=== PATIENT | female | born 1965 | race Caucasian/White ===

== ENCOUNTER 2022-06-14 11:10 | Outpatient (CLI) | payer MEDICARE, OTHER, SELFPAY | END 2022-06-14 11:11 | disposition home or self-care (01) | LOC: AMB 06-20 09:42 | PROVIDERS: PCP Family Medicine; Visit Provider Family Medicine | DX: R41.82 Altered mental status, unspecified (principal); R47.81 Slurred speech; R53.1 Weakness | CPT/HCPCS: A0425; A0427 ==

== ENCOUNTER 2022-06-14 11:41 | Emergency (ER) | payer MEDICARE, OTHER, SELFPAY ==
[2022-06-14] VITALS (10 sets, daily range): BP systolic 101–130; BP diastolic 60–90; PULSE 61–79; RESP 14–16; TEMP 36.8; O2SAT 94–98
--- NOTE | 2022-06-14 12:27 | CRLHL7_ITS ---
For Patients: As a result of the Cures Act, medical imaging exams and procedure reports are released immediately into your electronic medical record. You may view this report before your referring provider. If you have questions, please contact your health care provider. INDICATION: Fall, slurred speech, recent surgery, history of stroke, neck pain. COMPARISON: CT head 10/29/2021. TECHNIQUE: CT of the head without IV contrast. Coronal and sagittal reconstructions. FINDINGS: No intracranial hemorrhage, mass effect, or evidence of acute infarct. No midline shift. No abnormal extra-axial fluid collections. Mild generalized cerebral volume loss. Normal caliber ventricular system. Chronic encephalomalacia in the right cerebellum and left occipital lobe. Orbits and extraocular muscles are symmetric. Tiny polyp or mucous retention cyst in the left sphenoid sinus. The paranasal sinuses and mastoid air cells are otherwise clear. Metallic surgical material adjacent to the right posterior C1 arch. No acute fracture identified. Soft tissues are unremarkable. IMPRESSION: : No acute intracranial findings. Please note that all CT scans at this facility use dose modulation, iterative reconstruction, and/or weight-based dosing when appropriate to reduce radiation dose to as low as reasonably achievable. Dictated by An Rausch MD @ 06/14/2022 2:43:40 PM (Electronically Signed)
--- NOTE | 2022-06-14 12:27 | CRLHL7_ITS ---
For Patients: As a result of the Cures Act, medical imaging exams and procedure reports are released immediately into your electronic medical record. You may view this report before your referring provider. If you have questions, please contact your health care provider. Indication: Fall, shoulder pain, recent surgery Comparison: Two views left shoulder June 07, 2022 Technique: AP and lateral views left shoulder were obtained. Findings: There is no displaced fracture or dislocation. Again seen is total shoulder arthroplasty without evidence of obvious hardware failure. The soft tissues are unremarkable. Impression: Stable postoperative changes of the left shoulder status post arthroplasty without evidence of obvious hardware failure. Dictated by Kiran Chang MD @ 06/14/2022 2:35:52 PM (Electronically Signed)
--- NOTE | 2022-06-14 12:27 | CRLHL7_ITS ---
For Patients: As a result of the Cures Act, medical imaging exams and procedure reports are released immediately into your electronic medical record. You may view this report before your referring provider. If you have questions, please contact your health care provider. Indication: Fall, slurred speech, recent surgery, history of stroke, neck pain. Technique: CT of the cervical spine without IV contrast. Coronal and sagittal reconstructions. Comparison: CT of the cervical spine 02/19/2021. Findings: Exam significantly limited by streak artifact from extensive spinal hardware. There is posterior instrumented fusion of C2-T3 with solid bony fusion of the C3-C7 vertebral bodies. Hardware appears intact. No definite acute fracture identified. No traumatic malalignment. Metallic surgical material adjacent to the right posterior C1 arch. No obvious spinal canal stenosis. No prevertebral soft tissue swelling. Chronic encephalomalacia in the right cerebellum. The mastoid air cells are clear. The thyroid gland appears enlarged. The lung apices are clear. Impression: 1. Significantly limited exam due to streak artifact. No definite acute fracture identified. 2. Intact posterior instrumented fusion of C2-C3. Please note that all CT scans at this facility use dose modulation, iterative reconstruction, and/or weight-based dosing when appropriate to reduce radiation dose to as low as reasonably achievable. Dictated by An Rausch MD @ 06/14/2022 2:54:54 PM (Electronically Signed)
--- NOTE | 2022-06-14 12:34 | ED.AMS ---
HPI - Altered Mental Status General Time Seen by Provider: 12:15 Date Seen: 06/14/22 Chief Complaint: Altered Mental Status Stated Complaint: Confusion Time Seen by Provider: 06/14/22 12:13 Source: patient, EMS and RN notes reviewed Mode of arrival: EMS Limitations: altered mental status History of Present Illness HPI narrative: Angie is a 57-year-old female with past history of acute stroke not currently on any anticoagulants who is brought emergency room by EMS from her home for slurred speech and weakness. Angie states that she has been getting gradually weak and that she spent most of the day yesterday in bed. Today when she got out of bed her weakness was much worse and she felt like her legs were going to give out. She notes that she has fallen 3 times most recently yesterday. She think she hit her head because the back of her head and her upper neck hurts. She denies numbness or tingling of the extremities. She also notes the onset of blurred vision yesterday. She states that her last stroke which was 1 year ago presented as blurred vision. Again, the blurred vision started yesterday. She denies chest pain, shortness of breath or a cough. She states that she has not really been taking her pain medication. She does use medical marijuana that is prescribed. She has not had fever or chills. Patient is supposed to take aspirin daily as a prevention for stroke but states that it no longer comes in her regular pill pack and therefore she had to go buy some and because it is not in her pill pack she forgets to take it. Patient notes that she has had previous stenting and has aneurysms. MD complaint: altered mental status and weakness Onset (ago): day(s) Timing confirmed by: caregiver (Home health nurse had spoken to EMS who then spoke to me.) Severity: moderate Consistency of symptoms: getting Worse Context: other (Patient on narcotics for shoulder but states that she has not taken them recently.) Related Data Home Medications Medication Instructions Recorded Confirmed aspirin 325 mg tablet,delayed 325 mg PO DAILY tab 06/07/22 06/07/22 release atorvastatin 80 mg tablet 80 mg PO .Bedtime tab 06/07/22 06/07/22 bupropion HCl 150 mg 24 hr tablet, 150 mg PO DAILY 06/07/22 06/07/22 extended release cholecalciferol (vitamin D3) 125 5,000 unit PO DAILY tab 06/07/22 06/07/22 mcg (5,000 unit) tablet cyanocobalamin (vitamin B-12) 5,000 mcg PO DAILY 06/07/22 06/07/22 2,500 mcg tablet esomeprazole magnesium 40 mg 40 mg PO DAILY cap 06/07/22 06/07/22 capsule,delayed release furosemide 40 mg tablet 40 mg PO QDAY tab 06/07/22 06/07/22 magnesium gluconate 27.5 mg 27.5 mg PO DAILY tab 06/07/22 06/07/22 magnesium (500 mg) tablet meclizine 25 mg tablet 25 mg PO QDAY tab 06/07/22 06/07/22 oxycodone 5 mg tablet 5 mg PO QID tab 06/07/22 06/07/22 pregabalin 300 mg capsule 600 mg PO BID cap 06/07/22 06/07/22 quetiapine 50 mg tablet 50 mg PO .Bedtime tab 06/07/22 06/07/22 rizatriptan 10 mg tablet 10 mg PO .As Needed PRN 06/07/22 06/07/22 ropinirole 2 mg tablet 2 mg PO .Bedtime 06/07/22 06/07/22 sumatriptan 5 mg/actuation nasal 5 mg INTRANASAL .As Needed PRN 06/07/22 06/07/22 spray tramadol 50 mg tablet 50 mg PO Q8H tab 06/07/22 06/07/22 zonisamide 100 mg capsule 300 mg PO BID cap 06/07/22 06/07/22 Previous Rx's Medication Instructions Recorded acetaminophen 650 mg 1,300 mg PO .Every 8 Hours #180 tab 06/08/22 tablet,extended release cetirizine 10 mg tablet 10 mg PO DAILY #90 tab 06/08/22 diphenhydramine HCl 25 mg tablet 25 - 50 mg PO Q6H PRN #100 tab 06/08/22 (Benadryl Allergy) fluoxetine 40 mg capsule 80 mg PO DAILY #60 cap 06/08/22 fluticasone furoate 200 1 inh INHALATION QDAY #30 ea 06/08/22 mcg/actuation blister powder for inhalation (Arnuity Ellipta) lamotrigine 200 mg tablet 200 mg PO BID #60 tab 06/08/22 valacyclovir 500 mg tablet 500 mg PO DAILY #90 tab 06/14/22 Allergies Allergy/AdvReac Type Severity Reaction Status Date / Time acyclovir Allergy Mild rash Verified 06/07/22 12:34 shingles like benzoin Allergy Mild rash, Verified 06/07/22 12:34 blisters, itching Cephalosporins Allergy Mild Rash Verified 06/07/22 12:34 penicillin V Allergy Mild Rash Verified 06/07/22 12:34 adhesive Allergy Unknown contact Verified 06/07/22 12:34 dermatitis to tape amoxicillin Allergy Unknown Rash Verified 06/07/22 12:34 baclofen Allergy Unknown Rash Verified 06/07/22 12:34 cefaclor Allergy Unknown Rash Verified 06/07/22 12:34 chlorhexidine Allergy Unknown contact Verified 06/07/22 12:34 dermatitis fentanyl Allergy Unknown Hallucinati Verified 06/07/22 12:34 ng gabapentin Allergy Unknown muscular Verified 06/07/22 12:34 twitch, slurred speech nortriptyline Allergy Unknown Palpitation Verified 06/07/22 12:34 s NSAIDS (Non-Steroidal Allergy Unknown gastric Verified 06/07/22 12:34 Anti-Inflamma bypass silver Allergy Unknown contact Verified 06/07/22 12:34 dermatitis Milk solids Allergy Intermediate Vomiting Uncoded 06/07/22 12:34 RACHEL Allergy Mild rash Uncoded 06/07/22 12:34 needing early removal Pollen Allergy Unknown runny nose Uncoded 06/07/22 12:34 Soy Allergy Allergy Unknown Uncoded 06/07/22 12:34 Sulfamethoxazole / Allergy Unknown nausea, GI Uncoded 06/07/22 12:34 trimethoprim upset dermbond AdvReac Unknown contact Uncoded 06/07/22 12:34 dermatitis Review of Systems Status of ROS: Reports: 10 or more systems reviewed and unremarkable except as noted in History and below Const: Reports: fatigue and malaise; Denies: fever or chills Eyes: Reports: blurry vision ENMT: Denies: throat pain or difficulty swallowing Cardio: Denies: chest pain, palpitations, swelling of feet/ankles or shortness of breath with exertion Resp: Denies: shortness of breath or cough GI: Denies: abdominal pain, vomiting, diarrhea or difficulty swallowing : Denies: painful urination or urinary frequency Musculo: Reports: other (Left shoulder pain. Recent surgery and recent fall) Neuro: Reports: headache (After her fall yesterday), weakness in extremities and lack of coordination; Denies: numbness in extremities or dizziness Endo: Reports: fatigue PFSH PFS Medical History Encounter for screening for severe acute respiratory syndrome coronavirus 2 (SARS-CoV-2) infection Herpes labialis History of cerebrovascular accident Surgical History History of abdominoplasty History of arthroplasty of both knees History of bilateral cataract extraction History of carpal tunnel release of both wrists (2016) History of cholecystectomy History of foot surgery History of gastric bypass (1999) History of left shoulder replacement History of mastopexy History of neck surgery History of nevus excision History of sinus surgery History of spinal surgery History of total hysterectomy with bilateral salpingo-oophorectomy (BSO) History of tubal ligation Status post insertion of spinal cord stimulator Family History (Updated 06/04/22 @ 10:08 by Michael Bojorquez) Family/Other Breast cancer Lung cancer Father Cancer Coronary artery disease Sister Congenital heart defect Mother Pancreatic cancer, Onset Age: 60 Social History (Updated 06/04/22 @ 10:09 by Michael Bojorquez) Narrative: medical marijuana use chronic narcotic use medical cannabis use tobacco use Smoking Status: Current every day smoker Do you use any of these nicotine containing products: None Second hand tobacco smoke exposure: No How often do you have a drink containing alcohol: never How often do you have six or more drinks on one occasion: Never AUDIT-C Alcohol total score: 0 Non-prescribed substance use: marijuana (any form) Exam Const: Vital Signs, click to edit/add: Vital Signs - 24 hr 06/14/22 11:41 06/14/22 11:45 06/14/22 13:05 Temperature 98.2 F Pulse Rate [Right Pulse Oximeter] 67 64 64 Respiratory Rate 16 14 Blood Pressure [Ri ght Upper Arm] 101/60 101/60 109/74 Pulse Oximetry 96 96 98 06/14/22 14:30 06/14/22 15:00 06/14/22 15:30 Temperature Pulse Rate [Right Pulse Oximeter] 61 65 65 Respiratory Rate 16 Blood Pressure [Ri ght Upper Arm] 124/73 125/90 H 117/82 Pulse Oximetry 95 98 95 06/14/22 16:00 06/14/22 16:30 06/14/22 17:00 Temperature Pulse Rate [Right Pulse Oximeter] 79 71 Respiratory Rate Blood Pressure [Ri ght Upper Arm] 130/65 116/86 125/69 Pulse Oximetry 94 06/14/22 17:30 Temperature Pulse Rate [Right Pulse Oximeter] 75 Respiratory Rate Blood Pressure [Ri ght Upper Arm] 128/86 Pulse Oximetry 97 Documenting provider has reviewed patient's vital signs: yes Common normals: no apparent distress and oriented x3 Exam limitations: altered mental status (Appears very sleepy and slurred speech but content of speech is appropriate) General appearance: other (Attempts to talk past questions normal for this particular patient.) Orientation/consciousness: Yes oriented to person, Yes oriented to place and Yes oriented to time Other: Patient appears to be very sleepy. However she answers all my questions with multiple sentences and with detail. She is trying to keep her eyes closed but does open them up when I ask. EOM is full and pupils are equal round reactive. Her visual field seems to be cut in the periphery right greater than left. No nystagmus noted. Eyebrow raise smile symmetrical. Patient has tenderness in the a septal scalp and to a lesser extent over the superior cervical spine. Heart with regular rate and rhythm and lungs are clear to auscultation. Door Manager strength on the upper extremities symmetrical on left upper shoulder she has a healing surgical wound. There is some mild erythema but it is not warm to the touch. Abdomen is soft nontender. Lower extremities are with multiple tattoos. No excessive swelling. Calves without tenderness. Patient is able to lift leg off the gurney but struggles to do so strength is 4/5 lower extremities. But ankle strength toe strength intact. HENMT: Common normals: normocephalic Head and scalp: normocephalic Eye: Common normals: PERRL and conjunctivae normal General eye: normal appearance of both eyes Alignment: alignment normal Periorbital: periorbital findings normal Eyelid: eyelids normal Conjunctiva: conjunctiva(e) normal Pupil: PERRL Other: Patient appears to have a right peripheral field cut. Neck & C-Spine: Common normals: supple and no meningeal signs General: trachea midline Cervical spine: cervical spine tenderness (At the extreme top) C1 and C2 Resp: Common normals: normal respiratory effort and clear to auscultation bilaterally Auscultation: clear to auscultation bilaterally Cardio: Common normals: regular rate Rate: regular rate GI: Common normals: soft to palpation and non-tender Palpation: soft : Common normals: no CVA tenderness Bladder/kidney exam: no CVA tenderness Back & Pelvis: Common normals: no CVA tenderness and no thoracic nor lumbar tenderness Extremity: Common normals: normal to inspection Neuro: [place] Coma Scale: document GCS findings Nitin coma scale eye opening: To sound (3) Nitin coma scale verbal response: Orientated (5) Nitin coma scale motor response: Obey commands (6) Nitin coma scale total score: 14 Common normals: oriented x3, CN's II-XII intact bilaterally and moves all extremities (Decreased strength 4/5 on the lower extremities.) Sensorium/orientation: oriented to person, oriented to place, oriented to time and somnolent Meningeal signs: no meningeal signs Cranial nerves: CN normal except as noted Speech: abnormal speech (Slurred) Details: slurred Deep tendon reflexes: Rt Triceps (C7): 1+, Lt Triceps (C7): 1+, Rt Patellar (L4): 1+ and Lt Patellar (L4): 1+ Plantar reflex: equivocal: right and left Pupil exam: Normal pupillary reactivity/response: bilateral Psych: Common normals: cooperative Appearance: other (Multiple full body tattoos) Thought content: normal thought content Memory/cognition: memory grossly intact Insight: fair Judgement: judgment good Skin: Common normals: no rashes or lesions noted General skin exam: no rashes or lesions noted Course Course Hospital Course: At this time patient presents with multiple issues. First she fell yesterday and does have headache and point tenderness. We will obtain head and cervical spine CTs. Secondly she is slurring her speech and has increasing lower extremity weakness. We do not have an exact time of onset for this and therefore out of the window for any lytic therapy. She does have a history of acute stroke and is not currently on any anti-platelet or anticoagulation therapy. appears to be under the influence but denies to me any alcohol or narcotic use recently. Laboratory values currently pending. Certainly she is not in a position where she can care for herself. Reevaluation(s) Reevaluation #1: Head CT is normal at this time. I do speak with patient and her speech is much improved and she is asking for something to eat. I have suggested that she stay tonight in the hospital in she is declining. Reexamination notes improvement of her peripheral vision but not complete resolution of the deficit. Upon further discussion patient tells me that this has been ongoing for approximately a year. She states that daily she will get blurred vision starting in her right eye and then moving to the left. He is also complaining of a headache at this time. Again head CT is reassuring. She states that the morphine did not help and she states that she really does not want to take oxycodone. In the past she has had success with ketamine although states that it did give her a dysphoric reaction. I have asked her to try this again today. We will pre treat with Ativan 0.5 mg IV and give 20 mg of ketamine over 30 minutes by IV. Reevaluation #2: Patient continues to improve and now is headache free. She had no reaction to the ketamine. Consultations Consultation #1: [facility] is consulted. Dr. Delaney has seen this patient in the past. At this time given the fact that Angie has had improvement of her symptoms is sitting up and eating he does not feel we need to pursue an emergent MRI but would suggest that as an outpatient. He would like me to relate to the patient that she should stop smoking and we should have her back on aspirins. Vital Signs Vital signs: Initial Vital Signs Pulse Rate 67 06/14/22 11:41 Blood Pressure 101/60 06/14/22 11:41 Blood Pressure Mean 73 06/14/22 11:41 Blood Pressure Position Supine 06/14/22 11:41 Pulse Oximetry 96 06/14/22 11:41 Oxygen Delivery Method 06/14/22 11:41 Vital Signs Pulse Rate 67 06/14/22 11:41 Blood Pressure 101/60 06/14/22 11:41 Pulse Oximetry 96 06/14/22 11:41 Temperature 98.2 F 06/14/22 11:45 Pulse Rate 75 06/14/22 17:30 Respiratory Rate 16 06/14/22 14:30 Blood Pressure 128/86 06/14/22 17:30 Pulse Oximetry 97 06/14/22 17:30 MDM - Altered Mental Status MDM Narrative Medical decision making narrative: 1. Altered mentation-now resolved. His presentation was such as what we would see with narcotic overuse although she states she has not use narcotics recently. She was certainly weak on her lower extremities but there was no focal weakness. Face was symmetrical and content of speech was appropriate. Patient had a reassuring head CT. Patient will follow-up with her primary for outpatient MRI. She will also need to start back on her aspirin daily because she is at risk for stroke. At this time no evidence of large acute stroke, head bleed, infection. Further she is resolved of her symptoms. 2. Headache/migraine-patient much improved after ketamine and Ativan administration. Morphine had initially been given and objectively seemed to help but patient states it did not make her headache go away. 3. Frequent falls-shoulder without evidence of acute injury. Encouraged the use of a cane or walker. 4. Disposition-I have asked patient to consider overnight hospitalization for further monitoring but she declines. She has a friend on the phone and they feel it is safe for her to go home. Of course return to the ER for worsening symptoms. Addendum: I did call patient at home but there was no answer and left a message to ensure that she starts back on her aspirin. We did discuss this earlier but I wanted to reinforce that. Again would have liked to have had her stay overnight for observation but she has declined. Medical Records Attestation: I reviewed the patient's medical records. Lab Data Attestation: I reviewed the patient's lab results. Labs: Lab Results 06/14/22 06/14/22 06/14/22 Range/Units 12:48 12:48 13:25 WBC 4.48 L (4.50-11.00) K/uL RBC 3.77 L (4.00-5.20) m/uL Hgb 10.0 L (12.0-16.0) gm/dL Hct 31.6 L (33.0-51.0) % MCV 84 (80-100) fL MCH 27 (26-34) pg MCHC 32 (32-36) gm/dL Plt Count 246 (140-440) K/uL Neut % (Auto) 59.6 (42.0-72.0) % Lymph % (Auto) 26.3 (20-44) % [facility] % (Auto) 9.4 (0.0-11.0) % Eos % (Auto) 3.8 (0.0-7.0) % Baso % (Auto) 0.9 (0.0-3.0) % Neut # (Auto) 2.70 (1.7-7.0) K/uL Lymph # (Auto) 1.20 (0.90-2.90) K/uL [facility] # (Auto) 0.40 (0.00-0.90) K/UL Eos # (Auto) 0.20 (0.00-0.50) K/uL Baso # (Auto) 0.00 (0.00-0.30) K/uL Abs Immat Gran (auto) 0.00 (0.00-0.30) K/uL Diff Slide Review Acceptable Review (Acceptable) Sodium 138 (135-149) mmol/L Potassium 4.2 (3.6-5.1) mmol/L Chloride 111 (96-114) mmol/L Carbon Dioxide 21 (20-32) mmol/L BUN 21 (7-30) mg/dL Creatinine 0.7 (0.5-1.5) mg/dL Estimated GFR 100 ml/min Glucose 96 (60-115) mg/dL Calcium 8.4 (8.4-10.6) mg/dL Total Bilirubin 0.2 (0.1-1.5) mg/dL AST 34 (12-35) U/L ALT 27 (4-35) U/L Alkaline Phosphatase 97 (40-150) U/L Total Protein 6.0 (6.0-8.3) g/dL Albumin 3.5 (3.3-5.0) g/dL Urine Color (Yellow) Urine Appearance (Clear) Urine pH (5.0-8.5) Ur Specific [place] (1.000-1.030) Urine Protein (Negative) Urine Glucose (UA) (Negative) Urine Ketones (Negative) Urine Blood (Negative) Urine Nitrite (Negative) Urine Bilirubin (Negative) Urine Urobilinogen (0.2-1.0) Ur Leukocyte Esterase (Negative) SARS-CoV-2 (PCR) Negative SARS-CoV-2 (Negative) Influenza Type A (PCR) Negative PCR FLU A (Negative) Influenza Type B (PCR) Negative PCR FLU B (Negative) 06/14/22 Range/Units 16:00 WBC (4.50-11.00) K/uL RBC (4.00-5.20) m/uL Hgb (12.0-16.0) gm/dL Hct (33.0-51.0) % MCV (80-100) fL MCH (26-34) pg MCHC (32-36) gm/dL Plt Count (140-440) K/uL Neut % (Auto) (42.0-72.0) % Lymph % (Auto) (20-44) % [facility] % (Auto) (0.0-11.0) % Eos % (Auto) (0.0-7.0) % Baso % (Auto) (0.0-3.0) % Neut # (Auto) (1.7-7.0) K/uL Lymph # (Auto) (0.90-2.90) K/uL [facility] # (Auto) (0.00-0.90) K/UL Eos # (Auto) (0.00-0.50) K/uL Baso # (Auto) (0.00-0.30) K/uL Abs Immat Gran (auto) (0.00-0.30) K/uL Diff Slide Review (Acceptable) Sodium (135-149) mmol/L Potassium (3.6-5.1) mmol/L Chloride (96-114) mmol/L Carbon Dioxide (20-32) mmol/L BUN (7-30) mg/dL Creatinine (0.5-1.5) mg/dL Estimated GFR ml/min Glucose (60-115) mg/dL Calcium (8.4-10.6) mg/dL Total Bilirubin (0.1-1.5) mg/dL AST (12-35) U/L ALT (4-35) U/L Alkaline Phosphatase (40-150) U/L Total Protein (6.0-8.3) g/dL Albumin (3.3-5.0) g/dL Urine Color Yellow (Yellow) Urine Appearance Clear (Clear) Urine pH 6.5 (5.0-8.5) Ur Specific [place] 1.020 (1.000-1.030) Urine Protein Negative (Negative) Urine Glucose (UA) Negative (Negative) Urine Ketones Negative (Negative) Urine Blood Negative (Negative) Urine Nitrite Negative (Negative) Urine Bilirubin Negative (Negative) Urine Urobilinogen 0.2 (0.2-1.0) Ur Leukocyte Esterase Negative (Negative) SARS-CoV-2 (PCR) (Negative) Influenza Type A (PCR) (Negative) Influenza Type B (PCR) (Negative) Imaging Data CT scan - head: Attestation: I have reviewed the pertinent imaging results. My impression: No evidence of acute bleed. Radiologist's impression: No acute findings. cervical spine: Attestation: I have reviewed the pertinent imaging results. My impression: I do not note any acute cervical injury. Radiologist's impression: No acute fractures. left shoulder: Attestation: I have reviewed the pertinent imaging results. Radiologist's impression: No acute injury. Discharge Plan Discharge Clinical Impression: Chronic pain, 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), Altered mental status Patient Disposition: Home, Self-Care Condition: Improved Additional Instructions: Recommend follow-up with your primary MD for outpatient MRI current [facility]. Use walker or cane to prevent falls. Return to the emergency room for worsening symptoms. Activity Level: Use Cane and Use Walker Prescriptions: No Action pregabalin 300 mg capsule 600 mg PO BID 0RF zonisamide 100 mg capsule 300 mg PO BID 0RF furosemide 40 mg tablet 40 mg PO QDAY 0RF sumatriptan 5 mg/actuation spray,non-aerosol 5 mg intranasal .As Needed PRN0RF Rx Instructions: 1-2 SPRAYS IN ONE NOSTRIL AT ONSET OF HEADACHE, MAY REPEAT Q2H PRN, MAX 4 SPRAYS/24 HRS rizatriptan 10 mg tablet 10 mg PO .As Needed PRN0RF Rx Instructions: TAKE ONE TAB AT ONSET OF HEADACHE, MAY REPEAT Q2H PRN, MAX 30 MG/24 HRS esomeprazole magnesium 40 mg capsule,delayed release(DR/EC) 40 mg PO DAILY 0RF quetiapine 50 mg tablet 50 mg PO .Bedtime 0RF ropinirole 2 mg tablet 2 mg PO .Bedtime 0RF aspirin 325 mg tablet,delayed release (DR/EC) 325 mg PO DAILY 0RF atorvastatin 80 mg tablet 80 mg PO .Bedtime 0RF bupropion HCl 150 mg tablet extended release 24 hr 150 mg PO DAILY 0RF magnesium gluconate 27.5 mg magne- sium (500 mg) tablet 27.5 mg PO DAILY 0RF cholecalciferol (vitamin D3) 125 mcg (5,000 unit) tablet 5,000 unit PO DAILY 0RF cyanocobalamin (vitamin B-12) 2,500 mcg tablet 5,000 mcg PO DAILY 0RF meclizine 25 mg tablet 25 mg PO QDAY 0RF oxycodone 5 mg tablet 5 mg PO QID 0RF tramadol 50 mg tablet 50 mg PO Q8H 0RF Arnuity Ellipta 200 mcg/actuation blister with device 1 inh inhalation QDAY Qty: 30 12RF diphenhydramine HCl [Benadryl Allergy] 25 mg tablet 25 - 50 mg PO Q6H PRN (Reason: allergy symptoms) Qty: 100 5RF lamotrigine 200 mg tablet 200 mg PO BID Qty: 60 12RF cetirizine 10 mg tablet 10 mg PO DAILY Qty: 90 3RF fluoxetine 40 mg capsule 80 mg PO DAILY Qty: 60 12RF acetaminophen 650 mg tablet extended release 1,300 mg PO .Every 8 Hours Qty: 180 12RF valacyclovir 500 mg tablet 500 mg PO DAILY Qty: 90 3RF Follow Up/Referrals: Clemente Blackwell MD [Primary Care Provider] - Stand Alone Forms: [facility] Info Instructions
[2022-06-14 12:58] LABS: Basophils Percent Auto 0.9 % (0.0-3.0); Eosinophils Percent Auto 3.8 % (0.0-7.0); Hematocrit 31.6 % (33.0-51.0); Lymphocytes Percent Auto 26.3 % (20-44); Mean Corpuscular HGB Conc 32 gm/dL (32-36); Mean Corpuscular Hemoglobin 27 pg (26-34); Mean Corpuscular Volume 84 fL (80-100); Monocytes Percent Auto 9.4 % (0.0-11.0); Neutrophils Percent Auto 59.6 % (42.0-72.0); Platelet Count* 246 K/uL (140-440); Red Blood Count 3.77 m/uL (4.00-5.20); White Blood Count* 4.48 K/uL (4.50-11.00)
[2022-06-14] MEDS: 0.9 % SODIUM CHLORIDE 1000 ml 1,000 ML IV (13:11)
[2022-06-14 13:12] LABS: Slide Review Reflex Yes
[2022-06-14 13:16] LABS: Albumin* 3.5 g/dL (3.3-5.0)
[2022-06-14 13:17] LABS: Chloride* 111 mmol/L (96-114); Potassium* 4.2 mmol/L (3.6-5.1); Sodium* 138 mmol/L (135-149)
[2022-06-14 13:19] LABS: Aspartate Amino Transferase* 34 U/L (12-35); Bilirubin Total* 0.2 mg/dL (0.1-1.5); Carbon Dioxide* 21 mmol/L (20-32); Creatinine* 0.7 mg/dL (0.5-1.5); Estimated Glomerular Filt Rate 100 ml/min
[2022-06-14 13:20] LABS: Alanine Aminotransferase* 27 U/L (4-35); Alkaline Phosphatase* 97 U/L (40-150); Blood Urea Nitrogen* 21 mg/dL (7-30); Calcium* 8.4 mg/dL (8.4-10.6); Glucose* 96 mg/dL (60-115)
[2022-06-14 13:54] LABS: Slide Review Acceptable Review (Acceptable)
[2022-06-14] MEDS: MORPHINE 4 MG/ML INJ IVP (14:24)
[2022-06-14 14:32] LABS: PCR FLU A Negative PCR FLU A (Negative); PCR FLU B Negative PCR FLU B (Negative)
[2022-06-14 14:34] LABS: SARS PCR* Negative SARS-CoV-2 (Negative)
[2022-06-14 16:31] LABS: Appearance Urine Clear (Clear); Bilirubin Urine Negative (Negative); Blood Urine Negative (Negative); Color Urine Yellow (Yellow); Glucose Urine Negative (Negative); Ketones Urine Negative (Negative); Leukocyte Esterase Urine Negative (Negative); Nitrite Urine Negative (Negative); Protein Urine Negative (Negative); Urobilinogen Urine 0.2 (0.2-1.0); pH Urine 6.5 (5.0-8.5)
[2022-06-14] MEDS: LORazepam 2 MG/ML inj 0.5 MG IVP (16:42)
[2022-06-14] MEDS: KETAMINE HCL 20 MG in 0.9 % SODIUM CHLORIDE 100 ml 100 ML 300.6 MG IVPB (16:46)
--- OUTSIDE RECORDS SUMMARY | 2022-07-06 14:46 | XMS_ITS | Encounter Summary ---
:1965 Author Organization [facility] Address [address] [place] [address] Care Team Providers Name Role Phone Elsewhere, Pcp Primary Care Provider Unavailable Encounter Details Date Type Department Care Team Description 05/18/2022 - Hospital Encounter [facility] Mable Polk In fection Of Left Shoulder In Infectious And Parasitic Diseases Classified Elsewhere (HCC) (Primary Dx); 05/20/2022 Hospital, [facility] Cyrus Souza M.D. Shoulder Joint Disorder Left; [place], [facility] [address] [facility] Pain Shoulder Left; Building, [place], [place] Primary Os teoarthritis Shoulder Left Floor [id number] [address] [facility] [phone] [place], [place] (Work) [phone] Social History Tobacco Use Types Packs/Day Years Used Date Smoking Tobacco: Every Day Cigarettes 0.3 30 S tarted: 11/28/1977 Smokeless Tobacco: Never Comments: Since teens, used to be 2 ppd, now 1/2 ppd. Roughly 40 pack year estimate Alcohol Use Standard Drinks/Week Comments No 0 (1 standard drink = 0.6 oz pure alcoho l) Daily caffeine Alcohol Habits Answer Date Recorded How often do you have a drink containing alcohol? Never 05/17/2022 How many drinks containing alcohol do you have on a Patient refused 10/02/2019 typical day when you are drinking? How often do you have six or more drinks on one Never 10/02/2019 occasion? Comment: Daily caffeine 12/30/2021 Social Isolation Answer Date Recorded In a typical week, how many times do you More than three abrahan es a week 05/17/2022 talk on the phone with family, friends, or neighbors? How often do you get together with friends More than three t imes a week 05/17/2022 or relatives? How often do you attend restoration or Patient refused 2021 moravian services? Do you belong to any clubs or No 05/17/2022 organizations such as restoration groups, unions, fraternal or athletic groups, or school groups? How often do you attend meetings of the Never 05/17/2022 clubs or organizations you belong to? Are you now , , , 05/17/2022 , never or living with a partner? Physical Activity Answer Date Recorded On average, how many days per week do you engage in moderate to 0 days 05/17/2022 strenuous exercise (like walking fast, running, jogging, dancing, swimming, biking, or other activities that cause a light or heavy sweat)? On average, how many minutes do you engage in exercise at th is 0 min 05/17/2022 level? Stress Answer Date Recorded Do you feel stress - tense, restless, nervous, or anxious, o r Very much 05/17/2022 unable to sleep at night because your mind is troubled all the time - these days? Financial Resource Strain Answer Date Recorded How hard is it for you to pay for the very basics like food, Very hard 03/24/2021 housing, medical care, and heating? Intimate Partner Violence Answer Date Recorded Within the last year, have you been afraid of your partner o r No 05/17/2022 ex-partner? Within the last year, have you been humiliated or emotionall y No 05/17/2022 abused in other ways by your partner or ex-partner? Within the last year, have you been kicked, hit, slapped, or No 05/17/2022 otherwise physically hurt by your partner or ex-partner? Within the last year, have you been raped or forced to have any No 05/17/2022 kind of sexual activity by your partner or ex-partner? Food Insecurity Answer Date Recorded Within the past 12 months, you worried that your food Someti mes true 05/17/2022 would run out before you got money to buy more. Within the past 12 months, the food you bought just Often tr ue 05/17/2022 didn't last and you didn't have money to get more. Transportation Needs Answer Date Recorded In the past 12 months, has lack of transportation kept you f rom Yes 05/17/2022 medical appointments or from getting medications? In the past 12 months, has lack of transportation kept you f rom Yes 05/17/2022 meetings, work, or getting things needed for daily living? Housing Stability Answer Date Recorded In the last 12 months, was there a time when you were not ab le Yes 03/24/2021 to pay the mortgage or rent on time? In the last 12 months, how many places have you lived? 1 03/24/2021 In the last 12 months, was there a time when you did not hav e a No 05/17/[address] to sleep or slept in a skilled nursing (including now)? Education Answer Date Recorded What is the highest level of school Associate degree: [employer], 03/24/2021 you have completed or the highest technical, or vocational p john degree you have received? Sex Assigned at Date Recorded Female 03/01/2019 10:12 AM CDT documented as of this encounter Last Filed Vital Signs Vital Sign Reading Time Taken Comments Blood Pressure 122/68 05/20/2022 12:35 PM CDT Pulse 98 05/20/2022 12:35 PM CDT Temperature 36.8 ??C (98.24 ??F) 05/20/2022 12:35 PM CDT Respiratory Rate 16 05/20/2022 12:35 PM CDT Oxygen Saturation 93% 05/20/2022 12:35 PM CDT Inhaled Oxygen Concentration - - Weight 66.1 kg (145 lb 11.6 oz) 05/18/2022 9:00 AM CDT Height 151 cm (4' 11.45) 05/18/2022 9:00 AM CDT Body Mass Index 28.99 05/18/2022 9:00 AM CDT documented in this encounter Discharge Summaries Kaushik Cadena M.D. - 05/20/2022 10:22 AM CDT DISCHARGE SUMMARY BRIEF OVERVIEW Hospital: [facility] Discharge Provider: Cyrus Polk M.D. Primary Team: RST Orthopedic Surgery - aJm Primary Care Providers: Elsewhere, Pcp (General) No address on file Primary Care Provider Phone Number: None Primary Care Provider Fax Number: None Other Providers: None Admission Date: 05/18/2022 Discharge Date: 05/20/22 PRINCIPAL DIAGNOSIS Primary Osteoarthritis Shoulder Left SECONDARY DIAGNOSES Principal Problem: Primary Osteoarthritis Shoulder Left Resolved Problems: * No resolved hospital problems. * Surgery Information This Encounter Past Procedures (05/19/2021 to Today) Date Procedures Providers Location 05/18/2022 ARTHROPLASTY REPLACEMENT TOTAL SHOULDER. Cyrus Polk M.D.Wasserburger, Jory N, M.D.Markos, James R, M.D. [facility] OR DISCHARGE DISPOSITION [place] [facility] [place]] ACTIVE ISSUES REQUIRING FOLLOW UP This document serves as a prescription to continue physical therapy, medications, and labs or x-raysif ordered/required. If you have any questions or concerns about surgery or upcoming appointments, please do not hesitateto contact Dr. Polk's office at [phone] during regular business hours (8am-5pm M-F). For emergencies on the weekend or after hours, you may contact Dr. Polk's service via the [facility] tenon machine operator at [phone]. Details for your 6 week follow-up appointment with Dr. Polk will be mailed to you. You will see Dr. Polk and the physical therapist at the post-op visit. If you have questions regarding this appointment please contact Dr. Polk's office. X-rays: If you are unable to make your follow up appointment you may have x-rays taken of your operative extremity and sent to Dr. Polk for review and to discuss future therapy. They should consistof the following 3 views: AP Internal, AP External and Axillary views. These may be done by an orthopedist or primary care provider. *This document serves as a prescription for these x-rays* Please send all correspondence and X-rays to: Cyrus Polk MD Dept of Orthopedics [address], [address] None OUTPATIENT FOLLOW UP For appointment details refer to your Patient Appointment Guide. TEST RESULTS PENDING AT DISCHARGE Pending Labs Order Current Status Bacteria Cult, Aerobe / Anaerobe+Susc In process Bacteria Cult, Aerobe / Anaerobe+Susc In process Bacteria Cult, Aerobe / Anaerobe+Susc In process Surgical Pathology, Frozen Lab Preliminary result DETAILS OF HOSPITAL STAY REASON FOR ADMISSION Shoulder Joint Disorder Left HOSPITAL COURSE Surgery Information This Encounter Past Procedures (05/19/2021 to Today) Date Procedures Providers Location 05/18/2022 ARTHROPLASTY REPLACEMENT TOTAL SHOULDER. Cyrus Polk M.D.Wasserburger, Jory N, M.D.Markos, James R, M.D. [facility] OR Angie Mosquera was taken to the operative room by Dr. Polk for the procedure listed above. The intraoperative as well as the immediate postoperative course were uncomplicated. For further details of the surgery please see the operative note. The patient was transferred from the PACU to the general care floor for continued observation and monitoring. She progressed in the usual post-operative fashion without complications. Physical exam was notablefor intact sensation and motor function of the operative extremity and easily palpable radial pulse.Incision clean, dry, and intact. She will be NWB in a sling for 6 weeks with no range of motion of the shoulder or elbow during this time period and no dangling. The patient was treated with perioperative IV antibiotics. She was given liquids by mouth and eventually advanced as tolerated towards a more general diet. Her pain was well controlled with oral pain medications. Physical therapy / Occupational therapy was consulted for assistance with mobilization and gait training. She was mobilizing without difficulty and was compliant with any activity restrictions. Her incision remained intact with noconcerns. Her bowel and bladder function were acceptable. She then met criteria for discharge and was later dismissed from the hospital. For any further details please see the most recent orthopedic surgery progress note and any other co-managing teams dated 05/19/2022. CONSULTS ORDERED DURING THIS ADMISSION IP CONSULT TO CARE MANAGEMENT IP CONSULT TO CARE MANAGEMENT CONDITION AT DISCHARGE stable Discharge instructions were provided to the patient and caregiver(s). documented in this encounter Medications at Time of Discharge Medication Sig Dispensed Refills Start Date End Date acetaminophen (TYLENOL) Take 2 capsules (1,000 0 01/01/2022 500 mg capsule mg total) by mouth every 6 (six) hours as needed for pain. Start the day of surgery. albuterol (PROVENTIL Inhale 2 puffs every 6 0 HFA,VENTOLIN HFA) 90 (six) hours as needed mcg/actuation inhaler for wheezing or shortness of breath. Arnuity Ellipta 100 Inhale 1 puff daily. 0 2021 mcg/actuation diskus inhaler aspirin 325 mg tablet Take 1 tablet (325 mg 0 12/2021 total) by mouth every evening. atorvastatin (LIPITOR) 80 Take 1 tablet (80 mg 90 tablet 3 02/17/2021 mg tablet total) by mouth at bedtime. benzonatate (TESSALON Take 100 mg by mouth 3 6 PERLES) 100 mg capsule (three) times a day as needed for cough. buPROPion XL (WELLBUTRIN Take 150 mg by mouth 0 0 02/04/2021 XL) 150 mg 24 hr tablet every morning. butalbital-acetaminophen- Take 1 tablet by mouth 0 02/27/2021 caff (ESGIC) 50-325-40 mg every 6 (six) hours as per tablet needed for migraine. cetirizine (ZyrTEC) 10 mg Take 10 mg by mouth 2 0 tablet (two) times a day. cholecalciferol (VITAMIN Take 125 mcg by mouth 0 D3) 125 mcg (5,000 Unit) every morning. tablet clindamycin (CLEOCIN T) 1 Apply 1 application 0 0 02/22/2022 % external solution topically 2 (two) times a day. Apply to face. cyanocobalamin, vitamin Take 1 tablet by mouth 0 01/28/2022 B-12, 2,500 mcg lozenge daily. diazePAM (VALIUM) 10 mg Take 10 mg by mouth 2 0 0 02/14/2019 tablet (two) times a day as needed. diclofenac sodium Apply 2-4 g topically 0 022 (VOLTAREN) 1 % gel 4 (four) times a day as needed. diphenhydrAMINE Take 75 mg by mouth at 0 (BENADRYL) 25 mg tablet bedtime. esomeprazole (NexIUM) 40 Take 40 mg by mouth 2 0 11/19/[address] capsule (two) times a day before breakfast and dinner. FLUoxetine (PROzac) 40 mg Take 80 mg by mouth 0 capsule every morning. furosemide (LASIX) 40 mg Take 40 mg by mouth 0 tablet daily. ipratropium-albuteroL Inhale 3 mL by 0 01/16/2021 (DUONEB) 0.5-2.5 mg/3 mL nebulization 4 (four) nebulizer solution times a day as needed for shortness of breath or wheezing. lamoTRIgine (LaMICtal) Take 200 mg by mouth 2 3 0 02/08/2019 200 mg tablet (two) times a day. MAG-G 27 mg magnesium Take 1 tablet by mouth 3 (500 mg) tablet at bedtime. meclizine (ANTIVERT) 25 Take 25 mg by mouth 0 mg tablet every 6 (six) hours as needed for dizziness. medical cannabis capsule Take 1-4 capsules by mouth 2 (two) times a day as needed (pain). THC component: 10 mg 0 CBD component: 0 mg medical cannabis oil Inhale as needed 0 inhalation (pain). Vape THC: 5 mg dose - per pt medical cannabis oil oral Take 1 each by mouth 0 as needed (pain). 1 spray as needed. 5 mg THC multivit-min/iron/folic/h Take 1 tablet by mouth 0 [id number] (HAIR, SKIN AND daily. NAILS ADVANCED ORAL) ondansetron ODT Take 1 tablet by mouth 0 01/16/20 10 (ZOFRAN-ODT) 8 mg 3 (three) times a day disintegrating tablet as needed for nausea. oxyCODONE (ROXICODONE) 10 Take 10 mg by mouth 0 0 02/24/2022 mg IR tablet every 4 (four) hours as needed for pain. oxyCODONE (ROXICODONE) 5 Take 1 tablet (5 mg 30 tablet 0 mg immediate release total) by mouth every tabletIndications: Acute 4 (four) hours as Pain, Acute Pain needed for severe pain Exception or score 7-10 of 10 Indication: Acute Pain, Acute Pain Exception. polyethylene glycol Take 17 g by mouth as 0 04/11 (MIRALAX) 17 gram/dose needed for oral powder constipation. pregabalin (LYRICA) 300 Take 600 mg by mouth 2 0 09/18/2020 mg capsule (two) times a day. QUEtiapine (SEROquel) 50 Take 50 mg by mouth at 0 08/19/2020 mg tablet bedtime. rOPINIRole (REQUIP) 2 mg Take 2 mg by mouth at 0 01/28/2022 tablet bedtime. sennosides-docusate Take 1 tablet by mouth 0 04/0 11/2021 sodium (SENOKOT-S) 8.6-50 2 (two) times a day. mg per tablet tiZANidine (ZANAFLEX) 4 Take 4-8 mg by mouth 1 mg tablet every 8 (eight) hours as needed for muscle spasms. Muscle spasms traMADoL (ULTRAM) 50 mg Take 1 tablet (50 mg 24 tablet 0 tabletIndications: Acute total) by mouth every Pain, Acute Pain 6 (six) hours as Exception needed for severe pain or score 7-10 of 10 Indications: Acute Pain, Acute Pain Exception. valACYclovir (VALTREX) Take 500 mg by mouth 0 500 mg tablet daily. zonisamide (ZONEGRAN) 100 Take 300 mg by mouth 2 8 02/22/2019 mg capsule (two) times a day. documented as of this encounter Progress Notes Jey Harper P.T., D.P.T. - 05/20/2022 12:01 PM CDT Physical Therapy Inpatient Treatment Note SUBJECTIVE Patient's Name: Angie Mosquera Referring/Attending: Cyrus Polk M.D. 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 patient was very excited about the prospect of getting an electric scooter. Patient Comments: Patient supine in bed upon therapist arrival; patient agreeable to therapy. Precautions Weight Bearing Status: Nonweightbearing left upper extremity Other Precautions: No shoulder elbow or wrist range of motion, no dangling. patient to be in immobilizer at all times unless bathing or changing clothes in order to reduce risk of dislocation Fall Risk (65 and older) Fall in the last 12 months: Yes Did you have an injury with the fall?: No Are you fearful of falling?: No Fall Risk Comments: Patient reports tripping as the primary reason for her falls in the last year, reports only bruising OBJECTIVE Angie's NOHARM modalities were used during their therapy session. Vitals stable per chart review. Patient denies dizziness, lightheadedness, shortness of breath, chest pain, and diaphoresis with mobility this session. Treatment consisted of: Bed Mobility - Supine to Sit Level of Assistance: Modified Independent Device: Head of bed elevated Bed Mobility - Sit to Supine Level of Assistance: Modified Independent Device: Head of bed elevated Sit to Stand Transfers # of Assistants: 1 Transfer Surface: Bed Transfer Equipment: Gait belt Level of Assistance: Supervision/set-up Assessment/Delivery: Assessed Comments: patient is able to complete sit to and from stand transfers without the need for physical assistance Stand to Sit Transfers # of Assistants: 1 Transfer Surface: Bed Transfer Equipment: Gait belt Level of Assistance: Supervision/set-up Assessment/Delivery: Assessed Gait Assessment/Training Distance (m): 70 m Surface: Even, Smooth/hard Device: Gait belt, Single point cane # of Assistants: 1 Level of Assistance: Supervision/Set-up Assessment of Gait: Patient ambulates with increased lateral trunk sway, and no left upper extremityswing due to sling. patient is able to appropriately utilize single-point cane for balance. Single-point cane was utilized during today's session as opposed to quad cane, as patient states she does notbelieve she owns a quad cane anymore, but owns a single-point cane. There appears to be no significant difference in patient's quality of gait with 1 versus the other. Patient and/or caregiver instructed and demonstrated understanding in the following: -Positioning in supine and sitting using folded towels under elbow -Positioning for sleeping to ensure appropriate support of surgical arm -Donning/doffing sling for axillary hygiene, and donning/doffing shirt (reviewed but not performed as patient is familiar from previous surgeries. patient states she is going to buy additional clothingthat she can slide on and off over the sling so that she does not have to don and doff sling) -Proper fitting and adjustment of the shoulder immobilizer -Donning/doffing and fitting of shower sling (reviewed but not performed as patient is familiar fromprevious surgeries) Patient's nurse was contacted and patient's status was discussed Patient was left in bed at end of session with call light in reach, all needs met and questions answered. Contact monitoring: PPE used during therapy: Therapist was wearing the following PPE throughout entire session: surgicalmask, eye protection and gloves Patient was wearing a mask during therapy session: yes Outcome Measures [facility] Inpatient Short Form: -[facility] Basic Mobility (V.2) How much help from another person do you currently need???If the patient hasn't done an activity recently, how much help from another person do you think he/she would need if he/she tried? 1. Turning from your back to your side while in a flat bed without using bedrails?: A Little 2. Moving from lying on your back to sitting on the side of a flat bed without using bedrails?: A Little 3. Moving to and from a bed to a chair (including a wheelchair)?: A Little 4. Standing up from a chair using your arms (e.g., wheelchair, or bedside chair)?: A Little 5. To walk in hospital room?: A Little 6. Climbing 3-5 steps with a railing?: A Little -[facility] Basic Mobility (V.2) Raw Score: 18 -[facility] Basic Mobility (V.2) Standardized Score: 41.05 Interpretation: Clinicians answer the [facility] Inpatient Short Form based on observed patient activityand/or clinical judgement (ie. patient can be scored without physically performing each activity) Based on scoring guidelines using the raw score value: Those going to home had an average score at or above 18 Those going to facility had an average score at or below 17 Assessment Discharge Therapy Needs - PT: No further skilled therapy Skilled therapy can include physical therapy provided by home health, outpatient clinic, or a post-acute facility. The location of these services is determined by the patient's care team in partnershipwith patient/family. Equipment Recommended - PT: Single-point cane owns Barriers to Discharge Home: Fall risk, Safety concerns From a physical therapy perspective, the level of care above has been recommended for Ms. Mosquera after hospital discharge. This level of care is based on her functional abilities during today's session. This may change throughout the hospital course and will be updated as appropriate. Clinical Impression of today's session: During today's session all home going self-care/home management tasks were reviewed, however most were not practiced, as patient is familiar from previous surgeries (to limit time out of sling immobilizer). Patient also demonstrates the ability to ambulate greater than household distances with appropriate use of single-point cane for balance. Education points described above. Patient reports feeling comfortable returning home at current mobility level and denies having any additional questions or need for therapy. All acute PT goals met; from a mobility standpoint patient is safe to discharge home with use of single- point cane and intermittent assistance for dressing and bathing. Dismissed from Physical Therapy. Rehab potential: Ms. Mosquera has Good potential to achieve established physical therapy goals withinthe time frame outlined below. Progress: All PT goals achieved Functional Goals and Timeframes: PT Inpatient Goals PT Goal #1: Patient will be able to perform bed mobility per home setup with supervision to improve functional independence. PT Goal #1 Status: Achieved PT Goal #2: Patient and helper will be able to teach back with demonstration the seated edge of bed technique with the use of pillows to support the arm for shirt, shower sling and daily sling donning and doffing. PT Goal #2 Status: Achieved PT Goal #3: Patient will ambulate 35m with least restrictive gait aid with supervision assist for improved independence with mobility and to return to prior level of function. PT Goal #3 Status: Achieved Plan Treatment Plan: Plan: Discontinue PT PT Frequency: PT Inpatient Duration : Until goals are met or hospital discharge Requires Inpatient Follow-Up: No PT Plan Comments: Patient does not require follow-up as all acute therapy goals are met Treatment interventions may include: Treatment/Interventions: Therapeutic exercise, Therapeutic functional activity, Self-care/home management Billing: Time Spent with Patient Therapeutic Interventions Therapeutic Activity (min): 27 min Time Tracking Total Timed Units (min): 27 min Total Treatment Time (min): 27 min Jey Harper P.T., D.P.T. Kaushik Cadena M.D. - 05/20/2022 7:31 AM CDT SUBJECTIVE Angie J. Demetri was examined in her hospital room this morning and this afternoon. She did better overnight with pain control improved. Her hemoglobin this morning is 8.4 and she is asymptomatic. Shehas done well with PT/OT. Denies chest pain, shortness of breath, fever, chills, nausea, vomiting. Voiding independently. Tolerating p.o. well. OBJECTIVE VITAL SIGNS Temperature: [36.2 ??C-36.7 ??C] 36.7 ??C Resp Rate: [12-14] 12 Blood Pressure: (77-127)/(51-101) 121/101 SpO2: [95 %-99 %] 98 % Pulse Rate: [57-84] 84 I/O last 3 completed shifts: In: 742 [P.O.:742] Out: 350 [Urine:350] PHYSICAL EXAM General: Resting in bed. Answers questions appropriately. Musculoskeletal: Operative extremity with sling immobilizer in place. Incision clean, dry, and intact with Steri-Strips in place. Dressing changed to Aquacel as patient had itching with Prim[place]. Intact median, radial and ulnar motor function. Sensation intact in axillary, radial, median, and ulnar nerve distributions. Palpable radial pulse. Fingers warm and well-perfused. DIAGNOSTICS Recent Results (from the past 24 hour(s)) CBC with Differential, Blood Collection Time: 05/20/22 3:43 AM Result Value Hemoglobin 8.4 (L) Hematocrit 27.1 (L) Erythrocytes 3.50 (L) MCV 77.4 (L) RBC Distrib Width An accurate RDW can not be determined. Platelet Count 256 Leukocytes 5.8 Neutrophils 4.07 Lymphocytes 1.26 Monocytes 0.39 Eosinophils 0.11 Basophils <0.03 IMAGING No results found. ASSESSMENT / PLAN IMPRESSION/REPORT/PLAN #1 s/p revision left reverse total shoulder arthroplasty Ms. Mosquera is doing well on POD#2. Her pain control is improved and we have a good plan in place for postoperative pain control on top of her chronic pain regimen. Incision is CDI and dressing changedto Aquacel due to itching which should be removed after 5 days. Her neurovascular exam is fully intact. Hemoglobin is 8.4 this morning and she is asymptomatic from an anemia perspective. She will continue ot be NWB LUE for 6 weeks in a sling immobilizer at all times with no ROM or dangling. She can come out of this for showers in a shower sling but should have this on otherwise. We will plan to discharge today after working with PT/OT again. She should follow up with her PCP regarding an electric scooter for community ambulation as there is no clear indication for this with her shoulder surgery. Active Issues # Acute blood loss anemia - last Hgb 8.4, asymptomatic # postoperative pain control - no longer requiring IV pushes Activity: NWB operative extremity. No ROM or dangling. Sling immobilizer for 6 weeks. May use showersling but otherwise should remain in sling immobilizer. Labs: Hgb 8.4 asymptomatic Pain: multimodal regimen including cold compress, acetaminophen and oxycodone prn VTE Prophylaxis: pharmacoprophylaxis not indicated, recommend early ambulation and SCD's Cultures: NGTD Antibiotics: 24-hour perioperative course of IV antibiotics Diet: Adult Diet Regular Discharge Diet for Adults Bowel Regimen: Sennakot S Imaging: postop X-rays obtained and reviewed which demonstrate a well positioned revision left reverse total shoulder arthroplasty Consults: PT/OT Anticipated Disposition: home today 05/20 Miguelina Cadena M.D. PGY-1 Orthopaedic Surgery For any questions or concerns from 6 am until 6 pm, please page [facility] at [phone] For urgent matters from 6 pm until 6 am, please page [facility] at [facility] [phone] Jane Nguyen Pharm.D., R.Ph. - 05/19/2022 8:12 AM CDT Pharmacist Progress Note Reason for admission: ARTHROPLASTY REPLACEMENT TOTAL SHOULDER. on 05/18/2022 Past Medical History: Diagnosis Date ??? Anemia hx iron infusions ??? Anxiety Generalized Disorder ??? Arthritis ??? Asthma NOS ??? Cardiac Disease Hx PFO ??? Chronic Pain Syndrome ??? Fibromyalgia ??? Gastroesophageal Reflux Disease NOS ??? Migraine Headache ??? Pain Back ??? Personal History Unintended Awareness Under General Anesthesia ??? Post Operative Nausea/Vomiting ??? Sickness Motion Personal History ??? Stroke (HCC) 03/2019 ??? Transient Ischemic Attack OBJECTIVE ARTHROPLASTY REPLACEMENT TOTAL SHOULDER. on 05/18/2022 - Pain: Pain 8-10/10. Acetaminophen scheduled with tramadol, oxycodone and hydromorphone (IV) available as needed. Ketorolac 15 mg IV Q6h x4 doses. Prior to admission 600 mg BID pregabalin resumed. - Bowel regimen: Senna-Doc twice daily schedules with additional agents available as needed. Prophylaxis: - Surgical site infection: Ancef 2 g IV q8h x24 hrs - VTE: none-upper extremity - GI: pantoprazole 40 mg BID Home medications: - Held: prns, vitamins, creams, diclofenac gel, benadryl at bedtime, tizanidine, Cetirizine, aspirin - Changed: esomeprazole substituted with pantoprazole, furosemide 40 mg daily changed to BID - Patient own medications: None ASSESSMENT / PLAN Summary & Recommendations: - Consider resuming prior to admission aspirin due to history of stroke in 2020 -: Furosemide ordered as 40 mg BID which matches prescription and fill history, but after speaking to patient, she said that she will refuse the evening dose and only takes it once a day at home. -Continue excellent post operative cares. - Changes to medications anticipated at discharge: Adding pain and bowel regimen. - No pharmacotherapeutic barriers to discharge from the hospital are identified at this time. Jane Nguyen Pharm.D., R.Ph. [phone] Kaushik Cadena M.D. - 05/19/2022 7:34 AM CDT SUBJECTIVE Angie Mosquera was examined in her hospital room this morning and this afternoon. She had no acute events overnight. Pain control is a challenge, endorsing 10/10 pain and requiring adjustments to her pain regiment and IV pushes. Denies chest pain, shortness of breath, fever, chills, nausea, vomiting. Voiding independently. Tolerating p.o. well. AM labs notable for Hgb of 7.6 constituting anemia. We will monitor. BMP unremarkable. OBJECTIVE VITAL SIGNS Temperature: [36.3 ??C-36.9 ??C] 36.3 ??C Resp Rate: [12-16] 14 Blood Pressure: (87-127)/(55-88) 127/74 SpO2: [89 %-99 %] 99 % Flow Rate (L/min): [0 L/min] 0 L/min Pulse Rate: [58-74] 58 I/O last 3 completed shifts: In: 1620 [P.O.:620] Out: 1600 [Urine:1500; Blood:100] PHYSICAL EXAM General: Resting in bed. Answers questions appropriately. Musculoskeletal: Operative extremity with sling immobilizer in place. Surgical dressings clean, dry,and intact without strikethrough. Intact median, radial and ulnar motor function. Sensation intact in axillary, radial, median, and ulnar nerve distributions. Palpable radial pulse. Fingers warm and well-perfused. DIAGNOSTICS Recent Results (from the past 24 hour(s)) Basic Metabolic Panel Collection Time: 05/19/22 3:26 AM Result Value Potassium, S 4.2 Sodium, S 137 Chloride, S 105 Bicarbonate, S 24 Anion Gap 8 BUN (Blood Urea Nitrogen), S 13 Creatinine, S 0.70 eGFR-Non Black/ >90 eGFR-Black/ >90 Calcium, Total, S 9.1 Glucose, S 153 (H) CBC with Differential, Blood Collection Time: 05/19/22 3:26 AM Result Value Hemoglobin 7.6 (L) Hematocrit 25.5 (L) Erythrocytes 3.28 (L) MCV 77.7 (L) RBC Distrib Width 23.6 (H) Platelet Count 269 Leukocytes 7.9 Neutrophils 6.39 Lymphocytes 1.01 Monocytes 0.50 Eosinophils <0.03 Basophils <0.03 IMAGING No results found. ASSESSMENT / PLAN IMPRESSION/REPORT/PLAN #1 s/p revision left reverse total shoulder arthroplasty Ms. Mosquera is doing alright on POD #1. Pain control has been a challenge, endorsing 10/10 pain and requiring adjustments to her pain regiment and IV pushes. This is not surprising given her history ofchronic pain and multiple operations on this extremity. Additionally, AM labs notable for Hgb of 7.6 constituting anemia. We will monitor. BMP unremarkable. She did work this PT/OT this afternoon and did well. She will continue ot be NWB LUE for 6 weeks in a sling immobilizer at all times with no ROM or dangling. She can come out of this for showers in a shower sling but should have this on otherwise. Active Issues # Acute blood loss anemia - monitor CBC and transfuse as needed. Last Hgb 7.6. # postoperative pain control - requiring IV pain medications Activity: NWB operative extremity. No ROM or dangling. Sling immobilizer for 6 weeks. May use showersling but otherwise should remain in sling immobilizer. Labs: Hgb 7.6. BMP unremarkable. Pain: multimodal regimen including cold compress, acetaminophen and oxycodone prn VTE Prophylaxis: pharmacoprophylaxis not indicated, recommend early ambulation and SCD's Cultures: NGTD Antibiotics: 24-hour perioperative course of IV antibiotics Diet: Adult Diet Regular Discharge Diet for Adults Bowel Regimen: Sennakot S Imaging: postop X-rays obtained and reviewed which demonstrate a well positioned revision left reverse total shoulder arthroplasty Consults: PT/OT Anticipated Disposition: home 05/20 Miguelina Cadena M.D. PGY-1 Orthopaedic Surgery For any questions or concerns from 6 am until 6 pm, please page [facility] [[email or web address]] at [phone] For urgent matters from 6 pm until 6 am, please page [facility] at [facility] [phone] Paco Valentine - 05/18/2022 9:47 AM CDT Encounter: AM Admit Deanna Tradition: No moravian affiliation. Ms. Mosquera did not express any spiritual needs at this time. Plan: Will remain available for spiritual care as needed or requested. [phone] ([facility]). Rodrigo Preston, Pharm.D., R.Ph. - 05/18/2022 9:17 AM CDT Images from the original note were not included. Admission Medication History Note Adherence issues: Reports missing a few doses a month Medication list source: Patient and Care Everywhere or chart review Medication related information: patient stated that she takes 40-50 mg of oxycodone per day. Prior to Admission Medications Med List Status: Pharmacy Complete Set By: Rodrigo Preston, Pharm.D., R.Ph. at 05/18/2022 9:16 AM Taking? Last Dose Informant Start Date End Date LT acetaminophen (TYLENOL) 500 mg capsule 01/01/22 -- Take 2 capsules (1,000 mg total) by mouth every 6 (six) hours as needed for pain. Start the day of surgery. albuterol (PROVENTIL HFA,VENTOLIN HFA) 90 mcg/actuation inhaler Self -- -- Inhale 2 puffs every 6 (six) hours as needed for wheezing or shortness of breath. Arnuity Ellipta 100 mcg/actuation diskus inhaler 05/17/2022 01/28/22 -- Inhale 1 puff daily. aspirin 325 mg tablet 05/13/2022 02/27/22 -- Take 1 tablet (325 mg total) by mouth every evening. atorvastatin (LIPITOR) 80 mg tablet 05/17/2022 02/17/21 -- Take 1 tablet (80 mg total) by mouth at bedtime. benzonatate (TESSALON PERLES) 100 mg capsule Past Week 03/19/19 -- Take 100 mg by mouth 3 (three) times a day as needed for cough. buPROPion XL (WELLBUTRIN XL) 150 mg 24 hr tablet 05/17/2022 02/04/21 -- Take 150 mg by mouth every morning. gbebliwobi-pctbmneudtnsg-kpfb (ESGIC) 50-325-40 mg per tablet Past Week 02/27/21 -- Take 1 tablet by mouth every 6 (six) hours as needed for migraine. cetirizine (ZyrTEC) 10 mg tablet 05/17/2022 Self -- -- Take 10 mg by mouth 2 (two) times a day. cholecalciferol (VITAMIN D3) 125 mcg (5,000 Unit) tablet 05/17/2022 Self -- -- Take 125 mcg by mouth every morning. clindamycin (CLEOCIN T) 1 % external solution 05/17/2022 02/22/22 -- Apply 1 application topically 2 (two) times a day. Apply to face. cyanocobalamin, vitamin B-12, 2,500 mcg lozenge 05/17/2022 01/28/22 -- Take 1 tablet by mouth daily. diazePAM (VALIUM) 10 mg tablet 05/17/2022 Self 02/14/19 -- Take 10 mg by mouth 2 (two) times a day as needed. diclofenac sodium (VOLTAREN) 1 % gel Past Week 01/01/22 -- Apply 2-4 g topically 4 (four) times a day as needed. diphenhydrAMINE (BENADRYL) 25 mg tablet 05/17/2022 -- -- Take 75 mg by mouth at bedtime. esomeprazole (NexIUM) [address] capsule 05/17/2022 Self 11/19/17 -- Take 40 mg by mouth 2 (two) times a day before breakfast and dinner. FLUoxetine (PROzac) 40 mg capsule 05/17/2022 Self -- -- Take 80 mg by mouth every morning. furosemide (LASIX) 40 mg tablet Past Week Self 02/08/19 -- Take 40 mg by mouth daily. ipratropium-albuteroL (DUONEB) 0.5-2.5 mg/3 mL nebulizer solution Past Week 01/16/21 -- Inhale 3 mL by nebulization 4 (four) times a day as needed for shortness of breath or wheezing. lamoTRIgine (LaMICtal) 200 mg tablet 05/17/2022 02/08/19 -- Take 200 mg by mouth 2 (two) times a day. MAG-G 27 mg magnesium (500 mg) tablet 05/17/2022 02/16/19 -- Take 1 tablet by mouth at bedtime. meclizine (ANTIVERT) 25 mg tablet Past Week 01/19/21 -- Take 25 mg by mouth every 6 (six) hours as needed for dizziness. medical cannabis capsule 05/17/2022 Self -- -- Take 1-4 capsules by mouth 2 (two) times a day as needed (pain). THC component: 10 mg CBD component: 0 mg medical cannabis oil inhalation 05/18/2022 Self -- -- Inhale as needed (pain). Vape THC: 5 mg dose - per pt medical cannabis oil oral 05/17/2022 Self -- -- Take 1 each by mouth as needed (pain). 1 spray as needed. 5 mg THC multivit-min/iron/folic/miw526 (HAIR, SKIN AND NAILS ADVANCED ORAL) Past Week -- -- Take 1 tablet by mouth daily. ondansetron ODT (ZOFRAN-ODT) 8 mg disintegrating tablet 05/17/2022 Self 01/16/10 -- Take 1 tablet by mouth 3 (three) times a day as needed for nausea. oxyCODONE (ROXICODONE) 10 mg IR tablet 05/17/2022 02/24/22 -- Take 10 mg by mouth every 4 (four) hours as needed for pain. polyethylene glycol (MIRALAX) 17 gram/dose oral powder Past Month Self 04/11/17 -- Take 17 g by mouth as needed for constipation. pregabalin (LYRICA) 300 mg capsule 05/17/2022 09/18/20 -- Take 600 mg by mouth 2 (two) times a day. QUEtiapine (SEROquel) 50 mg tablet 05/17/2022 08/19/20 -- Take 50 mg by mouth at bedtime. rOPINIRole (REQUIP) 2 mg tablet 05/17/2022 01/28/22 -- Take 2 mg by mouth at bedtime. sennosides-docusate sodium (SENOKOT-S) 8.6-50 mg per tablet Past Month 02/26/22 -- Take 1 tablet by mouth 2 (two) times a day. tiZANidine (ZANAFLEX) 4 mg tablet 05/17/2022 Self 03/27/19 -- Take 4-8 mg by mouth every 8 (eight) hours as needed for muscle spasms. Muscle spasms valACYclovir (VALTREX) 500 mg tablet 05/17/2022 Self 02/22/18 -- Take 500 mg by mouth daily. zonisamide (ZONEGRAN) 100 mg capsule 05/17/2022 02/22/19 -- Take 300 mg by mouth 2 (two) times a day. documented in this encounter Consult Notes Jey Harper PBrittonT., D.P.T. - 05/19/2022 5:35 PM CDT Physical Therapy Inpatient Evaluation/Treatment By co-signing this note, the provider certifies the therapy being provided to this patient is reasonable and necessary for the diagnosis or treatment of this patient. SUBJECTIVE Patient's Name: Angie Mosquera Referring/Attending Provider: Cyrus Polk M.D. Medical Diagnosis: Shoulder Joint Disorder Left [M25.812] Reason for Referral: PT Evaluate and Treat PT evaluate and treat orthopedic rehab; shoulder Onset Date: 05/18/22 Payor: MEDICARE / Plan: MEDICARE A AND B / Product Type: Medicare / PERTINENT MEDICAL / SURGICAL HISTORY: Patient Active Problem List Diagnosis ??? Rhinosinusitis Chronic ??? Cerebral 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 (HCC) ??? Anxiety Generalized Disorder ??? Chronic Pain Syndrome ??? Fibromyalgia ??? Gastric Bypass Status Post ??? Esophageal Motility Disorder ??? Sinusitis Recurrent ??? Cervical Spine Disorder ??? Fusion Cervical Spine Status Post ??? Nicotine Dependence Cigarettes ??? Thrombosis Arterial (HCC) ??? Transient Ischemic Attack ??? Aneurysm Cerebral Unruptured (HCC) ??? Patent Foramen Ovale (HCC) ??? Mucocele Nasal Sinus ??? Stroke Cerebrovascular Accident Personal History ??? 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 ??? Dissection Vertebral Artery (HCC) ??? Bipolar II Disorder (HCC) ??? Opioid Moderate Or Severe Use Disorder (Dependence) Uncomplicated (HCC) ??? Nicotine Dependence Unspecified ??? Other Usp Current Drug Therapy ??? Direct Infection Of Left Shoulder In Infectious And Parasitic Diseases Classified Elsewhere (HCC) ??? Pain Shoulder Left ??? Anemia ??? Primary Osteoarthritis Shoulder Left Past Surgical History: Procedure Laterality Date ??? ABDOMINOPLASTY ??? ARTHROPLASTY - RESECTION SHOULDER Left 12/30/2021 Procedure: ARTHROPLASTY RESECTION SHOULDER.; Surgeon: Cyrus Polk M.D.; Location: [facility] ??? ARTHROPLASTY REPLACEMENT TOTAL SHOULDER Left 02/26/2022 Procedure: ARTHROPLASTY REPLACEMENT TOTAL SHOULDER.; Surgeon: Cyrus Polk M.D.; Location: [facility] ??? ARTHROPLASTY REPLACEMENT TOTAL SHOULDER Left 05/18/2022 Procedure: ARTHROPLASTY REPLACEMENT TOTAL SHOULDER.; Surgeon: Cyrus Polk M.D.; Location: [facility] ??? BACK SURGERY 1998 lumbar fusion ??? BARIATRIC SURGERY with revision in 2006 ??? CARPAL TUNNEL RELEASE ??? CERVICAL FUSION C4 - T1 discectomy, fusion, hardware removal ??? CHOLECYSTECTOMY ??? EXTRADURAL COMPUTER NAVIGATION N/A 12/07/2019 Procedure: EXTRADURAL COMPUTER NAVIGATION.; Surgeon: Darlin Olmedo M.D.; Location: [facility] ??? FOOT SURGERY Left metal plate ??? HYSTERECTOMY ??? JOINT REPLACEMENT Bilateral TKAs ??? KNEE ARTHROPLASTY ??? MASTOPEXY ??? OTHER CONVERTED SHX (SEE COMMENT) N/A 05/21/2008 >Esophagogastroduodenoscopy with biopsy and dilation. ??? SHOULDER SURGERY Left TSA, reverse ??? SINUSOTOMY ENDOSCOPY FRONTAL Bilateral 12/07/2019 Procedure: SINUSOTOMY ENDOSCOPY FRONTAL.; Surgeon: Darlin Olmedo M.D.; Location: [facility] ??? SPINAL CORD STIMULATOR IMPLANT ??? TUBAL LIGATION reversed 1993 History of Present Illness: Status post left reverse total shoulder arthroplasty revision- prone to dislocation Prior Function/Occupational Profile Lives With: Alone Receives Help From: bathhouse attendant, Family, Friend(s) ADL Assistance: Required assistance ADL Assistance Comments: Gets help from [employer] for her bath/shower 3x/week, and for her meals IADL/Homemaking Assistance: Required assistance IADL/Homemaking Assistance Comments: Gets help for housecleaning Driving: Does not drive Driving Comments: takes her cane and medical alert with her. Occupational Role: On disability Occupational Role Comments: Previously worked at a [employer] Prior Mobility/Functional Transfers Level of [place]: Needs assistance Previous Transfer/Mobility Assistance Comments: Patient reports that she was indpendent ambulating at home and in the community. Per PT/OT notes she has fallen - she states she hasn't. She states she sometimes uses the 4 wheeled walker, takes the cane with her outside. Gait Devices/Wheelchair Used: Cane, Four wheeled walker Gait Devices/Wheelchair Used Comments: Used a four-wheeled walker in the past so she could carry things in her four-wheeled walker basket; has been using a single point cane with difficulty due to it slipping away from her Home Equipment Gait Devices Owned: Four-wheeled walker, Cane Other DME Equipment : Other (Comment) (patient plans to sleep in a recliner chair upon discharge home) Home Living Type of Home: Apartment Home Layout: One level Home Access: Level entry Bathroom Shower/Tub: Tub/shower unit Bathroom Toilet: Standard Family/Caregiver Present: No Patient/Caregiver Goals: none stated. patient was very excited about the prospect of getting an electric scooter. Patient Comments: Patient supine in bed upon therapist arrival; patient agreeable to therapy. Precautions Weight Bearing Status: Nonweightbearing left upper extremity Other Precautions: No shoulder elbow or wrist range of motion, no dangling. patient to be in immobilizer at all times unless bathing or changing clothes in order to reduce risk of dislocation Fall Risk (65 and older) Fall in the last 12 months: Yes Did you have an injury with the fall?: No Are you fearful of falling?: No Fall Risk Comments: Patient reports tripping as the primary reason for her falls in the last year, reports only bruising OBJECTIVE Angie's NOHARM modalities were used during their therapy session. Vitals monitored throughout session; within normal ranges. Patient denies dizziness, lightheadedness, shortness of breath, chest pain, and diaphoresis with mobility this session. Cognition Orientation: Oriented X4 General ROM / Strength Screening ROM - Lower Extremity Screen: Addressed, no concerns noted Strength - Lower Extremity Screen: Addressed, no concerns noted Bed Mobility - Supine to Sit Level of Assistance: Modified Independent Device: Head of bed elevated Bed Mobility - Sit to Supine Level of Assistance: Modified Independent Device: Head of bed elevated Sit to Stand Transfers # of Assistants: 1 Transfer Surface: Bed Transfer Equipment: Gait belt Level of Assistance: Supervision/set-up Assessment/Delivery: Assessed Comments: patient is able to complete sit to and from stand transfers without the need for physical assistance Stand to Sit Transfers # of Assistants: 1 Transfer Surface: Bed Transfer Equipment: Gait belt Level of Assistance: Supervision/set-up Assessment/Delivery: Assessed Gait Assessment/Training Distance (m): 40 m Surface: Even, Smooth/hard Device: Gait belt, Quad cane # of Assistants: 1 Level of Assistance: Supervision/Set-up Assessment of Gait: Patient ambulates with increased lateral trunk sway, and no left upper extremityswing due to sling. patient is able to appropriately utilize quad cane for balance. patient reports she feels unsteady, and that the quad cane is wobly, however she does not experience any losses of balance throughout mobility, and is even able to walk short distances in the room while neglecting the quad cane entirely. Physical therapist instructed patient to utilize a gait aid at all times, especially given the fact that the patient states multiple times she is concerned about her own balance. It appears the patient's safety awareness is quite low. Patient's nurse was contacted and patient's status was discussed Patient was left in bed at end of session with call light in reach, all needs met and questions answered. Contact monitoring: PPE used during therapy: Therapist was wearing the following PPE throughout entire session: surgicalmask, eye protection and gloves Patient was wearing a mask during therapy session: yes Outcome Measures [facility] Inpatient Short Form: -[facility] Basic Mobility (V.2) How much help from another person do you currently need???If the patient hasn't done an activity recently, how much help from another person do you think he/she would need if he/she tried? 1. Turning from your back to your side while in a flat bed without using bedrails?: A Little 2. Moving from lying on your back to sitting on the side of a flat bed without using bedrails?: A Little 3. Moving to and from a bed to a chair (including a wheelchair)?: A Little 4. Standing up from a chair using your arms (e.g., wheelchair, or bedside chair)?: A Little 5. To walk in hospital room?: A Little 6. Climbing 3-5 steps with a railing?: A Little -[facility] Basic Mobility (V.2) Raw Score: 18 -[facility] Basic Mobility (V.2) Standardized Score: 41.05 Interpretation: Clinicians answer the -[facility] Inpatient Short Form based on observed patient activityand/or clinical judgement (ie. patient can be scored without physically performing each activity) Based on scoring guidelines using the raw score value: Those going to home had an average score at or above 18 Those going to facility had an average score at or below 17 Assessment Discharge Therapy Needs - PT: No further skilled therapy Skilled therapy can include physical therapy provided by home health, outpatient clinic, or a post-acute facility. The location of these services is determined by the patient's care team in partnershipwith patient/family. Equipment Recommended - PT: 4-point cane patient likely owns. it was unclear if the patient still has the quad cane from previous surgery. Barriers to Discharge Home: Fall risk, Safety concerns Clinical Impression of today's session: Currently, patient presents with impairments including decreased strength and range of motion left upper extremity resulting in the following functional deficits: Difficulty completing bed mobility, sit to and from stand transfers, ambulation, stair navigation. During today's session patient demonstrated the ability to complete all functional mobility requiredfor safe discharge home. Donning and doffing of sling immobilizer was not performed during today's session, as patient will be discharging tomorrow. Plan for next session is to review donning and doffing of sling immobilizer in the context of bathing and dressing. Physical therapy treatment is medically necessary to restore and optimize function, maximize safety, facilitate discharge to home, and to teach and educate the patient and/or caregivers. Rehab potential: Ms. Mosquera has Good potential to achieve established physical therapy goals withinthe time frame outlined below. Progress: Progressing toward goals Tiered PT Evaluation Codes: Comorbid Conditions: Other (Comment) (See active problem list for more details) Personal Factors: Safety awareness, History of falls Examination elements: 3 Clinical Presentation: Stable Clinical Decision Making: Low complexity clinical decision making Functional Goals: PT Inpatient Goals PT Goal #1: Patient will be able to perform bed mobility per home setup with supervision to improve functional independence. PT Goal #1 Status: Progressing PT Goal #2: Patient and helper will be able to teach back with demonstration the seated edge of bed technique with the use of pillows to support the arm for shirt, shower sling and daily sling donning and doffing. PT Goal #2 Status: Ongoing PT Goal #3: Patient will ambulate 35m with least restrictive gait aid with supervision assist for improved independence with mobility and to return to prior level of function. PT Goal #3 Status: Achieved Plan Patient agrees with the plan of care and goals. Treatment Plan: Plan: Plan of care initiated PT Amount: Other (comment) (1-2 as appropriate) PT Frequency: One-time visit PT Inpatient Duration : Until goals are met or hospital discharge Requires Inpatient Follow-Up: Yes PT - Next Inpatient Appointment: 05/20/22 PT Plan Comments: review donning and doffing of sling immobilizer for dressing and bathing. mobilityassessment is already complete Treatment interventions may include: Treatment/Interventions: Therapeutic exercise, Therapeutic functional activity, Self-care/home management Billing: Time Spent with Patient Evaluations PT Eval - Low Complexity: 8 min Therapeutic Interventions Therapeutic Activity (min): 25 min Time Tracking Total Timed Units (min): 25 min Total Treatment Time (min): 33 min Jey Harper P.T., D.P.T. Roland Hall R.N. - 05/19/2022 11:40 AM CDTAssociated Order(s): IP CONSULT TO CARE MANAGEMENT; IP CONSULT TO CARE MANAGEMENT Discharge Planning Assessment SUBJECTIVE Assessment Information Referral Source: Nurse Referral Reason: Discharge Planning Primary Language: Northern Irish Personnel Clerk Services Used: No Person(s) present during interview: Person(s) Present During Interview: patient History of Present Illness #1 Primary Osteoarthritis Shoulder Left Social History Support System: children, trimming caser/protective services social worker, friends/neighbors and home care staff Patient's Home Environment: apartment Finance/Insurance Primary insurance: MEDICARE A AND B Secondary insurance: MEDICA Does the patient have any financial concerns? N/A Advance Directives Legal Decision Maker: Self Advance Directives: N/A OBJECTIVE Baseline Functional Status Baseline Activities of Daily Living Mobility: Assistance of one Dressing: Needs assistance Feeding: Independent Bathing: Needs assistance Grooming: Needs assistance Toileting: Independent Behavior: Appropriate, Pleasant, Cooperative, Calm, Oriented Communication: Talks, Understands speaking, Understands Northern Irish Shopping: Needs assistance Transportation: Support from family Medication Management: Needs assistance Housekeeping: Needs assistance Meal Prep: Needs assistance Managing Finances: Independent Assistive Devices: Grab bars - wall, Eyeglasses Services/Resources: Other (comment) Agency Name: [facility] Services Provided: LOBSTER CATCHER services 3x/week, nurse visits every other week Baseline Services/Resources Primary care clinic and provider: [place], [facility] Phone: Fax: Anticipated Needs Functional Status: Transfer to/from bed, chair, etc., Bathing, Dressing, Grooming/hygeine, Housekeeping, Shopping, Meal preparation, Mobility, Medication set-up/administration, Transportation use (drive car, use taxi/bus) Services/Resources: Other (comment) Agency Name: [facility] Services Provided: LOBSTER CATCHER services 3x/week, nurse visits every other week Transportation Needs: Support from family Does the patient need discharge transport arranged?: No Ride and Caregiver Arranged: Yes Anticipated Discharge Destination[place] [facility] [place]AN Assessment: The customer service officer met with Angie Mosquera to discuss her current hospitalization and home goingneeds. The patient was unaccompanied. The patient was a reliable historian. The role of customer service officer was reviewed. The patient reviewed her prior level of care and support system. The patient receives support from her son, friends and home care staff. Patient reported her son lives in the same apartment as her. She also stated getting LOBSTER CATCHER services 3x/week and a nurse visits her every other week. The patient described her living environment as a two bedroom apartment. Housekeeping, grocery shopping, meal prep, and other household responsibilities have previously been completed by patient, patient's son and patient's caregiver(s). customer service officer discussed the patient's potential needs at [facility] based on their home setting, previous needs and responsibilities, homebound status, and relevantassessments with the patient. The patient will be safe and supported to return home with [facility] or previous services noted above when medically ready. Support will be provided by son, friends and home care staff. The patient demonstrated understanding when discussing her home going plans and anticipated needs. At this time, the care team anticipates the patient requires the following service(s) to be reconnected: home healthcare. The patient identified the following as their current vendor(s): [facility]. During this visit patient verbalized she is hoping to increase her LOBSTER CATCHER hours and also inq uired about getting a scooter to assist in her mobility. Patient went on to share she is unstable attimes due to her stroke history. She thought perhaps her neurology doctor would be able to help her get a scooter. RADHA DONAHUE recommended she follow up with the county in regards to wanting more LOBSTER CATCHER hours. She was also recommended to follow up with her primary care provider to provide durable medical equipment justification for a scooter, as she is currently hospitalized for orthopedic surgery. Patient verbalized understanding. Patient informed RN CM would be reconnecting her LOBSTER CATCHER services and nurse visits with [facility]. Patient agreeable to RN CM completing this and even provided RN CM the name and contact of her LOBSTER CATCHER and RN. After reviewing the patient's chart and meeting with the patient, the customer service officer deemed the LACE+/readmission questions were not necessary. The patient reports understanding that she will dismiss from the hospital when medically stable. Pending hospital course and medical readiness, no barriers to dismissal have been identified at this time. Plan: Patient to discharge with home health care. [facility] Contact: RADHA Palomino ATTN: Georgette NURSING: - Complete documentation in the Discharge Navigator including Nursing Report Info and Facility/NextLevel of Care Info - Call report and arrange for the patient???s first visit. - Please fax a copy of AVS to above fax number per RN request. - Send required packet of dismissal information with patient, including After Visit Summary and advance directive. PRIMARY SERVICE: - Please provide a non-[facility] home health order for resumption of previous services by home health care on the After Visit Summary. If additional services are needed, please provide order. - Communicate with the patient???s local primary care provider by telephone for writing of home care orders. This needs to be done to help prevent discharge delays. A copy of the After Visit Summary needs to be sent there as well. The patient agrees with the following plan. 1. Patient's anticipated discharge disposition is: Home with Home Healthcare Reconnected. 2. Transportation upon dismissal will be provided by family. 3. customer service officer recommended reaching out to family, friends, and neighbors for assistance. 4. customer service officer provided information regarding the dismissal process. 5. customer service officer placed or requested the following hospital-based consult orders and/or referrals:None. 6. customer service officer will continue to assess for homegoing needs with the interdisciplinary team. 7. customer service officer encouraged the patient to reach out with any questions/concerns. Signed by: Roland Hall R.N. 05/19/2022 documented in this encounter Nursing Notes Isaura Vu R.N. - 05/20/2022 2:55 PM CDT Problem: SAFETY ADULT Goal: Maintain a safe environment Outcome: Adequate for Discharge Problem: SAFETY ADULT - RISK FOR FALL AND OR FALL INJURY Goal: Patient remains free from fall/fall injury Outcome: Adequate for Discharge Problem: PAIN - ADULT Goal: PT VERBALIZES/DEMONSTRATES ADEQUATE COMFORT LEVEL OR BASELINE Outcome: Adequate for Discharge Problem: KNOWLEDGE DEFICIT Goal: Patient/family/caregiver demonstrates understanding of disease process, treatment plan, medications, and discharge instructions Outcome: Adequate for Discharge Problem: INFECTION - ADULT Goal: Absence of infection during hospitalization Outcome: Adequate for Discharge Problem: SKIN/TISSUE INTEGRITY Goal: Skin/Tissue integrity maintained or improved Outcome: Adequate for Discharge Goal: Oral and Nasal mucous membranes remain intact Outcome: Adequate for Discharge Problem: DISCHARGE PLANNING Goal: Patient discharge needs identified Outcome: Adequate for Discharge Shift Goals: Clinical Goals for the Shift: Patient will keep pain at tolerable level. Patient will remain free from falls. Patient will discharge to home with [facility] reconnect. Identify possible barriers to meeting goals/advancing plan of care: none End of Shift Summary: Patient stayed on schedule with prn pain meds (Tramadol and oxycodone) throughout the shift. Encouraged using ice packs to help with pain and swelling. Patient's primapore dressing was changed to Aquacell AG and is clean, dry and intact. 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 Patient expects RN from [facility] to visit on Tuesday, May 24. Patient's friend will transport home. Medications including: oxycodone and tramadol were picked up [facility]. documented in this encounter OR Notes Op Note - Cyrus Polk M.D. - 05/18/2022 5:54 PM CDT STAFF: Cyrus Polk M.D. RESIDENT: Jenna Zaldivar M.D. PRE-OPERATIVE DIAGNOSIS Left dislocated reverse arthroplasty. POST-OPERATIVE DIAGNOSIS Left dislocated reverse arthroplasty. A contract administrative assistant actively participated and was necessary for one or more of the following: Opening,exposure and visualization during the case, maintaining hemostasis, wound closure resulting in its safe and expeditious completion. PROCEDURES: Left shoulder revision of glenosphere, revision humeral stem and tray. SPECIMENS: Three cultures and 1 pathology for specimens. FINDINGS As expected. COMPLICATIONS None. OPERATIVE NOTE NARRATIVE Patient was brought to the operating room where she underwent satisfactory anesthesia, carefully padded and positioned in beach chair position. The affected upper extremity sterilely prepped and drapedin the usual manner. Anterior skin incision was made. Skin incised as well as fat. Deltopectoral inte rval was identified. The patient had severe scarring present. The humerus was dislocated. The tray was undermined and removed. The stem was cut. The humerus was cut slightly lower in an increased amount of retroversion. The broach was placed. Glenoid inspected. The posterior capsular release was performed with great care to protect the axillary nerve, which was felt to be intact at the beginning and the end of the procedure. A 40 glenosphere was placed, dialed inferiorly. The base plate was solid. The trial tray and stem could be seen that it could be reduced 1 time. The real stem was impacted in place with an excellent tight fit, again with the trial tray with a retentive bearing surface. It could be seen that it could be reduced 1 time. The shoulder was reduced 1 time. There was absolute stability of the shoulder. There was no subluxation with excellent motion. Shoulder thoroughly irrigated multiple times during the course of the procedure. There was no evidence of infection. There was no rota tor cuff to repair. The deltopectoral interval was closed with multiple #2 stitches, the subcutaneous tissue with 2-0 Monocryl, running Monocryl placed in the skin. Dermabond, Steri-Strips, sterile dressing applied. Patient was placed in a sling and brought to recovery in stable condition. TPR: 4, Placement new glenosphere, placement new humeral stem and tray, [id number] Cyrus Polk M.D. CT CT Job ID: [id number] documented in this encounter Miscellaneous Notes Hospital Course - Kaushik Cadena M.D. - 05/19/2022 12:18 PM CDT Surgery Information This Encounter Past Procedures (05/19/2021 to Today) Date Procedures Providers Location 05/18/2022 ARTHROPLASTY REPLACEMENT TOTAL SHOULDER. Cyrus Polk M.D.Wasserburger, Jory N, M.D.Markos, James R, M.D. T [facility] Angie Mosquera was taken to the operative room by Dr. Polk for the procedure listed above. The intraoperative as well as the immediate postoperative course were uncomplicated. For further details of the surgery please see the operative note. The patient was transferred from the PACU to the general care floor for continued observation and monitoring. She progressed in the usual post-operative fashion without complications. Physical exam was notablefor intact sensation and motor function of the operative extremity and easily palpable radial pulse.Incision clean, dry, and intact. She will be NWB in a sling for 6 weeks with no range of motion of the shoulder or elbow during this time period and no dangling. The patient was treated with perioperative IV antibiotics. She was given liquids by mouth and eventually advanced as tolerated towards a more general diet. Her pain was well controlled with oral pain medications. Physical therapy / Occupational therapy was consulted for assistance with mobilization and gait training. She was mobilizing without difficulty and was compliant with any activity restrictions. Her incision remained intact with noconcerns. Her bowel and bladder function were acceptable. She then met criteria for discharge and was later dismissed from the hospital. For any further details please see the most recent orthopedic surgery progress note and any other co-managing teams dated 05/19/2022. documented in this encounter Plan of Treatment Not on filedocumented as of this encounter Procedures Procedure Name Priority Date/Time Associated Comments Diagnosis CBC WITH Routine 05/20/2022 3:43 Results for this DIFFERENTIAL, B AM CDT procedure ar e in the results section. CBC WITH Routine 05/19/2022 3:26 Results for this DIFFERENTIAL, B AM CDT procedure ar e in the results section. BASIC METABOLIC Routine 05/19/2022 3:26 Results f or this PANEL, S/P AM CDT procedure are i n the results section. REMOTE OXIMETRY Routine 05/19/2022 12:29 MONITORING CONT. AM CDT REMOTE OXIMETRY Routine 05/19/2022 12:29 MONITORING CONT. AM CDT REMOTE OXIMETRY Routine 05/19/2022 12:29 MONITORING CONT. AM CDT ADULT OXYGEN Routine 05/18/2022 8:01 THERAPY PM CDT ADULT OXYGEN Routine 05/18/2022 4:09 THERAPY PM CDT ADULT OXYGEN Routine 05/18/2022 4:09 THERAPY PM CDT ADULT OXYGEN Routine 05/18/2022 4:09 THERAPY PM CDT ADULT OXYGEN Routine 05/18/2022 2:14 THERAPY PM CDT DX SHOULDER LEFT 1 RAD - Routine 05/18/2022 2:11 Resul ts for this VIEW (most inpatients PM CDT procedure a re in and all the results outpatients) section. SURGICAL PATHOLOGY, Routine 05/18/2022 1:04 Shoulder Joint Res ults for this [facility] PM CDT Disorder Left procedure are in the results section. BACTERIA CULT, Routine 05/18/2022 1:03 Results fo r this AEROBE/ANAEROBE+CARRIE PM CDT procedur e are in C the results section. BACTERIA CULT, Routine 05/18/2022 1:03 Results fo r this AEROBE/ANAEROBE+CARRIE PM CDT procedur e are in C the results section. BACTERIA CULT, Routine 05/18/2022 1:03 Results fo r this AEROBE/ANAEROBE+CARRIE PM CDT procedur e are in C the results section. ARTHROPLASTY 05/18/2022 11:55 Shoulder Joint REPLACEMENT TOTAL AM CDT Disorder Left SHOULDER Case Notes Patient has multiple facial piercings that she is unable to remove ADULT OXYGEN THERAPY Routine 05/18/2022 10:57 AM CDT documented in this encounter Results (ABNORMAL) CBC with Differential, Blood (05/20/2022 3:43 AM CDT) [facility] Method Time Signature Hemoglobin 8.4 (L) 11.6 - 05/20/2022 DTL 15.0 g/dL 4:27 AM CDT Hematocrit 27.1 (L) 35.5 - 05/20/2022 DTL 44.9 % 4:27 AM CDT Erythrocytes 3.50 (L) 3.92 - 05/20/2022 DTL 5.13 4:27 AM CDT x10(12)/L MCV 77.4 (L) 78.2 - 05/20/2022 DTL 97.9 fL 4:27 AM CDT RBC Distrib An accurate 12.2 - 05/20/2022 DTL Width RDW can not 16.1 % 5:25 AM CDT be determined. Platelet Count 256 157 - 371 05/20/2022 DTL x10(9)/L 4:27 AM CDT Leukocytes 5.8 3.4 - 9.6 05/20/2022 DTL x10(9)/L 4:27 AM CDT Neutrophils 4.07 1.56 - 05/20/2022 DTL 6.45 5:25 AM CDT x10(9)/L Lymphocytes 1.26 0.95 - 05/20/2022 DTL 3.07 5:25 AM CDT x10(9)/L Monocytes 0.39 0.26 - 05/20/2022 DTL 0.81 5:25 AM CDT x10(9)/L Eosinophils 0.11 0.03 - 05/20/2022 DTL 0.48 5:25 AM CDT x10(9)/L Basophils <0.03 0.01 - 05/20/2022 DTL 0.08 5:25 AM CDT x10(9)/L Specimen Anatomical Collection Method Collection Time Receive d Time (Source) Location / / Volume Laterality Blood (Blood, 05/20/2022 3:43 AM 05/20/20 4:16 Venous) CDT AM CDT Kaushik Cadena M.D. LAB BLOOD ADD-ON Performing Organization Address City/State/ZIP Code Phon e Number [facility] - [address] [place], [place] [address] [facility] [place] [address] [facility] [address] [facility] (ABNORMAL) CBC with Differential, Blood (05/19/2022 3:26 AM CDT) [facility] Method Time Signature Hemoglobin 7.6 (L) 11.6 - 05/19/2022 DTL 15.0 g/dL 4:17 AM CDT Hematocrit 25.5 (L) 35.5 - 05/19/2022 DTL 44.9 % 4:17 AM CDT Erythrocytes 3.28 (L) 3.92 - 05/19/2022 DTL 5.13 4:17 AM CDT x10(12)/L MCV 77.7 (L) 78.2 - 05/19/2022 DTL 97.9 fL 4:17 AM CDT RBC Distrib Width 23.6 (H) 12.2 - 05/19/2022 DTL 16.1 % 4:17 AM CDT Platelet Count 269 157 - 371 05/19/2022 DTL x10(9)/L 4:17 AM CDT Leukocytes 7.9 3.4 - 9.6 05/19/2022 DTL x10(9)/L 4:17 AM CDT Neutrophils 6.39 1.56 - 05/19/2022 DTL 6.45 4:17 AM CDT x10(9)/L Lymphocytes 1.01 0.95 - 05/19/2022 DTL 3.07 4:17 AM CDT x10(9)/L Monocytes 0.50 0.26 - 05/19/2022 DTL 0.81 4:17 AM CDT x10(9)/L Eosinophils <0.03 0.03 - 05/19/2022 DTL 0.48 4:17 AM CDT x10(9)/L Basophils <0.03 0.01 - 05/19/2022 DTL 0.08 4:17 AM CDT x10(9)/L Specimen Anatomical Collection Method Collection Time Receive d Time (Source) Location / / Volume Laterality Blood (Blood, 05/19/2022 3:26 AM 05/19/20 4:07 Venous) CDT AM CDT Kaushik Cadena M.D. LAB BLOOD ADD-ON Performing Organization Address City/State/ZIP Code Phon e Number [facility] - [address] [place], [place] [address] [facility] [place] [address] [facility] [address] [facility] (ABNORMAL) Basic Metabolic Panel (05/19/2022 3:26 AM CDT) P athologist Signature Potassium, S 4.2 3.6 - 5.2 05/19/2022 DTL mmol/L 4:38 AM CDT Sodium, S 137 135 - 145 05/19/2022 DTL mmol/L 4:38 AM CDT Chloride, S 105 98 - 107 05/19/2022 DTL mmol/L 4:38 AM CDT Bicarbonate, S 24 22 - 29 05/19/2022 DTL mmol/L 4:38 AM CDT Anion Gap 8 7 - 15 05/19/2022 DTL 4:38 AM CDT BUN (Blood Urea 13 6 - 21 05/19/2022 DTL Nitrogen), S mg/dL 4:38 AM CDT Creatinine, S 0.70 0.59 - 1.04 05/19/2022 DTL mg/dL 4:38 AM CDT eGFR-Non >90 >=60 05/19/2022 DTL Black/ mL/min/BSA 4:38 AM CDT Turkmen Comment: ----ADDITIONAL INFORMATION---- Estimated GFR calculated using the 2009 CKD_EPI creatinine equation. eGFR-Black/ >90 >=60 mL/min/BSA 2021 4:38 AM CDT DTL Comment: ----ADDITIONAL INFORMATION---- Estimated GFR calculated using the 2009 CKD_EPI creatinine equation. Calcium, Total, S 9.1 8.6 - 10.0 mg/dL 05/19/2022 4:38 AM CDT DTL Glucose, S 153 (H) 70 - 140 mg/dL 05/19/2022 4:38 AM CDT D TL Specimen Anatomical Collection Method Collection Time Receive d Time (Source) Location / / Volume Laterality Blood (Blood, 05/19/2022 3:26 AM 05/19/20 4:22 Venous) CDT AM CDT Kaushik Cadena M.D. LAB BLOOD ADD-ON Performing Organization Address City/State/ZIP Code Phon e Number [facility] - [address] [place], [place] [address] [facility] [place] [address] [facility] [address] DX Shoulder Left 1 View (05/18/2022 2:11 PM CDT) Anatomical Region Laterality Modality Upper Extremity, Shoulder, Musculoskeletal RST LOS, Left Computed Radiography Musculoskeletal ARZ LOS, Muskuloskeletal FLA LOS Specimen (Source) Anatomical Collection Method Collection Time Re ceived Time Location / / Volume Laterality 05/18/2022 2:33 PM CDT Impressions 05/18/2022 3:24 PM CDT Postoperative imaging of the left shoulder reverse TSA. Components are in alignment. Negative for postoperative purposes. Narrative 05/18/2022 3:24 PM CDT EXAM: ??DX SHOULDER LEFT 1 VIEW Procedure Note Deep Richardson M.D. - 05/18/2022For matting of this note might be different from the original. EXAM: DX SHOULDER LEFT 1 VIEW IMPRESSION: Postoperative imaging of the left should er reverse TSA. Components are in alignment. Negative for postoperative purposes. Jenna Zaldivar M.D. IMG DIAGNOSTIC IMAGING [facility] Surgical Pathology, Frozen Lab (05/18/2022 1:04 PM CDT) Component Value Ref Test Analysis Performed At [facility] Method Time Signature 05/20/2022 [facility] 11:46 AM CDT Report Katelynn Dsouza M.D. 05/20/2022 [facility] electronically 11:46 AM signed by CDT I verify that I have examined all relevant slides/materials for the specimen(s) and rendered or confirmed the diagnosis. Frozen A. ??Synovium, left shoulder, excision: ??Inflamed 05/20/2022 [facility] Intraoperative granulation 11:46 AM Report tissue. ??The synovium is negative for acute inflammation. CDT Signed by Katelynn Dsouza M.D. 05/20/2022 11:46 AM Gross Description A. ??Received fresh labeled left shoulder is a 1.8 x 1.4 x 05/20/2022 M[facility] 0.7 cm aggregate of pink-campbell fibrous tissue. ??All submitted 11:46 AM for frozen and permanent sections. ??Grossed by Nikki Ramirez CDT Distad. Block Summary A Left shoulder 05/20/2022 [facility] A1 Left shoulder -frozen 11:46 AM CDT Interpretation FINAL DIAGNOSIS 05/20/2022 [facility] A. ??Synovium, left shoulder, excision: ??Inflamed 11:46 AM granulation CDT tissue. ??The synovium is negative for acute inflammation. Specimen (Source) Anatomical Collection Method Collection Time Re ceived Time Location / / Volume Laterality Tissue (Shoulder, 05/18/2022 1:04 PM Left) CDT Narrative This result has an attachment that is no t available. Cyrus Polk M.D. LAB SURG PATH ORDERABLES Performing Organization Address [facility] Phon e Number [facility] - [address] [place], [place] [address] [facility] [place] [address] [facility] [address] [facility] Bacteria Cult, Aerobe / Anaerobe+Susc (05/18/2022 1:03 PM CDT) [facility] [employer] Method Time Signature Bacteria Cult, No growth 06/01/2022 DTL Aerobe/Anaerob after 14 6:02 PM CDT e+Susc days of incubation. Specimen Anatomical Collection Method Collection Time Receive d Time (Source) Location / / Volume Laterality Shoulder, Left 05/18/2022 1:03 PM 022 5:21 CDT PM CDT Comment: Specimen Source Site: Tissue #1 Narrative [facility] - 06/01/2022 6:02 PM CDT Bacterial Culture: Placed in Bactec aero bic and Bactec anaerobic bottles Cyrus Polk M.D. LAB MICROBIOLOGY - GENERAL O RDERABLES Performing Organization Address [facility] Phon e Number [facility] - [address] [place], [place] [address] [facility] [place] [address] [facility] [address] [facility] Bacteria Cult, Aerobe / Anaerobe+Susc (05/18/2022 1:03 PM CDT) [facility] [employer] Method Time Signature Bacteria Cult, No growth 06/01/2022 DTL Aerobe/Anaerob after 14 6:02 PM CDT e+Susc days of incubation. Specimen Anatomical Collection Method Collection Time Receive d Time (Source) Location / / Volume Laterality Shoulder, Left 05/18/2022 1:03 PM 022 5:12 CDT PM CDT Comment: Specimen Source Site: Tissue #3 Narrative [facility] - 06/01/2022 6:02 PM CDT Bacterial Culture: Placed in Bactec aero bic and Bactec anaerobic bottles Cyrus Polk M.D. LAB MICROBIOLOGY - GENERAL O MARY Performing Organization Address [facility] Phon e Number [facility] - [address] Bacteria Cult, Aerobe / Anaerobe+Susc (05/18/2022 1:03 PM CDT) [facility] Method Time Signature Bacteria Cult, No growth 06/01/2022 [facility] Aerobe/Anaerob after 14 6:02 PM CDT e+Susc days of incubation. Specimen Anatomical Collection Method Collection Time Receive d Time (Source) Location / / Volume Laterality Shoulder, Left 05/18/2022 1:03 PM 022 5:07 CDT PM CDT Comment: Specimen Source Site: Tissue #[address] [facility] - [facility] - 06/01/2022 6:02 PM CDT Bacterial Culture: Placed in Bactec aero bic and Bactec anaerobic bottles Cyrus Polk M.D. LAB MICROBIOLOGY - GENERAL O MARY Performing Organization Address [facility] Phon e Number 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) documented in this encounter Administered Medications Inactive Administered Medications - up to 3 most recent administrations Medication Order MAR Action Action Date Dose Rate Site acetaminophen tablet 1,000 mg Given 05/20/2022 12:06 PM CDT 1,00 0 mg (TYLENOL) 1,000 mg, oral, Every 6 hours, First dose on Tue05/18/22 at 1815 Given 05/20/2022 5:52 AM CDT 1,000 mg Given 05/20/2022 1:25 AM CDT 1,000 mg acetaminophen tablet 1,000 mg (TYLENOL) Given 05/18/2022 11:12 AM CDT 1,000 mg 1,000 mg, oral, Once, On Tue05/18/22 at 1100, For 1 dose, Pre-Op albuterol 90 mcg/actuation inhaler 2 puf f Given 05/18/2022 11:29 AM CDT 2 puffs 2 puff, inhalation, Once, On Tue05/18/22 at 1115, For 1 dose, Pre-Op aspirin tablet 325 mg Given 05/20/2022 12:06 PM CDT 325 mg 325 mg, oral, Every evening, First dose on Tue05/20/22 at 1030 atorvastatin tablet 80 mg (LIPITOR) Given 05/19/2022 10:26 PM CDT 80 mg 80 mg, oral, Daily at bedtime, First dose on Tue05/18/22 at 2100 Given 05/18/2022 8:51 PM CDT 80 mg benzocaine-menthoL 15-3.6 mg per lozenge Given 022 10:15 AM CDT 1 lozenge 1 lozenge (CEPACOL) 1 lozenge, oral, As needed, sore throat, Starting on Tue05/18/22 at 1608 Given 05/19/2022 5:10 AM CDT 1 lozenge benzonatate capsule 100 mg (TESSALON PER LES) Given 05/19/2022 10:33 PM CDT 100 mg 100 mg, oral, 3 times daily PRN, cough, Starting on Tue05/18/22 at 1608, Swallow whole. Do NOT crush, chew or open capsule. Given 05/19/2022 5:01 AM CDT 100 mg bisacodyL suppository 10 mg (DULCOLAX) 10 mg, rectal, Daily PRN, constipation, Starting on Tue05/18/22 at 1608, Ordered sequence of administration: polyethylene glycol, then bisacodyl until BM achieved. buPROPion XL 24 hr tablet 150 mg (WELLBUTRIN Given 9:08 AM CDT 150 mg XL) 150 mg, oral, Every morning, First dose on Tue05/19/22 at 0900, Swallow whole. Do NOT crush, chew, or split tablet. Given 05/19/2022 8:49 AM CDT 150 mg calcium carbonate chewable tablet Given 05/19/2022 10: 41 PM CDT 400 mg of calcium 400 mg of calcium (TUMS) 400 mg of calcium, oral, Every 2 hour PRN, indigestion, Starting on Tue05/18/22 at 1608, Doses listed are in mg of elemental calcium. Take with food. 500 mg calcium carbonate contains 200 mg of elemental calcium. Given 05/19/2022 7:57 PM CDT 400 mg of calcium Given 05/19/2022 10:15 AM CDT 400 mg of calcium carboxymethylcellulose 0.5 % ophthalmic solution 2 drop (REFRESH PLUS) 2 drop, both eyes, 4 times daily PRN, dry eyes, Starti ng on Tue05/18/22 at 1608 ceFAZolin in dextrose (iso-os) IVPB 2 New Bag 05/19/2022 3:38 AM CDT 2 g 200 mL/hr g (ANCEF) 2 g, intravenous, at 200 mL/hr, Administer over 30 Minutes, Every 8 hours, First dose on Tue05/18/22 at 2030, For 2 doses, Start within 8 hours of last IV dose., Drug Monitoring Program: Pharmacist to adjust medication dosing based on indication and drug clearance factors., Indications: Prophylaxis, surgical New Bag 05/18/2022 8:49 PM CDT 2 g 200 mL/hr dexAMETHasone injection 4 mg (DECADRON) 4 mg, intravenous, Once as needed, nausea, vomiting, S tarting on Tue05/18/22 at 1608, For 1 dose, Give only if NOT given during the pre or intraoperative period. If ondansetron ordered, give dexamethasone with first dose of ondansetron. diphenhydrAMINE capsule 25 mg (BENADRYL) Given 05/20/2022 9:21 AM CDT 25 mg 25 mg, oral, Every 6 hours PRN, itching, Starting on Tue05/18/22 at 1722 Given 05/19/2022 5:04 AM CDT 25 mg Given 05/18/2022 5:38 PM CDT 25 mg fentaNYL injection 25 mcg (SUBLIMAZE) Given 05/18/2022 11:21 AM CDT 100 mcg 25 mcg, intravenous, Every 2 min PRN, sedation, or pain before and during sedation procedure, Starting on Tue05/18/22 at 1055, Pre-Op, Administer over 1 minute immediately prior to the procedure. May repeat every 2 minutes to a maximum of 200 mcg, until pain score of 3 or less from baseline. Do not give if respiratory rate is less than 8 breaths/minute fentaNYL injection 25 mcg (SUBLIMAZE) Given 05/18/2022 2:37 PM CDT 25 mcg 25 mcg, intravenous, Every 2 min PRN, For pain 4 or greater (maximum 100 mcg). If max dose of Fentanyl is reached and if pain is greater than 4, discontinue Fentanyl: give Hydromorphone, Starting on Tue05/18/22 at 1414, PACU (only) Given 05/18/2022 2:30 PM CDT 25 mcg Given 05/18/2022 2:23 PM CDT 25 mcg FLUoxetine capsule 80 mg (PROzac) Given 05/20/2022 9:08 AM CDT 80 mg 80 mg, oral, Daily, First dose on Tue05/19/22 at 0900, FLUoxetine orderable was interchanged for FLUoxetine tablet/capsule Given 05/19/2022 8:49 AM CDT 80 mg fluticasone furoate 100 mcg/actuation inhaler Given 9:11 AM CDT 1 puff 1 puff (ARNUITY ELLIPTA) 1 puff, inhalation, Daily, First dose on Tue05/19/22 at 0900, Rinse mouth with water after use to reduce aftertaste and incidence of candidiasis. Do not swallow. Given 05/19/2022 8:49 AM CDT 1 puff furosemide tablet 40 mg (LASIX) Given 05/19/2022 8:49 AM CDT 40 mg 40 mg, oral, 2 times daily, First dose on Tue05/18/22 at 1700 granisetron (PF) injection 1 mg (KYTRIL) Given 05/18/2022 2:16 PM CDT 1 mg 1 mg, intravenous, Once as needed, nausea, vomiting, Starting on Tue05/18/22 at 1414, For 1 dose, PACU (only), If patient does not respond to ondansetron or haloperidol. (order of antiemetic administration - ondansetron then haloperidol then granisetron) haloperidol lactate injection 1 mg (HALD OL) 1 mg, intravenous, Every 6 hours PRN, na usea, vomiting, Starting on Tue05/18/22 at 1608, For 48 hours, Total of 3 doses in 24 hour period. RASS must be -2 or higher to administer. Reassess for nausea or vo miting after at least 10 minutes. If nausea or vomiting persists administer next ordered antiemeti c medications (order for antiemetic medication administration ondansetron then haloperidol then promethazine) HYDROmorphone (PF) injection 0.2 mg Given 05/18/2022 3:16 PM CDT 0.2 mg (DILAUDID) 0.2 mg, intravenous, Every 5 min PRN, moderate pain or score 4-6 of 10, severe pain or score 7-10 of 10, Starting on Tue05/18/22 at 1414, PACU (only), Up to maximum total dose of 2 mg Given 05/18/2022 3:06 PM CDT 0.2 mg Given 05/18/2022 2:50 PM CDT 0.2 mg HYDROmorphone (PF) injection 0.2 mg Given 05/19/2022 10:41 PM CD T 0.2 mg (DILAUDID) 0.2 mg, intravenous, Every 2 hour PRN, severe pain or score 7-10 of 10, Starting on Tue05/18/22 at 2303 ketorolac injection 15 mg (TORADOL) Given 05/19/2022 11:54 AM CDT 15 mg 15 mg, intravenous, Every 6 hours, First dose on Tue05/18/22 at 1615, For 4 doses, Only if GFR greater than 50 Adult IV push rate: Over 15 seconds. Peds IV push rate: Over 1 minute. 60 mg dose only for IM, not recommended for IV. Given 05/19/2022 3:38 AM CDT 15 mg Given 05/18/2022 9:24 PM CDT 15 mg lactated Ringer's bolus 500 Bolus from Bag 05/18/2022 11:41 PM CDT 500 mL 500 mL/hr mL 500 mL, intravenous, at 500 mL/hr, Administer over 1 Hours, Once, On Tue05/18/22 at 2345, For 1 dose lactated ringers Continued from OR 05/18/2022 4:22 PM CDT 75 mL/hr 75 mL/hr 75 mL/hr, intravenous, Continuous, Starting on Tue05/18/22 at 1615, Until patient has 500cc po intake lactated ringers New Bag 05/18/2022 11:20 AM CDT 20 mL/hr 20 mL/hr 20 mL/hr, intravenous, Once as needed, to keep vein open, Starting on Tue05/18/22 at 1055, For 1 dose, Pre-Op lactated ringers Continued from OR 05/18/2022 2:05 PM CDT 20 mL/hr 20 mL/hr 20 mL/hr, intravenous, Continuous, Starting on Tue05/18/22 at 1415, PACU & Post-Op lamoTRIgine tablet 200 mg (LaMICtaL) Given 05/20/2022 9:09 AM CDT 200 mg 200 mg, oral, 2 times daily, First dose on Tue05/18/22 at 2100 Given 05/19/2022 10:25 PM CDT 200 mg Given 05/19/2022 8:48 AM CDT 200 mg magnesium oxide tablet 200 mg (MAG-OX) Given 05/20/2022 5:52 AM CDT 200 mg 200 mg, oral, Daily before breakfast, First dose on Tue05/19/22 at 0700, magnesium oxide 200 mg daily was interchanged for magnesium gluconate 250 mg daily Given 05/19/2022 6:12 AM CDT 200 mg midazolam (PF) injection 1 mg (VERSED) Given 05/18/2022 11:19 AM CDT 2 mg 1 mg, intravenous, Every 2 min PRN, sedation, RASS 0, Starting on Tue05/18/22 at 1055, Pre-Op, May repeat every 2 minutes for a maximum of 5 mg. Do not give if respiratory rate is less than 8 breaths/minute. naloxone injection 0.2 mg (NARCAN) 0.2 mg, intravenous, As needed, respirat ory depression, Starting on Tue05/18/22 at 1608, For RASS Score -4 or less, respiratory rate of l ess than 8 breaths/min. Notify provider/service and rapid response team (if av ailable at institution). ondansetron (PF) injection 4 mg (ZOFRAN) Given 05/19/2022 3:02 PM CDT 4 mg 4 mg, intravenous, Every 6 hours PRN, nausea, vomiting, Starting on Tue05/18/22 at 1608, For 48 hours, Reassess for nausea or vomiting after at least 10 minutes. If nausea or vomiting persists administer next ordered antiemetic medications (order for antiemetic medication administration ondansetron then haloperidol then promethazine). Given 05/18/2022 9:24 PM CDT 4 mg ondansetron (PF) injection 4 mg (ZOFRAN) Given 05/18/2022 3:02 PM CDT 4 mg 4 mg, intravenous, Every 6 hours PRN, nausea, vomiting, (If patient has not received in the previous 6 hours), Starting on Tue05/18/22 at 1414, PACU (only), Administer first. If nausea and vomiting persists, proceed with haloperidol. (order of antiemetic administration - ondansetron then haloperidol then granisetron) oxyCODONE IR tablet 10 mg (ROXICODONE) Given 05/19/2022 11:53 AM CDT 10 mg 10 mg, oral, Every 4 hours PRN, severe pain or score 7-10 of 10, Starting on Tue05/18/22 at 1608 Given 05/19/2022 7:42 AM CDT 10 mg Given 05/19/2022 3:39 AM CDT 10 mg oxyCODONE IR tablet 10 mg (ROXICODONE) Given 05/18/2022 11:12 AM CDT 10 mg 10 mg, oral, Once as needed, moderate pain or score 4-6 of 10, severe pain or score 7-10 of 10, Starting on Tue05/18/22 at 1109, For 1 dose, Pre-Op oxyCODONE IR tablet 10 mg (ROXICODONE) Given 05/19/2022 4:00 PM CDT 10 mg 10 mg, oral, Every 4 hours PRN, moderate pain or score 4-6 of 10, Starting on Tue05/19/22 at 1344, If patient is >75 consider changing to 2.5-5mg scale oxyCODONE IR tablet 15 mg (ROXICODONE) Given 05/20/2022 2:06 PM CDT 15 mg 15 mg, oral, Every 4 hours PRN, severe pain or score 7-10 of 10, Starting on Tue05/19/22 at 1344 Given 05/20/2022 10:04 AM CDT 15 mg Given 05/20/2022 5:52 AM CDT [address] tablet 40 mg (PROTONIX) Given 05/19/2022 6:12 AM CDT 40 mg 40 mg, oral, Daily before breakfast, First dose on Tue05/19/22 at 0700, pantoprazole 40 mg oral daily was interchanged for esomeprazole 20 or 40 mg oral daily Swallow whole. Do NOT crush, chew, or split tablet. pantoprazole DR tablet 40 mg (PROTONIX) Given 05/20/2022 6:43 AM CDT 40 mg 40 mg, oral, 2 times daily before breakfast and dinner, First dose (after last modification) on Tue05/19/22 at 1600, pantoprazole 40 mg oral daily was interchanged for esomeprazole 20 or 40 mg oral daily Swallow whole. Do NOT crush, chew, or split tablet. Given 05/19/2022 3:59 PM CDT 40 mg phenoL 1.4 % spray 5 spray (CHLORASEPTIC ) 5 spray, mouth/throat, Every 2 hour PRN, sore throat, Starting on Tue05/18/22 at 1608, to mouth/throat polyethylene glycol powder packet 1 pack et (MIRALAX) 1 packet, oral, Daily PRN, constipation, Starting on Tue05/18/22 at 1608, Ordered sequence of administration: polyethylene glycol, then bisacodyl until BM achieved. Avoid mixing with starch-based thickened liquids. pregabalin capsule 300 mg (LYRICA) Given 05/18/2022 8:52 PM CDT 300 mg 300 mg, oral, 2 times daily, First dose on Tue05/18/22 at 2100 pregabalin capsule 600 mg (LYRICA) Given 05/20/2022 9:07 AM CDT 600 mg 600 mg, oral, 2 times daily, First dose (after last modification) on Tue05/19/22 at 0900 Given 05/19/2022 10:24 PM CDT 600 mg Given 05/19/2022 8:57 AM CDT 600 mg promethazine injection 6.25 mg (PHENERGA N) 6.25 mg, intravenous, Every 6 hours PRN, nausea, vomiting, Starting on Tue05/18/22 at 1608, For 48 hours, RASS must be -2 o r higher to administer. Reassess for nausea or vomiting after at least 10 minutes. I f nausea or vomiting persists administer next ordered antiemetic medications (ord er for antiemetic medication administration ondansetron then haloperidol then promethazine) QUEtiapine tablet 50 mg (SEROquel) Given 05/19/2022 10:25 PM CDT 50 mg 50 mg, oral, Daily at bedtime, First dose on Tue05/18/22 at 2100 Given 05/18/2022 8:52 PM CDT 50 mg rOPINIRole tablet 2 mg (REQUIP) Given 05/19/2022 10:25 PM CDT 2 mg 2 mg, oral, Daily at bedtime, First dose on Tue05/18/22 at 2100 Given 05/18/2022 8:51 PM CDT 2 mg scopolamine base 1 mg Medication Applied 05/18/2022 11:18 AM 1 patch Behind Right over 3 days 1 patch CDT Ear (TRANSDERM SCOP) 1 patch, transdermal, Administer over 72 Hours, Once as needed, nausea and vomiting, Starting on Tue05/18/22 at 1110, For 1 dose, Pre-Op, Contains 1.5 mg to deliver 1 mg/72 hours. sennosides-docusate sodium 8.6-50 mg per Given 05/20/2022 9:08 A M CDT 1 tablet tablet 1 tablet (SENOKOT-S) 1 tablet, oral, 2 times daily, First dose on Tue05/18/22 at 2100, Do not give if patient has diarrhea. Given 05/19/2022 10:25 PM CDT 1 tablet Given 05/19/2022 8:49 AM CDT 1 tablet traMADoL tablet 100 mg (ULTRAM) Given 05/20/2022 1:59 PM CDT 100 mg 100 mg, oral, Every 6 hours PRN, severe pain or score 7-10 of 10, Starting on Tue05/18/22 at 1608, First line therapy or for pain greater than comfort goal (not to exceed 400 mg in 24 hours). Given 05/20/2022 7:32 AM CDT 100 mg Given 05/20/2022 1:24 AM CDT 100 mg traMADoL tablet 50 mg (ULTRAM) Given 05/18/2022 8:51 PM CDT 50 mg 50 mg, oral, Every 6 hours PRN, moderate pain or score 4-6 of 10, Starting on Tue05/18/22 at 1608, First line therapy valACYclovir tablet 500 mg (VALTREX) Given 05/20/2022 9:09 AM CDT 500 mg 500 mg, oral, Daily, First dose on Tue05/19/22 at 0900, Drug Monitoring Program: Pharmacist to adjust medication dosing based on indication and drug clearance factors., Indications: Prophylaxis, medical Given 05/19/2022 9:04 AM CDT 500 mg zonisamide capsule 300 mg (ZONEGRAN) Given 05/20/2022 9:07 AM CDT 300 mg 300 mg, oral, 2 times daily, First dose on Tue05/18/22 at 2100, Swallow whole. Do NOT crush, chew or open capsule. Given 05/19/2022 10:24 PM CDT 300 mg Given 05/19/2022 8:48 AM CDT 300 mg documented in this encounter Active and Recently Administered Medications Times are shown in CDT. Scheduled Medication Order 05/18/2022 05/19/2022 05/20/2022 acetaminophen tablet 1,000 mg (TYLENOL) 1738 (Given - Provider: Corrie Toscano RRebekah.)2339 (Given - Provider: Catalina Mccloud R.N.) 0511 (Given - Provider: Catalina Mccloud R.N.)1153 (Given - Provider: Isaura Vu RBrittonN.)1725 (Given - Provider: Carole Thorne.S.N., R.N., O.C.N.) 0125 (Given - Provider: Carole Pérez.S.N., R.N.)0552 (Given - Provider: Jere Levy RBrittonN.)1206 (Given - Provider: Kennedi Jensen RBrittonNBritton) 1,000 mg, oral, Every 6 hours, First dose on Tue05/18/22 at 1815 acetaminophen tablet 1,000 mg (TYLENOL) (COMPLETED) 11 12 (Given - Provider: Cristy Rosario R.NBritton) 1,000 mg, oral, Once, On Tue05/18/22 at 1100, For 1 dose, Pre-Op albuterol 90 mcg/actuation inhaler 2 puff (COMPLETED) 1129 (Given - Provider: Cristy Rosario R.N.) 2 puff, inhalation, Once, On Tue05/18/22 at 1115, For 1 dose, Pr e-Op aspirin tablet 325 mg 1206 (Give n - Provider: Kennedi Jensen RBrittonNBritton) 325 mg, oral, Every evening, First dose on Tue05/20/22 at 1030 atorvastatin tablet 80 mg (LIPITOR) 2050 (Given - Prov ider: Bettie Macias R.N.) 2226 (Given - Provider: Leticia Thorne, R. N., O.C.N.) 80 mg, oral, Daily at bedtime, First dose on Tue05/18/22 at 2100 buPROPion XL 24 hr tablet 150 mg (WELLBUTRIN XL) 0849 (Given - Provider: Isaura Vu R.N.) 0908 (Given - Provider: Isaura Vu R.N.) 150 mg, oral, Every morning, First dose on Tue05/19/22 at 0900, Swallow whole. Do NOT crush, chew, or split tablet. ceFAZolin in dextrose (iso-os) IVPB 2 g (ANCEF) (COMPL ETED) 2048 (New Bag - Provider: Bettie Macias R.N.) 033 (New Bag - Provider: Catalina claudio RBetsy) 2 g, intravenous, at 200 mL/hr, Administ er over 30 Minutes, Every 8 hours, First dose on Tue05/18/22 at 2030, For 2 doses, Start within 8 hours of last IV dose., Drug Monitoring Program: Pharmacist to a djust medication dosing based on indicat ion and drug clearance factors., Indications: Prophylaxis, surgical ceFAZolin injection 2,000 mg (ANCEF) (COMPLETED) 1240 (Given - Provider: Ihsan Townsend, TURNTABLE ENGINEER, SENIOR RESTAURANT MANAGER) 2,000 mg (rounded from 1,652.5 mg = 25 m g/kg ? 66.1 kg), intravenous, Once, On Tue05/18/22 at 1045, For 1 dose, Intra-Op, Preoperatively within 1 hour prior to surgical incision If needed, reconstitute vial per package insert instructions. S ee IVAG for administration guidelines. , Drug Monitoring Program: Pharmacist to adjust medication dosing based on indication and drug clearance factors., Indications: Prophylaxis, surgical FLUoxetine capsule 80 mg (PROzac) 0849 ( Given - Provider: Isaura Vu R.N.) 0908 (Given - Provider: Isaura Vu R.N.) 80 mg, oral, Daily, First dose on Tue at 0900, FLUoxetine orderable was interchanged for FLUoxetine tablet/capsule fluticasone furoate 100 mcg/actuation inhaler 1 puff (ARNUIT Y ELLIPTA) 0849 (Given - Provider: Isaura Vu R.N.) 0911 (Given - Provider: Isaura Vu R.N.) 1 puff, inhalation, Daily, First dose on Tue05/19/22 at 0900, Rinse mouth with water after use to reduce aftertaste and incidence of candidiasis. Do not swallow. furosemide tablet 40 mg (LASIX) 1702 (Not Given - Prov ider: Corrie Toscano R.N. - Reason: Patient/family refused) 0849 (Given - Provider: Isaura Vu R.N.)1725 (Not Given - Provider: Jonny ThorneSBetsy, R.N., O.C.N. - Reason: Contraindicated - Comment: patient having nausea/vomiting and low BP) 0909 (Not Given - Provider: Isaura Vu R.N. - Reason: Patient/family refused) 40 mg, oral, 2 times daily, First dose on Tue05/18/22 at 1700 ketorolac injection 15 mg (TORADOL) (COMPLETED) 1702 ( Given - Provider: Corrie Toscano R.N.)2124 (Given - Provider: Jere Levy R.N.) 0338 (Given - Provider: Catalina Mccloud R.N.)1154 (Given - Provider: Isaura Vu R.N. - Comment: not given at 1015, need new line) 15 mg, intravenous, Every 6 hours, First dose on Tue05/18/22 at 1615, For 4 doses, Only if GFR greater than 50 Adult IV push rate: Over 15 seconds. Peds IV push rate: Over 1 minute. 60 mg dose only for IM, not recommended for IV. lactated Ringer's bolus 500 mL (COMPLETED) 2341 (Bolus from Bag - Provider: Catalina Mccloud R.N.) 500 mL, intravenous, at 500 mL/hr, Admin ister over 1 Hours, Once, On Tue05/18/22 at 2345, For 1 dose lamoTRIgine tablet 200 mg (LaMICtaL) 2051 (Given - Pro vider: Bettie Macias R.N.) 0848 (Given - Provider: Isaura Vu R.N.)2225 (Given - Provider: Jonny ThorneSBrittonNBritton, R.N., O.C.N. - Comment: pt request) 0909 (Given - Provider: Isaura Vu R.N.) 200 mg, oral, 2 times daily, First dose on Tue05/18/22 at 2100 magnesium oxide tablet 200 mg (MAG-OX) 0 612 (Given - Provider: Catalina Mccloud RBetsy) 0552 (Given - Provider: Jere collado RBtesy) 200 mg, oral, Daily before breakfast, Fi rst dose on Tue05/19/22 at 0700, magnesium oxide 200 mg daily was interchanged for magnesium gluconate 250 mg daily ondansetron (PF) injection 4 mg (ZOFRAN) 1115 (Due) 4 mg, intravenous, Once, On Tue05/18/22 at 1115, For [address] tablet 40 mg (PROTONIX) (CANCELED) 0612 (Given - Provider: Catalina Mccloud R.N.) 40 mg, oral, Daily before breakfast, Fir st dose on Tue05/19/22 at 0700, pantoprazole 40 mg oral daily was interchanged for esomeprazole 20 or 40 mg oral daily Swallow whole. Do NOT crush, chew, or split tablet. pantoprazole DR tablet 40 mg (PROTONIX) 1559 (Given - Provider: Isaura Vu R.N.) 0643 (Given - Provider: Jere collado RBrittonNBritton) 40 mg, oral, 2 times daily before breakf ast and dinner, First dose (after last modification) on Tue05/19/22 at 1600, pantoprazole 40 mg oral daily was interchanged for esomeprazole 20 or 40 mg oral patti y Swallow whole. Do NOT crush, chew, or split tablet. pregabalin capsule 300 mg (LYRICA) (CANCELED) 2051 (Gi saeid - Provider: Bettie Macias R.N.) 300 mg, oral, 2 times daily, First dose on Tue05/18/22 at 2100 pregabalin capsule 600 mg (LYRICA) 856 (Given - Provider: Isaura Vu R.N.)2223 (Given - Provider: Candace Lanza M.S.NBritton, R.N., O.C.N. - Comment: pt request) 0907 (Given - Provider: Isaura Vu R.N.) 600 mg, oral, 2 times daily, First dose (after last modification) on Tue05/19/22 at 0900 QUEtiapine tablet 50 mg (SEROquel) 2051 (Given - Provi marquis: Bettie Macias R.N.) 2224 (Given - Provider: Candace guerra M.S.N., R.N., O.C.N. - Comment: pt request) 50 mg, oral, Daily at bedtime, First dose on Tue05/18/22 at 2100 rOPINIRole tablet 2 mg (REQUIP) 2050 (Given - Provider: Pravin De La Rosa R.N.) 222 (Given - Provider: Carole Thorne.S.N., R.N., O.C.N. - Comment: pt request) 2 mg, oral, Daily at bedtime, First dose on Tue05/18/22 at 2100 sennosides-docusate sodium 8.6-50 mg per tablet 1 tabl et (SENOKOT-S) 2051 (Given - Provider: Bettie R Gilberto, R.N.) 0849 (Given - Provider: Isaura Vu R.N.)2225 (Given - Provider: Sen Thorne., R.N., O.C.N. - Comment: pt request) 0908 (Given - Provider: Isaura Vu R.N.) 1 tablet, oral, 2 times daily, First dos e on Tue05/18/22 at 2100, Do not give if patient has diarrhea. tranexamic acid in NaCl IVPB 1,000 mg (CYKLOKAPRON) (C OMPLETED) 1240 (Given - Provider: Ihsan Townsend APRN, [facility]) 1,000 mg (1 g), intravenous, at 300 mL/h r, Administer over 20 Minutes, Once, On Tue05/18/22 at 1045, For 1 dose, Intra-Op, Administer in OR upon induction valACYclovir tablet 500 mg (VALTREX) 090 4 (Given - Provider: Isaura Vu R.N.) 0909 (Given - Provider: Isaura Vu R.N.) 500 mg, oral, Daily, First dose on Tue at 0900, Drug Monitoring Program: Pharmacist to adjust medication dosing based on indication and drug clearance factors., Indications: Prophylaxis, medical zonisamide capsule 300 mg (ZONEGRAN) 2051 (Given - Pro vider: Bettie Macias R.N.) 0848 (Given - Provider: Isaura Vu R.N.)2224 (Given - Provider: Sen Thorne., R.N., O.C.N. - Comment: pt request) 0907 (Given - Provider: Isaura Vu R.N.) 300 mg, oral, 2 times daily, First dose on Tue05/18/22 at 2100, Swallow whole. Do NOT crush, chew or open capsule. Continuous Medication Order 05/18/2022 05/19/2022 05/20/2022 lactated ringers 1622 (Continued from OR - Provider: Corrie hui R.NBritton) 75 mL/hr, intravenous, Continuous, Start ing on Tue05/18/22 at 1615, Until patient has 500cc po intake lactated ringers 1405 (Continued from OR - Provider: Eve barrientos, R.N.) 20 mL/hr, intravenous, Continuous, Start ing on Tue05/18/22 at 1415, PACU & Post-Op PRN Medication Order 05/18/2022 05/19/2022 05/20/2022 albuterol nebulizer solution 2.5 mg 2.5 mg, nebulization, Every 6 hours PRN, shortness of breath, wheezing, Starting on Tue05/18/22 at 1608, Albuterol nebs were interchanged for albuterol/levalbuterol MDI (same frequency) benzocaine-menthoL 15-3.6 mg per lozenge 1 lozenge (CEPACOL) 0510 (Given - Provider: Catalina Mccloud R.N.)1015 (Given - Provider: Isaura Vu R.N.) 1 lozenge, oral, As needed, sore throat, Starting on Tue05/18/22 at 1608 benzonatate capsule 100 mg (TESSALON PERLES) 0501 (Given - Provider: Catalina Mccloud, R.N.)2233 (Given - Provider: Candace Lanza, Carole.S.N., R.N., O.C.N.) 100 mg, oral, 3 times daily PRN, cough, Starting on Tue05/18/22 at 1608, Swallow whole. Do NOT crush, chew or open capsule. bisacodyL suppository 10 mg (DULCOLAX) 10 mg, rectal, Daily PRN, constipation, Starting on Tue05/18/22 at 1608, Ordered sequence of administration: polyethylene glycol, then bisacodyl until BM achieved. calcium carbonate chewable tablet 400 mg of calcium (TUMS) 1015 (Given - Provider: Isaura Vu R.German.)1957 (Given - Provider: Melissa Garcia R.N.)2241 (Given - Provider: Carole Thorne.S.N., R.N., O.C.N.) 400 mg of calcium, oral, Every 2 hour [place] N, indigestion, Starting on Tue05/18/22 at 1608, Doses listed are in mg of elemental calcium. Take with food. 500 mg calcium carbonate contains 200 mg of elemental calcium. carboxymethylcellulose 0.5 % ophthalmic solution 2 drop (REFRESH PLUS) 2 drop, both eyes, 4 times daily PRN, dry eyes, Starti ng on Tue05/18/22 at 1608 dexAMETHasone injection 4 mg (DECADRON) 1508 (Canceled Entry - Provider: Isaura Vu, R.NBritton) 4 mg, intravenous, Once as needed, nause a, vomiting, Starting on Tue05/18/22 at 1608, For 1 dose, Give only if NOT given during the pre or intraoperative period. If ondansetron ordered, give dexamethasone with first dose of ondansetron. diazePAM tablet 10 mg (VALIUM) 10 mg, oral, 2 times daily PRN, muscle spasms, Starting on T 05/18/22 at 1651 diphenhydrAMINE capsule 25 mg (BENADRYL) 1738 (Given - Provider: Corrie Toscano RBetsy) 0504 (Given - Provider: Catalina Mccloud RBrittonNBritton) 092 1 (Given - Provider: Isaura Vu RBrittonNBritton) 25 mg, oral, Every 6 hours PRN, itching, Starting on Tue05/18/22 at 1722 fentaNYL injection 25 mcg (SUBLIMAZE) (CANCELED) 1121 (Given - Provider: Cristy Rosario RBrittonNBritton) 25 mcg, intravenous, Every 2 min PRN, se dation, or pain before and during sedation procedure, Starting on Tue05/18/22 at 1055, Pre-Op, Administer over 1 minute immediately prior to the procedure. May re peat every 2 minutes to a maximum of 200 mcg, until pain score of 3 or less from baseline. Do not give if respiratory rate is less than 8 breaths/minute fentaNYL injection 25 mcg (SUBLIMAZE) (CANCELED) 1416 (Given - Provider: Eve Smith RBrittonN.)1423 (Given - Provider: Christiano Posada.N.)1430 (Given - Provider: Eve Smith R.N.)1437 (Given - Provider: Eve Smith R.NBritton) 25 mcg, intravenous, Every 2 min PRN, Fo r pain 4 or greater (maximum 100 mcg). If max dose of Fentanyl is reached and if pain is greater than 4, discontinue Fentanyl: give Hydromorphone, Starting on Tue05/18/22 at 1414, PACU (only) granisetron (PF) injection 1 mg (KYTRIL) (COMPLETED) 1 416 (Given - Provider: Eve Smith R.NBritton) 1 mg, intravenous, Once as needed, nause a, vomiting, Starting on Tue05/18/22 at 1414, For 1 dose, PACU (only), If patient does not respond to ondansetron or haloperidol. (order of antiemetic administrat ion - ondansetron then haloperidol then granisetron) haloperidol lactate injection 1 mg (HALDOL) 1 mg, intravenous, Every 6 hours PRN, na usea, vomiting, Starting on Tue05/18/22 at 1608, For 48 hours, Total of 3 doses in 24 hour period. RASS must be -2 or higher to administer. Reassess for nausea or vomiting after at least 10 minutes. If nausea or vomiting persists administer next ordered antiemetic medications (order for antiemetic medication administration ondansetron then haloperidol then promethazine) HYDROmorphone (PF) injection 0.2 mg (DILAUDID) (CANCEL ED) 1450 (Given - Provider: Viktoriya Land R.N.)1506 (Given - Provider: Viktoriya Land R.N.)1516 (Given - Provider: Viktoriya Land R.N.) 0.2 mg, intravenous, Every 5 min PRN, mo derate pain or score 4-6 of 10, severe pain or score 7-10 of 10, Starting on Tue05/18/22 at 1414, PACU (only), Up to maximum total dose of 2 mg HYDROmorphone (PF) injection 0.2 mg (DILAUDID) 2241 (Given - Provider: Jonny ThorneS.N., R.N., O.C.N.) 0.2 mg, intravenous, Every 2 hour PRN, s evere pain or score 7-10 of 10, Starting on Tue05/18/22 at 2303 lactated ringers (COMPLETED) 1120 (New Bag - Provider: Cristy Rosario RBetsy) 20 mL/hr, intravenous, Once as needed, t o keep vein open, Starting on Tue05/18/22 at 1055, For 1 dose, Pre-Op midazolam (PF) injection 1 mg (VERSED) (CANCELED) 1119 (Given - Provider: Cristy Rosario RBetsy) 1 mg, intravenous, Every 2 min PRN, moraima tion, RASS 0, Starting on Tue05/18/22 at 1055, Pre-Op, May repeat every 2 minutes for a maximum of 5 mg. Do not give if respiratory rate is less than 8 breaths/minute. naloxone injection 0.2 mg (NARCAN) 0.2 mg, intravenous, As needed, respirat ory depression, Starting on Tue05/18/22 at 1608, For RASS Score -4 or less, respiratory rate of less than 8 breaths/min. Notify provider/service and rapid response team (if available at institution). ondansetron (PF) injection 4 mg (ZOFRAN) 2123 (Given - Provider: Jere Levy RRebekah.) 1502 (Given - Provider: Kiana Ramírez R.N.) 4 mg, intravenous, Every 6 hours PRN, na usea, vomiting, Starting on Tue05/18/22 at 1608, For 48 hours, Reassess for nausea or vomiting after at least 10 minutes. If nausea or vomiting persists administe r next ordered antiemetic medications (o rder for antiemetic medication administration ondansetron then haloperidol then promethazine). ondansetron (PF) injection 4 mg (ZOFRAN) (CANCELED) 15 (Given - Provider: Viktoriya Land R.N.) 4 mg, intravenous, Every 6 hours PRN, na usea, vomiting, (If patient has not received in the previous 6 hours), Starting on Tue05/18/22 at 1414, PACU (only), Administer first. If nausea and vomiting pers ists, proceed with haloperidol. (order o f antiemetic administration - ondansetron then haloperidol then granisetron) oxyCODONE IR tablet 10 mg (ROXICODONE) (CANCELED) 1738 (Given - Provider: Corrie Toscano RBrittonN.)2339 (Given - Provider: Catalina Mccloud RBrittonNBritton) 0339 (Given - Provider: Sharifa ArcherN.)0742 (Given - Provider: Catalina Mccloud R.N.)1153 (Given - Provider: Sharifa CuevasNBritton) 10 mg, oral, Every 4 hours PRN, severe p ain or score 7-10 of 10, Starting on Tue05/18/22 at 1608 oxyCODONE IR tablet 10 mg (ROXICODONE) (COMPLETED) 111 2 (Given - Provider: Cristy Rosario RBrittonNBritton) 10 mg, oral, Once as needed, moderate pa in or score 4-6 of 10, severe pain or score 7-10 of 10, Starting on Tue05/18/22 at 1109, For 1 dose, Pre-Op oxyCODONE IR tablet 10 mg (ROXICODONE)(Linked Group 1) 1600 (Given - Provider: Isaura Vu R.N.)2004 (See Alternative - Provider: Melissa Garcia R.N.) 0124 (See Alternative - Provider: Jonny PérezSBetsy, R.N.)0552 (See Alternative - Provider: Jere Levy RBrittonN.)1004 (See Alternative - Provider: Isaura Vu RBrittonN.)1406 (See Alternative - Provider: Sharifa CuevasNBritton) 10 mg, oral, Every 4 hours PRN, moderate pain or score 4-6 of 10, Starting on Tue05/19/22 at 1344, If patient is >75 consider changing to 2.5-5mg scale oxyCODONE IR tablet 15 mg (ROXICODONE)(Linked Group 1) 1599 (See Alternative - Provider: Isaura Vu R.N.)2004 (Given - Provider: Melissa D Myran, R.N.) 0124 (Given - Provider: Leticia Pérez, R.N.)0577 (Given - Provider: Jere Levy R.N.)1004 (Given - Provider: Isaura Vu R.N. - Comment: per pt)1406 (Given - Provider: Isaura Vu R.N.) 15 mg, oral, Every 4 hours PRN, severe p ain or score 7-10 of 10, Starting on Tue05/19/22 at 1344 phenoL 1.4 % spray 5 spray (CHLORASEPTIC) 5 spray, mouth/throat, Every 2 hour PRN, sore throat, Starting on Tue05/18/22 at 1608, to mouth/throat polyethylene glycol powder packet 1 packet (MIRALAX) 1 packet, oral, Daily PRN, constipation, Starting on Tue05/18/22 at 1608, Ordered sequence of administration: polyethylene glycol, then bisacodyl until BM achieved. Avoid mixing with starch-based thickened liquids. promethazine injection 6.25 mg (PHENERGAN) 6.25 mg, intravenous, Every 6 hours PRN, nausea, vomiting, Starting on Tue05/18/22 at 1608, For 48 hours, RASS must be -2 or higher to administer. Reassess for nausea or vomiting after at least 10 minut es. If nausea or vomiting persists admin ister next ordered antiemetic medications (order for antiemetic medication administration ondansetron then haloperidol then promethazine) scopolamine base 1 mg over 3 days 1 patch ([employer]) (CANCELED) 1118 (Medication Applied - Provider: Cristy Rosario RBetsy) 1459 (Due: Medication Removed - Provider: Discharge Provider, Automatic - Comment: Time automatically adjusted from order being discontinued) 1 patch, transdermal, Administer over 72 Hours, Once as needed, nausea and vomiting, Starting on Tue05/18/22 at 1110, For 1 dose, Pre-Op, Contains 1.5 mg to deliver 1 mg/72 hours. traMADoL tablet 100 mg (ULTRAM)(Linked Group 2) 2050 ( See Alternative - Provider: Bettie Macias RBetsy) 0612 (Given - Provider: Catalina lerma R.N.)1209 (Given - Provider: Sharifa CuevasNBritton) 0124 (Given - Provider: Jonny PérezS.NBritton, R.N.)0732 (Given - Provider: Sharifa CuevasN.)1359 (Given - Provider: Isaura Vu R.N.) 100 mg, oral, Every 6 hours PRN, severe pain or score 7-10 of 10, Starting on Tue05/18/22 at 1608, First line therapy or for pain greater than comfort goal (not to exceed 400 mg in 24 hours). traMADoL tablet 50 mg (ULTRAM)(Linked Group 2) 2050 (Geronimo oleary - Provider: Bettie Macias R.N.) 0612 (See Alternative - Provider: Sal Mccloud R.N.)1209 (See Alternative - Provider: Isaura Vu RBetsy) 0124 (See Alternative - Provider: Jonny PérezS.NBritton, R.N.)0732 (See Alternative - Provider: Isaura Vu R.N.)1359 (See Alternative - Provider: Isaura Vu R.N.) 50 mg, oral, Every 6 hours PRN, moderate pain or score 4-6 of 10, Starting on Tue05/18/22 at 1608, First line therapy Linked Groups Order Group 1: oxyCODONE IR tablet 10 mg (ROXICODONE)Jump to med 10 mg, oral, Every 4 hours PRN, moderate pain or score 4-6 of 10, Starting on Tue05/19/22 at 1344
If patient is >75 consider changing to 2.5-5mg scale
Or oxyCODONE IR tablet 15 mg (ROXICODONE)Jump to med 15 mg, oral, Every 4 hours PRN, severe p ain or score 7-10 of 10, Starting on Tue05/19/22 at 1344 Group 2: traMADoL tablet 50 mg (ULTRAM)Jump to med 50 mg, oral, Every 6 hours PRN, moderate pain or score 4-6 of 10, Starting on Tue05/18/22 at 1608
First line therapy
Or traMADoL tablet 100 mg (ULTRAM)Jump to med 100 mg, oral, Every 6 hours PRN, severe pain or score 7-10 of 10, Starting on Tue05/18/22 at 1608
First line therapy or for pain greater than comfort goal (not to exceed 400 mg in 24 hours).
documented in this encounter Additional Health Concerns Assessment Noted Time PHQ-9 Depression Total Score: 16 02/11/2021 12:00 AM C DT documented as of this encounter Care Teams Weekend Anchor Relationship Specialty Start Date End Date Elsewhere, Pcp PCP - General Internal Medicine 12/25/21 documented as of this encounter
--- OUTSIDE RECORDS SUMMARY | 2022-07-06 14:46 | XMS_ITS | Encounter Summary ---
:1965 Author Organization [facility] Address [address] [place] [id number] Care Team Providers Name Role Phone Elsewhere, Pcp Primary Care Provider Unavailable Reason for Visit Reason Comments Post-op Problem Encounter Details Date Type Department Care Team Description 06/03/2022 Clinical Communication Department of Cyrus Polk st-op Problem Orthopedic Surgery in [place] Sou[place], [place] [address] [place] [address] [address] [place] [id number] [phone] Social History Tobacco Use Types Packs/Day Years [...] or relatives? How often do you attend baptist or Patient refused 2021 advent services? Do you belong to any clubs or No 05/17/2022 organizations such as baptist groups, unions, fraternal or athletic groups, or [...] place to sleep or slept in a care home (including now)? Education Answer Date Recorded What is the highest level of school Associate degree: [employer], 03/24/2021 you have completed or the highest technical, or vocational p john degree you have received? Sex Assigned at Date Recorded Female 03/01/2019 10:12 AM CDT documented as of this encounter Progress Notes Cyrus Polk M.D. - 06/03/2022 2:33 PM CDT History of instability in her shoulder. She called and noted she felt a pop in her shoulder, that itmay have come out of place. Attempted to call her, she was not there. Left a message to contact my service so she can be seen. Cyrus Polk M.D. CT CT Job ID: [id number] documented in this encounter Miscellaneous Notes Telephone Encounter - Flavia Broderick M.D. - 06/03/2022 5:24 PM CDT Spoke with pt. She is unsure if she dislocated her shoulder but it feels different. No new numbness/tingling in the hand. She is planning to get an XR on Tuesday. She knows to send the X-rays to us right after she gets them and will reach back out to us 06/07. We will review XR and advise her further thereafter. She verbalized understanding and that it is her responsibility to get XR/follow up in a timely fashion. 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 She thinks it popped out of place a couple days ago. It is quite painful and the shoulder is bent forward again. Please call her at [phone] to discuss. documented in this encounter Plan of Treatment Not on filedocumented as of this encounter Visit Diagnoses Not on filedocumented in this encounter Additional Health Concerns Assessment Noted Time PHQ-9 Depression Total Score: 16 02/11/2021 12:00 AM C DT documented as of this encounter Care Teams Cardiovascular Invasive Specialist Relationship Specialty Start Date End Date Elsewhere, Pcp PCP - General Internal Medicine 12/25/21 documented as of this encounter
--- OUTSIDE RECORDS SUMMARY | 2022-07-06 14:46 | XMS_ITS | Clinical Summary ---
:1965 Author Organization [facility] Address [address] [place] [address] Care Team Providers Name Role Phone Elsewhere, Pcp Primary Care Provider Unavailable Source Comments Patient records contain information from all sites at [facility]. For routine questions regarding patient records, call [phone] during business hours, M-F 8:00 AM - 5:00 PM Central Time. Record requests for emergency care only can be directed to [phone] at any time.[facility] Allergies Active Allergy Reactions Severity Noted Date Comments Acyclovir Rash Low 07/18/2016 Blister formati on Adhesive Other (see comments) Medium 07/26/2014 Adhesiv e they use to close during ingram rgery. And Tegaderm Adhesive Tape-Silicones Other (see comments) 4 Dermabond (and 3 other glues) and Taga derm Amoxicillin Rash 02/08/2006 Severe rash - h appened when patient wa s young Baclofen Rash 02/11/2021 Benzoin Other (see comments) 09/19/2006 Cefaclor Rash 07/31/2010 Cephalosporins Rash Low 10/13/2017 Chlorhexidine Dermatitis, Other 10/13/2017 Other lashaun ction(s): (see comments) Contact Lemmon titis Gabapentin Other (see comments) Low 05/12/2017 Dropped things Feels weird Nortriptyline Palpitations Low 05/12/2017 And heart raci ng Nsaids (Non-Steroidal Other (see comments) 03/08/2016 Gastric bypass Anti-Inflammatory Drug) Malka gentry bypass Pollen Extracts Other (see comments) 08/02/2010 Othe r Intolerances Line - Fentanyl causes hallucinations so not a true allergy. ; Other reaction( s): Other (see comm ents), Runny Nose Other Intoleran chery Line - Fentanyl causes hallucinations so not a true allergy. ; Silver Other (see comments) 07/18/2016 Blister es Other reaction( s): Contact Dermati tis, Other (see comm ents) Blisteres Sulfamethoxazole-Trimet Nausea Only, GI Low 10/13/2017 S tomach upset hoprim intolerance Other reaction( s): Gastrointestina l, GI Upset GI upset GI upset Stomach upset Medications Medication Sig Dispensed Refills Start End Date Status Date cetirizine (ZyrTEC) Take 10 mg by 0 Active 10 mg tablet mouth 2 (two) times a day. diazePAM (VALIUM) 10 Take 10 mg by 0 Active mg tablet mouth 2 (two) 9 times a day as needed. esomeprazole Take 40 mg by 0 Act lalo (NexIUM) [address] mouth 2 (two) 7 capsule times a day before breakfast and dinner. FLUoxetine (PROzac) Take 80 mg by 0 Active 40 mg capsule mouth every morning. furosemide (LASIX) Take 40 mg by 0 Active 40 mg tablet mouth daily. 9 lamoTRIgine Take 200 mg by 3 Act lalo (LaMICtal) 200 mg mouth 2 (two) 9 tablet times a day. MAG-G 27 mg Take 1 tablet by 3 A ctive magnesium (500 mg) mouth at bedtime. 9 tablet ondansetron ODT Take 1 tablet by 0 Active (ZOFRAN-ODT) 8 mg mouth 3 (three) 0 disintegrating times a day as tablet needed for nausea. polyethylene glycol Take 17 g by 0 Active (MIRALAX) 17 mouth as needed 7 gram/dose oral for constipation. powder valACYclovir Take 500 mg by 0 Ac tive (VALTREX) 500 mg mouth daily. 8 tablet zonisamide Take 300 mg by 8 Acti ve (ZONEGRAN) 100 mg mouth 2 (two) 9 capsule times a day. albuterol (PROVENTIL Inhale 2 puffs 0 Active HFA,VENTOLIN HFA) 90 every 6 (six) mcg/actuation hours as needed inhaler for wheezing or shortness of breath. cholecalciferol Take 125 mcg by 0 Active (VITAMIN D3) 125 mcg mouth every (5,000 Unit) tablet morning. benzonatate Take 100 mg by 6 Act lalo (TESSALON PERLES) mouth 3 (three) 9 100 mg capsule times a day as needed for cough. tiZANidine Take 4-8 mg by 1 Acti ve (ZANAFLEX) 4 mg mouth every 8 9 tablet (eight) hours as needed for muscle spasms. Muscle spasms QUEtiapine Take 50 mg by 0 Activ e (SEROquel) 50 mg mouth at bedtime. 0 tablet ipratropium-albutero Inhale 3 mL by 0 Active L (DUONEB) 0.5-2.5 nebulization 4 1 mg/3 mL nebulizer (four) times a solution day as needed for shortness of breath or wheezing. meclizine (ANTIVERT) Take 25 mg by 0 Active 25 mg tablet mouth every 6 1 (six) hours as needed for dizziness. pregabalin (LYRICA) Take 600 mg by 0 Active 300 mg capsule mouth 2 (two) 0 times a day. buPROPion XL Take 150 mg by 0 Ac tive (WELLBUTRIN XL) 150 mouth every 1 mg 24 hr tablet morning. atorvastatin Take 1 tablet (80 90 tablet 3 Active (LIPITOR) 80 mg mg total) by 1 tablet mouth at bedtime. butalbital-acetamino Take 1 tablet by 0 Active phen-caff (ESGIC) mouth every 6 1 50-325-40 mg per (six) hours as tablet needed for migraine. medical cannabis oil Inhale as needed 0 Active inhalation (pain). Vape THC: 5 mg dose - per pt medical cannabis Take 1-4 capsules by mouth 2 (two) times a day as needed (pain). THC component: 10 mg 0 Active capsule CBD component: 0 mg medical cannabis oil Take 1 each by 0 Active oral mouth as needed (pain). 1 spray as needed. 5 mg THC acetaminophen Take 2 capsules 0 Active (TYLENOL) 500 mg (1,000 mg total) 2 capsule by mouth every 6 (six) hours as needed for pain. Start the day of surgery. cyanocobalamin, Take 1 tablet by 0 Active vitamin B-12, 2,500 mouth daily. 2 mcg lozenge clindamycin (CLEOCIN Apply 1 0 Active T) 1 % external application 2 solution topically 2 (two) times a day. Apply to face. diclofenac sodium Apply 2-4 g 0 Active (VOLTAREN) 1 % gel topically 4 2 (four) times a day as needed. Arnuity Ellipta 100 Inhale 1 puff 0 Active mcg/actuation diskus daily. 2 inhaler oxyCODONE Take 10 mg by 0 Active (ROXICODONE) 10 mg mouth every 4 2 IR tablet (four) hours as needed for pain. rOPINIRole (REQUIP) Take 2 mg by 0 Active 2 mg tablet mouth at bedtime. 2 diphenhydrAMINE Take 75 mg by 0 Active (BENADRYL) 25 mg mouth at bedtime. tablet multivit-min/iron/fo Take 1 tablet by 0 Active [id number] (HAIR, mouth daily. SKIN AND NAILS ADVANCED ORAL) sennosides-docusate Take 1 tablet by 0 Active sodium (SENOKOT-S) mouth 2 (two) 2 8.6-50 mg per tablet times a day. aspirin 325 mg Take 1 tablet 0 A ctive tablet (325 mg total) by 2 mouth every evening. oxyCODONE Take 1 tablet (5 30 tablet 0 Act laol (ROXICODONE) 5 mg mg total) by 2 immediate release mouth every 4 tabletIndications: (four) hours as Acute Pain, Acute needed for severe Pain Exception pain or score 7-10 of 10 Indication: Acute Pain, Acute Pain Exception. traMADoL (ULTRAM) 50 Take 1 tablet (50 24 tablet 0 Active mg mg total) by 2 tabletIndications: mouth every 6 Acute Pain, Acute (six) hours as Pain Exception needed for severe pain or score 7-10 of 10 Indications: Acute Pain, Acute Pain Exception. oxyCODONE Take 1-2 tablets 20 tablet 0 05/18/20 Dis continued (ROXICODONE) 5 mg (5-10 mg total) 2 22 immediate release by mouth every 4 tabletIndications: (four) hours as Acute Pain Exception needed for severe pain or score 7-10 of 10 (for pain not controlled by Tylenol.) Indication: Acute Pain Exception. oxyCODONE Take 1 tablet (5 25 tablet 0 05/18/20 Dis continued (ROXICODONE) 5 mg mg total) by 2 22 immediate release mouth every 4 tabletIndications: (four) hours as Prolonged Acute needed for Pain/Traumatic moderate pain or Injury score 4-6 of 10 or severe pain or score 7-10 of 10 (one tablet moderate pain, two for severe pain. Patient using for breakthrough surgical pain on top of her baseline chronic pain meds.) Indication: Prolonged Acute Pain/Traumatic Injury. 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 03/29/2019 Anxiety Generalized Disorder 03/29/2019 Chronic Pain Syndrome 03/29/2019 Fibromyalgia 03/29/2019 Gastric Bypass Status Post 03/29/2019 Esophageal Motility Disorder 03/29/2019 Sinusitis Recurrent 03/29/2019 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 Fusion Cervical Spine Status Post 03/29/2019 Nicotine Dependence Cigarettes 03/29/2019 Thrombosis Arterial 03/29/2019 Rhinosinusitis Chronic 03/01/2019 Overview: Added automatically from request for lonnie li [id number] Nicotine Dependence Unspecified 11/29/2017 Other Scratcher Current Drug Therapy 12/30/2016 Opioid Moderate Or Severe Use Disorder (Dependence) Un complicated 08/27/2016 Bipolar II Disorder 09/27/2007 Transient Ischemic Attack Encounters Date Type Specialty Care Team Description 06/15/2022 Anesthesia Event Radiology Alfredo Villanueva M.D. 06/15/2022 Ancillary Procedure Radiology Demarcus Ernst Arriv ed Lilian Diaz 06/15/2022 Ancillary Procedure Radiology Demarcus Ernst ed Lilian Diaz 06/15/2022 Emergency Emergency Medicine Scooter Tony APRN, C.N.P. 06/15/2022 Clinical Neurology Robert Diehl Followup (Ra arf Communication Lilian Celaya Patient/) 06/10/2022 Clinical Orthopedic Surgery Cyrus Polk xray re sults Communication Lilian Souza 06/03/2022 Clinical Orthopedic Surgery Cyrus Polk Post-op Problem Communication Lilian Souza 05/19/2022 Clinical Neurology Robert Diehl [facility] pres ription Communication Lilian Celaya 05/18/2022 Surgery Cyrus Polk ARTHROPLASTY Lilian Souza REPLACEMENT TOT AL SHOULDER. 05/18/2022 Anesthesia Event Kaushik Carpenter M.B., Ch.B. 05/18/2022 Ancillary Procedure Radiology 05/18/2022 Hospital Encounter Cyrus Polk Direct Infection Of Left Shoulder In Infectious And Parasitic Diseases Classified Elsewhere (HCC) (Primary Dx); - Lilian Souza Shoulder Joint Disorder Left; 05/20/2022 Pain Shoulder L eft; Primary Osteoar thritis Shoulder Left 05/17/2022 Hospital Encounter Laboratory Medicine Alfredo Herrera reoperative Exam A, O.P.A.-C. 05/17/2022 Office Visit Orthopedic Surgery Cyrus Polk Pain Sh oulder Left; Lilian Souza Preoperative Ex am 05/13/2022 Virtual Visit Social Work [place], Pain Shoulder Left; Jenna Porter M.D. Preoperative Exam Jose Bernstein, DavidGSharita., L.I.C.S.W. 05/12/2022 Clinical Orthopedic Surgery Cyrus Polk Pre-vis it Intake Communication Lilian Souza 05/11/2022 Clinical Orthopedic Surgery Cyrus Polk M.D. 05/07/2022 Clinical Orthopedic Surgery Cyrus Polk Pre-vis it Testing Communication Lilian Souza Orders 05/06/2022 Clinical Orthopedic Surgery Kuashik Portillo Dischar ge Planning Communication R.NBritton (Discharge Ryan nning) 05/03/2022 Comprehensive Visit Anesthesiology CarynShauna Ane vera NIKKY Diaz C.N.P., M.S.N. Peter Tse R.N. 05/03/2022 Hospital Encounter Laboratory Medicine MervinolgaShauna pyle Anemia NIKKY Diaz C.N.P., M.S.N. 04/22/2022 Orders Only Anesthesiology MervinpatrickShauna Anemia (Pr imary Dx) Joe, NIKKY, C.N.P., M.S.N. 04/22/2022 Clinical Orthopedic Surgery Cyrus Polk pre op orders Communication Lilian Souza 04/21/2022 Clinical Orthopedic Surgery Cyrus Polk M.D. 04/14/2022 Hospital Encounter Radiology Alfredo Herrera Painful Total Joint A, O.P.A.-C. Arthroplasty In [facility] ([facility]) 04/14/2022 Hospital Encounter Laboratory Medicine Alfredo Herrera rthroplasty Total Shoulder Replacement Status Post Left; A, O.P.A.-C. Painful Total J oint Arthroplasty Initial ([facility]) 04/14/2022 Procedure visit Orthopedic Surgery Jey Monzonf ul Total Joint Lilian Celaya Arthroplasty In itial ([facility]) 04/02/2022 Office Visit Orthopedic Surgery Cyrus Polk Arthrop lasty Total Shoulder Replacement Status Post Left; Lilian Souza Painful Total J oint Arthroplasty Initial ([facility]) 04/02/2022 Hospital Encounter Radiology Alfredo Herrera Arthropl asty Total A, O.P.A.-C. Shoulder Replac ement Status Post Lef t 04/02/2022 Clinical Orthopedic Surgery Cyrus Polk pre op orders Communication Lilian Souza 03/19/2022 Clinical Orthopedic Cyrus Hastings M.D. 03/16/2022 Clinical Orthopedic Surgery Cyrus Polk M.D. from Last 3 Months Immunizations Name Administration Dates Next Due Influenza, Unspecified 08/28/2006 Family History Relation Name Status Comments Father Endorses history of blood clots in legs in father and on multiple people on father's side, mostly female and unknown cause Mother of pancreat ic cancer Sister from heart valve problem Social History Tobacco Use Types Packs/Day Years Used Date Smoking Tobacco: Every Day Cigarettes 0.3 30 S tarted: 11/28/1977 Smokeless Tobacco: Never Tobacco Cessation: Ready to Quit: Yes Comments: Since teens, used to be 2 [...] or relatives? How often do you attend scientology or Patient refused 2021 mormonism services? Do you belong to any clubs or No 05/17/2022 organizations such as scientology groups, unions, fraternal or athletic groups, or [...] place to sleep or slept in a long term (including now)? Education Answer Date Recorded What is the highest level of school Associate degree: etta polo, 03/24/2021 you have completed or the highest technical, or vocational p narcisaram degree you have received? Sex Assigned at Date Recorded Female 03/01/2019 10:12 AM CDT Last Filed Vital Signs Vital Sign Reading Time Taken Comments Blood Pressure 118/75 06/15/2022 7:00 PM CDT Pulse 63 06/15/2022 7:00 PM CDT Temperature 37 ??C (98.6 ??F) 06/15/2022 6:55 PM CDT Respiratory Rate 18 06/15/2022 6:55 PM CDT Oxygen Saturation 93% 06/15/2022 7:00 PM CDT Inhaled Oxygen Concentration - - Weight 63.5 kg (140 lb) 06/15/2022 11:00 AM CDT Height 151 cm (4' 11.45) 05/18/2022 9:00 AM CDT Body Mass Index 27.85 05/18/2022 9:00 AM CDT Plan of Treatment Health Maintenance Due Date Last Done Comments CT Colonography 1965 Cologuard 1965 Colonoscopy 1965 Colorectal Cancer Screening 1965 FIT 1965 Hepatitis B Vaccines (1 of 3 - 1965 3-dose series) Hepatitis C Screening 1965 Mammogram 1965 Tobacco Cessation counseling 1965 COVID-19 Vaccine (#1) 1965 Depression Screening (Annual 11/28/2021 PHQ-2) Influenza Vaccine (#1) 2022 10/12/2021, 09/13/2020, 08/31/2019, Additional history exists Office Visit for Blood Pressure 12/29/2022 12/29/2021 Check / Re-check Creatinine Level 06/15/2023 06/15/2022, 05/19/2022, 05/17/2022, Additional history exists Potassium Level 06/15/2023 06/15/2022, 05/19/2022, 05/17/2022, Additional history exists Sodium Level 06/15/2023 06/15/2022, 05/19/2022, 05/17/2022, Additional history exists Fasting Glucose for Diabetes 06/15/2025 06/15/2022, 022, Screening 05/17/2022, Additional history exists Fasting Lipid Panel 02/01/2026 02/01/2021, 03/29/2019 DTaP,Tdap,and Td Vaccines (3 - Td 05/23/2027 05/23/2017, , or Tdap) 04/22/2011 Pneumococcal vaccine (0-64 years) 2028 08/31/2019, , (3 - PPSV23 or PCV20) 01/01/2013 Zoster Vaccines Completed 09/11/2021, 09/13/2020 Medical Devices Implanted Type Area Wedding Coordinator Device Shelf Model / Identifier Expiration Serial / Date Lot Cmnt Bn Smp 20gm - [id number] Bone Cement Left: Nato [id number] / Implanted: Qty: 1 on 12/30/2021 by Cyrus Panchal M.D. at [facility] [place] Shoulder / Grft Dbm Grf Obl Ld 15 - [id number] - [id number] Bone or Tis lebron Left: Medtronic 10/14/2023 [id number] / Implanted: Qty: 1 on 02/26/2022 at [facility] [place] Shoulder [id number] / 4mm Amplatz Micro Plug Embolization Brain Amplatzer [id number] / Implanted: Qty: 1 on 02/16/2021 by Mustapha Posey M.D. at [facility] Coil Tool Repairer / Dayo [id number] Description: MRI Conditional at 1.5T or 3T Max Whole Body YUSEF of 4 W/kg. AAC 2020 [email or web address]/ Hardware E.G. Hardware e.g. Neck Pins/Screws/Rods pins/screws/rods Scrw Cmp Pthrd 6.5x25 - [id number] Hardware e.g. Left: Trevor B iomet 12/29 [id number] / Implanted: Qty: 1 on 02/26/2022 at [facility] [place] pins/screws/rods Shoulder 05/17 [id number] Knee Implant Knee Implant Bilateral: Knee Plg Ocl Amp Avpii 6 - [id number] Mesh or Patch Pedersen 07/31 [id number] / Implanted: Qty: 1 on 02/16/2021 by Mustapha Posey M.D. at [facility] [id number] Shoulder Implant Shoulder Implant Left: Shoulder Bsplt Glnd Cmp Rv Aug Sm - [id number] Shoulder Implant Left: Trevor Biomet 01/26 [id number] / Implanted: Qty: 1 on 02/26/2022 at [facility] [place] Shoulder [id number] [facility] Rvrs Prim Mini 9 - [id number] Shoulder Implant Le ft: Trevor Biomet 08/28 [id number] / Implanted: Qty: 1 on 05/18/2022 by Cyrus Panchal M.D. at [facility] [place] Shoulder 02/14 [id number] Medtronic Spinal Cord Stimulator Spinal Cord Back Medtronic [id number] / Implanted: 06/30/2020 (Quantity not on file) Stimulator [id number] / [id number] Description: PT got new spinal cord stim ulator planted . Patient states she fell and the old stimulator broke, so she had the new Medtronic device put in. 1.5T Normal/ Normal, patient has to have a remote and device needs to be put in MRI Mode prior to MRI as of 03-19-21 SDN Explanted Type Area Wedding Coordinator Device Shelf Model / Identifier Expiration Serial / Date Lot [facility] Vrs Dl [id number] - [id number] Shoulder Left: Trevor Biom et 05/29/2031 [id number] / Implanted: Qty: 1 on 12/30/2021 by Cyrus Panchal M.D. at [facility] [place] Implant Shoulder / Explanted: Qty: 1 on 02/26/2022 at [facility] [place] [id number] [facility] Rvrs Prim Std 10 - [id number] Shoulder Left: Zi mmer Biomet 12/16/2029 [id number] / Implanted: Qty: 1 on 02/26/2022 at [facility] [place] Implant Shoulder / Explanted: Qty: 1 on 05/18/2022 at [facility] [place] [id number] Spinal Cord Stimulator Spinal Cord Pelvis Nevro Explanted: 03/10/2020 (Quantity not on file) Stimulator Description: Device was explanted on 02-26 per Nevro Support. SDN 03-19-21 Procedures The patient is currently admitted. The information in this section might not be complete until the patient is discharged. Procedure Name Priority Date/Time Associated Comments Diagnosis CT HEAD NECK RAD - Semiurgent 06/15/2022 4:49 Results for ANGIOGRAM WITH IV (Fast; most ED PM CDT this pro cedure CONTRAST patients; some are in the inpatients) results section. DX LUMBAR SPINE 2-3 RAD - Semiurgent 06/15/2022 3:54 R esults for VIEWS (Fast; most ED PM CDT this procedur e patients; some are in the inpatients) results section. TROPONIN T, 2H/6H, Timed 06/15/2022 2:48 Result s for 5TH GEN, P PM CDT this procedure are in the results section. DX HIP AND PELVIS RAD - Semiurgent 06/15/2022 2:18 Res ults for LEFT 2-3 VIEWS (Fast; most ED PM CDT this proced ure patients; some are in the inpatients) results section. ECG STAT 06/15/2022 1:35 Results for PM CDT this procedure are in the results section. TROPONIN T, BASELINE, STAT 06/15/2022 12:37 Re sults for 5TH GEN, P PM CDT this procedure are in the results section. HEPATIC FUNCTION STAT 06/15/2022 12:37 Results for PANEL, S PM CDT this procedure are in the results section. BASIC METABOLIC STAT 06/15/2022 12:36 Results for PANEL, S/P PM CDT this procedure are in the results section. CBC WITH STAT 06/15/2022 12:36 Results for DIFFERENTIAL, B PM CDT this procedu re are in the results section. PROTHROMBIN TIME STAT 06/15/2022 12:34 Results for (PT), P PM CDT this procedure are in the results section. INTERPRETATION OF RAD - Routine 06/15/2022 12:27 Resul ts for OUTSIDE CT SPINE (most inpatients PM CDT this pr ocedure and all are in the outpatients) results section. INTERPRETATION OF RAD - Routine 06/15/2022 12:26 Resul ts for OUTSIDE CT HEAD (most inpatients PM CDT this pro cedure and all are in the outpatients) results section. OUTSIDE CT NEURO Routine 06/14/2022 1:40 Results for PM CDT this procedure are in the results section. OUTSIDE CT NEURO Routine 06/14/2022 1:35 Results for PM CDT this procedure are in the results section. OUTSIDE DX SKELETAL Routine 06/14/2022 1:30 Resul ts for PM CDT this procedure are in the results section. OUTSIDE DX SKELETAL Routine 06/07/2022 1:30 Resul ts for PM CDT this procedure are in the results section. CBC WITH Routine 05/20/2022 3:43 Results for DIFFERENTIAL, B AM CDT this procedu re are in the results section. CBC WITH Routine 05/19/2022 3:26 Results for DIFFERENTIAL, B AM CDT this procedu re are in the results section. BASIC METABOLIC Routine 05/19/2022 3:26 Results f or PANEL, S/P AM CDT this procedure are in the results section. REMOTE OXIMETRY Routine 05/19/2022 12:29 MONITORING CONT. AM CDT REMOTE OXIMETRY Routine 05/19/2022 12:29 MONITORING CONT. AM CDT REMOTE OXIMETRY Routine 05/19/2022 12:29 MONITORING CONT. AM CDT ADULT OXYGEN THERAPY Routine 05/18/2022 8:01 PM CDT ADULT OXYGEN THERAPY Routine 05/18/2022 4:09 PM CDT ADULT OXYGEN THERAPY Routine 05/18/2022 4:09 PM CDT ADULT OXYGEN THERAPY Routine 05/18/2022 4:09 PM CDT ADULT OXYGEN THERAPY Routine 05/18/2022 2:14 PM CDT DX SHOULDER LEFT 1 RAD - Routine 05/18/2022 2:11 Resul ts for VIEW (most inpatients PM CDT this proced ure and all are in the outpatients) results section. SURGICAL PATHOLOGY, Routine 05/18/2022 1:04 Shoulder Joint Res ults for FROZEN LAB PM CDT Disorder Left this procedure are in the results section. BACTERIA CULT, Routine 05/18/2022 1:03 Results fo r AEROBE/ANAEROBE+SUSC PM CDT this pr ocedure are in the results section. BACTERIA CULT, Routine 05/18/2022 1:03 Results fo r AEROBE/ANAEROBE+SUSC PM CDT this pr ocedure are in the results section. BACTERIA CULT, Routine 05/18/2022 1:03 Results fo r AEROBE/ANAEROBE+SUSC PM CDT this pr ocedure are in the results section. LDA ANE ENDOTRACHEAL Routine 05/18/2022 12:20 Res ults for AIRWAY PM CDT this procedure are in the results section. ARTHROPLASTY 05/18/2022 11:55 Shoulder Joint REPLACEMENT TOTAL AM CDT Disorder Left SHOULDER Case Notes Patient has multiple facial piercings that she is unable to remove ANESTHESIOLOGY IMAGE Routine 05/18/2022 9:35 Resu lts for EXAM AM MST this procedure are in the results section. MC ANE NERVE BLOCK Routine 05/18/2022 11:24 Resul ts for WITH ULTRASOUND AM CDT this procedu re are in the results section. WA US GUIDE PLC NDL Routine 05/18/2022 11:24 Resu lts for AM CDT this procedure are in the results section. WA INJ ANES BRACHIAL Routine 05/18/2022 11:24 Res ults for PLEX AM CDT this procedure are in the results section. ADULT OXYGEN THERAPY Routine 05/18/2022 10:57 AM CDT SPSMA RESULT Routine 05/17/2022 10:50 Results for AM CDT this procedure are in the results section. BASIC METABOLIC Routine 05/17/2022 10:50 Preoperative Exam Res ults for PANEL, S/P AM CDT this procedure are in the results section. TYPE AND SCREEN Routine 05/17/2022 10:50 Preoperative Exam Res ults for AM CDT this procedure are in the results section. CBC WITH Routine 05/17/2022 10:50 Preoperative Exam Result s for DIFFERENTIAL, B AM CDT this procedu re are in the results section. SARS CORONAVIRUS 2, Routine 05/17/2022 10:26 Preoperative Exam Results for MOLECULAR DETECTION, AM CDT this pr ocedure PCR, VARIES are in the results section. REFLEX ANEMIA PANEL Routine 05/03/2022 10:11 Anemia Resu lts for (PREVIOUS CBC) AM CDT this procedur e are in the results section. OUTSIDE MR NEURO Routine 2022 3:35 Results for PM CDT this procedure are in the results section. CT SHOULDER LEFT RAD - Routine 04/14/2022 11:13 Painful Total Resul ts for WITHOUT IV CONTRAST (most inpatients AM CDT Joint Arthroplast y this procedure and all Initial (HCC) are in the outpatients) results section. C-REACTIVE PROTEIN Routine 04/14/2022 10:42 Painful Total Resu lts for (CRP), S/P AM CDT Joint Arthroplasty this proc edure Initial (HCC) are in the results section. CBC WITHOUT Routine 04/14/2022 10:42 Painful Total Results fo r DIFFERENTIAL, B AM CDT Joint Arthroplasty this p rocedure Initial (HCC) are in the results section. CELL COUNT AND Routine 04/14/2022 9:35 Results fo r DIFFERENTIAL, BF AM CDT this proced ure are in the results section. BACTERIA CULT, Routine 04/14/2022 9:35 Results fo r AEROBE/ANAEROBE+SUSC AM CDT this pr ocedure are in the results section. WA ARTHCS ASP/INJ Routine 04/14/2022 9:30 Painful Total Result s for [facility] JT W US AM CDT Joint Arthroplasty this proc edure Initial (HCC) are in the results section. DX SHOULDER LEFT RAD - Routine 04/02/2022 9:32 Arthroplasty Total R esults for INGROWTH SERIES 5 (most inpatients AM CDT Shoulder this p rocedure VIEWS and all Replacement Status are in th e outpatients) Post Left results section. from Last [address] Head Neck Angiogram with IV Contrast (06/15/2022 4:49 PM CDT) Anatomical Region Laterality Modality Head and Neck, Neuroradiology RST LOS, N/A C omputed Tomography, Computed Neuroradiology ARZ [facility], Neuroradiology T omography FLA [facility] Specimen (Source) Anatomical Collection Method Collection Time Re ceived Time Location / / Volume Laterality 06/15/2022 4:41 PM CDT Impressions 06/15/2022 5:56 PM CDT 1. Stable exam since 03/12/2021. 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 No new areas of dissection. 2. Stable small left paraclinoid ICA ane urysms. Narrative 06/15/2022 5:56 PM CDT EXAM: CT HEAD NECK ANGIOGRAM WITH IV CONTRAST Including 3D image post-processing. COMPARISON: 03/12/2021 CT head neck fermin ogram. FINDINGS: No significant change since 03/12/2021. Prior embolization changes of the right vertebral artery with embolization device in the V2 segme nt. Similar retrograde filling of the intradural segment. The right V1 segment and proximal V2 seg ments remain opacified. No new vertebral artery dissection. Stable 5 mm left paraclinoid ICA aneurys m and 2 mm left supraclinoid ICA aneurysm. Minimal atherosclerotic plaque involving the aortic arch. Conventional aortic arch branching. The carotid arteries are patent. No signific ant plaque involving the carotid bulbs. 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 Patent anterior communicating artery and right posterior communicating artery. Hypoplas tic left posterior communicating artery. Hypoplastic frontal sinuses. Mild mucosa l thickening within the ethmoid sinuses. Mucous retention cyst left sphenoid sinus. The mastoid ai r cells are clear. Bilateral pseudophakia. Cervical spine posterior instrumentation hardware. Procedure Note Anne Cottrell M.D. - 06/15/2022F ormatting of this note might be different from the original. EXAM: CT HEAD NECK ANGIOGRAM WITH IV CON TRAST Including 3D image post-processing. COMPARISON: 03/12/2021 CT head neck fermin ogram. FINDINGS: No significant change since 03/12/2021. Prior embolization changes of the right vertebral artery with embolization device in the V2 segme nt. Similar retrograde filling of the intradural segment. The right V1 segment and proximal V2 seg ments remain opacified. No new vertebral artery dissection. Stable 5 mm left paraclinoid ICA aneurys m and 2 mm left supraclinoid ICA aneurysm. Minimal atherosclerotic plaque involving the aortic arch. Conventional aortic arch branching. The carotid arteries are patent. No signific ant plaque involving the carotid bulbs. 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 Patent anterior communicating artery and right posterior communicating artery. Hypoplas tic left posterior communicating artery. Hypoplastic frontal sinuses. Mild mucosa l thickening within the ethmoid sinuses. Mucous retention cyst left sphenoid sinus. The mastoid ai r cells are clear. Bilateral pseudophakia. Cervical spine posterior instrumentation hardware. IMPRESSION: 1. Stable exam since 03/12/2021. Emboliz ation with occlusion of the V2 segment of the right vertebral artery for prior V3-4 dissecti on. No new areas of dissection. 2. Stable small left paraclinoid ICA ane urysms. Scooter Tony APRN, C.N.P. IMG CT PROCEDURES DX Lumbar Spine 2-3 Views (06/15/2022 3:54 PM CDT) Anatomical Region Laterality Modality Lumbar Spine, Musculoskeletal RST LOS, Neuroradiology N/A Digital Radiography ARZ LOS, Muskuloskeletal FLA LOS Specimen (Source) Anatomical Collection Method Collection Time Re ceived Time Location / / Volume Laterality 06/15/2022 4:19 PM CDT Impressions 06/15/2022 4:21 PM CDT Lower lumbar posterior decompression. Advanced multilevel degenerative disc and facet disease. Apparent solid bony fusion L4-S 1 anteriorly. Lumbar spine is hypomobile. No abnormal angular motion with flexion-extension. E pidural stimulator with leads at inferior endplate T7 and inferior endplate T8. Abdominal hernia r epair mesh. Narrative 06/15/2022 4:21 PM CDT EXAM: ??DX LUMBAR SPINE 2-3 VIEWS Procedure Note Dario Dunlap M.D. - 06/15/2022For matting of this note might be different from the original. EXAM: DX LUMBAR SPINE 2-3 VIEWS IMPRESSION: Lower lumbar posterior decompression. Ad vanced multilevel degenerative disc and facet disease. Apparent solid bony fusion L4-S 1 anteriorly. Lumbar spine is hypomobile. No abnormal angular motion with flexion-extension. E pidural stimulator with leads at inferior endplate T7 and inferior endplate T8. Abdominal hernia r epair mesh. Scooter Tony APRN, C.N.P. IMG DIAGNOSTIC IMAGING PROCEDURES Troponin T, 2H/6H, 5th Gen (06/15/2022 2:48 PM CDT) [facility] Method Time Signature Troponin T, 2 <6 <=10 ng/L 06/15/2022 [facility] hr, 5th gen 3:54 PM CDT 2H Delta 0 ng/L 06/15/2022 [facility] 3:54 PM CDT 2H Delta Not Changing 06/15/2022 [facility] Interp 3:54 PM CDT Troponin T, 6 CANCELED ng/L 06/15/2022 [facility] hr, 5th gen 3:54 PM CDT Comment: Result canceled by the ancerick y. Specimen Anatomical Collection Method Collection Time Receive d Time (Source) Location / / Volume Laterality Blood (Blood, 06/15/2022 2:48 PM 06/15/20 3:21 Venous) CDT PM CDT Narrative [facility] - 06/15/2022 3:54 PM CDT Specimen Information: Specimen ID: [id number] Specimen Type: Blood Specimen Collection Start Date: 06/15/20 ??2:48 PM Specimen Received Date: 06/15/2022 ??3:2 1 PM Specimen ID: [id number] Specimen Type: Blood Specimen Collection Start Date: 06/15/20 22 ??3:53 PM Specimen Received Date: 06/15/2022 ??3:5 3 PM Demarcus Ernst M.D. LAB BLOOD TROPONIN Performing Organization Address City/State/ZIP Code Phon e Number [facility] - [address] [place] [address] [phone] [facility] [place] [address] Laboratories-[facility] [address] [facility] DX Hip And Pelvis Left 2-3 Views (06/15/2022 2:18 PM CDT) Anatomical Region Laterality Modality Lower Extremity, Pelvis, Hip, Musculoskeletal RST LOS, Left Digital Radiography Musculoskeletal ARZ LOS, Muskuloskeletal FLA LOS Specimen (Source) Anatomical Collection Method Collection Time Re ceived Time Location / / Volume Laterality 06/15/2022 2:30 PM CDT Impressions 06/15/2022 2:31 PM CDT Osteopenia. Lower lumbar posterior decompression. Associated surgical clips. Left abdominal ventral mesh. Stimulator with leads extending off the superior margin of view. Mild to moderate bilateral hip osteoarthritis. L eft hip chondrocalcinosis. No fracture. Narrative 06/15/2022 2:31 PM CDT EXAM: ??DX HIP AND PELVIS LEFT 2-3 VIEWS Procedure Note Dario Dunlap M.D. - 06/15/2022For matting of this note might be different from the original. EXAM: DX HIP AND PELVIS LEFT 2-3 VIEWS IMPRESSION: Osteopenia. Lower lumbar posterior decom pression. Associated surgical clips. Left abdominal ventral mesh. Stimulator with leads extending off the superior margin of view. Mild to moderate bilateral hip osteoarthritis. L eft hip chondrocalcinosis. No fracture. Scooter Tony APRN, C.N.PBritton IMG DIAGNOSTIC IMAGING PROCEDURES ECG 12 Lead (06/15/2022 1:35 PM CDT) P athologist Signature Ventricular Rate 58 BPM MUSE ECG/Min WA Interval 154 ms MUSE QRSD Interval 102 ms MUSE QT Interval 442 ms MUSE QTC Interval 433 ms MUSE P [place] 48 degrees MUSE R [place] -1 degrees MUSE T Wave [place] 38 degrees MUSE Specimen Anatomical Collection Method Collection Time Receive d Time (Source) Location / / Volume Laterality 06/15/2022 1:35 PM 2 1:56 CDT PM CDT Impressions MUSE - 06/15/2022 1:56 PM CDT Sinus bradycardia Otherwise normal ECG When compared with ECG of 10-FEB-2021 23 :47, No significant change was found Reviewed by SANDRINE Newby Narrative This result has an attachment that is no t available. Procedure Note Evelio Patel M.D., Ph.D. - 06/15/20 22 IMPRESSION: Sinus bradycardia Otherwise normal ECG When compared with ECG of 10-FEB-2021 23 :47, No significant change was found Reviewed by SANDRINE Newby Demarcus Ernst M.D. ECG ORDERABLES Performing Organization Address City/State/ZIP Code Phon e Number MUSE MUSE NA Troponin T, Baseline, 5th gen (06/15/2022 12:37 PM CDT) athologist Signature Troponin T, <6 <=10 ng/L 06/15/[address] [facility] Baseline, 5th 1:37 PM CDT gen Specimen Anatomical Collection Method Collection Time Receive d Time (Source) Location / / Volume Laterality Blood (Blood, 06/15/2022 12:37 06/15/2022 1:03 Venous) PM CDT PM CDT Demarcus Ernst M.D. LAB BLOOD TROPONIN Performing Organization Address City/State/ZIP Code Phon e Number [facility] - [address] [place] [phone] [place] [address] Laboratories-[facility] [address] [facility] (ABNORMAL) Hepatic Function Panel (06/15/2022 12:37 PM CDT) athologist Signature Bilirubin, <0.2 <=1.2 mg/dL 06/15/2022 DTL Total, S 1:44 PM CDT Bilirubin, <0.2 0.0 - 0.3 06/15/2022 DTL Direct, S mg/dL 2:48 PM CDT Comment: The specimen was received hemolyzed. The hemolysis is above accepted threshold for this analyte which may fal sely decrease the result. Please interpret with caution. Aspartate Aminotransferase (AST), S 42 8 - 43 U/L 2:48 PM CDT DTL Comment: The specimen was received hemolyzed. The hemolysis is above accepted threshold for this analyte which may fal sely elevate the result. Please interpret with caution. Alanine Aminotransferase (ALT), 31 7 - 45 U/L 022 1:44 PM CDT DTL S Alkaline Phosphatase, S 116 (H) 35 - 104 U/L 06/15/2022 1: 44 PM CDT DTL Albumin, S 4.0 3.5 - 5.0 g/dL 06/15/2022 1:44 PM CDT D TL Protein, Total, S 6.3 6.3 - 7.9 g/dL 06/15/2022 1:44 P M CDT DTL Specimen Anatomical Collection Method Collection Time Receive d Time (Source) Location / / Volume Laterality Blood (Blood, 06/15/2022 12:37 06/15/2022 1:24 Venous) PM CDT PM CDT Demarcus Ernst M.D. LAB BLOOD ADD-ON Performing Organization Address City/State/ZIP Code Phon e Number [facility] - [address] [place] [phone] [facility] [place] [address] Laboratories-[address] (ABNORMAL) CBC with Differential, Blood (06/15/2022 12:36 PM CDT)Only the most recent of4 resultswithin the time period is included. [facility] gist Method Time Signature Hemoglobin 10.4 (L) 11.6 - 06/15/2022 [facility] 15.0 g/dL 1:06 PM CDT Hematocrit 32.9 (L) 35.5 - 06/15/2022 [facility] 44.9 % 1:06 PM CDT Erythrocytes 3.87 (L) 3.92 - 06/15/2022 [facility] 5.13 1:06 PM CDT x10(12)/L MCV 85.0 78.2 - 06/15/2022 [facility] 97.9 fL 1:06 PM CDT RBC Distrib An accurate 12.2 - 06/15/2022 [facility] Width RDW can not 16.1 % 1:38 PM CDT be determined. Platelet Count 230 157 - 371 06/15/2022 [facility] x10(9)/L 1:06 PM CDT Leukocytes 4.1 3.4 - 9.6 06/15/2022 [facility] x10(9)/L 1:06 PM CDT Neutrophils 2.20 1.56 - 06/15/2022 [facility] 6.45 2:30 PM CDT x10(9)/L Lymphocytes 1.51 0.95 - 06/15/2022 DHPM 3.07 2:30 PM CDT x10(9)/L Monocytes 0.37 0.26 - 06/15/2022 DHPM 0.81 2:30 PM CDT x10(9)/L Eosinophils 0.11 0.03 - 06/15/2022 DHPM 0.48 2:30 PM CDT x10(9)/L Basophils 0.04 0.01 - 06/15/2022 DHPM 0.08 2:30 PM CDT x10(9)/L Specimen Anatomical Collection Method Collection Time Receive d Time (Source) Location / / Volume Laterality Blood (Blood, 06/15/2022 12:36 06/15/2022 1:03 Venous) PM CDT PM CDT Demarcus Ernst M.D. LAB BLOOD ADD-ON Performing Organization Address City/State/ZIP Code Phon e Number [facility] - [address] [place], [place] [address] [address] [place] [address] Basic Metabolic Panel (06/15/2022 12:36 PM CDT)Only the most recent of3 results within the time period is included. P athologist Signature Potassium, P 5.0 3.6 - 5.2 06/15/2022 [facility] mmol/L 1:34 PM CDT Sodium, P 140 135 - 145 06/15/2022 [facility] mmol/L 1:34 PM CDT Chloride, P 106 98 - 107 06/15/2022 [facility] mmol/L 1:34 PM CDT Bicarbonate, P 24 22 - 29 06/15/2022 [facility] mmol/L 1:34 PM CDT Anion Gap, P 10 7 - 15 06/15/2022 [facility] 1:34 PM CDT BUN (Blood Urea 13 6 - 21 06/15/2022 [facility] Nitrogen), P mg/dL 1:34 PM CDT Creatinine, P 0.72 0.59 - 1.04 06/15/2022 [facility] mg/dL 1:34 PM CDT eGFR-Black/Afri >90 >=60 06/15/2022 [facility] can Hungarian mL/min/BSA 1:34 PM CDT Comment: ----ADDITIONAL INFORMATION---- Estimated GFR calculated using the 2009 CKD_EPI creatinine equation. eGFR Non-Black/ >90 >=60 mL/min/BSA 06/15/2022 1:34 PM CDT [facility] Comment: ----ADDITIONAL INFORMATION---- Estimated GFR calculated using the 2009 CKD_EPI creatinine equation. Calcium, Total, P 9.3 8.6 - 10.0 mg/dL 06/15/2022 1:34 PM CDT [facility] Glucose, P 78 70 - 140 mg/dL 06/15/2022 1:34 PM CDT S TMA Specimen Anatomical Collection Method Collection Time Receive d Time (Source) Location / / Volume Laterality Blood (Blood, 06/15/2022 12:36 06/15/2022 1:03 Venous) PM CDT PM CDT Demarcus Ernst M.D. LAB BLOOD ADD-ON Performing Organization Address City/State/ZIP Code Phon e Number [facility] - [address] [place] [address] [phone] [place] [address] Laboratories-[facility] [address] [facility] Prothrombin Time (PT) (06/15/2022 12:34 PM CDT) athologist Signature Prothrombin 10.2 9.4 - 12.5 [facility] Time, P sec 1:10 PM CDT INR 0.9 0.9 - 1.1 06/15/2022 [facility] 1:10 PM CDT Comment: ----ADDITIONAL INFORMATION---- Standard intensity warfarin therapeutic range: 2.0 to 3.0 ?? High intensity warfarin therapeutic rang e: 2.5 to 3.5 Specimen Anatomical Collection Method Collection Time Receive d Time (Source) Location / / Volume Laterality Blood (Blood, 06/15/2022 12:34 06/15/2022 1:03 Venous) PM CDT PM CDT Demarcus Ernst M.D. LAB BLOOD ADD-ON Performing Organization Address City/State/ZIP Code Phon e Number [facility] - [address] [place], [place] [address] [address] [place] [address] Laboratories-[facility] [address] Interpretation of Outside CT Spine (06/15/2022 12:27 PM CDT) Anatomical Region Laterality Modality Spine, Neuroradiology RST LOS, Neuroradiology ARZ LOS, N/A Computed Tomography Neuroradiology FLA LOS, Other Specimen (Source) Anatomical Collection Method Collection Time Re ceived Time Location / / Volume Laterality 06/15/2022 12:34 PM CDT Impressions 06/15/2022 1:25 PM CDT 1. No acute or traumatic intracranial findings. 2. 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 3. No definite acute traumatic findings in the cervical spine; exam quality is limited by streak artifact from instrumented fusion hardwa re and osteopenia. Narrative 06/15/2022 1:25 PM CDT EXAM: ??INTERPRETATION OF OUTSIDE CT HEAD, INTERPRETATION OF OUTSIDE CT SPINE both without intravenous iodinated contrast dated 05/28 COMPARISON: ??2022 outside brain MR I FINDINGS: ?? CT HEAD: No interval intracranial hemorr jon, mass effect, extra-axial fluid collection, hydrocephalus, or CT evidence of acute i nfarct. No definite change since 2022. Chronic infarcts involving the posterior cerebral circula tion in the dorsal parasagittal left occipital lobe (se3/im25) and right cerebellar hemisphe re (se3/im18) and numerous additional scattered chronic lacunar infarcts in both cerebellar liliana spheres, better visualized on the prior MRI exam. No acute fractures. Bilateral ocular lens implant s. Bilateral maxillary antrostomies and partial turbinectomies. Paranasal sinuses and ma stoid air cells are well-aerated. CT CERVICAL SPINE: 7 cervical type verte bral bodies. C2-T3 posterior instrumented fusion; degenerative ankylosis/fusion of C3-C6 a nd partial fusion across C6-C7 and C7- T1. Exam quality is significantly limited by streak artifact from orthopedic hardware and osteopenia. Within these limitations, no definite fracture of the cervical spine. No convincing evidence of traumatic malalignment. No evidence of hardware fa ilure or loosening. Possible abandoned pedicle screw fragment along the posterior aspect of t he right lateral mass of C1. Suspected vascular occlusive devices in the right vertebral artery. Procedure Note Alfredo Kwong M.D., Ph.D. - 2021 EXAM: INTERPRETATION OF OUTSIDE CT HEAD, INTERPRETATION OF OUTSIDE CT SPINE both without intravenous iodinated contrast dated 05/28 COMPARISON: 2022 outside brain MRI FINDINGS: CT HEAD: No interval intracranial hemorr jon, mass effect, extra-axial fluid collection, hydrocephalus, or CT evidence of acute i nfarct. No definite change since 2022. Chronic infarcts involving the posterior cerebral circula tion in the dorsal parasagittal left occipital lobe (se3/im25) and right cerebellar hemisphe re (se3/im18) and numerous additional scattered chronic lacunar infarcts in both cerebellar liliana spheres, better visualized on the prior MRI exam. No acute fractures. Bilateral ocular lens implant s. Bilateral maxillary antrostomies and partial turbinectomies. Paranasal sinuses and ma stoid air cells are well-aerated. CT CERVICAL SPINE: 7 cervical type verte bral bodies. C2-T3 posterior instrumented fusion; degenerative ankylosis/fusion of C3-C6 a nd partial fusion across C6-C7 and C7- T1. Exam quality is significantly limited by streak artifact from orthopedic hardware and osteopenia. Within these limitations, no definite fracture of the cervical spine. No convincing evidence of traumatic malalignment. No evidence of hardware fa ilure or loosening. Possible abandoned pedicle screw fragment along the posterior aspect of t he right lateral mass of C1. Suspected vascular occlusive devices in the right vertebral artery. IMPRESSION: 1. No acute or traumatic intracranial fi ndings. 2. 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 3. No definite acute traumatic findings in the cervical spine; exam quality is limited by streak artifact from instrumented fusion hardwa re and osteopenia. Demarcus WEI CT PROCEDURES Interpretation of Outside CT Head (06/15/2022 12:26 PM CDT) Anatomical Region Laterality Modality Head, Neuroradiology RST LOS, Neuroradiology ARZ LOS, N/A Computed Tomography Neuroradiology FLA LOS, Other Specimen (Source) Anatomical Collection Method Collection Time Re ceived Time Location / / Volume Laterality 06/15/2022 12:34 PM CDT Impressions 06/15/2022 1:25 PM CDT 1. No acute or traumatic intracranial findings. 2. 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 3. No definite acute traumatic findings in the cervical spine; exam quality is limited by streak artifact from instrumented fusion hardwa re and osteopenia. Narrative 06/15/2022 1:25 PM CDT EXAM: ??INTERPRETATION OF OUTSIDE CT HEAD, INTERPRETATION OF OUTSIDE CT SPINE both without intravenous iodinated contrast dated 05/28 COMPARISON: ??2022 outside brain MR I FINDINGS: ?? CT HEAD: No interval intracranial hemorr jon, mass effect, extra-axial fluid collection, hydrocephalus, or CT evidence of acute i nfarct. No definite change since 2022. Chronic infarcts involving the posterior cerebral circula tion in the dorsal parasagittal left occipital lobe (se3/im25) and right cerebellar hemisphe re (se3/im18) and numerous additional scattered chronic lacunar infarcts in both cerebellar liliana spheres, better visualized on the prior MRI exam. No acute fractures. Bilateral ocular lens implant s. Bilateral maxillary antrostomies and partial turbinectomies. Paranasal sinuses and ma stoid air cells are well-aerated. CT CERVICAL SPINE: 7 cervical type verte bral bodies. C2-T3 posterior instrumented fusion; degenerative ankylosis/fusion of C3-C6 a nd partial fusion across C6-C7 and C7- T1. Exam quality is significantly limited by streak artifact from orthopedic hardware and osteopenia. Within these limitations, no definite fracture of the cervical spine. No convincing evidence of traumatic malalignment. No evidence of hardware fa ilure or loosening. Possible abandoned pedicle screw fragment along the posterior aspect of t he right lateral mass of C1. Suspected vascular occlusive devices in the right vertebral artery. Procedure Note Alfredo Kwong M.D., Ph.D. - 2021 EXAM: INTERPRETATION OF OUTSIDE CT HEAD, INTERPRETATION OF OUTSIDE CT SPINE both without intravenous iodinated contrast dated 05/28 COMPARISON: 2022 outside brain MRI FINDINGS: CT HEAD: No interval intracranial hemorr jon, mass effect, extra-axial fluid collection, hydrocephalus, or CT evidence of acute i nfarct. No definite change since 2022. Chronic infarcts involving the posterior cerebral circula tion in the dorsal parasagittal left occipital lobe (se3/im25) and right cerebellar hemisphe re (se3/im18) and numerous additional scattered chronic lacunar infarcts in both cerebellar liliana spheres, better visualized on the prior MRI exam. No acute fractures. Bilateral ocular lens implant s. Bilateral maxillary antrostomies and partial turbinectomies. Paranasal sinuses and ma stoid air cells are well-aerated. CT CERVICAL SPINE: 7 cervical type verte bral bodies. C2-T3 posterior instrumented fusion; degenerative ankylosis/fusion of C3-C6 a nd partial fusion across C6-C7 and C7- T1. Exam quality is significantly limited by streak artifact from orthopedic hardware and osteopenia. Within these limitations, no definite fracture of the cervical spine. No convincing evidence of traumatic malalignment. No evidence of hardware fa ilure or loosening. Possible abandoned pedicle screw fragment along the posterior aspect of t he right lateral mass of C1. Suspected vascular occlusive devices in the right vertebral artery. IMPRESSION: 1. No acute or traumatic intracranial fi ndings. 2. 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 3. No definite acute traumatic findings in the cervical spine; exam quality is limited by streak artifact from instrumented fusion hardwa re and osteopenia. Demarcus NIELSON CT PROCEDURES CT HEAD/BRAIN WO CON-Outside CT Neuro (06/14/2022 1:40 PM CDT)Only the most recent of2 resultswithin the time period is included. Specimen (Source) Anatomical Location Collection Method / Collectio n Time Received Time / Laterality Volume Narrative IIMS - 06/15/2022 8:35 AM CDT This order has been created and auto-finalized to support the import of outside images. If available, original i nterpretation can be found on the Media Tab in Chart Review, in Document V iewer, or as an image in QREADS. If a re-interpretation or overread is re quired please follow defined workflow. ?? Provider Not In System IMG CT PROCEDURES Performing Organization Address City/[facility]/ZIP Code Phon e Number IIMS IIMS NA XR shoulder LT min 2V-Outside Skeletal Xray (06/14/2022 1:30 PM CDT)Only the most recent of2 resultswithin the time period is included. Specimen (Source) Anatomical Location Collection Method / Collectio n Time Received Time / Laterality Volume Narrative [facility]IM[facility] - 06/15/2022 8:30 AM CDT This order has been created and auto-finalized to support the import of outside images. If available, original i nterpretation can be found on the Media Tab in Chart Review, in Document V iewer, or as an image in QREADS. If a re-interpretation or overread is re quired please follow defined workflow. ?? Provider Not In System IMG DIAGNOSTIC IMAGING PROCE DURES Performing Organization Address City/[facility] Code Phon e Number IIMS IIMS NA DX Shoulder Left 1 View (05/18/2022 2:11 [...] purposes. Jenna Zaldivar M.D. IMG DIAGNOSTIC IMAGING PROCE DURES Surgical Pathology, Frozen Lab (05/18/2022 1:04 PM CDT) Component Value Ref Test Analysis Performed At [facility] [place] Method Time Signature 05/20/2022 METH 11:46 AM [...] LAB SURG PATH ORDERABLES Performing Organization Address City/State/ZIP Code Phon e Number [facility] - [address] [place], [place] [address] [facility] [place] [address] [facility] [address] Bacteria Cult, Aerobe / Anaerobe+Susc (05/18/2022 1:03 PM CDT)Only the most recent of4 resultswithin the time period is included. [facility] Method Time Signature Bacteria Cult, No growth 06/01/2022 DTL Aerobe/Anaerob after 14 6:02 PM CDT e+Susc days of incubation. Specimen Anatomical Collection Method Collection Time Receive d Time (Source) Location / / Volume Laterality Shoulder, Left 05/18/2022 1:03 PM 022 5:21 CDT PM CDT Comment: Specimen Source Site: Tissue #[address] [facility] - 06/01/2022 6:02 PM CDT Bacterial Culture: Placed in Bactec aero bic and Bactec anaerobic bottles Cyrus Polk M.D. LAB MICROBIOLOGY - GENERAL O RDERABLES Performing Organization Address City/State/ZIP Code Phon e Number [facility] - [address] [place], [place] [address] [facility] [address] [facility] [address] LDA ANE ENDOTRACHEAL AIRWAY (05/18/2022 12:20 PM CDT) Narrative Ihsan Townsend APRN, CRNA - 05/18/2022 12:20 PM CDT Ihsan Townsend APRN, CRNA ? 05/18/2022 12:51 PM Airway Date/Time: 05/18/2022 12:20 PM Performed by: Ihsan Townsend APRN, CRNA Authorized by: Kaushik Carepnter M.B., C h.B. Patient location during procedure: OR / Procedure Area PROCEDURE DETAILS: Mask difficulty assessment: easy mask Final airway type: video laryngoscope Laryngeal Manipulation: no ?? Final best view of glottic structures - Cormack/Lehane Score: grade 1 ETT location: oral VL device: glide scope [place] scope blade size: 3 Adult tube size: 7 Adult ETT distance at teeth/gum: 22 Oral tube type: standard ETT Cuffed: yes Number of attempt to successful placemen t: 1 Airway confirmation: bilateral breath so unds, positive ETCO2 and bilateral chest rise Other previous techniques attempted: non e PRE PROCEDURE DETAILS: Pre evaluation for airway management: pr ocedure Urgency: elective Preop assessment of probable difficulty: questionable / suspicious difficult airway Preoxygenation: bag valve mask SEDATION / ANESTHESIA Anesthesia method: anesthesia POST PROCEDURE DETAILS: ? Procedure outcome: successful ?? Airway event: no complications Kaushik Y Chavies M.B., Ch.B. ANESTHESIA ORDERABLES [place] INJ ANES BRACHIAL PLEX, [place] US GUIDE PLC NDL, MC ANE NERVE BLOCK WITH ULTRASOUND (05/18/2022 11:24AM CDT) Narrative Jonah Mendez M.D. - 05/18/2022 11:24 AM CDT Jonah Mendez M.D. ? 05/18/2022 12:18 PM Regional Block Date/Time: 05/18/2022 11:24 AM Performed by: Jonah Mendez M.D. Authorized by: Jonah Mendez M.D. Location: Pre Op / PACU PROCEDURE DETAILS: Block Indication: post-op pain block ?? Block indication comment: Post-Op pain b lock at request of surgeon Block Type - Upper extremity: interscale ne Positioning: supine ?? Laterality: left Block technique: ultrasound guided ?? Ultrasound image guidance used to locali ze target, identify at risk structures, and dynamically used to dire ct therapy to the target. Procedure was performed under sterile co nditions.Image(s) acquired and saved Injection technique: single injection Needle type: insulated Gauge: 22G Length: 5 Test dose: yes- negative test dose ?? Incremental injection of local anestheti c with aspiration every:5cc Pain with needle advancement or injectio n of local anesthetic: no ?? Injected Medications: Injection(s), anes thetic agent(s) and/or steroid; See MAR UNIVERSAL PROTOCOL All relevant documentation and testing w ere reviewed and available. All required blood products, implants, devic es and or special equipment were made available as applicable. Pre-proced ure verification was conducted and the correct site was marked if required. A fire risk assessment was done as applicable. The procedural time-out t o verify correct patient, correct side/site, and procedure was conducted p rior to performing the procedure and confirmed in a procedural pause. PRE-PROCEDURE DETAILS: ?? Appropriate hand hygiene, gown, cap, mas k, protective eyewear, sterile gloves, skin preparation, sterile drape, and strict aseptic technique were utilized as applicable for the procedure .: yes ?? Skin prep: povidone / iodine SEDATION / ANESTHESIA Anesthesia method: local infiltration Local infiltrate type: lidocaine POST-PROCEDURE DETAILS: Procedure completed successfully: succes sful procedure Other complications: none Jonah Mendez M.D. PROCEDURE/MINOR SURGICAL ORD ERABLES Non-Radiology Image-Anesthesiology Image Exam (05/18/2022 9:35 AM [facility]) Specimen (Source) Anatomical Collection Method Collection Time Re ceived Time Location / / Volume Laterality 05/18/2022 10:22 AM MST Narrative [facility] - 05/18/2022 9:35 AM [facility] This order has been created and auto-finalized to support the import of images acquired without order. The clini france documentation to support these images can be found on the encounter daneil t produced images. Provider Not In System IMG NON RAD IMAGING PROCEDUR ES Performing Organization Address City/State/ZIP Code Phon e Number [facility] NA (ABNORMAL) SPSMA Result (05/17/2022 10:50 AM CDT) Analysis Performed At Patho logist Time Signature Neutrophilic Segs 51 50 - 75 % 05/17/2022 DHPM and Bands 1:04 PM CDT Lymphocytes 35 18 - 42 % 05/17/2022 DHPM 1:04 PM CDT Monocytes 12 (H) 2 - 11 % 05/17/2022 DH[facility] 1:04 PM CDT Eosinophils 1 1 - 3 % 05/17/2022 DH[facility] 1:04 PM CDT Basophils 1 0 - 2 % 05/17/2022 DH[facility] 1:04 PM CDT Manual Absolute 2.24 1.56 - 05/17/2022 [facility] Neutrophil Count 6.45 1:04 PM CDT x10(9)/L Comment: ----ADDITIONAL INFORMATION---- The manual absolute neutrophil count is derived from a manual differential count and therefore is not exactly comparable to the automated absolute leilani trophil count. Interpretation SeeComment 05/17/2022 1:04 PM CDT D HPM Comment: Hypochromic microcytic red blood cells a re present; consider iron deficiency anemia. Reviewed by: Priti 05/17/2022 1:04 PM CDT DHPM Specimen Anatomical Collection Method Collection Time Receive d Time (Source) Location / / Volume Laterality Blood 05/17/2022 10:50 05/17/2022 AM CDT 11:30 AM CDT Alfredo A Herrera O.P.A.-C. LAB BLOOD ADD-ON Performing Organization Address City/[facility] Phon e Number [facility] - [address] [place], [place] [address] [place] [address] Type and Screen (with reflex Antibody ID) (05/17/2022 10:50 AM CDT) [facility] Method Time Signature ABORh A Neg Not 05/17/2022 ETRM applicable 7:10 PM CDT Antibody Negative Negative 05/17/2022 ETRM Screen 7:22 PM CDT Type & Screen 07/15/2022 05/17/2022 ETRM Expiration 23:59 7:10 PM CDT Testing Ara DEFAULT 05/17/2022 ETRM Location 12:24 PM CDT Specimen Anatomical Collection Method Collection Time Receive d Time (Source) Location / / Volume Laterality Blood (Blood, 05/17/2022 10:50 05/17/2022 Venous) AM CDT 12:24 PM CDT Alfredo Kamara LAB BLOOD BANK TEST ORDERABL ES Performing Organization Address City/[facility] Phon e Number [facility] - [address] [place] [address] [facility] [place] [address] [facility]-[address] SARS Coronavirus 2, Molecular Detection, PCR, Varies Asymptomatic (05/17/2022 10:26 AM CDT) [facility] Method Time Signature COVID-19, Swab, 05/17/2022 DTL PCR, Source Nasopharynx 2:33 PM CDT COVID-19, Undetected Undetected 05/17/2022 DTL PCR, Result 2:33 PM CDT Comment: SARS-CoV-2 RNA absent. This result does not rule out COVID-19 in the patient, as the sensitivity of the test depends o n the timing of the specimen collection and quality of the specimen. Result should be correlated with patient's history and clinical presentat ion. ----ADDITIONAL INFORMATION---- This RT-PCR test using the Health Plotter SARS-Co V-2 Assay ( [employer].) performed on the Health Plotter Two Module System has received Emergency Use Authorization (EUA) by the U.S. Food and Drug Administration, and is modified from the steam crane operator's instructions with a bridging study. Performance characteristics were verifie d by [facility] in a manner consistent with CLIA requirements. Visit the CDC website: https://www.cdc.g ov/coronavirus/ for the most recent guidelines on [facility] virus testing. Fact Sheet for Healthcare Providers: https://www.fda.gov/media/606158/downloa d Fact Sheet for Patients: https://www.fda.gov/media/056572/downloa d Specimen Anatomical Collection Method Collection Time Receive d Time (Source) Location / / Volume Laterality Varies 05/17/2022 10:26 05/17/2022 (Nasopharynx) AM CDT 10:52 AM CDT Alfredo Kamara LAB MICROBIOLOGY - GENERAL O RDERABLES Performing Organization Address City/State/ZIP Code Phon e Number [facility] - [address] [place] [address] [facility] [place] [address] [facility] [address] [facility] (ABNORMAL) Reflex anemia panel (previous CBC) (05/03/2022 10:11 AM CDT) athologist Signature Vitamin B12 300 180 - 914 05/03/2022 DTL Assay, S ng/L 11:37 AM CDT Comment: ----ADDITIONAL INFORMATION---- In patients being evaluated for vitamin B12 deficiency who have intrinsic factor blocking antibodie s (IFBA), false elevations of B12 may occur due to IFBA interference thus potentially obscuring a physiological de ficiency of B12. If observed B12 concentrations are disco rdant with clinical presentation, measurement of methylmalon ic acid (MMA) should be considered. Ferritin, S 8 (L) 11 - 307 mcg/L 05/03/2022 11:47 AM CDT DTL Iron 15 (L) 35 - 145 mcg/dL 05/03/2022 11:12 AM CDT DTL Total Iron Binding Capacity 396 250 - 400 mcg/dL 05/03 11:12 AM CDT DTL Percent Saturation 4 (L) 14 - 50 % 05/03/2022 11:12 AM C DT DTL Folate, S 14.6 >=4.0 mcg/L 05/03/2022 11:37 AM CDT DTL C-Reactive Protein (CRP), S <3.0 <=8.0 mg/L 05/03/2022 11:12 AM CDT DTL Reticulocytes, B 1.31 0.60 - 2.71 % 05/03/2022 11:06 AM CDT DTL Absolute Reticulocyte 48.5 30.4 - 110.9 05/03/2022 11:0 6 AM CDT DTL x10(9)/L Specimen Anatomical Collection Method Collection Time Receive d Time (Source) Location / / Volume Laterality Blood (Blood, 05/03/2022 10:11 05/03/2022 Venous) AM CDT 10:53 AM CDT Narrative [facility] - 05/03/2022 11:47 AM CDT Specimen Information: Specimen ID: [id number] Specimen Type: Blood Specimen Collection Start Date: 10:11 AM Specimen Received Date: 05/03/2022 10:53 AM Specimen ID: [id number] Specimen Type: Blood Specimen Collection Start Date: 10:11 AM Specimen Received Date: 05/03/2022 10:53 AM Specimen ID: [id number] Specimen Type: Blood Specimen Collection Start Date: 10:11 AM Specimen Received Date: 05/03/2022 10:53 AM Specimen ID: [id number] Specimen Type: Blood Specimen Collection Start Date: 10:11 AM Specimen Received Date: 05/03/2022 10:32 AM Specimen ID: [id number] Specimen Type: Blood Specimen Collection Start Date: 10:11 AM Specimen Received Date: 05/03/2022 11:44 AM Shauna Rubin APRN, C.N.P., M.S.N. LAB BLOOD ADD-ON Performing Organization Address City/State/ZIP Code Phon e Number [facility] - [address] [place] [address] [place] [address] [facility] [address] Brain w/o Contrast-Outside MR Neuro (2022 3:35 PM CDT) Specimen (Source) Anatomical Location Collection Method / Collectio n Time Received Time / Laterality Volume Narrative [facility] - 06/15/2022 8:33 AM CDT This order has been created and auto-finalized to support the import of outside images. If available, original i nterpretation can be found on the Media Tab in Chart Review, in Document V iewer, or as an image in QREADS. If a re-interpretation or overread is re quired please follow defined workflow. ?? Provider Not In System IMG MRI PROCEDURES Performing Organization Address City/State/ZIP Code Phon e Number [facility] NA CT Shoulder Left without IV Contrast (04/14/2022 11:13 AM CDT) Anatomical Region Laterality Modality Shoulder, Upper Extremity, Left Computed [place] graphy, Computed Musculoskeletal RST LOS, Musculoskeletal Tomography ARZ LOS, Muskuloskeletal FLA LOS Specimen (Source) Anatomical Collection Method Collection Time Re ceived Time Location / / Volume Laterality 04/14/2022 1:29 PM CDT Impressions 04/14/2022 1:38 PM CDT 1. Anterior and superior dislocation of the humeral component of the reverse TSA. 2. No definite findings of component loo sening. 3. Age-indeterminate fracture/fragmentat ion along the posterior margin of the proximal humerus adjacent to the prosthesis. Narrative 04/14/2022 1:38 PM CDT EXAM: ??CT SHOULDER LEFT WITHOUT IV CONTRAST 3D images were created on an independent workstation as ordered by the treating provider and reviewed by the radiologist to assist in treatment planning. COMPARISON: ??CT of the left shoulder FINDINGS: ??Since the comparison CT, pos toperative changes of left arthroplasty revision to a reverse shoulder arthroplasty. As demonstrated o n the comparison radiographs 04/12/2022 there is superior and anterior dislocation of the humeral tray in relation to the glenosphere. No findings of component loosening. Age-indeterminate f racture or fragmentation along the posterior margin of the proximal humerus adjacent to the prosthe sis (for example see series 7, images 63-69.) Mildly prominent lymph nodes in the left axilla. Old left rib fractures. Small peripheral groundglass opacity in the posterior asp ect of the left lung apex may represent an infectious or inflammatory process. Postoperative del rio ges of the stomach. Remainder normal. Procedure Note Rian Reina M.D. - 04/14/2022Forma tting of this note might be different from the original. EXAM: CT SHOULDER LEFT WITHOUT IV CONTRA ST 3D images were created on an independent workstation as ordered by the treating provider and reviewed by the radiologist to assist in treatment planning. COMPARISON: CT of the left shoulder 01/28 FINDINGS: Since the comparison CT, posto perative changes of left arthroplasty revision to a reverse shoulder arthroplasty. As demonstrated o n the comparison radiographs 04/12/2022 there is superior and anterior dislocation of the humeral tray in relation to the glenosphere. No findings of component loosening. Age-indeterminate f racture or fragmentation along the posterior margin of the proximal humerus adjacent to the prosthe sis (for example see series 7, images 63-69.) Mildly prominent lymph nodes in the left axilla. Old left rib fractures. Small peripheral groundglass opacity in the posterior asp ect of the left lung apex may represent an infectious or inflammatory process. Postoperative del rio ges of the stomach. Remainder normal. IMPRESSION: 1. Anterior and superior dislocation of the humeral component of the reverse TSA. 2. No definite findings of component loo sening. 3. Age-indeterminate fracture/fragmentat ion along the posterior margin of the proximal humerus adjacent to the prosthesis. Alfredo Foote. IMG CT PROCEDURES (ABNORMAL) CBC without Differential (04/14/2022 10:42 AM CDT) [facility] Method Time Signature Hemoglobin 8.6 (L) 11.6 - 04/14/2022 DTL 15.0 g/dL 11:19 AM CDT Hematocrit 27.8 (L) 35.5 - 04/14/2022 DTL 44.9 % 11:19 AM CDT Erythrocytes 3.64 (L) 3.92 - 04/14/2022 DTL 5.13 11:19 AM CDT x10(12)/L MCV 76.4 (L) 78.2 - 04/14/2022 DTL 97.9 fL 11:19 AM CDT RBC Distrib Width 18.1 (H) 12.2 - 04/14/2022 DTL 16.1 % 11:19 AM CDT Platelet Count 298 157 - 371 04/14/2022 DTL x10(9)/L 11:19 AM CDT Leukocytes 4.2 3.4 - 9.6 04/14/2022 DTL x10(9)/L 11:19 AM CDT Specimen Anatomical Collection Method Collection Time Receive d Time (Source) Location / / Volume Laterality Blood (Blood, 04/14/2022 10:42 04/14/2022 Venous) AM CDT 11:04 AM CDT Alfredo Kamara LAB BLOOD ADD-ON Performing Organization Address [facility] Phon e Number [facility] - [address] [place], [place] [address] [place] [address] CRP (C-Reactive Protein) (04/14/2022 10:42 AM CDT) P athologist Signature C-Reactive <3.0 <=8.0 mg/L 04/14/2022 DT Protein (CRP), 11:43 AM CDT S Specimen Anatomical Collection Method Collection Time Receive d Time (Source) Location / / Volume Laterality Blood (Blood, 04/14/2022 10:42 04/14/2022 Venous) AM CDT 11:20 AM CDT Alfredo Kamara LAB BLOOD ADD-ON Performing Organization Address City/[facility] Phon e Number [facility] - [address] [place], [place] [address] [place] [address] Cell Count and Differential, Body Fluid (04/14/2022 9:35 AM CDT) Patholo gist Method Time Signature Fluid Type Right 04/14/2022 DHPM prosthetic 12:25 PM CDT shoulder Gross Slightly 04/14/2022 DHPM Appearance bloody 12:25 PM CDT Total 364 /mcL 04/14/2022 DHPM Nucleated 12:25 PM CDT Cells Comment: ----REFERENCE VALUE---- Synovial: <150 /mcL Peritoneal: <500 /mcL Pleural: <500 /mcL Pericardial: <500 /mcL ----ADDITIONAL INFORMATION---- This test has been modified from the man ufacturer's instructions. Its performance characteri stics were determined by [facility] in a manner co nsistent with CLIA requirements. This test has not bee n cleared or approved by the U.S. Food and Drug Admin istration. Comment Manual count performed. 04/14/2022 12:25 PM CDT DHPM Neutrophils 8 % 04/14/2022 12:55 PM CDT DHPM Comment: ----REFERENCE VALUE---- Synovial: <25% Peritoneal: <25% Pleural: <25% Pericardial: <25% Lymphocytes 44 Synovial <75% % 04/14/2022 12:55 PM DH PM CDT Monocytes/Macrophages 48 Synovial <70% % 04/14/2022 1 2:55 PM DHPM CDT Comment No blasts or 04/14/2022 12:55 PM DHPM malignant cells CDT seen. Reviewed by: Priti 04/14/2022 12:55 PM DHPM CDT Specimen Anatomical Collection Method Collection Time Receive d Time (Source) Location / / Volume Laterality Fluid 04/14/2022 9:35 AM CDT 10:14 AM CDT Alfredo Kamara LAB BODY FLUIDS AND STOOLS O RDERABLES Performing Organization Address City/State/ZIP Code Phon e Number [facility] - [address] [place], [place] [address] [place] [address] [facility] [address] [place] ARTHCS ASP/INJ MJR JT W US (04/14/2022 9:30 AM CDT) Specimen (Source) Anatomical Location Collection Method / Collectio n Time Received Time / Laterality Volume Narrative [facility] - 04/14/2022 9:30 AM CDT Jey Monzon M.D. ? 04/14/2022 10:34 AM Shoulder site - L glenohumeral : aspirat ion only Date/Time: 04/14/2022 9:30 AM Performed by: Jey Monzon M.D. Authorized by: Alfredo Herrera O.P.A.-C . Care team members present 1. Jey Monzon M.D. 2. Carmelo Guo M.D., M.S. 3. Priya Blue, L.A.T., A.T.C. 4. Pete Kaye, L.A.T., A.T.C. PROCEDURE DETAILS Procedure Location shoulder Shoulder site: L glenohumeral Procedure performed: aspiration only Ultrasound image guidance used to locali ze target, identify at risk structures, and dynamically used to dire ct therapy to the target. Image(s) acquired and saved. Procedural Medication The following medications were administe red at the target site(s) Local anesthetic: 2 mL lidocaine (PF) 10 mg/mL (1 %) CONSENT Consent obtained: written UNIVERSAL PROTOCOL All relevant documentation and testing w ere reviewed and available. All required blood products, implants, devic es and or special equipment were made available as applicable. Pre-proced ure verification was conducted and the correct site was marked if required. A fire risk assessment was done as applicable. The procedural time-out w as conducted prior to performing the procedure and confirmed in a procedu ral pause. PRE-PROCEDURE DETAILS Appropriate hand hygiene, gown, cap, mas k, protective eyewear, sterile gloves, skin preparation, sterile drape, and strict aseptic technique were utilized as applicable for the procedure . Site preparation: chlorhexidine/alcohol Alfredo Kamara PROCEDURE/MINOR SURGICAL ORD ERABLES Performing Organization Address City/State/ZIP Code Phon e Number [facility] NA DX Shoulder Left Ingrowth Series 5 Views (04/02/2022 9:32 AM CDT) Anatomical Region Laterality Modality Upper Extremity, Shoulder, Musculoskeletal RST LOS, Left Digital Radiography Musculoskeletal ARZ LOS, Muskuloskeletal FLA LOS Specimen (Source) Anatomical Collection Method Collection Time Re ceived Time Location / / Volume Laterality 04/02/2022 9:35 AM CDT Impressions 04/02/2022 9:36 AM CDT Reverse left TSA. Superior dislocation of the humeral component on the glenoid. No evidence for arthroplasty loosening. Narrative 04/02/2022 9:36 AM CDT EXAM: ??DX SHOULDER LEFT INGROWTH SERIES 5 VIEWS Procedure Note Saeid Nolen M.D. - 04/02/2022Formatt ing of this note might be different from the original. EXAM: DX SHOULDER LEFT INGROWTH SERIES 5 VIEWS IMPRESSION: Reverse left TSA. Superior dislocation o f the humeral component on the glenoid. No evidence for arthroplasty loosening. Alfredo Kamara IMG DIAGNOSTIC IMAGING PROCE DURES from Last 3 Months Insurance Payer Benefit Plan / Subscriber ID Effective Phone Address T ype Group Dates MEDICARE MEDICARE A AND B [id number] 2012-Pre [address] [place] [address] MEDICA MEDICA [id number] 2018-Pres [phone] Medica id HMO ACCESSABILITY ent [address] [address] [place] [address] Advance Directives For more information, please contact: [phone] Latest Code Status on File Code Status Date Activated Date Inactivated Comments Full Code 05/18/2022 4:09 PM 05/20/2022 5:04 PM Full Code: Discussed Full Code 02/26/2022 2:52 PM 02/27/2022 2:24 PM Full Code: Discussed Full Code 12/30/2021 5:12 PM 01/01/2022 7:39 PM Full Code: Discussed Full Code 02/10/2021 11:06 PM 02/17/2021 8:26 PM Full Code: Discussed Full Code 01/31/2021 10:19 PM 02/03/2021 7:30 PM Full Code: Discussed Care Teams Law Librarian Relationship Specialty Start Date End Date Elsewhere, Pcp PCP - General Internal Medicine 12/25/21
--- OUTSIDE RECORDS SUMMARY | 2022-07-06 14:46 | XMS_ITS | Encounter Summary ---
:1965 Author Organization [facility] Address [address] [place] [id number] Care Team Providers Name Role Phone Elsewhere, Pcp Primary Care Provider Unavailable Reason for Visit Reason Comments Scooter prescription Encounter Details Date Type Department Care Team Description 05/19/2022 Clinical Communication Department of Robert Diehl prescription Neurology in [place], [facility] [place], [place] [address] [place] [id number] [place], [place] [phone] (Work) [phone] Social History Tobacco Use Types Packs/Day Years [...] or relatives? How often do you attend christian or Patient refused 2021 jehovah's witness services? Do you belong to any clubs or No 05/17/2022 organizations such as christian groups, unions, fraternal or athletic groups, or [...] place to sleep or slept in a correction (including now)? Education Answer Date Recorded What is the highest level of school Associate degree: [employer], 03/24/2021 you have completed or the highest technical, or vocational p john degree you have received? Sex Assigned at Date Recorded Female 03/01/2019 10:12 AM CDT documented as of this encounter Miscellaneous Notes Telephone Encounter - Asad Friend R.N. - 05/19/2022 1:07 PM CDT I contacted Angie regarding her request for a prescription for a mobility device scooter. She had orthopedic surgery yesterday and is currently still admitted to [facility] until tomorrow. I encouraged her to reach out to her hospital team and ask to see PT/OT so she could be evaluated and they can then offer the next steps on how she may obtain a scooter. Angie expressed understanding of the plan and will request to speak with PT/OT during the duration of her hospital stay. PLAN Disposition/Recommendation: Patient will speak to her hospital team regarding her current needs. Information/Education: patient/caller able to teach back Caller agreeable to plan of care: yes The following references were used: nursing clinical judgement Telephone Encounter - Olivia Pedroza - 05/19/2022 11:51 AM CDT Chief Complaint Reason for Call: Patient calling: Would like a prescription for a scooter. She has falls and is off balance. She leans to her side and is weaker on the right side since her strokes. She had surgery yesterday on her lynsey only has the use of one arm at this time. She feels she needs this scooter for her to be able toget around. She does not want ???controls?? on the side, just the handlebar. She is unsure where this prescription needs to be sent to. Person calling / Relationship: Patient/self Caller was made aware of the two- to four-business day call turnaround time. Date last seen: 11/18/2021 Future appointment: None Dx: Stroke Cerebrovascular Accident Personal History Olivia Pedroza, [employer] 05/19/22 11:51 AM CDT documented in this encounter Plan of Treatment Not on filedocumented as of this encounter Visit Diagnoses Not on filedocumented in this encounter Additional Health Concerns Assessment Noted Time PHQ-9 Depression Total Score: 16 02/11/2021 12:00 AM C DT documented as of this encounter Care Teams Footwear Sales Associate Relationship Specialty Start Date End Date Elsewhere, Pcp PCP - General Internal Medicine 12/25/21 documented as of this encounter
--- OUTSIDE RECORDS SUMMARY | 2022-07-06 14:46 | XMS_ITS | Encounter Summary ---
:1965 Author Organization [facility] Address [address] [place] [address] Care Team Providers Name Role Phone Elsewhere, Pcp Primary Care Provider Unavailable Encounter Details Date Type Department Care Team Description 05/18/2022 Ancillary Procedure Department of Anesthesiology, [place] Social History Tobacco Use Types Packs/Day Years [...] or relatives? How often do you attend nondenominational or Patient refused 2021 temple services? Do you belong to any clubs or No 05/17/2022 organizations such as nondenominational groups, unions, fraternal or athletic groups, or [...] place to sleep or slept in a snf (including now)? Education Answer Date Recorded What is the highest level of school Associate degree: et[employer] pol[employer], 03/24/2021 you have completed or the highest technical, or vocational p john degree you have received? Sex Assigned at Date Recorded Female 03/01/2019 10:12 AM CDT documented as of this encounter Plan of Treatment Not on filedocumented as of this encounter Procedures Procedure Name Priority Date/Time Associated Comments Diagnosis ANESTHESIOLOGY IMAGE Routine 05/18/2022 9:35 AM R esults for this EXAM MST procedure are i n the results section. documented in this encounter Results Non-Radiology Image-Anesthesiology Image Exam (05/18/2022 9:35 AM MST) Specimen (Source) Anatomical Collection Method Collection Time Re ceived Time Location / / Volume Laterality 05/18/2022 10:22 AM MST Narrative [facility] - 05/18/2022 9:35 AM MST This order has been created and auto-finalized to support the import of images acquired without order. The clini france documentation to support these images can be found on the encounter daniel t produced images. Provider Not In System IMG NON RAD IMAGING PROCEDUR ES Performing Organization Address City/State/ZIP Code Phon e Number [facility] NA documented in this encounter Visit Diagnoses Not on filedocumented in this encounter Additional Health Concerns Assessment Noted Time PHQ-9 Depression Total Score: 16 02/11/2021 12:00 AM C DT documented as of this encounter Care Teams Arc Cutter Relationship Specialty Start Date End Date Elsewhere, Pcp PCP - General Internal Medicine 12/25/21 documented as of this encounter
--- OUTSIDE RECORDS SUMMARY | 2022-07-06 14:46 | XMS_ITS | Encounter Summary ---
:1965 Author Organization [facility] Address [address] [place] [address] Care Team Providers Name Role Phone Elsewhere, Pcp Primary Care Provider Unavailable Reason for Visit Reason Comments xray results Encounter Details Date Type Department Care Team Description 06/10/2022 Clinical Communication Department of Cyrus Polk xr ay results Orthopedic Surgery in [place] Souza [place], [place] [address] [place] [address] [address] [place] [phone] Social History Tobacco Use Types Packs/Day Years [...] or relatives? How often do you attend pentecostal or Patient refused 2021 anglican services? Do you belong to any clubs or No 05/17/2022 organizations such as pentecostal groups, unions, fraternal or athletic groups, or [...] place to sleep or slept in a half-way (including now)? Education Answer Date Recorded What is the highest level of school Associate degree: etta polo, 03/24/2021 you have completed or the highest technical, or vocational p john degree you have received? Sex Assigned at Date Recorded Female 03/01/2019 10:12 AM CDT documented as of this encounter Progress Notes Cyrus Polk M.D. - 06/10/2022 1:04 PM CDT She had a fall. I spoke to her on the telephone. She has a crack in her greater tuberosity. The implants in the shoulder are still reduced. She said she fell. I discussed with her the critical importance of complying with postop rehabilitation restrictions. Otherwise, she is going to place herself at i ncreased failure. Based on the fact that she had a reverse at this point and there is just a crack in the tuberosity we did discuss treatment options. We did discuss operative and nonoperative measures. At this point we discussed observing. Told questions or concerns at any time contact the service. Cyrus Polk M.D. CT CT Job ID: [id number] documented in this encounter Miscellaneous Notes Telephone Encounter - Sosa Laughlin - 06/10/2022 11:51 AM CDT Patient is calling for xray results. Xrays from 06/07 are in qreads. Please call patient to discuss. Thank you documented in this encounter Plan of Treatment Not on filedocumented as of this encounter Visit Diagnoses Not on filedocumented in this encounter Additional Health Concerns Assessment Noted Time PHQ-9 Depression Total Score: 16 02/11/2021 12:00 AM C DT documented as of this encounter Care Teams Diet Consultant Relationship Specialty Start Date End Date Elsewhere, Pcp PCP - General Internal Medicine 12/25/21 documented as of this encounter
--- OUTSIDE RECORDS SUMMARY | 2022-07-06 14:46 | XMS_ITS | Encounter Summary ---
:1965 Author Organization [facility] Address [address] [place] [address] Care Team Providers Name Role Phone Elsewhere, Pcp Primary Care Provider Unavailable Encounter Details Date Type Department Care Team Description 05/18/2022 Surgery RST [facility] OR Cyrus Polk, ARTHROPLASTY REPLACEMENT [address] [facility] [place] [address] [address] [facility] [[email or web address]] [phone] [place] [address] Social History Tobacco Use Types Packs/Day Years [...] or relatives? How often do you attend christianity or Patient refused 2021 episcopalian services? Do you belong to any clubs or No 05/17/2022 organizations such as christianity groups, unions, fraternal or athletic groups, or [...] place to sleep or slept in a [place] [facility] [place] facility (including now)? Education Answer Date Recorded What is the highest level of school Associate degree: etta polo, 03/24/2021 you have completed or the highest technical, or vocational p Eteceram degree you have received? Sex Assigned at Date Recorded Female 03/01/2019 10:12 AM CDT documented as of this encounter Last Filed Vital Signs Vital Sign Reading Time Taken Comments Blood Pressure 102/74 05/18/2022 3:00 PM CDT Pulse 66 05/18/2022 3:00 PM CDT Temperature 37.1 ??C (98.8 ??F) 05/18/2022 2:05 PM CDT Respiratory Rate 21 05/18/2022 3:00 PM CDT Oxygen Saturation 97% 05/18/2022 3:00 PM CDT Inhaled Oxygen Concentration - - Weight 66.1 kg (145 lb 11.6 oz) 05/18/2022 9:00 AM CDT Height 151 cm (4' 11.45) 05/18/2022 9:00 AM CDT Body Mass Index 28.99 05/18/2022 9:00 AM CDT documented in this encounter Discharge Summaries Kaushik Cadena M.D. - 05/20/2022 10:22 AM CDT DISCHARGE SUMMARY BRIEF OVERVIEW Hospital: [facility] Discharge Provider: Cyrus Polk M.D. Primary Team: RST Orthopedic Surgery - Jam Primary Care Providers: Elsewhere, Pcp (General) No [...] 05/18/2022 ARTHROPLASTY REPLACEMENT TOTAL SHOULDER. Cyrus Polk M.D.Jenna Zaldivar M.D.Markos, James R, M.D. RST ROEI OR DISCHARGE DISPOSITION [facility] [6] ACTIVE ISSUES REQUIRING FOLLOW UP This document serves as a prescription to continue physical therapy, medications, and labs or x-raysif ordered/required. If you have any questions or concerns about surgery or upcoming appointments, please do not hesitateto contact Dr. Polk's office at [phone] during regular business hours (8am-5pm M-F). For emergencies on the weekend or after hours, you may contact Dr. Polk's service via the [facility] hammer mill operator at [phone]. Details for your 6 week follow-up appointment [...] to: Cyrus Polk MD Dept of Orthopedics [address], [address] None OUTPATIENT FOLLOW UP For appointment details [...] 05/18/2022 ARTHROPLASTY REPLACEMENT TOTAL SHOULDER. Cyrus Polk M.D.Jenna Zaldivar M.D.Kaushik Cadena M.D. [facility] SE[facility] OR Angie Mosquera was taken to [...] mask during therapy session: yes Outcome Measures -[facility] Inpatient Short Form: AM-PAC Basic Mobility (V.2) How much help from [...] 3-5 steps with a railing?: A Little AM-PAC Basic Mobility (V.2) Raw Score: 18 AM-PAC Basic Mobility (V.2) Standardized Score: 41.05 Interpretation: Clinicians answer the AM-PAC Inpatient Short Form based on observed patient [...] - 05/20/2022 7:31 AM CDT SUBJECTIVE Angie Mosquera was examined [...] hour(s)) CBC with Differential, Blood Collection Time: 05/20/ 3:43 AM Result Value Hemoglobin 8.4 (L) [...] 6 am until 6 pm, please page [facility] service at [phone] For urgent matters from 6 pm until 6 am, please page [facility] at [facility] [phone] Jane Nguyen Pharm.D., R.Ph. - 05/19/2022 8:12 [...] hospital are identified at this time. Jane Nguyen, Pharm.D., R.Ph. [phone] Kaushik Cadena M.D. - 05/19/2022 7:34 AM [...] 6 am until 6 pm, please page [facility] service at [phone] For urgent matters from 6 pm until 6 am, please page Ortho [facility] at [facility] [phone] Paco Valentine - 05/18/2022 9:47 AM CDT Encounter: AM Admit Deanna Tradition: No episcopalian affiliation. Ms. Mosquera did not express any spiritual needs at this time. Plan: Will remain available for spiritual care as needed or requested. [facility] [phone] ([facility]). Rodrigo Preston, Mynor, R.Ph. - 05/18/2022 9:17 AM CDT Images [...] Status: Pharmacy Complete Set By: Rodrigo Preston, Mynor, R.Ph. at 05/18/2022 9:16 AM Taking? Last [...] Take 150 mg by mouth every morning. hiaollksif-xbvbkvhggxxri-zokn (ESGIC) 50-325-40 mg per tablet Past Week [...] 1 spray as needed. 5 mg THC multivit-min/iron/folic/rfs240 (HAIR, SKIN AND NAILS ADVANCED ORAL) Past [...] in this encounter Consult Notes Jey Harper P.T., D.P.T. - 05/19/2022 5:35 PM CDT Physical Therapy Inpatient Evaluation/Treatment By co-signing this note, the provider certifies the therapy being provided to this patient is reasonable and necessary for the diagnosis or treatment of this patient. SUBJECTIVE Patient's Name: Angie Mosquera Referring/Attending Provider: Cyrus Polk M.D. Medical Diagnosis: Shoulder Joint Disorder Left [L85.158] Reason for Referral: PT Evaluate and Treat [...] (HCC) ??? Nicotine Dependence Unspecified ??? 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 Direct Infection Of [...] M.D.; Location: [facility] OR ??? BACK SURGERY 1999 lumbar fusion ??? BARIATRIC SURGERY with revision [...] Profile Lives With: Alone Receives Help From: uniform room attendant, Family, Friend(s) ADL Assistance: Required assistance ADL Assistance Comments: Gets help from BOILER FIRE[employer] for her bath/shower 3x/week, and for her meals IADL/Homemaking Assistance: Required assistance IADL/Homemaking Assistance Comments: Gets help for housecleaning Driving: Does not drive Driving Comments: takes her cane and medical alert with her. Occupational Role: On disability Occupational Role Comments: Previously worked at a [employer] Prior Mobility/Functional Transfers Level of Ashley: Needs assistance Previous Transfer/Mobility Assistance Comments: Patient [...] mask during therapy session: yes Outcome Measures [facility] Inpatient Short Form: -[facility] Basic Mobility (V.2) How much help from [...] 3-5 steps with a railing?: A Little -[facility] Basic Mobility (V.2) Raw Score: 18 -[facility] Basic Mobility (V.2) Standardized Score: 41.05 Interpretation: Clinicians answer the [facility] Inpatient Short Form based on observed patient [...] Nurse Referral Reason: Discharge Planning Primary Language: Comoran Manager Control Services Used: No Person(s) present during interview: Person(s) Present During Interview: patient History of Present Illness #1 Primary Osteoarthritis Shoulder Left Social History Support System: children, director case management/social sciences instructor, friends/neighbors and home care staff Patient's Home [...] Calm, Oriented Communication: Talks, Understands speaking, Understands Comoran Shopping: Needs assistance Transportation: Support from family Medication Management: Needs assistance Housekeeping: Needs assistance Meal Prep: Needs assistance Managing Finances: Independent Assistive Devices: Grab bars - wall, Eyeglasses Services/Resources: Other (comment) Agency Name: [facility] Services Provided: BOILER FI[employer] services 3x/week, nurse visits every other week Baseline Services/Resources Primary care clinic and provider: [facility] Phone: Fax: Anticipated Needs Functional Status: Transfer to/from bed, chair, etc., Bathing, Dressing, Grooming/hygeine, Housekeeping, Shopping, Meal preparation, Mobility, Medication set-up/administration, Transportation use (drive car, use taxi/bus) Services/Resources: Other (comment) Agency Name: [facility] Services Provided: BOILER FIREMAN services 3x/week, nurse visits every other week Transportation Needs: Support from family Does the patient need discharge transport arranged?: No Ride and Caregiver Arranged: Yes Anticipated Discharge Destination: [place] [facility] [place]ESS[place] / PLAN Assessment: The chairman president and chief executive officer met with Angie Mosquera to discuss her current hospitalization and home goingneeds. The patient was unaccompanied. The patient was a reliable historian. The role of chairman president and chief executive officer was reviewed. The patient reviewed her prior level of care and support system. The patient receives support from her son, friends and home care staff. Patient reported her son lives in the same apartment as her. She also stated getting BOILER FI[employer] services 3x/week and a nurse visits her every other week. The patient described her living environment as a two bedroom apartment. Housekeeping, grocery shopping, meal prep, and other household responsibilities have previously been completed by patient, patient's son and patient's caregiver(s). chairman president and chief executive officer discussed the patient's potential needs at [facility] based on their home setting, previous needs and responsibilities, homebound status, and relevantassessments with the patient. The patient will be safe and supported to return home with [facility] or previous services noted above when medically ready. Support will be provided by son, friends and home care staff. The patient demonstrated understanding when discussing her home going plans and anticipated needs. At this time, the care team anticipates the patient requires the following service(s) to be reconnected: home healthcare. The patient identified the following as their current vendor(s): [facility]. During this visit patient verbalized she is hoping to increase her BOILER [employer] hours and also inq uired about getting a scooter to assist in her mobility. Patient went on to share she is unstable attimes due to her stroke history. She thought perhaps her neurology doctor would be able to help her get a scooter. RADHA DONAHUE recommended she follow up with the [facility] in regards to wanting more BOILER FIREMAN hours. She was also recommended to follow up with her primary care provider to provide durable medical equipment justification for a scooter, as she is currently hospitalized for orthopedic surgery. Patient verbalized understanding. Patient informed RADHA DONAHUE would be reconnecting her BOILER FIREMAN services and nurse visits with [facility]. Patient agreeable to RN CM completing this and even provided RN CM the name and contact of her BOILER FIREMAN and RN. After reviewing the patient's chart and meeting with the patient, the chairman president and chief executive officer deemed the LACE+/readmission questions were not necessary. The patient reports understanding that she will dismiss from the hospital when medically stable. Pending hospital course and medical readiness, no barriers to dismissal have been identified at this time. Plan: Patient to discharge with home health care. [facility] Contact: RADHA Palomino ATTN: Georgette NURSING: - [...] directive. PRIMARY SERVICE: - Please provide a non-[place] home health order for resumption of previous [...] dismissal will be provided by family. 3. chairman president and chief executive officer recommended reaching out to family, friends, and neighbors for assistance. 4. chairman president and chief executive officer provided information regarding the dismissal process. 5. chairman president and chief executive officer placed or requested the following hospital-based consult orders and/or referrals:None. 6. chairman president and chief executive officer will continue to assess for homegoing needs with the interdisciplinary team. 7. chairman president and chief executive officer encouraged the patient to reach out [...] falls. Patient will discharge to home with [facility] reconnect. Identify possible barriers to meeting goals/advancing plan of care: none End of Shift Summary: Patient stayed on schedule with prn pain meds (Tramadol and oxycodone) throughout the shift. Encouraged using ice packs to help with pain and swelling. Patient's primapore dressing was changed to Aquacell [employer] and is clean, dry and intact. 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 Patient expects RN from [facility] to visit on Tuesday, May 24. Patient's friend will transport home. Medications including: oxycodone and tramadol were picked up [facility]. documented in this encounter OR Notes Op Note - Cyrus Polk M.D. - 05/18/2022 5:54 PM CDT STAFF: Cyrus Polk M.D. RESIDENT: Jenna Zaldivar M.D. PRE-OPERATIVE DIAGNOSIS Left dislocated reverse arthroplasty. POST-OPERATIVE DIAGNOSIS Left dislocated reverse arthroplasty. A first aid nurse actively participated and was necessary for one [...] glenosphere, placement new humeral stem and tray, [id number] Cyrus Polk M.D. CT CT Job ID: [id number] documented in this encounter Miscellaneous Notes Hospital Course - Kaushik Cadena M.D. - 05/19/2022 12:18 PM CDT Surgery Information This Encounter Past Procedures (05/19/2021 to Today) Date Procedures Providers Location 05/18/2022 ARTHROPLASTY REPLACEMENT TOTAL SHOULDER. Cyrus Polk M.D.Wasserburger, Jory N, M.D.Markos, James R, M.D. [facility] OR Angie Mosquera was taken to the [...] with Differential, Blood (05/20/2022 3:43 AM CDT) [facility] Time Signature Hemoglobin 8.4 (L) 11.6 - [...] Organization Address City/State/ZIP Code Phon e Number [facility] - [address] [place], [place] [address] [facility] [place] [address] [facility] [address] (ABNORMAL) CBC with Differential, Blood (05/19/2022 3:26 AM CDT) [facility] gist Method Time Signature Hemoglobin 7.6 (L) 11.6 [...] Organization Address City/State/ZIP Code Phon e Number [facility] - [address] [place], [place] [address] [facility] [place] [address] [facility] 200 [facility] (ABNORMAL) Basic Metabolic Panel (05/19/2022 3:26 [...] 05/19/2022 DTL Black/ mL/min/BSA 4:38 AM CDT Citizen [place] Comment: ----ADDITIONAL INFORMATION---- Estimated GFR calculated using [...] Organization Address City/State/ZIP Code Phon e Number [facility] - [address] [place], [place] [address] [facility] [place] [address] [facility] [address] DX Shoulder Left [...] Negative for postoperative purposes. Jenna Zaldivar M.D. IM DIAGNOSTIC IMAGING MERGED WITH [facility] Surgical Pathology, Frozen Lab (05/18/2022 1:04 PM CDT) Component Value Ref Test Analysis Performed At [facility] Method Time Signature 05/20/2022 METH [...] LAB SURG PATH ORDERABLES Performing Organization Address City/[facility] Phon e Number [facility] - [address] [place], [place] [address] [facility] [place] [address] [facility] [address] [facility] Bacteria Cult, Aerobe / Anaerobe+Susc (05/18/2022 1:03 PM CDT) [facility] Method Time Signature Bacteria Cult, No growth 06/01/2022 DTL Aerobe/Anaerob after 14 6:02 PM CDT e+Susc days of incubation. Specimen Anatomical Collection Method Collection Time Receive d Time (Source) Location / / Volume Laterality Shoulder, Left 05/18/2022 1:03 PM 022 5:21 CDT PM CDT Comment: Specimen Source Site: Tissue #1 Narrative [facility] - 06/01/2022 6:02 PM CDT Bacterial Culture: Placed in Bactec aero bic and Bactec anaerobic bottles Cyrus Polk M.D. LAB MICROBIOLOGY - GENERAL O RDERABLES Performing Organization Address City/[facility]/ZIP Code Phon e Number [facility] - [address] [place], [place] [address] [facility] [place], [place] [id number] [place] [address] 200 [facility] Bacteria Cult, Aerobe / Anaerobe+Susc (05/18/2022 1:03 PM CDT) [facility] Method Time Signature Bacteria Cult, No growth 06/01/2022 DTL Aerobe/Anaerob after 14 6:02 PM CDT e+Susc days of incubation. Specimen Anatomical Collection Method Collection Time Receive d Time (Source) Location / / Volume Laterality Shoulder, Left 05/18/2022 1:03 PM 022 5:12 CDT PM CDT Comment: Specimen Source Site: Tissue #3 Narrative [facility] - 06/01/2022 6:02 PM CDT Bacterial Culture: Placed in Bactec aero bic and Bactec anaerobic bottles Cyrus Polk M.D. LAB MICROBIOLOGY - GENERAL O RDERABLES Performing Organization Address City/[facility]/ZIP Code Phon e Number [facility] [address] [place], [place] [address] [place] [address] Bacteria Cult, Aerobe / Anaerobe+Susc (05/18/2022 1:03 PM CDT) [facility] Method Time Signature Bacteria Cult, No growth 06/01/2022 DT Aerobe/Anaerob after 14 6:02 PM CDT e+Susc days of incubation. Specimen Anatomical Collection Method Collection Time Receive d Time (Source) Location / / Volume Laterality Shoulder, Left 05/18/2022 1:03 PM 022 5:07 CDT PM CDT Comment: Specimen Source Site: Tissue #2 Narrative [facility] - 06/01/2022 6:02 PM CDT Bacterial Culture: Placed in Bactec aero bic and Bactec anaerobic bottles Cyurs Polk M.D. 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 Classified Elsewhere (HCC) Shoulder Joint Disorder Left documented in this encounter Administered Medications Inactive [...] (TYLENOL) 1738 (Given - Provider: Corrie Toscano RBetsy)2339 (Given - Provider: Catalina Mccloud RBrittonN.) 0511 (Given - Provider: Catalina Mccloud RBrittonN.)1153 (Given - Provider: Isaura Vu RBrittonN.)1725 (Given - Provider: Carole Thorne.S.N., R.N., O.C.N.) 0125 (Given - Provider: Jonny PérezS.N., R.N.)0552 (Given - Provider: Jere Levy RBrittonN.)1206 (Given - Provider: Kennedi Jensen RBrittonNBritton) 1,000 mg, oral, Every 6 hours, First dose on Tue05/18/22 at 1815 acetaminophen tablet 1,000 mg (TYLENOL) (COMPLETED) 11 12 (Given - Provider: Cristy Rosario R.N.) 1,000 mg, oral, Once, On Tue05/18/22 at 1100, For 1 dose, Pre-Op albuterol 90 mcg/actuation inhaler 2 puff (COMPLETED) 1129 (Given - Provider: Christiano AlbarranBrittonNBritton) 2 puff, inhalation, Once, On Tue05/18/22 at 1115, For 1 dose, Pr e-Op aspirin tablet 325 mg 1206 (Give n - Provider: Kennedi Jensen R.N.) 325 mg, oral, Every evening, First dose on Tue05/20/22 at 1030 atorvastatin tablet 80 mg (LIPITOR) 2050 (Given - Prov ider: Bettie Macias R.N.) 2226 (Given - Provider: Jonny ThorneSBetsy, R. N., O.C.N.) 80 mg, oral, Daily [...] dose., Drug Monitoring Program: Pharmacist to a [facility] medication dosing based on indicat ion and drug clearance factors., Indications: Prophylaxis, surgical ceFAZolin injection 2,000 mg (ANCEF) (COMPLETED) 1240 (Given - Provider: Ihsan Townsend APRN, MISSION ASSESSMENT SPECIALIST) 2,000 mg (rounded from 1,652.5 mg = [...] Vu R.N.)1725 (Not Given - Provider: Jonny ThorneSBrittonN., R.N., O.C.N. - Reason: Contraindicated - Comment: [...] IV. lactated Ringer's bolus 500 mL (COMPLETED) 2340 (Bolus from Bag - Provider: Catalina Mccloud R.N.) 500 mL, intravenous, at 500 mL/hr, Admin ister over 1 Hours, Once, On Tue05/18/22 at 2345, For 1 dose lamoTRIgine tablet 200 mg (LaMICtaL) 2051 (Given - Pro vider: Bettie Macias R.N.) 0848 (Given - Provider: Isaura Vu R.N.)2225 (Given - Provider: Candace Lanza, M.S.N., R.N., O.C.N. - Comment: pt request) 0909 (Given - Provider: Isaura Vu R.N.) 200 mg, oral, 2 times daily, First dose on Tue05/18/22 at 2100 magnesium oxide tablet 200 mg (MAG-OX) 0 612 (Given - Provider: Catalina Mccloud R.N.) 0552 (Given - Provider: Jere collado R.N.) 200 mg, oral, Daily before breakfast, Fi [...] R.N.) 0643 (Given - Provider: Jere collado R.N.) 40 mg, oral, 2 times daily before [...] at 2100 pregabalin capsule 600 mg (LYRICA) 08 (Given - Provider: Isaura Vu R.N.)2223 (Given - Provider: Leticia Thorne, R.N., O.C.N. - Comment: pt request) 09 (Given - Provider: Isaura Vu R.N.) 600 [...] - Provider: Pravin De La Rosa R.N.) 2224 (Given - Provider: Jonny ThorneSBrittonN., R.N., O.C.N. - Comment: pt request) 2 mg, oral, Daily at bedtime, First dose on Tue05/18/22 at 2100 sennosides-docusate sodium 8.6-50 mg per tablet 1 tabl et (SENOKOT-S) 2051 (Given - Provider: Bettie Macias R.N.) 08 (Given - Provider: Isaura Vu R.N.)2224 (Given - Provider: Jonny ThorneSBrittonNBritton, R.N., O.C.N. - Comment: pt request) 0908 (Given - Provider: Isaura Vu R.N.) 1 tablet, oral, 2 times daily, First dos e on Tue05/18/22 at 2100, Do not give if patient has diarrhea. tranexamic acid in NaCl IVPB 1,000 mg (CYKLOKAPRON) (C OMPLETED) 1240 (Given - Provider: Ihsan Townsend APRN, MISSION ASSESSMENT SPECIALIST) 1,000 mg (1 g), intravenous, at 300 [...] Provider: Isaura Vu R.N.)2224 (Given - Provider: Leticia Thorne, R.N., O.C.N. - Comment: pt request) 0907 (Given - Provider: Isaura Vu R.N.) 300 mg, oral, 2 times daily, First dose on Tue05/18/22 at 2100, Swallow whole. Do NOT crush, chew or open capsule. Continuous Medication Order 05/18/2022 05/19/2022 05/20/2022 lactated ringers 1622 (Continued from OR - Provider: Corrie hui R.N.) 75 mL/hr, intravenous, Continuous, Start ing on [...] lozenge (CEPACOL) 0510 (Given - Provider: Catalina Mccloud, R.N.)1015 (Given - Provider: Isaura Vu R.N.) 1 lozenge, oral, As needed, sore throat, Starting on Tue05/18/22 at 1608 benzonatate capsule 100 mg (TESSALON PERLES) 0501 (Given - Provider: Catalina Mccloud, R.N.)2232 (Given - Provider: Candace Lanza, M.S.N., R.N., O.C.N.) 100 mg, oral, 3 times [...] (TUMS) 1015 (Given - Provider: Isaura Vu RRebekah.)195 (Given - Provider: Melissa Garcia RBrittonN.)224 (Given - Provider: Candace Lanza, M.S.N., R.N., O.C.N.) 400 mg of calcium, oral, Every 2 hour MS N, indigestion, Starting on Tue05/18/22 at 1608, Doses listed are in mg of elemental calcium. Take with food. 500 mg calcium carbonate contains 200 mg of elemental calcium. carboxymethylcellulose 0.5 % ophthalmic solution 2 drop (REFRESH PLUS) 2 drop, both eyes, 4 times daily PRN, dry eyes, Starti ng on Tue05/18/22 at 1608 dexAMETHasone injection 4 mg (DECADRON) 1508 (Canceled Entry - Provider: Isuara Vu, R.NBritton) 4 mg, intravenous, Once as [...] (BENADRYL) 1738 (Given - Provider: Corrie Toscano RBrittonNBritton) 0504 (Given - Provider: Catalina Mccloud RBrittonNBritton) 092 1 (Given - Provider: Isaura Vu R.NBritton) 25 mg, oral, Every 6 hours PRN, [...] Provider: Eve Smith RBrittonN.)1423 (Given - Provider: Eve Smith, R.N.)1430 (Given - Provider: Eve Smith R.N.)1437 (Given - Provider: Eve Smith R.N.) 25 mcg, intravenous, Every 2 min PRN, [...] ED) 1450 (Given - Provider: Viktoriya Land RRebekah.)1506 (Given - Provider: Viktoriya Land R.N.)1516 (Given - Provider: Viktoriya Land R.N.) 0.2 mg, intravenous, Every 5 min PRN, mo derate pain or score 4-6 of 10, severe pain or score 7-10 of 10, Starting on Tue05/18/22 at 1414, PACU (only), Up to maximum total dose of 2 mg HYDROmorphone (PF) injection 0.2 mg (DILAUDID) 2241 (Given - Provider: Candace Lanza, M.S.N., R.N., O.C.N.) 0.2 mg, intravenous, Every 2 hour PRN, s evere pain or score 7-10 of 10, Starting on Tue05/18/22 at 2303 lactated ringers (COMPLETED) 1120 (New Bag - Provider: Cristy Roetzler Marlene, R.N.) 20 mL/hr, intravenous, Once as needed, t o keep vein open, Starting on Tue05/18/22 at 1055, For 1 dose, Pre-Op midazolam (PF) injection 1 mg (VERSED) (CANCELED) 1119 (Given - Provider: Cristy Rosario R.N.) 1 mg, intravenous, Every 2 min PRN, [...] (ZOFRAN) 2123 (Given - Provider: Jere Levy RBetsy) 1502 (Given - Provider: Kiana Ramírez RBetsy) 4 mg, intravenous, Every 6 hours PRN, [...] (CANCELED) 1738 (Given - Provider: Corrie Toscano R.N.)2339 (Given - Provider: Catalina Mccloud RBrittonN.) 0339 (Given - Provider: Catalina Mccloud R.N.)0742 (Given - Provider: Catalina Mccloud R.N.)1153 (Given [...] IR tablet 10 mg (ROXICODONE)(Linked Group 1) 1599 (Given - Provider: Isaura Vu R.N.)2004 (See Alternative - Provider: Melissa Garcia R.N.) 0124 (See Alternative - Provider: Carole Pérez.S.NBritton, R.N.)0552 (See Alternative - Provider: Jere Levy R.N.)1004 (See Alternative - Provider: Isaura Vu R.N.)1406 (See Alternative - Provider: Isaura Vu R.N.) 10 mg, oral, Every 4 hours PRN, moderate pain or score 4-6 of 10, Starting on Tue05/19/22 at 1344, If patient is >75 consider changing to 2.5-5mg scale oxyCODONE IR tablet 15 mg (ROXICODONE)(Linked Group 1) 1599 (See Alternative - Provider: Isaura Vu R.N.)2004 (Given - Provider: Melissa Garcia R.N.) 0124 (Given - Provider: Carole Pérez.S.NBritton, R.N.)0552 (Given - Provider: Jere T Levy, R.N.)1004 (Given - Provider: Isaura Vu R.N. - Comment: per pt)1406 (Given - Provider: Isaura Vu R.Milad) 15 mg, oral, Every 4 hours PRN, [...] over 3 days 1 patch (TRANSDERM S DOCUMENT ANALYST) (CANCELED) 1118 (Medication Applied - Provider: Cristy Rosario R.N.) 1459 (Due: Medication Removed - Provider: Discharge [...] Provider: Catalina lerma R.N.)1209 (Given - Provider: Isaura Vu R.N.) 0124 (Given - Provider: Jonny PérezS.NBritton, R.N.)0732 (Given - Provider: Isaura Vu R.N.)1359 (Given - Provider: Isaura Vu R.N.) 100 mg, oral, Every 6 hours PRN, severe pain or score 7-10 of 10, Starting on Tue05/18/22 at 1608, First line therapy or for pain greater than comfort goal (not to exceed 400 mg in 24 hours). traMADoL tablet 50 mg (ULTRAM)(Linked Group 2) 2050 (G iven - Provider: Bettie Macias R.N.) 0612 (See Alternative - Provider: Sal Mccloud RBrittonNBritton)1209 (See Alternative - Provider: Isarua Vu R.N.) 0124 (See Alternative - Provider: Rafal Waller M.S.NBritton, R.N.)0732 (See Alternative - Provider: Isaura Vu [...] documented as of this encounter Care Teams Tipple Worker Relationship Specialty Start Date End Date Elsewhere, Pcp PCP - General Internal Medicine 12/25/21 documented as of this encounter
--- OUTSIDE RECORDS SUMMARY | 2022-07-06 14:46 | XMS_ITS | Encounter Summary ---
:1965 Author Organization [facility] Address [address] [place] [address] Care Team Providers Name Role Phone Elsewhere, Pcp Primary Care Provider Unavailable Encounter Details Date Type Department Care Team Description 05/18/2022 Anesthesia Event RST SEBAS MORAN OR Kaushik Carpenter, [address] [facility] [address] [place] [address] [address] [facility] [phone] [place] [id number] (Wo rk) Anesthesia Record Procedure Summary Procedure Name Responsible Anesthesia Start Anesthesia Stop Anesthesiologist Time Time ARTHROPLASTY Kaushik Carpenter MDanielle, 05/18/22 1214 05/18/22 1415 REPLACEMENT TOTAL Ch.B. SHOULDER. (Left: Shoulder) Events Date Time Event Comment 05/18/2022 1122 Block Start Documented by nu rsing staff 1124 Block End Documented by nu rsing staff 1214 An Start Machine/Equipmen t Checked Infection Precautions Foll owed Procedure/Site Verified NPO Sta tus Verified Supine Standard ASA Mon itors Applied 1218 An Induction 1220 An Intubation 1222 Turnover to Proceduralist 1253 Proc Start 1352 Airway Removal Criteria Met 1352 Extubation/Airway Removed 1355 Proc Fin 1356 Turnover to ANE Staff 1356 an stop data 1415 An End I completed my h andoff to the receiving staff during [facility] we 1. Identified the patient 2. Ident ified the responsible provider 3. Revi ewed the pertinent medical history 4. Discussed the surgical course 5. Review ed intra-op anesthesia management and i ssues during anesthesia 6. Set expectati ons for post-procedure period 7. Allowe d opportunity for questions and ac knowledgement of understanding. Name Total bupivacaine-EPINEPHrine PF 0.5%-1:200,000 injection 15 mL fentanyl injection 50 mcg/mL 100 mcg lidocaine 2% (mg) injection 60 mg propofol 10 mg/mL 140 mg propofol 10 mg/mL infusion 680.83 mg succinylcholine 20 mg/mL injection 80 mg ePHEDrine PF 5 mg/mL syringe injection 10 mg ondansetron 4 mg/2 mL injection 4 mg ceFAZolin injection 2,000 mg (ANCEF) 2 g tranexamic acid in NaCl IVPB 1,000 mg (CYKLOKAPRON) 1 g dexamethasone 4 mg/mL injection 8 mg propofol bolus from bag 40 mg rocuronium 10 mg/mL injection 30 mg sugammadex 100 mg/mL injection 150 mg Lactated Ringers Free Drip 800 mL Agents No agents on file. Blood No blood administrations on file. Lines, Drains, and Airways Type Details Placement Removal Wound 05/18/22; 1258; N; 05/18/22 1258 by Incision; Shoulder; Rishi Murillo R.N. Anterior, Left Wound 02/26/22; Incision; 02/26/22 0000 by 05/18/22 12 58 by Shoulder; Anterior, Left; Rishi Murillo R.N. Rishi Murillo, R.N. 05/18/22; 1258 Peripheral IV Placement Date: 05/18/22; 05/18/22 0926 by 05/19 1500 by Ion, Placement Time: 09; Anita Ellis V. Catheter Size: 20 G; Orientation: Anterior, Lower, Right; Location: Forearm; Site Prep: Chlorhexidine (Preferred); Technique: Anatomical landmarks; Inserted by: JESE; Insertion Attempts: 1; Removal Date: 05/19/22; Removal Time: 1500 (pt states the IV blew and was taken out); Removal Reason: No longer in place (no longer in place on assessment) ETT Placement Date: 05/18/22; 05/18/22 1220 by Cary , 05/18/22 1352 by Placement Time: 1220 Ihsan Patel APRN, MENTAL HEALTH UNIT LEAD PSYCHOLOGIST Ihsan Townsend APRN, (created via procedure MENTAL HEALTH UNIT LEAD PSYCHOLOGIST documentation); Mask Ventilation: Easy mask; Type: Standard ETT; Single Lumen Tube Size: 7 mm; Cuffed: Yes; Location: Oral; Grade View: Grade 1; Insertion Attempts: 1; Placement Verification: Bilateral breath sounds, Positive ETCO2, Symmetrical chest wall movement; Removal Date: 05/18/22; Removal Time: 1352 documented in this encounter Social History Tobacco Use Types Packs/Day Years [...] or relatives? How often do you attend alevism or Patient refused 2021 latter day services? Do you belong to any clubs or No 05/17/2022 organizations such as alevism groups, unions, fraternal or athletic groups, or [...] place to sleep or slept in a halfway (including now)? Education Answer Date Recorded What is the highest level of school Associate degree: etta polo, 03/24/2021 you have completed or the highest technical, or vocational p john degree you have received? Sex Assigned at Date Recorded Female 03/01/2019 10:12 AM CDT documented as of this encounter OR Notes Anesthesia Postprocedure Evaluation - Kaushik Carpenter M.B., Ch.B. - 05/18/2022 4:19 PM CDT Patient: Angie Mosquera Procedure Summary Date: 05/18/22 Room / Location: [place] [address] / [facility] in [place], [place] Anesthesia Start: 1214 Anesthesia Stop: 1415 Procedure: ARTHROPLASTY REPLACEMENT TOTAL SHOULDER. (Left Shoulder) Diagnosis: Shoulder Joint Disorder Left (Loose left total shoulder arthroplasty.) Providers: Cyrus Polk M.D. Responsible Provider: Kaushik Carpenter M.B., Ch.B. Anesthesia Type: general with pain block ASA Status: 3 Anesthesia Type: general with pain block Last vitals Vitals Value Taken Time BP 95/70 05/18/22 1530 Temp 37.1 ??C 05/18/22 1405 Pulse 62 05/18/22 1537 Resp 18 05/18/22 1536 SpO2 99 % 05/18/22 1537 Vitals shown include unvalidated device data. Please reference Vitals flowsheet for most recent vital signs. Anesthesia Post Evaluation Patient Disposition: general care unit Cardiovascular status: hemodynamics (HR & BP) acceptable Respiratory status: patent airway with spontaneous effort Temperature: normothermic Oxygen requirements: nasal cannula Level of consciousness: awake Pain score: pain adequately controlled and/or at baseline Post Op nausea/vomiting: none Hydration status: euvolemic Anesthesia Procedure Notes - Ihsan Townsend APRN, CRNA - 05/18/2022 12:50 PM CDTAssociated Order(s): Airway Airway Date/Time: 05/18/2022 12:20 PM Performed by: Ihsan Townsend APRN, CRNA Authorized by: Kaushik Carpenter M.B., Ch.B. Patient location during procedure: OR / Procedure Area PROCEDURE DETAILS: Mask difficulty assessment: easy mask Final airway type: video laryngoscope Laryngeal Manipulation: no Final best view of glottic structures - Cormack/Lehane Score: grade 1 ETT location: oral VL device: glide scope [place] scope blade size: 3 Adult tube size: 7 Adult ETT distance at teeth/gum: 22 Oral tube type: standard ETT Cuffed: yes Number of attempt to successful placement: 1 Airway confirmation: bilateral breath sounds, positive ETCO2 and bilateral chest rise Other previous techniques attempted: none PRE PROCEDURE DETAILS: Pre evaluation for airway management: procedure Urgency: elective Preop assessment of probable difficulty: questionable / suspicious difficult airway Preoxygenation: bag valve mask SEDATION / ANESTHESIA Anesthesia method: anesthesia POST PROCEDURE DETAILS: Procedure outcome: successful Airway event: no complications Anesthesia Procedure Notes - Jonah Mendez M.D. - 05/18/2022 11:29 AM CDT Associated Order(s): Regional Block Regional Block Date/Time: 05/18/2022 11:24 AM Performed by: Jonah Mendez M.D. Authorized by: Jonah Mendez M.D. Location: Pre Op / PACU PROCEDURE DETAILS: Block Indication: post-op pain block Block indication comment: Post-Op pain block at request of surgeon Block Type - Upper extremity: interscalene Positioning: supine Laterality: left Block technique: ultrasound guided Ultrasound image guidance used to localize target, identify at risk structures, and dynamically usedto direct therapy to the target. Procedure was performed under sterile conditions.Image(s) acquired and saved Injection technique: single injection Needle type: insulated Gauge: 22G Length: 5 Test dose: yes- negative test dose Incremental injection of local anesthetic with aspiration every:5cc Pain with needle advancement or injection of local anesthetic: no Injected Medications: Injection(s), anesthetic agent(s) and/or steroid; See MAR UNIVERSAL PROTOCOL All relevant documentation and testing were reviewed and available. All required blood products, implants, devices and or special equipment were made available as applicable. Pre-procedure verificationwas conducted and the correct site was marked if required. A fire risk assessment was done as applicable. The procedural time-out to verify correct patient, correct side/site, and procedure was conducted prior to performing the procedure and confirmed in a procedural pause. PRE-PROCEDURE DETAILS: Appropriate hand hygiene, gown, cap, mask, protective eyewear, sterile gloves, skin preparation, sterile drape, and strict aseptic technique were utilized as applicable for the procedure.: yes Skin prep: povidone / iodine SEDATION / ANESTHESIA Anesthesia method: local infiltration Local infiltrate type: lidocaine POST-PROCEDURE DETAILS: Procedure completed successfully: successful procedure Other complications: none Anesthesia Preprocedure Evaluation - Kaushik Carpenter M.B., Ch.B. - 05/18/2022 11:12 AM CDT Preprocedure Anesthesia & H&P Assessment Procedure Summary Date/Time: 05/18/222 Procedure: ARTHROPLASTY REPLACEMENT TOTAL SHOULDER. 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 Location: [place] [address] / [facility] in [place], [place] Providers: Cyrus Polk M.D. Pertinent components of the patient's history including current problem list, medical history, surgical history, family history, social history, medications and allergies were reviewed. Present illnessand pre-op diagnosis were confirmed. The planned surgery / procedure was verified with the patient /legal guardian. 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[facility]) (+) Transient Ischemic Attack MSK/RHEUM (+) Esophageal Motility Disorder (+) Fibromyalgia HEME (+) Anemia Other (+) Nicotine Dependence Cigarettes (+) Nicotine Dependence Unspecified (+) Opioid Moderate Or Severe Use Disorder (Dependence) Uncomplicated (HCC) (+) Pain Shoulder Left (+) Primary Osteoarthritis Shoulder Left OBJECTIVE PHYSICAL EXAMINATION Airway (HEENT) Mallampati: II TM Distance: >3 FB Neck ROM: Limited Mouth Opening: >3 cm Cardiovascular Rhythm: Regular Rate: Normal Cardiovascular Assessment: cardiovascular normal Functional Capacity: >4 METS Pulmonary Pulmonary Assessment: Clear General / Constitutional Constitutional Assessment: Overweight Neurological Neurologic Assessment:??alert Dental Dental Assessment: lower dentures and upper dentures Skin Multiple tattoos and piercings ASSESSMENT / PLAN ANESTHESIA PLAN ASA: 3 Anesthesia Plan: general with pain block Patient seen and allergies reviewed, anesthesia plan and risks discussed directly with patient /legal guardian or through an substation electrician. 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 Chronic pain - oxy 40 -50 mg daily. Baseline 06/06 Asthma, current smoker documented in this encounter Plan of Treatment Not on filedocumented as of this encounter Procedures Procedure Name Priority Date/Time Associated Comments Diagnosis LDA ANE ENDOTRACHEAL Routine 05/18/2022 12:20 Res ults for this AIRWAY PM CDT procedure are i n the results section. MC ANE NERVE BLOCK Routine 05/18/2022 11:24 Resul ts for this WITH ULTRASOUND AM CDT procedure ar e in the results section. NM US GUIDE PLC NDL Routine 05/18/2022 11:24 Resu lts for this AM CDT procedure are i n the results section. NM INJ ANES BRACHIAL Routine 05/18/2022 11:24 Res ults for this PLEX AM CDT procedure are i n the results section. documented in this encounter Results LDA ANE ENDOTRACHEAL AIRWAY (05/18/2022 12:20 PM CDT) Narrative Ihsan Townsend APRN, CRNA - 05/18/2022 12:20 PM CDT Ihsan Townsend APRN, CRNA ? 05/18/2022 12:51 PM Airway Date/Time: 05/18/2022 12:20 PM Performed by: Ihsan Townsend APRN, CRNA Authorized by: Kaushik Carpenter M.B., C h.B. Patient location during procedure: OR / Procedure Area PROCEDURE DETAILS: Mask difficulty assessment: easy mask Final airway type: video laryngoscope Laryngeal Manipulation: no ?? Final best view of glottic structures - Cormack/Lehane Score: grade 1 ETT location: oral VL device: glide scope [place] scope blade size: 3 Adult tube size: [...] successful ?? Airway event: no complications Kaushik Carlos, BBritton ANESTHESIA ORDERABLES NM INJ ANES BRACHIAL PLEX, NM US GUIDE PLC NDL, MC ANE NERVE [...] Jonah Mendez M.D. PROCEDURE/MINOR SURGICAL ORD ERABLES documented in this encounter Visit Diagnoses Not on filedocumented in this encounter Administered Medications Inactive Administered Medications - up to 3 most recent administrations Medication Order MAR Action Action Date Dose Rate Site bupivacaine-EPINEPHrine (PF) 0.5 Given 05/18/2022 11:24 AM CDT 1 5 mL %-1:200,000 injection (MARCAINE w/EPI) peripheral nerve block, As needed, Starting on Tue05/18/22 at 1124, Anesthesia Intra-op ceFAZolin injection 2,000 mg (ANCEF) Given 05/18/2022 12:40 PM CDT 2 g 2,000 mg (rounded from 1,652.5 mg = 25 m g/kg ? 66.1 kg), intravenous, Once, On Tue05/18/22 at 1045, For 1 dose, Intra-Op, Preoperatively within 1 hour prior to surgical incision If needed, reconstitute vial per package insert instructions. See IVAG for administration guidelines. , Drug Monitoring Program: Pharmacist to adjust medication dosing based on indication and drug clearance factors., Indications: Prophylaxis, surgical dexAMETHasone injection (DECADRON) Given 05/18/2022 12:18 PM CDT 8 mg intravenous, As needed, Starting on Tue05/18/22 at 1218, Anesthesia Intra-op ePHEDrine (PF) injection Given 05/18/2022 12:46 PM CDT 10 mg intravenous, As needed, Starting on Tue05/18/22 at 1246, Anesthesia Intra-op fentaNYL injection (SUBLIMAZE) Given 05/18/2022 12:18 PM CDT 100 mcg intravenous, As needed, Starting on Tue05/18/22 at 1218, Anesthesia Intra-op lactated ringers New Bag 05/18/2022 12:14 PM CDT intravenous, Continuous Infusion: Per Instructions PRN, Starting on Tue05/18/22 at 1214, Anesthesia Intra-op lidocaine (PF) (cardiac) injection Given 05/18/2022 12:18 PM CDT 60 mg intravenous, As needed, Starting on Tue05/18/22 at 1218, Anesthesia Intra-op ondansetron (PF) injection (ZOFRAN) Given 05/18/2022 12:18 PM CDT 4 mg intravenous, As needed, Starting on Tue05/18/22 at 1218, Anesthesia Intra-op propofol 10 mg/mL infusion New Bag 05/18/2022 12:22 100 mcg/kg/min 39.66 mL/hr (DIPRIVAN) PM CDT intravenous, Continuous Infusion: Per Instructions PRN, Starting on Tue05/18/22 at 1222, Anesthesia Intra-op propofol bolus from bag (DIPRIVAN) Given 05/18/2022 1:00 PM CDT 40 mg intravenous, As needed, Starting on Tue05/18/22 at 1300, Anesthesia Intra-op propofoL injection (DIPRIVAN) Given 05/18/2022 12:18 PM CDT 140 mg intravenous, As needed, Starting on Tue05/18/22 at 1218, Anesthesia Intra-op rocuronium injection (ZEMURON) Given 05/18/2022 1:18 PM CDT 30 mg intravenous, As needed, Starting on Tue05/18/22 at 1318, Anesthesia Intra-op succinylcholine (PF) injection (ANECTINE ) Given 05/18/2022 12:19 PM CDT 80 mg intravenous, As needed, Starting on Tue05/18/22 at 1219, Anesthesia Intra-op sugammadex injection (BRIDION) Given 05/18/2022 1:47 PM CDT 150 mg intravenous, As needed, Starting on Tue05/18/22 at 1347, Anesthesia Intra-op tranexamic acid in NaCl IVPB 1,000 mg Given 05/18/2022 12:40 PM CDT 1 g (CYKLOKAPRON) 1,000 mg (1 g), intravenous, at 300 mL/hr, Administer over 20 Minutes, Once, On Tue05/18/22 at 1045, For 1 dose, Intra-Op, Administer in OR upon induction documented in this encounter Additional Health Concerns Assessment Noted Time PHQ-9 Depression Total Score: 16 02/11/2021 12:00 AM C DT documented as of this encounter Care Teams Reed Worker Relationship Specialty Start Date End Date Elsewhere, Pcp PCP - General Internal Medicine 12/25/21 documented as of this encounter
--- OUTSIDE RECORDS SUMMARY | 2022-07-06 14:47 | XMS_ITS | Encounter Summary ---
:1965 Author Organization [facility] Address [address] [place] [address] Care Team Providers Name Role Phone Elsewhere, Pcp Primary Care Provider Unavailable Encounter Details Date Type Department Care Team Description 05/17/2022 Hospital Encounter Department of Alfredo Herrera Preo perative Exam Laboratory Medicine O.P.A.-C. and Pathology, [place] [address] [facility], in [place], [place] [phone] [place] [address] [place], [place] (Work) [phone] Social History Tobacco Use Types Packs/Day Years Used Date Smoking Tobacco: Every Day Cigarettes 2 30 S tarted: 11/28/1977 Smokeless Tobacco: Never [...] or relatives? How often do you attend orthodoxy or Patient refused 2021 yarsanism services? Do you belong to any clubs or No 05/17/2022 organizations such as orthodoxy groups, unions, fraternal or athletic groups, or [...] AM CDT documented as of this encounter Medications at Time of Discharge Medication Sig Dispensed Refills Start Date End Date acetaminophen (TYLENOL) Take 2 capsules 0 022 500 mg capsule (1,000 mg total) by mouth every 6 (six) hours as needed for pain. Start the day of surgery. albuterol (PROVENTIL Inhale 2 puffs every 0 HFA,VENTOLIN HFA) 90 6 (six) hours as mcg/actuation inhaler needed for wheezing or shortness of breath. Arnuity Ellipta 100 Inhale 1 puff daily. 0 2021 mcg/actuation diskus inhaler aspirin 325 mg tablet Take 1 tablet (325 mg 0 12/2021 total) by mouth every evening. atorvastatin (LIPITOR) Take 1 tablet (80 mg 90 tablet 3 80 mg tablet total) by mouth at bedtime. benzonatate (TESSALON Take 100 mg by mouth 6 02/27 PERLES) 100 mg capsule 3 (three) times a day as needed for cough. buPROPion XL (WELLBUTRIN Take 150 mg by mouth 0 0 02/04/2021 XL) 150 mg 24 hr tablet every morning. butalbital-acetaminophen Take 1 tablet by 0 02/27 -caff (ESGIC) 50-325-40 mouth every 6 (six) mg per tablet hours as needed for migraine. cetirizine (ZyrTEC) 10 Take 10 mg by mouth 2 0 mg tablet (two) times a day. cholecalciferol (VITAMIN Take 125 mcg by mouth 0 D3) 125 mcg (5,000 Unit) every morning. tablet clindamycin (CLEOCIN T) Apply 1 application 0 1 % external solution topically 2 (two) times a day. Apply to face. cyanocobalamin, vitamin Take 1 tablet by 0 2021 B-12, 2,500 mcg lozenge mouth daily. diazePAM (VALIUM) 10 mg Take 10 mg by mouth 2 0 0 02/14/2019 tablet (two) times a day as needed. diclofenac sodium Apply 2-4 g topically 0 022 (VOLTAREN) 1 % gel 4 (four) times a day as needed. diphenhydrAMINE Take 75 mg by mouth 0 (BENADRYL) 25 mg tablet at bedtime. esomeprazole (NexIUM) 40 Take 40 mg by mouth 2 0 11/19/[address] capsule (two) times a day before breakfast and dinner. FLUoxetine (PROzac) 40 Take 80 mg by mouth 0 mg capsule every morning. furosemide (LASIX) 40 mg Take 40 mg by mouth 0 tablet daily. ipratropium-albuteroL Inhale 3 mL by 0 01/16/2021 (DUONEB) 0.5-2.5 mg/3 mL nebulization 4 (four) nebulizer solution times a day as needed for shortness of breath or wheezing. lamoTRIgine (LaMICtal) Take 200 mg by mouth 3 200 mg tablet 2 (two) times a day. MAG-G 27 mg magnesium Take 1 tablet by 3 02/17/20 19 (500 mg) tablet mouth at bedtime. meclizine (ANTIVERT) 25 Take 25 [...] dose - per pt medical cannabis oil Take 1 each by mouth 0 oral as needed (pain). 1 spray as needed. 5 mg THC multivit-min/iron/folic/ Take 1 tablet by 0 [id number] (HAIR, SKIN AND mouth daily. NAILS ADVANCED ORAL) ondansetron ODT Take 1 tablet by 0 01/16/2010 (ZOFRAN-ODT) 8 mg mouth 3 (three) times disintegrating tablet a day as needed for nausea. oxyCODONE (ROXICODONE) Take 10 mg by mouth 0 / 10 mg IR tablet every 4 (four) hours as needed for pain. oxyCODONE (ROXICODONE) 5 Take 1 tablet (5 mg 30 tablet 0 mg immediate release total) by mouth every tabletIndications: Acute 4 (four) hours as Pain, Acute Pain needed for severe Exception pain or score 7-10 of 10 Indication: Acute Pain, Acute Pain Exception. polyethylene glycol Take 17 g by mouth as 0 04/11 (MIRALAX) 17 gram/dose needed for oral powder constipation. pregabalin (LYRICA) 300 Take 600 mg by mouth 0 mg capsule 2 (two) times a day. QUEtiapine (SEROquel) 50 Take 50 mg by mouth 0 mg tablet at bedtime. rOPINIRole (REQUIP) 2 mg Take 2 mg by mouth at 0 01/28/2022 tablet bedtime. sennosides-docusate Take 1 tablet by 0 02/26/2022 sodium (SENOKOT-S) mouth 2 (two) times a 8.6-50 mg per tablet day. tiZANidine (ZANAFLEX) 4 Take 4-8 mg by [...] 0 500 mg tablet daily. zonisamide (ZONEGRAN) Take 300 mg by mouth 8 01/27 100 mg capsule 2 (two) times a day. oxyCODONE (ROXICODONE) 5 Take 1-2 tablets 20 tablet 0 02/2605/18/2022 mg immediate release (5-10 mg total) by tabletIndications: Acute mouth every 4 (four) Pain Exception hours as needed for severe pain or score 7-10 of 10 (for pain not controlled by Tylenol.) Indication: Acute Pain Exception. oxyCODONE (ROXICODONE) 5 Take 1 tablet (5 mg 25 tablet 0 05/18/2022 mg immediate release total) by mouth every tabletIndications: 4 (four) hours as Prolonged Acute needed for moderate Pain/Traumatic Injury pain or score 4-6 of 10 or severe pain or score 7-10 of 10 (one tablet moderate pain, two for severe pain. Patient using for breakthrough surgical pain on top of her baseline chronic pain meds.) Indication: Prolonged Acute Pain/Traumatic Injury. documented as of this encounter Plan of Treatment Not on filedocumented as of this encounter Procedures Procedure Name Priority Date/Time Associated Diagnosis Comme nts SPSMA RESULT Routine 05/17/2022 10:50 Results for this AM CDT procedure are i n the results section. CBC WITH Routine 05/17/2022 10:50 Preoperative Exam Result s for this DIFFERENTIAL, B AM CDT procedure ar e in the results section. TYPE AND SCREEN Routine 05/17/2022 10:50 Preoperative Exam Res ults for this AM CDT procedure are i n the results section. BASIC METABOLIC Routine 05/17/2022 10:50 Preoperative Exam Res ults for this PANEL, S/P AM CDT procedure are i n the results section. documented in this encounter Results (ABNORMAL) SPSMA Result (05/17/2022 10:50 AM CDT) [...] Basophils 1 0 - 2 % 05/17/2022 [facility] 1:04 PM CDT Manual Absolute 2.24 1.56 - 05/17/2022 [facility] Neutrophil Count 6.45 1:04 PM CDT x10(9)/L Comment: ----ADDITIONAL INFORMATION---- The manual absolute neutrophil count is derived from a manual differential count and therefore is not exactly comparable to the automated absolute leilani trophil count. Interpretation SeeComment 05/17/2022 1:04 PM CDT D HPM Comment: Hypochromic microcytic red blood cells a re present; consider iron deficiency anemia. Reviewed by: Tech 05/17/2022 1:04 PM CDT [facility] Specimen Anatomical Collection Method Collection Time Receive d Time (Source) Location / / Volume Laterality Blood 05/17/2022 10:50 05/17/2022 AM CDT 11:30 AM CDT Alfredo Kamara LAB BLOOD ADD-ON Performing Organization Address City/State/ZIP Code Phon e Number [facility] - [address] [place] [address] [address] [place] [address] [facility] 200 [facility] Basic Metabolic Panel (05/17/2022 10:50 AM CDT) athologist Signature Potassium, S 5.0 3.6 - 5.2 05/17/2022 DTL mmol/L 12:12 PM CDT Sodium, S 140 135 - 145 05/17/2022 D[facility] mmol/L 12:12 PM CDT Chloride, S 106 98 - 107 05/17/2022 D[facility] mmol/L 12:12 PM CDT Bicarbonate, S 24 22 - 29 05/17/2022 DTL mmol/L 12:12 PM CDT Anion Gap 10 7 - 15 05/17/2022 DTL 12:12 PM CDT BUN (Blood Urea 18 6 - 21 05/17/2022 DTL Nitrogen), S mg/dL 12:12 PM CDT Creatinine, S 0.76 0.59 - 1.04 05/17/2022 DTL mg/dL 12:12 PM CDT eGFR-Non 86 >=60 05/17/2022 D[facility] Black/ mL/min/BSA 12:12 PM CDT [place] Comment: ----ADDITIONAL INFORMATION---- Estimated GFR calculated using the 2009 CKD_EPI creatinine equation. eGFR-Black/ >90 >=60 mL/min/BSA 2021 12:12 PM CDT DTL Comment: ----ADDITIONAL INFORMATION---- Estimated GFR calculated using the 2009 CKD_EPI creatinine equation. Calcium, Total, S 9.6 8.6 - 10.0 mg/dL 05/17/2022 12:1 2 PM CDT DTL Glucose, S 98 70 - 140 mg/dL 05/17/2022 12:12 PM CDT DTL Specimen Anatomical Collection Method Collection Time Receive d Time (Source) Location / / Volume Laterality Blood (Blood, 05/17/2022 10:50 05/17/2022 Venous) AM CDT 11:45 AM CDT Alfredo Kamara LAB BLOOD ADD-ON Performing Organization Address City/[facility] Phon e Number [facility] - [address] [place], [place] [address] [address] [facility] [place] [address] [place] [address] [facility] Type and Screen (with reflex Antibody ID) (05/17/2022 10:50 AM CDT) [facility] Method Time Signature ABORh A Neg Not 05/17/2022 ETRM applicable 7:10 PM CDT Antibody Negative Negative 05/17/2022 ETRM Screen 7:22 PM CDT Type & Screen 07/15/2022 05/17/2022 ETRM Expiration 23:59 7:10 PM CDT Testing [place] DEFAULT 05/17/2022 ETRM Location 12:24 PM CDT Specimen Anatomical Collection Method Collection Time Receive d Time (Source) Location / / Volume Laterality Blood (Blood, 05/17/2022 10:50 05/17/2022 Venous) AM CDT 12:24 PM CDT Alfredo Kamara LAB BLOOD BANK TEST ORDERABL ES Performing Organization Address City/[facility] Phon e Number [facility] - [address] [place], [place] [address] [facility] [place] [address] (ABNORMAL) CBC with Differential, Blood (05/17/2022 10:50 AM CDT) [facility] gist Method Time Signature Hemoglobin 9.2 (L) 11.6 - 05/17/2022 DTL 15.0 g/dL 11:46 AM CDT Hematocrit 31.9 (L) 35.5 - 05/17/2022 DTL 44.9 % 11:46 AM CDT Erythrocytes 4.12 3.92 - 05/17/2022 DTL 5.13 11:46 AM CDT x10(12)/L MCV 77.4 (L) 78.2 - 05/17/2022 DTL 97.9 fL 11:46 AM CDT RBC Distrib Width 22.1 (H) 12.2 - 05/17/2022 DTL 16.1 % 1:03 PM CDT Comment: Rechecked Platelet Count 337 157 - 371 x10(9)/L 05/17/2022 11:46 AM CDT DTL Leukocytes 4.4 3.4 - 9.6 x10(9)/L 05/17/2022 11:46 AM CDT DTL Neutrophils SeeComment 1.56 - 6.45 x10(9)/L 05/17/2022 1:03 PM CDT DTL Comment: Auto-diff results not valid. Se e manual differential. Specimen Anatomical Collection Method Collection Time Receive d Time (Source) Location / / Volume Laterality Blood (Blood, 05/17/2022 10:50 05/17/2022 Venous) AM CDT 11:30 AM CDT Alfredo Kamara LAB BLOOD ADD-ON Performing Organization Address City/State/ZIP Code Phon e Number [facility] - [address] [place], [place] [address] [facility] [place] [address] [facility] [address] documented in this encounter Visit Diagnoses Diagnosis Preoperative Exam documented in this encounter Additional Health Concerns Infection Onset Date Last Indicated Resolved Time COVID19 Pending 05/17/2022 05/17/2022 05/17/2022 2:34 PM CDT Assessment Noted Time PHQ-9 Depression Total Score: 16 02/11/2021 12:00 AM C DT documented as of this encounter Care Teams Seismic Plotter Relationship Specialty Start Date End Date Elsewhere, Pcp PCP - General Internal Medicine 12/25/21 documented as of this encounter
--- OUTSIDE RECORDS SUMMARY | 2022-07-06 14:47 | XMS_ITS | Encounter Summary ---
:1965 Author Organization [facility] Address [address] [place] [address] Care Team Providers Name Role Phone Elsewhere, Pcp Primary Care Provider Unavailable Encounter Details Date Type Department Care Team Description 03/19/2022 Clinical Communication Department of Cyrus Polk Orthopedic Surgery in [place], [place] [address] [place] [address] 200 [place] [phone] Social History Tobacco Use Types Packs/Day Years [...] or relatives? How often do you attend yarsanism or Patient refused 2021 moravian services? Do you belong to any clubs or No 05/17/2022 organizations such as yarsanism groups, unions, fraternal or athletic groups, or [...] place to sleep or slept in a fpc (including now)? Education Answer Date Recorded What is the highest level of school Associate degree: etta polo, 03/24/2021 you have completed or the highest technical, or vocational p narcisaram degree you have received? Sex Assigned at Date Recorded Female 03/01/2019 10:12 AM CDT documented as of this encounter Miscellaneous Notes Telephone Encounter - Alfredo Herrera O.P.A.-C. - 03/19/2022 11:52 AM CDT Have discussed this situation with the O.R. supervisor files, the A.M. admission Train Station Server, and the Outpatient Train Station Server and no one can locate this remote device. Will have to submit form to security to reimburse patient for this remote device. Telephone Encounter - Aminata Glover - 03/19/2022 9:46 AM CDT Meredith had surgery - she had a spinal stimulator that utilizes a remote - the remote was given to anurse as the nurse told the patient that the surgeon would need. This remote was never given back to patient and she needs. Please return a call to her at [phone] documented in this encounter Plan of Treatment Not on filedocumented as of this encounter Visit Diagnoses Not on filedocumented in this encounter Additional Health Concerns Assessment Noted Time PHQ-9 Depression Total Score: 16 02/11/2021 12:00 AM C DT documented as of this encounter Care Teams Lymphedema Therapist Relationship Specialty Start Date End Date Elsewhere, Pcp PCP - General Internal Medicine 12/25/21 documented as of this encounter
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
--- OUTSIDE RECORDS SUMMARY | 2022-07-06 14:47 | XMS_ITS | Encounter Summary ---
:1965 Author Organization [facility] Address [address] [place] [address] Care Team Providers Name Role Phone Elsewhere, Pcp Primary Care Provider Unavailable Reason for Referral Outpatient (Routine) - Closed Specialty Diagnoses / Procedures Referred By Contact Refer red To Contact Diagnoses Arthroplasty Total Shoulder Replacement Status Post Left Alfredo Herrera O.P.A.-C. [facility] Procedures DX Shoulder Left Ingrowth Series 5 Views [address] [place] [phone] Referral ID Status Reason Start Date Expiration Date Visits Requ ested Visits Authorized [id number] Closed 02/25/2022 02/25/2023 1 1 Reason for Visit Outpatient (Routine) - Closed Specialty Diagnoses / Procedures Referred By Contact Refer red To Contact Diagnoses Arthroplasty Total Shoulder Replacement Status Post Left Alfredo Herrera O.P.A.-C. [facility] Procedures DX Shoulder Left Ingrowth Series 5 Views [address] [place] [phone] Referral ID Status Reason Start Date Expiration Date Visits Requ ested Visits Authorized [id number] Closed 02/25/2022 02/25/2023 1 1 Encounter Details Date Type Department Care Team Description 04/02/2022 Hospital Encounter Department of Alfredo Herrera Total Radiology, Anh Gonzales Shoulder Replacement [facility], in [address] [place] [address] Status Post Left [facility] [phone] [place], [place] (Work) [address] [phone] Social History Tobacco Use Types Packs/Day Years [...] or relatives? How often do you attend lutheran or Patient refused 2021 alevism services? Do you belong to any clubs or No 05/17/2022 organizations such as lutheran groups, unions, fraternal or athletic groups, or [...] place to sleep or slept in a usp (including now)? Education Answer Date Recorded What [...] THC multivit-min/iron/folic/ Take 1 tablet by 0 pod499 (HAIR, SKIN AND mouth daily. NAILS ADVANCED ORAL) ondansetron ODT Take 1 tablet by 0 01/16/2010 (ZOFRAN-ODT) 8 mg mouth 3 (three) times disintegrating tablet a day as needed for nausea. oxyCODONE (ROXICODONE) Take 10 mg by mouth 0 01/28 10 mg IR tablet every 4 (four) [...] Procedure Name Priority Date/Time Associated Comments Diagnosis DX SHOULDER LEFT RAD - Routine 04/02/2022 9:32 Arthroplasty Total R esults for this INGROWTH SERIES 5 (most inpatients AM CDT Shoulder proced ure are in VIEWS and all Replacement Status the resul ts outpatients) Post Left section. documented in this encounter Results DX Shoulder Left Ingrowth Series 5 Views [...] loosening. Alfredo Kamara IMG DIAGNOSTIC IMAGING PROCE ZULEYKA documented in this encounter Visit Diagnoses Diagnosis Arthroplasty Total Shoulder Replacement Status Post Left documented in this encounter Additional Health Concerns Assessment Noted Time PHQ-9 Depression Total Score: 16 02/11/2021 12:00 AM C DT documented as of this encounter Care Teams Software Developer Consultant Relationship Specialty Start Date End Date Elsewhere, Pcp PCP - General Internal Medicine 12/25/21 documented as of this encounter
--- OUTSIDE RECORDS SUMMARY | 2022-07-06 14:47 | XMS_ITS | Encounter Summary ---
:1965 Author Organization [facility] Address [address] [place] [address] Care Team Providers Name Role Phone Elsewhere, Pcp Primary Care Provider Unavailable Encounter Details Date Type Department Care Team Description 04/14/2022 Hospital Encounter Department of Alfredo Herrera Total Shoulder Replacement Status Post Left; Laboratory Medicine A, O.P.A.-C. Painful Total Joint Arthroplasty Initial (HCC) and Pathology, [address] [place] [address], in [place] [phone] [place] [phone] [place] [address] (Work) [place], [place] [phone] (Fax) [phone] Social History Tobacco Use Types Packs/Day Years [...] or relatives? How often do you attend samaritan or Patient refused 2021 tenriism services? Do you belong to any clubs or No 05/17/2022 organizations such as samaritan groups, unions, fraternal or athletic groups, or [...] place to sleep or slept in a retirement (including now)? Education Answer Date Recorded What [...] THC multivit-min/iron/folic/ Take 1 tablet by 0 [id number] (HAIR, SKIN AND mouth daily. NAILS ADVANCED [...] Name Priority Date/Time Associated Diagnosis Comme nts CBC WITHOUT Routine 04/14/2022 10:42 Painful Total Joint Resu lts for this DIFFERENTIAL, B AM CDT Arthroplasty Initial proc edure are in ([facility]) the results section. C-REACTIVE PROTEIN Routine 04/14/2022 10:42 Painful Total Join t Results for this (CRP), S/P AM CDT Arthroplasty Initial procedu re are in ([facility]) the results section. documented in this encounter Results CRP (C-Reactive Protein) (04/14/2022 10:42 AM CDT) P athologist Signature C-Reactive <3.0 <=8.0 mg/L 04/14/2022 DTL Protein (CRP), 11:43 AM CDT S Specimen Anatomical Collection Method Collection Time Receive d Time (Source) Location / / Volume Laterality Blood (Blood, 04/14/2022 10:42 04/14/2022 Venous) AM CDT 11:20 AM CDT Alfredo Kamara LAB BLOOD ADD-ON Performing Organization Address City/State/ZIP Code Phon e Number [facility] - [address] [place], [place] [address] [facility] [place] [address] Laboratories-[facility] [address] (ABNORMAL) CBC without Differential (04/14/2022 10:42 AM CDT) [facility] gist Method Time Signature Hemoglobin 8.6 (L) 11.6 [...] Kamara LAB BLOOD ADD-ON Performing Organization Address City/[facility] Phon e Number [facility] - [address] [place], [place] [address] [facility] [place] [address] Laboratories-[facility] [address] [facility] documented in this encounter Visit Diagnoses Diagnosis Arthroplasty Total Shoulder Replacement Status Post Left Painful Total Joint Arthroplasty Initial (HCC) documented in this encounter Additional Health Concerns Assessment Noted Time PHQ-9 Depression Total Score: 16 02/11/2021 12:00 AM C DT documented as of this encounter Care Teams Tile Roofer Relationship Specialty Start Date End Date Elsewhere, Pcp PCP - General Internal Medicine 12/25/21 documented as of this encounter
--- OUTSIDE RECORDS SUMMARY | 2022-07-06 14:47 | XMS_ITS | Encounter Summary ---
:1965 Author Organization [facility] Address [address] [place] [address] Care Team Providers Name Role Phone Elsewhere, Pcp Primary Care Provider Unavailable Reason for Referral Outpatient (Routine) - Closed Specialty Diagnoses / Procedures Referred By Contact Refer red To Contact Diagnoses Painful Total Joint Arthroplasty Initial (HCC) Alfredo Herrera [place] Procedures ORS US-Guided aspiration/injection O.P.A.-C. 200 [place] [address] Referral ID Status Reason Start Date Expiration Date Visits Requ ested Visits Authorized [id number] Closed 04/02/2022 04/02/2023 1 1 MRI/CAT/PET Scan (Routine) - Closed Specialty Diagnoses / Procedures Referred By Contact Refer red To Contact Radiology Diagnoses Painful Total Joint Arthroplasty Initial ([facility]) Alfredo Herrera [place] Procedures CT Shoulder Left without IV Contrast O.P.A.-C. 200 [place] [address] Referral ID Status Reason Start Date Expiration Date Visits Requ ested Visits Authorized [id number] Closed 04/02/2022 04/02/2023 1 1 Reason for Visit Outpatient (Routine) - Closed Specialty Diagnoses / Procedures Referred By Contact Refer red To Contact Orthopedic Surgery Diagnoses Arthroplasty Total Shoulder Replacement Status Post Left Alfredo Herrera [place] [facility] O.P.ABritton-C. [address] [place] [address] Referral ID Status Reason Start Date Expiration Date Visits Requ ested Visits Authorized [id number] Closed 02/25/2022 02/25/2023 1 1 Encounter Details Date Type Department Care Team Description 04/02/2022 Office Visit Department of Cyrus Polk Arthroplasty Total Shoulder Replacement Status Post Left; Orthopedic Surgery in [place] Painful Total Joint Arthroplasty Initial (HCC) [place], [place] [address] [facility] [address] [place] [phone] Social History Tobacco Use Types Packs/Day Years [...] or relatives? How often do you attend latter day or Patient refused 2021 confucianist services? Do you belong to any clubs or No 05/17/2022 organizations such as latter day groups, unions, fraternal or athletic groups, or [...] place to sleep or slept in a custodial (including now)? Education Answer Date Recorded What is the highest level of school Associate degree: etta polo, 03/24/2021 you have completed or the highest technical, or vocational p john degree you have received? Sex Assigned at Date Recorded Female 03/01/2019 10:12 AM CDT documented as of this encounter Progress Notes Cyrus Polk M.D. - 04/02/2022 9:45 AM CDT SUBJECTIVE HISTORY OF PRESENT ILLNESS She had a left revision done for infection, implant done elsewhere. She notes that she tripped and fell and dislocated her reverse arthroplasty. She felt a pop when she tripped and fell on a carpet. OBJECTIVE PHYSICAL EXAMINATION Female in no acute distress. No erythema or warmth or drainage. The incision is well healing. Her deltoid does fire well anterior, posterior, and laterally. DIAGNOSTICS Her radiographs demonstrate a dislocated reverse arthroplasty. ASSESSMENT / PLAN #1 Female status post dislocated reverse At this point, she will get an aspiration and CT scan. She understands her responsibility to call me16 days after the results of the aspiration are done to review the results. Cyrus Polk M.D. CT CT Job ID: [id number] documented in this encounter Plan of Treatment Not on filedocumented as of this encounter Results CT Shoulder Left without IV Contrast (04/14/2022 [...] proximal humerus adjacent to the prosthesis. Alfredo Kamara IMG CT PROCEDURES CRP (C-Reactive Protein) (04/14/2022 10:42 AM CDT) P athologist Signature C-Reactive <3.0 <=8.0 mg/L 04/14/2022 DTL Protein (CRP), 11:43 AM CDT S Specimen Anatomical Collection Method Collection Time Receive d Time (Source) Location / / Volume Laterality Blood (Blood, 04/14/2022 10:42 04/14/2022 Venous) AM CDT 11:20 AM CDT Alfredo Kamara LAB BLOOD ADD-ON Performing Organization Address City/State/ZIP Code Phon e Number [facility] - [address] [place] [phone] [facility] [place] [address] Laboratories-[facility] 200 [facility] (ABNORMAL) CBC without Differential (04/14/2022 10:42 AM CDT) [facility] Method Time Signature Hemoglobin 8.6 (L) [...] Organization Address City/State/ZIP Code Phon e Number [facility] - [address] [place], [place] [address] [facility] [place] [address] Laboratories-[facility] [address] ARTHCS ASP/INJ MJR JT W US (04/14/2022 [...] Code Phon e Number MMODAL MMODAL NA documented in this encounter Visit Diagnoses Diagnosis Arthroplasty Total Shoulder Replacement Status Post Left Painful Total Joint Arthroplasty Initial (HCC) Painful Total Joint Arthroplasty Initial (HCC) Painful Total Joint Arthroplasty Initial (HCC) documented in this encounter Additional Health Concerns Assessment Noted Time PHQ-9 Depression Total Score: 16 02/11/2021 12:00 AM C DT documented as of this encounter Care Teams Waste Collector Relationship Specialty Start Date End Date Elsewhere, Pcp PCP - General Internal Medicine 12/25/21 documented as of this encounter
--- OUTSIDE RECORDS SUMMARY | 2022-07-06 14:47 | XMS_ITS | Encounter Summary ---
:1965 Author Organization [facility] Address [address] [place] [address] Care Team Providers Name Role Phone Elsewhere, Pcp Primary Care Provider Unavailable Reason for Visit Reason Comments pre op orders Encounter Details Date Type Department Care Team Description 04/02/2022 Clinical Communication Department of Cyrus Polk op orders Orthopedic Surgery in [place] Souza [place], [place] [address] [place] [address] 200 [place] [phone] Social History Tobacco Use Types Packs/Day Years [...] you attend baptist or Patient refused 2021 synagogue services? Do you belong to any clubs [...] this encounter Miscellaneous Notes Telephone Encounter - Cyrus Polk M.D. - 04/21/2022 7:13 AM CDT Please see below Thank you Telephone Encounter - Deann Watkins - 04/19/2022 12:31 PM CDT Patient is calling in and wondering if she needs any pre op appts prior to her surgery on May 18. Telephone Encounter - Sosa Laughlin - 04/02/2022 11:12 AM CDT Please advise what pre ops are need prior to surgery on 05/18. Thank you documented in this encounter Plan of Treatment Not on filedocumented as of this encounter Visit Diagnoses Not on filedocumented in this encounter Additional Health Concerns Assessment Noted Time PHQ-9 Depression Total Score: 16 02/11/2021 12:00 AM C DT documented as of this encounter Care Teams Cadworx Piping Designer Relationship Specialty Start Date End Date Elsewhere, Pcp PCP - General Internal Medicine 12/25/21 documented as of this encounter
--- OUTSIDE RECORDS SUMMARY | 2022-07-06 14:47 | XMS_ITS | Encounter Summary ---
:1965 Author Organization [facility] Address [address] [place] [address] Care Team Providers Name Role Phone Elsewhere, Pcp Primary Care Provider Unavailable Reason for Visit Outpatient (Routine) - Closed Specialty Diagnoses / Procedures Referred By Contact Refer red To Contact Anesthesiology Diagnoses Anemia Shauna Rubin APRN, [facility] C.N.P., M.S.N. [address] [place] [phone] Referral ID Status Reason Start Date Expiration Date Visits Requ ested Visits Authorized [id number] Closed 04/22/2022 04/22/2023 1 1 Encounter Details Date Type Department Care Team Description 05/03/2022 Comprehensive Visit Preoperative Evaluation Shauna Gomez, NIKKY, C.N.P., M.S.N. [address] [place] [phone] [facility] in [place], Peter Tse R.N. [address] [place] [phone] [place] [address] [place] [phone] Social History Tobacco Use Types Packs/Day Years [...] or relatives? How often do you attend congregation or Patient refused 2021 judaism services? Do you belong to any clubs or No 05/17/2022 organizations such as congregation groups, unions, fraternal or athletic groups, or [...] place to sleep or slept in a detention (including now)? Education Answer Date Recorded What is the highest level of school Associate degree: etta polo, 03/24/2021 you have completed or the highest technical, or vocational p narcisaram degree you have received? Sex Assigned at Date Recorded Female 03/01/2019 10:12 AM CDT documented as of this encounter Progress Notes Peter Tse R.N. - 05/03/2022 1:45 PM CDT Patient is here for anemia management prior to planned ARTHROPLASTY REPLACEMENT TOTAL SHOULDER surgery 05/18/2022. No data recorded Lab Results Component Value Date Leukocytes 4.2 04/14/2022 Hemoglobin 8.6 (L) 04/14/2022 Hematocrit 27.8 (L) 04/14/2022 MCV 76.4 (L) 04/14/2022 Platelet Count 298 04/14/2022 C-Reactive Protein (CRP), S <3.0 05/03/2022 Iron 15 (L) 05/03/2022 Total Iron Binding Capacity 396 05/03/2022 Percent Saturation 4 (L) 05/03/2022 Ferritin, S 8 (L) 05/03/2022 Vitamin B12 Assay, S 300 05/03/2022 Folate, S 14.6 05/03/2022 Reticulocytes, B 1.31 05/03/2022 Anemia Related History: Ms. Mosquera is a 57 y.o. patient here for preop anemia evaluation prior to a planned ARTHROPLASTY REPLACEMENT TOTAL SHOULDER on 05/18/2022. Presents today with Hgb 8.6 on (04/14/2022), iron of 15 and Ferritin of 8 mcg/dL, Tsat 4 %, Absolute retic count of 48.5, B12 of 300 ng/L and a normal Folate of 14.6 mcg/L. Patient denies taking oral iron supplements or multivitamins to support her blood health/Hgb. Anemia Probable Diagnosis: Ms. Mosquera would be classified according to our Preoperative Anemia Treatment Algorithm as being iron deficient. She denies any?blood disorder, previous blood transfusions, EPO injections, recent chemotherapy, cancer history, taking proton pump inhibitors, recent blood donations, recent surgery/procedure, bleeding history, celiac disease, or IBD. ?Denies epistaxis, hematemesis, hematuria, hematochezia, and melena. She has received IV iron in the past when living in [place] (approximately 5-6 years ago). Therapy Plan: With the planned ARTHROPLASTY REPLACEMENT TOTAL SHOULDER on 05/18/2022 the patient would meet criteria based on the Preoperative Anemia Treatment Algorithm and RN Anemia Protocol to receive 1 x 1,000 mgdose of IV iron dextran. Patient agrees with this and would like this administered @ [facility]. I provided the patient with the education pamphlet [id number] Treating Anemia Before Surgery andanswered her questions about anemia and IV iron dextran. I spent 30 minutes with the patient. documented in this encounter Plan of Treatment Not on filedocumented as of this encounter Visit Diagnoses Diagnosis Anemia documented in this encounter Additional Health Concerns Assessment Noted Time PHQ-9 Depression Total Score: 16 02/11/2021 12:00 AM C DT documented as of this encounter Care Teams Durable Medical Equipment Technician Relationship Specialty Start Date End Date Elsewhere, Pcp PCP - General Internal Medicine 12/25/21 documented as of this encounter
--- OUTSIDE RECORDS SUMMARY | 2022-07-06 14:47 | XMS_ITS | Encounter Summary ---
:1965 Author Organization [facility] Address [address] [place] [address] Care Team Providers Name Role Phone Elsewhere, Pcp Primary Care Provider Unavailable Reason for Referral Outpatient (Routine) - Closed Specialty Diagnoses / Procedures Referred By Contact Refer red To Contact Anesthesiology Diagnoses Anemia [facility] C.[facility], M.S.N. [address] [place] [phone] Referral ID Status Reason Start Date Expiration Date Visits Requ ested Visits Authorized [id number] Closed 04/22/2022 04/22/2023 1 1 Encounter Details Date Type Department Care Team Description 04/22/2022 Orders Only Preoperative Evaluation Shauna Rubin (Primary Dx) Center in [facility], NIKKY [place], [place] M.S.N. [address] [place] [address] [place] [phone] [place], [place] [phone] Social History Tobacco Use Types Packs/Day Years [...] or relatives? How often do you attend restorationist or Patient refused 2021 orthodox services? Do you belong to any clubs or No 05/17/2022 organizations such as restorationist groups, unions, fraternal or athletic groups, or [...] place to sleep or slept in a fci (including now)? Education Answer Date Recorded What is the highest level of school Associate degree: etta polo, 03/24/2021 you have completed or the highest technical, or vocational deshawn lopez degree you have received? Sex Assigned at Date Recorded Female 03/01/2019 10:12 AM CDT documented as of this encounter Plan of Treatment Scheduled Referrals Name Type Priority Associated Order Schedule Diagnoses Preoperative Medical Outpatient Referral Routine Anemia Expected: Evaluation - NESHA 04/22/2022, Anemia Consult Expires: (clinic) 07/23/2023 documented as of this encounter Results (ABNORMAL) Reflex anemia panel (previous CBC) (05/03/2022 10:11 AM CDT) P athologist Signature Vitamin B12 300 180 - [...] 05/03/2022 Venous) AM CDT 10:53 AM CDT [facility] - 05/03/2022 11:47 AM CDT Specimen Information: Specimen ID: [id number] Specimen Type: Blood Specimen Collection Start Date: 10:11 AM Specimen Received Date: 05/03/2022 10:53 AM Specimen ID: [id number] Specimen Type: Blood Specimen Collection Start Date: 2 10:11 AM Specimen Received Date: 05/03/2022 10:53 AM Specimen ID: [id number] Specimen Type: Blood Specimen Collection Start Date: 6/6/202 2 10:11 AM Specimen Received Date: 05/03/2022 10:53 AM Specimen ID: [id number] Specimen Type: Blood Specimen Collection Start Date: 2 10:11 AM Specimen Received Date: 05/03/2022 10:32 AM Specimen ID: [id number] Specimen Type: Blood Specimen Collection Start Date: 2 10:11 AM Specimen Received Date: 05/03/2022 11:44 AM Shauna Rubin APRN CBrittonNCristiana, M.S.N. LAB BLOOD ADD-ON Performing Organization Address City/State/ZIP Code Phon e Number [facility] - [address] [place], [place] [address] [facility] [place] [address] Laboratories-[facility] [address] documented in this encounter Visit Diagnoses Diagnosis Anemia - Primary Anemia documented in this encounter Additional Health Concerns Assessment Noted Time PHQ-9 Depression Total Score: 16 02/11/2021 12:00 AM C DT documented as of this encounter Care Teams Steward/Stewardess Second Relationship Specialty Start Date End Date Elsewhere, Pcp PCP - General Internal Medicine 12/25/21 documented as of this encounter
--- OUTSIDE RECORDS SUMMARY | 2022-07-06 14:47 | XMS_ITS | Encounter Summary ---
:1965 Author Organization [facility] Address [address] [place] [address] Care Team Providers Name Role Phone Elsewhere, Pcp Primary Care Provider Unavailable Reason for Visit Reason Comments Pre-visit Intake Encounter Details Date Type Department Care Team Description 05/12/2022 Clinical Communication Department of Cyrus Polk e-visit Intake Orthopedic Surgery [place] in [address] [place] [phone] [place], [place] [phone] (Work) [phone] Social History Tobacco Use Types Packs/Day Years [...] you attend orthodoxy or Patient refused 2021 roman catholic services? Do you belong to any clubs [...] place to sleep or slept in a alf (including now)? Education Answer Date Recorded What [...] documented as of this encounter Care Teams Intellectual Property Lawyer Relationship Specialty Start Date End Date Elsewhere, Pcp PCP - General Internal Medicine 12/25/21 documented as of this encounter
--- OUTSIDE RECORDS SUMMARY | 2022-07-06 14:47 | XMS_ITS | Encounter Summary ---
:1965 Author Organization [facility] Address [address] [place] [address] Care Team Providers Name Role Phone Elsewhere, Pcp Primary Care Provider Unavailable Encounter Details Date Type Department Care Team Description 04/21/2022 Clinical Communication Department of Cyrus Polk Orthopedic Surgery in Lilian Souza [place], [place] [address] [place] [address] 200 [place] [phone] Social History Tobacco Use Types Packs/Day Years [...] or relatives? How often do you attend sabianism or Patient refused 2021 denominational services? Do you belong to any clubs or No 05/17/2022 organizations such as sabianism groups, unions, fraternal or athletic groups, or [...] place to sleep or slept in a group home (including now)? Education Answer Date Recorded What is the highest level of school Associate degree: etta polo, 03/24/2021 you have completed or the highest technical, or vocational p narcisaram degree you have received? Sex Assigned at Date Recorded Female 03/01/2019 10:12 AM CDT documented as of this encounter Miscellaneous Notes Telephone Encounter - Alfredo Herrera O.P.A.-C. - 04/22/2022 7:17 AM CDT Called patient and discussed with her the aspiration of her shoulder on 04/14/2022 and that we would be seeing her 05/17/22 for her preop charleen as well for her surgery 0n 05/18/2022 Telephone Encounter - Deann Watkins - 04/21/2022 4:24 PM CDT Patient is calling in and states that she has been sleeping a lot, she is in a lot of pain and is wondering if she could talk to the team. She is wondering if maybe the infection didn't go away or if something else is going on . Angie [phone] documented in this encounter Plan of Treatment Not on filedocumented as of this encounter Visit Diagnoses Not on filedocumented in this encounter Additional Health Concerns Assessment Noted Time PHQ-9 Depression Total Score: 16 02/11/2021 12:00 AM C DT documented as of this encounter Care Teams Box Toe Stitcher Relationship Specialty Start Date End Date Elsewhere, Pcp PCP - General Internal Medicine 12/25/21 documented as of this encounter
--- OUTSIDE RECORDS SUMMARY | 2022-07-06 14:47 | XMS_ITS | Encounter Summary ---
:1965 Author Organization [facility] Address [address] [place] [address] Care Team Providers Name Role Phone Elsewhere, Pcp Primary Care Provider Unavailable Reason for Referral MRI/CAT/PET Scan (Routine) - Closed Specialty Diagnoses / Procedures Referred By Contact Refer red To Contact Radiology Diagnoses Painful Total Joint Arthroplasty Initial ([facility]) Alfredo Herrera [place] Procedures CT Shoulder Left without IV Contrast O.P.A.-C. [address] [place] [phone] Referral ID Status Reason Start Date Expiration Date Visits Requ ested Visits Authorized [id number] Closed 04/02/2022 04/02/2023 1 1 Reason for Visit MRI/CAT/PET Scan (Routine) - Closed Specialty Diagnoses / Procedures Referred By Contact Refer red To Contact Radiology Diagnoses Painful Total Joint Arthroplasty Initial ([facility]) Alfredo Herrera [facility] [facility] Procedures CT Shoulder Left without IV Contrast O.P.A.-C. [address] [place] [phone] Referral ID Status Reason Start Date Expiration Date Visits Requ ested Visits Authorized [id number] Closed 04/02/2022 04/02/2023 1 1 Encounter Details Date Type Department Care Team Description 04/14/2022 Hospital Encounter Department of Alfredo Herrera Painful Total Joint Radiology in A, O.P.A.-C[place]itton Arthroplasty Initial [place], [address] [place] [address] ([facility]ERLY [facility]) [place], [place] [address] [place], [place] [id number] [place], [place] [phone] (Work) [phone] Social History Tobacco Use Types Packs/Day Years [...] or relatives? How often do you attend mormon or Patient refused 2021 moravian services? Do you belong to any clubs or No 05/17/2022 organizations such as mormon groups, unions, fraternal or athletic groups, or [...] THC multivit-min/iron/folic/ Take 1 tablet by 0 [id number] (HAIR, SKIN AND mouth daily. NAILS ADVANCED [...] Name Priority Date/Time Associated Comments Diagnosis CT SHOULDER LEFT RAD - Routine 04/14/2022 11:13 Painful Total Joint Results for this WITHOUT IV (most inpatients AM CDT Arthroplasty procedure a re in CONTRAST and all Initial (HCC) the results outpatients) section. documented in this encounter Results CT Shoulder Left without [...] the prosthesis. Alfredo Kamara IMG CT PROCEDURES documented in this encounter Visit Diagnoses Diagnosis Painful Total Joint Arthroplasty Initial (HCC) documented in this encounter Additional Health Concerns Assessment Noted Time PHQ-9 Depression Total Score: 16 02/11/2021 12:00 AM C DT documented as of this encounter Care Teams Consumer Loan Processor Relationship Specialty Start Date End Date Elsewhere, Pcp PCP - General Internal Medicine 12/25/21 documented as of this encounter
--- OUTSIDE RECORDS SUMMARY | 2022-07-06 14:47 | XMS_ITS | Encounter Summary ---
:1965 Author Organization [facility] Address [address] [place] [address] Care Team Providers Name Role Phone Elsewhere, Pcp Primary Care Provider Unavailable Reason for Referral Outpatient (Routine) - Closed Specialty Diagnoses / Procedures Referred By Contact Refer red To Contact Social Work Diagnoses Pain Shoulder Left Preoperative Exam Jenna Zaldivar [place] M.D. [address] [place] [phone] Referral ID Status Reason Start Date Expiration Date Visits Requ ested Visits Authorized [id number] Closed 05/10/2022 05/10/2023 1 1 Reason for Visit Reason Comments Pre-visit Testing Orders Encounter Details Date Type Department Care Team Description 05/07/2022 Clinical Communication Department of Jam, Pre- visit Testing Orthopedic Surgery Cyrus Souza M.D. Orders in [address] [place] [phone] [place], [place] [phone] (Work) [phone] Social History Tobacco Use Types Packs/Day Years [...] or relatives? How often do you attend denominational or Patient refused 2021 confucianist services? Do you belong to any clubs or No 05/17/2022 organizations such as denominational groups, unions, fraDobango or athletic groups, or school groups? How [...] 12 months, you worried that your food Perri wong true 05/17/2022 would run out before you [...] this encounter Miscellaneous Notes Telephone Encounter - Deann Watkins - 05/07/2022 8:02 AM CDT Please sign order documented in this encounter Plan of Treatment Scheduled Referrals Name Type Priority Associated Diagnoses Order S reji Social Work - Outpatient Referral Routine Pain Shoulde r Left Expected: General consult Preoperative Exam 022 (clinic) (Approximate), Expires: 08/07/2023 documented as of this encounter Visit Diagnoses Diagnosis Pain Shoulder Left - Primary Preoperative Exam documented in this encounter Additional Health Concerns Assessment Noted Time PHQ-9 Depression Total Score: 16 02/11/2021 12:00 AM C DT documented as of this encounter Care Teams Emergency Registrar Relationship Specialty Start Date End Date Elsewhere, Pcp PCP - General Internal Medicine 12/25/21 documented as of this encounter
--- OUTSIDE RECORDS SUMMARY | 2022-07-06 14:47 | XMS_ITS | Encounter Summary ---
:1965 Author Organization [facility] Address [address] [place] [address] Care Team Providers Name Role Phone Elsewhere, Pcp Primary Care Provider Unavailable Reason for Visit Outpatient (Routine) - Closed Specialty Diagnoses / Procedures Referred By Contact Refer red To Contact Orthopedic Surgery Diagnoses Pain Shoulder Left Preoperative Exam Alfredo Herrera, [facility] OP.A.-C [address] [place] [address] Referral ID Status Reason Start Date Expiration Date Visits Requ ested Visits Authorized [id number] Closed 04/22/2022 04/22/2023 1 1 Encounter Details Date Type Department Care Team Description 05/17/2022 Office Visit Department of yCrus Polk, Raul Shou lder Left; Orthopedic Surgery in M.D. Preoperative Exam [place], [place] [address] [facility] [address] [place] [phone] Social History Tobacco Use Types Packs/Day Years [...] or relatives? How often do you attend zoroastrianism or Patient refused 2021 orthodox services? Do you belong to any clubs or No 05/17/2022 organizations such as zoroastrianism groups, unions, fraMyAppConverter or athletic groups, or school groups? How [...] AM CDT documented as of this encounter H&P Notes Cyrus Polk M.D. - 05/17/2022 9:00 AM CDT SUBJECTIVE Angie Mosquera is a pleasant 57 y.o. female who returns today for evaluation of left shoulder pain. They note continued significant shoulder pain. PHYSICAL EXAMINATION General: Patient is in no acute distress. Shoulder ROM: ?? Active elevation is 20 ?? Passive elevation is 30 ?? External rotation to 0 ?? Internal rotation to Iliac crest Strength: ?? Flexion 3 ?? Abduction 2+ ?? External rotation 2+ ?? Internal rotation 2+ Patient has pain at the end range of motion. Previous incision is well healed. There is mild deficiency of the anterolateral deltoid. IMPRESSION/REPORT/PLAN IMAGING STUDIES Radiographs demonstrate dislocated reverse #1 Dislocated left shoulder arthroplasty We discussed treatment options. We discussed operative and non-operative measures. We discussed risks, benefits, and alternatives of shoulder arthroplasty with the patient. Patient does understand the decision between hemiarthroplasty and reverse arthroplasty is an intraoperative decision. She understands that she is at high risk of recurrent instability. The patient does understand the possibility of having positive cultures. The patient also does understand if the humeral component does need to beremoved there may be such significant destruction of the shoulder that it may not be possible to place new components in the shoulder. We also reviewed postoperative rehabilitation and restrictions. Patient clearly understands the possibility of continued pain and limitation of function despite operative intervention. Patient understands the pain and function could be worse after surgery. They do understand the possibility of additional revision surgery in the future. Again, risks, benefits, and alternatives of surgery were discussed with the patient, and they do wish to proceed. Patient does not have a living will. They do wish to be resuscitated. They do consent to a blood transfusion. They do understand surgery will be done in a team setting. INFORMED CONSENT Discussed the risks, benefits, and alternatives of the procedure and of possible blood transfusion. We discussed the potential for overlapping surgery and how we manage this effectively. Discussed advance directives and the necessity of other members of the healthcare team participating in the procedure. All questions answered and consent given. We reviewed the fact that his surgery may involve the use of a manager medical writing made by a [employer] or one of my partners have collaborated to design, develop, or improve orthopedic implants, instruments, or products. Both the [facility] and the individual surgeons involved receive royalty payments from the use of those specific devices at other institutions, but no royalties or any other payments are paid for the use of those devices with any [facility] patient. The clinical rationale for the use of those devices as well as the availability and applicability of alternative devices was reviewed. He understands that the final decision for the use of a specific manager medical writing often is made at the time of surgery. All of his questions were answered; he understands and agrees with my approach to device selection and wants to proceed. documented in this encounter Plan of Treatment Not on filedocumented as of this encounter Visit Diagnoses Diagnosis Pain Shoulder Left Preoperative Exam documented in this encounter Additional Health Concerns Assessment Noted Time PHQ-9 Depression Total Score: 16 02/11/2021 12:00 AM C DT documented as of this encounter Care Teams Custody Assistant Relationship Specialty Start Date End Date Elsewhere, Pcp PCP - General Internal Medicine 12/25/21 documented as of this encounter
--- OUTSIDE RECORDS SUMMARY | 2022-07-06 14:47 | XMS_ITS | Encounter Summary ---
:1965 Author Organization [facility] Address [address] [place] [address] Care Team Providers Name Role Phone Elsewhere, Pcp Primary Care Provider Unavailable Reason for Referral Outpatient (Routine) - Closed Specialty Diagnoses / Procedures Referred By Contact Refer red To Contact Orthopedic Surgery Diagnoses Pain Shoulder Left [facility] 200 [place] [address] Referral ID Status Reason Start Date Expiration Date Visits Requ ested Visits Authorized [id number] Closed 04/22/2022 04/22/2023 1 1 Reason for Visit Reason Comments pre op orders Encounter Details Date Type Department Care Team Description 04/22/2022 Clinical Communication Department of Cyrus Polk op orders Orthopedic Surgery in Lilian Souza [place], [place] [address] [place] [address] [place] [phone] Social History Tobacco Use Types Packs/Day Years [...] you attend mormon or Patient refused 2021 sabianism services? Do you belong to any clubs or No 05/17/2022 organizations such as mormon groups, unions, fraGauss Surgical or athletic groups, or school groups? How [...] place to sleep or slept in a nursing home (including now)? Education Answer Date Recorded What is the highest level of school Associate degree: etta polo, 03/24/2021 you have completed or the highest technical, or vocational p john degree you have received? Sex Assigned at Date Recorded Female 03/01/2019 10:12 AM CDT documented as of this encounter Miscellaneous Notes Telephone Encounter - Sosa Laughlin - 04/22/2022 7:32 AM CDT Please sign orders for upcoming surgery, Thank you. documented in this encounter Plan of Treatment Scheduled Referrals Name Type Priority Associated Order Schedule Diagnoses Orthopedic Surgery Outpatient Referral Routine Pain Shou lder Left Expected: Pre Op (clinic) Preoperative Exam 022, Expires: 07/23/2023 documented as of this encounter Results Basic Metabolic Panel (05/17/2022 10:50 AM CDT) P athologist Signature Potassium, S 5.0 3.6 - [...] 05/17/2022 DTL Black/ mL/min/BSA 12:12 PM CDT [place] Comment: ----ADDITIONAL INFORMATION---- Estimated GFR calculated using [...] Organization Address City/State/ZIP Code Phon e Number [facility] - [address] [place], [place] [address] [facility] [place] [address] [facility] [address] Type and Screen (with reflex Antibody ID) (05/17/2022 10:50 AM CDT) [email or web address] Method Time Signature ABORh A Neg Not [...] BANK TEST ORDERABL ES Performing Organization Address City/State/ZIP Code Phon e Number [facility] - [address] [place], [place] [address] [facility] [place] [address] [facility] [address] [facility] (ABNORMAL) CBC with Differential, Blood (05/17/2022 10:50 AM CDT) [facility] Method Time Signature Hemoglobin 9.2 (L) 11.6 [...] Organization Address City/State/ZIP Code Phon e Number [facility] - 200 [place], [place] [address] [facility] [place] [address] [facility] 200 [facility] SARS Coronavirus 2, Molecular Detection, PCR, Varies Asymptomatic (05/17/2022 10:26 AM CDT) [facility] Method Time Signature COVID-19, Swab, 05/17/2022 DTL [...] ----ADDITIONAL INFORMATION---- This RT-PCR test using the [employer] SARS-Co V-2 Assay ( e-SENS.) performed on the [employer] Two Module System has received Emergency Use Authorization (EUA) by the U.S. Food and Drug Administration, and is modified from the corporate logistics manager's instructions with a bridging study. Performance characteristics were verifie d by [facility] in a manner consistent with CLIA requirements. Visit the CDC website: https://www.cdc.g ov/coronavirus/ for the most recent guidelines on [facility] virus testing. Fact Sheet for Healthcare Providers: https://www.fda.gov/media/813914/downloa d Fact Sheet for Patients: https://www.fda.gov/media/103812/downloa d Specimen Anatomical Collection Method Collection Time Receive d Time (Source) Location / / Volume Laterality Varies 05/17/2022 10:26 05/17/2022 (Nasopharynx) AM CDT 10:52 AM CDT Alfredo Kamara LAB MICROBIOLOGY - GENERAL O MARY Performing Organization Address City/State/ZIP Code Phon e Number [facility] - [address] [place], [place] [address] [facility] [place] [address] [facility] [address] documented in this encounter Visit Diagnoses Diagnosis Pain Shoulder Left - Primary Preoperative Exam documented in this encounter Additional Health Concerns Assessment Noted Time PHQ-9 Depression Total Score: 16 02/11/2021 12:00 AM C DT documented as of this encounter Care Teams Automotive Tire Technician Relationship Specialty Start Date End Date Elsewhere, Pcp PCP - General Internal Medicine 12/25/21 documented as of this encounter
--- OUTSIDE RECORDS SUMMARY | 2022-07-06 14:47 | XMS_ITS | Encounter Summary ---
:1965 Author Organization [facility] Address [address] [place] [address] Care Team Providers Name Role Phone Elsewhere, Pcp Primary Care Provider Unavailable Reason for Visit Outpatient (Routine) - Closed Specialty Diagnoses / Procedures Referred By Contact Refer red To Contact Diagnoses Painful Total Joint Arthroplasty Initial ([facility]) Alfredo Herrera [place] Procedures ORS US-Guided aspiration/injection O.P.A.-C. [address] [place] [address] [phone] Referral ID Status Reason Start Date Expiration Date Visits Requ ested Visits Authorized [id number] Closed 04/02/2022 04/02/2023 1 1 Encounter Details Date Type Department Care Team Description 04/14/2022 Procedure visit Department of Jey Monzon To beto Joint Orthopedic Surgery in Lilian Celaya Arthroplasty Initial [place], [place] [address] [place] [address] ([facility]) [address] [place] [phone] Social History Tobacco Use Types Packs/Day Years [...] or relatives? How often do you attend caodaism or Patient refused 2021 baptism services? Do you belong to any clubs or No 05/17/2022 organizations such as caodaism groups, unions, fraInvenergy or athletic groups, or school groups? How [...] AM CDT documented as of this encounter Procedure Notes Jey Monzon M.D. - 04/14/2022 9:00 AM CDTAssociated Order(s): ORS US-Guided aspiration/injection: L glenohumeral Post-Procedure Diagnose(s): Painful Total Joint Arthroplasty Initial (HCC) REFERRAL SOURCE: Liz Schwab.-* PROCEDURE(S) PERFORMED: Sonographically-guided left shoulder arthroplasty aspiration SUPERVISION: I directly supervised the procedure, which was performed by Carmelo Guo M.D., M.S. ([phone]). HISTORY: The patient was recently evaluated for left shoulder pain in the context of unstable reverse shoulder arthroplasty. She was referred for the above procedure for diagnostic purposes. Medications and allergies were reviewed. No procedure contraindications were identified. INFORMED CONSENT: Discussed the risks, benefits, alternatives, and the necessity of other members of the healthcare team participating in the procedure. Following denial of allergy and review of potential side effects and complications, including but not necessarily limited to infection, allergic reaction, local tissuebreakdown, systemic effects of corticosteroids, elevation of blood glucose, injury to soft tissue and/or nerves, the patient indicated understanding and agreed to proceed. All questions answered and verbal/written consent given. PROCEDURAL PAUSE: Procedural pause conducted to verify: correct patient identity, procedure to be performed, and as applicable, correct side and site, correct patient position, and special requirements. PROCEDURE DETAILS: The use of direct ultrasound visualization of the needle (rather than a non- guided injection) was indicated to ensure accuracy, thereby avoiding inadvertent intramuscular, intraligament or intratendinous placement and osteochondral or neurovascular injury. Additionally, the increased accuracy of placement may increase clinical effectiveness and will allow higher diagnostic specificity when evaluatingeffectiveness of this injection. The area was prepped with chlorhexidine. A sterile ultrasound transducer cover and sterile ultrasound gel were used. Machine: Videobot Transducer: 6-15 MHz linear transducer. Patient position: Semi-recumbent Localization process: Prior to the procedure the anterior, superior, and posterior shoulder was scanned for potential fluid collections. The glenohumeral joint was superiorly dislocated as noted on therecent radiographs. A fluid collection was noted in the subdeltoid region anteriorly that we targeted for the procedure. Approach: In plane with the transducer, lateral/distal to medial/proximal Local anesthesia: Skin and subcutaneous tissues en route to the target site were anesthetized using 2 mL of preservative-free 1% lidocaine and a 25-gauge, 2-inch needle using a single pass. No lidocaine was injected into the fluid space. Aspiration: Following local anesthesia, a 19-gauge, 2-inch was advanced under direct sonographic guidance into the anterior subdeltoid fluid collection. Thereafter, 20 mL of orange-red, translucent fluid fluid was aspirated. Samples were sent to the laboratory for cell analysis and cultures per the referring provider's request. POST-PROCEDURAL CARE: The patient tolerated the procedure well without complications. She was advised to ice for improved pain control and avoid submersion of the area for the next 2 days to reduce therisk of infection. Advised to avoid vigorous activity with the injected limb for the rest of the day, but after that activity will be as tolerated. She will follow up with Dr. Polk regarding the aspiration results. PATIENT EDUCATION: Education was discussed at today's appointment. A learning needs assessment was performed. Primary learner: Angie Mosquera Barriers to learning: None Preferred language: Thai Learning preferences include: Seeing and doing. Discussed: Post-procedure instructions Learner response: Learner voiced understanding. PPE use information for possible contact monitoring: PPE used during visit: Provider was wearing a mask and eye protection throughout entire session. Patient was wearing a mask throughout entire session. DIAGNOSIS: #1 Left shoulder pain context of unstable reverse shoulder arthroplasty, status post sonographically-guided left shoulder arthroplasty diagnostic aspiration Shoulder site - L glenohumeral : aspiration only Date/Time: 04/14/2022 9:30 AM Performed by: Jey Monzon M.D. Authorized by: Alfredo Herrera O.P.A.-C. Care team members present 1. Jey Monzon M.D. 2. Carmelo Guo M.D., M.S. 3. Priya Blue, L.A.T., A.T.C. 4. Pete Kaye, L.A.T., A.T.C. PROCEDURE DETAILS Procedure Location shoulder Shoulder site: L glenohumeral Procedure performed: aspiration only Ultrasound image guidance used to localize target, identify at risk structures, and dynamically usedto direct therapy to the target. Image(s) acquired and saved. Procedural Medication The following medications were administered at the target site(s) Local anesthetic: 2 [...] was done as applicable. The procedural time-out was conducted prior to performing the procedure and confirmed in a procedural pause. PRE-PROCEDURE DETAILS Appropriate hand hygiene, gown, cap, mask, protective eyewear, sterile gloves, skin preparation, sterile drape, and strict aseptic technique were utilized as applicable for the procedure. Site preparation: chlorhexidine/alcohol Images have been archived in [employer]: click the 'Dept Filter' button in [employer], then the 'Clear (ShowAll)' button, then OK. documented in this encounter Plan of Treatment Not on filedocumented as of this encounter Procedures Procedure Name Priority Date/Time Associated Diagnosis Comme nts BACTERIA CULT, Routine 04/14/2022 9:35 AM Results for this AEROBE/ANAEROBE+CARRIE CDT procedur e are in C the results section. CELL COUNT AND Routine 04/14/2022 9:35 AM Results for this DIFFERENTIAL, BF CDT procedure a re in the results section. CA ARTHCS ASP/INJ Routine 04/14/2022 9:30 AM Painful Total Aliza nt Results for this MJR JT W US CDT Arthroplasty Initial procedu re are in (HCC) the results section. documented in this encounter Results Bacteria Cult, Aerobe / Anaerobe+Susc (04/14/2022 9:35 AM CDT) AdXpose Method Time Signature Bacteria Cult, No growth 04/28/2022 DTL Aerobe/Anaerob after 14 11:02 AM CDT e+Susc days of incubation. Specimen Anatomical Collection Method Collection Time Receive d Time (Source) Location / / Volume Laterality Synovial Fluid, 04/14/2022 9:35 AM 2021 Left Shoulder CDT 10:18 AM CDT Comment: Specimen Source Site: Aspirate Narrative [facility] - 04/28/2022 11:02 AM CDT Bacterial Culture: Received Bactec aerob ic and Bactec anaerobic bottles Alfredo Kamara LAB MICROBIOLOGY - GENERAL O RDERABLES Performing Organization Address City/State/ZIP Code Phon e Number [facility] - [address] [place] [phone] [facility] [place] [place] [address] [facility] 200 [facility] Cell Count and Differential, Body Fluid (04/14/2022 9:35 AM CDT) AdXpose Method Time Signature Fluid Type Right 04/14/2022 [...] Its performance characteri stics were determined by [facility] in a manner co nsistent with CLIA [...] / Volume Laterality Fluid 04/14/2022 9:35 AM 2 CDT 10:14 AM CDT Alfredo Kamara LAB BODY FLUIDS AND STOOLS O RDERABLES Performing Organization Address City/State/ZIP Code Phon e Number [facility] - [address] [place], [place] [address] [place] [address] [facility] [address] [place] ARTHCS ASP/INJ MJR JT W US (04/14/2022 [...] Arthroplasty Initial (HCC) documented in this encounter Administered Medications Inactive Administered Medications - up to 3 most recent administrations Medication Order MAR Action Action Date Dose Rate Site lidocaine (PF) 10 mg/mL (1 %) Given 04/14/2022 9:30 AM CDT 2 mL injection 2 mL (XYLOCAINE) 2 mL, infiltration, One-Time Injection, Starting on Tue04/14/22 at 0930, For 1 dose documented in this encounter Additional Health Concerns Assessment Noted Time PHQ-9 Depression Total Score: 16 02/11/2021 12:00 AM C DT documented as of this encounter Care Teams Disability Insurance Claim Examiner Relationship Specialty Start Date End Date Elsewhere, Pcp PCP - General Internal Medicine 12/25/21 documented as of this encounter
--- OUTSIDE RECORDS SUMMARY | 2022-07-06 14:47 | XMS_ITS | Encounter Summary ---
:1965 Author Organization [facility] Address [address] [place] [address] Care Team Providers Name Role Phone Elsewhere, Pcp Primary Care Provider Unavailable Encounter Details Date Type Department Care Team Description 05/03/2022 Hospital Encounter Department of Laboratory Shauna Rubin, Anemia Medicine and Pathology, [facility] [address] [place] [phone] (Wo rk) Social History Tobacco Use Types Packs/Day Years [...] or relatives? How often do you attend jainism or Patient refused 2021 jehovah's witness services? Do you belong to any clubs or No 05/17/2022 organizations such as jainism groups, unions, fraternal or athletic groups, or [...] THC multivit-min/iron/folic/ Take 1 tablet by 0 [id number] (HAIR, SKIN AND mouth daily. NAILS ADVANCED [...] Name Priority Date/Time Associated Diagnosis Comme nts REFLEX ANEMIA PANEL Routine 05/03/2022 10:11 AM Anemia R esults for this (PREVIOUS CBC) CDT procedure are in the results section. documented in this encounter Results (ABNORMAL) Reflex anemia panel [...] Venous) AM CDT 10:53 AM CDT Narrative [facility] - 05/03/2022 11:47 AM CDT Specimen Information: Specimen ID: [id number] Specimen Type: Blood Specimen Collection Start Date: 10:11 AM Specimen Received Date: 05/03/2022 10:53 AM Specimen ID: [id number] Specimen Type: Blood Specimen Collection Start Date: 10:11 AM Specimen Received Date: 05/03/2022 10:53 AM Specimen ID: [id number] Specimen Type: Blood Specimen Collection Start Date: 10:11 AM Specimen Received Date: 05/03/2022 10:53 AM Specimen ID: [id number] Specimen Type: Blood Specimen Collection Start Date: 10:11 AM Specimen Received Date: 05/03/2022 10:32 AM Specimen ID: [id number] Specimen Type: Blood Specimen Collection Start Date: 10:11 AM Specimen Received Date: 05/03/2022 11:44 AM Shauna Rubin APRN, C.N.P., M.S.N. LAB BLOOD ADD-ON Performing Organization Address City/State/ZIP Code Phon e Number [facility] - [address] [place], [place] [address] [facility] [place] [address] [facility] [address] documented in this encounter Visit Diagnoses Diagnosis Anemia documented in this encounter Additional Health Concerns Assessment Noted Time PHQ-9 Depression Total Score: 16 02/11/2021 12:00 AM C DT documented as of this encounter Care Teams Strapper Operator Relationship Specialty Start Date End Date Elsewhere, Pcp PCP - General Internal Medicine 12/25/21 documented as of this encounter
--- OUTSIDE RECORDS SUMMARY | 2022-07-06 14:47 | XMS_ITS | Encounter Summary ---
:1965 Author Organization [facility] Address [address] [place] [address] Care Team Providers Name Role Phone Elsewhere, Pcp Primary Care Provider Unavailable Encounter Details Date Type Department Care Team Description 05/11/2022 Clinical Communication Department of Cyrus Polk Orthopedic Surgery in Lilian Souza [place], [place] [address] [place] [address] 200 [place] [address] [phone] Social History Tobacco Use Types Packs/Day Years [...] or relatives? How often do you attend jew or Patient refused 2021 faith services? Do you belong to any clubs or No 05/17/2022 organizations such as jew groups, unions, fraternal or athletic groups, or [...] place to sleep or slept in a longterm (including now)? Education Answer Date Recorded What is the highest level of school Associate degree: etta polo, 03/24/2021 you have completed or the highest technical, or vocational p john degree you have received? Sex Assigned at Date Recorded Female 03/01/2019 10:12 AM CDT documented as of this encounter Miscellaneous Notes Telephone Encounter - Amadeo Pisano - 05/11/2022 11:11 AM CDT Patient called wanting to know if an order can be created for patient to obtain a 3-wheel power scooter following surgery on May 18. Please advise, thank you documented in this encounter Plan of Treatment Not on filedocumented as of this encounter Visit Diagnoses Not on filedocumented in this encounter Additional Health Concerns Assessment Noted Time PHQ-9 Depression Total Score: 16 02/11/2021 12:00 AM C DT documented as of this encounter Care Teams Bodybuilder Relationship Specialty Start Date End Date Elsewhere, Pcp PCP - General Internal Medicine 12/25/21 documented as of this encounter
--- OUTSIDE RECORDS SUMMARY | 2022-07-06 14:47 | XMS_ITS | Encounter Summary ---
:1965 Author Organization [facility] Address 200 [place] [address] Care Team Providers Name Role Phone Elsewhere, Pcp Primary Care Provider Unavailable Reason for Visit Reason Comments Discharge Planning Discharge Planning Encounter Details Date Type Department Care Team Description 05/06/2022 Clinical Communication Department of Kaushik Portillo Di scharge Planning Orthopedic Surgery R.N. (Discharge in [place] [address] [facility] Planning) [place], [place] [address] [place] [phone] [place], [place] [phone] (Work) [phone] Social History Tobacco Use Types Packs/Day Years [...] or relatives? How often do you attend jain or Patient refused 2021 adventist services? Do you belong to any clubs or No 05/17/2022 organizations such as jain groups, unions, fraternal or athletic groups, or [...] or the highest technical, or vocational p rogram degree you have received? Sex Assigned at Date Recorded Female 03/01/2019 10:12 AM CDT documented as of this encounter Miscellaneous Notes Telephone Encounter - Kaushik Portillo R.N. - 05/06/2022 3:59 PM CDT Phone call concerning dismissal plans after Angie Mosquera's scheduled 05/18/2022 Left Total Shoulder Arthroplasty with Dr. Polk. Spoke with the patient. She lives alone. The patient plans on returning home. The role of the caregiver and electric lift truck driver will be filled by the patient's adult child, Rafal and the patient's friend, Curly. She understood that she needs to have someone in her house, for safety, the first week at home, after surgery. Her son lives next door and her friend lives on the other side of her. The patient was not clear if she will have these to people with her or not. Some answers were vague. I reminded her twice about having someone with her for safety. I am particularly alerted to this, due to her history of falling. I encourage Ortho.Bogger Operator to contact this patient, prior to surgery, to assess her for vulnerablity. She did not say if her friend or son will be available in the hospital. Dr. Polk's team have been informed regarding my concern for this patient. The patient does not use a CPAP machine. The patient takes ASA 325 mg PO. I asked her to call Dr. Polk's office to clarify the stop date of the ASA for prior to surgery. She could not remember if it was seven or ten days prior. Questions answered. The following information was provided: driving and mobility restrictions. The phone call recipient was able to teach back; they addressed and discussed concerns. The following references were used: nursing clinical judgement. documented in this encounter Plan of Treatment Not on filedocumented as of this encounter Visit Diagnoses Not on filedocumented in this encounter Additional Health Concerns Assessment Noted Time PHQ-9 Depression Total Score: 16 02/11/2021 12:00 AM C DT documented as of this encounter Care Teams Grab Jack Man Relationship Specialty Start Date End Date Elsewhere, Pcp PCP - General Internal Medicine 12/25/21 documented as of this encounter
--- OUTSIDE RECORDS SUMMARY | 2022-07-06 14:48 | XMS_ITS | Encounter Summary ---
:1965 Author Organization [facility] Address [address] [place] [address] Care Team Providers Name Role Phone Elsewhere, Pcp Primary Care Provider Unavailable Encounter Details Date Type Department Care Team Description 02/26/2022 Clinical Communication [facility] Janet Sarmiento, [address] [facility].Ph.T. [place], [place] [phone] (Work) [phone] Social History Tobacco Use Types Packs/Day Years [...] or relatives? How often do you attend congregational or Patient refused 2021 baptist services? Do you belong to any clubs or No 05/17/2022 organizations such as congregational groups, unions, fraternal or athletic groups, or [...] place to sleep or slept in a intermediate (including now)? Education Answer Date Recorded What [...] documented as of this encounter Care Teams Reeler Operator Relationship Specialty Start Date End Date Elsewhere, Pcp PCP - General Internal Medicine 12/25/21 documented as of this encounter
--- OUTSIDE RECORDS SUMMARY | 2022-07-06 14:48 | XMS_ITS | Encounter Summary ---
:1965 Author Organization [facility] Address [address] [place] [address] Care Team Providers Name Role Phone Elsewhere, Pcp Primary Care Provider Unavailable Encounter Details Date Type Department Care Team Description 03/05/2022 Clinical Communication Pharmacy Prior Auth Ben Chino RO M.D. [phone] Social History Tobacco Use Types Packs/Day Years [...] or relatives? How often do you attend mormonism or Patient refused 2021 confucianism services? Do you belong to any clubs or No 05/17/2022 organizations such as mormonism groups, unions, fraternal or athletic groups, or [...] this encounter Miscellaneous Notes Telephone Encounter - Shanna Sullivan - 03/05/2022 5:08 AM CDT Images from the original note were not included. The patient's health insurer has denied prior authorization for DOXYCYCLINE HYC DR 100MG TAB A quick view of the denial reason is in this communication message. The patient has not tried and failed the preferred alternative(s). To view the denial letter: 1. Go to Snapshot 2. Go to the purple Medications box 3. Click on the blue Prior Authorizations link 4. Under Denied, click on the blue medication link to open and view the attachment. As the prescriber your options are: ??? Appeal the decision to the insurer directly (see denial letter for how to appeal). ??? Write a new Rx for an alternative medication therapy. ??? Release the Rx to the pharmacy so the patient can pay out of pocket if they desire. To Release Rx: Open this encounter, go to Meds & Orders, click on the medication, and click the blue ???Release Rx?? button. PLEASE NOTE: If the ???Release Rx?? button is not visible, the Rx has already been released to the pharmacy. If you have questions, please reply via QuickNote to Camelia CINTRON. Thank you, The OPPA Team documented in this encounter Plan of Treatment Not on filedocumented as of this encounter Visit Diagnoses Not on filedocumented in this encounter Additional Health Concerns Assessment Noted Time PHQ-9 Depression Total Score: 16 02/11/2021 12:00 AM C DT documented as of this encounter Care Teams Audit Analyst Relationship Specialty Start Date End Date Elsewhere, Pcp PCP - General Internal Medicine 12/25/21 documented as of this encounter
--- OUTSIDE RECORDS SUMMARY | 2022-07-06 14:48 | XMS_ITS | Encounter Summary ---
:1965 Author Organization [facility] Address [address] [place] [address] Care Team Providers Name Role Phone Elsewhere, Pcp Primary Care Provider Unavailable Reason for Visit Reason Comments Medication Question Encounter Details Date Type Department Care Team Description 03/08/2022 Clinical Communication Department of Jose Polk Orthopedic Surgery Cyrus Souza M.D. in [place], [facility] [place], [place] [address] [place] [address] [place], [place] [phone] (Work) [phone] Social History Tobacco Use Types Packs/Day Years [...] or relatives? How often do you attend sikh or Patient refused 2021 nondenominational services? Do you belong to any clubs or No 05/17/2022 organizations such as sikh groups, unions, fraternal or athletic groups, or [...] this encounter Miscellaneous Notes Telephone Encounter - Melissa Mcdonald M.D. - 03/08/2022 12:40 PM CDT Called to discuss. Patient has a pain contract and just received her refill, therefore we will deferthe refill of oxycodone previously ordered. Telephone Encounter - Radha Suh - 03/08/2022 11:22 AM CDT Kylie, pharmacist at [facility] in [place] calls. She is wondering if you indeed want to fill it. Please call her back at [phone] Regarding the oxycodone script sent today---patient had received 120 tablets of oxycodone on February 24 provided by another provider. documented in this encounter Plan of Treatment Not on filedocumented as of this encounter Visit Diagnoses Not on filedocumented in this encounter Additional Health Concerns Assessment Noted Time PHQ-9 Depression Total Score: 16 02/11/2021 12:00 AM C DT documented as of this encounter Care Teams Weaving Teacher Relationship Specialty Start Date End Date Elsewhere, Pcp PCP - General Internal Medicine 12/25/21 documented as of this encounter
--- OUTSIDE RECORDS SUMMARY | 2022-07-06 14:48 | XMS_ITS | Encounter Summary ---
:1965 Author Organization [facility] Address [address] [place] [id number] Care Team Providers Name Role Phone Elsewhere, Pcp Primary Care Provider Unavailable Reason for Visit Reason Comments Medication Problem Encounter Details Date Type Department Care Team Description 03/01/2022 Clinical Communication Department of [facility] Cyrus Souza M.D. in [place], [facility] [place], [place] [address] [place] [id number] [place], [place] [phone] (Work) [phone] Social History Tobacco Use Types Packs/Day Years [...] or relatives? How often do you attend gnosticist or Patient refused 2021 roman catholic services? Do you belong to any clubs or No 05/17/2022 organizations such as gnosticist groups, unions, fraternal or athletic groups, or [...] Telephone Encounter - Cyrus Polk M.D. - 03/08/2022 10:14 AM CDT Please see below Thank you for all your help Telephone Encounter - Radha Suh - 03/03/2022 12:04 PM CDT PIPER. Received fax from [employer] 03-03-22 indicating the doxycycline [facility] 100 mg tab is approved through 11/27/2022. Telephone Encounter - Cyrus Polk M.D. - 03/02/2022 7:45 AM CDT Please see below Thank you Telephone Encounter - Radha Suh - 03/01/2022 3:36 PM CDT Regina, pharmacist working for the insurance company calls regarding the doxycycline hyclate (DORYX) 100 mg EC tablet [[id number]] Script. This is not in their formulary. She has several questions to ask to consider approving this. Please call Regina back [phone], ext [phone] Reference # [id number] documented in this encounter Plan of Treatment Not on filedocumented as of this encounter Visit Diagnoses Not on filedocumented in this encounter Additional Health Concerns Assessment Noted Time PHQ-9 Depression Total Score: 16 02/11/2021 12:00 AM C DT documented as of this encounter Care Teams Hazard Mitigation Officer Relationship Specialty Start Date End Date Elsewhere, Pcp PCP - General Internal Medicine 12/25/21 documented as of this encounter
--- OUTSIDE RECORDS SUMMARY | 2022-07-06 14:48 | XMS_ITS | Encounter Summary ---
:1965 Author Organization [facility] Address [address] [place] [address] Care Team Providers Name Role Phone Elsewhere, Pcp Primary Care Provider Unavailable Reason for Referral Medication Prior Authorization - Denied Specialty Diagnoses / Procedures Referred By Contact Refer red To Contact Michael Chino M.D. Referral ID Status Reason Start Date Expiration Date Visits Requ ested Visits Authorized [id number] Denied 1 1 Encounter Details Date Type Department Care Team Description 02/26/2022 - Hospital Encounter [facility], Shoulder Joint Disorder Left; 02/27/2022 Hospital, [facility] C[facility] Souza M.D. Pain Shoulder Left [facility] [address] [facility], [place], [place] Floor [phone] [address] [facility] [phone] [place], [place] (Work) [phone] Social History Tobacco Use [...] or relatives? How often do you attend yazidism or Patient refused 2021 nondenominational services? Do you belong to any clubs or No 05/17/2022 organizations such as yazidism groups, [employer], [employer] or athletic groups, or school groups? How [...] 12 months, you worried that your food Someedwin [employer]ong true 05/17/2022 would run out before [...] place to sleep or slept in a senior living (including now)? Education Answer Date Recorded What is the highest level of school Associate degree: etta polo, 03/24/2021 you have completed or the highest technical, or vocational p john degree you have received? Sex Assigned at Date Recorded Female 03/01/2019 10:12 AM CDT documented as of this encounter Last Filed Vital Signs Vital Sign Reading Time Taken Comments Blood Pressure 122/81 02/27/2022 7:42 AM CDT Pulse 77 02/27/2022 7:42 AM CDT Temperature 36.5 ??C (97.7 ??F) 02/27/2022 7:42 AM CDT Respiratory Rate 14 02/27/2022 7:42 AM CDT Oxygen Saturation 99% 02/27/2022 7:42 AM CDT Inhaled Oxygen Concentration - - Weight 68.7 kg (151 lb 7.3 oz) 02/26/2022 9:05 PM CDT Height 151 cm (4' 11.45) 02/26/2022 8:47 AM CDT Body Mass Index 30.13 02/26/2022 8:47 AM CDT documented in this encounter Discharge Summaries Michael Chino M.D. - 02/26/2022 3:08 PM CDT INPATIENT DISCHARGE SUMMARY BRIEF OVERVIEW Discharge Provider: Cyrus Polk M.D. Primary Care Providers: Elsewhere, Pcp (General) No address on file Primary Care Provider Phone Number: None Primary Care Provider Fax Number: None Admission Date: 02/26/2022 Discharge Date: 02/27/2022 PRINCIPAL DIAGNOSIS Left Shoulder Pain DISCHARGE DISPOSITION Home or Self Care [1] DETAILS OF HOSPITAL STAY REASON FOR ADMISSION Left Shoulder Antibiotic Spacer Resection and Implantation of Reverse Total Shoulder Arthroplasty HOSPITAL COURSE The patient was taken to the operating room and underwent the above procedure by Dr. Polk. The patient tolerated the procedure well and there were no complications. Postoperatively the patient recovered uneventfully in the PACU and was then transferred to the general orthopedic floor. Physical therapy assisted the patient with mobility. The patient was dismissed from the hospital once tolerating a general diet, ambulating, and the pain was well controlled with oral pain medications. CONDITION AT DISCHARGE Stable Discharge instructions were provided to the patient [...] THC multivit-min/iron/folic/ Take 1 tablet by 0 [id number] (HAIR, SKIN AND mouth daily. NAILS ADVANCED ORAL) ondansetron ODT Take 1 tablet by 0 01/16/2010 (ZOFRAN-ODT) 8 mg mouth 3 (three) times disintegrating tablet a day as needed for nausea. oxyCODONE (ROXICODONE) Take 10 mg by mouth 0 01/28 10 mg IR tablet every 4 (four) hours as needed for pain. polyethylene glycol Take 17 g by mouth [...] for muscle spasms. Muscle spasms valACYclovir (VALTREX) Take 500 mg by mouth 0 500 mg tablet daily. zonisamide (ZONEGRAN) Take 300 mg by mouth 8 01/27 100 mg capsule 2 (two) times a day. doxycycline hyclate Take 1 tablet (100 mg 28 tablet 0 02/2603/12/2022 (DORYX) 100 mg EC tablet total) by mouth 2 (two) times a day for 14 days. oxyCODONE (ROXICODONE) 5 Take 1-2 tablets 20 tablet 0 02/2605/18/2022 mg immediate release (5-10 mg total) by tabletIndications: Acute mouth every 4 (four) Pain Exception hours as needed for severe pain or score 7-10 of 10 (for pain not controlled by Tylenol.) Indication: Acute Pain Exception. documented as of this encounter Progress Notes Navya Gibson M.D. - 02/27/2022 8:05 AM CDT Orthopedic Service: [facility] Admission Day: 02/26/2022 SUBJECTIVE POD1. She is overall doing well. Some minor pain and discomfort because of her shoulder immobilizer moving while in bed. Otherwise, her cultures are currently negative and her labs appear nonconcerning. OBJECTIVE Vitals: 02/27/22 0510 02/27/22 0524 02/27/22 0742 02/27/22 0743 BP: 122/81 Patient Position: Sitting Pulse: 72 77 Heart Rate: Temp: 36.5 ??C Resp: 16 14 Height: Weight: SpO2: 94% 99% TempSrc: Oral Pain Score: 8 10 - Worst possible pain Pain Location: Shoulder PHYSICAL EXAMINATION General: Alert and oriented x 3, not in acute distress, follows commands. Lungs: Non-labored respirations on room air. MSK: Postoperative dressing clean, dry, and intact . Nerve block wearing off and operative extremityable to fire deltoid, wrist flexors/extensors, finger flexors/extentors, and finger adductors/abductors. Sensation intact. Extremity warm and well-perfused. LABORATORY STUDIES (past 24 hours) Lab Results Component Value Date WBC 8.2 02/26/2022 HGB 8.8 (L) 02/26/2022 HCT 28.5 (L) 02/26/2022 MCV 83.6 02/26/2022 PLT 275 02/26/2022 Lab Results Component Value Date NA 139 02/26/2022 CL 107 02/26/2022 CREATININE 0.79 02/26/2022 BUN 14 02/26/2022 ANIONGAP 8 02/26/2022 GLUCOSE 124 02/26/2022 CALCIUM 8.5 (L) 02/26/2022 Lab Results Component Value Date SEDRATE 8 02/25/2022 Lab Results Component Value Date CRP <3.0 02/25/2022 ASSESSMENT / PLAN #1 S/p L antibiotic spacer resection to RSA on 02/26/[address] 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 I discussed she needs to address the fitting of the immobilizer with PT. We are hopeful she can DC today on PO antibiotics. PLAN: ?? Activity: NWB in soft sling. No shoulder, wrist, or hand ROM. ?? Antibiotics: perioperative ancef x 24 hours. ?? Blood: Hgb 9.5 preoperatively. Asymptomatic. Will check CBC in AM. ?? Dressing: clean, dry, intact. ?? Cultures: pathology negative for acute inflammation. Cultures pending. ?? Diet: ADAT towards general diet ?? Imaging: obtained postoperatively. Implants are in satisfactory position. ?? Drains: none ?? DVT Prophylaxis: none indicated from an upper extremity perspective. Will resume ASA 325 mg POD1 ?? Pain: Multimodal pain regimen ?? Disposition: Anticipate discharge to home. ?? Consults: OT. ?? Follow-up: we will see the patient back in 6 weeks with new x-rays or have x- rays sent to us at that time. Active Issues # Class 1 Obesity (BMI 30 to <35). stable Navya Gibson M.D. For any questions or concerns from 6 am until 6 pm, please page the [facility] pager at [phone] For urgent matters from 6 pm until 6 am, please page [facility] at [phone] Michael Chino M.D. - 02/26/2022 3:03 PM CDT Orthopedic Service: [facility] Hospital Admission Day: 02/26/2022 SUBJECTIVE Patient seen postoperatively on the general care floor. Doing well. OBJECTIVE Vitals: 02/26/22 1433 02/26/22 1440 02/26/22 1445 02/26/22 1500 BP: 145/79 139/81 130/73 Pulse: 71 64 64 Heart Rate: 72 64 74 Temp: 36.4 ??C Resp: 16 13 13 Height: Weight: SpO2: 100% 97% 94% TempSrc: Oral Pain Score: 0 - No pain Pain Location: PHYSICAL EXAMINATION General: Alert and oriented x 3, not in acute distress, follows commands. Lungs: Non-labored respirations on room air. MSK: Postoperative dressing clean, dry, and intact . Effects of nerve block still present. Extremitywarm and well-perfused. LABORATORY STUDIES (past 24 hours) Lab Results Component Value Date WBC 5.2 02/25/2022 HGB 9.5 (L) 02/25/2022 HCT 30.6 (L) 02/25/2022 MCV 83.6 02/25/2022 PLT 284 02/25/2022 Lab Results Component Value Date NA 138 02/25/2022 CL 104 02/25/2022 CREATININE 0.87 02/25/2022 BUN 18 02/25/2022 ANIONGAP 12 02/25/2022 GLUCOSE 79 02/25/2022 CALCIUM 8.8 02/25/2022 Lab Results Component Value Date SEDRATE 8 02/25/2022 Lab Results Component Value Date CRP <3.0 02/25/2022 ASSESSMENT / PLAN #1 S/p L antibiotic spacer resection to RSA on 02/26/[address] 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 Will monitor pain overnight and if discharge postoperative day 1 pending satisfactory pain control. PLAN: ?? Activity: NWB in soft sling. No shoulder, wrist, or hand ROM. ?? Antibiotics: perioperative ancef x 24 hours. ?? Blood: Hgb 9.5 preoperatively. Asymptomatic. Will check CBC in AM. ?? Dressing: clean, dry, intact. ?? Cultures: pathology negative for acute inflammation. Cultures pending. ?? Diet: ADAT towards general diet ?? Imaging: obtained postoperatively. Implants are in satisfactory position. ?? Drains: none ?? DVT Prophylaxis: none indicated from an upper extremity perspective. Will resume ASA 325 mg POD1 ?? Pain: Multimodal pain regimen ?? Disposition: Anticipate discharge to home. ?? Consults: OT. ?? Follow-up: we will see the patient back in 6 weeks with new x-rays or have x- rays sent to us at that time. Active Issues # Class 1 Obesity (BMI 30 to <35). stable Michael Chino M.D. For any questions or concerns from 6 am until 6 pm, please page the [employer] pager at [phone] For urgent matters from 6 pm until 6 am, please page [facility] at [phone] Clemente Buck, Pharm.D., R.Ph. - 02/26/2022 9:17 AM CDT Images from the original note were not included. Admission Medication History Note Adherence issues: Patient states she does not regularly take her daily Arnuity inhaler. Medication list source: Patient, and pharmacy fill history Medication related information: Patient takes oxycodone 10 mg QID. Patient states she will not need the clindamycin lotion while inpatient. Prior to Admission Medications Med List Status: In Progress Set By: Clemente Buck, Pharm.D., R.Ph. at 02/26/2022 8:34 AM Taking? Last Dose Informant Start Date End Date LT acetaminophen (TYLENOL) 500 mg capsule 02/26/2022 01/01/22 -- Take 2 capsules (1,000 mg total) by mouth every 6 (six) hours as needed for pain. Start the day of surgery. albuterol (PROVENTIL HFA,VENTOLIN HFA) 90 mcg/actuation inhaler Past Week Self -- -- Inhale 2 puffs every 6 (six) hours as needed for wheezing or shortness of breath. Arnuity Ellipta 100 mcg/actuation diskus inhaler Past Week 01/28/22 -- Inhale 1 puff daily. aspirin 325 mg tablet 02/19/2022 02/18/21 -- Take 1 tablet (325 mg total) by mouth daily. Patient taking differently: Take 325 mg by mouth every evening. Pt holding for surgery atorvastatin (LIPITOR) 80 mg tablet 02/25/2022 02/17/21 -- Take 1 tablet (80 mg total) by mouth at bedtime. benzonatate (TESSALON PERLES) 100 mg capsule Past Week 03/19/19 -- Take 100 mg by mouth 3 (three) times a day as needed for cough. buPROPion XL (WELLBUTRIN XL) 150 mg 24 hr tablet 02/25/2022 02/04/21 -- Take 150 mg by mouth every morning. xitarpqnmu-cvwldvkgvqsrn-kzbg (ESGIC) 50-325-40 mg per tablet Past Week 02/27/21 -- Take 1 tablet by mouth every 6 (six) hours as needed for migraine. cetirizine (ZyrTEC) 10 mg tablet 02/25/2022 Self -- -- Take 10 mg by mouth 2 (two) times a day. cholecalciferol (VITAMIN D3) 125 mcg (5,000 Unit) tablet 02/25/2022 Self -- -- Take 125 mcg by mouth every morning. clindamycin (CLEOCIN T) 1 % external solution Past Week 02/22/22 -- Apply 1 application topically 2 (two) times a day. Apply to face. cyanocobalamin, vitamin B-12, 2,500 mcg lozenge 02/25/2022 01/28/22 -- Take 1 tablet by mouth daily. diazePAM (VALIUM) 10 mg tablet 02/25/2022 Self 02/14/19 -- Take 10 mg by mouth 2 (two) times a day. diclofenac sodium (VOLTAREN) 1 % gel Past Month 01/01/22 -- Apply 2-4 g topically 4 (four) times a day. diphenhydrAMINE (BENADRYL) 25 mg tablet 02/25/2022 -- -- Take 75 mg by mouth at bedtime. esomeprazole (NexIUM) [address] capsule 02/25/2022 Self 11/19/17 -- Take 40 mg by mouth 2 (two) times a day before breakfast and dinner. FLUoxetine (PROzac) 40 mg capsule 02/25/2022 Self -- -- Take 80 mg by mouth every morning. furosemide (LASIX) 40 mg tablet 02/24/2022 Self 02/08/19 -- Take 40 mg by mouth 2 (two) times a day. ipratropium-albuteroL (DUONEB) 0.5-2.5 mg/3 mL nebulizer solution Past Week 01/16/21 -- Inhale 3 mL by nebulization 4 (four) times a day as needed for shortness of breath or wheezing. lamoTRIgine (LaMICtal) 200 mg tablet 02/25/2022 02/08/19 -- Take 200 mg by mouth 2 (two) times a day. MAG-G 27 mg magnesium (500 mg) tablet 02/25/2022 02/16/19 -- Take 1 tablet by mouth at bedtime. meclizine (ANTIVERT) 25 mg tablet Past Week 01/19/21 -- Take 25 mg by mouth every 6 (six) hours as needed for dizziness. medical cannabis capsule 02/25/2022 Self -- -- Take 1-4 capsules by mouth 2 (two) times a day as needed (pain). THC component: 10 mg CBD component: 0 mg medical cannabis oil inhalation 02/25/2022 Self -- -- Inhale as needed (pain). Vape THC: 5 mg dose - per pt medical cannabis oil oral Past Week Self -- -- Take 1 each by mouth as needed (pain). 1 spray as needed. 5 mg THC multivit-min/iron/folic/ztr438 (HAIR, SKIN AND NAILS ADVANCED ORAL) 02/25/2022 -- -- Take by mouth. ondansetron ODT (ZOFRAN-ODT) 8 mg disintegrating tablet Past Week Self 01/16/10 -- Take 1 tablet by mouth 3 (three) times a day as needed for nausea. oxyCODONE (ROXICODONE) 10 mg IR tablet 02/26/2022 02/24/22 -- Take 10 mg by mouth every 4 (four) hours as needed for pain. polyethylene glycol (MIRALAX) 17 gram/dose oral powder Past Week Self 04/11/17 -- Take 17 g by mouth as needed for constipation. pregabalin (LYRICA) 300 mg capsule 02/25/2022 09/18/20 -- Take 600 mg by mouth 2 (two) times a day. QUEtiapine (SEROquel) 50 mg tablet 02/25/2022 08/19/20 -- Take 50 mg by mouth at bedtime. rOPINIRole (REQUIP) 2 mg tablet 02/25/2022 01/28/22 -- Take 2 mg by mouth at bedtime. tiZANidine (ZANAFLEX) 4 mg tablet 02/25/2022 Self 03/27/19 -- Take 4-8 mg by mouth every 8 (eight) hours as needed for muscle spasms. Muscle spasms valACYclovir (VALTREX) 500 mg tablet 02/25/2022 Self 02/22/18 -- Take 500 mg by mouth daily. zonisamide (ZONEGRAN) 100 mg capsule 02/25/2022 02/22/19 -- Take 300 mg by mouth 2 (two) times a day. documented in this encounter Consult Notes Jey Harper P.T., D.P.T. - 02/27/2022 11:36 AM CDT Physical Therapy Inpatient Evaluation/Treatment By co-signing [...] and treat orthopedic rehab; shoulder Onset Date: 02/26/22 Payor: MEDICARE / Plan: MEDICARE A AND [...] (HCC) ??? Nicotine Dependence Unspecified ??? Other Intermediate Current Drug Therapy ??? Direct Infection Of Left Shoulder In Infectious And Parasitic Diseases Classified Elsewhere (HCC) ??? Pain Shoulder Left Past Surgical History: Procedure Laterality Date ??? ABDOMINOPLASTY ??? ARTHROPLASTY - RESECTION SHOULDER Left 12/30/2021 Procedure: ARTHROPLASTY RESECTION SHOULDER.; Surgeon: Cyrus Polk M.D.; Location: [facility] ??? BACK SURGERY 1998 lumbar fusion [...] LIGATION reversed 1993 History of Present Illness: Patient is status post left reverse total shoulder arthroplasty Prior Function/Occupational Profile Dominant Hand: Right Lives With: Alone Receives Help From: flow floor attendant, Family, Friend(s) ADL Assistance: Required assistance ADL Assistance Comments: Gets help from CUSTOMER PRICING MANAGER for her bath/shower and for her meals IADL/Homemaking Assistance: Required assistance IADL/Homemaking Assistance Comments: Gets help for housecleaning Driving: Independent Driving Comments: takes her cane and medical alert with her. Occupational Role: On disability Occupational Role Comments: Previously worked at a [employer] Prior Mobility/Functional Transfers Level of [place]: Modified independent Previous Transfer/Mobility Assistance Comments: Patient reports that she was indpendent ambulating at home and in the community. Per PT/OT notes she has fallen - she states she hasn't. She states she sometimes uses the 4 wheeled walker, takes the cane with her outside. Gait Devices/Wheelchair Used: Cane Gait Devices/Wheelchair Used Comments: Used a four-wheeled walker in the past so she could carry things in her four-wheeled walker basket; has been using a single point cane with difficulty due to it slipping away from her Home Equipment Gait Devices Owned: Four-wheeled walker, Cane Other DME Equipment : Other (Comment) (Sleeps in recliner chair) Home Living Type of Home: Apartment Home Layout: One level Home Access: Level entry Bathroom Shower/Tub: Tub/shower unit Tub/shower unit location: Main floor Bathroom Toilet: Standard Bathroom Accessibility: Yes How Accessible: Accessible via walker Dominant Hand: Right Family/Caregiver Present: No Patient/Caregiver Goals: Speed walking Patient Comments: Patient supine in bed upon therapist arrival, left sitting edge of bed; patient agreeable to therapy. Precautions Weight Bearing Status: Nonweightbearing left upper extremity Other Precautions: No shoulder elbow or wrist range of motion, no dangling Fall Risk (65 and older) Fall in [...] of bed elevated Sit to Stand Transfers Transfer Surface: Bed, Toilet/Commode Transfer Equipment: Gait belt Level of Assistance: Modified Independent Assessment/Delivery: Assessed Comments: Patient is independent with sit to and from stand transfers Stand to Sit Transfers Transfer Surface: Bed, Toilet/Commode Transfer Equipment: Gait belt Level of Assistance: Modified independent Assessment/Delivery: Assessed Gait Assessment/Training Distance (m): 80 m Surface: Even, Smooth/hard Device: Gait belt # of Assistants: 1 Level of Assistance: Supervision/Set-up Assessment of Gait: Patient ambulates with increased lateral trunk sway, and no left upper extremityswing due to sling Stairs/Curb # Stairs: 3 Rails: 1 Device: Gait belt # of Assistants: 1 Level of Assistance: Supervision/Set-up Stair Navigation Pattern-Ascending: Reciprocal pattern Stair Navigation Pattern-Descending: Reciprocal pattern Quality of Stair Negotiation: Patient demonstrates the ability to safely navigate stairs. Patient educated on how to perform stair navigation when the handrail is on the same side as the surgical arm. Patient understands and demonstrates the ability to navigate the stairs sideways facing the rail with step to pattern Patient and/or caregiver instructed and demonstrated understanding in the following: -Positioning in supine and sitting using folded towels under elbow -Positioning for sleeping to ensure appropriate support of surgical arm -Donning/doffing sling for exercise, axillary hygiene, and donning/doffing shirt (verbally reviewed only, as patient declined dressing in session -Proper fitting and adjustment of the shoulder immobilizer -Donning/doffing and fitting of shower sling Patient's nurse was contacted and patient's status was discussed Patient was left Sitting edge of bed at end of session with call light in reach, all needs met and questions answered. Contact monitoring: PPE used during therapy: Therapist was wearing the following PPE throughout entire session: surgicalmask, eye protection and gloves Patient was wearing a mask during therapy session: yes Outcome Measures -[facility] Inpatient Short Form: AM-[facility] Basic Mobility (V.2) How much help from another person do you currently need???If the patient hasn't done an activity recently, how much help from another person do you think he/she would need if he/she tried? 1. Turning from your back to your side while in a flat bed without using bedrails?: None 2. Moving from lying on your back to sitting on the side of a flat bed without using bedrails?: None 3. Moving to and from a bed to a chair (including a wheelchair)?: None 4. Standing up from a chair using your arms (e.g., wheelchair, or bedside chair)?: None 5. To walk in hospital room?: None 6. Climbing 3-5 steps with a railing?: None AM-[facility] Basic Mobility (V.2) Raw Score: 24 AM-[facility] Basic Mobility (V.2) Standardized Score: 57.68 Interpretation: Clinicians answer the -[facility] Inpatient Short Form based on observed patient activityand/or clinical judgement (ie. patient can be scored without physically performing each activity) Based on scoring guidelines using the raw score value: Those going to home had an average score of 20.1 Those going home with home care had an average score of 17.9 Those going to SNF had an average score of 14 Those going to IRF had an average score of 13.6 Those going to a LTAC had an average score of 11.5 Assessment Discharge Therapy Needs - PT: No further skilled therapy Skilled therapy can include physical therapy provided by home health, outpatient clinic, or a post-acute facility. The location of these services is determined by the patient's care team in partnershipwith patient/family. Clinical Impression of today's session: Currently, patient presents with impairments including decreased strength and range of motion left upper extremity resulting in the following functional deficits: Difficulty completing bed mobility, sit to and from stand transfers, ambulation, stair navigation. Patient demonstrates the ability to safely ambulate and navigate stairs. In session, reviewed donning and doffing of daily sling and shower sling, and patient verbalizes understanding of how to teach caregiver how to help with these tasks. Significant reminders were required in order to have patient keep her surgical shoulder still. By the end of the session the patient has a better understanding of what it means to limit active range of motion of the shoulder, however it is questionable whether or not she will abide by these restrictions. Education described above. Patient is appropriate for discharge home. Physical therapy treatment is medically necessary to restore and optimize function, maximize safety, facilitate discharge to home, and to teach and educate the patient and/or caregivers. Rehab potential: Ms. Mosquera has Good potential to achieve established physical therapy goals withinthe time frame outlined below. Progress: All PT goals achieved Tiered PT Evaluation Codes: Comorbid Conditions: Other (Comment) (See active problem list for more details) Examination elements: 3 Clinical Presentation: Stable Clinical Decision Making: Low complexity clinical decision making Functional Goals: PT Inpatient Goals PT Goal #1: Patient and/or caregiver will teach back the post-op shoulder program. PT Goal #1 Status: Achieved PT Goal #2: Patient and helper will be able to teach back with demonstration the seated edge of bed technique with the use of pillows to support the arm for shirt, shower sling and daily sling donning and doffing. PT Goal #2 Status: Achieved PT Goal #3: Patient/caregiver will be comfortable with the post op exercises given today per MD protocol so these can be performed safely when discharged PT Goal #3 Status: Achieved Plan Patient agrees with the plan of care and goals. Treatment Plan: Plan: Discontinue PT PT Frequency: One-time visit PT Inpatient Duration : Until goals are met or hospital discharge Requires Inpatient Follow-Up: No PT Plan Comments: Patient does not require follow-up as all acute therapy goals are met Treatment interventions may include: Treatment/Interventions: Therapeutic exercise, Therapeutic functional activity Billing: Time Spent with Patient Evaluations PT Eval - Low Complexity: 8 min Therapeutic Interventions Therapeutic Activity (min): 24 min Time Tracking Total Timed Units (min): 24 min Total Treatment Time (min): 32 min Jey Harper P.T., D.P.T. documented in this encounter Nursing Notes Catalina Mccloud R.N. - 02/27/2022 12:02 PM CDT Patient was able to be discharged to home with transport provided by and friend. All paperwork was gone over and discussed with patient prior to discharge. Patient was made aware of how to acquire additional pain medications as well as her lifting restrictions. Prescriptions were sent and filled at the [facility] pharmacy. Catalina Mccloud R.N. - 02/27/2022 12:00 PM CDT Shift Goals: Clinical Goals for the Shift: 1) Manage pain Identify possible barriers to meeting goals/advancing plan of care: chronic pain End of Shift Summary: Patient was able to be discharged with transport provided by a friend. documented in this encounter OR Notes Op Note - Cyrus Polk M.D. - 02/26/2022 9:22 AM CDT STAFF: Cyrus Polk M.D. RESIDENT: Michael Chino M.D. 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 A wheelchair van operator first responder was necessary for one or more the following: Opening, exposure, and visualization during the case, maintaining hemostasis, wound closure. PROCEDURES: Left shoulder removal antibiotic spacer, implantation reverse arthroplasty, bone grafting glenoid. FINDINGS As expected. COMPLICATIONS None. OPERATIVE NOTE NARRATIVE Patient brought to the operating room where she underwent satisfactory anesthesia, carefully padded position, beach chair position. The affected upper extremity sterilely prepped and draped in the usual manner. Anterior skin incision was made. Skin was incised as well as fat. Deltopectoral interval was identified. Cephalic vein was absent. She had a massive amount of scarring throughout the entire shoulder region. With great meticulous care, the inferior capsular release was performed with great care to protect the axillary nerve as well as the plane between the deltoid and underlying posterior remnants of the cuff. The humerus was dislocated. The spacer was removed. The proximal bone quality was noted to be poor. There was some fragmentation of the proximal humerus. The spacer removed. The tissue appearance was benign. Broach placed. Glenoid inspected. She did have significant glenoid deficiency, however, an augmented base plate could be placed with approximately 70% contact with [place] bone. The more superior aspect of the glenoid was bone grafted with bone graft from the bone bank. There was excellent fixation of the base plate with the trial components, excellent stability and range of motion. Real glenosphere placed. Real stem packed in place with an excellent tight fit with the trial tr ay, excellent stability and range of motion. Real tray placed. Shoulder reduced. Glenohumeral motionvery smooth and stable. Shoulder thoroughly irrigated multiple times during the course of the procedure. There was no rotator cuff to repair over the anterior aspect of her shoulder. The deltopectoral interval was closed with multiple #2 stitches. Subcutaneous tissue with 2-0 Monocryl and running Monocryl placed in the skin. Dermabond, Steri-Strips, sterile dressing applied. Patient arm placed in a sling, brought to recovery in stable condition. TPR: 4, Removal of antibiotic spacer, implantation of reverse arthroplasty, [id number] Cyrus Polk M.D. CT CT Job ID: [id number] documented in this encounter Plan of Treatment Not on filedocumented as of this encounter Procedures Procedure Name Priority Date/Time Associated Comments Diagnosis REMOTE OXIMETRY Routine 02/26/2022 7:58 MONITORING CONT. PM CDT REMOTE OXIMETRY Routine 02/26/2022 7:58 MONITORING CONT. PM CDT CBC WITH DIFFERENTIAL, Routine 02/26/2022 3:47 Re sults for B PM CDT this procedure are in the results section. ALANINE Routine 02/26/2022 3:47 Results for AMINOTRANSFERASE (ALT), PM CDT this procedure S/P are in the results section. BASIC METABOLIC PANEL, Routine 02/26/2022 3:47 Re sults for S/P PM CDT this procedure are in the results section. ADULT OXYGEN THERAPY Routine 02/26/2022 2:52 PM CDT DX SHOULDER LEFT 1 VIEW RAD - Timed 02/26/2022 2:47 R esults for (for specific PM CDT this procedure dates/times) are in the results section. BACTERIA CULT, Routine 02/26/2022 1:00 Results fo r AEROBE/ANAEROBE+SUSC PM CDT this pr ocedure are in the results section. BACTERIA CULT, Routine 02/26/2022 1:00 Results fo r AEROBE/ANAEROBE+SUSC PM CDT this pr ocedure are in the results section. BACTERIA CULT, Routine 02/26/2022 1:00 Results fo r AEROBE/ANAEROBE+SUSC PM CDT this pr ocedure are in the results section. SURGICAL PATHOLOGY, Routine 02/26/2022 1:00 Shoulder Joint Res ults for [facility] PM CDT Disorder Left this procedure are in the results section. ARTHROPLASTY 02/26/2022 11:52 Shoulder Joint REPLACEMENT TOTAL AM CDT Disorder Left SHOULDER documented in this encounter Results ALT (Alanine Aminotransferase) (02/26/2022 3:47 PM CDT) Patholo gist Method Time Signature Alanine 11 7 - 45 02/26/2022 DTL Aminotransferase U/L 4:53 PM CDT (ALT), S Specimen Anatomical Collection Method Collection Time Receive d Time (Source) Location / / Volume Laterality Blood (Blood, 02/26/2022 3:47 PM 02/27/20 4:29 Venous) CDT PM CDT Michael Chino M.D. LAB BLOOD ADD-ON Performing Organization Address City/State/ZIP Code Phon e Number [facility] - [address] [place], [place] [address] [facility] [place] [address] [facility] [address] (ABNORMAL) Basic Metabolic Panel (02/26/2022 3:47 PM CDT) P athologist Signature Potassium, S 4.4 3.6 - 5.2 02/26/2022 DTL mmol/L 4:53 PM CDT Sodium, S 139 135 - 145 02/26/2022 DTL mmol/L 4:53 PM CDT Chloride, S 107 98 - 107 02/26/2022 DTL mmol/L 4:53 PM CDT Bicarbonate, S 24 22 - 29 02/26/2022 DTL mmol/L 4:53 PM CDT Anion Gap 8 7 - 15 02/26/2022 DTL 4:53 PM CDT BUN (Blood Urea 14 6 - 21 02/26/2022 DTL Nitrogen), S mg/dL 6:27 PM CDT Creatinine, S 0.79 0.59 - 1.04 02/26/2022 DTL mg/dL 6:27 PM CDT eGFR-Non 83 >=60 02/26/2022 DTL Black/ mL/min/BSA 6:27 PM CDT [place] Comment: ----ADDITIONAL INFORMATION---- Estimated GFR calculated using the 2009 CKD_EPI creatinine equation. eGFR-Black/ >90 >=60 mL/min/BSA 2021 6:27 PM CDT DTL Comment: ----ADDITIONAL INFORMATION---- Estimated GFR calculated using the 2009 CKD_EPI creatinine equation. Calcium, Total, S 8.5 (L) 8.6 - 10.0 mg/dL 02/26/2022 4:53 PM CDT DTL Glucose, S 124 70 - 140 mg/dL 02/26/2022 4:53 PM CDT D TL Specimen Anatomical Collection Method Collection Time Receive d Time (Source) Location / / Volume Laterality Blood (Blood, 02/26/2022 3:47 PM 02/27/20 4:29 Venous) CDT PM CDT Michael Chino M.D. LAB BLOOD ADD-ON Performing Organization Address City/State/ZIP Code Phon e Number [facility] - [address] [place], [place] [address] [facility] [place] [address] [facility] [address] [facility] (ABNORMAL) CBC with Differential, Blood (02/26/2022 3:47 PM CDT) [facility] gist Method Time Signature Hemoglobin 8.8 (L) 11.6 - 02/26/2022 DTL 15.0 g/dL 4:23 PM CDT Hematocrit 28.5 (L) 35.5 - 02/26/2022 DTL 44.9 % 4:23 PM CDT Erythrocytes 3.41 (L) 3.92 - 02/26/2022 DTL 5.13 4:23 PM CDT x10(12)/L MCV 83.6 78.2 - 02/26/2022 DTL 97.9 fL 4:23 PM CDT RBC Distrib Width 16.8 (H) 12.2 - 02/26/2022 DTL 16.1 % 4:23 PM CDT Platelet Count 275 157 - 371 02/26/2022 DTL x10(9)/L 4:23 PM CDT Leukocytes 8.2 3.4 - 9.6 02/26/2022 DTL x10(9)/L 4:23 PM CDT Neutrophils 7.19 (H) 1.56 - 02/26/2022 DTL 6.45 4:23 PM CDT x10(9)/L Lymphocytes 0.83 (L) 0.95 - 02/26/2022 DTL 3.07 4:23 PM CDT x10(9)/L Monocytes 0.13 (L) 0.26 - 02/26/2022 DTL 0.81 4:23 PM CDT x10(9)/L Eosinophils 0.05 0.03 - 02/26/2022 DTL 0.48 4:23 PM CDT x10(9)/L Basophils <0.03 0.01 - 02/26/2022 DTL 0.08 4:23 PM CDT x10(9)/L Specimen Anatomical Collection Method Collection Time Receive d Time (Source) Location / / Volume Laterality Blood (Blood, 02/26/2022 3:47 PM 02/27/20 4:14 Venous) CDT PM CDT Michael Chino M.D. LAB BLOOD ADD-ON Performing Organization Address City/State/ZIP Code Phon e Number [facility] - [address] [place] [phone] [facility] [place] [address] [facility] [address] [facility] DX Shoulder Left 1 View (02/26/2022 2:47 PM CDT) Anatomical Region Laterality Modality Upper Extremity, Shoulder, Musculoskeletal RST LOS, Left Computed Radiography Musculoskeletal ARZ LOS, Muskuloskeletal FLA LOS Specimen (Source) Anatomical Collection Method Collection Time Re ceived Time Location / / Volume Laterality 02/26/2022 3:16 PM CDT Impressions 02/26/2022 3:17 PM CDT Left reverse TSA. Negative for PO purpos es. Narrative 02/26/2022 3:17 PM CDT EXAM: ??DX SHOULDER LEFT 1 VIEW Procedure Note Sonia Wesley M.D. - 02/26/2022For matting of this note might be different from the original. EXAM: DX SHOULDER LEFT 1 VIEW IMPRESSION: Left reverse TSA. Negative for PO purpos es. Michael Chino M.D. IMG DIAGNOSTIC IMAGING PROCE DURES Bacteria Cult, Aerobe / Anaerobe+Susc (02/26/2022 1:00 PM CDT) [facility] gist Method Time Signature Bacteria Cult, No growth 03/12/2022 DTL Aerobe/Anaerob after 14 2:02 PM CDT e+Susc days of incubation. Specimen Anatomical Collection Method Collection Time Receive d Time (Source) Location / / Volume Laterality Shoulder, Left 02/26/2022 1:00 PM 022 1:41 CDT PM CDT Comment: Specimen Source Site: Tissue 1 Narrative [facility] - 03/12/2022 2:02 PM CDT Bacterial Culture: Placed in Bactec aero bic and Bactec anaerobic bottles Cyrus Polk M.D. LAB MICROBIOLOGY - GENERAL O MARY Performing Organization Address City/[facility] Phon e Number [facility] - [address] [place], [place] [address] [place], [place] [address] [place] [address] [address] [facility] Bacteria Cult, Aerobe / Anaerobe+Susc (02/26/2022 1:00 PM CDT) [facility] Method Time Signature Bacteria Cult, No growth 03/12/2022 DTL Aerobe/Anaerob after 14 2:02 PM CDT e+Susc days of incubation. Specimen Anatomical Collection Method Collection Time Receive d Time (Source) Location / / Volume Laterality Shoulder, Left 02/26/2022 1:00 PM 022 1:38 CDT PM CDT Comment: Specimen Source Site: Tissue 3 [facility] - 03/12/2022 2:02 PM CDT Bacterial Culture: Placed in Bactec aero bic and Bactec anaerobic bottles Cyrus Polk M.D. LAB MICROBIOLOGY - GENERAL Lebron HERNANDEZ Performing Organization Address City/[facility]/ZIP Code Phon e Number [facility] - [address] [place], [place] [address] [place], [place] [id number] [place] [address] [address] [facility] Bacteria Cult, Aerobe / Anaerobe+Susc (02/26/2022 1:00 PM CDT) [facility] Method Time Signature Bacteria Cult, No growth 03/12/2022 DTL Aerobe/Anaerob after 14 2:02 PM CDT e+Susc days of incubation. Specimen Anatomical Collection Method Collection Time Receive d Time (Source) Location / / Volume Laterality Shoulder, Left 02/26/2022 1:00 PM 04/01/2 022 1:36 CDT PM CDT Comment: Specimen Source Site: Tissue 2 Narrative [facility] - [facility] - 03/12/2022 2:02 PM CDT Bacterial Culture: Placed in Bactec aero bic and Bactec anaerobic bottles Cyrus Polk M.D. LAB MICROBIOLOGY - GENERAL O RDERABLES Performing Organization Address City/State/ZIP Code Phon e Number [facility] - [address] [place] [phone] [facility] [place] [address] [facility] [address] [facility] Surgical Pathology, Frozen Lab (02/26/2022 1:00 PM CDT) Component Value Ref Test Analysis Performed Pathologis t Range Method Time At Signature 03/01/2022 M[facility] 3:43 PM CDT Participated in Guerda Camacho 03/01/2022 Mo M.D. 3:43 PM CDT Interpretation -Pathology Resident Report Yimi Balderas M.D., Ph.D. 03/01/2022 M[facility] electronically 3:43 PM CDT signed by I verify that I have examined all relevant slides/materials for the specimen(s) and rendered or confirmed the diagnosis. Frozen A. ??Synovium, left shoulder, excision: ??Granulation tissue 03/01/2022 M[facility] Intraoperative with predominantly chronic inflammation. 3:43 PM CDT Report Signed by Yimi Balderas M.D., Ph.D. 02/27/2022 4:19 PM Gross Description A. ??Received fresh labeled left shoulder is a 1.5 x 1.5 x 03/01/2022 M[facility] 0.4 cm aggregate of pink-campbell, irregular soft tissue. ??All 3:43 PM CDT submitted for frozen and permanent sections. ??Grossed by Nan Ledezma M.S., PA([facility]). Block Summary A Left shoulder 03/01/2022 M[facility] A1 Left shoulder-frozen 3:43 PM CDT Interpretation FINAL DIAGNOSIS 03/01/2022 M[facility] 3:43 PM CDT A. ??Synovium, left shoulder, excision: ??Granulation tissue with chronic inflammation; negative for acute inflammation. Specimen (Source) Anatomical Collection Method Collection Time Re ceived Time Location / / Volume Laterality Tissue (Shoulder, 02/26/2022 1:00 PM Left) CDT Narrative This result has an attachment that is no t available. Cyrus Polk M.D. LAB SURG PATH ORDERABLES Performing Organization Address City/State/ZIP Code Phon e Number [facility] - [address] [place], [place] [address] [facility] [place] [address] [facility] [address] documented in this encounter Visit Diagnoses Diagnosis Shoulder Joint Disorder Left Pain Shoulder Left documented in this encounter Administered Medications Inactive Administered Medications - up to 3 most recent administrations Medication Order MAR Action Action Date Dose Rate Site acetaminophen tablet 1,000 mg Given 02/27/2022 11:04 AM CDT 1,00 0 mg (TYLENOL) 1,000 mg, oral, Every 6 hours, First dose on Tue02/26/22 at 1700 Given 02/27/2022 4:39 AM CDT 1,000 mg Given 02/26/2022 10:38 PM CDT 1,000 mg acetaminophen tablet 1,000 mg (TYLENOL) Given 02/26/2022 10:48 AM CDT 1,000 mg 1,000 mg, oral, Once, On Tue02/26/22 at 1045, For 1 dose, Pre-Op atorvastatin tablet 80 mg (LIPITOR) Given 02/26/2022 8:41 PM CDT 80 mg 80 mg, oral, Daily at bedtime, First dose on Tue02/26/22 at 2100 buPROPion XL 24 hr tablet 150 mg (WELLBUTRIN Given 12/2021 8:25 AM CDT 150 mg XL) 150 mg, oral, Every morning, First dose on Tue02/27/22 at 0900, Swallow whole. Do NOT crush, chew, or split tablet. calcium carbonate chewable tablet Given 02/27/2022 10: 07 AM CDT 400 mg of calcium 400 mg of calcium (TUMS) 400 mg of calcium, oral, Every 2 hour PRN, indigestion, Starting on Tue02/26/22 at 1451, Doses listed are in mg of elemental calcium. Take with food. 500 mg calcium carbonate contains 200 mg of elemental calcium. ceFAZolin in dextrose (iso-os) IVPB 2 New Bag 02/27/2022 4:39 AM CDT 2 g 200 mL/hr g (ANCEF) 2 g, intravenous, at 200 mL/hr, Administer over 30 Minutes, Every 8 hours, First dose on Tue02/26/22 at 2100, For 2 doses, Start within 8 hours of last IV dose., Drug Monitoring Program: Pharmacist to adjust medication dosing based on indication and drug clearance factors., Indications: Prophylaxis, surgical New Bag 02/26/2022 8:44 PM CDT 2 g 200 mL/hr D5W infusion 10-250 mL/hr, intravenous, As needed, Medications Inco mpatible with 0.9% NaCL, Starting on Tue02/26/22 at 2106, Infuse at the same rat e as the piggyback until tubing clears or up to a volume of 20 mL pre and post infusion for medications incompatible with 0.9% NaCL. Use 100 mL bag then disca rd. diphenhydrAMINE capsule 25 mg (BENADRYL) Given 02/27/2022 6:06 AM CDT 25 mg 25 mg, oral, Every 6 hours, First dose on Tue02/26/22 at 1800 Given 02/26/2022 6:30 PM CDT 25 mg diphenhydrAMINE capsule 25 mg (BENADRYL) 25 mg, oral, Every 6 hours PRN, itching, allergies, Starting on 02/27/22 at 0815 fentaNYL injection 25 mcg (SUBLIMAZE) Given 02/26/2022 3:08 PM CDT 25 mcg 25 mcg, intravenous, Every 2 min PRN, For pain 4 or greater (maximum 100 mcg). If max dose of Fentanyl is reached and if pain is greater than 4, discontinue Fentanyl: give Hydromorphone, Starting on Tue02/26/22 at 1436, PACU (only) fentaNYL injection 50 mcg (SUBLIMAZE) Given 02/26/2022 11:36 AM CDT 50 mcg 50 mcg, intravenous, Every 2 min PRN, sedation, Starting on Tue02/26/22 at 1042, Pre-Op, Up to maximum total dose of 200 mcg FLUoxetine capsule 80 mg (PROzac) Given 02/27/2022 8:25 AM CDT 80 mg 80 mg, oral, Daily, First dose on 02/27/22 at 0900, FLUoxetine orderable was interchanged for FLUoxetine tablet/capsule furosemide tablet 40 mg (LASIX) Given 02/27/2022 8:25 AM CDT 40 mg 40 mg, oral, 2 times daily, First dose on Tue02/26/22 at 1700 Given 02/26/2022 5:14 PM CDT 40 mg HYDROmorphone (PF) injection 0.2 mg Given 02/27/2022 4:33 AM CDT 0.2 mg (DILAUDID) 0.2 mg, intravenous, Every 2 hour PRN, severe pain or score 7-10 of 10, Starting on Tue02/27/22 at 0411, For 1 dose lactated ringers New Bag 02/27/2022 1:31 AM CDT 75 mL/hr 75 mL/hr 75 mL/hr, intravenous, Continuous, Starting on Tue02/26/22 at 1500, Until patient has 500cc po intake New Bag 02/26/2022 4:09 PM CDT 75 mL/hr 75 mL/hr lactated ringers New Bag 02/26/2022 11:29 AM CDT 20 mL/hr 20 mL/hr 20 mL/hr, intravenous, Continuous, Starting on Tue02/26/22 at 1045, Pre-Op lactated ringers Continued from OR 02/26/2022 2:37 PM CDT 20 mL/hr 20 mL/hr 20 mL/hr, intravenous, Continuous, Starting on Tue02/26/22 at 1330, PACU & Post-Op lamoTRIgine tablet 200 mg (LaMICtaL) Given 02/27/2022 8:25 AM CDT 200 mg 200 mg, oral, 2 times daily, First dose on Tue02/26/22 at 2100 Given 02/26/2022 8:41 PM CDT 200 mg midazolam (PF) injection 1 mg (VERSED) Given 02/26/2022 11:37 AM CDT 1 mg 1 mg, intravenous, Once, On Tue02/26/22 at 1045, For 1 dose, Pre-Op NaCl 0.9% infusion 10-250 mL/hr, intravenous, As needed, Be tween Consecutive Piggyback Medications, Starting on Tue02/26/22 at 2106, Infuse at the same rat e as the piggyback until tubing clears or up to a volume of 20 mL . Select for IV medication administration when no maintenance IV available or when IV medication s are not compatible with maintenance fluid. NaCl 0.9% infusion 10-250 mL/hr, intravenous, As needed, Post Medications (Hazardous/Low Fluid Volume), Starting on Tue02/26/22 at 2106, Infuse at the same rate as the medication until tubing cleared of medication, then discard. ondansetron (PF) injection 4 mg (ZOFRAN) Given 02/26/2022 12:03 PM CDT 4 mg 4 mg, intravenous, Once, On Tue02/26/22 at 1215, For 1 dose, Pre-Op oxyCODONE IR tablet 10 mg (ROXICODONE) Given 02/26/2022 3:04 PM CDT 10 mg 10 mg, oral, Once as needed, For pain 4 or greater, Starting on Tue02/26/22 at 1436, For 1 dose, PACU (only) oxyCODONE IR tablet 10 mg (ROXICODONE) Given 02/26/2022 12:03 PM CDT 10 mg 10 mg, oral, Once as needed, moderate pain or score 4-6 of 10, severe pain or score 7-10 of 10, Starting on Tue02/26/22 at 1154, For 1 dose, Pre-Op oxyCODONE IR tablet 10 mg (ROXICODONE) Given 02/27/2022 7:43 AM CDT 10 mg 10 mg, oral, Every 3 hours PRN, severe pain or score 7-10 of 10, Starting on Tue02/26/22 at 1818 Given 02/27/2022 4:33 AM CDT 10 mg Given 02/27/2022 1:30 AM CDT 10 mg oxyCODONE IR tablet 10 mg (ROXICODONE) 10 mg, oral, Every 3 hours PRN, moderate pain or score 4-6 of 10, Starting on 02/27/22 at 0907, If patient is >75 consider changing to 2.5-5mg scale oxyCODONE IR tablet 15 mg (ROXICODONE) Given 02/27/2022 11:04 AM CDT 15 mg 15 mg, oral, Every 3 hours PRN, severe pain or score 7-10 of 10, Starting on 02/27/[address] tablet 40 mg (PROTONIX) Given 02/27/2022 6:10 AM CDT 40 mg 40 mg, oral, 2 times daily before breakfast and dinner, First dose on Tue02/26/22 at 1600, pantoprazole 40 mg oral twice daily was interchanged for esomeprazole 20 or 40 mg oral twice daily Swallow whole. Do NOT crush, chew, or split tablet. Given 02/26/2022 5:14 PM CDT 40 mg pregabalin capsule 600 mg (LYRICA) Given 02/27/2022 8:25 AM CDT 600 mg 600 mg, oral, 2 times daily, First dose on Tue02/26/22 at 2100 Given 02/26/2022 8:41 PM CDT 600 mg QUEtiapine tablet 50 mg (SEROquel) Given 02/26/2022 8:42 PM CDT 50 mg 50 mg, oral, Daily at bedtime, First dose on Tue02/26/22 at 2100 rOPINIRole tablet 2 mg (REQUIP) Given 02/26/2022 8:41 PM CDT 2 mg 2 mg, oral, Daily at bedtime, First dose on Tue02/26/22 at 2100 sennosides-docusate sodium 8.6-50 mg per Given 02/27/2022 8:25 A M CDT 1 tablet tablet 1 tablet (SENOKOT-S) 1 tablet, oral, 2 times daily, First dose on Tue02/26/22 at 2100, Do not give if patient has diarrhea. Given 02/26/2022 8:41 PM CDT 1 tablet zonisamide capsule 300 mg (ZONEGRAN) Given 02/27/2022 8:25 AM CDT 300 mg 300 mg, oral, 2 times daily, First dose on Tue02/26/22 at 2100, Swallow whole. Do NOT crush, chew or open capsule. Given 02/26/2022 8:41 PM CDT 300 mg documented in this encounter Active and Recently Administered Medications Times are shown in CDT. Scheduled Medication Order 02/25/2022 02/26/2022 02/27/2022 acetaminophen tablet 1,000 mg (TYLENOL) 6549 (Given - Provider: Tanesha Butt)0367 (Given - Provider: Tanesha Butt) 0430 (Given - Provider: Lauren Mckeon RBetsy)1106 (Given - Provider: Christiano ArcherBetsy) 1,000 mg, oral, Every 6 hours, First dose on Tue02/26/22 at 1700 acetaminophen tablet 1,000 mg (TYLENOL) (COMPLETED) 104 (Given - Provider: Donna Mercado R.N.) 1,000 mg, oral, Once, On Tue02/26/22 at 1045, For 1 dose, Pre-Op atorvastatin tablet 80 mg (LIPITOR) 2040 (Given - Provider: Tanesha Butt) 80 mg, oral, Daily at bedtime, First dose on Tue02/26/22 at 2100 buPROPion XL 24 hr tablet 150 mg (WELLBUTRIN XL) 08 (Given - Provider: Catalina Mccloud R.N.) 150 mg, oral, Every morning, First dose on Tue02/27/22 at 0900, Swallow whole. Do NOT crush, chew, or split tablet. ceFAZolin in dextrose (iso-os) IVPB 2 g (ANCEF) (COMPLETED) 2043 (New Bag - Provider: Tanesha Butt) 043 (New Bag - Provider: Lauren rosa RBetsy) 2 g, intravenous, at 200 mL/hr, Administ er over 30 Minutes, Every 8 hours, First dose on Tue02/26/22 at 2100, For 2 doses, Start within 8 hours of last IV dose., Drug Monitoring Program: Pharmacist to ad just medication dosing based on indicati on and drug clearance factors., Indications: Prophylaxis, surgical ceFAZolin injection 2,000 mg (ANCEF) (COMPLETED) 1247 (Given - Provider: Tejal Gonzalez R.N.) 2,000 mg (rounded from 1,717.5 mg = 25 m g/kg ? 68.7 kg Dosing weight), intravenous, Once, On Tue02/26/22 at 1100, For 1 dose, Intra-Op, Preoperatively within 1 hour prior to surgical incision. Give in a ddition to vancomycin per Ortho ID. If n eeded, reconstitute vial per package insert instructions. See IVAG for administration guidelines. , Drug Monitoring Program: Pharmacist to adjust medication dosin g based on indication and drug clearance factors., Indications: Prophylaxis, surgical diphenhydrAMINE capsule 25 mg (BENADRYL) (CANCELED) 1829 (Given - Provider: Tanesha Butt) 0011 (Not Given - Provider: Lauren garcia R.NBritton - Reason: Contraindicated)0606 (Given - Provider: Lauren Mckeon R.NBritton) 25 mg, oral, Every 6 hours, First dose on Tue02/26/22 at 1800 FLUoxetine capsule 80 mg (PROzac) 0825 (Given - Provider: Catalina Mccloud RBrittonNBritton) 80 mg, oral, Daily, First dose on 01/19 at 0900, FLUoxetine orderable was interchanged for FLUoxetine tablet/capsule fluticasone furoate 100 mcg/actuation inhaler 1 puff (ARNUITY EL LIPTA) 0830 (Not Given - Provider: Catalina Mccloud R.N. - Reason: Patient/family refused) 1 puff, inhalation, Daily, First dose on 02/27/22 at 0900, Rinse mouth with water after use to reduce aftertaste and incidence of candidiasis. Do not swallow. furosemide tablet 40 mg (LASIX) 1714 (Given - Pr ovider: Tanesha Butt) 0825 (Given - Provider: Catalina Mccloud RBrittonNBritton) 40 mg, oral, 2 times daily, First dose on Tue02/26/22 at 1700 lamoTRIgine tablet 200 mg (LaMICtaL) 204 1 (Given - Provider: Tanesha Butt) 0825 (Given - Provider: Catalina lerma R.NBritton) 200 mg, oral, 2 times daily, First dose on Tue02/26/22 at 2100 midazolam (PF) injection 1 mg (VERSED) (COMPLETED) 1137 (Given - Provider: Donna Mercado RBrittonNBritton) 1 mg, intravenous, Once, On Tue02/26/22 at 1045, For 1 dose, Pre- Op ondansetron (PF) injection 4 mg (ZOFRAN) (COMPLETED) 1203 (Given - Provider: Sharifa AmadorNBritton) 4 mg, intravenous, Once, On Tue02/26/22 at 1215, For 1 dose, Pre- Op pantoprazole DR tablet 40 mg (PROTONIX) 1714 (Given - Provider: Tanesha Butt) 0610 (Given - Provider: Lauren Mckeon R.N.) 40 mg, oral, 2 times daily before breakf ast and dinner, First dose on Tue02/26/22 at 1600, pantoprazole 40 mg oral twice daily was interchanged for esomeprazole 20 or 40 mg oral twice daily Swallow whole. Do NOT crush, chew, or split tablet. pregabalin capsule 600 mg (LYRICA) 2040 (Given - Provider: Tanesha Butt) 0825 (Given - Provider: Catalina Mccloud R.N.) 600 mg, oral, 2 times daily, First dose on Tue02/26/22 at 2100 QUEtiapine tablet 50 mg (SEROquel) 2041 (Given - Provider: Tanesha Butt) 50 mg, oral, Daily at bedtime, First dose on Tue02/26/22 at 2100 rOPINIRole tablet 2 mg (REQUIP) 2040 (Given - Pr ovider: Tanesha Butt) 2 mg, oral, Daily at bedtime, First dose on Tue02/26/22 at 2100 sennosides-docusate sodium 8.6-50 mg per tablet 1 tablet (SE NOKOT-S) 2040 (Given - Provider: Tanesha Butt) 0825 (Given - Provider: Catalina Mccloud R.N.) 1 tablet, oral, 2 times daily, First dos e on Tue02/26/22 at 2100, Do not give if patient has diarrhea. tranexamic acid in NaCl IVPB 1,000 mg (CYKLOKAPRON) (COMPLET ED) 1230 (Given - Provider: Tejal Gonzalez R.N.) 1,000 mg (1 g), intravenous, at 300 mL/h r, Administer over 20 Minutes, Once, On Tue02/26/22 at 1100, For 1 dose, Intra-Op, Administer in OR upon induction tranexamic acid in NaCl IVPB 1,000 mg (CYKLOKAPRON) (COMPLET ED) 1330 (Given - Provider: Tejal Gonzalez R.N.) 1,000 mg (1 g), intravenous, at 300 mL/h r, Administer over 20 Minutes, Once, On Tue02/26/22 at 1100, For 1 dose, Intra-Op, Administer in OR just before dropping tourniquet vancomycin 1,000 mg in NaCl 0.9% 250 mL (VANCOCIN) IVPB (COM PLETED) 1251 (Given - Provider: Tejal Gonzalez R.N.) 1,000 mg (rounded from 1,050 mg = 15 mg/ kg ? 70 kg Order-specific weight), intravenous, at 260 mL/hr, Administer over 60 Minutes, Once, On Tue02/26/22 at 1045, For 1 dose, Pre-Op, Give before incision i n addition to cefazolin per Ortho ID., D rug Monitoring Program: Pharmacist to adjust medication dosing based on indication and drug clearance factors., Indications: Bone and/or joint infection zonisamide capsule 300 mg (ZONEGRAN) 204 1 (Given - Provider: Tanesha Butt) 0825 (Given - Provider: Catalina lerma RBrittonNBritton) 300 mg, oral, 2 times daily, First dose on Tue02/26/22 at 2100, Swallow whole. Do NOT crush, chew or open capsule. Continuous Medication Order 02/25/2022 02/26/2022 02/27/2022 lactated ringers 1609 (New Bag - Provider: Chari Butt) 0131 (New Bag - Provider: Denise Novak R.N., ONC) 75 mL/hr, intravenous, Continuous, Start ing on Tue02/26/22 at 1500, Until patient has 500cc po intake lactated ringers (CANCELED) 1129 (New Ba g - Provider: Donna Mercado RBrittonNBritton)1212 (Stopped - Provider: Tejal Gonzalez RBrittonNBritton) 20 mL/hr, intravenous, Continuous, Starting on Tue02/26/22 at 104 5, Pre-Op lactated ringers 1437 (Continued from OR - Provi marquis: Guillermina Oneill R.NBritton) 20 mL/hr, intravenous, Continuous, Start ing on Tue02/26/22 at 1330, PACU & Post-Op PRN Medication Order 02/25/2022 02/26/2022 02/27/2022 albuterol nebulizer solution 2.5 mg 2.5 mg, nebulization, Every 6 hours PRN, shortness of breath, Starting on Tue02/26/22 at 1451, Albuterol nebs were interchanged for albuterol/levalbuterol MDI (same frequency) benzocaine-menthoL 15-3.6 mg per lozenge 1 lozenge (CEPACOL) 1 lozenge, oral, As needed, sore throat, Starting on Tue02/26/22 at 1451 benzonatate capsule 100 mg (TESSALON PERLES) 100 mg, oral, 3 times daily PRN, cough, Starting on Tue02/26/22 at 1451, Swallow whole. Do NOT crush, chew or open capsule. bisacodyL suppository 10 mg (DULCOLAX) 10 mg, rectal, Daily PRN, constipation, Starting on Tue02/26/22 at 1451, Ordered sequence of administration: polyethylene glycol, then bisacodyl until BM achieved. calcium carbonate chewable tablet 400 mg of calcium (TUMS) 1007 (Given - Provider: Catalina Mccloud RBetsy) 400 mg of calcium, oral, Every 2 hour UT N, indigestion, Starting on Tue02/26/22 at 1451, Doses listed are in mg of elemental calcium. Take with food. 500 mg calcium carbonate contains 200 mg of elemental calcium. carboxymethylcellulose 0.5 % ophthalmic solution 2 drop (REFRESH PLUS) 2 drop, both eyes, 4 times daily PRN, dry eyes, Starting on Tue02/26/22 at 1451 D5W infusion 10-250 mL/hr, intravenous, As needed, Me dications Incompatible with 0.9% NaCL, Starting on Tue02/26/22 at 2106, Infuse at the same rate as the piggyback until tubing clears or up to a volume of 20 mL pre and post infusion for medications incom patible with 0.9% NaCL. Use 100 mL bag then discard. dexAMETHasone injection 4 mg (DECADRON) 4 mg, intravenous, Once as needed, nause a, vomiting, Starting on Tue02/26/22 at 1451, For 1 dose, Give only if NOT given during the pre or intraoperative period. If ondansetron ordered, give dexamethasone with first dose of ondansetron. diphenhydrAMINE capsule 25 mg (BENADRYL) 25 mg, oral, Every 6 hours PRN, itching, allergies, Starting on 02/27/22 at 0815 fentaNYL injection 25 mcg (SUBLIMAZE) (CANCELED) 1508 (Given - Provider: Guillermina Oneill R.NBritton) 25 mcg, intravenous, Every 2 min PRN, Fo r pain 4 or greater (maximum 100 mcg). If max dose of Fentanyl is reached and if pain is greater than 4, discontinue Fentanyl: give Hydromorphone, Starting on Tue02/26/22 at 1436, PACU (only) fentaNYL injection 50 mcg (SUBLIMAZE) (CANCELED) 1136 (Given - Provider: Donna Mercado RBrittonNBritton) 50 mcg, intravenous, Every 2 min PRN, se dation, Starting on Tue02/26/22 at 1042, Pre-Op, Up to maximum total dose of 200 mcg HYDROmorphone (PF) injection 0.2 mg (DILAUDID) (COMPLETED) 0433 (Given - Provider: Lauren Mckeon R.NBritton) 0.2 mg, intravenous, Every 2 hour PRN, s evere pain or score 7-10 of 10, Starting on 02/27/22 at 0411, For 1 dose ipratropium-albuteroL 0.5-2.5 mg/3 mL nebulizer solution 3 mL (D UONEB) 3 mL, nebulization, 4 times daily PRN, s hortness of breath, wheezing, Starting on Tue02/26/22 at 1451 meclizine tablet 25 mg (ANTIVERT) 25 mg, oral, Every 6 hours PRN, dizziness, Starting on Tue 2 at 1451 NaCl 0.9% infusion 10-250 mL/hr, intravenous, As needed, Be tween Consecutive Piggyback Medications, Starting on Tue02/26/22 at 2106, Infuse at the same rate as the piggyback until tubing clears or up to a volume of 20 mL. Select for IV medication administration when no maintenance IV available or when IV medications are not compatible with maintenance fluid. NaCl 0.9% infusion 10-250 mL/hr, intravenous, As needed, Po st Medications (Hazardous/Low Fluid Volume), Starting on Tue02/26/22 at 2106, Infuse at the same rate as the medication until tubing cleared of medication, then discard. naloxone injection 0.2 mg (NARCAN) 0.2 mg, intravenous, As needed, respirat ory depression, Starting on Tue02/26/22 at 1451, For RASS Score -4 or less, respiratory rate of less than 8 breaths/min. Notify provider/service and rapid response team (if available at institution). ondansetron (PF) injection 4 mg (ZOFRAN) 4 mg, intravenous, Every 6 hours PRN, na usea, vomiting, Starting on Tue02/26/22 at 1451, For 48 hours, Reassess for nausea or vomiting after at least 10 minutes. If nausea or vomiting persists administer next ordered antiemetic medications (or marquis for antiemetic medication administration ondansetron then haloperidol then promethazine). oxyCODONE IR tablet 10 mg (ROXICODONE) (COMPLETED) 1504 (Given - Provider: Guillermina Oneill RBrittonNBritton) 10 mg, oral, Once as needed, For pain 4 or greater, Starting on Tue02/26/22 at 1436, For 1 dose, PACU (only) oxyCODONE IR tablet 10 mg (ROXICODONE) (COMPLETED) 1203 (Given - Provider: Donna Mercado RBrittonNBritton) 10 mg, oral, Once as needed, moderate pa in or score 4-6 of 10, severe pain or score 7-10 of 10, Starting on Tue02/26/22 at 1154, For 1 dose, Pre-Op oxyCODONE IR tablet 10 mg (ROXICODONE) (CANCELED) 1829 (Given - Provider: Tanesha Butt) 0130 (Given - Provider: Denise Novak RBrittonN., ONC)0433 (Given - Provider: Lauren Mckeon R.N.)0743 (Given - Provider: Catalina Mccloud, R.N.) 10 mg, oral, Every 3 hours PRN, severe p ain or score 7-10 of 10, Starting on Tue02/26/22 at 1818 oxyCODONE IR tablet 10 mg (ROXICODONE)(Linked Group 1) 1104 (See Alternative - Provider: Catalina Mccloud R.N.) 10 mg, oral, Every 3 hours PRN, moderate pain or score 4-6 of 10, Starting on 02/27/22 at 0907, If patient is >75 consider changing to 2.5-5mg scale oxyCODONE IR tablet 15 mg (ROXICODONE)(Linked Group 1) 1104 (Given - Provider: Catalina Mccloud R.N.) 15 mg, oral, Every 3 hours PRN, severe p ain or score 7-10 of 10, Starting on 02/27/22 at 0907 phenoL 1.4 % spray 5 spray (CHLORASEPTIC) 5 spray, mouth/throat, Every 2 hour PRN, sore throat, Starting on Tue02/26/22 at 1451, to mouth/throat polyethylene glycol powder packet 1 packet (MIRALAX) 1 packet, oral, Daily PRN, constipation, Starting on Tue02/26/22 at 1451, Ordered sequence of administration: polyethylene glycol, then bisacodyl until BM achieved. Avoid mixing with starch-based thickened liquids. promethazine injection 6.25 mg (PHENERGAN) 6.25 mg, intravenous, Every 6 hours PRN, nausea, vomiting, Starting on Tue02/26/22 at 1451, For 48 hours, RASS must be -2 or higher to administer. Reassess for nausea or vomiting after at least 10 minute s. If nausea or vomiting persists admini ster next ordered antiemetic medications (order for antiemetic medication administration ondansetron then haloperidol then promethazine) Linked Groups Order Group 1: oxyCODONE IR tablet 10 mg (ROXICODONE)Jump to med 10 mg, oral, Every 3 hours PRN, moderate pain or score 4-6 of 10, Starting on 02/27/22 at 0907
If patient is >75 consider changing to 2.5-5mg scale
Or oxyCODONE IR tablet 15 mg (ROXICODONE)Jump to med 15 mg, oral, Every 3 hours PRN, severe p ain or score 7-10 of 10, Starting on 02/27/22 at 0907 documented in this encounter Additional Health Concerns Assessment Noted Time PHQ-9 Depression Total Score: 16 02/11/2021 12:00 AM C DT documented as of this encounter Care Teams Pyrometer Mechanic Relationship Specialty Start Date End Date Elsewhere, Pcp PCP - General Internal Medicine 12/25/21 documented as of this encounter
--- OUTSIDE RECORDS SUMMARY | 2022-07-06 14:48 | XMS_ITS | Encounter Summary ---
:1965 Author Organization [facility] Address [address] [place] [address] Care Team Providers Name Role Phone Elsewhere, Pcp Primary Care Provider Unavailable Encounter Details Date Type Department Care Team Description 03/03/2022 Orders Only Pharmacy Prior Auth Ana Rosa Ying [phone] Social History Tobacco Use Types Packs/Day Years [...] or relatives? How often do you attend druze or Patient refused 2021 hindu services? Do you belong to any clubs or No 05/17/2022 organizations such as druze groups, unions, fraternal or athletic groups, or [...] place to sleep or slept in a [facility] (including now)? Education Answer Date Recorded What [...] documented as of this encounter Care Teams Machine Zipper Trimmer Relationship Specialty Start Date End Date Elsewhere, Pcp PCP - General Internal Medicine 12/25/21 documented as of this encounter
--- OUTSIDE RECORDS SUMMARY | 2022-07-06 14:48 | XMS_ITS | Encounter Summary ---
:1965 Author Organization [facility] Address [address] [place] [address] Care Team Providers Name Role Phone Elsewhere, Pcp Primary Care Provider Unavailable Encounter Details Date Type Department Care Team Description 02/26/2022 Clinical Communication [facility] Austyn Breaux, Pharmacy [facility] [address] [facility] [address] Social History Tobacco Use Types Packs/Day Years [...] or relatives? How often do you attend faith or Patient refused 2021 jehovah's witness services? Do you belong to any clubs or No 05/17/2022 organizations such as faith groups, unions, fraternal or athletic groups, or [...] place to sleep or slept in a [facility] (including now)? Education Answer Date Recorded What [...] documented as of this encounter Care Teams Embroiderer Hand Relationship Specialty Start Date End Date Elsewhere, Pcp PCP - General Internal Medicine 12/25/21 documented as of this encounter
--- OUTSIDE RECORDS SUMMARY | 2022-07-06 14:48 | XMS_ITS | Encounter Summary ---
:1965 Author Organization [facility] Address [address] [place] [address] Care Team Providers Name Role Phone Elsewhere, Pcp Primary Care Provider Unavailable Encounter Details Date Type Department Care Team Description 03/08/2022 Orders Only Department of Orthopedic Melissa Mcdonald M.D. Surgery in [place], [place] [address] [place] [address] Social History Tobacco Use Types Packs/Day Years [...] or relatives? How often do you attend pentecostalism or Patient refused 2021 mosque services? Do you belong to any clubs or No 05/17/2022 organizations such as pentecostalism groups, unions, fraternal or athletic groups, or [...] documented as of this encounter Care Teams Customer Solutions Specialist Relationship Specialty Start Date End Date Elsewhere, Pcp PCP - General Internal Medicine 12/25/21 documented as of this encounter
--- OUTSIDE RECORDS SUMMARY | 2022-07-06 14:48 | XMS_ITS | Encounter Summary ---
:1965 Author Organization [facility] Address [address] [place] [address] Care Team Providers Name Role Phone Elsewhere, Pcp Primary Care Provider Unavailable Encounter Details Date Type Department Care Team Description 03/11/2022 Documentation Department of Orthopedic Melissa Mcdonald M.D. Surgery in [place], [place] [address] [place] [address] Social History Tobacco Use [...] or relatives? How often do you attend holiness or Patient refused 2021 congregation services? Do you belong to any clubs or No 05/17/2022 organizations such as holiness groups, unions, fraternal or athletic groups, or [...] documented as of this encounter Progress Notes Melissa Mcdonald M.D. - 03/11/2022 5:30 PM CDT 1. Status post 2 stage revision left shoulder arthroplasty Ms. Mosquera called in reporting that the strap on her sling has broken. I returned her call to discuss it. I was not sure which part of the sling had come apart and if it might be on of the velcro pieces so I called her son who lives next door. He was able to evaluate it and reports that he believes he can sew it together tonight. Ms. Mosquera is using a scarf in a cuff and collar fashion at the moment. I asked Mr. Mosquera if he could come to [place] to olive picker a new sling tomorrow and he states there is no way. He will repair the sling to the best of his abilities tonight and I will look into whether or not we can mail a new one to them tomorrow, knowing that if he repairs the first one it might not hold up over time. They were grateful for the call. documented in this encounter Plan of Treatment Not on filedocumented as of this encounter Visit Diagnoses Not on filedocumented in this encounter Additional Health Concerns Assessment Noted Time PHQ-9 Depression Total Score: 16 02/11/2021 12:00 AM C DT documented as of this encounter Care Teams Cotton Bag Sewer Relationship Specialty Start Date End Date Elsewhere, Pcp PCP - General Internal Medicine 12/25/21 documented as of this encounter
--- OUTSIDE RECORDS SUMMARY | 2022-07-06 14:48 | XMS_ITS | Encounter Summary ---
:1965 Author Organization [facility] Address [address] [place] [address] Care Team Providers Name Role Phone Elsewhere, Pcp Primary Care Provider Unavailable Encounter Details Date Type Department Care Team Description 02/26/2022 Ancillary Procedure Department of Anesthesiology Social History Tobacco Use Types Packs/Day Years [...] you attend scientology or Patient refused 2021 zoroastrianism services? Do you belong to any clubs [...] months, you worried that your food Someti marvin true 05/17/2022 would run out before you [...] Date/Time Associated Comments Diagnosis ANESTHESIOLOGY IMAGE Routine 02/26/2022 10:45 Res ults for this EXAM AM CDT procedure are i n the results section. documented in this encounter Results Non-Radiology Image-Anesthesiology Image Exam (02/26/2022 10:45 AM CDT) Specimen (Source) Anatomical Collection Method Collection Time Re ceived Time Location / / Volume Laterality 02/26/2022 10:41 AM CDT Narrative [facility] - 02/26/2022 12:00 PM CDT This order has been created and [...] documented as of this encounter Care Teams Valve Assembler Relationship Specialty Start Date End Date Elsewhere, Pcp PCP - General Internal Medicine 12/25/21 documented as of this encounter
--- OUTSIDE RECORDS SUMMARY | 2022-07-06 14:48 | XMS_ITS | Encounter Summary ---
:1965 Author Organization [facility] Address [address] [place] [address] Care Team Providers Name Role Phone Elsewhere, Pcp Primary Care Provider Unavailable Reason for Visit Reason Comments Communication Encounter Details Date Type Department Care Team Description 03/11/2022 Clinical Communication Department of Cyrus Polk mmunication Orthopedic Surgery in [place] Souza [place], [place] [address] [place] [address] [address] [place] [id number] [phone] Social History Tobacco Use Types Packs/Day Years [...] or relatives? How often do you attend catholic or Patient refused 2021 mosque services? Do you belong to any clubs or No 05/17/2022 organizations such as catholic groups, unions, fraternal or athletic groups, or [...] Telephone Encounter - Melissa Mcdonald M.D. - 03/11/2022 5:33 PM CDT Patient's son will attempt to sew sling back together tonight. Patient is using scarf as a cuff/collar at the moment. Need to find out whether a new sling can be mailed to the patient since she cannot drive, her son states he cannot fit in her car, and he reports he does not have any gas and cannot afford any to drive to [place] and tack picker new sling. Telephone Encounter - Radha Suh - 03/11/2022 4:49 PM CDT Patient calls indicating that the strap on her brace has ripped and fallen off and she needs to be sent a new one. She can't drive and would have no way to come get one or go to a store. documented in this encounter Plan of Treatment Not on filedocumented as of this encounter Visit Diagnoses Not on filedocumented in this encounter Additional Health Concerns Assessment Noted Time PHQ-9 Depression Total Score: 16 02/11/2021 12:00 AM C DT documented as of this encounter Care Teams Box Coverer Hand Relationship Specialty Start Date End Date Elsewhere, Pcp PCP - General Internal Medicine 12/25/21 documented as of this encounter
--- OUTSIDE RECORDS SUMMARY | 2022-07-06 14:48 | XMS_ITS | Encounter Summary ---
:1965 Author Organization [facility] Address [address] [place] [address] Care Team Providers Name Role Phone Elsewhere, Pcp Primary Care Provider Unavailable Reason for Visit Reason Comments Med Refill Encounter Details Date Type Department Care Team Description 03/02/2022 Refill Division of [facility] Ridge Vega M.D. Med Refill Internal Medicine, [place] [address] [address] [facility] [place] [address] [place] [address] [place] [address] [place] [address] Social History Tobacco Use Types Packs/Day [...] you attend sikh or Patient refused 2021 confucianism services? Do [...] place to sleep or slept in a prison (including now)? Education Answer Date Recorded What [...] documented as of this encounter Care Teams Bread Wrapping Machine Feeder Relationship Specialty Start Date End Date Elsewhere, Pcp PCP - General Internal Medicine 12/25/21 documented as of this encounter
--- OUTSIDE RECORDS SUMMARY | 2022-07-06 14:48 | XMS_ITS | Encounter Summary ---
:1965 Author Organization [facility] Address [address] [place] [address] Care Team Providers Name Role Phone Elsewhere, Pcp Primary Care Provider Unavailable Encounter Details Date Type Department Care Team Description 03/05/2022 Orders Only Pharmacy Prior Auth RO Elsewhere, Pcp [phone] Social History Tobacco Use Types Packs/Day Years [...] or relatives? How often do you attend protestant or Patient refused 2021 quaker services? Do you belong to any clubs or No 05/17/2022 organizations such as protestant groups, unions, fraternal or athletic groups, or [...] documented as of this encounter Care Teams Surg Physician Asst Relationship Specialty Start Date End Date Elsewhere, Pcp PCP - General Internal Medicine 12/25/21 documented as of this encounter
--- OUTSIDE RECORDS SUMMARY | 2022-07-06 14:48 | XMS_ITS | Encounter Summary ---
:1965 Author Organization [facility] Address [address] [place] [address] Care Team Providers Name Role Phone Elsewhere, Pcp Primary Care Provider Unavailable Encounter Details Date Type Department Care Team Description 03/02/2022 Orders Only Pharmacy Prior Auth Brooklyn Frias [phone] Social History Tobacco Use Types Packs/Day Years [...] you attend taoist or Patient refused 2021 muslim services? Do you belong to any clubs or No 05/17/2022 organizations such as taoist groups, unions, fraternal or athletic groups, or [...] documented as of this encounter Care Teams Aluminum Container Tester Relationship Specialty Start Date End Date Elsewhere, Pcp PCP - General Internal Medicine 12/25/21 documented as of this encounter
--- OUTSIDE RECORDS SUMMARY | 2022-07-06 14:48 | XMS_ITS | Encounter Summary ---
:1965 Author Organization [facility] Address [address] [place] [address] Care Team Providers Name Role Phone Elsewhere, Pcp Primary Care Provider Unavailable Encounter Details Date Type Department Care Team Description 03/08/2022 Documentation Department of Orthopedic Melissa Mcdonald M.D. Surgery in [place], [place] [address] [place] [address] Social History Tobacco Use [...] you attend gnosticist or Patient refused 2021 zoroastrian services? Do you belong to any clubs [...] encounter Progress Notes Melissa Mcdonald M.D. - 03/08/2022 10:40 AM CDT 1. Status post 2 stage revision left shoulder arthroplasty I placed a call to the patient to discuss her antibiotics. Her insurance has denied the formulary ofdoxycycline she was prescribed. However she states that she has enough antibiotics to finish the twoweeks following her surgery while we are observing her cultures. She does report that she is runninglow on pain medication and I offered to send a refill to her local pharmacy. She was instructed to continue her antibiotics through the two weeks and that we will be in touch with her once her culturesare finalized. documented in this encounter Plan of Treatment Not on filedocumented as of this encounter Visit Diagnoses Not on filedocumented in this encounter Additional Health Concerns Assessment Noted Time PHQ-9 Depression Total Score: 16 02/11/2021 12:00 AM C DT documented as of this encounter Care Teams Manager Intranet Relationship Specialty Start Date End Date Elsewhere, Pcp PCP - General Internal Medicine 12/25/21 documented as of this encounter
--- OUTSIDE RECORDS SUMMARY | 2022-07-06 14:48 | XMS_ITS | Encounter Summary ---
:1965 Author Organization [facility] Address [address] [place] [address] Care Team Providers Name Role Phone Elsewhere, Pcp Primary Care Provider Unavailable Encounter Details Date Type Department Care Team Description 03/08/2022 Orders Only Department of Orthopedic Melissa Mcdonald M.D. Surgery in [place], [place] [address] [place] [address] Social History Tobacco Use [...] or relatives? How often do you attend roman catholic or Patient refused 2021 christianity services? Do you belong to any clubs or No 05/17/2022 organizations such as roman catholic groups, unions, fraternal or athletic groups, [...] place to sleep or slept in a residential (including now)? Education Answer Date Recorded What [...] documented as of this encounter Care Teams Insulation Batting Machine Operator Relationship Specialty Start Date End Date Elsewhere, Pcp PCP - General Internal Medicine 12/25/21 documented as of this encounter
--- OUTSIDE RECORDS SUMMARY | 2022-07-06 14:48 | XMS_ITS | Encounter Summary ---
:1965 Author Organization [facility] Address [address] [place] [address] Care Team Providers Name Role Phone Elsewhere, Pcp Primary Care Provider Unavailable Encounter Details Date Type Department Care Team Description 03/02/2022 Orders Only Pharmacy Prior Auth Ana Rosa Ying [phone] Social History Tobacco Use Types Packs/Day Years [...] or relatives? How often do you attend anabaptist or Patient refused 2021 anabaptist services? Do you belong to any clubs or No 05/17/2022 organizations such as anabaptist groups, unions, fraternal or athletic groups, or [...] documented as of this encounter Care Teams Band Master Relationship Specialty Start Date End Date Elsewhere, Pcp PCP - General Internal Medicine 12/25/21 documented as of this encounter
--- OUTSIDE RECORDS SUMMARY | 2022-07-06 14:48 | XMS_ITS | Encounter Summary ---
:1965 Author Organization [facility] Address [address] [place] [address] Care Team Providers Name Role Phone Elsewhere, Pcp Primary Care Provider Unavailable Encounter Details Date Type Department Care Team Description 02/26/2022 Anesthesia Event RST SEBAS MORAN OR Kaushik Carpenter, [address] [facility] [place] [address] [address] [facility] [phone] [place] [id number] (Wo rk) Anesthesia Record Procedure Summary Procedure Name Responsible Anesthesia Start Anesthesia Stop Anesthesiologist Time Time ARTHROPLASTY Kaushik Carpenter MDanielle, 02/26/22 1212 02/26/22 1436 REPLACEMENT TOTAL Ch.B. SHOULDER. (Left) Events Date Time Event Comment 02/26/2022 1140 Block Start Documented by nu rsing staff 1145 Block End Documented by nu rsing staff 1212 An Start Machine/Equipmen t Checked Infection Precautions Foll owed Procedure/Site Verified NPO Sta tus Verified Supine Standard ASA Mon itors Applied 1216 An Induction 1221 An Intubation 1225 Turnover to Proceduralist 1254 Proc Start 1414 Proc Fin 1421 Turnover to ANE Staff 1421 Airway Removal Criteria Met 1421 Extubation/Airway Removed 1423 an stop data 1436 An End I completed my h andoff to the receiving staff during [facility] we 1. Identified the patient 2. Ident ified the responsible provider 3. Revi ewed the pertinent medical history 4. Discussed the surgical course 5. Review ed intra-op anesthesia management and i ssues during anesthesia 6. Set expectati ons for post-procedure period 7. Allowe d opportunity for questions and ac knowledgement of understanding. Name Total bupivacaine-EPINEPHrine PF 0.5%-1:200,000 injection 15 mL lidocaine 2% (mg) injection 40 mg propofol 10 mg/mL 210 mg propofol 10 mg/mL infusion 714.48 mg succinylcholine 20 mg/mL injection 120 mg phenylephrine 100 mcg/mL injection 300 mcg ePHEDrine PF 5 mg/mL syringe injection 10 mg ondansetron 4 mg/2 mL injection 4 mg ceFAZolin injection 2,000 mg (ANCEF) 2 g tranexamic acid in NaCl IVPB 1,000 mg (CYKLOKAPRON) 1 g tranexamic acid in NaCl IVPB 1,000 mg (CYKLOKAPRON) 1 g vancomycin 1,000 mg in NaCl 0.9% 250 mL (VANCOCIN) IVP B 1,000 mg dexamethasone 4 mg/mL injection 8 mg lactated ringers free drip 1,200 mL lactated ringers 14.33 mL Agents No agents on file. Blood No blood administrations on file. Lines, Drains, and Airways Type Details Placement Removal Wound 12/30/21; 1444; Shoulder; 12/30/21 1444 by 02/26 1235 by Anterior, Left; 02/26/22; Guillermina Grover, R.N. Rishi Kumari, R.N. 1235; old incision Wound 02/26/22; Incision; 02/26/22 0000 by 05/18/22 12 58 by Shoulder; Anterior, Left; Rishi Murillo R.N. Rishi Murillo, R.N. 05/18/22; 1258 Peripheral IV Placement Date: 02/26/22; 02/26/22 0853 by Maisha, 02/27/22 0751 by Placement Time: 0853; Ricky Mcgee, Catheter Size: 20 G; R.N. Orientation: Right; Location: Hand; Site Prep: Chlorhexidine (Preferred); Technique: Anatomical landmarks (vbb); Inserted by: marina; Insertion Attempts: 1; Removal Date: 02/27/22; Removal Time: 0751; Removal Reason: Removed by patient ETT Placement Date: 02/26/22; 02/26/22 1221 by 02/26 1421 by Placement Time: 1221 Tejal Gonzalez, Ashley e, Juana L, (created via procedure TY Cabrera APRN documentation); Mask Ventilation: Easy mask; Type: Standard ETT; Single Lumen Tube Size: 7 mm; Cuffed: Yes; Location: Oral; Grade View: Grade 1; Insertion Attempts: 1; Placement Verification: Bilateral breath sounds, Positive ETCO2, Symmetrical chest wall movement; Removal Date: 02/26/22; Removal Time: 1420 documented in this encounter Social History Tobacco [...] you attend scientology or Patient refused 2021 zoroastrian services? Do [...] Evaluation - Kaushik Carpenter M.B., Ch.B. - 02/26/2022 3:19 PM CDT Patient: Angie Mosquera Procedure Summary Date: 02/26/22 Room / Location: [address] / [facility] in [place], [place] Anesthesia Start: 1212 Anesthesia Stop: 143 Procedure: ARTHROPLASTY REPLACEMENT TOTAL SHOULDER. (Left ) Diagnosis: Shoulder Joint Disorder Left (Degenerative joint disease left.) Providers: Cyrus Polk M.D. Responsible Provider: Kaushik Carpenter M.B., Ch.B. Anesthesia Type: general with pain block ASA Status: 3 Anesthesia Type: general with pain block Last vitals Vitals Value Taken Time BP 116/73 02/26/22 1515 Temp 36.4 ??C 02/26/22 1433 Pulse 66 02/26/22 1518 Resp 8 02/26/22 1518 SpO2 90 % 02/26/22 1518 Vitals shown include unvalidated device data. Please reference Vitals flowsheet for most recent vital signs. Anesthesia Post Evaluation Patient Disposition: general care unit Cardiovascular status: hemodynamics (HR & BP) acceptable Respiratory status: patent airway with spontaneous effort Temperature: normothermic Oxygen requirements: room air Level of consciousness: awake Pain score: pain adequately controlled and/or at baseline Post Op nausea/vomiting: none Hydration status: euvolemic Anesthesia Procedure Notes - Tejal Gonzalez R.N. - 02/26/2022 12:59 PM CDTAssociated Order(s): Airway Airway Date/Time: 02/26/2022 12:21 PM Performed by: Tejal Gonzalez R.N. Authorized by: Kaushik Carpenter M.B., Ch.B. Care team members present 1. Kaushik Carpenter M.B., Ch.B. 3. Juana Silva APRN, CRNA Patient location during procedure: OR / Procedure Area PROCEDURE DETAILS: Mask difficulty assessment: easy mask Final airway type: video laryngoscope Laryngeal Manipulation: no Final best view of glottic structures - Cormack/Lehane Score: grade 1 ETT location: oral VL device: glide scope [place] scope blade size: 3 Adult tube size: 7 Adult ETT distance at teeth/gum: 21 Oral tube type: standard ETT Cuffed: yes [...] Procedure outcome: successful Airway event: no complications ATTESTATION STATEMENT Anesthesia Preprocedure Evaluation - Rodrigo Sims M.D. - 02/26/2022 12:53 PM CDT Preprocedure Anesthesia & H&P Assessment Procedure Summary Anesthesia Start Date/Time: 02/26/22 1212 Procedure: ARTHROPLASTY REPLACEMENT TOTAL SHOULDER. (Left ) Diagnosis: Shoulder Joint Disorder Left [M25.812] Pre-op diagnosis: Degenerative joint disease left. Location: [address] [facility] / [facility] in [place], [place] Providers: Cyrus Polk M.D. 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) (+) Transient Ischemic Attack MSK/RHEUM (+) Esophageal Motility Disorder (+) Fibromyalgia Other (+) Nicotine Dependence Cigarettes (+) Nicotine Dependence Unspecified (+) Opioid Moderate Or Severe Use Disorder (Dependence) Uncomplicated (HCC) (+) Pain Shoulder Left OBJECTIVE PHYSICAL EXAMINATION Airway (HEENT) Mallampati: II TM Distance: >3 FB Neck ROM: Full Mouth Opening: >3 cm Upper Lip Bite Test Class: I Cardiovascular Rhythm: Regular Rate: Normal Cardiovascular Assessment: cardiovascular normal Functional Capacity: >4 METS Pulmonary Pulmonary Assessment: Clear General / Constitutional Constitutional Assessment: Normal General State of Health:: healthy appearing and calm ASSESSMENT / PLAN ANESTHESIA PLAN ASA: 3 Anesthesia Plan: general with pain block Patient seen and allergies reviewed, anesthesia plan and risks discussed directly with patient /legal guardian or through an emergency room orderly. Risks/Benefits/Alternatives of Blood transfusion discussed with patient / legal guardian, including an opportunity to ask questions and/or decline some or all transfusion therapies. The patient / legalguardian consented to the use of all blood products, as deemed medically necessary Approval to Proceed: approved for anesthesia Anesthesia Procedure Notes - Rodrigo Sims M.D. - 02/26/2022 11:52 AM CDT Associated Order(s): Regional Block Regional Block Date/Time: 02/26/2022 11:53 AM Performed by: Rodrigo Sims M.D. Authorized by: Jennie Brown M.D. Location: Pre Op / PACU PROCEDURE [...] saved Injection technique: single injection Needle type: echogenic Gauge: 21G Length: 5 Test dose: yes- negative test dose Incremental injection of local anesthetic with aspiration every:5cc Pain with needle advancement or injection of local anesthetic: no Injected Medications: Injection(s), anesthetic agent(s) and/or steroid; See MAR Comments: Comments: Patient was seen in the pre-op area and risks, benefits, and alternatives of the procedurewere discussed. All questions were answered, and the patient elected to proceed. Under direct ultrasound visualization, target nerves were identified and local anesthetic was injected after negative asp iration with good spread around nerves visualized on ultrasound. Patient tolerated the procedure well and with no immediate complications. UNIVERSAL PROTOCOL All relevant documentation and testing [...] applicable for the procedure.: yes Skin prep: chlorhexidine / alcohol SEDATION / ANESTHESIA Anesthesia method: local infiltration Local infiltrate type: lidocaine POST-PROCEDURE DETAILS: Procedure completed successfully: successful procedure Other complications: none ATTESTATION STATEMENT A resident or fellow participated in the procedure, and the senior science consultant was present for the entire procedure. documented in this encounter Plan of Treatment Not on filedocumented as of this encounter Procedures Procedure Name Priority Date/Time Associated Comments Diagnosis LDA ANE ENDOTRACHEAL Routine 02/26/2022 12:21 Res ults for this AIRWAY PM CDT procedure are i n the results section. MC ANE NERVE BLOCK Routine 02/26/2022 11:53 Resul ts for this WITH ULTRASOUND AM CDT procedure ar e in the results section. MS US GUIDE PLC NDL Routine 02/26/2022 11:53 Resu lts for this AM CDT procedure are i n the results section. MS INJ ANES BRACHIAL Routine 02/26/2022 11:53 Res ults for this PLEX AM CDT procedure are i n the results section. documented in this encounter Results LDA ANE ENDOTRACHEAL AIRWAY (02/26/2022 12:21 PM CDT) Narrative Tejal Gonzalez R.N. - 02/26/2022 12:21 PM CDT Tejal Gonzalez R.N. ? 02/26/2022 ??1:00 PM Airway Date/Time: 02/26/2022 12:21 PM Performed by: Tejal Gonzalez R.N . Authorized by: Kaushik Carpenter M.B., C h.B. Care team members present 1. Kaushik Carpenter M.B., Ch.B. 3. Juana Silva, ACCREDITATION MANAGER, BRAID MAKER Patient location during procedure: OR / Procedure Area PROCEDURE DETAILS: Mask difficulty assessment: easy mask Final airway type: video laryngoscope Laryngeal Manipulation: no ?? Final best view of glottic structures - Cormack/Lehane Score: grade 1 ETT location: oral VL device: glide scope [place] scope blade size: 3 Adult tube size: 7 Adult ETT distance at teeth/gum: 21 Oral tube type: standard ETT Cuffed: yes [...] outcome: successful ?? Airway event: no complications ATTESTATION STATEMENT Kaushik Carlos, Ch.B. ANESTHESIA ORDERABLES MS INJ ANES BRACHIAL PLEX, MS US GUIDE [facility] NDL, MC ANE NERVE BLOCK WITH ULTRASOUND (02/26/2022 11:53AM CDT) Narrative Jennie Brown M.D. - 02/26/2022 1 1:53 AM CDT Rodrigo Sims M.D. ? 02/26/2022 11:53 AM Regional Block Date/Time: 02/26/2022 11:53 AM Performed by: Rodrigo Sims M.D. Authorized by: Torsher, Jennie C, M.D. Location: Pre Op / PACU PROCEDURE [...] saved Injection technique: single injection Needle type: echogenic Gauge: 21G Length: 5 Test dose: yes- negative test dose ?? Incremental injection of local anestheti c with aspiration every:5cc Pain with needle advancement or injectio n of local anesthetic: no ?? Injected Medications: Injection(s), anes thetic agent(s) and/or steroid; See MAR Comments: Comments: Patient was seen in the pre-op area and risks, benefits, and alternatives of the procedure were discu ssed. All questions were answered, and the patient elected to proceed. Unde r direct ultrasound visualization, target nerves were identified and local anesthetic was injected after negative aspiration with good spread taye und nerves visualized on ultrasound. Patient tolerated the proced ure well and with no immediate complications. UNIVERSAL PROTOCOL All relevant documentation and testing [...] confirmed in a procedu ral pause. PRE-PROCEDURE DETAILS: ?? Appropriate hand hygiene, gown, cap, mas k, protective eyewear, sterile gloves, skin preparation, sterile drape, and strict aseptic technique were utilized as applicable for the procedure .: yes ?? Skin prep: chlorhexidine / alcohol SEDATION / ANESTHESIA Anesthesia method: local infiltration Local infiltrate type: lidocaine POST-PROCEDURE DETAILS: Procedure completed successfully: succes sful procedure Other complications: none ATTESTATION STATEMENT A resident or fellow participated in the procedure, and the senior science consultant was present for the entire procedure. Jennie Brown M.D. PROCEDURE/MINOR SURGICAL ORD ERABLES documented in this encounter Visit Diagnoses Not on filedocumented in this encounter Administered Medications Inactive Administered Medications - up to 3 most recent administrations Medication Order MAR Action Action Date Dose Rate Site bupivacaine-EPINEPHrine (PF) 0.5 Given 02/26/2022 11:44 AM CDT 1 5 mL %-1:200,000 injection (MARCAINE w/EPI) peripheral nerve block, As needed, Starting on Tue02/26/22 at 1144, Anesthesia Intra-op ceFAZolin injection 2,000 mg (ANCEF) Given 02/26/2022 12:47 PM CDT 2 g 2,000 mg (rounded from 1,717.5 mg = 25 m g/kg ? 68.7 kg Dosing weight), intravenous, Once, On Tue02/26/22 at 1100, For 1 dose, Intra-Op, Preoperatively within 1 hour prior to surgical incision. Give in addition to vancomycin per Ortho ID. If needed, reconstitute vial per package insert instructions. See IVAG for administration guidelines. , Drug Monitoring Program: Pharmacist to adjust medication dosing based on indication and drug clearance factors., Indications: Prophylaxis, surgical dexAMETHasone injection (DECADRON) Given 02/26/2022 12:55 PM CDT 8 mg intravenous, As needed, Starting on Tue02/26/22 at 1255, Anesthesia Intra-op ePHEDrine (PF) injection Given 02/26/2022 12:43 PM CDT 10 mg intravenous, As needed, Starting on Tue02/26/22 at 1243, Anesthesia Intra-op lactated ringers New Bag 02/26/2022 1:57 PM CDT intravenous, Continuous Infusion: Per Instructions PRN, Starting on Tue02/26/22 at 1212, Anesthesia Intra-op New Bag 02/26/2022 12:12 PM CDT lidocaine (PF) (cardiac) injection Given 02/26/2022 12:16 PM CDT 40 mg intravenous, As needed, Starting on Tue02/26/22 at 1216, Anesthesia Intra-op ondansetron (PF) injection (ZOFRAN) Given 02/26/2022 1:36 PM CDT 4 mg intravenous, As needed, Starting on Tue02/26/22 at 1336, Anesthesia Intra-op phenylephrine injection Given 02/26/2022 1:40 PM CDT 100 mcg intravenous, As needed, Starting on Tue02/26/22 at 1305, Anesthesia Intra-op Given 02/26/2022 1:16 PM CDT 100 mcg Given 02/26/2022 1:05 PM CDT 100 mcg propofol 10 mg/mL infusion Rate/Dose 02/26/2022 2:08 50 mcg/kg/min 2 0.61 (DIPRIVAN) Change PM CDT mL/hr intravenous, Continuous Infusion: Per Instructions PRN, Starting on Tue02/26/22 at 1217, Anesthesia Intra-op Rate/Dose Change 02/26/2022 1:58 PM CDT 100 mcg/kg/min 41.22 mL/hr Rate/Dose Change 02/26/2022 1:33 PM CDT 75 mcg/kg/min 30.915 mL/hr propofoL injection (DIPRIVAN) Given 02/26/2022 1:58 PM CDT 30 mg intravenous, As needed, Starting on Tue02/26/22 at 1216, Anesthesia Intra-op Given 02/26/2022 1:34 PM CDT 20 mg Given 02/26/2022 1:33 PM CDT 20 mg succinylcholine (PF) injection (ANECTINE ) Given 02/26/2022 12:16 PM CDT 120 mg intravenous, As needed, Starting on Tue02/26/22 at 1216, Anesthesia Intra-op tranexamic acid in NaCl IVPB 1,000 mg Given 02/26/2022 12:30 PM CDT 1 g (CYKLOKAPRON) 1,000 mg (1 g), intravenous, at 300 mL/hr, Administer over 20 Minutes, Once, On Tue02/26/22 at 1100, For 1 dose, Intra-Op, Administer in OR upon induction tranexamic acid in NaCl IVPB 1,000 mg Given 02/26/2022 1:30 PM C DT 1 g (CYKLOKAPRON) 1,000 mg (1 g), intravenous, at 300 mL/hr, Administer over 20 Minutes, Once, On Tue02/26/22 at 1100, For 1 dose, Intra-Op, Administer in OR just before dropping tourniquet vancomycin 1,000 mg in NaCl 0.9% 250 mL Given 02/26/2022 12:51 P M CDT 1,000 mg (VANCOCIN) IVPB 1,000 mg (rounded from 1,050 mg = 15 mg/kg ? 70 kg Order-specific weight), intravenous, at 260 mL/hr, Administer over 60 Minutes, Once, On Tue02/26/22 at 1045, For 1 dose, Pre-Op, Give before incision in addition to cefazolin per Ortho ID., Drug Monitoring Program: Pharmacist to adjust medication dosing based on indication and drug clearance factors., Indications: Bone and/or joint infection documented in this encounter Additional Health Concerns Assessment Noted Time PHQ-9 Depression Total Score: 16 02/11/2021 12:00 AM C DT documented as of this encounter Care Teams Under Cutter Relationship Specialty Start Date End Date Elsewhere, Pcp PCP - General Internal Medicine 12/25/21 documented as of this encounter
--- OUTSIDE RECORDS SUMMARY | 2022-07-06 14:48 | XMS_ITS | Encounter Summary ---
:[address] [facility] Address [address] [place] [address] Care Team Providers Name Role Phone Elsewhere, Pcp Primary Care Provider Unavailable Encounter Details Date Type Department Care Team Description 02/26/[address] [facility] Blanca Galan Eisenberg C.Ph.T. [address] [facility] [phone] [place], [place] (Work) [phone] Social History Tobacco Use Types Packs/Day [...] or relatives? How often do you attend spiritism or Patient refused 2021 jainism services? Do you belong to any clubs or No 05/17/2022 organizations such as spiritism groups, unions, fraternal or athletic groups, or [...] documented as of this encounter Care Teams Engineering Vice President Relationship Specialty Start Date End Date Elsewhere, Pcp PCP - General Internal Medicine 12/25/21 documented as of this encounter
--- OUTSIDE RECORDS SUMMARY | 2022-07-06 14:48 | XMS_ITS | Encounter Summary ---
:1965 Author Organization [facility] Address [address] [place] [address] Care Team Providers Name Role Phone Elsewhere, Pcp Primary Care Provider Unavailable Encounter Details Date Type Department Care Team Description 03/03/2022 Orders Only Pharmacy Prior Auth Yady Lebron [phone] Social History Tobacco Use Types Packs/Day Years [...] you attend nondenominational or Patient refused 2021 druze services? Do you belong to any clubs [...] place to sleep or slept in a assisted (including now)? Education Answer Date Recorded What [...] documented as of this encounter Care Teams Booky Relationship Specialty Start Date End Date Elsewhere, Pcp PCP - General Internal Medicine 12/25/21 documented as of this encounter
--- OUTSIDE RECORDS SUMMARY | 2022-07-06 14:48 | XMS_ITS | Encounter Summary ---
:1965 Author Organization [facility] Address [address] [place] [address] Care Team Providers Name Role Phone Elsewhere, Pcp Primary Care Provider Unavailable Encounter Details Date Type Department Care Team Description 03/16/2022 Clinical Communication Department of [facility] Surgery in [place], [place] [address] [place] [address] 200 [place] [address] [phone] Social History Tobacco Use Types Packs/Day Years [...] or relatives? How often do you attend confucianism or Patient refused 2021 sabianism services? Do you belong to any clubs or No 05/17/2022 organizations such as confucianism groups, unions, fraternal or athletic groups, or [...] this encounter Miscellaneous Notes Telephone Encounter - Kennedi Chris - 03/16/2022 12:15 PM CDT Michael, patient's case technician from [facility], is calling hoping to speak to someone on Dr. Polk's surgical team to ensure that the patient is receiving the correct post-op care. Patient is set up for post op appointments at the beginning of March here. However, Michael is looking to speak to someone over the phone to ensure the patient is on the right track. Please call [phone]. Thank you. documented in this encounter Plan of Treatment Not on filedocumented as of this encounter Visit Diagnoses Not on filedocumented in this encounter Additional Health Concerns Assessment Noted Time PHQ-9 Depression Total Score: 16 02/11/2021 12:00 AM C DT documented as of this encounter Care Teams Treating Engineer Relationship Specialty Start Date End Date Elsewhere, Pcp PCP - General Internal Medicine 12/25/21 documented as of this encounter
--- OUTSIDE RECORDS SUMMARY | 2022-07-06 14:48 | XMS_ITS | Encounter Summary ---
:1965 Author Organization [facility] Address [address] [place] [address] Care Team Providers Name Role Phone Elsewhere, Pcp Primary Care Provider Unavailable Encounter Details Date Type Department Care Team Description 03/02/2022 Orders Only Pharmacy Prior Auth Sarmad Solano [phone] Social History Tobacco Use Types Packs/Day Years [...] you attend restoration or Patient refused 2021 confucianist services? Do [...] documented as of this encounter Care Teams Car Body Inspector Relationship Specialty Start Date End Date Elsewhere, Pcp PCP - General Internal Medicine 12/25/21 documented as of this encounter
--- OUTSIDE RECORDS SUMMARY | 2022-07-06 14:48 | XMS_ITS | Encounter Summary ---
:1965 Author Organization [facility] Address [address] [place] [address] Care Team Providers Name Role Phone Elsewhere, Pcp Primary Care Provider Unavailable Encounter Details Date Type Department Care Team Description 03/03/2022 Orders Only Pharmacy Prior Auth Usha Maurer [phone] Social History Tobacco Use Types Packs/Day Years [...] you attend restorationist or Patient refused 2021 moravian services? Do [...] documented as of this encounter Care Teams Deputy General Counsel Relationship Specialty Start Date End Date Elsewhere, Pcp PCP - General Internal Medicine 12/25/21 documented as of this encounter
--- OUTSIDE RECORDS SUMMARY | 2022-07-06 14:48 | XMS_ITS | Encounter Summary ---
:1965 Author Organization [facility] Address [address] [place] [address] Care Team Providers Name Role Phone Elsewhere, Pcp Primary Care Provider Unavailable Encounter Details Date Type Department Care Team Description 03/12/2022 Orders Only Department of Melissa Mcdonald Arthroplas ty Total Orthopedic Surgery in M.D. Should er Replacement [place], [place] Status Post Left [address] [facility] (Primary Dx) [place] [address] Social History Tobacco Use Types Packs/Day Years [...] or relatives? How often do you attend orthodox or Patient refused 2021 sikh services? Do you belong to any clubs or No 05/17/2022 organizations such as orthodox groups, unions, fraternal or athletic groups, or [...] as of this encounter Visit Diagnoses Diagnosis Arthroplasty Total Shoulder Replacement Status Post Left - Primary documented in this encounter Additional Health Concerns Assessment Noted Time PHQ-9 Depression Total Score: 16 02/11/2021 12:00 AM C DT documented as of this encounter Care Teams Agricultural Engineering Technicians Relationship Specialty Start Date End Date Elsewhere, Pcp PCP - General Internal Medicine 12/25/21 documented as of this encounter
--- OUTSIDE RECORDS SUMMARY | 2022-07-06 14:49 | XMS_ITS | Encounter Summary ---
:1965 Author Organization [facility] Address [address] [place] [id number] Care Team Providers Name Role Phone Elsewhere, Pcp Primary Care Provider Unavailable Reason for Visit Outpatient (Routine) - Closed Specialty Diagnoses / Procedures Referred By Contact Refer red To Contact Infectious Diseases Diagnoses Aftercare [facility] [address] [place] [phone] Referral ID Status Reason Start Date Expiration Date Visits Requ ested Visits Authorized [id number] Closed 01/01/2022 01/01/2023 1 1 Encounter Details Date Type Department Care Team Description 02/25/2022 Comprehensive Visit Section of Christiano Nixon M.D. [address] [place] [phone] Assisted Antibiotic Treatment (Primary Dx); Infectious Diseases Russell Santos M.D. [address] [place] [phone] Infection Shoulder Prosthesis Subsequent ; in [place], Direct Infecti on Of Left Shoulder In Infectious And Parasitic Diseases Classified Elsewhere ([facility]); [place] Aftercare Total Shoulder Art hroplasty [address] [place] [phone] Social History Tobacco Use Types Packs/Day [...] you attend jainism or Patient refused 2021 shinto services? Do you belong to any clubs [...] place to sleep or slept in a jail (including now)? Education Answer Date Recorded What is the highest level of school Associate degree: [employer] pol[employer], 03/24/2021 you have completed or the highest technical, or vocational p rogram degree you have received? Sex Assigned at Date Recorded Female 03/01/2019 10:12 AM CDT documented as of this encounter Progress Notes Russell Santos M.D. - 02/25/2022 9:45 AM CDT Outpatient Orthopedic Infectious Disease-Subsequent Visit Note DEMOGRAPHIC INFORMATION Clinic Number:[id number] Patient Name: Angie Mosquera Age: 56 y.o. Birthdate: 1965 Sex: female Address: [address] [place] [phone] Referring Provider: Jose Guadalupe Nixon M.D. REASON FOR CONSULT We are asked to see Ms. Mosquera to give further recommendations for evaluation and management of shoulder arthroplasty infection SUBJECTIVE HISTORY OF PRESENT ILLNESS Angie Mosquera is a 56 y.o. female is being seen by Orthopedic Infectious Diseases for shoulder arthroplasty infection Patient well known to Ortho ID for details please see the most recent notes of Dr. Salvador and I colleagues copied below for convenience --- December 31, 2021 Ms. 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 ?? For complete details, please refer to primary service notes.?? In brief, the patient underwent primary TSA (2015) with reverse TSA revision (08/2020) complicated by MSSE s/p debridement and component retention (02/2021) with treatment with clindamycin given multiple antibiotic allergies. Given resistance profile, she was subsequently changed to IV vancomycin for 6 weeks at that time and was subsequently transitioned to PO doxycycline despite documented resistance on OSH AST. She presented to [facility] (unclear if on antibiotics) for further evaluation given persistent L shoulder pain 08/2021 prompting aspiration (09/25/21) which revealed elevated TNC (17876) with 81% PMNs with cultures positive for 1 colony of MSSE and detection of the same organism via broad range PCR.??Radiographically, glenoid components appeared loose and the patient agreed to proceed with two-stage exchange arranged for 12/30. ?? Patient underwent resection arthroplasty following MAYTE (12/29).?? Intraoperative findings were remarkable for reshma pus present in the shoulder with prosthesis removal and placement of antibiotic spacercoated with gentamicin and vancomycin cement following thorough debridement.??The patient was subsequently admitted to [facility] for further management. Intraoperative cultures and synovial fluid cultures are pending. ?? Since admission, she has remained hemodynamically stable and was initiated on IV cefazolin therapy postoperatively. On further review, she received perioperative prophylaxis with cefazolin. She has multiple documented antimicrobial allergies including amoxicillin, cephalosporins, and TMP-SMX but appears to be tolerating cefazolin while in hospital. 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 ?? 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 Overall, the patient has done well. Previous intraoperative cultures of isolated MSSE around the time of prior surgery which is consistent with aspiration results from original [facility] evaluation which is likely hostess party sales representative of the culprit organism causing her PJI. ?? For treatment as part of 2-stage exchange, we anticipate at least 6 weeks of targeted IV antimicrobial therapy pending intraoperative culture results.?As we await further information, it is appropriate to continue the patient on IV cefazolin as currently prescribed despite her history of cephalosporin allergy as she appears to have tolerated the medication well while in the hospital. At the time of dismissal, she can be transitioned to IV ceftriaxone to complete a 6 week course of therapy. ?? RECOMMENDATIONS: 1. Continue IV cefazolin 2g q8h. 2. Follow-up intraoperative culture results. 3. Anticipate 6 weeks of IV antimicrobial therapy via PICC line. 4. Please consult Care Management for coordination of IV antimicrobial therapy. 5. OK to place PICC line. 6. If intraoperative cultures return positive, please contact ID for further recommendations. ?? Infectious Disease Sign Off Note: Primary Team: 1. Sign off antibiotics: ?? Please consult care management for OPAT dismissal planning ?? Cefazolin 2g q8h IV while in hospital, stop at dismissal ?? Ceftriaxone 2g q24h IV at dismissal stop date known: stop date 02/11/22 2. Please arrange PICC catheter prior to discharge. 3. Monitoring lab recommendations: Yes, weekly on antibiotics. Complete blood count with differential, Alanine aminotransferase (ALT), Creatinine and Alkaline phosphatase Please fax to division of Infectious Diseases OPAT monitoring program at [phone] after dismissal. Primary service to follow labs while patient is hospitalized. [place] pharmacist to adjust dosing after dismissal 4. Other monitoring considerations: None Infectious Diseases: 1. PICC/Therapy: OK to remove PICC at end of therapy. 2. Follow up indicated: Indication for follow up: Clinical asessment prior to reimplantation following IV antimicrobial therapy. Follow up with orthopedic infectious diseases on prior to reimplantation. Priorities for scheduling: Provider: Schedule with Orthopedic Surgery. Orders for follow up visit: Imaging studies: Per Orthopedic Surgery. Laboratory studies: CBC, ESR, CRP. PICC removal can be scheduled here or removed locally after completion of therapy. February 25, 2022 Intraoperative cultures revealed methicillin-susceptible Staph epidermidis resistant to Bactrim susceptible to doxycycline in 1/4 cultures labeled synovial fluid after 4 days Patient finished ceftriaxone on February 11, 2022 PICC line was pulled Patient returns in anticipation of reimplantation arthroplasty February for 2021 Today she returns clinically doing well her shoulders he she still has some pain in the shoulder I reviewed with her that she tolerated her antibiotics in the hospital last time including post cefazolin and ceftriaxone Her PICC line function satisfactory although she did have some difficulty with a reaction to the adhesive tape She denies any fever chills sweats headaches earache sore throat cough dyspnea chest pain shortness of breath or diarrhea I reviewed with her that she has tolerated vancomycin doxycycline in the past I reviewed with her that we would have to watch cultures after surgery and if they turn positive it may or may not need she required IV antimicrobial therapy She told me that she has significant difficulty with anemia and often requires iron transfusion I did relay this to the primary surgical team given going into surgery her hemoglobin is 9.5 Past Medical History: Diagnosis Date ??? Anemia hx iron infusions ??? Anxiety Generalized Disorder ??? Arthritis ??? Asthma NOS ??? Cardiac Disease Hx PFO ??? Chronic Pain Syndrome ??? Fibromyalgia ??? Gastroesophageal Reflux Disease NOS ??? Migraine Headache ??? Pain Back ??? Personal History Unintended Awareness Under General Anesthesia ??? Post Operative Nausea/Vomiting ??? Stroke (HCC) 03/2019 ??? Transient Ischemic Attack MEDICATIONS Current Outpatient Medications on File Prior to Visit Medication Sig Dispense Refill ??? acetaminophen (TYLENOL) 500 mg capsule Take 2 capsules (1,000 mg total) by mouth every 6 (six) hours as needed for pain. Start the day of surgery. ??? albuterol (PROVENTIL HFA,VENTOLIN HFA) 90 mcg/actuation inhaler Inhale 2 puffs every 6 (six) hours as needed for wheezing or shortness of breath. ??? aspirin 325 mg tablet Take 1 tablet (325 mg total) by mouth daily. (Patient taking differently: Take 325 mg by mouth every evening. Pt holding for surgery) 90 tablet 3 ??? atorvastatin (LIPITOR) 80 mg tablet Take 1 tablet (80 mg total) by mouth at bedtime. 90 tablet 3 ??? Banophen 25 mg capsule Take 75 mg by mouth at bedtime. ??? benzonatate (TESSALON PERLES) 100 mg capsule Take 100 mg by mouth 3 (three) times a day as needed for cough. 6 ??? buPROPion XL (WELLBUTRIN XL) 150 mg 24 hr tablet Take 150 mg by mouth every morning. ??? fhmoyzpyji-lpclsuqpvyqzm-fqha (ESGIC) 50-325-40 mg per tablet Take 1 tablet by mouth every 6 (six) hours as needed for migraine. ??? cetirizine (ZyrTEC) 10 mg tablet Take 10 mg by mouth 2 (two) times a day. ??? cholecalciferol (VITAMIN D3) 125 mcg (5,000 Unit) tablet Take 125 mcg by mouth every morning. ??? cyanocobalamin, vitamin B-12, 2,500 mcg tablet, sublingual Place 2,500 mcg under the tongue every morning. 3 ??? diazePAM (VALIUM) 10 mg tablet Take 10 mg by mouth 2 (two) times a day. ??? esomeprazole (NexIUM) [address] capsule Take 40 mg by mouth 2 (two) times a day before breakfast and dinner. ??? Flovent HFA 110 mcg/actuation inhaler Inhale 2 puffs 2 (two) times a day. ??? FLUoxetine (PROzac) 40 mg capsule Take 80 mg by mouth every morning. ??? furosemide (LASIX) 40 mg tablet Take 40 mg by mouth 2 (two) times a day. ??? ipratropium-albuteroL (DUONEB) 0.5-2.5 mg/3 mL nebulizer solution Inhale 3 mL by nebulization 4 (four) times a day as needed for shortness of breath or wheezing. ??? lamoTRIgine (LaMICtal) 200 mg tablet Take 200 mg by mouth 2 (two) times a day. 3 ??? MAG-G 27 mg magnesium (500 mg) tablet Take 1 tablet by mouth at bedtime. 3 ??? meclizine (ANTIVERT) 25 mg tablet Take 25 mg by mouth every 6 (six) hours as needed for dizziness. ??? medical cannabis capsule Take 1-4 capsules by mouth 2 (two) times a day as needed (pain). THC component: 10 mg CBD component: 0 mg ??? medical cannabis oil inhalation Inhale as needed (pain). Vape THC: 5 mg dose - per pt ??? medical cannabis oil oral Take 1 each by mouth as needed (pain). 1 spray as needed. 5 mg THC ??? ondansetron ODT (ZOFRAN-ODT) 8 mg disintegrating tablet Take 1 tablet by mouth 3 (three) times aday as needed for nausea. ??? oxyCODONE (ROXICODONE) 5 mg immediate release tablet Take 1 tablet (5 mg total) by mouth every 4(four) hours as needed for moderate pain or score 4-6 of 10 or severe pain or score 7-10 of 10 Indication: Acute Pain Exception. For pain after surgery 40 tablet 0 ??? polyethylene glycol (MIRALAX) 17 gram/dose oral powder Take 17 g by mouth as needed for constipation. ??? pregabalin (LYRICA) 300 mg capsule Take 600 mg by mouth 2 (two) times a day. ??? QUEtiapine (SEROquel) 50 mg tablet Take 50 mg by mouth at bedtime. ??? sodium chloride 0.9 % injection Infuse 5 mL into a venous catheter every 8 (eight) hours. 30 each 5 ??? tiZANidine (ZANAFLEX) 4 mg tablet Take 4-8 mg by mouth every 8 (eight) hours as needed for muscle spasms. Muscle spasms 1 ??? valACYclovir (VALTREX) 500 mg tablet Take 500 mg by mouth as needed. Take 2 pills at onset of cold sore symptoms as needed ??? zonisamide (ZONEGRAN) 100 mg capsule Take 300 mg by mouth 2 (two) times a day. 8 No current facility-administered medications on file prior to visit. ANTI-INFECTIVE MEDICATIONS No current facility-administered medications for this visit. ALLERGIES Allergies Allergen Reactions ??? Adhesive Other (see comments) Adhesive they use to close during surgery. And Tagaderm ??? Adhesive Tape-Silicones Other (see comments) Dermabond (and 3 other glues) and Tagaderm ??? Amoxicillin Rash ??? Baclofen Rash ??? Benzoin Other (see comments) ??? Cefaclor Rash ??? Chlorhexidine Dermatitis and Other (see comments) Other reaction(s): Contact Dermatitis ??? Fentanyl Hallucinations Per patient, due to large dose ??? Nsaids (Non-Steroidal Anti-Inflammatory Drug) Other (see comments) Gastric bypass Gastric bypass ??? Pollen Extracts Other (see comments) Other Intolerances Line - Fentanyl causes hallucinations so not a true allergy.; Other reaction(s): Other (see comments), Runny Nose Other Intolerances Line - Fentanyl causes hallucinations so not a true allergy.; ??? Silver Other (see comments) Blisteres Other reaction(s): Contact Dermatitis, Other (see comments) Blisteres ??? Sulfamethoxazole-Trimethoprim Nausea Only and GI intolerance Stomach upset Other reaction(s): Gastrointestinal, GI Upset GI upset GI upset Stomach upset ??? Acyclovir Rash ??? Cephalosporins Rash ??? Gabapentin Other (see comments) Dropped things Feels weird Dropped things; Feels weird Other reaction(s): Other (see comments) Dropped things Feels weird Dropped things; Feels weird Dropped things Feels weird ??? Nortriptyline Palpitations And heart racing And heart racing And heart racing And heart racing SOCIAL HISTORY Social History Tobacco Use ??? Smoking status: Current Every Day Smoker Packs/day: 2.00 Years: 30.00 Pack years: 60.00 Types: Cigarettes Start date: 11/28/1977 ??? Smokeless tobacco: Never Used ??? Tobacco comment: Since teens, used to be 2 ppd, now 1/2 ppd. Roughly 40 pack year estimate Vaping Use ??? Vaping Use: current some days use Substance Use Topics ??? Alcohol use: No Comment: Daily caffeine ??? Drug use: Yes Types: Marijuana Comment: Medical marijuana REVIEW OF SYSTEMS See HPI The following portions of the patient's history were reviewed and updated as appropriate: allergies,current medications, family history, medical history, social history, surgical history and problem list. OBJECTIVE There were no vitals filed for this visit. PHYSICAL EXAMINATION Constitutional Appearance: Normal appearance. HENT Head: Normocephalic and atraumatic. Nose: Comments: Patient had a face mask on over the nose and mouth due to the COVID epidemic Mouth/Throat: Comments: Patient had a face mask on over the nose and mouth due to the COVID epidemic Eyes General: No scleral icterus. Pupils: Pupils are equal, round, and reactive to light. Musculoskeletal Comments: Patient's incision was well healed Skin General: Skin is warm and dry. Neurological General: No focal deficit present. Mental Status: She is alert and oriented to person, place, and time. Psychiatric Mood and Affect: Mood normal. Behavior: Behavior normal. Thought Content: Thought content normal. Judgment: Judgment normal. DIAGNOSTICS Laboratory and imaging reviewed. Pertinent findings include: CrCl cannot be calculated (Patient weight not recorded). LABORATORY Lab Results Component Value Date HGB 9.5 (L) 02/25/2022 WBC 5.2 02/25/2022 PLT 284 02/25/2022 LYMPHSABS 1.42 02/25/2022 NEUTROPHILS 3.14 02/25/2022 MONOSABS 0.39 02/25/2022 EOSABS 0.19 02/25/2022 BASOSABS <0.03 02/25/2022 CREATININE 0.87 02/25/2022 ALT 13 02/25/2022 CRP <3.0 02/25/2022 SEDRATE 8 02/25/2022 MICROBIOLOGY Microbiology Results (last 30 days) No results found for the last 720 hours. Lab Status: Edited Result - FINAL Specimen: Synovial Fluid, Left Shoulder Updated: 01/11/22 0755 Bacteria Cult, Aerobe/Anaerobe+Susc STAPHYLOCOCCUS EPIDERMIDIS Growth after 4 days ??Abnormal?? Comment: Semi-Urgent Result. Semi-Urgent This is a semi-urgent result??Semi-Urgent?? Narrative: ?? Bacterial Culture: Placed in Bactec aerobic and Bactec anaerobic bottles Susceptibility Staphylococcus epidermidis SUSCEPTIBILITY, SANDRA (MCG/ML) SUSCEPTIBILITY, BP (MCG/ML) Clindamycin >2 mcg/mL Resistant Daptomycin 0.5 mcg/mL Susceptible Doxycycline <=4 mcg/mL Susceptible Levofloxacin >4 mcg/mL Resistant 1 Linezolid <=2 mcg/mL Susceptible Minocycline <=4 mcg/mL Susceptible Oxacillin <=0.06 mcg/mL Susceptible 2 Rifampin <=0.5 mcg/mL Susceptible 3 Trimethoprim + Sulfamethoxazole >2/38 mcg/mL Resistant Vancomycin 2 mcg/mL Susceptible Component 11 mo ago Resulting Agency CULTURE RESULT??Abnormal?? [facility] CULTURE 1+ Staphylococcus coagulase negative [facility] GRAM STAIN ? 1+ PMNs [facility] GRAM STAIN ? No organisms seen [facility] GRAM STAIN ? [facility] Susceptibility Organism Antibiotic Susceptibility Staphylococcus coagulase negative OXACILLIN <=0.25: S Comment: Oxacillin susceptible should not be interpreted as penicillin or amoxicillin susceptible. Staphylococcus coagulase negative ERYTHROMYCIN >=8: R Staphylococcus coagulase negative CLINDAMYCIN >=8: R Staphylococcus coagulase negative TETRACYCLINE >=16: R Staphylococcus coagulase negative CEFAZOLIN S Staphylococcus coagulase negative VANCOMYCIN <=0.5: S Staphylococcus coagulase negative LEVOFLOXACIN >=8: R Staphylococcus coagulase negative TRIMETHOPRIM/SULF >=16/304: R RADIOLOGY No results found. ASSESSMENT / PLAN #1 Planned reimplantation arthroplasty left total shoulder February 26, 2022 Patient sed rate and CRP were normal Her CRP had previously been normal on September 23 but her sed rate had been 31 I counseled the patient, and the risk of persistent infection, risk of positive cultures after surgery, the need for oral antibiotics, confirm that she had taken doxycycline vancomycin and cefazolin without difficulty in the past and that if positive cultures occurred she may require IV antibiotics again I also counseled her and confirmed with Dr. 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 and implantation of antibiotic spacer December 30, 2021 Aspiration culture results revealed methicillin-susceptible Staph epidermidis she was treated with ceftriaxone through February 11, 2022 #3 History of primary L TSA (2015) requiring reverse TSA revision (08/2020) complicated by MSSE PJI s/p debridement and component retention (02/2021) treated with IV vancomycin followed by PO doxycycline for suppression Of note the prior isolate was in Care everywhere was tetracycline resistant but was not checked for doxycycline often tetracycline susceptibilities do not predict doxycycline susceptibility #4 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 Would use 1 dose of vancomycin 15 milligrams/kilos and 24 hours of cefazolin for perioperative prophylaxis 2. Intraoperatively please obtain 3 cultures for aerobes anaerobes 3. Decision regarding reimplantation arthroplasty to depend upon gross inspection by surgeon of tissues as well as their use of histopathology 4. On postop day 1 please obtain CBC differential basic metabolic panel and ALT. Please note my discussion with the primary team regarding her hemoglobin and previous discussion of anemia requiring iron transfusions in her past medical history that she documented to me 5. No need to consult inpatient Ortho ID if reimplantation occurs and cultures negative at time of implantation 6. Would dismiss the patient on doxycycline 100 mg orally b.i.d. until cultures are negative at 2 weeks 7. Please call Ortho ID if any of the cultures turn positive to discuss need for change in antibiotic regimen 8. Patient is currently not on anticoagulation, if warfarin were to be used please note the doxycycline potentiates the warfarin effect Treatment plan reviewed with Ms. Mosquera and her family. They expressed understanding. All questionsanswered to their satisfaction. Thank you for the consult. DIAGNOSES #1 Infection Shoulder Prosthesis Subsequent #2 Crystalizer Antibiotic Treatment #3 Direct Infection Of Left Shoulder In Infectious And Parasitic Diseases Classified Elsewhere (HCC) #4 Aftercare Total Shoulder Arthroplasty ORDERS Orders Placed This Encounter Procedures ??? Hepatic Function Panel ??? Basic Metabolic Panel Spent 36 minutes in total time both atpm-vm-ejeb and non iffu-bd-bgvs to face documented in this encounter Plan of Treatment Not on filedocumented as of this encounter Results Basic Metabolic Panel (02/25/2022 10:09 AM CDT) P athologist Signature Potassium, S 3.8 3.6 - 5.2 02/25/2022 DTL mmol/L 11:19 AM CDT Sodium, S 138 135 - 145 02/25/2022 DTL mmol/L 11:19 AM CDT Chloride, S 104 98 - 107 02/25/2022 DTL mmol/L 11:19 AM CDT Bicarbonate, S 22 22 - 29 02/25/2022 DTL mmol/L 11:19 AM CDT Anion Gap 12 7 - 15 02/25/2022 DTL 11:19 AM CDT BUN (Blood Urea 18 6 - 21 02/25/2022 DTL Nitrogen), S mg/dL 11:19 AM CDT Creatinine, S 0.87 0.59 - 1.04 02/25/2022 DTL mg/dL 11:19 AM CDT eGFR-Non 74 >=60 02/25/2022 DTL Black/ mL/min/BSA 11:19 AM CDT [place] Comment: ----ADDITIONAL INFORMATION---- Estimated GFR calculated using the 2009 CKD_EPI creatinine equation. eGFR-Black/ 85 >=60 mL/min/BSA 2021 11:19 AM CDT DTL Comment: ----ADDITIONAL INFORMATION---- Estimated GFR calculated using the 2009 CKD_EPI creatinine equation. Calcium, Total, S 8.8 8.6 - 10.0 mg/dL 02/25/2022 11:1 9 AM CDT DTL Glucose, S 79 70 - 140 mg/dL 02/25/2022 11:19 AM CDT DTL Specimen Anatomical Collection Method Collection Time Receive d Time (Source) Location / / Volume Laterality Blood (Blood, 02/25/2022 10:09 02/25/2022 Venous) AM CDT 11:00 AM CDT Russell Santos M.D. LAB BLOOD ADD-ON Performing Organization Address City/State/ZIP Code Phon e Number [facility] - [address] [place] [phone] [facility] [place] [address] Laboratories-[facility] [address] [facility] Hepatic Function Panel (02/25/2022 10:09 AM CDT) [facility] gist Method Time Signature Bilirubin, Total, S <0.2 <=1.2 02/25/2022 DTL mg/dL 11:19 AM CDT Bilirubin, Direct, S <0.2 0.0 - 0.3 02/25/2022 DTL mg/dL 11:19 AM CDT Aspartate 24 8 - 43 02/25/2022 DTL Aminotransferase U/L 11:19 AM CDT (AST), S Alanine 13 7 - 45 02/25/2022 DTL Aminotransferase U/L 11:19 AM CDT (ALT), S Alkaline 104 35 - 104 02/25/2022 DTL Phosphatase, S U/L 11:19 AM CDT Albumin, S 4.3 3.5 - 5.0 02/25/2022 DTL g/dL 11:19 AM CDT Protein, Total, S 6.7 6.3 - 7.9 02/25/2022 DTL g/dL 11:19 AM CDT Specimen Anatomical Collection Method Collection Time Receive d Time (Source) Location / / Volume Laterality Blood (Blood, 02/25/2022 10:09 02/25/2022 Venous) AM CDT 11:00 AM CDT Russell Santos M.D. LAB BLOOD ADD-ON Performing Organization Address City/State/ZIP Code Phon e Number [facility] - [address] [place], [place] [phone] [facility] [place] [address] Laboratories-[facility] [address] documented in this encounter Visit Diagnoses Diagnosis Crystalizer Antibiotic Treatment - Primary Infection Shoulder Prosthesis Subsequent Direct Infection Of Left Shoulder In Inf ectious And Parasitic Diseases Classified Elsewhere (HCC) Aftercare Total Shoulder Arthroplasty documented in this encounter Additional Health Concerns Assessment Noted Time PHQ-9 Depression Total Score: 16 02/11/2021 12:00 AM C DT documented as of this encounter Care Teams Care Management Associate Relationship Specialty Start Date End Date Elsewhere, Pcp PCP - General Internal Medicine 12/25/21 documented as of this encounter
--- OUTSIDE RECORDS SUMMARY | 2022-07-06 14:49 | XMS_ITS | Encounter Summary ---
:1965 Author Organization [facility] Address [address] [place] [address] Care Team Providers Name Role Phone Elsewhere, Pcp Primary Care Provider Unavailable Reason for Visit Reason Comments OPAT Intervention Encounter Details Date Type Department Care Team Description 01/28/2022 Clinical Communication Section of Ruth Eddy (Intervention Infectious T, R.N. ) Diseases in [address] [place] [phone] [place] [address] [place], [place] (Work) [phone] Social History Tobacco Use Types Packs/Day Years [...] or relatives? How often do you attend advent or Patient refused 2021 restorationism services? Do you belong to any clubs or No 05/17/2022 organizations such as advent groups, unions, fraternal or athletic groups, or [...] to sleep or slept in a senior care (including now)? Education Answer Date Recorded What is the highest level of school Associate degree: etta polo, 03/24/2021 you have completed or the highest technical, or vocational p narcisaram degree you have received? Sex Assigned at Date Recorded Female 03/01/2019 10:12 AM CDT documented as of this encounter Miscellaneous Notes Telephone Encounter - Su Greene, Pharm.D., R.Ph. - 02/01/2022 12:42 PM CST Mild alkaline phosphatase elevation with no recent baseline for comparison, continue with current OPAT plan and monitor weekly as we are for now to obtain ALP trend. SPLICER Telephone Encounter - Desirae Domingo R.N. - 02/01/2022 12:11 PM CST Maritza calls from [place] regarding Alk phos from 01/28. It is greater than 1.5 the upper limit of normal. SPLICER Telephone Encounter - Su Greene, Pharm.D., R.Ph. - 01/29/2022 8:49 AM CST Reviewed WBC trend including WBC on 01/28, no changes at this time, see note from my colleague Jennifer Roca for details. SPLICER Telephone Encounter - Ruth Eddy R.N. - 01/29/2022 8:14 AM CST OPAT NOTE ?? Infusion Provider: [facility], phone: [phone], fax: [phone] Labs and site care at [facility], phone: [phone] Antimicrobial(s) currently prescribed: See Med List Hyperlink in note Firm stop date: 02/11/22 ?? Lab results from are viewable in the MCR record--listed as External Labs (received via fax, which has been uploaded to Document Viewer/Media) ?? Interpretation and action: The labs were reviewed. WBC and ANC are improving. I will send this to the provider for review. SPLICER Telephone Encounter - Jennifer Roca Pharm.D., R.Ph. - 01/28/2022 10:21 AM FILM SPLICER Pertinent labs and antimicrobial regimen as indicated per chart review were assessed. Patient is on Ceftriaxone for Bone or joint Infection . CBC w/ Diff abnormality is moderate. WBC has decreased to 3.6, ANC remains greater than 1000. Lab abnormality evaluated and may be related to Cefazolin per pharmacist review. The dose of the antimicrobial(s) is not affected by the lab abnormality. Continue with the current antimicrobials at this time. For monitoring: continue weekly OPAT labs. SPLICER Telephone Encounter - Ruth Eddy RBrittonN. - 01/28/2022 9:40 AM CST OPAT NOTE Infusion Provider: [facility], phone: [phone], fax: [phone] Labs and site care at [facility], phone: [phone] Antimicrobial(s) currently prescribed: See Med List Hyperlink in note Firm stop date: 02/11/22 Lab results from 01/21/2022 are viewable in the MCR record--listed as External Labs (received via fax, which has been uploaded to Document Viewer/Media) Interpretation and action: The labs were reviewed. WBC is 3.6 and ANC is 1.42. Alk Phos was not done. [facility] Orders were sent to [facility] that included alk phos that will be drawn today, 01-28-2022. SPLICER documented in this encounter Plan of Treatment Not on filedocumented as of this encounter Procedures Procedure Name Priority Date/Time Associated Comments Diagnosis CBC WITH DIFFERENTIAL, B Routine 01/28/2022 3:00 Results for this PM FILM SPLICER procedure are i n the results section. ALANINE AMINOTRANSFERASE Routine 01/28/2022 3:00 Results for this (ALT), S/P PM FILM SPLICER procedure are i n the results section. ALKALINE PHOSPHATASE, Routine 01/28/2022 3:00 Res ults for this S/P PM FILM SPLICER procedure are i n the results section. CREATININE WITH EGFR, Routine 01/28/2022 3:00 Res ults for this S/P PM FILM SPLICER procedure are i n the results section. CBC WITH DIFFERENTIAL, B Routine 01/21/2022 Res ults for this procedure are i n the results section. ALANINE AMINOTRANSFERASE Routine 01/21/2022 Res ults for this (ALT), S/P procedure are i n the results section. CREATININE WITH EGFR, Routine 01/21/2022 Result s for this S/P procedure are i n the results section. documented in this encounter Results ALT (Alanine Aminotransferase) (01/28/2022 3:00 PM FILM SPLICER) athologist Signature EXT ALT 20 4 - 35 [facility] REFERRAL LAB Specimen (Source) Anatomical Location Collection Method / Collectio n Time Received Time / Laterality Volume Blood (Blood, Venous) Laly Ward APRN, C.N.P. LAB BLOOD ADD-ON Performing Organization Address City/State/ZIP Code Phon e Number [facility] REFERRAL LAB (ABNORMAL) Alkaline Phosphatase (01/28/2022 3:00 PM FILM SPLICER) athologist Signature EXT Alkaline 97 (A) 40 - 50 [facility] RE[facility] Phosphatase LAB Specimen (Source) Anatomical Location Collection Method / Collectio n Time Received Time / Laterality Volume Blood (Blood, Venous) Laly Ward APRN, C.N.P. LAB BLOOD ADD-ON Performing Organization Address City/[facility]/ZIP Code Phon e Number [facility] REFERRAL LAB Creatinine with Estimated GFR (01/28/2022 3:00 PM FILM SPLICER) athologist Signature EXT Creatinine 0.6 0.5 - 1.5 [facility] mg/dL LAB Specimen (Source) Anatomical Location Collection Method / Collectio n Time Received Time / Laterality Volume Blood (Blood, Venous) Narrative This result has an attachment that is no t available. Laly Ward APRN, C.N.P. LAB BLOOD ADD-ON Performing Organization Address City/[facility]/ZIP Code Phon e Number [facility] REFERRAL LAB (ABNORMAL) CBC with Differential, Blood (01/28/2022 3:00 PM FILM SPLICER) Analysis Performed At Patho logist Time Signature EXT Platelet 237 150 - 450 [facility] RE[facility]ERR[facility] Count LAB EXT Eosinophils 0.24 0 - 0.5 [facility] LAB EXT Hemoglobin 9.1 (A) 12 - 15.5 [facility] LAB EXT Absolute 2.08 1.7 - 7 [facility] Neutrophils LAB EXT White Blood 4.3 (A) 5.0 - 10.0 [facility] Cell (WBC) Count LAB Specimen (Source) Anatomical Location Collection Method / Collectio n Time Received Time / Laterality Volume Blood (Blood, Venous) Narrative This result has an attachment that is no t available. Laly Ward APRN, C.N.P. LAB BLOOD ADD-ON Performing Organization Address City/State/ZIP Code Phon e Number [facility] REFERRAL LAB ALT (Alanine Aminotransferase) (01/21/2022) athologist Signature EXT ALT 17 4 - 35 [facility] REFERRAL LAB Specimen (Source) Anatomical Location Collection Method / Collectio n Time Received Time / Laterality Volume Blood (Blood, Venous) Gucci Salvador M.D. LAB BLOOD ADD-ON Performing Organization Address City/State/ZIP Code Phon e Number [facility] REFERRAL LAB Creatinine with Estimated GFR (01/21/2022) P athologist Signature EXT Creatinine 0.7 0.5 - 1.5 [facility] mg/dL LAB Specimen (Source) Anatomical Location Collection Method / Collectio n Time Received Time / Laterality Volume Blood (Blood, Venous) Gucci Salvador M.D. LAB BLOOD ADD-ON Performing Organization Address City/State/ZIP Code Phon e Number [facility] RE[facility]ERRAL LAB (ABNORMAL) CBC with Differential, Blood (01/21/2022) Patholo gist Method Time Signature EXT Platelet 298 150 - 450 [facility] Count LAB EXT Eosinophils 0.28 0 - 0.5 [facility] RE[facility] LAB EXT Hemoglobin 9.7 (A) 12 - 15.5 [facility] LAB EXT Absolute 1.42 (A) 1.7 - 7 [facility] Neutrophils LAB EXT White Blood 3.6 (A) 5.0 - 10.0 [facility] Cell (WBC) Count LAB Specimen (Source) Anatomical Location Collection Method / Collectio n Time Received Time / Laterality Volume Blood (Blood, Venous) Gucci Salvador M.D. LAB BLOOD ADD-ON Performing Organization Address City/State/ZIP Code Phon e Number [facility] RE[facility] LAB documented in this encounter Visit Diagnoses Not on filedocumented in this encounter Additional Health Concerns Assessment Noted Time PHQ-9 Depression Total Score: 16 02/11/2021 12:00 AM C DT documented as of this encounter Care Teams Bobbin Drier Relationship Specialty Start Date End Date Elsewhere, Pcp PCP - General Internal Medicine 12/25/21 documented as of this encounter
--- OUTSIDE RECORDS SUMMARY | 2022-07-06 14:49 | XMS_ITS | Encounter Summary ---
:1965 Author Organization [facility] Address [address] [place] [address] Care Team Providers Name Role Phone Elsewhere, Pcp Primary Care Provider Unavailable Reason for Visit Reason Comments OPAT Lab request Encounter Details Date Type Department Care Team Description 01/26/2022 Clinical Communication Section of Ruth Eddy (Lab request) Infectious T, R.N. Diseases in [address] [place] [phone] [place] [address] [place], [place] (Work) [phone] Social History Tobacco Use Types Packs/Day Years [...] or relatives? How often do you attend jewish or Patient refused 2021 sikh services? Do you belong to any clubs or No 05/17/2022 organizations such as jewish groups, unions, fraternal or athletic groups, or [...] this encounter Miscellaneous Notes Telephone Encounter - Ruth Eddy RBrittonN. - 01/26/2022 4:13 PM CST [facility], phone: [phone] was called and message left to fax us lab results. Our fax and phone number was given. Y JUMP MASTER documented in this encounter Plan of Treatment Not on filedocumented as of this encounter Visit Diagnoses Not on filedocumented in this encounter Additional Health Concerns Assessment Noted Time PHQ-9 Depression Total Score: 16 02/11/2021 12:00 AM C DT documented as of this encounter Care Teams Tooth Grinder Relationship Specialty Start Date End Date Elsewhere, Pcp PCP - General Internal Medicine 12/25/21 documented as of this encounter
--- OUTSIDE RECORDS SUMMARY | 2022-07-06 14:49 | XMS_ITS | Encounter Summary ---
:1965 Author Organization [facility] Address [address] [place] [address] Care Team Providers Name Role Phone Elsewhere, Pcp Primary Care Provider Unavailable Reason for Referral Outpatient (Routine) - Authorized Specialty Diagnoses / Procedures Referred By Contact Refer red To Contact Diagnoses Biomedical Service Engineer Antibiotic Treatment Tejal Medley MPAS, P.A.-C., M.S. [address] [place] [phone] Referral ID Status Reason Start Expiration Visits Visits Date Date Requested Authorized [id number] Authorized Patient 02/08/2022 02/08/2023 1 1 Preference Reason for Visit Reason Comments OPAT Care Coordination Encounter Details Date Type Department Care Team Description 02/08/2022 Clinical Communication Section of Desirae Domingo (Care Infectious Diseases M, R.N. Coordination) in [place], [address] [place] [address] [place] [phone] [place], [place] [phone] (Work) [phone] Social History Tobacco Use Types Packs/Day Years [...] or relatives? How often do you attend mandaeism or Patient refused 2021 cheondoism services? Do you belong to any clubs or No 05/17/2022 organizations such as mandaeism groups, unions, fraMBS HOLDINGS or athletic groups, or school groups? How [...] this encounter Miscellaneous Notes Telephone Encounter - Desirae Domingo RBrittonN. - 02/08/2022 12:06 PM CDT Maritza calls from [employer] stop date of 02/11 for IV antibiotics. Maritza requests order be faxed to [facility] where patient has labs and PICC site care done. I called the [facility], .Pull PIC order can be faxed to [phone]. documented in this encounter Plan of Treatment Not on filedocumented as of this encounter Visit Diagnoses Diagnosis Fpc Antibiotic Treatment - Primary documented in this encounter Additional Health Concerns Assessment Noted Time PHQ-9 Depression Total Score: 16 02/11/2021 12:00 AM C DT documented as of this encounter Care Teams Assembler Wire Group Relationship Specialty Start Date End Date Elsewhere, Pcp PCP - General Internal Medicine 12/25/21 documented as of this encounter
--- OUTSIDE RECORDS SUMMARY | 2022-07-06 14:49 | XMS_ITS | Encounter Summary ---
:1965 Author Organization [facility] Address [address] [place] [address] Care Team Providers Name Role Phone Elsewhere, Pcp Primary Care Provider Unavailable Reason for Referral MRI/CAT/PET Scan (Routine) - Closed Specialty Diagnoses / Procedures Referred By Contact Refer red To Contact Radiology Diagnoses Painful Total Joint Arthroplasty Initial ([facility]) Michael Chino M.D. [facility] Procedures CT Shoulder Left without IV Contrast 200 [place] [address] Referral ID Status Reason Start Date Expiration Date Visits Requ ested Visits Authorized [id number] Closed 02/25/2022 02/25/2023 1 1 Reason for Visit MRI/CAT/PET Scan (Routine) - Closed Specialty Diagnoses / Procedures Referred By Contact Refer red To Contact Radiology Diagnoses Painful Total Joint Arthroplasty Initial ([facility]) Michael Chino M.D. [facility] Procedures CT Shoulder Left without IV Contrast 200 [place] [phone] Referral ID Status Reason Start Date Expiration Date Visits Requ ested Visits Authorized [id number] Closed 02/25/2022 02/25/2023 1 1 Encounter Details Date Type Department Care Team Description 02/25/2022 Hospital Encounter Department of Michael Chino Total Joint Radiology jimmy Celaya M.D. Arthroplasty In [facility] 200 [place] [address] Social History Tobacco Use Types Packs/Day Years [...] you attend mormon or Patient refused 2021 anglican services? Do you belong to any clubs or No 05/17/2022 organizations such as mormon groups, unions, [employer] or athletic groups, or school groups? How [...] place to sleep or slept in a fdc (including now)? Education Answer Date Recorded What [...] THC multivit-min/iron/folic/ Take 1 tablet by 0 [id number] (HAIR, SKIN AND mouth daily. NAILS ADVANCED [...] (two) times a day for 14 days. aspirin 325 mg tablet Take 1 tablet (325 mg 90 tablet 3 02/26/2022 total) by mouth daily. aspirin 325 mg tablet Take 1 tablet (325 mg 0 01/202202/26/2022 total) by mouth every evening. Banophen 25 mg capsule Take 75 mg by mouth 0 01/2702/26/2022 at bedtime. cefTRIAXone (ROCEPHIN) 2 g. 0 02/04/2022 100 mg/mL injection cyanocobalamin, vitamin Place 2,500 mcg under 3 0 02/08/2019 02/26/2022 B-12, 2,500 mcg tablet, the tongue every sublingual morning. Flovent HFA 110 Inhale 2 puffs 2 0 01/19/202111/2021 mcg/actuation inhaler (two) times a day. oxyCODONE (ROXICODONE) 5 Take 1 tablet (5 mg 40 tablet 0 02/26/2022 mg immediate release total) by mouth every tabletIndications: Acute 4 (four) hours as Pain Exception needed for moderate pain or score 4-6 of 10 or severe pain or score 7-10 of 10 Indication: Acute Pain Exception. For pain after surgery oxyCODONE (ROXICODONE) 5 Take 1-2 tablets 20 tablet 0 02/2605/18/2022 mg immediate release (5-10 mg total) by tabletIndications: Acute mouth every 4 (four) Pain Exception hours as needed for severe pain or score 7-10 of 10 (for pain not controlled by Tylenol.) Indication: Acute Pain Exception. sodium chloride 0.9 % Infuse 5 mL into a 30 each 5 202102/26/2022 injection venous catheter every 8 (eight) hours. Vitamin D3 125 mcg Take 1 tablet by 0 01/29/2022 02/26/2022 (5,000 unit) tablet mouth daily. documented as of this encounter Plan of Treatment Not on filedocumented as of this encounter Procedures Procedure Name Priority Date/Time Associated Comments Diagnosis CT SHOULDER LEFT RAD - Routine 02/25/2022 12:46 Painful Total Joint Results for this WITHOUT IV (most inpatients PM CDT Arthroplasty procedure a re in CONTRAST and all Initial (HCC) the results outpatients) section. documented in this encounter Results CT Shoulder Left without IV Contrast (02/25/2022 12:46 PM CDT) Anatomical Region Laterality Modality Shoulder, Upper Extremity, Left Computed Tacos graphy, Computed Musculoskeletal RST LOS, Musculoskeletal Tomography ARZ LOS, Muskuloskeletal FLA LOS Specimen (Source) Anatomical Collection Method Collection Time Re ceived Time Location / / Volume Laterality 02/25/2022 1:23 PM CDT Impressions 02/25/2022 1:28 PM CDT Resection arthroplasty left shoulder with antibiotic spacer. Bone loss in the glenoid with fragmentation inferiorly. Narrative 02/25/2022 1:28 PM CDT EXAM: ??CT SHOULDER LEFT WITHOUT IV CONTRAST 3D images were created on an independent workstation as ordered by the treating provider and reviewed by the radiologist to assist in treatment planning. COMPARISON: ??Radiographs 12/30/2021 FINDINGS: ??Noncontrast CT left shoulder with multiplanar 2-D reconstruction and 3-D models. Left shoulder arthroplasty resection wit h placement of antibiotic spacers. No evidence for hardware failure. Fragmentation of the inferior glenoid. C onsiderable glenoid bone loss from previous arthroplasty placement and resection. Narrowed subacromial space. Resection of the distal clavicle. Subscapularis atrophy. Glenohumeral joint effusion. Old left rib fracture. Procedure Note Saeid Nolen M.D. - 02/25/2022Formatt ing of this note might be different from the original. EXAM: CT SHOULDER LEFT WITHOUT IV CONTRA ST 3D images were created on an independent workstation as ordered by the treating provider and reviewed by the radiologist to assist in treatment planning. COMPARISON: Radiographs 12/30/2021 FINDINGS: Noncontrast CT left shoulder w ith multiplanar 2-D reconstruction and 3-D models. Left shoulder arthroplasty resection wit h placement of antibiotic spacers. No evidence for hardware failure. Fragmentation of the inferior glenoid. C onsiderable glenoid bone loss from previous arthroplasty placement and resection. Narrowed subacromial space. Resection of the distal clavicle. Subscapularis atrophy. Glenohumeral joint effusion. Old left rib fracture. IMPRESSION: Resection arthroplasty left shoulder wit h antibiotic spacer. Bone loss in the glenoid with fragmentation inferiorly. Michael NIELSON CT PROCEDURES documented in this encounter Visit Diagnoses Diagnosis Painful Total Joint Arthroplasty Initial (HCC) documented in this encounter Additional Health Concerns Infection Onset Date Last Indicated Resolved Time COVID19 Pending 02/25/2022 02/25/2022 02/25/2022 3:59 PM CDT Assessment Noted Time PHQ-9 Depression Total Score: 16 02/11/2021 12:00 AM C DT documented as of this encounter Care Teams Dog And Cat Food Cook Relationship Specialty Start Date End Date Elsewhere, Pcp PCP - General Internal Medicine 12/25/21 documented as of this encounter
--- OUTSIDE RECORDS SUMMARY | 2022-07-06 14:49 | XMS_ITS | Encounter Summary ---
:1965 Author Organization [facility] Address [address] [place] [address] Care Team Providers Name Role Phone Elsewhere, Pcp Primary Care Provider Unavailable Encounter Details Date Type Department Care Team Description 01/08/2022 Orders Only Pharmacy Prior Auth RO Elsewhere, Pcp [phone] Social History Tobacco Use Types Packs/Day Years [...] or relatives? How often do you attend yazidi or Patient refused 2021 jewish services? Do you belong to any clubs or No 05/17/2022 organizations such as yazidi groups, unions, fraternal or athletic groups, or [...] documented as of this encounter Care Teams Bottom Sander Relationship Specialty Start Date End Date Elsewhere, Pcp PCP - General Internal Medicine 12/25/21 documented as of this encounter
--- OUTSIDE RECORDS SUMMARY | 2022-07-06 14:49 | XMS_ITS | Encounter Summary ---
:1965 Author Organization [facility] Address [address] [place] [address] Care Team Providers Name Role Phone Elsewhere, Pcp Primary Care Provider Unavailable Reason for Referral Outpatient (Routine) - Closed Specialty Diagnoses / Procedures Referred By Contact Refer red To Contact Diagnoses Arthroplasty Total Shoulder Replacement Status Post Left Alfredo Herrera O.P.A.-C. [facility] Procedures DX Shoulder Left Ingrowth Series [address] Views [address] [place] [address] [phone] Referral ID Status Reason Start Date Expiration Date Visits Requ ested Visits Authorized [id number] Closed 02/25/2022 02/25/2023 1 1 Outpatient (Routine) - Closed Specialty Diagnoses / Procedures Referred By Contact Refer red To Contact Orthopedic Surgery Diagnoses Arthroplasty Total Shoulder Replacement Status Post Left Alfredo Herrera, [facility] nAh [address] [place] [phone] Referral ID Status Reason Start Date Expiration Date Visits Requ ested Visits Authorized [id number] Closed 02/25/2022 02/25/2023 1 1 Scheduling Instructions 6 wk f/u L TSA Reason for Visit Reason Comments Pre-visit Testing Orders Encounter Details Date Type Department Care Team Description 02/25/2022 Clinical Communication Department of Jam Pre- visit Testing Orthopedic Surgery Cyrus Souza M.D. Orders in [place], [address] [place], [place] [address] [facility] [address] [place], [place] [phone] (Work) [phone] Social History Tobacco Use Types Packs/Day Years [...] you attend baptist or Patient refused 2021 orthodoxy services? Do you belong to any clubs [...] Notes Telephone Encounter - Deann Watkins - 02/25/2022 8:12 AM CDT Please sign order documented in this encounter Plan of Treatment Scheduled Referrals Name Type Priority Associated Diagnoses Order S [facility] Orthopedic Surgery Outpatient Referral Routine Arthroplasty To beto Expected: Post Op (clinic) Shoulder Replacement 10/2022, Status Post Left Expires: 05/27/2023 documented as of this encounter Results DX Shoulder Left Ingrowth [...] No evidence for arthroplasty loosening. Alfredo Kamara [facility] documented in this encounter Visit Diagnoses Diagnosis Arthroplasty Total Shoulder Replacement Status Post Left - Primary Arthroplasty Total Shoulder Replacement Status Post Left documented in this encounter Additional Health Concerns Assessment Noted Time PHQ-9 Depression Total Score: 16 02/11/2021 12:00 AM C DT documented as of this encounter Care Teams Brewery Representative Relationship Specialty Start Date End Date Elsewhere, Pcp PCP - General Internal Medicine 12/25/21 documented as of this encounter
--- OUTSIDE RECORDS SUMMARY | 2022-07-06 14:49 | XMS_ITS | Encounter Summary ---
:1965 Author Organization [facility] Address [address] [place] [address] Care Team Providers Name Role Phone Elsewhere, Pcp Primary Care Provider Unavailable Encounter Details Date Type Department Care Team Description 01/01/2022 Episode Changes Section of Infectious Lin [facility] in [place], (Work ) [place] [address] [place] [address] Social History Tobacco Use Types Packs/Day [...] or relatives? How often do you attend hoahaoism or Patient refused 2021 episcopal services? Do you belong to any clubs or No 05/17/2022 organizations such as hoahaoism groups, unions, fraternal or athletic groups, or [...] place to sleep or slept in a chcf (including now)? Education Answer Date Recorded What [...] documented as of this encounter Care Teams Academic Interventionist Relationship Specialty Start Date End Date Elsewhere, Pcp PCP - General Internal Medicine 12/25/21 documented as of this encounter
--- OUTSIDE RECORDS SUMMARY | 2022-07-06 14:49 | XMS_ITS | Encounter Summary ---
:1965 Author Organization [facility] Address [address] [place] [address] Care Team Providers Name Role Phone Elsewhere, Pcp Primary Care Provider Unavailable Encounter Details Date Type Department Care Team Description 01/01/2022 Clinical Communication [facility] Pharm[facility] Sapna Dodge C.Ph.T. [address] [facility] [phone] [place], [place] (Work) [phone] Social History Tobacco Use [...] you attend holiness or Patient refused 2021 buddhism services? Do you belong to any clubs [...] documented as of this encounter Care Teams Mobile Application Architect Relationship Specialty Start Date End Date Elsewhere, Pcp PCP - General Internal Medicine 12/25/21 documented as of this encounter
--- OUTSIDE RECORDS SUMMARY | 2022-07-06 14:49 | XMS_ITS | Encounter Summary ---
:1965 Author Organization [facility] Address [address] [place] [address] Care Team Providers Name Role Phone Elsewhere, Pcp Primary Care Provider Unavailable Reason for Visit Reason Comments OPAT Normal Labs Encounter Details Date Type Department Care Team Description 01/15/2022 Clinical Communication Section of Madhav Rizo (Normal Labs) Infectious Diseases M, M.P.H., in [address] 200 [place] [phone] Social History Tobacco Use Types Packs/Day Years [...] or relatives? How often do you attend moravian or Patient refused 2021 tenriism services? Do you belong to any clubs or No 05/17/2022 organizations such as moravian groups, unions, fraternal or athletic groups, or [...] this encounter Miscellaneous Notes Telephone Encounter - Madhav Rizo M.P.H., R.N. - 01/15/2022 3:24 PM FIELD SPEC OPAT NOTE Infusion Provider: Dennis TA [facility], phone: [phone], fax: [phone] Labs and site care at [facility], phone: [phone] Antimicrobial(s) currently prescribed: See Med List Hyperlink in note Firm stop date: 02/11/22 Lab results from 01/14/2022 are viewable in the MCR record--listed as External Labs (received via fax, which has been uploaded to Document Viewer/Media) Interpretation and action: The labs were satisfactory and acceptable. No change in plan as per OPAT Practice Guideline. D SPEC documented in this encounter Plan of Treatment Not on filedocumented as of this encounter Procedures Procedure Name Priority Date/Time Associated Diagnosis Comme nts CBC WITH DIFFERENTIAL, B Routine 01/14/2022 Res ults for this procedure are i n the results section. ALANINE AMINOTRANSFERASE Routine 01/14/2022 Res ults for this (ALT), S/P procedure are i n the results section. CREATININE WITH EGFR, S/P Routine 01/14/2022 Re sults for this procedure are i n the results section. documented in this encounter Results ALT (Alanine Aminotransferase) (01/14/2022) athologist Signature EXT ALT 14 4 - 35 [facility] Specimen (Source) Anatomical Location Collection Method / Collectio n Time Received Time / Laterality Volume Blood (Blood, Venous) Laly Ward APRN, C.N.P. LAB BLOOD ADD-ON Performing Organization Address City/[facility] [place]/ZIP Code Phon e Number [facility] [address] [place] [address] Creatinine with Estimated GFR (01/14/2022) athologist Signature EXT Creatinine 0.6 0.5 - 1.5 [place] mg/dL [facility] Specimen (Source) Anatomical Location Collection Method / Collectio n Time Received Time / Laterality Volume Blood (Blood, Venous) Laly Ward APRN, C.N.P. LAB BLOOD ADD-ON Performing Organization Address City/[facility] [place]/ZIP Code Phon e Number [facility] [address] [place] [address] (ABNORMAL) CBC with Differential, Blood (01/14/2022) athologist Signature EXT Platelet 406 150 - 450 [facility] EXT Hemoglobin 9 (A) 12 - 15.5 [facility] EXT Absolute 3.49 1.7 - 7 [place] Neutrophils [facility] EXT White Blood 5.7 5.0 - 10.0 [place] Cell (WBC) Count [facility] Specimen (Source) Anatomical Location Collection Method / Collectio n Time Received Time / Laterality Volume Blood (Blood, Venous) Narrative This result has an attachment that is no t available. Laly Ward APRN, C.N.P. LAB BLOOD ADD-ON Performing Organization Address City/[facility] [place]/ZIP Code Phon e Number [facility] [address] [place] [address] documented in this encounter Visit Diagnoses Not on filedocumented in this encounter Additional Health Concerns Assessment Noted Time PHQ-9 Depression Total Score: 16 02/11/2021 12:00 AM C DT documented as of this encounter Care Teams Seat Installer Relationship Specialty Start Date End Date Elsewhere, Pcp PCP - General Internal Medicine 12/25/21 documented as of this encounter
--- OUTSIDE RECORDS SUMMARY | 2022-07-06 14:49 | XMS_ITS | Encounter Summary ---
:1965 Author Organization [facility] Address [address] [place] [address] Care Team Providers Name Role Phone Elsewhere, Pcp Primary Care Provider Unavailable Reason for Visit Outpatient (Routine) - Closed Specialty Diagnoses / Procedures Referred By Contact Refer red To Contact Orthopedic Surgery Diagnoses Pain Shoulder Left Alfredo Herrera, [facility] O.P.A.-C [address] [place] [phone] Referral ID Status Reason Start Date Expiration Date Visits Requ ested Visits Authorized [id number] Closed 12/30/2021 12/30/2022 1 1 Encounter Details Date Type Department Care Team Description 02/25/2022 Office Visit Department of Orthopedic Cyrus Polk , Pain Shoulder Left Surgery in [facility] [address] [place] [address] [address] [place] [phone] Social History Tobacco Use Types Packs/Day Years [...] or relatives? How often do you attend religion or Patient refused 2021 congregational services? Do you belong to any clubs or No 05/17/2022 organizations such as religion groups, SNRLabss, [employer]astar [employer] or athletic groups, or school groups? How [...] encounter H&P Notes Cyrus Polk M.D. - 02/25/2022 9:15 AM CDT SUBJECTIVE Angie Mosquera is a pleasant 56 y.o. female who returns today for evaluation of left shoulder pain. They note continued significant shoulder pain. PHYSICAL EXAMINATION General: Patient is in no acute distress. Patient has pain at the end range of motion. Previous incision is well healed. There is mild deficiency of the anterolateral deltoid. 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 We discussed operative and non-operative measures. We discussed risks, benefits, and alternatives of shoulder arthroplasty with the patient. Patient does understand the decision between hemiarthroplasty, total shoulder arthroplasty, and reverse arthroplasty is an intraoperative decision. The patient does understand the possibility of having positive cultures. We also reviewed postoperative rehabilitation and restrictions. Patient clearly understands the possibility ofcontinued pain and limitation of function despite operative intervention. Patient understands the pain and function could be worse after surgery. They do understand the possibility of additional revision surgery in the future. Again, risks, benefits, and alternatives of surgery were discussed with thepatient, and they do wish to proceed. Patient [...] surgery may involve the use of a medical physics teacher made by a [employer] or one of my partners have collaborated to design, develop, or improve orthopedic implants, instruments, or products. Both the [facility] and the individual surgeons involved receive royalty payments from the use of those specific devices at other institutions, but no royalties or any other payments are paid for the use of those devices with any [facility] patient. The clinical rationale for the use of those devices as well as the availability and applicability of alternative devices was reviewed. He understands that the final decision for the use of a specific medical physics teacher often is made at the time of surgery. All of his questions were answered; he understands and agrees with my approach to device selection and wants to proceed. documented in this encounter Plan of Treatment Not on filedocumented as of this encounter Visit Diagnoses Diagnosis Pain Shoulder Left documented in this encounter Additional Health Concerns Infection Onset Date Last Indicated Resolved Time COVID19 Pending 02/25/2022 02/25/2022 02/25/2022 3:59 PM CDT Assessment Noted Time PHQ-9 Depression Total Score: 16 02/11/2021 12:00 AM C DT documented as of this encounter Care Teams Brick Loader Relationship Specialty Start Date End Date Elsewhere, Pcp PCP - General Internal Medicine 12/25/21 documented as of this encounter
--- OUTSIDE RECORDS SUMMARY | 2022-07-06 14:49 | XMS_ITS | Encounter Summary ---
:1965 Author Organization [facility] Address [address] [place] [address] Care Team Providers Name Role Phone Elsewhere, Pcp Primary Care Provider Unavailable Reason for Visit Reason Comments OPAT Normal labs Encounter Details Date Type Department Care Team Description 02/09/2022 Clinical Communication Section of Ruth Eddy (Normal labs) Infectious T, R.N. Diseases in [address] [place] [phone] [place] [address] [place], [place] (Work) [phone] Social History Tobacco Use Types Packs/Day Years [...] or relatives? How often do you attend sikhism or Patient refused 2021 christianity services? Do you belong to any clubs or No 05/17/2022 organizations such as sikhism groups, unions, fraternal or athletic groups, or [...] Miscellaneous Notes Telephone Encounter - Ruth Eddy RRebekah. - 02/09/2022 10:19 AM CDT OPAT NOTE ?? Infusion Provider: Dennis TA [facility], phone: [phone], fax: [phone] Labs and site care at [facility], phone: [phone] Antimicrobial(s) currently prescribed: See Med List Hyperlink in note Firm stop date: 02/11/22 ?? Lab results from are viewable in the MCR record--listed as External Labs (received via fax, which has been uploaded to Document Viewer/Media) ?? Interpretation and action: .opaok documented in this encounter Plan of Treatment Not on filedocumented as of this encounter Visit Diagnoses Not on filedocumented in this encounter Additional Health Concerns Assessment Noted Time PHQ-9 Depression Total Score: 16 02/11/2021 12:00 AM C DT documented as of this encounter Care Teams Wood Heel Finisher Relationship Specialty Start Date End Date Elsewhere, Pcp PCP - General Internal Medicine 12/25/21 documented as of this encounter
--- OUTSIDE RECORDS SUMMARY | 2022-07-06 14:49 | XMS_ITS | Encounter Summary ---
:1965 Author Organization [facility] Address [address] [place] [address] Care Team Providers Name Role Phone Elsewhere, Pcp Primary Care Provider Unavailable Encounter Details Date Type Department Care Team Description 01/05/2022 Clinical Communication Section of Infectious Ed Laly Diseases in [place], , FOREIGN SERVICE OFFICER, C.N.P. [place] 200 [facility] 200 [place] [phone] Social History Tobacco Use Types Packs/Day Years [...] attend latter day or Patient refused 2021 zoroastrian services? Do [...] this encounter Miscellaneous Notes Telephone Encounter - Laly Ward APRN, C.N.P. - 01/05/2022 2:17 PM SUPERVISOR CIGAR MAKING HAND Left shoulder synovial fluid culture from 12/30 has been reported for growth of oxacillin sensitive Staphylococcus epidermidis. No change recommended to the patient's current regimen of ceftriaxone. RVISOR CIGAR MAKING HAND Telephone Encounter - Laly Ward APRN, C.N.P. - 01/05/2022 2:17 PM SUPERVISOR CIGAR MAKING HAND ----- Message from Su Greene, Pharm.D., R.Ph. sent at 01/05/2022 9:51 AM SUPERVISOR CIGAR MAKING HAND ----- Patient with shoulder infection (with previous ox-S CoNS) on an antimicrobial regimen of ceftriaxonex6 weeks. New culture (or susceptibility) result(s) of S.epidermidis. Ortho ID asked to be contactedif cultures turned positive in the notes. Let me know if any changes needed. A result from the stewardship report for cultures is attached for review. 1) Acknowledge by clicking on the blue hyperlink under the result in the Micro tab 2) If clinically relevant, use communication encounter to document your assessment in a note and place orders if needed. 3) For outpatients, if assistance needed with medication changes please message [facility] PHARM[facility]IST pool. If urgent, page [phone] M-F 9am-5 pm RVISOR CIGAR MAKING HAND documented in this encounter Plan of Treatment Not on filedocumented as of this encounter Visit Diagnoses Not on filedocumented in this encounter Additional Health Concerns Assessment Noted Time PHQ-9 Depression Total Score: 16 02/11/2021 12:00 AM C DT documented as of this encounter Care Teams Senior Director Relationship Specialty Start Date End Date Elsewhere, Pcp PCP - General Internal Medicine 12/25/21 documented as of this encounter
--- OUTSIDE RECORDS SUMMARY | 2022-07-06 14:49 | XMS_ITS | Encounter Summary ---
:1965 Author Organization [facility] Address [address] [place] [address] Care Team Providers Name Role Phone Elsewhere, Pcp Primary Care Provider Unavailable Reason for Visit Reason Comments Labs Only Encounter Details Date Type Department Care Team Description 02/05/2022 Documentation Section of Infectious Amna Kaur , Labs Only Diseases in [facility] 200 [facility] 200 [place] [phone] Social History Tobacco Use Types Packs/Day Years [...] attend roman catholic or Patient refused 2021 yazdanism services? Do you belong to any clubs [...] documented as of this encounter Progress Notes Amna Kaur, R.N. - 02/05/2022 4:14 PM CST Labs entered at this time. ICAL TECH documented in this encounter Plan of Treatment Not on filedocumented as of this encounter Procedures Procedure Name Priority Date/Time Associated Comments Diagnosis CBC WITH DIFFERENTIAL, B Routine 02/04/2022 3:06 Results for this PM CLINICAL TECH procedure are i n the results section. ALANINE AMINOTRANSFERASE Routine 02/04/2022 3:06 Results for this (ALT), S/P PM CLINICAL TECH procedure are i n the results section. ALKALINE PHOSPHATASE, Routine 02/04/2022 3:06 Res ults for this S/P PM CLINICAL TECH procedure are i n the results section. CREATININE WITH EGFR, Routine 02/04/2022 3:06 Res ults for this S/P PM CLINICAL TECH procedure are i n the results section. documented in this encounter Results ALT (Alanine Aminotransferase) (02/04/2022 3:06 PM CLINICAL TECH) P athologist Signature EXT ALT 20 4 - 35 OTHER (SPECIFY IN TRAVELING SALES EXECUTIVE) Specimen (Source) Anatomical Location Collection Method / Collectio n Time Received Time / Laterality Volume Blood (Blood, Venous) Resulting Agency Comment [facility] Gucci Salvador M.D. LAB BLOOD ADD-ON Performing Organization Address City/State/ZIP Code Phon e Number OTHER (SPECIFY IN TRAVELING SALES EXECUTIVE) OTHER (SPECIFY IN TRAVELING SALES EXECUTIVE) N/A Alkaline Phosphatase (02/04/2022 3:06 PM CLINICAL TECH) P athologist Signature EXT Alkaline 102 40 - 150 OTHER (SPECIFY Phosphatase IN TRAVELING SALES EXECUTIVE) Specimen (Source) Anatomical Location Collection Method / Collectio n Time Received Time / Laterality Volume Blood (Blood, Venous) Resulting Agency Comment [facility] Gucci Salvador M.D. LAB BLOOD ADD-ON Performing Organization Address City/State/ZIP [facility] Phon e Number OTHER (SPECIFY IN TRAVELING SALES EXECUTIVE) OTHER (SPECIFY IN TRAVELING SALES EXECUTIVE) N/A Creatinine with Estimated GFR (02/04/2022 3:06 PM CLINICAL TECH) P athologist Signature EXT Creatinine 0.7 0.5 - 1.5 OTHER (SPECIFY mg/dL IN TRAVELING SALES EXECUTIVE) Specimen (Source) Anatomical Location Collection Method / Collectio n Time Received Time / Laterality Volume Blood (Blood, Venous) Resulting Agency Comment [facility] Gucci Salvador M.D. LAB BLOOD ADD-ON Performing Organization Address City/[facility] Phon e Number OTHER (SPECIFY IN TRAVELING SALES EXECUTIVE) OTHER (SPECIFY IN TRAVELING SALES EXECUTIVE) N/A (ABNORMAL) CBC with Differential, Blood (02/04/2022 3:06 PM CLINICAL TECH) P athologist Signature EXT Platelet 253 150 - 450 OTHER Count (SPECIFY IN TRAVELING SALES EXECUTIVE) EXT Hemoglobin 9.1 (A) 12 - 15.5 OTHER (SPECIFY IN TRAVELING SALES EXECUTIVE) EXT White Blood 4.0 (A) 5.0 - 10.0 OTHER Cell (WBC) (SPECIFY IN Count TRAVELING SALES EXECUTIVE) Specimen (Source) Anatomical Location Collection Method / Collectio n Time Received Time / Laterality Volume Blood (Blood, Venous) Narrative This result has an attachment that is no t available. Resulting Agency Comment [facility] Gucci Hernandezk Lilian LAB BLOOD ADD-ON Performing Organization Address City/State/ZIP [facility] Phon e Number OTHER (SPECIFY IN TRAVELING SALES EXECUTIVE) OTHER (SPECIFY IN TRAVELING SALES EXECUTIVE) N/A documented in this encounter Visit Diagnoses Not on filedocumented in this encounter Additional Health Concerns Assessment Noted Time PHQ-9 Depression Total Score: 16 02/11/2021 12:00 AM C DT documented as of this encounter Care Teams Hostler Helper Relationship Specialty Start Date End Date Elsewhere, Pcp PCP - General Internal Medicine 12/25/21 documented as of this encounter
--- OUTSIDE RECORDS SUMMARY | 2022-07-06 14:49 | XMS_ITS | Encounter Summary ---
:1965 Author Organization [facility] Address [address] [place] [address] Care Team Providers Name Role Phone Elsewhere, Pcp Primary Care Provider Unavailable Reason for Visit Reason Comments OPAT Intervention Encounter Details Date Type Department Care Team Description 01/07/2022 Clinical Communication Section of MATTHEW Tolbert (Intervention) Infectious Diseases [facility] [phone] 200 [facility] (Work) [place] [address] Social History Tobacco Use Types Packs/Day Years [...] or relatives? How often do you attend rastafari or Patient refused 2021 judaism services? Do you belong to any clubs or No 05/17/2022 organizations such as rastafari groups, unions, fraternal or athletic groups, or [...] this encounter Miscellaneous Notes Telephone Encounter - Dandy Reyes, Pharm.D. - 01/12/2022 9:38 AM GEOPHYSICIST Pertinent labs and antimicrobial regimen as indicated per chart review were assessed. Patient is on Ceftriaxone for Bone or joint Infection . Creatinine with eGFR has improved to 0.5 mg/dL. The dose of the antimicrobial(s) is not affected by the lab abnormality and ceftriaxone does not require renal dose adjustments. Continue with the current antimicrobials at this time. For monitoring: continue weekly OPAT labs. Pharmacist extension of OPAT parameters: triage SCr to OPAT provider for review if increase >0.3 mg/dL and absolute value >1.0 mg/dL. HYSICIST Telephone Encounter - Steven Dennis R.N. - 01/12/2022 9:13 AM CST OPAT NOTE Infusion Provider: Dennis [facility], phone: [phone], fax: [phone] Labs and site care at [facility], phone: [phone] Antimicrobial(s) currently prescribed: See Med List Hyperlink in note Firm stop date: 02/11/22 Lab results from 01/07/22 are viewable in the MCR record--listed as External Labs (received via fax, which has been uploaded to Document Viewer/Media) Interpretation and action: Will send to the OPAT pharmacist to review the creatinine, which has decreased >30%. Alk phos wasnot drawn. HYSICIST documented in this encounter Plan of Treatment Not on filedocumented as of this encounter Procedures Procedure Name Priority Date/Time Associated Comments Diagnosis CBC WITH DIFFERENTIAL, B Routine 01/07/2022 2:30 Results for this PM GEOPHYSICIST procedure are i n the results section. ALANINE AMINOTRANSFERASE Routine 01/07/2022 2:30 Results for this (ALT), S/P PM GEOPHYSICIST procedure are i n the results section. CREATININE WITH EGFR, Routine 01/07/2022 2:30 Res ults for this S/P PM GEOPHYSICIST procedure are i n the results section. documented in this encounter Results ALT (Alanine Aminotransferase) (01/07/2022 2:30 PM GEOPHYSICIST) P athologist Signature EXT ALT 10 4 - 35 [facility]) Specimen (Source) Anatomical Location Collection Method / Collectio n Time Received Time / Laterality Volume Blood (Blood, Venous) Laly Ward APRN, C.N.P. LAB BLOOD ADD-ON Performing Organization Address City/[facility]/ZIP [facility] Phon e Number [facility], [address] [place] [id number] [facility]) Creatinine with Estimated GFR (01/07/2022 2:30 PM GEOPHYSICIST) Analysis Performed At Patho logist Time Signature EXT Creatinine 0.5 0.5 - 1.5 [place] mg/dL [facility]) Specimen (Source) Anatomical Location Collection Method / Collectio n Time Received Time / Laterality Volume Blood (Blood, Venous) Narrative This result has an attachment that is no t available. Laly Ward APRN, C.N.P. LAB BLOOD ADD-ON Performing Organization Address City/[facility]/ZIP [facility] Phon e Number [facility], [address] [place] [address] [place] [id number] [facility]) (ABNORMAL) CBC with Differential, Blood (01/07/2022 2:30 PM GEOPHYSICIST) [facility] gist Method Time Signature EXT Platelet 349 150 - 450 [facility], [facility]) EXT Eosinophils 0.28 0 - 0.5 [facility]) EXT Hemoglobin 8.7 (A) 12 - 15.5 [facility], [facility]) EXT Absolute 3.19 1.7 - 7 [place] Neutrophils [facility], [facility]) EXT White Blood 5.4 5.0 - [place] Cell (WBC) 10.0 [facility]) Specimen (Source) Anatomical Location Collection Method / Collectio n Time Received Time / Laterality Volume Blood (Blood, Venous) Narrative This result has an attachment that is no t available. Laly Ward APRN C.N.P. LAB BLOOD ADD-ON Performing Organization Address City/State/ZIP Code Phon e Number [facility], [address] [place] [id number] [facility]) documented in this encounter Visit Diagnoses Not on filedocumented in this encounter Additional Health Concerns Assessment Noted Time PHQ-9 Depression Total Score: 16 02/11/2021 12:00 AM C DT documented as of this encounter Care Teams Booster Pump Operator Relationship Specialty Start Date End Date Elsewhere, Pcp PCP - General Internal Medicine 12/25/21 documented as of this encounter
--- OUTSIDE RECORDS SUMMARY | 2022-07-06 14:49 | XMS_ITS | Encounter Summary ---
:1965 Author Organization [facility] Address [address] [place] [address] Care Team Providers Name Role Phone Elsewhere, Pcp Primary Care Provider Unavailable Reason for Referral MRI/CAT/PET Scan (Routine) - Closed Specialty Diagnoses / Procedures Referred By Contact Refer red To Contact Radiology Diagnoses Painful Total Joint Arthroplasty Initial ([facility]) Michael Chino M.D. [facility] Procedures CT Shoulder Left without IV Contrast [address] [place] [address] Referral ID Status Reason Start Date Expiration Date Visits Requ ested Visits Authorized [id number] Closed 02/25/2022 02/25/2023 1 1 Encounter Details Date Type Department Care Team Description 02/25/2022 Orders Only Department of Michael Chino, Painful T otal Joint Orthopedic Surgery in [place].Neri Arthro plasty Initial [place], [place] (FORM[facility]) [address] [place] [address] Social History Tobacco Use Types Packs/Day Years [...] you attend congregation or Patient refused 2021 shinto services? Do you belong to any clubs or No 05/17/2022 organizations such as congregation groups, [employer], [employer] or athletic groups, or school groups? How [...] in the glenoid with fragmentation inferiorly. Michael Chino M.D. IMGeronimo CT PROCEDURES documented in this encounter Visit Diagnoses Diagnosis Painful Total Joint Arthroplasty Initial (HCC) Painful Total Joint Arthroplasty Initial (HCC) documented in this encounter Additional Health Concerns Infection Onset Date Last Indicated Resolved Time COVID19 Pending 02/25/2022 02/25/2022 02/25/2022 3:59 PM CDT Assessment Noted Time PHQ-9 Depression Total Score: 16 02/11/2021 12:00 AM C DT documented as of this encounter Care Teams Drawer In Jacquard Loom Relationship Specialty Start Date End Date Elsewhere, Pcp PCP - General Internal Medicine 12/25/21 documented as of this encounter
--- OUTSIDE RECORDS SUMMARY | 2022-07-06 14:49 | XMS_ITS | Encounter Summary ---
:1965 Author Organization [facility] Address [address] [place] [address] Care Team Providers Name Role Phone Elsewhere, Pcp Primary Care Provider Unavailable Reason for Visit Reason Comments OPAT Monitoring Complete Encounter Details Date Type Department Care Team Description 02/12/2022 Clinical Communication Section of Kylie Siddiqui (Monitoring Infectious Diseases M, R.N. Complete) in [facility] [phone] [place] (Work) [address] [place] [phone] Social History Tobacco Use Types Packs/Day Years [...] you attend restorationist or Patient refused 2021 yazidi services? Do you belong to any clubs [...] this encounter Miscellaneous Notes Telephone Encounter - Kylie Siddiqui R.N. - 02/12/2022 2:04 PM CDT SUBJECTIVE CHIEF COMPLAINT / REASON FOR CALL OPAT (Monitoring Complete) Information Discussed Princess, a nurse from [place], called to see if any labs need to be drawn prior to removing the patient's PICC today. I reviewed the patient's ID sign off note dated 01/01/22 and see that the patient is scheduled for the recommended labs (to be scheduled for follow up visit) when she returns to see Ortho and Ortho ID on 02/25/22. Previous lab results (that I have available to review) appear to have been within protocol guidelines up to this point. Since patient's last antibiotic was administered yesterday, no further labs should be needed at this time. PLAN Disposition/Recommendation: Princess will remove the patient's PICC today. Information/Education: patient/caller able to teach back Caller agreeable to plan of care: yes The following references were used: nursing clinical judgement and previous plan of care date: 01/01/[address] Nixon The patient's OPAT Episode will now be completed and they will be removed from OPAT monitoring. documented in this encounter Plan of Treatment Not on filedocumented as of this encounter Visit Diagnoses Not on filedocumented in this encounter Additional Health Concerns Assessment Noted Time PHQ-9 Depression Total Score: 16 02/11/2021 12:00 AM C DT documented as of this encounter Care Teams Buncher Hand Relationship Specialty Start Date End Date Elsewhere, Pcp PCP - General Internal Medicine 12/25/21 documented as of this encounter
--- OUTSIDE RECORDS SUMMARY | 2022-07-06 14:49 | XMS_ITS | Encounter Summary ---
:1965 Author Organization [facility] Address [address] [place] [address] Care Team Providers Name Role Phone Elsewhere, Pcp Primary Care Provider Unavailable Encounter Details Date Type Department Care Team Description 02/26/2022 Surgery [facility] OR Cyrus Polk, ARTHROPLASTY REPLACEMENT [address] [facility] [place] [address] 200 [facility] [phone] [place] [address] Social History Tobacco Use Types Packs/Day Years [...] you attend confucianism or Patient refused 2021 presybeterian services? Do you belong to any clubs [...] or the highest technical, or vocational p [employer] degree you have received? Sex Assigned at Date Recorded Female 03/01/2019 10:12 AM CDT documented as of this encounter Last Filed Vital Signs Vital Sign Reading Time Taken Comments Blood Pressure 139/81 02/26/2022 2:45 PM CDT Pulse 64 02/26/2022 2:45 PM CDT Temperature 36.4 ??C (97.5 ??F) 02/26/2022 2:33 PM CDT Respiratory Rate 13 02/26/2022 2:45 PM CDT Oxygen Saturation 97% 02/26/2022 2:45 PM CDT Inhaled Oxygen Concentration - - Weight 68.7 kg (151 lb 7.3 oz) 02/26/2022 8:47 AM CDT Height 151 cm (4' 11.45) 02/26/2022 [...] THC multivit-min/iron/folic/ Take 1 tablet by 0 [id number] (HAIR, SKIN AND mouth daily. NAILS ADVANCED [...] - 02/27/2022 8:05 AM CDT [facility]: [facility] Admission Day: 02/26/2022 SUBJECTIVE POD1. [...] am until 6 pm, please page the [facility] pager at [phone] For urgent matters from 6 pm until 6 am, please page Ortho House at [phone] Michael Chino M.D. - 02/26/2022 3:03 PM CDT Orthopedic Service: [facility] Admission Day: 02/26/2022 SUBJECTIVE Patient seen [...] am until 6 pm, please page the [facility] pager at [phone] For urgent matters from 6 pm until 6 am, please page Arthur Smallwood at [phone] Clemente Buck, Pharm.D., R.Ph. - 02/26/2022 9:17 [...] Take 150 mg by mouth every morning. zhdhtzdinq-ebplzynwbezyq-noeg (ESGIC) 50-325-40 mg per tablet Past Week [...] 1 spray as needed. 5 mg THC multivit-min/iron/folic/[id number] (HAIR, SKIN AND NAILS ADVANCED ORAL) 02/25/2022 [...] (HCC) ??? Nicotine Dependence Unspecified ??? Other Care Home Current Drug Therapy ??? Direct Infection Of [...] Right Lives With: Alone Receives Help From: flight attendant/inflight manager, Family, Friend(s) ADL Assistance: Required assistance ADL Assistance Comments: Gets help from YARD COORDINATOR for her bath/shower and for her meals IADL/Homemaking Assistance: Required assistance IADL/Homemaking Assistance Comments: Gets help for housecleaning Driving: Independent Driving Comments: takes her cane and medical alert with her. Occupational Role: On disability Occupational Role Comments: Previously worked at a [employer] and [employer] Prior Mobility/Functional Transfers Level of [place]: Modified independent Previous Transfer/Mobility Assistance Comments: Patient [...] mask during therapy session: yes Outcome Measures -[facility] Inpatient Short Form: AM-[facility] Basic Mobility (V.2) How much [...] Climbing 3-5 steps with a railing?: None AM-[facility] Basic Mobility (V.2) Raw Score: 24 AM-[facility] Basic Mobility (V.2) Standardized Score: 57.68 Interpretation: Clinicians answer the AM-[facility] Inpatient Short Form based on [...] Prescriptions were sent and filled at the [facility] pharmacy. Catalina Mccloud R.N. - 02/27/2022 [...] elsewhere status post placement antibiotic spacer. A first aid trainer was necessary for one or more the [...] be placed with approximately 70% contact with [place] bone. The more superior aspect of the [...] of antibiotic spacer, implantation of reverse arthroplasty, [id number] Cyrus Polk M.D. CT CT Job ID: [id number] documented in this encounter Plan of Treatment [...] ALT (Alanine Aminotransferase) (02/26/2022 3:47 PM CDT) [facility] Method Time Signature Alanine 11 7 - [...] [facility] - [address] [place], [place] [address] [facility] [place] [address] Laboratories-[facility] [address] [facility] (ABNORMAL) Basic Metabolic Panel (02/26/2022 3:47 PM [...] 02/26/2022 DTL [place]/ mL/min/BSA 6:27 PM CDT [place] Island[place] Comment: ----ADDITIONAL INFORMATION---- Estimated GFR calculated [...] [facility] - [address] [place], [place] [address] [facility] [place] [address] [facility] 200 [facility] (ABNORMAL) CBC with Differential, Blood (02/26/2022 3:47 PM CDT) [facility] gist Method Time Signature Hemoglobin 8.8 [...] [facility] - [address] [place] [address] [facility] [place] [address] [facility] [address] [facility] DX Shoulder Left 1 View [...] / Anaerobe+Susc (02/26/2022 1:00 PM CDT) [facility] Method Time Signature Bacteria Cult, No growth 03/12/2022 DTL Aerobe/Anaerob after 14 2:02 PM CDT e+Susc days of incubation. Specimen Anatomical Collection Method Collection Time Receive d Time (Source) Location / / Volume Laterality Shoulder, Left 02/26/2022 1:00 PM 022 1:41 CDT PM CDT Comment: Specimen Source Site: Tissue 1 Narrative [facility] - [facility] - 03/12/2022 2:02 PM CDT Bacterial Culture: Placed in Bactec aero bic and Bactec anaerobic bottles Cyrus Polk M.D. LAB MICROBIOLOGY - GENERAL O RDERABLES Performing Organization Address City/[facility]/ZIP Code Phon e Number [facility] - [address] [place], [place] [address] [place] [address] [place], [place] [phone] [place] [address] Bacteria Cult, Aerobe / Anaerobe+Susc (02/26/2022 1:00 PM CDT) [facility] Method Time Signature Bacteria Cult, No growth 03/12/2022 DTL Aerobe/Anaerob after 14 2:02 PM CDT e+Susc days of incubation. Specimen Anatomical Collection Method Collection Time Receive d Time (Source) Location / / Volume Laterality Shoulder, Left 02/26/2022 1:00 PM 022 1:38 CDT PM CDT Comment: Specimen Source Site: Tissue 3 Narrative [facility] - 03/12/2022 2:02 PM CDT Bacterial Culture: Placed in Bactec aero bic and Bactec anaerobic bottles Cyrus Polk M.D. LAB MICROBIOLOGY - GENERAL O PATERASARAH Performing Organization Address City/[facility]/ZIP Code Phon e Number [facility] - [address] [place], [place] [address] [place] [address] Bacteria Cult, Aerobe / Anaerobe+Susc (02/26/2022 1:00 PM CDT) [facility] Method Time Signature Bacteria Cult, No growth 03/12/2022 DTL Aerobe/Anaerob after 14 2:02 PM CDT e+Susc days of incubation. Specimen Anatomical Collection Method Collection Time Receive d Time (Source) Location / / Volume Laterality Shoulder, Left 02/26/2022 1:00 PM 022 1:36 CDT PM CDT Comment: Specimen Source Site: Tissue 2 Narrative [facility] - 03/12/2022 2:02 PM CDT Bacterial Culture: Placed in Bactec aero bic and Bactec anaerobic bottles Cyrus Polk M.D. LAB MICROBIOLOGY - GENERAL O RDERASARAH Performing Organization Address City/State/ZIP Code Phon e Number [facility] - [address] [place] [address] Surgical Pathology, Frozen Lab (02/26/2022 1:00 PM CDT) Component Value Ref Test Analysis Performed Pathologis t Range Method Time At Signature 03/01/2022 METH 3:43 PM CDT Participated in Guerda Camacho 03/01/2022 METH ju Vasquez M.D. 3:43 PM CDT Interpretation -Pathology Resident [...] permanent sections. ??Grossed by Nan Ledezma M.S., PA([facility]). Block Summary A Left shoulder 03/01/2022 METH [...] Address City/State/ZIP Code Phon e Number [facility] - [address] [place] [address] [facility] [place] [address] documented in this encounter Visit Diagnoses Diagnosis Shoulder Joint Disorder Left Pain Shoulder Left Shoulder Joint Disorder Left documented in this [...] 02/26/2022 02/27/2022 acetaminophen tablet 1,000 mg (TYLENOL) 1714 (Given - Provider: Tanesha Butt)2238 (Given - Provider: Tanesha Butt) 0439 (Given - Provider: Lauren Mckeon R.N.)1104 (Given - Provider: Catalina Mccloud R.N.) 1,000 mg, oral, Every 6 hours, First dose on Tue02/26/22 at 1700 acetaminophen tablet 1,000 mg (TYLENOL) (COMPLETED) 1048 (Given - Provider: Donna Mercado R.NBritton) 1,000 mg, oral, Once, On Tue02/26/22 at 1045, For 1 dose, Pre-Op atorvastatin tablet 80 mg (LIPITOR) 2040 (Given - Provider: Tanesha Butt) 80 mg, oral, Daily at bedtime, First dose on Tue02/26/22 at 2100 buPROPion XL 24 hr tablet 150 mg (WELLBUTRIN XL) 0825 (Given - Provider: Catalina Mccloud RBrittonNBritton) 150 mg, oral, Every morning, First dose on Tue02/27/22 at 0900, Swallow whole. Do NOT crush, chew, or split tablet. ceFAZolin in dextrose (iso-os) IVPB 2 g (ANCEF) (COMPLETED) 2043 (New Bag - Provider: Tanesha Butt) 438 (New Bag - Provider: Lauren rosa RBrittonNBritton) 2 g, intravenous, at 200 mL/hr, Administ er over 30 Minutes, Every 8 hours, First dose on Tue02/26/22 at 2100, For 2 doses, Start within 8 hours of last IV dose., Drug Monitoring Program: Pharmacist to ad just medication dosing based on indicati on and drug clearance factors., Indications: Prophylaxis, surgical ceFAZolin injection 2,000 mg (ANCEF) (COMPLETED) 1247 (Given - Provider: Tejal Gonzalez RBetsy) 2,000 mg (rounded from 1,717.5 mg = [...] (CANCELED) 1829 (Given - Provider: Tanesha Butt) 001 (Not Given - Provider: Lauren garcia RBrittonNBritton - Reason: Contraindicated)0606 (Given - Provider: Lauren Mckeon RBrittonNBritton) 25 mg, oral, Every 6 hours, First dose on Tue02/26/22 at 1800 FLUoxetine capsule 80 mg (PROzac) 0825 (Given - Provider: Catalina Mccloud, R.N.) 80 mg, oral, Daily, First dose on 01/19 at 0900, FLUoxetine orderable was interchanged for FLUoxetine tablet/capsule fluticasone furoate 100 mcg/actuation inhaler 1 puff (ARNUITY EL LIPTA) 0830 (Not Given - Provider: Catalina Mccloud, R.N. - Reason: Patient/family refused) 1 puff, inhalation, Daily, First dose on Tue02/27/22 at 0900, Rinse mouth with water after [...] Butt) 0825 (Given - Provider: Catalina lerma R.N.) 200 mg, oral, 2 times daily, First dose on Tue02/26/22 at 2100 midazolam (PF) injection 1 mg (VERSED) (COMPLETED) 1137 (Given - Provider: Donna Mercado RBrittonNBritton) 1 mg, intravenous, Once, On Tue02/26/22 at 1045, For 1 dose, Pre- Op ondansetron (PF) injection 4 mg (ZOFRAN) (COMPLETED) 1203 (Given - Provider: Donna Mercado RBrittonNBritton) 4 mg, intravenous, Once, On Tue02/26/22 at 1215, For 1 dose, Pre- Op pantoprazole DR tablet 40 mg (PROTONIX) 1714 (Given - Provider: Tanesha Butt) 0610 (Given - Provider: Lauren Mckeon R.NBritton) 40 mg, oral, 2 times daily before breakf ast and dinner, First dose on Tue02/26/22 at 1600, pantoprazole 40 mg oral twice daily was interchanged for esomeprazole 20 or 40 mg oral twice daily Swallow whole. Do NOT crush, chew, or split tablet. pregabalin capsule 600 mg (LYRICA) 2041 (Given - Provider: Tanesha Btut) 0825 (Given - Provider: Catalina Mccloud RBrittonNBritton) 600 mg, oral, 2 times daily, First [...] 0825 (Given - Provider: Catalina lerma R.NBritton) 300 mg, oral, 2 times daily, First dose on Tue02/26/22 at 2100, Swallow whole. Do NOT crush, chew or open capsule. Continuous Medication Order 02/25/2022 02/26/2022 02/27/2022 lactated ringers 1609 (New Bag - Provider: Chari Butt) 0131 (New Bag - Provider: Denise Novak RBetsy, ONC) 75 mL/hr, intravenous, Continuous, Start ing on Tue02/26/22 at 1500, Until patient has 500cc po intake lactated ringers (CANCELED) 1129 (New Ba g - Provider: Donna Mercado RBrittonNBritton)1212 (Stopped - Provider: Tejal Gonzalez RBetsy) 20 mL/hr, intravenous, Continuous, Starting on Tue02/26/22 at 104 5, Pre-Op lactated ringers 1437 (Continued from OR - Provi marquis: Guillermina Onelil R.NBritton) 20 mL/hr, intravenous, Continuous, Start ing [...] calcium (TUMS) 1007 (Given - Provider: Catalina Mccloud, R.N.) 400 mg of calcium, oral, Every 2 hour OH N, indigestion, Starting on Tue02/26/22 at 1451, [...] 6 hours PRN, itching, allergies, Starting on Tue02/27/22 at 0815 fentaNYL injection 25 mcg (SUBLIMAZE) (CANCELED) 1508 (Given - Provider: Guillermina Oneill, R.N.) 25 mcg, intravenous, Every 2 min PRN, Fo r pain 4 or greater (maximum 100 mcg). If max dose of Fentanyl is reached and if pain is greater than 4, discontinue Fentanyl: give Hydromorphone, Starting on Tue02/26/22 at 1436, PACU (only) fentaNYL injection 50 mcg (SUBLIMAZE) (CANCELED) 1136 (Given - Provider: Donna Mercado R.N.) 50 mcg, intravenous, Every 2 min PRN, se dation, Starting on Tue02/26/22 at 1042, Pre-Op, Up to maximum total dose of 200 mcg HYDROmorphone (PF) injection 0.2 mg (DILAUDID) (COMPLETED) 0433 (Given - Provider: Lauren Mckeon R.N.) 0.2 mg, intravenous, Every 2 hour PRN, s evere pain or score 7-10 of 10, Starting on Tue02/27/22 at 0411, For 1 dose ipratropium-albuteroL 0.5-2.5 [...] (ROXICODONE) (COMPLETED) 1504 (Given - Provider: Guillermina Oneill, R.N.) 10 mg, oral, Once as needed, For [...] Butt) 0130 (Given - Provider: Denise Novak RBetsy, ONC)0433 (Given - Provider: Lauren Mckeon R.N.)0743 (Given - Provider: Catalina Mccloud RBrittonN.) 10 mg, oral, Every 3 hours PRN, severe p ain or score 7-10 of 10, Starting on Tue02/26/22 at 1818 oxyCODONE IR tablet 10 mg (ROXICODONE)(Linked Group 1) 1104 (See Alternative - Provider: Catalina Mccloud, R.N.) 10 mg, oral, Every 3 hours PRN, moderate pain or score 4-6 of 10, Starting on Tue02/27/22 at 0907, If patient is >75 consider changing to 2.5-5mg scale oxyCODONE IR tablet 15 mg (ROXICODONE)(Linked Group 1) 1104 (Given - Provider: Catalina Mccloud R.NBritton) 15 mg, oral, Every 3 hours PRN, [...] documented as of this encounter Care Teams Digital Strategy Specialist Relationship Specialty Start Date End Date Elsewhere, Pcp PCP - General Internal Medicine 12/25/21 documented as of this encounter
--- OUTSIDE RECORDS SUMMARY | 2022-07-06 14:49 | XMS_ITS | Encounter Summary ---
:1965 Author Organization [facility] Address [address] [place] [address] Care Team Providers Name Role Phone Elsewhere, Pcp Primary Care Provider Unavailable Encounter Details Date Type Department Care Team Description 01/08/2022 Clinical Communication Pharmacy Prior Auth ОЛЬГА Carrera M.D. [phone] Social History Tobacco Use Types Packs/Day Years [...] you attend scientology or Patient refused 2021 tenriism services? Do [...] completed or the highest technical, or vocational camelia lopez degree you have received? Sex Assigned at Date Recorded Female 03/01/2019 10:12 AM CDT documented as of this encounter Miscellaneous Notes Telephone Encounter - Shanna Sullivan - 01/08/2022 5:13 AM CST Images from the original note were not included. The patient's health insurer has denied prior authorization for OXYCODONE HCL 5 MG A quick view of the denial reason is in this communication message. To view the denial letter: 1. Go [...] Camelia CINTRON. Thank you, The OPP[facility] Team [facility] documented in this encounter Plan of Treatment Not on filedocumented as of this encounter Visit Diagnoses Not on filedocumented in this encounter Additional Health Concerns Assessment Noted Time PHQ-9 Depression Total Score: 16 02/11/2021 12:00 AM C DT documented as of this encounter Care Teams Scrap Metal Collector Relationship Specialty Start Date End Date Elsewhere, Pcp PCP - General Internal Medicine 12/25/21 documented as of this encounter
--- OUTSIDE RECORDS SUMMARY | 2022-07-06 14:49 | XMS_ITS | Encounter Summary ---
:1965 Author Organization [facility] Address [address] [place] [address] Care Team Providers Name Role Phone Elsewhere, Pcp Primary Care Provider Unavailable Reason for Referral Outpatient (Routine) - Closed Specialty Diagnoses / Procedures Referred By Contact Refer red To Contact Infectious Diseases Diagnoses Aftercare Total Shoulder Arthroplasty Jose Guadalupe Nixon [place] M.D. 200 [place] [address] Referral ID Status Reason Start Date Expiration Date Visits Requ ested Visits Authorized [id number] Closed 01/01/2022 01/01/2023 1 1 CIDE SQUAD COMMANDING OFFICER Reason for Visit Reason Comments OPAT Post Hospital Follow-up Encounter Details Date Type Department Care Team Description 01/01/2022 Clinical Communication RST HIM MATTHEW Nixon; Post Hospital [address] [place] [address] Jose Guadalupe Garcia M.D. Follow-up [place], [place] [address] [place] [phone] [place] [address] Social History Tobacco Use Types Packs/Day Years [...] you attend gnosticist or Patient refused 2021 taoism services? Do you belong to any clubs or No 05/17/2022 organizations such as gnosticist groups, unions, fraShuropody or athletic groups, or school groups? How [...] Name Type Priority Associated Diagnoses Order S [facility] Infectious Disease Outpatient Routine Aftercare Total 1 Occu rrences - Ortho consult Referral Shoulder starting 02/2022 (clinic) Arthroplasty until 3 documented as of this encounter Results Sedimentation Rate (02/25/2022 10:09 AM CDT) Analysis Performed At Patho logist Time Signature Sedimentation 8 2 - 22 02/25/2022 DTL Rate, B mm/h 11:10 AM CDT Specimen Anatomical Collection Method Collection Time Receive d Time (Source) Location / / Volume Laterality Blood (Blood, 02/25/2022 10:09 02/25/2022 Venous) AM CDT 10:21 AM CDT Jose Guadalupe Nixon M.D. LAB BLOOD ADD-ON Performing Organization Address City/State/[facility] Phon e Number [facility] - [address] [place] [address] [address] CRP (C-Reactive Protein) (02/25/2022 10:09 AM CDT) P athologist Signature C-Reactive <3.0 <=8.0 mg/L 02/25/2022 DTL Protein (CRP), 11:34 AM CDT S Specimen Anatomical Collection Method Collection Time Receive d Time (Source) Location / / Volume Laterality Blood (Blood, 02/25/2022 10:09 02/25/2022 Venous) AM CDT 11:00 AM CDT Jose Guadalupe Nixon M.D. LAB BLOOD ADD-ON Performing Organization Address [facility] Phon e Number [facility] - [address] (ABNORMAL) CBC with Differential, Blood (02/25/2022 10:09 AM CDT) Patholo gist Method Time Signature Hemoglobin 9.5 (L) 11.6 - 02/25/2022 DTL 15.0 g/dL 10:29 AM CDT Hematocrit 30.6 (L) 35.5 - 02/25/2022 DTL 44.9 % 10:29 AM CDT Erythrocytes 3.66 (L) 3.92 - 02/25/2022 DTL 5.13 10:29 AM CDT x10(12)/L MCV 83.6 78.2 - 02/25/2022 DTL 97.9 fL 10:29 AM CDT RBC Distrib Width 17.0 (H) 12.2 - 02/25/2022 DTL 16.1 % 10:29 AM CDT Platelet Count 284 157 - 371 02/25/2022 DTL x10(9)/L 10:29 AM CDT Leukocytes 5.2 3.4 - 9.6 02/25/2022 DTL x10(9)/L 10:29 AM CDT Neutrophils 3.14 1.56 - 02/25/2022 DTL 6.45 10:29 AM CDT x10(9)/L Lymphocytes 1.42 0.95 - 02/25/2022 DTL 3.07 10:29 AM CDT x10(9)/L Monocytes 0.39 0.26 - 02/25/2022 DTL 0.81 10:29 AM CDT x10(9)/L Eosinophils 0.19 0.03 - 02/25/2022 DTL 0.48 10:29 AM CDT x10(9)/L Basophils <0.03 0.01 - 02/25/2022 DTL 0.08 10:29 AM CDT x10(9)/L Specimen Anatomical Collection Method Collection Time Receive d Time (Source) Location / / Volume Laterality Blood (Blood, 02/25/2022 10:09 02/25/2022 Venous) AM CDT 10:21 AM CDT Jose Guadalupe Nixon M.D. LAB BLOOD ADD-ON Performing Organization Address City/State/ZIP Code Phon e Number [facility] - [address] [place], [place] [address] [facility] [place] [address] Laboratories-[facility] [address] documented in this encounter Visit Diagnoses Diagnosis Aftercare Total Shoulder Arthroplasty - Primary documented in this encounter Additional Health Concerns Assessment Noted Time PHQ-9 Depression Total Score: 16 02/11/2021 12:00 AM C DT documented as of this encounter Care Teams Tactical Air Control Party Relationship Specialty Start Date End Date Elsewhere, Pcp PCP - General Internal Medicine 12/25/21 documented as of this encounter
--- OUTSIDE RECORDS SUMMARY | 2022-07-06 14:49 | XMS_ITS | Encounter Summary ---
:1965 Author Organization [facility] Address [address] [place] [address] Care Team Providers Name Role Phone Elsewhere, Pcp Primary Care Provider Unavailable Reason for Visit Reason Comments OPAT Care Coordination Encounter Details Date Type Department Care Team Description 01/22/2022 Clinical Communication Section of Steven Dennis (Care Infectious Diseases E, R.N. Coordination) in [address] [place] [phone] [place], [place] [phone] (Work) [phone] Social History Tobacco Use Types Packs/Day Years [...] or relatives? How often do you attend judaism or Patient refused 2021 church services? Do you belong to any clubs or No 05/17/2022 organizations such as judaism groups, unions, fraternal or athletic groups, or [...] this encounter Miscellaneous Notes Telephone Encounter - Steven Dennis RBrittonNBritton - 01/25/2022 9:11 AM CST Per Shae Torres PA-C, In that case, she might need a PICC placed in the chest. These need to be placed by IR. ??Is she able to come to [place] for IR PICC placement? ??If not, we'll need to see if we can find a place locally to place one. ??The other trouble is that she may end up with a similar reaction if a hypoallergenic dressing is not used. ??I placed an order for an IR PICC. ??She might needa peripheral over the weekend until this line can be placed. I spoke to Carolynn, the nurse at [facility]. She spoke to their wound care nurse and she would liketo try some different dressings first before they move the PICC to the chest. They cannot place a PICC in the chest in [place], so if needed, the patient would have to come to [place]. The patientwill be there at 2 pm today. She will call back with the patient so we all can come up with a plan together. Addendum: We missed a call from Carolynn, infusion nurse at [facility]. Her message stated that PICCsite care was performed and the site looks better. The wound care team has a plan and is hoping thatblessinge can keep her current PICC. EME [facility] JUSTICE Telephone Encounter - Tejal Rudolph R.N. - 01/22/2022 4:[address] JUSTICE I have been unable to reach the patient, but I notified nurse Carolynn at [facility] of Dr. Boris Chaidez's recommendation, that they could try moving the line to the other arm and use a midline but avoid a chest PICC. I faxed the order for midline placement. Nurse Carolynn at [place] questioned whether the midline could be moved to the other (left) arm, because patient wears a sling on that arm. EME COURT JUSTICE Telephone Encounter - Steven Dennis R.N. - 01/22/2022 2:50 PM CST SUBJECTIVE CHIEF COMPLAINT / REASON FOR CALL OPAT (Care Coordination) Information Discussed Patient calls stating her PICC line has been very itchy since she was discharged from the hospital. There is a rash where the dressing is and now it has blisters that have broke open. She did get a special dressing from [facility] to use, but it doesn't seem to be helping. Dressing was changed at [facility] today and they applied some guaze to help with the drainage. The [facility] nurse told the patient that they should move the PICC line to a new location and the patientsuggested moving it to the chest, because the skin on her arms is so thin and flabby and she thinks that the removal of the dressing from her sensitive skin is causing the irritation. PLAN Disposition/Recommendation: Will send to the ID provider to see if they would like her to have a newPICC inserted and if it should be in the arm or the chest. She is on antibiotics until 02/11. 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
--- OUTSIDE RECORDS SUMMARY | 2022-07-06 14:50 | XMS_ITS | Encounter Summary ---
:1965 Author Organization [facility] Address [address] [place] [address] Care Team Providers Name Role Phone Elsewhere, Pcp Primary Care Provider Unavailable Encounter Details Date Type Department Care Team Description 12/29/2021 Hospital Encounter Department of Alfredo Herrera ative Exam; Radiology, Clifton GonzalesPEmilioCBritton Painful Total Joint Arthroplasty Initial ([facility]) Building, in [address] [place] [phone] [place] [address] [place], [place] (Work) [phone] Social History Tobacco Use Types Packs/Day Years Used Date Smoking Tobacco: Every Day Cigarettes 2 30 S tarted: 11/28/1977 Smokeless Tobacco: Never Comments: Since teens, used to be 2 ppd, now 1/2 ppd. Roughly 40 pack year estimate Alcohol Use Standard Drinks/Week Comments No 0 (1 standard drink = 0.6 oz pure alcoho l) Alcohol Habits Answer Date Recorded How often do you have a drink containing alcohol? Never 05/17/2022 How many drinks containing alcohol do you have on a Patient refused 10/02/2019 typical day when you are drinking? How often do you have six or more drinks on one Never 10/02/2019 occasion? Comment: Not asked Social Isolation Answer Date Recorded In a typical week, how many times do you More than three abrahan es a week 05/17/2022 talk on the phone with family, friends, or neighbors? How often do you get together with friends More than three t imes a week 05/17/2022 or relatives? How often do you attend jainism or Patient refused 2021 quaker services? Do [...] THC multivit-min/iron/folic/ Take 1 tablet by 0 [id number] (HAIR, SKIN AND mouth daily. NAILS ADVANCED [...] mg capsule 2 (two) times a day. cefTRIAXone in dextrose, Infuse 50 mL (2 g 2049 mL 0 /02/202202/11/2022 iso-osm, (ROCEPHIN) 2 total) into a venous gram/50 mL IVBP catheter daily. doxycycline hyclate Take 1 tablet (100 mg 28 tablet 0 02/2603/12/2022 (DORYX) 100 mg EC tablet total) by mouth 2 (two) times a day for 14 days. sennosides-docusate Take 1 tablet by 12 tablet 1 01/01/2022 01/31/2022 sodium (SENOKOT-S) mouth 2 (two) times a 8.6-50 mg per tablet day as needed for constipation (if taking prescription pain medication and no bowel movement in the past 36 hrs.). ARTHRITIS PAIN RELIEF, TAKE TWO TABLETS 6 019 01/01/2022 ACETAM, 650 mg ER tablet (1300MG) BY MOUTH EVERY EIGHT HOURS aspirin 325 mg tablet Take 1 tablet [...] 01/19/202111/2021 mcg/actuation inhaler (two) times a day. HYDROcodone-acetaminophe Take 1 tablet by 0 03/0512/30/2021 n (NORCO) 5-325 mg per mouth as needed. tablet nicotine (NICOTROL NS) 1-2 sprays every 1-2 3 Bottle 3 07/202101/01/2022 10 mg/mL nasal spray hrs. as needed for cravings nicotine (NICOTROL) 10 Inhale 1 puff as 0 01/01/2022 mg inhaler needed for smoking cessation. Puff on dispenser for several minutes each hour as needed for nicotine withdrawal symptoms. Change cartridge after two to four hours. oxyCODONE (ROXICODONE) Take 10 mg by mouth every 4 (four) hours as needed for pain. Max 4 tablets/day 0 08/23/2020 01/01/20 22 10 mg IR tablet Takes daily oxyCODONE (ROXICODONE) 5 Take 1 tablet (5 [...] Diagnosis DX SHOULDER LEFT RAD - Routine 12/29/2021 10:30 Preoperative E xam Results for this 2+ VIEWS (most inpatients AM SINGLE ENDING MACHINE OPERATOR Painful Total Joint proc edure are in and all Arthroplasty the results outpatients) Initial (HCC) section. documented in this encounter Results DX Shoulder Left 2+ Views (12/29/2021 10:30 AM SINGLE ENDING MACHINE OPERATOR) Anatomical Region Laterality Modality Upper Extremity, Shoulder, Musculoskeletal RST LOS, Left Digital Radiography Musculoskeletal ARZ LOS, Muskuloskeletal FLA LOS Specimen (Source) Anatomical Collection Method Collection Time Re ceived Time Location / / Volume Laterality 12/29/2021 10:53 AM SINGLE ENDING MACHINE OPERATOR Impressions 12/29/2021 10:57 AM SINGLE ENDING MACHINE OPERATOR Demineralization. Left shoulder arthroplasty revision to a reverse TSA. Developing lucency about the glenoi d component screws when compared back to 11/13/20, compatible with loosening. Pre sumed distal clavicle resection. Incompletely imaged instrumented spinal fusion from the upper cervical spine to the upper thoracic spine. Spinal cord st imulator. At least one old healed left posterior rib fracture. Narrative 12/29/2021 10:57 AM SINGLE ENDING MACHINE OPERATOR EXAM: ??DX SHOULDER LEFT 2+ VIEWS Procedure Note Timothy Resendiz M.D. - 12/29/2021Forma tting of this note might be different from the original. EXAM: DX SHOULDER LEFT 2+ VIEWS IMPRESSION: Demineralization. Left shoulder arthropl asty revision to a reverse TSA. Developing lucency about the glenoi d component screws when compared back to 11/13/20, compatible with loosening. Pre sumed distal clavicle resection. Incompletely imaged instrumented spinal fusion from the upper cervical spine to the upper thoracic spine. Spinal cord st imulator. At least one old healed left posterior rib fracture. Alfredo Kamara IMG DIAGNOSTIC IMAGING PROCE ZULEYKA documented in this encounter Visit Diagnoses Diagnosis Preoperative Exam Painful Total Joint Arthroplasty Initial (HCC) documented in this encounter Additional Health Concerns Infection Onset Date Last Indicated Resolved Time COVID19 Pending 12/29/2021 12/29/2021 12/29/2021 4:20 PM SINGLE ENDING MACHINE OPERATOR Assessment Noted Time PHQ-9 Depression Total Score: 16 02/11/2021 12:00 AM C DT documented as of this encounter Care Teams Tank Storage Supervisor Relationship Specialty Start Date End Date Elsewhere, Pcp PCP - General Internal Medicine 12/25/21 documented as of this encounter
--- OUTSIDE RECORDS SUMMARY | 2022-07-06 14:50 | XMS_ITS | Encounter Summary ---
:1965 Author Organization [facility] Address [address] [place] [address] Care Team Providers Name Role Phone Elsewhere, Pcp Primary Care Provider Unavailable Encounter Details Date Type Department Care Team Description 12/29/2021 Hospital Encounter Department of Alfredo Herrera ative Exam; Laboratory Medicine A, O.P.A.-C. Painful Total Joint Arthroplasty Initial (HCC) and Pathology, [address] [place] [address], in [place] [phone] [place] [phone] [place] [address] (Work) [place], [place] [phone] [address] (Fax) [phone] Social History Tobacco Use Types Packs/Day Years [...] or relatives? How often do you attend adventism or Patient refused 2021 zoroastrian services? Do you belong to any clubs or No 05/17/2022 organizations such as adventism groups, unions, fraternal or athletic groups, or [...] THC multivit-min/iron/folic/ Take 1 tablet by 0 [id number] (HAIR, SKIN AND mouth daily. NAILS ADVANCED [...] 50 mL (2 g 2049 mL 0 02/02/202202/11/2022 iso-osm, (ROCEPHIN) 2 total) into a venous gram/50 mL IVBP catheter daily. doxycycline hyclate Take 1 tablet (100 mg 28 tablet 0 02/262 03/12/2022 (DORYX) 100 mg EC tablet total) by [...] Name Priority Date/Time Associated Diagnosis Comme nts ANTIBODY SCREEN, Routine 12/29/2021 11:34 Results for this RBC AM INSPECTOR BULLET SLUGS procedure are i n the results section. CBC WITH Routine 12/29/2021 11:34 Preoperative Ex am Results for this DIFFERENTIAL, B AM INSPECTOR BULLET SLUGS Painful Total Joint proce dure are in Arthroplasty Initial the res ults (HCC) section. TYPE AND SCREEN Routine 12/29/2021 11:34 Preoperative Ex am Results for this AM INSPECTOR BULLET SLUGS Painful Total Joint procedur e are in Arthroplasty Initial the res ults (HCC) section. BASIC METABOLIC Routine 12/29/2021 11:34 Preoperative Ex am Results for this PANEL, S/P AM INSPECTOR BULLET SLUGS Painful Total Joint procedur e are in Arthroplasty Initial the res ults (HCC) section. documented in this encounter Results Antibody Screen, RBC (12/29/2021 11:34 AM INSPECTOR BULLET SLUGS) P athologist Signature Antibody Negative Negative 12/29/2021 DTL Screen 12:59 PM INSPECTOR BULLET SLUGS Specimen Anatomical Collection Method Collection Time Receive d Time (Source) Location / / Volume Laterality Blood 12/29/2021 11:34 12/29/2021 AM INSPECTOR BULLET SLUGS 11:58 AM INSPECTOR BULLET SLUGS Alfredo Kamara LAB BLOOD BANK TEST ORDERABL ES Performing Organization Address City/State/ZIP Code Phon e Number [facility] - [address] [place], [place] [address] [facility] [place] [address] Laboratories-[facility] [address] (ABNORMAL) Basic Metabolic Panel (12/29/2021 11:34 AM INSPECTOR BULLET SLUGS) P athologist Signature Potassium, S 4.7 3.6 - 5.2 12/29/2021 DTL mmol/L 12:38 PM INSPECTOR BULLET SLUGS Sodium, S 143 135 - 145 12/29/2021 DTL mmol/L 12:38 PM INSPECTOR BULLET SLUGS Chloride, S 108 (H) 98 - 107 12/29/2021 DTL mmol/L 12:38 PM INSPECTOR BULLET SLUGS Bicarbonate, S 24 22 - 29 12/29/2021 DTL mmol/L 12:38 PM INSPECTOR BULLET SLUGS Anion Gap 11 7 - 15 12/29/2021 DTL 12:38 PM INSPECTOR BULLET SLUGS BUN (Blood 15 6 - 21 12/29/2021 DTL Urea mg/dL 12:38 PM INSPECTOR BULLET SLUGS Nitrogen), S Creatinine, S 0.83 0.59 - 12/29/2021 DTL 1.04 mg/dL 12:38 PM INSPECTOR BULLET SLUGS eGFR-Non 78 >=60 12/29/2021 DTL Black/ mL/min/BSA 12:38 PM INSPECTOR BULLET SLUGS Cameroonian Comment: ----ADDITIONAL INFORMATION---- Estimated GFR calculated using the 2009 CKD_EPI creatinine equation. eGFR-Black/ 90 >=60 mL/min/BSA 2021 12:38 PM INSPECTOR BULLET SLUGS DTL Comment: ----ADDITIONAL INFORMATION---- Estimated GFR calculated using the 2009 CKD_EPI creatinine equation. Calcium, Total, S 9.1 8.6 - 10.0 mg/dL 12/29/2021 12:3 8 PM INSPECTOR BULLET SLUGS DTL Glucose, S 90 70 - 140 mg/dL 12/29/2021 12:38 PM INSPECTOR BULLET SLUGS DTL Specimen Anatomical Collection Method Collection Time Receive d Time (Source) Location / / Volume Laterality Blood (Blood, 12/29/2021 11:34 12/29/2021 Venous) AM INSPECTOR BULLET SLUGS 12:13 PM INSPECTOR BULLET SLUGS Alfredo A Herrera O.P.A.-C. LAB BLOOD ADD-ON Performing Organization Address City/[facility] Phon e Number [facility] - [address] [place] [phone] [facility] [place] [address] Laboratories-[facility] 200 [facility] Type and Screen (with reflex Antibody ID) (12/29/2021 11:34 AM INSPECTOR BULLET SLUGS) [facility] Method Time Signature ABORh A Neg Not applicable 12/29/2021 ETRM 12:59 PM INSPECTOR BULLET SLUGS Antibody CANCELED 12/29/2021 ETRM Screen 12:59 PM INSPECTOR BULLET SLUGS Comment: Result canceled by the ancillar y. Type & Screen Expiration 02/26/2022 23:59 12/29/19 22 12:59 PM INSPECTOR BULLET SLUGS ETRM Testing Location Ara DEFAULT 12/29/2021 11:58 AM INSPECTOR BULLET SLUGS ETRM Specimen Anatomical Collection Method Collection Time Receive d Time (Source) Location / / Volume Laterality Blood (Blood, 12/29/2021 11:34 12/29/2021 Venous) AM INSPECTOR BULLET SLUGS 11:58 AM INSPECTOR BULLET SLUGS Alfredo Kamara LAB BLOOD BANK TEST ORDERABL ES Performing Organization Address [facility] Phon e Number [facility] - [address] [place] [address] [address] [facility] [place] [address] Laboratories-[address] (ABNORMAL) CBC with Differential, Blood (12/29/2021 11:34 AM INSPECTOR BULLET SLUGS) [facility] Method Time Signature Hemoglobin 11.2 (L) 11.6 - 12/29/2021 DTL 15.0 g/dL 12:02 PM INSPECTOR BULLET SLUGS Hematocrit 34.1 (L) 35.5 - 12/29/2021 DTL 44.9 % 12:02 PM INSPECTOR BULLET SLUGS Erythrocytes 4.04 3.92 - 12/29/2021 DTL 5.13 12:02 PM INSPECTOR BULLET SLUGS x10(12)/L MCV 84.4 78.2 - 12/29/2021 DTL 97.9 fL 12:02 PM INSPECTOR BULLET SLUGS RBC Distrib Width 20.2 (H) 12.2 - 12/29/2021 DTL 16.1 % 12:02 PM INSPECTOR BULLET SLUGS Platelet Count 324 157 - 371 12/29/2021 DTL x10(9)/L 12:02 PM INSPECTOR BULLET SLUGS Leukocytes 5.1 3.4 - 9.6 12/29/2021 DTL x10(9)/L 12:02 PM INSPECTOR BULLET SLUGS Neutrophils 3.08 1.56 - 12/29/2021 DTL 6.45 12:02 PM INSPECTOR BULLET SLUGS x10(9)/L Lymphocytes 1.39 0.95 - 12/29/2021 DTL 3.07 12:02 PM INSPECTOR BULLET SLUGS x10(9)/L Monocytes 0.43 0.26 - 12/29/2021 DTL 0.81 12:02 PM INSPECTOR BULLET SLUGS x10(9)/L Eosinophils 0.17 0.03 - 12/29/2021 DTL 0.48 12:02 PM INSPECTOR BULLET SLUGS x10(9)/L Basophils 0.05 0.01 - 12/29/2021 DTL 0.08 12:02 PM INSPECTOR BULLET SLUGS x10(9)/L Specimen Anatomical Collection Method Collection Time Receive d Time (Source) Location / / Volume Laterality Blood (Blood, 12/29/2021 11:34 12/29/2021 Venous) AM INSPECTOR BULLET SLUGS 11:54 AM INSPECTOR BULLET SLUGS Alfredo Kamara LAB BLOOD ADD-ON Performing Organization Address City/State/ZIP Code Phon e Number [facility] - [address] [place], [place] [address] [facility] [place] [address] Laboratories-[facility] [address] documented in this encounter Visit Diagnoses Diagnosis Preoperative Exam Painful Total Joint Arthroplasty Initial (HCC) documented in this encounter Additional Health Concerns Assessment Noted Time PHQ-9 Depression Total Score: 16 02/11/2021 12:00 AM C DT documented as of this encounter Care Teams Playground Equipment Erector Relationship Specialty Start Date End Date Elsewhere, Pcp PCP - General Internal Medicine 12/25/21 documented as of this encounter
--- OUTSIDE RECORDS SUMMARY | 2022-07-06 14:50 | XMS_ITS | Encounter Summary ---
:1965 Author Organization [facility] Address [address] [place] [id number] Care Team Providers Name Role Phone Elsewhere, Pcp Primary Care Provider Unavailable Reason for Visit Outpatient (Routine) - Closed Specialty Diagnoses / Procedures Referred By Contact Refer red To Contact Anesthesiology Diagnoses Preoperative Exam Painful Total Joint Arthroplasty Initial (HCC) Alfredo Herrera [facility] [address] [place] [phone] Referral ID Status Reason Start Date Expiration Date Visits Requ ested Visits Authorized [id number] Closed 10/13/2021 10/13/2022 1 1 Encounter Details Date Type Department Care Team Description 12/29/2021 Comprehensive Visit Preoperative Cayetano Herrera, [facility] [address] [place] [phone] Preanesthetic Medical Exam (Primary Dx); Evaluation Center Etta Lyle M.D. 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 How often do you attend confucianist or Patient refused 2021 voodoo services? Do you belong to any clubs or No 05/17/2022 organizations such as confucianist groups, unions, fraternal or athletic groups, or [...] Sign Reading Time Taken Comments Blood Pressure 125/78 12/29/2021 1:21 PM BRINE WELL OPERATOR Pulse 64 12/29/2021 1:21 PM BRINE WELL OPERATOR Temperature 36.1 ??C (97 ??F) 12/29/2021 1:01 PM BRINE WELL OPERATOR Respiratory Rate - - Oxygen Saturation 97% 12/29/2021 1:21 PM BRINE WELL OPERATOR Inhaled Oxygen Concentration - - Weight 72.6 kg (160 lb 0.9 oz) 12/29/2021 1:01 PM BRINE WELL OPERATOR Height 152 cm (4' 11.84) 12/29/2021 1:01 PM BRINE WELL OPERATOR Body Mass Index 31.42 12/29/2021 1:01 PM BRINE WELL OPERATOR documented in this encounter H&P Notes Etta Lyle M.D. - 12/29/2021 1:15 PM CST REASON FOR VISIT: Preoperative Medical Evaluation REFERRING PHYSICIAN: Anh Schwab 12/30/2021: ARTHROPLASTY RESECTION SHOULDER; Cyrus Polk M.D. 02/26/2022: ARTHROPLASTY REPLACEMENT TOTAL SHOULDER; Cyrus Polk M.D. Surgery Specific Risk Classification: Low Risk / Elevated Risk: Intermediate Risk SUBJECTIVE HISTORY OF PRESENT ILLNESS Angie Mosquera is a 56 y.o. female who is here for preanesthetic medical examination prior to theplanned procedure as listed above. Ms. 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 Polk on 12/30/2021. 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 She underwent left total shoulder arthroplasty and has had persistent left shoulder pain. She did have cultures drawn which were suggestive of an infected shoulder arthroplasty. She has been evaluated by our goal who are recommending resection of her shoulder arthroplasty. She will need a repeat totalshoulder arthroplasty, planned for later date (currently 02/2022). Of note, she had a recent hospitalization and was discharged 02/17/2021 following successful embolization of her right vertebral artery dissection. She was previously on anti-coagulation including bothapixaban and warfarin however anticoagulants have been discontinued and she is on aspirin monotherapy. Per neurosurgery, her aspirin 325 mg should be continued for 1 year post embolization with transition to aspirin 81 mg thereafter. The following portions of the patient's history were reviewed and updated as appropriate: allergies,current medications, medical history, social history, surgical history and problem list. REVIEW OF SYSTEMS Constitutional: Positive for fatigue. Eyes: Dry eyes Musculoskeletal: Positive for arthralgias, back pain and pain or stiffness in the joints. Neurological: Positive for loss of balance or tendency to fall easily and weakness in arms or legs. The following systems were negative: Skin, ENT, CV, Respiratory, GI, , Hematologic, Psych Cardiac Risk Scoring: Ying risk score: 0.53% RCRI score: 1; 6% risk of , PA, or cardiac arrest OBJECTIVE OBJECTIVE PHYSICAL EXAMINATION General/Constitutional Constitutional Assessment: Obese General State of Health: Healthy appearing Airway (HEENT) Mallampati: II TM Distance: >3 FB Neck ROM: Limited Mouth Opening: > 3 cm Upper Lip Bite Test: I Dental Assessment: Lower dentures and upper dentures Cardiovascular Rhythm: Regular Rate: Normal Cardiovascular Assessment: Normal Pulmonary Pulmonary Assessment: Clear and non labored Neurological Neurologic Assessment: Alert and oriented X 3 Musculoskeletal MSK Assessment: Normal Gait: Normal Ambulate with: None Psychiatric Psychiatric Assessment: Calm Dermatology Skin Assessment: normal DEVON (02/11/21) Final Impressions 1. Normal left ventricular chamber size; estimated ejection fraction 65%. 2. Normal right ventricular chamber size and systolic function. 3. Normal left atrial appendage without thrombus. Normal emptying velocity 80 cm/sec. 4. Mildly sclerotic aortic valve with aortic valve strands on ventricular surface (clip 30); appear unchanged compared to prior DEVON. Otherwise, normal valves for age. 5. 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 6. Patent foramen ovale with small right to left shunt at rest that augments with Valsalva release. Hyperdynamic atrial septum. 7. No intracardiac mass or thrombus identified. ASSESSMENT / PLAN Ms. 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 Polk on 12/30/2021. 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 She has a complicated neurologic history with recurrent posterior circulation strokes in the settingof a right vertebral artery dissection that was not healing despite aggressive medical management. She was previously on additional blood thinners including warfarin and apixaban however these have been discontinued. She has been stabilized and improving following embolization of her vertebral artery dissection 01/2021. She does not have cardiopulmonary limitation to exercise and can achieve > 4 METS, but is limited by back pain. Anesthesia: Patient reports previous anesthesia related complications: PONV. Her allergy list includes fentanyl and morphine; she has tolerated IV fentanyl during her anesthetics without complication. 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 - s/p embolization of right vertebral artery dissection with no new strokes following stabilization of her dissection - no current significant neurologic deficits following posterior circulation strokes; reports some balance issues when ambulating - aspirin 325 mg held since 12/21/2021; resume aspirin 325 mg postoperatively # Chronic Pain Syndrome # Fibromyalgia # Bipolar II Disorder ([facility]) # Anxiety Generalized Disorder - s/p spinal cord stimulator placement ([employer], MRI compatible to 1.5 Lucy) - patient takes oxycodone 10 mg q.6 hours p.r.n. (4-5 tablets daily) - continue oxycodone 10 mg q.6 hours p.r.n., pregabalin 300 mg/600 mg (morning/night), diazepam 10 mg b.i.d., tizanidine 4 mg p.r.n. as baseline pain regimen - continue zonisamide 100 mg, quetiapine 50 mg q.h.s, fluoxetine 40 mg and lamotrigine 200 mg as mood stabilization regimen # Nicotine Dependence Cigarettes # 60 pack year smoking history - currently smoking, although significantly reduced with 4-5 cigarettes daily - continue p.r.n. albuterol and DuoNeb # Gastric Bypass Status Post # GERD - avoid NSAIDs given gastric bypass surgery - continue esomeprazole 40 mg # Hyperlipidemia - continue atorvastatin 80 mg # lower extremity edema # history of bilateral total knee arthroplasties # Fusion Cervical Spine Status Post - patient has limited neck ROM given prior cervical fusion - hold furosemide 40 mg b.i.d. on day of procedure Reviewed with patient the Checklist for Surgical Patients [id number]. Written and verbal instructions given on medication management before surgery. RECOMMENDATIONS: Patient medically optimized for planned procedure: Yes Further Recommendations: 1. The following labs will be collected prior to surgery ?? Type and screen ?? CBC ?? BMP 2. Diligent blood pressure control given known intracranial aneurysm (5 mm left paraclinoid ICA aneurysm) 3. Bipolar cautery with grounding pad placed away from impulse generator to minimize risk of device malfunction; consider device interrogation following surgery to ensure proper function 4. Consider regional anesthesia adjunct with indwelling catheter for postoperative pain control given chronic pain history 5. Monitor for respiratory depression and consider continuous pulse oximetry in postoperative periodgiven numerous centrally acting agents Etta Lyle M.D. PGY-3, Anesthesiology and Perioperative Medicine [facility] E WELL OPERATOR documented in this encounter Plan of Treatment Not on filedocumented as of this encounter Visit Diagnoses Diagnosis Preanesthetic Medical Exam - Primary Preoperative Exam Painful Total Joint Arthroplasty Initial (HCC) Cerebral Infarction Due To Embolism Righ t Vertebral Artery (HCC) Aneurysm Cerebral Unruptured (HCC) Dissection Vertebral Artery (HCC) Ataxia From Stroke Cerebrovascular Accid ent Chronic Pain Syndrome Fibromyalgia Bipolar II Disorder (HCC) Anxiety Generalized Disorder Nicotine Dependence Cigarettes Fusion Cervical Spine Status Post Gastric Bypass Status Post Rhinosinusitis Chronic documented in this encounter Additional Health Concerns Infection Onset Date Last Indicated Resolved Time COVID19 Pending 12/29/2021 12/29/2021 12/29/2021 4:20 PM BRINE WELL OPERATOR Assessment Noted Time PHQ-9 Depression Total Score: 16 02/11/2021 12:00 AM C DT documented as of this encounter Care Teams Rn Office Relationship Specialty Start Date End Date Elsewhere, Pcp PCP - General Internal Medicine 12/25/21 documented as of this encounter
--- OUTSIDE RECORDS SUMMARY | 2022-07-06 14:50 | XMS_ITS | Encounter Summary ---
:1965 Author Organization [facility] Address [address] [place] [address] Care Team Providers Name Role Phone Elsewhere, Pcp Primary Care Provider Unavailable Encounter Details Date Type Department Care Team Description 12/30/2021 Anesthesia Event RST [facility] OR Clifford Young M.D. [address] [place] [address] [phone] [address] [facility] Collin Fernández M.D. [address] [place] [phone] [place] [phone] Anesthesia Record Procedure Summary Procedure Name Responsible Anesthesia Start Anesthesia Stop Anesthesiologist Time Time ARTHROPLASTY RESECTION Clifford Young M.D. 12/30/21 1250 1550 SHOULDER. (Left: Shoulder) Events Date Time Event Comment 12/30/2021 1243 Block Start Documented by nu rsing staff 1245 Block End Documented by nu rsing staff 1250 An Start Machine/Equipmen t Checked Infection Precautions Foll owed Procedure/Site Verified NPO Sta tus Verified Supine Standard ASA Mon itors Applied 1254 An Induction 1302 An Intubation 1329 1342 Turnover to Proceduralist 1345 Proc Start 1514 Proc Fin 1535 Turnover to ANE Staff 1535 Airway Removal Criteria Met 1535 Extubation/Airway Removed 1535 an stop data 1550 An End I completed my h andoff to the receiving staff during [facility] we 1. Identified the patient 2. Ident ified the responsible provider 3. Revi ewed the pertinent medical history 4. Discussed the surgical course 5. Review ed intra-op anesthesia management and i ssues during anesthesia 6. Set expectati ons for post-procedure period 7. Allowe d opportunity for questions and ac knowledgement of understanding. Name Total fentanyl injection 50 mcg/mL 50 mcg propofol 10 mg/mL 140 mg rocuronium 10 mg/mL injection 60 mg phenylephrine 100 mcg/mL injection 1,000 mcg ePHEDrine PF 5 mg/mL syringe injection 25 mg ondansetron 4 mg/2 mL injection 4 mg sugammadex 100 mg/mL injection 139.8 mg bupivacaine PF 0.5% injection 10 mL diphenhydrAMINE 50 mg/mL injection 12.5 mg tranexamic acid in NaCl IVPB 1,000 mg (CYKLOKAPRON) 1 g tranexamic acid in NaCl IVPB 1,000 mg (CYKLOKAPRON) 1 g albumin human bottle 5% 250 mL ceFAZolin injection 2,000 mg (ANCEF) 2 g propofol 10 mg/mL infusion 562.7 mg phenylephrine 20 mg/250 mL infusion 2.32 mg dexamethasone 4 mg/mL injection 8 mg ketamine 10 mg/mL injection 20 mg Lactated Ringers Free Drip 600 mL Agents No agents on file. Blood No blood administrations on file. Lines, Drains, and Airways Type Details Placement Removal Peripheral IV Placement Date: 12/30/21; 12/30/21 1143 by 01/01 1700 by Placement Time: 1143; An Hurtado San, Sinat A, R.N. Catheter Size: 20 G; R.N. Orientation: Lower, Right; Location: Forearm; Site Prep: Chlorhexidine (Preferred); Insertion Attempts: 1; Removal Date: 01/01/22; Removal Time: 1700; Removal Reason: Patient discharged Peripheral Nerve 12/30/21; 1256 (created 12/30/21 1256 by 0000 by Catheter via procedure Clifford Khanna M.D. Alexander, S herry documentation); Left; L, R.N. Interscalene; 01/04/22; (Rmoved this morning upon waking up for the day.) ETT Placement Date: 12/30/21; 12/30/21 1302 by 12/30 1535 by Placement Time: 1302 Emre Rodriguez, Ayakalashell Andreyscout howard T, (created via procedure PEN RIDER, AUDIT ASSOCIATE PEN RIDER, CRN A documentation); Mask Ventilation: Easy mask; Type: Standard ETT; Single Lumen Tube Size: 7 mm; Cuffed: Yes; Location: Oral; Grade View: Grade 1; Insertion Attempts: 1; Placement Verification: Bilateral breath sounds, Positive ETCO2, Symmetrical chest wall movement; Removal Date: 12/30/21; Removal Time: 1535 Wound 12/30/21; 1444; Shoulder; 12/30/21 1444 by 02/26 1235 by Anterior, Left; 02/26/22; Guillermina Grover, R.N. Sob Rishi martinez, 1235; old incision R.N. documented in this encounter Social History Tobacco [...] you attend druze or Patient refused 2021 gnosticism services? Do you belong to any clubs [...] or the highest technical, or vocational p [facility] degree you have received? Sex Assigned at Date Recorded Female 03/01/2019 10:12 AM CDT documented as of this encounter OR Notes Anesthesia Postprocedure Evaluation - Clifford Young M.D. - 12/30/2021 3:55 PM CST Patient: Angie Mosquera Procedure Summary Date: 12/30/21 Room / Location: [address] / [facility] in [place], [place] Anesthesia Start: 1250 Anesthesia Stop: 1550 Procedure: ARTHROPLASTY RESECTION SHOULDER. 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 Responsible Provider: Clifford Young M.D. Anesthesia Type: general with pain block ASA Status: 3 Anesthesia Type: general with pain block Last vitals Vitals Value Taken Time BP 110/77 12/30/21 1545 Temp 36.9 ??C 12/30/21 1545 Pulse 91 12/30/21 1555 Resp 14 12/30/21 1555 SpO2 97 % 12/30/21 1555 Vitals shown include unvalidated device data. Please reference Vitals flowsheet for most recent vital signs. Anesthesia Post Evaluation Patient Disposition: general care unit Cardiovascular status: hemodynamics (HR & BP) acceptable Respiratory status: patent airway with spontaneous effort Temperature: normothermic Oxygen requirements: room air Level of consciousness: awake Pain score: pain adequately controlled and/or at baseline Post Op nausea/vomiting: none Hydration status: euvolemic RVISOR STAGE CARPENTRY Anesthesia Procedure Notes - Emre Rodriguez APRN, CRNA - 12/30/2021 2:29 PM SUPERVISOR STAGE CARPENTRY Associated Order(s): Airway Airway Date/Time: 12/30/2021 1:02 PM Performed by: Emre Rodriguez APRN, CRNA Authorized by: Clifford Young M.D. Patient location during procedure: OR / Procedure Area PROCEDURE DETAILS: Mask difficulty assessment: easy mask Final airway type: video laryngoscope Laryngeal Manipulation: no Final best view of glottic structures - Cormack/Lehane Score: grade 1 ETT location: oral VL device: glide scope Adult tube size: 7 Adult ETT distance at teeth/gum: 21 Oral tube type: standard ETT Cuffed: yes Number of attempt to successful placement: 1 Airway confirmation: bilateral breath sounds, positive ETCO2 and bilateral chest rise Other previous techniques attempted: none PRE PROCEDURE DETAILS: Pre evaluation for airway management: procedure Urgency: elective Preop assessment of probable difficulty: no difficulty anticipated Preoxygenation: bag valve mask SEDATION / ANESTHESIA Anesthesia method: anesthesia POST PROCEDURE DETAILS: Procedure outcome: successful Airway event: no complications ATTESTATION STATEMENT RVISOR STAGE CARPENTRY Anesthesia Preprocedure Evaluation - Clifford Young M.D. - 12/30/2021 1:23 PM CST Preprocedure Anesthesia & H&P Assessment Procedure Summary Anesthesia Start Date/Time: 12/30/21 1250 Procedure: ARTHROPLASTY RESECTION SHOULDER. 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 Location: [address] / [facility] in [place], [place] Providers: Cyrus Polk M.D. Pertinent components [...] Esophageal Motility Disorder (+) Fibromyalgia Other (+) Bipolar II Disorder (HCC) (+) Nicotine Dependence Cigarettes (+) Nicotine Dependence Unspecified (+) Opioid Moderate Or Severe Use Disorder (Dependence) Uncomplicated (HCC) (+) Stroke Cerebrovascular Accident Personal History OBJECTIVE PHYSICAL EXAMINATION Airway (HEENT) Mallampati: II TM Distance: >3 FB Neck ROM: Full Mouth Opening: >3 cm Upper Lip Bite Test Class: I Cardiovascular Rhythm: Regular Rate: Normal Cardiovascular Assessment: cardiovascular normal Functional Capacity: >4 METS Pulmonary Pulmonary Assessment: Clear General / Constitutional Constitutional Assessment: Normal General State of Health:: healthy appearing and calm Neurological Neurologic Assessment:??alert and alert and oriented x 3 Dental Dental Assessment: dentition intact ASSESSMENT / PLAN ANESTHESIA PLAN ASA: 3 Anesthesia Plan: general with pain block Extensive conversation discussed about placing a nerve catheter and risks of neurologic injury. Patient wants the nerve catheter and is will to accept the risk of potential injury. Furthermore the patient has extensive piercing on her face that she wants to keep in for the surgery. Discussed risks of keeping in the piercings and she is willing to accept those risks also. Patient has a PFO, will place IV with a filter. Multimodal analgesia. Glidescope Patient seen and allergies reviewed, anesthesia plan and risks discussed directly with patient /legal guardian or through an dimmer board operator. Risks/Benefits/Alternatives of Blood transfusion discussed with patient / legal guardian, including an opportunity to ask questions and/or decline some or all transfusion therapies. The patient / legalguardian consented to the use of all blood products, as deemed medically necessary Approval to Proceed: approved for anesthesia RVISOR STAGE CARPENTRY Anesthesia Procedure Notes - Clifford Khanna M.D. - 12/30/2021 12:56 PM SUPERVISOR STAGE CARPENTRY Associated Order(s): Regional Block Regional Block Date/Time: 12/30/2021 12:56 PM Performed by: Clifford Khanna M.D. Authorized by: Clifford Khanna M.D. Care team members present 1. Clifford Khanna M.D. Location: Pre Op / PACU PROCEDURE [...] sterile conditions.Image(s) acquired and saved Injection technique: catheter Needle type: insulated Gauge: 18G Length: 5 Catheter taped (cm at skin): 8 Test dose: yes- negative test dose Incremental [...] successful procedure Other complications: none ATTESTATION STATEMENT RVISOR STAGE CARPENTRY documented in this encounter Plan of Treatment Not on filedocumented as of this encounter Procedures Procedure Name Priority Date/Time Associated Comments Diagnosis LDA ANE ENDOTRACHEAL Routine 12/30/2021 1:02 PM R esults for this AIRWAY SUPERVISOR STAGE CARPENTRY procedure are i n the results section. MC ANE NERVE BLOCK Routine 12/30/2021 12:56 Resul ts for this WITH ULTRASOUND PM SUPERVISOR STAGE CARPENTRY procedure ar e in the results section. LDA ANE UPPER Routine 12/30/2021 12:56 Results fo r this EXTREMITY PNC PM SUPERVISOR STAGE CARPENTRY procedure are in the results section. AR US GUIDE PLC NDL Routine 12/30/2021 12:56 Resu lts for this PM SUPERVISOR STAGE CARPENTRY procedure are i n the results section. AR INJ ANES BRACHIAL Routine 12/30/2021 12:56 Res ults for this PLEXUS CONT PM SUPERVISOR STAGE CARPENTRY procedure are i n the results section. documented in this encounter Results LDA ANE ENDOTRACHEAL AIRWAY (12/30/2021 1:02 PM SUPERVISOR STAGE CARPENTRY) Narrative Emre Rodriguez APRN, CRNA - 12/30/2021 1:02 PM SUPERVISOR STAGE CARPENTRY Emre Rodriguez APRN, CRNA ? 12/30/2021 ??2:30 PM Airway Date/Time: 12/30/2021 1:02 PM Performed by: Emre Rodriguez APRN, CRNA Authorized by: Clifford Young M.D. Patient location during procedure: OR / Procedure Area PROCEDURE DETAILS: Mask difficulty assessment: easy mask Final airway type: video laryngoscope Laryngeal Manipulation: no ?? Final best view of glottic structures - Cormack/Lehane Score: grade 1 ETT location: oral VL device: glide scope Adult tube size: 7 Adult ETT distance at teeth/gum: 21 Oral tube type: standard ETT Cuffed: yes Number of attempt to successful placemen t: 1 Airway confirmation: bilateral breath so unds, positive ETCO2 and bilateral chest rise Other previous techniques attempted: non e PRE PROCEDURE DETAILS: Pre evaluation for airway management: pr ocedure Urgency: elective Preop assessment of probable difficulty: no difficulty anticipated Preoxygenation: bag valve mask SEDATION / ANESTHESIA Anesthesia method: anesthesia POST PROCEDURE DETAILS: ? Procedure outcome: successful ?? Airway event: no complications ATTESTATION STATEMENT Clifford Young M.D. ANESTHESIA ORDERABLES AR INJ ANES BRACHIAL PLEXUS CONT, AR US GUIDE PLC NDL, LDA ANE UPPER EXTREMITY PNC, MC ANE NERVE BLOCK WITH ULTRASOUND (12/30/2021 12:56 PM SUPERVISOR STAGE CARPENTRY) Narrative Clifford Khanna M.D. - 12/30/2021 12:56 P M SUPERVISOR STAGE CARPENTRY Clifford Khanna M.D. ? 12/30/2021 12:57 PM Regional Block Date/Time: 12/30/2021 12:56 PM Performed by: Clifford Khanna M.D. Authorized by: Clifford Khanna M.D. Care team members present 1. Clifford Khanna M.D. Location: Pre Op / PACU PROCEDURE [...] co nditions.Image(s) acquired and saved Injection technique: catheter Needle type: insulated Gauge: 18G Length: 5 Catheter taped (cm at skin): 8 Test dose: yes- negative test dose ?? [...] sful procedure Other complications: none ATTESTATION STATEMENT Clifford Khanna M.D. PROCEDURE/MINOR SURGICAL ORD ERABLES documented in this encounter Visit Diagnoses Not on filedocumented in this encounter Administered Medications Inactive Administered Medications - up to 3 most recent administrations Medication Order MAR Action Action Date Dose Rate Site albumin human 5 % injection Given 12/30/2021 1:52 PM SUPERVISOR STAGE CARPENTRY 250 mL intravenous, As needed, Starting on Tue12/30/21 at 1352, Anesthesia Intra-op bupivacaine PF 0.5 % (5 mg/mL) injection Given 12/30/2021 12:45 PM SUPERVISOR STAGE CARPENTRY 10 mL (MARCAINE) intrathecal, As needed, Starting on Tue12/30/21 at 1245, Anesthesia Intra-op ceFAZolin injection 2,000 mg (ANCEF) Given 12/30/2021 2:19 PM SUPERVISOR STAGE CARPENTRY 2 g 2,000 mg (rounded from 1,747.5 mg = 25 m g/kg ? 69.9 kg Dosing weight), intravenous, Once, On Tue12/30/21 at 1130, For 1 dose, Intra-Op, Preoperatively within 1 hour prior to surgical incision If needed, reconstitute vial per package insert instructions. See IVAG for administration guidelines. , Drug Monitoring Program: Pharmacist to adjust medication dosing based on indication and drug clearance factors., Indications: Prophylaxis, surgical dexAMETHasone injection (DECADRON) Given 12/30/2021 1:09 PM SUPERVISOR STAGE CARPENTRY 8 mg intravenous, As needed, Starting on Tue12/30/21 at 1309, Anesthesia Intra-op diphenhydrAMINE injection (BENADRYL) Given 12/30/2021 1:32 PM SUPERVISOR STAGE CARPENTRY 12.5 mg intravenous, As needed, Starting on Tue12/30/21 at 1332, Anesthesia Intra-op ePHEDrine (PF) injection Given 12/30/2021 1:58 PM SUPERVISOR STAGE CARPENTRY 10 mg intravenous, As needed, Starting on Tue12/30/21 at 1346, Anesthesia Intra-op Given 12/30/2021 1:46 PM SUPERVISOR STAGE CARPENTRY 5 mg Given 12/30/2021 1:24 PM SUPERVISOR STAGE CARPENTRY 10 mg fentaNYL injection (SUBLIMAZE) Given 12/30/2021 3:12 PM SUPERVISOR STAGE CARPENTRY 50 mcg intravenous, As needed, Starting on Tue12/30/21 at 1512, Anesthesia Intra-op ketamine injection (KETALAR) Given 12/30/2021 2:43 PM SUPERVISOR STAGE CARPENTRY 20 mg intravenous, As needed, Starting on Tue12/30/21 at 1443, Anesthesia Intra-op lactated ringers New Bag 12/30/2021 12:53 PM SUPERVISOR STAGE CARPENTRY intravenous, Continuous Infusion: Per Instructions PRN, Starting on Tue12/30/21 at 1253, Anesthesia Intra-op ondansetron (PF) injection (ZOFRAN) Given 12/30/2021 3:00 PM SUPERVISOR STAGE CARPENTRY 4 mg intravenous, As needed, Starting on Tue12/30/21 at 1500, Anesthesia Intra-op phenylephrine 80 mcg/mL in Rate/Dose 12/30/2021 3:00 0.4 mcg/kg/min 20.97 NaCl 0.9% 250 mL infusion Change PM SUPERVISOR STAGE CARPENTRY mL/hr intravenous, Continuous Infusion: Per Instructions PRN, Starting on Tue12/30/21 at 1404, Anesthesia Intra-op Rate/Dose Change 12/30/2021 2:36 PM SUPERVISOR STAGE CARPENTRY 0.3 mcg/kg/min 15.728 mL/hr Rate/Dose Change 12/30/2021 2:25 PM SUPERVISOR STAGE CARPENTRY 0.25 mcg/kg/min 13.106 mL/h r phenylephrine injection Given 12/30/2021 2:31 PM SUPERVISOR STAGE CARPENTRY 100 mcg intravenous, As needed, Starting on Tue12/30/21 at 1346, Anesthesia Intra-op Given 12/30/2021 2:12 PM SUPERVISOR STAGE CARPENTRY 100 mcg Given 12/30/2021 2:10 PM SUPERVISOR STAGE CARPENTRY 100 mcg propofol 10 mg/mL infusion New Bag 12/30/2021 1:15 50 mcg/kg/min 2 0.97 mL/hr (DIPRIVAN) PM SUPERVISOR STAGE CARPENTRY intravenous, Continuous Infusion: Per Instructions PRN, Starting on Tue12/30/21 at 1315, Anesthesia Intra-op New Bag 12/30/2021 1:09 PM SUPERVISOR STAGE CARPENTRY 50 mcg/kg/min 20.97 mL/hr propofoL injection (DIPRIVAN) Given 12/30/2021 12:59 PM SUPERVISOR STAGE CARPENTRY 140 mg intravenous, As needed, Starting on Tue12/30/21 at 1259, Anesthesia Intra-op rocuronium injection (ZEMURON) Given 12/30/2021 1:12 PM SUPERVISOR STAGE CARPENTRY 10 mg intravenous, As needed, Starting on Tue12/30/21 at 1301, Anesthesia Intra-op Given 12/30/2021 1:01 PM SUPERVISOR STAGE CARPENTRY 50 mg sugammadex injection (BRIDION) Given 12/30/2021 3:14 PM SUPERVISOR STAGE CARPENTRY 139.8 mg intravenous, As needed, Starting on Tue12/30/21 at 1514, Anesthesia Intra-op tranexamic acid in NaCl IVPB 1,000 mg Given 12/30/2021 2:[address] 1 g (CYKLOKAPRON) 1,000 mg (1 g), intravenous, at 300 mL/hr, Administer over 20 Minutes, Once, On Tue12/30/21 at 1130, For 1 dose, Intra-Op, Administer in OR upon induction tranexamic acid in NaCl IVPB 1,000 mg Given 12/30/2021 1:[address] 1 g (CYKLOKAPRON) 1,000 mg (1 g), intravenous, at 300 mL/hr, Administer over 20 Minutes, Once, On Tue12/30/21 at 1130, For 1 dose, Intra-Op, Administer in OR just before dropping tourniquet documented in this encounter Additional Health Concerns Assessment Noted Time PHQ-9 Depression Total Score: 16 02/11/2021 12:00 AM C DT documented as of this encounter Care Teams Ore Mixer Relationship Specialty Start Date End Date Elsewhere, Pcp PCP - General Internal Medicine 12/25/21 documented as of this encounter
--- OUTSIDE RECORDS SUMMARY | 2022-07-06 14:50 | XMS_ITS | Encounter Summary ---
:1965 Author Organization [facility] Address [address] [place] [address] Care Team Providers Name Role Phone Elsewhere, Pcp Primary Care Provider Unavailable Reason for Referral Outpatient (Routine) - Closed Specialty Diagnoses / Procedures Referred By Contact Refer red To Contact Orthopedic Surgery Diagnoses Pain Shoulder Left Alfredo Herrera, [facility] [address] [place] [phone] Referral ID Status Reason Start Date Expiration Date Visits Requ ested Visits Authorized [id number] Closed 12/30/2021 12/30/2022 1 1 GOODS MENDER Reason for Visit Reason Comments Pre-visit Testing Orders Encounter Details Date Type Department Care Team Description 12/29/2021 Clinical Communication Department of Jam Pre- visit Testing Orthopedic Surgery Cyrus Souza M.D. Orders in [address] [place] [phone] [place], [place] [phone] (Work) [phone] Social History Tobacco Use Types Packs/Day Years [...] you attend confucianist or Patient refused 2021 yazidism services? Do you belong to any clubs or No 05/17/2022 organizations such as confucianist groups, unions, fraAppside or athletic groups, or school groups? How [...] Notes Telephone Encounter - Deann Watkins - 12/29/2021 1:06 PM CST Please sign order GOODS MENDER documented in this encounter Plan of Treatment Scheduled Referrals Name Type Priority Associated Order Schedule Diagnoses Orthopedic Surgery Outpatient Referral Routine Pain Shoulder L eft Expected: Pre Op (clinic) 02/24/2022, Expires: 03/28/2023 documented as of this encounter Results SARS CoV-2 RNA, PCR, Varies Asymptomatic (02/25/2022 11:09 AM CDT) [facility] Method Time Signature SARS CoV-2 Swab, 02/25/2022 DTL RNA, PCR, Nasopharynx 3:58 PM CDT Source SARS CoV-2 Undetected Undetected 02/25/2022 DTL RNA, PCR 3:58 PM CDT Comment: SARS-CoV-2 RNA absent. This result does not rule out COVID-19 in the patient, as the sensitivity of the test depends o n the timing of the specimen collection and quality of the specimen. Result should be correlated with patient's history and clinical presentat ion. ----ADDITIONAL INFORMATION---- This RT-PCR test has received Emergency Use Authorization (EUA) by the U.S. Food and Drug Administration an d is used per manufacturing teacher's instructions. Performance characteristics were verified by [facility] in a manner consistent with CLIA requirements. Visit the CDC website: https://www.cdc.g ov/coronavirus/ for the most recent guidelines on Coron avirus testing. Fact Sheet for Healthcare Providers: https://www.fda.gov/media/375264/downloa d Fact Sheet for Patients: https://www.fda.gov/media/670151/downloa d Specimen Anatomical Collection Method Collection Time Receive d Time (Source) Location / / Volume Laterality Varies 02/25/2022 11:09 02/25/2022 (Nasopharynx) AM CDT 11:40 AM CDT Alfredo Kamara LAB MICROBIOLOGY - GENERAL O RDERABLES Performing Organization Address City/State/ZIP Code Phon e Number [facility] - [address] [place], [place] [address] [place] [address] [facility] [address] documented in this encounter Visit Diagnoses Diagnosis Pain Shoulder Left - Primary documented in this encounter Additional Health Concerns Infection Onset Date Last Indicated Resolved Time COVID19 Pending 12/29/2021 12/29/2021 12/29/2021 4:20 PM KNIT GOODS MENDER Assessment Noted Time PHQ-9 Depression Total Score: 16 02/11/2021 12:00 AM C DT documented as of this encounter Care Teams Ditch Repairer Relationship Specialty Start Date End Date Elsewhere, Pcp PCP - General Internal Medicine 12/25/21 documented as of this encounter
--- OUTSIDE RECORDS SUMMARY | 2022-07-06 14:50 | XMS_ITS | Encounter Summary ---
:1965 Author Organization [facility] Address [address] [place] [address] Care Team Providers Name Role Phone Elsewhere, Pcp Primary Care Provider Unavailable Encounter Details Date Type Department Care Team Description 12/30/2021 Surgery RST [facility]AN OR Cyrus Polk, ARTHROPLASTY RESECTION [address] [facility] [place] [address] 0001 [address] [facility] [phone] [place] [phone] Social History Tobacco Use Types Packs/Day Years [...] many times do you More than three trey es a week 05/17/2022 talk on the phone with family, friends, or neighbors? How often do you get together with friends More than three t imes a week 05/17/2022 or relatives? How often do you attend sabianist or Patient refused 2021 restorationism services? Do you belong to any clubs or No 05/17/2022 organizations such as sabianist groups, unions, fraternal or athletic groups, or [...] Sign Reading Time Taken Comments Blood Pressure 119/74 12/30/2021 12:47 PM INSIDE WIREMAN Pulse 79 12/30/2021 12:47 PM INSIDE WIREMAN Temperature 36.8 ??C (98.2 ??F) 12/30/2021 11:22 AM INSIDE WIREMAN Respiratory Rate 20 12/30/2021 12:47 PM INSIDE WIREMAN Oxygen Saturation 99% 12/30/2021 12:47 PM INSIDE WIREMAN Inhaled Oxygen Concentration - - Weight 69.9 kg (154 lb 1.6 12/30/2021 11:22 AM oz) INSIDE WIREMAN Height 150.5 cm (4' 11.25) 12/30/2021 11:22 AM no shoe s/boots INSIDE WIREMAN Body Mass Index 30.86 12/30/2021 11:22 AM INSIDE WIREMAN documented in this encounter Discharge Summaries Dario Carrera M.D. - 01/01/2022 8:50 AM CST DISCHARGE SUMMARY BRIEF OVERVIEW Hospital: [facility] Discharge Provider: Cyrus Polk M.D. Primary Team: T Orthopedic Surgery - Jam Primary Care Providers: Elsewhere, Pcp (General) No address on file Primary Care Provider Phone Number: None Primary Care Provider Fax Number: None Admission Date: 12/30/2021 Discharge Date: 01/01/2022 PRINCIPAL DIAGNOSIS Direct Infection Of Left Shoulder In Infectious And Parasitic Diseases Classified Elsewhere (HCC) SECONDARY DIAGNOSES Principal Problem: Direct Infection Of Left Shoulder In Infectious And Parasitic Diseases Classified Elsewhere (HCC) Resolved Problems: * No resolved hospital problems. * Surgery Information This Encounter Past Procedures (01/01/2021 to Today) Date Procedures Providers Location 12/30/2021 ARTHROPLASTY RESECTION SHOULDER. Cyrus Polk M.D.[place]un[place]to, Nicholas F, M.D. RST ROEI OR DISCHARGE DISPOSITION Home-Health Care [facility] [6] ACTIVE ISSUES REQUIRING FOLLOW UP Active shoulder infection OUTPATIENT FOLLOW UP Scheduled Appointments 02/25/2022 9:15 AM Cyrus Polk M.D. Orthopedic Surgery 02/25/2022 10:20 AM LAB MISC MED SCREEN [facility] 06 W Laboratory Medicine For appointment details refer to your Patient Appointment Guide. TEST RESULTS PENDING AT DISCHARGE Pending Labs Order Current Status Bacteria / Mandi Culture, Blood #1 In process Bacteria / Mandi Culture, Blood #2 In process Bacteria Cult, Aerobe / Anaerobe+Susc Preliminary result Bacteria Cult, Aerobe / Anaerobe+Susc Preliminary result Bacteria Cult, Aerobe / Anaerobe+Susc Preliminary result Bacteria Cult, Aerobe / Anaerobe+Susc Preliminary result Bacteria Cult, Aerobe / Anaerobe+Susc Preliminary result DETAILS OF HOSPITAL STAY REASON FOR ADMISSION Shoulder Joint Disorder Left Direct Infection Of Left Shoulder In Infectious And Parasitic Diseases Classified Elsewhere (HCC) HOSPITAL COURSE The patient was taken to the operating room by Dr. Polk and underwent Left shoulder resection arthroplasty. The patient tolerated the procedure well. Please see Dr. Polk's operative note for complete details. After a brief period of recovery in the post-anesthesia care unit, the patient was transferred to the regular hospital floor. Physical therapy was initiated on post-operative day 1. At the time of dismissal, the patient is ambulating with physical therapy, voiding spontaneously, tolerating an oral diet, and pain is controlled on oral medications. CONSULTS ORDERED DURING THIS ADMISSION IP CONSULT TO INFECTIOUS DISEASES IP CONSULT TO CARE MANAGEMENT IP CONSULT TO CARE MANAGEMENT IP CONSULT TO CARE MANAGEMENT CONDITION AT DISCHARGE improved Discharge instructions were provided to the patient and caregiver(s). DE WIREMAN documented in this encounter Discharge Instructions AttachmentsThe following attachments cannot be sent through Care Everywhere. Continuous Nerve-Block Infusion System: Often called a ???pain pump?? (Kazakh) documented in this encounter Medications at Time [...] THC multivit-min/iron/folic/ Take 1 tablet by 0 [id number] (HAIR, SKIN AND mouth daily. NAILS ADVANCED [...] in dextrose, Infuse 50 mL (2 g 2050 mL 0 02/202202/11/2022 iso-osm, (ROCEPHIN) 2 total) into a venous [...] bowel movement in the past 36 hrs.). aspirin 325 mg tablet Take 1 tablet [...] mouth daily. documented as of this encounter Progress Notes Ceci Ivan R.N. - 01/01/2022 5:28 PM CST Post Anesthesia Assessment Note Patient: Angie Mosquera General Info Post-procedure day: 2 Follow-up type: outpatient regional Regional Block Information Description/location: interscalene Laterality: left Rate (mL/hour): 6 (OnQ infusion) Overall Comments Several attempts made to call for follow up assessment and I was unable to leave a message as there was no voicemail box. A member of our team will attempt to follow up tomorrow by phone. Brendon Esquivel M.D. - 01/01/2022 5:28 PM CST Post Anesthesia Assessment Note Patient: Angie Mosquera General Info Post-procedure day: 3 Follow-up type: outpatient regional Time spent in patient care: 15 minutes with over half of the total time in counseling and/or coordination of patient care. Regional Block Information Description/location: interscalene Laterality: left Rate (mL/hour): 6 (bupi 0.1%) Overall Comments Attempted to reach patient via phone and left voicemail summarizing the plan and encouraging the patient to contact us or go to the ED should any concerning symptoms, such as swelling, redness, pain, discharge at catheter site, or signs of local anesthetic systemic toxicity, occur. DE WIREMAN Fatemeh Pena R.N. - 01/01/2022 5:28 PM CST Post Anesthesia Assessment Note Patient: Angie Mosquera General Info Post-procedure day: 4 Follow-up type: outpatient regional Regional Block Information Description/location: interscalene Laterality: left Rate (mL/hour): 6 (Bupivacaine 0.2% On-Q) Overall Comments Tried reaching the patient today. Unable to do this. Her nerve catheter should have been removed this morning when she got up for the day. DE WIREMAN Ruth Gonzalez, P.TBritton, D.P.T. - 01/01/2022 4:29 PM CST Physical Therapy Inpatient Treatment Note SUBJECTIVE Patient's Name: Angie Mosquera Referring/Attending: Cyrus Polk M.D. Medical Diagnosis: Shoulder Joint Disorder Left [M25.812] Direct Infection Of Left Shoulder In Infectious And Parasitic Diseases Classified Elsewhere (HCC) [M01.X12] Pain Shoulder Left [M25.512] Reason for Referral: PT Evaluate and Treat PT evaluate and treat; Hand on abdomen at all times besides for hygiene. No use of shoulder, elbow, wrist, hand. Teach donning and doffing of shirts and slings. Onset Date: 12/30/21 Payor: MEDICARE / Plan: MEDICARE A AND B / Product Type: Medicare / History of Present Illness: Patient is a 56-year-old female with left infected reverse shoulder arthroplasty and now status post resection left reverse shoulder arthroplasty and spacer placement on 12/30/2021. Patient has history of CVA. Family/Caregiver Present: No Patient/Caregiver Goals: Patient plans to go home today with friend driving her. Friend not here forteaching. Patient Comments: Patient lives in an apartment with a son next door on one side and a friend on theother side Precautions Weight Bearing Status: Left upper extremity nonweightbearing Other Precautions: Fall, impaired cognition, vertigo Fall Risk (65 and older) Fall in the last 12 months: Yes (She cannot give a number, sounds like many, states she gets off balance) Did you have an injury with the fall?: No (Patient states that she knows how to fall so that she does not hit her head) Are you fearful of falling?: No (I watch it and try not to do too much when I know that I am not feeling so good medically.) OBJECTIVE Angie's NOHARM modalities were not used during their therapy session. Treatment consisted of: Sit to Stand Transfers # of Assistants: 1 Transfer Surface: Bed Transfer Equipment: Gait belt Level of Assistance: Supervision/set-up Stand to Sit Transfers # of Assistants: 1 Transfer Surface: Bed Transfer Equipment: Gait belt PT ADL Training ADL Training: Caregiver not available. Taught patient seated edge of bed technique with the use of pillows to support the arm for shower sling and daily sling donning and doffing as well as for pullover shirts. Patient is sent video links for shower sling and shirts with seated techniques to patient'se-mail. Patient's nurse was contacted and patient's status was discussed Patient was left in bedside chair at end of session with call light in reach, all needs met and questions answered. Contact monitoring: PPE used during therapy: Therapist was wearing the following PPE throughout entire session: surgicalmask and eye protection Patient was wearing a mask during therapy session: no Outcome Measures AM-PAC Inpatient Short Form: AM-PAC Basic Mobility (V.2) [...] 3-5 steps with a railing?: A Little AM-[facility] Basic Mobility (V.2) Raw Score: 23 AM-PAC Basic Mobility (V.2) Standardized Score: 50.88 Interpretation: Clinicians answer the -[facility] Inpatient Short Form based on [...] had an average score of 11.5 Assessment Skilled therapy can include physical therapy provided by home health, outpatient clinic, or a post-acute facility. The location of these services is determined by the patient's care team in partnershipwith patient/family. Equipment Recommended - PT: 4-point cane Gave patient a prescription that she can fill at home for a quad cane since it is not available [facility] by prescription. Barriers to Discharge Home: Other (Comment) (Dependent on caregiver availability) From a physical therapy perspective, the level of care above has been recommended for Ms. Mosquera after hospital discharge. This level of care is based on her functional abilities during today's session. This may change throughout the hospital course and will be updated as appropriate. Clinical Impression of today's session: Maximized learning for patient alone, without caregiver, for shirt and sling management. Caregiver still not here at 1615. Patient also has video links sent via email. Prescription given for quad cane. Rehab potential: Ms. Mosquera has Good potential to achieve established physical therapy goals withinthe time frame outlined below. Progress: (PT completed without caregiver present.) Functional Goals and Timeframes: PT Inpatient Goals PT Goal #1: Patient will be able to transfer to and from all surfaces with contact guard assistance as per home set-up. PT Goal #1 Status: Achieved PT Goal #2: Patient and helper will be able to teach back with demonstration the seated edge of bed technique with the use of pillows to support the arm for shirt, shower sling and daily sling donning and doffing. GOAL NOT MET with helper, unavailable; taught patient and sent videos for shirt and shower sling thru email PT Goal #3: Patient will be able to ambulate 25 m with right handed quad cane with minimal assistance. PT Goal #3 Status: Achieved Plan Treatment Plan: Plan: Discontinue PT PT Frequency: PT Amount: 1 visit per day PT Frequency: 7 times per week PT Inpatient Duration : Until goals are met or hospital discharge Requires Inpatient Follow-Up: No Treatment interventions may include: Treatment/Interventions: Therapeutic exercise, Therapeutic functional activity, Gait training Billing: Time Spent with Patient Therapeutic Activity (min): 23 min Total Timed Units (min): 23 min Total Treatment Time (min): 23 min Ruth Gonzalez P.T., D.P.T. DE WIREMAN Elvira Duncan R.N. - 01/01/2022 3:21 PM CST Post Anesthesia Assessment Note Patient: Angie Mosquera General Info Post-procedure day: 2 Follow-up type: inpatient regional Regional Block Information Description/location: interscalene Laterality: left Local anesthetic: bupivacaine 0.2% Rate (mL/hour): 6 Multi-modal Analgesics: Acetaminophen: yes Opioids: yes Assessment: General assessment: uncomplicated postoperative course Side effects and complications: no complications Catheter assessment: clean, intact, non tender Signs/symptoms of local anesthetic toxicity: none Site Assessment: Sensory: decreased sensation to light touch Motor: decreased motor strength Pain Assessment: Current static pain scale: 9/10 (states this is her baseline pain.) Patient Care Plan:continue current management per plan/IPS protocol Overall Comments Peripheral nerve catheter was flushed and aspirated. Results were negative. On-Q infusion started??Monday 01/01 at 1530 . Education completed with patient. Provided educational pamphlet Continuous Nerve-Block Infusion System ( [id number]).?? Discussed at home removal of nervecatheter, signs of toxicity, and provided the 20/06 number to call with questions.?? All questions answered. On-Q infusion will end Wednesday 01/03 at 2230. Informed patient she may wait until Tuesday morning to remove if she is sleeping. Note OnQ will not be empty as running at 6ml/hr with fill of 550cc. She is aware of this. DE WIREMAN Thao You L.I.C.S.W., M.S.W. - 01/01/2022 11:23 AM CST SUBJECTIVE Referral Data The patient was seen for ongoing discharge needs. A list of infusion options (that patient/family geographically resides or requests) has been provided to and reviewed with patient/family. Disclaimers: Financial disclosure provided informing patient of our ownership and financial relationship of the [facility]/home health & hospice agencies. Reviewed insurance coverage, provided patient with in-network options if applicable. Patient/family have indicated a preference for the facility/agency below. patient declined additional resources. OBJECTIVE Anticipated modifications to the home environment: None Patient requires the following additional equipment upon dismissal: None ASSESSMENT / PLAN Assessment The patient/family appear to have insight into the patient's needs at this time and are planning appropriately for discharge needs. The patient/family report agreement with the below plan with no further questions at this time. Plan Discharge Location: Patient will discharge home with home infusions. Individuals have been identified who are willing and able to learn the infusion technique. Dialysis/Infusion - Admitted Since 12/30/2021 Service Provider Selected Services Address Phone Fax Patient Preferred [facility] [address] [facility] [place]NOTE 2[address] [address] -- Contact: Intake NURSING: - Adjust the dosing schedule to accommodate home infusion. - Fax any prescriptions 24 hours prior to discharge. - Complete documentation in the Discharge Navigator including Nursing Report Info and Facility/NextLevel of Care Info - Call report and arrange for patient???s first visit.-Education completed 01/01 - Be sure the patient receives a dose prior to dismissal on the day of discharge. - Send After Visit Summary, include IV access information and current labs and required packet of dismissal information with patient, including advance directive. PRIMARY SERVICE: - Prescription needs to be completed and faxed to the infusion provider at least 24 hours prior to dismissal. - Prescription needs to include: - Orders for IV meds with a stop date - Normal Saline/Heparin flushes and site care for IV access The following information will need to be included in the After Visit Summary: - Orders for IV meds with a stop date - Normal Saline/Heparin flushes and site care for IV access - Recommendations for any lab work while on IV therapy - Discontinue IV access at completion of therapy - Contact the patient's primary care provider for writing IV orders, monitoring of labs/levels and any other continuing care needs. A copy of the After Visit Summary needs to be sent there as well. Site care and blood draws will be managed by Outpatient Facility: [facility] Address: [address] [place] [address] Contact: Princess Jimenez will provide IV access care for this patient. NURSING: - Complete documentation in the Discharge Navigator including Nursing Report Info and Facility/NextLevel of Care Info - Call report and arrange for the patient???s first visit-Done 01/04 at 1:30 - Send After Visit Summary, include IV access information and current labs and required packet of dismissal information with patient, including advance directive. PRIMARY SERVICE: - Please provide an order for outpatient IV access site care. - Communicate with the patient???s local primary care provider by telephone for writing of outpatient IV orders. This needs to be done to help prevent discharge delays. A copy of the After Visit Summary needs to be sent there as well. SOCIAL WORK: -Will continue to follow the patient. Social Work will continue to follow. La Ervin.C.S.W., M.S.W. 01/01/2022 Gucci Pimentel M.D. - 01/01/2022 10:45 AM CST DEMOGRAPHIC INFORMATION Clinic Number:[id number] Patient Name: Angie Mosquera Service: Orthopedics Infectious Disease Consultation Service Note Type: Supervisory note Patient seen and examined, reviewed the electronic medical record, and discussed in patient's clinical course at ID morning rounds. I agree with the assessment and recommendations as outlined in the associated note by Jose Guadalupe Nixon M.D dated 01/01/22. 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 Preoperatively she had oxacillin susceptible Staph epidermidis. RECOMMENDATIONS I agree with the plan outlined in the associated clinical note on 01/01/22. 1. Continue cefazolin 2 g IV q.8 hours while here. 2. Await surgical cultures Treatment plan reviewed with Ms. Mosquera, who expressed understanding. All questions answered to patient's satisfaction. Please page [phone] for questions. 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 [id number] Pamela Leonard, Pharm.D., R.Ph. - 01/01/2022 10:14 AM CST Pharmacist Progress Note Reason for admission: left total shoulder resection with antibiotic spacer placement 12/30/21 PMH: PFO, s/p gastric bypass surgery, unruptured cerebral aneurysm, vertebral artery dissection, h/ostroke, fibromyalgia, chronic pain syndrome, anxiety, bipolar II OBJECTIVE Home medications: ?? Held: aspirin 325 daily, lasix, medical cannabis ?? Changed: none Patient own medications: none Prophylaxis: cefazolin q8h (treatment), senna-docusate Neuro: chronic oxycodone use 40mg/d; 2/3 received 1.2mg IV dilaudid and 70mg oxycodone ID: h/o MSSE joint infection; intra-op cultures NGTD, blood cultures 2/3 pending GI/: bowel regimen ordered, no BM documented yet ASSESSMENT / PLAN 1. Patient utilized 1.2mg IV dilaudid yesterday at 0.4mg since midnight. Transition from IV pain medications to oral therapy only for dismissal preparation. 2. Continue cefazolin while inpatient and transition to ceftriaxone on dismissal likely for 6 weeks,follow cultures from OR and blood cultures. Appreciate ID recommendations. 3. Low threshold to escalate bowel regimen given high opioid requirements above baseline use Changes to medications anticipated at discharge: ??? Antibiotics per ID - likely ceftriaxone x6 weeks ??? Post-operative pain medications as appropriate and bowel regimen while on post-operative opioids Pamela Crawford Pharm.D., R.Ph. [phone] DE WIREMAN Jose Guadalupe Nixon M.D. - 01/01/2022 8:31 AM CST Infectious Diseases Orthopedic Surgery [facility] Consulting Service Progress Note SUBJECTIVE -No acute events overnight -Afebrile -Ongoing pain control -Continues on IV cefazolin without difficulty OBJECTIVE General:?? Not in acute distress, resting comfortably in bed, alert and oriented to person, place and time. Eyes: Anicteric sclera. ENT: Mucous membranes moist, no evidence of exudate. Heart:?? Regular rate, and rhythm, no murmurs, gallops, or rubs appreciated, normal S1 and S2 heart sounds, no signs of peripheral edema, radial pulses equal bilaterally. Lungs:?? Clear to auscultation bilaterally, no rhonchi, rales, or wheezes, no increased work of breathing. Abdomen:?? Non-distended, nontender to deep and light palpation, normal bowel sounds, no organomegaly. Skin:?? Multiple tattoos. Nerve block in place. Dressing clean. Mental:?? Appropriate mood and affect. DIAGNOSTICS I have reviewed diagnostics. Studies of note include: No results found for this or any previous visit (from the past 24 hour(s)). Microbiology Results (last 10 days) Procedure Component Value - Date/Time Bacteria / Mandi Culture, Blood #2 [[id number]] Collected: 12/31/21 1604 Lab Status: In process Specimen: Blood, Peripheral Draw Updated: 12/31/21 165 Narrative: Received Bactec aerobic and Bactec anaerobic bottles Specimen Information: Specimen ID: [id number] Specimen Source: Blood, Peripheral Draw Specimen Comment: Specimen Source Site: Blood Specimen Collection Start Date: 12/31/2021 4:05 PM Specimen Received Date: 12/31/2021 4:51 PM Specimen ID: [id number] Specimen Source: Blood, Peripheral Draw Specimen Comment: Specimen Source Site: Blood Specimen Collection Start Date: 12/31/2021 4:05 PM Specimen Received Date: 12/31/2021 4:51 PM Specimen ID: [id number] Specimen Source: Blood, Peripheral Draw Specimen Comment: Specimen Source Site: Blood Specimen Collection Start Date: 12/31/2021 4:04 PM Specimen Received Date: 12/31/2021 4:51 PM Bacteria / Mandi Culture, Blood #1 [[id number]] Collected: 12/31/21 1552 Lab Status: In process Specimen: Blood, Peripheral Draw Updated: 12/31/21 1651 Narrative: Received Bactec aerobic and Bactec anaerobic bottles Specimen Information: Specimen ID: [id number] Specimen Source: Blood, Peripheral Draw Specimen Comment: Specimen Source Site: Blood Specimen Collection Start Date: 12/31/2021 3:52 PM Specimen Received Date: 12/31/2021 4:50 PM Specimen ID: [id number] Specimen Source: Blood, Peripheral Draw Specimen Comment: Specimen Source Site: Blood Specimen Collection Start Date: 12/31/2021 3:53 PM Specimen Received Date: 12/31/2021 4:50 PM Specimen ID: [id number] Specimen Source: Blood, Peripheral Draw Specimen Comment: Specimen Source Site: Blood Specimen Collection Start Date: 12/31/2021 3:53 PM Specimen Received Date: 12/31/2021 4:50 PM Bacteria Cult, Aerobe / Anaerobe+Susc [[id number]] Collected: 12/30/21 1411 Lab Status: Preliminary result Specimen: Shoulder, Left Updated: 12/31/21 1601 Bacteria Cult, Aerobe/Anaerobe+Susc No growth to date. Narrative: Bacterial Culture: Placed in Bactec aerobic and Bactec anaerobic bottles Bacteria Cult, Aerobe / Anaerobe+Susc [[id number]] Collected: 12/30/21 1405 Lab Status: Preliminary result Specimen: Synovial Fluid, Left Shoulder Updated: 12/31/21 1601 Bacteria Cult, Aerobe/Anaerobe+Susc No growth to date. Narrative: Bacterial Culture: Placed in Bactec aerobic and Bactec anaerobic bottles Bacteria Cult, Aerobe / Anaerobe+Susc [[id number]] Collected: 12/30/21 1404 Lab Status: Preliminary result Specimen: Shoulder, Left Updated: 12/31/21 1601 Bacteria Cult, Aerobe/Anaerobe+Susc No growth to date. Narrative: Bacterial Culture: Placed in Bactec aerobic and Bactec anaerobic bottles Bacteria Cult, Aerobe / Anaerobe+Susc [[id number]] Collected: 12/30/21 1403 Lab Status: Preliminary result Specimen: Shoulder, Left Updated: 12/31/21 1601 Bacteria Cult, Aerobe/Anaerobe+Susc No growth to date. Narrative: Bacterial Culture: Placed in Bactec aerobic and Bactec anaerobic bottles Bacteria Cult, Aerobe / Anaerobe+Susc [[id number]] Collected: 12/30/21 1403 Lab Status: Preliminary result Specimen: Shoulder, Left Updated: 12/31/21 1601 Bacteria Cult, Aerobe/Anaerobe+Susc No growth to date. Narrative: Bacterial Culture: Placed in Bactec aerobic and Bactec anaerobic bottles SARS Coronavirus 2, Molecular Detection, PCR, Varies Asymptomatic [[id number]] Collected: 12/29/21 1111 Lab Status: Final result Specimen: Varies from Nasopharynx Updated: 12/29/21 1620 COVID-19, PCR, Source Swab, Nasopharynx COVID-19, PCR, Result Undetected Comment: SARS-CoV-2 RNA absent. This result does not rule out COVID-19 in the patient, as the sensitivity of the test depends on the timing of the specimen collection and quality of the specimen. Result should be correlated with patient's history and clinical presentation. ----ADDITIONAL INFORMATION---- This RT-PCR test using the M[employer]o ([email or web address]) SARS-CoV-2 Assay ( [employer]) performed on the Moseo ([email or web address]) Two Module System has received Emergency Use Authorization (EUA) by the U.S. Food and Drug Administration, and is modified from the ribbon hand's instructions with a bridging study. Performance characteristics were verified by [facility] in a manner consistent with CLIA requirements. Visit the CDC website: https://www.cdc.gov/coronavirus/ for the most recent guidelines on Coronavirus testing. Fact Sheet for Healthcare Providers: https://www.fda.gov/media/162877/download Fact Sheet for Patients: https://www.fda.gov/media/034638/download ASSESSMENT / PLAN 56-year-old female with a past medical history [...] is consistent with aspiration results from original [facility] evaluation which is likely bilingual sales representative of the culprit organism causing her PJI. ?? For treatment as part of 2-stage exchange, we anticipate at least 6 weeks of targeted IV antimicrobial therapy pending intraoperative culture results.?? As we await further information, it is appropriate to continue the patient on IV cefazolin as currently prescribed despite her history of cephalosporin allergy as she appears to have tolerated the medication well while in the hospital. At the time ofdismissal, she can be transitioned to IV ceftriaxone [...] of Infectious Diseases OPAT monitoring program at [phone] after dismissal. Primary service to follow labs while patient is hospitalized. [facility] pharmacist to adjust dosing after dismissal 4. [...] or removed locally after completion of therapy. Treatment plan reviewed with Ms. Mosquera, who expressed understanding. All questions answered to patient's satisfaction.? This case was discussed with Dr. Salvador. We will sign off at this time. Please page Ortho C-ID service pager at [phone] with any questions. ?? Jose Guadalupe Nixon M.D. Elvira Scherer R.N. - 01/01/2022 8:16 AM CST Post Anesthesia Assessment Note Patient: Angie Mosquera General Info Post-procedure day: 2 Follow-up type: inpatient regional Regional Block Information Description/location: interscalene Laterality: left Local anesthetic: bupivacaine 0.2% Rate (mL/hour): 6 Multi-modal Analgesics: Acetaminophen: yes Opioids: yes Assessment: General assessment: uncomplicated postoperative course Side effects and complications: no complications Catheter assessment: clean, intact, non tender Signs/symptoms of local anesthetic toxicity: none Site Assessment: Sensory: decreased sensation to light touch Motor: decreased motor strength Pain Assessment: Current static pain scale: 0/10 (surgical site pain, rates axilla pain at 8-9) Patient Care Plan:continue current management per plan/IPS protocol Overall Comments Patient to dismiss with OnQ. Dario Murillo M.D. - 01/01/2022 7:00 AM CST SUBJECTIVE Patient is doing well this morning. Pain is well controlled. No acute events overnight. IFD has beenconsulted and provided recommendations. OBJECTIVE VITAL SIGNS Temperature: [36.8 ??C-36.9 ??C] 36.9 ??C Resp Rate: [16] 16 Blood Pressure: (103-125)/(68-82) 119/82 SpO2: [93 %-95 %] 95 % Flow Rate (L/min): [0 L/min] 0 L/min Pulse Rate: [72-85] 77 I/O last 3 completed shifts: In: 2305.9 [P.O.:1340] Out: 2750 [Urine:2750] PHYSICAL EXAM General: Resting in bed. Answers questions appropriately. Musculoskeletal: Operative extremity with sling in place. Surgical dressings clean, dry, and intact without strikethrough. Intact median, radial and ulnar motor function. Sensation diminished due to nerve block in axillary, radial, median, and ulnar nerve distributions. Palpable radial pulse. Fingers warm and well-perfused. DIAGNOSTICS Lab Results Component Value Date WBC 6.6 12/31/2021 HGB 8.9 (L) 12/31/2021 HCT 27.3 (L) 12/31/2021 MCV 83.7 12/31/2021 PLT 274 12/31/2021 Lab Results Component Value Date NA 134 (L) 12/31/2021 CL 103 12/31/2021 CO2 22 03/27/2021 Lab Results Component Value Date CREATININE 0.74 12/31/2021 Lab Results Component Value Date INR 1.1 02/15/2021 PT 12.5 02/15/2021 MICROBIOLOGY Microbiology Results (last 10 days) Procedure Component Value - Date/Time Bacteria Cult, Aerobe / Anaerobe+Susc [[id number]] Collected: 12/30/21 1411 Lab Status: In process Specimen: Shoulder, Left Updated: 12/30/21 1540 Narrative: Bacterial Culture: Placed in Bactec aerobic and Bactec anaerobic bottles Bacteria Cult, Aerobe / Anaerobe+Susc [[id number]] Collected: 12/30/21 1405 Lab Status: In process Specimen: Synovial Fluid, Left Shoulder Updated: 12/30/21 1519 Narrative: Bacterial Culture: Placed in Bactec aerobic and Bactec anaerobic bottles Bacteria Cult, Aerobe / Anaerobe+Susc [[id number]] Collected: 12/30/21 1404 Lab Status: In process Specimen: Shoulder, Left Updated: 12/30/21 1536 Narrative: Bacterial Culture: Placed in Bactec aerobic and Bactec anaerobic bottles Bacteria Cult, Aerobe / Anaerobe+Susc [[id number]] Collected: 12/30/21 1403 Lab Status: In process Specimen: Shoulder, Left Updated: 12/30/21 1533 Narrative: Bacterial Culture: Placed in Bactec aerobic and Bactec anaerobic bottles Bacteria Cult, Aerobe / Anaerobe+Susc [[id number]] Collected: 12/30/21 1403 Lab Status: In process Specimen: Shoulder, Left Updated: 12/30/21 1538 Narrative: Bacterial Culture: Placed in Bactec aerobic and Bactec anaerobic bottles SARS Coronavirus 2, Molecular Detection, PCR, Varies Asymptomatic [[id number]] Collected: 12/29/21 1111 Lab Status: Final result Specimen: Varies from Nasopharynx Updated: 12/29/21 1620 COVID-19, PCR, Source Swab, Nasopharynx COVID-19, PCR, Result Undetected Comment: SARS-CoV-2 RNA absent. This result does not rule out COVID-19 in the patient, as the sensitivity of the test depends on the timing of the specimen collection and quality of the specimen. Result should be correlated with patient's history and clinical presentation. ----ADDITIONAL INFORMATION---- This RT-PCR test using the M[employer] ([email or web address]) SARS-CoV-2 Assay ( [employer] performed on the Moseo ([email or web address]) Two Module System has received Emergency Use Authorization (EUA) by the U.S. Food and Drug Administration, and is modified from the ribbon hand's instructions with a bridging study. Performance characteristics were verified by [facility] in a manner consistent with CLIA requirements. Visit the CDC website: https://www.cdc.gov/coronavirus/ for the most recent guidelines on Coronavirus testing. Fact Sheet for Healthcare Providers: https://www.fda.gov/media/897483/download Fact Sheet for Patients: https://www.fda.gov/media/122491/download ASSESSMENT / PLAN IMPRESSION/REPORT/PLAN #1 Status post left reverse total shoulder arthroplasty resection with placement of an antibiotic spacer POD #2 Active Issues # Acute blood loss anemia - monitor CBC and transfuse as needed. Left shoulder prosthetic joint infection Comorbidities Present on Admission Past Medical History: Diagnosis Date ??? Anemia hx iron infusions ??? Anxiety Generalized Disorder ??? Arthritis ??? Asthma NOS ??? Cardiac Disease Hx PFO ??? Chronic Pain Syndrome ??? Fibromyalgia ??? Gastroesophageal Reflux Disease NOS ??? Migraine Headache ??? Pain Back ??? Personal History Unintended Awareness Under General Anesthesia ??? Post Operative Nausea/Vomiting ??? Stroke (HCC) 03/2019 ??? Transient Ischemic Attack Activity: NWB operative extremity. No active or passive range of motion of the shoulder or elbow or hand for 6 weeks Labs: Lab Results Component Value Date WBC 6.6 12/31/2021 HGB 8.9 (L) 12/31/2021 HCT 27.3 (L) 12/31/2021 MCV 83.7 12/31/2021 PLT 274 12/31/2021 INR 1.1 02/15/2021 Pain: multimodal regimen including regional anesthesia, cold compress, acetaminophen and oxycodone prn VTE Prophylaxis: pharmacoprophylaxis not indicated, recommend early ambulation and SCD's Cultures: Reviewed Antibiotics: 24-hour perioperative course of IV antibiotics Diet: Adult Diet Regular Discharge Diet for Adults Bowel Regimen: Senokot Imaging: postop X-rays obtained and reviewed which demonstrate a well positioned left antibiotic spacer arthroplasty Consults: physical therapy, acute pain service, Infectious Disease Hg a 8.9 Pain medication will be sent at the time of discharge Anticipated Disposition: Likely today if antibiotics can be finalized by home health For any questions or concerns from 6 am until 6 pm, please page Jam service For urgent matters from 6 pm until 6 am, please page Ortho House at [facility] [place] [phone] DE WIREMAN Trey Rdz R.N. - 12/31/2021 7:34 AM CST Post Anesthesia Assessment Note Patient: Angie Mosquera General Info Post-procedure day: 1 Follow-up type: inpatient regional Regional Block Information Description/location: interscalene Laterality: left Local anesthetic: bupivacaine 0.2% Rate (mL/hour): 6 Multi-modal Analgesics: Acetaminophen: yes Opioids: yes Assessment: General assessment: uncomplicated postoperative course Side effects and complications: no complications Catheter assessment: clean, intact, non tender Signs/symptoms of local anesthetic toxicity: none Site Assessment: Sensory: decreased sensation to light touch Motor: decreased motor strength Pain Assessment: Current static pain scale: 8/10 (Ms Mosquera states that her pain is located under her arm, the top of her shoulder is numb with minimal pain) Highest pain score last 24 hours: 9/10 Anticoagulation Therapy none Patient Care Plan:continue current management per plan/IPS protocol Overall Comments Patient to be discharged with onq pump later today or tomorrow DE WIREMAN Jey Matos D.O. - 12/31/2021 6:53 AM CST SUBJECTIVE Patient is doing well this morning. Pain is well controlled. No acute events overnight. Pending physical therapy. Infectious Disease has been consulted. OBJECTIVE VITAL SIGNS Temperature: [36.3 ??C-37 ??C] 36.4 ??C Heart Rate: [74-92] 86 Resp Rate: [11-31] 16 Blood Pressure: (96-124)/(44-77) 108/70 SpO2: [90 %-100 %] 91 % Flow Rate (L/min): [0 L/min-2 L/min] 0 L/min Height: [150.5 cm] 150.5 cm Weight: [69.9 kg] 69.9 kg BSA (Calculated - sq m): [1.71 sq meters] 1.71 sq meters BMI (Calculated): [30.9 kg/m??] 30.9 kg/m?? Pulse Rate: [65-92] 66 I/O last 3 completed shifts: In: 2873.3 [P.O.:620] Out: 1150 [Urine:1050; Blood:100] PHYSICAL EXAM General: Resting in bed. Answers questions appropriately. Musculoskeletal: Operative extremity with sling in place. Surgical dressings clean, dry, and intact without strikethrough. Intact median, radial and ulnar motor function. Sensation intact in axillary, radial, median, and ulnar nerve distributions. Palpable radial pulse. Fingers warm and well-perfused. DIAGNOSTICS Lab Results Component Value Date WBC 6.6 12/31/2021 HGB 8.9 (L) 12/31/2021 HCT 27.3 (L) 12/31/2021 MCV 83.7 12/31/2021 PLT 274 12/31/2021 Lab Results Component Value Date NA 134 (L) 12/31/2021 CL 103 12/31/2021 CO2 22 03/27/2021 Lab Results Component Value Date CREATININE 0.74 12/31/2021 Lab Results Component Value Date INR 1.1 02/15/2021 PT 12.5 02/15/2021 MICROBIOLOGY Microbiology Results (last 10 days) Procedure Component Value - Date/Time Bacteria Cult, Aerobe / Anaerobe+Susc [[id number]] Collected: 12/30/21 1411 Lab Status: In process Specimen: Shoulder, Left Updated: 12/30/21 1540 Narrative: Bacterial Culture: Placed in Bactec aerobic and Bactec anaerobic bottles Bacteria Cult, Aerobe / Anaerobe+Susc [[id number]] Collected: 12/30/21 1405 Lab Status: In process Specimen: Synovial Fluid, Left Shoulder Updated: 12/30/21 1519 Narrative: Bacterial Culture: Placed in Bactec aerobic and Bactec anaerobic bottles Bacteria Cult, Aerobe / Anaerobe+Susc [[id number]] Collected: 12/30/21 1404 Lab Status: In process Specimen: Shoulder, Left Updated: 12/30/21 1536 Narrative: Bacterial Culture: Placed in Bactec aerobic and Bactec anaerobic bottles Bacteria Cult, Aerobe / Anaerobe+Susc [[id number]] Collected: 12/30/21 1403 Lab Status: In process Specimen: Shoulder, Left Updated: 12/30/21 1533 Narrative: Bacterial Culture: Placed in Bactec aerobic and Bactec anaerobic bottles Bacteria Cult, Aerobe / Anaerobe+Susc [[id number]] Collected: 12/30/21 1403 Lab Status: In process Specimen: Shoulder, Left Updated: 12/30/21 1538 Narrative: Bacterial Culture: Placed in Bactec aerobic and Bactec anaerobic bottles SARS Coronavirus 2, Molecular Detection, PCR, Varies Asymptomatic [[id number]] Collected: 12/29/21 1111 Lab Status: Final result Specimen: Varies from Nasopharynx Updated: 12/29/21 1620 COVID-19, PCR, Source Swab, Nasopharynx COVID-19, PCR, Result Undetected Comment: SARS-CoV-2 RNA absent. This result does not rule out COVID-19 in the patient, as the sensitivity of the test depends on the timing of the specimen collection and quality of the specimen. Result should be correlated with patient's history and clinical presentation. ----ADDITIONAL INFORMATION---- This RT-PCR test using the [employer] ([employer]) SARS-CoV-2 Assay ( [employer] performed on the Moseo ([employer]) Two Module System has received Emergency Use Authorization (EUA) by the U.S. Food and Drug Administration, and is modified from the ribbon hand's instructions with a bridging study. Performance characteristics were verified by [facility] in a manner consistent with CLIA requirements. Visit the CDC website: https://www.cdc.gov/coronavirus/ for the most recent guidelines on Coronavirus testing. Fact Sheet for Healthcare Providers: https://www.fda.gov/media/943427/download Fact Sheet for Patients: https://www.fda.gov/media/269534/download ASSESSMENT / PLAN IMPRESSION/REPORT/PLAN #1 Status post left reverse total shoulder arthroplasty resection with placement of an antibiotic spacer POD #1 Active Issues # Acute blood loss anemia - monitor CBC and transfuse as needed. Left shoulder prosthetic joint infection Comorbidities Present on Admission Past Medical History: Diagnosis Date ??? Anemia hx iron infusions ??? Anxiety Generalized Disorder ??? Arthritis ??? Asthma NOS ??? Cardiac Disease Hx PFO ??? Chronic Pain Syndrome ??? Fibromyalgia ??? Gastroesophageal Reflux Disease NOS ??? Migraine Headache ??? Pain Back ??? Personal History Unintended Awareness Under General Anesthesia ??? Post Operative Nausea/Vomiting ??? Stroke (HCC) 03/2019 ??? Transient Ischemic Attack Activity: NWB operative extremity. No active or passive range of motion of the shoulder or elbow or hand for 6 weeks Labs: Lab Results Component Value Date WBC 6.6 12/31/2021 HGB 8.9 (L) 12/31/2021 HCT 27.3 (L) 12/31/2021 MCV 83.7 12/31/2021 PLT 274 12/31/2021 INR 1.1 02/15/2021 Pain: multimodal regimen including regional anesthesia, cold compress, acetaminophen and oxycodone prn VTE Prophylaxis: pharmacoprophylaxis not indicated, recommend early ambulation and SCD's Cultures: Reviewed Antibiotics: 24-hour perioperative course of IV antibiotics Diet: Adult Diet Regular Bowel Regimen: Senokot Imaging: postop X-rays obtained and reviewed which demonstrate a well positioned left antibiotic spacer arthroplasty Consults: physical therapy, acute pain service, Infectious Disease Hg a 8.9 Pain medication will be sent at the time of discharge Anticipated Disposition: Pending Infectious Disease recommendations for final antibiotic plan Jey Matos, DO Shoulder & Elbow Fellow [facility] For any questions or concerns from 6 am until 6 pm, please page Jam service For urgent matters from 6 pm until 6 am, please page Ortho House at [facility] [place] [phone] Trey Phan R.N. - 12/30/2021 4:39 PM CST Post Anesthesia Assessment Note Patient: Angie Mosquera General Info Post-procedure day: 0 (day of procedure) Follow-up type: inpatient regional Regional Block Information Description/location: interscalene Laterality: left Local anesthetic: bupivacaine 0.2% Rate (mL/hour): 6 Assessment: General assessment: uncomplicated postoperative course Side effects and complications: no complications Catheter assessment: clean, intact, non tender Signs/symptoms of local anesthetic toxicity: none Site Assessment: Sensory: decreased sensation to light touch Motor: decreased motor strength Pain Assessment: Current static pain scale: 3/10 Highest pain score last 24 hours: 4/10 Patient Care Plan:continue current management per plan/IPS protocol Feli Garg, Pharm.D., R.Ph. - 12/30/2021 11:33 AM CST Images from the original note were not included. Admission Medication History Note Adherence issues: No concerns Medication list source: Patient Medication related information: Patient would like a nicotine patch here if possible. Patient reports daily use of the following PRN meds: albuterol, zofran, meclizine, zanaflex and duonebs. She noted that she typically uses oxycodone 4-5 times daily at home. She is registered with the [facility] for medical cannabis and she gets her meds [place]. She was told to leave her medical cannabis at home, so has none with her currently. Per patient report, morphine was removed from her allergy list. She noted that fentanyl caused hallucinations, but only with large doses. Prior to Admission Medications Med List Status: Pharmacy Complete Set By: Feli Viveros, Pharm.D., R.Ph. at 12/30/2021 11:33 AM Taking? Last Dose Informant Start Date End Date LT albuterol (PROVENTIL HFA,VENTOLIN HFA) 90 mcg/actuation inhaler 12/29/2021 Self -- -- Inhale 2 puffs every 6 (six) hours as needed for wheezing or shortness of breath. ARTHRITIS PAIN RELIEF, ACETAM, 650 mg ER tablet 12/29/2021 Self 02/01/19 -- TAKE TWO TABLETS (1300MG) BY MOUTH EVERY EIGHT HOURS aspirin 325 mg tablet 12/19/2021 02/18/21 -- Take 1 tablet (325 mg total) by mouth daily. Patient taking differently: Take 325 mg by mouth every evening. Pt holding for surgery atorvastatin (LIPITOR) 80 mg tablet 12/29/2021 02/17/21 -- Take 1 tablet (80 mg total) by mouth at bedtime. Banophen 25 mg capsule 12/29/2021 02/16/21 -- Take 75 mg by mouth at bedtime. benzonatate (TESSALON PERLES) 100 mg capsule 12/29/2021 03/19/19 -- Take 100 mg by mouth 3 (three) times a day as needed for cough. buPROPion XL (WELLBUTRIN XL) 150 mg 24 hr tablet 12/30/2021 02/04/21 -- Take 150 mg by mouth every morning. znpswbonpg-ervisraatkmmd-sliw (ESGIC) 50-325-40 mg per tablet Past Week 02/27/21 -- Take 1 tablet by mouth every 6 (six) hours as needed for migraine. cetirizine (ZyrTEC) 10 mg tablet 12/29/2021 Self -- -- Take 10 mg by mouth 2 (two) times a day. cholecalciferol (VITAMIN D3) 125 mcg (5,000 Unit) tablet 12/29/2021 Self -- -- Take 125 mcg by mouth every morning. cyanocobalamin, vitamin B-12, 2,500 mcg tablet, sublingual 12/29/2021 Self 02/08/19 -- Place 2,500 mcg under the tongue every morning. diazePAM (VALIUM) 10 mg tablet 12/29/2021 Self 02/14/19 -- Take 10 mg by mouth 2 (two) times a day. esomeprazole (NexIUM) [address] capsule 12/30/2021 Self 11/19/17 -- Take 40 mg by mouth 2 (two) times a day before breakfast and dinner. Flovent HFA 110 mcg/actuation inhaler 12/29/2021 01/19/21 -- Inhale 2 puffs 2 (two) times a day. FLUoxetine (PROzac) 40 mg capsule 12/30/2021 Self -- -- Take 80 mg by mouth every morning. furosemide (LASIX) 40 mg tablet 12/29/2021 Self 02/08/19 -- Take 40 mg by mouth 2 (two) times a day. ipratropium-albuteroL (DUONEB) 0.5-2.5 mg/3 mL nebulizer solution Past Week 01/16/21 -- Inhale 3 mL by nebulization 4 (four) times a day as needed for shortness of breath or wheezing. lamoTRIgine (LaMICtal) 200 mg tablet 12/30/2021 02/08/19 -- Take 200 mg by mouth 2 (two) times a day. MAG-G 27 mg magnesium (500 mg) tablet 12/29/2021 02/16/19 -- Take 1 tablet by mouth at bedtime. meclizine (ANTIVERT) 25 mg tablet 12/29/2021 01/19/21 -- Take 25 mg by mouth every 6 (six) hours as needed for dizziness. medical cannabis capsule 12/29/2021 Self -- -- Take 1-4 capsules by mouth 2 (two) times a day as needed (pain). THC component: 10 mg CBD component: 0 mg medical cannabis oil inhalation 12/29/2021 Self -- -- Inhale as needed (pain). Vape THC: 5 mg dose - per pt medical cannabis oil oral Past Week Self -- -- Take 1 each by mouth as needed (pain). 1 spray as needed. 5 mg THC nicotine (NICOTROL NS) 10 mg/mL nasal spray Not Taking 02/03/21 -- 1-2 sprays every 1-2 hrs. as needed for cravings Patient not taking: Reported on 12/30/2021 nicotine (NICOTROL) 10 mg inhaler 12/29/2021 -- -- Inhale 1 puff as needed for smoking cessation. Puff on dispenser for several minutes each hour as needed for nicotine withdrawal symptoms. Change cartridge after two to four hours. ondansetron ODT (ZOFRAN-ODT) 8 mg disintegrating tablet 12/29/2021 Self 01/16/10 -- Take 1 tablet by mouth 3 (three) times a day as needed for nausea. oxyCODONE (ROXICODONE) 10 mg IR tablet 12/30/2021 08/23/20 -- Take 10 mg by mouth every 4 (four) hours as needed for pain. Max 4 tablets/day Takes daily polyethylene glycol (MIRALAX) 17 gram/dose oral powder Unknown Self 04/11/17 -- Take 17 g by mouth as needed for constipation. pregabalin (LYRICA) 300 mg capsule 12/30/2021 09/18/20 -- Take 600 mg by mouth 2 (two) times a day. QUEtiapine (SEROquel) 50 mg tablet 12/29/2021 08/19/20 -- Take 50 mg by mouth at bedtime. tiZANidine (ZANAFLEX) 4 mg tablet 12/29/2021 Self 03/27/19 -- Take 4-8 mg by mouth every 8 (eight) hours as needed for muscle spasms. Muscle spasms valACYclovir (VALTREX) 500 mg tablet 12/29/2021 Self 02/22/18 -- Take 500 mg by mouth as needed. Take 2 pills at onset of cold sore symptoms as needed zonisamide (ZONEGRAN) 100 mg capsule 12/30/2021 02/22/19 -- Take 300 mg by mouth 2 (two) times a day. DE WIREMAN documented in this encounter Procedure Notes Soraida Dick, R.N. - 01/01/2022 12:11 PM CSTAssociated Order(s): Place peripherally inserted central catheter (PICC) Place peripherally inserted central catheter (PICC) Date/Time: 01/01/2022 12:11 PM Performed by: Soraida Dick R.N. Authorized by: Dario Carrera M.D. Care team members present 1. Soraida Dick R.N. 2. Raya Anderson R.N. PROCEDURE DETAILS Select line: PICC Line type: temporary (non-tunneled, non-implanted) Line size: 3.0 FR Catheter to vein ratio less than 45%: yes Adult or Noel/Peds: adult # of lumens: single lumen Type of catheter: power injectable and valved Laterality: right IV location: basilic Optimal site selected: yes Number of insertion attempts: 1 Blood return: yes Placement assistance: ECG guidance and ultrasound guided Ultrasound image guidance used to localize target, identify at risk structures, and dynamically usedto direct therapy to the target. Image(s) not saved. Tip verification: ECG Catheter length (cm): 40 Initial exposed catheter (cm): 0 Mid upper arm circumference (cm): 31 All lumens flushed (Document volume in I/O): yes CONSENT Consent obtained: written UNIVERSAL PROTOCOL All [...] confirmed in a procedural pause. PRE-PROCEDURE DETAILS Indications: Needed after discharge for ongoing care Appropriate hand hygiene, gown, cap, mask, protective eyewear, sterile gloves, skin preparation, sterile drape, and strict aseptic technique were utilized as applicable for the procedure.: yes Site preparation: Chlorhexidine SEDATION / ANESTHESIA Anesthesia method: local infiltration Local infiltrate type: lidocaine POST-PROCEDURE DETAILS Procedure completed successfully: yes Complications: no apparent complications Comments Tissue adhesive has been applied to the PICC insertion site for securement, stabilization, and sealant. The purpose of the tissue adhesive is to reduce bleeding, reduce catheter movement/dislodgement, and protect the site from contamination. The tissue adhesive takes the place of a chlorhexidine gluconate (CHG) disk or dressing and also any other devices used for securement. Tissue adhesive will remain attached to the skin surface until natural cellular regeneration occurs (approx. 5-7 days).??It is intended to be used with a transparent film dressing. Site care is recommended every 7 days. If tissue adhesive is not reapplied at the time of site care,please assess, clean, and dress the PICC site per institutional guidelines. Residual tissue adhesive on the catheter tubing or skin during the dressing change does NOT need to be removed. If needed, any medical adhesive remover product may be used to release the adhesive from the skin. [email or web address]/products/secureportiv DE WIREMAN documented in this encounter Consult Notes Ruth Gonzalez P.T., D.P.T. - 12/31/2021 4:00 PM CST Physical Therapy Inpatient Evaluation/Treatment SUBJECTIVE Patient's Name: Angie Ashley Demetri Referring/Attending Provider: Cyrus Polk M.D. Medical Diagnosis: Shoulder Joint Disorder Left [M25.812] Direct Infection Of Left Shoulder In Infectious And Parasitic Diseases Classified Elsewhere (HCC) [M01.X12] Reason for Referral: PT Evaluate and Treat PT evaluate and treat; Hand on abdomen at all times be sides for hygiene. No use of shoulder, elbow, wrist, hand. Teach donning and doffing of shirts and slings. Onset Date: 12/30/21 Payor: MEDICARE / Plan: MEDICARE A AND [...] (HCC) ??? Nicotine Dependence Unspecified ??? Other Shelter Current Drug Therapy ??? 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 [...] 1993 History of Present Illness: Patient is a 56-year-old female with left infected reverse shoulder arthroplasty and now status post resection left reverse shoulder arthroplasty and spacer placement on 12/30/2021. Patient has history of CVA. Prior Function/Occupational Profile Dominant Hand: Right Lives With: Alone Receives Help From: ambulance attendant, Family, Friend(s) ADL Assistance: Required assistance ADL Assistance Comments: Gets help from [employer] for her bath/shower and for her meals IADL/Homemaking Assistance: Required assistance IADL/Homemaking Assistance Comments: Gets help for housecleaning Driving: Independent Occupational Role: On disability Prior Mobility/Functional Transfers Level of Hooker: Modified independent Gait Devices/Wheelchair Used: Cane Gait Devices/Wheelchair Used Comments: Used a four-wheeled walker in the past so she could carry things in her four-wheeled walker basket; has been using a single point cane with difficulty due to it slipping away from her Home Equipment Gait Devices Owned: Four-wheeled walker, Cane Other DME Equipment : Other (Comment) (Electric, recliner, massage chair that she sleeps in) Home Living Home Layout: One level Home Access: Level entry Bathroom Shower/Tub: Tub/shower unit Tub/shower unit location: Main floor Bathroom Toilet: Standard Dominant Hand: Right Family/Caregiver Present: No Patient Comments: Patient lives in an apartment with a son next door on one side and a friend on theother side Precautions Weight Bearing Status: Left upper extremity nonweightbearing Other Precautions: Fall, impaired cognition, vertigo Fall Risk (65 and older) Fall in the last 12 months: Yes (She cannot give a number, sounds like many, states she gets off balance) Did you have an injury with the fall?: No (Patient states that she knows how to fall so that she does not hit her head) Are you fearful of falling?: No (I watch it and try not to do too much when I know that I am not feeling so good medically.) OBJECTIVE Angie's NOHARM modalities were not used during their therapy session. Cognition Orientation: Oriented X4 Safety/Judgment Comments: History of impairments Cognition Comments: History of impairments Vision/Sensation Basic Assessment Light Touch: No deficits General ROM / Strength Screening ROM - Upper Extremity Screen: Impaired left ROM - Lower Extremity Screen: Addressed, no concerns noted Strength - Upper Extremity Screen: Impaired left Strength - Lower Extremity Screen: Addressed, no concerns noted Bed Mobility - Supine to Sit # of Assistants: 1 Level of Assistance: Minimal assistance Device: Bed rail Sit to Stand Transfers # of Assistants: 1 Transfer Surface: Bed Transfer Equipment: Quad cane, Gait belt Level of Assistance: Minimal assistance Assessment/Delivery: Assessed Stand to Sit Transfers # of Assistants: 1 Transfer Surface: Toilet/Commode Transfer Equipment: Quad cane, Gait belt Level of Assistance: Minimal assistance Gait Assessment/Training Distance (m): 30 m Surface: Even, Smooth/hard Device: Gait belt, Quad cane # of Assistants: 1 Level of Assistance: Minimal assistance Quality/Pattern: Shuffling Stability: Good Cueing Provided: Verbal Response: Patient prefers the quad cane over the single point cane she was using pre-opearatively PT ADL Training ADL Training: Took left daily sling off and adjusted it to the proper size with no left upper extremity motion using seated technique with arm supported on pillows in the sling position; used the long,elastic, adjustable ice bag strap to hold the arm close to the body given her strict orders The following coordination of care occurred today: email sent to patient with seated technique video links for donning and doffing of shirts and the shower sling/daily sling with no movement of the left upper extremity (also gave patient and nurse instructions on how to watch these same video on her hospital TV) Patient's nurse was contacted and patient's status was discussed Patient was left on toilet at end of session with call light in reach and [employer] present, all needs metand questions answered. Contact monitoring: PPE used during therapy: Therapist was wearing the following PPE throughout entire session: surgicalmask and eye protection Patient was wearing a mask during therapy session: yes, when out of room Outcome Measures [facility] Inpatient Short Form: -[facility] Basic Mobility (V.2) How much [...] Climbing 3-5 steps with a railing?: A Lot AM-[facility] Basic Mobility (V.2) Raw Score: 17 AM-PAC Basic Mobility (V.2) Standardized Score: 39.67 Interpretation: Clinicians answer the AM-PAC Inpatient Short [...] had an average score of 11.5 Assessment Skilled therapy can include physical therapy provided by home health, outpatient clinic, or a post-acute facility. The location of these services is determined by the patient's care team in partnershipwith patient/family. Equipment Recommended - PT: 4-point cane Barriers to Discharge Home: Other (Comment) (Dependent on caregiver availability) Clinical Impression of today's session: Currently, patient presents with impairments including weakness resulting in the following functional deficits: needs quad cane and transfer training as well as caregiver training due to no shoulder tohand motion allowed. Maximized mobility with quad cane; began transfer training; removed daily slingand adjusted it to her size. Rehab potential: Ms. Mosquera has Good potential to achieve established physical therapy goals withinthe time frame outlined below. Progress: Progressing toward goals Tiered PT Evaluation Codes: Comorbid Conditions: Cerebrovascular accident, Mental health disorder Personal Factors: Living situation, Needs assistive device, Safety awareness, Other (Comment) (Memory) Examination elements: 4+ Clinical Presentation: Stable Clinical Decision Making: Low complexity clinical decision making Functional Goals: PT Inpatient Goals PT Goal #1: Patient will be able to transfer to and from all surfaces with contact guard assistance as per home set-up. PT Goal #2: Patient and helper will be able to teach back with demonstration the seated edge of bed technique with the use of pillows to support the arm for shirt, shower sling and daily sling donning and doffing. PT Goal #3: Patient will be able to ambulate 25 m with right handed quad cane with minimal assistance. Plan Patient agrees with the plan of care and goals. Treatment Plan: Plan: Plan of care initiated PT Amount: 1 visit per day PT Frequency: 7 times per week PT Inpatient Duration : Until goals are met or hospital discharge Requires Inpatient Follow-Up: Yes PT - Next Inpatient Appointment: 01/01/22 PT Plan Comments: Teach friend of patient seated shirt and sling donning and doffing with no shoulder, elbow, wrist or hand motion; transfers and gait with right handed quad cane; provide prescription for quad cane Treatment interventions may include: Treatment/Interventions: Therapeutic exercise, Therapeutic functional activity, Gait training Billing: Time Spent with Patient PT Eval - Low Complexity: 8 min Therapeutic Activity (min): 28 min Total Timed Units (min): 28 min Total Treatment Time (min): 36 min Ruth Gonzalez P.T., Juice.P.T. DE WIREMAN Thao You L.I.C.S.W., M.S.W. - 12/31/2021 2:04 PM CSTAssociated Order(s): IP CONSULT TO CARE MANAGEMENT; IP CONSULT TO CARE MANAGEMENT; IP CONSULT TO CARE MANAGEMENT Psychosocial Assessment SUBJECTIVE DEMOGRAPHIC INFORMATION Person(s) present during interview: Patient Primary care clinic and provider: [facility] Primary Language: Kazakh Legal Information: Legal decision maker for self Citizenship: [place] citizen REASON FOR CONSULT Social work met with patient due to an ESDP of 12. Disclaimer: The patient was advised regarding the various topics to be interviewed during this evaluation. Patient consented to proceed. The information provided in the assessment is based on review ofthe medical record as well as the face to face interview with the patient. The patient was advised that the content of this interview will be shared with the health care team. It was discussed with thepatient that staff are mandated reporters and they reported understanding. SOCIAL HISTORY Marital Status / Family / Household Status: Patient resides alone in [place], [place]. She lives in a two bedroom apartment. Patient has four adultchildren two of whom live in [place]. Patient son Rafal lives next door to patient. Support Systems: Family members, Friends/neighbors. We have not received permission to contact them. Primary caregiver: Self Accompanied by/Relationship: None Support System: Family members, Friends/neighbors Spirituality / Orthodoxy / Culture: , None History: No Education: High school Employment: Disabled Psychosocial Risk Factors impacting the patient: Resides alone, mental health issues Abuse, Neglect, Maltreatment, Trauma: Current: None reported. Past: None reported. ENVIRONMENTAL SUPPORTS Current Living Situation: Private residence Patient's Home Environment: Resides in a two bedroom apartment on the [address] [facility] Care Facility Name (if applicable): NA Anticipated modifications to the patient's home environment: None FUNCTIONAL STATUS (ADL's and IADL's) Functional Status: Independent Level of Assistance: Independent Dressing: Independent Feeding: Independent Bathing: Independent Grooming: Independent Toileting: Independent Transfer to/from Bed, Chair, Etc.: Independent Mobility: Independent Meal Prep: Independent Medication Setup/Administration: Independent Telephone Use: Independent Housekeeping: Independent Shopping: Independent Managing Finances: Independent Behavior: Oriented Communication: Reads, writes and speaks Kazakh It is anticipated that the patient will need assistance with .Dressing,bathing, meal prep, housekeeping, shopping ASSISTIVE DEVICES Patient has the following equipment: Eyeglasses, Dentures upper, Dentures lower, cane, walker Patient anticipates potentially needing the following additional equipment: None Transportation needs: Independent to drive, support from family and friends SERVICES REQUESTED Infusion therapy [employer] Formal and Informal Resources: Patient receives home health aid services three times per week and snf visit one time every two weeks through [facility]. FINANCES/INSURANCE Primary insurance: MEDICARE A AND B Secondary insurance: MEDICA ADVANCE DIRECTIVES Advance Directive: Patient does not have advance directive, does not want information DISCHARGE PLANNING Patient is planning on returning home upon her discharge. She currently receives home health aid services and snf through [facility]. Patient also has support from a son wholives next door to her and friends who live in her building. Patient will discharge with IV antibiotics for 6 weeks. Patient will need infusion therapy and PICC site care and labs either in-home or outpatient. OBJECTIVE MEDICAL HISTORY Patient has a past medical history significant for L [...] PJI as part of a 2-stage exchange. MENTAL HEALTH Mental Health History: Patient has a history of depression and anxiety. She is currently taking psychotropic medications for symptom management. She states she has never been in counseling. Suicide: No Homicidal: No SUBSTANCE USE Patient reports she does not drink alcohol or use any mood altering chemicals. Current Stressors Chronic pain, ongoing medical issues Coping Skills/Strengths Family support, Time with friends and Time with pets ASSESSMENT / PLAN IMPRESSION Patient is a 56 year old female who is hospitalized for a shoulder revision. Social work met with patient at bedside, introduced self and the role of social work in the hospital setting. Patient was laying in bed watching tv at time of the visit. Patient was alert and oriented and open to discussing her discharge plan. Patient seemed well aware of her needs upon discharge as this is not the first time she has had surgery on this shoulder. She did seem to have some difficulty with memory and staying on task but was easily redirected. Patient has a good support group consisting of family, friends and[place] health services through [facility]. INTERVENTIONS ?? Psychosocial assessment ?? Rapport building ?? Education on coping with chronic pain. PLAN ?? Social work will continue to follow for discharge planning and support. ?? Social work did speak with Pat at [facility] to confirm home health services. ?? Social work will work on infusion therapy referrals as well as home health/outpatient picc site care and labs. Anticipated barriers to the transition of care/plan: None Joe Ervin, M.S.WBritton 12/31/2021 DE WIREMAN Jose Guadalupe Nixon M.D. - 12/31/2021 7:31 AM CSTAssociated Order(s): IP CONSULT TO INFECTIOUS DISEASES Infectious Diseases Orthopedic Surgery [facility] Consulting Service Consult Note SUBJECTIVE REASON FOR CONSULT We are seeing Ms. Mosquera at the request of Cyrus Polk M.D. to give further recommendations for evaluation and management of grossly infected and loose reverse total shoulder, s/p antibiotic spacer placement. HISTORY OF PRESENT ILLNESS Ms. 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 For complete details, please refer to primary service notes. In brief, the patient underwent primaryTSA (2015) with reverse TSA revision (08/2020) complicated by MSSE s/p debridement and component retention (02/2021) with treatment with clindamycin given multiple antibiotic allergies. Given resistance profile, she was subsequently changed to IV vancomycin for 6 weeks at that time and was subsequentlytransitioned to PO doxycycline despite documented resistance on OSH AST. She presented to [facility] (unclear if on antibiotics) for further evaluation given persistent L shoulder pain 08/2021 prompting aspiration (09/25/21) which revealed elevated TNC (19368) with 81% PMNs with cultures positive for1 colony of MSSE and detection of the same organism via broad range PCR. Radiographically, glenoid components appeared loose and the patient agreed to proceed with two-stage exchange arranged for 12/30. Patient underwent resection arthroplasty following MAYTE (12/29). Intraoperative findings were remarkable for reshma pus present in the shoulder with prosthesis removal and placement of antibiotic spacer coated with gentamicin and vancomycin cement following thorough debridement. The patient was subsequently admitted to [facility] for further management. Intraoperative cultures and synovial fluid cultures are pending. Since admission, she has remained hemodynamically stable and was initiated on IV cefazolin therapy postoperatively. On further review, she received perioperative prophylaxis with cefazolin. She has multiple documented antimicrobial allergies including amoxicillin, cephalosporins, and TMP-SMX but appears to be tolerating cefazolin while in hospital. History Review Negative except as per HPI. REVIEW OF SYSTEMS Negative except as per HPI. OBJECTIVE General: Not in acute distress, resting comfortably in bed, alert and oriented to person, place and time. Eyes: Anicteric sclera. ENT: Mucous membranes moist, no evidence of exudate. Heart: Regular rate, and rhythm, no murmurs, gallops, or rubs appreciated, normal S1 and S2 heart sounds, no signs of peripheral edema, radial pulses equal bilaterally. Lungs: Clear to auscultation bilaterally, no rhonchi, rales, or wheezes, no increased work of breathing. Abdomen: Non-distended, nontender to deep and light palpation, normal bowel sounds, no organomegaly. Skin: Multiple tattoos. Nerve block in place. Dressing clean. Mental: Appropriate mood and affect. DIAGNOSTICS I have reviewed diagnostics. Studies of note include: Microbiology Results (last 10 days) Procedure Component Value - Date/Time Bacteria Cult, Aerobe / Anaerobe+Susc [[id number]] Collected: 12/30/21 1411 Lab Status: In process Specimen: Shoulder, Left Updated: 12/30/21 1540 Narrative: Bacterial Culture: Placed in Bactec aerobic and Bactec anaerobic bottles Bacteria Cult, Aerobe / Anaerobe+Susc [[id number]] Collected: 12/30/21 1405 Lab Status: In process Specimen: Synovial Fluid, Left Shoulder Updated: 12/30/21 1519 Narrative: Bacterial Culture: Placed in Bactec aerobic and Bactec anaerobic bottles Bacteria Cult, Aerobe / Anaerobe+Susc [[id number]] Collected: 12/30/21 1404 Lab Status: In process Specimen: Shoulder, Left Updated: 12/30/21 1536 Narrative: Bacterial Culture: Placed in Bactec aerobic and Bactec anaerobic bottles Bacteria Cult, Aerobe / Anaerobe+Susc [[id number]] Collected: 12/30/21 1403 Lab Status: In process Specimen: Shoulder, Left Updated: 12/30/21 1533 Narrative: Bacterial Culture: Placed in Bactec aerobic and Bactec anaerobic bottles Bacteria Cult, Aerobe / Anaerobe+Susc [[id number]] Collected: 12/30/21 1403 Lab Status: In process Specimen: Shoulder, Left Updated: 12/30/21 1538 Narrative: Bacterial Culture: Placed in Bactec aerobic and Bactec anaerobic bottles SARS Coronavirus 2, Molecular Detection, PCR, Varies Asymptomatic [[id number]] Collected: 12/29/21 1111 Lab Status: Final result Specimen: Varies from Nasopharynx Updated: 12/29/21 1620 COVID-19, PCR, Source Swab, Nasopharynx COVID-19, PCR, Result Undetected Comment: SARS-CoV-2 RNA absent. This result does not rule out COVID-19 in the patient, as the sensitivity of the test depends on the timing of the specimen collection and quality of the specimen. Result should be correlated with patient's history and clinical presentation. ----ADDITIONAL INFORMATION---- This RT-PCR test using the [employer] ([employer]) SARS-CoV-2 Assay ( [employer]) performed on the [employer] ([employer]) Two Module System has received Emergency Use Authorization (EUA) by the U.S. Food and Drug Administration, and is modified from the ribbon hand's instructions with a bridging study. Performance characteristics were verified by [facility] in a manner consistent with CLIA requirements. Visit the CDC website: https://www.cdc.gov/coronavirus/ for the most recent guidelines on Coronavirus testing. 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 Previous intraoperative cultures of isolated MSSE around the time of prior surgery which is consistent with aspiration results from original [facility] evaluation which is likely bilingual sales representative of the culprit organism causing her PJI. For treatment as part of 2-stage exchange, we anticipate at least 6 weeks of targeted IV antimicrobial therapy pending intraoperative culture results. As we await further information, it is appropriateto continue the patient on IV cefazolin as currently prescribed despite her history of cephalosporinallergy as she appears to have tolerated the medication well while in the hospital. RECOMMENDATIONS: 1. Continue IV cefazolin 2g q8h. 2. Please obtain CBC and CMP. 3. Follow-up intraoperative culture results. 4. Anticipate 6 weeks of IV antimicrobial therapy via PICC line. 5. Please consult Care Management for coordination of IV antimicrobial therapy. Treatment plan reviewed with Ms. Mosquera, who expressed understanding. All questions answered to patient's satisfaction. This case was discussed with Dr. Salvador. We will follow along closely. Please page the [facility] service pager at [phone] with questions. Thank you for the consultation. Jose Guadalupe Nixon M.D. DE WIREMAN Associated attestation - Gucci Salvador M.D. - 12/31/2021 6:07 PM INSIDE WIREMAN DEMOGRAPHIC INFORMATION Clinic Number:[id number] Patient Name: Angie Mosquera Date: 12/31/21 Service: Orthopedic Infectious Disease Consultation Service Note Type: Supervisory Note I have seen and examined the patient, reviewed the electronic medical record, and discussed in detail with our team. I agree with clinical Infectious Diseases note by Jose Guadalupe Nixon M.D dated 12/31/21. Please see that note for full details of history of present illness, review of systems, past medical history, social history, physical exam, and assessment and plan. I have personally reviewed laboratory studies, microbiology studies. Imaging studies personally reviewed by me and I agree with the report. Please see the associated note for full details. Recommendations: Okay to place PICC line Await culture data If it is an oxacillin susceptible Staph epidermidis our plan is to dismiss her on ceftriaxone once aday for the 6 week duration through February 06, 2022. Gucci Salvador M.D. documented in this encounter Nursing Notes Fanny Sifuentes R.N. - 01/01/2022 5:17 PM CST Patient discharge criteria met. Pain under control with oral pain medications and interscalene block. VSS,afebrile. Tolerated po intake and no c/o nausea. Voiding without difficulty. Patient take home prescriptions: Ceftriaxone, .9NS flush prescriptions, and Oxycodone. Oxycodone filled here at [facility] pharmacy. Patient going home with an interscalene block OnQ pump. Transportation provided by her son. DE WIREMAN Fanny Sifuentes R.N. - 12/31/2021 11:00 PM CST Shift Goals: Manage pain, ambulate out in the hallway. Identify possible barriers to meeting goals/advancing plan of care: none End of Shift Summary: Patient stated pain decreased from an 8/10 to 6/10 after taking Oxycodone q 3 hrs prn. Patient stated 6/10 is at a tolerable level. Patient refused to walk out in the hallways,butagree to walked in the room. Nurse will continue to monitor patient pain throughout the night. Problem: SAFETY ADULT Goal: Maintain a safe environment Outcome: Progressing Problem: SAFETY ADULT - RISK FOR FALL AND OR FALL INJURY Goal: Patient remains free from fall/fall injury Outcome: Progressing Problem: PAIN - ADULT Goal: PT VERBALIZES/DEMONSTRATES ADEQUATE COMFORT LEVEL OR BASELINE Outcome: Progressing Problem: KNOWLEDGE DEFICIT Goal: Patient/family/caregiver demonstrates understanding of disease process, treatment plan, medications, and discharge instructions Outcome: Progressing Problem: INFECTION - ADULT Goal: Absence of infection during hospitalization Outcome: Progressing Problem: SKIN/TISSUE INTEGRITY Goal: Skin/Tissue integrity maintained or improved Outcome: Progressing Goal: Oral and Nasal mucous membranes remain intact Outcome: Progressing Ezequiel Groves R.N. - 12/30/2021 10:27 PM CST Shift Goals: Clinical Goals for the Shift: Patient's pain will be within her tolerable range during shift. Patient will remain safe during shift. Identify possible barriers to meeting goals/advancing plan of care: none End of Shift Summary: Patient's pain was controlled with oral medications throughout shift. She consistently rated her pain at 7, but stated that was tolerable for her most of the time. Patient was able to ambulate safely with gait belt and staff assistance to bathroom. Navin Hernandez R.N. DE WIREMAN documented in this encounter OR Notes Op Note - Cyrus Polk M.D. - 12/30/2021 2:50 PM CST STAFF: Cyrus Polk M.D. RESIDENT: Dario Carrera M.D. PRE-OPERATIVE DIAGNOSIS Left infected reverse arthroplasty. POST-OPERATIVE DIAGNOSIS Left infected reverse arthroplasty. A auction assistant was necessary for one or more of the following: Opening, exposure, and visualization during the case; maintaining hemostasis; wound closure. PROCEDURE: Left shoulder resection, infected reverse arthroplasty, implantation antibiotic spacer. CULTURES: Three cultures, one pathology. FINDINGS As expected. COMPLICATIONS None. DESCRIPTION OF PROCEDURE Patient brought to the operating room where she underwent satisfactory anesthesia, carefully padded and positioned in beach chair position. The affected upper extremity sterilely prepped, draped in usual manner. Anterior skin incision was made. Skin incised as well as fat. Deltopectoral interval was identified. There was reshma pus present in the shoulder. It was grossly infected. This was carefully debrided. The humerus was dislocated, the tray was removed, the stem was retained. The glenoid inspected. The glenoid component was removed. It had mild mobility and was undermined and removed. It was thoroughly debrided on the humeral side. The stem was undermined and removed. The fresh real stem was coated with high-dose antibiotics, 2 of gentamicin, 2 of vancomycin per batch of cement, and the cement was allowed to harden. Then the stem was inserted. With the trial head, excellent stability and range of motion. Real head placed. Shoulder reduced. Glenohumeral motion very smooth and stable. Shoulder thoroughly irrigated multiple times during the course of the procedure. There was no rotator cuff to repair. The deltopectoral interval was closed with PDS sutures, subcutaneous tissue with 2-0 Monocryl, running Monocryl placed in the skin. Dermabond, Steri-Strips, sterile dressing applied. Patient'sarm placed in a sling, brought to recovery in stable condition. TPR: 3, Removal reverse arthroplasty, implantation antibiotic spacer Cyrus Polk M.D. CT CT Job ID: [id number] DE WIREMAN documented in this encounter Miscellaneous Notes Hospital Course - Dario Carrera M.D. - 01/01/2022 8:50 AM CST The patient was taken to the operating room by Dr. Polk and underwent Left shoulder resection arthroplasty. The patient tolerated the procedure well. Please see Dr. Polk's operative note for complete details. After a brief period of recovery in the post-anesthesia care unit, the patient was transferred to the regular hospital floor. Physical therapy was initiated on post-operative day 1. At the time of dismissal, the patient is ambulating with physical therapy, voiding spontaneously, tolerating an oral diet, and pain is controlled on oral medications. DE WIREMAN documented in this encounter Plan of Treatment Scheduled Referrals Name Type Priority Associated Diagnoses Order S [facility] Outpatient Referral Routine Direct Infection Of Ordered: Health Referral Left Shoulder In 01/01/20 22 Infectious And Parasitic Diseases Classified Elsewhere (HCC) documented as of this encounter Procedures Procedure Name Priority Date/Time Associated Comments Diagnosis PLACE PERIPHERALLY Routine 01/01/2022 12:11 Resul ts for this INSERTED CENTRAL PM INSIDE WIREMAN procedure a re in CATHETER (PICC) the results section. REMOTE OXIMETRY Routine 12/31/2021 5:23 MONITORING CONT. PM INSIDE WIREMAN REMOTE OXIMETRY Routine 12/31/2021 5:23 MONITORING CONT. PM INSIDE WIREMAN BACTERIA / MANDI Routine 12/31/2021 4:04 Result s for this CULTURE, BLOOD PM INSIDE WIREMAN procedure are in the results section. BACTERIA / MANDI Routine 12/31/2021 3:52 Result s for this CULTURE, BLOOD PM INSIDE WIREMAN procedure are in the results section. ADULT OXYGEN THERAPY Routine 12/31/2021 8:01 AM INSIDE WIREMAN CBC WITH Routine 12/31/2021 4:25 Results for this DIFFERENTIAL, B AM INSIDE WIREMAN procedure ar e in the results section. BASIC METABOLIC Routine 12/31/2021 4:25 Results f or this PANEL, S/P AM INSIDE WIREMAN procedure are i n the results section. ADULT OXYGEN THERAPY Routine 12/30/2021 8:01 PM INSIDE WIREMAN ADULT OXYGEN THERAPY Routine 12/30/2021 5:12 PM INSIDE WIREMAN ADULT OXYGEN THERAPY Routine 12/30/2021 5:12 PM INSIDE WIREMAN ADULT OXYGEN THERAPY Routine 12/30/2021 3:46 PM INSIDE WIREMAN ADULT OXYGEN THERAPY Routine 12/30/2021 3:46 PM INSIDE WIREMAN DX SHOULDER LEFT 1 RAD - Timed (for 12/30/2021 3:41 Re sults for this VIEW specific PM INSIDE WIREMAN procedure are i n dates/times) the results section. SURGICAL PATHOLOGY, Routine 12/30/2021 2:15 Shoulder Joint Res ults for this FROZEN LAB PM INSIDE WIREMAN Disorder Left procedure are in the results section. BACTERIA CULT, Routine 12/30/2021 2:11 Results fo r this AEROBE/ANAEROBE+SUSC PM INSIDE WIREMAN procedu re are in the results section. BACTERIA CULT, Routine 12/30/2021 2:05 Results fo r this AEROBE/ANAEROBE+SUSC PM INSIDE WIREMAN procedu re are in the results section. BACTERIA CULT, Routine 12/30/2021 2:04 Results fo r this AEROBE/ANAEROBE+SUSC PM INSIDE WIREMAN procedu re are in the results section. BACTERIA CULT, Routine 12/30/2021 2:03 Results fo r this AEROBE/ANAEROBE+SUSC PM INSIDE WIREMAN procedu re are in the results section. BACTERIA CULT, Routine 12/30/2021 2:03 Results fo r this AEROBE/ANAEROBE+SUSC PM INSIDE WIREMAN procedu re are in the results section. ARTHROPLASTY 12/30/2021 12:34 Shoulder Joint RESECTION SHOULDER PM INSIDE WIREMAN Disorder Left documented in this encounter Results Place peripherally inserted central catheter (PICC) (01/01/2022 12:11 PM INSIDE WIREMAN) Narrative MMODAL - 01/01/2022 12:11 PM INSIDE WIREMAN Soraida Dick R.N. ? 01/01/2022 12:[address] peripherally inserted central cath eter (PICC) Date/Time: 01/01/2022 12:11 PM Performed by: Soraida Dick R.N. Authorized by: Dario Carrera M. D. Care team members present 1. Soraida Dick R.N. 2. Raya Anderson R.N. PROCEDURE DETAILS Select line: PICC ?? Line type: temporary (non-tunneled, non- implanted) Line size: 3.0 FR Catheter to vein ratio less than 45%: ye s Adult or Noel/Peds: adult # of lumens: single lumen Type of catheter: power injectable and v alved Laterality: right IV location: basilic Optimal site selected: yes ?? Number of insertion attempts: 1 Blood return: yes ?? Placement assistance: ECG guidance and u ltrasound guided Ultrasound image guidance used to locali ze target, identify at risk structures, and dynamically used to dire ct therapy to the target. Image(s) not saved. Tip verification: ECG Catheter length (cm): 40 Initial exposed catheter (cm): 0 Mid upper arm circumference (cm): 31 All lumens flushed (Document volume in I /O): yes ?? CONSENT Consent obtained: written UNIVERSAL PROTOCOL All [...] in a procedu ral pause. PRE-PROCEDURE DETAILS Indications: ??Needed after discharge fo r ongoing care Appropriate hand hygiene, gown, cap, mas k, protective eyewear, sterile gloves, skin preparation, sterile drape, and strict aseptic technique were utilized as applicable for the procedure .: yes ?? Site preparation: ??Chlorhexidine SEDATION / ANESTHESIA Anesthesia method: local infiltration Local infiltrate type: lidocaine POST-PROCEDURE DETAILS ?? Procedure completed successfully: yes ?? Complications: no apparent complications Comments Tissue adhesive has been applied to the PICC insertion site for securement, stabilization, and sealant. The purpose of the tissue adhesive is to reduce bleeding, reduce catheter m ovement/dislodgement, and protect the site from contamination. The tissue adhesive takes the place of a chlorhexidine gluconate (CHG) disk or dr essing and also any other devices used for securement. Tissue adhesive will remain attached to the skin surface until natural cellular regeneration occurs (approx. 5- 7 days).??It is intended to be used with a transparent film dressing. Site care is recommended every 7 days. I f tissue adhesive is not reapplied at the time of site care, please assess, clean, and dress the PICC site per institutional guidelines. Residual tissue adhesive on the catheter tubing or skin during the dressing change does NOT need to be fabian jose. If needed, any medical adhesive remover product may be used to release the adhesive from the skin. [email or web address]/secur eportiv Dario Carrera M.D. PROCEDURE/MINOR SURGICAL ORD ERABLES Performing Organization Address City/State/ZIP Code Phon e Number MMODAL MMODAL NA Bacteria / Mandi Culture, Blood #2 (12/31/2021 4:04 PM INSIDE WIREMAN) [facility] gist Method Time Signature Bacteria/Valerie No growth 01/05/2022 DT da Culture, after 5 5:02 PM INSIDE WIREMAN Blood days of incubation. Specimen (Source) Anatomical Collection Method Collection Time Re ceived Time Location / / Volume Laterality Blood (Blood, 12/31/2021 4:04 12/31/2021 4:51 Peripheral Draw) PM INSIDE WIREMAN PM INSIDE WIREMAN Comment: Specimen Source Site: Blood Narrative [facility] - 01/05/2022 5:02 PM INSIDE WIREMAN Received Bactec aerobic and Bactec anaer obic bottles Dario Carrera M.D. LAB MICROBIOLOGY - GENERAL O RDERABLES Performing Organization Address City/[facility]/ZIP Code Phon e Number [facility] - [address] [place], [place] [address] [place] [address] [facility] [address] [facility] Bacteria / Mandi Culture, Blood #1 (12/31/2021 3:52 PM INSIDE WIREMAN) [facility] [employer] Method Time Signature Bacteria/Valerie No growth 01/05/2022 DTL da Culture, after 5 5:02 PM INSIDE WIREMAN Blood days of incubation. Specimen (Source) Anatomical Collection Method Collection Time Re ceived Time Location / / Volume Laterality Blood (Blood, 12/31/2021 3:52 12/31/2021 4:50 Peripheral Draw) PM INSIDE WIREMAN PM INSIDE WIREMAN Comment: Specimen Source Site: Blood Narrative [facility] - 01/05/2022 5:02 PM INSIDE WIREMAN Received Bactec aerobic and Bactec anaer obic bottles Dario Carrera M.D. LAB MICROBIOLOGY - GENERAL O RDERABLES Performing Organization Address City/State/ZIP Code Phon e Number [address] [place] [address] [facility] (ABNORMAL) CBC with Differential, Blood (12/31/2021 4:25 AM INSIDE WIREMAN) [facility] Method Time Signature Hemoglobin 8.9 (L) 11.6 - 12/31/2021 DTL 15.0 g/dL 5:15 AM INSIDE WIREMAN Hematocrit 27.3 (L) 35.5 - 12/31/2021 DTL 44.9 % 5:15 AM INSIDE WIREMAN Erythrocytes 3.26 (L) 3.92 - 12/31/2021 DTL 5.13 5:15 AM INSIDE WIREMAN x10(12)/L MCV 83.7 78.2 - 12/31/2021 DTL 97.9 fL 5:15 AM INSIDE WIREMAN RBC Distrib Width 19.6 (H) 12.2 - 12/31/2021 DTL 16.1 % 5:15 AM INSIDE WIREMAN Platelet Count 274 157 - 371 12/31/2021 DTL x10(9)/L 5:15 AM INSIDE WIREMAN Leukocytes 6.6 3.4 - 9.6 12/31/2021 DTL x10(9)/L 5:15 AM INSIDE WIREMAN Neutrophils 4.91 1.56 - 12/31/2021 DTL 6.45 5:15 AM INSIDE WIREMAN x10(9)/L Lymphocytes 1.10 0.95 - 12/31/2021 DTL 3.07 5:15 AM INSIDE WIREMAN x10(9)/L Monocytes 0.61 0.26 - 12/31/2021 DTL 0.81 5:15 AM INSIDE WIREMAN x10(9)/L Eosinophils <0.03 0.03 - 12/31/2021 DTL 0.48 5:15 AM INSIDE WIREMAN x10(9)/L Basophils <0.03 0.01 - 12/31/2021 DTL 0.08 5:15 AM INSIDE WIREMAN x10(9)/L Specimen Anatomical Collection Method Collection Time Receive d Time (Source) Location / / Volume Laterality Blood (Blood, 12/31/2021 4:25 AM 12/31/19 5:04 Venous) INSIDE WIREMAN AM INSIDE WIREMAN Dario Carrera M.D. LAB BLOOD ADD-ON Performing Organization Address City/State/ZIP Code Phon e Number [facility] - [address] [place] [address] [address] [place] [address] [facility] [address] [facility] (ABNORMAL) Basic Metabolic Panel (12/31/2021 4:25 AM INSIDE WIREMAN) P athologist Signature Potassium, S 4.4 3.6 - 5.2 12/31/2021 DTL mmol/L 5:35 AM INSIDE WIREMAN Sodium, S 134 (L) 135 - 145 12/31/2021 DTL mmol/L 5:35 AM INSIDE WIREMAN Chloride, S 103 98 - 107 12/31/2021 DTL mmol/L 5:35 AM INSIDE WIREMAN Bicarbonate, S 22 22 - 29 12/31/2021 DTL mmol/L 5:35 AM INSIDE WIREMAN Anion Gap 9 7 - 15 12/31/2021 DTL 5:35 AM INSIDE WIREMAN BUN (Blood 21 6 - 21 12/31/2021 DTL Urea mg/dL 5:35 AM INSIDE WIREMAN Nitrogen), S Creatinine, S 0.74 0.59 - 12/31/2021 DTL 1.04 mg/dL 5:35 AM INSIDE WIREMAN eGFR-Non 90 >=60 12/31/2021 DTL Black/ mL/min/BSA 5:35 AM INSIDE WIREMAN [place] Comment: ----ADDITIONAL INFORMATION---- Estimated GFR calculated using the 2009 CKD_EPI creatinine equation. eGFR-Black/ >90 >=60 mL/min/BSA 2021 5:35 AM INSIDE WIREMAN DTL Comment: ----ADDITIONAL INFORMATION---- Estimated GFR calculated using the 2009 CKD_EPI creatinine equation. Calcium, Total, S 8.7 8.6 - 10.0 mg/dL 12/31/2021 5:35 AM INSIDE WIREMAN DTL Glucose, S 138 70 - 140 mg/dL 12/31/2021 5:35 AM INSIDE WIREMAN D TL Specimen Anatomical Collection Method Collection Time Receive d Time (Source) Location / / Volume Laterality Blood (Blood, 12/31/2021 4:25 AM 12/31/19 5:18 Venous) INSIDE WIREMAN AM INSIDE WIREMAN Dario Carrera M.D. LAB BLOOD ADD-ON Performing Organization Address City/State/ZIP Code Phon e Number [facility] - [address] [place], [place] [address] [address] [place] [address] [facility] [address] DX Shoulder Left 1 View (12/30/2021 3:41 PM INSIDE WIREMAN) Anatomical Region Laterality Modality Upper Extremity, Shoulder, Musculoskeletal RST LOS, Left Computed Radiography Musculoskeletal ARZ LOS, Muskuloskeletal FLA LOS Specimen (Source) Anatomical Collection Method Collection Time Re ceived Time Location / / Volume Laterality 12/30/2021 3:54 PM INSIDE WIREMAN Impressions 12/30/2021 3:59 PM INSIDE WIREMAN Postoperative changes of a left shoulder arthroplasty resection and placement of an antibiotic spacer. Negat lalo for postoperative purposes. Narrative 12/30/2021 3:59 PM INSIDE WIREMAN EXAM: ??DX SHOULDER LEFT 1 VIEW Procedure Note Timothy Resendiz M.D. - 12/30/2021Forma tting of this note might be different from the original. EXAM: DX SHOULDER LEFT 1 VIEW IMPRESSION: Postoperative changes of a left shoulder arthroplasty resection and placement of an antibiotic spacer. Negat lalo for postoperative purposes. Dario Carrera M.D. IMG DIAGNOSTIC IMAGING PROCE [facility] Surgical Pathology, Frozen Lab (12/30/2021 2:15 PM INSIDE WIREMAN) Component Value Ref Test Analysis Performed At [facility] Method Time Signature 01/01/2022 M[facility] 8:22 AM INSIDE WIREMAN Participated in Kelly Howard, 01/01/2022 M[facility] the D.O.-Pathology 8:22 AM INSIDE WIREMAN Interpretation Resident Report Solomon Marcum M.D. 01/01/2022 METH electronically 8:22 AM INSIDE WIREMAN signed by I verify that I have examined all relevant slides/materials for the specimen(s) and rendered or confirmed the diagnosis. Frozen A. ??Synovium, left shoulder, excision: ??Synovial tissue 01/01/2022 M[facility] Intraoperative with 8:22 AM INSIDE WIREMAN Report acute inflammation (>5 neutrophils/high power field). Signed by Solomon Marcum M.D. 12/31/2021 8:17 AM Gross Description A. ??Received fresh labeled left shoulder is a 1.4 x 0.9 x 01/01/2022 METH 0.4 cm aggregate of red and campbell fibrous tissue, which is 8:22 AM INSIDE WIREMAN soft. ??All submitted for frozen and permanent sections. Grossed by Nkiki Gallardo. Block Summary A Left shoulder 01/01/2022 METH A1 Left shoulder-frozen 8:22 AM INSIDE WIREMAN Interpretation FINAL DIAGNOSIS 01/01/2022 METH 8:22 AM INSIDE WIREMAN A. ??Synovium, left shoulder, excision: ??Synovial tissue with acute inflammation (>5 neutrophils/high power field). Specimen (Source) Anatomical Collection Method Collection Time Re ceived Time Location / / Volume Laterality Tissue (Shoulder, 12/30/2021 2:15 PM Left) INSIDE WIREMAN Narrative This result has an attachment that is no t available. Cyrus Polk M.D. LAB SURG PATH ORDERABLES Performing Organization Address City/State/ZIP Code Phon e Number [facility] - [address] [place], [place] [address] [address] [place] [address] [facility] [address] Bacteria Cult, Aerobe / Anaerobe+Susc (12/30/2021 2:11 PM INSIDE WIREMAN) [facility] gist Method Time Signature Bacteria Cult, No growth 01/13/2022 DTL Aerobe/Anaerob after 14 4:02 PM INSIDE WIREMAN e+Susc days of incubation. Specimen Anatomical Collection Method Collection Time Receive d Time (Source) Location / / Volume Laterality Shoulder, Left 12/30/2021 2:11 PM 02/02/2 022 3:38 INSIDE WIREMAN PM INSIDE WIREMAN Comment: Specimen Source Site: Tissue #4 Narrative [facility] - 01/13/2022 4:02 PM INSIDE WIREMAN Bacterial Culture: Placed in Bactec aero bic and Bactec anaerobic bottles Cyrus Polk M.D. LAB MICROBIOLOGY - GENERAL O RDERABLES Performing Organization Address City/State/ZIP Code Phon e Number [facility] - [address] [place] [address] [address] [place] [address] [facility] [address] (ABNORMAL) Bacteria Cult, Aerobe / Anaerobe+Susc (12/30/2021 2:05 PM INSIDE WIREMAN) Component Value Ref Test Analysis Performed At [facility] Range Method Time Signature Bacteria STAPHYLOCOCCUS EPIDERMIDIS 01/11/2022 DT L Cult, Growth after 4 days 7:55 AM INSIDE WIREMAN Aerobe/Anaero (A) be+Susc Comment: Semi-Urgent Result. Semi-Urgent This is a semi-urgent result [facility] - ([facility]) [facility] Specimen Anatomical Collection Method Collection Time Receive d Time (Source) Location / / Volume Laterality Synovial Fluid, 12/30/2021 2:05 PM 2021 3:17 Left Shoulder INSIDE WIREMAN PM INSIDE WIREMAN Comment: Specimen Source Site: Fluid Narrative [facility] - 01/11/2022 7:55 AM INSIDE WIREMAN Bacterial Culture: Placed in Bactec aero bic and Bactec anaerobic bottles Organism Antibiotic Method Susceptibility Staphylococcus epidermidis Oxacillin SUSCEPTIBILITY, SANDRA < =0.06 mcg/mL: Susceptible (MCG/ML) Comment: Use oxacillin interpretation to predict results for anti-staphylococcal beta-lac chen antibiotics (except ceftaroline). Staphylococcus Vancomycin SUSCEPTIBILITY, SANDRA 2 mcg/mL: Ortiz sceptible epidermidis (MCG/ML) Staphylococcus Clindamycin SUSCEPTIBILITY, SANDRA >2 mcg/mL: R esistant epidermidis (MCG/ML) Staphylococcus Levofloxacin SUSCEPTIBILITY, SANDRA >4 mcg/mL: R esistant epidermidis (MCG/ML) Comment: Fluoroquinolones have a limi mary role in treatment of staphylococcal infections; c onsult Infectious Diseases if considering usage. Staphylococcus Trimethoprim + SUSCEPTIBILITY, SANDRA >2/38 mcg/mL : epidermidis Sulfamethoxazole (MCG/ML) Resistant Staphylococcus Minocycline SUSCEPTIBILITY, SANDRA <=4 mcg/mL: epidermidis (MCG/ML) Susceptible Staphylococcus Linezolid SUSCEPTIBILITY, SANDRA <=2 mcg/mL: epidermidis (MCG/ML) Susceptible Staphylococcus Rifampin SUSCEPTIBILITY, SANDRA <=0.5 mcg/mL : epidermidis (MCG/ML) Susceptible Comment: Rifampin should not be used as monotherapy Staphylococcus Doxycycline SUSCEPTIBILITY, SANDRA <=4 mcg/mL: epidermidis (MCG/ML) Susceptible Staphylococcus Daptomycin SUSCEPTIBILITY, BP 0.5 mcg/mL: epidermidis (MCG/ML) Susceptible Cyrus Polk M.D. LAB MICROBIOLOGY - GENERAL O MARY Performing Organization Address City/[facility] Phon e Number [facility] - [address] [place], [place] [address] [place] [id number] [place] [address] Bacteria Cult, Aerobe / Anaerobe+Susc (12/30/2021 2:04 PM INSIDE WIREMAN) [facility] Method Time Signature Bacteria Cult, No growth 01/13/2022 DTL Aerobe/Anaerob after 14 4:02 PM INSIDE WIREMAN e+Susc days of incubation. Specimen Anatomical Collection Method Collection Time Receive d Time (Source) Location / / Volume Laterality Shoulder, Left 12/30/2021 2:04 PM 022 3:34 INSIDE WIREMAN PM INSIDE WIREMAN Comment: Specimen Source Site: Tissue #3 Narrative [facility] - [facility] - 01/13/2022 4:02 PM INSIDE WIREMAN Bacterial Culture: Placed in Bactec aero bic and Bactec anaerobic bottles Cyrus Polk M.D. LAB MICROBIOLOGY - GENERAL Lebron HERNANDEZ Performing Organization Address City/[facility] Phon e Number [facility] - [address] [place], [place] [address] [address] [place], [place] [id number] [place] [address] Bacteria Cult, Aerobe / Anaerobe+Susc (12/30/2021 2:03 PM INSIDE WIREMAN) [facility] Method Time Signature Bacteria Cult, No growth 01/13/2022 DTL Aerobe/Anaerob after 14 4:02 PM INSIDE WIREMAN e+Susc days of incubation. Specimen Anatomical Collection Method Collection Time Receive d Time (Source) Location / / Volume Laterality Shoulder, Left 12/30/2021 2:03 PM 022 3:37 INSIDE WIREMAN PM INSIDE WIREMAN Comment: Specimen Source Site: Tissue #2 Narrative [facility] - 01/13/2022 4:02 PM INSIDE WIREMAN Bacterial Culture: Placed in Bactec aero bic and Bactec anaerobic bottles Cyrus Polk M.D. LAB MICROBIOLOGY - GENERAL O MARY Performing Organization Address [facility]/ZIP [facility] Phon e Number [facility] - [phone] [place] [address] Bacteria Cult, Aerobe / Anaerobe+Susc (12/30/2021 2:03 PM INSIDE WIREMAN) [facility] Method Time Signature Bacteria Cult, No growth 01/13/2022 DT Aerobe/Anaerob after 14 4:02 PM INSIDE WIREMAN e+Susc days of incubation. Specimen Anatomical Collection Method Collection Time Receive d Time (Source) Location / / Volume Laterality Shoulder, Left 12/30/2021 2:03 PM 022 3:31 INSIDE WIREMAN PM INSIDE WIREMAN Comment: Specimen Source Site: Tissue #1 Narrative [facility] - 01/13/2022 4:02 PM INSIDE WIREMAN Bacterial Culture: Placed in Bactec aero bic and Bactec anaerobic bottles Cyrus Polk M.D. LAB MICROBIOLOGY - GENERAL O MARY Performing Organization Address [facility] Phon e Number [facility] - [address] [place] [id number] documented in this encounter Visit Diagnoses Diagnosis Direct Infection Of Left Shoulder In Inf ectious And Parasitic Diseases Classified Elsewhere (HCC) - Primary Shoulder Joint Disorder Left Pain Shoulder Left Shoulder Joint Disorder Left documented in this encounter Admitting Diagnoses Diagnosis Direct Infection Of Left Shoulder In Inf ectious And Parasitic Diseases Classified Elsewhere (HCC) Pain Shoulder Left documented in this encounter Administered Medications Inactive Administered Medications - up to 3 most recent administrations Medication Order MAR Action Action Date Dose Rate Site acetaminophen tablet 1,000 mg Given 01/01/2022 11:36 AM INSIDE WIREMAN 1,00 0 mg (TYLENOL) 1,000 mg, oral, Every 6 hours, First dose on Tue12/30/21 at 1800 Given 01/01/2022 6:28 AM INSIDE WIREMAN 1,000 mg Given 12/31/2021 11:51 PM INSIDE WIREMAN 1,000 mg albuterol nebulizer solution 2.5 mg Given 12/31/2021 4:44 PM INSIDE WIREMAN 2.5 mg 2.5 mg, nebulization, Every 6 hours PRN, wheezing, Starting on Tue12/30/21 at 1711, Albuterol nebs were interchanged for albuterol/levalbuterol MDI (same frequency) atorvastatin tablet 80 mg (LIPITOR) Given 12/31/2021 8:57 PM INSIDE WIREMAN 80 mg 80 mg, oral, Daily at bedtime, First dose on Tue12/30/21 at 2100 Given 12/30/2021 9:55 PM INSIDE WIREMAN 80 mg benzonatate capsule 100 mg (TESSALON PER LES) Given 01/01/2022 3:10 AM INSIDE WIREMAN 100 mg 100 mg, oral, 3 times daily PRN, cough, Starting on Tue12/31/21 at 1702, Swallow whole. Do NOT crush, chew or open capsule. Given 12/31/2021 5:39 PM INSIDE WIREMAN 100 mg bupivacaine PF 0.2 % 550 mL in NaCl New Bag 01/01/2022 3:15 PM INSIDE WIREMAN 6 mL/hr 6 mL/hr 0.9% On-Q pain pump (CB004) 6 mL/hr, nerve catheter, Continuous, Starting on Tue01/01/22 at 1500, PACU & Post-Op, Location: Nerve Catheter Location, Nerve Catheter Location: Interscalene, Device: On-Q Pump bupivacaine PF 0.2 % in Rate/Dose Verify 01/01/2022 1:00 AM INSIDE WIREMAN 6 mL/ hr 6 mL/hr NaCl 0.9% 341 mL infusion (MARCAINE) 6 mL/hr, nerve catheter, Continuous, Starting on Tue12/30/21 at 1600, PACU & Post-Op, Nerve Catheter Location: Interscalene, Device: Hospital Infusion Pump Rate/Dose Verify 12/31/2021 12:11 AM INSIDE WIREMAN 6 mL/hr 6 mL/hr New Bag 12/30/2021 3:49 PM INSIDE WIREMAN 6 mL/hr 6 mL/hr buPROPion XL 24 hr tablet 150 mg (WELLBUTRIN Given 02/2022 8:35 AM INSIDE WIREMAN 150 mg XL) 150 mg, oral, Every morning, First dose on Tue12/31/21 at 0900, Swallow whole. Do NOT crush, chew, or split tablet. Given 12/31/2021 8:16 AM INSIDE WIREMAN 150 mg calcium carbonate chewable tablet Given 12/31/2021 11: 46 PM INSIDE WIREMAN 400 mg of calcium 400 mg of calcium (TUMS) 400 mg of calcium, oral, Every 2 hour PRN, indigestion, Starting on Tue12/30/21 at 1711, Doses listed are in mg of elemental calcium. Take with food. 500 mg calcium carbonate contains 200 mg of elemental calcium. Given 12/31/2021 9:15 PM INSIDE WIREMAN 400 mg of calcium carboxymethylcellulose 0.5 % ophthalmic Given 01/01/2022 1:15 AM INSIDE WIREMAN 2 drops solution 2 drop (REFRESH PLUS) 2 drop, both eyes, 4 times daily PRN, dry eyes, Starting on Tue12/30/21 at 1711 Given 12/31/2021 12:31 PM INSIDE WIREMAN 2 drops Given 12/31/2021 12:23 AM INSIDE WIREMAN 2 drops cefTRIAXone in dextrose (iso-osm) IVPB New Bag 01/01/2022 2:38 PM INSIDE WIREMAN 2 g 200 mL/hr 2 g (ROCEPHIN) 2 g, intravenous, at 200 mL/hr, Administer over 15 Minutes, Daily before lunch, First dose on Tue01/01/22 at 1345, Drug Monitoring Program: Pharmacist to adjust medication dosing based on indication and drug clearance factors., Indications: Bone and/or joint infection cetirizine tablet 10 mg (ZyrTEC) Given 01/01/2022 8:35 AM INSIDE WIREMAN 10 mg 10 mg, oral, 2 times daily, First dose on Tue12/30/21 at 2100, Drug Monitoring Program: Pharmacist to adjust medication dosing based on indication and drug clearance factors. Given 12/31/2021 8:57 PM INSIDE WIREMAN 10 mg Given 12/31/2021 8:16 AM INSIDE WIREMAN 10 mg cholecalciferol (vitamin D3) tablet 25 m cg Given 01/01/2022 8:35 AM INSIDE WIREMAN 25 mcg 25 mcg, oral, Daily, First dose on Tue12/31/21 at 0900, cholecalciferol (vitamin D3) orderable was interchanged for cholecalciferol (vitamin D3) tablet/capsule Given 12/31/2021 8:16 AM INSIDE WIREMAN 25 mcg D5W infusion 10-250 mL/hr, intravenous, As needed, Medications Inco mpatible with 0.9% NaCL, Starting on Tue01/01/22 at 1202, Infuse at the same rat e as the piggyback until tubing clears or up to a volume of 20 mL pre and post infusion for medications incompatible with 0.9% NaCL. Use 100 mL bag then disca rd. diazePAM tablet 5 mg (VALIUM) Given 12/31/2021 12:31 PM INSIDE WIREMAN 5 mg 5 mg, oral, 4 times daily PRN, muscle spasms, Starting on Tue12/30/21 at 2243 Given 12/31/2021 1:59 AM INSIDE WIREMAN 5 mg diphenhydrAMINE capsule 25 mg (BENADRYL) 25 mg, oral, Daily PRN, itching, Starting on Tue 2 at 0854 diphenhydrAMINE capsule 75 mg (BENADRYL) Given 01/01/2022 8:49 AM INSIDE WIREMAN 75 mg 75 mg, oral, Bedtime PRN, sleep, Starting on Tue12/30/21 at 1715 FLUoxetine capsule 80 mg (PROzac) Given 01/01/2022 8:34 AM INSIDE WIREMAN 80 mg 80 mg, oral, Daily, First dose on Tue12/31/21 at 0900, FLUoxetine orderable was interchanged for FLUoxetine tablet/capsule Given 12/31/2021 8:16 AM INSIDE WIREMAN 80 mg fluticasone furoate 100 mcg/actuation Given 01/01/2022 8:[address] 2 puffs inhaler 2 puff (ARNUITY ELLIPTA) 2 puff, inhalation, 2 times daily, First dose on Tue12/30/21 at 2100, fluticasone furoate 100 mcg was interchanged for fluticasone MDI 110 mcg Given 12/31/2021 9:04 PM INSIDE WIREMAN 2 puffs Given 12/31/2021 8:17 AM INSIDE WIREMAN 2 puffs gentamicin powder (for bone Given 12/30/2021 2:40 PM INSIDE WIREMAN 4 vials Left Shoulder cement) As needed, Starting on Tue12/30/21 at 1440, Intra-Op heparin PF flush syringe 50-150 Units 50-150 Units, intravenous, Once as neede d, line care, 50 units (5 mL) to each lumen of non-valved catheters only, Starting on Tue01/01/22 a t 0817, For 1 dose HYDROmorphone (PF) injection 0.4 mg Given 01/01/2022 4:56 AM INSIDE WIREMAN 0.4 mg (DILAUDID) 0.4 mg, intravenous, Every 2 hour PRN, severe pain or score 7-10 of 10, Starting on Tue12/30/21 at 1711, For 5 doses, May administer if pain is greater than 7 after scheduled and PRN regimen exhausted. If pain remains greater than 7, notify primary service. Given 12/31/2021 11:35 AM INSIDE WIREMAN 0.4 mg Given 12/31/2021 4:14 AM INSIDE WIREMAN 0.4 mg ipratropium-albuteroL 0.5-2.5 mg/3 mL nebulizer Given 01/01/2022 3:15 AM INSIDE WIREMAN 3 mL solution 3 mL (DUONEB) 3 mL, nebulization, 4 times daily PRN, shortness of breath, wheezing, Starting on Tue12/30/21 at 1711 lactated ringers Rate/Dose Change 01/01/2022 1:00 AM INSIDE WIREMAN 20 mL/hr 20 mL/hr 75 mL/hr, intravenous, Continuous, Starting on Tue12/30/21 at 1715, Until patient has 500cc po intake New Bag 12/31/2021 11:46 PM INSIDE WIREMAN 75 mL/hr 75 mL/hr Rate/Dose Change 12/31/2021 3:55 AM INSIDE WIREMAN 20 mL/hr 20 mL/hr lactated ringers Continued from OR 12/30/2021 4:00 PM INSIDE WIREMAN 75 mL/hr 75 mL/hr 75 mL/hr, intravenous, Continuous, Starting on Tue12/30/21 at 1600, PACU & Post-Op lamoTRIgine tablet 200 mg (LaMICtaL) Given 01/01/2022 8:34 AM INSIDE WIREMAN 200 mg 200 mg, oral, 2 times daily, First dose on Tue12/30/21 at 2100 Given 12/31/2021 8:56 PM INSIDE WIREMAN 200 mg Given 12/31/2021 8:16 AM INSIDE WIREMAN 200 mg methylene blue 0.5 % (5 mg/mL) Given 12/30/2021 2:39 PM INSIDE WIREMAN 2 mL Left Shoulder injection As needed, Starting on Tue12/30/21 at 1439, Intra-Op NaCl 0.9% infusion 10-250 mL/hr, intravenous, As needed, Be tween Consecutive Piggyback Medications, Starting on Tue01/01/22 at 1202, Infuse at the same rat e as the piggyback until tubing clears or up to a volume of 20 mL . Select for IV medication administration when no maintenance IV available or when IV medication s are not compatible with maintenance fluid. NaCl 0.9% infusion 10-250 mL/hr, intravenous, As needed, Post Medications (Hazardous/Low Fluid Volume), Starting on Tue01/01/22 at 1202, Infuse at the same rate as the medication until tubing cleared of medication, then discard. oxyCODONE IR tablet 10 mg (ROXICODONE) Given 01/01/2022 2:38 PM INSIDE WIREMAN 10 mg 10 mg, oral, Every 3 hours PRN, severe pain or score 7-10 of 10, Starting on Tue12/31/21 at 1745 Given 01/01/2022 11:35 AM INSIDE WIREMAN 10 mg Given 01/01/2022 7:07 AM INSIDE WIREMAN 10 mg oxyCODONE IR tablet 5 mg (ROXICODONE) 5 mg, oral, Every 3 hours PRN, moderate pain or score 4-6 of 10, Starting on Tue12/31/21 at 1745, If patient is >75 consider changing to 2.5-5mg scale pantoprazole DR tablet 40 mg (PROTONIX) Given 01/01/2022 3:46 PM INSIDE WIREMAN 40 mg 40 mg, oral, 2 times daily before breakfast and dinner, First dose on Tue12/31/21 at 0700, pantoprazole 40 mg oral twice daily was interchanged for esomeprazole 20 or 40 mg oral twice daily Swallow whole. Do NOT crush, chew, or split tablet. Given 01/01/2022 6:29 AM INSIDE WIREMAN 40 mg Given 12/31/2021 4:47 PM INSIDE WIREMAN 40 mg pregabalin capsule 600 mg (LYRICA) Given 01/01/2022 8:34 AM INSIDE WIREMAN 600 mg 600 mg, oral, 2 times daily, First dose on Tue12/30/21 at 2100 Given 12/31/2021 8:56 PM INSIDE WIREMAN 600 mg Given 12/31/2021 8:15 AM INSIDE WIREMAN 600 mg QUEtiapine tablet 50 mg (SEROquel) Given 12/31/2021 8:57 PM INSIDE WIREMAN 50 mg 50 mg, oral, Daily at bedtime, First dose on Tue12/30/21 at 2100 Given 12/30/2021 9:55 PM INSIDE WIREMAN 50 mg sennosides-docusate sodium 8.6-50 mg per Given 01/01/2022 8:35 A M INSIDE WIREMAN 1 tablet tablet 1 tablet (SENOKOT-S) 1 tablet, oral, 2 times daily, First dose on Tue12/30/21 at 2100, Do not give if patient has diarrhea. Given 12/31/2021 8:57 PM INSIDE WIREMAN 1 tablet Given 12/31/2021 8:16 AM INSIDE WIREMAN 1 tablet sodium chloride 0.9 % injection 10-30 mL 10-30 mL, intravenous, As needed, line c are, Peripherally Inserted Central Catheter (PICC) Valved, Starting on Tue01/01/22 at 1202, Prior t o and following infusion, between multiple consecutive infusions, prior to and following blood sampling, post blood transfusion. sodium chloride 0.9 % injection 10-30 mL 10-30 mL, intravenous, Every 7 days, Fir st dose on Tue01/01/22 at 1215, Peripherally Inserted Central Catheter (PICC) Valved: When no infusion to maintain patency flush 10 mL per lumen. sodium chloride 0.9 % injection 3 mL Given 12/31/2021 8:18 AM INSIDE WIREMAN 3 mL 3 mL, intravenous, Every 12 hours scheduled, First dose on Tue12/30/21 at 2100, PACU & Post-Op, Peripheral Intravenous Catheter and Rapid Infusion Catheter, when no infusion to maintain patency Given 12/30/2021 9:53 PM INSIDE WIREMAN 3 mL vancomycin powder Given 12/30/2021 2:40 PM INSIDE WIREMAN 4 g Left Shoulder As needed, Starting on Tue12/30/21 at 1440, Intra-Op zonisamide capsule 300 mg (ZONEGRAN) Given 01/01/2022 8:35 AM INSIDE WIREMAN 300 mg 300 mg, oral, 2 times daily, First dose on Tue12/30/21 at 2100, Swallow whole. Do NOT crush, chew or open capsule. Given 12/31/2021 8:57 PM INSIDE WIREMAN 300 mg Given 12/31/2021 8:16 AM INSIDE WIREMAN 300 mg documented in this encounter Active and Recently Administered Medications Times are shown in INSIDE WIREMAN. Scheduled Medication Order 12/30/2021 12/31/2021 01/01/2022 acetaminophen tablet 1,000 mg (TYLENOL) (COMPLETED) 12 (Given - Provider: Manda Barnett R.N.) 1,000 mg, oral, Once, On Tue12/30/21 at 1215, For 1 dose, Pre-Op acetaminophen tablet 1,000 mg (TYLENOL) 1828 (Given - Provider: Ezequiel Hernandez R.N.) 0007 (Given - Provider: Viktoriya Givens R.N.)0619 (Given - Provider: Viktoriya Givens R.N.)1135 (Given - Provider: Maci Gonzalez R.N.)1738 (Given - Provider: Fanny Sifuentes R.N.)2351 (Given - Provider: Leticia Pérez, R.N.) 0628 (Given - Provider: Viktoriya Givens R.N.)1136 (Given - Provider: Corrie Toscano R.N.) 1,000 mg, oral, Every 6 hours, First dose on Tue12/30/21 at 1800 atorvastatin tablet 80 mg (LIPITOR) 2155 (Given - Prov ider: Ezequiel Hernandez R.N.) 2057 (Given - Provider: Fanny Sifuentes R.N.) 80 mg, oral, Daily at bedtime, First dose on Tue12/30/21 at 2100 buPROPion XL 24 hr tablet 150 mg (WELLBUTRIN XL) 0816 (Given - Provider: Maci Gonzalez R.N.) 0835 (Given - Provider: Corrie fall RBrittonNBritton) 150 mg, oral, Every morning, First dose on Tue12/31/21 at 0900, Swallow whole. Do NOT crush, chew, or split tablet. ceFAZolin in dextrose (iso-os) IVPB 2 g (ANCEF) (CANCE LED) 2154 (New Bag - Provider: Ezequiel Hernandez R.N.) 0636 (New Bag - Provider: Viktoriya Givens R.N.)1421 (New Bag - Provider: Maci Gonzalez R.N.)2232 (New Bag - Provider: Christiano KeenBrittonNBritton) 0627 (New Bag - Provider: Viktoriya dorado RBrittonNBritton) 2 g, intravenous, at 200 mL/hr, Administ er over 30 Minutes, Every 8 hours, First dose on Tue12/30/21 at 2200, Start within 8 hours of last IV dose., Drug Monitoring Program: Pharmacist to adjust medicati on dosing based on indication and drug c learance factors., Indications: Bone and/or joint infection ceFAZolin injection 2,000 mg (ANCEF) (COMPLETED) 1419 (Given - Provider: Emre Rodriguez APRN, ACCOUNT SUPPORT SPECIALIST) 2,000 mg (rounded from 1,747.5 mg = 25 m g/kg ? 69.9 kg Dosing weight), intravenous, Once, On Tue12/30/21 at 1130, For 1 dose, Intra-Op, Preoperatively within 1 hour prior to surgical incision If needed, reconstitute vial per package insert in structions. See IVAG for administration guidelines. , Drug Monitoring Program: Pharmacist to adjust medication dosing based on indication and drug clearance factors., Indications: Prophylaxis, surgical cefTRIAXone in dextrose (iso-osm) IVPB 2 g (ROCEPHIN) 1438 (New Bag - Provider: Corrie Toscano R.N.) 2 g, intravenous, at 200 mL/hr, Administ er over 15 Minutes, Daily before lunch, First dose on Tue01/01/22 at 1345, Drug Monitoring Program: Pharmacist to adjust medication dosing based on indication and drug clearance factors., Indications: Bone and/or joint infectio n cetirizine tablet 10 mg (ZyrTEC) 2152 (Given - Provide r: Ezequiel Hernandez R.N.) 0816 (Given - Provider: Maci Gonzalez R.N.)2056 (Given - Provider: Fanny Sifuentes RBrittonNBritton) 0835 (Given - Provider: Corrie fall RBrittonNBritton) 10 mg, oral, 2 times daily, First dose o n Tue12/30/21 at 2100, Drug Monitoring Program: Pharmacist to adjust medication dosing based on indication and drug clearance factors. cholecalciferol (vitamin D3) tablet 25 mcg 0816 (Given - Provider: Maci J Gonzalez, R.N.) 0835 (Given - Provider: Corrie fall RBrittonNBritton) 25 mcg, oral, Daily, First dose on Tue at 0900, cholecalciferol (vitamin D3) orderable was interchanged for cholecalciferol (vitamin D3) tablet/capsule FLUoxetine capsule 80 mg (PROzac) 0816 ( Given - Provider: Maci Gonzalez R.N.) 0834 (Given - Provider: Corrie fall R.N.) 80 mg, oral, Daily, First dose on 02/16 at 0900, FLUoxetine orderable was interchanged for FLUoxetine tablet/capsule fluticasone furoate 100 mcg/actuation inhaler 2 puff ( ARNUITY ELLIPTA) 2155 (Given - Provider: Ezequiel Hernandez R.N.) 08 (Given - Provider: Maci Gonzalez R.N.)2103 (Given - Provider: Fanny Sifuentes R.N.) 0836 (Given - Provider: Corrie Toscano R.N.) 2 puff, inhalation, 2 times daily, First dose on Tue12/30/21 at 2100, fluticasone furoate 100 mcg was interchanged for fluticasone MDI 110 mcg ketamine injection 10 mg (KETALAR) (COMPLETED) 1238 (Geronimo iven - Provider: Manda Barnett R.N.) 10 mg, intravenous, Once, On Tue12/30/21 at 1300, For 1 dose, Pre -Op lamoTRIgine tablet 200 mg (LaMICtaL) 2154 (Given - Pro vider: Ezequiel Hernandez R.N.) 08 (Given - Provider: Maci Gonzalez R.N.)2055 (Given - Provider: Fanny Sifuentes R.N.) 0834 (Given - Provider: Corrie fall R.N.) 200 mg, oral, 2 times daily, First dose on Tue12/30/21 at 2100 lidocaine 10 mg/mL (1 %) injection 0-10 mL (XYLOCAINE) 0830 (Due) 0-10 mL, intradermal, Once, On Tue 2 at 0830, For 1 dose, Administer intradermally prior to PICC placement. Patient 18 years and older - 1 mL (may repeat twice up to 1 mL each PICC insertion attemp t if patient complains or pain or discomfort at injection site. oxyCODONE 12 hr tablet 20 mg (OxyCONTIN) (COMPLETED) 1 235 (Given - Provider: Manda Barnett R.N.) 20 mg, oral, Once, On Tue12/30/21 at 1300 , For 1 dose, Pre-Op, Swallow whole. Do NOT crush, chew, or split tablet. pantoprazole DR tablet 40 mg (PROTONIX) 0636 (Given - Provider: Viktoriya Givens R.N.)1647 (Given - Provider: Fanny Sifuentes R.N.) 0629 (Given - Provider: Viktoriya Givens R.N.)1546 (Given - Provider: Fanny Sifuentes R.N.) 40 mg, oral, 2 times daily before breakf ast and dinner, First dose on Tue12/31/21 at 0700, pantoprazole 40 mg oral twice daily was interchanged for esomeprazole 20 or 40 mg oral twice daily Swallow whole. Do NOT crush, chew, or split tablet. pregabalin capsule 600 mg (LYRICA) 2154 (Given - Provi marquis: Ezequiel Hernandez R.N.) 0815 (Given - Provider: Maci Gonzalez R.N.)2055 (Given - Provider: Fanny Sifuentes R.N.) 08 (Given - Provider: Corrie fall RBrittonNBritton) 600 mg, oral, 2 times daily, First dose on Tue12/30/21 at 2100 QUEtiapine tablet 50 mg (SEROquel) 2154 (Given - Provi marquis: Ezequiel Hernandez R.N.) 2056 (Given - Provider: Fanny Sifuentes R.N.) 50 mg, oral, Daily at bedtime, First dose on Tue12/30/21 at 2100 sennosides-docusate sodium 8.6-50 mg per tablet 1 tabl et (SENOKOT-S) 2154 (Given - Provider: Ezequiel Hernandez R.N.) 0816 (Given - Provider: Maci Gonzalez R.N.)2056 (Given - Provider: Fanny Sifuentes R.N.) 0835 (Given - Provider: Corrie Toscano RBrittonNBritton) 1 tablet, oral, 2 times daily, First dos e on Tue12/30/21 at 2100, Do not give if patient has diarrhea. sodium chloride 0.9 % injection 10-30 mL 0830 (Due) 10-30 mL, intravenous, Once, On Tue at 0830, For 1 dose, 10 mL flush to each lumen sodium chloride 0.9 % injection 10-30 mL 1215 (Due) 10-30 mL, intravenous, Every 7 days, Fir st dose on Tue01/01/22 at 1215, Peripherally Inserted Central Catheter (PICC) Valved: When no infusion to maintain patency flush 10 mL per lumen. sodium chloride 0.9 % injection 3 mL 215 (Given - Pro vider: Ezequiel Hernandez R.N.) 0818 (Given - Provider: Maci Gonzalez RBrittonNBritton)2104 (Not Given - Provider: Fanny Sifuentes R.N. - Reason: Other - Comment: iv fluid infusing) 0900 (Due) 3 mL, intravenous, Every 12 hours schedu led, First dose on Tue12/30/21 at 2100, PACU & Post-Op, Peripheral Intravenous Catheter and Rapid Infusion Catheter, when no infusion to maintain patency tranexamic acid in NaCl IVPB 1,000 mg (CYKLOKAPRON) (C OMPLETED) 1446 (Given - Provider: Emre Rodriguez APRN, GINETTE)1550 (Anesthesia Volume Adjustment - Provider: Emre Rodriguez APRN, GINETTE) 1,000 mg (1 g), intravenous, at 300 mL/h r, Administer over 20 Minutes, Once, On Tue12/30/21 at 1130, For 1 dose, Intra-Op, Administer in OR upon induction tranexamic acid in NaCl IVPB 1,000 mg (CYKLOKAPRON) (C OMPLETED) 1313 (Given - Provider: Emre Rodriguez APRN, GINETTE)1550 (Anesthesia Volume Adjustment - Provider: Emre Rodriguez APRN, GINETTE) 1,000 mg (1 g), intravenous, at 300 mL/h r, Administer over 20 Minutes, Once, On Tue12/30/21 at 1130, For 1 dose, Intra-Op, Administer in OR just before dropping tourniquet zonisamide capsule 300 mg (ZONEGRAN) 9892 (Given - Pro vider: Ezequiel Hernandez RBetsy) 0816 (Given - Provider: Sharifa PaizNBritton)2056 (Given - Provider: Fanny Sifuentes RBrittonNBritton) 0835 (Given - Provider: Corrie fall RBrittonNBritton) 300 mg, oral, 2 times daily, First dose on Tue12/30/21 at 2100, Swallow whole. Do NOT crush, chew or open capsule. Continuous Medication Order 12/30/2021 12/31/2021 01/01/2022 bupivacaine PF 0.2 % 550 mL in NaCl 0.9% On-Q pain pump (CB004) 1515 (New Bag - Provider: Elvira Duncan RBetsy) 6 mL/hr, nerve catheter, Continuous, Sta rting on Tue01/01/22 at 1500, PACU & Post-Op, Location: Nerve Catheter Location, Nerve Catheter Location: Interscalene, Device: On-Q Pump bupivacaine PF 0.2 % in NaCl 0.9% 341 mL infusion (LIZBET DRIVER) 1549 (New Bag - Provider: Conchita Carmen RBrittonNBritton) 0011 (Rate/Dose Verify - Provider: Kem Givens R.N.) 0100 (Rate/Dose Verify - Provider: Kem Givens R.N.) 6 mL/hr, nerve catheter, Continuous, Sta rting on Tue12/30/21 at 1600, PACU & Post-Op, Nerve Catheter Location: Interscalene, Device: Hospital Infusion Pump lactated ringers 1300 (Due) 20 mL/hr, intravenous, Continuous, Starting on Tue12/30/21 at 130 0, Pre-Op lactated ringers 1728 (Continued from OR - Pr ovider: Ezequiel Hernandez R.N.)1841 (New Bag - Provider: Ezequiel Hernandez R.N.) 0011 (Rate/Dose Verify - Provider: Viktoriya Givens R.N.)0355 (Rate/Dose Change - Provider: Viktoriya Givens R.N. - Comment: oral intake >500cc)234 (New Bag - Provider: Carole Pérez.S.NBritton, R.N.) 0100 (Rate/Dose Change - Provider: Kem Givens R.N. - Comment: adequate oral intake) 75 mL/hr, intravenous, Continuous, Start ing on Tue12/30/21 at 1715, Until patient has 500cc po intake lactated ringers 1600 (Continued from OR - Provider: Adam Carmen R.N.) 75 mL/hr, intravenous, Continuous, Start ing on Tue12/30/21 at 1600, PACU & Post-Op PRN Medication Order 12/30/2021 12/31/2021 01/01/2022 albuterol nebulizer solution 2.5 mg 1644 (Given - Provider: Fanny Sifuentes R.N.) 2.5 mg, nebulization, Every 6 hours PRN, wheezing, Starting on Tue12/30/21 at 1711, Albuterol nebs were interchanged for albuterol/levalbuterol MDI (same frequency) benzocaine-menthoL 15-3.6 mg per lozenge 1 lozenge (CEPACOL) 1 lozenge, oral, As needed, sore throat, Starting on Tue12/30/21 at 1711 benzonatate capsule 100 mg (TESSALON PERLSHAHZAD) 1739 (Given - Provider: Fanny Sifuentes R.N.) 0310 (Given - Provider: Viktoriya Givens R.N.) 100 mg, oral, 3 times daily PRN, cough, Starting on Clementine 12/31/21 at 1702, Swallow whole. Do NOT crush, chew or open capsule. bisacodyL suppository 10 mg (DULCOLAX) 10 mg, rectal, Daily PRN, constipation, Starting on Tue12/30/21 at 1711, Ordered sequence of administration: polyethylene glycol, then bisacodyl until BM achieved. calcium carbonate chewable tablet 400 mg of calcium (TUMS) 2114 (Given - Provider: Fanny Sifuentes R.N.)234 (Given - Provider: Carole Pérez.S.N., R.N.) 400 mg of calcium, oral, Every 2 hour TN N, indigestion, Starting on Tue12/30/21 at 1711, Doses listed are in mg of elemental calcium. Take with food. 500 mg calcium carbonate contains 200 mg of elemental calcium. carboxymethylcellulose 0.5 % ophthalmic solution 2 drop (REF RESH PLUS) 0023 (Given - Provider: Viktoriya Givens R.N.)1231 (Given - Provider: Maci Gonzalez R.N.) 0115 (Given - Provider: Viktoriya Givens R.N.) 2 drop, both eyes, 4 times daily PRN, dry eyes, Starting on Tue12/30/21 at 1711 D5W infusion 10-250 mL/hr, intravenous, As needed, Me dications Incompatible with 0.9% NaCL, Starting on Tue01/01/22 at 1202, Infuse at the same rate as the piggyback until tubing clears or up to a volume of 20 mL pre and post infusion for medications incom patible with 0.9% NaCL. Use 100 mL bag then discard. dexAMETHasone injection 4 mg (DECADRON) 4 mg, intravenous, Once as needed, nause a, vomiting, Starting on Tue12/30/21 at 1711, For 1 dose, Give only if NOT given during the pre or intraoperative period. If ondansetron ordered, give dexamethasone with first dose of ondansetron. diazePAM tablet 5 mg (VALIUM) 0159 (Give n - Provider: Viktoriya Givens R.N.)1231 (Given - Provider: Maci Gonzalez R.N.) 5 mg, oral, 4 times daily PRN, muscle spasms, Starting on 01/19 at 2243 diphenhydrAMINE capsule 25 mg (BENADRYL) 25 mg, oral, Daily PRN, itching, Starting on Tue01/01/22 at 0854 diphenhydrAMINE capsule 75 mg (BENADRYL) 0849 (Given - Provider: Corrie Toscano R.N. - Comment: for itching) 75 mg, oral, Bedtime PRN, sleep, Starting on Tue12/30/21 at 1715 gentamicin powder (for bone cement) (CANCELED) 1440 (G iven - Provider: Cyrus Polk M.D.) As needed, Starting on Tue12/30/21 at 1440, Intra-Op granisetron (PF) injection 1 mg (KYTRIL) (COMPLETED) 1 557 (Given - Provider: Conchita Carmen, R.NBritton) 1 mg, intravenous, Once as needed, nause a, vomiting, Starting on Tue12/30/21 at 1546, For 1 dose, PACU (only), If patient does not respond to ondansetron or haloperidol. (order of antiemetic administrati on - ondansetron then haloperidol then granisetron) haloperidol lactate injection 1 mg (HALDOL) (CANCELED) 1631 (Given - Provider: Conchita Carmen R.N.) 1 mg, intravenous, Every 6 hours PRN, na usea, vomiting, Starting on Tue12/30/21 at 1546, For 48 hours, PACU (only), Total of 3 doses in 24 hour period. RASS must be -2 or higher to administer. If nausea and vomiting persists, move to granister on. (order of antiemetic administration - ondansetron then haloperidol then granisetron) haloperidol lactate injection 1 mg (HALDOL) 1 mg, intravenous, Every 6 hours PRN, na usea, vomiting, Starting on Tue12/30/21 at 1711, For 48 hours, Total of 3 doses in 24 hour period. RASS must be -2 or higher to administer. Reassess for nausea or vomiting after at least 10 minutes. If n ausea or vomiting persists administer next ordered antiemetic medications (order for antiemetic medication administration ondansetron then haloperidol then promethazine) heparin PF flush syringe 50-150 Units 50-150 Units, intravenous, Once as neede d, line care, 50 units (5 mL) to each lumen of non-valved catheters only, Starting on Tue01/01/22 at 0817, For 1 dose HYDROmorphone (PF) injection 0.2 mg (DILAUDID) (CANCEL ED) 1555 (Given - Provider: Conchita Carmen, R.N.)1607 (Given - Provider: Christiano Darling.N.)1617 (Given - Provider: Conchita M Thaldorf, R.N.) 0.2 mg, intravenous, Every 5 min PRN, mo derate pain or score 4-6 of 10, severe pain or score 7-10 of 10, Starting on Tue12/30/21 at 1546, PACU (only), Up to maximum total dose of 2 mg HYDROmorphone (PF) injection 0.4 mg (DILAUDID) 0159 (Given - Provider: Viktoriya Givens R.N.)0414 (Given - Provider: Viktoriya Givens R.N.)1135 (Given - Provider: Maci Gonzalez R.N.) 0456 (Given - Provider: Viktoriya Givens R.N.) 0.4 mg, intravenous, Every 2 hour PRN, s evere pain or score 7-10 of 10, Starting on Tue12/30/21 at 1711, For 5 doses, May administer if pain is greater than 7 after scheduled and PRN regimen exhausted. I f pain remains greater than 7, notify primary service. ipratropium-albuteroL 0.5-2.5 mg/3 mL nebulizer solution 3 mL (D UONEB) 0315 (Given - Provider: Viktoriya Givens R.N.) 3 mL, nebulization, 4 times daily PRN, s hortness of breath, wheezing, Starting on Tue12/30/21 at 1711 meclizine tablet 25 mg (ANTIVERT) 25 mg, oral, Every 6 hours PRN, dizziness, Starting on Tue 2 at 1711 methylene blue 0.5 % (5 mg/mL) injection (CANCELED) 14 39 (Given - Provider: Cyrus Polk M.D. - Comment: Cement) As needed, Starting on Tue12/30/21 at 1439, Intra-Op midazolam (PF) injection 1 mg (VERSED) (CANCELED) 1238 (Given - Provider: Manda Barnett RBetsy) 1 mg, intravenous, Every 2 min PRN, moraima tion, RASS 0, Starting on Tue12/30/21 at 1201, Pre-Op, May repeat every 2 minutes for a maximum of 5 mg. Do not give if respiratory rate is less than 8 breaths/minute. NaCl 0.9% infusion 10-250 mL/hr, intravenous, As needed, Be tween Consecutive Piggyback Medications, Starting on Tue01/01/22 at 1202, Infuse at the same rate as the piggyback until tubing clears or up to a volume of 20 mL. Select for IV medication administration when no maintenance IV available or when IV medications are not compatible with maintenance fluid. NaCl 0.9% infusion 10-250 mL/hr, intravenous, As needed, Po st Medications (Hazardous/Low Fluid Volume), Starting on Tue01/01/22 at 1202, Infuse at the same rate as the medication until tubing cleared of medication, then discard. naloxone injection 0.2 mg (NARCAN) 0.2 mg, intravenous, As needed, respirat ory depression, Starting on Tue12/30/21 at 1711, For RASS Score -4 or less, respiratory rate of less than 8 breaths/min. Notify provider/service and rapid response team (if available at institution). ondansetron (PF) injection 4 mg (ZOFRAN) 0816 (Given - Provider: Maci Gonzalez R.N.) 0116 (Given - Provider: Viktoriya Givens R.N.) 4 mg, intravenous, Every 6 hours PRN, na usea, vomiting, Starting on Tue12/30/21 at 1711, For 48 hours, Reassess for nausea or vomiting after at least 10 minutes. If nausea or vomiting persists administer next ordered antiemetic medications (or marquis for antiemetic medication administration ondansetron then haloperidol then promethazine). oxyCODONE IR tablet 10 mg (ROXICODONE) (CANCELED) 1999 (Given - Provider: Ezequiel Hernandez RBrittonN.) 0022 (Given - Provider: Viktoriya Givens R.N.)0619 (Given - Provider: Viktoriya Givens R.N.)1043 (Given - Provider: Maci Gonzalez R.N.) 10 mg, oral, Every 4 hours PRN, severe p ain or score 7-10 of 10, Starting on Tue12/30/21 at 1536 oxyCODONE IR tablet 10 mg (ROXICODONE) (CANCELED) 1421 (Given - Provider: Maci Gonzalez R.N.) 10 mg, oral, Every 4 hours PRN, severe p ain or score 7-10 of 10, Starting on Clementine 12/31/21 at 1415 oxyCODONE IR tablet 10 mg (ROXICODONE)(Linked Group 1) 1739 (Given - Provider: Fanny Sifuentes R.N.)2053 (Given - Provider: Sharifa KeenNBritton)2351 (Given - Provider: Rafal Waller, M.S.N., R.N.) 0303 (Given - Provider: Viktoriya Givens R.N.)0707 (Given - Provider: Viktoriya Givens R.N.)1135 (Given - Provider: Corrie Toscano R.N.)1438 (Given - Provider: Corrie Toscano R.N.) 10 mg, oral, Every 3 hours PRN, severe p ain or score 7-10 of 10, Starting on Clementine 12/31/21 at 1745 oxyCODONE IR tablet 5 mg (ROXICODONE)(Linked Group 1) 1739 (See Alternative - Provider: Fanny Sifuentes R.N.)2053 (See Alternative - Provider: Sharifa KeenNBritton)235 (See Alternative - Provider: Rafal Waller, M.S.N., R.N.) 0303 (See Alternative - Provider: Viktoriya Givens R.N.)0707 (See Alternative - Provider: Viktoriya Givens R.N.)1135 (See Alternative - Provider: Sharifa CanasNBritton)1438 (See Alternative - Provider: Corrie Toscano R.N.) 5 mg, oral, Every 3 hours PRN, moderate pain or score 4-6 of 10, Starting on Clementine 12/31/21 at 1745, If patient is >75 consider changing to 2.5-5mg scale phenoL 1.4 % spray 5 spray (CHLORASEPTIC) 5 spray, mouth/throat, Every 2 hour PRN, sore throat, Starting on Tue12/30/21 at 1711, to mouth/throat polyethylene glycol powder packet 1 packet (MIRALAX) 1 packet, oral, Daily PRN, constipation, Starting on Tue12/30/21 at 1711, Ordered sequence of administration: polyethylene glycol, then bisacodyl until BM achieved. Avoid mixing with starch-based thickened liquids. promethazine injection 6.25 mg (PHENERGAN) 6.25 mg, intravenous, Every 6 hours PRN, nausea, vomiting, Starting on Tue12/30/21 at 1711, For 48 hours, RASS must be -2 or higher to administer. Reassess for nausea or vomiting after at least 10 minute s. If nausea or vomiting persists admini ster next ordered antiemetic medications (order for antiemetic medication administration ondansetron then haloperidol then promethazine) scopolamine base 1 mg over 3 days 1 patch (TRANSDERM S PILOT CAPTAIN) (CANCELED) 1202 (Medication Applied - Provider: Manda Barnett R.N.) 0110 (Medication Removed - Provider: Leticia Pérez, R.N. - Comment: per Patient Request) 1 patch, transdermal, Administer over 72 Hours, Once as needed, nausea and vomiting, Starting on Tue12/30/21 at 1201, For 1 dose, Pre-Op, Contains 1.5 mg to deliver 1 mg/72 hours. sodium chloride 0.9 % injection 10 mL 10 mL, intravenous, As needed, line care , Starting on Tue12/30/21 at 1545, PACU & Post-Op, Peripheral Intravenous Catheter and Rapid Infusion Catheter, prior to blood sampling, post blood transfusion or post blood sampling sodium chloride 0.9 % injection 10-30 mL 10-30 mL, intravenous, As needed, line c are, Peripherally Inserted Central Catheter (PICC) Valved, Starting on Tue01/01/22 at 1202, Prior to and following infusion, between multiple consecutive infusions , prior to and following blood sampling, post blood transfusion. sodium chloride 0.9 % injection 3 mL 3 mL, intravenous, As needed, line care, Starting on Tue12/30/21 at 1545, PACU & Post-Op, Prior to and following infusion and between multiple consecutive infusions: sodium chloride 0.9 % injection tiZANidine tablet 4 mg (ZANAFLEX) 4 mg, oral, Every 8 hours PRN, muscle spasms, Starting on 01/19 at 1711 vancomycin powder (CANCELED) 1440 (Given - Provider: Cyrus bales M.D.) As needed, Starting on 12/30/21 at 1440, Intra-Op Linked Groups Order Group 1: oxyCODONE IR tablet 5 mg (ROXICODONE)Jump to med 5 mg, oral, Every 3 hours PRN, moderate pain or score 4-6 of 10, Starting on Clementine 12/31/21 at 1745
If patient is >75 consider changing to 2.5-5mg scale
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
--- OUTSIDE RECORDS SUMMARY | 2022-07-06 14:50 | XMS_ITS | Encounter Summary ---
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 [address] [place] [phone] Referral ID Status Reason Start Date Expiration Date Visits V isits Requested Authorized [id number] Authorized 01/01/2022 01/01/2023 1 1 LOGY RN Encounter Details Date Type Department Care Team Description 12/30/2021 - Hospital Encounter [facility] Kulwant Polk M.D. [address] [place] [phone] Pain Shoulder Left (Primary Dx); 01/01/2022 Hospital, [facility] Kennedi Vera MPAS, P.A.-C. [address] [place] [phone] Shoulder Joint Disorder Left; Afshin Blasenberg Direct Inf ection Of Left Shoulder In Infectious And Parasitic Diseases Classified Elsewhere (HCC) Building, Eighth Floor [address] [place] [id number] Social History Tobacco Use Types Packs/Day Years [...] or relatives? How often do you attend presybeterian or Patient refused 2021 confucianist services? Do you belong to any clubs or No 05/17/2022 organizations such as presybeterian groups, unions, fraternal or athletic groups, or [...] Sign Reading Time Taken Comments Blood Pressure 141/91 01/01/2022 4:26 PM ONCOLOGY RN Pulse 95 01/01/2022 4:26 PM ONCOLOGY RN Temperature 36.8 ??C (98.2 ??F) 01/01/2022 4:26 PM ONCOLOGY RN Respiratory Rate 18 01/01/2022 4:26 PM ONCOLOGY RN Oxygen Saturation 93% 01/01/2022 4:26 PM ONCOLOGY RN Inhaled Oxygen Concentration - - Weight 69.9 kg (154 lb 1.6 12/30/2021 11:22 AM oz) ONCOLOGY RN Height 150.5 cm (4' 11.25) 12/30/2021 11:22 AM no shoe s/boots ONCOLOGY RN Body Mass Index 30.86 12/30/2021 11:22 AM ONCOLOGY RN documented in this encounter Discharge Summaries Dario Carrera M.D. - 01/01/2022 8:50 AM CST DISCHARGE SUMMARY BRIEF OVERVIEW Hospital: [facility] Discharge Provider: Cyrus Polk M.D. Primary Team: [facility] - [facility] Primary Care Providers: [...] RST [facility] OR DISCHARGE DISPOSITION Home-Health Care [facility] [6] ACTIVE ISSUES REQUIRING FOLLOW UP Active [...] were provided to the patient and caregiver(s). LOGY RN documented in this encounter Discharge Instructions AttachmentsThe following attachments cannot be sent through Care Everywhere. Continuous Nerve-Block Infusion System: Often called a ???pain pump?? (Guamanian) documented in this encounter Medications at Time [...] THC multivit-min/iron/folic/ Take 1 tablet by 0 ehg644 (HAIR, SKIN AND mouth daily. NAILS ADVANCED [...] attempt to follow up tomorrow by phone. LOGY RN Brendon Mckeon M.D. - 01/01/2022 5:28 PM CST Post [...] signs of local anesthetic systemic toxicity, occur. LOGY RN Faetmeh Pena R.N. - 01/01/2022 5:28 PM CST Post Anesthesia Assessment Note Patient: Angie Mosquera General Info Post-procedure day: 4 Follow-up type: outpatient regional Regional Block Information Description/location: interscalene Laterality: left Rate (mL/hour): 6 (Bupivacaine 0.2% On-Q) Overall Comments Tried reaching the patient today. Unable to do this. Her nerve catheter should have been removed this morning when she got up for the day. LOGY RN Ruth Gonzalez P.T., D.P.T. - 01/01/2022 4:29 PM CST Physical [...] mask during therapy session: no Outcome Measures [facility] Inpatient Short Form: -[facility] Basic Mobility (V.2) How much help [...] 3-5 steps with a railing?: A Little -[facility] Basic Mobility (V.2) Raw Score: 23 -[facility] Basic Mobility (V.2) Standardized Score: 50.88 Interpretation: Clinicians answer the -[facility] Inpatient Short Form based on observed patient [...] quad cane since it is not available [facility] by prescription. Barriers to Discharge Home: [...] (min): 23 min Ruth Gonzalez P.T., D.P.T. LOGY RN Elvira Duncan R.N. - 01/01/2022 3:21 PM [...] educational pamphlet Continuous Nerve-Block Infusion System ( [id number]).?? Discussed at home removal of nervecatheter, signs of toxicity, and provided the 20/06 number to call with questions.?? All questions answered. On-Q infusion will end Wednesday 01/03 at 2230. Informed patient she may wait until Tuesday morning to remove if she is sleeping. Note OnQ will not be empty as running at 6ml/hr with fill of 550cc. She is aware of this. Thao Rivera L.I.C.S.W., M.S.W. - 01/01/2022 11:23 AM CST SUBJECTIVE Referral Data The patient was seen for ongoing discharge needs. A list of infusion options (that patient/family geographically resides or requests) has been provided to and reviewed with patient/family. Disclaimers: Financial disclosure provided informing patient of our ownership and financial relationship of the [facility]/home health & hospice agencies. Reviewed insurance coverage, [...] Selected Services Address Phone Fax Patient Preferred [facility] [address], [place] [address] -- Contact: Intake NURSING: - Adjust the dosing schedule to accommodate home infusion. - Fax any prescriptions 24 hours prior to discharge. - Complete documentation in the Discharge Navigator including Nursing Report Info and Facility/NextLevel of Care Info - Call report and arrange for patient???s first visit.-Education completed 2/4 - Be sure the patient receives a [...] draws will be managed by Outpatient Facility: [facility] Address: [address] [place], [place] Contact: Princess They will provide IV access care for this [...] patient. Social Work will continue to follow. Joe Ervin, M.S.WBritton 01/01/2022 LOGY RN Gucci Salvador M.D. - 01/01/2022 10:45 AM CST DEMOGRAPHIC [...] questions answered to patient's satisfaction. Please page [phone] for questions. 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 [phone] LOGY RN Pamela Crawford Pharm.D., R.Ph. - 01/01/2022 10:14 AM CST [...] on post-operative opioids Pamela Crawford Pharm.D., R.Ph. [phone] LOGY RN Jose Guadalupe Nixon M.D. - 01/01/2022 8:31 AM CST Infectious Diseases Orthopedic Surgery [facility] Consulting Service Progress Note SUBJECTIVE -No acute [...] Date/Time Bacteria / Mandi Culture, Blood #2 [[id number]] Collected: 12/31/21 1604 Lab Status: In process Specimen: Blood, Peripheral Draw Updated: 12/31/21 1651 Narrative: Received Bactec aerobic and Bactec anaerobic bottles Specimen Information: Specimen ID: [id number] Specimen Source: Blood, Peripheral Draw Specimen Comment: Specimen Source Site: Blood Specimen Collection Start Date: 12/31/2021 4:05 PM Specimen Received Date: 12/31/2021 4:51 PM Specimen ID: [id number] Specimen Source: Blood, Peripheral Draw Specimen Comment: Specimen Source Site: Blood Specimen Collection Start Date: 12/31/2021 4:05 PM Specimen Received Date: 12/31/2021 4:51 PM Specimen ID: [id number] Specimen Source: Blood, Peripheral Draw Specimen Comment: Specimen Source Site: Blood Specimen Collection Start Date: 12/31/2021 4:04 PM Specimen Received Date: 12/31/2021 4:51 PM Bacteria / Mandi Culture, Blood #1 [[id number]] Collected: 12/31/21 1552 Lab Status: In process Specimen: Blood, Peripheral Draw Updated: 12/31/21 1651 Narrative: Received Bactec aerobic and Bactec anaerobic bottles Specimen Information: Specimen ID: [id number] Specimen Source: Blood, Peripheral Draw Specimen Comment: Specimen Source Site: Blood Specimen Collection Start Date: 12/31/2021 3:52 PM Specimen Received Date: 12/31/2021 4:50 PM Specimen ID: [id number] Specimen Source: Blood, Peripheral Draw Specimen Comment: Specimen Source Site: Blood Specimen Collection Start Date: 12/31/2021 3:53 PM Specimen Received Date: 12/31/2021 4:50 PM Specimen ID: [id number] Specimen Source: Blood, Peripheral Draw Specimen Comment: Specimen Source Site: Blood Specimen Collection Start Date: 12/31/2021 3:53 PM Specimen Received Date: 12/31/2021 4:50 PM Bacteria Cult, Aerobe / Anaerobe+Susc [[id number]] Collected: 12/30/21 1411 Lab Status: Preliminary result Specimen: Shoulder, Left Updated: 12/31/21 1601 Bacteria Cult, Aerobe/Anaerobe+Susc No growth to date. Narrative: Bacterial Culture: Placed in Bactec aerobic and Bactec anaerobic bottles Bacteria Cult, Aerobe / Anaerobe+Susc [[id number]] Collected: 12/30/21 1405 Lab Status: Preliminary result Specimen: Synovial Fluid, Left Shoulder Updated: 12/31/21 1601 Bacteria Cult, Aerobe/Anaerobe+Susc No growth to date. Narrative: Bacterial Culture: Placed in Bactec aerobic and Bactec anaerobic bottles Bacteria Cult, Aerobe / Anaerobe+Susc [[id number]] Collected: 12/30/21 1404 Lab Status: Preliminary result Specimen: Shoulder, Left Updated: 12/31/21 1601 Bacteria Cult, Aerobe/Anaerobe+Susc No growth to date. Narrative: Bacterial Culture: Placed in Bactec aerobic and Bactec anaerobic bottles Bacteria Cult, Aerobe / Anaerobe+Susc [[id number]] Collected: 12/30/21 1403 Lab Status: Preliminary result Specimen: Shoulder, Left Updated: 12/31/21 1601 Bacteria Cult, Aerobe/Anaerobe+Susc No growth to date. Narrative: Bacterial Culture: Placed in Bactec aerobic and Bactec anaerobic bottles Bacteria Cult, Aerobe / Anaerobe+Susc [[id number]] Collected: 12/30/21 1403 Lab Status: Preliminary result Specimen: Shoulder, Left Updated: 12/31/21 1601 Bacteria Cult, Aerobe/Anaerobe+Susc No growth to date. Narrative: Bacterial Culture: Placed in Bactec aerobic and Bactec anaerobic bottles SARS Coronavirus 2, Molecular Detection, PCR, Varies Asymptomatic [[id number]] Collected: 12/29/21 1111 Lab Status: Final result [...] ----ADDITIONAL INFORMATION---- This RT-PCR test using the WinWeb SARS-CoV-2 Assay ( [employer].) performed on the WinWeb Two Module System has received Emergency Use Authorization (EUA) by the U.S. Food and Drug Administration, and is modified from the railroad crossing protection maintainer's instructions with a bridging study. Performance characteristics were verified by [facility] in a manner consistent with CLIA requirements. Visit the CDC website: https://www.cdc.gov/coronavirus/ for the most recent guidelines on Coronavirus testing. Fact Sheet for Healthcare Providers: https://www.fda.gov/media/996630/download Fact Sheet for Patients: https://www.fda.gov/media/087049/download ASSESSMENT / PLAN 56-year-old female with a [...] is consistent with aspiration results from original [facility] evaluation which is likely commissary representative of the culprit organism causing her [...] of Infectious Diseases OPAT monitoring program at [phone] after dismissal. Primary service to follow labs while patient is hospitalized. [facility] pharmacist to adjust dosing after dismissal 4. [...] completion of therapy. Treatment plan reviewed with Demetri, who expressed understanding. All questions answered to patient's satisfaction.? This case was discussed with Dr. Salvador. We will sign off at this time. Please page Ortho C-ID service pager at [phone] with any questions. ?? Jose Guadalupe Nixon [...] Overall Comments Patient to dismiss with OnQ. LOGY RN Dario Carrera M.D. - 01/01/2022 7:00 AM CST SUBJECTIVE [...] - Date/Time Bacteria Cult, Aerobe / Anaerobe+Susc [[id number]] Collected: 12/30/21 1411 Lab Status: In process Specimen: Shoulder, Left Updated: 12/30/21 1540 Narrative: Bacterial Culture: Placed in Bactec aerobic and Bactec anaerobic bottles Bacteria Cult, Aerobe / Anaerobe+Susc [[id number]] Collected: 12/30/21 1405 Lab Status: In process Specimen: Synovial Fluid, Left Shoulder Updated: 12/30/21 1519 Narrative: Bacterial Culture: Placed in Bactec aerobic and Bactec anaerobic bottles Bacteria Cult, Aerobe / Anaerobe+Susc [[id number]] Collected: 12/30/21 1404 Lab Status: In process Specimen: Shoulder, Left Updated: 12/30/21 1536 Narrative: Bacterial Culture: Placed in Bactec aerobic and Bactec anaerobic bottles Bacteria Cult, Aerobe / Anaerobe+Susc [[id number]] Collected: 12/30/21 1403 Lab Status: In process Specimen: Shoulder, Left Updated: 12/30/21 1533 Narrative: Bacterial Culture: Placed in Bactec aerobic and Bactec anaerobic bottles Bacteria Cult, Aerobe / Anaerobe+Susc [[id number]] Collected: 12/30/21 1403 Lab Status: In process Specimen: Shoulder, Left Updated: 12/30/21 1538 Narrative: Bacterial Culture: Placed in Bactec aerobic and Bactec anaerobic bottles SARS Coronavirus 2, Molecular Detection, PCR, Varies Asymptomatic [[id number]] Collected: 12/29/21 1111 Lab Status: Final result [...] ----ADDITIONAL INFORMATION---- This RT-PCR test using the WinWeb SARS-CoV-2 Assay ( [employer].) performed on the WinWeb Two Module System has received Emergency Use Authorization (EUA) by the U.S. Food and Drug Administration, and is modified from the railroad crossing protection maintainer's instructions with a bridging study. Performance characteristics were verified by [facility] in a manner consistent with CLIA requirements. Visit the CDC website: https://www.cdc.gov/coronavirus/ for the most recent guidelines on Coronavirus testing. Fact Sheet for Healthcare Providers: https://www.fda.gov/media/703849/download Fact Sheet for Patients: https://www.fda.gov/media/150734/download ASSESSMENT / PLAN IMPRESSION/REPORT/PLAN #1 Status post [...] pm until 6 am, please page Arthur Cl at [facility] [phone] Trey Phan R.N. - 12/31/2021 7:34 AM CST Post [...] with onq pump later today or tomorrow Jey High D.O. - 12/31/2021 6:53 AM CST SUBJECTIVE [...] - Date/Time Bacteria Cult, Aerobe / Anaerobe+Susc [[id number]] Collected: 12/30/21 1411 Lab Status: In process Specimen: Shoulder, Left Updated: 12/30/21 1540 Narrative: Bacterial Culture: Placed in Bactec aerobic and Bactec anaerobic bottles Bacteria Cult, Aerobe / Anaerobe+Susc [[id number]] Collected: 12/30/21 1405 Lab Status: In process Specimen: Synovial Fluid, Left Shoulder Updated: 12/30/21 1519 Narrative: Bacterial Culture: Placed in Bactec aerobic and Bactec anaerobic bottles Bacteria Cult, Aerobe / Anaerobe+Susc [[id number]] Collected: 12/30/21 1404 Lab Status: In process Specimen: Shoulder, Left Updated: 12/30/21 1536 Narrative: Bacterial Culture: Placed in Bactec aerobic and Bactec anaerobic bottles Bacteria Cult, Aerobe / Anaerobe+Susc [[id number]] Collected: 12/30/21 1403 Lab Status: In process Specimen: Shoulder, Left Updated: 12/30/21 1533 Narrative: Bacterial Culture: Placed in Bactec aerobic and Bactec anaerobic bottles Bacteria Cult, Aerobe / Anaerobe+Susc [[id number]] Collected: 12/30/21 1403 Lab Status: In process Specimen: Shoulder, Left Updated: 12/30/21 1538 Narrative: Bacterial Culture: Placed in Bactec aerobic and Bactec anaerobic bottles SARS Coronavirus 2, Molecular Detection, PCR, Varies Asymptomatic [[id number]] Collected: 12/29/21 1111 Lab Status: Final result [...] ----ADDITIONAL INFORMATION---- This RT-PCR test using the WinWeb SARS-CoV-2 Assay ( [employer].) performed on the WinWeb Two Module System has received Emergency Use Authorization (EUA) by the U.S. Food and Drug Administration, and is modified from the railroad crossing protection maintainer's instructions with a bridging study. Performance characteristics were verified by [facility] in a manner consistent with CLIA requirements. Visit the CDC website: https://www.cdc.gov/coronavirus/ for the most recent guidelines on Coronavirus testing. Fact Sheet for Healthcare Providers: https://www.fda.gov/media/081935/download Fact Sheet for Patients: https://www.fda.gov/media/866358/download ASSESSMENT / PLAN IMPRESSION/REPORT/PLAN #1 Status post [...] Disease recommendations for final antibiotic plan Jey Matos DO Shoulder & Elbow Fellow [facility] Orthopaedic Surgery For any questions or concerns from 6 am until 6 pm, please page Jam service For urgent matters from 6 pm until 6 am, please page Ortho House at [facility] [phone] LOGY RN Trey Rdz R.N. - 12/30/2021 4:39 PM CST Post [...] 3/10 Highest pain score last 24 hours: 03/07 Patient Care Plan:continue current management per plan/IPS protocol LOGY RN Feli Viveros Pharm.D., R.Ph. - 12/30/2021 11:33 AM CST [...] at home. She is registered with the [facility] for medical cannabis and she [place]. She was told to leave her medical cannabis at home, so has none with her currently. Per patient report, morphine was removed from her allergy list. She noted that fentanyl caused hallucinations, but only with large doses. Prior to Admission Medications Med List Status: Pharmacy Complete Set By: Feli Viveros, PharmBrittonDBritton, R.Ph. at 12/30/2021 11:33 AM Taking? Last [...] Take 150 mg by mouth every morning. dzbfliztzv-hkiohpfokruzo-fmcl (ESGIC) 50-325-40 mg per tablet Past Week [...] by mouth 2 (two) times a day. LOGY RN documented in this encounter Procedure Notes Soraida Dick R.N. - 01/01/2022 12:11 PM CSTAssociated Order(s): [...] to release the adhesive from the skin. http://[employer]/products/secureportiv LOGY RN documented in this encounter Consult Notes Ruth Gonzalez P.T., D.P.T. - 12/31/2021 4:00 PM CST Physical Therapy Inpatient Evaluation/Treatment SUBJECTIVE Patient's Name: Angie Mosquera Referring/Attending Provider: [...] (HCC) ??? Nicotine Dependence Unspecified ??? Other Residential Current Drug Therapy ??? 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 ABDOMINOPLASTY ??? ARTHROPLASTY - RESECTION SHOULDER Left 12/30/2021 Procedure: ARTHROPLASTY RESECTION SHOULDER.; Surgeon: Cyrus Polk M.D.; Location: [facility] OR ??? BACK SURGERY 1998 lumbar fusion ??? BARIATRIC SURGERY with revision in 2006 ??? CARPAL TUNNEL RELEASE ??? CERVICAL FUSION C4 - T1 discectomy, fusion, hardware removal ??? CHOLECYSTECTOMY ??? EXTRADURAL COMPUTER NAVIGATION N/A 12/07/2019 Procedure: EXTRADURAL COMPUTER NAVIGATION.; Surgeon: Darlin Olmedo M.D.; Location: [facility] OR ??? FOOT SURGERY Left metal [...] Right Lives With: Alone Receives Help From: chair car attendant, Family, Friend(s) ADL Assistance: Required assistance ADL Assistance Comments: Gets help from INVENTORY ASSOCIATE AND DRIVER for her bath/shower and for her meals IADL/Homemaking Assistance: Required assistance IADL/Homemaking Assistance Comments: Gets help for housecleaning Driving: Independent Occupational Role: On disability Prior Mobility/Functional Transfers Level of [place]: Modified independent Gait Devices/Wheelchair Used: Cane Gait [...] session with call light in reach and INVENTORY ASSOCIATE AND DRIVER present, all needs metand questions answered. Contact monitoring: PPE used during therapy: Therapist was wearing the following PPE throughout entire session: surgicalmask and eye protection Patient was wearing a mask during therapy session: yes, when out of room Outcome Measures AM-PAC Inpatient Short Form: AM-PAC [...] 3-5 steps with a railing?: A Lot -[facility] Basic Mobility (V.2) Raw Score: 17 -[facility] Basic Mobility (V.2) Standardized Score: 39.67 Interpretation: Clinicians answer the -[facility] Inpatient Short Form based on observed patient [...] Time (min): 36 min Ruth Gonzalez P.T., D.P.T. LOGY RN Thao You L.I.C.SBrenton, M.S.W. - 12/31/2021 2:04 PM CSTAssociated Order(s): IP CONSULT TO CARE MANAGEMENT; IP CONSULT TO CARE MANAGEMENT; IP CONSULT TO CARE MANAGEMENT Psychosocial Assessment SUBJECTIVE DEMOGRAPHIC INFORMATION Person(s) present during interview: Patient Primary care clinic and provider: [facility] Primary Language: Guamanian Legal Information: Legal decision maker for self [...] / Household Status: Patient resides alone in [place], [place]. She lives in a two bedroom apartment. Patient has four adultchildren two of whom live in [place]. Patient son Rafal lives next door to patient. Support Systems: Family members, Friends/neighbors. We have not received permission to contact them. Primary caregiver: Self Accompanied by/Relationship: None Support System: Family members, Friends/neighbors Spirituality / Mandaeism / Culture: , None History: No Education: High school Employment: Disabled Psychosocial Risk Factors impacting the patient: Resides alone, mental health issues Abuse, Neglect, Maltreatment, Trauma: Current: None reported. Past: None reported. ENVIRONMENTAL SUPPORTS Current Living Situation: Private residence Patient's Home Environment: Resides in a two bedroom apartment [address] [facility] Care Facility Name (if applicable): NA [...] Behavior: Oriented Communication: Reads, writes and speaks Guamanian It is anticipated that the patient will need assistance with .Dressing,bathing, meal prep, housekeeping, shopping ASSISTIVE DEVICES Patient has the following equipment: Eyeglasses, Dentures upper, Dentures lower, cane, walker Patient anticipates potentially needing the following additional equipment: None Transportation needs: Independent to drive, support from family and friends SERVICES REQUESTED Infusion therapy [employer] Formal and Informal Resources: Patient receives home health aid services three times per week and halfway visit one [facility] FINANCES/INSURANCE Primary insurance: MEDICARE A AND B Secondary insurance: MEDICA ADVANCE DIRECTIVES Advance Directive: Patient does not have advance directive, does not want information DISCHARGE PLANNING Patient is planning on returning home upon her discharge. She currently receives home health aid services and halfway through [facility]. Patient also has support from a [...] good support group consisting of family, friends and[facility] health services [facility]. INTERVENTIONS ?? Psychosocial assessment ?? Rapport building ?? Education on coping with chronic pain. PLAN ?? Social work will continue to follow for discharge planning and support. ?? Social work did speak with Pat at [facility] to confirm home health services. ?? Social work will work on infusion therapy referrals as well as home health/outpatient picc site care and labs. Anticipated barriers to the transition of care/plan: None Joe Ervin, M.S.W. 12/31/2021 LOGY RN Jose Guadalupe Nixon M.D. - 12/31/2021 7:31 AM CSTAssociated Order(s): IP CONSULT TO INFECTIOUS DISEASES Infectious Diseases Orthopedic Surgery [facility] Consulting Service Consult Note SUBJECTIVE REASON FOR [...] resistance on OSH AST. She presented to [facility] (unclear if on antibiotics) for further evaluation given persistent L shoulder pain 08/2021 prompting aspiration (09/25/21) which revealed elevated TNC (98458) with 81% PMNs with cultures positive for1 [...] patient was subsequently admitted to [facility] for further management. Intraoperative cultures and synovial [...] - Date/Time Bacteria Cult, Aerobe / Anaerobe+Susc [[id number]] Collected: 12/30/21 1411 Lab Status: In process Specimen: Shoulder, Left Updated: 12/30/21 1540 Narrative: Bacterial Culture: Placed in Bactec aerobic and Bactec anaerobic bottles Bacteria Cult, Aerobe / Anaerobe+Susc [[id number]] Collected: 12/30/21 1405 Lab Status: In process Specimen: Synovial Fluid, Left Shoulder Updated: 12/30/21 1519 Narrative: Bacterial Culture: Placed in Bactec aerobic and Bactec anaerobic bottles Bacteria Cult, Aerobe / Anaerobe+Susc [[id number]] Collected: 12/30/21 1404 Lab Status: In process Specimen: Shoulder, Left Updated: 12/30/21 1536 Narrative: Bacterial Culture: Placed in Bactec aerobic and Bactec anaerobic bottles Bacteria Cult, Aerobe / Anaerobe+Susc [[id number]] Collected: 12/30/21 1403 Lab Status: In process Specimen: Shoulder, Left Updated: 12/30/21 1533 Narrative: Bacterial Culture: Placed in Bactec aerobic and Bactec anaerobic bottles Bacteria Cult, Aerobe / Anaerobe+Susc [[id number]] Collected: 12/30/21 1403 Lab Status: In process Specimen: Shoulder, Left Updated: 12/30/21 1538 Narrative: Bacterial Culture: Placed in Bactec aerobic and Bactec anaerobic bottles SARS Coronavirus 2, Molecular Detection, PCR, Varies Asymptomatic [[id number]] Collected: 12/29/21 1111 Lab Status: Final result [...] ----ADDITIONAL INFORMATION---- This RT-PCR test using the WinWeb SARS-CoV-2 Assay ( [employer].) performed on the WinWeb Two Module System has received Emergency Use Authorization (EUA) by the U.S. Food and Drug Administration, and is modified from the railroad crossing protection maintainer's instructions with a bridging study. Performance characteristics were verified by [facility] in a manner consistent with CLIA requirements. Visit the CDC website: https://www.cdc.gov/coronavirus/ for the most recent guidelines on Coronavirus testing. 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 Please page the [facility]-ID service pager at [phone] with questions. Thank you for the consultation. Jose Guadalupe Nixon M.D. LOGY RN Associated attestation - Gucci Salvador M.D. - 12/31/2021 6:07 PM ONCOLOGY RN DEMOGRAPHIC INFORMATION Clinic Number:[id number] Patient Name: Angie [...] Oxycodone. Oxycodone filled here at [facility] pharmacy. Patient going home with an interscalene block OnQ pump. Transportation provided by her son. LOGY RN Fanny Sifuentes R.N. - 12/31/2021 11:00 PM [...] Nasal mucous membranes remain intact Outcome: Progressing LOGY RN Ezequiel Hernandez R.N. - 12/30/2021 10:27 PM CST Shift [...] staff assistance to bathroom. Navin Hernandez R.N. LOGY RN documented in this encounter OR Notes Op Note - Cyrus Polk M.D. - 12/30/2021 2:50 PM CST STAFF: Cyrus Polk M.D. RESIDENT: Dario Carrera M.D. PRE-OPERATIVE DIAGNOSIS Left infected reverse arthroplasty. POST-OPERATIVE DIAGNOSIS Left infected reverse arthroplasty. A resident care assistant was necessary for one or more [...] Removal reverse arthroplasty, implantation antibiotic spacer Cyrus oPlk M.D. CT CT Job ID: [id number] LOGY RN documented in this encounter Miscellaneous Notes Hospital [...] and pain is controlled on oral medications. LOGY RN documented in this encounter Plan of Treatment Scheduled Referrals Name Type Priority Associated Diagnoses Order S [facility] Outpatient Referral Routine Direct Infection Of Ordered: Health Referral Left Shoulder In 01/01/20 22 Infectious And Parasitic Diseases Classified Elsewhere (HCC) documented as of this encounter Procedures Procedure Name Priority Date/Time Associated Comments Diagnosis PLACE PERIPHERALLY Routine 01/01/2022 12:11 Resul ts for this INSERTED CENTRAL PM ONCOLOGY RN procedure a re in CATHETER (PICC) the results section. REMOTE OXIMETRY Routine 12/31/2021 5:23 MONITORING CONT. PM ONCOLOGY RN REMOTE OXIMETRY Routine 12/31/2021 5:23 MONITORING CONT. PM ONCOLOGY RN BACTERIA / MANDI Routine 12/31/2021 4:04 Result s for this CULTURE, BLOOD PM ONCOLOGY RN procedure are in the results section. BACTERIA / MANDI Routine 12/31/2021 3:52 Result s for this CULTURE, BLOOD PM ONCOLOGY RN procedure are in the results section. ADULT OXYGEN THERAPY Routine 12/31/2021 8:01 AM ONCOLOGY RN CBC WITH Routine 12/31/2021 4:25 Results for this DIFFERENTIAL, B AM ONCOLOGY RN procedure ar e in the results section. BASIC METABOLIC Routine 12/31/2021 4:25 Results f or this PANEL, S/P AM ONCOLOGY RN procedure are i n the results section. ADULT OXYGEN THERAPY Routine 12/30/2021 8:01 PM ONCOLOGY RN ADULT OXYGEN THERAPY Routine 12/30/2021 5:12 PM ONCOLOGY RN ADULT OXYGEN THERAPY Routine 12/30/2021 5:12 PM ONCOLOGY RN ADULT OXYGEN THERAPY Routine 12/30/2021 3:46 PM ONCOLOGY RN ADULT OXYGEN THERAPY Routine 12/30/2021 3:46 PM ONCOLOGY RN DX SHOULDER LEFT 1 RAD - Timed (for 12/30/2021 3:41 Re sults for this VIEW specific PM ONCOLOGY RN procedure are i n dates/times) the results section. SURGICAL PATHOLOGY, Routine 12/30/2021 2:15 Shoulder Joint Res ults for this FROZEN LAB PM ONCOLOGY RN Disorder Left procedure are in the results section. BACTERIA CULT, Routine 12/30/2021 2:11 Results fo r this AEROBE/ANAEROBE+SUSC PM ONCOLOGY RN procedu re are in the results section. BACTERIA CULT, Routine 12/30/2021 2:05 Results fo r this AEROBE/ANAEROBE+SUSC PM ONCOLOGY RN procedu re are in the results section. BACTERIA CULT, Routine 12/30/2021 2:04 Results fo r this AEROBE/ANAEROBE+SUSC PM ONCOLOGY RN procedu re are in the results section. BACTERIA CULT, Routine 12/30/2021 2:03 Results fo r this AEROBE/ANAEROBE+SUSC PM ONCOLOGY RN procedu re are in the results section. BACTERIA CULT, Routine 12/30/2021 2:03 Results fo r this AEROBE/ANAEROBE+SUSC PM ONCOLOGY RN procedu re are in the results section. ARTHROPLASTY 12/30/2021 12:34 Shoulder Joint RESECTION SHOULDER PM ONCOLOGY RN Disorder Left documented in this encounter Results Place peripherally inserted central catheter (PICC) (01/01/2022 12:11 PM ONCOLOGY RN) Narrative MMODAL - 01/01/2022 12:11 PM ONCOLOGY RN Soraida Dick R.N. ? 01/01/2022 12:13 PM [...] to release the adhesive from the skin. http://[employer]/products/secur eportiv Dario Carrera M.D. PROCEDURE/MINOR SURGICAL ORD ERABLES Performing Organization Address City/State/ZIP Code Phon e Number MMODAL MMODAL NA Bacteria / Mandi Culture, Blood #2 (12/31/2021 4:04 PM ONCOLOGY RN) [facility] Method Time Signature Bacteria/Valerie No growth 01/05/2022 DTL da Culture, after 5 5:02 PM ONCOLOGY RN Blood days of incubation. Specimen (Source) Anatomical Collection Method Collection Time Re ceived Time Location / / Volume Laterality Blood (Blood, 12/31/2021 4:04 12/31/2021 4:51 Peripheral Draw) PM ONCOLOGY RN PM ONCOLOGY RN Comment: Specimen Source Site: Blood Narrative [facility] - 01/05/2022 5:02 PM ONCOLOGY RN Received Bactec aerobic and Bactec anaer obic bottles Dario Carrera M.D. LAB MICROBIOLOGY - GENERAL O MARY Performing Organization Address City/State/ZIP Code Phon e Number [facility] - [address] Bacteria / Mandi Culture, Blood #1 (12/31/2021 3:52 PM ONCOLOGY RN) [facility] Method Time Signature Bacteria/Valerie No growth 01/05/2022 DTL da Culture, after 5 5:02 PM ONCOLOGY RN Blood days of incubation. Specimen (Source) Anatomical Collection Method Collection Time Re ceived Time Location / / Volume Laterality Blood (Blood, 12/31/2021 3:52 12/31/2021 4:50 Peripheral Draw) PM ONCOLOGY RN PM ONCOLOGY RN Comment: Specimen Source Site: Blood Narrative [facility] - 01/05/2022 5:02 PM ONCOLOGY RN Received Bactec aerobic and Bactec anaer obic bottles Dario Carrera M.D. LAB MICROBIOLOGY - GENERAL O PATERASARAH Performing Organization Address City/[facility]/ZIP Code Phon e Number [facility] - [address] [place], [place] [address] (ABNORMAL) CBC with Differential, Blood (12/31/2021 4:25 AM ONCOLOGY RN) [facility] Method Time Signature Hemoglobin 8.9 (L) 11.6 - 12/31/2021 DTL 15.0 g/dL 5:15 AM ONCOLOGY RN Hematocrit 27.3 (L) 35.5 - 12/31/2021 DTL 44.9 % 5:15 AM ONCOLOGY RN Erythrocytes 3.26 (L) 3.92 - 12/31/2021 DTL 5.13 5:15 AM ONCOLOGY RN x10(12)/L MCV 83.7 78.2 - 12/31/2021 DTL 97.9 fL 5:15 AM ONCOLOGY RN RBC Distrib Width 19.6 (H) 12.2 - 12/31/2021 DTL 16.1 % 5:15 AM ONCOLOGY RN Platelet Count 274 157 - 371 12/31/2021 DTL x10(9)/L 5:15 AM ONCOLOGY RN Leukocytes 6.6 3.4 - 9.6 12/31/2021 DTL x10(9)/L 5:15 AM ONCOLOGY RN Neutrophils 4.91 1.56 - 12/31/2021 DTL 6.45 5:15 AM ONCOLOGY RN x10(9)/L Lymphocytes 1.10 0.95 - 12/31/2021 DTL 3.07 5:15 AM ONCOLOGY RN x10(9)/L Monocytes 0.61 0.26 - 12/31/2021 DTL 0.81 5:15 AM ONCOLOGY RN x10(9)/L Eosinophils <0.03 0.03 - 12/31/2021 DTL 0.48 5:15 AM ONCOLOGY RN x10(9)/L Basophils <0.03 0.01 - 12/31/2021 DTL 0.08 5:15 AM ONCOLOGY RN x10(9)/L Specimen Anatomical Collection Method Collection Time Receive d Time (Source) Location / / Volume Laterality Blood (Blood, 12/31/2021 4:25 AM 12/31/19 22 5:04 Venous) ONCOLOGY RN AM ONCOLOGY RN Dario Carrera M.D. LAB BLOOD ADD-ON Performing Organization Address City/State/ZIP Code Phon e Number [facility] - [address] [place], [place] [address] [facility] [place] [address] [facility] [address] [facility] (ABNORMAL) Basic Metabolic Panel (12/31/2021 4:25 AM ONCOLOGY RN) P athologist Signature Potassium, S 4.4 3.6 - 5.2 12/31/2021 DTL mmol/L 5:35 AM ONCOLOGY RN Sodium, S 134 (L) 135 - 145 12/31/2021 DTL mmol/L 5:35 AM ONCOLOGY RN Chloride, S 103 98 - 107 12/31/2021 DTL mmol/L 5:35 AM ONCOLOGY RN Bicarbonate, S 22 22 - 29 12/31/2021 DTL mmol/L 5:35 AM ONCOLOGY RN Anion Gap 9 7 - 15 12/31/2021 DTL 5:35 AM ONCOLOGY RN BUN (Blood 21 6 - 21 12/31/2021 DTL Urea mg/dL 5:35 AM ONCOLOGY RN Nitrogen), S Creatinine, S 0.74 0.59 - 12/31/2021 DTL 1.04 mg/dL 5:35 AM ONCOLOGY RN eGFR-Non 90 >=60 12/31/2021 DTL Black/ mL/min/BSA 5:35 AM ONCOLOGY RN Turkmen Comment: ----ADDITIONAL INFORMATION---- Estimated GFR calculated using the 2009 CKD_EPI creatinine equation. eGFR-Black/ >90 >=60 mL/min/BSA 2021 5:35 AM ONCOLOGY RN DTL Comment: ----ADDITIONAL INFORMATION---- Estimated GFR calculated using the 2009 CKD_EPI creatinine equation. Calcium, Total, S 8.7 8.6 - 10.0 mg/dL 12/31/2021 5:35 AM ONCOLOGY RN DTL Glucose, S 138 70 - 140 mg/dL 12/31/2021 5:35 AM ONCOLOGY RN D TL Specimen Anatomical Collection Method Collection Time Receive d Time (Source) Location / / Volume Laterality Blood (Blood, 12/31/2021 4:25 AM 12/31/19 5:18 Venous) ONCOLOGY RN AM ONCOLOGY RN Dario Carrera M.D. LAB BLOOD ADD-ON Performing Organization Address City/State/ZIP Code Phon e Number [facility] - [address] [place], [place] [address] [facility] [place] [address] [facility] [address] DX Shoulder Left 1 View (12/30/2021 3:41 PM ONCOLOGY RN) Anatomical Region Laterality Modality Upper Extremity, Shoulder, Musculoskeletal RST LOS, Left Computed Radiography Musculoskeletal ARZ LOS, Muskuloskeletal FLA LOS Specimen (Source) Anatomical Collection Method Collection Time Re ceived Time Location / / Volume Laterality 12/30/2021 3:54 PM ONCOLOGY RN Impressions 12/30/2021 3:59 PM ONCOLOGY RN Postoperative changes of a left shoulder arthroplasty resection and placement of an antibiotic spacer. Negat lalo for postoperative purposes. Narrative 12/30/2021 3:59 PM ONCOLOGY RN EXAM: ??DX SHOULDER LEFT 1 VIEW Procedure Note Timothy Resendiz M.D. - 12/30/2021Forma tting of this note might be different from the original. EXAM: DX SHOULDER LEFT 1 VIEW IMPRESSION: Postoperative changes of a left shoulder arthroplasty resection and placement of an antibiotic spacer. Negat lalo for postoperative purposes. Dario Carrera M.D. IMG DIAGNOSTIC IMAGING [facility] Surgical Pathology, Frozen Lab (12/30/2021 2:15 PM ONCOLOGY RN) Component Value Ref Test Analysis Performed At [facility] Range Method Time Signature 01/01/2022 METH 8:22 AM ONCOLOGY RN Participated in Kelly Howard 01/01/2022 METH the D.O.-Pathology 8:22 AM ONCOLOGY RN Interpretation Resident Report Solomon Marcum M.D. 01/01/2022 METH electronically 8:22 AM ONCOLOGY RN signed by I verify that I have examined all relevant slides/materials for the specimen(s) and rendered or confirmed the diagnosis. Frozen A. ??Synovium, left shoulder, excision: ??Synovial tissue 01/01/2022 M[facility] Intraoperative with 8:22 AM ONCOLOGY RN Report acute inflammation (>5 neutrophils/high power field). Signed by Solomon Marcum M.D. 12/31/2021 8:17 AM Gross Description A. ??Received fresh labeled left shoulder is a 1.4 x 0.9 x 01/01/2022 METH 0.4 cm aggregate of red and campbell fibrous tissue, which is 8:22 AM ONCOLOGY RN soft. ??All submitted for frozen and permanent sections. Grossed by Nikki Gallardo. Block Summary A Left shoulder 01/01/2022 M[facility] A1 Left shoulder-frozen 8:22 AM ONCOLOGY RN Interpretation FINAL DIAGNOSIS 01/01/2022 METH 8:22 AM ONCOLOGY RN A. ??Synovium, left shoulder, excision: ??Synovial tissue with acute inflammation (>5 neutrophils/high power field). Specimen (Source) Anatomical Collection Method Collection Time Re ceived Time Location / / Volume Laterality Tissue (Shoulder, 12/30/2021 2:15 PM Left) ONCOLOGY RN Narrative This result has an attachment that is no t available. Cyrus Polk M.D. LAB SURG PATH ORDERABLES Performing Organization Address [facility] Phon e Number [facility] - [address] [place], [place] [address] [facility] [place] [address] [facility] [address] [facility] Bacteria Cult, Aerobe / Anaerobe+Susc (12/30/2021 2:11 PM ONCOLOGY RN) [facility] Method Time Signature Bacteria Cult, No growth 01/13/2022 DTL Aerobe/Anaerob after 14 4:02 PM ONCOLOGY RN e+Susc days of incubation. Specimen Anatomical Collection Method Collection Time Receive d Time (Source) Location / / Volume Laterality Shoulder, Left 12/30/2021 2:11 PM 022 3:38 ONCOLOGY RN PM ONCOLOGY RN Comment: Specimen Source Site: Tissue #4 Narrative [facility] - 01/13/2022 4:02 PM ONCOLOGY RN Bacterial Culture: Placed in Bactec aero bic and Bactec anaerobic bottles Cyrus Polk M.D. LAB MICROBIOLOGY - GENERAL O RDERABLES Performing Organization Address [facility] Phon e Number [facility] - [address] [place], [place] [address] [facility] [place] [address] [facility] [address] [facility] (ABNORMAL) Bacteria Cult, Aerobe / Anaerobe+Susc (12/30/2021 2:05 PM ONCOLOGY RN) Component Value Ref Test Analysis Performed At [employer] Range Method Time Signature Bacteria STAPHYLOCOCCUS EPIDERMIDIS 01/11/2022 DT L Cult, Growth after 4 days 7:55 AM ONCOLOGY RN Aerobe/Anaero (A) be+Susc Comment: Semi-Urgent Result. Semi-Urgent This is a semi-urgent result [facility] () [facility] Specimen Anatomical Collection Method Collection Time Receive d Time (Source) Location / / Volume Laterality Synovial Fluid, 12/30/2021 2:05 PM 2021 3:17 Left Shoulder ONCOLOGY RN PM ONCOLOGY RN Comment: Specimen Source Site: Fluid Narrative [facility] - [facility] - 01/11/2022 7:55 AM ONCOLOGY RN Bacterial Culture: Placed in Bactec aero bic [...] City/State/ZIP Code Phon e Number [facility] - [facility] [address] [place], [place] [address] [place] [address] [facility] [address] Bacteria Cult, Aerobe / Anaerobe+Susc (12/30/2021 2:04 PM ONCOLOGY RN) [facility] Method Time Signature Bacteria Cult, No growth 01/13/2022 [facility] Aerobe/Anaerob after 14 4:02 PM ONCOLOGY RN e+Susc days of incubation. Specimen Anatomical Collection Method Collection Time Receive d Time (Source) Location / / Volume Laterality Shoulder, Left 12/30/2021 2:04 PM 022 3:34 ONCOLOGY RN PM ONCOLOGY RN Comment: Specimen Source Site: Tissue #3 Narrative [facility] - 01/13/2022 4:02 PM ONCOLOGY RN Bacterial Culture: Placed in Bactec aero bic and Bactec anaerobic bottles Cyrus Polk M.D. LAB MICROBIOLOGY - GENERAL O MARY Performing Organization Address [facility] Phon e Number [facility] - [address] [place], [place] [address] [facility] [place], [place] [id number] [place] [address] [address] [facility] Bacteria Cult, Aerobe / Anaerobe+Susc (12/30/2021 2:03 PM ONCOLOGY RN) [facility] [employer] Method Time Signature Bacteria Cult, No growth 01/13/2022 DTL Aerobe/Anaerob after 14 4:02 PM ONCOLOGY RN e+Susc days of incubation. Specimen Anatomical Collection Method Collection Time Receive d Time (Source) Location / / Volume Laterality Shoulder, Left 12/30/2021 2:03 PM 022 3:37 ONCOLOGY RN PM ONCOLOGY RN Comment: Specimen Source Site: Tissue #2 Narrative [facility] - 01/13/2022 4:02 PM ONCOLOGY RN Bacterial Culture: Placed in Bactec aero bic and Bactec anaerobic bottles Cyrus Polk M.D. LAB MICROBIOLOGY - GENERAL O MARY Performing Organization Address City/[facility] Phon e Number [facility] - [address] [place], [place] [address] [place], [place] [id number] [place] [address] Bacteria Cult, Aerobe / Anaerobe+Susc (12/30/2021 2:03 PM ONCOLOGY RN) [facility] [employer] Method Time Signature Bacteria Cult, No growth 01/13/2022 DTL Aerobe/Anaerob after 14 4:02 PM ONCOLOGY RN e+Susc days of incubation. Specimen Anatomical Collection Method Collection Time Receive d Time (Source) Location / / Volume Laterality Shoulder, Left 12/30/2021 2:03 PM 022 3:31 ONCOLOGY RN PM ONCOLOGY RN Comment: Specimen Source Site: Tissue #1 Narrative [facility] - 01/13/2022 4:02 PM ONCOLOGY RN Bacterial Culture: Placed in Bactec aero bic and Bactec anaerobic bottles Cyrus Polk M.D. LAB MICROBIOLOGY - GENERAL O RDERABLES Performing Organization Address City/State/ZIP Code Phon e Number [facility] - [address] [place], [place] [address] [facility] [place] [address] [facility] [address] documented in this encounter Visit Diagnoses Diagnosis Direct Infection Of Left Shoulder In Inf ectious And Parasitic Diseases Classified Elsewhere (HCC) - Primary Shoulder Joint Disorder Left Pain Shoulder Left documented in this encounter Admitting Diagnoses Diagnosis Direct Infection Of Left Shoulder In Inf ectious And Parasitic Diseases Classified Elsewhere (HCC) Pain Shoulder Left documented in this encounter Administered Medications Inactive Administered Medications - up to 3 most recent administrations Medication Order MAR Action Action Date Dose Rate Site acetaminophen tablet 1,000 mg Given 12/30/2021 12:02 PM ONCOLOGY RN 1,00 0 mg (TYLENOL) 1,000 mg, oral, Once, On Tue12/30/21 at 1215, For 1 dose, Pre-Op acetaminophen tablet 1,000 mg (TYLENOL) Given 01/01/2022 11:36 AM ONCOLOGY RN 1,000 mg 1,000 mg, oral, Every 6 hours, First dose on Tue12/30/21 at 1800 Given 01/01/2022 6:28 AM ONCOLOGY RN 1,000 mg Given 12/31/2021 11:51 PM ONCOLOGY RN 1,000 mg albuterol nebulizer solution 2.5 mg Given 12/31/2021 4:44 PM ONCOLOGY RN 2.5 mg 2.5 mg, nebulization, Every 6 hours PRN, wheezing, Starting on Tue12/30/21 at 1711, Albuterol nebs were interchanged for albuterol/levalbuterol MDI (same frequency) atorvastatin tablet 80 mg (LIPITOR) Given 12/31/2021 8:57 PM ONCOLOGY RN 80 mg 80 mg, oral, Daily at bedtime, First dose on Tue12/30/21 at 2100 Given 12/30/2021 9:55 PM ONCOLOGY RN 80 mg benzonatate capsule 100 mg (TESSALON PER LES) Given 01/01/2022 3:10 AM ONCOLOGY RN 100 mg 100 mg, oral, 3 times daily PRN, cough, Starting on Tue12/31/21 at 1702, Swallow whole. Do NOT crush, chew or open capsule. Given 12/31/2021 5:39 PM ONCOLOGY RN 100 mg bupivacaine PF 0.2 % 550 mL in NaCl New Bag 01/01/2022 3:15 PM ONCOLOGY RN 6 mL/hr 6 mL/hr 0.9% On-Q pain pump (CB004) 6 mL/hr, nerve catheter, Continuous, Starting on Tue01/01/22 at 1500, PACU & Post-Op, Location: Nerve Catheter Location, Nerve Catheter Location: Interscalene, Device: On-Q Pump bupivacaine PF 0.2 % in Rate/Dose Verify 01/01/2022 1:00 AM ONCOLOGY RN 6 mL/ hr 6 mL/hr NaCl 0.9% 341 mL infusion (MARCAINE) 6 mL/hr, nerve catheter, Continuous, Starting on Tue12/30/21 at 1600, PACU & Post-Op, Nerve Catheter Location: Interscalene, Device: Hospital Infusion Pump Rate/Dose Verify 12/31/2021 12:11 AM ONCOLOGY RN 6 mL/hr 6 mL/hr New Bag 12/30/2021 3:49 PM ONCOLOGY RN 6 mL/hr 6 mL/hr buPROPion XL 24 hr tablet 150 mg (WELLBUTRIN Given 02/2022 8:35 AM ONCOLOGY RN 150 mg XL) 150 mg, oral, Every morning, First dose on Clementine 12/31/21 at 0900, Swallow whole. Do NOT crush, chew, or split tablet. Given 12/31/2021 8:16 AM ONCOLOGY RN 150 mg calcium carbonate chewable tablet Given 12/31/2021 11: 46 PM ONCOLOGY RN 400 mg of calcium 400 mg of calcium (TUMS) 400 mg of calcium, oral, Every 2 hour PRN, indigestion, Starting on Tue12/30/21 at 1711, Doses listed are in mg of elemental calcium. Take with food. 500 mg calcium carbonate contains 200 mg of elemental calcium. Given 12/31/2021 9:15 PM ONCOLOGY RN 400 mg of calcium carboxymethylcellulose 0.5 % ophthalmic Given 01/01/2022 1:15 AM ONCOLOGY RN 2 drops solution 2 drop (REFRESH PLUS) 2 drop, both eyes, 4 times daily PRN, dry eyes, Starting on Tue12/30/21 at 1711 Given 12/31/2021 12:31 PM ONCOLOGY RN 2 drops Given 12/31/2021 12:23 AM ONCOLOGY RN 2 drops ceFAZolin in dextrose (iso-os) IVPB 2 New Bag 01/01/2022 6:27 AM ONCOLOGY RN 2 g 200 mL/hr g (ANCEF) 2 g, intravenous, at 200 mL/hr, Administer over 30 Minutes, Every 8 hours, First dose on Tue12/30/21 at 2200, Start within 8 hours of last IV dose., Drug Monitoring Program: Pharmacist to adjust medication dosing based on indication and drug clearance factors., Indications: Bone and/or joint infection New Bag 12/31/2021 10:32 PM ONCOLOGY RN 2 g 200 mL/hr New Bag 12/31/2021 2:21 PM ONCOLOGY RN 2 g 200 mL/hr cefTRIAXone in dextrose (iso-osm) IVPB New Bag 01/01/2022 2:38 PM ONCOLOGY RN 2 g 200 mL/hr 2 g (ROCEPHIN) 2 g, intravenous, at 200 mL/hr, Administer over 15 Minutes, Daily before lunch, First dose on Tue01/01/22 at 1345, Drug Monitoring Program: Pharmacist to adjust medication dosing based on indication and drug clearance factors., Indications: Bone and/or joint infection cetirizine tablet 10 mg (ZyrTEC) Given 01/01/2022 8:35 AM ONCOLOGY RN 10 mg 10 mg, oral, 2 times daily, First dose on Tue12/30/21 at 2100, Drug Monitoring Program: Pharmacist to adjust medication dosing based on indication and drug clearance factors. Given 12/31/2021 8:57 PM ONCOLOGY RN 10 mg Given 12/31/2021 8:16 AM ONCOLOGY RN 10 mg cholecalciferol (vitamin D3) tablet 25 m cg Given 01/01/2022 8:35 AM ONCOLOGY RN 25 mcg 25 mcg, oral, Daily, First dose on Tue12/31/21 at 0900, cholecalciferol (vitamin D3) orderable was interchanged for cholecalciferol (vitamin D3) tablet/capsule Given 12/31/2021 8:16 AM ONCOLOGY RN 25 mcg D5W infusion 10-250 mL/hr, intravenous, [...] 5 mg (VALIUM) Given 12/31/2021 12:31 PM ONCOLOGY RN 5 mg 5 mg, oral, 4 times daily PRN, muscle spasms, Starting on Tue12/30/21 at 2243 Given 12/31/2021 1:59 AM ONCOLOGY RN 5 mg diphenhydrAMINE capsule 25 mg (BENADRYL) 25 mg, oral, Daily PRN, itching, Starting on Tue 2 at 0854 diphenhydrAMINE capsule 75 mg (BENADRYL) Given 01/01/2022 8:49 AM ONCOLOGY RN 75 mg 75 mg, oral, Bedtime PRN, sleep, Starting on Tue12/30/21 at 1715 FLUoxetine capsule 80 mg (PROzac) Given 01/01/2022 8:34 AM ONCOLOGY RN 80 mg 80 mg, oral, Daily, First dose on Tue12/31/21 at 0900, FLUoxetine orderable was interchanged for FLUoxetine tablet/capsule Given 12/31/2021 8:16 AM ONCOLOGY RN 80 mg fluticasone furoate 100 mcg/actuation Given 01/01/2022 8:[address] 2 puffs inhaler 2 puff (ARNUITY ELLIPTA) 2 puff, inhalation, 2 times daily, First dose on Tue12/30/21 at 2100, fluticasone furoate 100 mcg was interchanged for fluticasone MDI 110 mcg Given 12/31/2021 9:04 PM ONCOLOGY RN 2 puffs Given 12/31/2021 8:17 AM ONCOLOGY RN 2 puffs granisetron (PF) injection 1 mg (KYTRIL) Given 12/30/2021 3:57 PM ONCOLOGY RN 1 mg 1 mg, intravenous, Once as needed, nausea, vomiting, Starting on Tue12/30/21 at 1546, For 1 dose, PACU (only), If patient does not respond to ondansetron or haloperidol. (order of antiemetic administration - ondansetron then haloperidol then granisetron) haloperidol lactate injection 1 mg (HALD OL) Given 12/30/2021 4:31 PM ONCOLOGY RN 1 mg 1 mg, intravenous, Every 6 hours PRN, nausea, vomiting, Starting on Tue12/30/21 at 1546, For 48 hours, PACU (only), Total of 3 doses in 24 hour period. RASS must be -2 or higher to administer. If nausea and vomiting persists, move to granisteron. (order of antiemetic administration - ondansetron then haloperidol then granisetron) heparin PF flush syringe 50-150 Units 50-150 Units, intravenous, Once as neede d, line care, 50 units (5 mL) to each lumen of non-valved catheters only, Starting on Tue01/01/22 a t 0817, For 1 dose HYDROmorphone (PF) injection 0.2 mg Given 12/30/2021 4:17 PM ONCOLOGY RN 0.2 mg (DILAUDID) 0.2 mg, intravenous, Every 5 min PRN, moderate pain or score 4-6 of 10, severe pain or score 7-10 of 10, Starting on Tue12/30/21 at 1546, PACU (only), Up to maximum total dose of 2 mg Given 12/30/2021 4:07 PM ONCOLOGY RN 0.2 mg Given 12/30/2021 3:55 PM ONCOLOGY RN 0.2 mg HYDROmorphone (PF) injection 0.4 mg Given 01/01/2022 4:56 AM ONCOLOGY RN 0.4 mg (DILAUDID) 0.4 mg, intravenous, Every 2 hour PRN, severe pain or score 7-10 of 10, Starting on Tue12/30/21 at 1711, For 5 doses, May administer if pain is greater than 7 after scheduled and PRN regimen exhausted. If pain remains greater than 7, notify primary service. Given 12/31/2021 11:35 AM ONCOLOGY RN 0.4 mg Given 12/31/2021 4:14 AM ONCOLOGY RN 0.4 mg ipratropium-albuteroL 0.5-2.5 mg/3 mL nebulizer Given 01/01/2022 3:15 AM ONCOLOGY RN 3 mL solution 3 mL (DUONEB) 3 mL, nebulization, 4 times daily PRN, shortness of breath, wheezing, Starting on Tue12/30/21 at 1711 ketamine injection 10 mg (KETALAR) Given 12/30/2021 12:38 PM ONCOLOGY RN 10 mg 10 mg, intravenous, Once, On Tue12/30/21 at 1300, For 1 dose, Pre-Op lactated ringers Rate/Dose Change 01/01/2022 1:00 AM ONCOLOGY RN 20 mL/hr 20 mL/hr 75 mL/hr, intravenous, Continuous, Starting on Tue12/30/21 at 1715, Until patient has 500cc po intake New Bag 12/31/2021 11:46 PM ONCOLOGY RN 75 mL/hr 75 mL/hr Rate/Dose Change 12/31/2021 3:55 AM ONCOLOGY RN 20 mL/hr 20 mL/hr lactated ringers Continued from OR 12/30/2021 4:00 PM ONCOLOGY RN 75 mL/hr 75 mL/hr 75 mL/hr, intravenous, Continuous, Starting on Tue12/30/21 at 1600, PACU & Post-Op lamoTRIgine tablet 200 mg (LaMICtaL) Given 01/01/2022 8:34 AM ONCOLOGY RN 200 mg 200 mg, oral, 2 times daily, First dose on Tue12/30/21 at 2100 Given 12/31/2021 8:56 PM ONCOLOGY RN 200 mg Given 12/31/2021 8:16 AM ONCOLOGY RN 200 mg midazolam (PF) injection 1 mg (VERSED) Given 12/30/2021 12:38 PM ONCOLOGY RN 2 mg 1 mg, intravenous, Every 2 min PRN, sedation, RASS 0, Starting on Tue12/30/21 at 1201, [...] ondansetron (PF) injection 4 mg (ZOFRAN) Given 01/01/2022 1:16 AM ONCOLOGY RN 4 mg 4 mg, intravenous, Every 6 hours PRN, nausea, vomiting, Starting on Tue12/30/21 at 1711, For 48 hours, Reassess for nausea or vomiting after at least 10 minutes. If nausea or vomiting persists administer next ordered antiemetic medications (order for antiemetic medication administration ondansetron then haloperidol then promethazine). Given 12/31/2021 8:16 AM ONCOLOGY RN 4 mg oxyCODONE 12 hr tablet 20 mg (OxyCONTIN) Given 12/30/2021 12:35 PM ONCOLOGY RN 20 mg 20 mg, oral, Once, On Tue12/30/21 at 1300, For 1 dose, Pre-Op, Swallow whole. Do NOT crush, chew, or split tablet. oxyCODONE IR tablet 10 mg (ROXICODONE) Given 12/31/2021 10:43 AM ONCOLOGY RN 10 mg 10 mg, oral, Every 4 hours PRN, severe pain or score 7-10 of 10, Starting on Tue12/30/21 at 1536 Given 12/31/2021 6:19 AM ONCOLOGY RN 10 mg Given 12/31/2021 12:22 AM ONCOLOGY RN 10 mg oxyCODONE IR tablet 10 mg (ROXICODONE) Given 12/31/2021 2:21 PM ONCOLOGY RN 10 mg 10 mg, oral, Every 4 hours PRN, severe pain or score 7-10 of 10, Starting on Tue12/31/21 at 1415 oxyCODONE IR tablet 10 mg (ROXICODONE) Given 01/01/2022 2:38 PM ONCOLOGY RN 10 mg 10 mg, oral, Every 3 hours PRN, severe pain or score 7-10 of 10, Starting on Tue12/31/21 at 1745 Given 01/01/2022 11:35 AM ONCOLOGY RN 10 mg Given 01/01/2022 7:07 AM ONCOLOGY RN 10 mg oxyCODONE IR tablet 5 mg (ROXICODONE) 5 mg, oral, Every 3 hours PRN, moderate pain or score 4-6 of 10, Starting on Tue12/31/21 at 1745, If patient is >75 consider changing to 2.5-5mg scale pantoprazole DR tablet 40 mg (PROTONIX) Given 01/01/2022 3:46 PM ONCOLOGY RN 40 mg 40 mg, oral, 2 times daily before breakfast and dinner, First dose on Tue12/31/21 at 0700, pantoprazole 40 mg oral twice daily was interchanged for esomeprazole 20 or 40 mg oral twice daily Swallow whole. Do NOT crush, chew, or split tablet. Given 01/01/2022 6:29 AM ONCOLOGY RN 40 mg Given 12/31/2021 4:47 PM ONCOLOGY RN 40 mg pregabalin capsule 600 mg (LYRICA) Given 01/01/2022 8:34 AM ONCOLOGY RN 600 mg 600 mg, oral, 2 times daily, First dose on Tue12/30/21 at 2100 Given 12/31/2021 8:56 PM ONCOLOGY RN 600 mg Given 12/31/2021 8:15 AM ONCOLOGY RN 600 mg QUEtiapine tablet 50 mg (SEROquel) Given 12/31/2021 8:57 PM ONCOLOGY RN 50 mg 50 mg, oral, Daily at bedtime, First dose on Tue12/30/21 at 2100 Given 12/30/2021 9:55 PM ONCOLOGY RN 50 mg scopolamine base 1 mg Medication Applied 12/30/2021 12:02 PM 1 patch Behind Left Ear over 3 days 1 patch ONCOLOGY RN (TRANSDERM SCOP) 1 patch, transdermal, Administer over 72 Hours, Once as needed, nausea and vomiting, Starting on Tue12/30/21 at 1201, For 1 dose, Pre-Op, Contains 1.5 mg to deliver 1 mg/72 hours. sennosides-docusate sodium 8.6-50 mg per Given 01/01/2022 8:35 A M ONCOLOGY RN 1 tablet tablet 1 tablet (SENOKOT-S) 1 tablet, oral, 2 times daily, First dose on Tue12/30/21 at 2100, Do not give if patient has diarrhea. Given 12/31/2021 8:57 PM ONCOLOGY RN 1 tablet Given 12/31/2021 8:16 AM ONCOLOGY RN 1 tablet sodium chloride 0.9 % injection [...] injection 3 mL Given 12/31/2021 8:18 AM ONCOLOGY RN 3 mL 3 mL, intravenous, Every 12 hours scheduled, First dose on Tue12/30/21 at 2100, PACU & Post-Op, Peripheral Intravenous Catheter and Rapid Infusion Catheter, when no infusion to maintain patency Given 12/30/2021 9:53 PM ONCOLOGY RN 3 mL zonisamide capsule 300 mg (ZONEGRAN) Given 01/01/2022 8:35 AM ONCOLOGY RN 300 mg 300 mg, oral, 2 times daily, First dose on Tue12/30/21 at 2100, Swallow whole. Do NOT crush, chew or open capsule. Given 12/31/2021 8:57 PM ONCOLOGY RN 300 mg Given 12/31/2021 8:16 AM ONCOLOGY RN 300 mg documented in this encounter Active and Recently Administered Medications Times are shown in ONCOLOGY RN. Scheduled Medication Order 12/30/2021 12/31/2021 01/01/2022 acetaminophen tablet 1,000 mg (TYLENOL) (COMPLETED) 10 29 (Given - Provider: Manda Barnett RBetsy) 1,000 mg, oral, Once, On Tue12/30/21 at 1215, For 1 dose, Pre-Op acetaminophen tablet 1,000 mg (TYLENOL) 1828 (Given - Provider: Ezequiel Hernandez RRebekah.) 0007 (Given - Provider: Viktoriya Givens RBrittonN.)0619 (Given - Provider: Viktoriya Givens R.N.)1135 (Given - Provider: Maci Gonzalez R.N.)1738 (Given - Provider: Fanny Sifuentes RBrittonNBritton)2351 (Given - Provider: Jonny PérezS.Milad, R.N.) 0628 (Given - Provider: Viktoriya Givens RRebekah.)1136 (Given - Provider: Corrie Toscano R.NBritton) 1,000 mg, oral, Every 6 hours, First dose on Tue12/30/21 at 1800 atorvastatin tablet 80 mg (LIPITOR) 2155 (Given - Prov ider: Ezequiel Hernandez RBrittonNBritton) 2056 (Given - Provider: Fanny Sifuentes R.N.) 80 mg, oral, Daily at bedtime, First dose on Tue12/30/21 at 2100 buPROPion XL 24 hr tablet 150 mg (WELLBUTRIN XL) 0816 (Given - Provider: Maci Gonzalez RRebekah.) 0835 (Given - Provider: Corrie fall R.NBritton) 150 mg, oral, Every morning, First dose on Tue12/31/21 at 0900, Swallow whole. Do NOT crush, chew, or split tablet. ceFAZolin in dextrose (iso-os) IVPB 2 g (ANCEF) (CANCE LED) 2154 (New Bag - Provider: Ezequiel Hernandez RBrittonN.) 0636 (New Bag - Provider: Viktoriya Givens RBrittonN.)1421 (New Bag - Provider: Maci Gonzalez R.N.)2232 (New Bag - Provider: Fanny Sifuentes RBrittonN.) 0627 (New Bag - Provider: Viktoriya dorado R.N.) 2 g, intravenous, at 200 mL/hr, [...] 1419 (Given - Provider: Emre Rodriguez APRN, GRAIN COMBINE DRIVER) 2,000 mg (rounded from 1,747.5 mg = [...] 1438 (New Bag - Provider: Corrie Toscano R.Milad) 2 g, intravenous, at 200 mL/hr, Administ er over 15 Minutes, Daily before lunch, First dose on Tue01/01/22 at 1345, Drug Monitoring Program: Pharmacist to adjust medication dosing based on indication and drug clearance factors., Indications: Bone and/or joint infectio n cetirizine tablet 10 mg (ZyrTEC) 2152 (Given - Provide r: Ezequiel Hernandez R.N.) 08 (Given - Provider: Maci Gonzalez R.N.)2056 (Given - Provider: Fanny Sifuentes R.N.) 0835 (Given - Provider: Sharifa LovelaceNBritton) 10 mg, oral, 2 times daily, First dose o n Tue12/30/21 at 2100, Drug Monitoring Program: Pharmacist to adjust medication dosing based on indication and drug clearance factors. cholecalciferol (vitamin D3) tablet 25 mcg 815 (Given - Provider: Maci Gonzalez R.N.) 0835 (Given - Provider: Corrie fall R.N.) 25 mcg, oral, Daily, First dose on Tue at 0900, cholecalciferol (vitamin D3) orderable was interchanged for cholecalciferol (vitamin D3) tablet/capsule FLUoxetine capsule 80 mg (PROzac) 815 ( Given - Provider: Maci Gonzalez R.N.) 0834 (Given - Provider: Sharifa LovelaceNBritton) 80 mg, oral, Daily, First dose on 02/16 at 0900, FLUoxetine orderable was interchanged for FLUoxetine tablet/capsule fluticasone furoate 100 mcg/actuation inhaler 2 puff ( ARNUITY ELLIPTA) 2155 (Given - Provider: Ezequiel Hernandez R.N.) 816 (Given - Provider: Maci Gonzalez R.N.)2103 (Given - Provider: Fanny Sifuentes R.N.) 0836 (Given - Provider: Corrie Toscano R.N.) 2 puff, inhalation, 2 times daily, First dose on Tue12/30/21 at 2100, fluticasone furoate 100 mcg was interchanged for fluticasone MDI 110 mcg ketamine injection 10 mg (KETALAR) (COMPLETED) 1238 (G sheltonen - Provider: Manda Barnett R.N.) 10 mg, intravenous, Once, On Tue12/30/21 at 1300, For 1 dose, Pre -Op lamoTRIgine tablet 200 mg (LaMICtaL) 2154 (Given - Pro vider: Ezequiel Hernandez R.N.) 0816 (Given - Provider: Maci Gonzalez R.N.)2055 (Given - Provider: Fanny Sifuentes R.N.) 0834 (Given - Provider: Corrie fall RBetsy) 200 mg, oral, 2 times daily, First [...] 12 hr tablet 20 mg (OxyCONTIN) (COMPLETED) (Given - Provider: Manda Barnett R.N.) 20 [...] R.N.) 0834 (Given - Provider: Corrie fall RBetsy) 600 mg, oral, 2 times daily, First dose on Tue12/30/21 at 2100 QUEtiapine tablet 50 mg (SEROquel) 2154 (Given - Provi marquis: Ezequiel Hernandez R.N.) 2056 (Given - Provider: Fanny Sifuentes R.N.) 50 mg, oral, Daily at bedtime, First dose on Tue12/30/21 at 2100 sennosides-docusate sodium 8.6-50 mg per tablet 1 tabl et (SENOKOT-S) 2154 (Given - Provider: Ezequiel Hernandez R.N.) 08 (Given - Provider: Maci Gonzalez R.N.)2056 (Given - Provider: Fanny Sifuentes R.N.) 08 (Given - Provider: Corrie Toscano R.N.) 1 tablet, oral, 2 times daily, [...] sodium chloride 0.9 % injection 3 mL 2152 (Given - Pro vider: Ezequiel Hernandez R.N.) 0818 (Given - Provider: Maci Gonzalez R.N.)2103 (Not Given - Provider: Fanny Sifuentes R.N. [...] 1446 (Given - Provider: Emre Rodriguez APRN, CRNA)1550 (Anesthesia Volume Adjustment - Provider: Emre Rodriguez [...] dropping tourniquet zonisamide capsule 300 mg (ZONEGRAN) 5 (Given - Pro vider: Ezequiel Hernandez R.N.) 0816 (Given - Provider: Maci Gonzalez R.N.)7 (Given - Provider: Fanny Sifuentes R.N.) 0835 (Given - Provider: Corrie fall R.N.) 300 mg, oral, 2 times daily, First dose on Tue12/30/21 at 2100, Swallow whole. Do NOT crush, chew or open capsule. Continuous Medication Order 12/30/2021 12/31/2021 01/01/2022 bupivacaine PF 0.2 % 550 mL in NaCl 0.9% On-Q pain pump (CB004) 1515 (New Bag - Provider: Elvira Duncan R.N.) 6 mL/hr, nerve catheter, Continuous, Sta rting on Tue01/01/22 at 1500, PACU & Post-Op, Location: Nerve Catheter Location, Nerve Catheter Location: Interscalene, Device: On-Q Pump bupivacaine PF 0.2 % in NaCl 0.9% 341 mL infusion (LIZBET DRIVER) 1549 (New Bag - Provider: Conchita Carmen R.N.) 0011 (Rate/Dose Verify - Provider: Kem Givens R.N.) 0100 (Rate/Dose Verify - Provider: Kem Givens RBrittonNBritton) 6 mL/hr, nerve catheter, Continuous, Sta rting [...] Viktoriya Givens R.N. - Comment: oral intake >500cc)2346 (New Bag - Provider: Leticia Pérez, R.N.) 0100 (Rate/Dose Change - Provider: Kem Givens RBrittonN. - Comment: adequate oral intake) 75 mL/hr, intravenous, Continuous, Start ing on Tue12/30/21 at 1715, Until patient has 500cc po intake lactated ringers 1600 (Continued from OR - Provider: Adam Carmen RBrittonNBritton) 75 mL/hr, intravenous, Continuous, Start ing on Tue12/30/21 at 1600, PACU & Post-Op PRN Medication Order 12/30/2021 12/31/2021 01/01/2022 albuterol nebulizer solution 2.5 mg 1644 (Given - Provider: Fanny Sifuentes R.NBritton) 2.5 mg, nebulization, Every 6 hours PRN, wheezing, Starting on Tue12/30/21 at 1711, Albuterol nebs were interchanged for albuterol/levalbuterol MDI (same frequency) benzocaine-menthoL 15-3.6 mg per lozenge 1 lozenge (CEPACOL) 1 lozenge, oral, As needed, sore throat, Starting on Tue12/30/21 at 1711 benzonatate capsule 100 mg (TESSALGABBY PERRIN) 1739 (Given - Provider: Fanny Sifuentes R.N.) [...] (TUMS) 2114 (Given - Provider: Fanny Sifuentes R.N.)2345 (Given - Provider: Leticia Pérez, R.N.) 400 mg of calcium, oral, Every 2 hour IN N, indigestion, Starting on Tue12/30/21 at 1711, Doses listed are in mg of elemental calcium. Take with food. 500 mg calcium carbonate contains 200 mg of elemental calcium. carboxymethylcellulose 0.5 % ophthalmic solution 2 drop (REF RESH PLUS) 0023 (Given - Provider: Viktoriya Givens RBrittonN.)1231 (Given - Provider: Maci Gonzalez RBrittonN.) 0115 (Given - Provider: Viktoriya Givens RBrittonN.) 2 drop, both eyes, 4 times daily [...] gentamicin powder (for bone cement) (CANCELED) 1440 (Geronimo oleary - Provider: Cyrus Polk M.D.) As needed, Starting on Tue12/30/21 at 1440, Intra-Op granisetron (PF) injection 1 mg (KYTRIL) (COMPLETED) 1 557 (Given - Provider: Conchita Carmen R.N.) 1 mg, intravenous, Once as needed, nause [...] ED) 1555 (Given - Provider: Conchita Carmen, RBrittonN.)1607 (Given - Provider: Conchita Carmen R.N.)1617 (Given - Provider: Sharifa DarlingNBritton) 0.2 mg, intravenous, Every 5 min PRN, mo derate pain or score 4-6 of 10, severe pain or score 7-10 of 10, Starting on Tue12/30/21 at 1546, PACU (only), Up to maximum total dose of 2 mg HYDROmorphone (PF) injection 0.4 mg (DILAUDID) 0159 (Given - Provider: Viktoriya Givens RRebekah.)0414 (Given - Provider: Viktoriya Givens R.N.)1135 (Given - Provider: Maci Gonzalez RBrittonN.) 0456 (Given - Provider: Sharifa ConcepcionN.) 0.4 mg, intravenous, Every 2 hour PRN, s evere pain or score 7-10 of 10, Starting on Tue12/30/21 at 1711, For 5 doses, May administer if pain is greater than 7 after scheduled and PRN regimen exhausted. I f pain remains greater than 7, notify primary service. ipratropium-albuteroL 0.5-2.5 mg/3 mL nebulizer solution 3 mL (D UONEB) 0315 (Given - Provider: Viktoriya Givens RBrittonNBritton) 3 mL, nebulization, 4 times daily PRN, [...] (CANCELED) 1238 (Given - Provider: Manda Barnett RBrittonNBritton) 1 mg, intravenous, Every 2 min PRN, [...] (ZOFRAN) 0816 (Given - Provider: Maci Gonzalez RBrittonN.) 0116 (Given - Provider: Viktoriya Givens R.N.) [...] (CANCELED) 1999 (Given - Provider: Ezequiel Hernandez R.N.) 0022 (Given - Provider: Viktoriya Givens R.N.)0619 [...] 7-10 of 10, Starting on Tue12/31/21 at 1415 oxyCODONE IR tablet 10 mg (ROXICODONE)(Linked Group 1) 173 (Given - Provider: Fanny Sifuentes R.N.)2053 (Given - Provider: Sharifa KeenN.)235 (Given - Provider: Rafal Waller, M.S.N., R.N.) 0303 (Given - Provider: Viktoriya Givens R.N.)0707 (Given - Provider: Viktoriya Givens R.N.)1135 (Given - Provider: Corrie Toscano RBrittonNBritton)1438 (Given - Provider: Sharifa CanasNBritton) 10 mg, oral, Every 3 hours PRN, severe p ain or score 7-10 of 10, Starting on Tue12/31/21 at 1745 oxyCODONE IR tablet 5 mg (ROXICODONE)(Linked Group 1) 1739 (See Alternative - Provider: Fanny Sifuentes R.N.)2053 (See Alternative - Provider: Fanny Sifuentes R.N.)235 (See Alternative - Provider: Rafal Waller, M.S.N., R.N.) 0303 (See Alternative - Provider: Viktoriya Givens R.N.)0707 (See Alternative - Provider: Viktoriya Givens R.N.)1135 (See Alternative - Provider: Corrie Toscano R.N.)1438 (See Alternative - Provider: Corrie Toscano R.N.) [...] over 3 days 1 patch (TRANSDERM S HEALTH INSURANCE SPECIALIST) (CANCELED) 1202 (Medication Applied - Provider: Manad Barnett R.N.) 0110 (Medication Removed - Provider: [...] Cyrus bales M.D.) As needed, Starting on Tue12/30/21 at 1440, Intra-Op Linked Groups Order Group [...] documented as of this encounter Care Teams Form Press Operator Relationship Specialty Start Date End Date Elsewhere, Pcp PCP - General Internal Medicine 12/25/21 documented as of this encounter
--- OUTSIDE RECORDS SUMMARY | 2022-07-06 14:51 | XMS_ITS | Encounter Summary ---
:1965 Author Organization [facility] Address [address] [place] [id number] Care Team Providers Name Role Phone Unavailable Primary Care Provider Unavailable Reason for Visit Reason Comments Nicotine Dependence Encounter Details Date Type Department Care Team Description 07/30/2021 Clinical Communication Department of [facility], Carolyn Mccarthy cotine Dependence Nicotine M.S., Dependence, C.T.T.S., [facility] in [address] [place] [id number] [place], [place] [phone] (Work) [phone] Social History Tobacco Use Types Packs/Day Years [...] or relatives? How often do you attend buddhism or Patient refused 2021 shinto services? Do you belong to any clubs or No 05/17/2022 organizations such as buddhism groups, unions, fraternal or athletic groups, or [...]
--- OUTSIDE RECORDS SUMMARY | 2022-07-06 14:51 | XMS_ITS | Encounter Summary ---
:1965 Author Organization [facility] Address [address] [place] [id number] Care Team Providers Name Role Phone Elsewhere, Pcp Primary Care Provider Unavailable Reason for Visit Reason Comments Pre-op Exam Outpatient (Routine) - Closed Specialty Diagnoses / Procedures Referred By Contact Refer red To Contact Orthopedic Surgery Diagnoses Preoperative Exam Painful Total Joint Arthroplasty Initial (HCC) Alfredo Herrera [facility] [address] [place] [id number] Referral ID Status Reason Start Date Expiration Date Visits Requ ested Visits Authorized [id number] Closed 10/13/2021 10/13/2022 1 1 Encounter Details Date Type Department Care Team Description 12/29/2021 Office Visit Department of Cyrus Polk Shoulde r Left (Primary Dx); Orthopedic Surgery in [place] Preoperative Exam; [place], [place] [address] [place] [address] Painful Total Joint Arthroplasty Initial ([facility]) [address] [place] [phone] Social History Tobacco Use Types Packs/Day Years [...] or relatives? How often do you attend baptism or Patient refused 2021 uatsdin services? Do you belong to any clubs or No 05/17/2022 organizations such as baptism groups, unions, fraternal or athletic groups, or [...] encounter H&P Notes Cyrus Polk M.D. - 12/29/2021 11:30 AM CST SUBJECTIVE Angie Mosquera is a pleasant 56 y.o. female who returns today for evaluation of left shoulder pain. They note continued significant shoulder pain. PHYSICAL EXAMINATION General: Patient is in no acute distress. Shoulder ROM: ?? Active elevation is 50 ?? Passive elevation is 60 ?? External rotation to 0 ?? Internal rotation to Iliac crest Strength: ?? Flexion 4 ?? Abduction 3 ?? External rotation 2+ ?? Internal rotation 2+ Patient has pain at the end range of motion. Previous incision is well healed. There is mild deficiency of the anterolateral deltoid. 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 We discussed operative and non-operative measures. We discussed risks, benefits, and alternatives of attempted resection of infected shoulder arthroplasty with the patient. She understands that all of the components may not be able to be removed. The patient does understand the possibility of having positive cultures. The patient also does understand there may be such significant destruction of [...] may involve the use of a medical technologist made by a company [employer] I or one of my partners have collaborated to design, develop, or improve orthopedic implants, instruments, or products. Both the [facility] and the individual surgeons involved receive royalty payments from the use of those specific devices at other institutions, but no royalties or any other payments are paid for the use of those devices with any [facility] patient. The clinical rationale for the use of those devices as well as the availability and applicability of alternative devices was reviewed. He understands that the final decision for the use of a specific medical technologist often is made at the time of surgery. All of his questions were answered; he understands and agrees with my approach to device selection and wants to proceed. W OUT CLERK documented in this encounter Plan of Treatment Not on filedocumented as of this encounter Visit Diagnoses Diagnosis Pain Shoulder Left - Primary Preoperative Exam Painful Total Joint Arthroplasty Initial (HCC) documented in this encounter Additional Health Concerns Infection Onset Date Last Indicated Resolved Time COVID19 Pending 12/29/2021 12/29/2021 12/29/2021 4:20 PM THROW OUT CLERK Assessment Noted Time PHQ-9 Depression Total Score: 16 02/11/2021 12:00 AM C DT documented as of this encounter Care Teams Underwriting Sales Representative Relationship Specialty Start Date End Date Elsewhere, Pcp PCP - General Internal Medicine 12/25/21 documented as of this encounter
--- OUTSIDE RECORDS SUMMARY | 2022-07-06 14:51 | XMS_ITS | Encounter Summary ---
:1965 Author Organization [facility] Address [address] [place] [id number] Care Team Providers Name Role Phone Unavailable Primary Care Provider Unavailable Reason for Referral MRI/CAT/PET Scan (Routine) - Closed Specialty Diagnoses / Procedures Referred By Contact Refer red To Contact Radiology Diagnoses Painful Total Joint Arthroplasty Initial ([facility]) [facility] [place] Procedures [facility] Shoulder Left without IV Contrast [facility] [address] [place] [phone] Referral ID Status Reason Start Date Expiration Date Visits Requ ested Visits Authorized [id number] Closed 09/07/2021 09/07/2022 1 1 Reason for Visit MRI/CAT/PET Scan (Routine) - Closed Specialty Diagnoses / Procedures Referred By Contact Refer red To Contact Radiology Diagnoses Painful Total Joint Arthroplasty Initial ([facility]) [facility]o Her[facility] [place] Procedures CT Shoulder Left without IV Contrast [facility] [address] [place] [phone] Referral ID Status Reason Start Date Expiration Date Visits Requ ested Visits Authorized [id number] Closed 09/07/2021 09/07/2022 1 1 Encounter Details Date Type Department Care Team Description 09/25/2021 Hospital Encounter Department of Alfredo Herrera Painful Total Joint Radiology in [place], [facility] Arthroplasty Initial [place], [address] [place] [address] ([facility]) [place], [place] [address] [place] [phone] [place], [place] [phone] (Work) [phone] Social History Tobacco Use Types Packs/Day Years [...] Sig Dispensed Refills Start Date End Date albuterol (PROVENTIL Inhale 2 puffs every 0 HFA,VENTOLIN HFA) 90 6 (six) hours as mcg/actuation inhaler needed for wheezing or shortness of breath. atorvastatin (LIPITOR) Take 1 tablet (80 mg [...] 125 mcg (5,000 Unit) every morning. tablet diazePAM (VALIUM) 10 mg Take 10 mg by mouth 2 0 0 02/14/2019 tablet (two) times a day as needed. esomeprazole (NexIUM) 40 Take 40 mg by [...] magnesium Take 1 tablet by 3 02/17/20 (500 mg) tablet mouth at bedtime. meclizine [...] 1 spray as needed. 5 mg THC ondansetron ODT Take 1 tablet by 0 01/16/2010 (ZOFRAN-ODT) 8 mg mouth 3 (three) times disintegrating tablet a day as needed for nausea. polyethylene glycol Take 17 g by mouth as 0 04/11 (MIRALAX) 17 gram/dose needed for oral powder constipation. pregabalin (LYRICA) 300 Take 600 mg by mouth 0 mg capsule 2 (two) times a day. QUEtiapine (SEROquel) 50 Take 50 mg by mouth 0 mg tablet at bedtime. tiZANidine (ZANAFLEX) 4 Take 4-8 mg by mouth 1 mg tablet every 8 (eight) hours as needed for muscle spasms. Muscle spasms valACYclovir (VALTREX) Take 500 mg by mouth 0 500 mg tablet daily. zonisamide (ZONEGRAN) Take 300 mg by mouth 8 01/27 100 mg capsule 2 (two) times a day. ARTHRITIS PAIN RELIEF, TAKE TWO TABLETS 6 019 01/01/2022 ACETAM, 650 mg ER tablet (1300MG) BY MOUTH EVERY EIGHT HOURS aspirin 325 mg tablet Take 1 tablet (325 mg 90 tablet 3 02/26/2022 total) by mouth daily. Banophen 25 mg capsule Take 75 mg by mouth 0 01/2702/26/2022 at bedtime. cyanocobalamin, vitamin Place 2,500 mcg under 3 [...] nasal spray hrs. as needed for cravings oxyCODONE (ROXICODONE) Take 10 mg by mouth every 4 (four) hours as needed for pain. Max 4 tablets/day 0 08/23/2020 01/01/20 22 10 mg IR tablet Takes daily documented as of this encounter Plan of Treatment Not on filedocumented as of this encounter Procedures Procedure Name Priority Date/Time Associated Comments Diagnosis CT SHOULDER LEFT RAD - Routine 09/25/2021 1:36 Painful Total Joint Results for this WITHOUT IV (most inpatients PM CDT Arthroplasty procedure a re in CONTRAST and all Initial (HCC) the results outpatients) section. documented in this encounter Results CT Shoulder Left without IV Contrast (09/25/2021 1:36 PM CDT) Anatomical Region Laterality Modality Shoulder, Upper Extremity, Musculoskeletal RST LOS, Left Computed Tomography Musculoskeletal ARZ LOS, Muskuloskeletal FLA LOS Specimen (Source) Anatomical Collection Method Collection Time Re ceived Time Location / / Volume Laterality 09/25/2021 2:07 PM CDT Impressions 09/25/2021 2:43 PM CDT Left reverse TSA. Slight lucency about the glenoid component suggestive of possible loosening, with infection unabl e to be excluded. Recommend correlation with scheduled shoulder ultrasound/aspir ation. Narrative 09/25/2021 2:43 PM CDT EXAM: ??CT SHOULDER LEFT WITHOUT IV CONTRAST posterior lateral 3D images were created on an independent workstation as ordered by the treating provider and reviewed by the radiologist to assist in treatment planning. COMPARISON: ??Left shoulder radiographs 09/23/2021 FINDINGS: ?? Left reverse TSA. As seen on prior radio graphs, slight lucency about the glenoid component, more pronounced superiorly. T he humeral component appears well-seated. Presumed resection of the distal left cl avicle. Moderate subscapularis fatty atrophy. Otherwise relatively preserved rotator cuff and deltoid muscle bulk. 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 Partially visualized postoperative changes cervica l spine. Several mildly prominent left axillary lymph nodes. Partially visualized postoperative de [place] s[place]os es of [place]-en-Y gastric bypass. Tiny nonobstructing left renal calculus. Procedure Note Deep Richardson M.D. - 09/25/2021For matting of this note might be different from the original. EXAM: CT SHOULDER LEFT WITHOUT IV CONTRA ST posterior lateral 3D images were created on an independent workstation as ordered by the treating provider and reviewed by the radiologist to assist in treatment planning. COMPARISON: Left shoulder radiographs FINDINGS: Left reverse TSA. As seen on prior radio graphs, slight lucency about the glenoid component, more pronounced superiorly. T he humeral component appears well-seated. Presumed resection of the distal left cl avicle. Moderate subscapularis fatty atrophy. Otherwise relatively preserved rotator cuff and deltoid muscle bulk. 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 Partially visualized postoperative changes cervica l spine. Several mildly prominent left axillary lymph nodes. Partially visualized postoperative de [place] es of [place]rell-en-Y gastric bypass. Tiny nonobstructing left renal calculus. IMPRESSION: Left reverse TSA. Slight lucency about t he glenoid component suggestive of possible loosening, with infection unabl e to be excluded. Recommend correlation with scheduled shoulder ultrasound/aspir ation. Alfredo Kamara IMG CT PROCEDURES documented in this encounter Visit Diagnoses Diagnosis Painful Total Joint Arthroplasty Initial (HCC) documented in this encounter Additional Health Concerns Assessment Noted Time PHQ-9 Depression Total Score: 16 02/11/2021 12:00 AM C DT documented as of this encounter
--- OUTSIDE RECORDS SUMMARY | 2022-07-06 14:51 | XMS_ITS | Encounter Summary ---
:1965 Author Organization [facility] Address [address] [place] [address] Care Team Providers Name Role Phone Unavailable Primary Care Provider Unavailable Reason for Referral Outpatient (Routine) - Closed Specialty Diagnoses / Procedures Referred By Contact Refer red To Contact Diagnoses Painful Total Joint Arthroplasty Initial (HCC) Alfredo Her[facility] [place] Procedures US Major Joint Aspiration and or Injection Left O.P.A[facility]. [address] [place] [address] Referral ID Status Reason Start Date Expiration Date Visits Requ ested Visits Authorized [id number] Closed 09/07/2021 09/07/2022 1 1 Outpatient (Routine) - Closed Specialty Diagnoses / Procedures Referred By Contact Refer red To Contact Diagnoses Painful Total Joint Arthroplasty Initial (HCC) Alfredo Herrera [place] Procedures US Musculoskeletal Shoulder Left O.P.A[facility]C. [address] [place] [address] Referral ID Status Reason Start Date Expiration Date Visits Requ ested Visits Authorized [id number] Closed 09/07/2021 09/07/2022 1 1 Reason for Visit Outpatient (Routine) - Closed Specialty Diagnoses / Procedures Referred By Contact Refer red To Contact Diagnoses Painful Total Joint Arthroplasty Initial (HCC) Alfredo Her[facility] [place] Procedures US Major Joint Aspiration and or Injection Left O.P.A.-C. [address] [place] [address] Referral ID Status Reason Start Date Expiration Date Visits Requ ested Visits Authorized [id number] Closed 09/07/2021 09/07/2022 1 1 Encounter Details Date Type Department Care Team Description 09/25/2021 Hospital Encounter Department of Alfredo Herrera Total Joint Radiology in A, [facility] Arthroplasty Initial [place], [facility] [address] [facility] [place] (HCC) [place], [place] [address] [facility] [address] [place], [place] [phone] (Work) [phone] Social History Tobacco Use Types Packs/Day Years [...] or relatives? How often do you attend amish or Patient refused 2021 mormon services? Do you belong to any clubs or No 05/17/2022 organizations such as amish groups, unions, fraternal or athletic groups, or [...] capsule Take 75 mg by mouth 0 /12/202002/26/2022 at bedtime. cyanocobalamin, vitamin Place 2,500 mcg [...] Procedure Name Priority Date/Time Associated Comments Diagnosis US MUSCULOSKELETAL RAD - Routine 09/25/2021 2:58 Painful Total Resu lts for SHOULDER LEFT (most inpatients PM CDT Joint Arthroplasty this procedure and all Initial (HCC) are in the outpatients) results section. US MAJOR JOINT RAD - Routine 09/25/2021 2:58 Painful Total Results for ASPIRATION AND OR (most inpatients PM CDT Joint Arthroplasty this procedure INJECTION LEFT and all Initial (HCC) are in the outpatients) results section. BROAD RANGE BACTERIA Routine 09/25/2021 1:48 Painful Total Res ults for PCR AND SEQUENCING PM CDT Joint Arthroplasty thi s procedure Initial (HCC) are in the results section. BACTERIAL CULTURE, Routine 09/25/2021 1:48 Painful Total Resul ts for AEROBIC + SUSC PM CDT Joint Arthroplasty this pr ocedure Initial ([facility]) are in the results section. CRYSTAL ID, SYNOVIAL Routine 09/25/2021 1:48 Painful Total Res ults for FL PM CDT Joint Arthroplasty this proc edure Initial ([facility]) are in the results section. CELL COUNT AND Routine 09/25/2021 1:48 Results fo r DIFFERENTIAL, BF PM CDT this proced ure are in the results section. MYCOBACTERIAL Routine 09/25/2021 1:48 Painful Total Results fo r CULTURE, V PM CDT Joint Arthroplasty this proc edure Initial (HCC) are in the results section. ACID FAST SMEAR FOR Routine 09/25/2021 1:48 Resul ts for MYCOBACTERIUM PM CDT this procedure are in the results section. GRAM STAIN Routine 09/25/2021 1:48 Painful Total Results for PM CDT Joint Arthroplasty this proc edure Initial (HCC) are in the results section. FUNGAL CULTURE, Routine 09/25/2021 1:48 Painful Total Results for ROUTINE PM CDT Joint Arthroplasty this proc edure Initial (HCC) are in the results section. BACTERIAL CULTURE, Routine 09/25/2021 1:48 Painful Total Resul ts for ANAEROBIC + SUSC PM CDT Joint Arthroplasty this procedure Initial (HCC) are in the results section. documented in this encounter Results US Major Joint Aspiration and or Injection Left (09/25/2021 2:58 PM CDT) Anatomical Region Laterality Modality Joint, Ultrasound RST LOS, Ultrasound ARZ LOS, Left Ultrasound, Ultrasound Procedure FLA LOS, Muskuloskeletal FLA LOS Specimen (Source) Anatomical Collection Method Collection Time Re ceived Time Location / / Volume Laterality 09/25/2021 3:38 PM CDT Impressions 09/25/2021 3:40 PM CDT Ultrasound-guided aspiration of left shoulder joint effusion. NR Narrative 09/25/2021 3:40 PM CDT EXAM: US MAJOR JOINT ASPIRATION AND OR INJECTION LEFT PREPROCEDURE: Patient seen and evaluated . Allergies, pertinent medications, and history reviewed. Discussed risks, benef its, alternatives for procedure, and obtained informed consent. Patient under stands information and questions answered. Immediately prior to starting the procedure, in the presence of the assisting personnel, procedural pause wa s conducted to verify correct patient identity and verification of procedure t o be performed, and as applicable, correct side and site, correct patient p osition, availability of implants, special equipment, or special requiremen ts, and all image and specimen identification data. The roles and respo nsibilities of care team members, residents, and fellows were discussed. TECHNIQUE: Sterile. 1% lidocaine for loc al anesthesia. Location: Left shoulder joint Needle size: 18-gauge Aspirated from joint: Approximately 3 mL elsa color fluid Complication: None. Blood loss: None. PATIENT INSTRUCTIONS: Patient may be dis missed from the radiology department when dismissal criteria met. POST-PROCEDURE DIAGNOSIS: Status post as piration of left shoulder joint effusion. Procedure Note Juana Fuentes M.D. - 09/25/2021Fo rmatting of this note might be different from the original. EXAM: US MAJOR JOINT ASPIRATION AND OR I NJECTION LEFT PREPROCEDURE: Patient seen and evaluated . Allergies, pertinent medications, and history reviewed. Discussed risks, benef its, alternatives for procedure, and obtained informed consent. Patient under stands information and questions answered. Immediately prior to starting the procedure, in the presence of the assisting personnel, procedural pause wa s conducted to verify correct patient identity and verification of procedure t o be performed, and as applicable, correct side and site, correct patient p osition, availability of implants, special equipment, or special requiremen ts, and all image and specimen identification data. The roles and respo nsibilities of care team members, residents, and fellows were discussed. TECHNIQUE: Sterile. 1% lidocaine for loc al anesthesia. Location: Left shoulder joint Needle size: 18-gauge Aspirated from joint: Approximately 3 mL elsa color fluid Complication: None. Blood loss: None. PATIENT INSTRUCTIONS: Patient may be dis missed from the radiology department when dismissal criteria met. POST-PROCEDURE DIAGNOSIS: Status post as piration of left shoulder joint effusion. IMPRESSION: Ultrasound-guided aspiration of left sydni ulder joint effusion. NR Alfredo Kamara IMGeronimo US PROCEDURES US Musculoskeletal Shoulder Left (09/25/2021 2:58 PM CDT) Anatomical Region Laterality Modality Upper Extremity, Ultrasound RST LOS, Left Ult rasound, Ultrasound Musculoskeletal ARZ LOS, Ultrasound ARZ LOS, Muskuloskeletal FLA LOS Specimen (Source) Anatomical Collection Method Collection Time Re ceived Time Location / / Volume Laterality 09/25/2021 3:25 PM CDT Impressions 09/25/2021 4:03 PM CDT 1. 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 Supraspinatus and infraspinatus tendons are intact. 2. An intact subscapularis tendon is not definitely visualized, raising suspicion for a torn subscapularis tendo n, however, this region was not optimally visualize and evaluated sonogr aphically due to limited range of motion and overlying artifact. 3. Fatty infiltration of the supraspinat us, infraspinatus and teres minor muscle as described above. 4. Findings suspicious for a small infra spinatus intramuscular tear with hematoma. Narrative 09/25/2021 4:03 PM CDT EXAM: US MUSCULOSKELETAL SHOULDER LEFT HISTORY: 56-year-old female with painful total shoulder joint arthroplasty. COMPARISON: Left shoulder radiographs da mary 09/23/2021. FINDINGS: Biceps tendon is visualized wi thin the groove. No joyce-tendon sheath fluid. Small to moderate subdeltoid burs al effusion. An intact subscapularis tendon is not definitely visualized, how ever, there is suboptimal visualization and evaluation of the subscapularis due to limited range of motion. Postoperative changes of reverse total s houlder arthroplasty. Supraspinatus and infraspinatus tendons are intact. Small amount of fluid within the glenohu meral joint. Mild fatty infiltration of the left supr aspinatus, mild to moderate patchy fatty infiltration of the infraspinatus and se maricruz fatty infiltration of the left teres minor muscle. Hypoechogenicity and architectural distortion within the left infraspinatus muscle, 1.8 x 1.1 cm is concerning for a small intramuscular tear with hematoma. Procedure Note Juana Fuentes M.D. - 09/25/2021Fo rmatting of this note might be different from the original. EXAM: US MUSCULOSKELETAL SHOULDER LEFT HISTORY: 56-year-old female with painful total shoulder joint arthroplasty. COMPARISON: Left shoulder radiographs [facility] 09/23/2021. FINDINGS: Biceps tendon is visualized wi thin the groove. No joyce-tendon sheath fluid. Small to moderate subdeltoid burs al effusion. An intact subscapularis tendon is not definitely visualized, how ever, there is suboptimal visualization and evaluation of the subscapularis due to limited range of motion. Postoperative changes of reverse total s houlder arthroplasty. Supraspinatus and infraspinatus tendons are intact. Small amount of fluid within the glenohu meral joint. Mild fatty infiltration of the left supr aspinatus, mild to moderate patchy fatty infiltration of the infraspinatus and se maricruz fatty infiltration of the left teres minor muscle. Hypoechogenicity and architectural distortion within the left infraspinatus muscle, 1.8 x 1.1 cm is concerning for a small intramuscular tear with hematoma. IMPRESSION: 1. Postoperative changes of reverse tota l shoulder arthroplasty. Supraspinatus and infraspinatus tendons are intact. 2. An intact subscapularis tendon is not definitely visualized, raising suspicion for a torn subscapularis tendo n, however, this region was not optimally visualize and evaluated sonogr aphically due to limited range of motion and overlying artifact. 3. Fatty infiltration of the supraspinat us, infraspinatus and teres minor muscle as described above. 4. Findings suspicious for a small infra spinatus intramuscular tear with hematoma. Alfredo Kamara IMG US PROCEDURES Cell Count and Differential, Body Fluid (09/25/2021 1:48 PM CDT) [facility] Method Time Signature Fluid Type Left 09/25/2021 DHPM Shoulder 4:50 PM CDT Gross Slightly 09/25/2021 DHPM Appearance bloody 4:50 PM CDT Total 71079 /mcL 09/25/2021 DHPM Nucleated 4:50 PM CDT Cells Comment: ----REFERENCE VALUE---- Synovial: <150 /mcL Peritoneal: <500 /mcL Pleural: <500 /mcL Pericardial: <500 /mcL ----ADDITIONAL INFORMATION---- This test has been modified from the man ufacturer's instructions. Its performance characteri stics were determined by [facility] in a manner co nsistent with CLIA requirements. This test has not bee n cleared or approved by the U.S. Food and Drug Admin istration. Comment SeeComment 09/25/2021 4:50 PM CDT DHPM Comment: Count approximate due to qualit y of specimen. Neutrophils 81 % 09/25/2021 4:53 PM CDT DHPM Comment: ----REFERENCE VALUE---- Synovial: <25% Peritoneal: <25% Pleural: <25% Pericardial: <25% Lymphocytes 6 Synovial <75% % 09/25/2021 4:53 PM DHP M CDT Monocytes/Macrophages 13 Synovial <70% % 09/25/2021 4 :53 PM DHPM CDT Comment No blasts or 09/25/2021 7:38 PM DHPM malignant cells CDT seen. Reviewed by: Priti 09/25/2021 7:38 PM DHPM CDT Specimen Anatomical Collection Method Collection Time Receive d Time (Source) Location / / Volume Laterality Fluid 09/25/2021 1:48 PM 3:27 CDT PM CDT Alfredo Kamara LAB BODY FLUIDS AND STOOLS O PATERABLES Performing Organization Address City/State/ZIP Code Phon e Number [facility] - [address] [place], [place] [address] [facility] [place] [address] [facility] [address] [facility] Acid Fast Smear For Mycobacterium (09/25/2021 1:48 PM CDT) [facility] Method Time Signature Acid Fast Smear Negative. 09/26/2021 DTL For Mycobacterium 2:58 PM CDT Specimen Anatomical Collection Method Collection Time Receive d Time (Source) Location / / Volume Laterality Synovial Fluid, 09/25/2021 1:48 PM 2020 3:42 Left Shoulder CDT PM CDT Comment: Specimen Source Site: Fluid Narrative [facility] - 09/26/2021 2:58 PM CDT Fungal and Mycobacteria specimens plated for culture, volume inadequate for optimal recovery. Alfredo Kamara LAB MICROBIOLOGY - GENERAL O RDERABLES Performing Organization Address City/State/ZIP Code Phon e Number [facility] - [address] [place], [place] [address] [place] [address] [place] [address] [address] [facility] Gram Stain (09/25/2021 1:48 PM CDT) Patholo Ansira Method Time Signature Gram Stain No organisms seen. 09/25/2021 DTL White blood cells, Many. 5:10 PM CDT Specimen Anatomical Collection Method Collection Time Receive d Time (Source) Location / / Volume Laterality Fluid (Synovial 09/25/2021 1:48 PM 2020 3:42 Fluid, Left CDT PM CDT Shoulder) Comment: Specimen Source Site: Fluid Alfredo Kamara LAB MICROBIOLOGY - GENERAL O RDERABLES Performing Organization Address City/State/ZIP Code Phon e Number [facility] - [address] [place], [place] [address] [facility] [place] [address] [facility] [address] (ABNORMAL) Bacterial Culture, Aerobic + Susc (09/25/2021 1:48 PM CDT) Component Value Ref Test Analysis Performed At Patholo gist Range Method Time Signature Bacterial STAPHYLOCOCCUS EPIDERMIDIS 09/30/2021 DT L Culture, One Stephens 2:35 PM CDT Aerobic + (A) Susc Comment: Semi-Urgent Result. Semi-Urgent This is a semi-urgent result [facility] - (BENITE[place]) [facility] S Specimen Anatomical Collection Method Collection Time Receive d Time (Source) Location / / Volume Laterality Fluid (Synovial 09/25/2021 1:48 PM 2020 3:42 Fluid, Left CDT PM CDT Shoulder) Comment: Specimen Source Site: Fluid Narrative [facility] - [facility] - 09/30/2021 2:35 PM CDT Fungal and Mycobacteria specimens plated for culture, volume inadequate for optimal recovery. Organism Antibiotic Method Susceptibility Staphylococcus epidermidis Oxacillin SUSCEPTIBILITY, SANDRA 0 .5 mcg/mL: Susceptible (MCG/ML) Comment: Use oxacillin interpretation to predict results for anti-staphylococcal beta-lac chen antibiotics (except ceftaroline). Staphylococcus Vancomycin SUSCEPTIBILITY, SANDRA 2 mcg/mL: Benitez sceptible epidermidis (MCG/ML) Staphylococcus Clindamycin SUSCEPTIBILITY, SANDRA <=0.5 mcg/mL : epidermidis (MCG/ML) Susceptible Staphylococcus Levofloxacin SUSCEPTIBILITY, SANDRA >4 mcg/mL: R [...] epidermidis (MCG/ML) Susceptible Staphylococcus Daptomycin SUSCEPTIBILITY, BP 1 mcg/mL: Danyell ceptible epidermidis (MCG/ML) Alfredo Kamara LAB MICROBIOLOGY - GENERAL O RDERABLES Performing Organization Address City/State/ZIP Code Phon e Number [facility] - [address] [place] [address] [place] [address] [address] Bacterial Culture, Anaerobic + Susc (09/25/2021 1:48 PM CDT) [facility] Method Time Signature Bacterial No growth 10/09/2021 DTL Culture, after 14 7:41 AM CRUSHED STONE GRADER Anaerobic + days of Susc incubation. Specimen Anatomical Collection Method Collection Time Receive d Time (Source) Location / / Volume Laterality Fluid (Synovial 09/25/2021 1:48 PM 2020 3:42 Fluid, Left CDT PM CDT Shoulder) Comment: Specimen Source Site: Fluid Narrative [facility] [place] - 10/09/2021 7:41 AM CRUSHED STONE [employer]ADER Fungal and Mycobacteria specimens plated for culture, volume inadequate for optimal recovery. Alfredo Kamara LAB MICROBIOLOGY - GENERAL O RDERASARAH Performing Organization Address City/[facility] Phon e Number [facility] - [id number] [place] [address] (ABNORMAL) Broad Range Bacteria PCR+Sequencing (09/25/2021 1:48 PM CDT) Component Value Ref Test Analysis [facility] Method Time Signature Broad Range This test was developed and its performance characteri stics 10/06/2021 DTL Bacteria determined by [facility] in a manner consistent with 1:24 PM CRUSHED STONE GRADER PCR+Sequencin CLIA requirements. This test has not been cleared or g approved by the U.S. Food and Drug Administration. (A) Broad Range STAPHYLOCOCCUS EPIDERMIDIS 10/06/2021 DTL Bacteria DNA detected 1:24 PM CRUSHED ST[employer]ADER PCR+Sequencin (A) g Comment: Semi-Urgent Result. Semi-Urgent This is a semi-urgent result [facility] - () [facility] Specimen Anatomical Collection Method Collection Time Receive d Time (Source) Location / / Volume Laterality Fluid (Synovial 09/25/2021 1:48 PM 2020 3:42 Fluid, Left CDT PM CDT Shoulder) Comment: Specimen Source Site: Fluid Narrative [facility] [place] - 10/06/2021 1:24 PM CRUSHED [employer]ER Fungal and Mycobacteria specimens plated for culture, volume inadequate for optimal recovery. Alfredo Kamara LAB MICROBIOLOGY - GENERAL O RDERABLES Performing Organization Address City/State/ZIP Code Phon e Number [facility] - [address] [place], [place] [address] [place], [place] [id number] [place] [address] Crystal Identification, Synovial Fluid (09/25/2021 1:48 PM CDT) Analysis Performed At Patho logist Time Signature Crystal ID, None seen None seen 09/25/2021 [facility] Synovial Fl 4:56 PM CDT Reviewed by: Tech 09/25/2021 [facility] 4:56 PM CDT Specimen Anatomical Collection Method Collection Time Receive d Time (Source) Location / / Volume Laterality Fluid (Synovial 09/25/2021 1:48 PM 2020 3:27 Fluid, Left CDT PM CDT Shoulder) Alfredo Kamara LAB BODY FLUIDS AND STOOLS O PATERASARAH Performing Organization Address City/[facility]/ZIP Code Phon e Number [facility] - [id number] [place] [address] Fungal Culture, Routine (09/25/2021 1:48 PM CDT) [facility] Method Time Signature Fungal No growth 10/20/2021 DT Culture, after 24 1:01 AM CRUSHED [employer]ONE GRADER Routine days of incubation. Specimen Anatomical Collection Method Collection Time Receive d Time (Source) Location / / Volume Laterality Fluid (Synovial 09/25/2021 1:48 PM 2020 3:42 Fluid, Left CDT PM CDT Shoulder) Comment: Specimen Source Site: Fluid Narrative [facility] - [facility] - 10/20/2021 1:01 AM CRUSHED [employer]ER Fungal and Mycobacteria specimens plated for culture, volume inadequate for optimal recovery. Alfredo Kamara LAB MICROBIOLOGY - GENERAL O RDERABLES Performing Organization Address City/[facility]/ZIP Code Phon e Number [facility] - [address] [place], [place] [address] [place] [address] Laboratories-[facility] [address] [facility] Mycobacterial Culture (09/25/2021 1:48 PM CDT) [facility] gist Method Time Signature Mycobacterial No growth 11/07/2021 DTL Culture after 42 1:03 AM CRUSHED STONE GRADER days of incubation . Specimen Anatomical Collection Method Collection Time Receive d Time (Source) Location / / Volume Laterality Fluid (Synovial 09/25/2021 1:48 PM 2020 3:42 Fluid, Left CDT PM CDT Shoulder) Comment: Specimen Source Site: Fluid Narrative [facility] - [facility] - 11/07/2021 1:03 AM CRUSHED STONE GRADER Fungal and Mycobacteria specimens plated for culture, volume inadequate for optimal recovery. Alfredo Kamara LAB MICROBIOLOGY - GENERAL O RDERABLES Performing Organization Address City/State/ZIP Code Phon e Number [address] [address] [place] [address] [facility]ly [facility] [address] [facility] documented in this encounter Visit Diagnoses Diagnosis Painful Total Joint Arthroplasty Initial (HCC) documented in this encounter Administered Medications Inactive Administered Medications - up to 3 most recent administrations Medication Order MAR Action Action Date Dose Rate Site lidocaine 10 mg/mL (1 %) injection Given 09/25/2021 2:48 PM CDT 5 mL (XYLOCAINE) Code/trauma/sedation medication, Starting on Tue09/25/21 at 1448 documented in this encounter Active and Recently Administered Medications Times are shown in CDT. PRN Medication Order 09/23/2021 09/24/2021 09/25/2021 lidocaine 10 mg/mL (1 %) injection (XYLOCAINE) (COMPLETED) 1448 (Given - Provider: Juana Fuentes M.D. - Comment: Left shoulder) Code/trauma/sedation medication, Starting on Tue09/25/21 at 144 8 documented in this encounter Additional Health Concerns Assessment Noted Time PHQ-9 Depression Total Score: 16 02/11/2021 12:00 AM C DT documented as of this encounter
--- OUTSIDE RECORDS SUMMARY | 2022-07-06 14:51 | XMS_ITS | Encounter Summary ---
:1965 Author Organization [facility] Address [address] [place] [address] Care Team Providers Name Role Phone Unavailable Primary Care Provider Unavailable Reason for Visit Reason Comments Communication results Encounter Details Date Type Department Care Team Description 10/05/2021 Clinical Communication Department of Rossy Polk Orthopedic Surgery Cyrus Souza M.D. (results) in [address] 200 [facility] [phone] Social History Tobacco Use Types Packs/Day Years [...] you attend anabaptist or Patient refused 2021 zoroastrianism services? Do [...] encounter Progress Notes Cyrus Polk M.D. - 10/05/2021 11:36 AM CST Underwent multiple operations elsewhere with aspiration positive for bacteria. The glenoid componentis possibly loose. I spoke to her on the telephone about the complex and difficult nature of the problem. She is young, multiple operations, now with the appearance of an infection. We did discuss risks, benefits, alternatives of attempted 2-stage procedure with her. She does wish to proceed. We will arrange a surgery date. She understands the complex and very difficult nature of her problem. Cyrus Polk M.D. 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 Thank you ICE PARTS DRIVER Telephone Encounter - Cyrus Polk M.D. - 10/05/2021 11:37 AM CST Dx: left infected shoulder arthroplasty Procedure: left resection shoulder arthroplasty UE82, NESHA, and see me Surgery date: December 30 Thank you ICE PARTS DRIVER Telephone Encounter - Radha Suh - 10/05/2021 11:18 AM CST Ms. Mosquera calls for results of labs, CT and aspiration results ( She is disappointment no one has reached out to her and that she had to call for these) Please call her with results to date ICE PARTS DRIVER documented in this encounter Plan of Treatment Not on filedocumented as of this encounter Visit Diagnoses Not on filedocumented in this encounter Additional Health Concerns Assessment Noted Time PHQ-9 Depression Total Score: 16 02/11/2021 12:00 AM C DT documented as of this encounter
--- OUTSIDE RECORDS SUMMARY | 2022-07-06 14:51 | XMS_ITS | Encounter Summary ---
:1965 Author Organization [facility] Address [address] [place] [address] Care Team Providers Name Role Phone Unavailable Primary Care Provider Unavailable Reason for Referral Outpatient (Routine) - Closed Specialty Diagnoses / Procedures Referred By Contact Refer red To Contact Anesthesiology Diagnoses Preoperative Exam Painful Total Joint Arthroplasty Initial (HCC) [facility] Akbar-Araceli [address] [place] [address] Referral ID Status Reason Start Date Expiration Date Visits Requ ested Visits Authorized [id number] Closed 10/13/2021 10/13/2022 1 1 ES INSPECTOR Outpatient (Routine) - Closed Specialty Diagnoses / Procedures Referred By Contact Refer red To Contact Orthopedic Surgery Diagnoses Preoperative Exam Painful Total Joint Arthroplasty Initial ([facility]) Alfredo Herrera [facility] Lebron.Fernando-CBritton 200 [place] [address] Referral ID Status Reason Start Date Expiration Date Visits Requ ested Visits Authorized [id number] Closed 10/13/2021 10/13/2022 1 1 ES INSPECTOR Reason for Visit Reason Comments pre op orders L verena Encounter Details Date Type Department Care Team Description 10/12/2021 Clinical Communication Department of Jam pre op orders ([facility] Lilian Alex) in [place] [address] [address] [place], [place] 200 [facility] [address] [place], [place] [phone] (Work) [phone] Social History Tobacco Use Types Packs/Day Years [...] you attend baptism or Patient refused 2021 holiness services? Do you belong to any clubs [...] Miscellaneous Notes Telephone Encounter - Sosa Laughlin R - 10/12/2021 4:55 PM CST Please sign orders for upcoming surgery, Thank you. Dx: left infected shoulder arthroplasty Procedure: left resection shoulder arthroplasty UE82, NESHA, and see me Surgery date: December 30 ES INSPECTOR documented in this encounter Plan of Treatment Scheduled Referrals Name Type Priority Associated Diagnoses Order S [facility] Orthopedic Surgery Outpatient Referral Routine Preoperat lalo Exam Expected: Pre Op (clinic) Painful Total Joint 12/29 Arthroplasty Initial (Approx imate), (HCC) Expires: 10/12/2024 Preoperative Outpatient Referral Routine Preoperative Exam Expected: Evaluation NESHA Painful Total Joint 2021 consult (clinic) Arthroplasty Initial (Ap proximate), (HCC) Expires: 10/12/2024 documented as of this encounter Results (ABNORMAL) Basic Metabolic Panel (12/29/2021 11:34 AM SCALES INSPECTOR) P athologist Signature Potassium, S 4.7 3.6 - 5.2 12/29/2021 DTL mmol/L 12:38 PM SCALES INSPECTOR Sodium, S 143 135 - 145 12/29/2021 DTL mmol/L 12:38 PM SCALES INSPECTOR Chloride, S 108 (H) 98 - 107 12/29/2021 DTL mmol/L 12:38 PM SCALES INSPECTOR Bicarbonate, S 24 22 - 29 12/29/2021 DTL mmol/L 12:38 PM SCALES INSPECTOR Anion Gap 11 7 - 15 12/29/2021 DTL 12:38 PM SCALES INSPECTOR BUN (Blood 15 6 - 21 12/29/2021 DTL Urea mg/dL 12:38 PM SCALES INSPECTOR Nitrogen), S Creatinine, S 0.83 0.59 - 12/29/2021 DTL 1.04 mg/dL 12:38 PM SCALES INSPECTOR eGFR-Non 78 >=60 12/29/2021 DTL Black/ mL/min/BSA 12:38 PM SCALES INSPECTOR Mal[place]ian Comment: ----ADDITIONAL INFORMATION---- Estimated GFR calculated using the 2009 CKD_EPI creatinine equation. eGFR-Black/ 90 >=60 mL/min/BSA 2021 12:38 PM SCALES INSPECTOR DTL Comment: ----ADDITIONAL INFORMATION---- Estimated GFR calculated using the 2009 CKD_EPI creatinine equation. Calcium, Total, S 9.1 8.6 - 10.0 mg/dL 12/29/2021 12:3 8 PM SCALES INSPECTOR DTL Glucose, S 90 70 - 140 mg/dL 12/29/2021 12:38 PM SCALES INSPECTOR DTL Specimen Anatomical Collection Method Collection Time Receive d Time (Source) Location / / Volume Laterality Blood (Blood, 12/29/2021 11:34 12/29/2021 Venous) AM SCALES INSPECTOR 12:13 PM SCALES INSPECTOR Alfredo Kamara LAB BLOOD ADD-ON Performing Organization Address City/[facility] Phon e Number [facility] - [address] [place] [address] [address] Type and Screen (with reflex Antibody ID) (12/29/2021 11:34 AM SCALES INSPECTOR) [facility] Method Time Signature ABORh A Neg Not applicable 12/29/2021 ETRM 12:59 PM SCALES INSPECTOR Antibody CANCELED 12/29/2021 ETRM Screen 12:59 PM SCALES INSPECTOR Comment: Result canceled by the ancerick y. Type & Screen Expiration 02/26/2022 23:59 12/29/19 22 12:59 PM SCALES INSPECTOR ETRM Testing Location [place] DEFAULT 12/29/2021 11:58 AM SCALES INSPECTOR ETRM Specimen Anatomical Collection Method Collection Time Receive d Time (Source) Location / / Volume Laterality Blood (Blood, 12/29/2021 11:34 12/29/2021 Venous) AM SCALES INSPECTOR 11:58 AM SCALES INSPECTOR Alfredo SchmidtCBritton LAB BLOOD BANK TEST ORDERABL ES Performing Organization Address City/[facility] Phon e Number [facility] - [address] [place] [address] [address] (ABNORMAL) CBC with Differential, Blood (12/29/2021 11:34 AM SCALES INSPECTOR) [facility] DotAlign Method Time Signature Hemoglobin 11.2 (L) 11.6 - 12/29/2021 DTL 15.0 g/dL 12:02 PM SCALES INSPECTOR Hematocrit 34.1 (L) 35.5 - 12/29/2021 DTL 44.9 % 12:02 PM SCALES INSPECTOR Erythrocytes 4.04 3.92 - 12/29/2021 DTL 5.13 12:02 PM SCALES INSPECTOR x10(12)/L MCV 84.4 78.2 - 12/29/2021 DTL 97.9 fL 12:02 PM SCALES INSPECTOR RBC Distrib Width 20.2 (H) 12.2 - 12/29/2021 DTL 16.1 % 12:02 PM SCALES INSPECTOR Platelet Count 324 157 - 371 12/29/2021 DTL x10(9)/L 12:02 PM SCALES INSPECTOR Leukocytes 5.1 3.4 - 9.6 12/29/2021 DTL x10(9)/L 12:02 PM SCALES INSPECTOR Neutrophils 3.08 1.56 - 12/29/2021 DTL 6.45 12:02 PM SCALES INSPECTOR x10(9)/L Lymphocytes 1.39 0.95 - 12/29/2021 DTL 3.07 12:02 PM SCALES INSPECTOR x10(9)/L Monocytes 0.43 0.26 - 12/29/2021 DTL 0.81 12:02 PM SCALES INSPECTOR x10(9)/L Eosinophils 0.17 0.03 - 12/29/2021 DTL 0.48 12:02 PM SCALES INSPECTOR x10(9)/L Basophils 0.05 0.01 - 12/29/2021 DTL 0.08 12:02 PM SCALES INSPECTOR x10(9)/L Specimen Anatomical Collection Method Collection Time Receive d Time (Source) Location / / Volume Laterality Blood (Blood, 12/29/2021 11:34 12/29/2021 Venous) AM SCALES INSPECTOR 11:54 AM SCALES INSPECTOR Alfredo Kamara LAB BLOOD ADD-ON Performing Organization Address City/State/ZIP Code Phon e Number [facility] - [address] [place], [place] [address] [place] [address] Laboratories-[facility] [address] SARS Coronavirus 2, Molecular Detection, PCR, Varies Asymptomatic (12/29/2021 11:11 AM SCALES INSPECTOR) [facility] Method Time Signature COVID-19, Swab, 12/29/2021 DTL PCR, Source Nasopharynx 4:19 PM SCALES INSPECTOR COVID-19, Undetected Undetected 12/29/2021 DTL PCR, Result 4:19 PM SCALES INSPECTOR Comment: SARS-CoV-2 RNA absent. This result does not rule out COVID-19 in the patient, as the sensitivity of the test depends o n the timing of the specimen collection and quality of the specimen. Result should be correlated with patient's history and clinical presentat ion. ----ADDITIONAL INFORMATION---- This RT-PCR test using the [employer] SARS-Co V-2 Assay ( Kinesio Capture) performed on the StarChase Two Module System has received Emergency Use Authorization (EUA) by the U.S. Food and Drug Administration, and is modified from the predatory animal trapper's instructions with a bridging study. Performance characteristics were verifie d by [facility] in a manner consistent with CLIA requirements. Visit the CDC website: https://www.cdc.g ov/coronavirus/ for the most recent guidelines on [facility] virus testing. Fact Sheet for Healthcare Providers: https://www.fda.gov/media/731995/downloa d Fact Sheet for Patients: https://www.fda.gov/media/153659/downloa d Specimen Anatomical Collection Method Collection Time Receive d Time (Source) Location / / Volume Laterality Varies 12/29/2021 11:11 12/29/2021 (Nasopharynx) AM SCALES INSPECTOR 12:03 PM SCALES INSPECTOR Alfredo Kamara LAB MICROBIOLOGY - GENERAL O RDERABLES Performing Organization Address City/State/ZIP Code Phon e Number [facility] - [address] [place], [place] [address] [place] [address] Laboratories-[facility] [address] DX Shoulder Left 2+ Views (12/29/2021 10:30 AM SCALES INSPECTOR) Anatomical Region Laterality Modality Upper Extremity, Shoulder, Musculoskeletal RST LOS, Left Digital Radiography Musculoskeletal ARZ LOS, Muskuloskeletal FLA LOS Specimen (Source) Anatomical Collection Method Collection Time Re ceived Time Location / / Volume Laterality 12/29/2021 10:53 AM SCALES INSPECTOR Impressions 12/29/2021 10:57 AM SCALES INSPECTOR Demineralization. Left shoulder arthroplasty revision to a reverse TSA. Developing lucency about the glenoi d component screws when compared back to 11/13/20, compatible with loosening. Pre sumed distal clavicle resection. Incompletely imaged instrumented spinal fusion from the upper cervical spine to the upper thoracic spine. Spinal cord st imulator. At least one old healed left posterior rib fracture. Narrative 12/29/2021 10:57 AM SCALES INSPECTOR EXAM: ??DX SHOULDER LEFT 2+ VIEWS Procedure [...] old healed left posterior rib fracture. Alfredo [facility]ER GARDINER documented in this encounter Visit Diagnoses Diagnosis Preoperative Exam - Primary Painful Total Joint Arthroplasty Initial (HCC) Preoperative Exam Painful Total Joint Arthroplasty Initial (HCC) documented in this encounter Additional Health Concerns Assessment Noted Time PHQ-9 Depression Total Score: 16 02/11/2021 12:00 AM C DT documented as of this encounter
--- OUTSIDE RECORDS SUMMARY | 2022-07-06 14:51 | XMS_ITS | Encounter Summary ---
:1965 Author Organization [facility] Address [address] [place] [address] Care Team Providers Name Role Phone Unavailable Primary Care Provider Unavailable Reason for Visit MRI/CAT/PET Scan (Routine) - Canceled Specialty Diagnoses / Procedures Referred By Contact Refer red To Contact Radiology Diagnoses Aneurysm Cerebral Unruptured (HCC) Robert Diehl M.D. [facility] Procedures MR Brain Angiogram without IV Contrast [address] [place] [address] Referral ID Status Reason Start Date Expiration Date Visits V isits Requested Authorized [id number] Canceled 09/15/2020 09/15/2021 1 1 Encounter Details Date Type Department Care Team Description 09/18/2021 Hospital Encounter Department of Robert Diehl ed (Patient: Radiology in Lilian Celaya Request) [place], [place] [address] [facility] [address] [place] [phone] Social History Tobacco Use Types Packs/Day Years [...] you attend caodaism or Patient refused 2021 pentecostalism services? Do you belong to any clubs or No 05/17/2022 organizations such as caodaism groups, unions, fraLoxo Oncology or athletic groups, or school groups? How [...]
--- OUTSIDE RECORDS SUMMARY | 2022-07-06 14:51 | XMS_ITS | Encounter Summary ---
:1965 Author Organization [facility] Address [address] [place] [address] Care Team Providers Name Role Phone Unavailable Primary Care Provider Unavailable Reason for Referral MRI/CAT/PET Scan (Routine) - Authorized Specialty Diagnoses / Procedures Referred By Contact Refer red To Contact Radiology Diagnoses Stroke Cerebrovascular Accident Personal History Occlusion Vertebral Artery With lnfarction (HCC) Robert Diehl M.D. [facility] Procedures MR Neck Angiogram without and with IV Contrast [address] [place] [address] Referral ID Status Reason Start Date Expiration Date Visits V isits Requested Authorized [id number] Authorized 12/10/2021 12/10/2022 1 1 OLEUM SUPPLY SPECIALIST Outpatient (Routine) - Authorized Specialty Diagnoses / Procedures Referred By Contact Refer red To Contact Diagnoses Aneurysm Cerebral Unruptured (HCC) Robert Diehl M.D. [facility] Procedures PM Device interrogation (clinic) [address] [place] [address] Referral ID Status Reason Start Date Expiration Date Visits V isits Requested Authorized [id number] Authorized 12/10/2021 12/10/2022 1 1 OLEUM SUPPLY SPECIALIST MRI/CAT/PET Scan (Routine) - Authorized Specialty Diagnoses / Procedures Referred By Contact Refer red To Contact Radiology Diagnoses Aneurysm Cerebral Unruptured (HCC) Robert Diehl M.D. [facility] Procedures MR Brain Angiogram without IV Contrast [address] [place] [address] Referral ID Status Reason Start Date Expiration Date Visits V isits Requested Authorized [id number] Authorized 12/10/2021 12/10/2022 1 1 OLEUM SUPPLY SPECIALIST Reason for Visit Reason Comments Michel Encounter Details Date Type Department Care Team Description 12/10/2021 Clinical Communication Department of Robert Diehl W8B/[facility] in [place], [place] [address] [facility] [address] [place] [address] [phone] Social History Tobacco Use Types Packs/Day Years [...] or relatives? How often do you attend voodoo or Patient refused 2021 sikh services? Do you belong to any clubs or No 05/17/2022 organizations such as voodoo groups, unions, fraternal or athletic groups, or [...] the highest level of school Associate degree: boniqra polo, 03/24/2021 you have completed or the highest technical, or vocational p john degree you have received? Sex Assigned at Date Recorded Female 03/01/2019 10:12 AM CDT documented as of this encounter Miscellaneous Notes Telephone Encounter - Robert Diehl M.D. - 12/10/2021 2:58 PM CST Signed and thank you. OLEUM SUPPLY SPECIALIST documented in this encounter Plan of Treatment Scheduled Orders Name Type Priority Associated Diagnoses Order S chedule MR Brain Angiogram Imaging RAD - Routine Aneurysm Cerebral Exp ected: without IV Contrast (most inpatients Unruptured ([facility]) 05/03/2022, and all Expires: outpatients) 03/10/2023 PM Device Procedures Routine Aneurysm Cerebral Expected: interrogation Unruptured ([facility]) 12/29/2021 , (clinic) Expires: 03/10/2023 MR Neck Angiogram Imaging RAD - Routine Stroke Cerebrovascular Expected: without and with IV (most inpatients Accident Personal 05/03/2022 Contrast and all History (Approximate), outpatients) Occlusion Vertebral Expires: Artery With lnfarction 03/10 ([facility]) documented as of this encounter Visit Diagnoses Diagnosis Stroke Cerebrovascular Accident Personal History - Primary Aneurysm Cerebral Unruptured ([facility]) Occlusion Vertebral Artery With lnfarcti on ([facility]) documented in this encounter Additional Health Concerns Assessment Noted Time PHQ-9 Depression Total Score: 16 02/11/2021 12:00 AM C DT documented as of this encounter
--- OUTSIDE RECORDS SUMMARY | 2022-07-06 14:51 | XMS_ITS | Encounter Summary ---
:1965 Author Organization [facility] Address [address] [place] [address] Care Team Providers Name Role Phone Unavailable Primary Care Provider Unavailable Reason for Visit Physical Therapy (Routine) - Closed Specialty Diagnoses / Procedures Referred By Contact Refer red To Contact Diagnoses Dissociation Scapholunate Left Dario Noel M.D. [facility] Procedures PT or OT eval and treat (first available) [address] [place] [phone] Referral ID Status Reason Start Date Expiration Date Visits Requ ested Visits Authorized [id number] Closed 06/08/2021 06/08/2022 99 99 Encounter Details Date Type Department Care Team Description 06/08/2021 Clinical Support Department of Physical German Noel M.D. [address] [place] [address] [phone] Pain Wrist Left (Primary Dx); Medicine and Veena Quevedo M.S., C.H.T., O.T. [address] [place] [address] [phone] Dissociation Scapholunate Left Rehabilitation in [place], [place] [address] [place] [phone] Social History Tobacco Use Types Packs/Day [...] you attend gnosticist or Patient refused 2021 adventist services? Do [...] documented as of this encounter Consult Notes Veena Quevedo M.S., O.T. - 06/08/2021 1:15 PM CDT Hand Therapy Outpatient Evaluation and Treatment By co-signing this note, the provider certifies the therapy being provided to this patient is reasonable and necessary for the diagnosis or treatment of this patient. Contact monitoring: PPE used during therapy: Therapist was wearing the following PPE throughout entire session: surgicalmask Patient was wearing a mask during therapy session: yes SUBJECTIVE Patient's Name: Angie Mosquera Referring Provider: Dario Noel M.D. 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 She was evaluated by her local orthopedic provider after her discharge from the hospital where radiographs of her left hand showed SL dissociation. Patient was seen by Dr. Noel' service and placed into a cast. Patienthad a recheck with Dr. Noel on 06/08/21; she was referred to hand therapy for a volar wrist orthosisand range of motion. Rehab Diagnosis: 1. Pain Wrist Left 2. Dissociation Scapholunate Left Payor: MEDICARE / Plan: MEDICARE A AND B / Product Type: Medicare / Pertinent Medical/Surgical History: Patient Active Problem List Diagnosis ??? Rhinosinusitis [...] (HCC) ??? Nicotine Dependence Unspecified ??? 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 BACK SURGERY ??? BARIATRIC SURGERY ??? CARPAL TUNNEL RELEASE ??? CERVICAL FUSION ??? CHOLECYSTECTOMY ??? EXTRADURAL COMPUTER NAVIGATION N/A 12/07/2019 Procedure: EXTRADURAL COMPUTER NAVIGATION.; Surgeon: Darlin Olmedo M.D.; Location: [facility] ??? HYSTERECTOMY ??? JOINT REPLACEMENT Bilateral ??? KNEE ARTHROPLASTY ??? OTHER CONVERTED SHX (SEE COMMENT) N/A 05/21/2008 >Esophagogastroduodenoscopy with biopsy and dilation. ??? SHOULDER SURGERY ??? SINUSOTOMY ENDOSCOPY FRONTAL Bilateral 12/07/2019 Procedure: SINUSOTOMY ENDOSCOPY FRONTAL.; Surgeon: Darlin Olmedo M.D.; Location: [facility] ??? SPINAL CORD STIMULATOR IMPLANT Precautions/Restrictions: Patient will wear orthosis for comfort Total Outpatient Visit Count in Hand Therapy: 1 OT Next Certification Date: 09/06/21 Subjective Comments from the Patient: patient reports her wrist is sore. She reports she'll have help coming 3 days a week at her home Occupational Profile: Hand Dominance: , Right hand dominant Patient lives alone. The patient is disabled. Current functional limitations include: The patient has difficulties performing daily occupations due to limited use of the involved extremity. OBJECTIVE Review of Symptoms: Physical Exam: Numerical Rating Scale: 7/10. On a 0-10 scale with 0 being no pain and 10 being the most severe pain. , Pain location: wrist Sensation: Numbness notesleft thumb and index finger Edema: No visible or palpable edema. Active Range of Motion:Finger range of motion is within normal limits. Wrist Flexion: 53 degrees Wrist Extension: 58 degrees Wrist Radial Deviation: 10 degrees Wrist Ulnar Deviation: 10 degrees Forearm Supination: 65 degrees Forearm Pronation: 55 degrees Fall Assessment: Skilled Therapy Intervention Performed Today: Therapeutic exercise: The patient was instructed in active range of motion of the wrist and forearm.These exercises should be completed 3-4x/day at 5-10 repetitions. -The patient was instructed in active range of motion and passive range of motion of fingers. The patient should perform these 3-4x/day at 5-10 repetitions. Orthosis Fabrication: The patient was appropriately assessed for the orthosis. This therapist fabricated a left forearm based volar wrist. The orthosis was fabricated from thermoplastics materials and secured with rivets and velcro hook. The patient will wear the orthoses for comfort. The patient was instructed in wear and care of the orthosis/orthoses. Patient was provided the following home instruction handouts: Splint Receipt [id number]. Active Hand Exercises (Six Pack) [id number]. Active Wrist Exercises [id number] Assessment Clinical Impression: The patient tolerated the session with no adverse reactions to this therapy session. The patient verbalized understanding to the self management program. The patient reports the orthosis is comfortable. Rehab Potential: Ms. Mosquera has Good potential to achieve established therapy goals within the timeframe outlined below, provided she actively participates in her therapy treatment plan and home program. Evaluation Considerations: Occupational Therapy: Comorbid Conditions:, Cerebrovascular accident Hand Therapy Personal Factors: None Hand Therapy Occupational Therapy Profile Review: Brief OT Performance Deficits:, 3-5 performance deficits Evaluation Complexity Occupational Therapy , Low Hand Therapy Goals and Timeframes: The patient/caregiver will verbalize understanding of the orthotic wearing schedule and caring for the orthosis. Date 09/08/21. Goal in progress The patient/caregiver will verbalize understanding of the self-management program following each therapy session. Goal in progress Patient will complete his/her morning hygiene/grooming routine using the affected extremity with no difficulty. Date . Goal in progress Patient will resume cooking a light meal with no difficulty using the affected extremity. Date 09/08/21 Goal in progress The severity of Ms. Mosquera's functional limitation will be re-assessed within the next 10 visits. Plan Ms. Mosquera was educated regarding evaluative findings, diagnosis, prognosis, potential risks and benefits of rehabilitation interventions. A collaborative effort was used to establish goals and plan of care. She was informed of her right to make decisions regarding her care, including refusal of examination or treatment or selection of therapy services from another provider if desired. The treatmentplan may be progressed or modified based upon her response to treatment. Treatment Plan: Start of Plan of Care: 06/08/21 Number of Visits: 20 visits in hand therapy. Duration: through 09/08/21 Return Physician Appointment: 07/22/21 Plan for Next Session: The patient will continue with a home program until next recheck with Dr. Noel. Therapy is scheduled after her recheck; progress to strengthening, adjust orthosis as needed Treatment interventions may include: -Orthosis: left forearm based volar wrist, wear for comfort -Active range of motion of wrist and forearm -Range of motion of fingers -Range of motion of elbow -Edema control -Progress to passive range of motion as indicated -Progressive strengthening as indicated Physical Therapy Time Spent with Patient Occupational Therapy Time Spent with Patient OT Evaluation (min): 10 min Therapeutic Exercise (min): 16 min Time Calculation Total Timed Units (min): 16 min Total Treatment Time (min): 26 min LCode: 20 (minutes). This is additional time spent with the patient that was not accounted in the total time spent with this patient. Jonny NavarroS., O.T. documented in this encounter Plan of Treatment Not on filedocumented as of this encounter Visit Diagnoses Diagnosis Pain Wrist Left - Primary Dissociation Scapholunate Left documented in this encounter Additional Health Concerns Assessment Noted Time PHQ-9 Depression Total Score: 16 02/11/2021 12:00 AM C DT documented as of this encounter
--- OUTSIDE RECORDS SUMMARY | 2022-07-06 14:51 | XMS_ITS | Encounter Summary ---
:1965 Author Organization [facility] Address [address] [place] [address] Care Team Providers Name Role Phone Unavailable Primary Care Provider Unavailable Reason for Visit Reason Comments Nicotine Dependence Encounter Details Date Type Department Care Team Description 07/24/2021 Clinical Communication Department of [facility], Carolyn Mccarthy cotine Dependence Nicotine M.S., Dependence, C.T.T.S., [facility], L.P[facility]C. in [address] [place] [phone] [place], [place] [phone] (Work) [phone] Social History Tobacco Use Types Packs/Day Years [...] or relatives? How often do you attend hindu or Patient refused 2021 sikhism services? Do you belong to any clubs or No 05/17/2022 organizations such as hindu groups, unions, fraternal or athletic groups, or [...]
--- OUTSIDE RECORDS SUMMARY | 2022-07-06 14:51 | XMS_ITS | Encounter Summary ---
:1965 Author Organization [facility] Address [address] [place] [address] Care Team Providers Name Role Phone Unavailable Primary Care Provider Unavailable Encounter Details Date Type Department Care Team Description 11/25/2021 Clinical Communication Department of Guillermo Patterson, Neurologic Surgery in [place], [place] [address] [place] [address] [address] [place] [phone] Social History Tobacco Use Types Packs/Day Years [...] attend roman catholic or Patient refused 2021 alevism services? Do [...] this encounter Miscellaneous Notes Telephone Encounter - Guillermo Patterson R.N. - 11/25/2021 12:57 PM CST Contacted and left a message. No identifiers on voice mail. Previous pt of Dr. Benjamin. Pt needs to be seen through ED, or local provider/neurology. CAL LIBRARIAN documented in this encounter Plan of Treatment Not on filedocumented as of this encounter Visit Diagnoses Not on filedocumented in this encounter Additional Health Concerns Assessment Noted Time PHQ-9 Depression Total Score: 16 02/11/2021 12:00 AM C DT documented as of this encounter
--- OUTSIDE RECORDS SUMMARY | 2022-07-06 14:51 | XMS_ITS | Encounter Summary ---
:1965 Author Organization [facility] Address [address] [place] [address] Care Team Providers Name Role Phone Unavailable Primary Care Provider Unavailable Reason for Visit Reason Comments Pain Appointment Request (Routine) - Closed Specialty Diagnoses / Procedures Referred By Contact Refer red To Contact Orthopedic Surgery Diagnoses Arthroplasty Total Shoulder Replacement Status Post Left David Cohn M.D. [address] [facility] [address] [place] [address] Referral ID Status Reason Start Date Expiration Date Visits Requ ested Visits Authorized [id number] Closed 09/04/2021 09/04/2022 1 1 Encounter Details Date Type Department Care Team Description 09/23/2021 Comprehensive Visit Department of Cyrus Polk Pain Shoulder Left Orthopedic Surgery Lilian Souza (Primary Dx) in [address] [place] [phone] [place], [place] [phone] (Work) [phone] Social History Tobacco Use Types Packs/Day Years [...] you attend caodaism or Patient refused 2021 druze services? Do you belong to any clubs or No 05/17/2022 organizations such as caodaism groups, unions, frakabuku or athletic groups, or school groups? How [...] documented as of this encounter Consult Notes Cyrus Polk M.D. - 09/23/2021 10:45 AM CDT SUBJECTIVE No referring provider defined for this encounter. CHIEF COMPLAINT/PURPOSE OF VISIT Angie Mosquera is a pleasant 56 y.o. female who presents for evaluation of left shoulder pain. HISTORY OF PRESENT ILLNESS The patient is status post 2016 tsa, the reversed, then later found out later infected 12/2020 debrided and component retention. IV abx then oral OBJECTIVE PHYSICAL EXAMINATION General: Patient is in no acute distress. Shoulder ROM: ?? Active elevation is 30 ?? Passive elevation is 50 ?? External rotation to 0 ?? Internal rotation to Iliac crest Strength: ?? Flexion 4 ?? Abduction 3 ?? External rotation 3 ?? 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 We discussed operative and non-operative measures. We discussed risks, benefits, and alternatives of revision arthroplasty with the patient as well as postoperative rehabilitation and restrictions. They clearly understand the possibility of continuing pain and limitation of function despite operative intervention. They understand that pain and function could be worseafter surgery. At this point, the patient will undergo the following testing: CT scan and aspirationwith cultures. They do understand it is their responsibility to call me to review the results of the testing when it is complete. All questions answered. DIAGNOSES #1 Painful shoulder arthroplasty documented in this encounter Plan of Treatment Not on filedocumented as of this encounter Visit Diagnoses Diagnosis Pain Shoulder Left - Primary documented in this encounter Additional Health Concerns Assessment Noted Time PHQ-9 Depression Total Score: 16 02/11/2021 12:00 AM C DT documented as of this encounter
--- OUTSIDE RECORDS SUMMARY | 2022-07-06 14:51 | XMS_ITS | Encounter Summary ---
:1965 Author Organization [facility] Address [address] [place] [address] Care Team Providers Name Role Phone Unavailable Primary Care Provider Unavailable Encounter Details Date Type Department Care Team Description 09/23/2021 Hospital Encounter Department of Alfredo Herrera Total Joint Radiology, Anh Gonzales Arthroplasty Initial Building, in [address] [place] [address] ([facility]) [facility] [phone] [place] [address] [place], [place] (Work) [phone] Social History Tobacco Use Types Packs/Day Years [...] or relatives? How often do you attend evangelical or Patient refused 2021 denominational services? Do you belong to any clubs or No 05/17/2022 organizations such as evangelical groups, unions, fraternal or athletic groups, or [...] Diagnosis DX SHOULDER LEFT RAD - Routine 09/23/2021 9:44 Painful Total Joint Results for this 2+ VIEWS (most inpatients AM CDT Arthroplasty procedure a re in and all Initial (HCC) the results outpatients) section. documented in this encounter Results DX Shoulder Left 2+ Views (09/23/2021 9:44 AM CDT) Anatomical Region Laterality Modality Upper Extremity, Shoulder, Musculoskeletal RST LOS, Left Digital Radiography Musculoskeletal ARZ LOS, Muskuloskeletal FLA LOS Specimen (Source) Anatomical Collection Method Collection Time Re ceived Time Location / / Volume Laterality 09/23/2021 9:51 AM CDT Impressions 09/23/2021 9:53 AM CDT Left reverse TSA. Lucency along the glenoid component appears slightly increased since 08/26/2021. Tulio ot exclude developing loosening or infection. Narrative 09/23/2021 9:53 AM CDT EXAM: ??DX SHOULDER LEFT 2+ VIEWS Procedure Note Cyrus Weiner M.D. - 09/23/2021Format ting of this note might be different from the original. EXAM: DX SHOULDER LEFT 2+ VIEWS IMPRESSION: Left reverse TSA. Lucency along the kings oid component appears slightly increased since 08/26/2021. Tulio ot exclude developing loosening or infection. Alfredo Kamara IMGeronimo DIAGNOSTIC IMAGING PROCE ZULEYKA documented in this encounter Visit Diagnoses Diagnosis Painful Total Joint Arthroplasty Initial (HCC) documented in this encounter Additional Health Concerns Assessment Noted Time PHQ-9 Depression Total Score: 16 02/11/2021 12:00 AM C DT documented as of this encounter
--- OUTSIDE RECORDS SUMMARY | 2022-07-06 14:51 | XMS_ITS | Encounter Summary ---
:1965 Author Organization [facility] Address [address] [place] [address] Care Team Providers Name Role Phone Unavailable Primary Care Provider Unavailable Reason for Visit Reason Comments Nicotine Dependence Encounter Details Date Type Department Care Team Description 07/16/2021 Clinical Communication Department of [facility], Carolyn Mccarthy cotine Dependence Nicotine M.S., Dependence, C.T.T.S., [facility], L.P.C.C. in [address] [place] [address] [place], [place] [phone] (Work) [phone] Social History Tobacco Use Types Packs/Day Years [...] you attend faith or Patient refused 2021 buddhism services? Do [...]
--- OUTSIDE RECORDS SUMMARY | 2022-07-06 14:51 | XMS_ITS | Encounter Summary ---
:1965 Author Organization [facility] Address [address] [place] [address] Care Team Providers Name Role Phone Unavailable Primary Care Provider Unavailable Encounter Details Date Type Department Care Team Description 09/23/2021 Hospital Encounter Department of Alfredo Herrera Total Joint Laboratory Medicine A, O.PEmilioCBritton Arthroplasty Initial and Pathology, [address] [place] [address] ([facility]) [facility] in [facility] [address] [place] [phone] 200 [facility] (Work) [place], [place] [phone] (Fax) [phone] Social History Tobacco Use Types Packs/Day Years [...] you attend yarsanism or Patient refused 2021 islam services? Do you belong to any clubs [...] Name Priority Date/Time Associated Diagnosis Comme nts SEDIMENTATION RATE, B Routine 09/23/2021 9:07 Painful Total Awilda int Results for this AM CDT Arthroplasty Initial procedu re are in (HCC) the results section. CBC WITH DIFFERENTIAL, Routine 09/23/2021 9:07 Painful Total J oint Results for this B AM CDT Arthroplasty Initial procedu re are in (HCC) the results section. C-REACTIVE PROTEIN Routine 09/23/2021 9:07 Painful Total Joint Results for this (CRP), S/P AM CDT Arthroplasty Initial procedu re are in (HCC) the results section. documented in this encounter Results (ABNORMAL) Sedimentation Rate (09/23/2021 9:07 AM CDT) [facility] Method Time Signature Sedimentation 31 (H) 2 - 22 09/23/2021 DTL Rate, B mm/h 10:46 AM CDT Specimen Anatomical Collection Method Collection Time Receive d Time (Source) Location / / Volume Laterality Blood (Blood, 09/23/2021 9:07 AM 09/23/20 9:30 Venous) CDT AM CDT Alfredo Kamara LAB BLOOD ADD-ON Performing Organization Address City/[facility] Phon e Number [facility] - 200 [place], [place] [address] [place] [address] CRP (C-Reactive Protein) (09/23/2021 9:07 AM CDT) athologist Signature C-Reactive <3.0 <=8.0 mg/L 09/23/2021 DTL Protein (CRP), 10:30 AM CDT S Specimen Anatomical Collection Method Collection Time Receive d Time (Source) Location / / Volume Laterality Blood (Blood, 09/23/2021 9:07 AM 09/23/20 9:57 Venous) CDT AM CDT Alfredo Kamara LAB BLOOD ADD-ON Performing Organization Address City/[facility] Phon e Number [facility] - 200 [place], [place] [address] [place] [id number] [place] [address] (ABNORMAL) CBC with Differential, Blood (09/23/2021 9:07 AM CDT) [facility] Method Time Signature Hemoglobin 10.1 (L) 11.6 - 09/23/2021 DTL 15.0 g/dL 9:41 AM CDT Hematocrit 32.1 (L) 35.5 - 09/23/2021 DTL 44.9 % 9:41 AM CDT Erythrocytes 3.75 (L) 3.92 - 09/23/2021 DTL 5.13 9:41 AM CDT x10(12)/L MCV 85.6 78.2 - 09/23/2021 DTL 97.9 fL 9:41 AM CDT RBC Distrib Width 18.0 (H) 12.2 - 09/23/2021 DTL 16.1 % 9:41 AM CDT Platelet Count 308 157 - 371 09/23/2021 DTL x10(9)/L 9:41 AM CDT Leukocytes 6.4 3.4 - 9.6 09/23/2021 DTL x10(9)/L 9:41 AM CDT Neutrophils 3.87 1.56 - 09/23/2021 DTL 6.45 9:41 AM CDT x10(9)/L Lymphocytes 1.60 0.95 - 09/23/2021 DTL 3.07 9:41 AM CDT x10(9)/L Monocytes 0.69 0.26 - 09/23/2021 DTL 0.81 9:41 AM CDT x10(9)/L Eosinophils 0.19 0.03 - 09/23/2021 DTL 0.48 9:41 AM CDT x10(9)/L Basophils 0.03 0.01 - 09/23/2021 DTL 0.08 9:41 AM CDT x10(9)/L Specimen Anatomical Collection Method Collection Time Receive d Time (Source) Location / / Volume Laterality Blood (Blood, 09/23/2021 9:07 AM 09/23/20 9:30 Venous) CDT AM CDT Alfredo Kamara LAB BLOOD ADD-ON Performing Organization Address City/State/ZIP Code Phon e Number [facility] - [address] [place], [place] [address] [facility] [place] [place] [address] Laboratories-[facility] [address] documented in this encounter Visit Diagnoses Diagnosis Painful Total Joint Arthroplasty Initial (HCC) documented in this encounter Additional Health Concerns Assessment Noted Time PHQ-9 Depression Total Score: 16 02/11/2021 12:00 AM C DT documented as of this encounter
--- OUTSIDE RECORDS SUMMARY | 2022-07-06 14:51 | XMS_ITS | Encounter Summary ---
:1965 Author Organization [facility] Address [address] [place] [address] Care Team Providers Name Role Phone Unavailable Primary Care Provider Unavailable Encounter Details Date Type Department Care Team Description 10/13/2021 Clinical Communication Preoperative [facility] in [employer] [place], [place] [address] [facility] [address] [place] [address] [phone] Social History Tobacco Use Types Packs/Day Years [...] you attend jewish or Patient refused 2021 mu-ism services? Do you belong to any clubs [...] this encounter Miscellaneous Notes Telephone Encounter - Umu Gan R.R.T. - 10/13/2021 11:09 AM STUDIO OPERATIONS MANAGER Surgical Risk Score: 3 Risk Identifiers: 4+ ??? TIA ??? PFO ??? Hx of Arterial Thrombosis ??? Asthma IO OPERATIONS MANAGER documented in this encounter Plan of Treatment Not on filedocumented as of this encounter Visit Diagnoses Not on filedocumented in this encounter Additional Health Concerns Assessment Noted Time PHQ-9 Depression Total Score: 16 02/11/2021 12:00 AM C DT documented as of this encounter
--- OUTSIDE RECORDS SUMMARY | 2022-07-06 14:51 | XMS_ITS | Encounter Summary ---
:1965 Author Organization [facility] Address [address] [place] [address] Care Team Providers Name Role Phone Unavailable Primary Care Provider Unavailable Reason for Referral Outpatient (Routine) - Closed Specialty Diagnoses / Procedures Referred By Contact Refer red To Contact Diagnoses Painful Total Joint Arthroplasty Initial (HCC) Alfredo Herrera [place] [facility] Procedures US Major Joint Aspiration and or Injection Left [facility].A[facility]. [address] [place] [address] Referral ID Status Reason Start Date Expiration Date Visits Requ ested Visits Authorized [id number] Closed 09/07/2021 09/07/2022 1 1 Outpatient (Routine) - Closed Specialty Diagnoses / Procedures Referred By Contact Refer red To Contact Diagnoses Painful Total Joint Arthroplasty Initial (HCC) Alfredo Herrera [place] Procedures US Musculoskeletal Shoulder Left [facility]. [address] [place] [address] Referral ID Status Reason Start Date Expiration Date Visits Requ ested Visits Authorized [id number] Closed 09/07/2021 09/07/2022 1 1 MRI/CAT/PET Scan (Routine) - Closed Specialty Diagnoses / Procedures Referred By Contact Refer red To Contact Radiology Diagnoses Painful Total Joint Arthroplasty Initial (HCC) Alfredo Herrera [place] Procedures CT Shoulder Left without IV Contrast [facility] [address] [place] [address] Referral ID Status Reason Start Date Expiration Date Visits Requ ested Visits Authorized [id number] Closed 09/07/2021 09/07/2022 1 1 Reason for Visit Reason Comments Pre-visit Testing Orders L shldr - prev. TSA Encounter Details Date Type Department Care Team Description 09/07/2021 Clinical Communication Department of Jam, Pre- visit Testing Orthopedic Surgery Cyrus Souza M.D. Orders (L shldr - in [address] prev. TSA) [place], [place] [address] [place] [id number] [place], [place] [phone] (Work) [phone] Social History Tobacco Use Types Packs/Day Years [...] you attend sabianism or Patient refused 2021 yazdanism services? Do [...] Notes Telephone Encounter - Sosa Laughlin - 09/07/2021 12:35 PM CDT Please sign orders for upcoming appointment, Thank you. documented in this encounter Plan of Treatment Not on filedocumented as of this encounter Results US Major Joint Aspiration [...] sydni ulder joint effusion. NR Alfredo Kamara IMG US PROCEDURES US Musculoskeletal Shoulder Left (09/25/2021 [...] with hematoma. Alfredo Kamara IMG US PROCEDURES Mycobacterial Culture (09/25/2021 1:48 PM CDT) Sweeten Method Time Signature Mycobacterial No growth 11/07/2021 DTL Culture after 42 1:03 AM ADMINISTRATIVE SUPERVISOR days of incubation . Specimen Anatomical Collection Method Collection Time Receive d Time (Source) Location / / Volume Laterality Fluid (Synovial 09/25/2021 1:48 PM 2020 3:42 Fluid, Left CDT PM CDT Shoulder) Comment: Specimen Source Site: Fluid Narrative [facility] - 11/07/2021 1:03 AM ADMINISTRATIVE SUPERVISOR Fungal and Mycobacteria specimens plated for culture, volume inadequate for optimal recovery. Alfredo Kamara LAB MICROBIOLOGY - GENERAL O RDERABLES Performing Organization Address City/State/ZIP Code Phon e Number [facility] - [address] [place], [place] [address] [facility] [place] [address] [facility] [address] Fungal Culture, Routine (09/25/2021 1:48 PM CDT) Sweeten Method Time Signature Fungal No growth 10/20/2021 DTL Culture, after 24 1:01 AM ADMINISTRATIVE SUPERVISOR Routine days of incubation. Specimen Anatomical Collection Method Collection Time Receive d Time (Source) Location / / Volume Laterality Fluid (Synovial 09/25/2021 1:48 PM 2020 3:42 Fluid, Left CDT PM CDT Shoulder) Comment: Specimen Source Site: Fluid Narrative [facility] - 10/20/2021 1:01 AM ADMINISTRATIVE SUPERVISOR Fungal and Mycobacteria specimens plated for culture, volume inadequate for optimal recovery. Alfredo Kamara LAB MICROBIOLOGY - GENERAL O RDERABLES Performing Organization Address [facility] Phon e Number [facility] - [address] [place], [place] [address] [facility] [place] [address] [facility]-[address] Crystal Identification, Synovial Fluid (09/25/2021 1:48 PM CDT) [facility] Time Signature Crystal ID, None seen None seen 09/25/2021 [facility] Synovial Fl 4:56 PM CDT Reviewed by: Tech 09/25/2021 [facility] 4:56 PM CDT Specimen Anatomical Collection Method Collection Time Receive d Time (Source) Location / / Volume Laterality Fluid (Synovial 09/25/2021 1:48 PM 2020 3:27 Fluid, Left CDT PM CDT Shoulder) Alfredo Kamara LAB BODY FLUIDS AND STOOLS O RDERABLES Performing Organization Address City/[facility] Phon e Number [facility] - [address] [place], [place] [address] [place] [address] (ABNORMAL) Broad Range Bacteria PCR+Sequencing (09/25/2021 1:48 PM CDT) Component Value Ref Test Analysis Performed At [facility] gist Range Method Time Signature Broad Range This test was developed and its performance characteri stics 10/06/2021 DTL Bacteria determined by [facility] in a manner consistent with 1:24 PM ADMINISTRATIVE SUPERVISOR PCR+Sequencin CLIA requirements. This test has not been cleared or g approved by the U.S. Food and Drug Administration. (A) Broad Range STAPHYLOCOCCUS EPIDERMIDIS 10/06/2021 DTL Bacteria DNA detected 1:24 PM ADMINISTRATIVE SUPERVISOR PCR+Sequencin (A) g Comment: Semi-Urgent Result. Semi-Urgent This is a semi-urgent result [facility] - () [facility] Specimen Anatomical Collection Method Collection Time Receive d Time (Source) Location / / Volume Laterality Fluid (Synovial 09/25/2021 1:48 PM 2020 3:42 Fluid, Left CDT PM CDT Shoulder) Comment: Specimen Source Site: Fluid Narrative [facility] - 10/06/2021 1:24 PM ADMINISTRATIVE SUPERVISOR Fungal and Mycobacteria specimens plated for culture, volume inadequate for optimal recovery. Alfredo Kamara LAB MICROBIOLOGY - GENERAL O MARY Performing Organization Address [facility] Phon e Number [facility] - [address] Bacterial Culture, Anaerobic + Susc (09/25/2021 1:48 PM CDT) Sweeten Method Time Signature Bacterial No growth 10/09/2021 DTL Culture, after 14 7:41 AM ADMINISTRATIVE SUPERVISOR Anaerobic + days of Susc incubation. Specimen Anatomical Collection Method Collection Time Receive d Time (Source) Location / / Volume Laterality Fluid (Synovial 09/25/2021 1:48 PM 2020 3:42 Fluid, Left CDT PM CDT Shoulder) Comment: Specimen Source Site: Fluid Narrative [facility] - 10/09/2021 7:41 AM ADMINISTRATIVE SUPERVISOR Fungal and Mycobacteria specimens plated for culture, volume inadequate for optimal recovery. Alfredo Kamara LAB MICROBIOLOGY - GENERAL O MARY Performing Organization Address City/[facility] Phon e Number [facility] - [address] (ABNORMAL) Bacterial Culture, Aerobic + Susc (09/25/2021 1:48 PM CDT) Component Value Ref Test Analysis Performed At [facility] Range Method Time Signature Bacterial STAPHYLOCOCCUS EPIDERMIDIS 09/30/2021 DT L Culture, [facility] [place] 2:35 PM CDT Aerobic + (A) Susc Comment: Semi-Urgent Result. Semi-Urgent This is a semi-urgent result [facility] () [facility] Specimen Anatomical Collection Method Collection Time Receive d Time (Source) Location / / Volume Laterality Fluid (Synovial 09/25/2021 1:48 PM 2020 3:42 Fluid, Left CDT PM CDT Shoulder) Comment: Specimen Source Site: Fluid Narrative [facility] - 09/30/2021 2:35 PM CDT Fungal and [...] Address City/State/ZIP Code Phon e Number [facility] - [address] [place], [place] [address] [place] [address] [facility] [address] Gram Stain (09/25/2021 1:48 PM CDT) Patholo gist Method Time Signature Gram Stain No organisms [...] Address City/State/ZIP Code Phon e Number [facility] - [address] [place], [place] [address] [facility] [place] [address] [facility] [address] Shoulder Left without IV Contrast (09/25/2021 [...] ultrasound/aspir ation. Alfredo Kamara IMG CT PROCEDURES DX Shoulder Left 2+ Views (09/23/2021 9:44 [...] exclude developing loosening or infection. Alfredo Kamara IMG DIAGNOSTIC IMAGING PROCE DURES (ABNORMAL) Sedimentation Rate (09/23/2021 9:07 AM CDT) [facility] gist Method Time Signature Sedimentation 31 (H) 2 - 22 09/23/2021 DTL Rate, B mm/h 10:46 AM CDT Specimen Anatomical Collection Method Collection Time Receive d Time (Source) Location / / Volume Laterality Blood (Blood, 09/23/2021 9:07 AM 09/23/20 21 9:30 Venous) CDT AM CDT Alfredo Kamara LAB BLOOD ADD-ON Performing Organization Address [facility] Phon e Number [facility] - [address] [place], [place] [address] [facility] [place] [address] CRP (C-Reactive Protein) (09/23/2021 9:07 AM CDT) P athologist Signature C-Reactive <3.0 <=8.0 mg/L 09/23/2021 DTL Protein (CRP), 10:30 AM CDT S Specimen Anatomical Collection Method Collection Time Receive d Time (Source) Location / / Volume Laterality Blood (Blood, 09/23/2021 9:07 AM 09/23/20 21 9:57 Venous) CDT AM CDT Alfredo Kamara LAB BLOOD ADD-ON Performing Organization Address [facility] Phon e Number [facility] - [address] [place], [place] [id number] [place] [address] (ABNORMAL) CBC with Differential, Blood (09/23/2021 9:07 AM CDT) Patholo gist Method Time Signature Hemoglobin 10.1 (L) 11.6 [...] Laterality Blood (Blood, 09/23/2021 9:07 AM 09/23/20 21 9:30 Venous) CDT AM CDT Alfredo Kamara LAB BLOOD ADD-ON Performing Organization Address City/State/ZIP Code Phon e Number [facility] - [address] [place], [place] [address] [facility] [place] [address] [facility] [...]
--- OUTSIDE RECORDS SUMMARY | 2022-07-06 14:51 | XMS_ITS | Encounter Summary ---
:1965 Author Organization [facility] Address [address] [place] [address] Care Team Providers Name Role Phone Unavailable Primary Care Provider Unavailable Reason for Visit Reason Comments Michel Encounter Details Date Type Department Care Team Description 11/25/2021 Clinical Communication Department of Chani Benjamin Neurologic Surgery in [place], [place], [place] Ph.D. [address] [facility] [address] [place] [phone] Social History Tobacco Use Types Packs/Day Years [...] or relatives? How often do you attend yarsani or Patient refused 2021 restorationist services? Do you belong to any clubs or No 05/17/2022 organizations such as yarsani groups, unions, fraternal or athletic groups, or [...] this encounter Miscellaneous Notes Telephone Encounter - Boris Becerra - 11/25/2021 12:31 PM CST Who is calling: Patient ? Best call back number: ?? Reason for call: Having symptoms of double vision and pinching in her neck on the left side Saw eye doctor and said he thinks its related to the stroke I have shoulder surgery in a month and dont want this to be an issue Patient had 11/18/[address] Diehl that she had no recollection of. ?? Action: Would like a call back to discuss current symptoms and find out where her shunt is placed from surgery *Patient seems a bit disoriented and information was cloudy. Thanks for your help. Boris Neurosurgery Appointment Office [phone] Please respond to the RST YEYO SCHEDULING Pool Thank You UCT DEVELOPMENT ENGINEER documented in this encounter Plan of Treatment Not on filedocumented as of this encounter Visit Diagnoses Not on filedocumented in this encounter Additional Health Concerns Assessment Noted Time PHQ-9 Depression Total Score: 16 02/11/2021 12:00 AM C DT documented as of this encounter
--- OUTSIDE RECORDS SUMMARY | 2022-07-06 14:51 | XMS_ITS | Encounter Summary ---
:1965 Author Organization [facility] Address [address] [place] [address] Care Team Providers Name Role Phone Unavailable Primary Care Provider Unavailable Reason for Visit Outpatient (Routine) - Closed Specialty Diagnoses / Procedures Referred By Contact Refer red To Contact Neurology Robert Diehl M. D. [facility] [address] [place] [phone] Referral ID Status Reason Start Date Expiration Date Visits Requ ested Visits Authorized [id number] Closed 09/15/2020 09/15/2021 1 1 Encounter Details Date Type Department Care Team Description 11/18/2021 Virtual Visit Department of Robert Diehl Stroke Cere brovascular Neurology jimmy Celaya M.D. Accident Personal [place], [place] [address] [place] [address] History (Primary Dx) [address] [place] [phone] Social History Tobacco Use Types Packs/Day Years [...] or relatives? How often do you attend hinduism or Patient refused 2021 bahai services? Do you belong to any clubs or No 05/17/2022 organizations such as hinduism groups, unions, fraternal or athletic groups, or [...] documented as of this encounter Progress Notes Robert Diehl M.D. - 11/18/2021 11:30 AM CST Telephone visit during the COVID 19 pandemic patient not seen in a hudm-ci-uome manner. 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 She is on anti-platelet. The interval history to the current presentation via clinical review during telephone call is negative for any additional stroke-like symptoms. 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 Additionally she was recently diagnosed with COVID locally she did not require hospitalization IV remdesivir or other adjunct of therapy she is now convalescing at home and clinically stable. Due to the medical issues previously mentioned she has not had any follow-up imaging, this has been deferred. Given that there have been no acute stroke symptoms in the interval since her hospital dismissal in January of 2021 following the orthopedic procedure she can have noninvasive vascular image as a surveillance and if there are no changes she can be followed clinically with no additional recommendations. Continue anti-platelet therapy, smoking has drastically reduced to only a few cigarettes per day, and follow with local primary care provider. It was a pleasure to speak with her on the phone all questions answered I wished her well her upcoming surgeries. 15 minutes on the phone Electronically signed by: Robert Diehl M.D. 11/18/21 11:46 AM MANAGER BRAND Diagnosis Plan 1. Stroke Cerebrovascular Accident Personal History GER BRAND documented in this encounter Plan of Treatment Not on filedocumented as of this encounter Visit Diagnoses Diagnosis Stroke Cerebrovascular Accident Personal History - Primary documented in this encounter Additional Health Concerns Assessment Noted Time PHQ-9 Depression Total Score: 16 02/11/2021 12:00 AM C DT documented as of this encounter
--- OUTSIDE RECORDS SUMMARY | 2022-07-06 14:52 | XMS_ITS | Encounter Summary ---
:1965 Author Organization [facility] Address [address] [place] [phone] Care Team Providers Name Role Phone Unavailable Primary Care Provider Unavailable Reason for Referral Outpatient (Routine) - Closed Specialty Diagnoses / Procedures Referred By Contact Refer red To Contact Diagnoses Dissociation Scapholunate Left Michael Downs M.D. [facility] Procedures ORS Cast Room Visit [address] [place] [phone] Referral ID Status Reason Start Date Expiration Date Visits Requ ested Visits Authorized [id number] Closed 03/24/2021 03/24/2022 1 1 Reason for Visit Reason Comments Follow-up Outpatient (Routine) - Closed Specialty Diagnoses / Procedures Referred By Contact Refer red To Contact Diagnoses Dissociation Scapholunate Left Michael Downs M.D. [facility] Procedures ORS Cast Room Visit [address] [place] [phone] Referral ID Status Reason Start Date Expiration Date Visits Requ ested Visits Authorized [id number] Closed 03/24/2021 03/24/2022 1 1 Encounter Details Date Type Department Care Team Description 03/24/2021 Hospital Encounter Department of Paul Downs M.D. [address] [place] [address] [phone] Dissociation Orthopedic Surgery Dario Noel M.D. [address] [place] [phone] Scapkimiunate Left in [place], [place] [address] [place] [address] Social History Tobacco Use Types Packs/Day Years [...] you attend denominational or Patient refused 2021 christian services? Do you belong to any clubs or No 05/17/2022 organizations such as denominational groups, unions, fraternal or athletic groups, or [...] mg capsule 2 (two) times a day. nicotine (NICOTROL) 10 Inhale 1 puff as 42 each 3 021 08/02/2021 mg inhaler needed for smoking cessation (for tobacco craving). Use up to 10 capsules per day. ARTHRITIS PAIN RELIEF, TAKE TWO TABLETS [...] Takes daily documented as of this encounter Procedure Notes Michael Downs M.D. - 03/24/2021 10:00 AM CDTAssociated Order(s): ORS CAST ROOM VISIT HAND SURGERY CASTROOM NOTE DIAGNOSIS: 1. Left S-L dissociation PROCEDURE: 1. Left upper extremity cast application SUBJECTIVE: Angie Mosquera is a 55 y.o. female who presents to the castroom for evaluation of her left wrist.The patient unfortunately was hospitalized for stroke last month and was suspected to have injury toher left wrist secondary to trauma sustained during the stroke. She was evaluated by her local orthopedic provider after her discharge from the hospital where radiographs of her left hand showed S-L dissociation. Of note, she was also seeing him for pain of her left reverse total shoulder arthroplastywhich was done on October 272019, and there is concern for active infection of this joint. She is awaiting results of an aspiration. She was given a removable wrist brace to wear, and this has be en helping with her pain. Currently, she says her biggest issues with the left wrist is pain with lifting objects heavier thana gal of milk. She also states she is unable to buckle her seatbelt and has difficulty using her left hand for driving. She denies any numbness or paresthesias. She denies any fevers, chills or sweats.She has a history of fibromyalgia and is on chronic opioids as well as cannabis use for pain control. She also smokes a half pack per day of cigarettes. Previous surgical history includes the left reverse total shoulder arthroplasty on October 27, 2020which was a revision from a previous total shoulder arthroplasty. She has also had bilateral carpal tunnel releases within the past 4-5 years. She also had a C2-T3 fusion of her cervical spine on 2017. PHYSICAL EXAMINATION: General: Patient is awake, follows commands, not in acute distress. Left Upper Extremity: The left hand and wrist were examined. Skin is intact with no overt signs of trauma. There is no swelling over the dorsal aspect of the hand/wrist. She is diffusely tender about the left wrist. There is a slight click noticed with Gustafson test. She has restricted range of motion of this left wrist with flexion to 45 ?? and extension to 45?? compared with 70/60 degrees on the contralateral side. 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 Otherwise her exam is benign with intact motor and sensory function. She is able to make a composite fist and extend her fingers fully. She is able to fire [employer], EPL, finger flexors/extensors, wrist flexors/extensors, and interossei with good effect. Sensation intact in the median, ulnar, and radial nerve distributions. Fingers warm and well perfused, capillary refill less than 2 seconds. IMAGING STUDIES: Outside radiographs of the left wrist demonstrate widening of the SL joint. There is very subtle dorsal tilt of the lunate. The clenched fist view was obtained of bilateral hands, but unfortunately is difficult to assess the SL interval and the obtained image. ASSESSMENT: Diagnosis Plan 1. Dissociation Scapholunate Left ORS Cast Room Visit ORS Cast Room Visit We discussed the patient's diagnosis with her in detail. We explained that with her concurrent issues with her left shoulder, previous stroke, and chronic opioid and nicotine use we would not recommendsurgery at this time. We would recommend optimization of non operative treatment strategies. We willdefer any injections given the potential for an ongoing infection of the left upper extremity and instead will proceed with immobilization in a short arm cast for 4 weeks. Patient currently has an MRI of her left wrist scheduled for later this morning which we will obtain as well. We will discuss the results of these and reassess her clinical picture and return visit in 4 weeks. PLAN: - A short-arm cast was applied by the castroom forest technician - The patient is nonweightbearing bearing on the left upper extremity - Must keep cast clean, dry, and intact - patient encouraged to continue range of motion of exposed digits - Patient will be seen in the castroom in for weeks for cast removal Electronically signed by: Michael Downs M.D. 03/24/21 9:54 AM CDT Associated attestation - Dario Noel M.D. - 03/24/2021 5:01 PM CDT I saw and evaluated the patient, participating in the dodson portions of the service. I reviewed Dr. Downs's note and I agree with the history and physical exam findings as below. Briefly, this is a 55 y.o. female with an S-L dissociation and wrist pain that is now several weeks old. She had a stroke recently which precipitated her fall. We agreed to start with cast immobilization provide her some relief and obtain an MRI. I answered all of her questions today in clinic. She has my contact information and should feel freeto reach out should she have any further questions or concerns. Otherwise, I will see her back in a month. documented in this encounter Miscellaneous Notes Addendum Note - Beryl Santillan - 03/24/2021 10:00 AM CDT Encounter addended by: Beryl Santillan on: 05/22/2021 10:21 AM Actions taken: Flowsheet accepted documented in this encounter Plan of Treatment Not on filedocumented as of this encounter Procedures Procedure Name Priority Date/Time Associated Diagnosis Comme nts ORS CAST ROOM VISIT Routine 03/24/2021 10:00 Dissociation Resu lts for this AM CDT Scapholunate Left procedure are in the results section. documented in this encounter Results ORS Cast Room Visit (03/24/2021 10:00 AM CDT) Narrative [facility]ODAL - 03/24/2021 10:00 AM CDT Michael Downs M.D. ? 03/24/2021 10:16 AM HAND SURGERY CASTROOM NOTE DIAGNOSIS: 1. Left S-L dissociation PROCEDURE: 1. Left upper extremity cast application SUBJECTIVE: Angie Mosquera is a 55 y.o. female wh o presents to the castroom for evaluation of her left wris t. ??The patient unfortunately was hospitalized for strok e last month and was suspected to have injury to her left wri st secondary to trauma sustained during the stroke. ??She was e valuated by her local orthopedic provider after her discharge from the hospital where radiographs of her left hand showed S-L dissociation. ??Of note, she was also seeing him for pain of her left reverse total shoulder arthroplasty which was done on October 272019, and there is concern for active infectio n of this joint. ??She is awaiting results of an aspiration. ??She was given a removable wrist brace to wear, and this has been h elping with her pain. Currently, she says her biggest issues w ith the left wrist is pain with lifting objects heavier than a gal of milk. ??She also states she is unable to buckle her seatb elt and has difficulty using her left hand for driving. ??She d enies any numbness or paresthesias. She denies any fevers, chi lls or sweats. ??She has a history of fibromyalgia and is on chroni c opioids as well as cannabis use for pain control. ??She als o smokes a half pack per day of cigarettes. ?? Previous surgical history includes the l eft reverse total shoulder arthroplasty on October 27 which was a revision from a previous total shoulder arthropla sty. ??She has also had bilateral carpal tunnel releases within the past 4-5 years. ??She also had a C2-T3 fusion of her cervical spine on February 20, 2018. PHYSICAL EXAMINATION: General: ??Patient is awake, follows com mands, not in acute distress. Left Upper Extremity: ??The left hand an d wrist were examined. ?? Skin is intact with no overt signs of tr auma. ??There is no swelling over the dorsal aspect of the h and/wrist. ??She is diffusely tender about the left wrist. ? ?There is a slight click noticed with Gustafson test. ??She has rest ricted range of motion of this left wrist with flexion to 45 ?? an d extension to 45?? compared with 70/60 degrees on the contr alateral side. ??Major Appliance Assembly Supervisor strength of 10 kg compared to 23 kg the contralateral side. ?? Otherwise her exam is benign with intact motor and sensory function. ??She is able to make a compos ite fist and extend her fingers fully. ??She is able to fire [employer] , EPL, finger flexors/extensors, wrist flexors/extenso rs, and interossei with good effect. ??Sensation intact in the m edian, ulnar, and radial nerve distributions. ??Fingers warm and well perfused, capillary refill less than 2 seconds. IMAGING STUDIES: Outside radiographs of the left wrist de monstrate widening of the SL joint. ??There is very subtle dorsal tilt of the lunate. ??The clenched fist view was obtained of [employer] hands, but unfortunately is difficult to assess the SL interval and the obtained image. ASSESSMENT: Diagnosis Plan 1. Dissociation Scapholunate Left ??ORS Cast Room Visit ORS Cast Room Visit We discussed the patient's diagnosis wit h her in detail. ??We explained that with her concurrent issue s with her left shoulder, previous stroke, and chronic opioid and nicotine use we would not recommend surgery at this time. ??We wou ld recommend optimization of non operative treatment strategies. ? ?We will defer any injections given the potential for an on going infection of the left upper extremity and instead will pr oceed with immobilization in a short arm cast for 4 weeks. ??Rosita sharif currently has an MRI of her left wrist scheduled for later this morning which we will obtain as well. ??We will discuss the re sults of these and reassess her clinical picture and return visit in 4 weeks. PLAN: - A short-arm cast was applied by the sd radha forest technician - The patient is nonweightbearing bearin g on the left upper extremity - Must keep cast clean, dry, and intact - patient encouraged to continue range o f motion of exposed digits - Patient will be seen in the castroom i n for weeks for cast removal Electronically signed by: Michael Downs M.D. 03/24/21 9:54 AM CDT Michael Downs M.D. PROCEDURE/MINOR SURGICAL ORD ERABLES Performing Organization Address City/State/ZIP Code Phon e Number MMODAL MMODAL NA documented in this encounter Visit Diagnoses Diagnosis Dissociation Scapholunate Left documented in this encounter Additional Health Concerns Assessment Noted Time PHQ-9 Depression Total Score: 16 02/11/2021 12:00 AM C DT documented as of this encounter
--- OUTSIDE RECORDS SUMMARY | 2022-07-06 14:52 | XMS_ITS | Encounter Summary ---
:1965 Author Organization [facility] Address [address] [place] [address] Care Team Providers Name Role Phone Unavailable Primary Care Provider Unavailable Encounter Details Date Type Department Care Team Description 03/11/2021 Clinical Communication Department of Ana Segura Orthopedic [place] [address] [place] [phone] Social History Tobacco Use Types Packs/Day Years [...] you attend druze or Patient refused 2021 latter-day services? Do you belong to any clubs [...] What is the highest level of school you have GED or equivale nt 10/02/2019 completed or the highest degree you have received? Sex Assigned at Date Recorded Female 03/01/2019 10:12 AM CDT documented as of this encounter Miscellaneous Notes Telephone Encounter - Jeannette Barboza L.P.N. - 03/16/2021 3:06 PM CDT Called and informed patient of recommendation. Patient would like to be seen in [place]. Referral line to [place] provided to angela batista. Patient aware she will call for apptointment. Telephone Encounter - Jerica Gee L.P.N. - 03/13/2021 9:09 AM CDT Left message to call clinic back. Needs to see a hand surgeon. Telephone Encounter - Christal Abraham L.P.N. - 03/12/2021 3:21 PM CDT Left message for patient to call back. She can contact [place], [place], or sarath frye if she choses. Telephone Encounter - Clemente Schofield M.D. - 03/12/2021 11:23 AM CDT She should see a hand surgeon Telephone Encounter - Esperanza Stratton - 03/11/2021 9:33 AM CDT Reason for Communication: Patient is calling in stating that she is being referred to be seen for a brake in her LEFT hand. Patient is stating that [facility] in [facility] is requesting for patient to be seen by our orthopedic department. Patient is wanting to be seen in [place]. Unable to find any encounters regarding a request for patient to be seen. She stated that paperwork was suppose to have been sent in on 03/01. Current Can Nursing/Provider leave a detailed message: Action Needed: Please review and advise. Name of Medication (if relevant): documented in this encounter Plan of Treatment Not on filedocumented as of this encounter Visit Diagnoses Not on filedocumented in this encounter Additional Health Concerns Assessment Noted Time PHQ-9 Depression Total Score: 16 02/11/2021 12:00 AM C DT documented as of this encounter
--- OUTSIDE RECORDS SUMMARY | 2022-07-06 14:52 | XMS_ITS | Encounter Summary ---
:1965 Author Organization [facility] Address [address] [place] [phone] Care Team Providers Name Role Phone Unavailable Primary Care Provider Unavailable Reason for Referral Outpatient (Routine) - Closed Specialty Diagnoses / Procedures Referred By Contact Refer red To Contact Diagnoses Dissociation Scapholunate Left Michael Downs M.D. [facility] Procedures ORS Cast Room Visit [address] [place] [phone] Referral ID Status Reason Start Date Expiration Date Visits Requ ested Visits Authorized [id number] Closed 05/08/2021 05/08/2022 1 1 Outpatient (Routine) - Closed Specialty Diagnoses / Procedures Referred By Contact Refer red To Contact Diagnoses Dissociation Scapholunate Left Michael Downs M.D. [facility] Procedures ORS Cast Room Visit [address] [place] [phone] Referral ID Status Reason Start Date Expiration Date Visits Requ ested Visits Authorized [id number] Closed 05/08/2021 05/08/2022 1 1 Reason for Visit Reason Onset Date Comments Left Without Being Seen 07/17/2021 Outpatient (Routine) - Closed Specialty Diagnoses / Procedures Referred By Contact Refer red To Contact [facility] [address] [place] [phone] Referral ID Status Reason Start Date Expiration Date Visits Requ ested Visits Authorized [id number] Closed 05/04/2021 05/04/2022 1 1 Encounter Details Date Type Department Care Team Description 05/08/2021 Office Visit Department of Pullazaro, Dario Alejo, Dissocia tion Scapholunate Left (Primary Dx); Orthopedic Surgery in M.D. Procedure And Treatment Not Carried Out Due To Patient Leaving Prior To Being Seen By Health Care Provider [place], [place] [address] [facility] 200 [place] [phone] Social History Tobacco Use Types Packs/Day Years [...] you attend yazidism or Patient refused 2021 restorationist services? Do you belong to any clubs or No 05/17/2022 organizations such as yazidism groups, unions, fraternal or athletic groups, or [...] documented as of this encounter Progress Notes Lauren Dunlap - 05/08/2021 11:30 AM CDT Ms. Angie Mosquera was scheduled and checked in for an appointment but left before being seen by Dario Noel M.D.. documented in this encounter Plan of Treatment Scheduled Orders Name Type Priority Associated Diagnoses Order S chedule ORS Cast Room Visit Procedures Routine Dissociation Scapholu lamin Expected: 05/08/2021 Left (Approximate), Expires: 2023 ORS Cast Room Visit Procedures Routine Dissociation Scapholu lamin Expected: 06/05/2021 Left (Approximate), Expires: 2023 documented as of this encounter Visit Diagnoses Diagnosis Dissociation Scapholunate Left - Primary Procedure And Treatment Not Carried Out Due To Patient Leaving Prior To Being Seen By Health Care Provider documented in this encounter Additional Health Concerns Assessment Noted Time PHQ-9 Depression Total Score: 16 02/11/2021 12:00 AM C DT documented as of this encounter
--- OUTSIDE RECORDS SUMMARY | 2022-07-06 14:52 | XMS_ITS | Encounter Summary ---
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 [facility] Procedures CT Head Neck Angiogram with IV Contrast 200 [place], [place] [phone] Referral ID Status Reason Start Date Expiration Date Visits Requ ested Visits Authorized [id number] Closed 02/17/2021 02/17/2022 1 1 Encounter Details Date Type Department Care Team Description 03/12/2021 Hospital Encounter Department of Jeannette Cote ebral Infarction Radiology jimmy Souza M.D. Due To Embolism [place], 200 [facility] Right Vertebral [place], [place] Artery (HCC) [address] [address] [place], [place] [phone] (Work) [phone] Social History Tobacco Use Types Packs/Day Years [...] or relatives? How often do you attend mu-ism or Patient refused 2021 anglican services? Do you belong to any clubs or No 05/17/2022 organizations such as mu-ism groups, unions, fraternal or athletic groups, or [...] Comments Diagnosis CT HEAD NECK RAD - Routine 03/12/2021 10:29 Cerebral Results fo r this ANGIOGRAM WITH IV (most inpatients AM CDT Infarction Due To p rocedure are in CONTRAST and all Embolism Right the results outpatients) Vertebral Artery section. (HCC) documented in this encounter Results CT Head Neck Angiogram with IV Contrast (03/12/2021 10:29 AM CDT) Anatomical Region Laterality Modality Head and Neck, Neuroradiology RST LOS, N/A C omputed Tomography, Computed Neuroradiology ARZ LOS, Neuroradiology T omography FLA [facility] Specimen (Source) Anatomical Collection Method Collection Time Re ceived Time Location / / Volume Laterality 03/12/2021 11:30 AM CDT Impressions 03/12/2021 12:22 PM CDT 1. 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 Minimal re trograde filling of the vertebral artery distal to the embolization with the diss ection flap no longer evident. 2. Stable small left paraclinoid ICA ane urysms. 3. 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 Narrative 03/12/2021 12:22 PM CDT EXAM: CT HEAD NECK ANGIOGRAM WITH IV CONTRAST Including 3D image post-processing. COMPARISON: CT angiogram 02/17/2021 FINDINGS: Post embolization changes of t he right vertebral artery with embolization device in the V2 segment. R etrograde filling of the intracranial segment. No dissection is visualized in this region. There has been decreased to no flow in the artery more proximally. T he filling defect/intimal flap in the V4 segment is no longer well delineated due to lack of contrast opacification. 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 Otherwise stebbins of Wi llis is intact. Dolichoectasia of the cervical internal carotid arteries bilat erally. Cervical spine posterior instrumentation hardware. Expected evolution of bilateral cerebellar infarcts. Procedure Note Anne Cottrell M.D. - 03/12/2021F ormatting of this note might be different from the original. EXAM: CT HEAD NECK ANGIOGRAM WITH IV CON TRAST Including 3D image post-processing. COMPARISON: CT angiogram 02/17/2021 FINDINGS: Post embolization changes of t he right vertebral artery with embolization device in the V2 segment. R etrograde filling of the intracranial segment. No dissection is visualized in this region. There has been decreased to no flow in the artery more proximally. T he filling defect/intimal flap in the V4 segment is no longer well delineated due to lack of contrast opacification. 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 Otherwise stebbins of [place] llis is intact. Dolichoectasia of the cervical internal carotid arteries bilat erally. Cervical spine posterior instrumentation hardware. Expected evolution of bilateral cerebellar infarcts. IMPRESSION: 1. 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 Minimal re trograde filling of the vertebral artery distal to the embolization with the diss ection flap no longer evident. 2. Stable small left paraclinoid ICA ane urysms. 3. 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 Jeannette NIELSON CT PROCEDURES documented in this encounter Visit Diagnoses Diagnosis Cerebral Infarction Due To Embolism Righ t Vertebral Artery (HCC) documented in this encounter Administered Medications Inactive Administered Medications - up to 3 most recent administrations Medication Order MAR Action Action Date Dose Rate Site iohexoL 350 mg iodine/mL solution Given 03/12/2021 10:28 AM CDT 100 mL 1-200 mL (OMNIPAQUE) 1-200 mL, intravenous, Once in imaging, contrast, Starting on Clementine 03/12/21 at 0904, For 1 dose, Imaging Protocol Orders, Dose per Radiant Medication Guidelines sodium chloride (PF) 0.9 % injection 1-1 00 mL Given 03/12/2021 10:28 AM CDT 35 mL 1-100 mL, intravenous, Once, On Clementine 03/12/21 at 0915, For 1 dose, Imaging Protocol Orders documented in this encounter Additional Health Concerns Assessment Noted Time PHQ-9 Depression Total Score: 16 02/11/2021 12:00 AM C DT documented as of this encounter
--- OUTSIDE RECORDS SUMMARY | 2022-07-06 14:52 | XMS_ITS | Encounter Summary ---
:1965 Author Organization [facility] Address [address] [place] [address] Care Team Providers Name Role Phone Unavailable Primary Care Provider Unavailable Reason for Referral Outpatient (Routine) - Closed Specialty Diagnoses / Procedures Referred By Contact Refer red To Contact Diagnoses Dissociation Scapholunate Left Michael Downs M.D. [facility] Procedures ORS Cast Room Visit [address] [place] [address] Referral ID Status Reason Start Date Expiration Date Visits Requ ested Visits Authorized [id number] Closed 03/24/2021 03/24/2022 1 1 Outpatient (Routine) - Closed Specialty Diagnoses / Procedures Referred By Contact Refer red To Contact Diagnoses Dissociation Scapholunate Left Michael Downs M.D. [facility] Procedures ORS Cast Room Visit [address] [place] [address] Referral ID Status Reason Start Date Expiration Date Visits Requ ested Visits Authorized [id number] Closed 03/24/2021 03/24/2022 1 1 Reason for Visit Reason Comments Pain Appointment Request (Routine) - Closed Specialty Diagnoses / Procedures Referred By Contact Refer red To Contact Orthopedic Surgery Diagnoses Fracture Wrist Hand Closed Initial Referral ID Status Reason Start Date Expiration Date Visits Requ ested Visits Authorized [id number] Closed 03/16/2021 03/16/2022 1 1 Encounter Details Date Type Department Care Team Description 03/24/2021 Admin Visit Department of Dario Noel Dissocia tion Orthopedic Surgery in M.D. Scapholunate Left [place], [place] 200 [facility] (Primary Dx) [address] [place] [phone] Social History Tobacco Use Types Packs/Day Years [...] you attend protestant or Patient refused 2021 samaritan services? Do you belong to any clubs [...] minutes do you engage in exercise at is 0 min 05/17/2022 level? Stress Answer [...] of this encounter Plan of Treatment Scheduled Orders Name Type Priority Associated Diagnoses Order S chedule ORS Cast Room Visit Procedures Routine Dissociation Scapholu lamin Expected: 04/21/2021 Left (Approximate), Expires: 2023 documented as of this encounter Results ORS Cast Room Visit [...] 70/60 degrees on the contr alateral side. ??Ampoule Examiner strength of 10 kg compared to 23 [...] ??The clenched fist view was obtained of bilat eral hands, but unfortunately is difficult to assess [...] a short arm cast for 4 weeks. ??Duyenheaven kole currently has an MRI of her left wrist scheduled for later this morning which we will obtain as well. ??We will discuss the re sults of these and reassess her clinical picture and return visit in 4 weeks. 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
--- OUTSIDE RECORDS SUMMARY | 2022-07-06 14:52 | XMS_ITS | Encounter Summary ---
:1965 Author Organization [facility] Address [address] [place] [address] Care Team Providers Name Role Phone Unavailable Primary Care Provider Unavailable Reason for Referral MRI/CAT/PET Scan (Routine) - Closed Specialty Diagnoses / Procedures Referred By Contact Refer red To Contact Radiology Diagnoses Pain Wrist Left Michael Noble Jr., [facility] Procedures MR Wrist Left without IV Contrast P.A.-C. 200 [place] [address] Referral ID Status Reason Start Date Expiration Date Visits Requ ested Visits Authorized [id number] Closed 03/17/2021 03/17/2022 1 1 Reason for Visit MRI/CAT/PET Scan (Routine) - Closed Specialty Diagnoses / Procedures Referred By Contact Refer red To Contact Radiology Diagnoses Pain Wrist Left Michael Noble Jr., [facility] Procedures MR Wrist Left without IV Contrast P.A.-C. [address] [place] [phone] Referral ID Status Reason Start Date Expiration Date Visits Requ ested Visits Authorized [id number] Closed 03/17/2021 03/17/2022 1 1 Encounter Details Date Type Department Care Team Description 03/24/2021 Hospital Encounter Department of Michael Noble Wrist Left Radiology jimmy Patel Jr., P.A.-C. [place], [place] 200 [facility] [address] [place] [phone] Social History Tobacco Use Types Packs/Day Years [...] or relatives? How often do you attend episcopalian or Patient refused 2021 druze services? Do you belong to any clubs or No 05/17/2022 organizations such as episcopalian groups, unions, fraternal or athletic groups, or [...] Procedure Name Priority Date/Time Associated Comments Diagnosis MR WRIST LEFT RAD - Routine 03/24/2021 1:05 Pain Wrist Left Results for this WITHOUT IV (most inpatients PM CDT procedure a re in CONTRAST and all the results outpatients) section. documented in this encounter Results MR Wrist Left without IV Contrast (03/24/2021 1:05 PM CDT) Anatomical Region Laterality Modality Upper Extremity, Wrist, Musculoskeletal RST LOS, Left Magnetic Resonance Musculoskeletal ARZ LOS, Muskuloskeletal FLA LOS Specimen (Source) Anatomical Collection Method Collection Time Re ceived Time Location / / Volume Laterality 03/24/2021 1:05 PM CDT Impressions 03/24/2021 1:12 PM CDT Limited noncontrast MRI of the left wrist. Exam was performed at 1.5 Lucy due to the presence of a stimu lator device. The patient could tolerate only axial T1 and T2 and sagittal T1 crystal ges and declined completing the exam due to pain and discomfort. The limited sequences available make it difficult to definitively evaluate the scapholunate ligament. However, the vola r band is thickened and indistinct with increased T2 signal compatible with a hi gh-grade partial-thickness tear. Similar but less marked changes involving the do rsal band. Small multiloculated ganglion cyst over the volar aspect of the radioc arpal joint. Dorsal stance of the lunate. Mild ECU tendinopathy at the lev el of the ulnar styloid. The flexor and extensor tendons are otherwise normal in appearance without evidence of tenosynovitis. Mild dorsal positioning o f the distal ulna in relation to the sigmoid notch. Bifid median nerve within the carpal tunnel (series 3, image 20). Narrative 03/24/2021 1:12 PM CDT EXAM: ??MR WRIST LEFT WITHOUT IV CONTRAST COMPARISON: ??Radiographs 03/03/2021 and Michael Noble Jr., P.A.-C. IMG MRI PROCEDURES documented in this encounter Visit Diagnoses Diagnosis Pain Wrist Left documented in this encounter Additional Health Concerns Assessment Noted Time PHQ-9 Depression Total Score: 16 02/11/2021 12:00 AM C DT documented as of this encounter
--- OUTSIDE RECORDS SUMMARY | 2022-07-06 14:52 | XMS_ITS | Encounter Summary ---
:1965 Author Organization [facility] Address [address] [place] [address] Care Team Providers Name Role Phone Unavailable Primary Care Provider Unavailable Reason for Visit Reason Comments Communication Encounter Details Date Type Department Care Team Description 02/19/2021 Clinical Communication Department of Rossy Benjamin Neurologic Surgery [place], [place] Ph.D. [address] [place] [address] 200 [place] [phone] Social History Tobacco Use Types Packs/Day Years [...] or relatives? How often do you attend taoism or Patient refused 2021 jain services? Do you belong to any clubs or No 05/17/2022 organizations such as taoism groups, unions, fraternal or athletic groups, or [...] this encounter Miscellaneous Notes Telephone Encounter - Donna Phan R.N. - 02/19/2021 1:19 PM CDT I spoke with Dr. Benjamin. Okay to add on in any slot. Please schedule after CT-A. documented in this encounter Plan of Treatment Not on filedocumented as of this encounter Visit Diagnoses Not on filedocumented in this encounter Additional Health Concerns Assessment Noted Time PHQ-9 Depression Total Score: 16 02/11/2021 12:00 AM C DT documented as of this encounter
--- OUTSIDE RECORDS SUMMARY | 2022-07-06 14:52 | XMS_ITS | Encounter Summary ---
:1965 Author Organization [facility] Address [address] [place] [address] Care Team Providers Name Role Phone Unavailable Primary Care Provider Unavailable Encounter Details Date Type Department Care Team Description 05/04/2021 Clinical Communication Department of Dario Noel , Orthopedic Surgery in [place], [place] [address] [place] [address] 200 [place] [phone] Social History Tobacco Use Types Packs/Day Years [...] you attend confucianist or Patient refused 2021 zoroastrianism services? Do [...] this encounter Miscellaneous Notes Telephone Encounter - Michael Noble Jr., P.A.-C. - 05/04/2021 12:42 PM CDT I spoke with Dr. Noel. He would prefer to see her in clinic to discuss further. We can also review her MRI with her. I will place a clinic order Thanks Michael Telephone Encounter - Michael Noble Jr., P.A.-C. - 05/04/2021 9:26 AM CDT Please try to contact again. If unable, please send a certified letter. Thank you for all your help Michael documented in this encounter Plan of Treatment Not on filedocumented as of this encounter Visit Diagnoses Not on filedocumented in this encounter Additional Health Concerns Assessment Noted Time PHQ-9 Depression Total Score: 16 02/11/2021 12:00 AM C DT documented as of this encounter
--- OUTSIDE RECORDS SUMMARY | 2022-07-06 14:52 | XMS_ITS | Encounter Summary ---
:[address] [facility] Address [address] [place] [address] Care Team Providers Name Role Phone Unavailable Primary Care Provider Unavailable Reason for Visit Reason Comments Pre-scheduling Questionnaire Hand Pre-Scheduling Qu estionnaire Encounter Details Date Type Department Care Team Description 03/16/2021 Clinical Department of Prescheduling, Pre-scheduli ng Communication Orthopedic Surgery Provider Question elizabeth ( in [place], Hand Pre-Sched uling [place] Questionnaire) [address] [place] [phone] Social History Tobacco Use Types Packs/Day Years [...] you attend hindu or Patient refused 2021 church services? Do [...] this encounter Miscellaneous Notes Telephone Encounter - Minerva Reyes - 03/16/2021 3:34 PM CDT Hand Pre-Scheduling Questionnaire documented in this encounter Plan of Treatment Not on filedocumented as of this encounter Visit Diagnoses Not on filedocumented in this encounter Additional Health Concerns Assessment Noted Time PHQ-9 Depression Total Score: 16 02/11/2021 12:00 AM C DT documented as of this encounter
--- OUTSIDE RECORDS SUMMARY | 2022-07-06 14:52 | XMS_ITS | Encounter Summary ---
:1965 Author Organization [facility] Address [address] [place] [address] Care Team Providers Name Role Phone Unavailable Primary Care Provider Unavailable Reason for Visit Reason Comments Pre-visit Intake Encounter Details Date Type Department Care Team Description 04/15/2021 Clinical Communication Department of Robert Diehl e-visit Intake Neurology in [place], [facility] [place], [place] [address] [place] [phone] [place], [place] [phone] (Work) [phone] Social History Tobacco Use Types Packs/Day Years [...] you attend lutheran or Patient refused 2021 latter day services? [...]
--- OUTSIDE RECORDS SUMMARY | 2022-07-06 14:52 | XMS_ITS | Encounter Summary ---
:1965 Author Organization [facility] Address [address] [place] [address] Care Team Providers Name Role Phone Unavailable Primary Care Provider Unavailable Reason for Referral Outpatient (Routine) - Closed Specialty Diagnoses / Procedures Referred By Contact Refer red To Contact Orthopedic Surgery Dario Noel M .D. [facility] 200 [place] [address] Referral ID Status Reason Start Date Expiration Date Visits Requ ested Visits Authorized [id number] Closed 06/08/2021 06/08/2022 1 1 Physical Therapy (Routine) - Closed Specialty Diagnoses / Procedures Referred By Contact Refer red To Contact Diagnoses Dissociation Scapholunate Left Dario Noel M.D. [facility] Procedures PT or OT eval and treat (first available) [address] [place] [phone] Referral ID Status Reason Start Date Expiration Date Visits Requ ested Visits Authorized [id number] Closed 06/08/2021 06/08/2022 99 99 Outpatient (Routine) - Closed Specialty Diagnoses / Procedures Referred By Contact Refer red To Contact Diagnoses Dissociation Scapholunate Left Michael Downs M.D. [facility] Procedures ORS Cast Room Visit [address] [place] [phone] Referral ID Status Reason Start Date Expiration Date Visits Requ ested Visits Authorized [id number] Closed 05/08/2021 05/08/2022 1 1 Reason for Visit Reason Comments Cast Check Follow-up Outpatient (Routine) - Closed Specialty Diagnoses / Procedures Referred By Contact Refer red To Contact Diagnoses Dissociation Scapholunate Left Michael Downs M.D. [facility] Procedures ORS Cast Room Visit [address] [place] [phone] Referral ID Status Reason Start Date Expiration Date Visits Requ ested Visits Authorized [id number] Closed 05/08/2021 05/08/2022 1 1 Encounter Details Date Type Department Care Team Description 06/08/2021 Hospital Encounter Department of Paul Downs M.D. [address] [place] [phone] Dissociation Orthopedic Surgery Dario Noel M.D. [address] [place] [phone] Scapholunate Left in [place], [place] [address] [place] [phone] Social History Tobacco Use Types Packs/Day Years [...] you attend voodoo or Patient refused 2021 islam services? Do [...] the food you bought just Often tr scout 05/17/2022 didn't last and you didn't have [...] daily documented as of this encounter Procedure Dario Christopehr M.D. - 06/08/2021 11:00 AM CDT HAND SURGERY CASTROOM NOTE DIAGNOSIS: 1. Left S-L dissociation PROCEDURE: 1. Left upper extremity cast removal HISTORY OF PRESENT ILLNESS Angie Mosquera is a 56 y.o. female who returns today for the following injury. She has spent 6 weeks in a cast at this point following S-L injury. Again, she is on antibiotics for injection and has a recent history of vertebral artery occlusion. PHYSICAL EXAMINATION: Well appearing. Digits are warm and well perfused with brisk capillary refill. RADIOLOGY: None new today IMPRESSION/ASSESSMENT #1 6 weeks s/p casting for left SL dissociation DIAGNOSIS: Diagnosis Plan 1. Dissociation Scapholunate Left ORS Cast Room Visit ORS Cast Room Visit PT or OT eval and treat (first available) PLAN: I did discuss the findings and post-operative course with the patient. I think she is doing remarkably coping with her casting. We agreed to begin therapy with ROM. I will see her back in 6 weeks. At that time hopefully her symptoms will have abated. Fortunately, she tolerated the casting well. I haveanswered all of her questions today. She has my contact information. She should feel free to reach out should she have any further questions or concerns. Otherwise, I will see her back in 6 weeks time.. Dario Noel M.D. 06/09/21 8:23 AM CDT documented in this encounter Plan of Treatment Scheduled Orders Name Type Priority Associated Diagnoses Order S chedule ORS Cast Room Procedures Routine Dissociation Once for 1 Occ urrences Visit Scapholunate Left starting 0 06/08/2021 until Scheduled Referrals Name Type Priority Associated Order Schedule Diagnoses Orthopedic Surgery Outpatient Referral Routine Ex pected: office visit 07/20/2021 (clinic) (Approximate), Expires: 06/08/2024 documented as of this encounter Visit Diagnoses Diagnosis Dissociation Scapholunate Left documented in this encounter Additional Health Concerns Assessment Noted Time PHQ-9 Depression Total Score: 16 02/11/2021 12:00 AM C DT documented as of this encounter
--- OUTSIDE RECORDS SUMMARY | 2022-07-06 14:52 | XMS_ITS | Encounter Summary ---
:1965 Author Organization [facility] Address 200 [place] [address] Care Team Providers Name Role Phone Unavailable Primary Care Provider Unavailable Reason for Referral Outpatient (Routine) - Closed Specialty Diagnoses / Procedures Referred By Contact Refer red To Contact Neurological Surgery Jeannette Cote [place] [place] 200 [place] [address] Referral ID Status Reason Start Date Expiration Date Visits Requ ested Visits Authorized [id number] Closed 02/17/2021 02/17/2022 1 1 Scheduling Instructions Please schedule with Chief A Neurosurger y Service (Dr. Suhail Benjamin). 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 [facility] Procedures CT Head Neck Angiogram with IV Contrast 200 [place] [address] Referral ID Status Reason Start Date Expiration Date Visits Requ ested Visits Authorized [id number] Closed 02/17/2021 02/17/2022 1 1 Encounter Details Date Type Department Care Team Description 02/17/2021 Orders Only Department of Jeannette Cote Cerebral Infarction Neurologic Surgery jimmy Souza M.D. Due To Embolism Right [place], [place] [address] [facility] Vertebral Artery (HCC) [address] [place], [place] (Primary Dx) [place] [phone] Social History Tobacco Use Types Packs/Day Years [...] you attend anabaptist or Patient refused 2021 yazdanism services? Do [...] Name Type Priority Associated Order Schedule Diagnoses Neurological Surgery Outpatient Referral Routine Expected: office visit (clinic) 2020 (Approximate), Expires: 02/18/2024 documented as of this encounter Results CT Head Neck Angiogram with IV Contrast (03/12/2021 10:29 AM CDT) Anatomical Region Laterality Modality Head and Neck, Neuroradiology RST LOS, N/A C omputed Tomography, Computed Neuroradiology ARZ LOS, Neuroradiology T omography FLA [facility] Specimen (Source) Anatomical Collection Method [...] ane urysms. 3. 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 Otherwise crow of Wi llis is intact. Dolichoectasia of [...] 5 mm left paraclinoid ICA aneurys m (533) and 2 mm left supraclinoid aneurysm (557). Otherwise crow of Wi llis is intact. Dolichoectasia of [...] ane urysms. 3. 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 Jeannette NIELSON CT PROCEDURES documented in this encounter Visit Diagnoses Diagnosis Cerebral Infarction Due To Embolism Righ t Vertebral Artery (HCC) - Primary Cerebral Infarction Due To Embolism Righ t Vertebral Artery (HCC) documented in this encounter Additional Health Concerns Assessment Noted Time PHQ-9 Depression Total Score: 16 02/11/2021 12:00 AM C DT documented as of this encounter
--- OUTSIDE RECORDS SUMMARY | 2022-07-06 14:52 | XMS_ITS | Encounter Summary ---
:1965 Author Organization [facility] Address [address] [place] [address] Care Team Providers Name Role Phone Unavailable Primary Care Provider Unavailable Reason for Visit Reason Comments Vertigo and vision problems [facility] Encounter Details Date Type Department Care Team Description 02/18/2021 Clinical Communication Department of Fazal, Robert mendosa and vision Neurology in [place] problems ([facility]) [place], [facility] [address] [place], [place] [address] [place] [phone] [place], [place] [phone] (Work) [phone] Social History Tobacco Use Types Packs/Day Years [...] you attend amish or Patient refused 2021 methodist services? Do you belong to any clubs [...] this encounter Miscellaneous Notes Telephone Encounter - Monica Shah R.N. - 02/19/2021 11:03 AM CDT See 02/19/21 clinical communication encounter. Telephone Encounter - Olivia Pedroza - 02/18/2021 4:41 PM CDT Patient calling: She states Dr. Diehl was going to prescribe her something for vertigo (which is really bad right now). She would like this addressed HALI. Also, would also like to discuss her eyesight. or son documented in this encounter Plan of Treatment Not on filedocumented as of this encounter Visit Diagnoses Not on filedocumented in this encounter Additional Health Concerns Assessment Noted Time PHQ-9 Depression Total Score: 16 02/11/2021 12:00 AM C DT documented as of this encounter
--- OUTSIDE RECORDS SUMMARY | 2022-07-06 14:52 | XMS_ITS | Encounter Summary ---
:1965 Author Organization [facility] [place] [facility] Address [address] [place] [address] Care Team Providers Name Role Phone Unavailable Primary Care Provider Unavailable Reason for Visit Outpatient (Routine) - Closed Specialty Diagnoses / Procedures Referred By Contact Refer red To Contact Neurological Surgery Jeannette [facility] [place] [facility] [place] M.D. [address] [place] [phone] Referral ID Status Reason Start Date Expiration Date Visits Requ ested Visits Authorized [id number] Closed 02/17/2021 02/17/2022 1 1 Encounter Details Date Type Department Care Team Description 03/12/2021 Office Visit Department of Gonzalez Benjamin Neurologic Surgery in Lilian Jang, Cinthya castorena ([facility]) (Primary [place], [place] Ph.D. Dx) [address] [place] [address] [place] [phone] Social History Tobacco Use Types Packs/Day [...] or relatives? How often do you attend anglican or Patient refused 2021 samaritan services? Do you belong to any clubs or No 05/17/2022 organizations such as anglican groups, unions, fraiVilka or athletic groups, or school groups? How [...] Sign Reading Time Taken Comments Blood Pressure - - Pulse - - Temperature 36.1 ??C (97 ??F) 03/12/2021 11:38 AM CDT Respiratory Rate - - Oxygen Saturation - - Inhaled Oxygen Concentration - - Weight 78 kg (171 lb 15.3 oz) 03/12/2021 11:38 AM CDT Height 151 cm (4' 11.45) 03/12/2021 11:38 AM CDT Body Mass Index 34.21 03/12/2021 11:38 AM CDT documented in this encounter Progress Notes Suhail Benjamin M.D., Ph.D. - 03/12/2021 1:00 PM CDT Mrs. 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 Since the procedure and her hospitalization for her cerebrovascular accident, the patient has been doing fairly well. The symptoms she had onadmission have improved, and she certainly has not experienced any new symptoms suggestive of recurrent ischemia. I reviewed her CTA of the head and neck, and this demonstrates occlusion of the cervical vertebral artery on the right side to the level of the Amplatzer plug and coils that were placed. There is some back filling of the intracranial right vertebral artery to the level of the previously seen dissection, with minimal, if any, filling of the dissecting pseudoaneurysm. As the flow in the right vertebral artery is now retrograde, I estimate a minimal chance of recurrent ischemia from the dissection. The patient is currently taking a full-strength aspirin daily, and I recommended continuing this for at least 1 year. If at that time she has had no recurrent ischemia, she can be transitionedto a baby aspirin. I would continue some anti-platelet therapy indefinitely given her history of dissections. I also counseled the patient on the importance of smoking cessation, which she unfortunately continues to do. The patient is attempting to quit, and has been taking Wellbutrin for assistance. At this time, the patient does not require further scheduled neurosurgical follow-up. She will followup with Dr. Diehl in stroke neurology next month. She will contact us in the interim if any furtherquestions or issues arise. I spent 15 minutes in consultation with the patient, >50% of this time was spent in counseling and coordination of care. All questions were answered, and the patient/family demonstrated agreement with the plan. Realistic expectations were provided. There were no barriers to our conversation. documented in this encounter Plan of Treatment Not on filedocumented as of this encounter Visit Diagnoses Diagnosis Dissection Vertebral Artery (HCC) - Prim monisha documented in this encounter Additional Health Concerns Assessment Noted Time PHQ-9 Depression Total Score: 16 02/11/2021 12:00 AM C DT documented as of this encounter
--- OUTSIDE RECORDS SUMMARY | 2022-07-06 14:52 | XMS_ITS | Encounter Summary ---
:1965 Author Organization [facility] Address [address] [place] [address] Care Team Providers Name Role Phone Unavailable Primary Care Provider Unavailable Reason for Visit Reason Comments Follow-up [facility] Patient Encounter Details Date Type Department Care Team Description 02/25/2021 Clinical [facility] Neurology jimmy Celaya M.D. Patient) [place], [facility] [address] [place], [place] [address] [place] [phone] [place], [place] [phone] (Work) [phone] Social History Tobacco Use Types Packs/Day Years [...] or relatives? How often do you attend buddhist or Patient refused 2021 amish services? Do you belong to any clubs or No 05/17/2022 organizations such as buddhist groups, unions, fraternal or athletic groups, or [...] Telephone Encounter - Robert Diehl M.D. - 02/25/2021 5:18 PM CDT Thank you agree Telephone Encounter - Elvira Villalta R.N. - 02/25/2021 4:31 PM CDT I called the patient. She is a challenging historian, but states she has a hazy right eye; it is shadowy so much that it makes her feel like she is seeing someone on the side of her vision, but no one is there. She states she can see straight ahead. Ms. Mosquera first states Dr. Diehl was checking her vision when she was in the hospital last week and that it has been hazy but then she states it is suddenly getting worse. She denies weakness or numbness/tingling on either side of her body but states when she drinks the liquid runs out the side of her mouth. She states she can get a ride to her local ED so I advised she report to the [facility] as soon as possible to be physically evaluated. I will notify Dr. Diehl of the patient's latest symptoms and recommendation to seek emergency treatment. RECOMMENDED LEVEL OF CARE. The patient/caller is willing and able to follow the nurse's recommendation. RESPONSE TO ADVICE GIVEN. Patient/caller able to teach back. REFERENCES UTILIZED. Nursing clinical judgment utilized. Other interventions or information: Provider advice. TYPE OF PHONE CALL. Symptom assessment. Telephone Encounter - Allyssa Amaya - 02/25/2021 3:30 PM CDT Patient calls in saying that she feels her eyes are getting worse, especially her right eye. She said they are shadowy and bad. She said she sees people (shadows). documented in this encounter Plan of Treatment Not on filedocumented as of this encounter Visit Diagnoses Not on filedocumented in this encounter Additional Health Concerns Assessment Noted Time PHQ-9 Depression Total Score: 16 02/11/2021 12:00 AM C DT documented as of this encounter
--- OUTSIDE RECORDS SUMMARY | 2022-07-06 14:52 | XMS_ITS | Encounter Summary ---
:1965 Author Organization [facility] Address [address] [place] [address] Care Team Providers Name Role Phone Unavailable Primary Care Provider Unavailable Reason for Referral Outpatient (Routine) - Closed Specialty Diagnoses / Procedures Referred By Contact Refer red To Contact Diagnoses Dissociation Scapholunate Left Michael Downs M.D. [facility] Procedures ORS Cast Room Visit [address] [place] [phone] Referral ID Status Reason Start Date Expiration Date Visits Requ ested Visits Authorized [id number] Closed 05/08/2021 05/08/2022 1 1 Reason for Visit Reason Comments Follow-up Outpatient (Routine) - Closed Specialty Diagnoses / Procedures Referred By Contact Refer red To Contact Diagnoses Dissociation Scapholunate Left Michael Downs M.D. [facility] Procedures ORS Cast Room Visit [address] [place] [phone] Referral ID Status Reason Start Date Expiration Date Visits Requ ested Visits Authorized [id number] Closed 05/08/2021 05/08/2022 1 1 Encounter Details Date Type Department Care Team Description 05/08/2021 Hospital Encounter Department of Paul Downs M.D. [address] [place] [address] [phone] Dissociation Orthopedic Surgery Dario Noel M.D. [address] [place] [phone] Scapkimiunate Left in [place], [place] [address] [place] [phone] Social History Tobacco Use Types Packs/Day Years [...] you attend mormonism or Patient refused 2021 roman catholic services? [...] encounter Procedure Notes Michael Downs M.D. - 05/08/2021 12:00 PM CDT HAND SURGERY CASTROOM NOTE DIAGNOSIS: 1. Left S-L dissociation PROCEDURE: 1. Left upper extremity water proof short-arm thumb spica cast application by cast room personnel SUBJECTIVE: Angie Mosquera is a 56 y.o. female who returns to the castroom for evaluation of her left wrist. Shortly after we saw the patient in February, the patient underwent an irrigation and debridement of herleft shoulder for infection. The implants were retained and she was started on IV antibiotics. She currently is still on these IV antibiotics for treatment of this infection. At her last visit, we had placed her in a short-arm cast for immobilization of the wrist, but unfortunately this got wet in the shower and fell off the patient. The patient does not believe she has hadadequate rest of this wrists and her pain continues to increase. She continues to deny any numbness or paresthesias. She also denies any fevers, chills or sweats. She has a history of fibromyalgia and is on chronic opioids as well as cannabis use for pain control. She also smokes a half pack per day of cigarettes. PHYSICAL EXAMINATION: General: Patient is awake, follows commands, not in acute distress. Left Upper Extremity: The left hand and wrist continued to have no open wounds or overt signs of trauma. She continues to be diffusely tender about the left wrist. Otherwise her exam is benign with intact motor and sensory function. She is able to make a composite fist and extend her fingers fully. She is able to fire FPL, EPL, finger flexors/extensors, wrist flexors/extensors, and interossei with good effect. Sensation intact in the median, ulnar, and radial nerve distributions. Fingers warm and well perfused, capillary refill less than 2 seconds. IMAGING STUDIES: MRI obtained the day of her last visit was limited secondary to the patient's tolerance of the procedure, but it was noted that there is a likely SL ligament injury as suspected. ASSESSMENT: Diagnosis Plan 1. Dissociation Scapholunate Left ORS Cast Room Visit ORS Cast Room Visit We discussed the patient's diagnosis with her in detail. We explained that with her concurrent issues with her infected left shoulder, previous stroke, and chronic opioid and nicotine use we would still not recommend surgery at this time. We would recommend optimization of non operative treatment strategies. Again, we can not move forward with any steroid injections given her ongoing infection. Giventhe fact that the patient does not feel issue if she was able to give her left wrist an adequate time of rest, we will place an additional short- arm thumb spica cast, this time using waterproof material to prevent the issues she had with showering. We will see her back in 4 weeks time for repeat evalua tion. PLAN: - A short-arm cast was applied by the castroom glass technician/installer - The patient is nonweightbearing bearing on the left upper extremity - Must keep cast clean, dry, and intact - patient encouraged to continue range of motion of exposed digits - Patient will be seen in the castroom in four weeks for cast removal Electronically signed by: Michael Downs M.D. 05/08/21 11:50 AM CDT documented in this encounter Plan of Treatment Scheduled Orders Name Type Priority Associated Diagnoses Order S chedule ORS Cast Room Procedures Routine Dissociation Once for 1 Occ urrences Visit Scapholunate Left starting 0 05/08/2021 until 1 documented as of this encounter Visit Diagnoses Diagnosis Dissociation Scapholunate Left documented in this encounter Additional Health Concerns Assessment Noted Time PHQ-9 Depression Total Score: 16 02/11/2021 12:00 AM C DT documented as of this encounter
--- OUTSIDE RECORDS SUMMARY | 2022-07-06 14:52 | XMS_ITS | Encounter Summary ---
:1965 Author Organization [facility] Address [address] [place] [address] Care Team Providers Name Role Phone Unavailable Primary Care Provider Unavailable Reason for Referral Outpatient (Routine) - Closed Specialty Diagnoses / Procedures Referred By Contact Refer red To Contact Diagnoses Pain Wrist Left Michael Noble Jr., [facility] Procedures PM Device interrogation (clinic) P.A.-C. [address] [place] [phone] Referral ID Status Reason Start Date Expiration Date Visits Requ ested Visits Authorized [id number] Closed 03/17/2021 03/17/2022 1 1 RI/CAT/PET Scan (Routine) - Closed Specialty Diagnoses / Procedures Referred By Contact Refer red To Contact Radiology Diagnoses Pain Wrist Left Michael Noble Jr., [facility] Procedures MR Wrist Left without IV Contrast P.A.-C. 200 [place], [place] [phone] Referral ID Status Reason Start Date Expiration Date Visits Requ ested Visits Authorized [id number] Closed 03/17/2021 03/17/2022 1 1 Encounter Details Date Type Department Care Team Description 03/17/2021 Orders Only Department of Michael Noble Wris t Left Orthopedic Surgery in Tona Patel Jr. (Primary Dx) [place], [place] [address] [place] [phone] Social History Tobacco Use Types Packs/Day Years [...] you attend sikh or Patient refused 2021 confucianist services? Do [...] Type Priority Associated Diagnoses Order S chedule PM Device interrogation Procedures Routine Pain Wrist Left E xpected: (clinic) 03/17/2021 (Approximate), Expires: 2023 documented as of this encounter Results MR Wrist Left without [...] Diagnoses Diagnosis Pain Wrist Left - Primary Pain Wrist Left documented in this encounter Additional Health Concerns Assessment Noted Time PHQ-9 Depression Total Score: 16 02/11/2021 12:00 AM C DT documented as of this encounter
--- OUTSIDE RECORDS SUMMARY | 2022-07-06 14:52 | XMS_ITS | Encounter Summary ---
:1965 Author Organization [facility] Address [address] [place] [address] Care Team Providers Name Role Phone Unavailable Primary Care Provider Unavailable Reason for Visit Reason Comments Med Refill Encounter Details Date Type Department Care Team Description 06/04/2021 Refill Department of Orthopedic Pulos, Dario Alejo M.D. Med Refill Surgery in [address] [phone] [place] [address] [place] [phone] Social History Tobacco Use Types Packs/Day Years [...] or relatives? How often do you attend islam or Patient refused 2021 islam services? Do you belong to any clubs or No 05/17/2022 organizations such as islam groups, unions, fraternal or athletic groups, or [...]
--- OUTSIDE RECORDS SUMMARY | 2022-07-06 14:52 | XMS_ITS | Encounter Summary ---
:1965 Author Organization [facility] Address [address] [place] [address] Care Team Providers Name Role Phone Unavailable Primary Care Provider Unavailable Reason for Referral Outpatient (Routine) - Closed Specialty Diagnoses / Procedures Referred By Contact Refer red To Contact Orthopedic Surgery Michael Noble [facility] , P.A.-C. [address] [place] [phone] Referral ID Status Reason Start Date Expiration Date Visits Requ ested Visits Authorized [id number] Closed 05/04/2021 05/04/2022 1 1 Scheduling Instructions Pulos Encounter Details Date Type Department Care Team Description 05/04/2021 Orders Only Department of Orthopedic Mirna Noble Surgery in [facility] , P.A.- C. [address] [place] [place] [phone] (Wo rk) Social History Tobacco Use Types [...] or relatives? How often do you attend mosque or Patient refused 2021 mosque services? Do you belong to any clubs or No 05/17/2022 organizations such as mosque groups, unions, fraGeelbe or athletic groups, or school groups? How [...] Outpatient Referral Routine Ex pected: office visit 05/04/2021 (clinic) (Approximate), Expires: 05/04/2024 documented as of this encounter Visit Diagnoses Not on filedocumented in this encounter Additional Health Concerns Assessment Noted Time PHQ-9 Depression Total Score: 16 02/11/2021 12:00 AM C DT documented as of this encounter
--- OUTSIDE RECORDS SUMMARY | 2022-07-06 14:52 | XMS_ITS | Encounter Summary ---
:1965 Author Organization [facility] Address [address] [place] [address] Care Team Providers Name Role Phone Unavailable Primary Care Provider Unavailable Reason for Visit Reason Comments Pre-visit Intake Encounter Details Date Type Department Care Team Description 03/11/2021 Clinical Communication Department of Sourav Pre- visit Intake Neurologic Surgery Lilian Jang, in [place], Ph.D. [place] [address] [place] [phone] Social History Tobacco Use Types Packs/Day Years [...] or relatives? How often do you attend bahai or Patient refused 2021 restorationist services? Do you belong to any clubs or No 05/17/2022 organizations such as bahai groups, unions, fraternal or athletic groups, or [...] documented as of this encounter Miscellaneous Notes Addendum Note - Denise Andrade - 03/11/2021 10:14 AM CDT Addended by: DENISE ANDRADE on: 03/11/2021 10:14 AM Modules accepted: Orders documented in this encounter Plan of Treatment Not on filedocumented as of this encounter Visit Diagnoses Not on filedocumented in this encounter Additional Health Concerns Assessment Noted Time PHQ-9 Depression Total Score: 16 02/11/2021 12:00 AM C DT documented as of this encounter
--- OUTSIDE RECORDS SUMMARY | 2022-07-06 14:52 | XMS_ITS | Encounter Summary ---
:1965 Author Organization [facility] Address [address] [place] [address] Care Team Providers Name Role Phone Unavailable Primary Care Provider Unavailable Reason for Visit Reason Comments pain medication Encounter Details Date Type Department Care Team Description 06/04/2021 Clinical Communication Department of [place], Dario willard medication Orthopedic Surgery Lilian Alejo in [place], [facility] [place], [place] [address] [place] [phone] [place], [place] [phone] (Work) [phone] Social History Tobacco Use Types Packs/Day Years [...] you attend restorationist or Patient refused 2021 adventist services? Do [...] Encounter - Michael Noble Jr., P.A.-C. - 06/04/2021 1:53 PM CDT I spoke with the patient today in regards to her telephone message. She reports he still occasionally having discomfort in the wrist. She feels this pain is due to her cast being loose. She is set to see us on 06/08/2021. She currently has a pain contract with her pain specialist. She also uses medical cannabis to help with her pain. She denies any new injuries to the left upper extremity since her last visit. She has completed her course of IV antibiotics for her left shoulder infection. She deniesany fevers at this time. During our conversation the patient brought up several topics including herstroke, coronary stents, and pain management. I informed the patient that we are unlikely to prescribe any narcotic pain medications at this time. Her injury happened several weeks ago. Patient felt comfortable with our plan. We will reassess the patient at her visit on 06/08/2021 Telephone Encounter - Aminata Glover - 06/04/2021 11:09 AM CDT Patient has an appt on Tuesday, but calls today requesting additional pain medication. She is not sure what she wants/Type. She was informed that as she is on chronic opioids from Pain Management and Cannabis, coupled with the fact she has not had surgical intervention, she would not be a candidate foradditional opioids meds/scripts. Patient would like a call - [phone] documented in this encounter Plan of Treatment Not on filedocumented as of this encounter Visit Diagnoses Not on filedocumented in this encounter Additional Health Concerns Assessment Noted Time PHQ-9 Depression Total Score: 16 02/11/2021 12:00 AM C DT documented as of this encounter
--- OUTSIDE RECORDS SUMMARY | 2022-07-06 14:52 | XMS_ITS | Encounter Summary ---
:1965 Author Organization [facility] Address [address] [place] [address] Care Team Providers Name Role Phone Unavailable Primary Care Provider Unavailable Reason for Visit Reason Comments Nicotine Dependence Encounter Details Date Type Department Care Team Description 03/10/2021 Clinical Communication Department of [facility], Carolyn Mccarthy cotine Dependence Nicotine M.S., Dependence, C.T.T.S., [facility] in [address] [place] [phone] [place], [place] [phone] (Work) [phone] Social History Tobacco Use Types Packs/Day Years [...] you attend sabianist or Patient refused 2021 tenriism services? Do [...]
--- OUTSIDE RECORDS SUMMARY | 2022-07-06 14:52 | XMS_ITS | Encounter Summary ---
:1965 Author Organization [facility] Address [address] [place] [address] Care Team Providers Name Role Phone Unavailable Primary Care Provider Unavailable Reason for Visit Reason Comments Post Hospital Follow-up Encounter Details Date Type Department Care Team Description 02/19/2021 Clinical Communication Department of [facility], [facility] Neurology in Monica Alvarado R.N. Follow-up [place], [place] [address] [place] [address] Social History Tobacco Use Types [...] you attend holiness or Patient refused 2021 moravian services? Do [...] this encounter Miscellaneous Notes Telephone Encounter - Elvira Villalta R.N. - 02/25/2021 4:41 PM CDT Patient has been told that Dr. Diehl recommends PCP order all meds. I spoke with her today and she did not mention being dizzy or needing a prescription. Telephone Encounter - Allyssa Amaya - 02/23/2021 4:00 PM CDT Ms. Mosquera calls in now indicating that Dr. Diehl is the one who must fill the meclizine Rx. She just had surgery and it is his responsibility to fill it. I explained to her that Dr. Diehl has indicated it should go to the PCP. This did not sit well with her. Telephone Encounter - Robert Diehl M.D. - 02/19/2021 2:05 PM CDT Yes thank you for the clarification Telephone Encounter - Robert Diehl M.D. - 02/19/2021 2:04 PM CDT Yes thank you for the clarification. Telephone Encounter - Robert Diehl M.D. - 02/19/2021 11:16 AM CDT Thank you for the update All outpatient prescription requests should be forwarded to her primary care provider locally. Telephone Encounter - Monica Shah R.N. - 02/19/2021 10:47 AM CDT SUBJECTIVE CHIEF COMPLAINT / REASON FOR CALL Post Hospital Follow-up Information Discussed POST HOSPITAL DISCHARGE TELEPHONE CALL Discharge Diagnosis: Cerebral 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 (HCC) s/p vertebral artery embolization 02/16/21 Date of Admission: 02/10/21 Date of Discharge: 02/17/21 Information obtained from patient. During a telephone conversation the following questions were discussed: ?? How is the patient feeling overall? Okay. ?? Does patient report any new symptoms of stroke? Yes - Ms. Mosquera reports since discharging from the hospital she has worsening vertigo and right eye shadowiness. She reports headache and right facial pain rated 7/10. She reports she has fallen twice today and hit her head once on the carpeted floor. She denies losing consciousness. She reports she got a bloody nose today after blowing her nose,it has since stopped. ?? Does the patient/family/caregiver have any questions about the instructions they were given when they left the hospital regarding care at home? No ?? Was the patient started on any new medications? Ms. Mosquera reports she has not yet picked up [id number] ASA daily and 80 mg Atorvastatin at bedtime prescriptions from her local pharmacy. ?? Were they able to demonstrate good understanding of these new medications? No and Teach back medication education provided. ?? Did they verbalize understanding of risks for stroke? Yes ?? Signs and symptoms, when to call 911? Yes ?? Does the patient have a follow up appointment scheduled? Yes. Date: 04/17/21 With: Dr. Diehl. Neurosurgery and PCP to be scheduled. Were there any further questions or concerns related to medications? Yes - Ms. Mosquera is asking fora prescription to help with her vertigo. Per medication review she has been prescribed Meclizine 25 mg PO Q6 hours PRN. She reports she does not have this medication at home and does not know what happened to it. Post Hospitalization Care Discharge destination: home with outpatient PT and HHC PLAN Disposition/Recommendation: recommended immediate action: call 911, recommended to report to the nearest emergency department and recommended not to drive self Information/Education: patient/caller able to teach back Caller agreeable to plan of care: no --Ms. Mosquera says she will think about having her neighbor drive her to the local emergency room once talking more with her son. Declined having me call 911 for her. The following references were used: nursing clinical judgement and previous plan of care date: 02/17/21 documented in this encounter Plan of Treatment Not on filedocumented as of this encounter Visit Diagnoses Not on filedocumented in this encounter Additional Health Concerns Assessment Noted Time PHQ-9 Depression Total Score: 16 02/11/2021 12:00 AM C DT documented as of this encounter
--- OUTSIDE RECORDS SUMMARY | 2022-07-06 14:53 | XMS_ITS | Encounter Summary ---
:1965 Author Organization [facility] Address [address] [place] [address] Care Team Providers Name Role Phone Unavailable Primary Care Provider Unavailable Encounter Details Date Type Department Care Team Description 02/11/2021 Ancillary Procedure Department of Radiology Ridge Vega in [facility] raúl Quintana 200 [facility] 200 [place] [phone] (Wo rk) Social History Tobacco Use Types [...] you attend mormonism or Patient refused 2021 christian services? Do [...] Procedure Name Priority Date/Time Associated Comments Diagnosis INTERPRETATION OF RAD - Routine 02/11/2021 1:24 Result s for OUTSIDE MR HEAD (most inpatients AM CDT this pro cedure and all are in the outpatients) results section. documented in this encounter Results Interpretation of Outside MR Head (02/11/2021 1:26 AM CDT) Anatomical Region Laterality Modality Neuroradiology RST LOS, Neuroradiology ARZ LOS, N/A Magnetic Resonance Neuroradiology FLA LOS, Head, Other Specimen (Source) Anatomical Collection Method Collection Time Re ceived Time Location / / Volume Laterality 02/11/2021 1:48 PM CDT Impressions 02/11/2021 3:06 PM CDT 1. Increasing number of posterior circulation acute on subacute infarcts since 02/03/2021, as described. 2. Filling defect in the right distal V3 /V4 vertebral artery appear similar in extent, however there appears to be grea ter luminal narrowing with only minimal residual contrast filling at the level o f the thrombus. 3. Left paraclinoid and supraclinoid ane urysms are unchanged. Narrative 02/11/2021 3:06 PM CDT EXAM: ??INTERPRETATION OF OUTSIDE MR HEAD, INTERPRETATION OF OUTSIDE MR HEAD, INTERPRETATION OF OUTSIDE MR HEAD MR I brain with and without intravenous contrast, MRA head without contrast, and MRA neck with and without intravenous co ntrast on 02/10/2021. COMPARISON: ??MRI brain on 02/03/2021. M RA neck with and without contrast on 02/03/2021. CTA head/neck on 01/30/2021. FINDINGS: ?? Brain MRI: Previously seen areas of diff usion restriction on the MRI from 02/04/2020 have slightly diminished and there are new areas of diffusion restriction on the 02/10/2021 exam, for example involving the bilateral thalami (series 3 image 36), bilateral CLEANING ATTENDANT regio n (left greater than right, image 33), and bilateral cerebellar hemispheres (im age 30-31). Chronic-appearing infarcts in the left occipital lobe are unchanged since 09/19/2019. Chronic infarct in the right inferior cerebellar hemisphere is unchanged since 02/03/2021 but new since 09/19/2019. Right thalamic enhance ment is again noted and probably similar in appearance from the recent MRI dated 02/03/2021 when accounting for differences in modalities. The recently described focal enhancement in the left medial cerebellar hemisphere is present (series 8, image 24) but not as well seen on this exam, likely related to dif ferences in technique. HEAD MRA: Decreased signal in the right vertebral artery at the V3/V4 junction is likely related to the known dissectio n. Flow related signal reconstitutes in the mid right V4 segment prior to joinin g the basilar artery. The left PICA is well seen, however the right PICA is not definitely visualized, unchanged from the prior CTA. No new branch occlusion. 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 Th e 2 mm left supraclinoid ICA aneurysm does not appear significantly changed bu t is better evaluated on the prior CTA. Neck MRA: Filling defect in the right di stal V3/proximal V4 vertebral artery segments, appears similar in extent comp ared with MRI of 02/03/2021, however there appears to be increased narrowing of the vertebral artery lumen with only minimal residual luminal opacification a t the level of the thrombus (compare series 7 images 66-67 on the current exa m with series 15 images 22-18 on 02/03/2021). The great vessels arise from the aortic arch just in configuration. No stenosis at the great vessel origins. Patent orig ins of both vertebral arteries. The carotid arteries are normal in course an d caliber without significant stenosis or evidence of dissection. Procedure Note El Cruz M.D. - 1 EXAM: INTERPRETATION OF OUTSIDE MR HEAD, INTERPRETATION OF OUTSIDE MR HEAD, INTERPRETATION OF OUTSIDE MR HEAD MR I brain with and without intravenous contrast, MRA head without contrast, and MRA neck with and without intravenous co ntrast on 02/10/2021. COMPARISON: MRI brain on 02/03/2021. MRA neck with and without contrast on 02/03/2021. CTA head/neck on 01/30/2021. FINDINGS: Brain MRI: Previously seen areas of diff usion restriction on the MRI from 02/04/2020 have slightly diminished and there are new areas of diffusion restriction on the 02/10/2021 exam, for example involving the bilateral thalami (series 3 image 36), bilateral CLEANING ATTENDANT regio n (left greater than right, image 33), and bilateral cerebellar hemispheres (im age 30-31). Chronic-appearing infarcts in the left occipital lobe are unchanged since 09/19/2019. Chronic infarct in the right inferior cerebellar hemisphere is unchanged since 02/03/2021 but new since 09/19/2019. Right thalamic enhance ment is again noted and probably similar in appearance from the recent MRI dated 02/03/2021 when accounting for differences in modalities. The recently described focal enhancement in the left medial cerebellar hemisphere is present (series 8, image 24) but not as well seen on this exam, likely related to dif ferences in technique. HEAD MRA: Decreased signal in the right vertebral artery at the V3/V4 junction is likely related to the known dissectio n. Flow related signal reconstitutes in the mid right V4 segment prior to joinin g the basilar artery. The left PICA is well seen, however the right PICA is not definitely visualized, unchanged from the prior CTA. No new branch occlusion. 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 Th e 2 mm left supraclinoid ICA aneurysm does not appear significantly changed bu t is better evaluated on the prior CTA. Neck MRA: Filling defect in the right di stal V3/proximal V4 vertebral artery segments, appears similar in extent comp ared with MRI of 02/03/2021, however there appears to be increased narrowing of the vertebral artery lumen with only minimal residual luminal opacification a t the level of the thrombus (compare series 7 images 66-67 on the current exa m with series 15 images 22-18 on 02/03/2021). The great vessels arise from the aortic arch just in configuration. No stenosis at the great vessel origins. Patent orig ins of both vertebral arteries. The carotid arteries are normal in course an d caliber without significant stenosis or evidence of dissection. IMPRESSION: 1. Increasing number of posterior circul ation acute on subacute infarcts since 02/03/2021, as described. 2. Filling defect in the right distal V3 /V4 vertebral artery appear similar in extent, however there appears to be grea ter luminal narrowing with only minimal residual contrast filling at the level o f the thrombus. 3. Left paraclinoid and supraclinoid ane urysms are unchanged. Aleisha NIELSON MRI PROCEDURES Interpretation of Outside MR Head (02/11/2021 1:25 AM CDT) Anatomical Region Laterality Modality Neuroradiology RST LOS, Neuroradiology ARZ LOS, N/A Magnetic Resonance Neuroradiology FLA LOS, Head, Other Specimen (Source) Anatomical Collection Method Collection Time Re ceived Time Location / / Volume Laterality 02/11/2021 1:48 PM CDT Impressions 02/11/2021 3:06 PM CDT 1. Increasing number of posterior circulation acute on subacute infarcts since 02/03/2021, as described. 2. Filling defect in the right distal V3 /V4 vertebral artery appear similar in extent, however there appears to be grea ter luminal narrowing with only minimal residual contrast filling at the level o f the thrombus. 3. Left paraclinoid and supraclinoid ane urysms are unchanged. Narrative 02/11/2021 3:06 PM CDT EXAM: ??INTERPRETATION OF OUTSIDE MR HEAD, INTERPRETATION OF OUTSIDE MR HEAD, INTERPRETATION OF OUTSIDE MR HEAD MR I brain with and without intravenous contrast, MRA head without contrast, and MRA neck with and without intravenous co ntrast on 02/10/2021. COMPARISON: ??MRI brain on 02/03/2021. M RA neck with and without contrast on 02/03/2021. CTA head/neck on 01/30/2021. FINDINGS: ?? Brain MRI: Previously seen areas of diff usion restriction on the MRI from 02/04/2020 have slightly diminished and there are new areas of diffusion restriction on the 02/10/2021 exam, for example involving the bilateral thalami (series 3 image 36), bilateral CLEANING ATTENDANT regio n (left greater than right, image 33), and bilateral cerebellar hemispheres (im age 30-31). Chronic-appearing infarcts in the left occipital lobe are unchanged since 09/19/2019. Chronic infarct in the right inferior cerebellar hemisphere is unchanged since 02/03/2021 but new since 09/19/2019. Right thalamic enhance ment is again noted and probably similar in appearance from the recent MRI dated 02/03/2021 when accounting for differences in modalities. The recently described focal enhancement in the left medial cerebellar hemisphere is present (series 8, image 24) but not as well seen on this exam, likely related to dif ferences in technique. HEAD MRA: Decreased signal in the right vertebral artery at the V3/V4 junction is likely related to the known dissectio n. Flow related signal reconstitutes in the mid right V4 segment prior to joinin g the basilar artery. The left PICA is well seen, however the right PICA is not definitely visualized, unchanged from the prior CTA. No new branch occlusion. 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 Th e 2 mm left supraclinoid ICA aneurysm does not appear significantly changed bu t is better evaluated on the prior CTA. Neck MRA: Filling defect in the right di stal V3/proximal V4 vertebral artery segments, appears similar in extent comp ared with MRI of 02/03/2021, however there appears to be increased narrowing of the vertebral artery lumen with only minimal residual luminal opacification a t the level of the thrombus (compare series 7 images 66-67 on the current exa m with series 15 images 22-18 on 02/03/2021). The great vessels arise from the aortic arch just in configuration. No stenosis at the great vessel origins. Patent orig ins of both vertebral arteries. The carotid arteries are normal in course an d caliber without significant stenosis or evidence of dissection. Procedure Note El Cruz M.D. - 1 EXAM: INTERPRETATION OF OUTSIDE MR HEAD, INTERPRETATION OF OUTSIDE MR HEAD, INTERPRETATION OF OUTSIDE MR HEAD MR I brain with and without intravenous contrast, MRA head without contrast, and MRA neck with and without intravenous co ntrast on 02/10/2021. COMPARISON: MRI brain on 02/03/2021. MRA neck with and without contrast on 02/03/2021. CTA head/neck on 01/30/2021. FINDINGS: Brain MRI: Previously seen areas of diff usion restriction on the MRI from 02/04/2020 have slightly diminished and there are new areas of diffusion restriction on the 02/10/2021 exam, for example involving the bilateral thalami (series 3 image 36), bilateral CLEANING ATTENDANT regio n (left greater than right, image 33), and bilateral cerebellar hemispheres (im age 30-31). Chronic-appearing infarcts in the left occipital lobe are unchanged since 09/19/2019. Chronic infarct in the right inferior cerebellar hemisphere is unchanged since 02/03/2021 but new since 09/19/2019. Right thalamic enhance ment is again noted and probably similar in appearance from the recent MRI dated 02/03/2021 when accounting for differences in modalities. The recently described focal enhancement in the left medial cerebellar hemisphere is present (series 8, image 24) but not as well seen on this exam, likely related to dif ferences in technique. HEAD MRA: Decreased signal in the right vertebral artery at the V3/V4 junction is likely related to the known dissectio n. Flow related signal reconstitutes in the mid right V4 segment prior to joinin g the basilar artery. The left PICA is well seen, however the right PICA is not definitely visualized, unchanged from the prior CTA. No new branch occlusion. 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 Th e 2 mm left supraclinoid ICA aneurysm does not appear significantly changed bu t is better evaluated on the prior CTA. Neck MRA: Filling defect in the right di stal V3/proximal V4 vertebral artery segments, appears similar in extent comp ared with MRI of 02/03/2021, however there appears to be increased narrowing of the vertebral artery lumen with only minimal residual luminal opacification a t the level of the thrombus (compare series 7 images 66-67 on the current exa m with series 15 images 22-18 on 02/03/2021). The great vessels arise from the aortic arch just in configuration. No stenosis at the great vessel origins. Patent orig ins of both vertebral arteries. The carotid arteries are normal in course an d caliber without significant stenosis or evidence of dissection. IMPRESSION: 1. Increasing number of posterior circul ation acute on subacute infarcts since 02/03/2021, as described. 2. Filling defect in the right distal V3 /V4 vertebral artery appear similar in extent, however there appears to be grea ter luminal narrowing with only minimal residual contrast filling at the level o f the thrombus. 3. Left paraclinoid and supraclinoid ane urysms are unchanged. Aleisha NIELSON MRI PROCEDURES Interpretation of Outside MR Head (02/11/2021 1:24 AM CDT) Anatomical Region Laterality Modality Neuroradiology RST LOS, Neuroradiology ARZ LOS, N/A Magnetic Resonance Neuroradiology FLA LOS, Head, Other Specimen (Source) Anatomical Collection Method Collection Time Re ceived Time Location / / Volume Laterality 02/11/2021 1:48 PM CDT Impressions 02/11/2021 3:06 PM CDT 1. Increasing number of posterior circulation acute on subacute infarcts since 02/03/2021, as described. 2. Filling defect in the right distal V3 /V4 vertebral artery appear similar in extent, however there appears to be grea ter luminal narrowing with only minimal residual contrast filling at the level o f the thrombus. 3. Left paraclinoid and supraclinoid ane urysms are unchanged. Narrative 02/11/2021 3:06 PM CDT EXAM: ??INTERPRETATION OF OUTSIDE MR HEAD, INTERPRETATION OF OUTSIDE MR HEAD, INTERPRETATION OF OUTSIDE MR HEAD MR I brain with and without intravenous contrast, MRA head without contrast, and MRA neck with and without intravenous co ntrast on 02/10/2021. COMPARISON: ??MRI brain on 02/03/2021. M RA neck with and without contrast on 02/03/2021. CTA head/neck on 01/30/2021. FINDINGS: ?? Brain MRI: Previously seen areas of diff usion restriction on the MRI from 02/04/2020 have slightly diminished and there are new areas of diffusion restriction on the 02/10/2021 exam, for example involving the bilateral thalami (series 3 image 36), bilateral CLEANING ATTENDANT regio n (left greater than right, image 33), and bilateral cerebellar hemispheres (im age 30-31). Chronic-appearing infarcts in the left occipital lobe are unchanged since 09/19/2019. Chronic infarct in the right inferior cerebellar hemisphere is unchanged since 02/03/2021 but new since 09/19/2019. Right thalamic enhance ment is again noted and probably similar in appearance from the recent MRI dated 02/03/2021 when accounting for differences in modalities. The recently described focal enhancement in the left medial cerebellar hemisphere is present (series 8, image 24) but not as well seen on this exam, likely related to dif ferences in technique. HEAD MRA: Decreased signal in the right vertebral artery at the V3/V4 junction is likely related to the known dissectio n. Flow related signal reconstitutes in the mid right V4 segment prior to joinin g the basilar artery. The left PICA is well seen, however the right PICA is not definitely visualized, unchanged from the prior CTA. No new branch occlusion. 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 Th e 2 mm left supraclinoid ICA aneurysm does not appear significantly changed bu t is better evaluated on the prior CTA. Neck MRA: Filling defect in the right di stal V3/proximal V4 vertebral artery segments, appears similar in extent comp ared with MRI of 02/03/2021, however there appears to be increased narrowing of the vertebral artery lumen with only minimal residual luminal opacification a t the level of the thrombus (compare series 7 images 66-67 on the current exa m with series 15 images 22-18 on 02/03/2021). The great vessels arise from the aortic arch just in configuration. No stenosis at the great vessel origins. Patent orig ins of both vertebral arteries. The carotid arteries are normal in course an d caliber without significant stenosis or evidence of dissection. Procedure Note El Cruz M.D. - 1 EXAM: INTERPRETATION OF OUTSIDE MR HEAD, INTERPRETATION OF OUTSIDE MR HEAD, INTERPRETATION OF OUTSIDE MR HEAD MR I brain with and without intravenous contrast, MRA head without contrast, and MRA neck with and without intravenous co ntrast on 02/10/2021. COMPARISON: MRI brain on 02/03/2021. MRA neck with and without contrast on 02/03/2021. CTA head/neck on 01/30/2021. FINDINGS: Brain MRI: Previously seen areas of diff usion restriction on the MRI from 02/04/2020 have slightly diminished and there are new areas of diffusion restriction on the 02/10/2021 exam, for example involving the bilateral thalami (series 3 image 36), bilateral CLEANING ATTENDANT regio n (left greater than right, image 33), and bilateral cerebellar hemispheres (im age 30-31). Chronic-appearing infarcts in the left occipital lobe are unchanged since 09/19/2019. Chronic infarct in the right inferior cerebellar hemisphere is unchanged since 02/03/2021 but new since 09/19/2019. Right thalamic enhance ment is again noted and probably similar in appearance from the recent MRI dated 02/03/2021 when accounting for differences in modalities. The recently described focal enhancement in the left medial cerebellar hemisphere is present (series 8, image 24) but not as well seen on this exam, likely related to dif ferences in technique. HEAD MRA: Decreased signal in the right vertebral artery at the V3/V4 junction is likely related to the known dissectio n. Flow related signal reconstitutes in the mid right V4 segment prior to joinin g the basilar artery. The left PICA is well seen, however the right PICA is not definitely visualized, unchanged from the prior CTA. No new branch occlusion. 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 Th e 2 mm left supraclinoid ICA aneurysm does not appear significantly changed bu t is better evaluated on the prior CTA. Neck MRA: Filling defect in the right di stal V3/proximal V4 vertebral artery segments, appears similar in extent comp ared with MRI of 02/03/2021, however there appears to be increased narrowing of the vertebral artery lumen with only minimal residual luminal opacification a t the level of the thrombus (compare series 7 images 66-67 on the current exa m with series 15 images 22-18 on 02/03/2021). The great vessels arise from the aortic arch just in configuration. No stenosis at the great vessel origins. Patent orig ins of both vertebral arteries. The carotid arteries are normal in course an d caliber without significant stenosis or evidence of dissection. IMPRESSION: 1. Increasing number of posterior circul ation acute on subacute infarcts since 02/03/2021, as described. 2. Filling defect in the right distal V3 /V4 vertebral artery appear similar in extent, however there appears to be grea ter luminal narrowing with only minimal residual contrast filling at the level o f the thrombus. 3. Left paraclinoid and supraclinoid ane urysms are unchanged. Aleisha Vega M.D. [facility] MRI PROCEDURES documented in this encounter Visit Diagnoses Not on filedocumented in this encounter Additional Health Concerns Assessment Noted Time PHQ-9 Depression Total Score: 16 02/11/2021 12:00 AM C DT documented as of this encounter
--- OUTSIDE RECORDS SUMMARY | 2022-07-06 14:53 | XMS_ITS | Encounter Summary ---
:1965 Author Organization [facility] Address [address] [place] [address] Care Team Providers Name Role Phone Unavailable Primary Care Provider Unavailable Encounter Details Date Type Department Care Team Description 02/03/2021 Orders Only Department of Neurology Leonides Kumar S troke ([facility]) (Primary in [facility] Lilian Dx) 200 [facility] 200 [place] [id number] [phone] Social History Tobacco Use Types Packs/Day Years [...] you attend jainism or Patient refused 2021 holiness services? Do [...] of this encounter Visit Diagnoses Diagnosis Stroke (HCC) - Primary documented in this encounter Additional Health Concerns Assessment Noted Time PHQ-9 Depression Total Score: 23 02/02/2021 11:[address] documented as of this encounter
--- OUTSIDE RECORDS SUMMARY | 2022-07-06 14:53 | XMS_ITS | Encounter Summary ---
:1965 Author Organization [facility] Address [address] [place] [address] Care Team Providers Name Role Phone Unavailable Primary Care Provider Unavailable Reason for Visit Reason Onset Date Comments saul med request 02/03/2021 Encounter Details Date Type Department Care Team Description 02/03/2021 Clinical Communication Department of [facility], trinidad Mccarthy med request Nicotine Dependence, M.S., C.T.T.S., [facility] in [address] [place] [id number] [place], [place] [phone] (Work) [phone] Social History Tobacco Use Types Packs/Day Years [...] you attend scientology or Patient refused 2021 jain services? Do [...] place to sleep or slept in a long-term (including now)? Education Answer Date Recorded What is the highest level of school you have GED or equivale nt 10/02/2019 completed or the highest degree you have received? Sex Assigned at Date Recorded Female 03/01/2019 10:12 AM CDT documented as of this encounter Miscellaneous Notes Telephone Encounter - Pamela Middleton M.S., Sharon., C.T.T.S. - 02/03/2021 10:16 AM CST Please send to [employer] in [facility] 21 mg patches with refills Nicotrol inhaler with refills Nicotine nasal spray with refills [employer] documented in this encounter Plan of Treatment Not on filedocumented as of this encounter Visit Diagnoses Not on filedocumented in this encounter Additional Health Concerns Assessment Noted Time PHQ-9 Depression Total Score: 23 02/02/2021 11:[address] documented as of this encounter
--- OUTSIDE RECORDS SUMMARY | 2022-07-06 14:53 | XMS_ITS | Encounter Summary ---
:1965 Author Organization [facility] Address [address] [place] [address] Care Team Providers Name Role Phone Unavailable Primary Care Provider Unavailable Encounter Details Date Type Department Care Team Description 02/16/2021 Anesthesia Event Department of Radiology Liban Sunshine APRN, LITURGICAL MUSIC DIRECTOR, DNAP [address] [place] [phone] in [facility] Deep Velasquez M.D. [address] [place] [phone] [place] [phone] Anesthesia Record Procedure Summary Procedure Name Responsible Anesthesia Start Anesthesia Stop Anesthesiologist Time Time IR CEREBRAL Liban Sunshine APRN, 02/16/21 0825 02/16/21 1100 INTRACRANIAL ARTERY LITURGICAL MUSIC DIRECTOR, DNAP EMBOLIZATION Events Date Time Event Comment 02/16/2021 0825 An Start Machine/Equipmen t Checked Infection Precautions Foll owed Procedure/Site Verified NPO Sta tus Verified Supine Standard ASA Mon itors Applied 0837 Turnover to Proceduralist 0845 Anesthesia Time Out 0848 Proc Start 1030 Proc Fin 1032 Turnover to ANE Staff 1037 an stop data 1100 An End I completed my h andoff to the receiving staff during [facility] we 1. Identified the patient 2. Ident ified the responsible provider 3. Revi ewed the pertinent medical history 4. Discu ssed the surgical course 5. Reviewed intra-o p anesthesia management and issues during an esthesia 6. Set expectations for post-procedure period 7. Allowed opportun ity for questions and acknowledgement of understanding. Name Total midazolam 1 mg/mL 4 mg fentaNYL PF injection 50 mcg/mL 100 mcg ondansetron PF 4 mg/2 mL injection 4 mg heparin 1,000 units/mL injection 6,000 Units heparin standard 81647 Units/250 mL in 0.45 % Sodium C hloride infusion 1,185.25 Units Lactated Ringers Free Drip 400 mL Agents No agents on file. Blood No blood administrations on file. Lines, Drains, and Airways Type Details Placement Removal Peripheral IV Placement Date: 02/16/21 08 by 02/17/211653 b y 02/16/21; Placement Bettie Jacobson Rayman, T anner B, Time: 819; R.N. R.N. Orientation: Anterior, Distal, Lower, Right; Location: Forearm; Inserted by: CHRISTIAN; Insertion Attempts: 1; Removal Date: 02/17/21; Removal Time: 1653 Percutaneous Access Site 02/16/21; 0851; 02/16/21 0851 by 165 by Temporary Jessie Bardales Rayman, Tanner B , (non-tunneled, C.S.T. R.N. non-implanted); Arterial; Dura prep; Right Femoral; 6 Fr.; 02/17/21; 1653 Percutaneous Access Site 02/16/21; 0918; 02/16/21 0918 by 1653 by Jessie Puentes Rayman, Tanner B , (non-tunneled, C.S.T. R.N. non-implanted); Arterial; Dura prep; Right Radial; 6 Fr.; 02/17/21; 165 documented in this encounter Social History Tobacco [...] you attend spiritism or Patient refused 2021 uatsdin services? Do you belong to any clubs or No 05/17/2022 organizations such as spiritism groups, unions, franatue or athletic groups, or school groups? 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 Case discussed with Dr. Castillo.) Scheduled Providers: Mustapha Castillo M.D.; Liban Sunshine APRN, CRNA, DNAP; He Crooks M.D. Responsible Provider: Liban Sunshine APRN, CRNA, DNAP Anesthesia Type: MAC ASA Status: 3 Anesthesia Type: MAC Last vitals Vitals Value Taken Time BP 112/90 02/16/21 1100 Temp Pulse 62 02/16/21 1100 Resp 16 02/16/21 1100 SpO2 93 % 02/16/21 1100 Vitals shown include unvalidated device data. Please reference Vitals flowsheet for most recent vital signs. Anesthesia Post Evaluation Patient Disposition: general care unit Cardiovascular status: hemodynamics (HR & BP) acceptable Respiratory status: patent airway with spontaneous effort Temperature: normothermic Oxygen requirements: room air Level of consciousness: awake Pain score: pain adequately controlled and/or at baseline Post Op nausea/vomiting: none Hydration status: euvolemic Anesthesia Preprocedure Evaluation - Deep Velasquez M.D. - 02/16/2021 7:13 AM CDT Preprocedure Anesthesia & H&P Assessment Procedure Summary Date/Time: 02/16/21 0800 Scheduled providers: Mustapha Castillo M.D.; Liban Sunshine APRN, CRNA, DNAP; He Crooks M.D. 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 Case discussed with Dr. Castillo. Location: Department of Radiology in [place], [place] Pertinent components of the patient's history including current problem list, medical history, surgical history, family history, social history, medications and allergies were reviewed. Present illnessand pre-op diagnosis were confirmed. The planned surgery / procedure was verified with the patient /legal guardian. 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 (HCC) (+) Dissection Vertebral Artery (HCC) (+) Transient Ischemic Attack MSK/RHEUM (+) Esophageal Motility Disorder (+) Fibromyalgia Other (+) Nicotine Dependence Cigarettes (+) Nicotine Dependence Unspecified (+) Opioid Moderate Or Severe Use Disorder (Dependence) Uncomplicated (HCC) OBJECTIVE PHYSICAL EXAMINATION Airway (HEENT) Mallampati: III TM Distance: >3 FB Neck ROM: Full Cardiovascular Rhythm: Regular Rate: Normal Pulmonary Pulmonary Assessment: Non labored General / Constitutional Constitutional Assessment: Overweight ASSESSMENT / PLAN ANESTHESIA PLAN ASA: 3 Anesthesia Plan: MAC Patient seen and allergies reviewed, anesthesia plan and risks discussed directly with patient /legal guardian or through an hose sprayer. Risks/Benefits/Alternatives of Blood transfusion discussed with patient / legal guardian, including an opportunity to ask questions and/or decline some or all transfusion therapies. The patient / legalguardian consented to the use of all blood products, as deemed medically necessary Approval to Proceed: approved for anesthesia documented in this encounter Plan of Treatment Not on filedocumented as of this encounter Visit Diagnoses Not on filedocumented in this encounter Administered Medications Inactive Administered Medications - up to 3 most recent administrations Medication Order MAR Action Action Date Dose Rate Site fentaNYL injection (SUBLIMAZE) Given 02/16/2021 10:00 AM CDT 25 mcg intravenous, As needed, Starting on Tue02/16/21 at 0841, Anesthesia Intra-op Given 02/16/2021 9:12 AM CDT 25 mcg Given 02/16/2021 8:48 AM CDT 25 mcg heparin (porcine) 1,000 unit/mL Given 02/16/2021 8:48 AM CDT 6,0 00 Units injection As needed, Starting on Tue02/16/21 at 0848, Anesthesia Intra-op heparin (porcine) 100 Units/mL New Bag 02/16/2021 9:49 AM 12.2 Units/kg/hr 10 mL/hr in NaCl 0.45% 250 mL infusion CDT Continuous Infusion: Per Instructions PRN, Starting on Tue02/16/21 at 0949, Anesthesia Intra-op lactated ringers New Bag 02/16/2021 8:26 AM CDT intravenous, Continuous Infusion: Per Instructions PRN, Starting on Tue02/16/21 at 0826, Anesthesia Intra-op midazolam (PF) injection (VERSED) Given 02/16/2021 9:12 AM CDT 1 mg intravenous, As needed, Starting on Tue02/16/21 at 0836, Anesthesia Intra-op Given 02/16/2021 8:48 AM CDT 1 mg Given 02/16/2021 8:36 AM CDT 2 mg ondansetron (PF) injection (ZOFRAN) Given 02/16/2021 8:36 AM CDT 4 mg intravenous, As needed, Starting on Tue02/16/21 at 0836, Anesthesia Intra-op documented in this encounter Additional Health Concerns Assessment Noted Time PHQ-9 Depression Total Score: 16 02/11/2021 12:00 AM C DT documented as of this encounter
--- OUTSIDE RECORDS SUMMARY | 2022-07-06 14:53 | XMS_ITS | Encounter Summary ---
:1965 Author Organization [facility] Address [address] [place] [address] Care Team Providers Name Role Phone Unavailable Primary Care Provider Unavailable Encounter Details Date Type Department Care Team Description 02/11/2021 Ancillary Procedure Department of Radiology [place] in [facility] raúl Quintana 200 [facility] 200 [place] [phone] (Wo rk) Social History Tobacco Use Types [...] you attend anabaptist or Patient refused 2021 religion services? Do you belong to any clubs [...] Diagnosis INTERPRETATION OF RAD - Routine 02/11/2021 1:26 Result s for OUTSIDE MR HEAD (most [...] bilateral thalami (series 3 image 36), bilateral RETAIL DEPARTMENT SUPERVISOR 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 bilateral thalami (series 3 image 36), bilateral RETAIL DEPARTMENT SUPERVISOR 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 bilateral thalami (series 3 image 36), bilateral RETAIL DEPARTMENT SUPERVISOR 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 bilateral thalami (series 3 image 36), bilateral RETAIL DEPARTMENT SUPERVISOR 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 bilateral thalami (series 3 image 36), bilateral RETAIL DEPARTMENT SUPERVISOR 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 bilateral thalami (series 3 image 36), bilateral RETAIL DEPARTMENT SUPERVISOR 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
--- OUTSIDE RECORDS SUMMARY | 2022-07-06 14:53 | XMS_ITS | Encounter Summary ---
:1965 Author Organization [facility] Address [address] [place] [address] Care Team Providers Name Role Phone Unavailable Primary Care Provider Unavailable Encounter Details Date Type Department Care Team Description 02/11/2021 Ancillary Procedure Department of Radiology [place] in [facility] raúl Quintana 200 [facility] 200 [place] [phone] (Wo rk) Social History Tobacco Use Types [...] you attend mormon or Patient refused 2021 jain services? Do [...] Diagnosis INTERPRETATION OF RAD - Routine 02/11/2021 1:25 Result s for OUTSIDE MR HEAD (most [...] bilateral thalami (series 3 image 36), bilateral NOVELTY TWISTER TENDER 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 bilateral thalami (series 3 image 36), bilateral NOVELTY TWISTER TENDER 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 bilateral thalami (series 3 image 36), bilateral NOVELTY TWISTER TENDER 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 bilateral thalami (series 3 image 36), bilateral NOVELTY TWISTER TENDER 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 bilateral thalami (series 3 image 36), bilateral NOVELTY TWISTER TENDER 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 bilateral thalami (series 3 image 36), bilateral NOVELTY TWISTER TENDER 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
--- OUTSIDE RECORDS SUMMARY | 2022-07-06 14:53 | XMS_ITS | Encounter Summary ---
:1965 Author Organization [facility] Address [address] [place] [address] Care Team Providers Name Role Phone Unavailable Primary Care Provider Unavailable Encounter Details Date Type Department Care Team Description 02/05/2021 Orders Only Pharmacy Prior Auth RO Elsewhere, Pcp [phone] Social History Tobacco Use Types Packs/Day Years [...] or relatives? How often do you attend jehovah's witness or Patient refused 2021 shinto services? Do you belong to any clubs or No 05/17/2022 organizations such as jehovah's witness groups, unions, fraternal or athletic groups, or [...] filedocumented in this encounter Additional Health Concerns Infection Onset Date Last Indicated Resolved Time COVID19 Pending 02/10/2021 02/11/2021 02/11/2021 1:09 AM CDT Assessment Noted Time PHQ-9 Depression Total Score: 23 02/02/2021 11:[address] documented as of this encounter
--- OUTSIDE RECORDS SUMMARY | 2022-07-06 14:53 | XMS_ITS | Encounter Summary ---
:1965 Author Organization [facility] Address [address] [place] [id number] Care Team Providers Name Role Phone Unavailable Primary Care Provider Unavailable Reason for Referral Physical Therapy (Routine) - Closed Specialty Diagnoses / Procedures Referred By Contact Refer red To Contact Diagnoses Stroke (HCC) Raulito Rodriguez M.D., M.S. [address] [place] [phone] Referral ID Status Reason Start Date Expiration Visits Visits Date Requested Authorized [id number] Closed Patient 02/12/2021 02/12/2022 99 99 Preference Encounter Details Date Type Department Care Team Description 02/10/2021 - Hospital Encounter [facility] Tatinaa Vinson M.D. [address] [place] [phone] Stroke (HCC) (Primary Dx); [facility] [address] [place] [address] [phone] Deficit Cognitive Communication; [facility], Decline Functi onal Status; [facility], Debility ; Second floor Abnormal Gait Non Orthopedic [address] [place] [phone] Social History Tobacco Use Types Packs/Day Years [...] you attend gnosticist or Patient refused 2021 church services? Do [...] Sign Reading Time Taken Comments Blood Pressure 133/80 02/17/2021 5:20 PM CDT Pulse 80 02/17/2021 5:20 PM CDT Temperature 36.7 ??C (98.1 ??F) 02/17/2021 5:20 PM CDT Respiratory Rate 14 02/17/2021 1:40 PM CDT Oxygen Saturation 95% 02/17/2021 5:20 PM CDT Inhaled Oxygen Concentration - - Weight 82.1 kg (181 lb) 02/11/2021 1:00 AM CDT Height 152.4 cm (5') 02/11/2021 1:00 AM CDT Body Mass Index 35.35 02/11/2021 1:00 AM CDT documented in this encounter Discharge Summaries Aleisha Vega M.D. - 02/17/2021 4:18 PM CDT DISCHARGE SUMMARY BRIEF OVERVIEW Hospital: [facility] Discharge Provider: Robert Diehl M.D. [facility] St[facility] Cerebrovascular Disease No primary care provider on file. 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 * DISCHARGE DISPOSITION Home or Self Care [1] ACTIVE ISSUES REQUIRING FOLLOW UP Discharge Instructions: - Follow-up with outpatient physical therapy - Consider weaning pain medications due to concern for falls - Recommend no driving until outpatient follow up - Follow up with Dr. Diehl in 30 days to discuss repeat imaging Follow up with Dr. Diehl in 30 days OUTPATIENT FOLLOW UP Scheduled Appointments 04/28/2021 1:00 PM Robert Diehl M.D. Neurology For appointment details refer to your Patient Appointment Guide. TEST RESULTS PENDING AT DISCHARGE Pending Labs None DETAILS OF HOSPITAL STAY REASON FOR ADMISSION Stroke (HCC) HOSPITAL COURSE Ms.??Angie Mosquera??is a 55 y.o.??female??with multiple prior strokes, vertebral thrombus possibly 2/2 dissection, T2 dm, hypertension, hyperlipidemia, cervical spinal fusion in 2018, current smoker??who was hospitalized on the cerebrovascular neurology service for workup and management of??new pos terior??distribution??strokes,??likely secondary to vertebral dissection. ?? Her first stroke occurred in March 2019. She was started on warfarin at that time which was discontinued 6 months later due to no MRA evidence of thrombus and no further events. On 12/20/20, she developedgait instability and dizziness. At that time, CT angiogram demonstrated new cerebellar infarcts and recrudescence of the right vertebral artery thrombus. Warfarin was restarted at that time. She presented again on 01/31/21 for vertigo and ataxia and was found to have infarctions in the posterior circulation of differing ages. MRA showed high grade narrowing of the distal V3 segment of the right vertebral artery and mild narrowing of the proximal V4 segment of the right vertebral artery. At that time, warfarin was changed to apixaban due to variable INR with subtherapeutic level at presentation. ?? Symptoms of her most recent stroke had been improving since she was discharged on 02/03 until she woke up the morning of 02/10 with vertigo, nausea, vomiting, and difficulty walking resulting in a fall and hitting her head on the wall.. She also complained of not being able to walk and nausea and 1 episode of vomiting. She tried to walk to the bathroom and fell hitting her head on the wall. She was notable to crawl to a phone for help. A family member came home (after noon based on the OSH records) and called an ambulance who took her to [facility]. ?? In the emergency department at [facility], her [place] stroke score was 0. Head CT unremarkable. MRI showed multiple new acute infarcts in the cerebellum. MRA redemonstrated R vertebral thrombus. DEVON was performed which showed no intracardiac thrombus. 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 An Apixaban Anti-Xa level was drawn and was 16. It was initially thought that it was lower than whatwould be expected if she had been taking it. However, this was drawn at least 36 hours after her last dose, as she did not take it on the morning of her stroke. Her pills were counted and she had 43/60in her bottle. She should have had 14 doses since the apixaban was prescribed and 17 pills were missing. She endorses using a pill box at home, which may account for the 3 additional pills missing. In summary, it seems that she is compliant with her apixaban and may have had a failure of DOAC therapy.Neurosurgery was consulted for angiogram with possible intervention. She underwent angiogram on 02/16with successful vertebral artery embolization. She had some slow oozing from the femoral access sitewith no evidence of hematoma formation. She was placed on a heparin drip after intervention for 24 hours. Plan to remain on aspirin 325 mg without anticoagulation due to fall risk with no clear benefitin the setting of vertebral artery embolization. She has remained neurologically stable. She was evaluated by PT and OT recommended continued therapy in the post acute setting given her history of falls at home however she declined placement. She was discharged on 02/17/21 with her existinghome and referral for outpatient PT. Final NIHSS Score: 1 CONSULTS ORDERED DURING THIS ADMISSION IP CONSULT TO PHYSICAL MEDICINE & REHABILITATION IP CONSULT TO INTERNAL MEDICINE NICOTINE DEPENDENCE IP CONSULT TO CARE MANAGEMENT IP CONSULT TO CARE MANAGEMENT IP CONSULT TO NEUROLOGICAL SURGERY Procedures Performed: angiography with vertebral artery embolization CONDITION AT DISCHARGE stable Discharge instructions were provided to the patient and caregiver(s). documented in this encounter Discharge Instructions Discharge InstructionsLaquita Raines - 02/11/2021 7:24 AM CDT You were discharged from the Neurology Stroke Service. Please Identify this service name if you callwith questions after your hospitalization. Patient InstructionsKaykay Hogan, Ph.D. - 02/11/2021 3:25 PM CDT SPEECH PATHOLOGY DISCHARGE SUMMARY DIAGNOSIS: Non-aphasic cognitive communication disorder (moderate) RECOMMENDATIONS: The patient and communication partners should use the strategies listed below to enhance communication and/or cognition. Cognitive strategies include: (1) Reduce background noise, (2) Reduce distractions, (3) Avoid multitasking, (4) Discuss one topic at a time, (5) Complete one task at a time, (6) Use memory aids such ascalendars and to-do lists, and (7) Try to associate things you must recall with a personal story or memory. Recommend Speech Pathology to evaluate and treat. Frequency and duration to be determined by the evaluating clinician. Discharge recommendations were provided on 02/11/2021 by Kaykay Hogan, Ph.D., [employer]-SHORE WORKING SUPERVISOR Contact Information: [facility], Department of Neurology, . Discharge Instr - Jessie Ambrose P.T., D.P.T. - 02/12/2021 8:58 AM CDT Physical Therapy Discharge Summary MOBILITY RESTRICTIONS/PRECAUTIONS: Fall risk, impaired cognition, vertigo/dizziness, gait instability, inability to focus on close up items, recent left shoulder reversal and replacement (ongoing 5# restriction for shoulder and cervicalfusion), history of cervical fusion, knee replacements, spinal cord stimulator. EQUIPMENT RECOMMENDED: issued a front wheeled walker for home. CURRENT FUNCTIONAL STATUS: -supine to sit with modified independence -sit to/from stand with front wheeled walker and stand by assistance for safety. Patient at times has tried to stand without use of walker and puts herself at risk of falling. -ambulated 360 feet with front wheeled walker and supervision. Patient endorses fatigue and weaknessbut continues to push herself, cues to sit and rest as needed and to use the walker safely. -impaired left shoulder motion due to recent surgery and has not initiated outpatient physical therapy. -vocalizes insight at times & safety awareness at times but functionally exhibits poor insight and safety awareness. RECOMMENDATIONS: -Recommend physical therapy evaluate and treat. Frequency and duration to be determined by the evaluating therapist. Left shoulder range of motion, balance, functional mobility. -Patient unable to get home PT as her home health agency does not offer PT. Patient wants OP therapy and states her son is able to drive her. -Recommend 24/7 supervision and assistance due to impaired mobility and cognition -Recommend that patient not drive at this time due to current dizziness/vertigo, impaired vision, taking narcotic medication, cognition. Discharge information provided on 02/13/2021 by Irene Esteban P.T. Contact information: [facility], [address], Updated 02/17/2021 by Jessie Candelario P.T., Juice.P.T. AttachmentsThe following attachments cannot be sent through Care Everywhere. Acetaminophen (By mouth) (Malaysian)documented in this encounter Medications at Time of [...] 150 mg 24 hr tablet every morning. cetirizine (ZyrTEC) 10 Take 10 mg by [...] 6 (six) hours as needed for dizziness. ondansetron ODT Take 1 tablet by 0 [...] 01/19/202111/2021 mcg/actuation inhaler (two) times a day. nicotine (NICOTROL NS) 1-2 sprays every 1-2 3 Bottle 3 07/202101/01/2022 10 mg/mL nasal spray hrs. as needed for cravings oxyCODONE (ROXICODONE) Take 10 mg by mouth every 4 (four) hours as needed for pain. Max 4 tablets/day 0 08/23/2020 01/01/20 22 10 mg IR tablet Takes daily UNABLE TO FIND Take 1 each by mouth 0 03/11/2021 as needed. Med Name: Medical Marijuana Capsule documented as of this encounter Progress Notes Suhail Benjamin M.D., Ph.D. - 02/17/2021 5:54 PM CDT I reviewed the patient's CTA of the head and neck. This demonstrates filling of the proximal right vertebral artery past the level of the 2 Amplatzer plug devices placed, no clear filling of the vertebral artery past the coils placed just proximal to the dissection site, and some filling of the intradural right vertebral artery distal to the site of dissection. Overall, I interpret this as occlusion of the vertebral artery just proximal to the dissection, but not in the proximal cervical segment, with retrograde filling of the intradural vertebral artery. Given these findings I would not recommend changing her anti- platelet or anticoagulation regimen. I believe that by restarting Coumadin or apixaban, this might lead to persistent flow through the right vertebral artery and may somewhat counterintuitively result in a higher risk of further embolic events. I will follow up with the patient in clinic in 2 weeks time with a repeat CTA of the head and neck; hopefully by that time the right vertebral artery is fully occluded. Jessie Candelario PAna, D.P.T. - 02/17/2021 4:55 PM CDT Physical Therapy Acute Hospital Inpatient Treatment SUBJECTIVE Patient's Name: Angie Ashley Demetri Reason for Referral: PT evaluate and treat- Brain consult. Referring provider: Aleisha Vega MD Medical Diagnosis: 1. Stroke (HCC) 2. Deficit Cognitive Communication 3. Decline Functional Status 4. Debility 5. Abnormal Gait Non Orthopedic History of Present Illness: # Acute onset vertigo and found to have progressive multifocal areas of posterior circulation ischemia impacting bi-cerebellar hemispheres, right occipital lobe, and bi-thalamic areas. 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 She wants to do OP PT and says her son can drive her there. Patient Comments: Patient presented sitting in bedside chair this PM. Patient alert, willing to participat. Was somewhat vague when asked about pain, however states her headache is better today. Willing to participate. Note patient status post uncomplicated right vertebral artery embolization yesterday. Precautions Other Precautions: fall, impaired cognition, vertigo, long standing 5#lifting restriction cervical fusion & left arm (left shoulder redo, reverse [facility] : [facility] Pt thinks before [place] but notes state 2 months ago), history of chronic pain. Fall Risk (65 and older) Fall in the last 12 months: Yes Did you have an injury with the fall?: Yes Are you fearful of falling?: No Fall Risk Comments: Patient moves quickly and somewhat impulsively. OBJECTIVE Pain: patient reports headache was better, reported she has chronic pain but did not specify. Vitals: HR: 73 bpm BP: 120/68 SpO2: 94% Sit to Stand Transfers # of Assistants: 1 Transfer Surface: Chair Transfer Equipment: Front wheeled walker Level of Assistance: Supervision/set-up Assessment/Delivery: Assessed Comments: Patient moves somewhat quickly and impulsively, however no obvious loss of balance noted. Stand to Sit Transfers # of Assistants: 1 Transfer Surface: Chair Transfer Equipment: Front wheeled walker Level of Assistance: Supervision/set-up Assessment/Delivery: Facilitated, Modified Comments: supervision for safety Gait Assessment/Training Distance (m): 110 m Surface: Even, Smooth/hard Device: Gait belt, Front-wheeled walker # of Assistants: 1 Level of Assistance: Supervision/Set-up Stability: minimal instability Assessment of Gait: Patient moves quickly, is somewhat impulsive, did bump walker into objects on the right on 3 occasions, in part this appeared due to not attending to her surroundings. Cueing Provided: Verbal Training/Intervention: Continued with increased walking distances with front wheeled walker Response: advised ongoing use of front wheeled walker, note that new home-going walker was in her room. Standing Exercise - Side Addressed: Bilateral Standing Exercise: Marching, Hip abduction, Toe raises, Shallow squats Exercise Mode: With bilateral upper extremity support Standing Exercise Comments: Performed standing lower extremity exercises using raised side-rail for balance support. Patient requiring verbal, visual, and tactile cues to perform properly. Patient/Family Training: Lower extremity exercises, functional mobility At the end of today's therapy session patient was left seated in bedside chair with the chair alarm on with an appropriate call light within reach. Patient's needs and questions addressed during today's session. Contact monitoring: PPE used during therapy: Therapist was wearing the following PPE throughout entire session: surgicalmask, eye protection and gloves Patient was wearing a mask during therapy session: donned mask to mobilize Additional Staff Present During Session: none Assessment Patient presented seated in chair. Willing to participate. Patient today continues to demonstrate impulsivity with her mobility, mobilizing with supervision using her home-going front wheeled walker. Patient is very tangential in her thought process, and is easily distracted. Patient mobilized increased distance today with front wheeled walker and supervision, no obvious loss of balance. Patient would benefit from ongoing supervision upon discharge, however plans to return home. Was provided with written home exercise sheets for standing lower extremity exercises, including mini-squats, heel raises, hip abduction, and marches. Patient reports she plans to pursue outpatient PT. Plan to continue while here with therapeutic functional activity, therapeutic exercise, neuromuscular reeducation, patient and caregiver education, equipment recs as appropriate. Barriers to a safe discharge home: would benefit from ongoing supervision. Barriers to Discharge Home: Current functional status, Safety concerns Barriers to Discharge Comments: Mild balance instability with mobility Comorbid Conditions: Cerebrovascular accident, Mental health disorder Personal Factors: Living situation, Needs assistive device, Safety awareness, Other (Comment)(memory) Discharge Therapy Needs - PT: Ongoing skilled outpatient therapy recommended(recommended snf - pt refused. recommended home PT - pt can't get with current home health agency but she refuses to change agencies to get PT. only option left is OP PT.) Level of Care Recommended - PT: Physical assistance needed, Assistance with transportation, Cognitive assistance needed, 24 hour supervision Equipment Recommended - PT: Front-wheeled walker Equipment Vendor - PT: ordered through [employer] Functional Goals and Timeframes: PT Goal #1: Patient will be independent with transfers using least restrictive device to facilitate a safe dc. PT Goal #1 Date: 02/19/21 PT Goal #1 Status: Progressing PT Goal #2: Patient will ambulate with least restrictive device 75 meters independently to faciliatea safe dc home. PT Goal #2 Date: 02/19/21 PT Goal #2 Status: Progressing Progress: Progressing toward goals Plan Patient agrees with the plan of care and goals. Treatment Plan: PT Frequency: 5 times per week PT Amount: 1 visit per day PT Inpatient Duration : Until goals are met or hospital discharge Plan: Continue with current plan PT Plan Comments: < 6 month old left reversed total shoulder: range of motion as tolerated per pt, continue to mobilize, ongoing safety awareness. Treatment interventions may include: Treatment/Interventions: Therapeutic exercise, Therapeutic functional activity, Neuromuscular re-education, Gait training Time Spent with Patient Therapeutic Activity (min): 22 min Therapeutic Exercise (min): 12 min Total Timed Units (min): 34 min Total Treatment Time (min): 34 min Jessie Candelario P.T., D.P.T. Edwin Vega Jr., MDIV, [facility] - 02/17/2021 3:37 PM CDT Encounter: Follow-Up Visit Situation: Ms. Mosquera shared her medical narrative and described a procedure to address an artery that was prone to clogging. She expressed hope that this will help me stay away from the hospital. Family: The patient stated that she hopes to be discharged today and return home. Her domicile is a place of rest and normalcy for the patient. Deanna Tradition: No spiritual needs were expressed and she amicably thanked this medical billing specialist for the follow-up visit. Plan: Discharge pending; no further spiritual needs anticipated. Chaplains can be contacted by paging [phone] ([place]). Robert Diehl M.D. - 02/17/2021 2:17 PM CDT I have reviewed the history, examination, and plan of care of the resident physician's note as documented on the electronic neurologic examination and history. I have personally interviewed and examined the patient. I agree with the documentation, other than where indicated in my note. HD7 The patient is status post endovascular sacrifie of the right vertebral artery nonhealing dissectionwithout complication, appreciate neurosurgical services. She remain on heparin drip overnight without further complication or deterioration. This morning on examination she is baseline pleasant alert fluent mild right- sided visual field lossas before mild right-sided ataxia otherwise no focal deficit. The CT angiogram demonstrates scattered artifact at the level of the embolization however the intradural right vertebral artery seems to be filling most likely retrograde. ASSESSMENT/PLAN #1 Recurrent embolic stroke likely secondary to chronic nonhealing right vertebral artery dissectionnow status post uncomplicated right vertebral artery embolization Continue single anti-platelet agent. Will discuss pros and cons of empiric anticoagulation with patient. Follow-up outpatient 30 day visit At that time can discuss whether any additional vessel imaging may be necessary on a screening basis. Otherwise she is neurologically intact will likely discharge home with family she has services locally. 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 02/17/21 2:17 PM CDT Catalina Panchal R.N. - 02/17/2021 12:45 PM CDT Patient discussed at Stroke Multidisciplinary Rounds. Plan for the day: PT/OT, PMR, Case Management??Following, CT Angio, Hep Drip Plan for the Stay: Stroke w/u Discharge barriers: Inpatient Needs Recommended discharge disposition:??Home with HHC Boris Saenz M.A., [facility]-SHORE WORKING SUPERVISOR - 02/17/2021 10:21 AM CDT Speech Language Pathology Communication/Cognitive Treatment- Acute Care Session Type: Treatment Length of session: 12 minutes SUBJECTIVE Patient presented upright in chair and was alert. General Arousal/Alertness: Appropriate responses to stimuli Behavior: Alert, Cooperative Pain No overt pain reported. OBJECTIVE Objective Session Data Motor Speech: Voice: Impaired Pitch (low/high): (-1) Mild Hoarseness: (1) Mild Respiration: Within Normal Limits (WNL)(Patient tended to use frequent breath groups during speech) Resonance (PROCUREMENT MANAGER Function): Within Normal Limits (WNL) Articulation: Impaired Imprecise/Disorted Consonants: (1) Mild Intelligibility: Intelligible Cognition: Overall Cognitive Status: Impaired Arousal/Alertness: Delayed responses to stimuli Memory: Impaired Short-term Memory: Moderate Working Memory: Mild Problem Solving: Impaired Executive Functioning: Impaired Cognition Comments: (Proverbs: Impaired(Patient struggled to provide the meanings of proverbs)) Assessment Ms. Mosquera presented upright in chair and was alert. Patient demonstrated memory deficits, having difficulty answering recent recall questions accurately. Patient also demonstrated slightly worsened slurred speech (Primary team already notified) compared to previous speech therapy session, however, was intelligible. She was educated on cognitive strategies and demonstrated understanding. Session wasended early as patient had to go to CT scan. ?? Ms. Mosquera presents with a moderate cognitive-communication impairment characterized by difficulties with delayed memory, working memory, delayed processing, and executive dysfunction. She benefits from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 neurological Exam is unchanged she is alert pleasant oriented has very good questions with respect to the pros and cons of the angiogram she fixates tracks in both visual jhaveri although there is reduced vision offto the right consistent with the right-sided minus hemianopsia. There is asterixis but otherwise no reshma motor deficit mild right-sided ataxia INR 1.1 today. ASSESSMENT/PLAN Appreciate neurosurgical review of this right vertebral artery lesion they will plan to performed a catheter based angiogram. Will discontinue Lovenox bridging and low patient with Plavix tonight. Continue aspirin. Recall the patient also has unruptured cerebral aneurysm which will need to have outpatient follow-up likely locally. 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 02/15/21 2:43 PM CDT Ayaz Nettles, Christiano.Ph. - 02/15/2021 8:58 AM CDT Warfarin Dosing Progress Note: More information: Angie Mosquera is a 55 y.o. female who was admitted to the hospital on 02/10/2021. Hospital Pharmacy has been consulted for inpatient warfarin management and monitoring. Warfarin Indication: Stroke/TIA Other indication (comments): No data recorded Type of therapy: New Prior average daily dose: No data recorded Comorbidities: No known risk Are any of these comorbidities new with admission? No data recorded Are there any new medication interactions with admission? No data recorded Target INR: Non-Std (Goal INR 3) Day of therapy: 2 Drug interactions include the following: Strong Potentiator (From admission, onward) None Moderate Potentiators (From admission, onward) Start Dose/Rate Route Frequency Ordered Stop 02/10/21 230 acetaminophen tablet 650 mg (TYLENOL) 650 mg oral Every 4 hours PRN 02/10/21 23002/10/21 2305 acetaminophen tablet 650 mg (TYLENOL) 650 mg gastric tube Every 4 hours PRN 02/10/21 23002/10/21 2305 acetaminophen suppository 650 mg (TYLENOL) 650 mg rectal Every 4 hours PRN 02/10/21 2306 Potentiating (From admission, onward) Start Dose/Rate Route Frequency Ordered Stop 02/10/21 2305 acetaminophen tablet 650 mg (TYLENOL) 650 mg oral Every 4 hours PRN 02/10/21 2306 02/10/21 2305 acetaminophen tablet 650 mg (TYLENOL) 650 mg gastric tube Every 4 hours PRN 02/10/21 2306 02/10/21 2305 acetaminophen suppository 650 mg (TYLENOL) 650 mg rectal Every 4 hours PRN 02/10/21 2306 Enzyme Inducers (From admission, onward) None Binders (From admission, onward) None Vitamin K-Containing Medications (168h ago, onward) None Antiplatelets & Anticoagulants (168h ago, onward) Start Dose/Rate Route Frequency Ordered Stop 02/15/21 1700 warfarin tablet 4 mg (COUMADIN) 4 mg oral Once 02/15/21 0858 02/15/21 2345 02/14/21 2100 enoxaparin injection 80 mg (LOVENOX) 1 mg/kg ?? 82.1 kg (Dosing Weight) subcutaneous 2 times daily 02/14/21 1302 02/14/21 1700 warfarin tablet 4 mg (COUMADIN) 4 mg oral Once 02/14/21 1309 02/14/21 1609 02/14/21 1115 warfarin management (COUMADIN) oral Daily 02/14/21 1113 02/11/21 0900 aspirin tablet 325 mg 325 mg oral Daily 02/11/21 0841 INR reversal agents were not given. Warfarin Reversal Agent Administrations (last 168 hours) Vitamin K and K-Centra None FFP Administrations During Encounter (Filter): EAP GENERAL TRANSFUSE FFP Medications Shown None Warfarin Administrations (last 168 hours) Date/Time Action Medication Dose 02/14/21 1609 Given warfarin tablet 4 mg (COUMADIN) 4 mg INR (no units) Date Value Status 02/15/2021 1.1 Final 02/14/2021 1.4 Final 02/13/2021 1.3 Final 02/11/2021 1.0 Final A/P: Warfarin order of 4 mg has been placed for today and the pharmacist team will continue to follow patient's clinical progress daily until discharge from the hospital. Christiano Rebolledo.Ph. Contact [phone] with any questions about this note. Aleisha Vega M.D. - 02/15/2021 8:15 AM CDT NEUROLOGY STROKE SERVICE PROGRESS NOTE SUBJECTIVE Ms. Mosquera became upset and wanted to leave yesterday. She was allowed to calm down and ultimately decided to stay. We discussed the importance of transition to warfarin and education about enoxaparinbridging. She understands the need for continued treatment and physical therapy. She is happy to hear that neurosurgery will be consulted today to evaluate the utility of angiography. I have reviewed the current medication list. OBJECTIVE Temperature: [36.4 ??C-36.6 ??C] 36.4 ??C Resp Rate: [16-18] 18 Blood Pressure: (107-136)/(70-76) 109/71 SpO2: [94 %-96 %] 94 % Pulse Rate: [73-90] 73 Physical Exam: Constitutional: sleeping in bed Lungs: Breathing comfortably on room air. Clear to auscultation bilaterally. Cardiac: regular rate and rhythm Abdomen: Soft, non-tender, non-distended. Skin: Tattoos on skin throughout, no rashes seen Neurologic: Mental status: alert and oriented to time, place and person Speech: Clear. Language: No evidence of aphasia. Cranial nerves: PERRL, EOMI with horizontal nystagmus, apparent R visual field cut although difficult to assess, facial movements full and symmetric, hearing intact to voice Motor: Upper extremities antigravity 10 s and lowers 5 s without drift. Tone is normal in bilateral upper and lower extremities. Sensory: Sensation is intact to light touch of distal extremities bilaterally. Reflexes: biceps (0,0), brachioradialis (0,0), Achilles (0,0). Plantar flexor responses are flexor-flexor. Coordination: difficulty with FNF on right; mild difficulty with FNF on left. Normal heel montes bilaterally. Diagnostics: I have reviewed the labs and diagnostics from admission. ASSESSMENT / PLAN Ms. Angie Mosquera is a 55 y.o. female with stroke risk factors including multiple prior strokes,vertebral thrombus possibly 2/2 dissection, insulin resistance, hypertension, hyperlipidemia, cervical spinal fusion in 2018, who is currently smoking who is hospitalized on the cerebrovascular neurology service for workup and management of new posterior distribution strokes, likely secondary to vertebral dissection, but potentially more proximal embolic source. ?? Per her report, she has been compliant with her anticoagulation, however the outside ED did get history that she only started apixiban in the last couple of days. However, she had an appropriate numberof pills missing from her pill bottle and has repeatedly denied missing doses. Considering that warfarin has worked well for her in the past and it seems that she has failed apixaban therapy, we will begin bridging her to warfarin with goal INR of 3. DEVON was negative for intracardiac thrombus but did show small noxjw-xo-uuvn shunt through PFO accentuated with release of Valsalva. Plan today: - Continue warfarin bridging with enoxaparin - Continue PT/OT - Neurosurgery consult to consider digital subtracted angiogram to determine the utility of further intervention ?? #1 Acute Ischemic Stroke, posterior circulation likely embolic source secondary to vertebral dissection ?? Workup: Neuroimaging - NCHCT (at OSH): revealed no acute intracranial abnormality - MRI Brain (at OSH): multiple late acute infarcts in the cerebellum and occipital lobes, subacute infarct to the left occipital lobe and subacute bilateral thalamic infarcts, which were noted on - Baseline ECG: normal sinus rhythm, unchanged from prior Stroke risk factor work up (labs from last admission, will not repeat): - HbA1c (01/31): 6.1% - Fasting lipid panel (02/01): total cholesterol 157, HDL 88, LDL 48, TGs 107 - TSH (01/31): 0.3 - Echocardiogram (02/11)- negative for intracardiac thrombus, PFO redemonstrated with small [id number]-[id number]-mvnm shunt accentuated on release of Valsalva - Thrombophilia workup in 2019 significant for mildly decreased protein S (in the setting of active clotting); negative for protein C deficiency, prothrombin [id number] mutation, antiphospholipid antibodysyndrome, antithrombin 3 deficiency ?? Management: - Neuro Checks per Unit protocol => stat noncontrast head CT for change in exam? - Cardiac Monitoring for 24 hours completed, negative for significant arrhythmia - Blood Pressure: - Antihypertensives: hold home furosemide for soft blood pressures - Blood Glucose - BG Goal: 140-180 - Moderate correction scale insulin if indicated - Antithrombotics: initiate enoxaparin with bridging to warfarin, continue ASA 325 mg - Statin: Atorvastatin 80 mg daily (increased form 40) - Bedside swallow ordered- passed - Brain Rehab Team consulted, appreciate recs - SWS consulted for assistance with d/c planning, appreciate recs - Outpatient follow up in 3 month with repeat MRA to evaluate vertebral thrombus, may consider subsequent angiography if thrombus resolves ?? 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 status post C2-T3 Spine Fusion # Gastroesophageal reflux disease - Nicotine Patch - Continue home apixiban, lamictal 200 mg bid, protonix 40 daily, lyrica 300/500, seroquel 50, zonisamide 300 bid - Continue diazepam to 5 mg PRN, as she takes at home - Hold home furosemide for soft blood pressures - Acetaminophen 650 mg [id number] PRN Current activity/mobility: PAMP Level 2 (chairbound, staff moves patient to chair TID) Diet: adult regular Tubes/lines: PIV VTE prophylaxis: therapeutic anticoagulation Code status: Full Code Disposition: Home with Home Health with expected discharge date 02/14/2021 Stable to discharge criteria (not met): Tests/procedures/consults and Acute care monitoring needs Plan discussed with [facility] Neurology Stroke and Cerebrovascular Disease Senior Front End Developer, Dr. Vinson. Please page the [facility] Neurology Stroke and Cerebrovascular Disease service pager at [phone] with any questions. Ai Vega MD Internal Medicine, PGY1 Aleisha Vega M.D. - 02/14/2021 3:50 PM CDT Ms. Mosquera became upset because she felt that we were withholding her opioid medications and that she was concerned that we would make her go to a halfway facility at discharge. She decided that she wanted to leave against medical advice and pulled out her IV and started getting dressed. I went to talk to her and she was not interested in having a discussion about it at the time. She called her son who refused to pick her up. A YEYO nurse spoke with her and she remained very agitated. She requested to speak with Dr. Diehl who helped calm her down and she ultimately decided to stay. She has the capacity to make her own decisions and is therefore able to leave if she so chooses. However, th at would be against out advice. We recommend that she remain in the hospital for warfarin bridging and neurosurgical evaluation. She also needs a safe discharge plan prior to leaving. She has agreed tostay for now. Ayaz Nettles, Christiano.Ph. - 02/14/2021 1:10 PM CDT Warfarin Dosing Progress Note: More information: Angie Mosquera is a 55 y.o. female who was admitted to the hospital on 02/10/2021. Hospital Pharmacy has been consulted for inpatient warfarin management and monitoring. Warfarin Indication: Stroke/TIA Other indication (comments): No data recorded Type of therapy: New Prior average daily dose: No data recorded Comorbidities: No data recorded Are any of these comorbidities new with admission? No data recorded Are there any new medication interactions with admission? No data recorded Target INR: Non-Std (Goal INR 3) Day of therapy: 1 Drug interactions include the following: Strong Potentiator (From admission, onward) None Moderate Potentiators (From admission, onward) Start Dose/Rate Route Frequency Ordered Stop 02/10/21 230 acetaminophen tablet 650 mg (TYLENOL) 650 mg oral Every 4 hours PRN 02/10/21 23002/10/21 230 acetaminophen tablet 650 mg (TYLENOL) 650 mg gastric tube Every 4 hours PRN 02/10/21 23002/10/21 230 acetaminophen suppository 650 mg (TYLENOL) 650 mg rectal Every 4 hours PRN 02/10/21 230 Potentiating (From admission, onward) Start Dose/Rate Route Frequency Ordered Stop 02/10/21 230 acetaminophen tablet 650 mg (TYLENOL) 650 mg oral Every 4 hours PRN 02/10/21 23002/10/21 2305 acetaminophen tablet 650 mg (TYLENOL) 650 mg gastric tube Every 4 hours PRN 02/10/21 2306 02/10/21 2305 acetaminophen suppository 650 mg (TYLENOL) 650 mg rectal Every 4 hours PRN 02/10/21 2306 Enzyme Inducers (From admission, onward) None Binders (From admission, onward) None Vitamin K-Containing Medications (168h ago, onward) None Antiplatelets & Anticoagulants (168h ago, onward) Start Dose/Rate Route Frequency Ordered Stop 02/14/21 2100 enoxaparin injection 80 mg (LOVENOX) 1 mg/kg ?? 82.1 kg (Dosing Weight) subcutaneous 2 times daily 02/14/21 1302 02/14/21 1700 warfarin tablet 4 mg (COUMADIN) 4 mg oral Once 02/14/21 1309 02/14/21 2345 02/14/21 1115 warfarin management (COUMADIN) oral Daily 02/14/21 1113 02/11/21 0900 aspirin tablet 325 mg 325 mg oral Daily 02/11/21 0841 INR reversal agents were not given. Warfarin Reversal Agent Administrations (last 168 hours) Vitamin K and K-Centra None FFP Administrations During Encounter (Filter): EAP GENERAL TRANSFUSE FFP Medications Shown None Warfarin Administrations (last 168 hours) None INR (no units) Date Value Status 02/14/2021 1.4 Final 02/13/2021 1.3 Final 02/11/2021 1.0 Final A/P: 55F w/new posterior??distribution??strokes,??likely secondary to vertebral dissection while on apixaban. DC apixaban; day 1 enoxparin 80 mg bid. INR 1.4. Protocol wanted 3 mg but chose 4 mg given high INR goal. Christiano Rebolledo.Ph. Contact [phone] with any questions about this note. Robert Diehl M.D. - 02/14/2021 12:45 PM CDT I have reviewed the history, examination, and plan of care of the resident physician's note as documented on the electronic neurologic examination and history. I have personally interviewed and examined the patient. I agree with the documentation, other than where indicated in my note. HD4 Complex case patient initially had a right vertebral artery C1 level thrombus in March of 2019. She was treated with anticoagulation in the form of warfarin and did well. In June 2019 noninvasive angiogram demonstrated some retraction but still presence of the right vertebral thrombus. Over the courseof time on follow-up in this has remained persistent and in September of 2019 the ovary demonstrated nonocclusive luminal thrombus but similar in appearance we went off anticoagulation due to several months without any recanalization. She had been stable until December of 2020 when she was seen local emergency department after developing posterior circulation type symptomatology. A noncontrast head CT at that time demonstrated the interval development of a chronic right cerebellar hemispheric infarct. CT angiogram of the head and neck at that time January 2021 demonstrated the partial recanalization of the right vertebral artery C1 lesion now being termed a dissection in the radiology reports. She was placed back on warfarin. Review of the INRs available in the Care everywhere application did not demonstrate any time therapeutic window. Recall that she had a spinal cord stimulator placed which obviated the ability to obtain a brain MRIfor a long period of these evaluations eventually she had a brain MRI completed January of 2021 that demonstrate in addition to the chronic right cerebellar interval infarct areas of new foci all in the posterior circulation. Due to this finding and the subtherapeutic INR is she was placed on apixaban and dismissed January 31, 2021. Unfortunately she had been readmitted shortly thereafter February 10, 2021 with additional areas of infarct mainly in the posterior circulation and this time involving the left occipital lobe. Apixaban level at 36 hours following last dose was still elevated suggesting the possi bility of adherence to this therapy. Noninvasive vascular image of the right vertebral C1 lesion again shows filling defects not substantially changed from prior. ASSESSMENT/PLAN #1 Recurrent cerebral ischemic infarction secondary to a vascular abnormality of the right vertebralartery at C1 level with recurrent thrombosis I suspect that the recurrent events have all originated from this vessel due to the stroke topography being restricted areas of the posterior circulation. She did well on warfarin in 2018 she has now had a stroke ostensibly through therapeutic direct oral anticoagulant therapy and the prior admission stroke was subtherapeutic on her warfarin. I suspect she would benefit from warfarin with close observation of her INR in addition to a single anti-platelet agent. The luminal irregularity might be further defined by a more invasive angiogram, given that this is now the 3rd episode I think it would be reasonable to reach out to our surgical colleagues to request a digital subtracted angiogram to take close look at what the etiology of this vessel irregularity may be whether it is a dissection or some other finding. Please consult vascular Neurosurgery for question of a digital subtracted angiogram to take a look at this area to determine whether any additional management might be considered. Discussed importance of smoking cessation. Follow-up noninvasive vascular image. She will likely dismiss Tuesday into the care of family and home health. #1 Cerebral 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 (HCC) #2 Chronic Pain Syndrome #3 Fibromyalgia #4 Gastric Bypass Status Post #5 Nicotine Dependence Cigarettes #6 Thrombosis Arterial (HCC) #7 Aneurysm Cerebral Unruptured (HCC) #8 Patent Foramen Ovale (HCC) #9 Stroke Cerebrovascular Accident Personal History Time spent 35 minutes Robert Diehl M.D. 02/14/21 12:45 PM CDT Aleisha Vega M.D. - 02/14/2021 11:19 AM CDT NEUROLOGY STROKE SERVICE PROGRESS NOTE SUBJECTIVE Overnight she became confused. She was evaluated by the night team who noted that she was slurring her words and behaving inappropriately. No worsening of neurologic deficits. Her change in mental status was thought to be secondary to intoxication from benzodiazepines and opioids. When I saw her this morning, she noted that she does not take diazepam at home as it is prescribed and only takes half a tablet as needed. She has been taking diazepam 10 mg BID and had an additional dose yesterday prior to MRI. Her oxycodone was reduced to 5 mg this morning due to concerns of intoxication. Additionally, last night her apixaban tablets were counted and an appropriate number of pills were missing. She continues to deny missing any doses of her medications other than on the morning and evening of the stroke. The apixaban anti-Xa level was drawn 36 hours after her last dose. She reports pain in her shoulder, which is chronic. She is very concerned about getting a reduced dose of her oxycodone and requests that we increase it back to her home dose. She has no other complaints at this time. I have reviewed the current medication list. OBJECTIVE Temperature: [36.2 ??C-36.5 ??C] 36.2 ??C Resp Rate: [15-17] 17 Blood Pressure: (88-147)/(55-86) 147/75 SpO2: [93 %-97 %] 96 % Pulse Rate: [67-82] 67 Physical Exam: Constitutional: sleeping in bed Lungs: Breathing comfortably on room air. Clear to auscultation bilaterally. Cardiac: regular rate and rhythm Abdomen: Soft, non-tender, non-distended. Skin: Tattoos on skin throughout, no rashes seen Neurologic: Mental status: sleeping but easily arousable to physical stimuli, drowsy, oriented to time, place and person Speech: Clear. Language: No evidence of aphasia. Cranial nerves: PERRL, EOMI with horizontal nystagmus, apparent R visual field cut although difficult to assess, facial movements full and symmetric, hearing intact to voice Motor: Upper extremities antigravity 10 s and lowers 5 s without drift. Tone is normal in bilateral upper and lower extremities. Sensory: Sensation is intact to light touch of distal extremities bilaterally. Reflexes: biceps (0,0), brachioradialis (0,0), Achilles (0,0). Plantar flexor responses are flexor-flexor. Coordination: difficulty with FNF on right; mild difficulty with FNF on left. Normal heel montes bilaterally. Diagnostics: I have reviewed the labs and diagnostics from admission. ASSESSMENT / PLAN Ms. Angie Mosquera is a 55 y.o. female with stroke risk factors including multiple prior strokes,vertebral thrombus possibly 2/2 dissection, insulin resistance, hypertension, hyperlipidemia, cervical spinal fusion in 2018, who is currently smoking who is hospitalized on the cerebrovascular neurology service for workup and management of new posterior distribution strokes, likely secondary to vertebral dissection, but potentially more proximal embolic source. ?? Per her report, she has been compliant with her anticoagulation, however the outside ED did get history that she only started apixiban in the last couple of days. However, she had an appropriate numberof pills missing from her pill bottle and has repeatedly denied missing doses. Considering that warfarin has worked well for her in the past and it seems that she has failed apixaban therapy, we will begin bridging her to warfarin with goal INR of 3. DEVON was negative for intracardiac thrombus but did show small ozeej-fi-xvyo shunt through PFO accentuated with release of Valsalva. Plan today: - Initiate warfarin bridging with enoxaparin - Continue PT/OT ?? #1 Acute Ischemic Stroke, posterior circulation likely embolic source secondary to vertebral dissection ?? Workup: Neuroimaging - NCHCT (at OSH): revealed no acute intracranial abnormality - MRI Brain (at OSH): multiple late acute infarcts in the cerebellum and occipital lobes, subacute infarct to the left occipital lobe and subacute bilateral thalamic infarcts, which were noted on - Baseline ECG: normal sinus rhythm, unchanged from prior Stroke risk factor work up (labs from last admission, will not repeat): - HbA1c (01/31): 6.1% - Fasting lipid panel (02/01): total cholesterol 157, HDL 88, LDL 48, TGs 107 - TSH (01/31): 0.3 - Echocardiogram (02/11)- negative for intracardiac thrombus, PFO redemonstrated with small [id number] shunt accentuated on release of Valsalva - Thrombophilia workup in 2018 significant for mildly decreased protein S (in the setting of active clotting); negative for protein C deficiency, prothrombin [id number] mutation, antiphospholipid antibodysyndrome, antithrombin 3 deficiency ?? Management: - Neuro Checks per Unit protocol => stat noncontrast head CT for change in exam? - Cardiac Monitoring for 24 hours completed, negative for significant arrhythmia - Blood Pressure: - Antihypertensives: hold home furosemide for soft blood pressures - Blood Glucose - BG Goal: 140-180 - Moderate correction scale insulin if indicated - Antithrombotics: initiate enoxaparin with bridging to warfarin, continue ASA 325 mg - Statin: Atorvastatin 80 mg daily (increased form 40) - Bedside swallow ordered- passed - Brain Rehab Team consulted, appreciate recs - [facility] consulted for assistance with d/c planning, appreciate recs - Outpatient follow up in 3 month with repeat MRA to evaluate vertebral thrombus, may consider subsequent angiography if thrombus resolves ?? 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 status post C2-T3 Spine Fusion # Gastroesophageal reflux disease - Nicotine Patch - Continue home apixiban, lamictal 200 mg bid, protonix 40 daily, lyrica 300/500, seroquel 50, zonisamide 300 bid - Decrease diazepam to 5 mg PRN, as she takes at home - Hold home furosemide for soft blood pressures - Acetaminophen 650 mg [id number] PRN Current activity/mobility: PAMP Level 2 (chairbound, staff moves patient to chair TID) Diet: adult regular Tubes/lines: PIV VTE prophylaxis: therapeutic anticoagulation Code status: Full Code Disposition: Home with Home Health with expected discharge date 02/14/2021 Stable to discharge criteria (not met): Tests/procedures/consults and Acute care monitoring needs Plan discussed with [facility] Neurology Stroke and Cerebrovascular Disease Senior Front End Developer, Dr. Vinson. Please page the [facility] Neurology Stroke and Cerebrovascular Disease service pager at [phone] with any questions. Ai Vega MD Internal Medicine, PGY1 Laquita Malagon M.D. - 02/13/2021 10:32 PM CDT Miscellaneous Note Patient's medications were still in her room including apixaban bottle. Given concern of noncompliance we counted the pills. The bottle was filled for 60 tablets, 43 tablets were left in the bottle. She was discharged on 02/03 afternoon and readmitted 02/10 evening. She should have taken approximately 14tablets and she had 17 missing from her bottle. I suspect she was compliant, though she has admittedshe may have missed the morning dose on 02/10 as she felt ill from the stroke already. Angie had some fluctuations in her neurologic exam overnight. Initially around 8 PM she noted her left arm felt heavy, there was no change in her neurologic exam when I saw her, her left shoulder was hurting her from where she had had rotator cuff surgery. Around 10 PM or so I was called as she had slurred speech and was not always making sense. This was after she had received all of her night time medications including diazepam 10 mg, lamotrigine 200, oxycodone 10 mg, lyrica 600, seroquel 50 mg, and zonisamide 300 mg at the same time. She also had received an additional dose of diazepam at 2:30 for her MRI. When I examined her she was much more dysarthric, she made sense but was giggling and joking around with the exam which was different, she had asterixis as well, otherwise her exam was unchanged. SBP in the 80s during this. Her hemoglobin had dropped earlier so I obtained labs, hemoglobin was trending up (11 from 10.6), lactate and BMP were unremarkable. We did note that she had all of herhome medications in the room including her medical marijuana vape, though this would've been difficult for her to have accessed and we did not think she took this. Her exam again flucturated later in the night by nursing exam with LUE drift, however on my exam there was no drift once she got her arm to shoulder height (difficult due to her shoulder pain), no pronator drift, and no weakness on individual muscle testing. Her speech was much improved. I suspect this decompensation was due to intoxication from receiving all of these medications at thesame time, which she states she does at home, however there are notes that state she can have slurred speech at home intermittently noted by her son and she states she often has the tremor or asterixis at home often. This is similar to the event that happened the night prior as well. Tejal Singleton M.S., O.T., BCPR - 02/13/2021 3:05 PM CDT Occupational Therapy Acute Hospital Inpatient Progress Note SUBJECTIVE Patient's Name: Angie Mosquera Reason for Referral: OT evaluate and treat- Brain consult. Referring provider: Aleisha Vega MD Medical Diagnosis: 1. Stroke (HCC) 2. Deficit Cognitive Communication 3. Decline Functional Status 4. Debility History of Present Illness: # Acute onset vertigo and found to have progressive multifocal areas of posterior circulation ischemia impacting bi-cerebellar hemispheres, right occipital lobe, and bi-thalamic areas. 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 Precautions Other Precautions: fall, impaired cognition, vertigo, long standing 5#lifting restriction cervical fusion & left arm (left shoulder redo, reverse shoulder arthroplasty : done at [place]. Pt thinks before [place] but notes state 2 months ago), history of chronic pain. Fall Risk (65 and older) Fall in the last 12 months: Yes Did you have an injury with the fall?: Yes Are you fearful of falling?: No OBJECTIVE Pain: not reported Vitals: Bathing Bathing Location: Standing in shower, Seated in shower Bathing Delivery: Facilitated Body Parts Included in Task: Chest, Right arm, Left arm, Abdomen,Perineal area, Buttocks, Right upper leg, Left upper leg, Right lower leg, Left lower leg Bathing Level of Assistance: Minimal assistance LE Dressing LE Dressing Location: Chair LE Dressing Delivery: Therapist Assisted LE Dressing Items Included: Socks, Underwear/Adult incontinence briefs, Pants LE Dressing Level of Assistance: Minimal assistance ADL Comments ADL Comments: Patient seen seated in bedside chair. Facilitating mobility in room with contact guardassist and front wheeled walker. Transferring to shower area chair with supervision. [place] pants and socks with supervision. Participating in shower task with supervision. Frequently requiring cues for safety. Patient donning shorts and socks with set up assist. Returned to bedside chair with contact guard assist and walker. Patient/Family Education: safety At the end of today's therapy session patient was left seated in bedside chair with an appropriate call light within reach. Patient's needs and questions addressed during today's session. Contact monitoring: PPE used during therapy: Therapist was wearing the following PPE throughout entire session: surgicalmask, eye protection and gloves Patient was wearing a mask during therapy session: no Assessment Angie continues to participate in occupational therapy. She completed a shower and dressing activity this date with contact guard assist. She required several cues for safety during the shower task. Continuing to have concerns about cognition and safety awareness. She demonstrates significant memory impairment and this does impact her safety and participation in self cares. Barriers to Discharge Home: Current functional status, Safety concerns Barriers to Discharge Comments: Mild balance instability with mobility Comorbid Conditions: Cerebrovascular accident, Mental health disorder Personal Factors: Living situation, Needs assistive device, Safety awareness, Other (Comment)(memory) Level of Care Recommended - OT: 24 hour supervision, Assistance with mobility, Assistance with self-cares, Assistance with medications, Assistance with meals, Assistance with financial aid advisor, Assistance with transportation Recommended Adaptive Equipment - OT: Shower chair without back, Transfer tub bench, Grab bar(s) in shower Functional Goals and Timeframes: OT Goal #1: Patient will be modified independent with toileting and toilet transfer by discharge OT Goal #2: Patient will complete dressing independently by discharge OT Goal #3: Patient will complete cognitive screening to determine level of supervision needed at dismissal Plan Patient agrees with the plan of care and goals. Treatment Plan: OT Frequency: 5 times per week OT Amount: 1 visit per day OT Inpatient Duration : Until goals are met or hospital discharge Plan: Plan of care initiated OT Plan Comments: Full upper/lower body dressing, standing tolerance/functional reaching, divided/sustained attention Treatment interventions may include: Treatment Interventions: Therapeutic exercise, Therapeutic functional activity, Neuromuscular re-education, Self-care/home management Time Spent with Patient Home Management Training (min): 40 min Time Calculation Total Timed Units (min): 40 min Total Treatment Time (min): 40 min Tejal Singleton M.S., O.T., BCPR Usha Blount R.N. - 02/13/2021 1:52 PM CDT Patient discussed at Stroke Multidisciplinary Rounds. Plan for the day: PT/OT, PMR, Case Management Following DEVON, Tool Design Checker, Medication Management,MRI, CT Plan for the Stay: Stroke w/u Discharge barriers: Inpatient Needs Recommended discharge disposition: Home with [facility] Vidhi Vinson M.D. - 02/13/2021 12:12 PM CDT SUBJECTIVE I met with and briefly examined Ms. Mosquera. She is neurologically stable. ASSESSMENT / PLAN #1 Recurrent multifocal posterior circulation ischemic events #2 Known high-grade distal right vertebral artery stenosis/dissection Her compliance with medications is still in question. The plan is for an MRA to clarify the extent of her stenosis. She did apparently undergo a repeat CT/CTA due to some alteration of sensorium and increased headache yesterday. These studies were unchanged. For now, she remains on apixaban 5 mg b.i.d., aspirin 325 mg and atorvastatin 80 mg. We discussed whether to consider dual antiplatelet therapy in her versus switching to a 3-[id number]-[id number] oral anticoagulant such as rivaroxaban. However, she has other medications which are b.i.d. dosing, and changing her apixaban may not impacther overall compliance. Disposition plans are being made pending results of MR imaging. Vidhi Vinson M.D. CT CT Job ID: [id number] Irene Esteban P.T. - 02/13/2021 12:00 PM CDT Physical Therapy Acute Hospital Inpatient Treatment SUBJECTIVE Patient's Name: Angie Mosquera Reason for Referral: PT evaluate and treat- Brain consult. Referring provider: Aleisha Vega MD Medical Diagnosis: 1. Stroke (HCC) 2. Deficit Cognitive Communication 3. Decline Functional Status 4. Debility History of Present Illness: # Acute onset vertigo and found to have progressive multifocal areas of posterior circulation ischemia impacting bi-cerebellar hemispheres, right occipital lobe, and bi-thalamic areas. 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 She wants to do OP PT and says her son can drive her there. Patient Comments: Pt reports ongoing pain everywhere. She states if she could take her cannabis her pain would be better. is scheduled for MRI later today. had increased neuro sxs this am but they resolved and CT was negative. plans to dc home tomorrow. Precautions Other Precautions: fall, impaired cognition, vertigo, long standing 5#lifting restriction cervical fusion & left arm (left shoulder redo, reverse shoulder arthroplasty : done at [place]. Pt thinks before [place] but notes state 2 months ago), history of chronic pain. Fall Risk (65 and older) Fall in the last 12 months: Yes Did you have an injury with the fall?: Yes Are you fearful of falling?: No Fall Risk Comments: Patient vocalizes concerns for weakness but then does not show good judgment with her mobility and takes risk for falls OBJECTIVE Pain: chronic pain in multiple areas Sit to Stand Transfers # of Assistants: 1 Transfer Surface: Chair Level of Assistance: Supervision/set-up Comments: got up out of the blue, tried to squeeze between her tray table and her chair, walker wasn't close Stand to Sit Transfers # of Assistants: 1 Transfer Surface: Chair Transfer Equipment: Front wheeled walker Level of Assistance: Supervision/set-up Comments: not watching where she was sitting - almost missed the bench without cues from PT Gait Assessment/Training Distance (m): 20 m(20 m x 3) Surface: Even Device: Gait belt, Front-wheeled walker # of Assistants: 1 Level of Assistance: Minimal assistance Quality/Pattern: Ataxic, Shuffling Stability: minimal instability Assessment of Gait: fatigues quickly, poor posture, leaning down through walker as she fatigues Training/Intervention: cues to get walker close, stand tall, relax shoulders, cues to stop and rest instead of pushing through. At the end of today's therapy session patient was left seated in bedside chair with an appropriate call light within reach. Patient's needs and questions addressed during today's session. Contact monitoring: PPE used during therapy: Therapist was wearing the following PPE throughout entire session: surgicalmask and eye protection Patient was wearing a mask during therapy session: yes Assessment Angie exhibits ongoing chronic pain. Her balance is poor, gait is ataxic. She vocalizes some insight but does not functionally exhibit good insight or judgment. She is able to transfer but is not consistently safe and puts herself at risk for falling. She ambulated 60 feet x 3 today with front wheeled walker and minimal assistance of 1. She is open to a walker for home - which will be issued. PT hasrecommended halfway facility which she declined; PT than recommended home with 24/7 supervision/assist and home PT - which patient has chosen not to have but states she will go to OP PT and alize can drive her. Patient should not be driving at this time - cognition/on narcotics/daily cannabis use/neuro deficits. Barriers to a safe discharge home: Barriers to Discharge Home: Current functional status, Safety concerns Barriers to Discharge Comments: Mild balance instability with mobility Comorbid Conditions: Cerebrovascular accident, Mental health disorder Personal Factors: Living situation, Needs assistive device, Safety awareness, Other (Comment)(memory) Discharge Therapy Needs - PT: Ongoing skilled outpatient therapy recommended(recommended snf - pt refused. recommended home PT - pt can't get with current home health agency but she refuses to change agencies to get PT. only option left is OP PT.) Level of Care Recommended - PT: Physical assistance needed, Assistance with transportation, Cognitive assistance needed, 24 hour supervision Equipment Recommended - PT: Front-wheeled walker Equipment Vendor - PT: ordered through [employer] Functional Goals and Timeframes: PT Goal #1: Patient will be independent with transfers using least restrictive device to facilitate a safe dc. PT Goal #1 Date: 02/19/21 PT Goal #1 Status: Progressing PT Goal #2: Patient will ambulate with least restrictive device 75 meters independently to faciliatea safe dc home. PT Goal #2 Date: 02/19/21 Progress: Progressing toward goals Plan Patient agrees with the plan of care and goals. Treatment Plan: PT Frequency: 5 times per week PT Amount: 1 visit per day PT Inpatient Duration : Until goals are met or hospital discharge Plan: Continue with current plan PT Plan Comments: < 6 month old left reversed total shoulder: range of motion as tolerated per pt, continue to mobilize, ongoing safety awareness. Treatment interventions may include: Treatment/Interventions: Therapeutic exercise, Therapeutic functional activity, Neuromuscular re-education, Gait training Time Spent with Patient Therapeutic Activity (min): 25 min Total Timed Units (min): 25 min Total Treatment Time (min): 25 min Irene Esteban PBrittonTBritton Boris Saenz M.A., [facility] WORKING SUPERVISOR - 02/13/2021 10:52 AM CDT Speech Language Pathology Communication/Cognitive Treatment- Acute Care Session Type: Treatment Length of session: 18 minutes SUBJECTIVE Patient presented upright in chair and was alert. General Arousal/Alertness: Delayed responses to stimuli Current Vision: Other (Comment)(Patient reported she wears reading glasses, but did not have them with her today) Hearing: Impaired Hearing Exceptions: Other (Comment)(Patient has bilateral hearing aids, but was not wearing them today. Hearing was adequate for today's evaluation in a quiet room) Behavior: Cooperative, Alert Pain No overt pain reported. OBJECTIVE Objective Session Data Motor Speech: Voice: Impaired Respiration: Within Normal Limits (WNL)(Patient tended to use frequent breath groups during speech) Resonance (PROCUREMENT MANAGER Function): Within Normal Limits (WNL) Articulation: Within Normal Limits (WNL) Speech AMRs: Within Normal Limits Speech SMRs: Mild, Slow Intelligibility: Intelligible Cognition: Overall Cognitive Status: Impaired Arousal/Alertness: Delayed responses to stimuli Memory: Impaired Short-term Memory: Moderate Working Memory: Mild Problem Solving: Impaired Executive Functioning: Impaired Cognition Comments: (Proverbs: Impaired(Patient struggled to provide the meanings of proverbs)) Assessment Ms. Mosquera was seen by Speech Pathology for treatment targeting cognitive communication skills. Ms. Mosquera presented upright in chair and was alert. Patient reports more difficulty with processing and memory. She benefited from a logical cue to be oriented to year. She participated in a delayed memory task (1/5), a working memory task (0/2), and a problem solving task (33% accuracy). She was educated on memory strategies and demonstrated understanding. Ms. Mosquera presents with a moderate cognitive-communication impairment characterized by difficulties with delayed memory, working memory, delayed processing, and executive dysfunction. She benefits from utilizing memory strategies, increased processing time, repetitions, and limited distractions. Ms. Mosquera will continue to benefit from ongoing Speech Pathology services during and after hospitalization. Contact Monitoring: Clinician was wearing the following PPE for the duration of today's session(s): surgical mask and eye protection Goals: Cognition Short Term Goal 1 Cognition Short Term Goal 1: Patient will achieve at least 80% accuracy on functional cognitive tasks. 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 - 02/13/2021 9:38 AM CDT Pharmacist Progress Note Reason for admission: vertigo, new posterior circulation infarcts; recently discharged from the stroke service 01/31/21. PMH: prior strokes, vertebral thrombosis previously on warfarin, HTN, HLD, insulin resistance, fibromyalgia,chronic pain syndrome, nicotine use, esophageal spasm OBJECTIVE Home medications being held/changed: holding furosemide, vitamin supplements; temporarily holding opioids and benzodiazepines Patient own medications: none VTE prophylaxis: apixaban Stress ulcer prophylaxis: pantoprazole, in place of home esomeprazole Antimicrobial prophylaxis: none ASSESSMENT / PLAN 1. Continue home apixaban 5 mg twice daily. Apixaban anti Xa level detected on admission, though subtherapeutic. Trough level obtained today is therapeutic. 2. Added aspirin 325 mg daily to regimen. She was taking aspirin 81 mg/day with warfarin therapy just recently. 3. Increased atorvastatin to 80 mg daily. LDL 48 early January. 4. Home chronic medications for pain and mood now resumed. 5. Continue to hold furosemide allowing for permissive HTN. She has not required the use of PRN hydralazine. Changes to medications anticipated at discharge: new aspirin 325 mg/day and increased atorvastatin dose to 80 mg/day. Jessie Rock Pharm.D., R.Ph. Raulito Rodriguez M.D., M.S. - 02/13/2021 7:42 AM CDT NEUROLOGY STROKE SERVICE PROGRESS NOTE SUBJECTIVE Overnight she did develop a 9/10 occipital headache and was found to have worsened ataxia and confusion on exam. CT and CTA were ordered which were unchanged from prior. This morning she continues to complain of headache in the occipital region bilaterally although improved from last night. She continues to chronic left shoulder pain. She otherwise has no acute complaints this morning. I have reviewed the current medication list. OBJECTIVE Temperature: [36.4 ??C-37.1 ??C] 37.1 ??C Heart Rate: [66-67] 66 Resp Rate: [10-16] 12 Blood Pressure: (102-127)/(55-84) 123/77 SpO2: [95 %-98 %] 96 % Flow Rate (L/min): [0 L/min] 0 L/min Pulse Rate: [63-76] 71 Physical Exam: Constitutional: sleeping in bed Lungs: Breathing comfortably on room air. Clear to auscultation bilaterally. Cardiac: regular rate and rhythm Abdomen: Soft, non-tender, non-distended. Skin: Tattoos on skin throughout, no rashes seen Neurologic: Mental status: sleeping but easily arousable to physical stimuli, drowsy, oriented to time, place and person Speech: Clear. Language: No evidence of aphasia. Cranial nerves: PERRL, EOMI with horizontal nystagmus, apparent R visual field cut although difficult to assess, facial movements full and symmetric, hearing intact to voice Motor: Upper extremities antigravity 10 s and lowers 5 s without drift. Tone is normal in bilateral upper and lower extremities. Sensory: Sensation is intact to light touch of distal extremities bilaterally. Reflexes: biceps (0,0), brachioradialis (0,0), Achilles (0,0). Plantar flexor responses are flexor-flexor. Coordination: difficulty with FNF on right; mild difficulty with FNF on left. Normal heel montes bilaterally. Diagnostics: I have reviewed the labs and diagnostics from admission. ASSESSMENT / PLAN Ms. Angie Mosquera is a 55 y.o. female with stroke risk factors including multiple prior strokes,vertebral thrombus possibly 2/2 dissection, insulin resistance, hypertension, hyperlipidemia, cervical spinal fusion in 2018, who is currently smoking who is hospitalized on the cerebrovascular neurology service for workup and management of new posterior distribution strokes, likely secondary to vertebral dissection, but potentially more proximal embolic source. ?? Per her report, she has been compliant with her anticoagulation, however the outside ED did get history that she only started apixiban in the last couple of days. Apixiban Xa level was positive implying she does have some in her system, however this is much lower than we'd expect if she were consistently taking it as prescribed. DEVON was negative for intracardiac thrombus but did show small [id number] shunt through PFO accentuated with release of Valsalva. Plan today: - MRA (outside image is poor quality) - continue apixaban and aspirin 325 - continue to hold lasix in acute stroke period (indication for this is unclear) - Anticipate DC home tomorrow with existing home health, patient continues to decline placement ?? #1 Acute Ischemic Stroke, posterior circulation likely embolic source secondary to vertebral dissection ?? Workup: Neuroimaging - NCHCT (at [facility]): revealed no acute intracranial abnormality - MRI Brain (at [facility]SH): multiple late acute infarcts in the cerebellum and occipital lobes, subacute infarct to the left occipital lobe and subacute bilateral thalamic infarcts, which were noted on - Baseline ECG: normal sinus rhythm, unchanged from prior Stroke risk factor work up (labs from last admission, will not repeat): - HbA1c (01/31): 6.1% - Fasting lipid panel (02/01): total cholesterol 157, HDL 88, LDL 48, TGs 107 - TSH (01/31): 0.3 - Echocardiogram (02/11)- negative for intracardiac thrombus, PFO redemonstrated with small kxlxj-yv-mape shunt accentuated on release of Valsalva - Thrombophilia workup in 2018 significant for mildly decreased protein S (in the setting of active clotting); negative for protein C deficiency, prothrombin [id number] mutation, antiphospholipid antibodysyndrome, antithrombin 3 deficiency ?? Management: - Neuro Checks per Unit protocol => stat noncontrast head CT for change in exam? - Cardiac Monitoring for 24 hours completed, negative for significant arrhythmia - Blood Pressure:?? - Permit hypertension up to 220/110 for first 24 hours with PRN hydralazine 50 mg q6hr oral ordered - Antihypertensives: hold home antihypertensives - Blood Glucose - BG Goal: 140-180 - moderate correction scale insulin if indicated - Antithrombotics: continue home apixiban, start asa 325 - Statin: Atorvastatin 80 mg daily (increased form 40) - Bedside swallow ordered- passed - Brain Rehab Team consulted, appreciate recs - SWS consulted for assistance with d/c planning, appreciate recs ?? 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 status post C2-T3 Spine Fusion # Gastroesophageal reflux disease - Nicotine Patch - Continue home apixiban, lamictal 200 mg bid, protonix 40 daily, lyrica 300/500, seroquel 50, zonisamide 300 bid, diazepam 10 bid - Hold home furosemide for permission hypertension - Acetaminophen 650 mg [id number] PRN Current activity/mobility: PAMP Level 2 (chairbound, staff moves patient to chair TID) Diet: adult regular Tubes/lines: PIV VTE prophylaxis: therapeutic anticoagulation Code status: Full Code Disposition: Home with Home Health with expected discharge date 02/14/2021 Stable to discharge criteria (not met): Tests/procedures/consults and Acute care monitoring needs Plan discussed [facility] Cerebrovascular Disease Senior Front End Developer, Dr. Vinson. Please page the [facility] Stroke and Cerebrovascular Disease service pager at [phone] with any questions. Raulito Rodriguez MD Internal Medicine, PGY1 Pager [phone] Boris Saenz M.A., CCC-SHORE WORKING SUPERVISOR - 02/12/2021 2:35 PM CDT 02/12/21 1435 Reason Therapy Missed Reason Therapy Missed Other (comment) Attempted x2. First attempt, patient resting in bed and had to use the restroom and wanted SHORE WORKING SUPERVISOR to come back later. Second attempt, patient resting in bed and pleasantly declined speech therapy. Will continue to follow for cognitive- communication when patient is willing to participate. Jose Guadalupe Penny M.D. - 02/12/2021 11:22 AM CDT Patient now has her spinal cord stimulator. She is charging it right now at bedside. When the patient is getting prepared to get her MRI, she may turn her spinal cord device off using her controller. The device is MRI compatible with a Lucy up to 1.5. This was also confirmed with the [employer] Rep Heather Morgan. Jose Guadalupe Penny MD Raulito Rodriguez M.D., M.S. - 02/12/2021 11:04 AM CDT NEUROLOGY STROKE SERVICE PROGRESS NOTE SUBJECTIVE No overnight events. Continues to complain of vertigo with associated nausea no vomiting this morning. Otherwise no new complaints. I have reviewed the current medication list. OBJECTIVE Temperature: [36.3 ??C-36.6 ??C] 36.4 ??C Heart Rate: [70-87] 82 Resp Rate: [8-16] 15 Blood Pressure: (98-125)/(54-71) 119/71 SpO2: [93 %-98 %] 98 % Pulse Rate: [63-89] 63 Physical Exam: Constitutional: resting comfortably in bed Lungs: Breathing comfortably on room air. Clear to auscultation bilaterally. Cardiac: regular rate and rhythm Abdomen: Soft, non-tender, non-distended. Skin: Tattoos on skin throughout, no rashes seen Neurologic: Mental status: Alert and oriented to time, place and person Speech: Clear. Language: No evidence of aphasia. Cranial nerves: PERRL, EOMI with horizontal nystagmus, visual jhaveri intact to confrontation, facialmovements full and symmetric, hearing intact to voice Motor: Upper extremities antigravity 10 s and lowers 5 s without drift. Tone is normal in bilateral upper and lower extremities. Sensory: Sensation is intact to light touch of distal extremities bilaterally. Coordination: Mild difficulty FNF on right; normal FNF left. Normal heel montes bilaterally. Diagnostics: I have reviewed the labs and diagnostics from admission. ASSESSMENT / PLAN Ms. Angie Mosquera is a 55 y.o. female with stroke risk factors including multiple prior strokes,vertebral thrombus possibly 2/2 dissection, insulin resistance, hypertension, hyperlipidemia, cervical spinal fusion in 2018, who is currently smoking who is hospitalized on the cerebrovascular neurology service for workup and management of new posterior distribution strokes, likely secondary to vertebral dissection, but potentially more proximal embolic source. ?? Per her report, she has been compliant with her anticoagulation, however the outside ED did get history that she only started apixiban in the last couple of days. Apixiban Xa level was positive implying she does have some in her system, however this is much lower than we'd expect if she were consistently taking it as prescribed. DEVON was negative for intracardiac thrombus but did show small zosui-lz-okay shunt through PFO accentuated with release of Valsalva. Plan today: - MRA (outside image is poor quality) - continue apixaban and aspirin 325 - continue to hold lasix in acute stroke period (indication for this is unclear) - increase atorvastatin to 80 mg ?? #1 Acute Ischemic Stroke, posterior circulation likely embolic source secondary to vertebral dissection ?? Workup: Neuroimaging - NCHCT (at OSH): revealed no acute intracranial abnormality - MRI Brain (at OSH): multiple late acute infarcts in the cerebellum and occipital lobes, subacute infarct to the left occipital lobe and subacute bilateral thalamic infarcts, which were noted on - Baseline ECG: normal sinus rhythm, unchanged from prior Stroke risk factor work up (labs from last admission, will not repeat): - HbA1c (01/31): 6.1% - Fasting lipid panel (02/01): total cholesterol 157, HDL 88, LDL 48, TGs 107 - TSH (01/31): 0.3 - Echocardiogram (02/11)- negative for intracardiac thrombus, PFO redemonstrated with small hexqo-no-cguz shunt accentuated on release of Valsalva - Thrombophilia workup in 2018 significant for mildly decreased protein S (in the setting of active clotting); negative for protein C deficiency, prothrombin [id number] mutation, antiphospholipid antibodysyndrome, antithrombin 3 deficiency ?? Management: - Neuro Checks per Unit protocol => stat noncontrast head CT for change in exam? - Cardiac Monitoring for 24 hours completed, negative for significant arrhythmia - Monitor vitals per unit routine protocol - Blood Pressure:?? - Permit hypertension up to 220/110 for first 24 hours with PRN hydralazine 50 mg q6hr oral ordered - Antihypertensives: hold home antihypertensives - Blood Glucose - BG Goal: 140-180 - moderate correction scale insulin if indicated - Antithrombotics: continue home apixiban, start asa 325 - Statin: Atorvastatin 80 mg daily (increased form 40) - Bedside swallow ordered- passed - Brain Rehab Team consulted, appreciate recs - SWS consulted for assistance with d/c planning, appreciate recs ?? 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 status post C2-T3 Spine Fusion # Gastroesophageal reflux disease - Nicotine Patch - Continue home apixiban, lamictal 200 mg bid, protonix 40 daily, lyrica 300/500, seroquel 50, zonisamide 300 bid, diazepam 10 bid - Hold home furosemide for permission hypertension - Acetaminophen 650 mg [id number] PRN Current activity/mobility: PAMP Level 2 (chairbound, staff moves patient to chair TID) Diet: adult regular Tubes/lines: PIV VTE prophylaxis: therapeutic anticoagulation Code status: Full Code Disposition: Uncertain with expected discharge date Stable to discharge criteria (not met): Tests/procedures/consults and Acute care monitoring needs Plan discussed with [facility] Neu[facility] Stroke and Cerebrovascular Disease Senior Front End Developer, Dr. Vinson. Please page the [facility] Neu[facility] Stroke and Cerebrovascular Disease service pager at [phone] with any questions. Raulito Rodriguez MD Internal Medicine, PGY1 Pager [phone] Usha Blount R.N. - 02/12/2021 11:03 AM CDT Patient discussed at Stroke Multidisciplinary Rounds. Plan for the day: PT/OT, Case management consult, ekg monitor tech, Medication management, MRI Plan for the Stay: Stroke w/u Discharge barriers: Inpatient needs Recommended discharge disposition: Home with home health care services Vidhi Austin M.D. - 02/12/2021 10:52 AM CDT SUBJECTIVE HISTORY OF PRESENT ILLNESS Ms. Mosquera remains neurologically stable with mild truncal ataxia, left upper extremity rebound, and mild ataxic dysarthria this morning. She feels generally well. ASSESSMENT / PLAN #1 Recurrent multifocal posterior circulation ischemic events #2 Known high-grade distal right vertebral artery stenosis/dissection She has been on apixaban, yet her levels were extremely low despite her attestation regarding compliance. An MRA to further evaluate any change in her intracranial stenosis is planned. However, the battery of her [employer] spinal cord stimulator device was low precluding the ability to turn off the device or change it to an MRI compatible mode. The patient's son will be bringing the device college or university business manager today so that the device can be turned off or on to an MR compatible mode with plans for MRA imaging. For now, she remains on apixaban 5 mg b.i.d.,aspirin 325 mg, and atorvastatin 80 mg in addition to her other baseline medications. Vidhi Vinson M.D. CT CT Job ID: [id number] Jose Guadalupe Penny M.D. - 02/11/2021 4:29 PM CDT The neurology service contacted us for interrogation of her Medtronic SCS device. The SCS device wasplaced at an outside [facility] for low back pain and lower extremity pain in the S1 nerve distribution that has given her significant pain relief. In addition, they asked for our assistance in turning off the device (e.g. changing it to an MRI compatible mode). Unfortunately, during interrogation the patient's device was unable to be connected since the battery was low. Thus, we were not able to turn off the device or change in into an MRI-compatible mode. The patient's son will be br inging her device college or university business manager tomorrow. We will plan to turn the device off or to an MRI-compatible modeso that she may be able to get an MRI. This was discussed with the neurology team and the team was in agreement. Jose Guadalupe Penny MD Sanchez Warren M.D., Ph.D. - 02/11/2021 3:19 PM CDT Consult received, but Ms Mosquera was unavailable this morning or this afternoon when I came by. I will check back early in the morning. Tejal Singleton M.S., O.T., BCPR - 02/11/2021 2:39 PM CDT 02/11/21 1439 Reason Therapy Missed Reason Therapy Missed At test/procedure. Unable to complete OT evaluation this date. Will reattempt at a later date Tejal Singleton M.S., O.T., BCPR 02/11/2021 Catalina Panchal, R.N. - 02/11/2021 1:37 PM CDT SUBJECTIVE Attempted to see patient to address positive ESDP score/discharge planning needs. OBJECTIVE Patient not seen at this time. ASSESSMENT Unable to complete assessment as patient was not available when Case Management attempted to meet with her. She was away at testing during multiple attempts to see her. PLAN Case Management will attempt to see patient at a later time, when available. Catalina Panchal, R.N. - 02/11/2021 11:13 AM CDT Patient discussed at Stroke Multidisciplinary Rounds. Plan for the day: PT/OT, PMR, Case Management Consult, DEVON, Tool Design Checker, Medication Management, MRI Plan for the Stay: Stroke w/u Discharge barriers: Inpatient Needs Recommended discharge disposition: Pending PT/OT Recs Jessie Llanos, Pharm.D., R.Ph. - 02/11/2021 8:43 AM CDT Pharmacist Progress Note Reason for admission: vertigo, new posterior circulation infarcts; recently discharged from the stroke service 01/31/21. PMH: prior strokes, vertebral thrombosis previously on warfarin, HTN, HLD, insulin resistance, fibromyalgia,chronic pain syndrome, nicotine use, esophageal spasm OBJECTIVE Home medications being held/changed: holding furosemide, vitamin supplements; temporarily holding opioids and benzodiazepines Patient own medications: none VTE prophylaxis: apixaban Stress ulcer prophylaxis: pantoprazole, in place of home esomeprazole Antimicrobial prophylaxis: none ASSESSMENT / PLAN 1. Continue home apixaban 5 mg twice daily. Apixaban anti Xa level ordered to assess compliance, though heparin anti Xa and INR are normal. 2. Add aspirin 325 mg daily back to regimen. She was taking aspirin 81 mg/day with warfarin therapy just recently. Aspirin was discontinued when apixaban was started 3. Increase atorvastatin to 80 mg daily. LDL 48 early January. 4. Consider resuming home chronic medications for anxiety and pain control when appropriate. She is continued on her home lamotrigine, pregabalin, zonisamide and fluoxetine. 5. She was started on bupropion for smoking cessation during the last hospitalization. Changes to medications anticipated at discharge: new aspirin 325 mg/day and increased atorvastatin dose to 80 mg/day. Jessie Rock Pharm.D., R.Ph. Laquita Malagon M.D. - 02/11/2021 7:25 AM CDT NEUROLOGY STROKE SERVICE PROGRESS NOTE SUBJECTIVE Ms. Mosquera has vertigo this morning and nausea. Apixaban Xa level positive at 16. I have reviewed the current medication list. OBJECTIVE Temperature: [36.4 ??C-36.9 ??C] 36.4 ??C Heart Rate: [67-83] 83 Resp Rate: [14-23] 14 Blood Pressure: (128-153)/(64-83) 138/64 SpO2: [93 %-97 %] 93 % Pulse Rate: [60-79] 79 Physical Exam: Constitutional: resting comfortably in bed Lungs: Breathing comfortably on room air. Clear to auscultation bilaterally. Cardiac: regular rate and rhythm Abdomen: Soft, non-tender, non-distended. Skin: Tattoos on skin throughout, no rashes seen Neurologic: Mental status: Alert and oriented to time, place and person Speech: Clear. Language: No evidence of aphasia. Cranial nerves: PERRL, EOMI without nystagmus, visual jhaveri intact to confrontation, facial movements full and symmetric, hearing intact to voice Motor: Upper extremities antigravity 10 s and lowers 5 s without drift. Tone is normal in bilateral upper and lower extremities. Sensory: Sensation is intact to light touch of distal extremities bilaterally. Reflexes: biceps (0,0), triceps (0,0), brachioradialis (0,0), patellar (0,0) and Achilles (0,0). Plantar flexor responses are flexor-flexor. Coordination: Mild difficulty FNF on right; normal FNF left and heel montes bilaterally. Diagnostics: I have reviewed the labs and diagnostics from admission. ASSESSMENT / PLAN Ms. Angie Mosquera is a 55 y.o. female with stroke risk factors including multiple prior strokes,vertebral thrombus possibly 2/2 dissection, insulin resistance, hypertension, hyperlipidemia, cervical spinal fusion in 2018, who is currently smoking who is hospitalized on the cerebrovascular neurology service for workup and management of new posterior distribution strokes, likely secondary to vertebral dissection, but potentially more proximal embolic source. ?? She continues to complain of dizziness that she describes as the room spinning around her. Per her report, she has been compliant with her anticoagulation, however the outside ED did get history that she only started apixiban in the last couple of days. Apixiban Xa level was positive implying she does have some in her system, however this is much lowerthan we'd expect if she was taking this properly per pharmacy. We will proceed with repeat MRA to better evaluate for dissection. DEVON to evaluate for cardiac thrombus and aortic disease. Plan today: - DEVON, MRA (outside image is poor quality) - restart home apixaban, diazepam - Start aspirin 325 - continue to hold lasix in acute stroke period; will likely restart tomorrow - increase atorvastatin to 80 mg ?? #1 Acute Ischemic Stroke, posterior circulation likely embolic source ?? Workup: Neuroimaging - NCHCT (at OSH): revealed no acute intracranial abnormality - MRI Brain (at OSH): multiple late acute infarcts in the cerebellum and occipital lobes, subacute infarct to the left occipital lobe and subacute bilateral thalamic infarcts, which were noted on - Baseline ECG: normal sinus rhythm, unchanged from prior Stroke risk factor work up (labs from last admission, will not repeat): - HbA1c (01/31): 6.1% - Fasting lipid panel (02/01): total cholesterol 157, HDL 88, LDL 48, TGs 107 - TSH (01/31): 0.3 - Echocardiogram- ordered, PFO noted on DEVON in 2019 - Thrombophilia workup in 2019 significant for mildly decreased protein S (in the setting of active clotting); negative for protein C deficiency, prothrombin [id number] mutation, antiphospholipid antibodysyndrome, antithrombin 3 deficiency ?? Management: - Neuro Checks per Unit protocol => stat noncontrast head CT for change in exam? - Cardiac Monitoring for 24 hours - Monitor vitals per unit routine protocol - Blood Pressure:?? - Permit hypertension up to 220/110 for first 24 hours with PRN hydralazine 50 mg q6hr oral ordered - Antihypertensives: hold home antihypertensives - Blood Glucose - BG Goal: 140-180 - Hold oral DM meds and start moderate correction scale insulin if indicated based upon initial results - Antithrombotics: continue home apixiban, start asa 325 - Statin: Atorvastatin 80 mg daily (increased form 40) - Bedside swallow ordered- passed - Brain Rehab Team consulted, appreciate recs - [facility] consulted for assistance with d/c planning, appreciate recs ?? 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 status post C2-T3 Spine Fusion # Gastroesophageal reflux disease - Nicotine Patch - Continue home apixiban, lamictal 200 mg bid, protonix 40 daily, lyrica 300/500, seroquel 50, zonisamide 300 bid, diazepam 10 bid - Hold home furosemide for permission hypertension - Acetaminophen 650 mg [id number] PRN #1 Stroke (HCC) Current activity/mobility: PAMP Level 2 (chairbound, staff moves patient to chair TID) Diet: adult regular Tubes/lines: PIV VTE prophylaxis: therapeutic anticoagulation Code status: Full Code Disposition: Uncertain with expected discharge date Stable to discharge criteria (not met): Tests/procedures/consults and Acute care monitoring needs Plan discussed with [facility] Neurology Stroke and Cerebrovascular Disease Senior Front End Developer, Dr. Vinson. Please page the [facility] Neurology Stroke and Cerebrovascular Disease service pager at [phone] with any questions. Laquita Malagon M.D. documented in this encounter H&P Notes Vidhi Vinson M.D. - 02/11/2021 11:32 AM CDT SUBJECTIVE CHIEF COMPLAINT/REASON FOR VISIT Mrs. Mosquera is a 55-year-old woman with a history of exogenous estrogen use and nicotine dependency, who has been hospitalized several times with recurrent multifocal posterior circulation insufficiency in the setting of a right vertebral thrombus/dissection and subtherapeutic INR. HISTORY OF PRESENT ILLNESS She also has a history of hypertension and dyslipidemia, as well as a left paraclinoid and ruptured intracranial aneurysm. She was initially evaluated by Dr. Diehl in August of 2020. Imaging at that time demonstrated a widely patent cervical arterial vasculature without evidence of a distal right vertebral artery thrombus. In late November, she had recurrent symptoms, and on January 31 she was again hospitalized with a subtherapeutic INR and evidence for multifocal areas of restricted diffusion in bilateral cerebral hemispheres, cerebellar vermis, right thalamus, and bilateral occipital lobes representing acute, subacute, and chronic infarctions. The MRA demonstrated high-grade narrowing of the distal V3 segment of the right vertebral artery and mild narrowing of the proximal V4 segment, somewhatdifficult to visualize on the axial T1 pre- gadolinium imaging due to artifact from the patient's posterior instrumented fusion. There is evidence for a partially organized thrombus without progressive stenosis from previous CTA imaging several days prior. The high-grade distal stenosis was also seen on the August imaging studies, although is difficult to ascertain whether the thrombus was present atthat time. Due to concerns about her compliance on Coumadin, she was switched to apixaban 5 mg b.i.d. on 02/04/2020, with the plan to follow up with Dr. Diehl with a CTA of the head and neck in 3 months' time. Unfortunately, yesterday, on 02/10/2021, she developed recurrent vertiginous dizziness and unsteadiness without nystagmus noted. MR imaging demonstrated progressive multifocal areas of posterior circulation ischemia impacting bi-cerebellar hemispheres, right occipital lobe, and bi- thalamic areas. No clear evidence of restricted diffusion in the anterior circulation. Tiny punctate foci of restricted diffusion in the right occipital lobe as well. The patient states that she was compliant with her apixaban since discharge from the hospital approximately 8 days ago. OBJECTIVE PHYSICAL EXAMINATION Neurologic: On exam today, she has mild truncal ataxia, subtle left upper extremity rebound, but otherwise no appendicular ataxia. No dysarthria, no nystagmus, and an otherwise intact bulbar and motor examination. Plantar responses are equivocal to downgoing bilaterally. ASSESSMENT / PLAN #1 Recurrent multifocal posterior circulation ischemic events #2 Known high-grade atherostenotic narrowing/?dissection of the distal right vertebral artery To my view, on most recent MRA, which is suboptimal quality, there are tandem stenoses of the distalright vertebral artery as before. It is difficult to assess whether there has been progression. I have requested a repeat MRA, in view of the technical quality of the study, and in order to determine further management options. She was not apparently on an antiplatelet agent at the time of this most recent infarct and this has been added. We will also increase her statin to 80 mg. I will review results of imaging when available. Vidhi Vinson M.D. CT CT Job ID: [id number] Clemente Aiken M.D. - 02/11/2021 5:58 AM CDT STROKE H&P SUBJECTIVE This is a supervisory note for Dr. Vega. Ms. Mosquera is a 55-year-old woman who was direct admitted to the Neurology Stroke Service in the setting of acute onset vertigo with head imaging showing multiple posterior circulation strokes. She has a complicated cerebrovascular history that is well outlined in the H&P notes from 10 days ago on 02/01/2021. In brief, on 01/31/2021 she presented with acute onset vertigo and was found to have new posterior circulation strokes. She had recently been started on warfarin in the setting of recurrence of right vertebral artery thrombus and a new right cerebellar stroke. Her INR was subtherapeutic. Prior to discharge on 02/03/2021 she was started on apixaban 5 milligrams twice daily. She reports that since then she has felt well and has been taking her apixaban as prescribed withoutany missed doses. On the morning of 02/10/2021 she woke up in her usual state of health. She tells me she is certain she took her morning dose of apixaban. Later in the morning she experienced acute onset spinning vertigo. She was taken to her local emergency department. MRI brain shows numerous interval strokes in the cerebellum bilaterally well as a region of ischemiain the left occipital lobe. Reviewing her MRA from the outside facility, there appears to be worsening of the distal V3 segment narrowing. I reviewed this directly with our in-house radiology team. They agree that there is a mildincrease in narrowing but there still appears to be flow through this region and distal reconstitution. The right vertebral artery still appears to contribute to the basilar. There is no obvious evidence of a floating thrombus, though the sequences are limited due to artifact. She was subsequently transferred to [facility] as a direct admission. OBJECTIVE Neurologic examination: She is alert and interactive. Visual jhaveri full to confrontation. No nystagmus. Impaired suppression of VOR. Mild difficulty with right [id number]. Kgrcvv-qypv-cwzcyy normal on the left. Heel-montes normal bilaterally. No truncal sway when seated upright. Remainder of examination per Dr. Vega. ASSESSMENT/PLAN #1 Multifocal posterior circulation strokes Ms. Mosquera presents with new multifocal posterior circulation strokes as well as increased narrowing of the right vertebral artery. She reports that she has been taking her apixaban as prescribed. In the past there has been concern that she has been non adherent to medications given that she presented with an INR of 1.35 at the time of her last admission. To help better clarify the cause of her progressive strokes, we will obtain an anti Xa level. While the individual strokes are small in size, the high number of strokes leads to a not insignificant amount of infarcted tissue in the cerebellum. With that comes the risk of life-threatening hemorrhagic transformation. With this in mind, we will wait at least until morning to administer her next dose of apixaban rather than giving this in the middle of the night on the general floor. One option would be starting a heparin infusion so that it could be discontinued immediately if her exam worsens,but I defer that to the day team. Alternatively aspirin could be used temporarily if anticoagulationneeds to be deferred. If it is determined that she has been non-adherent with her medications, then it is possible that nofurther workup is immediately needed. However, I defer further investigations to the Stroke Service. Remainder per Dr. Vega. Aelisha Vega M.D. - 02/10/2021 7:56 PM CDT Cerebrovascular Neurology Admission Note SUBJECTIVE CHIEF COMPLAINT Dizziness HISTORY OF PRESENT ILLNESS: Ms. Angie Mosquera is a 55 y.o. female with medical comorbidities significant for left supraclinoid and paraclinoid ICA aneurysm, vertebral artery dissection with recurrent thrombus causing recurrent cerebellar and occipital strokes (since 2018) on apixaban who presented to an outside hospital complaining of vertigo and ataxia and was found to have new cerebellar infarcts. Her first stroke occurred in March 2019. She was started on warfarin at that time which was discontinued 6 months due to no MRA evidence of thrombus and no further events. On 12/20/20, she developed gait instability and dizziness. At that time, CT angiogram demonstrated new cerebellar infarcts and recrudescence of the right vertebral artery thrombus. Warfarin was restarted at that time. She presented again on 01/31/21 for vertigo and ataxia and was found to have infarctions in the posterior circulation of differing ages. MRA showed high grade narrowing of the distal V3 segment of the right vertebral artery and mild narrowing of the proximal V4 segment of the right vertebral artery. At that time, warfarin was changed to apixaban due to variable INR with subtherapeutic level at presentation. Symptoms of her most recent stroke had been improving since she was discharged on 02/03 until she woke up this morning feeling dizzy, which she described as feeling like the room was spinning around her. She also complained of not being able to walk and nausea and 1 episode of vomiting. She tried to walk to the bathroom and fell hitting her head on the wall. She was not able to crawl to a phone for help. A family member came home (after noon based on the OSH records) and called an ambulance who took her to [facility]. In the emergency department, her Berlin stroke score was 0. A CT of her head was performed whichwas negative for acute bleeding. A subsequent MRI was performed which showed multiple late acute infarcts in the cerebellum and occipital lobes. She also has a subacute infarct to the left occipital lobe with subacute infarcts of bilateral thalami. She was not a candidate for tPA given recent ischemicCVA and current anticoagulation use. She was transferred to [facility] for further evaluation and management. On admission, she complains of dizziness and a headache. She is otherwise stable and has no acute complaints. She reports starting apixaban at discharge on 02/03 and has been taking it twice daily without missing any doses. She believes she last took her morning dose on 02/10 (though she is unsure and that is unlikely given her symptom onset and inability to walk upon waking up). Prior workup for recurrent strokes has been shown for vertebral artery dissection with high-grade narrowing of the distal V3 segment of the right vertebral artery and mild narrowing of the proximal V4 segment of the right vertebral artery. DEVON in 2019 showed a patent foramen ovale without evidence of an intracardiac thrombus. She has no know documented atrial fibrillation and lower extremity ultrasound have been negative for DVT. Thrombophilia workup was negative in March 2019. Review of Systems: ROS as stated in the HPI, all other systems were reviewed and are negative Medications, allergies, past medical, surgical, social, and family history were reviewed in the chart and updated as appropriate. 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 She continues to smoke cigarettes. Intermittent medical cannabis for chronic pain syndrome. She denies alcohol use. OBJECTIVE Physical Exam: Constitutional: well-developed, well-nourished, resting comfortably in bed Lungs: Breathing comfortably on room air. Clear to auscultation bilaterally. Cardiac: regular rate and rhythm Abdomen: Soft, non-tender, non-distended. Skin: No rash on exposed skin. Neurologic: Mental status: Alert and oriented to time, place and person Speech: Clear. Language: No evidence of aphasia. (Naming, reading, repetition and comprehension are intact.) Cranial nerves: PERRL, EOMI, visual jhaveri intact to confrontation, facial movements full and symmetric, sensation intact to light touch and pinprick in the V1-V3 distributions, hearing intact to voice, tongue protrudes in midline, shoulder shrug is appropriate in strength. Motor: Bilateral upper and lower extremity strength evaluated including: (R, L) deltoids (0,0), biceps (0,0), triceps (0,0), wrist extension (0,0), finger extension (0,0), interossei (0,0), iliopsoas (0,0), knee flexion (0,0), knee extension (0,0), ankle dorsiflexion (0,0), toe extension (0,0). Tone is normal in bilateral upper and lower extremities. Sensory: Sensation is intact to pinprick of distal extremities bilaterally. Coordination: Finger to nose and heel to montes are normal bilaterally. Gait: Assessed with patient using walker, as she was concerned about falling without walker. Gait slow. Appropriate width. Narrow stance. Unable to assess toe, heel, and tandem walking. NIH Stroke Scale 1A. LOC: 0=alert; keenly responsive 1B. Questions: 0=answers both questions correctly 1C. Commands: 0=Performs both tasks correctly 2. Best Gaze: 0=normal 3. Visual: 0=No visual loss 4. Facial Palsy: 0=Normal symmetric movement 5A. Left Arm Motor: 0=No drift, limb holds 90 (or 45) degrees for full 10 seconds 5B. Right Arm Motor: 0=No drift, limb holds 90 (or 45) degrees for full 10 seconds 6A. Left Leg Motor: 0=No drift, leg holds 30 degrees for full 5 seconds 6B. Right Leg Motor: 0=No drift, leg holds 30 degrees for full 5 seconds 7. Limb Ataxia: 0=Absent 8. Sensory: 0=Normal; no sensory loss 9. Best Language:0=No aphasia, normal 10. Dysarthria: 0=Normal 11. Extinction: 0=No abnormality TOTAL SCORE: 0 I have reviewed the labs, ECG and diagnostics from last 6 months. ASSESSMENT / PLAN Ms. Agnie Mosquera is a 55 y.o. female with stroke risk factors including multiple prior strokes,vertebral thrombus, insulin resistance, hypertension, hyperlipidemia who is hospitalized on the cerebrovascular neurology service for workup and management of new posterior distribution strokes, likelysecondary to an embolic source. She continues to complain of dizziness that she describes as the room spinning around her. At this time, her neuro exam is unremarkable including coordination and extraocular motion. No nystagmus noted. Gait was very difficult to assess given that she was using a walker. MRI shows multiple new cerebellar infarcts of varying ages. Per her report, she has been compliant with her anticoagulation. It is unclear why she continues to have recurrent embolization despite therapeutic anticoagulation. Thrombophilia workup has been done in the past and was unremarkable. Anti-Xa level has been ordered to assess therapeutic level of apixaban to identify if this is a failure of anticoagulation. Given the extensive nature of the cerebellar infarcts, will hold off on anticoagulation at this timeto prevent hemorrhagic transformation. Will defer to the day team on timing of reinitiation of anticoagulation. Rest of plan below. #1 Acute Ischemic Stroke, posterior circulation likely embolic source Workup: Neuroimaging - NCHCT (at OSH): revealed no acute intracranial abnormality - MRI Brain (at OSH): multiple late acute infarcts in the cerebellum and occipital lobes, subacute infarct to the left occipital lobe and subacute bilateral thalamic infarcts, which were noted on - Baseline ECG: normal sinus rhythm, unchanged from prior Stroke risk factor work up (labs from last admission, will not repeat): - HbA1c (01/31): 6.1% - Fasting lipid panel (02/01): total cholesterol 157, HDL 88, LDL 48, TGs 107 - TSH (01/31): 0.3 - Echocardiogram- ordered, PFO noted on DEVON in 2019 - Thrombophilia workup in 2019 significant for mildly decreased protein S (in the setting of active clotting); negative for protein C deficiency, prothrombin [id number] mutation, antiphospholipid antibodysyndrome, antithrombin 3 deficiency Management: - Neuro Checks per Unit protocol => stat noncontrast head CT for change in exam - Cardiac Monitoring for 24 hours - Monitor vitals per unit routine protocol - Blood Pressure: - Permit hypertension up to 220/110 for first 24 hours with PRN hydralazine 50 mg q6hr oral ordered - Antihypertensives: hold home antihypertensives - Blood Glucose - BG Goal: 140-180 - Hold oral DM meds and start moderate correction scale insulin if indicated based upon initial results - Antithrombotics: Hold home apixaban, defer reinitiation to day team - Statin: Atorvastatin 40 mg daily - Bedside swallow ordered- passed - Brain Rehab Team consulted, appreciate recs - SWS consulted for assistance with d/c planning, appreciate recs 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 status post C2-T3 Spine Fusion # Gastroesophageal reflux disease - Nicotine Patch - Continue home meds - Hold home furosemide for permission hypertension - Home diazepam and opioids held overnight to minimize confusion and dizziness - Acetaminophen 650 mg y1judum PRN Diet: NPO until bedside swallow done Tubes/lines: PIV VTE prophylaxis: therapeutic anticoagulation Code status: Prior Disposition: Home Please do not hesitate to page the Cerebrovascular Neurology Service pager at [phone] with any questions or concerns. [facility] Master Data Analyst: Dr. Karel Vega M.D. STROKE DOCUMENTATION: Stroke Center Measures: Did this patient have a possible stroke/TIA/hemorrhage?: Yes Type of stroke: Ischemic stroke/Transient ischemic attack Date of NIHSS completed: 02/10/2021 Time of NIHSS completed: 23:15 Admission NIHSS total score: 0 Date patient last known well: 02/09/2021 Time patient last known well: 23:00 Onset of symptoms - date: 02/10/2021 Onset of symptoms - time: 07:00 IV Alteplase candidate?: No Reason not a candidate: Symptom onset beyond time window Patient admitted solely for an elective carotid intervention: No Antithrombotic started on admission: Started on admission Dysphagia screen performed before oral intake or any p.o. medication given: Performed and patient passed, oral intake initiated Screen date completed: 02/11/2021 Screen time completed: 00:40 Prestroke modified Bandera Score (mRS): 4 - Moderately severe disability. Unable to attend to own bodily needs without assistance or unable to walk unassisted. Physical Medicine (PMR) consulted: Consulted and will evaluate the patient Speech therapy consulted to evaluate patient: Consulted and will evaluate the patient Pharmacologic VTE prophylaxis: not instituted because of contraindication Indicate contraindication for pharmacologic VTE prophylaxis: therapeutic anticoagulation. Tobacco use: Currently uses tobacco, smoking cessation consult will be performed Fasting lipids performed: Not necessary on this patient (Done 02/01/21) Patient on lipid-lowering agent prior to arrival?: Yes Relevant cerebrovascular risk factors: Hypertension, hyperlipidemia, tobacco use, diabetes mellitusand obesity (BMI 30 or greater) documented in this encounter Consult Notes Suhail Benjamin M.D., Ph.D. - 02/15/2021 11:54 AM CDT This is a supervisory note for Dr. Cote, please see her note for additional information. Mrs. Angie Mosquera is a 55-year-old female with a history of a right vertebral artery dissectionand associated posterior circulation ischemia as well as a complex psychiatric history who presents with recurrent infarcts. She has a complex history, however she initially presented with vertiginous symptoms in 2018 and was found to have a right vertebral artery dissection along the posterior arch of C1 as it enters the dura. An MRI was not obtained at that time as she had a spinal cord stimulator.She was treated with anticoagulation in follow-up imaging demonstrated evolution, though not resolution, of the dissection. Anticoagulation was eventually discontinued. She had no additional symptoms of ischemia until December of this year, which she again presented with vertigo and ataxia. An MRI of the brain demonstrated multiple posterior circulation infarctions involving pattern. A repeat CTA demonstrated near occlusion of the right extradural vertebral artery in the location of her prior dissection. Coumadin was restarted and the patient was subsequently discharged. She presented several weekslater with recurrent symptoms and new infarctions on a brain MRI. A repeat CT now demonstrated interval recanalization of the right vertebral artery. At that time, she was started on apixaban in addition to full dose aspirin. Once again, she developed recurrent ischemia despite this change in medication, which brings us to the present date. Review of her serial CTAs demonstrates a dissection of the right vertebral artery along the posterior arch of C1. This lesion has undergone evolution over time, and there now appears to be recanalization with a possible intimal flap. In summary, the patient presents with recurrent episodes of posterior circulation ischemia refractory to aggressive medical management in the setting of a right vertebral artery dissection. As the patient continues to have symptoms despite maximal medical therapy, she is a candidate for intervention; i deally, the dissection could be stented to preserve flow within the right vertebral artery. We have requested that the patient be loaded with Plavix this evening, in anticipation of possible intervention tomorrow. Her Lovenox can be discontinued for now. She should be NPO at midnight for angiography and possible intervention tomorrow morning. Please page [phone] with questions. I spent 15 minutes in consultation with the patient, >50% of this time was spent in counseling and coordination of care. All questions were answered, and the patient/family demonstrated agreement with the plan. Realistic expectations were provided. There were no barriers to our conversation. Jeannette Cote M.D. - 02/15/2021 9:41 AM CDTAssociated Order(s): IP CONSULT TO NEUROLOGICAL SURGERY Images from the original note were not included. REASON FOR CONSULT: Persistent right vertebral artery thrombus/occlusion, with recurrent posterior circulation strokes of differing ages despite anticoagulation HPI: Angie Mosquera is a 55 y.o. female from [place], [place] (see pertinent PMHx below) who presented as a direct admission to the Cerebrovascular Neurology Service on 02/10/21 with acute-onset vertigo, ataxia, left hand clumsiness/weakness, and decreased left hemibody sensation in the setting of known right vertebral artery dissection, with recurrent thrombus/occlusion resulting in multiple bilateral posterior circulation infarcts since 2019. She was previously on warfarin; however, this was discontinued six months after initiation due to resolution of thrombus on follow-up MRA and absence of further symptomatic events. In Arab[place] of this year, however, she developed new gait unsteadiness and recurrent episodes of vertigo, at which point CTA showed new cerebellar infarcts and recrudescence of the right vertebral artery thrombus/occlusion. She was subsequently restarted on warfarin, though she continued to have episodes of vertigo and ataxia, with MRI in January revealing posterior circulation infarcts of differing ages as well as partial recanalization of the right vertebral artery thrombus, slightly decreased high- grade stenosis at the V3/V4 junction, and increased flow in the distal V4 segment. Due to subtherapeutic INR on presentation at the OSH, she was transitioned from warfarin to apixaban. Regarding her current presentation, she awoke on the morning of 02/03 with vertigo, nausea, emesis, and gait unsteadiness, resulting in a fall during which she hit her head. She was taken to an outside ED where MRI showed multiple acute infarcts in the cerebellum and occipital lobes, a subacute infarct in the left occipital lobe, and subacute infarcts of bilateral thalami. She was then transferred to [facility] for further management. While admitted here, the primary team has opted to transition her anticoagulation back to warfarin, with an enoxaparin bridge. She has also been initiated on full-strength aspirin. Prior stroke workup includes: DEVON with PFO and no evidence of intracardiac thrombus; no history of cardiac arrhythmia andno evidence on 24-hour monitoring; lower extremity ultrasound negative for thrombus; negative thrombophilia work-up. Given her persistent symptoms and imaging evidence of recurrent posterior circulation strokes despite appropriate medical management, Neurosurgery was consulted for possible diagnostic cerebral angiogram and potential intervention. Relevant Past Medical History and Corresponding Medications: - Unruptured left paraclinoid ICA and supraclinoid ICA aneurysms - Significant and active tobacco use (approximately 40 pack-years) - HTN (on furosemide 40mg BID), HLD (on atorvastatin 80mg nightly), obesity (BMI >35) - Prior possible alcohol use disorder - Prior cervical spinal fusion (C3-T2) in 2018 - Prior gastric bypass surgery (1999) with laparoscopic redo (2006) - on esomeprazole 40mg BID FOCUSED NEUROLOGICAL EXAM: Gen: well-appearing; sitting up in chair eating breakfast Mental status: alert & oriented to self, location, date, and current context; conversational andengaged, with sustained attention. Follows simple commands and answers all questions without difficulty. CN: pupils small and reactive to light. Extraocular movements intact, though upgaze is mildly restricted; no gaze preference. Mild bilateral ptosis. Face symmetric. Ataxic dysarthria, with slowed and slurred speech. No evidence of aphasia. Tongue midline. Motor: antigravity in bilateral upper extremities without drift; mild satelliting of right arm around left arm. Strength symmetric and intact in bilateral lower extremities. Sensation: decreased sensation to light touch on left hemibody Coordination: dysmetria on [id number] testing (right > left). Finger tapping slowed bilaterally. GARCIA DIAGNOSTIC FINDINGS: Notable labs: Hgb 11.0, INR 1.1 ASSESSMENT & RECOMMENDATIONS: 55F - with numerous vascular risk factors, including significant history of tobacco use, with activesmoking, prior heavy alcohol use, hypertension, hyperlipidemia, obesity, and insulin resistance - presenting with acute onset vertigo, ataxia, and left hand clumsiness in the setting of known right vert ebral artery dissection, with resultant thrombus/occlusion that resorbed on previous warfarin therapy and recurred upon its discontinuation. Given her persistent symptoms and multiple posterior circulation infarcts of differing ages, we are concerned for distal emboli, which may have formed in the setting of the dissecting vertebral artery flap and possible retrograde flow. #Right vertebral artery dissection with recurrent thrombus/occlusion #Numerous posterior circulation infarcts of differing ages: bilateral cerebellum, bilateral thalami,left occipital lobe; secondary to above #Vertigo, ataxic dysarthria, gait imbalance, left hemibody sensory disturbance, left hand clumsiness; secondary to above - Will discuss with Neurosurgery and Neurointerventional Radiology staff regarding cerebral angiogram and possible intervention (right vertebral artery sacrifice vs. stent placement vs. alternative therapy) and communicate our final recommendations - After further discussion with Dr. Castillo and Dr. Land, will order for diagnostic cerebral angiogram, with possible vertebral artery stenting, for tomorrow - In anticipation of tomorrow, please load with clopidogrel (in addition to aspirin) today; discontinue enoxaparin; and make patient NPO at midnight Other Active Hospital Problems: #1 Cerebral 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 (HCC) #2 Chronic Pain Syndrome #3 Fibromyalgia #4 Gastric Bypass Status Post #5 Nicotine Dependence Cigarettes #6 Thrombosis Arterial (HCC) #7 Aneurysm Cerebral Unruptured (HCC) #8 Patent Foramen Ovale (HCC) #9 Stroke Cerebrovascular Accident Personal History #10 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 Thank you for requesting our input, recommendations, and services. We will continue to follow the clinical course of this patient while she is admitted. *This is a preliminary consult note; this plan of care has been discussed with the chief resident oncall, Dr. Suhail Benjamin, who is in agreement. Please look to his forthcoming supervisory note for additional information and confirmation of plan. For questions regarding this consult, please page [phone] any time before 6AM; after 6AM, please page Chief A service, [phone]. --- Jeannette Cote M.D. Spencer Carlos P.A.-C. - 02/13/2021 5:29 AM CDT SUBJECTIVE REASON FOR CONSULT Asked to evaluate Angie Mosquera who is a 55 y.o. female for complaints of *stroke like symptoms. HISTORY OF PRESENT ILLNESS / BACKGROUND Ms. Angie mosquera is a 55 year old female with a past medical history of multiple prior strokes, vertebral thrombus possibly 2/2 dissection, insulin resistance, hypertension, hyperlipidemia, cervical spinal fusion in 2018, and tobacco dependency who was admitted to the neurology service in the setting of new posterior strokes. On 02/13 patient had an acute change in her neuro exam with confusion, somnolence, and slurred speech. ENGRAVINGS POLISHER was called and patient was taken to the CT scanner for head CT. OBJECTIVE I have reviewed the current vital sign data as applicable. Please review the ENGRAVINGS POLISHER Narrator for details regarding this evaluation. PHYSICAL EXAM General: lying in bed, no acute distress, cooperative HEENT: Normocephalic, atraumatic. PERRL, EOMi. MMM. CV: RRR. Normal S1, S2. No gallops, clicks, rubs, murmurs. Lungs: CTA- bilaterally. No wheezes, rhonchi, rales. No increased work of breathing. On room air Abdomen: Normal bowel sounds. Soft, NTTP. No guarding, rebound, rigidity. Skin/extremities: Warm, dry, intact. Moves all extremities spontaneously. Pulses +2 in all four extremities. No lower extremity pitting edema. Neuro: A&Ox3. Increased hearing on R>L with more sensation on R>L. All other CN intact. Good finger to nose test. DIAGNOSTICS I have reviewed relevant laboratory, imaging, and other diagnostics as applicable to this consultation. ASSESSMENT / PLAN #1 Stroke (HCC) RECOMMENDATIONS On review of the CT scans it appears that Ms. Adams has stable appearance of her known posterior infarcts with no evidence of brain bleeding. She is hemodynamically stable and there is no interventionat this time. For these reasons patient will remain with the general neurology service. -recommend continuing frequent neuro checks -further care per neurology service. -feel free to contact ENGRAVINGS POLISHER service if patient has further neurologic changes or hemodynamic compromise. Critical care time 45 minutes. This is time spent at this critically ill patient's bedside actively involved in patient care as well as the coordination of care and discussions with the patient's family. This does not include any procedural time which has been billed separately. Shauna Rader M.S., C.T.T.S. - 02/12/2021 4:14 PM CDTAssociated Order(s): IP CONSULT TO INTERNAL MEDICINE NICOTINE DEPENDENCE OBJECTIVE Angie Mosquera and I spoke regarding her tobacco use. She recently had a consultation with Pamela and would like to use NRT while she is in the hospital. She stated that she is having urges and cravings. I contacted her primary service and recommended adding 21 mg nicotine patch and 4 mg gum, service agreed with recommendations. She plans to continuing using NRT once she is discharged (which she already has). Medications Patient reports that she is currently using Nicotine patch: 21 mg Nicotine gum: 4 mg: ASSESSMENT / PLAN #1 Tobacco Use Disorder Tejal Singleton M.S., O.T., [facility] - 02/12/2021 3:04 PM CDT Occupational Therapy Acute Hospital Inpatient Evaluation/Treatment SUBJECTIVE Referring/Attending Provider: Vidhi Vinson M.D. Patient's Name: Angie Mosquera Reason for Referral: OT evaluate and treat- Brain consult. Referring provider: Aleisha Vega MD Medical Diagnosis: 1. Stroke (HCC) 2. Deficit Cognitive Communication 3. Decline Functional Status 4. Debility Onset Date: 02/12/21 Payor: MEDICARE / Plan: MEDICARE A AND B / Product Type: Medicare / PERTINENT MEDICAL / SURGICAL HISTORY: Patient Active Problem List Diagnosis ??? Rhinosinusitis Chronic ??? Stroke (HCC) ??? Anxiety Generalized Disorder ??? Chronic [...] Sinus ??? Stroke Cerebrovascular Accident Personal History Past Surgical History: Procedure Laterality Date ??? [...] ROMB OR ??? SPINAL CORD STIMULATOR IMPLANT History of Present Illness: # Acute onset vertigo and found to have progressive multifocal areas of posterior circulation ischemia impacting bi-cerebellar hemispheres, right occipital lobe, and bi-thalamic areas. 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 Precautions Other Precautions: fall, memory, vertigo, long standing 5#lifting restriction cervical fusion & left arm (left shoulder redo, reverse shoulder [facility] : [facility] Pt thinks before [place] but notes state 2 months ago), history of chronic pain. Patient/Caregiver Goals: to return home with increased support and home PT. Prior Function/Occupational Profile Dominant Hand: Right Lives With: Alone Receives Help From: ladies attendant, Family(son Rafal lives across the street and can come anytime, casino games dealer once a week for 1 hour.) ADL Assistance: Independent IADL/Homemaking Assistance: Required assistance IADL/Homemaking Assistance Comments: Has assistance with meals on wheels, cleaning (1 hour once a week - pt feels she needs more), and medication management (pharmacy sets up meds for pt). due to covid, frequent hospitalizations, home PT not getting set up she hasn't done OP or home PT Driving: Independent Driving Comments: takes her cane and medical alert with her. Occupational Role: On disability Occupational Role Comments: Previously worked at a [employer] and [employer] Prior Mobility/Functional Transfers Level of [place]: Independent Previous Transfer/Mobility Assistance Comments: Patient reports that she was indpendent ambulating at home and in the community. Per PT/OT notes she has fallen - she states she hasn't. She states she sometimes uses the 4 wheeled walker, takes the cane with her outside. Home Living Type of Home: Apartment Home Layout: One level Home Access: Level entry Bathroom Shower/Tub: Tub/shower unit Tub/shower unit location: Main floor Bathroom Toilet: Standard Bathroom Accessibility: Yes How Accessible: Accessible via walker Home Equipment Gait Devices Owned: Four-wheeled walker, Cane Bathroom Equipment: None Fall Risk (65 and older) Fall in the last 12 months: Yes Did you have an injury with the fall?: Yes Are you fearful of falling?: No OBJECTIVE Pain: none reported Vitals: Cognition Attention: (distractible) Initiation: No difficulty with initiation Orientation: Oriented X4 Following Commands: Follows all commands/directions without difficulty Safety/Judgment: Impairments noted Insight/Awareness of Deficits: Mild Impulsivity: Mild Cognition Comments: see slums score Baseline Vision/Correction: Other (Comment)(she states she has reading glasses, tinted glasses for driving - has a darker pair and a siding installer pair. tinted due to glare of other car lights.) Current Vision Comments: she reports due to vertigo she can no longer focus to be able to read. can't text on her phone, unable to read breakfast menu, unable to read white board. Light Touch: No deficits Current Hearing Function: Hearing intact [facility] Mental Status Examination The [facility] Mental Status Examination (UMS) is a brief oral/written exam given to people that are suspected to have a cognitive disorder such as dementia or Alzheimer's Disease. Results from today's screening are indicative of dementia and further assessment is warranted . What day of the week is it?: 1 What is the year?: 1 What state are we in?: 1 How much did you spend/have left?: 1 Name as many animals as you can in 1 minute: 1 What are the 5 objects?: 0 Give me the series of numbers backward: 1 This is a clock face...: 0 Place an 'X' on the triangle/Which is largest?: 2 I am going to tell you a story...: 2 SLUMS Total Score: 10 Scoring guidelines: If high school education: 27-30: Normal 21-26: Mild neurocognitive disorder 1-20: Dementia If less than high school education: 25-30: Normal 20-24: Mild neurocognitive disorder 1-19: Dementia This public relations writer has recorded patient's performance in flowsheets via Measures-Tools tab. Patient/Family Education: na At the end of today's therapy session patient was left seated in bedside chair with an appropriate call light within reach. Patient's needs and questions addressed during today's session. Contact Monitoring: PPE used during therapy: Therapist was wearing the following PPE throughout entire session: surgicalmask, eye protection and gloves Patient was wearing a mask during therapy session: no Assessment Angie presents with impairments in cognition (attention, memory, problem solving) and safety awareness, as well as visual perceptual deficits, impaired balance, and decreased activity tolerance. Angie currently requires assistance of 1 and front wheeled walker during self cares and functional mobility. She will benefit from continued occupational therapy to progress safety and independence in self cares and functional mobility. Rehab Potential: Ms. Mosquera has good potential to achieve established occupational therapy goals within the time frame outlined below. Barriers to Discharge Home: Current functional status, Safety concerns Barriers to Discharge Comments: Mild balance instability with mobility Comorbid Conditions: Cerebrovascular accident, Mental health disorder Personal Factors: Living situation, Needs assistive device, Safety awareness, Other (Comment)(memory) Level of Care Recommended - OT: 24 hour supervision, Assistance with mobility, Assistance with self-cares, Assistance with medications, Assistance with meals, Assistance with financial aid advisor, Assistance with transportation Recommended Adaptive Equipment - OT: Shower chair without back, Transfer tub bench, Grab bar(s) in shower Functional Goals and Timeframes: OT Goal #1: Patient will be modified independent with toileting and toilet transfer by discharge OT Goal #2: Patient will complete dressing independently by discharge OT Goal #3: Patient will complete cognitive screening to determine level of supervision needed at dismissal Plan Patient agrees with the plan of care and goals. Treatment Plan: OT Frequency: 5 times per week OT Amount: 1 visit per day OT Inpatient Duration : Until goals are met or hospital discharge Plan: Plan of care initiated Treatment interventions may include: Treatment Interventions: Therapeutic exercise, Therapeutic functional activity, Neuromuscular re-education, Self-care/home management Occupational Profile and History review: Extensive Performance Deficits: 1 - 3 performance deficits Evaluation Complexity: Moderate Time Spent with Patient OT Evaluation (min): 20 min Home Management Training (min): 15 min Time Calculation Total Timed Units (min): 15 min Total Treatment Time (min): 35 min Tejal Singleton M.S., O.T., BCPR Sanchez Warren M.D., Ph.D. - 02/12/2021 10:16 AM CDTAssociated Order(s): IP CONSULT TO PHYSICAL MEDICINE & REHABILITATION SUBJECTIVE Reason for Consult Consults Reason for Consult: stroke History of Present Illness Ms. Angie Mosquera is a pleasant 55-year-old right-hand dominant woman with a complex past medical history which includes left shoulder and bilateral knee arthroplasties, gastric by-pass, recurrent sinus infections, occipital neuralgia, and cervical as well as lumbar fusions, fibromyalgia, nicotine dep endence and over the last year or two recurrent posterior circulation dyer. In fact, I saw her in early January 2019 and at that time she was living in the same apartment and had noted the onset of unsteadiness and feeling that the room was tilting. She was unable to maintain her balance without the assistance. MRI/MRA revealed bilateral small areas of restricted diffusion involving the cerebellar and occipital lobes. The etiology was presumed embolic and she was transferred to [place] for further evaluation prior to returning home. She apparently did well for appeared but was readmitted earlier this month (January 31, 2021) due to the acute onset of vertigo and was found to have no lower posterior circulation infarcts. She was initially started on warfarin but her INR was sub therapeutic and she was switched over to apixaban 5 mg twice a day prior to discharge. She apparently did well, but was readmitted earlier this month (January 31, 2021) again for the acute onset of vertigo. Imaging showed new posterior circulation strokes. She was begun on warfarin, but switched over to apixaban 5 mg twice a day due to subtherapeutic INR levels. Ms. Mosquera tells me she returned home. She said she did well, but 2 mornings ago (February 10) she awoke in her normal state of health but later in the morning had the abrupt onset of dizziness which she describes as spinning which is severe enough to prevent her from watching television. She also feels quite nauseous. She was taken to the [place] emergency department. Subsequent imaging (which I reviewed in [facility]) reveals an increased number of posterior circulation strokes as well as some stenosis of the vertebral arteries. She was transferred to [place]. Subsequently, her course has beenquiet, but she continues to complain of spinning, as well as blurred vision to the right. At the time of my visit, she is reclining in bed, alert, interactive, but proved to be a somewhat tangential and distracted historian. Past Medical History: Diagnosis Date ??? Anemia hx iron infusions ??? Anxiety Generalized Disorder ??? Arthritis ??? Asthma NOS ??? Cardiac Disease ??? Chronic Pain Syndrome ??? Complication Anesthesia Initial ??? Fibromyalgia ??? Gastroesophageal Reflux Disease NOS ??? Migraine Headache ??? Pain Back ??? Post Operative Nausea/Vomiting ??? Stroke ([facility]) 03/2019 ??? Transient Ischemic Attack Cervical and lumbar spine surgeries. Bariatric surgery. Cholecystectomy. Hysterectomy. Carpal tunnel syndrome. Left shoulder and bilateral knee arthroplasties. Anxiety. Fibromyalgia. Chronic back pain. REVIEW OF SYSTEMS HEENT: Ms. Mosquera describes an 8 posterior headache. She denies any changes in her swallowing but notes she cannot watch TV due to her vertigo. Cardiovascular/Respiratory: No complaints. Extremities: She is somewhat vague. Does note her bilateral TKAs which she feels are working well. She also makes periodic reference to her left shoulder and the fact that limb feels somewhat weaker since this hospitalization. Spine: Ms. Mosquera states her back and neck pain are doing quite well at the present time. She refers to previous cervical spine surgeries. She also notes that she has a pump for low back pain which works quite well, even when the batteries are low. GI: No concerns. : Wears a pad but no concerns of acute changing. Neurological: Ms. Mosquera feels her cognition is baseline level. She is somewhat vague but, as notedabove, notes blurring in her right field of vision, feeling nauseous, decreased coordination, and questionable weakness. Sensation appears to be intact. She notes a number of falls most recently but denies any prior to her recent episodes. SOCIAL HISTORY Ms. Mosquera lives alone in an apartment in [place] for 5 or 6 years. She appears to have good support from 2 sons in the nearby area. She states the older son buys her groceries, etc. Previously, she had a friend whom she does not mention at the present time. OBJECTIVE Temperature: [36.3 ??C-36.6 ??C] 36.4 ??C Heart Rate: [74-87] 82 Resp Rate: [15-16] 15 Blood Pressure: (104-125)/(60-71) 119/71 SpO2: [93 %-98 %] 98 % Physical Exam General: pleasant, tangential and easily distracted woman heavily tattooed with numerous piercings facial peer with, HEENT: Normocephalic, without trauma. Facies is symmetric. Extremities: Upper extremities symmetric with full, active, functional range of motion. Left shoulder is moved in a somewhat guarded way with complaints of pain. Lower extremities are symmetric, obese with full active functional range of motion. Skin: as noted above: Multiple and extensive tattoos on body, limbs, and face. I see no signs of erythema, warmth, or skin breakdown of the exposed distal limbs. Neurologic: General: Pleasant, alert, interactive, tangential and easily distracted. Mental status: Ms. Mosquera is conversant with her hospital course. I performed a formal [facility] mental status examination and obtained the following scores are orientation 7/8, information 1/4, learning4/4, mathematics 1/4, abstraction 1/3, recall 1/4, construction is 0/4 (unclear role of vision totalscore 22/38. Speech intact. Language was intact: She was able to repeat short phrases, name an object and its components, and follow a 3 step cross the midline command. Muscle bulk: Upper and lower extremities 0/0 (to extent assessable). Muscle tone: Upper and lower extremities 0/0. Coordination: [id number] was 0/0. finger opposition was slowed on the left satellite maneuver revealed the right hand revolved around the left.. Cranial nerves II through XII: Very difficult examination due to what appeared to be inconsistent cooperation. Extraocular movements were probably intact intact. Visual jhaveri very inconsistent in sometimes not responding but did complaint of ???blurry?? on the right. Smile symmetric. Tongue was midline. Appreciation of light touch in face was symmetric. Muscle strength: limited effort. Upper extremities 0-1/0 -1, lower extremities again limited effortsbut appeared to be symmetric Sensation: Light touch 0/???75%.?? Double simultaneous tactile stimulation 0/0. Gait/Station/Balance: I did not get her up as physical therapy had completed initial evaluation earlier this morning. She required assistance of 1 walking with a front wheel walker. Diagnostics I reviewed the imaging studies and agree with the interpretation as recorded. I reviewed the pertinent laboratory and diagnostic data. ASSESSMENT / PLAN #1 Stroke (HCC) #2. Multiple posterior circulation infarcts #3. Questionable compliance with medications #4. Depressed [place] mental status examination scores in the low 20s which are stable or slightly worse than 2019 score #5. Questionable impaired right visual field #6. New, since 2019, findings of decreased left-sided sensation. #7. Ataxia #8. Multifactorial gait disorder Ms. Mosquera is a pleasant but tangential 55-year-old right hand dominant woman with multiple medicalcerebral/cardiovascular risk factors, who had a series or recurrent posterior circulation infarcts. Her examination today is quite stable to that of 2019, with the exception of complaints of right sided visual blurring, decreased appreciation of light touch on the left, and a [place] score minimally lower than that of 2 years ago. Her compliance with the examination was variable and these findings may be a result of that. I do not fully remember my interaction with her two years ago (although I do remember her), but she may be more distractable and tangential than she was at that time. We have already begun an off the floor therapy program and will progress as possible. Disposition will be an issue if she remains noncompliant with recommendations. If it has not already been done, I would recommend that [place] [facility] get involved earlier rather than later during her stay. Usha Blount R.N. - 02/12/2021 9:29 AM CDTAssociated Order(s): IP CONSULT TO CARE MANAGEMENT; IP CONSULT TO CARE MANAGEMENT Discharge Planning Assessment SUBJECTIVE Referral Data Referral Source: Early Screen for Discharge Planning Referral Reason: Advanced Directives, Discharge Planning Discharge Planning: Early screen discharge Who was present during the interview?: Patient Slide Developer Services Used: No Patient Information Primary Caregiver: Self Diet/Texture: By mouth Legal Information Legal Decision Maker: Self Advance Directives: Advanced Care Plan Advance Directives Status: Information given Caregiver Information Caregiver Name: Self Services Requested Discharge Potential: Home with Home Health services Home Health: retirement Level of Care: Skilled OBJECTIVE Functional Status (ADLs) Functional Status: Minimum assistance Assistive Devices: Walker, Cane, Shower chair, Eyeglasses, Hearing aids Dressing: Independent Feeding: Independent Bathing: Independent Grooming: Independent Toileting: Independent Transfer to/from Bed, Chair Etc.: Independent Mobility: Independent Meal Prep: Independent Medication Setup/Administration: Independent Telephone Use: Independent Housekeeping: Independent Shopping: Independent Managing Finances: Independent Behavior: Oriented Communication: Talks, Understands speaking, Understands Malaysian Environmental Supports Home Environment: Apartment Anticipated Modifications to the Patient's Home: None Anticipated Needs/Assistive Devices ADL Anticipated Needs: Transportation Use (drive car, use taxi/bus), Housekeeping Transportation Needs: Independent to drive, Support from family Finance/Insurance Primary insurance: MEDICARE A AND B Secondary insurance: MEDICA Does the Patient have any Financial Concerns?: No Income Source: Disability (Comment) Income/Expense Information: Income meets expenses Discharge Planning Barriers To Discharge: Ability to acquire knowledge Strengths: Support of immediate family, Home design Type of Residence: Private residence Support Systems: Children Home Care Services: Yes Type of Home Care Services: Nurse visit Anticipated Discharge Dest[place] [facility] [place]charge Services: Physical Therapy, Nursing, Primary Care Physician Follow-up Does the patient need discharge transport arranged?: No ASSESSMENT / PLAN Assessment: The advanced analytics associate met with Angie Mosquera to discuss her current hospitalization and home goingneeds. The patient was unaccompanied. The patient was a generally reliable historian, but occasionally seems to forget details. The role of advanced analytics associate was reviewed. The patient reviewed her prior level of care and support system. The patient receives support from her son. The patient described her living environment as a apartment without elevator access with level entry. Housekeeping, grocery shopping, meal prep, and other household responsibilities have previously been completed by patient and [employer] ADVOCATE CLERK/SPECIALIST services that assist with housekeeping. advanced analytics associate discussed the patient's potential needs at dismissal based on their home setting, previous needs and responsibilities, homebound status, and relevant assessments with the patient. The patient will be safe and supported to return home with family when medically ready. Support will be provided by her son Rafal Mosqeura. The patient demonstrated understanding when discussing her home going plans and anticipated needs. senior business development manager met with patient to discuss discharge planning needs. The patient described her home asa main level apartment with a level entry. Patient states that she is independent in all self cares but does use a walker or can for mobility. She does describe lots of falls in her home that she feelsis related to her wheeled walker and she feels that she would do better with a walker without wheels. Patient stated that she has VI[employer] ADVOCATE CLERK/SPECIALIST services in the home that assist with cleaning her home and also standby while she showers in case of falls. She also has a halfway visit once per week and stated that she would like this increased in frequency if possible. Patient describes a strong support sys tem with her children, and feels safe to return home with her son, once medically stable. At this time, the care team anticipates the patient requires the following service(s) to be reconnected: home healthcare. The patient identified the following as their current vendor(s): [facility]. After reviewing the patient's chart and meeting with the patient, the advanced analytics associate deemed the LACE+/readmission questions were appropriate. The patient explained that her current admission was due to recurrent strokes.The patient stated that she had no difficulty obtaining, understanding, or using her medications as directed. The patient reports no other concerns regarding her medications. A primary care provider has been identified; The patient has not been having difficulty making or attending appointments with his PCP. The patient stated her current admission could not have been prevented. The advanced analytics associate will share this information with the care team. The patient reports understanding that she will dismiss from the hospital when medically stable. Pending hospital course and medical readiness, no barriers to dismissal have been identified at this time. Plan: The patient agrees with the following plan. 1. Patient's anticipated discharge disposition is: Home with Home Healthcare Planning needs to be initiated. 2. Transportation upon dismissal will be provided by family--Rafal Mosquera. 3. advanced analytics associate recommended a shower seat and reaching out to family, friends, and neighbors for assistance. 4. advanced analytics associate provided information regarding the dismissal process and the Advance Health CarePlanning: Making Your Wishes Known [id number] booklet along with education on the benefits of completing an advance directive and resources that may assist them in this process. The patient shared no further questions or concerns regarding advance directives. The patient appears to have an understanding of how to complete an advance directive and reported awareness of resources to assist them. 5. advanced analytics associate placed or requested the following hospital-based consult orders and/or referrals:None. 6. advanced analytics associate will continue to assess for homegoing needs with the interdisciplinary team. 7. advanced analytics associate encouraged the patient to reach out with any questions/concerns. Please find transition plan below.\ Patient to discharge with home health care. Home Medical Care - Admitted Since 02/10/2021 Service Provider Selected Services Address Phone Fax Patient Preferred [facility] [address] [phone] -- Contact: Intake NURSING: - Complete documentation in the Discharge Navigator including Nursing Report Info and Facility/NextLevel of Care Info - Call report and arrange for the patient???s first visit. - Send required packet of dismissal information with patient, including After Visit Summary and advance directive. - [facility] requests that After Visit Summary be faxed directly to them upon dismissal, as patient lost it after last discharge. PRIMARY SERVICE: - Please provide an order for resumption of previous services by home health care on the After VisitSummary. If additional services are needed, please provide order. - Communicate with the patient???s local primary care provider by telephone for writing of home care orders. This needs to be done to help prevent discharge delays. A copy of the After Visit Summary needs to be sent there as well. CASE MANAGEMENT: -Reviewed patient's insurance coverage for the services noted above. The patient appear(s) to have an understanding of this. -Will continue to follow and assist if needs arise. Signed by: Usha Blount R.N. 02/12/2021 Irene Esteban, P.T. - 02/12/2021 8:00 AM CDT Physical Therapy Acute Hospital Inpatient Evaluation/Treatment SUBJECTIVE Referring/Attending Provider: Vidhi Vinson M.D. Patient's Name: Angie Mosquera Reason for Referral: PT evaluate and treat- Brain consult. Referring provider: Aleisha Vega MD Medical Diagnosis: 1. Stroke (HCC) 2. Deficit Cognitive Communication 3. Decline Functional Status Onset Date: 02/12/21 Payor: MEDICARE / Plan: MEDICARE A AND B / Product Type: Medicare / PERTINENT MEDICAL / SURGICAL HISTORY: Patient Active Problem List Diagnosis ??? Rhinosinusitis Chronic ??? Stroke (HCC) ??? Anxiety Generalized Disorder ??? Chronic [...] Sinus ??? Stroke Cerebrovascular Accident Personal History Past Surgical History: Procedure Laterality Date ??? [...] ROMB OR ??? SPINAL CORD STIMULATOR IMPLANT History of Present Illness: # Acute onset vertigo and found to have progressive multifocal areas of posterior circulation ischemia impacting bi-cerebellar hemispheres, right occipital lobe, and bi-thalamic areas. 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 Precautions Other Precautions: fall, memory, vertigo, long standing 5#lifting restriction cervical fusion & left arm (left shoulder redo, [facility] Pt thinks before [place] but notes state 2 months ago), history of chronic pain. Patient/Caregiver Goals: to return home with increased support and home PT. Patient Comments: She states the vertigo is bad this time. and not getting better as quickly. She reports she is supposed to get Meclizine (taking prior to admit) 4 times a day scheduled. hasn't had yet today. Prior Function/Occupational Profile Dominant Hand: Right Lives With: Alone Receives Help From: ladies attendant, Family(son Rafal lives across the street and can come anytime, casino games dealer once a week for 1 hour.) ADL Assistance: Independent IADL/Homemaking Assistance: Required assistance IADL/Homemaking Assistance Comments: Has assistance with meals on wheels, cleaning (1 hour once a week - pt feels she needs more), and medication management (pharmacy sets up meds for pt). due to covid, frequent hospitalizations, home PT not getting set up she hasn't done OP or home PT Driving: Independent Driving Comments: takes her cane and medical alert with her. Occupational Role: On disability Occupational Role Comments: Previously worked at [employer] and [employer] Prior Mobility/Functional Transfers Level of [place]: Independent Previous Transfer/Mobility Assistance Comments: Patient reports that she was indpendent ambulating at home and in the community. Per PT/OT notes she has fallen - she states she hasn't. She states she sometimes uses the 4 wheeled walker, takes the cane with her outside. Home Living Type of Home: Apartment Home Layout: One level Home Access: Level entry Bathroom Shower/Tub: Tub/shower unit Tub/shower unit location: Main floor Bathroom Toilet: Standard Bathroom Accessibility: Yes How Accessible: Accessible via walker Home Equipment Gait Devices Owned: Four-wheeled walker, Cane Bathroom Equipment: None Fall Risk (65 and older) Fall in the last 12 months: Yes Did you have an injury with the fall?: Yes Are you fearful of falling?: No Fall Risk Comments: Per prior OT note: Patient is at risk for falls secondary to left knee instability during mobility. patient today denies falls OBJECTIVE Pain: has chronic pain as well. Uses left heating pad on left shoulder, cervical neck paintoday Vitals: stable on room air Cognition Attention: (distractible) Initiation: No difficulty with initiation Orientation: Oriented X4 Following Commands: Follows all commands/directions without difficulty Safety/Judgment: Impairments noted Insight/Awareness of Deficits: Mild Impulsivity: Mild Cognition Comments: appears forgetful, poor historian as far as recent evens (shoulder surgery), notanswering questions directly at times. Current Hearing Function: Hearing intact Baseline Vision/Correction: Other (Comment)(she states she has reading glasses, tinted glasses for driving - has a darker pair and a siding installer pair. tinted due to glare of other car lights.) Current Vision Comments: she reports due to vertigo she can no longer focus to be able to read. can't text on her phone, unable to read breakfast menu, unable to read white board. Light Touch: No deficits Coordination Overall Coordination: Movements are fluid and coordinated ROM - Upper Extremity Screen: Impaired left ROM - Upper Extremity Screen Comments: had a left shoulder replacement in 2019. she states before 2019 she had a reversal/replacement. notes state 2 months ago. active to 80 elevation, 70 abduction. active assisted about 10 degrees more. ROM - Lower Extremity Screen: Addressed, no concerns noted Strength - Upper Extremity Screen: Impaired left Strength - Upper Extremity Screen Comments: left shoulder weakness and left hand weakness Strength - Lower Extremity Screen: Addressed, no concerns noted Static Sitting-Balance: Good (Maintains balance without support) Static Standing-Balance: Fair (Maintains balance with handheld/contact guard assistance) Bed Mobility - Supine to Sit # of Assistants: 1 Level of Assistance: Modified Independent Device: Bed rail Comments: moves quickly. Sit to Stand Transfers # of Assistants: 1 Transfer Surface: Bed Transfer Equipment: Front wheeled walker Level of Assistance: Modified Independent Comments: she stood easily. walker gave good stability. Stand to Sit Transfers # of Assistants: 1 Transfer Surface: Chair Transfer Equipment: Front wheeled walker Level of Assistance: Modified independent Gait Assessment/Training Distance (m): 3 m Surface: Even Device: Gait belt, Front-wheeled walker # of Assistants: 1 Level of Assistance: Contact guard assistance Quality/Pattern: Ataxic Stability: minimal instability Assessment of Gait: reliant on front wheeled walker for stability. Training/Intervention: right now front wheeled walker gave good stability. she reports sometimes thefour-wheeled walker gets away from her at home. Response: advised ongoing use of front wheeled walker currently. Seated Exercise - Side Addressed: Bilateral Seated Exercise: Ankle pumps, Marching, Long arc quads Seated Exercise 1: left UE exercises - active range of motion in painfree range anti gravity, below shoulder level, wrist and elbow At the end of today's therapy session patient was left seated in bedside chair with an appropriate call light within reach. Patient's needs and questions addressed during today's session. Contact monitoring: PPE used during therapy: Therapist was wearing the following PPE throughout entire session: surgicalmask, eye protection and gloves Assessment Ms Mosquera was admitted with acute episode of vertigo. In late November, she had recurrent symptoms, and on January 31 she was again hospitalized with a subtherapeutic INR and evidence for multifocal areas of restricted diffusion in bilateral cerebral hemispheres, cerebellar vermis, right thalamus, and bilateral occipital lobes representing acute, subacute, and chronic infarctions. 02/10/2021, she developed recurrent vertiginous dizziness and unsteadiness without nystagmus noted. MR imaging demonstrated progressive multifocal areas of posterior circulation ischemia impacting bi-cerebellar hemispheres,right occipital lobe, and bi-thalamic areas. She is currently dizzy and unsteady on her feet. Exhibits poor memory. Unable to read or focus on upclose items. Up with Aof1 and front wheeled walker. She declines any sort of inpatient rehab. Wants to return home with increased services and home PT. Patient should not be driving if dizzy/experiencing vertigo or taking narcotic medication. Had a recent (unclear of exact date) of left shoulder surgery which needs ongoing PT. Add: patient has home health through [facility] which does not have home PT. Pt does not want to change home health agency and updated SW she will do OP PT. Patient does want a front wheeled walker issued for home - MD will put through script and have it ordered. Updated pt that she will need to set up own OP PT. Rehab Potential: Ms. Mosquera has Fair potential to achieve established physical therapy goals withinthe time frame outlined below. Barriers to a safe discharge home: Barriers to Discharge Home: Current functional status, Safety concerns Barriers to Discharge Comments: Mild balance instability with mobility Comorbid Conditions: Cerebrovascular accident, Mental health disorder Personal Factors: Living situation, Needs assistive device, Safety awareness, Other (Comment)(memory) Discharge Therapy Needs - PT: Home health therapy recommended Level of Care Recommended - PT: Intermittent supervision, Physical assistance needed, Assistance with transportation, Cognitive assistance needed Equipment Recommended - PT: Front-wheeled walker Functional Goals and Timeframes: PT Goal #1: Patient will be independent with transfers using least restrictive device to facilitate a safe dc. PT Goal #1 Date: 02/19/21 PT Goal #1 Status: Progressing PT Goal #2: Patient will ambulate with least restrictive device 75 meters independently to faciliatea safe dc home. PT Goal #2 Date: 02/19/21 Progress: Progressing toward goals Plan Patient agrees with the plan of care and goals. Treatment Plan: PT Frequency: 5 times per week PT Amount: 1 visit per day PT Inpatient Duration : Until goals are met or hospital discharge Plan: Continue with current plan PT Plan Comments: < 6 month old left reversed total shoulder: range of motion as tolerated per pt, continue to mobilize, ongoing safety awareness. Treatment interventions may include: Treatment/Interventions: Therapeutic exercise, Therapeutic functional activity, Neuromuscular re-education, Gait training Clinical Presentation: Evolving Number of Examination elements: 3 Clinical Decision Making: Moderate complexity clinical decision making Time Spent with Patient PT Evaluation (min): 30 min Therapeutic Activity (min): 25 min Total Timed Units (min): 25 min Total Treatment Time (min): 55 min Irene Esteban P.T. Kaykay Hogan, Ph.D. - 02/11/2021 2:30 PM CDT Speech Language Pathology Evaluation - Acute Care Session Type: Evaluation Referred By: T Neurology Stroke and Cerebrovascular Disease SUBJECTIVE History: Ms. Angie Mosquera is a 55-year-old woman who was admitted to [facility] on 02/10/2021 due to an acute onset of vertigo. Neuroimaging revealed multiple posterior circulation strokes and increased narrowing of the right vertebral artery. Past medical history includes chronic pain syndrome, anxiety, fibromyalgia, tobacco use history, chronic rhinosinusitis, and esophageal motility disorder. For further information detailing her medical history, please refer to the H&P note by Dr. Clemente Aiken dated 02/11/2021. Speech Pathology consult was received for an evaluation of communication and cognition. Ms. Mosquera was sitting comfortably in her hospital bed and was just finishing a meal. No family members were present during today's evaluation to provide collateral history. Ms. Mosquera reported that over the pastfew months, her son has often told her that her speech sounds slurred. She described that changes in her speech are most notable when she becomes confused or ill, but her speech problem typically resolves within a few days. She indicated that other people notice her speech slurring more than she does. She is also required to repeat herself more frequently. Today she rated her speech as 7 out of 10 (10 being the best) and based this rating largely on what others have told her. Ms. Mosquera described her voice as sounding better than usual today, and she attributed allergies and cigarette smoking to the sound of her voice. Of note, she reported having a prior surgery to her neck several years agothat affected her voice as well as swallowing, but these symptoms have since resolved. In addition, Ms. Mosquera endorsed changes in her cognition that are not normal for her. Specifically, she described feeling foggy and that her thoughts have been wandering. For example, she described that it is challenging to remember phone numbers and passwords. General: Family/Caregiver Present: No Arousal/Alertness: Delayed responses to stimuli Current Vision: Other (Comment)(Patient reported she wears reading glasses, but did not have them with her today) Hearing: Impaired Hearing Exceptions: Other (Comment)(Patient has bilateral hearing aids, but was not wearing them today. Hearing was adequate for today's evaluation in a quiet room) Behavior: Cooperative, Alert Pain Pain Score: 10 - Worst possible pain OBJECTIVE Oral Motor Facial Symmetry: (0) Within Normal Limits Labial Structure and Function: Within Normal Limits (WNL) Lingual Structure and Function: Within Normal Limits (WNL) Laryngeal Function: Within Normal Limits (WNL) Motor Speech Voice: Impaired Pitch (low/high): (-1) Mild(Patient spoke in low pitch with intermittent glottal chew) Hoarseness: (1) Mild Respiration: Within Functional Limits (WFL)(Patient tended to use frequent breath groups during speech) Resonance (PROCUREMENT MANAGER Function): Within Normal Limits (WNL) Articulation: Within Normal Limits (WNL) Rate and Prosody: Within Normal Limits (WNL) Vowel Prolongation: Within Normal Limits (WNL)(Maximum sustained vowel was 10 seconds) Speech AMRs: Within Normal Limits Speech SMRs: Mild, Slow Intelligibility: Intelligible Auditory Comprehension Commands: Within Normal Limits (WNL)(Patient followed multi-step commands with 80% accuracy. She occasionally repeated the command before responding) Conversation Comprehension: Within Normal Limits (WNL) Effective Techniques: Extra processing time, Reduced distractions Verbal Expression Primary Mode of Expression: Verbal Primary Language: Malaysian Repetition: Impaired Sentence Repetition: 41-60% accuracy(Patient often omitted elements of longer sentences) Conversation: Impaired Impaired Conversation: Moderate(Patient struggled with inhibiting intrusive thoughts and frequently spoke off topic. She required clinician prompts to redirect to the topic) Verbal Communication Comments: (Narrative Picture Description: Patient described a Fernando Armendariz picture with no evidence of aphasia. She required extra processing time to use clues from the picture to make inferences. With extra time, she made appropriate inferences) Cognition Overall Cognitive Status: Impaired Arousal/Alertness: Delayed responses to stimuli Memory: Impaired Short-term Memory: Moderate(3-word memory task: 3/3 words for immediate recall; 0/3 words for delayed recall; and 3/3 words for recognition recall) Working Memory: Mild(Patient accurately recited months of the year in reverse chronological order. However, her responses were delayed and she noted this delay is a change for her) Orientation: Oriented X4 Cognition Comments: (Proverbs: Impaired(Patient struggled to interpret figurative language)) Assessment Ms. Mosquera exhibits a non-aphasic cognitive communication disorder of moderate severity that is characterized by evidence of short-term and working memory impairment, difficulty with higher-order language formulation, and impaired pragmatics (tangential expression, difficulty inhibiting intrusive thoughts during a conversation). During a picture description task, her verbal output lacked inferences.She required extended processing time before responding to more complicated verbal tasks. However, there was no evidence of aphasia, as her speech was free of agrammatism, neologisms, paraphasias, and anomia. Ms. Mosquera described that she tried to recall words during a memory task today by providing a personal connection to the word (e.g., relating it to a memory of a family member). Ms. Medinas speech was judged to fall grossly within normal limits. Her voice was characterized bynonspecific hoarseness, low pitch, and intermittent glottal chew. It is possible that these voice features could be attributed to her history of tobacco use. Her speech was judged to be 100% intelligible in ideal listening conditions. When Ms. Mosquera intentionally slowed her rate of speech, this improved overall clarity. During today's evaluation, intermittent imprecise articulation was appreciated that seemed to be attributed to overall low physiologic effort and reduced motivation. The physiologicoral motor examination was unremarkable. Based on these findings, there is low suspicion of a neuroge saul motor speech disorder. Ms. Mosquera is a good candidate for ongoing speech therapy services to target cognitive strategies to assist her in the home environment. Specifically, she may benefit from the use of memory aids, visuals, and strategies to recall information. Contact Monitoring: Clinician was wearing the following PPE for the duration of today's session(s): surgical mask and eye protection Diagnosis: #1: Non-Aphasic Cognitive Communication Disorder, moderate Plan Ms. Mosquera would benefit from initiating speech therapy services at the bedside. Discharge Location: Unknown [employer]PER[employer] Ongoing Services: Ongoing formal Speech Pathology services Rehab Potential: Good Associated attestation - Jerica Mayorga, Ph.D. - 02/11/2021 5:07 PM CDT I did not personally examine the patient. However, I reviewed the medical record and staffed the patient with Dr. Hogan, both prior to and following the evaluation. I also reviewed her consultationreport and concur with her documented findings and recommendations. documented in this encounter Nursing Notes Dandy Cabrales R.N. - 02/17/2021 6:12 PM CDT Pt discharged at 1815. AVS and education reviewed at bedside and understanding expressed. PIV removed and angio sites assessed and bandaged per pt request. Neuros and vital signs stable upon discharge.All belongings, included confiscated items, sent with pt at discharge. Home health services contacted by this RN with two voicemails being left updating about discharge arrangements and leaving call back number. AVS faxed to home health service per case management request. Service at bedside to educate pt prior to discharge. Prescriptions sent to home pharmacy in [place]. Pt escorted by transport services to awaiting family vehicle. Electronically signed by: Dandy Cabrales R.N. 02/17/21 6:17 PM CDT Brandie Sheehan R.N. - 02/17/2021 5:27 PM CDT Shift Goals: Clinical Goals for the Shift: pt will cooprate with cares throughout shift Identify possible barriers to meeting goals/advancing plan of care: None End of Shift Summary: Goal was met. Pt was cooperative with cares and was discharged to home during shift. Belongings were packed up, IV removed, and VS stable. AVS was printed and education was completed with no further questions from pt. AVS was also faxed to [facility] for [facility]. RNs called home health service and left message x2 for discharge planning/service set up. Transportation was provided by family. Problem: PAIN - ADULT Goal: PT VERBALIZES/DEMONSTRATES [...] remain intact Outcome: Adequate for Discharge Problem: SAFETY ADULT Goal: Maintain a safe environment Outcome: Adequate for Discharge Problem: DISCHARGE PLANNING Goal: Patient discharge needs identified Outcome: Adequate for Discharge Problem: SAFETY ADULT - RISK FOR FALL AND OR FALL INJURY Goal: Patient remains free from fall/fall injury Outcome: Adequate for Discharge Problem: POTENTIAL OR ACTUAL PRESSURE INJURY-ADULT Goal: Manage sensory Perception deficits to maintain and/or improve skin integrity Outcome: Adequate for Discharge Goal: Maintain optimal skin moisture to ensure or improve skin integrity Outcome: Adequate for Discharge Goal: Achieve optimal activity and/or mobility to maintain or improve skin integrity Outcome: Adequate for Discharge Goal: Nutrient intake appropriate for improving, restoring or maintaining skin integrity Outcome: Adequate for Discharge Goal: Minimize friction and/or shear to maintain or improve skin integrity Outcome: Adequate for Discharge Problem: Compromised Skin Integrity Goal: Skin/Tissue integrity maintained or improved Outcome: Adequate for Discharge Goal: Oral and Nasal mucous membranes remain intact Outcome: Adequate for Discharge Goal: Incisions, wounds, or drain sites healing without S/S of infection Outcome: Adequate for Discharge Problem: Incontinence and/or Moisture Goal: Skin integrity is maintained or improved Outcome: Adequate for Discharge Electronically signed by: Lila Sheehan R.N. 02/17/21 5:33 PM CDT Sukhdeep Simms R.N. - 02/17/2021 2:03 PM CDT Shift Goals: Clinical Goals for the Shift: Patient will remain safe and free from falls throughout shift Identify possible barriers to meeting goals/advancing plan of care: None End of Shift Summary: Goal met. Patient remained safe and free from falls throughout shift. Problem: SAFETY ADULT Goal: Maintain a safe environment Outcome: Progressing Electronically signed by: Sukhdeep Simms R.N. 02/17/21 2:04 PM CDT Karma Cervantes R.N. - 02/17/2021 6:01 AM CDT Shift Goals: Clinical Goals for the Shift: Pt. will sleep >5 hours. Pt. will remain cooperative. Identify possible barriers to meeting goals/advancing plan of care: Pain, restlessness, uncooperative End of Shift Summary: Goal not met. Patient slept less than two hours total. Patient had nausea and vomiting episode managing by PRN medications. Reported 10/10 chronic pain managing my with rest and medications. At times patient was uncooperative/irritable with cares. R fem site dressing changed three times throughout shift. Sx notified. No further concerns noted at this time. Electronically signed by: Verna Cervantes R.N. 02/17/21 6:08 AM CDT Judy Rock R.N. -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 vomiting. She tried to walk to the bathroom and fell hitting her head on the wall. She was notable to crawl to a phone for help. A family member came home (after noon based on the [facility] records) and called an ambulance who took her to [facility]. ?? In the emergency department at [facility], her [place] stroke score was 0. Head CT unremarkable. MRI showed multiple new acute infarcts in the cerebellum. MRA redemonstrated R vertebral thrombus. DEVON was performed which showed no intracardiac thrombus. 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 An Apixaban Anti-Xa level was drawn and was 16. It was initially thought that it was lower than whatwould be expected if she had been taking it. However, this was drawn at least 36 hours after her last dose, as she did not take it on the morning of her stroke. Her pills were counted and she had 43/60in her bottle. She should have had 14 doses since the apixaban was prescribed and 17 pills were missing. She endorses using a pill box at home, which may account for the 3 additional pills missing. In summary, it seems that she is compliant with her apixaban and may have had a failure of DOAC therapy.Neurosurgery was consulted for angiogram with possible intervention. She underwent angiogram on 02/16with successful vertebral artery embolization. She had some slow oozing from the femoral access sitewith no evidence of hematoma formation. She was placed on a heparin drip after intervention for 24 hours. Plan to remain on aspirin 325 mg without anticoagulation due to fall risk with no clear benefitin the setting of vertebral artery embolization. She has remained neurologically stable. She was evaluated by PT and OT recommended continued therapy in the post acute setting given her history of falls at home however she declined placement. She was discharged on 02/17/21 with her existinghome and referral for outpatient PT. documented in this encounter Plan of Treatment Scheduled Referrals Name Type Priority Associated Diagnoses Order S pomerene hospitaldule External referral Outpatient Referral Routine Stroke (HCC) Ord ered: PT (non-[place]) 02/12/2021 documented as of this encounter Procedures Procedure Name Priority Date/Time Associated Comments Diagnosis CT HEAD WITHOUT IV RAD - Routine 02/17/2021 Results for CONTRAST (most inpatients 11:26 AM CDT this proced ure and all are in the outpatients) results section. CT HEAD NECK ANGIOGRAM RAD - Routine 02/17/2021 Resu lts for WITH IV CONTRAST (most inpatients 11:26 AM CDT this pr ocedure and all are in the outpatients) results section. ACTIVATED PARTIAL Timed 02/17/2021 6:06 Results for THROMBOPLASTIN TIME AM CDT this pro cedure (APTT), P are in the results section. CBC WITHOUT Routine 02/17/2021 6:06 Results for DIFFERENTIAL, B AM CDT this procedu re are in the results section. ACTIVATED PARTIAL Timed 02/16/2021 Results fo r THROMBOPLASTIN TIME 11:08 PM CDT this pro cedure (APTT), P are in the results section. ADULT OXYGEN THERAPY Routine 02/16/2021 10:59 AM CDT IR CEREBRAL RAD - Routine 02/16/2021 Results for INTRACRANIAL ARTERY (most inpatients 10:27 AM CDT this procedure EMBOLIZATION and all are in the outpatients) results section. ACT, POCT, B Routine 02/16/2021 9:31 Results for AM CDT this procedure are in the results section. PROTHROMBIN TIME (PT), Routine 02/15/2021 5:31 Re sults for P AM CDT this procedure are in the results section. PROTHROMBIN TIME (PT), STAT 02/14/2021 Resul ts for P 11:27 AM CDT this procedure are in the results section. CBC WITHOUT STAT 02/14/2021 Results for DIFFERENTIAL, B 12:24 AM CDT this procedu re are in the results section. LACTATE, B/P STAT 02/14/2021 Results for 12:24 AM CDT this procedure are in the results section. BASIC METABOLIC PANEL, STAT 02/14/2021 Resul ts for S/P 12:24 AM CDT this procedure are in the results section. MR BRAIN WOW AND BRAIN RAD - Routine 02/13/2021 4:02 R esults for ANGIO WO AND NECK ANGIO (most inpatients PM CDT this procedure WOW IV CONTRAST and all are in the outpatients) results section. CT HEAD WITHOUT IV RAD - Routine 02/13/2021 5:44 Resul ts for CONTRAST (most inpatients AM CDT this proced ure and all are in the outpatients) results section. CT HEAD NECK ANGIOGRAM RAD - Routine 02/13/2021 5:44 R esults for WITH IV CONTRAST (most inpatients AM CDT this pr ocedure and all are in the outpatients) results section. APIXABAN, ANTI-XA, P STAT 02/13/2021 5:44 Resu lts for AM CDT this procedure are in the results section. PROTHROMBIN TIME (PT), STAT 02/13/2021 5:44 Re sults for P AM CDT this procedure are in the results section. CBC WITHOUT STAT 02/13/2021 5:44 Results for DIFFERENTIAL, B AM CDT this procedu re are in the results section. TYPE AND SCREEN STAT 02/13/2021 5:44 Results f or AM CDT this procedure are in the results section. BASIC METABOLIC PANEL, STAT 02/13/2021 5:44 Re sults for S/P AM CDT this procedure are in the results section. (DEVON) 2D WITH COLOR, Routine 02/11/2021 Results for LIMITED DOPPLER AND 11:09 AM CDT this pro cedure CONTRAST are in the results section. BACTERIA / MANDI Routine 02/11/2021 9:49 Result s for CULTURE, BLOOD AM CDT this procedur e are in the results section. APIXABAN, ANTI-XA, P Timed 02/11/2021 9:48 Resu lts for AM CDT this procedure are in the results section. BACTERIA / MANDI Routine 02/11/2021 9:48 Result s for CULTURE, BLOOD AM CDT this procedur e are in the results section. HEPARIN LEVEL ANTI-XA STAT 02/11/2021 1:56 Res ults for ASSAY, P AM CDT this procedure are in the results section. INTERPRETATION OF RAD - Routine 02/11/2021 1:26 Result s for OUTSIDE MR HEAD (most inpatients AM CDT this pro cedure and all are in the outpatients) results section. INTERPRETATION OF RAD - Routine 02/11/2021 1:25 Result s for OUTSIDE MR HEAD (most inpatients AM CDT this pro cedure and all are in the outpatients) results section. INTERPRETATION OF RAD - Routine 02/11/2021 1:24 Result s for OUTSIDE MR HEAD (most inpatients AM CDT this pro cedure and all are in the outpatients) results section. SARS CORONAVIRUS 2, Routine 02/11/2021 Results for RNA, RAPID POC, V 12:48 AM CDT this proce dure are in the results section. PROTHROMBIN TIME (PT), Routine 02/11/2021 Resul ts for P 12:35 AM CDT this procedure are in the results section. CBC WITHOUT Routine 02/11/2021 Results for DIFFERENTIAL, B 12:35 AM CDT this procedu re are in the results section. ALANINE Routine 02/11/2021 Results for AMINOTRANSFERASE (ALT), 12:34 AM CDT this procedure S/P are in the results section. ASPARTATE Routine 02/11/2021 Results for AMINOTRANSFERASE (AST), 12:34 AM CDT this procedure S/P are in the results section. BASIC METABOLIC PANEL, Routine 02/11/2021 Resul ts for S/P 12:34 AM CDT this procedure are in the results section. ECG Routine 02/10/2021 Results for 11:47 PM CDT this procedure are in the results section. documented in this encounter Results CT Head without IV Contrast (02/17/2021 11:26 AM CDT) Anatomical Region Laterality Modality Head, Neuroradiology RST LOS, N/A Computed T omography, Computed Neuroradiology ARZ LOS, Neuroradiology T omography FLA [facility] Specimen (Source) Anatomical Collection Method Collection Time Re ceived Time Location / / Volume Laterality 02/17/2021 11:33 AM CDT Impressions 02/17/2021 12:11 PM CDT 1. Interval right vertebral artery embolization with persistent opacification of the intracranial portion of the right ve rtebral artery, possibly due to retrograde filling. 2. Unchanged filling defect in the proxi mal intracranial right vertebral artery, likely residual dissection flap. 3. Known evolving infarcts involving the cerebellum, left occipital lobe, and thalami. No acute hemorrhage. 4. Unchanged left paraclinoid and suprac linoid ICA aneurysms. Narrative 02/17/2021 12:11 PM CDT EXAM: CT HEAD WITHOUT IV CONTRAST, CT HEAD NECK ANGIOGRAM WITH IV CONTRAST Including 3D image post-processing. COMPARISON: CT head and CTA head and nec k 02/13/2021 and MRI brain 02/13/2021 FINDINGS: CT HEAD: Similar hypoattenuati on in the bilateral cerebellar hemispheres, left medial occipital lobe, and subtle hypoattenuation in the thalami consistent with infarcts corresp onding to 02/13/2021 MRI finding. Encephalomalacia of the left occipital l obe and right inferior cerebellar hemisphere. No acute intracranial hemorr jon. No definite new large vessel territorial infarction. No mass effect. Postoperative changes in the paranasal sinuses. CTA head and neck: Expected post procedu re findings from right vertebral artery embolization with embolization device in the V2 segment. There is filling of the intracranial segment of the right verteb ral artery. Unchanged luminal narrowing with a filling defect in the proximal ri ght V4 segment, possibly an intimal flap. Unchanged 5 mm left paraclinoid ICA aneu rysm projecting laterally and 2 mm left supraclinoid ICA aneurysm projecting inf eriorly. The anterior and posterior cerebral circulation is intact. The left posterior communicating artery is not well visualized, likely diminutive. Conventional three-vessel left-sided aor tic arch. Proximal common carotid arteries are not well assessed due to pa tient motion and metallic hardware artifacts. Mid/distal common carotid and cervical internal carotid arteries are patent. The left vertebral artery is wid arron patent. Postoperative changes of cervicothoracic fusion. Left shoulder re placement hardware. Procedure Note [place] Chavez M.D. - 02/17/2021Formatti ng of this note might be different from the original. EXAM: CT HEAD WITHOUT IV CONTRAST, CT HE AD NECK ANGIOGRAM WITH IV CONTRAST Including 3D image post-processing. COMPARISON: CT head and CTA head and nec k 02/13/2021 and MRI brain 02/13/2021 FINDINGS: CT HEAD: Similar hypoattenuati on in the bilateral cerebellar hemispheres, left medial occipital lobe, and subtle hypoattenuation in the thalami consistent with infarcts corresp onding to 02/13/2021 MRI finding. Encephalomalacia of the left occipital l obe and right inferior cerebellar hemisphere. No acute intracranial hemorr jon. No definite new large vessel territorial infarction. No mass effect. Postoperative changes in the paranasal sinuses. CTA head and neck: Expected post procedu re findings from right vertebral artery embolization with embolization device in the V2 segment. There is filling of the intracranial segment of the right verteb ral artery. Unchanged luminal narrowing with a filling defect in the proximal ri ght V4 segment, possibly an intimal flap. Unchanged 5 mm left paraclinoid ICA aneu rysm projecting laterally and 2 mm left supraclinoid ICA aneurysm projecting inf eriorly. The anterior and posterior cerebral circulation is intact. The left posterior communicating artery is not well visualized, likely diminutive. Conventional three-vessel left-sided aor tic arch. Proximal common carotid arteries are not well assessed due to pa tient motion and metallic hardware artifacts. Mid/distal common carotid and cervical internal carotid arteries are patent. The left vertebral artery is wid arron patent. Postoperative changes of cervicothoracic fusion. Left shoulder re placement hardware. IMPRESSION: 1. Interval right vertebral artery embol ization with persistent opacification of the intracranial portion of the right ve rtebral artery, possibly due to retrograde filling. 2. Unchanged filling defect in the proxi mal intracranial right vertebral artery, likely residual dissection flap. 3. Known evolving infarcts involving the cerebellum, left occipital lobe, and thalami. No acute hemorrhage. 4. Unchanged left paraclinoid and suprac linoid ICA aneurysms. Aleisha NIELSON CT PROCEDURES CT Head Neck Angiogram with IV Contrast (02/17/2021 11:26 AM CDT) Anatomical Region Laterality Modality Head and Neck, Neuroradiology RST LOS, N/A C omputed Tomography, Computed Neuroradiology ARZ LOS, Neuroradiology T omography FLA [facility] Specimen (Source) Anatomical Collection Method Collection Time Re ceived Time Location / / Volume Laterality 02/17/2021 11:33 AM CDT Impressions 02/17/2021 12:11 PM CDT 1. Interval right vertebral artery embolization with persistent opacification of the intracranial portion of the right ve rtebral artery, possibly due to retrograde filling. 2. Unchanged filling defect in the proxi mal intracranial right vertebral artery, likely residual dissection flap. 3. Known evolving infarcts involving the cerebellum, left occipital lobe, and thalami. No acute hemorrhage. 4. Unchanged left paraclinoid and suprac linoid ICA aneurysms. Narrative 02/17/2021 12:11 PM CDT EXAM: CT HEAD WITHOUT IV CONTRAST, CT HEAD NECK ANGIOGRAM WITH IV CONTRAST Including 3D image post-processing. COMPARISON: CT head and CTA head and nec k 02/13/2021 and MRI brain 02/13/2021 FINDINGS: CT HEAD: Similar hypoattenuati on in the bilateral cerebellar hemispheres, left medial occipital lobe, and subtle hypoattenuation in the thalami consistent with infarcts corresp onding to 02/13/2021 MRI finding. Encephalomalacia of the left occipital l obe and right inferior cerebellar hemisphere. No acute intracranial hemorr jon. No definite new large vessel territorial infarction. No mass effect. Postoperative changes in the paranasal sinuses. CTA head and neck: Expected post procedu re findings from right vertebral artery embolization with embolization device in the V2 segment. There is filling of the intracranial segment of the right verteb ral artery. Unchanged luminal narrowing with a filling defect in the proximal ri ght V4 segment, possibly an intimal flap. Unchanged 5 mm left paraclinoid ICA aneu rysm projecting laterally and 2 mm left supraclinoid ICA aneurysm projecting inf eriorly. The anterior and posterior cerebral circulation is intact. The left posterior communicating artery is not well visualized, likely diminutive. Conventional three-vessel left-sided aor tic arch. Proximal common carotid arteries are not well assessed due to pa tient motion and metallic hardware artifacts. Mid/distal common carotid and cervical internal carotid arteries are patent. The left vertebral artery is wid arron patent. Postoperative changes of cervicothoracic fusion. Left shoulder re placement hardware. Procedure Note [place] Chavez M.D. - 02/17/2021Formatti ng of this note might be different from the original. EXAM: CT HEAD WITHOUT IV CONTRAST, CT HE AD NECK ANGIOGRAM WITH IV CONTRAST Including 3D image post-processing. COMPARISON: CT head and CTA head and nec k 02/13/2021 and MRI brain 02/13/2021 FINDINGS: CT HEAD: Similar hypoattenuati on in the bilateral cerebellar hemispheres, left medial occipital lobe, and subtle hypoattenuation in the thalami consistent with infarcts corresp onding to 02/13/2021 MRI finding. Encephalomalacia of the left occipital l obe and right inferior cerebellar hemisphere. No acute intracranial hemorr jon. No definite new large vessel territorial infarction. No mass effect. Postoperative changes in the paranasal sinuses. CTA head and neck: Expected post procedu re findings from right vertebral artery embolization with embolization device in the V2 segment. There is filling of the intracranial segment of the right verteb ral artery. Unchanged luminal narrowing with a filling defect in the proximal ri ght V4 segment, possibly an intimal flap. Unchanged 5 mm left paraclinoid ICA aneu rysm projecting laterally and 2 mm left supraclinoid ICA aneurysm projecting inf eriorly. The anterior and posterior cerebral circulation is intact. The left posterior communicating artery is not well visualized, likely diminutive. Conventional three-vessel left-sided aor tic arch. Proximal common carotid arteries are not well assessed due to pa tient motion and metallic hardware artifacts. Mid/distal common carotid and cervical internal carotid arteries are patent. The left vertebral artery is wid arron patent. Postoperative changes of cervicothoracic fusion. Left shoulder re placement hardware. IMPRESSION: 1. Interval right vertebral artery embol ization with persistent opacification of the intracranial portion of the right ve rtebral artery, possibly due to retrograde filling. 2. Unchanged filling defect in the proxi mal intracranial right vertebral artery, likely residual dissection flap. 3. Known evolving infarcts involving the cerebellum, left occipital lobe, and thalami. No acute hemorrhage. 4. Unchanged left paraclinoid and suprac linoid ICA aneurysms. Aleisha Vega M.D. IMG CT PROCEDURES (ABNORMAL) APTT (Activated Partial Thromboplastin Time) (02/17/2021 6:06 AM CDT) P athologist Signature Activated 51 (H) 25 - 37 02/17/2021 DTL Partial sec 6:54 AM CDT Thrombopl Time, P Specimen Anatomical Collection Method Collection Time Receive d Time (Source) Location / / Volume Laterality Blood (Blood, 02/17/2021 6:06 AM 02/18/20 21 6:31 Venous) CDT AM CDT Robert Diehl M.D. LAB BLOOD ADD-ON Performing Organization Address City/State/ZIP Code Phon e Number [facility] [address] [place], [place] [address] [facility] [place] [address] Laboratories-[facility] [place] [address] (ABNORMAL) CBC without Differential (02/17/2021 6:06 AM CDT) Patholo gist Method Time Signature Hemoglobin 10.1 (L) 11.6 - 02/17/2021 DTL 15.0 g/dL 6:39 AM CDT Hematocrit 32.5 (L) 35.5 - 02/17/2021 DTL 44.9 % 6:39 AM CDT Erythrocytes 3.50 (L) 3.92 - 02/17/2021 DTL 5.13 6:39 AM CDT x10(12)/L MCV 92.9 78.2 - 02/17/2021 DTL 97.9 fL 6:39 AM CDT RBC Distrib Width 15.3 12.2 - 02/17/2021 DTL 16.1 % 6:39 AM CDT Platelet Count 277 157 - 371 02/17/2021 DTL x10(9)/L 6:39 AM CDT Leukocytes 6.7 3.4 - 9.6 02/17/2021 DTL x10(9)/L 6:39 AM CDT Specimen Anatomical Collection Method Collection Time Receive d Time (Source) Location / / Volume Laterality Blood (Blood, 02/17/2021 6:06 AM 02/18/20 6:30 Venous) CDT AM CDT Robert Diehl M.D. LAB BLOOD ADD-ON Performing Organization Address [facility] Phon e Number [facility] - [address] (ABNORMAL) APTT (Activated Partial Thromboplastin Time) (02/16/2021 11:08 PM CDT) P athologist Signature Activated 49 (H) 25 - 37 02/17/2021 DTL Partial sec 12:07 AM CDT Thrombopl Time, P Specimen Anatomical Collection Method Collection Time Receive d Time (Source) Location / / Volume Laterality Blood (Blood, 02/16/2021 11:08 02/16/2021 Venous) PM CDT 11:47 PM CDT Robert Diehl M.D. LAB BLOOD ADD-ON Performing Organization Address [facility] Phon e Number 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 EP Narrative 02/16/2021 4:35 PM CDT EXAM: ??IR CEREBRAL INTRACRANIAL ARTERY EMBOLIZATION COMPARISON: ??MRI brain 02/13/2021 PREPROCEDURE: ??Patient seen and evaluat ed. Allergies, pertinent medications, and history reviewed. Discussed [...] team members, residents, and fellows were discussed. S edation provided by Anesthesiology. TECHNIQUE: Using sterile technique and u ltrasound guidance to access the vessel, patency was shown, and after anesthetizi ng the skin with lidocaine, the right radial artery and the right common femor al artery were punctured successfully. A permanent image was created and stored. Using sterile technique and local anesthetic, a 6 Cambodian sheath was placed in the right FLAT KNITTER HELPER via modified Seldinger technique. A 6 Cambodian sheath was placed in the right radial artery. A 5 Cambodian Berenstein catheter was placed in the as cending aorta. The catheter was placed in the left vertebral artery and cerebra l angiography was performed. Following this, we advanced a 6 Cambodian Benchmark c atheter into the right vertebral artery. Cerebral angiography was performed. We t hen proceeded with embolization. We advanced a 4 x 10 mm Scepter XC balloon to the face of the stenosis at C1. Following this, the artery was embolized using multiple detachable coils. We then further embolized the vertebral art silva using two Amplatzer plugs. A total of ten control angiograms of the right v ertebral artery were performed. A total of five control angiograms of the left v ertebral artery were performed. The patient tolerated the procedure well and her neurologic status was unchanged. Hemostasis was achieved in the right kitty in with intact distal perfusion using Angio-Seal. Hemostasis was achieved in t he right radial artery using a TR Band. Dr. Castillo was the attending physicia n. ??Dr. Benjamin and Dr. Crooks assisted. FINDINGS: ?? Left vertebral artery demonstrates no ev idence of aneurysm, stenosis, arteriovenous shunting, or occlusion. Th ere is partial reconstitution of the right posterior inferior cerebellar ron ry territory via AICA to PICA collaterals. Normal venous phase. Right vertebral artery cerebral angiogra m demonstrates a flow-limiting stenosis at right C1 which has the morphology of a dissection. There may be some thrombus at the distal aspect of the stenosis. Multiple intermittent control angiograms of the right vertebral artery after embolization demonstrate progressive slo wing of flow and the final control angiogram shows complete occlusion of th e right vertebral artery. Multiple progressive angiograms of the l eft vertebral artery demonstrate continued anterograde flow to the basila r artery and normal cerebellar blush. Jeannette NIELSON IR PROCEDURES (ABNORMAL) ACT (Activated Clotting Time), POCT (02/16/2021 9:31 AM CDT) athologist Signature Activated 269 (H) 84 - 139 02/16/2021 PCSM Clotting Time, sec 9:41 AM CDT POCT Specimen Anatomical Collection Method Collection Time Receive d Time (Source) Location / / Volume Laterality Blood 02/16/2021 9:31 AM 9:41 CDT AM CDT Unknown Provider LAB POCT ORDERABLES - DEVICE Performing Organization Address City/State/ZIP Code Phon e Number POC RST [facility] INPATIENT [address] [place], [place] [address] LABS PCSM [facility] [place] [address] [facility] [address] [place] [address] Prothrombin Time (PT) (02/15/2021 5:31 AM CDT) athologist Signature Prothrombin 12.5 9.4 - 12.5 02/15/2021 DTL Time, P sec 6:53 AM CDT INR 1.1 0.9 - 1.1 02/15/2021 DTL 6:53 AM CDT Comment: ----ADDITIONAL INFORMATION---- Standard intensity warfarin therapeutic range: 2.0 to 3.0 ?? High intensity warfarin therapeutic rang e: 2.5 to 3.5 Specimen Anatomical Collection Method Collection Time Receive d Time (Source) Location / / Volume Laterality Blood (Blood, 02/15/2021 5:31 AM 02/16/20 6:04 Venous) CDT AM CDT Aleisha Vega M.D. LAB BLOOD ADD-ON Performing Organization Address City/[facility] Phon e Number [facility] - [address] [place] [address] [facility] [place] [address] Laboratories-[address] (ABNORMAL) Prothrombin Time (PT) (02/14/2021 11:27 AM CDT) Patholo gist Method Time Signature Prothrombin 15.1 (H) 9.4 - 12.5 02/[facility]/2021 [facility], P sec 11:42 AM CDT INR 1.4 0.9 - 1.1 02/14/2021 [facility] 11:42 AM CDT Comment: ----ADDITIONAL INFORMATION---- Standard intensity warfarin therapeutic range: 2.0 to 3.0 ?? High intensity warfarin therapeutic rang e: 2.5 to 3.5 Specimen Anatomical Collection Method Collection Time Receive d Time (Source) Location / / Volume Laterality Blood (Blood, 02/14/2021 11:27 02/14/2021 Venous) AM CDT 11:36 AM CDT Aleisha Vega M.D. LAB BLOOD ADD-ON Performing Organization Address City/[facility] Phon e Number [facility] - [address] [place] [id number] Laboratories-[address] (ABNORMAL) Basic Metabolic Panel (02/14/2021 12:24 AM CDT) P athologist Signature Potassium, P 3.9 3.6 - 5.2 02/14/2021 DTL mmol/L 1:06 AM CDT Sodium, P 137 135 - 145 02/14/2021 DTL mmol/L 1:06 AM CDT Chloride, P 104 98 - 107 02/14/2021 DTL mmol/L 1:06 AM CDT Bicarbonate, P 24 22 - 29 02/14/2021 DTL mmol/L 1:06 AM CDT Anion Gap, P 9 7 - 15 02/14/2021 DTL 1:06 AM CDT BUN (Blood Urea 17 6 - 21 02/14/2021 DTL Nitrogen), P mg/dL 1:06 AM CDT Creatinine, P 0.72 0.59 - 1.04 02/14/2021 DTL mg/dL 1:06 AM CDT eGFR-Black/Afri >90 >=60 02/14/2021 DTL can [place] mL/min/BSA 1:06 AM CDT Comment: ----ADDITIONAL INFORMATION---- Estimated GFR calculated using the 2009 CKD_EPI creatinine equation. eGFR Non-Black/ >90 >=60 mL/min/BSA 1:06 AM CDT DTL Comment: ----ADDITIONAL INFORMATION---- Estimated GFR calculated using the 2009 CKD_EPI creatinine equation. Calcium, Total, P 9.0 8.6 - 10.0 mg/dL 02/14/2021 1:06 AM CDT DTL Glucose, P 145 (H) 70 - 140 mg/dL 02/14/2021 1:06 AM CDT D TL Specimen Anatomical Collection Method Collection Time Receive d Time (Source) Location / / Volume Laterality Blood (Blood, 02/14/2021 12:24 02/14/2021 Venous) AM CDT 12:43 AM CDT Laquita Malagon M.D. LAB BLOOD ADD-ON Performing Organization Address City/State/[facility] Code Phon e Number [facility] - [address] [place] [address] [place] [address] [place] [address] [place] [address] [address] [facility] Lactate, baseline (02/14/2021 12:24 AM CDT) P athologist Signature Lactate, P 1.2 0.5 - 2.2 02/14/2021 DTL mmol/L 1:05 AM CDT Specimen Anatomical Collection Method Collection Time Receive d Time (Source) Location / / Volume Laterality Blood (Blood, 02/14/2021 12:24 02/14/2021 Venous) AM CDT 12:43 AM CDT Laquita Malagon M.D. LAB BLOOD NON ADD-ON Performing Organization Address City/State/[facility] Code Phon e Number [facility] - [address] [place], [place] [address] [facility] [place] [address] Laboratories-[place] [address] [facility] (ABNORMAL) CBC without Differential (02/14/2021 12:24 AM CDT) [facility] gist Method Time Signature Hemoglobin 11.0 (L) 11.6 - 02/14/2021 [facility] 15.0 g/dL 12:31 AM CDT Hematocrit 34.2 (L) 35.5 - 02/14/2021 [facility] 44.9 % 12:31 AM CDT Erythrocytes 3.72 (L) 3.92 - 02/14/2021 [facility] 5.13 12:31 AM CDT x10(12)/L MCV 91.9 78.2 - 02/14/2021 [facility] 97.9 fL 12:31 AM CDT RBC Distrib Width 14.9 12.2 - 02/14/2021 [facility] 16.1 % 12:31 AM CDT Platelet Count 311 157 - 371 02/14/2021 [facility] x10(9)/L 12:31 AM CDT Leukocytes 5.5 3.4 - 9.6 02/14/2021 [facility] x10(9)/L 12:31 AM CDT Specimen Anatomical Collection Method Collection Time Receive d Time (Source) Location / / Volume Laterality Blood (Blood, 02/14/2021 12:24 02/14/2021 Venous) AM CDT 12:29 AM CDT Laquita Malagon M.D. LAB BLOOD ADD-ON Performing Organization Address City/State/ZIP Code Phon e Number [facility] - [address] [place] [address] [place] [address] Laboratories-[address] MR Brain WOW and Brain Angio WO and Neck Angio WOW IV Contrast (02/13/2021 4:02 PM CDT) Anatomical Region Laterality Modality Head, Brain, Neuroradiology RST LOS, Neuroradiology ARZ N/A Magnetic Resonance LOS, Neuroradiology FLA LOS Specimen (Source) Anatomical Collection Method Collection Time Re ceived Time Location / / Volume Laterality 02/13/2021 4:53 PM CDT Impressions 02/13/2021 5:19 PM CDT 1. ??Patient motion artifact. 2. ??Posterior circulation acute/subacut e infarcts. 3. ??Poor flow within the V4 segment of the right vertebral artery and right PICA. 4. ??Two left supraclinoid aneurysms. Narrative 02/13/2021 5:19 PM CDT EXAM: MR BRAIN WOW AND BRAIN ANGIO WO AND NECK ANGIO WOW IV CONTRAST COMPARISON: Recent brain imaging includi ng the CTA dated 02/13/2021. FINDINGS: Images are degraded by patient motion ar tifact. Brain: Scattered areas of restricted diffusion are observed within the medial aspects of both thalami, medial aspects of both occipital lobes, both cerebellar hemispheres, consistent with acute/subac [place] infarcts in both posterior cerebral artery territories. No hemorrhagic complication or significa nt intracranial mass effect. No hydrocephalus or midline shift. No subdu ral fluid collection is seen. Mild cerebral and cerebellar atrophy. The par anasal sinuses and mastoid air cells are clear. The [place] intraocular lenses are absent. The MRA of the [facility] [place] demonstr ates a left supraclinoid aneurysm measuring approximately 4 mm in size poi nting laterally. Additionally, a small approximately 2 mm lateral aneurysm is o bserved of the left internal carotid artery terminus. No significant abnormal ity seen of the left vertebral artery. Poor flow related signal seen in right V 4 and right PICA. The proximal basilar artery is small in caliber with mild irr egularity of the lumen most consistent with atherosclerosis. Diminished flow re lated signal seen within the distal posterior cerebral arteries. Conventional aortic arch anatomy. The ce rvical arteries are tortuous. No significant narrowing of the common portillo tid arteries. The vertebral arteries are codominant. Poor enhancement within the horizontal segment of the right vertebral artery at distal V3. No signif icant narrowing of the internal carotid arteries. Procedure Note Raquel Bedoya M.D. - 02/13/2021Fo rmatting of this note might be different from the original. EXAM: MR BRAIN WOW AND BRAIN ANGIO WO AN D NECK ANGIO WOW IV CONTRAST COMPARISON: Recent brain imaging includi ng the CTA dated 02/13/2021. FINDINGS: Images are degraded by patient motion ar tifact. Brain: Scattered areas of restricted diffusion are observed within the medial aspects of both thalami, medial aspects of both occipital lobes, both cerebellar hemispheres, consistent with acute/subac [place] infarcts in both posterior cerebral artery territories. No hemorrhagic complication or significa nt intracranial mass effect. No hydrocephalus or midline shift. No subdu ral fluid collection is seen. Mild cerebral and cerebellar atrophy. The par anasal sinuses and mastoid air cells are clear. The [place] intraocular lenses are absent. The MRA of the [facility] [place] demonstr ates a left supraclinoid aneurysm measuring approximately 4 mm in size poi nting laterally. Additionally, a small approximately 2 mm lateral aneurysm is o bserved of the left internal carotid artery terminus. No significant abnormal ity seen of the left vertebral artery. Poor flow related signal seen in right V 4 and right PICA. The proximal basilar artery is small in caliber with mild irr egularity of the lumen most consistent with atherosclerosis. Diminished flow re lated signal seen within the distal posterior cerebral arteries. Conventional aortic arch anatomy. The ce rvical arteries are tortuous. No significant narrowing of the common portillo tid arteries. The vertebral arteries are codominant. Poor enhancement within the horizontal segment of the right vertebral artery at distal V3. No signif icant narrowing of the internal carotid arteries. IMPRESSION: 1. Patient motion artifact. 2. Posterior circulation acute/subacute infarcts. 3. Poor flow within the V4 segment of th e right vertebral artery and right PICA. 4. Two left supraclinoid aneurysms. Laquita NIELSON MRI PROCEDURES CT Head Neck Angiogram with IV Contrast (02/13/2021 5:44 AM CDT) Anatomical Region Laterality Modality Head and Neck, Neuroradiology RST LOS, N/A C omputed Tomography, Computed Neuroradiology ARZ [facility], Neuroradiology T omography FLA [facility] Specimen (Source) Anatomical Collection Method Collection Time Re ceived Time Location / / Volume Laterality 02/13/2021 5:29 AM CDT Impressions 02/13/2021 7:52 AM CDT 1. Stable appearance of the acute on subacute posterior circulation strokes as described. No definite new infarct is id entified. 2. No intracranial hemorrhage. No eviden ce for hemorrhagic transformation of the evolving acute cerebellar and thalamic i nfarcts. 3. Stable appearance of the filling defe ct within the distal right V3/V4 vertebral artery, likely on the basis of dissection. 4. 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 Narrative 02/13/2021 7:52 AM CDT EXAM: CT HEAD WITHOUT IV CONTRAST, CT HEAD NECK ANGIOGRAM WITH IV CONTRAST Including 3D image post-processing. COMPARISON: Outside head CT 02/10/2021. Outside MR brain 02/10/2021. Outside MRA head and neck 02/10/2021. Outside CT hea d neck 01/30/2021. FINDINGS: CT head findings: Compared to the prior CT from 02/10/2021 , similar appearance of the areas of hypoattenuation in the bilateral cerebel lar hemispheres and more subtly within the bilateral thalami, which demonstrate d restricted diffusion on outside brain MR 02/10/2021 consistent with evolving a cute infarcts. Stable appearance of the chronic appearing encephalomalacia invol ving the left occipital lobe and right inferior cerebellar hemisphere. No defin ite new infarcts are identified. No extra-axial or intra-axial hemorrhage . Normal appearance of ventricular system. Preservation of the basal cister ns. No mass effect or midline shift. The calvarium is intact. The paranasal sinus es mastoid air cells are clear. Bilateral pseudophakia. CTA head and neck: Conventional 3 vessel branching pattern of the aortic arch. The bilateral common, external, and internal carotid a rteries are widely patent. Similar appearance of the filling defect within the right distal V3 and focal narrowing of the proximal V4 vertebral a rtery segments (series 6 image [id number]. The left vertebral artery is widely torres nt. Stable appearance of the 4 mm left parac linoid aneurysm and the 2 mm left supraclinoid ICA aneurysm. The bilateral anterior, and middle cerebral arteries are widely patent. The distal posterior cerebral arteries are diminutive in caliber, unchanged since the prior CTA o n 01/30/2021. Otherwise, the posterior circulation is intact. Cervical-thoracic fusion with posterior leslie and pedicle screw screw instrumentation. Procedure Note Mika Wu M.D. - 02/13/2021For matting of this note might be different from the original. EXAM: CT HEAD WITHOUT IV CONTRAST, CT HE AD NECK ANGIOGRAM WITH IV CONTRAST Including 3D image post-processing. COMPARISON: Outside head CT 02/10/2021. Outside MR brain 02/10/2021. Outside MRA head and neck 02/10/2021. Outside CT hea d neck 01/30/2021. FINDINGS: CT head findings: Compared to the prior CT from 02/10/2021 , similar appearance of the areas of hypoattenuation in the bilateral cerebel lar hemispheres and more subtly within the bilateral thalami, which demonstrate d restricted diffusion on outside brain MR 02/10/2021 consistent with evolving a cute infarcts. Stable appearance of the chronic appearing encephalomalacia invol ving the left occipital lobe and right inferior cerebellar hemisphere. No defin ite new infarcts are identified. No extra-axial or intra-axial hemorrhage . Normal appearance of ventricular system. Preservation of the basal cister ns. No mass effect or midline shift. The calvarium is intact. The paranasal sinus es mastoid air cells are clear. Bilateral pseudophakia. CTA head and neck: Conventional 3 vessel branching pattern of the aortic arch. The bilateral common, external, and internal carotid a rteries are widely patent. Similar appearance of the filling defect within the right distal V3 and focal narrowing of the proximal V4 vertebral a rtery segments (series 6 image [id number]. The left vertebral artery is widely torres nt. Stable appearance of the 4 mm left parac linoid aneurysm and the 2 mm left supraclinoid ICA aneurysm. The bilateral anterior, and middle cerebral arteries are widely patent. The distal posterior cerebral arteries are diminutive in caliber, unchanged since the prior CTA o n 01/30/2021. Otherwise, the posterior circulation is intact. Cervical-thoracic fusion with posterior leslie and pedicle screw screw instrumentation. IMPRESSION: 1. Stable appearance of the acute on sub acute posterior circulation strokes as described. No definite new infarct is id entified. 2. No intracranial hemorrhage. No eviden ce for hemorrhagic transformation of the evolving acute cerebellar and thalamic i nfarcts. 3. Stable appearance of the filling defe ct within the distal right V3/V4 vertebral artery, likely on the basis of dissection. 4. 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 Aleisha NIELSON CT PROCEDURES CT Head without IV Contrast (02/13/2021 5:44 AM CDT) Anatomical Region Laterality Modality Head, Neuroradiology RST LOS, N/A Computed T omography, Computed Neuroradiology ARZ LOS, Neuroradiology T omography FLA LOS Specimen (Source) Anatomical Collection Method Collection Time Re ceived Time Location / / Volume Laterality 02/13/2021 5:29 AM CDT Impressions 02/13/2021 7:52 AM CDT 1. Stable appearance of the acute on subacute posterior circulation strokes as described. No definite new infarct is id entified. 2. No intracranial hemorrhage. No eviden ce for hemorrhagic transformation of the evolving acute cerebellar and thalamic i nfarcts. 3. Stable appearance of the filling defe ct within the distal right V3/V4 vertebral artery, likely on the basis of dissection. 4. 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 Narrative 02/13/2021 7:52 AM CDT EXAM: CT HEAD WITHOUT IV CONTRAST, CT HEAD NECK ANGIOGRAM WITH IV CONTRAST Including 3D image post-processing. COMPARISON: Outside head CT 02/10/2021. Outside MR brain 02/10/2021. Outside MRA head and neck 02/10/2021. Outside CT hea d neck 01/30/2021. FINDINGS: CT head findings: Compared to the prior CT from 02/10/2021 , similar appearance of the areas of hypoattenuation in the bilateral cerebel lar hemispheres and more subtly within the bilateral thalami, which demonstrate d restricted diffusion on outside brain MR 02/10/2021 consistent with evolving a cute infarcts. Stable appearance of the chronic appearing encephalomalacia invol ving the left occipital lobe and right inferior cerebellar hemisphere. No defin ite new infarcts are identified. No extra-axial or intra-axial hemorrhage . Normal appearance of ventricular system. Preservation of the basal cister ns. No mass effect or midline shift. The calvarium is intact. The paranasal sinus es mastoid air cells are clear. Bilateral pseudophakia. CTA head and neck: Conventional 3 vessel branching pattern of the aortic arch. The bilateral common, external, and internal carotid a rteries are widely patent. Similar appearance of the filling defect within the right distal V3 and focal narrowing of the proximal V4 vertebral a rtery segments (series 6 image [id number]. The left vertebral artery is widely torres nt. Stable appearance of the 4 mm left parac linoid aneurysm and the 2 mm left supraclinoid ICA aneurysm. The bilateral anterior, and middle cerebral arteries are widely patent. The distal posterior cerebral arteries are diminutive in caliber, unchanged since the prior CTA o n 01/30/2021. Otherwise, the posterior circulation is intact. Cervical-thoracic fusion with posterior leslie and pedicle screw screw instrumentation. Procedure Note Mika Wu M.D. - 02/13/2021For matting of this note might be different from the original. EXAM: CT HEAD WITHOUT IV CONTRAST, CT HE AD NECK ANGIOGRAM WITH IV CONTRAST Including 3D image post-processing. COMPARISON: Outside head CT 02/10/2021. Outside MR brain 02/10/2021. Outside MRA head and neck 02/10/2021. Outside CT hea d neck 01/30/2021. FINDINGS: CT head findings: Compared to the prior CT from 02/10/2021 , similar appearance of the areas of hypoattenuation in the bilateral cerebel lar hemispheres and more subtly within the bilateral thalami, which demonstrate d restricted diffusion on outside brain MR 02/10/2021 consistent with evolving a cute infarcts. Stable appearance of the chronic appearing encephalomalacia invol ving the left occipital lobe and right inferior cerebellar hemisphere. No defin ite new infarcts are identified. No extra-axial or intra-axial hemorrhage . Normal appearance of ventricular system. Preservation of the basal cister ns. No mass effect or midline shift. The calvarium is intact. The paranasal sinus es mastoid air cells are clear. Bilateral pseudophakia. CTA head and neck: Conventional 3 vessel branching pattern of the aortic arch. The bilateral common, external, and internal carotid a rteries are widely patent. Similar appearance of the filling defect within the right distal V3 and focal narrowing of the proximal V4 vertebral a rtery segments (series 6 image [id number]. The left vertebral artery is widely torres nt. Stable appearance of the 4 mm left parac linoid aneurysm and the 2 mm left supraclinoid ICA aneurysm. The bilateral anterior, and middle cerebral arteries are widely patent. The distal posterior cerebral arteries are diminutive in caliber, unchanged since the prior CTA o n 01/30/2021. Otherwise, the posterior circulation is intact. Cervical-thoracic fusion with posterior leslie and pedicle screw screw instrumentation. IMPRESSION: 1. Stable appearance of the acute on sub acute posterior circulation strokes as described. No definite new infarct is id entified. 2. No intracranial hemorrhage. No eviden ce for hemorrhagic transformation of the evolving acute cerebellar and thalamic i nfarcts. 3. Stable appearance of the filling defe ct within the distal right V3/V4 vertebral artery, likely on the basis of dissection. 4. 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 Aleisha NIELSON CT PROCEDURES (ABNORMAL) Apixaban, Anti-Xa, P (02/13/2021 5:44 AM CDT) P athologist Signature Apixaban, 98 (H) <10 ng/mL 02/13/2021 DTL Anti-Xa, P 8:48 AM CDT Comment: ----ADDITIONAL INFORMATION---- This test has been modified from the man ufacturer's instructions. Its performance characteri stics were determined by [facility] in a manner co nsistent with CLIA requirements. This test has not bee n cleared or approved by the U.S. Food and Drug Admin istration. Interpretation SEE COMMENT 02/13/2021 8:48 AM CDT DTL Comment: Therapeutic reference ranges have not be en established. Median (5th-95th percentile) peak and tr ough levels observed in clinical trials are shown. Non-valvular atrial fibrillation: Peak levels (2-4 hrs post dose): 2.5 mg (twice daily): 123 (69-221) ng/mL 5 mg (twice daily): 171 (91-321) ng/mL Trough levels (10-12 hrs post dose): 2.5 mg (twice daily): 79 (34-162) ng/mL 5 mg (twice daily): 103 (41-230) ng/mL Prevention and treatment of venous throm boembolism: Peak levels (2-4 hrs post dose): 2.5 mg (twice daily): 67 (30-153) ng/mL 5 mg (twice daily): 132 (59-302) ng/mL 10 mg (twice daily): 251 (111-572) ng/mL Trough levels (10-12 hrs post dose): 2.5 mg (twice daily): 32 (11-90) ng/mL 5 mg (twice daily): 63 (22-177) ng/mL 10 mg (twice daily): 120 (41-335) ng/mL Cautions SEE COMMENT 02/13/2021 8:48 AM CDT DTL Comment: This assay is not indicated for monitori ng low molecular weight heparin (LMWH) or unfractionated heparin (UFH). Presence of UFH and LMWH will falsely el evate apixaban anti-Xa levels. Specimen Anatomical Collection Method Collection Time Receive d Time (Source) Location / / Volume Laterality Blood (Blood, 02/13/2021 5:44 AM 02/14/20 7:08 Venous) CDT AM CDT Aleisha Vega M.D. LAB BLOOD NON ADD-ON Performing Organization Address City/[facility] Phon e Number [facility] - [address] [place], [place] [address] [facility] [place] [address] Laboratories-[facility] [place] [address] [facility] (ABNORMAL) Prothrombin Time (PT) (02/13/2021 5:44 AM CDT) [facility] Method Time Signature Prothrombin 13.8 (H) 9.4 - 12.5 02/13/2021 [facility] Time, P sec 5:57 AM CDT INR 1.3 0.9 - 1.1 02/13/2021 [facility] 5:57 AM CDT Comment: ----ADDITIONAL INFORMATION---- Standard intensity warfarin therapeutic range: 2.0 to 3.0 ?? High intensity warfarin therapeutic rang e: 2.5 to 3.5 Specimen Anatomical Collection Method Collection Time Receive d Time (Source) Location / / Volume Laterality Blood (Blood, 02/13/2021 5:44 AM 02/14/20 5:50 Venous) CDT AM CDT Aleisha Vega M.D. LAB BLOOD ADD-ON Performing Organization Address City/[facility] Code Phon e Number [facility] - [address] [place], [place] [address] [place] [address] Laboratories-[address] Type and Screen (with reflex Antibody ID) (02/13/2021 5:44 AM CDT) [facility] Method Time Signature ABORh A Neg Not 02/13/2021 STRM applicable 6:10 AM CDT Antibody Negative Negative 02/13/2021 STRM Screen 6:26 AM CDT Type & Screen 02/16/2021 02/13/2021 STRM Expiration 23:59 6:10 AM CDT Testing Ara DEFAULT 02/13/2021 STRM Location 5:51 AM CDT Specimen Anatomical Collection Method Collection Time Receive d Time (Source) Location / / Volume Laterality Blood (Blood, 02/13/2021 5:44 AM 02/14/20 5:51 Venous) CDT AM CDT Aleisha Vega M.D. LAB BLOOD BANK TEST ORDERABL ES Performing Organization Address City/State/ZIP Code Phon e Number [facility] - [address] [place], [place] [address] [facility] [place] [address] Laboratories-[facility] [place] [address] Basic Metabolic Panel (02/13/2021 5:44 AM CDT) P athologist Signature Potassium, P 3.8 3.6 - 5.2 02/13/2021 [facility] mmol/L 6:05 AM CDT Sodium, P 136 135 - 145 02/13/2021 [facility] mmol/L 6:05 AM CDT Chloride, P 104 98 - 107 02/13/2021 [facility] mmol/L 6:05 AM CDT Bicarbonate, P 24 22 - 29 02/13/2021 [facility] mmol/L 6:05 AM CDT Anion Gap, P 8 7 - 15 02/13/2021 [facility] 6:05 AM CDT BUN (Blood Urea 20 6 - 21 02/13/2021 [facility] Nitrogen), P mg/dL 6:05 AM CDT Creatinine, P 0.72 0.59 - 1.04 02/13/2021 [facility] mg/dL 6:05 AM CDT eGFR-Black/Afri >90 >=60 02/13/2021 STMA can [place] mL/min/BSA 6:05 AM CDT Comment: ----ADDITIONAL INFORMATION---- Estimated GFR calculated using the 2009 CKD_EPI creatinine equation. eGFR Non-Black/ >90 >=60 mL/min/BSA 02/13/2021 6:05 AM CDT STMA Comment: ----ADDITIONAL INFORMATION---- Estimated GFR calculated using the 2009 CKD_EPI creatinine equation. Calcium, Total, P 8.7 8.6 - 10.0 mg/dL 02/13/2021 6:05 AM CDT STMA Glucose, P 87 70 - 140 mg/dL 02/13/2021 6:05 AM CDT S TMA Specimen Anatomical Collection Method Collection Time Receive d Time (Source) Location / / Volume Laterality Blood (Blood, 02/13/2021 5:44 AM 02/14/20 5:50 Venous) CDT AM CDT Aleisha Vega M.D. LAB BLOOD ADD-ON Performing Organization Address City/[facility] Phon e Number [facility] - [address] [address] [address] (ABNORMAL) CBC without Differential (02/13/2021 5:44 AM CDT) Patholo gist Method Time Signature Hemoglobin 10.6 (L) 11.6 - 02/13/2021 STMA 15.0 g/dL 5:53 AM CDT Hematocrit 33.0 (L) 35.5 - 02/13/2021 STMA 44.9 % 5:53 AM CDT Erythrocytes 3.61 (L) 3.92 - 02/13/2021 STMA 5.13 5:53 AM CDT x10(12)/L MCV 91.4 78.2 - 02/13/2021 STMA 97.9 fL 5:53 AM CDT RBC Distrib Width 15.1 12.2 - 02/13/2021 STMA 16.1 % 5:53 AM CDT Platelet Count 295 157 - 371 02/13/2021 STMA x10(9)/L 5:53 AM CDT Leukocytes 6.1 3.4 - 9.6 02/13/2021 STMA x10(9)/L 5:53 AM CDT Specimen Anatomical Collection Method Collection Time Receive d Time (Source) Location / / Volume Laterality Blood (Blood, 02/13/2021 5:44 AM 02/14/20 21 5:50 Venous) CDT AM CDT Aleisha Vega M.D. LAB BLOOD ADD-ON Performing Organization Address City/State/ZIP Code Phon e Number [facility] - [address] [address] [address] ([place]ON) 2D WITH COLOR, LIMITED DOPPLER AND CONTRAST (02/11/2021 11:09 AM CDT) P athologist Signature Ejection 65 MC CV EIMS Fraction Anatomical Region Laterality Modality Echocardiography Specimen (Source) Anatomical Collection Method Collection Time Re ceived Time Location / / Volume Laterality 02/11/2021 8:30 AM CDT Impressions 02/11/2021 12:19 PM CDT PRE-SEDATION ASSESSMENT & CONSENT ??The goals, risks and alternatives to moderate sedation and the transesophageal echo were explained to the patient, questions were answered and consent was given to proceed. ??The physician review ed the patient's history, medication list, allergies, and review of systems, and the findings as documented in the rawhide bone roller and also performed a pertinent examination including a heart, airway and lung assessment. ??Mallampati Assessment: As documented in the RN pre-procedure asses sment. ??Sedation plan: Transesophageal echo - moderate sedation. ??ASA physical status score: C lass IV. ??The patient's identity and all needed equipment were confirmed and a final con firmatory pause was performed by the team immediately prior to start. ??Transesophageal echoca rdiogram performed at the request of the primary service correspondent. ??Adult probe inserted witho ut difficulty. ??LEFT VENTRICLE: ??Normal left ventricular chamber size. ??Estimated left ventricul ar ejection fraction 65 %. ??No regional wall motion abnormalities. ??RIGHT VENTRICLE: ??Norm al right ventricular chamber size. ??Normal right ventricular systolic function. ??ATRIA: ??Normal left atrial size. ??Normal left atrial appendage. No left atrial appendage thrombus. ??Le ft atrial appendage emptying velocity 80 cm/sec. ??Normal right atrial size. ??Normal right atrial appendage. ??CARDIAC VALVES: ??Trileaflet aortic valve. Mildly sclerotic aortic valve. ??Aortic valve strands. ??Trivial aortic valve regurgitation. Normal mitral valve. ??Trivial mitral va lve regurgitation. ??Normal pulmonary valve. ??Trivial pulmonary valve regurgitation. ??Normal tricuspid valve. ??Trivial tricuspid valve regurgitation. OTHER ECHO FINDINGS: ??Normal ascending aorta diameter. ??Normal aortic arch. ??Mild immobile atherosclerosis of the descending thorac ic aorta. ??Normally connected pulmonary veins. ??Normal pulmonary artery bifurcation. ??Normal s uperior vena cava. ??No bgnn-vo-zizlt shunt at atrial level. ??Agitated saline injection(s) pe rformed during sedation. ??Small npoaf-fb-rysj shunt at atrial level at rest and with Valsalva r elease. ??No pericardial effusion. ??PROCEDURE ??Procedure performed with appropriate level of moraima tion. ??A trained independent observer assisted with monitoring the patient's level of consci ousness and physiologic status throughout the procedure, see nursing documentation. ?? The patient tolerated the sedation and procedure well and was released awake, alert, and in go od condition. ??Transesophageal echocardiogram completed without complications. ??See Sedation Na rrator or other pertinent record in [facility] for additional procedure and sedation information. ??Ph ysician signature for procedural medications and patient discharge when DC criteria met. For the complete report, see the [employer] [employer] [facility]. Narrative 02/11/2021 12:19 PM CDT For the complete report, see the [employer] Documents. Final Impressions 1. Normal left ventricular chamber size; estimated ejection fraction 65%. 2. Normal right ventricular chamber size and systolic function. 3. Normal left atrial appendage without thrombus. Normal emptying velocity 80 cm/sec. 4. Mildly sclerotic aortic valve with ao rtic valve strands on ventricular surface (clip 30); appear unchanged compared to prior DEVON. Otherwise, normal valves for age. 5. 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 6. Patent foramen ovale with small right to left shunt at rest that augments with Valsalva release. Hyperdynamic atrial septum. 7. No intracardiac mass or thrombus iden tified. Procedure Note Venu Bland M.D. - 02/11/2021For matting of this note might be different from the original. For the complete report, see the [employer] Documents. Final Impressions 1. Normal left ventricular chamber size; estimated ejection fraction 65%. 2. Normal right ventricular chamber size and systolic function. 3. Normal left atrial appendage without thrombus. Normal emptying velocity 80 cm/sec. 4. Mildly sclerotic aortic valve with ao rtic valve strands on ventricular surface (clip 30); appear unchanged compared to prior DEVON. Otherwise, normal valves for age. 5. 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 6. Patent foramen ovale with small right to left shunt at rest that augments with Valsalva release. Hyperdynamic atrial septum. 7. No intracardiac mass or thrombus iden tified. Findings PRE-SEDATION ASSESSMENT & CONSENT The go als, risks and alternatives to moderate sedation and the transesophageal echo were explained to the patient, questions were answered and consent was given to proceed. The physician reviewed the patient's history, medication list, allergies, and review of systems, and the findings as documented in the rawhide bone roller and also performed a pertinent examination including a heart, airway and lung assessment. Mallampati Assessment: As documented in the RN pre-procedure asses sment. Sedation plan: Transesophageal echo - moderate sedation. ASA physical status score: Cla ss IV. The patient's identity and all needed equipment were confirmed and a final con firmatory pause was performed by the team immediately prior to start. Transesophageal echocard iogram performed at the request of the primary service correspondent. Adult probe inserted without difficulty. LEFT VENTRICLE: Normal left ventricular chamber size. Estimated left ventricular ejection fraction 65 %. No regional wall motion abnormalities. RIGHT VENTRICLE: Normal r ight ventricular chamber size. Normal right ventricular systolic function. ATRIA: No rmal left atrial size. Normal left atrial appendage. No left atrial appendage thrombus. Left atrial appendage emptying velocity 80 cm/sec. Normal right atrial size. Normal right atrial a ppendage. CARDIAC VALVES: Trileaflet aortic valve. Mildly sclerotic aortic valve. Aortic va lve strands. Trivial aortic valve regurgitation. Normal mitral valve. Trivial mitral valv e regurgitation. Normal pulmonary valve. Trivial pulmonary valve regurgitation. Normal tr icuspid valve. Trivial tricuspid valve regurgitation. OTHER ECHO FINDINGS: Normal ascending a efrain diameter. Normal aortic arch. Mild immobile atherosclerosis of the descending thorac ic aorta. Normally connected pulmonary veins. Normal pulmonary artery bifurcation. Normal sup erior vena cava. No rbaj-jn-tfktv shunt at atrial level. Agitated saline injection(s) perf ormed during sedation. Small oolpy-ng-xtkt shunt at atrial level at rest and with Valsalva r elease. No pericardial effusion. PROCEDURE Procedure performed with appropriate level of moraima tion. A trained independent observer assisted with monitoring the patient's level of consci ousness and physiologic status throughout the procedure, see nursing documentation. Th e patient tolerated the sedation and procedure well and was released awake, alert, and in go od condition. Transesophageal echocardiogram completed without complications. See Sedation Narr ator or other pertinent record in [facility] for additional procedure and sedation information. Phys ician signature for procedural medications and patient discharge when DC criteria met. For the complete report, see the [employer] Documents. Aleisha Vega M.D. CV ECHO PROCEDURES Bacteria / Mandi Culture, Blood #2 (02/11/2021 9:49 AM CDT) Patholo gist Method Time Signature Bacteria/Valerie No growth 02/16/2021 DTL da Culture, after 5 11:02 AM CDT Blood days of incubation. Specimen (Source) Anatomical Collection Method Collection Time Re ceived Time Location / / Volume Laterality Blood (Blood, 02/11/2021 9:49 02/11/2021 Peripheral Draw) AM CDT 10:18 AM CD T Comment: Specimen Source Site: Blood Narrative [facility] - 02/16/2021 11:02 AM CDT Received Bactec Peds bottle Laquita Malagon M.D. LAB MICROBIOLOGY - GENERAL O RDERABLES Performing Organization Address City/State/ZIP Code Phon e Number [facility] - [address] [place] [address] [address] [facility] [place] [address] Laboratories-[facility] [place] [address] (ABNORMAL) Apixaban, Anti-Xa, P (02/11/2021 9:48 AM CDT) athologist Signature Apixaban, 16 (H) <10 ng/mL 02/11/2021 DT Anti-Xa, P 10:59 AM CDT Comment: ----ADDITIONAL INFORMATION---- This test has been modified from the man ufacturer's instructions. Its performance characteri stics were determined by [facility] in a manner co nsistent with CLIA requirements. This test has not bee n cleared or approved by the U.S. Food and Drug Admin istration. Interpretation SEE COMMENT 02/11/2021 10:59 AM CDT DTL Comment: Therapeutic reference ranges have not be en established. Median (5th-95th percentile) peak and tr ough levels observed in clinical trials are shown. Non-valvular atrial fibrillation: Peak levels (2-4 hrs post dose): 2.5 mg (twice daily): 123 (69-221) ng/mL 5 mg (twice daily): 171 (91-321) ng/mL Trough levels (10-12 hrs post dose): 2.5 mg (twice daily): 79 (34-162) ng/mL 5 mg (twice daily): 103 (41-230) ng/mL Prevention and treatment of venous throm boembolism: Peak levels (2-4 hrs post dose): 2.5 mg (twice daily): 67 (30-153) ng/mL 5 mg (twice daily): 132 (59-302) ng/mL 10 mg (twice daily): 251 (111-572) ng/mL Trough levels (10-12 hrs post dose): 2.5 mg (twice daily): 32 (11-90) ng/mL 5 mg (twice daily): 63 (22-177) ng/mL 10 mg (twice daily): 120 (41-335) ng/mL Cautions SEE COMMENT 02/11/2021 10:59 AM CDT DTL Comment: This assay is not indicated for monitori ng low molecular weight heparin (LMWH) or unfractionated heparin (UFH). Presence of UFH and LMWH will falsely el evate apixaban anti-Xa levels. Specimen Anatomical Collection Method Collection Time Receive d Time (Source) Location / / Volume Laterality Blood (Blood, 02/11/2021 9:48 AM 02/12/20 21 Venous) CDT 10:17 AM CDT aLquita Malagon M.D. LAB BLOOD NON ADD-ON Performing Organization Address City/State/ZIP Code Phon e Number [facility] - [address] [place], [place] [address] [facility] [place] [address] Laboratories-[facility] [place] [address] Bacteria / Mandi Culture, Blood #1 (02/11/2021 9:48 AM CDT) [facility] Method Time Signature Bacteria/Valerie No growth 02/16/2021 DTL da Culture, after 5 11:02 AM CDT Blood days of incubation. Specimen (Source) Anatomical Collection Method Collection Time Re ceived Time Location / / Volume Laterality Blood (Blood, 02/11/2021 9:48 02/11/2021 Peripheral Draw) AM CDT 10:31 AM CD T Comment: Specimen Source Site: Blood Narrative [facility] - 02/16/2021 11:02 AM CDT Received Bactec Peds bottle Laquita Malagon M.D. LAB MICROBIOLOGY - GENERAL O RDERABLES Performing Organization Address [facility] Phon e Number [facility] - [address] [place], [place] [address] [address] [place] [address] Heparin Anti-Xa Assay (02/11/2021 1:56 AM CDT) P athologist Signature Heparin <0.10 IU/mL 02/11/2021 DT Anti-Xa, P 3:12 AM CDT Comment: UFH therapeutic range: ?? 0.30-0.70 IU/mL LMWH therapeutic range: 0.50-1.00 IU/mL 0.50-1.00 IU/mL for twice daily dosing ? ? 1.00-2.00 IU/mL for once daily dosing (sample obtained 4-6 hours following sub cutaneous injection) LMWH prophylactic range:0.10-0.30 IU/mL ----ADDITIONAL INFORMATION---- Heparin Anti-Xa is used to measure hepar in concentrations in patients receiving low molecular weig ht heparin (LMWH) or unfractionated heparin (UFH). Specimen Anatomical Collection Method Collection Time Receive d Time (Source) Location / / Volume Laterality Blood (Blood, 02/11/2021 1:56 AM 02/12/20 2:15 Venous) CDT AM CDT Aleisha Vega M.D. LAB BLOOD NON ADD-ON Performing Organization Address City/[facility] Code Phon e Number [facility] - [address] [place], [place] [address] [place] [address] Laboratories-[address] Interpretation of Outside MR Head (02/11/2021 1:26 [...] bilateral thalami (series 3 image 36), bilateral VICTIMS ADVOCATE CLERK/SPECIALIST 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 bilateral thalami (series 3 image 36), bilateral VICTIMS ADVOCATE CLERK/SPECIALIST 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 bilateral thalami (series 3 image 36), bilateral VICTIMS ADVOCATE CLERK/SPECIALIST 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 bilateral thalami (series 3 image 36), bilateral VICTIMS ADVOCATE CLERK/SPECIALIST 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 bilateral thalami (series 3 image 36), bilateral VICTIMS ADVOCATE CLERK/SPECIALIST 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 bilateral thalami (series 3 image 36), bilateral VICTIMS ADVOCATE CLERK/SPECIALIST 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 ane urysms are unchanged. Aleisha Vega M.D. IMG MRI PROCEDURES SARS Coronavirus 2, RNA, Rapid POC, V Asymptomatic (02/11/2021 12:48 AM CDT) [facility] Method Time Signature SARS Undetected Undetected 02/11/2021 DTLR Coronavirus-2 1:09 AM CDT , RNA, Rapid POC, V Comment: Negative for SARS-CoV-2. The [facility] COVID-19 test is a molecular shahzad t for SARS-CoV-2, the virus that causes COVID- 19. A Negative result means that the [facility] COV ID-19 test did not detect SARS-CoV-2 virus in your sample. [facility] COVID-19 test uses the [employer] nitoring System. This test has received Emergency Use Authorization (EUA) by the U.S. Food and Drug Administration (FDA) and is used per man ufacturer instructions. Performance characteristic s were verified by [facility] in a manner consistent with CLIA requirements. Fact sheets for this Emerg ency Use Authorization (EUA) can be found at the following links: Providers: https://[employer] ([email or web address]/prov iders.pdf Patients: [email or web address] ([email or web address]/olayinka ents.pdf SARS Coronavirus 2, Source Nasopharynx DEFAULT 02/11/2021 1:09 AM CDT DTLR Specimen Anatomical Collection Method Collection Time Receive d Time (Source) Location / / Volume Laterality Varies 02/11/2021 12:48 02/11/2021 (Nasopharynx) AM CDT 12:48 AM CDT Vidhi Vinson M.D. LAB MICROBIOLOGY - GENERAL O RDERABLES Performing Organization Address City/State/ZIP Code Phon e Number PERFORMING LABS, [place] [address] INTERFACE Ref Interface [address] [facility] DTLR Performing Labs, [place] [address] [facility] Prothrombin Time (PT) (02/11/2021 12:35 AM CDT) athologist Signature Prothrombin 11.4 9.4 - 12.5 02/11/2021 DTL Time, P sec 1:15 AM CDT INR 1.0 0.9 - 1.1 02/11/2021 DTL 1:15 AM CDT Comment: ----ADDITIONAL INFORMATION---- Standard intensity warfarin therapeutic range: 2.0 to 3.0 ?? High intensity warfarin therapeutic rang e: 2.5 to 3.5 Specimen Anatomical Collection Method Collection Time Receive d Time (Source) Location / / Volume Laterality Blood (Blood, 02/11/2021 12:35 02/11/2021 1:00 Venous) AM CDT AM CDT Aleisha Vega M.D. LAB BLOOD ADD-ON Performing Organization Address City/[facility] Code Phon e Number [facility] - [address] [place], [place] [address] [facility] [place] [address] Laboratories-[facility] [address] [facility] CBC without Differential (02/11/2021 12:35 AM CDT) athologist Signature Hemoglobin 12.2 11.6 - 02/11/2021 DTL 15.0 g/dL 1:07 AM CDT Hematocrit 39.1 35.5 - 02/11/2021 DTL 44.9 % 1:07 AM CDT Erythrocytes 4.28 3.92 - 02/11/2021 DTL 5.13 1:07 AM CDT x10(12)/L MCV 91.4 78.2 - 02/11/2021 DTL 97.9 fL 1:07 AM CDT RBC Distrib Width 14.9 12.2 - 02/11/2021 DTL 16.1 % 1:07 AM CDT Platelet Count 330 157 - 371 02/11/2021 DTL x10(9)/L 1:07 AM CDT Leukocytes 4.3 3.4 - 9.6 02/11/2021 DTL x10(9)/L 1:07 AM CDT Specimen Anatomical Collection Method Collection Time Receive d Time (Source) Location / / Volume Laterality Blood (Blood, 02/11/2021 12:35 02/11/2021 Venous) AM CDT 12:59 AM CDT Aleisha Vega M.D. LAB BLOOD ADD-ON Performing Organization Address City/State/ZIP Code Phon e Number [facility] - [address] [place], [place] [address] [facility] [place] [address] Laboratories-[facility] [place] [address] (ABNORMAL) Basic Metabolic Panel (02/11/2021 12:34 AM CDT) P athologist Signature Potassium, S 4.4 3.6 - 5.2 02/11/2021 DTL mmol/L 2:01 AM CDT Sodium, S 141 135 - 145 02/11/2021 DTL mmol/L 2:01 AM CDT Chloride, S 109 (H) 98 - 107 02/11/2021 DTL mmol/L 2:01 AM CDT Bicarbonate, S 19 (L) 22 - 29 02/11/2021 DTL mmol/L 2:01 AM CDT Anion Gap 13 7 - 15 02/11/2021 DTL 2:01 AM CDT BUN (Blood 12 6 - 21 02/11/2021 DTL Urea mg/dL 2:01 AM CDT Nitrogen), S Creatinine, S 0.58 (L) 0.59 - 02/11/2021 DTL 1.04 mg/dL 2:01 AM CDT eGFR-Non >90 >=60 02/11/2021 DTL Black/ mL/min/BSA 2:01 AM CDT [place] Comment: ----ADDITIONAL INFORMATION---- Estimated GFR calculated using the 2009 CKD_EPI creatinine equation. eGFR-Black/ >90 >=60 mL/min/BSA 2020 2:01 AM CDT DTL Comment: ----ADDITIONAL INFORMATION---- Estimated GFR calculated using the 2009 CKD_EPI creatinine equation. Calcium, Total, S 9.5 8.6 - 10.0 mg/dL 02/11/2021 2:01 AM CDT DTL Glucose, S 136 70 - 140 mg/dL 02/11/2021 2:01 AM CDT D TL Specimen Anatomical Collection Method Collection Time Receive d Time (Source) Location / / Volume Laterality Blood (Blood, 02/11/2021 12:34 02/11/2021 Venous) AM CDT 12:59 AM CDT Aleisha Vega M.D. LAB BLOOD ADD-ON Performing Organization Address City/State/ZIP Code Phon e Number [facility] - [address] [place], [place] [address] [place] [address] AST (Aspartate Aminotransferase) (02/11/2021 12:34 AM CDT) [facility] gist Method Time Signature Aspartate 15 8 - 43 02/11/2021 DTL Aminotransferase U/L 2:01 AM CDT (AST), S Specimen Anatomical Collection Method Collection Time Receive d Time (Source) Location / / Volume Laterality Blood (Blood, 02/11/2021 12:34 02/11/2021 Venous) AM CDT 12:59 AM CDT Aleisha Vega M.D. LAB BLOOD ADD-ON Performing Organization Address City/State/ZIP Code Phon e Number [facility] - [address] [place], [place] [address] [facility] [place] [address] [place] [address] [address] [facility] ALT (Alanine Aminotransferase) (02/11/2021 12:34 AM CDT) [facility] gist Method Time Signature Alanine 13 7 - 45 02/11/2021 DTL Aminotransferase U/L 2:01 AM CDT (ALT), S Specimen Anatomical Collection Method Collection Time Receive d Time (Source) Location / / Volume Laterality Blood (Blood, 02/11/2021 12:34 02/11/2021 Venous) AM CDT 12:59 AM CDT Aleisha Vega M.D. LAB BLOOD ADD-ON Performing Organization Address City/State/ZIP Code Phon e Number [facility] - [address] [place], [place] [address] [facility] [place] [address] Laboratories-[facility] [address] [facility] ECG 12 Lead (02/10/2021 11:47 PM CDT) P athologist Signature Ventricular Rate 63 BPM MUSE ECG/Min ID Interval 178 ms MUSE QRSD Interval 96 ms MUSE QT Interval 456 ms MUSE QTC Interval 466 ms MUSE P [place] 54 degrees MUSE R [place] -15 degrees MUSE T Wave [place] 21 degrees MUSE Specimen Anatomical Collection Method Collection Time Receive d Time (Source) Location / / Volume Laterality 02/10/2021 11:47 02/11/2021 6:34 PM CDT AM CDT Impressions MUSE - 02/11/2021 6:34 AM CDT Normal sinus rhythm Low anterior forces Nonspecific ST abnormality When compared with ECG of 31-JAN-2021 23 :35, No significant change was found Reviewed by SANDRINE Mata Narrative This result has an attachment that is no t available. Procedure Note Chung Gonzalez M.D. - 02/11/2021Forma tting of this note might be different from the original. IMPRESSION: Normal sinus rhythm Low anterior forces Nonspecific ST abnormality When compared with ECG of 31-JAN-2021 23 :35, No significant change was found Reviewed by SANDRINE Mata Aleisha Vega M.D. 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 Stroke (HCC) Deficit Cognitive Communication Decline Functional Status Debility Abnormal Gait Non Orthopedic Chronic Pain Syndrome Fibromyalgia Gastric Bypass Status Post Nicotine Dependence Cigarettes Thrombosis Arterial (HCC) Patent Foramen [place]vale (HCC) Aneurysm Cerebral Unruptured (HCC) Stroke Cerebrovascular Accident Personal History Ataxia From Stroke Cerebrovascular Accid ent Dissection Vertebral Artery (HCC) Anxiety Generalized Disorder Cervical Spine Disorder Nicotine Dependence Unspecified Opioid Moderate Or Severe Use Disorder ( Dependence) Uncomplicated (HCC) Bipolar II Disorder (HCC) documented in this encounter Admitting Diagnoses Diagnosis Stroke (HCC) documented in this encounter Administered Medications Inactive Administered Medications - up to 3 most recent administrations Medication Order MAR Action Action Date Dose Rate Site acetaminophen suppository 650 mg (TYLENO L) 650 mg, rectal, Every 4 hours PRN, mild pain or score 1-3 of 10, moderate pain or score 4-6 of 10, fever, Starting on Tue02/10/21 at 2305, Administer if unable to give PO for pain greater than comfort goal or oral tem perature greater than 38 degrees Celsius. acetaminophen tablet 650 mg (TYLENOL) Given 02/17/2021 1:36 PM CDT 650 mg 650 mg, oral, Every 4 hours PRN, mild pain or score 1-3 of 10, moderate pain or score 4-6 of 10, fever, Starting on Tue02/10/21 at 2305, Administer for pain greater than comfort goal or oral temperature greater than 38 degrees Celsius. Given 02/17/2021 5:16 AM CDT 650 mg Given 02/16/2021 9:10 PM CDT 650 mg acetaminophen tablet 650 mg (TYLENOL) 650 mg, gastric tube, Every 4 hours PRN, mild pain or score 1-3 of 10, moderate pain or score 4-6 of 10, fever, Starting on Tue 1 at 2305, Administer for pain greater than comfort goal or oral t emperature greater than 38 degrees Celsius. apixaban tablet 5 mg (ELIQUIS) Given 02/14/2021 8:32 AM CDT 5 mg 5 mg, oral, 2 times daily, First dose on Tue02/11/21 at 0900 Given 02/13/2021 9:04 PM CDT 5 mg Given 02/13/2021 9:27 AM CDT 5 mg aspirin tablet 325 mg Given 02/17/2021 10:01 AM CDT 325 mg 325 mg, oral, Daily, First dose on Tue02/11/21 at 0900 Given 02/16/2021 8:03 AM CDT 325 mg Given 02/15/2021 8:13 AM CDT 325 mg atorvastatin tablet 80 mg (LIPITOR) Given 02/16/2021 9:10 PM CDT 80 mg 80 mg, oral, Daily at bedtime, First dose (after last modification) on Tue02/11/21 at 2100 Given 02/15/2021 9:04 PM CDT 80 mg Given 02/14/2021 9:00 PM CDT [address] tablet 10 mg (DULCOLAX) 10 mg, oral, 2 times daily PRN, constipation, Starting on Tue02/10/21 at 2305, Suppository is the preference. Swallow w hole. Do NOT crush, chew, or split tablet. bisacodyL suppository 10 mg (DULCOLAX) 10 mg, rectal, 2 times daily PRN, consti pation, Starting on Tue02/10/21 at 2305, Suppository is the preference. buPROPion XL 24 hr tablet 150 mg (WELLBUTRIN Given 10:01 AM CDT 150 mg XL) 150 mg, oral, Daily, First dose on Tue02/11/21 at 1600, Swallow whole. Do NOT crush, chew, or split tablet. Given 02/16/2021 2:47 PM CDT 150 mg Given 02/15/2021 8:12 AM CDT 150 mg calcium carbonate chewable tablet Given 02/11/2021 7:5 1 PM CDT 200 mg of calcium 200 mg of calcium (TUMS) 200 mg of calcium, oral, Daily PRN, heartburn, indigestion, Starting on Tue02/11/21 at 1944, Doses listed are in mg of elemental calcium. Take with food. 500 mg calcium carbonate contains 200 mg of elemental calcium. calcium carbonate chewable tablet Given 02/17/2021 3:0 1 PM CDT 400 mg of calcium 400 mg of calcium (TUMS) 400 mg of calcium, oral, 3 times daily PRN, heartburn, indigestion, Starting on Tue02/13/21 at 1000, Doses listed are in mg of elemental calcium. Take with food. 500 mg calcium carbonate contains 200 mg of elemental calcium. Given 02/17/2021 5:16 AM CDT 400 mg of calcium Given 02/14/2021 9:06 PM CDT 400 mg of calcium carboxymethylcellulose 0.5 % ophthalmic Given 02/16/2021 6:21 AM CDT 2 drops solution 2 drop (REFRESH PLUS) 2 drop, both eyes, 3 times daily PRN, dry eyes, Starting on Tue02/16/21 at 0604 cholecalciferol (vitamin D3) tablet 25 m cg Given 02/17/2021 10:02 AM CDT 25 mcg 25 mcg, oral, Daily, First dose on Tue02/11/21 at 0900, cholecalciferol (vitamin D3) orderable was interchanged for cholecalciferol (vitamin D3) tablet/capsule Given 02/16/2021 2:47 PM CDT 25 mcg Given 02/15/2021 8:12 AM CDT 25 mcg clopidogreL tablet 600 mg (PLAVIX) Given 02/15/2021 9:04 PM CDT 600 mg 600 mg, oral, Once, On Tue02/15/21 at 2100, For 1 dose diazePAM tablet 10 mg (VALIUM) Given 02/13/2021 9:05 PM CDT 10 mg 10 mg, oral, 2 times daily, First dose on Tue02/11/21 at 0900 Given 02/13/2021 9:28 AM CDT 10 mg Given 02/12/2021 8:28 PM CDT 10 mg diazePAM tablet 10 mg (VALIUM) Given 02/13/2021 2:20 PM CDT 10 mg 10 mg, oral, Once, On Tue02/13/21 at 1400, For 1 dose diazePAM tablet 5 mg (VALIUM) 5 mg, oral, 2 times daily PRN, anxiety, sleep, Startin g on Tue02/14/21 at 0815 enoxaparin injection 80 mg Given 02/15/2021 8:12 AM CDT 80 mg Right Upper Abdomen (LOVENOX) 80 mg (rounded from 82.1 mg = 1 mg/kg ? 82.1 kg Dosing weight), subcutaneous, 2 times daily, First dose on Tue02/14/21 at 2100 Given 02/14/2021 9:00 PM CDT 80 mg Right Lower Abdomen fentaNYL injection (SUBLIMAZE) Given 02/11/2021 10:52 AM 25 mcg Code/trauma/sedation medication, Starting on CDT Tue02/11/21 at 1045 Given 02/11/2021 10:48 AM CDT 50 mcg Given 02/11/2021 10:45 AM CDT 50 mcg FLUoxetine capsule 80 mg (PROzac) Given 02/17/2021 10:16 AM CDT 80 mg 80 mg, oral, Daily, First dose on Tue02/11/21 at 0900, FLUoxetine orderable was interchanged for FLUoxetine tablet/capsule Given 02/16/2021 2:47 PM CDT 80 mg Given 02/15/2021 8:13 AM CDT 80 mg fluticasone furoate 100 mcg/actuation Given 02/17/2021 10:02 AM CDT 1 puff inhaler 1 puff (ARNUITY ELLIPTA) 1 puff (100 mcg), inhalation, Daily, First dose on Tue02/11/21 at 0900, fluticasone furoate 100 mcg was interchanged for fluticasone MDI 44 mcg Given 02/15/2021 8:12 AM CDT 1 puff Given 02/14/2021 8:32 AM CDT 1 puff gadobutrol injection 0.01-30 mL (GADAVIS T) Given 02/13/2021 3:48 PM CDT 9 mL 0.01-30 mL, intravenous, Once in imaging, contrast, Starting on Tue02/13/21 at 1605, For 1 dose, Imaging Protocol Orders, Dose per Radiant Medication Guidelines heparin (porcine) 100 New Bag 02/17/2021 5:34 AM CDT 14 Units/kg/h r 11.5 mL/hr Units/mL in NaCl 0.45% 250 mL infusion 14 Units/kg/hr ? 82.1 kg Dosing weight (11.494 mL/hr, rounded to 11.5 mL/hr), intravenous, Continuous, Starting on Tue02/16/21 at 1430, For 24 hours, 25,000 Units in 250 mL, Pharmacist to Dose Intensity Type: Low, aPTT: less than 40: No loading dose; Continue infusion; Increase IV dose by 4 units/kg/hr; Repeat aPTT in 6 hours, aPTT: 40-49: No loading dose; Continue infusion; Increase IV dose by 2 units/kg/hr; Repeat aPTT in 6 hours, aPTT: 50-80: No loading dose; Continue infusion; No change in rate; Repeat heparin aPTT in 6 hours. If 2 consecutive results within therapeutic range, re-check next AM, aPTT: 81-90: No loading dose; Continue infusion; Decrease IV dose by 1 unit/kg/hour; Repeat aPTT in 6 hours, aPTT: 91-120: No loading dose; Stop infusion for 1 hour; Decrease IV dose by 2 units/kg/hr; Repeat aPTT 6 hours after heparin resumed, aPTT: greater than 120: No loading dose; Stop infusion for 2 hours; Decrease IV dose by 4 units/kg/hr; Repeat aPTT 6 hours after heparin resumed Rate/Dose Change 02/17/2021 1:30 AM CDT 14 Units/kg/hr 11.5 mL/hr New Bag 02/16/2021 2:53 PM CDT 12 Units/kg/hr 9.85 mL/hr heparin (porcine) Given 02/15/2021 9:06 PM CDT 5,000 Units Right Lower injection 5,000 Units Abdomen 5,000 Units, subcutaneous, Every 8 hours scheduled, First dose on Tue02/15/21 at 2200, For 1 dose hydrALAZINE tablet 25 mg (APRESOLINE) 25 mg, oral, Every 6 hours PRN, BP >220/110, Starting on Tue02/10/21 at 2341 iohexoL 300 mg iodine/mL solution (OMNIP AQUE) Given 02/16/2021 10:24 AM 210 mL Code/trauma/sedation medication, Starting on CDT Tue02/16/21 at 1024 iohexoL 350 mg iodine/mL solution 1-200 mL Given 02/13/2021 5:37 AM CDT 100 mL (OMNIPAQUE) 1-200 mL, intravenous, Once in imaging, contrast, Starting on Tue02/13/21 at 0536, For 1 dose, Imaging Protocol Orders, Dose per Radiant Medication Guidelines iohexoL 350 mg iodine/mL solution 1-200 mL Given 02/17/2021 11:02 AM CDT 100 mL (OMNIPAQUE) 1-200 mL, intravenous, Once in imaging, contrast, Starting on Tue02/17/21 at 1053, For 1 dose, Imaging Protocol Orders, Dose per Radiant Medication Guidelines lamoTRIgine tablet 200 mg (LaMICtal) Given 02/17/2021 10:01 AM CDT 200 mg 200 mg, oral, 2 times daily, First dose on Tue02/11/21 at 0900 Given 02/16/2021 9:12 PM CDT 200 mg Given 02/15/2021 9:04 PM CDT 200 mg lidocaine 10 mg/mL (1 %) injection (XYLO VILLA) Given 02/16/2021 9:32 AM CDT 2 mL Code/trauma/sedation medication, Starting on Tue02/16/21 at 0849 Given 02/16/2021 8:49 AM CDT 3 mL lidocaine 5 % ointment 1 application Given 02/11/2021 10:29 AM CDT 1 application (XYLOCAINE) 1 application, mouth/throat, As needed, mild pain or score 1-3 of 10, See protocol, Starting on Tue02/11/21 at 1021, MAX of 20 g of ointment/day magnesium oxide tablet 200 mg (MAG-OX) Given 02/17/2021 7:45 AM CDT 200 mg 200 mg, oral, Daily before breakfast, First dose on Clementine 02/12/21 at 0700, magnesium oxide 200 mg daily was interchanged for magnesium gluconate 250 mg daily Given 02/16/2021 6:00 AM CDT 200 mg Given 02/15/2021 6:24 AM CDT 200 mg meclizine tablet 25 mg (ANTIVERT) Given 02/12/2021 8:03 AM CDT 25 mg 25 mg, oral, 3 times daily PRN, dizziness, nausea, Starting on Tue02/11/21 at 1956 Given 02/11/2021 8:30 PM CDT 25 mg meclizine tablet 25 mg (ANTIVERT) Given 02/14/2021 5:50 PM CDT 25 mg 25 mg, oral, Every 6 hours PRN, dizziness, nausea, vertigo, Starting on Clementine 02/12/21 at 1400 Given 02/14/2021 10:19 AM CDT 25 mg Given 02/13/2021 12:42 PM CDT 25 mg midazolam (PF) injection (VERSED) Given 02/11/2021 10:59 AM CDT 1 mg Code/trauma/sedation medication, Starting on Tue02/11/21 at 1045 Given 02/11/2021 10:54 AM CDT 1 mg Given 02/11/2021 10:52 AM CDT 1 mg NaCl 0.9% bacteriostatic 0.9 % injection 30 Given 02/11/2021 11:05 AM CDT 20 mL mL 30 mL, intravenous, As needed, for agitated saline (bubble) studies, Starting on Tue02/11/21 at 1021, See protocol naloxone injection 0.2 mg (NARCAN) 0.2 mg, intravenous, As needed, respirat ory depression, Starting on Tue02/11/21 at 1410, For RASS Score -4 or less, respiratory rate of l ess than 8 breaths/min. Notify provider/service and rapid response team (if av ailable at institution). nicotine 21 mg/24 hr 1 Medication Applied 02/15/2021 10:48 AM 1 patch Right Shoulder patch (NICODERM CQ) CDT 1 patch, transdermal, Administer over 24 Hours, Daily PRN, nicotine cravings, Starting on Tue02/10/21 at 2305 Medication Applied 02/14/2021 9:58 AM CDT 1 patch Left Shoulder nicotine polacrilex gum 4 mg (NICORETTE) Given 02/13/2021 11:29 AM CDT 4 mg 4 mg, buccal, Every 4 hours PRN, smoking cessation, Starting on Tue02/12/21 at 1615, Chew gum slowly until it tingles, then park it between your cheek and gum; when tingle disappears, Repeat process until most of the tingle is gone (about 30 min). ondansetron ODT disintegrating tablet 4 mg Given 02/17/2021 5:16 AM CDT 4 mg (ZOFRAN-ODT) 4 mg, oral, Every 8 hours PRN, nausea, vomiting, Starting on Tue02/11/21 at 1958, When splitting ODT at bedside, handle with gloves and a pill splitter to prevent moisture contact. Given 02/12/2021 6:47 PM CDT 4 mg oxyCODONE IR tablet 10 mg (ROXICODONE) Given 02/14/2021 8:35 AM CDT 10 mg 10 mg, oral, Every 6 hours PRN, moderate pain or score 4-6 of 10, severe pain or score 7-10 of 10, Starting on Tue02/11/21 at 1505 Given 02/13/2021 9:12 PM CDT 10 mg Given 02/13/2021 9:27 AM CDT 10 mg oxyCODONE IR tablet 10 mg (ROXICODONE) Given 02/15/2021 8:13 AM CDT 10 mg 10 mg, oral, Every 6 hours, First dose on 02/14/21 at 1400 Given 02/15/2021 2:02 AM CDT 10 mg Given 02/14/2021 8:02 PM CDT 10 mg oxyCODONE IR tablet 10 mg (ROXICODONE) Given 02/17/2021 1:37 PM CDT 10 mg 10 mg, oral, Every 6 hours, First dose (after last modification) on Tue02/15/21 at 1400 Given 02/17/2021 7:45 AM CDT 10 mg Given 02/17/2021 1:41 AM CDT 10 mg oxyCODONE IR tablet 5 mg (ROXICODONE) Given 02/11/2021 2:31 PM CDT 5 mg 5 mg, oral, Every 6 hours PRN, moderate pain or score 4-6 of 10, severe pain or score 7-10 of 10, Starting on Tue02/11/21 at 1410 oxyCODONE IR tablet 5 mg (ROXICODONE) Given 02/14/2021 3:32 AM CDT 5 mg 5 mg, oral, Once, On Tue02/14/21 at 0330, For [address] tablet 40 mg (PROTONIX) Given 02/17/2021 7:45 AM CDT 40 mg 40 mg, oral, Daily before breakfast, First dose on Tue02/11/21 at 0700, pantoprazole 40 mg oral daily was interchanged for esomeprazole 20 or 40 mg oral daily Swallow whole. Do NOT crush, chew, or split tablet. Given 02/16/2021 6:00 AM CDT 40 mg Given 02/15/2021 6:24 AM CDT 40 mg pregabalin capsule 300 mg (LYRICA) Given 02/17/2021 10:01 AM CDT 300 mg 300 mg, oral, Daily, First dose (after last modification) on Tue02/11/21 at 0900 Given 02/16/2021 2:47 PM CDT 300 mg Given 02/15/2021 8:12 AM CDT 300 mg pregabalin capsule 600 mg (LYRICA) Given 02/16/2021 9:11 PM CDT 600 mg 600 mg, oral, Daily at bedtime, First dose on Tue02/11/21 at 2100 Given 02/15/2021 9:04 PM CDT 600 mg Given 02/14/2021 8:59 PM CDT 600 mg QUEtiapine tablet 50 mg (SEROquel) Given 02/16/2021 9:11 PM CDT 50 mg 50 mg, oral, Daily at bedtime, First dose on Tue02/11/21 at 2100 Given 02/15/2021 9:04 PM CDT 50 mg Given 02/14/2021 8:59 PM CDT 50 mg sennosides-docusate sodium 8.6-50 mg per Given 021 10:01 AM CDT 2 tablets tablet 2 tablet (SENOKOT-S) 2 tablet, oral, Daily, First dose on Tue02/11/21 at 0900, While on opioids. Do not give if patient has diarrhea. Given 02/15/2021 8:12 AM CDT 2 tablets Given 02/14/2021 8:32 AM CDT 2 tablets sennosides-docusate sodium 8.6-50 mg per tablet 2 tablet (SENOKOT-S) 2 tablet, gastric tube, Daily, First dos e on Tue02/11/21 at 0900, While on opioids. Do not give if patient has diarrhea. sodium chloride (PF) 0.9 % injection 1-1 00 mL Given 02/13/2021 5:37 AM CDT 35 mL 1-100 mL, intravenous, Once, On Tue02/13/21 at 0545, For 1 dose, Imaging Protocol Orders sodium chloride (PF) 0.9 % injection 1-1 00 mL Given 02/13/2021 3:48 PM CDT 20 mL 1-100 mL, intravenous, Once, On Tue02/13/21 at 1615, For 1 dose, Imaging Protocol Orders sodium chloride (PF) 0.9 % injection 1-1 00 mL Given 02/17/2021 11:02 AM CDT 35 mL 1-100 mL, intravenous, Once, On Tue02/17/21 at 1100, For 1 dose, Imaging Protocol Orders tiZANidine tablet 2 mg (ZANAFLEX) Given 02/14/2021 9:24 PM CDT 2 mg 2 mg, oral, Every 8 hours PRN, muscle spasms, Starting on Tue02/11/21 at 1537 Given 02/14/2021 6:45 AM CDT 2 mg Given 02/11/2021 4:47 PM CDT 2 mg warfarin tablet 4 mg (COUMADIN) Given 02/14/2021 4:09 PM CDT 4 mg 4 mg, oral, Once, On Tue02/14/21 at 1700, For 1 dose, HAZARDOUS - Handle with care. Swallow whole. Do NOT chew or split tablet. May crush using the [employer] system. zonisamide capsule 300 mg (ZONEGRAN) Given 02/17/2021 10:01 AM CDT 300 mg 300 mg, oral, 2 times daily, First dose on Tue02/11/21 at 0900, Swallow whole. Do NOT crush, chew or open capsule. Given 02/16/2021 9:11 PM CDT 300 mg Given 02/15/2021 9:04 PM CDT 300 mg documented in this encounter Active and Recently Administered Medications Times are shown in CDT. Scheduled Medication Order 02/15/2021 02/16/2021 02/17/2021 aspirin tablet 325 mg 0813 (Given - Provider: Tiffanie Caceres R.N.) 0803 (Given - Provider: Bettie Jacobson RBetsy) 1001 (Given - Provider: Sukhdeep Simms R.N. - Comment: late getting to patient) 325 mg, oral, Daily, First dose on Tue02/11/21 at 0900 atorvastatin tablet 80 mg (LIPITOR) 2103 (Given - Prov ider: Mavis Kenyon RBetsy) 2109 (Given - Provider: Kristie Duron R.N.) 80 mg, oral, Daily at bedtime, First dos e (after last modification) on Tue02/11/21 at 2100 buPROPion XL 24 hr tablet 150 mg (WELLBUTRIN XL) 0812 (Given - Provider: Tiffanie Caceres R.N.) 1447 (Given - Provider: Jane Reyes R.N.) 1001 (Given - Provider: Sukhdeep Simms R.N. - Comment: late getting to patient) 150 mg, oral, Daily, First dose on Tue at 1600, Swallow whole. Do NOT crush, chew, or split tablet. cholecalciferol (vitamin D3) tablet 25 mcg 0812 (Given - Provider: Tiffanie Caceres R.N.) 1447 (Given - Provider: Jane Reyes R.N.) 1002 (Given - Provider: Sukhdeep Simms R.N. - Comment: late getting to patient) 25 mcg, oral, Daily, First dose on Tue at 0900, cholecalciferol (vitamin D3) orderable was interchanged for cholecalciferol (vitamin D3) tablet/capsule clopidogreL tablet 600 mg (PLAVIX) (COMPLETED) 2103 (Geronimo peoplesen - Provider: Mavis Kenyon R.N.) 600 mg, oral, Once, On 02/15/21 at 2100, For 1 dose enoxaparin injection 80 mg (LOVENOX) (CANCELED) 811 ( Given - Provider: Tiffanie Caceres R.N.) 80 mg (rounded from 82.1 mg = 1 mg/kg ? 82.1 kg Dosing weight), subcutaneous, 2 times daily, First dose on 02/14/21 at 2100 FLUoxetine capsule 80 mg (PROzac) 0813 (Given - Provider: Shanta Caceres R.N.) 144 (Given - Provider: Jane Reyes R.N.) 1016 (Given - Provider: Sukhdeep Simms R.N.) 80 mg, oral, Daily, First dose on Tue at 0900, FLUoxetine orderable was interchanged for FLUoxetine tablet/capsule fluticasone furoate 100 mcg/actuation inhaler 1 puff ( ARNUITY ELLIPTA) 811 (Given - Provider: Tiffanie Caceres R.N.) 1500 (Not Given - Provider: Jane Reyes R.N. - Reason: Patient not available) 1002 (Given - Provider: Sukhdeep Simms R.N. - Comment: late getting to patient) 1 puff (100 mcg), inhalation, Daily, Fir st dose on Tue02/11/21 at 0900, fluticasone furoate 100 mcg was interchanged for fluticasone MDI 44 mcg heparin (porcine) injection 5,000 Units (COMPLETED) 18 05 (Given - Provider: Mavis Kenyon R.N.) 5,000 Units, subcutaneous, Every 8 hours scheduled, First dose on 02/15/21 at 2200, For 1 dose lamoTRIgine tablet 200 mg (LaMICtal) 08 (Given - Pro vider: Tiffanie Caceres R.N.)2103 (Given - Provider: Mavis Kenyon R.N.) 1500 (Not Given - Provider: Jane Reyes R.N. - Reason: Patient not available)2111 (Given - Provider: Kristie Duron R.N.) 1001 (Given - Provider: Sukhdeep Simms R.N. - Comment: late getting to patient) 200 mg, oral, 2 times daily, First dose on Tue02/11/21 at 0900 magnesium oxide tablet 200 mg (MAG-OX) 0624 (Given - P rovider: Lauren Lauren R.N.) 0600 (Given - Provider: Lauren Lauren R.N.) 0745 (Given - Provider: Sukhdeep Simms R.N.) 200 mg, oral, Daily before breakfast, Fi rst dose on Clementine 02/12/21 at 0700, magnesium oxide 200 mg daily was interchanged for magnesium gluconate 250 mg daily oxyCODONE IR tablet 10 mg (ROXICODONE) (CANCELED) 0202 (Given - Provider: Lauren Lauren R.N.)0813 (Given - Provider: Tiffanie Caceres R.N.) 10 mg, oral, Every 6 hours, First dose on 02/14/21 at 1400 oxyCODONE IR tablet 10 mg (ROXICODONE) 1345 (Given - P rovider: Tiffanie Caceres R.N.)2001 (Given - Provider: Lauren Lauren R.N.) 021 (Given - Provider: Lauren Lauren R.N.)0727 (Given - Provider: Jane Reyes R.N.)1447 (Given - Provider: Jane Reyes R.N.)211 (Given - Provider: Kristie Duron R.N. - Comment: cluster cares) 0141 (Given - Provider: Karma Cervantes R.N.)0745 (Given - Provider: Sukhdeep Simms R.N.)1337 (Given - Provider: Sukhdeep Simms R.N.) 10 mg, oral, Every 6 hours, First dose ( after last modification) on 02/15/21 at [address] tablet 40 mg (PROTONIX) 0624 (Given - Provider: Lauren Lauren R.N.) 0600 (Given - Provider: Lauren Lauren R.N.) 0745 (Given - Provider: Sukhdeep Simms R.N.) 40 mg, oral, Daily before breakfast, Fir st dose on Tue02/11/21 at 0700, pantoprazole 40 mg oral daily was interchanged for esomeprazole 20 or 40 mg oral daily Swallow whole. Do NOT crush, chew, or split tablet. pregabalin capsule 300 mg (LYRICA) 0812 (Given - Provi marquis: Tiffanie Caceres R.N.) 1447 (Given - Provider: Jane Reyes R.N.) 1001 (Given - Provider: Sukhdeep Simms R.N. - Comment: late getting to patient) 300 mg, oral, Daily, First dose (after l ast modification) on Tue02/11/21 at 0900 pregabalin capsule 600 mg (LYRICA) 2103 (Given - Provider: Ricky Kenyon R.N.) 2110 (Given - Provider: Kristie Duron R.N.) 600 mg, oral, Daily at bedtime, First dose on Tue02/11/21 at 210 0 QUEtiapine tablet 50 mg (SEROquel) 2103 (Given - Provider: Ricky Kenyon R.N.) 2110 (Given - Provider: Kristie Duron R.N.) 50 mg, oral, Daily at bedtime, First dose on Tue02/11/21 at 2100 sennosides-docusate sodium 8.6-50 mg per tablet 2 tablet (SENOKOT-S)(Linked Group 1) 0812 (Given - Provider: Tiffanie Caceres R.N.) 1501 (No t Given - Provider: Jane Reyes R.N. - Reason: Patient not available) 1001 (Given - Provider: Sukhdeep Simms R.N. - Comment: late getting to patient) 2 tablet, oral, Daily, First dose on Tue02/11/21 at 0900, While on opioids. Do not give if patient has diarrhea. sennosides-docusate sodium 8.6-50 mg per tablet 2 tablet (SENOKOT-S)(Linked Group 1) 0812 (See Alternative - Provider: Tiffanie Caceres R.N. ) 1501 (See Alternative - Provider: Jane Reyes R.N.) 1001 (See Alternative - Provider: Sukhdeep Simms R.N.) 2 tablet, gastric tube, Daily, First dos e on Tue02/11/21 at 0900, While on opioids. Do not give if patient has diarrhea. sodium chloride (PF) 0.9 % injection 1-100 mL (COMPLETED) 1102 (Given - Provider: Sharifa SalehNBritton) 1-100 mL, intravenous, Once, On 02/17 at 1100, For 1 dose, Imaging Protocol Orders zonisamide capsule 300 mg (ZONEGRAN) 0812 (Given - Pro vider: Tiffanie Caceres R.N.)2104 (Given - Provider: Mavis Kenyon R.N.) 1500 (Not Given - Provider: Jane Reyes R.N. - Reason: Patient not available)211 (Given - Provider: Kristie Duron R.N.) 1001 (Given - Provider: Sukhdeep Simms R.N. - Comment: late getting to patient) 300 mg, oral, 2 times daily, First dose on Tue02/11/21 at 0900, Swallow whole. Do NOT crush, chew or open capsule. Continuous Medication Order 02/15/2021 02/16/2021 02/17/2021 heparin (porcine) 100 Units/mL in NaCl 0.45% 250 mL infusion (CANCELED) 1453 (New Bag - Provider: Jane Reyes RBetsy)2358 (Handoff - Provider: Karma Cervantes RBetsy) 0130 (Rate/Dose Change - Provider: Lesley Cervantes R.N.)0534 (New Bag - Provider: Sharifa NguyenNBritton)1100 (Stopped - Provider: Sharifa AgrawalNBritton) 14 Units/kg/hr ? 82.1 kg Dosing weight (11.494 mL/hr, rounded to 11.5 mL/hr), intravenous, Continuous, Starting on Tue02/16/21 at 1430, For 24 hours, 25,000 Units in 250 mL, Pharmacist to Dose Intensit y Type: Low, aPTT: less than 40: No load ing dose; Continue infusion; Increase IV dose by 4 units/kg/hr; Repeat aPTT in 6 hours, aPTT: 40-49: No loading dose; Continue infusion; Increase IV dose by 2 uni ts/kg/hr; Repeat aPTT in 6 hours, aPTT: 50-80: No loading dose; Continue infusion; No change in rate; Repeat heparin aPTT in 6 hours. If 2 consecutive results within therapeutic range, re-check next AM, aPTT: 81-90: No loading dose; Continue infusion; Decrease IV dose by 1 unit/kg/hour; Repeat aPTT in 6 hours, aPTT: 91-120: No loading dose; Stop infusion for 1 hour; Decrease IV dose by 2 units/kg/hr; Repeat aPTT 6 hours after heparin resume d, aPTT: greater than 120: No loading dose; Stop infusion for 2 hours; Decrease IV dose by 4 units/kg/hr; Repeat aPTT 6 hours after heparin resumed PRN Medication Order 02/15/2021 02/16/2021 02/17/2021 acetaminophen suppository 650 mg (TYLENOL)(Linked Grou p 2) 0202 (See Alternative - Provider: Lauren Lauren RRebekah.)0813 (See Alternative - Provider: Tiffanie Caceres RRebekah.)1349 (See Alternative - Provider: Tiffanie Caceres R.N.)2001 (See Alternative - Provider: Lauren Lauren R.N.) 0211 (See Alternative - Provider: Lauren Lauren R.N.)0727 (See Alternative - Provider: Jane Reyes R.N.)1446 (See Alternative - Provider: Jane Reyes RRebekah.)1834 (See Alternative - Provider: Kristie Duron RBrittonN.) 0516 (See Alternative - Provider: Karma Cervantes RBrittonN.)1023 (See Alternative - Provider: Claire Root)1336 (See Alternative - Provider: Sukhdeep Simms RBrittonNBritton) 650 mg, rectal, Every 4 hours PRN, mild pain or score 1-3 of 10, moderate pain or score 4-6 of 10, fever, Starting on Tue02/10/21 at 2305, Administer if unable to give PO for pain greater than comfort g 2109 (See A lternative - Provider: Kristie Duron R.N.) oal or oral temperature greater than 38 degrees Celsius. acetaminophen tablet 650 mg (TYLENOL)(Linked Group 2) 201 (Given - Provider: Lauren Lauren R.N.)08 (Given - Provider: Tiffanie Caceres R.N.)134 (Given - Provider: Tiffanie Caceres R.N.)2001 (Given - Provider: Lauren Lauren R.N.) 021 (Given - Provider: Lauren abbasi R.N.)0727 (Given - Provider: Jane Reyes R.N.)1446 (Given - Provider: Jane Reyes RBrittonNBritton)1834 (Not Given - Provider: Kristie Duron R.N. - Reason: Patient/family refused) 0516 (Given - Provider: Karma Cervantes R.N.)1023 (Not Given - Provider: Claire Root - Reason: Patient/family refused)1336 (Given - Provider: Sukhdeep Simms RBetsy) 650 mg, oral, Every 4 hours PRN, mild pa in or score 1-3 of 10, moderate pain or score 4-6 of 10, fever, Starting on Tue02/10/21 at 2305, Administer for pain greater than comfort goal or oral temperature greater than 38 degrees Celsius. 2109 (Given - Provider: Kristie Duron R.N.) acetaminophen tablet 650 mg (TYLENOL)(Linked Group 2) 201 (See Alternative - Provider: Lauren Lauren R.N.)08 (See Alternative - Provider: Tiffanie Caceres R.N.)134 (See Alternative - Provider: Tiffanie Caceres R.N.)2001 (See Alternative - Provider: Lauren Lauren R.N.) 210 (See Alternative - Provider: Lauren Lauren R.N.)0727 (See Alternative - Provider: Jane Reyes RRebekah.)1446 (See Alternative - Provider: Jane Reyes RRebekah.)1834 (See Alternative - Provider: Kristie Duron R.N.) 0516 (See Alternative - Provider: Karma Cervantes R.N.)1023 (See Alternative - Provider: Claire Root)1336 (See Alternative - Provider: Sukhdeep Simms R.N.) 650 mg, gastric tube, Every 4 hours PRN, mild pain or score 1-3 of 10, moderate pain or score 4-6 of 10, fever, Starting on Tue02/10/21 at 2305, Administer for pain greater than comfort goal or oral temperature greater than 38 degrees Celsius. 2109 (See Alternative - Provider: Larissa Duron R.N.) albuterol nebulizer solution 2.5 mg (ACCUNEB) 2.5 mg, nebulization, Every 4 hours PRN, wheezing, shortness of breath, Starting Tue02/10/21 at 2305, Albuterol nebs were interchanged for albuterol/levalbuterol MDI (same frequency) bisacodyL DR tablet 10 mg (DULCOLAX)(Linked Group 3) 10 mg, oral, 2 times daily PRN, constipa tion, Starting on Tue02/10/21 at 2305, Suppository is the preference. Swallow whole. Do NOT crush, chew, or split tablet. bisacodyL suppository 10 mg (DULCOLAX)(Linked Group 3) 10 mg, rectal, 2 times daily PRN, consti pation, Starting on Tue02/10/21 at 2305, Suppository is the preference. calcium carbonate chewable tablet 400 mg of calcium (TUMS) 0516 (Given - Provider: Karma Cervantes RRebekah.)1501 (Given - Provider: Tanvi Loza RBrittonN.) 400 mg of calcium, oral, 3 times daily P RN, heartburn, indigestion, Starting on Tue02/13/21 at 1000, Doses listed are in mg of elemental calcium. Take with food. 500 mg calcium carbonate contains 200 mg of elemental calcium. carboxymethylcellulose 0.5 % ophthalmic solution 2 drop (REF RESH PLUS) 0621 (Given - Provider: Lauren aLuren RBetsy) 2 drop, both eyes, 3 times daily PRN, dry eyes, Starti ng on 02/16/21 at 0604 diazePAM tablet 5 mg (VALIUM) 5 mg, oral, 2 times daily PRN, anxiety, sleep, Starting on S at 02/14/21 at 0815 docusate sodium 283 mg/5 mL enema 1 enema (ENEMEEZ) 1 enema, rectal, 2 times daily PRN, cons tipation, Starting Tue02/10/21 at 2305, If no bowel movement within 24 hours of starting bisacodyl hydrALAZINE tablet 25 mg (APRESOLINE) 25 mg, oral, Every 6 hours PRN, BP >220/110, Starting on 01/26 at 2341 iohexoL 300 mg iodine/mL solution (OMNIPAQUE) (COMPLETED) 1024 (Given - Provider: Suhail Benjamin M.D., Ph.D.) Code/trauma/sedation medication, Starting on Tue02/16/21 at 1024 iohexoL 350 mg iodine/mL solution 1-200 mL (OMNIPAQUE) (COMPLETE D) 1102 (Given - Provider: Mayte Palmer R.N. - Comment: [id number]) 1-200 mL, intravenous, Once in imaging, contrast, Starting on Tue02/17/21 at 1053, For 1 dose, Imaging Protocol Orders, Dose per [facility] Medication Guidelines lidocaine 10 mg/mL (1 %) injection (XYLOCAINE) (COMPLETED) 0849 (Given - Provider: Suhail Benjamin M.D., Ph.D.)0932 (Given - Provider: Suhail Benjamin M.D., Ph.D.) Code/trauma/sedation medication, Starting on Tue02/16/21 at 0849 meclizine tablet 25 mg (ANTIVERT) 25 mg, oral, Every 6 hours PRN, dizzines s, nausea, vertigo, Starting on Clementine 02/12/21 at 1400 naloxone injection 0.2 mg (NARCAN) 0.2 mg, intravenous, As needed, respirat ory depression, Starting on Tue02/11/21 at 1410, For RASS Score -4 or less, respiratory rate of less than 8 breaths/min. Notify provider/service and rapid response team (if available at institution). nicotine 21 mg/24 hr 1 patch (NICODERM CQ) 8233 (Medic ation Removed - Provider: Tiffanie Caceres R.N.)1048 (Medication Applied - Provider: Tiffanie Caceres R.N.) 1048 (Due: Medication Removed - Provider: Tiffanie Caceres R.N.) 1 patch, transdermal, Administer over 24 Hours, Daily PRN, nicotine cravings, Starting on Tue02/10/21 at 2305 nicotine polacrilex gum 4 mg (NICORETTE) 4 mg, buccal, Every 4 hours PRN, smoking cessation, Starting on Tue02/12/21 at 1615, Chew gum slowly until it tingles, then park it between your cheek and gum; when tingle disappears, Repeat process until most of the tingle is gone (about 30 min). ondansetron ODT disintegrating tablet 4 mg (ZOFRAN-ODT) 0516 (Given - Provider: Karma Cervantes R.N.) 4 mg, oral, Every 8 hours PRN, nausea, v omiting, Starting on Tue02/11/21 at 1958, When splitting ODT at bedside, handle with gloves and a pill splitter to prevent moisture contact. tiZANidine tablet 2 mg (ZANAFLEX) 2 mg, oral, Every 8 hours PRN, muscle spasms, Starting on Tue at 1537 Linked Groups Order Group 1: sennosides-docusate sodium 8.6-50 mg per tablet 2 tablet (SENOKOT-S)Jump to med 2 tablet, oral, Daily, First dose on Tue02/11/21 at 0900
While on opioids. Do not give if patient has diarrhea.
Or sennosides-docusate sodium 8.6-50 mg per tablet 2 tablet (SENOKOT-S)Jump to med 2 tablet, gastric tube, Daily, First dos e on Tue02/11/21 at 0900
While on opioids. Do not give if patient has diarrhea.
Group 2: acetaminophen tablet 650 mg (TYLENOL)Jump to med 650 mg, oral, Every 4 hours PRN, mild pa in or score 1-3 of 10, moderate pain or score 4-6 of 10, fever, Starting on Tue02/10/21 at 2305
Administer for pain greater than comfort goal or oral temperature greater than 38 degrees Celsius.
Or acetaminophen tablet 650 mg (TYLENOL)Jump to med 650 mg, gastric tube, Every 4 hours PRN, mild pain or score 1-3 of 10, moderate pain or score 4-6 of 10, fever, Starting on Tue02/10/21 at 2305
Administer for pain greater than comfort goal or oral temperature greater than 38 degrees Celsius.
Or acetaminophen suppository 650 mg (TYLENOL)Jump to med 650 mg, rectal, Every 4 hours PRN, mild pain or score 1-3 of 10, moderate pain or score 4-6 of 10, fever, Starting on Tue02/10/21 at 2305
Administer if unable to give PO for pain greater than c omfort goal or oral temperature greater than 38 degrees Celsius.
Group 3: bisacodyL DR tablet 10 mg (DULCOLAX)Jump to med 10 mg, oral, 2 times daily PRN, constipa tion, Starting on Tue02/10/21 at 2305
Suppository is the preference. Swallow whole. Do NOT crush, chew, or split tablet.
Or bisacodyL suppository 10 mg (DULCOLAX)Jump to med 10 mg, rectal, 2 times daily PRN, consti pation, Starting on Tue02/10/21 at 2305
Suppository is the preference.
documented in this encounter Additional Health Concerns Infection Onset Date Last Indicated Resolved Time COVID19 Pending 02/10/2021 02/11/2021 02/11/2021 1:09 AM CDT Assessment Noted Time PHQ-9 Depression Total Score: 02/11/2021 12:00 AM C DT documented as of this encounter
--- OUTSIDE RECORDS SUMMARY | 2022-07-06 14:54 | XMS_ITS | Encounter Summary ---
:1965 Author Organization [facility] Address [address] [place] [address] Care Team Providers Name Role Phone Unavailable Primary Care Provider Unavailable Reason for Referral Outpatient (Routine) - Closed Specialty Diagnoses / Procedures Referred By Contact Clyde bains To Contact Neurology Robert Diehl M. D. [facility] [address] [place] [address] Referral ID Status Reason Start Date Expiration Date Visits Requ ested Visits Authorized [id number] Closed 09/15/2020 09/15/2021 1 1 Reason for Visit Appointment Request (Routine) - Closed Specialty Diagnoses / Procedures Referred By Contact Clyde bains To Contact Neurology Referral ID Status Reason Start Date Expiration Date Visits Requ ested Visits Authorized [id number] Closed 07/31/2020 07/31/2021 1 1 Encounter Details Date Type Department Care Team Description 09/15/2020 Virtual Visit Department of Robert Diehl [place] An eurysm Nonruptured (HCC) (Primary Dx); Neurology in M.D. Nicotine Dependence ; [place], [place] [address] [facility] Aneurysm Cerebral Unruptured (HCC) [address] [place] [id number] Social History Tobacco Use Types Packs/Day Years Used Date Smoking Tobacco: Every Day Cigarettes 0.5 30 Smokeless Tobacco: Never Tobacco Cessation: Ready to [...] you attend druze or Patient refused 2021 moravian services? Do [...] encounter Progress Notes Robert Diehl M.D. - 09/15/2020 3:30 PM CDT This visit was conducted via the telephone and not in a [id number] manner. Ms. 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 Recall she has a left paraclinoid ICA aneurysm at approximately 5-6 mm as well as possibly to additional aneurysms along the left ICA versus infundibulum. She has continue smoke approximately half pack per day and using estrogen products at a dose of 100micro g daily for joyce menopausal. There have been no further stroke-like symptoms or thunderclap headache. We discussed the resolution of her thrombus on the most recent outside magnetic resonance angiogram this is excellent news continue aspirin she is off warfarin. We discussed that the 2019 in comparison to the 2019 intracranial MRA does not demonstrate any significant interval change to the unruptured cerebral aneurysm, however I asked her if she would like me to have this reviewed with our colleagues in neuroradiology and she is okay with this since I have placed an outside interpretation order to have this reviewed. We discussed the risk of thrombosis in the setting of exogenous estrogen tobacco use and migraine and she will work with her local primary care provider to cut back on the estrogen use for her perimenopausal symptoms. She work with her primary care provider for goal blood pressure and tobacco cessation for the intracranial aneurysms. I will look forward to reviewing our neuroradiology colleagues review and if the aneurysm has remained relatively stable then a one year surveillance image will be the next most reasonable consideration. #1 Cryptogenic stroke embolic stroke unknown source in the setting of arterial thrombus #2 Unruptured cerebral aneurysm left paraclinoid 5-6 mm #3 Hypertension #4 Tobacco abuse #5 Exogenous estrogen use #6 Migraine headache #7 Chronic pain 25 minutes spent on the phone Was a pleasure to speak with her on the telephone. Questions are answered. Diagnosis Plan 1. Sunshine Aneurysm Nonruptured (HCC) Interpretation of Outside MR Head 2. Nicotine Dependence 3. Aneurysm Cerebral Unruptured (HCC) MR Brain Angiogram without IV Contrast PM Device interrogation (clinic) Electronically signed by: Robert Diehl M.D. 09/15/20 3:53 PM CDT documented in this encounter Plan of Treatment Scheduled Referrals Name Type Priority Associated Diagnoses Order [facility] office Outpatient Referral Routine Expe cted: visit (clinic) 09/15/2021 (Approximate), Expires: 09/15/2023 documented as of this encounter Results Interpretation of Outside MR Head (09/15/2020 3:48 PM CDT) Anatomical Region Laterality Modality Neuroradiology RST LOS, Neuroradiology ARZ LOS, N/A Magnetic Resonance Neuroradiology FLA LOS, Head, Other Specimen (Source) Anatomical Collection Method Collection Time Re ceived Time Location / / Volume Laterality 09/16/2020 1:02 PM CDT Impressions 09/16/2020 1:25 PM CDT No change in the left paraclinoid aneurysm. Additional 1-2 mm aneurysms off of the terminal left ICA a nd right M1 segment as detailed in the findings. Narrative 09/16/2020 1:25 PM CDT EXAM: ??INTERPRETATION OF OUTSIDE MR HEAD COMPARISON: ??Head MRA 09/19/2019 FINDINGS: Outside head MRA without IV contrast and neck MRA without and with IV contrast 09/03/2020: Head MRA: Motion artifact does degrade f ine detail. Unchanged broad-based projecting 3-4 mm laterally projecting a neurysm off of the left paraclinoid internal carotid artery. Unchanged infer iorly projecting broad-based outpouchings off of the terminal ICA one of which may be an infundibulum but the other would be compatible with a 1-2 mm aneurysm. Unchanged broad-based superiorly projecting lesion off of the right M1 segment may represent an additional blister type aneurysm. Domina nt right vertebral artery. RADHA, MCA, and material coordinator are patent. Neck MRA: Conventional three-vessel arch anatomy. Origins of the vertebral and carotid arteries are patent. No high gra de stenoses of the cervical arteries. Procedure Note Kera Zelaya M.D. - 09/16/2020Formatt ing of this note might be different from the original. EXAM: INTERPRETATION OF OUTSIDE MR HEAD COMPARISON: Head MRA 09/19/2019 FINDINGS: Outside head MRA without IV contrast and neck MRA without and with IV contrast 09/03/2020: Head MRA: Motion artifact does degrade f ine detail. Unchanged broad-based projecting 3-4 mm laterally projecting a neurysm off of the left paraclinoid internal carotid artery. Unchanged infer iorly projecting broad-based outpouchings off of the terminal ICA one of which may be an infundibulum but the other would be compatible with a 1-2 mm aneurysm. Unchanged broad-based superiorly projecting lesion off of the right M1 segment may represent an additional blister type aneurysm. Domina nt right vertebral artery. RADHA, MCA, and material coordinator are patent. Neck MRA: Conventional three-vessel arch anatomy. Origins of the vertebral and carotid arteries are patent. No high gra de stenoses of the cervical arteries. IMPRESSION: No change in the left paraclinoid aneury sm. Additional 1-2 mm aneurysms off of the terminal left ICA a nd right M1 segment as detailed in the findings. Robert Diehl M.D. [facility] MRI PROCEDURES documented in this encounter Visit Diagnoses Diagnosis Sunshine Aneurysm Nonruptured (HCC) - Prima ry Nicotine Dependence Aneurysm Cerebral Unruptured (HCC) Sunshine Aneurysm Nonruptured (HCC) documented in this encounter Additional Health Concerns Assessment Noted Time PHQ-9 Depression Total Score: 5 04/05/2019 8:00 AM CDT documented as of this encounter
--- OUTSIDE RECORDS SUMMARY | 2022-07-06 14:54 | XMS_ITS | Encounter Summary ---
:1965 Author Organization [facility] Address [address] [place] [address] Care Team Providers Name Role Phone Unavailable Primary Care Provider Unavailable Reason for Visit Reason Comments Pre-visit Intake Encounter Details Date Type Department Care Team Description 01/29/2021 Clinical Communication Department of Robert Diehl e-visit Intake Neurology in Lilian Celaya [place], [facility] [place], [place] [address] [place] [phone] [place], [place] [phone] (Work) [phone] Social History Tobacco Use Types Packs/Day Years Used Date Smoking Tobacco: Every Day Cigarettes 0.5 30 Smokeless Tobacco: Never Comments: Since teens, used [...] or relatives? How often do you attend restorationism or Patient refused 2021 denominational services? Do you belong to any clubs or No 05/17/2022 organizations such as restorationism groups, unions, fraternal or athletic groups, or [...]
--- OUTSIDE RECORDS SUMMARY | 2022-07-06 14:54 | XMS_ITS | Encounter Summary ---
:1965 Author Organization [facility] Address [address] [place] [address] Care Team Providers Name Role Phone Unavailable Primary Care Provider Unavailable Encounter Details Date Type Department Care Team Description 01/12/2021 Anticoagulation Visit Department of Neurology Zuly Alex in [facility] raúl SkaggsNBritton [address] [facility] [address] [place] [phone] Social History Tobacco Use Types Packs/Day Years [...] you attend confucianism or Patient refused 2021 jehovah's witness services? [...] documented as of this encounter Progress Notes Zuly Alex R.N. - 01/12/2021 4:05 PM CST Anticoagulation management. Target INR 2.0-3.[address] Argenis Diehl ([id number]). The patient was scheduled for an INR recheck on 01/09/21, however did not have an INR draw until late that afternoon. The results did not become available until after clinic hours. Patient's INR on 01/09/21 was 2.[address]. Discussed with Dr. Argenis Diehl ([id number]) who advises that the patient follow a wa rfarin dosing plan of 7.5 mg on Mondays, then 5 mg the remaining six nights of the week (for a totalweekly dose of 37.5 mg), then have an INR recheck in one week. Relayed these directions to the patient by telephone who reports an adequate understanding of the plan and denies noting any signs of bleeding or recurrent stroke-like symptoms. She shares that spells of vertigo have greatly decreased in frequency and intensity. Will schedule an INR recheck for 01/19/21. The patient does have a home nurse visit usually on Mondays. Due to the holiday today, her nurse will be visiting tomorrow she believes. She will inquire if her nurse can bring a POC device with her for her Tuesday visits to facilitate getting INR results more effectively. The patient also shares that she has been extremely fatigued lately. We discussed that she has had arecent recurrent stroke and fatigue is part of the recovery and should gradually improve. She also shares that she has been vomiting for no defined reason and has acid reflux with this. The shoulder that she has had a recent surgery on has also been sore. I reiterated that she has had some recent falls with her recurrent stroke. She states she has an appointment with her surgeon to check on her shoulder. I informed her she would need to contact her primary care provider to investigate her vomiting/acid reflux. There has been no sign of bleeding with the vomiting. The patient agrees to contact her PCP. RECOMMENDED LEVEL OF CARE. The patient/caller is willing and able to follow the nurse's recommendation. RESPONSE TO ADVICE GIVEN. Patient/caller able to teach back. REFERENCES UTILIZED. Nursing clinical judgment utilized. Other interventions or information: Provider advice. TYPE OF PHONE CALL. Test results, symptom assessment. 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 documented in this encounter Results Prothrombin Time (PT) (01/09/2021) P athologist Signature EXT INR 2.40 OTHER (SPECIFY IN STAGING TECHNICIAN) Specimen (Source) Anatomical Location Collection Method / Collectio n Time Received Time / Laterality Volume Blood (Blood, 01/09/2021 Venous) Narrative This result has an attachment that is no t available. Historical Provider LAB BLOOD ADD-ON Performing Organization Address City/State/ZIP Code Phon e Number OTHER (SPECIFY IN STAGING TECHNICIAN) OTHER (SPECIFY IN STAGING TECHNICIAN) N/A documented in this encounter Visit Diagnoses Not on filedocumented in this encounter Additional Health Concerns Assessment Noted Time PHQ-9 Depression Total Score: 5 04/05/2019 8:00 AM CDT documented as of this encounter
--- OUTSIDE RECORDS SUMMARY | 2022-07-06 14:54 | XMS_ITS | Encounter Summary ---
:1965 Author Organization [facility] Address [address] [place] [address] Care Team Providers Name Role Phone Unavailable Primary Care Provider Unavailable Encounter Details Date Type Department Care Team Description 02/02/2021 Orders Only Department of Neurology in Bisi Acevedo D.O. [place], [place] [address] [place] [phone] (Wo rk) Social History Tobacco Use Types [...]
--- OUTSIDE RECORDS SUMMARY | 2022-07-06 14:54 | XMS_ITS | Encounter Summary ---
:1965 Author Organization [facility] Address [address] [place] [id number] Care Team Providers Name Role Phone Unavailable Primary Care Provider Unavailable Reason for Referral MRI/CAT/PET Scan (Routine) - Closed Specialty Diagnoses / Procedures Referred By Contact Refer red To Contact Radiology Diagnoses Ataxia Robert Fowler M.D. [facility] Procedures CT Head Neck Angiogram with IV Contrast [address] [place] [address] Referral ID Status Reason Start Date Expiration Date Visits Requ ested Visits Authorized [id number] Closed 12/31/2020 12/31/2021 1 1 EU MANAGER Outpatient (Routine) - Closed Specialty Diagnoses / Procedures Referred By Contact Refer red To Contact Video Medicine Diagnoses Stroke Cerebrovascular Accident Personal History Robert Fowler [facility] Margot Quintana [address] [place] [address] Referral ID Status Reason Start Date Expiration Date Visits Requ ested Visits Authorized [id number] Closed 12/30/2020 12/30/2021 1 1 EU MANAGER MRI/CAT/PET Scan (Routine) - Closed Specialty Diagnoses / Procedures Referred By Contact Refer red To Contact Radiology Diagnoses Ataxia Robert Fowler M.D. [facility] Procedures CT Head Neck Angiogram with IV Contrast [address] [place] [address] Referral ID Status Reason Start Date Expiration Date Visits Requ ested Visits Authorized [id number] Closed 12/30/2020 12/30/2021 1 1 EU MANAGER MRI/CAT/PET Scan (Routine) - Closed Specialty Diagnoses / Procedures Referred By Contact Refer red To Contact Radiology Diagnoses Stroke Cerebrovascular Accident Personal History Robert Fowler M.D. [facility] Procedures CT Head without IV Contrast [address] [place] [address] Referral ID Status Reason Start Date Expiration Date Visits Requ ested Visits Authorized [id number] Closed 12/30/2020 12/30/2021 1 1 EU MANAGER Reason for Visit Reason Comments Symptom Assessment Encounter Details Date Type Department Care Team Description 12/22/2020 Clinical Communication Department of Robert Fowler mptom Assessment Neurology jimmy Celaya M.D. [place], [address] [place], [place] [address] [facility] [id number] [place], [place] [phone] [id number] (Work) [phone] Social History Tobacco Use Types Packs/Day Years [...] attend jehovah's witness or Patient refused 2021 [employer]? Do [...] this encounter Miscellaneous Notes Addendum Note - Robert Fowler M.D. - 12/31/2020 5:17 PM MILIEU MANAGER Addended by: ROBERT FOWLER on: 12/31/2020 05:17 PM Modules accepted: Orders EU MANAGER Addendum Note - Robert Fowler M.D. - 12/30/2020 8:34 AM MILIEU MANAGER Addended by: ROBERT FOWLER on: 12/30/2020 08:34 AM Modules accepted: Orders EU MANAGER Telephone Encounter - Zuly Alex R.N. - 12/29/2020 4:48 PM CST The patient telephones back today. She did present to the local ED in [place] for evaluation of her vertigo. She shares that a head CT was performed and she was told it was different. She states they didn't tell her what the difference was. They advised urgent MRI. She was instructed to contact her local primary MD, Dr. Clemente Blackwell to arrange the MRI. She shares she has tried to call his office but informed that she needs to get in contact with her [facility] neurologist. The patient reports that at her ED visit on 12/22/20, she was provided with a prescription for meclizine 25 mg every 8 hours. She shares that she is taking this every 6 hours and it has helped decrease the frequency and s everity of her vertigo symptoms. She shares yesterday, 12/28/20, she experienced a sudden episode ofvertigo while standing in her kitchen. She felt she would lose her balance and carefully guided herself by walking with her hands on her alston until she reached a safe chair to sit on. With this episode, it felt like her eyes were rolling very fast. She could not see the buttons on her cell phone wellenough to call for help. She states she knows she does not dare to drive herself anywhere. At this time, she is not having an episode and is feeling better. We discussed that for recurrent episodes, she could call 911 or have someone drive her to [facility] as well. She agrees to call 911 for recurrent episodes. RECOMMENDED LEVEL OF CARE. The patient/caller is willing and able to follow the nurse's recommendation. RESPONSE TO ADVICE GIVEN. Patient/caller able to teach back. REFERENCES UTILIZED. Nursing clinical judgment utilized. Other interventions or information: Provider advice. TYPE OF PHONE CALL. Symptom assessment. EU MANAGER Telephone Encounter - Robert Fowler M.D. - 12/23/2020 8:16 AM CST Zuly Thank you so much for your detailed note an action for this patient. I agree with your recommendations, some form of local medical attention seems most reasonable. Once she has been evaluated locally emergency room and/or primary care provider and is determined by local care providers there is concernfor neurological problem I would be happy to see back. Thank you again for your excellent attention in this patient's care. Sincerely Electronically signed by: Robert Fowler M.D. 12/23/20 8:21 AM MILIEU MANAGER EU MANAGER Telephone Encounter - Zuly Alex R.N. - 12/22/2020 5:25 PM CST 5:17 pm. Tried calling to assure she could reach her son to take her to the ED. No answer. EU MANAGER Telephone Encounter - Zuly Alex R.N. - 12/22/2020 4:34 PM CST The patient has been following with Dr. Fowler for cryptogenic stroke ESUS with arterial thrombus and unruptured left paraclinoid aneurysm. Her last visit with Dr. Fowler was a virtual visit on 09/15/20. She telephones our Neurology Appoint[facility] today requesting a virtual visit with Dr. Fowler since she has developed some severe vertigo. I telephoned her back as requested by Dr. Fowler to triage her symptoms. The patient reports having surgery on her left shoulder around 10/26/20. She reports 3 events in therecent weeks to a month. Her history was a bit challenging to follow. She had been wearing a left shoulder brace and noted some sharp pains in the right side of her head that would develop into a severe right sided migraine. This is described as her first episode. She had been standing in her kitchen at the onset of this sharp pain. She reports she couldn't see anything when this happened. She had tosit down and then this resolved. She reports a second episode of vertigo all the sudden a couple of weeks ago. She shares both legs felt weak. This resolved. She did not see her primary physician. The third episode started Tuesday12/20/20. She shares she was driving her car, pulling out of the parking lot where she lives. She turned her head quickly to check traffic both ways. She noted suddenonset of severe vertigo. She was unable to drive and pulled her car over as best she could. She couldn't see straight in front of herself due to visual blurring. She called her son who then called her neighbor. They both went to her and the neighbor drove her car back home. Her son and neighbor assisted her to her apartment and helped her sit in a chair. She experienced nausea, vomited a little, thendry heaved. She notes that she still feels a bit nauseated. She has been bumping into alston, feels imbalanced, and fell last night. She had to crawl to get to the bathroom. She continues to feel like she is on a boat. She shares her vision is still blurry. I asked her to cover one eye, then the other to determine if the visual blurring affects one eye. She shares that with covering either eye, the vision with the open eye is somewhat better. I asked if her son noted any changes with her speech. She shares he mentioned it has been as if she were drunk or something. She is able to get her words out, however sounds a bit garbled at times. Today, 12/22/20, she was scheduled for a nurse visit. She shares she slept right through the nurse who called when at her door. She missed the visit. She states she did contact her primary provider. She states she was informed to rest and this would clear up. I informed the patient that she needs to have someone take her to the nearest emergency room or [id number]. She expressed concerns about going to the ED given COVID. We discussed that health care institutions have safety protocols in place and that she does require emergent evaluation. She shares she isfeeling somewhat better at the time of this call, however admits that sitting in a chair, she still feels imbalanced and is needing to crawl to get around her apartment. I offered to call her son to assist her to the nearest ED which would be in [place]. He did not answer. I offered to call 911 for. She declined this. She states she will get a hold of her son to take her to the ED. RECOMMENDED LEVEL OF CARE. The patient/caller is willing and able to follow the nurse's recommendation with multiple reinforcements. REFERENCES UTILIZED. Nursing clinical judgment utilized. Other interventions or information: Provider advice. TYPE OF PHONE CALL. Symptom assessment. EU MANAGER Telephone Encounter - Robert Fowler M.D. - 12/22/2020 3:29 PM CST Please call patient in triage whether she needs to be seen in the local emergency department for concern of acute stroke? EU MANAGER documented in this encounter Plan of Treatment Scheduled Referrals Name Type Priority Associated Diagnoses Order S chedule Video anyplace Outpatient Referral Routine Stroke Cerebrovascu lar Expected: visit Accident Personal 12/30/2020 , History Expires: 12/30/2023 documented as of this encounter Results CT Head Neck Angiogram with IV Contrast (01/30/2021 3:24 PM MILIEU MANAGER) Anatomical Region Laterality Modality Head and Neck, Neuroradiology RST LOS, N/A C omputed Tomography, Computed Neuroradiology ARZ LOS, Neuroradiology T omography FLA LOS Specimen (Source) Anatomical Collection Method Collection Time Re ceived Time Location / / Volume Laterality 01/30/2021 2:25 PM MILIEU MANAGER Impressions 01/30/2021 3:18 PM MILIEU MANAGER 1. 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 Slightly decreased high-grade stenosis a t the V3/4 junction with increased flow in the distal V4 segment. 2. Evolving, now chronic right cerebella r infarct. 3. 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 Narrative 01/30/2021 3:18 PM MILIEU MANAGER EXAM: CT HEAD NECK ANGIOGRAM WITH IV CONTRAST Including 3D image post-processing. COMPARISON: CTA head and neck 12/31/2020 . FINDINGS: Redemonstration of a right vertebral art silva dissection. There has been some interval recanalization of the V3 segmen t however the irregular dissection flap with associated thrombus at the V3/V4 ju nction remains visible and results in a focal (at least 90%) stenosis where the vessel transverses the C1 arch. Although the stenosis here is high-grade, it has improved in the V3 segment. Expected evaluation of the now chronic right infe rior cerebellar infarct. Remainder unchanged. The bilateral carot id and left vertebral arteries are patent throughout the neck without evide nce of vascular injury or significant stenosis. Stable left ICA 2 mm supraclin oid and 5-6 mm paraclinoid aneurysms. Widely patent and normal caliber bilater al MCAs, ACAs and coremaking supervisor. Patent anterior and right posterior communicating arteri es. Diminutive left posterior communicating artery. Encephalomalacia medial left occipital l obe. Normal caliber ventricles. Postoperative changes both globes. Bilat eral maxillary antrostomies. Aplastic frontal sinuses. Well-aerated mastoid ai r cells. Posterior cervicothoracic spine fusion. Reverse left TSA. Spinal stimula tor leads terminate at the thoracic spine. Procedure Note Ju Larson M.D. - 01/30/2021Forma tting of this note might be different from the original. EXAM: CT HEAD NECK ANGIOGRAM WITH IV CON TRAST Including 3D image post-processing. COMPARISON: CTA head and neck 12/31/2020 . FINDINGS: Redemonstration of a right vertebral art silva dissection. There has been some interval recanalization of the V3 segmen t however the irregular dissection flap with associated thrombus at the V3/V4 ju nction remains visible and results in a focal (at least 90%) stenosis where the vessel transverses the C1 arch. Although the stenosis here is high-grade, it has improved in the V3 segment. Expected evaluation of the now chronic right infe rior cerebellar infarct. Remainder unchanged. The bilateral carot id and left vertebral arteries are patent throughout the neck without evide nce of vascular injury or significant stenosis. Stable left ICA 2 mm supraclin oid and 5-6 mm paraclinoid aneurysms. Widely patent and normal caliber bilater al MCAs, ACAs and coremaking supervisor. Patent anterior and right posterior communicating arteri es. Diminutive left posterior communicating artery. Encephalomalacia medial left occipital l obe. Normal caliber ventricles. Postoperative changes both globes. Bilat eral maxillary antrostomies. Aplastic frontal sinuses. Well-aerated mastoid ai r cells. Posterior cervicothoracic spine fusion. Reverse left TSA. Spinal stimula tor leads terminate at the thoracic spine. IMPRESSION: 1. Partial interval recanalization of th e right vertebral artery dissection. Slightly decreased high-grade stenosis a t the V3/4 junction with increased flow in the distal V4 segment. 2. Evolving, now chronic right cerebella r infarct. 3. 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 Robert WEIG CT PROCEDURES CT Head Neck Angiogram with IV Contrast (12/31/2020 3:34 PM MILIEU MANAGER) Anatomical Region Laterality Modality Head and Neck, Neuroradiology RST LOS, N/A C omputed Tomography, Computed Neuroradiology ARZ LOS, Neuroradiology T omography FLA [facility] Specimen (Source) Anatomical Collection Method Collection Time Re ceived Time Location / / Volume Laterality 12/31/2020 3:49 PM MILIEU MANAGER Impressions 12/31/2020 4:54 PM MILIEU MANAGER 1. Evolving right cerebellar infarct with decreased edema since CT of 12/22/2020. 2. Mildly expansile thrombus in the righ t vertebral artery V3 segment has slightly increased in extent since MRA o f 09/03/2020 and is now near occlusive, with only a thin string of residual cont rast opacification and findings compatible with decreased antegrade flow including asymmetrically decreased contrast density and decreased luminal d iameter of the V4 segment of the right vertebral artery. 3. 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 Narrative 12/31/2020 4:54 PM MILIEU MANAGER EXAM: CT HEAD WITHOUT IV CONTRAST, CT HEAD NECK ANGIOGRAM WITH IV CONTRAST Including 3D image post-processing. COMPARISON: Outside head CT 12/22/2020, outside brain MRA 09/03/2020 FINDINGS: VASCULAR: Conventional three-vessel aort ic arch anatomy. Portions of the branch vessels are obscured by beam hardening a rtifact but appear grossly patent. The cervical carotid arteries are patent wit hout evidence of stenosis or dissection. Tortuosity of the bilateral ICAs. Redemonstration of a mildly expansile th rombus in the right vertebral artery V3 segment. Compared to prior exams this ap pears to have slightly increased in extent and is nearly occlusive, with onl y a thin string of residual luminal opacification (for example series 7 imag es [phone]). There is asymmetrically decreased density of the V4 segment of t he right vertebral artery, likely related to impaired antegrade flow. In a ddition, the luminal caliber of the right V4 segment also appears slightly d ecreased from prior studies, compatible with diminished flow. The left vertebral artery and remainder of the posterior circulation is widely patent. Stable 3-4 mm aneurysm projecting latera lly off the left paraclinoid internal carotid artery. Stable 1-2 mm projection from the inferior aspect of the left supraclinoid ICA is just distal to a pro minent infundibulum associated with the posterior communicating artery, and is c ompatible with a small aneurysm. The previously noted possible aneurysm proje cting superiorly from the right M1 segment is not as well appreciated on to day's study. No evidence of venous sinus thrombosis or significant intracranial s tenosis. NONVASCULAR: Evolving right cerebellar i nfarct with decreased extent of the hypodensity in the right posterior fossa since 12/22/2020, compatible with decreased edema, with slight decreased e ffacement of the right lateral aspect of the 4th ventricle. Normal caliber of the ventricular system. No evidence of intracranial hemorrhage or new infarct. Left medial occipital encephalomalacia. Bilateral maxillary antrostomies. Well a erated paranasal sinuses and mastoid air cells. Edentulous mandible and maxilla. Bilateral pseudophakia. Left TSA. Posterior instrumented fusion of the cervicothoracic spine. Stable small hypoenhancing right thyroid nodule . Stable borderline bilateral cervical lymph nodes. Spinal stimulator leads are noted on localizer images extending to the mid thoracic spine. Findings discussed with ordering Dr. Fazal ching ([phone]) at 4:54 PM on 12/31/2020. Procedure Note El Cruz M.D. - 1 EXAM: CT HEAD WITHOUT IV CONTRAST, CT HE AD NECK ANGIOGRAM WITH IV CONTRAST Including 3D image post-processing. COMPARISON: Outside head CT 12/22/2020, outside brain MRA 09/03/2020 FINDINGS: VASCULAR: Conventional three-vessel aort ic arch anatomy. Portions of the branch vessels are obscured by beam hardening a rtifact but appear grossly patent. The cervical carotid arteries are patent wit hout evidence of stenosis or dissection. Tortuosity of the bilateral ICAs. Redemonstration of a mildly expansile th rombus in the right vertebral artery V3 segment. Compared to prior exams this ap pears to have slightly increased in extent and is nearly occlusive, with onl y a thin string of residual luminal opacification (for example series 7 imag es [phone]). There is asymmetrically decreased density of the V4 segment of t he right vertebral artery, likely related to impaired antegrade flow. In a ddition, the luminal caliber of the right V4 segment also appears slightly d ecreased from prior studies, compatible with diminished flow. The left vertebral artery and remainder of the posterior circulation is widely patent. Stable 3-4 mm aneurysm projecting latera lly off the left paraclinoid internal carotid artery. Stable 1-2 mm projection from the inferior aspect of the left supraclinoid ICA is just distal to a pro minent infundibulum associated with the posterior communicating artery, and is c ompatible with a small aneurysm. The previously noted possible aneurysm proje cting superiorly from the right M1 segment is not as well appreciated on to day's study. No evidence of venous sinus thrombosis or significant intracranial s tenosis. NONVASCULAR: Evolving right cerebellar i nfarct with decreased extent of the hypodensity in the right posterior fossa since 12/22/2020, compatible with decreased edema, with slight decreased e ffacement of the right lateral aspect of the 4th ventricle. Normal caliber of the ventricular system. No evidence of intracranial hemorrhage or new infarct. Left medial occipital encephalomalacia. Bilateral maxillary antrostomies. Well a erated paranasal sinuses and mastoid air cells. Edentulous mandible and maxilla. Bilateral pseudophakia. Left TSA. Posterior instrumented fusion of the cervicothoracic spine. Stable small hypoenhancing right thyroid nodule . Stable borderline bilateral cervical lymph nodes. Spinal stimulator leads are noted on localizer images extending to the mid thoracic spine. Findings discussed with ordering physici anDr. Fowler ([id number]) at 4:54 PM on 12/31/2020. IMPRESSION: 1. Evolving right cerebellar infarct wit h decreased edema since CT of 12/22/2020. 2. Mildly expansile thrombus in the righ t vertebral artery V3 segment has slightly increased in extent since MRA o f 09/03/2020 and is now near occlusive, with only a thin string of residual cont rast opacification and findings compatible with decreased antegrade flow including asymmetrically decreased contrast density and decreased luminal d iameter of the V4 segment of the right vertebral artery. 3. 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 Robert NIELSON CT PROCEDURES CT Head without IV Contrast (12/31/2020 3:34 PM MILIEU MANAGER) Anatomical Region Laterality Modality Head, Neuroradiology RST LOS, N/A Computed T omography, Computed Neuroradiology ARZ LOS, Neuroradiology T omography FLA LOS Specimen (Source) Anatomical Collection Method Collection Time Re ceived Time Location / / Volume Laterality 12/31/2020 3:49 PM MILIEU MANAGER Impressions 12/31/2020 4:54 PM MILIEU MANAGER 1. Evolving right cerebellar infarct with decreased edema since CT of 12/22/2020. 2. Mildly expansile thrombus in the righ t vertebral artery V3 segment has slightly increased in extent since MRA o f 09/03/2020 and is now near occlusive, with only a thin string of residual cont rast opacification and findings compatible with decreased antegrade flow including asymmetrically decreased contrast density and decreased luminal d iameter of the V4 segment of the right vertebral artery. 3. 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 Narrative 12/31/2020 4:54 PM MILIEU MANAGER EXAM: CT HEAD WITHOUT IV CONTRAST, CT HEAD NECK ANGIOGRAM WITH IV CONTRAST Including 3D image post-processing. COMPARISON: Outside head CT 12/22/2020, outside brain MRA 09/03/2020 FINDINGS: VASCULAR: Conventional three-vessel aort ic arch anatomy. Portions of the branch vessels are obscured by beam hardening a rtifact but appear grossly patent. The cervical carotid arteries are patent wit hout evidence of stenosis or dissection. Tortuosity of the bilateral ICAs. Redemonstration of a mildly expansile th rombus in the right vertebral artery V3 segment. Compared to prior exams this ap pears to have slightly increased in extent and is nearly occlusive, with onl y a thin string of residual luminal opacification (for example series 7 imag es [phone]). There is asymmetrically decreased density of the V4 segment of t he right vertebral artery, likely related to impaired antegrade flow. In a ddition, the luminal caliber of the right V4 segment also appears slightly d ecreased from prior studies, compatible with diminished flow. The left vertebral artery and remainder of the posterior circulation is widely patent. Stable 3-4 mm aneurysm projecting latera lly off the left paraclinoid internal carotid artery. Stable 1-2 mm projection from the inferior aspect of the left supraclinoid ICA is just distal to a pro minent infundibulum associated with the posterior communicating artery, and is c ompatible with a small aneurysm. The previously noted possible aneurysm proje cting superiorly from the right M1 segment is not as well appreciated on to day's study. No evidence of venous sinus thrombosis or significant intracranial s tenosis. NONVASCULAR: Evolving right cerebellar i nfarct with decreased extent of the hypodensity in the right posterior fossa since 12/22/2020, compatible with decreased edema, with slight decreased e ffacement of the right lateral aspect of the 4th ventricle. Normal caliber of the ventricular system. No evidence of intracranial hemorrhage or new infarct. Left medial occipital encephalomalacia. Bilateral maxillary antrostomies. Well a erated paranasal sinuses and mastoid air cells. Edentulous mandible and maxilla. Bilateral pseudophakia. Left TSA. Posterior instrumented fusion of the cervicothoracic spine. Stable small hypoenhancing right thyroid nodule . Stable borderline bilateral cervical lymph nodes. Spinal stimulator leads are noted on localizer images extending to the mid thoracic spine. Findings discussed with ordering physici Dr. Fazal abbasi ([phone]) at 4:54 PM on 12/31/2020. Procedure Note El Cruz M.D. - 1 EXAM: CT HEAD WITHOUT IV CONTRAST, CT HE AD NECK ANGIOGRAM WITH IV CONTRAST Including 3D image post-processing. COMPARISON: Outside head CT 12/22/2020, outside brain MRA 09/03/2020 FINDINGS: VASCULAR: Conventional three-vessel aort ic arch anatomy. Portions of the branch vessels are obscured by beam hardening a rtifact but appear grossly patent. The cervical carotid arteries are patent wit hout evidence of stenosis or dissection. Tortuosity of the bilateral ICAs. Redemonstration of a mildly expansile th rombus in the right vertebral artery V3 segment. Compared to prior exams this ap pears to have slightly increased in extent and is nearly occlusive, with onl y a thin string of residual luminal opacification (for example series 7 imag es [phone]). There is asymmetrically decreased density of the V4 segment of t he right vertebral artery, likely related to impaired antegrade flow. In a ddition, the luminal caliber of the right V4 segment also appears slightly d ecreased from prior studies, compatible with diminished flow. The left vertebral artery and remainder of the posterior circulation is widely patent. Stable 3-4 mm aneurysm projecting latera lly off the left paraclinoid internal carotid artery. Stable 1-2 mm projection from the inferior aspect of the left supraclinoid ICA is just distal to a pro minent infundibulum associated with the posterior communicating artery, and is c ompatible with a small aneurysm. The previously noted possible aneurysm proje cting superiorly from the right M1 segment is not as well appreciated on to day's study. No evidence of venous sinus thrombosis or significant intracranial s tenosis. NONVASCULAR: Evolving right cerebellar i nfarct with decreased extent of the hypodensity in the right posterior fossa since 12/22/2020, compatible with decreased edema, with slight decreased e ffacement of the right lateral aspect of the 4th ventricle. Normal caliber of the ventricular system. No evidence of intracranial hemorrhage or new infarct. Left medial occipital encephalomalacia. Bilateral maxillary antrostomies. Well a erated paranasal sinuses and mastoid air cells. Edentulous mandible and maxilla. Bilateral pseudophakia. Left TSA. Posterior instrumented fusion of the cervicothoracic spine. Stable small hypoenhancing right thyroid nodule . Stable borderline bilateral cervical lymph nodes. Spinal stimulator leads are noted on localizer images extending to the mid thoracic spine. Findings discussed with ordering Dr. Fazal ching ([id number]) at 4:54 PM on 12/31/2020. IMPRESSION: 1. Evolving right cerebellar infarct wit h decreased edema since CT of 12/22/2020. 2. Mildly expansile thrombus in the righ t vertebral artery V3 segment has slightly increased in extent since MRA o f 09/03/2020 and is now near occlusive, with only a thin string of residual cont rast opacification and findings compatible with decreased antegrade flow including asymmetrically decreased contrast density and decreased luminal d iameter of the V4 segment of the right vertebral artery. 3. 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 Robert NIELSON CT PROCEDURES documented in this encounter Visit Diagnoses Diagnosis Stroke Cerebrovascular Accident Personal History - Primary Ataxia Stroke Cerebrovascular Accident Personal History Ataxia Ataxia documented in this encounter Additional Health Concerns Assessment Noted Time PHQ-9 Depression Total Score: 5 04/05/2019 8:00 AM CDT documented as of this encounter
--- OUTSIDE RECORDS SUMMARY | 2022-07-06 14:54 | XMS_ITS | Encounter Summary ---
:1965 Author Organization [facility] Address [address] [place] [address] Care Team Providers Name Role Phone Unavailable Primary Care Provider Unavailable Reason for Visit Reason Comments Initiate warfarin anticoagulation. Encounter Details Date Type Department Care Team Description 01/01/2021 Clinical Communication Department of Renny Mahoney warfarin Neurology in [place] anticoagulation. [address] [place] [phone] [place], [place] [phone] (Work) [phone] Social History Tobacco Use Types Packs/Day Years [...] or relatives? How often do you attend mandaen or Patient refused 2021 worship services? Do you belong to any clubs or No 05/17/2022 organizations such as mandaen groups, unions, fraternal or athletic groups, or [...] this encounter Miscellaneous Notes Telephone Encounter - Allyssa Amaya - 01/16/2021 2:01 PM CST RADHA Thompson, calls in from [facility] with INR results = 3.9. Please call her back at [phone] HAT ENGINEER Telephone Encounter - Renny Mahoney R.N. - 01/05/2021 1:56 PM CST Mackenzie talked to her, she needs to go to the lab today. HAT ENGINEER Telephone Encounter - Allyssa Amaya - 01/05/2021 11:14 AM CST Patient calls in regarding this. She is wanting this set up now so a nurse can come into her home and do this. She I believed mentions that a nurse comes into her home now. She would like a call to discuss. HAT ENGINEER Telephone Encounter - Robert Diehl M.D. - 01/01/2021 4:46 PM CST Absolutely and thank you very much for coordinating this HAT ENGINEER Addendum Note - Renny Mahoney R.N. - 01/01/2021 1:03 PM RED HAT ENGINEER Addended by: RENNY MAHONEY on: 01/01/2021 01:03 PM Modules accepted: Orders HAT ENGINEER Telephone Encounter - Renny Mahoney R.N. - 01/01/2021 12:45 PM CST I spoke to the patient by telephone today to discuss reinitiating warfarin. The patient referred by Dr. Argenis Diehl ([id number]). The patient's target INR is 2.0-3.0. 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 The anticipated duration of warfarin is intermediate designer. As per Dr. Diehl, the patient is to be instructed to discontinue the 325 mg aspirin once the target INR is reached. The patient shares that she is well aware of the risks/benefits and process of taking warfarin with regular INR monitoring. She declined the need for additional education by phone regarding anticoagulation. She would like to have her INRs drawn at [facility] with results faxed to us [facility]. I spoke with her local primary care physician nurse about this as well. Once Dr. Diehl obtains imaging in about 3 months, we may consider transitioning her anticoagulation care to her local [facility]. The patient will take 5 mg warfarin nightly starting tonight 01/01/21, then have an INR drawn 01/05/21 at [facility] with results faxed to us. A prescription for warfarin 5 mg #30, take as directed, may refill X 1 was eprescribed to [facility]. The patient reported an adequate understanding of her plan of care and expressed agreement with thisplan. RECOMMENDED LEVEL OF CARE. The patient/caller is willing and able to follow the nurse's recommendation. RESPONSE TO ADVICE GIVEN. Patient/caller able to teach back. REFERENCES UTILIZED. Nursing clinical judgment utilized. Other interventions or information: Provider advice. TYPE OF PHONE CALL. Medical information, care coordination. . HAT ENGINEER Addendum Note - Renny Mahoney R.N. - 01/01/2021 9:43 AM RED HAT ENGINEER Addended by: RENNY MAHONEY on: 01/01/2021 09:43 AM Modules accepted: Orders HAT ENGINEER Telephone Encounter - Renny Mahoney R.N. - 01/01/2021 9:32 AM CST I have spoken with the pharmacist at [facility] in [place]. He notes that in 2018 when thepatient previously was treated with warfarin, she was taking 5 mg nightly for a period of time. Eventually some nights she was taking 7.5 mg nightly. The pharmacist reviewed potential medication interactions with the patient's current medication list. No serious interactions anticipated. As per Dr. Yeboah ([phone]), we will initiate 5 mg nightly. She will continue aspirin until therapeutic INR is reached. HAT ENGINEER Telephone Encounter - Renny Mahoney R.N. - 01/01/2021 8:47 AM CST The patient has been experiencing episodes of vertigo, gait instability, with a fall, she was seen in the ED of [facility] on 12/22/20. Head CT was performed and sent to [facility] for Dr. Diehl's review. He noted possible new infarct in the right cerebellum. He ordered a CTA which shows recrudescence of right vertebral artery thrombus involving skull base and intradural segments. Dr. Diehl has advised resuming warfarin anticoagulation. I have telephoned the patient and we will initiate warfarin today, 5 mg nightly with an INR recheck on 01/05/21. I will also update the patient's primary care team at the [facility]. I have discussed this with the patient who reports an ad equate understanding and agreement with this plan. RECOMMENDED LEVEL OF CARE. The patient/caller is willing and able to follow the nurse's recommendation. RESPONSE TO ADVICE GIVEN. Patient/caller able to teach back. REFERENCES UTILIZED. Nursing clinical judgment utilized. Other interventions or information: Provider advice. TYPE OF PHONE CALL. Care coordination. HAT ENGINEER Telephone Encounter - Renny Mahoney R.N. - 01/01/2021 8:46 AM CST ----- Message from Robert Diehl M.D. sent at 12/31/2020 5:17 PM RED HAT ENGINEER ----- I called and discussed the results with Mrs. Mosquera She has a history of vertebral artery thrombus and was previously on anticoagulation now back on anti-platelet after spontaneous recanalization. She underwent local surgery in the last few months. She has also had a mechanical fall in the last few months. She is active smoking and intermittent medical cannabis use for her chronic pain syndrome. On December 20 she developed gait instability and dizziness. Ultimately she came to medical attention at a local emergency department where she received a head CT. I am uncertain what additional follow-up was scheduled at that time. The images were pushed here to our attention which demonstrate the subacute right cerebellar infarct which would be a new event. Due to limitations for obtaining quick MRI I ordered a CT angiogram of the head and neck which again redemonstrates a subacute finding of theright cerebellar hemispheric infarcts. The CT angiogram unfortunately demonstrates recrudescence of the right vertebral artery thrombus and it is involving skull base and intradural segments. We then discussed returning to anticoagulation for her luminal thrombus. We discussed the risks and benefits of anticoagulation but given that this event likely happened sometime slightly before December 22 the risks of bleeding I think are smaller in comparison to the risk of additional ischemic event. I have ordered a referral for our Coumadin Clinic to initiate Coumadin, and I have asked her to takea full-dose aspirin in the interim until she can be therapeutically anticoagulated. I think driftingto therapeutic INR would minimize the risk of hemorrhagic transformation in this case. I will send a letter to the patient's primary care provider Dr. Blackwell with an update and potentially request that warfarin therapy be coordinated locally. Given the relatively urgent nature I am happy to have the patient travel here to initiate warfarin. She will require three month noninvasive image and I will place that order now. Discussed that if she develops any additional stroke-like symptoms acute onset headache sleepiness or any other focal deficits which were reviewed to re- presented to her local emergency department. She is awaiting a call from our desk to schedule the Coumadin Clinic. 25 minutes on the phone Electronically signed by: Robert Diehl M.D. 12/31/20 5:16 PM RED HAT ENGINEER Stroke Cerebrovascular Accident Personal History Plan: CT Head without IV Contrast, CT Head without IV Contrast Ataxia Plan: CT Head Neck Angiogram with IV Contrast, CT Head Neck Angiogram with IV Contrast HAT ENGINEER documented in this encounter Plan of Treatment Scheduled Orders Name Type Priority Associated Diagnoses Order S chedule Prothrombin Time (PT) Lab Routine [facility] Anticoagu lant 50 Occurrences starting Treatment 01/01/2021 unti l 01/01/2024 documented as of this encounter Visit Diagnoses Diagnosis Facility Manager Histology (Current) Anticoagulant Treatm ent - Primary documented in this encounter Additional Health Concerns Assessment Noted Time PHQ-9 Depression Total Score: 5 04/05/2019 8:00 AM CDT documented as of this encounter
--- OUTSIDE RECORDS SUMMARY | 2022-07-06 14:54 | XMS_ITS | Encounter Summary ---
:1965 Author Organization [facility] Address [address] [place] [address] Care Team Providers Name Role Phone Unavailable Primary Care Provider Unavailable Encounter Details Date Type Department Care Team Description 01/20/2021 Anticoagulation Visit Department of Neurology Elvira Villalta in [facility] raúl SkaggsNBritton [address] [facility] [address] [place] [phone] Social History Tobacco Use Types Packs/Day Years [...] attend latter day or Patient refused 2021 latter-day services? Do [...] documented as of this encounter Progress Notes Elvira Villalta R.N. - 01/20/2021 11:58 AM CST I received a call from Dr. Rosalva Aguila's nurse at [facility]. She states they have received our fax on patient's current anticoagulation management and Dr. Blackwell approves transfer of care back to them. I called and discussed this with the patient. Ms. Mosquera verbalizes understanding and appreciation for our care. RECOMMENDED LEVEL OF CARE. The patient/caller is willing and able to follow the nurse's recommendation. RESPONSE TO ADVICE GIVEN. Patient/caller able to teach back. REFERENCES UTILIZED. Nursing clinical judgment utilized. Other interventions or information: Provider advice. TYPE OF PHONE CALL. Transfer of anticoagulation management back to PCP. STRIAL SAFETY AND HEALTH MANAGER documented in this encounter Plan of Treatment Not on filedocumented as of this encounter Visit Diagnoses Not on filedocumented in this encounter Additional Health Concerns Assessment Noted Time PHQ-9 Depression Total Score: 5 04/05/2019 8:00 AM CDT documented as of this encounter
--- OUTSIDE RECORDS SUMMARY | 2022-07-06 14:54 | XMS_ITS | Encounter Summary ---
:1965 Author Organization [facility] Address [address] [place] [address] Care Team Providers Name Role Phone Unavailable Primary Care Provider Unavailable Encounter Details Date Type Department Care Team Description 01/07/2021 Anticoagulation Visit Department of Neurology Zuly Alex in [facility] raúl SkaggsNBritton [address] [facility] [address] [place] [phone] Social History Tobacco Use Types Packs/Day Years [...] you attend mu-ism or Patient refused 2021 congregational services? Do [...] encounter Progress Notes Zuly Alex R.N. - 01/07/2021 4:20 PM CST Patient's INR today is 2.28. Discussed with Dr. Ashley Castrejon ([id number]) who advises that the patient take 5 mg of warfarin this evening and evening (01/07/21, 01/08/21), then have an INR recheck in two days. Relayed these directions to the patient by telephone who reports an adequate understanding of the plan and denies noting any signs of bleeding or recurrent stroke-like symptoms. Will schedule an INR recheck for 01/09/21. RECOMMENDED LEVEL OF CARE. The patient/caller is willing and able to follow the nurse's recommendation. RESPONSE TO ADVICE GIVEN. Patient/caller able to teach back. REFERENCES UTILIZED. Nursing clinical judgment utilized. Other interventions or information: Provider advice. TYPE OF PHONE CALL. Test results, symptom assessment. IATIVE MEDICINE PHYSICIAN documented in this encounter Plan of Treatment Not on filedocumented as of this encounter Procedures Procedure Name Priority Date/Time Associated Diagnosis Comme nts PROTHROMBIN TIME (PT), Routine 01/07/2021 Resul ts for this P procedure are i n the results section . documented in this encounter Results Prothrombin Time (PT) (01/07/2021) P athologist Signature EXT INR 2.28 OTHER (SPECIFY IN HEALTH AND SAFETY INSPECTOR) Specimen (Source) Anatomical Location Collection Method / Collectio n Time Received Time / Laterality Volume Blood (Blood, 01/07/2021 Venous) Narrative This result has an attachment that is no t available. Historical Provider LAB BLOOD ADD-ON Performing Organization Address City/State/ZIP Code Phon e Number OTHER (SPECIFY IN HEALTH AND SAFETY INSPECTOR) OTHER (SPECIFY IN HEALTH AND SAFETY INSPECTOR) N/A documented in this encounter Visit Diagnoses Not on filedocumented in this encounter Additional Health Concerns Assessment Noted Time PHQ-9 Depression Total Score: 5 04/05/2019 8:00 AM CDT documented as of this encounter
--- OUTSIDE RECORDS SUMMARY | 2022-07-06 14:54 | XMS_ITS | Encounter Summary ---
:1965 Author Organization [facility] Address [address] [place] [address] Care Team Providers Name Role Phone Unavailable Primary Care Provider Unavailable Reason for Visit Reason Comments Michel Encounter Details Date Type Department Care Team Description 09/11/2020 Clinical Communication Department of Robert Diehl [facility] in [place], [place] [address] [facility] 200 [place] [phone] Social History Tobacco Use Types Packs/Day Years [...] you attend mormonism or Patient refused 2021 voodoo services? Do [...] Telephone Encounter - Robert Diehl M.D. - 09/12/2020 4:35 PM CDT This should be resolved now correct? documented in this encounter Plan of Treatment Not on filedocumented as of this encounter Visit Diagnoses Not on filedocumented in this encounter Additional Health Concerns Assessment Noted Time PHQ-9 Depression Total Score: 5 04/05/2019 8:00 AM CDT documented as of this encounter
--- OUTSIDE RECORDS SUMMARY | 2022-07-06 14:54 | XMS_ITS | Encounter Summary ---
:1965 Author Organization [facility] Address [address] [place] [address] Care Team Providers Name Role Phone Unavailable Primary Care Provider Unavailable Encounter Details Date Type Department Care Team Description 09/15/2020 Ancillary Procedure Department of Robert Diehl Aneurysm Radiology jimmy Celaya M.D. Nonruptured (HCC) [place], [place] [address] [facility] [address] [place] [phone] Social History Tobacco Use Types Packs/Day Years [...] you attend advent or Patient refused 2021 alevism services? Do [...] Comments Diagnosis INTERPRETATION OF RAD - Routine 09/15/2020 3:48 Sunshine Aneurysm Resu lts for OUTSIDE MR HEAD (most inpatients PM CDT Nonruptured (HCC) thi s procedure and all are in the outpatients) results [...] nt right vertebral artery. RADHA, MCA, and semiconductor wafer inspector are patent. Neck MRA: Conventional three-vessel arch [...] nt right vertebral artery. RADHA, MCA, and semiconductor wafer inspector are patent. Neck MRA: Conventional three-vessel arch anatomy. Origins of the vertebral and carotid arteries are patent. No high gra de stenoses of the cervical arteries. IMPRESSION: No change in the left paraclinoid aneury sm. Additional 1-2 mm aneurysms off of the terminal left ICA a nd right M1 segment as detailed in the findings. Robert NIELSON MRI PROCEDURES documented in this encounter Visit Diagnoses Diagnosis Sunshine Aneurysm Nonruptured (HCC) documented in this encounter Additional Health Concerns Assessment Noted Time PHQ-9 Depression Total Score: 5 04/05/2019 8:00 AM CDT documented as of this encounter
--- OUTSIDE RECORDS SUMMARY | 2022-07-06 14:54 | XMS_ITS | Encounter Summary ---
:1965 Author Organization [facility] Address [address] [place] [address] Care Team Providers Name Role Phone Unavailable Primary Care Provider Unavailable Encounter Details Date Type Department Care Team Description 01/05/2021 Anticoagulation Visit Department of Neurology Elvira Villalta in [facility] slab puller RBrittonNBritton [address] [facility] [address] [place] [phone] Social History Tobacco Use Types Packs/Day Years [...] or relatives? How often do you attend yazdanism or Patient refused 2021 lutheran services? Do you belong to any clubs or No 05/17/2022 organizations such as yazdanism groups, unions, fraternal or athletic groups, or [...] encounter Progress Notes Elvira Villalta R.N. - 01/05/2021 4:06 PM CST The patient was due for an INR at her outside clinic in [place], [place] today and I called the lab [phone] and was told she did not report to the lab today. I then called the patient and she states she has been trying to call to get an appointment but has been unsuccessful. I advised she go to the lab without the appointment because she needs to have it done and the lab is usually less busy inthe afternoon. I assured her an order was in place for her blood work. The patient states she has a nurse that comes to the house and wonders if she can have that nurse draw the INR. I advised for today, she report to the [place] lab as scheduled. Ms. Mosquera states she will do that. RECOMMENDED LEVEL OF CARE. The patient/caller is willing and able to follow the nurse's recommendation. RESPONSE TO ADVICE GIVEN. Patient/caller able to teach back. REFERENCES UTILIZED. Nursing clinical judgment utilized. Other interventions or information: Provider advice. TYPE OF PHONE CALL. INR management N GRINDER Elvira Villalta R.N. - 01/05/2021 4:06 PM CST Patient's INR today is 1.47. Discussed with Dr. Neri Acevedo ([id number]) who advises that the patient take 7.5 mg of warfarin this evening, take 5 mg on Tuesday evening, 01/06/21, then have an INR recheck in two days. Relayed these directions to the patient by telephone who reports an adequate understanding of the plan and denies noting any signs of bleeding or recurrent stroke-like symptoms. Will schedule an INR recheck for 01/07/21. RECOMMENDED LEVEL OF CARE. The patient/caller is willing and able to follow the nurse's recommendation. RESPONSE TO ADVICE GIVEN. Patient/caller able to teach back. REFERENCES UTILIZED. Nursing clinical judgment utilized. Other interventions or information: Provider advice. TYPE OF PHONE CALL. Test results, symptom assessment. N GRINDER documented in this encounter Plan of Treatment Not on filedocumented as of this encounter Procedures Procedure Name Priority Date/Time Associated Comments Diagnosis PROTHROMBIN TIME Routine 01/05/2021 3:15 PM Resul ts for this (PT), P ORGAN GRINDER procedure are i n the results section. documented in this encounter Results Prothrombin Time (PT) (01/05/2021 3:15 PM ORGAN GRINDER) P athologist Signature EXT INR 1.47 OTHER (SPECIFY IN CERAMIC PLATER) Specimen (Source) Anatomical Collection Method Collection Time Re ceived Time Location / / Volume Laterality Blood (Blood, 01/05/2021 3:15 PM Venous) ORGAN GRINDER Narrative This result has an attachment that is no t available. Resulting Agency Comment [facility] Historical Provider LAB BLOOD ADD-ON Performing Organization Address City/State/ZIP Code Phon e Number OTHER (SPECIFY IN CERAMIC PLATER) OTHER (SPECIFY IN CERAMIC PLATER) N/A documented in this encounter Visit Diagnoses Not on filedocumented in this encounter Additional Health Concerns Assessment Noted Time PHQ-9 Depression Total Score: 5 04/05/2019 8:00 AM CDT documented as of this encounter
--- OUTSIDE RECORDS SUMMARY | 2022-07-06 14:54 | XMS_ITS | Encounter Summary ---
:1965 Author Organization [facility] Address [address] [place] [address] Care Team Providers Name Role Phone Unavailable Primary Care Provider Unavailable Reason for Visit Reason Comments Tahmina/Fazal Encounter Details Date Type Department Care Team Description 01/26/2021 Clinical Communication Department of Robert Diehl [id number]/[id number] Neu[facility] in .. [place], [place] 200 [facility] 200 [place] [phone] Social History Tobacco Use Types Packs/Day Years [...] you attend [employer] or Patient refused 2021 muslim services? Do [...] Telephone Encounter - Robert Diehl M.D. - 01/26/2021 5:19 PM CST Great thank you IFIED FLEX ENDOSCOPE REPROCESSOR Addendum Note - Robert Diehl M.D. - 01/26/2021 2:50 PM CERTIFIED FLEX ENDOSCOPE REPROCESSOR Addended by: ROBERT DIEHL on: 01/26/2021 02:50 PM Modules accepted: Orders IFIED FLEX ENDOSCOPE REPROCESSOR Telephone Encounter - Robert Diehl M.D. - 01/26/2021 2:49 PM CST Believe MRI is ordered now. IFIED FLEX ENDOSCOPE REPROCESSOR Telephone Encounter - Robert Diehl M.D. - 01/26/2021 2:47 PM CST I am sorry to learn of the patient's additional symptoms Unfortunately we cannot react as quickly as the emergency department which was recommended locally I will order a brain MRI and in-person or video visit to follow-up. Thank you IFIED FLEX ENDOSCOPE REPROCESSOR Telephone Encounter - Allyssa Amaya - 01/26/2021 12:56 PM CST Patient calls checking the status of this request. Thank you. IFIED FLEX ENDOSCOPE REPROCESSOR documented in this encounter Plan of Treatment Not on filedocumented as of this encounter Visit Diagnoses Diagnosis Stroke Cerebrovascular Accident Personal History - Primary documented in this encounter Additional Health Concerns Assessment Noted Time PHQ-9 Depression Total Score: 5 04/05/2019 8:00 AM CDT documented as of this encounter
--- OUTSIDE RECORDS SUMMARY | 2022-07-06 14:54 | XMS_ITS | Encounter Summary ---
:1965 Author Organization [facility] Address [address] [place] [address] Care Team Providers Name Role Phone Unavailable Primary Care Provider Unavailable Encounter Details Date Type Department Care Team Description 12/31/2020 Orders Only Department of Robert Diehl Stroke Cereb rovascular Accident Personal History (Primary Dx); Neurology in [place] Thrombosis Arterial (HCC) [place], [place] 200 [facility] 200 [place] [phone] Social History Tobacco Use Types Packs/Day Years [...] or relatives? How often do you attend anabaptism or Patient refused 2021 holiness services? Do you belong to any clubs or No 05/17/2022 organizations such as anabaptism groups, unions, fraternal or athletic groups, or [...] Stroke Cerebrovascular Accident Personal History - Primary Thrombosis Arterial (HCC) documented in this encounter Additional Health Concerns Assessment Noted Time PHQ-9 Depression Total Score: 5 04/05/2019 8:00 AM CDT documented as of this encounter
--- OUTSIDE RECORDS SUMMARY | 2022-07-06 14:54 | XMS_ITS | Encounter Summary ---
:1965 Author Organization [facility] Address [address] [place] [address] Care Team Providers Name Role Phone Unavailable Primary Care Provider Unavailable Reason for Referral MRI/CAT/PET Scan (Routine) - Closed Specialty Diagnoses / Procedures Referred By Contact Refer red To Contact Radiology Diagnoses Ataxia Robert Diehl M.D. [facility] Procedures CT Head Neck Angiogram with IV Contrast [address] [place], [place] [address] Referral ID Status Reason Start Date Expiration Date Visits Requ ested Visits Authorized [id number] Closed 12/31/2020 12/31/2021 1 1 NEW GRADUATE Reason for Visit MRI/CAT/PET Scan (Routine) - Closed Specialty Diagnoses / Procedures Referred By Contact Refer red To Contact Radiology Diagnoses Ataxia Robert Diehl M.D. [facility] Procedures CT Head Neck Angiogram with IV Contrast [address] [place], [place] [address] Referral ID Status Reason Start Date Expiration Date Visits Requ ested Visits Authorized [id number] Closed 12/31/2020 12/31/2021 1 1 Encounter Details Date Type Department Care Team Description 01/30/2021 Hospital Encounter Department of Radiology [place] Diehl, Ataxia in [facility] raúl Quintana [address] [facility] [address] [place] [address] [place], [place] [phone] (Wo rk) Social History Tobacco Use Types [...] you attend religion or Patient refused 2021 pentecostal services? Do you belong to any clubs or No 05/17/2022 organizations such as religion groups, unions, fraternal or athletic groups, or [...] needed for wheezing or shortness of breath. benzonatate (TESSALON Take 100 mg by mouth 6 02/27 PERLES) 100 mg capsule 3 (three) times a day as needed for cough. cetirizine (ZyrTEC) 10 mg Take 10 mg by mouth 0 tablet 2 (two) times a day. cholecalciferol (VITAMIN Take 125 mcg by 0 D3) 125 mcg (5,000 Unit) mouth every morning. tablet diazePAM (VALIUM) 10 mg Take 10 mg by mouth 0 tablet 2 (two) times a day as needed. esomeprazole (NexIUM) 40 Take 40 mg by mouth [address] capsule 2 (two) times a day before breakfast and dinner. FLUoxetine (PROzac) 40 mg Take 80 mg by mouth 0 capsule every morning. furosemide (LASIX) 40 mg Take 40 mg by mouth 0 tablet daily. ipratropium-albuteroL Inhale 3 mL by 0 01/16/2021 (DUONEB) 0.5-2.5 mg/3 mL nebulization 4 nebulizer solution (four) times a day as needed for [...] 01/16/2010 (ZOFRAN-ODT) 8 mg mouth 3 (three) disintegrating tablet times a day as needed for nausea. polyethylene glycol Take 17 g by mouth 0 04/11/20 17 (MIRALAX) 17 gram/dose as needed for oral powder constipation. pregabalin (LYRICA) [...] (ZONEGRAN) 100 Take 300 mg by mouth 8 02/22/2019 mg capsule 2 (two) times a day. albuterol (ACCUNEB) 2.5 Inhale 1 vial every 0 02/02/2021 mg /3 mL nebulizer 6 (six) hours as solution needed for shortness of breath. alum-mag hydroxide-simeth Take 30 mL by mouth 0 0 01/16/2010 02/02/2021 (MAALOX ADVANCED) every 4 (four) hours 200-200-20 mg/5 mL as needed for suspension indigestion or heartburn. ARTHRITIS PAIN RELIEF, TAKE TWO TABLETS 6 019 01/01/2022 ACETAM, 650 mg ER tablet (1300MG) BY MOUTH EVERY EIGHT HOURS aspirin [address] tablet 81 mg daily. Last 3 10/3102/03/2021 taken 11/28/18 atorvastatin (LIPITOR) 40 Take 1 tablet (40 mg 30 tablet 11 03/31/2019 02/17/2021 mg tablet total) by mouth at bedtime. biotin 5 mg tablet Take 5 mg by mouth 0 02/02/2021 every morning. budesonide-formoterol Inhale 2 puffs 2 0 02/02/2021 (SYMBICORT) 160-4.5 (two) times a day. mcg/actuation inhaler clindamycin (CLINDAGEL) 1 as needed. 0 11/13/2019 02/02/2021 % gel cyanocobalamin, vitamin Place 2,500 mcg 3 019 02/26/2022 B-12, 2,500 mcg tablet, under the tongue sublingual every morning. dihydroergotamine Administer 1 spray 1 03/28/2019 02/02/2021 (MIGRANAL) 0.5 mg/pump into each nostril as act. (4 mg/mL) nasal directed. 1 spray spray into each nostril as needed; may repeat every 15 minutes, max dose of 6 sprays/day; 8 sprays/week diphenhydrAMINE Take 25-50 mg by 0 06/2021 (BENADRYL) 25 mg capsule mouth at bedtime as needed for sleep. sleep doxycycline hyclate 0 07/31/202002/02 (VIBRAMYCIN) 100 mg capsule estradiol (VIVELLE-DOT) APPLY 1 PATCH TWICE 11 10/201902/02/2021 0.1 mg/24 hr patch WEEKLY on and Tuesday Flovent HFA 110 Inhale 2 puffs 2 0 01/19/202111/2021 mcg/actuation inhaler (two) times a day. fluticasone propionate Administer 2 sprays 0 04/2802/02/2021 (FLONASE) 50 into affected mcg/actuation nasal spray nostril(s) at bedtime. fluticasone propionate Administer 2 sprays 64 g 11 12/2902/02/2021 (FLONASE) 50 into each nostril at mcg/actuation nasal spray bedtime. SENSIMIST folic acid (FOLVITE) 800 Take 800 mcg by 0 201802/02/2021 mcg tablet mouth every morning. lidocaine (LIDODERM) 5 % Apply 1 patch to 0 01/1902/02/2021 painful area of skin for up to 12 hours within a 24-hour period as needed for pain metoclopramide (REGLAN) Take 10 mg by mouth 11 02/02/2021 10 mg tablet 3 (three) times a day as needed for nausea. mometasone-formoterol 2 puffs 2 (two) 0 7 02/02/2021 (DULERA) 200-5 times a day. mcg/actuation inhaler nicotine (NICODERM CQ) 14 Apply 14 mg patch 14 patch 3 01/201902/02/2021 mg/24 hr patch daily for four to six weeks, then taper to 7 mg for two to six weeks until off. oxyCODONE (ROXICODONE) 10 Take 10 mg by mouth every 4 (four) hours as needed for pain. Max 4 tablets/day 0 08/23/2020 01/01/20 22 mg IR tablet Takes daily phentermine (ADIPEX-P) 37.5 mg every 2 10/16/2019 02/02/2021 37.5 mg tablet morning. potassium chloride Take 10 mEq by mouth 0 02/02/2021 (KLOR-CON M) 10 mEq ER 2 (two) times a day tablet with meals. pregabalin (LYRICA) 150 Take 300 mg by mouth 0 02/02/2021 mg capsule 2 (two) times a day. 1 cap in the morning, 2 caps at night. promethazine (PHENERGAN) Take 25 mg by mouth 0 02/02/2021 25 mg tablet every 6 (six) hours as needed for nausea. Refresh Tears 0.5 % 0 12/03/201902/02 ophthalmic solution RESTASIS 0.05 % Administer 1 drop 0 12/22/2018 ophthalmic emulsion into both eyes 2 (two) times a day. rOPINIRole (REQUIP) 2 mg 2 mg daily as 0 11/13/20 19 02/02/2021 tablet needed. SPIRIVA RESPIMAT 2.5 Inhale 2 puffs every 0 01/0902/02/2021 mcg/actuation inhaler morning. UNABLE TO FIND Take 1 each by mouth 0 03/11/2021 as needed. Med Name: Medical Marijuana Capsule warfarin (COUMADIN) 5 mg Take as directed: 30 tablet 1 02/202102/03/2021 tablet starting dose 5 mg nightly. documented as of this encounter Plan of Treatment Not on filedocumented as of this encounter Procedures Procedure Name Priority Date/Time Associated Comments Diagnosis CT HEAD NECK RAD - Routine 01/30/2021 3:24 Ataxia Results for this ANGIOGRAM WITH IV (most inpatients PM RN NEW GRADUATE proced ure are in CONTRAST and all the results outpatients) section. documented in this encounter Results CT Head Neck Angiogram with IV Contrast (01/30/2021 3:24 PM RN NEW GRADUATE) Anatomical Region Laterality Modality Head and Neck, Neuroradiology RST LOS, N/A C omputed Tomography, Computed Neuroradiology ARZ LOS, Neuroradiology T omography FLA LOS Specimen (Source) Anatomical Collection Method Collection Time Re ceived Time Location / / Volume Laterality 01/30/2021 2:25 PM RN NEW GRADUATE Impressions 01/30/2021 3:18 PM RN NEW GRADUATE 1. 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 Slightly decreased high-grade stenosis a t the V3/4 junction with increased flow in the distal V4 segment. 2. Evolving, now chronic right cerebella r infarct. 3. 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 Narrative 01/30/2021 3:18 PM RN NEW GRADUATE EXAM: CT HEAD NECK ANGIOGRAM WITH IV [...] normal caliber bilater al MCAs, ACAs and oracle solutions architect. Patent anterior and right posterior communicating arteri [...] normal caliber bilater al MCAs, ACAs and oracle solutions architect. Patent anterior and right posterior communicating arteri [...] ICA supraclinoid and para clinoid aneurysms. Robert Diehl M.D. [facility] CT PROCEDURES documented in this encounter Visit Diagnoses Diagnosis Ataxia documented in this encounter Administered Medications Inactive Administered Medications - up to 3 most recent administrations Medication Order MAR Action Action Date Dose Rate Site iohexoL 350 mg iodine/mL solution Given 01/30/2021 2:29 PM RN NEW GRADUATE 1 00 mL 1-200 mL (OMNIPAQUE) 1-200 mL, intravenous, Once in imaging, contrast, Starting on Tue01/30/21 at 1355, For 1 dose, Imaging Protocol Orders, Dose per Radiant Medication Guidelines sodium chloride (PF) 0.9 % injection 1-1 00 mL Given 01/30/2021 2:29 PM RN NEW GRADUATE 35 mL 1-100 mL, intravenous, Once, On Tue01/30/21 at 1400, For 1 dose, Imaging Protocol Orders documented in this encounter Additional Health Concerns Assessment Noted Time PHQ-9 Depression Total Score: 5 04/05/2019 8:00 AM CDT documented as of this encounter
--- OUTSIDE RECORDS SUMMARY | 2022-07-06 14:54 | XMS_ITS | Encounter Summary ---
:1965 Author Organization [facility] Address [address] [place] [id number] Care Team Providers Name Role Phone Unavailable Primary Care Provider Unavailable Reason for Referral Outpatient (Routine) - Closed Specialty Diagnoses / Procedures Referred By Contact Refer red To Contact Home Health Care Diagnoses Stroke (HCC) Chronic Pain Syndrome Stroke Cerebrovascular Accident Personal History Ric Quinn M.D., M.S. [address] [place] [id number] Referral ID Status Reason Start Date Expiration Date Visits Requ ested Visits Authorized [id number] Closed 02/03/2021 02/03/2022 1 1 SELING PROGRAM LEADER Encounter Details Date Type Department Care Team Description 01/31/2021 - Hospital Encounter [facility] Blanca, Stroke (H CC) (Primary Dx); [facility], [address] [place] [address] Stroke Cerebrovascular Accident Personal History [facility], [facility] [phone] floor [phone] [place] [address] (Work) [place], [place] [phone] (Fax) [phone] Social History Tobacco Use Types Packs/Day Years [...] or relatives? How often do you attend latter-day or Patient refused 2021 zoroastrianism services? Do you belong to any clubs or No 05/17/2022 organizations such as latter-day groups, unions, fraternal or athletic groups, or [...] Sign Reading Time Taken Comments Blood Pressure 133/71 02/03/2021 5:15 PM COUNSELING PROGRAM LEADER Pulse 92 02/03/2021 5:15 PM COUNSELING PROGRAM LEADER Temperature 36.5 ??C (97.7 ??F) 02/03/2021 5:15 PM COUNSELING PROGRAM LEADER Respiratory Rate 17 02/03/2021 5:15 PM COUNSELING PROGRAM LEADER Oxygen Saturation 97% 02/03/2021 5:15 PM COUNSELING PROGRAM LEADER Inhaled Oxygen Concentration - - Weight 78.8 kg (173 lb 11.6 oz) 01/31/2021 9:39 PM COUNSELING PROGRAM LEADER Height 152.4 cm (5') 01/31/2021 9:39 PM COUNSELING PROGRAM LEADER Body Mass Index 33.93 01/31/2021 9:39 PM COUNSELING PROGRAM LEADER documented in this encounter Discharge Summaries Malcom Torres M.D. - 02/03/2021 2:24 PM CST DISCHARGE SUMMARY BRIEF OVERVIEW Hospital: [facility] Discharge Provider: Nan Rios M.D. Primary Team: [facility] Neurology Stroke and Cerebrovascular Disease No primary care provider on file. Primary Care Provider Phone Number: None Primary Care Provider Fax Number: None Admission Date: 01/31/2021 Discharge Date: 02/03/2021 PRIMARY DIAGNOSIS Stroke (HCC) SECONDARY DIAGNOSES Principal Problem: Stroke (HCC) Resolved Problems: * No resolved hospital problems. * DISCHARGE DISPOSITION Home-Health Care Svc [6] ACTIVE ISSUES REQUIRING FOLLOW UP Please stop taking warfarin Please stop taking aspirin Please start taking apixaban 5 mg twice daily Please continue taking the remainder of your home medications Please follow up with Dr. Diehl in clinic after obtaining CT angiogram of head/neck OUTPATIENT FOLLOW UP Scheduled Appointments 04/28/2021 1:00 PM Robert Diehl M.D. Neurology For appointment details refer to your Patient Appointment Guide. 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 ?? These episodes of acute onset headache and vertigo initially began in March 2019 at which time she wasfound to have an occlusive thrombus in the distal R vertebral artery with bilateral cerebellar/occipital infarcts on MRI. She was subsequently anticoagulated with warfarin for a duration of 6 months atwhich time she was transitioned to aspirin 325 on 10/02/19. Follow-up imaging in August 2020 demonstrated resolution of her thrombus with plain to continue aspirin. ?? Unfortunately, she again began experiencing severe vertigo on December 22 2020 prompting a local EDvisit at which time she was discharged on meclizine with minimal improvement in her symptoms. She subsequently underwent CT imaging on December 31, 2020 which demonstrated an evolving right cerebellarinfarct as well as a mildly expansile near occlusive thrombus in the right vertebral artery. The plan at that time was to initiate warfarin with a slow drift towards therapeutic INR while bridging on full dose aspirin to avoid risk of hemorrhagic transformation. She has subsequently had labile INRs requiring re- dosing of her warfarin as well as recurrent episodes of headache and vertigo. ?? She presented again to H on January 25 for similar symptoms with plan to undergo MRI/MRA. For ease of time she underwent CT head and neck angiogram on January 30 2021 which demonstrated partial interval recanalization of her right vertebral artery dissection, slightly decreased high grade vertebral artery stenosis, and an evolving chronic right cerebellar infarct. ?? On 01/31 the patient notes she was shopping when she developed sudden onset pain in the right posterior neck with radiation to the crown of her head when bending down. Upon standing straight she developed vertigo described as a sensation of room spinning with associated diaphoresis, nausea, and generalized warmth. She notes making it to her car with great effort due to difficulty walking following which her son took her an outside Emergency Department. ?? Per ATC triage note, the patient was hemodynamically stable and afebrile on presentation. INR at that time was 1.35. NCHCT demonstrated a cerebellar infarct and a right vertebral artery dissection. Shewas subsequently admitted directly to [facility] Neurology Stroke service for further workup and management. ?? On arrival to the floor, the patient remains hemodynamically stable and afebrile. She continued to endorse headache and vertigo, which did improved compared to when she was admitted. She was started onapixaban 5 mg twice daily in favor of her warfarin. An MRI brain with and without contrast was obtained which revealed infarctions in the posterior circulation of differing ages, likely recent acute/subacute, subacute to chronic, and chronic. An MRA was also obtained which revealed relatively high-grade narrowing of the distal V3 segment of the right vertebral artery and mild narrowing of the proximal V4 segment of the right vertebral artery. Reassuringly, there was no worsening of the degree of stenosis and no extension of the length of the stenotic/thrombotic segment. She was seen by the brain rehab team who recommend continued physical therapy at home and family will provide 24 hour supervision. She will follow up with Dr. Diehl after a CTA head/neck in 3 months. Physical Exam: Blood pressure 99/78, pulse 70, temperature 36.3 ??C, temperature source Oral, resp. rate 17, ukmkuf538.4 cm, weight 78.8 kg, SpO2 94 %. Body mass index is 33.93 kg/m??. Physical Exam: Constitutional: well-developed, well-nourished, resting comfortably in bed Lungs: Breathing comfortably on room air. Cardiac: regular rate and rhythm Abdomen: Soft, non-tender, non-distended.?? Skin: No rash on exposed skin.? Neurologic: Mental status: Alert and oriented to time, place and person Speech: Clear.?? Language: No evidence of aphasia. (Naming, reading, repetition and comprehension are intact.) Cranial nerves: PERRL, EOMI, mild horizontal nystagmus with rightward gaze, visual jhaveri intact to confrontation, facial movements full and symmetric, tongue protrudes in midline, there is equal elevation of the soft palate, shoulder shrug is appropriate in strength. Motor: normal strength in RUE, RLE, LLE, exam in LUE limited due to recent shoulder surgery. Coordination: mild ataxia with finger to nose on right, exam limited on the left due to pain from recent shoulder surgery. Heel to montes normal bilaterally?? Final NIHSS Score: 0 CONSULTS ORDERED DURING THIS ADMISSION IP CONSULT TO PHYSICAL MEDICINE & REHABILITATION IP CONSULT TO INTERNAL MEDICINE NICOTINE DEPENDENCE IP CONSULT TO CARE MANAGEMENT IP CONSULT TO INTERNAL MEDICINE NICOTINE DEPENDENCE CONDITION AT DISCHARGE stable Discharge instructions were provided to the patient and caregiver(s). SELING PROGRAM LEADER documented in this encounter Discharge Instructions Discharge InstructionsLaquita Raines - 02/02/2021 7:23 AM CST You were discharge from the Neurology Stroke Service. Please Identify this service name if you call with questions after your hospitalization. SELING PROGRAM LEADER Discharge Instr - ActivityLeonides Liang P.T. - 02/02/2021 1:13 PM COUNSELING PROGRAM LEADER Physical Therapy Discharge Summary MOBILITY RESTRICTIONS/PRECAUTIONS: Fall risk and Other: recent left Reverse shoulder total shoulder arthroplasty, limited wt.bearing.; recommending use of a walker; recommending home with supervision initially for 24 to 48 hours, then intermittent as needed CURRENT FUNCTIONAL STATUS: modified independent with transfers and ambulation with front wheeled walker on level surfaces; patient has not maximized return and function and would benefit from some outpatient physical therapy to get back to baseline. RECOMMENDATIONS: Recommend physical therapy evaluate and treat. Frequency and duration to be determined by the evaluating therapist. Discharge information provided on 02/02/2021 by Leonides Liang P.T. Contact information: [facility], [address], SELING PROGRAM LEADER AttachmentsThe following attachments cannot be sent through Care Everywhere. Apixaban (By mouth) (Bahamian)Nicotine (Absorbed through the skin) (Bahamian) Nicotine (By breathing) (Bahamian)Nicotine (Into the nose) (Bahamian)documented in this encounter Medications at Time of [...] Use up to 10 capsules per day. apixaban (ELIQUIS) 5 mg Take 1 tablet (5 mg 60 tablet 0 06/202102/17/2021 tablet total) by mouth 2 (two) times a day. ARTHRITIS PAIN RELIEF, TAKE TWO TABLETS 6 019 01/01/2022 ACETAM, 650 mg ER tablet (1300MG) BY MOUTH EVERY EIGHT HOURS atorvastatin (LIPITOR) Take 1 tablet (40 mg 30 tablet 11 02/201902/17/2021 40 mg tablet total) by mouth at bedtime. cyanocobalamin, vitamin Place 2,500 mcg under 3 0 02/08/2019 02/26/2022 B-12, 2,500 mcg tablet, the tongue every sublingual morning. diphenhydrAMINE Take 25-50 mg by 0 (BENADRYL) 25 mg tablet mouth every 6 (six) hours as needed for itching. Flovent HFA 110 Inhale 2 puffs 2 0 01/19/202111/2021 mcg/actuation inhaler (two) times a day. nicotine (Nicoderm CQ) Apply 21 mg patch 14 patch 5 202002/17/2021 14 mg/24 hr patch daily for 4-6 weeks, then taper by 7-14 mg steps every 2-[address] on file nicotine (Nicoderm CQ) Apply 21 mg patch 14 patch 5 202002/17/2021 21 mg/24 hr patch daily for 4-6 weeks, then taper by 7-14 mg steps every 2-6 weeks until off. nicotine (Nicoderm CQ) 7 Apply 21 mg patch 14 patch 5 07/202102/17/2021 mg/24 hr patch daily for 4-6 weeks, then taper by 7-14 mg steps every 2-6 weeks until off. Pharmacy - Place on file nicotine (NICOTROL NS) 1-2 sprays every 1-2 [...] documented as of this encounter Progress Notes Makenzie Figueredo O.T.A. - 02/03/2021 3:47 PM CST Occupational Therapy Acute Hospital Inpatient Progress Note SUBJECTIVE Patient's Name: Angie Bender Reason for Referral: OT to evaluate and treat- Brain Medical Diagnosis: 1. Stroke (HCC) 2. Chronic Pain Syndrome 3. Stroke Cerebrovascular Accident Personal History History of Present Illness: # Acute onset vertigo # Right vertebral artery thrombus on warfarin# Query right vertebral artery dissection# Subtherapeutic INR # Chronic right cerebellar infarct# Left occipital encephalomalacia # History of posterior circulation embolic infarcts - 03/2019# Left ICA supracl inoid and paraclinoid aneurysms Onset Date: 01/31/21 Patient/Caregiver Goals: To return home with same level of support Patient Comments: I know I can't drive right now, I'm not dumb. I don't want to hurt myself or anyone else. Requested that she has a conversation with her doctors regarding return to driving. Recommend she have an OT driving assessment before going back to driving. Precautions Other Precautions: fall, vertigo, 5#lifting restriction left arm (left shoulder redo, reverse shoulder arthroplasty, 2mo ago) Fall Risk (65 and older) Fall in the last 12 months: Yes(fall after left shoulder surgery 2 months ago.) Did you have an injury with the fall?: Yes(hit her head) Are you fearful of falling?: No Fall Risk Comments: Patient is at risk for falls secondary to left knee instability during mobility. OBJECTIVE Pain: No pain reported during session. Vitals:Not indicated at this time Activities of daily living re-training: Feeding Feeding Level of Assistance: Independent Feeding Comments: Observed patient independently opening containers, cutting food, and managing multiple food items. Bathing Bathing Location: Standing in shower Bathing Comments: Per patient report, she was able to shipping technician the shower last evening and using grab bars for steadying assistance. She stated she briefly sat down twice. Continue to recommend a shower stool for home. ADL Comments ADL Comments: Facilitated education on home safety and fall prevention and provided her with a home safety folder. Re-enforced having clear pathways and removing rugs and/or cords that she could potential trip over in her home. Recommended additional night lights in her apartment. Advised her NOT to use bathroom sink or external surfaces in her bathroom for stability. Patient/Family Education: Home safety, fall prevention, and durable medical equipment recommendations. At the end of today's therapy session patient was left in bed with an appropriate call light within reach. Patient's needs and questions addressed during today's session. Contact monitoring: PPE used during therapy: Therapist was wearing the following PPE throughout entire session: surgicalmask and eye protection Patient was wearing a mask during therapy session: yes Additional Staff Present During Session: No Assessment Patient seen this afternoon by OT to focus on home safety, fall prevention, and bathroom durable medical equipment recommendations. Facilitated education on home safety and fall prevention and providedher with a home safety folder. Re- enforced having clear pathways and removing rugs and/or cords thatshe could potential trip over in her home. Recommended additional night lights in her apartment. Advised her NOT to use bathroom sink or other external surfaces for stability. Recommended a toilet safety frame and shower stool for home although she was not receptive to this. Briefly, discussed not driving at this time or until cleared by MD's. She was agreeable to this and stated she has friends/family that can provide transportation once d/DC'd from the hospital. Barriers to Discharge Home: Current functional status Barriers to Discharge Comments: Mild balance instability with mobility Comorbid Conditions: Cerebrovascular accident, Mental health disorder Personal Factors: Living situation, Needs assistive device Discharge Therapy Needs - OT: Ongoing skilled therapy recommended in a post- acute setting(vs Home toself-care with support from son (depending upon progress)) Level of Care Recommended - OT: 24 hour supervision, Assistance with mobility Recommended Adaptive Equipment - OT: Shower chair without back, Transfer tub bench, Grab bar(s) in shower(Patient reports she doesn't like shower chairs.) Functional Goals and Timeframe's: OT Goal #1: Patient will be modified independent with toileting and toilet transfer by discharge - 02/02/2021 Goal partially met. Required physical assistance to roll waist of pants down due to long length up pants. Otherwise, no physical assist or verbal cues needed. Requires use of front wheeled walker and grab bar for steadying assistance. OT Goal #2: Patient will complete dressing independently by discharge OT Goal #3: Patient will be independent with home exercise resistive theraband program for left shoulder and foam block strengthening for left hand by discharge. 02/03/2021 Goal Met. OT Goal #3 Status: Ongoing Plan Patient agrees with the plan of [...] Spent with Patient Home Management Training (min): 16 min Time Calculation Total Timed Units (min): 16 min Total Treatment Time (min): 16 min CARLO Cardoza/Yomi SELING PROGRAM LEADER Helen Greer P.T. - 02/03/2021 1:57 PM CST No PT intervention today as patient was at an MRI this morning, now stating that she has just gone for a walk and plans are for dc to home with intermittent assist from her son. Helen Greer, PT SELING PROGRAM LEADER Catalina Panchal, R.N. - 02/03/2021 1:49 PM CST Patient discussed at Stroke Multidisciplinary Rounds. Plan for the day: Case Management Following, PT/OT, Medication Management, MRI/MRA Plan for the Stay: Stroke w/u Discharge barriers: Inpatient Needs Recommended discharge disposition: [facility] w/[facility] Nan Feliz M.D. - 02/03/2021 10:36 AM CST SUBJECTIVE Still complains of feeling mildly unsteady due to vertigo OBJECTIVE PHYSICAL EXAM Patient up with assistance; walker with mild instability ASSESSMENT / PLAN #1 Recurrent Cerebral Ischemia #2 Right vertebral dissection with thrombus #3 Subtherapeutic INR #4 Exogenous estrogen use #5 Ongoing tobacco use Patient has had recurrent posterior circulation cerebral ischemia in November 2020 and possibly more recently in the setting of a vertebral thrombus and low INR. CTA has been difficult because of her piercings and such and so will proceed with MRI brain to see if the thalamic area is new infarct and tolook at the topography and extent of infarction. Will proceed with MRA head/neck to determine if there is still thrombus and if the underlying pathology is dissection or atherosclerosis. Plan to switch from warfarin to apixaban given the fluctuating INRs. OT/PT following patient. Will make disposition and follow up decisions after MRI complete Other CoMorbid Issues gastric bypass surgery (1999) with laparoscopic redo (2006), chronic esophageal spasm and dysmotility, recurrent sinus infections, bilateral occipital neuralgia, cervical spondylosis status post fusion, chronic pain syndrome, fibromyalgia, and nicotine use disorder. SELING PROGRAM LEADER Leonides Kumar M.D. - 02/03/2021 7:09 AM CST NEUROLOGY STROKE SERVICE PROGRESS NOTE SUBJECTIVE Patient seen and examined at bedside. Overnight she complained of blurry vision but did not have anyabnormalities found on examination. She continues to complain of vertigo, although it is improved compared to when she was admitted. Pending MRI/MRA today. Apixaban was started last night. I have reviewed the current medication list. OBJECTIVE Temperature: [36.3 ??C-36.8 ??C] 36.3 ??C Resp Rate: [16-20] 18 Blood Pressure: (99-133)/(78-80) 99/78 SpO2: [94 %-95 %] 94 % Pulse Rate: [70-87] 70 Physical Exam: Constitutional: well-developed, well-nourished, resting comfortably in bed Lungs: Breathing comfortably on room air. Cardiac: regular rate and rhythm Abdomen: Soft, non-tender, non-distended. Skin: No rash on exposed skin. Neurologic: Mental status: Alert and oriented to time, place and person Speech: Clear. Language: No evidence of aphasia. (Naming, reading, repetition and comprehension are intact.) Cranial nerves: PERRL, EOMI, mild horizontal nystagmus with rightward gaze, visual jhaveri intact to confrontation, facial movements full and symmetric, tongue protrudes in midline, there is equal elevation of the soft palate, shoulder shrug is appropriate in strength. Motor: normal strength in RUE, RLE, LLE, exam in LUE limited due to recent shoulder surgery. Coordination: mild ataxia with finger to nose on right, exam limited on the left due to pain from recent shoulder surgery. Heel to montes normal bilaterally Diagnostics: I have reviewed the labs and diagnostics from admission. 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 ?? Plan for Today -pending MRI with and without contrast and MRA -started apixaban 5 mg BID -PT/OT/PMR ?? # Stroke (Cerebellar Infarct) # Right Vertebral Artery Aneurysm # Right Vertebral Artery Thrombosis # Unruptured Left ICA Supraclinoid and Paraclinoid Aneurysms #subtherapeutic INR ?? Workup: - Neuroimaging ? - NCHCT: Evolving, now chronic right cerebellar infarct. ?- MRI Brain: ordered - Carotid: Partial interval recanalization of the right vertebral artery dissection. Evolving, now chronic right cerebellar infarct. Stable left ICA supraclinoid and paraclinoid aneurysms. - Baseline ECG NSR 60 - Stroke risk factor work up: - HbA1c 6.1 - TSH 0.3 - LDL 48 ?? Management: - Neuro Checks per Unit protocol => stat noncontrast head CT for change in exam? - Cardiac Monitoring for 24 hours - Monitor vitals per unit routine protocol - started apixaban 5 mg BID - Statin: Atorvastatin 40 - Passed bedside swallow, Regular Diet - Brain Rehab Team consulted, appreciate recs - SWS consulted for assistance with d/c planning, appreciate recs ?? # Generalized Anxiety Disorder # Bipolar II Disorder # PTSD # Fibromyalgia # Uncomplicated Opioid Dependence # Chronic Pain Syndrome # Fibromyalgia # Bilateral Occipital Neuralgia # Tobacco Use Disorder # Cervical Spine Disorder # Status Post Gastric Bypass # Esophageal Motility Disorder # Cervical Spine Disorder status post C2-T3 Spine Fusion - Nicotine Patch - Continue home meds, appreciate pharmacy assistance with med rec ? Diet: Regular Diet Tubes/lines: PIV VTE prophylaxis: apixaban Code status: Prior Disposition: Home Plan discussed with [facility] Neurology Stroke and Cerebrovascular Disease Incident Response Specialist, Dr. Rios. Please page the [facility] Neurology Stroke and Cerebrovascular Disease service pager at [phone] with any questions. Leonides Kumar M.D. SELING PROGRAM LEADER Makenzie Figueredo O.TCarlota - 02/02/2021 3:24 PM CST Occupational Therapy Acute Hospital Inpatient Progress Note SUBJECTIVE Patient's Name: Angie Bender Reason for Referral: OT to evaluate and treat- Brain Medical Diagnosis: 1. Stroke (HCC) History of Present Illness: # Acute onset vertigo # Right vertebral artery thrombus on warfarin# Query right vertebral artery dissection# Subtherapeutic INR # Chronic right cerebellar infarct# Left occipital encephalomalacia # History of posterior circulation embolic infarcts - 03/2019# Left ICA supracl inoid and paraclinoid aneurysms Onset Date: 01/31/21 Patient/Caregiver Goals: To return home with same level of support Patient Comments: Patient reported her son will be able to provide supervision when she goes home. Reports having dizziness if she gets up too fast. No complaints during OT interventions. Precautions Other Precautions: fall, vertigo, 5#lifting restriction left arm (left shoulder redo, reverse shoulder arthroplasty, 2mo ago) Fall Risk (65 and older) Fall in the last 12 months: Yes(fall after left shoulder surgery 2 months ago.) Did you have an injury with the fall?: Yes(hit her head) Are you fearful of falling?: No Fall Risk Comments: Patient is at risk for falls secondary to left knee instability during mobility. OBJECTIVE Pain: No pain reported during OT interventions. Vitals:Not indicated at this time Activities of daily living re-training Toileting Toileting Location: Toilet Toileting Delivery: Assessed, Therapist Assisted Toileting Adaptive Equipment: (Front wheeled walker) Toileting Level of Assistance: Minimal assistance Toileting Comments: Front wheeled walker used for steadying assistance with pant management. Physical assistance needed to roll over hospital pants at waist due to length of pants. ADL Comments ADL Comments: Patient transferred semi-supine to sitting edge of bed with modified independence as bed rail used. She then transferred from sit to stand and ambulated to the bathroom using front wheeled walker with modified independence due to safety considerations. After toileting and grooming at the sink, she continued to demonstrate modified independence with mobility and transferring to sitting edge of bed. Sit to Stand Transfers Transfer Equipment: Front wheeled walker Level of Assistance: Modified Independent Assessment/Delivery: Assessed Stand to Sit Transfers # of Assistants: 1 Transfer Surface: Bed Transfer Equipment: Front wheeled walker Level of Assistance: Modified independent Assessment/Delivery: Assessed Toilet Transfers # of Assistants: 1 Transfer Surface: Toilet Transfer Approach: Ambulating Transfer Equipment: Grab bars, Front wheeled walker Level of Assistance: Modified independent Assessment/Delivery: Assessed Toilet Transfers Comments: No physical assistance or verbal cues needed. Neuromuscular reeducation Coordination Retraining Fine Motor: Instructed in foam block exercises for her left hand for gross grasp, oppositional pinches, and a lateral pinch. Provided a blue foam block (resistance 3/3) for gross grasp and then a pink sponge (resistance 2/3) for all other exercises. Written handouts provided. Patient/Family Education: Home exercise program for left hand coordination and strengthening. Safetywith bathroom transfers and recommendation of using a shower chair when showering at home. At the end of today's therapy session patient was left in bed with the bed alarm on nursing present with an appropriate call light within reach. Patient's needs and questions addressed during today's session. Contact monitoring: PPE used during therapy: Therapist was wearing the following PPE throughout entire session: surgicalmask and eye protection Patient was wearing a mask during therapy session: no Additional Staff Present During Session: No Assessment Patient seen this afternoon to focus on neuromuscular reeducation to left UE and activities of dailyliving re-training. Instructed in a home exercise program for coordination and strengthening for herleft hand using resistive foam blocks, written handouts provided. She demonstrated modified independence with bed mobility, toileting, and toilet transfers due to safety considerations. Recommend she uses a shower chair for showers at home for safety. Recommend 24/7 supervision initially when going home to ensure her safety. From the Switch Inspector's perspective, the patient is not an inpatient rehabilitation candidate, due to being near baseline level of function and having limited OT goals. Barriers to Discharge Home: Current functional status Barriers to Discharge Comments: Mild balance instability with mobility Comorbid Conditions: Cerebrovascular accident, Mental health disorder Personal Factors: Living situation, Needs assistive device Discharge Therapy Needs - OT: Ongoing skilled therapy recommended in a post- acute setting(vs Home toself-care with support from son (depending upon progress)) Level of Care Recommended - OT: 24 hour supervision, Assistance with mobility Recommended Adaptive Equipment - OT: Shower chair without back, Transfer tub bench, Grab bar(s) in shower(Patient reports she doesn't like shower chairs.) Functional Goals and Timeframe's: OT Goal #1: Patient will be modified independent with toileting and toilet transfer by discharge - 02/02/2021 Goal partially met. Required physical assistance to roll waist of pants down due to long length up pants. Otherwise, no physical assist or verbal cues needed. Requires use of front wheeled walker for steadying assistance. OT Goal #2: Patient will complete dressing independently by discharge - 02/02/2021 Ongoing OT Goal #3: Patient will be independent with home exercise resistive theraband program for left shoulder and foam block strengthening for left hand by discharge. 02/02/2021 Partially met. OT Goal #3 Status: Ongoing Plan Patient agrees with the plan of care and goals. Treatment Plan: OT Frequency: 5 times per week OT Amount: 1 visit per day OT Inpatient Duration : Until goals are met or hospital discharge Plan: Plan of care initiated OT Plan Comments: Bathroom saftey, review of left hand coordination/strengthening exercises Treatment interventions may include: Treatment Interventions: Therapeutic exercise, Therapeutic functional activity, Neuromuscular re-education, Self-care/home management Time Spent with Patient Home Management Training (min): 17 min Neuromuscular Re-Education (min): 15 min Time Calculation Total Timed Units (min): 32 min Total Treatment Time (min): 32 min MILA Cardoza SELING PROGRAM LEADER Catalina Panchal R.N. - 02/02/2021 2:31 PM CST Patient discussed at Stroke Multidisciplinary Rounds. Plan for the day: MRI, Case Management Consult, PT/OT, Medication Management Plan for the Stay: Stroke w/u Discharge barriers: Inpatient Needs Recommended discharge disposition: [facility] [place] w/HHC SELING PROGRAM LEADER Leonides Liang P.T. - 02/02/2021 12:58 PM CST Physical Therapy Acute Hospital Inpatient Treatment SUBJECTIVE Patient's Name: Angie Bender Reason for Referral: PT evaluate and treat- brain consult. Medical Diagnosis: 1. 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 Vitals: Not indicated at this time Bed Mobility - Supine to Sit # of Assistants: 1 Level of Assistance: Supervision/Set-up, Modified Independent Bed Mobility - Sit to Supine # of Assistants: 1 Level of Assistance: Modified Independent, Supervision/Set-up Sit to Stand Transfers # of Assistants: 1 Transfer Surface: Bed, Chair Transfer Equipment: Front wheeled walker Level of Assistance: Supervision/set-up Assessment/Delivery: Instructed Comments: min to no cuing for safety, balance is good with front wheeled walker, slowing down and with shoes on, patient does much better Bed, Chair, Wheelchair Transfers # of Assistants: 1 Transfer Surface: Bed, Chair Transfer Approach: To and from, Ambulating Transfer Equipment: Front wheeled walker Level of Assistance: Supervision/ Set-up Assessment/Delivery: Instructed Gait Assessment/Training Distance (m): 152 m Surface: Even, Smooth/hard Device: Gait belt, Front-wheeled walker # of Assistants: 1 Level of Assistance: Supervision/Set-up Stability: good stability with front wheeled walker Assessment of Gait: cuing to go slow, using front wheeled walker, staying inside the back legs, goodcontrol of right LE with foot placement Cueing Provided: Verbal Training/Intervention: worked with front wheeled walker only during our session Balance Retraining Static Standing Balance: Eyes open, Tandem stance, Static standing, Narrow base of support Seated Exercise - Side Addressed: Left, Bilateral Seated Exercise: Marching, Long arc quads, Knee flexion, Ankle pumps Exercise Mode: Active motion against gravity Seated Exercise 1: left UE exercises - active range of motion in painfree range anti gravity, below shoulder level, wrist and elbow Patient/Family Training: use of front wheeled walker , safety with front wheeled walker At the end of today's therapy session patient was left in bed with the bed alarm on with an appropriate call light within reach. Patient's needs and questions addressed during today's session. Contact monitoring: PPE used during therapy: Therapist was wearing the following PPE throughout entire session: surgicalmask and eye protection Patient was wearing a mask during therapy session: yes Assessment Patient mobilizing well with front wheeled walker today, improved balance and right foot control andplacement. Doing really well on level floor with the walker. Patient has a four-wheeled walker at home. Recommending home with some family supervision initially, 24 to 48 hours then intermittent supervision. Recommending use of front or four-wheeled walker for gait aid and continued outpatient physical therapy. Barriers to a safe discharge home: none, patient is functionally safe to discharge home when medically stable with family supervision. Barriers to Discharge Home: Limited caregiver availability Barriers to Discharge Comments: Mild balance instability with mobility, improving wth use of front wheeled walker and slowing down Comorbid Conditions: Cerebrovascular accident, Mental health disorder Personal Factors: Living situation, Needs assistive device Discharge Therapy Needs - PT: Ongoing skilled outpatient therapy recommended Level of Care Recommended - PT: Intermittent supervision, 24 hour supervision(initial 24 hour supervision initially) Equipment Recommended - PT: 4-wheeled walker, Front-wheeled walker Functional Goals and Timeframes: PT Goal #1: Patient will be indepdent with transfers using least restrictive device to facilitate a safe dc. PT Goal #1 Date: 02/09/21 PT Goal #1 Status: Progressing PT Goal #2: Patient will ambulate with least restrictive device 75 meters independently to faciliatea safe dc home. PT Goal #2 Date: 02/09/21 PT Goal #2 Status: Progressing PT Goal #3: Patient will negotiate 4-6 steps with a railing and stand by assistance. PT Goal #3 Date: 02/09/21 PT Goal #3 Status: Ongoing Progress: Progressing toward goals Plan Patient agrees with the plan of care and goals. Treatment Plan: PT Frequency: 5 times per week PT Amount: 1 visit per day PT Inpatient Duration : Until goals are met or hospital discharge Plan: Continue with current plan Treatment interventions may include: Treatment/Interventions: Therapeutic exercise, Therapeutic functional activity, Neuromuscular re-education, Gait training Time Spent with Patient Neuromuscular Re-Education (min): 5 min Therapeutic Activity (min): 15 min Therapeutic Exercise (min): 12 min Total Timed Units (min): 32 min Total Treatment Time (min): 32 min Leonides Liang P.T. SELING PROGRAM LEADER Nan Rios M.D. - 02/02/2021 10:27 AM CST SUBJECTIVE Still complains of feeling mildly unsteady due to vertigo OBJECTIVE PHYSICAL EXAM Patient up with assistance; walker with mild instability ASSESSMENT / PLAN #1 Recurrent Cerebral Ischemia #2 Right vertebral dissection with thrombus #3 Subtherapeutic INR #4 Exogenous estrogen use #5 Ongoing tobacco use Patient has had recurrent posterior circulation cerebral ischemia in November 2020 and possibly more recently in the setting of a vertebral thrombus and low INR. CTA has been difficult because of her piercings and such and so will proceed with MRI brain to see if the thalamic area is new infarct and tolook at the topography and extent of infarction. Will proceed with MRA head/neck to determine if there is still thrombus and if the underlying pathology is dissection or atherosclerosis. Due to patient's known prior spinal cord stimulator, there have been issues with arranging the MRI. If we cannot get it, we will simply resume anticoagulation. We are assessing whether she has payment for apixaban rather than warfarin given her difficulty achieving a reasonable INR. PMR to see as well. Other CoMorbid Issues gastric bypass surgery (1999) with laparoscopic redo (2006), chronic esophageal spasm and dysmotility, recurrent sinus infections, bilateral occipital neuralgia, cervical spondylosis status post fusion, chronic pain syndrome, fibromyalgia, and nicotine use disorder. SELING PROGRAM LEADER Jessie Rock, DBritton, R.Ph. - 02/02/2021 10:21 AM CST Images from the original note were not included. Admission Medication History Note Adherence issues: Unable to assess Medication list source: Pharmacy or dispense records. Medication list provided by [facility] in [place]. Most recent dispensing information obtained. Multiple changes made to the list. Medication list reconciled against information in Care Everywhere. Prior to Admission Medications Med List Status: Pharmacy/RN Complete Set By: Jessie Rock, D., R.Ph. at 02/02/2021 10:20 AM Taking? Informant Start Date End Date LT albuterol (PROVENTIL HFA,VENTOLIN HFA) 90 mcg/actuation inhaler Self -- -- Inhale 2 puffs every 6 (six) hours as needed for wheezing or shortness of breath. ARTHRITIS PAIN RELIEF, ACETAM, 650 mg ER tablet Self 02/01/19 -- TAKE TWO TABLETS (1300MG) BY MOUTH EVERY EIGHT HOURS aspirin [address] tablet 10/31/19 -- 81 mg daily. Last taken 11/28/18 atorvastatin (LIPITOR) 40 mg tablet 03/31/19 03/30/20 Take 1 tablet (40 mg total) by mouth at bedtime. benzonatate (TESSALON PERLES) 100 mg capsule 03/19/19 -- Take 100 mg by mouth 3 (three) times a day as needed for cough. cetirizine (ZyrTEC) 10 mg tablet Self -- -- Take 10 mg by mouth 2 (two) times a day. cholecalciferol (VITAMIN D3) tablet Self -- -- Take 125 mcg by mouth daily. cyanocobalamin, vitamin B-12, 2,500 mcg tablet, sublingual 02/08/19 -- every morning. diazePAM (VALIUM) 10 mg tablet Self 02/14/19 -- Take 10 mg by mouth 2 (two) times a day. diphenhydrAMINE (BENADRYL) 25 mg tablet -- -- Take 25-50 mg by mouth every 6 (six) hours as needed for itching. esomeprazole (NexIUM) [address] capsule Self 11/19/17 -- Take 40 mg by mouth 2 (two) times a day before breakfast and dinner. Flovent HFA 110 mcg/actuation inhaler 01/19/21 -- Inhale 2 puffs 2 (two) times a day. FLUoxetine (PROzac) 40 mg capsule Self -- -- Take 80 mg by mouth every morning. furosemide (LASIX) 40 mg tablet Self 02/08/19 -- Take 40 mg by mouth 2 (two) times a day. ipratropium-albuteroL (DUONEB) 0.5-2.5 mg/3 mL nebulizer solution 01/16/21 -- Inhale 3 mL by nebulization 4 (four) times a day. lamoTRIgine (LaMICtal) 200 mg tablet 02/08/19 -- Take 200 mg by mouth 2 (two) times a day. MAG-G 27 mg magnesium (500 mg) tablet 02/16/19 -- Take 1 tablet by mouth at bedtime. meclizine (ANTIVERT) 25 mg tablet 01/19/21 -- Take 25 mg by mouth every 6 (six) hours as needed for dizziness. ondansetron ODT (Zofran ODT) 8 mg disintegrating tablet Self 01/16/10 -- Take 1 tablet by mouth 3 (three) times a day as needed for nausea. oxyCODONE (ROXICODONE) 10 mg IR tablet 08/23/20 -- Take 10 mg by mouth every 4 (four) hours as needed for pain. Max 4 tablets/day polyethylene glycol (MIRALAX) 17 gram/dose oral powder Self 04/11/17 -- Take 17 g by mouth daily. pregabalin (LYRICA) 300 mg capsule 09/18/20 -- Take 300-600 mg by mouth as directed. 1 capsule in the morning and 2 capsules in the evening QUEtiapine (SEROquel) 50 mg tablet 08/19/20 -- Take 50 mg by mouth at bedtime. Refresh Tears 0.5 % ophthalmic solution 12/03/19 -- tiZANidine (ZANAFLEX) 2 mg tablet 03/27/19 -- Take 2-4 mg by mouth every 8 (eight) hours as needed for muscle spasms. Muscle spasms valACYclovir (VALTREX) 500 mg tablet Self 02/22/18 -- Take 500 mg by mouth daily. Take 2 pills at onset of cold sore symptoms as needed warfarin (COUMADIN) 5 mg tablet 01/01/21 -- Take as directed: starting dose 5 mg nightly. zonisamide (ZONEGRAN) 100 mg capsule 02/22/19 -- Take 300 mg by mouth 2 (two) times a day. SELING PROGRAM LEADER Leonides Kumar M.D. - 02/02/2021 6:55 AM CST NEUROLOGY STROKE SERVICE PROGRESS NOTE SUBJECTIVE Patient seen and examined at bedside. No events over night. Patient still complains of vertigo that is worse with movement, but does say that it has improved from yesterday. She also complains of spasmodic pain in her right neck. I have reviewed the current medication list. OBJECTIVE Temperature: [36.5 ??C-36.7 ??C] 36.5 ??C Heart Rate: [67-97] 70 Resp Rate: [16] 16 Blood Pressure: (112-125)/(66-94) 125/94 SpO2: [95 %-98 %] 96 % Pulse Rate: [64-85] 76 Physical Exam: Constitutional: well-developed, well-nourished, resting comfortably in bed Lungs: Breathing comfortably on room air. Cardiac: regular rate and rhythm Abdomen: Soft, non-tender, non-distended. Skin: No rash on exposed skin. Neurologic: Mental status: Alert and oriented to time, place and person Speech: Clear. Language: No evidence of aphasia. (Naming, reading, repetition and comprehension are intact.) Cranial nerves: PERRL, EOMI, mild horizontal nystagmus with rightward gaze, visual jhaveri intact to confrontation, facial movements full and symmetric, tongue protrudes in midline, there is equal elevation of the soft palate, shoulder shrug is appropriate in strength. Motor: normal strength in RUE, RLE, LLE, exam in LUE limited due to recent shoulder surgery. Coordination: mild ataxia with finger to nose on right, exam limited on the left due to pain from recent shoulder surgery. Heel to montes normal bilaterally NIH Stroke Scale 1A. LOC: 0=alert; keenly [...] for full 5 seconds 7. Limb Ataxia: 1=Present in one limb 8. Sensory: 0=Normal; no sensory loss 9. Best Language:0=No aphasia, normal 10. Dysarthria: 0=Normal 11. Extinction: 0=No abnormality TOTAL SCORE: 1 Diagnostics: I have reviewed the labs and diagnostics from admission. 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 ?? Plan for Today -obtain MRI with and without IV contrast and MRA Neck, per radiology she needs her remote for her spinal stimulator, which she does not have here -started Asprin 325 mg for now -consider starting therapy with a DOAC -PT/OT/PMR ?? # Stroke (Cerebellar Infarct) # Right Vertebral Artery Aneurysm # Right Vertebral Artery Thrombosis # Unruptured Left ICA Supraclinoid and Paraclinoid Aneurysms #subtherapeutic INR ?? Workup: - Neuroimaging ? - NCHCT: Evolving, now chronic right cerebellar infarct. ?- MRI Brain: ordered - Carotid: Partial interval recanalization of the right vertebral artery dissection. Evolving, now chronic right cerebellar infarct. Stable left ICA supraclinoid and paraclinoid aneurysms. - Baseline ECG NSR 60 - Stroke risk factor work up: - HbA1c 6.1 - TSH 0.3 - LDL 48 ?? Management: - Neuro Checks per Unit protocol => stat noncontrast head CT for change in exam? - Cardiac Monitoring for 24 hours - Monitor vitals per unit routine protocol - Blood Pressure:?-Permit hypertension up to 220/110 for first 24 hours ?- Antihypertensives: hold home antihypertensives; resume half dose beta blockade with holding parameters - Blood Glucose ?- BG Goal: 140-180 ? - Hold oral DM meds and start moderate correction scale insulin if indicated based upon initial results - Antithrombotics: aspirin 325 mg -INR was 1.4 on admission, consider starting DOAC in favor of warfarin - Statin: Atorvastatin 40 - Passed bedside swallow, Regular Diet - Brain Rehab Team consulted, appreciate recs - SWS consulted for assistance with d/c planning, appreciate recs ?? # Generalized Anxiety Disorder # Bipolar II Disorder # PTSD # Fibromyalgia # Uncomplicated Opioid Dependence # Chronic Pain Syndrome # Fibromyalgia # Bilateral Occipital Neuralgia # Tobacco Use Disorder # Cervical Spine Disorder # Status Post Gastric Bypass # Esophageal Motility Disorder # Cervical Spine Disorder status post C2-T3 Spine Fusion - Nicotine Patch - Nicotine Dependence Consult - Continue home meds, appreciate pharmacy assistance with med rec ? Diet: Regular Diet Tubes/lines: PIV VTE prophylaxis: heparin Code status: Prior Disposition: Home Plan discussed with [facility] Neurology Stroke and Cerebrovascular Disease Incident Response Specialist, Dr. Rios. Please page the [facility] Neurology Stroke and Cerebrovascular Disease service pager at [phone] with any questions. Leonides Kmuar M.D. SELING PROGRAM LEADER Leonides Kumar M.D. - 02/01/2021 6:36 AM CST NEUROLOGY STROKE SERVICE PROGRESS NOTE SUBJECTIVE Patient seen and examined at bedside. She says that her vertigo is improved from yesterday but is still present. She is also complaining of pain on the right side of her neck. I have reviewed the current medication list. OBJECTIVE Temperature: [36.5 ??C-36.6 ??C] 36.6 ??C Heart Rate: [63-69] 63 Resp Rate: [16] 16 Blood Pressure: (117-133)/(59-77) 117/62 SpO2: [94 %-97 %] 94 % Pulse Rate: [62-74] 62 Physical Exam: Constitutional: well-developed, well-nourished, resting comfortably in bed Lungs: Breathing comfortably on room air. Cardiac: regular rate and rhythm Abdomen: Soft, non-tender, non-distended. Skin: No rash on exposed skin. Neurologic: Mental status: Alert and oriented to time, place and person Speech: Clear. Language: No evidence of aphasia. (Naming, reading, repetition and comprehension are intact.) Cranial nerves: PERRL, EOMI, mild horizontal nystagmus with rightward gaze, visual jhaveri intact to confrontation, facial movements full and symmetric, tongue protrudes in midline, there is equal elevation of the soft palate, shoulder shrug is appropriate in strength. Motor: normal strength in RUE, RLE, LLE, exam in LUE limited due to recent shoulder surgery. Coordination: mild ataxia with finger to nose on right, exam limited on the left due to pain from recent shoulder surgery. Heel to montes normal bilaterally NIH Stroke Scale 1A. LOC: 0=alert; keenly [...] for full 5 seconds 7. Limb Ataxia: 1=Present in one limb 8. Sensory: 0=Normal; no sensory loss 9. Best Language:0=No aphasia, normal 10. Dysarthria: 0=Normal 11. Extinction: 0=No abnormality TOTAL SCORE: 1 Diagnostics: I have reviewed the labs and diagnostics from admission. 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 ?? Plan for Today -obtain MRI with and without IV contrast and MRA Neck, pending for Friday 02/02 given that she has a spinal stimulator -start Asprin 325 mg for now -consider starting therapy with a DOAC -PT/OT/PMR ?? # Stroke (Cerebellar Infarct) # Right Vertebral Artery Aneurysm # Right Vertebral Artery Thrombosis # Unruptured Left ICA Supraclinoid and Paraclinoid Aneurysms #subtherapeutic INR ?? Workup: - Neuroimaging ? - NCHCT: Evolving, now chronic right cerebellar infarct. ?- MRI Brain: ordered - Carotid: Partial interval recanalization of the right vertebral artery dissection. Evolving, now chronic right cerebellar infarct. Stable left ICA supraclinoid and paraclinoid aneurysms. - Baseline ECG NSR 60 - Stroke risk factor work up: - HbA1c 6.1 - TSH 0.3 - LDL 48 ?? Management: - Neuro Checks per Unit protocol => stat noncontrast head CT for change in exam? - Cardiac Monitoring for 24 hours - Monitor vitals per unit routine protocol - Blood Pressure:?-Permit hypertension up to 220/110 for first 24 hours ?- Antihypertensives: hold home antihypertensives; resume half dose beta blockade with holding parameters - Blood Glucose ?- BG Goal: 140-180 ? - Hold oral DM meds and start moderate correction scale insulin if indicated based upon initial results - Antithrombotics: aspirin 325 mg -INR was 1.4 on admission, consider starting DOAC in favor of warfarin - Statin: Atorvastatin 40 - Passed bedside swallow, Regular Diet - Brain Rehab Team consulted, appreciate recs - SWS consulted for assistance with d/c planning, appreciate recs ?? # Generalized Anxiety Disorder # Bipolar II Disorder # PTSD # Fibromyalgia # Uncomplicated Opioid Dependence # Chronic Pain Syndrome # Fibromyalgia # Bilateral Occipital Neuralgia # Tobacco Use Disorder # Cervical Spine Disorder # Status Post Gastric Bypass # Esophageal Motility Disorder # Cervical Spine Disorder status post C2-T3 Spine Fusion - Nicotine Patch - Nicotine Dependence Consult - Continue home meds, appreciate pharmacy assistance with med rec ? Diet: Regular Diet Tubes/lines: PIV VTE prophylaxis: heparin Code status: Prior Disposition: Home Plan discussed with [facility] Neurology Stroke and Cerebrovascular Disease Incident Response Specialist, Dr. Rios. Please page the [facility] Neurology Stroke and Cerebrovascular Disease service pager at [phone] with any questions. Leonides Kumar M.D. SELING PROGRAM LEADER documented in this encounter H&P Notes Nan Rios M.D. - 02/01/2021 8:03 AM CST Images from the original note were not included. SUBJECTIVE CHIEF COMPLAINT / REASON FOR VISIT Stroke HISTORY OF PRESENT ILLNESS Patient is a 55 year old female with a prior history of cerebellar and occipital stroke in 2019, nowwith recurrent stroke and possible recurrent thrombus/dissection heralded by nausea, vertigo and headache. March 2019: The patient was admitted to the stroke service with acute onset vertigo.??MRI/MRA head at the time showed multiple foci of restricted diffusion in bilateral cerebellum and occipital lobes consistent with posterior circulation acute infarcts. There was also a 5x5 mm saccular aneurysm projecting laterally from the ??L paraclinoid ICA.??Subsequent??CT head/CTA head and neck showed a 4x9 mm mobile partially occlusive thrombus in the distal R vertebral artery. The patient was started on warfarin with goal INR 2-3. ?? She remained on anticoagulation for 6 months prior to transitioning to aspirin 325mg monotherapy. ByAugust 2019, Similar appearance of the distal right vertebral artery irregularity and mild narrowing at C1, related to the nonocclusive luminal thrombus, as seen on the prior CTA exams. The August 2019 MRI demonstrates a new occipital lesion not seen on the original March 2019 MRI. She had an episode of vertigo on Dec 20, 2020. Head CT at the time showed a subacute right cerebellar infarct (not present on CT sinuses in july 2020) and left medial occipital encephalomalacia. In Dec 2020, she had a repeat CT angiogram which showed mildly expansile thrombus in the right vertebral artery V3 segment which had slightly increased since MRA of 09/03/2020 and was near occlusive, with only a thin string of residual contrast opacification. She was resumed on warfarin and placed on a full dose aspirin until her INR was therapeutic. A routine repeat CT angiogram head/neck on 01/30/2021 showed partial interval recanalization of the right vertebral artery dissection and slightly decreased high-grade stenosis at the V3/4 junction with increased flow in the distal V4 segment. ?? The patient presented to the [place] ED with acute onset vertigo which occurred yesterday afternoon while she was [facility] She bent forward and complained of neck pain which radiated to the top of her head. She also complained of warmth all over her body and generalised weakness. ?? With effort, she was able to ambulate back to her car with her groceries, where she met her son, whothen took her to the [place] ED. There, the patient had a head CT the chronic left cerebellar infarct. There was also concern for a new infarct in the right thalamus. INR was 1.35. She was transferred to [facility] for further evaluation. ?? Today, she feels better, but with activity becomes increasingly vertiginous. No vomiting. Eating this morning some crackers. ?? Vascular Risk Factors Diabetes: no Hypertension: yes Obstructive Sleep Apnea: unable to determine Hyperlipidemia:no, not on statin Results for ANGIE BENDER ( ) as of 02/01/2021 08:26 02/01/2021 05:21 Cholesterol, Total, S 157 Cholesterol, HDL, S 88 Calculated LDL 48 Triglycerides 107 Non HDL Cholesterol 69 Tobacco use: yes Atrial Fibrillation: no Vascular disease:no Social History: Tobacco: reports that she has been smoking. She has a 15.00 pack-year smoking history. She has never used smokeless tobacco. Alcohol: reports no history of alcohol use. Drugs: reports current drug use. Drug: Marijuana. OBJECTIVE PHYSICAL EXAM Language: Normal, no evidence of aphasia Speech: Normal Visual jhaveri: Normal Eye movements: Normal, mild rightward nystagmus Cranial nerves R Muscle strength L R L 0 Frontalis 0 Visual acuity 0 Orbicularis oculi 0 Pupils 0 Lower facial muscles 0 0 Light reflex 0 0 Temporal-[place] 0 0 Consensual 0 0 Palate-Pharynx 0 0 Accommodation 0 0 Sternocleidomastoid 0 0 Trapezius 0 0 Ptosis 0 0 Tongue 0 Hearing R Muscle, strength L R Muscle, strength L Neck Trunk Neck flexors Abdominal muscles Neck extensors Paraspinals Upper Limbs Lower Limbs Supraspinatus 0 Hip flexion 0 Infraspinatus Hip extension Pectoralis 0 Abduction, thigh 0 0 Deltoid 0 0 Adduction, thigh 0 0 Biceps brachii 0 0 Quadriceps 0 Brachioradialis 0 Hamstrings 0 Supinator/pronator 0 Tibialis anterior 0 0 Triceps 0 0 Peronei 0 Wrist extensor 0 EHL 0 Wrist flexors 0 Toe extensors 0 0 Digit extensors 0 0 Tibialis post. 0 0 Digit flexors 0 0 Toe flexors 0 0 Thenar 0 0 Calf muscles 0 0 Hypothenar 0 0 Interossei 0 Anal sphincter Muscle tone: Normal Coordination: R AMR's L 0 Tongue 0 0 Fingers 0 0 Hands 0 0 Feet 0 Coordination -1 Finger-nose (eyes closed) 0 Heel-montes Gait and Station: Not tested ASSESSMENT / PLAN #1 Recurrent Cerebral Ischemia #2 Right vertebral dissection with thrombus #3 Subtherapeutic INR #4 Exogenous estrogen use #5 Ongoing tobacco use Patient has had recurrent posterior circulation cerebral ischemia in November 2020 and possibly more recently in the setting of a vertebral thrombus and low INR. CTA has been difficult because of her piercings and such and so will proceed with MRI brain to see if the thalamic area is new infarct and tolook at the topography and extent of infarction. Will proceed with MRA head/neck to determine if there is still thrombus and if the underlying pathology is dissection or atherosclerosis. Once MRI is back, will determine best course of antithrombotics and discuss co morbid contributing conditions. PMR to see as well. Other CoMorbid Issues gastric bypass surgery (1999) with laparoscopic redo (2006), chronic esophageal spasm and dysmotility, recurrent sinus infections, bilateral occipital neuralgia, cervical spondylosis status post fusion, chronic pain syndrome, fibromyalgia, and nicotine use disorder. SELING PROGRAM LEADER Marbella Cutler M.D. - 02/01/2021 2:55 AM CST I saw the patient with Dr. England. I was present for or re-performed dodson portions of the history or physical exam. I agree with the assessment and plan except as outlined in my supervisory note. Reason for transfer Vertigo History of Present Illness Ms. Bender is a 55 y.o. right handed lady. Medical comorbidities: gastric bypass surgery (1999) with laparoscopic redo (2006), chronic esophageal spasm and dysmotility, recurrent sinus infections, bilateral occipital neuralgia, cervical spondylosis status post fusion, chronic pain syndrome, fibromyalgia, and nicotine use disorder. Regarding her cerebrovascular history, the patient was admitted to the stroke service in March 2019 with acute onset vertigo. MRI/MRA head at the time showed multiple foci of restricted diffusion in bilateral cerebellum and occipital lobes consistent with posterior circulation acute infarcts, likely embolic. There was also a 5x5 mm saccular aneurysm projecting laterally from the ??L paraclinoid ICA. Subsequent CT head/CTA head and neck showed a 4x9 mm mobile partially occlusive thrombus in the distal R vertebral artery. The patient was started on warfarin and remained on anticoagulation for 6 months prior to transitioning to aspirin 325mg monotherapy given stability on vessel imaging and no further clinical events. She had an episode of vertigo on Dec 20, 2020. Head CT at the time showed a subacute right cerebellar infarct (not present on CT sinuses in july 2020) and left medial occipital encephalomalacia. In Dec 2020, she had a repeat CT angiogram which showed mildly expansile thrombus in the right vertebral artery V3 segment which had slightly increased since MRA of 09/03/2020 and was near occlusive, with only a thin string of residual contrast opacification. She was resumed on warfarin and placed on a full dose aspirin until her INR was therapeutic. A routine repeat CT angiogram head/neck on 01/30/2021 showed partial interval recanalization of the right vertebral artery dissection and slightly decreased high-grade stenosis at the V3/4 junction with increased flow in the distal V4 segment. The patient presented to the [place] ED with acute onset vertigo which occurred yesterday afternoon while she was at hospital for [facility]. She bent forward and complained of neck pain which radiated to the top of her head. She also complained of warmth all over her body and generalised weakness. With effort, she was able to ambulate back to her car with her groceries, where she met her son, whothen took her to the [place] ED. There, the patient had a head CT the chronic left cerebellar infarct. INR was 1.35. She was transferred to [facility] for further evaluation. On the floor, she was hemodynamically stable but complained of ongoing vertigo, with difficulty keeping her eyes open. Social history: she is currently unemployed but previously worked at a [email or web address] and [employer]. She is fully independent of her ADLs and lives alone. She smoked 1/2 PPD since her teenage yrs. Shedenies alcohol use. PHYSICAL EXAM BP 123/77 Pulse 73 Temp 36.5 ??C (Oral) Resp 16 Ht 152.4 cm Wt 78.8 kg SpO2 96% BMI 33.93 kg/m?? NIHSS ASSESSMENT Baseline 1A. LOC: 0=alert; keenly responsive 1B. Questions: 0=answers both questions correctly 1C. Commands: 0=Performs both tasks correctly 2. Best Gaze: 0=normal 3. Visual: normal 4. Facial Palsy: 0=Normal symmetric movement 5A. Left Arm Motor: 0=No drift, limb holds 90 (or 45) degrees for full 10 seconds 5B. Right Arm Motor: 0=No drift, limb holds 90 (or 45) degrees for full 10 seconds 6A. Left Leg Motor: 0=No drift, limb holds 90 (or 45) degrees for full 10 seconds 6B. Right Leg Motor: 0=No drift, limb holds 90 (or 45) degrees for full 10 seconds 7. Limb Ataxia: 0=Absent 8. Sensory: 0=Normal; no sensory loss 9. Best Language:0=No aphasia, normal 10. Dysarthria: 0=Normal 11. 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 Bender is a 55 y.o. lady directly admitted to the stroke service due to acute onset vertigo. She was previously on warfarin for a right vertebral artery thrombus for a period of 6 months and subsequently transitioned to antiplatelet therapy, given stability on vessel imaging and no further clinical events. However, she was resumed on anticoagulation last month given that she suffered a new right cerebellar infarct and recurrent right vertebral artery thrombus. Her clinical presentation at thistime is similar in the setting of a subtherapeutic INR. Would obtain an MRI brain to evaluate for recurrent cerebellar infarct and to determine the topography prior to having her therapeutically anticoagulated. This will help determine timing of anticoagulation in order to avoid hemorrhagic transformation. Could consider aspirin 325mg until INR is therapeutic, per outpatient regimen. RECOMMENDATIONS: - admit to stroke service - Neuro checks per floor routine - Permissive hypertension x 24hrs - Blood glucose goal 140-180 mg/dl; insulin correction scale PRN - MRI brain without contrast - If acute worsening of symptoms, then obtain stat head CT - Continue home meds: atorvastatin 40mg, fluoxetine 80mg, lamotrigine 200mg BID, lyrica 300mg BID, zonisamide 300mg BID - Hold home meds : lasix 40mg BID (to allow permissive HTN, consider resuming tomorrow) - Nicotine replacement - PRN duonebs - PRN meclizine - Nicotine dependence consult - PMR Brain Rehabilitation consult - Bedside dysphagia evaluation - jami Harris - DVT prophylaxis with heparin SC - Code status per admitting resident. Please page the Stroke service [phone] with questions/concerns. SELING PROGRAM LEADER Gerald England M.D. - 01/31/2021 9:16 PM CST Cerebrovascular Neurology Admission Note SUBJECTIVE CHIEF COMPLAINT Headache, nausea, vertigo HISTORY OF PRESENT ILLNESS: Ms.??Angie Bender??is a 55 y.o.??female??with PMH including gastric bypass surgery (1999) with laparoscopic redo (2006), chronic esophageal spasm and dysmotility, recurrent sinus infections, bilateral occipital neuralgia, cervical spondylosis s/p fusion, chronic pain syndrome, fibromyalgia, nicotine use disorder, joyce-menopausal on exogenous estrogen, left paraclinoid ICA aneurysm, chronic R cerebellar infarct, R vertebral artery dissection with associated thrombus (> 90% stenosis) on warfarin who presented to OSH c/o worsening headache and acute vertigo. These episodes of acute onset headache and vertigo appear to have initially began in March 2019 at which time she was found to have an occlusive thrombus in the distal R vertebral artery with bilateral cerebellar/occipital infarcts on MRI. She was subsequently anticoagulated with warfarin for a durationof 6 months at which time she was transitioned to ASA 325 on 10/02/19. Follow-up imaging in August 2020 demonstrated resolution of her thrombus with plain to continue aspirin. Unfortunately, she again began experiencing severe vertigo on December 22 2020 prompting a local EDvisit at which time she was discharged on meclizine with minimal improvement in her symptoms. She subsequently underwent CT imaging on December 31, 2020 which demonstrated an evolving right cerebellarinfarct as well as a mildly expansile near occlusive thrombus in the right vertebral artery. The plan at that time was to initiate warfarin with a slow drift towards therapeutic INR while bridging on full dose aspirin to avoid risk of hemorrhagic transformation. She has subsequently had labile INRs requiring re-dosing of her warfarin as well as recurrent episodes of headache and vertigo. She presented again to OSH on January 25 for similar symptoms with plan to undergo MRI/MRA. For ease of time she underwent CT head and neck angiogram on January 30 2021 which demonstrated partial interval recanalization of her right vertebral artery dissection, slightly decreased high grade vertebral artery stenosis, and an evolving chronic right cerebellar infarct. Today, the patient notes she was shopping earlier this afternoon when she developed sudden onset pain in the R posterior neck with radiation to the crown of her head when bending down. Upon standing straight she developed vertigo described as a sensation of room spinning with associated diaphoresis, nausea, and generalized warmth. She notes making it to her car with great effort due to difficulty walking following which her son took her an outside Emergency Department. Per [facility] triage note, the patient was hemodynamically stable and afebrile on presentation. INR at that time was 1.35. NCHCT demonstrated a cerebellar infarct and a right vertebral artery dissection. Shewas subsequently admitted directly to [facility] Neurology Stroke service for further workup and management. On arrival to the floor, the patient remains hemodynamically stable and afebrile. She endorses continued headache and vertigo. The patient notes she received pain and anti-nausea medication en route with minimal improvement in her symptoms. Review of Systems: ROS as stated in the HPI, all other systems were reviewed and are negative Medications, allergies, past medical, surgical, social, and family history were reviewed in the chart and updated as appropriate. PAST MEDICAL/SURGICAL HISTORY Past Medical History: Diagnosis Date ??? Anemia hx iron infusions ??? Anxiety Generalized Disorder ??? Arthritis ??? Asthma NOS ??? Cardiac Disease ??? Chronic Pain Syndrome ??? Complication Anesthesia Initial ??? Fibromyalgia ??? Gastroesophageal Reflux Disease NOS ??? Migraine Headache ??? Pain Back ??? Post Operative Nausea/Vomiting ??? Stroke (HCC) 03/2019 ??? Transient Ischemic Attack Past Surgical History: Procedure Laterality Date ??? [...] ENDOSCOPY FRONTAL.; Surgeon: Darlin Olmedo M.D.; Location: [facility] ROMB OR ??? 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 Marital status: Spouse name: Not on file ??? Number of children: Not on file ??? Years of education: Not on file ??? Highest education level: GED or equivalent Occupational History ??? Not on file Social Needs ??? Financial resource strain: Somewhat hard ??? Food insecurity Worry: Sometimes true Inability: Sometimes true ??? Transportation needs Medical: No Non-medical: No Tobacco Use ??? Smoking status: Current Every Day Smoker Packs/day: 0.50 Years: 30.00 Pack years: 15.00 ??? Smokeless tobacco: Never Used ??? Tobacco comment: Since teens, used to be 2 ppd, now 1/2 ppd. Roughly 40 pack year estimate Substance and Sexual Activity ??? Alcohol use: No Frequency: Never Drinks per session: Patient refused Binge frequency: Never ??? Drug use: Yes Types: Marijuana Comment: Medical marijuana ??? Sexual activity: Not Currently Comment: Last partner approximately 4 years ago, denies STD history Lifestyle ??? Physical activity Days per week: 1 day Minutes per session: 10 min ??? Stress: Very much Relationships ??? Social connections Talks on phone: Three times a week Gets together: More than three times a week Attends zoroastrianism service: Patient refused Active member of club or organization: No Attends meetings of clubs or organizations: Never Relationship status: ??? Intimate partner violence Fear of current or ex partner: Not on file Emotionally abused: Not on file Physically abused: Not on file Forced sexual activity: Not on file Other Topics Concern ??? Caffeine Concern Yes Comment: 5 serving/day Social History Narrative Lives alone FAMILY HISTORY Noncontributory OBJECTIVE Resp Rate: [16] 16 Blood Pressure: (133)/(74) 133/74 Pulse Rate: [74] 74 Physical Exam: Constitutional: NAD. Resting in bed. Eyes shut due to significant vertigo Lungs: Breathing comfortably on room air. Clear to auscultation bilaterally. Cardiac: regular rate and rhythm Abdomen: Soft, non-tender, non-distended. Skin: No rash on exposed skin. Neurologic: Mental status: Alert and oriented to time, place and person Speech: Clear. Language: No evidence of aphasia. (Naming, reading, repetition and comprehension are intact.) Cranial nerves: PERRL, EOMI, R gaze evoked horizontal nystagmus visual jhaveri intact to confrontation, facial movements full and symmetric, sensation intact to light touch and pinprick in the V1-V3 distributions, hearing intact to voice, tongue protrudes in midline, there is equal elevation of the soft palate, shoulder shrug is appropriate in strength. Motor: Bilateral upper and lower extremity strength evaluated including: (R, L) deltoids (0,0), biceps (0,0), triceps (0,0), wrist extension (0,0), finger extension (0,0), interossei (0,0), iliopsoas (0,0), knee flexion (0,0), knee extension (0,0), ankle dorsiflexion (0,0), toe extension (0,0). Tone is normal in bilateral upper and lower extremities. Sensory: Sensation is intact to vibration, proprioception, pinprick of distal extremities bilaterally. Reflexes: biceps (0,0), triceps (0,0), brachioradialis (0,0), patellar (0,0) and Achilles (0,0). Plantar flexor responses are flexor-flexor. Coordination: Finger to nose and heel to montes are normal bilaterally. Gait: did not assess NIH Stroke Scale 1A. LOC: 0=alert; keenly [...] 11. Extinction: 0=No abnormality TOTAL SCORE: 0 Diagnostics: Ct Head Neck Angiogram With Iv Contrast Result Date: 01/30/2021 Narrative: EXAM: CT HEAD NECK ANGIOGRAM WITH IV CONTRAST Including 3D image post-processing. COMPARISON: CTA head and neck 12/31/2020. FINDINGS: Redemonstration of a right vertebral artery dissection. There has been some interval recanalization of the V3 segment however the irregular dissection flap with associated thrombus at the V3/V4 junction remains visible and results in a focal (at least 90%) stenosis where the vessel transverses the C1 arch. Although the stenosis here is high-grade, it has improved in the V3 segment. Expected evaluation of the now chronic right inferior cerebellar infarct. Remainder unchanged. The bilateral carotid and left vertebral arteries are patent throughout the neck without evidence of vascular injury or significant stenosis. Stable left ICA 2 mm supraclinoid and 5-6 mm paraclinoid aneurysms. Widely patent and normal caliber bilateral MCAs, ACAs and director mba. Patent anterior and right posterior communicating arteries. Diminutive left posterior communicating artery. Encephalomalacia medial left occipital lobe. Normal caliber ventricles. Postoperative changes both globes. Bilateral maxillary antrostomies. Aplastic frontal sinuses. Well-aerated mastoid air cells. Posterior cervicothoracic spine fusion. Reverse left TSA. Spinal stimulator leads terminate at the thoracic spine. Impression: 1. 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 Slightly decreased high-grade stenosis at the V3/4 junction with increased flow in the distal V4 segment. 2. Evolving, now chronic right cerebellar infarct. 3. Stable left ICA supraclinoid and paraclinoid aneurysms. Head W/o Contrast-outside Ct Neuro Result Date: 01/31/2021 Narrative: This order has been created and auto-finalized to support the import of outside images. If available, original interpretation can be found on the Media Tab in Chart Review, in Document Viewer, or as an image in QREADS. If a re-interpretation or overread is required please follow defined workflow. Head W/o Contrast-outside Ct Neuro Result Date: 01/31/2021 Narrative: This order has been created and auto-finalized to support the import of outside images. If available, original interpretation can be found on the Media Tab in Chart Review, in Document Viewer, or as an image in QREADS. If a re-interpretation or overread is required please follow defined workflow. I have reviewed the labs, ECG and diagnostics from last 6 months. 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 - MRI Brain: ordered - Carotid: Partial interval recanalization of the right vertebral artery dissection. Evolving, now chronic right cerebellar infarct. Stable left ICA supraclinoid and paraclinoid aneurysms. - Baseline ECG NSR 60 - Stroke risk factor work up: - HbA1c 6.1 - TSH 0.3 - Lipid panel pending Management: - Neuro Checks per Unit protocol => stat noncontrast head CT for change in exam - Cardiac Monitoring for 24 hours - Monitor vitals per unit routine protocol - Blood Pressure: -Permit hypertension up to 220/110 for first 24 hours - Antihypertensives: hold home antihypertensives; resume half dose beta blockade with holding parameters - Blood Glucose - BG Goal: 140-180 - Hold oral DM meds and start moderate correction scale insulin if indicated based upon initial results - Antithrombotics: aspirin 325 - Statin: Atorvastatin 40 - Passed bedside swallow, Regular Diet - Brain Rehab Team consulted, appreciate recs (document no deficit if not needed) - SWS consulted for assistance with d/c planning, appreciate recs # Generalized Anxiety Disorder # Bipolar II Disorder # PTSD # Fibromyalgia # Uncomplicated Opioid Dependence # Chronic Pain Syndrome # Fibromyalgia # Bilateral Occipital Neuralgia # Tobacco Use Disorder # 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 [facility] Stroke Neurology Service Associate Director Of Biostatistics: Nan England M.D. STROKE DOCUMENTATION: Stroke Center Measures: Did this patient have a possible stroke/TIA/hemorrhage?: Yes Type of stroke: Ischemic stroke/Transient ischemic attack Date of NIHSS completed: January 31, 2021. Time of NIHSS completed: 10:00 p.m. Admission NIHSS total score: 0. Date last known well: January 31, 2021. Time last known well: This afternoon. Onset of symptoms - date: January 31, 2021. Onset of symptoms - time: This afternoon. IV Alteplase candidate?: No Reason not a candidate: Mild/improving symptoms Intra-arterial candidate for intervention?: No Reason not a candidate: Not performed due to mild/improving symptoms Patient admitted solely for an elective carotid intervention: No Antithrombotic started on admission: Not started due to hemorrhage and/or hemorrhagic risk Prestroke modified Richmond Score (mRS): 1 - No significant disability. Able to carry out all usual activities, despite some symptoms. Physical Medicine (PMR) consulted: Consulted and will evaluate the patient Speech therapy consulted to evaluate patient: Not consulted because no speech/language deficits Pharmacologic VTE prophylaxis: instituted Tobacco use: Currently uses tobacco, smoking cessation consult will be performed Patient on lipid-lowering agent prior to arrival?: Yes Relevant cerebrovascular risk factors: Tobacco use, obesity (BMI 30 or greater) and hormonal contraceptive use SELING PROGRAM LEADER documented in this encounter Consult Notes Pamela Middleton M.S., LThomasC., C.T.T.S. - 02/03/2021 10:08 AM CSTAssociated Order(s): IP CONSULT TO INTERNAL MEDICINE NICOTINE DEPENDENCE; IP CONSULT TO INTERNAL MEDICINE NICOTINE DEPENDENCE SUBJECTIVE Consults REASON FOR CONSULT Admitting Service: Neurology Reason for Consult: Tobacco Use Disorder HISTORY OF PRESENT ILLNESS Angie Bender is a 55 y.o. female who was seen at [place] and is being evaluated for tobacco use disorder. Tobacco use history: Patient averages 10 cigarettes per day, and has smoked this amount for the lastyear. Before this, she usually smoked 2 ppd. She was seen by our department 04/15 and at that time initiated an effort to stop smoking. She was successful for a while, but relapsed due to drinking alcohol with friends and having cravings to smoke. She smokesher first cigarette within 5 minutes of waking. Angie started using tobacco at the age of 13. She has made a few quit attempts with her longest period of abstinence being 5 years. Angei has tried stopping using various methods such as cold turkey , nicotine patches, nicotine inhaler , Chantix and reducing tobacco use. The patient has experienced the following withdrawal symptoms: anxiety, depression, desire to smoke, difficulty concentrating, frustration, impatience, irritability, nervousness and restlessness. Motivation: Angie shares that she is very motivated to stop using tobacco at this time. Her reasonsto quit are to be able to live longer, to breathe better and to improve health . Perceived Barriers to quitting: Patient identifies multiple stressors , Continued motivation to sustain cessation, Implementation of behavioral changes to sustain cessation and Lack of support system. OBJECTIVE Patient states no contraindications to nicotine replacement. She does have contraindications to Wellbutrin. She has a hx of head trauma with loss of consciousness and stroke. ASSESSMENT / PLAN 1. Tobacco use disorder Ms. Bender has initiated a quit attempt and plans to remain tobacco free. The patient is currently using 14 mg patch which should be changed to the recommended dose of 21 mg patch and add nicotrol inhaler. Medication Plan: Discharge medications will be prescribed by a physician at the [facility] In hospital medications to be provided by the primary service team The following discharge medications are recommended for the patient: Nicotine patch: 21 mg Initial doses for 4-6 weeks then taper dose in 7 to 14 mg steps every 2 to 4 weeks based on patient's report of withdrawal symptoms, urges, and comfort. Adverse effects may include nausea (reduce patch dosage), local patch reaction such as redness or itching (use of topical hydrocortisone cream and rotating patch can reduce local reaction), severe site reaction (e.g. edema, blistering) Nicotine inhaler: Puff on dispenser as needed to manage craving and withdrawal. Adverse effects may include sore throat and cough (which tends to lessen over time). Nicotine nasal spray: 1-2 times per hour (up to 5 times per hour or 40 times per day) as needed to control cravings and withdrawal symptoms. Adverse effects may inlcude sneezing, cough, throat irritation, watery eyes, running nose (which tend to lessen afer several days of use). I advised the patient that if she experiences any adverse effects from the medication, that she should stop taking and contact their health care provider. This medication plan is within approved guidelines and patient was screened for contraindications, provided education on medications and reviewed side effects. Behavioral Plan: Cognitive and behavorial techniques for coping with urges to smoke were reviewed as well as planningfor triggers, changing routines, and getting support. Strategies such as avoid places, people or activities that seem to trigger urges to smoke, distraction , keep hands busy, deep breathing, drink some water, use NRT, physical activity and take up a hobby were discussed to help manage urges and cravings. The patient did accept the booklet entitled My Smoke-Free Future. Follow-Up: I encouraged Angie Bender to contact me with any questions or concerns. I provided the patient with educational materials and [facility] contact information. Patient is unable to schedule follow-up appointment at this time but will receive follow-up phone call in 30 days. She will call with specific needs of support. She is interested in online group and will call if shewould like to sign up.. Patient is ready to learn, No apparant barriers to learning were identified. Patient understands andagrees with plan. 20 minutes of our visit was spent on tobacco use disorder counseling. Pamela Middleton M.S., Delvin, C.T.T.S. 02/03/2021 10:08 AM COUNSELING PROGRAM LEADER SELING PROGRAM LEADER Catalina Panchal, RBrittonNBritton - 02/02/2021 2:11 PM CSTAssociated Order(s): IP CONSULT TO CARE MANAGEMENT Discharge Planning Assessment SUBJECTIVE Referral Data Referral Source: Early Screen for Discharge Planning Referral Reason: Discharge Planning Discharge Planning: Home health Who was present during the interview?: Patient Oracle Specialist Services Used: No Patient Information Primary Caregiver: Self Legal Information Legal Decision Maker: Self Legal Status: Voluntary Caregiver Information Self Services Requested Home Health: penitentiary Level of Care: Intermediate OBJECTIVE Functional Status (ADLs) Functional Status: Minimum assistance Assistive Devices: Walker, Shower chair, Eyeglasses, Hearing aids Dressing: Independent Feeding: Independent Bathing: Independent Grooming: Independent Toileting: Independent Transfer to/from Bed, Chair Etc.: Independent Mobility: Independent Meal Prep: Independent Medication Setup/Administration: Needs assistance Telephone Use: Independent Housekeeping: Independent Shopping: Independent Managing Finances: Independent Behavior: Oriented Communication: Talks, Understands speaking, Understands Bahamian Environmental Supports Home Environment: House Anticipated Needs/Assistive Devices Transportation Needs: Support from family Finance/Insurance Primary insurance: MEDICARE A AND B Secondary insurance: MEDICA Does the Patient have any Financial Concerns?: No Income Source: Disability (Comment), Social security Income/Expense Information: Income meets expenses Discharge Planning Barriers To Discharge: Ability to acquire knowledge, Home design Strengths: Support of immediate family Type of Residence: Private residence Support Systems: Children Home Care Services: Yes Type of Home Care Services: Nurse visit Home Care Agency Name : [facility] [place]ticip[place] [facility] [place] Dis[place] Services: Nursing Does the patient need discharge transport arranged?: No ASSESSMENT / PLAN Plan Assessment: The life enrichment specialist met with Angie Bender to discuss her current hospitalization and home goingneeds. The patient was unaccompanied. The patient was a reliable historian, but was lacking completedetails at times. The role of life enrichment specialist was reviewed. The patient reviewed her prior level of care and support system. The patient receives support from her son. The patient described her living environment as a single level home with level entry. Housekeeping, grocery shopping, meal prep, and other household responsibilities have previously been completed by patient. life enrichment specialist discussed the patient's potential needs at dismissal based on their home setti ng, previous needs and responsibilities, homebound status, and relevant assessments with the patient. The patient will be safe and supported to return home with [facility] or previous services noted above when medically ready. Support will be provided by home care nurse and the patients son. The patient demon strated understanding when discussing her home going plans and anticipated needs. The patient reports understanding that she will dismiss from the hospital when medically stable. Pending hospital course and medical readiness, no barriers to dismissal have been identified at this time. Plan: The patient agrees with the following plan. 1. Patient's anticipated discharge disposition is: Home to Self Care 2. Transportation upon dismissal will be provided by family--son. 3. life enrichment specialist recommended nothing at this time. 4. life enrichment specialist provided information regarding the dismissal process. 5. life enrichment specialist placed or requested the following hospital-based consult orders and/or referrals:None. 6. life enrichment specialist will continue to assess for homegoing needs with the interdisciplinary team. 7. life enrichment specialist encouraged the patient to reach out with any questions/concerns. Care Management will continue to follow. Patient to discharge with home health care. Located [facility] - Admitted Since 01/31/2021 The patient receives longterm visits 1-2x week. She has qualified for AIRLINE FLIGHT ATTENDANT, homemaking, and home health aide visits, but was unable to keep appointments. She also has home delivered meals and an emergency response button at home. Contact: Nursing - Donna NURSING: - Complete documentation in the Discharge [...] and assist if needs arise. Signed by: Hailey Panchal R.N. 02/02/2021 SELING PROGRAM LEADER Radha Samuel PBrittonT. - 02/01/2021 4:51 PM CST Physical Therapy Acute Hospital Inpatient Evaluation/Treatment By co-signing this note, the provider certifies the therapy being provided to this patient is reasonable and necessary for the diagnosis or treatment of this patient. SUBJECTIVE Referring/Attending Provider: Nan Rios M.D. Patient's Name: Angie Bender Reason for Referral: PT evaluate and treat- brain consult. Medical Diagnosis: 1. Stroke (HCC) Onset Date: 01/31/21 Payor: MEDICARE / Plan: MEDICARE A AND [...] of Present Illness: # Acute onset vertigo # Right vertebral artery thrombus on warfarin# Query right vertebral artery dissection# Subtherapeutic INR # Chronic right cerebellar infarct# Left occipital encephalomalacia # History of posterior circulation embolic infarcts - 03/2019# Left ICA supracl inoid and paraclinoid aneurysms See Hospital Admission History and Physical for full history of present illness. Precautions Other Precautions: fall, vertigo, 5#lifting restriction left arm (left shoulder replacement 2mo ago) Patient/Caregiver Goals: To return home with same level of support Patient Comments: Agreeablet to PT/OT Prior Function/Occupational Profile Dominant Hand: Right Lives With: Alone Receives Help From: Family, Friend(s), cardroom attendant ADL Assistance: Independent IADL/Homemaking Assistance: Required assistance IADL/Homemaking Assistance Comments: Has assistance with meals on wheels, cleaning, and medication management Occupational Role: On disability Prior Mobility/Functional Transfers Level of [place]: Independent Previous Transfer/Mobility Assistance Comments: Patient reports that she was indpendent ambulating at home and in the community. However she has fallen recently. She has also used a four-wheeled walkerat times. Home Living Type of Home: Apartment Home Layout: One level Home Access: Level entry Home Equipment Gait Devices Owned: Four-wheeled walker, Cane Fall Risk (65 and older) Fall in the last 12 months: Yes Did you have an injury with the fall?: Yes Are you fearful of falling?: No Fall Risk Comments: Patient is at risk for falls secondary due to instability OBJECTIVE Pain: Patient was using heat pack to manage neck/shoulder pain today. Vitals:Not indicated at this time Cognition Arousal/Alertness: Appropriate responses to stimuli Attention: Addressed, no concerns noted Initiation: No difficulty with initiation Orientation: Oriented X4 Following Commands: Follows all commands/directions without difficulty Safety/Judgment: Impairments noted Self-monitoring/Self-correct Consistently: Mild Insight/Awareness of Deficits: Mild Baseline Vision/Correction: Wears glasses only for reading(wears glasses for driving) Light Touch: Partial deficits in the RLE Proprioception: Partial deficits in the RLE Coordination Ataxia: Mild ataxia while ambulating. Heel to Montes Test: Eyes Open: Impaired(min incoordination right worse than left) ROM - Upper Extremity Screen: Impaired left ROM - Upper Extremity Screen Comments: left shoulder replacement 2 years ago ROM - Lower Extremity Screen: Addressed, no concerns noted Strength - Upper Extremity Screen: Impaired left Strength - Upper Extremity Screen Comments: left shoulder weakness and left hand weakness Strength - Lower Extremity Screen Comments: Antigravity strength bilateral LE's but generalized weakness. Static Sitting-Balance: Good (Maintains balance without support) Dynamic Sitting-Balance: Good (Maintains balance without support) Static Standing-Balance: Fair (Maintains balance with handheld/contact guard assistance) Dynamic Standing-Balance: Poor (Requires assistance to maintain balance) Bed Mobility - Supine to Sit # of Assistants: 1 Level of Assistance: Minimal assistance Device: Bed rail Cuing: Verbal Bed Mobility - Sit to Supine # of Assistants: 1 Level of Assistance: Minimal assistance Device: Bed rail Cuing: Verbal Comments: Patient reported she was used to getting in the bed on the opposite side. The way she did it today was difficult for her left UE due to shoulder replacement. Sit to Stand Transfers # of Assistants: 1 Transfer Surface: Bed Transfer Equipment: Front wheeled walker Level of Assistance: Minimal assistance Assessment/Delivery: Assessed, Therapist assisted, Instructed Comments: Cued for hand placement Stand to Sit Transfers # of Assistants: 1 Transfer Surface: Bed Transfer Equipment: Front wheeled walker Level of Assistance: Minimal assistance Assessment/Delivery: Assessed, Instructed, Therapist assisted Comments: Cued for hand placement Gait Assessment/Training Distance (m): 37 m Surface: Smooth/hard Device: Front-wheeled walker # of Assistants: 1 Level of Assistance: Minimal assistance Quality/Pattern: Ataxic Stability: Min to moderate instability. Better on the return trip. Assessment of Gait: Patient ambulated with front wheeled walker with min A for min instability, mildbuckling of right LE. Ataxic trunk. Cueing Provided: Verbal, Tactile Training/Intervention: Steadying assistance. Response: Improved stability on the return trip to her room. AM-PAC BASIC MOBILITY SHORT FORM: Interpretation: 17.9 Average score of those going home with home health At the end of today's therapy session patient was left in bed with an appropriate call light within reach. Patient's needs and questions addressed during today's session. Contact monitoring: PPE used during therapy: Therapist was wearing the following PPE throughout entire session: surgicalmask and eye protection Assessment Ms. Bender is currently requiring min assistance for transfers and ambulation with a walker due to some mild ataxia/instability. Patient lives alone and therefore will need to be mobilizing at an independent level to go home safely. She does seem to have a network of support with some in home services and a son who lives nearby. PT will work with patient to maximize her safety and independence with all mobility. Rehab Potential: Ms. Bender has Good potential to achieve established physical therapy goals withinthe time frame outlined below. Barriers to a safe discharge home: Current functional status is min A. Patient needs to be at a modified independent level to safely discharge home alone. She may need in home PT- but this will be determined over the next couple of sessions. Barriers to Discharge Home: Current functional status Barriers to Discharge Comments: Mild balance instability with mobility Comorbid Conditions: Cerebrovascular accident, Mental health disorder Personal Factors: Living situation, Needs assistive device Discharge Therapy Needs - PT: (To be determined. May benefit from in home PT?) Equipment Recommended - PT: 4-wheeled walker, Front-wheeled walker Functional Goals and Timeframes: PT Goal #1: Patient will be indepdent with transfers using least restrictive device to facilitate a safe dc. PT Goal #1 Date: 02/09/21 PT Goal #2: Patient will ambulate with least restrictive device 75 meters independently to faciliatea safe dc home. PT Goal #2 Date: 02/09/21 PT Goal #3: Patient will negotiate 4-6 steps with a railing and stand by assistance. PT Goal #3 Date: 02/09/21 Plan Patient agrees with the plan of care and goals. Treatment Plan: PT Frequency: 5 times per week PT Amount: 1 visit per day PT Inpatient Duration : Until goals are met or hospital discharge Plan: Plan of care initiated Treatment interventions may include: Treatment/Interventions: Therapeutic exercise, Therapeutic functional activity, Neuromuscular re-education, Gait training Clinical Presentation: Evolving Number of Examination elements: 3 Clinical Decision Making: Low complexity clinical decision making Time Spent with Patient PT Evaluation (min): 15 min Therapeutic Activity (min): 10 min Total Timed Units (min): 10 min Total Treatment Time (min): 25 min Radha Samuel P.T. SELING PROGRAM LEADER Rosario Lopez O.T. - 02/01/2021 3:17 PM CST Occupational Therapy Acute Hospital Inpatient Evaluation/Treatment SUBJECTIVE Referring/Attending Provider: Nan Rios M.D. Patient's Name: Angie Bender Reason for Referral: OT to evaluate and treat- Brain Medical Diagnosis: 1. Stroke (HCC) Onset Date: 01/31/21 Payor: MEDICARE / Plan: MEDICARE A AND [...] of Present Illness: # Acute onset vertigo # Right vertebral artery thrombus on warfarin# Query right vertebral artery dissection# Subtherapeutic INR # Chronic right cerebellar infarct# Left occipital encephalomalacia # History of posterior circulation embolic infarcts - 03/2019# Left ICA supracl inoid and paraclinoid aneurysms See Hospital Admission History and Physical for full history of present illness. Precautions Other Precautions: fall, vertigo, 5#lifting restriction left arm (left shoulder replacement 2mo ago) Patient/Caregiver Goals: To return home with same level of support Patient Comments: Agreeable to OT/PT Prior Function/Occupational Profile Dominant Hand: Right Lives With: Alone Receives Help From: Family, Friend(s), cardroom attendant ADL Assistance: Independent IADL/Homemaking Assistance: Required assistance IADL/Homemaking Assistance Comments: Has assistance with meals on wheels, cleaning, and medication management Driving: Independent Occupational Role: On disability Occupational Role Comments: Previously worked at a [email or web address] and [employer] Prior Mobility/Functional Transfers Level of [place]: Independent Home Living Type of Home: Apartment Home Layout: One level Home Access: Level entry Bathroom Shower/Tub: Tub/shower unit Tub/shower unit location: Main floor Bathroom Toilet: Standard Bathroom Accessibility: Yes How Accessible: Accessible via walker Home Equipment Gait Devices Owned: Four-wheeled walker, Cane Other DME Equipment : (electric massage chair that patient sleeps in) Bathroom Equipment: None Fall Risk (65 and older) Fall in the last 12 months: Yes(fall after left shoulder surgery 2 months ago.) Did you have an injury with the fall?: Yes(hit her head) Are you fearful of falling?: No Fall Risk Comments: Patient is at risk for falls secondary to left knee instability during mobility. OBJECTIVE Cognition Cognitive assessment method: Therapist observations, Patient self-report Arousal/Alertness: Appropriate responses to stimuli Attention: Addressed, no concerns noted Initiation: No difficulty with initiation Orientation: Oriented X4 Following Commands: Follows all commands/directions without difficulty Memory: Addressed, no concerns noted Problem Solving: Addressed, no concerns noted Safety/Judgment: Impairments noted Balance Static Sitting-Balance: Good (Maintains balance without support) Dynamic Sitting-Balance: Good (Maintains balance without support) Static Standing-Balance: Fair (Maintains balance with handheld/contact guard assistance) Dynamic Standing-Balance: Poor (Requires assistance to maintain balance) Baseline Vision/Correction: Wears glasses only for reading Light Touch: No deficits Current Hearing Function: Hearing intact ROM - Upper Extremity Screen: Impaired left ROM - Upper Extremity Screen Comments: left shoulder replacement 2 years ago Strength - Upper Extremity Screen: Impaired left Strength - Upper Extremity Screen Comments: left shoulder weakness and left hand weakness Gross Hand Function Right Hand Gross Grasp: Functional Left Hand Gross Grasp: Impairment noted(Patient reports dropping things when in left hand) Right Hand Coordination: Functional Left Hand Coordination: Functional Current ADL / IADL Function ADL Comments: Patient was able to don socks independently using a figure 4 technique Bed Mobility - Rolling # of Assistants: 1 Level of Assistance: Minimal assistance Device: Bed Rail Cuing: Verbal Bed Mobility - Supine to Sit # of Assistants: 1 Level of Assistance: Minimal assistance Device: Bed rail Cuing: Verbal Bed Mobility - Sit to Supine # of Assistants: 1 Level of Assistance: Minimal assistance Device: Bed rail Cuing: Verbal Bed, Chair, Wheelchair Transfers # of Assistants: 1 Transfer Surface: Bed Transfer Approach: Ambulating Transfer Equipment: Front wheeled walker Level of Assistance: Minimal assistance Assessment/Delivery: Assessed, Therapist assisted, Instructed Toilet Transfers # of Assistants: 1 Transfer Surface: Toilet Transfer Approach: Ambulating Transfer Equipment: Grab bars, Front wheeled walker Level of Assistance: Minimal assistance Assessment/Delivery: Assessed, Therapist assisted Discussed recommendations for use of shower chair for fall prevention. Patient reports that she does not bathe unless someone is present to supervise. Patient also has a lifeline pendant to call for assistance. Patient reports that she does not like shower chairs. At the end of today's therapy session patient was left in bed with the bed alarm on with an appropriate call light within reach. Patient's needs and questions addressed during today's session. Contact Monitoring: PPE used during therapy: Therapist was wearing the following PPE throughout entire session: surgicalmask and eye protection Patient was wearing a mask during therapy session: yes Assessment Patient is currently mobilizing with minimal assistance x 1, front wheel walker, and gait belt. Patient is completing toileting and toilet transfers with minimal assistance x 1. Patient was able to donsocks independently, seated at edge of bed, using a figure 4 technique. Patient would need to be modified independent with mobility and self-care to return to home alone. Rehab Potential: Ms. Bender has good potential to achieve established occupational therapy goals within the time frame outlined below. Barriers to Discharge Home: Current functional status Barriers to Discharge Comments: Mild balance instability with mobility Comorbid Conditions: Cerebrovascular accident, Mental health disorder Personal Factors: Living situation, Needs assistive device Discharge Therapy Needs - OT: Ongoing skilled therapy recommended in a post- acute setting(vs Home toself-care with support from son (depending upon progress)) Level of Care Recommended - OT: 24 hour supervision, Assistance with mobility Recommended Adaptive Equipment - OT: Shower chair without back, Transfer tub bench, Grab bar(s) in shower(Patient reports she doesn't like shower chairs.) Functional Goals and Timeframes: OT Goal #1: Patient will be modified independent with toileting and toilet transfer by discharge OT Goal #2: Patient will complete dressing independently by discharge OT Goal #3: Patient will be independent with home exercise resistive theraband program for left shoulder and foam block strengthening for left hand by discharge. Plan Patient agrees with the plan of [...] Time Spent with Patient OT Evaluation (min): 45 min Home Management Training (min): 15 min Time Calculation Total Timed Units (min): 15 min Total Treatment Time (min): 60 min Rosario Lopez O.T. SELING PROGRAM LEADER Maria M Duque M.D. - 02/01/2021 7:21 AM CSTAssociated Order(s): IP CONSULT TO PHYSICAL MEDICINE & REHABILITATION Consult received for Physical Medicine and Rehabilitation Consult Service. I reviewed the electronic health record. I have triaged to therapy only; no botany teacher consult appears to be necessary at this time. If therapists or referring service feel that a botany teacher review is necessary, please send a new consult request with only the Physician consult - Physical Medicine and Rehabilitation consult (hospital) item selected. SELING PROGRAM LEADER documented in this encounter Nursing Notes Sofie Sutton R.N. - 02/03/2021 5:20 PM CST Shift Goals: Clinical Goals for the Shift: Pt will be discharged during shift Identify possible barriers to meeting goals/advancing plan of care: Difficulty contacting home health care agency End of Shift Summary: Pt remained safe during shift. Pt was discharged to home self care with home health assistance. Electronically signed by: Sofie Sutton R.N. 02/03/21 5:24 PM COUNSELING PROGRAM LEADER SELING PROGRAM LEADER Sofie Sutton R.N. - 02/03/2021 5:20 PM CST Pt discharged to home self care with home care services. Attempted to call report to RADHA Thompson multiple times and left message, but was unable to get in contact with her. Spoke with Marlen at home care agency and verified patient was able to discharge before talking with Donna. Reassured this would be fine. Pts IV removed. VS taken. Education completed. AVS reviewed. Questions answered. Escort called. Transport arranged by family. Belongings sent with patient. Electronically signed by: Sofie Sutton R.N. 02/03/21 5:22 PM COUNSELING PROGRAM LEADER SELING PROGRAM LEADER Marlene Grover R.N. - 02/03/2021 5:14 AM CST Shift Goals: Clinical Goals for the Shift: Patient will remain safe and free from falls Identify possible barriers to meeting goals/advancing plan of care: impulsive End of Shift Summary: Goal met, using call light. Pt restless overnight, prn meds given. Problem: PAIN - ADULT Goal: PT VERBALIZES/DEMONSTRATES ADEQUATE COMFORT LEVEL OR BASELINE Outcome: Progressing Problem: KNOWLEDGE DEFICIT Goal: Patient/family/caregiver demonstrates understanding of disease process, treatment plan, medications, and discharge instructions Outcome: Progressing Problem: SAFETY ADULT Goal: Maintain a safe environment Outcome: Progressing Problem: DISCHARGE PLANNING Goal: Patient discharge needs identified Outcome: Progressing SELING PROGRAM LEADER Mague Rudolph RBetsy - 02/02/2021 5:03 AM CST Shift Goals: Clinical Goals for the Shift: patient will use call light appropriately Identify possible barriers to meeting goals/advancing plan of care: End of Shift Summary: patient met goal SELING PROGRAM LEADER Valarie Grayson RBrittonN. - 02/01/2021 5:59 PM CST Shift Goals: Clinical Goals for the Shift: Patient will tolerate MRI Identify possible barriers to meeting goals/advancing plan of care: Patient's medical photographer End of Shift Summary: Goal not met. MRI scheduled for Tuesday related to device monitoring. Electronically signed by: Valarie Grayson R.N. 02/01/21 5:59 PM COUNSELING PROGRAM LEADER Problem: SKIN/TISSUE INTEGRITY Goal: Skin/Tissue integrity maintained or improved Outcome: Progressing Problem: SAFETY ADULT Goal: Maintain a safe environment Outcome: Progressing Problem: SAFETY ADULT - RISK FOR FALL AND OR FALL INJURY Goal: Patient remains free from fall/fall injury Outcome: Progressing SELING PROGRAM LEADER documented in this encounter Miscellaneous Notes Hospital Course - Bisi Vieyra M.D. 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 ?? These episodes of acute onset headache and vertigo initially began in March 2019 at which time she wasfound to have an occlusive thrombus in the distal R vertebral artery with bilateral cerebellar/occipital infarcts on MRI. She was subsequently anticoagulated with warfarin for a duration of 6 months atwhich time she was transitioned to aspirin 325 on 10/02/19. Follow-up imaging in August 2020 demonstrated resolution of her thrombus with plain to continue aspirin. ?? Unfortunately, she again began experiencing severe vertigo on December 22 2020 prompting a local EDvisit at which time she was discharged on meclizine with minimal improvement in her symptoms. She subsequently underwent CT imaging on December 31, 2020 which demonstrated an evolving right cerebellarinfarct as well as a mildly expansile near occlusive thrombus in the right vertebral artery. The plan at that time was to initiate warfarin with a slow drift towards therapeutic INR while bridging on full dose aspirin to avoid risk of hemorrhagic transformation. She has subsequently had labile INRs requiring re- dosing of her warfarin as well as recurrent episodes of headache and vertigo. ?? She presented again to OSH on January 25 for similar symptoms with plan to undergo MRI/MRA. For ease of time she underwent CT head and neck angiogram on January 30 2021 which demonstrated partial interval recanalization of her right vertebral artery dissection, slightly decreased high grade vertebral artery stenosis, and an evolving chronic right cerebellar infarct. ?? On 01/31 the patient notes she was shopping when she developed sudden onset pain in the right posterior neck with radiation to the crown of her head when bending down. Upon standing straight she developed vertigo described as a sensation of room spinning with associated diaphoresis, nausea, and generalized warmth. She notes making it to her car with great effort due to difficulty walking following which her son took her an outside Emergency Department. ?? Per [facility] triage note, the patient was hemodynamically stable and afebrile on presentation. INR at that time was 1.35. NCHCT demonstrated a cerebellar infarct and a right vertebral artery dissection. Shewas subsequently admitted directly to [facility] Neurology Stroke service for further workup and management. ?? On arrival to the floor, the patient remains hemodynamically stable and afebrile. She continued to endorse headache and vertigo, which did improved compared to when she was admitted. She was started onapixaban 5 mg twice daily in favor of her warfarin. An MRI brain with and without contrast was obtained which revealed infarctions in the posterior circulation of differing ages, likely recent acute/subacute, subacute to chronic, and chronic. An MRA was also obtained which revealed relatively high-grade narrowing of the distal V3 segment of the right vertebral artery and mild narrowing of the proximal V4 segment of the right vertebral artery. Reassuringly, there was no worsening of the degree of stenosis and no extension of the length of the stenotic/thrombotic segment. She was seen by the brain rehab team who recommend continued physical therapy at home and family will provide 24 hour supervision. She will follow up with Dr. Diehl after a CTA head/neck in 3 months. SELING PROGRAM LEADER documented in this encounter Plan of Treatment Scheduled Referrals Name Type Priority Associated Diagnoses Order S chedule Non-[facility] Outpatient Referral Routine Stroke (HCC) Ordered: Health Referral Chronic Pain Syn drome 02/03/2021 Stroke Cerebrovascular Accident Personal History documented as of this encounter Procedures Procedure Name Priority Date/Time Associated Comments Diagnosis MR NECK ANGIOGRAM RAD - Routine 02/03/2021 Results f or WITHOUT AND WITH IV (most inpatients 12:39 PM COUNSELING PROGRAM LEADER this procedure CONTRAST and all are in the outpatients) results section. MR BRAIN WITHOUT AND RAD - Routine 02/03/2021 Result s for WITH IV CONTRAST (most inpatients 12:34 PM COUNSELING PROGRAM LEADER this pr ocedure and all are in the outpatients) results section. DX ABDOMEN SUPINE WITH RAD - Routine 02/02/2021 3:26 R esults for UPRIGHT OR DECUBITUS 2 (most inpatients PM COUNSELING PROGRAM LEADER t his procedure VIEWS and all are in the outpatients) results section. PROTHROMBIN TIME (PT), Routine 02/02/2021 5:20 Re sults for P AM COUNSELING PROGRAM LEADER this procedure are in the results section. LIPID PANEL, S Routine 02/01/2021 5:21 Results fo r AM COUNSELING PROGRAM LEADER this procedure are in the results section. RENAL FUNCTION PANEL, S Routine 02/01/2021 5:21 R esults for AM COUNSELING PROGRAM LEADER this procedure are in the results section. FOLATE, S Routine 02/01/2021 5:21 Results for AM COUNSELING PROGRAM LEADER this procedure are in the results section. VITAMIN B12 ASSAY, S Routine 02/01/2021 5:21 Resu lts for AM COUNSELING PROGRAM LEADER this procedure are in the results section. ECG Routine 01/31/2021 Results for 11:35 PM COUNSELING PROGRAM LEADER this procedure are in the results section. SARS CORONAVIRUS 2, Routine 01/31/2021 Results for RNA, RAPID POC, V 10:32 PM COUNSELING PROGRAM LEADER this proce dure are in the results section. ELECTROLYTE (CHEM 4) Routine 01/31/2021 9:44 Resu lts for PANEL, S/P PM COUNSELING PROGRAM LEADER this procedure are in the results section. ACTIVATED PARTIAL Routine 01/31/2021 9:44 Results for THROMBOPLASTIN TIME PM COUNSELING PROGRAM LEADER this pro cedure (APTT), P are in the results section. PROTHROMBIN TIME (PT), Routine 01/31/2021 9:44 Re sults for P PM COUNSELING PROGRAM LEADER this procedure are in the results section. CBC WITH DIFFERENTIAL, Routine 01/31/2021 9:44 Re sults for B PM COUNSELING PROGRAM LEADER this procedure are in the results section. ALANINE Routine 01/31/2021 9:44 Results for AMINOTRANSFERASE (ALT), PM COUNSELING PROGRAM LEADER this procedure S/P are in the results section. ASPARTATE Routine 01/31/2021 9:44 Results for AMINOTRANSFERASE (AST), PM COUNSELING PROGRAM LEADER this procedure S/P are in the results section. THYROID-STIMULATING Routine 01/31/2021 9:44 Resul ts for HORMONE-SENSITIVE PM COUNSELING PROGRAM LEADER this proce dure (S-TSH) are in the results section. HEMOGLOBIN A1C, B Routine 01/31/2021 9:44 Results for PM COUNSELING PROGRAM LEADER this procedure are in the results section. documented in this encounter Results MR Neck Angiogram without and with IV Contrast (02/03/2021 12:39 PM COUNSELING PROGRAM LEADER) Anatomical Region Laterality Modality Neck, Neuroradiology RST LOS, Neuroradiology [facility] N/A Magnetic Resonance Neuroradiology [facility] Specimen (Source) Anatomical Collection Method Collection Time Re ceived Time Location / / Volume Laterality 02/03/2021 11:37 AM COUNSELING PROGRAM LEADER Impressions 02/03/2021 1:26 PM COUNSELING PROGRAM LEADER 1. Infarctions in the posterior circulation of differing ages, likely recent acute/subacute, subacute to chronic, and chronic. 2. No significant change in the relative ly high-grade narrowing of the right vertebral artery at its distal V3 segmen t, with less severe narrowing also extending into its proximal V4 segment. There has been thrombosis here and there remains partially organized thrombus at this location on recent comparison CTA, but any underlying pathology and the pre sence or absence of any acute thrombus is difficult to perceive due to technica l limitations. Narrative 02/03/2021 1:26 PM COUNSELING PROGRAM LEADER EXAM: MR BRAIN WITHOUT AND WITH IV CONTRAST, MR NECK ANGIOGRAM WITHOUT AND WITH IV CONTRAST COMPARISON: CT head 01/31/2021, CTA head and neck 01/30/2021 and 12/31/2020, outside MRI head 09/19/2019, MRA neck FINDINGS: MRI BRAIN: Multiple small scattered foci of restricted water diffusion in the bilateral cerebellar hemispheres and cer ebellar vermis, and smaller foci of restricted water diffusion in the right thalamic pulvinar and adjacent periatrial white matter, and tiny foci o f restricted water diffusion in the bilateral occipital lobes. These should represent acute/subacute infarctions. Subcentimeter foci of enhancement in the right thalamus and left paramedian cerebellum ??(series 1800 image 54) pres umably represent small subacute enhancing, versus chronic enhancing infa rctions. These were visualized on CT 01/31/[address] 12/31/2020. 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 MRA NECK: ?? No significant change since CTA 4 days prior, allowing for differences in imaging modality. Relativ arron high-grade narrowing of the distal V3 segment of the right vertebral artery and mild narrowing of the proximal V4 segment of the right vertebral artery. T his segment is not well visualized on axial T1-weighted pre-gadolinium fat sat urated images in part due to artifact from patient's posterior instrumented fu neisha (no blood products are seen in the right vertebral artery wall proximal or distal to this abnormal segment). Some partially organized thrombus was probabl y present in this segment of the right vertebral artery on comparison CTA, with a partly linear/sheetlike appearance. No worsening of the degree of stenosis a nd no extension of the length of the stenotic/thrombotic segment. The bilateral carotid arteries and left vertebral artery remain normal. Procedure Note Jose Leung M.D., M.S. - 2020 EXAM: MR BRAIN WITHOUT AND WITH IV CONTR AST, MR NECK ANGIOGRAM WITHOUT AND WITH IV CONTRAST COMPARISON: CT head 01/31/2021, CTA head and neck 01/30/2021 and 12/31/2020, outside MRI head 09/19/2019, MRA neck FINDINGS: MRI BRAIN: Multiple small scattered foci of restricted water diffusion in the bilateral cerebellar hemispheres and cer ebellar vermis, and smaller foci of restricted water diffusion in the right thalamic pulvinar and adjacent periatrial white matter, and tiny foci o f restricted water diffusion in the bilateral occipital lobes. These should represent acute/subacute infarctions. Subcentimeter foci of enhancement in the right thalamus and left paramedian cerebellum (series 1800 image 54) presum ably represent small subacute enhancing, versus chronic enhancing infa rctions. These were visualized on CT 01/31/[address] 12/31/2020. 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 MRA NECK: No significant change since CT A 4 days prior, allowing for differences in imaging modality. Relativ arron high-grade narrowing of the distal V3 segment of the right vertebral artery and mild narrowing of the proximal V4 segment of the right vertebral artery. T his segment is not well visualized on axial T1-weighted pre-gadolinium fat sat urated images in part due to artifact from patient's posterior instrumented fu neisha (no blood products are seen in the right vertebral artery wall proximal or distal to this abnormal segment). Some partially organized thrombus was probabl y present in this segment of the right vertebral artery on comparison CTA, with a partly linear/sheetlike appearance. No worsening of the degree of stenosis a nd no extension of the length of the stenotic/thrombotic segment. The bilateral carotid arteries and left vertebral artery remain normal. IMPRESSION: 1. 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 2. No significant change in the relative ly high-grade narrowing of the right vertebral artery at its distal V3 segmen t, with less severe narrowing also extending into its proximal V4 segment. There has been thrombosis here and there remains partially organized thrombus at this location on recent comparison CTA, but any underlying pathology and the pre sence or absence of any acute thrombus is difficult to perceive due to technica l limitations. Leonides NIELSON MRI PROCEDURES MR Brain without and with IV Contrast (02/03/2021 12:34 PM COUNSELING PROGRAM LEADER) Anatomical Region Laterality Modality Head, Brain, Neuroradiology RST LOS, Neuroradiology [facility] N/A Magnetic Resonance LOS, Neuroradiology [facility] Specimen (Source) Anatomical Collection Method Collection Time Re ceived Time Location / / Volume Laterality 02/03/2021 11:37 AM COUNSELING PROGRAM LEADER Impressions 02/03/2021 1:26 PM COUNSELING PROGRAM LEADER 1. Infarctions in the posterior circulation of differing ages, likely recent acute/subacute, subacute to chronic, and chronic. 2. No significant change in the relative ly high-grade narrowing of the right vertebral artery at its distal V3 segmen t, with less severe narrowing also extending into its proximal V4 segment. There has been thrombosis here and there remains partially organized thrombus at this location on recent comparison CTA, but any underlying pathology and the pre sence or absence of any acute thrombus is difficult to perceive due to technica l limitations. Narrative 02/03/2021 1:26 PM COUNSELING PROGRAM LEADER EXAM: MR BRAIN WITHOUT AND WITH IV CONTRAST, MR NECK ANGIOGRAM WITHOUT AND WITH IV CONTRAST COMPARISON: CT head 01/31/2021, CTA head and neck 01/30/2021 and 12/31/2020, outside MRI head 09/19/2019, MRA neck FINDINGS: MRI BRAIN: Multiple small scattered foci of restricted water diffusion in the bilateral cerebellar hemispheres and cer ebellar vermis, and smaller foci of restricted water diffusion in the right thalamic pulvinar and adjacent periatrial white matter, and tiny foci o f restricted water diffusion in the bilateral occipital lobes. These should represent acute/subacute infarctions. Subcentimeter foci of enhancement in the right thalamus and left paramedian cerebellum ??(series 1800 image 54) pres umably represent small subacute enhancing, versus chronic enhancing infa rctions. These were visualized on CT 01/31/[address] 12/31/2020. 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 MRA NECK: ?? No significant change since CTA 4 days prior, allowing for differences in imaging modality. Relativ arron high-grade narrowing of the distal V3 segment of the right vertebral artery and mild narrowing of the proximal V4 segment of the right vertebral artery. T his segment is not well visualized on axial T1-weighted pre-gadolinium fat sat urated images in part due to artifact from patient's posterior instrumented fu neisha (no blood products are seen in the right vertebral artery wall proximal or distal to this abnormal segment). Some partially organized thrombus was probabl y present in this segment of the right vertebral artery on comparison CTA, with a partly linear/sheetlike appearance. No worsening of the degree of stenosis a nd no extension of the length of the stenotic/thrombotic segment. The bilateral carotid arteries and left vertebral artery remain normal. Procedure Note Jose Leung M.D., M.S. - 2020 EXAM: MR BRAIN WITHOUT AND WITH IV CONTR AST, MR NECK ANGIOGRAM WITHOUT AND WITH IV CONTRAST COMPARISON: CT head 01/31/2021, CTA head and neck 01/30/2021 and 12/31/2020, outside MRI head 09/19/2019, MRA neck FINDINGS: MRI BRAIN: Multiple small scattered foci of restricted water diffusion in the bilateral cerebellar hemispheres and cer ebellar vermis, and smaller foci of restricted water diffusion in the right thalamic pulvinar and adjacent periatrial white matter, and tiny foci o f restricted water diffusion in the bilateral occipital lobes. These should represent acute/subacute infarctions. Subcentimeter foci of enhancement in the right thalamus and left paramedian cerebellum (series 1800 image 54) presum ably represent small subacute enhancing, versus chronic enhancing infa rctions. These were visualized on CT 01/31/[address] 12/31/2020. 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 MRA NECK: No significant change since CT A 4 days prior, allowing for differences in imaging modality. Relativ arron high-grade narrowing of the distal V3 segment of the right vertebral artery and mild narrowing of the proximal V4 segment of the right vertebral artery. T his segment is not well visualized on axial T1-weighted pre-gadolinium fat sat urated images in part due to artifact from patient's posterior instrumented fu neisha (no blood products are seen in the right vertebral artery wall proximal or distal to this abnormal segment). Some partially organized thrombus was probabl y present in this segment of the right vertebral artery on comparison CTA, with a partly linear/sheetlike appearance. No worsening of the degree of stenosis a nd no extension of the length of the stenotic/thrombotic segment. The bilateral carotid arteries and left vertebral artery remain normal. IMPRESSION: 1. 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 2. No significant change in the relative ly high-grade narrowing of the right vertebral artery at its distal V3 segmen t, with less severe narrowing also extending into its proximal V4 segment. There has been thrombosis here and there remains partially organized thrombus at this location on recent comparison CTA, but any underlying pathology and the pre sence or absence of any acute thrombus is difficult to perceive due to technica l limitations. Leonides Kumar M.D. IMG MRI PROCEDURES DX Abdomen Supine with Upright or Decubitus 2 Views (02/02/2021 3:26 PM COUNSELING PROGRAM LEADER) Anatomical Region Laterality Modality Abdomen, Abdominal RST LOS, Abdominal ARZ LOS, Right Digital Radiography Abdominal FLA LOS Specimen (Source) Anatomical Collection Method Collection Time Re ceived Time Location / / Volume Laterality 02/02/2021 3:49 PM COUNSELING PROGRAM LEADER Impressions 02/02/2021 3:50 PM COUNSELING PROGRAM LEADER Spinal stimulator device with tip over the T7-8 interspace. Generator pack posterior to the left janett ac crest. Postoperative changes ventral hernia repair. Surgical marylin near the GE junction. Cholecystectomy. Lung bases are clear. Narrative 02/02/2021 3:50 PM COUNSELING PROGRAM LEADER EXAM: ??DX ABDOMEN SUPINE WITH UPRIGHT OR DECUBITUS 2 VIEWS Procedure Note Rosamaria, Deep Corona M.D. - 02/02/2021Format ting of this note might be different from the original. EXAM: DX ABDOMEN SUPINE WITH UPRIGHT OR DECUBITUS 2 VIEWS IMPRESSION: Spinal stimulator device with tip over t he T7-8 interspace. Generator pack posterior to the left janett ac crest. Postoperative changes ventral hernia repair. Surgical marylin near the GE junction. Cholecystectomy. Lung bases are clear. Leonides Kumar M.D. IMG DIAGNOSTIC IMAGING PROCE DURES (ABNORMAL) Prothrombin Time (PT) (02/02/2021 5:20 AM COUNSELING PROGRAM LEADER) [facility] gist Method Time Signature Prothrombin 16.2 (H) 9.4 - 12.5 02/02/2021 DTL Time, P sec 6:12 AM COUNSELING PROGRAM LEADER INR 1.5 0.9 - 1.1 02/02/2021 DTL 6:12 AM COUNSELING PROGRAM LEADER Comment: ----ADDITIONAL INFORMATION---- Standard intensity warfarin therapeutic range: 2.0 to 3.0 ?? High intensity warfarin therapeutic rang e: 2.5 to 3.5 Specimen Anatomical Collection Method Collection Time Receive d Time (Source) Location / / Volume Laterality Blood (Blood, 02/02/2021 5:20 AM 02/03/20 5:48 Venous) COUNSELING PROGRAM LEADER AM COUNSELING PROGRAM LEADER Leonides Kumar M.D. LAB BLOOD ADD-ON Performing Organization Address City/State/ZIP Code Phon e Number [facility] - [address] [place], [place] [address] [facility] [place] [address] Laboratories-[facility] 200 [facility] Renal Function Panel (02/01/2021 5:21 AM COUNSELING PROGRAM LEADER) P athologist Signature Potassium, S 4.3 3.6 - 5.2 02/01/2021 DTL mmol/L 6:26 AM COUNSELING PROGRAM LEADER Sodium, S 139 135 - 145 02/01/2021 DTL mmol/L 6:26 AM COUNSELING PROGRAM LEADER Chloride, S 106 98 - 107 02/01/2021 DTL mmol/L 6:26 AM COUNSELING PROGRAM LEADER Bicarbonate, S 25 22 - 29 02/01/2021 DTL mmol/L 6:26 AM COUNSELING PROGRAM LEADER Anion Gap 8 7 - 15 02/01/2021 DTL 6:26 AM COUNSELING PROGRAM LEADER BUN (Blood Urea 14 6 - 21 02/01/2021 DTL Nitrogen), S mg/dL 6:26 AM COUNSELING PROGRAM LEADER Creatinine, S 0.74 0.59 - 1.04 02/01/2021 DTL mg/dL 6:26 AM COUNSELING PROGRAM LEADER eGFR-Non >90 >=60 02/01/2021 DTL Black/ mL/min/BSA 6:26 AM COUNSELING PROGRAM LEADER [place] Comment: ----ADDITIONAL INFORMATION---- Estimated GFR calculated using the 2009 CKD_EPI creatinine equation. eGFR-Black/ >90 >=60 mL/min/BSA 2020 6:26 AM COUNSELING PROGRAM LEADER DTL Comment: ----ADDITIONAL INFORMATION---- Estimated GFR calculated using the 2009 CKD_EPI creatinine equation. Calcium, Total, S 9.2 8.6 - 10.0 mg/dL 02/01/2021 6:26 AM COUNSELING PROGRAM LEADER DTL Glucose, S 96 70 - 140 mg/dL 02/01/2021 6:26 AM COUNSELING PROGRAM LEADER D TL Albumin, S 3.6 3.5 - 5.0 g/dL 02/01/2021 6:26 AM COUNSELING PROGRAM LEADER D TL Phosphorus (Inorganic), S 4.0 2.5 - 4.5 mg/dL 02/02/20 6:26 AM COUNSELING PROGRAM LEADER DTL Specimen Anatomical Collection Method Collection Time Receive d Time (Source) Location / / Volume Laterality Blood (Blood, 02/01/2021 5:21 AM 02/02/20 5:52 Venous) COUNSELING PROGRAM LEADER AM COUNSELING PROGRAM LEADER Gerald England M.D. LAB BLOOD ADD-ON Performing Organization Address City/[facility] Phon e Number [facility] - [address] [place], [place] [address] [place] [address] [facility] 200 [facility] (ABNORMAL) Vitamin B12 Assay (02/01/2021 5:21 AM COUNSELING PROGRAM LEADER) Analysis Performed At Patho logist Time Signature Vitamin B12 >1400 (H) 180 - 914 02/02/2021 DTL Assay, S ng/L 7:10 AM COUNSELING PROGRAM LEADER Comment: ----ADDITIONAL INFORMATION---- In patients being evaluated for vitamin B12 deficiency who have intrinsic factor blocking antibodie s (IFBA), false elevations of B12 may occur due to IFBA interference thus potentially obscuring a physiological de ficiency of B12. If observed B12 concentrations are disco rdant with clinical presentation, measurement of methylmalon ic acid (MMA) should be considered. Specimen Anatomical Collection Method Collection Time Receive d Time (Source) Location / / Volume Laterality Blood (Blood, 02/01/2021 5:21 AM 02/02/20 5:52 Venous) COUNSELING PROGRAM LEADER AM COUNSELING PROGRAM LEADER Gerald England M.D. LAB BLOOD ADD-ON Performing Organization Address City/State/ZIP Code Phon e Number [facility] - [address] [place], [place] [address] [facility] [place] [address] [facility] [address] [facility] Folate (02/01/2021 5:21 AM COUNSELING PROGRAM LEADER) P athologist Signature Folate, S 17.9 >=4.0 mcg/L 02/02/2021 7:09 DTL AM COUNSELING PROGRAM LEADER Specimen Anatomical Collection Method Collection Time Receive d Time (Source) Location / / Volume Laterality Blood (Blood, 02/01/2021 5:21 AM 02/02/20 5:52 Venous) COUNSELING PROGRAM LEADER AM COUNSELING PROGRAM LEADER Gerald England M.D. LAB BLOOD ADD-ON Performing Organization Address City/State/[facility] Phon e Number [facility] - [address] [place], [place] [address] [place] [address] [facility] 200 [facility] Lipid Panel (02/01/2021 5:21 AM COUNSELING PROGRAM LEADER) athologist Signature Cholesterol, 157 mg/dL 02/01/2021 DTL Total 6:27 AM COUNSELING PROGRAM LEADER Comment: ----REFERENCE VALUE---- Desirable: < 200 Borderline high: 200 - 239 High: > or = 240 Triglycerides 107 mg/dL 02/01/2021 6:27 AM COUNSELING PROGRAM LEADER DTL Comment: ----REFERENCE VALUE---- Normal: <150 Borderline high: 150-199 High: 200-499 Very high: > or =500 Cholesterol, HDL, S 88 >=50 mg/dL 02/01/2021 6:27 AM COUNSELING PROGRAM LEADER DTL Calculated LDL 48 mg/dL 02/01/2021 6:27 AM COUNSELING PROGRAM LEADER DT L Comment: ----REFERENCE VALUE---- Desirable: <100 Above Desirable: 100-129 Borderline high: 130-159 High: 160-189 Very high: > or =190 Cholesterol, Non-HDL, Calculated 69 mg/dL 021 6:27 AM COUNSELING PROGRAM LEADER DTL Comment: ----REFERENCE VALUE---- Desirable: <130 Above Desirable: 130-159 Borderline high: 160-189 High: 190-219 Very high: > or =220 Specimen Anatomical Collection Method Collection Time Receive d Time (Source) Location / / Volume Laterality Blood (Blood, 02/01/2021 5:21 AM 02/02/20 5:52 Venous) COUNSELING PROGRAM LEADER AM COUNSELING PROGRAM LEADER Gerald England M.D. LAB BLOOD ADD-ON Performing Organization Address City/State/[facility] Code Phon e Number [facility] - [address] [place], [place] [address] [facility] [place] [address] ECG 12 Lead (01/31/2021 11:35 PM COUNSELING PROGRAM LEADER) P athologist Signature Ventricular Rate 60 BPM MUSE ECG/Min AK Interval 170 ms MUSE QRSD Interval 88 ms MUSE QT Interval 434 ms MUSE QTC Interval 434 ms MUSE P Stow 31 degrees MUSE R Stow -16 degrees MUSE T Wave Stow 3 degrees MUSE Specimen Anatomical Collection Method Collection Time Receive d Time (Source) Location / / Volume Laterality 01/31/2021 11:35 02/01/2021 6:10 PM COUNSELING PROGRAM LEADER AM COUNSELING PROGRAM LEADER Impressions MUSE - 02/01/2021 6:10 AM COUNSELING PROGRAM LEADER Normal sinus rhythm Minimal voltage criteria for LVH, may be normal variant Nonspecific ST abnormality When compared with ECG of 30-MAR-2019 09 :30, No significant change was found Reviewed by SANDRINE Estes Narrative This result has an attachment that is no t available. Procedure Note Espinoza Carbajal M.D. - 02/01/2021Format ting of this note might be different from the original. IMPRESSION: Normal sinus rhythm Minimal voltage criteria for LVH, may be normal variant Nonspecific ST abnormality When compared with ECG of 30-MAR-2019 09 :30, No significant change was found Reviewed by SANDRINE Estes Gerald England M.D. ECG ORDERABLES Performing Organization Address City/State/ZIP Code Phon e Number MUSE MUSE NA SARS Coronavirus 2, RNA, Rapid POC, V Asymptomatic (01/31/2021 10:32 PM COUNSELING PROGRAM LEADER) [facility] Method Time Signature SARS Undetected Undetected 01/31/2021 DTLR Coronavirus-2 10:52 PM COUNSELING PROGRAM LEADER , RNA, Rapid POC, V Comment: Negative for SARS-CoV-2. The Expert360 COVID-19 test is a molecular shahzad t for SARS-CoV-2, the virus that causes COVID- 19. A Negative result means that the Expert360 COV ID-19 test did not detect SARS-CoV-2 virus in your sample. Cue COVID-19 test uses the Nimble nitoring System. This test has received Emergency Use Authorization (EUA) by the U.S. Food and Drug Administration (FDA) and is used per man ufacturer instructions. Performance characteristic s were verified by [facility] in a manner consistent with CLIA requirements. Fact sheets for this Emerg ency Use Authorization (EUA) can be found at the following links: Providers: [email or web address]/prov [email or web address].pdf Patients: [email or web address].pdf SARS Coronavirus 2, Source Nasopharynx DEFAULT 01/31/2021 10:52 PM COUNSELING PROGRAM LEADER DTLR Specimen Anatomical Collection Method Collection Time Receive d Time (Source) Location / / Volume Laterality Varies 01/31/2021 10:32 01/31/2021 (Nasopharynx) PM COUNSELING PROGRAM LEADER 10:32 PM COUNSELING PROGRAM LEADER Nan Rios M.D. LAB MICROBIOLOGY - GENERAL O RDERABLES Performing Organization Address City/[facility]/ZIP [facility] [place] Phon e Number PERFORMING LABS, REF [place] [address] INTERFACE Ref Interface [address] [facility] DTLR Performing Labs, [place] [address] Interface 200 [facility] Electrolyte (Chem 4) Panel (01/31/2021 9:44 PM COUNSELING PROGRAM LEADER) P athologist Signature Potassium, P 4.0 3.6 - 5.2 01/31/2021 STMA mmol/L 10:06 PM COUNSELING PROGRAM LEADER Sodium, P 137 135 - 145 01/31/2021 STMA mmol/L 10:06 PM COUNSELING PROGRAM LEADER Chloride, P 104 98 - 107 01/31/2021 STMA mmol/L 10:06 PM COUNSELING PROGRAM LEADER Bicarbonate, P 24 22 - 29 01/31/2021 STMA mmol/L 10:06 PM COUNSELING PROGRAM LEADER Anion Gap, P 9 7 - 15 01/31/2021 STMA 10:06 PM COUNSELING PROGRAM LEADER Specimen Anatomical Collection Method Collection Time Receive d Time (Source) Location / / Volume Laterality Blood (Blood, 01/31/2021 9:44 PM 02/01/20 9:56 Venous) COUNSELING PROGRAM LEADER PM COUNSELING PROGRAM LEADER Gerald England M.D. LAB BLOOD ADD-ON Performing Organization Address City/[facility]/ZIP Code Phon e Number [facility] - [address] [place], [place] [address] [facility] [place] [address] Laboratories-[facility] [address] (ABNORMAL) Prothrombin Time (PT) (01/31/2021 9:44 PM COUNSELING PROGRAM LEADER) [facility] Method Time Signature Prothrombin 15.5 (H) 9.4 - 12.5 01/31/2021 DTL Time, P sec 10:27 PM COUNSELING PROGRAM LEADER INR 1.4 0.9 - 1.1 01/31/2021 DTL 10:27 PM COUNSELING PROGRAM LEADER Comment: ----ADDITIONAL INFORMATION---- Standard intensity warfarin therapeutic range: 2.0 to 3.0 ?? High intensity warfarin therapeutic rang e: 2.5 to 3.5 Specimen Anatomical Collection Method Collection Time Receive d Time (Source) Location / / Volume Laterality Blood (Blood, 01/31/2021 9:44 PM 02/01/20 Venous) COUNSELING PROGRAM LEADER 10:06 PM COUNSELING PROGRAM LEADER Gerald England M.D. LAB BLOOD ADD-ON Performing Organization Address City/[facility] Code Phon e Number [facility] - [address] [place] [address] Laboratories-[address] APTT (Activated Partial Thromboplastin Time) (01/31/2021 9:44 PM COUNSELING PROGRAM LEADER) P athologist Signature Activated 35 25 - 37 sec 01/31/2021 DTL Partial 10:27 PM COUNSELING PROGRAM LEADER Thrombopl Time, P Specimen Anatomical Collection Method Collection Time Receive d Time (Source) Location / / Volume Laterality Blood (Blood, 01/31/2021 9:44 PM 02/01/20 Venous) COUNSELING PROGRAM LEADER 10:06 PM COUNSELING PROGRAM LEADER Gerald England M.D. LAB BLOOD ADD-ON Performing Organization Address [facility] Phon e Number [facility] - [address] (ABNORMAL) Hemoglobin A1c (01/31/2021 9:44 PM COUNSELING PROGRAM LEADER) P athologist Signature Hemoglobin A1c, 6.1 (H) 4.0 - 5.6 01/31/2021 DTL B % 10:18 PM COUNSELING PROGRAM LEADER Comment: Hemoglobin A1c values of 5.7-6.4 percent indicate an increased risk for developing diabetes m ellitus. In diabetic patients, HbA1c goals should be discussed with healthcare provider. Specimen Anatomical Collection Method Collection Time Receive d Time (Source) Location / / Volume Laterality Blood (Blood, 01/31/2021 9:44 PM 02/01/20 21 Venous) COUNSELING PROGRAM LEADER 10:06 PM COUNSELING PROGRAM LEADER Gerald England M.D. LAB BLOOD ADD-ON Performing Organization Address City/[facility]/ZIP Code Phon e Number [facility] - [address] [place], [place] [address] [facility] [place] [address] [facility] [address] [facility] (ABNORMAL) CBC with Differential, Blood (01/31/2021 9:44 PM COUNSELING PROGRAM LEADER) [facility] Method Time Signature Hemoglobin 11.1 (L) 11.6 - 01/31/2021 DTL 15.0 g/dL 10:12 PM COUNSELING PROGRAM LEADER Hematocrit 34.9 (L) 35.5 - 01/31/2021 DTL 44.9 % 10:12 PM COUNSELING PROGRAM LEADER Erythrocytes 3.84 (L) 3.92 - 01/31/2021 DTL 5.13 10:12 PM COUNSELING PROGRAM LEADER x10(12)/L MCV 90.9 78.2 - 01/31/2021 DTL 97.9 fL 10:12 PM COUNSELING PROGRAM LEADER RBC Distrib Width 14.4 12.2 - 01/31/2021 DTL 16.1 % 10:12 PM COUNSELING PROGRAM LEADER Platelet Count 326 157 - 371 01/31/2021 DTL x10(9)/L 10:12 PM COUNSELING PROGRAM LEADER Leukocytes 6.8 3.4 - 9.6 01/31/2021 DTL x10(9)/L 10:12 PM COUNSELING PROGRAM LEADER Neutrophils 4.91 1.56 - 01/31/2021 DTL 6.45 10:12 PM COUNSELING PROGRAM LEADER x10(9)/L Lymphocytes 1.52 0.95 - 01/31/2021 DTL 3.07 10:12 PM COUNSELING PROGRAM LEADER x10(9)/L Monocytes 0.34 0.26 - 01/31/2021 DTL 0.81 10:12 PM COUNSELING PROGRAM LEADER x10(9)/L Eosinophils 0.03 0.03 - 01/31/2021 DTL 0.48 10:12 PM COUNSELING PROGRAM LEADER x10(9)/L Basophils 0.03 0.01 - 01/31/2021 DTL 0.08 10:12 PM COUNSELING PROGRAM LEADER x10(9)/L Specimen Anatomical Collection Method Collection Time Receive d Time (Source) Location / / Volume Laterality Blood (Blood, 01/31/2021 9:44 PM 02/01/20 21 Venous) COUNSELING PROGRAM LEADER 10:06 PM COUNSELING PROGRAM LEADER Gerald England M.D. LAB BLOOD ADD-ON Performing Organization Address City/State/ZIP Code Phon e Number [facility] - [address] [place], [place] [address] [place] [address] S-TSH (Thyroid-Stimulating Hormone - Sensitive) (01/31/2021 9:44 PM COUNSELING PROGRAM LEADER) P athologist Signature TSH, Sensitive 0.3 0.3 - 4.2 01/31/2021 DTL mIU/L 10:59 PM COUNSELING PROGRAM LEADER Specimen Anatomical Collection Method Collection Time Receive d Time (Source) Location / / Volume Laterality Blood (Blood, 01/31/2021 9:44 PM 02/01/20 Venous) COUNSELING PROGRAM LEADER 10:06 PM COUNSELING PROGRAM LEADER Gerald England M.D. LAB BLOOD ADD-ON Performing Organization Address City/[facility]/ZIP Code Phon e Number [facility] - [address] [place], [place] [address] [place] [address] AST (Aspartate Aminotransferase) (01/31/2021 9:44 PM COUNSELING PROGRAM LEADER) [facility] Method Time Signature Aspartate 23 8 - 43 01/31/2021 DTL Aminotransferase U/L 10:59 PM COUNSELING PROGRAM LEADER (AST), S Specimen Anatomical Collection Method Collection Time Receive d Time (Source) Location / / Volume Laterality Blood (Blood, 01/31/2021 9:44 PM 02/01/20 Venous) COUNSELING PROGRAM LEADER 10:06 PM COUNSELING PROGRAM LEADER Gerald England M.D. LAB BLOOD ADD-ON Performing Organization Address City/[facility]/ZIP Code Phon e Number [facility] - [address] [place], [place] [address] ALT (Alanine Aminotransferase) (01/31/2021 9:44 PM COUNSELING PROGRAM LEADER) [facility] Invest[employer]Note Method Time Signature Alanine 15 7 - 45 01/31/2021 DTL Aminotransferase U/L 10:59 PM COUNSELING PROGRAM LEADER (ALT), S Specimen Anatomical Collection Method Collection Time Receive d Time (Source) Location / / Volume Laterality Blood (Blood, 01/31/2021 9:44 PM 02/01/20 21 Venous) COUNSELING PROGRAM LEADER 10:06 PM COUNSELING PROGRAM LEADER Gerald England M.D. LAB BLOOD ADD-ON Performing Organization Address City/State/ZIP Code Phon e Number [facility] - [address] [place], [place] [address] [facility] [place] [address] Laboratories-[facility] [address] documented in this encounter Visit Diagnoses Diagnosis Stroke (HCC) Chronic Pain Syndrome Stroke Cerebrovascular Accident Personal History documented in this encounter Admitting Diagnoses Diagnosis Stroke (HCC) documented in this encounter Administered Medications Inactive Administered Medications - up to 3 most recent administrations Medication Order MAR Action Action Date Dose Rate Site acetaminophen tablet 1,000 mg Given 02/03/2021 6:56 AM COUNSELING PROGRAM LEADER 1,000 mg (TYLENOL) 1,000 mg, oral, Every 6 hours PRN, mild pain or score 1-3 of 10, moderate pain or score 4-6 of 10, headaches, Starting on 02/01/21 at 0210 Given 02/02/2021 2:36 PM COUNSELING PROGRAM LEADER 1,000 mg Given 02/02/2021 8:53 AM COUNSELING PROGRAM LEADER 1,000 mg albuterol 90 mcg/actuation inhaler 2 puf f Given 02/03/2021 4:29 AM COUNSELING PROGRAM LEADER 2 puffs 2 puff, inhalation, Every 6 hours PRN, wheezing, shortness of breath, Starting on 02/01/21 at 1115 apixaban tablet 5 mg (ELIQUIS) Given 02/03/2021 9:30 AM COUNSELING PROGRAM LEADER 5 mg 5 mg, oral, 2 times daily, First dose on 02/02/21 at 2100 Given 02/02/2021 8:09 PM COUNSELING PROGRAM LEADER 5 mg aspirin tablet 325 mg Given 02/02/2021 8:11 AM COUNSELING PROGRAM LEADER 325 mg 325 mg, oral, Daily, First dose on 02/01/21 at 1030 Given 02/01/2021 10:54 AM COUNSELING PROGRAM LEADER 325 mg atorvastatin tablet 40 mg (LIPITOR) Given 02/02/2021 8:09 PM COUNSELING PROGRAM LEADER 40 mg 40 mg, oral, Daily at bedtime, First dose on 02/02/[address] tablet 10 mg (DULCOLAX) 10 mg, oral, 2 times daily PRN, constipation, Starting on 01/31/21 at 2125, Suppository is the preference. Swallow w hole. Do NOT crush, chew, or split tablet. bisacodyL suppository 10 mg (DULCOLAX) 10 mg, rectal, 2 times daily PRN, constipation, Starti ng on 01/31/21 at 2125, Suppository is the preference. cholecalciferol (vitamin D3) tablet 25 m cg Given 02/03/2021 9:29 AM COUNSELING PROGRAM LEADER 25 mcg 25 mcg, oral, Daily, First dose on 02/01/21 at 0900, cholecalciferol (vitamin D3) orderable was interchanged for cholecalciferol (vitamin D3) tablet/capsule Given 02/02/2021 8:10 AM COUNSELING PROGRAM LEADER 25 mcg Given 02/01/2021 9:11 AM COUNSELING PROGRAM LEADER 25 mcg cyanocobalamin tablet 2,000 mcg (VITAMIN Given 02/03/2021 9: 28 AM COUNSELING PROGRAM LEADER 2,000 mcg B12) 2,000 mcg, oral, Daily, First dose on 02/01/21 at 0900 Given 02/02/2021 8:08 AM COUNSELING PROGRAM LEADER 2,000 mcg Given 02/01/2021 9:11 AM COUNSELING PROGRAM LEADER 2,000 mcg diazePAM tablet 10 mg (VALIUM) Given 02/03/2021 10:51 AM COUNSELING PROGRAM LEADER 10 mg 10 mg, oral, 2 times daily PRN, anxiety, Starting on 02/01/21 at 1016 Given 02/02/2021 10:24 PM COUNSELING PROGRAM LEADER 10 mg Given 02/02/2021 8:53 AM COUNSELING PROGRAM LEADER 10 mg docusate sodium 283 mg/5 mL enema 1 enem a (ENEMEEZ) 1 enema, rectal, 2 times daily PRN, cons tipation, Starting on 01/31/21 at 2125, If no bowel movement within 24 hours of starting bisac odyl FLUoxetine capsule 80 mg (PROzac) Given 02/03/2021 9:28 AM COUNSELING PROGRAM LEADER 80 mg 80 mg, oral, Daily, First dose on 02/01/21 at 0900, FLUoxetine orderable was interchanged for FLUoxetine tablet/capsule Given 02/02/2021 8:10 AM COUNSELING PROGRAM LEADER 80 mg Given 02/01/2021 9:10 AM COUNSELING PROGRAM LEADER 80 mg folic acid tablet 800 mcg Given 02/03/2021 9:29 AM COUNSELING PROGRAM LEADER 800 mcg 800 mcg, oral, Every morning, First dose on 02/01/21 at 0900 Given 02/02/2021 8:14 AM COUNSELING PROGRAM LEADER 800 mcg Given 02/01/2021 10:00 AM COUNSELING PROGRAM LEADER 800 mcg furosemide tablet 40 mg (LASIX) Given 02/03/2021 9:29 AM COUNSELING PROGRAM LEADER 40 mg 40 mg, oral, 2 times daily, First dose on Tue02/02/21 at 0900 Given 02/02/2021 6:25 PM COUNSELING PROGRAM LEADER 40 mg Given 02/02/2021 8:10 AM COUNSELING PROGRAM LEADER 40 mg gadobutrol injection 0.01-30 mL (GADAVIS T) Given 02/03/2021 12:35 PM COUNSELING PROGRAM LEADER 8 mL 0.01-30 mL, intravenous, Once in imaging, contrast, Starting on Tue02/03/21 at 1235, For 1 dose, Imaging Protocol Orders, Dose per Radiant Medication Guidelines heparin (porcine) Given 02/02/2021 6:29 AM COUNSELING PROGRAM LEADER 5,000 Units Left Lower Abdomen injection 5,000 Units 5,000 Units, subcutaneous, Every 8 hours scheduled, First dose on Tue02/01/21 at 0600 Given 02/01/2021 9:17 PM COUNSELING PROGRAM LEADER 5,000 Units Right Lower Abdomen Given 02/01/2021 1:56 PM COUNSELING PROGRAM LEADER 5,000 Units Right Lower Abdomen lamoTRIgine tablet 200 mg (LaMICtal) Given 02/03/2021 9:29 AM COUNSELING PROGRAM LEADER 200 mg 200 mg, oral, 2 times daily, First dose (after last modification) on 01/31/21 at 2245 Given 02/02/2021 8:09 PM COUNSELING PROGRAM LEADER 200 mg Given 02/02/2021 8:11 AM COUNSELING PROGRAM LEADER 200 mg lidocaine 5 % 1 patch Medication Applied 01/31/2021 10:44 PM 1 patch Upper Back (LIDODERM) COUNSELING PROGRAM LEADER 1 patch, transdermal, Administer over 12 Hours, Daily, First dose on 01/31/21 at 2200, Remove after 12 hours. lidocaine 5 % ointment 1 application Given 02/02/2021 2:33 A M COUNSELING PROGRAM LEADER 1 application (XYLOCAINE) 1 application, topical, 3 times daily PRN, mild pain or score 1-3 of 10, Starting on Tue02/01/21 at 1114, MAX of 20 g of ointment/day Given 02/01/2021 5:18 PM COUNSELING PROGRAM LEADER 1 application loratadine tablet 10 mg (CLARITIN) Given 02/03/2021 9:30 AM COUNSELING PROGRAM LEADER 10 mg 10 mg, oral, Daily, First dose on Tue02/01/21 at 0900, loratadine 10 mg oral daily was interchanged for cetirizine 5 mg oral twice daily Given 02/02/2021 8:11 AM COUNSELING PROGRAM LEADER 10 mg Given 02/01/2021 9:12 AM COUNSELING PROGRAM LEADER 10 mg magnesium oxide tablet 400 mg (MAG-OX) Given 02/02/2021 8:09 PM COUNSELING PROGRAM LEADER 400 mg 400 mg, oral, Daily at bedtime, First dose on Tue02/01/21 at 2100, magnesium oxide 400 mg daily was interchanged for magnesium gluconate 500 mg daily Given 02/01/2021 9:17 PM COUNSELING PROGRAM LEADER 400 mg meclizine tablet 25 mg (ANTIVERT) Given 02/02/2021 3:01 AM COUNSELING PROGRAM LEADER 25 mg 25 mg, oral, 3 times daily PRN, dizziness, Starting on Tue02/01/21 at 0211 Given 02/01/2021 9:19 AM COUNSELING PROGRAM LEADER 25 mg meclizine tablet 25 mg (ANTIVERT) Given 02/02/2021 8:09 PM COUNSELING PROGRAM LEADER 25 mg 25 mg, oral, 4 times daily PRN, dizziness, Starting on Tue02/02/21 at 1345 nicotine 10 mg inhaler 1 puff (NICOTROL) 1 puff, inhalation, As needed, smoking c essation, Starting on Tue02/03/21 at 1318, Inhale with continuous puffing over 20 m inutes; Initial 6 to 16 cartridges per day; MAX 16 cartridges per day. nicotine 14 mg/24 hr 1 Medication Applied 02/03/2021 9:27 AM 1 patch Left Shoulder patch (NICODERM CQ) COUNSELING PROGRAM LEADER 1 patch, transdermal, Administer over 24 Hours, Daily, First dose on Tue02/01/21 at 0900 Medication Applied 02/02/2021 8:14 AM COUNSELING PROGRAM LEADER 1 patch Right Arm Medication Applied 02/01/2021 9:13 AM COUNSELING PROGRAM LEADER 1 patch Left Shoulder nicotine 21 mg/24 hr 1 Medication Applied 02/03/2021 2:55 PM 1 patch Left Shoulder patch (NICODERM CQ) COUNSELING PROGRAM LEADER 1 patch, transdermal, Administer over 24 Hours, Daily, First dose on Tue02/03/21 at 1330 ondansetron ODT disintegrating tablet 4 mg Given 02/02/2021 10:2 4 PM COUNSELING PROGRAM LEADER 4 mg (ZOFRAN-ODT) 4 mg, oral, Every 8 hours PRN, nausea, Starting on 3/6/21 at 2228, When splitting ODT at bedside, handle with gloves and a pill splitter to prevent moisture contact. Given 02/02/2021 2:36 PM COUNSELING PROGRAM LEADER 4 mg Given 02/01/2021 1:12 AM COUNSELING PROGRAM LEADER 4 mg oxyCODONE IR tablet 10 mg (ROXICODONE) Given 02/03/2021 5:02 PM COUNSELING PROGRAM LEADER 10 mg 10 mg, oral, Every 6 hours PRN, moderate pain or score 4-6 of 10, Starting on 01/31/21 at 2229 Given 02/03/2021 2:42 AM COUNSELING PROGRAM LEADER 10 mg Given 02/02/2021 8:08 PM COUNSELING PROGRAM LEADER [address] tablet 40 mg (PROTONIX) Given 02/03/2021 4:58 PM COUNSELING PROGRAM LEADER 40 mg 40 mg, oral, 2 times daily before breakfast and dinner, First dose on 02/01/21 at 0700, pantoprazole 40 mg oral twice daily was interchanged for esomeprazole 20 or 40 mg oral twice daily Swallow whole. Do NOT crush, chew, or split tablet. Given 02/03/2021 6:56 AM COUNSELING PROGRAM LEADER 40 mg Given 02/02/2021 6:25 PM COUNSELING PROGRAM LEADER 40 mg pregabalin capsule 150 mg (LYRICA) Given 02/01/2021 9:12 AM COUNSELING PROGRAM LEADER 150 mg 150 mg, oral, Every morning, First dose on 02/01/21 at 0900 pregabalin capsule 300 mg (LYRICA) Given 01/31/2021 11:16 PM COUNSELING PROGRAM LEADER 300 mg 300 mg, oral, Every evening, First dose on 01/31/21 at 2300 pregabalin capsule 300 mg (LYRICA) Given 02/03/2021 9:28 AM COUNSELING PROGRAM LEADER 300 mg 300 mg, oral, Every morning, First dose (after last modification) on 02/02/21 at 0900 Given 02/02/2021 8:10 AM COUNSELING PROGRAM LEADER 300 mg pregabalin capsule 600 mg (LYRICA) Given 02/02/2021 8:09 PM COUNSELING PROGRAM LEADER 600 mg 600 mg, oral, Daily at bedtime, First dose (after last modification) on 02/01/21 at 2100 Given 02/01/2021 9:17 PM COUNSELING PROGRAM LEADER 600 mg promethazine injection 6.25 mg (PHENERGA N) Given 02/01/2021 12:47 PM COUNSELING PROGRAM LEADER 6.25 mg 6.25 mg, intravenous, Once, On 02/01/21 at 1030, For 1 dose QUEtiapine tablet 50 mg (SEROquel) Given 02/03/2021 12:39 AM COUNSELING PROGRAM LEADER 50 mg 50 mg, oral, Bedtime PRN, agitation/sleep, Starting on 02/01/21 at 1310 rOPINIRole tablet 2 mg (REQUIP) Given 02/03/2021 2:42 AM COUNSELING PROGRAM LEADER 2 mg 2 mg, oral, Daily PRN, restless legs, Starting on 01/31/21 at 2233 sennosides-docusate sodium 8.6-50 mg per Given 02/03/2021 9: 27 AM COUNSELING PROGRAM LEADER 2 tablets tablet 2 tablet (SENOKOT-S) 2 tablet, oral, Daily, First dose on 02/01/21 at 0900, While on opioids. Do not give if patient has diarrhea. sennosides-docusate sodium 8.6-50 mg per tablet 2 tablet (SENOKOT-S) 2 tablet, gastric tube, Daily, First dos e on 02/01/21 at 0900, While on opioids. Do not give if patient has diarrhea. zonisamide capsule 300 mg (ZONEGRAN) Given 02/03/2021 9:28 AM COUNSELING PROGRAM LEADER 300 mg 300 mg, oral, 2 times daily, First dose (after last modification) on 01/31/21 at 2245, Swallow whole. Do NOT crush, chew or open capsule. Given 02/02/2021 8:09 PM COUNSELING PROGRAM LEADER 300 mg Given 02/02/2021 8:53 AM COUNSELING PROGRAM LEADER 300 mg documented in this encounter Active and Recently Administered Medications Times are shown in COUNSELING PROGRAM LEADER. Scheduled Medication Order 02/01/2021 02/02/2021 02/03/2021 apixaban tablet 5 mg (ELIQUIS) 2008 (Given - Pro vider: Marlene Grover RRebekah.) 4132 (Given - Provider: Karma Cervantes R.N.) 5 mg, oral, 2 times daily, First dose on 02/02/21 at 2100 aspirin tablet 325 mg (CANCELED) 1054 (Given - Provide r: Valarie Grayson RBrittonN.) 0811 (Given - Provider: Leatha Vasquez R.N.) 325 mg, oral, Daily, First dose on 02/01/21 at 1030 atorvastatin tablet 40 mg (LIPITOR) 2008 (Given - Provider: Marlene Grover R.N.) 40 mg, oral, Daily at bedtime, First dose on 02/02/21 at 2100 cholecalciferol (vitamin D3) tablet 25 mcg 0911 (Given - Provider: Valarie Grayson R.N.) 0810 (Given - Provider: Leatha Vasquez R.N.) 0929 (Given - Provider: Karma Cervantes R.N.) 25 mcg, oral, Daily, First dose on Sun at 0900, cholecalciferol (vitamin D3) orderable was interchanged for cholecalciferol (vitamin D3) tablet/capsule cyanocobalamin tablet 2,000 mcg (VITAMIN B12) 0911 (Gi saeid - Provider: Valarie Grayson R.N.) 0808 (Given - Provider: Leatha Vasquez R.N.) 0928 (Given - Provider: Karma Cervantes R.N.) 2,000 mcg, oral, Daily, First dose on 02/01/21 at 0900 FLUoxetine capsule 80 mg (PROzac) 0910 (Given - Provid er: Valarie Grayson R.N.) 0810 (Given - Provider: Leatha Vasquez R.N.) 0928 (Given - Provider: Karma Cervantes R.N.) 80 mg, oral, Daily, First dose on 02/01/21 at 0900, FLUoxetine orderable was interchanged for FLUoxetine tablet/capsule folic acid tablet 800 mcg 1000 (Given - Provider: Valarie hager RBrittonNBritton) 0814 (Given - Provider: Leatha Vasquez R.N.) 0929 (Given - Provider: Karma Cervantes R.N.) 800 mcg, oral, Every morning, First dose on 02/01/21 at 0900 furosemide tablet 40 mg (LASIX) 0810 (Gi saeid - Provider: Leatha Vasquez R.N.)1825 (Given - Provider: Leatha Vasquez R.N.) 0929 (Given - Provider: Karma Cervantes R.N.)1658 (Not Given - Provider: Sofie Sutton R.N. - Reason: Patient/family refused) 40 mg, oral, 2 times daily, First dose on 02/02/21 at 0900 heparin (porcine) injection 5,000 Units (CANCELED) 055 0 (Given - Provider: Rica Jon R.N.)1356 (Given - Provider: Valarie Grayson R.N.)211 (Given - Provider: Mague Rudolph R.N.) 0629 (Given - Provider: Mague Rudolph R.N.) 5,000 Units, subcutaneous, Every 8 hours scheduled, First dose on 02/01/21 at 0600 lamoTRIgine tablet 200 mg (LaMICtal) 0910 (Given - Pro vider: Valarie Grayson R.N.)2116 (Given - Provider: Mague Rudolph R.N.) 08 (Given - Provider: Leatha Vasquez R.N.)2008 (Given - Provider: Marlene Grover R.N.) 0929 (Given - Provider: Karma Cervantes R.N.) 200 mg, oral, 2 times daily, First dose (after last modification) on 01/31/21 at 2245 loratadine tablet 10 mg (CLARITIN) 0912 (Given - Provi marquis: Valarie Grayson R.N.) 0811 (Given - Provider: Leatha Vasquez R.N.) 0930 (Given - Provider: Karma Cervantes R.N.) 10 mg, oral, Daily, First dose on 02/01/21 at 0900, loratadine 10 mg oral daily was interchanged for cetirizine 5 mg oral twice daily magnesium oxide tablet 400 mg (MAG-OX) 2116 (Given - P rovider: Mague Rudolph R.N.) 2008 (Given - Provider: Marlene Grover R.N.) 400 mg, oral, Daily at bedtime, First do se on 02/01/21 at 2100, magnesium oxide 400 mg daily was interchanged for magnesium gluconate 500 mg daily nicotine 14 mg/24 hr 1 patch (NICODERM CQ) (CANCELED) 0913 (Medication Applied - Provider: Valarie Grayson R.N.) 0808 (Medication Removed - Provider: Leatha Vasquez R.N.)0814 (Medication Applied - Provider: Leatha Vasquez R.N.) 0926 (Medication Removed - Provider: Mehdi Cervantes R.N.)0927 (Medication Applied - Provider: Karma Cervantes R.N.)1536 (Medication Removed - Provider: Sofie Sutton R.N. - Comment: Time automatically adjusted from order being discontinued) 1 patch, transdermal, Administer over 24 Hours, Daily, First dose on Tue02/01/21 at 0900 nicotine 21 mg/24 hr 1 patch (NICODERM CQ) 1455 (Medication Applied - Provider: Karma Cervantes R.N.)1720 (Due: Medication Removed - Provider: Discharge Provider, Automatic - Comment: Time automatically adjusted from order being discontinued) 1 patch, transdermal, Administer over 24 Hours, Daily, First dose on Tue02/03/[address] tablet 40 mg (PROTONIX) 0755 (Given - Provider: Valarie Grayson R.N.)1612 (Given - Provider: Valarie Grayson R.N.) 0629 (Given - Provider: Mague Rudolph R.N.)1825 (Given - Provider: Leatha Vasquez R.N.) 0656 (Given - Provider: Marlene Grover R.N.)1658 (Given - Provider: Sofie Sutton RBetsy) 40 mg, oral, 2 times daily before breakf ast and dinner, First dose on 02/01/21 at 0700, pantoprazole 40 mg oral twice daily was interchanged for esomeprazole 20 or 40 mg oral twice daily Swallow whole. Do NOT crush, chew, or split tablet. pregabalin capsule 150 mg (LYRICA) (CANCELED) 0912 (Gi saeid - Provider: Valarie Grayson R.N.) 150 mg, oral, Every morning, First dose on Tue02/01/21 at 0900 pregabalin capsule 300 mg (LYRICA)(Linked Group 1) 0810 (Given - Provider: Leatha Vasquez RBetsy) 0928 (Given - Provider: Karma Cervantes R.N.) 300 mg, oral, Every morning, First dose (after last modification) on 02/02/21 at 0900 pregabalin capsule 600 mg (LYRICA)(Linked Group 1) 211 7 (Given - Provider: Mauge Rudolph R.N.) 2008 (Given - Provider: Marlene Grover R.N.) 600 mg, oral, Daily at bedtime, First do se (after last modification) on 02/01/21 at 2100 promethazine injection 6.25 mg (PHENERGAN) (COMPLETED) 1247 (Given - Provider: Valarie Grayson R.N. - Comment: no IV access) 6.25 mg, intravenous, Once, On 02/01/21 at 1030, For 1 dose sennosides-docusate sodium 8.6-50 mg per tablet 2 tablet (SENOKOT-S)(Linked Group 2) 0911 (Not Given - Provider: Valarie suh RBetsy - Reason: Patient/family refused) 0815 (Not Given - Provider: Leatha almendarez RBetsy - Reason: Patient/family refused) 0927 (Given - Provider: Karma Cervantes R.N.) 2 tablet, oral, Daily, First dose on 02/01/21 at 0900, While on opioids. Do not give if patient has diarrhea. sennosides-docusate sodium 8.6-50 mg per tablet 2 tablet (SENOKOT-S)(Linked Group 2) 0911 (See Alternative - Provider: Christiano Santiago) 0815 (See Alternative - Provider: Leatha Vsaquez R.N.) 0927 (See Alternative - Provider: Karma Cervantes R.N.) 2 tablet, gastric tube, Daily, First dos e on 02/01/21 at 0900, While on opioids. Do not give if patient has diarrhea. zonisamide capsule 300 mg (ZONEGRAN) 0912 (Given - Pro vider: Valarie Grayson R.N.)2116 (Given - Provider: Mague Rudolph RBrittonNBritton) 0853 (Given - Provider: Leatha Vasquez RBrittonNBritton)2008 (Given - Provider: Marlene Grover RBetsy) 0928 (Given - Provider: Karma Cervantes R.N.) 300 mg, oral, 2 times daily, First dose (after last modification) on 01/31/21 at 2245, Swallow whole. Do NOT crush, chew or open capsule. PRN Medication Order 02/01/2021 02/02/2021 02/03/2021 acetaminophen tablet 1,000 mg (TYLENOL) 0755 (Given - Provider: Valarie Grayson RBrittonNBritton)1433 (Given - Provider: Tyler Guerra RBrittonNBritton) 0853 (Given - Provider: Leatha Vasquez R.N.)1436 (Given - Provider: Leatha Vasquez R.N.) 0656 (Given - Provider: Marlene Grover R.N.) 1,000 mg, oral, Every 6 hours PRN, mild pain or score 1-3 of 10, moderate pain or score 4-6 of 10, headaches, Starting on 02/01/21 at 0210 albuterol 90 mcg/actuation inhaler 2 puff 0429 (Given - Provider: Marlene Grover R.N.) 2 puff, inhalation, Every 6 hours PRN, w heezing, shortness of breath, Starting on 02/01/21 at 1115 albuterol nebulizer solution 2.5 mg (ACCUNEB) 2.5 mg, nebulization, Every 6 hours PRN, wheezing, shortness of breath, Starting 01/31/21 at 2219 benzonatate capsule 200 mg (TESSALON PERLES) 200 mg, oral, 3 times daily PRN, cough, Starting 01/31/21 at 2223, Swallow whole. Do NOT crush, chew or open capsule. bisacodyL DR tablet 10 mg (DULCOLAX)(Linked Group 3) 10 mg, oral, 2 times daily PRN, constipa tion, Starting on 01/31/21 at 2125, Suppository is the preference. Swallow whole. Do NOT crush, chew, or split tablet. bisacodyL suppository 10 mg (DULCOLAX)(Linked Group 3) 10 mg, rectal, 2 times daily PRN, consti pation, Starting on 01/31/21 at 2125, Suppository is the preference. diazePAM tablet 10 mg (VALIUM) 0853 (Giv en - Provider: Leatha Vasquez RBetsy)2224 (Given - Provider: Marlene Grover R.N.) 1051 (Given - Provider: Karma Cervantes R.N.) 10 mg, oral, 2 times daily PRN, anxiety, Starting on 02/01/21 at 1016 docusate sodium 283 mg/5 mL enema 1 enema (ENEMEEZ) 1 enema, rectal, 2 times daily PRN, cons tipation, Starting on 01/31/21 at 2125, If no bowel movement within 24 hours of starting bisacodyl gadobutrol injection 0.01-30 mL (GADAVIST) (COMPLETED) 1235 (Given - Provider: Belkis Gray(R)(MR)) 0.01-30 mL, intravenous, Once in imaging , contrast, Starting on 02/03/21 at 1235, For 1 dose, Imaging Protocol Orders, Dose per Radiant Medication Guidelines lidocaine 5 % ointment 1 application (XYLOCAINE) 1718 (Given - Provider: Valarie Grayosn R.N.) 0233 (Given - Provider: Mague Rudolph R.N.) 1 application, topical, 3 times daily AK N, mild pain or score 1-3 of 10, Starting on 02/01/21 at 1114, MAX of 20 g of ointment/day meclizine tablet 25 mg (ANTIVERT) (CANCELED) 0919 (Giv en - Provider: Valarie Grayson R.N.) 0301 (Given - Provider: Mague Rudolph R.N.) 25 mg, oral, 3 times daily PRN, dizziness, Starting on Sun 1 at 0211 meclizine tablet 25 mg (ANTIVERT) 2008 ( Given - Provider: Marlene Grover R.N.) 25 mg, oral, 4 times daily PRN, dizziness, Starting on Mon 1 at 1345 nicotine 10 mg inhaler 1 puff (NICOTROL) 1 puff, inhalation, As needed, smoking c essation, Starting on Tu02/03/21 at 1318, Inhale with continuous puffing over 20 minutes; Initial 6 to 16 cartridges per day; MAX 16 cartridges per day. ondansetron ODT disintegrating tablet 4 mg (ZOFRAN-ODT ) 0112 (Given - Provider: Rica oJn R.N.) 1436 (Given - Provider: Leatha chavez R.N.)2224 (Given - Provider: Marlene Grover R.N.) 4 mg, oral, Every 8 hours PRN, nausea, S tarting on 01/31/21 at 2228, When splitting ODT at bedside, handle with gloves and a pill splitter to prevent moisture contact. oxyCODONE IR tablet 10 mg (ROXICODONE) 0919 (Given - P rovider: Valarie Grayson, R.N.)1612 (Given - Provider: Valarie Grayson R.N.) 0232 (Given - Provider: Mague Rudolph R.N.)1353 (Given - Provider: Leatha Vasquez R.N.)2008 (Given - Provider: Marlene Grover R.N.) 0242 (Given - Provider: Marlene Grover R.N.)1702 (Given - Provider: Sofie Sutton R.N.) 10 mg, oral, Every 6 hours PRN, moderate pain or score 4-6 of 10, Starting on 01/31/21 at 2229 polyethylene glycol powder packet 17 g (MIRALAX) 17 g, oral, Bedtime PRN, constipation, S tarting 01/31/21 at 2229, 17 g = 1 heaping Tablespoon. Dissolve in 240 mLs (8 ounces) of water prior to giving. Avoid mixing with starch-based thickened liquids. QUEtiapine tablet 50 mg (SEROquel) 0039 (Given - Provider: Marlene Grover R.NBritton) 50 mg, oral, Bedtime PRN, agitation/sleep, Starting on Sun 1 at 1310 rOPINIRole tablet 2 mg (REQUIP) 0242 (Given - Provider: Marlene Grover R.N.) 2 mg, oral, Daily PRN, restless legs, Starting on 01/31/21 at 2233 tiZANidine tablet 4 mg (ZANAFLEX) 0210 (Held by provid er - Provider: Marbella Cutler M.D. - Comment: Sedation) 1925 (Unheld by prov ider - Provider: Discharge Provider, Automatic) 4 mg, oral, Every 8 hours PRN, muscle spasms, Starting Sat 1 at 2231 Linked Groups Order Group 1: pregabalin capsule 300 mg (LYRICA)Jump to med 300 mg, oral, Every morning, First dose (after last modification) on 02/02/21 at 0900 And pregabalin capsule 600 mg (LYRICA)Jump to med 600 mg, oral, Daily at bedtime, First do se (after last modification) on 02/01/21 at 2100 Group 2: sennosides-docusate sodium 8.6-50 mg per tablet 2 tablet (SENOKOT-S)Jump to med 2 tablet, oral, Daily, First dose on 02/01/21 at 0900
While on opioids. Do not give if patient has diarrhea.
Or sennosides-docusate sodium 8.6-50 mg per tablet 2 tablet (SENOKOT-S)Jump to med 2 tablet, gastric tube, Daily, First dos e on 02/01/21 at 0900
While on opioids. Do not give if patient has diarrhea.
Group 3: bisacodyL DR tablet 10 mg (DULCOLAX)Jump to med 10 mg, oral, 2 times daily PRN, constipa tion, Starting on 01/31/21 at 2125
Suppository is the preference. Swallow whole. Do NOT crush, chew, or split tablet.
Or bisacodyL suppository 10 mg (DULCOLAX)Jump to med 10 mg, rectal, 2 times daily PRN, consti pation, Starting on 01/31/21 at 2125
Suppository is the preference.
documented in this encounter Additional Health Concerns Infection Onset Date Last Indicated Resolved Time COVID19 Pending 01/31/2021 01/31/2021 01/31/2021 10:53 PM COUNSELING PROGRAM LEADER Assessment Noted Time PHQ-9 Depression Total Score: 23 02/02/2021 11:[address] documented as of this encounter
--- OUTSIDE RECORDS SUMMARY | 2022-07-06 14:54 | XMS_ITS | Encounter Summary ---
:1965 Author Organization [facility] Address [address] [place] [id number] Care Team Providers Name Role Phone Unavailable Primary Care Provider Unavailable Reason for Visit Reason Comments Michel Encounter Details Date Type Department Care Team Description 09/04/2020 Clinical Communication Department of Robert Diehl [id number] [place], [place] [address] [place] [address] [address] [place] [id number] [phone] Social History Tobacco Use Types Packs/Day Years [...] you attend hinduism or Patient refused 2021 tenriism services? Do [...] Telephone Encounter - Robert Diehl M.D. - 09/10/2020 4:10 PM CDT Thank you Allyssa! Telephone Encounter - Allyssa Amaya - 09/05/2020 3:[address] Diehl, outside images have arrived. Just an FYI - not sure if you intend to wait to address at patient's upcoming appt on 09/15, etc. Thank you. Telephone Encounter - Allyssa Amaya - 09/05/2020 11:46 AM CDT Fax received w/the results of the MRI head MRA w/o dated 09/03/2020. Per our original request, we didlet them know that we needed the images sent to our attention as well. I have reached out to the facility asking them to be sure that the images are sent to Dr. Diehl's attention. Report scanned into the chart. documented in this encounter Plan of Treatment Not on filedocumented as of this encounter Visit Diagnoses Not on filedocumented in this encounter Additional Health Concerns Assessment Noted Time PHQ-9 Depression Total Score: 5 04/05/2019 8:00 AM CDT documented as of this encounter
--- OUTSIDE RECORDS SUMMARY | 2022-07-06 14:54 | XMS_ITS | Encounter Summary ---
:1965 Author Organization [facility] Address [address] [place] [address] Care Team Providers Name Role Phone Unavailable Primary Care Provider Unavailable Reason for Referral MRI/CAT/PET Scan (Routine) - Closed Specialty Diagnoses / Procedures Referred By Contact Refer red To Contact Radiology Diagnoses Robert Akhtar M.D. [facility] Procedures CT Head Neck Angiogram with IV Contrast [address] [place] [address] Referral ID Status Reason Start Date Expiration Date Visits Requ ested Visits Authorized [id number] Closed 12/30/2020 12/30/2021 1 1 KLER MRI/CAT/PET Scan (Routine) - Closed Specialty Diagnoses / Procedures Referred By Contact Refer red To Contact Radiology Diagnoses Stroke Cerebrovascular Accident Personal History Robert Diehl M.D. [facility] Procedures CT Head without IV Contrast [address] [place] [address] Referral ID Status Reason Start Date Expiration Date Visits Requ ested Visits Authorized [id number] Closed 12/30/2020 12/30/2021 1 1 KLER Reason for Visit MRI/CAT/PET Scan (Routine) - Closed Specialty Diagnoses / Procedures Referred By Contact Refer red To Contact Radiology Diagnoses Ataxia Robert Diehl M.D. [facility] Procedures CT Head Neck Angiogram with IV Contrast [address] [place] [address] Referral ID Status Reason Start Date Expiration Date Visits Requ ested Visits Authorized [id number] Closed 12/30/2020 12/30/2021 1 1 Encounter Details Date Type Department Care Team Description 12/31/2020 Hospital Encounter Department of Robert Deihl Stroke Cerebrovascular Accident Personal History; Radiology in [place] Ataxia [place], [facility] [address] [place], [place] [address] [facility] [address] [place], [place] [phone] (Work) [phone] Social History Tobacco Use Types Packs/Day Years [...] you attend hoahaoism or Patient refused 2021 jehovah's witness services? [...] End Date albuterol (PROVENTIL Inhale 2 puffs 0 HFA,VENTOLIN HFA) 90 every 6 (six) hours mcg/actuation inhaler as needed for wheezing or shortness of breath. benzonatate (TESSALON Take 100 mg by 6 03/19/2019 PERLES) 100 mg capsule mouth 3 (three) times a day as needed for cough. cetirizine (ZyrTEC) 10 mg Take 10 mg by mouth 0 tablet 2 (two) times a day. cholecalciferol (VITAMIN Take 125 mcg by 0 D3) 125 mcg (5,000 Unit) mouth every tablet morning. diazePAM (VALIUM) 10 mg Take 10 mg [...] 40 mg by mouth 0 tablet daily. lamoTRIgine (LaMICtal) 200 Take 200 mg by 3 02/08 mg tablet mouth 2 (two) times a day. MAG-G 27 mg magnesium (500 Take 1 tablet by 3 mg) tablet mouth at bedtime. ondansetron ODT Take 1 tablet by 0 01/16/2010 (ZOFRAN-ODT) 8 mg mouth 3 (three) disintegrating tablet times a day as needed for nausea. polyethylene glycol Take 17 g by mouth 0 04/11/20 17 (MIRALAX) 17 gram/dose as needed for oral powder constipation. pregabalin (LYRICA) 300 mg Take 600 mg by 0 09/18 capsule mouth 2 (two) times a day. QUEtiapine (SEROquel) 50 Take 50 mg by mouth 0 mg tablet at bedtime. tiZANidine (ZANAFLEX) 4 mg Take 4-8 mg by 1 03/27 tablet mouth every 8 (eight) hours as needed for muscle spasms. Muscle spasms valACYclovir (VALTREX) 500 Take 500 mg by 0 02/22 mg tablet mouth daily. zonisamide (ZONEGRAN) 100 Take 300 mg by 8 2018 mg capsule mouth 2 (two) times a day. sodium chloride-sodium Administer 1 3 each 6 01/08/2020 01/07/2021 bicarbonate (NEILMED SINUS application into RINSE) nasal rinse each nostril as needed for congestion. albuterol (ACCUNEB) 2.5 mg Inhale 1 vial every 0 02/02/2021 /3 mL nebulizer solution 6 (six) hours as needed for shortness of breath. alum-mag hydroxide-simeth Take 30 mL by mouth 0 0 01/16/2010 02/02/2021 (MAALOX ADVANCED) every 4 (four) 200-200-20 mg/5 mL hours as needed for suspension indigestion or heartburn. ARTHRITIS PAIN RELIEF, TAKE TWO TABLETS 6 019 01/01/2022 ACETAM, 650 mg ER tablet (1300MG) BY MOUTH EVERY EIGHT HOURS aspirin [address] tablet 81 mg daily. Last 3 10/3102/03/2021 taken 11/28/18 atorvastatin (LIPITOR) 40 Take 1 tablet (40 30 tablet 11 02/201902/17/2021 mg tablet mg total) by mouth at bedtime. biotin 5 [...] 02/02/2021 (MIGRANAL) 0.5 mg/pump into each nostril act. (4 mg/mL) nasal spray as directed. 1 spray into each nostril as needed; may repeat every 15 minutes, max dose of 6 sprays/day; 8 sprays/week diphenhydrAMINE (BENADRYL) Take 25-50 mg by 0 02/02/2021 25 mg capsule mouth at bedtime as needed for sleep. sleep doxycycline hyclate 0 07/31/202002/02 (VIBRAMYCIN) 100 mg capsule estradiol (VIVELLE-DOT) APPLY 1 PATCH TWICE 11 10/201902/02/2021 0.1 mg/24 hr patch WEEKLY on and Tuesday fluticasone propionate Administer 2 sprays 0 04/2802/02/2021 (FLONASE) 50 mcg/actuation into affected nasal spray nostril(s) at bedtime. fluticasone propionate Administer 2 sprays 64 g 11 12/2902/02/2021 (FLONASE) 50 mcg/actuation into each nostril nasal spray at bedtime. SENSIMIST folic acid (FOLVITE) 800 Take 800 mcg by 0 201802/02/2021 mcg tablet mouth every morning. lidocaine (LIDODERM) 5 % Apply 1 patch to 0 01/1902/02/2021 painful area of skin for up to 12 hours within a 24-hour period as needed for pain metoclopramide (REGLAN) 10 Take 10 mg by mouth 11 03/23/2019 02/02/2021 mg tablet 3 (three) times a day [...] morning. potassium chloride Take 10 mEq by 0 (KLOR-CON M) 10 mEq ER mouth 2 (two) times tablet a day with meals. pregabalin (LYRICA) 150 mg Take 300 mg by 0 11/0402/02/2021 capsule mouth 2 (two) times a day. 1 cap in the morning, 2 caps at night. promethazine (PHENERGAN) Take 25 mg by mouth 0 02/02/2021 25 mg tablet every 6 (six) hours as needed for nausea. Refresh Tears 0.5 % 0 12/03/201902/02 ophthalmic solution RESTASIS 0.05 % ophthalmic Administer 1 drop 0 02/02/2021 emulsion into both eyes 2 (two) times a day. rOPINIRole (REQUIP) 2 mg 2 mg daily as 0 11/13/2002/02/2021 tablet needed. SPIRIVA RESPIMAT 2.5 Inhale 2 puffs 0 01/09/2019 02/02/2021 mcg/actuation inhaler every morning. UNABLE TO FIND Take 1 each by 0 2020 mouth as needed. Med Name: Medical Marijuana Capsule documented as of this encounter Miscellaneous Notes Result Encounter Note - Robert Diehl M.D. - 12/31/2020 5:17 PM SHACKLER I called and discussed the results with [...] by: Robert Diehl M.D. 12/31/20 5:16 PM SHACKLER Stroke Cerebrovascular Accident Personal History Plan: CT Head without IV Contrast, CT Head without IV Contrast Ataxia Plan: CT Head Neck Angiogram with IV Contrast, CT Head Neck Angiogram with IV Contrast KLER documented in this encounter Plan of Treatment Not on filedocumented as of this encounter Procedures Procedure Name Priority Date/Time Associated Diagnosis Comme nts CT HEAD WITHOUT RAD - Routine 12/31/2020 3:34 Stroke Results for IV CONTRAST (most inpatients PM SHACKLER Cerebrovascular this pro cedure and all Accident Personal are in the outpatients) History results section. CT HEAD NECK RAD - Routine 12/31/2020 3:34 Ataxia Results for ANGIOGRAM WITH (most inpatients PM SHACKLER this proc edure IV CONTRAST and all are in the outpatients) results section. documented in this encounter Results CT Head Neck Angiogram with IV Contrast (12/31/2020 3:34 PM SHACKLER) Anatomical Region Laterality Modality Head and Neck, Neuroradiology RST LOS, N/A C omputed Tomography, Computed Neuroradiology ARZ LOS, Neuroradiology T omography FLA LOS Specimen (Source) Anatomical Collection Method Collection Time Re ceived Time Location / / Volume Laterality 12/31/2020 3:49 PM SHACKLER Impressions 12/31/2020 4:54 PM SHACKLER 1. Evolving right cerebellar infarct with decreased [...] oid ICA aneurysms. Narrative 12/31/2020 4:54 PM SHACKLER EXAM: CT HEAD WITHOUT IV CONTRAST, CT [...] mid thoracic spine. Findings discussed with ordering physicDr. Fazal crandall ([id number]) at 4:54 PM on 12/31/2020. Procedure Note [...] spine. Findings discussed with ordering physici anDr. Diehl ([id number]) at 4:54 PM on 12/31/2020. IMPRESSION: 1. [...] Head without IV Contrast (12/31/2020 3:34 PM SHACKLER) Anatomical Region Laterality Modality Head, Neuroradiology RST LOS, N/A Computed T omography, Computed Neuroradiology ARZ LOS, Neuroradiology T omography FLA LOS Specimen (Source) Anatomical Collection Method Collection Time Re ceived Time Location / / Volume Laterality 12/31/2020 3:49 PM SHACKLER Impressions 12/31/2020 4:54 PM SHACKLER 1. Evolving right cerebellar infarct with decreased [...] oid ICA aneurysms. Narrative 12/31/2020 4:54 PM SHACKLER EXAM: CT HEAD WITHOUT IV CONTRAST, CT [...] mid thoracic spine. Findings discussed with ordering physicDr. Fazal crandall ([phone]) at 4:54 PM on 12/31/2020. Procedure Note [...] discussed with ordering physici Dr. Fazal abbasi ([phone]) at 4:54 PM on 12/31/2020. IMPRESSION: 1. [...] Diagnoses Diagnosis Stroke Cerebrovascular Accident Personal History Ataxia documented in this encounter Administered Medications Inactive Administered Medications - up to 3 most recent administrations Medication Order MAR Action Action Date Dose Rate Site iohexoL 350 mg iodine/mL solution Given 12/31/2020 3:34 PM SHACKLER 1 00 mL 1-200 mL (OMNIPAQUE) 1-200 mL, intravenous, Once in imaging, contrast, Starting on Tue12/31/20 at 1411, For 1 dose, Imaging Protocol Orders, Dose per Radiant Medication Guidelines sodium chloride (PF) 0.9 % injection 1-1 00 mL Given 12/31/2020 3:34 PM SHACKLER 35 mL 1-100 mL, intravenous, Once, On Tue12/31/20 at 1415, For 1 dose, Imaging Protocol Orders documented in this encounter Additional Health Concerns Assessment Noted Time PHQ-9 Depression Total Score: 5 04/05/2019 8:00 AM CDT documented as of this encounter
--- OUTSIDE RECORDS SUMMARY | 2022-07-06 14:54 | XMS_ITS | Encounter Summary ---
:1965 Author Organization [facility] Address [address] [place] [address] Care Team Providers Name Role Phone Unavailable Primary Care Provider Unavailable Reason for Visit Outpatient (Routine) - Closed Specialty Diagnoses / Procedures Referred By Contact Refer red To Contact Video Medicine Diagnoses Stroke Cerebrovascular Accident Personal History Robert Diehl [place] M.D. [address] [place] [address] Referral ID Status Reason Start Date Expiration Date Visits Requ ested Visits Authorized [id number] Closed 12/30/2020 12/30/2021 1 1 Encounter Details Date Type Department Care Team Description 02/02/2021 Virtual Visit Department of Robert Diehl Stroke Cere brovascular Neurology jimmy Celaya M.D. Accident Personal [place], [place] 200 [facility] History [address] [place] [phone] Social History Tobacco Use Types Packs/Day Years [...] you attend religion or Patient refused 2021 cheondoism services? Do you belong to any clubs or No 05/17/2022 organizations such as religion groups, unions, fraIndianStage or athletic groups, or school groups? How [...] encounter Progress Notes Robert Diehl M.D. - 02/02/2021 8:00 AM CST Patient present to local emergency department over the weekend was transferred to [facility] service where she is currently admitted. Therefore she will not be present for today's 8:00 a.m. Outpatient consultation. Highly appreciative of the [facility] Stroke Service cares. No charge. Electronically signed by: Robert Diehl M.D. 02/02/21 7:46 AM CAR AND YARD SUPERVISOR AND YARD SUPERVISOR documented in this encounter Plan of Treatment Not on filedocumented as of this encounter Visit Diagnoses Diagnosis Stroke Cerebrovascular Accident Personal History documented in this encounter Additional Health Concerns Assessment Noted Time PHQ-9 Depression Total Score: 23 02/02/2021 11:[address] documented as of this encounter
--- OUTSIDE RECORDS SUMMARY | 2022-07-06 14:54 | XMS_ITS | Encounter Summary ---
:1965 Author Organization [facility] Address [address] [place] [address] Care Team Providers Name Role Phone Unavailable Primary Care Provider Unavailable Reason for Visit Reason Comments Follow-up [facility] Patient Encounter Details Date Type Department Care Team Description 12/29/2020 [facility] Neurology jimmy Celaya M.D. Patient) [place], [facility][note 3] [address] [place], [place] [address] [place] [phone] [place], [place] [phone] (Work) [phone] Social History Tobacco Use Types Packs/Day Years [...] you attend restorationism or Patient refused 2021 oriental orthodox services? Do you belong to any [...] this encounter Miscellaneous Notes Telephone Encounter - Zuly Alex R.N. - 12/31/2020 10:25 AM CST When she calls back, we can let her know PCP needs to prescribe meclizine. OPENER Telephone Encounter - Allyssa Amaya - 12/29/2020 4:30 PM CST Patient calls in to ask whether or not images were pushed to Dr. Diehl's attention. We do have the images - CT head dated December 22, 2020. She then mentions a medication that Dr. Diehl will need to fill for her so she doesn't run out. She said it is meclizine. She goes on to share that she is having a hard time with bad episodes some of which she should've called an ambulance for; one of which lasted over ecs-ezv-s-half days. She is having headaches, etc. 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
--- OUTSIDE RECORDS SUMMARY | 2022-07-06 14:54 | XMS_ITS | Encounter Summary ---
:1965 Author Organization [facility] Address [address] [place] [address] Care Team Providers Name Role Phone Unavailable Primary Care Provider Unavailable Encounter Details Date Type Department Care Team Description 01/16/2021 Anticoagulation Visit Department of Elvira Villalta ([facility]) (Primary Dx); Neurology [facility] Anticoagulant Treatment [address] [place] [address] [place], [place] [phone] (Work) [phone] Social History Tobacco Use Types Packs/Day Years [...] you attend confucianist or Patient refused 2021 baptist services? Do [...] encounter Progress Notes Elvira Villalta R.N. - 01/16/2021 2:38 PM CST Anticoagulation management. Target INR 2.0-3.[address] Argenis Diehl ([phone]). The patient was scheduled for an INR recheck on 01/19/21 but we received a message that she had it drawn today, 01/16/21, by [facility] Nurse. I spoke with RADHA Roman [facility] and she relays that the home POC INR today is 3.9. I discussed this with Dr. Argenis Diehl ([phone]) who advises that the patient follow a warfarin dosing plan of 2.5 mg tonight, 01/16/21, then 5 mg each night after that, then have an INR recheck in four days. Dr. Diehl recommends the patient be managed by her PCP. Relayed these directions to the patient by telephone who reports an adequate understanding of the plan and denies noting any signs of bleeding or recurrent stroke-like symptoms. We discussed possible reasons for her increase in INR after being stable on the same dose for the past two weeks. The patient shares she does not eat any green leafyvegetables, she takes Tylenol arthritis (prescription) all the time. She reports that she also takes oxycodone and Vitamin D and that she was told to stop taking a diet medication, so this week she has not been taking that. We discussed a diet in moderation of vitamin K be followed along with not smoking or changing medications. I explained that Dr. Diehl recommends her INR's be followed by her primary care provider because of all of her medications and the need for local management. She agrees and asks for us to contact her primary care provider, Dr. Neri Blackwell, [facility], [place], [place]. I have put in a call for Dr. Blackwell's care team to call us back. Will schedule an INR recheck for 01/20/21. I will fax a standing INR order to RADHA Roman, [facility], phone # [phone], fax #[phone]. She will fax results back to us. Jessie requests we fax our clinical note of the day toher along with contacting the patient with dosing recommendations. RECOMMENDED LEVEL OF CARE. The patient/caller is willing and able to follow the nurse's recommendation. RESPONSE TO ADVICE GIVEN. Patient/caller able to teach back. REFERENCES UTILIZED. Nursing clinical judgment utilized. Other interventions or information: Provider advice. TYPE OF PHONE CALL. Test results, symptom assessment. TIE CENTRALIZING MACHINE OPERATOR documented in this encounter Plan of Treatment Not on filedocumented as of this encounter Procedures Procedure Name Priority Date/Time Associated Comments Diagnosis PROTHROMBIN TIME Routine 01/16/2021 2:10 PM Resul ts for this (PT), P NECKTIE CENTRALIZING MACHINE OPERATOR procedure are i n the results section. documented in this encounter Results Prothrombin Time (PT) (01/16/2021 2:10 PM NECKTIE CENTRALIZING MACHINE OPERATOR) P athologist Signature EXT INR 3.90 OTHER (SPECIFY IN PRESS TENDER) Specimen (Source) Anatomical Collection Method Collection Time Re ceived Time Location / / Volume Laterality Blood (Blood, 01/16/2021 2:10 PM Venous) NECKTIE CENTRALIZING MACHINE OPERATOR Resulting Agency Comment [facility] Historical Provider LAB BLOOD ADD-ON Performing Organization Address City/State/ZIP Code Phon e Number OTHER (SPECIFY IN PRESS TENDER) OTHER (SPECIFY IN PRESS TENDER) N/A documented in this encounter Visit Diagnoses Diagnosis Stroke (HCC) - [facility] ([facility]) Anticoagulant Treatm ent documented in this encounter Additional Health Concerns Assessment Noted Time PHQ-9 Depression Total Score: 5 04/05/2019 8:00 AM CDT documented as of this encounter
--- OUTSIDE RECORDS SUMMARY | 2022-07-06 14:54 | XMS_ITS | Encounter Summary ---
:1965 Author Organization [facility] Address [address] [place] [address] Care Team Providers Name Role Phone Unavailable Primary Care Provider Unavailable Encounter Details Date Type Department Care Team Description 01/20/2021 Clinical Communication Department of Elvira Villalta, Neurology in [place], [place] [address] [place] [address] [address] [place] [phone] Social History Tobacco Use Types Packs/Day Years [...] you attend congregational or Patient refused 2021 jainism services? Do [...]
--- OUTSIDE RECORDS SUMMARY | 2022-07-06 14:55 | XMS_ITS | Encounter Summary ---
:1965 Author Organization [facility] Address [address] [place], [place] [address] Care Team Providers Name Role Phone Unavailable Primary Care Provider Unavailable Encounter Details Date Type Department Care Team Description 11/29/2019 Hospital Encounter Department of Jey Santana, Rhinosi nusitis Chronic; Laboratory Medicine M.D. Preanesthetic Medical Exam and Pathology, [address] [place] [address] [phone] [place] [address] (Work) [place], [place] [phone] (Fax) [phone] Social History Tobacco Use Types Packs/Day Years [...] you attend yarsanism or Patient refused 2021 shinto services? Do [...] gram/dose as needed for oral powder constipation. tiZANidine (ZANAFLEX) 4 mg Take 4-8 mg by 1 03/27 tablet mouth every 8 (eight) hours as needed for muscle spasms. Muscle spasms valACYclovir (VALTREX) 500 Take 500 mg by 0 02/22 mg tablet mouth daily. zonisamide (ZONEGRAN) 100 Take 300 mg by 8 2018 mg capsule mouth 2 (two) times a day. doxycycline monohydrate Take 1 tablet (100 20 tablet 0 11/2812/17/2019 (ADOXA) 100 mg tablet mg total) by mouth 2 (two) times a day for 10 days. albuterol (ACCUNEB) 2.5 mg Inhale 1 vial [...] at bedtime as needed for sleep. sleep estradiol (VIVELLE-DOT) APPLY 1 PATCH TWICE 11 10/201902/02/2021 0.1 mg/24 hr patch WEEKLY on and Tuesday fluticasone propionate Administer 2 sprays 0 04/2802/02/2021 (FLONASE) 50 mcg/actuation into affected nasal spray nostril(s) at bedtime. folic acid (FOLVITE) 800 Take 800 mcg [...] to six weeks until off. oxyCODONE (ROXICODONE) 5 1 tablet 5 times 0 02/2709/12/2020 mg immediate release daily tablet oxyCODONE (ROXICODONE) 5 Take 1 tablet (5 mg 5 tablet 0 09/12/2020 mg immediate release total) by mouth tabletIndications: Acute every 4 (four) Pain hours as needed for severe pain or score 7-10 of 10 Indication: acute pain. phentermine (ADIPEX-P) 37.5 mg every 2 10/16/2019 [...] as needed. Med Name: Medical Marijuana Capsule varenicline (CHANTIX JULIANE) Use as directed on 53 tablet 0 09/12/2020 0.5 mg (11)- 1 mg (42) package tablet instructions, try to quit smoking after 1 week. warfarin (COUMADIN) 5 mg Take 1.5 tablets 0 04/0509/15/2020 tablet (7.5 mg total) by mouth daily. Per patient, dose increased to 1.5 tabs on Tuesday04/02/19 documented as of this encounter Plan of Treatment Not on filedocumented as of this encounter Procedures Procedure Name Priority Date/Time Associated Diagnosis Comme nts CBC WITHOUT Routine 11/29/2019 11:30 Rhinosinusitis Chronic R esults for this DIFFERENTIAL, B AM [employer] TRAINER procedure ar e in the results section. CREATININE WITH Routine 11/29/2019 11:30 Preanesthetic Medical Results for this EGFR, S/P AM [employer] TRAINER Exam procedure are i n the results section. documented in this encounter Results Creatinine with Estimated GFR - for Lab Draw (11/29/2019 11:30 AM [employer] SK[employer] TRAINER) P athologist Signature Creatinine, S 0.98 0.59 - 1.04 11/29/2019 DTL mg/dL 1:05 PM [employer] SK[employer] TRAINER eGFR-Non 65 >=60 11/29/2019 DTL Black/ mL/min/BSA 1:05 PM LIFE SKILLS TRAINER [place] Comment: ----ADDITIONAL INFORMATION---- Estimated GFR calculated using the 2009 CKD_EPI creatinine equation. eGFR-Black/ 75 >=60 mL/min/BSA 2019 1:05 PM LIFE SKILLS TRAINER DTL Comment: ----ADDITIONAL INFORMATION---- Estimated GFR calculated using the 2009 CKD_EPI creatinine equation. Specimen Anatomical Collection Method Collection Time Receive d Time (Source) Location / / Volume Laterality Blood (Blood, 11/29/2019 11:30 11/29/2019 Venous) AM [employer] SK[employer] TRAINER 11:50 AM LIFE SKILLS TRAINER Miranda Collado APRN C.N.P., M.S.N. LAB BLOOD ADD-ON Performing Organization Address City/State/ZIP Code Phon e Number [facility] - 200 [place], [place] [address] [facility] [place] [address] [facility] [address] (ABNORMAL) CBC without Differential (11/29/2019 11:30 AM LIFE SKILLS TRAINER) Patholo gist Method Time Signature Hemoglobin 13.3 11.6 - 11/29/2019 DTL 15.0 g/dL 12:09 PM [employer] SKILL[employer] TRAINER Hematocrit 40.6 35.5 - 11/29/2019 DTL 44.9 % 12:09 PM [employer] SK[employer] TRAINER Erythrocytes 4.08 3.92 - 11/29/2019 DTL 5.13 12:09 PM LIFE SKILLS TRAINER x10(12)/L MCV 99.5 (H) 78.2 - 11/29/2019 DTL 97.9 fL 12:09 PM [employer] SK[employer] TRAINER RBC Distrib Width 13.3 12.2 - 11/29/2019 DTL 16.1 % 12:09 PM [employer] SKILLS TRAINER Platelet Count 234 157 - 371 11/29/2019 DTL x10(9)/L 12:09 PM [employer] SKILL[employer] TRAINER Leukocytes 5.8 3.4 - 9.6 11/29/2019 DTL x10(9)/L 12:09 PM LIFE SKILL[employer] TRAINER Specimen Anatomical Collection Method Collection Time Receive d Time (Source) Location / / Volume Laterality Blood (Blood, 11/29/2019 11:30 11/29/2019 Venous) AM [employer] SKILLS TRAINER 11:50 AM LIFE SKILLS TRAINER Jey Santana M.D. LAB BLOOD ADD-ON Performing Organization Address City/State/ZIP Code Phon e Number [facility] - [address] [place], [place] [address] [facility] [place] [address] [facility] [address] documented in this encounter Visit Diagnoses Diagnosis Rhinosinusitis Chronic Preanesthetic Medical Exam documented in this encounter Additional Health Concerns Assessment Noted Time PHQ-9 Depression Total Score: 5 04/05/2019 8:00 AM CDT documented as of this encounter
--- OUTSIDE RECORDS SUMMARY | 2022-07-06 14:55 | XMS_ITS | Encounter Summary ---
:1965 Author Organization [facility] Address [address] [place] [address] Care Team Providers Name Role Phone Unavailable Primary Care Provider Unavailable Reason for Referral Outpatient (Routine) - Closed Specialty Diagnoses / Procedures Referred By Contact Refer herson To Contact General Surgery Diagnoses Rhinosinusitis Chronic John Gomez M.D. [facility] [address] [place] [id number] Referral ID Status Reason Start Date Expiration Date Visits Requ ested Visits Authorized [id number] Closed 11/08/2019 11/07/2020 1 1 utpatient (Routine) - Closed Specialty Diagnoses / Procedures Referred By Contact Clyde bains To Contact Otorhinolaryngology John Gomez M.D. [address] [address] Referral ID Status Reason Start Date Expiration Date Visits Requ ested Visits Authorized [id number] Closed 11/08/2019 11/07/2020 1 1 Scheduling Instructions EKO listing visit and NESHA 11/29/2019 [employer]CH Reason for Visit Reason Onset Date Comments reschedule surgery 11/07/2019 Patient was a no sydni w for surgery with Dr. Olmedo on 11/05/19. Encounter Details Date Type Department Care Team Description 11/07/2019 Clinical Department of shawna Olmedo Communication Otorhinolaryngology in [place], surg silva (Patient [place], [place] M.D. was a no show for [address] [place]. [place], [place] [phone] [place] on [phone] [place], 11/05/19.) [place] [address] Social History Tobacco Use Types Packs/Day Years Used Date Smoking Tobacco: Every Day Smokeless Tobacco: Never Comments: Since teens, used [...] you attend restoration or Patient refused 2021 spiritism services? Do you belong to any clubs [...] this encounter Miscellaneous Notes Telephone Encounter - Tanvi White R.N. - 11/09/2019 10:02 AM STAMPING [employer]ENCH Patient called to let her know of the preoperative appointments and listing appointment with Dr. Darlin Olmedo. She was also informed that she does not have to stop the aspirin 81 mg for surgery. She verbalized understanding regarding the use of aspirin and was appreciative of the call. [employer]ENCH Telephone Encounter - John Gomez M.D. - 11/08/2019 5:00 PM CST Kosta Wu, I placed the NESHA, listing visit, and created the listing. She can stay on her 81 ASA. Thank you. [employer]ING [employer]ENCH Addendum Note - John Gomez M.D. - 11/08/2019 4:59 PM [employer]ENCH Addended by: JOHN GOMEZ on: 11/08/2019 04:59 PM Modules accepted: Orders [employer]CH Telephone Encounter - Tanvi White R.N. - 11/08/2019 10:59 AM STAMPING [employer]ER [employer]ENCH SUBJECTIVE CHIEF COMPLAINT / REASON FOR CALL reschedule surgery (Patient was a no show for surgery with Dr. Olmedo on 11/05/19.) Information Discussed Surgical dates. PLAN Ms. Mosquera would like to have surgery on 12/07/[address] Darlin Olmedo. Patient needs a NESHA, listing appointment and post op appointment. She is asking for the NESHA and listing appointment not be back to back with the surgical date. She will require a maintenance truck driver and that plan will work better for her. Disposition/Recommendation: Patient is aware that she will need to call in the night before surgeryfor a report time to [facility]. Information/Education: patient/caller able to teach back Caller agreeable to plan of care: yes The following references were used: nursing clinical judgement [employer]CH Telephone Encounter - Darlin Olmedo M.D. - 11/08/2019 10:16 AM CST Any of those days are fine. I should see her for a listing visit and NESHA. thanks [employer]ENCH Telephone Encounter - Tanvi White R.N. - 11/07/2019 1:34 PM [employer]ENCH SUBJECTIVE CHIEF COMPLAINT / REASON FOR CALL No chief complaint on file. Information Discussed Rescheduling surgery. PLAN Patient is called to reschedule surgery. She was unaware that surgery was scheduled. Patient will need a pre and post op appointment with Dr. Olmedo along with a pre op exam for anesthesia clearance. If needed. Ms. Mosquera continues to take aspirin 81 mg daily and states she will come off the medicati on for surgery. In order of preference the Patient would like surgery on:11/30/2019, 12/07, or 12/17/19, pending approval from Dr. Olmedo. Ms. Mosquera was encouraged to set up a patient on line account and will be sent a pamphlet on how to create that. Disposition/Recommendation: notified provider and awaiting recommendations Information/Education: patient/caller able to teach back Caller agreeable to plan of care: yes The following references were used: nursing clinical judgement [employer]CH documented in this encounter Plan of Treatment Scheduled Referrals Name Type Priority Associated Diagnoses Order S chedule Otorhinolaryngology office Outpatient Routine E xpected: visit (clinic) Referral 11/29/2019, Expires: 11/08/2022 Preoperative Evaluation Outpatient Routine Rhinosinusitis Ex pected: NESHA consult (clinic) Referral Chronic 020 (Approximate), Expires: 11/08/2022 documented as of this encounter Results (ABNORMAL) CBC without Differential (11/29/2019 11:30 AM STAMPING DIE MAKER BENCH) [facility] gist Method Time Signature Hemoglobin 13.3 11.6 - 11/29/2019 DTL 15.0 g/dL 12:09 PM STAMPING [employer]KER BENCH Hematocrit 40.6 35.5 - 11/29/2019 DTL 44.9 % 12:09 PM STAMP[employer]ENCH Erythrocytes 4.08 3.92 - 11/29/2019 DTL 5.13 12:09 PM STAMPING DIE MAKER BENCH x10(12)/L MCV 99.5 (H) 78.2 - 11/29/2019 DTL 97.9 fL 12:09 PM ST[employer] BENCH RBC Distrib Width 13.3 12.2 - 11/29/2019 DTL 16.1 % 12:09 PM STAMP[employer] BENCH Platelet Count 234 157 - 371 11/29/2019 DTL x10(9)/L 12:09 PM STAMP[employer]IE [employer]KER BENCH Leukocytes 5.8 3.4 - 9.6 11/29/2019 DTL x10(9)/L 12:09 PM STAMPING DIE [employer]KER BENCH Specimen Anatomical Collection Method Collection Time Receive d Time (Source) Location / / Volume Laterality Blood (Blood, 11/29/2019 11:30 11/29/2019 Venous) AM STAMPING DIE MAKER BENCH 11:50 AM STAMPING DIE MAKER BENCH John Gomez M.D. LAB BLOOD ADD-ON Performing Organization Address City/State/ZIP Code Phon e Number [facility] - [address] [place], [place] [address] [facility] [place] [address] Laboratories[facility] [address] documented in this encounter Visit Diagnoses Diagnosis Rhinosinusitis Chronic - Primary documented in this encounter Additional Health Concerns Assessment Noted Time PHQ-9 Depression Total Score: 5 04/05/2019 8:00 AM CDT documented as of this encounter
--- OUTSIDE RECORDS SUMMARY | 2022-07-06 14:55 | XMS_ITS | Encounter Summary ---
:1965 Author Organization [facility] Address [address] [place] [address] Care Team Providers Name Role Phone Unavailable Primary Care Provider Unavailable Encounter Details Date Type Department Care Team Description 08/06/2020 Clinical Communication Department of Honorio, Otorhinolaryngology in [place], [place] [address] [place] [address] [facility] [phone] [place] [id number] Social History Tobacco Use Types Packs/Day Years [...] you attend [employer] or Patient refused 2021 adventism services? Do you belong to any clubs [...] this encounter Miscellaneous Notes Telephone Encounter - Makenzie Phan R.N. - 08/12/2020 2:39 PM CDT Called patient and left a message stating her CT scan looks clear, no sinus disease and that it has improved since her 2019 scans and to clarify why she felt the need to be scanned. Will wait her response. Telephone Encounter - Donna Martines - 08/11/2020 3:32 PM CDT Images are here and dated 08/06/2020 in the patient's chart. Please review the scans and please contact the patient to let her know if you see anything worrisome. Thank you, Donna Telephone Encounter - Donna Martines - 08/11/2020 10:23 AM CDT I called and spoke with Angie about her CT scans that she had done. She states that she had them done at [facility]. I called the facility and requested that they be pushed to us. They will be working on getting these sent to us. Angie would like to know if you see anything that is worrisome on the scan when you are able to review it. Thank you, Donna Telephone Encounter - Darlin Olmedo M.D. - 08/07/2020 12:13 PM CDT Donna, can you arrange to have the images sent here? Telephone Encounter - Aura Villanueva - 08/06/2020 4:24 PM CDT Patient called and wanted to let you know she had a CT Scan today in [place]. If her doctor there feels she needs to see Dr. Olmedo then he will put in another referral. At this time she wanted to cancel her appointment on 08/[address] Olmedo BUT she might need an appointment in the future. documented in this encounter Plan of Treatment Not on filedocumented as of this encounter Visit Diagnoses Not on filedocumented in this encounter Additional Health Concerns Assessment Noted Time PHQ-9 Depression Total Score: 5 04/05/2019 8:00 AM CDT documented as of this encounter
--- OUTSIDE RECORDS SUMMARY | 2022-07-06 14:55 | XMS_ITS | Encounter Summary ---
:1965 [facility] Organization [facility] Address [address] [place] [address] Care Team Providers Name Role Phone Unavailable Primary Care Provider Unavailable Encounter Details Date Type Department Care Team Description 12/07/2019 Anesthesia Event RST ROMB [facility] OR Leonides Walker, [address] [facility] [place] [address] [address] [place] [address] [place] [address] (Wo rk) Anesthesia Record Procedure Summary Procedure Name Responsible Anesthesia Start Anesthesia Stop Anesthesiologist Time Time SINUSOTOMY ENDOSCOPY Leonides Walker M.D. 12/07/19 1234 1434 FRONTAL. (Bilateral: Nose) Events Date Time Event Comment 12/07/2019 1210 1233 In Room 1234 An Start Machine/Equipmen t Checked Infection Precautions Foll owed Procedure/Site Verified NPO Sta tus Verified Supine Standard ASA Mon itors Applied 1240 An Induction 1244 An Intubation 1245 Turnover to Proceduralist 1315 Proc Start 1403 Proc Fin 1415 Airway Removal Criteria Met 1415 Extubation/Airway Removed 1417 an stop data 1419 Out of Room 1434 An End I completed my h andoff to the receiving staff during the [facility] we 1. Identified the patient 2. Ident ified the responsible provider 3. Revi ewed the pertinent medical history 4. Discussed the surgical course 5. Review ed intra-op anesthesia management and i ssues during anesthesia 6. Set expectati ons for post-procedure period 7. Allowe d opportunity for questions and ac knowledgement of understanding. Name Total lidocaine 2% (mg) injection 100 mg propofol 10 mg/mL 100 mg propofol 10 mg/mL infusion 536.71 mg succinylcholine 20 mg/mL injection 10 mg phenylephrine 100 mcg/mL injection 300 mcg ePHEDrine PF 5 mg/mL syringe injection 30 mg ondansetron 4 mg/2 mL injection 4 mg remifentanil 20 mcg/mL in NaCl 0.9% 100 mL infusion (U LTIVA) 1.05 mg dexamethasone 4 mg/mL injection 4 mg vancomycin in NaCl 0.9% IVPB 1,250 mg 1.25 g fentaNYL injection 25 mcg (SUBLIMAZE) 25 mcg Lactated Ringers Free Drip 700 mL Agents No agents on file. Blood No blood administrations on file. Lines, Drains, and Airways Type Details Placement Removal Peripheral IV Placement Date: 12/07/19; 12/07/19 1201 by 12/07 1222 by Placement Time: 1201; Pamela De Leon Britt M, Catheter Size: 20 G; R.N. Orientation: Left; Location: Hand; Site Prep: Chlorhexidine (Preferred); Removal Date: 12/07/19; Removal Time: 1222 ETT Placement Date: 12/07/19; 12/07/19 1244 by 12/07 1415 by Placement Time: 1244 Gini Garcia R, Simin valentine, Jey García, (created via procedure WELT POCKET MACHINE OPERATOR, CORE FITTER WELT POCKET MACHINE OPERATOR, TY A documentation); Mask Ventilation: Easy mask; Type: Standard ETT; Single Lumen Tube Size: 7 mm; Cuffed: Yes; Blade Size: MAC 3; Location: Oral; Removal Date: 12/07/19; Removal Time: 1415 (RETIRED) Incision 12/07/19; 1349; Nose; 12/07/19 1349 by Arvind, 0 02/10/21 2253 by Bilateral; 02/10/21; 2253 Mariah Bloom. Phoebe, Selam Alvarado, R.N. documented in this encounter Social History [...] you attend scientology or Patient refused 2021 yarsanism services? Do you belong to any clubs or No 05/17/2022 organizations such as scientology groups, unions, [employer] or athletic groups, or school groups? [...] encounter OR Notes Anesthesia Postprocedure Evaluation - Leonides Walker M.D. - 12/07/2019 2:36 PM CST Patient: Angie Mosquera Procedure Summary Date: 12/07/19 Room / Location: [place] [address] ROMB 01 580 / [facility] in [place], [place] Anesthesia Start: 1234 Anesthesia Stop: 1434 Procedures: SINUSOTOMY ENDOSCOPY FRONTAL. (Bilateral Nose) EXTRADURAL COMPUTER NAVIGATION. 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 Responsible Provider: Leonides Walker M.D. Anesthesia Type: general ASA Status: 3 Anesthesia Type: general Last vitals Vitals Value Taken Time BP 120/70 12/07/2019 2:30 PM Temp 36.5 ??C 12/07/2019 2:32 PM Pulse 84 12/07/2019 2:35 PM Resp 13 12/07/2019 2:35 PM SpO2 95 % 12/07/2019 2:35 PM Vitals shown include unvalidated device data. Please reference Vitals flowsheet for most recent vital signs. Anesthesia Post Evaluation Patient Disposition: dismissal Cardiovascular status: hemodynamics (HR & BP) acceptable Respiratory status: patent airway with spontaneous effort Temperature: normothermic Oxygen requirements: room air Level of consciousness: awake Pain score: pain adequately controlled and/or at baseline Post Op nausea/vomiting: none Hydration status: euvolemic Comments: 54 yo F s/p sinus surgery with Dr. Olmedo under GA; PONV post op with no emesis, but dry heaving; had received Aprepitant, Zofran, Scop Patch, and TIVA perioperatively; received triple anti-emetics intraop; responsive over time to Droperidol and Promethazine; otherwise, uneventful recovery with outpt dispo. HOUSE RECORD CLERK Anesthesia Procedure Notes - Gini Garcia APRN, CRNA - 12/07/2019 12:47 PM CSTAssociated Order(s): Airway Airway Date/Time: 12/07/2019 12:44 PM Performed by: Gini Garcia APRN, CRNA Authorized by: Leonides Walker M.D. Patient location during procedure: OR / Procedure Area PROCEDURE DETAILS: Mask difficulty assessment: easy mask Final airway type: direct laryngoscopy, intubation Laryngeal manipulation: yes Final airway difficulty of direct laryngoscopy (DL): 0-easy Final best view of glottic structures - Cormack/Lehane Score: grade 2B ETT location: oral Adult blade type: MAC 3 Adult tube size: 7 Adult ETT distance at teeth/gum: 22 Oral tube type: standard ETT Cuffed: yes Number of attempt to successful placement: 1 Airway confirmation: bilateral breath sounds, positive ETCO2 and bilateral chest rise Other previous techniques attempted: none Additional Comments Easy mask and DL; Grade 2B view; cricoid pressure to optimize DL view; cuff leak at 20 cm H2O. PRE PROCEDURE DETAILS: Pre evaluation for airway management: procedure Urgency: elective Preop assessment of probable difficulty: no difficulty anticipated Preoxygenation: bag valve mask SEDATION / ANESTHESIA Anesthesia method: anesthesia POST PROCEDURE DETAILS: Procedure outcome: successful Airway event: no complications HOUSE RECORD CLERK Anesthesia Preprocedure Evaluation - Leonides Walker M.D. - 12/07/2019 11:59 AM CST Preprocedure Anesthesia & H&P Assessment Procedure Summary Date/Time: 12/07/19 1119 Procedures: SINUSOTOMY ENDOSCOPY FRONTAL. (Bilateral Nose) EXTRADURAL COMPUTER NAVIGATION. 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 Location: [place] [address] / [facility] in [place], [place] Provider: Darlin Olmedo M.D. Pertinent components of the patient's history including current problem list, medical history, surgical history, family history, social history, medications and allergies were reviewed. Present illnessand pre-op diagnosis were confirmed. The planned surgery / procedure was verified with the patient /legal guardian. The patient's general health condition remains unchanged PROBLEM LIST Relevant Problems NEURO (+) Aneurysm Cerebral Unruptured (HCC) (+) Stroke (HCC) (+) Transient Ischemic Attack MSK/RHEUM (+) Esophageal Motility Disorder (+) Fibromyalgia Other (+) Nicotine Dependence Cigarettes OBJECTIVE PHYSICAL EXAMINATION Airway (HEENT) Essentially no neck extension from neutral. Mallampati: I TM Distance: >3 FB Neck ROM: Limited Mouth Opening: >3 cm Facies (pediatrics): normal Cardiovascular Rhythm: Regular Rate: Normal Cardiovascular Assessment: cardiovascular normal Functional Capacity: >4 METS Pulmonary Pulmonary Assessment: Non labored General / Constitutional Constitutional Assessment: Obese General State of Health:: calm Neurological Neurologic Assessment:??alert and alert and oriented x 3 Dental Dental Assessment: lower dentures and upper dentures ASSESSMENT / PLAN ANESTHESIA PLAN ASA: 3 Anesthesia Plan: general 54 yo F here for FESS under GA with Dr. Olmedo; was scheduled for late last year, but was delayed due to vertebral artery CVA which required temporary anti- coagulation, now off that, and with no residual neuromuscular deficits. Seen in [facility] clinic: Patient medically optimized for planned procedure: Yes ?? Surgery Specific Risk Classification: Low Risk ?? Further Recommendations: See below #1 Preanesthetic Medical Exam No prior anesthetic difficulty. Discussed anesthesia and monitoring in detail. Minimal risk Procedure. 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 Anticoagulated since. Recently switched to antiplatelet Rx. Goodrecovery. #4 Anxiety Generalized Disorder She will stay on medications #5 Chronic Pain Syndrome Spinal cord stimulator in place. It is not working. #6 Fibromyalgia She will stay on medications. 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 I will not pursue anything further Significant h/o PONV, give Aprepitant, Zofran, Scop patch preop. Also given Midaz IV for anxiety. She did not take her chronic anxiety meds or cannabis today. Plan: GA TIVA Prop Matty oral ETT, multimodal analgesia and antiemetics; outpt dispo. Patient seen and allergies reviewed, anesthesia plan and risks discussed directly with patient /legal guardian or through an social media project manager. The use of blood products not discussed Approval to Proceed: approved for anesthesia HOUSE RECORD CLERK documented in this encounter Plan of Treatment Not on filedocumented as of this encounter Procedures Procedure Name Priority Date/Time Associated Comments Diagnosis LDA ANE ENDOTRACHEAL Routine 12/07/2019 12:47 Res ults for this AIRWAY PM WAREHOUSE RECORD CLERK procedure are i n the results section. documented in this encounter Results LDA ANE ENDOTRACHEAL AIRWAY (12/07/2019 12:47 PM WAREHOUSE RECORD CLERK) Narrative Gini Garcia APRN, CRNA - 2019 12:47 PM WAREHOUSE RECORD CLERK Gini Garcia APRN, CRNA ? 12/07/2019 12:49 PM Airway Date/Time: 12/07/2019 12:44 PM Performed by: Gini Garcia APRN, CRNA Authorized by: Leonides Walker M.D. Patient location during procedure: OR / Procedure Area PROCEDURE DETAILS: Mask difficulty assessment: easy mask Final airway type: direct laryngoscopy, intubation Laryngeal manipulation: yes Final airway difficulty of direct laryng oscopy (DL): 0-easy Final best view of glottic structures - Cormack/Lehane Score: grade 2B ETT location: oral Adult blade type: MAC 3 Adult tube size: 7 Adult ETT distance at teeth/gum: 22 Oral tube type: standard ETT Cuffed: yes Number of attempt to successful placemen t: 1 Airway confirmation: bilateral breath so unds, positive ETCO2 and bilateral chest rise Other previous techniques attempted: non e Additional Comments Easy mask and DL; Grade 2B view; cricoid pressure to optimize DL view; cuff leak at 20 cm H2O. ?? PRE PROCEDURE DETAILS: Pre evaluation for airway management: pr ocedure Urgency: elective Preop assessment of probable difficulty: no difficulty anticipated Preoxygenation: bag valve mask SEDATION / ANESTHESIA Anesthesia method: anesthesia POST PROCEDURE DETAILS: ? Procedure outcome: successful ?? Airway event: no complications Leonides Walker M.D. ANESTHESIA ORDERABLES documented in this encounter Visit Diagnoses Not on filedocumented in this encounter Administered Medications Inactive Administered Medications - up to 3 most recent administrations Medication Order MAR Action Action Date Dose Rate Site dexamethasone injection (DECADRON) Given 12/07/2019 12:43 PM WAREHOUSE RECORD CLERK 4 mg As needed, Starting on Tue12/07/19 at 1243, Anesthesia Intra-op ePHEDrine (PF) injection Given 12/07/2019 12:48 PM WAREHOUSE RECORD CLERK 5 mg intravenous, As needed, Starting on Tue12/07/19 at 1242, Anesthesia Intra-op Given 12/07/2019 12:42 PM WAREHOUSE RECORD CLERK 25 mg fentaNYL injection 25 mcg (SUBLIMAZE) Given 12/07/2019 2:32 PM WAREHOUSE RECORD CLERK 25 mcg 25 mcg, intravenous, Every 2 min PRN, For pain 4 or greater (maximum 100 mcg). If max dose of Fentanyl is reached and if pain is greater than 4, discontinue Fentanyl: give Hydromorphone, Starting on Tue12/07/19 at 1145, Pre-Op lactated ringers New Bag 12/07/2019 12:39 PM WAREHOUSE RECORD CLERK intravenous, Continuous Infusion: Per Instructions PRN, Starting on Tue12/07/19 at 1239, Anesthesia Intra-op lidocaine (PF) (cardiac) injection Given 12/07/2019 12:40 PM WAREHOUSE RECORD CLERK 100 mg intravenous, As needed, Starting on Tue12/07/19 at 1240, Anesthesia Intra-op ondansetron (PF) injection (ZOFRAN) Given 12/07/2019 1:57 PM WAREHOUSE RECORD CLERK 4 mg intravenous, As needed, Starting on Tue12/07/19 at 1357, Anesthesia Intra-op phenylephrine injection Given 12/07/2019 12:50 PM WAREHOUSE RECORD CLERK 100 mcg intravenous, As needed, Starting on Tue12/07/19 at 1246, Anesthesia Intra-op Given 12/07/2019 12:48 PM WAREHOUSE RECORD CLERK 100 mcg Given 12/07/2019 12:46 PM WAREHOUSE RECORD CLERK 100 mcg propofol 10 mg/mL infusion Rate/Dose 12/07/2019 75 mcg/kg/min 34.4 m L/hr (DIPRIVAN) Change 12:46 PM WAREHOUSE RECORD CLERK intravenous, Continuous Infusion: Per Instructions PRN, Starting on Tue12/07/19 at 1241, Anesthesia Intra-op New Bag 12/07/2019 12:41 PM WAREHOUSE RECORD CLERK 250 mcg/kg/min 115 mL/hr propofol injection (DIPRIVAN) Given 12/07/2019 12:42 PM WAREHOUSE RECORD CLERK 100 mg intravenous, As needed, Starting on Tue12/07/19 at 1242, Anesthesia Intra-op remifentanil 20 mcg/mL in Rate/Dose 12/07/2019 1:43 0.1 mcg/kg/min 2 2.9 mL/hr NaCl 0.9% 100 mL infusion Change PM WAREHOUSE RECORD CLERK (ULTIVA) Continuous Infusion: Per Instructions PRN, Starting on Tue12/07/19 at 1246, Anesthesia Intra-op Rate/Dose Change 12/07/2019 12:53 PM WAREHOUSE RECORD CLERK 0.2 mcg/kg/min 45.8 mL/hr New Bag 12/07/2019 12:46 PM WAREHOUSE RECORD CLERK 0.25 mcg/kg/min 57.3 mL/hr succinylcholine (PF) injection (ANECTINE ) Given 12/07/2019 12:42 PM WAREHOUSE RECORD CLERK 10 mg intravenous, As needed, Starting on Tue12/07/19 at 1242, Anesthesia Intra-op vancomycin in NaCl 0.9% IVPB 1,250 mg Given 12/07/2019 12:51 PM WAREHOUSE RECORD CLERK 1.25 g 1,250 mg (rounded from 1,146 mg = 15 mg/ kg ? 76.4 kg), intravenous, at 175 mL/hr, Administer over 90 Minutes, Once, On Tue12/07/19 at 1130, For 1 dose, Intra-Op, Preoperatively within 2 hours prior to surgical incision premix bag, Drug Monitoring Program: Pharmacist to adjust medication dosing based on indication and drug clearance factors., Indications: Prophylaxis, surgical documented in this encounter Additional Health Concerns Assessment Noted Time PHQ-9 Depression Total Score: 5 04/05/2019 8:00 AM CDT documented as of this encounter
--- OUTSIDE RECORDS SUMMARY | 2022-07-06 14:55 | XMS_ITS | Encounter Summary ---
:1965 Author Organization [facility] Address [address] [place] [address] Care Team Providers Name Role Phone Unavailable Primary Care Provider Unavailable Reason for Visit Outpatient (Routine) - Closed Specialty Diagnoses / Procedures Referred By Contact Refer red To Contact Otorhinolaryngology Jey Santana M.D. [facility] [address] [place] [id number] Referral ID Status Reason Start Date Expiration Date Visits Requ ested Visits Authorized [id number] Closed 11/08/2019 11/07/2020 1 1 Encounter Details Date Type Department Care Team Description 11/29/2019 Office Visit Department of Darlin Olmedo Mucocele Nasa l Sinus Otorhinolaryngology jimmy Brumfield M.D. (Primary Dx) [place], [place] [address] [place] [address] [place] [phone] Social History Tobacco Use Types Packs/Day Years [...] or relatives? How often do you attend religious or Patient refused 2021 catholic services? Do you belong to any clubs or No 05/17/2022 organizations such as religious groups, unions, fraEduKart or athletic groups, or school groups? How [...] months, you worried that your food Someedwin mes true 05/17/2022 would run out before [...] documented as of this encounter Progress Notes Krista Casey, NIKKY, C.N.P., M.S.N. - 11/29/2019 2:45 PM CST CHIEF COMPLAINT / REASON FOR VISIT Bilateral ethmoid mucoceles HISTORY OF PRESENT ILLNESS Previous sinus surgery: sinus surgery X2 in [place] and X2 at [place] per patient; mucocele notedby left eye on 2 recent visits. Allergic rhinitis: Positive skin testing GERD: Denies Migraine headaches: Yes SNOT 22 score: 82 Angie Mosquera is a 54 y.o. female presenting today for her preoperative visit. She has a historyof bilateral ethmoid mucoceles which have increased in size between [address]She had been scheduled for sinus surgery to open the mucoceles in February of 2019. The surgery was postponed after the patient sustained a stroke the day prior to her sinus surgery. She has since finished a six month course of anticoagulation, and is now only taking a daily baby aspirin. Recent MRI fromSeptember 2019 shows stability of the thrombus. She is here today to discuss sinus surgery and is scheduled for December 07, 2018. She continues to have daily headaches between her eyes. She will get an occasional occipital headache. She takes oxycodone frequently for chronic pain. She will take tylenol as well which helps partially with the headache pain. She also has nasal obstruction that is worse on the left. She uses flonase intermittently but thinks this causes dryness. She does not irrigate her sinuses because it does notseem to go through both sides of her nose. She denies nasal drainage, double vision, or loss of vision. The following was reviewed today in clinic: Past medical history, surgical history, social history,allergies, and current medications. Tobacco use: Patient currently uses tobacco, 1/4 pack per day, interested in quitting no Alcohol use: none ROS Constitutional: Positive for fatigue, loss of appetite, night sweats, weight gain of more than 10 pounds and weight loss of more than 10 pounds. Eyes: Positive for visual problems. ENT: Positive for difficulty hearing and sinus congestion. Respiratory: Positive for coughing up mucus (phlegm), dry cough, dyspnea and wheezing. Cardiovascular: Positive for swelling in the legs or feet and pain in the calf muscles when walking. Gastrointestinal: Positive for diarrhea and heartburn. Genitourinary: Positive for decreased libido, difficulty urinating, urgency and frequent urination. Musculoskeletal: Positive for arthralgias, back pain, pain or stiffness in the joints, joint swelling and muscle pain/stiffness. Neurological: Positive for light-headedness, numbness or shooting pain in hands, arms, legs, or feet, excessive daytime sleepiness, loss of balance or tendency to fall easily, headaches, slurred speechand weakness in arms or legs. Psychiatric/Behavioral: Positive for decreased libido, excessive daytime sleepiness/tiredness, little interest or pleasure in doing things over past two weeks, feeling down, depressed, or hopeless overpast two weeks, not being able to stop or control worrying over past two weeks and feeling nervous, anxious, or on edge in past two weeks. The following systems were negative: Skin, Hematologic Discussed and reviewed specific ENT related concerns only during patient's consultation. Comprehensive system review for all other medical concerns is deferred to the patient's primary care provider asoutlined in the CVI. PHYSICAL EXAM Constitutional: Appears alert and well Nose: The external nose is without significant lesions or masses Neck: No stridor is present Cardiovascular: Upper extremities are well perfused Pulmonary/Chest: Respirations have grossly normal rate and effort No stridor Neurological: She is alert Facial strength is grossly normal and symmetric Skin: No facial rash noted Psychiatric: Affect appears appropriate PROCEDURE NOTE: Procedure: Nasal endoscopy. Indication for procedure: Evaluation of intranasal structures not visualized with anterior rhinoscopy. Anesthesia: Topical 0.5% phenylephrine & 2% lidocaine topical spray. Informed Consent: After explaining the risks, benefits and alternatives of nasal endoscopy, the patient verbalized understanding. Informed consent was obtained, universal protocol was followed, and theFire Risk Assessment was rated 2. A 30 degree rigid nasal endoscope was used to examine the left and right nasal cavities. The nasal valve areas were examined for abnormalities or collapse. The inferior and middle turbinates were evaluated. The middle and superior meati, and the sphenoethmoid recesses were examined and inspected for mucopurulence and polyps. Once the endoscope was withdrawn, the patient was noted to have tolerated the procedure well without complications and was returned to ambulatory status. Findings: Mild crusting and dryness of the anterior nasal cavities. Posterior nasal mucosa is smooth, pink, and moist. Maxillary sinuses are patent bilaterally without drainage. No polyps, edema, or masses noted. Nasopharynx is visualized and within normal limits without mass or lesions. Bilateral eustachian tubes are patent. There were no complications and the patient tolerated the procedure well. 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 The patient was offered both an in-office procedure and a revision sinus surgery under general anesthesia to drain the mucoceles. The patient would like to proceed with general anesthesia. The patientcan continue to take her daily baby aspirin. We discussed that if her headaches persist following the surgery, we may consider neuro headache consult to further evaluate her daily headache pain. She was counselled on the importance of irrigating her sinuses postoperatively. She requested Vicodin to manage her postoperative pain. We will plan to use the January 10, 2019 CT sinus scan for navigation in the operating room. Listing will be for bilateral frontal sinusotomies. A discussion was held regarding the potential risks, benefits and alternatives to surgery. The role of surgery in the patients overall care was also described including the likely need for continued medial therapy as well as post-operative debridements. In particular, the patient was counseled regarding the potential for surgical complications including bleeding, infection, pain, incomplete resolution of symptoms, need for revision procedures, cerebrospinal fluid leak, orbital injury with resultant vision problems, injury to the nasolacrimal duct, numbness of teeth/face and alteration or loss of sense of smell. We discussed with the patient that a team of professionals is focused on care and safety during their surgery. The primary surgeon is responsible for oversight of care during the procedureand for the critical portion of the surgery. There might be partial overlap of the patient???s procedure with another case, and if this occurs we will identify another beauty sales consultant surgeon to supervise other team members to safely and seamlessly complete the procedure. Signed consent was obtained today. Patient was seen and examined today in conjunction with Dr. Darlin Olmedo ([phone]). EXAMINER Associated attestation - Darlin Olmedo M.D. - 11/30/2019 10:43 AM TAX EXAMINER I was the supervising physician in the delivery of the service. I saw the patient with Krista Casey APRN, SENIOR MAINTENANCE MACHINIST, MSN and agree with her history, Assessment and Plan. I repeated the rigid nasal endoscopy, repeated the pertinent physical exam, and reviewed the imaging and available records. We discussed the option of attempting to open the frontal mucoceles in the office but she would prefer to have the procedure in the operating room. In the OR, we would be more likely to be able to remove all of the septations around the mucoceles. Imaging after her stroke shows these are still presentin both frontal recesses, left is larger, does not appear to have progressed significantly. Risks ofinjury to eye or skull base discussed; not having them opened and drained would mean a risk of further bone thinning into the orbit or skull base. She has significant headache which may not improve with surgery. I would recommend a consult with neurology (she has a history of migraines and her mother had migraines) if headaches continue after themucoceles are opened. documented in this encounter Plan of Treatment Not on filedocumented as of this encounter Visit Diagnoses Diagnosis Mucocele Nasal Sinus - Primary documented in this encounter Additional Health Concerns Assessment Noted Time PHQ-9 Depression Total Score: 5 04/05/2019 8:00 AM CDT documented as of this encounter
--- OUTSIDE RECORDS SUMMARY | 2022-07-06 14:55 | XMS_ITS | Encounter Summary ---
:1965 Author Organization [facility] Address [address] [place] [address] Care Team Providers Name Role Phone Unavailable Primary Care Provider Unavailable Encounter Details Date Type Department Care Team Description 10/09/2019 Orders Only Department of Otorhinolaryngology Alana Engel, in [facility] [address] [place] [address] 200 [place] [phone] [place], [place] [phone] Social History Tobacco Use Types Packs/Day Years [...] you attend baptism or Patient refused 2021 protestant services? Do you belong to any clubs [...]
--- OUTSIDE RECORDS SUMMARY | 2022-07-06 14:55 | XMS_ITS | Encounter Summary ---
:1965 Author Organization [facility] Address [address] [place] [address] Care Team Providers Name Role Phone Unavailable Primary Care Provider Unavailable Reason for Visit Reason Onset Date Comments Medication Question 01/08/2020 Encounter Details Date Type Department Care Team Description 01/08/2020 Clinical Department of [place], Medication Communication Otorhinolaryngology in [facility] [place], [place] Lilian [address] [place] [address] [place] [phone] [place] [phone] Social History Tobacco Use Types Packs/Day Years [...] this encounter Miscellaneous Notes Telephone Encounter - Pete Meeks M.D. - 01/08/2020 4:38 PM CST I spoke to the pharmacist. Sensimist is not covered. 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 The insurance will not cover it because at the end of the SIG it says Sensimist. Please call the pharmacy at [phone], or place another order. 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
--- OUTSIDE RECORDS SUMMARY | 2022-07-06 14:55 | XMS_ITS | Encounter Summary ---
:1965 Author Organization [facility] Address [address] [place] [address] Care Team Providers Name Role Phone Unavailable Primary Care Provider Unavailable Encounter Details Date Type Department Care Team Description 12/07/2019 Surgery [facility]ST [facility] OR Darlin Olmedo, SINUSOTOMY ENDOSCOPY [address] [facility] [place] [phone] [phone] [place] [address] [place] [id number] Social History Tobacco Use Types Packs/Day Years [...] you attend catholic or Patient refused 2021 yazdanism services? [...] AM CDT documented as of this encounter Discharge Instructions Discharge InstructionsJey Santana M.D. - 12/07/2019 2:00 PM CST HOME CARE INSTRUCTIONS FOLLOWING SINUS SURGERY For 1 week or until follow up: - No heavy lifting (over 15 pounds) or other strenuous activity that causes you to strain or increases your blood pressure. - Avoid nose blowing. - Cough and sneeze with your mouth open. - Elevate the head of your bed until it is comfortable to sleep flat. Head elevation can help reducebleeding and swelling. - Drink plenty of fluids (eight 8-ounce glasses of a non-caffeinated beverage a day). - Use a humidifier in the room where you sleep to help keep your sinuses moist. - Do not remove packing or splints if present. You may have to breathe from your mouth if the splints get occluded with mucous or clots. Saline rinses with decrease the amount of crusting and help keepthem open. Rinses: - Starting the day after surgery, rinse your sinuses twice daily with a saline sinus rinse kit (jose ramon Dalal or [place]). - Follow the directions on the bottle for use. - Use only distilled water with the salt packets. - Continue rinses until you are seen in clinic for follow up, usually about 1-2 weeks after surgery. - You will notice brownish material, blood, or mucus in the rinse. - If you use a steroid nasal spray or budesonide, you may continue this. CPAP use: - If you use a CPAP, talk to your surgeon about when it is safe to use after surgery. Typical postoperative findings: - Low-grade fever (temperature below 100.4 degrees F). - Mild nosebleed: change the drip pad as needed, use Afrin nasal spray only for bleeding, and do notuse for more than 3 days. - Mild face pain. - Nasal congestion. Abnormal postoperative findings (if present, call your surgeon): - Nosebleed where the drip pad has to be changed every few minutes. - Severe pain. - Fever over 100.4 Go to the nearest emergency room for: - Nosebleed where you are coughing up blood and it will not stop. - Swelling around the eyes. - Pain with eye movement. - Changes in vision. - Difficulty breathing. Medications: 1) Your surgeon will decide which pain medications, antibiotics, and other medications will be necessary after surgery. Please discuss all potential side effects and drug interactions with your pharmacist. 2) Do not drive or make important decisions while taking narcotic pain medications. 3) If you take a blood thinner for a heart condition, stroke, blood clot (e.g. DVT or PE), or clotting disorder, check with your surgeon regarding the plan for this medication around the time of surgery. 4) If you take aspirin for a heart condition, check with your surgeon regarding the plan for aspirinuse around the time of surgery. 5) You should use acetaminophen (Tylenol) and ibuprofen (Advil) for pain provided you have no medical contraindications to use, being sure not to take more than 3000 mg of acetaminophen in 24 hours. 6) If you are provided with a prescription for narcotic pain medication, you may use it for ???breakthrough?? pain, or pain that is not controlled if you are using acetaminophen and ibuprofen on a scheduled basis. 7) If you have questions regarding medication side effects, dosages, or interactions, please check with your pharmacist. FOLLOW UP INSTRUCTIONS: Unless otherwise indicated by your surgeon, it is important that you attend a follow up appointment.If you are to follow up in our clinic or with another department at [facility], an appointment willbe made for you. If you have not received specific details (date, time, location) within 2 weeks of discharge, please contact our office at [phone] to inquire. If you are to follow up somewhere other than [facility], please schedule this appointment (in the timeframe recommended by your surgeon)at your earliest convenience. CONTACT INFORMATION: If you need to reach the Department of ENT at the [facility] regarding any questions during normal business hours, please call . If you are calling after normal business hours and have a concern that needs to be addressed urgently, please call the [facility] [employer] [facility] at and ask to speak to the ENT resident physician surgeon. ER TENDER AttachmentsThe following attachments cannot be sent through Care Everywhere.Your Scopolamine Patch ([place] Ze[place])documented in this encounter Medications at Time of Discharge Medication Sig Dispensed Refills Start Date End Date albuterol (PROVENTIL Inhale 2 puffs 0 HFA,VENTOLIN HFA) 90 every 6 (six) hours mcg/actuation inhaler as needed for wheezing or shortness of breath. benzonatate (TESSALON Take 100 mg by 6 03/19/2019 PERLSHAHZAD) 100 mg capsule mouth 3 (three) times [...] on Tuesday04/02/19 documented as of this encounter OR Notes Op Note - Darlin Olmedo M.D. - 12/07/2019 1:15 PM CST FULL OP NOTE Procedure(s) (LRB): SINUSOTOMY ENDOSCOPY FRONTAL. (Bilateral) EXTRADURAL COMPUTER NAVIGATION. Surgeon(s) and Role: * Mohave, Darlin K, M.D. - Primary Anesthesia Type General Pre-operative Diagnosis Rhinosinusitis Chronic,Mucocele Nasal Sinus Post-operative Diagnosis Rhinosinusitis Chronic,Mucocele Nasal Sinus Findings As expected. Complications None Description of Procedure Operative Indications: The patient is a 54 y.o. year old female with a history of bilateral frontal mucoceles. She was deemed an appropriate candidate for endoscopic sinus surgery. Therefore, the risks, benefits, and alternatives of the above procedures were discussed and the patient agreed to proceed. Operative Findings: The patient was brought into the operating room and laid in a supine position on the operating roomtable. The surgical team verifed the patient and the procedure to be performed. General anesthesia was induced and the patient's airway was secured with an endotracheal tube secured off to the left side of the mouth with ties. A time out was called and the procedural pause was completed. Films were reviewed. Extradural computer navigation was registered according to song writer's guidelines and confirmed to be accurate within 2 mm. This was used throughout the case to identify the skull base, lamina papyracea and frontal sinuses throughout the case. The patient was turned 90 degrees toward the surgeons. The eyes were taped with clear tape and the patient was prepped and draped in the appropriate fashion. Four pledgets with 4cc of 4% cocaine were placed in the nasal cavity, two pledgets on each side ofthe nose. The procedure was begun on the left side. The cocaine pledgets were removed. The 0 degree endoscope was introduced and the nasal cavity was injected with 1% lidocaine with 1:100,000 epinephrine. We then switched to a 30 degree endoscope. The mucocele was confirmed with navigation in the frontalrecess. A frontal probe was used to enter the mucocele and thick yellow mucus was encountered. Through cutting instruments were used to widely open the mucocele. The lamina was dehiscent but the mucosaover the lamina was intact. The superior mucocele was obstructing the frontal sinus; the wall of thesuperior mucocele was removed and the frontal sinus was entered. The medial wall of the mucocele wasremoved. The frontal sinus was irrigated. Pledgets soaked with oxymetazoline were placed in the nasal cavity. Next we proceeded to the right side. Cocaine pledgets were removed. The 0 degree endoscope was introduced and the nasal cavity was injected with 1% lidocaine with 1:100,000 epinephrine. We then switched to a 30 degree endoscope. The frontal sinus recess mucocele was identified and confirmed with navigation. The mucocele was entered with the navigation probe and opened widely with through cutting instruments. Thick mucus was suctioned from the mucocele. The posterior wall was removed and the frontal sinus opening was widened. The frontal sinus was irrigated with saline. Pledgets soaked with oxymetazoline were placed in the nasal cavity. Posisept dissolvable foam was placed into the ethmoid cavity on the bilateral side. The pharynx was suctioned. The eyes were soft at the end of the case and untaped. There were no complications. The patient was turned back to anesthesia. The patient was awakened, extubated and transferred to the recovery room in stable condition. Endoscopic photos were saved. Specimens None Drains None Estimated Blood Loss 5 mL Implants None Darlin Olmedo M.D. ER TENDER Brief Op Note - Jey Santana M.D. - 12/07/2019 1:15 PM CST BRIEF OP NOTE Procedure(s) (LRB): SINUSOTOMY ENDOSCOPY FRONTAL. (Bilateral) EXTRADURAL COMPUTER NAVIGATION. Surgeon(s) and Role: * Darlin Olmedo M.D. - Primary Anesthesia Type General Pre-operative Diagnosis Rhinosinusitis Chronic,Mucocele Nasal Sinus Post-operative Diagnosis Rhinosinusitis Chronic,Mucocele Nasal Sinus Findings As expected. Complications None Specimens None Drains None Estimated Blood Loss None Implants None Jey Santana M.D. ER TENDER documented in this encounter Plan of Treatment Not on filedocumented as of this encounter Procedures Procedure Name Priority Date/Time Associated Diagnosis Comme nts ADULT OXYGEN THERAPY Routine 12/07/2019 2:30 PM BALLER TENDER EXTRADURAL COMPUTER 12/07/2019 12:13 PM Rhinosin usitis Chronic NAVIGATION BALLER TENDER Mucocele Nasal Sinus Case Notes PACKING MACHINE INSPECTOR 10:37 SINUSOTOMY ENDOSCOPY 12/07/2019 12:13 PM BALLER TENDER Rhi nosinusitis Chronic FRONTAL Mucocele Nasal Sinus Case Notes PACKING MACHINE INSPECTOR 10:37 documented in this encounter Visit Diagnoses Diagnosis Rhinosinusitis Chronic Mucocele Nasal Sinus documented in this encounter Administered Medications Inactive Administered Medications - up to 3 most recent administrations Medication Order MAR Action Action Date Dose Rate Site acetaminophen injection 1,000 New Bag 12/07/2019 2:38 PM 1,000 mg 400 mL/hr mg (OFIRMEV) BALLER TENDER 1,000 mg, intravenous, at 400 mL/hr, Administer over 15 Minutes, Once as needed, If patient has not received in previous 6 hours, Starting on Tue12/07/19 at 1430, For 1 dose, PACU (only), Oral unless RASS less than -1 or nausea/vomiting. Do not use if given in last 6 hours, Restriction Criteria (Pharmacy will review and approve if criteria met): Unable to take or tolerate medications administered via the enteral route or orally (not just NPO) acetaminophen tablet 1,000 mg (TYLENOL) Given 12/07/2019 12:06 PM BALLER TENDER 1,000 mg 1,000 mg, oral, Once, On Tue12/07/19 at 1200, For 1 dose, Pre-Op aprepitant capsule 40 mg (EMEND) Given 12/07/2019 12:06 PM BALLER TENDER 40 mg 40 mg, oral, Once as needed, prevent ponv, Starting on Tue12/07/19 at 1145, For 1 dose, Pre-Op caffeine tablet 200 mg Given 12/07/2019 12:06 PM BALLER TENDER 200 mg 200 mg, oral, Once as needed, pre-op to prevent caffeine withdrawal headache or to enhance emergence from anesthesia/sedation, Starting on Tue12/07/19 at 1145, For 1 dose, Pre-Op, With sips cocaine 4 % external solution Given 12/07/2019 1:10 PM BALLER TENDER 4 mL Other As needed, Starting on Tue12/07/19 at 1310, Intra-Op droperidol injection 0.625 mg (INAPSINE) Given 12/07/2019 2:37 PM BALLER TENDER 0.625 mg 0.625 mg, intravenous, Every 6 hours PRN, nausea, vomiting, Starting on Tue12/07/19 at 1432, For 48 hours, Total of 3 doses in 24 hour period. RASS must be -2 or higher to administer. Reassess for nausea or vomiting after at least 10 minutes. If nausea or vomiting persists administer next ordered antiemetic medications (order for antiemetic medication administration ondansetron then droperidol then promethazine). fentaNYL injection 25 mcg (SUBLIMAZE) Given 12/07/2019 2:32 PM BALLER TENDER 25 mcg 25 mcg, intravenous, Every 2 min PRN, For pain 4 or greater (maximum 100 mcg). If max dose of Fentanyl is reached and if pain is greater than 4, discontinue Fentanyl: give Hydromorphone, Starting on Tue12/07/19 at 1145, Pre-Op ketamine injection 10 mg (KETALAR) Given 12/07/2019 2:37 PM BALLER TENDER 10 mg 10 mg, intravenous, Once as needed, Pain sedation mismatch AND RASS score less than -1, Starting on Tue12/07/19 at 1430, For 1 dose, PACU (only) lactated ringers New Bag 12/07/2019 3:48 PM BALLER TENDER 20 mL/hr 20 mL/hr 20 mL/hr, intravenous, Continuous, Starting on Tue12/07/19 at 1400, PACU & Post-Op Continued from OR 12/07/2019 2:25 PM BALLER TENDER 20 mL/hr 20 mL/hr lidocaine-EPINEPHrine 1 %-1:100,000 Given 12/07/2019 1:45 PM BALLER TENDER 2 mL Other injection (XYLOCAINE W/EPI) As needed, Starting on Tue12/07/19 at 1320, Intra-Op Given 12/07/2019 1:20 PM BALLER TENDER 1.5 mL Other metoprolol tablet 12.5 mg (LOPRESSOR) 12.5 mg, oral, Once as needed, if patien t did not take their last scheduled dose of beta kemar prior to arrival, Starting on Tue12/07/19 at 1145, For 1 dose, Pre-Op, Do not give if patient does not take scheduled beta bl ockers, if patient is receiving intravenous vasopressors or inotropes, if he art rate is less than 50 beats per minute, if systolic blood pres sure is less than 90 mmHg or if diastolic blood pressure is less than 40 mmHg, or if patient has an allergy to metoprolol. midazolam (PF) injection 2 mg (VERSED) Given 12/07/2019 12:28 PM BALLER TENDER 2 mg 2 mg, intravenous, Once as needed, anxiety, sedation, Starting on Tue12/07/19 at 1145, For 1 dose, Pre-Op ondansetron ODT disintegrating tablet 4 mg Given 12/07/2019 12:0 7 PM BALLER TENDER 4 mg (ZOFRAN-ODT) 4 mg, sublingual, Once, On Tue12/07/19 at 1200, For 1 dose, Pre-Op, When splitting ODT at bedside, handle with gloves and a pill splitter to prevent moisture contact. oxymetazoline 0.05 % nasal spray Given 12/07/2019 1:42 PM BALLER TENDER 1 application (AFRIN) As needed, Starting on Tue12/07/19 at 1342, Intra-Op scopolamine base 1 mg Medication Applied 12/07/2019 12:11 PM 1 patch Behind Right over 3 days 1 patch BALLER TENDER Ear (TRANSDERM SCOP) 1 patch, transdermal, Administer over 72 Hours, Once as needed, nausea, vomiting, Starting on Tue12/07/19 at 1145, For 1 dose, Pre-Op, Contains 1.5 mg to deliver 1 mg/72 hours. sodium chloride 0.9 % injection 10 mL 10 mL, intravenous, As needed, line care , Starting on Tue12/07/19 at 1145, Pre-Op, Peripheral Intravenous Catheter and Rapid Infusion Cat heter, prior to blood sampling, post blood transfusion or post blood samplin g sodium chloride 0.9 % injection 3 mL 3 mL, intravenous, As needed, line care, Starting on Tue12/07/19 at 1145, Pre-Op, Prior to and following infusion and betw een multiple consecutive infusions: sodium chloride 0.9 % injection sodium chloride 0.9 % injection 3 mL 3 mL, intravenous, Every 12 hours scheduled, First dos e on Tue12/07/19 at 2100, Pre-Op, Peripheral Intravenous Catheter and Rapid Infu neisha Catheter, when no infusion to maintain patency documented in this encounter Active and Recently Administered Medications Times are shown in BALLER TENDER. Scheduled Medication Order 12/05/2019 12/06/2019 12/07/2019 acetaminophen tablet 1,000 mg (TYLENOL) 1200 (Due) 1,000 mg, oral, Once, Tue12/07/19 at 1200, For 1 dose, Pre-Op acetaminophen tablet 1,000 mg (TYLENOL) (COMPLETED) 1206 (Given - Provider: Steph Gallo R.N.) 1,000 mg, oral, Once, On Tue12/07/19 at 1200, For 1 dose, Pre-Op acetaminophen tablet 1,000 mg (TYLENOL) 1445 (Due) 1,000 mg, oral, Every 6 hours, First dos e on Tue12/07/19 at 1445, Orally or per feeding tube. lidocaine 10 mg/mL (1 %) injection 1 mL (XYLOCAINE) 1200 (Due) 1 mL, infiltration, Once, Tue12/07/19 at 1200, For 1 dose, Pre-Op, May admin up to 1 mL at the site of IV site if not allergic to lidocaine ondansetron ODT disintegrating tablet 4 mg (ZOFRAN-ODT) (COMPLET ED) 1207 (Given - Provider: Steph Gallo RBrittonNBritton) 4 mg, sublingual, Once, On Tue12/07/19 a t 1200, For 1 dose, Pre-Op, When splitting ODT at bedside, handle with gloves and a pill splitter to prevent moisture contact. sodium chloride 0.9 % injection 3 mL 3 mL, intravenous, Every 12 hours schedu led, First dose on Tue12/07/19 at 2100, Pre-Op, Peripheral Intravenous Catheter and Rapid Infusion Catheter, when no infusion to maintain patency sodium chloride 0.9 % injection 3 mL 3 mL, intravenous, Every 12 hours schedu led, First dose on Tue12/07/19 at 2100, Pre-Op, Peripheral Intravenous Catheter and Rapid Infusion Catheter, when no infusion to maintain patency vancomycin in NaCl 0.9% IVPB 1,250 mg (COMPLETED) 1251 (Given - Provider: Gini Garcia, VICE PRESIDENT QUALITY IMPROVEMENT, HAIR ASSISTANT) 1,250 mg (rounded from 1,146 mg = 15 mg/ kg ? 76.4 kg), intravenous, at 175 mL/hr, Administer over 90 Minutes, Once, On Tue12/07/19 at 1130, For 1 dose, Intra-Op, Preoperatively within 2 hours prior to surgical incision premix bag, Drug Monit oring Program: Pharmacist to adjust medication dosing based on indication and drug clearance factors., Indications: Prophylaxis, surgical Continuous Medication Order 12/05/2019 12/06/2019 12/07/2019 lactated ringers 1200 (Due) 20 mL/hr, intravenous, at 20 mL/hr, Cont inuous, Starting Tue12/07/19 at 1200, Pre-Op lactated ringers 1425 (Continued from OR - Provider: Jerica Uribe RBrittonN. - Comment: bag level 300 cc)1548 (New Bag - Provider: Jerica Uribe R.N.)1645 (Stopped - Provider: Jerica Uribe R.N.) 20 mL/hr, intravenous, Continuous, Start ing on Tue12/07/19 at 1400, PACU & Post-Op PRN Medication Order 12/05/2019 12/06/2019 12/07/2019 acetaminophen injection 1,000 mg (OFIRMEV) (COMPLETED) 1438 (New Bag - Provider: Jerica Uribe R.N.) 1,000 mg, intravenous, at 400 mL/hr, Adm inister over 15 Minutes, Once as needed, If patient has not received in previous 6 hours, Starting on Tue12/07/19 at 1430, For 1 dose, PACU (only), Oral unless RA SS less than -1 or nausea/vomiting. Do n ot use if given in last 6 hours, Restriction Criteria (Pharmacy will review and approve if criteria met): Unable to take or tolerate medications administered via the enteral route or orally (not just NPO) aprepitant capsule 40 mg (EMEND) (COMPLETED) 1206 (Given - Provider: Steph Gallo RBrittonNBritton) 40 mg, oral, Once as needed, prevent bahman v, Starting on Tue12/07/19 at 1145, For 1 dose, Pre-Op belladonna alkaloids-opium 16.2-60 mg suppository 1 ingram ppository (B&O SUPPRETTS) 1 suppository, rectal, Once as needed, b ladder spasms, Starting Tue12/07/19 at 1430, For 1 dose, PACU (only) caffeine tablet 200 mg (COMPLETED) 1206 (Given - Provider: Steph Gallo RBrittonNBritton) 200 mg, oral, Once as needed, pre-op to prevent caffeine withdrawal headache or to enhance emergence from anesthesia/sedation, Starting on Tue12/07/19 at 1145, For 1 dose, Pre-Op, With sips caffeine-sodium benzoate injection 500 mg 500 mg, intravenous, Once as needed, res piratory depression, if patient has delayed emergence from anesthesia or caffeine withdrawal headache, Starting Tue12/07/19 at 1430, For 1 dose, PACU (only) cocaine 4 % external solution (CANCELED) 1310 (Given - Provider: Darlin Olmedo M.D. - Comment: Soaked on cottonoids and placed in bilateral nares. Used throughout the case.) As needed, Starting on Tue12/07/19 at 1310, Intra-Op dexamethasone injection 4 mg (DECADRON) 4 mg, intravenous, Once as needed, nause a, vomiting, Starting Tue12/07/19 at 1432, For 1 dose, Give only if NOT given during the pre or intraoperative period. If ondansetron ordered, give dexamethasone with first dose of ondansetron. droperidol injection 0.625 mg (INAPSINE) 1437 (Given - Provider: Jerica Uribe RBetsy) 0.625 mg, intravenous, Every 6 hours PRN , nausea, vomiting, Starting on Tue12/07/19 at 1432, For 48 hours, Total of 3 doses in 24 hour period. RASS must be -2 or higher to administer. Reassess for nause a or vomiting after at least 10 minutes. If nausea or vomiting persists administer next ordered antiemetic medications (order for antiemetic medication administration ondansetron then droperidol then promethazine). fentaNYL injection 25 mcg (SUBLIMAZE) 1432 (Given - Provider: Jey Hancock RBetsy) 25 mcg, intravenous, Every 2 min PRN, Fo r pain 4 or greater (maximum 100 mcg). If max dose of Fentanyl is reached and if pain is greater than 4, discontinue Fentanyl: give Hydromorphone, Starting on Tue12/07/19 at 1145, Pre-Op fentaNYL injection 25 mcg (SUBLIMAZE) 25 mcg, intravenous, Every 2 min PRN, Fo r pain 4 or greater (maximum 100 mcg). If max dose of Fentanyl is reached and if pain is greater than 4, discontinue Fentanyl: give Hydromorphone, Starting Tue12/07/19 at 1430, PACU (only) flumazenil injection 0.5 mg (ROMAZICON) 0.5 mg, intravenous, As needed, reversal , Starting Tue12/07/19 at 1430, PACU (only) HYDROmorphone (PF) injection 0.2 mg (DILAUDID) 0.2 mg, intravenous, Every 5 min PRN, mo derate pain or score 4-6 of 10, severe pain or score 7-10 of 10, Starting Tue12/07/19 at 1145, Pre-Op, Up to maximum total dose of 2 mg HYDROmorphone (PF) injection 0.2 mg (DILAUDID) 0.2 mg, intravenous, Every 5 min PRN, mo derate pain or score 4-6 of 10, severe pain or score 7-10 of 10, Starting Tue12/07/19 at 1430, PACU (only), Up to maximum total dose of 2 mg ketamine injection 10 mg (KETALAR) (COMPLETED) 1437 (Given - Provider: Jerica Uribe R.N.) 10 mg, intravenous, Once as needed, Pain sedation mismatch AND RASS score less than -1, Starting on Tue12/07/19 at 1430, For 1 dose, PACU (only) labetalol injection 25 mg (NORMODYNE,TRANDATE) 25 mg, intravenous, Every 5 min PRN, hig h blood pressure, Treat to SBP <160 mm Hg, Starting Tue12/07/19 at 1430, For 4 doses, PACU (only) lidocaine-EPINEPHrine 1 %-1:100,000 injection (XYLOCAINE W/EPI) (CANCELED) 1320 (Given - Provider: Darlin Olmedo M.D. - Comment: Left nare.)1345 (Given - Provider: Darlin Olmedo M.D. - Comment: Right nare) As needed, Starting on Tue12/07/19 at 1320, Intra-Op meperidine (PF) injection 12.5 mg (DEMEROL) 12.5 mg, intravenous, Every 2 min PRN, s hivering, May repeat once, Starting Tue12/07/19 at 1430, For 2 doses, PACU (only), Restriction Criteria (Pharmacy will review and approve if criteria met): Prevention or treatment of post-anesthesia shivering metoprolol injection 5 mg (LOPRESSOR) 5 mg, intravenous, Once as needed, per Camelia baer instructions, Starting Tue12/07/19 at 1430, For 1 dose, PACU (only), Follow institution's IV administration guidelines metoprolol tablet 12.5 mg (LOPRESSOR) 12.5 mg, oral, Once as needed, if patien t did not take their last scheduled dose of beta kemar prior to arrival, Starting on Tue12/07/19 at 1145, For 1 dose, Pre-Op, Do not give if patient does not ta ke scheduled beta blockers, if patient i s receiving intravenous vasopressors or inotropes, if heart rate is less than 50 beats per minute, if systolic blood pressure is less than 90 mmHg or if diastolic blood pressure is less than 40 mmHg, or if patient has an allergy to metoprolol. midazolam (PF) injection 2 mg (VERSED) (COMPLETED) 1228 (Given - Provider: Steph Gallo R.N.) 2 mg, intravenous, Once as needed, anxie ty, sedation, Starting on Tue12/07/19 at 1145, For 1 dose, Pre-Op naloxone injection 0.2 mg (NARCAN) 0.2 mg, intravenous, Once as needed, res piratory depression, Starting Tue12/07/19 at 1432, For 1 dose, For respiratory rate less than 8 breaths/min. Do not exceed 0.4 mg total dose. Notify service if given. May repeat as directed by prescriber. ondansetron (PF) injection 4 mg (ZOFRAN) 4 mg, intravenous, Every 6 hours PRN, na usea, vomiting, (check to see if given intra-op), Starting Tue12/07/19 at 1430, For 48 hours, PACU (only), Administer first. If nausea and vomiting persists, move to droperidol. (order of antiemetic adm inistration - ondansetron then droperidol then granisetron) ondansetron (PF) injection 4 mg (ZOFRAN) 4 mg, intravenous, Every 6 hours PRN, na usea, vomiting, Starting Tue12/07/19 at 1432, For 48 hours, Reassess for nausea or vomiting after at least 10 minutes. If nausea or vomiting persists administer n ext ordered antiemetic medications (orde r for antiemetic medication administration ondansetron then droperidol then promethazine). oxybutynin tablet 5 mg (DITROPAN) 5 mg, oral, Once as needed, If patient i s not required to void prior to dismissal, Starting Tue12/07/19 at 1430, For 1 dose, PACU (only) oxyCODONE IR tablet 5 mg (ROXICODONE) 5 mg, oral, Once as needed, moderate clyde n or score 4-6 of 10, severe pain or score 7-10 of 10, Starting Tue12/07/19 at 1145, For 1 dose, Pre-Op oxyCODONE IR tablet 5 mg (ROXICODONE) 5 mg, oral, Once as needed, moderate clyde n or score 4-6 of 10, severe pain or score 7-10 of 10, Starting Tue12/07/19 at 1430, For 1 dose, PACU (only), Prior to discharge oxyCODONE IR tablet 5 mg (ROXICODONE) 5 mg, oral, Every 4 hours PRN, moderate pain or score 4-6 of 10, Starting Tue12/07/19 at 1432 oxymetazoline 0.05 % nasal spray (AFRIN) (CANCELED) 1342 (Given - Provider: Darlin Olmedo M.D. - Comment: Soaked on cottonoids and applied topically into bilateral nares throughout the case) As needed, Starting on Tue12/07/19 at 1342, Intra-Op promethazine injection 6.25 mg (PHENERGAN) 6.25 mg, intravenous, Every 6 hours PRN, nausea, vomiting, Starting Tue12/07/19 at 1432, For 48 hours, RASS must be -2 or higher to administer. Reassess for nausea/vomiting after at least 10 minutes. If nausea or vomiting persists administer next ordered antiemetic medications (order for antiemetic medication administration ondansetron then droperidol then promethazine). promethazine injection 6.25 mg (PHENERGAN) 6.25 mg, intravenous, Every 6 hours PRN, nausea, vomiting, Starting Tue12/07/19 at 1436, For 48 hours, PACU (only), RASS must be -2 or higher to administer. Reassess for nausea/vomiting after at least 1 0 minutes. If nausea or vomiting persist s administer next ordered antiemetic medications (order for antiemetic medication administration ondansetron then droperidol then promethazine). scopolamine base 1 mg over 3 days 1 patch (TRANSDERM SCOP) 1211 (Medication Applied - Provider: Steph Gallo R.N.)8060 (Due: Medication Removed - Provider: Discharge Provider, Automatic - Comment: Time automatically adjusted from order being discontinued) 1 patch, transdermal, Administer over 72 Hours, Once as needed, nausea, vomiting, Starting on Tue12/07/19 at 1145, For 1 dose, Pre-Op, Contains 1.5 mg to deliver 1 mg/72 hours. sodium chloride 0.9 % injection 10 mL 10 mL, intravenous, As needed, line care , Starting on Tue12/07/19 at 1145, Pre- Op, Peripheral Intravenous Catheter and Rapid Infusion Catheter, prior to blood sampling, post blood transfusion or post blood sampling sodium chloride 0.9 % injection 10 mL 10 mL, intravenous, As needed, line care , Starting Tue12/07/19 at 1145, Pre-Op, Peripheral Intravenous Catheter and Rapid Infusion Catheter, prior to blood sampling, post blood transfusion or post blood sampling sodium chloride 0.9 % injection 3 mL 3 mL, intravenous, As needed, line care, Starting on Tue12/07/19 at 1145, Pre- Op, Prior to and following infusion and between multiple consecutive infusions: sodium chloride 0.9 % injection sodium chloride 0.9 % injection 3 mL 3 mL, intravenous, As needed, line care, Starting Tue12/07/19 at 1145, Pre-Op, Prior to and following infusion and between multiple consecutive infusions: sodium chloride 0.9 % injection traMADol tablet 50 mg (ULTRAM) 50 mg, oral, Once as needed, moderate pa in or score 4-6 of 10, Starting Tue12/07/19 at 1145, For 1 dose, Pre-Op traMADol tablet 50 mg (ULTRAM) 50 mg, oral, Once as needed, moderate pa in or score 4-6 of 10, Starting Tue12/07/19 at 1430, For 1 dose, PACU (only) documented in this encounter Additional Health Concerns Assessment Noted Time PHQ-9 Depression Total Score: 5 04/05/2019 8:00 AM CDT documented as of this encounter
--- OUTSIDE RECORDS SUMMARY | 2022-07-06 14:55 | XMS_ITS | Encounter Summary ---
:1965 Author Organization [facility] Address [address] [place] [address] Care Team Providers Name Role Phone Unavailable Primary Care Provider Unavailable Encounter Details Date Type Department Care Team Description 11/29/2019 Ancillary Procedure Department of Otorhinolaryngology Social History Tobacco Use Types Packs/Day Years [...] you attend orthodoxy or Patient refused 2021 confucianist services? Do [...] Procedure Name Priority Date/Time Associated Comments Diagnosis OTORHINOLARYNGOLOGY IMAGE Routine 11/29/2019 3:10 Results for this EXAM PM SECURITY SHIFT MANAGER procedure are i n the results section. documented in this encounter Results NOSE-Otorhinolaryngology Image Exam (11/29/2019 3:10 PM SECURITY SHIFT MANAGER) Specimen (Source) Anatomical Collection Method Collection Time Re ceived Time Location / / Volume Laterality 11/29/2019 3:08 PM SECURITY SHIFT MANAGER Narrative [facility] - 11/29/2019 3:58 PM SECURITY SHIFT MANAGER This order has been created and auto-finalized [...]
--- OUTSIDE RECORDS SUMMARY | 2022-07-06 14:55 | XMS_ITS | Encounter Summary ---
:1965 Author Organization [facility] Address [address] [place] [id number] Care Team Providers Name Role Phone Unavailable Primary Care Provider Unavailable Reason for Visit Outpatient (Routine) - Closed Specialty Diagnoses / Procedures Referred By Contact Refer red To Contact Otorhinolaryngology Darlin Olmedo M.D . [facility] [address] [place] [phone] Referral ID Status Reason Start Date Expiration Date Visits Requ ested Visits Authorized [id number] Closed 12/18/2019 12/17/2020 1 1 Encounter Details Date Type Department Care Team Description 01/08/2020 Office Visit Department of Darlin Olmedo Mucocele Nasa l Sinus Otorhinolaryngology jimmy Brumfield M.D. (Primary Dx) [address] [place] [phone] Social History Tobacco Use Types Packs/Day [...] you attend nondenominational or Patient refused 2021 buddhist services? Do you belong to any clubs or No 05/17/2022 organizations such as nondenominational groups, unions, fraXIFIN or athletic groups, or school groups? How [...] documented as of this encounter Progress Notes Pete Meeks M.D. - 01/08/2020 2:15 PM CST SUBJECTIVE CHIEF COMPLAINT / REASON FOR VISIT Angie Mosquera is a 54 y.o. female who presents for post-operative evaluation. HISTORY OF PRESENT ILLNESS The patient is 4 weeks out form bilateral endoscopic frontal sinusotomy for frontal recess mucoceles. The patient reports having a recent cold where she has left facial pressure and nasal obstruction. She was last seen by Dr. Olmedo 12/18/19. She reports ear pressure, facial pressure and drainage. It is improving. She denies any fever or chills. She has headaches which are similar to pre-op. She takes medications for migraines. OBJECTIVE PHYSICAL EXAM Constitutional: Appears well Otoscopic: Hearing is grossly normal Eyes: Pupils are equal, round, and reactive to light Neurological: Facial strength is grossly normal and symmetric Psychiatric: Affect appears appropriate PROCEDURE NOTE: Procedure: POSTOP DEBRIDEMENT Indication: status post endscopic sinus surgery Informed Consent obtained: The risks, benefits, alternatives, and expectations were discussed with patient verbally and the patient wishes to proceed. Findings: After anesthesia and decongestion with topical lidocaine and phenylephrine spray, the nasal cavities were examined and debrided with a 0 and 30 degree endoscope. The frontal sinuses are widely patent. No purulence or polyps. Mild edema of the left frontal sinus recess tract. 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 Her sinuses are widely patent. For nasal obstruction, we discussed Flonase and the proper technique of this medication. She snores at night and we offered nasal dilator. She will continue saline irrigations and Flonase. HING MANAGER Associated attestation - Darlin Olmedo M.D. - 01/16/2020 5:45 PM TEACHING MANAGER I saw and evaluated the patient, participating in the dodson portions of the service. I reviewed the resident/fellow???s note. I agree with the resident/fellow???s findings and plan. Mucocele cavities andfrontal recesses patent on both sides. documented in this encounter Plan of Treatment Not on filedocumented as of this encounter Visit Diagnoses Diagnosis Mucocele Nasal Sinus - Primary documented in this encounter Additional Health Concerns Assessment Noted Time PHQ-9 Depression Total Score: 5 04/05/2019 8:00 AM CDT documented as of this encounter
--- OUTSIDE RECORDS SUMMARY | 2022-07-06 14:55 | XMS_ITS | Encounter Summary ---
:1965 Author Organization [facility] Address [address] [place] [address] Care Team Providers Name Role Phone Unavailable Primary Care Provider Unavailable Encounter Details Date Type Department Care Team Description 01/07/2020 Diagnostic Division of Pulmonary Akhil Diehl M.D. [facility] Medicine in [place], [facility] [address] [place], [place] 200 [facility] [phone] [place] [phone] Social History Tobacco Use Types Packs/Day Years [...] you attend sabianism or Patient refused 2021 restoration services? Do you belong to any clubs [...] Name Priority Date/Time Associated Diagnosis Comme nts PUL HOME OVERNIGHT Routine 01/08/2020 Fatigue Results f or this OXIMETRY procedure are i n the results section . documented in this encounter Results PUL Home Overnight Oximetry (01/08/2020) Specimen (Source) Anatomical Location Collection Method / Collectio n Time Received Time / Laterality Volume 01/08/2020 Narrative JOANNE GOMEZ EAP - 01/09/2020 2:20 PM CS T This result has an attachment that is no t available. See PDF report for results Procedure Note Darrius Pittman M.B.B.SBritton - 01/09/2020Form atting of this note might be different from the original. See PDF report for results Robert Diehl M.D. PFT ORDERABLES Performing Organization Address City/State/ZIP Code Phon e Number [facility] EAP documented in this encounter Visit Diagnoses Diagnosis Fatigue documented in this encounter Additional Health Concerns Assessment Noted Time PHQ-9 Depression Total Score: 5 04/05/2019 8:00 AM CDT documented as of this encounter
--- OUTSIDE RECORDS SUMMARY | 2022-07-06 14:55 | XMS_ITS | Encounter Summary ---
:1965 Author Organization [facility] Address [address] [place] [id number] Care Team Providers Name Role Phone Unavailable Primary Care Provider Unavailable Reason for Visit Reason Onset Date Comments Schedule Surgery 10/05/2019 Encounter Details Date Type Department Care Team Description 10/05/2019 Clinical Department of [place], Schedule Surge ry Communication [place], [place] [address] [facility] [address] [place] [phone] [place] [phone] Social History Tobacco Use Types Packs/Day Years [...] or relatives? How often do you attend quaker or Patient refused 2021 sikh services? Do you belong to any clubs or No 05/17/2022 organizations such as quaker groups, unions, fraternal or athletic groups, or [...] this encounter Miscellaneous Notes Telephone Encounter - Kaykay Murphy R.N. - 10/17/2019 8:10 AM JEWELSMITH Pt has return appt with EKO on 10/23 LSMITH Telephone Encounter - Alana Engel L.P.NBritton - 10/09/2019 2:49 PM CST Note sent to DR. Olmedo and patient's Neurology team to discuss clearance for surgery. Desk is scheduling a return for the patient ot discuss surgery. LSMITH Telephone Encounter - Alana Engel L.P.N. - 10/09/2019 2:35 PM CST SUBJECTIVE CHIEF COMPLAINT / REASON FOR CALL Schedule Surgery Patient is requesting the following information: Wanting to schedule surgery. PLAN The following information was provided : At the request of Dr. Olmedo, patient was called regarding her request to schedule surgery. Patienthad a stroke approx. 6 months ago the day prior to her scheduled sinus surgery and had to cancel. Patient recently was given the okay to undergo the procedure by her Neurology team and has come of her a nticoagulation therapy. Patient is however taking a 81mg daily aspirin. Patient instructed that Dr. Olmedo would like to see her prior to surgery to reassess. We can hold a date (Deceme) in thefuture, but it may need to change based on recommendations from Neurology due to continued aspirin use or Dr. Olmedo's recommendations. We will call her back after we have found a time for her to comeback to discuss surgical options. Information: patient/caller able to repeat back in their own words The following references were used: provider Dr. Olmedo LSMITH Telephone Encounter - Zoey Lipscomb - 10/05/2019 3:47 PM CST Angie Mosquera called and would like to schedule her surgery. She had a stroke the day before her surgery was scheduled and so it has been approximately 6 months since her stroke. Her physician has agreed that she could proceed with surgery. She wasn't sure if you needed to see her again prior to surgery? She would like to schedule for the first available surgical date. She can be reached at [phone]. LSMITH documented in this encounter Plan of Treatment Not on filedocumented as of this encounter Visit Diagnoses Not on filedocumented in this encounter Additional Health Concerns Assessment Noted Time PHQ-9 Depression Total Score: 5 04/05/2019 8:00 AM CDT documented as of this encounter
--- OUTSIDE RECORDS SUMMARY | 2022-07-06 14:55 | XMS_ITS | Encounter Summary ---
:1965 Author Organization [facility] Address [address] [place] [address] Care Team Providers Name Role Phone Unavailable Primary Care Provider Unavailable Encounter Details Date Type Department Care Team Description 08/05/2020 Clinical Communication Department of [place], Otorhinolaryngology in [place], [place] [address] [place], [place] [phone] [facility] [phone] [place] [phone] Social History Tobacco Use Types Packs/Day Years [...] you attend anabaptist or Patient refused 2021 scientology services? Do you belong to any clubs [...] encounter Miscellaneous Notes Telephone Encounter - Donna Martines - 08/06/2020 9:12 AM CDT Aura called patient to schedule COVID testing at [facility] prior to appointment. Didn't answer so jessica for her to call back. Telephone Encounter - Deepali Preston M.D. - 08/05/2020 4:45 PM CDT Yes, please schedule covid testing. Thanks! Telephone Encounter - Donna Martines - 08/05/2020 4:21 PM CDT Patient does not have COVID testing. Do we want to send her for a test prior to her appointment on 08/07 documented in this encounter Plan of Treatment Not on filedocumented as of this encounter Visit Diagnoses Not on filedocumented in this encounter Additional Health Concerns Assessment Noted Time PHQ-9 Depression Total Score: 5 04/05/2019 8:00 AM CDT documented as of this encounter
--- OUTSIDE RECORDS SUMMARY | 2022-07-06 14:55 | XMS_ITS | Encounter Summary ---
:1965 Author Organization [facility] Address [address] [place] [address] Care Team Providers Name Role Phone Unavailable Primary Care Provider Unavailable Reason for Visit Outpatient (Routine) - Closed Specialty Diagnoses / Procedures Referred By Contact Refer red To Contact General Surgery Diagnoses Rhinosinusitis Chronic Jey Santana M.D. [facility] [address] [place] [id number] Referral ID Status Reason Start Date Expiration Date Visits Requ ested Visits Authorized [id number] Closed 11/08/2019 11/07/2020 1 1 Encounter Details Date Type Department Care Team Description 11/29/2019 Comprehensive Visit Preoperative Jey Santana M.D. [address] [place] [phone] Preanesthetic Medical Exam (Primary Dx); Evaluation Center in Lanre Carvajal M.D. [address] [place] [phone] Rhinosinusitis Chronic [place], [place] [address] [place] [phone] Social History Tobacco Use Types Packs/Day Years [...] you attend yazidi or Patient refused 2021 amish services? Do [...] Sign Reading Time Taken Comments Blood Pressure 108/74 11/29/2019 12:45 PM EMBOSSING MACHINE OPERATOR Pulse 104 11/29/2019 12:45 PM EMBOSSING MACHINE OPERATOR Temperature 36.5 ??C (97.7 ??F) 11/29/2019 12:45 PM EMBOSSING MACHINE OPERATOR Respiratory Rate - - Oxygen Saturation 96% 11/29/2019 12:45 PM EMBOSSING MACHINE OPERATOR Inhaled Oxygen Concentration - - Weight 76.4 kg (168 lb 6.9 oz) 11/29/2019 12:45 PM EMBOSSING MACHINE OPERATOR Height 151.7 cm (4' 11.72) 11/29/2019 12:45 PM EMBOSSING MACHINE OPERATOR Body Mass Index 33.2 11/29/2019 12:45 PM EMBOSSING MACHINE OPERATOR documented in this encounter H&P Notes Lanre Carvajal M.D. - 11/29/2019 12:45 PM CST Preoperative Medical Evaluation Patient Name: Angie Mosquera Age: 54 y.o. Date of : 1965 Patient [address]: [address] [place] [phone] Primary Care Provider: No primary care provider on file. Referring Physician: Jey Santana M.D. Pending Procedure: Frontal Sinus Endoscopy Surgeon: Dr. Olmedo Current Medications: ??? UNABLE TO FIND, Med Name: Medical Marijuana ??? albuterol (ACCUNEB) 2.5 mg /3 mL nebulizer solution, Inhale 1 vial every 6 (six) hours as neededfor shortness of breath. ??? albuterol (PROVENTIL HFA,VENTOLIN HFA) 90 mcg/actuation inhaler, Inhale 2 puffs every 6 (six) hours as needed for wheezing or shortness of breath. ??? alum-mag hydroxide-simeth (MAALOX ADVANCED) 200-200-20 mg/5 mL suspension, Take 30 mL by mouth every 4 (four) hours as needed for indigestion or heartburn. ??? ARTHRITIS PAIN RELIEF, ACETAM, 650 mg ER tablet, TAKE TWO TABLETS (1300MG) BY MOUTH EVERY EIGHT HOURS ??? aspirin [address] tablet, 81 mg daily. Last taken 11/28/18 ??? atorvastatin (LIPITOR) 40 mg tablet, Take 1 tablet (40 mg total) by mouth at bedtime. ??? benzonatate (TESSALON PERLES) 100 mg capsule, Take 200 mg by mouth 3 (three) times a day as needed for cough. ??? biotin 5 mg tablet, Take 5 mg by mouth every morning. ??? budesonide-formoterol (SYMBICORT) 160-4.5 mcg/actuation inhaler, Inhale 2 puffs 2 (two) times a day. ??? cetirizine (ZyrTEC) 10 mg tablet, Take 10 mg by mouth 2 (two) times a day. ??? cholecalciferol (VITAMIN D3) tablet, Take 10,000 Units by mouth every morning. ??? clindamycin (CLINDAGEL) 1 % gel, as needed. ??? cyanocobalamin, vitamin B-12, 2,500 mcg tablet, sublingual, every morning. ??? diazePAM (VALIUM) 10 mg tablet, Take 5-10 mg by mouth every 12 (twelve) hours as needed for anxiety or sedation. ??? dihydroergotamine (MIGRANAL) 0.5 mg/pump act. (4 mg/mL) nasal spray, Administer 1 spray into each nostril as directed. 1 spray into each nostril as needed; may repeat every 15 minutes, max dose of 6 sprays/day; 8 sprays/week ??? diphenhydrAMINE (BENADRYL) 25 mg capsule, Take 25-50 mg by mouth at bedtime as needed for sleep.sleep ??? esomeprazole (NexIUM) [address] capsule, Take 40 mg by mouth 2 (two) times a day before breakfastand dinner. ??? estradiol (VIVELLE-DOT) 0.1 mg/24 hr patch, APPLY 1 PATCH TWICE WEEKLY on and Tuesday ??? FLUoxetine (PROzac) 40 mg capsule, Take 60 mg by mouth every morning. ??? fluticasone propionate (FLONASE) 50 mcg/actuation nasal spray, Administer 2 sprays into affectednostril(s) at bedtime. ??? folic acid (FOLVITE) 800 mcg tablet, Take 800 mcg by mouth every morning. ??? furosemide (LASIX) 40 mg tablet, Take 40 mg by mouth 2 (two) times a day. ??? lamoTRIgine (LaMICtal) 200 mg tablet, Take 200 mg by mouth 2 (two) times a day. ??? lidocaine (LIDODERM) 5 %, Apply 1 patch to painful area of skin for up to 12 hours within a 24-hour period as needed for pain ??? MAG-G 27 mg magnesium (500 mg) tablet, Take 1 tablet by mouth at bedtime. ??? metoclopramide (REGLAN) 10 mg tablet, Take 10 mg by mouth 3 (three) times a day as needed for nausea. ??? mometasone-formoterol (DULERA) 200-5 mcg/actuation inhaler, 2 puffs 2 (two) times a day. ??? nicotine (NICODERM CQ) 14 mg/24 hr patch, Apply 14 mg patch daily for four to six weeks, then taper to 7 mg for two to six weeks until off. (Patient not taking: Reported on 11/29/2019 ) ??? ondansetron ODT (ZOFRAN ODT) 4 mg disintegrating tablet, Take 1 tablet by mouth every 8 (eight) hours as needed for nausea. ??? oxyCODONE (ROXICODONE) 5 mg immediate release tablet, 1 tablet 5 times daily ??? phentermine (ADIPEX-P) 37.5 mg tablet, 37.5 mg every morning. ??? polyethylene glycol (MIRALAX) 17 gram/dose oral powder, Take 17 g by mouth at bedtime as needed for constipation. ??? potassium chloride (KLOR-CON M) 10 mEq ER tablet, Take 10 mEq by mouth 2 (two) times a day with meals. ??? pregabalin (LYRICA) 150 mg capsule, Take 150-450 mg by mouth 2 (two) times a day. 1 cap in the morning, 3 caps at night. ??? promethazine (PHENERGAN) 25 mg tablet, Take 25 mg by mouth every 6 (six) hours as needed for nausea. ??? RESTASIS 0.05 % ophthalmic emulsion, Administer 1 drop into both eyes 2 (two) times a day. ??? rOPINIRole (REQUIP) 2 mg tablet, 2 mg daily as needed. ??? SPIRIVA RESPIMAT 2.5 mcg/actuation inhaler, Inhale 2 puffs every morning. ??? tiZANidine (ZANAFLEX) 2 mg tablet, Take 2 mg by mouth every 8 (eight) hours as needed. Muscle spasms ??? valACYclovir (VALTREX) 500 mg tablet, Take 500 mg by mouth daily. Take 2 pills at onset of cold sore symptoms as needed ??? varenicline (CHANTIX JULIANE) 0.5 mg (11)- 1 mg (42) tablet, Use as directed on package instructions, try to quit smoking after 1 week. (Patient not taking: Reported on 11/29/2019 ) ??? warfarin (COUMADIN) 5 mg tablet, Take 1.5 tablets (7.5 mg total) by mouth daily. Per patient, dose increased to 1.5 tabs on Tuesday04/02/19 (Patient not taking: Reported on 11/29/2019 ) ??? zonisamide (ZONEGRAN) 100 mg capsule, Take 300 mg by mouth 2 (two) times a day. Preoperative assessment questions reviewed with comments (See below) Recent stroke, Vertebral system. All care here. No more anticoagulation planned. Constitutional: Positive for fatigue, loss of appetite, [...] The following systems were negative: Skin, Hematologic OBJECTIVE PHYSICAL EXAMINATION Airway (HEENT) Mallampati: II TM Distance: >3 FB Neck ROM: Limited Mouth Opening: >3 cm Upper Lip Bite Test Class: II Cardiovascular Rhythm: Regular Rate: Normal Cardiovascular Assessment: cardiovascular normal Functional Capacity: >4 METS Pulmonary Pulmonary Assessment: Clear and non labored General / Constitutional Constitutional Assessment: Overweight Neurological Neurologic Assessment:??alert and alert and oriented x 3 Dental Dental Assessment: lower dentures and upper dentures Assessment / Plan No Patient medically optimized for planned procedure: Yes Surgery Specific Risk Classification: Low Risk Further Recommendations: See below #1 Preanesthetic Medical [...] #11 Patent Foramen Ovale (HCC) Noted on [id number]/ ECHO otherwise normal. I will not pursue anything further SSING MACHINE OPERATOR documented in this encounter Plan of Treatment Not on filedocumented as of this encounter Results Creatinine with Estimated GFR - for Lab Draw (11/29/2019 11:30 AM EMBOSSING MACHINE OPERATOR) P athologist Signature Creatinine, S 0.98 0.59 - 1.04 11/29/2019 DTL mg/dL 1:05 PM EMBOSSING MACHINE OPERATOR eGFR-Non 65 >=60 11/29/2019 DTL Black/ mL/min/BSA 1:05 PM EMBOSSING MACHINE OPERATOR [place] Comment: ----ADDITIONAL INFORMATION---- Estimated GFR calculated using the 2009 CKD_EPI creatinine equation. eGFR-Black/ 75 >=60 mL/min/BSA 2019 1:05 PM EMBOSSING MACHINE OPERATOR DTL Comment: ----ADDITIONAL INFORMATION---- Estimated GFR calculated using the 2009 CKD_EPI creatinine equation. Specimen Anatomical Collection Method Collection Time Receive d Time (Source) Location / / Volume Laterality Blood (Blood, 11/29/2019 11:30 11/29/2019 Venous) AM EMBOSSING MACHINE OPERATOR 11:50 AM EMBOSSING MACHINE OPERATOR Miranda Collado APRN, C.N.P., M.S.N. LAB BLOOD ADD-ON Performing Organization Address City/State/ZIP Code Phon e Number [facility] - [address] [place], [place] [address] [facility] [place] [address] [facility] [address] documented in this encounter Visit Diagnoses Diagnosis Preanesthetic Medical Exam - Primary Rhinosinusitis Chronic documented in this encounter Additional Health Concerns Assessment Noted Time PHQ-9 Depression Total Score: 5 04/05/2019 8:00 AM CDT documented as of this encounter
--- OUTSIDE RECORDS SUMMARY | 2022-07-06 14:55 | XMS_ITS | Encounter Summary ---
:1965 Author Organization [facility] Address [address] [place] [address] Care Team Providers Name Role Phone Unavailable Primary Care Provider Unavailable Encounter Details Date Type Department Care Team Description 12/06/2019 Clinical Communication Department of Robert Diehl, Neurology in .. [place], [place] 200 [facility] 200 [place] [phone] Social History Tobacco Use Types Packs/Day Years [...] you attend pentecostalism or Patient refused 2021 jewish services? Do [...] this encounter Miscellaneous Notes Telephone Encounter - Janis Preston R.N. - 12/06/2019 1:35 PM CST Relaying message from Dr. Diehl: Oximetry was unsuccessful and would need to be repeated and ask if they would like to do this? Patient is interested in repeating test, would like to do sometime tomorrow after her surgery if possible and she would drop it off during her next visit. Janis Preston R.N. CIENCES ASSOCIATE PROFESSOR Telephone Encounter - Janis Preston R.N. - 12/06/2019 1:35 PM CST ----- Message from Robert Diehl M.D. sent at 12/03/2019 10:17 AM GEOSCIENCES ASSOCIATE PROFESSOR ----- Regarding: FW: Overnight oximetry Good morning Would you be able to reach out and let this patient know the oximetry was unsuccessful and would need to be repeated and ask if they would like to do this? Thank you! Electronically signed by: Robert Diehl M.D. 12/03/19 10:18 AM GEOSCIENCES ASSOCIATE PROFESSOR ----- Message ----- From: Carolynn Stokes Sent: 11/29/2019 2:39 PM GEOSCIENCES ASSOCIATE PROFESSOR To: Robert Diehl M.D. Subject: Overnight oximetry Your patients overnight oximetry test did not have recorded data of sufficient duration for an interpretation to be completed and was returned four months after appointment. Therefore an overnight oximetry report will not be generated to [facility]. Please contact your clinical community relations assistant to reschedule an overnight oximetry test if you wish the patient to repeat an overnight oximetry test. CIENCES ASSOCIATE PROFESSOR documented in this encounter Plan of Treatment Not on filedocumented as of this encounter Results PUL Home Overnight Oximetry [...] Organization Address City/State/ZIP Code Phon e Number [facility] documented in this encounter Visit Diagnoses Diagnosis Fatigue - Primary Fatigue documented in this encounter Additional Health Concerns Assessment Noted Time PHQ-9 Depression Total Score: 5 04/05/2019 8:00 AM CDT documented as of this encounter
--- OUTSIDE RECORDS SUMMARY | 2022-07-06 14:55 | XMS_ITS | Encounter Summary ---
:1965 Author Organization [facility] Address [address] [place] [address] Care Team Providers Name Role Phone Unavailable Primary Care Provider Unavailable Encounter Details Date Type Department Care Team Description 12/18/2019 Ancillary Procedure Department of Otorhinolaryngology Social History [...] you attend yazdanism or Patient refused 2021 mormon services? Do [...] Date/Time Associated Comments Diagnosis OTORHINOLARYNGOLOGY IMAGE Routine 12/18/2019 1:57 Results for this EXAM PM WELDING MACHINE OPERATOR ELECTRON BEAM procedure are i n the results section. documented in this encounter Results NOSE-Otorhinolaryngology Image Exam (12/18/2019 1:57 PM WELDING MACHINE OPERATOR ELECTRON BEAM) Specimen (Source) Anatomical Collection Method Collection Time Re ceived Time Location / / Volume Laterality 12/18/2019 1:57 PM WELDING MACHINE OPERATOR ELECTRON BEAM Narrative [facility] - 12/18/2019 1:57 PM WELDING MACHINE OPERATOR ELECTRON BEAM This order has been created and auto-finalized [...]
--- OUTSIDE RECORDS SUMMARY | 2022-07-06 14:55 | XMS_ITS | Encounter Summary ---
:1965 Author Organization [facility] Address [address] [place] [address] Care Team Providers Name Role Phone Unavailable Primary Care Provider Unavailable Reason for Referral Outpatient (Routine) - Closed Specialty Diagnoses / Procedures Referred By Contact Refer red To Contact Otorhinolaryngology Darlin Olmedo M.D . [address] [phone] Referral ID Status Reason Start Date Expiration Date Visits Requ ested Visits Authorized [id number] Closed 12/18/2019 12/17/2020 1 1 TMAN Reason for Visit Outpatient (Routine) - Closed Specialty Diagnoses / Procedures Referred By Contact Refer red To Contact Otorhinolaryngology Darlin Olmedo M.D . [address] [phone] Referral ID Status Reason Start Date Expiration Date Visits Requ ested Visits Authorized [id number] Closed 11/29/2019 11/28/2020 1 1 Encounter Details Date Type Department Care Team Description 12/18/2019 Office Visit Department of Darlin Olmedo Mucocele Nasa l Sinus Otorhinolaryngology jimmy Brumfield M.D. (Primary Dx) [address] [place] [phone] Social History Tobacco Use Types Packs/Day Years [...] you attend anabaptist or Patient refused 2021 moravian services? Do [...] documented as of this encounter Progress Notes Darlin Olmedo M.D. - 12/18/2019 1:30 PM CST SUBJECTIVE CHIEF COMPLAINT / REASON FOR VISIT Angie Mosquera is a 54 y.o. female who presents for evaluation of No chief complaint on file.. HISTORY OF PRESENT ILLNESS S/p bilateral endoscopic frontal sinus surgery for bilateral frontal recess mucoceles. Doing rinses.Still some headaches (present preop also). Surgery previously delayed due to stroke 1 day prior to surgical date. OBJECTIVE PHYSICAL EXAM Constitutional: Appears well Otoscopic: [...] with a 0 and 30 degree endoscope. Crusts and debris were removed were removed from the middle meatus on both sides with a 0 degree scope. Eschar in the frontal recesses was removed. Thick mucus was suctioned from each frontal sinus. The frontal sinuses were patent after debridement. The patient tolerated the procedure well and there were no complications. 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 Some inflammation around opens. She and I talked about if they will stay open; I'll see her in a couple of weeks and rescope her to assess them. If she still has headaches at that time, then we will refer to neurology headache clinic. TMAN documented in this encounter Plan of Treatment Scheduled Referrals Name Type Priority Associated Order Schedule Diagnoses Otorhinolaryngology office Outpatient Routine E xpected: visit (clinic) Referral 01/01/2020 (Approximate), Expires: 12/18/2022 documented as of this encounter Visit Diagnoses Diagnosis Mucocele Nasal Sinus - Primary documented in this encounter Additional Health Concerns Assessment Noted Time PHQ-9 Depression Total Score: 5 04/05/2019 8:00 AM CDT documented as of this encounter
--- OUTSIDE RECORDS SUMMARY | 2022-07-06 14:55 | XMS_ITS | Encounter Summary ---
:1965 Author Organization [facility] Address [address] [place] [address] Care Team Providers Name Role Phone Unavailable Primary Care Provider Unavailable Encounter Details Date Type Department Care Team Description 12/08/2019 Documentation Department of Darlin Olmedo, Otorhinolaryngology in [place], [place] [address] [place] [address] 200 [place] [phone] Social History Tobacco Use Types Packs/Day Years [...] or relatives? How often do you attend muslim or Patient refused 2021 yarsanism services? Do you belong to any clubs or No 05/17/2022 organizations such as muslim groups, unions, fraternal or athletic groups, or [...] documented as of this encounter Progress Notes Clemente Medley M.D. - 12/08/2019 1:33 PM CST Spoke to patient on the phone. Having persistent pain post-op from endoscopic sinus surgery. Chronicpain for spine pathology with oxycodone use oysterman. Additional doses of oxycodone not sufficient for her current pain. I have no mechanism to provide controlled substance at a distance. She will go to urgent care or emergency department if she continues to have urgent or emergent pain. Would be reasonable to provide additional 24 hours of a stronger pain medicine for this patient for the acute pain-exception that she is currently having. -Dr. Clemente Medley [place] documented in this encounter Plan of Treatment Not on filedocumented as of this encounter Visit Diagnoses Not on filedocumented in this encounter Additional Health Concerns Assessment Noted Time PHQ-9 Depression Total Score: 5 04/05/2019 8:00 AM CDT documented as of this encounter
--- OUTSIDE RECORDS SUMMARY | 2022-07-06 14:55 | XMS_ITS | Encounter Summary ---
:1965 Author Organization [facility] Address [address] [place] [address] Care Team Providers Name Role Phone Unavailable Primary Care Provider Unavailable Encounter Details Date Type Department Care Team Description 12/07/2019 Hospital Encounter [facility] OR Darlin Olmedo, [address] [facility] [place] [address] [address] [place] [address] [place] [address] Social History Tobacco Use Types Packs/Day [...] or relatives? How often do you attend tenriism or Patient refused 2021 presybeterian services? Do you belong to any clubs or No 05/17/2022 organizations such as tenriism groups, unions, fraternal or athletic groups, or [...] Sign Reading Time Taken Comments Blood Pressure 114/72 12/07/2019 3:30 PM COMMERCIAL ATTACHE Pulse 75 12/07/2019 4:25 PM COMMERCIAL ATTACHE Temperature 36.5 ??C (97.7 ??F) 12/07/2019 2:32 PM COMMERCIAL ATTACHE Respiratory Rate 15 12/07/2019 4:25 PM COMMERCIAL ATTACHE Oxygen Saturation 94% 12/07/2019 4:25 PM COMMERCIAL ATTACHE Inhaled Oxygen Concentration - - Weight - - Height - - Body Mass Index - - documented in this encounter Discharge Instructions Discharge InstructionsJey Santana [...] daily with a saline sinus rinse kit (suchas NeIron or [place]). - Follow the directions on the bottle [...] our clinic or with another department at [facility], an appointment willbe made for you. If you have not received specific details (date, time, location) within 2 weeks of discharge, please contact our office at [phone] to inquire. If you are to follow up somewhere other than [facility], please schedule this appointment (in the timeframe recommended by your surgeon)at your earliest convenience. CONTACT INFORMATION: If you need to reach the Department of ENT at the [facility] regarding any questions during normal business hours, please call . If you are calling after normal business hours and have a concern that needs to be addressed urgently, please call the [facility] Traffic Operations Manager at and ask to speak to the ENT resident social worker delinquency prevention. ERCIAL ATTACHE AttachmentsThe following attachments cannot be sent through Care Everywhere.Your Scopolamine Patch (Andorran)documented in this encounter Medications at Time of [...] Extradural computer navigation was registered according to quenching car operator's guidelines and confirmed to be accurate within [...] 5 mL Implants None Darlin Olmedo M.D. ERCIAL ATTACHE Brief Op Note - Jey Santana M.D. [...] Loss None Implants None Jey Santana M.D. ERCIAL ATTACHE documented in this encounter Plan of Treatment Not on filedocumented as of this encounter Procedures Procedure Name Priority Date/Time Associated Diagnosis Comme nts ADULT OXYGEN THERAPY Routine 12/07/2019 2:30 PM COMM[employer]CIAL ATTACHE EXTRADURAL COMPUTER 12/07/2019 12:13 PM Rhinosin usitis Chronic NAVIGATION [employer] ATTACHE Mucocele Nasal Sinus Case Notes WASH MILL OPERATOR 10:37 SINUSOTOMY ENDOSCOPY 12/07/2019 12:13 PM COMMERCIAL ATTACHE Rhi nosinusitis Chronic FRONTAL Mucocele Nasal Sinus Case Notes WASH MILL OPERATOR 10:37 documented in this encounter Visit Diagnoses Not on filedocumented in this encounter Administered Medications Inactive Administered Medications - up to 3 most recent administrations Medication Order MAR Action Action Date Dose Rate Site acetaminophen injection 1,000 New Bag 12/07/2019 2:38 PM 1,000 mg 400 mL/hr mg (OFIRMEV) COMMERCIAL ATTACHE 1,000 mg, intravenous, at 400 mL/hr, Administer [...] 1,000 mg (TYLENOL) Given 12/07/2019 12:06 PM COMMERCIAL ATTACHE 1,000 mg 1,000 mg, oral, Once, On Tue12/07/19 at 1200, For 1 dose, Pre-Op aprepitant capsule 40 mg (EMEND) Given 12/07/2019 12:06 PM COMMERCIAL ATTACHE 40 mg 40 mg, oral, Once as needed, prevent ponv, Starting on Tue12/07/19 at 1145, For 1 dose, Pre-Op caffeine tablet 200 mg Given 12/07/2019 12:06 PM COMMERCIAL ATTACHE 200 mg 200 mg, oral, Once as needed, pre-op to prevent caffeine withdrawal headache or to enhance emergence from anesthesia/sedation, Starting on Tue12/07/19 at 1145, For 1 dose, Pre-Op, With sips droperidol injection 0.625 mg (INAPSINE) Given 12/07/2019 2:37 PM COMMERCIAL ATTACHE 0.625 mg 0.625 mg, intravenous, Every 6 [...] 25 mcg (SUBLIMAZE) Given 12/07/2019 2:32 PM COMMERCIAL ATTACHE 25 mcg 25 mcg, intravenous, Every 2 min PRN, For pain 4 or greater (maximum 100 mcg). If max dose of Fentanyl is reached and if pain is greater than 4, discontinue Fentanyl: give Hydromorphone, Starting on Tue12/07/19 at 1145, Pre-Op ketamine injection 10 mg (KETALAR) Given 12/07/2019 2:37 PM COMMERCIAL ATTACHE 10 mg 10 mg, intravenous, Once as needed, Pain sedation mismatch AND RASS score less than -1, Starting on Tue12/07/19 at 1430, For 1 dose, PACU (only) lactated ringers New Bag 12/07/2019 3:48 PM COMMERCIAL ATTACHE 20 mL/hr 20 mL/hr 20 mL/hr, intravenous, Continuous, Starting on Tue12/07/19 at 1400, PACU & Post-Op Continued from OR 12/07/2019 2:25 PM COMMERCIAL ATTACHE 20 mL/hr 20 mL/hr metoprolol tablet 12.5 mg (LOPRESSOR) 12.5 mg, [...] 2 mg (VERSED) Given 12/07/2019 12:28 PM COMMERCIAL ATTACHE 2 mg 2 mg, intravenous, Once as needed, anxiety, sedation, Starting on Tue12/07/19 at 1145, For 1 dose, Pre-Op ondansetron ODT disintegrating tablet 4 mg Given 12/07/2019 12:0 7 PM COMMERCIAL ATTACHE 4 mg (ZOFRAN-ODT) 4 mg, sublingual, Once, On Tue12/07/19 at 1200, For 1 dose, Pre-Op, When splitting ODT at bedside, handle with gloves and a pill splitter to prevent moisture contact. scopolamine base 1 mg Medication Applied 12/07/2019 12:11 PM 1 patch Behind Right over 3 days 1 patch [employer]CIAL ATTACHE Ear (TRANSDERM SCOP) 1 patch, transdermal, Administer [...] Recently Administered Medications Times are shown in [employer]ERCIAL ATTACHE. Scheduled Medication Order 12/05/2019 12/06/2019 12/07/2019 acetaminophen [...] ondansetron ODT disintegrating tablet 4 mg (ZOFRAN-ODT) ([facility]) 1207 (Given - Provider: Steph Gallo [...] (COMPLETED) 1251 (Given - Provider: Gini Garcia, STAIN APPLICATOR, CRIMINAL JUSTICE INSTRUCTOR) 1,250 mg (rounded from 1,146 mg = [...] (Continued from OR - Provider: Jerica Uribe RRebekah. - Comment: bag level 300 cc)1548 (New Bag - Provider: Jerica Uribe RBrittonNBritton)1645 (Stopped - Provider: Jerica Uribe RBrittonNBritton) 20 mL/hr, intravenous, Continuous, Start ing on [...] (INAPSINE) 1437 (Given - Provider: Jerica Uribe R.N.) 0.625 mg, intravenous, Every 6 hours PRN [...] (SUBLIMAZE) 1432 (Given - Provider: Jey Hancock R.N.) 25 mcg, intravenous, Every 2 min [...] 1211 (Medication Applied - Provider: Steph Gallo R.N.)1647 (Due: Medication Removed - Provider: Discharge Provider, [...]
--- OUTSIDE RECORDS SUMMARY | 2022-07-06 14:55 | XMS_ITS | Encounter Summary ---
:1965 Author Organization [facility] Address [address] [place] [address] Care Team Providers Name Role Phone Unavailable Primary Care Provider Unavailable Encounter Details Date Type Department Care Team Description 12/07/2019 Ancillary Procedure Department of Otorhinolaryngology Social History [...] you attend voodoo or Patient refused 2021 orthodoxy services? Do [...] Date/Time Associated Comments Diagnosis OTORHINOLARYNGOLOGY IMAGE Routine 12/07/2019 12:15 Results for this EXAM PM OPERATIONS RESEARCH ENGINEER procedure are i n the results section. documented in this encounter Results NOSE-Otorhinolaryngology Image Exam (12/07/2019 12:15 PM OPERATIONS RESEARCH ENGINEER) Specimen (Source) Anatomical Collection Method Collection Time Re ceived Time Location / / Volume Laterality 12/07/2019 12:15 PM OPERATIONS RESEARCH ENGINEER Narrative [facility] - 12/07/2019 2:07 PM OPERATIONS RESEARCH ENGINEER This order has been created and auto-finalized [...]
--- OUTSIDE RECORDS SUMMARY | 2022-07-06 14:55 | XMS_ITS | Encounter Summary ---
:1965 Author Organization [facility] Address [address] [place] [address] Care Team Providers Name Role Phone Unavailable Primary Care Provider Unavailable Encounter Details Date Type Department Care Team Description 01/08/2020 Ancillary Procedure Department of Otorhinolaryngology Social History [...] you attend yazidi or Patient refused 2021 muslim services? Do [...] Date/Time Associated Comments Diagnosis OTORHINOLARYNGOLOGY IMAGE Routine 01/08/2020 3:15 Results for this EXAM PM CSR TECHNICIAN procedure are i n the results section. documented in this encounter Results NOSE-Otorhinolaryngology Image Exam (01/08/2020 3:15 PM CSR TECHNICIAN) Specimen (Source) Anatomical Collection Method Collection Time Re ceived Time Location / / Volume Laterality 01/08/2020 3:11 PM CSR TECHNICIAN Narrative [facility] - 01/08/2020 3:29 PM CSR TECHNICIAN This order has been created and auto-finalized [...]
--- OUTSIDE RECORDS SUMMARY | 2022-07-06 14:55 | XMS_ITS | Encounter Summary ---
:1965 Author Organization [facility] Address [address] [place] [address] Care Team Providers Name Role Phone Unavailable Primary Care Provider Unavailable Reason for Visit Reason Comments shyam Encounter Details Date Type Department Care Team Description 07/29/2020 Clinical Communication Department of Robert Diehl [id number]/[id number] in [place], [place] [address] [place] [address] [address] [place] [phone] [phone] Social History Tobacco Use Types Packs/Day Years [...] you attend jew or Patient refused 2021 baptist services? Do [...] Telephone Encounter - Monica Shah R.N. - 08/11/2020 2:[address] Fazal Machado is unable to order scans at a different facility. He has ordered MR neck and brain angiogram with and without IV contrast. If patient wishes to have them done locally, she will need her provider to order. Monica Jefferson Telephone Encounter - Jeannette Morrow - 08/06/2020 5:59 PM CDT Patient calls requesting recommendations for magnetic resonance angiogram be sent to [place]. José Miguel advise what the exact testing recommendation would be. Is magnetic resonance angiogram specific enough? Telephone Encounter - Robert Diehl M.D. - 08/01/2020 7:22 AM CDT Okay that is fine but I can not order those they are different Health System she can send CD to review Telephone Encounter - Robert Diehl M.D. - 07/30/2020 4:29 PM CDT Thank you for the message Can be either in person or video visit. I will order magnetic resonance angiogram documented in this encounter Plan of Treatment Not on filedocumented as of this encounter Visit Diagnoses Diagnosis Stroke (HCC) - Primary Headache Unspecified Thrombosis Arterial (HCC) documented in this encounter Additional Health Concerns Assessment Noted Time PHQ-9 Depression Total Score: 5 04/05/2019 8:00 AM CDT documented as of this encounter
--- OUTSIDE RECORDS SUMMARY | 2022-07-06 14:56 | XMS_ITS | Encounter Summary ---
:1965 Author Organization [facility] Address [address] [place] [address] Care Team Providers Name Role Phone Unavailable Primary Care Provider Unavailable Reason for Visit Reason Onset Date Comments Nicotine Dependence 04/26/2019 Encounter Details Date Type Department Care Team Description 04/26/2019 Clinical Department of Tesfaye Ortega, Nicotine Janet grady Communication Nicotine Kenna D, Dependence, Jordy Alex, [facility] in [place], [place] [address] [place] [address] Social History Tobacco Use Types Packs/Day Years [...] you attend mormon or Patient refused 2021 yazdanism services? Do [...] or slept in a alf (including now)? Sex Assigned at Date Recorded Female 03/01/2019 10:12 AM CDT documented as of this encounter Plan of Treatment Not on filedocumented as of this encounter Visit Diagnoses Not on filedocumented in this encounter Additional Health Concerns Assessment Noted Time PHQ-9 Depression Total Score: 5 04/05/2019 8:00 AM CDT documented as of this encounter
--- OUTSIDE RECORDS SUMMARY | 2022-07-06 14:56 | XMS_ITS | Encounter Summary ---
:1965 Author Organization [facility] Address [address] [place] [address] Care Team Providers Name Role Phone Unavailable Primary Care Provider Unavailable Reason for Visit Reason Onset Date Comments Nicotine Dependence 09/04/2019 Encounter Details Date Type Department Care Team Description 09/04/2019 Clinical Department of Tesfaye Ortega, Nicotine Janet grady Communication Nicotine Kenna D, Dependence, Jordy Alex, [facility] [place], [place] [address] [place] [address] Social History Tobacco Use Types Packs/Day Years [...] you attend anabaptist or Patient refused 2021 yarsanism services? Do [...] or slept in a halfway (including now)? Sex Assigned at Date Recorded Female 03/01/2019 10:12 AM CDT documented as of this encounter Plan of Treatment Not on filedocumented as of this encounter Visit Diagnoses Not on filedocumented in this encounter Additional Health Concerns Assessment Noted Time PHQ-9 Depression Total Score: 5 04/05/2019 8:00 AM CDT documented as of this encounter
--- OUTSIDE RECORDS SUMMARY | 2022-07-06 14:56 | XMS_ITS | Encounter Summary ---
:1965 Author Organization [facility] Address [address] [place] [id number] Care Team Providers Name Role Phone Unavailable Primary Care Provider Unavailable Encounter Details Date Type Department Care Team Description 04/04/2019 - Hospital Encounter [facility] Blanca, Stroke (H [facility]) (Primary Dx); 04/05/2019 [facility] Nan Salinas M.D. Decline Functional Status; [facility], [address] [place] [address] Second floor [id number] [place] [address] [place], [place] (Work) [phone] Social History Tobacco Use Types Packs/Day [...] you attend faith or Patient refused 2021 adventist services? Do [...] or slept in a [facility] (including now)? Sex Assigned at Date Recorded Female 03/01/2019 10:12 AM CDT documented as of this encounter Last Filed Vital Signs Vital Sign Reading Time Taken Comments Blood Pressure 126/71 04/05/2019 12:33 PM CDT Pulse 71 04/05/2019 1:08 PM CDT Temperature 36.8 ??C (98.24 ??F) 04/05/2019 12:36 PM CDT Respiratory Rate 12 04/05/2019 12:39 PM CDT Oxygen Saturation 93% 04/05/2019 12:36 PM CDT Inhaled Oxygen Concentration - - Weight - - Height 152 cm (4' 11.84) 04/04/2019 9:00 PM CDT Body Mass Index - - documented in this encounter Discharge Summaries Beau Hall M.D. - 04/05/2019 1:31 PM CDT DISCHARGE SUMMARY BRIEF OVERVIEW Discharge Provider: Nan Rios M.D. No primary care provider on file. Primary Care Provider Phone Number: None Primary Care Provider Fax Number: None Admission Date: 04/04/2019 Discharge Date: 04/05/19 PRIMARY DIAGNOSIS No Principal Problem: There is no principal problem currently on the Problem List. Please update theProblem List and refresh. SECONDARY DIAGNOSES Active Problems: Stroke (HCC) Resolved Problems: * No resolved hospital problems. * DISCHARGE DISPOSITION Home or Self Care [1] ACTIVE ISSUES REQUIRING FOLLOW UP - Discontinue enoxaparin shots as INR is now in therapeutic range (2-3). - Continue warfarin with goal INR 2-3. Continue to follow up with your primary care provider in [place], [place] for ongoing monitoring of this. - Follow-up in [facility] (Dr. Diehl) in approximately 3 months??? time with repeat CTA head/neck at that time. - Additional CTA in approximately 1 year (March 2020) to follow up paraclinoid ICA aneurysm. OUTPATIENT FOLLOW UP Future Appointments Date Time Provider Department Center 04/10/2019 2:15 PM Darlin Olmedo M.D. [facility] 06/28/2019 3:00 PM Robert Diehl M.D. [facility] TEST RESULTS PENDING AT DISCHARGE DETAILS OF HOSPITAL STAY REASON FOR ADMISSION Stroke (HCC) Stroke (HCC) HOSPITAL COURSE Ms. 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 Stroke workup at that time was notable for hemoglobin A1c 5.6, LDL 92. CTA head/neck revealed a 4 x 9 mm mobile partially occlusive thrombus in the distal right vertebral artery. DEVON was notable for normal left atrial size, no evidence of left atrial appendage thrombus, aortic valve strands deemed low risk for emboli, and patent foramen ovale. Given this, bilateral lower extremity ultrasound was obtained which was negative for any acute DVT. In the setting of the above workup, she was subsequently initiated on a low intensity heparin nomogram to bridge to warfarin with goal INR 2-3, with a heparin switched to subcutaneous enoxaparin prior to discharge. Plan at time of discharge was to repeat imaging in 3 months with CTA head/neck to ensure resolution of the vertebral artery thrombus and to follow up with Dr. Diehl. On the morning of 04/04/2019, she presented again with recurrence of her symptoms of occipital headache and vertigo but no additional new symptoms. On arrival, her examination was notable only for a right superior quadrantanopia (seen previously) and a possible mild left liliana sensory loss most notablewith temperature testing. CTA head/neck revealed no significant change compared with prior. CT head revealed no new intracranial abnormalities. INR by 04/05/2019 was therapeutic at 2. Given the stability on imaging, and no significant new symptoms with additional resolution of her vertigo, she will now be discharged home on warfarin at therapeutic INR level. Plan for follow-up will remain the same asduring her previous admission. Final NIHSS Score: 0 CONSULTS ORDERED DURING THIS ADMISSION IP CONSULT TO PHYSICAL MEDICINE & REHABILITATION CONDITION AT DISCHARGE stable Discharge instructions were provided to the patient and caregiver(s). documented in this encounter Discharge Instructions Discharge InstructionsBeau Hall M.D. - 04/05/2019 1:25 PM CDT HOSPITAL COURSE: Ms. 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 Stroke workup at that time was notable for hemoglobin A1c 5.6, LDL 92. CTA head/neck revealed a 4 x 9 mm mobile partially occlusive thrombus in the distal right vertebral artery. DEVON was notable for normal left atrial size, no evidence of left atrial appendage thrombus, aortic valve strands deemed low risk for emboli, and patent foramen ovale. Given this, bilateral lower extremity ultrasound was obtained which was negative for any acute DVT. In the setting of the above workup, she was subsequently initiated on a low intensity heparin nomogram to bridge to warfarin with goal INR 2-3, with a heparin switched to subcutaneous enoxaparin prior to discharge. Plan at time of discharge was to repeat imaging in 3 months with CTA head/neck to ensure resolution of the vertebral artery thrombus and to follow up with Dr. Dihel. ?? On the morning of 04/04/2019, she presented again with recurrence of her symptoms of occipital headache and vertigo but no additional new symptoms. On arrival, her examination was notable only for a right superior quadrantanopia (seen previously) and a possible mild left liliana sensory loss most notablewith temperature testing. CTA head/neck revealed no significant change compared with prior. CT head revealed no new intracranial abnormalities. INR by 04/05/2019 was therapeutic at 2. Given the stability on imaging, and no significant new symptoms with additional resolution of her vertigo, she will now be discharged home on warfarin at therapeutic INR level. Plan for follow-up will remain the same asduring her previous admission. RECOMMENDATIONS: - Discontinue enoxaparin shots as INR is now in therapeutic range (2-3). - Continue warfarin with goal INR 2-3. Continue to follow up with your primary care provider in [place], [place] for ongoing monitoring of this. - Follow-up in [facility] (Dr. Diehl) in approximately 3 months??? time with repeat CTA head/neck at that time. - Additional CTA in approximately 1 year (March 2020) to follow up paraclinoid ICA aneurysm. Discharge Instr - ActivityJessie Candelario P.T., D.P.T. - 04/05/2019 2:09 PM CDT Physical Therapy Discharge Summary MOBILITY RESTRICTIONS/PRECAUTIONS: Weight bearing: Weight bearing as tolerated Other: fall risk and other: visual changes CURRENT FUNCTIONAL STATUS: Patient currently independent in bed mobility. Mobilizing with supervision only on level surfaces with therapist managing bus monitor while inpatient. Stairs not assessed. RECOMMENDATIONS: Recommend initial supervision upon return to home. If difficulty with balance or mobility persists upon return to home, then recommend physical therapy evaluate and treat. Frequency and duration to be determined by the evaluating therapist. Will need to obtain a prescription for outpatient physical therapy from your physician. Discharge information provided on 04/05/2019 by Jessie Candelario P.T., D.P.T. Contact information: [facility], [address], Laquita Guardado - 04/05/2019 7:21 AM CDT Take a copy of this after visit summary to your appointment(s). [place], [place] April 10, 2019 -Tuesday --11:15 AM - Hospital Follow-Up with Dr. Rosalva MD Colleague of Juana Franz MD primary care provider, at [facility] RECOMMENDATIONS: * * [facility] You may have outpatient appointments at [facility] that changed during your hospitalization. Refer to your [facility] Patient Visit Guide (PVG) for the most current schedule of appointments and detailed instructions of tests/procedures. Call [phone], if you did not receive an PVG or need to CANCEL any [facility] appointment(s). You were discharged from the Neurology Stroke Service. Please Identify this service name if you callwith questions after your hospitalization. documented in this encounter Medications at Time [...] capsule mouth 2 (two) times a day. nicotine (NICOTROL) 10 mg Inhale 1 puff as 168 each 01/201904/29/2019 inhaler needed for smoking cessation. May use several puffs each hour as needed for cravings/withdrawl symptoms varenicline (CHANTIX) 1 mg Take 1 tablet (1 mg 60 tablet 5 03/30/2019 05/29/2019 tablet total) by mouth 2 (two) times a day. Take with full glass of water. albuterol (ACCUNEB) 2.5 mg Inhale 1 vial [...] BY MOUTH EVERY EIGHT HOURS atorvastatin (LIPITOR) 40 Take 1 tablet (40 30 tablet 11 02/201902/17/2021 mg tablet mg total) by mouth at bedtime. biotin 5 mg tablet Take 5 mg by mouth 0 02/02/2021 every morning. cyanocobalamin, vitamin Place 2,500 mcg 3 019 [...] 0 02/2709/12/2020 mg immediate release daily tablet potassium chloride Take 10 mEq by 0 [...] 6 (six) hours as needed for nausea. RESTASIS 0.05 % ophthalmic Administer 1 drop 0 02/02/2021 emulsion into both eyes 2 (two) times a day. SPIRIVA RESPIMAT 2.5 Inhale 2 puffs 0 01/09/2019 02/02/2021 mcg/actuation inhaler every morning. varenicline (CHANTIX JULIANE) Take by mouth 2 0 11/29/2019 0.5 mg (11)- 1 mg (42) (two) times a day. tablet Day 1 through 3: Take 0.5 mg by mouth daily. Day 4 through 7: Take 0.5 mg two times a day. Day 8 through end: Take 1 mg two times a day. varenicline (CHANTIX JULIANE) Use as directed on 53 tablet 0 09/12/2020 0.5 mg (11)- 1 mg (42) package tablet instructions, try to quit smoking after 1 week. warfarin (COUMADIN) 5 mg Take 1.5 tablets 0 04/0509/15/2020 tablet (7.5 mg total) by mouth daily. Per patient, dose increased to 1.5 tabs on Tuesday04/02/19 documented as of this encounter Progress Notes Beau Hall M.D. - 04/05/2019 1:03 PM CDT SUBJECTIVE Interval History: No acute overnight events. Vertigo has improved. Pewt-oz-zztlfjcu headache continues. No new symptoms or concerns. OBJECTIVE VITAL SIGNS Temperature: [36.4 ??C-36.8 ??C] 36.8 ??C Heart Rate: [54-125] 64 Resp Rate: [10-40] 12 Blood Pressure: (82-126)/(44-71) 126/71 SpO2: [93 %-97 %] 93 % Height: [152 cm] 152 cm Pulse Rate: [58-80] 64 NURSING ASSESSMENT: NIH Stroke Scale Level of Consciousness (1a.): Alert, keenly responsive LOC Questions (1b.): Answers both questions correctly LOC Commands (1c.): Performs both tasks correctly Best Gaze (2.): Normal Visual (3.): No visual loss Facial Palsy (4.): Normal symmetrical movements Motor Arm, Left (5a.): No drift Motor Arm, Right (5b.): No drift Motor Leg, Left (6a.): No drift Motor Leg, Right (6b.): No drift Limb Ataxia (7.): Absent Sensory (8.): Normal, no sensory loss Best Language (9.): No aphasia Dysarthria (10.): Normal Extinction and Inattention (11.) (Formerly Neglect): No abnormality NIHSS Total: 0 I/O / 0701 - /08 0700 / 07 - 04/05 0700 / 0701 - 04/06 0700 Crystalloid Bolus 2.5 Total Intake 2.5 Net +2.5 Unmeasured Urine Occurrence 2 x 2 x Unmeasured Emesis Occurrence 1 x PHYSICAL EXAM General: Resting comfortably in bed, in no acute distress. Cardiovascular: Regular rate and rhythm, no murmurs. Respiratory: Nonlabored respirations on room air, lungs clear to auscultation bilaterally. Abdomen: Soft, nontender, nondistended. Normoactive bowel sounds. Extremities: Numerous tattoos, no peripheral edema. Neurologic: Awake, alert, interactive. Normal language examination. She does have a homonymous rightsuperior quadrantanopia. EOMI. PERRLA. No other cranial nerve deficits. Full strength throughout in the bilateral upper and lower extremities, both proximally and distally. Normoactive reflexes throughout. Downgoing toes bilaterally. she does endorse a left hemianesthesia particularly with temperaturetesting. No ataxia. Normal, age-appropriate gait. ASSESSMENT / PLAN Ms. 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 Stroke workup at that time was notable for hemoglobin A1c 5.6, LDL 92. CTA head/neck revealed a 4 x 9 mm mobile partially occlusive thrombus in the distal right vertebral artery. DEVON was notable for normal left atrial size, no evidence of left atrial appendage thrombus, aortic valve strands deemed low risk for emboli, and patent foramen ovale. Given this, bilateral lower extremity ultrasound was obtained which was negative for any acute DVT. In the setting of the above workup, she was subsequently initiated on a low intensity heparin nomogram to bridge to warfarin with goal INR 2-3, with a heparin switched to subcutaneous enoxaparin prior to discharge. plan at time of discharge was to repeat imaging in 3 months with CTA head/neck to ensure resolution of the vertebral artery thrombus and to follow up with Dr. Diehl. On the morning of 04/04/2019, she presented again with recurrence of her symptoms of occipital headache and vertigo but no additional new symptoms. On arrival, her examination was notable only for a right superior quadrantanopia (seen previously) and a possible mild left liliana sensory loss most notablewith temperature testing. CTA head/neck revealed no significant change compared with prior. CT head revealed no new intracranial abnormalities. INR by 04/05/2019 was therapeutic at 2. Given the stability on imaging, and no significant new symptoms with additional resolution of her vertigo, she will now be discharged home on warfarin at therapeutic INR level. Plan for follow-up will remain the same asduring her previous admission. BILLING: #1 Stroke (HCC) Catalina Panchal, R.N. - 04/05/2019 12:27 PM CDT I attempted to meet with the patient. She was on the phone and did not appear to be finishing with the phone conversation soon. Medical team and nursing do not identify any homegoing needs. Home health care was mentioned, but she will not qualify. Medical service will explain this to the patient. Please contact Care Management if further needs arise. Will attempt to see patient at a later date and time if she continues to be hospitalized. Catalina Panchal R.N. - 04/05/2019 11:09 AM CDT Patient discussed at Stroke Multidisciplinary Rounds. Plan for the day: MRI, PT/OT Plan for the Stay: Stroke w/u Discharge barriers: Inpatient testing Recommended discharge disposition: Home with possible HHC Akash Torrez, Pharm.D., R.Ph. - 04/04/2019 7:58 PM CDT Warfarin Dosing Progress Note: More information: Angie Mosquera is a 53 y.o. female who was admitted to the hospital on 04/04/2019. Hospital Pharmacy has been consulted for inpatient warfarin management and monitoring. Warfarin Indication: Stroke/TIA Other indication (comments): Vertebral Artery Thrombosis Type of therapy: Resume Prior average daily dose: No Data Recorded Comorbidities: No known risk (s/p gastric bypass 1999 and redo 2006) Are any of these comorbidities new with admission? No Are there any new medication interactions with admission? No Target INR: 2 - 3 Day of therapy: 1 Drug interactions include the following: Strong Potentiator None Moderate Potentiators None Potentiating None Enzyme Inducers None Binders None Vitamin K-Containing Medications (168h ago through future) None Antiplatelets & Anticoagulants (168h ago through future) Start Dose/Rate Route Frequency Ordered Stop 04/04/19 1930 warfarin management (COUMADIN) oral Daily 04/04/19 1920 INR reversal agents were not given. Warfarin Reversal Agent Administrations (last 168 hours) Vitamin K, FFP, and K-Centra None Warfarin Administrations (last 168 hours) None INR (no units) Date Value Status 04/04/2019 1.8 Final 03/31/2019 1.0 Final 03/30/2019 1.0 Final 03/30/2019 1.0 Final A/P: Per patient, her INR is being followed by a provider at the [facility]. Dose was increased to 1.5 tabs (of 5 mg) on Monday 04/02. Her INR is 1.8 today. Will continue 7.5 mg tonight. Pharmacist team will continue to follow patient's clinical progress daily until discharge from the hospital. Coby Limon Pharm.D., R.Ph. documented in this encounter H&P Notes Nan Rios M.D. - 04/05/2019 1:42 PM CDT .. SUBJECTIVE CHIEF COMPLAINT / REASON FOR VISIT Stroke/TIA HISTORY OF PRESENT ILLNESS Ms.??Angie Mosquera??is a 53 y.o.??female??with PMH including gastric bypass surgery (1999) with laparoscopic redo (2006), chronic esophageal spasm and dysmotility, recurrent sinus infections, bilateral occipital neuralgia, cervical spondylosis s/p fusion, chronic pain syndrome, fibromyalgia, and nicotine use who presented on 03/29/2019??with acute onset vertigo symptoms, found to have bilateral acute cerebellar/occipital infarcts on outside MRI. MRI/MRA head showed multiple foci of restricted diffusion in bilateral cerebellum and occipital lobes consistent with posterior circulation acute infarcts, likely embolic. 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 Subsequent CT head/CTA head and neck showed a 4x9 mm mobile partially occlusive thrombus in the distal R vertebral artery. She was subsequently started on a low-intensity heparin nomogram to bridge to warfarin with goal INR 2-3, with the heparin switched to enoxaparin prior to discharge. She returned yesterday due to recurrent head pain and vertigo. CT negative. INR 1.6 yesterday and 2.0 today. Has been compliant with heparin. Back to normal today. Risk Factors - BP: BP 126/71 (BP Location: Right arm;Upper, Patient Position: Sitting) - Cholesterol: 204/91/92/104 TG - A1C: 5.6 - JUDY: no - Tobacco: . reports that she has been smoking. She has never used smokeless tobacco. - BMI: Body mass index is 31.42 kg/m??. Active Ambulatory Problems Diagnosis Date Noted ??? Rhinosinusitis Chronic 03/01/2019 ??? Stroke ([facility]) 03/29/2019 ??? Anxiety Generalized Disorder 03/29/2019 ??? Chronic Pain Syndrome 03/29/2019 ??? Fibromyalgia 03/29/2019 ??? 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 Sinusitis Recurrent 03/29/2019 ??? 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 Nicotine Dependence Cigarettes 03/29/2019 ??? Thrombosis Arterial ([facility]) 03/29/2019 ??? Transient Ischemic Attack ??? Aneurysm Cerebral Unruptured ([facility]) 03/30/2019 ??? Patent Foramen Ovale ([facility]) 03/31/2019 Current Facility-Administered Medications: ??? acetaminophen tablet 1,000 mg (TYLENOL), 1,000 mg, oral, Q6H, Beau aHll M.D., 1,000 mg at 04/05/19 0831 ??? albuterol 90 mcg/actuation inhaler 2 puff (PROVENTIL HFA,VENTOLIN HFA), 2 puff, inhalation, Q6H PRN, Clemente Aiken M.D. ??? albuterol nebulizer solution 2.5 mg (ACCUNEB), 2.5 mg, nebulization, Q6H PRN, Clemente Aiken M.D. ??? alum-mag hydroxide-simeth 200-200-20 mg/5 mL suspension 30 mL (MAALOX), 30 mL, oral, Q4H PRN, Clemente Aiken M.D. ??? atorvastatin tablet 40 mg (LIPITOR), 40 mg, oral, Daily at bedtime, Clemente Aiken M.D., 40mg at 04/04/192157 ??? benzonatate capsule 200 mg (TESSALON PERLES), 200 mg, oral, TID PRN, Clemente Aiken M.D. ??? cetirizine tablet 10 mg (ZyrTEC), 10 mg, oral, BID, Clemente Aiken M.D., 10 mg at 04/05/19 0841 ??? cycloSPORINE 0.05 % ophthalmic emulsion 1 drop (RESTASIS), 1 drop, both eyes, BID, Clemente Aiken M.D., 1 drop at 04/05/19 0848 ??? diazePAM tablet 10 mg (VALIUM), 10 mg, oral, BID PRN, Beau Hall M.D. ??? diphenhydrAMINE capsule 25 mg (BENADRYL), 25 mg, oral, At bedtime PRN, Clemente Aiken M.D. ??? enoxaparin injection 70 mg (LOVENOX), 70 mg, subcutaneous, BID, Clemente Aiken M.D., 70 mg at 04/05/19 0850 ??? FLUoxetine capsule 60 mg (PROzac), 60 mg, oral, Daily, Clemente Aiken M.D., 60 mg at ??? fluticasone furoate-vilanterol 100-25 mcg/actuation inhaler 1 puff (BREO ELLIPTA DISKUS), 1 puff, inhalation, Daily, Clemente Aiken M.D., 1 puff at 04/05/19 0934 ??? fluticasone propionate 50 mcg/actuation nasal spray 2 spray (FLONASE), 2 spray, each nostril, Daily at bedtime, Clemente Aiken M.D., 2 spray at 04/04/199 ??? folic acid tablet 800 mcg, 800 mcg, oral, Daily, Clemente Aiken M.D., 800 mcg at 04/05/19 0832 ??? furosemide tablet 40 mg (LASIX), 40 mg, oral, BID, Clemente Aiken M.D., 40 mg at 04/05/19 ??? lamoTRIgine tablet 200 mg (LaMICtal), 200 mg, oral, BID, Clemente Aiken M.D., 200 mg at ??? lidocaine 5 % 1 patch (LIDODERM), 1 patch, transdermal, Daily, Clemente Aiken M.D., 1 patch ??? LORazepam tablet 0.5 mg (ATIVAN), 0.5 mg, oral, TID PRN, Clemente Aiken M.D. ??? naloxone injection 0.2 mg (NARCAN), 0.2 mg, intravenous, PRN, Clemente Aiken M.D. ??? nicotine 10 mg inhaler 1 puff (NICOTROL), 1 puff, inhalation, PRN, Clemente Aiken M.D. ??? nicotine 14 mg/24 hr 1 patch (NICODERM CQ), 1 patch, transdermal, Daily, Clemente Aiken, ??? ondansetron ODT disintegrating tablet 4 mg (ZOFRAN-ODT), 4 mg, oral, Q8H PRN, Abarbanel, . ??? oxyCODONE IR tablet 10 mg (ROXICODONE), 10 mg, oral, Q6H PRN, Beau Hall M.D., 10 ??? oxyCODONE IR tablet 5 mg (ROXICODONE), 5 mg, oral, 5x Daily, Clemente Aiken M.D., 5 mg ??? pantoprazole DR tablet 40 mg (PROTONIX), 40 mg, oral, Daily before breakfast, Clemente Aiken ??? polyethylene glycol powder packet 17 g (MIRALAX), 17 g, oral, At bedtime PRN, Clemente Aiken, ??? pregabalin capsule 150 mg (LYRICA), 150 mg, oral, Daily, Clemente Aiken M.D., 150 mg at ??? pregabalin capsule 450 mg (LYRICA), 450 mg, oral, Daily at bedtime, Clemente Aiken M.D., 450 ??? promethazine tablet 25 mg (PHENERGAN), 25 mg, oral, Q6H PRN, Clemente Aiken M.D. ??? tiotropium 2.5 mcg/actuation inhaler 2 puff, 2 puff, inhalation, Daily, Clemente Aiken M.D., 2 puff ??? tiZANidine tablet 2 mg (ZANAFLEX), 2 mg, oral, Q8H PRN, Clemente Aiken M.D., 2 mg at ??? warfarin management (COUMADIN), , oral, Daily, Clemente Aiken M.D. ??? warfarin tablet 7.5 mg (COUMADIN), 7.5 mg, oral, Once, Popeye Neil, R.Ph. ??? zonisamide capsule 300 mg (ZONEGRAN), 300 mg, oral, BID, Clemente Aiken M.D., 300 mg at REVIEW OF SYSTEMS OBJECTIVE EOMI, PERRL. No nystagmus. Face symmetric. Strength normal. ASSESSMENT / PLAN #1 Prior Ischemic Stroke #2 TIA versus new stroke Fortunately patient is improved back to her baseline. Repeat CT angiogram shows no new changes. MRI may not change management specialist at this point as she is now therapeutic on warfarin. Prior stroke work up included hypercoaguable labs and DEVON. #2 Risk Factors - Addressed during prior visit. On a statin. #3 Functional status Back to baseline. Follow-up:Planned with Dr. Diehl regarding vertebral thrombus and intracranial aneurysm Call sooner if: New signs/symptoms of ischemic stroke Discussed my impression and plan with patient. Answered questions. [id number] Clemente Aiken M.D. - 04/04/2019 9:53 PM CDT SUBJECTIVE CHIEF COMPLAINT Angie Mosquera is a 53 y.o. female who presents with headache and dizziness. HISTORY OF PRESENT ILLNESS The history is obtained from patient interview and review of records from her recent admission: Ms.??Angie Mosquera??is a 53 y.o.??female??with PMH including gastric bypass surgery (1999) with laparoscopic redo (2006), chronic esophageal spasm and dysmotility, recurrent sinus infections, bilateral occipital neuralgia, cervical spondylosis s/p fusion, chronic pain syndrome, fibromyalgia, and nicotine use who presented on 03/29/2019??with acute onset vertigo symptoms, found to have bilateral acute cerebellar/occipital infarcts on outside MRI. She reports that she woke up on 03/29/2019 at 5:45 am with balance problems and subsequent headache approximately 45 min later. She felt room was tilting and had difficulty walking. MRI/MRA head showed multiple foci of restricted diffusion in bilateral cerebellum and occipital lobes consistent with posterior circulation acute infarcts, likely embolic. 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 In the ED, CT head/CTA head and neck showed a 4x9 mm mobile partially occlusive thrombus in the distal R vertebral artery. She was subsequently started on a low-intensity heparin nomogram to bridge to warfarin with goal INR 2-3, with the heparin switched to enoxaparin prior to discharge. DEVON was notable for normal left atrial size, no evidence of left atrial appendage thrombus, aortic valve strands deemed low risk for emboli, and patent foramen ovale. Given this, lower extremity US was obtained, which was negative for DVTs. Ultimately, she was discharged in stable condition on 03/31 on a statin and enoxaparin to bridge to warfarin (goal INR 2-3). This morning she experienced recurrence of her vertigo and developed a headache radiating from the occipital region to the top of the head that felt identical to the headache she developed on 03/29/2019. She denies any new symptoms such as diplopia, facial droop, hemibody weakness, dysarthria, or dysphagia. She does not believe that the headache came on in a thunderclap manner. She presented to an outside emergency department and had a CT head that showed no bleed or new hypodensity. She was subsequently transferred here. She reports that she has been taking her warfarin as prescribed and using the Lovenox injections as she was taught. On arrival her INR was 1.8. Her anti Xa level was low, though this was expected due to it being far from her morning dose. REVIEW OF SYSTEMS Pertinent items are noted in HPI; all other review of systems was negative. OBJECTIVE VITAL SIGNS Temperature: [36.5 ??C-36.8 ??C] 36.8 ??C Heart Rate: [71-73] 71 Resp Rate: [12-19] 17 Blood Pressure: (82-111)/(44-62) 98/54 SpO2: [93 %-96 %] 96 % Pulse Rate: [58-72] 72 PHYSICAL EXAM General: Lying in bed, no severe distress HEENT: Numerous tattoos and piercings Cardiovascular: Normal rate, regular rhythm Extremities: Numerous tattoos Neurologic: Alert, interactive, oriented. Normal language examination. Eye movements conjugate and full. Pupils equal and reactive. No nystagmus in any gaze direction. Homonymous right superior quadrantanopsia. Nodysarthria. She does endorse a left hemianesthesia most noticeable with temperature testing. Strength is 0 and symmetric in all muscle groups. Xdceat-mltw-xhnydr and heel- montes testing is normal. Deep tendon reflexes are mildly increased in the upper extremities symmetrically and normal in the lower extremities. Her gait is steady. STROKE DOCUMENTATION: Stroke Center Measures: Did this patient have a possible stroke/TIA/hemorrhage?: Yes Type of stroke: Ischemic stroke/Transient ischemic attack Date of NIHSS completed: 04/04/2019 Time of NIHSS completed: 15:45 Admission NIHSS total score: 2 Date patient last known well: 04/04/2019 Time patient last known well: 11:00 Onset of symptoms - date: 04/04/2019 Onset of symptoms - time: 11:00 IV Alteplase candidate?: No Reason not a candidate: Mild/improving symptoms Intra-arterial candidate for intervention?: No Reason not a candidate: Not performed due to mild/improving symptoms Patient admitted solely for an elective carotid intervention: No Antithrombotic started on admission: Not started due to hemorrhage and/or hemorrhagic risk Dysphagia screen performed before oral intake or any p.o. medication given: Performed and patient passed, oral intake initiated Screen date completed: 04/04/2019 Screen time completed: 15:45 Physical Medicine (PMR) consulted: Consulted and will evaluate the patient Speech therapy consulted to evaluate patient: Not consulted because no speech/language deficits Pharmacologic VTE prophylaxis: not instituted because of contraindication Contraindication for pharmacologic VTE prophylaxis: medically contraindicated Tobacco use: Does not use tobacco Fasting lipids performed: Not necessary on this patient Patient on lipid-lowering agent prior to arrival?: Yes Relevant cerebrovascular risk factors: Tobacco use, hyperlipidemia and obesity ASSESSMENT / PLAN #1 Stroke (HCC) .??Angie Mosquera??is a 53 y.o.??female??with PMH including gastric bypass surgery (1999) with laparoscopic redo (2006), chronic esophageal spasm and dysmotility, recurrent sinus infections, bilateral occipital neuralgia, cervical spondylosis s/p fusion, chronic pain syndrome, fibromyalgia, and nicotine use who presented on 03/29/2019??with acute onset vertigo symptoms, found to have bilateral acute cerebellar/occipital infarcts on outside MRI. She presented today with recurrence of her symptoms of occipital headache and vertigo that prompted her initial evaluation and identification of strokes in the posterior circulation. She denies any newsymptoms. On arrival her examination was notable only for a right superior quadrant anopsia and mild left hemisensory loss most notable with temperature testing. Laboratory testing revealed INR 1.8 and anti Xa level of 0.81. A CT angiogram was obtained on arrival that showed no significant change. Based on this, her anticoagulation regimen will be continued with the current doses of Lovenox and warfarin dosed per pharmacy protocol. She will be continued on Lovenox at least until her INR is therapeutic, depending on the duration of overlap that is required in this case. The new liliana sensory loss does raise concern for a new stroke, presumably in the right thalamus which would account for the hemibody sensory loss and would fit in the expected territory of her known thrombus. An MRI would be helpful to clarify this, but would not necessarily change management specialist. An MRI brain with and without contrast will be obtained, with the goal of the contrast being to capture a subacute infarct. Summary of Plan: --MRI brain with and without --Contact pain service to interrogate device if MRI to be performed tomorrow --Continue Warfarin per pharmacy protocol --Continue Lovenox injections as previously planned # Stroke (HCC) # Thrombosis Arterial (HCC), Right Vertebral Artery # Patent Foramen Ovale (HCC) # Aneurysm Cerebral Unruptured (HCC), ICA Aneurysm # Nicotine Dependence Cigarettes --Continue atorvastatin 40 qhs --Continue enoxaparin 70 mg BID bridge to warfarin with INR goal 2-3. --Will need outpatient follow up imaging (CTA in 1 year) for her left ICA aneurysm --Continue nicotine replacement --PMR/OT/PT??Brain Rehabilitation consult ?? # Anxiety Generalized Disorder # Chronic Pain Syndrome # Fibromyalgia # Gastric Bypass Status Post # Esophageal Motility Disorder # Sinusitis Recurrent # Cervical Spine Disorder # Fusion Cervical Spine Status Post --Continue home meds, appreciate pharmacy's help with med rec ?? Diet: general, passed bedside dysphagia evaluation on arrival on 04/04/19 Tubes/lines: PIV VTE prophylaxis: therapeutic anticoagulation Code status: Full Code Clemente Schneider M.D. - 04/04/2019 6:53 PM CDT SUBJECTIVE CHIEF COMPLAINT Angie Mosquera is a 53 y.o. female who presents with new onset left-sided headache, with new difficulty walking, and decreased sensation on the left side of her face and body. HISTORY OF PRESENT ILLNESS This is a supervisory note for Dr. Aiken, please see his documentation for further details. The patient was recently admitted to the Stroke service and discharged on March 31 after having been found to have bilateral acute cerebellar and occipital infarcts with a partially occlusive right vertebral artery thrombus, started on warfarin with enoxaparin bridge, who returns to the hospital today for new onset symptoms that she describes as a sudden onset right headache, some difficulty with walking, left-sided face and body weakness as well as decreased sensation on the left face in left hemibody. OBJECTIVE VITAL SIGNS Temperature: [36.5 ??C] 36.5 ??C Resp Rate: [12] 12 Blood Pressure: (111)/(62) 111/62 SpO2: [93 %] 93 % Pulse Rate: [58] 58 PHYSICAL EXAM She is awake and interactive, in no acute distress, able to discuss a linear timeline of her symptoms today, no obvious aphasia or dysarthria EOM appear intact, pupils are round and reactive to light bilaterally, there is no facial asymmetry,protrudes tongue midline. On motor exam, there is no plantar drift, and is able to hold up all extremities against gravity without difficulty. Reflexes are normal and symmetric in the patellar tendons bilaterally, plantar response is flexor bilaterally. No signs of ataxia on FNF and heel to montes Sensory exam was notable to -1 sensation on the left hemibody Stroke Documentation ASSESSMENT / PLAN #1 Stroke (HCC) #2 headache #3 left sided sensory changes #4 anticoagulation Angie Mosquera is a 53 y.o. woman who returns to the stroke service with new symptoms of headache, unsteady gait, left sided decreased sensation and subjective left facial weakness, in the context of a recent bilateral acute cerebellar and occipital infarcts with a partially occlusive right vertebral artery thrombus. At this time her symptoms are certainly concerning for new small ischemic infarcts, that may be related to clot instability or enlargement. Other differential includes complex migraine, but given her recent stroke and thrombus, this is most likely an ischemic event. Concern for hemorrhagic conversion of recent strokes is low. Fortunately her exam shows only mild deficits. I agree with Dr. Aiken to obtain CTA to reimage clot for any sign of progression, as well as checking her anticoagulation status with INR and anti- Xa. If the clot is stable we will plan to continuewith current anticoagulation plan and clinically monitor overnight; if clot shows enlargement with sub- therapeutic INR, we will likely go towards a therapeutic heparin infusion until we are at goal with INR. documented in this encounter Consult Notes Clemente Mcwilliams M.D. - 04/05/2019 2:29 PM CDTAssociated Order(s): IP CONSULT TO PHYSICAL MEDICINE & REHABILITATION Consult received for Physical Medicine and Rehabilitation Consult Service. I reviewed the electronic health record. Dr. Rios's note of this afternoon indicates that the patient is improved back to her baseline. Have triaged to therapy only; no stage director consult appears to be necessary at this time. If at any time, the therapists or referring service feel that a stage director review is necessary, please send a new consult request with only the Physician consult - Physical Medicine and Rehabilitation consult (hospital) item selected. Carley Dumont M.S., O.T. - 04/05/2019 1:31 PM CDT Occupational Therapy Acute Hospital Inpatient Evaluation/Treatment SUBJECTIVE Patient's Name: Angie Mosquera Referring/Attending Provider: Nan Rios M.D. Medical Diagnosis: Stroke (HCC) [I63.9] Stroke (HCC) [I63.9] Reason for Referral: OT to evaluate and treat History of Present Illness: returns to the stroke service with new symptoms of headache, unsteady gait, left sided decreased sensation and subjective left facial weakness, in the context of a recent bilateral acute cerebellar and occipital infarcts with a partially occlusive right vertebral artery thrombus. Onset Date: 04/04/19 Payor: MEDICARE / Plan: MEDICARE A AND [...] Unruptured (HCC) ??? Patent Foramen Ovale (HCC) Past Surgical History: Procedure Laterality Date ??? BACK SURGERY ??? BARIATRIC SURGERY ??? CARPAL TUNNEL RELEASE ??? CHOLECYSTECTOMY ??? HYSTERECTOMY ??? KNEE ARTHROPLASTY ??? OTHER CONVERTED SHX (SEE COMMENT) N/A 05/21/2008 >Esophagogastroduodenoscopy with biopsy and dilation. ??? SHOULDER SURGERY Angie Mosquera is a 53 y.o. female who is referred to occupational therapy for evaluation. See Hospital Admission History and Physical for full history. Precautions Other Precautions: fall risk Occupational Profile: Prior Function / Occupational Profile Level of [place]: Independent with ADLs and functional transfers Lives With: Alone Receives Help From: Friend(s), Family ADL Assistance: Independent Homemaking Assistance: Modified independent Occupational Role: Unemployed Home Living Type of Home: Apartment Home Layout: One level Bathroom Shower/Tub: Tub/shower unit Bathroom Toilet: Standard Home Equipment Gait Devices : Walker rolling or standard, Cane Bathroom Equipment: None Family/Caregiver Present: No Patient/Caregiver Goals: To return home with support Patient Comments: Patient agreeable to occupational therapy upon entry into room Dominant Hand: Right OBJECTIVE Pain Assessment Pain Assessment: 0-10 Numeric Pain Intensity Scale Pain Score: 7 Pain Location: Head Treatment today consisted of: Therapist facilitated patient bathroom safety education with provided recommendations of adaptive equipment Including grab bars and tub bath bench. Patient endorses education. All questions pertaining to education have been answered prior to dismissal. Assessment Clinical Impression: Patient is progressing well with ADL's and mobility. Anticipate safe discharge to home with assistance from son and family friend. . ?Daytime check-ins: : Patient does not need help with mobility or ADLs but requires extra effort , extra time to complete tasks. Caregiver needs to provide reminders to ensure tasks are complete, may need to provide assistance with tasks occurring outside the home. Patient knows how to get help if/when needed. Caregiver help may be in person or via phone typically 1-2 times/day; primarily for cognitive support. ?? Rehab Potential: Ms. Mosquera has Good potential to achieve established occupational therapy goals within the time frame outlined below. Discharge Recommendation: Intermittent supervision Recommended Adaptive Equipment OT: Grab bars, Transfer tub bench, Shower chair Functional Goals and Timeframes: OT Goal #1: Patient will be educated on bathroom safety and demonstrate understanding on adaptive equipment educational handout- Goal Met 04/05/19 Progress: Improving as expected @[id number])@ Plan Patient agrees with the plan of care and goals. Treatment Plan: OT Frequency: One-time visit OT Duration: untill goals are met or hospital dismissal Plan: Plan of care initiated Treatment interventions may include: Self-care/home management, Therapeutic functional activity Occupational Profile and History review: Brief Personal Factors: None Performance Deficits: 1 - 3 performance deficits Evaluation Complexity: Low Time Spent with Patient OT Evaluation (min): 20 min Home Management Training (min): 10 min Time Calculation Total Timed Units (min): 10 min Total Treatment Time (min): 30 min Arin Dumont M.S., O.T. Jessie Candelario P.T., D.P.T. - 04/05/2019 1:03 PM CDT Physical Therapy Acute Hospital Inpatient Evaluation/Treatment SUBJECTIVE Patient's Name: Angie Mosquera Referring/Attending Provider: Nan Rios M.D. Reason for Referral: PT to evaluate and treat History of Present Illness: returns to the stroke service with new symptoms of headache, unsteady gait, left sided decreased sensation and subjective left facial weakness, in the context of a recent bilateral acute cerebellar and occipital infarcts (03/29/19) with a partially occlusive right vertebral artery thrombus. Medical Diagnosis: 1. Stroke (HCC) 2. Decline Functional Status Onset Date: 04/04/19 Payor: MEDICARE / Plan: MEDICARE A AND [...] Unruptured (HCC) ??? Patent Foramen Ovale (HCC) Past Surgical History: Procedure Laterality Date ??? BACK SURGERY ??? BARIATRIC SURGERY ??? CARPAL TUNNEL RELEASE ??? CHOLECYSTECTOMY ??? HYSTERECTOMY ??? KNEE ARTHROPLASTY ??? OTHER CONVERTED SHX (SEE COMMENT) N/A 05/21/2008 >Esophagogastroduodenoscopy with biopsy and dilation. ??? SHOULDER SURGERY Angie Mosquera is a 53 y.o. female who is referred to physical therapy for evaluation. See Hospital Admission History and Physical for full history of present illness. Patient/Caregiver Goals: To return home with support Patient Comments: Patient today presented sitting upright in bed. Reporting neck pain, pointing primarily to base of skull on left, stating at times it spikes up to >10/10. Also reports other chronic pain. Willing to participate. Has cardiac monitoring in place. Precautions Other Precautions: fall risk Prior Level of Function: Prior Function / Occupational Profile Level of [place]: Independent with ADLs and functional transfers Lives With: Alone Receives Help From: Friend(s), Family ADL Assistance: Independent Homemaking Assistance: Modified independent Driving: Independent Occupational Role: Unemployed Dominant Hand: Right Home Equipment Gait Devices : Cane, Walker rolling or standard (four-wheeled walker ) Bathroom Equipment: None Home Living Type of Home: Apartment Home Layout: One level Home Access: Level entry Bathroom Shower/Tub: Tub/shower unit Bathroom Toilet: Standard OBJECTIVE Fall Risk (65 and older) Fall in the last 12 months: No Physical status: Vision-Basic Assessment Current Vision: Other (Comment) (Pateint reports some visual changes, indicating she is not seeing as well in her superior visual field on the left. States vision changes had resolved following previous stay last week. ) Activity Tolerance Endurance: Endurance does not limit participation in activity Sitting Tolerance: Good Standing Tolerance: good Cognition: Bed Mobility/Transfers: Bed Mobility Bed Mobility: Yes Bed Mobility - Supine to Sit Level of Assistance: Independent Transfers Transfer: Yes Transfer - Bed, Chair, Wheelchair # of Assistants: 1 Method: Stand pivot Device: none Level of Assistance: Modified Independent Comments: modified independend for mild safety concern, as patient reports intermittant dizziness ROM/Strength General ROM / Strength Screening ROM - Upper Extremity Screen: Impaired left (decrease in left shoulder end range, history of shoulder surgery and replacement) ROM - Lower Extremity Screen: Addressed, no concerns noted Strength - Upper Extremity Screen: Impaired left (Unable to hold against more than mild resistance to due shoulder pain on left ) Strength - Lower Extremity Screen: Impaired left (unable to fully manual muscle test left lower extremity due to reports of painl) Gait/Stair/WC: Gait Assessment # of Assistants: 1 Level of Assistance: Supervision/Set-up Device: None Distance (m): 200 m Surface: hard, level Assessment of Gait: supervision for safety and for therapist to bring bus monitor, no obvious loss of balance noted, patient appeared steady with quick turns Training/Intervention: supervision for therapist to bring bus monitor Response: Patient mobilizing 200+ meters with no instability noted, however patient reports she feels occaionally mildly unsteady and indicates she is not quite back to her baseline. Balance: Static Sitting-Balance: Good (Maintains balance without support) Dynamic Sitting-Balance: Good (Maintains balance without support) Static Standing-Balance: Good (Maintains balance without support) Dynamic Standing-Balance: Good (Maintains balance without support) Neurology: Sensation Light Touch: (intact to testing on upper extremities and lower extremities. Patient does report decreased sensation and tingling in left face, as well as subjectively in left upper extremity ) Vision-Basic Assessment Current Vision: Other (Comment) (Pateint reports some visual changes, indicating she is not seeing as well in her superior visual field on the left. States vision changes had resolved following previous stay last week. ) Treatment: Bed Mobility - Supine to Sit Level of Assistance: Independent Transfer - Bed, Chair, Wheelchair # of Assistants: 1 Method: Stand pivot Device: none Level of Assistance: Modified Independent Comments: modified independend for mild safety concern, as patient reports intermittant dizziness Gait Assessment # of Assistants: 1 Level of Assistance: Supervision/Set-up Device: None Distance (m): 200 m Surface: hard, level Assessment of Gait: supervision for safety and for therapist to bring bus monitor, no obvious loss of balance noted, patient appeared steady with quick turns Training/Intervention: supervision for therapist to bring bus monitor Response: Patient mobilizing 200+ meters with no instability noted, however patient reports she feels occaionally mildly unsteady and indicates she is not quite back to her baseline. Assessment Clinical Impression: Patient's primary complaint at this time is headache and neck pain. Does report some continued visual changes, decreased sensation on her left face and upper extremity, and reports not feeling back to baseline with her gait, however no loss of balance noted at this time. Patient does report having a cane and front wheeled walker at home. Patient reports she has social support such that someone can bewith her initially upon discharge to home. Will not plan on outpatient physical therapy at this time, however if difficulty with balance or mobility persists following discharge, patient may benefit from ongoing outpatient physical therapy. Rehab Potential: Ms. Mosquera has Excellent potential to achieve established physical therapy goals within the time frame outlined below. Barriers to Discharge: Decreased caregiver support Discharge Recommendation: Intermittent supervision Functional Goals and Timeframes: PT Inpatient Goals PT Goal #1: Independent with transfers/ambulation without a gait aid 200 m. PT Goal #1 Date: 04/12/19 PT Goal #2: Up/down 4-6 stairs with railing and supervision as appropriate. PT Goal #2 Date: 04/12/19 Plan Patient agrees with the plan of care and goals. Treatment Plan: Frequency: Other (Comment) (1-3 visits if patient remains in hospital ) Duration: Patient discharging to home this afternoon. Plan: Treatment interventions may include: Therapeutic exercise, Therapeutic functional activity, Neuromuscular re- education, Gait training Clinical Presentation: Stable Number of Examination Elements:3 Clinical Decision Making: Low: no complicating factors, 1-2 eval elements, stable clinical presentation Time Spent with Patient PT Evaluation (min): 18 min Therapeutic Activity (min): 15 min Total Timed Units (min): 15 min Total Treatment Time (min): 33 min Functional G-code Worksheet Jessie Candelario P.T., NeriP.TBritton documented in this encounter Nursing Notes Dia Stafford R.N. - 04/05/2019 2:45 PM CDT Pt adequate for discharge. IVs were removed. Education was complete with no further questions at this time. AVS reviewed with patient. Nicotine patch and lidocaine patch removed prior to discharge. Escort called. Prescriptions sent to home pharmacy. Beryl Cleary R.N. - 04/05/2019 4:45 AM CDT PAIN - ADULT ??? PT VERBALIZES/DEMONSTRATES ADEQUATE COMFORT LEVEL OR BASELINE Progressing SAFETY ADULT ??? Maintain a safe environment Progressing SAFETY ADULT - RISK FOR FALL AND OR FALL INJURY ??? Patient remains free from fall/fall injury Progressing Shift Goals: free from falls and pain control Identify possible barriers to meeting goals/advancing plan of care: none End of Shift Summary: She uses the call light when she wants to get up. She is easily up with 1 assist. Pain meds have helped her relax and be able to sleep. documented in this encounter Miscellaneous Notes Hospital Course - Beau Hall M.D. - 04/05/2019 1:24 PM CDT Ms. 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 Stroke workup at that time was notable for hemoglobin A1c 5.6, LDL 92. CTA head/neck revealed a 4 x 9 mm mobile partially occlusive thrombus in the distal right vertebral artery. DEVON was notable for normal left atrial size, no evidence of left atrial appendage thrombus, aortic valve strands deemed low risk for emboli, and patent foramen ovale. Given this, bilateral lower extremity ultrasound was obtained which was negative for any acute DVT. In the setting of the above workup, she was subsequently initiated on a low intensity heparin nomogram to bridge to warfarin with goal INR 2-3, with a heparin switched to subcutaneous enoxaparin prior to discharge. Plan at time of discharge was to repeat imaging in 3 months with CTA head/neck to ensure resolution of the vertebral artery thrombus and to follow up with Dr. Diehl. On the morning of 04/04/2019, she presented again with recurrence of her symptoms of occipital headache and vertigo but no additional new symptoms. On arrival, her examination was notable only for a right superior quadrantanopia (seen previously) and a possible mild left liliana sensory loss most notablewith temperature testing. CTA head/neck revealed no significant change compared with prior. CT head revealed no new intracranial abnormalities. INR by 04/05/2019 was therapeutic at 2. Given the stability on imaging, and no significant new symptoms with additional resolution of her vertigo, she will now be discharged home on warfarin at therapeutic INR level. Plan for follow-up will remain the same asduring her previous admission. documented in this encounter Plan of Treatment Not on filedocumented as of this encounter Procedures Procedure Name Priority Date/Time Associated Comments Diagnosis PROTHROMBIN TIME Routine 04/05/2019 8:07 Results for (PT), P AM CDT this procedure are in the results section. CBC WITH Routine 04/05/2019 8:07 Results for DIFFERENTIAL, B AM CDT this procedu re are in the results section. BASIC METABOLIC Routine 04/05/2019 8:07 Results f or PANEL, S/P AM CDT this procedure are in the results section. CT HEAD NECK RAD - Emergent 04/04/2019 7:48 Results fo r ANGIOGRAM WITH IV (Fastest; for the PM CDT this procedure CONTRAST most critically are in the ill patients) results section. HEPARIN LEVEL ANTI-XA STAT 04/04/2019 6:56 Res ults for ASSAY, P PM CDT this procedure are in the results section. ACTIVATED PARTIAL STAT 04/04/2019 5:25 Results for THROMBOPLASTIN TIME PM CDT this pro cedure (APTT), P are in the results section. PROTHROMBIN TIME STAT 04/04/2019 5:25 Results for (PT), P PM CDT this procedure are in the results section. CBC WITH STAT 04/04/2019 5:25 Results for DIFFERENTIAL, B PM CDT this procedu re are in the results section. PHOSPHORUS STAT 04/04/2019 5:25 Results for (INORGANIC), S PM CDT this procedur e are in the results section. MAGNESIUM, S STAT 04/04/2019 5:25 Results for PM CDT this procedure are in the results section. COMPREHENSIVE STAT 04/04/2019 5:25 Results for METABOLIC PANEL, S/P PM CDT this pr ocedure are in the results section. documented in this encounter Results Basic Metabolic Panel (04/05/2019 8:07 AM CDT) athologist Signature Potassium, S 4.1 3.6 - 5.2 04/05/2019 [facility] mmol/L 9:28 AM CDT LABORATORIES - [facility] Sodium, S 142 135 - 145 04/05/2019 [facility] mmol/L 9:28 AM CDT LABORATORIES - [facility] Chloride, S 105 98 - 107 04/05/2019 [facility] mmol/L 9:28 AM CDT LABORATORIES - [facility] Bicarbonate, S 25 22 - 29 04/05/2019 [facility] mmol/L 9:28 AM CDT LABORATORIES - [facility] Anion Gap 12 7 - 15 04/05/2019 [facility] 9:28 AM CDT LABORATORIES - [facility] BUN (Blood 20 6 - 21 04/05/2019 [facility] Urea mg/dL 9:28 AM CDT LABORATORIES - Nitrogen), S [facility] Creatinine, S 0.88 0.59 - 04/05/2019 [facility] 1.04 mg/dL 9:28 AM CDT LABORATORIES [facility] eGFR-Non 74 >=60 04/05/2019 [facility] Black/ mL/min/BSA 9:28 AM CDT LABORATORIES [facility] Comment: ----ADDITIONAL INFORMATION---- Estimated GFR calculated using the 2009 CKD_EPI creatinine equation. eGFR-Black/ 86 >=60 mL/min/BSA 04/05/2019 9:28 [facility] CDT LABORATORIES [facility] Comment: ----ADDITIONAL INFORMATION---- Estimated GFR calculated using the 2009 CKD_EPI creatinine equation. Calcium, Total, S 9.2 8.6 - 10.0 mg/dL 04/05/2019 9:28 AM [facility] CDT [facility] Glucose, S 124 70 - 140 mg/dL 04/05/2019 9:28 AM [facility] CDT LABORATORIES [facility] S Specimen Anatomical Collection Method Collection Time Receive d Time (Source) Location / / Volume Laterality Blood (Blood, 04/05/2019 8:07 AM 04/05/20 19 8:26 Venous) CDT AM CDT Clemente Aiken M.D. LAB BLOOD ADD-ON Performing Organization Address City/State/ZIP Code Phon e Number [facility] LABORATORIES - [address] CBC with Differential, Blood (04/05/2019 8:07 AM CDT) [facility] Method Time Signature Hemoglobin 12.9 11.6 - 04/05/2019 [facility] 15.0 g/dL 8:38 AM CDT LABORATORIES [facility] Hematocrit 38.0 35.5 - 04/05/2019 [facility] 44.9 % 8:38 AM CDT LABORATORIES [facility] Erythrocytes 3.94 3.92 - 04/05/2019 [facility] 5.13 8:38 AM CDT LABORATORIES - x10(12)/L [facility] MCV 96.4 78.2 - 04/05/2019 [facility] 97.9 fL 8:38 AM CDT LABORATORIES [facility] RBC Distrib Width 13.2 12.2 - 04/05/2019 [facility] 16.1 % 8:38 AM CDT LABORATORIES [facility] Platelet Count 226 157 - 371 04/05/2019 [facility] x10(9)/L 8:38 AM CDT LABORATORIES - [facility] Leukocytes 5.5 3.4 - 9.6 04/05/2019 [facility] x10(9)/L 8:38 AM CDT LABORATORIES - [facility] Neutrophils 3.00 1.56 - 04/05/2019 [facility] 6.45 8:38 AM CDT LABORATORIES - x10(9)/L [facility] Lymphocytes 1.84 0.95 - 04/05/2019 [facility] 3.07 8:38 AM CDT LABORATORIES - x10(9)/L [facility] Monocytes 0.37 0.26 - 04/05/2019 [facility] 0.81 8:38 AM CDT LABORATORIES - x10(9)/L [facility] Eosinophils 0.22 0.03 - 04/05/2019 [facility] 0.48 8:38 AM CDT LABORATORIES - x10(9)/L [facility] Basophils 0.05 0.01 - 04/05/2019 [facility] 0.08 8:38 AM CDT LABORATORIES - x10(9)/L [facility] Specimen Anatomical Collection Method Collection Time Receive d Time (Source) Location / / Volume Laterality Blood (Blood, 04/05/2019 8:07 AM 04/05/20 19 8:26 Venous) CDT AM CDT Clemente Aiken M.D. LAB BLOOD ADD-ON Performing Organization Address City/State/ZIP Code Phon e Number [facility] LABORATORIES - [address] [place], [place] [address] [facility] (ABNORMAL) Prothrombin Time (PT/INR) (04/05/2019 8:07 AM CDT) [facility] gist Method Time Signature Prothrombin 21.9 (H) 9.4 - 04/05/2019 [facility] Time, P 12.5 sec 8:44 AM CDT LABORATORIES - [facility] INR 2.0 0.9 - 1.1 04/05/2019 [facility] 8:44 AM CDT LABORATORIES [facility] Comment: ----ADDITIONAL INFORMATION---- Standard intensity warfarin therapeutic range: 2.0 to 3.0 ?? High intensity warfarin therapeutic rang e: 2.5 to 3.5 Specimen Anatomical Collection Method Collection Time Receive d Time (Source) Location / / Volume Laterality Blood (Blood, 04/05/2019 8:07 AM 04/05/20 19 8:26 Venous) CDT AM CDT Clemente Aiken M.D. LAB BLOOD ADD-ON Performing Organization Address City/State/ZIP Code Phon e Number [facility] LABORATORIES - [address] [place], [place] [address] [facility] [address] Head Neck Angiogram with IV Contrast (04/04/2019 7:48 PM CDT) Anatomical Region Laterality Modality Head and Neck, Neuroradiology RST LOS, Neuroradiology N/A Computed Tomography ARZ LOS, Neuroradiology FLA LOS Specimen (Source) Anatomical Collection Method Collection Time Re ceived Time Location / / Volume Laterality 04/04/2019 8:06 PM CDT Impressions 04/04/2019 8:59 PM CDT IMPRESSION: No significant change. Stable 8mm in length thrombus in the distal right vertebral artery at C1 level. Unch anged 4 mm left cavernous ICA aneurysm and additional two 2 mm small aneurysm v ersus infundibula in the left supraclinoid ICA. Narrative 04/04/2019 8:59 PM CDT EXAM: CT HEAD NECK ANGIOGRAM WITH IV CONTRAST COMPARISON: CT head without contrast 04/04, CTA head and neck 03/29/2019 FINDINGS: Redemonstration of the 8 mm in length focal filling defect within the distal right vertebral artery at the C1 level (series 5 image 268), most consistent with thrombus. No evidence of propagation. No new thrombus identified. The vertebral arteries are o therwise widely patent. Otherwise no significant stenosis in the intracranial and cervical arterial vasculature. Stable 4 mm aneurysm of the cavernous le ft ICA (series 5 image 330). Unchanged two 2 mm outpouchings in the undersurfac e of the left supraclinoid ICA, small aneurysm versus infundibula. Patulous appearance of the upper cervica l ICAs, right more than left. Three-vessel left-sided conventional aor tic ratio left-sided aortic arch. Posterior instrumented fusion hardware f rom C2 to T3 and prior anterior fusion from C3 to T1. Postsurgical changes from prior functional endoscopic sinus surgery. Minor paranasal sinus mucosal t hickening. Chronic appearing medial bowing of the lamina papyracea bilateral ly. Patulous esophagus containing fluid. Procedure Note Robinson Chavez M.D. - 04/04/2019Formatti ng of this note might be different from the original. EXAM: CT HEAD NECK ANGIOGRAM WITH IV CON TRAST COMPARISON: CT head without contrast 04/04, CTA head and neck 03/29/2019 FINDINGS: Redemonstration of the 8 mm in length focal filling defect within the distal right vertebral artery at the C1 level (series 5 image 268), most consistent with thrombus. No evidence of propagation. No new thrombus identified. The vertebral arteries are o therwise widely patent. Otherwise no significant stenosis in the intracranial and cervical arterial vasculature. Stable 4 mm aneurysm of the cavernous le ft ICA (series 5 image 330). Unchanged two 2 mm outpouchings in the undersurfac e of the left supraclinoid ICA, small aneurysm versus infundibula. Patulous appearance of the upper cervica l ICAs, right more than left. Three-vessel left-sided conventional aor tic ratio left-sided aortic arch. Posterior instrumented fusion hardware f rom C2 to T3 and prior anterior fusion from C3 to T1. Postsurgical changes from prior functional endoscopic sinus surgery. Minor paranasal sinus mucosal t hickening. Chronic appearing medial bowing of the lamina papyracea bilateral ly. Patulous esophagus containing fluid. IMPRESSION: No significant change. Stabl e 8mm in length thrombus in the distal right vertebral artery at C1 level. Unch anged 4 mm left cavernous ICA aneurysm and additional two 2 mm small aneurysm v ersus infundibula in the left supraclinoid ICA. Clemente NIELSON CT PROCEDURES Heparin Anti-Xa Assay (04/04/2019 6:56 PM CDT) athologist Signature Heparin 0.81 IU/mL 04/04/2019 [facility] Anti-Xa, P 7:40 PM CDT [facility] Comment: UFH therapeutic range: ?? 0.30-0.70 IU/mL [...] Location / / Volume Laterality Blood (Blood, 04/04/2019 6:56 PM 04/04/20 19 7:16 Venous) CDT PM CDT Clemente Aiken M.D. LAB BLOOD NON ADD-ON Performing Organization Address [facility] Phon e Number [facility] LABORATORIES - [address] [place] [phone] [facility] (ABNORMAL) Prothrombin Time (PT/INR) (04/04/2019 5:25 PM CDT) [facility] [employer] Method Time Signature Prothrombin 20.1 (H) 9.4 - 04/04/2019 [facility] Time, P 12.5 sec 5:54 PM CDT LABORATORIES - [facility] INR 1.8 0.9 - 1.1 04/04/2019 [facility] 5:54 PM CDT [facility] Comment: ----ADDITIONAL INFORMATION---- Standard intensity warfarin therapeutic range: 2.0 to 3.0 ?? High intensity warfarin therapeutic rang e: 2.5 to 3.5 Specimen Anatomical Collection Method Collection Time Receive d Time (Source) Location / / Volume Laterality Blood (Blood, 04/04/2019 5:25 PM 04/04/20 19 5:32 Venous) CDT PM CDT Clemente Aiken M.D. LAB BLOOD ADD-ON Performing Organization Address [facility] Phon e Number [facility] LABORATORIES - [address] [place] [phone] [facility] (ABNORMAL) CBC with Differential, Blood (04/04/2019 5:25 PM CDT) [facility] [employer] Method Time Signature Hemoglobin 12.1 11.6 - 04/04/2019 [facility] 15.0 g/dL 5:35 PM CDT LABORATORIES [facility] Hematocrit 36.3 35.5 - 04/04/2019 [facility] 44.9 % 5:35 PM CDT [facility] Erythrocytes 3.76 (L) 3.92 - 04/04/2019 [facility] 5.13 5:35 PM CDT LABORATORIES - x10(12)/L [facility] MCV 96.5 78.2 - 04/04/2019 [facility] 97.9 fL 5:35 PM CDT LABORATORIES - [facility] RBC Distrib 12.9 12.2 - 04/04/2019 [facility] Width 16.1 % 5:35 PM CDT LABORATORIES - [facility] Platelet Count 224 157 - 371 04/04/2019 [facility] x10(9)/L 5:35 PM CDT LABORATORIES - [facility] Leukocytes 4.6 3.4 - 9.6 04/04/2019 [facility] x10(9)/L 5:35 PM CDT LABORATORIES - [facility] Neutrophils 2.09 1.56 - 04/04/2019 [facility] 6.45 5:35 PM CDT LABORATORIES - x10(9)/L [facility] Lymphocytes 1.88 0.95 - 04/04/2019 [facility] 3.07 5:35 PM CDT LABORATORIES - x10(9)/L [facility] Monocytes 0.39 0.26 - 04/04/2019 [facility] 0.81 5:35 PM CDT LABORATORIES - x10(9)/L [facility] Eosinophils 0.18 0.03 - 04/04/2019 [facility] 0.48 5:35 PM CDT LABORATORIES - x10(9)/L [facility] Basophils 0.04 0.01 - 04/04/2019 [facility] 0.08 5:35 PM CDT LABORATORIES - x10(9)/L [facility] Specimen Anatomical Collection Method Collection Time Receive d Time (Source) Location / / Volume Laterality Blood (Blood, 04/04/2019 5:25 PM 04/04/20 19 5:32 Venous) CDT PM CDT Clemente Aiken M.D. LAB BLOOD ADD-ON Performing Organization Address City/State/ZIP Code Phon e Number [facility] LABORATORIES - [address] [place], [place] [address] [facility] (ABNORMAL) APTT (Activated Partial Thromboplastin Time) (04/04/2019 5:25 PM CDT) Analysis Performed At Patho logist Time Signature Activated 44 (H) 25 - 37 04/04/2019 [facility] Partial sec 5:57 PM CDT LABORATORIES - Thrombopl [facility] Specimen Anatomical Collection Method Collection Time Receive d Time (Source) Location / / Volume Laterality Blood (Blood, 04/04/2019 5:25 PM 05/08/20 19 5:32 Venous) CDT PM CDT Clemente Aiken M.D. LAB BLOOD ADD-ON Performing Organization Address City/[facility] Code Phon e Number [facility] LABORATORIES - [address] [place] [phone] [facility] Magnesium (04/04/2019 5:25 PM CDT) P athologist Signature Magnesium, S 2.3 1.7 - 2.3 04/04/2019 [facility] mg/dL 6:21 PM CDT LABORATORIES - [facility] Specimen Anatomical Collection Method Collection Time Receive d Time (Source) Location / / Volume Laterality Blood (Blood, 04/04/2019 5:25 PM 04/04/20 19 5:40 Venous) CDT PM CDT Clemente Aiken M.D. LAB BLOOD ADD-ON Performing Organization Address City/[facility] Phon e Number [facility] LABORATORIES - [address] [place] [phone] [facility] Phosphorus Inorganic (04/04/2019 5:25 PM CDT) Analysis Performed At Patho logist Time Signature Phosphorus 3.8 2.5 - 4.5 04/04/2019 [facility] (Inorganic), S mg/dL 6:21 PM CDT LABORATORIES - [facility] Specimen Anatomical Collection Method Collection Time Receive d Time (Source) Location / / Volume Laterality Blood (Blood, 04/04/2019 5:25 PM 04/04/20 19 5:40 Venous) CDT PM CDT Clemente Aiken M.D. LAB BLOOD ADD-ON Performing Organization Address City/[facility] Code Phon e Number [facility] LABORATORIES - [address] [place] [phone] [facility] (ABNORMAL) Comprehensive Metabolic Panel (04/04/2019 5:25 PM CDT) Patholo gist Method Time Signature Potassium, S 3.5 (L) 3.6 - 5.2 04/04/2019 [facility] mmol/L 6:21 PM CDT LABORATORIES [facility] Sodium, S 141 135 - 145 04/04/2019 [facility] mmol/L 6:21 PM CDT LABORATORIES - [facility] Chloride, S 105 98 - 107 04/04/2019 [facility] mmol/L 6:21 CDT LABORATORIES [facility] Bicarbonate, S 23 22 - 29 04/04/2019 [facility] mmol/L 6:21 CDT LABORATORIES [facility] Anion Gap 13 7 - 15 04/04/2019 [facility] 6:21 CDT LABORATORIES [facility] BUN (Blood 20 6 - 21 04/04/2019 [facility] Urea mg/dL 6:21 CDT LABORATORIES - Nitrogen), S [facility] Creatinine, S 0.90 0.59 - 04/04/2019 [facility] 1.04 mg/dL 6:21 CDT LABORATORIES [facility] eGFR-Non 72 >=60 04/04/2019 [facility] Black/ mL/min/BSA 6:21 CDT LABORATORIES [facility] Comment: ----ADDITIONAL INFORMATION---- Estimated GFR calculated using the 2009 CKD_EPI creatinine equation. eGFR-Black/ 83 >=60 mL/min/BSA 04/04/2019 6:21 [facility] CDT LABORATORIES [facility] Comment: ----ADDITIONAL INFORMATION---- Estimated GFR calculated using the 2009 CKD_EPI creatinine equation. Calcium, Total, S 8.6 8.6 - 10.0 04/04/2019 6:21 [facility] mg/dL CDT LABORATORIES [facility] Glucose, S 96 70 - 140 04/04/2019 6:21 [facility] mg/dL CDT LABORATORIES [facility] Protein, Total, S 6.2 (L) 6.3 - 7.9 04/04/2019 6:21 [facility] g/dL CDT [facility] Albumin, S 4.1 3.5 - 5.0 04/04/2019 6:21 [facility] g/dL CDT LABORATORIES [facility] Aspartate 21 8 - 43 U/L 04/04/2019 6:21 [facility] Aminotransferase (AST), CDT LABORA TORIES - S [facility] Alkaline Phosphatase, S 73 35 - 104 U/L 04/04/2019 6: 21 [facility] CDT LABORATORIES [facility] Alanine Aminotransferase 14 7 - 45 U/L 04/04/2019 6:2 1 [facility] (ALT), S CDT LABORATORIES [facility] Bilirubin, Total, S 0.2 <=1.2 mg/dL 04/04/2019 6:21 [facility] PM CDT LABORATORIES - [facility] Specimen Anatomical Collection Method Collection Time Receive d Time (Source) Location / / Volume Laterality Blood (Blood, 04/04/2019 5:25 PM 04/04/20 5:40 Venous) CDT PM CDT Clemente Aiken M.D. LAB BLOOD ADD-ON Performing Organization Address City/State/ZIP Code Phon e Number [facility] LABORATORIES - [address] [place], [place] [address] [facility] documented in this encounter Visit Diagnoses Diagnosis Stroke (HCC) - Primary Decline Functional Status Malaise documented in this encounter Administered Medications Inactive Administered Medications - up to 3 most recent administrations Medication Order MAR Action Action Date Dose Rate Site acetaminophen tablet 1,000 mg Given 04/05/2019 2:07 PM CDT 1,000 mg (TYLENOL) 1,000 mg, oral, Every 6 hours, First dose on Clementine 04/05/19 at 0800 Given 04/05/2019 8:31 AM CDT 1,000 mg atorvastatin tablet 40 mg (LIPITOR) Given 04/04/2019 9:58 PM CDT 40 mg 40 mg, oral, Daily at bedtime, First dose on Tue04/04/19 at 2100 cetirizine tablet 10 mg (ZyrTEC) Given 04/05/2019 8:41 AM CDT 10 mg 10 mg, oral, 2 times daily, First dose on Tue04/04/19 at 2100, Drug Monitoring Program: Pharmacist to adjust medication dosing based on indication and drug clearance factors. Given 04/04/2019 9:57 PM CDT 10 mg cycloSPORINE 0.05 % ophthalmic emulsion 1 Given 04/05/2019 8:48 AM CDT 1 drop drop (RESTASIS) 1 drop, both eyes, 2 times daily, First dose on Tue04/04/19 at 2100 Given 04/04/2019 10:07 PM CDT 1 drop diazePAM tablet 10 mg (VALIUM) 10 mg, oral, 2 times daily PRN, anxiety, Starting on T hu 04/05/19 at 0950 enoxaparin injection 70 mg Given 04/05/2019 8:50 AM CDT 70 mg Left Lower Abdomen (LOVENOX) 70 mg, subcutaneous, 2 times daily, First dose on Tue04/04/19 at 2130 Given 04/04/2019 10:09 PM CDT 70 mg Left Lower Abdomen FLUoxetine capsule 60 mg (PROzac) Given 04/05/2019 8:38 AM CDT 60 mg 60 mg, oral, Daily, First dose on Tue04/05/19 at 0900, FLUoxetine orderable was interchanged for FLUoxetine tablet/capsule fluticasone furoate-vilanterol 100-25 Given 04/05/2019 9:34 AM C DT 1 puff mcg/actuation inhaler 1 puff (BREO ELLIPTA DISKUS) 1 puff, inhalation, Daily (RT), First dose on Tue04/05/19 at 0800, fluticasone/vilanterol diskus 100/25 mcg was interchanged for Mometasone/Formoterol fluticasone propionate 50 mcg/actuation Given 04/04/2019 10:09 P M CDT 2 sprays nasal spray 2 spray (FLONASE) 2 spray, each nostril, Daily at bedtime, First dose on Tue04/04/19 at 2100 folic acid tablet 800 mcg Given 04/05/2019 8:32 AM CDT 800 mcg 800 mcg, oral, Daily, First dose on Tue04/05/19 at 0900 furosemide tablet 40 mg (LASIX) Given 04/05/2019 8:39 AM CDT 40 mg 40 mg, oral, 2 times daily, First dose on Tue04/04/19 at 1700 Given 04/04/2019 5:18 PM CDT 40 mg iohexol 350 mg iodine/mL solution 1-200 mL Given 04/04/2019 7:31 PM CDT 100 mL (OMNIPAQUE) 1-200 mL, intravenous, Once in imaging, contrast, Starting on Tue04/04/19 at 1930, For 1 dose, Imaging Protocol Orders, Dose per Radiant Medication Guidelines lamoTRIgine tablet 200 mg (LaMICtal) Given 04/05/2019 8:40 AM CDT 200 mg 200 mg, oral, 2 times daily, First dose on Tue04/04/19 at 2100 Given 04/04/2019 9:59 PM CDT 200 mg lidocaine 5 % 1 patch Medication Applied 04/05/2019 8:44 AM 1 patch Lower Back (LIDODERM) CDT 1 patch, transdermal, Administer over 12 Hours, Daily, First dose on Tue04/05/19 at 0900, Remove after 12 hours. LORazepam tablet 0.5 mg (ATIVAN) 0.5 mg, oral, 3 times daily PRN, anxiety, Starting on Tue04/04/19 at 2217 nicotine 14 mg/24 hr 1 Medication Applied 04/05/2019 8:42 AM 1 patch Right Shoulder patch (NICODERM CQ) CDT 1 patch, transdermal, Administer over 24 Hours, Daily, First dose on Tue04/05/19 at 0900 oxyCODONE IR tablet 10 mg (ROXICODONE) Given 04/05/2019 10:16 AM CDT 10 mg 10 mg, oral, Every 6 hours PRN, severe pain or score 7-10 of 10, only for significant headache pain not controlled with oxy IR 5, Starting on Tue04/05/19 at 0830 oxyCODONE IR tablet 5 mg (ROXICODONE) Given 04/05/2019 2:07 PM CDT 5 mg 5 mg, oral, 5 times daily, First dose on Tue04/04/19 at 1800 Given 04/05/2019 9:34 AM CDT 5 mg Given 04/05/2019 6:35 AM CDT [address] tablet 40 mg (PROTONIX) Given 04/05/2019 6:35 AM CDT 40 mg 40 mg, oral, Daily before breakfast, First dose on Tue04/05/19 at 0700, pantoprazole 40 mg oral daily was interchanged for esomeprazole 20 or 40 mg oral daily Swallow whole. Do NOT crush, chew, or split tablet. pregabalin capsule 150 mg (LYRICA) Given 04/05/2019 8:40 AM CDT 150 mg 150 mg, oral, Daily, First dose on Tue04/05/19 at 0900 pregabalin capsule 450 mg (LYRICA) Given 04/04/2019 10:07 PM CDT 450 mg 450 mg, oral, Daily at bedtime, First dose on Tue04/04/19 at 2130 sodium chloride (PF) 0.9 % injection 1-1 00 mL Given 04/04/2019 7:32 PM CDT 35 mL 1-100 mL, intravenous, Once, On Tue04/04/19 at 1945, For 1 dose, Imaging Protocol Orders tiotropium 2.5 mcg/actuation inhaler 2 p uff Given 04/05/2019 8:53 AM CDT 2 puffs 2 puff, inhalation, Daily, First dose on Tue04/05/19 at 0900 tiZANidine tablet 2 mg (ZANAFLEX) Given 04/04/2019 11:14 PM CDT 2 mg 2 mg, oral, Every 8 hours PRN, muscle spasms, Starting on Tue04/04/19 at 1654 warfarin management (COUMADIN) oral, Daily, First dose on Tue04/04/19 at 1930, Pharmacist to Dose: Yes, Target INR: 2 - 3, Comorbidities that constitute War farin Sensitivity: No known comorbidities that change warfarin sensitivity, Indication: Stroke/T IA, Therapy type: Continuation Warfarin therapy warfarin tablet 7.5 mg (COUMADIN) Given 04/04/2019 9:57 PM CDT 7.5 mg 7.5 mg, oral, Once, On Tue04/04/19 at 2015, For 1 dose zonisamide capsule 300 mg (ZONEGRAN) Given 04/05/2019 8:36 AM CDT 300 mg 300 mg, oral, 2 times daily, First dose on Tue04/04/19 at 2100, Swallow whole. Do NOT crush, chew or open capsule. Given 04/04/2019 9:58 PM CDT 300 mg documented in this encounter Active and Recently Administered Medications Times are shown in CDT. Scheduled Medication Order 04/03/2019 04/04/2019 04/05/2019 acetaminophen tablet 1,000 mg (TYLENOL) 0831 (Given - Provider: Dia Stafford R.N.)1407 (Given - Provider: Dia Stafford R.N.) 1,000 mg, oral, Every 6 hours, First dose on Tue04/05/19 at 0800 atorvastatin tablet 40 mg (LIPITOR) 2157 (Given - Provider: Beryl Cleary R.N.) 40 mg, oral, Daily at bedtime, First dose on Tue04/04/19 at 2100 cetirizine tablet 10 mg (ZyrTEC) 215 (Given - P rovider: Beryl Cleary R.N.) 0841 (Given - Provider: Dia Stafford R.N.) 10 mg, oral, 2 times daily, First dose o n Tue04/04/19 at 2100, Drug Monitoring Program: Pharmacist to adjust medication dosing based on indication and drug clearance factors. cycloSPORINE 0.05 % ophthalmic emulsion 1 drop (RESTASIS) 2206 (Given - Provider: Beryl Cleary R.N.) 0848 (Given - Provider: Dia Stafford R.N.) 1 drop, both eyes, 2 times daily, First dose on Tue04/04/19 at 21 00 enoxaparin injection 70 mg (LOVENOX) 220 9 (Given - Provider: Beryl Cleary R.N.) 0850 (Given - Provider: Dia Stafford R.N. - Comment: Tyler Naik R.N. verified partial dose) 70 mg, subcutaneous, 2 times daily, First dose on Tue04/04/19 at 2130 FLUoxetine capsule 60 mg (PROzac) 0838 (Given - Provider: Dia Stafford R.N.) 60 mg, oral, Daily, First dose on 08/16 at 0900, FLUoxetine orderable was interchanged for FLUoxetine tablet/capsule fluticasone furoate-vilanterol 100-25 mc g/actuation inhaler 1 puff (BREO ELLIPTA DISKUS) 34 (Given - Provid er: Tyler Naik R.N.) 1 puff, inhalation, Daily (RT), First do se on Tue04/05/19 at 0800, fluticasone/vilanterol diskus 100/25 mcg was interchanged for Mometasone/Formoterol fluticasone propionate 50 mcg/actuation nasal spray 2 spray (FLONASE) 2208 (Given - Provider: Beryl Cleary R.N.) 2 spray, each nostril, Daily at bedtime, First dose on Tue 9 at 2100 folic acid tablet 800 mcg 0832 ( Given - Provider: Dia Stafford R.N.) 800 mcg, oral, Daily, First dose on Tue04/05/19 at 0900 furosemide tablet 40 mg (LASIX) 1718 (Given - Pr ovider: Beryl Cleary R.N.) 0839 (Given - Provider: Dia Stafford R.N.) 40 mg, oral, 2 times daily, First dose on Tue04/04/19 at 1700 lamoTRIgine tablet 200 mg (LaMICtal) 215 9 (Given - Provider: Beryl Cleary R.N.) 0840 (Given - Provider: Dia Stafford R.N.) 200 mg, oral, 2 times daily, First dose on Tue04/04/19 at 2100 lidocaine 5 % 1 patch (LIDODERM) 0844 (Medication Applied - Provider: Dia Stafford R.N.)1451 (Due: Medication Removed - Provider: Discharge Provider, Automatic - Comment: Time automatically adjusted from order being discontinued) 1 patch, transdermal, Administer over 12 Hours, Daily, First dose on Tue04/05/19 at 0900, Remove after 12 hours. nicotine 14 mg/24 hr 1 patch (NICODERM CQ) 0842 (Medication Applied - Provider: Dia Stafford R.N.)1451 (Due: Medication Removed - Provider: Discharge Provider, Automatic - Comment: Time automatically adjusted from order being discontinued) 1 patch, transdermal, Administer over 24 Hours, Daily, First dose on Tue04/05/19 at 0900 oxyCODONE IR tablet 5 mg (ROXICODONE) 17 37 (Given - Provider: Beryl Cleary R.N.)2221 (Given - Provider: Beryl Cleary R.N.) 0635 (Given - Provider: Beryl Cleary R.N.)0934 (Given - Provider: Tyler Naik R.N.)1407 (Given - Provider: Dia Stafford R.N.) 5 mg, oral, 5 times daily, First dose on Tue04/04/[address] tablet 40 mg (PROTONIX) 0635 (Given - Provider: Beryl Cleary R.N.) 40 mg, oral, Daily before breakfast, Fir st dose on Tue04/05/19 at 0700, pantoprazole 40 mg oral daily was interchanged for esomeprazole 20 or 40 mg oral daily Swallow whole. Do NOT crush, chew, or split tablet. pregabalin capsule 150 mg (LYRICA) 0840 (Given - Provider: Dia Stafford R.N.) 150 mg, oral, Daily, First dose on Tue04/05/19 at 0900 pregabalin capsule 450 mg (LYRICA) 2207 (Given - Provider: Beryl Cleary R.N.) 450 mg, oral, Daily at bedtime, First dose on Tue04/04/19 at 2130 sodium chloride (PF) 0.9 % injection 1-100 mL (COMPLETED) 1931 (Given - Provider: Kiara Curry R.N., CRN) 1-100 mL, intravenous, Once, On Tue at 1945, For 1 dose, Imaging Protocol Orders tiotropium 2.5 mcg/actuation inhaler 2 puff 0853 (Given - Provider: Dia Stafford R.N.) 2 puff, inhalation, Daily, First dose on Clementine 04/05/19 at 0900 warfarin management (COUMADIN) 1929 (Due) oral, Daily, First dose on Tue04/04/19 at 1930, Pharmacist to Dose: Yes, Target INR: 2 - 3, Comorbidities that constitute Warfarin Sensitivity: No known comorbidities that change warfarin sensitivity, In dication: Stroke/TIA, Therapy type: Continuation Warfarin therap y warfarin tablet 7.5 mg (COUMADIN) (COMPLETED) 2156 (Given - Provider: Beryl Cleary R.N.) 7.5 mg, oral, Once, On Tue04/04/19 at 2015, For 1 dose zonisamide capsule 300 mg (ZONEGRAN) (Given - Provider: Beryl Cleary R.N.) 0836 (Given - Provider: Dia Stafford R.N.) 300 mg, oral, 2 times daily, First dose on Tue04/04/19 at 2100, Swallow whole. Do NOT crush, chew or open capsule. PRN Medication Order 04/03/2019 04/04/2019 04/05/2019 albuterol 90 mcg/actuation inhaler 2 puff (PROVENTIL HFA,VENTOLI N HFA) 2 puff, inhalation, Every 6 hours PRN, w heezing, shortness of breath, Starting Tue04/04/19 at 1644 albuterol nebulizer solution 2.5 mg (ACCUNEB) 2.5 mg, nebulization, Every 6 hours PRN, shortness of breath, Starting Tue04/04/19 at 1644 alum-mag hydroxide-simeth 200-200-20 mg/5 mL suspension 30 mL (M AALOX) 30 mL, oral, Every 4 hours PRN, indigest ion, heartburn, Starting Tue04/04/19 at 1645 benzonatate capsule 200 mg (TESSALON PERLES) 200 mg, oral, 3 times daily PRN, cough, Starting Tue04/04/19 at 1645, Swallow whole. Do NOT crush, chew or open capsule. diazePAM tablet 10 mg (VALIUM) 10 mg, oral, 2 times daily PRN, anxiety, Starting on Clementine 04/05/19 at 0950 diphenhydrAMINE capsule 25 mg (BENADRYL) 25 mg, oral, Bedtime PRN, sleep, Starting Tue04/04/19 at 1646 iohexol 350 mg iodine/mL solution 1-200 mL (OMNIPAQUE) (COMP LETED) 193 (Given - Provider: Kiara Curry R.N., CRN - Comment: LOT# [id number]) 1-200 mL, intravenous, Once in imaging, contrast, Starting on Tue04/04/19 at 1930, For 1 dose, Imaging Protocol Orders, Dose per Radiant Medication Guidelines LORazepam tablet 0.5 mg (ATIVAN) 0.5 mg, oral, 3 times daily PRN, anxiety, Starting on Tue04/04/19 at 2217 naloxone injection 0.2 mg (NARCAN) 0.2 mg, intravenous, As needed, respirat ory depression, Starting Tue04/04/19 at 1658, For respiratory rate less than 8 breaths per minute or RASS score of -3, - 4, -5. Apply oxygen to keep oxygen saturations greater than 90% and notify service. nicotine 10 mg inhaler 1 puff (NICOTROL) 1 puff, inhalation, As needed, smoking c essation, Starting Tue04/04/19 at 1650, For 26 days, Inhale with continuous puffing over 20 minutes; Initial 6 to 16 cartridges per day; MAX 16 cartridges per day. ondansetron ODT disintegrating tablet 4 mg (ZOFRAN-ODT) 4 mg, oral, Every 8 hours PRN, nausea, S tarting Tue04/04/19 at 1651, When splitting ODT at bedside, handle with gloves and a pill splitter to prevent moisture contact. oxyCODONE IR tablet 10 mg (ROXICODONE) 1016 (Given - Provider: Dia Stafford R.N.) 10 mg, oral, Every 6 hours PRN, severe p ain or score 7-10 of 10, only for significant headache pain not controlled with oxy IR 5, Starting on Clementine 04/05/19 at 0830 polyethylene glycol powder packet 17 g (MIRALAX) 17 g, oral, Bedtime PRN, constipation, S tarting Tue04/04/19 at 1651, 17 g = 1 heaping Tablespoon. Dissolve in 240 mLs (8 ounces) of water prior to giving. Avoid mixing with starch-based thickened liquids. promethazine tablet 25 mg (PHENERGAN) 25 mg, oral, Every 6 hours PRN, nausea, Starting Tue04/04/19 at 1 653 tiZANidine tablet 2 mg (ZANAFLEX) 2314 ( Given - Provider: Beryl Cleary R.N.) 2 mg, oral, Every 8 hours PRN, muscle spasms, Starting on 07/16 at 1654 documented in this encounter Additional Health Concerns Assessment Noted Time PHQ-9 Depression Total Score: 5 04/05/2019 8:00 AM CDT documented as of this encounter
--- OUTSIDE RECORDS SUMMARY | 2022-07-06 14:56 | XMS_ITS | Encounter Summary ---
:1965 Author Organization [facility] Address [address] [place] [address] Care Team Providers Name Role Phone Unavailable Primary Care Provider Unavailable Reason for Visit Reason Onset Date Comments Patient wants letter and notes sent to physician in 10/03/[address] Robert Diehl [facility] Encounter Details Date Type Department Care Team Description 10/03/2019 Clinical Communication Department of Robert Diehl Neurology in [place] letter and notes [address] sent to physician [place], [place] in [facility] ( [address] [place] [phone] Robert Diehl) [place], [place] [phone] (Work) [phone] Social History Tobacco Use Types Packs/Day Years [...] or relatives? How often do you attend synagogue or Patient refused 2021 uatsdin services? Do you belong to any clubs or No 05/17/2022 organizations such as synagogue groups, unions, fraternal or athletic groups, or [...] this encounter Miscellaneous Notes Telephone Encounter - Coby Beatty - 10/03/2019 3:55 PM CST As per documentation in [facility] on 09/04, a letter has been sent to Dr. Blackwell with the patient's notes from her most recent visit. BUYER documented in this encounter Plan of Treatment Not on filedocumented as of this encounter Visit Diagnoses Not on filedocumented in this encounter Additional Health Concerns Assessment Noted Time PHQ-9 Depression Total Score: 5 04/05/2019 8:00 AM CDT documented as of this encounter
--- OUTSIDE RECORDS SUMMARY | 2022-07-06 14:56 | XMS_ITS | Encounter Summary ---
:1965 Author Organization [facility] Address [address] [place] [address] Care Team Providers Name Role Phone Unavailable Primary Care Provider Unavailable Reason for Visit Reason Onset Date Comments Telephone call 04/24/2019 [place] Encounter Details Date Type Department Care Team Description 04/24/2019 Clinical Communication Department of Bl[place], Tele phone call Neurology in Nan Bose M.D. ([place]) [place], [facility] [place], [place] [address] [place] [id number] [place], [place] [phone] (Work) [phone] Social History Tobacco Use Types Packs/Day Years [...] you attend islam or Patient refused 2021 hinduism services? Do you belong to any clubs [...] or slept in a longterm (including now)? Sex Assigned at Date Recorded Female 03/01/2019 10:12 AM CDT documented as of this encounter Miscellaneous Notes Telephone Encounter - Robert Diehl M.D. - 04/25/2019 10:37 AM CDT The appropriate PFO closure is determined in an outpatient setting we can offer this appointment if the patient would like. Telephone Encounter - Nan Rios M.D. - 04/24/2019 8:45 PM CDT Please forward to Dr. Diehl. This was his patient. She was briefly readmitted for headache when I saw her. Telephone Encounter - Lin Vieira - 04/24/2019 3:[address] Henry would like to know if the reason for the patient's CVA is because of the aneurysm or the PFO. The patient contacted Dr. Henry's office at [facility] for a PFO closure. Depending on your answer would decide if the patient was a candidate for PFO closure. They read your 04/04/18 hospital summary in [facility], but the answer is unclear. Their fax is [phone]. thanks documented in this encounter Plan of Treatment Not on filedocumented as of this encounter Visit Diagnoses Not on filedocumented in this encounter Additional Health Concerns Assessment Noted Time PHQ-9 Depression Total Score: 5 04/05/2019 8:00 AM CDT documented as of this encounter
--- OUTSIDE RECORDS SUMMARY | 2022-07-06 14:56 | XMS_ITS | Encounter Summary ---
:1965 Author Organization [facility] Address [address] [place] [address] Care Team Providers Name Role Phone Unavailable Primary Care Provider Unavailable Reason for Referral Outpatient (Routine) - Closed Specialty Diagnoses / Procedures Referred By Contact Refer red To Contact Neurology Robert Diehl M. D. [facility] [address] [place] [phone] Referral ID Status Reason Start Date Expiration Date Visits Requ ested Visits Authorized [id number] Closed 06/28/2019 06/27/2020 1 1 Reason for Visit Outpatient (Routine) - Closed Specialty Diagnoses / Procedures Referred By Contact Refer red To Contact Neurology Diagnoses Stroke (HCC) Thrombosis Arterial (HCC) Aneurysm Cerebral Unruptured (HCC) Fernie Soriano M.D. [facility] [address] [place] [phone] Referral ID Status Reason Start Date Expiration Date Visits Requ ested Visits Authorized [id number] Closed 03/31/2019 03/30/2020 1 1 Encounter Details Date Type Department Care Team Description 06/28/2019 Office Visit Department of Robert Diehl Fatigue ( Primary Dx); Neurology in [place] Stroke (HCC); [place], [place] 200 [facility] Thrombosis Arterial (HCC); [address] [place] [address] Aneurysm Cerebral Unruptured ([place]CC[place] [phone] Social History Tobacco Use Types Packs/Day Years [...] you attend sikh or Patient refused 2021 anabaptism services? Do you belong to any clubs [...] slept in a care home (including now)? Sex Assigned at Date Recorded Female 03/01/2019 10:12 AM CDT documented as of this encounter Progress Notes Robert Diehl M.D. - 06/28/2019 3:00 PM CDT Ms. Mosquera returns to Clinic in follow-up for her cerebral ischemic infarction. Recall she presented with scattered posterior circulation embolic shower that was very mild without deficits CT angiogram demonstrated the possibility of a mobile thrombus within the right cervical vertebral artery V4 segment transition and she is empirically anticoagulated with warfarin. 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 She has had no bleeding complications or further stroke-like symptoms in the interval period. She has cut back substantially and smoking but does still smoke approximately [address] angiogram was repeated and demonstrates a change in the appearance of the filling defect that does appear to be a reduction, however distal to this there seems to be low flow. Overall the intracranial circulation is filling fine. The cavernous ICA aneurysm is stable. IMPRESSION We discussed continue anticoagulation for another 12 weeks and then repeating the scan with a MRI instead of CT. After reviewing the interval appearance of the right vertebral artery now I wonder whether there was a dissection or possible thrombus on top of a dissection. Hopefully a follow-up MR angiogram of the neck in three months time will help us discriminate between the two. Note she does have aspinal stimulator implant however it is off and she has received MR based imaging since its implantation. This will be reviewed by our MR safety colleagues. Note she has given symptoms of fatigue which is often seen subsequent to a stroke, however I will screen her for sleep disordered breathing with an overnight oximetry. If this is abnormal I will refer her to our Sleep Center. I encouraged during congratulated her on the reduction in her cigarette use and she will begin usingthe patch in [place] with local care provider soon. Follow-up in three months time. Is a pleasure to see her do well. 35 minutes Electronically signed by: Robert Diehl M.D. 06/28/19 3:22 PM Diagnosis Plan 1. Fatigue PUL Home Overnight Oximetry 2. Stroke ([facility]) Neurology - Cerebrovascular consult (clinic) MR Neck Angiogram without and with IV Contrast PM Device interrogation (clinic) 3. Thrombosis Arterial ([facility]) Neurology - Cerebrovascular consult (clinic) MR Neck Angiogram without and with IV Contrast PM Device interrogation (clinic) 4. Aneurysm Cerebral Unruptured ([facility]) Neurology - Cerebrovascular consult (clinic) documented in this encounter Plan of Treatment Scheduled Orders Name Type Priority [facility]oses [facility] PFT Routine Fatigue Expected: 06/28/2019 Oximetry (Approximate), Expires: 06/28/2022 Scheduled Referrals Name Type Priority Associated Diagnoses Order [facility] Outpatient Referral Routine Expe cted: visit (clinic) 09/28/2019 (Approximate), Expires: 06/28/2022 documented as of this encounter Visit Diagnoses Diagnosis Fatigue - Primary Stroke (HCC) Thrombosis Arterial (HCC) Aneurysm Cerebral Unruptured (HCC) documented in this encounter Additional Health Concerns Assessment Noted Time PHQ-9 Depression Total Score: 5 04/05/2019 8:00 AM CDT documented as of this encounter
--- OUTSIDE RECORDS SUMMARY | 2022-07-06 14:56 | XMS_ITS | Encounter Summary ---
:1965 Author Organization [facility] Address [address] [place] [address] Care Team Providers Name Role Phone Unavailable Primary Care Provider Unavailable Encounter Details Date Type Department Care Team Description 10/03/2019 Clinical Communication Department of Robert Diehl, Neurology in .. [place], [place] [address] [facility] 200 [place] [phone] Social History Tobacco Use Types Packs/Day Years [...] attend roman catholic or Patient refused 2021 sabianism services? Do [...] this encounter Miscellaneous Notes Telephone Encounter - Reece Higginbotham - 10/03/2019 3:47 PM CST Coby this is for you, records request ER [employer]TER [employer] Telephone Encounter - Janis Preston R.N. - 10/03/2019 3:11 PM CST Called patient back with update about aspirin per Dr. Diehl. Patient voiced understanding that she will stop the warfarin and continue baby aspirin. She wants notes about her visit sent to her DrBrittonin [place]. Janis Preston R.N. ER [employer] Telephone Encounter - Janis Preston R.N. - 10/03/2019 2:52 PM CST Calling to relay following message from Dr. Diehl: Repeat magnetic resonance angiogram shows no change in the intraluminal irregularity concerning for thrombus. ??Given this has been six months on anticoagulation without any further event and the scan has remained stable, I think it would be reasonable to cautiously transition from anticoagulation to s flower anti-platelet agent. ??Now with the benefit of time it is not clear whether this represents true thrombus or some other artifact. ??I would recommend the patient stop anticoagulation and resume an aspirin 325 mg. She will need a noninvasive vascular image in one year's time to look at both the vertebral artery finding and the left paraclinoid aneurysm. Patient was concerned about high dose of aspirin after gastric bypass surgery, I consulted with Dr. Diehl and he recommended baby aspirin dose and warfarin discontinuation. Janis Preston R.N. ER [employer] documented in this encounter Plan of Treatment Not on filedocumented as of this encounter Visit Diagnoses Not on filedocumented in this encounter Additional Health Concerns Assessment Noted Time PHQ-9 Depression Total Score: 5 04/05/2019 8:00 AM CDT documented as of this encounter
--- OUTSIDE RECORDS SUMMARY | 2022-07-06 14:56 | XMS_ITS | Encounter Summary ---
:1965 Author Organization [facility] Address [address] [place] [address] Care Team Providers Name Role Phone Unavailable Primary Care Provider Unavailable Encounter Details Date Type Department Care Team Description 09/03/2019 Documentation Department of Neurology in Robert Fontanez M.D. [place], [place] 200 [facility] 200 [place] [phone] (Wo rk) Social History Tobacco Use Types [...] you attend buddhism or Patient refused 2021 taoist services? Do you belong to any clubs [...] or slept in a snf (including now)? Sex Assigned at Date Recorded Female 03/01/2019 10:12 AM CDT documented as of this encounter Progress Notes Robert Diehl M.D. 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 I would recommend that the patient have a contrast enhanced magnetic resonance angiogram to involve the cervical neck vessels and brain. This is for outside providers as I cannot schedule any outside scan for the patient preference. Electronically signed by: Robert Diehl M.D. 09/03/19 2:51 PM documented in this encounter Plan of Treatment Not on filedocumented as of this encounter Visit Diagnoses Not on filedocumented in this encounter Additional Health Concerns Assessment Noted Time PHQ-9 Depression Total Score: 5 04/05/2019 8:00 AM CDT documented as of this encounter
--- OUTSIDE RECORDS SUMMARY | 2022-07-06 14:56 | XMS_ITS | Encounter Summary ---
:1965 Author Organization [facility] Address [address] [place] [address] Care Team Providers Name Role Phone Unavailable Primary Care Provider Unavailable Encounter Details Date Type Department Care Team Description 06/28/2019 Hospital Encounter Department of Fernie Soriano Stroke ([facility]); Radiology in R, M.D. Thrombosis Arterial ([facility]); [place], [place] [address] [facility] Aneurysm Cerebral Unruptured ([facility]) [address] [place] [phone] Social History Tobacco Use Types Packs/Day Years [...] you attend advent or Patient refused 2021 gnosticism services? Do [...] slept in a long term (including now)? Sex Assigned at Date Recorded Female 03/01/2019 10:12 AM CDT documented as of this encounter Last Filed Vital Signs Vital Sign Reading Time Taken Comments Blood Pressure - - Pulse - - Temperature - - Respiratory Rate - - Oxygen Saturation - - Inhaled Oxygen Concentration - - Weight - - Height 152.4 cm (5') 06/28/2019 12:07 PM CDT Body Mass Index - - documented in this encounter Medications at Time [...] capsule mouth 2 (two) times a day. albuterol (ACCUNEB) 2.5 mg Inhale 1 vial [...] on Tuesday04/02/19 documented as of this encounter Nursing Notes Mandy Arana R.N. - 06/28/2019 12:22 PM CDT Patient arrived with multiple facial piercings. Refused to remove for scan. Patient understood we will do our best for CT imaging. sls documented in this encounter Plan of Treatment Not on filedocumented as of this encounter Procedures Procedure Name Priority Date/Time Associated Comments Diagnosis CT HEAD NECK RAD - Routine 06/28/2019 12:41 Stroke (HCC) Results for this ANGIOGRAM WITH IV (most inpatients PM CDT Thrombosis proced ure are in CONTRAST and all Arterial (HCC) the results outpatients) Aneurysm Cerebral section. Unruptured (HCC) documented in this encounter Results CT Head Neck Angiogram with IV Contrast (06/28/2019 12:41 PM CDT) Anatomical Region Laterality Modality Head and Neck, Neuroradiology RST LOS, Neuroradiology N/A Computed Tomography ARZ LOS, Neuroradiology FLA LOS Specimen (Source) Anatomical Collection Method Collection Time Re ceived Time Location / / Volume Laterality 06/28/2019 1:22 PM CDT Impressions 06/28/2019 1:52 PM CDT 1. Mild interval retraction of the nonocclusive thrombus in the right vertebral artery as it crosses the C1 arch. 2. New mild short segment narrowing of t he right vertebral artery downstream suggestive of vasospasm. 3. Stable left paraclinoid ICA aneurysm and tiny infundibula versus aneurysms along the inferior aspect of the left ingram praclinoid ICA. Narrative 06/28/2019 1:52 PM CDT EXAM: CT HEAD NECK ANGIOGRAM WITH IV CONTRAST COMPARISON: CTA of the head and neck 06/2019, 03/29/2019. MRA of the head 03/29/2019. FINDINGS: Transitional three-vessel branching from the aortic arch. The brachiocephalic, proximal right common carotid and subcla vian, proximal left common carotid, and segments of the vertebral arteries are o bscured by beam hardening artifact from venous contrast and spinal hardware. The visualized portion of the cervical carotid arteries appear patent with mild tortuosity and associated ectasia just below the skull base. No significant terry dence of atherosclerotic plaque or narrowing at the carotid bulbs. The previously visualized filling defect within the distal right vertebral artery, just above the C1 arch, appears mildly retracted with improved flow seen along the ventral aspect (series 6 image s [id number]). The lumen remains significantly irregular and there is new short segment narrowing of the right vertebral artery downstream suggestive o f vasospasm. Intracranially, redemonstration of a lef t paraclinoid ICA aneurysm which protrudes laterally measuring approximat arron 3.5 mm in diameter and 3.5 mm from apex to base. Stable tiny outpouchings a long the inferior aspect of the left terminal ICA, of which one represent an infundibulum while the other may represent a blister type aneurysm. The a nterior communicating and right posterior communicating arteries are pat ent. The left posterior communicating artery is not well seen. The RADHA, MCA, a nd STUDENT SERVICES REP branches are unremarkable in appearance. Stable postoperative changes of anterior and posterior cervical fusion with degenerative changes at C1-2. Stable pos toperative changes of endoscopic sinonasal surgery with increased mucosal thickening in the left maxillary sinus. Stable postoperative changes of both cherise bes. No suspicious intracranial abnormality. Patulous esophagus. Procedure Note Oxana Peña M.D. - 06/28/2019Formatt ing of this note might be different from the original. EXAM: CT HEAD NECK ANGIOGRAM WITH IV CON TRAST COMPARISON: CTA of the head and neck 06/2019, 03/29/2019. MRA of the head 03/29/2019. FINDINGS: Transitional three-vessel branching from the aortic arch. The brachiocephalic, proximal right common carotid and subcla vian, proximal left common carotid, and segments of the vertebral arteries are o bscured by beam hardening artifact from venous contrast and spinal hardware. The visualized portion of the cervical carotid arteries appear patent with mild tortuosity and associated ectasia just below the skull base. No significant terry dence of atherosclerotic plaque or narrowing at the carotid bulbs. The previously visualized filling defect within the distal right vertebral artery, just above the C1 arch, appears mildly retracted with improved flow seen along the ventral aspect (series 6 image s [id number]). The lumen remains significantly irregular and there is new short segment narrowing of the right vertebral artery downstream suggestive o f vasospasm. Intracranially, redemonstration of a lef t paraclinoid ICA aneurysm which protrudes laterally measuring approximat arron 3.5 mm in diameter and 3.5 mm from apex to base. Stable tiny outpouchings a long the inferior aspect of the left terminal ICA, of which one represent an infundibulum while the other may represent a blister type aneurysm. The a nterior communicating and right posterior communicating arteries are pat ent. The left posterior communicating artery is not well seen. The RADHA, MCA, a nd STUDENT SERVICES REP branches are unremarkable in appearance. Stable postoperative changes of anterior and posterior cervical fusion with degenerative changes at C1-2. Stable pos toperative changes of endoscopic sinonasal surgery with increased mucosal thickening in the left maxillary sinus. Stable postoperative changes of both cherise bes. No suspicious intracranial abnormality. Patulous esophagus. IMPRESSION: 1. Mild interval retraction of the nonoc clusive thrombus in the right vertebral artery as it crosses the C1 arch. 2. New mild short segment narrowing of t he right vertebral artery downstream suggestive of vasospasm. 3. Stable left paraclinoid ICA aneurysm and tiny infundibula versus aneurysms along the inferior aspect of the left ingram praclinoid ICA. Fernie NIELSON CT PROCEDURES documented in this encounter Visit Diagnoses Diagnosis Stroke (HCC) Thrombosis Arterial (HCC) Aneurysm Cerebral Unruptured (HCC) documented in this encounter Administered Medications Inactive Administered Medications - up to 3 most recent administrations Medication Order MAR Action Action Date Dose Rate Site iohexol 350 mg iodine/mL solution Given 06/28/2019 12:31 PM CDT 100 mL 1-200 mL (OMNIPAQUE) 1-200 mL, intravenous, Once in imaging, contrast, Starting on Clementine 06/28/19 at 1230, For 1 dose, Imaging Protocol Orders, Dose per Radiant Medication Guidelines sodium chloride (PF) 0.9 % injection 1-1 00 mL Given 06/28/2019 12:31 PM CDT 35 mL 1-100 mL, intravenous, Once, On Clementine 06/28/19 at 1245, For 1 dose, Imaging Protocol Orders documented in this encounter Additional Health Concerns Assessment Noted Time PHQ-9 Depression Total Score: 5 04/05/2019 8:00 AM CDT documented as of this encounter
--- OUTSIDE RECORDS SUMMARY | 2022-07-06 14:56 | XMS_ITS | Encounter Summary ---
:1965 Author Organization [facility] Address [address] [place] [address] Care Team Providers Name Role Phone Unavailable Primary Care Provider Unavailable Reason for Visit Reason Onset Date Comments MRI from [facility] 10/02/2019 Dr. Diehl Encounter Details Date Type Department Care Team Description 10/02/2019 Clinical Communication Department of Robert Diehl MR I from [place] [facility], 200 [facility] F[facility]) [place], [place] [address] [place] [phone] [place], [place] [phone] (Work) [phone] Social History Tobacco Use Types Packs/Day Years [...] you attend muslim or Patient refused 2021 episcopal services? Do [...] Notes Telephone Encounter - Coby Beatty - 10/02/2019 11:37 AM CST I talked with the radiology film room (Marlen) at [facility]. They have pushed the MRI and it should be here soon. CONTAINER FILLER documented in this encounter Plan of Treatment Not on filedocumented as of this encounter Visit Diagnoses Not on filedocumented in this encounter Additional Health Concerns Assessment Noted Time PHQ-9 Depression Total Score: 5 04/05/2019 8:00 AM CDT documented as of this encounter
--- OUTSIDE RECORDS SUMMARY | 2022-07-06 14:56 | XMS_ITS | Encounter Summary ---
:1965 Author Organization [facility] Address [address] [place] [address] Care Team Providers Name Role Phone Unavailable Primary Care Provider Unavailable Reason for Visit Reason Onset Date Comments wants to have MRI done closer to home before appt 09/03/2019 [facility] Encounter Details Date Type Department Care Team Description 09/03/2019 Clinical Communication Department of [facility] Robert cabrera nts to have MRI Neurology in [place], [place]itt[place] done closer to home [facility], [facility] before appt [place], [place] ([facility]) [address] [facility] [phone] [place], [place] [phone] (Work) [phone] Social History Tobacco Use Types Packs/Day Years [...] you attend anabaptism or Patient refused 2021 sikhism services? Do [...] Notes Telephone Encounter - Coby Beatty - 09/04/2019 8:38 AM CDT Report from Dr. Diehl and referral for MRA faxed to Dr. Blackwell at [facility] at fax [phone]. Called the patient and left a message regarding the fax to Dr. Blackwell. Telephone Encounter - Reece Higginbotham - 09/03/2019 3:30 PM CDT Coby, Please call local provider to get fax number to fax Dr. Diehl's note from today so patient can get MR done locally. Should call patient to let know that you faxed note to local provider and ask the patient if they want the MR scheduled with us cancelled. Reece Telephone Encounter - Robert Diehl M.D. - 09/03/2019 2:51 PM CDT Done note in the chart thank you Telephone Encounter - Reece Higginbotham - 09/03/2019 1:[address] Diehl, Patient doesn't want to come down here two days in a row: 09/18 MR and then 09/19 appt with you. Can you put in a note with recommended MR you want done before appointment and we can send that noteto local provider to have the testing done? OR Does the patient have to have it done here? Reece Telephone Encounter - An Herrera - 09/03/2019 12:43 PM CDT The patient called and said she would like to have her MRI done at [facility] before her appointment with Dr. Diehl on 09/19. Or if she could get her MRI scheduled for the same day as she is here for her appointment. She doesn't want to drive 2 days in a row. She wanted the order sent to Dr. Blackwell so I guess just send notes to Dr. Clemente Blackwell at [facility] Phone- [phone] documented in this encounter Plan of Treatment Not on filedocumented as of this encounter Visit Diagnoses Not on filedocumented in this encounter Additional Health Concerns Assessment Noted Time PHQ-9 Depression Total Score: 5 04/05/2019 8:00 AM CDT documented as of this encounter
--- OUTSIDE RECORDS SUMMARY | 2022-07-06 14:56 | XMS_ITS | Encounter Summary ---
:1965 Author Organization [facility] Address [address] [place] [address] Care Team Providers Name Role Phone Unavailable Primary Care Provider Unavailable Encounter Details Date Type Department Care Team Description 10/02/2019 Orders Only Department of Robert Diehl Thrombosi s Arterial Neurology in M.DBritton ([facility]) (Primary Dx) [place], [place] [address] [place] [address] 200 [place] [phone] Social History Tobacco Use Types Packs/Day Years [...] you attend voodoo or Patient refused 2021 anabaptist services? Do [...] on filedocumented as of this encounter Results Interpretation of Outside MR Neck (10/02/2019 1:01 PM ATTENDING UROLOGIST) Anatomical Region Laterality Modality Neuroradiology RST LOS, Neuroradiology ARZ LOS, N/A Magnetic Resonance Neuroradiology FLA LOS, Neck Specimen (Source) Anatomical Collection Method Collection Time Re ceived Time Location / / Volume Laterality 10/02/2019 1:03 PM ATTENDING UROLOGIST Impressions 10/02/2019 1:18 PM ATTENDING UROLOGIST Similar appearance of the distal right vertebral artery irregularity and mild narrowing at C1, r elated to the nonocclusive luminal thrombus, as seen on the prior CTA exams . MRA neck otherwise negative and unchanged. Narrative 10/02/2019 1:18 PM ATTENDING UROLOGIST EXAM: ??INTERPRETATION OF OUTSIDE MR NECK COMPARISON: ??CTA head and neck 06/28/20 19 FINDINGS: ??Outside MRA neck without and with IV contrast 09/19/2019 Comparison is difficult due to differing techniques, and metal artifact from the patient's cervical hardware results in a rtifact at the area of interest of the known distal right vertebral artery nono cclusive thrombus with narrowing at the level of C1. Gadolinium bolus MRA demons trates that this vessel remains patent, with irregularity and mild narrowing, si milar to the 06/28/2019 CTA. MRA of the neck is otherwise negative and unchanged . Procedure Note Jerica Stokes M.D. - 10/02/2019Fo rmatting of this note might be different from the original. EXAM: INTERPRETATION OF OUTSIDE MR NECK COMPARISON: CTA head and neck 06/28/2019 FINDINGS: Outside MRA neck without and w ith IV contrast 09/19/2019 Comparison is difficult due to differing techniques, and metal artifact from the patient's cervical hardware results in a rtifact at the area of interest of the known distal right vertebral artery nono cclusive thrombus with narrowing at the level of C1. Gadolinium bolus MRA demons trates that this vessel remains patent, with irregularity and mild narrowing, si milar to the 06/28/2019 CTA. MRA of the neck is otherwise negative and unchanged . IMPRESSION: Similar appearance of the distal right v ertebral artery irregularity and mild narrowing at C1, r elated to the nonocclusive luminal thrombus, as seen on the prior CTA exams . MRA neck otherwise negative and unchanged. Robert NIELSON MRI PROCEDURES documented in this encounter Visit Diagnoses Diagnosis Thrombosis Arterial (HCC) - Primary Thrombosis Arterial (HCC) documented in this encounter Additional Health Concerns Assessment Noted Time PHQ-9 Depression Total Score: 5 04/05/2019 8:00 AM CDT documented as of this encounter
--- OUTSIDE RECORDS SUMMARY | 2022-07-06 14:56 | XMS_ITS | Encounter Summary ---
:1965 Author Organization [facility] Address [address] [place] [address] Care Team Providers Name Role Phone Unavailable Primary Care Provider Unavailable Encounter Details Date Type Department Care Team Description 10/02/2019 Ancillary Procedure Department of Robert Diehl Arterial Radiology jimmy Celaya M.D. ([facility]) [place], [place] [address] [place] [address] [address] [place] [phone] Social History Tobacco Use Types Packs/Day Years [...] you attend catholic or Patient refused 2021 baptism services? Do [...] Encounter Note - Robert Diehl M.D. - 10/02/2019 3:20 PM RFID MANAGER INPUT OUTPUT CLERK: Would you please give the patient a brief call regarding below? The scan is unchanged. Repeat magnetic resonance angiogram shows no change in the intraluminal irregularity concerning for thrombus. Given this has been six months on anticoagulation without any further event and the scan has remained stable, I think it would be reasonable to cautiously transition from anticoagulation to single anti-platelet agent. Now with the benefit of time it is not clear whether this represents true thrombus or some other artifact. I would recommend the patient stop anticoagulation and resume an aspirin 325 mg. She will need a noninvasive vascular image in one year's time to look at both the vertebral artery finding and the left paraclinoid aneurysm. MANAGER documented in this encounter Plan of Treatment Not on filedocumented as of this encounter Procedures Procedure Name Priority Date/Time Associated Comments Diagnosis INTERPRETATION OF RAD - Routine 10/02/2019 1:01 Thrombosis Result s for OUTSIDE MR NECK (most inpatients PM RFID MANAGER Arterial (HCC) this p rocedure and all are in the outpatients) results section. documented in this encounter Results Interpretation of Outside MR Neck (10/02/2019 1:01 PM RFID MANAGER) Anatomical Region Laterality Modality Neuroradiology RST LOS, Neuroradiology ARZ LOS, N/A Magnetic Resonance Neuroradiology FLA LOS, Neck Specimen (Source) Anatomical Collection Method Collection Time Re ceived Time Location / / Volume Laterality 10/02/2019 1:03 PM RFID MANAGER Impressions 10/02/2019 1:18 PM RFID MANAGER Similar appearance of the distal right vertebral artery irregularity and mild narrowing at C1, r elated to the nonocclusive luminal thrombus, as seen on the prior CTA exams . MRA neck otherwise negative and unchanged. Narrative 10/02/2019 1:18 PM RFID MANAGER EXAM: ??INTERPRETATION OF OUTSIDE MR NECK COMPARISON: [...] encounter Visit Diagnoses Diagnosis Thrombosis Arterial (HCC) documented in this encounter Additional Health Concerns Assessment Noted Time PHQ-9 Depression Total Score: 5 04/05/2019 8:00 AM CDT documented as of this encounter
--- OUTSIDE RECORDS SUMMARY | 2022-07-06 14:56 | XMS_ITS | Encounter Summary ---
:1965 Author Organization [facility] Address [address] [place] [address] Care Team Providers Name Role Phone Unavailable Primary Care Provider Unavailable Reason for Visit Reason Onset Date Comments Nicotine Dependence 08/30/2019 Encounter Details Date Type Department Care Team Description 08/30/2019 Clinical Department of Tesfaye Ortega, Nicotine Janet grady Communication Nicotine Kenna D, Dependence, Jordy Alex, [facility] in [place], [place] [address] [place] [address] Social History Tobacco Use Types Packs/Day Years [...] you attend lutheran or Patient refused 2021 zoroastrian services? Do [...]
--- OUTSIDE RECORDS SUMMARY | 2022-07-06 14:56 | XMS_ITS | Encounter Summary ---
:1965 Author Organization [facility] Address [address] [place] [address] Care Team Providers Name Role Phone Unavailable Primary Care Provider Unavailable Reason for Visit Outpatient (Routine) - Closed Specialty Diagnoses / Procedures Referred By Contact Refer red To Contact Neurology Robert Diehl M. D. [facility] [address] [place] [phone] Referral ID Status Reason Start Date Expiration Date Visits Requ ested Visits Authorized [id number] Closed 06/28/2019 06/27/2020 1 1 Encounter Details Date Type Department Care Team Description 10/02/2019 Office Visit Department of Robert Diehl, Stroke (H CC) (Primary Dx); Neurology in M.D. Thrombosis Arterial (HCC) [place], [place] [address] [place] [address] [place] [phone] Social History Tobacco Use Types Packs/Day Years [...] you attend protestant or Patient refused 2021 taoism services? Do you belong to any clubs or No 05/17/2022 organizations such as protestant groups, unions, fraeMinor or athletic groups, or school groups? How [...] encounter Progress Notes Robert Diehl M.D. - 10/02/2019 11:30 AM CST Ms. 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 By report she has had a recent noninvasive vascular image consisting of a magnetic resonance angiogram completed at [facility]. Unfortunately we do not have the images or the reports today to review. She is still smoking but has cut down from 40 cigarettes a day to 10 cigarettes a day. Thankfully there have been no bleeding complications and no further stroke-like symptoms. She complains of intermittent neck pain as well as progressive visual acuity loss. IMPRESSION Prior to consideration of removing her from anticoagulation I would like to see the most recent image. Following this if we demonstrate significant resolution of the thrombus I think transitioning her to an anti-platelet agent for long- term secondary stroke prevention is in her best interest. I discussed the importance of lipid management as well as smoking cessation. She has a history of snoring suggestive of sleep disordered breathing and I encouraged her to returnthe overnight oximetry test via mail to our system so that can be analyzed. I suspect she may have sleep disordered breathing. I encouraged her to continue her smoking cessation efforts. I will reach out to her with respect to the results when I receive the image CD from the outside hospital. She has a copy of my card as well as a brief list of my recommendations. It is excellent to see her do well. 15 minutes Diagnosis Plan 1. Stroke (HCC) 2. Thrombosis Arterial (HCC) S SUPPORT ENGINEER documented in this encounter Plan of Treatment Not on filedocumented as of this encounter Visit Diagnoses Diagnosis Stroke (HCC) - Primary Thrombosis Arterial (HCC) documented in this encounter Additional Health Concerns Assessment Noted Time PHQ-9 Depression Total Score: 5 04/05/2019 8:00 AM CDT documented as of this encounter
--- OUTSIDE RECORDS SUMMARY | 2022-07-06 14:57 | XMS_ITS | Encounter Summary ---
:1965 Author Organization [facility] Address [address] [place] [address] Care Team Providers Name Role Phone Unavailable Primary Care Provider Unavailable Encounter Details Date Type Department Care Team Description 09/01/2007 - Hospital Encounter HX ARZ NO MAPPING Provider, Jadyn hough 09/02/2007 Social History Tobacco Use Types Packs/Day Years Used Date Smoking Tobacco: Never Assessed Alcohol Habits Answer Date Recorded How often [...] or relatives? How often do you attend uatsdin or Patient refused 2021 mandaen services? Do you belong to any clubs or No 05/17/2022 organizations such as uatsdin groups, unions, fraternal or athletic groups, or [...] Priority Date/Time Associated Diagnosis Comme nts CT ABDOMEN WITH IV Routine 09/02/2007 1:17 AM Res ults for this CONTRAST MST procedure are i n the results section. CT PELVIS WITH IV Routine 09/02/2007 1:17 AM Resu lts for this CONTRAST MST procedure are i n the results section. documented in this encounter Results CT Pelvis with IV Contrast (09/02/2007 1:17 AM [facility]) Anatomical Region Laterality Modality Pelvis, Abdominal RST LOS N/A Computed Tomog chato Specimen (Source) Anatomical Collection Method Collection Time Re ceived Time Location / / Volume Laterality 09/02/2007 1:17 AM [facility] Addenda Addendum by Elmo Cabrera M.D. on 03/2007 11:40 PM [facility] APPENDED REPORT - 02-Sep-2007 01 :40:00 CT Abdomen w/ Contrast CT Pelvis W Contrast Appended to link all pertinent exams to report. ? Electronically signed by: ?? Mamta Cabrera M.D. 02-Sep-2007 01:40 Narrative 09/02/2007 1:40 AM [facility] Indications: ?R/O ABCESS, POSTOP ORIGINAL REPORT - 02-Sep-2007 01:39:00 CT Abdomen w/ Contrast CT scan of the abdomen and pelvis is per formed with a small amount of oral contrast material and 120 ml of IV Omnipaque 300. FINDINGS: Open midline anterior abdomina l wound with underlying mild stranding in the subcutaneous fat. I see no evidence of a subcutaneous abscess. There is a very thin midline sliver of gas and fluid which is intraperitoneal just deep to th e muscle wall and just anterior to the left lobe of liver. This is most likely secondary to previous surgery. There are no other gas or air collections outside of the bowel. There is no evidence of extr avasation of contrast material and no evidence of obstruction. There is considerable amount of fluid in the excluded stomach extending into normal caliber duodenu m. The patient has undergone gastric byp ass with recent revision. There appears to be prompt passage of contrast material through the anastomosis and into the jejunum. Hernia repair in the left lower ab dominal wall. The liver pancreas kidneys and spleen are normal. Cholecystectomy. Postoperative changes in the lower lumbar spine and bone graft donor site is in the left ilium. Intraspinal stimulator in place. ?? This report has been electronically sign ed by Elmo Cabrera MD on Aug ??2006 ??1:39AM. ?? This report has been electronically sign ed by Elmo Cabrera MD on Aug?2006 ??1:39AM. Electronically signed by: ?? Mamta Cabrera M.D. 02-Sep-2007 01:39 Procedure Note Elmo Cabrera M.D. - 07/28/2018Formatt ing of this note might be different from the original. Indications: R/O ABCESS, POSTOP ORIGINAL REPORT - 02-Sep-2007 01:39:00 CT Abdomen w/ Contrast CT scan of the abdomen and pelvis is per formed with a small amount of oral contrast material and 120 ml of IV Omnipaque 300. FINDINGS: Open midline anterior abdomina l wound with underlying mild stranding in the subcutaneous fat. I see no evidence of a subcutaneous abscess. There is a very thin midline sliver of gas and fluid which is intraperitoneal just deep to the muscle wall and just anterior to the left lobe of liver. This is most likely secondary to previous surgery. There are no other gas or air collections outside of the bowel. There is no evidence of extravasation of contrast ma terial and no evidence of obstruction. There is considerable amount of fluid in the excluded stomach extending into normal caliber duodenum. The patient has undergone gastric bypass with recent revision. There appea rs to be prompt passage of contrast material through the anastomosis and into the jejunum. Hernia repair in the left lower abdominal wall. The liver pancreas kidneys and spleen are normal. Cholecystectomy. Post operative changes in the lower lumbar spine and bone graft donor site is in the left ilium. Intraspinal stimulator in place. This report has been electronically sign ed by Elmo Cabrera MD on Sep 02 2007 1:39AM. This report has been electronically sign ed by Elmo Cabrera MD on Sep 02 2007 1:39AM. Electronically signed by: Mamta Cabrera M.D. 02-Sep-2007 01:39 Asia Givens M.D. IMG CT PROCEDURES CT Abdomen with IV Contrast (09/02/2007 1:17 AM [facility]) Anatomical Region Laterality Modality Abdomen, Abdominal RST LOS N/A Computed Tacos graphy Specimen (Source) Anatomical Collection Method Collection Time Re ceived Time Location / / Volume Laterality 09/02/2007 1:17 AM [facility] Addenda Addendum by Elmo Cabrera M.D. on 03/2007 11:40 PM [facility] APPENDED REPORT - 02-Sep-2007 01 :40:00 CT Abdomen w/ Contrast CT Pelvis W Contrast Appended to link all pertinent exams to report. ? Electronically signed by: ?? Mamta Cabrera M.D. 02-Sep-2007 01:40 Narrative 09/02/2007 1:40 AM [facility] Indications: ?R/O ABCESS, POSTOP ORIGINAL REPORT - 02-Sep-2007 01:39:00 CT Abdomen w/ Contrast CT scan of the abdomen and pelvis is per formed with a small amount of oral contrast material and 120 ml of IV Omnipaque 300. FINDINGS: Open midline anterior abdomina l wound with underlying mild stranding in the subcutaneous fat. I see no evidence of a subcutaneous abscess. There is a very thin midline sliver of gas and fluid which is intraperitoneal just deep to th e muscle wall and just anterior to the left lobe of liver. This is most likely secondary to previous surgery. There are no other gas or air collections outside of the bowel. There is no evidence of extr avasation of contrast material and no evidence of obstruction. There is considerable amount of fluid in the excluded stomach extending into normal caliber duodenu m. The patient has undergone gastric byp ass with recent revision. There appears to be prompt passage of contrast material through the anastomosis and into the jejunum. Hernia repair in the left lower ab dominal wall. The liver pancreas kidneys and spleen are normal. Cholecystectomy. Postoperative changes in the lower lumbar spine and bone graft donor site is in the left ilium. Intraspinal stimulator in place. ?? This report has been electronically sign ed by Elmo Cabrera MD on Aug ??2006 ??1:39AM. ?? This report has been electronically sign ed by Elmo Cabrera MD on Aug ??2006 ??1:39AM. Electronically signed by: ?? Mamta Cabrera M.D. 02-Sep-2007 01:39 Procedure Note Elmo Cabrera M.D. - 07/28/2018Formatt ing of this note might be different from the original. Indications: R/O SONAL, POSTOP ORIGINAL REPORT - 02-Sep-2007 01:39:00 CT Abdomen w/ Contrast CT scan of the abdomen and pelvis is per formed with a small amount of oral contrast material and 120 ml of IV Omnipaque 300. FINDINGS: Open midline anterior abdomina l wound with underlying mild stranding in the subcutaneous fat. I see no evidence of a subcutaneous abscess. There is a very thin midline sliver of gas and fluid which is intraperitoneal just deep to the muscle wall and just anterior to the left lobe of liver. This is most likely secondary to previous surgery. There are no other gas or air collections outside of the bowel. There is no evidence of extravasation of contrast ma terial and no evidence of obstruction. There is considerable amount of fluid in the excluded stomach extending into normal caliber duodenum. The patient has undergone gastric bypass with recent revision. There appea rs to be prompt passage of contrast material through the anastomosis and into the jejunum. Hernia repair in the left lower abdominal wall. The liver pancreas kidneys and spleen are normal. Cholecystectomy. Post operative changes in the lower lumbar spine and bone graft donor site is in the left ilium. Intraspinal stimulator in place. This report has been electronically sign ed by Elmo Cabrera MD on Sep 02 2007 1:39AM. This report has been electronically sign ed by Elmo Cabrera MD on Sep 02 2007 1:39AM. Electronically signed by: Mamta Cabrera M.D. 02-Sep-2007 01:39 Asia Givens M.D. IMG CT PROCEDURES documented in this encounter Visit Diagnoses Not on filedocumented in this encounter
--- OUTSIDE RECORDS SUMMARY | 2022-07-06 14:57 | XMS_ITS | Encounter Summary ---
:1965 Author Organization [facility] Address [address] [place] [address] Care Team Providers Name Role Phone Unavailable Primary Care Provider Unavailable Encounter Details Date Type Department Care Team Description 01/15/2010 - Hospital Encounter HX ARZ NO MAPPING Leonides Du, 01/16/2010 Lilian [address] [place] [address] Social History Tobacco Use Types Packs/Day Years [...] Sig Dispensed Refills Start Date End Date ondansetron ODT Take 1 tablet by 0 01/16/2010 (ZOFRAN-ODT) 8 mg mouth 3 (three) times disintegrating tablet a day as needed for nausea. alum-mag Take 30 mL by mouth 0 01/16/201002/02 hydroxide-simeth (MAALOX every 4 (four) hours ADVANCED) 200-200-20 as needed for mg/5 mL suspension indigestion or heartburn. ARIPiprazole (ABILIFY) 2 Take 2 mg by mouth 0 03/01/2019 mg tablet daily. NON FORMULARY Take by mouth every 6 0 07/24/2009 03/29/2019 (six) hours. documented as of this encounter Plan of Treatment Not on filedocumented as of this encounter Procedures Procedure Name Priority Date/Time Associated Comments Diagnosis FL ESOPHAGRAM SINGLE Routine 01/15/2010 9:36 PM R esults for this CONTRAST MST procedure are i n the results section. documented in this encounter Results [place] Esophagram (01/15/2010 9:36 PM [facility]) Anatomical Region Laterality Modality Gastro Intestinal, Abdominal RST LOS N/A Rad iographic Imaging Specimen (Source) Anatomical Collection Method Collection Time Re ceived Time Location / / Volume Laterality 01/15/2010 9:36 PM [facility] Narrative 01/15/2010 9:43 PM [facility] Indications: ?STATUS POST GASTRIC BYPASS ORIGINAL REPORT - 15-Jan-2010 21:43:00 Esophagus: Evaluation of the distal esophagus is pe rformed using Gastrografin. There is fairly rapid flow of the contrast material through the esophageal jejunostomy filling normal caliber jejunum. There is no dil atation of the esophagus. I do not see a ny evidence of high-grade obstruction. There is only minimal residual remaining in the esophagus. The anastomosis is an end-to-side esophagojejunostomy. ?? This report has been electronically sign ed by Elmo Cabrera MD on Jan 15 2010 ??9:43PM. Electronically signed by: ?? Mamta Cabrera M.D. 15-Jan-2010 21:43 Procedure Note Elmo Cabrera M.D. - 07/24/2018Formatt ing of this note might be different from the original. Indications: STATUS POST GASTRIC BYPASS ORIGINAL REPORT - 15-Jan-2010 21:43:00 Esophagus: Evaluation of the distal esophagus is pe rformed using Gastrografin. There is fairly rapid flow of the contrast material through the esophageal jejunostomy filling normal caliber jejunum. There is no dilatation of the esophagus. I do not see any evidence of high-grade obstruction. There is only minimal residual remaining in the esophagus. The anastomosis is an end-to-side esophagojejunostomy. This report has been electronically sign ed by Elmo Cabrera MD on Jan 15 2010 9:43PM. Electronically signed by: Mamta Cabrera M.D. 15-Jan-2010 21:43 Leonides Du M.D. IMGeronimo FLUOROSCOPY PROCEDURES documented in this encounter Visit Diagnoses Not on filedocumented in this encounter
--- OUTSIDE RECORDS SUMMARY | 2022-07-06 14:57 | XMS_ITS | Encounter Summary ---
:1965 Author Organization [facility] Address [address] [place] [address] Care Team Providers Name Role Phone Unavailable Primary Care Provider Unavailable Encounter Details Date Type Department Care Team Description 08/16/2008 - Hospital Encounter HX ARZ NO MAPPING Sara Mcginnis, 08/17/2008 Lilian Social History Tobacco Use Types Packs/Day Years [...] you attend samaritan or Patient refused 2021 zoroastrianism services? Do [...] or slept in a custodial (including now)? Sex Assigned at Date Recorded Female 03/01/2019 10:12 AM CDT documented as of this encounter Plan of Treatment Not on filedocumented as of this encounter Procedures Procedure Name Priority Date/Time Associated Diagnosis Comme nts CT HEAD WITHOUT IV Routine 08/16/2008 4:22 PM Res ults for this CONTRAST MST procedure are i n the results section. DX CHEST AP OR PA Routine 08/16/2008 2:53 PM Resu lts for this AND LATERAL 2 VIEWS MST procedur e are in the results section. ECG 12-LEAD WITH Routine 08/16/2008 12:00 AM RHYTHM STRIP MST documented in this encounter Results CT Head without IV Contrast (08/16/2008 4:22 PM [facility]) Anatomical Region Laterality Modality Head, Neuroradiology RST LOS N/A Computed To mography Specimen (Source) Anatomical Collection Method Collection Time Re ceived Time Location / / Volume Laterality 08/16/2008 4:22 PM [facility] Narrative 08/16/2008 4:43 PM [facility] Indications: ?HEADACHE ORIGINAL REPORT - 16-Aug-2008 16:43:00 CT ED Head w/o contrast TECHNIQUE: Routine noncontrast head CT w as acquired in the axial plane. COMPARISON: None available. FINDINGS: Negative noncontrast head CT. ?? This report has been electronically sign ed by He Peterson MD on Aug 16 2008 ??4:42PM. Electronically signed by: ?? He Peterson MD 16-Aug-2008 16:43 Procedure Note He Peterson M.D. - 07/25/2018For matting of this note might be different from the original. Indications: HEADACHE ORIGINAL REPORT - 16-Aug-2008 16:43:00 CT ED Head w/o contrast TECHNIQUE: Routine noncontrast head CT w as acquired in the axial plane. COMPARISON: None available. FINDINGS: Negative noncontrast head CT. This report has been electronically sign ed by He Peterson MD on Aug 16 2008 4:42PM. Electronically signed by: He Peterson MD 16-Aug-2008 16:43 Conchita Arias D.O. IMG CT PROCEDURES DX Chest AP or PA and Lateral 2 Views (08/16/2008 2:53 PM [facility]) Anatomical Region Laterality Modality Chest, Thoracic RST LOS N/A Radiographic Xi ging Specimen (Source) Anatomical Collection Method Collection Time Re ceived Time Location / / Volume Laterality 08/16/2008 2:53 PM [facility] Narrative 08/16/2008 3:27 PM [facility] Indications: ?CHEST PAIN tech: Pt stated nipple rings could not b e taken out ORIGINAL REPORT - 16-Aug-2008 15:27:00 ED Chest PA & Lateral Comparison 07/06/2008. Lungs remain free of acute infiltrates or edema. Cardiac silhouette is not enlarged. Spinal stimulator and bilateral nipple rings again present. Surgical clips overlie the right upper quadrant. ?? This report has been electronically sign ed by Jeison Bundy MD on Aug 16 2008 ??3:26PM. Electronically signed by: ?? Katarina Bundy M.D. 16-Aug-2008 15:27 Procedure Note Jeison Bundy M.D. - 07/25/2018Formatt ing of this note might be different from the original. Indications: CHEST PAIN tech: Pt stated nipple rings could not b e taken out ORIGINAL REPORT - 16-Aug-2008 15:27:00 ED Chest PA & Lateral Comparison 07/06/2008. Lungs remain free of acute infiltrates or edema. Cardiac silhouette is not enlarged. Spinal stimulator and bilateral nipple rings again present. Surgical clips overlie the right upper quadrant. This report has been electronically sign ed by Jeison Bundy MD on Aug 16 2008 3:26PM. Electronically signed by: Katarina Bundy M.D. 16-Aug-2008 15:27 Conchita Arias D.O. IMG DIAGNOSTIC IMAGING PROCE DURES ECG 12 Lead with rhythm strip (08/16/2008 12:00 AM [facility]) Specimen (Source) Anatomical Location Collection Method / Collectio n Time Received Time / Laterality Volume 08/16/2008 Historical Provider ECG ORDERABLES Performing Organization Address City/State/ZIP Code Phon e Number HX [place] CONVERSION documented in this encounter Visit Diagnoses Not on filedocumented in this encounter
--- OUTSIDE RECORDS SUMMARY | 2022-07-06 14:57 | XMS_ITS | Encounter Summary ---
:1965 Author Organization [facility] Address [address] [place] [address] Care Team Providers Name Role Phone Unavailable Primary Care Provider Unavailable Encounter Details Date Type Department Care Team Description 07/29/2008 Hospital Encounter HX ARZ NO MAPPING Provider, [place]i [place] Social History Tobacco Use Types Packs/Day Years [...] you attend mandaeism or Patient refused 2021 evangelical services? Do you belong to any clubs or No 05/17/2022 organizations such as mandaeism groups, unions, fraternal or athletic groups, or [...] or slept in a correction (including now)? Sex Assigned at Date Recorded Female 03/01/2019 10:12 AM CDT documented as of this encounter Plan of Treatment Not on filedocumented as of this encounter Visit Diagnoses Not on filedocumented in this encounter
--- OUTSIDE RECORDS SUMMARY | 2022-07-06 14:57 | XMS_ITS | Encounter Summary ---
:1965 Author Organization [facility] Address [address] [place] [address] Care Team Providers Name Role Phone Unavailable Primary Care Provider Unavailable Encounter Details Date Type Department Care Team Description 06/27/2007 Hospital Encounter HX ARZ NO MAPPING Provider, [...] you attend mormon or Patient refused 2021 confucianist services? Do [...] Name Priority Date/Time Associated Diagnosis Comme nts ECG 12-LEAD WITH RHYTHM Routine 06/27/2007 12:00 AM [facility] STRIP documented in this encounter Results ECG 12 Lead with rhythm strip (06/27/2007 12:00 AM [facility]) Specimen (Source) Anatomical Location Collection Method / Collectio n Time Received Time / Laterality Volume 06/27/2007 Historical Provider ECG ORDERABLES Performing Organization Address City/State/ZIP Code Phon e Number HX [place] CONVERSION documented in this encounter Visit Diagnoses Not on filedocumented in this encounter
--- OUTSIDE RECORDS SUMMARY | 2022-07-06 14:57 | XMS_ITS | Encounter Summary ---
:1965 Author Organization [facility] Address [address] [place] [address] Care Team Providers Name Role Phone Unavailable Primary Care Provider Unavailable Encounter Details Date Type Department Care Team Description 08/22/2007 - Hospital Encounter HX ARShanna NO MAPPING Provider, Jadyn hough 08/25/2007 Social History Tobacco Use Types Packs/Day Years [...] you attend sabianism or Patient refused 2021 confucianist services? Do [...] or slept in a residential (including now)? Sex Assigned at Date Recorded Female 03/01/2019 10:12 AM CDT documented as of this encounter Plan of Treatment Not on filedocumented as of this encounter Procedures Procedure Name Priority Date/Time Associated Comments Diagnosis FL ESOPHAGRAM SINGLE Routine 08/24/2007 10:57 AM Results for this CONTRAST MST procedure are i n the results section. documented in this encounter Results FL Esophagram (08/24/2007 10:57 AM [facility]) Anatomical Region Laterality Modality Gastro Intestinal, Abdominal RST LOS N/A Rad iographic Imaging Specimen (Source) Anatomical Collection Method Collection Time Re ceived Time Location / / Volume Laterality 08/24/2007 10:57 AM [facility]ST Narrative 08/24/2007 11:41 AM [facility] Indications: ?STATUS POST GASTRIC BYPASS ORIGINAL REPORT - 24-Aug-2007 11:41:00 Esophagus Gastrografin swallow demonstrates gastri c bypass with esophagojejunostomy. No evidence of leak. No obstruction. ?? This report has been electronically sign ed by Pérez Trejo MD on Aug 24 2007 11:40AM. Electronically signed by: ?? Hema Trejo M.D. 24-Aug-2007 11:41 Procedure Note Pérez Trejo M.D. - 07/28/2018Formatt ing of this note might be different from the original. Indications: STATUS POST GASTRIC BYPASS ORIGINAL REPORT - 24-Aug-2007 11:41:00 Esophagus Gastrografin swallow demonstrates gastri c bypass with esophagojejunostomy. No evidence of leak. No obstruction. This report has been electronically sign ed by Pérez Trejo MD on Aug 24 2007 11:40AM. Electronically signed by: Hema Trejo M.D. 24-Aug-2007 11:41 Venu NIELSON FLUOROSCOPY PROCEDURES documented in this encounter Visit Diagnoses Not on filedocumented in this encounter
--- OUTSIDE RECORDS SUMMARY | 2022-07-06 14:57 | XMS_ITS | Encounter Summary ---
:1965 Author Organization [facility] Address [address] [place] [id number] Care Team Providers Name Role Phone Unavailable Primary Care Provider Unavailable Reason for Visit Reason Onset Date Comments [facility] Med Request 03/30/2019 Encounter Details Date Type Department Care Team Description 03/30/2019 [facility] Med Request Nicotine Kenna Bose M.S., [place], C.T.T.S[facility] [place], [place] [address] [place] [address] Social History Tobacco Use Types Packs/Day Years [...] you attend nondenominational or Patient refused 2021 shinto services? Do [...] slept in a skilled nursing (including now)? Sex Assigned at Date Recorded Female 03/01/2019 10:12 AM CDT documented as of this encounter Miscellaneous Notes Telephone Encounter - Kenna Christensen M.S., C.T.T.S. - 03/30/2019 2:48 PM CDT Please send the following to the [facility] 1) 14 mg patch 2) Varenicline (please include starter pack and continued pack) 3) inhaler documented in this encounter Plan of Treatment Not on filedocumented as of this encounter Visit Diagnoses Not on filedocumented in this encounter Additional Health Concerns Assessment Noted Time PHQ-9 Depression Total Score: 13 03/30/2019 1:48 PM CD T documented as of this encounter
--- OUTSIDE RECORDS SUMMARY | 2022-07-06 14:57 | XMS_ITS | Encounter Summary ---
:1965 Author Organization [facility] Address [address] [place] [address] Care Team Providers Name Role Phone Unavailable Primary Care Provider Unavailable Encounter Details Date Type Department Care Team Description 03/01/2019 Ancillary Procedure Department of Otorhinolaryngology Social History Tobacco Use Types Packs/Day Years Used Date Smoking Tobacco: Every Day Alcohol Habits Answer Date Recorded How often [...] you attend restoration or Patient refused 2021 congregation services? Do [...] slept in a nursing home (including now)? Sex Assigned at Date Recorded Female 03/01/2019 10:12 AM CDT documented as of this encounter Plan of Treatment Not on filedocumented as of this encounter Procedures Procedure Name Priority Date/Time Associated Comments Diagnosis OTORHINOLARYNGOLOGY IMAGE Routine 03/01/2019 11:10 Results for this EXAM AM CDT procedure are i n the results section. documented in this encounter Results NOSE-Otorhinolaryngology Image Exam (03/01/2019 11:10 AM CDT) Specimen (Source) Anatomical Collection Method Collection Time Re ceived Time Location / / Volume Laterality 03/01/2019 11:10 AM CDT Narrative [facility] - 03/01/2019 11:13 AM CDT This order has been created [...]
--- OUTSIDE RECORDS SUMMARY | 2022-07-06 14:57 | XMS_ITS | Encounter Summary ---
:1965 Author Organization [facility] Address [address] [place] [address] Care Team Providers Name Role Phone Unavailable Primary Care Provider Unavailable Encounter Details Date Type Department Care Team Description 08/27/2007 Hospital Encounter HX ARZ NO MAPPING Provider, [...] you attend latter-day or Patient refused 2021 mormon services? Do [...] or slept in a assisted (including now)? Sex Assigned at Date Recorded Female 03/01/2019 10:12 AM CDT documented as of this encounter Plan of Treatment Not on filedocumented as of this encounter Visit Diagnoses Not on filedocumented in this encounter
--- OUTSIDE RECORDS SUMMARY | 2022-07-06 14:57 | XMS_ITS | Encounter Summary ---
:1965 Author Organization [facility] Address [address] [place] [address] Care Team Providers Name Role Phone Unavailable Primary Care Provider Unavailable Encounter Details Date Type Department Care Team Description 09/25/2015 Hospital Encounter HX [facility] Hernesto Watson M.D. [address], [address] [place] [address] (Wo rk) Social History Tobacco Use Types [...] you attend baptist or Patient refused 2021 worship services? Do [...] or slept in a prison (including now)? Sex Assigned at Date Recorded [...] (six) hours. documented as of this encounter Nursing Notes Esther Kunz - 09/25/2015 3:36 PM CDT Appointment Patient came in to see Dr. Watson on 09-25-2015 for pain management/medications, explained to patient this isn't a pain clinic, patient then stated she didn't want to see Dr. Watson, to waste his time if he isn't a pain clinic. Patient was already checked in for appointment, but was not seen by provider. Appointment was then canceled. Electronically Signed By: ESTHER KUNZ LPN On: 09/25/2015 03:38 PM Source: [facility] POWERCHART Document Id: [id number] documented in this encounter Miscellaneous Notes Telephone Encounter - Conversion, Historical Provider Ser - 05/11/2017 11:32 AM CDT *Phone Message/Dr. Watson Document Contains Addenda Addendum by IVY BENITEZ on May 11, 2017 13:27:22 CDT From: IVY BENITEZ ( [place] [facility]) To: [facility] Medicine [facility] Rehabilitation Staff; Sent: 05/11/2017 13:27:22 CDT Subject: RE: *Phone Message/Dr. Watson Left message on patients phone regarding this appointment. Addendum by NIKKIE GANDHI LPN on May 11, 2017 12:57:21 CDT From: NIKKIE GANDHI LPN ( [facility] Staff) To: [place] [facility]; Sent: 05/11/2017 12:57:21 CDT Subject: RE: *Phone Message/Dr. Watson 27 noon, please reschedule. From: IVY BENITEZ ( [place] [facility]) To: Physical Medicine and Rehabilitation Staff; Sent: 05/11/2017 11:32:15 CDT Subject: *Phone Message/Dr. Watson Caller is: ( x) Patient ( ) Mother ( ) Father ( ) Spouse ( ) Daughter ( ) Son ( ) Pharmacy ( ) Other: Physician: Dr. Watson Patient MRN #: Reason for Call: Message: Patient called at 11:30 and states that she is not going to make her EMG appt today. She had called earlier and said that she was running late, but was going to try to make it. She now states that she has a migraine and can't come today, she would like it rescheduled [facility] since Dr. Romero wanted her to have it done. Please call her back at [phone] to advise. Advice/Action: Source used: ( ) Verbalizes understanding of instructions ( ) Instructed to call back if symptoms worsen or do not resolve ( ) Refused to see provider ( ) Appointment Scheduled ( ) OK to leave message on voice mail ( ) Patient told to expect return call: ( ) today ( ) tomorrow ( ) next work day ( ) Patient's email ( ) Patient told physician out of office, will call upon return call on ( ) ( ) Patient told physician out of office, routed to other physician ( ) Other ( ) Call back telephone number ( ) Call back cell phone number ( ) [facility] Document Id: [id number] Miscellaneous - Nikkie Gandhi, LBrittonPBrittonN. - 05/04/2017 4:19 PM CDT *General Message Document Contains Addenda Addendum by ISIDRO HI on May 04, 2017 16:42:57 CDT From: ISIDRO HI ( [place] [facility]) To: Physical Medicine and Rehabilitation Staff; Sent: 05/04/2017 16:42:57 CDT Subject: RE: *General Message Called patient and scheduled as requested. From: NIKKIE GANDHI LPN ( [facility] Staff) To: [place] [facility]; Sent: 05/04/2017 16:19:56 CDT Subject: *General Message Please call patient to schedule for bilateral upper extremity EMG. 05/11/17 at 11:45 am. 1 hour Source: Sealed Document Id: [id number] Electronically signed by Avinash [facility] [employer] [id number] at 06/01/2017 1:18 AM CDT documented in this encounter Plan of Treatment Not on filedocumented as of this encounter Visit Diagnoses Not on filedocumented in this encounter
--- OUTSIDE RECORDS SUMMARY | 2022-07-06 14:57 | XMS_ITS | Encounter Summary ---
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 [facility] [address] [place] [phone] Referral ID Status Reason Start Date Expiration Date Visits Requ ested Visits Authorized [id number] Closed 03/31/2019 03/30/2020 1 1 Reason for Visit Reason Comments Dizziness Evaluated in [place] with [place] scan. Headache Encounter Details Date Type Department Care Team Description 03/29/2019 - Hospital Encounter [facility] Alfredo Rausch M.D., M.A. [address] [place] [address] Stroke (HCC) (Primary Dx); [facility] [address] [place] [phone] Transient Ischemic Attack; [facility] [place], Nan Rios M.D. [address] [place] [phone] Thrombosis Arterial (HCC); [facility], Nicotine Dependence Cigarettes; Second floor Aneurysm Cerebral Unruptured ([facility]) [address] [place] [address] Social History Tobacco Use Types [...] you attend judaism or Patient refused 2021 hinduism services? Do [...] Sign Reading Time Taken Comments Blood Pressure 147/82 03/31/2019 1:45 PM CDT Pulse 70 03/31/2019 1:45 PM CDT Temperature 36.4 ??C (97.52 ??F) 03/31/2019 1:45 PM CDT Respiratory Rate 18 03/31/2019 1:45 PM CDT Oxygen Saturation 95% 03/31/2019 1:45 PM CDT Inhaled Oxygen Concentration - - Weight 72.6 kg (160 lb 0.9 oz) 03/29/2019 5:26 PM CDT Height 152.4 cm (5') 03/29/2019 4:00 PM CDT Body Mass Index 31.26 03/29/2019 4:00 PM CDT documented in this encounter Discharge Summaries Fernie Soriano M.D. - 03/31/2019 1:36 PM CDT DISCHARGE SUMMARY BRIEF OVERVIEW Discharge Provider: Nan Rios M.D. No primary care provider on file. Per patient, follows with Dr. Estephanie Franz in [place], [place]. 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 * DISCHARGE DISPOSITION Home or Self Care [1] ACTIVE ISSUES REQUIRING FOLLOW UP - Patient to continue enoxaparin 70 mg (1 mg/kg) BID bridge to warfarin with goal INR 2-3. Patient to receive INR checks and PCP follow-up with Dr. Franz in [place], [place], scheduled for 04/02/2019. - Please be sure to follow up with your primary care provider regarding this. - CTA in approximately 1 year (March 2020) to follow up paraclinoid ICA aneurysm - Repeat imaging in 3 months with CTA to ensure resolution of the vertebral artery thrombus. Patientto be seen by Dr. Diehl following this study. Discharge Medications TAKE these medications * albuterol 2.5 mg /3 mL nebulizer solution Commonly known as: ACCUNEB Inhale 1 vial every 6 (six) hours as needed for shortness of breath. * albuterol 90 mcg/actuation inhaler Commonly known as: PROVENTIL HFA,VENTOLIN HFA Inhale 2 puffs every 6 (six) hours as needed for wheezing or shortness of breath. ARTHRITIS PAIN RELIEF (ACETAM) 650 mg ER tablet TAKE TWO TABLETS (1300MG) BY MOUTH EVERY EIGHT HOURS Generic drug: acetaminophen atorvastatin 40 mg tablet Commonly known as: LIPITOR Take 1 tablet (40 mg total) by mouth at bedtime. benzonatate 100 mg capsule Commonly known as: TESSALON PERLES Take 200 mg by mouth 3 (three) times a day as needed for cough. biotin 5 mg tablet Take 5 mg by mouth daily. cetirizine 10 mg tablet Commonly known as: ZyrTEC Take 10 mg by mouth 2 (two) times a day. cyanocobalamin (vitamin B-12) 2,500 mcg tablet, sublingual TAKE 2 TABLETS 5000MCG BY MOUTH DAILY diazePAM 10 mg tablet Commonly known as: VALIUM Take 5-10 mg by mouth every 12 (twelve) hours as needed for anxiety or sedation. dihydroergotamine 0.5 mg/pump act. (4 mg/mL) nasal spray Commonly known as: MIGRANAL Administer 1 spray into each nostril as directed. 1 spray into each nostril as needed; may repeat every 15 minutes, max dose of 6 sprays/day; 8 sprays/week diphenhydrAMINE 25 mg capsule Commonly known as: BENADRYL Take 25-50 mg by mouth at bedtime as needed for sleep. sleep DULERA 200-5 mcg/actuation inhaler 2 puffs 2 (two) times a day. Generic drug: mometasone-formoterol enoxaparin 80 mg/0.8 mL injection Commonly known as: LOVENOX Inject 0.7 mL (70 mg total) under the skin 2 (two) times a day for 5 days[address] esomeprazole [address] capsule Commonly known as: NexIUM Take 40 mg by mouth 2 (two) times a day before breakfast and dinner. estradiol 0.1 mg/24 hr patch Commonly known as: VIVELLE-DOT APPLY 1 PATCH TWICE WEEKLY on and Tuesday FLUoxetine 20 mg capsule Commonly known as: PROzac Take 60 mg by mouth daily. fluticasone propionate 50 mcg/actuation nasal spray Commonly known as: FLONASE Administer 2 sprays into affected nostril(s) at bedtime. folic acid 800 mcg tablet Commonly known as: FOLVITE Take 800 mcg by mouth daily. furosemide 40 mg tablet Commonly known as: LASIX Take 40 mg by mouth 2 (two) times a day. lamoTRIgine 200 mg tablet Commonly known as: LaMICtal Take 200 mg by mouth 2 (two) times a day. LIDODERM 5 % Apply 1 patch to painful area of skin for up to 12 hours within a 24-hour period as needed for pain Generic drug: lidocaine LYRICA 150 mg capsule Take 150 mg by mouth 4 (four) times a day. Generic drug: pregabalin MAALOX ADVANCED 200-200-20 mg/5 mL suspension Take 30 mL by mouth every 4 (four) hours as needed for indigestion or heartburn. Generic drug: alum-mag hydroxide-simeth MAG-G 27 mg (500 mg) tablet Take 1 tablet by mouth at bedtime. Generic drug: magnesium gluconate metoclopramide 10 mg tablet Commonly known as: REGLAN Take 10 mg by mouth 3 (three) times a day as needed for nausea. * nicotine 14 mg/24 hr patch Commonly known as: NICODERM CQ Apply 14 mg patch daily for four to six weeks, then taper to 7 mg for two to six weeks until off. * nicotine 10 mg inhaler Commonly known as: NICOTROL Inhale 1 puff as needed for smoking cessation. May use several puffs each hour as needed for cravings/withdrawl symptoms oxyCODONE 5 mg immediate release tablet Commonly known as: ROXICODONE TAKE 1 TO 2 TABLETS BY MOUTH EVERY 4 6 HOURS NEEDED, MAX 5 DAY polyethylene glycol 17 gram/dose oral powder Commonly known as: MIRALAX Take 17 g by mouth at bedtime as needed for constipation. potassium chloride 10 mEq ER tablet Commonly known as: KLOR-CON M Take 20 mEq by mouth. Patient is unsure how many or how often. Pharmacy is [facility] promethazine 25 mg tablet Commonly known as: PHENERGAN Take 25 mg by mouth every 6 (six) hours as needed for nausea. RESTASIS 0.05 % ophthalmic emulsion Administer 1 drop into both eyes 2 (two) times a day. Generic drug: cycloSPORINE SPIRIVA RESPIMAT 2.5 mcg/actuation inhaler Inhale 2 puffs daily. Generic drug: tiotropium tiZANidine 2 mg tablet Commonly known as: ZANAFLEX Take 2 mg by mouth every 8 (eight) hours as needed. Muscle spasms valACYclovir 500 mg tablet Commonly known as: VALTREX Take 500 mg by mouth daily. Take 2 pills at onset of cold sore symptoms as needed * varenicline 0.5 mg (11)- 1 mg (42) tablet Commonly known as: CHANTIX JULIANE Take by mouth 2 (two) times a day. Day 1 through 3: Take 0.5 mg by mouth daily. Day 4 through 7: Take 0.5 mg two times a day. Day 8 through end: Take 1 mg two times a day. * varenicline 0.5 mg (11)- 1 mg (42) tablet Commonly known as: CHANTIX JULIANE Use as directed on package instructions, try to quit smoking after 1 week. * varenicline 1 mg tablet Commonly known as: CHANTIX Take 1 tablet (1 mg total) by mouth 2 (two) times a day. Take with full glass of water. VITAMIN D3 tablet Take 10,000 Units by mouth daily. Generic drug: cholecalciferol warfarin 5 mg tablet Commonly known as: COUMADIN Take as directed per After Visit Summary. ZOFRAN ODT 4 mg disintegrating tablet Take 1 tablet by mouth every 8 (eight) hours as needed for nausea. Generic drug: ondansetron ODT zonisamide 100 mg capsule Commonly known as: ZONEGRAN Take 300 mg by mouth 2 (two) times a day. * There are duplicate medications prescribed to the patient OUTPATIENT FOLLOW UP Future Appointments Date Time Provider Department Center 04/10/2019 2:15 PM Darlin Olmedo [facility].D. [facility] TEST RESULTS PENDING AT DISCHARGE Pending Labs Order Current Status Thrombophilia Profile Preliminary result DETAILS OF HOSPITAL STAY REASON FOR ADMISSION Stroke (HCC) Transient Ischemic Attack HOSPITAL COURSE Ms. Angie Mosquera is a 53 y.o. female with PMH including gastric bypass surgery (1999) with laparoscopic redo (2006), chronic esophageal spasm and dysmotility, recurrent sinus infections (originally scheduled for additional ENT surgery tomorrow, 03/30), bilateral occipital neuralgia, cervical spondylosis s/p fusion, chronic pain syndrome, fibromyalgia, and nicotine use who presented on 03/29/2019 with acute onset vertigo symptoms, found to have bilateral acute cerebellar/occipital infarcts on outside MRI. She reports that she woke up on 03/29/2019 at 5:45 am with balance problems and subsequent headache approximately 45 min later. She felt room was tilting and had difficulty walking. Apparently her girlfriend also felt she may have been slurring her speech at the time. She presented to [facility], where MRI/MRA head showed multiple foci of restricted diffusion in bilateral cerebellum and occipital lobes consistent with posterior circulation acute infarcts, likely embolic. 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 ?? In the ED, CT head/CTA head and neck showed a 4x9 mm mobile partially occlusive thrombus in the distal R vertebral artery. She was subsequently started on a low-intensity heparin nomogram to bridge to warfarin with goal INR 2-3, with the heparin switched to enoxaparin prior to discharge. Given her thrombus and reported family history of thrombi on her father's side, hypercoagulable labs were obtainedincluding cardiolipin and beta-2 glycoprotein, which were negative. DEVON was notable for normal left atrial size, no evidence of left atrial appendage thrombus, aortic valve strands deemed low risk for emboli, and patent foramen ovale. Given this, lower extremity US was obtained, which was negative forDVTs. Ultimately, she was discharged in stable condition on 03/31 on a statin and enoxaparin to bridgeto warfarin (goal INR 2-3). Given that the patient was discharged on a weekend, our clinical human resources benefits assistant will arrange for PCP follow-up and INR checks on Tuesday. Final NIHSS Score: 0 CONSULTS ORDERED DURING THIS ADMISSION IP CONSULT TO INTERNAL MEDICINE NICOTINE DEPENDENCE IP CONSULT TO PHYSICAL MEDICINE & REHABILITATION Most recent NIHSS Score: NIHSS Total: 0 Patient Education provided: Yes Was rehab consulted during the hospital stay: Yes For Ischemic stroke: was patient discharged on a statin? Yes CONDITION AT DISCHARGE stable Discharge instructions were provided to the patient and caregiver(s). documented in this encounter Discharge Instructions Discharge InstructionsFernie Soriano M.D. - 03/31/2019 1:12 PM CDT HOSPITAL COURSE: .??Angie Mosquera??is a 53 y.o.??female??with PMH including gastric bypass surgery (1999) with laparoscopic redo (2006), chronic esophageal spasm and dysmotility, recurrent sinus infections (originally scheduled for additional??ENT surgery tomorrow, 03/30), bilateral occipital neuralgia, cervical spondylosis s/p fusion, chronic pain syndrome, fibromyalgia, and nicotine use who presented on 03/29/2019??with acute onset vertigo symptoms, found to have bilateral acute cerebellar/occipital infarcts on outside MRI. ?? She reports that she woke up on 03/29/2019 at 5:45 am with balance problems and subsequent headache approximately 45 min later. She felt room was tilting and had difficulty walking. Apparently her girlfriend also felt she may have been slurring her speech at the time. She presented to [facility], where MRI/MRA head showed multiple foci of restricted diffusion in bilateral cerebellum and occipital lobes consistent with posterior circulation acute infarcts, likely embolic. 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 ?? In the ED, CT head/CTA head and neck showed a 4x9 mm mobile partially occlusive thrombus in the distal R vertebral artery. She was subsequently started on a low-intensity heparin nomogram to bridge to warfarin with goal INR 2-3, with the heparin switched to enoxaparin prior to discharge. Given her thrombus and reported family history of thrombi on her father's side, hypercoagulable labs were obtainedincluding cardiolipin and beta-2 glycoprotein, which were negative. DEVON was notable for normal left atrial size, no evidence of left atrial appendage thrombus, aortic valve strands deemed low risk for emboli, and patent foramen ovale. Given this, lower extremity US was obtained, which was negative forDVTs. Ultimately, she was discharged in stable condition on 03/31 on a statin and enoxaparin to bridgeto warfarin (goal INR 2-3). Given that the patient was discharged on a weekend, our clinical human resources benefits assistant will arrange for PCP follow-up and INR checks on Tuesday. RECOMMENDATIONS: - Patient to continue enoxaparin 70 mg (1 mg/kg) BID bridge to warfarin with goal INR 2-3. Patient to receive INR checks and PCP follow-up with Dr. Franz in [place], [place] as soon as possible after discharge. --- Please be sure to follow up with your primary care provider regarding this. - CTA in approximately 1 year (March 2020) to follow up paraclinoid ICA aneurysm - Repeat imaging in 3 months with CTA to ensure resolution of the vertebral artery thrombus. Patientto be seen by Dr. Diehl following this study. AppointmentsLaquita Raines - 03/30/2019 7:13 AM CDT Take a copy of this after visit summary to your appointment(s). [place], [place] April 02, 2019 - Tuesday --12:30 PM - Hospital Follow-Up with Dr. Gold MD, Colleague of Juana Franz MD, primary care provider, at [facility] RECOMMENDATIONS: * April 02, 2019 at 9:30 AM [facility] INR Check * [facility] You may have outpatient appointments at [facility] that changed during your hospitalization. Refer to your [facility] Patient Visit Guide (PVG) for the most current schedule of appointments and detailed instructions of tests/procedures. Call [phone], if you did not receive an PVG or need to CANCEL any [facility] appointment(s). You were discharged from the Neurology Stroke Service. Please Identify this service name if you callwith questions after your hospitalization. documented in this encounter Medications at Time of Discharge Medication Sig Dispensed Refills Start Date End Date albuterol (PROVENTIL Inhale 2 puffs 0 HFA,VENTOLIN HFA) 90 every 6 (six) hours mcg/actuation inhaler as needed for wheezing or shortness of breath. cetirizine (ZyrTEC) 10 mg Take 10 mg by mouth 0 tablet 2 (two) times a day. cholecalciferol (VITAMIN Take 125 mcg by 0 D3) 125 mcg (5,000 Unit) mouth every tablet morning. esomeprazole (NexIUM) 40 Take 40 mg by [...] gram/dose as needed for oral powder constipation. valACYclovir (VALTREX) 500 Take 500 mg by 0 02/22 mg tablet mouth daily. zonisamide (ZONEGRAN) 100 Take 300 mg by 8 2018 mg capsule mouth 2 (two) times a day. benzonatate (TESSALON Take 100 mg by 6 03/19/2019 PERLES) 100 mg capsule mouth 3 (three) times a day as needed for cough. diazePAM (VALIUM) 10 mg Take 10 mg by mouth 0 tablet 2 (two) times a day as needed. tiZANidine (ZANAFLEX) 4 mg Take 4-8 mg by 1 03/27 tablet mouth every 8 (eight) hours as needed for muscle spasms. Muscle spasms albuterol (ACCUNEB) 2.5 mg Inhale 1 vial [...] tablet (1300MG) BY MOUTH EVERY EIGHT HOURS biotin 5 mg tablet Take 5 mg by mouth 0 02/02/2021 every morning. cyanocobalamin, vitamin Place 2,500 mcg 3 019 02/26/2022 B-12, 2,500 mcg tablet, under the tongue sublingual every morning. estradiol (VIVELLE-DOT) APPLY 1 PATCH TWICE 11 [...] a 24-hour period as needed for pain mometasone-formoterol 2 puffs 2 (two) 0 7 02/02/2021 (DULERA) 200-5 times a day. mcg/actuation inhaler oxyCODONE (ROXICODONE) 5 1 tablet 5 times [...] Take 1 mg two times a day. nicotine (NICOTROL) 10 mg Inhale 1 puff as 168 each 3 01/201904/29/2019 inhaler needed for smoking cessation. May use several puffs each hour as needed for cravings/withdrawl symptoms varenicline (CHANTIX) 1 mg Take 1 tablet (1 mg 60 tablet 5 03/30/2019 05/29/2019 tablet total) by mouth 2 (two) times a day. Take with full glass of water. atorvastatin (LIPITOR) 40 Take 1 tablet (40 30 tablet 11 02/201902/17/2021 mg tablet mg total) by mouth at bedtime. dihydroergotamine Administer 1 spray 1 03/28/2019 02/02/2021 (MIGRANAL) 0.5 mg/pump into each nostril act. (4 mg/mL) nasal spray as directed. 1 spray into each nostril as needed; may repeat every 15 minutes, max dose of 6 sprays/day; 8 sprays/week diphenhydrAMINE (BENADRYL) Take 25-50 mg by 0 02/02/2021 25 mg capsule mouth at bedtime as needed for sleep. sleep enoxaparin (LOVENOX) 80 Inject 0.7 mL (70 9 Syringe 0 03/3104/05/2019 mg/0.8 mL injection mg total) under the skin 2 (two) times a day for 5 days. metoclopramide (REGLAN) 10 Take 10 mg by mouth 11 03/23/2019 02/02/2021 mg tablet 3 (three) times a day as needed for nausea. nicotine (NICODERM CQ) 14 Apply 14 mg patch 14 patch 3 01/201902/02/2021 mg/24 hr patch daily for four to six weeks, then taper to 7 mg for two to six weeks until off. varenicline (CHANTIX JULIANE) Use as directed on 53 tablet 0 09/12/2020 0.5 mg (11)- 1 mg (42) package tablet instructions, try to quit smoking after 1 week. warfarin (COUMADIN) 5 mg Take as directed 2 tablet 0 03/3104/05/2019 tablet per After Visit Summary. documented as of this encounter Progress Notes Jey Santana M.D. - 03/31/2019 9:22 AM CDT I stopped in to visit with the patient as she was scheduled to have sinus surgery yesterday, which was canceled due to her stroke. In reviewing the treatment plan as outlined by Neurology, she is beingbridged from heparin to warfarin with enoxaparin. I discussed with her that her sinus surgery will have to wait until her neurologist feels that it is the for her to undergo elective surgery and she can safely stop her blood thinners for 5-7 days. She will contact 's office to reschedule surgery when she meets these criteria. She will also contact us in the meantime with any sinus issues. She appreciated the visit. Pérez Ochoa Pharm.D., R.Ph. - 03/31/2019 9:02 AM CDT Warfarin Dosing Progress Note Ms. Angie Mosquera is a [age] year old female who is newly initiated on warfarin after being found to have bilateral acute cerebellar and occipital infarcts with a partially occlusive right vertebral artery thrombus. The goal INR is 2.0 to 3.0. INR is at baseline. Today is just day two warfarin dosing, will repeat the 5 mg dosage. She is receiving therapeutic dosing enoxaparin to the subcutaneous tissue as bridging anticoagulation. Pérez Gregory Pharm.D., R.Ph. Fernie Bui M.D. - 03/31/2019 7:26 AM CDT NEUROLOGY STROKE/CEREBROVASCULAR DISEASE PROGRESS NOTE Chief Complaint: Acute cerebellar/occipital infarcts on outside MRI, found to have R vertebral artery partially occlusive thrombus on CTA. SUBJECTIVE --DEVON yesterday showed PFO, but no LA enlargement or ROBE thrombus. Aortic valve strands deemed low risk for embolization. --Patient remains eager to go home. She reports being back at baseline in regards to strength, sensation, and vision. She was able to demonstrate normal gait, rest of physical exam as detailed below. OBJECTIVE VITAL SIGNS Temperature: [36.4 ??C-36.6 ??C] 36.4 ??C Heart Rate: [52-69] 69 Resp Rate: [6-19] 16 Blood Pressure: (111-155)/(72-100) 111/74 SpO2: [95 %-99 %] 95 % Flow Rate (L/min): [2 L/min] 2 L/min Pulse Rate: [52-68] 67 I/O 03/30 0000 - 03/30 2359 03/31 0000 - 03/31 2359 P.O. 480 Total Intake(mL/kg) 480 (6.6) Net +480 Unmeasured Urine Occurrence 8 x 3 x Unmeasured Stool Occurrence 8 x PHYSICAL EXAM Gen: Healthy-appearing, in good spirits, able to speak full sentences, many tattoos and piercings Lungs: CTAB CV: RRR. Normal S1 and S2, no murmurs or extra sounds. Abdominal: Soft, non-tender. Normal bowel sounds. Extremities: Warm, well perfused, no notable rashes. Multiple tattoos. No calf tenderness to palpation, no peripheral edema. ?? Neuro: MSE: Alert, attentive and oriented. Speech is clear and fluent with good repetition, comprehension, and naming. Cranial Nerves: No obvious visual field deficit. At primary gaze, there is no eye deviation. There is no diplopia. PERRL. EOMI. Light touch sensation symmetric. Face is symmetric with normal eye closure and smile. Palate elevates symmetrically. Phonation is normal. Head turning and shoulder shrug are intact. Tongue is midline with normal movements and no atrophy. Motor: There is no pronator drift. Muscle bulk and tone are normal. Upper Extremity (R/L) - deltoid 0/-1, biceps 0/0, triceps 0/0, wrist extension 0/0, finger abduction0/0 Lower Extremity (R/L) - hip flexion 0/-1, knee flexion 0/0, knee extension 0/-1, plantarflexion 0/0,dorsiflexion 0/0 Reflexes: 2+ and symmetric at the biceps, triceps, knees and ankles. Plantar responses are flexor. Sensory: Light touch intact in extremities Coordination: Rapid alternating movements and fine finger movements are intact. There is no dysmetria on yuplud-vs-jfik and utgv-tn-wami. There are no abnormal or extraneous movements. Romberg sign is absent. Gait: Posture is normal. Tandem gait demonstrated. Gait steady with normal steps, base, arm swing and turning. DIAGNOSTICS Last 3 results Lab Units 03/31/19 0803/30/19 0621 03/29/19 1404 HEMOGLOBIN g/dL 12.9 12.5 12.4 WBC x10(9)/L 5.3 4.1 4.7 PLATELETS AUTO x10(9)/L 256 245 238 Last 3 results Lab Units 03/30/19 0621 03/29/19 1404 SODIUM P mmol/L -- 142 SODIUM mmol/L 141 -- POTASSIUM P mmol/L -- 4.0 POTASSIUM mmol/L 4.1 -- CHLORIDE P mmol/L -- 107 CHLORIDE mmol/L 106 -- BICARBONATE S mmol/L 24 -- BICARBONATE PLASMA mmol/L -- 24 BUN P mg/dL -- 17 BUN mg/dL 14 -- CREATININE mg/dL 0.73 -- CREATININE P mg/dL -- 0.81 Last 3 results Lab Units 03/31/19 0812 03/30/19 1142 03/30/19 0621 03/30/19 0620 03/29/19 1646 03/29/19 1404 GLUCOSE P mg/dL -- -- -- -- -- 101 GLUCOSE S mg/dL -- -- 100 -- -- -- INR 1.0 1.0 -- -- -- -- INR2 -- -- -- 1.0 -- -- PROTHROMBIN TIME PTLTP sec 11.5 -- -- -- -- -- PROTHROMBIN TIME PTC sec -- -- -- 10.9 -- -- PROTHROMBIN TIME ILPT sec -- 11.3 -- -- -- -- APTT APTTB sec -- -- -- 57* -- -- APTT ILAPT sec -- -- -- -- 29 -- Microbiology Results (last 72 hours) No results found for the last 72 hours. Thrombophilia profile abnormal but drawn after heparin drip started. Cardiolipin and beta-[address] Head Without Iv Contrast, Ct Head Neck Angiogram With Iv Contrast Result Date: 03/29/2019 IMPRESSION: 8mm length focal filling defect in distal right vertebral artery at C1 level concerning for thrombus. Additional Diagnostic Studies Ecg 12 Lead Result Date: 03/30/[address] abnormality When compared with ECG of 24-JUL-2009 14:09, Minimal criteria for Anteroseptal infarct are no longer present ASSESSMENT / PLAN Angie Mosquera is a 53 yoF with PMH including gastric bypass surgery and redo, chronic esophagealspasm/dysmotility, recurrent sinus infections (originally scheduled ENT surgery 03/30), bilateral occipital neuralgia, cervical spondylosis s/p fusion, chronic pain syndrome, fibromyalgia, and nicotine use who presented on 03/29 with acute onset vertigo, found to have bilateral acute cerebellar/occipital infarcts on outside MRI and CTA here showed a partially occlusive R vertebral artery thrombus. Continues to show improvement in initial neurologic deficits (right superior quadrantanopsia, left facial sensory loss, LUE/LLE weakness) with patient reporting that she is back to baseline. DEVON obtained 03/30 showed normal ROBE and LA, but PFO. Given this, we will obtain LE U/S to assess for DVTs. Currently on enoxaparin bridge to warfarin. Patient will require follow-up with PCP as soon as possible aswell as INR checks early next week (to be arranged by clinical human resources benefits assistant, in-basket message sent). Will also require follow-up with Dr. Diehl in stroke clinic with pre-visit repeat CTA in 3 months to assess for resolution of thrombus. Finally, patient will need a CTA in 1 year for evaluation of incide ntally identified ICA aneurysm. Assuming negative LE U/S, patient will be discharged today with 5-day supply of enoxaparin 70 mg BID, with instructions to take warfarin, dosing per pharmacy. Other new medications started this admission include atorvastatin 40 mg qHS. UPDATE 11:54 AM, 03/31/2019: LE U/S negative for DVT. # Stroke (HCC) # Thrombosis Arterial (HCC), Right Vertebral Artery # Patent Foramen Ovale (HCC) # Aneurysm Cerebral Unruptured (HCC), ICA Aneurysm # Nicotine Dependence Cigarettes --LE U/S today 03/31 to assess for DVTs in setting of PFO identified on DEVON 03/30 (UPDATE 11:54 AM - Negative for DVT) --Continue atorvastatin 40 qhs --Continue enoxaparin 70 mg BID bridge to warfarin with INR goal 2-3. --Cardiac monitoring, Holter ordered 03/30. Patient given instructions on how to mail in monitor. --Will arrange for PCP appt (Dr. Franz, [place], [place]) for INR monitoring 04/02 or earliest available next week --Will need outpatient follow up imaging (CTA in 1 year) for her left ICA aneurysm --Nicotine dependence consultation, although unlikely to be done prior to discharge. Counseled patient on high importance of tobacco cessation. --PMR/OT/PT Brain Rehabilitation consult. PT evaluated patient 03/30 and deemed safe for discharge home. ?? # Anxiety Generalized Disorder # Chronic Pain Syndrome # Fibromyalgia # Gastric Bypass Status Post # Esophageal Motility Disorder # Sinusitis Recurrent # Cervical Spine Disorder # Fusion Cervical Spine Status Post --Continue home meds, appreciate pharmacy's help with med rec Diet: general, passed bedside dysphagia evaluation 03/29 Tubes/lines: PIV VTE prophylaxis: therapeutic anticoagulation Code status: Full Code Disposition: likely home with expected discharge date today 03/31 Fernie Soriano M.D. 03/31/19 Please page the neurology stroke/cerebrovascular disease service pager [phone]) with any questions orconcerns. Kylie Rubio R.N. - 03/30/2019 2:59 PM CDT Patient discussed at Stroke Multidisciplinary Rounds. Plan for the day: DEVON, Labs, PMR/OT/PT/Brain Rehab consult Plan for the Stay: stroke w/u Discharge barriers: Inpatient testing Recommended discharge disposition: [facility]- date pending Trent Ferrer M.D. - 03/30/2019 7:22 AM CDT NEUROLOGY STROKE/CEREBROVASCULAR DISEASE PROGRESS NOTE Chief Complaint: Acute cerebellar/occipital infarcts on outside MRI, found to have R vertebral artery partially occlusive thrombus SUBJECTIVE No acute events overnight, chronic 7-07/07 fibromyalgia pain treated with home p.r.n.s (received 1 dose of 5 mg oxycodone at midnight, 1 at 6:30 a.m.). Plan for DEVON today, 03/30. Continues on low intensity heparin nomogram, will likely start warfarin today, 03/30, and bridge with enoxaparin. Heart rate in the 40s to 50s overnight, but with appropriate blood pressure, oxygen saturation, respiratory rate. Feels better this AM with regards to balance. Eager to go home. OBJECTIVE VITAL SIGNS Temperature: [36.1 ??C-36.6 ??C] 36.1 ??C Heart Rate: [45-86] 47 Resp Rate: [12-28] 13 Blood Pressure: (106-139)/(52-82) 123/73 SpO2: [96 %-98 %] 96 % Pulse Rate: [19-83] 50 I/O 03/28 - 03/28 - 03/29 - 03/30 2359 Continuous Medications 14.2 Total Intake(mL/kg) 14.2 (0.2) Net +14.2 Unmeasured Urine Occurrence 3 x 3 x Unmeasured Emesis Occurrence 1 x PHYSICAL EXAM Gen: Healthy-appearing, in good spirits, able to speak full sentences, many tattoos and piercings Lungs: CTAB CV: Good S1 and S2, no murmurs or extra sounds. Abdominal: Soft, non tender; no masses or organomegaly. Extremities: Warm, well perfused, no notable rashes MSK: Good ROM. No swelling or deformity noted. ?? Neuro: MSE: Alert, attentive and oriented. Speech is clear and fluent with good repetition, comprehension, and naming. Cranial Nerves: No obvious visual field deficit. At primary gaze, there is no eye deviation. There is no diplopia. PERRL. EOMI. Light touch sensation symmetric. Face is symmetric with normal eye closure and smile. Hearing is normal to rubbing fingers. Palate elevates symmetrically. Phonation is normal. Head turning and shoulder shrug are intact. Tongue is midline with normal movements and no atrophy. Motor: There is no pronator drift. Muscle bulk and tone are normal. Upper Extremity (R/L) - deltoid 0/-1, biceps 0/-1, triceps 0/-1, wrist extension 0/0, finger abduction 0/0 Lower Extremity (R/L) - hip flexion 0/-1, knee flexion 0/0, knee extension 0/-1, plantarflexion 0/0,dorsiflexion 0/0 Reflexes: 2+ and symmetric at the biceps, triceps, knees and ankles. Plantar responses are flexor. Sensory: Light touch intact in extremities Coordination: Rapid alternating movements and fine finger movements are intact. There is no dysmetria on [id number] and [id number]. There are no abnormal or extraneous movements. Romberg is absent. Gait: Tandem gait improved from admission. Posture is normal. Gait steady with normal steps, base, arm swing and turning. Heel and toe walking are normal. DIAGNOSTICS Last 3 results Lab Units 03/30/19 0603/29/19 1404 HEMOGLOBIN g/dL 12.5 12.4 WBC x10(9)/L 4.1 4.7 PLATELETS AUTO x10(9)/L 245 238 Last 3 results Lab Units 03/30/19 0603/29/19 1404 SODIUM P mmol/L -- 142 SODIUM mmol/L 141 -- POTASSIUM P mmol/L -- 4.0 POTASSIUM mmol/L 4.1 -- CHLORIDE P mmol/L -- 107 CHLORIDE mmol/L 106 -- BICARBONATE S mmol/L 24 -- BICARBONATE PLASMA mmol/L -- 24 BUN P mg/dL -- 17 BUN mg/dL 14 -- CREATININE mg/dL 0.73 -- CREATININE P mg/dL -- 0.81 Last 3 results Lab Units 03/30/19 0621 03/30/19 0620 03/29/19 1646 03/29/19 1404 GLUCOSE P mg/dL -- -- -- 101 GLUCOSE S mg/dL 100 -- -- -- INR2 -- 1.0 -- -- PROTHROMBIN TIME PTC sec -- 10.9 -- -- APTT APTTB sec -- 57* -- -- APTT ILAPT sec -- -- 29 -- Microbiology Results (last 72 hours) No results found for the last 72 hours. Thrombophilia profile abnormal but drawn after heparin drip started Cardiolipin and beta-[address] Head Without Iv Contrast, Ct Head Neck Angiogram With Iv Contrast Result Date: 03/29/2019 Impression: IMPRESSION: 8mm length focal filling defect in distal right vertebral artery at C1 levelconcerning for thrombus. Findings discussed at 2:03 p.m with pager [phone] Additional Diagnostic Studies Ecg 12 Lead Result Date: 03/30/[address] abnormality When compared with ECG of 24-JUL-2009 14:09, Minimal criteria for Anteroseptal infarct are no longer present ASSESSMENT / PLAN Angie Mosquera is a 53 yoF with PMH including gastric bypass surgery and redo, chronic esophagealspasm/dysmotility, recurrent sinus infections (originally scheduled ENT surgery 03/30), bilateral occipital neuralgia, cervical spondylosis S/P fusion, chronic pain syndrome, fibromyalgia, and nicotine use who presents 03/29 with acute onset vertigo, found to have bilateral acute cerebellar/occipital infarcts on outside MRI and CTA here showed a partially occlusive R vertebral artery thrombus. On low-intensity heparin nomogram with plan to bridge to warfarin with enoxaparin and re-image in 3-6 months. Also needs 1 year CTA for ICA aneurysm. # Stroke (HCC) # Thrombosis Arterial (HCC) A1c 5.6, LDL 92, TSH 1.6. -Low intensity heparin nomogram currently, switching to enoxaparin 5/ evening and will d/c on that to bridge to warfarin with goal INR 2-3. Would plan to re- image in 3-6 months. --Setting up PCP apt for INR monitoring 04/02 -Cardiac monitoring, Holter ordered 03/30 -Will need outpatient follow up imaging (CTA in 1 year) for her left ICA aneurysm -Blood pressure goal < 220/110. -Nicotine dependence consultation -DEVON to assess for cardioembolic source planned for 03/30 -PMR/OT/PT Brain Rehabilitation consult. -f/u hypercoagulability labs -started atorvastatin 40 qhs ?? # Anxiety Generalized Disorder # Chronic Pain Syndrome # Fibromyalgia # Gastric Bypass Status Post # Esophageal Motility Disorder # Sinusitis Recurrent # Cervical Spine Disorder # Fusion Cervical Spine Status Post - Continue home meds, appreciate pharmacy's help with med rec ?? # Nicotine Dependence Cigarettes - Nicotine dependence consult placed Diet: NPO for DEVON, regular after Tubes/lines: PIV VTE prophylaxis: therapeutic anticoagulation Code status: Full Code Disposition: likely home with expected discharge date likely 03/31 Trent Ferrer M.D. 03/30/19 Please page the neurology stroke/cerebrovascular disease service pager [phone]) with any questions orconcerns. documented in this encounter H&P Notes Robert Diehl M.D. - 03/30/2019 11:00 AM CDT I have reviewed the history, examination, and plan of care of the resident physician's note as documented on the electronic neurologic examination and history. I have personally interviewed and examined the patient. I agree with the documentation, other than where indicated in my note. In summary Ms. Mosquera is a 53-year-old woman multiple chronic medical issues ongoing smoking who presented with an episode of gait unsteadiness upon awakening on the day of presentation and came to [facility], although head CT did not demonstrate any focal intracranial process a follow-up MRI showed foci of scattered punctate infarcts respecting the posterior circulation. She transferred to our emergency department because CT angiogram is unavailable at the local facility. A CT angiogram demonstrated the possibility of a mobile thrombus in the V4 segment of the right vertebral artery.There is no prior imaging to compare to. I reviewed the images it is present on a couple of different sequences, and with the history of the recent posterior circulation infarcts I favor thrombus over chronic dissection fenestration or other benign for finding. The remainder of the history is unremarkable for hypercoagulable state, systemic findings concerningfor subacute bacterial endocarditis, illicit drug use, or prior stroke. On examination this morning she is back to baseline, she stood and walked in tandem gait without breaking stance there is no dysarthria nystagmus she has full strength in all extremities. Impression Embolic stroke of unknown source complicated by arterial intraluminal mobile thrombus. I will recommend anticoagulation with goal INR 2-3 for 3-6 months and repeat noninvasive vascular imaging to ensure resolution of the lesion. She will bridge to therapeutic with a heparin drip. Echocardiogram cardiac monitoring and vascular risk factor profile, hypercoagulable studies. Begin statin for LDL. A 2nd issue is the presence of an unruptured intracerebral aneurysm that was discovered on the CT angiogram. This will require surveillance with a one year follow-up image. We discussed the pathophysiology of unruptured intracerebral aneurysms as they relate to her ongoing smoking, it is critical thatshe stop smoking to prevent aneurysmal growth. Additionally hypertension should be treated with goalblood pressure less than 140 mmHg. Time spent 50 minutes Robert Diehl M.D. 03/30/19 11:00 AM Patient Active Problem List Diagnosis ??? Rhinosinusitis Chronic ??? Stroke (HCC) ??? Anxiety Generalized Disorder ??? Chronic Pain Syndrome ??? Fibromyalgia ??? Gastric Bypass Status Post ??? Esophageal Motility Disorder ??? Sinusitis Recurrent ??? Cervical Spine Disorder ??? Fusion Cervical Spine Status Post ??? Nicotine Dependence Cigarettes ??? Thrombosis Arterial (HCC) ??? Transient Ischemic Attack ??? Aneurysm Ruptured Cerebral Nontraumatic (HCC) Trent Ferrer M.D. - 03/29/2019 2:02 PM CDT STROKE/CEREBROVASCULAR NEUROLOGY ADMISSION NOTE SUBJECTIVE CHIEF COMPLAINT Ms. Angie Mosquera is a 53 y.o. female with PMH including gastric bypass surgery (1999) with laparoscopic redo (2006), chronic esophageal spasm and dysmotility, recurrent sinus infections (originally scheduled for additional ENT surgery tomorrow, 03/30), bilateral occipital neuralgia, cervical spondylosis S/P fusion, chronic pain syndrome, fibromyalgia, and nicotine use who presents 03/29 with acute onset vertigo symptoms, found to have bilateral acute cerebellar/occipital infarcts on outside MRI HISTORY OF PRESENT ILLNESS Patient reports that she woke up this morning at 5:45 a.m. feeling like her body was drunk, and developed a headache approximately 45 min later. [place] room was tilting, not spinning, and had difficulty walking, had to grab onto furniture. Apparently girlfriend also felt she may have been slurring her speech at the time. Ms Mosquera also had some chest pain and shortness of breath with the episode, but this has resolved. She describes the headache as a migraine. Says she has had more headaches in the last 2 weeks, increasing in severity with sensitivity to light but not sound. They start in varying places. Currently headache is much improved, dull and mild now. She presented to [facility], where MRI/MRA head showed multiple foci of restricted diffusion in bilateral cerebellum and occipital lobes consistent with posterior circulation acute infarcts, likely embolic. There was also a 5x5 mm saccular aneurysm projecting laterally from L paraclinoid ICA. In the ED, was hemodynamically stable with baseline left leg weakness, and was still having an occipital bilateral headache. Went for CT head/CTA head and neck, found to have a 4x9 mm mobile partially occlusive thrombus in the distal R vertebral artery. Denied any fevers, chills, weight changes. Endorsed some numbness/tingling in the finger tips in both hands for approximately 1 year. Also endorses left arm weakness for a couple of months, and more chronic left leg weakness secondary to sciatic pain. Says her sense of taste is poor, and mouth has been dry for months. Mild chronic cough which is improved overall, no shortness of breath or chest pain now. Mild SOB and chest pain with the above episode. Heme, GI, , Psych ROS negative. I have reviewed and updated the following: Past Medical History: Diagnosis Date ??? Anemia ??? Anxiety Generalized Disorder ??? Asthma NOS ??? Chronic Pain Syndrome ??? Fibromyalgia ??? Pain Back Past Surgical History: Procedure Laterality Date ??? BACK SURGERY ??? BARIATRIC SURGERY ??? CARPAL TUNNEL RELEASE ??? CHOLECYSTECTOMY ??? HYSTERECTOMY ??? KNEE ARTHROPLASTY ??? OTHER CONVERTED SHX (SEE COMMENT) N/A 05/21/2008 >Esophagogastroduodenoscopy with biopsy and dilation. ??? SHOULDER SURGERY No family history on file. Social History Social History ??? Marital status: Spouse name: N/A ??? Number of children: N/A ??? Years of education: N/A Social History Main Topics ??? Smoking status: Current Every Day Smoker ??? Smokeless tobacco: Never Used Comment: Since teens, used to be 2 ppd, now 1/2 ppd. Roughly 40 pack year estimate ??? Alcohol use No ??? Drug use: Yes Types: Marijuana Comment: Medical marijuana ??? Sexual activity: Not Currently Comment: Last partner approximately 4 years ago, denies STD history Other Topics Concern ??? None Social History Narrative Lives alone Allergies Allergen Reactions ??? Adhesive Other (see comments) Adhesive they use to close during surgery. And Tagaderm ??? Adhesive Tape-Silicones Other (see comments) Dermabond (and 3 other glues) and Tagaderm ??? Amoxicillin Rash ??? Benzoin Other (see comments) ??? Cefaclor Rash ??? Chlorhexidine Dermatitis ??? Fentanyl Hallucinations ??? Gabapentin Other (see comments) Dropped things Feels weird ??? Nortriptyline Palpitations And heart racing ??? Nsaids (Non-Steroidal Anti-Inflammatory Drug) Other (see comments) Gastric bypass ??? Pollen Extracts Other (see comments) Other Intolerances Line - Fentanyl causes hallucinations so not a true allergy.; ??? Soy Rash Patient states only slight allergy ??? Sulfamethoxazole-Trimethoprim Nausea Only Stomach upset ??? Tegaderm Ag Mesh [Silver] Other (see comments) ??? Acyclovir Rash ??? Cephalosporins Rash Prescriptions Prior to Admission Medication Sig Last Dose ??? albuterol (ACCUNEB) 2.5 mg /3 mL nebulizer solution Inhale 1 vial. 03/28/2019 at Unknown time ??? alum-mag hydroxide-simeth (MAALOX ADVANCED) 200-200-20 mg/5 mL suspension Take 30 mL by mouth 4 (four) times a day before meals and bedtime. 03/28/2019 at Unknown time ??? ARTHRITIS PAIN RELIEF, ACETAM, 650 mg ER tablet TAKE TWO TABLETS 1300MG BY MOUTH EVERY EIGHT HOURS 03/28/2019 at Unknown time ??? biotin 1 mg tablet Take 5 mg by mouth. 03/28/2019 at Unknown time ??? cetirizine (ZyrTEC) 10 mg tablet Take 10 mg by mouth. 03/28/2019 at Unknown time ??? cholecalciferol (VITAMIN D3) 5,000 Unit capsule TAKE TWO CAPSULES 10,000 BY MOUTH DAILY 03/28/2019at Unknown time ??? cyanocobalamin (VITAMIN B12) 1,000 mcg tablet Take 5,000 mcg by mouth. 03/28/2019 at Unknown time ??? cyanocobalamin, vitamin B-12, 2,500 mcg tablet, sublingual TAKE 2 TABLETS 5000MCG BY MOUTH DAILY03/28/2019 at Unknown time ??? esomeprazole (NexIUM) [address] capsule 03/28/2019 at Unknown time ??? estradiol (ESTRACE) 0.1 mg/g (0.01%) vaginal cream Pea size on a finger to the vagina [facility] Past Week at Unknown time ??? estradiol (VIVELLE-DOT) 0.1 mg/24 hr patch APPLY 1 PATCH TWICE WEEKLY 03/28/2019 at Unknown time ??? FLUoxetine (PROzac) 20 mg capsule Take 40 mg by mouth. 03/28/2019 at Unknown time ??? fluticasone propionate (FLONASE) 50 mcg/actuation nasal spray Administer 2 sprays into affected nostril(s). 03/28/2019 at Unknown time ??? folic acid (FOLVITE) 800 mcg tablet Take 800 mcg by mouth daily. 03/28/2019 at Unknown time ??? furosemide (LASIX) 40 mg tablet 03/28/2019 at Unknown time ??? HYDROcodone-acetaminophen (NORCO) 5-325 mg per tablet Take 1 tablet by mouth. 03/28/2019 at Unknown time ??? hydrocortisone (HYTONE) 2.5 % cream Apply topically. Past Week at Unknown time ??? INNOSPIRE ESSENCE device See Admin Instructions. Past Month at Unknown time ??? ipratropium-albuterol (DUO-NEB) 0.5-2.5 mg/3 mL nebulizer solution NEBULIZE CONTENTS OF 1 VIAL FOUR TIMES A DAY 03/28/2019 at Unknown time ??? lamoTRIgine (LaMICtal) 200 mg tablet Take 200 mg by mouth 2 (two) times a day. 03/28/2019 at Unknown time ??? lidocaine (LIDODERM) 5 % Apply 1 patch to painful area of skin for up to 12 hours within a 24-hour period. Past Month at Unknown time ??? MAG-G 27 mg magnesium (500 mg) tablet Take 1 tablet by mouth at bedtime. 03/28/2019 at Unknown time ??? mometasone-formoterol (DULERA) 200-5 mcg/actuation inhaler 03/28/2019 at Unknown time ??? ondansetron ODT (ZOFRAN ODT) 4 mg disintegrating tablet Take 1 tablet by mouth every 8 (eight) hours as needed. 03/28/2019 at Unknown time ??? oxyCODONE (ROXICODONE) 5 mg immediate release tablet TAKE 1 TO 2 TABLETS BY MOUTH EVERY 4 6 HOURS NEEDED, MAX 5 DAY 03/28/2019 at Unknown time ??? polyethylene glycol (MIRALAX) 17 gram/dose oral powder Take 17 g by mouth. 03/28/2019 at Unknown time ??? potassium chloride (KLOR-CON M) 10 mEq ER tablet Take 20 mEq by mouth. 03/28/2019 at Unknown time ??? pregabalin (LYRICA) 150 mg capsule 03/28/2019 at Unknown time ??? promethazine (PHENERGAN) 25 mg tablet Take 25 mg by mouth. Past Week at Unknown time ??? RESTASIS 0.05 % ophthalmic emulsion Administer 1 drop into both eyes 2 (two) times a day. Past Week at Unknown time ??? SPIRIVA RESPIMAT 2.5 mcg/actuation inhaler 03/28/2019 at Unknown time ??? SYMBICORT 160-4.5 mcg/actuation inhaler 03/28/2019 at Unknown time ??? triamcinolone (KENALOG) 0.5 % ointment Apply topically. 03/28/2019 at Unknown time ??? valACYclovir (VALTREX) 500 mg tablet Take 500 mg by mouth. Past Month at Unknown time ??? VENTOLIN HFA 90 mcg/actuation inhaler INHALE 2 4 PUFFS EVERY FOUR HOURS NEEDED 03/28/2019 at Unknown time ??? zonisamide (ZONEGRAN) 100 mg capsule Take 300 mg by mouth 2 (two) times a day. 03/28/2019 at Unknown time ??? zonisamide, bulk, 100 % powder Take 300 mg by mouth. 03/28/2019 at Unknown time ??? acetaminophen-codeine (TYLENOL #3) 300-30 mg per tablet TAKE 1 2 TABLETS BY MOUTH EVERY 4 HOURS NEEDED ??? CHANTIX STARTING MONTH BOX 0.5 mg (11)- 1 mg (42) tablet TAKE ONE TABLET BY MOUTH DIRECTED TITRATE DIRECTED ON PACKAGE More than a month at Unknown time ??? diazePAM (VALIUM) 10 mg tablet More than a month at Unknown time ??? diphenhydrAMINE (BENADRYL) 25 mg capsule Take 25-50 mg by mouth. More than a month at Unknown time ??? NON FORMULARY Take 1 capsule by mouth. ??? NON FORMULARY Take by mouth every 6 (six) hours. ??? NON FORMULARY Take 1 tablet by mouth. ??? NON FORMULARY Take 1 tablet by mouth. ??? SUMAtriptan (IMITREX) 25 mg tablet Take 25 mg by mouth. ??? VIRTUSSIN AC 10-100 mg/5 mL liquid TAKE 5 10ML BY MOUTH EVERY SIX HOURS NEEDED FOR COUGH AT NIGHT REVIEW OF SYSTEMS Pertinent items are noted in HPI; all other review of systems was negative. OBJECTIVE VITAL SIGNS Temperature: [36.3 ??C-36.6 ??C] 36.3 ??C Resp Rate: [18] 18 Blood Pressure: (106-116)/(61-76) 116/75 SpO2: [96 %] 96 % Height: [152.4 cm] 152.4 cm Weight: [72.6 kg] 72.6 kg BMI (Calculated): [31.3 kg/m??] 31.3 kg/m?? Pulse Rate: [56-61] 56 I/O 03/28 0000 - 03/28 2359 / - 03/29 2359 Unmeasured Urine Occurrence 1 x PHYSICAL EXAM Gen: Healthy-appearing, in good spirits, able to speak full sentences, many tattoos and piercings Eyes: Sclera white, conjunctiva pink. PERRLA, EOMI. Throat: Oral mucosa pink, pharynx without exudates. Neck: Trachea midline. Lungs: Symmetric expansion. Lungs resonant. breath sounds vesicular; no notable rales, wheezes or rhonchi. CV: Good S1 and S2, no murmurs or extra sounds. Abdominal: Soft, non tender; no masses or organomegaly. No CVA tenderness. Extremities: Warm, well perfused MSK: Good ROM. No swelling or deformity noted. Skin: Color good, skin warm and moist. No rashes. Neuro: MSE: Alert, attentive and oriented. Speech is clear and fluent with good repetition, comprehension, and naming. Cranial Nerves: Right superotemporal quadrantanopia. At primary gaze, there is no eye deviation. There is no diplopia. PERRL. EOMI. Mild decreased sensation V1 and V2 L. Face is symmetric with normal eye closure and smile. Hearing is normal to rubbing fingers. Palate elevates symmetrically. Phonation is normal. Head turning and shoulder shrug are intact. Tongue is midline with normal movements and noatrophy. Motor: There is no pronator drift. Muscle bulk and tone are normal. Upper Extremity (R/L) - deltoid 0/-1, biceps 0/-1, triceps 0/-1, wrist extension 0/0, finger abduction 0/0 Lower Extremity (R/L) - hip flexion 0/-1, knee flexion 0/0, knee extension 0/-1, plantarflexion 0/0,dorsiflexion 0/0 Reflexes: 2+ and symmetric at the biceps, triceps, knees and ankles. Plantar responses are flexor. Sensory: Light touch, pinprick, position sense and vibration sense are intact in extremities Coordination: Rapid alternating movements and fine finger movements are intact. There is no dysmetria on [id number]-[id number] and [id number]-vx-[id number]. There are no abnormal or extraneous movements. Romberg is absent. Gait: Mild difficulty with tandem gait. Posture is normal. Gait otherwise steady with normal steps, base, arm swing and turning. Heel and toe walking are normal. NIH Stroke Scale 1A. LOC: 0=alert; keenly responsive 1B. Questions: 0=answers both questions correctly 1C. Commands: 0=Performs both tasks correctly 2. Best Gaze: 0=normal 3. Visual: 1=Partial hemianopia 4. Facial Palsy: 0=Normal symmetric movement 5A. [...] 11. Extinction: 0=No abnormality TOTAL SCORE: 1 DIAGNOSTICS Recent Results (from the past 72 hour(s)) Basic Metabolic Panel Collection Time: 03/29/19 2:04 PM Result Value Potassium, P 4.0 Sodium, P 142 Chloride, P 107 Bicarbonate, P 24 Anion Gap, P 11 BUN, P 17 Creatinine, P 0.81 eGFR Black >90 eGFR Non-Black 82 Calcium, Total 8.7 Glucose, P 101 CBC with Differential, Blood Collection Time: 03/29/19 2:04 PM Result Value Hemoglobin 12.4 Hematocrit 37.0 Erythrocytes 3.79 (L) MCV 97.6 RBC Distrib Width 13.3 Platelet Count 238 Leukocytes 4.7 Neutrophils 2.33 Lymphocytes 1.74 Monocytes 0.32 Eosinophils 0.22 Basophils 0.04 APTT (Activated Partial Thromboplastin Time) Collection Time: 03/29/19 4:46 PM Result Value Activated Partial Thrombopl Time, P 29 Microbiology Results (last 72 hours) No results found for the last [address] Head Without Iv Contrast, Ct Head Neck Angiogram With Iv Contrast Result Date: 03/29/2019 Impression: IMPRESSION: 8mm length focal filling defect in distal right vertebral artery at C1 levelconcerning for thrombus. Findings discussed at 2:03 p.m with pager [phone] Additional Diagnostic Studies ASSESSMENT / PLAN Ms. Angie Mosquera is a 53 yoF with PMH including gastric bypass surgery and redo, chronic esophageal spasm/dysmotility, recurrent sinus infections (originally scheduled ENT surgery 03/30), bilateral occipital neuralgia, cervical spondylosis S/P fusion, chronic pain syndrome, fibromyalgia, and nicotine use who presents 03/29 with acute onset vertigo symptoms, found to have bilateral acute cerebellar/occipital infarcts on outside MRI and CTA in our ED showed a vertebral artery thrombus. Will start low-intensity heparin nomogram with plan to transition to warfarin and re-image in 3 months. Will also obtain DEVON, TSH, A1C, lipids. # Stroke (HCC) # Thrombosis Arterial (HCC) -Low intensity heparin nomogram, will likely transition to warfarin and reimage in 3 months -Cardiac monitoring -Will need outpatient follow up imaging for her left ICA aneurysm -Blood pressure goal < 220/110.. -Will check TSH, HbA1c, fasting lipids -Nicotine dependence consultation -DEVON to assess for cardioembolic source --NPO at midnight -PMR/OT/PT Brain Rehabilitation consult. -check hypercoagulable labs (thrombophilia profile, cardiolipin, lupus anticoagulant, beta-2 glycoprotein) # Anxiety Generalized Disorder # Chronic Pain Syndrome # Fibromyalgia # Gastric Bypass Status Post # Esophageal Motility Disorder # Sinusitis Recurrent # Cervical Spine Disorder # Fusion Cervical Spine Status Post - Continue home meds # Nicotine Dependence Cigarettes - Nicotine dependence consult placed Diet: general diet, NPO at IN for DEVON Tubes/lines: Will place PIV VTE prophylaxis: therapeutic anticoagulation Code status: Full Code Disposition: Likely Home with expected discharge date pending Trent Ferrer M.D. 03/29/19 Please page the stroke/cerebrovascular neurology service pager [phone]) for any questions or concerns. STROKE DOCUMENTATION: Stroke Center Measures: Did this patient have a possible stroke/TIA/hemorrhage?: Yes Type of stroke: Ischemic stroke/Transient ischemic attack Date of NIHSS completed: 03/29/2019 Time of NIHSS completed: 17:30 Admission NIHSS total score: 1 Date patient last known well: 03/28/2019 Time patient last known well: 23:00 Onset of symptoms - date: 03/29/2019 Onset of symptoms - time: 05:45 IV Alteplase candidate?: No Reason not a candidate: Mild/improving symptoms Intra-arterial candidate for intervention?: No Reason not a candidate: Not performed due to mild/improving symptoms Patient admitted solely for an elective carotid intervention: No Antithrombotic started on admission: Started on admission Dysphagia screen performed before oral intake or any p.o. medication given: Performed and patient passed, oral intake initiated Screen date completed: 03/29/2019 Screen time completed: 17:45 Physical Medicine (PMR) consulted: Consulted and will evaluate the patient Speech therapy consulted to evaluate patient: Not consulted because no speech/language deficits Pharmacologic VTE prophylaxis: instituted Tobacco use: Currently uses tobacco, smoking cessation consult will be performed Fasting lipids performed: Will be performed in the morning Patient on lipid-lowering agent prior to arrival?: No Relevant cerebrovascular risk factors: Tobacco use and obesity documented in this encounter Consult Notes Oli Gonzalez P.T., D.P.T. - 03/30/2019 4:05 PM CDT Physical Therapy Acute Hospital Inpatient Evaluation/Treatment SUBJECTIVE Patient's Name: Angie Mosquera Referring/Attending Provider: Robert Diehl M.D. Reason for Referral: PT evaluate and treat History of Present Illness: bilateral cerebellar/occipital infarcts Medical Diagnosis: 1. Stroke (HCC) 2. Transient Ischemic Attack 3. Thrombosis Arterial (HCC) 4. Nicotine Dependence Cigarettes Onset Date: 03/29/19 Payor: MEDICARE / Plan: MEDICARE A AND [...] (HCC) ??? Transient Ischemic Attack ??? Aneurysm Ruptured Cerebral Nontraumatic (HCC) Past Surgical History: Procedure Laterality Date [...] full history of present illness. Patient/Caregiver Goals: Return home Patient Comments: Willing to participate with therapy activities Precautions Other Precautions: lifting restrictions from cervical and Left shoulder surgeries Prior Level of Function: Prior Function / Occupational Profile Level of [place]: Independent with ADLs and functional transfers, Independent with homemaking with ambulation Lives With: Alone Receives Help From: Family, Friend(s) ADL Assistance: Independent Homemaking Assistance: Independent Driving: Independent Occupational Role: Unemployed Home Living Type of Home: Apartment Home Layout: One level Home Access: Level entry OBJECTIVE Fall Risk (65 and older) Fall in the last 12 months: No Physical status: Cognition: Overall Cognitive Status: Intact Bed Mobility/Transfers: Bed Mobility Bed Mobility: Yes Bed Mobility - Supine to Sit Level of Assistance: Independent Transfer - Bed, Chair, Wheelchair # of Assistants: 1 Method: Stand pivot Device: none Level of Assistance: Independent ROM/Strength General ROM / Strength Screening ROM - Upper Extremity Screen: Addressed, no concerns noted ROM - Lower Extremity Screen: Addressed, no concerns noted Strength - Upper Extremity Screen: Addressed, no concerns noted Strength - Lower Extremity Screen: Addressed, no concerns noted Gait/Stair/WC: Gait Assessment Level of Assistance: Independent Device: None Distance (m): 200 m Balance: Static Sitting-Balance: Good (Maintains balance without support) Dynamic Sitting-Balance: Good (Maintains balance without support) Static Standing-Balance: Good (Maintains balance without support) Dynamic Standing-Balance: Good (Maintains balance without support) Measures - Tools AM-PAC Mobility: How much difficulty does the patient currently have??? Turning over in bed (including adjusting bedclothes, sheets and blankets)?: None Sitting down on and standing up from a chair with arms (e.g., wheelchair, bedside commode, etc.): None Moving from lying on back to sitting on the side of the bed?: None AM-PAC Mobility: How much help from another person does the patient currently need??? Moving to and from a bed to a chair: None Need to walk in hospital room?: None Climbing 3-5 steps with a railing?: None AM-PAC Mobility: Score Basic Mobility Raw Score: 24 Basic Mobility Standardized Score: 61.14 [facility] 0-100% Score: 0 % Basic Mobility [facility] Modifier: CH INTERPRETATION: Clinicians answer the AM-PAC Inpatient Short Form based on observed patient activity and/or clinicaljudgement (ie. patient can be scored without physically performing each activity) According to scoring guidelines: Those going to home had an average score of 20.1 Those going home with home care had an average score of 17.9 Those going to SNF had an average score of 14 Those going to IRF had an average score of 13.6 Those going to a LTAC had an average score of 11.5 Approximate degree of functional impairment based on raw score: 6 = 100% 12 = 67% 18 = 47% 24 = 0% 7 = 92% 13 = 63% 19 = 43% 8 = 86% 14 = 60% 20 = 38% 9 = 80% 15 = 56% 21 = 33% 10 = 75% 16 = 53% 22 = 26% 11 = 70% 17 = 50% 23 = 16% Treatment: Evaluation only Assessment Clinical Impression: Ms. Mosquera is a 53-year-old female admitted to the hospital with embolic stroke of unknown source. She resides by herself in a level entry apartment with the bed/bath on the main floor. Prior to this admission she was independent with activities of daily living and mobility without a gait aid. Her past medical history is significant for fibromyalgia and fusion of her cervical spine. She currently demonstrates independence with transfers and ambulation. She has been up ad eric in her room without difficulty. She reports expecting to be discharged home to her apartment this . Her son lives near to her home and will be able to assist her as needed upon discharge from the hospital. If she remains in the hospital on Tuesday PT will check in on her to make sure her functional status hasn't changed. Rehab Potential: Ms. Mosquera has Excellent potential to achieve established physical therapy goals within the time frame outlined below. Discharge Recommendation: Intermittent supervision Functional Goals and Timeframes: PT Inpatient Goals PT Goal #1: Independent with transfers/ambulation without a gait aid PT Goal #1 Date: 04/06/19 Plan Patient agrees with the plan of care and goals. Treatment Plan: Frequency: 5x/week Duration: Plan: Plan: Plan of care initiated Other PT Comments: Expect discharge home this . If patient remains in hospital on Tuesday willcheck in with her. She has been up ad eric in her room and is functioning at her baseline leves for transfers/mobility Treatment interventions may include: Therapeutic exercise, Therapeutic functional activity, Neuromuscular re-education Clinical Presentation: Evolving Number of Examination Elements:3 Clinical Decision Making: Low: no complicating factors, 1-2 eval elements, stable clinical presentation Time Spent with Patient PT Evaluation (min): 15 min Total Treatment Time (min): 15 min Functional G-code Worksheet Basic Mobility Raw Score: 24 Basic Mobility Standardized Score: 61.14 CMS 0-100% Score: 0 % Basic Mobility CMS Modifier: CH Oli Gonzalez P.T., D.P.T. Kenna Christensen M.S., C.T.T.S. - 03/30/2019 2:26 PM CDTAssociated Order(s): IP CONSULT TO INTERNAL MEDICINE NICOTINE DEPENDENCE SUBJECTIVE Consults REASON FOR CONSULT Admitting Service: Neurology Reason for Consult: Tobacco Use Disorder HISTORY OF PRESENT ILLNESS Angie Mosquera is a 53 y.o. female who was seen at [facility] and is being evaluated for Tobacco Use Disorder. Tobacco Status: History Smoking Status ??? Current Every Day Smoker Smokeless Tobacco ??? Never Used Comment: Since teens, used to be 2 ppd, now 1/2 ppd. Roughly 40 pack year estimate Tobacco use history: Patient averages 10 cigarettes per day. She has made several quit attempts withher longest period of abstinence being 5 year(s). Angie has tried stopping using various methods such as stopping unassisted / cold turkey / willpower only, nicotine patches and Chantix / varenicline.Patient has relapsed due to life stressors and stopped taking NRT/medication . The patient has experienced the following withdrawal symptoms: craving, desire to smoke, difficulty sleeping, fatigue and irritability. Patient reports specific triggers are: driving and feeling stressed. Motivation: Angie shares that she is extremely motivated to stop using tobacco at this time. Her reasons to quit are to improve health and she mentioned when she quit in the past, she len an increase in energy, her skind and hair was healthier, she was able to be more physically active. All things she hopes to get back to. . Perceived Barriers to quitting: Too many stressors in the patient's life right now. However she feels with help from cessation medications she can better manage the withdrawal symptoms OBJECTIVE Co-occurring Problems: The patient has a history of anxiety. Patient states no contraindications to nicotine replacement. Patient states no contraindications to varenicline. ASSESSMENT / PLAN 1. Tobacco use disorder Ms. Mosquera has initiated a quit attempt and plans to remain tobacco free. The patient is currently using no medications which should be changed to the recommended dose of 14 mg patch and nicotine inhaler. Medication Plan: Discharge medications will be prescribed by a physician at [facility] In hospital medications to be provided by the primary service team The following discharge medications are recommended for the patient: Nicotine patch: 14 mg Initial doses for 4-6 weeks then [...] cough (which tends to lessen over time). Varenicline Starter Pack (Chantix): one 0.5 mg tablet daily for three days, then increase to one 0.5mg tablet twice a day for four days. After seven days, increase the dose to 1 mg twice a day for 3 months. If not smoking at the end of three months, consider continuing the 1 mg pills for an additional 3 months. Take the pills with food and a large glass of water. Tapering is not necessary when discontinuing Varenicline. .We discussed the common side effects of varenicline, such as vivid dreams, headaches, insomnia and recommended to take the medication with food. The patient does not have any known contraindications to using varenicline, such as decreased kidney function. I advised the patient that if she [...] seem to trigger urges to smoke, distraction and use NRT were discussed to help manage urges and cravings. The patient did accept the booklet entitled My Path to a Smoke-Free Future. Follow-Up: I encouraged Angie Mosquera to contact me with any questions or concerns. I provided the patient with educational materials.. Patient is ready to learn, No apparant barriers to learning were identified. Patient understands andagrees with plan. 30 minutes of our visit was spent on tobacco use disorder counseling. Kenna Ortega M.S., C.T.T.S. 03/30/2019 2:26 PM Rosario Lopez O.T. - 03/30/2019 12:01 PM CDT Occupational Therapy Acute Hospital Inpatient Evaluation/Treatment SUBJECTIVE Patient's Name: Angie Mosquera Referring/Attending Provider: Robert Diehl M.D. Medical Diagnosis: Stroke (HCC) [I63.9] Transient Ischemic Attack [G45.9] Reason for Referral: OT evaluate and treat History of Present Illness: bilateral cerebellar/occipital infarcts Onset Date: 03/29/19 Payor: MEDICARE / Plan: MEDICARE A AND [...] (HCC) ??? Transient Ischemic Attack ??? Aneurysm Ruptured Cerebral Nontraumatic (HCC) Past Surgical History: Procedure Laterality Date [...] Physical for full history. Precautions Other Precautions: fall, lifting restrictions from cervical and Left shoulder surgery Occupational Profile: Prior Function / Occupational Profile Level of [place]: Independent with ADLs and functional transfers, Independent with homemaking with ambulation Lives With: Alone Receives Help From: Family ADL Assistance: Independent Homemaking Assistance: Independent (son helps with heavy lifting) Driving: Independent Occupational Role: Unemployed Home Living Type of Home: Apartment Home Layout: One level Home Access: Level entry Bathroom Shower/Tub: Tub/shower unit Bathroom Toilet: Standard Bathroom Accessibility: Yes How Accessible: Accessible via walker Home Equipment Gait Devices : Walker rolling or standard, Cane Family/Caregiver Present: No Patient/Caregiver Goals: Return home Patient Comments: I want to do my tests so I can go home Dominant Hand: Right OBJECTIVE Current ADL/IADL function: Eating: Independent Grooming: Independent Upper Body Dressing: Independent Lower Body Dressing: Independent Toileting: Supervision or touching assistance Bathing: Setup or clean-up assistance Bed Mobility: Independent Transfers: Supervision or touching assistance Functional Mobility: Supervision or touching assistance Mobility: Transfers Transfer: Yes Transfer - Bed, Chair, Wheelchair # of Assistants: 1 Method: Stand pivot Device: none Level of Assistance: Supervision/ Set-up Comments: supervision for lines and IV Transfers - Toilet # of Assistants: 1 Method: Stand pivot Device: none Level of Assistance: Supervision/Set-up Comments: supervision for lines and IV Cognition: Overall Cognitive Status: Intact Arousal/Alertness: Appropriate responses to stimuli Attention: Addressed, no concerns noted Memory: Addressed, no concerns noted Orientation: Oriented X4 Following Commands: Follows all commands and directions without difficulty Safety / Judgment: Addressed, no concerns noted Problem Solving: Addressed, no concerns noted Functional activity: Activity Tolerance Endurance: Tolerates 10 - 20 min exercise with multiple rests Sitting Tolerance: Good Standing Tolerance: Fair Balance Static Sitting-Balance: Good (Maintains balance without support) Dynamic Sitting-Balance: Good (Maintains balance without support) Static Standing-Balance: Good (Maintains balance without support) Dynamic Standing-Balance: Fair (Maintains balance with handheld assistance) Hand Function Gross Grasp: Functional Coordination: Functional Vision Basic/Sensation: Vision-Basic Assessment Current Vision: (right superior temporal quadrantanopia resolving. Patient denies visual field deficits.) ROM/Strength: General ROM / Strength Screening ROM - Upper Extremity Screen: Addressed, no concerns noted Strength - Upper Extremity Screen: Impaired left (4/5 at left shoulder and elbow, history of left shoulder replacement, rotator cuff tear) Balance: Static Sitting-Balance: Good (Maintains balance without support) Dynamic Sitting-Balance: Good (Maintains balance without support) Static Standing-Balance: Good (Maintains balance without support) Dynamic Standing-Balance: Fair (Maintains balance with handheld assistance) Treatment today consisted of: ADL's- Pt completing functional transfers with general supervision for lines and IV tubing. Pt completing dressing and grooming with general supervision for lines and IV tubing. Therapeutic Exercise- Patient instructed in pink theraband resistive exercise program for left shoulder and left elbow. Patient with appropriate return demonstration of exercises. Pt instructed to complete exercises 10 reps each, 2-3x/day. Assessment Clinical Impression: Patient is progressing well with ADL's and mobility. Anticipate safe discharge to home with assistance from son for heavy lifting. Daytime check-ins: : Patient does not need help with mobility or ADLs but requires extra effort , extra time to complete tasks. Caregiver needs to provide reminders to ensure tasks are complete, may need to provide assistance with tasks occurring outside the home. Patient knows how to get help if/whenneeded. Caregiver help may be in person or via phone typically 1-2 times/day; primarily for cognitive support. Rehab Potential: Ms. Mosquera has Good potential to achieve established occupational therapy goals within the time frame outlined below. Barriers to Discharge: None Discharge Recommendation: (daytime check ins) Functional Goals and Timeframes: OT Goal #1: Patient will complete dressing with setup assist (MET) OT Goal #1 Date: 03/30/19 OT Goal #2: Patient will complete grooming, standing at sink with supervision for IV lines (MET) OT Goal #2 Date: 03/30/19 OT Goal #3: Patient will be independent with home exercise resistive theraband ([place]) program for left shoulder and elbow (MET) OT Goal #3 Date: 03/30/19 @[id number])@ Plan Patient agrees with the plan of care and goals. Treatment Plan: OT Frequency: One-time visit OT Duration: One time visit Plan: Discontinue therapy Treatment interventions may include: Self-care/home management, Therapeutic exercise Performance Deficits: 1 - 3 performance deficits Evaluation Complexity: Low Time Spent with Patient OT Evaluation (min): 20 min Home Management Training (min): 15 min Therapeutic Exercise (min): 10 min Time Calculation Total Timed Units (min): 25 min Total Treatment Time (min): 45 min Functional G-code Worksheet Rosario Lopez O.T. Sanchez Warren M.D., Ph.D. - 03/30/2019 10:36 AM CDTAssociated Order(s): IP CONSULT TO PHYSICAL MEDICINE & REHABILITATION SUBJECTIVE Reason for Consult Consults Reason for Consult: stroke History of Present Illness Ms. Angie Mosquera is a pleasant 53-year-old right-hand dominant woman with a complex past medical history which includes left shoulder and bilateral knee arthroplasties, gastric by-pass, recurrent sinus infections, occipital neuralgia, and cervical as well as lumbar fusions. Additional issues include fibromyalgia and nicotine dependence who nevertheless was living independently in her own apartment in [place] until yesterday morning when she noted the onset of unsteadiness and tilting towards the sides when she got up from the bathroom and went into the kitchen. She felt the room was tilting and was unable to maintain her balance without the assistance of a friend who had been staying there overnight. In fact, Ms. Mosquera tells me that her unsteadiness was unilateral butrequired her friend toshift support from one side to another to prevent her from falling. Ms. Mosquera was initially taken to the [facility] where MRI/MRA (images which I reviewed in QREADS) revealed bila teral small areas of restricted diffusion in posterior distribution involving both the cerebellar and occipital lobes. The etiology was presumed embolic and she was transferred to [facility] for further evaluation here. Upon arrival at [facility], Ms. Mosquera was described as alert, in no distress. She was noted to have a decreased sensation in V1 and V2 distributions on the left as well as left lower extremity weakness which was described as at her baseline level. She noted a 9/10 occipital headache and was still feeling somewhat dizzy. A CT/CTA revealed vertebral artery stenosis on the right presumably due to thrombus. She was begun on anticoagulation and subsequently has had a quiet course. MEDICAL HISTORY Cervical and lumbar spine surgeries. Bariatric surgery. Cholecystectomy. Hysterectomy. Carpal tunnel syndrome. Left shoulder and bilateral knee arthroplasties. Anxiety. Fibromyalgia. Chronic back pain. REVIEW OF SYSTEMS As noted above. In addition, I performed a formal systems review. HEENT: Ms. Mosquera noted diplopia at the onset of her symptomatology yesterday but states this is now resolved. Her headache which was severe yesterday (9/10) has similarly resolved. She denies any changes in her swallowing or hearing but on my questioning later in the examination admitted that her hearing acuity was decreased and she was being considered for hearing aid. Cardiovascular/Respiratory : No complaints. She denies chest pain or shortness of breath. Extremities: Left shoulder and bilateral TKAs as noted above. She has apparently had a subsequent rotator cuff injury of the left shoulder which has left her with some pain which she has declined surgery for. Spine: Chronic back pain history in the setting of a cervical and lumbar stenosis. She has current lifting restrictions. GI: No concerns. : No concerns. Neurologic: Chronic left lower extremity weakness which she attributes to sciatica. She feels her cognition is at her baseline level at the present time. She feels diplopia has resolved. She denies anynew sensory deficits. SOCIAL HISTORY Ms. Mosquera is , pursuing a divorce. She has lived alone in an apartment in [place] for,I believe, 5 years. She is unemployed, appears to have good support from a son who lives across the street and a friend. OBJECTIVE Temperature: [36.1 ??C-36.6 ??C] 36.1 ??C Heart Rate: [45-86] 47 Resp Rate: [12-28] 13 Blood Pressure: (106-139)/(52-82) 123/73 SpO2: [96 %-98 %] 96 % Height: [152.4 cm] 152.4 cm Weight: [72.6 kg] 72.6 kg BMI (Calculated): [31.3 kg/m??] 31.3 kg/m?? Physical Exam PHYSICAL EXAMINATION General: Pleasant, alert, in no distress. HEENT: Normocephalic, without trauma. Facies is symmetric. Extremities: Upper extremities symmetric with full, active, functional range of motion. Left shoulder at the extremes of flexion, particularly with resistance, is painful. Similarly resisted internal rotation of shoulders is painful as well. Lower extremities are symmetric, obese with full active functional range of motion. Skin: Multiple and extensive tattoos on body, limbs, and face. I see no signs of erythema, warmth, or skin breakdown of the exposed distal limbs. Neurologic: General: Pleasant, alert, interactive. Mental status: Ms. Mosquera is conversant with her hospital course. I performed a formal [place] mental status examination. Orientation was 8/8, information was 2/4, learning was 4/4, mathematics was 2/4, attention was 6/7, abstraction was 2/3 (last table and bookcase was concrete), recall was 0/4 but she was able to recall the name with a prompt, construction was deferred. Total score 24/34. Speech intact. Language was intact. She was able to name objects and their components, repeat and follow 3-step cross the midline commands. Muscle bulk: Upper and lower extremities 0/0 (to extent assessable). Muscle tone: Upper and lower extremities 0/0. Coordination: Eilfwo-ux-jrvp was 0/0. Satellite sign was symmetric. Cranial nerves II through XII: Extraocular movements were intact. Visual jhaveri were intact. Cfcf-sh-imjleemu decreased hearing acuity bilaterally. Smile symmetric. Tongue was midline. Appreciation of light touch in face V1-V3 was symmetric. Muscle strength: Upper extremities, shoulder flexion and abduction 0/0. Elbow flexion and extension 0/0. Wrist extension 0/0,-1, wrist flexion 0/0,-1. Grasp is 0/-1. Finger abduction is slightly decreased on the left. Lower extremities, there is a generalized, very mild decrease in left lower extremity strength relative to the right throughout. Sensation: Light touch double simultaneous stimulation 0/0. Gait/Station/Balance: Sit to stand is standby assistance. Gait is mildly wide based but stable. Narrow-based Romberg results in a 1+ lateral sway. There is no significant pronator drift. Diagnostics I reviewed the imaging studies and agree with the interpretation as recorded. I reviewed the pertinent laboratory and diagnostic data. 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 Mosquera is a pleasant somewhat unconventional 53-year-old with multiple medical problems including cervical and lumbar fusions, left shoulder and bilateral knee arthroplasties, and chronic pain whois now 1 day status post a posterior circulation stroke effecting the bilateral cerebellar andoccipital lobes. Displays mild left-sided weakness involving the hand and the lower extremities as well as left shoulder pain with activity. Ms. Mosquera will require only limited amounts of therapy: she has lapsed with a needed shoulder program and we will work with it as well as check her safety/ADLs. Kylie Rubio R.N. - 03/30/2019 9:58 AM CDT ASSESSMENT Unable to complete assessment as patient was not available when I attempted to meet with her. Hospital employee sitting at the bedside interviewing patient. ?? PLAN Case Management will attempt to see patient at a later time, when available. Jose Daniel Verma M.D. - 03/29/2019 2:00 PM CDT SUBJECTIVE REFERRAL RMB W14 CHIEF COMPLAINT / REASON FOR VISIT Acute posterior circulation stroke HISTORY OF PRESENT ILLNESS Angie Mosquera is a 53 y.o. female who presents to the [facility] for evaluation of vertigo and found to have bilateral cerebellar and occipital lobe infarcts. Cerebrovascular risk factors include nicotine use. Last known normal was when she went to bed last night at 2330. She woke up this morning with vertigo and subsequently developed a headache. The vertigo persisted and she presented to an outside ED where an MRI/MRA of the head showed multifocal posterior circulation infarcts in the cerebellum and occipital lobes as well as a left paraclinoid ICA aneurysm measuring 5x5 mm. Currently she still feels slightly vertiginous but improved. REVIEW OF SYSTEMS Angie Mosquera's history was reviewed including allergies, current medications, review of systems, family history, medical and surgical history, social history, and problem list. Pertinent information is outlined in the history of present illness. OBJECTIVE PHYSICAL EXAM Vitals: 03/29/19 1345 Pulse: 61 SpO2: 96% Neurologic: Mental status: Alert, oriented, appropriately interactive. Language: No evidence of aphasia or dysarthria. Cranial nerves: She has a right superior temporal quadrantopia. Pupils are 4 mm bilaterally and reactive to light. Extraocular movements are full, with a few beats of vertical nystagmus on upward gaze.Visual jhaveri are normal to confrontation bilaterally. Face is symmetric. Strength: Mild left shoulder abduction weakness otherwise no focal motor findings. Reflexes: Full throughout. Flexor plantar responses bilaterally. Sensation: Intact to pinprick is the proximal upper and lower limbs. Coordination: FNF and HTS without ataxia bilaterally. Gait: Mild difficulty with tandem gait NIHSS ASSESSMENT 1A. LOC: 0=alert; keenly responsive 1B. Questions: 0=answers both questions correctly 1C. Commands: 0=Performs both tasks correctly 2. Best Gaze: 0=normal 3. Visual: 1=Partial hemianopia 4. Facial Palsy: 0=Normal symmetric movement 5A. [...] 11. Extinction: 0=No abnormality TOTAL SCORE: 1 DATA CTA head and neck pending Lab results last 24 hours: No results found for this or any previous visit (from the past 24 hour(s)). 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 female who presents with acute vertigo and was found to have bilateral cerebellar and occipital lobe infarcts. Mechanism is likely embolic, suspect proximal source. She does not give a history of thunderclap headache. Will admit to the stroke service for further workup and management. RECOMMENDATIONS 1. Neuro checks per unit routine. 2. 24 hour cardiac monitoring if no Afib previously identified. 3. Will need outpatient follow up imaging for her left ICA aneurysm 4. Full dose aspirin then 81 mg daily. 5. Blood pressure goal < 220/110.. 6. Blood glucose goal 140-180 mg/dl; insulin sliding scale if diabetic. 7. Serum extended electrolytes, HbA1c, fasting lipids, EKG, CXR. 8. Nicotine dependence consultation 9. DEVON to assess for cardioembolic source. 10. PMR Brain Rehabilitation consult. 11. Speech Pathology consult if aphasic or dysarthric. 12. Bedside dysphagia evaluation; NPO and formal swallow evaluation if needed. 13. DVT prophylaxis with heparin SC (or SCDs for 24 h if s/p tPA). 14. Code status per admitting resident. STROKE CENTER MEASURES 1. NIH Stroke Scale: 1 2. The patient was not a candidate for IV TPA. 3. Modified Harris dysphagia screen will be performed on admission. 4. PMR will be consulted. 5. The patient may be a candidate for a statin pending lipid panel. 6. The patient was placed on an antithrombotic. Thank you for the interesting consult. This is an Emergency Neurology consult note. Please page [phone] with any additional questions. I personally spent over half of a total 45 minutes face to face with the patient in counseling and discussion and/or coordination of care as described above. DIAGNOSES #1 Stroke (HCC) documented in this encounter Nursing Notes Sofie Sutton R.N. - 03/31/2019 3:05 PM CDT Shift Goals: Clinical Goals for the Shift: monitor neuros, pain control Identify possible barriers to meeting goals/advancing plan of care: None End of Shift Summary: Pt discharged to home self care. Questions answered. Sofie Sutton R.N. - 03/31/2019 3:05 PM CDT Pt discharged to home self care. Pts IV removed, AVS reviewed, and escort called. Education completeand VS taken. Questions answered. Makenzie Childs R.N. - 03/31/2019 4:02 AM CDT Shift Goals: Clinical Goals for the Shift: monitor neuros, pain control Identify possible barriers to meeting goals/advancing plan of care: none End of Shift Summary: pt remained safe and free from falls throughout the shift. No neuro changes overnight, vitals stable. Pt reported 7-9/10 pain in her neck, back and shoulders- treated with oxycodone. DISCHARGE PLANNING ??? Patient discharge needs identified Progressing INFECTION - ADULT ??? Absence of infection during hospitalization Progressing KNOWLEDGE DEFICIT ??? Patient/family/caregiver demonstrates understanding of disease process, treatment plan, medications, and discharge instructions Progressing PAIN - ADULT ??? PT VERBALIZES/DEMONSTRATES ADEQUATE COMFORT LEVEL OR BASELINE Progressing SAFETY ADULT ??? Maintain a safe environment Progressing SAFETY ADULT - RISK FOR FALL AND OR FALL INJURY ??? Patient remains free from fall/fall injury Progressing SKIN/TISSUE INTEGRITY ??? Skin/Tissue integrity maintained or improved Progressing ??? Oral and Nasal mucous membranes remain intact Progressing Marlene Irwin R.N. - 03/30/2019 10:44 PM CDT DISCHARGE PLANNING ??? Patient discharge needs identified Progressing INFECTION - ADULT ??? Absence of infection during hospitalization Progressing KNOWLEDGE DEFICIT ??? Patient/family/caregiver demonstrates understanding of disease process, treatment plan, medications, and discharge instructions Progressing PAIN - ADULT ??? PT VERBALIZES/DEMONSTRATES ADEQUATE COMFORT LEVEL OR BASELINE Progressing SAFETY ADULT ??? Maintain a safe environment Progressing SAFETY ADULT - RISK FOR FALL AND OR FALL INJURY ??? Patient remains free from fall/fall injury Progressing SKIN/TISSUE INTEGRITY ??? Skin/Tissue integrity maintained or improved Progressing ??? Oral and Nasal mucous membranes remain intact Progressing Shift Goals: Monitor neuros Identify possible barriers to meeting goals/advancing plan of care: None End of Shift Summary: VS and neuros stable. Pt complains of back, neck, and head pain - oxycodone given. Pt also complains of diarrhea - Services suggested she drinkd plenty of fluids and we will continue to monitor. Pt is call light appropriate. Electronically signed by: Marlene Irwin R.N. 03/30/19 10:47 PM Makenzie Childs R.N. - 03/30/2019 3:57 AM CDT Shift Goals: Clinical Goals for the Shift: monitor neuros Identify possible barriers to meeting goals/advancing plan of care: none End of Shift Summary: pt remained safe and free from falls throughout the shift. Vitals stable and no neuro change overnight. Reports -07/07 chronic fibromyalgia pain treated with PRNs. Currently NPO, plans for DEVON 03/30. DISCHARGE PLANNING ??? Patient discharge needs identified Progressing INFECTION - ADULT ??? Absence of infection during hospitalization Progressing KNOWLEDGE DEFICIT ??? Patient/family/caregiver demonstrates understanding of disease process, treatment plan, medications, and discharge instructions Progressing PAIN - ADULT ??? PT VERBALIZES/DEMONSTRATES ADEQUATE COMFORT LEVEL OR BASELINE Progressing SAFETY ADULT ??? Maintain a safe environment Progressing SAFETY ADULT - RISK FOR FALL AND OR FALL INJURY ??? Patient remains free from fall/fall injury Progressing SKIN/TISSUE INTEGRITY ??? Skin/Tissue integrity maintained or improved Progressing ??? Oral and Nasal mucous membranes remain intact Progressing documented in this encounter ED Notes Eliseo Mejias M.D. - 03/29/2019 1:37 PM CDT SUBJECTIVE CHIEF COMPLAINT/REASON FOR VISIT Dizziness (Evaluated in [place] with CT scan. ) and Headache HISTORY OF PRESENT ILLNESS 53-year-old female who presents from outside facility to [facility] ED with a chief concern of headache and dizziness. Outside imaging shows concern for possible acute infarct of the bilateral cerebellum and occipital lobes. Patient reports that approximately 5:45 am this morning she had acute onset vertigo feeling as though she was drunk and has a for body wanted pole itself office of the way shewanted to go. She had to grab onto a countertop just not to fall. Her girlfriend came out and told her that she also was possibly slurring her speech at that time. She did report shortness of breath and chest pain associated with this episode but has not had any recurring issues with this since. She was transported from outside hospital to [facility] for further evaluation management by Neurology here. She was hemodynamically stable throughout her transit and on arrival. She was in no apparent distress on arrival. Neurological exam was reassuring though she did have decreased sensation in the V1 and V2 distribution on the left side and left leg weakness that is baseline for her. She still has a occipital headache that is bilateral and 9/10 in severity and is still somewhat dizzy. REVIEW OF SYSTEMS Constitutional: Negative for chills and fever. Eyes: Positive for visual disturbance. Respiratory: Positive for shortness of breath. Cardiovascular: Positive for chest pain and palpitations. Gastrointestinal: Negative for abdominal pain, blood in stool, constipation, diarrhea, nausea and vomiting. Skin: Negative for rash. Neurological: Positive for dizziness, speech difficulty, numbness and headaches. Negative for syncope, facial asymmetry and weakness. OBJECTIVE Initial Vitals [03/29/19 1317] Temp Pulse Heart Rate Resp BP SpO2 -- -- -- -- -- -- Pain Score 7 PHYSICAL EXAMINATION Constitutional: She appears well-developed and well-nourished. No distress. HENT: Head: Normocephalic and atraumatic. No signs of injury. Mouth/Throat: Oropharynx is clear and moist. Mucous membranes are moist. Eyes: Conjunctivae and EOM are normal. Pupils are equal, round, and reactive to light. Right eye exhibits no discharge. Left eye exhibits no discharge. Neck: Normal range of motion. No JVD present. No tracheal deviation present. Cardiovascular: Normal rate, regular rhythm, S1 normal, S2 normal and normal heart sounds. Exam reveals no gallop and no friction rub. Pulses are palpable. Pulses are no weak pulses. No murmur heard.Edema: no edema noted Pulmonary/Chest: No tachypnea. No respiratory distress. She has no wheezes. She has no rhonchi. She has no rales. Abdominal: Soft. Bowel sounds are normal. She exhibits no distension and no mass. There is no tenderness. There is no rebound and no guarding. Musculoskeletal: Normal range of motion. She exhibits no tenderness or deformity. Neurological: She is alert and oriented to person, place, and time. She is not disoriented. A cranial nerve deficit is present. Decreased sensation in V1 and V2 distribution on the left side. Able to do basic arithmetic No visual agnosia No wndo-ib-fwiwx agnosia Ocedzv-ii-yzkl normal Zcip-xq-hqob normal Skin: Skin is warm, dry, intact and normal color. No rash noted. She is not diaphoretic. Psychiatric: She has a normal mood and affect. Her behavior is normal. Judgment and thought content normal. ASSESSMENT/PLAN Final Diagnoses: as of Mar 29 1425 Stroke (HCC) Patient presenting from outside facility with concern for occipital and cerebellar infarcts that appear acute in nature. She had an episode of vertigo and possible slurred speech this morning at 5:45 a.m.. She was transferred from outside facility be further evaluated and managed by Neurology here. She will undergo CT of the head without IV contrast and CT angiogram of the head and neck. We will alsoobtain basic laboratories at this time. I will provide her with medication for her headache. She will be admitted to the Neurology Stroke Service. Outside MRI of the head showed multiple foci of restricted diffusion the bilateral cerebellum and also the lobes consistent with acute infarcts. Most consistent with posterior circulation embolic infarcts. Consider CTA head and neck for further evaluation. There is a 5 x 5 mm saccular aneurysm projects laterally from the left paraclinoid ICA. No evidence of proximal arteries occlusion Moderately limited exam due to susceptibility artifact from presumed left ear piercing and patient motion. Eliseo Mejias M.D. Resident 03/29/19 1521 Alfredo Rausch M.D., M.A. - 03/29/2019 1:30 PM CDT I have personally seen and examined this patient. I have fully participated in the care of this patient. I have reviewed all clinical information including history, physical exam, orders, and plan. I agree with the note of the resident. 53-year-old female presents to the emergency department by ambulance from [facility] for evaluation of headache and difficulty with balance. Patient states that she woke up this morning and felt like her body was drunk. She subsequently developed a headache. She was seen at the outside hospital and underwent neuro imaging, laboratory evaluation, EKG testing. [facility]. She is currently complaining of fatigue only. Neuro imaging at [place]: MRI head MRA demonstrates multiple foci of restricted diffusion the bilateral cerebellum and occipital lobes consistent with acute infarcts. Most consistent with posterior circulation embolic infarcts. There is a 5 x 5 mm saccular aneurysm that projects laterally from the left paraclinoid ICA. Moderately limited exam due to susceptibility artifacts from presumed piercings. On exam, patient appears in no acute distress. She is afebrile and hemodynamically stable. she is moving all extremities and her speech is clear and fluent. Remainder is without acute abnormality. Impression and plan: Stroke. Will consult Neurology at this time for additional recommendations. Final disposition is pending the results of the aforementioned plan. Final Diagnoses: as of Mar 30 1429 Stroke (HCC) Transient Ischemic Attack Alfredo Rausch M.D., M.A. 03/30/19 1429 documented in this encounter Miscellaneous Notes Hospital Course - Fernie Soriano M.D. - 03/30/2019 1:58 PM CDT Ms. Angie Mosquera is a 53 y.o. female with PMH including gastric bypass surgery (1999) with laparoscopic redo (2006), chronic esophageal spasm and dysmotility, recurrent sinus infections (originally scheduled for additional ENT surgery tomorrow, 03/30), bilateral occipital neuralgia, cervical spondylosis s/p fusion, chronic pain syndrome, fibromyalgia, and nicotine use who presented on 03/29/2019 with acute onset vertigo symptoms, found to have bilateral acute cerebellar/occipital infarcts on outside MRI. She reports that she woke up on 03/29/2019 at 5:45 am with balance problems and subsequent headache approximately 45 min later. She felt room was tilting and had difficulty walking. Apparently her girlfriend also felt she may have been slurring her speech at the time. She presented to [facility], where MRI/MRA head showed multiple foci of restricted diffusion in bilateral cerebellum and occipital lobes consistent with posterior circulation acute infarcts, likely embolic. 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 ?? In the ED, CT head/CTA head and neck showed a 4x9 mm mobile partially occlusive thrombus in the distal R vertebral artery. She was subsequently started on a low-intensity heparin nomogram to bridge to warfarin with goal INR 2-3, with the heparin switched to enoxaparin prior to discharge. Given her thrombus and reported family history of thrombi on her father's side, hypercoagulable labs were obtainedincluding cardiolipin and beta-2 glycoprotein, which were negative. DEVON was notable for normal left atrial size, no evidence of left atrial appendage thrombus, aortic valve strands deemed low risk for emboli, and patent foramen ovale. Given this, lower extremity US was obtained, which was negative forDVTs. Ultimately, she was discharged in stable condition on 03/31 on a statin and enoxaparin to bridgeto warfarin (goal INR 2-3). Given that the patient was discharged on a weekend, our clinical human resources benefits assistant will arrange for PCP follow-up and INR checks on Tuesday. documented in this encounter Plan of Treatment Scheduled Referrals Name Type Priority Associated Order Schedule Diagnoses Neurology - Outpatient Routine Stroke (HCC) Expected: Cerebrovascular consult Referral Thrombosis 02/2019 (clinic) Arterial ([facility]) (Approximate), Aneurysm Cerebral Expires: Unruptured (HCC) 03/31/2022 documented as of this encounter Procedures Procedure Name Priority Date/Time Associated Comments Diagnosis US LOWER EXTREMITY RAD - Semiurgent 03/31/2019 11:16 R esults for VEINS BILATERAL (Fast; most ED AM CDT this proce dure patients; some are in the inpatients) results section. PROTHROMBIN TIME Routine 03/31/2019 8:12 Results for (PT), P AM CDT this procedure are in the results section. CBC WITHOUT Routine 03/31/2019 8:12 Results for DIFFERENTIAL, B AM CDT this procedu re are in the results section. HOLTER MONITOR - Routine 03/30/2019 5:32 Results for HOSPITAL GRID OPERATOR - PM CDT this proc edure MONITORED IN HOSPITAL are in the OR ED DISCHARGE results section. (DEVON) 2D WITH COLOR Routine 03/30/2019 4:13 Resul ts for AND LIMITED DOPPLER PM CDT this pro cedure are in the results section. PROTHROMBIN TIME STAT 03/30/2019 11:42 Results for (PT), P AM CDT this procedure are in the results section. ECG Routine 03/30/2019 9:30 Results for AM CDT this procedure are in the results section. CBC WITHOUT Routine 03/30/2019 6:21 Results for DIFFERENTIAL, B AM CDT this procedu re are in the results section. BASIC METABOLIC Routine 03/30/2019 6:21 Results f or PANEL, S/P AM CDT this procedure are in the results section. THROMBOPHILIA PROF Routine 03/30/2019 6:20 Result s for AM CDT this procedure are in the results section. BETA-2 GLYCOPROTEIN 1 Routine 03/30/2019 6:20 Res ults for ABS, IGG AND IGM, S AM CDT this pro cedure are in the results section. REPTILASE TIME, P Routine 03/30/2019 6:20 Results for AM CDT this procedure are in the results section. PROTEIN S AG, TOT, P Routine 03/30/2019 6:20 Resu lts for AM CDT this procedure are in the results section. PHOSPHOLIPID Routine 03/30/2019 6:20 Results for (CARDIOLIPIN) ABS, AM CDT this proc edure IGG AND IGM, S are in the results section. APTT MIX 1:1 Routine 03/30/2019 6:20 Results for AM CDT this procedure are in the results section. HEPARIN LEVEL ANTI-XA Timed 03/30/2019 6:20 Res ults for ASSAY, P AM CDT this procedure are in the results section. COAG FACTOR II Routine 03/30/2019 6:20 Results fo r ACTIVITY ASSAY, P AM CDT this proce dure are in the results section. HEPARIN LEVEL ANTI-XA Timed 03/29/2019 11:28 Re sults for ASSAY, P PM CDT this procedure are in the results section. LIPID PANEL, S Routine 03/29/2019 6:05 Results fo r PM CDT this procedure are in the results section. THYROID-STIMULATING Routine 03/29/2019 6:05 Resul ts for HORMONE-SENSITIVE PM CDT this proce dure (S-TSH) are in the results section. HEMOGLOBIN A1C, B Routine 03/29/2019 6:05 Results for PM CDT this procedure are in the results section. ACTIVATED PARTIAL STAT 03/29/2019 4:46 Results for THROMBOPLASTIN TIME PM CDT this pro cedure (APTT), P are in the results section. CT HEAD NECK RAD - Semiurgent 03/29/2019 3:41 Results for ANGIOGRAM WITH IV (Fast; most ED PM CDT this pro cedure CONTRAST patients; some are in the inpatients) results section. CT HEAD WITHOUT IV RAD - Emergent 03/29/2019 3:34 Resu lts for CONTRAST (Fastest; for the PM CDT this proce dure most critically are in the ill patients) results section. CBC WITH STAT 03/29/2019 2:04 Results for DIFFERENTIAL, B PM CDT this procedu re are in the results section. BASIC METABOLIC STAT 03/29/2019 2:04 Results f or PANEL, S/P PM CDT this procedure are in the results section. documented in this encounter Results CT Head Neck Angiogram with IV Contrast (06/28/2019 12:41 PM CDT) Anatomical Region Laterality Modality Head and Neck, Neuroradiology RST LOS, Neuroradiology N/A Computed Tomography ARZ LOS, Neuroradiology FLA [facility] Specimen (Source) Anatomical Collection Method Collection [...] the ventral aspect (series 6 image s [id number]). The lumen remains significantly irregular and there [...] well seen. The RADHA, MCA, a nd FITNESS AND WELLNESS INSTRUCTOR branches are unremarkable in appearance. Stable postoperative [...] the ventral aspect (series 6 image s [id number]). The lumen remains significantly irregular and there [...] well seen. The RADHA, MCA, a nd FITNESS AND WELLNESS INSTRUCTOR branches are unremarkable in appearance. Stable postoperative [...] of the left ingram praclinoid ICA. Fernie Soriano M.D. IMG CT PROCEDURES US Lower Extremity Veins Bilateral (03/31/2019 11:16 AM CDT) Anatomical Region Laterality Modality Lower Extremity, Ultrasound RST LOS, Ultrasound ARZ LOS, Faehem ateral Ultrasound Ultrasound FLA LOS Specimen (Source) Anatomical Collection Method Collection Time Re ceived Time Location / / Volume Laterality 03/31/2019 11:37 AM CDT Impressions 03/31/2019 11:44 AM CDT IMPRESSION: ??Negative for acute DVT. Narrative 03/31/2019 11:44 AM CDT EXAM: US LOWER EXTREMITY VEINS BILATERAL Exam performed with color and spectral D oppler analysis. COMPARISON: None. FINDINGS: ?? The common femoral, upper d eep femoral, femoral and popliteal veins are widely patent bilaterally, without t hrombus. The posterior tibial, peroneal, soleal and gastrocnemius veins were segm entally visualized bilaterally and are normal where seen. The great saphenous v eins bilaterally are patent and negative for thrombus. Procedure Note Debo Foy M.D. - 03/31/2019Formatt ing of this note might be different from the original. EXAM: US LOWER EXTREMITY VEINS BILATERAL Exam performed with color and spectral D oppler analysis. COMPARISON: None. FINDINGS: The common femoral, upper deep femoral, femoral and popliteal veins are widely patent bilaterally, without t hrombus. The posterior tibial, peroneal, soleal and gastrocnemius veins were segm entally visualized bilaterally and are normal where seen. The great saphenous v eins bilaterally are patent and negative for thrombus. IMPRESSION: Negative for acute DVT. Beau Hall M.D. IMG US PROCEDURES Prothrombin Time (PT/INR) (03/31/2019 8:12 AM CDT) [facility] Time Signature Prothrombin 11.5 9.4 - 12.5 03/31/2019 [facility] Time, P sec 8:46 AM CDT [facility] INR 1.0 0.9 - 1.1 03/31/2019 [facility] 8:46 AM CDT LABORATORIES - [facility] Comment: ----ADDITIONAL INFORMATION---- Standard intensity warfarin therapeutic range: 2.0 to 3.0 ?? High intensity warfarin therapeutic rang e: 2.5 to 3.5 Specimen Anatomical Collection Method Collection Time Receive d Time (Source) Location / / Volume Laterality Blood (Blood, 03/31/2019 8:12 AM 03/31/20 19 8:32 Venous) CDT AM CDT Trent Ferrer M.D. LAB BLOOD ADD-ON Performing Organization Address City/[facility] Phon e Number [facility] LABORATORIES - [address], [place] [address] [facility] CBC without Differential (03/31/2019 8:12 AM CDT) [facility] Method Time Signature Hemoglobin 12.9 11.6 - 03/31/2019 [facility] 15.0 g/dL 8:37 AM CDT [facility] Hematocrit 39.6 35.5 - 03/31/2019 [facility] 44.9 % 8:37 AM CDT LABORATORIES - [facility] Erythrocytes 4.06 3.92 - 03/31/2019 [facility] 5.13 8:37 AM CDT LABORATORIES - x10(12)/L [facility] MCV 97.5 78.2 - 03/31/2019 [facility] 97.9 fL 8:37 AM CDT [facility] RBC Distrib Width 13.2 12.2 - 03/31/2019 [facility] 16.1 % 8:37 AM CDT [facility] Platelet Count 256 157 - 371 03/31/2019 [facility] x10(9)/L 8:37 AM CDT LABORATORIES - [facility] Leukocytes 5.3 3.4 - 9.6 03/31/2019 [facility] x10(9)/L 8:37 AM CDT LABORATORIES - [facility] Specimen Anatomical Collection Method Collection Time Receive d Time (Source) Location / / Volume Laterality Blood (Blood, 03/31/2019 8:12 AM 03/31/20 19 8:31 Venous) CDT AM CDT Trent Ferrer M.D. LAB BLOOD ADD-ON Performing Organization Address City/[facility] Code Phon e Number [facility] LABORATORIES - [address], [place] [address] [facility] HOLTER MONITOR - HOSPITAL GRID OPERATOR - MONITORED IN HOSPITAL OR ED DISCHARGE (03/30/2019 5:32 PM CDT) [facility] gist Method Time Signature Recording Date [id number] HOLTER SENTINEL Analysis Date 20,190,510 HOLTER SENTINEL Max Heart Rate 125 bpm HOLTER SENTINEL Max Heart Rate [id number] HOLTER Time SENTINEL Min Heart Rate 46 bpm HOLTER SENTINEL Min Heart Rate [id number] HOLTER Time SENTINEL Mean Heart 71 bpm HOLTER Rate SENTINEL Holter Pauses 0 count HOLTER SENTINEL Tachycardia 0 count HOLTER Runs SENTINEL Bradycardia 0 count HOLTER Runs SENTINEL VT Runs 0 count HOLTER SENTINEL AIVR/IVR Runs 0 count HOLTER SENTINEL VE Total Beats 14 count HOLTER SENTINEL VE Percent 0 percent HOLTER Beats SENTINEL VE Max Per 3 count HOLTER Hour SENTINEL VE Max Per [id number] HOLTER Hour Time SENTINEL AF Count 0 count HOLTER SENTINEL SVT Runs 0 count HOLTER SENTINEL SVE Total 106 count HOLTER Beats SENTINEL SVE Percent 0 percent HOLTER Beats SENTINEL SVE Max Per 18 count HOLTER Hour SENTINEL SVE Max Per [id number] HOLTER Hour Time SENTINEL Specimen (Source) Anatomical Collection Method Collection Time Re ceived Time Location / / Volume Laterality 03/30/2019 5:30 PM CDT Narrative This result has an attachment that is no t available. Trent Ferrer M.D. CV CARDIAC SERVICES PROCEDUR ES Performing Organization Address City/State/ZIP Code Phon e Number HOLTER SENTINEL HOLTER SENTINEL NA (DEVON) 2D WITH COLOR AND LIMITED DOPPLER (03/30/2019 4:13 PM CDT) P athologist Signature Ejection 65 MC CV EIMS Fraction Anatomical Region Laterality Modality Echocardiography Specimen (Source) Anatomical Collection Method Collection Time Re ceived Time Location / / Volume Laterality 03/30/2019 2:22 PM CDT Narrative 03/30/2019 4:21 PM CDT For the complete report, see the Order-L evel Documents below. Final Impressions 1. Normal left ventricular chamber size. ??Left ventricular ejection fraction 65%. 2. No left atrial appendage thrombus. 3. 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 Valves otherwise normal for age. 4. 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 5. Patent foramen ovale. ??Small right-t o-left shunt at rest which augments with Valsalva maneuver. Findings PRE-SEDATION ASSESSMENT & CONSENT ??The goals, risks and alternatives to moderate sedation and the transesophageal echo were explained to the patient, questions were answered and consent was given to proceed. ??The physician review ed the patient's history, medication list, allergies, and review of systems and also performed a pertinent examination including a heart, airway and lung assessment. ??Mallampati Assessment : As documented in the RN pre-procedure assessment. Sedation plan: Transesophageal echo - mo derate sedation. ??ASA physical status score: Class IV. The patient's identity and all needed eq uipment were confirmed and a final confirmatory pause was performed by the team immediately pr ior to start. ??LEFT VENTRICLE: ??Normal left ventricular chamber size. ??Estimated left ventricul ar ejection fraction 65 %. ??No regional wall motion abnormalities. ??RIGHT VENTRICLE: ??Norm al right ventricular size. ??Normal right ventricular systolic function. ??ATRIA: ??Normal lef t atrial size. ??Normal left atrial appendage. ??No left atrial appendage thrombus. ??Normal righ t atrial size. ??Normal right atrial appendage. ??CARDIAC VALVES: ??Trileaflet aortic valve. ??Mil dly thickened aortic valve. 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 ??Trivial aortic valve regurgitation. ??Mildly thickened mitral valve. ??Trivial mitral valve regurgitation. ??Normal pulmonary valve. ??Trivial pulmonary valve regurgitation. ??Tricusp id valve bowing. ??Trivial tricuspid valve regurgitation. OTHER ECHO FINDINGS: ??Normal ascending aorta dimension. 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 ??Normally co nnected pulmonary veins. ??Normal superior vena cava. Patent foramen ovale. ??No wplp-ns-hmrrr shunt at atrial level. ??Agitated saline injection(s) performed. ??Small utgai-nd-rfwa shunt a t atrial level at rest and with Valsalva release. Pericardial effusion. ??PROCEDURE ??Max sesophageal echocardiogram performed at the request of the primary service center supervisor. ??Adult probe inserted without difficulty. ??Procedure performed with appropriate level of sedation. ??A trained independent observer assisted with monitoring the patient's level of consciousness and physiologic status throughout the procedure, see nursing documentation. ??Physician akash tolbert for procedural medications and patient discharge when DC criteria met. ??The patient eddie rated the sedation and procedure well and was released awake, alert, and in good condition. ??S ee Sedation Narrator or other pertinent record in [facility] for additional procedure and sedation in formation. ??Transesophageal echocardiogram completed without complications. For the complete report, see the Order-L evel Documents below. See PDF For Result Procedure Note Clemente Lagos M.D. - 03/30/2019Formatt ing of this note might be different from the original. For the complete report, see the Order-L evel Documents below. Final Impressions 1. Normal left ventricular chamber size. Left ventricular ejection fraction 65%. 2. No left atrial appendage thrombus. 3. 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 Valves otherwise normal for age. 4. 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 5. Patent foramen ovale. Small right-to- left shunt at rest which augments with Valsalva maneuver. Findings PRE-SEDATION ASSESSMENT & CONSENT The go als, risks and alternatives to moderate sedation and the transesophageal echo were explained to the patient, questions were answered and consent was given to proceed. The physician reviewed the patient's history, medication list, allergies, and review of systems and also performed a pertinent examination including a heart, airway and lung assessment. Mallampati Assessment: As documented in the RN pre-procedure assessment. Sedation plan: Transesophageal echo - mo derate sedation. ASA physical status score: Class IV. The patient's identity and all needed eq uipment were confirmed and a final confirmatory pause was performed by the team immediately pr ior to start. LEFT VENTRICLE: Normal left ventricular chamber size. Estimated left ventricular ejection fraction 65 %. No regional wall motion abnormalities. RIGHT VENTRICLE: Normal r ight ventricular size. Normal right ventricular systolic function. ATRIA: Normal left at rial size. Normal left atrial appendage. No left atrial appendage thrombus. Normal right atrial size. Normal right atrial appendage. CARDIAC VALVES: Trileaflet aortic valve. Mildly thickened aortic valve. Aortic valve strands which appear to have low risk for embolization . Trivial aortic valve regurgitation. Mildly thickened mitral valve. Trivial mitral v alve regurgitation. Normal pulmonary valve. Trivial pulmonary valve regurgitation. Tricuspid valve bowing. Trivial tricuspid valve regurgitation. OTHER ECHO FINDINGS: Normal ascending a efrain dimension. 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 Normally conn ected pulmonary veins. Normal superior vena cava. Patent foramen ovale. No iuco-ux-camiy s ballesteros at atrial level. Agitated saline injection(s) performed. Small iluee-ii-dlxx shunt at atrial level at rest and with Valsalva release. Pericardial effusion. PROCEDURE Transeso phageal echocardiogram performed at the request of the primary service center supervisor. Adult pr obe inserted without difficulty. Procedure performed with appropriate level of sedation. A alaina pillai independent observer assisted with monitoring the patient's level of consciousness and physiologic status throughout the procedure, see nursing documentation. Physician signatu re for procedural medications and patient discharge when DC criteria met. The patient tolera mary the sedation and procedure well and was released awake, alert, and in good condition. See Sedation Narrator or other pertinent record in Epic for additional procedure and sedation in formation. Transesophageal echocardiogram completed without complications. For the complete report, see the Order-L evel Documents below. See PDF For Result Trent Ferrer M.D. CV ECHO PROCEDURES Prothrombin Time (PT/INR) (03/30/2019 11:42 AM CDT) [facility] Method Time Signature Prothrombin 11.3 9.4 - 12.5 03/30/2019 [facility] Time, P sec 12:05 PM CDT [facility] INR 1.0 0.9 - 1.1 03/30/2019 [facility] 12:05 PM CDT [facility] Comment: ----ADDITIONAL INFORMATION---- Standard intensity warfarin therapeutic range: 2.0 to 3.0 ?? High intensity warfarin therapeutic rang e: 2.5 to 3.5 Specimen Anatomical Collection Method Collection Time Receive d Time (Source) Location / / Volume Laterality Blood (Blood, 03/30/2019 11:42 03/30/2019 Venous) AM CDT 11:51 AM CDT Trent Ferrer M.D. LAB BLOOD ADD-ON Performing Organization Address City/State/ZIP Code Phon e Number [facility] LABORATORIES - [address] [place], [place] [address] [facility] ECG 12 Lead (03/30/2019 9:30 AM CDT) P athologist Signature Ventricular Rate 53 BPM MUSE ECG/Min WI Interval 150 ms MUSE QRSD Interval 84 ms MUSE QT Interval 452 ms MUSE QTC Interval 424 ms MUSE P Dalton 7 degrees MUSE R Dalton -11 degrees MUSE T Wave Dalton 1 degrees MUSE Specimen Anatomical Collection Method Collection Time Receive d Time (Source) Location / / Volume Laterality 03/30/2019 9:30 AM 9 9:33 CDT AM CDT Impressions MUSE - 03/30/2019 9:33 AM CDT Sinus bradycardia Nonspecific ST abnormality When compared with ECG of 24-JUL-2009 14 :09, Minimal criteria for Anteroseptal infarc t are no longer present Narrative This result has an attachment that is no t available. Procedure Note Soham Singh M.D. - 03/30/2019Fo rmatting of this note might be different from the original. IMPRESSION: Sinus bradycardia Nonspecific ST abnormality When compared with ECG of 24-JUL-2009 14 :09, Minimal criteria for Anteroseptal infarc t are no longer present Bisi Vieyra M.D. ECG ORDERABLES Performing Organization Address City/State/ZIP Code Phon e Number MUSE MUSE NA Basic Metabolic Panel (03/30/2019 6:21 AM CDT) P athologist Signature Potassium, S 4.1 3.6 - 5.2 03/30/2019 [facility] mmol/L 7:41 AM CDT LABORATORIES - [facility] Sodium, S 141 135 - 145 03/30/2019 [facility] mmol/L 7:41 AM CDT LABORATORIES - [facility] Chloride, S 106 98 - 107 03/30/2019 [facility] mmol/L 7:41 AM CDT LABORATORIES - [facility] Bicarbonate, S 24 22 - 29 03/30/2019 [facility] mmol/L 7:41 AM CDT LABORATORIES - [facility] Anion Gap 11 7 - 15 03/30/2019 [facility] 7:41 AM CDT LABORATORIES - [facility] BUN (Blood 14 6 - 21 03/30/2019 [facility] Urea mg/dL 7:41 AM CDT LABORATORIES - Nitrogen), S [facility] Creatinine, S 0.73 0.59 - 03/30/2019 [facility] 1.04 mg/dL 7:41 AM CDT LABORATORIES - [facility] eGFR-Non >90 >=60 03/30/2019 [facility] Black/ mL/min/BSA 7:41 AM CDT LABORATORIES [facility] Comment: ----ADDITIONAL INFORMATION---- Estimated GFR calculated using the 2009 CKD_EPI creatinine equation. eGFR-Black/ >90 >=60 mL/min/BSA 03/30/2019 7:41 [facility] CDT LABORATORIES [facility] Comment: ----ADDITIONAL INFORMATION---- Estimated GFR calculated using the 2009 CKD_EPI creatinine equation. Calcium, Total, S 8.9 8.6 - 10.0 mg/dL 03/30/2019 7:41 AM [facility] CDT LABORATORIES [facility] Glucose, S 100 70 - 140 mg/dL 03/30/2019 7:41 AM [facility] CDT LABORATORIES [facility] S Specimen Anatomical Collection Method Collection Time Receive d Time (Source) Location / / Volume Laterality Blood (Blood, 03/30/2019 6:21 AM 03/30/20 6:52 Venous) CDT AM CDT Trent Ferrer M.D. LAB BLOOD ADD-ON Performing Organization Address City/State/ZIP Code Phon e Number [facility] LABORATORIES - [address] [place] [address] [facility] (ABNORMAL) CBC without Differential (03/30/2019 6:21 AM CDT) [facility] Method Time Signature Hemoglobin 12.5 11.6 - 03/30/2019 [facility] 15.0 g/dL 6:54 AM CDT LABORATORIES [facility] Hematocrit 37.9 35.5 - 03/30/2019 [facility] 44.9 % 6:54 AM CDT LABORATORIES [facility] Erythrocytes 3.87 (L) 3.92 - 03/30/2019 [facility] 5.13 6:54 AM CDT LABORATORIES - x10(12)/L [facility] MCV 97.9 78.2 - 03/30/2019 [facility] 97.9 fL 6:54 AM CDT LABORATORIES [facility] RBC Distrib 13.5 12.2 - 03/30/2019 [facility] Width 16.1 % 6:54 AM CDT LABORATORIES [facility] Platelet Count 245 157 - 371 03/30/2019 [facility] x10(9)/L 6:54 AM CDT [facility] Leukocytes 4.1 3.4 - 9.6 03/30/2019 [facility] x10(9)/L 6:54 AM CDT LABORATORIES - [facility] Specimen Anatomical Collection Method Collection Time Receive d Time (Source) Location / / Volume Laterality Blood (Blood, 03/30/2019 6:21 AM 03/30/20 19 6:44 Venous) CDT AM CDT Trent Ferrer M.D. LAB BLOOD ADD-ON Performing Organization Address [facility] Phon e Number [facility] LABORATORIES - [address], [place] [address] [facility] Coagulation Factor II Activity Assay (03/30/2019 6:20 AM CDT) athologist Signature Coag Factor II 93 75 - 145 % 03/30/2019 [facility] Assay, P 11:53 AM CDT [facility] Comment: ----ADDITIONAL INFORMATION---- This test has been modified from the whitman treyacturer's instructions. Its performance characteri stics were determined by [facility] in a manner co nsistent with CLIA requirements. This test has not bee n cleared or approved by the U.S. Food and Drug Admin istration. Specimen Anatomical Collection Method Collection Time Receive d Time (Source) Location / / Volume Laterality Blood 03/30/2019 6:20 AM 9 CDT 11:12 AM CDT Trent Ferrer M.D. LAB BLOOD ADD-ON Performing Organization Address [facility] Phon e Number [facility] LABORATORIES - [address] [place] [address] [facility] Protein S Antigen, Total (03/30/2019 6:20 AM CDT) athologist Signature Protein S Ag, 91 80 - 160 % 03/30/2019 [facility] Total, P 11:04 AM CDT [facility] Comment: ----ADDITIONAL INFORMATION---- This test has been modified from the whitman Vidmakeracturer's instructions. Its performance characteri stics were determined by [facility] in a manner co nsistent with CLIA requirements. This test has not bee n cleared or approved by the U.S. Food and Drug Admin istration. Specimen Anatomical Collection Method Collection Time Receive d Time (Source) Location / / Volume Laterality Blood 03/30/2019 6:20 AM 9 7:17 CDT AM CDT Trent Ferrer M.D. LAB BLOOD NON ADD-ON Performing Organization Address [facility] Phon e Number [facility] LABORATORIES - [address] [place], [place] [address] [facility] Reptilase Time, Plasma (03/30/2019 6:20 AM CDT) P athologist Signature Reptilase 17 14 - 23 03/30/2019 [facility] Time, P sec 9:49 AM CDT [facility] Comment: ----ADDITIONAL INFORMATION---- This test has been modified from the kyle cordovar's instructions. Its performance characteri stics were determined by [facility] in a manner co nsistent with CLIA requirements. This test has not bee n cleared or approved by the U.S. Food and Drug Admin istration. Specimen Anatomical Collection Method Collection Time Receive d Time (Source) Location / / Volume Laterality Blood 03/30/2019 6:20 AM 9 7:17 CDT AM CDT Trent Ferrer M.D. LAB BLOOD ADD-ON Performing Organization Address City/[facility] Code Phon e Number [facility] LABORATORIES - [address], [place] [address] [facility] (ABNORMAL) APTT Mix 1:1 (03/30/2019 6:20 AM CDT) P athologist Signature APTT Mix 1:1 42 (H) 26 - 36 03/30/2019 [facility] sec 9:49 AM CDT [facility] Comment: ----ADDITIONAL INFORMATION---- This test has been modified from the kyle cordovar's instructions. Its performance characteri stics were determined by [facility] in a manner co nsistent with CLIA requirements. This test has not bee n cleared or approved by the U.S. Food and Drug Admin istration. Specimen Anatomical Collection Method Collection Time Receive d Time (Source) Location / / Volume Laterality Blood 03/30/2019 6:20 AM 9 7:17 CDT AM CDT Trent Ferrer M.D. LAB BLOOD ADD-ON Performing Organization Address [facility] Phon e Number [facility] - [address] [place] [address] [facility] Heparin Anti-Xa Assay (03/30/2019 6:20 AM CDT) athologist Signature Heparin 0.38 IU/mL 03/30/2019 [facility] Anti-Xa, P 7:12 AM CDT LABORATORIES - [facility] Comment: UFH therapeutic range: ?? 0.30-0.70 IU/mL [...] Location / / Volume Laterality Blood (Blood, 03/30/2019 6:20 AM 03/30/20 19 6:52 Venous) CDT AM CDT Trent Ferrer M.D. LAB BLOOD NON ADD-ON Performing Organization Address [facility] Phon e Number [facility] - [address] [place] [address] [facility] Beta-2 Glycoprotein 1 Antibodies, IgG and IgM (03/30/2019 6:20 AM CDT) athologist Signature Beta 2 GP1 Ab <9.4 <15.0 03/30/2019 [facility] IgG, S (Negative) 7:[address] U/mL [facility] Beta 2 GP1 Ab <9.4 <15.0 03/30/2019 [facility] IgM, S (Negative) 7:[address] U/mL [facility] Specimen Anatomical Collection Method Collection Time Receive d Time (Source) Location / / Volume Laterality Blood (Blood, 03/30/2019 6:20 AM 03/30/20 19 9:55 Venous) CDT AM CDT Trent Ferrer M.D. LAB BLOOD ADD-ON Performing Organization Address City/[facility]/ZIP Code Phon e Number [facility] [address] [place] [address] [facility] Phospholipid (Cardiolipin) Antibodies, IgG and IgM (03/30/2019 6:20 AM CDT) P athologist Signature Phospholipid Ab <9.4 <15.0 03/30/2019 [facility] IgM, S (Negative) 3:49 PM CDT [facility] Phospholipid Ab <9.4 <15.0 03/30/2019 [facility] IgG, S (Negative) 3:49 PM CDT [facility] Specimen Anatomical Collection Method Collection Time Receive d Time (Source) Location / / Volume Laterality Blood (Blood, 03/30/2019 6:20 AM 03/30/20 19 9:55 Venous) CDT AM CDT Trent Ferrer M.D. LAB BLOOD ADD-ON Performing Organization Address City/[facility]/ZIP Code Phon e Number [address] [place] [address] [facility] (ABNORMAL) Thrombophilia Profile (03/30/2019 6:20 AM CDT) Patholo gist Method Time Signature Prothrombin Time 10.9 10.3 - 03/30/2019 [facility] (PT), P 12.8 sec 9:35 AM CDT LABORATORIES - [facility] INR 1.0 03/30/2019 [facility] 9:35 AM CDT [facility] Activated 57 (H) 26 - 36 03/30/2019 [facility] Partial sec 9:46 AM CDT LABORATORIES - Thrombopl Time, [facility] DRVVT Screen 0.7 0.0 - 1.1 03/30/2019 [facility] Ratio ratio 9:35 AM CDT [facility] - [facility] Thrombin Time 73 (H) 15 - 23 03/30/2019 [facility] (Bovine), P sec 9:46 AM CDT [facility] - [facility] Comment: ----ADDITIONAL INFORMATION---- This test has been modified from the man ufacturer's instructions. Its performance characteri stics were determined by [facility] in a manner co nsistent with CLIA requirements. This test has not bee n cleared or approved by the U.S. Food and Drug Admin istration. Fibrinogen, P 276 200 - 430 mg/dL 03/30/2019 10:04 AM T [facility] Comment: ----ADDITIONAL INFORMATION---- This test has been modified from the whitman Vidmakeracturer's instructions. Its performance characteri stics were determined by [facility] in a manner co nsistent with CLIA requirements. This test has not bee n cleared or approved by the U.S. Food and Drug Admin istration. Fibrinogen 0.26 0.00 - 0.50 03/30/2019 12:44 PM [facility] Equivalent Units mcg/mL FEU T [facility] (FEU) [facility] D-Dimer Units (DDU) 130 0 - 250 ng/mL 03/30/2019 12:44 PM [facility] D-Dimer T [facility] Soluble Fibrin <8 0.0 - 7.9 mcg/mL 03/30/2019 1:19 PM [facility] Monomer T [facility] Comment: ----ADDITIONAL INFORMATION---- This test was developed and its performa nce characteristics determined by [facility] in a manner co nsistent with CLIA requirements. This test has not bee n cleared or approved by the U.S. Food and Drug Admin istration. Antithrombin Activity, 99 80 - 130 % 03/30/2019 10:05 AM [facility] P T [facility] Comment: ----ADDITIONAL INFORMATION---- This test has been modified from the whitman Vidmakeracturer's instructions. Its performance characteri stics were determined by [facility] in a manner co nsistent with CLIA requirements. This test has not bee n cleared or approved by the U.S. Food and Drug Admin istration. Protein C Activity, P 131 70 - 150 % 03/30/2019 9:33 A M T [facility] Comment: ----ADDITIONAL INFORMATION---- This test has been modified from the whitman Vidmakeracturer's instructions. Its performance characteri stics were determined by [facility] in a manner co nsistent with CLIA requirements. This test has not bee n cleared or approved by the U.S. Food and Drug Admin istration. Protein S Ag, Free, 59 (L) 65 - 160 % 03/30/2019 10:19 AM [facility] P CDT LABORATORIES - [facility] JILLU Chloe Comment: ----ADDITIONAL INFORMATION---- This test has been modified from the whitman ufacturer's instructions. Its performance characteri stics were determined by [facility] in a manner co nsistent with CLIA requirements. This test has not bee n cleared or approved by the U.S. Food and Drug Admin istration. APCRV Ratio 3.0 >or=2.3 03/30/2019 10:11 [facility] AM CDT [facility] - [facility] Prothrombin [id number] Negative Negative 04/02/2019 5:19 [facility] Mutation, B PM CDT LABORATORIES [facility] PTNT Reviewed By Lewis Moreno, 04/02/2019 5:19 [facility] MBBS CDT LABORATORIES [facility] PTNT Interpretation This individual DOES NOT hav e the Prothrombin [id number] mutation. Although the 04/02/2019 5:19 [facility] Prothrombin [id number] mutation is absent, the chloe vikathy may have other genetic PM CDT LABORATORIES - and environmental risk factors for thrombosis. Alanna r genetic consultation [facility] and counseling of potentially affected family members [facility]YN[facility] testing. Comment: ----ADDITIONAL INFORMATION---- This test is a direct mutation analysis using PCR amplification, signal generation and release by cleavage of se quence specific alleles ([employer], [place], [place], [place]). This test has been modified from the whitman ufacturer's instructions. Its performance characteristics were determi jayesh by [facility] in a manner consistent with CLIA requirements. This test has not been cleared or approved by the U.S. Food and Drug Administration . Reviewed by: Milad Emerson M.D. 04/03/2019 1:35 PM [facility] CDT LABORATORIES [facility] Interpretation ?Type of Study: ?? Thrombophilia Profile 04/03/2019 1:35 PM [facility] ?IMPRESSION: ??1) Decreased protein S free antigen, a cquired versus CDT LABORATORIES - congenital. ??See comments and suggest clinical correlation. [facility] ?2) Data are consistent with the presence o f heparin. ??Suggest clinical [facility]AMP[facility] correlation and repeat testing remote from anticoagulation, if clinically indicated. ?COMMENTS: ??Prolonged thrombin time (TT) and essentially normal reptilase time (RT) are consistent with the presence of heparin or dir ect thrombin inhibitor (DTI) effect, as is the result of mixing study of prolonged activated partial thromboplastin time (APTT). ?Note: Presence of heparin/DTI (dabigatran, argatroban, bivalirudin) precludes interpretation of testing for lupus anticoagulan t (LAC) utilizing the APTT assay system. ??Suggest repeat testing remote from anticoagulation, if clinically indicated. ?? The normal dilute Iván viper venom time (DRVVT) screen ratio provides no evidence of lupus anticoagulant (LAC) by this methodology . ?? Decreased free protein S antigen and normal total protein S antigen could reflect acquired conditions (e.g., liver disease, vitamin K deficiency, warfarin anticoagulation, , estrogen therapy) or a congenital deficiency state. ??Suggest clinical correlation. ?Additional studies demonstrated normal factor II. ?No evidence dysfibrinogenemia or intravascular coagula tion and fibrinolysis (ICF/DIC). ?Normal antithrombin and protein C. ?No evidence of resistance to activated protein C (APC) . ??Therefore, DNA-based testing for factor V Leiden (R506Q) mutation was n ot performed. ?DNA-based testing demonstrates that the patient does n ot have the prothrombin [id number] mutation. ?Separately performed and reported testing for beta-2 glycoprotein I and anticardiolipin antibodies (IgG and IgM isotypes) demonstrat ed normal results, providing no evidence of antiphospholipid antibodie s by these methodologies. Specimen Anatomical Collection Method Collection Time Receive d Time (Source) Location / / Volume Laterality Blood (Blood, 03/30/2019 6:20 AM 03/30/20 19 8:13 Venous) CDT AM CDT Narrative [facility] - 04/03/2019 1:37 PM CDT Specimen Information: Specimen ID: [id number] Specimen Type: Blood Specimen Collection Start Date: 9 ??6:20 AM Specimen Received Date: 03/30/2019 ??8:13 AM Specimen ID: [id number] Specimen Type: Blood Specimen Collection Start Date: ??6:20 AM Specimen Received Date: 03/30/2019 ??7:17 AM Specimen ID: [id number] Specimen Type: Blood Specimen Collection Start Date: ??6:20 AM Specimen Received Date: 03/30/2019 ??7:17 AM Specimen ID: [id number] Specimen Type: Blood Specimen Collection Start Date: ??6:20 AM Specimen Received Date: 03/30/2019 ??7:17 AM Specimen ID: [id number] Specimen Type: Blood Specimen Collection Start Date: ??6:20 AM Specimen Received Date: 03/30/2019 ??7:17 AM Specimen ID: [id number] Specimen Type: Blood Specimen Collection Start Date: ??6:20 AM Specimen Received Date: 03/30/2019 ??7:17 AM Trent Ferrer M.D. LAB BLOOD NON ADD-ON Performing Organization Address City/State/ZIP Code Phon e Number [facility] - [address] [place], [place] [address] [facility] Heparin Anti-Xa Assay (03/29/2019 11:28 PM CDT) P athologist Signature Heparin 0.31 IU/mL 03/30/2019 [facility] Anti-Xa, P 12:05 AM CDT LAB[facility]ATORIES - [facility] Comment: UFH therapeutic range: ?? 0.30-0.70 IU/mL [...] Location / / Volume Laterality Blood (Blood, 03/29/2019 11:28 03/29/2019 Venous) PM CDT 11:52 PM CDT Trent Ferrer M.D. LAB BLOOD NON ADD-ON Performing Organization Address City/[facility]/ZIP Code Phon e Number [facility] LABORATORIES - [address] [place] [address] [facility] Hemoglobin A1c (03/29/2019 6:05 PM CDT) Analysis Performed At Patho logist Time Signature Hemoglobin A1c, 5.6 4.0 - 5.6 03/29/2019 [facility] B % 6:50 PM CDT [facility] Specimen Anatomical Collection Method Collection Time Receive d Time (Source) Location / / Volume Laterality Blood (Blood, 03/29/2019 6:05 PM 03/29/20 19 6:28 Venous) CDT PM CDT Trent Ferrer M.D. LAB BLOOD ADD-ON Performing Organization Address City/[facility] Phon e Number [facility] LABORATORIES - [address] [address] [facility] (ABNORMAL) Lipid Panel (03/29/2019 6:05 PM CDT) Patholo gist Method Time Signature Cholesterol, 204 (H) mg/dL 03/29/2019 [facility] Total 7:09 PM CDT [facility] Comment: ----REFERENCE VALUE---- Desirable: < 200 Borderline high: 200 - 239 High: > or = 240 Triglycerides 104 mg/dL 03/29/2019 7:09 PM CDT [facility] Comment: ----REFERENCE VALUE---- Normal: <150 Borderline high: 150-199 High: 200-499 Very high: > or =500 Cholesterol, HDL, S 91 >=50 mg/dL 03/29/2019 7:09 PM CDT [facility] Calculated LDL 92 mg/dL 03/29/2019 7:09 PM CDT [facility] Comment: ----REFERENCE VALUE---- Desirable: <100 Above Desirable: 100-129 Borderline high: 130-159 High: 160-189 Very high: > or =190 Cholesterol, Non-HDL, 113 mg/dL 03/29/2019 7:0 9 PM CDT [facility] Comment: ----REFERENCE VALUE---- Desirable: <130 Above Desirable: 130-159 Borderline high: 160-189 High: 190-219 Very high: > or =220 Specimen Anatomical Collection Method Collection Time Receive d Time (Source) Location / / Volume Laterality Blood (Blood, 03/29/2019 6:05 PM 03/29/20 19 6:28 Venous) CDT PM CDT Trent Ferrer M.D. LAB BLOOD ADD-ON Performing Organization Address City/State/ZIP Code Phon e Number [facility] LABORATORIES - [address] [address] [facility] S-TSH (Thyroid-Stimulating Hormone - Sensitive) (03/29/2019 6:05 PM CDT) athologist Signature TSH, Sensitive 1.6 0.3 - 4.2 03/29/2019 [facility] mIU/L 7:09 PM CDT [facility] Specimen Anatomical Collection Method Collection Time Receive d Time (Source) Location / / Volume Laterality Blood (Blood, 03/29/2019 6:05 PM 03/29/20 19 6:28 Venous) CDT PM CDT Trent Ferrer M.D. LAB BLOOD ADD-ON Performing Organization Address City/[facility]/ZIP Code Phon e Number [facility] LABORATORIES - [address] APTT (Activated Partial Thromboplastin Time) (03/29/2019 4:46 PM CDT) athologist Signature Activated 29 25 - 37 03/29/2019 [facility] Partial sec 5:01 PM CDT LABORATORIES - [facility] Specimen Anatomical Collection Method Collection Time Receive d Time (Source) Location / / Volume Laterality Blood (Blood, 03/29/2019 4:46 PM 03/29/20 19 4:52 Venous) CDT PM CDT Trent Ferrer M.D. LAB BLOOD ADD-ON Performing Organization Address City/[facility]/ZIP Code Phon e Number [facility] LABORATORIES - [address] [address] [facility] CT Head Neck Angiogram with IV Contrast (03/29/2019 3:41 PM CDT) Anatomical Region Laterality Modality Head and Neck, Neuroradiology RST LOS, Neuroradiology N/A Computed Tomography ARZ [facility], Neuroradiology FLA [facility] Specimen (Source) Anatomical Collection Method Collection Time Re ceived Time Location / / Volume Laterality 03/29/2019 4:19 PM CDT Impressions 03/29/2019 4:34 PM CDT IMPRESSION: 8mm length focal filling defect in distal right vertebral artery at C1 level concerning for thrombus. Findin gs discussed at 2:03 p.m with pager [phone] Narrative 03/29/2019 4:34 PM CDT EXAM: CT HEAD WITHOUT IV CONTRAST, CT HEAD NECK ANGIOGRAM WITH IV CONTRAST FINDINGS: 8 mm in length focal filling d efect within the distal right vertebral artery at the C1 level (series 8/image 2 43) concerning for focal thrombus. Normal appearance of the vertebral dista l to this level. Asymmetric decreased caliber of the distal most aspect of the left vertebral artery likely representing anatomic variant of hypopla dean. 4 mm aneurysm of the cavernous left ICA (series 8/image 293). No major vesse l occlusion. Noncontrast head CT demonstrates no hemorrhage or mass effec t or hydrocephalus. Procedure Note Soham Mitchell M.D., M.B.A. - 03/29/2019 EXAM: CT HEAD WITHOUT IV CONTRAST, CT HE AD NECK ANGIOGRAM WITH IV CONTRAST FINDINGS: 8 mm in length focal filling d efect within the distal right vertebral artery at the C1 level (series 8/image 2 43) concerning for focal thrombus. Normal appearance of the vertebral dista l to this level. Asymmetric decreased caliber of the distal most aspect of the left vertebral artery likely representing anatomic variant of hypopla dean. 4 mm aneurysm of the cavernous left ICA (series 8/image 293). No major vesse l occlusion. Noncontrast head CT demonstrates no hemorrhage or mass effec t or hydrocephalus. IMPRESSION: 8mm length focal filling def ect in distal right vertebral artery at C1 level concerning for thrombus. Findin gs discussed at 2:03 p.m with pager [phone] Eliseo Mejias M.D. IMGeronimo CT PROCEDURES CT Head without IV Contrast (03/29/2019 3:34 PM CDT) Anatomical Region Laterality Modality Head, Neuroradiology RST LOS, Neuroradiology ARZ LOS, N/A Computed Tomography Neuroradiology FLA LOS Specimen (Source) Anatomical Collection Method Collection Time Re ceived Time Location / / Volume Laterality 03/29/2019 4:19 PM CDT Impressions 03/29/2019 4:34 PM CDT IMPRESSION: 8mm length focal filling defect in distal right vertebral artery at C1 level concerning for thrombus. Findin gs discussed at 2:03 p.m with pager [phone] Narrative 03/29/2019 4:34 PM CDT EXAM: CT HEAD WITHOUT IV CONTRAST, CT HEAD NECK ANGIOGRAM WITH IV CONTRAST FINDINGS: 8 mm in length focal filling d efect within the distal right vertebral artery at the C1 level (series 8/image 2 43) concerning for focal thrombus. Normal appearance of the vertebral dista l to this level. Asymmetric decreased caliber of the distal most aspect of the left vertebral artery likely representing anatomic variant of hypopla dean. 4 mm aneurysm of the cavernous left ICA (series 8/image 293). No major vesse l occlusion. Noncontrast head CT demonstrates no hemorrhage or mass effec t or hydrocephalus. Procedure Note Soham Mitchell M.D., M.B.A. - 03/29/2019 EXAM: CT HEAD WITHOUT IV CONTRAST, CT HE AD NECK ANGIOGRAM WITH IV CONTRAST FINDINGS: 8 mm in length focal filling d efect within the distal right vertebral artery at the C1 level (series 8/image 2 43) concerning for focal thrombus. Normal appearance of the vertebral dista l to this level. Asymmetric decreased caliber of the distal most aspect of the left vertebral artery likely representing anatomic variant of hypopla dean. 4 mm aneurysm of the cavernous left ICA (series 8/image 293). No major vesse l occlusion. Noncontrast head CT demonstrates no hemorrhage or mass effec t or hydrocephalus. IMPRESSION: 8mm length focal filling def ect in distal right vertebral artery at C1 level concerning for thrombus. Findin gs discussed at 2:03 p.m with pager [phone] Eliseo Mejias M.D. IMGeronimo CT PROCEDURES (ABNORMAL) CBC with Differential, Blood (03/29/2019 2:04 PM CDT) [facility] Method Time Signature Hemoglobin 12.4 11.6 - 03/29/2019 [facility] 15.0 g/dL 2:11 PM CDT LABORATORIES - [facility] Hematocrit 37.0 35.5 - 03/29/2019 [facility] 44.9 % 2:11 PM CDT LABORATORIES - [facility] Erythrocytes 3.79 (L) 3.92 - 03/29/2019 [facility] 5.13 2:11 PM CDT LABORATORIES - x10(12)/L [facility] MCV 97.6 78.2 - 03/29/2019 [facility] 97.9 fL 2:11 PM CDT LABORATORIES - [facility] RBC Distrib 13.3 12.2 - 03/29/2019 [facility] Width 16.1 % 2:11 PM CDT LABORATORIES - [facility] Platelet Count 238 157 - 371 03/29/2019 [facility] x10(9)/L 2:11 PM CDT LABORATORIES - [facility] Leukocytes 4.7 3.4 - 9.6 03/29/2019 [facility] x10(9)/L 2:11 PM CDT LABORATORIES - [facility] Neutrophils 2.33 1.56 - 03/29/2019 [facility] 6.45 2:11 PM CDT LABORATORIES - x10(9)/L [facility] Lymphocytes 1.74 0.95 - 03/29/2019 [facility] 3.07 2:11 PM CDT LABORATORIES - x10(9)/L [facility] Monocytes 0.32 0.26 - 03/29/2019 [facility] 0.81 2:11 PM CDT LABORATORIES - x10(9)/L [facility] Eosinophils 0.22 0.03 - 03/29/2019 [facility] 0.48 2:11 PM CDT LABORATORIES - x10(9)/L [facility] Basophils 0.04 0.01 - 03/29/2019 [facility] 0.08 2:11 PM CDT LABORATORIES - x10(9)/L [facility] Specimen Anatomical Collection Method Collection Time Receive d Time (Source) Location / / Volume Laterality Blood (Blood, 03/29/2019 2:04 PM 03/29/20 19 2:08 Venous) CDT PM CDT Eliseo Mejias M.D. LAB BLOOD ADD-ON Performing Organization Address City/State/ZIP Code Phon e Number [facility] LABORATORIES - [address] [place], [place] [address] [facility] Basic Metabolic Panel (03/29/2019 2:04 PM CDT) athologist Signature Potassium, P 4.0 3.6 - 5.2 03/29/2019 [facility] mmol/L 2:24 PM CDT LABORATORIES - [facility] Sodium, P 142 135 - 145 03/29/2019 [facility] mmol/L 2:24 PM CDT LABORATORIES - [facility] Chloride, P 107 98 - 107 03/29/2019 [facility] mmol/L 2:24 PM CDT LAB[facility]ATORIES - [facility] Bicarbonate, P 24 22 - 29 03/29/2019 [facility] mmol/L 2:24 PM CDT LABORATORIES - [facility] Anion Gap, P 11 7 - 15 03/29/2019 [facility] 2:24 PM CDT LABORATORIES [facility] BUN (Blood 17 6 - 21 03/29/2019 [facility] Urea mg/dL 2:24 PM CDT LABORATORIES - Nitrogen), P [facility] Creatinine, P 0.81 0.59 - 03/29/2019 [facility] 1.04 mg/dL 2:24 PM CDT LABORATORIES [facility] eGFR-Black/Afr >90 >=60 03/29/2019 [facility] ican [place]ambican mL/min/BSA 2:24 PM CDT LABORATORIES [facility] Comment: ----ADDITIONAL INFORMATION---- Estimated GFR calculated using the 2009 CKD_EPI creatinine equation. eGFR Non-Black/ 82 >=60 mL/min/BSA 03/29/2019 2:24 PM [facility] [place] T [facility] Comment: ----ADDITIONAL INFORMATION---- Estimated GFR calculated using the 2009 CKD_EPI creatinine equation. Calcium, Total, P 8.7 8.6 - 10.0 mg/dL 03/29/2019 2:24 PM [facility] CDT LABORATORIES [facility] Glucose, P 101 70 - 140 mg/dL 03/29/2019 2:24 PM [facility] Specimen Anatomical Collection Method Collection Time Receive d Time (Source) Location / / Volume Laterality Blood (Blood, 03/29/2019 2:04 PM 03/29/20 19 2:08 Venous) CDT PM CDT Eliseo Mejias M.D. 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 Post Patent Foramen Ovale (HCC) Stroke (HCC) Thrombosis Arterial (HCC) Aneurysm Cerebral Unruptured (HCC) documented in this encounter Admitting Diagnoses Diagnosis Transient Ischemic Attack documented in this encounter Administered Medications Inactive Administered Medications - up to 3 most recent administrations Medication Order MAR Action Action Date Dose Rate Site acetaminophen tablet 1,000 mg Given 03/31/2019 1:39 PM CDT 1,000 mg (TYLENOL) 1,000 mg, oral, Every 8 hours scheduled, First dose on Tue03/30/19 at 1600 Given 03/31/2019 5:29 AM CDT 1,000 mg Given 03/30/2019 9:08 PM CDT 1,000 mg acetaminophen tablet 650 mg (TYLENOL) Given 03/30/2019 9:17 AM CDT 650 mg 650 mg, oral, Every 8 hours, First dose on Tue03/29/19 at 1800 Given 03/30/2019 2:08 AM CDT 650 mg Given 03/29/2019 6:49 PM CDT 650 mg albuterol 90 mcg/actuation inhaler 2 puf f (PROVENTIL HFA,VENTOLIN HFA) 2 puff, inhalation, Every 6 hours PRN, w heezing, shortness of breath, Starting on Tue03/30/19 at 1112 alum-mag hydroxide-simeth 200-200-20 mg/ 5 mL suspension 30 mL (MAALOX) 30 mL, oral, Every 4 hours PRN, indigest ion, heartburn, Starting on Tue03/30/19 at 1108 atorvastatin tablet 40 mg (LIPITOR) Given 03/30/2019 9:08 PM CDT 40 mg 40 mg, oral, Daily at bedtime, First dose on Tue03/30/19 at 2100 biotin capsule 5 mg (MERIBIN) Given 03/31/2019 1:39 PM CDT 5 mg 5 mg, oral, Daily, First dose (after last reorder) on Tue03/31/19 at 0900 biotin tablet 5 mg Given 03/30/2019 1:22 PM CDT 5 mg 5 mg, oral, Daily, First dose on Tue03/30/[address] tablet 10 mg (DULCOLAX) 10 mg, oral, 2 times daily PRN, constipation, Starting on Tue03/29/19 at 1735, Suppository is the preference. Swallow w hole. Do NOT crush, chew, or split tablet. bisacodyl suppository 10 mg (DULCOLAX) 10 mg, rectal, 2 times daily PRN, constipation, Starti ng on Tue03/29/19 at 1735, Suppository is the preference. cholecalciferol capsule 10,000 Units Given 03/31/2019 8:54 AM CD T 10,000 Units (VITAMIN D3) 10,000 Units, oral, Daily, First dose on Tue03/30/19 at 0900, cholecalciferol (vitamin D3) orderable was interchanged for cholecalciferol (vitamin D3) tablet/capsule Given 03/30/2019 8:59 AM CDT 10,000 Units cyanocobalamin tablet 2,000 mcg (VITAMIN Given 03/30/2019 8: 59 AM CDT 2,000 mcg B12) 2,000 mcg, oral, Daily, First dose on Tue03/30/19 at 0900 cyanocobalamin tablet 5,000 mcg (VITAMIN Given 03/31/2019 8: 54 AM CDT 5,000 mcg B12) 5,000 mcg, oral, Daily, First dose (after last modification) on Tue03/31/19 at 0900 cycloSPORINE 0.05 % ophthalmic emulsion 1 Given 03/31/2019 8:55 AM CDT 1 drop drop (RESTASIS) 1 drop, both eyes, 2 times daily, First dose (after last modification) on Tue03/30/19 at 2100 Given 03/30/2019 9:09 PM CDT 1 drop D5W infusion 10-250 mL/hr, intravenous, As needed, Medications Inco mpatible with 0.9% NaCL, Starting on Tue03/29/19 at 1726, Infuse at the same rat e as the piggyback until tubing clears or up to a volume of 20 mL pre and post infusion for medications incompatible with 0.9% NaCL. Use 100 mL bag then disca rd. diazePAM tablet 5 mg (VALIUM) 5 mg, oral, 2 times daily PRN, anxiety, sedation, Starting on Tue03/30/19 at 1109 diphenhydrAMINE capsule 25 mg (BENADRYL) Given 03/30/2019 10:25 PM CDT 25 mg 25 mg, oral, Bedtime PRN, sleep, Starting on Tue03/29/19 at 1727 enoxaparin injection 70 mg Given 03/31/2019 9:00 AM CDT 70 mg Left Lower Abdomen (LOVENOX) 70 mg, subcutaneous, 2 times daily, First dose on Tue03/30/19 at 2100, Please do teaching as planning to discharge on enoxaparin bridge to warfarin Given 03/30/2019 9:09 PM CDT 70 mg Left Lower Abdomen fentaNYL injection (SUBLIMAZE) Given 03/30/2019 3:54 PM CDT 25 mcg Code/trauma/sedation medication, Starting on Tue03/30/19 at 1532 Given 03/30/2019 3:38 PM CDT 50 mcg Given 03/30/2019 3:34 PM CDT 50 mcg FLUoxetine capsule 60 mg (PROzac) Given 03/31/2019 8:55 AM CDT 60 mg 60 mg, oral, Daily, First dose on Tue03/30/19 at 0900, FLUoxetine orderable was interchanged for FLUoxetine tablet/capsule Given 03/30/2019 8:58 AM CDT 60 mg fluticasone furoate-vilanterol 200-25 mcg/act Given 8:55 AM CDT 1 puff inhaler 1 puff (BREO ELLIPTA DISKUS) 1 puff, inhalation, Daily (RT), First dose on Tue03/30/19 at 0800, fluticasone/vilanterol diskus 200/25 mcg was interchanged for Budesonide/Formoterol fluticasone propionate 50 mcg/actuation Given 03/31/2019 8:55 AM CDT 2 sprays nasal spray 2 spray (FLONASE) 2 spray, each nostril, Daily, First dose on Tue03/30/19 at 0900 Given 03/30/2019 8:59 AM CDT 2 sprays folic acid tablet 800 mcg Given 03/31/2019 8:54 AM CDT 800 mcg 800 mcg, oral, Daily, First dose on Tue03/30/19 at 0900 Given 03/30/2019 8:59 AM CDT 800 mcg furosemide tablet 40 mg (LASIX) Given 03/30/2019 8:58 AM CDT 40 mg 40 mg, oral, Daily, First dose on Tue03/30/19 at 0900 furosemide tablet 40 mg (LASIX) Given 03/31/2019 8:55 AM CDT 40 mg 40 mg, oral, 2 times daily, First dose (after last modification) on Tue03/30/19 at 1700 Given 03/30/2019 4:55 PM CDT 40 mg heparin (porcine) 100 New Bag 03/29/2019 5:23 PM CDT 12 Units/kg/h r 8.71 mL/hr Units/mL in D5W 250 mL infusion 0-40 Units/kg/hr ? 72.6 kg Dosing weight (0-29.04 mL/hr), intravenous, Continuous, Starting on Clementine 03/29/19 at 1630, For 1 day 5 hours, Dose will be adjusted based on lab results and titrated per heparin weight based nomogram. PLEASE DISCONTINUE AT TIME OF STARTING ENOXAPARIN. Premix ba,000 Units in 250 mL, Intensity type: Low, Start infusion at: 12 units/kg/hour, antiXa level: Less than 0.1: Continue infusion; Increase IV dose 4 units/kg/hour; Repeat antiXa: 6 hours, antiXa level: 0.1-0.19: Continue infusion; Increase IV dose 2 units/kg/hour; Repeat antiXa: 6 hours, antiXa level: 0.2-0.5: Continue infusion; No change in IV dose; Repeat antiXa: 1st level, recheck at 6 hours then 2nd check and beyond, Next a.m., antiXa level: 0.51-0.6: Continue infusion; Decrease IV dose 1 unit/kg/hour; Repeat antiXa: 6 hours after dose change, antiXa level: 0.61-0.9: Stop infusion for 1 hour; Decrease IV dose 2 units/kg/hour; Repeat antiXa: 6 hours after Heparin resumed, antiXa level: 0.91 or greater: Stop infusion for 2 hours; Decrease IV dose 4 units/kg/hour; Repeat antiXa: 6 hours after Heparin resumed iohexol 350 mg iodine/mL solution 1-200 mL Given 03/29/2019 3:28 PM CDT 100 mL (OMNIPAQUE) 1-200 mL, intravenous, Once in imaging, contrast, Starting on Tue03/29/19 at 1526, For 1 dose, Imaging Protocol Orders, Dose per Radiant Medication Guidelines ipratropium-albuterol 0.5-2.5 mg/3 mL nebulizer Given 03/30/2019 9:06 AM CDT 3 mL solution 3 mL (DUO-NEB) 3 mL, nebulization, 2 times daily, First dose on Tue03/29/19 at 2100 lamoTRIgine tablet 200 mg (LaMICtal) Given 03/31/2019 8:54 AM CDT 200 mg 200 mg, oral, 2 times daily, First dose on Tue03/29/19 at 2100 Given 03/30/2019 9:07 PM CDT 200 mg Given 03/30/2019 8:59 AM CDT 200 mg lidocaine 5 % ointment 1 application Given 03/30/2019 3:17 P M CDT 1 application (XYLOCAINE) 1 application, mouth/throat, As needed, mild pain or score 1-3 of 10, See protocol, Starting on Tue03/30/19 at 1429, MAX of 20 g of ointment/day loperamide capsule 2 mg (IMODIUM A-D) Given 03/30/2019 1:21 PM CDT 2 mg 2 mg, oral, 4 times daily PRN, diarrhea, Starting on Tue03/30/19 at 1143 loratadine tablet 10 mg (CLARITIN) Given 03/31/2019 8:55 AM CDT 10 mg 10 mg, oral, Daily, First dose on Tue03/30/19 at 0900, loratadine 10 mg oral daily was interchanged for cetirizine 10 mg oral daily Given 03/30/2019 8:59 AM CDT 10 mg metoclopramide tablet 10 mg (REGLAN) Given 03/30/2019 4:55 PM CDT 10 mg 10 mg, oral, 3 times daily PRN, nausea, Starting on Tue03/30/19 at 1041 midazolam (PF) injection (VERSED) Given 03/30/2019 3:54 PM CDT 1 mg Code/trauma/sedation medication, Starting on Tue03/30/19 at 1532 Given 03/30/2019 3:40 PM CDT 1 mg Given 03/30/2019 3:37 PM CDT 1 mg NaCl 0.9% infusion 10-250 mL/hr, intravenous, As needed, Be tween Consecutive Piggyback Medications, Starting on Clementine 03/29/19 at 1726, Infuse at the same rat e as the piggyback until tubing clears or up to a volume of 20 mL . Select for IV medication administration when no maintenance IV available or when IV medication s are not compatible with maintenance fluid. NaCl 0.9% infusion 10-250 mL/hr, intravenous, As needed, Post Medications (Hazardous/Low Fluid Volume), Starting on Clementine 03/29/19 at 1726, Infuse at the same rate as the medication until tubing cleared of medication, then discard. nicotine 10 mg inhaler 1 puff (NICOTROL) Given 03/31/2019 9:56 AM CDT 1 puff 1 puff, inhalation, As needed, smoking cessation, Starting on Tue03/30/19 at 2251, Inhale with continuous puffing over 20 minutes; Initial 6 to 16 cartridges per day; MAX 16 cartridges per day. nicotine 14 mg/24 hr 1 Medication Applied 03/31/2019 6:07 AM 1 patch Left Shoulder patch (NICODERM CQ) CDT 1 patch, transdermal, Administer over 24 Hours, Daily, First dose on Tue03/31/19 at 0600 oxyCODONE IR tablet 5 mg (ROXICODONE) Given 03/31/2019 12:36 PM CDT 5 mg 5 mg, oral, Every 6 hours PRN, moderate pain or score 4-6 of 10, severe pain or score 7-10 of 10, Starting on Clementine 03/29/19 at 1731 Given 03/31/2019 3:34 AM CDT 5 mg Given 03/30/2019 9:33 PM CDT [address] tablet 40 mg (PROTONIX) Given 03/31/2019 6:07 AM CDT 40 mg 40 mg, oral, Daily before breakfast, First dose on Tue03/30/19 at 0700, pantoprazole 40 mg oral daily was interchanged for esomeprazole 20 or 40 mg oral daily Swallow whole. Do NOT crush, chew, or split tablet. Given 03/30/2019 6:38 AM CDT 40 mg potassium chloride ER tablet 20 mEq Given 03/31/2019 8:55 AM CDT 20 mEq (KLORCON/K-TAB) 20 mEq, oral, Daily with breakfast, First dose on Tue03/30/19 at 0800, potassium chloride orderable was interchanged for potassium chloride tablet/capsule Swallow whole. Do NOT crush, chew, or split tablet. Given 03/30/2019 8:59 AM CDT 20 mEq pregabalin capsule 150 mg (LYRICA) Given 03/30/2019 8:58 AM CDT 150 mg 150 mg, oral, 2 times daily, First dose on Tue03/29/19 at 2100 Given 03/29/2019 8:21 PM CDT 150 mg pregabalin capsule 150 mg (LYRICA) Given 03/31/2019 8:55 AM CDT 150 mg 150 mg, oral, Daily, First dose (after last modification) on Tue03/31/19 at 0900 pregabalin capsule 450 mg (LYRICA) Given 03/30/2019 5:05 PM CDT 450 mg 450 mg, oral, Every evening, First dose on Tue03/30/19 at 1800 prochlorperazine injection 10 mg (COMPAZ INE) Given 03/29/2019 2:02 PM CDT 10 mg 10 mg, intravenous, Once, On Tue03/29/19 at 1353, For 1 dose promethazine tablet 25 mg (PHENERGAN) 25 mg, oral, Every 6 hours PRN, nausea, vomiting, Starting on Tue03/30/19 at 1110 sodium chloride (PF) 0.9 % injection 1-1 00 mL Given 03/29/2019 3:27 PM CDT 35 mL 1-100 mL, intravenous, Once, On Tue03/29/19 at 1527, For 1 dose, Imaging Protocol Orders sodium chloride 0.9 % injection 10 mL 10 mL, intravenous, As needed, line care , Peripheral Intravenous Catheter and Rapid Infusion Catheter, Starting on Clementine 9 at 1727, Prior to blood sampling, post blood transfusion or post blood sampling. sodium chloride 0.9 % injection 3 mL Given 03/29/2019 5:28 PM CDT 3 mL 3 mL, intravenous, As needed, line care, Peripheral Intravenous Catheter and Rapid Infusion Catheter, Starting on Tue03/29/19 at 1727, Prior to and following infusion and between multiple consecutive infusions. sodium chloride 0.9 % injection 3 mL Given 03/31/2019 9:00 AM CDT 3 mL 3 mL, intravenous, Every 12 hours scheduled, First dose on Tue03/29/19 at 2100, Peripheral Intravenous Catheter and Rapid Infusion Catheter: When no infusion to maintain patency. Given 03/30/2019 9:00 PM CDT 3 mL Given 03/29/2019 8:25 PM CDT 3 mL sodium chloride 0.9 % injection 5 mL 5 mL, intravenous, As needed, line care, for agitated saline (bubble) studies, Starting on Tue03/30/19 at 1429, See protocol tiotropium 2.5 mcg/actuation inhaler 2 p uff Given 03/31/2019 9:00 AM CDT 2 puffs 2 puff, inhalation, Daily (RT), First dose on Tue03/30/19 at 0800 tiZANidine tablet 2 mg (ZANAFLEX) Given 03/31/2019 12:36 PM CDT 2 mg 2 mg, oral, Every 8 hours PRN, muscle spasms, pain, Starting on Tue03/30/19 at 1040 Given 03/30/2019 10:25 PM CDT 2 mg Given 03/30/2019 1:22 PM CDT 2 mg warfarin management (COUMADIN) oral, Daily, First dose on Tue03/30/19 at 1130, Pharmacist to Dose: Yes, Target INR: 2 - 3, Comorbidities that constitute Warfarin Sensitiv ity: Poor nutrition state (e.g., several days or more of significa ntly reduced dietary intake), Indication: Other, Explanatory Comment: Vertebral Ar cole Thrombosis, Therapy type: New Warfarin therapy warfarin tablet 5 mg (COUMADIN) Given 03/30/2019 4:56 PM CDT 5 mg 5 mg, oral, Once, On Tue03/30/19 at 1700, For 1 dose, Warfarin dose initially recommended by pharmacogenomics or clinical calculator? Yes warfarin tablet 5 mg (COUMADIN) 5 mg, oral, Once, On Tue03/31/19 at 1700, For 1 dose zonisamide capsule 300 mg (ZONEGRAN) Given 03/31/2019 8:54 AM CDT 300 mg 300 mg, oral, 2 times daily, First dose on Tue03/29/19 at 2100, Swallow whole. Do NOT crush, chew or open capsule. Given 03/30/2019 9:07 PM CDT 300 mg Given 03/30/2019 8:59 AM CDT 300 mg documented in this encounter Active and Recently Administered Medications Times are shown in CDT. Scheduled Medication Order 03/29/2019 03/30/2019 03/31/2019 acetaminophen tablet 1,000 mg (TYLENOL) 1655 (Given - Provider: Marlene Irwin R.N.)2108 (Given - Provider: Marlene Irwin R.N.) 0529 (Given - Provider: Makenzie Childs R.N.)1339 (Given - Provider: Sofie Sutton R.N.) 1,000 mg, oral, Every 8 hours scheduled, First dose on Tue 9 at 1600 acetaminophen tablet 650 mg (TYLENOL) (CANCELED) 1849 (Given - Provider: Steven Carrillo R.N.) 0208 (Given - Provider: Christiano Mcdonough)0917 (Given - Provider: Julieth Whitt R.N.) 650 mg, oral, Every 8 hours, First dose on Clementine 03/29/19 at 1800 atorvastatin tablet 40 mg (LIPITOR) 2108 (Given - Provider: Marlene Irwin R.N.) 40 mg, oral, Daily at bedtime, First dose on Tue03/30/19 at 2100 biotin capsule 5 mg (MERIBIN) 13 39 (Given - Provider: Sofie Sutton R.N.) 5 mg, oral, Daily, First dose (after last reorder) on 03/31/19 at 0900 biotin tablet 5 mg (CANCELED) 1322 (Give n - Provider: Julieth Whitt RBetsy) 5 mg, oral, Daily, First dose on Tue03/30/19 at 0900 cholecalciferol capsule 10,000 Units (VITAMIN D3) 0859 (Given - Provider: Julieth Whitt R.N.) 0854 (Given - Provider: Christiano Gan) 10,000 Units, oral, Daily, First dose on Tue03/30/19 at 0900, cholecalciferol (vitamin D3) orderable was interchanged for cholecalciferol (vitamin D3) tablet/capsule cyanocobalamin tablet 2,000 mcg (VITAMIN B12) (CANCELED) 0859 (Given - Provider: Julieth Whitt, R.N.) 2,000 mcg, oral, Daily, First dose on Tue03/30/19 at 0900 cyanocobalamin tablet 5,000 mcg (VITAMIN B12) 0854 (Given - Provider: Sharifa GanN.) 5,000 mcg, oral, Daily, First dose (afte r last modification) on Tue03/31/19 at 0900 cycloSPORINE 0.05 % ophthalmic emulsion 1 drop (RESTASIS) 2108 (Given - Provider: Marlene Irwin RBrittonN.) 0855 (Given - Provider: Christiano Gan.) 1 drop, both eyes, 2 times daily, First dose (after last modification) on Tue03/30/19 at 2100 enoxaparin injection 70 mg (LOVENOX) 210 (Given - Provider: Marlene Irwin R.N.) 0900 (Given - Provider: Christiano Gan) 70 mg, subcutaneous, 2 times daily, Firs t dose on Tue03/30/19 at 2100, Please do teaching as planning to discharge on enoxaparin bridge to warfarin FLUoxetine capsule 60 mg (PROzac) 0858 ( Given - Provider: Julieth Velasquez, R.N.) 0855 (Given - Provider: Christiano GanN.) 60 mg, oral, Daily, First dose on 02/13 at 0900, FLUoxetine orderable was interchanged for FLUoxetine tablet/capsule fluticasone furoate-vilanterol 200-25 mc g/act inhaler 1 puff (BREO ELLIPTA DISKUS) 0858 (Not Given - Provider: Julieth Whitt, R.N. - Reason: Patient/family refused) 0855 (Given - Provider: Christiano Gan.) 1 puff, inhalation, Daily (RT), First do se on Tue03/30/19 at 0800, fluticasone/vilanterol diskus 200/25 mcg was interchanged for Budesonide/Formoterol fluticasone propionate 50 mcg/actuation nasal spray 2 spray (FLONASE) 0859 (Given - Provider: Julieth Whitt RBrittonNBritton) 0855 (Given - Provider: Sofie Sutton R.N.) 2 spray, each nostril, Daily, First dose on Tue03/30/19 at 0900 folic acid tablet 800 mcg 0859 (Given - Provider : Sharifa MoyerN.) 0854 (Given - Provider: Sofie Sutton R.N.) 800 mcg, oral, Daily, First dose on Tue03/30/19 at 0900 furosemide tablet 40 mg (LASIX) (CANCELED) 58 (Given - Provider: Sharifa MoyerN.) 40 mg, oral, Daily, First dose on Tue03/30/19 at 0900 furosemide tablet 40 mg (LASIX) 1655 (Given - Pr ovider: Marlene Irwin RBrittonN.) 0855 (Given - Provider: Sofie Sutton R.N.) 40 mg, oral, 2 times daily, First dose ( after last modification) on Tue03/30/19 at 1700 ipratropium-albuterol 0.5-2.5 mg/3 mL ne bulizer solution 3 mL (DUO-NEB) (CANCELED) 2019 (Not Given - Provider: Makenzie collado R.N. - Reason: Patient/family refused) 09 (Given - Provider: Sharifa MoyerNBritton) 3 mL, nebulization, 2 times daily, First dose on Tue03/29/19 at 2 100 lamoTRIgine tablet 200 mg (LaMICtal) 2020 (Given - Pro vider: Makenzie Childs R.N.) 0859 (Given - Provider: Julieth Velasquez RBrittonNBritton)2106 (Given - Provider: Marlene Irwin R.N.) 0854 (Given - Provider: Christiano Gan) 200 mg, oral, 2 times daily, First dose on Tue03/29/19 at 2100 loratadine tablet 10 mg (CLARITIN) 0859 (Given - Provider: Sharifa TalamantesN.) 0855 (Given - Provider: Sofie M Sutton, R .N.) 10 mg, oral, Daily, First dose on 02/13 at 0900, loratadine 10 mg oral daily was interchanged for cetirizine 10 mg oral daily magnesium oxide tablet 400 mg (MAG-OX) 0 612 (Not Given - Provider: Makenzie Childs R.N. - Reason: Patient/family refused) 0609 (Not Given - Provider: Makenzie Childs R.N. - Reason: Patient/family refused) 400 mg, oral, Daily before breakfast, Fi rst dose on Tue03/30/19 at 0700, magnesium oxide 400 mg daily was interchanged for magnesium gluconate 500 mg daily nicotine 14 mg/24 hr 1 patch (NICODERM CQ) 0607 (Medication Applied - Provider: Makenzie Childs R.N.)1505 (Due: Medication Removed - Provider: Discharge Provider, Automatic - Comment: Time automatically adjusted from order being discontinued) 1 patch, transdermal, Administer over 24 Hours, Daily, First dose on Tue03/31/[address] tablet 40 mg (PROTONIX) 0638 (Given - Provider: Makenzie Childs R.N.) 0607 (Given - Provider: Christiano Mcdonough) 40 mg, oral, Daily before breakfast, Fir st dose on Tue03/30/19 at 0700, pantoprazole 40 mg oral daily was interchanged for esomeprazole 20 or 40 mg oral daily Swallow whole. Do NOT crush, chew, or split tablet. polyethylene glycol powder packet 17 g (MIRALAX) 0906 (Not Given - Provider: Julieth Whitt R.N. - Reason: Patient/family refused - Comment: per pt only takes as needed) 0900 (Not Given - Provider: Sofie valentine RBrittonNBritton - Reason: Patient/family refused) 17 g, oral, Daily, First dose on 03/30 at 0900, 17 g = 1 heaping Tablespoon. Dissolve in 240 mLs (8 ounces) of water prior to giving. Avoid mixing with starch-based thickened liquids. potassium chloride ER tablet 20 mEq (KLORCON/K-TAB) 0859 (Given - Provider: Julieth Whitt R.N.) 0855 (Given - Provider: Christiano Gan.) 20 mEq, oral, Daily with breakfast, Firs t dose on Tue03/30/19 at 0800, potassium chloride orderable was interchanged for potassium chloride tablet/capsule Swallow whole. Do NOT crush, chew, or split tablet. pregabalin capsule 150 mg (LYRICA) (CANCELED) 2020 (Gi saeid - Provider: Makenzie Childs R.N.) 0858 (Given - Provider: Julieth Whitt RBetsy) 150 mg, oral, 2 times daily, First dose on Tue03/29/19 at 2100 pregabalin capsule 150 mg (LYRICA) 0855 (Given - Provider: Sofie Sutton R.N.) 150 mg, oral, Daily, First dose (after last modificati on) on Tue03/31/19 at 0900 pregabalin capsule 450 mg (LYRICA) 1705 (Given - Provider: Marlene Irwin R.N.) 450 mg, oral, Every evening, First dose on Tue03/30/19 at 1800 prochlorperazine injection 10 mg (COMPAZINE) (COMPLETE D) 1402 (Given - Provider: Isaura Nielsen R.N.) 10 mg, intravenous, Once, On Tue03/29/19 at 1353, For 1 dose sodium chloride (PF) 0.9 % injection 1-100 mL (COMPLET ED) 1527 (Given - Provider: Princess Atkins RBrittonNBritton) 1-100 mL, intravenous, Once, On Tue at 1527, For 1 dose, Imaging Protocol Orders sodium chloride 0.9 % injection 3 mL 2024 (Given - Pro vider: Makenzie Childs R.N.) 0914 (Not Given - Provider: Julieth Thompson R.N. - Reason: Other - Comment: continuous infusion is running)2100 (Given - Provider: Marlene Irwin R.N.) 0900 (Given - Provider: Christiano Gan) 3 mL, intravenous, Every 12 hours schedu led, First dose on Tue03/29/19 at 2100, Peripheral Intravenous Catheter and Rapid Infusion Catheter: When no infusion to maintain patency. tiotropium 2.5 mcg/actuation inhaler 2 puff 0857 (Not Given - Provider: Julieth Whitt R.N. - Reason: Patient/family refused) 0900 (Given - Provider: Sofie Sutton R.N.) 2 puff, inhalation, Daily (RT), First dose on Tue03/30/19 at 0800 warfarin management (COUMADIN) 1130 (Due) oral, Daily, First dose on Tue03/30/19 at 1130, Pharmacist to Dose: Yes, Target INR: 2 - 3, Comorbidities that constitute Warfarin Sensitivity: Poor nutrition state (e.g., several days or more of signifi cantly reduced dietary intake), Indicati on: Other, Explanatory Comment: Vertebral Artery Thrombosis, Therapy type: New Warfarin therapy warfarin tablet 5 mg (COUMADIN) (COMPLETED) 1655 (Given - Provider: Marlene Irwin R.N.) 5 mg, oral, Once, On Tue03/30/19 at 1700, For 1 dose, Warfarin dose initially recommended by pharmacogenomics or clinical calculator? Yes warfarin tablet 5 mg (COUMADIN) 5 mg, oral, Once, On Tue03/31/19 at 1700, For 1 dose zonisamide capsule 300 mg (ZONEGRAN) 2022 (Given - Pro vider: Makenzie Childs R.N.) 0859 (Given - Provider: Julieth Velasquez R.N.)2107 (Given - Provider: Marlene Irwin R.N.) 0854 (Given - Provider: Christiano Gan) 300 mg, oral, 2 times daily, First dose on Tue03/29/19 at 2100, Swallow whole. Do NOT crush, chew or open capsule. Continuous Medication Order 03/29/2019 03/30/2019 03/31/2019 heparin (porcine) 100 Units/mL in D5W 250 mL infusion () 1723 (New Bag - Provider: Steven Carrillo R.N.)1807 (Canceled Entry - Provider: Steven Carrillo R.N. - Comment: Due time populated when medication was pulled from the PIXIS. RN used the order due time instead.) 5997 (Handoff - Provider: Christiano MoyerBrittonNBritton)1138 (Stopped - Provider: Marlene Irwin R.N.) 0-40 Units/kg/hr ? 72.6 kg Dosing weight (0-29.04 mL/hr), intravenous, Continuous, Starting on Clementine 03/29/19 at 1630, For 1 day 5 hours, Dose will be adjusted based on lab results and titrated per heparin 1907 (Handoff - Provider: Leticia Carson, R.N.) weight based nomogram. PLEASE DISCONTIN UE AT TIME OF STARTING ENOXAPARIN. Premix ba,000 Units in 250 mL, Intensity type: Low, Start infusion at: 12 units/kg/hour, antiXa level: Less than 0.1: Cont inue infusion; Increase IV dose 4 units/ kg/hour; Repeat antiXa: 6 hours, antiXa level: 0.1-0.19: Continue infusion; Increase IV dose 2 units/kg/hour; Repeat antiXa: 6 hours, antiXa level: 0.2-0.5: Mile nue infusion; No change in IV dose; Repe at antiXa: 1st level, recheck at 6 hours then 2nd check and beyond, Next a.m., antiXa level: 0.51-0.6: Continue infusion; Decrease IV dose 1 unit/kg/hour; Repeat antiXa: 6 hours after dose change, antiX a level: 0.61-0.9: Stop infusion for 1 hour; Decrease IV dose 2 units/kg/hour; Repeat antiXa: 6 hours after Heparin resumed, antiXa level: 0.91 or greater: Stop i nfusion for 2 hours; Decrease IV dose 4 units/kg/hour; Repeat antiXa: 6 hours after Heparin resumed PRN Medication Order 03/29/2019 03/30/2019 03/31/2019 albuterol 90 mcg/actuation inhaler 2 puff (PROVENTIL HFA,VENTOLI N HFA) 2 puff, inhalation, Every 6 hours PRN, w heezing, shortness of breath, Starting on 03/30/19 at 1112 albuterol nebulizer solution 2.5 mg (ACCUNEB) 2.5 mg, nebulization, Every 8 hours PRN, wheezing, shortness of breath, Starting Clementine 5/2/19 at 1723 alum-mag hydroxide-simeth 200-200-20 mg/5 mL suspension 30 mL (M AALOX) 30 mL, oral, Every 4 hours PRN, indigest ion, heartburn, Starting on Tue03/30/19 at 1108 benzonatate capsule 200 mg (TESSALON PERLES) 200 mg, oral, 3 times daily PRN, cough, Starting Tue03/30/19 at 1042, Swallow whole. Do NOT crush, chew or open capsule. bisacodyl DR tablet 10 mg (DULCOLAX)(Linked Group 1) 10 mg, oral, 2 times daily PRN, constipa tion, Starting on Tue03/29/19 at 1735, Suppository is the preference. Swallow whole. Do NOT crush, chew, or split tablet. bisacodyl suppository 10 mg (DULCOLAX)(Linked Group 1) 10 mg, rectal, 2 times daily PRN, consti pation, Starting on Tue03/29/19 at 1735, Suppository is the preference. D5W infusion 10-250 mL/hr, intravenous, As needed, Me dications Incompatible with 0.9% NaCL, Starting on Tue03/29/19 at 1726, Infuse at the same rate as the piggyback until tubing clears or up to a volume of 20 mL pre and post infusion for medications incom patible with 0.9% NaCL. Use 100 mL bag then discard. diazePAM tablet 5 mg (VALIUM) 5 mg, oral, 2 times daily PRN, anxiety, sedation, Starting on Tue03/30/19 at 1109 diphenhydrAMINE capsule 25 mg (BENADRYL) 2225 (Given - Provider: Marlene Irwin RBrittonNBritton) 25 mg, oral, Bedtime PRN, sleep, Starting on Tue03/29/19 at 1727 docusate sodium 283 mg/5 mL enema 1 enema (ENEMEEZ) 1 enema, rectal, 2 times daily PRN, cons tipation, Starting Tue03/29/19 at 1735, If no bowel movement within 24 hours of starting bisacodyl fentaNYL injection (SUBLIMAZE) (COMPLETED) 1532 (Given - Provider: Ana Rosa A Haman, R.N.)1534 (Given - Provider: Christiano Vaz.N.)1538 (Given - Provider: Ana Rosa Gordon R.N.)1554 (Given - Provider: Christiano Vaz.N.) Code/trauma/sedation medication, Starting on Tue03/30/19 at 1532 iohexol 350 mg iodine/mL solution 1-200 mL (OMNIPAQUE) (COMPLETED) 1528 (Given - Provider: Princess Atkins R.NBritton) 1-200 mL, intravenous, Once in imaging, contrast, Starting on Tue03/29/19 at 1526, For 1 dose, Imaging Protocol Orders, Dose per Radiant Medication Guidelines lidocaine 4 % cream 1 application (LMX) 1 application, topical, 4 times daily WI N, mild pain or score 1-3 of 10, Starting Tue03/29/19 at 1730 lidocaine 5 % ointment 1 application (XYLOCAINE) 1517 (Given - Provider: Christiano Vaz.N.) 1 application, mouth/throat, As needed, mild pain or score 1-3 of 10, See protocol, Starting on Tue03/30/19 at 1429, MAX of 20 g of ointment/day loperamide capsule 2 mg (IMODIUM A-D) (CANCELED) 1321 (Given - Provider: Julieth Whitt R.N.) 2 mg, oral, 4 times daily PRN, diarrhea, Starting on Tue03/30/19 at 1143 metoclopramide tablet 10 mg (REGLAN) 165 5 (Given - Provider: Marlene Irwin R.N.) 10 mg, oral, 3 times daily PRN, nausea, Starting on Tue03/30/19 a t 1041 midazolam (PF) injection (VERSED) (COMPLETED) 1532 (Given - Provider: Ana Rosa Gordon R.N.)1534 (Given - Provider: Christiano Vaz.N.)1537 (Given - Provider: Christiano Vaz.N.)1540 (Given - Provider: Christiano Vaz.N.)1554 (Given - Provider: Sharifa VazN.) Code/trauma/sedation medication, Starting on Tue03/30/19 at 1532 NaCl 0.9% infusion 10-250 mL/hr, intravenous, As needed, Be tween Consecutive Piggyback Medications, Starting on Tue03/29/19 at 1726, Infuse at the same rate as the piggyback until tubing clears or up to a volume of 20 mL. Select for IV medication administration when no maintenance IV available or when IV medications are not compatible with maintenance fluid. NaCl 0.9% infusion 10-250 mL/hr, intravenous, As needed, Po st Medications (Hazardous/Low Fluid Volume), Starting on Tue03/29/19 at 1726, Infuse at the same rate as the medication until tubing cleared of medication, then discard. naloxone injection 0.2 mg (NARCAN) 0.2 mg, intravenous, As needed, respirat ory depression, Starting Tue03/29/19 at 1742, For respiratory rate less than 8 breaths per minute or RASS score of -3, - 4, -5. Apply oxygen to keep oxygen saturations greater than 90% and notify service. nicotine 10 mg inhaler 1 puff (NICOTROL) 0956 (Given - Provider: Sofie Sutton RBrittonNBritton) 1 puff, inhalation, As needed, smoking c essation, Starting on Tue03/30/19 at 2251, Inhale with continuous puffing over 20 minutes; Initial 6 to 16 cartridges per day; MAX 16 cartridges per day. ondansetron ODT disintegrating tablet 4 mg (ZOFRAN-ODT) 4 mg, oral, Every 8 hours PRN, nausea, v omiting, Starting Tue03/29/19 at 1730, When splitting ODT at bedside, handle with gloves and a pill splitter to prevent moisture contact. oxyCODONE IR tablet 5 mg (ROXICODONE) 2345 (Given - Pr ovider: Makenzie Childs, R.N.) 0638 (Given - Provider: Makenzie Childs, R .N.)1315 (Given - Provider: Julieth Whitt R.N.)2133 (Given - Provider: Marlene Irwin RBrittonN.) 0334 (Given - Provider: Makenzie Childs, R.N.)1236 (Given - Provider: Jerica Keller, R.N.) 5 mg, oral, Every 6 hours PRN, moderate pain or score 4-6 of 10, severe pain or score 7-10 of 10, Starting on Clementine 03/29/19 at 1731 promethazine tablet 25 mg (PHENERGAN) 25 mg, oral, Every 6 hours PRN, nausea, vomiting, Starting on Tue03/30/19 at 1110 sodium chloride 0.9 % injection 10 mL 10 mL, intravenous, As needed, line care , Peripheral Intravenous Catheter and Rapid Infusion Catheter, Starting on Clementine 03/29/19 at 1727, Prior to blood sampling, post blood transfusion or post blood sampling. sodium chloride 0.9 % injection 3 mL 1728 (Given - Pro vider: Steven Carrillo R.NBritton) 3 mL, intravenous, As needed, line care, Peripheral Intravenous Catheter and Rapid Infusion Catheter, Starting on Clementine 03/29/19 at 1727, Prior to and following infusion and between multiple consecutive infusions. sodium chloride 0.9 % injection 5 mL 5 mL, intravenous, As needed, line care, for agitated saline (bubble) studies, Starting on Tue03/30/19 at 1429, See protocol tiZANidine tablet 2 mg (ZANAFLEX) 1322 ( Given - Provider: Julieth Velasquez RBrittonN.)2225 (Given - Provider: Marlene Irwin R.N.) 1236 (Given - Provider: Jerica Keller R.N.)1339 (Not Given - Provider: Sofie Sutton R.N. - Reason: Other - Comment: See previous administration) 2 mg, oral, Every 8 hours PRN, muscle sp asms, pain, Starting on Tue03/30/19 at 1040 Linked Groups Order Group 1: bisacodyl DR tablet 10 mg (DULCOLAX)Jump to med 10 mg, oral, 2 times daily PRN, constipa tion, Starting on Tue03/29/19 at 1735
Suppository is the preference. Swallow whole. Do NOT crush, chew, or split tablet.
Or bisacodyl suppository 10 mg (DULCOLAX)Jump to med 10 mg, rectal, 2 times daily PRN, consti pation, Starting on Clementine 03/29/19 at 1735
Suppository is the preference.
documented in this encounter Additional Health Concerns Assessment Noted Time PHQ-9 Depression Total Score: 13 03/30/2019 1:48 PM CD T documented as of this encounter
--- OUTSIDE RECORDS SUMMARY | 2022-07-06 14:57 | XMS_ITS | Encounter Summary ---
:1965 Author Organization [facility] Address [address] [place] [address] Care Team Providers Name Role Phone Unavailable Primary Care Provider Unavailable Encounter Details Date Type Department Care Team Description 03/29/2019 Hospital Encounter [facility] Social History Tobacco Use Types Packs/Day Years [...] you attend jain or Patient refused 2021 mormonism services? Do [...] Sig Dispensed Refills Start Date End Date benzonatate (TESSALON Take 100 mg by 6 03/19/2019 PERLES) 100 mg capsule mouth 3 (three) times a day as needed for cough. cetirizine (ZyrTEC) 10 mg Take 10 mg by mouth 0 tablet 2 (two) times a day. diazePAM (VALIUM) 10 mg Take 10 mg [...] mg by mouth 0 02/02/2021 every morning. cyanocobalamin (VITAMIN Take 2,000 mcg by 0 03/30/2019 B12) 1,000 mcg tablet mouth daily. cyanocobalamin, vitamin Place 2,500 mcg 3 019 [...] (two) times a day for 5 days. estradiol (VIVELLE-DOT) APPLY 1 PATCH TWICE 11 [...] (two) times tablet a day with meals. potassium chloride Take 20 mEq by 11 03/27/2019 (KLOR-CON SPRINKLE) 10 mEq mouth 2 (two) times ER sprinkle capsule a day. pregabalin (LYRICA) 150 mg Take 300 mg [...] 0 01/09/2019 02/02/2021 mcg/actuation inhaler every morning. SUMAtriptan (IMITREX) 25 Take 25 mg by mouth 0 03/31/2019 mg tablet every 2 (two) hours as needed for migraine. Maximum of 200 mg in a 24 hour period. varenicline (CHANTIX JULIANE) Take by mouth 2 0 11/29/2019 0.5 mg (11)- 1 mg (42) (two) times a day. tablet Day 1 through 3: Take 0.5 mg by mouth daily. Day 4 through 7: Take 0.5 mg two times a day. Day 8 through end: Take 1 mg two times a day. VIRTUSSIN AC 10-100 mg/5 TAKE 5 10ML BY 0 019 03/30/2019 mL liquid MOUTH EVERY SIX HOURS NEEDED FOR COUGH AT NIGHT warfarin (COUMADIN) 5 mg Take as directed 2 tablet 0 03/3104/05/2019 tablet per After Visit Summary. documented as of this encounter Plan of Treatment Not on filedocumented as of this encounter Visit Diagnoses Not on filedocumented in this encounter
--- OUTSIDE RECORDS SUMMARY | 2022-07-06 14:57 | XMS_ITS | Encounter Summary ---
:1965 Author Organization [facility] Address [address] [place] [address] Care Team Providers Name Role Phone Unavailable Primary Care Provider Unavailable Encounter Details Date Type Department Care Team Description 05/21/2008 Hospital Encounter HX NO MAPPING Social History Tobacco Use Types Packs/Day Years [...] you attend holiness or Patient refused 2021 episcopalian services? Do [...]
--- OUTSIDE RECORDS SUMMARY | 2022-07-06 14:57 | XMS_ITS | Encounter Summary ---
:1965 Author Organization [facility] Address [address] [place] [address] Care Team Providers Name Role Phone Unavailable Primary Care Provider Unavailable Encounter Details Date Type Department Care Team Description 07/24/2009 Hospital Encounter HX ARZ NO MAPPING Provider, [...] attend jehovah's witness or Patient refused 2021 faith services? Do [...] or slept in a fpc (including now)? Sex Assigned at Date Recorded Female 03/01/2019 10:12 AM CDT documented as of this encounter Medications at Time of Discharge Medication Sig Dispensed Refills Start Date End Date NON FORMULARY Take by mouth every 6 (six) 0 07/2403/29/2019 hours. documented as of this encounter Plan of Treatment Not on filedocumented as of this encounter Procedures Procedure Name Priority Date/Time Associated Diagnosis Comme nts DX CHEST AP OR PA Routine 07/24/2009 2:46 PM Resu lts for this AND LATERAL 2 VIEWS MST procedur e are in the results section. documented in this encounter Results DX Chest AP or PA and Lateral 2 Views (07/24/2009 2:46 PM MST) Anatomical Region Laterality Modality Chest, Thoracic RST LOS N/A Radiographic Xi ging Specimen (Source) Anatomical Collection Method Collection Time Re ceived Time Location / / Volume Laterality 07/24/2009 2:46 PM MST Narrative 07/24/2009 2:55 PM MST Indications: ?CP PATHWAY CALL [id number] IF POS ORIGINAL REPORT - 24-Jul-2009 14:55:00 ED Chest PA & Lateral: Dorsal column stimulator in place. The c hest is otherwise negative. ?? This report has been electronically sign ed by Elmo Cabrera MD on Jul 24 2009 ??2:54PM. Electronically signed by: ?? Mamta Cabrera M.D. 24-Jul-2009 14:55 Procedure Note Elmo Cabrera M.D. - 07/25/2018Formatt ing of this note might be different from the original. Indications: CP PATHWAY CALL [id number] IF PO S ORIGINAL REPORT - 24-Jul-2009 14:55:00 ED Chest PA & Lateral: Dorsal column stimulator in place. The c hest is otherwise negative. This report has been electronically sign ed by Elmo Cabrera MD on Jul 24 2009 2:54PM. Electronically signed by: Mamta Cabrera M.D. 24-Jul-2009 14:55 [facility] documented in this encounter Visit Diagnoses Not on filedocumented in this encounter
--- OUTSIDE RECORDS SUMMARY | 2022-07-06 14:57 | XMS_ITS | Encounter Summary ---
:1965 Author Organization [facility] Address [address] [place] [address] Care Team Providers Name Role Phone Unavailable Primary Care Provider Unavailable Encounter Details Date Type Department Care Team Description 09/25/2008 Hospital Encounter HX ARZ NO MAPPING Provider, [...] you attend muslim or Patient refused 2021 orthodox services? Do [...] or slept in a retirement (including now)? Sex Assigned at Date Recorded Female 03/01/2019 10:12 AM CDT documented as of this encounter Plan of Treatment Not on filedocumented as of this encounter Visit Diagnoses Not on filedocumented in this encounter
--- OUTSIDE RECORDS SUMMARY | 2022-07-06 14:57 | XMS_ITS | Encounter Summary ---
:1965 Author Organization [facility] Address [address] [place] [address] Care Team Providers Name Role Phone Unavailable Primary Care Provider Unavailable Reason for Visit Reason Onset Date Comments Prior Medical Records/Sinus CT 03/02/2019 Encounter Details Date Type Department Care Team Description 03/02/2019 Clinical Department of Honorio, Prior Medical Communication Otorhinolaryngology in [place] rds/Sinus CT [place], [place] [address] [facility] [address] [place] [phone] [place] [address] Social History Tobacco Use Types Packs/Day Years [...] you attend buddhism or Patient refused 2021 episcopal services? Do [...] a [place] [facility] (including now)? Sex Assigned at Date Recorded Female 03/01/2019 10:12 AM CDT documented as of this encounter Miscellaneous Notes Telephone Encounter - Coby Sol - 03/02/2019 8:13 AM CDT Per [place]kay (Dr. Olmedo), [facility] (Dr. Mckeon) ([phone]) was contacted. The previousmedical records have been received and sent for scanning into pt's chart. [facility] will be pushed. Coby documented in this encounter Plan of Treatment Not on filedocumented as of this encounter Visit Diagnoses Not on filedocumented in this encounter
--- OUTSIDE RECORDS SUMMARY | 2022-07-06 14:57 | XMS_ITS | Encounter Summary ---
:1965 Author Organization [facility] Address [address] [place] [address] Care Team Providers Name Role Phone Unavailable Primary Care Provider Unavailable Encounter Details Date Type Department Care Team Description 08/18/2008 - Hospital Encounter HX ARZ NO MAPPING Provider, Jadyn hough 08/19/2008 Social History Tobacco Use Types Packs/Day Years [...] you attend buddhism or Patient refused 2021 sabianist services? Do you belong to any clubs [...] nts DX CHEST AP OR PA Routine 08/18/2008 9:44 PM Resu lts for this AND LATERAL 2 VIEWS MST procedur e are in the results section. documented in this encounter Results DX Chest AP or PA and Lateral 2 Views (08/18/2008 9:44 PM [facility]) Anatomical Region Laterality Modality Chest, Thoracic RST LOS N/A Radiographic Xi ging Specimen (Source) Anatomical Collection Method Collection Time Re ceived Time Location / / Volume Laterality 08/18/2008 9:44 PM MST Narrative 08/18/2008 9:57 PM [facility] Indications: ?PNE PATHWAY CALL [id number] IF POS - pt unable to remove bilateral nipple rings ORIGINAL REPORT - 18-Aug-2008 21:57:00 ED Chest PA & Lateral A spinal stimulator device and bilateral nipple rings are noted. Clips are noted in the right upper quadrant. The lungs are clear without evidence of focal consolidation, pleural effusion or pneumothora x. The cardiomediastinal silhouette is s table and unremarkable. Comparison made with 08/06/1908. ?? This report has been electronically sign ed by Tom Lopez MD on Aug 18 2008 ??9:56PM. Electronically signed by: ?? Rey Lopez MD 18-Aug-2008 21:57 Procedure Note Tom Lopez M.D. - 07/25/2018Fo rmatting of this note might be different from the original. Indications: PNE PATHWAY CALL [id number] IF P OS - pt unable to remove bilateral nipple rings ORIGINAL REPORT - 18-Aug-2008 21:57:00 ED Chest PA & Lateral A spinal stimulator device and bilateral nipple rings are noted. Clips are noted in the right upper quadrant. The lungs are clear without evidence of focal consolidation, pleural effusion or pneumothorax. The cardiomediastinal silhouette is stable a nd unremarkable. Comparison made with 08/06/1908. This report has been electronically sign ed by Tom Lopez MD on Aug 18 2008 9:56PM. Electronically signed by: Rey Lopez MD 18-Aug-2008 21:57 Sirisha Velásquez M.D. [facility] DURES documented in this encounter Visit Diagnoses Not on filedocumented in this encounter
--- OUTSIDE RECORDS SUMMARY | 2022-07-06 14:57 | XMS_ITS | Encounter Summary ---
:1965 Author Organization [facility] Address [address] [place] [address] Care Team Providers Name Role Phone Unavailable Primary Care Provider Unavailable Encounter Details Date Type Department Care Team Description 05/07/2008 Hospital Encounter HX NO MAPPING Social History [...] you attend sabianist or Patient refused 2021 denominational services? Do [...] or slept in a detention (including now)? Sex Assigned at Date Recorded Female 03/01/2019 10:12 AM CDT documented as of this encounter Plan of Treatment Not on filedocumented as of this encounter Visit Diagnoses Not on filedocumented in this encounter
--- OUTSIDE RECORDS SUMMARY | 2022-07-06 14:57 | XMS_ITS | Encounter Summary ---
:1965 Author Organization [facility] Address [address] [place] [address] Care Team Providers Name Role Phone Unavailable Primary Care Provider Unavailable Encounter Details Date Type Department Care Team Description 06/21/2017 Hospital Encounter HX [facility] Hernesto Watson M.D. [address] [facility], [address] [place] [address] (Wo rk) Social History Tobacco Use Types [...] you attend amish or Patient refused 2021 yazidi services? Do [...] Sign Reading Time Taken Comments Blood Pressure 124/62 06/21/2017 1:25 PM CDT Pulse - - Temperature - - Respiratory Rate - - Oxygen Saturation - - Inhaled Oxygen Concentration - - Weight 70.5 kg (155 lb 8.6 oz) 06/21/2017 1:25 PM CDT Height - - Body Mass Index - [...] 17 gram/dose needed for oral powder constipation. alum-mag Take 30 mL by mouth 0 01/16/201002/02 hydroxide-simeth (MAALOX every 4 (four) hours ADVANCED) 200-200-20 as needed for mg/5 mL suspension indigestion or heartburn. ARIPiprazole (ABILIFY) 2 Take 2 mg by mouth 0 03/01/2019 mg tablet daily. fluticasone propionate Administer 2 sprays 0 04/2802/02/2021 (FLONASE) 50 into affected mcg/actuation nasal nostril(s) at spray bedtime. lidocaine (LIDODERM) 5 % Apply 1 patch to 0 01/1902/02/2021 painful area of skin for up to 12 hours within a 24-hour period as needed for pain methocarbamol (ROBAXIN) Take 1 tablet by 0 201603/01/2019 500 mg tablet mouth. NON FORMULARY Take by mouth every 6 0 07/24/2009 03/29/2019 (six) hours. documented as of this encounter Procedure Notes Sergio Watson M.D. - 06/21/2017 12:00 AM CDT 1EMG EMG RECYCLING ASSISTANT Sergio Watson MD ([phone]) REFERRED BY Dr. Romero. REFERRED FOR Ms. Mosquera is a very pleasant 52-year-old female who has a past medical history for multiple cervical spine surgeries including a posterior C3 through T1 fusion. She has developed right greater than left hand paresthesias for the past several months primarily involve the thumb, index and long digits of the bilateral hands. SUMMARY Prior to starting the procedure, the patients identity was verified, pertinent available records were reviewed, the nature of the procedure was explained, the appropriate sites of the exam were confirmed directly with the patient, and a pre-procedure pause was performed for final verification of all of the above. Please see nerve conduction and needle electromyographic examination summary data scanned into medical record. Nerve conduction studies of the bilateral upper extremities demonstrated low- amplitude median motor and sensory action potentials with prolonged median motor and sensory distal latencies on the right. The right median sensory conduction velocity was slowed. The left median palmar sensory distal latency was prolonged. Needle examination showed fibrillation potentials and large motor unit potentials inthe median innervated opponens pollicis on the right. There were large motor unit potentials in C7 innervated muscles on the right. The cervical paraspinals were not evaluated secondary to the patient's previous cervical spine surgery. CLINICAL INTERPRETATION 1. 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 These findings are consistent with the clinical diagnosis of bilateral carpal tunnel syndrome. 2. There is electrophysiologic evidence of a chronic right C7 radiculopathy with no evidence of active denervation. Sergio Watson M.D./cheri Electronically Signed By: SERGIO WATSON MD On: 06/21/2017 03:10 PM Modified by and Electronically Signed by: SERGIO WATSON MD On: 06/21/2017 03:10 PM Source: [facility] MHSDOLBEYNONRADSYS Document Id: [id number] documented in this encounter Miscellaneous Notes Miscellaneous - Sergio Watson M.D. - 06/21/2017 2:19 PM CDT Ambulatory Discharge Medication List [address] [id number] Visit Information Name: NAPOLEON, KAYLIN J [facility] Number: [id number] Current Date: 06/21/2017 14:19:38 Attending Provider: SERGIO WATSON MD Primary Care Provider: PCP, ELSEWHERE KAYLIN MOSQUERA has been given the following list of medications: Your Medications It is important to take your medications as directed. Use a pill box or chart to help remind you to take your medications. Please let your doctor or nurse know if you have problems taking your medications. Medication/Strength How to Take Indications/Special Instructions/Comments/Notes for Patient Medication Changes/Routing No Medications found Stop Taking the Following Medications: Medication list as of 06-21-17 14:19 Attention: If you have any medications at home that are not on this list, DO NOT take them until youcontact your provider for clarification. Give a copy of your medication list to your primary care provider. Update your medication list any time medications or doses are changed and carry your medication list at all times in case of emergency. Electronically Signed By: SERGIO WATSON MD Signed On:21-JUN-2017 14:19:21 Additional Information: Source: [facility] POWERCHART Document Id: [id number] Miscellaneous - Sergio Watson M.D. - 06/21/2017 2:19 PM CDT Ambulatory Patient Summary [address] [id number] Visit Information Name: KAYLIN MOSQUERA [facility] Number: [id number] Current Date: 06/21/2017 14:19:38 Physicians Attending Provider: SERGIO WATSON MD Primary Care Provider: PCP, ELSEWHERE KAYLIN MOSQUERA has been given the following list of follow-up instructions, medication list, andpatient education materials: Follow-up Instructions Your Medications Here is a list of your medications. It is important to take your medications as directed. Use a pillbox or chart to help remind you to take your medications. Please let your doctor or nurse know if you have problems taking your medications. Medication/Strength How to Take Indications/Special Instructions/Comments/Notes for Patient Medication Changes/Routing No Medications found Stop Taking the Following Medications: Medication list as of 06-21-17 14:19 Attention: If you have any medications at home that are not on this list, DO NOT take them until youcontact your provider for clarification. Give a copy of your medication list to your primary care provider. Update your medication list any time medications or doses are changed and carry your medication list at all times in case of emergency. Electronically Signed By: SERGIO WATSON MD Signed On:21-JUN-2017 14:19:21 Your Allergies & Intolerances Substance Reaction Symptoms Category Comments No Allergies found Your Problem List Problem Status Onset Comments No Problems found Your Upcoming Appointments Date Time Location Provider No Appointments found Attention: Contact your local Clinic if further appointment detail needed. Consider Using Patient Online Services Patient Online Services is a secure online and Mobile application that lets you: ?? View lab and test results ?? View portions of your medical record including clinical notes, immunizations and discharge summaries ?? Request an appointment or medication refill ?? Review your appointment schedule ?? Send secure messages to your care team Its easy to create an account if you dont have one. Go to [email or web address] and click on Create Your Account. Then, follow the directions to complete the online form. Youll be asked for your [facility] number which you can find at the top of this document. Your Goals/Additional instructions: Source: [facility] POWERCHART Document Id: [id number] Miscellaneous - Ayla Mcmanus, L.P.N. - 06/21/2017 1:25 PM CDT Adult Computing Consultant Intake/History Adult Computing Consultant Intake/History Entered On: 06/21/2017 13:26 CDT Performed On: 06/21/2017 13:25 CDT by MARIETTA, AYLA J FREIGHT SOLICITOR Intake Systolic Blood Pressure : 124 mmHg Diastolic Blood Pressure : 62 mmHg NIBP Mean : 83 mmHg BP Location : Left upper extremity Blood Pressure Cuff Size : Regular Actual Weight : 70.55 kg(Converted to: 155 lb 9 oz) Dosing Weight Clinic : 70.55 kg AYLA MCMANUS LPN - 06/21/2017 13:25 CDT General Info Information Given By : Patient Languages : Sami Is Patient Female and 13-50 no hysterectomy : No AYLA MCMANUS LPN - 06/21/2017 13:25 CDT Subjective Pain Symptoms : No AYLA MCMANUS LPN - 06/21/2017 13:25 CDT Dependent Habits Exposure to Tobacco Smoke : Patient smokes Smoking Status : Current every day smoker Tobacco 2A : Yes Tobacco Use/Currently Using : Yes Tobacco Use/Last 30 Days : Yes Tobacco Use/Last 12 months : Yes Type : Cigarettes: Less than 20 per day Tobacco Use/Advised to Quit : Yes AYLA MCMANUS LPN - 06/21/2017 13:25 CDT [facility] POWER[facility] Document Id: [id number] CDT!24 documented in this encounter Plan of Treatment Not on filedocumented as of this encounter Visit Diagnoses Not on filedocumented in this encounter
--- OUTSIDE RECORDS SUMMARY | 2022-07-06 14:57 | XMS_ITS | Encounter Summary ---
:1965 Author Organization [facility] Address [address] [place] [address] Care Team Providers Name Role Phone Unavailable Primary Care Provider Unavailable Reason for Visit Outpatient (Routine) - Closed Specialty Diagnoses / Procedures Referred By Contact Refer red To Contact Otorhinolaryngology Diagnoses Sinus Nose Disorder [facility] [address] [place] [address] Referral ID Status Reason Start Date Expiration Date Visits Requ ested Visits Authorized [id number] Closed 01/10/2019 01/10/2020 1 1 Encounter Details Date Type Department Care Team Description 03/01/2019 Comprehensive Visit Department of [facility], Sinusit is Chronic (Primary Dx); Otorhinolaryngology in [place] , [facility] N[facility] [address] [facility] [address] [place] [address] [place] [id number] Social History Tobacco Use Types Packs/Day Years [...] you attend christian or Patient refused 2021 alevism services? Do [...] documented as of this encounter Consult Notes Corrie Lunsford M.D. - 03/01/2019 10:00 AM CDT SUBJECTIVE Facial pain CHIEF COMPLAINT / REASON FOR VISIT Angie Mosquera is a 53 y.o. female who presents for an evaluation of nasal obstruction. HISTORY OF PRESENT ILLNESS It has been present for greater than 6 months. It is severe. The obstruction is bilateral but worse on the left. It is constant. Patient does have allergies. Allergic symptoms include rhinorrhea, sneezing and ocular symptoms. Patient has had positive allergy testing. Treatments have included nasal steroid spray for greater than three months. Improvement with treatment was none. Patient has no symptoms or diagnosis of reflux. Treatment measures for reflux include none needed. Patient has a history oftrauma. Patient has had prior nasal surgery including sinus surgery X2 in [place] and X2 at [place] per patient; mucocele noted by left eye on 2 recent visits. Patient does not have concerns regarding appearance. Patient also has a history of sinusitis, facial pain, facial pressure, drainage, headaches and decreased sense of smell. Tobacco use: Patient currently uses tobacco, 1/4 pack per day, interested in quitting no Alcohol use: none Use of a mask: no Contact sports: No The following portions of the patient's history were reviewed and updated as appropriate: family history, medical history, social history, surgical history and problem list. Medical history: Cervical fusion, Gastric bypass, spinal stimulator, knee arthoplasty, shoulder arthroplasty. OBJECTIVE PHYSICAL EXAM Physical Exam General: Alert and oriented, No acute distress. Appearance: Well nourished. Behavior: Appropriate, communicative. HENT: A comprehensive head and neck examination is performed, the findings were as follows: Head and Face: Normocephalic, atraumatic with no diagnostic facies. Face symmetrical, no weakness. No masses, sinus tenderness or temporal wasting. Parotids and submandibular glands normal. Skin: No scars, lesions on the scalp face or neck. Eyes: EDMI. Ears: External ears normal, canals patent, Nose: Skin thickness: medium-thick. Upper third: straight. Middle third: straight. Turbinates: normal. Mucosa: normal. Decongestion: no improvement with decongestion. Modified Mobile: not performed. Rigid exam with a 30 degree endoscope after topical application of Afrin and lidocaine nasal spray showed fullness in the area of the frontal recess that was painful to gentle palpation greater on the left than right. Neuro/Psychiatric: Alert and oriented x 3, affect normal. Good voice quality. Oral cavity/oropharynx: No trismus, adequate dentition. No lesions or masses of the lips, gingiva, buccal mucosa, hard and soft palate, uvula, floor ot mouth or oral tongue, tongue base, tonsillar fosse. Upon palpation the oral tongue, tongue base floor of mouth and tonsillar fossa were soft and symmetrical Neck: Symmetrically soft and supple, no masses, adenopathy. Trachea midline Thyroid: No thyromegaly. Lungs: Respiratory rate regular, equal expansion CN: Peripheral pulses present, no edema Neuro/Psychiatric: Alert and oriented x 3, affect normal. Good voice quality. 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 - Informed consent was obtained. - Obtained outside operative reports from [facility] - Discussed risks and benefits including but not limited to injury to the eye, lacrimal duct and CSFleak. Time spent with patient (counseling time more than 50% of visit:) 30 minutes Procedures Associated attestation - [place] Olmedo M.D. - 03/02/2019 10:32 PM CDT I saw and evaluated the patient, participating in the dodson portions of the service. I reviewed the resident/fellow???s note. I agree with the resident/fellow???s findings and plan. Ms. 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 The mucocele has increased in size between her last two CT scans. There is a smaller mucocele in the right anterior ethmoid which does not yet have bone erosion. I recommend endoscopic anterior ethmoidectomy bilaterally. Risks include potential injury to the eye or tear duct, recurrence, or other complications. documented in this encounter Plan of Treatment Not on filedocumented as of this encounter Visit Diagnoses Diagnosis Sinusitis Chronic - Primary Sinus Nose Disorder documented in this encounter
--- OUTSIDE RECORDS SUMMARY | 2022-07-06 14:57 | XMS_ITS | Encounter Summary ---
:1965 Author Organization [facility] Address [address] [place] [address] Care Team Providers Name Role Phone Unavailable Primary Care Provider Unavailable Encounter Details Date Type Department Care Team Description 02/03/2009 - Hospital Encounter HX ADIL[place] NO MAPPING Provider, Jadyn hough 02/04/2009 Social History Tobacco Use Types Packs/Day Years [...] you attend scientology or Patient refused 2021 holiness services? Do [...] nts DX CHEST AP OR PA Routine 02/03/2009 9:31 PM Resu lts for this AND LATERAL 2 VIEWS MST procedur e are in the results section. ECG 12-LEAD WITH Routine 02/03/2009 12:00 AM RHYTHM STRIP MST documented in this encounter Results DX Chest AP or PA and Lateral 2 Views (02/03/2009 9:31 PM MST) Anatomical Region Laterality Modality Chest, Thoracic RST LOS N/A Radiographic Xi ging Specimen (Source) Anatomical Collection Method Collection Time Re ceived Time Location / / Volume Laterality 02/03/2009 9:31 PM MST Narrative 02/03/2009 9:46 PM MST Indications: ?CP PATHWAY CALL [id number] IF POS ?? tech: pt. not and was shielded for exam. ORIGINAL REPORT - 03-Feb-2009 21:46:00 ED Chest PA & Lateral Comparison is made with 08/18/2008. Lung s are clear. Heart size and vascularity within normal limits. No pleural fluid. Spinal stimulator device is unchanged in position. ?? This report has been electronically sign ed by Kelly Dong MD on Jan ??2008 ??9:45PM. Electronically signed by: ?? Jonny Reyes 03-Feb-2009 21:46 Procedure Note Kelly Dong M.D. - 07/25/2018Format ting of this note might be different from the original. Indications: CP PATHWAY CALL [id number] IF PO S tech: pt. not and was shielded for exam. ORIGINAL REPORT - 03-Feb-2009 21:46:00 ED Chest PA & Lateral Comparison is made with 08/18/2008. Lung s are clear. Heart size and vascularity within normal limits. No pleural fluid. Spinal stimulator device is unchanged in position. This report has been electronically sign ed by Kelly Dong MD on Feb 03 2009 9:45PM. Electronically signed by: Jonny Reyes 03-Feb-2009 21:46 He [facility] PROCE DURES ECG 12 Lead with rhythm strip (02/03/2009 12:00 AM [facility]) Specimen (Source) Anatomical Location Collection Method / Collectio n Time Received Time / Laterality Volume 02/03/2009 Historical Provider ECG ORDERABLES Performing Organization Address City/State/ZIP Code Phon e Number [place] CONVERSION documented in this encounter Visit Diagnoses Not on filedocumented in this encounter
--- OUTSIDE RECORDS SUMMARY | 2022-07-06 14:57 | XMS_ITS | Encounter Summary ---
:1965 Author Organization [facility] Address [address] [place] [address] Care Team Providers Name Role Phone Unavailable Primary Care Provider Unavailable Encounter Details Date Type Department Care Team Description 07/06/2008 Hospital Encounter HX ARZ NO MAPPING Provider, [...] you attend bahai or Patient refused 2021 restoration services? Do [...] nts DX CHEST AP OR PA Routine 07/06/2008 4:56 PM Resu lts for this AND LATERAL 2 VIEWS MST procedur e are in the results section. documented in this encounter Results DX Chest AP or PA and Lateral 2 Views (07/06/2008 4:56 PM MST) Anatomical Region Laterality Modality Chest, Thoracic RST LOS N/A Radiographic Xi ging Specimen (Source) Anatomical Collection Method Collection Time Re ceived Time Location / / Volume Laterality 07/06/2008 4:56 PM MST Narrative 07/06/2008 5:07 PM [facility] Indications: ?PNE PATHWAY CALL [id number] IF POS. ??TECHNOTE: NIPPLE PIERCINGS LUNG ARTIFACT. ORIGINAL REPORT - 06-Jul-2008 17:07:00 ED Chest PA & Lateral The lungs remain clear and the heart siz e normal compared with 09/08/2007. ?? Interval bilateral nipple rings have bee n placed. ?? Spinal stimulator unchanged. ?? Surgical clips right upper quadrant of the abdomen. ?? This report has been electronically sign ed by Sanchez Keen MD on Jun ??2007 ??5:06PM. Electronically signed by: ?? Ashley Keen MD. 06-Jul-2008 17:07 Procedure Note Sanchez Keen M.D. - 07/25/2018Format ting of this note might be different from the original. Indications: PNE PATHWAY CALL [id number] IF P OS. TECHNOTE: NIPPLE PIERCINGS LUNG ARTIFACT. ORIGINAL REPORT - 06-Jul-2008 17:07:00 ED Chest PA & Lateral The lungs remain clear and the heart siz e normal compared with 09/08/2007. Interval bilateral nipple rings have bee n placed. Spinal stimulator unchanged. Surgical clips right upper quadrant of the abdomen. This report has been electronically sign ed by Sanchez Keen MD on Jul 06 2008 5:06PM. Electronically signed by: Ashley Keen MD. 06-Jul-2008 17:07 Tamir [facility] PROCE DURES documented in this encounter Visit Diagnoses Not on filedocumented in this encounter
--- OUTSIDE RECORDS SUMMARY | 2022-07-06 14:57 | XMS_ITS | Encounter Summary ---
:1965 Author Organization [facility] Address [address] [place] [address] Care Team Providers Name Role Phone Unavailable Primary Care Provider Unavailable Encounter Details Date Type Department Care Team Description 07/25/2009 - Hospital Encounter HX ARZ NO MAPPING Provider, Jadyn hough 07/24/2010 Social History Tobacco Use Types Packs/Day Years [...] you attend christian or Patient refused 2021 confucianist services? Do [...]
--- OUTSIDE RECORDS SUMMARY | 2022-07-06 14:57 | XMS_ITS | Encounter Summary ---
:1965 Author Organization [facility] Address [address] [place] [address] Care Team Providers Name Role Phone Elsewhere, Pcp Primary Care Provider Unavailable Reason for Referral Outpatient (Routine) - Closed Specialty Diagnoses / Procedures Referred By Contact Refer red To Contact Otorhinolaryngology Diagnoses Sinus Nose Disorder Sinusitis Chronic Chris Mckeon [place] M.D. [address] [place] [address] Referral ID Status Reason Start Date Expiration Date Visits Requ ested Visits Authorized [id number] Closed 01/10/2019 01/10/2020 1 1 RECREATION ASSISTANT Encounter Details Date Type Department Care Team Description 01/10/2019 [facility] Mike, Sinu s Nose Disorder (Primary Dx); AND CLINICS Chris Celaya M.D. Sinusitis Chronic [address] [facility] [address] [place] [address] [place], [place] [phone] [id number] Social History Tobacco Use Types Packs/Day Years [...] you attend confucianist or Patient refused 2021 hinduism services? 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
--- OUTSIDE RECORDS SUMMARY | 2022-07-06 14:58 | XMS_ITS | Encounter Summary ---
:1965 Author Organization [facility] Address [address] [place] [id number] Care Team Providers Name Role Phone [facility], [facility] Primary Care Provide r Encounter Details Date Type Department Care Team Description [facility] ProviderAlea Social History Tobacco Use Types Packs/Day Years Used Date Current Every Day Smoker 0.5 Smokeless Tobacco: Never Used Alcohol Use Standard Drinks/Week Comments No 0 (1 standard drink = 0.6 oz pure alcoho l) Sex Assigned at Date Recorded Not on file documented as of this encounter Plan of Treatment Not on filedocumented as of this encounter Visit Diagnoses Not on filedocumented in this encounter Care Teams Plate Molder Relationship Specialty Start Date End Date [facility] PCP - General 06/03/[address] [place] [address] documented as of this encounter
--- OUTSIDE RECORDS SUMMARY | 2022-07-06 14:58 | XMS_ITS | Encounter Summary ---
:1965 Author Organization [place] Address [facility] [place] [address] Care Team Providers Name Role Phone Clinic, [facility] [place] Primary Care Provider [phone] Reason for Visit Reason Comments Fall Encounter Details Date Type Department Care Team Description 05/17/2017 Emergency [facility] Jose Guadalupe Betancourt MD Acute neck pain; [facility] Emergency Dep t [facility] Shoulder strain, unspecified laterality, initial encounter [address] [place], [place] [address] [employer] [id number] [place] [address] [place], [place] [id number] (Wo rk) Social History Tobacco Use Types Packs/Day Years Used Date Current Every Day Smoker 0.5 Alcohol Use Standard Drinks/Week Comments No 0 (1 standard drink = 0.6 oz pure alcoho l) Sex Assigned at Date Recorded Not on file documented as of this encounter Last Filed Vital Signs Vital Sign Reading Time Taken Comments Blood Pressure 110/85 05/17/2017 10:15 PM CDT Pulse - - Temperature 36.7 ??C (98 ??F) 05/17/2017 7:26 PM CDT Respiratory Rate 16 05/17/2017 7:26 PM CDT Oxygen Saturation 97% 05/17/2017 10:04 PM CDT Inhaled Oxygen Concentration - - Weight 68 kg (150 lb) 05/17/2017 7:26 PM CDT Height 152.4 cm (5') 05/17/2017 7:26 PM CDT Body Mass Index 29.29 05/17/2017 7:26 PM CDT documented in this encounter Discharge Instructions Discharge InstructionsJose Guadalupe Betancourt MD - 05/17/2017 9:45 PM CDT Please follow up with Dr. Brooke for the possible loosening of your screws of your cervical fusion Discharge Instructions Neck Strain You have been seen today for a neck sprain or strain. Neck strains usually result from an injury to the neck. Car accidents, contact sports and falls are common causes of neck strain. Sometimes your neck can start to hurt because of increased activity, muscle tension, an abnormal sleeping position, orbecause of other problems like arthritis in the neck. Neck pain usually comes from injured muscles and ligaments. Sometimes there is a herniated (???slipped?? ) disc. We don???t usually do MRI scans to look for these right away, since most herniated discswill get better on their own with time. Today, we did not find any evidence that your neck pain was caused by a serious condition, such as an infection, fracture, or tumor. However, sometimes symptoms develop over time and cannot be found during an emergency visit, so it is very important that you follow up with your primary doctor. Return to the Emergency Department if: ??? You have increasing pain in your neck. ??? You develop difficulty swallowing or breathing. ??? You have numbness, weakness, or trouble moving your arms or legs. ??? You have severe dizziness and difficulty walking. ??? You are unable to control your bladder or bowels. ??? You develop severe headache or ringing in the ears. Call your doctor if: ??? Your neck pain is not controlled with the medicine we gave you. ??? You are not back to normal within 1 week. What can I do to help myself at home? If you had an injury, use cold for the first 1-2 days. Cold helps relieve pain and reduce inflammation. Apply ice packs to the neck or areas of pain every 1-2 hours for 20 minutes at a time. Place a towel or cloth between your skin and the ice pack. ??? After the first 2 days, using heat can help with neck pain and stiffness. You may use a warm shower or bath, warm towels on the neck, or a heating pad. Do not sleep with a heating pad, as you can be burned. ??? Pain medications - You may take a pain medication such as Tylenol?? (acetaminophen), Advil??, Nuprin?? (ibuprofen) or Aleve?? (naproxen). If you have been given a narcotic such as Vicodin?? (hydrocodone with acetaminophen), Percocet?? (oxycodone with acetaminophen), codeine, or a muscle relaxant such as Flexeril?? (cyclobenzaprine) or Soma?? (carisoprodol), do not drive for four hours after you have taken it. If the narcotic contains Tylenol?? (acetaminophen), do not take Tylenol?? with it. All narcotics will cause constipation, so eat a high fiber diet. ??? It is usually best to rest the neck for 1-2 days after an injury, then start gentle stretching exercises. ??? It is helpful to place a small pillow under the nape of your neck to provide proper neutral positioning. ??? You should stay active and do your usual work as much as you can, unless this involves heavy physical labor. Ask your doctor if you need work restrictions. If you were given a prescription for medicine here today, be sure to read all of the information (including the package insert) that comes with your prescription. This will include important information about the medicine, its side effects, and any warnings that you need to know about. The pharmacist who fills the prescription can provide more information and answer questions you may have about the medicine. If you have questions or concerns that the pharmacist cannot address, please call or return to the Emergency Department. Opioid Medication Information Pain medications are among the most commonly prescribed medicines, so we are including this information for all our patients. If you did not receive pain medication or get a prescription for pain medicine, you can ignore it. You may have been given a prescription for an opioid (narcotic) pain medicine and/or have received apain medicine while here in the Emergency Department. These medicines can make you drowsy or impaired. You must not drive, operate dangerous equipment, or engage in any other dangerous activities whiletaking these medications. If you drive while taking these medications, you could be arrested for DUI, or driving under the influence. Do not drink any alcohol while you are taking these medications. Opioid pain medications can cause addiction. If you have a history of chemical dependency of any type, you are at a higher risk of becoming addicted to pain medications. Only take these prescribed medications to treat your pain when all other options have been tried. Take it for as short a time and asfew doses as possible. Store your pain pills in a secure place, as they are frequently stolen and provide a dangerous opportunity for children or visitors in your house to start abusing these powerful medications. We will not replace any lost or stolen medicine. As soon as your pain is better, you should flush all your remaining medication. Many prescription pain medications contain Tylenol?? (acetaminophen), including Vicodin??, Tylenol #3??, Nichols??, Lortab??, and Percocet??. You should not take any extra pills of Tylenol?? if you are using these prescription medications or you can get very sick. Do not ever take more than 3000 mg of acetaminophen in any 24 hour period. All opioids tend to cause constipation. Drink plenty of water and eat foods that have a lot of fiber, such as fruits, vegetables, prune juice, apple juice and high fiber cereal. Take a laxative if you don???t move your bowels at least every other day. Miralax??, Milk of Magnesia, Colace??, or Senna?? can be used to keep you regular. Remember that you can always come back to the Emergency Department if you are not able to see your regular doctor in the amount of time listed above, if you get any new symptoms, or if there is anything that worries you. Discharge Instructions Extremity Injury You were seen today for an injury to an extremity (arm, hand, leg, or foot). You may have a bruise, strain, or fracture (broken bone). Return to the Emergency Department or see your regular doctor if your injured area is not back to normal within 5-7 days. Return to the Emergency Department right away if: ??? Your pain seems to change or get worse or there is pain in a new area. ??? Your extremity becomes pale, cool, blue, or numb or tingling past the injury. ??? You have more drainage, redness or pain in the area of the cut or abrasion. ??? You have pain that you can???t control with the medicine recommended or prescribed here, or you have pain that seems too much for your injury. ??? Your child will not stop crying or is much more fussy than normal. ??? You have new symptoms or anything that worries you. What to Expect: ??? Your swelling and pain may be worse the day after your injury, but should not be severe and should start getting better after that. You should not have new symptoms and your pain should not get worse. ??? You may start to get a bruise over the injured area or below the injured area. ??? Your movement and strength should get better with time. ??? Some injuries may not show up until after you have left the Emergency Department so it is important to follow-up with your regular doctor. ??? Your injury may prevent you from working. Follow-up with your regular doctor to get a work release note. ??? Pain medications or your injury may make it unsafe to drive or operate machinery. Home Care: ??? Apply ice your injured area for 15 minutes at a time, at least 3 times a day. Use a cloth between the ice bag and your skin to prevent frostbite. ??? Do not sleep with an ice pack or heating pad on, since this can cause brothers or skin injury. ??? Rest your injured area for at least 1-2 days. After that you may start using your extremity again as long as there is not too much pain. ??? Raise the injured area above the level of your heart as much as possible in the first 1-2 days. ??? Use Tylenol?? (acetaminophen), Motrin (ibuprofen), or Advil?? (ibuprofen) for your pain unless you have an allergy or are told not to use these medications by your doctor. Take the medications as instructed on the package. Tylenol?? (acetaminophen) is in many prescription medicines and non-prescription medicines--check all of your medicines to be sure you aren???t taking more than 3000 mg per day. ??? You may use an elastic bandage (Moise?? Wrap) if it makes you more comfortable. Wrap it just tightenough to provide light compression, like a new pair of socks feels. Loosen the bandage if you have swelling past the bandage. ??? Please follow any other instructions that were discussed with you by your doctor. MORE INFORMATION: X-rays: X-rays done today were read by your doctor but will also be read by a radiologist. We will contact you if the radiologist sees anything different on the x-ray. Your regular doctor may also wantto review your x-rays on follow-up. You could have a fracture (break), even if we told you your x-rays were normal. X-rays are not always certain, and some fractures are hard to see and may not show up right away. Also, your x-ray may look like you have a fracture, even though you do not. It is important to follow-up with your regular doctor. Stretching: If your injury was to your arm or shoulder and your doctor put you in a sling or an immobilizer, it is important that you take off your immobilizer within 3 days and stretch/move your shoulder, unless your doctor specifically tells you to not move your shoulder. This is to prevent further injury such as a ???frozen shoulder?? . If you were given a prescription for medicine here today, be sure to read all of the information (including the package insert) that comes with your prescription. This will include important information about the medicine, its side effects, and any warnings that you need to know about. The pharmacist who fills the prescription can provide more information and answer questions you may have about the medicine. If you have questions or concerns that the pharmacist cannot address, please call or return to the Emergency Department. Opioid Medication Information Pain medications are among the most commonly prescribed medicines, so we are including this information for all our patients. If you did not receive pain medication or get a prescription for pain medicine, you can ignore it. You may have been given a prescription for an opioid (narcotic) pain medicine and/or have received apain medicine while here in the Emergency Department. These medicines can make you drowsy or impaired. You must not drive, operate dangerous equipment, or engage in any other dangerous activities whiletaking these medications. If you drive while taking these medications, you could be arrested for DUI, or driving under the influence. Do not drink any alcohol while you are taking these medications. Opioid pain medications can cause addiction. If you have a history of chemical dependency of any type, you are at a higher risk of becoming addicted to pain medications. Only take these prescribed medications to treat your pain when all other options have been tried. Take it for as short a time and asfew doses as possible. Store your pain pills in a secure place, as they are frequently stolen and provide a dangerous opportunity for children or visitors in your house to start abusing these powerful medications. We will not replace any lost or stolen medicine. As soon as your pain is better, you should flush all your remaining medication. Many prescription pain medications contain Tylenol?? (acetaminophen), including Vicodin??, Tylenol #3??, [place]??, Lortab??, and Percocet??. You should not take any extra pills of Tylenol?? if you are using these prescription medications or you can get very sick. Do not ever take more than 3000 mg of acetaminophen in any 24 hour period. All opioids tend to cause constipation. Drink plenty of water and eat foods that have a lot of fiber, such as fruits, vegetables, prune juice, apple juice and high fiber cereal. Take a laxative if you don???t move your bowels at least every other day. Miralax??, Milk of Magnesia, Colace??, or Senna?? can be used to keep you regular. Remember that you can always come back to the Emergency Department if you are not able to see your regular doctor in the amount of time listed above, if you get any new symptoms, or if there is anything that worries you. documented in this encounter Medications at Time of Discharge Medication Sig Dispensed Refills Start Date End Date Furosemide (LASIX PO) Take 40 mg by mouth 0 daily (Takes 2 x 20mg tablet = 40mg dose) LamoTRIgine (LAMICTAL PO) Take 200 mg by mouth 0 2 times daily potassium chloride rebekah Take 20 mEq by mouth 0 er (K-DUR) 2 times daily (Takes 2 x 10meq tablet = 20meq dose) Pregabalin (LYRICA PO) Take 150 mg by mouth 0 daily diazepam (VALIUM) 2 MG Take 1 tablet (2 mg) 20 tablet 0 06/03/2017 tablet by mouth every 12 hours as needed for muscle spasms Omeprazole (PRILOSEC PO) 0 10/14/2017 documented as of this encounter ED Notes Shannon Palomino RN - 05/17/2017 7:32 PM CDT Patient was told and place NPO until further notice Shannon Palomino RN - 05/17/2017 7:28 PM CDT Patient presents to ED due neck pain and shoulder pain. Reports having a a large tote fall on top of me and I fell backwards. My back and neck hit a dresser Denies LOC. ROM WNL Reports midline tenderness to neck, c- collar placed. Hx neck fusion Reports taking tylenol 2 hrs [employer] Jose Guadalupe Betancourt MD - 05/17/2017 7:20 PM CDT History Chief Complaint: Fall HPI Angie Mosquera is a 52 year old female who presents to the emergency department today for evaluation of a fall. Prior to arrival the patient was picking up a large tote and slipped, hitting the back of her neck on a dresser. The patient describes pain in her left shoulder, neck and arm. She has some numbness in her left hand as well. She denies hitting her head, lose of consciousness, or any chest pain or abdominal pain. 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 No pertinent family history. Social History: The patient was alone. Smoking Status: Current Every Day Smoker (0.5 packs/day) Smokeless Tobacco: No Alcohol Use: No Marital Status: Review of Systems Constitutional: Negative for fever. Respiratory: Negative for shortness of breath. Cardiovascular: Negative for chest pain. Musculoskeletal: Positive for arthralgias (left shoulder) and neck pain. Negative for back pain. Left arm pain Skin: Negative for wound. Neurological: Negative for syncope and headaches. All other systems reviewed and are negative. Physical Exam First Vitals: BP: 115/82 Heart Rate: 63 Temp: 98 ??F (36.7 ??C) Resp: 16 Height: 152.4 cm (5') Weight: 68 kg (150 lb) SpO2: 99 % Physical Exam Constitutional: Oriented to person, place, and time. Minor distress secondary to pain HENT: Atraumatic. Head: Normocephalic. Mouth/Throat: Oropharynx is clear and moist. Eyes: EOM are normal. Pupils are equal, round, and reactive to light. Neck: Neck supple. Cardiovascular: Normal rate, regular rhythm and normal heart sounds. Exam reveals no gallop and no friction rub. No murmur heard. Pulmonary/Chest: Effort normal and breath sounds normal. No respiratory distress. No wheezes. No rales. No reproducible chest wall pain. Abdominal: Soft. No distension. No tenderness. No rebound and no guarding. Musculoskeletal: Normal range of motion. Midline cervical spine tenderness and left shoulder humerus Full range of motion, no deformity. No step offs. Neurological: Alert and oriented to person, place, and time. Moves all 4 extremities spontaneously GCS 15. Cranial nerves 2-12 grossly normal. No meningeal signs. No ataxia. 5/5 strength and sensation intact to light touch in all 4 extremities. Skin: No rash noted. No pallor. Emergency Department Course Imaging: Radiology findings were communicated with the patient who voiced understanding of the findings. Humerus XR, G/E 2 Views Left IMPRESSION: No fractures are identified. Report per radiology XR Shoulder Left G/E 3 Views FINDINGS: ??Distal left clavicle has been previously resected. No fractures or dislocations are identified. Report per radiology Cervical spine T w/o Contrast IMPRESSION: 1. No fractures are identified. 2. Anterior fusion extending from C3-T1. Posterior fusion extending from C3-T1. 3. Lucencies around the anterior screws at C6, C7, and T1 would suggest loosening of the screws. Lucencies around the posterior screws at C6 and T1 would also suggest loosening of these posterior screws. Report per radiology Interventions: 2025 Percocet 5-325mg 1 Tablet PO 2025 Valium 5mg PO Emergency Department Course: Nursing notes and vitals reviewed. The patient was sent for a Humerus XR, G/E 2 Views Left, XR Shoulder Left G/E 3 Views, and Cervical spine T w/o Contrast while in the emergency department, results above. I performed an exam of the patient as documented above. 2140: I spoke with Dr. Davis of the [facility] regarding patient's presentation, findings, and plan of care. 2149: Patient rechecked and updated. I discussed the treatment plan with the patient. They expressed understanding of this plan and consented to discharge. They will be discharged home with instructions for care and follow up. In addition, the patient will return to the emergency department if their symptoms persist, worsen, if new symptoms arise or if there is any concern. All questions were answered. I personally reviewed the imaging results with the Patient and answered all related questions prior to discharge. Impression & Plan Medical Decision Making: Angie Mosquera is a 52 year old female who presents for evaluation of neck and shoulder pain afterfalling backwards hitting it on a dresser. Clinical examination is consistent with myofascial strain. There is no clinical or radiographic evidence of fracture. There is no evidence of cervical radiculo shane, ligamentous instability, myelopathy, dissection, spinal tumor or abscess at this time. I discussed with spine surgeon at patient???s clinic who discussed that loose screws within cervical fusionis likely chronic and unlikely acute. There is no need for cervical collar. I discussed worrisome symptoms/signs, if they were to evolve, that should prompt the patient to follow up more quickly or return to the ED. There are no red flag symptoms to suggest we need further workup or advanced imaging at this point. Their head to toe trauma exam is otherwise benign and reassuring. Supportive outpatientmanagement is indicated. I told her to follow up with spine surgeon. Diagnosis: ICD-10-CM 1. Acute neck pain M54.2 2. Shoulder strain, unspecified laterality, initial encounter S46.919A Disposition: Discharged to home with the below prescription Discharge Medications: New Prescriptions DIAZEPAM (VALIUM) 2 MG TABLET Take 1 tablet (2 mg) by mouth every 12 hours as needed for muscle spasms Scribe Disclosure: I, Dionne Loredo, am serving as a scribe at 8:26 PM on 05/17/2017 to document services personally performed by Jose Guadalupe Betancourt MD, based on my observations and the provider's statements to me. 05/17/2017 [facility] EMERGENCY DEPARTMENT Jose Guadalupe Betancourt MD 05/18/17 0032 documented in this encounter Plan of Treatment Not on filedocumented as of this encounter Procedures Procedure Name Priority Date/Time Associated Diagnosis Comme nts XR HUMERUS LT G/E 2 STAT 05/17/2017 9:13 PM Re sults for this VW CDT procedure are i n the results section. XR SHOULDER LT G/E STAT 05/17/2017 9:13 PM Res ults for this 3 VW CDT procedure are i n the results section. CT CERVICAL SPINE STAT 05/17/2017 8:56 PM Resu lts for this W/O CONTRAST CDT procedure are i n the results section. documented in this encounter Results Humerus XR, G/E 2 views, left (05/17/2017 9:13 PM CDT) Anatomical Region Laterality Modality Left Arm Left Digital Radiography Specimen (Source) Anatomical Location Collection Method / Collectio n Time Received Time / Laterality Volume Impressions 05/17/2017 9:37 PM CDT IMPRESSION: No fractures are identified. NAZANIN MCCORMACK MD Narrative 05/17/2017 9:37 PM CDT XR HUMERUS LT G/E 2 VW ?05/17/2017 9:13 PM ?? HISTORY: injury COMPARISON: None. FINDINGS: ??There is normal osseous alig nment. ??No acute fractures are identified. ??The distal clavicle appear s to have been previously resected. Procedure Note Oli Mccormack MD - 05/17/2017For matting of this note might be different from the original. XR HUMERUS LT G/E 2 VW 05/17/2017 9:13 PM HISTORY: injury COMPARISON: None. FINDINGS: There is normal osseous alignm ent. No acute fractures are identified. The distal clavicle appears to have been previously resected. IMPRESSION: No fractures are identified. NAZANIN MCCORMACK MD Jose Guadalupe Betancourt MD IMG DIAGNOSTIC IMAGING ORDER ALEXANDER XR Shoulder Left G/E 3 Views (05/17/2017 9:13 PM CDT) Anatomical Region Laterality Modality Left Shoulder Left Digital Radiography Specimen (Source) Anatomical Location Collection Method / Collectio n Time Received Time / Laterality Volume Narrative 05/17/2017 9:37 PM CDT XR SHOULDER LT G/E 3 VW ??05/17/2017 9:13 PM HISTORY: ??injury COMPARISON: None. FINDINGS: ??Distal left clavicle has bee n previously resected. No fractures or dislocations are identified . NAZANIN MCCORMACK MD Procedure Note Oli Mccormack MD - 05/17/2017For matting of this note might be different from the original. XR SHOULDER LT G/E 3 VW 05/17/2017 9:13 P M HISTORY: injury COMPARISON: None. FINDINGS: Distal left clavicle has been previously resected. No fractures or dislocations are identified . NAZANIN MCCORMACK MD Jose Guadalupe Betancourt MD IMG DIAGNOSTIC IMAGING ORDER ALEXANDER Cervical spine CT w/o contrast (05/17/2017 8:56 PM CDT) Anatomical Region Laterality Modality Spine, SUBRAD CT NEURO, SUBRAD CT NEURO, P CT SPINE Computed Tomography Specimen (Source) Anatomical Location Collection Method / Collectio n Time Received Time / Laterality Volume Impressions 05/17/2017 9:37 PM CDT IMPRESSION: 1. No fractures are identified. 2. Anterior fusion extending from C3-T1. Posterior fusion extending from C3-T1. 3. Lucencies around the anterior screws at C6, C7, and T1 would suggest loosening of the screws. Lucenci es around the posterior screws at C6 and T1 would also suggest loosenin g of these posterior screws. NAZANIN MCCORMACK MD Narrative 05/17/2017 9:[address] CERVICAL SPINE W/O CONTRAST 05/17/2017 8:56 PM HISTORY: ??injury TECHNIQUE: ??Axial images of the cervica l spine were obtained without intravenous contrast. Coronal and sagitt al reformations were performed. ??Radiation dose for this sca n was reduced using automated exposure control, adjustment of the mA a nd/or kV according to patient size, or iterative reconstruction techni que. COMPARISON: None. FINDINGS: There are 7 ??cervical type ve rtebrae used for the purpose of this dictation. There is been a previous anterior fusion at C3-4, C4-5 and C5-6. Anterior interbody fusion saige chery are in place at C6-7 and C7-T1. Anterior plate extends from C6-T1 . Posterior instrumentation is in place extending from C3-T1. No fractu res are identified. There are lucencies around these screws in the C6, C7, and T1 vertebral bodies. There are also lucencies around the post erior screws at the T1 and C6 levels. The lucencies around the screws would suggest loosening of the screws. Procedure Note Oli Mccormack MD - 05/17/2017For matting of this note might be different from the original. CT CERVICAL SPINE W/O CONTRAST 05/17/2017 8:56 PM HISTORY: injury TECHNIQUE: Axial images of the cervical spine were obtained without intravenous contrast. Coronal and sagitt al reformations were performed. Radiation dose for this scan was reduced using automated exposure control, adjustment of the mA a nd/or kV according to patient size, or iterative reconstruction techni que. COMPARISON: None. FINDINGS: There are 7 cervical type vert ebrae used for the purpose of this dictation. There is been a previous anterior fusion at C3-4, C4-5 and C5-6. Anterior interbody fusion saige chery are in place at C6-7 and C7-T1. Anterior plate extends from C6-T1 . Posterior instrumentation is in place extending from C3-T1. No fractu res are identified. There are lucencies around these screws in the C6, C7, and T1 vertebral bodies. There are also lucencies around the post erior screws at the T1 and C6 levels. The lucencies around the screws would suggest loosening of the screws. IMPRESSION: 1. No fractures are identified. 2. Anterior fusion extending from C3-T1. Posterior fusion extending from C3-T1. 3. Lucencies around the anterior screws at C6, C7, and T1 would suggest loosening of the screws. Lucenci es around the posterior screws at C6 and T1 would also suggest loosenin g of these posterior screws. NAZANIN MCCORMACK MD Jose Guadalupe Betancourt MD [facility] ORDERABLES documented in this encounter Visit Diagnoses Diagnosis Acute neck pain Cervicalgia Shoulder strain, unspecified laterality, initial encounter documented in this encounter Administered Medications Inactive Administered Medications - up to 3 most recent administrations Medication Order MAR Action Action Date Dose Rate Site diazepam (VALIUM) tablet 5 mg Given 05/17/2017 8:26 PM CDT 5 mg 5 mg, Oral, ONCE, On Tue05/17/17 at 2005, For 1 dose oxyCODONE-acetaminophen (PERCOCET) 5-325 MG Given 04/29 8:26 PM CDT 1 tablet per tablet 1 tablet 1 tablet, Oral, ONCE, On Tue05/17/17 at 2006, For 1 dose, Maximum acetaminophen dose from all sources= 75 mg/kg/day not to exceed 4 grams documented in this encounter Active and Recently Administered Medications Times are shown in CDT. Scheduled Medication Order 05/15/2017 05/16/2017 05/17/2017 diazepam (VALIUM) tablet 5 mg (COMPLETED) 2025 (Given - Provider: Susana Martinez, RADHA) 5 mg, Oral, ONCE, 05/17/17 at 2006, For 1 dose oxyCODONE-acetaminophen (PERCOCET) 5-325 MG per tablet 1 tablet (COMPLETED) 2025 (Given - Provider: Susana Martinez RN) 1 tablet, Oral, ONCE, 05/17/17 at 200 6, For 1 dose, Maximum acetaminophen dose from all sources= 75 mg/kg/day not to exceed 4 grams documented in this encounter Care Teams Telephony Engineer Relationship Specialty Start Date End Date [facility], [facility] PCP - General 05/17/17 06/02/17 [address] [place] [address] documented as of this encounter
--- OUTSIDE RECORDS SUMMARY | 2022-07-06 14:58 | XMS_ITS | Encounter Summary ---
:1965 Author Organization [facility] Address [address] [place] [id number] Care Team Providers Name Role Phone 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
--- OUTSIDE RECORDS SUMMARY | 2022-07-06 14:58 | XMS_ITS | Clinical Summary ---
:1965 Author Organization [facility] Address [facility] [place] [address] Care Team Providers Name Role Phone Clinic, [facility] Primary Care Provide r Mor Bautista MD Unavailable Allergies Active Allergy Reactions Severity Noted Date Comments Acyclovir Rash Low 07/18/2016 Adhesive Tape 07/18/2016 Amoxicillin 07/18/2016 Benzoin Blisters 10/13/2017 Cephalosporins Rash Low 10/13/2017 Gabapentin 05/17/2017 Soy Allergy 10/13/2017 Zander Rash Low 10/13/2017 Sulfamethoxazole-Trimethoprim GI Disturbance 7 GI upset Chlorhexidine Dermatitis 10/13/2017 Tegaderm Transparent Dressing 07/18/2016 (Informational Only) Medications Medication Sig Dispensed Refills Start Date End Date Status Pregabalin (LYRICA PO) Take 150 mg by 0 Active mouth daily LamoTRIgine (LAMICTAL Take 200 mg by 0 Active PO) mouth 2 times daily potassium chloride Take 20 mEq by 0 Active rebekah er (K-DUR) mouth 2 times daily (Takes 2 x 10meq tablet = 20meq dose) Furosemide (LASIX PO) Take 40 mg by 0 Active mouth daily (Takes 2 x 20mg tablet = 40mg dose) OXYCODONE HCL PO Take 5 mg by mouth 0 Active every 4 hours as needed Acetaminophen (TYLENOL Take 1,300 mg by 0 Active PO) mouth every 8 hours as needed DIAZEPAM PO Take 10 mg by 0 Acti ve mouth 3 times daily as needed for anxiety ondansetron Take 4 mg by mouth 0 Active (ZOFRAN-ODT) 4 MG ODT every 8 hours as tab needed for nausea BENZONATATE PO Take 200 mg by 0 Active mouth 3 times daily as needed for cough nicotine (NICOTROL) 10 Inhale 6-16 0 Active MG Inhaler Cartridges into the lungs daily as needed for smoking cessation estradiol Place 1 patch onto 0 A ctive (VIVELLE-DOT) 0.05 the skin twice a MG/24HR BIW patch week Tuesday and Fridays hydrocortisone 2.5 % Apply topically 4 0 Active cream times daily as needed ZONISAMIDE PO Take 300 mg by 0 A ctive mouth 2 times daily (3 x 100mg tablet = 300mg dose) CYANOCOBALAMIN PO Take 5,000 mcg by 0 Active mouth daily FOLIC ACID PO Take 800 mcg by 0 Active mouth daily budesonide-formoterol Inhale 2 puffs 0 Active (SYMBICORT) 160-4.5 into the lungs 2 MCG/ACT Inhaler times daily medical cannabis Take 1 capsule by 0 Active (Patient's own supply. mouth daily (This Not a prescription) is NOT a prescription, and does not certify that the patient has a qualifying medical condition for medical cannabis. The purpose of this order is to document that the patient reports taking medical cannabis.) albuterol (PROAIR Inhale 2-4 puffs 0 Active HFA/PROVENTIL into the lungs HFA/VENTOLIN HFA) 108 every 4 hours as (90 BASE) MCG/ACT needed for Inhaler shortness of breath / dyspnea or wheezing naloxone (NARCAN) Rupert 4 mg into 0 Active nasal spray one nostril alternating nostrils daily as needed for opioid reversal every 2-3 minutes until assistance arrives VALACYCLOVIR HCL PO Take 500 mg by 0 Active mouth daily as needed DIPHENHYDRAMINE HCL PO Take 25-50 mg by 0 Active mouth 4 times daily as needed (allergies) albuterol (2.5 MG/3ML) Take 1 vial by 0 Active 0.083% neb solution nebulization every 6 hours as needed for shortness of breath / dyspnea or wheezing BIOTIN PO Take 5,000 mcg by 0 Ac tive mouth daily VITAMIN D, Take 10,000 Units 0 A ctive CHOLECALCIFEROL, PO by mouth daily (Takes 2 x 5000 unit tablet = 92617 unit dose) Esomeprazole Magnesium Take 40 mg by 0 Active (NEXIUM PO) mouth 2 times daily (before meals) Pregabalin (LYRICA PO) Take 450 mg by 0 Active mouth every evening (Takes 3 x 150mg = 450mg dose) CETIRIZINE HCL PO Take 10 mg by 0 Active mouth daily METHOCARBAMOL PO Take 500 mg by 0 Active mouth 4 times daily as needed for muscle spasms tiotropium (SPIRIVA) Inhale 18 mcg into 0 Active 18 MCG capsule the lungs 2 times daily Polyethylene Glycol Take 1 Dose by 0 Active 3350 (MIRALAX PO) mouth daily as needed lidocaine (XYLOCAINE) Apply topically 2 0 Active 5 % ointment times daily as needed for moderate pain Nutritional Take 1 tablet by 0 A ctive Supplements (DHEA PO) mouth daily Lurasidone HCl (LATUDA Take 60 mg by 0 Active PO) mouth daily oxyCODONE IR Take 1 tablet (5 25 tablet 0 10/14/2017 Active (ROXICODONE) 5 MG mg) by mouth every tabletIndications: 4 hours as needed Stress incontinence for moderate to severe pain estradiol (ESTRACE Pea size on a 42.5 g 0 10/14/2017 Active VAGINAL) 0.1 MG/GM finger to the creamIndications: vagina OHS Stress incontinence HYDROcodone-acetaminop Take 1 tablet by 25 tablet 0 10/14/2017 Active hen (NORCO) 5-325 MG mouth every 6 per tabletIndications: hours as needed Stress incontinence for moderate to severe pain Social History Tobacco Use Types Packs/Day Years Used Date Current Every Day Smoker 0.5 Smokeless Tobacco: Never Used Alcohol Use Standard Drinks/Week Comments No 0 (1 standard drink = 0.6 oz pure alcoho l) Sex Assigned at Date Recorded Not on file Last Filed Vital Signs Vital Sign Reading Time Taken Comments Blood Pressure 104/64 05/14/2021 3:31 PM CDT Pulse 76 05/14/2021 3:31 PM CDT Temperature 36.7 ??C (98.1 ??F) 05/14/2021 3:31 PM CDT Respiratory Rate 16 10/14/2017 4:28 PM 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 Oxygen Saturation 98% 10/14/2017 4:28 PM 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 Inhaled Oxygen Concentration - - Weight 74.8 kg (165 lb) 05/14/2021 3:31 PM CDT Height 152.4 cm (5') 05/14/2021 3:31 PM CDT Body Mass Index 32.22 05/14/2021 3:31 PM CDT Plan of Treatment Health Maintenance Due Date Last Done Comments ADVANCE CARE PLANNING 1965 ANNUAL REVIEW OF HM ORDERS 1965 CT COLONOGRAPHY 1965 FIT-DNA (Cologuard) 1965 FIT 1965 FLEX SIG 1965 MAMMO SCREENING 1965 COVID-19 Vaccine (#1) 1965 Pneumococcal Vaccine: 1969 Pediatrics (0 to 5 Years) and At-Risk Patients (6 to 64 Years) (1 - PCV) COLONOSCOPY 1973 COLORECTAL CANCER SCREENING 1973 HIV SCREENING 1978 HEPATITIS C SCREENING 1981 MEDICARE ANNUAL WELLNESS 1981 VISIT PAP 1984 LIPID 2008 LUNG CANCER SCREENING 2013 ZOSTER IMMUNIZATION (1 of 2013 2) PHQ-2 (once per calendar 11/28/2021 year) INFLUENZA VACCINE (#1) 2022 08/29/2017, 08/23/2016, 09/01/2015, Additional history exists DTAP/TDAP/TD IMMUNIZATION 08/13/2024 08/13/2014 (2 - Td or Tdap) HEPATITIS B IMMUNIZATION Aged Out No long er eligible based on patient 's age to complete this topic IPV IMMUNIZATION Aged Out No longer eligi ble based on patient 's age to complete this topic MENINGITIS IMMUNIZATION Aged Out No longe r eligible based on patient 's age to complete this topic Medical Devices Implanted Type Area Dance Instructor Device Shelf Model / Identifier Expiration Serial / Date Lot Device Tvt Obturator Laser [id number] Other N/A: [employer] 04/27/2018 [id number] / Implanted: Qty: 1 on 10/14/2017 by Rain Herring MD at [facility]- / [id number] Insurance Payer Benefit Plan / Subscriber ID Effective Dates Phone Addre ss Type Group MEDICARE MEDICARE [id number] 2012-Ariana [phone] ATTN [facility] Medicare nt 0 [address] [place] [address] MEDICA MEDICA ACCESS [id number] 2016-Dirk [phone] [address] [address] HMO ABILITY MA t [address] [place] [address] 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
--- OUTSIDE RECORDS SUMMARY | 2022-07-06 14:58 | XMS_ITS | Encounter Summary ---
:1965 Author Organization [facility] Address [address] [place] [address] Care Team Providers Name Role Phone [facility], [facility] Primary Care Provide r Encounter Details Date Type Department Care Team Description [facility] ProviderAlea Social History Tobacco [...] on filedocumented in this encounter Care Teams Survey Supervisor Relationship Specialty Start Date End Date [facility] PCP - General 06/03/17[address] [place] [address] documented as of this encounter
--- OUTSIDE RECORDS SUMMARY | 2022-07-06 14:58 | XMS_ITS | Encounter Summary ---
:1965 Author Organization [facility] Address [facility] [place] [address] Care Team Providers Name Role Phone Clinic, [facility] Primary Care Provide r Reason for Visit Reason Comments Back Pain Neck Pain Encounter Details Date Type Department Care Team Description 06/03/2017 Emergency [facility] Heggestad, Zoey Acute mi dline low back pain, with sciatica presence unspecified; [facility] Emergency Dep phuong Flowers PA-C Chronic neck pain [address] [facility] [place], [place] [address] [address] [facility] [phone] [place], [place] [address] (Wo rk) Social History Tobacco Use Types Packs/Day Years Used Date Current Every Day Smoker 0.5 Alcohol Use Standard Drinks/Week Comments No 0 (1 standard drink = 0.6 oz pure alcoho l) Sex Assigned at Date Recorded Not on file documented as of this encounter Last Filed Vital Signs Vital Sign Reading Time Taken Comments Blood Pressure 105/74 06/03/2017 3:00 PM CDT Pulse 111 06/03/2017 1:10 PM CDT crying Temperature 36.9 ??C (98.4 ??F) 06/03/2017 1:10 PM CDT Respiratory Rate 24 06/03/2017 1:10 PM CDT Oxygen Saturation 98% 06/03/2017 3:00 PM CDT Inhaled Oxygen Concentration - - Weight 66.2 kg (146 lb) 06/03/2017 1:10 PM CDT Height - - Body Mass Index 28.51 05/17/2017 7:26 PM CDT documented in this encounter Medications at Time of Discharge Medication Sig Dispensed Refills Start Date End Date Acetaminophen (TYLENOL PO) Take 1,300 mg by 0 mouth every 8 hours as needed Furosemide (LASIX PO) Take 40 mg by mouth 0 daily (Takes 2 x 20mg tablet = 40mg dose) LamoTRIgine (LAMICTAL PO) Take 200 mg by 0 mouth 2 times daily OXYCODONE HCL PO Take 5 mg by mouth 0 every 4 hours as needed potassium chloride rebekah er Take 20 mEq by 0 (K-DUR) mouth 2 times daily (Takes 2 x 10meq tablet = 20meq dose) Pregabalin (LYRICA PO) Take 150 mg by 0 mouth daily Omeprazole (PRILOSEC PO) 0 10/14/2017 documented as of this encounter Progress Notes Azul Garza LSW - 06/03/2017 3:59 PM CDT SWS: SW met with pt per her request. Pt states that she wants to make sure that she is receiving the bestcare possible. Pt reports that she has a pain contract and does not feel that she received adequate care at the [facility] hospitals that she has been too. Pt reports that she left [facility] yesterday after they did not address her issues. Pt states that she would like something to take her painaway and upset that has not been receiving adequate pain control. SW explained that this ghost writer could not provide pt with pain meds and that the MD would decided if and how much pain meds the pt shouldreceive. Pt upset by this and started to get angry and requesting to leave. Pt son in room and states that this is not good for his mothers heart and pt started getting dressed. Son states that they have not received an update from RN or MD. SW offered to speak with MD and see if they could provide anupdate. Pt not interested in this at this time. SW spoke with MD and during conversation pt was seenleaving the ED with son. documented in this encounter ED Notes Tejal Evans RN - 06/03/2017 4:02 PM CDT Patient is not in the room. Tejal Evans RN - 06/03/2017 3:45 PM CDT Patient is not in the room, presumed to have eloped. Tejal Evans RN - 06/03/2017 3:41 PM CDT steel worker is talking with patient per patient request. Tejal Evans RN - 06/03/2017 2:55 PM CDT Box lunch and Zofran PO. Patient reports she has had no change in pain after Oxycodone PO. Provider notified. Tejal Evans RN - 06/03/2017 2:45 PM CDT Patient reports nausea and hunger after PO medications. Provider Notified. Tejal Evans RN - 06/03/2017 1:08 PM CDT Patient was putting a table together two days ago. Complains of neck, back, and pain in her sternum.She was seen at [facility] and evaluated for neck pain but left before the full exam was completed as she feels she was not being treated fully. She states he has a history of multiple neck surgeries. ABCs intact. Patient is alert and oriented x3. Zoey López PA-C - 06/03/2017 1:01 PM CDT History Chief Complaint: Back Pain and Neck Pain HPI Angie Mosquera is a 52 year old female with a history of chronic pain, osteoporosis, and fibromyalgia who presents to the emergency department today accompanied by her son for evaluation of back and neck pain. The patient reports that she has a history of multiple neck and abdominal surgeries and that she is being treated by a pain clinic to manage her chronic pain from these surgeries. The patientstates that she was putting together a table two days ago when she tried to pick it up and it fell onto her, pushing her backwards and hitting her in the chest. She states that she hurt her neck, back,and sternum in the fall. She was seen in another emergency room but reports that she left before theexam was completed because she felt that she was not being treated fully. She notes that she has twoscrews lose in her neck from a previous surgery and that she is seeing doctors at [facility] for evaluation. She reports that most of her pain is in her neck, both front and back, and that she has lost her voice and is having difficulty swallowing. She also notes pain near her lower back. She states that she can only walk when hunched over and that she has severe pain in her back and sternum when urinating. Of note, she states that she broke her sternum 6 months ago when she ran into [employer]. She states that she called her pain management center, [facility], and that they referred her here today for treatment of her pain and injuries sustained when the table fell on her. Allergies: Acyclovir Adhesive Tape Amoxicillin Ceclor [Cefaclor] Gabapentin Tegaderm Transparent Dressing (Informational Only) Medications: Oxycodone Tylenol Lyrica Lamictal Prilosec K-dur Lasix Past Medical History: Fibromyalgia Osteoporosis Restless leg Past Surgical History: Abdomen surgery Back surgery Cholecystectomy Gynecologic surgery Orthopedic surgery Family History: History reviewed. No pertinent family history. Social History: Smoking Status: Current Every Day Smoker Alcohol Use: Negative Marital Status: Single [1] Review of Systems HENT: Positive for trouble swallowing. Positive for pain in face. Genitourinary: Positive for difficulty urinating. Musculoskeletal: Positive for back pain and neck pain. Positive for pain in hand, sternum, tailbone, and toe. All other systems reviewed and are negative. Physical Exam Vitals: Patient Vitals for the past 24 hrs: BP Temp Temp src Pulse Resp SpO2 Weight 06/03/17 1500 105/74 - - - - 98 % - 06/03/17 1445 116/74 - - - - 98 % - 06/03/17 1430 - - - - - 97 % - 06/03/17 1429 102/68 - - - - - - 06/03/17 1310 (!) 135/99 98.4 ??F (36.9 ??C) Oral 111 24 96 % 66.2 kg (146 lb) Physical Exam Constitutional: Alert, attentive. Patient is curled up in a ball on the bed upon initial evaluation HENT: Nose: Nose normal. Mouth/Throat: Oropharynx is clear, mucous membranes are moist Eyes: EOM are normal. Pupils are equal, round, and reactive to light. CV: Regular rate and rhythm Chest: Effort normal and breath sounds normal. GI: No distension. There is no tenderness MSK: There is tenderness to the C spine and L spine on minimal palpation. Neurological: GCS 15; A/Ox3; 5/5 strength throughout the upper and lower extremities; sensation intact to light touch throughout the upper and lower extremities; normal gait Skin: Skin is warm and dry. Emergency Department Course Imaging: Radiology findings were communicated with the patient who voiced understanding of the findings. Chest XR, PA & LAT The heart size and pulmonary vasculature are normal. The lungs are clear. No evidence of pneumothorax. Healed right-sided rib fractures. Postoperative changes in the cervical spine. There has been resection of the left distal clavicle. A sternal fracture is not definitely seen, however, this would be better evaluated by CT if clinically indicated. COTY WANG MD Reading per radiology Cervical spine CT w/o contrast 1. No evidence of fracture or traumatic malalignment of the cervical spine. 2. Stable findings from extensive cervical fusion as discussed above. The surgical hardware appears intact. 3. Unchanged lucency surrounding the posterior T1 pedicle screws as well as the anterior C6 and C7 vertebral body screws suggestive of possible loosening. MARLEN MORALES MD Reading per radiology Lumbar spine CT w/o contrast Degenerative changes with no fracture or other evidence of recent injury. VILMA SAMAYOA MD Reading per radiology Interventions: 1401 Roxicodone 10 mg PO 1433 Robaxin 1000 mg PO 1456 Zofran 4 mg PO Emergency Department Course: Nursing notes and vitals reviewed. I performed an exam of the patient as documented above. The patient was sent for a Chest XR, PA & LAT, Cervical spine CT w/o contrast, and Lumbar spine CT w/o contrast while in the emergency department, results above. I discussed the treatment plan with the [...] personally reviewed the imaging results with the patient and answered all related questions prior to discharge. Impression & Plan Medical Decision Making: Angie Mosquera is a 52 year old female with a history of chronic pain who sees [facility] for her prescription for oxycodone. She is here today with her son because a couple of days ago she lifted a table and it fell on her. She fell backwards, landing on her back. She also states that the table landed on her sternum which she has fractured in the past. Since then she has been having pain in her C-spine and lumbar spine as well as her sternum. Her son tells me that they went to [place] emergency room and they told the nurse that they went to [facility] emergency room as well in the past few days but nobody did anything or me. Here, the patient notes that hardware in her C-spine has loosened and she is scheduled to see [facility] physician to possibly look into surgery for this. She has a history of several C-spine surgeries in the past. On exam, she is jumping withminimal palpation of her body. She states that it hurts most in her C-spine and L-spine, therefore Idid do pictures of these areas. The CTs show no acute abnormality. I also did an x- ray to look at the sternum, which shows no obvious fracture although they noted that a CT would look at the sternum for fracture better. During the work-up, the nurse came and told me several times that the patient was asking for pain medication several times. I had previously told the patient and her son that per our [facility] pain policy she could have a dose of pain medication here orally but we were not doing IM or IV and she would not get a prescription to go home with. During the work-up, I was unaware that the patient requested to see social work and social work came down to see them and came to talk to me. The social work msw states that the patient wanted to complain about our care to her but she had no complaints of social issues at home. steel worker referred her back to me. I was in the middle of several patients and a procedure and had not had a chance to get back into the room before a nurse notified me that the patient had eloped with her son. Given that there are no abnormalities in her imaging studies, I feel that this is acceptable that she left without further care. I did also speak to a P.A. implementation director for [facility], Grey Samayoa, who agreed with the plan with this negative workup tonot give her further narcotics here or send her home with a new prescription. He states that she needs to call [facility], who is her pain medication provider if she wants a new change of medication, which she knows. Again, I did not have a chance to explain this to the patient before she eloped. Diagnosis: ICD-10-CM 1. Acute midline low back pain, with sciatica presence unspecified M54.5 2. Chronic neck pain M54.2 G89.29 Disposition: The patient is discharged to home. Scribe Disclosure: I, Michael Kate, am serving as a scribe at 1:45 PM on 06/03/2017 to document services personally performed by Zoey López PA-C, based on my observations and the provider's statements to me. [facility] EMERGENCY [facility]PARTMENT Zoey López PA-C 06/03/17 1738 documented in this encounter Plan of Treatment Not on filedocumented as of this encounter Procedures Procedure Name Priority Date/Time Associated Diagnosis Comme nts XR CHEST 2 VW STAT 06/03/2017 3:19 PM Results for this CDT procedure are i n the results section. CT CERVICAL SPINE STAT 06/03/2017 2:33 PM Resu lts for this W/O CONTRAST CDT procedure are i n the results section. CT LUMBAR SPINE W/O STAT 06/03/2017 2:32 PM Re sults for this CONTRAST CDT procedure are i n the results section. documented in this encounter Results Chest XR, PA & LAT (06/03/2017 3:19 PM CDT) Anatomical Region Laterality Modality Chest Digital Radiography Specimen (Source) Anatomical Location Collection Method / Collectio n Time Received Time / Laterality Volume Impressions 06/03/2017 3:41 PM CDT IMPRESSION: The heart size and pulmonary vasculature are normal. The lungs are clear. No evidence of pneumoth orax. Healed right-sided rib fractures. Postoperative changes in the cervical spine. There has been resection of the left distal clavicle. A sternal fracture is not definitely seen, however, this would be better evaluated by CT if clinically indicated. COTY WANG MD Narrative 06/03/2017 3:41 PM CDT CHEST TWO VIEWS ?? 06/03/2017 3:19 PM HISTORY: Sternal pain after table fell o n her, history of sternal fracture. COMPARISON: 07/18/2016. Procedure Note Coty Wang MD - 06/03/2017F ormatting of this note might be different from the original. CHEST TWO VIEWS 06/03/2017 3:19 PM HISTORY: Sternal pain after table fell o n her, history of sternal fracture. COMPARISON: 07/18/2016. IMPRESSION: The heart size and pulmonary vasculature are normal. The lungs are clear. No evidence of pneumoth orax. Healed right-sided rib fractures. Postoperative changes in the cervical spine. There has been resection of the left distal clavicle. A sternal fracture is not definitely seen, however, this would be better evaluated by CT if clinically indicated. COTY WANG MD Zoey López PA-C [facility] Cervical spine CT w/o contrast (06/03/2017 2:33 PM CDT) Anatomical Region Laterality Modality Spine, SUBRAD CT NEURO, SUBRAD CT NEURO, UMP CT SPINE Computed Tomography Specimen (Source) Anatomical Location Collection Method / Collectio n Time Received Time / Laterality Volume Impressions 06/03/2017 3:13 PM CDT IMPRESSION: 1. No evidence of fracture or traumatic malalignment of the cervical spine. 2. Stable findings from extensive cervic al fusion as discussed above. The surgical hardware appears intact. 3. Unchanged lucency surrounding the pos terior T1 pedicle screws as well as the anterior C6 and C7 vertebral body screws suggestive of possible loosening. MARLEN MORALES MD Narrative 06/03/2017 3:[address] CERVICAL SPINE WITHOUT CONTRAST ?? 06/03/2017 2:33 PM HISTORY: Chronic neck pain from fusions. Fell 2 days ago. Worsening pain. TECHNIQUE: Axial images of the cervical spine were obtained without intravenous contrast. Multiplanar reform ations were performed. Radiation dose for this scan was reduced using automated exposure control, adjustment of the mA and/or kV according to patient size, or iterative reconstruction technique. COMPARISON: Cervical spine CT 05/17/2017. FINDINGS: No evidence of fracture identi fied. No prevertebral soft tissue swelling. Persistent extensive fu neisha with posterior hardware from C3 to T1 bilaterally and anterior h ardware from C6 to T1. Hardware appears intact without evidence of fracture. Marked lucency surrounding bilateral T1 pedicle screws is unchanged. Mild lucency surrounding the anterior screws at C6 an d C7 is again noted. The left T1 screw continues to traverse the super ior aspect of the left T1-T2 neural foramen. Persistent fusion across the posterior f acets and several anterior vertebral bodies which is unchanged. Unc hanged minimal grade 1 anterolisthesis of C7 on T1. No signific ant spinal canal or neural foraminal narrowing. Procedure Note Marlen Morales MD - 06/03/2017 CT CERVICAL SPINE WITHOUT CONTRAST 017 2:33 PM HISTORY: Chronic neck pain from fusions. Fell 2 days ago. Worsening pain. TECHNIQUE: Axial images of the cervical spine were obtained without intravenous contrast. Multiplanar reform ations were performed. Radiation dose for this scan was reduced using automated exposure control, adjustment of the mA and/or kV according to patient size, or iterative reconstruction technique. COMPARISON: Cervical spine CT 05/17/2017. FINDINGS: No evidence of fracture identi fied. No prevertebral soft tissue swelling. Persistent extensive fu neisha with posterior hardware from C3 to T1 bilaterally and anterior h ardware from C6 to T1. Hardware appears intact without evidence of fracture. Marked lucency surrounding bilateral T1 pedicle screws is unchanged. Mild lucency surrounding the anterior screws at C6 an d C7 is again noted. The left T1 screw continues to traverse the super ior aspect of the left T1-T2 neural foramen. Persistent fusion across the posterior f acets and several anterior vertebral bodies which is unchanged. Unc hanged minimal grade 1 anterolisthesis of C7 on T1. No signific ant spinal canal or neural foraminal narrowing. IMPRESSION: 1. No evidence of fracture or traumatic malalignment of the cervical spine. 2. Stable findings from extensive cervic al fusion as discussed above. The surgical hardware appears intact. 3. Unchanged lucency surrounding the pos terior T1 pedicle screws as well as the anterior C6 and C7 vertebral body screws suggestive of possible loosening. MARLEN MORALES MD Zoey López PA-C IMG CT ORDERABLES Lumbar spine CT w/o contrast (06/03/2017 2:32 PM CDT) Anatomical Region Laterality Modality Spine, SUBRAD CT MSK, [facility] CT SPINE Compu mary Tomography Specimen (Source) Anatomical Location Collection Method / Collectio n Time Received Time / Laterality Volume Impressions 06/03/2017 2:59 PM CDT IMPRESSION: Degenerative changes with no fracture or other evidence of recent injury. VILMA SAMAYOA MD Narrative 06/03/2017 2:[address] LUMBAR SPINE WITHOUT CONTRAST ?? 06/03/2017 2:32 PM HISTORY: Pain after falling two days ago . COMPARISON: A CT on 04/15/2009. TECHNIQUE: 0.2 cm helical imaging was pe rformed from the superior aspect of the T11 vertebral body to the mid to lower sacrum. Sagittal and coronal reformatting was performed. Radiation dose for this scan was reduced using automated exposure con trol, adjustment of the mA and/or kV according to patient size, or iterative reconstruction technique. FINDINGS: Again demonstrated are five nahomy mbar type vertebral bodies. Vertebral body alignment is normal. Ther e is solid interbody fusion at L4-L5 and L5-S1. This is similar to the previous study. No fracture or osseous lesion is demonstrated. There jerry s been development of marked disc height loss at L2-L3. There is mild disc height loss elsewhere. There is mild diffuse disc bulging throu ghout the spine with no disc herniation seen. There has been developm ent of moderate left and mild to moderate right neural foraminal steno sis at L2-L3. No other high-grade stenosis is demonstrated. Procedure Note Vilma Samayoa MD - 06/03/2017Fo rmatting of this note might be different from the original. CT LUMBAR SPINE WITHOUT CONTRAST 7 2:32 PM HISTORY: Pain after falling two days ago . COMPARISON: A CT on 04/15/2009. TECHNIQUE: 0.2 cm helical imaging was pe rformed from the superior aspect of the T11 vertebral body to the mid to lower sacrum. Sagittal and coronal reformatting was performed. Radiation dose for this scan was reduced using automated exposure con trol, adjustment of the mA and/or kV according to patient size, or iterative reconstruction technique. FINDINGS: Again demonstrated are five nahomy mbar type vertebral bodies. Vertebral body alignment is normal. Ther e is solid interbody fusion at L4-L5 and L5-S1. This is similar to the previous study. No fracture or osseous lesion is demonstrated. There jerry s been development of marked disc height loss at L2-L3. There is mild disc height loss elsewhere. There is mild diffuse disc bulging throu ghout the spine with no disc herniation seen. There has been developm ent of moderate left and mild to moderate right neural foraminal steno sis at L2-L3. No other high-grade stenosis is demonstrated. IMPRESSION: Degenerative changes with no fracture or other evidence of recent injury. VILMA SAMAYOA MD Zoey López PA-C IMG CT ORDERABLES documented in this encounter Visit Diagnoses Diagnosis Acute midline low back pain, with sciati ca presence unspecified Chronic neck pain Cervicalgia documented in this encounter Administered Medications Inactive Administered Medications - up to 3 most recent administrations Medication Order MAR Action Action Date Dose Rate Site methocarbamol (ROBAXIN) tablet Given 06/03/2017 2:33 PM CDT 1,00 0 mg 1,000 mg 1,000 mg, Oral, ONCE, On Tue06/03/17 at 1406, For 1 dose ondansetron (ZOFRAN-ODT) 4 MG ODT tab Starting on Tue06/03/17 at 1452, For 1 do Nathan dean Jennifer : cabinet override ondansetron (ZOFRAN-ODT) ODT tab 4 mg Given 06/03/2017 2:56 PM CDT 4 mg 4 mg, Oral, ONCE, On Tue06/03/17 at 1453, For 1 dose, With dry hands, peel back foil backing and gently remove tablet; do not push oral disintegrating tablet through foil backing; administer immediately on tongue and oral disintegrating tablet dissolves in seconds; then swallow with saliva; liquid not required. oxyCODONE (ROXICODONE) IR tablet 10 mg Given 06/03/2017 2:01 PM CDT 10 mg 10 mg, Oral, ONCE, On Tue06/03/17 at 1353, For 1 dose documented in this encounter Active and Recently Administered Medications Times are shown in CDT. Scheduled Medication Order 06/01/2017 06/02/2017 06/03/2017 methocarbamol (ROBAXIN) tablet 1,000 mg (COMPLETED) 1433 (Given - Provider: Kristie Rojas RN) 1,000 mg, Oral, ONCE, Tue06/03/17 at 1406, For 1 dose ondansetron (ZOFRAN-ODT) ODT tab 4 mg (COMPLETED) 1456 (Given - Provider: Tejal Evans RN) 4 mg, Oral, ONCE, Tue06/03/17 at 1453, Fo r 1 dose, With dry hands, peel back foil backing and gently remove tablet; do not push oral disintegrating tablet through foil backing; administer immediately on tongue and oral disintegrating tablet di ssolves in seconds; then swallow with saliva; liquid not required. oxyCODONE (ROXICODONE) IR tablet 10 mg (COMPLETED) 1401 (Given - Provider: Tejal Evans RN) 10 mg, Oral, ONCE, Tue06/03/17 at 1353, For 1 dose documented in this encounter Care Teams Social And Human Services Assistant Relationship Specialty Start Date End Date [facility] PCP - General 06/03/171999 [place] [address] documented as of this encounter
--- OUTSIDE RECORDS SUMMARY | 2022-07-06 14:58 | XMS_ITS | Encounter Summary ---
:1965 Author Organization [place] Address [facility] [place] [address] Care Team Providers Name Role Phone [facility] Primary Care Provide r Mor Bautista MD Unavailable Encounter Details Date Type Department Care Team Description 05/01/2021 Records - [facility] CONVERSION Provider, Alea howard Social History Tobacco Use Types Packs/Day Years [...] Name Priority Date/Time Associated Diagnosis Comme nts LAB RESULT - HIM SCAN 05/18/2021 documented in this encounter Results LAB RESULT - HIM SCAN (05/18/2021) Narrative This result has an attachment that is no t available. Historical Provider NON-BEAKER LAB TESTING documented in this encounter Visit Diagnoses Not on filedocumented in this encounter Care Teams Atmospheric Scientist Relationship Specialty Start Date End Date [facility] PCP - General 06/03/17 [facility] [address] [place] [address] Mor Bautista MD Assigned Infectious Disease 06/12/21 [address] Provider [address] [place] [address] documented as of this encounter
--- OUTSIDE RECORDS SUMMARY | 2022-07-06 14:58 | XMS_ITS | Encounter Summary ---
:1965 Author Organization [place] Address [facility] [place] [address] Care Team Providers Name Role Phone [facility], [facility] Primary Care Provide r Reason for Visit Reason Comments Referral Other ID Encounter Details Date Type Department Care Team Description 05/11/2021 Communication - [facility] Provider, Jameel howard; [facility]ID[facility] Specialties Patient Access [address] [place] [id number] Social History Tobacco Use Types Packs/Day Years Used Date Current Every Day Smoker 0.5 Smokeless Tobacco: Never Used Alcohol Use Standard Drinks/Week Comments No 0 (1 standard drink = 0.6 oz pure alcoho l) Sex Assigned at Date Recorded Not on file documented as of this encounter Miscellaneous Notes Telephone Encounter - Historical Provider - 05/13/2021 11:10 AM CDT Date: 05/14/2021 Status: [facility] Time: 3:20 PM Length: 40 Visit Type: CONSULT [[id number]] Copay: $0.00 Provider: Mor Bautista MD Telephone Encounter - Historical Provider - 05/13/2021 8:45 AM CDT 05/13 - lvm x 2 Telephone Encounter - Historical Provider - 05/12/2021 9:21 AM CDT 05/12 - lvm x 1 to schedule in-clinic consultation with Dr Bautista, 05/14 Telephone Encounter - Historical Provider - 05/12/2021 8:02 AM CDT Records received.... 05/11/2021 3:59pm inside ID consult Telephone Encounter - Historical Provider - 05/11/2021 3:43 PM CDT 05/11 - called referring medical records x 1 they will send over records Telephone Encounter - Historical Provider - 05/11/2021 3:36 PM CDT ID TEAM REFERRAL ONLY received??? 05/11/2021 12:05pm inside ID consult [facility], , Referring: Dr David Cohn, DX: status post shoulder replacement, left Order comments: Asking for HALI, this week. documented in this encounter Plan of Treatment Not on filedocumented as of this encounter Visit Diagnoses Not on filedocumented in this encounter Care Teams Foreign Exchange Services Manager Relationship Specialty Start Date End Date Clinic, [facility] PCP - General 06/03/[address] [place] [address] documented as of this encounter
--- OUTSIDE RECORDS SUMMARY | 2022-07-06 14:58 | XMS_ITS | Encounter Summary ---
:1965 Author Organization [place] Address [facility] [place] [address] Care Team Providers Name Role Phone Clinic, [facility] Primary Care Provide r Reason for Visit Reason Comments Consult pt here with her neighbor Arin calderon, Encounter Details Date Type Department Care Team Description 05/14/2021 Office Visit - [facility] Mor Bautista Acute he matogenous [facility] Sheldon Patel MD osteomyelitis of right [address] [place] [address] [address] [facility] [address] [phone] [place], [place] [phone] [id number] Social History Tobacco Use Types Packs/Day Years [...] ??F) 05/14/2021 3:31 PM CDT Respiratory Rate - - Oxygen Saturation - - Inhaled Oxygen Concentration - - Weight 74.8 kg (165 lb) 05/14/2021 3:31 PM CDT Height 152.4 cm (5') 05/14/2021 3:31 PM CDT Body Mass Index 32.22 05/14/2021 3:31 PM CDT documented in this encounter Progress Notes Mor Bautista MD - 05/14/2021 3:20 PM CDT Infectious Disease Consultation: Requesting :Lalit Reason for consult:MRSJoe shoulder infection HISTORY: Hospital Course Angie Mosquera is a 55 y.o. female with a history of bipolar II disorder, chronic opioid use, chronic anemia, h/o gastric bypass who was admitted 03/25/2021 with septic left shoulder. She was admittedfrom home with suspected septic left shoulder following previous total shoulder arthroplasty in September 2020. Per H&P: Angie Mosquera is a 55 y.o. female admitted from home to inpatient Medical- Surgical Unit with suspected septic left shoulder following previous total shoulder arthroplasty and revision in September 2020. I have reviewed the patient's medical history in detail and updated the computerized patient record. Angie has a history of chronic neck and back pain, opioid dependence with oxycodone, previous bariatric surgery, bipolar disorder, and asthma. She had revision of her left total shoulder arthroplasty to a reverse arthroplasty in September 2020. She has experienced persistent left shoulder pain since the surgery, evaluated about 1 week ago with joint aspiration that grew COAG- NEGATIVE STAPH, CRP 3.[address] Cohn requested direct admission this evening with plan for washout of the left shoulder in the morning. ?? She is using oxycodone 10 mg 4 to 5 times daily and Dilaudid for breakthrough pain of the left shoulder. She denies fever or chills. She has an implanted stimulator for treatment of her chronic back pain. She denies obstructive sleep apnea, bleeding disorder, and deep vein thrombosis or pulmonary embolism. Hospital Course: Patient was taken to OR on 03/[address] Cohn for I&D with revision of humeral tray. She did wellpostoperatively, but did struggle some with pain control. She initially was treated with clindamycindue to multiple drug allergies, but this was switched to vancomycin after sensitivities showed resistance to clindamycin. She will continue on vancomycin for 6 weeks. She worked with therapy and was ca ared for discharge home. She had PICC line placed in right upper arm for continued IV vancomycin. She had some confusion last night, but this has resolved with decrease in oxycodone to every 6 hours asneeded. She will discharge tonight after vancomycin dose with plan for infusion nurse to get there tomorrow morning for teaching. The pt has finished her IV vanco and has many allergies. The isolate is MRSE, S to doxy. She is not allergic to doxy. Dr. Cohn would like her to be on some version of an oral suppressive. Pertinent past history, past infectious disease history: Reviewed in the notes from [facility] Medications: Reviewed prior to admission meds as applicable in chart review. Current meds are reviewed in the EMR listed JAN. ANTIBIOTICS: Current:none Prior: Allergy to: SH/FH and travel history(if applicable to consult): Smoker, fan of tattoos FH NC to this illness REVIEW OF SYSTEMS: All other systems negative EXAMINATION: Vitals: 05/14/21 1531 BP: 104/64 Pulse: 76 Temp: 98.1 ??F (36.7 ??C) Alert, awake Vitals tabulated above, reviewed HEENT:nl Neck supple without lymphadenopathy Sclera clear CARDIOVASCULAR regular rate and rhythm, no murmur Lungs CLEAR TO AUSCULTATION Abdomen soft, NT/ND, absent HEPATOSPLENOMEGALY Skin normal skin is pretty much covered in tattoo, face tattoos also Joints normal Neurologic exam non focal Wound: NA CLINICAL DATABASE FOR---LAB/MICRO/CULTURES/IMAGING STUDIES: CRP was under 1 at end of rx and ESR was only 7 Ref Range CULTURE RESULT (A) ?? CULTURE 1+ Staphylococcus coagulase negative ?? GRAM STAIN? 1+ PMNs ?? GRAM STAIN? No organisms seen ?? GRAM STAIN? Gram stain performed by [place], [place] ?? Specimen Collected on Tissue - Left Shoulder 03/26/2021 10:00 AM Organism Antibiotic Method Susceptibility Staphylococcus coagulase negative OXACILLIN ?? <=0.25: S Comment: Oxacillin susceptible should not be interpreted as penicillin or amoxicillin susceptible. ERYTHROMYCIN ?? >=8: R CLINDAMYCIN ?? >=8: R TETRACYCLINE ?? >=16: R CEFAZOLIN ?? S VANCOMYCIN ?? <=0.5: S LEVOFLOXACIN ?? >=8: R TRIMETHOPRIM/SULF ?? IMPRESSION: ALE shoulder infection post revision wih need for oral suppression PLAN: Doxy 100mg daily I am not completely sure how long to suppress, Dr. Cohn could assist me with this duration if possible. My cell is [phone]. I wrote for 90 days and warned pt about sunburn risk. She has hx of skin cancer. 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
--- OUTSIDE RECORDS SUMMARY | 2022-07-06 14:58 | XMS_ITS | Encounter Summary ---
:1965 Author Organization [place] Address [address] [place] [address] Care Team Providers Name Role Phone Clinic, [facility] Primary Care Provide r Encounter Details Date Type Department Care Team Description 03/20/2021 Records - [facility], [facility] [address] [place] [address] [phone] Social History Tobacco Use Types Packs/Day Years [...] Procedure Name Priority Date/Time Associated Comments Diagnosis AEROBIC BACTERIAL Routine 03/20/2021 6:00 AM Resu lts for this CULTURE ROUTINE CDT procedure ar e in the results section. CELL COUNT WITH Routine 03/20/2021 6:00 AM Result s for this DIFFERENTIAL FLUID CDT procedure are in the results section. ANAEROBIC BACTERIAL Routine 03/20/2021 6:00 AM Re sults for this CULTURE ROUTINE CDT procedure ar e in the results section. documented in this encounter Results (ABNORMAL) Body fluid, unsp Aerobic Bacterial Culture Routine (03/20/2021 6:00 AM CDT) [facility] Method Time Signature Culture STAPHYLOCOCCUS 03/27/2021 [facility] EPIDERMIDIS (A) 8:01 AM CDT [facility] Comment: Staphylococcus epidermidis Isolated from broth only Gram Stain 4+ Polymorphonuclear 03/27/2021 8:01 AM HEALTH Result leukocytes CDT [facility] Gram Stain No organisms seen 03/27/2021 8:01 AM HEALTH Result CDT [facility] Specimen Anatomical Collection Method Collection Time Receive d Time (Source) Location / / Volume Laterality Body fluid Non-blood 03/20/2021 6:00 AM 1 sample Collection / CDT 12:05 PM CDT (specimen) Unknown Organism Antibiotic Method Susceptibility Staphylococcus epidermidis Clindamycin SANDRA >2: R esistant Staphylococcus epidermidis Cefazolin SANDRA <=2: Susceptible Staphylococcus epidermidis Doxycycline SANDRA 4: Ortiz sceptible Staphylococcus epidermidis Levofloxacin SANDRA >4: R esistant Staphylococcus epidermidis Oxacillin SANDRA <=0.2 5: Susceptible Staphylococcus epidermidis Vancomycin SANDRA 1: Ortiz sceptible Comment: Z96.612 [facility] - MICRO GENERAL ORDERABL ES Performing Organization Address City/[facility] [place] [address] [address] [facility] Anaerobic Bacterial Culture Routine (03/20/2021 6:00 AM CDT) [facility] Method Time Signature Culture No anaerobic 03/23/2021 HEALTH organisms 7:18 AM CDT [facility] Specimen Anatomical Collection Method Collection Time Receive d Time (Source) Location / / Volume Laterality Body fluid Non-blood 03/20/2021 6:00 AM 1 sample Collection / CDT 12:05 PM CDT (specimen) Unknown [facility] - MICRO GENERAL ORDERABL ES Performing Organization Address City/[facility]/[place]IP [place] [address] [address] [facility] (ABNORMAL) Cell count with differential fluid (03/20/2021 6:00 AM CDT) [facility] Method Time Signature Color Red 03/20/2021 HEALTH 2:04 PM CDT [facility] Clarity Turbid 03/20/2021 HEALTH 2:04 PM CDT [facility] Total Nucleated 42,864 (H) 0 - 99 03/20/2021 [facility] Cells /uL 2:04 PM CDT [facility] RBC, Fluid >50,000 <50,000 03/20/2021 HEALTH (A) /ul 2:04 PM CDT [facility] % Neutrophils 91 (H) <=25 % 03/20/2021 [facility] 2:04 PM CDT [facility] % Lymphocytes 8 <=78 % 03/20/2021 [facility] 2:04 PM CDT [facility] Monocyte % 1 <=71 % 03/20/2021 [facility] 2:04 PM CDT [facility] Macrophage % 03/20/2021 [facility] 2:04 PM CDT [facility] Mesothelials, 03/20/2021 [facility] Fluid 2:04 PM CDT [facility] % Eosinophils 03/20/2021 [facility] 2:04 PM CDT [facility] % Other Cells 03/20/2021 [facility] 2:04 PM CDT [facility] Specimen Anatomical Collection Method Collection Time Receive d Time (Source) Location / / Volume Laterality Body fluid BODY FLUID SAMPLE Non-blood 03/20/2021 6:00 AM 02/27 sample / Unknown Collection / CDT 12:05 PM CDT (specimen) Unknown Narrative [facility] - 03/20/2021 2:04 PM CDT Large clot present; count may be inaccur ate. [facility] - BODY FLUIDS ORDERABLES Performing Organization Address City/State/ZIP [place] [address] [phone] [place] [facility] [address] [place] [phone] [place] [address] [place] [address], [facility] [phone] documented in this encounter Visit Diagnoses Not on filedocumented in this encounter Care Teams Social Media Editor Relationship Specialty Start Date End Date Clinic, [facility] PCP - General 06/03/17[address] [place] [address] documented as of this encounter
--- OUTSIDE RECORDS SUMMARY | 2022-07-06 14:58 | XMS_ITS | Encounter Summary ---
:1965 Author Organization [place] Address [address] [place] [address] Care Team Providers Name Role Phone [facility] Primary Care Provide r Encounter Details Date Type Department Care Team Description 04/01/2021 Records - [facility] CONVERSION Provider, Alea [...] Comme nts LAB RESULT - HIM SCAN 05/14/2021 documented in this encounter Results LAB RESULT - HIM SCAN (05/14/2021) Narrative This result has an attachment that is no t available. Historical Provider NON-BEAKER LAB TESTING documented in this encounter Visit Diagnoses Not on filedocumented in this encounter Care Teams Branch Assistant Relationship Specialty Start Date End Date [facility] PCP - General 06/03/17[address] [place] [address] documented as of this encounter
--- OUTSIDE RECORDS SUMMARY | 2022-07-06 14:58 | XMS_ITS | Encounter Summary ---
:1965 Author Organization [place] Address [address] [address] Care Team Providers Name Role Phone Clinic, [facility] Primary Care Provide r Reason for Visit Auth/Cert Specialty Diagnoses / Procedures Referred By Contact Refer red To Contact Surgery Diagnoses URGE AND STRESS INCONTINENCE,FEMALE STRESS INCONTINENCE Sh Periop Services Procedures CYSTOSCOPY, SLING TRANSVAGINAL [address], [address] [place] [address] Phone: Referral ID Status Reason Start Date Expiration Date Visits Requ ested Visits Authorized [id number] 1 1 Encounter Details Date Type Department Care Team Description 10/14/2017 Anesthesia Event M [facility] SruthiEri rosa MD [facility] ANESTHESIA [address] [place] [address] [facility] PeriOP Gayatri Combs, ELIGIBILITY SPECIALIST SOFTWARE CONTROLS ENGINEER [address] [place] [address] Services [address] [place] [address] Anesthesia Record Procedure Summary Procedure Name Responsible Anesthesia Start Anesthesia Stop Time Anesthesiologist Time CYSTOSCOPY,TVT SruthiMini MD 10/14/17 1246 7 1334 SLING (N/A Vagina) Events Date Time Event Comment 10/14/2017 1222 1246 An Start 1246 An Start Data 1252 An Induction 1254 MD Present 1254 An LMA 1306 AN INCISION 1328 LMA Removed 1328 an stop data 1334 An Stop Electronically s igned by Gayatri Combs on October 14, 2017 1:34 PM Name Total dexamethasone 4mg/mL 4 mg fentaNYL (SUBLIMAZE) injection 100 mcg lidocaine 2% 80 mg midazolam 1mg/mL 2 mg ondansetron 2mg/mL 4 mg propofol (DIPRIVAN) injection 10 mg/mL vial 200 mg propofol infusion (mcg/kg/min) 380.59 mg ciprofloxacin (CIPRO) infusion 400 mg 400 mg dexmedetomidine (PRECEDEX) 4 mcg/mL bolus 20 mcg LR 600 mL Agents Name NO HELIOX O2 N2O Air Exp Sevoflurane Exp Isoflurane Exp Desflurane Exp N2O Ins Sevoflurane Ins Isoflurane Ins Desflurane O2 Auxiliary Blood No blood administrations on file. Lines, Drains, and Airways Type Details Placement Removal Packing 10/14/17; 1320; 10/14/17 1320 by Vagina; Brendanuze Usha Bra, RADHA radiopaque vaginal packing (soaked with saline and lube); 1 Peripheral IV 10/14/17; 1251; 20 G; 10/14/17 1251 by 10/14/17 1544 by Left; Hand; Alcohol; Gayatri Combs, Vicki Collins D, Injectable; Tolerated SOFTWARE CONTROLS ENGINEER RN well Retired Non-Surgical 10/14/17; 1254; Easy; 10/14/17 1254 by 09/28 06/13 1328 by Airway Intravenous; 4; mm; Gayatri Combs, ELIGIBILITY SPECIALIST Gayatri Combs, laryngeal mask airway; SOFTWARE CONTROLS ENGINEER ELIGIBILITY SPECIALIST SOFTWARE CONTROLS ENGINEER midline; Equal, clear and bilateral; SOFTWARE CONTROLS ENGINEER; hh Urethral Catheter 10/14/17; 1314; No; 10/14/17 1314 by 10/14/17 1316 by /GI/HUMAN RESOURCE INTERN Pelvic Usha Bar, Carole Duff, Procedure; 16 fr RN documented in this encounter Social History Tobacco Use Types Packs/Day Years Used Date Current Every Day Smoker 0.5 Smokeless Tobacco: Never Used Alcohol Use Standard Drinks/Week Comments No 0 (1 standard drink = 0.6 oz pure alcoho l) Sex Assigned at Date Recorded Not on file documented as of this encounter OR Notes Anesthesia Postprocedure Evaluation - Sruthi, Mini Angelo MD - 10/14/2017 1:50 PM CST Patient: Angie Mosquera Procedure(s): CYSTOSCOPY,TVT SLING - Wound Class: II-Clean Contaminated Diagnosis:URGE AND STRESS INCONTINENCE,FEMALE STRESS INCONTINENCE Diagnosis Additional Information: No value filed. Anesthesia Type: General, LMA Note: Anesthesia Post Evaluation Patient location during evaluation: PACU Patient participation: Able to fully participate in evaluation Level of consciousness: awake Pain management: adequate Airway patency: patent Cardiovascular status: acceptable Respiratory status: acceptable Hydration status: acceptable PONV: none Anesthetic complications: None Last vitals: Vitals: 10/14/17 1215 10/14/17 1331 BP: 122/87 (!) 82/50 Resp: 20 11 Temp: 36.1 ??C (97 ??F) 35.7 ??C (96.3 ??F) SpO2: 100% 99% Electronically Signed By: Mini Negro MD, MD October 14, 2017 1:50 PM R SERVICES COORDINATOR Anesthesia Preprocedure Evaluation - Mini Negro MD - 10/14/2017 12:21 PM CST Anesthesia Evaluation . Pt has had prior anesthetic. No history of anesthetic complications ROS/MED HX ENT/Pulmonary: (+)asthma , . . (-) sleep apnea Neurologic: (+)migraines, other neuro Fibromyalgia Cardiovascular: METS/Exercise Tolerance: Hematologic: Musculoskeletal: GI/Hepatic: (-) GERD Renal/Genitourinary: Endo: Psychiatric: Infectious Disease: Malignancy: Other: Anesthesia Plan History & Physical Review History and physical reviewed and following examination; no interval change. ASA Status: 2 . NPO Status: > 8 hours Plan for General and LMA with Intravenous induction. Maintenance will be Balanced. PONV prophylaxis: Ondansetron (or other 5HT-3) and Dexamethasone or Solumedrol (Propofol gtt) Postoperative Care Postoperative pain management: IV analgesics and Oral pain medications. Consents Anesthetic plan, risks, benefits and alternatives discussed with: Patient.. Procedure: Procedure(s): CYSTOSCOPY, SLING TRANSVAGINAL Preop diagnosis: URGE AND STRESS INCONTINENCE,FEMALE STRESS INCONTINENCE Allergies Allergen Reactions ??? Adhesive Tape ??? Amoxicillin ??? Benzoin Blisters ??? Gabapentin ??? Soy Allergy ??? Sulfamethoxazole-Trimethoprim GI Disturbance GI upset ??? Tegaderm Chg Dressing [Chlorhexidine] Dermatitis ??? Tegaderm Transparent Dressing (Informational Only) ??? Acyclovir Rash ??? Cephalosporins Rash ??? Zander Rash Past Medical History: Diagnosis Date ??? Fibromyalgia, primary ??? Migraine ??? Osteoporosis ??? Restless leg ??? Stress incontinence ??? Uncomplicated asthma Past Surgical History: Procedure Laterality Date ??? ABDOMEN SURGERY ??? BACK SURGERY ??? CHOLECYSTECTOMY ??? HUMAN RESOURCE INTERN SURGERY ??? ORTHOPEDIC SURGERY Social History Substance Use Topics ??? Smoking status: Current Every Day Smoker Packs/day: 0.50 ??? Smokeless tobacco: Not on file ??? Alcohol use No Prior to Admission medications Medication Sig Start Date End Date Taking? Authorizing Provider BIOTIN PO Take 5,000 mcg by mouth daily Yes Reported, Patient VITAMIN D, CHOLECALCIFEROL, PO Take 10,000 Units by mouth daily (Takes 2 x 5000 unit tablet = 71870 unit dose) Yes Reported, Patient Esomeprazole Magnesium (NEXIUM PO) Take 40 mg by mouth 2 times daily (before meals) Yes Reported, Patient Pregabalin (LYRICA PO) Take 450 mg by mouth every evening (Takes 3 x 150mg = 450mg dose) Yes Reported, Patient CETIRIZINE HCL PO Take 10 mg by mouth daily Yes Reported, Patient METHOCARBAMOL PO Take 500 mg by mouth 4 times daily as needed for muscle spasms Yes Reported, Patient tiotropium (SPIRIVA) 18 MCG capsule Inhale 18 mcg into the lungs 2 times daily Yes Reported, Patient Polyethylene Glycol 3350 (MIRALAX PO) Take 1 Dose by mouth daily as needed Yes Reported, Patient lidocaine (XYLOCAINE) 5 % ointment Apply topically 2 times daily as needed for moderate pain Yes Reported, Patient Nutritional Supplements (DHEA PO) Take 1 tablet by mouth daily Yes Reported, Patient Lurasidone HCl (LATUDA PO) Take 60 mg by mouth daily Yes Reported, Patient DIAZEPAM PO Take 10 mg by mouth 3 times daily as needed for anxiety Yes Reported, Patient ondansetron (ZOFRAN-ODT) 4 MG ODT tab Take 4 mg by mouth every 8 hours as needed for nausea Yes Reported, Patient BENZONATATE PO Take 200 mg by mouth 3 times daily as needed for cough Yes Reported, Patient estradiol (VIVELLE-DOT) 0.05 MG/24HR BIW patch Place 1 patch onto the skin twice a week Tuesday and Fridays Yes Reported, Patient hydrocortisone 2.5 % cream Apply topically 4 times daily as needed Yes Reported, Patient ZONISAMIDE PO Take 300 mg by mouth 2 times daily (3 x 100mg tablet = 300mg dose) Yes Reported, Patient CYANOCOBALAMIN PO Take 5,000 mcg by mouth daily Yes Reported, Patient FOLIC ACID PO Take 800 mcg by mouth daily Yes Reported, Patient budesonide-formoterol (SYMBICORT) 160-4.5 MCG/ACT Inhaler Inhale 2 puffs into the lungs 2 times daily Yes Reported, Patient medical cannabis (Patient's own supply. Not a prescription) Take 1 capsule by mouth daily (This is NOT a prescription, and does not certify that the patient has a qualifying medical condition for medical cannabis. The purpose of this order is to document that the patient reports taking medical cannabis.) Yes Reported, Patient albuterol (PROAIR HFA/PROVENTIL HFA/VENTOLIN HFA) 108 (90 BASE) MCG/ACT Inhaler Inhale 2-4 puffs into the lungs every 4 hours as needed for shortness of breath / dyspnea or wheezing Yes Reported, Patient naloxone (NARCAN) nasal spray Draper 4 mg into one nostril alternating nostrils daily as needed for opioid reversal every 2-3 minutes until assistance arrives Yes Reported, Patient VALACYCLOVIR HCL PO Take 500 mg by mouth daily as needed Yes Reported, Patient DIPHENHYDRAMINE HCL PO Take 25-50 mg by mouth 4 times daily as needed (allergies) Yes Reported, Patient albuterol (2.5 MG/3ML) 0.083% neb solution Take 1 vial by nebulization every 6 hours as needed for shortness of breath / dyspnea or wheezing Yes Reported, Patient OXYCODONE HCL PO Take 5 mg by mouth every 4 hours as needed Yes Reported, Patient Acetaminophen (TYLENOL PO) Take 1,300 mg by mouth every 8 hours as needed Yes Reported, Patient Pregabalin (LYRICA PO) Take 150 mg by mouth daily Yes Reported, Patient LamoTRIgine (LAMICTAL PO) Take 200 mg by mouth 2 times daily Yes Reported, Patient potassium chloride rebekah er (K-DUR) Take 20 mEq by mouth 2 times daily (Takes 2 x 10meq tablet = 20meq dose) Yes Reported, Patient Furosemide (LASIX PO) Take 40 mg by mouth daily (Takes 2 x 20mg tablet = 40mg dose) Yes Reported, Patient nicotine (NICOTROL) 10 MG Inhaler Inhale 6-16 Cartridges into the lungs daily as needed for smoking cessation Reported, Patient Current Facility-Administered Medications Ordered in [facility] Medication Dose Route Frequency Last Rate Last Dose ??? Provider ordered ALTERNATE pre op antibiotic. 1 each As instructed Continuous ??? ciprofloxacin (CIPRO) infusion 400 mg 400 mg Intravenous Pre-Op/Pre-procedure x 1 dose No current [facility]-ordered outpatient prescriptions on file. ??? Another Antibiotic has been ordered. Wt Readings from Last 1 Encounters: 06/03/17 66.2 kg (146 lb) Temp Readings from Last 1 Encounters: 06/03/17 36.9 ??C (98.4 ??F) (Oral) BP Readings from Last 6 Encounters: 06/03/17 105/74 05/17/17 110/85 07/18/16 113/81 Pulse Readings from Last 4 Encounters: 06/03/17 111 07/18/16 80 Resp Readings from Last 1 Encounters: 06/03/17 24 SpO2 Readings from Last 1 Encounters: 06/03/17 98% No results for input(s): NA, POTASSIUM, CHLORIDE, CO2, ANIONGAP, GLC, BUN, CR, ROGER in the last 20317pxdgp. No results for input(s): AST, ALT, ALKPHOS, BILITOTAL, LIPASE in the last 62431 hours. No results for input(s): WBC, HGB, PLT in the last 46019 hours. No results for input(s): ABO, RH in the last 29650 hours. No results for input(s): INR, PTT in the last 88987 hours. No results for input(s): TROPI in the last 84367 hours. No results for input(s): PH, PCO2, PO2, HCO3 in the last 63435 hours. No results for input(s): HCG in the last 78863 hours. No results found for this or any previous visit (from the past 744 hour(s)). RECENT LABS: ECG: ECHO: R SERVICES COORDINATOR documented in this encounter Miscellaneous Notes Anesthesia Care Transfer Note - Gayatri Combs APRN CRNA - 10/14/2017 1:34 PM CST Patient: Angie Mosquera Procedure(s): CYSTOSCOPY,TVT SLING - Wound Class: II-Clean Contaminated Diagnosis: URGE AND STRESS INCONTINENCE,FEMALE STRESS INCONTINENCE Diagnosis Additional Information: No value filed. Anesthesia Type: General, LMA Note: Airway :Face Mask Patient transferred to:PACU Handoff Report: Identifed the Patient, Identified the Reponsible Provider, Reviewed the pertinent medical history, Discussed the surgical course, Reviewed Intra-OP anesthesia mangement and issues during anesthesia, Set expectations for post-procedure period and Allowed opportunity for questions and acknowledgement of understanding Vitals: (Last set prior to Anesthesia Care Transfer) GINETTE VITALS 10/14/2017 1258 - 10/14/2017 1334 10/14/2017 Pulse: 85 SpO2: 99 % Resp Rate (observed): 8 Resp Rate (set): 10 Electronically Signed By: Gayatri Combs APRN CRNA October 14, 2017 1:34 PM R SERVICES COORDINATOR documented in this encounter Plan of Treatment Not on filedocumented as of this encounter Visit Diagnoses Not on filedocumented in this encounter Administered Medications Inactive Administered Medications - up to 3 most recent administrations Medication Order MAR Action Action Date Dose Rate Site ciprofloxacin (CIPRO) infusion Given 10/14/2017 12:59 PM DONOR SERVICES COORDINATOR 400 mg 400 mg Routine, 400 mg, Intravenous, PRE-OP/PRE-PROCEDURE, Starting on Tue10/14/17 at 1155, For 1 dose, Irritant., Indications: Perioperative Pharmacoprophylaxis, Pre-procedure New Bag 10/14/2017 12:26 PM DONOR SERVICES COORDINATOR 400 mg dexamethasone (DECADRON) injection Given 10/14/2017 1:03 PM DONOR SERVICES COORDINATOR 4 mg PRN, Administer over 1 Minutes, Starting on Tue10/14/17 at 1303, Anesthesia Intra-op dexmedetomidine (PRECEDEX) 4 mcg/mL bolu s Bolus 10/14/2017 1:08 PM DONOR SERVICES COORDINATOR 8 mcg 200 mcg, CONTINUOUS PRN, Starting on Tue10/14/17 at 1305, Anesthesia Intra-op New Bag 10/14/2017 1:05 PM DONOR SERVICES COORDINATOR 12 mcg fentaNYL (PF) (SUBLIMAZE) injection Given 10/14/2017 12:52 PM DONOR SERVICES COORDINATOR 100 mcg PRN, moderate to severe pain, Administer over 3-5 Minutes, Starting on Tue10/14/17 at 1252, Anesthesia Intra-op lactated ringers infusion New Bag 10/14/2017 12:51 PM DONOR SERVICES COORDINATOR Intravenous, CONTINUOUS PRN, Anesthesia Intra-op, Starting on Tue10/14/17 at 1251, Until Tue10/14/17 at 1334 lidocaine injection 2% (MDV) Given 10/14/2017 12:52 PM DONOR SERVICES COORDINATOR 80 mg PRN, Starting on Tue10/14/17 at 1252, Anesthesia Intra-op midazolam (VERSED) injection Given 10/14/2017 12:51 PM DONOR SERVICES COORDINATOR 2 mg Administer over 2 Minutes, PRN, anxiety, Starting on Tue10/14/17 at 1251, Anesthesia Intra-op ondansetron (ZOFRAN) injection Given 10/14/2017 1:03 PM DONOR SERVICES COORDINATOR 4 mg PRN, nausea, vomiting, Administer over 2-5 Minutes, Starting on Tue10/14/17 at 1303, Anesthesia Intra-op propofol (DIPRIVAN) infusion Rate/Dose 10/14/2017 1:14 150 mcg/kg/min 66.5 mL/hr Intravenous, CONTINUOUS PRN, Change PM DONOR SERVICES COORDINATOR Starting on Tue10/14/17 at 1252, Anesthesia Intra-op New Bag 10/14/2017 12:52 PM DONOR SERVICES COORDINATOR 200 mcg/kg/min 88.7 mL/hr propofol (DIPRIVAN) injection 10 mg/mL v ial Given 10/14/2017 1:06 PM DONOR SERVICES COORDINATOR 50 mg PRN, Starting on Tue10/14/17 at 1252, Anesthesia Intra-op Given 10/14/2017 12:52 PM DONOR SERVICES COORDINATOR 150 mg documented in this encounter Care Teams Die Mounter Relationship Specialty Start Date End Date Clinic, [facility] PCP - General 06/03/171999 [place] [address] documented as of this encounter
--- OUTSIDE RECORDS SUMMARY | 2022-07-06 14:58 | XMS_ITS | Encounter Summary ---
:1965 Author Organization [place] Address [facility] [facility] [address] Care Team Providers Name Role Phone [facility] Primary Care Provide r Mor Bautista MD Unavailable Encounter Details Date Type Department Care Team Description 05/11/2021 Records - [facility] HE CONVERSION Scan, Non-Provider Social History Tobacco Use Types Packs/Day Years [...] on filedocumented in this encounter Care Teams Umbrella Repairer Relationship Specialty Start Date End Date [facility], [facility] PCP - General 06/03/17 [facility] [address] [place] [address] Mor Bautista MD Assigned Infectious Disease 06/12/21 [address] Provider [address] [place] [address] documented as of this encounter
--- OUTSIDE RECORDS SUMMARY | 2022-07-06 14:58 | XMS_ITS | Encounter Summary ---
:1965 Author Organization [place] Address [address] [place] [address] Care Team Providers Name Role Phone [facility], [facility] Primary Care Provide r Encounter Details Date Type Department Care Team Description [facility] ProviderAlea Social History Tobacco [...] on filedocumented in this encounter Care Teams Old Testament Professor Relationship Specialty Start Date End Date [facility] PCP - General 06/03/171999 [place] [address] documented as of this encounter
--- OUTSIDE RECORDS SUMMARY | 2022-07-06 14:58 | XMS_ITS | Encounter Summary ---
:1965 Author Organization [place] Address [address] [facility] [place] [address] Care Team Providers Name Role Phone Clinic, [facility] Primary Care Provide r Reason for Visit Auth/Cert Specialty Diagnoses / Procedures Referred By Contact Refer red To Contact Surgery Diagnoses URGE AND STRESS INCONTINENCE,FEMALE STRESS INCONTINENCE Sh Periop Services Procedures CYSTOSCOPY, SLING TRANSVAGINAL [address] [place] [address] Phone: Referral ID Status Reason Start Date Expiration Date Visits Requ ested Visits Authorized [id number] 1 1 Encounter Details Date Type Department Care Team Description 10/14/[address] [facility] Sitbonnie, Mary Ann ss incontinence Shayne Rodrigez MD (Primary Dx) PreOP/Phase II [place] [address] UROLOGY [address] [facility] [address] [place] [address] [phone] Social History Tobacco Use Types Packs/Day Years Used Date Current Every Day Smoker 0.5 Smokeless Tobacco: Never Used Alcohol Use Standard Drinks/Week Comments No 0 (1 standard drink = 0.6 oz pure alcoho l) Sex Assigned at Date Recorded Not on file documented as of this encounter Last Filed Vital Signs Vital Sign Reading Time Taken Comments Blood Pressure 121/86 10/14/2017 4:28 PM WRAPPER SORTER Pulse - - Temperature 36.6 ??C (97.8 ??F) 10/14/2017 3:00 PM WRAPPER SORTER Respiratory Rate 16 10/14/2017 4:28 PM WRAPPER SORTER Oxygen Saturation 98% 10/14/2017 4:28 PM WRAPPER SORTER Inhaled Oxygen Concentration - - Weight 73.9 kg (163 lb) 10/14/2017 12:15 PM WRAPPER SORTER Height 152.4 cm (5') 10/14/2017 12:15 PM WRAPPER SORTER Body Mass Index 31.83 10/14/2017 12:15 PM WRAP[facility] SORTER documented in this encounter Discharge Instructions Discharge InstructionsGi King RN - 10/14/2017 1:42 PM WRAPPER SORTER Post Bladder Sling Instructions Dr Stafford [phone] ?? For pain you may take a narcotic/acetaminophen combination prescription for pain relief. The mostcommon pain is in the upper thighs. This usually lasts 2-3 days. You may use cold packs to this areaas needed to reduce pain and bruising. Generally scll-gkw-hcbvgsl medicines such as ibuprofen, 3-4 tablets every 6 to 8 hours as needed or acetaminophen (Tylenol) as prescribed on the bottle. If you have pain unrelieved by these measures, call the office. ?? Activity: no lifting more than 10 lbs for 6-8 weeks; limit strenuous activity including intercourse for 6 weeks minimum but 8 weeks is better. Gradually increase your activity as tolerated. Plan on not driving for a couple of days after surgery, though you may feel like doing so sooner. ?? The incisions in the upper thigh area will be covered with Dermabond which will wear off. The small incision in your vagina will be closed with sutures which will dissolve automatically. If your doctor prescribed premarin cream/estrace cream apply it to the vagina using your fingertip once a day (at bedtime) for one month after the surgery. That helps expedite the vaginal healing and absorption ofthe vaginal sutures. ?? Post op appointments: Call [phone] to schedule an appointment to see your provider in 3-5 weeks and 3 months after surgery. ?? Shower and bath: Ok to shower 24 hours after surgery but should avoid tub baths for up to 2 months after the surgery. ?? Bleeding: Depending on your procedure you may have a small amount of vaginal bleeding (like a period) which may last 1-3 weeks. If it is heavier than your menstrual period call the office. Call Dr Stafford's office if you have: ?? A fever greater than 101??F ?? Difficulty/painful urination ?? Problems with nausea/vomiting ?? Large amount of vaginal drainage. Same Day Surgery Discharge Instructions for Sedation and General Anesthesia ?? It's not unusual to feel dizzy, light-headed or faint for up to 24 hours after surgery or while taking pain medication. If you have these symptoms: sit for a few minutes before standing and have someone assist you when you get up to walk or use the bathroom. ?? You should rest and relax for the next 24 hours. We recommend you make arrangements to have an adult stay with you for at least 24 hours after your discharge. Avoid hazardous and strenuous activity. ?? DO NOT DRIVE any vehicle or operate mechanical equipment for 24 hours following the end of your surgery. Even though you may feel normal, your reactions may be affected by the medication you have received. ?? Do not drink alcoholic beverages for 24 hours following surgery. ?? Slowly progress to your regular diet as you feel able. It's not unusual to feel nauseated and/or vomit after receiving anesthesia. If you develop these symptoms, drink clear liquids (apple juice, louise derek, broth, 7-up, etc. ) until you feel better. If your nausea and vomiting persists for 24 hours, please notify your surgeon. ?? All narcotic pain medications, along with inactivity and anesthesia, can cause constipation. Drinking plenty of liquids and increasing fiber intake will help. ?? For any questions of a medical nature, call your surgeon. ?? Do not make important decisions for 24 hours. ?? If you had general anesthesia, you may have a sore throat for a couple of days related to the breathing tube used during surgery. You may use Cepacol lozenges to help with this discomfort. If it worsens or if you develop a fever, contact your surgeon. ?? If you feel your pain is not well managed with the pain medications prescribed by your surgeon, please contact your surgeon's office to let them know so they can address your concerns. PER SORTER documented in this encounter Medications at Time of Discharge Medication Sig Dispensed Refills Start Date End Date Acetaminophen (TYLENOL Take 1,300 mg by 0 PO) mouth every 8 hours as needed albuterol (2.5 MG/3ML) Take 1 vial by 0 0.083% neb solution nebulization every 6 hours as needed for shortness of breath / dyspnea or wheezing albuterol (PROAIR Inhale 2-4 puffs into 0 HFA/PROVENTIL the lungs every 4 HFA/VENTOLIN HFA) 108 hours as needed for (90 BASE) MCG/ACT shortness of breath / Inhaler dyspnea or wheezing BENZONATATE PO Take 200 mg by mouth 0 3 times daily as needed for cough BIOTIN PO Take 5,000 mcg by 0 mouth daily budesonide-formoterol Inhale 2 puffs into 0 (SYMBICORT) 160-4.5 the lungs 2 times MCG/ACT Inhaler daily CETIRIZINE HCL PO Take 10 mg by mouth 0 daily CYANOCOBALAMIN PO Take 5,000 mcg by 0 mouth daily DIAZEPAM PO Take 10 mg by mouth 3 0 times daily as needed for anxiety DIPHENHYDRAMINE HCL PO Take 25-50 mg by 0 mouth 4 times daily as needed (allergies) Esomeprazole Magnesium Take 40 mg by mouth 2 0 (NEXIUM PO) times daily (before meals) estradiol (ESTRACE Pea size on a finger 42.5 g 0 017 VAGINAL) 0.1 MG/GM to the vagina OHS creamIndications: Stress incontinence estradiol (VIVELLE-DOT) Place 1 patch onto 0 0.05 MG/24HR BIW patch the skin twice a week Tuesday and Fridays FOLIC ACID PO Take 800 mcg by mouth 0 daily Furosemide (LASIX PO) Take 40 mg by mouth 0 daily (Takes 2 x 20mg tablet = 40mg dose) HYDROcodone-acetaminophe Take 1 tablet by 25 tablet 0 10/14 n (NORCO) 5-325 MG per mouth every 6 hours tabletIndications: as needed for Stress incontinence moderate to severe pain hydrocortisone 2.5 % Apply topically 4 0 cream times daily as needed LamoTRIgine (LAMICTAL Take 200 mg by mouth 0 PO) 2 times daily lidocaine (XYLOCAINE) 5 Apply topically 2 0 % ointment times daily as needed for moderate pain Lurasidone HCl (LATUDA Take 60 mg by mouth 0 PO) daily medical cannabis Take 1 capsule by 0 (Patient's own supply. mouth daily (This is Not a prescription) NOT a prescription, and does not certify that the patient has a qualifying medical condition for medical cannabis. The purpose of this order is to document that the patient reports taking medical cannabis.) METHOCARBAMOL PO Take 500 mg by mouth 0 4 times daily as needed for muscle spasms naloxone (NARCAN) nasal [place] 4 mg into one 0 spray nostril alternating nostrils daily as needed for opioid reversal every 2-3 minutes until assistance arrives nicotine (NICOTROL) 10 Inhale 6-16 0 MG Inhaler Cartridges into the lungs daily as needed for smoking cessation Nutritional Supplements Take 1 tablet by 0 (DHEA PO) mouth daily ondansetron (ZOFRAN-ODT) Take 4 mg by mouth 0 4 MG ODT tab every 8 hours as needed for nausea OXYCODONE HCL PO Take 5 mg by mouth 0 every 4 hours as needed oxyCODONE IR Take 1 tablet (5 mg) 25 tablet 0 10/14/2017 (ROXICODONE) 5 MG by mouth every 4 tabletIndications: hours as needed for Stress incontinence moderate to severe pain Polyethylene Glycol 3350 Take 1 Dose by mouth 0 (MIRALAX PO) daily as needed potassium chloride rebekah Take 20 mEq by mouth 0 er (K-DUR) 2 times daily (Takes 2 x 10meq tablet = 20meq dose) Pregabalin (LYRICA PO) Take 450 mg by mouth 0 every evening (Takes 3 x 150mg = 450mg dose) Pregabalin (LYRICA PO) Take 150 mg by mouth 0 daily tiotropium (SPIRIVA) 18 Inhale 18 mcg into 0 MCG capsule the lungs 2 times daily VALACYCLOVIR HCL PO Take 500 mg by mouth 0 daily as needed VITAMIN D, Take 10,000 Units by 0 CHOLECALCIFEROL, PO mouth daily (Takes 2 x 5000 unit tablet = 78340 unit dose) ZONISAMIDE PO Take 300 mg by mouth 0 2 times daily (3 x 100mg tablet = 300mg dose) ciprofloxacin (CIPRO) Take 1 tablet (500 6 tablet 0 201610/17/2017 500 MG mg) by mouth 2 times tabletIndications: daily for 6 doses Stress incontinence docusate sodium (COLACE) Take 100 mg by mouth 60 tablet 0 1 12/14/2016 11/13/2017 100 MG 2 times daily for 60 tabletIndications: doses Stress incontinence documented as of this encounter Nursing Notes Kathy Reyes RN - 10/14/2017 4:38 PM CST Patient spoke with Dr Stafford and was given a new prescription for Kennard. Prescription for Oxycodone shredded. Patient took hard copy of new Kennard prescription with her.; PER SORTER Vicki Matthews RN - 10/14/2017 3:39 PM CST Patient voided, bladder scan 450cc, encouraged patient to void again. Pt voided. Bladder scan for 100-150cc. Patient comfortable and ready to go home. PER SORTER documented in this encounter Miscellaneous Notes Op Note - Rain Stafford MD - 10/14/2017 4:38 PM CST DATE OF PROCEDURE: 10/14/2017 PREOPERATIVE DIAGNOSIS: Stress incontinence. POSTOPERATIVE DIAGNOSIS: Stress incontinence. PROCEDURE: Midurethral sling placement and cystoscopy. SURGEON: Rain Stafford MD. ANESTHESIA: General. ANTIBIOTICS: Preoperatively she received antibiotics. ESTIMATED BLOOD LOSS: Minimal. INDICATIONS FOR PROCEDURE: Angie Mosquera is a 52-year-old female with a history of stress incontinence who presents for mid urethral sling placement. Of note, she also underwent sling placement in [facility] and on exam I was able to see her mid urethral sling placed in good position; however, she continued to have stress incontinence. She was consented for the procedure with the risks of bleeding, infection, injury to the surrounding organs, de brigida urge incontinence, urinary retention, mesh erosion, dyspareunia. She also received FDA warning regarding all vaginally placed meshes. She would like toproceed. DESCRIPTION OF PROCEDURE: Patient was brought to the operating room, placed in supine position. After excellent induction of general anesthesia, her perineum was prepped and draped in the regular fashion. A 16-[place] catheter was placed. Periurethral space was hydrodistended using Marcaine with epinephrine. I used 20 mL for that. A 1 cm incision was made at the mid urethra and space was dissected all the way to the pubic rami bilaterally. I was able to feel the prior placed mid urethral sling which actually migrated towards the bladder neck area. I positioned polypropylene type 1 mesh from TVTO kit called Gynecare at the mid urethra going through the obturator foramen using inside-out technique. Once the graft was positioned, I performed cystoscopy that demonstrated no mesh, no pathology inthe bladder or urethra. I adjusted tension-free positioning of the graft by placing #8 Hegar dilatorbetween the Lagos in the urethra and the graft itself. Anterior vaginal wall was closed using 2-0 Vicryl in a running fashion. Dermabond was applied to the incision over tie areas. Vaginal packing was placed and Lagos catheter was removed. The plan as of now would be to give her a voiding trial in recovery and discontinue Vag pack in 2-hour interval. I will see her back in 1 month. Of note, as I mentioned, her prior placed sling appears to be migrated closer to the bladder neck. At this moment I did not cut or remove her old graft. RAIN STAFFORD MD MT: [id number] Name: ANGIE MOSQUERA Account: [id number] : 1965 Procedure Date: 10/14/2017 Document: [id number] cc: Rain Stafford MD PER SORTER documented in this encounter Plan of Treatment Not on filedocumented as of this encounter Procedures Procedure Name Priority Date/Time Associated Diagnosis Comme nts CREATION, VAGINAL 10/14/2017 12:46 PM URGE AND STRESS SLING, WITH CYSTOSCOPY WRAPPER SORTER INCONTINENCE,FEMAL E STRESS INCONTINENCE LAB RESULT - HIM SCAN 10/11/2017 12:00 AM WRAPPER SORTER EKG CARDIAC - HIM SCAN 08/15/2017 12:00 AM CDT XRAY IMAGING - HIM 07/25/2017 12:00 AM SCAN CDT documented in this encounter Results LAB RESULT - HIM SCAN (10/11/2017 12:00 AM WRAPPER SORTER) Specimen (Source) Anatomical Location Collection Method / Collectio n Time Received Time / Laterality Volume 10/11/2017 Narrative This result has an attachment that is no t available. Provider Outside NON-BEAKER LAB TESTING EKG CARDIAC - HIM SCAN (08/15/2017 12:00 AM CDT) Specimen (Source) Anatomical Location Collection Method / Collectio n Time Received Time / Laterality Volume 08/15/2017 Narrative This result has an attachment that is no t available. Provider Outside ECG ORDERABLES XRAY IMAGING - HIM SCAN (07/25/2017 12:00 AM CDT) Specimen (Source) Anatomical Location Collection Method / Collectio n Time Received Time / Laterality Volume 07/25/2017 Narrative This result has an attachment that is no t available. Provider Outside IMG DIAGNOSTIC IMAGING ORDER ALEXANDER documented in this encounter Visit Diagnoses Diagnosis Stress incontinence - Primary Female stress incontinence documented in this encounter Administered Medications Inactive Administered Medications - up to 3 most recent administrations Medication Order MAR Action Action Date Dose Rate Site ciprofloxacin (CIPRO) infusion Given 10/14/2017 12:59 PM WRAPPER SORTER 400 mg 400 mg Routine, 400 mg, Intravenous, PRE-OP/PRE-PROCEDURE, Starting on Tue10/14/17 at 1155, For 1 dose, Irritant., Indications: Perioperative Pharmacoprophylaxis, Pre-procedure New Bag 10/14/2017 12:26 PM WRAPPER SORTER 400 mg fentaNYL (PF) (SUBLIMAZE) injection 25-5 0 mcg Given 10/14/2017 2:01 PM WRAPPER SORTER 50 mcg 25-50 mcg, Intravenous, EVERY 2 MIN PRN, other, acute pain while in PACU., Starting on Tue10/14/17 at 1336, MAX cumulative dose = 250 mcg. Use Fentanyl initially, as a short acting agent for acute pain control. If insufficient, or a longer acting agent is needed, begin Morphine or Hydromorphone if ordered. Give IV Push undiluted over a minimum of 3-5 minutes up to 100 mcg., PACU Given 10/14/2017 1:50 PM WRAPPER SORTER 50 mcg HYDROmorphone (PF) (DILAUDID) injection Given 10/14/2017 2:42 PM WRAPPER SORTER 0.5 mg 0.3-0.5 mg 0.3-0.5 mg, Intravenous, EVERY 10 MIN PRN, other, acute pain.?May administer if Respiratory Rate is greater than 10, Starting on Tue10/14/17 at 1336, If fentanyl is also ordered, use HYDROmorphone if pain control insufficient with fentanyl or a longer acting agent is needed. Max cumulative dose = 2 mg Give IV Push undiluted up to 4 mg. Each 2mg over 2-5 minutes., PACU/Phase II Given 10/14/2017 2:18 PM WRAPPER SORTER 0.5 mg ondansetron (ZOFRAN) injection 4 mg Given 10/14/2017 2:18 PM WRAPPER SORTER 4 mg 4 mg, Intravenous, EVERY 30 MIN PRN, nausea, vomiting, Administer over 2-5 Minutes, Starting on Tue10/14/17 at 1336, For 2 doses, MAX total dose = 8 mg, including OR dosing. This is step 1 of the nausea and vomiting protocol. If not resolved in 15 minutes, then go to step 2 (Prochlorperazine if ordered). Irritant. For ordered doses up to 4 mg, give IV Push undiluted over 2-5 minutes., PACU/Phase II oxyCODONE IR (ROXICODONE) tablet 5 mg Given 10/14/2017 2:54 PM WRAPPER SORTER 5 mg 5 mg, Oral, ONCE, On Tue10/14/17 at 1500, For 1 dose, PACU scopolamine (TRANSDERM) 72 hr Given 10/14/2017 12:43 PM WRAPPER SORTER 1 pa tch Behind Left Ear patch 1 patch 1 patch, Transdermal, EVERY 72 HOURS, First dose on Tue10/14/17 at 1245, Apply patch to skin, behind ear. Remove every 72 hours. Each 1.5 mg patch delivers 1 mg of scopolamine., Pre-procedure documented in this encounter Active and Recently Administered Medications Times are shown in WRAPPER SORTER. Scheduled Medication Order 10/12/2017 10/13/2017 10/14/2017 ciprofloxacin (CIPRO) infusion 400 mg (COMPLETED) 1226 (New Bag - Provider: Rona Hanks RN)1259 (Given - Provider: Gayatri Combs APRN DAM TENDER) Routine, 400 mg, Intravenous, PRE-OP/PRE -PROCEDURE, Starting Tue10/14/17 at 1155, For 1 dose, Irritant., Indications: Perioperative Pharmacoprophylaxis, Pre-procedure oxyCODONE IR (ROXICODONE) tablet 5 mg (COMPLETED) 1454 (Given - Provider: Gi King RN) 5 mg, Oral, ONCE, Tue10/14/17 at 1500, For 1 dose, PACU scopolamine (TRANSDERM) 72 hr patch 1 patch (CANCELED) 1243 (Given - Provider: Rona Hanks RN) 1 patch, Transdermal, EVERY 72 HOURS, Fi rst dose on Tue10/14/17 at 1245, Apply patch to skin, behind ear. Remove every 72 hours. Each 1.5 mg patch delivers 1 mg of scopolamine., Pre-procedure PRN Medication Order 10/12/2017 10/13/2017 10/14/2017 bupivacaine 0.5 % - EPINEPHrine 1:200,000 injection (CANCELED) 1321 (Given - Provider: Rain Stafford MD) PRN, Starting Tue10/14/17 at 1321, Intra-procedure fentaNYL (PF) (SUBLIMAZE) injection 25-50 mcg (CANCELED) 1350 (Given - Provider: Gi King, RADHA)1401 (Given - Provider: Gi King, RADHA) 25-50 mcg, Intravenous, EVERY 2 MIN PRN, other, acute pain while in PACU., Starting Tue10/14/17 at 1336, MAX cumulative dose = 250 mcg. Use Fentanyl initially, as a short acting agent for acute pain co ntrol. If insufficient, or a longer acti ng agent is needed, begin Morphine or Hydromorphone if ordered. Give IV Push undiluted over a minimum of 3-5 minutes up to 100 mcg., PACU HYDROmorphone (PF) (DILAUDID) injection 0.3-0.5 mg (CANCELED) 1418 (Given - Provider: Gi King RN)1442 (Given - Provider: Gi King, RADHA) 0.3-0.5 mg, Intravenous, EVERY 10 MIN VA N, other, acute pain.?May administer if Respiratory Rate is greater than 10, Starting Tue10/14/17 at 1336, If fentanyl is also ordered, use HYDROmorphone if p ain control insufficient with fentanyl o r a longer acting agent is needed. Max cumulative dose = 2 mg Give IV Push undiluted up to 4 mg. Each 2mg over 2-5 minutes., PACU/Phase II ondansetron (ZOFRAN) injection 4 mg (CANCELED) 1418 (Given - Provider: Gi King, RN) 4 mg, Intravenous, EVERY 30 MIN PRN, mp sea, vomiting, Administer over 2-5 Minutes, Starting Tue10/14/17 at 1336, For 2 doses, MAX total dose = 8 mg, including OR dosing. This is step 1 of the nausea a nd vomiting protocol. If not resolved in 15 minutes, then go to step 2 (Prochlorperazine if ordered). Irritant. For ordered doses up to 4 mg, give IV Push undiluted over 2-5 minutes., PACU/Phase II skin closure adhesive (DERMABOND) vial (CANCELED) 1319 (Given - Provider: Rain Stafford MD) PRN, Starting Tue10/14/17 at 1319, Intra-procedure sodium chloride 0.9% (bottle) irrigation (CANCELED) 1309 (Given - Provider: Rain Stafford MD) PRN, Starting Tue10/14/17 at 1309, Intra-procedure sterile water irrigation (bag) (CANCELED) 1308 (Given - Provider: Rain Stafford MD) PRN, Intra-procedure, Starting Tue10/14/17 at 1308, U ntil Tue10/14/17 at 1544 documented in this encounter Care Teams Joinery Setter Out Relationship Specialty Start Date End Date [facility], [facility] PCP - General 06/03/171999 [place] [address] documented as of this encounter
--- OUTSIDE RECORDS SUMMARY | 2022-07-06 14:58 | XMS_ITS | Encounter Summary ---
:1965 Author Organization [place] Address [address] [place] [address] Care Team Providers Name Role Phone [facility] Primary Care Provide r Encounter Details Date Type Department Care Team Description 04/20/2021 Records - [facility] HE CONVERSION Provider, Alea [...] on filedocumented in this encounter Care Teams Police Service Technician Relationship Specialty Start Date End Date [facility] PCP - General 06/03/171999 [place] [address] documented as of this encounter
--- OUTSIDE RECORDS SUMMARY | 2022-07-06 14:58 | XMS_ITS | Encounter Summary ---
:1965 Author Organization [place] Address [address] [place] [address] Care Team Providers Name Role Phone [facility], [facility] Primary Care Provide r Encounter Details Date Type Department Care Team Description 04/29/2021 [facility] CONVERSION ProviderAlea Social History Tobacco Use [...] on filedocumented in this encounter Care Teams Kitchen Food Server Relationship Specialty Start Date End Date [facility] PCP - General 06/03/171999 [place] [address] documented as of this encounter
--- OUTSIDE RECORDS SUMMARY | 2022-07-06 14:58 | XMS_ITS | Encounter Summary ---
:1965 Author Organization [place] Address [address] [place] [address]. [place] [address] Care Team Providers Name Role Phone [facility] Primary Care Provide r Encounter Details Date Type Department Care Team Description 05/20/2021 Records - [facility] Provider, [facility] Health Information Management [address] [facility] [address] [place] [address] Social History Tobacco Use Types Packs/Day Years [...] Name Priority Date/Time Associated Diagnosis Comme nts CREATININE Routine 04/20/2021 Results for thi s procedure are in the resu lts section. documented in this encounter Results Creatinine (04/20/2021) P athologist Signature Creatinine 0.60 0.50 - 1.50 [facility] Specimen (Source) Anatomical Location Collection Method / Collectio n Time Received Time / Laterality Volume Blood specimen 04/20/2021 (specimen) Narrative 04/20/2021 [facility] EXTERNAL RESULT Historical Provider LAB - BLOOD ORDERABLES Performing Organization Address City/State/ZIP Code Phon e Number [facility] [address] [place] [address] documented in this encounter Visit Diagnoses Not on filedocumented in this encounter Care Teams Press Operator Apprentice Relationship Specialty Start Date End Date [facility] PCP - General 06/03/171999 [place] [address] documented as of this encounter
--- OUTSIDE RECORDS SUMMARY | 2022-07-06 14:58 | XMS_ITS | Encounter Summary ---
:1965 Author Organization [place] Address [address] [place] [address] Care Team Providers Name Role Phone [facility] Primary Care Provide r Encounter Details Date Type Department Care Team Description 03/20/2021 Records - [facility] HE CONVERSION Provider, Alea howadr Social History Tobacco Use Types Packs/Day Years [...] on filedocumented in this encounter Care Teams Medical Laboratory Assistant Relationship Specialty Start Date End Date [facility] PCP - General 06/03/171999 [place] [address] documented as of this encounter
--- OUTSIDE RECORDS SUMMARY | 2022-07-06 14:58 | XMS_ITS | Encounter Summary ---
:1965 Author Organization [place] Address [facility] [place] [address] Care Team Providers Name Role Phone Clinic, [facility] Primary Care Provide r Mor Bautista MD Unavailable Reason for Visit Reason Onset Date Comments Appointment 05/12/2021 Encounter Details Date Type Department Care Team Description 05/12/2021 [facility] Infectious Disease None Appointment Clinic [place] [phone] Social History Tobacco Use Types Packs/Day Years Used Date Current Every Day Smoker 0.5 Smokeless Tobacco: Never Used Alcohol Use Standard Drinks/Week Comments No 0 (1 standard drink = 0.6 oz pure alcoho l) Sex Assigned at Date Recorded Not on file documented as of this encounter Miscellaneous Notes Telephone Encounter - Tiffanie Georges - 05/12/2021 12:17 PM CDT [facility] Call Center Phone Message May a detailed message be left on voicemail: yes Reason for Call: Other: Pt requesting call back, pt stated she is returning a call to the clinic. Tack Puller did not see any notes in the pt's chart to refer to. Pt stated she is being referred from [facility] for a staph infection in her shoulder, pt stated she is needing to be seen this week. Pt stated she has trouble finding an antibiotics that works due to all the allergies she has Action Taken: Message routed to: [facility] ID documented in this encounter Plan of Treatment Not on filedocumented as of this encounter Visit Diagnoses Not on filedocumented in this encounter Care Teams Well Drill Operator Helper Cable Tool Relationship Specialty Start Date End Date Clinic, [facility] PCP - General 06/03/[address] [address] Mor Bautista MD Assigned Infectious Disease 06/12/21 [address] Provider [facility] [address] [place] [address] documented as of this encounter
--- OUTSIDE RECORDS SUMMARY | 2022-07-06 14:58 | XMS_ITS | Encounter Summary ---
:1965 Author Organization [place] Address [address] [facility] 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 Sh Periop Services Procedures CYSTOSCOPY, SLING TRANSVAGINAL [address], [address] [place] [address] Phone: Referral ID Status Reason Start Date Expiration Date Visits Requ ested Visits Authorized [id number] 1 1 Encounter Details Date Type Department Care Team Description 10/14/2017 Surgery [facility] [place], CYSTOSCOPY ,TVT SLING [place] [facility] ashwin Rodrigez MD [address], [address] [facility] [address] [place] [address] [facility] [phone] [place] [address] (Wo rk) Surgery Details Date/Time Status Location OR Service Patient Case Class Case Tr auma Class Type Case? 10/14/17 1:00 Posted OR OR [facility] Urology Same Day PM Surgery Panel 1 Procedure LRB Anes Op Region Wound Class Commen ts CYSTOSCOPY,TVT SLING N/A General Vagina II-Clean Contam inated CYSTOSCOPY,TVT SLING Surgeon Surgeon Role Service Panel Rain Stafford MD Primary Urology 1 documented in this encounter Social History Tobacco Use Types Packs/Day Years Used Date Current Every Day Smoker 0.5 Smokeless Tobacco: Never Used Alcohol Use Standard Drinks/Week Comments No 0 (1 standard drink = 0.6 oz pure alcoho l) Sex Assigned at Date Recorded Not on file documented as of this encounter Last Filed Vital Signs Vital Sign Reading Time Taken Comments Blood Pressure 93/59 10/14/2017 2:15 PM [facility] Pulse - - Temperature 35.7 ??C (96.3 ??F) 10/14/2017 1:31 PM [facility] Respiratory Rate 14 10/14/2017 2:15 PM [facility] Oxygen Saturation 93% 10/14/2017 2:15 PM [facility] Inhaled Oxygen Concentration - - Weight 73.9 kg (163 lb) 10/14/2017 12:15 PM [facility] Height 152.4 cm (5') 10/14/2017 12:15 PM [facility] Body Mass Index 31.83 10/14/2017 12:15 PM [facility] documented in this encounter Discharge Instructions Discharge InstructionsGi King, RADHA - 10/14/2017 1:42 PM [facility] Post Bladder Sling Instructions Dr Stafford [phone] ?? For pain you may take a narcotic/acetaminophen combination prescription for pain relief. The mostcommon pain is in the upper thighs. This usually lasts 2-3 days. You may use cold packs to this areaas needed to reduce pain and bruising. Generally dyzh-uyc-szzclhu medicines such as ibuprofen, 3-4 tablets every [...] vaginal sutures. ?? Post op appointments: Call [phone] to schedule an appointment to see your [...] know so they can address your concerns. [facility] documented in this encounter Medications at Time [...] needed for muscle spasms naloxone (NARCAN) nasal [place] 4 mg into one 0 spray nostril [...] (Takes 2 x 5000 unit tablet = 80703 unit dose) ZONISAMIDE PO Take 300 mg [...] and was given a new prescription for [place]. Prescription for Oxycodone shredded. Patient took hard copy of new [place] prescription with her.; [facility] Vicki Matthews RN - 10/14/2017 3:39 PM CST Patient voided, bladder scan 450cc, encouraged patient to void again. Pt voided. Bladder scan for 100-150cc. Patient comfortable and ready to go home. [facility] documented in this encounter Miscellaneous Notes Op [...] note, she also underwent sling placement in [facility] and on exam I was able to [...] and draped in the regular fashion. A 16-[place] catheter was placed. Periurethral space was [...] STAFFORD MD MT: [id number] Name: ANGIE MOSQUERA MRN: [id number] Account: [id number] : 1965 Procedure Date: 10/14/2017 Document: [id number] cc: Rain Stafford MD [facility] documented in this encounter Plan of Treatment Not on filedocumented as of this encounter Procedures Procedure Name Priority Date/Time Associated Diagnosis Comme nts CREATION, VAGINAL 10/14/2017 12:46 PM URGE AND STRESS SLING, WITH CYSTOSCOPY [facility] INCONTINENCE,FEMAL E STRESS INCONTINENCE LAB RESULT - HIM SCAN 10/11/2017 12:00 AM [facility] EKG CARDIAC - HIM SCAN 08/15/2017 12:00 AM CDT XRAY IMAGING - HIM 07/25/2017 12:00 AM SCAN CDT documented in this encounter Results LAB RESULT - HIM SCAN (10/11/2017 12:00 AM [facility]) Specimen (Source) Anatomical Location Collection Method / Collectio n Time Received Time / Laterality Volume 10/11/2017 Narrative This result has an attachment that is no t available. Provider Outside [facility] NON-BEAKER LAB TESTING EKG CARDIAC - HIM [...] ALEXANDER documented in this encounter Visit Diagnoses Not on filedocumented in this encounter Administered Medications Inactive Administered Medications - up to 3 most recent administrations Medication Order MAR Action Action Date Dose Rate Site bupivacaine 0.5 % - Given 10/14/2017 1:21 PM 30 mLs Operative EPINEPHrine 1:200,000 [facility] Sit e/Surgical Site injection PRN, Starting on Tue10/14/17 at 1321, Intra-procedure ciprofloxacin (CIPRO) infusion 400 mg Given 10/14/2017 12:59 PM [facility] 400 mg Routine, 400 mg, Intravenous, PRE-OP/PRE-PROCEDURE, Starting on Tue10/14/17 at 1155, For 1 dose, Irritant., Indications: Perioperative Pharmacoprophylaxis, Pre-procedure New Bag 10/14/2017 12:26 PM [facility] 400 mg fentaNYL (PF) (SUBLIMAZE) injection 25-5 0 mcg Given 10/14/2017 2:01 PM [facility] 50 mcg 25-50 mcg, Intravenous, EVERY 2 [...] 100 mcg., PACU Given 10/14/2017 1:50 PM [facility] 50 mcg HYDROmorphone (PF) (DILAUDID) injection Given 10/14/2017 2:42 PM [facility] 0.5 mg 0.3-0.5 mg 0.3-0.5 mg, Intravenous, [...] minutes., PACU/Phase II Given 10/14/2017 2:18 PM [facility] 0.5 mg ondansetron (ZOFRAN) injection 4 mg Given 10/14/2017 2:18 PM [facility] 4 mg 4 mg, Intravenous, EVERY 30 [...] tablet 5 mg Given 10/14/2017 2:54 PM [facility] 5 mg 5 mg, Oral, ONCE, On Tue10/14/17 at 1500, For 1 dose, PACU scopolamine (TRANSDERM) 72 hr Given 10/14/2017 12:43 PM [facility] 1 pa tch Behind Left Ear patch 1 patch 1 patch, Transdermal, EVERY 72 HOURS, First dose on Tue10/14/17 at 1245, Apply patch to skin, behind ear. Remove every 72 hours. Each 1.5 mg patch delivers 1 mg of scopolamine., Pre-procedure skin closure adhesive Given 10/14/2017 1:19 PM 1 applicator Operative (DERMABOND) vial [facility] Site/Surgical S ite PRN, Starting on Tue10/14/17 at 1319, Intra-procedure sodium chloride 0.9% Given 10/14/2017 1:09 PM 1,000 mLs Operative (bottle) irrigation [facility] Site/Surgical S ite PRN, Starting on Tue10/14/17 at 1309, Intra-procedure sterile water irrigation Given 10/14/2017 1:08 PM 3,000 mLs Operative (bag) [facility] Site/Surgical S ite PRN, Intra-procedure, Starting on Tue10/14/17 at 1308, Until Tue10/14/17 at 1544 documented in this encounter Active and Recently Administered Medications Times are shown in [facility]. Scheduled Medication Order 10/12/2017 10/13/2017 10/14/2017 ciprofloxacin (CIPRO) infusion 400 mg (COMPLETED) 1226 (New Bag - Provider: Rona Hanks RN)1259 (Given - Provider: Gayatri Combs APRN CUSTOMER LIAISON) Routine, 400 mg, Intravenous, PRE-OP/PRE -PROCEDURE, Starting [...] mcg (CANCELED) 1350 (Given - Provider: Gi King RN)1401 (Given - Provider: Gi King, RADHA) 25-50 [...] RADHA) 0.3-0.5 mg, Intravenous, EVERY [address] N, other, acute pain.?May administer if Respiratory [...] (CANCELED) 1418 (Given - Provider: Gi King, RADHA) 4 mg, Intravenous, EVERY 30 MIN PRN, [...] - Provider: Rain Stafford MD) PRN, Starting 10/14/17 at 1309, Intra-procedure sterile water irrigation (bag) (CANCELED) 1308 (Given - Provider: Rain Stafford MD) PRN, Intra-procedure, Starting Tue10/14/17 at 1308, U ntil Tue10/14/17 at 1544 documented in this encounter Care Teams Bin Packer Relationship Specialty Start Date End Date Clinic, [facility] PCP - General 06/03/171999 [place] [address] documented as of this encounter
--- OUTSIDE RECORDS SUMMARY | 2022-07-06 14:59 | XMS_ITS | Encounter Summary ---
:1965 Author Organization [place] Address [address] [place] [address] Care Team Providers Name Role Phone Unavailable Primary Care Provider Unavailable Reason for Visit Reason Onset Date Comments Previsit 12/11/2014 12/19/[address] Juice mackenzie Encounter Details Date Type Department Care Team Description 12/11/2014 PRE VISIT Yasmin, Previsit ( [facility] Shauna Alejo MD with Dr Humphrey) [place] [id number] [place], [place] [phone] (Wo rk) Social History Tobacco Use Types Packs/Day Years Used Date Never Assessed Sex Assigned at Date Recorded Not on file documented as of this encounter Plan of Treatment Not on filedocumented as of this encounter Visit Diagnoses Not on filedocumented in this encounter
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
--- OUTSIDE RECORDS SUMMARY | 2022-07-06 14:59 | XMS_ITS | Encounter Summary ---
:1965 Author Organization [facility] Address [address], [place] [address] Care Team Providers Name Role Phone Jose Holden MD Primary Care Provider [phone] Reason for Visit Reason Comments Revisit occipital nerve block Encounter Details Date Type Department Care Team Description 07/10/2018 Office Visit [facility] Frank occipital neuralgia (Primary Dx); [facility] Myalgia; Management [address] H/O cervical spinal arthrodesis [address] [place] [address] [phone] Social History Tobacco Use Types Packs/Day Years [...] Sign Reading Time Taken Comments Blood Pressure 113/82 07/10/2018 3:41 PM CDT Pulse 96 07/10/2018 3:41 PM CDT Temperature - - Respiratory Rate - - Oxygen Saturation - - Inhaled Oxygen Concentration - - Weight - - Height - - Body Mass Index - - documented in this encounter Patient Instructions Patient KevinGillian Harding Jorge - 07/10/2018 3:45 PM CDT Impression: Bilateral occipital neuralgia Myalgia H/O cervical spinal arthrodesis We performed a occipital nerve block today. The numbing medication will last about 12 hours. That should improve or resolve the headache if the occipital nerve is the main pain generator. Though very unlikely, call us if any concerning symptoms of infection including swelling at the sitethat does not resolve, drainage, pain, fevers. Further testing: None Therapies: Regular exercise/activity Medications: No changes Equipment: None Referrals & Procedures (i.e injections): Occipital nerve blocks today Restrictions: We reviewed hurt versus harm We discussed pacing and energy conservation Follow up: As needed If you have any questions or concerns about your visit, symptoms, medication, test results, or it isnot clear what your diagnosis or treatment plan is, please contact me via [employer] online messaging or call the office at and ask to speak to a nurse. Tony Pittman MD Pain Medicine documented in this encounter Progress Notes Tony Pittman MD - 07/10/2018 3:45 PM CDT [facility] Follow-up Visit 07/10/2018 Interim history: Patient returns today for follow up regarding neck and head pain. Trigger point injections at last visit did not provide much substantial relief of pain. She reports increase in neck pain and headacheswith physical therapy since that time. Describes aching and sharp pain to occipital area radiating upwards over the top of her scalp. Increased dose of tizanidine has been somewhat helpful since the patient was last seen. Current treatments include: Oxycodone 5 mg Q6H - Prescribes by [facility], has been taking for many [...] at a pain clinic in the past. [facility] physical therapy: Past Acupuncture: None [...] Pete Gonzalez ??? h/o anterior cervical fusion 2017 Dr. Ihsan Brooke, [facility] past surgical history reviewed with patient. [...] estradiol (VIVELLEDOT) 0.05 MG/24HR biweekly patch ??? Folic Acid 0.8 MG Take 800 [...] ??? medical cannabis patient certified Take 1 [place] by mouth . ??? naloxone (NARCAN) 4 [...] a day. Indications: Antipsychotic Therapy-Induced Weight Gain ??? HYDROmorphone (DILAUDID) 2 MG tablet Take 1-2 Tabs by mouth every 4 hours as needed for Pain. Indications: Moderate to Severe Pain (Patient not taking: Reported on 06/20/2018) 30 Tab 0 No facility-administered medications prior to visit. [place] and [place] Prescription Monitoring Program reviewed Allergies: Allergies Allergen [...] in her mother. Social history:she lives in [place], [place].she is not currently working. Smokin/2 ppd. Alcohol: None. Street drugs: Medical marijuana. Complete ROS were reviewed and are negative except those noted in the history and physical exam. Objective: BP 113/82 Pulse 96 Estimated body mass index is 30.47 kg/(m^2) as calculated from the following: Height as of 02/22/18: 5' (1.524 m). Weight as of 02/22/18: 156 lb (70.8 kg). General: In no apparent distress Mental status: Normal affect, pleasant Head: Atraumatic, normocephalic Eyes: Extra-ocular movements grossly intact, no scleral icterus Cardiovascular: Regular rate Respiratory: No respiratory distress Abdomen: soft, non-distended Msk: Bilateral hips, knees have normal range of motion. Pain with extension and rotation of cervicalspine. cervical spine range of motion extremely limited. Neuro: AAOx3. CN II-XII are grossly intact. At least antigravity strength noted in all 4 extremities Tender to palpation bilateral occiput Skin: No rashes or lesions noted on exposed areas of skin. Extensive tattoos on all exposed skin surfaces. Well-healed surgical incision posterior cervical, thoracic spine Lymph: no supraclavicular lymphadenopathy Imaging: XR CERVICAL [...] of motion given her extensive spinal spinal arthrodesis 3. Cervical vertebral fusion 4. Fibromyalgia 5. Tobacco use disorder (HRC) 6. Status post total left knee replacement 7. 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 Patient education: I went over the above diagnoses and treatment plan with her and answered all of her questions. 2. Imaging review: None 3. Exercise program: Regular exercise and activity 4. Medications: No changes 5. Imaging Orders: None. 6. Interventions: Occipital nerve blocks today Based on history and physical exam, unlikely tumor or mass causing pain 7. Referrals: None 8. Follow up: As needed pending outcome of injection Procedure: bilateral Occipital nerve block Dx: bilateral Occipital [...] sterile technique bharat 25G 1.5 inch needle bupivacaine 0.5% 2ml was injected in a fan like pattern. The needle was removed and the skin was cleaned. The same procedure was completed on the contralateral side. The pt tolerated the procedure well with no complications. ?? No steroids were used in this injection today. Many patients will experience long lasting relief with occipital nerve blocks without the use of steroids. If patient experiences considerable pain reliefwith this injection, but it is short in its duration, then we could consider repeat block with the addition of steroids. ?? Tony Pittman MD Pain Medicine Physical Medicine and Rehabilitation [facility] This document serves as a record of services personally performed by Tony Pittman MD. It was created on his behalf by Gillian Harding, a trained medical support assistant. The creation of this record is based on the scribe's personal observations and the provider's statements to her. The document has been checked and approved by the attending provider. documented in this encounter Plan of Treatment Not on filedocumented as of this encounter Visit Diagnoses Diagnosis Bilateral occipital neuralgia - Primary Myalgia Mylagia and myositis, unspecified H/O cervical spinal arthrodesis Arthrodesis status documented in this encounter Care Teams Pricing Intern Relationship Specialty Start Date End Date Jose Holden MD PCP - General Otolaryngology 12/14/[address] [place], [place] [address] [address] documented as of this encounter
--- OUTSIDE RECORDS SUMMARY | 2022-07-06 14:59 | XMS_ITS | Encounter Summary ---
:1965 Author Organization [facility] Address [address] [facility] [place] [address] Care Team Providers Name Role Phone Unavailable Primary Care Provider Unavailable Encounter Details Date Type Department Care Team Description 04/15/2009 Results Only [facility] Evelio Munoz MD Hospital Results [address] [place] [phone] (Wo rk) Social History Tobacco Use Types Packs/Day Years Used Date Never Assessed Sex Assigned at Date Recorded Not on file documented as of this encounter Plan of Treatment Not on filedocumented as of this encounter Procedures Procedure Name Priority Date/Time Associated Diagnosis Comme nts CT THORACIC Routine 04/15/2009 4:58 PM Results for this SPINE W/O CONTRAST CDT procedure are in the results section. CT LUMBAR SPINE Routine 04/15/2009 4:55 PM Res ults for this WO CONTRAST CDT procedure are i n the results section. documented in this encounter Results CT SCAN DORSAL SPINE (04/15/2009 4:58 PM CDT) Specimen (Source) Anatomical Collection Method Collection Time Re ceived Time Location / / Volume Laterality 04/15/2009 4:58 PM CDT Impressions RADIOLOGY RESULTS - 04/15/2009 6:[address] THORACIC SPINE WITHOUT CONTRAST ??April 15, 2009 4:58:00 PM HISTORY: Increased back pain. Nerve simu lator. Fall/trauma back. TECHNIQUE: ??Transverse images with sagi ttal and coronal reformatted images. FINDINGS: ??Electrostimulator leads appe ar to enter the central canal between the T9 and T10 spinous processes and extend superiorly to the T7-T8 level. Vertebral body heights and sagittal alignment are within normal limits. No compression fractures are noted. Minimal anterior spurring is noted at T7-T8 and T8-T9. IMPRESSION: ??No evidence of thoracic sp ine fracture. Evelio Munoz MD SPECIAL IMAGING STUDIES Performing Organization Address City/[facility] Code Phon e Number RADIOLOGY RESULTS CT SCAN LUMBAR SPINE (04/15/2009 4:55 PM CDT) Specimen (Source) Anatomical Collection Method Collection Time Re ceived Time Location / / Volume Laterality 04/15/2009 4:55 PM CDT Impressions RADIOLOGY RESULTS - 04/15/2009 5:[address] LUMBAR SPINE WITHOUT CONTRAST ??March 282008 4:56:00 PM HISTORY: Increased back pain, nerve simu lator. Fall/trauma back. TECHNIQUE: ??Transverse images with sagi ttal and coronal reformatted images. FINDINGS: There are solid appearing ante rior and posterior fusions at L4-L5 and L5-S1. Vertebral body heights and sagittal alignment are within normal limits. Right upper quadra nt probable cholecystectomy clips are incidentally noted. T12-L1, L1-L2: No disc bulge or focal di sc herniation. No central or foraminal stenosis. L2-L3: Mild bulge of the disc annulus wi th no focal disc herniation or central stenosis. Mild foraminal narrowi ng is noted below the exiting nerve roots bilaterally. L3-L4: Generalized disc bulge without si gnificant central stenosis or focal disc herniation. Lateral annular b ulging results in mild bilateral foraminal stenosis below the e xiting nerve roots. L4-L5 and L5-S1: Anterior and posterior fusions with posterior decompression. There is no central steno sis, and the neural foramina appear to be widely patent bilaterally. IMPRESSION: ? 1. Solid appearing anterior and posterio r fusions at L4-L5 and L5-S1. 2. Apophyseal joint degenerative changes bilaterally at L3-L4. 3. Mild annular bulging bilaterally at L 2-L3 and L3-L4 mildly narrowing the neural foramina below the exiting nerve roots bilaterally. Evelio Munoz MD SPECIAL IMAGING STUDIES Performing Organization Address [facility] Code Phon e Number RADIOLOGY RESULTS documented in this encounter Visit Diagnoses Not on filedocumented in this encounter
--- OUTSIDE RECORDS SUMMARY | 2022-07-06 14:59 | XMS_ITS | Encounter Summary ---
:1965 Author Organization [facility] Address [address] [place] [address] Care Team Providers Name Role Phone Jose Holden MD Primary Care Provider [phone] Encounter Details Date Type Department Care Team Description 03/06/2019 Consent for [facility] Procedure[facility]Treat [facility] Tony Alvarado MD [facility] Pain Management [address] TREATMENT [address] [place] [id number] Social History Tobacco Use Types Packs/Day Years [...] on filedocumented in this encounter Care Teams Gullet Slitter Relationship Specialty Start Date End Date Jose Holden MD PCP - General Otolaryngology 12/14/[address] [place] [address] documented as of this encounter
--- OUTSIDE RECORDS SUMMARY | 2022-07-06 14:59 | XMS_ITS | Encounter Summary ---
:1965 Author Organization [facility] Address [address], [place] [address] Care Team Providers Name Role Phone Jose Holden MD Primary Care Provider [phone] Reason for Visit Reason Comments Revisit Encounter Details Date Type Department Care Team Description 08/14/2018 Office Visit [facility] Pete Gonzalez, Neck pain ([facility] MD Dx) Neurosurgery/Ortho [address] [facility] [address] [facility] [place], [place] [address] [address] [phone] Social History Tobacco Use Types Packs/Day Years [...] Sign Reading Time Taken Comments Blood Pressure 112/75 08/14/2018 2:33 PM CDT Pulse 68 08/14/2018 2:33 PM CDT Temperature - - Respiratory Rate 13 08/14/2018 2:33 PM CDT Oxygen Saturation - - Inhaled Oxygen Concentration - - Weight - - Height - - Body Mass Index - - documented in this encounter Patient Instructions Patient InstructionsChava Simon RN - 08/14/2018 1:00 PM CDT Neurosurgery Center Patient Instructions Tests: You will be scheduled for a(n) trigger point injections with Dr. Pittman at our Same Day Surgery center (4th floor [address], [place]).prior to your next appointment. Follow up: with Sirisha Maher APRN, CNP in August 2018 for 6 month cervical fusion follow up appointment. If tests were ordered, they will be reviewed at your next office visit. Please allow 10-14 days for forms to be completed and 2-3 business days for medication refills to beaddressed. If you have a change in your insurance plans, please notify the clinic so we can update our records.If we have incorrect insurance information, it can cause delays in clinic appointments and surgeries. Because we are a Level 1 Trauma Center and employ exceptional surgical staff, occasionally our surgeons must respond to hospital emergencies. This may delay the clinic or cause us to reschedule appointments. We make every attempt to limit these disruptions to you and ask for your understanding. Please call the Neurosurgery Center [phone] with any further questions or concerns or if your symptoms worsen. Thank you for coming to see us today. We are your partner. documented in this encounter Progress Notes Pete Gonzalez MD - 08/14/2018 1:00 PM CDT Neck pain This is a 53-year-old woman who underwent extensive posterior revision fusion given pseudoarthrosis and adjacent level degeneration from her previous surgery at an outside hospital. I saw the patient last time for muscle spasms and cramping along the paraspinal muscles which responded partially to trigger point injections. There is a focal area on the left suboccipital region that causes her significant pain but it is tolerable. We have agreed to another round of conservative treatment with trigger point injections. The patient also has good upper extremity movements that is stable. Her posterior incision is well-healed. She also discussed lumbar issues. The patient has had multiple spinal cord sti mulators in the past as well as fusion surgery. She has an area of degenerative disc disease from L1to L4 with L3 L4 being the most significant level of degenerative disc disease. At this time the patient is pursuing a trial for spinal cord stimulator and does not want to pursue surgical management. I believe this was reasonable. The patient and no further questions and will see us for continued follow up of her cervical spine revision fusion. Total patient care time including face to face time was 25 minutes and greater than 50% of the timewas spent counseling and coordinating care. Voice recognition software was used for this statement, which is prone to typos and grammatical errors. documented in this encounter Plan of Treatment Not on filedocumented as of this encounter Visit Diagnoses Diagnosis Neck pain - Primary Cervicalgia documented in this encounter Care Teams Rn Internal Medicine Relationship Specialty Start Date End Date Jose Holden MD PCP - General Otolaryngology 12/14/[address] [facility] [place] [address] documented as of this encounter
--- OUTSIDE RECORDS SUMMARY | 2022-07-06 14:59 | XMS_ITS | Encounter Summary ---
:1965 [facility] Address [address] [place] [address] Care Team Providers Name Role Phone Jose Holden MD Primary Care Provider [phone] Reason for Visit Reason Comments Medication Request Encounter Details Date Type Department Care Team Description 12/08/2019 Telephone Careline Unknown, Physician Medication Request [address] [place], [place] [address] [place], [place] [phone] (Wo rk) Social History Tobacco Use Types Packs/Day Years Used Date Smoking Tobacco: Every Day Cigarettes 0.5 30 Smokeless Tobacco: Never Comments: 30 year smoker on and off, 0.5 a day Alcohol Use Standard Drinks/Week Comments No 0 (1 standard drink = 0.6 oz pure alcoho l) Sex Assigned at Date Recorded Not on file documented as of this encounter Nursing Notes Amna Way - 12/08/2019 12:48 PM CST Pt was looking for a different pain medication. 

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
--- OUTSIDE RECORDS SUMMARY | 2022-07-06 14:59 | XMS_ITS | Encounter Summary ---
:1965 Author Organization [facility] Address [address] [address] Care Team Providers Name Role Phone Jose Holden MD Primary Care Provider [phone] Reason for Visit Procedure/Equipment (Routine) - Incomplete Specialty Diagnoses / Procedures Referred By Contact Refer red To Contact Diagnoses S/P cervical spinal fusion Sirisha Rankin, Procedures XR Cervical Spine AP/Lat Upright CONVERSION WORKER, SET UP MOLD TECHNICIAN [address] [place] [address] Referral ID Status Reason Start Date Expiration Date Visits V isits Requested Authorized [id number] Incomplete 10/10/2018 01/09/2020 1 1 Encounter Details Date Type Department Care Team Description 12/26/2018 Ancillary [facility] Sneha Maher, S/P cervi france Procedure [facility] Sirisha Celaya, CONVERSION WORKER, spinal fusion Radiology SET UP MOLD TECHNICIAN [address] [place] [address] [place], [place] [phone] [facility] Social History Tobacco Use Types Packs/Day Years [...] Priority Date/Time Associated Diagnosis Comme nts XR CERVICAL SPINE Routine 12/26/2018 1:44 PM S/P cervical spin al Results for this AP/LAT UPRIGHT DIRECTOR SPORTS fusion procedure are in the results section. documented in this encounter Results XR Cervical Spine AP/Lat Upright (12/26/2018 1:44 PM DIRECTOR SPORTS) Anatomical Region Laterality Modality Spine, C-Spine, Neck Computed Radiograph y Specimen (Source) Anatomical Collection Method Collection Time Re ceived Time Location / / Volume Laterality 12/26/2018 1:44 PM DIRECTOR SPORTS Narrative 12/26/2018 3:41 PM DIRECTOR SPORTS EXAM: XR CERVICAL SPINE AP/LAT UPRIGHT LOCATION: [facility] DATE/TIME: 12/26/2018 1:44 PM INDICATION: Follow-up post cervical fusi on. COMPARISON: X-ray 06/14/[address] cervi france spine 11/10/2018. FINDINGS: Unchanged cervical alignment a nd vertebral body heights. Posterior fusion construct extending from C2 through T3 similar to the prior exam. No definite hardware failure or loosening. Solid int erbody fusion from C3 through T1. Please note that multiple ear rings degrade evaluation of the C1-2 level on lateral view. Procedure Note Evelio Degroot MD - 12/26/2018Formatt ing of this note might be different from the original. EXAM: XR CERVICAL SPINE AP/LAT UPRIGHT LOCATION: [facility] DATE/TIME: 12/26/2018 1:44 PM INDICATION: Follow-up post cervical fusi on. COMPARISON: X-ray 06/14/[address] cervi france spine 11/10/2018. FINDINGS: Unchanged cervical alignment a nd vertebral body heights. Posterior fusion construct extending from C2 through T3 similar to the prior exam. No definite hardware failure or loosening. Solid interbody fusion from C3 through T1. Please note t hat multiple ear rings degrade evaluation of the C1-2 level on lateral view. Sirisha Maher CONVERSION WORKER, SET UP MOLD TECHNICIAN RAD GD documented in this encounter Visit Diagnoses Diagnosis S/P cervical spinal fusion Arthrodesis status documented in this encounter Care Teams Remanufacturing Technician Relationship Specialty Start Date End Date Jose Holden MD PCP - General Otolaryngology 12/14/[address] [place] [address] documented as of this encounter
--- OUTSIDE RECORDS SUMMARY | 2022-07-06 14:59 | XMS_ITS | Encounter Summary ---
:1965 [facility] Address [address] [address] Care Team Providers Name Role Phone Jose Holden MD Primary Care Provider [phone] Encounter Details Date Type Department Care Team Description 11/10/2018 Emergency Room External to External, Provid er FALL/HEADACHE NECK LT No address [place] [address] Social History Tobacco Use Types Packs/Day Years [...] on filedocumented in this encounter Care Teams Supervisor Filtration Relationship Specialty Start Date End Date Jose Holden MD PCP - General Otolaryngology 12/14/17 [place] [address] documented as of this encounter
--- OUTSIDE RECORDS SUMMARY | 2022-07-06 14:59 | XMS_ITS | Encounter Summary ---
:1965 Author Organization [facility] Address [address] [place] [address] Care Team Providers Name Role Phone Jose Holden MD Primary Care Provider [phone] Reason for Visit Reason Comments Revisit repeat injections Occipital VS Trigger point Encounter Details Date Type Department Care Team Description 02/06/2019 [facility] Visit [facility], Bilateral occ ipital neuralgia (Primary Dx); [facility] Carole Bowden Myalgia; Pain Management [address] Fibromyalgia; [address] [place], [place] Cervical vertebral fusion; [place] [phone] Spondylosis of cervical region without m yelopathy or radiculopathy [phone] Social History Tobacco Use Types Packs/Day Years [...] Sign Reading Time Taken Comments Blood Pressure 110/65 02/06/2019 2:39 PM CDT Pulse 67 02/06/2019 2:39 PM CDT Temperature - - Respiratory Rate - - Oxygen Saturation - - Inhaled Oxygen Concentration - - Weight - - Height - - Body Mass Index - - documented in this encounter Patient Instructions Patient InstructionsKiTony leslie MD - 02/06/2019 2:30 PM CDT Impression: Angie was seen today for revisit. Diagnoses and all orders for this visit: Bilateral occipital neuralgia Myalgia - baclofen (LIORESAL) 10 MG tablet; Take 1 Tablet by mouth three times a day as needed. Fibromyalgia Cervical vertebral fusion Spondylosis of cervical region without myelopathy or radiculopathy (HRC) Further testing: None Therapies: Regular exercise/activity Medications: Discontinue zanaflex Trial baclofen Equipment: None Referrals & Procedures (i.e injections): We performed a occipital nerve block today. The numbing medication will last about 12 hours. That should improve or resolve the headache if the occipital nerve is the main pain generator. Though very unlikely, call us if any concerning symptoms of infection including swelling at the sitethat does not resolve, drainage, pain, fevers. Restrictions: We reviewed hurt versus harm We discussed pacing and energy conservation Follow up: 6-8 weeks, as needed sooner If you have any questions or concerns about your visit, symptoms, medication, test results, or it isnot clear what your diagnosis or treatment plan is, please contact me via trivago online messaging or call the office at and ask to speak to a nurse. Tony Pittman MD Pain Medicine documented in this encounter Progress Notes Tony Pittman MD - 02/06/2019 2:30 PM CDT [facility] Follow-up Visit 02/06/2019 Interim history: Patient last seen 12/26 and had both trigger point injection and occipital nerve block. She found that both of the injections together helps the best. This pain relief lasted for 1 month before startingto wear off. She wants to have repeat injection today She is now unsure of the benefit of zanaflex. It seemed to help well at first, but now benefit has waned. Also notes that it makes her feel sedated. Therefore has not been taking it. Current treatments include: Oxycodone 5 mg Q6H - Prescribes by [facility], has been taking for many years. Reports that she was previously on a much higher doses Medical Marijuana Lyrica 600 mg total per day Original Subjective: 53 y.o. female with past [...] at a pain clinic in the past. [facility] physical therapy: Past Acupuncture: None [...] anterior cervical fusion 2017 Dr. Ihsan Brooke, [facility] past surgical history reviewed with patient. [...] ??? medical cannabis patient certified Take 1 [place] by mouth . ??? naloxone (NARCAN) 4 [...] Gain No facility-administered medications prior to visit. [place] and [place] Prescription Monitoring Program reviewed Allergies: Allergies Allergen [...] in her mother. Social history:she lives in [place], [place].she is not currently working. Smokin/2 ppd. Alcohol: None. Street drugs: Medical marijuana. Complete ROS were reviewed and are negative except those noted in the history and physical exam. Objective: BP 110/65 Pulse 67 Estimated body mass index is 30.66 kg/m?? as calculated from the following: Height as of 12/26/18: 5' (1.524 m). Weight as of 12/26/18: 157 lb (71.2 kg). General: In no apparent distress Mental status: Normal affect, pleasant Head: Atraumatic, normocephalic Eyes: Extra-ocular movements grossly intact, no scleral icterus Cardiovascular: Regular rate Respiratory: No respiratory distress Abdomen: soft, non-distended Msk: Cervical spine range of motion extremely limited. Significant posterior surgical deformity of neck. Tender to palpation bilateral levator scapulae, splenius, trapezius Neuro: AAOx3. CN II-XII are grossly intact. At least antigravity strength noted in all 4 extremities Tender to palpation bilateral suboccipital areas. Skin: No rashes or lesions on exposed areas of skin. Extensive tattoos and piercing. Well healed vertical posterior cervical spine scar [...] spinal arthrodesis. Recommend repeat trigger point injections today. Discontinue zanaflex. Trial baclofen. 3. Cervical vertebral fusion 4. Fibromyalgia 5. Tobacco use disorder (HRC) 6. Status post total left knee replacement 7. Occipital neuralgia: Repeat of occipital nerve block today 8. Traumatic brain injury: Patient experiencing symptoms consistent with mild to moderate traumatic brain injury. These are unchanged from previous. 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 Patient education: I went over the above diagnoses and treatment plan with her and answered all of her questions. 2. Imaging review: None 3. Exercise program: Regular exercise and activity 4. Medications: discontinue zanaflex. Trial baclofen 5. Imaging Orders: None. 6. Interventions: Occipital [...] 4. Left splenius 1 mL 5. Right rhomboid minor 1 mL 6. Left rhomboid minor 1 mL Total volume injected: 6 ml of ropivacaine 0.5% The patient tolerated the procedure well without complications. ?? Tony Pittman MD Pain Medicine Physical Medicine and Rehabilitation Critical access hospital Pain Management This note created using speech-recognition software and may contain unintended word substitutions. documented in this encounter Plan of Treatment Not on filedocumented as of this encounter Visit Diagnoses Diagnosis Bilateral occipital neuralgia - Primary Myalgia Mylagia and myositis, unspecified Fibromyalgia Mylagia and myositis, unspecified Cervical vertebral fusion Klippel-Feil syndrome Spondylosis of cervical region without m yelopathy or radiculopathy (HRC) Cervical spondylosis without myelopathy documented in this encounter Care Teams Rn Tele Relationship Specialty Start Date End Date Jose Holden MD PCP - General Otolaryngology 12/14/[address] [place] [id number] documented as of this encounter
--- OUTSIDE RECORDS SUMMARY | 2022-07-06 14:59 | XMS_ITS | Encounter Summary ---
:1965 Author Organization [facility] Address [address] [facility] [place] [address] Care Team Providers Name Role Phone Unavailable Primary Care Provider Unavailable Encounter Details Date Type Department Care Team Description 04/15/[address] [facility] Evelio Lamar MD Hospital Results [address] [place] [phone] (Wo rk) Social History Tobacco Use Types Packs/Day Years Used Date Never Assessed Sex Assigned at Date Recorded Not on file documented as of this encounter Progress Notes Evelio Lamar - 05/01/2009 11:11 AM CDT FINAL CHIEF COMPLAINT: Back pain from fall, headache, vomiting. HISTORY OF PRESENT ILLNESS: This is a 43-year-old female who states that she developed increased back pain after attempting to help her son lift a 500 pound tool box onto a truck. This occurred two days ago. She fell as a result of this attempt, landing on her back. The patient states that since thattime she has had increased back pain, right knee pain and headache. She has been vomiting. She states that she has uncontrollable pain and cannot sleep. The patient states that she has been vomiting more after eating. She has prescriptions for OxyContin and oxycodone. She states that her pain clinic in [place] gave her new prescriptions to be filled on 04/08 which she has done here. She states that the pharmacy here gave her oxycodone instead of the Endocet that she has had previous and that this chalky round pill makes her feel more nauseated. MEDICATIONS: Lamictal, Prozac, Jacy, Zofran, Wellbutrin, Juvia, Percocet and OxyContin, which she states she does not take because it makes her nauseated. ALLERGIES: Ceclor, penicillin and acyclovir. PAST MEDICAL HISTORY: Chronic back pain, knee replacement and gastric bypass. The patient in December had a nerve stimulator implanted for chronic back pain. SOCIAL HISTORY: The patient lives in [place]. Her primary care physician is Dr. Holley De La Rosa in [place], [place]. Her chronic pain doctor is Dr. Garcia at [facility] in [place]. Thepatient has had previous cervical and lumbar spinal fusions. REVIEW OF SYSTEMS: GENERAL: No fevers, chills. RESPIRATORY: Denies shortness of breath or cough. CARDIOVASCULAR: Denies palpitations, tachycardia or chest pains. GASTROINTESTINAL: No abdominal pain, does have vomiting. GENITOURINARY: No stooling pattern changes. NEUROLOGIC: The patient denies numbness, tingling or weakness of the extremities and denies incontinence of bowel or bladder. Remainder of review of systems is negative. PHYSICAL EXAMINATION: VITAL SIGNS: Temperature 97.9, pulse 97, respirations 18, blood pressure 126/80, pulse oximetry 100% on room air. GENERAL: Alert female with multiple tattoos. HEENT: Eyes: Pupils are equal, round and reactive to light. Ears, nose and throat: External auditory canals and tympanic membranes are clear. Nose is patent without discharge. Oral mucous membranes are moist. CARDIOVASCULAR: Regular rate and rhythm, normal S1 and S2. RESPIRATORY: Breath sounds equal, clear. GASTROINTESTINAL: Abdomen is soft, mild tenderness in the epigastrium without guarding or rebound. INTEGUMENT: Covered with tattoos, no discernable rashes. MUSCULOSKELETAL: The patient complains of increase in her thoracic back pain around the nerve stimulator patch approximately T8. She also complains of lumbar pain. Incisions are well-healed, no fluctuance, drainage or erythema. NEUROLOGIC: Alert and oriented. Cranial nerves II-XII are intact. Deep tendon reflexes 2+ downgoing toes. Motor and sensory exams are intact. EMERGENCY DEPARTMENT COURSE: The patient was given 1 liter of normal saline IV. She was given two separate 2 mg increments of Dilaudid and 2 doses of 4 mg of Zofran IV each. I did speak with Dr. Torres the [place] [facility] who review her records with me and suggested that because of the history of trauma, we get CTs of the thoracic and lumbar spines to look for new fractures or displacement of the nerve stimulator. The CT scans are interpreted by Dr. Barber and thoracic spine report impression is no evidence for thoracic fracture. Nerve stimulator is present at T9-T10. The lumbar spine report reveals a solid appearing anterior and posterior fusions at L4-5 and L5-S1, apophyseal joint degenerative changes bilaterally at L3-4 and mild annular bulge bilaterally L2-3 and L3-4 with mild narrowing of the neural foramen below the exiting nerve roots bilaterally. When I rechecked the patient at 1815 hours, her nausea was better. She is able to get up and ambulate in the Emergency Department, able to take fluids. Dr. De Leon had told me that the patient had new prescriptions for OxyContin and oxycodone which werefilled on 04/08/2009. The patient has these prescriptions. Her complaint is primarily nausea. PLAN: I will give her prescription for Compazine. I gave her referral information for [facility] if she has further problems while she was in [place]. She plans to be here another 1-2 weeks. DISCHARGE DIAGNOSES: 1. Acute exacerbation of chronic back pains. 2. Nausea. Electronically signed on 05/01/2009 06:49 by EVELIO LAMAR MD MT: [id number] Name: KAYLIN MOSQUERA MRN: [id number] Account: [id number] : 1965 Visit Date: 04/15/2009 Document: [id number] cc: cO De La Rosa MD documented in this encounter Plan of Treatment Not on filedocumented as of this encounter Visit Diagnoses Not on filedocumented in this encounter
--- OUTSIDE RECORDS SUMMARY | 2022-07-06 14:59 | XMS_ITS | Encounter Summary ---
:1965 Author Organization [facility] Address [address] [place] [address] Care Team Providers Name Role Phone Jose Holden MD Primary Care Provider Encounter Details Date Type Department Care Team Description 06/29/2018 [facility]ent for [facility] Tony Alvarado MD FOR TX/PROCEDURE ent Pain Management [address] [place] [id number] Social History Tobacco Use Types Packs/Day Years [...] on filedocumented in this encounter Care Teams Wire Brush Operator Relationship Specialty Start Date End Date Jose Holden MD PCP - General Otolaryngology 12/14/[address] [place], [place] [phone] documented as of this encounter
--- OUTSIDE RECORDS SUMMARY | 2022-07-06 14:59 | XMS_ITS | Encounter Summary ---
:1965 Author Organization [facility] Address [address] [address] Care Team Providers Name Role Phone Jose Holden MD Primary Care Provider [phone] Reason for Referral Therapies (Routine) - Closed Specialty Diagnoses / Procedures Referred By Contact Refer red To Contact Diagnoses S/P cervical spinal fusion Pete Gonzalez MD [address] [place] [id number] Referral ID Status Reason Start Date Expiration Date Visits Requ ested Visits Authorized [id number] Closed 08/16/2018 10/15/2018 1 1 [facility] has recommended an appoin tment with a [facility] Physical Therapist. Please stop at the clinic check out desk for assistance with scheduling or if you prefer to call for your appointment you may call [facility] Outpatient Rehabilitation at [phone]. We suggest you call your [facility] insurance company about your coverage and benefits for this appointment. Encounter Details Date Type Department Care Team Description 07/07/2018 Telephone [facility] Neuroscience Pete Gonzalez MD Center Neurosurgery/Ortho [address] [facility] [place], [place] [address] [address] [place] [address] [phone] Social History Tobacco Use Types Packs/Day Years Used Date Smoking Tobacco: Every Day Cigarettes 0.5 30 Smokeless Tobacco: Never Comments: 30 year smoker on and off, 0.5 a day Alcohol Use Standard Drinks/Week Comments No 0 (1 standard drink = 0.6 oz pure alcoho l) Sex Assigned at Date Recorded Not on file documented as of this encounter Nursing Notes Gracy Del Toro - 08/16/2018 1:41 PM CDT Traveling Buyer contacted patient 08/16-faxed order to [facility] [phone] per patient request hCava Simon RN - 08/16/2018 1:[address] Gonzalez: patient okay to do PT. No need for CT at this time. Verbal read back done and orders placed. Rachid: please call patient and assist with scheduling PT. Chava Simon RN 08/16/2018, 1:12 PM Chava Simon RN - 08/14/2018 3:58 PM CDT Patient following up on 09/13/2018 for 6 month s/p cervical fusion. Team, please review and advise if patient can begin physical therapy and does the patient need any imaging prior to appointment? CT or XR? Chava Simon RN 08/14/2018, 3:59 PM documented in this encounter Plan of Treatment Scheduled Referrals Name Type Priority Associated Diagnoses [facility] Referral Routine S/P cervical spinal fusi on Ordered: 08/16/2018 documented as of this encounter Visit Diagnoses Diagnosis S/P cervical spinal fusion - Primary Arthrodesis status documented in this encounter Care Teams Coke Handling Supervisor Relationship Specialty Start Date End Date Jose Holden MD PCP - General Otolaryngology 12/14/17 [place] [address] documented as of this encounter
--- OUTSIDE RECORDS SUMMARY | 2022-07-06 14:59 | XMS_ITS | Encounter Summary ---
:1965 Author Organization [place] Address [address] [place] [address] Care Team Providers Name Role Phone Amna Fletcher Primary Care Provider Reason for Visit Reason Comments Chest Wall Pain Encounter Details Date Type Department Care Team Description [facility]18[facility]2016 [facility], [facility]; [facility] Emergency [facility] phuong Ross MD Closed fracture of rib of right side, in itial encounter [address] [facility] [place], [place] [id number] [address] [facility] [address] [place] [address] (Wo rk) Social History Tobacco Use Types Packs/Day Years Used Date Never Assessed Sex Assigned at Date Recorded Not on file documented as of this encounter Last Filed Vital Signs Vital Sign Reading Time Taken Comments Blood Pressure 113/81 07/18/2016 3:00 AM CDT Pulse 80 07/18/2016 3:00 AM CDT Temperature 36.8 ??C (98.2 ??F) 07/18/2016 12:49 AM CDT Respiratory Rate 20 07/18/2016 3:00 AM CDT Oxygen Saturation 100% 07/18/2016 3:00 AM CDT Inhaled Oxygen Concentration - - Weight 60.8 kg (134 lb) 07/18/2016 12:49 AM CDT Height 154.9 cm (5' 1) 07/18/2016 12:49 AM CDT Body Mass Index 25.32 07/18/2016 12:49 AM CDT documented in this encounter Discharge Instructions Discharge InstructionsRadha Espana MD - 07/18/2016 2:23 AM CDT Images from the original note were not included. Rib Fracture You have a fracture (break) of one or more ribs. Rib fractures do not require a cast like other bones. They will heal by themselves in about 4-6 weeks. The first 3-4 weeks will be the most painful because deep breathing, coughing or changing position from sitting to lying down, may cause the broken ends to move slightly. Home Care: ?? Rest. You should not be doing any heavy lifting or strenuous exertion until the pain goes away. ?? Because it hurts to breathe when you have a broken rib, there is risk of getting pneumonia from poor airflow through your lungs. To prevent this: ?? Take four very deep breaths at least four times a day (exhale through pursed lips as if you are blowing up a balloon). ?? If an incentive spirometer (breathing exercise device) was given to you, use it at least four times a day, or as directed. ?? Apply an ice pack (ice cubes in a plastic bag, wrapped in a towel) over the injured area for 20 minutes every 1-2 hours the first day. Continue with ice packs 3-4 times a day for the next two days, then as needed for the relief of pain and swelling. ?? You may use acetaminophen (Tylenol) or ibuprofen (Motrin, Advil) to control pain, unless another pain medicine was prescribed. [NOTE: If you have chronic liver or kidney disease or ever had a stomach ulcer or GI bleeding, talk with your doctor before using these medicines.] ?? If your pain is not controlled by the treatment given, contact your doctor. Sometimes a stronger pain medicine may be needed. A nerve block (numbing the nerve between the ribs) can be performed in case of severe pain. Follow Up with your doctor during the next week, or as advised. Rarely, a broken rib will cause complications within the first few days that may not be evident during your initial exam (such as, collapsed lung, bleeding around the lung or into the abdomen, or pneumonia). Therefore, watch for the signs below. [NOTE: If x-rays were taken, they will be reviewed by a radiologist. You will be notified of any newfindings that may affect your care.] Get Prompt Medical Attention if any of the following occur: ?? Shortness of breath ?? Increasing chest pain with breathing ?? Dizziness, weakness or fainting ?? New or worsening abdominal pain ?? Fever of 100.4??F (38??C) or higher, or as directed by your healthcare provider ?? Congested cough ?? [id number] [employer]. [address] [place] [address]. All rights reserved. This information is not intended as a substitute for professional medical care. Always follow your healthcare professional's instructions. AttachmentsThe following attachments cannot be sent through Care Everywhere.BONE BRUISE (BONE CONTUSION), UNDERSTANDING (TURKMEN)documented in this encounter Medications at Time of [...] Take 150 mg by mouth 0 daily lidocaine (LIDODERM) 5 % Place 1 patch onto 10 patch 0 07/28/2016 patch the skin every 24 hours for 10 days Omeprazole (PRILOSEC PO) 0 10/14/2017 OXYCODONE HCL PO 0 05/17/20 17 documented as of this encounter ED Notes Myesha Lewis RN - 07/18/2016 3:26 AM CDT at bedside. Myesha Lewis RN - 07/18/2016 3:22 AM CDT Pt given rx for discharge; states MD promised her valium for dc; MD consulted; states pt may not have valium but may have flexeril or robaxin rx; pt refuses and states she wants the medication for sleep and anxiety not for pain; states she wants MD; updated. Myesha Lewis RN - 07/18/2016 3:15 AM CDT Pt alert, speech clear, gait steady now; states awake enough to go home now; awaiting discharge. Myesha Lewis RN - 07/18/2016 3:00 AM CDT Pt resting in bed, pt gown down around waist and naked from waist up; pt speech slightly slurred andappears drowsy, patient assisted back into gown; pt reports no relief of pain; MD updated on condition; nurse to watch patient for a little longer until more awake. No other orders given Radha Espana MD - 07/18/2016 12:56 AM CDT History Chief Complaint: Chest Wall Pain HPI Angie Mosquera is a 51 year old female with history significant for fibromyalgia and osteoporosis who presents with chest wall pain. The patient tripped and fell forward into a countertop two days prior while in her kitchen. She has experienced worsening pain and shortness of breath secondary to thepain since that time making it difficult to sleep. She was unable to fall asleep this evening prompting her visit to the emergency department. Currently she rates her pain at 10/10 in severity. She does note hitting her head during the fall but did not lose consciousness. Patient notes prior rib fractures of unknown etiology in the remote past. She denies any hemoptysis, nausea, vomiting, dizziness, lightheadedness, or other complaints. She has been taking her typical Oxycodone and Tylenol for pain.She has not taken antiinflammatories due to past gastric bypass. 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 No pertinent family history. Social History: Presents with boyfriend Tobacco use: Positive Alcohol use: Positive Marital Status: Review of Systems Respiratory: Positive for shortness of breath. Neg hemoptysis Cardiovascular: Positive for chest pain. Gastrointestinal: Negative for nausea and vomiting. Neurological: Negative for dizziness and light-headedness. All other systems reviewed and are negative. Physical Exam First Vitals: BP: 94/71 mmHg Pulse: 77 Temp: 98.2 ??F (36.8 ??C) Resp: 18 Height: 154.9 cm (5' 1) Weight: 60.782 kg (134 lb) SpO2: 97 % Physical Exam General: Adult female sitting upright. Eyes: PERRL, Conjunctive within normal limits ENT: Moist mucous membranes, oropharynx clear. CV: Normal S1S2, no murmur, rub or gallop. Regular rate and rhythm Resp: Clear to auscultation bilaterally, no wheezes, rales or rhonchi. Normal respiratory effort. GI: Abdomen is soft, nontender and nondistended. No palpable masses. No rebound or guarding. MSK: No edema. Normal active range of motion. Tender over mid sternum without palpable crepitus, edema, or bony deformity. Mildly tender over the right posterior mid rib region without palpable crepitus or bony deformity. Skin: Warm and dry. No rashes or lesions or ecchymoses on visible skin. Neuro: Alert and oriented. Responds appropriately to all questions and commands. No focal findings appreciated. Normal muscle tone. Psych: Normal mood and affect. Pleasant. Emergency Department Course ECG (01:17:19): Rate 69 bpm. VA interval 176. QRS duration 94. QT/QTc 408/437. P-R-T axes 52 -5 25. Normal sinus rhythm. Normal ECG. Interpreted at 0125 by Radha Espana MD. Imaging: Radiographic findings were communicated with the patient who voiced understanding of the findings. XR Chest: IMPRESSION: 1. A small focal convexity in the anterior cortex of the mid sternum. This is not diagnostic of an acute fracture, but a nondisplaced acute fracture cannot be excluded. 2. Acute-appearing fracture of the posterolateral aspect of the right seventh rib. 3. The lungs are clear. No pneumothorax. MURRAY ROGERS MD Preliminary result per radiology. Interventions: Medications lidocaine (LIDODERM) patch REMOVAL (not administered) lidocaine (LIDODERM) Patch in Place (not administered) oxyCODONE (ROXICODONE) immediate release tablet 10 mg (10 mg Oral Given 07/18/16115) diazepam (VALIUM) tablet 5 mg (5 mg Oral Given 07/18/16115) HYDROmorphone (DILAUDID) injection 1 mg (1 mg Intramuscular Given 07/18/16209) lidocaine (LIDODERM) 5 % patch 2 patch (2 patches Transdermal Given 07/18/16214) 0116: Roxicodone 10 mg PO 0116: Valium 5 mg PO 0210: Dilaudid 1 mg IM 0215: Lidoderm 2 patches transdermal The patient's symptoms were improved with parenteral narcotics and benzodiazapines. Emergency Department Course: Past medical records, nursing notes, and vitals reviewed. 0103: I performed an exam of the patient and obtained history, as documented above. EKG obtained. The patient was sent for a XR while in the emergency department, findings above. Patient reassessed. Appears sleepy. Notes she is still in pain. 0229: I rechecked the patient. She is feeling more comfortable. Findings and plan explained to the Patient and significant other. Patient discharged home with instructions regarding supportive care, medications, and reasons to return. The importance of close follow-up was reviewed. Impression & Plan Medical Decision Making: Angie Mosquera is a 51 year old female with history of chronic pain who presents to the emergency room with concerns for pain over her sternum after falling into a counter. She does report she hit her head as well however has no headache and denies any symptoms related to that without loss of consciousness. My examination reveals tenderness to right posterior rib and she does have evidence of likely fracture of that rib. She has evidence of likely sternal contusion. I do not think she probably hasfracture although that cannot be entirely excluded and do not think it would change my management atthis time. She is difficult to manage given her history of chronic pain however did have improvementin the emergency department. I feel comfortable discharging her home as she is hemodynamically stable with no evidence of cardiac contusion or vascular abnormality. She has oxycodone at home that she can continue to use for pain, and unfortunately, has a contraindication to NSAID use. She can follow up with PCP in 3-5 days for reassessment and if she has ongoing pain control needs. I recommended she return immediately to the emergency department should she develop any worsening symptoms, coughing upblood, uncontrolled pain, or any other symptoms of concern to her. All questions were answered and she was discharged home in improved condition. Diagnosis: ICD-10-CM 1. Sternal contusion, initial encounter S20.20XA 2. Closed fracture of rib of right side, initial encounter S22.31XA Disposition: Discharged to home with medication as below. Discharge Medications: New Prescriptions LIDOCAINE (LIDODERM) 5 % PATCH Place 1 patch onto the skin every 24 hours for 10 days Adrian Vera 07/18/2016 [facility] EMERGENCY DEPARTMENT IAdrian am serving as a scribe at 1:03 AM on 07/18/2016 to document services personally performed by Radha Espana MD based on my observations and the provider's statements to me. Radha Espana MD 07/18/16 [id number] Renea Conn, RADHA - 07/18/2016 12:48 AM CDT Pt fell against a counter 2 days ago Has been having Chest pain And unable to sleep Rates pain at this time 09/06 Here for eval documented in this encounter Plan of Treatment Not on filedocumented as of this encounter Procedures Procedure Name Priority Date/Time Associated Diagnosis Comme nts XR CHEST 2 VW STAT 07/18/2016 1:36 AM Results for this CDT procedure are i n the results section. EKG 12-LEAD, STAT 07/18/2016 1:17 AM Results f or this TRACING ONLY CDT procedure are i n the results section. documented in this encounter Results Chest XR, PA & LAT (07/18/2016 1:36 AM CDT) Anatomical Region Laterality Modality Chest Computed Radiography Specimen (Source) Anatomical Location Collection Method / Collectio n Time Received Time / Laterality Volume Impressions 07/18/2016 2:11 AM CDT IMPRESSION: 1. A small focal convexity in the anteri or cortex of the mid sternum. This is not diagnostic of an acute fract ure, but a nondisplaced acute fracture cannot be excluded. 2. Acute-appearing fracture of the poste rolateral aspect of the right seventh rib. 3. The lungs are clear. No pneumothorax. MURRAY ROGERS MD Narrative 07/18/2016 2:11 AM CDT CHEST 2 VIEWS ?? 07/18/2016 1:36 AM HISTORY: Sternal trauma. Pain. COMPARISON: None. FINDINGS: The lungs are clear. Normal si zed cardiac silhouette. No pneumothorax. Acute-appearing fracture o f the posterolateral aspect of the right seventh rib. A small focal con vexity in the anterior cortex of the mid sternum. Partial visualizatio n of fusion hardware in the lower cervical spine. Surgical clips in the upper right hemiabdomen likely relate to prior cholecystectomy. Procedure Note Murray Rogers MD - 07/18/2016Fo rmatting of this note might be different from the original. CHEST 2 VIEWS 07/18/2016 1:36 AM HISTORY: Sternal trauma. Pain. COMPARISON: None. FINDINGS: The lungs are clear. Normal si zed cardiac silhouette. No pneumothorax. Acute-appearing fracture o f the posterolateral aspect of the right seventh rib. A small focal con vexity in the anterior cortex of the mid sternum. Partial visualizatio n of fusion hardware in the lower cervical spine. Surgical clips in the upper right hemiabdomen likely relate to prior cholecystectomy. IMPRESSION: 1. A small focal convexity in the anteri or cortex of the mid sternum. This is not diagnostic of an acute fract ure, but a nondisplaced acute fracture cannot be excluded. 2. Acute-appearing fracture of the poste rolateral aspect of the right seventh rib. 3. The lungs are clear. No pneumothorax. MURRAY ROGERS MD Radha Espana MD IMG DIAGNOSTIC IMAGING ORDER ALEXANDER EKG 12 lead (07/18/2016 1:17 AM CDT) [facility] gist Method Time Signature Interpretation ECG Click View RADIOLOGY Image link RESULTS to view waveform and result Specimen (Source) Anatomical Collection Method Collection Time Re ceived Time Location / / Volume Laterality 07/18/2016 1:17 AM CDT Radha Espana MD ECG ORDERABLES Performing Organization Address City/State/ZIP Code Phon e Number RADIOLOGY RESULTS documented in this encounter Visit Diagnoses Diagnosis Sternal contusion, initial encounter Closed fracture of rib of right side, in itial encounter documented in this encounter Administered Medications Inactive Administered Medications - up to 3 most recent administrations Medication Order MAR Action Action Date Dose Rate Site diazepam (VALIUM) tablet 5 mg Given 07/18/2016 1:16 AM CDT 5 mg 5 mg, Oral, ONCE, On 07/18/16 at 0113, For 1 dose HYDROmorphone (DILAUDID) injection 1 mg Given 07/18/2016 2:10 AM CDT 1 mg 1 mg, Intramuscular, ONCE, On 07/18/16 at 0159, For 1 dose lidocaine (LIDODERM) 5 % Given 07/18/2016 2:15 AM CDT 2 patches Other (see comments) patch 2 patch 2 patch, Transdermal, ONCE, On 07/18/16 at 0159, For 1 dose, Apply patch(s) to affected area. To prevent lidocaine toxicity, patient should be patch free for 12 hrs daily. Patches may be cut to smaller size prior to removing release liner. NEVER APPLY HEAT OVER PATCH which will increase absorption and may lead to risk of local anesthetic toxicity. Do not apply over area where liposomal bupivacaine was injected for 96 hours post injection. oxyCODONE (ROXICODONE) immediate release Given 07/18/2016 1:16 A M CDT 10 mg tablet 10 mg 10 mg, Oral, ONCE, On 07/18/16 at 0113, For 1 dose documented in this encounter Active and Recently Administered Medications Times are shown in CDT. Scheduled Medication Order 07/16/2016 07/17/2016 07/18/2016 diazepam (VALIUM) tablet 5 mg (COMPLETED) 011 (Given - Provider: Adelita Wise, RADHA) 5 mg, Oral, ONCE, 07/18/16 at 0113, For 1 dose HYDROmorphone (DILAUDID) injection 1 mg (COMPLETED) 021 (Given - Provider: Myesha Lewis, RADHA) 1 mg, Intramuscular, ONCE, 1 dose, 07/18/16 at 0159 lidocaine (LIDODERM) 5 % patch 2 patch (COMPLETED) 021 (Given - Provider: Myesha Lewis RN - Comment: right ribcage, sternum) 2 patch, Transdermal, ONCE, 07/18/16 at 0159, For 1 dose, Apply patch(s) to affected area. To prevent lidocaine toxicity, patient should be patch free for 12 hrs daily. Patches may be cut to smaller size prior to removing release liner. NE FABIOLA APPLY HEAT OVER PATCH which will increase absorption and may lead to risk of local anesthetic toxicity. Do not apply over area where liposomal bupivacaine was injected for 96 hours post injection. oxyCODONE (ROXICODONE) immediate release tablet 10 mg (COMPLETED ) 115 (Given - Provider: Adelita Wise RN) 10 mg, Oral, ONCE, 07/18/16 at 0113, For 1 dose documented in this encounter Care Teams Swamper Relationship Specialty Start Date End Date Amna Fletcher PCP - General 07/18/16 05/16/17 [facility] [address] [place] [address] documented as of this encounter
--- OUTSIDE RECORDS SUMMARY | 2022-07-06 14:59 | XMS_ITS | Encounter Summary ---
:1965 Author Organization [facility] Address [address] [place] [address] Care Team Providers Name Role Phone Jose Holden MD Primary Care Provider [phone] Reason for Referral Therapies (Routine) - Closed Specialty Diagnoses / Procedures Referred By Contact Refer red To Contact Diagnoses S/P cervical spinal fusion Pete Gonzalez MD [facility] [address] [place] [id number] Referral ID Status Reason Start Date Expiration Date Visits Requ ested Visits Authorized [id number] Closed 12/26/2018 02/24/2019 1 1 Scheduling Instructions Your provider has recommended an appoint ment with a [facility] Physical Therapist. Please stop at the clinic check out desk for assistance with scheduling or if you prefer to call for your appointment you may call [facility] Outpatient Rehabilitation at [phone]. We suggest you call your [facility] insurance company about your coverage and benefits for this appointment. FOREMAN Reason for Visit Reason Comments Revisit Encounter Details Date Type Department Care Team Description 12/26/2018 Office Visit [facility] Pete Gonzalez, S/P miguelito al spinal [facility] fusion (Primary Dx) Neurosurgery/Ortho [address] [facility] [address] [place] [address] [place] [id number] [phone] Social History Tobacco Use Types Packs/Day Years [...] Time Taken Comments Blood Pressure 115/72 12/26/2018 1:48 PM PIPE FOREMAN Pulse 70 12/26/2018 1:48 PM PIPE FOREMAN Temperature 36.5 ??C (97.7 ??F) 12/26/2018 1:48 PM PIPE FOREMAN Respiratory Rate - - Oxygen Saturation - - Inhaled Oxygen Concentration - - Weight 71.2 kg (157 lb) 12/26/2018 1:48 PM PIPE FOREMAN Height 152.4 cm (5') 12/26/2018 1:48 PM PIPE FOREMAN Body Mass Index 30.66 12/26/2018 1:48 PM PIPE FOREMAN documented in this encounter Patient Instructions Patient InstructionsChava Simon RN - 12/26/2018 1:40 PM CST Neurosurgery Center Patient Instructions Tests: You will be scheduled for cervical x-rays.prior to your next appointment. Referral: You have been referred to physical therapy. Follow up: with Dr. Pete Gonzalez in 6-8 weeks. If tests were ordered, they will be [...] your understanding. Please call the Neurosurgery Center [phone] with any further questions or concerns or if your symptoms worsen. Thank you for coming to see us today. We are your partner. 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 The patient was slowly improving, however in October 2018 suffered a significant fall where she slipped and landed on her head and neck. Since then she has been having re- exacerbation of all her preoperative symptoms and throbbing headache. She also had shoulder surgery in the year prior to her cervical spine revision surgery with me and is experiencing pain in hershoulder. Review of her recent mid October CT and today's x-raysshow no significant evidence of hardware failure. I would expect however that many of her symptoms are attributable to irritation of the cervical spine nerves as well as the shoulder surgery site. These areas have low reserve their ability to tolerate any further injury given their history. I have written a letter to her pain group to reconsider her needs for pain given the above as well as recommended some gentle range of motion physical therapy at her current physical therapy Center at [facility] and also continued pain management in the form of trigger point injections which were helping prior to this recent injury described above. Follow up in 6-8 weeks. Total patient care time including face to face time was 15 minutes and greater than 50% of the timewas spent counseling and coordinating care. Voice recognition software was used for this statement, which is prone to typos and grammatical errors. FOREMAN documented in this encounter Plan of Treatment Scheduled Referrals Name Type Priority Associated Diagnoses Order S [facility] Physical Therapy Referral Routine S/P cervical spinal fusi on Ordered: 12/26/2018 documented as of this encounter Visit Diagnoses Diagnosis S/P cervical spinal fusion - Primary Arthrodesis status documented in this encounter Care Teams Community Health Nurse Supervisor Relationship Specialty Start Date End Date Jose Holden MD PCP - General Otolaryngology 12/14/17 [place] [address] documented as of this encounter
--- OUTSIDE RECORDS SUMMARY | 2022-07-06 14:59 | XMS_ITS | Encounter Summary ---
:1965 Author Organization [facility] Address [address], [place] [address] Care Team Providers Name Role Phone Jose Holden MD Primary Care Provider [phone] Reason for Visit Reason Comments APPOINTMENT REQUEST Encounter Details Date Type Department Care Team Description 11/13/2018 Telephone [facility] Pete Gonzalez MD APPOINTMENT REQUEST [facility] [address] [place], [place] [address]E Neurosurgery/Ortho [place], [place] [address] [place] [address] [place] [address] [phone] Social History Tobacco Use Types Packs/Day Years Used Date Smoking Tobacco: Every Day Cigarettes 0.5 30 Smokeless Tobacco: Never Comments: 30 year smoker on and off, 0.5 a day Alcohol Use Standard Drinks/Week Comments No 0 (1 standard drink = 0.6 oz pure alcoho l) Sex Assigned at Date Recorded Not on file documented as of this encounter Nursing Notes Jana Marcos - 11/16/2018 3:46 PM CST Employee Development Specialist spoke to the pt and helped schedule an appt with Dr. Gonzalez on 12/26/17 at 1:40PM. Pt was in agreement of date, time and location. Jana Marcos 11/16/2018, 3:46 PM ICATION SPECIALIST Chava Simon RN - 11/16/2018 1:15 PM CST Per Sirisha Rolandson Gunnar, FISH HATCHERY WORKER: patient can follow up with Dr. Gonzalez with repeat upright cervical XRs. Rachid: please call patient and assist in scheduling her for an appointment with Dr. Gonzalez at next available with XR Chava Simon RN 11/16/2018, 1:20 PM ICATION SPECIALIST Chava Simon RN - 11/16/2018 11:15 AM CST Images from the original note were not included. Team, please review report below. Imaging in PACs. Chava Simon RN 11/16/2018, 11:16 AM Chava Walker RN - 11/16/2018 8:55 AM CST Team, patient's CT cervical is now on PACs. Please review and advise. Chava Simon RN 11/16/2018, 8:55 AM Chava Walker RN - 11/15/2018 11:21 AM CST [facility]- still have not received CD from [place]. If patient calls back, please let her know. Chava Simon RN 11/15/2018, 11:21 AM Chava Walker RN - 11/14/2018 2:05 PM CST Team would like to wait on imaging then review. Will update encounter when CD and reports are received. Chava Simon RN 11/14/2018, 2:06 PM Chava Walker RN - 11/13/2018 9:10 AM CST Team, please review message below. Nurse will wait for imaging to have team review. Would you like patient to be scheduled at next available with Dr. Gonzalez or simply wait for imaging then determine plan? Chava Simon RN 11/13/2018, 9:12 AM ICATION SPECIALIST Michael Cruz - 11/13/2018 8:23 AM CST Patient called in requesting for an appointment with Dr. Gonzalez himself only and not APPs. She states she fell on ice last week 11/09/18 and went to [facility] to be evaluated. She reports the left side of her neck is very tight and feels like its swollen again. She also reports numbness/tingling which starts from neck all the way to her finger tips on both sides. She obtained a concussion as well. They placed her into a soft collar. She relays they told her everything looks intactbut she would like an evaluation with Dr. Gonzalez to ensure everything is well as [facility] is not theones who did surgery on her and cannot compare this to before and after surgery. Employee Development Specialist called [facility] and spoke with Mandy in the film room. They are not able to push imaging but they can send a CD. Address was provided for her of mail stop [id number] [facility] Attn: Dr. Gonzalez. She states the report will also be included in the CD. She then transferred me to Medical Records. Employee Development Specialist spoke with Shauna who states patient will need to sign an CODI to obtain ED note from 11/09/18 to be sent to us as they are not affiliated with [employer] system. Employee Development Specialist reached patient and relayed she would need to sign CODI to request for ED note to be faxed to us. Patient will be returning phone call today to obtain our fax number as she is not home currently.She will stop by the hospital later some time today to obtain CODI and will call at that time for faxnumber. She is also aware CD is being sent. Michael Cruz 11/13/2018, 8:43 AM ICATION SPECIALIST documented in this encounter Plan of Treatment Not on filedocumented as of this encounter Visit Diagnoses Diagnosis S/P cervical spinal fusion - Primary Arthrodesis status documented in this encounter Care Teams Research Phlebotomist Relationship Specialty Start Date End Date Jose Holden MD PCP - General Otolaryngology 12/14/17 [place] [address] documented as of this encounter
--- OUTSIDE RECORDS SUMMARY | 2022-07-06 14:59 | XMS_ITS | Encounter Summary ---
:1965 Author Organization [facility] Address [address], [place] [address] Care Team Providers Name Role Phone Jose Holden MD Primary Care Provider [phone] Reason for Visit Reason Comments Forms Encounter Details Date Type Department Care Team Description 07/11/2018 Telephone [facility] Pete Gonzalez MD Forms [facility] [address] [facility] [place], [place] [address] [address] [place] [address] [phone] Social History Tobacco Use Types Packs/Day Years Used Date Smoking Tobacco: Every Day Cigarettes 0.5 30 Smokeless Tobacco: Never Comments: 30 year smoker on and off, 0.5 a day Alcohol Use Standard Drinks/Week Comments No 0 (1 standard drink = 0.6 oz pure alcoho l) Sex Assigned at Date Recorded Not on file documented as of this encounter Nursing Notes Chava Simon RN - 07/12/2018 12:15 PM CDT Forms filled out by Dr. Gonzalez team. Forms mailed in envelope provided by patient. Chava Simon RN 07/12/2018, 12:15 PM [facility] - 07/11/2018 2:31 PM CDT Form from Pt Order/Plan received via mail. Placed on RN's desk. documented in this encounter Plan of Treatment Not on filedocumented as of this encounter Visit Diagnoses Not on filedocumented in this encounter Care Teams Metalizer Field Operation Relationship Specialty Start Date End Date Jose Holden MD PCP - General Otolaryngology 12/14/17 [place] [address] documented as of this encounter
--- OUTSIDE RECORDS SUMMARY | 2022-07-06 14:59 | XMS_ITS | Encounter Summary ---
:1965 Author Organization [facility] Address [address] [place] [address] Care Team Providers Name Role Phone Jose Holden MD Primary Care Provider [phone] Reason for Visit Reason Comments UPDATE Encounter Details Date Type Department Care Team Description 07/07/2018 Telephone [facility] Gume Pittman, UPDATE [facility] [address] [place] [address] [place] [address] [phone] (Wo rk) Social History Tobacco Use Types Packs/Day Years Used Date Smoking Tobacco: Every Day Cigarettes 0.5 30 Smokeless Tobacco: Never Comments: 30 year smoker on and off, 0.5 a day Alcohol Use Standard Drinks/Week Comments No 0 (1 standard drink = 0.6 oz pure alcoho l) Sex Assigned at Date Recorded Not on file documented as of this encounter Nursing Notes Lawrence Arenas RN - 07/07/2018 12:44 PM CDT Central Office Trouble Shooter called patient, she states she has left neck/shoulder pain that did not improve after TPI's last week. Pt shares her right side of neck/shoulder is getting tight again and she is having headaches. Pt wants to proceed with occipital nerve blocks for her headache. Central Office Trouble Shooter offered patient appointment 07/10 which she accepted. 06/29/18 Pt last seen in clinic by Dr. Pittman. Per clinic note, Assessment: 1. Myalgia: Patient again appears to have significant myofascial pain. Recommend repeat of trigger point injections today, but on the left side only as the right side is doing much better. 2. H/O cervical spinal arthrodesis 3. Cervical vertebral fusion 4. Fibromyalgia 5. Tobacco use disorder (HRC) 6. Status post total left knee replacement 7. Occipital neuralgia: If patient has suboptimal relief with trigger point injections once again, could consider occipital nerve blocks instead in the future ??Barriers: 1. halfway opioid use ??Plan: 1. Patient education: I went over the above diagnoses and treatment plan with her and answered all of her questions. 2. Imaging review: None 3. Exercise program: Regular exercise and activity 4. Medications: Increase dose of tizanidine to 4-6 mg 4 times a day prn 5. Imaging Orders: None. 6. Interventions: Trigger point injections today Based on history and physical exam, unlikely tumor or mass causing pain 7. Referrals: None 8. Follow up: As needed ??Procedure: Trigger point injections Dx: myalgia. Jovana Garcia - 07/07/2018 11:55 AM CDT Pt calling to give update on TPI states pain is worse hasn't gotten any better please advise. Thanks Jovana Garcia documented in this encounter Plan of Treatment Not on filedocumented as of this encounter Visit Diagnoses Not on filedocumented in this encounter Care Teams Roof Service Technician Relationship Specialty Start Date End Date Jose Holden MD PCP - General Otolaryngology 12/14/17 [place] [address] documented as of this encounter
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
--- OUTSIDE RECORDS SUMMARY | 2022-07-06 14:59 | XMS_ITS | Encounter Summary ---
:1965 Author Organization [facility] Address [address] [place] [address] Care Team Providers Name Role Phone Jose Holden MD Primary Care Provider [phone] Encounter Details Date Type Department Care Team Description 07/10/2018 Consent for [facility] Procedure/Treat [facility] Tony Alvarado MD FOR TX/PROCEDURE ent Pain Management [address] [place] [id number] Social History Tobacco Use Types Packs/Day Years [...] on filedocumented in this encounter Care Teams Woods Laborer Relationship Specialty Start Date End Date Jose Holden MD PCP - General Otolaryngology 12/14/[address] [place], [place] [id number] documented as of this encounter
--- OUTSIDE RECORDS SUMMARY | 2022-07-06 14:59 | XMS_ITS | Encounter Summary ---
:1965 Author Organization [facility] Address [address] [place] [address] Care Team Providers Name Role Phone Jose Holden MD Primary Care Provider [phone] Encounter Details Date Type Department Care Team Description 08/14/2018 Consent for [facility] Procedure/Treat [facility] Tony Alvarado MD FOR TX/PROCEDURE ent Pain Management [address] [place] [id number] Social History Tobacco Use Types Packs/Day Years [...] on filedocumented in this encounter Care Teams Cow Puncher Relationship Specialty Start Date End Date Jose Holden MD PCP - General Otolaryngology 12/14/[address] [place], [place] [id number] documented as of this encounter
--- OUTSIDE RECORDS SUMMARY | 2022-07-06 14:59 | XMS_ITS | Encounter Summary ---
:1965 [facility] Address [address] [place] [address] Care Team Providers Name Role Phone Jose Holden MD Primary Care Provider [phone] Encounter Details Date Type Department Care Team Description 11/10/2018 Orders Only External to [facility] No Primary/Referring, Phy Social History Tobacco Use Types Packs/Day Years [...] Date/Time Associated Diagnosis Comme nts CT HEAD 11/10/2018 12:00 AM Results for this LAST [facility]PER procedure are i n the results section . documented in this encounter Results CT HEAD (11/10/2018 12:00 AM LAST DIPPER) Anatomical Region Laterality Modality Other Specimen (Source) Anatomical Location Collection Method / Collectio n Time Received Time / Laterality Volume 11/10/2018 Narrative This result has an attachment that is no t available. Phy No Primary/Referring DUMMY/OTHER/AR documented in this encounter Visit Diagnoses Not on filedocumented in this encounter Care Teams Harness Builder Relationship Specialty Start Date End Date Jose Holden MD PCP - General Otolaryngology 12/14/17 [place] [address] documented as of this encounter
--- OUTSIDE RECORDS SUMMARY | 2022-07-06 14:59 | XMS_ITS | Encounter Summary ---
:1965 Author Organization [facility] Address [facility] [place] [address] Care Team Providers Name Role Phone Unavailable Primary Care Provider Unavailable Encounter Details Date Type Department Care Team Description 07/29/2011 Historic Notes INTERFACED REPORT Interface, Transcript onMD Social History Tobacco Use Types Packs/Day Years Used Date Never Assessed Sex Assigned at Date Recorded Not on file documented as of this encounter Progress Notes Interface, Support Assistant - 08/30/2011 5:48 PM CDT Allergies ?? Ceclor;Unknown f0?? acyclovir;Unknown f0?? PCN;Unknown pard par Basic Medication Information - History taken from:: Patient Medications (#1-10) - Medication: lyrica - Medication: prozac - Medication: lamictal - Medication: percocet - Medication: arthritis medications CRISTELA Rowell (RN)[Signed 13:43] Authored: Allergies, Basic Medication Information, Medications (#1-10) documented in this encounter Plan of Treatment Not on filedocumented as of this encounter Visit Diagnoses Not on filedocumented in this encounter
--- OUTSIDE RECORDS SUMMARY | 2022-07-06 14:59 | XMS_ITS | Encounter Summary ---
:1965 Author Organization [place] Address [facility] [place] [address] Care Team Providers Name Role Phone Unavailable Primary Care Provider Unavailable Encounter Details Date Type Department Care Team Description 04/15/2009 Historic Results INTERFACED REPORT Kai Munoz MD [address] [facility] [address] [place] [address] (Wo rk) Social History Tobacco Use Types Packs/Day Years Used Date Never Assessed Sex Assigned at Date Recorded Not on file documented as of this encounter Plan of Treatment Not on filedocumented as of this encounter Procedures Procedure Name Priority Date/Time Associated Diagnosis Comme nts BASIC METABOLIC STAT 04/15/2009 3:01 PM Result s for this PANEL CDT procedure are i n the results section. documented in this encounter Results Basic metabolic panel (04/15/2009 3:01 PM CDT) P athologist Signature Sodium 138 133 - 144 MISYS mmol/L Potassium 4.0 3.4 - 5.3 MISYS mmol/L Chloride 107 94 - 109 MISYS mmol/L Carbon Dioxide 25 20 - 32 MISYS mmol/L Glucose 85 60 - 99 MISYS mg/dL Urea Nitrogen 11 5 - 24 MISYS mg/dL Creatinine 0.58 0.52 - 1.04 MISYS mg/dL Comment: New IDMS-traceable calibration beginning 03/28/08 GFR Estimate >90 >60 mL/min/1.7m2 MISYS GFR Estimate If Black >90 >60 mL/min/1.7m2 M ISYS Calcium 9.1 8.5 - 10.4 mg/dL MISYS Anion Gap 6 6 - 17 mmol/L MISYS Specimen Anatomical Collection Method Collection Time Receive d Time (Source) Location / / Volume Laterality 04/15/2009 3:01 PM 9 2:49 CDT PM CDT Evelio Munoz MD LAB - BLOOD ORDERABLES Performing Organization Address City/State/ZIP Code Phon e Number MISYS documented in this encounter Visit Diagnoses Not on filedocumented in this encounter
--- OUTSIDE RECORDS SUMMARY | 2022-07-06 14:59 | XMS_ITS | Encounter Summary ---
:1965 [facility] Organization [facility] Address [address], [place] [address] Care Team Providers Name Role Phone Jose Holden MD Primary Care Provider [phone] Reason for Visit Reason Comments Revisit trigger point injections/occ ipital nerve blocks Encounter Details Date Type Department Care Team Description 03/06/2019 Office Visit [facility], Bilateral occ ipital neuralgia (Primary Dx); [facility] Carole Bowden Myalgia; Pain Management [address] Cervical vertebral fusion; [address] [place], [place] Spondylosis of cervical princess on [place] [phone] Social History Tobacco Use Types Packs/Day Years [...] Pulse 67 03/06/2019 3:00 PM CDT Temperature - - Respiratory Rate - - Oxygen Saturation - - Inhaled Oxygen Concentration - - Weight - - Height - - Body Mass Index - - documented in this encounter Patient Instructions Patient InstructionsTony Pittman MD - 03/06/2019 2:45 PM CDT Impression: Angie was seen today for revisit. Diagnoses and all orders for this visit: Bilateral occipital neuralgia Myalgia - metaxalone (SKELAXIN) 800 MG tablet; Take 1 Tablet by mouth three times a day as needed for MuscleSpasms. 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 Discontinue zanaflex and baclofen Equipment: None Referrals & Procedures (i.e [...] discussed pacing and energy conservation Follow up: 1-2 months If you have any questions or concerns about your visit, symptoms, medication, test results, or it isnot clear what your diagnosis or treatment plan is, please contact me via [employer] online messaging or call the office at and ask to speak to a nurse. Tony Pittman MD Pain Medicine documented in this encounter Progress Notes Tony Pittman MD - 03/06/2019 2:45 PM CDT [facility] Follow-up Visit 03/06/2019 Interim history: Patient last seen a month ago. Had occipital nerve block and trigger point injection which helped 80% at first. Can sleep a lot better for a few weeks after the injections. Then with slow waning in benefit. Now feels like worn off completely. No new symptoms. Still same chronic issues. Wants repeat injection given past relief. Baclofen was not very helpful. Had side effects like muscle twitches. Has gone back to taking the zanaflex instead. This is more helpful, but still not very much benefit. Is interested in trying a different muscle relaxor. Current treatments include: Oxycodone 5 mg Q6H - Prescribes by [facility], has been taking for [...] hydromorphone, fentanyl Other treatments have included: Angie Jorge Mosquera has been seen at a pain clinic in the past. [facility] physical therapy: Past Acupuncture: [...] anterior cervical fusion 2016 Dr. Ihsan Brooke, [facility] past surgical history reviewed with patient. Medications: Outpatient Medications Prior to Visit Medication Sig Note Dispense Refill ??? acetaminophen (TYLENOL ARTHRITIS) 650 MG controlled release tablet Take 1,300 mg by mouth. ??? albuterol 2.5 mg/3 mL, 0.083%, (PROVENTIL) nebulizer solution Inhale 1 Vial. ??? baclofen (LIORESAL) 10 MG tablet Take 1 Tablet by mouth three times a day as needed. (Patient not taking: Reported on 03/06/2019) 90 Tablet 3 ??? Biotin 1 MG [...] ??? medical cannabis patient certified Take 1 Sasabe by mouth . ??? naloxone (NARCAN) 4 [...] day. 06/20/2018: Prn 50 Tab 0 ??? SUMAtriptan (IMITREX) 25 MG tablet Take 1 Tablet by mouth as needed for Migraine for up to 30 days. May repeat after 2 hours if needed. Maximum 8 tabs/24 hours and 9 days/mth 15 Tablet 2 ??? tiotropium (SPIRIVA) 18 MCG inhalation capsule [...] Gain No facility-administered medications prior to visit. [place] and [place] Prescription Monitoring Program reviewed Allergies: Allergies Allergen [...] in her mother. Social history:she lives in [place], [place].she is not currently working. Smokin/2 ppd. Alcohol: None. Street drugs: Medical marijuana. Complete ROS were reviewed and are negative except those noted in the history and physical exam. Objective: BP 103/69 Pulse 67 Estimated body mass index is 33.01 kg/m?? as calculated from the following: Height as of 12/26/18: 5' (1.524 m). Weight as of 02/16/19: 169 lb (76.7 kg). General: In no apparent distress Mental status: Normal affect, pleasant Head: Atraumatic, normocephalic Eyes: Extra-ocular movements grossly intact, no scleral icterus Cardiovascular: Regular rate Respiratory: No respiratory distress Abdomen: soft, non-distended Msk: Cervical spine range of motion extremely limited. Significant posterior surgical deformity of neck. Lavatory Attendant to palpation bilateral levator scapulae, splenius, trapezius Neuro: AAOx3. CN II-XII are grossly intact. At least antigravity strength noted in all 4 extremities Tender to palpation bilateral suboccipital areas. Positive tinnels bilateral occiput Skin: No rashes or lesions on exposed [...] Recommend repeat trigger point injections today. Discontinue zanaflex and baclofen. Trial skelaxin. 3. Cervical vertebral fusion 4. Fibromyalgia 5. Tobacco use disorder (HRC) 6. Status post total left knee replacement 7. Occipital neuralgia: Repeat of occipital nerve block today 8. Traumatic brain injury: Patient experiencing symptoms consistent with mild to moderate traumatic brain injury. These are unchanged from previous. Barriers: 1. halfway opioid use Plan: 1. Patient education: I went over the above diagnoses and treatment plan with her and answered all of her questions. 2. Imaging review: None 3. Exercise program: Regular exercise and activity 4. Medications: discontinue zanaflex and baclofen. Trial skelaxin 5. Imaging Orders: None. 6. Interventions: Occipital nerve blocks and trigger point injections today Based on history and physical exam, unlikely tumor or mass causing pain 7. Referrals: none new 8. Follow up: 1-2 months or as needed Procedure #1: bilateral [...] MD Pain Medicine Physical Medicine and Rehabilitation [facility] This note created using speech-recognition software and may contain unintended word substitutions. documented in this encounter Plan of Treatment Not on filedocumented as of this encounter Visit Diagnoses Diagnosis Bilateral occipital neuralgia - Primary Myalgia Mylagia and myositis, unspecified Cervical vertebral fusion Klippel-Feil syndrome Spondylosis of cervical region without m yelopathy or radiculopathy (HRC) Cervical spondylosis without myelopathy documented in this encounter Care Teams Public Relations Officer Relationship Specialty Start Date End Date Jose Holden MD PCP - General Otolaryngology 12/14/[address] [place] [id number] documented as of this encounter
--- OUTSIDE RECORDS SUMMARY | 2022-07-06 14:59 | XMS_ITS | Encounter Summary ---
:1965 Author Organization [place] Address [address] [facility] [address] Care Team Providers Name Role Phone Unavailable Primary Care Provider Unavailable Encounter Details Date Type Department Care Team Description 07/29/2011 Emergency room [facility] EMERGENCY NURY CISNEROS Results [address] [place], [place] [address] Social History Tobacco Use Types Packs/Day Years Used Date Never Assessed Sex Assigned at Date Recorded Not on file documented as of this encounter Progress Notes Interface, American History Professor - 07/31/2011 10:23 AM CDT FINAL Chief Complaint - History of Present Illness - MD Time:: 15:13 - Chief Complaint: Sinus congestion and ear pain. - HPI: Kaylin Mosquera is a 46 y.o. female with a history of sinus surgery and recurrent sinus infections who presents to the ED for evaluation of sinus congestion and ear pain. The patient states that she recently came to the area from [place] to visit her father (approximately two weeks ago). She states that she had been treated for a sinus infection prior to leaving on her vacation with a Z-pack that provided her with very little resolution of her symptoms. She states that she had sores in her nostrils as well as pain in her sinus, ears and eyes at the time that she was prescribed the antibiotic. The patient mentions that the pain in her nostrils, sinuses and ears (bilateral) has been consistent since that time, and she currently rates her pain as an 8/10 in severity. Of note, the patient mentions that she has struggled with sinus issues throughout her entire life, and notes that her current symptoms are consistent with those that she has had in the past. Currently the patient states that she is experiencing chills, but she denies any fevers. The patient also states that she is having a productive cough (clear phlegm, and she denies any hemoptysis. She is unable to identify any alleviating or exacerbating factors at this time. She denies any chest pain, abdominal pain or shortness of breath. The patient also denies any recent history of illness, fever, sore throat, headaches, nausea, vomiting, or diarrhea and is otherwise healthy. Medications - Medications: The patient states that she takes Percocet for her chronic back pain PRN. She also takes Prozac, Lamictal and Zyrtec daily. The patient also reports taking a medication for arthritis. Allergies Ceclor; Unknown acyclovir; Unknown PCN;Unknown Past Medical/Family History - -: PAST MEDICAL HISTORY: 1. Chronic back pain. 2. Multiple back surgeries. 3. Sinus surgery. 4. Sinus infections. 5. Previous cervical and lumbar spinal fusions. 6. Gastric bypass surgery. 7. Total knee arthroplasty. - Family History: Reviewed and noncontributory to this visit. Social History - - The patient is here today with a friend. The patient resides in [place], and is here in the [facility] area visiting her father. The patient states that she has been smoking one pack of cigarettes per day since 1973. Her primary care physician is Dr. Holley De La Rosa in [place], [place]. \n Her chronic pain doctor is Dr. Garcia at [facility] in [place]. - Is negative for Illicit drug use, Alcohol use Review of Systems - - All other systems negative except - General Negative for fever, Positive for chills - HENT Negative for headaches, Positive for ear pain, Positive for congestion, Negative for sore throat - Eyes Positive for eye pain - Cardiovascular Negative for chest pain - Respiratory Positive for cough, Negative for hemoptysis, Positive for sputum production, Negative for shortness of breath - Gastrointestinal Negative for nausea, Negative for vomiting, Negative for abdominal pain, Negative for diarrhea - ROS Note Positive for pain in the nares. Positive for bilateral ear and eye pain. Vital Signs-Triage Temp F: 98 degrees F Temp C: 36.6 degrees C Temp site: Oral Heart Rate: 79 bpm Resp Rate: 18 Pulse Oximetry: 96 Oxygen Delivery: Room air Cuff Systolic BP mmH Cuff Diastolic BP mmH Physical Exam - HENT Oropharynx clear and moist, No postnasal drip. No sinus tenderness. Tympanic membranes normal. - Neck range of motion normal, no cervical adenopathy present - Pul/Chest Wall no respiratory distress present - Neurologic alert, oriented x3, Conversant. - Skin No facial erythema. ED Course: Interventions/Consultations/Procedures - -: ED Course: I reviewed the patient's medical record. 1513 The patient was seen and examined by myself. I discussed the course of care with the patient including laboratory and diagnostic studies. She understands and is agreeable to the plan. 1542 Recheck. The patient continues to be pain free here. She has no further questions. 1604 Recheck. The patient continues to do well here in the Emergency Department. I discussed with the patient the results of the above studies and all of the patient's questions have been answered. She will be discharged to home with a prescription for Septra/Bactrim as well as a care plan as detailed below. Reasons for return as well as follow up were reviewed with the patient. She understands and agrees to this plan. \n Medical Decision Making - -: This patient believes she has sinusitis. It is subacute and ongoing on for about three weeks. She states the Azithromycin did not help. This could be viral. However she stated Bactrim has been effective in the past. I prescribed this with a refill for a maximum treatment course of 14 days. She has no evidence on history or exam of intracranial extension of sinusitis. Testing deferred. \n Diagnosis - -: 1. Sinusitis, subacute. \n Disposition Plan - -: The patient was discharged to home in stable condition with instructions as noted above. \n With reasonable clinical confidence, I do not believe any emergency medical condition exists that requires further immediate medical attention, or that could be expected to place the patient's health in serious jeopardy. \n Scribe Disclosure I, Nuha Kaur ,am serving as a scribe to document services personally performed by Dr. Kelley , based on my observations and the provider's statements to me. Electronically signed on 07/31/2011 10:22 by CAITY KELLEY MD As dictated by NUHA KAUR MT: JOSÉ MIGUEL Name: KAYLIN MOSQUERA Account: [id number] : 1965 Visit Date: 07/29/2011 Document: [id number] documented in this encounter Plan of Treatment Not on filedocumented as of this encounter Visit Diagnoses Not on filedocumented in this encounter
--- OUTSIDE RECORDS SUMMARY | 2022-07-06 14:59 | XMS_ITS | Encounter Summary ---
:1965 Author Organization [facility] Address [address] [address] Care Team Providers Name Role Phone Jose Holden MD Primary Care Provider Encounter Details Date Type Department Care Team Description 11/10/2018 Orders Only External to Pete Tamayo MD [address] [place], [place] [id number] (Wo rk) Social History Tobacco Use Types [...] Priority Date/Time Associated Diagnosis Comme nts CT SCAN SPINE--SCAN 11/10/2018 12:00 AM R esults for this HAIR SPINNING MACHINE OPERATOR procedure are i n the results section. documented in this encounter Results CT SCAN SPINE--SCAN (11/10/2018 12:00 AM HAIR SPINNING MACHINE OPERATOR) Anatomical Region Laterality Modality Other Specimen (Source) Anatomical Location Collection Method / Collectio n Time Received Time / Laterality Volume 11/10/2018 Narrative This result has an attachment that is no t available. Pete Gonzalez MD DUMMY/OTHER/AR documented in this encounter Visit Diagnoses Not on filedocumented in this encounter Care Teams Children[employer] Caretaker Relationship Specialty Start Date End Date Jose Holden MD PCP - General Otolaryngology 12/14/17 [address] [place] [address] documented as of this encounter
--- OUTSIDE RECORDS SUMMARY | 2022-07-06 14:59 | XMS_ITS | Encounter Summary ---
:1965 Author Organization [facility] Address [address] [place] [address] Care Team Providers Name Role Phone Jose Holden MD Primary Care Provider [phone] Encounter Details Date Type Department Care Team Description 04/09/2019 Notes/Orders [facility] Neuroscience Jose Carias, Center Director Of Direct Marketing apy PT [address] [place] [address] [place] [address] [phone] (Wo rk) Social History Tobacco Use Types Packs/Day Years Used Date Smoking Tobacco: Every Day Cigarettes 0.5 30 Smokeless Tobacco: Never Comments: 30 year smoker on and off, 0.5 a day Alcohol Use Standard Drinks/Week Comments No 0 (1 standard drink = 0.6 oz pure alcoho l) Sex Assigned at Date Recorded Not on file documented as of this encounter Progress Notes Alyse Carias, PT - 04/09/2019 3:19 PM CDT PHYSICAL THERAPY DISCHARGE NOTE Angie Mosquera [id number] Payor: MEDICARE / Plan: MEDICARE / Product Type: Medicare / Angie Mosquera has not attended therapy since 03/06/2019. There are no further visits scheduled at this time and Angie Mosquera is currently considered discharged from therapy. Unable to assess current level of function and goals due to unexpected discharge because of failure to schedule/attend appointments. Please see previous visit documentation for status at last treatment. Alyse Carias, TRACEY 04/09/2019 documented in this encounter Plan of Treatment Not on filedocumented as of this encounter Visit Diagnoses Not on filedocumented in this encounter Care Teams Dry End Operator Relationship Specialty Start Date End Date Jose Holden MD PCP - General Otolaryngology 12/14/17 [place] [address] documented as of this encounter
--- OUTSIDE RECORDS SUMMARY | 2022-07-06 14:59 | XMS_ITS | Encounter Summary ---
:1965 Author [facility] Address [address] [place] [address] Care Team Providers Name Role Phone Jose Holden MD Primary Care Provider [phone] Encounter Details Date Type Department Care Team [...] 11/10/2018 12:00 AM R esults for this KAIAKO KURA KAUPAPA MAORI procedure are i n the results section. documented in this encounter Results CT SCAN SPINE--SCAN (11/10/2018 12:00 AM KAIAKO KURA KAUPAPA MAORI) Anatomical Region Laterality Modality Other Specimen (Source) Anatomical Location Collection Method / Collectio n Time Received Time / Laterality Volume 11/10/2018 Narrative This result has an attachment that is no t available. Phy No Primary/Referring DUMMY/OTHER/AR documented in this encounter Visit Diagnoses Not on filedocumented in this encounter Care Teams Financial Foundations Representative Relationship Specialty Start Date End Date Jose Holden MD PCP - General Otolaryngology 12/14/[address] [place] [address] documented as of this encounter
--- OUTSIDE RECORDS SUMMARY | 2022-07-06 14:59 | XMS_ITS | Encounter Summary ---
:1965 Author Organization [facility] Address [address] [place] [address] Care Team Providers Name Role Phone Jose Holden MD Primary Care Provider [phone] Encounter Details Date Type Department Care Team Description 02/06/2019 Consent for [facility] Procedure[facility]Treatm [facility] Tony Alvarado MD FOR TX/PROCEDURE ent Pain Management [address] [place] [phone] Social History Tobacco Use Types Packs/Day Years [...] on filedocumented in this encounter Care Teams Poultry Breeder Relationship Specialty Start Date End Date Jose Holden MD PCP - General Otolaryngology 12/14/[address] [place], [place] [phone] documented as of this encounter
--- OUTSIDE RECORDS SUMMARY | 2022-07-06 14:59 | XMS_ITS | Encounter Summary ---
:1965 [facility] Address [address], [place] [address] Care Team Providers Name Role Phone Jose Holden MD Primary Care Provider [phone] Reason for Visit Reason Comments Injection Encounter Details Date Type Department Care Team Description 09/04/2018 Telephone [facility] Pete Gonzalez MD Injection Center Neurosurgery/Ortho [address] [facility] Spine [place], [place] [address] [address] [place] [address] [phone] Social History Tobacco Use Types Packs/Day Years Used Date Smoking Tobacco: Every Day Cigarettes 0.5 30 Smokeless Tobacco: Never Comments: 30 year smoker on and off, 0.5 a day Alcohol Use Standard Drinks/Week Comments No 0 (1 standard drink = 0.6 oz pure alcoho l) Sex Assigned at Date Recorded Not on file documented as of this encounter Nursing Notes Michael Cruz - 09/05/2018 10:52 AM CDT Reached patient and relayed message below to her about injection order & letter request. Patientverbalized understanding and was transferred to pain injection schedulers for scheduling trigger point injections. Michael Cruz 09/05/2018, 10:53 AM Chava Simon RN - 09/05/2018 10:13 AM CDT Per Sirisha Maher, SUPERVISOR BILLPOSTING: cannot write letter. Okay for repeat bilateral cervical/thoracic trigger point injections. Verbal read back done and orders placed. Rachid: please call patient and let her know we cannot write letter and schedule her for injections. Chava Simon RN 09/05/2018, 10:14 AM Sirisha Rankin APRN, KALPANA - 09/05/2018 9:54 AM CDT Ok for trigger point injections. I can not justify a medical necessity letter for move due to noise.This is not related to her spinal surgery. Thanks, Sirisha Maher APRN, KALPANA 09/05/2018, 9:55 AM Aura Darby - 09/04/2018 1:54 PM CDT Patient called into clinic requesting an order for a trigger point injection, her last injection wason 08-14-[address] Pittman. Patients states she can have an injection once a month. Patient is also requesting a letter to be written for her landlord. Patient states she would like tomove to another apartment in her complex because of the noise, she can't sleep. Their is a opening in her complex that would be better for her and needs a statement for medically necessary. Please call patient regarding her request. Thank you Aura Darby documented in this encounter Plan of Treatment Not on filedocumented as of this encounter Visit Diagnoses Diagnosis Neck pain - Primary Cervicalgia documented in this encounter Care Teams Registration Scheduling Specialist Relationship Specialty Start Date End Date Jose Holden MD PCP - General Otolaryngology 12/14/17 [place] [id number] documented as of this encounter
--- OUTSIDE RECORDS SUMMARY | 2022-07-06 14:59 | XMS_ITS | Encounter Summary ---
:1965 Author Organization [facility] Address [address] [place] [address] Care Team Providers Name Role Phone Jose Holden MD Primary Care Provider [phone] Encounter Details Date Type Department Care Team Description 12/26/2018 Consent for [facility], CONSENT FOR Procedure/[facility] Tony Alvarado MD PROCEDURE ent Pain Management [address] [place] [phone] Social History Tobacco Use Types Packs/Day Years [...] filedocumented in this encounter Care Teams Supervisor Remelt Relationship Specialty Start Date End Date Jose Holden MD PCP - General Otolaryngology 12/14/[address] [place] [address] documented as of this encounter
--- OUTSIDE RECORDS SUMMARY | 2022-07-06 14:59 | XMS_ITS | Encounter Summary ---
:1965 Author Organization [facility] Address [address], [place] [address] Care Team Providers Name Role Phone Jose Holden MD Primary Care Provider [phone] Reason for Visit Reason Comments Revisit Bilateral cervical/thoracic trigger point injections Encounter Details Date Type Department Care Team Description 08/14/2018 Office Visit [facility] occipital neuralgia (Primary Dx); [facility] Myalgia; Management [address] H/O cervical spinal arthrodesis [address] [place] [phone] Social History Tobacco Use Types Packs/Day Years [...] Time Taken Comments Blood Pressure 112/75 08/14/2018 3:46 PM CDT Pulse 68 08/14/2018 3:46 PM CDT Temperature - - Respiratory Rate - - Oxygen Saturation - - Inhaled Oxygen Concentration - - Weight - - Height - - Body Mass Index - - documented in this encounter Patient Instructions Patient InstructionsGillian Harding - 08/14/2018 3:00 PM CDT We performed a occipital nerve block today. The numbing medication will last about 12 hours. That should improve or resolve the headache if the occipital nerve is the main pain generator. Though very unlikely, call us if any concerning symptoms of infection including swelling at the sitethat does not resolve, drainage, pain, fevers. documented in this encounter Progress Notes Tony Pittman MD - 08/14/2018 3:00 PM CDT [facility] Follow-up Visit 08/14/2018 Interim history: Patient returns today for follow up regarding neck and head pain. Patient has occipital nerve block 5 weeks ago with good relief lasting 4 weeks. Patient reports headaches began coming back about 1 week ago, and have completely returned at this time. She states that blocks provided nearly 100% relief. Overall occipital nerve block was much more beneficial than trigger point injections. Describes significant improvement in functionality. No new symptoms. Current treatments include: Oxycodone 5 mg Q6H - Prescribes by [facility], has been taking for [...] at a pain clinic in the past. [facility] physical therapy: Past Acupuncture: [...] anterior cervical fusion 2017 Dr. Ihsan Brooke, [facility] past surgical history reviewed with patient. [...] ??? medical cannabis patient certified Take 1 Madeline by mouth . ??? naloxone (NARCAN) 4 [...] Gain No facility-administered medications prior to visit. [place] and [place] Prescription Monitoring Program reviewed Allergies: Allergies Allergen [...] in her mother. Social history:she lives in [place], [place].she is not currently working. Smokin/2 ppd. Alcohol: None. Street drugs: Medical marijuana. Complete ROS were reviewed and are negative except those noted in the history and physical exam. Objective: BP 112/75 Pulse 68 Estimated body mass index is 30.47 kg/(m^2) as calculated from the following: Height as of 02/22/18: 5' (1.524 m). Weight as of 02/22/18: 156 lb (70.8 kg). General: In no apparent distress Mental status: Normal affect, pleasant Head: Atraumatic, normocephalic Eyes: Extra-ocular movements grossly intact, no scleral icterus Cardiovascular: Regular rate Respiratory: No respiratory distress Abdomen: soft, non-distended Msk: Pain with extension and rotation of cervical spine. cervical spine range of motion extremely limited. Tender to palpation suboccipital muscles. Neuro: AAOx3. CN II-XII are grossly intact. [...] neuralgia: Repeat of occipital nerve block today Barriers: 1. jail opioid use Plan: 1. Patient education: I [...] Referrals: None 8. Follow up: As needed Procedure: bilateral Occipital nerve block Dx: bilateral [...] due to the increased risk of infection. ?? Tony Pittman MD Pain Medicine [facility] This document serves as a record of services personally performed by Tony Pittman MD. It was created on his behalf by Gillian Harding, a trained medical anthropology director. The creation of this record is based [...] status documented in this encounter Care Teams Supervisor Publications Relationship Specialty Start Date End Date Jose Holden MD PCP - General Otolaryngology 12/14/17 [facility] [place] [address] documented as of this encounter
--- OUTSIDE RECORDS SUMMARY | 2022-07-06 14:59 | XMS_ITS | Encounter Summary ---
:1965 Author [facility] Address [address] [place] [address] Care Team Providers Name Role Phone Jose Holden MD Primary Care Provider [phone] Reason for Referral Procedure/Equipment (Routine) - Closed Specialty Diagnoses / Procedures Referred By Contact Refer red To Contact Diagnoses Dizziness Concussion with loss of consciousness of 30 minutes or less, subsequent encounter Alyse Carias, PT [address] [place] [address] Referral ID Status Reason Start Date Expiration Date Visits Requ ested Visits Authorized [id number] Closed 03/06/2019 06/04/2020 20 20 Scheduling Instructions . Reason for Visit Reason Comments Concussion Therapies (Routine) - Closed Specialty Diagnoses / Procedures Referred By Contact Refer red To Contact Diagnoses Impairment of balance Dizziness Blanka [place], MANUFACTURING MAINTENANCE MANAGER, CN P [address] [place] [address] Referral ID Status Reason Start Date Expiration Date Visits Requ ested Visits Authorized [id number] Closed 02/16/2019 04/17/2019 1 1 Encounter Details Date Type Department Care Team Description 03/06/2019 Office Visit [facility] Bee Dizziness (Primary Dx); [facility], PT Concussion with loss of consciousness of 30 minutes or less, subsequent encounter Physical Therapy [address] [place] [phone] Social History Tobacco Use Types Packs/Day Years [...] encounter Progress Notes Alyse Carias, PT - 03/06/2019 2:00 PM CDT PHYSICAL THERAPY VESTIBULAR INITIAL EVALUATION ASSESSMENT Patient presents with mTBI (s/p fall 11/10/18). She continues to be limited with dizziness and imbalance. Patient with signicant medical history also impacting her status including sinus infection, chronic pain and s/p cervical fusion (limited cervical AROM). Due to abbreviated session length (late arrival and requested to leave early due to appointment conflict), unable to fully evaluate status yet demonstrates impairments in dizziness, balance (to be further assessed), HERZOG, ROM. She is appropriate for skilled PT services to focus on above limitations and towards below noted goals. Patient in agreement with POC with all questions/concerns fully addressed. Evaluation billed as Moderate Complexity as supported by: 1-2 personal factors and/or co-morbidities impacting plan of care (see Problem List for details). Examination of body systems using standardized tests and measures addressing a total of 3 or more elements from any of the following (body structures and function, activity limitations, and/or participation restrictions) (dizziness, mTBI, limited ROM, chronic pain). Physical Therapist exercised decision-making of a moderate complexity. Goals (within 6 sessions): 1. Patient will demonstrate stable gait pattern with ability to move head and neck comfortably without evidence of imbalance. 2. Patient will demonstrate 75% improvement in postural awareness with daily activities. 3. Patient will be independent with home exercise program and self-management. 4. Patient to note decrease in DHI by 10%. PLAN Plan for Next Session: further assess balance. Progress vestibular rehab as able. Occipital nerve block today Sinus surgery 02/28/19 Treatment Plan: Myofascial cervical SCM stretching Upper cervical exercises Vestibular Habituation Program Posture Correction Neuromuscular Re-education Patient education/ self-care Frequency of Treatment: 1 sessions every week. Expected Total Visits: 6--will continue to assess need for ongoing PT services as appropriate VISIT INFORMATION Other Insurance Info: [employer] Today's Visit Number: 1 Progress Note Needed at Visit Number: 10 Medicare Insurance Info: Total Units Used (including today): Today's Visit Number: 1 Progress Note Needed at Visit Number: 10 Certification Period: 03/06/2019 - 06/03/19 Date of Onset: 11/10/18 Treatment Diagnoses: Impairment of balance [R26.89] ??- Primary Dizziness [R42] ICD-10-CM 1. Dizziness R42 Rehab Therapies Follow Up 2. Concussion with loss of consciousness of 30 minutes or less, subsequent encounter [id number] Rehab Therapies Follow Up Referral: 02/16/19 Past Medical History, Diagnostic Tests, and Medications: Reviewed in Epic. Barriers/Restrictions: none noted Precautions: h/o chronic pain, mental health SUBJECTIVE Patient is a 53 yro female referred to outpatient physical therapy s/p fall on 11/10/18 with ongoingdizziness. NIRU: Reports slip and fall backwards. Currently also having sinus infection which has been impacting her status (scheduled for surgery at [place] on 02/28/19). Tinnitus- scheduled for hearing assessment (notes she has family history of hearing loss). She notes chief complaints of headaches and dizziness. (has imitrex for severe headache only). Head feels like jello. She reports feeling of motion sickness. Increases with movement (ie driving). Light sensitivity which she notes has increased since fall. Multiple issues due to previous h/o chronic pain and PTSD. Per medical chart review: The injury occurred on October 2018 after [...] ER right away. She was seen at [facility]. ?? She has a past medical history of chronic neck and back pain, asthma, dysthymic disorder, temporomandibular joint, prediabetes, spinal stimulator implant, mastopexy, bipolar two, PTSD, chronic dizziness, iron deficiency, right foot fracture, falls, mild chronic edema stress incontinence, and prior head injuries. She has a gastric bypass bilateral knee arthroplasties the cholecystectomy and a hysterectomy, several neck surgeries (Dr Gonzalez), back surgeries, tubal ligation, foot surgeries, abdominoplasty, cataract removal, carpal tunnel release and left shoulder replacement. Pain: Yes- did not ask to limit perseveration on pain. Getting injections today. Onset of Symptoms: gradual Duration of Symptoms: variable Aggravating factors: movement, head motions, looking up, looking down and leaning forward Relieving factors: time and sitting still Prior Level of Function: Previous limited function due to PMH Lives in [place]. Independent with ADLs, driving. Current Level of Function: Currently not-employed. Lives alone in apartment. Difficulty bending down She does endorse LOS in home setting. Previous Therapy for This Condition: PT for neck (01/23/19- refaxed orders) Patient Goals: Return to previous level of function and Increased function OBJECTIVE Posture/Observations: alert, oriented, cooperative. forward head posturing. 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 Functional Mobility: Ambulation: independent Bed Mobility: independent ROM: Cervical: (Status post C3-T1 anterior-posterior instrumented fusion) Rotation: 30 degrees Sidebending: limited ~10 degrees Strength: NT Oculomotor Assessment: Spontaneous Nystagmus: no (with/without fixation) Gaze-Evoked Nystagmus: no Smooth Pursuit: normal Saccades: normal VOR Suppression: abnormal- limited tolerance Head shaking: Horizontal - abnormal (brief 2-3 beats to right)- goggles donned Head Thrust: NT Convergence: WFL Cervical Spine Screen: Vertebral Artery Testing: cleared as able (limited cervical AROM) Balance Test: TBA Gait Tests:TBA BPPV Testing: NA THERAPY OUTCOMES PT - Concussion Dizziness Handicap Inventory (DHI) (0-100, 0 being best): 84 TODAY'S SESSION Initial Evaluation, Moderate Complexity (20 minutes)- Following the evaluation and extensive patienteducation regarding diagnosis, prognosis, and treatment goals, the patient actively participated in the creation of the current goals and agrees to the current treatment plan. Patient provided verbal consent to treatment. Outpatient Attendance Policy handout provided. Neuromuscular Re-education (15 minutes): Initiated gaze x 1 stabilization exercises. Tips for proper exercise performance and what to expectincluding duration, frequency and number of sets to perform. Patient informed to expect symptoms butshould subside with rest. Should slow head motions if unable to focus on target. Patient verbalized u nderstanding. (perform within her allowable cervical ROM). Access Code: [email or web address] URL: [email or web address] Date: 03/06/2019 Prepared by: Alyse Carias Exercises Standing Gaze Stabilization with Head Rotation - 1-3 reps - 30-40 seconds - 3x daily - 7x weekly Education regarding Rule of 2 -Discussed option of closer location to her home yet noted she would be able to attend at [facility]. Patient's Response to Therapy: Good Home Program with Expected Frequency: As above Timed Code Minutes: 15 minutes Untimed Code Minutes: 20 minutes Total Treatment Time: 35 minutes (late arrival 10 minutes and requested to end 15 minutes early due to appointment conflict) Alyse Carias, PT 03/06/2019 documented in this encounter Plan of Treatment Scheduled Referrals Name Type Priority Associated Diagnoses Order S chedule Rehab Therapies Follow Referral Routine Dizziness Ordered: 03/06/2019 Up Concussion with loss of consciousness of 30 minutes or less, subsequent encounter documented as of this encounter Visit Diagnoses Diagnosis Dizziness - Primary Dizziness and giddiness Concussion with loss of consciousness of 30 minutes or less, subsequent encounter documented in this encounter Care Teams Decaler Relationship Specialty Start Date End Date Jose Holden MD PCP - General Otolaryngology 12/14/17 [facility] [place] [address] documented as of this encounter
--- OUTSIDE RECORDS SUMMARY | 2022-07-06 15:00 | XMS_ITS | Encounter Summary ---
:1965 Author Organization [facility] Address [address], [place] [address] Care Team Providers Name Role Phone Jose Holden MD Primary Care Provider [phone] Reason for Visit Reason Comments POST-OP,EXAM Encounter Details Date Type Department Care Team Description 03/07/2018 Office Visit [facility] P ostop check (Primary Center Neurosurgery/Ortho Dx ) Spine [address] [place], [place] [id number] Social History Tobacco Use Types Packs/Day Years [...] Sign Reading Time Taken Comments Blood Pressure 114/77 03/07/2018 11:15 AM CDT Pulse 73 03/07/2018 11:15 AM CDT Temperature 36.1 ??C (97 ??F) 03/07/2018 11:15 AM CDT Respiratory Rate - - Oxygen Saturation - - Inhaled Oxygen Concentration - - Weight - - Height - - Body Mass Index - - documented in this encounter Patient Instructions Patient InstructionsGMandy renae RN - 03/07/2018 11:00 AM CDT [facility] Patient Instructions Avoid submerging incision under water until your next appointment. Follow up with Dr. Pete Gonzalez on 04/05/18 at 1:00pm. Please have xrays completed prior to this appointment. If tests were ordered, they will be reviewed at your next office visit. Please allow 10-14 days for forms to be completed and 2-3 business days for medication refills. If you have a change in your [...] ask for your understanding. Please call the Neurosurgery/Spine Clinic at [phone] with any further questions or concerns. documented in this encounter Progress Notes Mandy Howe RN - 03/07/2018 11:00 AM CDT A: Pt presents for incision check following removal of anterior hardware and posterior fusion, DOS 02/20/18. Incision is healing well, no drainage or redness. 2 spots of scabbing are present, internal suture material was removed from one of the spots. She states area has been itchy, she believes this is from the steri-strips as she has an allergy to most adhesives. Steri-strips have all been previously removed. She states she is doing better since surgery, swallowing and choking has dramatically improved, she no longer vomits when eating. She also states she can sit up straighter and neck pain has improved. She still has posterior neck and shoulder pain, taking dilaudid every 4 hours. She has tried reducing to 1 tab at a time but then has difficulty making it to 4 hours with tolerable pain level. States her nerve pain has been significant, but she has tried nerve medications in the past but they make herdizzy and she has fallen before. Requesting a refill of dilaudid and tizanidine today. P: Avoid submerging incision under water until next appointment. Will review refill request with care team, TE started. Continue restrictions. Can use ice to the neck/shoulders for nerve pain/itching. F/u with Dr. Gonzalez/Sirisha Hogue NP on 04/05/18 at 1:00pm with xrays prior Mandy Howe RN 03/07/2018, 1:16 PM documented in this encounter Plan of Treatment Not on filedocumented as of this encounter Visit Diagnoses Diagnosis Postop check - Primary Follow-up examination, following unspeci fied surgery documented in this encounter Care Teams Sound Engineer Relationship Specialty Start Date End Date Jose Holden MD PCP - General Otolaryngology 12/14/17 [facility] [address] documented as of this encounter
--- OUTSIDE RECORDS SUMMARY | 2022-07-06 15:00 | XMS_ITS | Encounter Summary ---
:1965 Author [facility] Address [address] [place] [address] Care Team Providers Name Role Phone Jose Holden MD Primary Care Provider [phone] Reason for Visit Reason Comments Revisit trigger point injections Encounter Details Date Type Department Care Team Description 06/29/2018 Office Visit [facility] Myalgia (Primary Dx); [facility] Raul Alvarado MD Medical marijuana use; Management [address] H/O cervical spinal arthrodesis; [address] [place], [place] [address] [phone] Social History Tobacco Use Types Packs/Day Years [...] Sign Reading Time Taken Comments Blood Pressure 123/73 06/29/2018 10:56 AM CDT Pulse 88 06/29/2018 10:56 AM CDT Temperature - - Respiratory Rate - - Oxygen Saturation - - Inhaled Oxygen Concentration - - Weight - - Height - - Body Mass Index - - documented in this encounter Patient Instructions Patient KevinMehdi Gillian Patel - 06/29/2018 10:20 AM CDT Impression: Myalgia Medical marijuana use H/O cervical spinal arthrodesis Tobacco use disorder (HRC) Further testing: None Therapies: Regular exercise/activity Medications: Zanaflex 4-6mg as needed up to 4x per day Equipment: None Referrals & Procedures (i.e injections): Trigger point injection today We performed a trigger point injection today, mainly on the trapezius muscle. The risks of this are small but [...] treatment plan is, please contact me via [employer] online messaging or call the office at and ask to speak to a nurse. Tony Pittman MD Pain Medicine documented in this encounter Progress Notes Tony Pittman MD - 06/29/2018 10:20 AM CDT [facility] Follow-up Visit 06/29/2018 Interim history: Patient returns today for follow up regarding neck and head pain. Patient describes a constant aching pain in the back of the head/occipital area. This pain is worse with movements of the neck. This pain is worse with movements of the neck. She continues to have bilateral neck pain on the left, but pain is much better on the right after trigger point injections. No side effects with trigger point injection. Zanaflex is providing some relief of pain, taking 2mg prn. Has not tried higher dose of zanaflex. No side effects of Zanaflex use. No new symptoms. Still smoking cigarettes. Current treatments include: Oxycodone 5 mg Q6H - Prescribes by [facility], has been taking for many years. Reports that she was previously on a much higher doses Medical Marijuana Lyrica 600 mg total per day Tizanidine 2 mg PRN Original Subjective: 53 y.o. female [...] at a pain clinic in the past. [facility] physical therapy: Past Acupuncture: [...] anterior cervical fusion 2016 Dr. Ihsan Brooke, [facility] past surgical history reviewed with patient. Medications: [...] ??? furosemide (LASIX) 20 MG tablet ??? HYDROmorphone (DILAUDID) 2 MG tablet Take 1-2 Tabs by mouth every 4 hours as needed for Pain. Indications: Moderate to Severe Pain (Patient not taking: Reported on 06/20/2018) 30 Tab 0 ??? lamoTRIgine (LAMICTAL) 200 MG tablet Take 1 Tab by mouth two times a day. Indications: Manic-Depression ??? LATUDA 80 MG tablet Take 1 Tab by mouth daily. Indications: Depressive Phase of Manic-Depression ??? lidocaine (XYLOCAINE) 5 % ointment Apply topically. ??? LYRICA 150 MG capsule ??? medical cannabis patient certified Take 1 Sabine by mouth . ??? naloxone (NARCAN) 4 [...] Tabs by mouth two times a day. (Patient not taking: Reported on 06/20/2018) 06/20/2018: Prn 50 Tab 0 ??? tiotropium (SPIRIVA) 18 MCG inhalation capsule Inhale 18 mcg. ??? tiZANidine (ZANAFLEX) 2 MG tablet Take 1 Tab by mouth every 8 hours as needed. Indications: Muscle Spasticity 40 Tab 0 ??? triamcinolone acetonide (KENALOG) 0.5 % ointment ??? valACYclovir (VALTREX) 500 MG tablet Take 1 Tab by mouth two times daily as needed (with cold sore outbreak). ??? zonisamide (ZONEGRAN) 100 MG capsule Take 3 Caps by mouth two times a day. Indications: Antipsychotic Therapy-Induced Weight Gain No facility-administered medications prior to visit. [place] and [place] Prescription Monitoring Program reviewed Allergies: [...] in her mother. Social history:she lives in [place], [place].she is not currently working. Smokin/2 ppd. Alcohol: None. Street drugs: Medical marijuana. Complete ROS were reviewed and are negative except those noted in the history and physical exam. Objective: BP 123/73 Pulse 88 Estimated body mass index is 30.47 kg/(m^2) [...] cervicalspine. cervical spine range of motion extremely limited.. Tender to palpation left levator scapulae,bilateral splenius capitis, bilateral trapezius. Neuro: AAOx3. CN II-XII are grossly intact. 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 Patient education: I [...] None 8. Follow up: As needed Procedure: Trigger point injections Dx: myalgia Consent: Risks and benefits were discussed with the pt who agreed to the above procedure. The pt signed the consent form. Procedure Description: Pause for the cause was done. Pt was in the sitting position. The posterior neck and upper back was cleaned with alcohol. Using clean technique, a 30G needle, 0.5 inch was used to inject bupivacaine 0.5% in the following areas: 1. Left levator scapulae 1 mL at each of two sites 2. Left semispinalis 1 mL 3. Left upper trapezius 1 mL Total volume injected: 4 ml of bupivacaine 0.5% The pt tolerated the procedure well without complications. Tony Pittman MD Pain Medicine Physical Medicine and Rehabilitation [facility] This document serves as a record of services personally performed by Tony Pittman MD. It was created on his behalf by Gillian Harding, a trained adjunct faculty for medical terminology. The creation of this record is based on the scribe's personal observations and the provider's statements to her. The document has been checked and approved by the attending provider. documented in this encounter Plan of Treatment Not on filedocumented as of this encounter Visit Diagnoses Diagnosis Myalgia - Primary Mylagia and myositis, unspecified Medical marijuana use H/O cervical spinal arthrodesis Arthrodesis status Tobacco use disorder (HRC) Tobacco use disorder documented in this encounter Care Teams Loss Prevention Research Engineer Relationship Specialty Start Date End Date Jose Holden MD PCP - General Otolaryngology 12/14/[address] [place] [id number] documented as of this encounter
--- OUTSIDE RECORDS SUMMARY | 2022-07-06 15:00 | XMS_ITS | Encounter Summary ---
:1965 [facility] Address [address] [place] [address] Care Team Providers Name Role Phone Jose Holden MD Primary Care Provider Reason for Visit Reason Comments UPDATE Pain Encounter Details Date Type Department Care Team Description 06/22/2018 [facility] Gume Pittman R, UPDATE; [facility] [address] [place] [address] [place] [address] [phone] (Wo rk) Social History Tobacco Use Types [...] encounter Nursing Notes Lawrence Arenas RN - 06/26/2018 10:02 AM CDT Sign Erector called patient, notified info below. Sign Erector offered patient appt today however she cannot find a way to get to clinic today. Pt scheduled 06/29 which she accepted. Tony Pittman MD - 06/26/2018 9:53 AM CDT We can repeat trigger point injection if she would like. Ok to overbook for this afternoon. Lawrence Arenas RN - 06/23/2018 9:[address] Pittman please advise: pt states her pain returned post TPI's from 3 days ago. Sign Erector called patient, she states the day of and day after injections all of her bilateral upper back pain was relieved. The 2nd day post injection Left upper back/neck area feels like it is pinching again. Right sided upper back pain is starting to return . Pt states she is needing to take pain pillsagain and asking for next POC. 06/20/18 Pt last seen in clinic by Dr. Pittman. Per clinic note, Assessment: 1. Myalgia: Patient does appear to have significant myofascial pain. Recommend trial of trigger point injections today. 2. H/O cervical spinal arthrodesis 3. Cervical vertebral fusion 4. Fibromyalgia 5. Tobacco use disorder (HRC) 6. 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 Patient education: I went over the above diagnoses and treatment plan with her and answered all of her questions. 2. Imaging review: None 3. Exercise program: Regular exercise and activity 4. Medications: No changes. Do not recommend penitentiary opioid use, continue to decrease use until off. 5. Imaging Orders: None. 6. Interventions: Trigger point injections today Based on history and physical exam, unlikely tumor or mass causing pain 7. Referrals: None 8. Follow up: As needed ?? Procedure: Trigger point injections Dx: 1. Myalgia 2. H/O cervical spinal arthrodesis 3. Cervical vertebral fusion 4. Fibromyalgia 5. Tobacco use disorder (HRC) 6. Status post total left knee replacement Consent: Risks and benefits were discussed with the pt who agreed to the above procedure. The pt signed the consent form. ??Procedure Description: Pause for the cause was done. Pt was in the sitting position. The posteriorneck and upper back was cleaned with alcohol. Using clean technique, a 30G needle, 0.5 inch was usedto inject bupivacaine 0.25% in the following areas:?? 1. Right levator scapulae 1 mL 2. Left levator scapulae 1 mL 3. Right semispinalis 1 mL 4. Left semispinalis 1 mL 5. Right trapezius 1 mL 6. Left trapezius 1 mL ??Total volume injected: 6 ml of bupivacaine 0.5% ??The pt tolerated the procedure well without complications. ??Tony Pittman MD Pain Medicine Physical Medicine and Rehabilitation [facility] Pain Management. Obi Echeverria - 06/22/2018 4:29 PM CDT Pt calling with an update regarding her recent trigger point injections she received on 06/20/18 in clinic. Pt is wondering how long this injection is supposed to last for, as she is beginning to experience pain again only two days later. Pt states that the pain is not quite as bad as prior tothe injection, but starting to pinch in same area. Pt states she is feeling it more so on her left side. The pt is going to talk to Dr. Gonzalez to see if she should also get an order for physical therapy.Please advise. Thank you. Obi Echeverria documented in this encounter Plan of Treatment Not on filedocumented as of this encounter Visit Diagnoses Not on filedocumented in this encounter Care Teams Bookmaker Map Relationship Specialty Start Date End Date Jose Holden MD PCP - General Otolaryngology 12/14/17 [place] [address] documented as of this encounter
--- OUTSIDE RECORDS SUMMARY | 2022-07-06 15:00 | XMS_ITS | Encounter Summary ---
:1965 Author Organization [facility] Address [address] [address] Care Team Providers Name Role Phone Jose Holden MD Primary Care Provider [phone] Reason for Visit Reason Comments Refill Encounter Details Date Type Department Care Team Description 03/07/2018 [facility] Pete Gonzalez MD Ref[facility] Center [facility] [address] [facility] [place], [place] [address] [address] [place] [address] [phone] Social History Tobacco Use Types Packs/Day Years Used Date Smoking Tobacco: Every Day Cigarettes 0.5 30 Smokeless Tobacco: Never Comments: 30 year smoker on and off, 0.5 a day Alcohol Use Standard Drinks/Week Comments No 0 (1 standard drink = 0.6 oz pure alcoho l) Sex Assigned at Date Recorded Not on file documented as of this encounter Nursing Notes Mandy Howe RN - 03/07/2018 11:36 AM CDT Pt requested refill of dilaudid and zanaflex at post-op appt today. She is trying to take one tab at a time of the dilaudid but states it is hard making it to 4 hours with only one tab. Her insurance only covered #30 tabs of the last prescription on 03/01 Using the zanaflex 1-2 tabs/day She is having quite a bit of nerve pain but does not want medication for this because it makes her dizzy and she has fallen in the past. Mandy Howe RN 03/07/2018, 11:38 AM documented in this encounter Plan of Treatment Not on filedocumented as of this encounter Visit Diagnoses Not on filedocumented in this encounter Care Teams Network Admin Relationship Specialty Start Date End Date Jose Holden MD PCP - General Otolaryngology 12/14/[address] [place] [id number] documented as of this encounter
--- OUTSIDE RECORDS SUMMARY | 2022-07-06 15:00 | XMS_ITS | Encounter Summary ---
:1965 Author Organization [facility] Address [address], [place] [address] Care Team Providers Name Role Phone Jose Holden MD Primary Care Provider [phone] Reason for Visit Reason Comments QUESTIONS, GENERAL Encounter Details Date Type Department Care Team Description 02/24/2018 Telephone [facility] Pete Gonzalez MD QUESTIONS, GENERAL Neuroscience Center [address] [facility] Neurosurgery/Ortho [place], [place] [address] [address] [place] [address] [phone] Social History Tobacco Use Types Packs/Day Years [...] encounter Nursing Notes Chava Simon RN - 02/24/2018 9:53 AM CDT Patient informed to wait on until she is seen in clinic on 04/05/2018 to start PT/discuss PT at that time. Patient stated understanding. Chava Simon RN 02/24/2018, 9:56 AM Chantel Angela - 02/24/2018 9:48 AM CDT Angie called stating that she just had surgery on 02/20/18. She was wondering when she could start on PT again. She is currently doing PT which was ordered through [facility] for her shoulder. She is worried that if she stops this PT, her shoulders are going to become stiff again. She would like to get started as soon as possible. She understands that she is not supposed to lift heavy objects. Please review and advise her on what she can do. Chantel Angela 02/24/2018, 9:52 AM documented in this encounter Plan of Treatment Not on filedocumented as of this encounter Visit Diagnoses Not on filedocumented in this encounter Care Teams Guest Services Assistant Relationship Specialty Start Date End Date Jose Holden MD PCP - General Otolaryngology 12/14/17 [facility] [place] [address] documented as of this encounter
--- OUTSIDE RECORDS SUMMARY | 2022-07-06 15:00 | XMS_ITS | Encounter Summary ---
:1965 [facility] Address [address] [address] Care Team Providers Name Role Phone Jose Holden MD Primary Care Provider Reason for Visit Auth/Cert Specialty Diagnoses / Procedures Referred By Contact Refer red To Contact Diagnoses Cervical spondylosis with radiculopathy (HRC) . Procedures FUSION ANTERIOR APPROACH CERVICAL SPINE C2-T3 FUSION POSTERIOR APPROACH CERVICAL SPINE C2-T3 REMOVAL HARDWARE SPINE Anterior plate, Posterior screws rods C2-T3 O-ARM ADD ON (*) IMAGE GUIDANCE ADD ON SPINE (*) Referral ID Status Reason Start Date Expiration Date Visits Requ ested Visits Authorized [id number] 1 1 Encounter Details Date Type Department Care Team Description 02/20/2018 [facility] Pete Gonzalez MD [address] [place] [address] [place] [address] [phone] (Wo rk) Social History Tobacco Use Types [...] Priority Date/Time Associated Diagnosis Comme nts XR C-ARM 2.5-3 Routine 02/20/2018 12:45 PM Result s for this HOURS CDT procedure are i n the results section. documented in this encounter Results XR C-Arm 2.5-3 Hours (02/20/2018 12:45 PM CDT) Anatomical Region Laterality Modality Other Specimen (Source) Anatomical Location Collection Method / Collectio n Time Received Time / Laterality Volume Narrative 02/20/2018 12:45 PM CDT Fluoroscopy provided by a senior cytotechnologist. Exact fluoroscopy time is documented in end of exam information in EPIC Pete Gonzalez MD RAD GD documented in this encounter Visit Diagnoses Not on filedocumented in this encounter Care Teams Social Security Benefits Interviewer Relationship Specialty Start Date End Date Jose Holden MD PCP - General Otolaryngology 12/14/17 [facility] [place] [address] documented as of this encounter
--- OUTSIDE RECORDS SUMMARY | 2022-07-06 15:00 | XMS_ITS | Encounter Summary ---
:1965 [facility] Address [address] [address] Care Team Providers Name Role Phone Jose Holden MD Primary Care Provider [phone] Reason for Referral Procedure/Equipment (Routine) - Incomplete Specialty Diagnoses / Procedures Referred By Contact Refer red To Contact Diagnoses Cervical spondylosis with radiculopathy (HRC) Sirisha Rankin, Procedures XR Cervical Spine AP/Lat Upright [facility]NA [address]ER [address] [place] [address] Referral ID Status Reason Start Date Expiration Date Visits V isits Requested Authorized [id number] Incomplete 02/21/2018 05/23/2019 1 1 (Routine) Specialty Diagnoses / Procedures Referred By Contact Refer red To Contact Sirisha Rankin APRN, CNP [address] [place] [address] Referral ID Status Reason Start Date Expiration Date Visits Requ ested Visits Authorized (Routine) - Incomplete Specialty Diagnoses / Procedures Referred By Contact Refer red To Contact Procedures Marky Gonzalez MD XR C-Arm 0-30 Minutes [address] [place] [address] Referral ID Status Reason Start Date Expiration Date Visits V isits Requested Authorized [id number] Incomplete 02/20/2018 05/22/2019 1 1 Procedure/Equipment (Routine) - Incomplete Specialty Diagnoses / Procedures Referred By Contact Refer red To Contact Procedures Lois Pham, STEPHANIE XR Cervical Spine AP/Lat [address] [place], [place] [address] Referral ID Status Reason Start Date Expiration Date Visits V isits Requested Authorized [id number] Incomplete 02/20/2018 05/22/2019 1 1 (Routine) - Incomplete Specialty Diagnoses / Procedures Referred By Contact Refer red To Contact Procedures Marky Gonzalez MD XR C-Arm 30-[address] [place] [address] XR C-Arm 0-30 Minutes [place], [place] [address] Referral ID Status Reason Start Date Expiration Date Visits V isits Requested Authorized [id number] Incomplete 02/20/2018 05/22/2019 1 1 (Routine) - Incomplete Specialty Diagnoses / Procedures Referred By Contact Refer red To Contact Procedures Marky Gonzalez MD XR C-Arm 2.5-[address] [place] [id number] Referral ID Status Reason Start Date Expiration Date Visits V isits Requested Authorized [id number] Incomplete 02/20/2018 05/22/2019 1 1 Reason for Visit Auth/Cert Specialty Diagnoses / [...] Expiration Date Visits Requ ested Visits Authorized [id number] 1 1 Encounter Details Date Type Department Care Team Description 02/20/2018 - Hospital [facility] Marky Gonzalez, Cervical spondylosis with ra diculopathy (Primary Dx); 02/23/2018 Encounter [address] Ervin MD Cervical vertebral fusion; [place], [place] [id number] 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 ([facility]); [id number] Neck pain; [phone] [facility], Screening procedure; [place] [address] Pseudarthrosis after fusion or arthrodes is; [phone] Bipolar II diso rder ([facility]); (Work) Moderate persistent asthma without statu s asthmaticus without complication Social History Tobacco Use Types Packs/Day Years [...] Sign Reading Time Taken Comments Blood Pressure 124/78 02/23/2018 6:00 AM CDT Pulse 74 02/23/2018 6:00 AM CDT Temperature 36.6 ??C (97.8 ??F) 02/23/2018 6:00 AM CDT Respiratory Rate 16 02/23/2018 6:00 AM CDT Oxygen Saturation 99% 02/23/2018 6:00 AM CDT Inhaled Oxygen Concentration - - Weight 70.8 kg (156 lb) 02/22/2018 5:30 PM CDT Height 152.4 cm (5') 02/22/2018 5:30 PM CDT Body Mass Index 30.47 02/22/2018 5:30 PM CDT documented in this encounter Discharge Summaries Sirisha Raknin, FREELANCE COURT REPORTER, [employer]ETING ANALYST - 02/23/2018 9:09 AM CDT Neurosurgery Discharge Summary Angie Bender is a 52 y.o. old female Date of : 1965 Admit Date: 02/20/2018 5:30 AM Discharge date: 02/23/2018 Service: Neurosurgery Admitting Physician: Dr. Gonzalez Admitting diagnosis: Cervical spondylosis with radiculopathy [M47.22] Discharge Diagnosis: same as above Encounter Diagnoses Name Primary? Cervical spondylosis with radiculopathy (HRC) Yes ??? Cervical vertebral fusion ??? 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 Neck pain ??? Screening procedure ??? Pseudarthrosis after fusion or arthrodesis ??? Bipolar II disorder (HRC) ??? Moderate persistent asthma without status asthmaticus without complication (HRC) POSTOPERATIVE DIAGNOSES: 1. Status post C3-T1 anterior-posterior instrumented fusion. 2. Dysphagia. 3. Pseudoarthrosis. 4. Hardware failure C3-T1. 5. Cervical thoracic kyphosis. 6. Cervical radiculopathy. ?? PROCEDURES: 1. Open anterior inspection of fusion, C6 through T1. 2. Removal of anterior cervical plate with screws, C6 through T1. 3. Intraoperative placement and removal of Taylor-Wells tongs. 4. Hardware removal, C6-T1 posterior. 5. Stealth navigated instrumented fusion C2-3, C3-4, C4-5, C5-6, C6-7, C7- T1, T1-T2, T2-T3. 6. Partial removal of spinous process and lamina from approximately C3-T2. 7. Placement of cross-link T2-T3. 8. Autograft and allograft. Complications: None Consults: Med, PT/OT Pre Operative Hx: This is a 52-year-old woman, who presents with history of multiple spinal surgeries and dysphagia. She had swallow study, which suggested that the anterior cervical plate may be causing or contributing to the dysphagia, as well as vocal cord analysis given her multiple anterior approaches. Both vocal cords were stated as working normally. We discussed risks, benefits, including both dysphagia, and dysphonia. We also discussed significant pain postop given her pain history and she was seen by the pain service. We discussed possible pseudoarthrosis given her nicotine use. Also, pseudoarthrosis given her previous history of surgery and history of pseudoarthrosis. We discussed risks and benefits in greater detail. Patient signed informed consent. Pre op imaging: Cervical xrays from 12/17/2017 personally reviewed INDICATION: Neck pain. Prior cervical spine fusion. COMPARISON: None. ?? FINDINGS: Extensive postoperative changes in the neck include ventral plate and screw hardware with interbody fixation across C6 through T1. There appears to be solid interbody fusion above this extending to C3. Posterior instrumented fusion hardware extends from C3 to T1. No instability is evident between the skull base and C3, although the degree of movement between flexion and extension appears limited. Cervical MRI and cervical CT WO from OSH reviewed Post op imaging: Cervical xrays personally reviewed INDICATION: Spinal fusion. Evaluate stability. COMPARISON: 11/29/2017. ?? FINDINGS: Anterior fixation plate C6 through T1 has been removed. Interbody fusion devices at C6-C7 and C7-T1 are unchanged. The C7-T1 interbody fusion devices anteriorly positioned within the disc space. No apparent incorporation into the vertebral bodies. There is solid fusion of the disc spaces from C3 through C6. Previously noted posterior fixation hardware appears to have been removed. There aretwo separate sets of the posterior fusion hardware. The lateral fusion hardware extends from C2 through T3. The medial fixation hardware involves the lateral masses of the C3, C4, C5, and C6. No evidence for hardware complication. A surgical drain is present. Brief Hospital Course: Angie Bender was admitted to [facility] on 02/20/2018 following posterior C2-T3 with Dr. Marky Gonzalez. She tolerated the procedure well with no complications. Blood losswas minimal. She was awake after surgery and moving all extremities with no obvious motor or sensorydeficits. Postoperatively She has done well. Cervical incision is intact. Pain is controlled with oral pain medication. She reports improvement in pre-op neck pain. She is able to void without difficulty and is tolerating a regular diet with no problems swallowing. She is ambulating independently. Shewas seen and evaluated by PT/OT and cleared for discharge. Vital signs have been stable since surgery. Surgical drain was removed prior to discharge. She discharged to home on POD#3. Labs: Hemoglobin (g/dl) Date Value 02/22/2018 11.1 (L) Normal: 12-17 Hospital Encounter on 02/20/18 (from the past 24 hour(s)) Complete Blood Count-No Diff Result Value Ref Range WBC 10.2 4.0 - 11.0 k/ul RBC 3.36 (L) 4.0 - 5.2 M/ul Hemoglobin 11.1 (L) 12.0 - 16.0 g/dl HCT 33.2 (L) 36.0 - 46.0 % MCV 98.8 80 - 100 fl MCH 33.0 26 - 34 pg MCHC 33.4 32 - 36 g/dl RDW 14.4 11.5 - 14.5 % Platelets 183 150 - 450 k/ul MPV 10.6 9.4 - 12.4 fl Narrative Performed at [facility], [address] [place] [address] Physical Exam: BP 124/78 Pulse 74 Temp 97.8 ??F (36.6 ??C) (Oral) Resp 16 Ht 5' (1.524 m) Wt 156 lb (70.8kg) SpO2 99% BMI 30.47 kg/m2 General: in no acute distress. Alert and oriented x 3; fluent and appropriate Incision: clean, dry and intact Bracing: soft collar HEENT: head normocepahlic, eyes sclera clear. Speech: clear and fluent Respiratory: Breathing unlabored Abdomen: no distention noted Skin: Warm to touch to bilateral upper/lower extremities. Back: Spine observed with erect posture. 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 Status post C3-T1 anterior-posterior instrumented fusion. 2. Dysphagia. 3. Pseudoarthrosis. 4. Hardware failure C3-T1. 5. Cervical thoracic kyphosis. 6. Cervical radiculopathy. ?? PROCEDURES: 1. Open anterior inspection of fusion, C6 through T1. 2. Removal of anterior cervical plate with screws, C6 through T1. 3. Intraoperative placement and removal of Taylor-Wells tongs. 4. Hardware removal, C6-T1 posterior. 5. Stealth navigated instrumented fusion C2-3, C3-4, C4-5, C5-6, C6-7, C7- T1, T1-T2, T2-T3. 6. Partial removal of spinous process and lamina from approximately C3-T2. 7. Placement of cross-link T2-T3. 8. Autograft and allograft. Discharge Instructions Comments: Monitor incision daily for signs of infection (redness, swelling, warmth, drainage). No tubs or pools until incision is completely healed and you are cleared by our team to submerge incision (typically in 6 weeks). If you have steri strips covering your incision: Keep incision covered for two days after surgery, ok to shower with the dressing on. After two days, remove the dressing, no needto cover for showers; OK to let soap and water run over incision, but no scrubbing; pat incision dry. The steri strips will typically fall off in 10-14 days. As they peel back, you can trim the loose edges, but do not peel them off. If you have marylin to close your incision: Keep incision dry and covered for showers with a waterproof dressing until you have your marylin removed. Decrease your narcotic pain medications as tolerated. If there is acetaminophen (tylenol) in your medications, make sure you are not taking more than 4,000 mg daily. As you decrease your narcotics, increase over the counter pain medications such as tylenol. Do NOT take any anti-inflammatories (ibuprof en/aleve/advil/motrin/naprosen/naproxen) because it inhibits bone growth. Use ice and heat for muscle pain. Refills will not be given prior to when medication is due for refill. Please ensure to call our clinic 2-3 days before you run out of medication to allow for processing of your refill. You can only have one provider prescribing pain medications to you. Constipation is a side effect of narcotic pain medications. You may need to use stool softeners and laxatives to have regularbowel movements. Increase your fluids, eating plenty of fiber, and eat green leafy vegetables. You can call the neurosurgery clinic if you are not able to have bowel movements. Call the doctor for these danger signs Comments: Any changes in your incision: redness, swelling, drainage, tenderness, or fever greater than 100.5. Any changes in sensation or decrease in strength to your extremeties. Neurosurgery clinic [phone]. If it is after hours, please call the care line When to Resume Normal Activities: Comments: No lifting greater than 10 pounds. Avoid excessive flexion or extension of the neck. Avoidrepetitive overhead reaching and pulling or pushing motions. Wear soft collar when up out of bed. Okto shower and eat without collar on, try to keep neck in a neutral position. Use a supportive pillowwhen sleeping. You can wear the soft collar for your comfort while you sleep or when reclined, but it is not necessary. No driving while on narcotic pain medications. Regular Diet Comments: A softer diet will be easier for you to eat. Increase fiber and fluids to avoid constipation. Most people do better with wet foods after this surgery, such as yogurt, applesauce, pudding, soups etc. Radiology Comments: You will be scheduled for xrays prior to your appointments with Dr. Gonzalez/Lois Pham PA-C/Sirisha Maher NP. Please go to 2nd floor radiology at the clinic 20 minutes prior to your appointments. XR Cervical Spine AP/Lat Upright Question Answer Comment Appointment urgency? Other 6 weeks postop Do not perform before 02/21/2018 Clinical Presentation (for radiologist) s/p cervical fusion 6 week follow up Clinical History (signs, symptoms, indications)(billing) zOTHER (provide Clinical Hx in comment box) Diet: Resume pre op diet. Increase fluids and fiber to avoid constipation Discharge medications: Current Discharge Medication List START taking these medications Details HYDROmorphone (DILAUDID) 2 MG tablet Take 1-2 Tabs by mouth every 3 hours as needed for Pain. Indications: Moderate to Severe Pain Qty: 90 Tab, Refills: 0 tiZANidine (ZANAFLEX) 2 MG tablet Take 1-2 Tabs by mouth every 8 hours as needed. Indications: Muscle Spasticity Qty: 40 Tab, Refills: 0 CONTINUE these medications which have CHANGED Details cetirizine (ZYRTEC) 5 MG tablet Take 1 Tab by mouth two times a day. Indications: Hives lamoTRIgine (LAMICTAL) 200 MG tablet Take 1 Tab by mouth two times a day. Indications: Manic-Depression LATUDA 80 MG tablet Take 1 Tab by mouth daily. Indications: Depressive Phase of Manic-Depression sennosides-docusate sodium (SENNA-S,SENNA PLUS) 8.6-50 MG per tablet Take 2 Tabs by mouth two times a day. Qty: 50 Tab, Refills: 0 valACYclovir (VALTREX) 500 MG tablet Take 1 Tab by mouth two times daily as needed (with cold sore outbreak). zonisamide (ZONEGRAN) 100 MG capsule Take 3 Caps by mouth two times a day. Indications: Antipsychotic Therapy-Induced Weight Gain CONTINUE these medications which have NOT CHANGED Details acetaminophen (TYLENOL ARTHRITIS) 650 MG controlled release tablet Take 1,300 mg by mouth. albuterol 2.5 mg/3 mL, 0.083%, (PROVENTIL) nebulizer solution Inhale 1 Vial. aspirin (GOODSENSE ASPIRIN) 325 MG tablet Take 325 mg by mouth. Biotin 1 MG CAPS Take 5,000 mcg by mouth. Cholecalciferol (VITAMIN D3) 400 UNITS CAPS Take 10,000 Units by mouth. Cyanocobalamin (B-12) 1000 MCG CAPS Take 5,000 mcg by mouth. diazePAM (VALIUM) 10 MG tablet diphenhydrAMINE (BENADRYL) 25 MG capsule Take 25-50 mg by mouth. DULERA 200-5 MCG/ACT inhaler erythromycin 5 MG/GM (0.5%) eye ointment esomeprazole (NEXIUM) 40 MG capsule estradiol (VIVELLEDOT) 0.05 MG/24HR biweekly patch Folic Acid 0.8 MG Take 800 mcg by mouth. furosemide (LASIX) 20 MG tablet lidocaine (XYLOCAINE) 5 % ointment Apply topically. LYRICA 150 MG capsule naloxone (NARCAN) 4 MG/0.1ML nasal liquid 4 mg by Nasal route. NICOTINE 10 MG inhaler Nutritional Supplements (PYCNOGENOL) 300-30 MG Take 1 Tab by mouth. ondansetron (ZOFRAN-ODT) 4 MG disintegrating tablet Take 4 mg by mouth. potassium chloride (K-DUR,KLOR-CONM) 10 MEQ tablet Take 20 mEq by mouth. tiotropium (SPIRIVA) 18 MCG inhalation capsule Inhale 18 mcg. triamcinolone acetonide (KENALOG) 0.5 % ointment STOP taking these medications budesonide-formoterol (SYMBICORT) 160-4.5 MCG/ACT inhaler Comments: Reason for Stopping: hydrocortisone 2.5 % cream Comments: Reason for Stopping: oxyCODONE (ROXICODONE) 5 MG immediate release tablet Comments: Reason for Stopping: topiramate (TOPAMAX) 25 MG tablet Comments: Reason for Stopping: Discharge Wound Care: No dressing needed as long as incision not draining. Ok to shower without covering incision as long as no draining from incision; no baths; ok to pat dry. Use mild soap (non antibacterial) no lotions, potions, salves, ointments, or unguents on wound Discharge Instructions: No heavy lifting or vigorous physical activity. Walk everyday. Do not lift greater than 10#. Cervical patients do not lift >10# overhead. Soft cervical collar to be worn when up out of bed. OK to remove to shower/eat. Discharge Follow-Up: 1. Follow up with neurosurgery RN on 03/07 at 11AM at [address] [facility], 2nd floor. 2. Follow up with Dr. Gonzalez/Lois Pham PA-C/Sirisha Maher NP [facility] Patient also instructed to call clinic at [phone] or hospital for any questions or concerns. Patient verbalizes understanding and states no further questions at this time. 3. Follow up with PCP for any medical issues Total time spent at the time of discharge was 30 minutes Sirisha Maher APRN, CNP [facility]#[phone] documented in this encounter Discharge Instructions Discharge InstructionsDonna Ellis RN - 02/23/2018 10:42 AM CDT Hospital Contact Information [address] [address] General Information Discharging physician: Dr. Gonzalez [facility] Resources Emergency & Urgently Needed Care: For emergencies call 911 and/or get medical help right away. If you are a [facility] member and have medical needs after clinic hours you may [facility] the [facility] [phone] or . Fall Prevention Recommendations ??? Follow therapy recommendations around equipment use and activity progression ??? Remove trip hazards to keep pathways clear in the home ??? Remove throw rugs ??? Keep frequently used items in easy to reach places ??? Use non-slip mats in the bathtub and on shower floors ??? Improve lighting in your home in all areas ??? Wear shoes or non-slip footwear inside the house Discharge Instr - SafetyLetDonna moran RN - 02/23/2018 10:43 AM CDT Call your clinic or seek medical help if you have any sudden change in your condition or if you haveany of the following: chest pain difficulty breathing fever greater than 101 degrees F pain not relieved with usual methods shortness of breath drainage from wound, redness or streak(s) from wound and increasing soreness around wound documented in this encounter Medications at Time of Discharge Medication Sig Dispensed Refills Start Date End Date acetaminophen (TYLENOL Take 1,300 mg by 0 ARTHRITIS) 650 MG mouth. controlled release tablet albuterol 2.5 mg/3 mL, Inhale 1 Vial. 0 0.083%, (PROVENTIL) nebulizer solutionIndications: Screening procedure, Pseudarthrosis after fusion or arthrodesis Biotin 1 MG Take 5,000 mcg by 0 CAPSIndications: mouth. Screening procedure, Pseudarthrosis after fusion or arthrodesis cetirizine (ZYRTEC) 5 MG Take 1 Tab by mouth 0 tabletIndications: two times a day. Urticaria Indications: Hives Cholecalciferol (VITAMIN Take 10,000 Units by 0 D3) 400 UNITS mouth. CAPSIndications: Screening procedure, Pseudarthrosis after fusion or arthrodesis Cyanocobalamin (B-12) Take 5,000 mcg by 0 1000 MCG mouth. CAPSIndications: Screening procedure, Pseudarthrosis after fusion or arthrodesis diazePAM (VALIUM) 10 MG 0 11/25/2017 tabletIndications: Screening procedure, Pseudarthrosis after fusion or arthrodesis diphenhydrAMINE Take 25-50 mg by 0 (BENADRYL) 25 MG mouth. capsuleIndications: Screening procedure, Pseudarthrosis after fusion or arthrodesis DULERA 200-5 MCG/ACT 0 09/09/2017 inhalerIndications: Screening procedure, Pseudarthrosis after fusion or arthrodesis erythromycin 5 MG/GM 0 11/22/2017 (0.5%) eye ointmentIndications: Screening procedure, Pseudarthrosis after fusion or arthrodesis esomeprazole (NEXIUM) 40 0 11/19/2017 MG capsuleIndications: Screening procedure, Pseudarthrosis after fusion or arthrodesis estradiol (VIVELLEDOT) 0 10/30/2017 0.05 MG/24HR biweekly patchIndications: Screening procedure, Pseudarthrosis after fusion or arthrodesis Folic Acid 0.8 Take 800 mcg by 0 MGIndications: Screening mouth. procedure, Pseudarthrosis after fusion or arthrodesis furosemide (LASIX) 20 MG 0 10/05/2017 tabletIndications: Screening procedure, Pseudarthrosis after fusion or arthrodesis lamoTRIgine (LAMICTAL) Take 1 Tab by mouth 0 01/27 200 MG two times a day. tabletIndications: Indications: Bipolar Mood Disorder Manic-Depression LATUDA 80 MG Take 1 Tab by mouth 0 02/22/2018 tabletIndications: daily. Indications: Depressive Phase Bipolar Depressive Phase of Mood Disorder Manic-Depression lidocaine (XYLOCAINE) 5 Apply topically. 0 % ointmentIndications: Screening procedure, Pseudarthrosis after fusion or arthrodesis LYRICA 150 MG 0 11/04/2017 capsuleIndications: Screening procedure, Pseudarthrosis after fusion or arthrodesis naloxone (NARCAN) 4 4 mg by Nasal route. 0 MG/0.1ML nasal liquidIndications: Screening procedure, Pseudarthrosis after fusion or arthrodesis NICOTINE 10 MG 0 09/12/2017 inhalerIndications: Screening procedure, Pseudarthrosis after fusion or arthrodesis Nutritional Supplements Take 1 Tab by mouth. 0 (PYCNOGENOL) 300-30 MGIndications: Screening procedure, Pseudarthrosis after fusion or arthrodesis ondansetron (ZOFRAN-ODT) Take 4 mg by mouth. 0 4 MG disintegrating tabletIndications: Screening procedure, Pseudarthrosis after fusion or arthrodesis potassium chloride Take 20 mEq by mouth. 0 (K-DUR,KLOR-CONM) 10 MEQ tabletIndications: Screening procedure, Pseudarthrosis after fusion or arthrodesis sennosides-docusate Take 2 Tabs by mouth 50 Tab 0 2017 sodium (SENNA-S,SENNA two times a day. PLUS) 8.6-50 MG per tablet tiotropium (SPIRIVA) 18 Inhale 18 mcg. 0 MCG inhalation capsuleIndications: Screening procedure, Pseudarthrosis after fusion or arthrodesis triamcinolone acetonide 0 10/31/2017 (KENALOG) 0.5 % ointmentIndications: Screening procedure, Pseudarthrosis after fusion or arthrodesis valACYclovir (VALTREX) Take 1 Tab by mouth 0 01/27 500 MG two times daily as tabletIndications: needed (with cold Screening procedure, sore outbreak). Pseudarthrosis after fusion or arthrodesis zonisamide (ZONEGRAN) Take 3 Caps by mouth 0 01/27 100 MG two times a day. capsuleIndications: Indications: Antipsychotic Antipsychotic Therapy-Induced Weight Therapy-Induced Gain Weight Gain aspirin (GOODSENSE Take 325 mg by mouth. 0 201703/07/2018 ASPIRIN) 325 MG tablet HYDROmorphone (DILAUDID) Take 1-2 Tabs by 90 Tab 0 02/2203/01/2018 2 MG tabletIndications: mouth every 3 hours Moderate to Severe Pain as needed for Pain. Indications: Moderate to Severe Pain tiZANidine (ZANAFLEX) 2 Take 1-2 Tabs by 40 Tab 0 201703/07/2018 MG tabletIndications: mouth every 8 hours Muscle Spasticity as needed. Indications: Muscle Spasticity documented as of this encounter Progress Notes Donna Ellis RN - 02/23/2018 11:50 AM CDT [facility] Discharge Note - Nursing Admission Date/Time: 02/20/2018 5:30 AM Attending MD: Patient discharged: to Home. Discharge Date: 02/23/2018 Discharge Time: 12:01 PM Patient accompanied by: relative. Transported by: Wheelchair Valuables were taken home by patient: Yes Discharge instructions given and explained to patient: Yes Discharge Patient Education Plan completed, taught, and provided to patient/caregiver at discharge: Yes ?? Discussed medication risks with patient ?? Patient understands medications usage and side effects ?? Patient understands diagnosis ?? Action Plan for management of symptoms/side effects/complications requiring medical attention established and shared with patient/caregiver Was patient discharged on Warfarin? {(Do not delete line; Warfarin documentation is required) No Patients general condition on discharge: Stable. Discharge meds and instructions reviewed with patient and pt's family. Pt sent home with senna, tizanidine and hydromorphone in sealed and intact container. All medical devices (telemetry/IV/etc) unless otherwise ordered, have been removed and stored: Yes Report Completed by: Donna Ellis RN --- End of Report --- Sneha Maher, Sirisha Cleaya, FREELANCE COURT REPORTER, GREEN ENERGY MARKETING ANALYST - 02/23/2018 9:02 AM CDT Neurosurgery Progress Note Date of service: 02/23/2018 Subjective: Sitting up in chair eating breakfast. Reports her pain is better and she slept last night. No difficulty with swallowing. Tolerating diet, passing flatus. Has had BM. Discussed home care, dressing changes. Patient reports that the adhesive on dressings irritate her skin. She will minimize dressing use. Plan discussed to dc home this AM. Objective: Vitals - BP 124/78 Pulse 74 Temp 97.8 ??F (36.6 ??C) (Oral) Resp 16 Ht 5' (1.524 m) Wt 156 lb (70.8kg) SpO2 99% BMI 30.47 kg/m2 Temp (24hrs), Min:97.5 ??F (36.4 ??C), Max:97.9 ??F (36.6 ??C) Physical Exam - Awake, alert General: in no acute distress Incision: covered, dressing dry. Soft collar in place Hemovac with serosang output Respiratory: Breathing unlabored. RA Abdomen: no distention noted Strength: QUINTANILLA Imaging: No new imaging Drains: 30 mL/8 hours 65/50/30 mL/24 hours LABS: Hemoglobin (g/dl) Date Value 02/22/2018 11.1 (L) Normal: 12-17 Sodium (mmol/L) Date Value 02/21/2018 138 INR (no units) Date Value 02/20/2018 1.0 Platelets (k/ul) Date Value 02/22/2018 183 Assessment 52 year old female s/p multiple previous cervical spine surgeries including C3- T1 posterior fusion (done in [place] approx 6 years ago), with C6-T1 pseudoarthrosis, s/p C6-T1 ACDF approx [address] Ihsan Brooke, still with pseudoarthrosis; ongoing neck pain and radicular pain, Occipital neuralgia. Significant dysphagia and dysphonia s/p previous surgeries. Now s/p removal of anterior plate, extension/revision of posterior fusion C2-T3 on 02/20/[address] Marky Gonzalez Chronic opioid and medical cannabis use Acute blood loss anemia Plan: Pain management following. Appreciate recs. DC drain this AM Upright xrays reviewed Up with assistance Soft collar when OOB, PRN in bed for comfort Passed PT/OT Acute blood loss anemia--asymptomatic, no indication to transfuse. Recheck today. Dispo: Dc home today ?? Sirisha Maher, NIKKY, GREEN ENERGY MARKETING ANALYST 02/23/2018, 9:02 AM Neurosurgery Pgr#[phone] Jolene Kaur PA-C - 02/22/2018 12:45 PM CDT Brief medicine note: attempted to see patient and she was out smoking. patient not seen. D/w RN no active medical issues. Medications reconciled for discharge. Jolene Kaur PA-C ?? Lois Pham PA-C - 02/22/2018 9:05 AM CDT Neurosurgery Progress Note Date of service: 02/22/2018 Subjective: Swallowing is better. Arms feel good except left shoulder (previous surgery). Neck pain tolerable. Objective: Vitals - BP 107/70 Pulse 76 Temp 98.8 ??F (37.1 ??C) (Oral) Resp 18 Ht 5' (1.524 m) Wt 156 lb (70.8kg) SpO2 98% BMI 30.47 kg/m2 Temp (24hrs), Min:97.2 ??F (36.2 ??C), Max:98.8 ??F (37.1 ??C) Physical Exam - Awake, alert General: in no acute distress Incision: covered, minimal shadowing Hemovac with serosang output Respiratory: Breathing unlabored Abdomen: no distention noted Strength: QUINTANILLA Imaging: Personally reviewed XR CERVICAL SPINE AP/LAT UPRIGHT 02/21/2018 9:50 AM ?? INDICATION: Spinal fusion. Evaluate stability. COMPARISON: 11/29/2017. ?? FINDINGS: Anterior fixation plate C6 through T1 has been removed. Interbody fusion devices at C6-C7 and C7-T1 are unchanged. The C7-T1 interbody fusion devices anteriorly positioned within the disc space. No apparent incorporation into the vertebral bodies. There is solid fusion of the disc spaces from C3 through C6. Previously noted posterior fixation hardware appears to have been removed. There aretwo separate sets of the posterior fusion hardware. The lateral fusion hardware extends from C2 through T3. The medial fixation hardware involves the lateral masses of the C3, C4, C5, and C6. No evidence for hardware complication. A surgical drain is present. Drains: 30 mL/8 hours 170 mL/24 hours LABS: Hemoglobin (g/dl) Date Value 02/21/2018 10.7 (L) Normal: 12-17 Sodium (mmol/L) Date Value 02/21/2018 138 INR (no units) Date Value 02/20/2018 1.0 Platelets (k/ul) Date Value 02/21/2018 186 Assessment 52 year old female s/p multiple previous cervical spine surgeries including C3- T1 posterior fusion (done in [place] approx 6 years ago), with C6-T1 pseudoarthrosis, s/p C6-T1 ACDF approx [address] Ihsan Brooke, still with pseudoarthrosis; ongoing neck pain and radicular pain, Occipital neuralgia. Significant dysphagia and dysphonia s/p previous surgeries. Now s/p removal of anterior plate, extension/revision of posterior fusion C2-T3 on 02/20/[address] Marky Gonzalez Chronic opioid and medical cannabis use Acute blood loss anemia Plan: Pain management following. Appreciate recs. Will monitor drain one more shift given high output in previous shift--if <30 on days, will DC drain Upright xrays prior to DC Up with assistance Soft collar when OOB, PRN in bed for comfort Passed PT/OT Acute blood loss anemia--asymptomatic, no indication to transfuse. Recheck today. Dispo: Anticipate home today vs tomorrow pending drain output on days ?? Lois Pham PA-C, 02/22/2018, 9:05 AM Neurosurgery [phone] He Reyes MD - 02/22/2018 8:29 AM CDT Images from the original note were not included. [facility] Consultation Follow up DATE OF VISIT: 02/22/2018 ASSESSMENT: 1. S/p C2-T3 posterior fusion; removal of hardware 2. 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 Fibromyalgia 4. Bipolar II 5. Hx of gastric bypass 6. Asthma 7. PTSD 8. Opioid dependence 9. Chronic benzodiazepine use TREATMENT RECOMMENDATIONS/PLAN: *Please note that unless specifically noted below, the inpatient pain service does not write orders. 1. Stop IV dilaudid. 2. No changes to other medications at this time. She was asking about increasing her PO dilaudid - but I encouraged her to keep it at the current dosing parameters, as she already is at a high overall dose (currently at 210 OME with just PO dilaudid). Risks of opioids were reviewed with the patient. She has narcan at home. Her pain appears to be wellcontrolled on her current regimen, but I would recommend a continual taper plan as an outpatient during her recovery. Thank you for consulting the Inpatient Pain Management Service. Please contact me with any questionsor concerns. He Reyes M.D. [facility] [phone] INTERVAL HISTORY: She started tizanidine last night and increased the lyrica to her home dose yesterday 150/450. Overall she is feeling much better and may be going home later on today depending on her pain control. Denies any side effects from the pain medications. She was asking about increasing the PO dilaudid. REVIEW OF 10 BODY SYSTEMS: ROS: 10 point ROS neg other than the symptoms noted above in the intervalhistory INPATIENT MEDICATIONS PERTINENT TO THIS CONSULT: Tylenol 1000mg TID Dilaudid 0.2-0.4mg IV q 3 hours PRN (1.4mg yesterday) Dilaudid tab 2-4mg q 3 hours PRN pain (28mg yesterday) lamictal lyrica 150mg/450mg Lidocaine patch Tizanidine 4mg Q 8 hours PRN CURRENT MEDICATIONS: Current Facility-Administered Medications Ordered in Epic Medication Dose Route Frequency Provider Last Rate Last Dose ??? acetaminophen (TYLENOL) tablet 1,000 mg 1,000 mg Oral TID Lois Pham PA-C 1,000 mg at 02/22/18 0743 ??? benzocaine-menthol (CEPACOL) lozenge 1 Lozenge 1 Lozenge Oral PRN per Parameters Lois Pham PA-C ??? bisacodyl (DULCOLAX) rectal suppository 10 mg 10 mg Rectal DAILY PRN Lois Pham PA-C ??? cyanocobalamin (VITAMIN B12) tablet 500 mcg 500 mcg Oral Daily Jolene Kaur PA-C 500 mcg at 02/22/18 0742 ??? diphenhydrAMINE (BENADRYL) capsule 25-50 mg 25-50 mg Oral Q6H PRN Lois Pham PA-C ??? fluticasone-salmeterol (ADVAIR) 250-50 MCG/DOSE diskus inhaler 1 Puff 1 Puff Inhalation BID Jolene Kaur PA-C 1 Puff at 02/22/18 0744 ??? folic acid tablet 0.8 mg 0.8 mg Oral Daily Jolene Kaur PA-C 0.8 mg at 02/22/18 0743 ??? furosemide (LASIX) tablet 20 mg 20 mg Oral Daily Jolene Kaur PA-C 20 mg at 02/22/18 0743 ??? HYDROmorphone (DILAUDID) injection 0.2-0.4 mg 0.2-0.4 mg Intravenous Q3H PRN Lois Pham PA-C 0.4 mg at 02/22/18 0704 ??? HYDROmorphone (DILAUDID) tablet 2-4 mg 2-4 mg Oral Q3H PRN Lois Pham PA-C 4 mg at 02/22/18 0540 ??? ketamine 1 mg/mL IV syringe INFUSION 5 mg/hr Intravenous Intra-Op Dhara Tracy I, PharmD ??? lamoTRIgine (LaMICtal) tablet 200 mg 200 mg Oral BID Jolene Kaur PA-C 200 mg at 02/22/18 0743 ??? lansoprazole (PREVACID) capsule 30 mg 30 mg Oral Daily at 6 am Jolene Kaur PA-C 30 mg at 02/22/18 0540 ??? lidocaine (LIDODERM) 5 % patch 2 Patch 2 Patch Transdermal Daily Lois Pham PA-C ??? loratadine (CLARITIN) tablet 5 mg 5 mg Oral Daily Jolene Kaur PA-C 5 mg at 02/22/18 0744 ??? lurasidone (LATUDA) tablet 80 mg 80 mg Oral Daily Jolene Kaur PA-C 80 mg at 02/22/18 0743 ??? naloxone (NARCAN) injection 0.2 mg 0.2 mg Intravenous PRN per Parameters Lois Pham PA-C ??? ondansetron (ZOFRAN-ODT) disintegrating tablet 4 mg 4 mg Oral Q8H PRN Jolene Kaur PA-C 4 mg at 02/22/18 0708 ??? polyethylene glycol (MIRALAX) oral powder 17 g 17 g Oral Daily Lois Pham PA-C 17 g at 02/22/18 0742 ??? potassium chloride (K-DUR,KLOR-CONM) extended release tablet 20 mEq 20 mEq Oral BID Jolene Kaur PA-C 20 mEq at 02/22/18 0744 ??? pregabalin (LYRICA) capsule 150 mg 150 mg Oral Daily JefryBeryl abbasi Sapna 150 mg at 02/22/18 0743 And ??? pregabalin (LYRICA) capsule 450 mg 450 mg Oral At Bedtime JefryBeryl joe A 450 mg at 02/21/18 2108 ??? prochlorperazine (COMPAZINE) injection 10 mg 10 mg Intravenous Q6H PRN Lois Pham PA-C ??? sennosides-docusate sodium (SENNA-S,SENNA PLUS) 8.6-50 MG per tablet 2 Tab 2 Tab Oral BID Lois Pham PA-C 2 Tab at 02/22/18 0744 ??? sodium chloride 0.9% injection 3 mL 3 mL Intravenous Q8H Lois Pham PA-C 3 mL at 02/22/18 0753 ? ? sodium chloride 0.9% injection 3-5 mL 3-5 mL Intravenous PRN before&after medications or labdraw Lois Pham PA-C ??? tiotropium (SPIRIVA) inhalation capsule 18 mcg 18 mcg Inhalation Daily Jolene Kaur PA-C 18 mcg at 02/22/18 0744 ??? tiZANidine (ZANAFLEX) tablet 2-4 mg 2-4 mg Oral Q8H PRN Lois Pham PA-C 4 mg at 02/22/18 0400 ??? zonisamide (ZONEGRAN) capsule 300 mg 300 mg Oral BID Jolene Kaur PA-C 300 mg at 02/22/18 0743 Current Outpatient Prescriptions Ordered in [facility] Medication Sig Dispense Refill ??? sennosides-docusate sodium (SENNA-S,SENNA PLUS) 8.6-50 MG per tablet Take 2 Tabs by mouth two times a day. 50 Tab 0 PHYSICAL EXAMINATION: VITAL SIGNS: Blood pressure 107/70, pulse 76, temperature 98.8 ??F (37.1 ??C), temperature source Oral, resp. rate 18, height 5' (1.524 m), weight 70.8 kg (156 lb), SpO2 98 %. ??? GEN AAO, no signs of sedation or somnulence ??? HEENT: Neck is in a collar ??? CV: Pulse is regular ??? Resp: respirations even ??? Gait: patient in bed ??? PSYCHIATRIC/BEHAVIORAL/OBSERVATIONS: Normal affect TIME SPENT: 35 minutes including 50% time [id number] time counseling her about her diagnosis and treatment options, and coordinating care with the primary team. DECISION-MAKING: The level of decision-making in this case is high/complex due to the complexity of medical problems, acute/chronic pain, opioid analgesia issues, and behavioral factors. He Reyes M.D. Brooklyn Whittington - 02/21/2018 1:47 PM CDT [facility] Care Management Screening Admission Info: Cognitive capacity prior to admission: oriented Independent with ADLs (Prior to Admission)? Yes Change in Functional Status Since Onset of Current Illness/Injury: no Living Environment: Lives With: other (see comments) (roommate) Living Arrangements: apartment Follow Up: Pt agrees with no discharge needs at this time Additional Comments: I met with the pt and her roommate, Kennedi. The pt's roommate is able to be home to assist her as needed. The pt's son drives her to appts. She see Dr Dr Estephanie Franz at [facility]. No DC needs anticipated. I verified the demographics on the face sheet for the correct address, phone number, emergency contact and PCP information. Brooklyn Whittington RN CM [phone] Lois Pham PA-C - 02/21/2018 9:23 AM CDT Neurosurgery Progress Note Date of service: 02/21/2018 Subjective: Feels sore. Upset she did not have MATRIX WORKER overnight. Wants to go smoke. Wants to go home. Objective: Vitals - BP 114/64 Pulse 61 Temp 98 ??F (36.7 ??C) (Oral) Resp 18 Ht 5' (1.524 m) Wt 156 lb (70.8 kg) SpO2 98% BMI 30.47 kg/m2 Temp (24hrs), Min:98 ??F (36.7 ??C), Max:99.2 ??F (37.3 ??C) Physical Exam - Awake, alert. Appears comfortable. General: in no acute distress Incision: covered, minimal shadowing on posterior dressing Respiratory: Breathing unlabored Abdomen: no distention noted Strength: QUINTANILLA Imaging: No new imaging Drains: 165 mL/8 hours 180 mL/24 hours LABS: Hemoglobin (g/dl) Date Value 02/21/2018 10.7 (L) Normal: 12-17 Sodium (mmol/L) Date Value 02/21/2018 138 INR (no units) Date Value 02/20/2018 1.0 Platelets (k/ul) Date Value 02/21/2018 186 Assessment 52 year old female s/p multiple previous cervical spine surgeries including C3- T1 posterior fusion (done in [place] approx 6 years ago), with C6-T1 pseudoarthrosis, s/p C6-T1 ACDF approx [address] Ihsan Brooke, still with pseudoarthrosis; ongoing neck pain and radicular pain, Occipital neuralgia. Significant dysphagia and dysphonia s/p previous surgeries. Now s/p removal of anterior plate, extension/revision of posterior fusion C2-T3 on 02/20/[address] Marky Gonzalez Chronic opioid and medical cannabis use Plan: Complete perioperative abx (24 hours) Pain management following. Will await recs. Generally transition to orals POD 1. I discussed at length with Angie her pain management, and that there were a couple of options including MATRIX WORKER vs IV pain medications for post op pain control, and rationale for non MATRIX WORKER at this time. Did discuss that would not recommend DC as drain still has high output. Upright xrays prior to DC Up with assistance Continue hemovac until <30/shift Soft collar when OOB, PRN in bed for comfort PT/OT Dispo: Anticipate home in next 1-2 days pending drain output Lois Pham PA-C, 02/21/2018, 9:23 AM Neurosurgery [phone] He Reyes MD - 02/20/2018 1:20 PM [address] Note from Dr. Covarrubias on 02/13/18: ? 1. On the day of surgery please order an Inpatient pain consult 2. Ketamine 5mg/h during surgery ?? Recommendations for opioids: ?? If using a MATRIX WORKER: No oral opioids Start a MATRIX WORKER pump with Dilaudid continuous IV infusion at a basal rate of 0.1 mg/hr with MATRIX WORKER boluses of 0.2-0.4 mg every 10 minutes. ?? If not using a MATRIX WORKER: Start dilaudid 2-4mg q3h prn (alternatively can consider oxycodone 5-10mg q4h prn) Dilaudid IV 0.2-0.4mg q3h prn ? Other recommendations: ?? 1. As soon as patient tolerates PO, restart lyrica and valium at preadmission doses 2. Complimentary Care Consult including acupuncture. ?? Marky Gonzalez MD - 02/20/2018 8:06 AM CDT Discussed with patient risks of burn with remaining piercings. The remainder of her jewelry could not be physically removed and some were told to us to be permanent. The patient is willing to accept the risks of facial brothers due to the need for spine surgery. Given the numerous surgeries she has had on her neck she is at especially high risk for complications including, but not limited to dysphagia, vocal cord paresis, infection, pseduarthrosis, hardware failure, injury of nervous tissue, etc. Informed consent signed. documented in this encounter Procedure Notes Lois Pham PA-C - 02/20/2018 3:[address] [facility] Brief Operative Progress Note Surgery Date: 02/20/2018 Surgeon(s) and Role: * Marky Gonzalez MD - Primary PHYSICIAN INSURANCE FOLLOW UP SPECIALIST-Meka Pham Pre-op Diagnosis: * Cervical spondylosis with radiculopathy [M47.22] * Chronic neck pain [M54.2, G89.29] * Hardware failure of anterior column of spine (HRC) [T84.216A] Post-op Diagnosis: * Cervical spondylosis with radiculopathy [M47.22] * Chronic neck pain [M54.2, G89.29] * Hardware failure of anterior column of spine (HRC) [T84.216A] Procedure(s) (LRB): FUSION POSTERIOR APPROACH CERVICAL SPINE C2-T3, REMOVAL HARDWARE SPINE Anterior plate and Posterior screws and rods C2-T3, Image Guidance (N/A) EBL: 250 Specimens: * No specimens in log * Complications / Findings: None/see dictated operative report Plan: Extubated to PACU, to S10 when able Complete perioperative abx (24 hours) Pain management consult: Start dilaudid 2-4mg q3h prn (alternatively can consider oxycodone 5-10mg q4h prn) Dilaudid IV 0.2-0.4mg q3h prn Upright xrays in AM Up with assistance Hemovac to suction Soft collar when OOB PT/OT Medicine consult Indications: I was asked by Dr. Gonzalez to assist with surgery. I helped position and prep the patient. I retracted soft tissue for operative exposure. I suctioned fluids and provided traction for dissection. I helpedDr. Gonzalez identify and protect important structures. 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 Gonzalez needed the operative exposure and assistance that I provided. This allowed a safe and efficient procedure. It was also important that I help ligate blood vessels to maintain hemostasis and reduce the bleeding risk. The assistance that I provided reduced operative time which meant less general anesthetic for the patient and a safer procedure. Lois Pham PA-C, 02/20/2018, 3:25 PM Neurosurgery [phone] Marky Gonzalez MD - 02/20/2018 12:00 AM CDT ANGIE BENDER CSN: [id number] OPERATIVE REPORT DATE OF SURGERY: 02/20/2018 : 1965 SURGEON: MARKY GONZALEZ MD INSURANCE FOLLOW UP SPECIALIST: Lois Pham PA-C. PREOPERATIVE DIAGNOSES: 1. Status post C3-T1 anterior-posterior instrumented fusion. 2. Dysphagia. 3. Pseudoarthrosis. 4. Hardware failure C3-T1. 5. Cervical thoracic kyphosis. 6. Cervical radiculopathy. POSTOPERATIVE DIAGNOSES: 1. Status post C3-T1 anterior-posterior instrumented fusion. 2. Dysphagia. 3. Pseudoarthrosis. 4. Hardware failure C3-T1. 5. Cervical thoracic kyphosis. 6. Cervical radiculopathy. PROCEDURES: 1. Open anterior inspection of fusion, C6 through T1. 2. Removal of anterior cervical plate with screws, C6 through T1. 3. Intraoperative placement and removal of Taylor-Wells tongs. 4. Hardware removal, C6-T1 posterior. 5. Stealth navigated instrumented fusion C2-3, C3-4, C4-5, C5-6, C6-7, C7- T1, T1-T2, T2-T3. 6. Partial removal of spinous process and lamina from approximately C3-T2. 7. Placement of cross-link T2-T3. 8. Autograft and allograft. ANESTHESIA: General. POSITION: Supine, then prone. ESTIMATED BLOOD LOSS: 250 cc. COMPLICATIONS: None. INDICATION FOR PROCEDURE: This is a 52-year-old woman, who presents with history of multiple spinal surgeries and dysphagia. She had swallow study, which suggested that the anterior cervical plate may be causing or contributing to the dysphagia, as well as vocal cord analysis given her multiple anterior approaches. Both vocal cords were stated as working normally. We discussed risks, benefits, including both dysphagia, and dysphonia. We also discussed significant pain postop given her pain history and she was seen by the pain service. We discussed possible pseudoarthrosis given her nicotine use. Also, pseudoarthrosis given her previous history of surgery and history of pseudoarthrosis. We discussed risks and benefits in greater detail. Patient signed informed consent. DESCRIPTION OF PROCEDURE: Patient was brought to the operating room in a supine position. She was intubated. We used fluoroscopy to approximate the anterior incision. We made a horizontal incision on the right side of the neck using a 10 blade. We used blunt dissection to arrive at the prevertebral space. We exposed the anterior cervical plate, and removed bilateral screws from C6, C7, and T1. The plate was then removed, and we directly visualized the anterior cervical vertebral bodies with possible pseudoarthrosis between C6-7 and C7-T1 as there was motion. This was an anterior direct inspection of fusion. We filled the holes where the screws came out with Surgiflo and bone wax. We then placed steroids and vancomycin powder, as well as obtain more hemostasis and closed the incision in a stepwise fashion using absorbable suture. We placed Taylor-Wells tongs and then flipped the patient prone in the operating room. She was shaved, prepped, and draped in the usual sterile fashion. Using a 10 blade, we incised the posterior neck from approximately C2 down to T3. We then used Bovie cautery to expose the dorsal bony landmarks of the spine, as well as dorsal bony elements of the spine, as well as the old hardware. Given the long time period that had passed since her posterior procedure, we had difficulty removing old hardware. We were able to cut bilateral rods between C7 and T1, and removed the T1 hardware completely bilaterally. We did inspect the fusion from C3-T1 with some evidence of pseudoarthrosis between C6-7 and C7-T1 given motion between the elements of the hardware. This was our direct inspection of fusion from C3-T1. Since we were not able to remove the hardware from C3-C7, we then placed lateral mass screws from C3-C7 bilaterally with bilateral C2 pars screws. Given the extensive fusion mass from C3-C6, we placed several lateral mass screws on the patient's left side, and were able to place fewer lateral mass screws on the right side, but the lateral mass screws spanned the distance between C3-C7. As a note, we did place this hardware under Stealth navigation. We then also used Stealth navigation to place bilateral pedicle screws at T1, T2, and T3. We then used a tapered leslie to connect all of the lateral mass screws, pars screws, as well as pedicle screws, and then removed the spinous process of T2 as a prominent spinous process was giving the patient pain, as well as allowed us to place a cross connector in the T2-T3 region. We final tightened and torqued all the implants. We decorticated the relevant spinous process, transverse process, lateral masses, pars between C2-T3, as well as removed some spinous process from approximately C3 down to T2 to promote more fusion and to allow more decortication. We then used the decorticated bone as local autograft and supplemented with allograft. We placed vancomycin powder, a subfascial drain, and then closed the incision in a stepwise fashion using absorbable suture. All counts were correct, and there were no complications during this case. The assistance of Lois was needed in order to perform surgery with maximum safety and efficacy in a timely fashion. I was scrubbed and present for the entire procedure, performing all critical portions. MD YOLANDE COLEMAN/ALESSANDRO /[id number] cc: MARKY GONZALEZ MD documented in this encounter Consult Notes He Reyes MD - 02/21/2018 8:33 AM CDTAssociated Order(s): PAIN MANAGEMENT CONSULT Images from the original note were not included. [facility] Consultation DATE OF CONSULT: 02/21/2018 REASON FOR PAIN CONSULTATION: Angie Bender is a 52 y.o. female I am seeing in consultation at the request of Lois Pham for evaluation and recommendations for her inpatient pain management. CHIEF PAIN COMPLAINT: neck pain ASSESSMENT: 1. S/p C2-T3 posterior fusion; removal of hardware 2. 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 Fibromyalgia 4. Bipolar II 5. Hx of gastric bypass 6. Asthma 7. PTSD 8. Opioid dependence 9. Chronic benzodiazepine use I reviewed the risks of opioid therapy with the patient, and the additive risk and CDC warning/contraindication of combined benzodiazepine and opioid therapy, and the risk. 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 She also reports having access to Narcan at her house. TREATMENT RECOMMENDATIONS/PLAN: *Please note that unless specifically noted below, the inpatient pain service does not write orders. 1. Increase lyrica to 150mg AM and 450mg QHS (this is her home dose) 2. Start tizanidine 4mg q 8 hours PRN pain 3. Start a lidocaine patch % X 2 - to put on each side of the upper back. 4. Complementary care consult (ordered). 5. If pain control is poor, consider ketamine 5-10mg IV q 4 hours PRN. 6. Recommended smoking cessation - counseled the patient on the benefits of this in terms of minimizing pro-inflammatory agents and improving bone health. ASSESSMENT AND RECOMMENDATIONS DISCUSSED WITH: Lois with neurosurgery Thank you for consulting the Inpatient Pain Management Service. Please contact me with any questionsor concerns. He Reyes M.D. [facility] [phone] HISTORY OF PRESENT ILLNESS: Per Chart Review: This is a??52-year-old patient who has had multiple neck surgeries both anterior and posterior. ??The patient had complications of dysphagia as well as postoperative kyphosis. ??She does have significant pseudoarthrosis in the most caudal aspect of her construct. ??She has had a swallow study where the patient was told that the anterior cervical plate is causing her dysphagia. ??She has adjacent level degeneration and we have planned for an anterior plate removal as well as interbody cage at the infra adjacent level in addition to posterior revision from C2 down to potentially T4 for further caudal based on MRI evaluation of her infra adjacent disks. ??Once I'm able to review and assess her MRI we will plan on proceeding with surgery. ??She has had ENT vocal cord analysis as well and the patientprefers a right-sided approach given her history of multiple left-sided approaches in the setting ofnormal vocal cord movement now based on the premise that the left recurrent laryngeal nerve has beendamaged several times and is now functioning normally. ?? INPATIENT MEDICATIONS PERTINENT TO THIS CONSULT: Tylenol 1000mg TID Dilaudid 0.2-0.4mg IV q 3 hours PRN (0.8 was given at 2:33, 6:01) Dilaudid PO 2-4mg q 3 hours PRN (4mg at 0056, 0425, 0738) Lidocaine ointment 5% q 3 hours PRN Lyrica 150mg BID Senna Miralax Previous Home Pain Medications: Oxycodone 5mg 4-5 times per day. Tylenol as needed Lamictal-bipolar Latuda-bipolar lyrica-150mg morning 450mg at night Methocarbomal-causes sleep walking-rarely Valium-5mg at night Medical Cannabis Poorly tolerated Gabapentin NSAIDS (gastric bypass) Pamelor Morphine - headache Opioid prescriber: Rosetta Martin-LEDY Jerry MD-valium [employer] database review: Risk Factors: History of substance abuse: denies Family history of substance abuse: denies Psychological disease: Bipolar - stable for number of years; panic attacks once a week. PAIN HISTORY: Location: neck and shoulders- at the surgical site - rates this as a 8-9/10. Also has a migraine headache. Prior to surgery her pain was a 8/10. Duration acute surgical pain in the setting of chronic pain. Pain intensity is moderate to severe Quality of the pain is sharp, shooting, aching. Aggravating factors include stress Relieving factors include pain medications Weakness: reports subjective weakness in her left arm. Numbness: in left hand Sleeping: terrible but nurse notes that she was sleeping and groggy. Pain impact on physical therapy:not active yet. Use of incentive spirometry - has been using it. Last bowel movement: Yesterday Diet: OK Side effects from pain medications: none DIAGNOSTIC TESTS: Neck xray FINDINGS: Anterior fixation plate C6 through T1 has been removed. Interbody fusion devices at C6-C7 and C7-T1 are unchanged. The C7-T1 interbody fusion devices anteriorly positioned within the disc space. No apparent incorporation into the vertebral bodies. There is solid fusion of the disc spaces from C3 through C6. Previously noted posterior fixation hardware appears to have been removed. There aretwo separate sets of the posterior fusion hardware. The lateral fusion hardware extends from C2 through T3. The medial fixation hardware involves the lateral masses of the C3, C4, C5, and C6. No evidence for hardware complication. A surgical drain is present. CURRENT MEDICATIONS: Current Facility-Administered Medications Ordered in Epic Medication Dose Route Frequency Provider Last Rate Last Dose ??? acetaminophen (TYLENOL) tablet 1,000 mg 1,000 mg Oral TID Lois Pham PA-C 1,000 mg at 02/21/18 0739 ??? benzocaine-menthol (CEPACOL) lozenge 1 Lozenge 1 Lozenge Oral PRN per Parameters Lois Pham PA-C ??? bisacodyl (DULCOLAX) rectal suppository 10 mg 10 mg Rectal DAILY PRN Lois Pham PA-C ??? dextrose (D50) injection 12.5-25 g 12.5-25 g Intravenous PRN based on Blood Sugar Lois Pham PA-C ??? diphenhydrAMINE (BENADRYL) capsule 25-50 mg 25-50 mg Oral Q6H PRN Lois Pham PA-C ??? glucagon rDNA (diagnostic) (GLUCAGEN) injection 1 mg 1 mg Intramuscular ONCE PRN Lois Pham PA-C ??? glucose-ascorbic acid (aka [id number]) chewable tablet 4 Tab 4 Tab Oral Q15MIN PRN Lois Pham PA-C ??? HYDROmorphone (DILAUDID) injection 0.2-0.4 mg 0.2-0.4 mg Intravenous Q3H PRN Lois Pham PA-C 0.4 mg at 02/21/18 0601 ??? HYDROmorphone (DILAUDID) tablet 2-4 mg 2-4 mg Oral Q3H PRN Lois Pham PA-C 4 mg at 02/21/18 0738 ??? insulin lispro (HumALOG) injection vial 1-8 Units 1-8 Units Subcutaneous PRN based on Blood Sugar Lois Pham PA-C ??? ketamine 1 mg/mL IV syringe INFUSION 5 mg/hr Intravenous Intra-Op Dhara Tracy I, PharmD ??? lidocaine (XYLOCAINE) 5 % ointment Topical Q3H PRN Lois Pham PA-C ??? methocarbamol (ROBAXIN) tablet 500 mg 500 mg Oral Q6H PRN Lois Pham PA-C 500 mg at 02/21/18 0056 ??? naloxone (NARCAN) injection 0.2 mg 0.2 mg Intravenous PRN per Parameters Lois Pham PA-C ??? polyethylene glycol (MIRALAX) oral powder 17 g 17 g Oral Daily Lois Pham PA-C 17 g at 02/21/18 0739 ??? pregabalin (LYRICA) capsule 150 mg 150 mg Oral BID Lois Pham PA-C 150 mg at 02/21/18 0739 ??? prochlorperazine (COMPAZINE) injection 10 mg 10 mg Intravenous Q6H PRN Lois Pham PA-C ??? sennosides-docusate sodium (SENNA-S,SENNA PLUS) 8.6-50 MG per tablet 2 Tab 2 Tab Oral BID Lois Pham PA-C 2 Tab at 02/21/18 0739 ??? sodium chloride 0.9% infusion 1,000 mL Intravenous Continuous Lois Pham PA-C 100 mL/hrat 02/21/18 0426 1,000 mL at 02/21/18 0426 ??? sodium chloride 0.9% injection 3 mL 3 mL Intravenous Q8H Ankit, Lois R, PA-C ? ? sodium chloride 0.9% injection 3-5 mL 3-5 mL Intravenous PRN before&after medications or labdraw Lois Pham PA-C No current Epic-ordered outpatient prescriptions on file. LABORATORY VALUES: Last Basic Metabolic Panel: No components found for: CR ALLERGIES: Allergies Allergen Reactions ??? Adhesive Other, see comments Adhesive they use to close during surgery. And Tagaderm ??? Amoxicillin Rash ??? Benzoin Other, see comments ??? Cefaclor Rash ??? Chlorhexidine Other, see comments ??? Gabapentin Other, see comments Dropped things Feels weird ??? Morphine Headache and Rash ??? Nortriptyline Palpitations And heart racing ??? Nsaids Other, see comments Gastric bypass ??? Soy Allergy Unknown ??? Sulfamethoxazole-Trimethoprim Gastrointestinal GI upset ??? Acyclovir Rash ??? Cephalosporins Rash ??? Other Rash PAST MEDICAL AND PSYCHIATRIC HISTORY: Past Medical History: Diagnosis Date ??? Acne ??? Allergy ??? Anxiety disorder (HRC) ??? Arthritis ??? Asthma (HRC) ??? Bipolar 1 disorder (HRC) ??? COPD (chronic obstructive pulmonary disease) (HRC) ??? Depression (HRC) ??? Ear infection ??? Infection of the inner ear, left ? ? Nausea & vomiting ??? Sinusitis PAST SURGICAL HISTORY: has no past surgical history on file. FAMILY HISTORY: family history includes Cancer, Other in her maternal grandmother and paternal grandmother; Neurofibromatosis in her sister; Stroke in her maternal grandfather; Thyroid Disorder in her mother. HEALTH & LIFESTYLE PRACTICES: Tobacco: reports that she has been smoking Cigarettes. She has a 15.00 pack-year smoking history. She has never used smokeless tobacco. Alcohol: reports that she does not drink alcohol. Illicit drugs: has no drug history on file. REVIEW OF 10 BODY SYSTEMS: 10 point ROS of systems was obtained, pertinent positives noted in my HPIor here, otherwise they are negative Gen: Fevers - denies ENT: Headaches - reports Cardiac: Chest pain - denies Resp: Shortness of breath or sleep apnea - denies GI: constipation - denies Nausea - reports Vomiting - denies Heme: Hx of cancer denies Musc: see HPI Neuro: see HPI Endocrine: Diabetes - denies Psych: Depression - denies Anxiety - reports ID: denies recent infections - denies skin: denies pruritis - reports PHYSICAL EXAMINATION: VITAL SIGNS: Blood pressure 114/64, pulse 61, temperature 98 ??F (36.7 ??C), temperature source Oral, resp. rate 18, height 5' (1.524 m), weight 70.8 kg (156 lb), SpO2 98 %. GEN There are not signs of sedation or somnolence, in mild visible distress secondary to pain HEAD: NCAT EYES: PERRLA, there is not scleral icterus Neck: Neck is in a soft collar. CV: RRR, no m/g/r Resp: CTAB, respirations even Abd: soft NT/ND +BS Musc: no joint effusions Neuro: She is AAO to person, place, and date. No facial asymmetry Skin: multiple tattoos, no visible rashes or bruises on my exam. Extremities: No cyanosis, clubbing, or edema Psyhological exam: Mood anxious, irritable Affect full Speech non-pressured. Insight - appropriate. TIME SPENT: 70 minutes including 50% time [id number] time counseling her about her diagnosis and treatment options, and coordinating care with the primary team. DECISION-MAKING: The level of decision-making in this case is high/complex due to the complexity of medical problems, acute/chronic pain, opioid analgesia issues, and behavioral factors. documented in this encounter Miscellaneous Notes OR Nursing - Monica Pate RN - 02/20/2018 2:[address] [facility] Progress Note Patient Name: Angie Bender Date of : 1965 8 screws, 6 caps, and 1 plate removed from cervical spine and sent to reprocessing to be returned topatient. Monica Pate RN 02/20/2018 at 2:49 PM documented in this encounter Plan of Treatment Scheduled Referrals Name Type Priority Associated Diagnoses Order S chedule Referrals already Referral Routine Once today starting now addressed / No for 1 Occurre nces additional referrals startin g 02/21/2018 needed until 8 documented as of this encounter Procedures Procedure Name Priority Date/Time Associated Comments Diagnosis COMPLETE BLOOD COUNT-NO Routine 02/22/2018 12:36 Results for this DIFF PM CDT procedure are i n the results section. XR CERVICAL SPINE Routine 02/21/2018 9:50 Results for this AP/LAT UPRIGHT AM CDT procedure are in the results section. GLUCOSE, WHOLE BLOOD Routine 02/21/2018 7:41 Resu lts for this POCT AM CDT procedure are i n the results section. BASIC METABOLIC PANEL Routine 02/21/2018 7:12 Res ults for this AM CDT procedure are i n the results section. COMPLETE BLOOD COUNT-NO Routine 02/21/2018 7:12 R esults for this DIFF AM CDT procedure are i n the results section. GLUCOSE, WHOLE BLOOD Routine 02/20/2018 11:20 Res ults for this POCT PM CDT procedure are i n the results section. GLUCOSE, WHOLE BLOOD Routine 02/20/2018 5:05 Resu lts for this POCT PM CDT procedure are i n the results section. GLUCOSE, WHOLE BLOOD Routine 02/20/2018 3:45 Resu lts for this POCT PM CDT procedure are i n the results section. XR C-ARM 0-30 MINUTES Routine 02/20/2018 2:05 Res ults for this PM CDT procedure are i n the results section. XR C-ARM 2.5-3 HOURS Routine 02/20/2018 12:45 Res ults for this PM CDT procedure are i n the results section. XR C-ARM 30-59 MINUTES Routine 02/20/2018 12:36 R esults for this PM CDT procedure are i n the results section. GLUCOSE, WHOLE BLOOD Routine 02/20/2018 9:02 Resu lts for this POCT AM CDT procedure are i n the results section. 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 ABO/RH(D) RETYPE Routine 02/20/2018 6:22 Results for this AM CDT procedure are i n the results section. BASIC METABOLIC PANEL Routine 02/20/2018 6:08 Res ults for this AM CDT procedure are i n the results section. APTT (ACTIVATED PARTIAL Routine 02/20/2018 6:08 R esults for this THROMBOPLASTIN TIME AM CDT procedur e are in the results section. COMPLETE BLOOD COUNT-NO Routine 02/20/2018 6:08 R esults for this DIFF AM CDT procedure are i n the results section. INR/PROTIME Routine 02/20/2018 6:08 Results for this AM CDT procedure are i n the results section. ABO RH & ANTIBODY Routine 02/20/2018 6:07 Results for this SCREEN (TYPE & SCREEN) AM CDT proce dure are in the results section. EKG IP 02/20/2018 12:00 Results for this AM CDT procedure are i n the results section. documented in this encounter Results XR Cervical Spine AP/Lat Upright (04/05/2018 12:46 PM CDT) Anatomical Region Laterality Modality Spine, C-Spine, Neck Computed Radiograph y Specimen (Source) Anatomical Collection Method Collection Time Re ceived Time Location / / Volume Laterality 04/05/2018 12:46 PM CDT Narrative 04/05/2018 5:22 PM CDT XR CERVICAL SPINE AP/LAT UPRIGHT 04/05/2018 12:46 PM INDICATION: Spinal stability assessment COMPARISON: Cervical spine plain films 0 02/21/2018 FINDINGS: C2-T3, skip C7, posterior inst rumented fusion. Solid C3-C6 interbody fusion. Maturing C6-C7 and C7-T1 interbody fusions. No instrumentation loosening or failure. Anatomic alignment. Shoulder prosthesis. Procedure Note Tamir Ching MD - 04/05/2018Formattin g of this note might be different from the original. XR CERVICAL SPINE AP/LAT UPRIGHT 04/05/2018 12:46 PM INDICATION: Spinal stability assessment COMPARISON: Cervical spine plain films 0 02/21/2018 FINDINGS: C2-T3, skip C7, posterior inst rumented fusion. Solid C3-C6 interbody fusion. Maturing C6-C7 and C7-T1 interbody fusions. No instrumentation loosening or failure. Anatomic alignment. Shoulder prosthesis. Sirisha Maher FREELANCE [employer] REPORTER, [employer] ANALYST RAD GD (ABNORMAL) Complete Blood Count-No Diff (02/22/2018 12:36 PM CDT) P athologist Signature WBC 10.2 4.0 - 11.0 [facility] k/ul HOSPITAL RBC 3.36 (L) 4.0 - 5.2 [facility] M/ul [facility] Hemoglobin 11.1 (L) 12.0 - 16.0 [facility] g/dl HOSPITAL HCT 33.2 (L) 36.0 - 46.0 [facility] MCV 98.8 80 - [address] [facility] MCH 33.0 26 - [address] [facility] MCHC 33.4 32 - 36 [facility] g/dl HOSPITAL RDW 14.4 11.5 - 14.5 [facility] Platelets 183 150 - 450 [facility] k/[facility] MPV 10.6 9.4 - 12.4 [facility] Specimen Anatomical Collection Method Collection Time Receive d Time (Source) Location / / Volume Laterality 02/22/2018 12:36 02/22/2018 PM CDT 12:[address] [facility] - 02/22/2018 12:46 PM C DT Performed at [facility] , [address] [place] [address] Lois Pham PA-C LAB_1 Performing Organization Address City/State/ZIP Code Phon e Number [id number] [place] [address] [phone] XR Cervical Spine AP/Lat Upright (02/21/2018 9:50 AM CDT) Anatomical Region Laterality Modality Spine, C-Spine, Neck Computed Radiograph y Specimen (Source) Anatomical Collection Method Collection Time Re ceived Time Location / / Volume Laterality 02/21/2018 9:50 AM CDT Narrative 02/21/2018 11:12 AM CDT XR CERVICAL SPINE AP/LAT UPRIGHT 02/21/2018 9:50 AM INDICATION: Spinal fusion. Evaluate stab ility. COMPARISON: 11/29/2017. FINDINGS: Anterior fixation plate C6 thr ough T1 has been removed. Interbody fusion devices at C6-C7 and C7-T1 are unchanged. The C7-T1 interbody fusion devices anteriorly positioned within the disc spac e. No apparent incorporation into the ve rtebral bodies. There is solid fusion of the disc spaces from C3 through C6. Previously noted posterior fixation hardware appears to have been removed. There are two separate sets of the posterior fusio n hardware. The lateral fusion hardware extends from C2 through T3. The medial fixation hardware involves the lateral masses of the C3, C4, C5, and C6. No evidenc e for hardware complication. A surgical drain is present. Procedure Note Peter Quesada MD - 02/21/2018Forma tting of this note might be different from the original. XR CERVICAL SPINE AP/LAT UPRIGHT 02/21/2018 9:50 AM INDICATION: Spinal fusion. Evaluate stab ility. COMPARISON: 11/29/2017. FINDINGS: Anterior fixation plate C6 thr ough T1 has been removed. Interbody fusion devices at C6-C7 and C7-T1 are unchanged. The C7-T1 interbody fusion devices anteriorly positioned within the disc space. No apparent incorporation into the vertebra l bodies. There is solid fusion of the disc spaces from C3 through C6. Previously noted posterior fixation hardware appears to have been removed. There are two separate sets of the posterior fusion hardware. The lateral f usion hardware extends from C2 through T3. The medial fixation hardware involves the lateral masses of the C3, C4, C5, and C6. No evidence for hardware complication. A surgical drain is present. Lois JOSEPH GD Glucose, Whole Blood POC (02/21/2018 7:41 AM CDT) athologist Signature Glucose, Whole 109 70 - 180 [facility] Blood mg/dl [facility] Comment: Point of Care Testing RN Notified Specimen Anatomical Collection Method Collection Time Receive d Time (Source) Location / / Volume Laterality 02/21/2018 7:41 AM 8 7:57 CDT AM CDT Marky Gonzalez MD LAB_1 Performing Organization Address City/State/ZIP Code Phon e Number [address] [address], [facility] ([facility]) Basic Metabolic Panel (02/21/2018 7:12 AM CDT) athologist Signature Sodium 138 136 - 145 [facility] mmol/L [facility] Potassium 3.9 3.5 - 5.1 [facility] mmol/L [facility] Chloride 111 (H) 98 - 109 [facility] mmol/L [facility] CO2 20 20 - 29 [facility] mmol/L [facility] Anion Gap 7 7 - 16 [facility] (calc.) mmol/L [facility] Glucose 117 70 - 180 [facility] mg/dl [facility]OSPITAL Calcium 8.3 (L) 8.4 - 10.2 [facility] mg/dl [facility]OSPITAL BUN 14 7 - 26 [facility] mg/dl [facility] Creatinine 0.63 0.55 - [facility] 1.02 mg/dl HOSPITAL GFR, Estimated >60 >60 [facility] ml/min/1.7 [facility] 3m2 GFR, Est., If >60 >60 [facility] Black ml/min/1.7 [facility] 3m2 Specimen Anatomical Collection Method Collection Time Receive d Time (Source) Location / / Volume Laterality 02/21/2018 7:12 AM 8 7:[address] [facility] - 02/21/2018 7:47 AM CD T Performed at [facility] , [address] [place] [id number] Lois Pham PA-C LAB_1 Performing Organization Address City/State/ZIP [place] [address] [address], [facility] ([facility] Hemogram with Plts (02/21/2018 7:12 AM CDT) athologist Signature WBC 10.0 4.0 - 11.0 [facility] RBC 3.29 (L) 4.0 - 5.2 [facility] Hemoglobin 10.7 (L) 12.0 - 16.0 [facility] g/dl [facility] HCT 32.2 (L) 36.0 - 46.0 [facility] MCV 97.9 80 - 100 [facility] MCH 32.5 26 - [address] [facility] MCHC 33.2 32 - 36 [facility] g/dl [facility] RDW 13.9 11.5 - 14.5 [facility] Platelets 186 150 - 450 [facility] MPV 10.3 9.4 - 12.4 [facility] Specimen Anatomical Collection Method Collection Time Receive d Time (Source) Location / / Volume Laterality 02/21/2018 7:12 AM 8 7:[address] [facility] - 02/21/2018 7:26 AM CD T Performed at [facility] , [address] [place] [id number] Lois Pham PA-C LAB_1 Performing Organization Address City/[facility]/ZIP Code Phon e Number [address] [address], [facility] Glucose, Whole Blood POC (02/20/2018 11:20 PM CDT) P athologist Signature Glucose, Whole 140 70 - 180 [facility] Blood mg/dl [facility]OS[facility] Comment: Point of Care Testing No Action Required Specimen Anatomical Collection Method Collection Time Receive d Time (Source) Location / / Volume Laterality 02/20/2018 11:20 02/20/2018 PM CDT 11:26 PM CDT Marky Gonzalez MD LAB_1 Performing Organization Address [facility] Phon e Number [address] [address], [place] Glucose, Whole Blood POC (02/20/2018 5:05 PM CDT) P athologist Signature Glucose, Whole 145 70 - 180 [facility] Blood mg/dl [facility]OS[facility]ITAL Comment: Point of Care Testing No Action Required Specimen Anatomical Collection Method Collection Time Receive d Time (Source) Location / / Volume Laterality 02/20/2018 5:05 PM 8 5:25 CDT PM CDT Marky Gonzalez MD LAB_1 Performing Organization Address City/[facility]/ZIP [facility] [place] Phon e Number [address] [address], [place] [phone] Glucose, Whole Blood POC (02/20/2018 3:45 PM CDT) P athologist Signature Glucose, Whole 145 70 - 180 [facility] Blood mg/dl [facility]OSPITAL Comment: Point of Care Testing No Action Required Specimen Anatomical Collection Method Collection Time Receive d Time (Source) Location / / Volume Laterality 02/20/2018 3:45 PM 8 3:52 CDT PM CDT Marky Gonzalez MD LAB_1 Performing Organization Address City/State/ZIP Code Phon e Number [address] [address], [place] [phone] XR C-Arm 0-30 Minutes (02/20/2018 2:05 PM CDT) Anatomical Region Laterality Modality Other Specimen (Source) Anatomical Location Collection Method / Collectio n Time Received Time / Laterality Volume Narrative 02/20/2018 2:06 PM CDT Fluoroscopy provided by a rn radiology. Exact fluoroscopy time is documented in end of exam information in EPIC Marky Gonzalez MD RAD GD XR C-Arm 2.5-3 Hours (02/20/2018 12:45 PM CDT) Anatomical Region Laterality Modality Other Specimen (Source) Anatomical Location Collection Method / Collectio n Time Received Time / Laterality Volume Narrative 02/20/2018 12:45 PM CDT Fluoroscopy provided by a rn radiology. Exact fluoroscopy time is documented in end of exam information in EPIC Marky Gonzalez MD RAD GD XR C-Arm 30-59 Minutes (02/20/2018 12:36 PM CDT) Anatomical Region Laterality Modality Other Specimen (Source) Anatomical Location Collection Method / Collectio n Time Received Time / Laterality Volume Narrative 02/20/2018 12:36 PM CDT Fluoroscopy provided by a rn radiology. Exact fluoroscopy time is documented in end of exam information in EPIC Marky Gonzalez MD RAD GD Glucose, Whole Blood POC (02/20/2018 9:02 AM CDT) athologist Signature Glucose, Whole 135 70 - 180 [facility] Blood mg/dl [facility] Comment: Point of Care Testing RN Notified Specimen Anatomical Collection Method Collection Time Receive d Time (Source) Location / / Volume Laterality 02/20/2018 9:02 AM 8 9:08 CDT AM CDT Marky Gonzalez MD LAB_1 Performing Organization Address City/State/ZIP Code Phon e Number [address] [address], [place] Glucose, Whole Blood POC (02/20/2018 6:25 AM CDT) athologist Signature Glucose, Whole 90 70 - 180 [facility] Blood mg/dl [facility] Specimen Anatomical Collection Method Collection Time Receive d Time (Source) Location / / Volume Laterality 02/20/2018 6:25 AM 8 6:34 CDT AM CDT Marky Gonzalez MD LAB_1 Performing Organization Address City/[facility]/ZIP [facility] [place] Phon e Number [address] [address], [facility] ABO/RH(D) Retype (02/20/2018 6:22 AM CDT) athologist Signature ABO/RH(D) A NEGATIVE [facility] Specimen Anatomical Collection Method Collection Time Receive d Time (Source) Location / / Volume Laterality 02/20/2018 6:22 AM 8 6:[address] [facility] - 02/20/2018 7:06 AM CD T Performed at [facility] , [address] [place] [address] Marky Gonzalez MD LAB_1 Performing Organization Address [facility] Phon e Number [address] [address], [facility] IN[facility]/Protime (PT/INR) (02/20/2018 6:08 AM CDT) athologist Signature Protime 13.0 12.0 - 14.5 [facility] INR 1.0 0.9 - 1.1 [facility] Specimen Anatomical Collection Method Collection Time Receive d Time (Source) Location / / Volume Laterality 02/20/2018 6:08 AM 8 6:22 CDT [address] [facility] - 02/20/2018 6:40 AM CD T Performed at [facility] , [address] [place] [address] Sirisha Maher APRN, [employer]ET[employer] ANALYST LAB_1 Performing Organization Address [facility]/ZIP [facility] [place] Phon e Number [address] [address], [facility] Hem[facility] with Platelets (02/20/2018 6:08 AM CDT) athologist Signature WBC 6.7 4.0 - 11.0 [facility] k/ul [facility] RBC 4.13 4.0 - 5.2 [facility] M/ul [facility] Hemoglobin 13.5 12.0 - 16.0 [facility] g/dl [facility] HCT 39.8 36.0 - 46.0 [facility] MCV 96.4 80 - [address] [facility] MCH 32.7 26 - [address] [facility] MCHC 33.9 32 - 36 [facility] g/dl HOSPITAL RDW 13.8 11.5 - 14.5 [facility] Platelets 245 150 - 450 [facility] k/[facility] MPV 10.6 9.4 - 12.4 [facility] Specimen Anatomical Collection Method Collection Time Receive d Time (Source) Location / / Volume Laterality 02/20/2018 6:08 AM 8 6:22 [address] [facility] - 02/20/2018 6:32 AM CD T Performed at [facility] , [address] [place] [address] Sirisha Maher APRN, [employer]ET[employer] ANALYST LAB_1 Performing Organization Address [facility]/State/ZIP Code [place] [address] (ABNORMAL) Basic Metabolic Panel (02/20/2018 6:08 AM CDT) athologist Signature Sodium 139 136 - 145 [facility] mmol/L [facility] Potassium 4.4 3.5 - 5.1 [facility] mmol/L [facility] Comment: Specimen Slightly Hemolyzed Hemolysis May Affect Result Chloride 109 98 - 109 mmol/L [facility] AL CO2 18 (L) 20 - 29 mmol/L [facility] L Anion Gap (calc.) 12 7 - 16 mmol/L [facility] Glucose 96 70 - 180 mg/dl [facility] L Calcium 9.4 8.4 - 10.2 mg/dl [facility] EHSAN BUN 14 7 - 26 mg/dl [facility] Creatinine 0.69 0.55 - 1.02 mg/dl [facility] HOS PITAL GFR, Estimated >60 >60 ml/min/1.73m2 [facility] GFR, Est., If Black >60 >60 ml/min/1.73m2 [facility] Specimen Anatomical Collection Method Collection Time Receive d Time (Source) Location / / Volume Laterality 02/20/2018 6:08 AM 8 6:[address] [facility] - 02/20/2018 6:52 AM CD T Performed at [facility] , [address] [place] [address] Sirisha Maher APRN [employer]ET[employer] ANALYST LAB_1 Performing Organization Address City/[facility] Phon e Number [address] [address], [facility] aPTT (Activated Partial Thromboplastin Time) (02/20/2018 6:08 AM CDT) P athologist Signature PTT 26.8 24.0 - 37.0 [facility] Specimen Anatomical Collection Method Collection Time Receive d Time (Source) Location / / Volume Laterality 02/20/2018 6:08 AM 8 6:[address] [facility] - 02/20/2018 6:40 AM CD T Performed at [facility] , [address] [place] [address] Sirisha Maher APRN, [employer]ET[employer] ANALYST LAB_1 Performing Organization Address City/[facility] Phon e Number [address] [address], [facility] [phone] ABO Rh & Antibody Screen (Type & Screen) (02/20/2018 6:07 AM CDT) Patholo gist Method Time Signature Crossmatch 02/23/2018 [facility] Expires [facility] ABO/RH(D) A NEGATIVE [facility] Antibody NEGATIVE [facility] Specimen Anatomical Collection Method Collection Time Receive d Time (Source) Location / / Volume Laterality 02/20/2018 6:07 AM 8 6:22 CDT AM CDT [facility] - 02/20/2018 7:10 AM CD T Performed at [facility] , [address] [place] [address] Sirisha Maher APRN, CNP LAB_1 Performing Organization Address City/State/ZIP Code Phon e Number [address] [address], [facility] EKG IP (02/20/2018 12:00 AM CDT) Specimen (Source) Anatomical Location Collection Method / Collectio n Time Received Time / Laterality Volume 02/20/2018 Narrative This result has an attachment that is no t available. 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 Plan of Care Note Assessment: Incisions C/D/I Plan: Discharge to home Subjective: Reports itching from adhesive tape. No redness noted. Objective: UAL with steady gait. Incisions look good. Dilaudid every 3 hours for pain control. I completed a full assessment and assessments as ordered and per policy on this patient during my work shift. Reassessments completed during my work shift are unchanged unless documented. --- End of Report --- Plan of Care - Heather Carbajal RN - 02/23/2018 7:[address] [facility] Plan of Care Note Assessment: pain Plan: pt will have adequate pain control Subjective: rates pain 5/10 at rest and 8/10 with movement Objective: Pain well controlled with Valium at HS, PRN Dilaudid Q3 and Tizanidine, neuro's unchanged, wearing soft collar for comfort, ambulating independently in room. I completed a full assessment and assessments as ordered and per policy on this patient during my work shift. Reassessments completed during my work shift are unchanged unless documented. --- End of Report --- Plan of Care - Shawn Rico RN - 02/22/2018 10:[address] [facility] Plan of Care Note Assessment: comfort level Plan: Will have adequate pain control Subjective: Pt. Stated I have neck incisional pain. Objective: Pt's vss, alert,orientedx4 and afebrile. Cms intact in all extremities, speech clear and PERRLA. Pt.has soft collar in place, c/o intermittent posterior neck discomfort,medicated with dilaudid, tizanidine, valium and tylenol. Pt.verbalized tolerable discomfort level. Pt. out of bed, up ambulating in the nursing luevano-way and tolerating it well. --- End of Report --- Plan of Care - Shawn Rico RN - 02/22/2018 4:[address] [facility]. MD Notified Note Name of MD notified: Ankit Time of MD notification: 1600 hours and 1 minute Reason: Pt.asking for valium now and current order for [place]. [place]. [id number]. Response: Valium one time dose now and HS prn. Shawn Butcher RN --- End of Report --- Plan of Care - Alec Gifford RN - 02/22/2018 1:[address] [facility] Plan of Care Note Assessment: pain Plan: monitor and medicate as needed for pain Subjective: I want to go home Objective: pain controlled on oral medications Q 3hours, denies feeling SOB or any chest pain, up inwheelchair going outside and ambulating in room with walker, wants to go home, but due to high drainoutput will stay tonight, pt became anxious and wants valium and hormone patch, Meka CISNEROS, notified and orders placed. I completed a full assessment and assessments as ordered and per policy on this patient during my work shift. Reassessments completed during my work shift are unchanged unless documented. --- End of Report --- Plan of Care - Anita Lundberg RN - 02/22/2018 2:[address] [facility] Plan of Care Note Assessment: Pain Plan: Assess and intervene as needed Subjective: Pt rates posterior neck pain & left shoulder pain 6-8/10 Objective: A/Ox4, SBA w/ walker. PRN PO Dilaudid administered x2, PRN IV Dilaudid administered x3, and Zanaflex administered x1. Ice applied, ambulation, and positioning utilized for pain control. Pt appeared to be resting comfortably between cares. I completed a full assessment and assessments as ordered and per policy on this patient during my work shift. Reassessments completed during my work shift are unchanged unless documented. --- End of Report --- Plan of Care - Judith Orellana RN - 02/22/2018 12:[address] [facility] Plan of Care Note Assessment: Pain Plan: Monitor and control pain Subjective: My pain has never been this good Objective: Pt c/o anterior/posterior neck pain rated 4-9/10. PRN Dilaudid PO x2, IV Dilaudid x1, Zanaflex x1 given this shift, with relief.I completed a full assessment and assessments as ordered and per policy on this patient during my work shift. Reassessments completed during my work shift are unchanged unless documented. --- End of Report --- Plan of Care - Alec Gifford RN - 02/21/2018 1:[address] [facility] Plan of Care Note Assessment: pain control Plan: monitor and medicate as needed for pain. Subjective: my neck and left side hurts. Objective: pt appears drowsy but oriented x 4, following commands, up in chair and went outside withfamily. Medicating with PO/IV dilaudid and PRN muscle relaxer. C/o nausea medicated 1x, but tolerating diet, no trouble swallowing, unable to void, SC 1x. I completed a full assessment and assessments as ordered and per policy on this patient during my work shift. Reassessments completed during my work shift are unchanged unless documented. --- End of Report --- Plan of Care - Anita Lundberg RN - 02/21/2018 4:[address] [facility]. MD Notified Note Name of MD notified: Neurosurg Time of MD notification: 0400 hours and 55 minutes Reason: [id number]- Pt reporting oral/IV pain meds ineffective. Pt upset, req further intervention. Please advise. Thanks. Response: Discussed w/ neurosurg. To be addressed in AM and PRNs to continue to be administered as able. Anita Lundberg RN --- End of Report --- Plan of Care - Anita Lundberg RN - 02/21/2018 2:[address] [facility] Plan of Care Note Assessment: Pain Plan: Assess and intervene as needed Subjective: I'm just so stiff Objective: A/Ox4, pt noted to be lethargic/sleepy most of shift, but is arousable to voice. Pt c/o pain 7-9/10 to posterior neck and left shoulder, and PRN PO Dilaudid administered x2 and IV Dilaudid administered x2. PRN Robaxin administered x1, ice applied, pillow positioning utilized for comfort. Appeared to rest comfortably between cares. I completed a full assessment and assessments as ordered and per policy on this patient during my work shift. Reassessments completed during my work shift are unchanged unless documented. --- End of Report --- Plan of Care - Manoj Singh, RADHA - 02/20/2018 11:57 PM CDT Problem: Pain, Acute (Adult) Intervention: Monitor/Manage Analgesia 02/20/182123 Manage Acute Burn Pain Pain Management Interventions pain plan reviewed with patient/caregiver;pillow support provided Intervention: Mutually Develop/Implement Acute Pain Management Plan 02/20/182123 Manage Acute Burn Pain Pain Management Interventions pain plan reviewed with patient/caregiver;pillow support provided Goal: Identify Related Risk Factors and Signs and Symptoms Outcome: Progressing 02/20/186 Pain, Acute Related Risk Factors (Acute Pain) surgery;procedure/treatment;persistent pain;disease process Signs and Symptoms (Acute Pain) alteration in muscle tone;sleep pattern alteration;verbalization of pain descriptors;questions meaning of pain;pacing/restlessness Goal: Acceptable Pain Control/Comfort Level 02/20/18 2356 Pain, Acute (Adult) Acceptable Pain Control/Comfort Level unable to achieve outcome Comments: [facility] Plan of Care Note Assessment: posterior neck pain worst than anterior Plan: IHR, assessment, pain control Subjective: I thought that I was going to be on a dilaudid drip Objective: Pt angry that she was not on a [employer] pump, Dilaudid PO and IV given q3h, pt still reporting9-10/10 pain, although she falls asleep mid sentence and between cares. Arousable to voice, and oriented x3 throughout. Up to bathroom commode with assist of 2, pt had large BM. Using call light appropriately. Soft collar ordered and in room. Ice bag to post neck for more pain relief, pt declined robaxin. Tolerated clears, diet advanced. I completed a full assessment and assessments as ordered and per policy on this patient during my work shift. Reassessments completed during my work shift are unchanged unless documented. --- End of Report --- documented in this encounter Administered Medications Inactive Administered Medications - up to 3 most recent administrations Medication Order MAR Action Action Date Dose Rate Site acetaminophen (TYLENOL) tablet Given 02/23/2018 8:21 AM CDT 1,00 0 mg 1,000 mg 1,000 mg, Oral, TID, First dose on Tue02/20/18 at 2000, Until Discontinued, PACU & Post-op Given 02/22/2018 7:40 PM CDT 1,000 mg Given 02/22/2018 2:05 PM CDT 1,000 mg cyanocobalamin (VITAMIN B12) tablet 500 mcg Given 02/23/2018 8:18 AM CDT 500 mcg 500 mcg, Oral, DAILY, First dose on Tue02/21/18 at 0945, Until Discontinued Given 02/22/2018 7:42 AM CDT 500 mcg Given 02/21/2018 10:14 AM CDT 500 mcg diazePAM (VALIUM) tablet 2.5-5 mg Given 02/22/2018 5:13 PM CDT 5 mg 2.5-5 mg, Oral, ONCE PRN, Anxiety, Starting on Tue02/22/18 at 1601, Until Tue02/22/18 at 1713, For 1 dose diazePAM (VALIUM) tablet 5 mg Given 02/22/2018 11:20 PM CDT 5 mg 5 mg, Oral, HS PRN, Anxiety, Starting on Tue02/22/18 at 1533, Until Tue02/23/18 at 1350 estradiol (VIVELLEDOT) 0.05 MG/24HR Patch Applied 02/23/2018 8 :21 AM CDT 1 Patch biweekly patch 1 Patch 1 Patch, Transdermal, TWICE WEEKLY (Once per day on Tue), First dose on Tue02/22/18 at 1600, Until Discontinued, Hazardous waste disposal required. Patch Applied 02/22/2018 5:13 PM CDT 1 Patch fentaNYL (SUBLIMAZE) injection 25-50 mcg Given 02/20/2018 4:10 PM CDT 50 mcg 25-50 mcg, Intravenous, [id number], Pain, Starting on Tue02/20/18 at 1451, Until Tue02/20/18 at 1650, 25 mcg IV q5min prn based on the patient's pain scale rating for mild to moderate pain (1 to 5). 50 mcg IV q5min prn based on the patient's pain scale rating for moderate to severe pain (6 to 10). Total PACU fentanyl dose not to exceed 200 mcg. Use fentanyl initially for a short acting agent for treatment of acute post operative pain. May use in conjuction with a longer acting agent for optimal pain control. Respiratory rate must be greater than 10 to administer medications., PACU (only) fluticasone-salmeterol (ADVAIR) 250-50 Given 02/23/2018 8:22 AM CDT 1 Puff MCG/DOSE diskus inhaler 1 Puff 1 Puff, Inhalation, BID, First dose on Tue02/21/18 at 0945, Until Discontinued Given 02/22/2018 7:44 PM CDT 1 Puff Given 02/22/2018 7:44 AM CDT 1 Puff folic acid tablet 0.8 mg Given 02/23/2018 8:20 AM CDT 0.8 mg 0.8 mg, Oral, DAILY, First dose on Tue02/21/18 at 0945, Until Discontinued Given 02/22/2018 7:43 AM CDT 0.8 mg Given 02/21/2018 10:15 AM CDT 0.8 mg furosemide (LASIX) tablet 20 mg Given 02/23/2018 8:20 AM CDT 20 mg 20 mg, Oral, DAILY, First dose on Tue02/21/18 at 0945, Until Discontinued Given 02/22/2018 7:43 AM CDT 20 mg Given 02/21/2018 10:15 AM CDT 20 mg HYDROmorphone (DILAUDID) injection 0.2-0.4 Given 02/22/2018 10:28 AM CDT 0.4 mg mg 0.2-0.4 mg, Intravenous, Q3H PRN, Pain, Use if unable to take PO, Starting on Tue02/20/18 at 1635, Until Tue02/22/18 at 1210, For 48 hours, Give IV opioid for breakthrough pain, if unable to give PO or per patient preference., PACU & Post-op Given 02/22/2018 7:04 AM CDT 0.4 mg Given 02/22/2018 3:55 AM CDT 0.4 mg HYDROmorphone (DILAUDID) tablet 2-4 mg Given 02/23/2018 9:39 AM CDT 2 mg 2-4 mg, Oral, Q3H PRN, Pain, Starting on Tue02/20/18 at 1635, PACU & Post-op Given 02/23/2018 6:43 AM CDT 4 mg Given 02/23/2018 3:25 AM CDT 4 mg HYDROmorphone injectable 0.2-0.3 mg Given 02/20/2018 4:10 PM CDT 0.3 mg 0.2-0.3 mg, Intravenous, Q10MIN PRN, Pain, Starting on Tue02/20/18 at 1451, Until Tue02/20/18 at 1650, PACU USE ONLY 0.2 mg IV q10min prn based on the patients pain scale rating for mild to moderate pain (1-5) 0.3 mg IV q10min prn based on the patients pain scale rating for moderate to severe pain (6 to 10) Total PACU hydromorphone dose not to exceed 2 mg per hour, PACU (only) ketamine 1 mg/mL IV syringe INFUSION 5 mg/hr (5 mL/hr), Intravenous, INTRA-OP , Starting on Tue02/20/18 at 1322, For 1 dose, Continous infusion lactated ringers infusion Started 02/20/2018 2:38 PM CDT 30 mL/hr, Intravenous, CONTINUOUS, Starting on Tue02/20/18 at 0600, Pre-op Restarted 02/20/2018 12:18 PM CDT Started 02/20/2018 11:54 AM CDT lamoTRIgine (LaMICtal) tablet 200 mg Given 02/23/2018 8:19 AM CDT 200 mg 200 mg, Oral, BID, First dose on Tue02/21/18 at 0945, Until Discontinued Given 02/22/2018 7:42 PM CDT 200 mg Given 02/22/2018 7:43 AM CDT 200 mg lansoprazole (PREVACID) capsule 30 mg Given 02/23/2018 5:10 AM CDT 30 mg 30 mg, Oral, DAILY AT 0600, First dose on Tue02/21/18 at 0945, Until Discontinued Given 02/22/2018 5:40 AM CDT 30 mg Given 02/21/2018 10:16 AM CDT 30 mg lidocaine (LIDODERM) 5 % patch 2 Patch Applied 02/23/2018 8:18 AM C DT 2 Patches Patch 2 Patch, Transdermal, DAILY, First dose (after last modification) on Tue02/22/18 at 0800, Until Discontinued, Apply patch to joyce-incisional. Patch may remain in place for up to 12 hours in any 24 hour period, i.e. patches placed at 0800 should be removed at 2000. May cut patch to appropriate size. Patch Applied 02/22/2018 10:32 AM CDT 2 Patches loratadine (CLARITIN) tablet 5 mg Given 02/23/2018 8:20 AM CDT 5 mg 5 mg, Oral, DAILY, First dose on Tue02/21/18 at 0945, Until Discontinued Given 02/22/2018 7:44 AM CDT 5 mg Given 02/21/2018 10:16 AM CDT 5 mg lurasidone (LATUDA) tablet 80 mg Given 02/23/2018 8:20 AM CDT 80 mg 80 mg, Oral, DAILY, First dose on Tue02/21/18 at 0945, Until Discontinued, Administer with food. Meal or snack must contain at least 350 calories. Given 02/22/2018 7:43 AM CDT 80 mg Given 02/21/2018 10:16 AM CDT 80 mg methocarbamol (ROBAXIN) tablet 500 mg Given 02/21/2018 10:34 AM CDT 500 mg 500 mg, Oral, Q6H PRN, Muscle Spasms, Starting on Tue02/20/18 at 1635, Until Tue02/21/18 at 1154, PACU & Post-op Given 02/21/2018 12:56 AM CDT 500 mg ondansetron (ZOFRAN-ODT) disintegrating tablet Given 0 02/22/2018 7:08 AM CDT 4 mg 4 mg 4 mg, Oral, Q8H PRN, Nausea, Vomiting, Starting on Tue02/21/18 at 0917, Until Clementine 02/23/18 at 1350, Do not swallow tablet whole. Allow to dissolve on the tongue without chewing. Given 02/21/2018 1:03 PM CDT 4 mg polyethylene glycol (MIRALAX) oral powde r 17 g Given 02/23/2018 8:18 AM CDT 17 g 17 g, Oral, DAILY, First dose on Tue02/21/18 at 0800, Until Discontinued, Give daily while on narcotics. Do not give if ileus present., PACU & Post-op Given 02/22/2018 7:42 AM CDT 17 g Given 02/21/2018 7:39 AM CDT 17 g potassium chloride (K-DUR,KLOR-CONM) extended Given 8:19 AM CDT 20 mEq release tablet 20 mEq 20 mEq, Oral, BID, First dose on Tue02/21/18 at 0945 Given 02/22/2018 7:40 PM CDT 20 mEq Given 02/22/2018 7:44 AM CDT 20 mEq pregabalin (LYRICA) capsule 150 mg Given 02/21/2018 7:39 AM CDT 150 mg 150 mg, Oral, BID, First dose on Tue02/20/18 at 2000, Until Discontinued, PACU & Post-op Given 02/20/2018 7:38 PM CDT 150 mg pregabalin (LYRICA) capsule 150 mg Given 02/23/2018 8:18 AM CDT 150 mg 150 mg, Oral, DAILY, First dose on Tue02/22/18 at 0800, Until Discontinued, 150mg in the AM, 450mg at HS Given 02/22/2018 7:43 AM CDT 150 mg pregabalin (LYRICA) capsule 450 mg Given 02/22/2018 9:05 PM CDT 450 mg 450 mg, Oral, HS, First dose on Tue02/21/18 at 2100, Until Discontinued, 150mg in the AM, 450mg at HS Given 02/21/2018 9:08 PM CDT 450 mg sennosides-docusate sodium (SENNA-S,SENNA Given 2017 8:20 AM CDT 2 Tablets PLUS) 8.6-50 MG per tablet 2 Tab 2 Tablet, Oral, BID, First dose on Tue02/20/18 at 2000, Until Discontinued, as laxative/stimulant, stool-softening agent, PACU & Post-op Given 02/22/2018 7:42 PM CDT 2 Tablets Given 02/22/2018 7:44 AM CDT 2 Tablets sodium chloride 0.9% New Bag Started 02/21/2018 4:26 AM 1,000 mL 10 0 mL/hr infusion CDT 1,000 mL, Intravenous, at 100 mL/hr, CONTINUOUS, Starting on Tue02/20/18 at 1700, PACU & Post-op Started 02/20/2018 6:57 PM CDT 1,000 mL 100 mL/hr sodium chloride 0.9% injection 3 mL Given 02/22/2018 5:15 PM CDT 3 mL 3 mL, Intravenous, Q8H, First dose on Tue02/20/18 at 1700, Until Discontinued, May DC IVF and saline lock once pt tolerating PO intake adequately. Saline lock until discontinued., PACU & Post-op Given 02/22/2018 7:53 AM CDT 3 mL Given 02/22/2018 12:00 AM CDT 3 mL tiotropium (SPIRIVA) inhalation capsule 18 Given 02/23/2018 8:22 AM CDT 18 mcg mcg 18 mcg, Inhalation, DAILY, First dose on Tue02/21/18 at 0945, Until Discontinued Given 02/22/2018 7:44 AM CDT 18 mcg Given 02/21/2018 10:22 AM CDT 18 mcg tiZANidine (ZANAFLEX) tablet 2-4 mg Given 02/21/2018 1:33 PM CDT 4 mg 2-4 mg, Oral, Q8H (NON-STND), First dose on Tue02/21/18 at 1215, Until Discontinued tiZANidine (ZANAFLEX) tablet 2-4 mg Given 02/23/2018 5:10 AM CDT 4 mg 2-4 mg, Oral, Q8H PRN, Muscle Spasms, Starting on Tue02/21/18 at 1900, Until Clementine 02/23/18 at 1350 Given 02/22/2018 8:52 PM CDT 4 mg Given 02/22/2018 12:32 PM CDT 4 mg vancomycin (VANCOCIN) injection 1 g Given 02/20/2018 6:51 AM CDT 1 g 1 g, Intravenous, ONCE (NON-SCHEDULED), Starting on Tue02/20/18 at 0537, For 1 dose, For patient weight less than 80 kg PRE-OP ANTIBIOTIC This is a SCIP surgery select reason for vanco from list: Beta-lactam allergy (penicillin or cephalosporin), Indications: Perioperative Pharmacoprophylaxis, Pre-op vancomycin 1 g IV piggyback PYXIS Started 02/21/2018 6:02 AM CDT 1,000 mg 1,000 mg, Intravenous, Administer over 60 Minutes, Q12H (NON-STND), First dose on Tue02/20/18 at 1830, For 24 hours, PACU & Post-op Started 02/20/2018 6:58 PM CDT 1,000 mg zonisamide (ZONEGRAN) capsule 300 mg Given 02/23/2018 8:19 AM CDT 300 mg 300 mg, Oral, BID, First dose on Tue02/21/18 at 0945, Until Discontinued Given 02/22/2018 7:42 PM CDT 300 mg Given 02/22/2018 7:43 AM CDT 300 mg documented in this encounter Active and Recently Administered Medications Times are shown in CDT. Scheduled Medication Order 02/21/2018 02/22/2018 02/23/2018 acetaminophen (TYLENOL) tablet 1,000 mg 0739 (Given - Provider: Alec Gifford RN)1333 (Given - Provider: Alec Gifford, RADHA)1958 (Given - Provider: Judith Orellana, RN) 0743 (Given - Provider: Alec Gifford, RADHA)14 05 (Given - Provider: Alec Gifford, RADHA)1940 (Given - Provider: Anisha Bach, RADHA) 0821 (Given - Provider: Marlen Segura, RADHA) 1,000 mg, Oral, TID, First dose on Tue02/20/18 at 2000, PACU & P ost-op cyanocobalamin (VITAMIN B12) tablet 500 mcg 1014 (Give n - Provider: Alec Gifford RN) 0742 (Given - Provider: Alec Gifford, RADHA) 0818 (Given - P rovider: Marlen Segura, RADHA) 500 mcg, Oral, DAILY, First dose on Tue02/21/18 at 0945 estradiol (VIVELLEDOT) 0.05 MG/24HR biweekly patch 1 Patch 1713 (Patch Applied - Provider: Shawn Patton, RADHA) 0759 (Patch Removed - Provider: Marlen Segura, RADHA)0821 (Patch Applied - Provider: Marlen Segura, RN) 1 Patch, Transdermal, TWICE WEEKLY (Once per day on Tue), First dose on Tue02/22/18 at 1600, Hazardous waste disposal required. fluticasone-salmeterol (ADVAIR) 250-50 MCG/DOSE diskus inhaler 1 Puff 1017 (Given - Provider: Alec Gifford RN)2108 (Given - Provider: Judith Orellana, RADHA) 0744 (Given - Provider: Alec Gifford RN)1943 (Given - Provider: Anisha Bach RN) 0822 (Given - Provider: Marlen Segura, RN) 1 Puff, Inhalation, BID, First dose on Tue02/21/18 at 0945 folic acid tablet 0.8 mg 1015 (Given - Provider: Alec Gifford RN) 0743 (Given - Provider: Alec Gifford RN) 0820 (Given - Provider: Marlen Segura, RN) 0.8 mg, Oral, DAILY, First dose on Tue02/21/18 at 0945 furosemide (LASIX) tablet 20 mg 1015 (Given - Provider: Alec Gifford RN) 0743 (Given - Provider: Alec Gifford RN) 0820 (Given - Provider: Marlen Segura, RADHA) 20 mg, Oral, DAILY, First dose on Tue02/21/18 at 0945 ketamine 1 mg/mL IV syringe INFUSION 5 mg/hr (5 mL/hr), Intravenous, at 5 mL/ hr, INTRA-OP, Starting Tue02/20/18 at 1322, For 1 dose, Continous infusion lamoTRIgine (LaMICtal) tablet 200 mg 1015 (Given - Pro vider: Alec Gifford RN)1958 (Given - Provider: Judith Orellana RN) 0743 (Given - Provider: Alec Gifford RN)1941 (Given - Provider: Anisha Bach, RADHA) 0819 (Given - Provider: Marlen Segura, RADHA) 200 mg, Oral, BID, First dose on Tue02/21/18 at 0945 lansoprazole (PREVACID) capsule 30 mg 1016 (Given - Provider : Alec Gifford RN) 0540 (Given - Provider: Anita Lundberg RN) 0510 (Given - Provider: Heather Carbajal RN) 30 mg, Oral, DAILY AT 0600, First dose on Tue02/21/18 at 0945 lidocaine (LIDODERM) 5 % patch 2 Patch 1 032 (Patch Applied - Provider: Alec Gifford RN - Comment: pt request)223 (Patch Removed - Provider: Shawn Patton RN) 817 (Patch Applied - Provider: Marlen navas, RADHA)2017 (Due: Patch Removed - Provider: Marlen Segura RN) 2 Patch, Transdermal, DAILY, First dose on Tue02/22/18 at 0800, Apply patch to joyce-incisional. Patch may remain in place for up to 12 hours in any 24 hour period, i.e. patches placed at 0800 should be removed at 2000. May cut patch to appropriate size. loratadine (CLARITIN) tablet 5 mg 1016 (Given - Provider: Sanchez Gifford RN) 0744 (Given - Provider: Alec Gifford RN) 0820 (Given - Provider: Marlen Segura, RADHA) 5 mg, Oral, DAILY, First dose on Tue02/21/18 at 0945 lurasidone (LATUDA) tablet 80 mg 1016 (Given - Provider: Alec Gifford RN) 0743 (Given - Provider: Alec Gifford RN) 0820 (Given - Provider: Marlen Segura RN) 80 mg, Oral, DAILY, First dose on Tue at 0945, Administer with food. Meal or snack must contain at least 350 calories. polyethylene glycol (MIRALAX) oral powder 17 g 0739 (G iven - Provider: Alec Gifford RN) 0742 (Given - Provider: Alec Gifford RN) 08 (Given - P rovider: Marlen Segura RN) 17 g, Oral, DAILY, First dose on 01/27 at 0800, Give daily while on narcotics. Do not give if ileus present., PACU & Post-op potassium chloride (K-DUR,KLOR-CONM) extended release tablet 20 mEq 1016 (Not Given - Provider: Alec Gifford RN - Reason: Patient/family refused)1958 (Not Given - Provider: Judith Orellana RN - Reason: Patient/family refused) 0744 (Given - Provider: Alec Gifford RN)1939 (Given - Provider: Anisha Bach, RADHA) 0819 (Given - Provider: Marlen Segura, RADHA) 20 mEq, Oral, BID, First dose on Tue02/21/18 at 0945 pregabalin (LYRICA) capsule 150 mg (CANCELED) 0739 (Gi saeid - Provider: Alec Gifford RN) 150 mg, Oral, BID, First dose on Tue02/20/18 at 2000, PACU & Pos t-op pregabalin (LYRICA) capsule 150 mg(Linked Group 1) 0743 (Given - Provider: Alec Gifford RN) 0818 (Given - Provider: Marlen Segura, RADHA) 150 mg, Oral, DAILY, First dose on Tue at 0800, 150mg in the AM, 450mg at HS pregabalin (LYRICA) capsule 450 mg(Linked Group 1) 210 8 (Given - Provider: Judith Orellana RN) 2105 (Given - Provider: Shawn Patton, RADHA) 450 mg, Oral, HS, First dose on 02/21 at 2100, 150mg in the AM, 450mg at HS sennosides-docusate sodium (SENNA-S,SENNA PLUS) 8.6-50 MG per tablet 2 Tab 0739 (Given - Provider: Alec Gifford RN)1957 (Given - Provider: Judith Orellana RN) 0744 (Given - Provider: Alec Gifford RN)194 (Given - Provider: Anisha Bach RN) 0820 (Given - Provider: Marlen Segura RN) 2 Tablet, Oral, BID, First dose on Tue at 2000, as laxative/stimulant, stool-softening agent, PACU & Post-op sodium chloride 0.9% injection 3 mL 0000 (Not Given - Provider: Manoj Singh RN - Reason: Other (Enter Reason in Comment Area) - Comment: IVF)0800 (Not Given - Provider: Alec Gifford RN - Reason: Other (Enter Reason in Comment Area) - Comme nt: IV infusing) 0000 (Given - Provider: Anita bunch RN)0753 (Given - Provider: Alec Gifford RN)1715 (Given - Provider: Shawn Patton RN) 0000 (Canceled Entry - Provider: Heather Carbajal RN)0800 (Canceled Entry - Provider: Marlen Segura RN) 3 mL, Intravenous, Q8H, First dose on Mo n 02/20/18 at 1700, May DC IVF and saline lock once pt tolerating PO intake adequately. Saline lock until discontinued., PACU & Post-op 1613 (Given - Provider: Judith Orellana, RADHA) tiotropium (SPIRIVA) inhalation capsule 18 mcg 1022 (G iven - Provider: Alec Gifford RN) 0744 (Given - Provider: Alec Gifford, RADHA) 0822 (Given - P rovider: Marlen Segura, RADHA) 18 mcg, Inhalation, DAILY, First dose on Tue02/21/18 at 0945 tiZANidine (ZANAFLEX) tablet 2-4 mg (CANCELED) 1333 (G iven - Provider: Alec Gifford RN) 2-4 mg, Oral, Q8H (NON-STND), First dose on Tue02/21/18 at 1215 vancomycin 1 g IV piggyback PYXIS (COMPLETED) 0602 (St arted - Provider: Anita Lundberg RN)0702 (Due: Infused - Provider: Anita Lundberg RN) 1,000 mg, Intravenous, Administer over 6 0 Minutes, Q12H (NON-STND), First dose on Tue02/20/18 at 1830, For 24 hours, PACU & Post-op zonisamide (ZONEGRAN) capsule 300 mg 1015 (Given - Pro vider: Alec Gifford, RADHA)1958 (Given - Provider: Judith Orellana RN) 0743 (Given - Provider: Alec Gifford RN)194 (Given - Provider: Anisha Bach RN) 0819 (Given - Provider: Marlen Segura, RN) 300 mg, Oral, BID, First dose on Tue02/21/18 at 0945 Continuous Medication Order 02/21/2018 02/22/2018 02/23/2018 sodium chloride 0.9% infusion (CANCELED) 0426 (New Bag Started - Provider: Anita Lundberg RN)0933 (Stopped - Provider: Alec Gifford, RADHA) 1,000 mL, Intravenous, at 100 mL/hr, CON TINUOUS, Starting Tue02/20/18 at 1700, PACU & Post-op PRN Medication Order 02/21/2018 02/22/2018 02/23/2018 benzocaine-menthol (CEPACOL) lozenge 1 Lozenge 1 Lozenge, Oral, PRN PER PARAMETERS, Thr oat Pain, Starting Tue02/20/18 at 1635, PACU & Post-op bisacodyl (DULCOLAX) rectal suppository 10 mg 10 mg, Rectal, DAILY PRN, Constipation, Starting Tue02/21/18 at 0000, PACU & Post-op diazePAM (VALIUM) tablet 2.5-5 mg (COMPLETED) 1713 (Given - Provider: Shawn Patton, RADHA) 2.5-5 mg, Oral, ONCE PRN, Anxiety, Starting Tue02/22/18 at 1601, For 1 dose diazePAM (VALIUM) tablet 5 mg 2320 (Given - Prov ider: Heather Carbajal RN) 5 mg, Oral, HS PRN, Anxiety, Starting Tue02/22/18 at 1533 diphenhydrAMINE (BENADRYL) capsule 25-50 mg 25-50 mg, Oral, Q6H PRN, Itching, Starting Tue02/20/18 at 16 35, PACU & Post-op HYDROmorphone (DILAUDID) injection 0.2-0.4 mg (CANCELE D) 0233 (Given - Provider: Anita Lundberg RN)0601 (Given - Provider: Anita Lundberg RN)1259 (Given - Provider: Coral Beaver, RADHA)2107 (Given - Provider: Judith Orellana RN) 0035 (Given - Provider: Anita bunch RN)0355 (Given - Provider: Anita Lundberg, RADHA)0704 (Given - Provider: Anita Lundberg, RADHA)1028 (Given - Provider: Alec Gifford RN) 0.2-0.4 mg, Intravenous, Q3H PRN, Pain, Use if unable to take PO, Starting Tue02/20/18 at 1635, For 48 hours, Give IV opioid for breakthrough pain, if unable to give PO or per patient preference., PACU & Post-op HYDROmorphone (DILAUDID) tablet 2-4 mg 0056 (Given - P rovider: Anita Lundberg RN)0425 (Given - Provider: Anita Lundberg RN)0738 (Given - Provider: Alec Gifford RN)1034 (Given - Provider: Alec Gifford RN)1612 (Given - Provider: Judith Orellana, RADHA) 0227 (Given - Provider: Anita bunch RN)0540 (Given - Provider: Anita Lundberg RN)0836 (Given - Provider: Alec Gifford RN)1140 (Given - Provider: Alec Gifford RN)1433 (Given - Provider: Alec Miguel RN) 0022 (Given - Provider: Heather espinoza, RN)0325 (Given - Provider: Heather Carbajal RN)0643 (Given - Provider: Heather Carbajal RN)0939 (Given - Provider: Marlen Segura RN) 2-4 mg, Oral, Q3H PRN, Pain, Starting 02/20/18 at 1 635, PACU & Post-op 1958 (Given - Provider: Judith Orellana RN)2318 (Given - Provider: Judith Orellana RN) 1740 (Given - Provider: Shawn Mcdaniels RN)2052 (Given - Provider: Shawn Patton RN) methocarbamol (ROBAXIN) tablet 500 mg (CANCELED) 0056 (Given - Provider: Anita Lundberg RN)1034 (Given - Provider: Alec Gifford RN) 500 mg, Oral, Q6H PRN, Muscle Spasms, St arting 02/20/18 at 1635, PACU & Post-op naloxone (NARCAN) injection 0.2 mg 0.2 mg, Intravenous, PRN PER PARAMETERS, Opioid Reversal, Excessive Sedation/Respiratory Rate less than 8 breaths per minute.? Notify MD if given., Starting 02/20/18 at 1635, Excessive Sedation/Re spiratory Rate less than 8 breaths per m inute.? Notify MD if given., PACU & Post-op ondansetron (ZOFRAN-ODT) disintegrating tablet 4 mg 13 03 (Given - Provider: Coral Beaver RN) 0708 (Given - Provider: Anita Lundberg RN) 4 mg, Oral, Q8H PRN, Nausea, Vomiting, S tarting Tue02/21/18 at 0917, Do not swallow tablet whole. Allow to dissolve on the tongue without chewing. prochlorperazine (COMPAZINE) injection 10 mg 10 mg, Intravenous, Q6H PRN, Nausea, Vom iting, Starting Tue02/20/18 at 1635, Give 1st line medications then 2nd line then 3rd line. Progress to next line if medication is ineffective after 15 minutes or has been previously ineffective, or if a medication for a line is not ordered. May use medication from any line if patient preference indicates. If third line agent ineffective call MD. If unable to gi ve IV medications contact MD. 1st Line - prochlorperazine , 2nd Line - ondansetron 3rd Line - metoclopramide, PACU & Post-op sodium chloride 0.9% injection 3-5 mL 3-5 mL, Intravenous, PRN BEFORE&AFTER ME DICATIONS OR LAB DRAW, Line Patency, Starting Tue02/20/18 at 1635, saline flush 3-5 mL IV before and after lab draws and medications PRN IV maintenance, PACU & Post-op tiZANidine (ZANAFLEX) tablet 2-4 mg 1835 (Given - Prov ider: Shawn Patton RN) 0400 (Given - Provider: Anita bunch RN)1232 (Given - Provider: Alec Gifford RN)2052 (Given - Provider: Shawn Patton RN) 0510 (Given - Provider: Heather Carbajal RN) 2-4 mg, Oral, Q8H PRN, Muscle Spasms, Starting Tue02/21/18 at 19 00 Linked Groups Order Group 1: pregabalin (LYRICA) capsule 150 mgJump to med 150 mg, Oral, DAILY, First dose on Tue at 0800
150mg in the AM, 450mg at HS
And pregabalin (LYRICA) capsule 450 mgJump to med 450 mg, Oral, HS, First dose on 02/21 at 2100
150mg in the AM, 450mg at HS
documented in this encounter Care Teams Virtual Classroom Manager Relationship Specialty Start Date End Date Jose Holden MD PCP - General Otolaryngology 12/14/17 [place] [address] documented as of this encounter
--- OUTSIDE RECORDS SUMMARY | 2022-07-06 15:00 | XMS_ITS | Encounter Summary ---
:1965 Author Organization [facility] Address [address] [place] [address] Care Team Providers Name Role Phone Jose Holden MD Primary Care Provider [phone] Encounter Details Date Type Department Care Team Description 06/20/2018 Consent for [facility] Procedure[facility]Treat [facility] Tony Alvarado MD FOR TX/PROCEDURE ent Pain Management [address] [place] [phone] Social History Tobacco Use Types Packs/Day Years [...] on filedocumented in this encounter Care Teams Fishing Hand Relationship Specialty Start Date End Date Jose Holden MD PCP - General Otolaryngology 12/14/[address] [place], [place] [id number] documented as of this encounter
--- OUTSIDE RECORDS SUMMARY | 2022-07-06 15:00 | XMS_ITS | Encounter Summary ---
:1965 [facility] Address [address] [place] [address] Care Team Providers Name Role Phone Jose Holden MD Primary Care Provider Encounter Details Date Type Department Care Team Description 06/21/2018 Orders Only External to [facility] No Primary/Referring, [...] Name Priority Date/Time Associated Diagnosis Comme nts MRI SPINE--SCAN 06/21/2018 12:00 AM Resul ts for this CDT procedure are i n the results section. documented in this encounter Results MRI SPINE--SCAN (06/21/2018 12:00 AM CDT) Anatomical Region Laterality Modality Other Specimen (Source) Anatomical Location Collection Method / Collectio n Time Received Time / Laterality Volume 06/21/2018 Narrative This result has an attachment that is no t available. Phy No Primary/Referring DUMMY/OTHER/AR documented in this encounter Visit Diagnoses Not on filedocumented in this encounter Care Teams Client Renewal Specialist Relationship Specialty Start Date End Date Jose Holden MD PCP - General Otolaryngology 12/14/17 [address] [place] [address] documented as of this encounter
--- OUTSIDE RECORDS SUMMARY | 2022-07-06 15:00 | XMS_ITS | Encounter Summary ---
:1965 [facility] Address [address] [place] [address] Care Team Providers Name Role Phone Jose [...] Name Priority Date/Time Associated Diagnosis Comme nts OUTSIDE IMAGING 06/21/2018 12:00 AM Resul ts for this CDT procedure are i n the results section. documented in this encounter Results OUTSIDE IMAGING (06/21/2018 12:00 AM CDT) Anatomical Region Laterality Modality Other Specimen (Source) Anatomical Location Collection Method / Collectio n Time Received Time / Laterality Volume 06/21/2018 Narrative This result has an attachment that is no t available. Phy No Primary/Referring RAD_1 documented in this encounter Visit Diagnoses Not on filedocumented in this encounter Care Teams Laborer Car Barn Relationship Specialty Start Date End Date Jose Holden MD PCP - General Otolaryngology 12/14/17 [place] [address] documented as of this encounter
--- OUTSIDE RECORDS SUMMARY | 2022-07-06 15:00 | XMS_ITS | Encounter Summary ---
:1965 Author Organization [facility] Address [address], [place] [address] Care Team Providers Name Role Phone Jose Holden MD Primary Care Provider [phone] Reason for Visit Procedure/Equipment (Routine) - Incomplete Specialty Diagnoses / Procedures Referred By Contact Refer red To Contact Diagnoses Cervical spondylosis with radiculopathy (HRC) Sneha Maher, Sirisha Celaya, Procedures XR Cervical Spine AP/Lat Upright TECHNICAL SALES SPECIALIST, TAX AUDIT MANAGER [address] [place] [address] Referral ID Status Reason Start Date Expiration Date Visits V isits Requested Authorized [id number] Incomplete 02/21/2018 05/23/2019 1 1 Encounter Details Date Type Department Care Team Description 04/05/2018 Imaging [facility] Sneha Maher, Cervical spondylosis [facility] Sirisha Celaya, APR N, TAX AUDIT MANAGER with radiculopathy Radiology [address] [place] [address] [phone] (Wo rk) Social History Tobacco Use Types [...] Diagnosis Comme nts XR CERVICAL SPINE Routine 04/05/2018 12:46 Cervical spondylosi s Results for this AP/LAT UPRIGHT PM CDT with radiculopathy procedu re are in the results section. documented in [...] or failure. Anatomic alignment. Shoulder prosthesis. Sirisha Yomi Maher TECHNICAL SALES SPECIALIST, TAX AUDIT MANAGER RAD GD documented in this encounter Visit Diagnoses Diagnosis Cervical spondylosis with radiculopathy (HRC) Cervical spondylosis with myelopathy documented in this encounter Care Teams Plywood Patcher Relationship Specialty Start Date End Date Jose Holden MD PCP - General Otolaryngology 12/14/[address] [place], [place] [address] [address] documented as of this encounter
--- OUTSIDE RECORDS SUMMARY | 2022-07-06 15:00 | XMS_ITS | Encounter Summary ---
:1965 [facility] Address [address] [place] [address] Care Team Providers Name Role Phone Jose Holden MD Primary Care Provider [phone] Reason for Visit Procedure/Equipment (Routine) - Incomplete Specialty Diagnoses / Procedures Referred By Contact Refer red To Contact Diagnoses S/P cervical spinal fusion Sirisha Rankin, Procedures XR Cervical Spine AP/Lat Upright OUTPATIENT SCHEDULER, ASSESSMENT CLINICIAN [address] [place] [address] Referral ID Status Reason Start Date Expiration Date Visits V isits Requested Authorized [id number] Incomplete 04/05/2018 07/05/2019 1 1 Encounter Details Date Type Department Care Team Description 06/14/2018 Imaging [facility] Sneha Maher, S/P cervi [facility] spinal [facility] Sirisha Celaya, APR N, ASSESSMENT CLINICIAN fusion Radiology [address] [place] [address] [place] [address] [phone] Social History Tobacco Use Types Packs/Day Years [...] Diagnosis Comme nts XR CERVICAL SPINE Routine 06/14/2018 1:41 PM S/P cervical spin al Results for this AP/LAT UPRIGHT CDT fusion procedure are in the results section. documented in this encounter Results XR Cervical Spine AP/Lat Upright (06/14/2018 1:41 PM CDT) Anatomical Region Laterality Modality Spine, C-Spine, Neck Computed Radiograph y Specimen (Source) Anatomical Collection Method Collection Time Re ceived Time Location / / Volume Laterality 06/14/2018 1:41 PM CDT Narrative 06/14/2018 5:54 PM CDT [facility] XR CERVICAL SPINE AP/LAT UPRIGHT 06/14/2018 1:41 PM INDICATION: S/p cervical fusion COMPARISON: 04/05/[address] ain film. FINDINGS: Posterior spinal instrumented fusion extends from C2 through T3. No hardware complication. Solid bony fusion across the disc spaces of C3-C4 through C7-T1. Diffuse osteopenia. No significant l oss of disc height at C2-C3. Mild atlant odental degenerative change. No prevertebral soft tissue swelling. Remainder unchanged. Procedure Note Unruly Tracy MD - 06/14/2018Formatti ng of this note might be different from the original. [facility] XR CERVICAL SPINE AP/LAT UPRIGHT 06/14/2018 1:41 PM INDICATION: S/p cervical fusion COMPARISON: 04/05/[address] ain film. FINDINGS: Posterior spinal instrumented fusion extends from C2 through T3. No hardware complication. Solid bony fusion across the disc spaces of C3-C4 through C7-T1. Diffuse osteopenia. No significant loss of disc height at C2-C3. Mild atlantodental dege nerative change. No prevertebral soft tissue swelling. Remainder unchanged. Sirisha Maher OUTPATIENT SCHEDULER, ASSESSMENT CLINICIAN RAD GD documented in this encounter Visit Diagnoses Diagnosis S/P cervical spinal fusion Arthrodesis status documented in this encounter Care Teams Molder Operator Relationship Specialty Start Date End Date Jose Holden MD PCP - General Otolaryngology 12/14/17 [place] [address] documented as of this encounter
--- OUTSIDE RECORDS SUMMARY | 2022-07-06 15:00 | XMS_ITS | Encounter Summary ---
:1965 Author Organization [facility] Address [address], [place] [address] Care Team Providers Name Role Phone Jose Holden MD Primary Care Provider [phone] Encounter Details Date Type Department Care Team Description 02/20/2018 Consent for [facility] INFORM ED CONSENT Procedure/Treatment RECORD Social History Tobacco Use Types Packs/Day Years [...] on filedocumented in this encounter Care Teams Injection Molding Technician Relationship Specialty Start Date End Date Jose Holden MD PCP - General Otolaryngology 12/14/17 [place] [address] documented as of this encounter
--- OUTSIDE RECORDS SUMMARY | 2022-07-06 15:00 | XMS_ITS | Encounter Summary ---
:[address] [facility] Address [address] [place] [address] Care Team Providers Name Role Phone Jose Holden MD Primary Care Provider [phone] Reason for Referral Procedure/Equipment (Routine) - Closed Specialty Diagnoses / Procedures Referred By Contact Refer red To Contact Diagnoses Neck pain Pete Gonzalez MD [address] [place] [address] Referral ID Status Reason Start Date Expiration Date Visits Requ ested Visits Authorized [id number] Closed 06/14/2018 12/11/2018 1 1 Scheduling Instructions If scheduling assistance is needed, adriana dean inquire with the medical office staff upon exiting your appointment or contact the ordering clinic for recommended locations. This recommended service/s may not be [place] by your insurance coverage. To find out your specific benefit coverage, please c all the number on your insurance card. Reason for Visit Reason Comments Revisit Encounter Details Date Type Department Care Team Description 06/14/2018 Office Visit [facility], Lumbar rad iculopathy (Primary Dx); [facility] Neck pain Neurosurgery/Ortho [address] [facility] Spine [address] [place] [address] [place] [id number] Social History Tobacco Use Types Packs/Day Years [...] Sign Reading Time Taken Comments Blood Pressure 127/109 06/14/2018 1:46 PM CDT Pulse 102 06/14/2018 1:46 PM CDT Temperature 37 ??C (98.6 ??F) 06/14/2018 1:46 PM CDT Respiratory Rate 18 06/14/2018 1:46 PM CDT Oxygen Saturation - - Inhaled Oxygen Concentration - - Weight - - Height - - Body Mass Index - - documented in this encounter Patient Instructions Patient InstructionsChava Simon RN - 06/14/2018 1:40 PM CDT Neurosurgery Center Patient Instructions Tests: You will be scheduled for a lumbar MRI prior to your next appointment. You will be scheduled for a lumbar MRI. Referral: You will be scheduled for a(n) trigger point injections with provider of your choice. You have been referred for acupuncture. Follow up: with Dr. Pete Gonzalez in 2 months. If tests were ordered, they will be [...] your understanding. Please call the Neurosurgery Center [phone] with any further questions or concerns or if your symptoms worsen. Thank you for coming to see us today. We are your partner. documented in this encounter Progress Notes Pete Gonzalez MD - 06/14/2018 1:40 PM CDT Neck pain This is a 53-year-old patient status post revision posterior C2 to the thoracic instrumented fusion including removal of hardware. As of note this patient had hardware from the past that we did not have a removal set for. We did add additional hardware adjacent to this hardware. Initially the patient did well postoperatively but then in early March had a fall which started off a pain cascade which now extends into her paraspinal muscles. 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 The patient has good range of motion and a posterior incision is well-healed. I did expect the patient that likely postoperatively the nerves are irritated by the fall and that we will try trigger point injections into her paraspinal muscles to try to relieve some of this pain. X- rays demonstrate that the hardware is stable. The patient also noted that she has left sciatic pain in the setting of previous multiple spinal cord stimulators and lumbar fusion. We will obtain an MRI and CT as there has not been a recent evaluation of her lower back and she continues to have severe symptoms. I also recommended that the patient look into acupuncture and massage for her posterior cervical thoracic paraspinal muscles. The patient was reassured by this and will follow up with us in approximately 2 months. Total patient care time including face to face time was minutes and greater than 50% of the time was spent counseling and coordinating care. Voice recognition software was used for this statement, which is prone to typos and grammatical errors. documented in this encounter Plan of Treatment Scheduled Referrals Name Type Priority Associated Diagnoses Order S chedule Acupuncture Referral Routine Neck pain Ordered: 2017 documented as of this encounter Visit Diagnoses Diagnosis Lumbar radiculopathy - Primary Thoracic or lumbosacral neuritis or radi culitis, unspecified Neck pain Cervicalgia documented in this encounter Care Teams Hole Digger Relationship Specialty Start Date End Date Jose Holden MD PCP - General Otolaryngology 12/14/17 [place] [address] documented as of this encounter
--- OUTSIDE RECORDS SUMMARY | 2022-07-06 15:00 | XMS_ITS | Encounter Summary ---
:1965 Author Organization [facility] Address [address] [address] Care Team Providers Name Role Phone Jose Holden MD Primary Care Provider [phone] Reason for Visit Auth/Cert Specialty Diagnoses / [...] Expiration Date Visits Requ ested Visits Authorized [id number] 1 1 Encounter Details Date Type Department Care Team Description 02/20/2018 [facility] Pete Gonzalez MD [address] [place] [address] [place] [address] [phone] (Wo rk) Social History Tobacco Use Types [...] on filedocumented in this encounter Care Teams Video Poker Floorman Relationship Specialty Start Date End Date Jose Holden MD PCP - General Otolaryngology 12/14/[address] [place] [address] [phone] (work) documented as of this encounter
--- OUTSIDE RECORDS SUMMARY | 2022-07-06 15:00 | XMS_ITS | Encounter Summary ---
:1965 Author Organization [facility] Address [address], [place] [address] Care Team Providers Name Role Phone Jose Holden MD Primary Care Provider [phone] Reason for Visit Reason Comments Medication Check In Encounter Details Date Type Department Care Team Description 03/07/2018 Telephone [facility] Pete Gonzalez MD Medication Check In [facility] [place], [place] [address] [address] [place] [address] [phone] Social History Tobacco Use Types Packs/Day Years [...] encounter Nursing Notes Chava Simon RN - 03/07/2018 1:47 PM CDT Relayed message from Lois Pham PA-C to patient. Patient stated understanding. She will touch base with Dr. Martin for any further refills and understands neurosurgery will no longer prescribe anpost-operative pain medications. Chava Simon RN 03/07/2018, 1:59 PM Lois Pham PA-C - 03/07/2018 12:45 PM CDT Please discontinue BOTH orders. She cannot receive rx from two providers. This clinic will be done prescribing as her PCP has been prescribing at this point. Cancel dilaudid and tizanidine. Lois Pham PA-C Michael Cruz - 03/07/2018 12:25 PM CDT Pharmacist Mandy calling from [facility]. She would like to inform provider & care team that insurance will only approve 5 tabs of the requested 30 tab oxycodone due to patient alreadyreceiving 150 5MG tabs from her pcp Dr. Rosetta Martin who prescribes this to her regularly. Patient last received this refill of 150 5MG tabs on 03/03/18. She also wants to inform provider & care team that patient also receives 120 tabs of Methocarbamol 500MG from Dr. Martin as well since Dr. Gonzalez's team had prescribed her tizanidine. Please call Mandy back with any questions. Michael Cruz 03/07/2018, 12:31 PM documented in this encounter Plan of Treatment Not on filedocumented as of this encounter Visit Diagnoses Not on filedocumented in this encounter Care Teams Microfiche Camera Operator Relationship Specialty Start Date End Date Jose Holden MD PCP - General Otolaryngology 12/14/17 [place] [address] documented as of this encounter
--- OUTSIDE RECORDS SUMMARY | 2022-07-06 15:00 | XMS_ITS | Encounter Summary ---
:1965 [facility] Address [address], [place] [address] Care Team Providers Name Role Phone Jose Holden MD Primary Care Provider [phone] Reason for Visit Auth/Cert Specialty Diagnoses / [...] Expiration Date Visits Requ ested Visits Authorized [id number] 1 1 Encounter Details Date Type Department Care Team Description 02/20/2018 [facility] Pete Gonzalez MD [address] [place] [address] [place] [address] [phone] (Wo rk) Social History Tobacco Use Types [...] Date/Time Associated Diagnosis Comme nts XR C-ARM 30-59 Routine 02/20/2018 12:36 PM Result s for this MINUTES CDT procedure are i n the results section. documented in this encounter Results XR C-Arm 30-59 Minutes (02/20/2018 12:36 PM CDT) Anatomical Region Laterality Modality Other Specimen (Source) Anatomical Location Collection Method / Collectio n Time Received Time / Laterality Volume Narrative 02/20/2018 12:36 PM CDT Fluoroscopy provided by a medical laboratory technologist. Exact fluoroscopy time is documented in end of exam information in EPIC Pete Gonzalez MD RAD GD documented in this encounter Visit Diagnoses Not on filedocumented in this encounter Care Teams Assistant Press Operator Relationship Specialty Start Date End Date Jose Holden MD PCP - General Otolaryngology 12/14/[address] [place] [address] documented as of this encounter
--- OUTSIDE RECORDS SUMMARY | 2022-07-06 15:00 | XMS_ITS | Encounter Summary ---
:1965 Author Organization [facility] Address [address] [place] [address] Care Team Providers Name Role Phone Jose Holden MD Primary Care Provider [phone] Encounter Details Date Type Department Care Team Description 03/24/2018 [facility]phone [facility] Chava Simon RN [facility]ine [address] [place] [address] Social History Tobacco Use Types Packs/Day [...] encounter Nursing Notes Chava Simon RN - 03/24/2018 10:22 AM CDT Relayed message from Sirisha to patient. Patient stated understanding. Chava Simon RN 03/24/2018, 10:24 AM Sirisha Rankin, NIKKY, SHEET ROCK HANGER - 03/24/2018 9:52 AM CDT Continue to monitor symptoms. No change in plan/appointment at this time. We will review cervical CTwhen it is available. Sirisha Jefferson APRN, SHEET ROCK HANGER 03/24/2018, 9:53 AM Electronically signed by Sirisha Rankin, CONSERVATION BIOLOGY PROFESSOR, SHEET ROCK HANGER at 03/24/2018 9:54 AM DENT Chava Simon RN - 03/24/2018 9:23 AM CDT Patient called and state she was in a little accident last night. She ended up going to [facility]. They did imaging of neck and head and stated everything looks goods. Patient states she had a CT of head and neck. Patient will be picking up CD of imaging today and dropping off on 03/27/2018. Patient states she lives in an apartment building and there was a table behind a door there. She pushed the door really hard on the door and got the door half way open and the door closed on her causing her to hit her head and shoulder really hard. 1. Where does your pain originate: in neck area 2. Please rate your pain in this location (0 is no pain, 10 is terrible pain): currently 8/10 3. Does your pain radiate? If so, where to: left arm 4. Please rate the pain in these areas: 8/10 5. Do you have any numbness or tingling? If so, where: shooting down left arm and into fingers. 6: If you have numbness or tingling, does anything make it worse or better: positionally if patient abducts and adducts arm, numbness can change. It depends on the positioning. Patient states she is able to peanut picker a coffee cup with left hand. Patient is able to hold phone to face. Patient able to wiggle fingers. Patient able to make closed fist. She states there is not weakness in hand but the numbness feels extremely weird. 7. Are you using any medications, ice, heat, or other modalities to deal with the current pain: heat, ice, oxycodone, and resting 8. Are you having any of the follow: loss of control of bowel or bladder function. saddle numbness (numbness on inner thigh area). new leg/foot weakness: no to all red flag symptoms. Team, please review above and advise. Patient has an appointment 04/05/2018. Would you like appointment moved up? She already has XR cervical prior to appointment, but would you like any additionally imaging (she is dropping of CT head and neck images to clinic on 03/27/18 which were done at [facility]) Chava Simon RN 03/24/2018, 9:37 AM documented in this encounter Plan of Treatment Not on filedocumented as of this encounter Visit Diagnoses Not on filedocumented in this encounter Care Teams Groundskeeper Supervisor Relationship Specialty Start Date End Date Jose Holden MD PCP - General Otolaryngology 12/14/[address] [place] [address] documented as of this encounter
--- OUTSIDE RECORDS SUMMARY | 2022-07-06 15:00 | XMS_ITS | Encounter Summary ---
:1965 Author Organization [facility] Address [address], [place] [address] Care Team Providers Name Role Phone Jose Holden MD Primary Care Provider Reason for Visit Reason Onset Date Comments Refill 03/01/2018 Encounter Details Date Type Department Care Team Description 03/01/2018 Refill [facility] Neuroscience Julian Chava Simon RN Refill Neurosurgery/Ortho S [address] [place] [address] Social History Tobacco Use Types [...] encounter Nursing Notes Chava Simon RN - 03/01/2018 11:57 AM CDT Relayed message from Sirisha to patient. Patient stated understanding. Chava Simon RN 03/01/2018, 11:58 AM Sirisha Rankin APRN, KALPANA - 03/01/2018 11:47 AM CDT Refill approved. Frequency has been decreased to 1-2 tabs Q4 hours as per standard weaning. Sirisha Jefferson APRN, LINT CLEANER 03/01/2018, 11:49 AM Chava Simon RN - 03/01/2018 11:38 AM CDT Pain med refill for Dilaudid Physician: Dr. Gonzalez DOS:02/20/2018 Last refill: 02/22/18 Refill date if max sig used: 02/28/2018 Tablets being used per day: 16 tablets per day How are you taking the medication (ex: 1 tab q3hr): 2 tablets every 3 hours; states some times she only take one or 2 tablets every 4-5 hours. Tablets left currently: 20 tablets Does pt. have a f/u appointment: 04/05/2018 Pharmacy: [facility] pharmacy Chava Simon RN 03/01/2018, 11:40 AM documented in this encounter Plan of Treatment Not on filedocumented as of this encounter Visit Diagnoses Not on filedocumented in this encounter Care Teams Estimator Printing Plate Making Relationship Specialty Start Date End Date Jose Holden MD PCP - General Otolaryngology 12/14/[address] [place], [place] [address] [address] documented as of this encounter
--- OUTSIDE RECORDS SUMMARY | 2022-07-06 15:00 | XMS_ITS | Encounter Summary ---
:1965 Author Organization [facility] Address [address] [place] [address] Care Team Providers Name Role Phone Jose Holden MD Primary Care Provider [phone] Reason for Visit Reason Comments Revisit Bilateral cervical/thoracic trigger point injections Encounter Details Date Type Department Care Team Description 06/20/2018 Office Visit [facility] Myalgia (Primary Dx); [facility] Pain RMD H/O cervical spinal arthrodesis; Management [address] Cervical vertebral fusion; [address] [place], [place] Fibromyalgia; [place] [address] Tobacco use disorder; [phone] Status post tot al left knee replacement (Work) Social History Tobacco Use Types Packs/Day Years [...] Sign Reading Time Taken Comments Blood Pressure 105/85 06/20/2018 1:16 PM CDT Pulse 91 06/20/2018 1:16 PM CDT Temperature - - Respiratory Rate - - Oxygen Saturation - - Inhaled Oxygen Concentration - - Weight - - Height - - Body Mass Index - - documented in this encounter Patient Instructions Patient InstructionsGillian Harding - 06/20/2018 1:00 PM CDT Impression: Myalgia H/O cervical spinal arthrodesis Cervical vertebral fusion Fibromyalgia Tobacco use disorder (HRC) Status post total left knee replacement Further testing: None Therapies: Regular exercise/activity Medications: No changes Recommend to continue to decrease opioid use until off. Effects of Long-Term Opioid Use Opioid Prescriptions: There is good evidence for short-term pain control with opioids (3-6 months) and poor evidence for long-term pain control. Overall, the main goal of the opioid therapy is to increase function, thus allowing one to continue with daily exercises, prevent deconditioning, and preventthe development of further pain generators. There are several risks of opioids that you should know about. Risks of Opioids: ?? Physical dependence (you need to continue it to prevent withdrawal symptoms; NOT the same as addiction) ?? Tolerance (decreased duration of pain relief) ?? Addiction (preoccupation with the drug, inability to control the amount used, craving the psychological effects of the drug, continued use despite adverse effects) ?? Constipation - make sure you are having regular bowel movements and taking supplement stool softeners if necessary. Opioids slow down the gastrointestinal tract and carry the risk of bowel obstruction if ignored. ?? Nausea ?? Sleep apnea - may worsen sleep apnea and further respiratory depression. ?? Hormonal effects (low testosterone) ?? Accelerated bone loss ?? Hyperalgesia (a phenomenon of opioids increasing your baseline pain overtime) ?? Immunosuppression ?? For women - risk of opioid dependence and opioid withdrawal of the baby after . There is also a possible risk of miscarriage while on high dose opioids. ?? The most serious risk is unintentional overdose and . Opioids can slow your breathing down, or stop your breathing. The risk is amplified when someone is on multiple medications or substances that cause sedation. This can include the use of benzodiazepines, alcohol, or sleep aids. It can also cause or worsen sleep apnea, a condition where you stop breathing adequately during certain times at night. Driving with Opioids: It is ALWAYS illegal to drive while impaired by any substance, including opioids, benzodiazepines, and sedating medications, in ALL states. As laws can change control analyst time, one should review the state government website to understand the laws governing driving while on prescription medications, such as opioids. Safe Storage of Opioids It is importance to maintain safe storage of controlled substances, and keep these medications locked and secured from family members or children. c Equipment: none Referrals & Procedures (i.e injections): Trigger point injections today Restrictions: We reviewed hurt versus harm We discussed pacing and energy conservation Follow up: as needed If you have any questions or concerns about your visit, symptoms, medication, test results, or it isnot clear what your diagnosis or treatment plan is, please contact me via Soce[employer] online messaging or call the office at and ask to speak to a nurse. Tony Pittman MD Pain Medicine documented in this encounter Progress Notes Tony Pittman MD - 06/20/2018 1:00 PM CDT I had the pleasure of meeting Ms. Angie Mosquera on 06/20/2018 in the outpatient pain clinic in consult for Dr. Earlene Oliveros with regards to her neck and head pain. Subjective: 53 y.o. female with past medical [...] changes. No incontinence of bowel or bladder. Current treatments include: Oxycodone 5 mg Q6H - Prescribes by [facility], has been taking for many years. Reports that she was previously on a much higher doses Medical Marijuana Lyrica 600 mg total per day Tizanidine PRN Previous medication treatments included: Anti-convulsants: Lyrica Muscle [...] anterior cervical fusion 2016 Dr. Ihsan Brooke, [facility] past surgical history reviewed with patient. [...] topically. ??? LYRICA 150 MG capsule ??? naloxone (NARCAN) 4 MG/0.1ML nasal liquid 4 mg by Nasal route. 02/13/2018: PRN ??? NICOTINE 10 MG inhaler ??? Nutritional Supplements (PYCNOGENOL) 300-30 MG Take 1 Tab by mouth. ??? ondansetron (ZOFRAN-ODT) 4 MG disintegrating tablet Take 4 mg by mouth. ??? potassium chloride (K-DUR,KLOR-CONM) 10 MEQ tablet [...] Gain No facility-administered medications prior to visit. [place] and [place] Prescription Monitoring Program reviewed Allergies: Allergies Allergen [...] in her mother. Social history:she lives in [place], [place].she is not currently working. Smokin/2 ppd. Alcohol: None. Street drugs: Medical marijuana. Complete ROS were reviewed and are negative except those noted in the history and physical exam. Objective: BP 105/85 Pulse 91 Estimated body mass index is 30.47 kg/(m^2) [...] of motion extremely limited.. Tender to palpation bilateral levator scapulae, bilateral splenius capitis, bilateral trapezius. Neuro: AAOx3. CN [...] swelling. Remainder unchanged. Assessment: 1. Myalgia: Patient does appear to have significant myofascial pain. Recommend trial of trigger point injections today. 2. H/O cervical spinal arthrodesis 3. Cervical vertebral fusion 4. Fibromyalgia 5. Tobacco use disorder (HRC) 6. 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 Patient education: I went over the above diagnoses and treatment plan with her and answered all of her questions. 2. Imaging review: None 3. Exercise program: Regular exercise and activity 4. Medications: No changes. Do not recommend regional operations manager opioid use, continue to decrease use until off. 5. Imaging Orders: None. 6. Interventions: Trigger point injections today Based on history and physical exam, unlikely tumor or mass causing pain 7. Referrals: None 8. Follow up: As needed Procedure: Trigger point injections Dx: 1. Myalgia [...] 0.5 inch was used to inject bupivacaine 0.25% in the following areas: 1. Right levator scapulae 1 mL 2. Left levator scapulae 1 mL 3. Right semispinalis 1 mL 4. Left semispinalis 1 mL 5. Right trapezius 1 mL 6. Left trapezius 1 mL Total volume injected: 6 ml of bupivacaine 0.5% The pt tolerated the procedure well without complications. Tony Pittman MD Pain Medicine Physical Medicine and Rehabilitation [facility] Pain Management This document serves as a record of services personally performed by Tony Pittman MD. It was created on his behalf by Gillian Harding, a trained medical director/head team physician. The creation of this record is based on the scribe's personal observations and the provider's statements to her. The document has been checked and approved by the attending provider. documented in this encounter Nursing Notes Lawrence Arenas RN - 06/20/2018 1:00 PM CDT Patient denied any dizziness or light headedness post injections and was able to ambulate out of clinic independently. Lawrence Arenas RN. documented in this encounter Plan of Treatment Not on filedocumented as of this encounter Visit Diagnoses Diagnosis Myalgia - Primary Mylagia and myositis, unspecified H/O cervical spinal arthrodesis Arthrodesis status Cervical vertebral fusion Klippel-Feil syndrome Fibromyalgia Mylagia and myositis, unspecified Tobacco use disorder (HRC) Tobacco use disorder Status post total left knee replacement documented in this encounter Care Teams Pharmacy Associate Relationship Specialty Start Date End Date Jose Holden MD PCP - General Otolaryngology 12/14/17 [facility] [place] [address] documented as of this encounter
--- OUTSIDE RECORDS SUMMARY | 2022-07-06 15:00 | XMS_ITS | Encounter Summary ---
:1965 [facility] Address [address], [place] [address] Care Team Providers Name Role Phone Jose Holden MD Primary Care Provider [phone] Reason for Visit Auth/Cert Specialty Diagnoses / [...] Expiration Date Visits Requ ested Visits Authorized [id number] 1 1 Encounter Details Date Type Department Care Team Description 02/20/2018 [facility] Pete Gonzalez MD [address] [place] [address] [place] [address] [phone] (Wo rk) Social History Tobacco Use Types [...] Date/Time Associated Diagnosis Comme nts XR C-ARM 0-30 Routine 02/20/2018 2:05 PM Results for this MINUTES CDT procedure are i n the results section. documented in this encounter Results XR C-Arm 0-30 Minutes (02/20/2018 2:05 PM CDT) Anatomical Region Laterality Modality Other Specimen (Source) Anatomical Location Collection Method / Collectio n Time Received Time / Laterality Volume Narrative 02/20/2018 2:06 PM CDT Fluoroscopy provided by a radiology administrator. Exact fluoroscopy time is documented in end of exam information in EPIC Pete Gonzalez MD RAD GD documented in this encounter Visit Diagnoses Not on filedocumented in this encounter Care Teams Signalling And Communications Engineer Relationship Specialty Start Date End Date Jose Holden MD PCP - General Otolaryngology 12/14/[address] [place], [place] [address] [address] documented as of this encounter
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
--- OUTSIDE RECORDS SUMMARY | 2022-07-06 15:00 | XMS_ITS | Encounter Summary ---
:1965 [facility] Address [address] [place] [address] Care Team Providers Name Role Phone Jose Holden MD Primary Care Provider [phone] Encounter Details Date Type Department Care Team [...] on filedocumented in this encounter Care Teams Manager Technical Sales Relationship Specialty Start Date End Date Joes Holden MD PCP - General Otolaryngology 12/14/17 [address] [place] [address] documented as of this encounter
--- OUTSIDE RECORDS SUMMARY | 2022-07-06 15:00 | XMS_ITS | Encounter Summary ---
:1965 Author Organization [facility] Address [address] [place] [address] Care Team Providers Name Role Phone Jose Holden MD Primary Care Provider [phone] Reason for Visit Reason Comments Medication Questions FYI Encounter Details Date Type Department Care Team Description 03/01/2018 [facility]phone [facility] Pete Gonzalez MD Medication Questions; [facility] [address] [place] [address] FY I Neurosurgery/Ortho [address] [place] [address] [place] [address] [phone] (Wo rk) Social History Tobacco Use Types [...] Nursing Notes Chava Simon RN - 03/01/2018 2:36 PM CDT Sirisha Maher CNP informed and it was noted. Chava Simon RN 03/01/2018, 2:36 PM Michael Cruz - 03/01/2018 2:03 PM CDT Pharmacist Mandy SCHROEDER on Neurosurgery calling from pharmacy in regards to patients HYDROmorphone. She relays that patients insurance only allows 30 tabs and so the 20 other tabs will have to be forfeited. Please call Mandy back with any questions. Michael Cruz 03/01/2018, 2:11 PM documented in this encounter Plan of Treatment Not on filedocumented as of this encounter Visit Diagnoses Not on filedocumented in this encounter Care Teams Securities Lending Trader Relationship Specialty Start Date End Date Jose Holden MD PCP - General Otolaryngology 12/14/17 [facility] [address] documented as of this encounter
--- OUTSIDE RECORDS SUMMARY | 2022-07-06 15:00 | XMS_ITS | Encounter Summary ---
:1965 Author Organization [facility] Address [address], [place] [address] Care Team Providers Name Role Phone Jose Holden MD Primary Care Provider [phone] Reason for Visit Reason Comments QUESTIONS, GENERAL Encounter Details Date Type Department Care Team Description 03/01/2018 Telephone [facility] Pete Gonzalez MD QUESTIONS, GENERAL [facility] [address] [facility] Neurosurgery/Ortho [place], [place] [address] [address] [place] [address] [phone] Social History Tobacco Use Types Packs/Day Years [...] Nursing Notes Chava Simon RN - 03/01/2018 11:27 AM CDT Patient states she is having a muscle spasms near her shoulders blades. She states she has pain fromback of head into shoulders. Patient states she currently rates it as 10/10. Patient states she is not having any new weakness or numbness or tingling. Patient states incision is intact, no drainage, no redness, no swelling, and patient states she has not had any fevers. We went over red flag symptoms. no loss of control of bowel or bladder function. no saddle numbness. no new leg/foot weakness. Pt has been instructed to seek medical care in the ED if these symptoms were to occur. Patient instructedthat she will be sore after surgery and she is not having any red flag symptoms. She has not been using ice or tylenol which she was instructed to do. She was informed that if her pain becomes unbearable, she can present to the ER, but she does have an appointment with us on 03/07/2018. Patient states she will monitor symptoms for now and call with any changes. Chava Simon RN 03/01/2018, 11:37 AM Chantel Angela - 03/01/2018 11:12 AM CDT Angie called requesting to speak with nurse. She stated that she must have pulled a muscle or something towards her lower back because it is hurting while she is walking. Her medications are not working either. She also mentioned that she has not been doing any heavy lifting or she has not been doing anything she's not supposed to be doing. She wanted to know if she should go to the ED in [place]? Please review and advise. Chantel Angela 03/01/2018, 11:15 AM documented in this encounter Plan of Treatment Not on filedocumented as of this encounter Visit Diagnoses Not on filedocumented in this encounter Care Teams Branch Library Clerk Relationship Specialty Start Date End Date Jose Holden MD PCP - General Otolaryngology 12/14/17 [facility] [place] [address] documented as of this encounter
--- OUTSIDE RECORDS SUMMARY | 2022-07-06 15:00 | XMS_ITS | Encounter Summary ---
:1965 Author Organization [facility] Address [address] [address] Care Team Providers Name Role Phone Jose Holden MD Primary Care Provider [phone] Reason for Referral Procedure/Equipment (Routine) - Incomplete Specialty Diagnoses / Procedures Referred By Contact Refer red To Contact Diagnoses S/P cervical spinal fusion Sirisha Rankin, Procedures XR Cervical Spine AP/Lat Upright KALPANA SHER [address] [place] [address] Referral ID Status Reason Start Date Expiration Date Visits V isits Requested Authorized [id number] Incomplete 04/05/2018 07/05/2019 1 1 Reason for Visit Reason Comments POST-OP,EXAM Encounter Details Date Type Department Care Team Description 04/05/2018 Office Visit [facility] Sneha Maher, S/Camelia cervic al spinal [facility] RODRICK Newberry CNP fusion (Primary Dx) Neurosurgery/Ortho [address] Spine [place], [place] [address] [address] [place] [address] [phone] Social History Tobacco Use Types Packs/Day Years [...] Sign Reading Time Taken Comments Blood Pressure 112/84 04/05/2018 1:02 PM CDT Pulse 70 04/05/2018 1:02 PM CDT Temperature 36.7 ??C (98 ??F) 04/05/2018 1:02 PM CDT Respiratory Rate 18 04/05/2018 1:02 PM CDT Oxygen Saturation - - Inhaled Oxygen Concentration - - Weight - - Height - - Body Mass Index - - documented in this encounter Patient Instructions Patient InstructionsChava Simon RN - 04/05/2018 1:00 PM CDT [facility] Patient Instructions You received letter written concerning restrictions and rehabilitation. Tests: You will be scheduled for cervical x-rays prior to your next appointment. Follow up: with Dr. Pete Gonzalez in [...] your understanding. Please call the Neurosurgery Center [phone] with any further questions or concerns or if your symptoms worsen. Thank you for coming to see us today. We are your partner. documented in this encounter Progress Notes Sirisha Rankin, CASTING TECHNICIAN, PETROLEUM REFINERY WORKER - 04/05/2018 1:00 PM CDT POSTOPERATIVE DIAGNOSES: 1. Status post C3-T1 anterior-posterior instrumented fusion. 2. Dysphagia. 3. Pseudoarthrosis. 4. Hardware failure C3-T1. 5. Cervical thoracic kyphosis. 6. Cervical radiculopathy. ?? 02/20/2018 PROCEDURES: 1. Open anterior inspection of fusion, [...] of cross-link T2-T3. 8. Autograft and allograft. Chief Complaint: posterior neck pain Subjective: Angie Mosquera is a 52 y.o. pt who presents today for a follow up appointment. She is now 6 weeks out from surgery. She reports that she had a fall in her home recently and had moderate neck pain following the incident. She was seen at a local hospital and underwent a CT of her cervical spine. Per her report it was negative for fracture or hardware complication. She reports that she has posterior neck discomfort and has had daily HAs. She continues to take oxycodone, zanaflex and cannabis for her pain. This is managed by her PCP. She feels that the cool weather, fibromyalgia and her recent fall has contributed to her current symptoms. She also complains of intermittent pain that shoots down her arms and into her hands. She also complains of intermittent paraesthesias in her bilateral hands, mainly in her middle 3 fingers. She complains of left arm and hand weakness, she states that she has hadthis issue following her recent left shoulder surgery. She would like to resume PT to strengthen herarm/hand. She reports that she is going through a divorce and plans to move to [place] in the next several months. She would like to have an appointment with Dr. Gonzalez prior to her move out of [facility]. She denies any incisional concerns. She has had some sutures poke through the incision that she has pulled out without any further issue. Objective: BP 112/84 Pulse 70 Temp 98 ??F (36.7 ??C) (Tympanic) Resp 18 General: alert, oriented to person, place, time and pleasant to converse Head: atraumatic Eyes: no scleral injection, EOMI grossly intact Chest/Pulmonary: chest rise equal bilaterally, no tachypnea, no retractions and no cyanosis Gait: normal gait without problems Manual Motor Testing Upper Extremity: C5 - Shoulder abduction R:5/5 L: 4+/5 flexion of elbow(bicep) R:5/5 L: 5/5 C6 - Wrist extension R:5/5 L: 5/5 C7 - Extension of elbow(tricep) R:5/5 L: 5/5 C8 - Finger flexors(jet piercer operator) R:5/5 L: 5/5 T1 - Finger abduction/adduction R: 5/5 L: 5/5 Manual Motor Testing Lower Extremity: Gross motor movement of BLE DTR: not assessed Imaging: Upright cervical xrays personally reviewed. Stable cervical alignment and hardware. INDICATION: Spinal stability assessment COMPARISON: Cervical spine plain films 02/21/2018 FINDINGS: C2-T3, skip C7, posterior instrumented fusion. Solid C3-C6 interbody fusion. Maturing C6-C7 and C7-T1 interbody fusions. No instrumentation loosening or failure. Anatomic alignment. Assessment: 52 y.o. female 6 weeks out from cervical fusion C2-T3 doing well. Stable postop exam. Plan: Advised no lifting greater than 10-15#-letter given Avoid high impact type activities OK to resume left shoulder PT for arthroplasty Follow up with 6 weeks with repeat cervical upright xrays Pt is to f/u 6 weeks with cervical upright Ap/Lat xrays or sooner if symptoms change or worsen or questions arise. Patient is in agreement with this plan. Questions and concerns were addressed. Patientwas instructed to call our office sooner with any change or increase in symptoms. Total time spent was 25 minutes of which more than 50% where used in counseling. Sirisha Maher APRN, KALPANA documented in this encounter Plan of Treatment Not on filedocumented as of this encounter Results XR Cervical Spine AP/Lat Upright (06/14/2018 1:41 PM CDT) Anatomical Region Laterality Modality Spine, C-Spine, Neck Computed Radiograph y Specimen (Source) Anatomical Collection Method Collection Time Re ceived Time Location / / Volume Laterality 06/14/2018 1:41 PM CDT Narrative 06/14/2018 5:54 PM CDT [facility] XR CERVICAL SPINE AP/LAT UPRIGHT 06/14/2018 1:41 [...] note might be different from the original. [facility] XR CERVICAL SPINE AP/LAT UPRIGHT 06/14/2018 1:41 [...] soft tissue swelling. Remainder unchanged. Sirisha Maher CASTING TECHNICIAN, PETROLEUM REFINERY WORKER RAD GD documented in this encounter Visit Diagnoses Diagnosis S/P cervical spinal fusion - Primary Arthrodesis status S/P cervical spinal fusion Arthrodesis status documented in this encounter Care Teams Network And Threat Support Specialist Relationship Specialty Start Date End Date Jose Holden MD PCP - General Otolaryngology 12/14/17 [place] [address] documented as of this encounter
--- OUTSIDE RECORDS SUMMARY | 2022-07-06 15:00 | XMS_ITS | Encounter Summary ---
:1965 [facility] Address [address], [place] [address] Care Team Providers Name Role Phone Jose Holden MD Primary Care Provider [phone] Reason for Visit Auth/Cert Specialty Diagnoses / [...] Expiration Date Visits Requ ested Visits Authorized [id number] 1 1 Encounter Details Date Type Department Care Team Description 02/21/2018 [facility] Pete Gonzalez MD [address] [place] [address] [place] [address] [phone] (Wo rk) Social History Tobacco Use Types [...] Diagnosis Comme nts XR CERVICAL SPINE Routine 02/21/2018 9:50 AM Resu lts for this AP/LAT UPRIGHT CDT procedure are in the results section. documented in this encounter Results XR Cervical Spine AP/Lat Upright (02/21/2018 9:50 [...] complication. A surgical drain is present. Lois Pham PA-C RAD GD documented in this encounter Visit Diagnoses Not on filedocumented in this encounter Care Teams Mechanical Systems Control Engineer Relationship Specialty Start Date End Date Jose Holden MD PCP - General Otolaryngology 12/14/[address] [place] [id number] documented as of this encounter
--- OUTSIDE RECORDS SUMMARY | 2022-07-06 15:01 | XMS_ITS | Encounter Summary ---
:1965 Author Organization [facility] Address [address] [place] [address] Care Team Providers Name Role Phone Jose Holden MD Primary Care Provider [phone] Encounter Details Date Type Department Care Team Description 02/13/2018 Orders Only External to [facility] External, [place] [address] Social History Tobacco Use Types Packs/Day Years [...] Priority Date/Time Associated Diagnosis Comme nts ECG TRACING 02/13/2018 12:00 AM Results for this CDT procedure are i n the results section . documented in this encounter Results ECG TRACING (02/13/2018 12:00 AM CDT) Specimen (Source) Anatomical Location Collection Method / Collectio n Time Received Time / Laterality Volume 02/13/2018 Narrative This result has an attachment that is no t available. Provider External EKG documented in this encounter Visit Diagnoses Not on filedocumented in this encounter Care Teams Storm Window Installer Relationship Specialty Start Date End Date Jose Holden MD PCP - General Otolaryngology 12/14/17 [place] [address] documented as of this encounter
--- OUTSIDE RECORDS SUMMARY | 2022-07-06 15:01 | XMS_ITS | Encounter Summary ---
:1965 [facility] Address [address], [place] [address] Care Team Providers Name Role Phone Jose Holden MD Primary Care Provider [phone] Reason for Visit Therapies (Routine) - Closed Specialty Diagnoses / Procedures Referred By Contact Refer red To Contact Diagnoses Pseudarthrosis after fusion or arthrodesis Screening procedure Pete Gonzalez MD [address] [place] [address] Referral ID Status Reason Start Date Expiration Date Visits Requ ested Visits Authorized [id number] Closed 11/29/2017 01/28/2018 1 1 Encounter Details Date Type Department Care Team Description 12/26/2017 Office Visit Pete Orona MD [address] [place] [address] Pharyngeal dysphagia [facility] Kaykay Wyman RESIDENTIAL AIDE [address] [place], [place] [id number] (Primary Dx) Speech Therapy [address] [place] [address]. [id number] [id number] Social History Tobacco Use Types Packs/Day Years Used Date Smoking Tobacco: Every Day Cigarettes 0.5 Smokeless Tobacco: Never Alcohol Use Standard Drinks/Week Comments No 0 (1 standard drink = 0.6 oz pure alcoho l) Sex Assigned at Date Recorded Not on file documented as of this encounter Patient Instructions Patient InstructionsKaykay Wyman SLP - 12/26/2017 12:30 PM ACCOUNTING ADVISORY SERVICES MANAGER You had a swallow test today. I am recommending you to thicken your water and other thin liquids. We saw that you have penetration on thin liquids where the liquids begin to head toward your airway when you swallow. You don't aspirate but you are at higher risk for this. We saw that the anterior hardware is placed just near the opening of your esophagus and food, especially dry foods, do catch in this area momentarily. I believe if you pursued more surgery that you should be prepared for worse swallow function the first 1-2 months as you heal but if they remove this hardware, you may have improved swallowing with reduced sensation of food catching. Kaykay Monroy MA CCC/RESIDENTIAL AIDE Speech-Language Pathologist M-F Office: [phone] UNTING ADVISORY SERVICES MANAGER documented in this encounter Progress Notes Kaykay Wyman, RESIDENTIAL AIDE - 12/26/2017 12:30 PM CST SPEECH LANGUAGE PATHOLOGY MODIFIED BARIUM SWALLOW INITIAL EVALUATION ASSESSMENT Patient is referred for dysphagia evaluation as part of surgical consultation related to past ACDF 1year ago in [place] with consideration of revision ACDF surgery in the future, referred by Dr. Pete Gonzalez from neurosurgery. Angie Mosquera has a mildly impaired swallow. Swallow rehab potential is good. Oral swallow is not impaired. Pharyngeal swallow is mildly impaired. During this assessment, Maya Mosquera demonstrated penetration on thin liquids. Able to eliminate with use of nectar thick liquids today and with report of improved sensation when drinking same. Pt demonstrates slowed transit of the solid/dry cracker trial at approximately C6 where the anterior hardware is seen, just after the food has entered her esophagus. The hardware appears to contribute to her symptoms of food sticking, especially on textures that are core drier (meats, breads, etc). I would anticipate that patient will have an acute phase of increased dysphagia if she pursues the next surgery but if anterior hardware is able to be removed this may ultimately help reduce her symptoms of feeling that food is sticking. We did discuss that risk for dysphonia/dysphagia increase with the complexity or increased cervical levels involved in each surgery. Skilled Speech Language Pathology is not necessary at this time as pt demonstrated understanding ofrecommendations reviewed today. Recommendations: ?? Showed patient how to thicken liquids with THICKEN UP clear. We discussed rationale for doing this (reduces penetration and risk for aspiration). Pt is currently avoiding water consumption because she says it makes her nauseous, which she says is a new problem since her ACDF, not related to gastricbypass. She did indicate an improved sensation when trying the thickened water today. ?? Eat foods that have added moisture--add sauce, gravy, condiments, etc and cook meats and vegetables to a softer texture. ?? Wash foods down with something to drink Images of this videofluoroscopic swallow study are now available to view in the ???imaging?? tab ofthe patient???s medical record. PLAN No goals established as no further intervention from RESIDENTIAL AIDE service is warranted at this time. VISIT INFORMATION Other Insurance Info: Medicare Today's Visit Number: 1 Progress Note Needed at Visit Number: 10 Certification period 12/26/2017 to 02/23/2018 02/22/2018 G Codes and Severity Modifiers: G8996 Swallow current status, CI At least 1%, but less than 20% impaired, limited or restricted, G8997 Swallow goal status, CI At least 1%, but less than 20% impaired, limited or restricted and G8998 Swallow D/C status, CI At least 1%, but less than 20% impaired, limited or restricted Order date: 11/29/2016, onset report approx 12 months ago 12/26/2016 per pt. Medical Diagnosis: ICD-10-CM 1. Pharyngeal dysphagia R13.13 SUBJECTIVE Chief Complaint: Patient complains of food sticking with need to regurgitate or vomit at times when food will not go down. Pt says this is different than other epigastric problems she had following gastric bypass. Present Diet: a regular diet without texture or consistency restrictions, with thin liquids. Dentition: adequate for chewing. Current Mental Status: alert and cooperative. OBJECTIVE Oral/Motor Exam Tongue Elevation/depression:within functional limits Lateralization: within functional limits Coordination: within functional limits Protrusion: within functional limits Lips Seal strength: within functional limits Retraction: within functional limits Facial symmetry: within functional limits Soft palate elevation: within functional limits Cough/throat clearing: within functional limits Vocal quality: some harsh, raspy quality. Speech intelligibility: within functional limits Gag reflex: within functional limits Video Fluoroscopy Position: lateral Consistency Trials: pureed, semi-soft, solid and barium tablet Liquid Trials: thin and nectar-thick, single and consecutive swallows Oral stage was characterized by normal behavior. Pharyngeal Stage Aspiration was not observed. Laryngeal penetration was observed with thin trials. On the Penetration- Aspiration Scale (Vazquez, Osiris, Nataly, Liv, and Henry, 1996), this swallowing behavior ranks as 2 with a range of 1 (no airway compromise) to 8 (gross aspiration, visible residual, and no cough or attempt to clear). Pt can eliminate penetration when provided with nectar thick liquids. Pharyngeal swallow delay was not observed. Decreased pharyngeal contraction was not observed. Vallecular residue was not observed. Pyriform residue was not observed. Decreased laryngeal elevation was not observed. Decreased laryngeal adduction was not observed. Cricopharyngeal dysfunction was not observed. Anterior hardware observed at C6, with very brief stasis of the cracker trial at this junction of the hardware. Although subtle, does provide some indication TODAY'S SESSION Initial Evaluation Completed Treatment Today: Reviewed above recommendations Patient's Response to Therapy: Pt fully engaged in all session activities Education: Provided patient verbal, visual and written education, training, and/or instruction in the followingareas: dysphagia and recommended diet consistency Patient and/or family response to education: Patient and/or family demonstrated comprehension of provided education Home Program: none Total Treatment Time: 45 minutes Kaykay Monroy CCC-RESIDENTIAL AIDE 12/26/2017 documented in this encounter Plan of Treatment Scheduled Referrals Name Type Priority Associated Diagnoses Order S chedule Speech Therapy Referral Routine Pseudarthrosis after fusio n or Ordered: 11/29/2017 arthrodesis Screening procedure documented as of this encounter Visit Diagnoses Diagnosis Pharyngeal dysphagia - Primary Dysphagia, pharyngeal phase documented in this encounter Care Teams Station Detective Relationship Specialty Start Date End Date Jose Holden MD PCP - General Otolaryngology 12/14/17 [place] [address] documented as of this encounter
--- OUTSIDE RECORDS SUMMARY | 2022-07-06 15:01 | XMS_ITS | Encounter Summary ---
:1965 Author [facility] Address [address] [address] Care Team Providers Name Role Phone Jose Holden MD Primary Care Provider [phone] Encounter Details Date Type Department Care Team Description 02/13/2018 Orders Only External to Jose Holden MD [address] [place], [place] [address] (Wo rk) Social History Tobacco Use Types [...] Name Priority Date/Time Associated Diagnosis Comme nts SCANNED LAB 02/13/2018 12:00 AM Results for this CDT procedure are i n the results section . documented in this encounter Results SCANNED LAB (02/13/2018 12:00 AM CDT) Specimen (Source) Anatomical Location Collection Method / Collectio n Time Received Time / Laterality Volume 02/13/2018 Narrative This result has an attachment that is no t available. Jose Holden MD LAB_1 documented in this encounter Visit Diagnoses Not on filedocumented in this encounter Care Teams Behavioral Analyst Relationship Specialty Start Date End Date Jose Holden MD PCP - General Otolaryngology 12/14/17 [address] [place] [address] documented as of this encounter
--- OUTSIDE RECORDS SUMMARY | 2022-07-06 15:01 | XMS_ITS | Encounter Summary ---
:1965 Author Organization [facility] Address [address] [address] Care Team Providers Name Role Phone Jose Holden MD Primary Care Provider [phone] Encounter Details Date Type Department Care Team Description 12/02/2017 Orders Only External to Pete Gonzalez MD [address] [place], [place] [address] (Wo rk) Social History Tobacco Use Types [...] Date/Time Associated Diagnosis Comme nts MRI SPINE--SCAN 12/02/2017 12:00 AM Resul ts for this ACCOUNTING INSTRUCTOR procedure are i n the results section. documented in this encounter Results MRI SPINE--SCAN (12/02/2017 12:00 AM ACCOUNTING INSTRUCTOR) Anatomical Region Laterality Modality Other Specimen (Source) Anatomical Location Collection Method / Collectio n Time Received Time / Laterality Volume 12/02/2017 Narrative This result has an attachment that is no t available. Pete Gonzalez MD DUMMY/OTHER/AR documented in this encounter Visit Diagnoses Not on filedocumented in this encounter Care Teams Manager Bar Relationship Specialty Start Date End Date Jose Holden MD PCP - General Otolaryngology 12/14/17 [address] [place], [place] [address] documented as of this encounter
--- OUTSIDE RECORDS SUMMARY | 2022-07-06 15:01 | XMS_ITS | Encounter Summary ---
:1965 Author Organization [facility] Address [address] [address] Care Team Providers Name Role Phone Jose Holden MD Primary Care Provider [phone] Encounter Details Date Type Department Care Team Description 12/02/2017 Orders Only External to Pete Gonzalez MD [address] [place], [place] [address] (Wo rk) Social History Tobacco Use Types [...] 12/02/2017 12:00 AM Resul ts for this EDITING INTERN procedure are i n the results section. documented in this encounter Results MRI SPINE--SCAN (12/02/2017 12:00 AM EDITING INTERN) Anatomical Region Laterality Modality Other Specimen (Source) Anatomical Location Collection Method / Collectio n Time Received Time / Laterality Volume 12/02/2017 Narrative This result has an attachment that is no t available. Pete Gonzalez MD DUMMY/OTHER/AR documented in this encounter Visit Diagnoses Not on filedocumented in this encounter Care Teams Park Interpreter Relationship Specialty Start Date End Date Jose Holden MD PCP - General Otolaryngology 12/14/17 [address] [place], [place] [address] documented as of this encounter
--- OUTSIDE RECORDS SUMMARY | 2022-07-06 15:01 | XMS_ITS | Encounter Summary ---
:1965 Author Organization [facility] include 234 beds at the [facility] Address [address] [place] [address] Care Team Providers Name Role Phone Unassigned, Provider Primary Care Provider Unavailable Encounter Details Date Type Department Care Team Description 01/17/2006 [facility] Curtis Antoine Op Report-Archive [address]Britton García [place] [address] [place] [phone] [place] [address] Social History Tobacco Use Types Packs/Day Years Used Date Smoking Tobacco: Never Assessed Sex Assigned at Date Recorded Not on file documented as of this encounter Plan of Treatment Not on filedocumented as of this encounter Visit Diagnoses Not on filedocumented in this encounter Care Teams Chemist Intern Relationship Specialty Start Date End Date Unassigned, Provider PCP - General 08/05/03 12/13/17 [address] [place] [address] documented as of this encounter
--- OUTSIDE RECORDS SUMMARY | 2022-07-06 15:01 | XMS_ITS | Encounter Summary ---
:1965 [facility] Address [address] [place] [address] Care Team Providers Name Role Phone Jose Holden MD Primary Care Provider [phone] Encounter Details Date Type Department Care Team Description 02/13/2018 Orders Only External to [facility] No Primary/Referring, [...] is no t available. Phy No Primary/Referring EKG documented in this encounter Visit Diagnoses Not on filedocumented in this encounter Care Teams Gas Refrigerator Servicer Relationship Specialty Start Date End Date Jose Holden MD PCP - General Otolaryngology 12/14/17 [place] [address] documented as of this encounter
--- OUTSIDE RECORDS SUMMARY | 2022-07-06 15:01 | XMS_ITS | Encounter Summary ---
:1965 Author Organization [facility] Address [address] [place] [address] Care Team Providers Name Role Phone Unassigned, Provider Primary Care Provider Unavailable Encounter Details Date Type Department Care Team Description 10/28/2005 [facility] Curtis Antoine Op Report-Archive [address]Britton García [place] [address] [facility] [phone] [place] [address] Social History Tobacco Use Types Packs/Day Years Used Date Smoking Tobacco: Never Assessed Sex Assigned at Date Recorded Not on file documented as of this encounter Plan of Treatment Not on filedocumented as of this encounter Visit Diagnoses Not on filedocumented in this encounter Care Teams Product Design Manager Relationship Specialty Start Date End Date Unassigned, Provider PCP - General 08/05/03 12/13/17 [address] [place] [address] documented as of this encounter
--- OUTSIDE RECORDS SUMMARY | 2022-07-06 15:01 | XMS_ITS | Encounter Summary ---
:1965 Author Organization [facility] Address [address] [place] [address] Care Team Providers Name Role Phone Jose Holden MD Primary Care Provider [phone] Encounter Details Date Type Department Care Team Description 02/07/2018 Prep for Surgery [facility] Sne[facility] Sirisha L, APR N, ADJUNCT INSTRUCTOR IN ECONOMICS Neurosurgery/Ortho [place] [address] [place] [address] [place] [address] [phone] Social History Tobacco Use Types Packs/Day Years Used Date Smoking Tobacco: Every Day Cigarettes 0.5 30 Smokeless Tobacco: Never Comments: 30 year smoker on and off Alcohol Use Standard Drinks/Week Comments No 0 (1 standard drink = 0.6 oz pure alcoho l) Sex Assigned at Date Recorded Not on file documented as of this encounter Plan of Treatment Not on filedocumented as of this encounter Visit Diagnoses Not on filedocumented in this encounter Care Teams Whiskey Filterer Relationship Specialty Start Date End Date Jose Holden MD PCP - General Otolaryngology 12/14/[address] [place] [address] documented as of this encounter
--- OUTSIDE RECORDS SUMMARY | 2022-07-06 15:01 | XMS_ITS | Encounter Summary ---
:1965 Author Organization [facility] Address [address], [place] [address] Care Team Providers Name Role Phone Jose Holden MD Primary Care Provider [phone] Reason for Visit Reason Comments QUESTIONS, GENERAL Encounter Details Date Type Department Care Team Description 01/19/2018 Telephone [facility] Pete Gonzalez MD QUESTIONS, GENERAL [facility] [address] [facility] Neurosurgery/Ortho [place], [place] [address] [place] [address] [phone] Social History Tobacco Use Types Packs/Day Years Used Date Smoking Tobacco: Every Day Cigarettes 0.5 30 Smokeless Tobacco: Never Comments: 30 year smoker on and off Alcohol Use Standard Drinks/Week Comments No 0 (1 standard drink = 0.6 oz pure alcoho l) Sex Assigned at Date Recorded Not on file documented as of this encounter Nursing Notes Gi De La Vega - 01/20/2018 11:07 AM CST CD of MRI was received via mail from [facility]. CD given to RN ES PLAYER Chava Simon RN - 01/19/2018 12:00 PM CST Patient states she will bring the MRI CD hopefully tomorrow 01/20/2018. Chava Simon RN 01/19/2018, 12:01 PM ES PLAYER Gi De La Vega - 01/19/2018 11:47 AM CST Patient calling to speak to RN. Would like to speak to him regarding an MRI CD? Please call her at [phone]. ES PLAYER documented in this encounter Plan of Treatment Not on filedocumented as of this encounter Visit Diagnoses Not on filedocumented in this encounter Care Teams Special Assets Officer Relationship Specialty Start Date End Date Jose Holden MD PCP - General Otolaryngology 12/14/[address] [facility] [place] [address] documented as of this encounter
--- OUTSIDE RECORDS SUMMARY | 2022-07-06 15:01 | XMS_ITS | Encounter Summary ---
:1965 Author Organization [facility] Address [address] [place] [address] Care Team Providers Name Role Phone Unassigned, Provider Primary Care Provider Unavailable Encounter Details Date Type Department Care Team Description 11/04/2005 [facility] Curtis Antoine Op Report-Archive [address] StreetBritton García [place] [address] [facility] [phone] [place] [address] Social History Tobacco Use Types Packs/Day Years Used Date Smoking Tobacco: Never Assessed Sex Assigned at Date Recorded Not on file documented as of this encounter Plan of Treatment Not on filedocumented as of this encounter Visit Diagnoses Not on filedocumented in this encounter Care Teams Elementary Secretary Relationship Specialty Start Date End Date Unassigned, Provider PCP - General 08/05/03 12/13/17 [address] [place] [address] documented as of this encounter
--- OUTSIDE RECORDS SUMMARY | 2022-07-06 15:01 | XMS_ITS | Encounter Summary ---
:1965 Author Organization [facility] Address [address] [place] [address] Care Team Providers Name Role Phone Unassigned, Provider Primary Care Provider Unavailable Encounter Details Date Type Department Care Team Description 12/13/2006 [facility] Curtis Antoine Op Report-Archive [address] StreetBritton García [place] [address] [address] [facility] [phone] [place] [address] Social History Tobacco Use Types Packs/Day Years Used Date Smoking Tobacco: Never Assessed Sex Assigned at Date Recorded Not on file documented as of this encounter Plan of Treatment Not on filedocumented as of this encounter Visit Diagnoses Not on filedocumented in this encounter Care Teams Program Manager Relationship Specialty Start Date End Date Unassigned, Provider PCP - General 08/05/03 12/13/17 [address] [place] [address] documented as of this encounter
--- OUTSIDE RECORDS SUMMARY | 2022-07-06 15:01 | XMS_ITS | Encounter Summary ---
:1965 [facility] Address [address] [place] [address] Care Team Providers Name Role Phone Jose Holden MD Primary Care Provider [phone] Encounter Details Date Type Department Care Team Description 01/17/2018 Telephone [facility] Chava Simon RN Center Neurosurgery/ Ortho Sp[facility] [address] [place] [address] Social History Tobacco Use Types Packs/Day Years Used Date Smoking Tobacco: Every Day Cigarettes 0.5 30 Smokeless Tobacco: Never Comments: 30 year smoker on and off Alcohol Use Standard Drinks/Week Comments No 0 (1 standard drink = 0.6 oz pure alcoho l) Sex Assigned at Date Recorded Not on file documented as of this encounter Nursing Notes Chava Simon RN - 01/17/2018 1:04 PM CST Called patient and informed her that she will need to bring in MRI CD. Patient stated understanding and will bring them in. Chava Simon RN 01/17/2018, 1:26 PM UNTS RECEIVABLE ADMINISTRATOR documented in this encounter Plan of Treatment Not on filedocumented as of this encounter Visit Diagnoses Not on filedocumented in this encounter Care Teams Liner Installer Relationship Specialty Start Date End Date Jose Holden MD PCP - General Otolaryngology 12/14/17 [address] [place] [address] documented as of this encounter
--- OUTSIDE RECORDS SUMMARY | 2022-07-06 15:01 | XMS_ITS | Encounter Summary ---
:1965 Author Organization [facility] Address [address] [place] [address] Care Team Providers Name Role Phone Jose Holden MD Primary Care Provider [phone] Reason for Visit Reason Comments CONSULT POPC-dos 02-20 w/Dr Gonzalez Encounter Details Date Type Department Care Team Description 02/13/2018 Office Visit Stew Mcghee [facility] Raul Stover MD cervical region Management [address] without myelopathy or [address] [place], [place] radiculopathy ([place] [address] Dx) [phone] Social History Tobacco Use Types Packs/Day Years [...] Sign Reading Time Taken Comments Blood Pressure 109/80 02/13/2018 10:53 AM CDT Pulse 75 02/13/2018 10:53 AM CDT Temperature - - Respiratory Rate - - Oxygen Saturation - - Inhaled Oxygen Concentration - - Weight 70.8 kg (156 lb) 02/13/2018 10:53 AM CDT Height 152.4 cm (5') 02/13/2018 10:53 AM CDT Body Mass Index 30.47 02/13/2018 10:53 AM CDT documented in this encounter Patient Instructions Patient InstructionsStew Covarrubias MD - 02/13/2018 10:30 AM CDT We planned for pain management for you surgery. I think you have a great surgical team and should beconfident your surgery will go well. We will be using a multimodal approach to help manage your pain. This means both medications that work on different aspects of pain as well as non-medication treatment options. Pain following surgery is normal. We discussed that even with the best pain regimen there will be pain that you will have to work through. As discussed I will not be prescribing opioid pain medications before your surgery or after you leave the hospital following your surgery, but will be giving guidelines to your surgical team. Myself or someone from my team will see you in the hospital after your surgery. We discussed opioid medications today, these are some main points to know about: TAPER: The plan is to stop taking opioids as you heal from surgery, even if you are still having some pain. This is done in a gradual fashion. RISK: There are a number of side effects and complications that can happen with opioids, the most concerning is there is a risk of overdose and dying with these medications. The most common cause of this is taking the medications with: alcohol, a class of medications called benzodiazepines, with illegal drugs, or escalating the dose of opioids. Please take the medication as prescribed and do not use with alcohol or illegal drugs. STORAGE: These medications need to be stored safely preferably in a lock box. DISPOSAL: If you are no longer using your opioid medications (or if you have old opioid medications from previous medical issues) it is important to dispose of them properly. Depending on where you live there are drop sites you can take them to. Frequently law enforcement offices and libraries have take back sites. Please check with one near you. If you are not able to bring them to a take back site you can place them in coffee grounds, or cat litter in a ziplock bag and place them in the trash. Learning About Opioids Introduction Opioid pain relievers are medicines used to relieve acute pain when someone has a severe injury or has surgery. They are also used to relieve moderate to severe pain associated with cancer or near end of life. They don't cure a health problem, but they help you manage the pain. Opioids are powerful medicines. They relieve pain by changing the way your body feels pain and the way you feel about pain. They don't work as well over time, so higher and higher doses are needed to relieve pain. This can lead to dependency or addiction. Even though they are effective for pain today,they can make the pain worse over time. Examples Here are some medicines that are opioids: ??? Hydrocodone ([place], Vicodin, Lortab) ??? Oxycodone (OxyContin, Percocet) ??? Hydromorphone (Dilaudid) ??? Fentanyl (Duragesic) ??? Methadone ??? Buprenorphine (Suboxone, Subutex) Safety tips Taking too much of these medicines (an overdose) can cause . To avoid an overdose: ??? Take your medicines exactly as prescribed. Contact my care team if you think you are having a problem with your medicine. ??? Do not break, crush, or chew a pill. Do not cut or tear a patch. ??? Do not drink alcohol or take illegal drugs while on opioids. ??? Do not combine with other sedating medications such as benzodiazepines (valium, ativan, xanax are some examples). ??? Do not drive or operate machinery until the medicine effects are gone and you can think clearly. ??? Keep your medicine in a safe and secure place away from children and pets, preferably a locked location. ??? Be sure to contact my care team if you miss a dose of your medicine and aren't sure what to do. Do not double your dose. ??? Check with my care team or a pharmacist before you use any other medicines, including zufm-ufj-gfjbfso medicines. Make sure my care team knows all of the medicines, vitamins, herbal products and supplements you take. Taking some medicines together can cause problems. ??? If someone else helps you with your medications, make sure they also understand the risks of this medication and how it should be used, stored and disposed of. Possible side effects Common side effects of these medicines include: ??? Constipation ??? Feeling dizzy or lightheaded or feeling faint ??? Feeling sleepy ??? Nausea or vomiting ??? Decreased sexual function ??? Tolerance (needing more medicine over time to relieve pain) ??? Addiction (use of the medication in a way that is not prescribed, or use causing harm) ??? Pain hypersensitivity (having increased pain over time due to changes in the body's pain receptors) ??? Respiratory depression (when breathing is slow or shallow and the lungs can't get enough oxygen to the tissues) You may have other side effects or reactions not listed here. Check the information that comes with your medicine. What to know about taking this medicine ??? Opioids cause constipation. You should take a laxative while on opioids to avoid constipation. Some laxatives are better than others for opioid induced constipation, so talk with your nurse or pharmacist about selecting the appropriate one. ??? When you take opioids regularly, your body gets used to them. This is called dependency. If you are dependent on an opioid, you may have withdrawal symptoms when you stop taking it. These include nausea, sweating, chills, diarrhea, shaking and pain. You can avoid these symptoms if you gradually stop taking the medicine over a set period of time, as prescribed. ??? You have a chance of addiction even if you take opioids as prescribed. Your risk of addiction isgreater if you have a history of substance abuse. ??? Some opiates have acetaminophen in them. Many other medicines include acetaminophen. Do not take2 or more medicines with acetaminophen in them unless instructed to. Taking too much acetaminophen can be harmful. ??? If you have extra medicines you are no longer taking, please dispose of them safely 2 weeks after you have stopped taking them. If you have questions about how to do this, talk to my care team or apharmacist. You can also visit [employer] or [employer] and search medicine disposalto learn about drug disposal. You may also call the Drug Enforcement Administration ([place]) Office of Diversion Control's Registration Call Center at to find an authorized vending machine collector in your community. ??? If your dose is high enough, your doctor may prescribe a medication called naloxone, which is used to reverse an opioid overdose. The higher your dose is, the greater chance of an overdose, even ifyou are taking the medication appropriately. The risk also increases if you are taking benzodiazepines in addition to opioids. If you believe you, or someone you know, is at risk of an overdose, ask your doctor to prescribe naloxone. When should you call for help? Call 911 anytime you think you may need emergency care. For example, call if: ??? You have trouble breathing ??? You have swelling of your face, lips, tongue or throat ??? You have hives ??? You have signs of an overdose. These include: o Cold, clammy skin o Confusion o Severe nervousness or restlessness o Severe dizziness, drowsiness or weakness o Slow breathing o Seizures Current as of: April 2016 Content Version: 10.9 Custom: HP/PN 6-16 ?? [id number] [employer], [facility]. Stew Covarrubias MD documented in this encounter Progress Notes Stew Covarrubias MD - 02/13/2018 10:30 AM CDT Images from the original note were not included. I had the pleasure of meeting Ms. Angie Mosquera on 02/13/2018 in the outpatient pain clinic in consult for Dr. Earlene siddiqi. provider found with regards to her Postoperative pain planning. Subjective: Per chart review: This is a 52-year-old patient who has had multiple neck surgeries both anterior and posterior. The patient had complications of dysphagia as well as postoperative kyphosis. 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 She has had a swallow study where the patient was told that the anterior cervical plate is causing her dysphagia. She has adjacent level degeneration and we have planned for an anterior plate removal as well as interbody cage at the infra adjacent level in addition to posterior revision from C2 down to potentially T4 for further caudal based onMRI evaluation of her infra adjacent disks. Once I'm able to review and assess her MRI we will plan on proceeding with surgery. 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 ?? Pre-operative pain visit checklist Type of Surgery and Date of Surgery 02/20/2018 C2-T[address]. [address]. Gonzalez. Current non-opioid pain medications Tylenol as needed Lamictal-bipolar Latuda-bipolar lyrica-150mg morning 450mg at night Mehtocarbomal-causes sleep walking-rarely Valium-5mg at night Medical Cannabis Current opioid medications, including type, and actual dosing. Oxycodone 5mg 4-5 times per day. Current opioid prescriber Rosetta Martin-LEDY Jerry History of opioid abuse or misuse? Denies. Active substance abuse issues? Very rare ETOH. Denies any other drug use, no history of drug use. History of mental health issues? How well controlled? -Bipolar disorder-this has been very stable for a number of years. -Some panic attacks-once a week-stress related. Pertinent Comorbidities (JUDY/COPD/CKD/Liver) Fibromyalgia, Gastric Bypass, PTSD Current treatment for opioid dependence (Bupenorphine/naloxone or methadone) none Pertinent Allergies or contraindications Gabapentin, NSAIDS(gastric bypass), nortriptyline, morphine-headache. Previous surgical experiences A lot of 'bad' surgeries in [place] Past Medical History: Diagnosis Date ??? Acne ??? Allergy ??? Anxiety disorder (HRC) ??? Arthritis ??? Asthma (HRC) ??? Bipolar 1 disorder (HRC) ??? COPD (chronic obstructive pulmonary disease) (HRC) ??? Depression (HRC) ??? Ear infection ??? Infection of the inner ear, left ? ? Nausea & vomiting ??? Sinusitis No past surgical history on file. 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 Adhesive Other, [...] Rash ??? Cephalosporins Rash ??? Other Rash Family History: family history includes Cancer, Other in her maternal grandmother and paternal grandmother; Neurofibromatosis in her sister; Stroke in her maternal grandfather; Thyroid Disorder in her mother. Social history: Lives with her son ROS: Complete 14 point ROS completed pertinent positives as in the HPI Objective: Blood pressure 109/80, pulse 75, height 5' (1.524 m), weight 156 lb (70.8 kg). General: looks stated age Mental status: displays appropriate affect Head: normocephalic Eyes: conjunctivae, lids, pupils, and irises are within normal limits Cardiovascular: normal heart rate Respiratory: normal respiratory efforts Assessment: 1. Postoperative pain planning for: 02/20/2018 C2-T3 anterior fusion. Dr. Gonzalez. Plan: We spent time discussing expectations for pain management after surgery. We discussed that no matterwhat medications are given there will be a certain amount of pain that is expected. We also discussed that we would typically use IV pain medications for the first 24 hours after surgery and then transition to an oral regimen unless on for seen complications occur. POSTOPERATIVE PAIN MANAGEMENT RECOMMENDATIONS: The following recommendations are not intended to replace the clinical judgement of the anesthesiologist in charge of the patient while in the post-anesthesia care unit (PACU) or while the patient is receiving epidural or intrathecal opioid analgesics under the care of an anesthesiologist. The purpose of this preoperative evaluation is to provide safe guidelines for acute postoperative pain management but does not replace an adequate postoperative evaluation to confirm their safe use at that time. These recommendations are a guide to help acute postoperative pain management once the patient arrives to the surgical unit (from the PACU), and are not intended to replace the clinical judgement of the physician and surgical team in charge of the patient. 1. On the day of surgery please order an Inpatient pain consult 2. Ketamine 5mg/h during surgery Recommendations for opioids: If using a CONCRETE HOPPER OPERATOR: No oral opioids Start a CONCRETE HOPPER OPERATOR pump with Dilaudid continuous IV infusion at a basal rate of 0.1 mg/hr with CONCRETE HOPPER OPERATOR boluses of 0.2-0.4 mg every 10 minutes. If not using a CONCRETE HOPPER OPERATOR: Start dilaudid 2-4mg q3h prn (alternatively can consider oxycodone 5-10mg q4h prn) Dilaudid IV 0.2-0.4mg q3h prn Other recommendations: 1. As soon as patient tolerates PO, restart lyrica and valium at preadmission doses 2. Complimentary Care Consult including acupuncture. 45 minutes was spent face to face on this visit >50% C&CC Thank you for the consult. 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
--- OUTSIDE RECORDS SUMMARY | 2022-07-06 15:01 | XMS_ITS | Encounter Summary ---
:1965 Author Organization [facility] Address [address] [address] Care Team Providers Name Role Phone Jose Holden MD Primary Care Provider [phone] Reason for Visit Reason Comments QUESTIONS, GENERAL Encounter Details Date Type Department Care Team Description 02/03/2018 Telephone [facility] Pete Gonzalez MD QUESTIONS, GENERAL [facility] [address] [facility] Neurosurgery/Ortho [place], [place] [address] [address] [place] [address] [phone] Social History Tobacco Use Types Packs/Day Years Used Date Smoking Tobacco: Every Day Cigarettes 0.5 30 Smokeless Tobacco: Never Comments: 30 year smoker on and off Alcohol Use Standard Drinks/Week Comments No 0 (1 standard drink = 0.6 oz pure alcoho l) Sex Assigned at Date Recorded Not on file documented as of this encounter Nursing Notes Chava Simon RN - 02/03/2018 11:59 AM CST Spoke with patient and she was informed we are waiting on PA from insurance and for Ana Rosa to come back from vacation to determine scheduling with Dr. Gonzalez. She stated understanding and will wait for a call from us once we receive insurance PA. Chava Simon RN 02/03/2018, 12:01 PM COOK Gi De La Vega - 02/03/2018 11:55 AM CST Patient calling to speak to Jamir. Would like to know about her surgery. Rod And Tube Straightener did let patient know that Ana Rosa surgery technician is out of the office. She did request to speak to Jamir. Please call her at listed number. Thanks COOK documented in this encounter Plan of Treatment Not on filedocumented as of this encounter Visit Diagnoses Not on filedocumented in this encounter Care Teams Silk Screen Printer Helper Relationship Specialty Start Date End Date Jose Holden MD PCP - General Otolaryngology 12/14/[address] [place], [place] [address] [address] documented as of this encounter
--- OUTSIDE RECORDS SUMMARY | 2022-07-06 15:01 | XMS_ITS | Encounter Summary ---
:1965 Author Organization [facility] Address [address], [place] [address] Care Team Providers Name Role Phone Jose Holden MD Primary Care Provider [phone] Reason for Visit Reason Comments Consult, New Patient vocal cord analysis Consult/Transfer Care (Routine) - Closed Specialty Diagnoses / Procedures Referred By Contact Refer red To Contact Diagnoses Pseudarthrosis after fusion or arthrodesis Screening procedure Pete Gonzalez MD [address] [place] [id number] Referral ID Status Reason Start Date Expiration Date Visits Requ ested Visits Authorized [id number] Closed 11/29/2017 02/28/2019 1 1 Encounter Details Date Type Department Care Team Description 12/26/2017 Office Visit Specialty Center Jose Holden Cer vical vertebral 401 Otolaryngology MD Deyvi fusion (Primary Dx) [address] [place] [address] [place], [place] [phone] Social History Tobacco Use Types Packs/Day Years [...] - Inhaled Oxygen Concentration - - Weight 75.7 kg (166 lb 12.8 oz) 12/26/2017 2:06 PM YARDMASTER Height - - Body Mass Index 32.58 11/29/2017 10:21 AM YARDMASTER documented in this encounter Progress Notes Jose Holden MD - 12/26/2017 3:00 PM CST HPI: Angie Mosquera is a 52 y.o. old female who presents for vocal cord evaluation prior to cervical spine surgery. Patient has significant history of cervical spine surgery having approximate four procedures, three in [place] one here in the [place] area last year. After her last surgery, developed significant hoarseness, loss of voice for approximately three months. Cervical approach with her last surgery was left-hand side. States that she was evaluated by a asset card clerk and there were plans for a procedure to improve her voice but prior to the procedure, her voice spontaneously recovered. She feels that her voice is not back to normal but significant only improved. Still with some hoarseness. No pain with phonation. No shortness of breath. Prior to this situation, her previous three cervical spine surgeries did not result in any hoarseness. She also feels that she has had some dysphagia since her last cervical spine surgery. Recently had swallow evaluation and felt that the previously placed plate was a factor in her dysphagia. She is on a thickener and feels that this has improved her swallowing of liquids. Dysphagia to the point where she can throw up multiple times per day. 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 Not currently working. is allergic to adhesive; amoxicillin; benzoin; cefaclor; chlorhexidine; gabapentin; morphine; nortriptyline; nsaids; soy allergy; sulfamethoxazole- trimethoprim; acyclovir; cephalosporins; and other. has no past medical history on file. has no past surgical history on file. reports that she has been smoking Cigarettes. She has been smoking about 0.50 packs per day. She has never used smokeless tobacco. She reports that she does not drink alcohol. family history is not on file. has a current medication list which includes the following prescription(s): albuterol 2.5 mg/3 ml (0.083%), benzonatate, biotin, budesonide-formoterol, cetirizine, vitamin d3, b-12, diazepam, diphenhydramine, dulera, erythromycin, esomeprazole, estrace vaginal, estradiol, folic acid, furosemide, hydroc ortisone, lamotrigine, latuda, lidocaine, lyrica, methocarbamol, naloxone, nicotine, pycnogenol, ondansetron, oxycodone, polyethylene glycol 3350, potassium chloride, potassium chloride, prednisone, sennosides-docusate sodium, tiotropium, topiramate, triamcinolone acetonide, valacyclovir, zonisamide, and zonisamide, and the following Facility-Administered Medications: barium sulfate. REVIEW OF SYSTEMS: Visual Changes - No Headache - No Rashes - No Irregular Heartbeat- No Nightsweats - No Nausea - No Joint Pain- Yes, all over body Easy Bruising - Yes Migraines - No Easy Bleeding - Yes Physical Exam: She is a well-appearing female in no acute distress. Only small amount of raspy quality to her voice. No stridor Skin of the head and neck were evaluated and no lesions were noted. Ears: Pinnas are normally formed bilaterally. Tympanic membranes are intact with no evidence of perforation, effusion, drainage or retraction on either side. Nasal cavity: No external deformity. Patent passages, septum straight, no purulence or polyps. She is breathing comfortably. She has healthy-appearing nasal mucosa. Nasopharynx clear, no mass or lesion Oral cavity: Good dentition, no mass or lesion. Tongue without lesion or mass, normal mobility. Oropharynx: clear with no mucosal lesions noted. Minimal tonsil tissue, base of tongue without mass or lesion Larynx hypopharynx:True vocal cords smooth and mobile bilaterally. No mass or lesion. Slight atrophyof left vocal cord compared to right hand side. Epiglottis, vallecula, pyriform sinuses without abnormalities. Remainder of hypopharyngeal exam within normal limits. Neck: supple with no abnormal sized lymph nodes noted. Eyes are normal with no nystagmus. Facial movement is House-Brackmann I bilaterally. Her affect is normal. Procedure: Flexible fiberoptic nasopharynglaryngoscopy is performed using Lidocaine and oxymetazoline for topical decongestion and anesthesia. Please see above physical exam section for details of findings. Patient tolerated procedure well without complications. Assessment and Plan: Hoarseness after cervical spine surgery, now improved. Suspect patient did have some temporary vocalcord paresis on the left hand side. Potentially, this could account for the small amount of atrophy that is visualized. However, mobility is normal at this time. Further improvement in voice quality could be obtained via speech therapy evaluation treatment. Withhold on this until after her next spine surgery if patient desires to improve her voice quality. Normal vocal cord mobility bilaterally. No pharyngeal mass lesion or other abnormality. Jose Holden MD 12/26/2017, 3:50 PM This note created using speech-recognition software and may contain unintended word substitutions. 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
--- OUTSIDE RECORDS SUMMARY | 2022-07-06 15:01 | XMS_ITS | Encounter Summary ---
:1965 [facility] Address [address] [place] [address] Care Team Providers Name Role Phone Jose Holden MD Primary Care Provider [phone] Encounter Details Date Type Department Care Team Description 02/13/2018 Orders Only External to [facility] External, [place] [address] Social History Tobacco Use Types Packs/Day Years [...] that is no t available. Provider External LAB_1 documented in this encounter Visit Diagnoses Not on filedocumented in this encounter Care Teams Heel Builder Relationship Specialty Start Date End Date Jose Holden MD PCP - General Otolaryngology 12/14/17 [place] [address] documented as of this encounter
--- OUTSIDE RECORDS SUMMARY | 2022-07-06 15:01 | XMS_ITS | Encounter Summary ---
:1965 Author Organization [facility] Address [address], [place] [address] Care Team Providers Name Role Phone Unassigned, Provider Primary Care Provider Unavailable Reason for Visit Procedure/Equipment (Routine) - Incomplete Specialty Diagnoses / Procedures Referred By Contact Refer red To Contact Diagnoses Screening procedure Pseudarthrosis after fusion or arthrodesis Pete Gonzalez MD Procedures XR Cervical Spine W Flex And Ext [address] [place] [address] Referral ID Status Reason Start Date Expiration Date Visits V isits Requested Authorized [id number] Incomplete 10/31/2017 01/30/2019 1 1 Encounter Details Date Type Department Care Team Description 11/29/2017 [facility] Screening procedure [facility] [address] [facility] Radiology [place], [place] [address] [address] [place] [address] [phone] Social History Tobacco Use Types Packs/Day Years [...] Associated Diagnosis Comme nts XR CERVICAL SPINE W Routine 11/29/2017 9:54 AM Screening proce dure Results for this FLEX AND EXT LEAF FAT SCRAPER procedure are i n the results section. documented in this encounter Results XR Cervical Spine W Flex And Ext (11/29/2017 9:54 AM LEAF FAT SCRAPER) Anatomical Region Laterality Modality Spine, C-Spine, Neck Computed Radiograph y Specimen (Source) Anatomical Collection Method Collection Time Re ceived Time Location / / Volume Laterality 11/29/2017 9:54 AM LEAF FAT SCRAPER Narrative 11/29/2017 10:59 AM LEAF FAT SCRAPER XR CERVICAL SPINE W FLEX AND EXT 11/29/2017 9:54 AM INDICATION: Neck pain. Prior cervical sp ine fusion. ? COMPARISON: None. FINDINGS: Extensive postoperative change s in the neck include ventral plate and screw hardware with interbody fixat ion across C6 through T1. There appears to be solid interbody fusion abo ve this extending to C3. Posterior instrumented fusion hardware extends fro m C3 to T1. No instability is evident between the skull base and C3, a lthough the degree of movement between flexion and extension appears li mited. Procedure Note Rian Corrales MD - 11/29/2017Form atting of this note might be different from the original. XR CERVICAL SPINE W FLEX AND EXT 11/29/2017 9:54 AM INDICATION: Neck pain. Prior cervical sp ine fusion. COMPARISON: None. FINDINGS: Extensive postoperative change s in the neck include ventral plate and screw hardware with interbody fixat ion across C6 through T1. There appears to be solid interbody fusion abo ve this extending to C3. Posterior instrumented fusion hardware extends fro m C3 to T1. No instability is evident between the skull base and C3, a lthough the degree of movement between flexion and extension appears li mited. Pete Gonzalez MD RAD [facility] documented in this encounter Visit Diagnoses Diagnosis Screening procedure Screening for unspecified condition documented in this encounter Care Teams Icu Clerk Relationship Specialty Start Date End Date Unassigned, Provider PCP - General 08/05/03 12/13/[address] [place] [id number] documented as of this encounter
--- OUTSIDE RECORDS SUMMARY | 2022-07-06 15:01 | XMS_ITS | Encounter Summary ---
:1965 Author Organization [facility] Address [address], [place] [address] Care Team Providers Name Role Phone Jose [...] Expiration Date Visits Requ ested Visits Authorized [id number] 1 1 Encounter Details Date Type Department Care Team Description 02/20/2018 Surgery RH Operating Room Marky Gonzalez MD FUSION POSTERIOR [address] [place] [address] [place], [place] C2-T3, REMOVAL HARDWARE [phone] [id number] SPINE Anterior plate [id number] (Wo rk) and Posterior screws and rods C2-T3, Image Guidance Social History Tobacco Use Types Packs/Day Years [...] Sign Reading Time Taken Comments Blood Pressure 119/79 02/20/2018 6:29 AM CDT Pulse 69 02/20/2018 6:29 AM CDT Temperature 36.5 ??C (97.7 ??F) 02/20/2018 6:29 AM CDT Respiratory Rate 16 02/20/2018 6:29 AM CDT Oxygen Saturation 95% 02/20/2018 6:29 AM CDT Inhaled Oxygen Concentration - - Weight 70.8 kg (156 lb) 02/20/2018 6:29 AM CDT Height 152.4 cm (5') 02/20/2018 6:29 AM CDT Body Mass Index 30.47 02/22/2018 5:30 PM CDT documented in this encounter Discharge Summaries Sneha Maher, Sirisha Celaya, MOTORCOACH OPERATOR, CAR WORKER HELPER - 02/23/2018 9:09 AM CDT Neurosurgery Discharge [...] Hospital Course: Angie Bender was admitted to [facility] on 02/20/2018 following posterior C2-T3 with Dr. [...] 9.4 - 12.4 fl Narrative Performed at [facility], [address] [place] [address] Physical Exam: BP 124/78 Pulse 74 Temp [...] T1. 3. Intraoperative placement and removal of Taylor-Kublax tongs. 4. Hardware removal, C6-T1 posterior. 5. [...] in strength to your extremeties. Neurosurgery clinic [phone]. If it is after hours, please call [...] follow up Clinical History (signs, symptoms, indications)(billing) Vin (provide Clinical Hx in comment box) Diet: [...] neurosurgery RN on 03/07 at 11AM at [address] [place] [address], 2nd floor. 2. Follow up with Dr. Gonzalez/Lois Pham PA-C/Sirisha Maher NP on 04/05 at 1:00PM at [address] [place] [address]. Patient also instructed to call clinic at [phone] or [facility] for any questions or concerns. Patient verbalizes understanding and states no further questions at this time. 3. Follow up with PCP for any medical issues Total time spent at the time of discharge was 30 minutes Sirisha Maher APRN, [place] Pgr#[phone] documented in this encounter Discharge Instructions Discharge InstructionsDonna Ellis RN - 02/23/2018 10:42 AM CDT [place] [address] General Information Discharging physician: Dr. Gonzalez [facility] Emergency & Urgently Needed Care: For emergencies call 911 and/or get medical help right away. If you are a [facility] member and have medical needs after clinic hours you may call the [facility] [phone] or . Fall Prevention Recommendations ??? Follow [...] footwear inside the house Discharge Instr - SafetyDonna Ellis RN - 02/23/2018 10:43 AM CDT Call [...] Ellis RN - 02/23/2018 11:50 AM CDT [facility] Discharge Note - Nursing Admission Date/Time: [...] Ellis RN --- End of Report --- Sirisha Rankin APRN, CAR WORKER HELPER - 02/23/2018 9:02 AM CDT Neurosurgery Progress [...] including C3- T1 posterior fusion (done in [place] approx 6 years ago), with C6-T1 pseudoarthrosis, [...] today. Dispo: Dc home today ?? Sirisha Maher APRN, CAR WORKER HELPER 02/23/2018, 9:02 AM Neurosurgery Pgr#[phone] Jolene Kaur PA-C - 02/22/2018 12:45 PM [...] including C3- T1 posterior fusion (done in [place] approx 6 years ago), with C6-T1 pseudoarthrosis, [...] Lois Pham PA-C, 02/22/2018, 9:05 AM Neurosurgery [phone] He Reyes MD - 02/22/2018 8:29 AM [...] with any questionsor concerns. He Reyes M.D. [facility] [phone] INTERVAL HISTORY: She started tizanidine last night [...] BID Jolene Kaur PA-C 1 Puff at 02/22/1844 ??? folic acid tablet 0.8 mg 0.8 mg Oral Daily Jolene Kaur PA-C 0.8 mg at 02/22/1843 ??? furosemide (LASIX) tablet 20 mg 20 mg Oral Daily Jolene Kaur PA-C 20 mg at 02/22/1843 ??? HYDROmorphone (DILAUDID) injection 0.2-0.4 mg 0.2-0.4 [...] BID Jolene Kaur PA-C 200 mg at 02/22/1843 ??? lansoprazole (PREVACID) capsule 30 mg 30 mg Oral Daily at 6 am Jolene Kaur PA-C 30 mg at 02/22/18 0540 ??? lidocaine (LIDODERM) 5 % patch 2 Patch 2 Patch Transdermal Daily Lois Pham PA-C ??? loratadine (CLARITIN) tablet 5 mg 5 mg Oral Daily Jolene Kaur PA-C 5 mg at 02/22/18743 ??? lurasidone (LATUDA) tablet 80 mg 80 mg Oral Daily Jolene Kaur PA-C 80 mg at 02/22/1843 ??? naloxone (NARCAN) injection 0.2 mg 0.2 [...] capsule 150 mg 150 mg Oral Daily Beryl Capps 150 mg at 02/22/18 0743 And ??? pregabalin (LYRICA) capsule 450 mg 450 mg Oral At Bedtime Beryl Capps 450 mg at 02/21/188 ??? prochlorperazine (COMPAZINE) injection 10 mg 10 [...] 02/22/18 0743 Current Outpatient Prescriptions Ordered in [facility] Medication Sig Dispense Refill ??? sennosides-docusate [...] TIME SPENT: 35 minutes including 50% time ylcz-hp-yfvs time counseling her about her diagnosis and treatment options, and coordinating care with the primary team. DECISION-MAKING: The level of decision-making in this case is high/complex due to the complexity of medical problems, acute/chronic pain, opioid analgesia issues, and behavioral factors. He Reyes M.D. Brooklyn Whittington - 02/21/2018 1:47 PM CDT [facility] Care Management Screening Admission Info: Cognitive capacity [...] She see Dr Dr Estephanie Franz at [facility]. No DC needs anticipated. I verified the demographics on the face sheet for the correct address, phone number, emergency contact and PCP information. Brooklyn Whittington RN CM [phone] Lois Pham PA-C - 02/21/2018 9:23 AM CDT Neurosurgery Progress Note Date of service: 02/21/2018 Subjective: Feels sore. Upset she did not have RESIDENTIAL NURSE overnight. Wants to go smoke. Wants to [...] including C3- T1 posterior fusion (done in [place] approx 6 years ago), with C6-T1 pseudoarthrosis, [...] there were a couple of options including RESIDENTIAL NURSE vs IV pain medications for post op pain control, and rationale for non RESIDENTIAL NURSE at this time. Did discuss that would not recommend DC as drain still has high output. Upright xrays prior to DC Up with assistance Continue hemovac until <30/shift Soft collar when OOB, PRN in bed for comfort PT/OT Dispo: Anticipate home in next 1-2 days pending drain output Lois Pham PA-C, 02/21/2018, 9:23 AM Neurosurgery [phone] He Reyes MD - 02/20/2018 1:20 PM CDT Note from Dr. Covarrubias on 02/13/18: ? 1. On the day of surgery please order an Inpatient pain consult 2. Ketamine 5mg/h during surgery ?? Recommendations for opioids: ?? If using a RESIDENTIAL NURSE: No oral opioids Start a RESIDENTIAL NURSE pump with Dilaudid continuous IV infusion at a basal rate of 0.1 mg/hr with RESIDENTIAL NURSE boluses of 0.2-0.4 mg every 10 minutes. ?? If not using a RESIDENTIAL NURSE: Start dilaudid 2-4mg q3h prn (alternatively can [...] Pham PA-C - 02/20/2018 3:24 PM CDT [facility] Brief Operative Progress Note Surgery Date: 02/20/2018 Surgeon(s) and Role: * Marky Gonzalez MD - Primary PHYSICIAN DOMESTIC HELPER-Meka Pham Pre-op Diagnosis: * Cervical spondylosis with [...] The procedure was medically necessary for an financial assistant because Dr. Gonzalez needed the operative exposure [...] Lois Pham PA-C, 02/20/2018, 3:25 PM Neurosurgery [phone] Marky Gonzalez MD - 02/20/2018 12:00 AM CDT [facility]: [phone] OPERATIVE REPORT DATE OF SURGERY: 02/20/2018 : 1965 SURGEON: MARKY GONZALEZ MD DOMESTIC HELPER: Lois Pham PA-C. PREOPERATIVE DIAGNOSES: 1. Status [...] stepwise fashion using absorbable suture. We placed Taylor-Kublax tongs and then flipped the patient prone [...] the entire procedure, performing all critical portions. MARKY GONZALEZ MD MMK/MODL /[id number] cc: MARKY GONZALEZ MD documented in this [...] the risk. She has been on these watcher automat long goods, desires to eventually come off. She also [...] with any questionsor concerns. He Reyes M.D. [facility] [phone] HISTORY OF PRESENT ILLNESS: Per Chart Review: [...] bypass) Pamelor Morphine - headache Opioid prescriber: LEDY Ojeda MD-valium [facility] database review: Risk Factors: History of substance [...] CURRENT MEDICATIONS: Current Facility-Administered Medications Ordered in [facility] Medication Dose Route Frequency Provider Last Rate [...] Lois Pham PA-C ??? glucose-ascorbic acid (aka [id number]) chewable tablet 4 Tab 4 Tab Oral [...] BID Lois Pham PA-C 150 mg at 02/21/18738 ??? prochlorperazine (COMPAZINE) injection 10 mg 10 mg Intravenous Q6H PRN Lois Pham PA-C ??? sennosides-docusate sodium (SENNA-S,SENNA PLUS) 8.6-50 MG per tablet 2 Tab 2 Tab Oral BID Lois Pham PA-C 2 Tab at 02/21/18738 ??? sodium chloride 0.9% infusion 1,000 mL Intravenous Continuous Lois Pham PA-C 100 mL/hrat 02/21/18425 1,000 mL at 02/21/18425 ??? sodium chloride 0.9% injection 3 mL 3 mL Intravenous Q8H Lois Pahm PA-C ? ? sodium chloride 0.9% injection [...] TIME SPENT: 70 minutes including 50% time hzqr-sn-fvrg time counseling her about her diagnosis and treatment options, and coordinating care with the primary team. DECISION-MAKING: The level of decision-making in this case is high/complex due to the complexity of medical problems, acute/chronic pain, opioid analgesia issues, and behavioral factors. documented in this encounter Miscellaneous Notes OR Nursing - Monica Pate, RN - 02/20/2018 2:49 PM CDT [facility] Progress Note Patient Name: Angie Bender Date [...] failure. Anatomic alignment. Shoulder prosthesis. Sirisha Maher MOTORCOACH OPERATOR, CAR WORKER HELPER RAD GD (ABNORMAL) Complete Blood Count-No Diff (02/22/2018 12:36 PM CDT) athologist Signature WBC 10.2 4.0 - 11.0 [facility] RBC 3.36 (L) 4.0 - 5.2 [facility] Hemoglobin 11.1 (L) 12.0 - 16.0 [facility] g/dl [facility] HCT 33.2 (L) 36.0 - 46.0 [facility] MCV 98.8 80 - 100 fl [facility] MCH 33.0 26 - 34 pg [facility] MCHC 33.4 32 - 36 [facility] g/dl [facility] RDW 14.4 11.5 - 14.5 [facility] Platelets 183 150 - 450 [facility] MPV 10.6 9.4 - 12.4 [facility] Specimen Anatomical Collection Method Collection Time Receive d Time (Source) Location / / Volume Laterality 02/22/2018 12:36 02/22/2018 PM CDT 12:37 PM CDT Narrative [facility] - 02/22/2018 12:46 PM C DT Performed at [facility] , [address] [place] [address] Lois Pham PA-C LAB_1 Performing Organization Address City/State/ZIP Code Phon e Number [facility] [address] [place] [address] [address], [facility] [phone] XR Cervical Spine AP/Lat Upright (02/21/2018 9:50 [...] is present. Lois Pham PA-C RAD GD Glucose, Whole Blood POC (02/21/2018 7:41 AM CDT) athologist Signature Glucose, Whole 109 70 - 180 [facility] Blood mg/dl [facility] Comment: Point of Care Testing RN Notified Specimen Anatomical Collection Method Collection Time Receive d Time (Source) Location / / Volume Laterality 02/21/2018 7:41 AM 8 7:57 CDT AM CDT Marky Gonzalez MD LAB_1 Performing Organization Address City/[facility] Phon e Number [address] [address] [place] [address], [facility] [phone] (ABNORMAL) Basic Metabolic Panel (02/21/2018 7:12 AM CDT) athologist Signature Sodium 138 136 - 145 [facility] mmol/L [facility] Potassium 3.9 3.5 - 5.1 [facility] mmol/L [facility] Chloride 111 (H) 98 - 109 [facility] mmol/L [facility] CO2 20 20 - 29 [facility] mmol/L [facility] Anion Gap 7 7 - 16 [facility] (calc.) mmol/L [facility] Glucose 117 70 - 180 [facility] mg/dl [facility] Calcium 8.3 (L) 8.4 - 10.2 [facility] mg/dl [facility] BUN 14 7 - 26 [facility] mg/dl [facility] Creatinine 0.63 0.55 - [facility] 1.02 mg/dl [facility] GFR, Estimated >60 >60 [facility] ml/min/1.7 [facility] 3m2 GFR, Est., If >60 >60 [facility] Black ml/min/1.7 [facility] 3m2 Specimen Anatomical Collection Method Collection Time Receive d Time (Source) Location / / Volume Laterality 02/21/2018 7:12 AM 8 7:13 CDT AM CDT Narrative [facility] - 02/21/2018 7:47 AM CD T Performed at [facility] , [address] [place] [address] Lois Pham PA-C LAB_1 Performing Organization Address [facility]/ZIP [facility] Phon e Number [address] [address] [place] [address], [facility] (ABNORMAL) Hemogram with Plts (02/21/2018 7:12 AM CDT) athologist Signature WBC 10.0 4.0 - 11.0 [facility] RBC 3.29 (L) 4.0 - 5.2 [facility] Hemoglobin 10.7 (L) 12.0 - 16.0 [facility] g/dl [facility]OSP[facility] HCT 32.2 (L) 36.0 - 46.0 [facility] MCV 97.9 80 - 100 fl [facility] MCH 32.5 26 - 34 pg [facility] MCHC 33.2 32 - 36 [facility] g/dl [facility]OSPITAL RDW 13.9 11.5 - 14.5 [facility] Platelets 186 150 - 450 [facility] MPV 10.3 9.4 - 12.4 [facility] Specimen Anatomical Collection Method Collection Time Receive d Time (Source) Location / / Volume Laterality 02/21/2018 7:12 AM 8 7:13 CDT AM CDT Narrative [facility] - 02/21/2018 7:26 AM CD T Performed at [facility] , [address] [place] [address] Lois Pham PA-C LAB_1 Performing Organization Address City/[facility] Phon e Number [address] [address], [facility] Glucose, Whole Blood POC (02/20/2018 11:20 PM CDT) athologist Signature Glucose, Whole 140 70 - 180 [facility] Blood mg/dl [facility] Comment: Point of Care Testing No Action Required Specimen Anatomical Collection Method Collection Time Receive d Time (Source) Location / / Volume Laterality 02/20/2018 11:20 02/20/2018 PM CDT 11:26 PM CDT Marky Gonzalez MD LAB_1 Performing Organization Address City/[facility] Phon e Number [address] [address], [facility] Glucose, Whole Blood POC (02/20/2018 5:05 PM CDT) athologist Signature Glucose, Whole 145 70 - 180 [facility] Blood mg/dl [facility] Comment: Point of Care Testing No Action Required Specimen Anatomical Collection Method Collection Time Receive d Time (Source) Location / / Volume Laterality 02/20/2018 5:05 PM 8 5:25 CDT PM CDT Marky Gonzalez MD LAB_1 Performing Organization Address City/State/ZIP Code Phon e Number [address] [address], [facility] Glucose, Whole Blood POC (02/20/2018 3:45 PM CDT) athologist Signature Glucose, Whole 145 70 - 180 [facility] Blood mg/dl [facility] Comment: Point of Care Testing No Action Required Specimen Anatomical Collection Method Collection Time Receive d Time (Source) Location / / Volume Laterality 02/20/2018 3:45 PM 8 3:52 CDT PM CDT Marky Gonzalez MD LAB_1 Performing Organization Address City/[facility]/ZIP Code Phon e Number [address] [address], [facility] XR C-Arm 0-30 Minutes (02/20/2018 2:05 PM CDT) Anatomical Region Laterality Modality Other Specimen (Source) Anatomical Location Collection Method / Collectio n Time Received Time / Laterality Volume Narrative 02/20/2018 2:06 PM CDT Fluoroscopy provided by a geodetic surveyor technologist. Exact fluoroscopy time is documented in end of exam information in EPIC Marky Gonzalez MD RAD GD XR C-Arm 2.5-3 Hours (02/20/2018 12:45 PM CDT) Anatomical Region Laterality Modality Other Specimen (Source) Anatomical Location Collection Method / Collectio n Time Received Time / Laterality Volume Narrative 02/20/2018 12:45 PM CDT Fluoroscopy provided by a geodetic surveyor technologist. Exact fluoroscopy time is documented in end of exam information in EPIC Marky Gonzalez MD RAD GD XR C-Arm 30-59 Minutes (02/20/2018 12:36 PM CDT) Anatomical Region Laterality Modality Other Specimen (Source) Anatomical Location Collection Method / Collectio n Time Received Time / Laterality Volume Narrative 02/20/2018 12:36 PM CDT Fluoroscopy provided by a geodetic surveyor technologist. Exact fluoroscopy time is documented in end of exam information in EPIC Marky Gonzalez MD RAD GD Glucose, Whole Blood POC (02/20/2018 9:02 AM CDT) athologist Signature Glucose, Whole 135 70 - 180 [facility] Blood mg/dl [facility] Comment: Point of Care Testing RN Notified Specimen Anatomical Collection Method Collection Time Receive d Time (Source) Location / / Volume Laterality 02/20/2018 9:02 AM 8 9:08 CDT AM CDT Marky Gonzalez MD LAB_1 Performing Organization Address City/[facility]/ZIP Code Phon e Number [address] [address] [place] [address], [facility] Glucose, Whole Blood POC (02/20/2018 6:25 AM CDT) athologist Signature Glucose, Whole 90 70 - 180 [facility] Blood mg/dl [facility] Specimen Anatomical Collection Method Collection Time Receive d Time (Source) Location / / Volume Laterality 02/20/2018 6:25 AM 8 6:34 CDT AM CDT Marky Gonzalez MD LAB_1 Performing Organization Address City/[facility]/ZIP Code Phon e Number [address] [address], [facility] ABO/RH(D) Retype (02/20/2018 6:22 AM CDT) athologist Signature ABO/RH(D) A NEGATIVE [facility] Specimen Anatomical Collection Method Collection Time Receive d Time (Source) Location / / Volume Laterality 02/20/2018 6:22 AM 8 6:25 CDT AM CDT Narrative [facility] - 02/20/2018 7:06 AM CD T Performed at [facility] , [address] [place] [address] Marky Gonzalez MD LAB_1 Performing Organization Address City/[facility]/ZIP Code Phon e Number [address] [address], [facility] INR/Protime (PT/INR) (02/20/2018 6:08 AM CDT) P athologist Signature Protime 13.0 12.0 - 14.5 [facility] INR 1.0 0.9 - 1.1 [facility] Specimen Anatomical Collection Method Collection Time Receive d Time (Source) Location / / Volume Laterality 02/20/2018 6:08 AM 8 6:22 CDT AM CDT Narrative [facility] - 02/20/2018 6:40 AM CD T Performed at [facility] , [address] [place] [address] Sirisha Maher APRN, CNP LAB_1 Performing Organization Address City/[facility] Phon e Number [address] [address] [place] [address], [facility] Hemogram with Platelets (02/20/2018 6:08 AM CDT) P athologist Signature WBC 6.7 4.0 - 11.0 [facility] RBC 4.13 4.0 - 5.2 [facility] Hemoglobin 13.5 12.0 - 16.0 [facility] gdl [facility] HCT 39.8 36.0 - 46.0 [facility] MCV 96.4 80 - 100 [facility] MCH 32.7 26 - 34 pg [facility] MCHC 33.9 32 - 36 [facility] RDW 13.8 11.5 - 14.5 [facility] Platelets 245 150 - 450 [facility] MPV 10.6 9.4 - 12.4 [facility] Specimen Anatomical Collection Method Collection Time Receive d Time (Source) Location / / Volume Laterality 02/20/2018 6:08 AM 8 6:22 CDT AM CDT Narrative [facility] - 02/20/2018 6:32 AM CD T Performed at [facility] , [address] [place] [address] Sirisha Maher APRN, CAR WORKER HELPER LAB_1 Performing Organization Address City/[facility]/ZIP [facility] Phon e Number [address] [address], [facility] [phone] (ABNORMAL) Basic Metabolic Panel (02/20/2018 6:08 AM CDT) athologist Signature Sodium 139 136 - 145 [facility] mmol/L [facility] Potassium 4.4 3.5 - 5.1 [facility] mmol/L [facility]OSPITAL Comment: Specimen Slightly Hemolyzed Hemolysis May Affect Result Chloride 109 98 - 109 mmol/L [facility] AL CO2 18 (L) 20 - 29 mmol/L [facility] L Anion Gap (calc.) 12 7 - 16 mmol/L [facility] Glucose 96 70 - 180 mg/dl [facility] L Calcium 9.4 8.4 - 10.2 mg/dl [facility] BUN 14 7 - 26 mg/dl [facility] Creatinine 0.69 0.55 - 1.02 mg/dl [facility] GFR, Estimated >60 >60 ml/min/1.73m2 [facility] GFR, Est., If Black >60 >60 ml/min/1.73m2 [facility] Specimen Anatomical Collection Method Collection Time Receive d Time (Source) Location / / Volume Laterality 02/20/2018 6:08 AM 8 6:22 CDT AM CDT [facility] - 02/20/2018 6:52 AM CD T Performed at [facility] , [address] [place] [address] Sirisha Maher APRN, CAR WORKER HELPER LAB_1 Performing Organization Address City/State/ZIP Code Phon e Number [address] [address], [facility] aPTT (Activated Partial Thromboplastin Time) (02/20/2018 6:08 AM CDT) athologist Signature PTT 26.8 24.0 - 37.0 [facility] sec [facility] Specimen Anatomical Collection Method Collection Time Receive d Time (Source) Location / / Volume Laterality 02/20/2018 6:08 AM 8 6:22 CDT AM CDT [facility] - 02/20/2018 6:40 AM CD T Performed at [facility] , [address] [place] [address] Sirisha Celaya Sneha Maher APRN, CAR WORKER HELPER LAB_1 Performing Organization Address City/[facility]/ZIP Code Phon e Number [address] [address], [facility] [phone] ABO Rh & Antibody Screen (Type & Screen) (02/20/2018 6:07 AM CDT) [facility] gist Method Time Signature Crossmatch 02/23/2018 [facility]OSPITAL ABO/RH(D) A NEGATIVE [facility] Antibody NEGATIVE [facility] Screen HOSPITAL Specimen Anatomical Collection Method Collection Time Receive d Time (Source) Location / / Volume Laterality 02/20/2018 6:07 AM 8 6:22 CDT AM CDT Narrative [facility] - 02/20/2018 7:10 AM CD T Performed at [facility] , [address] [place] [address] Sirisha Maher APRN, CAR WORKER HELPER LAB_1 Performing Organization Address City/[facility] Phon e Number [address] [address], [facility] EKG IP (02/20/2018 12:00 AM CDT) Specimen (Source) Anatomical Location Collection Method / Collectio n Time Received Time / Laterality Volume 02/20/2018 Narrative This result has an attachment that is no t available. 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 MD Notified Note Name of MD notified: Ankit Time of MD notification: 1600 hours and 1 minute Reason: Pt.asking for valium now and current order for HS prn. plz review. [id number]. Response: Valium one time dose now and HS prn. Shawn Butcher RN --- End of Report --- Plan of Care - Alec Gifford RN - 02/22/2018 1:57 PM CDT [facility] Plan of Care Note Assessment: pain Plan: [...] Lundberg RN - 02/22/2018 2:32 AM CDT [facility] Plan of Care Note Assessment: Pain Plan: Assess and intervene as needed Subjective: Pt rates posterior neck pain & left shoulder pain -07/07 Objective: A/Ox4, SBA w/ walker. PRN PO [...] Orellana RN - 02/22/2018 12:33 AM CDT [facility] Plan of Care Note Assessment: Pain Plan: [...] Gifford RN - 02/21/2018 1:41 PM CDT [facility] Plan of Care Note Assessment: pain control [...] Lundberg RN - 02/21/2018 4:56 AM CDT [facility] MD Notified Note Name of MD notified: Neurosurg Time of MD notification: 0400 hours and 55 minutes Reason: [id number]- Pt reporting oral/IV pain meds ineffective. Pt upset, req further intervention. Please advise. Thanks. Response: Discussed w/ neurosurg. To be addressed in AM and PRNs to continue to be administered as able. Anita Lundberg RN --- End of Report --- Plan of Care - Anita Lundberg RN - 02/21/2018 2:26 AM CDT [facility] Plan of Care Note Assessment: Pain Plan: [...] Report --- Plan of Care - Manoj Singh RN - 02/20/2018 11:57 PM CDT Problem: Pain, Acute (Adult) Intervention: Monitor/Manage Analgesia 02/20/182123 Manage Acute Burn Pain Pain Management Interventions pain plan reviewed with patient/caregiver;pillow support provided Intervention: Mutually Develop/Implement Acute Pain Management Plan 02/20/182123 Manage Acute Burn Pain Pain Management Interventions pain plan reviewed with patient/caregiver;pillow support provided Goal: Identify Related Risk Factors and Signs and Symptoms Outcome: Progressing 02/20/18 7746 Pain, Acute Related Risk Factors (Acute Pain) surgery;procedure/treatment;persistent pain;disease process Signs and Symptoms (Acute Pain) alteration in muscle tone;sleep pattern alteration;verbalization of pain descriptors;questions meaning of pain;pacing/restlessness Goal: Acceptable Pain Control/Comfort Level 02/20/18 2356 Pain, Acute (Adult) Acceptable Pain Control/Comfort Level unable to achieve outcome Comments: [facility] Plan of Care Note Assessment: posterior neck pain worst than anterior Plan: IHR, assessment, pain control Subjective: I thought that I was going to be on a dilaudid drip Objective: Pt angry that she was not on a RESIDENTIAL NURSE pump, Dilaudid PO and IV given q3h, [...] 1,000 mg, Oral, TID, First dose on 02/20/18 at 2000, Until Discontinued, PACU & Post-op Given 02/22/2018 7:40 PM CDT 1,000 mg Given 02/22/2018 2:05 PM CDT 1,000 mg cyanocobalamin (VITAMIN B12) tablet 500 mcg Given 02/23/2018 8:18 AM CDT 500 mcg 500 mcg, Oral, DAILY, First dose on Tue02/21/18 at 0945, Until Discontinued Given 02/22/2018 7:42 AM CDT 500 mcg Given 02/21/2018 10:14 AM CDT 500 mcg diazePAM (VALIUM) tablet 5 mg Given 02/22/2018 11:20 PM CDT 5 mg 5 mg, Oral, HS PRN, Anxiety, Starting on Tue02/22/18 at 1533, Until Clementine 02/23/18 at 1350 estradiol (VIVELLEDOT) 0.05 MG/24HR Patch Applied 02/23/2018 8 :21 AM CDT 1 Patch biweekly patch 1 Patch 1 Patch, Transdermal, TWICE WEEKLY (Once per day on Tue), First dose on Tue02/22/18 at 1600, Until Discontinued, Hazardous waste disposal required. Patch Applied 02/22/2018 5:13 PM CDT 1 Patch fluticasone-salmeterol (ADVAIR) 250-50 Given 02/23/2018 8:22 AM [...] Given 02/21/2018 10:15 AM CDT 20 mg gelatin sponge with thrombin Given 02/20/2018 8:54 AM CDT 2,500 Units Wound Site (GELFOAM PLUS) dressing ONCE PRN, Starting on Tue02/20/18 at 0854, Until Tue02/20/18 at 1650 HYDROmorphone (DILAUDID) tablet 2-4 mg Given 02/23/2018 9:39 AM CDT 2 mg 2-4 mg, Oral, Q3H PRN, Pain, Starting on Tue02/20/18 at 1635, PACU & Post-op Given 02/23/2018 6:43 AM CDT 4 mg Given 02/23/2018 3:25 AM CDT 4 mg ketamine 1 mg/mL IV syringe INFUSION 5 mg/hr (5 mL/hr), Intravenous, INTRA-OP , Starting on Tue02/20/18 at 1322, For 1 dose, Continous infusion lamoTRIgine (LaMICtal) tablet 200 mg Given 02/23/2018 [...] Applied 02/22/2018 10:32 AM CDT 2 Patches lidocaine-epinephrine 1 %[id number] injec tion Given 02/20/2018 10:21 AM CDT 10 mL ONCE PRN, Starting on Tue02/20/18 at 1020, Until Tue02/20/18 at 1650, Intra-op Given 02/20/2018 8:32 AM CDT 3 mL loratadine (CLARITIN) tablet 5 mg Given 02/23/2018 [...] Given 02/21/2018 10:16 AM CDT 80 mg ondansetron (ZOFRAN-ODT) disintegrating tablet Given 0 [...] mEq pregabalin (LYRICA) capsule 150 mg Given 02/23/2018 [...] AM CDT 2 Tablets sodium chloride 0.9% injection 3 mL Given [...] mcg tiZANidine (ZANAFLEX) tablet 2-4 mg Given 02/23/2018 5:10 AM CDT 4 mg 2-4 mg, Oral, Q8H PRN, Muscle Spasms, Starting on Tue02/21/18 at 1900, Until Clementine 02/23/18 at 1350 Given 02/22/2018 8:52 PM CDT 4 mg Given 02/22/2018 12:32 PM CDT 4 mg triamcinolone acetonide (KENALOG-40) 40 Given 02/20/2018 9:10 AM CDT 40 mg Back MG/ML injection ONCE PRN, Starting on Tue02/20/18 at 0910, Until Tue02/20/18 at 1650, Intra-op vancomycin (VANCOCIN) injection Given 02/20/2018 2:44 PM CDT 1 g Wound Site ONCE PRN, Starting on Tue02/20/18 at 0909, Intra-op Given 02/20/2018 9:09 AM CDT 1 g Wound Site zonisamide (ZONEGRAN) capsule 300 mg Given 02/23/2018 [...] 1,000 mg 0739 (Given - Provider: Alec Gifford, RN)1333 (Given - Provider: Alec Gifford, RN)1958 (Given - Provider: Judith Orellana, RADHA) 0743 (Given - Provider: Alec Gifford, RN)14 05 (Given - Provider: Alec Gifford, RN)1940 (Given - Provider: Anisha Bach, RADHA) 0821 (Given - Provider: Marlen Segura, RN) 1,000 mg, Oral, TID, First dose on Tue02/20/18 at 2000, PACU & P ost-op cyanocobalamin (VITAMIN B12) tablet 500 mcg 1014 (Give n - Provider: Alec Gifford RN) 0742 (Given - Provider: Alec Gifford RN) 0818 (Given - P rovider: Marlen Segura, RN) 500 mcg, Oral, DAILY, First dose on Tue02/21/18 at 0945 estradiol (VIVELLEDOT) 0.05 MG/24HR biweekly patch 1 Patch 1713 (Patch Applied - Provider: Shawn Patton RN) 0759 (Patch Removed - Provider: Marlen Segura, RN)0821 (Patch Applied - Provider: Marlen Segura, RN) 1 Patch, Transdermal, TWICE WEEKLY (Once per day on Tue), First dose on Tue02/22/18 at 1600, Hazardous waste disposal required. fluticasone-salmeterol (ADVAIR) 250-50 MCG/DOSE diskus inhaler 1 Puff 1017 (Given - Provider: Alec Gifford RN)2109 (Given - Provider: Judith Orellana, RADHA) 0744 (Given - Provider: Alec Gifford, RADHA)1944 (Given - Provider: Anisha Bach, RADHA) 0822 (Given - Provider: Marlen Segura, RN) 1 Puff, Inhalation, BID, First dose on Tue02/21/18 at 0945 folic acid tablet 0.8 mg 1015 (Given - Provider: Alec Gifford RN) 0743 (Given - Provider: Alec Gifford RN) 0820 (Given - Provider: Marlen Segura RN) 0.8 mg, Oral, DAILY, First dose on Tue02/21/18 at 0945 furosemide (LASIX) tablet 20 mg 1015 (Given - Provider: Alec Gifford RN) 0743 (Given - Provider: Alec Gifford RN) 0820 (Given - Provider: Marlen Segura RN) 20 mg, Oral, DAILY, First dose on [...] RN) 0819 (Given - Provider: Marlen Segura, RADHA) [...] Provider: Alec Gifford RN - Comment: pt request)2231 (Patch Removed - Provider: Shawn Patton RN) 817 (Patch Applied - Provider: Marlen navas RN)2017 (Due: Patch Removed - Provider: Marlen Segura, RADHA) 2 Patch, Transdermal, DAILY, First dose on Tue02/22/18 at 0800, Apply patch to joyce-incisional. Patch may remain in place for up to 12 hours in any 24 hour period, i.e. patches placed at 0800 should be removed at 1999. May cut patch to appropriate size. loratadine [...] 0820 (Given - Provider: Marlen Segura, RN) 80 mg, Oral, DAILY, First dose on Tue at 0945, Administer with food. Meal or snack must contain at least 350 calories. polyethylene glycol (MIRALAX) oral powder 17 g 0739 (G iven - Provider: Alec Gifford RN) 0742 (Given - Provider: Alec Gifford RN) 0818 (Given - P rovider: Marlen Segura RN) [...] refused) 0744 (Given - Provider: Alec Gifford RN)194 (Given - Provider: Anisha Bach, RADHA) 0819 [...] 1) 210 8 (Given - Provider: Judith Orellana, RADHA) 2105 (Given - Provider: Shawn Patton, RADHA) 450 mg, Oral, HS, First dose on 02/21 at 2100, 150mg in the AM, 450mg at HS sennosides-docusate sodium (SENNA-S,SENNA PLUS) 8.6-50 MG per tablet 2 Tab 0739 (Given - Provider: Alec Gifford, RADHA)1958 (Given - Provider: Judith Orellana RN) 0744 (Given - Provider: Alec Gifford RN)1942 (Given - Provider: Anisha Bach RN) 0820 [...] Alec Gifford RN)1715 (Given - Provider: Shawn Patton, RADHA) 0000 (Canceled Entry - Provider: Heather Carbajal RN)0800 (Canceled Entry - Provider: Marlen Segura, RADHA) 3 mL, Intravenous, Q8H, First dose on Mo 02/20/18 at 1700, May DC IVF and saline lock once pt tolerating PO intake adequately. Saline lock until discontinued., PACU & Post-op 1613 (Given - Provider: Judith Orellana, RADHA) tiotropium (SPIRIVA) inhalation capsule 18 mcg 1022 (G iven - Provider: Alec Gifford RN) 0744 (Given - Provider: Alec Gifford, RADHA) 0822 (Given - P rovider: Marlen Segura, RN) 18 mcg, Inhalation, DAILY, First dose on Tue02/21/18 at 0945 tiZANidine (ZANAFLEX) tablet 2-4 mg (CANCELED) 1333 (G iven - Provider: Alec Gifford, RN) 2-4 mg, Oral, Q8H (NON-STND), First dose on Tue02/21/18 at 1215 vancomycin 1 g IV piggyback PYXIS (COMPLETED) 0602 (St arted - Provider: Anita Lundberg, RADHA)0702 (Due: Infused - Provider: Anita Lundberg, RADHA) 1,000 mg, Intravenous, Administer over 6 0 Minutes, Q12H (NON-STND), First dose on Tue02/20/18 at 1830, For 24 hours, PACU & Post-op zonisamide (ZONEGRAN) capsule 300 mg 1015 (Given - Pro vider: Alec Gifford RN)1958 (Given - Provider: Judith Orellana RN) 0743 (Given - Provider: Alec Gifford, RADHA)1942 (Given - Provider: Anisha Bach, RADHA) 0819 (Given - Provider: Marlen Segura, RADHA) 300 mg, Oral, BID, First dose on [...] Anita Lundberg RN)1259 (Given - Provider: Coral Beaver RN)2107 (Given - Provider: Judith Orellana RN) 0035 (Given - Provider: Anita bunch RN)0355 (Given - Provider: Anita Lundberg RN)0704 (Given - Provider: Anita Lundberg RN)1028 (Given - Provider: Alec Gifford, RADHA) 0.2-0.4 mg, Intravenous, Q3H PRN, Pain, Use if unable to take PO, Starting Tue02/20/18 at 1635, For 48 hours, Give IV opioid for breakthrough pain, if unable to give PO or per patient preference., PACU & Post-op HYDROmorphone (DILAUDID) tablet 2-4 mg 0056 (Given - P rovider: Anita Lundberg RN)0425 (Given - Provider: Anita Lundberg RN)0738 (Given - Provider: Alec Gifford, RADHA)1034 (Given - Provider: Alec Gifford, RN)1612 (Given - Provider: Judith Orellana, RADHA) 0227 (Given - Provider: Anita bunch RN)0540 (Given - Provider: Anita Lundberg RN)0836 (Given - Provider: Alec Gifford, RN)1140 (Given - Provider: Alec Gifford RN)1433 (Given - Provider: Alec Miguel RN) 0022 (Given - Provider: Heather espinoza, RN)0325 (Given - Provider: Heather Carbajal, RN)0643 (Given - Provider: Heather Carbajal, RN)0939 (Given - Provider: Marlen Segura RN) [...] Oral, Q8H PRN, Nausea, Vomiting, S tarting 02/21/18 at 0917, Do not swallow tablet whole. [...] mg 1835 (Given - Prov ider: Shawn Patton, RADHA) 0400 (Given - Provider: Anita bunch RN)1232 (Given - Provider: Alec Gifford, RADHA)2052 (Given - Provider: Shawn Patton, RADHA) 0510 (Given - Provider: Heather Carbajal, RADHA) 2-4 mg, Oral, Q8H PRN, Muscle Spasms, [...] HS
documented in this encounter Care Teams Store Detective Relationship Specialty Start Date End Date Jose Holden MD PCP - General Otolaryngology 12/14/[address] [place] [id number] documented as of this encounter
--- OUTSIDE RECORDS SUMMARY | 2022-07-06 15:01 | XMS_ITS | Encounter Summary ---
:1965 Author Organization [facility] Address [address] [place] [address] Care Team Providers Name Role Phone Jose Holden MD Primary Care Provider [phone] Reason for Visit Procedure/Equipment (Routine) - Incomplete Specialty Diagnoses / Procedures Referred By Contact Refer red To Contact Diagnoses Screening procedure Pseudarthrosis after fusion or arthrodesis Pete Gonzalez MD Procedures FL Video Swallow Study [address] [place] [address] Referral ID Status Reason Start Date Expiration Date Visits V isits Requested Authorized [id number] Incomplete 11/29/2017 02/28/2019 1 1 Encounter Details Date Type Department Care Team Description 12/26/2017 [facility] Screening [facility]; [facility] [address] [place], [place] [address]E Ps eudarthrosis after fusion or arthrodesis Radiology [facility] [address] [place] [address] [place] [address] [phone] (Wo rk) Social History Tobacco Use Types [...] Name Priority Date/Time Associated Diagnosis Comme nts FL VIDEO SWALLOW Routine 12/26/2017 1:03 PM Screening pr ocedure Results for this STUDY NETSUITE DEVELOPER Pseudarthrosis after procedu re are in fusion or the results arthrodesis section. documented in this encounter Results FL Video Swallow Study (12/26/2017 1:03 PM NETSUITE DEVELOPER) Anatomical Region Laterality Modality Neck, Chest Radio Fluoroscopy Specimen (Source) Anatomical Collection Method Collection Time Re ceived Time Location / / Volume Laterality 12/26/2017 1:03 PM NETSUITE DEVELOPER Narrative 12/26/2017 6:00 PM NETSUITE DEVELOPER FL VIDEO SWALLOW STUDY 12/26/2017 1:03 PM INDICATION: Dysphasia post cervical fusi on. TECHNIQUE: Routine. COMPARISON: None. FINDINGS: FLUOROSCOPIC TIME: 53 seconds. NUMBER OF IMAGES: 8 videofluoroscopic se chace are saved to PACS.. Swallow study with Speech Pathology usin g multiple barium thicknesses. Flash penetration without reshma aspirati on is noted with thin liquids. This is not seen with nectar thickened liqui ds. Soft texture and cracker consistency materials as well as a stand rhoda barium tablet were swallowed without difficulty. Partially visualized changes of anterior and posterior cervical fusion. Partially visualized ve ntral plate and screw at the presumed C6-C7 levels. Minor impact upon the adjacent upper cervical esophagus. CONCLUSION: 1. ??Penetration with thin liquids. No f rank aspiration. See speech pathology report for additional details. Procedure Note Evelio Degroot MD - 12/26/2017Formatt ing of this note might be different from the original. FL VIDEO SWALLOW STUDY 12/26/2017 1:03 PM INDICATION: Dysphasia post cervical fusi on. TECHNIQUE: Routine. COMPARISON: None. FINDINGS: FLUOROSCOPIC TIME: 53 seconds. NUMBER OF IMAGES: 8 videofluoroscopic se chace are saved to PACS.. Swallow study with Speech Pathology usin g multiple barium thicknesses. Flash penetration without reshma aspirati on is noted with thin liquids. This is not seen with nectar thickened liqui ds. Soft texture and cracker consistency materials as well as a stand rhoda barium tablet were swallowed without difficulty. Partially visualized changes of anterior and posterior cervical fusion. Partially visualized ve ntral plate and screw at the presumed C6-C7 levels. Minor impact upon the adjacent upper cervical esophagus. CONCLUSION: 1. Penetration with thin liquids. No fra nk aspiration. See speech pathology report for additional details. Pete Gonzalez MD [facility] documented in this encounter Visit Diagnoses Diagnosis Screening procedure Screening for unspecified condition Pseudarthrosis after fusion or arthrodes is Arthrodesis status documented in this encounter Administered Medications Inactive Administered Medications - up to 3 most recent administrations Medication Order MAR Action Action Date Dose Rate Site barium sulfate (EZ PAQUE) Given 12/26/2017 1:06 PM NETSUITE DEVELOPER 200 mL suspension 200 mL 200 mL, Oral, ONCE (NON-SCHEDULED), Starting on Tue12/26/17 at 1305, For 1 dose barium sulfate (EZ-DISK) tablet 700 mg Given 12/26/2017 1:06 PM NETSUITE DEVELOPER 700 mg 700 mg, Oral, ONCE (NON-SCHEDULED), Starting on Tue12/26/17 at 1305, Until Tue12/26/17 at 1306, For 1 dose barium sulfate (EZ-PASTE) oral cream 9 g Given 12/26/2017 1:06 PM NETSUITE DEVELOPER 9 g 9 g (15 mL), Oral, ONCE (NON-SCHEDULED), Starting on Tue12/26/17 at 1305, For 1 dose barium sulfate (VARIBAR, TAGITOL V) 40 % Given 12/26/2017 1:06 P M NETSUITE DEVELOPER 240 mL suspension 240 mL 240 mL, Oral, ONCE (NON-SCHEDULED), Starting on Tue12/26/17 at 1305, Until Tue02/20/18 at 1710, For 3 doses documented in this encounter Care Teams Training And Development Assistant Relationship Specialty Start Date End Date Jose Holden MD PCP - General Otolaryngology 12/14/17 [facility] [place] [address] documented as of this encounter
--- OUTSIDE RECORDS SUMMARY | 2022-07-06 15:01 | XMS_ITS | Encounter Summary ---
:1965 Author Organization [facility] Address [address] [place] [address] Care Team Providers Name Role Phone Jose Holden MD Primary Care Provider [phone] Reason for Referral Consult/Transfer Care (Routine) - Closed Specialty Diagnoses / Procedures Referred By Contact Refer red To Contact Neurosurgery Diagnoses Pseudarthrosis after fusion or arthrodesis Pete Gonzalez MD [facility] [address] [place] [address] [place] [address] Phone: Fax: Referral ID Status Reason Start Date Expiration Date Visits Requ ested Visits Authorized [id number] Closed 01/17/2018 04/18/2019 1 1 Scheduling Instructions Your provider has recommended an appoint ment for a pre-operative pain consult with [facility] You may call [phone] to schedule your appointment.?? If you prefer, a mirela billy will contact you within the next 3 business days to assist you in setting u p this appointment. ENT [facility]GR Reason for Visit Reason Comments Revisit Encounter Details Date Type Department Care Team Description 01/17/2018 Office Visit [facility], Pseudarthr osis after [facility] MD fusion or arthrodesis Neurosurgery/Ortho [address] [place] [address] [place] [address] [phone] Social History Tobacco Use Types Packs/Day Years [...] Sign Reading Time Taken Comments Blood Pressure 137/83 01/17/2018 11:51 AM PATIENT [facility] MGR Pulse 83 01/17/2018 11:51 AM PATIENT [facility] Temperature 36.5 ??C (97.7 ??F) 01/17/2018 11:51 AM PATIENT [facility] Respiratory Rate 16 01/17/2018 11:51 AM PATIENT [facility] Oxygen Saturation - - Inhaled Oxygen Concentration - - Weight - - Height - - Body Mass Index - - documented in this encounter Patient Instructions Patient InstructionsChava Simon RN - 01/17/2018 11:40 AM CST Neurosurgery/Spine Clinic Patient Instructions you have been referred to Dr. Covarrubias in the Interventional Pain Management Clinic for a preoperative Pain Consult prior to your surgery. This appointment will help us prepare a pain management plan for you, such as which medications will work best for you. Dr. Covarrubias will advise your surgeon on how to treat your pain after surgery. His team will help take care of you in the hospital as well. You will be scheduled for surgery with Dr. Pete Gonzalez for a cervical fusion. Ana Rosa or Aura will be calling you with a date & time for the surgery once we have approval from your insurance company.(Can take 5-15 business days) Please call Ana Rosa at [phone] if you have not heard from her. ?? Stop all herbal supplements 14 days prior to surgery. (Fishoil, Glucosamine, Multi-Vit, CoQ10, Flaxseed oil etc). ?? Stop all aspirin, ibuprofen, and all blood thinning products 7 days prior to your surgery date You will need to schedule a pre-op physical with your primary MD within 30 days of your surgery date. We ask that this is completed 2 weeks prior to surgery. Please fax preops to [phone] Nothing to eat or drink from midnight on the day of surgery. Please scrub surgical site the evening prior to your surgery. Refer to surgery packet for instructions. Washing your skin before surgery Do not clean shave any hair from your body 2 weeks before surgery. If you have a long vuong please trim prior to your surgery. If you are having a posterior cervical surgery your hair may need to be shaved at the surgery center. Please follow these steps during your Hibiclens showers: Two days before your surgery and one day prior to your surgery: ?? Take a shower, washing your body as usual. Turn off the shower and Apply plenty of Hibiclens*, a special pipe cleaner, to a clean, wet washcloth. Wash from your neck to your feet. Be sure to rinse off all the soap. ?? Avoid getting Hibiclens* in your eyes, nose, ears, or mouth. ?? Apply plenty of Hibiclens* to a wet washcloth. Gently lather the area of your body where you willhave the surgery for 5 minutes. ?? Do not scrub your skin with a brush. ?? Wash your hair with your usual shampoo. You can do this either in the evening or in the morning. ?? Dry your body with a newly washed towel. ?? Wear newly washed clothing and sleep in newly washed bedding. The morning of your surgery: ?? Take another shower following the steps above. ?? Dry your body with a newly washed towel. ?? Do not apply deodorant, lotions, creams, jewelry, or make-up. ?? Wear newly washed clothing. *Hibiclens is Chlorhexidine, an antiseptic that you rub on your skin. It destroys germs on the skin.It is used before surgery to reduce the risk of infection. Before using it, tell your doctor if you have any other medical conditions, especially skin problems or allergies, or if you are or nu rsing. Please arrange for transportation for the day you will be discharged, you will not be able to drive yourself home. Contact Information for Post Operative Care On between the hours of 8am-5pm, please call the Neurosurgery Clinic at [phone] if youhave any concerns related to your surgery before going to the Emergency Room, your family physician,or an Urgent Care. After hours call the [facility] at [phone]. PAIN MEDICATION POLICY The Department of Neurosurgery recognizes that adequate pain management is an important part of yoursurgical and recovery process. It is therefore, important that you are aware of our policies regarding dispensing prescriptive pain medications. This department does not prescribe pain medications in anticipation of surgery. Your primary care physician should manage your pain medication needs until surgery. Following surgery, you will be discharged with an appropriate prescription for pain medication depending on the severity of your surgery or injury. Our Neurosurgery team will manage your postoperative pain for a period of six- twelve weeks followingyour date of surgery or injury. You will then be asked to follow up with your primary care physicianor Pain clinic for further medical management. REFILL Policy for Prescriptions: Pain management will be addressed during your physician visit. Should you need a refill between office visits, you will need to allow twenty-four - forty-eight hours for this to occur. Please call during clinic hours only and before noon on Fridays. Your medical chart is not available for review during the evening or weekend. We do not refill prescriptions over the weekend. Under no circumstances will your prescription be refilled on a walk in basis in the clinic or duringweekend hours. Day of surgery, arrive at [facility] on 3rd floor 2 hours prior to surgery. The Same Day Surgery Nurses will call you 1-3 days prior to surgery to inform you what time you should arrive for your surgery. If they do not reach you, please call if your surgery is at [facility]. Review your surgery packet. Contact the Neurosurgery Center [phone] if you have any questions or concerns ENT [facility]GR documented in this encounter Progress Notes Pete Gonzalez MD - 01/17/2018 11:40 AM CST Surgery discussion This is a 52-year-old patient who has [...] several times and is now functioning normally. Total patient care time including face to face time was 15 minutes and greater than 50% of the timewas spent counseling and coordinating care. Voice recognition software was used for this statement, which is prone to typos and grammatical errors. ENT [facility]GR documented in this encounter Plan of Treatment Scheduled Referrals Name Type Priority Associated Diagnoses Order S chedule PRE-OP PAIN CONSULT Referral Routine Pseudarthrosis after fusion Ordered: 01/17/2018 - ADULT or arthrodesis documented as of this encounter Procedures Procedure Name Priority Date/Time Associated Diagnosis Comme nts MRSA/MSSA PRE-OP Routine 01/17/2018 1:48 PM Pseudarthrosis aft er Results for this CULTURE PATIENT [facility] MGR fusion or arthrodesis proced ure are in the results section. documented in this encounter Results MRSA/MSSA Pre-Op Culture (01/17/2018 1:48 PM PATIENT [facility]) Component Value Ref Test Analysis Performed At [facility] Range Method Time Signature Specimen Nose Swab [facility] Description LABORATORIES Special Unspecified [facility] Requests LABORATORIES Culture No Staphylococcus [facility] aureus Isolated LABORATORIES Report Status 01/18/2018 [facility] Final LABORATORIES Specimen Anatomical Collection Method Collection Time Receive d Time (Source) Location / / Volume Laterality Nasal swab taken NASAL STRUCTURE / 01/17/2018 1:48 PM 01/17/2018 1:49 (situation) Unknown PATIENT [facility] PM PATIENT [facility]GR Pete Gonzalez MD LAB_1 Performing Organization Address City/State/ZIP Code Phon e Number [facility] [phone] documented in this encounter Visit Diagnoses Diagnosis Pseudarthrosis after fusion or arthrodes is - Primary Arthrodesis status documented in this encounter Care Teams Clin Application Specialist Relationship Specialty Start Date End Date Jose Holden MD PCP - General Otolaryngology 12/14/17 [address] [place] [address] documented as of this encounter
--- OUTSIDE RECORDS SUMMARY | 2022-07-06 15:01 | XMS_ITS | Encounter Summary ---
:1965 Author Organization [facility] Address [address] [place] [address] Care Team Providers Name Role Phone Jose Holden MD Primary Care Provider [phone] Encounter Details Date Type Department Care Team Description 02/14/2018 [facility] Chava Simon, RN [place] [facility] Spine [address] [place] [id number] Social History Tobacco Use Types Packs/Day [...] encounter Nursing Notes Chava Simon RN - 02/14/2018 3:18 PM CDT Preop received and patient is clear for surgery. Chava Simon RN 02/14/2018, 3:19 PM Michael Cruz - 02/14/2018 10:04 AM CDT Patient calling in to verify if we have received her preop yet. Caddy Master relayed we have not. Patient was given [phone] to have preop be faxed to us. Patient states she already talked to them and they said they already sent it but she will reach out to them again. Will await a return call from patient/watch out for fax. Michael Cruz 02/14/2018, 10:06 AM Chava Simon RN - 02/14/2018 9:11 AM CDT I still have not received patient's preop from [facility]. Could you please call patient and make sure she has had it faxed to us? Chava Simon RN 02/14/2018, 9:11 AM documented in this encounter Plan of Treatment Not on filedocumented as of this encounter Visit Diagnoses Not on filedocumented in this encounter Care Teams Plater Hot Dip Relationship Specialty Start Date End Date Jose Holden MD PCP - General Otolaryngology 12/14/17 [facility] [place] [address] documented as of this encounter
--- OUTSIDE RECORDS SUMMARY | 2022-07-06 15:01 | XMS_ITS | Encounter Summary ---
:1965 Author Organization [facility] Address [address], [place] [address] Care Team Providers Name Role Phone Jose Holden MD Primary Care Provider [phone] Encounter Details Date Type Department Care Team Description 12/02/2017 Orders Only External to Pete Gonzalez MD [address] [place], [place] [address] (Wo rk) Social History Tobacco Use Types [...] 12/02/2017 12:00 AM Resul ts for this ICE RINK ATTENDANT procedure are i n the results section. documented in this encounter Results MRI SPINE--SCAN (12/02/2017 12:00 AM ICE RINK ATTENDANT) Anatomical Region Laterality Modality Other Specimen (Source) Anatomical Location Collection Method / Collectio n Time Received Time / Laterality Volume 12/02/2017 Narrative This result has an attachment that is no t available. Pete Gonzalez MD DUMMY/OTHER/AR documented in this encounter Visit Diagnoses Not on filedocumented in this encounter Care Teams Sewer Pipe Sorter Relationship Specialty Start Date End Date Jose Holden MD PCP - General Otolaryngology 12/14/17 [address] [place], [place] [id number] documented as of this encounter
--- OUTSIDE RECORDS SUMMARY | 2022-07-06 15:01 | XMS_ITS | Encounter Summary ---
:1965 Author Organization [facility] Address [address], [place] [address] Care Team Providers Name Role Phone Unassigned, Provider Primary Care Provider Unavailable Reason for Referral Procedure/Equipment (Routine) - Incomplete Specialty Diagnoses / Procedures Referred By Contact Refer red To Contact Diagnoses Screening procedure Pseudarthrosis after fusion or arthrodesis Pete Gonzalez MD Procedures FL Video Swallow Study [address] [place] [address] Referral ID Status Reason Start Date Expiration Date Visits V isits Requested Authorized [id number] Incomplete 11/29/2017 02/28/2019 1 1 herapies (Routine) - Closed Specialty Diagnoses / Procedures Referred By Contact Refer herson To Contact Diagnoses Pseudarthrosis after fusion or arthrodesis Screening procedure Pete Gonzalez MD [address] [place] [address] Referral ID Status Reason Start Date Expiration Date Visits Requ ested Visits Authorized [id number] Closed 11/29/2017 01/28/2018 1 1 Scheduling Instructions Your provider has recommended an appoint ment with a [facility] Therapist. Please stop at the clinic check out desk for as sistance with scheduling or if you prefer to call for your appointment you may call [facility] at [phone]. We suggest you call your [facility] insurance company about your coverage and benefits for this appointment. ING INTERN Consult/Transfer Care (Routine) - Closed Specialty Diagnoses / Procedures Referred By Contact Refer red To Contact Diagnoses Pseudarthrosis after fusion or arthrodesis Screening procedure Pete Gonzalez MD [address] [place] [address] Referral ID Status Reason Start Date Expiration Date Visits Requ ested Visits Authorized [id number] Closed 11/29/2017 02/28/2019 1 1 Scheduling Instructions Your provider has recommended an appoint ment with [facility]. You may call [phone], optio n [phone], to schedule your appointment. If you prefer, a payroll and benefits specialist will contact you heena hebert the next 3 business days to assist you in setting up this appointment. We suggest you call your health insurance company about your coverage and benefits for this appo intment. ING INTERN Procedure/Equipment (Routine) - Incomplete Specialty Diagnoses / Procedures Referred By Contact Refer red To Contact Diagnoses Screening procedure Pseudarthrosis after fusion or arthrodesis Pete Gonzalez MD Procedures XR Cervical Spine W Flex And Ext [address] [place] [address] Referral ID Status Reason Start Date Expiration Date Visits V isits Requested Authorized [id number] Incomplete 10/31/2017 01/30/2019 1 1 ING INTERN Reason for Visit Reason Comments SECOND OPINION Consult/Transfer Care (Routine) - Closed Specialty Diagnoses / Procedures Referred By Contact Refer red To Contact Neurosurgery Ihsan Brooke MD [facility] Neurosurgery/Ortho [address] [place] [address] [place] [address]. [place] [address] Phone: Fax: Referral ID Status Reason Start Date Expiration Date Visits Requ ested Visits Authorized [id number] Closed 09/26/2017 12/26/2018 1 1 Encounter Details Date Type Department Care Team Description 11/29/2017 Office Visit [facility], Pseudarthr osis after fusion or arthrodesis (Primary Dx); [facility] Cervical spondylosis with radiculopathy; Neurosurgery/Ortho [address] Bilater al occipital neuralgia; [address]ine [address] Screening procedure [address] [place] [address] [place] [address] [phone] Social History Tobacco Use Types Packs/Day Years Used Date Smoking Tobacco: Every Day Cigarettes 0.5 Smokeless Tobacco: Never Alcohol Use Standard Drinks/Week Comments No 0 (1 standard drink = 0.6 oz pure alcoho l) Sex Assigned at Date Recorded Not on file documented as of this encounter Last Filed Vital Signs Vital Sign Reading Time Taken Comments Blood Pressure 126/77 11/29/2017 10:21 AM EDITING INTERN Pulse 77 11/29/2017 10:21 AM EDITING INTERN Temperature - - Respiratory Rate - - Oxygen Saturation - - Inhaled Oxygen Concentration - - Weight 75.4 kg (166 lb 3.2 oz) 11/29/2017 10:21 AM EDITING INTERN Height 152.4 cm (5') 11/29/2017 10:21 AM EDITING INTERN Body Mass Index 32.46 11/29/2017 10:21 AM EDITING INTERN documented in this encounter Patient Instructions Patient InstructionsChava Simon RN - 11/29/2017 10:00 AM CST [facility] Patient Instructions Tests: You will be scheduled for a cervical MRI prior to your next appointment. You will be scheduled for a thoracic MRI. Referral: You have been referred to ENT for vocal cord analysis. You have been referred to Speech for swallow study Follow up: with Dr. Pete Gonzalez after all these appointments for surgery discussion If tests were ordered, they will be [...] your understanding. Please call the Neurosurgery Center [phone] with any further questions or concerns or if your symptoms worsen. Thank you for coming to see us today. We are your partner. ING INTERN documented in this encounter Progress Notes Lois Pham PA-C - 11/29/2017 10:00 AM CST NEW CONSULT Dr. GONZALEZ - NEURO/SPINE CC: Headaches, neck pain, arm pain HPI: nAgie Mosquera is a 52 y.o. old female who was seen today in the Neurosurgery Clinic. She is seen in evaluation as a second opinion from Dr. Ihsan Brooke. She has a history of multiple previous spine surgeries, including most recently a C6-T1 ACDF by Dr. Brooke just over a year ago for pseudoarthrosis C6-T1 after C3-T1 posterior cervical fusion done at [facility] in [place] multiple years ago. The T1 screws are loose, and C6 screws are through the facet. She states that after the posterior surgery she got somewhat better, but then felt like her neck would fall forward. She underwent the ACDF with Dr. Brooke, states she lost her voice x 3 months after. Reports she had a vocal cord analysis that was normal (no records). Also endorses significant dysphagia since surgery. Her biggest complaints today are headaches in the occiput that also radiate around the ears, as well as neck pain/tightness, and pain into the BUE R slightly > left. She also has many other issues including fibromyalgia and a left shoulder issue that she states she is going to undergo arthroplasty for. She complains of pain into theBUE, the whole arm. Had CTS which helped symptoms somewhat, but persist. She states she sleepwalks and has falls sleepwalking but otherwise does not sound to have falls. Feels she has some dexterity issues when asked. She smokes approx 1/2ppd which is cut back for her. She uses medical cannabis and oxycodone 25mg/day total. She has previously been on fentanyl, ms contin and oxycontin in [place]. PSURGHX:No past surgical history on file. PMEDHX:No past medical history on file. MEDICATIONS: Outpatient Prescriptions as of 11/29/2017: benzonatate (TESSALON) 100 MG capsule Take 100 mg by mouth. Note (11/29/2017): Received from: [facility] Received Sig: Take 1 capsule by mouth 3 times daily if needed for Cough. Disp: Rfl: budesonide-formoterol (SYMBICORT) 160-4.5 MCG/ACT inhaler Inhale 2 Puffs. Note (11/29/2017): Received from: [facility] Received Sig: INHALE 2 PUFFS BY MOUTH TWICE DAILY Disp: Rfl: diazePAM (VALIUM) 10 MG tablet Note (11/29/2017): Received from: External Pharmacy Disp: Rfl: DULERA 200-5 MCG/ACT inhaler Note (11/29/2017): Received from: External Pharmacy Disp: Rfl: erythromycin 5 MG/GM (0.5%) eye ointment Note (11/29/2017): Received from: External Pharmacy Disp: Rfl: esomeprazole (NEXIUM) 40 MG capsule Note (11/29/2017): Received from: External Pharmacy Disp: Rfl: ESTRACE VAGINAL 0.1 MG/GM vaginal cream Note (11/29/2017): Received from: External Pharmacy Disp: Rfl: estradiol (VIVELLEDOT) 0.05 MG/24HR biweekly patch Note (11/29/2017): Received from: [facility] Rfl: furosemide (LASIX) 20 MG tablet Note (11/29/2017): Received from: External Pharmacy Disp: Rfl: hydrocortisone 2.5 % cream Note (11/29/2017): Received from: External Pharmacy Disp: Rfl: lamoTRIgine (LAMICTAL) 200 MG tablet Note (11/29/2017): Received from: External Pharmacy Disp: Rfl: LATUDA 80 MG tablet Note (11/29/2017): Received from: External Pharmacy Disp: Rfl: LYRICA 150 MG capsule Note (11/29/2017): Received from: External Pharmacy Disp: Rfl: methocarbamol (ROBAXIN) 500 MG tablet Note (11/29/2017): Received from: External Pharmacy Disp: Rfl: NICOTINE 10 MG inhaler Note (11/29/2017): Received from: External Pharmacy Disp: Rfl: oxyCODONE (ROXICODONE) 5 MG immediate release tablet Note (11/29/2017): Received from: External Pharmacy Disp: Rfl: potassium chloride (K-DUR,KLOR-CONM) 10 MEQ tablet Take 20 mEq by mouth. Note (11/29/2017): Received from: [facility] Received Sig: Take 20 mEq by mouth 2 times daily (Takes 2 x 10meq tablet = 20meq dose) Disp: Rfl: potassium chloride 10 MEQ controlled release capsule Note (11/29/2017): Received from: External Pharmacy Disp: Rfl: predniSONE (DELTASONE) 20 MG tablet Note (11/29/2017): Received from: External Pharmacy Disp: Rfl: sennosides-docusate sodium (SENNA-S,SENNA PLUS) 8.6-50 MG per tablet Take 1 Tab by mouth. Note (11/29/2017): Received from: [facility] Received Sig: Take 1 tablet bymouth 2 times daily if needed for Constipation (Hold for loose stools). Disp: Rfl: topiramate (TOPAMAX) 25 MG tablet Note (11/29/2017): Received from: External Pharmacy Disp: Rfl: triamcinolone acetonide (KENALOG) 0.5 % ointment Note (11/29/2017): Received from: External Pharmacy Disp: Rfl: zonisamide (ZONEGRAN) 100 MG capsule Note (11/29/2017): Received from: External Pharmacy Disp: Rfl: No current facility-administered medications on file as of 11/29/2017. ALLERGIES: Allergies Allergen Reactions ??? Adhesive Other, [...] Rash ??? Cephalosporins Rash ??? Other Rash FAM HXNo family history on file. SOCIAL HX: Social History Social History ??? Marital status: N/A Spouse name: N/A ??? Number of children: N/A ??? Years of education: N/A Occupational History ??? Not on file. Social History Main Topics ??? Smoking status: Current Every Day Smoker Packs/day: 0.50 Types: Cigarettes ??? Smokeless tobacco: Never Used ??? Alcohol use No ??? Drug use: Not on file ??? Sexual activity: Not on file Other Topics Concern ??? Not on file Social History Narrative ??? No narrative on file ROS: Reviewed per [facility] Neurosurgery New Patient Health Packet History was reviewed in detail and forwarded to medical records for inclusion in chart. EXAM: General: in no acute distress. Alert and oriented HEENT: head normocepahlic, eyes sclera clear. Incisions are well healed Speech:clear, phonation intact with ee and aa Respiratory: Breathing unlabored Gait normal Tandem Gait: Normal Pronator drift: not performed. Rapid alternating movement test: not performed. Hoffmans: negative, bilateral. Phalens: not performed Tinels : not performed Romberg sign:not performed. Clonus: not performed. R UE Biceps 1+, Brachioradialis 1+. L UE Biceps 1+, Brachioradialis 1+. Cranial Nerves: Grossly intact Manual Motor Testing Motor Strength Upper extremities: Right Left--limited by shoulder pain C5 Deltoids: 5/5 4/5 C6 Biceps: 5/5 4/5 C7 Triceps: 5/5 4/5 C8 Finger flexors/movie shot cameraman: 5/5 5/5 T1 Intrinsics: 5/5 5/5 Sensation: Intact with light touch bue/ble. Skin: Warm to touch to bilateral upper/lower extremities. No skin rashes or lesions noted RADIOLOGY: Personally reviewed CT scans from OSH as well as XR from here. No formal report for either available. Shows previous C3-T1 posterior fusion, appears fused C3-C6, screws at T1 appear lose. Q6xbsutt through the facet joint. ASSESSMENT: 52 year old female s/p multiple previous cervical spine surgeries including C3-T1 posterior fusion (done in [place] approx 6 years ago), with C6-T1 pseudoarthrosis, s/p C6-T1 ACDF approx [address] Ihsan Brooke, still with pseudoarthrosis; ongoing neck pain and radicular pain Occipital neuralgia Dysphagia Dysphonia post op RECOMMENDATIONS: We discussed there are not really conservative measures which will alleviate symptoms. Discussed that surgery would be a large procedure and with significant risk given previous surgeries. We discusseda T1-2 ACDF, removal of plate C6-T1, and C2-T2/3 posterior fusion. C2-3 fusion would address occipital neuralgia type headaches, and remainder of fusion would be to address pseudoarthrosis C6-T1. The risks of surgery include worsened dysphagia, injury to the vessels and structures in the neck, adjacent segment disease, hoarseness secondary to recurrent laryngeal nerve palsy, durotomy and CSF leak, injury to the spinal cord, injury to the nerve roots, infection, bleeding, and risks of general anesthesia. We would need a ENT vocal cord eval, swallow eval, and cervical/thoracic MRI prior to surgery todetermine exact stopping level based on degree of degeneration. She would also need a POPC. She would like to undergo testing and then further discuss surgery in clinic. Follow up with Dr. Gonzalez for surgery discussion after testing complete. Patient was seen in collaboration with Dr. Gonzalez, and we discussed the plan in full. We reviewed the current imaging with the patient using anatomical models to explain the pathophysiology and surgical and non-surgical treatment options for Angie Mosquera's condition. Total time spent with the patient was 45 minutes of which more than 50% was used in counseling time,including discussion of prognosis and various surgical and non-surgical treatment options and associated risks. Patient is in agreement with this plan. Questions and concerns were addressed. Patient was instructed to call our office sooner with any change or increase in symptoms. Follow up after testing completed. Please send a copy of the chart to: Ihsan Brooke MD [id number] [id number] Lois Pham PA-C, 11/29/2017, 12:34 PM ING INTERN documented in this encounter Plan of Treatment Scheduled Referrals Name Type Priority Associated Diagnoses Order S chedule Otolaryngology Consult Referral Routine Pseudarthrosis aft er Ordered: Adult/Peds fusion or arthro desis 11/29/2017 Screening procedure Speech Therapy Referral Routine Pseudarthrosis after Order ed: fusion or arthro desis 11/29/2017 Screening procedure documented as of this encounter Results FL Video Swallow Study (12/26/2017 1:03 PM EDITING INTERN) Anatomical Region Laterality Modality Neck, Chest Radio Fluoroscopy Specimen (Source) Anatomical Collection Method Collection Time Re ceived Time Location / / Volume Laterality 12/26/2017 1:03 PM EDITING INTERN Narrative 12/26/2017 6:00 PM EDITING INTERN [place] VIDEO SWALLOW STUDY 12/26/2017 1:03 PM INDICATION: [...] note might be different from the original. [place] VIDEO SWALLOW STUDY 12/26/2017 1:03 PM INDICATION: [...] for additional details. Pete Gonzalez MD RAD FL XR Cervical Spine W Flex And Ext (11/29/2017 9:54 AM EDITING INTERN) Anatomical Region Laterality Modality Spine, C-Spine, Neck Computed Radiograph y Specimen (Source) Anatomical Collection Method Collection Time Re ceived Time Location / / Volume Laterality 11/29/2017 9:54 AM EDITING INTERN Narrative 11/29/2017 10:59 AM EDITING INTERN XR CERVICAL SPINE W FLEX AND EXT [...] or arthrodes is - Primary Arthrodesis status Cervical spondylosis with radiculopathy (HRC) Cervical spondylosis with myelopathy Bilateral occipital neuralgia Screening procedure Screening for unspecified condition Screening procedure Screening for unspecified condition Screening procedure Screening for unspecified condition Pseudarthrosis after fusion or arthrodes is Arthrodesis status documented in this encounter Care Teams Pipeline Construction Inspector Relationship Specialty Start Date End Date Unassigned, Provider PCP - General 08/05/03 12/13/[address] [place] [phone] documented as of this encounter
--- OUTSIDE RECORDS SUMMARY | 2022-07-06 15:01 | XMS_ITS | Encounter Summary ---
:1965 Author Organization [facility] Address [address] [place] [address] Care Team Providers Name Role Phone Jose Holden MD Primary Care Provider [phone] Reason for Visit Reason Comments Other Encounter Details Date Type Department Care Team Description 01/17/2018 Telephone [facility] Neuroscience Chava Simon RN Other Center Neurosurgery/ Ortho Spine [address] [place] [address]. [place] [address] Social History Tobacco Use Types Packs/Day Years Used Date Smoking Tobacco: Every Day Cigarettes 0.5 30 Smokeless Tobacco: Never Comments: 30 year smoker on and off Alcohol Use Standard Drinks/Week Comments No 0 (1 standard drink = 0.6 oz pure alcoho l) Sex Assigned at Date Recorded Not on file documented as of this encounter Nursing Notes Chava Simon RN - 01/18/2018 8:42 AM CST XR printed for patient to pickler helper when she comes to clinic. Chava Simon RN 01/18/2018, 8:42 AM ON CUTTER Michael Cruz - 01/17/2018 3:46 PM CST Patient called in stating she will drop off her CD in clinic tomorrow. However she wants to make sure RADHA Bowie also has a copy of her neck pictures ready for her as well. Patient states she had alreadyspoken to RADHA Bowie about this. Please advise Michael Cruz 01/17/2018, 3:47 PM ON CUTTER documented in this encounter Plan of Treatment Not on filedocumented as of this encounter Visit Diagnoses Not on filedocumented in this encounter Care Teams Foundry Finisher Relationship Specialty Start Date End Date Jose Holden MD PCP - General Otolaryngology 12/14/[address] [facility] [place] [address] documented as of this encounter
--- OUTSIDE RECORDS SUMMARY | 2022-07-06 15:01 | XMS_ITS | Encounter Summary ---
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) Chronic neck pain Pete Gonzalez MD Procedures Case Request OR - Spine Surgery: FUSION ANTERIOR APPROACH CERVICAL SPINE C2-T3, FUSION POSTERIOR APPROACH CERVICAL SPINE C2-T3, REMOVAL HARDWARE SPINE Anterior plate, Posterior screws rods C2-T3, O-ARM [address] ADD ON (*), IMAGE GUIDANCE ADD ON SPINE (*) [place] [address] Referral ID Status Reason Start Date Expiration Date Visits V isits Requested Authorized [id number] Incomplete 01/25/2018 04/26/2019 1 1 SMELTER Encounter Details Date Type Department Care Team Description 01/25/2018 Prep for [facility] Pete Gonzalez, Cervical s pondylosis with radiculopathy (Primary Dx); Surgery [facility] Hardware failure of anterior column of s pine (HRC); Neurosurgery/Ortho [address] Chronic neck pain [address] [place] [address] [place] [address] [phone] Social History Tobacco Use Types Packs/Day Years [...] of this encounter Visit Diagnoses Diagnosis Cervical spondylosis with radiculopathy (HRC) - Primary Cervical spondylosis with myelopathy Hardware failure of anterior column of s pine (HRC) Chronic neck pain Cervicalgia documented in this encounter Care Teams Cyanide Furnace Operator Relationship Specialty Start Date End Date Jose Holden MD PCP - General Otolaryngology 12/14/17 [facility] [place] [address] documented as of this encounter
--- OUTSIDE RECORDS SUMMARY | 2022-07-06 15:01 | XMS_ITS | Encounter Summary ---
:1965 Author Organization [facility] Address [address] [place] [address] Care Team Providers Name Role Phone Jose Holden MD Primary Care Provider [phone] Encounter Details Date Type Department Care Team Description 02/07/2018 Telephone [facility] Neuroscience Chava Simon RN [place] Neurosurgery/ Ortho Spine [address] [place] [address]. [place] [address] Social History Tobacco Use Types Packs/Day Years Used Date Smoking Tobacco: Every Day Cigarettes 0.5 30 Smokeless Tobacco: Never Comments: 30 year smoker on and off Alcohol Use Standard Drinks/Week Comments No 0 (1 standard drink = 0.6 oz pure alcoho l) Sex Assigned at Date Recorded Not on file documented as of this encounter Nursing Notes Chava Simon RN - 02/08/2018 3:05 PM CDT Noted. Will watch for preop note. Chava Simon RN 02/08/2018, 3:06 PM Chilo Holden - 02/08/2018 1:44 PM CDT Angie Mosquera returned call and stated that her pre-op is scheduled for 02/13/18 at [facility]. Clinic fax # was given. Patient will have clearance note faxed to clinic. Will post pone message to after the to check and see if pre-op has been received yet. Michael Cruz - 02/08/2018 1:37 PM CDT [facility] Michael Cruz 02/08/2018, 1:37 PM Michael Cruz Porfirio - 02/07/2018 11:27 AM CDT [facility] Michael Monroy Anthony 02/07/2018, 11:27 AM Chava Simon RN - 02/07/2018 10:44 AM CDT Patient is to have a preoperative evaluation done by his PCP prior to surgery. Please call patient and determine if a preop with PCP has been scheduled. If yes, please document when and where. If no, please assist patient with scheduling this appointment. Please also provide our fax number if necessary. Chava Simon RN 02/07/2018, 10:44 AM documented in this encounter Plan of Treatment Not on filedocumented as of this encounter Visit Diagnoses Not on filedocumented in this encounter Care Teams Restaurant Team Member Relationship Specialty Start Date End Date Jose Holden MD PCP - General Otolaryngology 12/14/17 [facility] [place] [address] documented as of this encounter
--- OUTSIDE RECORDS SUMMARY | 2022-07-06 15:01 | XMS_ITS | Encounter Summary ---
:1965 Author Organization [facility] Address [address], [place] [address] Care Team Providers Name Role Phone Jose Holden MD Primary Care Provider [phone] Reason for Visit Reason Comments QUESTIONS, GENERAL Encounter Details Date Type Department Care Team Description 01/25/2018 Telephone [facility] Pete Gonzalez MD QUESTIONS, GENERAL Neuro[facility] [address] [facility] Neurosurgery/Ortho [place], [place] [address] [address] [place] [address] [phone] Social History Tobacco Use Types Packs/Day Years Used Date Smoking Tobacco: Every Day Cigarettes 0.5 30 Smokeless Tobacco: Never Comments: 30 year smoker on and off Alcohol Use Standard Drinks/Week Comments No 0 (1 standard drink = 0.6 oz pure alcoho l) Sex Assigned at Date Recorded Not on file documented as of this encounter Nursing Notes Chava Simon RN - 01/25/2018 11:01 AM CST Patient informed that we did receive her MRI. Dr. Gonzalez did review it and did place her case request.She was informed that she should receive a call from the neurosurgery physician in the next 1-3 weeks to discuss her surgery/date. Patient stated understanding and will call with any updates or changes. Chava Simon RN 01/25/2018, 11:04 AM ESTATE VALUER [facility] 01/25/2018 10:56 AM CST Patient calling to speak to RN. Regarding her MRI scan. ESTATE VALUER documented in this encounter Plan of Treatment Not on filedocumented as of this encounter Visit Diagnoses Not on filedocumented in this encounter Care Teams Learning Officer Relationship Specialty Start Date End Date Jose Holden MD PCP - General Otolaryngology 12/14/[address] [place] [id number] documented as of this encounter
--- OUTSIDE RECORDS SUMMARY | 2022-07-06 15:01 | XMS_ITS | Encounter Summary ---
:1965 Author Organization [facility] Address [address] [place] [address] Care Team Providers Name Role Phone Jose Holden MD Primary Care Provider Encounter Details Date Type Department Care Team Description 01/20/2018 Telephone [facility] Chava Simon RN Center Neurosurgery/ Ortho Spine [address] [place] [address] Social History Tobacco Use Types Packs/Day Years Used Date Smoking Tobacco: Every Day Cigarettes 0.5 30 Smokeless Tobacco: Never Comments: 30 year smoker on and off Alcohol Use Standard Drinks/Week Comments No 0 (1 standard drink = 0.6 oz pure alcoho l) Sex Assigned at Date Recorded Not on file documented as of this encounter Nursing Notes Chava Simon RN - 01/25/2018 8:24 AM CST Case request placed. Chava Simon RN 01/25/2018, 8:24 AM IRER Chava Simon RN - 01/24/2018 12:[address] Gonzalez reviewed imaging and is waiting until appropriate time to place case request. Chava Simon RN 01/24/2018, 12:45 PM IRER [facility] - 01/20/2018 11:21 AM CST Patient called to speak to RN. She has a new phone number. Please call her at [phone]. thanks IRER Chava Simon RN - 01/20/2018 11:15 AM CST Images from the original note were not included. Team please have Dr. Gonzalez review imaging which is now on PACs and place case request. Chava Simon RN 01/20/2018, 11:18 AM IRER documented in this encounter Plan of Treatment Not on filedocumented as of this encounter Visit Diagnoses Not on filedocumented in this encounter Care Teams Dog Or Animal Sitter Relationship Specialty Start Date End Date Jose Holden MD PCP - General Otolaryngology 12/14/[address] [place], [place] [address] [address] documented as of this encounter
--- OUTSIDE RECORDS SUMMARY | 2022-07-06 15:29 | XMS_ITS | Continuity of Care Document ---
:1965 Author Organization [facility] Address [address] [address] [place] [address] Phone Care Team Providers Name Role Phone Nilay Perry MD Unavailable Unavailable Advance Directives Directive Yes / No Effective Date File Name No Information Encounters Encounter Practice Location Reason(s) Diagnoses Date Provider Provide rs Description For Visit Copied on Encounter [facility] No [place] FAULKNER Referring [facility] Nilay. Provider: [facility] [place] [address] [facility] [address], Fredis DILLON MD, [address] [facility] [address], [place], [place], [facility] [address], [id number], [place], [place], [facility] [id number], [place], [address]. tel:[phone] . tel:[phone] tel:[phone] Family History Family Member Type Diagnosis Age At Onset No Information Payers Payer name Insurance type Covered alliance party ID Authorization(s ) [place] Medical Assistance [id number] Social History Type Description Quantity Date Captured Comments Sex Female Smoking Status No Information Chief Complaint And Reason For Visit No Information Reason For Referral Reason For Referral No Information Plan Of Treatment Date Type Action Status No Information History Of Present Illness Encounter Date Complaint History Of Present I llness No Information Functional Status Date Functional Assessment No Information Instructions Date Instruction Additional Informati on No Information Assessments Type Assessment Date No Information Patient Care Teams Name Effective Dates (start - stop) Status M carmita No Information
--- OUTSIDE RECORDS SUMMARY | 2022-07-06 15:29 | XMS_ITS | Continuity of Care Document ---
:1965 Author Organization [facility] Address [address] [place] [address] Phone Care Team Providers Name Role Phone Su Dang OD Unavailable Unavailable Allergies, Adverse Reactions, Alerts Substance Reaction Status Criticality acyclovir Unknown Active No Information amoxicillin Unknown Active No Information cefaclor Unknown Active No Information Medications Medication Instructions Dosage Effective Dates Status Comment s (start - stop) Estraderm 0.1 mg/24 hr - Active Transderm Patch Amitriptyline 50 mg Tab 1 by mouth daily - Active Pepcid AC 10 mg Tab - Active Estradiol 0.1 mg/24 hr - Active Weekly Transderm Patch Singulair 10 mg Tab 1 by mouth daily - Active Jacy 180 mg Tab 1 by mouth daily - Active Prozac 40 mg Cap - Active Advance Directives Directive Yes / No Effective Date File Name No Information Encounters Encounter Practice Location Reason(s) Diagnoses Date Provider Provide rs Description For Visit Copied on Encounter [facility] [place] Referring Person [facility] Information -[facility] Su. Provider : Artuhr [address] [place], [address], [address] [facility], [place], [place], [place], [id number], [place], [id number], . [address]. tel:[phone] tel:[phone] tel:[phone] [facility] Blurred No Adalberto Referring [facility] Information -2007 Deep. Provider: Arthur, (chief [address]) [address] [facility], [address], [address], [place], [place], [place], [place], [place], [place], [id number], [place], [id number], . [address]. tel:[phone] tel:[phone] tel:[phone] Family History Family Member Type Diagnosis Age At Onset No Information Payers Payer name Insurance type Covered republican ID Authorization(s ) No Information Social History Type Description Quantity Date Captured [...] Effective Dates (start - stop) Status M embers No Information
--- OUTSIDE RECORDS SUMMARY | 2022-07-06 15:29 | XMS_ITS | Continuity of Care Document ---
:1965 Author Organization [facility] Address [address] [place] [address] Phone Care Team Providers Name Role Phone ZProvider, Conversion Unavailable Unavailable Procedures Procedure Date BMI >=30 calcuate w/followup Dxa Bone Density, Axial DXA BONE DENSITY/PERIPHERAL Dxa Bone Density, Vert Fx ROUTINE VENIPUNCTURE TOBACCO USE TXMNT COUNSELING BMI >=30 calcuate w/followup Advance Directives Directive Yes / No Effective Date File Name No Information Encounters Encounter Practice Location Reason(s) Diagnoses Date Provider Provide rs Description For Visit Copied on Encounter [facility] No Information Nov- ZProvider Arthritis Chandler [address] [place] 4 . . Rheumatolo gy, [address] [facility], [place], [place], [id number], [place] tel:[phone] [facility] TOBACCO USE Apr-1 Michele Arthritis DISORDEROBESITY [address] Nara. And NOSOSTEOPOROSIS NOS [address], gy, [address], [place], [id number], [place], [place]. [id number], tel:[phone] tel:[phone] [facility] Age-related Apr-0 ZProvider Arthritis Chandler osteoporosis w/o [address] Con[address] [place] current 4 . . Rheumatolo pathological gy, [address] [place] [id number], [place] tel:[phone] [facility] OBESITY NOSTOBACCO Mar-2 ZProvider Arthritis USE [address] And DISORDEROSTEOPOROSI 4 . . Rheumatolo S NOSMALAISE AND gy, [address], [place], [place], [id number], [place] tel:[phone] [place] NEPTALI [place] Tobacco useObesity, Mar-2 Michele Arthritis unspecifiedAge-rela Nara. And mary osteoporosis 4 [address]o [address], gy, [address], [address] [place], [address], [place], [place], [id number], [place], [place]. [id number], tel:[phone] tel:[phone] Family History Family Member Type Diagnosis Age At Onset Problem (finding) Mother Problem (finding) The patient reports no changes except otherwise noted during the prese nt visit Problem (finding) Father living Problem (finding) Osteoporosis Problem (finding) Number of Sisters Problem (finding) Number of Brothers Payers Payer name Insurance type Covered green party ID Authorization(s ) No Information Social History Type Description Quantity Date Captured Comments Alcohol Use Details Unknown Caffeine Use Details Unknown Tobacco Use Status No Information Smoking Status No Information Sex Female Chief Complaint And Reason For Visit No Information Plan Of Treatment Date Type Action Status No Information History Of Present Illness Encounter Date Complaint History Of Present I llness No Information Instructions Date Instruction Additional Informati on Will need a DXA/VFA for accurate Related to Age-related osteoporosis measurement of BMD to direct w/o current pathological fracture treatment. Will measure l spine, hip and forearm as suspect L spine measures may not reflect real BMD. Will also obtain osteoporosis labs. She can d/c Forteo for now until we have clarity on her diagnosis.Return to clinic 3 weeks. Will need a DXA/VFA for accurate Related to OSTEOPOROSIS NOS measurement of BMD to direct treatment. Will measure l spine, hip and forearm as suspect L spine measures may not reflect real BMD. Will also obtain osteoporosis labs. She can d/c Forteo for now until we have clarity on her diagnosis.Return to clinic 3 weeks. Will need a DXA/VFA for accurate Related to Age-related osteoporosis measurement of BMD to direct w/o current pathological fracture treatment. Will measure l spine, hip and forearm as suspect L spine measures may not reflect real BMD. Will also obtain osteoporosis labs. She can d/c Forteo for now until we have clarity on her diagnosis.Return to clinic 3 weeks. Assessments Type Assessment Date No Information
--- OUTSIDE RECORDS SUMMARY | 2022-07-06 15:29 | XMS_ITS | Continuity of Care Document ---
:1965 Author Organization [facility] Address [address] [place] [address] Care Team Providers Name Role Phone Mor Singleton CRNA Unavailable Unavailable Procedures Procedure Date ANESTH, HEAD/NECK/PTRUNK ANESTH PERC IMG TX SP PROC ANESTH PERC IMG TX SP PROC Advance Directives Directive Yes / No Effective Date File Name No Information Encounters Encounter Practice Location Reason(s) Diagnoses Date Provider Provide rs Description For Visit Copied on Encounter [facility] No Areli Referring [facility] Mor. Provider: Lois CISNEROS Surgery [address] [place] [address], [facility] [address] [place] [id number], [facility], [place], [place], [place], [place], [id number], [address] [place]. . tel:[phone] tel:[phone] [facility] No [facility] Referring Anesthesia [facility] -2019 Nilay. Provider: Lois CISNEROS Surgery [address] [facility], [facility] [place], [address] [id number], [id number], [facility]. [facility] tel:[phone], [place], [id number] . tel:[phone] [facility] No [facility] Referring Anesthesia [facility] -2019 Nilay. Provider: PA, [address] [facility] [address], [place], Endy J, [place], [place], [place], [address] [facility] [id number], [id number], John, [facility]. Denisa tel:[phone], [place], [id number] . tel:[phone] Family History Family Member Type Diagnosis Age At Onset No Information Payers Payer name Insurance type Covered constitution party ID Authorization(s ) Medicare MB [id number] [facility] [id number] Social History Type Description Quantity Date Captured [...]
--- OUTSIDE RECORDS SUMMARY | 2022-07-06 15:29 | XMS_ITS | Continuity of Care Document ---
:1965 Author Organization [facility] Address [address] [place] [address] Care Team Providers Name Role Phone [facility] Unavailable Unavailable Procedures Procedure Date IMPLANT NEUROELECTRODES IMPLANT NEUROELECTRODES INSRT/REDO SPINE N GENERATOR Implt neurostim elctr each FLUOROGUIDE FOR SPINE INJECT Inj, bupivacaine liposome IMPLANT NEUROELECTRODES Pt doc no events on discharg Pt w/o preop order iv ab pro IMPLANT NEUROELECTRODES Implt neurostim elctr each IMPLANT NEUROELECTRODES Pt doc no events on discharg Pt w/o preop order iv ab pro FLUOROGUIDE FOR SPINE INJECT FLUOROGUIDE FOR SPINE INJECT IMPLANT NEUROELECTRODES IMPLANT NEUROELECTRODES Removal of spinal neurostimulator REVISE/REMOVE NEURORECEIVER Inj, bupivacaine liposome Pt doc no events on discharg Pt w/o preop order iv ab pro Advance Directives Directive Yes / No Effective Date File Name No Information Encounters Encounter Practice Location Reason(s) Diagnoses Date Provider Provide rs Description For Visit Copied on Encounter [facility] Provider: Surgery Surgery Surgery [facility]. David, [address], [place], [place], [place] [id number], [place], [place], , [place], [place] [id number], [address]. [place]. tel: [phone] [facility] Twin Referring [address] Provider: Surgery Surgery Surgery [facility]. David, [address], [place], [place] [id number], [place], [place], , [place] [id number], [id number]. [place]. tel: tel:[phone] [facility] [address] Provider: Surgery Surgery Surgery [facility]. Jose [address] [facility] [address], [facility], [place], [place] , [place], [id number], [place], [address]. [place] [id number], tel: [phone] tel:[phone] Family History Family Member Type Diagnosis Age At Onset No Information Payers Payer name Insurance type Covered republican ID Authorization(s ) Medicare [id number] [facility] [id number] Social History Type Description Quantity Date Captured [...]
--- OUTSIDE RECORDS SUMMARY | 2022-07-06 15:30 | XMS_ITS | Clinical Summary ---
:1965 Author Organization [facility] Address [address] [place] [address] Care Team Providers Name Role Phone Elsewhere, Pcp Primary Care Provider Unavailable Source Comments Patient records contain information from all sites at [facility]. For routine questions regarding patient records, call [phone] during business hours, M-F 8:00 AM - 5:00 PM Central Time. Record requests for emergency care only can be directed to [phone] at any time.[facility] Allergies Active Allergy Reactions Severity Noted Date [...] 10/13/2017 Other lashaun ction(s): (see comments) Contact [place] titis Gabapentin Other (see comments) Low 05/12/2017 [...] multivit-min/iron/fo Take 1 tablet by 0 Active lic/qos737 (HAIR, mouth daily. SKIN AND NAILS ADVANCED ORAL) sennosides-docusate Take 1 tablet by 0 Active sodium (SENOKOT-S) mouth 2 (two) 2 8.6-50 mg per tablet times a day. aspirin 325 mg Take 1 tablet 0 A ctive tablet (325 mg total) by 2 mouth every evening. 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 06/15/2022 Ancillary Procedure Radiology Demarcus Ernst Arriv ed Lilian Diaz 06/15/2022 Ancillary Procedure Radiology Demarcus Ernst ed Lilian Diaz 06/15/2022 Emergency Emergency Medicine Claudine Tony General (Primary Dx); Scooter P, Incontinence Ur inary; MALARIOLOGIST, C.N.P. Pain Back; Ataxia 06/15/2022 Clinical Neurology Robert Diehl Followup ([facility] Communication Lilian Celaya Patient/) 06/10/2022 Clinical Orthopedic Surgery Cyrus Polk xray re sults Communication Lilian Souza 06/03/2022 Clinical Orthopedic Surgery Cyrus Polk Post-op Problem Communication Lilian Souza 05/19/2022 Clinical Neurology Robert Diehl [facility] presc ription Communication Lilian Celaya 05/18/2022 Surgery Cyrus [...] Jenna Porter M.D. Preoperative Exam Jose Bernstein, Yomi.GSharita., L.I.C.S.W. 05/12/2022 Clinical Orthopedic Cyrus Hastings Pre-vis it Intake Communication Lilian Souza 05/11/2022 Clinical Orthopedic Cyrus Hastings Communication Lilian Souza 05/07/2022 Clinical Orthopedic Surgery Cyrus Polk Pre-vis it Testing Communication Lilian Souza Orders 05/06/2022 Clinical Orthopedic Surgery Kaushik Portillo Dischar Planning Communication R.NBritton (Discharge Ryan nning) 05/03/2022 Comprehensive Visit Anesthesiology CarynShauna Ane vera NIKKY Diaz C.N.Hema, M.S.N. Peter Tse R.N. 05/03/2022 Hospital Encounter Laboratory Medicine CarynShauna Anemia NIKKY Diaz C.NCristiana, M.S.N. 04/22/2022 Orders Only Anesthesiology Caryn Shauna Anemia (Pr imary Dx) NIKKY Diaz C.N.Hema, M.S.N. 04/22/2022 Clinical Orthopedic Surgery Cyrus Polk pre op orders Communication Lilian Souza 04/21/2022 Clinical Orthopedic Surgery Cyrus Polk M.D. 04/14/2022 Hospital Encounter Radiology Alfredo Herrera Painful Total Joint A, O.P.A.-C. Arthroplasty In [facility] ([facility]) 04/14/2022 Hospital Encounter Laboratory Medicine Alfredo Herrera rthroplasty Total Shoulder Replacement Status Post Left; A, O.P.A.-C. Painful Total J oint Arthroplasty Initial ([facility]) 04/14/2022 Procedure visit Orthopedic Surgery Jey Monzonf ul Total Joint Lilian Celaya Arthroplasty In [facility] ([facility]) 04/02/2022 Office Visit Orthopedic Surgery Cyrus Polk Arthrop lasty Total Shoulder Replacement Status Post Left; Lilian Souza Painful Total J oint Arthroplasty Initial ([facility]) 04/02/2022 Hospital Encounter Radiology Alfredo Herrera Arthropl asty Total A, O.P.A.-C. Shoulder Replac ement Status Post Lef t 04/02/2022 Clinical Orthopedic Cyrus Hastings pre op orders Communication Lilian Souza 03/19/2022 Clinical Orthopedic Surgery Cyrus Polk M.D. 03/16/2022 Clinical Orthopedic Surgery Cyrus Polk [...] you attend sikhism or Patient refused 2021 gnosticism services? Do [...] 09/11/2021, 09/13/2020 Medical Devices Implanted Type Area Land Leasing Information Clerk Device Shelf Model / Identifier Expiration Serial / Date Lot Cmnt Bn Smp 20gm - [id number] Bone Cement Left: [place] [id number] / Implanted: Qty: 1 on 12/30/2021 by Cyrus Panchal M.D. at [facility] Shoulder / Grft Dbm Grf Obl Ld 15 - [id number] - [id number] Bone or Tis lebron Left: Medtronic 10/14/2023 [id number] / Implanted: Qty: 1 on 02/26/2022 at [facility] Shoulder [id number] / 4mm Amplatz Micro Plug Embolization Brain Amplatzer [id number] / Implanted: Qty: 1 on 02/16/2021 by Mustapha Posey M.D. at [facility] Coil Managed Care Provider / Dayo [id number] Description: MRI Conditional at 1.5T or 3T Max Whole Body YUSEF of 4 W/kg. AAC 2020 [email or web address] Hardware E.G. Hardware e.g. Neck Pins/Screws/Rods pins/screws/rods Scrw Cmp Pthrd 6.5x25 - [id number] Hardware e.g. Left: Trevor B iomet 12/29 [id number] / Implanted: Qty: 1 on 02/26/2022 at [facility] pins/screws/rods Shoulder 05/17 [id number] Knee Implant Knee Implant Bilateral: Knee Plg Ocl Amp Avpii 6 - [id number] Mesh or Patch Pedersen 07/31 [id number] / Implanted: Qty: 1 on 02/16/2021 by Mustapha Posey M.D. at [facility] [id number] Shoulder Implant Shoulder Implant Left: Shoulder Bsplt Glnd Cmp Rv Aug Sm - [id number] Shoulder Implant Left: Trevor Biomet 01/26 [id number] / Implanted: Qty: 1 on 02/26/2022 at [facility] Shoulder [id number] [facility] Rvrs Prim Mini 9 - [id number] Shoulder Implant Le ft: Trevor Biomet 08/28 [id number] / Implanted: Qty: 1 on 05/18/2022 by Cyrus Panchal M.D. at [facility] Shoulder 02/14 [id number] Medtronic Spinal Cord Stimulator Spinal Cord Back Medtronic [id number] / Implanted: 06/30/2020 (Quantity not on file) Stimulator [id number] / [id number] Description: PT got new spinal cord stim ulator planted . Patient states she fell and the old stimulator broke, so she had the new Medtronic device put in. 1.5T Normal/ Normal, patient has to have a remote and device needs to be put in MRI Mode prior to MRI as of 03-19-21 SDN Explanted Type Area Land Leasing Information Clerk Device Shelf Model / Identifier Expiration Serial / Date Lot [facility] Vrs Dl [id number] - [id number] Shoulder Left: Trevor Biom et 05/29/2031 [id number] / Implanted: Qty: 1 on 12/30/2021 by Cyrus Panchal M.D. at [facility] Implant Shoulder / Explanted: Qty: 1 on 02/26/2022 at [facility] [id number] [facility] Prim Std 10 - [id number] Shoulder Left: Zi mmer Biomet 12/16/2029 [id number] / Implanted: Qty: 1 on 02/26/2022 at [facility] Implant Shoulder / Explanted: Qty: 1 on 05/18/2022 at [facility] [id number] Spinal Cord Stimulator Spinal Cord Pelvis Nevro Explanted: 03/10/2020 (Quantity not on file) Stimulator Description: Device was explanted on 02-26 per Nevro Support. SDN 03-19-21 Procedures The patient is currently admitted. The information in this section might not be complete until the patient is discharged. Procedure Name Priority Date/Time Associated Comments Diagnosis SARS CORONAVIRUS 2, STAT 06/15/2022 7:51 PCR RAPID, V PM CDT CT HEAD NECK RAD - Semiurgent 06/15/2022 [...] procedu re are in the results section. MS US GUIDE PLC NDL Routine 05/18/2022 11:24 Resu lts for AM CDT this procedure are in the results section. MS INJ ANES BRACHIAL Routine 05/18/2022 11:24 Res [...] pr ocedure are in the results section. MS ARTHCS ASP/INJ Routine 04/14/2022 9:30 Painful Total [...] Neuroradiology ARZ LOS, Neuroradiology T omography FLA [facility] Specimen (Source) Anatomical Collection [...] 2H/6H, 5th Gen (06/15/2022 2:48 PM CDT) [facility] Method Time Signature Troponin T, 2 <6 <=10 ng/L 06/15/2022 [facility] hr, 5th gen 3:54 PM CDT 2H Delta 0 ng/L 06/15/2022 [facility] 3:54 PM CDT 2H Delta Not Changing 06/15/2022 [facility] Interp 3:54 PM CDT Troponin T, 6 CANCELED ng/L 06/15/2022 [facility] hr, 5th gen 3:54 PM CDT Comment: Result canceled by the theo y. Specimen Anatomical Collection Method Collection Time Receive d Time (Source) Location / / Volume Laterality Blood (Blood, 06/15/2022 2:48 PM 06/15/20 3:21 Venous) CDT PM CDT Narrative [facility] [place] - 06/15/2022 3:54 PM CDT Specimen Information: Specimen ID: [id number] Specimen Type: Blood Specimen Collection Start Date: 06/15/20 ??2:48 PM Specimen Received Date: 06/15/2022 ??3:2 1 PM Specimen ID: [id number] Specimen Type: Blood Specimen Collection Start Date: 06/15/20 ??3:53 PM Specimen Received Date: 06/15/2022 ??3:5 3 PM Demarcus Ernst M.D. LAB BLOOD TROPONIN Performing Organization Address City/State/ZIP Code Phon e Number [facility] - [address] [place], [place] [address] [facility] [place] [address] [facility] [address] DX Hip And Pelvis Left 2-3 Views [...] hip chondrocalcinosis. No fracture. Scooter Tony APRN, C.N.P. IMG DIAGNOSTIC IMAGING PROCEDURES ECG 12 Lead (06/15/2022 1:35 PM CDT) P athologist Signature Ventricular Rate 58 BPM MUSE ECG/Min MS Interval 154 ms MUSE QRSD Interval 102 ms MUSE QT Interval 442 ms MUSE QTC Interval 433 ms MUSE P [place] 48 degrees MUSE R [place] -1 degrees MUSE T Wave [place] 38 degrees MUSE Specimen Anatomical Collection Method [...] Signature Troponin T, <6 <=10 ng/L 06/15/2022 [facility] Baseline, 5th 1:37 PM CDT gen Specimen Anatomical Collection Method Collection Time Receive d Time (Source) Location / / Volume Laterality Blood (Blood, 06/15/2022 12:37 06/15/2022 1:03 Venous) PM CDT PM CDT Demarcus Ernst M.D. LAB BLOOD TROPONIN Performing Organization Address City/State/ZIP Code Phon e Number [facility] - [address] [place], [place] [address] [place] [address] [facility] [address] (ABNORMAL) Hepatic Function Panel (06/15/2022 12:37 PM [...] City/State/ZIP Code Phon e Number [facility] - [address] [place], [place] [address] [facility] [address] [facility] 200 [facility] (ABNORMAL) CBC with Differential, Blood (06/15/2022 12:36 PM CDT)Only the most recent of4 resultswithin the time period is included. [facility] Method Time Signature Hemoglobin 10.4 (L) 11.6 [...] City/State/ZIP Code Phon e Number [facility] - [address] [place], [place] [address] [facility] [address] [facility] [address] [place] [address] [facility] [address] Basic Metabolic Panel (06/15/2022 12:36 PM [...] CDT eGFR-Black/Afri >90 >=60 06/15/2022 [facility] can Cypriot mL/min/BSA 1:34 PM CDT Comment: ----ADDITIONAL INFORMATION---- [...] City/State/ZIP Code Phon e Number [facility] - [address] [place], [place] [address] [place] [address] [facility] [address] Prothrombin Time (PT) (06/15/2022 12:34 PM CDT) P athologist Signature Prothrombin 10.2 9.4 - 12.5 06/15/2022 [facility] Time, P sec 1:10 PM CDT INR [...] City/State/ZIP Code Phon e Number [facility] - [address] [place], [place] [address] [facility] [address] [facility] [address] SW Interpretation of Outside CT Spine (06/15/2022 12:27 [...] re and osteopenia. Demarcus NIELSON CT PROCEDURES Interpretation of Outside CT Head [...] System IMG CT PROCEDURES Performing Organization Address City/[facility] Code Phon e Number IIMS IIMS NA [...] DIAGNOSTIC IMAGING PROCE DURES Performing Organization Address [facility] Phon e Number IIMS IIMS NA DX [...] purposes. Jenna Zaldivar M.D. IMG DIAGNOSTIC IMAGING [facility] Surgical Pathology, Frozen Lab (05/18/2022 1:04 PM CDT) Component Value Ref Test Analysis Performed At [facility] gist Range Method Time Signature 05/20/2022 METH 11:46 [...] City/State/ZIP Code Phon e Number [facility] - [address] [place], [place] [address] [facility] [address] [facility] [address] Bacteria Cult, Aerobe / Anaerobe+Susc (05/18/2022 1:03 PM CDT)Only the most recent of4 resultswithin the time period is included. [facility] Method Time Signature Bacteria Cult, No growth 06/01/2022 DT Aerobe/Anaerob after 14 6:02 PM CDT e+[facility] days of incubation. Specimen Anatomical Collection Method Collection Time Receive d Time (Source) Location / / Volume Laterality Shoulder, Left 05/18/2022 1:03 PM 022 5:21 CDT PM CDT Comment: Specimen Source Site: Tissue #1 Narrative [facility] - [facility] - 06/01/2022 6:02 PM CDT Bacterial Culture: Placed in Bactec aero bic and Bactec anaerobic bottles Cyrus Polk M.D. LAB MICROBIOLOGY - GENERAL O RDERABLES Performing Organization Address City/State/ZIP Code Phon e Number [facility] - [address] [place], [place] [address] [facility] [address] [facility] [address] LDA ANE ENDOTRACHEAL AIRWAY (05/18/2022 12:20 PM [...] ETT location: oral VL device: glide scope [place] scope blade size: 3 Adult tube size: [...] no complications Kaushik Carlos, BBritton ANESTHESIA ORDERABLES MS INJ ANES BRACHIAL PLEX, MS US GUIDE PLC NDL, MC ANE NERVE BLOCK WITH ULTRASOUND (05/18/2022 11:24AM CDT) Narrative Jonah Mendez M.D. - 05/18/2022 11:24 AM CDT Jonah Menedz M.D. ? 05/18/2022 12:18 PM Regional Block [...] Non-Radiology Image-Anesthesiology Image Exam (05/18/2022 9:35 AM [facility]) Specimen (Source) Anatomical Collection Method Collection Time Re ceived Time Location / / Volume Laterality 05/18/2022 10:22 AM MST Narrative [facility] - 05/18/2022 9:35 AM [facility] This order has been created and auto-finalized to support the import of images acquired without order. The clini france documentation to support these images can be found on the encounter daniel t produced images. Provider Not In System IMG NON RAD IMAGING PROCEDUR ES Performing Organization Address City/State/ZIP Code Phon e Number [facility] Result (05/17/2022 10:50 AM [...] Reviewed by: Tech 05/17/2022 1:04 PM CDT DHPM Specimen Anatomical Collection Method Collection Time Receive d Time (Source) Location / / Volume Laterality Blood 05/17/2022 10:50 05/17/2022 AM CDT 11:30 AM CDT Alfredo Kamara LAB BLOOD ADD-ON Performing Organization Address City/[facility] Phon e Number [facility] - [address] [place], [place] [address] [facility] [address] [facility] 200 [facility] Type and Screen (with reflex Antibody ID) (05/17/2022 10:50 AM CDT) Soci[facility] Method Time Signature ABORh A Neg Not 05/17/2022 ETRM applicable 7:10 PM CDT Antibody Negative Negative 05/17/2022 ETRM Screen 7:22 PM CDT Type & Screen 07/15/2022 05/17/2022 ETRM Expiration 23:59 7:10 PM CDT Testing [place] DEFAULT 05/17/2022 ETRM Location 12:24 PM CDT Specimen Anatomical Collection Method Collection Time Receive d Time (Source) Location / / Volume Laterality Blood (Blood, 05/17/2022 10:50 05/17/2022 Venous) AM CDT 12:24 PM CDT Alfredo Kamara LAB BLOOD BANK TEST ORDERABL ES Performing Organization Address City/[facility] Phon e Number [facility] - [address] [place], [place] [address] [facility] [address] [facility] [address] [facility] SARS Coronavirus 2, Molecular Detection, PCR, Varies Asymptomatic (05/17/2022 10:26 AM CDT) Sociact Method Time Signature COVID-19, Swab, 05/17/2022 DTL [...] ----ADDITIONAL INFORMATION---- This RT-PCR test using the [employer] SARS-Co V-2 Assay ( [employer].) performed on the [employer] Two Module System has received Emergency Use Authorization (EUA) by the U.S. Food and Drug Administration, and is modified from the hvac sheet metal installer's instructions with a bridging study. Performance characteristics were verifie d by [facility] in a manner consistent with CLIA requirements. Visit the CDC website: https://www.cdc.g ov/coronavirus/ for the most recent guidelines on [facility] virus testing. Fact Sheet for Healthcare Providers: https://www.fda.gov/media/777288/downloa d Fact Sheet for Patients: https://www.fda.gov/media/593600/downloa d Specimen Anatomical Collection Method Collection Time Receive d Time (Source) Location / / Volume Laterality Varies 05/17/2022 10:26 05/17/2022 (Nasopharynx) AM CDT 10:52 AM CDT Alfredo Kamara LAB MICROBIOLOGY - GENERAL O RDERABLES Performing Organization Address City/State/[facility] Code Phon e Number [facility] - [address] [place], [place] [address] [facility] [address] [facility] [address] (ABNORMAL) Reflex anemia panel (previous CBC) (05/03/2022 [...] 05/03/2022 Venous) AM CDT 10:53 AM CDT [facility] - 05/03/2022 11:47 AM CDT Specimen Information: Specimen ID: [id number] Specimen Type: Blood Specimen Collection Start Date: 10:11 AM Specimen Received Date: 05/03/2022 10:53 AM Specimen ID: [id number] Specimen Type: Blood Specimen Collection Start Date: 10:11 AM Specimen Received Date: 05/03/2022 10:53 AM Specimen ID: [id number] Specimen Type: Blood Specimen Collection Start Date: 10:11 AM Specimen Received Date: 05/03/2022 10:53 AM Specimen ID: [id number] Specimen Type: Blood Specimen Collection Start Date: 10:11 AM Specimen Received Date: 05/03/2022 10:32 AM Specimen ID: [id number] Specimen Type: Blood Specimen Collection Start Date: 10:11 AM Specimen Received Date: 05/03/2022 11:44 AM Shauna Rubin APRN, C.N.P., M.S.N. LAB BLOOD ADD-ON Performing Organization Address City/State/ZIP Code Phon e Number [facility] - [address] [place], [place] [address] [facility] [place] [address] [facility] [address] Brain w/o Contrast-Outside MR Neuro (2022 3:35 [...] Code Phon e Number IIMS IIMS NA CT Shoulder Left without IV [...] CBC without Differential (04/14/2022 10:42 AM CDT) [facility] Method Time Signature Hemoglobin 8.6 (L) 11.6 [...] Kamara LAB BLOOD ADD-ON Performing Organization Address [facility] Phon e Number [facility] - [address] CRP (C-Reactive Protein) (04/14/2022 10:42 AM CDT) P athologist Signature C-Reactive <3.0 <=8.0 mg/L 04/14/2022 DTL Protein (CRP), 11:43 AM CDT S Specimen Anatomical Collection Method Collection Time Receive d Time (Source) Location / / Volume Laterality Blood (Blood, 04/14/2022 10:42 04/14/2022 Venous) AM CDT 11:20 AM CDT Alfredo Kamara LAB BLOOD ADD-ON Performing Organization Address City/[facility] Phon e Number [facility] [address] Cell Count and Differential, Body Fluid (04/14/2022 [...] Its performance characteri stics were determined by [facility] in a manner co nsistent with [...] City/State/ZIP Code Phon e Number [facility] - [address] [place], [place] [address] [place] [address] [facility] [address] MS ARTHCS ASP/INJ MJR JT W US (04/14/2022 [...] Priya Blue, L.A.T., A.T.C. 4. Pete Kaye, L.A.TBritton, A.T.C. PROCEDURE DETAILS Procedure Location shoulder Shoulder [...] loosening. Alfredo Kamara IMGeronimo DIAGNOSTIC IMAGING PROCE DURES from Last 3 Months Additional Health Concerns Infection Onset Date Last Indicated Resolved Time COVID19 Pending 06/15/2022 06/15/2022 Insurance Payer Benefit Plan / Subscriber ID Effective Phone Address T ype Group Dates MEDICARE MEDICARE A AND B [id number] 2012-Pre [address] [place] [address] MEDICA MEDICA [id number] 2018-Pres [phone] Medica id HMO ACCESSABILITY ent [phone] [place] [address] Advance Directives For more information, please contact: [phone] Latest Code Status on File Code Status [...] 7:30 PM Full Code: Discussed Care Teams Composition Roofer Relationship Specialty Start Date End Date Elsewhere, Pcp PCP - General Internal Medicine 12/25/21
--- OUTSIDE RECORDS SUMMARY | 2022-07-06 15:30 | XMS_ITS | Encounter Summary ---
:1965 Author Organization [facility] Address [address] [place] [address] Care Team Providers Name Role Phone Elsewhere, Pcp Primary Care Provider Unavailable Reason for Visit Reason Comments xray results Encounter Details Date Type Department Care Team Description 06/10/2022 Clinical Communication Department of Cyrus Polk xr ay results Orthopedic Surgery in Lilian Souza [place], [place] [address] [place] [address] [address] [place] [phone] Social History Tobacco Use Types Packs/Day Years [...] or relatives? How often do you attend zoroastrian or Patient refused 2021 restorationist services? Do you belong to any clubs or No 05/17/2022 organizations such as zoroastrian groups, unions, fraternal or athletic groups, or [...] Cyrus Polk M.D. CT CT Job ID: [id number] documented in this encounter Miscellaneous Notes Telephone [...] documented as of this encounter Care Teams Director Of Sustainable Design Relationship Specialty Start Date End Date Elsewhere, Pcp PCP - General Internal Medicine 12/25/21 documented as of this encounter
--- OUTSIDE RECORDS SUMMARY | 2022-07-06 15:30 | XMS_ITS | Encounter Summary ---
:[address] [facility] Address [address] [place] [address] Care Team Providers Name Role Phone Elsewhere, Pcp Primary Care Provider Unavailable Reason for Visit Reason Comments Post-op Problem Encounter Details Date Type Department Care Team Description 06/03/2022 Clinical Communication Department of Cyrus Polk st-op Problem Orthopedic Surgery in Lilian Souza [place], [place] [address] [place] [address] 200 [place] [id number] [phone] Social History Tobacco Use Types Packs/Day Years [...] you attend rastafari or Patient refused 2021 sikhism services? Do [...] Cyrus Polk M.D. CT CT Job ID: [id number] documented in this encounter Miscellaneous Notes Telephone [...] bent forward again. Please call her at [phone] to discuss. documented in this encounter Plan of Treatment Not on filedocumented as of this encounter Visit Diagnoses Not on filedocumented in this encounter Additional Health Concerns Assessment Noted Time PHQ-9 Depression Total Score: 16 02/11/2021 12:00 AM C DT documented as of this encounter Care Teams Manager Of Loss Prevention Operations Relationship Specialty Start Date End Date Elsewhere, Pcp PCP - General Internal Medicine 12/25/21 documented as of this encounter
--- OUTSIDE RECORDS SUMMARY | 2022-07-06 15:30 | XMS_ITS | Encounter Summary ---
:1965 Author Organization [facility] Address [address] [place] [address] Care Team Providers Name Role Phone Elsewhere, Pcp Primary Care Provider Unavailable Encounter Details Date Type Department Care Team Description 05/18/2022 - Hospital Encounter [facility] Mable Polk In fection Of Left Shoulder In Infectious And Parasitic Diseases Classified Elsewhere (HCC) (Primary Dx); 05/20/2022 [facility] C[facility] Souza M.D. Shoulder Joint Disorder Left; [place], [facility] [address] [facility] Pain Shoulder Left; Building, [place], [place] Primary Os teoarthritis Shoulder Left Floor [address] [address] [facility] [phone] [place], [place] (Work) [phone] Social History Tobacco Use [...] or relatives? How often do you attend methodist or Patient refused 2021 episcopalian services? Do you belong to any clubs or No 05/17/2022 organizations such as methodist groups, unions, fraternal or athletic groups, or [...] AM CDT DISCHARGE SUMMARY BRIEF OVERVIEW Hospital: [facility] Discharge Provider: Cyrus Polk M.D. Primary Team: [...] RST ROEI OR DISCHARGE DISPOSITION Home[place]Health [facility] [6] ACTIVE ISSUES REQUIRING FOLLOW UP This document serves as a prescription to continue physical therapy, medications, and labs or x-raysif ordered/required. If you have any questions or concerns about surgery or upcoming appointments, please do not hesitateto contact Dr. Polk's office at [phone] during regular business hours (8am-5pm M-F). For emergencies on the weekend or after hours, you may contact Dr. Polk's service via the [facility] veneer slicing machine operator at [phone]. Details for your 6 week follow-up appointment [...] to: Cyrus Polk MD Dept of Orthopedics [address], [address] None OUTPATIENT FOLLOW UP For appointment details [...] M.D.Wasserburger, Jory N, M.D.Markos, James R, M.D. [facility] SEBAS OR Angie Mosquera was taken [...] mask during therapy session: yes Outcome Measures [facility] Inpatient Short Form: -[facility] Basic Mobility (V.2) How much help from [...] 3-5 steps with a railing?: A Little -[facility] Basic Mobility (V.2) Raw Score: 18 -[facility] Basic Mobility (V.2) Standardized Score: 41.05 Interpretation: Clinicians answer the [facility] Inpatient Short Form based on observed patient [...] 6 am until 6 pm, please page [facility] at [phone] For urgent matters from 6 pm until 6 am, please page [facility] [place] [facility] [phone] Jane Nguyen Pharm.D., R.Ph. - 05/19/2022 8:12 [...] at this time. Jane Nguyen Pharm.D., R.Ph. [phone] Kaushik Cadena M.D. - 05/19/2022 7:34 AM [...] 6 am until 6 pm, please page [facility] at [phone] For urgent matters from 6 pm until 6 am, please page [facility] [place] [facility] [phone] Paco Valentine - 05/18/2022 9:47 AM CDT Encounter: AM Admit Deanna Tradition: No episcopalian affiliation. Ms. Mosquera did not express any spiritual needs at this time. Plan: Will remain available for spiritual care as needed or requested. [phone] ([facility]). Rodrigo Preston, Pharm.D., R.Ph. - [...] Take 150 mg by mouth every morning. rokbasrccy-pgpgdenoblaeq-znjt (ESGIC) 50-325-40 mg per tablet Past Week [...] 1 spray as needed. 5 mg THC multivit-min/iron/folic/epb696 (HAIR, SKIN AND NAILS ADVANCED ORAL) Past [...] (HCC) ??? Nicotine Dependence Unspecified ??? Other Correction Current Drug Therapy ??? Direct Infection Of [...] Profile Lives With: Alone Receives Help From: change room attendant, Family, Friend(s) ADL Assistance: Required assistance ADL Assistance Comments: Gets help from CROWN ASSEMBLY MACHINE OPERATOR for her bath/shower 3x/week, and for her meals IADL/Homemaking Assistance: Required assistance IADL/Homemaking Assistance Comments: Gets help for housecleaning Driving: Does not drive Driving Comments: takes her cane and medical alert with her. Occupational Role: On disability Occupational Role Comments: Previously worked at a [employer] and [employer] Prior Mobility/Functional Transfers Level of Jerauld: Needs assistance Previous Transfer/Mobility Assistance Comments: Patient [...] mask during therapy session: yes Outcome Measures [facility] Inpatient Short Form: -[facility] Basic Mobility (V.2) How much help from [...] 3-5 steps with a railing?: A Little -[facility] Basic Mobility (V.2) Raw Score: 18 -[facility] Basic Mobility (V.2) Standardized Score: 41.05 Interpretation: Clinicians answer the -[facility] Inpatient Short Form based on observed patient [...] Nurse Referral Reason: Discharge Planning Primary Language: Monegasque 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 Services Used: No Person(s) present during interview: Person(s) Present During Interview: patient History of Present Illness #1 Primary Osteoarthritis Shoulder Left Social History Support System: children, onsite case manager/social media designer, friends/neighbors and home care staff Patient's Home [...] Calm, Oriented Communication: Talks, Understands speaking, Understands Monegasque Shopping: Needs assistance Transportation: Support from family Medication Management: Needs assistance Housekeeping: Needs assistance Meal Prep: Needs assistance Managing Finances: Independent Assistive Devices: Grab bars - wall, Eyeglasses Services/Resources: Other (comment) Agency Name: [facility] Services Provided: CROWN ASSEMBLY MACHINE OPERATOR services 3x/week, nurse visits every other week Baseline Services/Resources Primary care clinic and provider: [place], [facility] Phone: Fax: Anticipated Needs Functional Status: Transfer to/from bed, chair, etc., Bathing, Dressing, Grooming/hygeine, Housekeeping, Shopping, Meal preparation, Mobility, Medication set-up/administration, Transportation use (drive car, use taxi/bus) Services/Resources: Other (comment) Agency Name: [facility] Services Provided: CROWN ASSEMBLY MACHINE OPERATOR services 3x/week, nurse visits every other week Transportation Needs: Support from family Does the patient need discharge transport arranged?: No Ride and Caregiver Arranged: Yes Anticipated Discharge Destination: Home-Health Care [facility] ASSESSMENT / PLAN Assessment: The field care coordinator met with Angie Mosquera to discuss her current hospitalization and home goingneeds. The patient was unaccompanied. The patient was a reliable historian. The role of field care coordinator was reviewed. The patient reviewed her prior level of care and support system. The patient receives support from her son, friends and home care staff. Patient reported her son lives in the same apartment as her. She also stated getting CROWN ASSEMBLY MACHINE OPERATOR services 3x/week and a nurse visits her every other week. The patient described her living environment as a two bedroom apartment. Housekeeping, grocery shopping, meal prep, and other household responsibilities have previously been completed by patient, patient's son and patient's caregiver(s). field care coordinator discussed the patient's potential needs at [facility] based on their home setting, previous needs and responsibilities, homebound status, and relevantassessments with the patient. The patient will be safe and supported to return home with [facility] or previous services noted above when medically ready. Support will be provided by son, friends and home care staff. The patient demonstrated understanding when discussing her home going plans and anticipated needs. At this time, the care team anticipates the patient requires the following service(s) to be reconnected: home healthcare. The patient identified the following as their current vendor(s): [facility]. During this visit patient verbalized she is hoping to increase her CROWN ASSEMBLY MACHINE OPERATOR hours and also inq uired about getting a scooter to assist in her mobility. Patient went on to share she is unstable attimes due to her stroke history. She thought perhaps her neurology doctor would be able to help her get a scooter. RADHA DONAHUE recommended she follow up with the county in regards to wanting more CROWN ASSEMBLY MACHINE OPERATOR hours. She was also recommended to follow up with her primary care provider to provide durable medical equipment justification for a scooter, as she is currently hospitalized for orthopedic surgery. Patient verbalized understanding. Patient informed RN CM would be reconnecting her CROWN ASSEMBLY MACHINE OPERATOR services and nurse visits with [facility]. Patient agreeable to RN CM completing this and even provided RN CM the name and contact of her CROWN ASSEMBLY MACHINE OPERATOR and RN. After reviewing the patient's chart and meeting with the patient, the field care coordinator deemed the LACE+/readmission questions were not necessary. The patient reports understanding that she will dismiss from the hospital when medically stable. Pending hospital course and medical readiness, no barriers to dismissal have been identified at this time. Plan: Patient to discharge with home health care. [facility] Contact: RADHA Palomino ATTN: Georgette NURSING: [...] directive. PRIMARY SERVICE: - Please provide a non-[place] home health order for resumption of previous [...] dismissal will be provided by family. 3. field care coordinator recommended reaching out to family, friends, and neighbors for assistance. 4. field care coordinator provided information regarding the dismissal process. 5. field care coordinator placed or requested the following hospital-based consult orders and/or referrals:None. 6. field care coordinator will continue to assess for homegoing needs with the interdisciplinary team. 7. field care coordinator encouraged the patient to reach out with [...] falls. Patient will discharge to home with [facility] reconnect. Identify possible barriers to meeting goals/advancing plan of care: none End of Shift Summary: Patient stayed on schedule with prn pain meds (Tramadol and oxycodone) throughout the shift. Encouraged using ice packs to help with pain and swelling. Patient's primapore dressing was changed to Aquacell [employer] and is clean, dry and intact. 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 Patient expects RN from [facility] to visit on Tuesday, May 24. Patient's friend will transport home. Medications including: oxycodone and tramadol were picked up [facility]. documented in this encounter OR Notes Op Note - Cyrus Polk M.D. - 05/18/2022 5:54 PM CDT STAFF: Cyrus Polk M.D. RESIDENT: Jenna Zaldivar M.D. PRE-OPERATIVE DIAGNOSIS Left dislocated reverse arthroplasty. POST-OPERATIVE DIAGNOSIS Left dislocated reverse arthroplasty. A mate first actively participated and was necessary for one [...] glenosphere, placement new humeral stem and tray, [id number] Cyrus Polk M.D. CT CT Job ID: [id number] documented in this encounter Miscellaneous Notes Hospital [...] with Differential, Blood (05/20/2022 3:43 AM CDT) [facility] Method Time Signature Hemoglobin 8.4 (L) [...] City/State/ZIP Code Phon e Number [facility] - [address] [place], [place] [address] [facility] [place] [address] [facility] [address] [facility] (ABNORMAL) CBC with Differential, Blood (05/19/2022 3:26 AM CDT) [facility] Method Time Signature Hemoglobin 7.6 (L) [...] City/State/ZIP Code Phon e Number [facility] - [address] [place], [place] [address] [facility] [place] [place] [address] [facility] [address] [facility] (ABNORMAL) Basic Metabolic Panel (05/19/2022 3:26 [...] 05/19/2022 DTL Black/ mL/min/BSA 4:38 AM CDT Moldovan Comment: ----ADDITIONAL INFORMATION---- Estimated GFR calculated using [...] City/State/ZIP Code Phon e Number [facility] - [address] [place], [place] [address] [facility] [place] [address] [facility] [address] DX Shoulder Left 1 [...] purposes. Jenna Zaldivar M.D. IMG DIAGNOSTIC IMAGING [facility] Surgical Pathology, Frozen Lab (05/18/2022 1:04 PM CDT) Component Value Ref Test Analysis Performed At [facility] Method Time Signature 05/20/2022 METH 11:46 AM [...] LAB SURG PATH ORDERABLES Performing Organization Address [facility] Phon e Number [facility] - [address] [place], [place] [address] [facility] [place] [address] [facility] [address] [facility] Bacteria Cult, Aerobe / Anaerobe+Susc (05/18/2022 1:03 PM CDT) [facility] Method Time Signature Bacteria Cult, No growth 06/01/2022 DTL Aerobe/Anaerob after 14 6:02 PM CDT e+Susc days of incubation. Specimen Anatomical Collection Method Collection Time Receive d Time (Source) Location / / Volume Laterality Shoulder, Left 05/18/2022 1:03 PM 022 5:21 CDT PM CDT Comment: Specimen Source Site: Tissue #1 Narrative [facility] - 06/01/2022 6:02 PM CDT Bacterial Culture: Placed in Bactec aero bic and Bactec anaerobic bottles Cyrus Polk M.D. LAB MICROBIOLOGY - GENERAL O RDERABLES Performing Organization Address [facility] [address] [facility] Phon e Number [facility] - [address] [place], [place] [address] [facility] [place] [address] [facility] [address] [facility] Bacteria Cult, Aerobe / Anaerobe+Susc (05/18/2022 1:03 PM CDT) [facility] Method Time Signature Bacteria Cult, No growth 06/01/2022 DTL Aerobe/Anaerob after 14 6:02 PM CDT e+Susc days of incubation. Specimen Anatomical Collection Method Collection Time Receive d Time (Source) Location / / Volume Laterality Shoulder, Left 05/18/2022 1:03 PM 022 5:12 CDT PM CDT Comment: Specimen Source Site: Tissue #3 Narrative [facility] - 06/01/2022 6:02 PM CDT Bacterial Culture: Placed in Bactec aero bic and Bactec anaerobic bottles Cyrus Polk M.D. LAB MICROBIOLOGY - GENERAL O MARY Performing Organization Address [facility] [address] [facility] Phon e Number [facility] - [address] Bacteria Cult, Aerobe / Anaerobe+Susc (05/18/2022 1:03 PM CDT) [facility] Method Time Signature Bacteria Cult, No growth 06/01/2022 [facility] Aerobe/Anaerob after 14 6:02 PM CDT e+Susc days of incubation. Specimen Anatomical Collection Method Collection Time Receive d Time (Source) Location / / Volume Laterality Shoulder, Left 05/18/2022 1:03 PM 022 5:07 CDT PM CDT Comment: Specimen Source Site: Tissue #2 Narrative [facility] - 06/01/2022 6:02 PM CDT Bacterial Culture: Placed in Bactec aero bic and Bactec anaerobic bottles Cyrus Polk M.D. LAB MICROBIOLOGY - GENERAL O MARY Performing Organization Address [facility] Phon e Number [facility] - [address] [place] [id number] [place] [address] documented in this encounter Visit Diagnoses Diagnosis [...] (COMPLETED) 1240 (Given - Provider: Ihsan Townsend, RETRIEVAL SPECIALIST, PREMIUM REPRESENTATIVE) 2,000 mg (rounded from 1,652.5 mg = [...] RBetsy) 0552 (Given - Provider: Jere collado RBetsy) 200 mg, oral, Daily before breakfast, Fi [...] 1240 (Given - Provider: Ihsan Townsend APRN, [facility]) 1,000 mg (1 g), intravenous, at 300 [...] mg of calcium, oral, Every 2 hour LA N, indigestion, Starting on Tue05/18/22 at 1608, [...] R.N.) 0124 (Given - Provider: Leticia Pérez, R.N.)0583 (Given - Provider: Jere Levy R.N.)1004 (Given [...] over 3 days 1 patch (TRANSDERM S PSYCHOLOGY ASSOCIATE) (CANCELED) 1118 (Medication Applied - Provider: [...] documented as of this encounter Care Teams Heat Treater Apprentice Relationship Specialty Start Date End Date Elsewhere, Pcp PCP - General Internal Medicine 12/25/21 documented as of this encounter
--- OUTSIDE RECORDS SUMMARY | 2022-07-06 15:30 | XMS_ITS | Continuity of Care Document ---
:1965 Author Organization [facility] Address [address] [place] [address] Phone Care Team Providers Name Role Phone Rosetta Martin DNP Unavailable Unavailable Allergies, Adverse Reactions, Alerts Substance Reaction Status Criticality gabapentin Tremor Active No Information baclofen Rash Active No Information benzoin Rash Active No Information acyclovir Rash Active No Information cefaclor Rash Active No Information adhesive tape Rash Active No Information amoxicillin Rash Active No Information Medications Medication Instructions Dosage Effective Status Comments Dates (start - stop) oxycodone 10 mg take 1 Tablet by - Active tablet ORAL route every 4 - 6 hours as needed, max 4/day, for chronic pain TIZANIDINE HCL 4 MG TAKE 1 TO 2 - Active TABLET 4 Tablet TABLETS BY MOUTH EVERY EIGHT HOURS NEEDED NOT TO EXCEED THREE DOSES IN 24 HOURS PREGABALIN 150 MG take 1 capsule by 150 MG - Active CAPSULE oral route 4 times every day Valium 10 mg tablet take 1/2 tablet - Active by ORAL route every day as needed Lyrica 300 mg take 2 capsule by 600 MG - Active capsule oral route 2 times every day aspirin 325 mg take 1 tablet by 325 MG - Active tablet,delayed oral route every release day fluoxetine 60 mg take 1 tablet by 60 MG - Active tablet oral route every day in the morning Vitamin B-12 5,000 take as directed - Active mcg/mL sublingual drops albuterol sulfate inhale 2 puff by - Active HFA 90 mcg/actuation inhalation route aerosol inhaler every 4 - 6 hours as needed Atrovent HFA 17 inhale 2 puff by 34 MCG - Active mcg/actuation inhalation route aerosol inhaler 4 times every day benzonatate 100 mg take 1 capsule by 100 MG - Active capsule oral route 3 times every day Symbicort 160 inhale 2 puff by 2.00 puff - Active mcg-4.5 inhalation route mcg/actuation HFA 2 times every day aerosol inhaler in the morning and evening cholecalciferol take 1 tablet by 1 tablet - Active (vitamin D3) 5,000 oral route every unit tablet day folic acid 800 mcg take 3 tablet by 2.4 MG - Active tablet oral route every day furosemide 20 mg take 2 tablet by 40 MG - Active tablet oral route every day Combivent Respimat inhale 1 puff by 1.00 puff - Active 20 mcg-100 inhalation route mcg/actuation 4 times every day solution for ; may take inhalation additional puffs as needed not to exceed 6 puffs in 24hrs lamotrigine 200 mg take 1 tablet by 200 MG - Active tablet oral route 2 times every day lidocaine 5 % apply by Topical Not Available - Active topical ointment route 4 times every day Nexium 40 mg take 1 capsule by 40 MG - Active capsule,delayed oral route 2 release times every day omeprazole [address] 1 tablet by 1 tablet - Active tablet,delayed oral route every release day for [address] 1 tablet by 8 MG - Active disintegrating translingual tablet route every 8 hours for 2 days on top of the tongue where it will dissolve, then swallow polyethylene glycol take (17G) by 17 G - Active 3350 17 gram/dose oral route every oral powder day mixed with 8 oz. water, juice, soda, coffee or tea potassium chloride take 2 capsule by 20 MEQ - Active ER 10 mEq oral route 2 capsule,extended times every day release with food tretinoin 0.05 % apply by topical 0.00 - Active topical cream route every day to the affected area(s) at bedtime Valtrex 500 mg take 1 Tablet by 500 MG - Active tablet oral route 2 times every day zonisamide 100 mg take 3 capsule by 300 MG - Active capsule oral route 2 times every day oxycodone 10 mg take 1 Tablet by - No Longer tablet ORAL route every Active 4 - 6 hours as needed, max 4/day, for chronic pain Procedures Procedure Date up eval q3mo opiod tx OFFICE VISIT, EST TELEMEDICINE Foll-up eval q3mo opiod tx OFFICE VISIT, EST TELEMEDICINE Foll-up eval q3mo opiod tx OFFICE/OUTPATIENT VISIT, EST Foll-up eval q3mo opiod tx OFFICE VISIT, EST TELEMEDICINE Drug Urine Toxology With Chromatography Drug test def 15-21 classes Foll-up eval q3mo opiod tx OFFICE VISIT, EST TELEMEDICINE Foll-up eval q3mo opiod tx OFFICE VISIT, EST TELEMEDICINE Foll-up eval q3mo opiod tx OFFICE VISIT, EST TELEMEDICINE Foll-up eval q3mo opiod tx OFFICE VISIT, EST TELEMEDICINE OFFICE/OUTPATIENT VISIT, EST Foll-up eval q3mo opiod tx Foll-up eval q3mo opiod tx OFFICE VISIT, EST TELEMEDICINE Foll-up eval q3mo opiod tx OFFICE VISIT, EST TELEMEDICINE ROUTINE BLOOD DRAW Drug Urine Toxology With Chromatography Drug test def 8-14 classes OFFICE/OUTPATIENT VISIT, EST Foll-up eval q3mo opiod tx Foll-up eval q3mo opiod tx OFFICE VISIT, EST TELEMEDICINE Foll-up eval q3mo opiod tx OFFICE VISIT, EST TELEMEDICINE Foll-up eval q3mo opiod tx OFFICE VISIT, EST TELEMEDICINE Foll-up eval q3mo opiod tx OFFICE VISIT, EST TELEMEDICINE Foll-up eval q3mo opiod tx OFFICE VISIT, EST TELEMEDICINE Foll-up eval q3mo opiod tx OFFICE VISIT, EST TELEMEDICINE Foll-up eval q3mo opiod tx OFFICE VISIT, EST TELEMEDICINE Foll-up eval q3mo opiod tx OFFICE VISIT, EST TELEMEDICINE OFFICE/OUTPATIENT VISIT, EST Foll-up eval q3mo opiod tx Foll-up eval q3mo opiod tx OFFICE VISIT, EST TELEMEDICINE OFFICE VISIT, EST TELEMEDICINE Foll-up eval q3mo opiod tx No Charge For Visit Per Prov IMPLANT NEUROELECTRODES ASC IMPLANT NEUROELECTRODES ASC INSRT/REDO SPINE N GENERATOR Foll-up eval q3mo opiod tx OFFICE VISIT, EST TELEMEDICINE SCS Implant Ordered SCS Implant Ordered IMPLANT NEUROELECTRODES ASC IMPLANT NEUROELECTRODES ASC Foll-up eval q3mo opiod tx OFFICE VISIT, EST TELEMEDICINE Foll-up eval q3mo opiod tx OFFICE VISIT, EST TELEMEDICINE Psych Dx Eval SCS Trial Procedure Ordered SCS Trial Procedure Ordered SCS Trial Procedure Ordered Foll-up eval q3mo opiod tx OFFICE VISIT, EST TELEMEDICINE No Charge For Visit Per Prov OFFICE/OUTPATIENT VISIT, EST Foll-up eval q3mo opiod tx Removal of spinal neurostimulator REVISE/REMOVE NEURORECEIVER OFFICE/OUTPATIENT VISIT, EST Foll-up eval q3mo opiod tx Drug Urine Toxology With Chromatography SCS Revision Procedure Ordered SCS Revision Procedure Ordered OFFICE/OUTPATIENT VISIT, EST Foll-up eval q3mo opiod tx OFFICE/OUTPATIENT VISIT, EST Foll-up eval q3mo opiod tx OFFICE/OUTPATIENT VISIT, EST Foll-up eval q3mo opiod tx OFFICE/OUTPATIENT VISIT, EST Foll-up eval q3mo opiod tx OFFICE/OUTPATIENT VISIT, EST OFFICE/OUTPATIENT VISIT, EST Drug test def 22+ classes Drug Urine Toxology With Chromatography OFFICE/OUTPATIENT VISIT, EST Drug test def 22+ classes OFFICE/OUTPATIENT VISIT, EST OFFICE/OUTPATIENT VISIT, EST OFFICE/OUTPATIENT VISIT, EST No Charge For Visit Per Prov OFFICE/OUTPATIENT VISIT, EST Drug test def 22+ classes Drug Urine Toxology With Chromatography No Charge For Visit Per Prov IMPLANT NEUROSTIM ASC IMPLANT NEUROELECTRODES ASC INSRT/REDO SPINE N GENERATOR FLUOROGUIDE FOR SPINE INJECTION SCS PreSurgery Caterina Production OFFICE/OUTPATIENT VISIT, EST No Charge For Visit Per Prov Lower Back LSO Brace ORTHOTIC MGMT AND TRAINING Initial Encounter 18 IMPLANT NEUROELECTRODES ASC IMPLANT NEUROELECTRODES ASC FLUOROGUIDE FOR SPINE INJECTION Implt neurostim elctr each OFFICE/OUTPATIENT VISIT, EST SCS PreTrial Bison Production OFFICE/OUTPATIENT VISIT, EST OFFICE/OUTPATIENT VISIT, EST OFFICE/OUTPATIENT VISIT, EST Drug test def 22+ classes Drug Urine Toxology With Chromatography OFFICE/OUTPATIENT VISIT, EST OFFICE/OUTPATIENT VISIT, EST OFFICE/OUTPATIENT VISIT, EST OFFICE/OUTPATIENT VISIT, EST OFFICE/OUTPATIENT VISIT, EST OFFICE/OUTPATIENT VISIT, EST OFFICE/OUTPATIENT VISIT, EST OFFICE/OUTPATIENT VISIT, EST OFFICE/OUTPATIENT VISIT, EST OFFICE/OUTPATIENT VISIT, EST OFFICE/OUTPATIENT VISIT, EST OFFICE/OUTPATIENT VISIT, EST OFFICE/OUTPATIENT VISIT, EST OFFICE/OUTPATIENT VISIT, EST OFFICE/OUTPATIENT VISIT, EST OFFICE/OUTPATIENT VISIT, EST OFFICE/OUTPATIENT VISIT, EST OFFICE/OUTPATIENT VISIT, EST OFFICE/OUTPATIENT VISIT, EST OFFICE/OUTPATIENT VISIT, EST OFFICE/OUTPATIENT VISIT, EST OFFICE/OUTPATIENT VISIT, EST OFFICE/OUTPATIENT VISIT, EST OFFICE/OUTPATIENT VISIT, NEW Advance Directives Directive Yes / No Effective Date File Name No Information Encounters Encounter Practice Location Reason(s) Diagnoses Date Provider Provide rs Description For Visit Copied on Encounter OFFICE VISIT, [facility] Back Pain Pain in left Apr- [facility] (chief shoulderAnxiety [place]. TELEMEDICINE Pain [place] complaint) disorder, [address] [facility], unspecifiedChronic John, [address] migraine without [place], aura, intractable, [place], [place], [place], without status [id number] [place], migrainosusOsteoar , [place]. [id number] thritisPain in tel: , [place] right hipPain in [id number] tel: left hipPain in [id number] left kneePain in right kneeOther spondylosis, cervical regionOther spondylosis, lumbar regionRadiculopath y, lumbar regionPain in thoracic spinePostlaminecto my syndrome, not elsewhere classifiedFibromya lgiaLong term (current) use of opiate analgesic OFFICE VISIT, [facility] Back Pain Pain in left March- [facility] (chief hipAnxiety [place]. TELEMEDICINE Pain [place] complaint) disorder, [address] [facility], unspecifiedChronic John, [address] migraine without [place], aura, intractable, [place], [place], Cater[place], without status [id number] [place], migrainosusOsteoar , [place]. [id number] thritisPain in tel: , [place] left shoulderPain [phone] tel: in right hipPain [id number] in left kneePain in right kneeOther spondylosis, cervical regionOther spondylosis, lumbar regionRadiculopath y, lumbar regionPain in thoracic spineFibromyalgiaP ostlaminectomy syndrome, not elsewhere classifiedLong term (current) use of opiate analgesic [facility] No Information [facility] [place]. Pain Caterina [address] [facility], John, [address] [place], [place], [place], [place], [id number] [place], , [place]. [id number] tel: , [place] [id number] tel: [phone] OFFICE/OUTPAT [facility] Back Pain Anxiety disorder, Feb- Ka ngas Referring IENT VISIT, [facility] (chief unspecifiedChronic [place] . Provider: EST Pain B[place] complaint) migraine without [address] [facility], aura, intractable, John, Will J, [address] without status [place] [address] [place], migrainosusOsteoar is, [place], John, [place], thritisPain in [id number] [place], left shoulderPain , [place]. s, [place], [id number] in left hipPain in tel: [phone] , [place] right hipPain in [id number] . tel: left kneePain in tel:2 [phone] right kneeOther [id number] spondylosis, cervical regionOther spondylosis, lumbar regionRadiculopath y, lumbar regionPain in thoracic spineFibromyalgiaP ostlaminectomy syndrome, not elsewhere classifiedLong term (current) use of opiate analgesic OFFICE VISIT, [facility] Back Pain Chronic migraine Jan- [facility] (chief without aura, [place]. TELEMEDICINE Pain Caterina complaint) intractable, [address] [facility], without status John, [address] migrainosusAnxiety [place], disorder, [place], [place], C[place]ina, unspecifiedOsteoar [id number] [place], thritisPain in , [place]. [id number] left shoulderPain tel: , [place] in right hipPain [id number] tel: in left hipPain in [id number] right kneePain in left kneeOther spondylosis, cervical regionOther spondylosis, lumbar regionRadiculopath y, lumbar regionPain in thoracic spineFibromyalgiaP ostlaminectomy syndrome, not elsewhere classifiedLong term (current) use of opiate analgesic [facility] No Information Mario Refer [facility] [place]. Provider: Pain [place] 2 [address] [facility], Endy Lopez, [address] [place] [address] [facility] John, is, [place], John, Caterina, [id number] [place], , [place]. s, [place], [id number] tel: [phone] , [place] [id number] . tel: tel: [phone] OFFICE VISIT, [facility] Back [facility] Radiculopathy, [facility] (chief lumbar [place]. TELEMEDICINE Pain [place] complaint) regionPostlaminect 2 [address] [facility], marquis syndrome, not John, [address] elsewhere [place] John, classifiedPain in is, [place], [place], left hipAnxiety [id number] [place], disorder, , [place]. [id number] unspecifiedPain in tel: , [place] thoracic [id number] tel: spineOsteoarthriti [phone] sChronic migraine without aura, intractable, without status migrainosusPain in right hipPain in left shoulderPain in right kneePain in left kneeFibromyalgiaOt her spondylosis, lumbar regionOther spondylosis, cervical regionLong term (current) use of opiate analgesicEncounter for therapeutic drug level monitoring OFFICE VISIT, [facility] Back Pain Radiculopathy, Kanga s Referring [facility] (chief lumbar [place]. Provider: TELEMEDICINE Pain Caterina complaint) regionPostlaminect 2 [address] [facility], marquis syndrome, not John, Will J , [address] elsewhere [place] [address] John classifiedPain in is, [place], John, [place], left hipAnxiety [id number] Augusta fischer [place], disorder, , [place]. [place], [place], [id number] unspecifiedPain in tel: [phone] , [place] thoracic [id number] . tel: spineOsteoarthriti tel : [phone] sChronic migraine 56700 45 without aura, intractable, without status migrainosusPain in right hipPain in left shoulderPain in right kneePain in left kneeFibromyalgiaOt her spondylosis, lumbar regionOther spondylosis, cervical regionLong term (current) use of opiate analgesic OFFICE VISIT, [facility] Back Pain Radiculopathy, Michael s Referring [facility] (chief lumbar [place]. Provider: TELEMEDICINE Pain B[place] complaint) regionPostlaminect [address] [facility], marquis syndrome, not John, Will J , [address] elsewhere [place] [address] John classifiedPain in is, [place], John, [place], left hipAnxiety [id number] [place] f[place], disorder, , [place]. [place], [place], [id number] unspecifiedPain in tel: [phone] , [place] thoracic [id number] . tel: spineOsteoarthriti tel : [phone] sChronic migraine 88659 45 without aura, intractable, without status migrainosusPain in right hipPain in left shoulderPain in right kneePain in left kneeFibromyalgiaOt her spondylosis, lumbar regionLong term (current) use of opiate analgesicOther spondylosis, cervical region OFFICE VISIT, [facility] Back Pain Radiculopathy, Kanga s [facility] (chief lumbar [place]. TELEMEDICINE Pain Caterina complaint) regionPostlaminect 1 [address] [facility], marquis syndrome, not John, [address] elsewhere [place] John, classifiedPain in is, [place], [place], left hipAnxiety [id number] [place], disorder, , [place]. [id number] unspecifiedPain in tel: , [place] thoracic [id number] tel: spineOsteoarthriti [phone] sChronic migraine without aura, intractable, without status migrainosusPain in right hipPain in left shoulderPain in right kneePain in left kneeFibromyalgiaOt her spondylosis, lumbar regionLong term (current) use of opiate analgesicOther spondylosis, cervical region OFFICE/OUTPAT [facility] Back Pain Other spondylosis, bakari Referring IENT VISIT, [facility] (chief cervical [place]. Provide r: EST Pain Caterina complaint) regionRadiculopath 1 [address] [facility], y, lumbar John, Will J, [address] regionPostlaminect [place] [address] John, marquis syndrome, not is, [place], John, [place], elsewhere [id number] [facility] [place], classifiedPain in , [place]. [place], [place], [id number] left hipAnxiety tel: [phone] , [place] disorder, [id number] . tel: unspecifiedPain in tel :2 [phone] thoracic [phone] spineOsteoarthriti sChronic migraine without aura, intractable, without status migrainosusPain in right hipPain in left shoulderPain in right kneePain in left kneeFibromyalgiaOt her spondylosis, lumbar regionLong term (current) use of opiate analgesic OFFICE VISIT, [facility] Back Pain Other spondylosis, K ang EST [facility] (chief cervical [place]. TELEMEDICINE Pain B[place] complaint) regionRadiculopath 1 [address] [facility] [facility], y, lumbar John, [address] regionPostlaminect [place], marquis syndrome, not is, [place], [place], elsewhere [id number] [place], classifiedPain in , [place]. [id number] left hipAnxiety tel: , [place] disorder, [id number] tel: unspecifiedPain in [id number] thoracic spineOsteoarthriti sChronic migraine without aura, intractable, without status migrainosusPain in right hipPain in left shoulderPain in right kneePain in left kneeFibromyalgiaOt her spondylosis, lumbar regionLong term (current) use of opiate analgesic OFFICE VISIT, [facility] Back Pain Other spondylosis, Jul- K angas Referring EST [facility] (chief cervical [place]. Provider: TELEMEDICINE Pain Caterina complaint) regionRadiculopath 1 [address] [facility], y, lumbar John, Will J, [address] regionPostlaminect [place] [address] John, marquis syndrome, not is, [place], John, [place], elsewhere [id number] [place], classifiedPain in , [place]. [place], [place], [id number] left hipAnxiety tel: [phone] , [place] disorder, [id number] . tel: unspecifiedPain in tel : [phone] thoracic [id number] spineOsteoarthriti sChronic migraine without aura, intractable, without status migrainosusPain in right hipPain in left shoulderPain in right kneePain in left kneeFibromyalgiaOt her spondylosis, lumbar regionLong term (current) use of opiate analgesic [facility] Encounter for Mario Referr ing [facility] therapeutic drug [place]. Pro vider: Pain Bison level [address] [facility], monitoringLong John, Will J, [address] term (current) use [place] [address] John, of opiate is, [place], John, Caterina, analgesic [id number] [place], , [place]. [place], [place], [id number] tel: [phone] , [place] [id number] . tel: tel: [phone] OFFICE/OUTPAT [facility] Back Pain Other spondylosis, Aug K angas Referring IENT VISIT, [facility] (chief lumbar [place]. Provider : EST Pain Bison complaint) regionFibromyalgia 1 [address] [facility], Pain in left John, Will J, [address] kneePain in right [place] [address] John, kneePain in left is, [place], John, Caterina, shoulderPain in [id number] [place], right hipChronic , [place]. s, [place], [id number] migraine without tel:+ [phone] , [place] aura, intractable, [id number] . tel: without status tel: [phone] migrainosusOsteoar [phone] thritisPain in thoracic spineAnxiety disorder, unspecifiedPain in left hipPostlaminectomy syndrome, not elsewhere classifiedRadiculo shane, lumbar regionOther spondylosis, cervical regionLong term (current) use of opiate analgesicEncounter for therapeutic drug level monitoring OFFICE VISIT, [facility] Back Pain Other spondylosis, K [facility] Referring [facility] (chief lumbar [place]. Provider: TELEMEDICINE Pain Caterina complaint) [facility]Fibromyalgia 1 [facility] [facility], Pain in left John, Will J, [address] kneePain in right [place] [address] John, kneePain in left is, [place], John, Caterina, shoulderPain in [id number] [place], right hipChronic , [place]. s, [place], [id number] migraine without tel:+ [phone] , [place] aura, intractable, [id number] . tel: without status tel: [phone] migrainosusOsteoar [phone] thritisPain in thoracic spineAnxiety disorder, unspecifiedPain in left hipPostlaminectomy syndrome, not elsewhere classifiedRadiculo shane, lumbar regionOther spondylosis, cervical regionLong term (current) use of opiate analgesic OFFICE VISIT, [facility] Back Pain Other spondylosis, Kanu0 K [facility] Referring [facility] (chief lumbar [place]. Provider: TELEMEDICINE Pain B[place] complaint) [facility]Fibromyalgia 1 [address] [facility], Pain in left John, Will J, [address] kneePain in right [place] [address] John, kneePain in left is, [place], John, Caterina, shoulderPain in [id number] [place], right hipChronic , [place]. s, [place], [id number] migraine without tel:+ [phone] , [place] aura, intractable, [id number] . tel: without status tel: [phone] migrainosusOsteoar [phone] thritisPain in thoracic spineAnxiety disorder, unspecifiedPain in left hipPostlaminectomy syndrome, not elsewhere classifiedRadiculo shane, lumbar regionOther spondylosis, cervical regionLong term (current) use of opiate analgesic OFFICE VISIT, [facility] Back Pain Other spondylosis, [facility] Ref[facility] (chief lumbar [place]. Provider: TELEMEDICINE Pain B[place] complaint) regionFibromyalgia 1 [address] [facility], Pain in left John, Will J, [address] kneePain in right [place] [address] John, kneePain in left is, [place], John, [place], shoulderPain in [id number] [place], right hipChronic , [place]. s, [place], [id number] migraine without tel: [phone] , [place] aura, intractable, [id number] . tel: without status tel: [phone] migrainosusOsteoar [phone] thritisPain in thoracic spineAnxiety disorder, unspecifiedPain in left hipPostlaminectomy syndrome, not elsewhere classifiedRadiculo shane, lumbar regionOther spondylosis, cervical regionLong term (current) use of opiate analgesic [facility] Back Pain Other spondylosis, Mario Referring [facility] (chief lumbar [place]. Provider: Pain B[place] complaint) regionFibromyalgia 1 [address] [facility], Pain in left John, Will J, [address] kneePain in right [place] [address] John, kneeChronic is, [place], John, [place], migraine without [id number] [place], aura, intractable, , [place]. [place], [place] , [id number] without status tel: [phone] , [place] migrainosusPain in [id number] . tel: right hipPain in tel: [phone] left shoulderPain 57254 45 in right shoulderOsteoarthr itisPain in thoracic spineAnxiety disorder, unspecifiedPain in left hipPostlaminectomy syndrome, not elsewhere classifiedRadiculo shane, lumbar regionOther spondylosis, cervical regionLong term (current) use of opiate analgesic OFFICE VISIT, [facility] Back Pain Other spondylosis, Mar-2 K bakarias Referring [facility] (chief lumbar [place]. Provider: TELEMEDICINE Pain Caterina complaint) regionFibromyalgia 1 [address] [facility], Pain in left John, Will J, [address] kneePain in right [place] [address] John, kneeChronic is, [place], John, Caterina, migraine without [id number] [place], aura, intractable, , [place]. [place], [place] , [id number] without status tel: [phone] , [place] migrainosusPain in [id number] . tel: right hipPain in tel: [phone] left shoulderPain 24818 45 in right shoulderOsteoarthr itisPain in thoracic spineAnxiety disorder, unspecifiedPain in left hipPostlaminectomy syndrome, not elsewhere classifiedRadiculo shane, lumbar regionOther spondylosis, cervical regionLong term (current) use of opiate analgesic OFFICE VISIT, [facility] Back Pain Pain in left Fe- Mario Referring [facility] (chief hipPostlaminectomy [place]. P rovider: TELEMEDICINE Pain Caterina complaint) syndrome, not [address] [facility], elsewhere John, Endy J, [address] classifiedRadiculo [place] [address] John, shane, lumbar is, [place], John, [place], regionOther [id number] [place], spondylosis, , [place]. s, [place], [id number] cervical tel: [phone] , [place] regionOther [id number] . tel: spondylosis, tel: [phone] lumbar [id number] regionFibromyalgia Pain in left kneePain in right kneeChronic migraine without aura, intractable, without status migrainosusPain in right hipPain in left shoulderPain in right shoulderOsteoarthr itisPain in thoracic spineAnxiety disorder, unspecifiedLong term (current) use of opiate analgesic OFFICE VISIT, [facility] Back Pain Pain in left [facility] Referring [facility] (chief hipPostlaminectomy [facility]. P rovider: TELEMEDICINE Pain B[place] complaint) syndrome, not [address] [facility], elsewhere John, Will J, [address] classifiedRadiculo [place] [address] John, shane, lumbar is, [place], John, Caterina, regionOther [id number] [place], spondylosis, , [place]. [place], [place], 282224303 cervical tel: [phone] , [place] regionOther [id number] . tel: spondylosis, tel: 2 [phone] lumbar [id number] regionFibromyalgia Pain in left kneePain in right kneeChronic migraine without aura, intractable, without status migrainosusPain in right hipPain in left shoulderPain in right shoulderOsteoarthr itisPain in thoracic spineAnxiety disorder, unspecifiedLong term (current) use of opiate analgesic OFFICE VISIT, [facility] Back Pain Pain in left [facility] Referring [facility] (chief hipPostlaminectomy [facility]. P rovider: TELEMEDICINE Pain Bison complaint) syndrome, not 0 7235 [facility], elsewhere John, Will J, [address] classifiedRadiculo [place] [address] John, shane, lumbar is, [place], John, Bison, regionOther [id number] [place], spondylosis, , [place]. [place], [place], 562618612 cervical tel: [phone] , [place] regionOther [id number] . tel: spondylosis, tel: 2 [phone] lumbar [id number] regionFibromyalgia Pain in left kneePain in right kneeChronic migraine without aura, intractable, without status migrainosusPain in right hipPain in left shoulderPain in right shoulderOsteoarthr itisPain in thoracic spineAnxiety disorder, unspecifiedLong term (current) use of opiate analgesic OFFICE VISIT, [facility] Back Pain Postlaminectomy [facility] Referring EST [facility] (chief syndrome, not [place]. Provid er: TELEMEDICINE Pain Bison complaint) elsewhere 0 7235 [facility], classifiedRadiculo Endy Lopez J, [address] shane, lumbar [place] 7235 [facility] John, regionOther is, [place], John, Caterina, spondylosis, [id number] [place], cervical , [place]. [place], [place], 386582900 regionOther tel: [phone] , [place] spondylosis, [id number] . tel: lumbar tel: [phone] regionFibromyalgia 8412 345 Pain in left kneePain in right kneeChronic migraine without aura, intractable, without status migrainosusPain in left hipPain in right hipPain in left shoulderPain in right shoulderOsteoarthr itisPain in thoracic spineAnxiety disorder, unspecifiedLong term (current) use of opiate analgesic OFFICE/OUTPAT [facility] Back Pain Postlaminectomy Gonzalez as Referring IENT VISIT, [facility] (chief syndrome, not [place]. Pr ovider: EST Pain Caterina complaint) elsewhere 0 [facility]235 [facility], classifiedRadiculo Endy Lopez J, [address] shane, lumbar [place] 7235 O [facility] John, regionOther is, [place], John, Bison, spondylosis, [id number] [place], cervical , [place]. [place], MN, 473059118 regionOther tel: [phone] , [place] spondylosis, 72782885 . tel: lumbar tel: [phone] regionFibromyalgia 8412 345 Pain in left kneePain in right kneeChronic migraine without aura, intractable, without status migrainosusPain in left hipPain in right hipPain in left shoulderPain in right shoulderOsteoarthr itisPain in thoracic spineAnxiety disorder, unspecifiedLong term (current) use of opiate analgesicEncounter for therapeutic drug level monitoring OFFICE VISIT, [facility] Back Pain Postlaminectomy Gonzalez as Referring EST [facility] (chief syndrome, not [place]. Provid er: TELEMEDICINE Pain Caterina complaint) elsewhere 0 7235 [facility], classifiedRadiculo John, Will J, [address] shane, lumbar [place] [address] John, regionOther is, [place], John, Caterina, spondylosis, [id number] [place], cervical , [place]. [place], MN, 430181191 regionOther tel: [phone] , [place] spondylosis, [id number] . tel: lumbar regionLong tel: [phone] term (current) use 8412 345 of opiate analgesicAnxiety disorder, unspecifiedFibromy algiaPain in left kneePain in right kneeChronic migraine without aura, intractable, without status migrainosusPain in left hipPain in right hipPain in left shoulderPain in right shoulderOsteoarthr itisPain in thoracic spine OFFICE VISIT, [facility] Back Pain Postlaminectomy Yeimy en Referring [facility] (chief syndrome, not Venu. Provid er: TELEMEDICINE Pain Sharon complaint) elsewhere 0 [address] [facility], [facility] Jermaine l J, [address] shane, lumbar 11 Umair [address] John, regionOther 100, John, Caterina, spondylosis, [place], cervical e, MN, s, MN, 322141741 regionOther [id number] [phone] , [place] spondylosis, , [place]. . tel: lumbar regionLong tel: te l: [phone] term (current) use [id number] 841 2345 of opiate analgesicAnxiety disorder, unspecified [facility] Postlaminectomy RN RN. Refe [facility] syndrome, not [address] Prov ider: Pain [place] elsewhere 0 [facility], classified [place] Will J, [address] is, [place], [address] John, [id number] John, Caterina, , [place]. [place], tel: s, [place], [id number] [id number] [phone] , [place] . tel: tel: [phone] [facility] Postlaminectomy Ko Ref [facility] Surgery syndrome, not Gi. Provider: Pain Center elsewhere [address] [facility], classified John Endy J, [address] [place] [address] John, is, [place], John, Bison, [id number] [place], , [place]. [place], MN, 349703317 tel:+ [phone] , US [id number] . tel: tel:+[phone] OFFICE VISIT, [facility] Back Pain Postlaminectomy Kanga s Referring [facility] (chief syndrome, not [place]. Provider: TELEMEDICINE Pain complaint) elsewhere 0 7235 [facility], classifiedRadiculo Endy Lopez J, [address] shane, lumbar [place] [address] John, regionOther is, [place], John, Bison, spondylosis, [id number] [place], cervical , [place]. [place], MN, 664714568 regionOther tel: [phone] , [place] spondylosis, 27923480 . tel: lumbar regionLong tel: 2 [phone] term (current) use 8412 345 of opiate analgesicAnxiety disorder, unspecified [facility] Postlaminectomy Mario Refe [facility] syndrome, not [place]. Provid er: Pain Bison elsewhere [address] [facility], classified Endy Lopez J, [address] [place] [address] John, is, [place], John, Bison, [id number] [place], , [place]. [place], MN, 954950951 tel: [phone] , [place] [id number] . tel: tel:[phone] [facility] Postlaminectomy Koka Ref [facility] Surgery syndrome, not Gi. Provider: Pain Center elsewhere [address] [facility], classified Endy Lopez, [address] [place] [address] John, is, [place], John, Caterina, [id number] [place], , [place]. [place], MN, 582778677 tel: [phone] , [place] [id number] . tel: tel: [phone] OFFICE VISIT, [facility] Back Pain Postlaminectomy Kang s Referring [facility] (chief syndrome, not [place]. Provider: TELEMEDICINE Pain complaint) elsewhere 0 7235 [facility], classifiedRadiculo Endy Lopez, [address] shane, lumbar [place] 7235 O [facility] John, regionLong term is, [place], John Bison, (current) use of [id number] [place], opiate , [place]. [place], MN, 987615294 analgesicOther tel: [phone] , [place] spondylosis, 36969134 . tel: cervical tel: [phone] regionOther 4651270 spondylosis, lumbar region [facility] No Information [facility] [place]. Pain Caterina 0 7235 [facility], John, [address] [place], is, [place], Caterina, [id number] [place], , [place]. 206814536 tel: , [place] [id number] tel: [phone] OFFICE VISIT, [facility] Back Pain CervicalgiaPostlam K bakarias Referring [facility] (chief inectomy syndrome, [place]. P rovider: TELEMEDICINE Pain Caterina complaint) not elsewhere 0 7235 [facility], classifiedRadiculo Endy Lopez, [address] shane, lumbar [place] 7235 O [facility] John, regionLong term is, [place], John Bison, (current) use of 056874093 [place], opiate analgesic , [place]. [place], MN, 483249554 tel: [phone] , [place] 63373998 . tel: tel:[phone] Psych Dx Eval [facility] Pain disorder with Juliana e [facility] related Maikel Provider: Pain psychological 0 Peg. 7235 [facility], factorsBipolar Ohnd Will J, [address] disorder John, [address] John, [place], Caterina, is, [place], [place], 715013352 s, [place], [address]926 , [place]. [address] , [place] tel: . tel: [phone] tel: [phone] OFFICE VISIT, [facility] Back Pain Postlaminectomy Apr- Michael s Referring [facility] (chief syndrome, not [place]. Provider: TELEMEDICINE Pain complaint) elsewhere 0 [address] [facility], classifiedLong Endy Lopez, [address] term (current) use [place] [address] John, of opiate is, [place], John, Bison, analgesicRadiculop [id number] [place], athy, lumbar , [place]. s, MN, 495075276 regionCervicalgia tel: [phone] , [place] 93226643 . tel: tel: [phone] [facility] No Information Jan- [facility] [place]. Pain Bison 0 7235 [facility], John, [address] [place], is, [place], Caterina, [id number] [place], , [place]. 406503407 tel: , [place] [id number] tel: [phone] OFFICE/OUTPAT [facility] Back Pain Postlaminectomy Jan- Gonzalez as Referring IENT VISIT, [facility] (chief syndrome, not [place]. Pr ovider: EST Pain Caterina complaint) elsewhere 0 [address] [facility], classifiedLong Endy Lopez, [address] term (current) use [place] [address] John, of opiate is, [place], John, Bison, analgesicCervicalg [id number] [place], iaRadiculopathy, , [place]. s, MN, 525646955 lumbar region tel: [phone] , [place] 53748480 . tel: tel:[phone] [facility] Postlaminectomy Mar- Garcia Refe rring [facility] Surgery syndrome, not Viry. Provider: Pain Center elsewhere 0 7235 [facility], classified John, Will J, [address] [place] [address] John, is, [place], Caterina Lopez, [id number] [place], , [place]. [place], [place], 321671440 tel:+ [phone] , [place] [id number] . tel: tel:[phone] OFFICE/OUTPAT [facility] Back Pain Postlaminectomy Gonzalez as Referring IENT VISIT, [facility] (chief syndrome, not [place]. Pr ovider: EST Pain Bison complaint) elsewhere [address] [facility], classifiedCervical Edny Lopez, [address] giaRadiculopathy, [place] [address] John, lumbar regionLong is, [place], Caterina Lopez, term (current) use [id number] [place], of opiate , [place]. [place], [place], 031551119 analgesicCarrier tel:+ [phone] , [place] of Methicillin 85162241 . tel: susceptible tel:2 [phone] Staphylococcus 6750909 aureusCarrier of Methicillin resistant Staph aureusMethicillin resis staph infct causing diseases classd elswhrEncounter for therapeutic drug level monitoring [facility] Postlaminectomy [facility] syndrome, not [place]. Pain Bison elsewhere 0 7235 [facility], classified John, [address] [place], is, [place], Caterina, 406178948 MN, , [place]. 536623793 tel: , US [id number] tel: [phone] OFFICE/OUTPAT [facility] Back Pain Radiculopathy, Kanga s Referring IENT VISIT, [facility] (chief lumbar [place]. Provider : EST Pain Caterina complaint) regionPostlaminect [address] [facility], marquis syndrome, not John, Will J , [address] elsewhere [place] [address] John, classifiedCervical is, [place], Caterina Lopez, giaLong term [id number] [place], (current) use of , [place]. s, MN, 794031325 opiate analgesic tel: [phone] , [place] 36536984 . tel: tel: [phone] OFFICE/OUTPAT [facility] Back Pain Radiculopathy, Kanga s Referring IENT VISIT, [facility] (chief lumbar 7-201 [place]. Provider : EST Pain Bison complaint) regionCervicalgiaL 9 35 [facility], beryl term (current) Endy Lopez, [address] use of opiate [place] [address] John, analgesicPostlamin is, [place], John, Caterina, ectomy syndrome, 188074315 [place], not elsewhere , [place]. [place], MN, 520105123 classified tel: [phone] , [place] [id number] . tel: tel: [phone] OFFICE/OUTTNT [facility] Back Pain Chronic pain Mario Referring IENT VISIT, [facility] (chief syndromePostlamine 6-201 [place] . Provider: EST Pain Caterina complaint) ctomy syndrome, [address] [facility], not elsewhere Endy Lopez, [address] classifiedRadiculo [place] [address] John, shane, lumbar is, [place], John, Caterina, regionCervicalgiaL 774173805 [place], beryl term (current) , [place]. [place], [place] , 431170729 use of opiate tel: [phone] , [place] analgesic 21886712 . tel: tel: [phone] OFFICE/OUTPAT [facility] Back Pain custodial Mario Re ferring IENT VISIT, [facility] (chief (current) use of 9-201 [place]. Provider: EST Pain Bison complaint) opiate 9 [facility], analgesicPostlamin Endy Lopez, [address] ectomy syndrome, [place] [address] John, not elsewhere is, [place], John, Bison, classifiedRadiculo [id number] [place], shane, lumbar , [place]. s, MN, 356335190 regionCervicalgia tel: [phone] , [place] 49284433 . tel: tel:[phone] OFFICE/OUTPAT [facility] Back Pain Postlaminectomy Carlos as Referring IENT VISIT, [facility] (chief syndrome, not 0-201 [place]. Pr ovider: EST Pain Caterina complaint) elsewhere [address] [facility], classifiedLow back John, Will J, [address] painCervicalgiaLon [place] [address] John, g term (current) is, [place], John, Caterina, use of opiate 623048819 [place], analgesic , [place]. [place], MN, 352149610 tel: [phone] , [place] 70304438 . tel: tel:[phone] OFFICE/OUTPAT [facility] Back Pain Postlaminectomy Carlos as Referring IENT VISIT, [facility] (chief syndrome, not 0-201 [place]. Pr ovider: EST Pain Caterina complaint) elsewhere [address] [facility], classifiedLow back John, Will J, [address] painCervicalgiaLon [place] [address] John, g term (current) is, [place], John, Caterina, use of opiate [id number] [place], analgesic , [place]. [place], MN, 148654716 tel: [phone] , US 13120221 . tel: tel:[phone] OFFICE/OUTPAT [facility] Back Pain Postlaminectomy Carlos as Referring IENT VISIT, [facility] (chief syndrome, not 1-201 [place]. Pr ovider: EST Pain Caterina complaint) elsewhere [address] [facility], classifiedLow back John, Will J, [address] painCervicalgiaEnc [place] [address] more [place] for is, [place], John, Caterina, therapeutic drug [id number] [place], level , [place]. [place], [place], 683622811 monitoringLong tel: [phone] , [place] term (current) use 18876544 . tel: of opiate tel: [phone] analgesic [id number] OFFICE/OUTPAT [facility] Back Pain Postlaminectomy March- Gonzalez as Referring IENT VISIT, [facility] (chief syndrome, not 1-201 [place]. Pr ovider: EST Pain Caterina complaint) elsewhere [address] [facility], classifiedLow back John, Will J, [address] painCervicalgiaLon [place] [address] John, g term (current) is, [place], John, Caterina, use of opiate 559076293 [place], analgesic , [place]. [place], [place], 844447570 tel: [phone] , [place] 08289021 . tel: tel: [phone] OFFICE/OUTPAT [facility] Back Pain Postlaminectomy Apr-0 Garcia Referring IENT VISIT, [facility] (chief syndrome, not 2-201 Viry. Pr ovider: EST Pain Bison complaint) elsewhere [address] [facility], classifiedRadiculo John, Will J, [address] shane, lumbar [place] 7235 O [facility] John, regionCervicalgiaL is, [place], John, Bison, beryl term (current) 396230175 [place], use of opiate , [place]. s, MN, 702182873 analgesic tel: [phone] , US 23059268 . tel: tel:[phone] OFFICE/OUTPAT [facility] Back Pain Chronic pain Nov- Mario Referring IENT VISIT, [facility] (chief syndromeRadiculopa 3-201 [place] . Provider: EST Pain Caterina complaint) thy, lumbar [address] [facility], regionLow back John, Will J, [address] painLong term [place] [address] John, (current) use of is, [place], John, Bison, opiate analgesic 778339707 [place], , [place]. [place], [place], 805551900 tel: [phone] , [place] 63659735 . tel: tel:[phone] [facility] Postlaminectomy Nov- Mario Refe [facility] syndrome, not 3-201 [place]. Provid er: Pain Bison elsewhere [address] [facility], classified Endy Lopez, [address] [place] [address] John, is, [place], Caterina Lopez, [id number] [place], , [place]. [place], [place], 105457686 tel: [phone] , [place] [id number] . tel: tel:[phone] OFFICE/OUTPAT [facility] Back Pain Radiculopathy, Kanga s Referring IENT VISIT, [facility] (chief lumbar regionLow [place]. Provider: EST Pain Caterina complaint) back painLong term [address] [facility], (current) use of Endy Lopez, 7235 [facility] opiate analgesic [place] [address] John, is, [place], Caterina Lopez, [id number] [place], , [place]. [place], [place], 119537539 tel: [phone] , [place] 60940581 . tel: tel:[phone] [facility] Postlaminectomy Sep-0 Mario Refe [facility] syndrome, not 1-201 [place]. Provid er: Pain Bison elsewhere [address] [facility], classified Endy Lopez, [address] [place] [address] John, is, [place], Caterina Lopez, [id number] [place], , [place]. [place], [place], 565415021 tel: [phone] , US [id number] . tel: tel:[phone] [facility] Postlaminectomy Aug- Garcia Refe [facility] Surgery syndrome, not 5-201 Viry. Provider: Pain Center elsewhere [address] [facility], classified Endy Lopez, [address] [place] [address] John, is, [place], Caterina Lopez, [id number] [place], , [place]. [place], [place], 326349587 tel: [phone] , US [id number] . tel: tel: [phone] OFFICE/OUTPAT [facility] Back Pain Postlaminectomy Oct-2 Gonzalez as Referring IENT VISIT, [facility] (chief syndrome, not 2-201 [place]. Pr ovider: EST Pain Caterina complaint) elsewhere [address] [facility], classifiedRadiculo John Will J, [address] shane, lumbar [place] [address] John, regionLow back is, [place], John, Caterina, pain 595231762 [place], , [place]. [place], [place], 142631057 tel: [phone] , US 60486640 . tel: tel: [phone] [facility] Postlaminectomy Oct-0 Mario Refe [facility] syndrome, not 1-201 [place]. Provid er: Pain Bison elsewhere [address] [facility], classifiedLow back John, Will J, [address] pain [place] [address] John, is, [place], Chandana Lopeza, [id number] [place], , [place]. [place], [place], 491296064 tel: [phone] , [place] [id number] . tel: tel: [phone] [facility] Postlaminectomy Sep-2 Garcia Refe [facility] Surgery syndrome, not 7-201 Viry. Provider: Pain Center elsewhere 8 7235 [facility], classified John, Will J, [address] [place] [address] John, is, [place], Caterina Lopez, [id number] [place], , [place]. [place], [place], 026631760 tel: [phone] , [place] [id number] . tel: tel:[phone] OFFICE/OUTPAT [facility] Back Pain Chronic pain Sep-1 Mario Referring IENT VISIT, [facility] (chief syndromePostlamine [place] . Provider: EST Pain Bison complaint) ctomy syndrome, 8 [address] [facility], not elsewhere Endy Lopez, [address] classifiedRadiculo [place] [address] John, shane, lumbar is, [place], John, Bison, regionLow back [id number] [place], pain , [place]. [place], [place], 956003930 tel: [phone] , US [id number] . tel: tel:+ [phone] OFFICE/OUTPAT [facility] Back Pain Chronic pain Sep-0 Mario Referring IENT VISIT, [facility] (chief syndromeCervicalgi [place] . Provider: EST Pain Bison complaint) aPostlaminectomy 8 [address] [facility], syndrome, not John, Endy J, [address] elsewhere [place] [address] John, classifiedLow back is, [place], John, Bison, painRadiculopathy, 284176394 [place], lumbar region , [place]. [place], [place], 914437881 tel: [phone] , US [id number] . tel: tel: [phone] OFFICE/OUTPAT [facility] Back Pain Postlaminectomy Aug-0 Gonzalez as Referring IENT VISIT, [facility] (chief syndrome, not [place]. Pr ovider: EST Pain Bison complaint) elsewhere 8 [address] [facility], classifiedChronic Endy Lopez J , [address] pain [place] [address] John, syndromeCervicalgi is, [place], John, Caterina, aLow back pain [id number] [place], , [place]. [place], [place], 312575846 tel: [phone] , US 73243714 . tel: tel: [phone] OFFICE/OUTPAT [facility] Back Pain Chronic pain Kanu-0 Mario Referring IENT VISIT, [facility] (chief syndromeCervicalgi 6 [place] . Provider: EST Pain Caterina complaint) aLow back pain 8 [address] [facility], John, Endy J, [address] [place] [address] John, is, [place], Chandana Lopeza, [id number] [place], , [place]. [place], [place], 806062177 tel: [phone] , [place] [id number] . tel: tel:[phone] OFFICE/OUTPAT [facility] Back Pain CervicalgiaChronic Apr-1 K angas Referring IENT VISIT, [facility] (chief pain syndromeLow 3-201 [place]. Provider: EST Pain Caterina complaint) back painLumbago 8 [address] [facility], with sciatica, John, Endy J, [address] left [place] [address] John, sidePostlaminectom is, [place], John, Caterina, y syndrome, not [id number] [place], elsewhere , [place]. s, [place], 330400650 classifiedLong tel:43 , [place] term (current) use 32943041 . tel: of opiate tel: [phone] analgesic [phone] OFFICE/OUTPAT [facility] Back Pain CervicalgiaChronic Apr-0 K angas Referring IENT VISIT, [facility] (chief pain syndromeLow 6-201 [place]. Provider: EST Pain Bison complaint) back 8 7235 [facility], painPostlaminectom Endy Lopez J, [address] y syndrome, not [place] [address] John, elsewhere is, [place], John, Bison, classified [id number] [place], , [place]. [place], [place], 900524903 tel: [phone] , [place] [id number] . tel: tel:[phone] OFFICE/OUTPAT [facility] Back Pain CervicalgiaChronic Feb-0 K angas Referring IENT VISIT, [facility] (chief pain syndromeLow 6-201 [place]. Provider: EST Pain Caterina complaint) back [address] [facility], painPostlaminectom John, Endy J, [address] y syndrome, not [place] [address] John, elsewhere is, [place], John Caterina, classified [id number] [place], , [place]. [place], [place], 675534055 tel: [phone] , US [id number] . tel: tel: [phone] OFFICE/OUTPAT [facility] Back Pain CervicalgiaChronic K angas Referring IENT VISIT, [facility] (chief pain syndromeLow 8-201 [place]. Provider: EST Pain Caterina complaint) back [address] [facility], painPostlaminectom Endy Lopez, [address] y syndrome, not [place] 7235 [facility] John, elsewhere is, [place], Caterina Lopez, classified [id number] [place], , [place]. [place], [place], 765334428 tel:[phone] , [place] [id number] . tel: tel: [phone] OFFICE/OUTPAT [facility] Back Pain CervicalgiaLow Kanga s Referring IENT VISIT, [facility] (chief back 0-201 [place]. Provider : EST Pain Bison complaint) painPostlaminectom [address] [facility], y syndrome, not John, Will J, [address] elsewhere [place] 7235 [facility] John, classified is, [place], Chandana Lopeza, [id number] [place], , [place]. [place], [place], 225899838 tel:[phone] , [place] [id number] . tel: tel: [phone] OFFICE/OUTTNT [facility] Back Pain Postlaminectomy Gonzalez as Referring IENT VISIT, [facility] (chief syndrome, not 9-201 [place]. Pr ovider: EST Pain Caterina complaint) elsewhere [address] [facility], classifiedLow back John, Will J, [address] painCervicalgia [place] [address] [facility] [place], [place], [place], Chandana Lopeza, [id number] [place], , [place], [place], [id number] tel:[phone] , [place] [id number] . tel: tel: [phone] OFFICE/OUTPAT [facility] Back Pain Low back May- Mario Ref erring IENT VISIT, [facility] (chief painCervicalgiaChr [place] . Provider: EST Pain Caterina complaint) onic pain 7 [facility], syndromePostlamine John, Will J, [address] ctomy syndrome, [place] [address] John, not elsewhere is, [place], classified [id number] [place], , [place], [place], [id number] tel: [phone] , [place] [id number] . tel: tel: [phone] OFFICE/OUTPAT [facility] Back Pain Low back March-3 Mario Ref erring IENT VISIT, [facility] (chief painCervicalgiaChr [facility] . Provider: EST Pain Bison complaint) onic pain 7 7235 [facility], syndromePostlamine John, Will J, [address] ctomy syndrome, [place] [address] John, not elsewhere is, [place], classified [id number] [place], , [place], [address] tel: [phone] , [place] [id number] . tel: tel: [phone] OFFICE/OUTPAT [facility] Back Pain Low back March-0 Mario Ref erring IENT VISIT, [facility] (chief painCervicalgiaChr [facility] . Provider: EST Pain Caterina complaint) onic pain syndrome 7 [address] [facility], John, Will J, [address] [place] [address] [place], [place], [place], Caterina Lopez, [id number] [place], , [place], [place], [id number] tel: [phone] , [place] [id number] . tel: tel: [phone] OFFICE/OUTPAT [facility] Back Pain CervicalgiaChronic Apr-0 K angas Referring IENT VISIT, [facility] (chief pain syndromeLow [place]. Provider: EST Pain Caterina complaint) back [address] [facility], painPostlaminectom Endy Lopez, [address] y syndrome, not [place] [address] [place], elsewhere [place], [place], Caterina Lopez, classified [id number] [place], , [place], [place], [address] tel:[phone] , [place] [id number] . tel: tel:[phone] OFFICE/OUTPAT [facility] Back Pain Low back Jan- Mario Ref erring IENT VISIT, [facility] (chief painCervicalgiaChr [place] . Provider: EST Pain Caterina complaint) onic pain [address] [facility], syndromePostlamine Endy Lopez, [address] ctomy syndrome, [place] [address] [place], not elsewhere [place], [place], Caterina Lopez, classified [id number] [place], , [place], [id number] tel: [phone] , [place] [id number] . tel: tel:[phone] OFFICE/OUTPAT [facility] Back Pain CervicalgiaLow Dec- Kanga s Referring IENT VISIT, [facility] (chief back painChronic [place]. Provider: EST Pain Caterina complaint) pain syndrome 7 35 [facility], Endy Lopez, [address] [place] [address] [place], [place], [place], Caterina Lopez, [id number] [place], , [place], [place], [id number] tel: [phone] , [place] [id number] . tel: tel:[phone] OFFICE/OUTPAT [facility] Back Pain Low back Abilio- Mario Ref erring IENT VISIT, [facility] (chief painCervicalgiaChr [place] . Provider: EST Pain Caterina complaint) onic pain syndrome 7 7235 [facility], John, Will J, [address] [place] [address] [place], [place], [place], John, Caterina, [id number] [place], , [place], [address] tel: [phone] , [place] [id number] . tel: tel:[phone] OFFICE/OUTPAT [facility] Back Pain Low back Dec-0 Mario Ref erring IENT VISIT, [facility] (chief painCervicalgiaPos 2[address] [place] . Provider: EST Pain Caterina complaint) tlaminectomy [address] [facility], syndrome, not John, Will J, [address] elsewhere [place] [address] Jonh, classifiedChronic [place], [place], Caterina Lopez, pain syndrome [id number] Janae MATHEWS, , [place]. [place], [place], [address] tel:[phone] , [place] [id number] . tel: tel: [phone] OFFICE/OUTPAT [facility] Back Pain Low back Nov-0 Mario Ref erring IENT VISIT, [facility] (chief painCervicalgiaPos 1- [place] . Provider: EST Pain Bison complaint) tlaminectomy [address] [facility], syndrome, not John, Will J, [address] elsewhere [place] [address] John, classified [place], [place], John Caterina, [id number] [place], , [place], [place], [address] tel:[phone] , [place] [id number] . tel: tel: [phone] OFFICE/OUTPAT [facility] Back Pain Lumbago with Aug- Van Referring IENT VISIT, [facility] (chief sciatica, left 4-[address] [place] Provider: EST Pain Bison complaint) sideLong term 6 Kera. [facility], (current) use of [address] Will J, [address] opiate John, [address] John, analgesicCervicalg [place] Kalin e, Caterina, [place], [place], [place], [id number] [place], [place], [id number] , [place]. [phone] , [place] tel: . tel: [phone] tel: [phone] OFFICE/OUTPAT [facility] Back Pain CervicalgiaLow Kanga s Referring IENT VISIT, [facility] (chief back [place]. Provider : EST Pain Caterina complaint) painPostlaminectom [address] [facility], y syndrome, not John, Will J, [address] elsewhere [place] [address] John, classified [place], [place], John, Caterina, [id number] [place], , [place], [place], [address] tel:[phone] , [place] [id number] . tel: tel: [phone] OFFICE/OUTPAT [facility] Back Pain Low back Mario Ref erring IENT VISIT, [facility] (chief painCervicalgiaPos [place] . Provider: EST Pain Caterina complaint) tlaminectomy [address] [facility], syndrome, not John, Will J, [address] elsewhere [place] [address] John, [place], [place], John, Bison, [id number] [place], , [place], [place], [address] tel:[phone] , [place] [id number] . tel: tel: [phone] OFFICE/OUTPAT [facility] Back Pain CervicalgiaLow Kanga s Referring IENT VISIT, [facility] (chief back painLumbago [place]. Provider: EST Pain Bison complaint) with sciatica, 6 7[facility], left side John, Will J, [address] [place] [address] [place], [place], [place], John, Bison, [id number] [place], , [place], [place], [address] tel:[phone] , [place] [id number] . tel: tel: [phone] OFFICE/OUTPAT [facility] Back Pain Low back Kanu-1 Mario Ref erring IENT VISIT, [facility] (chief painCervicalgia 4-201 [place]. Provider: EST Pain Caterina complaint) 6 [address] [facility], Endy Lopez, [address] [place] [address] [place], [place], [place], JohnChandanaa, [id number] [place], , [place], [place], [address] tel:[phone] , [place] [id number] . tel: tel:[phone] OFFICE/OUTPAT [facility] Back Pain CervicalgiaLow March- Kanga s Referring IENT VISIT, [facility] (chief back painLumbago 0-201 [place]. Provider: EST Pain Bison complaint) with sciatica, 6 [address] [facility], left John, Will J, [address] sidePostlaminectom [place] 7 [address] John, y syndrome, not [place], [place], John, Caterina, elsewhere [id number] [place], classified , [place], [place], [address] tel: [phone] , [place] [id number] . tel: tel:[phone] OFFICE/OUTPAT [facility] Back Pain Low back Apr-2 Mario Ref erring IENT VISIT, [facility] (chief painCervicalgiaLum 2-201 [place] . Provider: EST Pain Caterina complaint) bago with 6 [facility], sciatica, left Endy Lopez J, [address] side [place] [address] [place], [place], Chandana Lopeza, [id number] [place], , [place], [place], [address] tel: [phone] , [place] [id number] . tel: [phone] OFFICE/OUTPAT [facility] Back Pain Low back Apr-0 Mario Ref erring IENT VISIT, [facility] (chief painCervicalgia 6-201 [place]. Provider: EST Pain Bison complaint) 6 [facility], Endy Lopez J, [address] [place] [address] [place], [place], [place], JohnCaterina, [id number] [place], , [place], [place], [address] tel: [phone] , [place] [id number] . tel: tel: [phone] OFFICE/OUTPAT [facility] Back Pain Low back Mar-2 Mario Ref erring IENT VISIT, [facility] (chief painCervicalgiaLum 5-201 [place] . Provider: NEW Pain Bison complaint) bago with 6 7[address] [facility], sciatica, left John, Will J, [facility] [facility] sideLong term [place] [address] John, (current) use of [place], [place], John, Caterina, opiate [id number] [place], analgesicPostlamin , [place]. [place], [place] , [id number] ectomy syndrome, tel: [phone] , [place] not elsewhere [id number] . tel: classified tel: [phone] Family History Family Member Type Diagnosis Age At Onset Mother Problem (finding) back pain Payers Payer name Insurance type Covered constitution party ID Authorization(s ) Medicare [id number] [employer] [facility] [id number] Social History Type Description Quantity Date Captured Comments Alcohol Use Details No Caffeine Use Details Unknown Tobacco Use Status Moderate cigarette smoker (10-19 Ju - cigs/day) Smoking Status Heavy tobacco smoker Sex Female Chief Complaint And Reason For Visit From encounter dated '05/26/2022 11:35'. Back Pain (chief complaint). Description: Duration: chronic. The problem is worsening. It occurs pers istently. The client describes the pain as an ache, burning, sharp, stabbing and tingling. Symptoms are aggravated by ascending stairs, bending, descending stairs, lifting, lying/rest, running, sitting, standing, twisting, walking, housework, movement and prolonged positioning. Symptoms are relieved by heat, ice, pain meds/drugs and TENS. Reason For Referral Reason For Referral No Information Plan Of Treatment Date Type Action Status Goal UDT. Due on due Goal AST (SGOT). Due on d ue Goal Tobacco Use. Due on due Goal OARS. Due on due Goal Lipid panel. Due on due Goal Order Annual PT. Due on due Goal CURER ACID DRUM Paperwork. Due on due Goal METHODS SPECIALIST ENGINEER Scanned. Due on due Goal Height. Due on due Goal Unhealthy drug use screening. Du e on due Goal Review Allergy List. Due on due Goal ALT (SGPT). Due on d ue Goal HPV. Due on due Goal Creatinine. Due on d ue Goal Weight. Due on due Goal Hepatitis C screening. Due on Goal Update Social History. Due on Goal Medication Reconciliation. Due o n due Goal PHQ-9. Due on due Goal CT-Colonography. Due on due Goal FIT-DNA. Due on due Goal FIT. Due on due Goal Zoster vaccine (1st). Due on due Goal Medication Reconciliation. Due o n due Goal Creatinine. Due on d ue Goal Weight. Due on due Goal CT-Colonography. Due on due Goal FIT-DNA. Due on due Goal PHQ-9. Due on due Goal FIT. Due on due Goal CURER ACID DRUM Paperwork. Due on due Goal Review Allergy List. Due on due Goal Tobacco Use. Due on due Goal UDT. Due on due Goal HPV. Due on due Goal AST (SGOT). Due on d ue Goal METHODS SPECIALIST ENGINEER Scanned. Due on due Goal Unhealthy drug use screening. Du e on due Goal Order Annual PT. Due on due Goal OARS. Due on due Goal ALT (SGPT). Due on d ue Goal Height. Due on due Goal Update Social History. Due on du e Goal Lipid panel. Due on due Goal Zoster vaccine (1st). Due on due Goal Hepatitis C screening. Due on du e Goal ALT (SGPT). Due on d ue Goal CURER ACID DRUM Paperwork. Due on due Goal UDT. Due on due Goal METHODS SPECIALIST ENGINEER Scanned. Due on due Goal OARS. Due on due Goal AST (SGOT). Due on d ue Goal FIT. Due on due Goal Height. Due on due Goal PHQ-9. Due on due Goal CT-Colonography. Due on due Goal Tobacco Use. Due on due Goal Zoster vaccine (). Due on due Goal Order Annual PT. Due on due Goal Unhealthy drug use screening. Du e on due Goal Hepatitis C screening. Due on du e Goal HPV. Due on due Goal Review Allergy List. Due on due Goal Creatinine. Due on d ue Goal FIT-DNA. Due on due Goal Lipid panel. Due on due Goal Medication Reconciliation. Due o n due Goal Update Social History. Due on du e Goal Weight. Due on due Goal Zoster vaccine (1st). Due on due Goal Order Annual PT. Due on due Goal HPV. Due on due Goal AST (SGOT). Due on d ue Goal Medication Reconciliation. Due o n due Goal CURER ACID DRUM Paperwork. Due on due Goal ALT (SGPT). Due on d ue Goal Unhealthy drug use screening. Du e on due Goal FIT-DNA. Due on due Goal Creatinine. Due on d ue Goal Lipid panel. Due on due Goal METHODS SPECIALIST ENGINEER Scanned. Due on due Goal Tobacco Use. Due on due Goal Update Social History. Due on Goal CT-Colonography. Due on 022 due Goal OARS. Due on due Goal Review Allergy List. Due on due Goal FIT. Due on due Goal Height. Due on due Goal Hepatitis C screening. Due on Goal Weight. Due on due Goal UDT. Due on due Goal PHQ-9. Due on due Goal Update Social History. Due on du e Goal CURER ACID DRUM Paperwork. Due on due Goal METHODS SPECIALIST ENGINEER Scanned. Due on due Goal AST (SGOT). Due on d ue Goal OARS. Due on due Goal ALT (SGPT). Due on d ue Goal Review Allergy List. Due on due Goal Medication Reconciliation. Due o n due Goal PHQ-9. Due on due Goal Weight. Due on due Goal Height. Due on due Goal UDT. Due on due Goal Order Annual PT. Due on due Goal Tobacco Use. Due on due Goal UDT. Due on due Goal METHODS SPECIALIST ENGINEER Scanned. Due on due Goal CURER ACID DRUM Paperwork. Due on due Goal Update Social History. Due on Goal AST (SGOT). Due on d ue Goal OARS. Due on due Goal Height. Due on due Goal ALT (SGPT). Due on d ue Goal Order Annual PT. Due on due Goal Review Allergy List. Due on due Goal PHQ-9. Due on due Goal Weight. Due on due Goal Medication Reconciliation. Due o n due Goal Tobacco Use. Due on due Goal METHODS SPECIALIST ENGINEER Scanned. Due on due Goal OARS. Due on due Goal Update Social History. Due on du e Goal Review Allergy List. Due on due Goal Weight. Due on due Goal Tobacco Use. Due on due Goal Medication Reconciliation. Due o n due Goal Order Annual PT. Due on due Goal Height. Due on due Goal ALT (SGPT). Due on d ue Goal PHQ-9. Due on due Goal CURER ACID DRUM Paperwork. Due on due Goal UDT. Due on due Goal AST (SGOT). Due on d ue Goal Weight. Due on due Goal Medication Reconciliation. Due o n due Goal Update Social History. Due on Goal Tobacco Use. Due on due Goal Height. Due on due Goal Review Allergy List. Due on due Goal PHQ-9. Due on due Goal AST (SGOT). Due on d ue Goal UDT. Due on due Goal CURER ACID DRUM Paperwork. Due on due Goal Order Annual PT. Due on due Goal OARS. Due on due Goal METHODS SPECIALIST ENGINEER Scanned. Due on due Goal ALT (SGPT). Due on d ue Goal Weight. Due on due Goal Order Annual PT. Due on due Goal ALT (SGPT). Due on d ue Goal PHQ-9. Due on due Goal UDT. Due on due Goal Review Allergy List. Due on due Goal CURER ACID DRUM Paperwork. Due on due Goal Tobacco Use. Due on due Goal Medication Reconciliation. Due o n due Goal OARS. Due on due Goal METHODS SPECIALIST ENGINEER Scanned. Due on due Goal Update Social History. Due on e Goal AST (SGOT). Due on d ue Goal Height. Due on due Goal CURER ACID DRUM Paperwork. Due on due Goal PHQ-9. Due on due Goal Weight. Due on due Goal Height. Due on due Goal OARS. Due on due Goal Medication Reconciliation. Due o n due Goal Update Social History. Due on du e Goal METHODS SPECIALIST ENGINEER Scanned. Due on due Goal Order Annual PT. Due on due Goal Tobacco Use. Due on due Goal UDT. Due on due Goal ALT (SGPT). Due on d ue Goal Review Allergy List. Due on due Goal AST (SGOT). Due on d ue Goal CURER ACID DRUM Paperwork. Due on due Goal METHODS SPECIALIST ENGINEER Scanned. Due on due Goal PHQ-9. Due on due Goal Review Allergy List. Due on due Goal Weight. Due on due Goal Order Annual PT. Due on due Goal OARS. Due on due Goal Update Social History. Due on e Goal AST (SGOT). Due on d ue Goal UDT. Due on due Goal Height. Due on due Goal ALT (SGPT). Due on d ue Goal Medication Reconciliation. Due o n due Goal Tobacco Use. Due on due Goal Review Allergy List. Due on due Goal Weight. Due on due Goal OARS. Due on due Goal Order Annual PT. Due on due Goal ALT (SGPT). Due on d ue Goal AST (SGOT). Due on d ue Goal UDT. Due on due Goal Height. Due on due Goal Medication Reconciliation. Due o n due Goal PHQ-9. Due on due Goal Update Social History. Due on Goal Tobacco Use. Due on due Goal METHODS SPECIALIST ENGINEER Scanned. Due on due Goal CURER ACID DRUM Paperwork. Due on due Goal Medication Reconciliation. Due o n due Goal Review Allergy List. Due on due Goal UDT. Due on due Goal Weight. Due on due Goal ALT (SGPT). Due on d ue Goal PHQ-9. Due on due Goal Height. Due on due Goal CURER ACID DRUM Paperwork. Due on due Goal Update Social History. Due on Goal OARS. Due on due Goal AST (SGOT). Due on d ue Goal METHODS SPECIALIST ENGINEER Scanned. Due on due Goal Order Annual PT. Due on due Goal Tobacco Use. Due on due Goal Weight. Due on due Goal AST (SGOT). Due on d ue Goal Medication Reconciliation. Due o n due Goal ALT (SGPT). Due on d ue Goal Review Allergy List. Due on due Goal UDT. Due on due Goal Update Social History. Due on Goal METHODS SPECIALIST ENGINEER Scanned. Due on due Goal PHQ-9. Due on due Goal OARS. Due on due Goal Tobacco Use. Due on due Goal CURER ACID DRUM Paperwork. Due on due Goal Height. Due on due Goal Order Annual PT. Due on due Goal Tobacco cessation counseling com pleted Goal Tobacco Use. Due on due Goal PHQ-9. Due on due Goal ALT (SGPT). Due on d ue Goal AST (SGOT). Due on d ue Goal Order Annual PT. Due on due Goal METHODS SPECIALIST ENGINEER Scanned. Due on due Goal Update Social History. Due on Goal Review Allergy List. Due on due Goal CURER ACID DRUM Paperwork. Due on due Goal OARS. Due on due Goal Medication Reconciliation. Due o n due Goal Weight. Due on due Goal UDT. Due on due Goal Height. Due on due Goal UDT. Due on due Goal Medication Reconciliation. Due o n due Goal CURER ACID DRUM Paperwork. Due on due Goal Update Social History. Due on du e Goal PHQ-9. Due on due Goal Weight. Due on due Goal ALT (SGPT). Due on d ue Goal Review Allergy List. Due on due Goal AST (SGOT). Due on d ue Goal Order Annual PT. Due on due Goal Tobacco Use. Due on due Goal OARS. Due on due Goal Height. Due on due Goal METHODS SPECIALIST ENGINEER Scanned. Due on due Goal AST (SGOT). Due on d ue Goal METHODS SPECIALIST ENGINEER Scanned. Due on due Goal CURER ACID DRUM Paperwork. Due on due Goal ALT (SGPT). Due on d ue Goal UDT. Due on due Goal Weight. Due on due Goal PHQ-9. Due on due Goal Order Annual PT. Due on due Goal Review Allergy List. Due on due Goal Tobacco Use. Due on due Goal Height. Due on due Goal Update Social History. Due on du e Goal OARS. Due on due Goal Medication Reconciliation. Due o n due Goal AST (SGOT). Due on d ue Goal Medication Reconciliation. Due o n due Goal Weight. Due on due Goal Height. Due on due Goal PHQ-9. Due on due Goal METHODS SPECIALIST ENGINEER Scanned. Due on due Goal Tobacco Use. Due on due Goal Order Annual PT. Due on 021 due Goal UDT. Due on due Goal CURER ACID DRUM Paperwork. Due on due Goal ALT (SGPT). Due on d ue Goal Review Allergy List. Due on due Goal Update Social History. Due on e Goal OARS. Due on due Goal Tobacco cessation counseling com pleted Goal Tobacco cessation counseling com pleted Appointment Angie Mosquera BOOKED Appointment Angie Mosquera BOOKED Appointment Angie Mosquera BOOKED Future Order: Lab Order URINE DRUG CONFIRMATION (3000), Ordered Ordered on: Future Order: Lab Order Drug Test Def 22+ Cl[address] (G0483), Ordered Ordered on: Future Order: Lab Order COMPLIANCE DRUG ANALYSIS , URINE, WITH Ordered MED REPORT ([id number]), Ordered on: Future Order: Lab Order Drug Test Def 22+ Cl[address] ([id number]), Ordered Ordered on: Future Order: Lab Order Drug Test Def 22+ Cl[address] ([id number]), Ordered Ordered on: Future Order: Lab Order COMPLIANCE DRUG ANALYSIS , URINE, WITH Ordered MED REPORT ([id number]), Ordered on: Future Order: Lab Order MRSA/MSSA Screening ([id number]), Ordered Ordered on: Future Order: Lab Order COMPLIANCE DRUG ANALYSIS , URINE, WITH Ordered MED REPORT ([id number]), Ordered on: History Of Present Illness Encounter Date Complaint History Of Present I llness Back Pain Duration: chronic. T he problem is worsening. It occurs persistently. The client describes the pain as an ache, bur cam, sharp, stabbing and tingling. Symptoms a re aggravated by ascending stairs, bending, jeramie cending stairs, lifting, lying/rest, running, sitting, standing, twisting, walking, housework, movement and prolonged positioning. Symptom s are relieved by heat, ice, pain meds/drugs and TENS. Comments: Angie escalona sents for a virtual follow up and medications refi ll for her back and neck pain. Prescribed med ication offers 70% pain relief. Denies SE.Ne ck, back, L shoulder and bilateral hips/knees /shoulder pain have continued to be worse the past month. Typical flares with colder weather. Lona rwent hardware removal surgery to her L sydni johnathan on 12/30/21 with [place] in order for infection to clear. Additional surgery scheduled completed 02/26/22. Reports infection has since returned as we ll as dislocation. Following with surgeon as need ed and underwent another surgery 05/19/22 for new hardware placement. She will be in a sling f or 6-8 weeks prior to PT. Participates in HEP as able. Ongoing relief with SCS and medical beverly abis.No further questions or concerns. Back Pain Duration: chronic. T he problem is worsening. It occurs persistently. The client describes the pain as an ache, bur cam, sharp, stabbing and tingling. Symptoms a re aggravated by ascending stairs, bending, jeramie cending stairs, lifting, lying/rest, running, sitting, standing, twisting, walking, housework, movement and prolonged positioning. Symptom s are relieved by heat, ice, pain meds/drugs and TENS. Comments: Angie pre sents for a virtual follow up and medications refi ll for her back and neck pain. Prescribed med ication offers 70% pain relief. Denies SE.Ne ck, back, L shoulder and bilateral hips/knees /shoulder pain have continued to be worse the past month. Typical flares with colder weather. Unde rwent hardware removal surgery to her L sydni ulder on 12/30/21 with [place] in order for infection to clear. Additional surgery scheduled completed 02/26/22. Reports infection has since returned as we ll as dislocation. Following with surgeon as need ed. Participates in HEP as able. Ongoing relief with SCS and medical cannabis.No further questions or concerns. Comments: Angie pre sents for a follow up and medications refill f or her back and neck pain. Prescribed medicatio n offers 70% pain relief. Denies SE.Neck, back , L shoulder and bilateral hips/knees/shoulder pain have continued to be worse the past month . Neck pain is more flared from shoulder sling. Typical flares with colder weather. Underwent h ardware removal surgery to her L shoulder on 12/30/21 with [place] in order for infection to clear. Additional surgery scheduled completed 02/26/22. Sh e states this went well and will be following up with surgeon next week. Participates in HEP as able. Ongoing relief with SCS and medical beverly abis.No further questions or concerns. Back Pain Severity level is 8. Duration: chronic. The problem is worsening . It occurs persistently. The client describes the pain as an ache, burning, sharp, stabbing and tingling. Symptoms are aggravated by ascend ing stairs, bending, descending stairs, l ifting, lying/rest, running, sitting, standing, t wisting, walking, housework, movement and prolong ed positioning. Symptoms are relieved by heat, ic e, pain meds/drugs and TENS. Back Pain Duration: chronic. T he problem is worsening. It occurs persistently. The client describes the pain as an ache, bur cam, numbness, sharp and tingling. Symptoms a re aggravated by ascending stairs, bending, jeramie cending stairs, lifting, lying/rest, running, sitting, standing, twisting, walking, housework, movement and prolonged positioning. Symptom s are relieved by heat, pain meds/drugs and TENS. Comments: Angie pre sents for a virtual follow up and medications refi ll for her back and neck pain. Prescribed med ication offers 70% pain relief. Denies SE.Ne ck, back, L shoulder and bilateral hips/knees /shoulder pain have continued to be worse the past month. Neck pain is more flared from shoulder sling. Typical flares with colder weather. Unde rwent hardware removal surgery to her L sydni ulder on 12/30/21 with [facility] in order for infection to clear. Additional surgery scheduled for 02/26/22 . Participates in HEP as able. Ongoing relief with SCS and medical cannabis.No further questions or concerns. Back Pain Severity level is 9. Duration: chronic. The problem is worsening . It occurs persistently. The patient describes th e pain as an ache, burning, numbness, sharp and tingling. Symptoms are aggravated by ascend ing stairs, bending, descending stairs, l ifting, lying/rest, running, sitting, standing, t wisting, walking, housework, movement and prolong ed positioning. Symptoms are relieved by heat, pa in meds/drugs and TENS. Back Pain (comments) Angie presents for a virtual follow up and medications refill f or her back and neck pain. Prescribed medicatio n offers 70% pain relief. Denies SE.Neck, back , L shoulder and bilateral hips/knees/shoulder pain have continued to be worse the past month . Typical flares with colder weather. Underwent h ardware removal surgery to her L shoulder on 12/30/21 with [facility] in order for infection to clear. Additional surgery scheduled for 02/26/22. Particip ates in HEP as able. Ongoing relief with SCS and medical cannabis.No further questions or concern s. Back Pain Severity level is 10 . Duration: chronic. The problem is worsening . It occurs persistently. The patient describes th e pain as an ache, burning, numbness and sharp. Symptoms are aggravated by bending, lifting, ly ing/rest, movement and housework. Symptoms are relieved by heat and pain meds/drugs. Back Pain (comments) Angie presents for a virtual follow up and medications refill f or her back and neck pain. Prescribed medicatio n offers 75% pain relief. Denies SE.Neck, back , L shoulder and bilateral hips/knees/shoulder pain have continued to be worse the past month . Typical flares with colder weather. Scheduled f or hardware removal surgery on 12/30/21 with [facility] in order for infection to clear. Will discuss tx options following this with shoulder specia list. Participates in HEP as able. Ongoing relief with SCS and medical cannabis.No further questions or concerns. Back Pain (comments) Angie presents for a follow up and medications refill for her back and neck pain. Neck, back, L shoulder and bilater al hips/knees/shoulder pain have continued to be bothersome over the past month. Pain is worse jayesh by the colder weather. She states that she is scheduled for hardware removal surgery in [place] with [facility] in order for infection to ca ar. Pre-op Physical on 12/29/21 and surgery on 12/30/21. Following surgery, she continu es to plan to with shoulder specialist to discus s treatment options upon improvement of infec tion. Participates in HEP as able. Ongoing relief with SCS and medical cannabis.No further questions or concerns. Back Pain Duration: chronic. T he problem is fluctuating. It occurs persistently. Location of pain is lower back, legs and neck. The patient describes the pain as an ache. Sym ptoms are aggravated by daily activities. Back Pain (comments) Angie presents for a follow up and medications refill for her back and neck pain. Neck, back, L shoulder and bilater al hips/knees/shoulder pain have continued to be worse over the past month. Feels her fibromyalg ia pain is worse with the colder weather. Typi france flares with weather fluctuations. She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 oxyc odone- on track. Reports current medication r egimen provides 85% pain relief and allows fo r increased functionality. Denies side effects from current medication regimen.No other con cerns today. Back Pain Duration: chronic. T he problem is fluctuating. It occurs persistently. Location of pain is lower back.The patient jeramie cribes the pain as an ache. Symptoms are aggrava mary by ascending stairs, daily activities, de scending stairs, standing, twisting and walking . Symptoms are relieved by lying down, massage, pain meds/drugs and rest. Back Pain (comments) Angie is here for follow up and medications refill. Pain is wors e. 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 Was put on Warfarin, unsure if it can be held for sinus surgery or SCS revision.Presents wi th #3 oxycodone 5mg -- on track. Reports curre nt medication regimen provides 70% pain re lief. Denies side effects from current medicat ion regimen. Continues to use medical cannabis wit h benefit. C/o restless legs, inquires about a med ication for this. Back Pain Severity level is 6. Duration: chronic. The problem is worsening . It occurs persistently. Location of pain is middle back and lower back.There is no rad iation of pain. The patient describes the pain a s an ache, burning, sharp, shooting, stabbing a nd tingling. Symptoms are aggravated by daily activities. Symptoms are relieved by pain med s/drugs and rest. Back Pain Severity level is 5. Duration: chronic. The problem is fluctuati ng. It occurs persistently. Location of pain is lower back.The patient describes the pain a s an ache and burning. Symptoms are aggrava mary by ascending stairs, changing positions, daily activities, descending stairs, lifting, sta nding and twisting. Symptoms are relieved by heat , ice, lying down, pain meds/drugs and rest. Back Pain (comments) Angie is here for follow up and medications refill for her back and neck pain. She reports of having an aneurysm a nd minor stroke since her last OV. She had to cancel her scheduled SCS revision and cannot pursue it until she has her sinus surgery. She i s also working on smoking cessation and enroll ed in a program through [facility]. She also not es of increasing symptoms of restless legs.Presen ts with #5 oxycodone- on track. Reports curre nt medication regimen provides 75% pain re lief and allows for increased functionality. Denyandy s side effects from current medication regimen.N o other concerns today. Back Pain Severity level is 5. Duration: chronic. It occurs persistently. Locati on of pain is middle back, lower back and neck. Pain is radiated to the left ankle, right ankle, left thigh and right thigh.The patient de scribes the pain as an ache, burning and sharp. S ymptoms are aggravated by ascending stairs, da lakisha activities, descending stairs and walking. Symptoms are relieved by pain meds/drugs and rest. Back Pain (comments) Angie is here for follow up and medications refill. Reports of h er pain to have been worse recently. States daniel t she back pain is starting to become more bothe rsome. Says that it feels like her SCS battery has flipped which has been causing some discomf ort. She was also wondering if another lead can be placed, in hopes of better pain relief/coverage . She would also be open into possibly replacing h er Nevro device. Presents with #5 oxycodone - on track. Reports current medication regimen p rovides 60% pain relief and allows for increased functionality. Denies side effects from current medication regimen.No other concerns today. Back Pain Severity level is 8. Duration: chronic. The problem is worsening . It occurs persistently. Location of pain is lower back.The patient describes the pain a s an ache, burning, sharp and tingling. Symptoms a re aggravated by ascending stairs, bending, jeramie cending stairs, lifting, running, sitting, st anding, twisting, walking and prolonged positionin g. Symptoms are relieved by heat, lying down, ma ssage, over the counter medication, pain med s/drugs, rest and changing positions. Back Pain (comments) Patient is here for a f/u. Has #53 oxycodone remaining - on track . Medications are effective at relieving pain wi thout SE. Angie's pain has been worse since las t visit. Angie recently slipped on the ice a nd fell on the left side of her body. She plans to go to PT for her knee and will ask about exerc ises for her back. She states she has not been get ting the same pain relief she was when she first h ad the SCS. She is able to do more activities with the SCS, which she is happy about. She plans to have her SCS reprogrammed again soon. She cont inues to exercise and stretch when healthy. She is not interested in any procedures at the [facility]. PT-SABAS-RF-N/ASCS-Anisa jeaneth has Meds: Opioids-Currently ta kes oxycodone - MME 37.5 Neuropathics-Current ly takes Lyrica Muscle Relaxant- Currently takes Tizanidine Anti-Inflammatories- N/AMedical Cannabis-not certified Back Pain Severity level is 5. Duration: chronic. The problem is worsening . It occurs persistently. Location of pain is lower back.The patient describes the pain a s an ache, burning, sharp and tingling. Symptoms a re aggravated by bending, lifting, twisting an d prolonged positioning. Symptoms are relieve d by lying down, over the counter medication, pain meds/drugs, rest and changing positions. Back Pain (comments) Patient is here fo r a f/u. Has #8 oxycodone remaining - on track . Medications are effective at relieving pain wi thout SE. [place] pain has been fluctuating sin ce last visit. Angie states the SCS has been wor jackie well, but may get it fine tunned. She is wondering if she can get a SCS for her thoracic spine. She has a pulled muscle in her neck, and she is getting numbness in her left hand. Sh heaven plans on starting PT on her neck soon and does n ot need an order. She is not interested in any pr ocedures at the moment. Will continue oxycodone f or pain relief and PT as needed, no other con cerns Back Pain (comments) Patient is here fo r a f/u and SCS pre trial education. Has #0 co ntrolled medication remaining - appropriate. Medic ations are effective at relieving pain witho ut SE. Angie has been doing well and is ready to move forward with the SCS. She is aware of the pre and post operation steps. She states she will have a ride after the procedure is done. S he is getting the Nevro SCS. She is not intereste d in any procedure orders at the moment. No other concerns today Back Pain Severity level is 6. Duration: chronic. The problem is stable. I t occurs persistently. Location of pain is lower back and gluteal area. Pain is radiated to the left thigh and right thigh.The patient de scribes the pain as an ache, burning and sharp. S ymptoms are aggravated by ascending stairs, be nding, descending stairs, twisting and prolong ed positioning. Symptoms are relieved by lying do wn, over the counter medication, pain med s/drugs, stretching, rest and changing positions. Back Pain Severity level is 6. Duration: chronic. The problem is stable. I t occurs persistently. Location of pain is middle back, lower back and gluteal area. Pain i s radiated to the left thigh and right thigh.The patient describes the pain as an ache, burning and sharp. Symptoms are aggravated by ascend ing stairs, bending, descending stairs, l ifting, twisting, walking and prolonged positionin g. Symptoms are relieved by lying down, over the counter medication, pain meds/drugs, stretchi ng, rest and changing positions. Back Pain (comments) Patient is here fo r a f/u. Has #0 controlled medications remainin g - on track. Medications are effective at relievi ng pain without SE. Angie is here for education o f the SCS. She is aware of the contraindication s of the surgery. She is aware of the instruc tions of pre/post surgery. She is also here to refill her medications. She will call [facility] if e has any questions prior to the trial. No other concerns today Back Pain (comments) Patient is here fo r a f/u. Has #149 Oxycodone remaining - on track . Medications are effective at relieving pain wi thout SE. Angie's pain has been stable since la st visit. Angie is here to go over the SCS. She would like to get the SCS for her lower back. She has finished all of the qualifications for t he SCS. She is aware she will have to wait a coupl e weeks for approval. She does not want any ot her procedure orders. No other concerns today Back Pain Severity level is 6. Duration: chronic. The problem is worsening . It occurs persistently. Location of pain is middle back, lower back and gluteal area. Pain i s radiated to the left thigh and right thigh.The patient describes the pain as an ache, burning, sh yecenia and tingling. Symptoms are aggravated by as cending stairs, bending, descending stairs, s tanding, twisting, walking and prolonged positi oning. Symptoms are relieved by lying down, over the counter medication, pain meds/drugs, rest and changing positions. Back Pain Severity level is 8. Duration: chronic. The problem is worsening . It occurs persistently. Location of pain is upper back, lower back and neck. Pain is radiat ed to the left thigh and right thigh.The olayinka ent describes the pain as an ache, burning, sharp and tingling. Symptoms are aggravated by ascend ing stairs, bending, descending stairs, l ifting, running, sitting, standing, twisting, walking and prolonged positioning. Symptom s are relieved by heat, over the counter medicati on, pain meds/drugs, stretching, rest and changing positions. Back Pain (comments) Patient is here fo r a f/u. Has #4 Oxycodone remaining - on track . Medications are effective at relieving pain wi thout SE. Angie's pain has been worse since las t visit. She C/o shooting pain in her head d/t her hardware. She has gotten injections for the p ain, which relieved some pain but not all of it. S he is very interested in the pain pump and wants to know the qualifications for it. She wants to make sure that she can stay on her medical canna bis if she plans on doing an alternative treatmen t. No other concerns today Back Pain Severity level is 8. Duration: chronic. The problem is worsening . It occurs persistently. Location of pain is upper back and lower back. Symptoms are aggrava mary by ascending stairs, bending, descending stairs, lifting, running, sitting, standing, t wisting, walking and housework. Symptoms are relieved by heat, over the counter medicati on, pain meds/drugs and rest. Back Pain (comments) Patient is here fo r a f/u. Has #8 Oxycodone remaining - on track . Medications are effective at relieving pain wi thout SE. Angie needs approval for pain me dications for after her surgery on tuesday. S he C/o not being able to breathe out of one o f her nostrils. Medical cannabis is going we ll. No other concerns today. Back Pain (comments) Angie is here for follow up. Her surgeon will no longer prescribe her acute pain medications. It has been two weeks s antione her surgery. Continues to have acute pain. They gave her tizanidine which she likes bett er than the methocarbamol. They were giving her Dilaudid 2 mg also. No other concerns today. Back Pain Severity level is 8. Duration: chronic. The problem is worsening . It occurs persistently. Location of pain is lower back and neck.The patient describes th e pain as an ache, burning, sharp and tingling. Symptoms are aggravated by ascending stairs, be nding, daily activities, descending stairs, l ifting, lying/rest, running, sitting, standing, t wisting, walking and prolonged positionin g. Symptoms are relieved by heat, ice and pain m eds/drugs. Back Pain (comments) Angie is here for follow up and medication refill. Has #6 oxyco done remaining-on track. The patient states the c urrent medication regimen continues to be effe ctive at reducing pain without SE. She had her surgery to get the plate out and it went well . She states she has been starting to swallow better. The surgery was done at [facility] about 2 w eeks ago. They gave her dilaudid even though she told them she did not like it. They wanted to give her something for the post op pain. Sherri collado has however continued to take the dilaudid bu t is hoping to stop it soon. They also are having her take tizanidine instead of methocarbamol. Wh ile she was in the hospital she noticed she was not getting her lyrica and her leg pain came ba ck. She has continued to take the medical cananbis . No other concerns today. Back Pain Severity level is 6. Duration: chronic. The problem is worsening . It occurs persistently. Location of pain is lower back and neck. Pain is radiated to the left arm, right arm, left calf, right calf, left thi gh and right thigh.The patient describes th e pain as an ache, burning, sharp and tingling. Symptoms are aggravated by ascending stairs, be nding, daily activities, descending stairs, l ifting, lying/rest, running, sitting, standing, t wisting and walking. Symptoms are relieved by heat , ice, massage, pain meds/drugs and rest. Back Pain (comments) Angie is here for follow up and medication refill. Has #6 oxyco done remaining-on track. The patient states the c urrent medication regimen continues to be effe ctive at reducing pain without SE. She had shoulder surgery but then fell shortly after a nd popped her shoulder. She went back in and the y gave her more pain medications. She rec ieved addition oxycodone 10 mg for the post surg ical and injury pain. She is going in again tomor row to decide what to do. She also saw a neck and ENT who did a swallow test. Turned out the plate in her neck is blocking her ability to swallow. She is going to have the plate out and trusts her surgeon and his team. No other concerns today . Back Pain Severity level is 8. Duration: chronic. The problem is worsening . It occurs persistently. Location of pain is upper back, middle back, lower back and neck. Pain is radiated to the left calf, right calf, le ft foot, right foot, left thigh and right thig h.The patient describes the pain as an ache, bur cam, sharp, stabbing and tingling. Symptoms a re aggravated by ascending stairs, bending, douglas ly activities, descending stairs, lifting, lyi ng/rest, running, sitting, standing, twisting, walking and prolonged positioning. Symptom s are relieved by heat, ice, pain meds/drugs and changing positions. Back Pain Severity level is 6. Duration: chronic. The problem is worsening . It occurs persistently. Location of pain is lower back.The patient describes the pain a s an ache, sharp, stabbing and tingling. Sympto ms are aggravated by ascending stairs, be nding, daily activities, descending stairs, l ifting, sitting, standing, twisting, walking an d prolonged positioning. Symptoms are relieve d by pain meds/drugs, rest and changing positio ns. Back Pain (comments) Angie is here for follow up and medication refill. Has #3 oxyco done remaining-on track. The patient states the c urrent medication regimen continues to be effe ctive at reducing pain without SE. Had blad marquis and hand surgery since last OV. She is sche duled with a neck physician in November. She is a lso seeing a shoulder surgeon next week. Is using a spray medical cannabis now which is working rene y well for her. [facility] s he finishes with her current surgeries. No other concerns today. Back Pain Severity level is 8. Duration: chronic. The problem is worsening . It occurs persistently. Location of pain is upper back, lower back, legs and neck.The patient describes the pain as an ache, sharp and stab oliva. Symptoms are aggravated by ascending stairs, bending, descending stairs, lifting, lying/rest, sitting, standing, twisting, walking and prolonge d positioning. Symptoms are relieved by heat, ic e, pain meds/drugs and rest. Back Pain (comments) Angie is here for follow up and medication refill. She has no m edication remaining-due out 09/05. The patient st ates the current medication regimen continues to be effective at reducing pain without SE. Rep orts her neck pain is worse and she is having mo re headaches. She was seen by [place] who told her she has a screw loose. She was referred to Dr. Gonzalez at [facility]. She has not heard from t hem. She went camping last weekend and had a ba d fall that has flared her pain more. She had c arpal tunnel surgery a couple months ago on one jerry nd and a few days ago on the other. She also stat es she is flared from the weather. She hasn't been able to do the medical cannabis vaping as h er rigoberto is not allowing it. She states she d oes want to do the nevro stimulator after she f/u with her neck surgeon. No other concerns to day. Back Pain (comments) Angie is here for follow up and medication refill. She has #10 oxycodone remaining-on track. She had an injection at [facility] and it did not work very well so sh e will not be getting surgery. She reports sciatica pain and is curious about how to relieve it. She is very inquisitive about new treatments . She is having wrist surgery d/t carpal tunnel, t he first wrist being done tomorrow. She said s he will get Alvin for 4-5 days maximum followi ng the surgery. No other concerns today. Back Pain Severity level is 7. Duration: chronic. The problem is worsening . It occurs persistently. Location of pain is lower back and gluteal area.The patient jeramie cribes the pain as an ache, burning, sharp, shoo ting, stabbing and tingling. Symptoms are aggrava mary by bending and lifting. Symptoms are relieve d by pain meds/drugs. Back Pain (comments) Angie is here toda y for follow up evaluation and medication refills r elating to her back pain. She has #7 oxycodone rem aining - on track. The patient recently mov ed and states it aggrevated her pain. Medical ma rijuana continues to be effective for reduci ng her pain. She will be completing diagnosti c injections today through [facility]. No other concerns today. Back Pain Severity level is se maricruz. Duration: chronic. The problem is worsening . It occurs persistently. Location of pain is middle back, lower back, arms, legs and neck. The patient describes the pain as an ache, bur cam, sharp and tingling. Symptoms are aggrava mary by daily activities. Symptoms are relieve d by pain meds/drugs. Back Pain (comments) Angie is here toda y for follow up evaluation and medication refills r elating to her back pain. She has #13 oxycodone re maining - on track. She will be following up with [facility] for another surgical consult. She will be moving soon and believes she may have injured her shoulder. She will be starting massage the rapy. She c/o increased radicular symptoms i n her RUE. The patient states the current medicati on regimen continues to be effective for reduci ng pain. Medical marijuana continues to be effe ctive. No other concerns today. Back Pain Severity level is mo derate. Duration: chronic. The problem is worse cam. It occurs persistently. Location of pain is lower back and neck.The patient describes th e pain as an ache, burning, sharp and tingling. Symptoms are aggravated by daily activities. Sy mptoms are relieved by heat, ice, massage and clyde n meds/drugs. Back Pain (comments) Angie is here toda y for follow up evaluation and medication refills r elating to her back pain. She has #16 oxycodone re maining - on track. She did not receive any reli ef from her last SABAS and states it aggrevated her pain. She continues to receive significant relief from medical marijuana. Her goal is to eventually wean off her pain medication. She will be following up with her her surgeon shay ma. No other concerns today. Back Pain Severity level is mo derate-severe. Duration: chronic. The problem is changing in character. It occurs persistently. Location of pain is upper back, middle back, l ower back, neck and widespread.The patie nt describes the pain as an ache, sharp and ting ling. Symptoms are aggravated by daily activities. Symptoms are relieved by pain meds/drugs, res t and medical marijuana. Back Pain (comments) Angie is here for follow up and medication refill regarding her back pain. She has #1 Oxycodone, surplus. She was hospitalized in [place] about a w [place] ago for her back pain. She is having an epd iural steroid injection done at [facility] tomorrow. She isn't sure how well the medical cannabis is working, as her back has significantly flared -up. No other concerns today. Back Pain Duration: chronic. T he problem is worsening. It occurs persistently. Location of pain is upper back, middle back, l ower back and neck. Pain is radiated to the left arm and BL legs.The patient describes the pain a s an ache, sharp and stabbing. Symptoms a re aggravated by ascending stairs, bending, julian nging positions, daily activities, descendi ng stairs, lifting, lying/rest, sitting, standing, twisting and walking. Symptoms ar e relieved by pain meds/drugs and rest. Back Pain (comments) Angie is here toda y for follow up evaluation and medication refills r elating to her back pain. She has #8 oxycodone rem aining - on track. She continues medical [facility] and states it has been effective. The patient states her pain has been worse but her s leep has improved. She recently discontinue d Fentanyl. No other concerns today. Back Pain Severity level is mo derate-severe. Duration: chronic. The problem is changing in character. It occurs persistently. Location of pain is upper back, middle back, l ower back, neck and widespread.The patie nt describes the pain as an ache, burning, sharp and tingling. Symptoms are aggravated by daily activities. Symptoms are relieved by heat, ic e, lying down, massage, pain meds/drugs and rest. Back Pain (comments) Angie is here toda y for follow up evaluation and medication refills r elating to her back pain. She has #5 oxycodone rem aining - on track. Medical marijuana has been e ffective and she is ready to begin decreasing Fen tanyl. She has been doing PT exercises and stretc hes regularly. The patient states the current m edication regimen continues to be effective for reducing pain. No other concerns today. Back Pain Severity level is mo derate-severe. Duration: chronic. The problem is worsening. It occurs persistently. Locati on of pain is lower back, neck and widesread. Pain is radiated to the left arm, left calf, righ t calf, left foot and left thigh.The patient de scribes the pain as an ache, burning, sharp, stab oliva and tingling. Symptoms are aggravated by da lakisha activities. Symptoms are relieved by pain med s/drugs. Back Pain (comments) Angie is here toda y for follow up evaluation and medication refills r elating to her back pain. She has #1 Fentanyl and #12 oxycodone remaining - on track. She will be s tarting medical marijuana today. The patient r eports her pain has been worse lately. The pa daniella states the current medication regimen c ontinues to be effective for reducing pain. She h as not followed up with her surgeon since her la st appointment. No other concerns today. Back Pain Severity level is se maricruz. Duration: chronic. The problem is worsening . It occurs persistently. Location of pain is upper back, middle back, lower back, neck and widespread.The patient describes the pain a s an ache, burning, sharp, stabbing and tinglin g. Symptoms are aggravated by daily activities. Sy mptoms are relieved by massage and pain med s/drugs. Back Pain (comments) Angie is here toda y for follow up evaluation and medication refills r elating to her back pain. She has #2 oxycodone and #1 Fentanyl remaining - on track. The patient r eports her pain has been worse. Her speaking has improved but she still may pursue additiona l intervention. She c/o increased shoulder p ain. She also c/o temporarily increased pain in he r left hip/lower back after she recently experie nced a popping sensation. The patient states t he current medication regimen continues to be effe ctive for reducing pain. The patient would like t o pursue medical marijuana. No other concerns to day. Back Pain Severity level is mo derate-severe. Duration: chronic. The problem is worsening. It occurs persistently. Locati on of pain is upper back, middle back, lower b ack, gluteal area, neck and widespread.The patie nt describes the pain as an ache, burning, sharp and tingling. Symptoms are aggravated by bendin g, daily activities, lifting, sitting and twisting . Symptoms are relieved by heat, ice, massage, pain meds/drugs and rest. Back Pain (comments) Angie is here toda y for follow up evaluation and medication refills r elating to her back pain. She has #2 Fentanyl radha ining - on track. She is currently recovering from neck surgery and will be starting a bone g rowth stimulator. She reports experiencing increas ed radicular pain in her left shoulder. Her voice has not improved since her surgery. The patient states the current medication regimen c ontinues to be effective for reducing pain. She e xpresses some interest in pursuing medical brenda byrnes once she is more stable. No other con cerns today. Back Pain Severity level is mo derate-severe. Duration: chronic. The problem is worsening. It occurs persistently. Locati on of pain is middle back, lower back, arms, le gs, neck and abdomen.The patient describes th e pain as an ache, burning, sharp, shooting, sta bbing and tingling. Symptoms are aggravated by da lakisha activities. Symptoms are relieved by pain med s/drugs and rest. Back Pain Severity level is 10 . Duration: chronic. The problem is worsening . It occurs persistently. Location of pain is lower back and neck. Pain is radiated to the bila teral legs.The patient describes the pain a s an ache, sharp, stabbing and tingling. Sympto ms are aggravated by ascending stairs, be nding, changing positions, daily activities, de scending stairs, lifting, twisting and movemen t. Symptoms are relieved by heat, pain meds/drug s and rest. Back Pain (comments) Patient here for f ollow-up and medication refills. Patient has #1 Fentanyl patch, # 3 oxycodone, and #20 P ercocet remaining today - on track. Received perc ocet from recent neck surgery. Reports at least 50% relief from the medication and impro ves function. Neck surgery completed 08/27/16 an d is healing as expected, but has worse pain. No o ther concerns today. Back Pain Severity level is se maricruz. Duration: chronic. The problem is worsening . It occurs persistently. Location of pain is upper back, middle back, lower back, gluteal area, neck, chest, BL arms and BL legs.The olayinka ent describes the pain as an ache, sharp, shootin g, stabbing and tingling. Symptoms are aggrava mary by daily activities. Symptoms are relieve d by pain meds/drugs. Back Pain (comments) Angie is here toda y for follow up evaluation and medication refills r elating to her back pain. She has #17 oxycodone an d #1 Fentanyl remaining - 1 day short on oxycodo ne. She broke her sternum and ribs from tripping i nto a counter. She followed up with ENT who is c oordinating with her neck surgeon to determine a surgical date. The patient reports her pain has been worse due to her fall. The patient states t he current medication regimen continues to be effe ctive for reducing pain. She expresses some inter est in Medical Marijuana. No other concerns today . Back Pain (comments) Ray is here toda y for follow up evaluation and medication refills r elating to her back pain. She has #2 Fentanyl and #8 oxycodone remaining - on track. She has been experiencing increased pain in her left hip whic h radiates around her left thigh. She has been having more migraines lately. Once her surgeon rec eives medical records for her hardware she will be scheduling her neck surgery. ENT referred her to an recreation center director for additional evaluation. No other concerns today. Back Pain Severity level is se maricruz. Duration: chronic. The problem is worsening . It occurs persistently. Location of pain is lower back and neck.The patient describes th e pain as an ache, sharp, shooting, stabbing a nd tingling. Symptoms are aggravated by daily activities. Symptoms are relieved by pain med s/drugs. Back Pain Severity level is se maricruz. Duration: chronic. The problem is worsening . It occurs persistently. Location of pain is upper back, middle back, lower back, gluteal area, neck, abdominal and left shoulder. Pain is radiated to the left calf, left foot and left t high.The patient describes the pain as an ache, burning, sharp, stabbing and tingling. Symptoms a re aggravated by bending, sitting, standing an d twisting. Symptoms are relieved by pain med s/drugs. Back Pain (comments) Angie is here toda y for follow up evaluation and medication refills r elating to her back pain. She has #1 Fentanyl and #10 oxycodone remaining. She went to the ER recen tly with increased pain after receiving a diagnosi s of 2 broken ribs. She states she received #30 Percocet 5-325mg for acute pain. She is i nquiring about increasing her opioid medication be cause it has not been as effective lately. Sherri collado is preparing for an upcoming neck surger y and will be following up with ENT prior to . Her son is home but may return to the hospit al due to breathing problems. No other concerns to day. Back Pain Severity level is se maricruz. Duration: chronic. The problem is worsening . It occurs persistently. Location of pain is middle back, lower back, neck and chest. Pain is r adiated to the left calf, left thigh and right thigh.The patient describes the pain as an ache, burning, sharp and tingling. Symptoms are aggrava mary by daily activities. Symptoms are relieve d by pain meds/drugs and rest. Back Pain (comments) Angie is here toda y for follow up evaluation and medication refills r elating to her back pain. She has no medication wi today and states she forgot them at home. She has noticed significant benefit from tizanid ine with her lumbar muscle spasms. She will be following up with her spine surgeon to set a daniel e for a cervical fusion and will later consider low back surgery. She is inquiring about incr easing her pain medication to help relieve acute o ral pain from dental work. Her son was in a ne g induced coma from a severe infection but is doi ng better. No other concerns today. Back Pain (comments) Angie is here for f/u and medication refill. She presents with #13 ox ycodone which is a small surplus and #1 Fenta nyl which is appropriate. She reports she is aller gic to the adhesive on certain parts of her body. She requests increasing her opioi d medications as she is not getting adequate rel ief with her current regimen. Notes muscles spasms in the left leg. Patient states she will like ly have cervical and lumbar surgeries in the com ing months. Patient reports falls since her last visit; notes a left foot injury. Pt continues with PT but states it worsens her pain. Sh e c/o insomnia. Patient completed right shou lder imaging at [facility] and reports a tear. She plans to seek Dr. Romero for righ t shoulder. Back Pain Severity level is 10 . Duration: chronic. The problem is worsening . It occurs persistently. Location of pain is upper back, middle back, lower back and neck. Pain is radiated to the right arm, left calf and left thigh.The patient describes the pain a s an ache and sharp. Symptoms are aggravated by da lakisha activities. Symptoms are relieved by pain med s/drugs and rest. Back Pain (comments) Angie is here to y for follow up evaluation and medication refills r elating to her back pain. She has #76 oxycodone an d #6 Fentanyl remaining - on track. She did not r eceive any relief from her SABAS and is unsure wi th she will be undergoing a Cervical Fusion with [facility]. She will be following up with Ortiz kinga next week for further evaluation. She stat es her pain has been worse and has not been wel l controlled lately. Her low back pain radiates i nto her left leg. She does home exercises and s tretches when she can. No other concerns today . Back Pain Severity level is se maricruz. Duration: chronic. The problem is worsening . It occurs persistently. Location of pain is lower back and neck. Pain is radiated to the left thigh.The patient describes the pain as an ache, burning, sharp, stabbing and tingling. Symptoms a re aggravated by prolonged positioning. Symptom s are relieved by heat, pain meds/drugs and rest. Back Pain Severity level is se maricruz. Duration: chronic. The problem is worsening . It occurs persistently. Location of pain is middle back, lower back, gluteal area and nec k. Pain is radiated to the left calf, left foot and left thigh.The patient describes the pain a s an ache, burning, sharp and tingling. Symptoms a re aggravated by daily activities. Symptoms are relieved by pain meds/drugs, rest and changing positions. Back Pain (comments) Angie is here toda y for follow up evaluation and medication refills r elating to her back pain. She has #10 oxycodone re maining - on track. She discontinued butrans 1 week ago because she was not getting any noti ceable relief. She states Fentanyl has been mo re effective. The patient completed an SABAS yes terday and has not noticed any relief yet. [facility] She has noticed increased restlessne ss and pain in her legs. Her PCP is currently man aging her Lyrica and Angie would like to increa se this in the future. No other concerns today . Back Pain Onset: gradual with injury. Severity level is severe. Duration: ch ronic. Location of pain is middle back, lower b ack and neck. Pain is radiated to the left foot and left thigh.The patient describes th e pain as an ache, numbness and stabbing. Sympto ms are aggravated by daily activities. Symptoms are relieved by pain meds/drugs and rest. Back Pain (comments) This patient is re ferred by Dr. Amna Fletcher from [facility]. Angie is here today for her initial consult regarding her back, neck and knee pain which bega n years ago and has been aggrevated from [facility]. She had a lumbar fusion in the past. She also has underwent several neck surgeri es including a cervical fusion and plans to have additional surgery done by Dr. Rodriguez at [facility]. She also has a history of Gastric B ypass knee replacements and shoulder surgery. Sh heaven has noticed more radicular symptoms in her left leg and would like to increase Lyrica in t he future. She is currently not taking a muscle relaxer aside from Valium. She is primarily loo jackie for continued medication management and jose r control of her chronic pain. She has done P T in the past and continue home exercises regul christian. She recently moved back to [place] from [place]. No ot her concerns today. Medical records:Dr. Rodriguez at [facility] - neck surgeon Dr. Amna Amado [place] - PCP recordsPast treatmen t:SABAS - no reliefRFA - no reliefSCS - no relie f PT Past medication:Fentanyl - not covered but go od relief 25mcg/hrPercocet - no reliefButrans - n o reliefLyrica 150 TIDIbuprofen - Gastr ic BypassTopicals - no relief Functional Status Date Functional Assessment No Information Instructions Date Instruction Additional Informati on No Information Assessments Type Assessment Date assessment Pain in left shoulder impression History of bilateral shoulder pain. Inje ctions through [facility] without significant relief. L shoulder r eversal surgery completed 10/27/2020. Additional hardwar e removal surgery through [facility] completed 12/30/21. Another s urgery to replace hardware completed 02/26/22 assessment Anxiety disorder, unspecified impression Anxiety and depression managed by PCP an d psychologist as needed. assessment Chronic migraine without aura, intractab le, without status migrainosus impression History of migraines. Consider Botox inj ections assessment Osteoarthritis impression History of widespread osteoarthritis. Ju assessment Pain in right hip assessment Pain in left hip impression History of bilateral hip pain. Also wors e. No past relief with injections through SOHip pain reduced wi th current pain medication regimen. assessment Pain in left knee impression Chronic bilateral knee pain currently wo rse. Pt planning to follow with ortho regarding this. H/o bi lateral TKA assessment Pain in right knee assessment Other spondylosis, cervical region Apr- impression Neck pain also worse. Hx of cervical fus ion. Degenerative changes noted on 2019 MRI. No relief wit h injections in the past. Failed cervical RF.Neck pain reduc ed with HEP and current pain medication regimen. assessment Other spondylosis, lumbar region 2021 impression Continued back/leg pain exacerbation wit h increased activity. No relief with injections in the past. F trinidad lumbar RF.Lumbar pain reduced with current pain medicatio n regimen and home exercise program. assessment Radiculopathy, lumbar region impression Back pain with radicular sx noted down B LEs has been worse. assessment Pain in thoracic spine impression History of thoracic pain. assessment Postlaminectomy syndrome, not elsewhere classified impression Outside records reviewed. 2018 MRI shows multilevel spondylosis, no fractures or destructive lesions and significant findings as follows: Mild ce ntral stenosis/severe disc degeneration at L2-3 with mild to m oderate left foraminal stenosis. Moderate L3-4 disc degeneratio n with moderate left foraminal stenosis and left posterolater al 3 mm disc protrusion. Solid fusion from L4 to the sacrum without complications. Also history of cervical surgery.S/p SCS explant on 02/13/20. Successful [employer] SCS implant on 07/11. Improvement with reprogramming assessment Fibromyalgia impression History of fibromyalgia. Worse d/t weath er assessment terminologist (current) use of opiate analge sic impression Current treatment plan increases the mary cardozo's daily activity level and quality of life. Encouraged cristel brewer to participate in alternative therapies, conservative m easures, and follow a healthy lifestyle.Patient has been manag ing medications well with no signs of abuse or oversedation, and is appropriate to continue with opioid use. Last UDT resul ts reviewed and appropriate. MNPMP queried and shows oxy codone rx for s/p shoulder surgery pain - ok. At 58 MME. O n medical cannabis. Will consider PACT program in future.Cur rent treatment plan including SCS, home PT exercises and clyde n medication regimen allow patient to perform daily activitie s and enhance her quality of life. Last PT summer 2020. Ta kes 5 mg of Valium at the most/day.The current chronic pain tr eatment plan including assessment of need for physical therapy, pain psychology, pain medications, referrals to other speciali sts, injections, spinal cord stimulation, and medical can nabis has decreased patient's chronic pain level and has enh anced the patient's quality of life. Mental Status Date Cognitive Assessment Orientation - Oriented to ti me, place, person, situation.Normal Orientation Patient Care Teams Name Effective Dates (start - stop) Status M embfavian No Information
--- OUTSIDE RECORDS SUMMARY | 2022-07-06 15:31 | XMS_ITS | Encounter Summary ---
:1965 Author Organization [facility] Address [address] [place] [id number] Care Team Providers Name Role Phone Elsewhere, Pcp Primary Care Provider Unavailable Reason for Visit Reason Comments Scooter prescription Encounter Details Date Type Department Care Team Description 05/19/2022 Clinical Communication Department of Robert Diehl prescription Neurology in [place], [facility] [place], [place] [address] [place] [id number] [place], [place] [phone] (Work) [phone] Social History Tobacco Use Types Packs/Day Years [...] or relatives? How often do you attend oriental orthodox or Patient refused 2021 pentecostalism services? Do you belong to any clubs or No 05/17/2022 organizations such as oriental orthodox groups, unions, fraternal or athletic groups, [...] yesterday and is currently still admitted to [facility] until tomorrow. I encouraged her to [...] Stroke Cerebrovascular Accident Personal History Olivia Pedroza, Bi Technical Lead 05/19/22 11:51 AM CDT documented in this encounter Plan of Treatment Not on filedocumented as of this encounter Visit Diagnoses Not on filedocumented in this encounter Additional Health Concerns Assessment Noted Time PHQ-9 Depression Total Score: 16 02/11/2021 12:00 AM C DT documented as of this encounter Care Teams Transitional Care Manager Relationship Specialty Start Date End Date Elsewhere, Pcp PCP - General Internal Medicine 12/25/21 documented as of this encounter
--- OUTSIDE RECORDS SUMMARY | 2022-07-06 15:31 | XMS_ITS | Encounter Summary ---
:1965 Author Organization [facility] Address [address] [place] [id number] Care Team Providers Name Role Phone Elsewhere, Pcp Primary Care Provider Unavailable Reason for Referral Outpatient (Routine) - Closed Specialty Diagnoses / Procedures Referred By Contact Refer red To Contact Social Work Diagnoses Pain Shoulder Left Preoperative Exam Jenna Zaldivar [place] M.D. [address] [place] [address] [phone] Referral ID Status Reason Start Date Expiration Date Visits Requ ested Visits Authorized [id number] Closed 05/10/2022 05/10/2023 1 1 Reason for Visit Reason Comments Pre-visit Testing Orders Encounter Details Date Type Department Care Team Description 05/07/2022 Clinical Communication Department of [facility], Pre- visit Testing Orthopedic Surgery Cyrus Souza M.D. Orders in [address] [place] [id number] [place], [place] [phone] (Work) [phone] Social History Tobacco Use Types Packs/Day Years [...] you attend mosque or Patient refused 2021 latter-day services? Do you belong to any clubs or No 05/17/2022 organizations such as mosque groups, unions, fraStayTuned or athletic groups, or school groups? How [...] documented as of this encounter Care Teams Special Shopper Relationship Specialty Start Date End Date Elsewhere, Pcp PCP - General Internal Medicine 12/25/21 documented as of this encounter
--- OUTSIDE RECORDS SUMMARY | 2022-07-06 15:31 | XMS_ITS | Encounter Summary ---
:1965 Author Organization [facility] Address [address] [place] [address] Care Team Providers Name Role Phone Elsewhere, Pcp Primary Care Provider Unavailable Encounter Details Date Type Department Care Team Description 05/18/2022 Ancillary Procedure Department of Anesthesiology, [place] Social History Tobacco Use Types Packs/Day Years [...] you attend pentecostal or Patient refused 2021 restorationism services? Do [...] documented as of this encounter Care Teams Mortgage Loan Interviewer Relationship Specialty Start Date End Date Elsewhere, Pcp PCP - General Internal Medicine 12/25/21 documented as of this encounter
--- OUTSIDE RECORDS SUMMARY | 2022-07-06 15:31 | XMS_ITS | Encounter Summary ---
:[address] [facility] Address [address] [place] [address] Care Team Providers Name Role Phone Elsewhere, Pcp Primary Care Provider Unavailable Reason for Visit Reason Comments Pre-visit Intake Encounter Details Date Type Department Care Team Description 05/12/2022 Clinical Communication Department of Cyrus Polk e-visit Intake Orthopedic Surgery Lilian Souza in [address] [place] [phone] [place], [place] [phone] (Work) [phone] Social History Tobacco Use Types Packs/Day Years [...] you attend congregational or Patient refused 2021 judaism services? Do [...] documented as of this encounter Care Teams Floral Associate Relationship Specialty Start Date End Date Elsewhere, Pcp PCP - General Internal Medicine 12/25/21 documented as of this encounter
--- OUTSIDE RECORDS SUMMARY | 2022-07-06 15:31 | XMS_ITS | Encounter Summary ---
:1965 Author Organization [facility] Address [address] [place] [address] Care Team Providers Name Role Phone Elsewhere, Pcp Primary Care Provider Unavailable Encounter Details Date Type Department Care Team Description 05/17/2022 Hospital Encounter Department of Alfredo Herrera Preo perative Exam Laboratory Medicine O.P.A.-C. and Pathology, [place] 200 [facility], in [place], [place] [phone] [place] [address] [place], [place] (Work) [phone] Social History Tobacco Use Types Packs/Day Years [...] you attend anabaptist or Patient refused 2021 bahai services? Do [...] THC multivit-min/iron/folic/ Take 1 tablet by 0 [id number] (HAIR, SKIN AND mouth daily. NAILS ADVANCED [...] Basophils 1 0 - 2 % 05/17/2022 [facility] 1:04 PM CDT Manual Absolute 2.24 1.56 - 05/17/2022 [facility] Neutrophil Count 6.45 1:04 PM [...] Reviewed by: Tech 05/17/2022 1:04 PM CDT [facility] Specimen Anatomical Collection Method Collection Time Receive d Time (Source) Location / / Volume Laterality Blood 05/17/2022 10:50 05/17/2022 AM CDT 11:30 AM CDT Alfredo Kamara LAB BLOOD ADD-ON Performing Organization Address City/State/ZIP Code Phon e Number [facility] - [address] [place] [address] 05 [place] [address] [facility] 200 [facility] Basic Metabolic Panel (05/17/2022 10:50 AM CDT) [...] 05/17/2022 DTL [place]/ mL/min/BSA 12:12 PM CDT Belgian Comment: ----ADDITIONAL INFORMATION---- Estimated GFR calculated using [...] Kamara LAB BLOOD ADD-ON Performing Organization Address City/[facility] Phon e Number [facility] - [address] [place], [place] [address] [facility] [place] [address] [place] [address] [facility] Type and Screen (with reflex Antibody ID) (05/17/2022 10:50 AM CDT) [facility] Method Time Signature ABORh A Neg Not 05/17/2022 ETRM applicable 7:10 PM CDT Antibody Negative Negative 05/17/2022 ETRM Screen 7:22 PM CDT Type & Screen 07/15/2022 05/17/2022 ETRM Expiration 23:59 7:10 PM CDT Testing [place] DEFAULT 05/17/2022 ETRM Location 12:24 PM CDT Specimen Anatomical Collection Method Collection Time Receive d Time (Source) Location / / Volume Laterality Blood (Blood, 05/17/2022 10:50 05/17/2022 Venous) AM CDT 12:24 PM CDT Alfredo Kamara LAB BLOOD BANK TEST ORDERABL ES Performing Organization Address City/[facility] Phon e Number [facility] - [address] [place], [place] [address] [facility] [place] [address] (ABNORMAL) CBC with Differential, Blood (05/17/2022 10:50 AM CDT) [facility] gist Method Time Signature Hemoglobin 9.2 (L) [...] [facility] - 200 [address] [place], [place] [address] [facility] [place] [place] [address] [facility] [address] documented in this encounter Visit Diagnoses Diagnosis Preoperative Exam documented in this encounter Additional Health Concerns Infection Onset Date Last Indicated Resolved Time COVID19 Pending 05/17/2022 05/17/2022 05/17/2022 2:34 PM CDT Assessment Noted Time PHQ-9 Depression Total Score: 16 02/11/2021 12:00 AM C DT documented as of this encounter Care Teams Key Operator Relationship Specialty Start Date End Date Elsewhere, Pcp PCP - General Internal Medicine 12/25/21 documented as of this encounter
--- OUTSIDE RECORDS SUMMARY | 2022-07-06 15:31 | XMS_ITS | Encounter Summary ---
:1965 Author Organization [facility] Address [address] [place] [address] Care Team Providers Name Role Phone Elsewhere, Pcp Primary Care Provider Unavailable Encounter Details Date Type Department Care Team Description 05/11/2022 Clinical Communication Department of Cyrus Polk Orthopedic Surgery in Lilian Souza [place], [place] [address] [place] [address] 200 [place] [phone] Social History Tobacco Use Types Packs/Day Years [...] documented as of this encounter Care Teams Buggy Man Relationship Specialty Start Date End Date Elsewhere, Pcp PCP - General Internal Medicine 12/25/21 documented as of this encounter
--- OUTSIDE RECORDS SUMMARY | 2022-07-06 15:31 | XMS_ITS | Encounter Summary ---
:1965 Author Organization [facility] Address [address] [place] [address] Care Team Providers Name Role Phone Elsewhere, Pcp Primary Care Provider Unavailable Encounter Details Date Type Department Care Team Description 04/21/2022 Clinical Communication Department of Cyrus Polk Orthopedic Surgery in Lilian Souza [place], [place] [address] [place] [address] 200 [place] [phone] [phone] Social History Tobacco Use Types Packs/Day Years [...] you attend hindu or Patient refused 2021 latter day services? [...] something else is going on . Angie [phone] documented in this encounter Plan of Treatment Not on filedocumented as of this encounter Visit Diagnoses Not on filedocumented in this encounter Additional Health Concerns Assessment Noted Time PHQ-9 Depression Total Score: 16 02/11/2021 12:00 AM C DT documented as of this encounter Care Teams Contract Clerk Relationship Specialty Start Date End Date Elsewhere, Pcp PCP - General Internal Medicine 12/25/21 documented as of this encounter
--- OUTSIDE RECORDS SUMMARY | 2022-07-06 15:31 | XMS_ITS | Encounter Summary ---
:1965 Author Organization [facility] Address [address] [place] [address] Care Team Providers Name Role Phone Elsewhere, Pcp Primary Care Provider Unavailable Reason for Referral Outpatient (Routine) - Closed Specialty Diagnoses / Procedures Referred By Contact Refer red To Contact Anesthesiology Diagnoses Anemia [facility] C.N.Hema, M.S.N. [address] [place] [phone] Referral ID Status Reason Start Date Expiration Date Visits Requ ested Visits Authorized [id number] Closed 04/22/2022 04/22/2023 1 1 Encounter Details Date Type Department Care Team Description 04/22/2022 Orders Only Preoperative Evaluation Shauna Rubin (Primary Dx) Center in [facility], [place], [place] M.S.N. [address] [place] [address] [place] [phone] [place], [place] [phone] Social History Tobacco Use Types Packs/Day Years [...] or relatives? How often do you attend cheondoism or Patient refused 2021 shinto services? Do you belong to any clubs or No 05/17/2022 organizations such as cheondoism groups, unions, fraternal or athletic groups, or [...] 05/03/2022 Venous) AM CDT 10:53 AM CDT [facility] - 05/03/2022 11:47 AM CDT Specimen Information: Specimen ID: [id number] Specimen Type: Blood Specimen Collection Start Date: 10:11 AM Specimen Received Date: 05/03/2022 10:53 AM Specimen ID: [id number] Specimen Type: Blood Specimen Collection Start Date: 2 10:11 AM Specimen Received Date: 05/03/2022 10:53 AM Specimen ID: [id number] Specimen Type: Blood Specimen Collection Start Date: 6/6/202 2 10:11 AM Specimen Received Date: 05/03/2022 10:53 AM Specimen ID: [id number] Specimen Type: Blood Specimen Collection Start Date: 2 10:11 AM Specimen Received Date: 05/03/2022 10:32 AM Specimen ID: [id number] Specimen Type: Blood Specimen Collection Start Date: 2 10:11 AM Specimen Received Date: 05/03/2022 11:44 AM Shauna Ruibn APRN CBrittonNCristiana, M.S.N. LAB BLOOD ADD-ON Performing Organization Address City/State/ZIP Code Phon e Number [facility] - [address] [place], [place] [address] [facility] [place] [address] [facility] [address] documented in this encounter Visit Diagnoses Diagnosis Anemia - Primary Anemia documented in this encounter Additional Health Concerns Assessment Noted Time PHQ-9 Depression Total Score: 16 02/11/2021 12:00 AM C DT documented as of this encounter Care Teams Relationship Associate Relationship Specialty Start Date End Date Elsewhere, Pcp PCP - General Internal Medicine 12/25/21 documented as of this encounter
--- OUTSIDE RECORDS SUMMARY | 2022-07-06 15:31 | XMS_ITS | Encounter Summary ---
:1965 Author Organization [facility] Address [address] [place] [address] Care Team Providers Name Role Phone Elsewhere, Pcp Primary Care Provider Unavailable Reason for Visit Outpatient (Routine) - Closed Specialty Diagnoses / Procedures Referred By Contact Refer red To Contact Orthopedic Surgery Diagnoses Pain Shoulder Left Preoperative Exam Alfredo Herrera, [facility]C [address] [place] [address] Referral ID Status Reason Start Date Expiration Date Visits Requ ested Visits Authorized [id number] Closed 04/22/2022 04/22/2023 1 1 Encounter Details Date Type Department Care Team Description 05/17/2022 Office Visit Department of Cyrus Polk, Raul Shou lder Left; Orthopedic Surgery in M.D. Preoperative Exam [place], [place] [address] [facility] [address] [place] [phone] Social History Tobacco Use Types Packs/Day Years [...] you attend islam or Patient refused 2021 restoration services? Do you belong to any clubs or No 05/17/2022 organizations such as islam groups, unions, [employer] or athletic groups, or school groups? How [...] may involve the use of a medical staff services manager made by a iWeebovidya I or one of my partners have collaborated to design, develop, or improve orthopedic implants, instruments, or products. Both the [facility] and the individual surgeons involved receive royalty payments from the use of those specific devices at other institutions, but no royalties or any other payments are paid for the use of those devices with any [facility] patient. The clinical rationale for the use of those devices as well as the availability and applicability of alternative devices was reviewed. He understands that the final decision for the use of a specific medical staff services manager often is made at the time of [...] documented as of this encounter Care Teams Rebeamer Relationship Specialty Start Date End Date Elsewhere, Pcp PCP - General Internal Medicine 12/25/21 documented as of this encounter
--- OUTSIDE RECORDS SUMMARY | 2022-07-06 15:31 | XMS_ITS | Encounter Summary ---
:1965 Author Organization [facility] Address [address] [place] [address] Care Team Providers Name Role Phone Elsewhere, Pcp Primary Care Provider Unavailable Encounter Details Date Type Department Care Team Description 05/03/2022 Hospital Encounter Department of Laboratory Shauna Rubin, Anemia Medicine and Pathology, [facility] M[place]S[facility] [address] [place] [phone] (Wo rk) Social History Tobacco Use Types [...] you attend amish or Patient refused 2021 moravian services? Do [...] THC multivit-min/iron/folic/ Take 1 tablet by 0 [id number] (HAIR, SKIN AND mouth daily. NAILS ADVANCED [...] Venous) AM CDT 10:53 AM CDT Narrative [facility] - 05/03/2022 11:47 AM CDT Specimen Information: Specimen ID: [id number] Specimen Type: Blood Specimen Collection Start Date: 10:11 AM Specimen Received Date: 05/03/2022 10:53 AM Specimen ID: [id number] Specimen Type: Blood Specimen Collection Start Date: 10:11 AM Specimen Received Date: 05/03/2022 10:53 AM Specimen ID: [id number] Specimen Type: Blood Specimen Collection Start Date: 10:11 AM Specimen Received Date: 05/03/2022 10:53 AM Specimen ID: [id number] Specimen Type: Blood Specimen Collection Start Date: 10:11 AM Specimen Received Date: 05/03/2022 10:32 AM Specimen ID: [id number] Specimen Type: Blood Specimen Collection Start Date: 10:11 AM Specimen Received Date: 05/03/2022 11:44 AM Shauna Rubin APRN, C.N.P., M.S.N. LAB BLOOD ADD-ON Performing Organization Address City/State/ZIP Code Phon e Number [facility] - [address] [place], [place] [address] [facility] [place] [address] Laboratories-[facility] [address] documented in this encounter Visit Diagnoses Diagnosis Anemia documented in this encounter Additional Health Concerns Assessment Noted Time PHQ-9 Depression Total Score: 16 02/11/2021 12:00 AM C DT documented as of this encounter Care Teams Anthropology Lecturer Relationship Specialty Start Date End Date Elsewhere, Pcp PCP - General Internal Medicine 12/25/21 documented as of this encounter
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
--- OUTSIDE RECORDS SUMMARY | 2022-07-06 15:31 | XMS_ITS | Encounter Summary ---
:1965 Author Organization [facility] Address 200 [place] [address] Care Team Providers Name Role Phone Elsewhere, Pcp Primary Care Provider Unavailable Reason for Visit Reason Comments Discharge Planning Discharge Planning Encounter Details Date Type Department Care Team Description 05/06/2022 Clinical Communication Department of Kausihk Portillo Di scharge Planning Orthopedic Surgery R.N. (Discharge in [place] [address] [facility] Planning) [place], [place] [address] [place] [phone] [place], [place] [phone] (Work) [phone] Social History Tobacco Use Types Packs/Day Years [...] you attend yarsani or Patient refused 2021 advent services? Do [...] home. The role of the caregiver and uke driver will be filled by the patient's [...] to her history of falling. I encourage Ortho.Residence Manager to contact this patient, prior to surgery, [...] as of this encounter Care Teams Band Singer Relationship Specialty Start Date End Date Elsewhere, Pcp PCP - General Internal Medicine 12/25/21 documented as of this encounter
--- OUTSIDE RECORDS SUMMARY | 2022-07-06 15:31 | XMS_ITS | Encounter Summary ---
:1965 Author Organization [facility] Address [address] [place] [address] Care Team Providers Name Role Phone Elsewhere, Pcp Primary Care Provider Unavailable Reason for Visit Outpatient (Routine) - Closed Specialty Diagnoses / Procedures Referred By Contact Refer red To Contact Anesthesiology Diagnoses Anemia Shauna Rubin APRN, [facility] C.N.P., M.S.N. [address] [place] [phone] Referral ID Status Reason Start Date Expiration Date Visits Requ ested Visits Authorized [id number] Closed 04/22/2022 04/22/2023 1 1 Encounter Details Date Type Department Care Team Description 05/03/2022 Comprehensive Visit Preoperative Evaluation Shauna Gomez, NIKKY, C.N.P., M.S.N. [address] [place] [phone] [facility] [place], Peter Tse R.N. [address] [place] [phone] [place] [address] [place] [phone] Social History Tobacco Use Types Packs/Day [...] you attend caodaism or Patient refused 2021 yazidi services? Do you belong to any clubs or No 05/17/2022 organizations such as caodaism groups, unions, fraternal or athletic groups, or [...] iron in the past when living in [place] (approximately 5-6 years ago). Therapy Plan: With the planned ARTHROPLASTY REPLACEMENT TOTAL SHOULDER on 05/18/2022 the patient would meet criteria based on the Preoperative Anemia Treatment Algorithm and RN Anemia Protocol to receive 1 x 1,000 mgdose of IV iron dextran. Patient agrees with this and would like this administered @ [facility]. I provided the patient with the education pamphlet [id number] Treating Anemia Before Surgery andanswered her questions [...] documented as of this encounter Care Teams Limerock Tower Loader Relationship Specialty Start Date End Date Elsewhere, Pcp PCP - General Internal Medicine 12/25/21 documented as of this encounter
--- OUTSIDE RECORDS SUMMARY | 2022-07-06 15:31 | XMS_ITS | Encounter Summary ---
:1965 Author Organization [facility] Address [address] [place] [address] Care Team Providers Name Role Phone Elsewhere, Pcp Primary Care Provider Unavailable Encounter Details Date Type Department Care Team Description 05/18/2022 Anesthesia Event RST SEBAS MORAN OR Kaushik Carpenter, [address] [facility] [place] [address] [address] [facility] [phone] [place] [phone] (Wo rk) Anesthesia Record Procedure Summary Procedure [...] h andoff to the receiving staff during [facility] we 1. Identified the patient 2. [...] by Placement Time: 1220 Ihsan Patel APRN, COATER OPERATOR Ihsan Townsend APRN, (created via procedure COATER OPERATOR documentation); Mask Ventilation: Easy mask; Type: Standard [...] you attend yarsani or Patient refused 2021 yazidism services? Do [...] Procedure Summary Date: 05/18/22 Room / Location: [place] [address] / [facility] in [place], [place] Anesthesia Start: 1214 Anesthesia Stop: 1415 [...] ETT location: oral VL device: glide scope [place] scope blade size: 3 Adult tube size: [...] diagnosis: Loose left total shoulder arthroplasty. Location: [place] [address] / [facility] in [place], [place] Providers: Cyrus Polk M.D. 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 The use of blood products not discussed [...] procedure ar e in the results section. [place] US GUIDE PLC NDL Routine 05/18/2022 11:24 Resu lts for this AM CDT procedure are i n the results section. [place] INJ ANES BRACHIAL Routine 05/18/2022 11:24 Res [...] ETT location: oral VL device: glide scope [place] scope blade size: 3 Adult tube size: [...] no complications Kaushik Carlos, BBritton ANESTHESIA ORDERABLES [place] INJ ANES BRACHIAL PLEX, [place] US GUIDE PLC NDL, [facility] ANE NERVE [...] documented as of this encounter Care Teams Associate Professor Of Sociology Relationship Specialty Start Date End Date Elsewhere, Pcp PCP - General Internal Medicine 12/25/21 documented as of this encounter
--- OUTSIDE RECORDS SUMMARY | 2022-07-06 15:31 | XMS_ITS | Encounter Summary ---
:1965 Author Organization [facility] Address [address] [place] [address] Care Team Providers Name Role Phone Elsewhere, Pcp Primary Care Provider Unavailable Encounter Details Date Type Department Care Team Description 05/18/2022 Surgery RST SEBAS MORAN OR Cyrus Polk, ARTHROPLASTY REPLACEMENT [address] [facility] [place] [address] 200 [facility] [phone] [place] [address] Social History Tobacco Use Types Packs/Day Years [...] or relatives? How often do you attend rastafarian or Patient refused 2021 anglican services? Do you belong to any clubs or No 05/17/2022 organizations such as rastafarian groups, unions, fraternal or athletic groups, or [...] or the highest technical, or vocational p [place] degree you have received? Sex Assigned at [...] AM CDT DISCHARGE SUMMARY BRIEF OVERVIEW Hospital: [facility] Discharge Provider: Cyrus Polk M.D. Primary [...] R, M.D. RST ROEI OR DISCHARGE DISPOSITION [facility] Care [facility] [6] ACTIVE ISSUES REQUIRING FOLLOW UP This document serves as a prescription to continue physical therapy, medications, and labs or x-raysif ordered/required. If you have any questions or concerns about surgery or upcoming appointments, please do not hesitateto contact Dr. Polk's office at [phone] during regular business hours (8am-5pm M-F). For emergencies on the weekend or after hours, you may contact Dr. Polk's service via the [facility] water purifier operator at [phone]. Details for your 6 week follow-up appointment [...] Cyrus Polk MD Dept of Orthopedics [address], [address] None OUTPATIENT FOLLOW UP For appointment details [...] Cyrus Polk M.D.Jenna Zaldivar M.D.Kaushik Cadena M.D. [facility] SEBAS OR Angie Mosquera was taken [...] mask during therapy session: yes Outcome Measures -[facility] Inpatient Short Form: AM-PAC Basic Mobility (V.2) [...] 6 pm, please page Jam service at [phone] For urgent matters from 6 pm until 6 am, please page Ortho House at [facility] [phone] Jane Nguyen Pharm.D., R.Ph. - 05/19/2022 8:12 [...] at this time. Jane Nguyen, Pharm.D., R.Ph. [phone] Kaushik Cadena M.D. - 05/19/2022 7:34 AM [...] 6 am until 6 pm, please page [facility] service at [phone] For urgent matters from 6 pm until 6 am, please page Ortho House at [facility] [phone] Paco Valentine - 05/18/2022 9:47 AM CDT Encounter: AM Admit Deanna Tradition: No anglican affiliation. Ms. Mosquera did not express any spiritual needs at this time. Plan: Will remain available for spiritual care as needed or requested. [facility]plains [facility] [phone] ([facility]). Rodrigo Preston, Mynor, R.Ph. - 05/18/2022 9:17 [...] Take 150 mg by mouth every morning. thxvrhfkfm-torttuxtklpwo-vcqb (ESGIC) 50-325-40 mg per tablet Past Week [...] 1 spray as needed. 5 mg THC multivit-min/iron/folic/iur494 (HAIR, SKIN AND NAILS ADVANCED ORAL) Past [...] M.D. Medical Diagnosis: Shoulder Joint Disorder Left [R95.945] Reason for Referral: PT Evaluate and Treat [...] (HCC) ??? Nicotine Dependence Unspecified ??? Other Cellophane Tester Current Drug Therapy ??? Direct Infection Of [...] Profile Lives With: Alone Receives Help From: ride attendant, Family, Friend(s) ADL Assistance: Required assistance ADL Assistance Comments: Gets help from CELLOPHANE TESTER for her bath/shower 3x/week, and for her meals IADL/Homemaking Assistance: Required assistance IADL/Homemaking Assistance Comments: Gets help for housecleaning Driving: Does not drive Driving Comments: takes her cane and medical alert with her. Occupational Role: On disability Occupational Role Comments: Previously worked at a [employer] Prior Mobility/Functional Transfers Level of [place]: Needs assistance Previous Transfer/Mobility Assistance Comments: Patient [...] mask during therapy session: yes Outcome Measures [facility] Inpatient Short Form: -[facility] Basic Mobility (V.2) How much help from [...] 3-5 steps with a railing?: A Little -[facility] Basic Mobility (V.2) Raw Score: 18 -[facility] Basic Mobility (V.2) Standardized Score: 41.05 Interpretation: Clinicians answer the [facility] Inpatient Short Form based on observed [...] Nurse Referral Reason: Discharge Planning Primary Language: German Information And Data Architect Analyst Services Used: No Person(s) present during interview: Person(s) Present During Interview: patient History of Present Illness #1 Primary Osteoarthritis Shoulder Left Social History Support System: children, rn case management/rn social services, friends/neighbors and home care staff Patient's Home [...] Calm, Oriented Communication: Talks, Understands speaking, Understands German Shopping: Needs assistance Transportation: Support from family Medication Management: Needs assistance Housekeeping: Needs assistance Meal Prep: Needs assistance Managing Finances: Independent Assistive Devices: Grab bars - wall, Eyeglasses Services/Resources: Other (comment) Agency Name: [facility] Services Provided: CELLOPHANE TESTER services 3x/week, nurse visits every other week Baseline Services/Resources Primary care clinic and provider: [facility] Phone: Fax: Anticipated Needs Functional Status: Transfer to/from bed, chair, etc., Bathing, Dressing, Grooming/hygeine, Housekeeping, Shopping, Meal preparation, Mobility, Medication set-up/administration, Transportation use (drive car, use taxi/bus) Services/Resources: Other (comment) Agency Name: [facility] Services Provided: CELLOPHANE TESTER services 3x/week, nurse visits every other week Transportation Needs: Support from family Does the patient need discharge transport arranged?: No Ride and Caregiver Arranged: Yes Anticipated Discharge Destination: Home-Health Care [facility] ASSESSMENT / PLAN Assessment: The journal entry audit clerk met with Angie Mosquera to discuss her current hospitalization and home goingneeds. The patient was unaccompanied. The patient was a reliable historian. The role of journal entry audit clerk was reviewed. The patient reviewed her prior level of care and support system. The patient receives support from her son, friends and home care staff. Patient reported her son lives in the same apartment as her. She also stated getting CELLOPHANE TESTER services 3x/week and a nurse visits her every other week. The patient described her living environment as a two bedroom apartment. Housekeeping, grocery shopping, meal prep, and other household responsibilities have previously been completed by patient, patient's son and patient's caregiver(s). journal entry audit clerk discussed the patient's potential needs at [facility] based on their home setting, previous needs and responsibilities, homebound status, and relevantassessments with the patient. The patient will be safe and supported to return home with [facility] or previous services noted above when medically ready. Support will be provided by son, friends and home care staff. The patient demonstrated understanding when discussing her home going plans and anticipated needs. At this time, the care team anticipates the patient requires the following service(s) to be reconnected: home healthcare. The patient identified the following as their current vendor(s): [facility]. During this visit patient verbalized she is hoping to increase her CELLOPHANE TESTER hours and also inq uired about getting a scooter to assist in her mobility. Patient went on to share she is unstable attimes due to her stroke history. She thought perhaps her neurology doctor would be able to help her get a scooter. RADHA DONAHUE recommended she follow up with the [facility] in regards to wanting more CELLOPHANE TESTER hours. She was also recommended to follow up with her primary care provider to provide durable medical equipment justification for a scooter, as she is currently hospitalized for orthopedic surgery. Patient verbalized understanding. Patient informed RADHA DONAHUE would be reconnecting her CELLOPHANE TESTER services and nurse visits with [facility]. Patient agreeable to RN CM completing this and even provided RN CM the name and contact of her CELLOPHANE TESTER and RN. After reviewing the patient's chart and meeting with the patient, the journal entry audit clerk deemed the LACE+/readmission questions were not necessary. The patient reports understanding that she will dismiss from the hospital when medically stable. Pending hospital course and medical readiness, no barriers to dismissal have been identified at this time. Plan: Patient to discharge with home health care. [facility] Contact: RADHA Palomino ATTN: Georgette NURSING: [...] directive. PRIMARY SERVICE: - Please provide a non-[place] home health order for resumption of previous [...] dismissal will be provided by family. 3. journal entry audit clerk recommended reaching out to family, friends, and neighbors for assistance. 4. journal entry audit clerk provided information regarding the dismissal process. 5. journal entry audit clerk placed or requested the following hospital-based consult orders and/or referrals:None. 6. journal entry audit clerk will continue to assess for homegoing needs with the interdisciplinary team. 7. journal entry audit clerk encouraged the patient to reach out with [...] falls. Patient will discharge to home with [facility] reconnect. Identify possible barriers to meeting goals/advancing plan of care: none End of Shift Summary: Patient stayed on schedule with prn pain meds (Tramadol and oxycodone) throughout the shift. Encouraged using ice packs to help with pain and swelling. Patient's primapore dressing was changed to Aquacell AG and is clean, dry and intact. Patient has baseline numb/tingling, moderate group worker, skin pink and warm with +2 pulses. Patient expects RN from [facility] to visit on Tuesday, May 24. Patient's friend will transport home. Medications including: oxycodone and tramadol were picked up [facility]. documented in this encounter OR Notes Op Note - Cyrus Polk M.D. - 05/18/2022 5:54 PM CDT STAFF: Cyrus Polk M.D. RESIDENT: Jenna Zaldivar M.D. PRE-OPERATIVE DIAGNOSIS Left dislocated reverse arthroplasty. POST-OPERATIVE DIAGNOSIS Left dislocated reverse arthroplasty. A commercial assistant actively participated and was necessary for [...] glenosphere, placement new humeral stem and tray, [id number] Cyrus Polk M.D. CT CT Job ID: [id number] documented in this encounter Miscellaneous Notes Hospital Course - Kaushik Cadena M.D. - 05/19/2022 12:18 PM CDT Surgery Information This Encounter Past Procedures (05/19/2021 to Today) Date Procedures Providers Location 05/18/2022 ARTHROPLASTY REPLACEMENT TOTAL SHOULDER. Cyrus Polk M.D.Wasserburger, Jory N, M.D.Markos, James R, M.D. [facility] OR Angie Mosquera was taken to the [...] with Differential, Blood (05/20/2022 3:43 AM CDT) [facility] Time Signature Hemoglobin 8.4 (L) 11.6 - [...] Organization Address City/State/ZIP Code Phon e Number [facility] - [address] [place], [place] [address] [facility] [place] [address] Laboratories-[facility] [address] (ABNORMAL) CBC with Differential, Blood (05/19/2022 3:26 AM CDT) [facility] gist Method Time Signature Hemoglobin 7.6 (L) [...] Organization Address City/State/ZIP Code Phon e Number [facility] - [address] [place], [place] [address] [facility] [place] [address] [facility] 200 [facility] (ABNORMAL) Basic Metabolic Panel (05/19/2022 3:26 [...] 05/19/2022 DTL Black/ mL/min/BSA 4:38 AM CDT French Comment: ----ADDITIONAL INFORMATION---- Estimated GFR calculated using [...] Organization Address City/State/ZIP Code Phon e Number [facility] - [address] [place], [place] [address] [facility] [place] [address] Laboratories-[facility] [address] DX Shoulder [...] purposes. Jenna Zaldivar M.D. IM DIAGNOSTIC IMAGING [facility] Surgical Pathology, Frozen Lab (05/18/2022 1:04 PM CDT) Component Value Ref Test Analysis Performed At [facility] Method Time Signature 05/20/2022 METH [...] LAB SURG PATH ORDERABLES Performing Organization Address City/[facility] Phon e Number [facility] - [address] [place], [place] [address] [facility] [place] [place] [address] [facility] [address] [facility] Bacteria Cult, Aerobe / Anaerobe+Susc (05/18/2022 1:03 PM CDT) [facility] Method Time Signature Bacteria Cult, No growth 06/01/2022 DTL Aerobe/Anaerob after 14 6:02 PM CDT e+Susc days of incubation. Specimen Anatomical Collection Method Collection Time Receive d Time (Source) Location / / Volume Laterality Shoulder, Left 05/18/2022 1:03 PM 022 5:21 CDT PM CDT Comment: Specimen Source Site: Tissue #1 Narrative [facility] - 06/01/2022 6:02 PM CDT Bacterial Culture: Placed in Bactec aero bic and Bactec anaerobic bottles Cyrus Polk M.D. LAB MICROBIOLOGY - GENERAL O RDERABLES Performing Organization Address City/[facility]/ZIP Code Phon e Number [facility] - [address] [place], [place] [address] [facility] [place], [place] [address] [place] [address] 200 [facility] Bacteria Cult, Aerobe / Anaerobe+Susc (05/18/2022 1:03 PM CDT) [facility] Method Time Signature Bacteria Cult, No growth 06/01/2022 DTL Aerobe/Anaerob after 14 6:02 PM CDT e+Susc days of incubation. Specimen Anatomical Collection Method Collection Time Receive d Time (Source) Location / / Volume Laterality Shoulder, Left 05/18/2022 1:03 PM 022 5:12 CDT PM CDT Comment: Specimen Source Site: Tissue #3 Narrative [facility] - 06/01/2022 6:02 PM CDT Bacterial Culture: Placed in Bactec aero bic and Bactec anaerobic bottles Cyrus Polk M.D. LAB MICROBIOLOGY - GENERAL O RDERABLES Performing Organization Address City/[facility]/ZIP Code Phon e Number [facility] [address] [place], [place] [address] [place] [address] Bacteria Cult, Aerobe / Anaerobe+Susc (05/18/2022 1:03 PM CDT) [facility] Method Time Signature Bacteria Cult, No growth 06/01/2022 DT Aerobe/Anaerob after 14 6:02 PM CDT e+Susc days of incubation. Specimen Anatomical Collection Method Collection Time Receive d Time (Source) Location / / Volume Laterality Shoulder, Left 05/18/2022 1:03 PM 022 5:07 CDT PM CDT Comment: Specimen Source Site: Tissue #2 Narrative [facility] - 06/01/2022 6:02 PM CDT Bacterial Culture: Placed in Bactec aero bic and Bactec anaerobic bottles Cyrus Polk M.D. LAB MICROBIOLOGY - GENERAL O [facility] Performing Organization Address [facility] Phon e Number [address] [place] [address] documented in this encounter Visit Diagnoses [...] dose., Drug Monitoring Program: Pharmacist to a [facility] medication dosing based on indicat ion and drug clearance factors., Indications: Prophylaxis, surgical ceFAZolin injection 2,000 mg (ANCEF) (COMPLETED) 1240 (Given - Provider: Ihsan Townsend APRN, WATER PURIFIER OPERATOR) 2,000 mg (rounded from 1,652.5 mg = [...] 1240 (Given - Provider: Ihsan Townsend APRN, WATER PURIFIER OPERATOR) 1,000 mg (1 g), intravenous, at 300 [...] 1405 (Continued from OR - Provider: Eve barrienots, R.N.) 20 mL/hr, intravenous, Continuous, Start ing [...] mg of calcium, oral, Every 2 hour AR N, indigestion, Starting on Tue05/18/22 at 1608, [...] over 3 days 1 patch (TRANSDERM S CASE AIDE) (CANCELED) 1118 (Medication Applied - Provider: Cristy [...] Sal Mccloud RBrittonNBritton)1209 (See Alternative - Provider: Isaura Vu R.N.) 0124 (See Alternative - Provider: [...] documented as of this encounter Care Teams Carbide Grinder Relationship Specialty Start Date End Date Elsewhere, Pcp PCP - General Internal Medicine 12/25/21 documented as of this encounter
--- OUTSIDE RECORDS SUMMARY | 2022-07-06 15:31 | XMS_ITS | Encounter Summary ---
:1965 Author Organization [facility] Address [address] [place] [address] Care Team Providers Name Role Phone Elsewhere, Pcp Primary Care Provider Unavailable Reason for Referral Outpatient (Routine) - Closed Specialty Diagnoses / Procedures Referred By Contact Refer red To Contact Orthopedic Surgery Diagnoses Pain Shoulder Left Preoperative Exam [facility] [address] [place] [address] Referral ID Status Reason Start Date Expiration Date Visits Requ ested Visits Authorized [id number] Closed 04/22/2022 04/22/2023 1 1 Reason for Visit Reason Comments pre op orders Encounter Details Date Type Department Care Team Description 04/22/2022 Clinical Communication Department of Cyrus Polk op orders Orthopedic Surgery in [place] Sou[place], [place] [address] [place] [address] [place] [address] [phone] Social History Tobacco Use Types Packs/Day Years [...] you attend episcopalian or Patient refused 2021 rastafarian services? Do you belong to any clubs or No 05/17/2022 organizations such as episcopalian groups, unions, fraGenoLogics or athletic groups, or school groups? How [...] 05/17/2022 DTL Black/ mL/min/BSA 12:12 PM CDT [place] Comment: ----ADDITIONAL INFORMATION---- Estimated GFR calculated using [...] Address City/State/ZIP Code Phon e Number [facility] - [address] [place], [place] [address] [facility] [place] [place] [address] Laboratories-[facility] [address] Type and Screen (with reflex Antibody ID) (05/17/2022 10:50 AM CDT) [facility] Method Time Signature ABORh A Neg Not [...] Address City/State/ZIP Code Phon e Number [facility] - [address] [place], [place] [address] [facility] [place] [address] Laboratories-[facility] [address] [facility] (ABNORMAL) CBC with Differential, Blood (05/17/2022 10:50 AM CDT) [facility] ECKey Method Time Signature Hemoglobin 9.2 (L) 11.6 [...] Address City/State/ZIP Code Phon e Number [facility] - [address] [place], [place] [address] [facility] [place] [address] Laboratories-[facility] 200 [facility] SARS Coronavirus 2, Molecular Detection, PCR, Varies Asymptomatic (05/17/2022 10:26 AM CDT) [facility] Method Time Signature COVID-19, Swab, 05/17/2022 [...] ----ADDITIONAL INFORMATION---- This RT-PCR test using the Rapid Action Packaging SARS-Co V-2 Assay ( Appforma.) performed on the Rapid Action Packaging Two Module System has received Emergency Use Authorization (EUA) by the U.S. Food and Drug Administration, and is modified from the fountain helper's instructions with a bridging study. Performance characteristics were verifie d by [facility] in a manner consistent with CLIA requirements. Visit the CDC website: https://www.cdc.g ov/coronavirus/ for the most recent guidelines on [facility] virus testing. Fact Sheet for Healthcare Providers: https://www.fda.gov/media/693296/downloa d Fact Sheet for Patients: https://www.fda.gov/media/922592/downloa d Specimen Anatomical Collection Method Collection Time Receive d Time (Source) Location / / Volume Laterality Varies 05/17/2022 10:26 05/17/2022 (Nasopharynx) AM CDT 10:52 AM CDT Alfredo Kamara LAB MICROBIOLOGY - GENERAL O MARY Performing Organization Address City/State/ZIP Code Phon e Number [facility] - [address] [place], [place] [address] [facility] [place] [address] Laboratories-[facility] [address] documented in this encounter Visit Diagnoses Diagnosis Pain Shoulder Left - Primary Preoperative Exam documented in this encounter Additional Health Concerns Assessment Noted Time PHQ-9 Depression Total Score: 16 02/11/2021 12:00 AM C DT documented as of this encounter Care Teams Scientific Writer Relationship Specialty Start Date End Date Elsewhere, Pcp PCP - General Internal Medicine 12/25/21 documented as of this encounter
--- OUTSIDE RECORDS SUMMARY | 2022-07-06 15:32 | XMS_ITS | Encounter Summary ---
:1965 Author Organization [facility] Address [address] [place] [address] Care Team Providers Name Role Phone Elsewhere, Pcp Primary Care Provider Unavailable Encounter Details Date Type Department Care Team Description 03/08/2022 Orders Only Department of Orthopedic Melissa Mcdonald M.D. Surgery in [place], [place] [address] [place] [address] Social History Tobacco Use [...] you attend islam or Patient refused 2021 anglican services? Do [...] documented as of this encounter Care Teams Clin Asst Relationship Specialty Start Date End Date Elsewhere, Pcp PCP - General Internal Medicine 12/25/21 documented as of this encounter
--- OUTSIDE RECORDS SUMMARY | 2022-07-06 15:32 | XMS_ITS | Encounter Summary ---
:1965 Author Organization [facility] Address [address] [place] [address] Care Team Providers Name Role Phone Elsewhere, Pcp Primary Care Provider Unavailable Encounter Details Date Type Department Care Team Description 03/16/2022 Clinical Communication Department of Cyrus Polk Orthopedic Surgery in [place] Sou[place], [place] [address] [place] [address] 200 [place] [address] [phone] Social History Tobacco Use Types Packs/Day Years [...] you attend sikhism or Patient refused 2021 zoroastrian services? Do [...] - 03/16/2022 12:15 PM CDT Michael, patient's shelter case manager from [facility], is calling hoping to speak to someone on Dr. Polk's surgical team to ensure that the patient is receiving the correct post-op care. Patient is set up for post op appointments at the beginning of March here. However, Michael is looking to speak to someone over the phone to ensure the patient is on the right track. Please call [phone]. Thank you. documented in this encounter Plan of Treatment Not on filedocumented as of this encounter Visit Diagnoses Not on filedocumented in this encounter Additional Health Concerns Assessment Noted Time PHQ-9 Depression Total Score: 16 02/11/2021 12:00 AM C DT documented as of this encounter Care Teams Gasser Machine Operator Relationship Specialty Start Date End Date Elsewhere, Pcp PCP - General Internal Medicine 12/25/21 documented as of this encounter
--- OUTSIDE RECORDS SUMMARY | 2022-07-06 15:32 | XMS_ITS | Encounter Summary ---
:1965 Author Organization [facility] Address [address] [place] [address] Care Team Providers Name Role Phone Elsewhere, Pcp Primary Care Provider Unavailable Encounter Details Date Type Department Care Team Description 03/03/2022 Orders Only Pharmacy Prior Auth Ana Rosa Ying [phone] Social History Tobacco Use Types Packs/Day Years [...] you attend episcopalian or Patient refused 2021 faith services? Do [...] documented as of this encounter Care Teams Chef Head Relationship Specialty Start Date End Date Elsewhere, Pcp PCP - General Internal Medicine 12/25/21 documented as of this encounter
--- OUTSIDE RECORDS SUMMARY | 2022-07-06 15:32 | XMS_ITS | Encounter Summary ---
:1965 Author Organization [facility] Address [address] [place] [address] Care Team Providers Name Role Phone Elsewhere, Pcp Primary Care Provider Unavailable Encounter Details Date Type Department Care Team Description 03/03/2022 Orders Only Pharmacy Prior Auth Usha Maurer [phone] Social History Tobacco Use Types Packs/Day Years [...] you attend pentecostalism or Patient refused 2021 congregation services? Do [...] documented as of this encounter Care Teams Human Capital Consultant Relationship Specialty Start Date End Date Elsewhere, Pcp PCP - General Internal Medicine 12/25/21 documented as of this encounter
--- OUTSIDE RECORDS SUMMARY | 2022-07-06 15:32 | XMS_ITS | Encounter Summary ---
:1965 Author Organization [facility] Address [address] [place] [address] Care Team Providers Name Role Phone Elsewhere, Pcp Primary Care Provider Unavailable Reason for Visit Reason Comments Medication Question Encounter Details Date Type Department Care Team Description 03/08/2022 Clinical Communication Department of Jose Polk Orthopedic Surgery Cyrus Souza M.D. in [place], [facility] [place], [place] [address] [place] [address] [place], [place] [phone] (Work) [phone] Social History Tobacco Use Types Packs/Day Years [...] you attend restorationism or Patient refused 2021 yazidism services? Do [...] 03/08/2022 11:22 AM CDT Kylie, pharmacist at [facility] in [place] calls. She is wondering if you indeed want to fill it. Please call her back at [phone] Regarding the oxycodone script sent today---patient had [...] documented as of this encounter Care Teams Domestic Violence Counselor Relationship Specialty Start Date End Date Elsewhere, Pcp PCP - General Internal Medicine 12/25/21 documented as of this encounter
--- OUTSIDE RECORDS SUMMARY | 2022-07-06 15:32 | XMS_ITS | Encounter Summary ---
:1965 Author Organization [facility] Address [address] [place] [address] Care Team Providers Name Role Phone Elsewhere, Pcp Primary Care Provider Unavailable Encounter Details Date Type Department Care Team Description 03/02/2022 Orders Only Pharmacy Prior Auth Sarmad Solano [phone] Social History Tobacco Use Types Packs/Day Years [...] or relatives? How often do you attend adventist or Patient refused 2021 yarsani services? Do you belong to any clubs or No 05/17/2022 organizations such as adventist groups, unions, fraternal or athletic groups, or [...] documented as of this encounter Care Teams Shot Polisher And Inspector Relationship Specialty Start Date End Date Elsewhere, Pcp PCP - General Internal Medicine 12/25/21 documented as of this encounter
--- OUTSIDE RECORDS SUMMARY | 2022-07-06 15:32 | XMS_ITS | Encounter Summary ---
:1965 Author Organization [facility] Address [address] [place] [address] Care Team Providers Name Role Phone Elsewhere, Pcp Primary Care Provider Unavailable Encounter Details Date Type Department Care Team Description 03/05/2022 Orders Only Pharmacy Prior Auth RO Elsewhere, Pcp [phone] Social History Tobacco Use Types Packs/Day Years [...] or relatives? How often do you attend episcopal or Patient refused 2021 congregation services? Do you belong to any clubs or No 05/17/2022 organizations such as episcopal groups, unions, fraternal or athletic groups, or [...] documented as of this encounter Care Teams Plastic Shaper Relationship Specialty Start Date End Date Elsewhere, Pcp PCP - General Internal Medicine 12/25/21 documented as of this encounter
--- OUTSIDE RECORDS SUMMARY | 2022-07-06 15:32 | XMS_ITS | Encounter Summary ---
:1965 Author Organization [facility] Address [address] [place] [address] Care Team Providers Name Role Phone Elsewhere, Pcp Primary Care Provider Unavailable Reason for Visit Reason Comments Med Refill Encounter Details Date Type Department Care Team Description 03/02/2022 Refill Division of [facility] Ridge Vega M.D. Med Refill Internal Medicine, [place] [address] [address] [facility] [place] [address] [place] [address] [place] [address] [place] [address] Social History Tobacco Use [...] you attend mormonism or Patient refused 2021 mormonism services? Do [...] documented as of this encounter Care Teams Store Hand Relationship Specialty Start Date End Date Elsewhere, Pcp PCP - General Internal Medicine 12/25/21 documented as of this encounter
--- OUTSIDE RECORDS SUMMARY | 2022-07-06 15:32 | XMS_ITS | Encounter Summary ---
:1965 Author Organization [facility] Address [address] [place] [address] Care Team Providers Name Role Phone Elsewhere, Pcp Primary Care Provider Unavailable Encounter Details Date Type Department Care Team Description 03/12/2022 Orders Only Department of Melissa Mcdonald Arthroplas ty Total Orthopedic Surgery in M.D. Should er Replacement [place], [place] Status Post Left [address] [facility] (Primary Dx) [place] [address] Social History Tobacco Use Types [...] you attend zoroastrianism or Patient refused 2021 sabianism services? Do you belong to any clubs or No 05/17/2022 organizations such as zoroastrianism groups, unions, fraternal or athletic groups, or [...] documented as of this encounter Care Teams Kettle Operator Relationship Specialty Start Date End Date Elsewhere, Pcp PCP - General Internal Medicine 12/25/21 documented as of this encounter
--- OUTSIDE RECORDS SUMMARY | 2022-07-06 15:32 | XMS_ITS | Encounter Summary ---
:1965 Author Organization [facility] Address [address] [place] [address] Care Team Providers Name Role Phone Elsewhere, Pcp Primary Care Provider Unavailable Encounter Details Date Type Department Care Team Description 04/14/2022 Hospital Encounter Department of Alfredo Herrera Total Shoulder Replacement Status Post Left; Laboratory Medicine A, O.P.A.-C. Painful Total Joint Arthroplasty Initial (HCC) and Pathology, [address] [place] [address], in [place] [phone] [place] [phone] [place] [address] (Work) [place], [place] [phone] [address] (Fax) [phone] Social History Tobacco Use Types Packs/Day Years [...] you attend holiness or Patient refused 2021 sabianist services? Do [...] THC multivit-min/iron/folic/ Take 1 tablet by 0 [id number] (HAIR, SKIN AND mouth daily. NAILS ADVANCED [...] CDT Arthroplasty Initial proc edure are in ([facility]) the results section. C-REACTIVE PROTEIN Routine 04/14/2022 10:42 Painful Total Join t Results for this (CRP), S/P AM CDT Arthroplasty Initial procedu re are in ([facility]) the results section. documented in this encounter [...] City/State/ZIP Code Phon e Number [facility] - [address] [place], [place] [address] [facility] [place] [address] [facility] [address] (ABNORMAL) CBC without Differential (04/14/2022 10:42 AM CDT) [facility] gist Method Time Signature Hemoglobin 8.6 (L) [...] Kamara LAB BLOOD ADD-ON Performing Organization Address City/[facility] Phon e Number [facility] - [address] [place], [place] [address] [facility] [place] [address] [facility] [address] [facility] documented in this encounter Visit Diagnoses Diagnosis Arthroplasty Total Shoulder Replacement Status Post Left Painful Total Joint Arthroplasty Initial (HCC) documented in this encounter Additional Health Concerns Assessment Noted Time PHQ-9 Depression Total Score: 16 02/11/2021 12:00 AM C DT documented as of this encounter Care Teams Innovation Manager Relationship Specialty Start Date End Date Elsewhere, Pcp PCP - General Internal Medicine 12/25/21 documented as of this encounter
--- OUTSIDE RECORDS SUMMARY | 2022-07-06 15:32 | XMS_ITS | Encounter Summary ---
:1965 Author Organization [facility] Address [address] [place] [address] Care Team Providers Name Role Phone Elsewhere, Pcp Primary Care Provider Unavailable Reason for Visit Reason Comments Medication Problem Encounter Details Date Type Department Care Team Description 03/01/2022 Clinical Communication Department of Jose Polk Orthopedic Surgery Cyrus Souza M.D. in [place], [facility] [place], [place] [address] [place] [address] [place], [place] [phone] (Work) [phone] Social History Tobacco Use Types Packs/Day Years [...] you attend religion or Patient refused 2021 buddhist services? Do [...] 12:04 PM CDT PIPER. Received fax from [employer] 03-03-22 indicating the doxycycline [facility] [address] 100 mg tab is approved through 11/27/2022. Telephone Encounter - Cyrus Polk M.D. - 03/02/2022 7:45 AM CDT Please see below Thank you Telephone Encounter - Radha Suh - 03/01/2022 3:36 PM CDT Regina, pharmacist working for the insurance company calls regarding the doxycycline hyclate (DORYX) 100 mg EC tablet [[id number]] Script. This is not in their formulary. She has several questions to ask to consider approving this. Please call Regina back [phone], ext [phone] Reference # [id number] documented in this encounter Plan of Treatment Not on filedocumented as of this encounter Visit Diagnoses Not on filedocumented in this encounter Additional Health Concerns Assessment Noted Time PHQ-9 Depression Total Score: 16 02/11/2021 12:00 AM C DT documented as of this encounter Care Teams Limited Radiology Technician Relationship Specialty Start Date End Date Elsewhere, Pcp PCP - General Internal Medicine 12/25/21 documented as of this encounter
--- OUTSIDE RECORDS SUMMARY | 2022-07-06 15:32 | XMS_ITS | Encounter Summary ---
:1965 Author Organization [facility] Address [address] [place] [address] Care Team Providers Name Role Phone Elsewhere, Pcp Primary Care Provider Unavailable Reason for Visit Reason Comments Communication Encounter Details Date Type Department Care Team Description 03/11/2022 Clinical Communication Department of Cyrus Polk mmunication Orthopedic Surgery in Lilian Souza [place], [place] [address] [place] [address] 200 [place] [address] [phone] Social History Tobacco Use Types Packs/Day Years [...] or relatives? How often do you attend scientologist or Patient refused 2021 methodist services? Do you belong to any clubs or No 05/17/2022 organizations such as scientologist groups, unions, fraternal or athletic groups, or [...] and cannot afford any to drive to [place] and tile picker [place]. Telephone Encounter - Radha [...] documented as of this encounter Care Teams Production Engineer Relationship Specialty Start Date End Date Elsewhere, Pcp PCP - General Internal Medicine 12/25/21 documented as of this encounter
--- OUTSIDE RECORDS SUMMARY | 2022-07-06 15:32 | XMS_ITS | Encounter Summary ---
:1965 Author Organization [facility] Address [address] [place] [address] Care Team Providers Name Role Phone Elsewhere, Pcp Primary Care Provider Unavailable Encounter Details Date Type Department Care Team Description 03/03/2022 Orders Only Pharmacy Prior Auth Yady Lebron [phone] Social History Tobacco Use Types Packs/Day Years [...] you attend judaism or Patient refused 2021 sabianist services? Do [...] documented as of this encounter Care Teams Multicut Line Operator Relationship Specialty Start Date End Date Elsewhere, Pcp PCP - General Internal Medicine 12/25/21 documented as of this encounter
--- OUTSIDE RECORDS SUMMARY | 2022-07-06 15:32 | XMS_ITS | Encounter Summary ---
:1965 Author Organization [facility] Address [address] [place] [address] Care Team Providers Name Role Phone Elsewhere, Pcp Primary Care Provider Unavailable Reason for Visit Outpatient (Routine) - Closed Specialty Diagnoses / Procedures Referred By Contact Refer red To Contact Diagnoses Painful Total Joint Arthroplasty Initial ([facility]) Alfredo Herrera [place] Procedures ORS US-Guided aspiration/injection O.P.A.-C. [address] [place] [phone] Referral ID Status Reason Start Date Expiration Date Visits Requ ested Visits Authorized [id number] Closed 04/02/2022 04/02/2023 1 1 Encounter Details Date Type Department Care Team Description 04/14/2022 Procedure visit Department of Jey Monzon To beto Joint Orthopedic Surgery in [place] Arthroplasty Initial [place], [place] [address] [place] [address] ([facility]) [address] [place] [phone] Social History Tobacco Use Types Packs/Day Years [...] you attend jew or Patient refused 2021 taoist services? Do you belong to any clubs or No 05/17/2022 organizations such as jew groups, unions, fraSpot On Sciences or athletic groups, or school groups? How [...] was performed by Carmelo Guo M.D., M.S. ([phone]). HISTORY: The patient was recently evaluated for [...] and sterile ultrasound gel were used. Machine: Stackify Transducer: 6-15 MHz linear transducer. Patient position: [...] Mosquera Barriers to learning: None Preferred language: Urdu Learning preferences include: Seeing and doing. Discussed: [...] preparation: chlorhexidine/alcohol Images have been archived in [facility]: click the 'Dept Filter' button in [facility], then the 'Clear (ShowAll)' button, then OK. [...] procedure a re in the results section. FL ARTHCS ASP/INJ Routine 04/14/2022 9:30 AM Painful Total Aliza nt Results for this MJR JT W US CDT Arthroplasty Initial procedu re are in (HCC) the results section. documented in this encounter Results Bacteria Cult, Aerobe / Anaerobe+Susc (04/14/2022 9:35 AM CDT) Qitio Method Time Signature Bacteria Cult, No growth 04/28/2022 DTL Aerobe/Anaerob after 14 11:02 AM CDT e+Susc days of incubation. Specimen Anatomical Collection Method Collection Time Receive d Time (Source) Location / / Volume Laterality Synovial Fluid, 04/14/2022 9:35 AM 2021 Left Shoulder CDT 10:18 AM CDT Comment: Specimen Source Site: Aspirate Narrative [facility] - 04/28/2022 11:02 AM CDT Bacterial Culture: Received Bactec aerob ic and Bactec anaerobic bottles Alfredo Kamara LAB MICROBIOLOGY - GENERAL O RDERABLES Performing Organization Address City/State/ZIP Code Phon e Number [facility] - [address] [place] [address] [facility] [place] [address] [facility] 200 [facility] Cell Count and Differential, Body Fluid (04/14/2022 9:35 AM CDT) Qitio Method Time Signature Fluid Type Right 04/14/2022 [...] Its performance characteri stics were determined by [facility] in a manner co nsistent with [...] City/State/ZIP Code Phon e Number [facility] - [address] [place], [place] [address] [place] [address] [facility] [address] [place] ARTHCS ASP/INJ MJR JT W US (04/14/2022 [...] documented as of this encounter Care Teams Biomedical Technician Relationship Specialty Start Date End Date Elsewhere, Pcp PCP - General Internal Medicine 12/25/21 documented as of this encounter
--- OUTSIDE RECORDS SUMMARY | 2022-07-06 15:32 | XMS_ITS | Encounter Summary ---
:1965 Author Organization [facility] Address [address] [place] [address] Care Team Providers Name Role Phone Elsewhere, Pcp Primary Care Provider Unavailable Encounter Details Date Type Department Care Team Description 03/19/2022 Clinical Communication Department of Cyrus Polk Orthopedic Surgery in [place], [place] [address] [place] [address] 200 [place] [address] [phone] Social History Tobacco Use Types Packs/Day Years [...] you attend muslim or Patient refused 2021 roman catholic services? [...] discussed this situation with the O.R. supervisor paper machine, the A.M. admission Office Manager Executive Assistant, and the Outpatient Office Manager Executive Assistant and no one can locate this remote [...] Please return a call to her at [phone] documented in this encounter Plan of Treatment Not on filedocumented as of this encounter Visit Diagnoses Not on filedocumented in this encounter Additional Health Concerns Assessment Noted Time PHQ-9 Depression Total Score: 16 02/11/2021 12:00 AM C DT documented as of this encounter Care Teams Manager Video Relationship Specialty Start Date End Date Elsewhere, Pcp PCP - General Internal Medicine 12/25/21 documented as of this encounter
--- OUTSIDE RECORDS SUMMARY | 2022-07-06 15:32 | XMS_ITS | Encounter Summary ---
:1965 Author Organization [facility] Address [address] [place] [address] Care Team Providers Name Role Phone Elsewhere, Pcp Primary Care Provider Unavailable Encounter Details Date Type Department Care Team Description 03/02/2022 Orders Only Pharmacy Prior Auth Ana Rosa Ying [phone] Social History Tobacco Use Types Packs/Day Years [...] you attend presybeterian or Patient refused 2021 restorationism services? Do [...] documented as of this encounter Care Teams Housekeeper Cleaning Cooking Relationship Specialty Start Date End Date Elsewhere, Pcp PCP - General Internal Medicine 12/25/21 documented as of this encounter
--- OUTSIDE RECORDS SUMMARY | 2022-07-06 15:32 | XMS_ITS | Encounter Summary ---
:1965 Author Organization [facility] Address [address] [place] [address] Care Team Providers Name Role Phone Elsewhere, Pcp Primary Care Provider Unavailable Encounter Details Date Type Department Care Team Description 03/08/2022 Documentation Department of Orthopedic Melissa Mcdonald M.D. Surgery in [place], [place] [address] [place] [address] Social History Tobacco Use [...] you attend amish or Patient refused 2021 alevism services? Do [...] documented as of this encounter Care Teams Insurance Billing Clerk Relationship Specialty Start Date End Date Elsewhere, Pcp PCP - General Internal Medicine 12/25/21 documented as of this encounter
--- OUTSIDE RECORDS SUMMARY | 2022-07-06 15:32 | XMS_ITS | Encounter Summary ---
:1965 Author Organization [facility] Address [address] [place] [address] Care Team Providers Name Role Phone Elsewhere, Pcp Primary Care Provider Unavailable Encounter Details Date Type Department Care Team Description 03/02/2022 Orders Only Pharmacy Prior Auth Brooklyn Frias [phone] Social History Tobacco Use Types Packs/Day Years [...] you attend gnosticist or Patient refused 2021 jain services? Do [...] documented as of this encounter Care Teams Ophthalmic Assistant Relationship Specialty Start Date End Date Elsewhere, Pcp PCP - General Internal Medicine 12/25/21 documented as of this encounter
--- OUTSIDE RECORDS SUMMARY | 2022-07-06 15:32 | XMS_ITS | Encounter Summary ---
:1965 Author Organization [facility] Address [address] [place] [address] Care Team Providers Name Role Phone Elsewhere, Pcp Primary Care Provider Unavailable Encounter Details Date Type Department Care Team Description 03/08/2022 Orders Only Department of Orthopedic Melissa Mcdonald M.D. Surgery in [place], [place] [address] [place] [address] Social History Tobacco Use [...] you attend anglican or Patient refused 2021 hinduism services? Do you belong to any clubs or No 05/17/2022 organizations such as anglican groups, unions, fraternal or athletic groups, or [...] as of this encounter Care Teams Assembler Fluorescent Lights Relationship Specialty Start Date End Date Elsewhere, Pcp PCP - General Internal Medicine 12/25/21 documented as of this encounter
--- OUTSIDE RECORDS SUMMARY | 2022-07-06 15:32 | XMS_ITS | Encounter Summary ---
:1965 Author Organization [facility] Address [address] [place] [address] Care Team Providers Name Role Phone Elsewhere, Pcp Primary Care Provider Unavailable Reason for Referral Outpatient (Routine) - Closed Specialty Diagnoses / Procedures Referred By Contact Refer red To Contact Diagnoses Arthroplasty Total Shoulder Replacement Status Post Left Alfredo Herrera O.P.A.-C. [facility] Procedures DX Shoulder Left Ingrowth Series 5 Views [address] [place] [phone] Referral ID Status Reason Start Date Expiration Date Visits Requ ested Visits Authorized [id number] Closed 02/25/2022 02/25/2023 1 1 Reason for Visit Outpatient (Routine) - Closed Specialty Diagnoses / Procedures Referred By Contact Refer red To Contact Diagnoses Arthroplasty Total Shoulder Replacement Status Post Left Alfredo Herrera O.P.A.-C. [facility] Procedures DX Shoulder Left Ingrowth Series 5 Views [address] [place] [phone] Referral ID Status Reason Start Date Expiration Date Visits Requ ested Visits Authorized [id number] Closed 02/25/2022 02/25/2023 1 1 Encounter Details Date Type Department Care Team Description 04/02/2022 Hospital Encounter Department of Alfredo Herrera Total Radiology, Anh Gonzales Shoulder Replacement [facility], in [address] [place] [address] Status Post Left [facility] [address] [place], [place] (Work) [address] [phone] Social History Tobacco Use Types Packs/Day Years [...] you attend nondenominational or Patient refused 2021 church services? Do [...] THC multivit-min/iron/folic/ Take 1 tablet by 0 [id number] (HAIR, SKIN AND mouth daily. NAILS ADVANCED [...] documented as of this encounter Care Teams Utility Maintenance Worker Relationship Specialty Start Date End Date Elsewhere, Pcp PCP - General Internal Medicine 12/25/21 documented as of this encounter
--- OUTSIDE RECORDS SUMMARY | 2022-07-06 15:32 | XMS_ITS | Encounter Summary ---
:1965 Author Organization [facility] Address [address] [place] [address] Care Team Providers Name Role Phone Elsewhere, Pcp Primary Care Provider Unavailable Encounter Details Date Type Department Care Team Description 03/05/2022 Clinical Communication Pharmacy Prior Auth Ben Chino RO M.D. [phone] Social History Tobacco Use Types Packs/Day Years [...] you attend jew or Patient refused 2021 orthodoxy services? Do [...] documented as of this encounter Care Teams Bone Char Operator Relationship Specialty Start Date End Date Elsewhere, Pcp PCP - General Internal Medicine 12/25/21 documented as of this encounter
--- OUTSIDE RECORDS SUMMARY | 2022-07-06 15:32 | XMS_ITS | Encounter Summary ---
:1965 Author Organization [facility] Address [address] [place] [address] Care Team Providers Name Role Phone Elsewhere, Pcp Primary Care Provider Unavailable Reason for Referral Outpatient (Routine) - Closed Specialty Diagnoses / Procedures Referred By Contact Refer red To Contact Diagnoses Painful Total Joint Arthroplasty Initial (HCC) Alfredo Herrera [place] [facility] Procedures ORS US-Guided aspiration/injection O.P.A.-C. 200 [place] [address] Referral ID Status Reason Start Date Expiration Date Visits Requ ested Visits Authorized [id number] Closed 04/02/2022 04/02/2023 1 1 MRI/CAT/PET Scan (Routine) - Closed Specialty Diagnoses / Procedures Referred By Contact Refer red To Contact Radiology Diagnoses Painful Total Joint Arthro[facility] Alfredo Herrera [facility] [facility] Procedures CT Shoulder Left without IV Contrast O.P.A.-C. 200 [place] [address] Referral ID Status Reason Start Date Expiration Date Visits Requ ested Visits Authorized [id number] Closed 04/02/2022 04/02/2023 1 1 Reason for Visit Outpatient (Routine) - Closed Specialty Diagnoses / Procedures Referred By Contact Refer red To Contact Orthopedic Surgery Diagnoses Arthroplasty Total Shoulder Replacement Status Post Left Alfredo Herrera [place] [facility] O.P.ABritton-C. [address] [place] [address] Referral ID Status Reason Start Date Expiration Date Visits Requ ested Visits Authorized [id number] Closed 02/25/2022 02/25/2023 1 1 Encounter Details Date Type Department Care Team Description 04/02/2022 Office Visit Department of Cyrus Polk Arthroplasty Total Shoulder Replacement Status Post Left; Orthopedic Surgery in [place] Souza Painful Total Joint Arthroplasty Initial (HCC) [place], [place] [address] [facility] [address] [place] [phone] Social History Tobacco Use Types Packs/Day Years [...] as of this encounter Progress Notes Cyrus Pokl M.D. - 04/02/2022 9:45 AM CDT SUBJECTIVE [...] Cyrus Polk M.D. CT CT Job ID: [id number] documented in this encounter Plan of Treatment [...] Organization Address City/State/ZIP Code Phon e Number [facility] - [address] [place] [phone] [facility] [place] [address] [facility] 200 [facility] (ABNORMAL) CBC without Differential (04/14/2022 10:42 AM CDT) [facility] Method Time Signature Hemoglobin 8.6 (L) [...] Organization Address City/State/ZIP Code Phon e Number [facility] - [address] [place], [place] [address] [facility] [place] [address] [facility] [address] [place] ARTHCS ASP/INJ MJR JT W US (04/14/2022 [...] documented as of this encounter Care Teams Labor Arbitrator Hearing Office Relationship Specialty Start Date End Date Elsewhere, Pcp PCP - General Internal Medicine 12/25/21 documented as of this encounter
--- OUTSIDE RECORDS SUMMARY | 2022-07-06 15:32 | XMS_ITS | Encounter Summary ---
:1965 Author Organization [facility] Address [address] [place] [address] Care Team Providers Name Role Phone Elsewhere, Pcp Primary Care Provider Unavailable Reason for Referral MRI/CAT/PET Scan (Routine) - Closed Specialty Diagnoses / Procedures Referred By Contact Refer red To Contact Radiology Diagnoses Painful Total Joint Arthroplasty Initial ([facility]) Alfredo Herrera [facility] [facility] Procedures CT Shoulder Left without IV Contrast O.P.A.-C. [address] [place] [phone] Referral ID Status Reason Start Date Expiration Date Visits Requ ested Visits Authorized [id number] Closed 04/02/2022 04/02/2023 1 1 Reason for Visit MRI/CAT/PET Scan (Routine) - Closed Specialty Diagnoses / Procedures Referred By Contact Refer red To Contact Radiology Diagnoses Painful Total Joint Arthroplasty Initial ([facility]) Alfredo Her[facility] Procedures CT Shoulder Left without IV Contrast O.P.A.-C. [address] [place] [phone] Referral ID Status Reason Start Date Expiration Date Visits Requ ested Visits Authorized [id number] Closed 04/02/2022 04/02/2023 1 1 Encounter Details Date Type Department Care Team Description 04/14/2022 Hospital Encounter Department of Alfredo Herrera Painful Total Joint Radiology in A, O.P.A.-CBritton Arthroplasty Initial [place], [address] [place] [address] ([facility]) [place], [place] [address] [place], [place] [phone] [place], [place] [phone] (Work) [phone] Social History Tobacco Use Types Packs/Day Years [...] you attend baptist or Patient refused 2021 zoroastrianism services? Do [...] THC multivit-min/iron/folic/ Take 1 tablet by 0 vls512 (HAIR, SKIN AND mouth daily. NAILS ADVANCED [...] represent an infectious or inflammatory process. Postoperative delr io ges of the stomach. Remainder normal. Procedure [...] documented as of this encounter Care Teams Pharmaceutical Detailer Relationship Specialty Start Date End Date Elsewhere, Pcp PCP - General Internal Medicine 12/25/21 documented as of this encounter
--- OUTSIDE RECORDS SUMMARY | 2022-07-06 15:32 | XMS_ITS | Encounter Summary ---
:1965 Author Organization [facility] Address [address] [place] [address] Care Team Providers Name Role Phone Elsewhere, Pcp Primary Care Provider Unavailable Reason for Visit Reason Comments pre op orders Encounter Details Date Type Department Care Team Description 04/02/2022 Clinical Communication Department of Cyrus Polk op orders Orthopedic Surgery in Lilian Souza [place], [place] [address] [place] [address] 200 [place] [phone] Social History Tobacco Use Types Packs/Day Years [...] you attend gnosticist or Patient refused 2021 buddhist services? Do [...] as of this encounter Care Teams Software Sales Consultant Relationship Specialty Start Date End Date Elsewhere, Pcp PCP - General Internal Medicine 12/25/21 documented as of this encounter
--- OUTSIDE RECORDS SUMMARY | 2022-07-06 15:32 | XMS_ITS | Encounter Summary ---
:1965 Author Organization [facility] Address [address] [place] [address] Care Team Providers Name Role Phone Elsewhere, Pcp Primary Care Provider Unavailable Encounter Details Date Type Department Care Team Description 03/11/2022 Documentation Department of Orthopedic Melissa Mcdonald M.D. Surgery in [place], [place] [address] [place] [address] Social History Tobacco Use [...] you attend restorationism or Patient refused 2021 yarsanism services? Do [...] Mr. Mosquera if he could come to [place] to peanut picker a new sling tomorrow and he [...] documented as of this encounter Care Teams Field Superintendent Relationship Specialty Start Date End Date Elsewhere, Pcp PCP - General Internal Medicine 12/25/21 documented as of this encounter
--- OUTSIDE RECORDS SUMMARY | 2022-07-06 15:33 | XMS_ITS | Encounter Summary ---
:1965 Author Organization [facility] Address [address] [place] [address] Care Team Providers Name Role Phone Elsewhere, Pcp Primary Care Provider Unavailable Reason for Visit Outpatient (Routine) - Closed Specialty Diagnoses / Procedures Referred By Contact Refer red To Contact Infectious Diseases Diagnoses Aftercare [facility] [address] [place] [phone] Referral ID Status Reason Start Date Expiration Date Visits Requ ested Visits Authorized [id number] Closed 01/01/2022 01/01/2023 1 1 Encounter Details Date Type Department Care Team Description 02/25/2022 Comprehensive Visit Section of Christiano Nixon M.D. [address] [place] [phone] [facility] Antibiotic Treatment (Primary Dx); Infectious Diseases Russell Santos M.D. [address] [place] [phone] Infection Shoulder Prosthesis Subsequent ; in [place], Direct Infecti on Of Left Shoulder In Infectious And Parasitic Diseases Classified Elsewhere ([facility]); [place] Aftercare Total Shoulder Art hroplasty [address] [place] [phone] Social History Tobacco Use Types Packs/Day [...] or relatives? How often do you attend gnosticism or Patient refused 2021 sikhism services? Do you belong to any clubs or No 05/17/2022 organizations such as gnosticism groups, unions, fraternal or athletic groups, or [...] 56 y.o. Birthdate: 1965 Sex: female Address: [address] [place] [phone] Referring Provider: Jose Guadalupe Nixon M.D. REASON [...] resistance on OSH AST. She presented to [facility] (unclear if on antibiotics) for further evaluation given persistent L shoulder pain 08/2021 prompting aspiration (09/25/21) which revealed elevated TNC (25820) with 81% PMNs with cultures positive for [...] thorough debridement.??The patient was subsequently admitted to [facility] for further management. Intraoperative cultures and synovial [...] is consistent with aspiration results from original [facility] evaluation which is likely security systems sales representative of the culprit organism causing [...] of Infectious Diseases OPAT monitoring program at [phone] after dismissal. Primary service to follow labs while patient is hospitalized. [facility] pharmacist to adjust dosing after dismissal 4. [...] 150 mg by mouth every morning. ??? jgfaabmuly-yizkqjdsxiytn-vusz (ESGIC) 50-325-40 mg per tablet Take 1 [...] 11 mo ago Resulting Agency CULTURE RESULT??Abnormal?? [facility] CULTURE 1+ Staphylococcus coagulase negative [facility] GRAM STAIN ? 1+ PMNs [facility] GRAM STAIN ? No organisms seen [facility] GRAM STAIN ? 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 Hepatic Function Panel ??? Basic Metabolic Panel Spent 36 minutes in total time both bbdw-je-wwef and non imxw-kg-bdyh to face documented in this encounter Plan [...] 02/25/2022 DTL Black/ mL/min/BSA 11:19 AM CDT Swazi Comment: ----ADDITIONAL INFORMATION---- Estimated GFR calculated using [...] Organization Address City/State/ZIP Code Phon e Number [facility] - [address] [place] [phone] [facility] [place] [address] [facility] 200 [facility] Hepatic Function Panel (02/25/2022 10:09 AM CDT) [facility] gist Method Time Signature Bilirubin, Total, S [...] Organization Address City/State/ZIP Code Phon e Number [facility] - [address] [place], [place] [address] [facility] [place] [address] [facility] [address] documented in this encounter Visit Diagnoses Diagnosis Revenue Integrity Analyst Antibiotic Treatment - Primary Infection Shoulder Prosthesis Subsequent Direct Infection Of Left Shoulder In Inf ectious And Parasitic Diseases Classified Elsewhere (HCC) Aftercare Total Shoulder Arthroplasty documented in this encounter Additional Health Concerns Assessment Noted Time PHQ-9 Depression Total Score: 16 02/11/2021 12:00 AM C DT documented as of this encounter Care Teams Truck Car And Bus Cleaner Relationship Specialty Start Date End Date Elsewhere, Pcp PCP - General Internal Medicine 12/25/21 documented as of this encounter
--- OUTSIDE RECORDS SUMMARY | 2022-07-06 15:33 | XMS_ITS | Encounter Summary ---
:1965 Author Organization [facility] Address [address] [place] [address] Care Team Providers Name Role Phone Elsewhere, Pcp Primary Care Provider Unavailable Reason for Visit Reason Comments OPAT Normal labs Encounter Details Date Type Department Care Team Description 02/09/2022 Clinical Communication Section of Ruth Eddy (Normal labs) Infectious T, R.N. Diseases in [address] [place] [phone] [place] [address] [place], [place] (Work) [phone] Social History Tobacco Use Types Packs/Day Years [...] you attend hoahaoism or Patient refused 2021 congregation services? Do [...] Provider: Dennis TA [facility], phone: [phone], fax: [phone] Labs and site care at [facility], phone: [phone] Antimicrobial(s) currently prescribed: See Med List Hyperlink [...] documented as of this encounter Care Teams Hearing Aid Mechanic Relationship Specialty Start Date End Date Elsewhere, Pcp PCP - General Internal Medicine 12/25/21 documented as of this encounter
--- OUTSIDE RECORDS SUMMARY | 2022-07-06 15:33 | XMS_ITS | Encounter Summary ---
:1965 Author Organization [facility] Address [address] [place] [address] Care Team Providers Name Role Phone Elsewhere, Pcp Primary Care Provider Unavailable Reason for Referral Outpatient (Routine) - Closed Specialty Diagnoses / Procedures Referred By Contact Refer red To Contact Diagnoses Arthroplasty Total Shoulder Replacement Status Post Left Alfredo Herrera O.P.A.-C. [facility] Procedures DX Shoulder Left Ingrowth Series [address] Views [address] [place] [phone] Referral ID Status Reason Start Date Expiration Date Visits Requ ested Visits Authorized [id number] Closed 02/25/2022 02/25/2023 1 1 Outpatient (Routine) - Closed Specialty Diagnoses / Procedures Referred By Contact Refer red To Contact Orthopedic Surgery Diagnoses Arthroplasty Total Shoulder Replacement Status Post Left Alfredo Herrera, [facility] Anh [address] [place] [phone] Referral ID Status Reason Start Date Expiration Date Visits Requ ested Visits Authorized [id number] Closed 02/25/2022 02/25/2023 1 1 Scheduling Instructions 6 wk f/u L TSA Reason for Visit Reason Comments Pre-visit Testing Orders Encounter Details Date Type Department Care Team Description 02/25/2022 Clinical Communication Department of Jam Pre- visit Testing Orthopedic Surgery Cyrus Souza M.D. Orders in [place], [address] [place], [place] [address] [facility] [phone] [place], [place] [phone] (Work) [phone] Social History Tobacco Use Types Packs/Day Years [...] you attend moravian or Patient refused 2021 scientologist services? Do you belong to any clubs [...] Name Type Priority Associated Diagnoses Order S [facility] Orthopedic Surgery Outpatient Referral Routine Arthroplasty To [...] documented as of this encounter Care Teams Technical Document Writer Relationship Specialty Start Date End Date Elsewhere, Pcp PCP - General Internal Medicine 12/25/21 documented as of this encounter
--- OUTSIDE RECORDS SUMMARY | 2022-07-06 15:33 | XMS_ITS | Encounter Summary ---
:1965 Author Organization [facility] Address [address] [place] [address] Care Team Providers Name Role Phone Elsewhere, Pcp Primary Care Provider Unavailable Reason for Visit Reason Comments OPAT Monitoring Complete Encounter Details Date Type Department Care Team Description 02/12/2022 Clinical Communication Section of Kylie Siddiqui (Monitoring Infectious Diseases M, R.N. Complete) in [facility] [phone] [place] (Work) [address] [place] [phone] Social History Tobacco Use Types Packs/Day Years [...] you attend lutheran or Patient refused 2021 pentecostal services? Do [...] Complete) Information Discussed Princess, a nurse from [place], called to see if any labs need [...] documented as of this encounter Care Teams Thread Singer Relationship Specialty Start Date End Date Elsewhere, Pcp PCP - General Internal Medicine 12/25/21 documented as of this encounter
--- OUTSIDE RECORDS SUMMARY | 2022-07-06 15:33 | XMS_ITS | Encounter Summary ---
:1965 Author Organization [facility] Address [address] [place] [address] Care Team Providers Name Role Phone Elsewhere, Pcp Primary Care Provider Unavailable Reason for Referral Medication Prior Authorization - Denied Specialty Diagnoses / Procedures Referred By Contact Refer red To Contact Michael Chino M.D. Referral ID Status Reason Start Date Expiration Date Visits Requ ested Visits Authorized [id number] Denied 1 1 Encounter Details Date Type Department Care Team Description 02/26/2022 - Hospital Encounter [facility] Jam, Shoulder Joint Disorder Left; 02/27/2022 Hospital, Scientologist Cyrus Souza M.D. Pain Shoulder Left [facility] [address] [facility] [place], [place] Floor [address] [address] [facility] [phone] [place], [place] (Work) [phone] Social History Tobacco Use [...] you attend cheondoism or Patient refused 2021 restoration services? Do you belong to any clubs or No 05/17/2022 organizations such as cheondoism groups, [employer], [employer] or athletic groups, or school groups? How [...] THC multivit-min/iron/folic/ Take 1 tablet by 0 [id number] (HAIR, SKIN AND mouth daily. NAILS ADVANCED [...] - 02/27/2022 8:05 AM CDT Orthopedic Service: [facility] Admission Day: 02/26/2022 SUBJECTIVE POD1. She is [...] am until 6 pm, please page the [facility] pager at [phone] For urgent matters from 6 pm until 6 am, please page [facility] House at [phone] Michael Chino M.D. - 02/26/2022 3:03 PM CDT Orthopedic Service: [facility] Hospital Admission Day: 02/26/2022 SUBJECTIVE Patient [...] am until 6 pm, please page the [employer] pager at [phone] For urgent matters from 6 pm until 6 am, please page [facility] House at [phone] Clemente Buck, Pharm.D., R.Ph. - 02/26/2022 9:17 [...] Take 150 mg by mouth every morning. jcdqbswtkr-eaxcepxchmbax-ihjf (ESGIC) 50-325-40 mg per tablet Past Week [...] 1 spray as needed. 5 mg THC multivit-min/iron/folic/pqq878 (HAIR, SKIN AND NAILS ADVANCED ORAL) 02/25/2022 [...] (HCC) ??? Nicotine Dependence Unspecified ??? Other Snf Current Drug Therapy ??? Direct Infection Of [...] Bilateral 12/07/2019 Procedure: SINUSOTOMY ENDOSCOPY FRONTAL.; Surgeon: aDrlin Olmedo M.D.; Location: RST ROMB OR ??? SPINAL CORD STIMULATOR IMPLANT ??? TUBAL LIGATION reversed 1993 History of Present Illness: Patient is status post left reverse total shoulder arthroplasty Prior Function/Occupational Profile Dominant Hand: Right Lives With: Alone Receives Help From: dining room tables set up attendant, Family, Friend(s) ADL Assistance: Required assistance ADL Assistance Comments: Gets help from WINDOW COVERING SALES CONSULTANT for her bath/shower and for her meals IADL/Homemaking Assistance: Required assistance IADL/Homemaking Assistance Comments: Gets help for housecleaning Driving: Independent Driving Comments: takes her cane and medical alert with her. Occupational Role: On disability Occupational Role Comments: Previously worked at a [employer] and [employer] Prior Mobility/Functional Transfers Level of [place]: Modified independent Previous Transfer/Mobility Assistance Comments: Patient [...] Prescriptions were sent and filled at the [facility] pharmacy. Catalina Mccloud R.N. - 02/27/2022 12:00 [...] elsewhere status post placement antibiotic spacer. A nurse first assist was necessary for one or more the [...] be placed with approximately 70% contact with assiniboine and gros ventre tribes bone. The more superior aspect of the [...] of antibiotic spacer, implantation of reverse arthroplasty, [id number] Cyrus Polk M.D. CT CT Job ID: [id number] documented in this encounter Plan of Treatment [...] City/State/ZIP Code Phon e Number [facility] - [address] [place], [place] [address] [place] [address] [facility] [address] (ABNORMAL) Basic Metabolic [...] 02/26/2022 DTL Black/ mL/min/BSA 6:27 PM CDT Paraguayan Comment: ----ADDITIONAL INFORMATION---- Estimated GFR calculated using [...] City/State/ZIP Code Phon e Number [facility] - [address] [place], [place] [address] [place] [address] [facility] [address] [facility] (ABNORMAL) CBC with Differential, Blood (02/26/2022 3:47 PM CDT) [facility] gist Method Time Signature Hemoglobin 8.8 [...] City/State/ZIP Code Phon e Number [facility] - [address] [place] [address] [place] [address] [facility] 200 [facility] DX Shoulder Left 1 View (02/26/2022 2:47 [...] Aerobe / Anaerobe+Susc (02/26/2022 1:00 PM CDT) [facility] gist Method Time Signature Bacteria Cult, No growth 03/12/2022 DTL Aerobe/Anaerob after 14 2:02 PM CDT e+Susc days of incubation. Specimen Anatomical Collection Method Collection Time Receive d Time (Source) Location / / Volume Laterality Shoulder, Left 02/26/2022 1:00 PM 022 1:41 CDT PM CDT Comment: Specimen Source Site: Tissue 1 Narrative [facility] - 03/12/2022 2:02 PM CDT Bacterial Culture: Placed in Bactec aero bic and Bactec anaerobic bottles Cyrus Polk M.D. LAB MICROBIOLOGY - GENERAL O MARY Performing Organization Address City/[facility] Phon e Number [facility] - [address] [place], [place] [address] [address] [place], [place] [phone] [place] [address] 200 [facility] Bacteria Cult, Aerobe / Anaerobe+Susc (02/26/2022 1:00 PM CDT) [facility] Method Time Signature Bacteria Cult, No growth 03/12/2022 DTL Aerobe/Anaerob after 14 2:02 PM CDT e+Susc days of incubation. Specimen Anatomical Collection Method Collection Time Receive d Time (Source) Location / / Volume Laterality Shoulder, Left 02/26/2022 1:00 PM 022 1:38 CDT PM CDT Comment: Specimen Source Site: Tissue 3 [facility] - 03/12/2022 2:02 PM CDT Bacterial Culture: Placed in Bactec aero bic and Bactec anaerobic bottles Cyrus Polk M.D. LAB MICROBIOLOGY - GENERAL Lebron HERNANDEZ Performing Organization Address City/[facility]/ZIP Code Phon e Number [facility] - [address] [place], [place] [address] [place], [place] [phone] [place] [address] [address] [facility] Bacteria Cult, Aerobe / Anaerobe+Susc (02/26/2022 1:00 PM CDT) [facility] Method Time Signature Bacteria Cult, No growth 03/12/2022 DTL Aerobe/Anaerob after 14 2:02 PM CDT e+Susc days of incubation. Specimen Anatomical Collection Method Collection Time Receive d Time (Source) Location / / Volume Laterality Shoulder, Left 02/26/2022 1:00 PM 04/01/2 022 1:36 CDT PM CDT Comment: Specimen Source Site: Tissue 2 Narrative [facility] - 03/12/2022 2:02 PM CDT Bacterial Culture: Placed in Bactec aero bic and Bactec anaerobic bottles Cyrus Polk M.D. LAB MICROBIOLOGY - GENERAL O RDERABLES Performing Organization Address City/State/ZIP Code Phon e Number [facility] - [address] [place] [address] [place] [address] [facility] [address] [facility] Surgical Pathology, Frozen Lab (02/26/2022 1:00 PM [...] sections. ??Grossed by Nan Ledezma M.S., PA([facility]). Block Summary A Left shoulder 03/01/2022 [...] City/State/ZIP Code Phon e Number [facility] - [address] [place], [place] [address] [place] [address] [facility] [address] documented in this [...] 02/26/2022 02/27/2022 acetaminophen tablet 1,000 mg (TYLENOL) 6271 (Given - Provider: Tanesha Butt)6930 (Given - Provider: Tanesha Butt) 0434 (Given - Provider: Lauren Mckeon RBetsy)1109 (Given - Provider: Christiano ArcherBetsy) 1,000 mg, [...] Mercado RBrittonNBritton)1212 (Stopped - Provider: Tejal Gonzalez RBrittonNBrittno) 20 mL/hr, intravenous, Continuous, Starting on Tue02/26/22 [...] mg of calcium, oral, Every 2 hour MT N, indigestion, Starting on Tue02/26/22 at 1451, [...] of this encounter Care Teams Director Of Pupil Personnel Program Relationship Specialty Start Date End Date Elsewhere, Pcp PCP - General Internal Medicine 12/25/21 documented as of this encounter
--- OUTSIDE RECORDS SUMMARY | 2022-07-06 15:33 | XMS_ITS | Encounter Summary ---
:1965 Author Organization [facility] Address [address] [place] [address] Care Team Providers Name Role Phone Elsewhere, Pcp Primary Care Provider Unavailable Encounter Details Date Type Department Care Team Description 02/26/2022 Anesthesia Event [facility] OR Kaushik Carpenter, [address] [facility] M.[facility]., [place] [address] [address] [facility] [phone] [place] [phone] (Wo rk) Anesthesia Record Procedure Summary Procedure [...] h andoff to the receiving staff during [facility] we 1. Identified the patient 2. Ident [...] you attend scientologist or Patient refused 2021 mu-ism services? Do [...] Procedure Summary Date: 02/26/22 Room / Location: [address] / [facility] [place], [place] Anesthesia Start: 1212 Anesthesia Stop: 143 [...] ETT location: oral VL device: glide scope [place] scope blade size: 3 Adult tube size: [...] Pre-op diagnosis: Degenerative joint disease left. Location: [address] [facility] / [facility] [place], [place] Providers: Cyrus Polk M.D. Pertinent components [...] with patient /legal guardian or through an architecture faculty member. Risks/Benefits/Alternatives of Blood transfusion discussed with patient [...] fellow participated in the procedure, and the field sales consultant was present for the entire procedure. [...] procedure ar e in the results section. MD US GUIDE PLC NDL Routine 02/26/2022 11:53 Resu lts for this AM CDT procedure are i n the results section. MD INJ ANES BRACHIAL Routine 02/26/2022 11:53 Res [...] Kaushik Carpenter M.B., Ch.B. 3. Juana Silva, INVESTIGATOR VICE, PLATER APPRENTICE Patient location during procedure: OR / Procedure Area PROCEDURE DETAILS: Mask difficulty assessment: easy mask Final airway type: video laryngoscope Laryngeal Manipulation: no ?? Final best view of glottic structures - Cormack/Lehane Score: grade 1 ETT location: oral VL device: glide scope [place] scope blade size: 3 Adult tube size: [...] ATTESTATION STATEMENT Kaushik Carlos, Ch.B. ANESTHESIA ORDERABLES MD INJ ANES BRACHIAL PLEX, MD US GUIDE [facility] NDL, MC ANE NERVE BLOCK [...] fellow participated in the procedure, and the field sales consultant was present for the entire procedure. [...] documented as of this encounter Care Teams Concrete Precast Moulder Relationship Specialty Start Date End Date Elsewhere, Pcp PCP - General Internal Medicine 12/25/21 documented as of this encounter
--- OUTSIDE RECORDS SUMMARY | 2022-07-06 15:33 | XMS_ITS | Encounter Summary ---
:1965 Author Organization [facility] Address [address] [place] [address] Care Team Providers Name Role Phone Elsewhere, [...] you attend pentecostal or Patient refused 2021 buddhism services? Do [...] documented as of this encounter Care Teams Retail Product Advisor Relationship Specialty Start Date End Date Elsewhere, Pcp PCP - General Internal Medicine 12/25/21 documented as of this encounter
--- OUTSIDE RECORDS SUMMARY | 2022-07-06 15:33 | XMS_ITS | Encounter Summary ---
:1965 Author Organization [facility] Address [address] [place] [address] Care Team Providers Name Role Phone Elsewhere, Pcp Primary Care Provider Unavailable Encounter Details Date Type Department Care Team Description 02/26/2022 Clinical Communication [facility] Phar Janet Sarmiento, [address] [facility].Ph.T. [place], [place] [phone] [address] (Work) [phone] Social History Tobacco Use Types Packs/Day Years [...] you attend gnosticist or Patient refused 2021 restorationism services? Do [...] documented as of this encounter Care Teams Hydrotechnical Specialist Relationship Specialty Start Date End Date Elsewhere, Pcp PCP - General Internal Medicine 12/25/21 documented as of this encounter
--- OUTSIDE RECORDS SUMMARY | 2022-07-06 15:33 | XMS_ITS | Encounter Summary ---
:1965 Author Organization [facility] Address [address] [place] [address] Care Team Providers Name Role Phone Elsewhere, Pcp Primary Care Provider Unavailable Reason for Visit Outpatient (Routine) - Closed Specialty Diagnoses / Procedures Referred By Contact Refer red To Contact Orthopedic Surgery Diagnoses Pain Shoulder Left Alfredo Herrera, [facility] [address] [place] [phone] Referral ID Status Reason Start Date Expiration Date Visits Requ ested Visits Authorized [id number] Closed 12/30/2021 12/30/2022 1 1 Encounter Details Date Type Department Care Team Description 02/25/2022 Office Visit Department of Orthopedic Cyrus Polk , Pain Shoulder Left Surgery in [facility] [address] [place] [address] [address] [place] [phone] Social History Tobacco Use Types Packs/Day Years [...] you attend christianity or Patient refused 2021 lutheran services? Do you belong to any clubs or No 05/17/2022 organizations such as christianity groups, [employer], [employer] or athletic groups, or school groups? How [...] may involve the use of a medical imaging director made by a [employer] or one of my partners have collaborated to design, develop, or improve orthopedic implants, instruments, or products. Both the [facility] and the individual surgeons involved receive royalty payments from the use of those specific devices at other institutions, but no royalties or any other payments are paid for the use of those devices with any [facility] patient. The clinical rationale for the use of those devices as well as the availability and applicability of alternative devices was reviewed. He understands that the final decision for the use of a specific medical imaging director often is made at the time of [...] documented as of this encounter Care Teams Brazer Furnace Relationship Specialty Start Date End Date Elsewhere, Pcp PCP - General Internal Medicine 12/25/21 documented as of this encounter
--- OUTSIDE RECORDS SUMMARY | 2022-07-06 15:33 | XMS_ITS | Encounter Summary ---
:1965 Author Organization [facility] Address [address] [place] [address] Care Team Providers Name Role Phone Elsewhere, Pcp Primary Care Provider Unavailable Encounter Details Date Type Department Care Team Description 02/26/2022 Surgery [facility] OR Cyrus Polk, ARTHROPLASTY REPLACEMENT [address] [facility] [place] [address] 200 [facility] [phone] [place] [address] Social History Tobacco Use Types Packs/Day Years [...] you attend episcopal or Patient refused 2021 zoroastrian services? Do [...] or the highest technical, or vocational p [employer] degree you have received? Sex Assigned at [...] THC multivit-min/iron/folic/ Take 1 tablet by 0 [id number] (HAIR, SKIN AND mouth daily. NAILS ADVANCED [...] - 02/27/2022 8:05 AM CDT [facility]: [facility]22 SUBJECTIVE POD1. She [...] am until 6 pm, please page the [facility] pager at [phone] For urgent matters from 6 pm until 6 am, please page Ortho House at [phone] Michael Chino M.D. - 02/26/2022 3:03 PM CDT Orthopedic Service: [facility] Hospital Admission Day: 02/26/2022 SUBJECTIVE Patient [...] please page the [facility] Service pager at [phone] For urgent matters from 6 pm until 6 am, please page Arthur Smallwood at [phone] Clemente Buck, Pharm.D., R.Ph. - 02/26/2022 9:17 [...] Take 150 mg by mouth every morning. jqqxgfnoqh-wgkrgswjuwsrt-slnt (ESGIC) 50-325-40 mg per tablet Past Week [...] 1 spray as needed. 5 mg THC multivit-min/iron/folic/uvb798 (HAIR, SKIN AND NAILS ADVANCED ORAL) 02/25/2022 [...] (HCC) ??? Nicotine Dependence Unspecified ??? Other Mcfp Current Drug Therapy ??? Direct Infection Of [...] Right Lives With: Alone Receives Help From: international flight attendant, Family, Friend(s) ADL Assistance: Required assistance ADL Assistance Comments: Gets help from LADIES UNDERWEAR OPERATOR for her bath/shower and for her meals IADL/Homemaking Assistance: Required assistance IADL/Homemaking Assistance Comments: Gets help for housecleaning Driving: Independent Driving Comments: takes her cane and medical alert with her. Occupational Role: On disability Occupational Role Comments: Previously worked at a [employer] and [employer] Prior Mobility/Functional Transfers Level of [place]: Modified independent Previous Transfer/Mobility Assistance Comments: Patient [...] mask during therapy session: yes Outcome Measures -[facility] Inpatient Short Form: AM-[facility] Basic Mobility (V.2) How much help from [...] Climbing 3-5 steps with a railing?: None AM-[facility] Basic Mobility (V.2) Raw Score: 24 AM-[facility] Basic Mobility (V.2) Standardized Score: 57.68 Interpretation: Clinicians answer the AM-[facility] Inpatient Short Form based on observed [...] Prescriptions were sent and filled at the [facility] pharmacy. Catalina Mccloud R.N. - 02/27/2022 [...] status post placement antibiotic spacer. A first line supervisor was necessary for one or more the [...] be placed with approximately 70% contact with [place] bone. The more superior aspect of the [...] of antibiotic spacer, implantation of reverse arthroplasty, [id number] Cyrus Polk M.D. CT CT Job ID: [id number] documented in this encounter Plan of Treatment [...] ALT (Alanine Aminotransferase) (02/26/2022 3:47 PM CDT) [facility] Method Time Signature Alanine 11 7 - 45 02/26/2022 DTL Aminotransferase U/L 4:53 PM CDT (ALT), S Specimen Anatomical Collection Method Collection Time Receive d Time (Source) Location / / Volume Laterality Blood (Blood, 02/26/2022 3:47 PM 02/27/20 4:29 Venous) CDT PM CDT Michael Chino M.D. LAB BLOOD ADD-ON Performing Organization Address City/State/ZIP Code Phon e Number [facility] - [address] [place], [place] [address] [facility] [place] [address] [facility] [address] [facility] (ABNORMAL) Basic Metabolic Panel (02/26/2022 3:47 PM [...] 02/26/2022 DTL Black/ mL/min/BSA 6:27 PM CDT New Zealander Comment: ----ADDITIONAL INFORMATION---- Estimated GFR calculated using [...] Organization Address City/State/ZIP Code Phon e Number [facility] - [address] [place], [place] [address] [facility] [place] [address] [facility] [address] [facility] (ABNORMAL) CBC with Differential, Blood (02/26/2022 3:47 PM CDT) [facility] gist Method Time Signature Hemoglobin [...] Organization Address City/State/ZIP Code Phon e Number [facility] - [address] [place] [address] [facility] [place] [address] [facility] [address] [facility] DX Shoulder Left 1 View (02/26/2022 2:47 [...] Aerobe / Anaerobe+Susc (02/26/2022 1:00 PM CDT) [facility] Method Time Signature Bacteria Cult, No growth 03/12/2022 DTL Aerobe/Anaerob after 14 2:02 PM CDT e+Susc days of incubation. Specimen Anatomical Collection Method Collection Time Receive d Time (Source) Location / / Volume Laterality Shoulder, Left 02/26/2022 1:00 PM 022 1:41 CDT PM CDT Comment: Specimen Source Site: Tissue 1 Narrative [facility] - [facility] - 03/12/2022 2:02 PM CDT Bacterial Culture: Placed in Bactec aero bic and Bactec anaerobic bottles Cyrus Polk M.D. LAB MICROBIOLOGY - GENERAL O RDERABLES Performing Organization Address City/[facility]/ZIP Code Phon e Number [facility] - 200 [place], [place] [address] [place] [address] [place] [id number] [place] [address] Bacteria Cult, Aerobe / Anaerobe+Susc (02/26/2022 1:00 PM CDT) [facility] Method Time Signature Bacteria Cult, No growth 03/12/2022 DTL Aerobe/Anaerob after 14 2:02 PM CDT e+Susc days of incubation. Specimen Anatomical Collection Method Collection Time Receive d Time (Source) Location / / Volume Laterality Shoulder, Left 02/26/2022 1:00 PM 022 1:38 CDT PM CDT Comment: Specimen Source Site: Tissue 3 Narrative [facility] - 03/12/2022 2:02 PM CDT Bacterial Culture: Placed in Bactec aero bic and Bactec anaerobic bottles Cyrus Polk M.D. LAB MICROBIOLOGY - GENERAL O PATERASARAH Performing Organization Address City/[facility]/ZIP Code Phon e Number [facility] - 200 [place], [place] [address] [place] [address] Bacteria Cult, Aerobe / Anaerobe+Susc (02/26/2022 1:00 PM CDT) [facility] Method Time Signature Bacteria Cult, No growth 03/12/2022 DTL Aerobe/Anaerob after 14 2:02 PM CDT e+Susc days of incubation. Specimen Anatomical Collection Method Collection Time Receive d Time (Source) Location / / Volume Laterality Shoulder, Left 02/26/2022 1:00 PM 022 1:36 CDT PM CDT Comment: Specimen Source Site: Tissue 2 Narrative [facility] - 03/12/2022 2:02 PM CDT Bacterial Culture: Placed in Bactec aero bic and Bactec anaerobic bottles Cyrus Polk M.D. LAB MICROBIOLOGY - GENERAL O RDERASARAH Performing Organization Address City/State/ZIP Code Phon e Number [facility] - [address] [place] [address] Surgical Pathology, Frozen Lab (02/26/2022 1:00 [...] permanent sections. ??Grossed by Nan Ledezma M.S., PA([facility]). Block Summary A Left shoulder 03/01/2022 [...] Code Phon e Number [facility] - [address] [place] [phone] [facility] [place] [address] documented in this encounter Visit Diagnoses [...] mg (LYRICA) 2041 (Given - Provider: Tanesha Butt) 0825 (Given [...] 2 hour IN N, indigestion, Starting on Tue02/26/22 at 1451, [...] documented as of this encounter Care Teams Safemaker Relationship Specialty Start Date End Date Elsewhere, Pcp PCP - General Internal Medicine 12/25/21 documented as of this encounter
--- OUTSIDE RECORDS SUMMARY | 2022-07-06 15:33 | XMS_ITS | Encounter Summary ---
:1965 Author Organization [facility] Address [address] [place] [address] Care Team Providers Name Role Phone Elsewhere, Pcp Primary Care Provider Unavailable Reason for Referral MRI/CAT/PET Scan (Routine) - Closed Specialty Diagnoses / Procedures Referred By Contact Refer red To Contact Radiology Diagnoses Painful Total Joint Arthroplasty Initial ([facility]) Michael Chino M.D. [facility] Procedures CT Shoulder Left without IV Contrast [address] [place] [address] Referral ID Status Reason Start Date Expiration Date Visits Requ ested Visits Authorized [id number] Closed 02/25/2022 02/25/2023 1 1 Encounter Details Date Type Department Care Team Description 02/25/2022 Orders Only Department of Michael Chino, Painful T otal Joint Orthopedic Surgery in [place].Neri Arthro plasty Initial [place], [place] ([facility]) [address] [place] [address] Social History Tobacco Use Types Packs/Day Years [...] or relatives? How often do you attend temple or Patient refused 2021 yazidism services? Do you belong to any clubs or No 05/17/2022 organizations such as temple groups, [employer], fra[employer]us or athletic groups, or school groups? How [...] documented as of this encounter Care Teams Sleep Manager Relationship Specialty Start Date End Date Elsewhere, Pcp PCP - General Internal Medicine 12/25/21 documented as of this encounter
--- OUTSIDE RECORDS SUMMARY | 2022-07-06 15:33 | XMS_ITS | Encounter Summary ---
:1965 Author Organization [facility] Address [address] [place] [address] Care Team Providers Name Role Phone Elsewhere, Pcp Primary Care Provider Unavailable Encounter Details Date Type Department Care Team Description 02/26/2022 Clinical Communication [facility] Austyn Breaux, Pharmacy mUu Alejo [address] [place] [place] [address] Social History Tobacco Use Types [...] you attend hindu or Patient refused 2021 sabianism services? Do [...] as of this encounter Care Teams Associate Entertainment Editor Relationship Specialty Start Date End Date Elsewhere, Pcp PCP - General Internal Medicine 12/25/21 documented as of this encounter
--- OUTSIDE RECORDS SUMMARY | 2022-07-06 15:33 | XMS_ITS | Encounter Summary ---
:1965 Author Organization [facility] Address [address] [place] [address] Care Team Providers Name Role Phone Elsewhere, Pcp Primary Care Provider Unavailable Encounter Details Date Type Department Care Team Description 02/26/2022 Clinical Communication [facility] Blanca Galan Eisenberg C.Ph.T. [address] [facility] [phone] [place], [place] (Work) [phone] Social History Tobacco Use [...] you attend judaism or Patient refused 2021 islam services? Do [...] as of this encounter Care Teams Senior Network Systems Engineer Relationship Specialty Start Date End Date Elsewhere, Pcp PCP - General Internal Medicine 12/25/21 documented as of this encounter
--- OUTSIDE RECORDS SUMMARY | 2022-07-06 15:33 | XMS_ITS | Encounter Summary ---
:1965 Author Organization [facility] Address [address] [place] [address] Care Team Providers Name Role Phone Elsewhere, Pcp Primary Care Provider Unavailable Reason for Referral MRI/CAT/PET Scan (Routine) - Closed Specialty Diagnoses / Procedures Referred By Contact Refer red To Contact Radiology Diagnoses Painful Total Joint Arthroplasty Initial ([facility]) Michael Chino M.D. [facility] Procedures CT Shoulder Left without IV Contrast [address] [place] [address] Referral ID Status Reason Start Date Expiration Date Visits Requ ested Visits Authorized [id number] Closed 02/25/2022 02/25/2023 1 1 Reason for Visit MRI/CAT/PET Scan (Routine) - Closed Specialty Diagnoses / Procedures Referred By Contact Refer red To Contact Radiology Diagnoses Painful Total Joint Arthroplasty Initial ([facility]) Michael Chino M.D. [facility] Procedures CT Shoulder Left without IV Contrast [address] [place] [address] Referral ID Status Reason Start Date Expiration Date Visits Requ ested Visits Authorized [id number] Closed 02/25/2022 02/25/2023 1 1 Encounter Details Date Type Department Care Team Description 02/25/2022 Hospital Encounter Department of Michael Chino Total Joint Radiology jimmy Celaya M.D. Arthroplasty In [facility] [address] [place] [address] Social History Tobacco Use Types Packs/Day Years [...] you attend jewish or Patient refused 2021 samaritan services? Do you belong to any clubs or No 05/17/2022 organizations such as jewish groups, unions, fraNatural Cleaners [place] or athletic groups, or school groups? How [...] THC multivit-min/iron/folic/ Take 1 tablet by 0 [id number] (HAIR, SKIN AND mouth daily. NAILS ADVANCED [...] as of this encounter Care Teams Manager Office Services Relationship Specialty Start Date End Date Elsewhere, Pcp PCP - General Internal Medicine 12/25/21 documented as of this encounter
--- OUTSIDE RECORDS SUMMARY | 2022-07-06 15:34 | XMS_ITS | Encounter Summary ---
:[address] [facility] Address [address] [place] [address] Care Team Providers Name Role Phone Elsewhere, Pcp Primary Care Provider Unavailable Encounter Details Date Type Department Care Team Description 01/08/2022 Clinical Communication Pharmacy Prior Auth ОЛЬГА Carrera M.D. [phone] Social History Tobacco Use Types Packs/Day Years [...] you attend sabianist or Patient refused 2021 shinto services? Do [...] Camelia CINTRON. Thank you, The OPPA Team FINISH OPERATOR documented in this encounter Plan of Treatment Not on filedocumented as of this encounter Visit Diagnoses Not on filedocumented in this encounter Additional Health Concerns Assessment Noted Time PHQ-9 Depression Total Score: 16 02/11/2021 12:00 AM C DT documented as of this encounter Care Teams Account Group Supervisor Relationship Specialty Start Date End Date Elsewhere, Pcp PCP - General Internal Medicine 12/25/21 documented as of this encounter
--- OUTSIDE RECORDS SUMMARY | 2022-07-06 15:34 | XMS_ITS | Encounter Summary ---
:1965 Author Organization [facility] Address [address] [place] [address] Care Team Providers Name Role Phone Elsewhere, Pcp Primary Care Provider Unavailable Reason for Visit Reason Comments OPAT Intervention Encounter Details Date Type Department Care Team Description 01/28/2022 Clinical Communication Section of Ruth Eddy (Intervention Infectious T, R.N. ) Diseases in [address] [place] [address] [place] [address] [place], [place] (Work) [phone] Social History Tobacco Use Types Packs/Day Years [...] you attend congregational or Patient refused 2021 nondenominational services? Do [...] are for now to obtain ALP trend. HIATRY INSTRUCTOR Telephone Encounter - Desirae Domingo R.N. - 02/01/2022 12:11 PM CST Maritza calls from [place] regarding Alk phos from 01/28. It is greater than 1.5 the upper limit of normal. HIATRY INSTRUCTOR Telephone Encounter - Su Greene, Pharm.D., R.Ph. - 01/29/2022 8:49 AM CST Reviewed WBC trend including WBC on 01/28, no changes at this time, see note from my colleague Jennifer Roca for details. HIATRY INSTRUCTOR Telephone Encounter - Ruth Eddy R.N. - 01/29/2022 8:14 AM CST OPAT NOTE ?? Infusion Provider: [facility], phone: [phone], fax: [phone] Labs and site care at [facility], phone: [phone] Antimicrobial(s) currently prescribed: See Med List Hyperlink in note Firm stop date: 02/11/22 ?? Lab results from are viewable in the MCR record--listed as External Labs (received via fax, which has been uploaded to Document Viewer/Media) ?? Interpretation and action: The labs were reviewed. WBC and ANC are improving. I will send this to the provider for review. HIATRY INSTRUCTOR Telephone Encounter - Jennifer Roca Pharm.D., R.Ph. - 01/28/2022 10:21 AM PSYCHIATRY INSTRUCTOR Pertinent labs and antimicrobial regimen as indicated [...] time. For monitoring: continue weekly OPAT labs. HIATRY INSTRUCTOR Telephone Encounter - Ruth Eddy RBrittonN. - 01/28/2022 9:40 AM CST OPAT NOTE Infusion Provider: [facility], phone: [phone], fax: [phone] Labs and site care at [facility], phone: [phone] Antimicrobial(s) currently prescribed: See Med List Hyperlink in note Firm stop date: 02/11/22 Lab results from 01/21/2022 are viewable in the MCR record--listed as External Labs (received via fax, which has been uploaded to Document Viewer/Media) Interpretation and action: The labs were reviewed. WBC is 3.6 and ANC is 1.42. Alk Phos was not done. [facility]. Orders were sent to [facility] that included alk phos that will be drawn today, 01-28-2022. HIATRY INSTRUCTOR documented in this encounter Plan of Treatment Not on filedocumented as of this encounter Procedures Procedure Name Priority Date/Time Associated Comments Diagnosis CBC WITH DIFFERENTIAL, B Routine 01/28/2022 3:00 Results for this PM PSYCHIATRY INSTRUCTOR procedure are i n the results section. ALANINE AMINOTRANSFERASE Routine 01/28/2022 3:00 Results for this (ALT), S/P PM PSYCHIATRY INSTRUCTOR procedure are i n the results section. ALKALINE PHOSPHATASE, Routine 01/28/2022 3:00 Res ults for this S/P PM PSYCHIATRY INSTRUCTOR procedure are i n the results section. CREATININE WITH EGFR, Routine 01/28/2022 3:00 Res ults for this S/P PM PSYCHIATRY INSTRUCTOR procedure are i n the results [...] Results ALT (Alanine Aminotransferase) (01/28/2022 3:00 PM PSYCHIATRY INSTRUCTOR) athologist Signature EXT ALT 20 4 - 35 [facility] REFERRAL LAB Specimen (Source) Anatomical Location Collection Method / Collectio n Time Received Time / Laterality Volume Blood (Blood, Venous) Laly Ward APRN, C.N.P. LAB BLOOD ADD-ON Performing Organization Address City/State/ZIP Code Phon e Number MISC REFERRAL LAB (ABNORMAL) Alkaline Phosphatase (01/28/2022 3:00 PM PSYCHIATRY INSTRUCTOR) athologist Signature EXT Alkaline 97 (A) 40 - 50 MISC REFERRAL Phosphatase LAB Specimen (Source) Anatomical Location Collection Method / Collectio n Time Received Time / Laterality Volume Blood (Blood, Venous) Laly Ward APRN, C.N.P. LAB BLOOD ADD-ON Performing Organization Address City/[facility]/ZIP Code Phon e Number MISC REFERRAL LAB Creatinine with Estimated GFR (01/28/2022 3:00 PM PSYCHIATRY INSTRUCTOR) athologist Signature EXT Creatinine 0.6 0.5 - 1.5 MISC REFERRAL mg/dL LAB Specimen (Source) Anatomical Location Collection Method / Collectio n Time Received Time / Laterality Volume Blood (Blood, Venous) Narrative This result has an attachment that is no t available. Laly Ward APRN, C.N.P. LAB BLOOD ADD-ON Performing Organization Address City/[facility]/ZIP Code Phon e Number MISC REFERRAL LAB (ABNORMAL) CBC with Differential, Blood (01/28/2022 3:00 PM PSYCHIATRY INSTRUCTOR) Analysis Performed At Patho logist Time Signature [...] / Laterality Volume Blood (Blood, Venous) Gucci aSlvador M.D. LAB BLOOD ADD-ON Performing Organization Address [...] documented as of this encounter Care Teams Flow Match Sofa Cutter Relationship Specialty Start Date End Date Elsewhere, Pcp PCP - General Internal Medicine 12/25/21 documented as of this encounter
--- OUTSIDE RECORDS SUMMARY | 2022-07-06 15:34 | XMS_ITS | Encounter Summary ---
:1965 Author Organization [facility] Address [address] [place] [address] Care Team Providers Name Role Phone Elsewhere, Pcp Primary Care Provider Unavailable Reason for Visit Reason Comments OPAT Intervention Encounter Details Date Type Department Care Team Description 01/07/2022 Clinical Communication Section of MATTHEW Tolbert (Intervention) Infectious Diseases [facility] [phone] [address] [facility] (Work) [place] [address] Social History Tobacco Use Types Packs/Day Years [...] you attend sikhism or Patient refused 2021 baptism services? Do [...] Dandy Reyes, Pharm.D. - 01/12/2022 9:38 AM AUTO COLLISION REPAIR INSTRUCTOR Pertinent labs and antimicrobial regimen as [...] >0.3 mg/dL and absolute value >1.0 mg/dL. COLLISION REPAIR INSTRUCTOR Telephone Encounter - Steven Dennis R.N. - 01/12/2022 9:13 AM CST OPAT NOTE Infusion Provider: Dennis TA Specialty Infusion Services, phone: [phone], fax: [phone] Labs and site care at [facility], phone: [phone] Antimicrobial(s) currently prescribed: See Med List Hyperlink in note Firm stop date: 02/11/22 Lab results from 01/07/22 are viewable in the MCR record--listed as External Labs (received via fax, which has been uploaded to Document Viewer/Media) Interpretation and action: Will send to the OPAT pharmacist to review the creatinine, which has decreased >30%. Alk phos wasnot drawn. COLLISION REPAIR INSTRUCTOR documented in this encounter Plan of Treatment Not on filedocumented as of this encounter Procedures Procedure Name Priority Date/Time Associated Comments Diagnosis CBC WITH DIFFERENTIAL, B Routine 01/07/2022 2:30 Results for this PM AUTO COLLISION REPAIR INSTRUCTOR procedure are i n the results section. ALANINE AMINOTRANSFERASE Routine 01/07/2022 2:30 Results for this (ALT), S/P PM AUTO COLLISION REPAIR INSTRUCTOR procedure are i n the results section. CREATININE WITH EGFR, Routine 01/07/2022 2:30 Res ults for this S/P PM AUTO COLLISION REPAIR INSTRUCTOR procedure are i n the results section. documented in this encounter Results ALT (Alanine Aminotransferase) (01/07/2022 2:30 PM AUTO COLLISION REPAIR INSTRUCTOR) P athologist Signature EXT ALT 10 4 - 35 [facility]) Specimen (Source) Anatomical Location Collection Method / Collectio n Time Received Time / Laterality Volume Blood (Blood, Venous) Laly Ward APRN, C.N.P. LAB BLOOD ADD-ON Performing Organization Address City/[facility]/ZIP [facility] Phon e Number [facility], [address] [place] [address] [facility]) Creatinine with Estimated GFR (01/07/2022 2:30 PM AUTO COLLISION REPAIR INSTRUCTOR) Analysis Performed At Patho logist Time Signature EXT Creatinine 0.5 0.5 - 1.5 [place] mg/dL [facility]) Specimen (Source) Anatomical Location Collection Method / Collectio n Time Received Time / Laterality Volume Blood (Blood, Venous) Narrative This result has an attachment that is no t available. Laly Ward APRN, C.N.P. LAB BLOOD ADD-ON Performing Organization Address City/[facility]/ZIP [facility] Phon e Number [facility], [address] [place] [address] [place] [id number] [facility]) (ABNORMAL) CBC with Differential, Blood (01/07/2022 2:30 PM AUTO COLLISION REPAIR INSTRUCTOR) [facility] gist Method Time Signature EXT Platelet 349 150 - 450 [facility], [facility]) EXT Eosinophils 0.28 0 - 0.5 [facility]) EXT Hemoglobin 8.7 (A) 12 - 15.5 [facility], [facility]) EXT Absolute 3.19 1.7 - 7 [place] Neutrophils [facility], [facility]) EXT White Blood 5.4 5.0 - [place] Cell (WBC) 10.0 [facility]) Specimen (Source) Anatomical Location Collection Method / Collectio n Time Received Time / Laterality Volume Blood (Blood, Venous) Narrative This result has an attachment that is no t available. Laly Ward APRN C.N.P. LAB BLOOD ADD-ON Performing Organization Address City/State/ZIP Code Phon e Number [facility], [address] [place] [address] [facility]) documented in this encounter Visit Diagnoses Not on filedocumented in this encounter Additional Health Concerns Assessment Noted Time PHQ-9 Depression Total Score: 16 02/11/2021 12:00 AM C DT documented as of this encounter Care Teams Mend Worker Relationship Specialty Start Date End Date Elsewhere, Pcp PCP - General Internal Medicine 12/25/21 documented as of this encounter
--- OUTSIDE RECORDS SUMMARY | 2022-07-06 15:34 | XMS_ITS | Encounter Summary ---
:1965 Author Organization [facility] Address [address] [place] [address] Care Team Providers Name Role Phone Elsewhere, Pcp Primary Care Provider Unavailable Encounter Details Date Type Department Care Team Description 01/01/2022 Clinical Communication [facility] Sapna Dodge C.Ph.T. [address] [facility] [phone] [place], [place] (Work[place] [phone] Social History Tobacco Use [...] you attend confucianism or Patient refused 2021 judaism services? Do [...] as of this encounter Care Teams Director Federal Relationship Specialty Start Date End Date Elsewhere, Pcp PCP - General Internal Medicine 12/25/21 documented as of this encounter
--- OUTSIDE RECORDS SUMMARY | 2022-07-06 15:34 | XMS_ITS | Encounter Summary ---
:1965 Author Organization [facility] Address [address] [place] [address] Care Team Providers Name Role Phone Elsewhere, Pcp Primary Care Provider Unavailable Reason for Referral Outpatient (Routine) - Authorized Specialty Diagnoses / Procedures Referred By Contact Refer red To Contact Diagnoses Car Worker Helper Antibiotic Treatment Tejal Medley MPAS, P.A.-C., M.S. [address] [place] [phone] Referral ID Status Reason Start Expiration Visits Visits Date Date Requested Authorized [id number] Authorized Patient 02/08/2022 02/08/2023 1 1 Preference Reason for Visit Reason Comments OPAT Care Coordination Encounter Details Date Type Department Care Team Description 02/08/2022 Clinical Communication Section of Desirae Domingo (Care Infectious Diseases M, R.N. Coordination) in [place], [address] [place] [address] [place] [address] [place], [place] [phone] [address] (Work) [phone] Social History Tobacco Use Types Packs/Day Years [...] you attend sabianist or Patient refused 2021 protestant services? Do you belong to any clubs or No 05/17/2022 organizations such as sabianist groups, unions, fraSyndax Pharmaceuticals or athletic groups, or school groups? How [...] highest level of school Associate degree: [employer], 03/24/2021 you have completed or the highest technical, or vocational p john degree you have received? Sex Assigned at Date Recorded Female 03/01/2019 10:12 AM CDT documented as of this encounter Miscellaneous Notes Telephone Encounter - Desirae Domingo RBrittonN. - 02/08/2022 12:06 PM CDT Maritza calls from [employer]. [employer] stop date of 02/11 for IV antibiotics. Maritza requests order be faxed to [facility] where patient has labs and PICC site care done. I called the [facility], .Pull PIC order can be faxed to [phone]. documented in this encounter Plan of Treatment Not on filedocumented as of this encounter Visit Diagnoses Diagnosis Half-Way Antibiotic Treatment - Primary documented in this encounter Additional Health Concerns Assessment Noted Time PHQ-9 Depression Total Score: 16 02/11/2021 12:00 AM C DT documented as of this encounter Care Teams Tradeshow Worker Relationship Specialty Start Date End Date Elsewhere, Pcp PCP - General Internal Medicine 12/25/21 documented as of this encounter
--- OUTSIDE RECORDS SUMMARY | 2022-07-06 15:34 | XMS_ITS | Encounter Summary ---
:1965 Author Organization [facility] Address [address] [place] [address] Care Team Providers Name Role Phone Elsewhere, Pcp Primary Care Provider Unavailable Reason for Visit Reason Comments Labs Only Encounter Details Date Type Department Care Team Description 02/05/2022 Documentation Section of Infectious Amna Kaur , Labs Only Diseases in [facility] 200 [facility] 200 [place] [address] [phone] Social History Tobacco Use Types Packs/Day Years [...] you attend islam or Patient refused 2021 latter-day services? Do [...] PM CST Labs entered at this time. PRINTER documented in this encounter Plan of Treatment Not on filedocumented as of this encounter Procedures Procedure Name Priority Date/Time Associated Comments Diagnosis CBC WITH DIFFERENTIAL, B Routine 02/04/2022 3:06 Results for this PM TELEPRINTER procedure are i n the results section. ALANINE AMINOTRANSFERASE Routine 02/04/2022 3:06 Results for this (ALT), S/P PM TELEPRINTER procedure are i n the results section. ALKALINE PHOSPHATASE, Routine 02/04/2022 3:06 Res ults for this S/P PM TELEPRINTER procedure are i n the results section. CREATININE WITH EGFR, Routine 02/04/2022 3:06 Res ults for this S/P PM TELEPRINTER procedure are i n the results section. documented in this encounter Results ALT (Alanine Aminotransferase) (02/04/2022 3:06 PM TELEPRINTER) P athologist Signature EXT ALT 20 4 - 35 OTHER (SPECIFY IN PNEUMATIC JACK OPERATOR) Specimen (Source) Anatomical Location Collection Method / Collectio n Time Received Time / Laterality Volume Blood (Blood, Venous) Resulting Agency Comment [facility] Gucci Salvador M.D. LAB BLOOD ADD-ON Performing Organization Address City/State/ZIP Code Phon e Number OTHER (SPECIFY IN PNEUMATIC JACK OPERATOR) OTHER (SPECIFY IN PNEUMATIC JACK OPERATOR) N/A Alkaline Phosphatase (02/04/2022 3:06 PM TELEPRINTER) P athologist Signature EXT Alkaline 102 40 - 150 OTHER (SPECIFY Phosphatase IN PNEUMATIC JACK OPERATOR) Specimen (Source) Anatomical Location Collection Method / Collectio n Time Received Time / Laterality Volume Blood (Blood, Venous) Resulting Agency Comment [facility] Gucci Salvador M.D. LAB BLOOD ADD-ON Performing Organization Address City/State/ZIP [facility] Phon e Number OTHER (SPECIFY IN PNEUMATIC JACK OPERATOR) OTHER (SPECIFY IN PNEUMATIC JACK OPERATOR) N/A Creatinine with Estimated GFR (02/04/2022 3:06 PM TELEPRINTER) P athologist Signature EXT Creatinine 0.7 0.5 - 1.5 OTHER (SPECIFY mg/dL IN PNEUMATIC JACK OPERATOR) Specimen (Source) Anatomical Location Collection Method / Collectio n Time Received Time / Laterality Volume Blood (Blood, Venous) Resulting Agency Comment [facility] Gucci Salvador M.D. LAB BLOOD ADD-ON Performing Organization Address City/[facility] Phon e Number OTHER (SPECIFY IN PNEUMATIC JACK OPERATOR) OTHER (SPECIFY IN PNEUMATIC JACK OPERATOR) N/A (ABNORMAL) CBC with Differential, Blood (02/04/2022 3:06 PM TELEPRINTER) P athologist Signature EXT Platelet 253 150 - 450 OTHER Count (SPECIFY IN PNEUMATIC JACK OPERATOR) EXT Hemoglobin 9.1 (A) 12 - 15.5 OTHER (SPECIFY IN PNEUMATIC JACK OPERATOR) EXT White Blood 4.0 (A) 5.0 - 10.0 OTHER Cell (WBC) (SPECIFY IN Count PNEUMATIC JACK OPERATOR) Specimen (Source) Anatomical Location Collection Method / Collectio n Time Received Time / Laterality Volume Blood (Blood, Venous) Narrative This result has an attachment that is no t available. Resulting Agency Comment [facility] Gucci Hernandezk Lilian LAB BLOOD ADD-ON Performing Organization Address City/State/ZIP [facility] Phon e Number OTHER (SPECIFY IN PNEUMATIC JACK OPERATOR) OTHER (SPECIFY IN PNEUMATIC JACK OPERATOR) N/A documented in this encounter Visit Diagnoses Not on filedocumented in this encounter Additional Health Concerns Assessment Noted Time PHQ-9 Depression Total Score: 16 02/11/2021 12:00 AM C DT documented as of this encounter Care Teams Bridge Gang Worker Relationship Specialty Start Date End Date Elsewhere, Pcp PCP - General Internal Medicine 12/25/21 documented as of this encounter
--- OUTSIDE RECORDS SUMMARY | 2022-07-06 15:34 | XMS_ITS | Encounter Summary ---
:1965 Author Organization [facility] Address [address] [place] [address] Care Team Providers Name Role Phone Elsewhere, Pcp Primary Care Provider Unavailable Reason for Referral Outpatient (Routine) - Closed Specialty Diagnoses / Procedures Referred By Contact Refer red To Contact Infectious Diseases Diagnoses Aftercare Total Shoulder Arthroplasty Jose Guadalupe Nixon [place] M.D. 200 [place] [address] Referral ID Status Reason Start Date Expiration Date Visits Requ ested Visits Authorized [id number] Closed 01/01/2022 01/01/2023 1 1 EF OPERATOR Reason for Visit Reason Comments OPAT Post Hospital Follow-up Encounter Details Date Type Department Care Team Description 01/01/2022 Clinical Communication RST HIM MATTHEW Nixon; Post Hospital [address] [place] [address] Jose Guadalupe Garcia M.D. Follow-up [place], [place] [address] [place] [phone] [place] [address] Social History Tobacco Use Types Packs/Day Years [...] you attend temple or Patient refused 2021 jehovah's witness services? Do you belong to any clubs or No 05/17/2022 organizations such as temple groups, unions, fraClearSlide or athletic groups, or school groups? How [...] Name Type Priority Associated Diagnoses Order S [facility] Infectious Disease Outpatient Routine Aftercare Total 1 [...] M.D. LAB BLOOD ADD-ON Performing Organization Address City/State/[facility] Phon e Number [facility] - [address] [place] [id number] [address] CRP (C-Reactive Protein) (02/25/2022 10:09 AM CDT) P athologist Signature C-Reactive <3.0 <=8.0 mg/L 02/25/2022 DTL Protein (CRP), 11:34 AM CDT S Specimen Anatomical Collection Method Collection Time Receive d Time (Source) Location / / Volume Laterality Blood (Blood, 02/25/2022 10:09 02/25/2022 Venous) AM CDT 11:00 AM CDT Jose Guadalupe Nixon M.D. LAB BLOOD ADD-ON Performing Organization Address [facility] Phon e Number [facility] - [address] (ABNORMAL) CBC with Differential, Blood (02/25/2022 [...] Code Phon e Number [facility] - [address] [place], [place] [address] [facility] [place] [address] [facility] [address] documented in this encounter Visit Diagnoses Diagnosis Aftercare Total Shoulder Arthroplasty - Primary documented in this encounter Additional Health Concerns Assessment Noted Time PHQ-9 Depression Total Score: 16 02/11/2021 12:00 AM C DT documented as of this encounter Care Teams Polysilicon Preparation Worker Relationship Specialty Start Date End Date Elsewhere, Pcp PCP - General Internal Medicine 12/25/21 documented as of this encounter
--- OUTSIDE RECORDS SUMMARY | 2022-07-06 15:34 | XMS_ITS | Encounter Summary ---
:1965 Author Organization [facility] Address [address] [place] [address] Care Team Providers Name Role Phone Elsewhere, Pcp Primary Care Provider Unavailable Reason for Visit Reason Comments OPAT Normal Labs Encounter Details Date Type Department Care Team Description 01/15/2022 Clinical Communication Section of Madhav Rizo (Normal Labs) Infectious Diseases M, M.P.H., in [address] 200 [place] [phone] Social History Tobacco Use Types Packs/Day Years [...] you attend christian or Patient refused 2021 hindu services? Do [...] Rizo M.P.H., R.N. - 01/15/2022 3:24 PM LIVESTOCK YARD ATTENDANT OPAT NOTE Infusion Provider: Dennis [facility], phone: [phone], fax: [phone] Labs and site care at [facility], phone: [phone] Antimicrobial(s) currently prescribed: See Med List Hyperlink in note Firm stop date: 02/11/22 Lab results from 01/14/2022 are viewable in the MCR record--listed as External Labs (received via fax, which has been uploaded to Document Viewer/Media) Interpretation and action: The labs were satisfactory and acceptable. No change in plan as per OPAT Practice Guideline. STOCK YARD ATTENDANT documented in this encounter Plan of Treatment [...] Signature EXT ALT 14 4 - 35 [facility] Specimen (Source) Anatomical Location Collection Method / Collectio n Time Received Time / Laterality Volume Blood (Blood, Venous) Laly Ward APRN, C.N.P. LAB BLOOD ADD-ON Performing Organization Address City/[facility]/ZIP Code Phon e Number [facility] [address] [place] [address] Creatinine with Estimated GFR (01/14/2022) athologist Signature EXT Creatinine 0.6 0.5 - 1.5 [place] mg/dL [facility] Specimen (Source) Anatomical Location Collection Method / Collectio n Time Received Time / Laterality Volume Blood (Blood, Venous) Laly Ward APRN, C.N.P. LAB BLOOD ADD-ON Performing Organization Address City/[facility]/ZIP Code Phon e Number [facility] [address] [place] [address] (ABNORMAL) CBC with Differential, Blood (01/14/2022) athologist Signature EXT Platelet 406 150 - 450 [facility] EXT Hemoglobin 9 (A) 12 - 15.5 [facility] EXT Absolute 3.49 1.7 - 7 [place] Neutrophils [facility] EXT White Blood 5.7 5.0 - 10.0 [place] Cell (WBC) Count [facility] Specimen (Source) Anatomical Location Collection Method / Collectio n Time Received Time / Laterality Volume Blood (Blood, Venous) Narrative This result has an attachment that is no t available. Laly Ward APRN, C.N.P. LAB BLOOD ADD-ON Performing Organization Address City/[facility]/ZIP Code Phon e Number [facility] [address] [place] [address] documented in this encounter Visit Diagnoses Not on filedocumented in this encounter Additional Health Concerns Assessment Noted Time PHQ-9 Depression Total Score: 16 02/11/2021 12:00 AM C DT documented as of this encounter Care Teams Auto Research Engineer Relationship Specialty Start Date End Date Elsewhere, Pcp PCP - General Internal Medicine 12/25/21 documented as of this encounter
--- OUTSIDE RECORDS SUMMARY | 2022-07-06 15:34 | XMS_ITS | Encounter Summary ---
:1965 Author Organization [facility] Address [address] [place] [address] Care Team Providers Name Role Phone Elsewhere, Pcp Primary Care Provider Unavailable Reason for Visit Reason Comments OPAT Lab request Encounter Details Date Type Department Care Team Description 01/26/2022 Clinical Communication Section of Ruth Eddy (Lab request) Infectious T, R.N. Diseases in [address] [place] [phone] [place] [address] [place], [place] (Work) [phone] Social History Tobacco Use Types Packs/Day Years [...] you attend restoration or Patient refused 2021 confucianism services? Do [...] or the highest technical, or vocational p jhon degree you have received? Sex Assigned at Date Recorded Female 03/01/2019 10:12 AM CDT documented as of this encounter Miscellaneous Notes Telephone Encounter - Ruth Eddy RBrittonN. - 01/26/2022 4:13 PM CST [facility], phone: [phone] was called and message left to fax us lab results. Our fax and phone number was given. Y GO ROUND OPERATOR documented in this encounter Plan of Treatment Not on filedocumented as of this encounter Visit Diagnoses Not on filedocumented in this encounter Additional Health Concerns Assessment Noted Time PHQ-9 Depression Total Score: 16 02/11/2021 12:00 AM C DT documented as of this encounter Care Teams Web Designer Developer Relationship Specialty Start Date End Date Elsewhere, Pcp PCP - General Internal Medicine 12/25/21 documented as of this encounter
--- OUTSIDE RECORDS SUMMARY | 2022-07-06 15:34 | XMS_ITS | Encounter Summary ---
:1965 Author Organization [facility] Address [address] [place] [address] Care Team Providers Name Role Phone Elsewhere, Pcp Primary Care Provider Unavailable Reason for Visit Reason Comments OPAT Care Coordination Encounter Details Date Type Department Care Team Description 01/22/2022 Clinical Communication Section of Steven Dennis (Care Infectious Diseases E, R.N. Coordination) in [address] [place] [phone] [place], [place] [phone] (Work) [phone] Social History Tobacco Use Types Packs/Day Years [...] you attend restorationism or Patient refused 2021 temple services? Do [...] IR. ??Is she able to come to [place] for IR PICC placement? ??If not, we'll [...] I spoke to Carolynn, the nurse at [facility]. She spoke to their wound care nurse and she would liketo try some different dressings first before they move the PICC to the chest. They cannot place a PICC in the chest in [place], so if needed, the patient would have to come to [place]. The patientwill be there at 2 pm today. She will call back with the patient so we all can come up with a plan together. Addendum: We missed a call from Carolynn, infusion nurse at [facility]. Her message stated that PICCsite care was performed and the site looks better. The wound care team has a plan and is hoping thatblessinge can keep her current PICC. IC WORKS SUPERVISOR Telephone Encounter - Tejal Rudolph R.N. - 01/22/2022 4:46 PM PUBLIC WORKS SUPERVISOR I have been unable to reach the patient, but I notified nurse Carolynn at [facility] of Dr. Boris Chaidez's recommendation, that they could try moving the line to the other arm and use a midline but avoid a chest PICC. I faxed the order for midline placement. Nurse Carolynn at [place] questioned whether the midline could be moved to the other (left) arm, because patient wears a sling on that arm. IC WORKS SUPERVISOR Telephone Encounter - Steven Dennis R.N. - [...] She did get a special dressing from [facility] to use, but it doesn't seem to be helping. Dressing was changed at 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
--- OUTSIDE RECORDS SUMMARY | 2022-07-06 15:34 | XMS_ITS | Encounter Summary ---
:[address] [facility] Address [address] [place] [address] Care Team Providers Name Role Phone Elsewhere, Pcp Primary Care Provider Unavailable Encounter Details Date Type Department Care Team Description 01/08/2022 Orders Only Pharmacy Prior Auth RO Elsewhere, Pcp [phone] Social History Tobacco Use Types Packs/Day Years [...] you attend bahai or Patient refused 2021 hindu services? Do [...] documented as of this encounter Care Teams Punch Press Feeder Relationship Specialty Start Date End Date Elsewhere, Pcp PCP - General Internal Medicine 12/25/21 documented as of this encounter
--- OUTSIDE RECORDS SUMMARY | 2022-07-06 15:34 | XMS_ITS | Encounter Summary ---
:1965 Author Organization [facility] Address [address] [place] [address] Care Team Providers Name Role Phone Elsewhere, Pcp Primary Care Provider Unavailable Encounter Details Date Type Department Care Team Description 01/01/2022 Episode Changes Section of Infectious Lin Tadeo Diseases in [place], (Work ) [place] [address] [place] [address] Social History Tobacco Use Types Packs/Day [...] you attend methodist or Patient refused 2021 adventism services? Do [...] as of this encounter Care Teams Senior Linux Unix Administrator Relationship Specialty Start Date End Date Elsewhere, Pcp PCP - General Internal Medicine 12/25/21 documented as of this encounter
--- OUTSIDE RECORDS SUMMARY | 2022-07-06 15:34 | XMS_ITS | Encounter Summary ---
:1965 Author Organization [facility] Address [address] [place] [address] Care Team Providers Name Role Phone Elsewhere, Pcp Primary Care Provider Unavailable Encounter Details Date Type Department Care Team Description 01/05/2022 Clinical Communication Section of Infectious Ed Laly Diseases in [place], , MEMORIAL ADVISER, C.N.P. [place] 200 [facility] 200 [place] [phone] Social History Tobacco Use Types Packs/Day Years [...] you attend gnosticism or Patient refused 2021 congregation services? Do [...] Ward APRN, C.N.P. - 01/05/2022 2:17 PM FOOD AND BEVERAGE ATTENDANT Left shoulder synovial fluid culture from 12/30 has been reported for growth of oxacillin sensitive Staphylococcus epidermidis. No change recommended to the patient's current regimen of ceftriaxone. AND BEVERAGE ATTENDANT Telephone Encounter - Laly Ward APRN, C.N.P. - 01/05/2022 2:17 PM FOOD AND BEVERAGE ATTENDANT ----- Message from Su Greene, Pharm.D., R.Ph. sent at 01/05/2022 9:51 AM FOOD AND BEVERAGE ATTENDANT ----- Patient with shoulder infection (with previous [...] changes please message RST TIERNEYD [facility] PHARMACIST pool. If urgent, page [phone] M-F 9am-5 pm AND BEVERAGE ATTENDANT documented in this encounter Plan of Treatment Not on filedocumented as of this encounter Visit Diagnoses Not on filedocumented in this encounter Additional Health Concerns Assessment Noted Time PHQ-9 Depression Total Score: 16 02/11/2021 12:00 AM C DT documented as of this encounter Care Teams Accounts Receivable Administrator Relationship Specialty Start Date End Date Elsewhere, Pcp PCP - General Internal Medicine 12/25/21 documented as of this encounter
--- OUTSIDE RECORDS SUMMARY | 2022-07-06 15:34 | XMS_ITS | Encounter Summary ---
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 [address] [place] [phone] Referral ID Status Reason Start Date Expiration Date Visits V isits Requested Authorized [id number] Authorized 01/01/2022 01/01/2023 1 1 FEEDER Encounter Details Date Type Department Care Team Description 12/30/2021 - Hospital Encounter [facility] Kulwant Polk M.D. [address] [place] [phone] Pain Shoulder Left (Primary Dx); 01/01/2022 Hospital, Taoist Kennedi Vera MPAS, P.A.-C. [address] [place] [phone] Shoulder Joint Disorder Left; Afshin Blasenberg Direct Inf ection Of Left Shoulder In Infectious And Parasitic Diseases Classified Elsewhere (HCC) Building, Eighth Floor [address] [place] [phone] Social History Tobacco Use Types Packs/Day Years [...] attend oriental orthodox or Patient refused 2021 faith services? Do [...] Comments Blood Pressure 141/91 01/01/2022 4:26 PM POT FEEDER Pulse 95 01/01/2022 4:26 PM POT FEEDER Temperature 36.8 ??C (98.2 ??F) 01/01/2022 4:26 PM POT FEEDER Respiratory Rate 18 01/01/2022 4:26 PM POT FEEDER Oxygen Saturation 93% 01/01/2022 4:26 PM POT FEEDER Inhaled Oxygen Concentration - - Weight 69.9 kg (154 lb 1.6 12/30/2021 11:22 AM oz) POT FEEDER Height 150.5 cm (4' 11.25) 12/30/2021 11:22 AM no shoe s/boots POT FEEDER Body Mass Index 30.86 12/30/2021 11:22 AM POT FEEDER documented in this encounter Discharge Summaries Dario Carrera M.D. - 01/01/2022 8:50 AM CST DISCHARGE SUMMARY BRIEF OVERVIEW Hospital: [facility] Discharge Provider: Cyrus Polk M.D. Primary Team: [...] RST ROEI OR DISCHARGE DISPOSITION Home-Health Care [facility] [place] [facility] [6] ACTIVE ISSUES REQUIRING FOLLOW UP Active [...] were provided to the patient and caregiver(s). FEEDER documented in this encounter Discharge Instructions AttachmentsThe following attachments cannot be sent through Care Everywhere. Continuous Nerve-Block Infusion System: Often called a ???pain pump?? (Ukrainian) documented in this encounter Medications at Time [...] THC multivit-min/iron/folic/ Take 1 tablet by 0 [id number] (HAIR, SKIN AND mouth daily. NAILS ADVANCED [...] attempt to follow up tomorrow by phone. FEEDER Brendon Mckeon M.D. - 01/01/2022 5:28 PM [...] signs of local anesthetic systemic toxicity, occur. FEEDER Fatemeh Pena R.N. - 01/01/2022 5:28 PM [...] when she got up for the day. FEEDER Ruth Gonzalez P.T., D.P.T. - 01/01/2022 4:29 [...] mask during therapy session: no Outcome Measures [facility] Inpatient Short Form: -[facility] Basic Mobility (V.2) How much [...] 3-5 steps with a railing?: A Little -LOCATED [facility]IN [facility] Basic Mobility (V.2) Raw Score: 23 -[facility]ATED [facility]IN [facility] Basic Mobility (V.2) Standardized Score: 50.88 Interpretation: Clinicians answer the -[facility] Inpatient Short Form based on [...] quad cane since it is not available [facility]. Barriers to Discharge Home: Other [...] (min): 23 min Ruth Gonzalez P.T., D.P.T. FEEDER Elvira Duncan R.N. - 01/01/2022 3:21 PM [...] educational pamphlet Continuous Nerve-Block Infusion System ( [id number]).?? Discussed at home removal of nervecatheter, signs [...] our ownership and financial relationship of the [facility]home health & hospice agencies. Reviewed insurance coverage, [...] Selected Services Address Phone Fax Patient Preferred [facility] Infusion and IV Therapy [phone], [place] [id number] -- [...] draws will be managed by Outpatient Facility: [facility] Address: [address] [place], [place] Contact: Princess They will provide IV [...] continue to follow. Joe Ervin, M.S.WBritton 01/01/2022 FEEDER Gucci Salvador M.D. - 01/01/2022 10:45 AM [...] questions answered to patient's satisfaction. Please page [phone] for questions. 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 [phone] FEEDER Pamela Crawford Pharm.D., R.Ph. - 01/01/2022 10:14 [...] on post-operative opioids Pamela Crawford Pharm.D., R.Ph. [phone] FEEDER Jose Guadalupe Nixon M.D. - 01/01/2022 8:31 AM CST Infectious Diseases Orthopedic Surgery [facility] [place]ing Service Progress Note SUBJECTIVE -No acute [...] Date/Time Bacteria / Mandi Culture, Blood #2 [[id number]] Collected: 12/31/21 1604 Lab Status: In process Specimen: Blood, Peripheral Draw Updated: 12/31/21 1651 Narrative: Received Bactec aerobic and Bactec anaerobic bottles Specimen Information: Specimen ID: [id number] Specimen Source: Blood, Peripheral Draw Specimen Comment: Specimen Source Site: Blood Specimen Collection Start Date: 12/31/2021 4:05 PM Specimen Received Date: 12/31/2021 4:51 PM Specimen ID: [id number] Specimen Source: Blood, Peripheral Draw Specimen Comment: Specimen Source Site: Blood Specimen Collection Start Date: 12/31/2021 4:05 PM Specimen Received Date: 12/31/2021 4:51 PM Specimen ID: [id number] Specimen Source: Blood, Peripheral Draw Specimen Comment: Specimen Source Site: Blood Specimen Collection Start Date: 12/31/2021 4:04 PM Specimen Received Date: 12/31/2021 4:51 PM Bacteria / Mandi Culture, Blood #1 [[id number]] Collected: 12/31/21 1552 Lab Status: In process Specimen: Blood, Peripheral Draw Updated: 12/31/21 1651 Narrative: Received Bactec aerobic and Bactec anaerobic bottles Specimen Information: Specimen ID: [id number] Specimen Source: Blood, Peripheral Draw Specimen Comment: Specimen Source Site: Blood Specimen Collection Start Date: 12/31/2021 3:52 PM Specimen Received Date: 12/31/2021 4:50 PM Specimen ID: [id number] Specimen Source: Blood, Peripheral Draw Specimen Comment: Specimen Source Site: Blood Specimen Collection Start Date: 12/31/2021 3:53 PM Specimen Received Date: 12/31/2021 4:50 PM Specimen ID: [id number] Specimen Source: Blood, Peripheral Draw Specimen Comment: Specimen Source Site: Blood Specimen Collection Start Date: 12/31/2021 3:53 PM Specimen Received Date: 12/31/2021 4:50 PM Bacteria Cult, Aerobe / Anaerobe+Susc [[id number]] Collected: 12/30/21 1411 Lab Status: Preliminary result Specimen: Shoulder, Left Updated: 12/31/21 1601 Bacteria Cult, Aerobe/Anaerobe+Susc No growth to date. Narrative: Bacterial Culture: Placed in Bactec aerobic and Bactec anaerobic bottles Bacteria Cult, Aerobe / Anaerobe+Susc [[id number]] Collected: 12/30/21 1405 Lab Status: Preliminary result Specimen: Synovial Fluid, Left Shoulder Updated: 12/31/21 1601 Bacteria Cult, Aerobe/Anaerobe+Susc No growth to date. Narrative: Bacterial Culture: Placed in Bactec aerobic and Bactec anaerobic bottles Bacteria Cult, Aerobe / Anaerobe+Susc [[id number]] Collected: 12/30/21 1404 Lab Status: Preliminary result Specimen: Shoulder, Left Updated: 12/31/21 1601 Bacteria Cult, Aerobe/Anaerobe+Susc No growth to date. Narrative: Bacterial Culture: Placed in Bactec aerobic and Bactec anaerobic bottles Bacteria Cult, Aerobe / Anaerobe+Susc [[id number]] Collected: 12/30/21 1403 Lab Status: Preliminary result Specimen: Shoulder, Left Updated: 12/31/21 1601 Bacteria Cult, Aerobe/Anaerobe+Susc No growth to date. Narrative: Bacterial Culture: Placed in Bactec aerobic and Bactec anaerobic bottles Bacteria Cult, Aerobe / Anaerobe+Susc [[id number]] Collected: 12/30/21 1403 Lab Status: Preliminary result Specimen: Shoulder, Left Updated: 12/31/21 1601 Bacteria Cult, Aerobe/Anaerobe+Susc No growth to date. Narrative: Bacterial Culture: Placed in Bactec aerobic and Bactec anaerobic bottles SARS Coronavirus 2, Molecular Detection, PCR, Varies Asymptomatic [[id number]] Collected: 12/29/21 1111 Lab Status: Final result [...] ----ADDITIONAL INFORMATION---- This RT-PCR test using the [employer] Swap SARS-CoV-2 Assay ( [employer].) performed on the Love [employer] Swap Two Module System has received Emergency Use Authorization (EUA) by the U.S. Food and Drug Administration, and is modified from the picking table worker's instructions with a bridging study. Performance characteristics were verified by [facility] in a manner consistent with CLIA requirements. Visit the CDC website: https://www.cdc.gov/coronavirus/ for the most recent guidelines on Coronavirus testing. Fact Sheet for Healthcare Providers: https://www.fda.gov/media/395754/download Fact Sheet for Patients: https://www.fda.gov/media/499720/download ASSESSMENT / PLAN 56-year-old female with a [...] is consistent with aspiration results from original [facility] evaluation which is likely solar sales representative of the culprit organism causing [...] of Infectious Diseases OPAT monitoring program at [phone] after dismissal. Primary service to follow labs while patient is hospitalized. [place] pharmacist to adjust dosing after dismissal 4. [...] Please page Ortho C-ID service pager at [phone] with any questions. ?? Jose Guadalupe Nixon [...] Overall Comments Patient to dismiss with OnQ. FEEDER Dario Carrera M.D. - 01/01/2022 7:00 AM [...] - Date/Time Bacteria Cult, Aerobe / Anaerobe+Susc [[id number]] Collected: 12/30/21 1411 Lab Status: In process Specimen: Shoulder, Left Updated: 12/30/21 1540 Narrative: Bacterial Culture: Placed in Bactec aerobic and Bactec anaerobic bottles Bacteria Cult, Aerobe / Anaerobe+Susc [[id number]] Collected: 12/30/21 1405 Lab Status: In process Specimen: Synovial Fluid, Left Shoulder Updated: 12/30/21 1519 Narrative: Bacterial Culture: Placed in Bactec aerobic and Bactec anaerobic bottles Bacteria Cult, Aerobe / Anaerobe+Susc [[id number]] Collected: 12/30/21 1404 Lab Status: In process Specimen: Shoulder, Left Updated: 12/30/21 1536 Narrative: Bacterial Culture: Placed in Bactec aerobic and Bactec anaerobic bottles Bacteria Cult, Aerobe / Anaerobe+Susc [[id number]] Collected: 12/30/21 1403 Lab Status: In process Specimen: Shoulder, Left Updated: 12/30/21 1533 Narrative: Bacterial Culture: Placed in Bactec aerobic and Bactec anaerobic bottles Bacteria Cult, Aerobe / Anaerobe+Susc [[id number]] Collected: 12/30/21 1403 Lab Status: In process Specimen: Shoulder, Left Updated: 12/30/21 1538 Narrative: Bacterial Culture: Placed in Bactec aerobic and Bactec anaerobic bottles SARS Coronavirus 2, Molecular Detection, PCR, Varies Asymptomatic [[id number]] Collected: 12/29/21 1111 Lab Status: Final result [...] ----ADDITIONAL INFORMATION---- This RT-PCR test using the Love Home Swap SARS-CoV-2 Assay ( [employer]ORE MED[employer].) performed on the Love Home Swap Two Module System has received Emergency Use Authorization (EUA) by the U.S. Food and Drug Administration, and is modified from the picking table worker's instructions with a bridging study. Performance characteristics were verified by [facility] in a manner consistent with CLIA requirements. Visit the CDC website: https://www.cdc.gov/coronavirus/ for the most recent guidelines on Coronavirus testing. Fact Sheet for Healthcare Providers: https://www.fda.gov/media/324406/download Fact Sheet for Patients: https://www.fda.gov/media/776610/download ASSESSMENT / PLAN IMPRESSION/REPORT/PLAN #1 Status post [...] 6 am, please page [facility] [phone] Trey Phan R.N. - 12/31/2021 7:34 AM [...] - Date/Time Bacteria Cult, Aerobe / Anaerobe+Susc [[id number]] Collected: 12/30/21 1411 Lab Status: In process Specimen: Shoulder, Left Updated: 12/30/21 1540 Narrative: Bacterial Culture: Placed in Bactec aerobic and Bactec anaerobic bottles Bacteria Cult, Aerobe / Anaerobe+Susc [[id number]] Collected: 12/30/21 1405 Lab Status: In process Specimen: Synovial Fluid, Left Shoulder Updated: 12/30/21 1519 Narrative: Bacterial Culture: Placed in Bactec aerobic and Bactec anaerobic bottles Bacteria Cult, Aerobe / Anaerobe+Susc [[id number]] Collected: 12/30/21 1404 Lab Status: In process Specimen: Shoulder, Left Updated: 12/30/21 1536 Narrative: Bacterial Culture: Placed in Bactec aerobic and Bactec anaerobic bottles Bacteria Cult, Aerobe / Anaerobe+Susc [[id number]] Collected: 12/30/21 1403 Lab Status: In process Specimen: Shoulder, Left Updated: 12/30/21 1533 Narrative: Bacterial Culture: Placed in Bactec aerobic and Bactec anaerobic bottles Bacteria Cult, Aerobe / Anaerobe+Susc [[id number]] Collected: 12/30/21 1403 Lab Status: In process Specimen: Shoulder, Left Updated: 12/30/21 1538 Narrative: Bacterial Culture: Placed in Bactec aerobic and Bactec anaerobic bottles SARS Coronavirus 2, Molecular Detection, PCR, Varies Asymptomatic [[id number]] Collected: 12/29/21 1111 Lab Status: Final result [...] ----ADDITIONAL INFORMATION---- This RT-PCR test using the Love Home Swap SARS-CoV-2 Assay ( RORE MEDIA.) performed on the Love Home Swap Two Module System has received Emergency Use Authorization (EUA) by the U.S. Food and Drug Administration, and is modified from the picking table worker's instructions with a bridging study. Performance characteristics were verified by [facility] in a manner consistent with CLIA requirements. Visit the CDC website: https://www.cdc.gov/coronavirus/ for the most recent guidelines on Coronavirus testing. Fact Sheet for Healthcare Providers: https://www.fda.gov/media/351037/download Fact Sheet for Patients: https://www.fda.gov/media/790782/download ASSESSMENT / PLAN IMPRESSION/REPORT/PLAN #1 Status post [...] Jey Matos DO Shoulder & Elbow Fellow [facility] Orthopaedic Surgery For any questions or concerns from 6 am until 6 pm, please page Jam service For urgent matters from 6 pm until 6 am, please page Ortho House at [facility] [phone] FEEDER Trey Rdz R.N. - 12/30/2021 4:39 PM [...] Care Plan:continue current management per plan/IPS protocol FEEDER Feli Viveros Pharm.D., R.Ph. - 12/30/2021 11:33 [...] at home. She is registered with the [facility] for medical cannabis and she [place] her meds [place] dispensary. She was told to leave her [...] Take 150 mg by mouth every morning. lypresjadk-nqkcfzyuocuxl-vvbe (ESGIC) 50-325-40 mg per tablet Past Week [...] by mouth 2 (two) times a day. FEEDER documented in this encounter Procedure Notes Soraida [...] to release the adhesive from the skin. http://[employer]/products/secureportiv FEEDER documented in this encounter Consult Notes Ruth [...] (HCC) ??? Nicotine Dependence Unspecified ??? Other Halfway Current Drug Therapy ??? 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 ABDOMINOPLASTY ??? ARTHROPLASTY - RESECTION SHOULDER Left 12/30/2021 Procedure: ARTHROPLASTY RESECTION SHOULDER.; Surgeon: Cyrus Polk M.D.; Location: [facility] OR ??? BACK SURGERY 1998 lumbar [...] Right Lives With: Alone Receives Help From: hangar attendant, Family, Friend(s) ADL Assistance: Required assistance ADL Assistance Comments: Gets help from [employer] for her bath/shower and for her meals IADL/Homemaking Assistance: Required assistance IADL/Homemaking Assistance Comments: Gets help for housecleaning Driving: Independent Occupational Role: On disability Prior Mobility/Functional Transfers Level of [place]: Modified independent Gait Devices/Wheelchair Used: Cane Gait [...] session with call light in reach and [employer] present, all needs metand questions answered. Contact [...] 3-5 steps with a railing?: A Lot -[facility]IN [facility] Basic Mobility (V.2) Raw Score: 17 -LOCATED WITHIN [facility] Basic Mobility (V.2) Standardized Score: 39.67 Interpretation: Clinicians answer the -[facility] Inpatient Short Form based on [...] (min): 36 min Ruth Gonzalez P.T., D.P.T. FEEDER Thao You L.I.C.SBrenton, M.S.W. - 12/31/2021 2:04 PM CSTAssociated Order(s): IP CONSULT TO CARE MANAGEMENT; IP CONSULT TO CARE MANAGEMENT; IP CONSULT TO CARE MANAGEMENT Psychosocial Assessment SUBJECTIVE DEMOGRAPHIC INFORMATION Person(s) present during interview: Patient Primary care clinic and provider: [facility] Primary Language: Ukrainian Legal Information: Legal decision maker for self [...] / Household Status: Patient resides alone in [place], [place]. She lives in a two bedroom apartment. Patient has four adultchildren two of whom live in [place]. Patient son Rafal lives next door to patient. Support Systems: Family members, Friends/neighbors. We have not received permission to contact them. Primary caregiver: Self Accompanied by/Relationship: None Support System: Family members, Friends/neighbors Spirituality / Yazdanism / Culture: , None History: No Education: High school Employment: Disabled Psychosocial Risk Factors impacting the patient: Resides alone, mental health issues Abuse, Neglect, Maltreatment, Trauma: Current: None reported. Past: None reported. ENVIRONMENTAL SUPPORTS Current Living Situation: Private residence Patient's Home Environment: Resides in a two bedroom apartment on the [address] [facility] Care Facility Name (if applicable): NA [...] Behavior: Oriented Communication: Reads, writes and speaks Ukrainian It is anticipated that the patient will need assistance with .Dressing,bathing, meal prep, housekeeping, shopping ASSISTIVE DEVICES Patient has the following equipment: Eyeglasses, Dentures upper, Dentures lower, cane, walker Patient anticipates potentially needing the following additional equipment: None Transportation needs: Independent to drive, support from family and friends SERVICES REQUESTED Infusion therapy [employer]TAIN Formal and Informal Resources: Patient receives home health aid services three times per week and fpc visit one time every two weeks through [facility]. FINANCES/INSURANCE Primary insurance: MEDICARE A AND B Secondary insurance: MEDICA ADVANCE DIRECTIVES Advance Directive: Patient does not have advance directive, does not want information DISCHARGE PLANNING Patient is planning on returning home upon her discharge. She currently receives home health aid services and fpc through [facility]. Patient also has support from a [...] good support group consisting of family, friends andalda health services through [facility]. INTERVENTIONS ?? Psychosocial assessment ?? Rapport building ?? Education on coping with chronic pain. PLAN ?? Social work will continue to follow for discharge planning and support. ?? Social work did speak with Pat at [facility] to confirm home health services. ?? Social work will work on infusion therapy referrals as well as home health/outpatient picc site care and labs. Anticipated barriers to the transition of care/plan: None Joe Ervin, M.S.W. 12/31/2021 FEEDER Jose Guadalupe Nixon M.D. - 12/31/2021 7:31 AM CSTAssociated Order(s): IP CONSULT TO INFECTIOUS DISEASES Infectious Diseases Orthopedic Surgery [facility] Consulting Service Consult Note SUBJECTIVE REASON FOR [...] resistance on OSH AST. She presented to [facility] (unclear if on antibiotics) for further evaluation given persistent L shoulder pain 08/2021 prompting aspiration (09/25/21) which revealed elevated TNC (37808) with 81% PMNs with cultures positive for1 [...] debridement. The patient was subsequently admitted to [facility] for further management. Intraoperative cultures and synovial [...] - Date/Time Bacteria Cult, Aerobe / Anaerobe+Susc [[id number]] Collected: 12/30/21 1411 Lab Status: In process Specimen: Shoulder, Left Updated: 12/30/21 1540 Narrative: Bacterial Culture: Placed in Bactec aerobic and Bactec anaerobic bottles Bacteria Cult, Aerobe / Anaerobe+Susc [[id number]] Collected: 12/30/21 1405 Lab Status: In process Specimen: Synovial Fluid, Left Shoulder Updated: 12/30/21 1519 Narrative: Bacterial Culture: Placed in Bactec aerobic and Bactec anaerobic bottles Bacteria Cult, Aerobe / Anaerobe+Susc [[id number]] Collected: 12/30/21 1404 Lab Status: In process Specimen: Shoulder, Left Updated: 12/30/21 1536 Narrative: Bacterial Culture: Placed in Bactec aerobic and Bactec anaerobic bottles Bacteria Cult, Aerobe / Anaerobe+Susc [[id number]] Collected: 12/30/21 1403 Lab Status: In process Specimen: Shoulder, Left Updated: 12/30/21 1533 Narrative: Bacterial Culture: Placed in Bactec aerobic and Bactec anaerobic bottles Bacteria Cult, Aerobe / Anaerobe+Susc [[id number]] Collected: 12/30/21 1403 Lab Status: In process Specimen: Shoulder, Left Updated: 12/30/21 1538 Narrative: Bacterial Culture: Placed in Bactec aerobic and Bactec anaerobic bottles SARS Coronavirus 2, Molecular Detection, PCR, Varies Asymptomatic [[id number]] Collected: 12/29/21 1111 Lab Status: Final result [...] ----ADDITIONAL INFORMATION---- This RT-PCR test using the Love [employer] Swap SARS-CoV-2 Assay ( [employer]ORE [employer].) performed on the Love Home Swap Two Module System has received Emergency Use Authorization (EUA) by the U.S. Food and Drug Administration, and is modified from the picking table worker's instructions with a bridging study. Performance characteristics were verified by [facility] in a manner consistent with CLIA requirements. Visit the CDC website: https://www.cdc.gov/coronavirus/ for the most recent guidelines on Coronavirus testing. Fact Sheet for Healthcare Providers: https://www.fda.gov/media/719966/download Fact Sheet for Patients: https://www.fda.gov/media/466840/download ASSESSMENT / PLAN 56-year-old female with a [...] is consistent with aspiration results from original [facility] evaluation which is likely solar sales representative of the culprit organism causing [...] will follow along closely. Please page the [facility]-ID service pager at [phone] with questions. Thank you for the consultation. Jose Guadalupe Nixon M.D. FEEDER Associated attestation - Gucci Salvador M.D. - 12/31/2021 6:07 PM POT FEEDER DEMOGRAPHIC INFORMATION Clinic Number:[id number] Patient Name: Angie [...] 6 week duration through February 06, 2022. uGcci Salvador M.D. documented in this encounter Nursing Notes Fanny Sifuentes R.N. - 01/01/2022 5:17 PM CST Patient discharge criteria met. Pain under control with oral pain medications and interscalene block. VSS,afebrile. Tolerated po intake and no c/o nausea. Voiding without difficulty. Patient take home prescriptions: Ceftriaxone, .9NS flush prescriptions, and Oxycodone. Oxycodone filled here at [facility] pharmacy. Patient going home with an interscalene block OnQ pump. Transportation provided by her son. FEEDER Fanny Sifuentes R.N. - 12/31/2021 11:00 PM [...] Nasal mucous membranes remain intact Outcome: Progressing FEEDER Ezequiel Hernandez R.N. - 12/30/2021 10:27 PM [...] staff assistance to bathroom. Navin Hernandez R.N. FEEDER documented in this encounter OR Notes Op Note - Cyrus Polk M.D. - 12/30/2021 2:50 PM CST STAFF: Cyrus Polk M.D. RESIDENT: Dario Carrera M.D. PRE-OPERATIVE DIAGNOSIS Left infected reverse arthroplasty. POST-OPERATIVE DIAGNOSIS Left infected reverse arthroplasty. A medical research assistant was necessary for one or more [...] Cyrus Polk M.D. CT CT Job ID: [id number] FEEDER documented in this encounter Miscellaneous Notes Hospital [...] and pain is controlled on oral medications. FEEDER documented in this encounter Plan of Treatment [...] Resul ts for this INSERTED CENTRAL PM POT FEEDER procedure a re in CATHETER (PICC) the results section. REMOTE OXIMETRY Routine 12/31/2021 5:23 MONITORING CONT. PM POT FEEDER REMOTE OXIMETRY Routine 12/31/2021 5:23 MONITORING CONT. PM POT FEEDER BACTERIA / MANDI Routine 12/31/2021 4:04 Result s for this CULTURE, BLOOD PM POT FEEDER procedure are in the results section. BACTERIA / MANDI Routine 12/31/2021 3:52 Result s for this CULTURE, BLOOD PM POT FEEDER procedure are in the results section. ADULT OXYGEN THERAPY Routine 12/31/2021 8:01 AM POT FEEDER CBC WITH Routine 12/31/2021 4:25 Results for this DIFFERENTIAL, B AM POT FEEDER procedure ar e in the results section. BASIC METABOLIC Routine 12/31/2021 4:25 Results f or this PANEL, S/P AM POT FEEDER procedure are i n the results section. ADULT OXYGEN THERAPY Routine 12/30/2021 8:01 PM POT FEEDER ADULT OXYGEN THERAPY Routine 12/30/2021 5:12 PM POT FEEDER ADULT OXYGEN THERAPY Routine 12/30/2021 5:12 PM POT FEEDER ADULT OXYGEN THERAPY Routine 12/30/2021 3:46 PM POT FEEDER ADULT OXYGEN THERAPY Routine 12/30/2021 3:46 PM POT FEEDER DX SHOULDER LEFT 1 RAD - Timed (for 12/30/2021 3:41 Re sults for this VIEW specific PM POT FEEDER procedure are i n dates/times) the results section. SURGICAL PATHOLOGY, Routine 12/30/2021 2:15 Shoulder Joint Res ults for this FROZEN LAB PM POT FEEDER Disorder Left procedure are in the results section. BACTERIA CULT, Routine 12/30/2021 2:11 Results fo r this AEROBE/ANAEROBE+SUSC PM POT FEEDER procedu re are in the results section. BACTERIA CULT, Routine 12/30/2021 2:05 Results fo r this AEROBE/ANAEROBE+SUSC PM POT FEEDER procedu re are in the results section. BACTERIA CULT, Routine 12/30/2021 2:04 Results fo r this AEROBE/ANAEROBE+SUSC PM POT FEEDER procedu re are in the results section. BACTERIA CULT, Routine 12/30/2021 2:03 Results fo r this AEROBE/ANAEROBE+SUSC PM POT FEEDER procedu re are in the results section. BACTERIA CULT, Routine 12/30/2021 2:03 Results fo r this AEROBE/ANAEROBE+SUSC PM POT FEEDER procedu re are in the results section. ARTHROPLASTY 12/30/2021 12:34 Shoulder Joint RESECTION SHOULDER PM POT FEEDER Disorder Left documented in this encounter Results Place peripherally inserted central catheter (PICC) (01/01/2022 12:11 PM POT FEEDER) Narrative MMODAL - 01/01/2022 12:11 PM POT FEEDER Soraida Dick R.N. ? 01/01/2022 12:13 PM [...] to release the adhesive from the skin. http://[employer]/products/secur eportiv Dario Carrera M.D. PROCEDURE/MINOR SURGICAL ORD ERABLES Performing Organization Address City/State/ZIP Code Phon e Number MMODAL MMODAL NA Bacteria / Mandi Culture, Blood #2 (12/31/2021 4:04 PM POT FEEDER) [facility] Method Time Signature Bacteria/Valerie No growth 01/05/2022 DTL da Culture, after 5 5:02 PM POT FEEDER Blood days of incubation. Specimen (Source) Anatomical Collection Method Collection Time Re ceived Time Location / / Volume Laterality Blood (Blood, 12/31/2021 4:04 12/31/2021 4:51 Peripheral Draw) PM POT FEEDER PM POT FEEDER Comment: Specimen Source Site: Blood Narrative [facility] [place] - 01/05/2022 5:02 PM POT FEEDER Received Bactec aerobic and Bactec anaer obic bottles Dario Carrera M.D. LAB MICROBIOLOGY - GENERAL O MARY Performing Organization Address City/State/ZIP Code Phon e Number [facility] - [address] Bacteria / Mandi Culture, Blood #1 (12/31/2021 3:52 PM POT FEEDER) [facility] Method Time Signature Bacteria/Valerie No growth 01/05/2022 DTL da Culture, after 5 5:02 PM POT FEEDER Blood days of incubation. Specimen (Source) Anatomical Collection Method Collection Time Re ceived Time Location / / Volume Laterality Blood (Blood, 12/31/2021 3:52 12/31/2021 4:50 Peripheral Draw) PM POT FEEDER PM POT FEEDER Comment: Specimen Source Site: Blood Narrative [facility] [place] - 01/05/2022 5:02 PM POT FEEDER Received Bactec aerobic and Bactec anaer obic bottles Dario Carrera M.D. LAB MICROBIOLOGY - GENERAL O PATERASARAH Performing Organization Address City/[facility]/ZIP Code Phon e Number [facility] - [address] [place], [place] [address] (ABNORMAL) CBC with Differential, Blood (12/31/2021 4:25 AM POT FEEDER) [facility] Method Time Signature Hemoglobin 8.9 (L) 11.6 - 12/31/2021 DTL 15.0 g/dL 5:15 AM POT FEEDER Hematocrit 27.3 (L) 35.5 - 12/31/2021 DTL 44.9 % 5:15 AM POT FEEDER Erythrocytes 3.26 (L) 3.92 - 12/31/2021 DTL 5.13 5:15 AM POT FEEDER x10(12)/L MCV 83.7 78.2 - 12/31/2021 DTL 97.9 fL 5:15 AM POT FEEDER RBC Distrib Width 19.6 (H) 12.2 - 12/31/2021 DTL 16.1 % 5:15 AM POT FEEDER Platelet Count 274 157 - 371 12/31/2021 DTL x10(9)/L 5:15 AM POT FEEDER Leukocytes 6.6 3.4 - 9.6 12/31/2021 DTL x10(9)/L 5:15 AM POT FEEDER Neutrophils 4.91 1.56 - 12/31/2021 DTL 6.45 5:15 AM POT FEEDER x10(9)/L Lymphocytes 1.10 0.95 - 12/31/2021 DTL 3.07 5:15 AM POT FEEDER x10(9)/L Monocytes 0.61 0.26 - 12/31/2021 DTL 0.81 5:15 AM POT FEEDER x10(9)/L Eosinophils <0.03 0.03 - 12/31/2021 DTL 0.48 5:15 AM POT FEEDER x10(9)/L Basophils <0.03 0.01 - 12/31/2021 DTL 0.08 5:15 AM POT FEEDER x10(9)/L Specimen Anatomical Collection Method Collection Time Receive d Time (Source) Location / / Volume Laterality Blood (Blood, 12/31/2021 4:25 AM 12/31/19 22 5:04 Venous) POT FEEDER AM POT FEEDER Dario Carrera M.D. LAB BLOOD ADD-ON Performing Organization Address City/State/ZIP Code Phon e Number [facility] - [address] [place], [place] [address] [facility] [place] [address] [facility] [address] [facility] (ABNORMAL) Basic Metabolic Panel (12/31/2021 4:25 AM POT FEEDER) P athologist Signature Potassium, S 4.4 3.6 - 5.2 12/31/2021 DTL mmol/L 5:35 AM POT FEEDER Sodium, S 134 (L) 135 - 145 12/31/2021 DTL mmol/L 5:35 AM POT FEEDER Chloride, S 103 98 - 107 12/31/2021 DTL mmol/L 5:35 AM POT FEEDER Bicarbonate, S 22 22 - 29 12/31/2021 DTL mmol/L 5:35 AM POT FEEDER Anion Gap 9 7 - 15 12/31/2021 DTL 5:35 AM POT FEEDER BUN (Blood 21 6 - 21 12/31/2021 DTL Urea mg/dL 5:35 AM POT FEEDER Nitrogen), S Creatinine, S 0.74 0.59 - 12/31/2021 DTL 1.04 mg/dL 5:35 AM POT FEEDER eGFR-Non 90 >=60 12/31/2021 DTL Black/ mL/min/BSA 5:35 AM POT FEEDER [place] Comment: ----ADDITIONAL INFORMATION---- Estimated GFR calculated using the 2009 CKD_EPI creatinine equation. eGFR-Black/ >90 >=60 mL/min/BSA 2021 5:35 AM POT FEEDER DTL Comment: ----ADDITIONAL INFORMATION---- Estimated GFR calculated using the 2009 CKD_EPI creatinine equation. Calcium, Total, S 8.7 8.6 - 10.0 mg/dL 12/31/2021 5:35 AM POT FEEDER DTL Glucose, S 138 70 - 140 mg/dL 12/31/2021 5:35 AM POT FEEDER D TL Specimen Anatomical Collection Method Collection Time Receive d Time (Source) Location / / Volume Laterality Blood (Blood, 12/31/2021 4:25 AM 12/31/19 5:18 Venous) POT FEEDER AM POT FEEDER Dario Carrera M.D. LAB BLOOD ADD-ON Performing Organization Address City/State/ZIP Code Phon e Number [facility] - [address] [place], [place] [address] [facility] [place] [address] [facility] [address] DX Shoulder Left 1 View (12/30/2021 3:41 PM POT FEEDER) Anatomical Region Laterality Modality Upper Extremity, Shoulder, Musculoskeletal RST LOS, Left Computed Radiography Musculoskeletal ARZ LOS, Muskuloskeletal FLA LOS Specimen (Source) Anatomical Collection Method Collection Time Re ceived Time Location / / Volume Laterality 12/30/2021 3:54 PM POT FEEDER Impressions 12/30/2021 3:59 PM POT FEEDER Postoperative changes of a left shoulder arthroplasty resection and placement of an antibiotic spacer. Negat lalo for postoperative purposes. Narrative 12/30/2021 3:59 PM POT FEEDER EXAM: ??DX SHOULDER LEFT 1 VIEW Procedure Note Timothy Resendiz M.D. - 12/30/2021Forma tting of this note might be different from the original. EXAM: DX SHOULDER LEFT 1 VIEW IMPRESSION: Postoperative changes of a left shoulder arthroplasty resection and placement of an antibiotic spacer. Negat lalo for postoperative purposes. Dario Carrera M.D. IMG DIAGNOSTIC IMAGING [facility] Surgical Pathology, Frozen Lab (12/30/2021 2:15 PM POT FEEDER) Component Value Ref Test Analysis Performed At [facility] Range Method Time Signature 01/01/2022 METH 8:22 AM POT FEEDER Participated in Kelly Howard 01/01/2022 METH the D.O.-Pathology 8:22 AM POT FEEDER Interpretation Resident Report Solomon Marcmu M.D. 01/01/2022 METH electronically 8:22 AM POT FEEDER signed by I verify that I have examined all relevant slides/materials for the specimen(s) and rendered or confirmed the diagnosis. Frozen A. ??Synovium, left shoulder, excision: ??Synovial tissue 01/01/2022 METH Intraoperative with 8:22 AM POT FEEDER Report acute inflammation (>5 neutrophils/high power field). Signed by Solomon Marcum M.D. 12/31/2021 8:17 AM Gross Description A. ??Received fresh labeled left shoulder is a 1.4 x 0.9 x 01/01/2022 METH 0.4 cm aggregate of red and campbell fibrous tissue, which is 8:22 AM POT FEEDER soft. ??All submitted for frozen and permanent sections. Grossed by Nikki Gallardo. Block Summary A Left shoulder 01/01/2022 METH A1 Left shoulder-frozen 8:22 AM POT FEEDER Interpretation FINAL DIAGNOSIS 01/01/2022 METH 8:22 AM POT FEEDER A. ??Synovium, left shoulder, excision: ??Synovial tissue with acute inflammation (>5 neutrophils/high power field). Specimen (Source) Anatomical Collection Method Collection Time Re ceived Time Location / / Volume Laterality Tissue (Shoulder, 12/30/2021 2:15 PM Left) POT FEEDER Narrative This result has an attachment that is no t available. Cyrus Polk M.D. LAB SURG PATH ORDERABLES Performing Organization Address [facility] Phon e Number [facility] - [address] [place], [place] [address] [facility] [place] [address] [facility] 200 [facility] Bacteria Cult, Aerobe / Anaerobe+Susc (12/30/2021 2:11 PM [facility]ER) [facility] Signature Bacteria Cult, No growth 01/13/2022 DTL Aerobe/Anaerob after 14 4:02 PM POT FEEDER e+Susc days of incubation. Specimen Anatomical Collection Method Collection Time Receive d Time (Source) Location / / Volume Laterality Shoulder, Left 12/30/2021 2:11 PM 022 3:38 POT FEEDER PM POT FEEDER Comment: Specimen Source Site: Tissue #4 Narrative [facility] [place] - 01/13/2022 4:02 PM POT FEEDER Bacterial Culture: Placed in Bactec aero bic and Bactec anaerobic bottles Cyrus Polk M.D. LAB MICROBIOLOGY - GENERAL O RDERABLES Performing Organization Address [facility] Phon e Number [facility] - [address] [place], [place] [address] [facility] [place] [address] [facility] [address] [facility] (ABNORMAL) Bacteria Cult, Aerobe / Anaerobe+Susc (12/30/2021 2:05 PM POT FEEDER) Component Value Ref Test Analysis Performed At [employer] Range Method Time Signature Bacteria STAPHYLOCOCCUS EPIDERMIDIS 01/11/2022 DT L Cult, Growth after 4 days 7:55 AM POT FEEDER Aerobe/Anaero (A) be+Susc Comment: Semi-Urgent Result. Semi-Urgent This is a semi-urgent result [facility] () [facility] Specimen Anatomical Collection Method Collection Time Receive d Time (Source) Location / / Volume Laterality Synovial Fluid, 12/30/2021 2:05 PM 2021 3:17 Left Shoulder POT FEEDER PM POT FEEDER Comment: Specimen Source Site: Fluid Narrative [facility] - [facility] - 01/11/2022 7:55 AM POT FEEDER Bacterial Culture: Placed in Bactec aero bic [...] City/State/ZIP Code Phon e Number [facility] - [facility] [address] [place], [place] [address] [place] [address] [facility] [address] Bacteria Cult, Aerobe / Anaerobe+Susc (12/30/2021 2:04 PM POT FEEDER) [facility] Method Time Signature Bacteria Cult, No growth 01/13/2022 [facility] Aerobe/Anaerob after 14 4:02 PM POT FEEDER e+Susc days of incubation. Specimen Anatomical Collection Method Collection Time Receive d Time (Source) Location / / Volume Laterality Shoulder, Left 12/30/2021 2:04 PM 022 3:34 POT FEEDER PM POT FEEDER Comment: Specimen Source Site: Tissue #3 Narrative [facility] [place] - 01/13/2022 4:02 PM POT FEEDER Bacterial Culture: Placed in Bactec aero bic and Bactec anaerobic bottles Cyrus Polk M.D. LAB MICROBIOLOGY - GENERAL O MARY Performing Organization Address [facility] Phon e Number [facility] - [address] [place], [place] [address] [facility] [place], [place] [id number] [place] [address] [address] [facility] Bacteria Cult, Aerobe / Anaerobe+Susc (12/30/2021 2:03 PM POT FEEDER) Patholo [employer] Method Time Signature Bacteria Cult, No growth 01/13/2022 DTL Aerobe/Anaerob after 14 4:02 PM POT FEEDER e+Susc days of incubation. Specimen Anatomical Collection Method Collection Time Receive d Time (Source) Location / / Volume Laterality Shoulder, Left 12/30/2021 2:03 PM 022 3:37 POT FEEDER PM POT FEEDER Comment: Specimen Source Site: Tissue #2 Narrative [facility] [place] - 01/13/2022 4:02 PM POT FEEDER Bacterial Culture: Placed in Bactec aero bic and Bactec anaerobic bottles Cyrus Polk M.D. LAB MICROBIOLOGY - GENERAL O MARY Performing Organization Address City/[facility] Phon e Number [facility] - [address] [place], [place] [address] [place], [place] [id number] [place] [address] Bacteria Cult, Aerobe / Anaerobe+Susc (12/30/2021 2:03 PM POT FEEDER) [facility] [employer] Method Time Signature Bacteria Cult, No growth 01/13/2022 DTL Aerobe/Anaerob after 14 4:02 PM POT FEEDER e+Susc days of incubation. Specimen Anatomical Collection Method Collection Time Receive d Time (Source) Location / / Volume Laterality Shoulder, Left 12/30/2021 2:03 PM 022 3:31 POT FEEDER PM POT FEEDER Comment: Specimen Source Site: Tissue #1 Narrative [facility] [place] - 01/13/2022 4:02 PM POT FEEDER Bacterial Culture: Placed in Bactec aero bic and Bactec anaerobic bottles Cyrus Polk M.D. LAB MICROBIOLOGY - GENERAL O RDERABLES Performing Organization Address City/State/ZIP Code Phon e Number [facility] - [address] [place], [place] [address] [facility] [place] [address] [facility] [address] documented in [...] tablet 1,000 mg Given 12/30/2021 12:02 PM POT FEEDER 1,00 0 mg (TYLENOL) 1,000 mg, oral, Once, On Tue12/30/21 at 1215, For 1 dose, Pre-Op acetaminophen tablet 1,000 mg (TYLENOL) Given 01/01/2022 11:36 AM POT FEEDER 1,000 mg 1,000 mg, oral, Every 6 hours, First dose on Tue12/30/21 at 1800 Given 01/01/2022 6:28 AM POT FEEDER 1,000 mg Given 12/31/2021 11:51 PM POT FEEDER 1,000 mg albuterol nebulizer solution 2.5 mg Given 12/31/2021 4:44 PM POT FEEDER 2.5 mg 2.5 mg, nebulization, Every 6 hours PRN, wheezing, Starting on Tue12/30/21 at 1711, Albuterol nebs were interchanged for albuterol/levalbuterol MDI (same frequency) atorvastatin tablet 80 mg (LIPITOR) Given 12/31/2021 8:57 PM POT FEEDER 80 mg 80 mg, oral, Daily at bedtime, First dose on Tue12/30/21 at 2100 Given 12/30/2021 9:55 PM POT FEEDER 80 mg benzonatate capsule 100 mg (TESSALON PER LES) Given 01/01/2022 3:10 AM POT FEEDER 100 mg 100 mg, oral, 3 times daily PRN, cough, Starting on Tue12/31/21 at 1702, Swallow whole. Do NOT crush, chew or open capsule. Given 12/31/2021 5:39 PM POT FEEDER 100 mg bupivacaine PF 0.2 % 550 mL in NaCl New Bag 01/01/2022 3:15 PM POT FEEDER 6 mL/hr 6 mL/hr 0.9% On-Q pain pump (CB004) 6 mL/hr, nerve catheter, Continuous, Starting on Tue01/01/22 at 1500, PACU & Post-Op, Location: Nerve Catheter Location, Nerve Catheter Location: Interscalene, Device: On-Q Pump bupivacaine PF 0.2 % in Rate/Dose Verify 01/01/2022 1:00 AM POT FEEDER 6 mL/ hr 6 mL/hr NaCl 0.9% 341 mL infusion (MARCAINE) 6 mL/hr, nerve catheter, Continuous, Starting on Tue12/30/21 at 1600, PACU & Post-Op, Nerve Catheter Location: Interscalene, Device: Hospital Infusion Pump Rate/Dose Verify 12/31/2021 12:11 AM POT FEEDER 6 mL/hr 6 mL/hr New Bag 12/30/2021 3:49 PM POT FEEDER 6 mL/hr 6 mL/hr buPROPion XL 24 hr tablet 150 mg (WELLBUTRIN Given 02/2022 8:35 AM POT FEEDER 150 mg XL) 150 mg, oral, Every morning, First dose on Clementine 12/31/21 at 0900, Swallow whole. Do NOT crush, chew, or split tablet. Given 12/31/2021 8:16 AM POT FEEDER 150 mg calcium carbonate chewable tablet Given 12/31/2021 11: 46 PM POT FEEDER 400 mg of calcium 400 mg of calcium (TUMS) 400 mg of calcium, oral, Every 2 hour PRN, indigestion, Starting on Tue12/30/21 at 1711, Doses listed are in mg of elemental calcium. Take with food. 500 mg calcium carbonate contains 200 mg of elemental calcium. Given 12/31/2021 9:15 PM POT FEEDER 400 mg of calcium carboxymethylcellulose 0.5 % ophthalmic Given 01/01/2022 1:15 AM POT FEEDER 2 drops solution 2 drop (REFRESH PLUS) 2 drop, both eyes, 4 times daily PRN, dry eyes, Starting on Tue12/30/21 at 1711 Given 12/31/2021 12:31 PM POT FEEDER 2 drops Given 12/31/2021 12:23 AM POT FEEDER 2 drops ceFAZolin in dextrose (iso-os) IVPB 2 New Bag 01/01/2022 6:27 AM POT FEEDER 2 g 200 mL/hr g (ANCEF) 2 g, intravenous, at 200 mL/hr, Administer over 30 Minutes, Every 8 hours, First dose on Tue12/30/21 at 2200, Start within 8 hours of last IV dose., Drug Monitoring Program: Pharmacist to adjust medication dosing based on indication and drug clearance factors., Indications: Bone and/or joint infection New Bag 12/31/2021 10:32 PM POT FEEDER 2 g 200 mL/hr New Bag 12/31/2021 2:21 PM POT FEEDER 2 g 200 mL/hr cefTRIAXone in dextrose (iso-osm) IVPB New Bag 01/01/2022 2:38 PM POT FEEDER 2 g 200 mL/hr 2 g (ROCEPHIN) 2 g, intravenous, at 200 mL/hr, Administer over 15 Minutes, Daily before lunch, First dose on Tue01/01/22 at 1345, Drug Monitoring Program: Pharmacist to adjust medication dosing based on indication and drug clearance factors., Indications: Bone and/or joint infection cetirizine tablet 10 mg (ZyrTEC) Given 01/01/2022 8:35 AM POT FEEDER 10 mg 10 mg, oral, 2 times daily, First dose on Tue12/30/21 at 2100, Drug Monitoring Program: Pharmacist to adjust medication dosing based on indication and drug clearance factors. Given 12/31/2021 8:57 PM POT FEEDER 10 mg Given 12/31/2021 8:16 AM POT FEEDER 10 mg cholecalciferol (vitamin D3) tablet 25 m cg Given 01/01/2022 8:35 AM POT FEEDER 25 mcg 25 mcg, oral, Daily, First dose on Tue12/31/21 at 0900, cholecalciferol (vitamin D3) orderable was interchanged for cholecalciferol (vitamin D3) tablet/capsule Given 12/31/2021 8:16 AM POT FEEDER 25 mcg D5W infusion 10-250 mL/hr, intravenous, [...] 5 mg (VALIUM) Given 12/31/2021 12:31 PM POT FEEDER 5 mg 5 mg, oral, 4 times daily PRN, muscle spasms, Starting on Tue12/30/21 at 2243 Given 12/31/2021 1:59 AM POT FEEDER 5 mg diphenhydrAMINE capsule 25 mg (BENADRYL) 25 mg, oral, Daily PRN, itching, Starting on Tue 2 at 0854 diphenhydrAMINE capsule 75 mg (BENADRYL) Given 01/01/2022 8:49 AM POT FEEDER 75 mg 75 mg, oral, Bedtime PRN, sleep, Starting on Tue12/30/21 at 1715 FLUoxetine capsule 80 mg (PROzac) Given 01/01/2022 8:34 AM POT FEEDER 80 mg 80 mg, oral, Daily, First dose on Tue12/31/21 at 0900, FLUoxetine orderable was interchanged for FLUoxetine tablet/capsule Given 12/31/2021 8:16 AM POT FEEDER 80 mg fluticasone furoate 100 mcg/actuation Given 01/01/2022 8:[address] 2 puffs inhaler 2 puff (ARNUITY ELLIPTA) 2 puff, inhalation, 2 times daily, First dose on Tue12/30/21 at 2100, fluticasone furoate 100 mcg was interchanged for fluticasone MDI 110 mcg Given 12/31/2021 9:04 PM POT FEEDER 2 puffs Given 12/31/2021 8:17 AM POT FEEDER 2 puffs granisetron (PF) injection 1 mg (KYTRIL) Given 12/30/2021 3:57 PM POT FEEDER 1 mg 1 mg, intravenous, Once as needed, nausea, vomiting, Starting on Tue12/30/21 at 1546, For 1 dose, PACU (only), If patient does not respond to ondansetron or haloperidol. (order of antiemetic administration - ondansetron then haloperidol then granisetron) haloperidol lactate injection 1 mg (HALD OL) Given 12/30/2021 4:31 PM POT FEEDER 1 mg 1 mg, intravenous, Every 6 [...] injection 0.2 mg Given 12/30/2021 4:17 PM POT FEEDER 0.2 mg (DILAUDID) 0.2 mg, intravenous, Every 5 min PRN, moderate pain or score 4-6 of 10, severe pain or score 7-10 of 10, Starting on Tue12/30/21 at 1546, PACU (only), Up to maximum total dose of 2 mg Given 12/30/2021 4:07 PM POT FEEDER 0.2 mg Given 12/30/2021 3:55 PM POT FEEDER 0.2 mg HYDROmorphone (PF) injection 0.4 mg Given 01/01/2022 4:56 AM POT FEEDER 0.4 mg (DILAUDID) 0.4 mg, intravenous, Every 2 hour PRN, severe pain or score 7-10 of 10, Starting on Tue12/30/21 at 1711, For 5 doses, May administer if pain is greater than 7 after scheduled and PRN regimen exhausted. If pain remains greater than 7, notify primary service. Given 12/31/2021 11:35 AM POT FEEDER 0.4 mg Given 12/31/2021 4:14 AM POT FEEDER 0.4 mg ipratropium-albuteroL 0.5-2.5 mg/3 mL nebulizer Given 01/01/2022 3:15 AM POT FEEDER 3 mL solution 3 mL (DUONEB) 3 mL, nebulization, 4 times daily PRN, shortness of breath, wheezing, Starting on Tue12/30/21 at 1711 ketamine injection 10 mg (KETALAR) Given 12/30/2021 12:38 PM POT FEEDER 10 mg 10 mg, intravenous, Once, On Tue12/30/21 at 1300, For 1 dose, Pre-Op lactated ringers Rate/Dose Change 01/01/2022 1:00 AM POT FEEDER 20 mL/hr 20 mL/hr 75 mL/hr, intravenous, Continuous, Starting on Tue12/30/21 at 1715, Until patient has 500cc po intake New Bag 12/31/2021 11:46 PM POT FEEDER 75 mL/hr 75 mL/hr Rate/Dose Change 12/31/2021 3:55 AM POT FEEDER 20 mL/hr 20 mL/hr lactated ringers Continued from OR 12/30/2021 4:00 PM POT FEEDER 75 mL/hr 75 mL/hr 75 mL/hr, intravenous, Continuous, Starting on Tue12/30/21 at 1600, PACU & Post-Op lamoTRIgine tablet 200 mg (LaMICtaL) Given 01/01/2022 8:34 AM POT FEEDER 200 mg 200 mg, oral, 2 times daily, First dose on Tue12/30/21 at 2100 Given 12/31/2021 8:56 PM POT FEEDER 200 mg Given 12/31/2021 8:16 AM POT FEEDER 200 mg midazolam (PF) injection 1 mg (VERSED) Given 12/30/2021 12:38 PM POT FEEDER 2 mg 1 mg, intravenous, Every 2 [...] 4 mg (ZOFRAN) Given 01/01/2022 1:16 AM POT FEEDER 4 mg 4 mg, intravenous, Every 6 hours PRN, nausea, vomiting, Starting on Tue12/30/21 at 1711, For 48 hours, Reassess for nausea or vomiting after at least 10 minutes. If nausea or vomiting persists administer next ordered antiemetic medications (order for antiemetic medication administration ondansetron then haloperidol then promethazine). Given 12/31/2021 8:16 AM POT FEEDER 4 mg oxyCODONE 12 hr tablet 20 mg (OxyCONTIN) Given 12/30/2021 12:35 PM POT FEEDER 20 mg 20 mg, oral, Once, On Tue12/30/21 at 1300, For 1 dose, Pre-Op, Swallow whole. Do NOT crush, chew, or split tablet. oxyCODONE IR tablet 10 mg (ROXICODONE) Given 12/31/2021 10:43 AM POT FEEDER 10 mg 10 mg, oral, Every 4 hours PRN, severe pain or score 7-10 of 10, Starting on Tue12/30/21 at 1536 Given 12/31/2021 6:19 AM POT FEEDER 10 mg Given 12/31/2021 12:22 AM POT FEEDER 10 mg oxyCODONE IR tablet 10 mg (ROXICODONE) Given 12/31/2021 2:21 PM POT FEEDER 10 mg 10 mg, oral, Every 4 hours PRN, severe pain or score 7-10 of 10, Starting on Tue12/31/21 at 1415 oxyCODONE IR tablet 10 mg (ROXICODONE) Given 01/01/2022 2:38 PM POT FEEDER 10 mg 10 mg, oral, Every 3 hours PRN, severe pain or score 7-10 of 10, Starting on Tue12/31/21 at 1745 Given 01/01/2022 11:35 AM POT FEEDER 10 mg Given 01/01/2022 7:07 AM POT FEEDER 10 mg oxyCODONE IR tablet 5 mg (ROXICODONE) 5 mg, oral, Every 3 hours PRN, moderate pain or score 4-6 of 10, Starting on Tue12/31/21 at 1745, If patient is >75 consider changing to 2.5-5mg scale pantoprazole DR tablet 40 mg (PROTONIX) Given 01/01/2022 3:46 PM POT FEEDER 40 mg 40 mg, oral, 2 times daily before breakfast and dinner, First dose on Tue12/31/21 at 0700, pantoprazole 40 mg oral twice daily was interchanged for esomeprazole 20 or 40 mg oral twice daily Swallow whole. Do NOT crush, chew, or split tablet. Given 01/01/2022 6:29 AM POT FEEDER 40 mg Given 12/31/2021 4:47 PM POT FEEDER 40 mg pregabalin capsule 600 mg (LYRICA) Given 01/01/2022 8:34 AM POT FEEDER 600 mg 600 mg, oral, 2 times daily, First dose on Tue12/30/21 at 2100 Given 12/31/2021 8:56 PM POT FEEDER 600 mg Given 12/31/2021 8:15 AM POT FEEDER 600 mg QUEtiapine tablet 50 mg (SEROquel) Given 12/31/2021 8:57 PM POT FEEDER 50 mg 50 mg, oral, Daily at bedtime, First dose on Tue12/30/21 at 2100 Given 12/30/2021 9:55 PM POT FEEDER 50 mg scopolamine base 1 mg Medication Applied 12/30/2021 12:02 PM 1 patch Behind Left Ear over 3 days 1 patch POT FEEDER (TRANSDERM SCOP) 1 patch, transdermal, Administer over 72 Hours, Once as needed, nausea and vomiting, Starting on Tue12/30/21 at 1201, For 1 dose, Pre-Op, Contains 1.5 mg to deliver 1 mg/72 hours. sennosides-docusate sodium 8.6-50 mg per Given 01/01/2022 8:35 A M POT FEEDER 1 tablet tablet 1 tablet (SENOKOT-S) 1 tablet, oral, 2 times daily, First dose on Tue12/30/21 at 2100, Do not give if patient has diarrhea. Given 12/31/2021 8:57 PM POT FEEDER 1 tablet Given 12/31/2021 8:16 AM POT FEEDER 1 tablet sodium chloride 0.9 % injection [...] injection 3 mL Given 12/31/2021 8:18 AM POT FEEDER 3 mL 3 mL, intravenous, Every 12 hours scheduled, First dose on Tue12/30/21 at 2100, PACU & Post-Op, Peripheral Intravenous Catheter and Rapid Infusion Catheter, when no infusion to maintain patency Given 12/30/2021 9:53 PM POT FEEDER 3 mL zonisamide capsule 300 mg (ZONEGRAN) Given 01/01/2022 8:35 AM POT FEEDER 300 mg 300 mg, oral, 2 times daily, First dose on Tue12/30/21 at 2100, Swallow whole. Do NOT crush, chew or open capsule. Given 12/31/2021 8:57 PM POT FEEDER 300 mg Given 12/31/2021 8:16 AM POT FEEDER 300 mg documented in this encounter Active and Recently Administered Medications Times are shown in POT FEEDER. Scheduled Medication Order 12/30/2021 12/31/2021 01/01/2022 acetaminophen [...] Gonzalez R.N.)1738 (Given - Provider: Fanny Sifuentes RBrittonNBrittno)2351 (Given - Provider: Jonny PérezS.Milad, R.N.) 0628 [...] 1419 (Given - Provider: Emre Rodriguez APRN, KEYLINER) 2,000 mg (rounded from 1,747.5 mg = [...] Ezequiel Hernandez R.N.) 08 (Given - Provider: Mcai Gonzalez R.N.)2056 (Given - Provider: Fanny Sifuentes [...] mg of calcium, oral, Every 2 hour CO N, indigestion, Starting on Tue12/30/21 at 1711, [...] Maci Gonzalez RBrittonN.) 0456 (Given - Provider: hSarifa ConcepcionN.) 0.4 mg, intravenous, Every 2 hour [...] over 3 days 1 patch (TRANSDERM S JOB HONER) (CANCELED) 1202 (Medication Applied - Provider: Manda [...] documented as of this encounter Care Teams Stud Master/Mistress Relationship Specialty Start Date End Date Elsewhere, Pcp PCP - General Internal Medicine 12/25/21 documented as of this encounter
--- OUTSIDE RECORDS SUMMARY | 2022-07-06 15:35 | XMS_ITS | Encounter Summary ---
:1965 Author Organization [facility] Address [address] [place] [address] Care Team Providers Name Role Phone Elsewhere, Pcp Primary Care Provider Unavailable Reason for Visit Reason Comments Pre-op Exam Outpatient (Routine) - Closed Specialty Diagnoses / Procedures Referred By Contact Refer red To Contact Orthopedic Surgery Diagnoses Preoperative Exam Painful Total Joint Arthroplasty Initial (HCC) Alfredo Herrera [facility] [address] [place] [phone] Referral ID Status Reason Start Date Expiration Date Visits Requ ested Visits Authorized [id number] Closed 10/13/2021 10/13/2022 1 1 Encounter Details Date Type Department Care Team Description 12/29/2021 Office Visit Department of Cyrus Polk Shoulde r Left (Primary Dx); Orthopedic Surgery in [place] Preoperative Exam; [place], [place] [address] [place] [address] Painful Total Joint Arthroplasty Initial ([facility]) [address] [place] [phone] Social History Tobacco Use Types Packs/Day Years [...] you attend advent or Patient refused 2021 advent services? Do [...] may involve the use of a medical claims manager made by a company [employer] I or one of my partners have collaborated to design, develop, or improve orthopedic implants, instruments, or products. Both the [facility] and the individual surgeons involved receive royalty payments from the use of those specific devices at other institutions, but no royalties or any other payments are paid for the use of those devices with any [facility] patient. The clinical rationale for the use of those devices as well as the availability and applicability of alternative devices was reviewed. He understands that the final decision for the use of a specific medical claims manager often is made at the time of surgery. All of his questions were answered; he understands and agrees with my approach to device selection and wants to proceed. DOCUMENT IMPROVEMENT documented in this encounter Plan of Treatment Not on filedocumented as of this encounter Visit Diagnoses Diagnosis Pain Shoulder Left - Primary Preoperative Exam Painful Total Joint Arthroplasty Initial (HCC) documented in this encounter Additional Health Concerns Infection Onset Date Last Indicated Resolved Time COVID19 Pending 12/29/2021 12/29/2021 12/29/2021 4:20 PM RN DOCUMENT IMPROVEMENT Assessment Noted Time PHQ-9 Depression Total Score: 16 02/11/2021 12:00 AM C DT documented as of this encounter Care Teams General Foreman Relationship Specialty Start Date End Date Elsewhere, Pcp PCP - General Internal Medicine 12/25/21 documented as of this encounter
--- OUTSIDE RECORDS SUMMARY | 2022-07-06 15:35 | XMS_ITS | Encounter Summary ---
:1965 Author Organization [facility] Address [address] [place] [address] Care Team Providers Name Role Phone Unavailable Primary Care Provider Unavailable Reason for Referral MRI/CAT/PET Scan (Routine) - Authorized Specialty Diagnoses / Procedures Referred By Contact Refer red To Contact Radiology Diagnoses Stroke Cerebrovascular Accident Personal History Occlusion Vertebral Artery With lnfarction (HCC) Robert Diehl M.D. [facility] Procedures MR Neck Angiogram without and with IV Contrast [address] [place] [address] Referral ID Status Reason Start Date Expiration Date Visits V isits Requested Authorized [id number] Authorized 12/10/2021 12/10/2022 1 1 D BANK ASSISTANT Outpatient (Routine) - Authorized Specialty Diagnoses / Procedures Referred By Contact Refer red To Contact Diagnoses Aneurysm Cerebral Unruptured (HCC) Robert Diehl M.D. [facility] Procedures PM Device interrogation (clinic) [address] [place] [address] Referral ID Status Reason Start Date Expiration Date Visits V isits Requested Authorized [id number] Authorized 12/10/2021 12/10/2022 1 1 D BANK ASSISTANT MRI/CAT/PET Scan (Routine) - Authorized Specialty Diagnoses / Procedures Referred By Contact Refer red To Contact Radiology Diagnoses Aneurysm Cerebral Unruptured (HCC) Robert Diehl M.D. [facility] Procedures MR Brain Angiogram without IV Contrast [address] [place] [phone] Referral ID Status Reason Start Date Expiration Date Visits V isits Requested Authorized [id number] Authorized 12/10/2021 12/10/2022 1 1 D BANK ASSISTANT Reason for Visit Reason Comments Michel Encounter Details Date Type Department Care Team Description 12/10/2021 Clinical Communication Department of Robert Deihl W8B/[facility] in [place], [place] [address] [facility] [address] [place] [phone] Social History Tobacco Use Types Packs/Day Years [...] you attend mu-ism or Patient refused 2021 baptist services? Do [...] 2:58 PM CST Signed and thank you. D BANK ASSISTANT documented in this encounter Plan of Treatment Scheduled Orders Name Type Priority Associated Diagnoses Order S chedule MR Brain Angiogram Imaging RAD - Routine Aneurysm Cerebral Exp ected: without IV Contrast (most inpatients Unruptured ([facility]) 05/03/2022, and all Expires: outpatients) 03/10/2023 PM Device Procedures Routine Aneurysm Cerebral Expected: interrogation Unruptured ([facility]) 12/29/2021 , (clinic) Expires: 03/10/2023 MR Neck Angiogram Imaging RAD - Routine Stroke Cerebrovascular Expected: without and with IV (most inpatients Accident Personal 05/03/2022 Contrast and all History (Approximate), outpatients) Occlusion Vertebral Expires: Artery With lnfarction 03/10 ([facility]) documented as of this encounter Visit Diagnoses Diagnosis Stroke Cerebrovascular Accident Personal History - Primary Aneurysm Cerebral Unruptured ([facility]) Occlusion Vertebral Artery With lnfarcti on ([facility]) documented in this encounter Additional Health Concerns Assessment Noted Time PHQ-9 Depression Total Score: 16 02/11/2021 12:00 AM C DT documented as of this encounter
--- OUTSIDE RECORDS SUMMARY | 2022-07-06 15:35 | XMS_ITS | Encounter Summary ---
:1965 Author Organization [facility] Address [address] [place] [phone] Care Team Providers Name Role Phone Elsewhere, Pcp Primary Care Provider Unavailable Encounter Details Date Type Department Care Team Description 12/30/2021 Anesthesia Event RST SEBAS MORAN OR Clifford Young M.D. [address] [place] [phone] [address] [facility] Collin Fernández M.D. [address] [place] [phone] [place] [phone] Anesthesia Record Procedure Summary [...] h andoff to the receiving staff during [facility] ch we 1. Identified the patient [...] Ayakalashell Andreyscout howard T, (created via procedure UPS DRIVER, SQL SERVER DBA UPS DRIVER, CRN A documentation); Mask Ventilation: Easy mask; [...] you attend spiritism or Patient refused 2021 restorationism services? Do [...] or the highest technical, or vocational p [facility] degree you have received? Sex Assigned at Date Recorded Female 03/01/2019 10:12 AM CDT documented as of this encounter OR Notes Anesthesia Postprocedure Evaluation - Clifford Young M.D. - 12/30/2021 3:55 PM CST Patient: Angie Mosquera Procedure Summary Date: 12/30/21 Room / Location: [address] / [facility] in [place], [place] Anesthesia Start: 1250 Anesthesia Stop: 1550 [...] Post Op nausea/vomiting: none Hydration status: euvolemic ICAL APPLICATOR Anesthesia Procedure Notes - Emre Rodriguez APRN, CRNA - 12/30/2021 2:29 PM CHEMICAL APPLICATOR Associated Order(s): Airway Airway Date/Time: 12/30/2021 1:02 [...] successful Airway event: no complications ATTESTATION STATEMENT ICAL APPLICATOR Anesthesia Preprocedure Evaluation - Clifford Young M.D. - 12/30/2021 1:23 PM CST Preprocedure Anesthesia & H&P Assessment Procedure Summary Anesthesia Start Date/Time: 12/30/21 1250 Procedure: ARTHROPLASTY RESECTION SHOULDER. 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 Location: [address] / [facility] in [place], [place] Providers: Cyrus Polk M.D. Pertinent components [...] with patient /legal guardian or through an project manager entertainment and media. Risks/Benefits/Alternatives of Blood transfusion discussed with patient / legal guardian, including an opportunity to ask questions and/or decline some or all transfusion therapies. The patient / legalguardian consented to the use of all blood products, as deemed medically necessary Approval to Proceed: approved for anesthesia ICAL APPLICATOR Anesthesia Procedure Notes - Clifford Khanna M.D. - 12/30/2021 12:56 PM CHEMICAL APPLICATOR Associated Order(s): Regional Block Regional Block Date/Time: [...] successful procedure Other complications: none ATTESTATION STATEMENT ICAL APPLICATOR documented in this encounter Plan of Treatment Not on filedocumented as of this encounter Procedures Procedure Name Priority Date/Time Associated Comments Diagnosis LDA ANE ENDOTRACHEAL Routine 12/30/2021 1:02 PM R esults for this AIRWAY CHEMICAL APPLICATOR procedure are i n the results section. MC ANE NERVE BLOCK Routine 12/30/2021 12:56 Resul ts for this WITH ULTRASOUND PM CHEMICAL APPLICATOR procedure ar e in the results section. LDA ANE UPPER Routine 12/30/2021 12:56 Results fo r this EXTREMITY PNC PM CHEMICAL APPLICATOR procedure are in the results section. MI US GUIDE PLC NDL Routine 12/30/2021 12:56 Resu lts for this PM CHEMICAL APPLICATOR procedure are i n the results section. MI INJ ANES BRACHIAL Routine 12/30/2021 12:56 Res ults for this PLEXUS CONT PM CHEMICAL APPLICATOR procedure are i n the results section. documented in this encounter Results LDA ANE ENDOTRACHEAL AIRWAY (12/30/2021 1:02 PM CHEMICAL APPLICATOR) Narrative Emre Rodriguez APRN, CRNA - 12/30/2021 1:02 PM CHEMICAL APPLICATOR Emre Rodriguez APRN, CRNA ? 12/30/2021 ??2:30 [...] ATTESTATION STATEMENT Clifford Young M.D. ANESTHESIA ORDERABLES MI INJ ANES BRACHIAL PLEXUS CONT, MI US GUIDE PLC NDL, LDA ANE UPPER EXTREMITY PNC, MC ANE NERVE BLOCK WITH ULTRASOUND (12/30/2021 12:56 PM CHEMICAL APPLICATOR) Narrative Clifford Khanna M.D. - 12/30/2021 12:56 P M CHEMICAL APPLICATOR Clifford Khanna M.D. ? 12/30/2021 12:57 PM [...] 5 % injection Given 12/30/2021 1:52 PM CHEMICAL APPLICATOR 250 mL intravenous, As needed, Starting on Tue12/30/21 at 1352, Anesthesia Intra-op bupivacaine PF 0.5 % (5 mg/mL) injection Given 12/30/2021 12:45 PM CHEMICAL APPLICATOR 10 mL (MARCAINE) intrathecal, As needed, Starting on Tue12/30/21 at 1245, Anesthesia Intra-op ceFAZolin injection 2,000 mg (ANCEF) Given 12/30/2021 2:19 PM CHEMICAL APPLICATOR 2 g 2,000 mg (rounded from 1,747.5 [...] dexAMETHasone injection (DECADRON) Given 12/30/2021 1:09 PM CHEMICAL APPLICATOR 8 mg intravenous, As needed, Starting on Tue12/30/21 at 1309, Anesthesia Intra-op diphenhydrAMINE injection (BENADRYL) Given 12/30/2021 1:32 PM CHEMICAL APPLICATOR 12.5 mg intravenous, As needed, Starting on Tue12/30/21 at 1332, Anesthesia Intra-op ePHEDrine (PF) injection Given 12/30/2021 1:58 PM CHEMICAL APPLICATOR 10 mg intravenous, As needed, Starting on Tue12/30/21 at 1346, Anesthesia Intra-op Given 12/30/2021 1:46 PM CHEMICAL APPLICATOR 5 mg Given 12/30/2021 1:24 PM CHEMICAL APPLICATOR 10 mg fentaNYL injection (SUBLIMAZE) Given 12/30/2021 3:12 PM CHEMICAL APPLICATOR 50 mcg intravenous, As needed, Starting on Tue12/30/21 at 1512, Anesthesia Intra-op ketamine injection (KETALAR) Given 12/30/2021 2:43 PM CHEMICAL APPLICATOR 20 mg intravenous, As needed, Starting on Tue12/30/21 at 1443, Anesthesia Intra-op lactated ringers New Bag 12/30/2021 12:53 PM CHEMICAL APPLICATOR intravenous, Continuous Infusion: Per Instructions PRN, Starting on Tue12/30/21 at 1253, Anesthesia Intra-op ondansetron (PF) injection (ZOFRAN) Given 12/30/2021 3:00 PM CHEMICAL APPLICATOR 4 mg intravenous, As needed, Starting on Tue12/30/21 at 1500, Anesthesia Intra-op phenylephrine 80 mcg/mL in Rate/Dose 12/30/2021 3:00 0.4 mcg/kg/min 20.97 NaCl 0.9% 250 mL infusion Change PM CHEMICAL APPLICATOR mL/hr intravenous, Continuous Infusion: Per Instructions PRN, Starting on Tue12/30/21 at 1404, Anesthesia Intra-op Rate/Dose Change 12/30/2021 2:36 PM CHEMICAL APPLICATOR 0.3 mcg/kg/min 15.728 mL/hr Rate/Dose Change 12/30/2021 2:25 PM CHEMICAL APPLICATOR 0.25 mcg/kg/min 13.106 mL/h r phenylephrine injection Given 12/30/2021 2:31 PM CHEMICAL APPLICATOR 100 mcg intravenous, As needed, Starting on Tue12/30/21 at 1346, Anesthesia Intra-op Given 12/30/2021 2:12 PM CHEMICAL APPLICATOR 100 mcg Given 12/30/2021 2:10 PM CHEMICAL APPLICATOR 100 mcg propofol 10 mg/mL infusion New Bag 12/30/2021 1:15 50 mcg/kg/min 2 0.97 mL/hr (DIPRIVAN) PM CHEMICAL APPLICATOR intravenous, Continuous Infusion: Per Instructions PRN, Starting on Tue12/30/21 at 1315, Anesthesia Intra-op New Bag 12/30/2021 1:09 PM CHEMICAL APPLICATOR 50 mcg/kg/min 20.97 mL/hr propofoL injection (DIPRIVAN) Given 12/30/2021 12:59 PM CHEMICAL APPLICATOR 140 mg intravenous, As needed, Starting on Tue12/30/21 at 1259, Anesthesia Intra-op rocuronium injection (ZEMURON) Given 12/30/2021 1:12 PM CHEMICAL APPLICATOR 10 mg intravenous, As needed, Starting on Tue12/30/21 at 1301, Anesthesia Intra-op Given 12/30/2021 1:01 PM CHEMICAL APPLICATOR 50 mg sugammadex injection (BRIDION) Given 12/30/2021 3:14 PM CHEMICAL APPLICATOR 139.8 mg intravenous, As needed, Starting on [...] documented as of this encounter Care Teams Rail Bender Relationship Specialty Start Date End Date Elsewhere, Pcp PCP - General Internal Medicine 12/25/21 documented as of this encounter
--- OUTSIDE RECORDS SUMMARY | 2022-07-06 15:35 | XMS_ITS | Encounter Summary ---
:1965 Author Organization [facility] Address [address] [place] [address] Care Team Providers Name Role Phone Elsewhere, Pcp Primary Care Provider Unavailable Encounter Details Date Type Department Care Team Description 12/30/2021 Surgery RST SEBAS MORAN OR Cyrus Polk, ARTHROPLASTY RESECTION [address] [facility] [place] [address] 0001 [address] [facility] [phone] [place] [phone] Social History Tobacco Use Types Packs/Day Years [...] you attend confucianist or Patient refused 2021 jewish services? Do [...] Comments Blood Pressure 119/74 12/30/2021 12:47 PM IT INFRASTRUCTURE CONSULTANT Pulse 79 12/30/2021 12:47 PM IT INFRASTRUCTURE CONSULTANT Temperature 36.8 ??C (98.2 ??F) 12/30/2021 11:22 AM IT INFRASTRUCTURE CONSULTANT Respiratory Rate 20 12/30/2021 12:47 PM IT INFRASTRUCTURE CONSULTANT Oxygen Saturation 99% 12/30/2021 12:47 PM IT INFRASTRUCTURE CONSULTANT Inhaled Oxygen Concentration - - Weight 69.9 kg (154 lb 1.6 12/30/2021 11:22 AM oz) IT INFRASTRUCTURE CONSULTANT Height 150.5 cm (4' 11.25) 12/30/2021 11:22 AM no shoe s/boots IT INFRASTRUCTURE CONSULTANT Body Mass Index 30.86 12/30/2021 11:22 AM IT INFRASTRUCTURE CONSULTANT documented in this encounter Discharge Summaries Dario Carrera M.D. - 01/01/2022 8:50 AM CST DISCHARGE SUMMARY BRIEF OVERVIEW Hospital: [facility] Discharge Provider: Cyrus Polk M.D. [...] OR DISCHARGE DISPOSITION [place] [facility] [place]] ACTIVE ISSUES REQUIRING FOLLOW UP Active [...] were provided to the patient and caregiver(s). INFRASTRUCTURE CONSULTANT documented in this encounter Discharge Instructions AttachmentsThe following attachments cannot be sent through Care Everywhere. Continuous Nerve-Block Infusion System: Often called a ???pain pump?? (Swazi) documented in this encounter Medications at Time [...] THC multivit-min/iron/folic/ Take 1 tablet by 0 [id number] (HAIR, SKIN AND mouth daily. NAILS ADVANCED [...] signs of local anesthetic systemic toxicity, occur. INFRASTRUCTURE CONSULTANT Fatemeh Pena R.N. - 01/01/2022 5:28 PM [...] when she got up for the day. INFRASTRUCTURE CONSULTANT Ruth Gonzalez, P.TBritton, D.P.T. - 01/01/2022 4:29 [...] 3-5 steps with a railing?: A Little AM-[facility] Basic Mobility (V.2) Raw Score: 23 AM-PAC Basic Mobility (V.2) Standardized Score: 50.88 Interpretation: Clinicians answer the -[facility] Inpatient Short Form based on observed [...] quad cane since it is not available [facility] by prescription. Barriers to Discharge Home: Other [...] (min): 23 min Ruth Gonzalez P.T., D.P.T. INFRASTRUCTURE CONSULTANT Elvira Duncan R.N. - 01/01/2022 3:21 PM [...] educational pamphlet Continuous Nerve-Block Infusion System ( [id number]).?? Discussed at home removal of nervecatheter, signs of toxicity, and provided the 20/06 number to call with questions.?? All questions answered. On-Q infusion will end Wednesday 01/03 at 2230. Informed patient she may wait until Tuesday morning to remove if she is sleeping. Note OnQ will not be empty as running at 6ml/hr with fill of 550cc. She is aware of this. INFRASTRUCTURE CONSULTANT Thao You L.I.C.S.W., M.S.W. - 01/01/2022 11:23 AM CST SUBJECTIVE Referral Data The patient was seen for ongoing discharge needs. A list of infusion options (that patient/family geographically resides or requests) has been provided to and reviewed with patient/family. Disclaimers: Financial disclosure provided informing patient of our ownership and financial relationship of the [facility] beds/home health & hospice agencies. Reviewed [...] Selected Services Address Phone Fax Patient Preferred [facility] [phone], [address] [facility] [place] [place] [address] -- Contact: Intake NURSING: - Adjust [...] draws will be managed by Outpatient Facility: [facility] Address: [address] [place] [address] Contact: Princess Jimenez will provide IV access [...] questions answered to patient's satisfaction. Please page [phone] for questions. 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 [id number] Pamela Leonard, Pharm.D., R.Ph. - 01/01/2022 10:14 [...] on post-operative opioids Pamela Crawford Pharm.D., R.Ph. [phone] INFRASTRUCTURE CONSULTANT Jose Guadalupe Nixon M.D. - 01/01/2022 8:31 AM CST Infectious Diseases Orthopedic Surgery [facility] Consulting Service Progress Note SUBJECTIVE -No acute [...] Date/Time Bacteria / Mandi Culture, Blood #2 [[id number]] Collected: 12/31/21 1604 Lab Status: In process Specimen: Blood, Peripheral Draw Updated: 12/31/21 165 Narrative: Received Bactec aerobic and Bactec anaerobic bottles Specimen Information: Specimen ID: [id number] Specimen Source: Blood, Peripheral Draw Specimen Comment: Specimen Source Site: Blood Specimen Collection Start Date: 12/31/2021 4:05 PM Specimen Received Date: 12/31/2021 4:51 PM Specimen ID: [id number] Specimen Source: Blood, Peripheral Draw Specimen Comment: Specimen Source Site: Blood Specimen Collection Start Date: 12/31/2021 4:05 PM Specimen Received Date: 12/31/2021 4:51 PM Specimen ID: [id number] Specimen Source: Blood, Peripheral Draw Specimen Comment: Specimen Source Site: Blood Specimen Collection Start Date: 12/31/2021 4:04 PM Specimen Received Date: 12/31/2021 4:51 PM Bacteria / Mandi Culture, Blood #1 [[id number]] Collected: 12/31/21 1552 Lab Status: In process Specimen: Blood, Peripheral Draw Updated: 12/31/21 1651 Narrative: Received Bactec aerobic and Bactec anaerobic bottles Specimen Information: Specimen ID: [id number] Specimen Source: Blood, Peripheral Draw Specimen Comment: Specimen Source Site: Blood Specimen Collection Start Date: 12/31/2021 3:52 PM Specimen Received Date: 12/31/2021 4:50 PM Specimen ID: [id number] Specimen Source: Blood, Peripheral Draw Specimen Comment: Specimen Source Site: Blood Specimen Collection Start Date: 12/31/2021 3:53 PM Specimen Received Date: 12/31/2021 4:50 PM Specimen ID: [id number] Specimen Source: Blood, Peripheral Draw Specimen Comment: Specimen Source Site: Blood Specimen Collection Start Date: 12/31/2021 3:53 PM Specimen Received Date: 12/31/2021 4:50 PM Bacteria Cult, Aerobe / Anaerobe+Susc [[id number]] Collected: 12/30/21 1411 Lab Status: Preliminary result Specimen: Shoulder, Left Updated: 12/31/21 1601 Bacteria Cult, Aerobe/Anaerobe+Susc No growth to date. Narrative: Bacterial Culture: Placed in Bactec aerobic and Bactec anaerobic bottles Bacteria Cult, Aerobe / Anaerobe+Susc [[id number]] Collected: 12/30/21 1405 Lab Status: Preliminary result Specimen: Synovial Fluid, Left Shoulder Updated: 12/31/21 1601 Bacteria Cult, Aerobe/Anaerobe+Susc No growth to date. Narrative: Bacterial Culture: Placed in Bactec aerobic and Bactec anaerobic bottles Bacteria Cult, Aerobe / Anaerobe+Susc [[id number]] Collected: 12/30/21 1404 Lab Status: Preliminary result Specimen: Shoulder, Left Updated: 12/31/21 1601 Bacteria Cult, Aerobe/Anaerobe+Susc No growth to date. Narrative: Bacterial Culture: Placed in Bactec aerobic and Bactec anaerobic bottles Bacteria Cult, Aerobe / Anaerobe+Susc [[id number]] Collected: 12/30/21 1403 Lab Status: Preliminary result Specimen: Shoulder, Left Updated: 12/31/21 1601 Bacteria Cult, Aerobe/Anaerobe+Susc No growth to date. Narrative: Bacterial Culture: Placed in Bactec aerobic and Bactec anaerobic bottles Bacteria Cult, Aerobe / Anaerobe+Susc [[id number]] Collected: 12/30/21 1403 Lab Status: Preliminary result Specimen: Shoulder, Left Updated: 12/31/21 1601 Bacteria Cult, Aerobe/Anaerobe+Susc No growth to date. Narrative: Bacterial Culture: Placed in Bactec aerobic and Bactec anaerobic bottles SARS Coronavirus 2, Molecular Detection, PCR, Varies Asymptomatic [[id number]] Collected: 12/29/21 1111 Lab Status: Final result [...] ----ADDITIONAL INFORMATION---- This RT-PCR test using the Unafinance SARS-CoV-2 Assay ( [employer]) performed on the Unafinance Two Module System has received Emergency Use Authorization (EUA) by the U.S. Food and Drug Administration, and is modified from the injection mold tooling technician's instructions with a bridging study. Performance characteristics were verified by [facility] in a manner consistent with CLIA requirements. Visit the CDC website: https://www.cdc.gov/coronavirus/ for the most recent guidelines on Coronavirus testing. Fact Sheet for Healthcare Providers: https://www.fda.gov/media/029152/download Fact Sheet for Patients: https://www.fda.gov/media/233172/download ASSESSMENT / PLAN 56-year-old female with a [...] is consistent with aspiration results from original [facility] evaluation which is likely underwriting service representative of the culprit organism causing her [...] of Infectious Diseases OPAT monitoring program at [phone] after dismissal. Primary service to follow labs while patient is hospitalized. [place] pharmacist to adjust dosing after dismissal 4. [...] Please page Ortho C-ID service pager at [phone] with any questions. ?? Jose Guadalupe Nixon [...] - Date/Time Bacteria Cult, Aerobe / Anaerobe+Susc [[id number]] Collected: 12/30/21 1411 Lab Status: In process Specimen: Shoulder, Left Updated: 12/30/21 1540 Narrative: Bacterial Culture: Placed in Bactec aerobic and Bactec anaerobic bottles Bacteria Cult, Aerobe / Anaerobe+Susc [[id number]] Collected: 12/30/21 1405 Lab Status: In process Specimen: Synovial Fluid, Left Shoulder Updated: 12/30/21 1519 Narrative: Bacterial Culture: Placed in Bactec aerobic and Bactec anaerobic bottles Bacteria Cult, Aerobe / Anaerobe+Susc [[id number]] Collected: 12/30/21 1404 Lab Status: In process Specimen: Shoulder, Left Updated: 12/30/21 1536 Narrative: Bacterial Culture: Placed in Bactec aerobic and Bactec anaerobic bottles Bacteria Cult, Aerobe / Anaerobe+Susc [[id number]] Collected: 12/30/21 1403 Lab Status: In process Specimen: Shoulder, Left Updated: 12/30/21 1533 Narrative: Bacterial Culture: Placed in Bactec aerobic and Bactec anaerobic bottles Bacteria Cult, Aerobe / Anaerobe+Susc [[id number]] Collected: 12/30/21 1403 Lab Status: In process Specimen: Shoulder, Left Updated: 12/30/21 1538 Narrative: Bacterial Culture: Placed in Bactec aerobic and Bactec anaerobic bottles SARS Coronavirus 2, Molecular Detection, PCR, Varies Asymptomatic [[id number]] Collected: 12/29/21 1111 Lab Status: Final result [...] ----ADDITIONAL INFORMATION---- This RT-PCR test using the Unafinance SARS-CoV-2 Assay ( [employer].) performed on the Unafinance Two Module System has received Emergency Use Authorization (EUA) by the U.S. Food and Drug Administration, and is modified from the injection mold tooling technician's instructions with a bridging study. Performance characteristics were verified by [facility] in a manner consistent with CLIA requirements. Visit the CDC website: https://www.cdc.gov/coronavirus/ for the most recent guidelines on Coronavirus testing. Fact Sheet for Healthcare Providers: https://www.fda.gov/media/952397/download Fact Sheet for Patients: https://www.fda.gov/media/080963/download ASSESSMENT / PLAN IMPRESSION/REPORT/PLAN #1 Status post [...] 6 am, please page Ortho House at [facility] [phone] INFRASTRUCTURE CONSULTANT Trey Rdz R.N. - 12/31/2021 7:34 AM [...] with onq pump later today or tomorrow INFRASTRUCTURE CONSULTANT Jey Matos D.O. - 12/31/2021 6:53 AM [...] - Date/Time Bacteria Cult, Aerobe / Anaerobe+Susc [[id number]] Collected: 12/30/21 1411 Lab Status: In process Specimen: Shoulder, Left Updated: 12/30/21 1540 Narrative: Bacterial Culture: Placed in Bactec aerobic and Bactec anaerobic bottles Bacteria Cult, Aerobe / Anaerobe+Susc [[id number]] Collected: 12/30/21 1405 Lab Status: In process Specimen: Synovial Fluid, Left Shoulder Updated: 12/30/21 1519 Narrative: Bacterial Culture: Placed in Bactec aerobic and Bactec anaerobic bottles Bacteria Cult, Aerobe / Anaerobe+Susc [[id number]] Collected: 12/30/21 1404 Lab Status: In process Specimen: Shoulder, Left Updated: 12/30/21 1536 Narrative: Bacterial Culture: Placed in Bactec aerobic and Bactec anaerobic bottles Bacteria Cult, Aerobe / Anaerobe+Susc [[id number]] Collected: 12/30/21 1403 Lab Status: In process Specimen: Shoulder, Left Updated: 12/30/21 1533 Narrative: Bacterial Culture: Placed in Bactec aerobic and Bactec anaerobic bottles Bacteria Cult, Aerobe / Anaerobe+Susc [[id number]] Collected: 12/30/21 1403 Lab Status: In process Specimen: Shoulder, Left Updated: 12/30/21 1538 Narrative: Bacterial Culture: Placed in Bactec aerobic and Bactec anaerobic bottles SARS Coronavirus 2, Molecular Detection, PCR, Varies Asymptomatic [[id number]] Collected: 12/29/21 1111 Lab Status: Final result [...] ----ADDITIONAL INFORMATION---- This RT-PCR test using the Unafinance SARS-CoV-2 Assay ( [employer].) performed on the Unafinance Two Module System has received Emergency Use Authorization (EUA) by the U.S. Food and Drug Administration, and is modified from the injection mold tooling technician's instructions with a bridging study. Performance characteristics were verified by [facility] in a manner consistent with CLIA requirements. Visit the CDC website: https://www.cdc.gov/coronavirus/ for the most recent guidelines on Coronavirus testing. Fact Sheet for Healthcare Providers: https://www.fda.gov/media/542058/download Fact Sheet for Patients: https://www.fda.gov/media/392300/download ASSESSMENT / PLAN IMPRESSION/REPORT/PLAN #1 Status post [...] 6 am, please page Ortho House at [facility] [phone] Trey Phan R.N. - 12/30/2021 4:39 PM [...] at home. She is registered with the [facility] for medical cannabis and she [place]s [place]. She was told to leave her [...] Take 150 mg by mouth every morning. gwgaimurmn-mrhunvceucarh-jwlj (ESGIC) 50-325-40 mg per tablet Past Week [...] by mouth 2 (two) times a day. INFRASTRUCTURE CONSULTANT documented in this encounter Procedure Notes Soraida [...] to release the adhesive from the skin. http://[employer]/products/secureportiv INFRASTRUCTURE CONSULTANT documented in this encounter Consult Notes Ruth [...] (HCC) ??? Nicotine Dependence Unspecified ??? Other Jail Current Drug Therapy ??? Direct Infection Of [...] Right Lives With: Alone Receives Help From: transportation attendant, Family, Friend(s) ADL Assistance: Required assistance ADL Assistance Comments: Gets help from DIE SET UP WORKER for her bath/shower and for her meals IADL/Homemaking Assistance: Required assistance IADL/Homemaking Assistance Comments: Gets help for housecleaning Driving: Independent Occupational Role: On disability Prior Mobility/Functional Transfers Level of Dixie: Modified independent Gait Devices/Wheelchair Used: Cane Gait [...] session with call light in reach and DIE SET UP WORKER present, all needs metand questions answered. Contact monitoring: PPE used during therapy: Therapist was wearing the following PPE throughout entire session: surgicalmask and eye protection Patient was wearing a mask during therapy session: yes, when out of room Outcome Measures [facility] Inpatient Short Form: -[facility] Basic Mobility (V.2) How much help [...] 3-5 steps with a railing?: A Lot AM-[facility] Basic Mobility (V.2) Raw Score: 17 AM-PAC [...] (min): 36 min Ruth Gonzalez P.T., Juice.P.T. INFRASTRUCTURE CONSULTANT Thao You L.I.C.S.W., M.S.W. - 12/31/2021 2:04 PM CSTAssociated Order(s): IP CONSULT TO CARE MANAGEMENT; IP CONSULT TO CARE MANAGEMENT; IP CONSULT TO CARE MANAGEMENT Psychosocial Assessment SUBJECTIVE DEMOGRAPHIC INFORMATION Person(s) present during interview: Patient Primary care clinic and provider: [facility] Primary Language: Swazi Legal Information: Legal decision maker for self [...] / Household Status: Patient resides alone in [place], [place]. She lives in a two bedroom apartment. Patient has four adultchildren two of whom live in [place]. Patient son Rafal lives next door to patient. Support Systems: Family members, Friends/neighbors. We have not received permission to contact them. Primary caregiver: Self Accompanied by/Relationship: None Support System: Family members, Friends/neighbors Spirituality / Christian / Culture: , None History: No Education: High school Employment: Disabled Psychosocial Risk Factors impacting the patient: Resides alone, mental health issues Abuse, Neglect, Maltreatment, Trauma: Current: None reported. Past: None reported. ENVIRONMENTAL SUPPORTS Current Living Situation: Private residence Patient's Home Environment: Resides in a two bedroom apartment [address] Care Facility Name (if applicable): NA Anticipated [...] Behavior: Oriented Communication: Reads, writes and speaks Swazi It is anticipated that the patient will need assistance with .Dressing,bathing, meal prep, housekeeping, shopping ASSISTIVE DEVICES Patient has the following equipment: Eyeglasses, Dentures upper, Dentures lower, cane, walker Patient anticipates potentially needing the following additional equipment: None Transportation needs: Independent to drive, support from family and friends SERVICES REQUESTED Infusion therapy GAS PLANT TECHNICIAN Formal and Informal Resources: Patient receives home health aid services three times per week and jail visit one time every two weeks through [facility]. FINANCES/INSURANCE Primary insurance: MEDICARE A AND B Secondary insurance: MEDICA ADVANCE DIRECTIVES Advance Directive: Patient does not have advance directive, does not want information DISCHARGE PLANNING Patient is planning on returning home upon her discharge. She currently receives home health aid services and jail through [facility]. Patient also has support from a [...] good support group consisting of family, friends and[facility] through [facility]. INTERVENTIONS ?? Psychosocial assessment ?? Rapport building ?? Education on coping with chronic pain. PLAN ?? Social work will continue to follow for discharge planning and support. ?? Social work did speak with Pat at [facility] to confirm home health services. ?? Social work will work on infusion therapy referrals as well as home health/outpatient picc site care and labs. Anticipated barriers to the transition of care/plan: None Joe Ervin, M.S.WBritton 12/31/2021 INFRASTRUCTURE CONSULTANT Jose Guadalupe Nixon M.D. - 12/31/2021 7:31 AM CSTAssociated Order(s): IP CONSULT TO INFECTIOUS DISEASES Infectious Diseases Orthopedic Surgery [facility] Consulting Service Consult Note SUBJECTIVE REASON FOR [...] prompting aspiration (09/25/21) which revealed elevated TNC (05027) with 81% PMNs with cultures positive for1 [...] debridement. The patient was subsequently admitted to [facility] for further management. Intraoperative cultures and [...] - Date/Time Bacteria Cult, Aerobe / Anaerobe+Susc [[id number]] Collected: 12/30/21 1411 Lab Status: In process Specimen: Shoulder, Left Updated: 12/30/21 1540 Narrative: Bacterial Culture: Placed in Bactec aerobic and Bactec anaerobic bottles Bacteria Cult, Aerobe / Anaerobe+Susc [[id number]] Collected: 12/30/21 1405 Lab Status: In process Specimen: Synovial Fluid, Left Shoulder Updated: 12/30/21 1519 Narrative: Bacterial Culture: Placed in Bactec aerobic and Bactec anaerobic bottles Bacteria Cult, Aerobe / Anaerobe+Susc [[id number]] Collected: 12/30/21 1404 Lab Status: In process Specimen: Shoulder, Left Updated: 12/30/21 1536 Narrative: Bacterial Culture: Placed in Bactec aerobic and Bactec anaerobic bottles Bacteria Cult, Aerobe / Anaerobe+Susc [[id number]] Collected: 12/30/21 1403 Lab Status: In process Specimen: Shoulder, Left Updated: 12/30/21 1533 Narrative: Bacterial Culture: Placed in Bactec aerobic and Bactec anaerobic bottles Bacteria Cult, Aerobe / Anaerobe+Susc [[id number]] Collected: 12/30/21 1403 Lab Status: In process Specimen: Shoulder, Left Updated: 12/30/21 1538 Narrative: Bacterial Culture: Placed in Bactec aerobic and Bactec anaerobic bottles SARS Coronavirus 2, Molecular Detection, PCR, Varies Asymptomatic [[id number]] Collected: 12/29/21 1111 Lab Status: Final result [...] ----ADDITIONAL INFORMATION---- This RT-PCR test using the Unafinance SARS-CoV-2 Assay ( [employer]) performed on the Unafinance Two Module System has received Emergency Use Authorization (EUA) by the U.S. Food and Drug Administration, and is modified from the injection mold tooling technician's instructions with a bridging study. Performance characteristics were verified by [facility] in a manner consistent with CLIA requirements. Visit the CDC website: https://www.cdc.gov/coronavirus/ for the most recent guidelines on Coronavirus testing. Fact Sheet for Healthcare Providers: https://www.fda.gov/media/571783/download Fact Sheet for Patients: https://www.fda.gov/media/838278/download ASSESSMENT / PLAN 56-year-old female with a [...] is consistent with aspiration results from original [facility] evaluation which is likely underwriting service representative of the culprit organism causing her [...] will follow along closely. Please page the [facility]-ID service pager at [phone] with questions. Thank you for the consultation. Jose Guadalupe Nixon M.D. INFRASTRUCTURE CONSULTANT Associated attestation - Gucci Salvador M.D. - 12/31/2021 6:07 PM IT INFRASTRUCTURE CONSULTANT DEMOGRAPHIC INFORMATION Clinic Number:[phone] Patient Name: Angie [...] prescriptions, and Oxycodone. Oxycodone filled here at [facility] pharmacy. Patient going home with an interscalene block OnQ pump. Transportation provided by her son. INFRASTRUCTURE CONSULTANT Fanny Sifuentes R.N. - 12/31/2021 11:00 PM [...] staff assistance to bathroom. Navin Hernandez R.N. INFRASTRUCTURE CONSULTANT documented in this encounter OR Notes Op Note - Cyrus Polk M.D. - 12/30/2021 2:50 PM CST STAFF: Cyrus Polk M.D. RESIDENT: Dario Carrera M.D. PRE-OPERATIVE DIAGNOSIS Left infected reverse arthroplasty. POST-OPERATIVE DIAGNOSIS Left infected reverse arthroplasty. A first assist was necessary for one or more of [...] Cyrus Polk M.D. CT CT Job ID: [id number] INFRASTRUCTURE CONSULTANT documented in this encounter Miscellaneous Notes Hospital [...] and pain is controlled on oral medications. INFRASTRUCTURE CONSULTANT documented in this encounter Plan of Treatment Scheduled Referrals Name Type Priority Associated Diagnoses Order S [facility] Outpatient Referral Routine Direct Infection Of Ordered: Health Referral Left Shoulder In 01/01/20 22 Infectious And Parasitic Diseases Classified Elsewhere (HCC) documented as of this encounter Procedures Procedure Name Priority Date/Time Associated Comments Diagnosis PLACE PERIPHERALLY Routine 01/01/2022 12:11 Resul ts for this INSERTED CENTRAL PM IT INFRASTRUCTURE CONSULTANT procedure a re in CATHETER (PICC) the results section. REMOTE OXIMETRY Routine 12/31/2021 5:23 MONITORING CONT. PM IT INFRASTRUCTURE CONSULTANT REMOTE OXIMETRY Routine 12/31/2021 5:23 MONITORING CONT. PM IT INFRASTRUCTURE CONSULTANT BACTERIA / MANDI Routine 12/31/2021 4:04 Result s for this CULTURE, BLOOD PM IT INFRASTRUCTURE CONSULTANT procedure are in the results section. BACTERIA / MANDI Routine 12/31/2021 3:52 Result s for this CULTURE, BLOOD PM IT INFRASTRUCTURE CONSULTANT procedure are in the results section. ADULT OXYGEN THERAPY Routine 12/31/2021 8:01 AM IT INFRASTRUCTURE CONSULTANT CBC WITH Routine 12/31/2021 4:25 Results for this DIFFERENTIAL, B AM IT INFRASTRUCTURE CONSULTANT procedure ar e in the results section. BASIC METABOLIC Routine 12/31/2021 4:25 Results f or this PANEL, S/P AM IT INFRASTRUCTURE CONSULTANT procedure are i n the results section. ADULT OXYGEN THERAPY Routine 12/30/2021 8:01 PM IT INFRASTRUCTURE CONSULTANT ADULT OXYGEN THERAPY Routine 12/30/2021 5:12 PM IT INFRASTRUCTURE CONSULTANT ADULT OXYGEN THERAPY Routine 12/30/2021 5:12 PM IT INFRASTRUCTURE CONSULTANT ADULT OXYGEN THERAPY Routine 12/30/2021 3:46 PM IT INFRASTRUCTURE CONSULTANT ADULT OXYGEN THERAPY Routine 12/30/2021 3:46 PM IT INFRASTRUCTURE CONSULTANT DX SHOULDER LEFT 1 RAD - Timed (for 12/30/2021 3:41 Re sults for this VIEW specific PM IT INFRASTRUCTURE CONSULTANT procedure are i n dates/times) the results section. SURGICAL PATHOLOGY, Routine 12/30/2021 2:15 Shoulder Joint Res ults for this FROZEN LAB PM IT INFRASTRUCTURE CONSULTANT Disorder Left procedure are in the results section. BACTERIA CULT, Routine 12/30/2021 2:11 Results fo r this AEROBE/ANAEROBE+SUSC PM IT INFRASTRUCTURE CONSULTANT procedu re are in the results section. BACTERIA CULT, Routine 12/30/2021 2:05 Results fo r this AEROBE/ANAEROBE+SUSC PM IT INFRASTRUCTURE CONSULTANT procedu re are in the results section. BACTERIA CULT, Routine 12/30/2021 2:04 Results fo r this AEROBE/ANAEROBE+SUSC PM IT INFRASTRUCTURE CONSULTANT procedu re are in the results section. BACTERIA CULT, Routine 12/30/2021 2:03 Results fo r this AEROBE/ANAEROBE+SUSC PM IT INFRASTRUCTURE CONSULTANT procedu re are in the results section. BACTERIA CULT, Routine 12/30/2021 2:03 Results fo r this AEROBE/ANAEROBE+SUSC PM IT INFRASTRUCTURE CONSULTANT procedu re are in the results section. ARTHROPLASTY 12/30/2021 12:34 Shoulder Joint RESECTION SHOULDER PM IT INFRASTRUCTURE CONSULTANT Disorder Left documented in this encounter Results Place peripherally inserted central catheter (PICC) (01/01/2022 12:11 PM IT INFRASTRUCTURE CONSULTANT) Narrative MMODAL - 01/01/2022 12:11 PM IT INFRASTRUCTURE CONSULTANT Soraida Dick R.N. ? 01/01/2022 12:13 PM [...] to release the adhesive from the skin. [email or web address]/products/secur [email or web address] Dario Carrera M.D. PROCEDURE/MINOR SURGICAL ORD ERABLES Performing Organization Address City/State/ZIP Code Phon e Number MMODAL MMODAL NA Bacteria / Mandi Culture, Blood #2 (12/31/2021 4:04 PM IT INFRASTRUCTURE CONSULTANT) [facility] gist Method Time Signature Bacteria/Valerie No growth 01/05/2022 DT da Culture, after 5 5:02 PM IT INFRASTRUCTURE CONSULTANT Blood days of incubation. Specimen (Source) Anatomical Collection Method Collection Time Re ceived Time Location / / Volume Laterality Blood (Blood, 12/31/2021 4:04 12/31/2021 4:51 Peripheral Draw) PM IT INFRASTRUCTURE CONSULTANT PM IT INFRASTRUCTURE CONSULTANT Comment: Specimen Source Site: Blood Narrative [facility] - 01/05/2022 5:02 PM IT INFRASTRUCTURE CONSULTANT Received Bactec aerobic and Bactec anaer obic bottles Dario Carrera M.D. LAB MICROBIOLOGY - GENERAL O RDERABLES Performing Organization Address City/[facility]/ZIP Code Phon e Number [facility] - [address] [place], [place] [address] [place] [address] Laboratories-[facility] 200 [facility] Bacteria / Mandi Culture, Blood #1 (12/31/2021 3:52 PM IT INFRASTRUCTURE CONSULTANT) [facility] Qritiqr Method Time Signature Bacteria/Valerie No growth 01/05/2022 DTL da Culture, after 5 5:02 PM IT INFRASTRUCTURE CONSULTANT Blood days of incubation. Specimen (Source) Anatomical Collection Method Collection Time Re ceived Time Location / / Volume Laterality Blood (Blood, 12/31/2021 3:52 12/31/2021 4:50 Peripheral Draw) PM IT INFRASTRUCTURE CONSULTANT PM IT INFRASTRUCTURE CONSULTANT Comment: Specimen Source Site: Blood Narrative [facility] - 01/05/2022 5:02 PM IT INFRASTRUCTURE CONSULTANT Received Bactec aerobic and Bactec anaer obic bottles Dario Carrera M.D. LAB MICROBIOLOGY - GENERAL O RDERABLES Performing Organization Address City/State/ZIP Code Phon e Number [address] [address] [facility] [place] [address] [facility] (ABNORMAL) CBC with Differential, Blood (12/31/2021 4:25 AM IT INFRASTRUCTURE CONSULTANT) [facility] Method Time Signature Hemoglobin 8.9 (L) 11.6 - 12/31/2021 DTL 15.0 g/dL 5:15 AM IT INFRASTRUCTURE CONSULTANT Hematocrit 27.3 (L) 35.5 - 12/31/2021 DTL 44.9 % 5:15 AM IT INFRASTRUCTURE CONSULTANT Erythrocytes 3.26 (L) 3.92 - 12/31/2021 DTL 5.13 5:15 AM IT INFRASTRUCTURE CONSULTANT x10(12)/L MCV 83.7 78.2 - 12/31/2021 DTL 97.9 fL 5:15 AM IT INFRASTRUCTURE CONSULTANT RBC Distrib Width 19.6 (H) 12.2 - 12/31/2021 DTL 16.1 % 5:15 AM IT INFRASTRUCTURE CONSULTANT Platelet Count 274 157 - 371 12/31/2021 DTL x10(9)/L 5:15 AM IT INFRASTRUCTURE CONSULTANT Leukocytes 6.6 3.4 - 9.6 12/31/2021 DTL x10(9)/L 5:15 AM IT INFRASTRUCTURE CONSULTANT Neutrophils 4.91 1.56 - 12/31/2021 DTL 6.45 5:15 AM IT INFRASTRUCTURE CONSULTANT x10(9)/L Lymphocytes 1.10 0.95 - 12/31/2021 DTL 3.07 5:15 AM IT INFRASTRUCTURE CONSULTANT x10(9)/L Monocytes 0.61 0.26 - 12/31/2021 DTL 0.81 5:15 AM IT INFRASTRUCTURE CONSULTANT x10(9)/L Eosinophils <0.03 0.03 - 12/31/2021 DTL 0.48 5:15 AM IT INFRASTRUCTURE CONSULTANT x10(9)/L Basophils <0.03 0.01 - 12/31/2021 DTL 0.08 5:15 AM IT INFRASTRUCTURE CONSULTANT x10(9)/L Specimen Anatomical Collection Method Collection Time Receive d Time (Source) Location / / Volume Laterality Blood (Blood, 12/31/2021 4:25 AM 12/31/19 5:04 Venous) IT INFRASTRUCTURE CONSULTANT AM IT INFRASTRUCTURE CONSULTANT Dario Carrera M.D. LAB BLOOD ADD-ON Performing Organization Address City/State/ZIP Code Phon e Number [facility] - [address] [place] [address] [facility] [place] [address] Laboratories-[facility] [address] [facility] (ABNORMAL) Basic Metabolic Panel (12/31/2021 4:25 AM IT INFRASTRUCTURE CONSULTANT) P athologist Signature Potassium, S 4.4 3.6 - 5.2 12/31/2021 DTL mmol/L 5:35 AM IT INFRASTRUCTURE CONSULTANT Sodium, S 134 (L) 135 - 145 12/31/2021 DTL mmol/L 5:35 AM IT INFRASTRUCTURE CONSULTANT Chloride, S 103 98 - 107 12/31/2021 DTL mmol/L 5:35 AM IT INFRASTRUCTURE CONSULTANT Bicarbonate, S 22 22 - 29 12/31/2021 DTL mmol/L 5:35 AM IT INFRASTRUCTURE CONSULTANT Anion Gap 9 7 - 15 12/31/2021 DTL 5:35 AM IT INFRASTRUCTURE CONSULTANT BUN (Blood 21 6 - 21 12/31/2021 DTL Urea mg/dL 5:35 AM IT INFRASTRUCTURE CONSULTANT Nitrogen), S Creatinine, S 0.74 0.59 - 12/31/2021 DTL 1.04 mg/dL 5:35 AM IT INFRASTRUCTURE CONSULTANT eGFR-Non 90 >=60 12/31/2021 DTL Black/ mL/min/BSA 5:35 AM IT INFRASTRUCTURE CONSULTANT [place] Comment: ----ADDITIONAL INFORMATION---- Estimated GFR calculated using the 2009 CKD_EPI creatinine equation. eGFR-Black/ >90 >=60 mL/min/BSA 2021 5:35 AM IT INFRASTRUCTURE CONSULTANT DTL Comment: ----ADDITIONAL INFORMATION---- Estimated GFR calculated using the 2009 CKD_EPI creatinine equation. Calcium, Total, S 8.7 8.6 - 10.0 mg/dL 12/31/2021 5:35 AM IT INFRASTRUCTURE CONSULTANT DTL Glucose, S 138 70 - 140 mg/dL 12/31/2021 5:35 AM IT INFRASTRUCTURE CONSULTANT D TL Specimen Anatomical Collection Method Collection Time Receive d Time (Source) Location / / Volume Laterality Blood (Blood, 12/31/2021 4:25 AM 12/31/19 5:18 Venous) IT INFRASTRUCTURE CONSULTANT AM IT INFRASTRUCTURE CONSULTANT Dario Carrera M.D. LAB BLOOD ADD-ON Performing Organization Address City/State/ZIP Code Phon e Number [facility] - [address] [place], [place] [address] [facility] [place] [address] Laboratories-[facility] [address] DX Shoulder Left 1 View (12/30/2021 3:41 PM IT INFRASTRUCTURE CONSULTANT) Anatomical Region Laterality Modality Upper Extremity, Shoulder, Musculoskeletal RST LOS, Left Computed Radiography Musculoskeletal ARZ LOS, Muskuloskeletal FLA LOS Specimen (Source) Anatomical Collection Method Collection Time Re ceived Time Location / / Volume Laterality 12/30/2021 3:54 PM IT INFRASTRUCTURE CONSULTANT Impressions 12/30/2021 3:59 PM IT INFRASTRUCTURE CONSULTANT Postoperative changes of a left shoulder arthroplasty resection and placement of an antibiotic spacer. Negat lalo for postoperative purposes. Narrative 12/30/2021 3:59 PM IT INFRASTRUCTURE CONSULTANT EXAM: ??DX SHOULDER LEFT 1 VIEW Procedure Note Timothy Resendiz M.D. - 12/30/2021Forma tting of this note might be different from the original. EXAM: DX SHOULDER LEFT 1 VIEW IMPRESSION: Postoperative changes of a left shoulder arthroplasty resection and placement of an antibiotic spacer. Negat lalo for postoperative purposes. Dario Carrera M.D. IMG DIAGNOSTIC IMAGING PROCE [facility] Surgical Pathology, Frozen Lab (12/30/2021 2:15 PM IT INFRASTRUCTURE CONSULTANT) Component Value Ref Test Analysis Performed At [facility] Method Time Signature 01/01/2022 METH 8:22 AM IT INFRASTRUCTURE CONSULTANT Participated in Kelly Howard, 01/01/2022 METH the D.O.-Pathology 8:22 AM IT INFRASTRUCTURE CONSULTANT Interpretation Resident Report Solomon Marcum M.D. 01/01/2022 METH electronically 8:22 AM IT INFRASTRUCTURE CONSULTANT signed by I verify that I have examined all relevant slides/materials for the specimen(s) and rendered or confirmed the diagnosis. Frozen A. ??Synovium, left shoulder, excision: ??Synovial tissue 01/01/2022 METH Intraoperative with 8:22 AM IT INFRASTRUCTURE CONSULTANT Report acute inflammation (>5 neutrophils/high power field). Signed by Solomon Marcum M.D. 12/31/2021 8:17 AM Gross Description A. ??Received fresh labeled left shoulder is a 1.4 x 0.9 x 01/01/2022 METH 0.4 cm aggregate of red and campbell fibrous tissue, which is 8:22 AM IT INFRASTRUCTURE CONSULTANT soft. ??All submitted for frozen and permanent sections. Grossed by Nikki Gallardo. Block Summary A Left shoulder 01/01/2022 METH A1 Left shoulder-frozen 8:22 AM IT INFRASTRUCTURE CONSULTANT Interpretation FINAL DIAGNOSIS 01/01/2022 METH 8:22 AM IT INFRASTRUCTURE CONSULTANT A. ??Synovium, left shoulder, excision: ??Synovial tissue with acute inflammation (>5 neutrophils/high power field). Specimen (Source) Anatomical Collection Method Collection Time Re ceived Time Location / / Volume Laterality Tissue (Shoulder, 12/30/2021 2:15 PM Left) IT INFRASTRUCTURE CONSULTANT Narrative This result has an attachment that is no t available. Cyrus Polk M.D. LAB SURG PATH ORDERABLES Performing Organization Address City/State/ZIP Code Phon e Number [facility] - [address] [place], [place] [address] [facility] [address] Laboratories-[facility] [address] Bacteria Cult, Aerobe / Anaerobe+Susc (12/30/2021 2:11 PM IT INFRASTRUCTURE CONSULTANT) [facility] gist Method Time Signature Bacteria Cult, No growth 01/13/2022 DTL Aerobe/Anaerob after 14 4:02 PM IT INFRASTRUCTURE CONSULTANT e+Susc days of incubation. Specimen Anatomical Collection Method Collection Time Receive d Time (Source) Location / / Volume Laterality Shoulder, Left 12/30/2021 2:11 PM 02/02/2 022 3:38 IT INFRASTRUCTURE CONSULTANT PM IT INFRASTRUCTURE CONSULTANT Comment: Specimen Source Site: Tissue #4 Narrative [facility] - 01/13/2022 4:02 PM IT INFRASTRUCTURE CONSULTANT Bacterial Culture: Placed in Bactec aero bic and Bactec anaerobic bottles Cyrus Polk M.D. LAB MICROBIOLOGY - GENERAL O RDERABLES Performing Organization Address City/State/ZIP Code Phon e Number [facility] - [address] [place] [phone] [facility] [place] [address] Laboratories[facility] [address] (ABNORMAL) Bacteria Cult, Aerobe / Anaerobe+Susc (12/30/2021 2:05 PM IT INFRASTRUCTURE CONSULTANT) Component Value Ref Test Analysis Performed At [facility] Range Method Time Signature Bacteria STAPHYLOCOCCUS EPIDERMIDIS 01/11/2022 DT L Cult, Growth after 4 days 7:55 AM IT INFRASTRUCTURE CONSULTANT Aerobe/Anaero (A) be+Susc Comment: Semi-Urgent Result. Semi-Urgent This is a semi-urgent result [facility] Specimen Anatomical Collection Method Collection Time Receive d Time (Source) Location / / Volume Laterality Synovial Fluid, 12/30/2021 2:05 PM 2021 3:17 Left Shoulder IT INFRASTRUCTURE CONSULTANT PM IT INFRASTRUCTURE CONSULTANT Comment: Specimen Source Site: Fluid Narrative [facility] - 01/11/2022 7:55 AM IT INFRASTRUCTURE CONSULTANT Bacterial Culture: Placed in Bactec aero bic [...] - GENERAL O MARY Performing Organization Address City/[facility] Phon e Number [facility] - [address] [place], [place] [address] [place] [phone] [place] [address] Bacteria Cult, Aerobe / Anaerobe+Susc (12/30/2021 2:04 PM IT INFRASTRUCTURE CONSULTANT) [facility] Method Time Signature Bacteria Cult, No growth 01/13/2022 DTL Aerobe/Anaerob after 14 4:02 PM IT INFRASTRUCTURE CONSULTANT e+Susc days of incubation. Specimen Anatomical Collection Method Collection Time Receive d Time (Source) Location / / Volume Laterality Shoulder, Left 12/30/2021 2:04 PM 022 3:34 IT INFRASTRUCTURE CONSULTANT PM IT INFRASTRUCTURE CONSULTANT Comment: Specimen Source Site: Tissue #3 Narrative [facility] - 01/13/2022 4:02 PM IT INFRASTRUCTURE CONSULTANT Bacterial Culture: Placed in Bactec aero bic and Bactec anaerobic bottles Cyrus Polk M.D. LAB MICROBIOLOGY - GENERAL Lebron HERNANDEZ Performing Organization Address City/[facility] Phon e Number [facility] - [address] [place], [place] [address] [place], [place] [phone] [place] [address] Bacteria Cult, Aerobe / Anaerobe+Susc (12/30/2021 2:03 PM IT INFRASTRUCTURE CONSULTANT) [facility] Method Time Signature Bacteria Cult, No growth 01/13/2022 DTL Aerobe/Anaerob after 14 4:02 PM IT INFRASTRUCTURE CONSULTANT e+Susc days of incubation. Specimen Anatomical Collection Method Collection Time Receive d Time (Source) Location / / Volume Laterality Shoulder, Left 12/30/2021 2:03 PM 022 3:37 IT INFRASTRUCTURE CONSULTANT PM IT INFRASTRUCTURE CONSULTANT Comment: Specimen Source Site: Tissue #2 Narrative [facility] - 01/13/2022 4:02 PM IT INFRASTRUCTURE CONSULTANT Bacterial Culture: Placed in Bactec aero bic and Bactec anaerobic bottles Cyrus Polk M.D. LAB MICROBIOLOGY - GENERAL O MARY Performing Organization Address [facility]/ZIP [facility] Phon e Number [facility] - [id number] [place] [address] Bacteria Cult, Aerobe / Anaerobe+Susc (12/30/2021 2:03 PM IT INFRASTRUCTURE CONSULTANT) [facility] Method Time Signature Bacteria Cult, No growth 01/13/2022 DT Aerobe/Anaerob after 14 4:02 PM IT INFRASTRUCTURE CONSULTANT e+Susc days of incubation. Specimen Anatomical Collection Method Collection Time Receive d Time (Source) Location / / Volume Laterality Shoulder, Left 12/30/2021 2:03 PM 022 3:31 IT INFRASTRUCTURE CONSULTANT PM IT INFRASTRUCTURE CONSULTANT Comment: Specimen Source Site: Tissue #1 Narrative [facility] - 01/13/2022 4:02 PM IT INFRASTRUCTURE CONSULTANT Bacterial Culture: Placed in Bactec aero bic and Bactec anaerobic bottles Cyrus Polk M.D. LAB MICROBIOLOGY - GENERAL O MARY Performing Organization Address [facility] Phon e Number [facility] - [address] [place] [phone] documented in this encounter Visit Diagnoses [...] tablet 1,000 mg Given 01/01/2022 11:36 AM IT INFRASTRUCTURE CONSULTANT 1,00 0 mg (TYLENOL) 1,000 mg, oral, Every 6 hours, First dose on Tue12/30/21 at 1800 Given 01/01/2022 6:28 AM IT INFRASTRUCTURE CONSULTANT 1,000 mg Given 12/31/2021 11:51 PM IT INFRASTRUCTURE CONSULTANT 1,000 mg albuterol nebulizer solution 2.5 mg Given 12/31/2021 4:44 PM IT INFRASTRUCTURE CONSULTANT 2.5 mg 2.5 mg, nebulization, Every 6 hours PRN, wheezing, Starting on Tue12/30/21 at 1711, Albuterol nebs were interchanged for albuterol/levalbuterol MDI (same frequency) atorvastatin tablet 80 mg (LIPITOR) Given 12/31/2021 8:57 PM IT INFRASTRUCTURE CONSULTANT 80 mg 80 mg, oral, Daily at bedtime, First dose on Tue12/30/21 at 2100 Given 12/30/2021 9:55 PM IT INFRASTRUCTURE CONSULTANT 80 mg benzonatate capsule 100 mg (TESSALON PER LES) Given 01/01/2022 3:10 AM IT INFRASTRUCTURE CONSULTANT 100 mg 100 mg, oral, 3 times daily PRN, cough, Starting on Tue12/31/21 at 1702, Swallow whole. Do NOT crush, chew or open capsule. Given 12/31/2021 5:39 PM IT INFRASTRUCTURE CONSULTANT 100 mg bupivacaine PF 0.2 % 550 mL in NaCl New Bag 01/01/2022 3:15 PM IT INFRASTRUCTURE CONSULTANT 6 mL/hr 6 mL/hr 0.9% On-Q pain pump (CB004) 6 mL/hr, nerve catheter, Continuous, Starting on Tue01/01/22 at 1500, PACU & Post-Op, Location: Nerve Catheter Location, Nerve Catheter Location: Interscalene, Device: On-Q Pump bupivacaine PF 0.2 % in Rate/Dose Verify 01/01/2022 1:00 AM IT INFRASTRUCTURE CONSULTANT 6 mL/ hr 6 mL/hr NaCl 0.9% 341 mL infusion (MARCAINE) 6 mL/hr, nerve catheter, Continuous, Starting on Tue12/30/21 at 1600, PACU & Post-Op, Nerve Catheter Location: Interscalene, Device: Hospital Infusion Pump Rate/Dose Verify 12/31/2021 12:11 AM IT INFRASTRUCTURE CONSULTANT 6 mL/hr 6 mL/hr New Bag 12/30/2021 3:49 PM IT INFRASTRUCTURE CONSULTANT 6 mL/hr 6 mL/hr buPROPion XL 24 hr tablet 150 mg (WELLBUTRIN Given 02/2022 8:35 AM IT INFRASTRUCTURE CONSULTANT 150 mg XL) 150 mg, oral, Every morning, First dose on Tue12/31/21 at 0900, Swallow whole. Do NOT crush, chew, or split tablet. Given 12/31/2021 8:16 AM IT INFRASTRUCTURE CONSULTANT 150 mg calcium carbonate chewable tablet Given 12/31/2021 11: 46 PM IT INFRASTRUCTURE CONSULTANT 400 mg of calcium 400 mg of calcium (TUMS) 400 mg of calcium, oral, Every 2 hour PRN, indigestion, Starting on Tue12/30/21 at 1711, Doses listed are in mg of elemental calcium. Take with food. 500 mg calcium carbonate contains 200 mg of elemental calcium. Given 12/31/2021 9:15 PM IT INFRASTRUCTURE CONSULTANT 400 mg of calcium carboxymethylcellulose 0.5 % ophthalmic Given 01/01/2022 1:15 AM IT INFRASTRUCTURE CONSULTANT 2 drops solution 2 drop (REFRESH PLUS) 2 drop, both eyes, 4 times daily PRN, dry eyes, Starting on Tue12/30/21 at 1711 Given 12/31/2021 12:31 PM IT INFRASTRUCTURE CONSULTANT 2 drops Given 12/31/2021 12:23 AM IT INFRASTRUCTURE CONSULTANT 2 drops cefTRIAXone in dextrose (iso-osm) IVPB New Bag 01/01/2022 2:38 PM IT INFRASTRUCTURE CONSULTANT 2 g 200 mL/hr 2 g (ROCEPHIN) 2 g, intravenous, at 200 mL/hr, Administer over 15 Minutes, Daily before lunch, First dose on Tue01/01/22 at 1345, Drug Monitoring Program: Pharmacist to adjust medication dosing based on indication and drug clearance factors., Indications: Bone and/or joint infection cetirizine tablet 10 mg (ZyrTEC) Given 01/01/2022 8:35 AM IT INFRASTRUCTURE CONSULTANT 10 mg 10 mg, oral, 2 times daily, First dose on Tue12/30/21 at 2100, Drug Monitoring Program: Pharmacist to adjust medication dosing based on indication and drug clearance factors. Given 12/31/2021 8:57 PM IT INFRASTRUCTURE CONSULTANT 10 mg Given 12/31/2021 8:16 AM IT INFRASTRUCTURE CONSULTANT 10 mg cholecalciferol (vitamin D3) tablet 25 m cg Given 01/01/2022 8:35 AM IT INFRASTRUCTURE CONSULTANT 25 mcg 25 mcg, oral, Daily, First dose on Tue12/31/21 at 0900, cholecalciferol (vitamin D3) orderable was interchanged for cholecalciferol (vitamin D3) tablet/capsule Given 12/31/2021 8:16 AM IT INFRASTRUCTURE CONSULTANT 25 mcg D5W infusion 10-250 mL/hr, intravenous, [...] 5 mg (VALIUM) Given 12/31/2021 12:31 PM IT INFRASTRUCTURE CONSULTANT 5 mg 5 mg, oral, 4 times daily PRN, muscle spasms, Starting on Tue12/30/21 at 2243 Given 12/31/2021 1:59 AM IT INFRASTRUCTURE CONSULTANT 5 mg diphenhydrAMINE capsule 25 mg (BENADRYL) 25 mg, oral, Daily PRN, itching, Starting on Tue 2 at 0854 diphenhydrAMINE capsule 75 mg (BENADRYL) Given 01/01/2022 8:49 AM IT INFRASTRUCTURE CONSULTANT 75 mg 75 mg, oral, Bedtime PRN, sleep, Starting on Tue12/30/21 at 1715 FLUoxetine capsule 80 mg (PROzac) Given 01/01/2022 8:34 AM IT INFRASTRUCTURE CONSULTANT 80 mg 80 mg, oral, Daily, First dose on Tue12/31/21 at 0900, FLUoxetine orderable was interchanged for FLUoxetine tablet/capsule Given 12/31/2021 8:16 AM IT INFRASTRUCTURE CONSULTANT 80 mg fluticasone furoate 100 mcg/actuation Given 01/01/2022 8:[address] 2 puffs inhaler 2 puff (ARNUITY ELLIPTA) 2 puff, inhalation, 2 times daily, First dose on Tue12/30/21 at 2100, fluticasone furoate 100 mcg was interchanged for fluticasone MDI 110 mcg Given 12/31/2021 9:04 PM IT INFRASTRUCTURE CONSULTANT 2 puffs Given 12/31/2021 8:17 AM IT INFRASTRUCTURE CONSULTANT 2 puffs gentamicin powder (for bone Given 12/30/2021 2:40 PM IT INFRASTRUCTURE CONSULTANT 4 vials Left Shoulder cement) As needed, Starting on Tue12/30/21 at 1440, Intra-Op heparin PF flush syringe 50-150 Units 50-150 Units, intravenous, Once as neede d, line care, 50 units (5 mL) to each lumen of non-valved catheters only, Starting on Tue01/01/22 a t 0817, For 1 dose HYDROmorphone (PF) injection 0.4 mg Given 01/01/2022 4:56 AM IT INFRASTRUCTURE CONSULTANT 0.4 mg (DILAUDID) 0.4 mg, intravenous, Every 2 hour PRN, severe pain or score 7-10 of 10, Starting on Tue12/30/21 at 1711, For 5 doses, May administer if pain is greater than 7 after scheduled and PRN regimen exhausted. If pain remains greater than 7, notify primary service. Given 12/31/2021 11:35 AM IT INFRASTRUCTURE CONSULTANT 0.4 mg Given 12/31/2021 4:14 AM IT INFRASTRUCTURE CONSULTANT 0.4 mg ipratropium-albuteroL 0.5-2.5 mg/3 mL nebulizer Given 01/01/2022 3:15 AM IT INFRASTRUCTURE CONSULTANT 3 mL solution 3 mL (DUONEB) 3 mL, nebulization, 4 times daily PRN, shortness of breath, wheezing, Starting on Tue12/30/21 at 1711 lactated ringers Rate/Dose Change 01/01/2022 1:00 AM IT INFRASTRUCTURE CONSULTANT 20 mL/hr 20 mL/hr 75 mL/hr, intravenous, Continuous, Starting on Tue12/30/21 at 1715, Until patient has 500cc po intake New Bag 12/31/2021 11:46 PM IT INFRASTRUCTURE CONSULTANT 75 mL/hr 75 mL/hr Rate/Dose Change 12/31/2021 3:55 AM IT INFRASTRUCTURE CONSULTANT 20 mL/hr 20 mL/hr lactated ringers Continued from OR 12/30/2021 4:00 PM IT INFRASTRUCTURE CONSULTANT 75 mL/hr 75 mL/hr 75 mL/hr, intravenous, Continuous, Starting on Tue12/30/21 at 1600, PACU & Post-Op lamoTRIgine tablet 200 mg (LaMICtaL) Given 01/01/2022 8:34 AM IT INFRASTRUCTURE CONSULTANT 200 mg 200 mg, oral, 2 times daily, First dose on Tue12/30/21 at 2100 Given 12/31/2021 8:56 PM IT INFRASTRUCTURE CONSULTANT 200 mg Given 12/31/2021 8:16 AM IT INFRASTRUCTURE CONSULTANT 200 mg methylene blue 0.5 % (5 mg/mL) Given 12/30/2021 2:39 PM IT INFRASTRUCTURE CONSULTANT 2 mL Left Shoulder injection As needed, [...] 10 mg (ROXICODONE) Given 01/01/2022 2:38 PM IT INFRASTRUCTURE CONSULTANT 10 mg 10 mg, oral, Every 3 hours PRN, severe pain or score 7-10 of 10, Starting on Tue12/31/21 at 1745 Given 01/01/2022 11:35 AM IT INFRASTRUCTURE CONSULTANT 10 mg Given 01/01/2022 7:07 AM IT INFRASTRUCTURE CONSULTANT 10 mg oxyCODONE IR tablet 5 mg (ROXICODONE) 5 mg, oral, Every 3 hours PRN, moderate pain or score 4-6 of 10, Starting on Tue12/31/21 at 1745, If patient is >75 consider changing to 2.5-5mg scale pantoprazole DR tablet 40 mg (PROTONIX) Given 01/01/2022 3:46 PM IT INFRASTRUCTURE CONSULTANT 40 mg 40 mg, oral, 2 times daily before breakfast and dinner, First dose on Tue12/31/21 at 0700, pantoprazole 40 mg oral twice daily was interchanged for esomeprazole 20 or 40 mg oral twice daily Swallow whole. Do NOT crush, chew, or split tablet. Given 01/01/2022 6:29 AM IT INFRASTRUCTURE CONSULTANT 40 mg Given 12/31/2021 4:47 PM IT INFRASTRUCTURE CONSULTANT 40 mg pregabalin capsule 600 mg (LYRICA) Given 01/01/2022 8:34 AM IT INFRASTRUCTURE CONSULTANT 600 mg 600 mg, oral, 2 times daily, First dose on Tue12/30/21 at 2100 Given 12/31/2021 8:56 PM IT INFRASTRUCTURE CONSULTANT 600 mg Given 12/31/2021 8:15 AM IT INFRASTRUCTURE CONSULTANT 600 mg QUEtiapine tablet 50 mg (SEROquel) Given 12/31/2021 8:57 PM IT INFRASTRUCTURE CONSULTANT 50 mg 50 mg, oral, Daily at bedtime, First dose on Tue12/30/21 at 2100 Given 12/30/2021 9:55 PM IT INFRASTRUCTURE CONSULTANT 50 mg sennosides-docusate sodium 8.6-50 mg per Given 01/01/2022 8:35 A M IT INFRASTRUCTURE CONSULTANT 1 tablet tablet 1 tablet (SENOKOT-S) 1 tablet, oral, 2 times daily, First dose on Tue12/30/21 at 2100, Do not give if patient has diarrhea. Given 12/31/2021 8:57 PM IT INFRASTRUCTURE CONSULTANT 1 tablet Given 12/31/2021 8:16 AM IT INFRASTRUCTURE CONSULTANT 1 tablet sodium chloride 0.9 % injection [...] injection 3 mL Given 12/31/2021 8:18 AM IT INFRASTRUCTURE CONSULTANT 3 mL 3 mL, intravenous, Every 12 hours scheduled, First dose on Tue12/30/21 at 2100, PACU & Post-Op, Peripheral Intravenous Catheter and Rapid Infusion Catheter, when no infusion to maintain patency Given 12/30/2021 9:53 PM IT INFRASTRUCTURE CONSULTANT 3 mL vancomycin powder Given 12/30/2021 2:40 PM IT INFRASTRUCTURE CONSULTANT 4 g Left Shoulder As needed, Starting on Tue12/30/21 at 1440, Intra-Op zonisamide capsule 300 mg (ZONEGRAN) Given 01/01/2022 8:35 AM IT INFRASTRUCTURE CONSULTANT 300 mg 300 mg, oral, 2 times daily, First dose on Tue12/30/21 at 2100, Swallow whole. Do NOT crush, chew or open capsule. Given 12/31/2021 8:57 PM IT INFRASTRUCTURE CONSULTANT 300 mg Given 12/31/2021 8:16 AM IT INFRASTRUCTURE CONSULTANT 300 mg documented in this encounter Active and Recently Administered Medications Times are shown in IT INFRASTRUCTURE CONSULTANT. Scheduled Medication Order 12/30/2021 12/31/2021 01/01/2022 acetaminophen [...] 1419 (Given - Provider: Emre Rodriguez APRN, LOOPING INSPECTOR) 2,000 mg (rounded from 1,747.5 mg = [...] dropping tourniquet zonisamide capsule 300 mg (ZONEGRAN) 3263 (Given - Pro vider: Ezequiel Hernandez RBetsy) [...] calcium (TUMS) 2114 (Given - Provider: Fanny Sfiuentes R.N.)234 (Given - Provider: Carole Pérez.S.N., R.N.) 400 mg of calcium, oral, Every 2 hour [place] N, indigestion, Starting on Tue12/30/21 at 1711, [...] mL (D UONEB) 0315 (Given - Provider: Viktoryia Givens R.N.) 3 mL, nebulization, 4 times [...] over 3 days 1 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
--- OUTSIDE RECORDS SUMMARY | 2022-07-06 15:35 | XMS_ITS | Encounter Summary ---
:1965 Author Organization [facility] Address [address] [place] [address] Care Team Providers Name Role Phone Elsewhere, Pcp Primary Care Provider Unavailable Encounter Details Date Type Department Care Team Description 12/29/2021 Hospital Encounter Department of Alfredo Herrera ative Exam; Laboratory Medicine A, O.P.A.-C. Painful Total Joint Arthroplasty Initial (HCC) and Pathology, [address] [place] [address], in [place] [phone] [place] [phone] [place] [address] (Work) [place], [place] [phone] [address] (Fax) [phone] Social History Tobacco Use Types Packs/Day Years [...] you attend congregational or Patient refused 2021 latter day services? [...] THC multivit-min/iron/folic/ Take 1 tablet by 0 [id number] (HAIR, SKIN AND mouth daily. NAILS ADVANCED [...] 12/29/2021 11:34 Results for this RBC AM POWER TOOL REPAIR TECHNICIAN procedure are i n the results section. CBC WITH Routine 12/29/2021 11:34 Preoperative Ex am Results for this DIFFERENTIAL, B AM POWER TOOL REPAIR TECHNICIAN Painful Total Joint proce dure are in Arthroplasty Initial the res ults (HCC) section. TYPE AND SCREEN Routine 12/29/2021 11:34 Preoperative Ex am Results for this AM POWER TOOL REPAIR TECHNICIAN Painful Total Joint procedur e are in Arthroplasty Initial the res ults (HCC) section. BASIC METABOLIC Routine 12/29/2021 11:34 Preoperative Ex am Results for this PANEL, S/P AM POWER TOOL REPAIR TECHNICIAN Painful Total Joint procedur e are in Arthroplasty Initial the res ults (HCC) section. documented in this encounter Results Antibody Screen, RBC (12/29/2021 11:34 AM POWER TOOL REPAIR TECHNICIAN) P athologist Signature Antibody Negative Negative 12/29/2021 DTL Screen 12:59 PM POWER TOOL REPAIR TECHNICIAN Specimen Anatomical Collection Method Collection Time Receive d Time (Source) Location / / Volume Laterality Blood 12/29/2021 11:34 12/29/2021 AM POWER TOOL REPAIR TECHNICIAN 11:58 AM POWER TOOL REPAIR TECHNICIAN Alfredo Kamara LAB BLOOD BANK TEST ORDERABL ES Performing Organization Address City/State/ZIP Code Phon e Number [facility] - [address] [place], [place] [address] [facility] [place] [address] Laboratories-[facility] [address] (ABNORMAL) Basic Metabolic Panel (12/29/2021 11:34 AM POWER TOOL REPAIR TECHNICIAN) P athologist Signature Potassium, S 4.7 3.6 - 5.2 12/29/2021 DTL mmol/L 12:38 PM POWER TOOL REPAIR TECHNICIAN Sodium, S 143 135 - 145 12/29/2021 DTL mmol/L 12:38 PM POWER TOOL REPAIR TECHNICIAN Chloride, S 108 (H) 98 - 107 12/29/2021 DTL mmol/L 12:38 PM POWER TOOL REPAIR TECHNICIAN Bicarbonate, S 24 22 - 29 12/29/2021 DTL mmol/L 12:38 PM POWER TOOL REPAIR TECHNICIAN Anion Gap 11 7 - 15 12/29/2021 DTL 12:38 PM POWER TOOL REPAIR TECHNICIAN BUN (Blood 15 6 - 21 12/29/2021 DTL Urea mg/dL 12:38 PM POWER TOOL REPAIR TECHNICIAN Nitrogen), S Creatinine, S 0.83 0.59 - 12/29/2021 DTL 1.04 mg/dL 12:38 PM POWER TOOL REPAIR TECHNICIAN eGFR-Non 78 >=60 12/29/2021 DTL Black/ mL/min/BSA 12:38 PM POWER TOOL REPAIR TECHNICIAN Greenlandic Comment: ----ADDITIONAL INFORMATION---- Estimated GFR calculated using the 2009 CKD_EPI creatinine equation. eGFR-Black/ 90 >=60 mL/min/BSA 2021 12:38 PM POWER TOOL REPAIR TECHNICIAN DTL Comment: ----ADDITIONAL INFORMATION---- Estimated GFR calculated using the 2009 CKD_EPI creatinine equation. Calcium, Total, S 9.1 8.6 - 10.0 mg/dL 12/29/2021 12:3 8 PM POWER TOOL REPAIR TECHNICIAN DTL Glucose, S 90 70 - 140 mg/dL 12/29/2021 12:38 PM POWER TOOL REPAIR TECHNICIAN DTL Specimen Anatomical Collection Method Collection Time Receive d Time (Source) Location / / Volume Laterality Blood (Blood, 12/29/2021 11:34 12/29/2021 Venous) AM POWER TOOL REPAIR TECHNICIAN 12:13 PM POWER TOOL REPAIR TECHNICIAN Alfredo A Herrera O.P.A.-C. LAB BLOOD ADD-ON Performing Organization Address City/[facility] Phon e Number [facility] - [address] [place] [address] [facility] [place] [address] [facility] 200 [facility] Type and Screen (with reflex Antibody ID) (12/29/2021 11:34 AM POWER TOOL REPAIR TECHNICIAN) [facility] Method Time Signature ABORh A Neg Not applicable 12/29/2021 ETRM 12:59 PM POWER TOOL REPAIR TECHNICIAN Antibody CANCELED 12/29/2021 ETRM Screen 12:59 PM POWER TOOL REPAIR TECHNICIAN Comment: Result canceled by the ancillar y. Type & Screen Expiration 02/26/2022 23:59 12/29/19 22 12:59 PM POWER TOOL REPAIR TECHNICIAN ETRM Testing Location [place] DEFAULT 12/29/2021 11:58 AM POWER TOOL REPAIR TECHNICIAN ETRM Specimen Anatomical Collection Method Collection Time Receive d Time (Source) Location / / Volume Laterality Blood (Blood, 12/29/2021 11:34 12/29/2021 Venous) AM POWER TOOL REPAIR TECHNICIAN 11:58 AM POWER TOOL REPAIR TECHNICIAN Alfredo Kamara LAB BLOOD BANK TEST ORDERABL ES Performing Organization Address [facility] Phon e Number [facility] - [address] [place] [address] [facility] [place] [address] Laboratories[address] (ABNORMAL) CBC with Differential, Blood (12/29/2021 11:34 AM POWER TOOL REPAIR TECHNICIAN) [facility] Method Time Signature Hemoglobin 11.2 (L) 11.6 - 12/29/2021 DTL 15.0 g/dL 12:02 PM POWER TOOL REPAIR TECHNICIAN Hematocrit 34.1 (L) 35.5 - 12/29/2021 DTL 44.9 % 12:02 PM POWER TOOL REPAIR TECHNICIAN Erythrocytes 4.04 3.92 - 12/29/2021 DTL 5.13 12:02 PM POWER TOOL REPAIR TECHNICIAN x10(12)/L MCV 84.4 78.2 - 12/29/2021 DTL 97.9 fL 12:02 PM POWER TOOL REPAIR TECHNICIAN RBC Distrib Width 20.2 (H) 12.2 - 12/29/2021 DTL 16.1 % 12:02 PM POWER TOOL REPAIR TECHNICIAN Platelet Count 324 157 - 371 12/29/2021 DTL x10(9)/L 12:02 PM POWER TOOL REPAIR TECHNICIAN Leukocytes 5.1 3.4 - 9.6 12/29/2021 DTL x10(9)/L 12:02 PM POWER TOOL REPAIR TECHNICIAN Neutrophils 3.08 1.56 - 12/29/2021 DTL 6.45 12:02 PM POWER TOOL REPAIR TECHNICIAN x10(9)/L Lymphocytes 1.39 0.95 - 12/29/2021 DTL 3.07 12:02 PM POWER TOOL REPAIR TECHNICIAN x10(9)/L Monocytes 0.43 0.26 - 12/29/2021 DTL 0.81 12:02 PM POWER TOOL REPAIR TECHNICIAN x10(9)/L Eosinophils 0.17 0.03 - 12/29/2021 DTL 0.48 12:02 PM POWER TOOL REPAIR TECHNICIAN x10(9)/L Basophils 0.05 0.01 - 12/29/2021 DTL 0.08 12:02 PM POWER TOOL REPAIR TECHNICIAN x10(9)/L Specimen Anatomical Collection Method Collection Time Receive d Time (Source) Location / / Volume Laterality Blood (Blood, 12/29/2021 11:34 12/29/2021 Venous) AM POWER TOOL REPAIR TECHNICIAN 11:54 AM POWER TOOL REPAIR TECHNICIAN Alfredo Kamara LAB BLOOD ADD-ON Performing Organization Address City/State/ZIP Code Phon e Number [facility] - [address] [place], [place] [address] [facility] [place] [address] [facility] [address] documented in this encounter Visit Diagnoses Diagnosis Preoperative Exam Painful Total Joint Arthroplasty Initial (HCC) documented in this encounter Additional Health Concerns Assessment Noted Time PHQ-9 Depression Total Score: 16 02/11/2021 12:00 AM C DT documented as of this encounter Care Teams Design Coordinator Relationship Specialty Start Date End Date Elsewhere, Pcp PCP - General Internal Medicine 12/25/21 documented as of this encounter
--- OUTSIDE RECORDS SUMMARY | 2022-07-06 15:35 | XMS_ITS | Encounter Summary ---
:1965 Author Organization [facility] Address [address] [place] [address] Care Team Providers Name Role Phone Unavailable Primary Care Provider Unavailable Reason for Referral Outpatient (Routine) - Closed Specialty Diagnoses / Procedures Referred By Contact Refer red To Contact Anesthesiology Diagnoses Preoperative Exam Painful Total Joint Arthroplasty Initial (HCC) [facility] [address] [place] [phone] Referral ID Status Reason Start Date Expiration Date Visits Requ ested Visits Authorized [id number] Closed 10/13/2021 10/13/2022 1 1 ET MAKING MACHINE OPERATOR Outpatient (Routine) - Closed Specialty Diagnoses / Procedures Referred By Contact Refer red To Contact Orthopedic Surgery Diagnoses Preoperative Exam Painful Total Joint Arthroplasty Initial ([facility]) Alfredo Herrera [facility] Lebron.Fernando-CBritton [address] [place] [address] Referral ID Status Reason Start Date Expiration Date Visits Requ ested Visits Authorized [id number] Closed 10/13/2021 10/13/2022 1 1 ET MAKING MACHINE OPERATOR Reason for Visit Reason Comments pre op orders L verena Encounter Details Date Type Department Care Team Description 10/12/2021 Clinical Communication Department of Jam pre op orders ([facility] Lilian Alex) in [place] [address] [address] [place], [place] 200 [facility] [address] [place], [place] [phone] (Work) [phone] Social History Tobacco Use Types Packs/Day Years [...] or relatives? How often do you attend worship or Patient refused 2021 jewish services? Do you belong to any clubs or No 05/17/2022 organizations such as worship groups, unions, fraternal or athletic groups, or [...] and see me Surgery date: December 30 ET MAKING MACHINE OPERATOR documented in this encounter Plan of Treatment Scheduled Referrals Name Type Priority Associated Diagnoses Order S [facility] Orthopedic Surgery Outpatient Referral Routine Preoperat lalo Exam Expected: Pre Op (clinic) Painful Total Joint 12/29 Arthroplasty Initial (Approx imate), (HCC) Expires: 10/12/2024 Preoperative Outpatient Referral Routine Preoperative Exam Expected: Evaluation NESHA Painful Total Joint 2021 consult (clinic) Arthroplasty Initial (Ap proximate), (HCC) Expires: 10/12/2024 documented as of this encounter Results (ABNORMAL) Basic Metabolic Panel (12/29/2021 11:34 AM COLLET MAKING MACHINE OPERATOR) P athologist Signature Potassium, S 4.7 3.6 - 5.2 12/29/2021 DTL mmol/L 12:38 PM COLLET MAKING MACHINE OPERATOR Sodium, S 143 135 - 145 12/29/2021 DTL mmol/L 12:38 PM COLLET MAKING MACHINE OPERATOR Chloride, S 108 (H) 98 - 107 12/29/2021 DTL mmol/L 12:38 PM COLLET MAKING MACHINE OPERATOR Bicarbonate, S 24 22 - 29 12/29/2021 DTL mmol/L 12:38 PM COLLET MAKING MACHINE OPERATOR Anion Gap 11 7 - 15 12/29/2021 DTL 12:38 PM COLLET MAKING MACHINE OPERATOR BUN (Blood 15 6 - 21 12/29/2021 DTL Urea mg/dL 12:38 PM COLLET MAKING MACHINE OPERATOR Nitrogen), S Creatinine, S 0.83 0.59 - 12/29/2021 DTL 1.04 mg/dL 12:38 PM COLLET MAKING MACHINE OPERATOR eGFR-Non 78 >=60 12/29/2021 DTL Black/ mL/min/BSA 12:38 PM COLLET MAKING MACHINE OPERATOR Zimbabwean Comment: ----ADDITIONAL INFORMATION---- Estimated GFR calculated using the 2009 CKD_EPI creatinine equation. eGFR-Black/ 90 >=60 mL/min/BSA 2021 12:38 PM COLLET MAKING MACHINE OPERATOR DTL Comment: ----ADDITIONAL INFORMATION---- Estimated GFR calculated using the 2009 CKD_EPI creatinine equation. Calcium, Total, S 9.1 8.6 - 10.0 mg/dL 12/29/2021 12:3 8 PM COLLET MAKING MACHINE OPERATOR DTL Glucose, S 90 70 - 140 mg/dL 12/29/2021 12:38 PM COLLET MAKING MACHINE OPERATOR DTL Specimen Anatomical Collection Method Collection Time Receive d Time (Source) Location / / Volume Laterality Blood (Blood, 12/29/2021 11:34 12/29/2021 Venous) AM COLLET MAKING MACHINE OPERATOR 12:13 PM COLLET MAKING MACHINE OPERATOR Alfredo Kamara LAB BLOOD ADD-ON Performing Organization Address City/[facility] Phon e Number [facility] - [address] [place] [address] Laboratories-[address] Type and Screen (with reflex Antibody ID) (12/29/2021 11:34 AM COLLET MAKING MACHINE OPERATOR) [facility] Method Time Signature ABORh A Neg Not applicable 12/29/2021 ETRM 12:59 PM COLLET MAKING MACHINE OPERATOR Antibody CANCELED 12/29/2021 ETRM Screen 12:59 PM COLLET MAKING MACHINE OPERATOR Comment: Result canceled by the ancerick y. Type & Screen Expiration 02/26/2022 23:59 12/29/19 22 12:59 PM COLLET MAKING MACHINE OPERATOR ETRM Testing Location [place] DEFAULT 12/29/2021 11:58 AM COLLET MAKING MACHINE OPERATOR ETRM Specimen Anatomical Collection Method Collection Time Receive d Time (Source) Location / / Volume Laterality Blood (Blood, 12/29/2021 11:34 12/29/2021 Venous) AM COLLET MAKING MACHINE OPERATOR 11:58 AM COLLET MAKING MACHINE OPERATOR Alfredo SchmidtCBritton LAB BLOOD BANK TEST ORDERABL ES Performing Organization Address City/[facility] Phon e Number [facility] - [address] [place] [address] Laboratories[address] (ABNORMAL) CBC with Differential, Blood (12/29/2021 11:34 AM COLLET MAKING MACHINE OPERATOR) [facility] Ardian Method Time Signature Hemoglobin 11.2 (L) 11.6 - 12/29/2021 DTL 15.0 g/dL 12:02 PM COLLET MAKING MACHINE OPERATOR Hematocrit 34.1 (L) 35.5 - 12/29/2021 DTL 44.9 % 12:02 PM COLLET MAKING MACHINE OPERATOR Erythrocytes 4.04 3.92 - 12/29/2021 DTL 5.13 12:02 PM COLLET MAKING MACHINE OPERATOR x10(12)/L MCV 84.4 78.2 - 12/29/2021 DTL 97.9 fL 12:02 PM COLLET MAKING MACHINE OPERATOR RBC Distrib Width 20.2 (H) 12.2 - 12/29/2021 DTL 16.1 % 12:02 PM COLLET MAKING MACHINE OPERATOR Platelet Count 324 157 - 371 12/29/2021 DTL x10(9)/L 12:02 PM COLLET MAKING MACHINE OPERATOR Leukocytes 5.1 3.4 - 9.6 12/29/2021 DTL x10(9)/L 12:02 PM COLLET MAKING MACHINE OPERATOR Neutrophils 3.08 1.56 - 12/29/2021 DTL 6.45 12:02 PM COLLET MAKING MACHINE OPERATOR x10(9)/L Lymphocytes 1.39 0.95 - 12/29/2021 DTL 3.07 12:02 PM COLLET MAKING MACHINE OPERATOR x10(9)/L Monocytes 0.43 0.26 - 12/29/2021 DTL 0.81 12:02 PM COLLET MAKING MACHINE OPERATOR x10(9)/L Eosinophils 0.17 0.03 - 12/29/2021 DTL 0.48 12:02 PM COLLET MAKING MACHINE OPERATOR x10(9)/L Basophils 0.05 0.01 - 12/29/2021 DTL 0.08 12:02 PM COLLET MAKING MACHINE OPERATOR x10(9)/L Specimen Anatomical Collection Method Collection Time Receive d Time (Source) Location / / Volume Laterality Blood (Blood, 12/29/2021 11:34 12/29/2021 Venous) AM COLLET MAKING MACHINE OPERATOR 11:54 AM COLLET MAKING MACHINE OPERATOR Alfredo Kamara LAB BLOOD ADD-ON Performing Organization Address City/State/ZIP Code Phon e Number [facility] - [address] [place], [place] [address] [facility] [place] [address] Laboratories-[facility] [address] SARS Coronavirus 2, Molecular Detection, PCR, Varies Asymptomatic (12/29/2021 11:11 AM COLLET MAKING MACHINE OPERATOR) [facility] Method Time Signature COVID-19, Swab, 12/29/2021 DTL PCR, Source Nasopharynx 4:19 PM COLLET MAKING MACHINE OPERATOR COVID-19, Undetected Undetected 12/29/2021 DTL PCR, Result 4:19 PM COLLET MAKING MACHINE OPERATOR Comment: SARS-CoV-2 RNA absent. This result does not rule out COVID-19 in the patient, as the sensitivity of the test depends o n the timing of the specimen collection and quality of the specimen. Result should be correlated with patient's history and clinical presentat ion. ----ADDITIONAL INFORMATION---- This RT-PCR test using the lark SARS-Co V-2 Assay ( [employer]ybridge) performed on the lark Two Module System has received Emergency Use Authorization (EUA) by the U.S. Food and Drug Administration, and is modified from the web development intern's instructions with a bridging study. Performance characteristics were verifie d by [facility] in a manner consistent with CLIA requirements. Visit the CDC website: https://www.cdc.g ov/coronavirus/ for the most recent guidelines on [facility] virus testing. Fact Sheet for Healthcare Providers: https://www.fda.gov/media/114883/downloa d Fact Sheet for Patients: https://www.fda.gov/media/317606/downloa d Specimen Anatomical Collection Method Collection Time Receive d Time (Source) Location / / Volume Laterality Varies 12/29/2021 11:11 12/29/2021 (Nasopharynx) AM COLLET MAKING MACHINE OPERATOR 12:03 PM COLLET MAKING MACHINE OPERATOR Alfredo Kamara LAB MICROBIOLOGY - GENERAL O RDERABLES Performing Organization Address City/State/ZIP Code Phon e Number [facility] - [address] [place], [place] [address] [facility] [place] [address] Laboratories-[facility] [address] DX Shoulder Left 2+ Views (12/29/2021 10:30 AM COLLET MAKING MACHINE OPERATOR) Anatomical Region Laterality Modality Upper Extremity, Shoulder, Musculoskeletal RST LOS, Left Digital Radiography Musculoskeletal ARZ LOS, Muskuloskeletal FLA LOS Specimen (Source) Anatomical Collection Method Collection Time Re ceived Time Location / / Volume Laterality 12/29/2021 10:53 AM COLLET MAKING MACHINE OPERATOR Impressions 12/29/2021 10:57 AM COLLET MAKING MACHINE OPERATOR Demineralization. Left shoulder arthroplasty revision [...] posterior rib fracture. Narrative 12/29/2021 10:57 AM COLLET MAKING MACHINE OPERATOR EXAM: ??DX SHOULDER LEFT 2+ [...]
--- OUTSIDE RECORDS SUMMARY | 2022-07-06 15:35 | XMS_ITS | Encounter Summary ---
:1965 Author Organization [facility] Address [address] [place] [address] Care Team Providers Name Role Phone Unavailable Primary Care Provider Unavailable Reason for Referral MRI/CAT/PET Scan (Routine) - Closed Specialty Diagnoses / Procedures Referred By Contact Refer red To Contact Radiology Diagnoses Painful Total Joint Arthroplasty Initial ([facility]) Alfredo Herrera [place] Procedures CT Shoulder Left without IV Contrast O.P.A.-C. [address] [place] [phone] Referral ID Status Reason Start Date Expiration Date Visits Requ ested Visits Authorized [id number] Closed 09/07/2021 09/07/2022 1 1 Reason for Visit MRI/CAT/PET Scan (Routine) - Closed Specialty Diagnoses / Procedures Referred By Contact Refer red To Contact Radiology Diagnoses Painful Total Joint Arthroplasty Initial ([facility]) Alfredo Herrera Roc[place] er Region Procedures CT Shoulder Left without IV Contrast O.P.A.-C. [address] [place] [phone] Referral ID Status Reason Start Date Expiration Date Visits Requ ested Visits Authorized [id number] Closed 09/07/2021 09/07/2022 1 1 Encounter Details Date Type Department Care Team Description 09/25/2021 Hospital Encounter Department of Alfredo Herrera Painful Total Joint Radiology in A, O.P.A.-CBritton Arthroplasty Initial [place], [address] [place] [address] ([facility]) [place], [place] [address] [place] [address] [place], [place] [phone] (Work) [phone] Social History Tobacco Use Types Packs/Day Years [...] you attend mormonism or Patient refused 2021 religion services? Do [...]
--- OUTSIDE RECORDS SUMMARY | 2022-07-06 15:35 | XMS_ITS | Encounter Summary ---
:1965 Author Organization [facility] Address [address] [place] [address] Care Team Providers Name Role Phone Elsewhere, Pcp Primary Care Provider Unavailable Reason for Visit Outpatient (Routine) - Closed Specialty Diagnoses / Procedures Referred By Contact Refer red To Contact Anesthesiology Diagnoses Preoperative Exam Painful Total Joint Arthroplasty Initial (HCC) Alfredo Herrera [facility] O.P.A.-C[facility]itton [address] [place] [phone] Referral ID Status Reason Start Date Expiration Date Visits Requ ested Visits Authorized [id number] Closed 10/13/2021 10/13/2022 1 1 Encounter Details Date Type Department Care Team Description 12/29/2021 Comprehensive Visit Preoperative Cayetano Herrera, O.P.A.-CBritton [address] [place] [address] [phone] Preanesthetic Medical Exam (Primary Dx); Evaluation Center Etta Lyle M.D. 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 Do [...] Comments Blood Pressure 125/78 12/29/2021 1:21 PM PORT CRANE OPERATOR Pulse 64 12/29/2021 1:21 PM PORT CRANE OPERATOR Temperature 36.1 ??C (97 ??F) 12/29/2021 1:01 PM PORT CRANE OPERATOR Respiratory Rate - - Oxygen Saturation 97% 12/29/2021 1:21 PM PORT CRANE OPERATOR Inhaled Oxygen Concentration - - Weight 72.6 kg (160 lb 0.9 oz) 12/29/2021 1:01 PM PORT CRANE OPERATOR Height 152 cm (4' 11.84) 12/29/2021 1:01 PM PORT CRANE OPERATOR Body Mass Index 31.42 12/29/2021 1:01 PM PORT CRANE OPERATOR documented in this encounter H&P Notes [...] RCRI score: 1; 6% risk of , MD, or cardiac arrest OBJECTIVE OBJECTIVE PHYSICAL EXAMINATION [...] 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 ([facility]) # Aneurysm Cerebral Unruptured ([facility]) # Dissection Vertebral Artery ([facility]) # 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 - s/p embolization of right vertebral artery dissection with no new strokes following stabilization of her dissection - no current significant neurologic deficits following posterior circulation strokes; reports some balance issues when ambulating - aspirin 325 mg held since 12/21/2021; resume aspirin 325 mg postoperatively # Chronic Pain Syndrome # Fibromyalgia # Bipolar II Disorder ([facility]) # Anxiety Generalized Disorder - s/p spinal cord stimulator placement ([employer], MRI compatible to 1.5 Lucy) - patient [...] with patient the Checklist for Surgical Patients [id number]. Written and verbal instructions given on medication [...] Lyle M.D. PGY-3, Anesthesiology and Perioperative Medicine [facility] CRANE OPERATOR documented in this encounter Plan of [...] COVID19 Pending 12/29/2021 12/29/2021 12/29/2021 4:20 PM PORT CRANE OPERATOR Assessment Noted Time PHQ-9 Depression Total Score: 16 02/11/2021 12:00 AM C DT documented as of this encounter Care Teams Ward Assistant Relationship Specialty Start Date End Date Elsewhere, Pcp PCP - General Internal Medicine 12/25/21 documented as of this encounter
--- OUTSIDE RECORDS SUMMARY | 2022-07-06 15:35 | XMS_ITS | Encounter Summary ---
:1965 Author Organization [facility] Address [address] [place] [address] Care Team Providers Name Role Phone Unavailable Primary Care Provider Unavailable Reason for Visit Reason Comments Communication results Encounter Details Date Type Department Care Team Description 10/05/2021 Clinical Communication Department of Rossy Polk Orthopedic Surgery Cyrus Souza M.D. (results) in [address] 200 [facility] [phone] Social History Tobacco Use Types Packs/Day Years [...] you attend uatsdin or Patient refused 2021 shinto services? Do [...] Cyrus Polk M.D. CT CT Job ID: [id number] ICE PLAN ADMINISTRATOR documented in this encounter Miscellaneous Notes Telephone Encounter - Sosa Laughlin - 10/05/2021 3:17 PM CST Please list patient for 12/30/21. Thank you ICE PLAN ADMINISTRATOR Telephone Encounter - Cyrus Polk M.D. - 10/05/2021 11:37 AM CST Dx: left infected shoulder arthroplasty Procedure: left resection shoulder arthroplasty [id number], NESHA, and see me Surgery date: December 30 Thank you ICE PLAN ADMINISTRATOR Telephone Encounter - Radha Suh - 10/05/2021 11:18 AM CST Ms. Mosquera calls for results of labs, CT and aspiration results ( She is disappointment no one has reached out to her and that she had to call for these) Please call her with results to date ICE PLAN ADMINISTRATOR documented in this encounter Plan of Treatment Not on filedocumented as of this encounter Visit Diagnoses Not on filedocumented in this encounter Additional Health Concerns Assessment Noted Time PHQ-9 Depression Total Score: 16 02/11/2021 12:00 AM C DT documented as of this encounter
--- OUTSIDE RECORDS SUMMARY | 2022-07-06 15:35 | XMS_ITS | Encounter Summary ---
:1965 Author Organization [facility] Address [address] [place] [address] Care Team Providers Name Role Phone Unavailable Primary Care Provider Unavailable Reason for Visit Reason Comments Michel Encounter Details Date Type Department Care Team Description 11/25/2021 Clinical Communication Department of Chani Benjamin Neurologic Surgery in [place] Jang, [place], [place] Ph.D. [address] [facility] 200 [place] [phone] Social History Tobacco Use Types Packs/Day Years [...] you attend hindu or Patient refused 2021 hoahaoism services? Do you belong to any clubs [...] for your help. Boris Neurosurgery Appointment Office [phone] Please respond to the RST YEYO SCHEDULING Pool Thank You MAINFRAME DEVELOPER documented in this encounter Plan of Treatment Not on filedocumented as of this encounter Visit Diagnoses Not on filedocumented in this encounter Additional Health Concerns Assessment Noted Time PHQ-9 Depression Total Score: 16 02/11/2021 12:00 AM C DT documented as of this encounter
--- OUTSIDE RECORDS SUMMARY | 2022-07-06 15:35 | XMS_ITS | Encounter Summary ---
:1965 Author Organization [facility] Address [address] [place] [address] Care Team Providers Name Role Phone Elsewhere, Pcp Primary Care Provider Unavailable Reason for Referral Outpatient (Routine) - Closed Specialty Diagnoses / Procedures Referred By Contact Refer red To Contact Orthopedic Surgery Diagnoses Pain Shoulder Left Alfredo Herrera, [place] [facility] [address] [place] [phone] Referral ID Status Reason Start Date Expiration Date Visits Requ ested Visits Authorized [id number] Closed 12/30/2021 12/30/2022 1 1 NICAL PUBLICATIONS WRITER Reason for Visit Reason Comments Pre-visit Testing Orders Encounter Details Date Type Department Care Team Description 12/29/2021 Clinical Communication Department of Jam Pre- visit Testing Orthopedic Surgery Cyrus Souza M.D. Orders in [address] [place] [phone] [place], [place] [phone] (Work) [phone] Social History Tobacco Use Types Packs/Day Years [...] you attend congregation or Patient refused 2021 caodaism services? Do you belong to any clubs or No 05/17/2022 organizations such as congregation groups, unions, fraApiphany or athletic groups, or school groups? How [...] 12/29/2021 1:06 PM CST Please sign order NICAL PUBLICATIONS WRITER documented in this encounter Plan of Treatment Scheduled Referrals Name Type Priority Associated Order Schedule Diagnoses Orthopedic Surgery Outpatient Referral Routine Pain Shoulder L eft Expected: Pre Op (clinic) 02/24/2022, Expires: 03/28/2023 documented as of this encounter Results SARS CoV-2 RNA, PCR, Varies Asymptomatic (02/25/2022 11:09 AM CDT) [facility] Method Time Signature SARS CoV-2 Swab, 02/25/2022 [...] Drug Administration an d is used per headstart teacher's instructions. Performance characteristics were verified by [facility] in a manner consistent with CLIA requirements. Visit the CDC website: https://www.cdc.g ov/coronavirus/ for the most recent guidelines on Coron avirus testing. Fact Sheet for Healthcare Providers: https://www.fda.gov/media/570896/downloa d Fact Sheet for Patients: https://www.fda.gov/media/197722/downloa d Specimen Anatomical Collection Method Collection Time Receive d Time (Source) Location / / Volume Laterality Varies 02/25/2022 11:09 02/25/2022 (Nasopharynx) AM CDT 11:40 AM CDT Alfredo Kamara LAB MICROBIOLOGY - GENERAL O RDERABLES Performing Organization Address City/State/ZIP Code Phon e Number [facility] - [address] [place], [place] [address] [place] [address] Laboratories-[facility] [address] documented in this encounter Visit Diagnoses Diagnosis Pain Shoulder Left - Primary documented in this encounter Additional Health Concerns Infection Onset Date Last Indicated Resolved Time COVID19 Pending 12/29/2021 12/29/2021 12/29/2021 4:20 PM TECHNICAL PUBLICATIONS WRITER Assessment Noted Time PHQ-9 Depression Total Score: 16 02/11/2021 12:00 AM C DT documented as of this encounter Care Teams Varnishing Machine Operator Relationship Specialty Start Date End Date Elsewhere, Pcp PCP - General Internal Medicine 12/25/21 documented as of this encounter
--- OUTSIDE RECORDS SUMMARY | 2022-07-06 15:35 | XMS_ITS | Encounter Summary ---
:1965 Author Organization [facility] Address [address] [place] [address] Care Team Providers Name Role Phone Unavailable Primary Care Provider Unavailable Encounter Details Date Type Department Care Team Description 10/13/2021 Clinical Communication Preoperative Umu Gan Evaluation Center in [place], [place] [address] [facility] [address] [place] [phone] Social History Tobacco Use Types Packs/Day Years [...] you attend buddhist or Patient refused 2021 yarsani services? Do [...] Umu Gan [facility] - 10/13/2021 11:09 AM STORE CUSTODIAN Surgical Risk Score: 3 Risk Identifiers: 4+ ??? TIA ??? PFO ??? Hx of Arterial Thrombosis ??? Asthma E CUSTODIAN documented in this encounter Plan of Treatment Not on filedocumented as of this encounter Visit Diagnoses Not on filedocumented in this encounter Additional Health Concerns Assessment Noted Time PHQ-9 Depression Total Score: 16 02/11/2021 12:00 AM C DT documented as of this encounter
--- OUTSIDE RECORDS SUMMARY | 2022-07-06 15:35 | XMS_ITS | Encounter Summary ---
:1965 Author Organization [facility] Address [address] [place] [address] Care Team Providers Name Role Phone Unavailable Primary Care Provider Unavailable Encounter Details Date Type Department Care Team Description 11/25/2021 Clinical Communication Department of Guillermo Patterson, Neurologic Surgery in [place], [place] [address] [place] [address] [address] [place] [phone] Social History Tobacco Use Types Packs/Day Years [...] you attend jewish or Patient refused 2021 presybeterian services? Do [...] be seen through ED, or local provider/neurology. R TECH documented in this encounter Plan of Treatment Not on filedocumented as of this encounter Visit Diagnoses Not on filedocumented in this encounter Additional Health Concerns Assessment Noted Time PHQ-9 Depression Total Score: 16 02/11/2021 12:00 AM C DT documented as of this encounter
--- OUTSIDE RECORDS SUMMARY | 2022-07-06 15:35 | XMS_ITS | Encounter Summary ---
:1965 Author Organization [facility] Address [address] [place] [address] Care Team Providers Name Role Phone Unavailable Primary Care Provider Unavailable Reason for Visit Outpatient (Routine) - Closed Specialty Diagnoses / Procedures Referred By Contact Refer red To Contact Neurology Robert Diehl [facility] [address] [place] [address] [phone] Referral ID Status Reason Start Date Expiration Date Visits Requ ested Visits Authorized [id number] Closed 09/15/2020 09/15/2021 1 1 Encounter Details Date Type Department Care Team Description 11/18/2021 Virtual Visit Department of Robert Diehl Stroke Cere brovascular Neurology jimmy Celaya M.D. Accident Personal [place], [place] [address] [place] [address] History (Primary Dx) [address] [place] [phone] Social History Tobacco Use Types Packs/Day Years [...] you attend scientology or Patient refused 2021 oriental orthodox services? [...] 19 pandemic patient not seen in a [id number] manner. This is a 56-year-old woman with [...] antibiotics she has not been seen by [facility] Orthopedics Department who are planning a two [...] by: Robert Diehl M.D. 11/18/21 11:46 AM HOGSHEAD MAT INSPECTOR Diagnosis Plan 1. Stroke Cerebrovascular Accident Personal History HEAD MAT INSPECTOR documented in this encounter Plan of Treatment Not on filedocumented as of this encounter Visit Diagnoses Diagnosis Stroke Cerebrovascular Accident Personal History - Primary documented in this encounter Additional Health Concerns Assessment Noted Time PHQ-9 Depression Total Score: 16 02/11/2021 12:00 AM C DT documented as of this encounter
--- OUTSIDE RECORDS SUMMARY | 2022-07-06 15:35 | XMS_ITS | Encounter Summary ---
:1965 Author Organization [facility] Address [address] [place] [address] Care Team Providers Name Role Phone Elsewhere, Pcp Primary Care Provider Unavailable Encounter Details Date Type Department Care Team Description 12/29/2021 Hospital Encounter Department of Alfredo Herrera ative Exam; Radiology, [place] GonzalesPEmilioCBritton Painful Total Joint Arthroplasty Initial ([facility]) Building, in [address] [place] [phone] [place] [address] [place], [place] (Work) [phone] Social History Tobacco Use [...] you attend cheondoism or Patient refused 2021 pentecostal services? Do [...] THC multivit-min/iron/folic/ Take 1 tablet by 0 [id number] (HAIR, SKIN AND mouth daily. NAILS ADVANCED [...] for this 2+ VIEWS (most inpatients AM INTERNAL CONTROL SPECIALIST Painful Total Joint proc edure are in and all Arthroplasty the results outpatients) Initial (HCC) section. documented in this encounter Results DX Shoulder Left 2+ Views (12/29/2021 10:30 AM INTERNAL CONTROL SPECIALIST) Anatomical Region Laterality Modality Upper Extremity, Shoulder, Musculoskeletal RST LOS, Left Digital Radiography Musculoskeletal ARZ LOS, Muskuloskeletal FLA LOS Specimen (Source) Anatomical Collection Method Collection Time Re ceived Time Location / / Volume Laterality 12/29/2021 10:53 AM INTERNAL CONTROL SPECIALIST Impressions 12/29/2021 10:57 AM INTERNAL CONTROL SPECIALIST Demineralization. Left shoulder arthroplasty revision to a reverse TSA. Developing lucency about the glenoi d component screws when compared back to 11/13/20, compatible with loosening. Pre sumed distal clavicle resection. Incompletely imaged instrumented spinal fusion from the upper cervical spine to the upper thoracic spine. Spinal cord st imulator. At least one old healed left posterior rib fracture. Narrative 12/29/2021 10:57 AM INTERNAL CONTROL SPECIALIST EXAM: ??DX SHOULDER LEFT 2+ VIEWS Procedure [...] COVID19 Pending 12/29/2021 12/29/2021 12/29/2021 4:20 PM INTERNAL CONTROL SPECIALIST Assessment Noted Time PHQ-9 Depression Total Score: 16 02/11/2021 12:00 AM C DT documented as of this encounter Care Teams Senior Software Quality Engineer Relationship Specialty Start Date End Date Elsewhere, Pcp PCP - General Internal Medicine 12/25/21 documented as of this encounter
--- OUTSIDE RECORDS SUMMARY | 2022-07-06 15:36 | XMS_ITS | Encounter Summary ---
:1965 Author Organization [facility] Address [address] [place] [address] Care Team Providers Name Role Phone Unavailable Primary Care Provider Unavailable Reason for Referral Outpatient (Routine) - Closed Specialty Diagnoses / Procedures Referred By Contact Refer red To Contact Diagnoses Painful Total Joint Arthroplasty Initial (HCC) Alfredo Herrera [place] Procedures US Major Joint Aspiration and or Injection Left O.P.A.-C. [address] [place] [address] Referral ID Status Reason Start Date Expiration Date Visits Requ ested Visits Authorized [id number] Closed 09/07/2021 09/07/2022 1 1 Outpatient (Routine) - Closed Specialty Diagnoses / Procedures Referred By Contact Refer red To Contact Diagnoses Painful Total Joint Arthroplasty Initial (HCC) Alfredo Herrera [place] Procedures US Musculoskeletal Shoulder Left O.P.A.-C. [address] [place] [address] Referral ID Status Reason Start Date Expiration Date Visits Requ ested Visits Authorized [id number] Closed 09/07/2021 09/07/2022 1 1 Reason for Visit Outpatient (Routine) - Closed Specialty Diagnoses / Procedures Referred By Contact Refer red To Contact Diagnoses Painful Total Joint Arthroplasty Initial (HCC) Alfredo Herrera [place] Procedures US Major Joint Aspiration and or Injection Left O.P.A.-C. [address] [place] [address] Referral ID Status Reason Start Date Expiration Date Visits Requ ested Visits Authorized [id number] Closed 09/07/2021 09/07/2022 1 1 Encounter Details Date Type Department Care Team Description 09/25/2021 Hospital Encounter Department of Alfredo Herrera Total Joint Radiology in A, O.P.A.-C. Arthroplasty Initial [place], [facility] [address] [facility] [place], [place] [address] [facility] [address] [place], [place] [phone] (Work) [phone] Social History Tobacco Use Types Packs/Day Years [...] you attend yarsani or Patient refused 2021 episcopalian services? Do [...] CDT Joint Arthroplasty this pr ocedure Initial ([facility]) are in the results section. CRYSTAL ID, SYNOVIAL Routine 09/25/2021 1:48 Painful Total Res ults for [place] PM CDT Joint Arthroplasty this proc edure Initial ([facility]) are in the results section. CELL COUNT [...] shoulder joint arthroplasty. COMPARISON: Left shoulder radiographs [facility] 09/23/2021. FINDINGS: Biceps tendon is visualized wi [...] Differential, Body Fluid (09/25/2021 1:48 PM CDT) [facility] Method Time Signature Fluid Type Left 09/25/2021 DHPM Shoulder 4:50 PM CDT Gross Slightly 09/25/2021 DHPM Appearance bloody 4:50 PM CDT Total 21702 /mcL 09/25/2021 DHPM Nucleated 4:50 PM CDT Cells Comment: ----REFERENCE VALUE---- Synovial: <150 /mcL Peritoneal: <500 /mcL Pleural: <500 /mcL Pericardial: <500 /mcL ----ADDITIONAL INFORMATION---- This test has been modified from the man ufacturer's instructions. Its performance characteri stics were determined by [facility] in a manner co nsistent with [...] Address City/State/ZIP Code Phon e Number [facility] - [address] [place], [place] [address] [facility] [place] [place] [address] [facility] [address] [facility] Acid Fast Smear For Mycobacterium (09/25/2021 1:48 PM CDT) [facility] Method Time Signature Acid Fast Smear Negative. 09/26/2021 DTL For Mycobacterium 2:58 PM CDT Specimen Anatomical Collection Method Collection Time Receive d Time (Source) Location / / Volume Laterality Synovial Fluid, 09/25/2021 1:48 PM 2020 3:42 Left Shoulder CDT PM CDT Comment: Specimen Source Site: Fluid Narrative [facility] - 09/26/2021 2:58 PM CDT Fungal and Mycobacteria specimens plated for culture, volume inadequate for optimal recovery. Alfredo Kamara LAB MICROBIOLOGY - GENERAL O RDERABLES Performing Organization Address City/State/ZIP Code Phon e Number [facility] - [address] [place], [place] [address] [place] [address] [place] [address] [facility] Gram Stain (09/25/2021 1:48 PM CDT) [facility] Method Time Signature Gram Stain No organisms [...] Address City/State/ZIP Code Phon e Number [facility] - [address] [place], [place] [address] [facility] [place] [place] [address] [facility] [address] (ABNORMAL) Bacterial Culture, Aerobic + Susc (09/25/2021 1:48 PM CDT) Component Value Ref Test Analysis Performed At Patholo gist Range Method Time Signature Bacterial STAPHYLOCOCCUS EPIDERMIDIS 09/30/2021 DT L Culture, [facility] [place] 2:35 PM CDT Aerobic + (A) Susc Comment: Semi-Urgent Result. Semi-Urgent This is a semi-urgent result [facility] - ([facility]) [facility] S Specimen Anatomical Collection Method Collection Time Receive d Time (Source) Location / / Volume Laterality Fluid (Synovial 09/25/2021 1:48 PM 2020 3:42 Fluid, Left CDT PM CDT Shoulder) Comment: Specimen Source Site: Fluid Narrative [facility] - [facility] - 09/30/2021 2:35 PM CDT Fungal and [...] Address City/State/ZIP Code Phon e Number [facility] - [address] [place] [address] [place] [address] Bacterial Culture, Anaerobic + Susc (09/25/2021 1:48 PM CDT) [facility] Method Time Signature Bacterial No growth 10/09/2021 DTL Culture, after 14 7:41 AM NATIONAL SECRETARY Anaerobic + days of Susc incubation. Specimen Anatomical Collection Method Collection Time Receive d Time (Source) Location / / Volume Laterality Fluid (Synovial 09/25/2021 1:48 PM 2020 3:42 Fluid, Left CDT PM CDT Shoulder) Comment: Specimen Source Site: Fluid Narrative [facility] - 10/09/2021 7:41 AM NATIONAL SECRETARY Fungal and Mycobacteria specimens plated for culture, volume inadequate for optimal recovery. Alfredo Kamara LAB MICROBIOLOGY - GENERAL O RDERASARAH Performing Organization Address City/[facility] Phon e Number [facility] - [id number] [place] [address] (ABNORMAL) Broad Range Bacteria PCR+Sequencing (09/25/2021 1:48 PM CDT) Component Value Ref Test Analysis Performed At [facility] Method Time Signature Broad Range This test was developed and its performance characteri stics 10/06/2021 DTL Bacteria determined by [facility] in a manner consistent with 1:24 PM NATIONAL SECRETARY PCR+Sequencin CLIA requirements. This test has not been cleared or g approved by the U.S. Food and Drug Administration. (A) Broad Range STAPHYLOCOCCUS EPIDERMIDIS 10/06/2021 DTL Bacteria DNA detected 1:24 PM NATIONAL SECRETARY PCR+Sequencin (A) g Comment: Semi-Urgent Result. Semi-Urgent This is a semi-urgent result [facility] - () [facility] Specimen Anatomical Collection Method Collection Time Receive d Time (Source) Location / / Volume Laterality Fluid (Synovial 09/25/2021 1:48 PM 2020 3:42 Fluid, Left CDT PM CDT Shoulder) Comment: Specimen Source Site: Fluid Narrative [facility] - 10/06/2021 1:24 PM NATIONAL SECRETARY Fungal and Mycobacteria specimens plated for culture, volume inadequate for optimal recovery. Alfredo Kamara LAB MICROBIOLOGY - GENERAL O RDERABLES Performing Organization Address City/State/ZIP Code Phon e Number [facility] - [address] [place], [place] [address] [place], [place] [address] [place] [address] Crystal Identification, Synovial Fluid (09/25/2021 1:48 PM CDT) Analysis Performed At Patho logist Time Signature Crystal ID, None seen None seen 09/25/2021 [facility] Synovial Fl 4:56 PM CDT Reviewed by: Tech 09/25/2021 [facility] 4:56 PM CDT Specimen Anatomical Collection Method Collection Time Receive d Time (Source) Location / / Volume Laterality Fluid (Synovial 09/25/2021 1:48 PM 2020 3:27 Fluid, Left CDT PM CDT Shoulder) Alfredo Kamara LAB BODY FLUIDS AND STOOLS O PATERASARAH Performing Organization Address City/[facility]/ZIP Code Phon e Number [facility] - [phone] [place] [address] Fungal Culture, Routine (09/25/2021 1:48 PM CDT) [facility] Method Time Signature Fungal No growth 10/20/2021 DT Culture, after 24 1:01 AM NATIONAL SECRETARY Routine days of incubation. Specimen Anatomical Collection Method Collection Time Receive d Time (Source) Location / / Volume Laterality Fluid (Synovial 09/25/2021 1:48 PM 2020 3:42 Fluid, Left CDT PM CDT Shoulder) Comment: Specimen Source Site: Fluid Narrative [facility] - [facility] - 10/20/2021 1:01 AM NATIONAL SECRETARY Fungal and Mycobacteria specimens plated for culture, volume inadequate for optimal recovery. Alfredo Kamara LAB MICROBIOLOGY - GENERAL O RDERABLES Performing Organization Address City/[facility]/ZIP Code Phon e Number [facility] - [address] [place], [place] [address] [place] [address] [facility] [address] [facility] Mycobacterial Culture (09/25/2021 1:48 PM CDT) [facility] gist Method Time Signature Mycobacterial No growth 11/07/2021 DTL Culture after 42 1:03 AM NATIONAL SECRETARY days of incubation . Specimen Anatomical Collection Method Collection Time Receive d Time (Source) Location / / Volume Laterality Fluid (Synovial 09/25/2021 1:48 PM 2020 3:42 Fluid, Left CDT PM CDT Shoulder) Comment: Specimen Source Site: Fluid Narrative [facility] - [facility] - 11/07/2021 1:03 AM NATIONAL SECRETARY Fungal and Mycobacteria specimens plated for culture, volume inadequate for optimal recovery. Alfredo Kamara LAB MICROBIOLOGY - GENERAL O RDERABLES Performing Organization Address City/State/ZIP Code Phon e Number [address] [address] [place] [address] [facility] 200 [facility] documented in this encounter Visit Diagnoses [...]
--- OUTSIDE RECORDS SUMMARY | 2022-07-06 15:36 | XMS_ITS | Encounter Summary ---
:1965 Author Organization [facility] Address [address] [place] [address] Care Team Providers Name Role Phone Unavailable Primary Care Provider Unavailable Reason for Visit Reason Comments Pre-visit Intake Encounter Details Date Type Department Care Team Description 04/15/2021 Clinical Communication Department of Robert Diehl e-visit Intake Neurology in Lilian Celaya [facility], [facility] [place], [place] [address] [place] [phone] [place], [place] [phone] (Work) [phone] Social History Tobacco Use Types Packs/Day Years [...] you attend alevism or Patient refused 2021 church services? Do [...]
--- OUTSIDE RECORDS SUMMARY | 2022-07-06 15:36 | XMS_ITS | Encounter Summary ---
:1965 Author Organization [facility] Address [address] [place] [address] Care Team Providers Name Role Phone Unavailable Primary Care Provider Unavailable Reason for Referral Outpatient (Routine) - Closed Specialty Diagnoses / Procedures Referred By Contact Refer red To Contact Diagnoses Dissociation Scapholunate Left Michael Downs M.D. [facility] Procedures ORS Cast Room Visit [address] [place] [phone] Referral ID Status Reason Start Date Expiration Date Visits Requ ested Visits Authorized [id number] Closed 05/08/2021 05/08/2022 1 1 Reason for Visit Reason Comments Follow-up Outpatient (Routine) - Closed Specialty Diagnoses / Procedures Referred By Contact Refer red To Contact Diagnoses Dissociation Scapholunate Left Michael Downs M.D. [facility] Procedures ORS Cast Room Visit [address] [place] [phone] Referral ID Status Reason Start Date Expiration Date Visits Requ ested Visits Authorized [id number] Closed 05/08/2021 05/08/2022 1 1 Encounter Details Date Type Department Care Team Description 05/08/2021 Hospital Encounter Department of Paul Downs M.D. [address] [place] [phone] Dissociation Orthopedic Surgery Dario Noel M.D. [address] [place] [phone] Scapkimiunate Left in [place], [place] [address] [place] [address] Social History Tobacco Use Types Packs/Day Years [...] you attend episcopalian or Patient refused 2021 cheondoism services? Do [...] short-arm cast was applied by the castroom sterile technician - The patient is nonweightbearing bearing [...]
--- OUTSIDE RECORDS SUMMARY | 2022-07-06 15:36 | XMS_ITS | Encounter Summary ---
:1965 Author Organization [facility] Address [address] [place] [address] Care Team Providers Name Role Phone Unavailable Primary Care Provider Unavailable Reason for Visit Reason Comments Pain Appointment Request (Routine) - Closed Specialty Diagnoses / Procedures Referred By Contact Refer red To Contact Orthopedic Surgery Diagnoses Arthroplasty Total Shoulder Replacement Status Post Left David Cohn M.D. [address] [facility] [address] [place] [address] Referral ID Status Reason Start Date Expiration Date Visits Requ ested Visits Authorized [id number] Closed 09/04/2021 09/04/2022 1 1 Encounter Details Date Type Department Care Team Description 09/23/2021 Comprehensive Visit Department of Cyrus Polk Pain Shoulder Left Orthopedic Surgery Lilian Souza (Primary Dx) in [address] [place] [phone] [place], [place] [phone] (Work) [phone] Social History Tobacco Use Types Packs/Day Years [...] many times do you More than three abrhaan es a week 05/17/2022 talk on the phone with family, friends, or neighbors? How often do you get together with friends More than three t imes a week 05/17/2022 or relatives? How often do you attend synagogue or Patient refused 2021 denominational services? Do you belong to any clubs or No 05/17/2022 organizations such as synagogue groups, unions, [employer] or athletic groups, or school groups? How [...]
--- OUTSIDE RECORDS SUMMARY | 2022-07-06 15:36 | XMS_ITS | Encounter Summary ---
:1965 Author Organization [facility] Address [address] [place] [address] Care Team Providers Name Role Phone Unavailable Primary Care Provider Unavailable Reason for Visit Reason Comments Nicotine Dependence Encounter Details Date Type Department Care Team Description 07/30/2021 Clinical Communication Department of [facility], Carolyn Mccarthy cotine Dependence Nicotine M.S., Dependence, C.T.T.S., [facility] in [address] [place] [phone] [place], [place] [phone] (Work) [phone] Social History Tobacco Use Types Packs/Day Years [...] you attend spiritism or Patient refused 2021 adventism services? Do [...]
--- OUTSIDE RECORDS SUMMARY | 2022-07-06 15:36 | XMS_ITS | Encounter Summary ---
:1965 Author Organization [facility] Address 200 [place] [address] Care Team Providers Name Role Phone Unavailable Primary Care Provider Unavailable Reason for Referral Outpatient (Routine) - Closed Specialty Diagnoses / Procedures Referred By Contact Refer red To Contact Diagnoses Painful Total Joint Arthroplasty Initial (HCC) Alfredo Herrera [place] Procedures US Major Joint Aspiration and or Injection Left O.P.A.-C. 200 [place] [address] Referral ID Status Reason Start Date Expiration Date Visits Requ ested Visits Authorized [id number] Closed 09/07/2021 09/07/2022 1 1 Outpatient (Routine) - Closed Specialty Diagnoses / Procedures Referred By Contact Refer red To Contact Diagnoses Painful Total Joint Arthroplasty Initial (HCC) Alfredo Herrera [place] Procedures US Musculoskeletal Shoulder Left O.P.A.-C. 200 [place] [address] Referral ID Status Reason Start Date Expiration Date Visits Requ ested Visits Authorized [id number] Closed 09/07/2021 09/07/2022 1 1 MRI/CAT/PET Scan (Routine) - Closed Specialty Diagnoses / Procedures Referred By Contact Refer red To Contact Radiology Diagnoses Painful Total Joint Arthroplasty Initial (HCC) Alfredo Herrera [place] Procedures CT Shoulder Left without IV Contrast O.P.A.-C. [address] [place] [address] Referral ID Status Reason Start Date Expiration Date Visits Requ ested Visits Authorized [id number] Closed 09/07/2021 09/07/2022 1 1 Reason for Visit Reason Comments Pre-visit Testing Orders L shldr - prev. TSA Encounter Details Date Type Department Care Team Description 09/07/2021 Clinical Communication Department of Jam, Pre- visit Testing Orthopedic Surgery Cyrus Souza M.D. Orders (L shldr - in [address] prev. TSA) [place], [place] [address] [place] [phone] [place], [place] [phone] (Work) [phone] Social History Tobacco Use Types Packs/Day Years [...] you attend voodoo or Patient refused 2021 sabianist services? Do [...] joint arthroplasty. COMPARISON: Left shoulder radiographs da mayr 09/23/2021. FINDINGS: Biceps tendon is visualized wi [...] PROCEDURES Mycobacterial Culture (09/25/2021 1:48 PM CDT) [facility] Method Time Signature Mycobacterial No growth 11/07/2021 DTL Culture after 42 1:03 AM [facility] days of incubation . Specimen Anatomical Collection Method Collection Time Receive d Time (Source) Location / / Volume Laterality Fluid (Synovial 09/25/2021 1:48 PM 2020 3:42 Fluid, Left CDT PM CDT Shoulder) Comment: Specimen Source Site: Fluid Narrative [facility] - [facility] - 11/07/2021 1:03 AM [facility]PP[facility] Fungal and Mycobacteria specimens plated for culture, volume inadequate for optimal recovery. Alfredo Kamara LAB MICROBIOLOGY - GENERAL O RDERABLES Performing Organization Address City/State/ZIP Code Phon e Number [facility] - [address] [place], [place] [address] [facility] [place] [address] [facility] [address] Fungal Culture, Routine (09/25/2021 1:48 PM CDT) [facility] Method Time Signature Fungal No growth 10/20/2021 DTL Culture, after 24 1:01 AM [facility]PP[facility] Routine days of incubation. Specimen Anatomical Collection Method Collection Time Receive d Time (Source) Location / / Volume Laterality Fluid (Synovial 09/25/2021 1:48 PM 2020 3:42 Fluid, Left CDT PM CDT Shoulder) Comment: Specimen Source Site: Fluid Narrative [facility] - 10/20/2021 1:01 AM [facility] Fungal and Mycobacteria specimens plated for culture, volume inadequate for optimal recovery. Alfredo Kamara LAB MICROBIOLOGY - GENERAL O RDERABLES Performing Organization Address [facility] Phon e Number [facility] - [address] [place], [place] [address] [facility] [place] [address] [facility]-[address] Crystal Identification, Synovial Fluid (09/25/2021 1:48 PM CDT) [facility] Time Signature Crystal ID, None seen None seen 09/25/2021 [facility] Synovial Fl 4:56 PM CDT Reviewed by: Tech 09/25/2021 [facility] 4:56 PM CDT Specimen Anatomical Collection Method Collection Time Receive d Time (Source) Location / / Volume Laterality Fluid (Synovial 09/25/2021 1:48 PM 2020 3:27 Fluid, Left CDT PM CDT Shoulder) Alfredo Kamara LAB BODY FLUIDS AND STOOLS O RDERABLES Performing Organization Address City/[facility] Phon e Number [facility] - [address] [place], [place] [address] [place] [address] (ABNORMAL) Broad Range Bacteria PCR+Sequencing (09/25/2021 1:48 PM CDT) Component Value Ref Test Analysis Performed At [facility] gist Range Method Time Signature Broad Range This test was developed and its performance characteri stics 10/06/2021 DTL Bacteria determined by [facility] in a manner consistent with 1:24 PM CHILI PEPPER GRINDER PCR+Sequencin CLIA requirements. This test has not been cleared or g approved by the U.S. Food and Drug Administration. (A) Broad Range STAPHYLOCOCCUS EPIDERMIDIS 10/06/2021 DTL Bacteria DNA detected 1:24 PM [facility]IL[facility] PEPP[facility] GRIND[facility] PCR+Sequencin (A) g Comment: Semi-Urgent Result. Semi-Urgent This is a semi-urgent result [facility] - () [facility] Specimen Anatomical Collection Method Collection Time Receive d Time (Source) Location / / Volume Laterality Fluid (Synovial 09/25/2021 1:48 PM 2020 3:42 Fluid, Left CDT PM CDT Shoulder) Comment: Specimen Source Site: Fluid Narrative [facility] - 10/06/2021 1:24 PM [facility] Fungal and Mycobacteria specimens plated for culture, volume inadequate for optimal recovery. Alfredo Kamara LAB MICROBIOLOGY - GENERAL O MARY Performing Organization Address [facility] Phon e Number [facility] - [address] Bacterial Culture, Anaerobic + Susc (09/25/2021 1:48 PM CDT) [facility] Method Time Signature Bacterial No growth 10/09/2021 DTL Culture, after 14 7:41 AM [facility]I [facility]PPER GRINDER Anaerobic + days of Susc incubation. Specimen Anatomical Collection Method Collection Time Receive d Time (Source) Location / / Volume Laterality Fluid (Synovial 09/25/2021 1:48 PM 2020 3:42 Fluid, Left CDT PM CDT Shoulder) Comment: Specimen Source Site: Fluid Narrative [facility] - 10/09/2021 7:41 AM [facility] Fungal and Mycobacteria specimens plated for culture, volume inadequate for optimal recovery. Alfredo Kamara LAB MICROBIOLOGY - GENERAL O MARY Performing Organization Address City/[facility] Phon e Number [facility] - [address] (ABNORMAL) Bacterial Culture, Aerobic + Susc (09/25/2021 1:48 PM CDT) Component Value Ref Test Analysis Performed At [facility] Range Method Time Signature Bacterial STAPHYLOCOCCUS EPIDERMIDIS 09/30/2021 DT L Culture, One Rebuck 2:35 PM CDT Aerobic + (A) Susc Comment: Semi-Urgent Result. Semi-Urgent This is a semi-urgent result [facility] () [facility] Specimen Anatomical Collection Method Collection Time Receive d Time (Source) Location / / Volume Laterality Fluid (Synovial 09/25/2021 1:48 PM 2020 3:42 Fluid, Left CDT PM CDT Shoulder) Comment: Specimen Source Site: Fluid Narrative [facility] - 09/30/2021 2:35 PM CDT [...] [facility] [address] [place], [place] [address] [place] [address] [facility] [address] Gram Stain (09/25/2021 1:48 [...] [facility] [address] [place], [place] [address] [facility] [place] [address] [facility] [address] Shoulder Left [...] (ABNORMAL) Sedimentation Rate (09/23/2021 9:07 AM CDT) [facility] gist Method Time Signature Sedimentation 31 (H) 2 - 22 09/23/2021 DTL Rate, B mm/h 10:46 AM CDT Specimen Anatomical Collection Method Collection Time Receive d Time (Source) Location / / Volume Laterality Blood (Blood, 09/23/2021 9:07 AM 09/23/20 21 9:30 Venous) CDT AM CDT Alfredo Kamara LAB BLOOD ADD-ON Performing Organization Address [facility] Phon e Number [facility] - [address] [place], [place] [address] [facility] [place] [address] CRP (C-Reactive Protein) (09/23/2021 9:07 AM CDT) P athologist Signature C-Reactive <3.0 <=8.0 mg/L 09/23/2021 DTL Protein (CRP), 10:30 AM CDT S Specimen Anatomical Collection Method Collection Time Receive d Time (Source) Location / / Volume Laterality Blood (Blood, 09/23/2021 9:07 AM 09/23/20 21 9:57 Venous) CDT AM CDT Alfredo Kamara LAB BLOOD ADD-ON Performing Organization Address [facility] Phon e Number [facility] - [address] [place], [place] [phone] [place] [address] (ABNORMAL) CBC with Differential, Blood (09/23/2021 9:07 [...] [facility] [address] [place], [place] [address] [facility] [place] [address] [facility] [address] [...]
--- OUTSIDE RECORDS SUMMARY | 2022-07-06 15:36 | XMS_ITS | Encounter Summary ---
:1965 Author Organization [facility] Address [address] [place] [address] Care Team Providers Name Role Phone Unavailable Primary Care Provider Unavailable Reason for Visit MRI/CAT/PET Scan (Routine) - Canceled Specialty Diagnoses / Procedures Referred By Contact Refer red To Contact Radiology Diagnoses Aneurysm Cerebral Unruptured (HCC) Robert Diehl M.D. [facility] Procedures MR Brain Angiogram without IV Contrast [address] [place] [phone] Referral ID Status Reason Start Date Expiration Date Visits V isits Requested Authorized [id number] Canceled 09/15/2020 09/15/2021 1 1 Encounter Details Date Type Department Care Team Description 09/18/2021 Hospital Encounter Department of Robert Diehl ed (Patient: Radiology in Lilian Celaya Request) [place], [place] [address] [facility] [address] [place] [phone] Social History Tobacco Use Types Packs/Day Years [...] you attend orthodox or Patient refused 2021 gnosticism services? Do you belong to any clubs or No 05/17/2022 organizations such as orthodox groups, unions, fraTilt or athletic groups, or school groups? How [...]
--- OUTSIDE RECORDS SUMMARY | 2022-07-06 15:36 | XMS_ITS | Encounter Summary ---
:1965 Author Organization [facility] Address [address] [place] [address] Care Team Providers Name Role Phone Unavailable Primary Care Provider Unavailable Encounter Details Date Type Department Care Team Description 09/23/2021 Hospital Encounter Department of Alfredo Herrera Total Joint Radiology, Anh Gonzales Arthroplasty Initial Building, in [address] [place] [address] ([facility]) [facility] [phone] [place] [address] [place], [place] (Work) [phone] Social History Tobacco Use Types Packs/Day Years [...] you attend orthodoxy or Patient refused 2021 restoration services? Do [...]
--- OUTSIDE RECORDS SUMMARY | 2022-07-06 15:36 | XMS_ITS | Encounter Summary ---
:1965 Author Organization [facility] Address [address] [place] [address] Care Team Providers Name Role Phone Unavailable Primary Care Provider Unavailable Reason for Visit Reason Comments Med Refill Encounter Details Date Type Department Care Team Description 06/04/2021 Refill Department of Orthopedic Pulos, Dario Alejo M.D. Med Refill Surgery in [address] [phone] [place] [address] [place] [phone] [phone] Social History Tobacco Use Types Packs/Day Years [...] you attend congregation or Patient refused 2021 episcopalian services? Do [...]
--- OUTSIDE RECORDS SUMMARY | 2022-07-06 15:36 | XMS_ITS | Encounter Summary ---
:1965 Author Organization [facility] Address [address] [place] [address] Care Team Providers Name Role Phone Unavailable Primary Care Provider Unavailable Reason for Referral Outpatient (Routine) - Closed Specialty Diagnoses / Procedures Referred By Contact Refer red To Contact Orthopedic Surgery Michael Noble [facility] [address] [place] [phone] Referral ID Status Reason Start Date Expiration Date Visits Requ ested Visits Authorized [id number] Closed 05/04/2021 05/04/2022 1 1 Scheduling Instructions Pulos Encounter Details Date Type Department Care Team Description 05/04/2021 Orders Only Department of Orthopedic Mirna Noble Surgery in [facility] C. [address] [place] [phone] (Wo rk) Social History Tobacco Use Types [...] you attend nondenominational or Patient refused 2021 zoroastrianism services? Do you belong to any clubs or No 05/17/2022 organizations such as nondenominational groups, unions, fraHonest Buildings or athletic groups, or school groups? How [...]
--- OUTSIDE RECORDS SUMMARY | 2022-07-06 15:36 | XMS_ITS | Encounter Summary ---
:1965 Author Organization [facility] Address [address] [place] [address] Care Team Providers Name Role Phone Unavailable Primary Care Provider Unavailable Reason for Visit Reason Comments Nicotine Dependence Encounter Details Date Type Department Care Team Description 07/16/2021 Clinical Communication Department of [facility], Carolyn Mccarthy cotine Dependence Nicotine M.S., Dependence, C.T.T.S., [facility] in [address] [place] [phone] [place], [place] [phone] (Work) [phone] Social History Tobacco Use Types Packs/Day Years [...] you attend episcopalian or Patient refused 2021 congregational services? Do [...]
--- OUTSIDE RECORDS SUMMARY | 2022-07-06 15:36 | XMS_ITS | Encounter Summary ---
:1965 Author Organization [facility] Address [address] [place] [address] Care Team Providers Name Role Phone Unavailable Primary Care Provider Unavailable Reason for Visit Physical Therapy (Routine) - Closed Specialty Diagnoses / Procedures Referred By Contact Refer red To Contact Diagnoses Dissociation Scapholunate Left Dario Noel M.D. [facility] Procedures PT or OT eval and treat (first available) [address] [place] [phone] Referral ID Status Reason Start Date Expiration Date Visits Requ ested Visits Authorized [id number] Closed 06/08/2021 06/08/2022 99 99 Encounter Details Date Type Department Care Team Description 06/08/2021 Clinical Support Department of Physical German Noel M.D. [address] [place] [phone] Pain Wrist Left (Primary Dx); Medicine and Veena Quevedo M.S., C.H.T., O.T. [address] [place] [phone] Dissociation Scapholunate Left Rehabilitation in [place], [place] [address] [place] [phone] Social History Tobacco Use Types Packs/Day [...] you attend latter-day or Patient refused 2021 taoism services? Do [...] (HCC) ??? Nicotine Dependence Unspecified ??? Other Network Specialist Current Drug Therapy Past Surgical History: Procedure [...] the following home instruction handouts: Splint Receipt [id number]. Active Hand Exercises (Six Pack) [id number]. Active Wrist Exercises [id number] Assessment Clinical Impression: The patient tolerated the [...]
--- OUTSIDE RECORDS SUMMARY | 2022-07-06 15:36 | XMS_ITS | Encounter Summary ---
:1965 Author Organization [facility] Address [address] [place] [address] Care Team Providers Name Role Phone Unavailable Primary Care Provider Unavailable Reason for Referral Outpatient (Routine) - Closed Specialty Diagnoses / Procedures Referred By Contact Refer red To Contact Orthopedic Surgery Dario Noel M .D. [facility] 200 [place] [address] Referral ID Status Reason Start Date Expiration Date Visits Requ ested Visits Authorized [id number] Closed 06/08/2021 06/08/2022 1 1 Physical Therapy (Routine) - Closed Specialty Diagnoses / Procedures Referred By Contact Refer red To Contact Diagnoses Dissociation Scapholunate Left Dario Noel M.D. [facility] Procedures PT or OT eval and treat (first available) [address] [place] [phone] Referral ID Status Reason Start Date Expiration Date Visits Requ ested Visits Authorized [id number] Closed 06/08/2021 06/08/2022 99 99 Outpatient (Routine) - Closed Specialty Diagnoses / Procedures Referred By Contact Refer red To Contact Diagnoses Dissociation Scapholunate Left Michael Downs M.D. [facility] Procedures ORS Cast Room Visit [address] [place] [phone] Referral ID Status Reason Start Date Expiration Date Visits Requ ested Visits Authorized [id number] Closed 05/08/2021 05/08/2022 1 1 Reason for Visit Reason Comments Cast Check Follow-up Outpatient (Routine) - Closed Specialty Diagnoses / Procedures Referred By Contact Refer red To Contact Diagnoses Dissociation Scapholunate Left Michael Downs M.D. [facility] Procedures ORS Cast Room Visit [address] [place] [phone] Referral ID Status Reason Start Date Expiration Date Visits Requ ested Visits Authorized [id number] Closed 05/08/2021 05/08/2022 1 1 Encounter Details Date Type Department Care Team Description 06/08/2021 Hospital Encounter Department of Paul Downs M.D. [address] [place] [phone] Dissociation Orthopedic Surgery Dario Noel M.D. [address] [place] [phone] Scapholunate Left in [place], [place] [address] [place] [phone] Social History Tobacco Use Types Packs/Day Years [...] you attend catholic or Patient refused 2021 zoroastrianism services? Do [...] documented as of this encounter Procedure Dario Christopher M.D. - 06/08/2021 11:00 AM CDT HAND [...]
--- OUTSIDE RECORDS SUMMARY | 2022-07-06 15:36 | XMS_ITS | Encounter Summary ---
:[address] [facility] Address [address] [place] [address] Care Team Providers Name Role Phone Unavailable Primary Care Provider Unavailable Reason for Referral Outpatient (Routine) - Closed Specialty Diagnoses / Procedures Referred By Contact Refer red To Contact Diagnoses Dissociation Scapholunate Left Michael Downs M.D. [facility] Procedures ORS Cast Room Visit [address] [place] [phone] Referral ID Status Reason Start Date Expiration Date Visits Requ ested Visits Authorized [id number] Closed 05/08/2021 05/08/2022 1 1 Outpatient (Routine) - Closed Specialty Diagnoses / Procedures Referred By Contact Refer red To Contact Diagnoses Dissociation Scapholunate Left Michael Downs M.D. [facility] Procedures ORS Cast Room Visit [address] [place] [phone] Referral ID Status Reason Start Date Expiration Date Visits Requ ested Visits Authorized [id number] Closed 05/08/2021 05/08/2022 1 1 Reason for Visit Reason Onset Date Comments Left Without Being Seen 07/17/2021 Outpatient (Routine) - Closed Specialty Diagnoses / Procedures Referred By Contact Refer red To Contact [facility]opedic [facility] [address] [place] [phone] Referral ID Status Reason Start Date Expiration Date Visits Requ ested Visits Authorized [id number] Closed 05/04/2021 05/04/2022 1 1 Encounter Details Date Type Department Care Team Description 05/08/2021 Office Visit Department of Pullazaro, Dario Alejo, Dissocia tion Scapholunate Left (Primary Dx); Orthopedic Surgery in M.D. Procedure And Treatment Not Carried Out Due To Patient Leaving Prior To Being Seen By Health Care Provider [place], [place] [address] [facility] 200 [place] [phone] Social History Tobacco Use Types Packs/Day Years [...] you attend baptist or Patient refused 2021 protestant services? Do [...]
--- OUTSIDE RECORDS SUMMARY | 2022-07-06 15:36 | XMS_ITS | Encounter Summary ---
:1965 Author Organization [facility] Address [address] [place] [address] Care Team Providers Name Role Phone Unavailable Primary Care Provider Unavailable Encounter Details Date Type Department Care Team Description 05/04/2021 Clinical Communication Department of Dario Noel , Orthopedic Surgery in [place], [place] [address] [place] [address] 200 [place] [phone] Social History Tobacco Use Types Packs/Day Years [...] you attend methodist or Patient refused 2021 anglican services? Do [...]
--- OUTSIDE RECORDS SUMMARY | 2022-07-06 15:36 | XMS_ITS | Encounter Summary ---
:1965 Author Organization [facility] Address [address] [place] [address] Care Team Providers Name Role Phone Unavailable Primary Care Provider Unavailable Encounter Details Date Type Department Care Team Description 09/23/2021 Hospital Encounter Department of Alfredo Herrera Total Joint Laboratory Medicine A, O.PEmilioCBritton Arthroplasty Initial and Pathology, [address] [place] [address] ([facility]) [facility] in [facility] [address] [place] [phone] 200 [facility] (Work) [place], [place] [phone] (Fax) [phone] Social History Tobacco Use Types Packs/Day Years [...] you attend rastafarian or Patient refused 2021 worship services? Do [...] (ABNORMAL) Sedimentation Rate (09/23/2021 9:07 AM CDT) [facility] Method Time Signature Sedimentation 31 (H) 2 - 22 09/23/2021 DTL Rate, B mm/h 10:46 AM CDT Specimen Anatomical Collection Method Collection Time Receive d Time (Source) Location / / Volume Laterality Blood (Blood, 09/23/2021 9:07 AM 09/23/20 9:30 Venous) CDT AM CDT Alfredo Kamara LAB BLOOD ADD-ON Performing Organization Address City/[facility] Phon e Number [facility] - 200 [place], [place] [address] [place] [address] CRP (C-Reactive Protein) (09/23/2021 9:07 AM CDT) athologist Signature C-Reactive <3.0 <=8.0 mg/L 09/23/2021 DTL Protein (CRP), 10:30 AM CDT S Specimen Anatomical Collection Method Collection Time Receive d Time (Source) Location / / Volume Laterality Blood (Blood, 09/23/2021 9:07 AM 09/23/20 9:57 Venous) CDT AM CDT Alfredo Kamara LAB BLOOD ADD-ON Performing Organization Address City/[facility] Phon e Number [facility] - 200 [place], [place] [address] [place] [id number] [place] [address] (ABNORMAL) CBC with Differential, Blood (09/23/2021 9:07 AM CDT) [facility] Method Time Signature Hemoglobin 10.1 [...] Address City/State/ZIP Code Phon e Number [facility] - [address] [place], [place] [address] [facility] [place] [address] Laboratories-[facility] [address] documented in this encounter Visit Diagnoses Diagnosis Painful Total Joint Arthroplasty Initial (HCC) documented in this encounter Additional Health Concerns Assessment Noted Time PHQ-9 Depression Total Score: 16 02/11/2021 12:00 AM C DT documented as of this encounter
--- OUTSIDE RECORDS SUMMARY | 2022-07-06 15:36 | XMS_ITS | Encounter Summary ---
:1965 Author Organization [facility] Address [address] [place] [address] Care Team Providers Name Role Phone Unavailable Primary Care Provider Unavailable Reason for Visit Reason Comments pain medication Encounter Details Date Type Department Care Team Description 06/04/2021 Clinical Communication Department of Pullaz[place], Dario willard medication Orthopedic Surgery Lilian Alejo in [place], [facility] [place], [place] [address] [place] [address] [place], [place] [phone] (Work) [phone] Social History Tobacco Use Types Packs/Day Years [...] you attend rastafarian or Patient refused 2021 church services? Do [...] meds/scripts. Patient would like a call - [phone] documented in this encounter Plan of Treatment Not on filedocumented as of this encounter Visit Diagnoses Not on filedocumented in this encounter Additional Health Concerns Assessment Noted Time PHQ-9 Depression Total Score: 16 02/11/2021 12:00 AM C DT documented as of this encounter
--- OUTSIDE RECORDS SUMMARY | 2022-07-06 15:36 | XMS_ITS | Encounter Summary ---
:1965 Author Organization [facility] Address [address] [place] [address] Care Team Providers Name Role Phone Unavailable Primary Care Provider Unavailable Reason for Visit Reason Comments Nicotine Dependence Encounter Details Date Type Department Care Team Description 07/24/2021 Clinical Communication Department of [facility], Carolyn Mccarthy cotine Dependence Nicotine M.S., Dependence, C.T.T.S., [facility], L.P.C.C. in [address] [place] [address] [place], [place] [phone] (Work) [phone] Social History Tobacco Use Types Packs/Day Years [...] you attend holiness or Patient refused 2021 latter-day services? Do [...]
--- OUTSIDE RECORDS SUMMARY | 2022-07-06 15:36 | XMS_ITS | Encounter Summary ---
:1965 Author Organization [facility] Address [address] [place] [address] Care Team Providers Name Role Phone Unavailable Primary Care Provider Unavailable Reason for Referral Outpatient (Routine) - Closed Specialty Diagnoses / Procedures Referred By Contact Refer red To Contact Diagnoses Dissociation Scapholunate Left Michael Downs M.D. [facility] Procedures ORS Cast Room Visit [address] [place] [phone] Referral ID Status Reason Start Date Expiration Date Visits Requ ested Visits Authorized [id number] Closed 03/24/2021 03/24/2022 1 1 Reason for Visit Reason Comments Follow-up Outpatient (Routine) - Closed Specialty Diagnoses / Procedures Referred By Contact Refer red To Contact Diagnoses Dissociation Scapholunate Left Michael Downs M.D. [facility] Procedures ORS Cast Room Visit [address] [place] [phone] Referral ID Status Reason Start Date Expiration Date Visits Requ ested Visits Authorized [id number] Closed 03/24/2021 03/24/2022 1 1 Encounter Details Date Type Department Care Team Description 03/24/2021 Hospital Encounter Department of Paul Downs M.D. [address] [place] [phone] Dissociation Orthopedic Surgery Dario Noel M.D. [address] [place] [phone] Scapkimiunate Left in [place], [place] [address] [place] [address] Social History Tobacco Use Types Packs/Day Years [...] you attend restorationist or Patient refused 2021 anabaptist services? Do [...] with 70/60 degrees on the contralateral side. Internet E Commerce Specialist strength of 10 kg compared to 23 [...] short-arm cast was applied by the castroom geophysical data technician - The patient is nonweightbearing bearing [...] 70/60 degrees on the contr alateral side. ??Internet E Commerce Specialist strength of 10 kg compared to 23 [...] ??The clenched fist view was obtained of Clicktivated hands, but unfortunately is difficult to assess [...] A short-arm cast was applied by the al radha geophysical data technician - The patient is nonweightbearing bearin [...]
--- OUTSIDE RECORDS SUMMARY | 2022-07-06 15:37 | XMS_ITS | Encounter Summary ---
:1965 Author Organization [facility] Address [address] [place] [address] Care Team Providers Name Role Phone Unavailable Primary Care Provider Unavailable Reason for Referral Outpatient (Routine) - Closed Specialty Diagnoses / Procedures Referred By Contact Refer red To Contact Diagnoses Pain Wrist Left Michael Noble Jr., [facility] Procedures PM Device interrogation (clinic) P.A.-C. [address] [place] [phone] Referral ID Status Reason Start Date Expiration Date Visits Requ ested Visits Authorized [id number] Closed 03/17/2021 03/17/2022 1 1 RI/CAT/PET Scan (Routine) - Closed Specialty Diagnoses / Procedures Referred By Contact Refer red To Contact Radiology Diagnoses Pain Wrist Left Michael Noble Jr., [facility] Procedures MR Wrist Left without IV Contrast P.A.-C. 200 [place], [place] [address] Referral ID Status Reason Start Date Expiration Date Visits Requ ested Visits Authorized [id number] Closed 03/17/2021 03/17/2022 1 1 Encounter Details Date Type Department Care Team Description 03/17/2021 Orders Only Department of Michael Noble Wris t Left Orthopedic Surgery in Tona Patel Jr. (Primary Dx) [place], [place] [address] [place] [phone] [phone] Social History Tobacco Use Types Packs/Day Years [...] you attend temple or Patient refused 2021 sabianist services? Do you belong to any clubs or No 05/17/2022 organizations such as temple groups, unions, fraternal or athletic groups, or [...]
--- OUTSIDE RECORDS SUMMARY | 2022-07-06 15:37 | XMS_ITS | Encounter Summary ---
:1965 Author Organization [facility] Address 200 [place] [address] Care Team Providers Name Role Phone Unavailable Primary Care Provider Unavailable Reason for Referral Outpatient (Routine) - Closed Specialty Diagnoses / Procedures Referred By Contact Refer red To Contact Neurological Surgery Jeannette Cote [place] [facility] Lilian 200 [place] [address] Referral ID Status Reason Start Date Expiration Date Visits Requ ested Visits Authorized [id number] Closed 02/17/2021 02/17/2022 1 1 Scheduling Instructions Please schedule with Chief A Neurosurger y Service (Dr. Suhail Benjamin). 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 [facility] Procedures CT Head Neck Angiogram with IV Contrast 200 [place] [address] Referral ID Status Reason Start Date Expiration Date Visits Requ ested Visits Authorized [id number] Closed 02/17/2021 02/17/2022 1 1 Encounter Details Date Type Department Care Team Description 02/17/2021 Orders Only Department of Jeannette Cote Cerebral Infarction Neurologic Surgery jimmy Souza M.D. Due To Embolism Right [place], [place] [address] [facility] Vertebral Artery (HCC) [address] [place], [place] (Primary Dx) [place] [address] [phone] Social History Tobacco Use Types Packs/Day Years [...] you attend caodaism or Patient refused 2021 nondenominational services? Do [...] Neuroradiology ARZ LOS, Neuroradiology T omography FLA [facility] Specimen (Source) Anatomical [...] ane urysms. 3. 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 Otherwise [place] is intact. Dolichoectasia of [...] 2 mm left supraclinoid aneurysm (557). Otherwise [place] is intact. Dolichoectasia of [...] ane urysms. 3. 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 Jeannette NIELSON [...]
--- OUTSIDE RECORDS SUMMARY | 2022-07-06 15:37 | XMS_ITS | Encounter Summary ---
:1965 Author Organization [facility] Address [address] [place] [address] Care Team Providers Name Role Phone Unavailable Primary Care Provider Unavailable Reason for Visit Reason Comments Nicotine Dependence Encounter Details Date Type Department Care Team Description 03/10/2021 Clinical Communication Department of [facility], Carolyn Mccarthy cotine Dependence Nicotine M.S., Dependence, C.T.T.S., [facility], L.P.C.C. in [address] [place] [address] [place], [place] [phone] (Work) [phone] Social History Tobacco Use Types Packs/Day Years [...] you attend anabaptism or Patient refused 2021 islam services? Do [...]
--- OUTSIDE RECORDS SUMMARY | 2022-07-06 15:37 | XMS_ITS | Encounter Summary ---
:1965 Author Organization [facility] Address [address] [place] [address] Care Team Providers Name Role Phone Unavailable Primary Care Provider Unavailable Reason for Referral MRI/CAT/PET Scan (Routine) - Closed Specialty Diagnoses / Procedures Referred By Contact Refer red To Contact Radiology Diagnoses Pain Wrist Left Michael Noble Jr., [facility] Procedures MR Wrist Left without IV Contrast P.A.-C. 200 [place] [address] Referral ID Status Reason Start Date Expiration Date Visits Requ ested Visits Authorized [id number] Closed 03/17/2021 03/17/2022 1 1 Reason for Visit MRI/CAT/PET Scan (Routine) - Closed Specialty Diagnoses / Procedures Referred By Contact Refer red To Contact Radiology Diagnoses Pain Wrist Left Michael Noble Jr., [facility] Procedures MR Wrist Left without IV Contrast P.A.-C. [address] [place] [phone] Referral ID Status Reason Start Date Expiration Date Visits Requ ested Visits Authorized [id number] Closed 03/17/2021 03/17/2022 1 1 Encounter Details Date Type Department Care Team Description 03/24/2021 Hospital Encounter Department of Michael Noble Wrist Left Radiology jimmy Patel Jr., P.A.-C. [place], [place] 200 [facility] [address] [place] [phone] Social History Tobacco Use Types Packs/Day Years [...] you attend hindu or Patient refused 2021 worship services? Do [...]
--- OUTSIDE RECORDS SUMMARY | 2022-07-06 15:37 | XMS_ITS | Encounter Summary ---
:1965 Author Organization [facility] Address [address] [place] [address] Care Team Providers Name Role Phone Unavailable Primary Care Provider Unavailable Reason for Visit Reason Comments Follow-up [facility] Patient Encounter Details Date Type Department Care Team Description 02/25/2021 Clinical Communication [facility] Neurology jimmy Celaya M.D. Patient) [place], [facility] [address] [place], [place] [address] [place] [address] [place], [place] [phone] (Work) [phone] Social History Tobacco Use Types Packs/Day Years [...] or relatives? How often do you attend shinto or Patient refused 2021 latter day services? Do you belong to any clubs or No 05/17/2022 organizations such as shinto groups, unions, fraternal or athletic groups, or [...] so I advised she report to the [facility] as soon as possible to be [...]
--- OUTSIDE RECORDS SUMMARY | 2022-07-06 15:37 | XMS_ITS | Encounter Summary ---
:1965 Author Organization [facility] Address [address] [place] [address] Care Team Providers Name Role Phone Unavailable Primary Care Provider Unavailable Reason for Visit Reason Comments Vertigo and vision problems [facility] Encounter Details Date Type Department Care Team Description 02/18/2021 Clinical Communication Department of Fazal, Robert mendosa and vision Neurology in Lilian Celaya problems ([facility]) [place], [facility] [address] [place], [place] [address] [place] [address] [place], [place] [phone] (Work) [phone] Social History Tobacco Use Types Packs/Day Years [...] you attend shinto or Patient refused 2021 cheondoism services? Do [...]
--- OUTSIDE RECORDS SUMMARY | 2022-07-06 15:37 | XMS_ITS | Encounter Summary ---
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 [facility] Procedures CT Head Neck Angiogram with IV Contrast 200 [place], [place] [phone] Referral ID Status Reason Start Date Expiration Date Visits Requ ested Visits Authorized [id number] Closed 02/17/2021 02/17/2022 1 1 Encounter Details Date Type Department Care Team Description 03/12/2021 Hospital Encounter Department of Jeannette Cote ebral Infarction Radiology jimmy Souza M.D. Due To Embolism [place], 200 [facility] Right Vertebral [place], [place] Artery (HCC) [address] [address] [place], [place] [phone] (Work) [phone] Social History Tobacco Use Types Packs/Day Years [...] you attend yarsani or Patient refused 2021 bahai services? Do [...] Neuroradiology ARZ LOS, Neuroradiology T omography FLA [facility] Specimen (Source) Anatomical Collection Method [...] ane urysms. 3. 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 Otherwise [place] is intact. 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 Otherwise [place] is intact. Dolichoectasia of [...] ane urysms. 3. 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 Jeannette NIELSON [...]
--- OUTSIDE RECORDS SUMMARY | 2022-07-06 15:37 | XMS_ITS | Encounter Summary ---
:1965 Author Organization [facility] Address [address] [place] [address] Care Team Providers Name Role Phone Unavailable Primary Care Provider Unavailable Reason for Visit Reason Comments Pre-visit Intake Encounter Details Date Type Department Care Team Description 03/11/2021 Clinical Communication Department of Sourav Pre- visit Intake Neurologic Surgery Lilian Jang, in [place], Ph.D. [place] [address] [place] [phone] Social History Tobacco Use Types Packs/Day Years [...]
--- OUTSIDE RECORDS SUMMARY | 2022-07-06 15:37 | XMS_ITS | Encounter Summary ---
:1965 Author Organization [facility] Address [address] [place] [address] Care Team Providers Name Role Phone Unavailable Primary Care Provider Unavailable Encounter Details Date Type Department Care Team Description 03/11/2021 Clinical Communication Department of Ana Segura Orthopedic Surgery in [place], [place] [address] [place] [phone] Social History Tobacco Use Types Packs/Day Years [...] you attend holiness or Patient refused 2021 jewish services? Do [...] Patient would like to be seen in [place]. Referral line to [place] provided to angela batista. Patient aware she will call for apptointment. Telephone Encounter - Jerica Gee L.P.N. - 03/13/2021 9:09 AM CDT Left message to call clinic back. Needs to see a hand surgeon. Telephone Encounter - Christal Abraham L.P.N. - 03/12/2021 3:21 PM CDT Left message for patient to call back. She can contact [place], [place], or sarath frye if she choses. Telephone Encounter - Clemente Schofield M.D. - 03/12/2021 11:23 AM CDT She should see a hand surgeon Telephone Encounter - Esperanza Stratton - 03/11/2021 9:33 AM CDT Reason for Communication: Patient is calling in stating that she is being referred to be seen for a brake in her LEFT hand. Patient is stating that [facility] in [facility] is requesting for patient to be seen by our orthopedic department. Patient is wanting to be seen in [place]. Unable to find any encounters regarding a [...]
--- OUTSIDE RECORDS SUMMARY | 2022-07-06 15:37 | XMS_ITS | Encounter Summary ---
:1965 Author Organization [facility] Address [address] [place] [address] Care Team Providers Name Role Phone Unavailable Primary Care Provider Unavailable Reason for Visit Reason Comments [facility] Follow-up Encounter Details Date Type Department Care Team Description 02/19/2021 Clinical Communication Department of [facility], [facility] Neurology in Monica Alvarado R.N. Follow-up [place], [place] [address] [place] [address] Social History Tobacco Use Types [...] you attend voodoo or Patient refused 2021 sikhism services? Do [...] reports she has not yet picked up [id number] ASA daily and 80 mg Atorvastatin at [...]
--- OUTSIDE RECORDS SUMMARY | 2022-07-06 15:37 | XMS_ITS | Encounter Summary ---
:1965 Author Organization [facility] Address [address] [place] [address] Care Team Providers Name Role Phone Unavailable Primary Care Provider Unavailable Reason for Visit Reason Comments Pre-scheduling Questionnaire Hand Pre-Scheduling Qu estionnaire Encounter Details Date Type Department Care Team Description 03/16/2021 Clinical Department of Prescheduling, Pre-scheduli ng Communication Orthopedic Surgery Provider Question elizabeth ( in [place], Hand Pre-Sched uling [place] Questionnaire) [address] [place] [phone] Social History Tobacco Use Types Packs/Day Years [...] you attend advent or Patient refused 2021 nondenominational services? Do [...]
--- OUTSIDE RECORDS SUMMARY | 2022-07-06 15:37 | XMS_ITS | Encounter Summary ---
:1965 Author Organization [facility] Address [address] [place] [address] Care Team Providers Name Role Phone Unavailable Primary Care Provider Unavailable Reason for Referral Outpatient (Routine) - Closed Specialty Diagnoses / Procedures Referred By Contact Refer red To Contact Diagnoses Dissociation Scapholunate Left Michael Downs M.D. [facility] Procedures ORS Cast Room Visit 200 [address] [place] [address] Referral ID Status Reason Start Date Expiration Date Visits Requ ested Visits Authorized [id number] Closed 03/24/2021 03/24/2022 1 1 Outpatient (Routine) - Closed Specialty Diagnoses / Procedures Referred By Contact Refer red To Contact Diagnoses Dissociation Scapholunate Left Michael Downs M.D. [facility] Procedures ORS Cast Room Visit [address] [place] [address] Referral ID Status Reason Start Date Expiration Date Visits Requ ested Visits Authorized [id number] Closed 03/24/2021 03/24/2022 1 1 Reason for Visit Reason Comments Pain Appointment Request (Routine) - Closed Specialty Diagnoses / Procedures Referred By Contact Refer red To Contact Orthopedic Surgery Diagnoses Fracture Wrist Hand Closed Initial Referral ID Status Reason Start Date Expiration Date Visits Requ ested Visits Authorized [id number] Closed 03/16/2021 03/16/2022 1 1 Encounter Details Date Type Department Care Team Description 03/24/2021 Admin Visit Department of Dario Noel Dissocia tion Orthopedic Surgery in M.D. Scapholunate Left [place], [place] 200 [facility] (Primary Dx) [address] [place] [phone] Social History Tobacco Use Types Packs/Day Years [...] 70/60 degrees on the contr alateral side. ??Neonatal Icu Coordinator strength of 10 kg compared to 23 [...] cast was applied by the kevin garcia missile and missile checkout technician - The patient is nonweightbearing bearin [...]
--- OUTSIDE RECORDS SUMMARY | 2022-07-06 15:37 | XMS_ITS | Encounter Summary ---
:1965 Author Organization [facility] Address [address] [place] [address] Care Team Providers Name Role Phone Unavailable Primary Care Provider Unavailable Reason for Visit Outpatient (Routine) - Closed Specialty Diagnoses / Procedures Referred By Contact Refer red To Contact Neurological Surgery Jeannette [address] [place] [address] [place] M.D. [address] [place] [phone] Referral ID Status Reason Start Date Expiration Date Visits Requ ested Visits Authorized [id number] Closed 02/17/2021 02/17/2022 1 1 Encounter Details Date Type Department Care Team Description 03/12/2021 Office Visit Department of Gonzalez Benjamin Neurologic Surgery in [place] Jang, Cinthya castorena ([facility]) (Primary [place], [place] Ph.D. Dx) [address] [place] [address] [place] [phone] Social History Tobacco Use Types Packs/Day [...] 05/17/2022 organizations such as temple groups, unions, fraSafetyCertified or athletic groups, or school groups? How [...]
--- OUTSIDE RECORDS SUMMARY | 2022-07-06 15:37 | XMS_ITS | Encounter Summary ---
:1965 Author Organization [facility] Address [address] [place] [address] Care Team Providers Name Role Phone Unavailable Primary Care Provider Unavailable Reason for Visit Reason Comments Communication Encounter Details Date Type Department Care Team Description 02/19/2021 Clinical Communication Department of Rossy Benjamin Neurologic Surgery in [place], [place] Ph.D. [address] [place] [address] 200 [place] [phone] Social History Tobacco Use Types Packs/Day Years [...] you attend hinduism or Patient refused 2021 roman catholic services? [...]
--- OUTSIDE RECORDS SUMMARY | 2022-07-06 15:38 | XMS_ITS | Encounter Summary ---
:1965 Author Organization [facility] Address [address] [place] [address] Care Team Providers Name Role Phone Unavailable Primary Care Provider Unavailable Reason for Referral MRI/CAT/PET Scan (Routine) - Closed Specialty Diagnoses / Procedures Referred By Contact Refer red To Contact Radiology Diagnoses Ataxia Robert Diehl M.D. [facility] Procedures CT Head Neck Angiogram with IV Contrast [address] [place], [place] [phone] Referral ID Status Reason Start Date Expiration Date Visits Requ ested Visits Authorized [id number] Closed 12/31/2020 12/31/2021 1 1 CRUST MIXER Reason for Visit MRI/CAT/PET Scan (Routine) - Closed Specialty Diagnoses / Procedures Referred By Contact Refer red To Contact Radiology Diagnoses Ataxia Robert Diehl M.D. [facility] Procedures CT Head Neck Angiogram with IV Contrast [address] [place], [place] [phone] Referral ID Status Reason Start Date Expiration Date Visits Requ ested Visits Authorized [id number] Closed 12/31/2020 12/31/2021 1 1 Encounter Details Date Type Department Care Team Description 01/30/2021 Hospital Encounter Department of Radiology [place] Diehl, Ataxia in [facility] raúl Quintana [address] [facility] [address] [place] [address] [place], [place] [phone] (Wo rk) Social History Tobacco Use Types [...] you attend congregation or Patient refused 2021 cheondoism services? Do [...] this ANGIOGRAM WITH IV (most inpatients PM PIE CRUST MIXER proced ure are in CONTRAST and all the results outpatients) section. documented in this encounter Results CT Head Neck Angiogram with IV Contrast (01/30/2021 3:24 PM PIE CRUST MIXER) Anatomical Region Laterality Modality Head and Neck, Neuroradiology RST LOS, N/A C omputed Tomography, Computed Neuroradiology ARZ LOS, Neuroradiology T omography FLA LOS Specimen (Source) Anatomical Collection Method Collection Time Re ceived Time Location / / Volume Laterality 01/30/2021 2:25 PM PIE CRUST MIXER Impressions 01/30/2021 3:18 PM PIE CRUST MIXER 1. 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 Slightly decreased high-grade stenosis a t the V3/4 junction with increased flow in the distal V4 segment. 2. Evolving, now chronic right cerebella r infarct. 3. 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 Narrative 01/30/2021 3:18 PM PIE CRUST MIXER EXAM: CT HEAD NECK ANGIOGRAM WITH IV [...] normal caliber bilater al MCAs, ACAs and nurse companion. Patent anterior and right posterior communicating arteri [...] normal caliber bilater al MCAs, ACAs and nurse companion. Patent anterior and right posterior communicating arteri [...] mg iodine/mL solution Given 01/30/2021 2:29 PM PIE CRUST MIXER 1 00 mL 1-200 mL (OMNIPAQUE) 1-200 mL, intravenous, Once in imaging, contrast, Starting on Tue01/30/21 at 1355, For 1 dose, Imaging Protocol Orders, Dose per Radiant Medication Guidelines sodium chloride (PF) 0.9 % injection 1-1 00 mL Given 01/30/2021 2:29 PM PIE CRUST MIXER 35 mL 1-100 mL, intravenous, Once, On Tue01/30/21 at 1400, For 1 dose, Imaging Protocol Orders documented in this encounter Additional Health Concerns Assessment Noted Time PHQ-9 Depression Total Score: 5 04/05/2019 8:00 AM CDT documented as of this encounter
--- OUTSIDE RECORDS SUMMARY | 2022-07-06 15:38 | XMS_ITS | Encounter Summary ---
:1965 Author Organization [facility] Address [address] [place] [address] Care Team Providers Name Role Phone Unavailable Primary Care Provider Unavailable Encounter Details Date Type Department Care Team Description 02/11/2021 Ancillary Procedure Department of Radiology Ridge Vega in [facility] raúl Quintana 200 [facility] 200 [place] [phone] (Wo rk) Social History Tobacco Use Types [...] you attend taoism or Patient refused 2021 faith services? Do [...] bilateral thalami (series 3 image 36), bilateral IT APPLICATIONS ANALYST 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 bilateral thalami (series 3 image 36), bilateral IT APPLICATIONS ANALYST 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 bilateral thalami (series 3 image 36), bilateral IT APPLICATIONS ANALYST 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 bilateral thalami (series 3 image 36), bilateral IT APPLICATIONS ANALYST 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 bilateral thalami (series 3 image 36), bilateral IT APPLICATIONS ANALYST 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 bilateral thalami (series 3 image 36), bilateral IT APPLICATIONS ANALYST 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
--- OUTSIDE RECORDS SUMMARY | 2022-07-06 15:38 | XMS_ITS | Encounter Summary ---
:1965 Author Organization [facility] Address [address] [place] [address] Care Team Providers Name Role Phone Unavailable Primary Care Provider Unavailable Encounter Details Date Type Department Care Team Description 02/11/2021 Ancillary Procedure Department of Radiology Ridge Vega in [facility] raúl Quintana 200 [facility] 200 [place] [phone] (Wo rk) Social History Tobacco Use Types [...] you attend yazdanism or Patient refused 2021 mu-ism services? Do [...] bilateral thalami (series 3 image 36), bilateral AUTOMOTIVE WINDOW TINTER 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 bilateral thalami (series 3 image 36), bilateral AUTOMOTIVE WINDOW TINTER 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 bilateral thalami (series 3 image 36), bilateral AUTOMOTIVE WINDOW TINTER 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 bilateral thalami (series 3 image 36), bilateral AUTOMOTIVE WINDOW TINTER 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 bilateral thalami (series 3 image 36), bilateral AUTOMOTIVE WINDOW TINTER 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 bilateral thalami (series 3 image 36), bilateral AUTOMOTIVE WINDOW TINTER 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
--- OUTSIDE RECORDS SUMMARY | 2022-07-06 15:38 | XMS_ITS | Encounter Summary ---
:1965 Author Organization [facility] Address [address] [place] [address] Care Team Providers Name Role Phone Unavailable Primary Care Provider Unavailable Encounter Details Date Type Department Care Team Description 02/02/2021 Orders Only Department of Neurology in Bisi Acevedo D.O. [place], [place] 200 [facility] 200 [place] [phone] [phone] (Wo rk) Social History Tobacco Use Types [...] you attend confucianist or Patient refused 2021 buddhist services? Do [...]
--- OUTSIDE RECORDS SUMMARY | 2022-07-06 15:38 | XMS_ITS | Encounter Summary ---
:1965 Author Organization [facility] Address [address] [place] [address] Care Team Providers Name Role Phone Unavailable Primary Care Provider Unavailable Reason for Visit Outpatient (Routine) - Closed Specialty Diagnoses / Procedures Referred By Contact Refer red To Contact Video Medicine Diagnoses Stroke Cerebrovascular Accident Personal History Robert Diehl [place] M.D. [address] [place] [address] Referral ID Status Reason Start Date Expiration Date Visits Requ ested Visits Authorized [id number] Closed 12/30/2020 12/30/2021 1 1 Encounter Details Date Type Department Care Team Description 02/02/2021 Virtual Visit Department of Robert Diehl Stroke Cere brovascular Neurology jimmy Celaya M.D. Accident Personal [place], [place] 200 [facility] History 200 [place] [phone] Social History Tobacco Use Types Packs/Day Years [...] you attend mandaen or Patient refused 2021 mosque services? Do you belong to any clubs or No 05/17/2022 organizations such as mandaen groups, unions, fraMyPrepApp or athletic groups, or school groups? How [...] department over the weekend was transferred to [facility] service where she is currently admitted. Therefore she will not be present for today's 8:00 a.m. Outpatient consultation. Highly appreciative of the [facility] Stroke Service cares. No charge. Electronically signed by: Robert Diehl M.D. 02/02/21 7:46 AM ALTERNATIVE MEDICINE PRACTITIONER RNATIVE MEDICINE PRACTITIONER documented in this encounter Plan of Treatment Not on filedocumented as of this encounter Visit Diagnoses Diagnosis Stroke Cerebrovascular Accident Personal History documented in this encounter Additional Health Concerns Assessment Noted Time PHQ-9 Depression Total Score: 23 02/02/2021 11:[address] documented as of this encounter
--- OUTSIDE RECORDS SUMMARY | 2022-07-06 15:38 | XMS_ITS | Encounter Summary ---
:1965 Author Organization [facility] Address [address] [place] [address] Care Team Providers Name Role Phone Unavailable Primary Care Provider Unavailable Encounter Details Date Type Department Care Team Description 02/03/2021 Orders Only Department of Neurology Leonides Kumar S troke ([facility]) (Primary in [facility] Lilian Dx) 200 [facility] 200 [place] [address] [phone] Social History Tobacco Use Types Packs/Day Years [...] you attend yarsanism or Patient refused 2021 restorationism services? Do [...]
--- OUTSIDE RECORDS SUMMARY | 2022-07-06 15:38 | XMS_ITS | Encounter Summary ---
:1965 Author Organization [facility] Address [address] [place] [address] Care Team Providers Name Role Phone Unavailable Primary Care Provider Unavailable Encounter Details Date Type Department Care Team Description 02/05/2021 Orders Only Pharmacy Prior Auth RO Elsewhere, Pcp [phone] Social History Tobacco Use Types Packs/Day Years [...] you attend restorationist or Patient refused 2021 samaritan services? Do [...]
--- OUTSIDE RECORDS SUMMARY | 2022-07-06 15:38 | XMS_ITS | Encounter Summary ---
:1965 Author Organization [facility] Address [address] [place] [address] Care Team Providers Name Role Phone Unavailable Primary Care Provider Unavailable Reason for Visit Reason Comments Pre-visit Intake Encounter Details Date Type Department Care Team Description 01/29/2021 Clinical Communication Department of Robert Diehl e-visit Intake Neurology in Lilian Celaya [place], [facility] [place], [place] [address] [place] [phone] [place], [place] [phone] (Work) [phone] Social History Tobacco Use Types Packs/Day Years [...] you attend mosque or Patient refused 2021 taoist services? Do you belong to any clubs or No 05/17/2022 organizations such as mosque groups, unions, fraternal or athletic groups, or [...]
--- OUTSIDE RECORDS SUMMARY | 2022-07-06 15:38 | XMS_ITS | Encounter Summary ---
:1965 Author Organization [facility] Address [address] [place] [id number] Care Team Providers Name Role Phone Unavailable Primary Care Provider Unavailable Reason for Referral Outpatient (Routine) - Closed Specialty Diagnoses / Procedures Referred By Contact Refer red To Contact Home Health Care Diagnoses Stroke (HCC) Chronic Pain Syndrome Stroke Cerebrovascular Accident Personal History Ric Quinn M.D., M.S. [address] [place] [id number] Referral ID Status Reason Start Date Expiration Date Visits Requ ested Visits Authorized [id number] Closed 02/03/2021 02/03/2022 1 1 RGLASS SKI MAKER Encounter Details Date Type Department Care Team Description 01/31/2021 - Hospital Encounter [facility], Stroke (H CC) (Primary Dx); [facility], [address] [place] [address] Stroke Cerebrovascular Accident Personal History [facility], [facility] [phone] floor [phone] [place] [address] (Work) [place], [place] [phone] (Fax) [phone] Social History Tobacco Use Types Packs/Day Years [...] you attend confucianist or Patient refused 2021 anabaptism services? Do [...] Comments Blood Pressure 133/71 02/03/2021 5:15 PM FIBERGLASS SKI MAKER Pulse 92 02/03/2021 5:15 PM FIBERGLASS SKI MAKER Temperature 36.5 ??C (97.7 ??F) 02/03/2021 5:15 PM FIBERGLASS SKI MAKER Respiratory Rate 17 02/03/2021 5:15 PM FIBERGLASS SKI MAKER Oxygen Saturation 97% 02/03/2021 5:15 PM FIBERGLASS SKI MAKER Inhaled Oxygen Concentration - - Weight 78.8 kg (173 lb 11.6 oz) 01/31/2021 9:39 PM FIBERGLASS SKI MAKER Height 152.4 cm (5') 01/31/2021 9:39 PM FIBERGLASS SKI MAKER Body Mass Index 33.93 01/31/2021 9:39 PM FIBERGLASS SKI MAKER documented in this encounter Discharge Summaries Malcom Torres M.D. - 02/03/2021 2:24 PM CST DISCHARGE SUMMARY BRIEF OVERVIEW Hospital: [facility] Discharge Provider: Nan Rios M.D. Primary Team: [facility] Neurology Stroke and Cerebrovascular Disease No primary [...] artery dissection. Shewas subsequently admitted directly to [facility] Neurology Stroke service for further workup and [...] ??C, temperature source Oral, resp. rate 17, bytgdg243.4 cm, weight 78.8 kg, SpO2 94 %. [...] were provided to the patient and caregiver(s). RGLASS SKI MAKER documented in this encounter Discharge Instructions Discharge InstructionsLaquita Raines - 02/02/2021 7:23 AM CST You were discharge from the Neurology Stroke Service. Please Identify this service name if you call with questions after your hospitalization. RGLASS SKI MAKER Discharge Instr - ActivityLeonides Liang P.T. - 02/02/2021 1:13 PM FIBERGLASS SKI MAKER Physical Therapy Discharge Summary MOBILITY RESTRICTIONS/PRECAUTIONS: Fall [...] 02/02/2021 by Leonides Liang P.T. Contact information: [facility], [address], RGLASS SKI MAKER AttachmentsThe following attachments cannot be sent through Care Everywhere. Apixaban (By mouth) (Beninese)Nicotine (Absorbed through the skin) (Beninese) Nicotine (By breathing) (Beninese)Nicotine (Into the nose) (Beninese)documented in this encounter Medications at Time of [...] Per patient report, she was able to hair tinter the shower last evening and using grab [...] Treatment Time (min): 16 min CARLO Cardoza/Yomi RGLASS SKI MAKER Helen Greer P.T. - 02/03/2021 1:57 PM CST No PT intervention today as patient was at an MRI this morning, now stating that she has just gone for a walk and plans are for dc to home with intermittent assist from her son. Helen Greer, PT RGLASS SKI MAKER Catalina Panchal, R.N. - 02/03/2021 1:49 PM CST Patient discussed at Stroke Multidisciplinary Rounds. Plan for the day: Case Management Following, PT/OT, Medication Management, MRI/MRA Plan for the Stay: Stroke w/u Discharge barriers: Inpatient Needs [place] [facility] [place] Nan Feliz M.D. - 02/03/2021 10:36 AM [...] pain syndrome, fibromyalgia, and nicotine use disorder. RGLASS SKI MAKER Leonides Kumar M.D. - 02/03/2021 7:09 AM [...] status: Prior Disposition: Home Plan discussed with [facility] Neurology Stroke and Cerebrovascular Disease Service Desk Analyst, Dr. Rios. Please page the [facility] Neurology Stroke and Cerebrovascular Disease service pager at [phone] with any questions. Leonides Kumar M.D. RGLASS SKI MAKER Makenzie Figueredo O.TCarlota - 02/02/2021 3:24 PM [...] home to ensure her safety. From the Employment Instructional Associate's perspective, the patient is not an inpatient [...] Treatment Time (min): 32 min MILA Cardoza RGLASS SKI MAKER Catalina Panchal R.N. - 02/02/2021 2:31 PM CST Patient discussed at Stroke Multidisciplinary Rounds. Plan for the day: MRI, Case Management Consult, PT/OT, Medication Management Plan for the Stay: Stroke w/u Discharge barriers: Inpatient Needs Recommended discharge disposition[place] [facility] [place] RGLASS SKI MAKER Leonides Liang P.T. - 02/02/2021 12:58 PM [...] Time (min): 32 min Leonides Liang P.T. RGLASS SKI MAKER Nan Rios M.D. - 02/02/2021 10:27 AM [...] pain syndrome, fibromyalgia, and nicotine use disorder. RGLASS SKI MAKER Jessie Rock, DBritton, R.Ph. - 02/02/2021 10:21 AM CST Images from the original note were not included. Admission Medication History Note Adherence issues: Unable to assess Medication list source: Pharmacy or dispense records. Medication list provided by [facility] in [place]. Most recent dispensing information obtained. Multiple changes [...] by mouth 2 (two) times a day. RGLASS SKI MAKER Leonides Kumar M.D. - 02/02/2021 6:55 AM [...] with RST Neurology Stroke and Cerebrovascular Disease Service Desk Analyst, Dr. Rios. Please page the [facility] Neurology Stroke and Cerebrovascular Disease service pager at [phone] with any questions. Leonides Kumar M.D. RGLASS SKI MAKER Leonides Kumar M.D. - 02/01/2021 6:36 AM [...] status: Prior Disposition: Home Plan discussed with [facility] Neurology Stroke and Cerebrovascular Disease Service Desk Analyst, Dr. Rios. Please page the [facility] Neurology Stroke and Cerebrovascular Disease service pager at [phone] with any questions. Leonides Kumar M.D. RGLASS SKI MAKER documented in this encounter H&P Notes Nan [...] segment. ?? The patient presented to the [place] ED with acute onset vertigo which occurred yesterday afternoon while she was at [facility]. She bent forward and complained of neck pain which radiated to the top of her head. She also complained of warmth all over her body and generalised weakness. ?? With effort, she was able to ambulate back to her car with her groceries, where she met her son, whothen took her to the [place] ED. There, the patient had a head CT the chronic left cerebellar infarct. There was also concern for a new infarct in the right thalamus. INR was 1.35. She was transferred to [facility] for further evaluation. ?? Today, she feels [...] pain syndrome, fibromyalgia, and nicotine use disorder. RGLASS SKI MAKER Marbella Cutler M.D. - 02/01/2021 2:55 AM [...] V4 segment. The patient presented to the [place] ED with acute onset vertigo which occurred yesterday afternoon while she was at [facility]. She bent forward and complained of neck pain which radiated to the top of her head. She also complained of warmth all over her body and generalised weakness. With effort, she was able to ambulate back to her car with her groceries, where she met her son, whothen took her to the [place] ED. There, the patient had a head CT the chronic left cerebellar infarct. INR was 1.35. She was transferred to [facility] for further evaluation. On the floor, she was hemodynamically stable but complained of ongoing vertigo, with difficulty keeping her eyes open. Social history: she is currently unemployed but previously worked at a [employer] and [employer]. She is fully independent of her ADLs [...] admitting resident. Please page the Stroke service [phone] with questions/concerns. RGLASS SKI MAKER Gerald England M.D. - 01/31/2021 9:16 PM [...] artery dissection. Shewas subsequently admitted directly to [facility] Neurology Stroke service for further workup and [...] ENDOSCOPY FRONTAL.; Surgeon: Darlin Olmedo M.D.; Location: [facility] ROMB OR ??? SPINAL CORD STIMULATOR IMPLANT [...] More than three times a week Attends anabaptism service: Patient refused Active member of club [...] and normal caliber bilateral MCAs, ACAs and internet technology manager. Patent anterior and right posterior communicating arteries. [...] page the Cerebrovascular Neurology Service pager at [phone] with any questions or concerns. [facility] Stroke Neurology Service Analytical Strategist: Nan England M.D. STROKE DOCUMENTATION: Stroke Center [...] to hemorrhage and/or hemorrhagic risk Prestroke modified Cavendish Score (mRS): 1 - No significant disability. [...] 30 or greater) and hormonal contraceptive use RGLASS SKI MAKER documented in this encounter Consult Notes Pamela Middleton M.S., LThomasC., C.T.T.S. - 02/03/2021 10:08 AM CSTAssociated Order(s): IP CONSULT TO INTERNAL MEDICINE NICOTINE DEPENDENCE; IP CONSULT TO INTERNAL MEDICINE NICOTINE DEPENDENCE SUBJECTIVE Consults REASON FOR CONSULT Admitting Service: Neurology Reason for Consult: Tobacco Use Disorder HISTORY OF PRESENT ILLNESS Angie Bender is a 55 y.o. female who was seen at [place] and is being evaluated for tobacco use [...] longest period of abstinence being 5 years. Angie has tried stopping using various methods [...] / PLAN 1. Tobacco use disorder Ms. Bneder has initiated a quit attempt and plans [...] provided the patient with educational materials and [facility] contact information. Patient is unable to schedule [...] Middleton M.S., Delvin, C.T.T.S. 02/03/2021 10:08 AM FIBERGLASS SKI MAKER RGLASS SKI MAKER Catalina Panchal, RBrittonNBritton - 02/02/2021 2:11 PM CSTAssociated Order(s): IP CONSULT TO CARE MANAGEMENT Discharge Planning Assessment SUBJECTIVE Referral Data Referral Source: Early Screen for Discharge Planning Referral Reason: Discharge Planning Discharge Planning: Home health Who was present during the interview?: Patient Under Water Assistant Services Used: No Patient Information Primary Caregiver: Self Legal Information Legal Decision Maker: Self Legal Status: Voluntary Caregiver Information Self Services Requested Home Health: assisted Level of Care: Intermediate OBJECTIVE Functional Status (ADLs) Functional Status: Minimum assistance Assistive Devices: Walker, Shower chair, Eyeglasses, Hearing aids Dressing: Independent Feeding: Independent Bathing: Independent Grooming: Independent Toileting: Independent Transfer to/from Bed, Chair Etc.: Independent Mobility: Independent Meal Prep: Independent Medication Setup/Administration: Needs assistance Telephone Use: Independent Housekeeping: Independent Shopping: Independent Managing Finances: Independent Behavior: Oriented Communication: Talks, Understands speaking, Understands Beninese Environmental Supports Home Environment: House Anticipated Needs/Assistive [...] Nurse visit Home Care Agency Name : [facility] Anticipated Discharge Destination: Home-Health Care [facility] [place] Recommended Discharge Services: Nursing Does the patient need discharge transport arranged?: No ASSESSMENT / PLAN Plan Assessment: The manager club met with Angie Bender to discuss her current hospitalization and home goingneeds. The patient was unaccompanied. The patient was a reliable historian, but was lacking completedetails at times. The role of manager club was reviewed. The patient reviewed her prior level of care and support system. The patient receives support from her son. The patient described her living environment as a single level home with level entry. Housekeeping, grocery shopping, meal prep, and other household responsibilities have previously been completed by patient. manager club discussed the patient's potential needs at dismissal based on their home setti ng, previous needs and responsibilities, homebound status, and relevant assessments with the patient. The patient will be safe and supported to return home with [facility] or previous services noted above when [...] dismissal will be provided by family--son. 3. manager club recommended nothing at this time. 4. manager club provided information regarding the dismissal process. 5. manager club placed or requested the following hospital-based consult orders and/or referrals:None. 6. manager club will continue to assess for homegoing needs with the interdisciplinary team. 7. manager club encouraged the patient to reach out with any questions/concerns. Care Management will continue to follow. Patient to discharge with home health care. [facility] - Admitted Since 01/31/2021 The patient receives fdc visits 1-2x week. She has qualified for CIRCUIT DESIGN ENGINEER, homemaking, and home health aide visits, but [...] arise. Signed by: Hailey Panchal R.N. 02/02/2021 RGLASS SKI MAKER Radha Samuel PBrittonT. - 02/01/2021 4:51 PM [...] With: Alone Receives Help From: Family, Friend(s), car park attendant ADL Assistance: Independent IADL/Homemaking Assistance: Required assistance IADL/Homemaking Assistance Comments: Has assistance with meals on wheels, cleaning, and medication management Occupational Role: On disability Prior Mobility/Functional Transfers Level of Manatee: Independent Previous Transfer/Mobility Assistance Comments: Patient reports [...] Time (min): 25 min Radha Samuel P.T. RGLASS SKI MAKER Rosario Lopez O.T. - 02/01/2021 3:17 PM [...] With: Alone Receives Help From: Family, Friend(s), car park attendant ADL Assistance: Independent IADL/Homemaking Assistance: Required assistance IADL/Homemaking Assistance Comments: Has assistance with meals on wheels, cleaning, and medication management Driving: Independent Occupational Role: On disability Occupational Role Comments: Previously worked at a [employer] and [employer] Prior Mobility/Functional Transfers Level of Manatee: Independent Home Living Type of Home: Apartment [...] Time (min): 60 min Rosario Lopez O.T. RGLASS SKI MAKER Maria M Duque M.D. - 02/01/2021 7:21 AM CSTAssociated Order(s): IP CONSULT TO PHYSICAL MEDICINE & REHABILITATION Consult received for Physical Medicine and Rehabilitation Consult Service. I reviewed the electronic health record. I have triaged to therapy only; no patient service representative consult appears to be necessary at this time. If therapists or referring service feel that a patient service representative review is necessary, please send a new consult request with only the Physician consult - Physical Medicine and Rehabilitation consult (hospital) item selected. RGLASS SKI MAKER documented in this encounter Nursing Notes Sofie [...] by: Sofie Sutton R.N. 02/03/21 5:24 PM FIBERGLASS SKI MAKER RGLASS SKI MAKER Sofie Sutton R.N. - 02/03/2021 5:20 PM [...] by: Sofie Sutton R.N. 02/03/21 5:22 PM FIBERGLASS SKI MAKER RGLASS SKI MAKER Marlene Grover R.N. - 02/03/2021 5:14 AM [...] Goal: Patient discharge needs identified Outcome: Progressing RGLASS SKI MAKER Mague Rudolph RBetsy - 02/02/2021 5:03 AM CST Shift Goals: Clinical Goals for the Shift: patient will use call light appropriately Identify possible barriers to meeting goals/advancing plan of care: End of Shift Summary: patient met goal RGLASS SKI MAKER Valarie Grayson RBrittonN. - 02/01/2021 5:59 PM CST Shift Goals: Clinical Goals for the Shift: Patient will tolerate MRI Identify possible barriers to meeting goals/advancing plan of care: Patient's medical advisor End of Shift Summary: Goal not met. MRI scheduled for Tuesday related to device monitoring. Electronically signed by: Valarie Grayson R.N. 02/01/21 5:59 PM FIBERGLASS SKI MAKER Problem: SKIN/TISSUE INTEGRITY Goal: Skin/Tissue integrity maintained or improved Outcome: Progressing Problem: SAFETY ADULT Goal: Maintain a safe environment Outcome: Progressing Problem: SAFETY ADULT - RISK FOR FALL AND OR FALL INJURY Goal: Patient remains free from fall/fall injury Outcome: Progressing RGLASS SKI MAKER documented in this encounter Miscellaneous Notes Hospital [...] artery dissection. Shewas subsequently admitted directly to [facility] Neurology Stroke service for further workup and [...] after a CTA head/neck in 3 months. RGLASS SKI MAKER documented in this encounter Plan of Treatment Scheduled Referrals Name Type Priority Associated Diagnoses Order S chedule [facility] Outpatient Referral Routine Stroke (HCC) Ordered: Health Referral Chronic Pain Syn drome 02/03/2021 Stroke Cerebrovascular Accident Personal History documented as of this encounter Procedures Procedure Name Priority Date/Time Associated Comments Diagnosis MR NECK ANGIOGRAM RAD - Routine 02/03/2021 Results f or WITHOUT AND WITH IV (most inpatients 12:39 PM FIBERGLASS SKI MAKER this procedure CONTRAST and all are in the outpatients) results section. MR BRAIN WITHOUT AND RAD - Routine 02/03/2021 Result s for WITH IV CONTRAST (most inpatients 12:34 PM FIBERGLASS SKI MAKER this pr ocedure and all are in the outpatients) results section. DX ABDOMEN SUPINE WITH RAD - Routine 02/02/2021 3:26 R esults for UPRIGHT OR DECUBITUS 2 (most inpatients PM FIBERGLASS SKI MAKER t his procedure VIEWS and all are in the outpatients) results section. PROTHROMBIN TIME (PT), Routine 02/02/2021 5:20 Re sults for P AM FIBERGLASS SKI MAKER this procedure are in the results section. LIPID PANEL, S Routine 02/01/2021 5:21 Results fo r AM FIBERGLASS SKI MAKER this procedure are in the results section. RENAL FUNCTION PANEL, S Routine 02/01/2021 5:21 R esults for AM FIBERGLASS SKI MAKER this procedure are in the results section. FOLATE, S Routine 02/01/2021 5:21 Results for AM FIBERGLASS SKI MAKER this procedure are in the results section. VITAMIN B12 ASSAY, S Routine 02/01/2021 5:21 Resu lts for AM FIBERGLASS SKI MAKER this procedure are in the results section. ECG Routine 01/31/2021 Results for 11:35 PM FIBERGLASS SKI MAKER this procedure are in the results section. SARS CORONAVIRUS 2, Routine 01/31/2021 Results for RNA, RAPID POC, V 10:32 PM FIBERGLASS SKI MAKER this proce dure are in the results section. ELECTROLYTE (CHEM 4) Routine 01/31/2021 9:44 Resu lts for PANEL, S/P PM FIBERGLASS SKI MAKER this procedure are in the results section. ACTIVATED PARTIAL Routine 01/31/2021 9:44 Results for THROMBOPLASTIN TIME PM FIBERGLASS SKI MAKER this pro cedure (APTT), P are in the results section. PROTHROMBIN TIME (PT), Routine 01/31/2021 9:44 Re sults for P PM FIBERGLASS SKI MAKER this procedure are in the results section. CBC WITH DIFFERENTIAL, Routine 01/31/2021 9:44 Re sults for B PM FIBERGLASS SKI MAKER this procedure are in the results section. ALANINE Routine 01/31/2021 9:44 Results for AMINOTRANSFERASE (ALT), PM FIBERGLASS SKI MAKER this procedure S/P are in the results section. ASPARTATE Routine 01/31/2021 9:44 Results for AMINOTRANSFERASE (AST), PM FIBERGLASS SKI MAKER this procedure S/P are in the results section. THYROID-STIMULATING Routine 01/31/2021 9:44 Resul ts for HORMONE-SENSITIVE PM FIBERGLASS SKI MAKER this proce dure (S-TSH) are in the results section. HEMOGLOBIN A1C, B Routine 01/31/2021 9:44 Results for PM FIBERGLASS SKI MAKER this procedure are in the results section. documented in this encounter Results MR Neck Angiogram without and with IV Contrast (02/03/2021 12:39 PM FIBERGLASS SKI MAKER) Anatomical Region Laterality Modality Neck, Neuroradiology RST LOS, Neuroradiology [facility], N/A Magnetic Resonance Neuroradiology [facility] Specimen (Source) Anatomical Collection Method Collection Time Re ceived Time Location / / Volume Laterality 02/03/2021 11:37 AM FIBERGLASS SKI MAKER Impressions 02/03/2021 1:26 PM FIBERGLASS SKI MAKER 1. Infarctions in the posterior circulation of [...] technica l limitations. Narrative 02/03/2021 1:26 PM FIBERGLASS SKI MAKER EXAM: MR BRAIN WITHOUT AND WITH IV [...] and with IV Contrast (02/03/2021 12:34 PM FIBERGLASS SKI MAKER) Anatomical Region Laterality Modality Head, Brain, Neuroradiology RST LOS, Neuroradiology [facility] N/A Magnetic Resonance LOS, Neuroradiology [facility] Specimen (Source) Anatomical Collection Method Collection Time Re ceived Time Location / / Volume Laterality 02/03/2021 11:37 AM FIBERGLASS SKI MAKER Impressions 02/03/2021 1:26 PM FIBERGLASS SKI MAKER 1. Infarctions in the posterior circulation of [...] technica l limitations. Narrative 02/03/2021 1:26 PM FIBERGLASS SKI MAKER EXAM: MR BRAIN WITHOUT AND WITH IV [...] or Decubitus 2 Views (02/02/2021 3:26 PM FIBERGLASS SKI MAKER) Anatomical Region Laterality Modality Abdomen, Abdominal RST LOS, Abdominal ARZ LOS, Right Digital Radiography Abdominal FLA LOS Specimen (Source) Anatomical Collection Method Collection Time Re ceived Time Location / / Volume Laterality 02/02/2021 3:49 PM FIBERGLASS SKI MAKER Impressions 02/02/2021 3:50 PM FIBERGLASS SKI MAKER Spinal stimulator device with tip over the T7-8 interspace. Generator pack posterior to the left janett ac crest. Postoperative changes ventral hernia repair. Surgical marylin near the GE junction. Cholecystectomy. Lung bases are clear. Narrative 02/02/2021 3:50 PM FIBERGLASS SKI MAKER EXAM: ??DX ABDOMEN SUPINE WITH UPRIGHT OR [...] (ABNORMAL) Prothrombin Time (PT) (02/02/2021 5:20 AM FIBERGLASS SKI MAKER) [facility] gist Method Time Signature Prothrombin 16.2 (H) 9.4 - 12.5 02/02/2021 DTL Time, P sec 6:12 AM FIBERGLASS SKI MAKER INR 1.5 0.9 - 1.1 02/02/2021 DTL 6:12 AM FIBERGLASS SKI MAKER Comment: ----ADDITIONAL INFORMATION---- Standard intensity warfarin therapeutic range: 2.0 to 3.0 ?? High intensity warfarin therapeutic rang e: 2.5 to 3.5 Specimen Anatomical Collection Method Collection Time Receive d Time (Source) Location / / Volume Laterality Blood (Blood, 02/02/2021 5:20 AM 02/03/20 5:48 Venous) FIBERGLASS SKI MAKER AM FIBERGLASS SKI MAKER Leonides Kumar M.D. LAB BLOOD ADD-ON Performing Organization Address City/State/ZIP Code Phon e Number [facility] - [address] [place], [place] [address] [facility] [place] [address] Laboratories-[facility] [address] [facility] Renal Function Panel (02/01/2021 5:21 AM FIBERGLASS SKI MAKER) P athologist Signature Potassium, S 4.3 3.6 - 5.2 02/01/2021 DTL mmol/L 6:26 AM FIBERGLASS SKI MAKER Sodium, S 139 135 - 145 02/01/2021 DTL mmol/L 6:26 AM FIBERGLASS SKI MAKER Chloride, S 106 98 - 107 02/01/2021 DTL mmol/L 6:26 AM FIBERGLASS SKI MAKER Bicarbonate, S 25 22 - 29 02/01/2021 DTL mmol/L 6:26 AM FIBERGLASS SKI MAKER Anion Gap 8 7 - 15 02/01/2021 DTL 6:26 AM FIBERGLASS SKI MAKER BUN (Blood Urea 14 6 - 21 02/01/2021 DTL Nitrogen), S mg/dL 6:26 AM FIBERGLASS SKI MAKER Creatinine, S 0.74 0.59 - 1.04 02/01/2021 DTL mg/dL 6:26 AM FIBERGLASS SKI MAKER eGFR-Non >90 >=60 02/01/2021 DTL Black/ mL/min/BSA 6:26 AM FIBERGLASS SKI MAKER Mongolian Comment: ----ADDITIONAL INFORMATION---- Estimated GFR calculated using the 2009 CKD_EPI creatinine equation. eGFR-Black/ >90 >=60 mL/min/BSA 2020 6:26 AM FIBERGLASS SKI MAKER DTL Comment: ----ADDITIONAL INFORMATION---- Estimated GFR calculated using the 2009 CKD_EPI creatinine equation. Calcium, Total, S 9.2 8.6 - 10.0 mg/dL 02/01/2021 6:26 AM FIBERGLASS SKI MAKER DTL Glucose, S 96 70 - 140 mg/dL 02/01/2021 6:26 AM FIBERGLASS SKI MAKER D TL Albumin, S 3.6 3.5 - 5.0 g/dL 02/01/2021 6:26 AM [employer] D TL Phosphorus (Inorganic), S 4.0 2.5 - 4.5 mg/dL 02/02/20 6:26 AM [employer] DTL Specimen Anatomical Collection Method Collection Time Receive d Time (Source) Location / / Volume Laterality Blood (Blood, 02/01/2021 5:21 AM 02/02/20 5:52 Venous) [employer] AM [employer] Gerald England M.D. LAB BLOOD ADD-ON Performing Organization Address City/[facility] Phon e Number [facility] - [address] [place], [place] [address] [place] [address] Laboratories-[facility] 200 [facility] (ABNORMAL) Vitamin B12 Assay (02/01/2021 5:21 AM [employer]) Analysis Performed At Patho logist Time Signature Vitamin B12 >1400 (H) 180 - 914 02/02/2021 DTL Assay, S ng/L 7:10 AM [employer] Comment: ----ADDITIONAL INFORMATION---- In patients being evaluated [...] (Blood, 02/01/2021 5:21 AM 02/02/20 5:52 Venous) [employer] AM [employer] Gerald Engladn M.D. LAB BLOOD ADD-ON Performing Organization Address City/State/ZIP Code Phon e Number [facility] - [address] [place], [place] [address] [facility] [place] [place] [address] Laboratories-[facility] [address] [facility] Folate (02/01/2021 5:21 AM [employer]) P athologist Signature Folate, S 17.9 >=4.0 mcg/L 02/02/2021 7:09 DTL AM [employer] Specimen Anatomical Collection Method Collection Time Receive d Time (Source) Location / / Volume Laterality Blood (Blood, 02/01/2021 5:21 AM 02/02/20 5:52 Venous) [employer] AM [employer] Gerald England M.D. LAB BLOOD ADD-ON Performing Organization Address City/State/[facility] Phon e Number [facility] - [address] [place], [place] [address] [place] [id number] Laboratories-[facility] 200 [facility] Lipid Panel (02/01/2021 5:21 AM [employer]) athologist Signature Cholesterol, 157 mg/dL 02/01/2021 DTL Total 6:27 AM [employer] Comment: ----REFERENCE VALUE---- Desirable: < 200 Borderline high: 200 - 239 High: > or = 240 Triglycerides 107 mg/dL 02/01/2021 6:27 AM [employer] DTL Comment: ----REFERENCE VALUE---- Normal: <150 Borderline high: 150-199 High: 200-499 Very high: > or =500 Cholesterol, HDL, S 88 >=50 mg/dL 02/01/2021 6:27 AM [employer] DTL Calculated LDL 48 mg/dL 02/01/2021 6:27 AM [employer] DT L Comment: ----REFERENCE VALUE---- Desirable: <100 Above Desirable: 100-129 Borderline high: 130-159 High: 160-189 Very high: > or =190 Cholesterol, Non-HDL, Calculated 69 mg/dL 021 6:27 AM [employer] DTL Comment: ----REFERENCE VALUE---- Desirable: <130 Above Desirable: 130-159 Borderline high: 160-189 High: 190-219 Very high: > or =220 Specimen Anatomical Collection Method Collection Time Receive d Time (Source) Location / / Volume Laterality Blood (Blood, 02/01/2021 5:21 AM 02/02/20 5:52 Venous) [employer] AM [employer] Gerald England M.D. LAB BLOOD ADD-ON Performing Organization Address City/State/[facility] Code Phon e Number [facility] - [address] [place], [place] [address] [facility] [place] [address] ECG 12 Lead (01/31/2021 11:35 PM [employer]) P athologist Signature Ventricular Rate 60 BPM MUSE ECG/Min NV Interval 170 ms MUSE QRSD Interval 88 ms MUSE QT Interval 434 ms MUSE QTC Interval 434 ms MUSE P [place] 31 degrees MUSE R [place] -16 degrees MUSE T Wave [place] 3 degrees MUSE Specimen Anatomical Collection Method Collection Time Receive d Time (Source) Location / / Volume Laterality 01/31/2021 11:35 02/01/2021 6:10 PM [employer] AM [employer] Impressions MUSE - 02/01/2021 6:10 AM [employer] Normal sinus rhythm Minimal voltage criteria for [...] Rapid POC, V Asymptomatic (01/31/2021 10:32 PM [employer]) [facility] Method Time Signature SARS Undetected Undetected 01/31/2021 DTLR Coronavirus-2 10:52 PM [employer] , RNA, Rapid POC, V Comment: Negative for SARS-CoV-2. The Accelalox COVID-19 test is a molecular shahzad t for SARS-CoV-2, the virus that causes COVID- 19. A Negative result means that the Accelalox COV ID-19 test did not detect SARS-CoV-2 virus in your sample. Cue COVID-19 test uses the [employer] nitoring System. This test has received Emergency Use Authorization (EUA) by the U.S. Food and Drug Administration (FDA) and is used per man ufacturer instructions. Performance characteristic s were verified by [facility] in a manner consistent with CLIA requirements. Fact sheets for this Emerg ency Use Authorization (EUA) can be found at the following links: Providers: [email or web address] Patients: [email or web address] SARS Coronavirus 2, Source Nasopharynx DEFAULT 01/31/2021 10:52 PM [employer] DTLR Specimen Anatomical Collection Method Collection Time Receive d Time (Source) Location / / Volume Laterality Varies 01/31/2021 10:32 01/31/2021 (Nasopharynx) PM [employer] 10:32 PM [employer] Nan Rios M.D. LAB MICROBIOLOGY - GENERAL O RDERABLES Performing Organization Address City/[facility]/ZIP [facility] Phon e Number PERFORMING LABS, REF [place] [address] INTERFACE Ref Interface 200 [facility] DTLR Performing Labs, [place] [address] Interface 200 [facility] Electrolyte (Chem 4) Panel (01/31/2021 9:44 PM [employer]) P athologist Signature Potassium, P 4.0 3.6 - 5.2 01/31/2021 STMA mmol/L 10:06 PM [employer] Sodium, P 137 135 - 145 01/31/2021 STMA mmol/L 10:06 PM [employer] Chloride, P 104 98 - 107 01/31/2021 STMA mmol/L 10:06 PM [employer] Bicarbonate, P 24 22 - 29 01/31/2021 STMA mmol/L 10:06 PM [employer] Anion Gap, P 9 7 - 15 01/31/2021 STMA 10:06 PM [employer] Specimen Anatomical Collection Method Collection Time Receive d Time (Source) Location / / Volume Laterality Blood (Blood, 01/31/2021 9:44 PM 02/01/20 9:56 Venous) [employer] PM [employer] Gerald England M.D. LAB BLOOD ADD-ON Performing Organization Address City/[facility]/ZIP Code Phon e Number [facility] - [address] [place], [place] [address] [facility] [place] [address] Laboratories-[facility] [address] (ABNORMAL) Prothrombin Time (PT) (01/31/2021 9:44 PM [employer]) [facility] Method Time Signature Prothrombin 15.5 (H) 9.4 - 12.5 01/31/2021 DTL Time, P sec 10:27 PM [employer] INR 1.4 0.9 - 1.1 01/31/2021 DTL 10:27 PM [employer] Comment: ----ADDITIONAL INFORMATION---- Standard intensity warfarin therapeutic range: 2.0 to 3.0 ?? High intensity warfarin therapeutic rang e: 2.5 to 3.5 Specimen Anatomical Collection Method Collection Time Receive d Time (Source) Location / / Volume Laterality Blood (Blood, 01/31/2021 9:44 PM 02/01/20 Venous) [employer] 10:06 PM [employer] Gerald England M.D. LAB BLOOD ADD-ON Performing Organization Address City/[facility] Code Phon e Number [facility] - [address] [place] [address] Laboratories-[address] APTT (Activated Partial Thromboplastin Time) (01/31/2021 9:44 PM [employer]) P athologist Signature Activated 35 25 - 37 sec 01/31/2021 DTL Partial 10:27 PM [employer] Thrombopl Time, P Specimen Anatomical Collection Method Collection Time Receive d Time (Source) Location / / Volume Laterality Blood (Blood, 01/31/2021 9:44 PM 02/01/20 Venous) [employer] 10:06 PM [employer] Gerald England M.D. LAB BLOOD ADD-ON Performing Organization Address [facility] Phon e Number [facility] - [address] (ABNORMAL) Hemoglobin A1c (01/31/2021 9:44 PM [employer]) P athologist Signature Hemoglobin A1c, 6.1 (H) 4.0 - 5.6 01/31/2021 DTL B % 10:18 PM [employer] Comment: Hemoglobin A1c values of 5.7-6.4 percent indicate an increased risk for developing diabetes m ellitus. In diabetic patients, HbA1c goals should be discussed with healthcare provider. Specimen Anatomical Collection Method Collection Time Receive d Time (Source) Location / / Volume Laterality Blood (Blood, 01/31/2021 9:44 PM 02/01/20 21 Venous) [employer] 10:06 PM [employer] Gerald England M.D. LAB BLOOD ADD-ON Performing Organization Address City/[facility]/ZIP Code Phon e Number [facility] - [address] [place], [place] [address] [facility] [place] [address] Laboratories-[facility] [address] [facility] (ABNORMAL) CBC with Differential, Blood (01/31/2021 9:44 PM [employer]) [facility] Method Time Signature Hemoglobin 11.1 (L) 11.6 - 01/31/2021 DTL 15.0 g/dL 10:12 PM [employer] Hematocrit 34.9 (L) 35.5 - 01/31/2021 DTL 44.9 % 10:12 PM [employer] Erythrocytes 3.84 (L) 3.92 - 01/31/2021 DTL 5.13 10:12 PM [employer] x10(12)/L MCV 90.9 78.2 - 01/31/2021 DTL 97.9 fL 10:12 PM [employer] RBC Distrib Width 14.4 12.2 - 01/31/2021 DTL 16.1 % 10:12 PM [employer] Platelet Count 326 157 - 371 01/31/2021 DTL x10(9)/L 10:12 PM [employer] Leukocytes 6.8 3.4 - 9.6 01/31/2021 DTL x10(9)/L 10:12 PM [employer] Neutrophils 4.91 1.56 - 01/31/2021 DTL 6.45 10:12 PM [employer] x10(9)/L Lymphocytes 1.52 0.95 - 01/31/2021 DTL 3.07 10:12 PM [employer] x10(9)/L Monocytes 0.34 0.26 - 01/31/2021 DTL 0.81 10:12 PM [employer] x10(9)/L Eosinophils 0.03 0.03 - 01/31/2021 DTL 0.48 10:12 PM [employer] x10(9)/L Basophils 0.03 0.01 - 01/31/2021 DTL 0.08 10:12 PM [employer] x10(9)/L Specimen Anatomical Collection Method Collection Time Receive d Time (Source) Location / / Volume Laterality Blood (Blood, 01/31/2021 9:44 PM 02/01/20 21 Venous) [employer] 10:06 PM [employer] Gerald England M.D. LAB BLOOD ADD-ON Performing Organization Address City/State/ZIP Code Phon e Number [facility] - [address] [place], [place] [address] [place] [address] S-TSH (Thyroid-Stimulating Hormone - Sensitive) (01/31/2021 9:44 PM [employer]) P athologist Signature TSH, Sensitive 0.3 0.3 - 4.2 01/31/2021 DTL mIU/L 10:59 PM [employer] Specimen Anatomical Collection Method Collection Time Receive d Time (Source) Location / / Volume Laterality Blood (Blood, 01/31/2021 9:44 PM 02/01/20 Venous) [employer] 10:06 PM [employer] Gerald England M.D. LAB BLOOD ADD-ON Performing Organization Address City/[facility]/ZIP Code Phon e Number [facility] - [address] [place], [place] [address] [place] [address] AST (Aspartate Aminotransferase) (01/31/2021 9:44 PM [employer]) [facility] Method Time Signature Aspartate 23 8 - 43 01/31/2021 DTL Aminotransferase U/L 10:59 PM [employer] (AST), S Specimen Anatomical Collection Method Collection Time Receive d Time (Source) Location / / Volume Laterality Blood (Blood, 01/31/2021 9:44 PM 02/01/20 Venous) [employer] 10:06 PM [employer] Gerald England M.D. LAB BLOOD ADD-ON Performing Organization Address City/[facility]/ZIP Code Phon e Number [facility] - [address] [place], [place] [address] ALT (Alanine Aminotransferase) (01/31/2021 9:44 PM [employer]) [facility] Method Time Signature Alanine 15 7 - 45 01/31/2021 DTL Aminotransferase U/L 10:59 PM [employer] (ALT), S Specimen Anatomical Collection Method Collection Time Receive d Time (Source) Location / / Volume Laterality Blood (Blood, 01/31/2021 9:44 PM 02/01/20 21 Venous) [employer] 10:06 PM [employer] Gerald England M.D. LAB BLOOD ADD-ON Performing Organization Address City/State/ZIP Code Phon e Number [facility] - [address] [place], [place] [address] [facility] [place] [address] Laboratories-[facility] [address] [...] tablet 1,000 mg Given 02/03/2021 6:56 AM [employer] 1,000 mg (TYLENOL) 1,000 mg, oral, Every 6 hours PRN, mild pain or score 1-3 of 10, moderate pain or score 4-6 of 10, headaches, Starting on 02/01/21 at 0210 Given 02/02/2021 2:36 PM [employer] 1,000 mg Given 02/02/2021 8:53 AM [employer] 1,000 mg albuterol 90 mcg/actuation inhaler 2 puf f Given 02/03/2021 4:29 AM [employer] 2 puffs 2 puff, inhalation, Every 6 hours PRN, wheezing, shortness of breath, Starting on 02/01/21 at 1115 apixaban tablet 5 mg (ELIQUIS) Given 02/03/2021 9:30 AM [employer] 5 mg 5 mg, oral, 2 times daily, First dose on 02/02/21 at 2100 Given 02/02/2021 8:09 PM [employer] 5 mg aspirin tablet 325 mg Given 02/02/2021 8:11 AM [employer] 325 mg 325 mg, oral, Daily, First dose on 02/01/21 at 1030 Given 02/01/2021 10:54 AM [employer] 325 mg atorvastatin tablet 40 mg (LIPITOR) Given 02/02/2021 8:09 PM [employer] 40 mg 40 mg, oral, Daily at [...] 25 m cg Given 02/03/2021 9:29 AM [employer] 25 mcg 25 mcg, oral, Daily, First dose on 02/01/21 at 0900, cholecalciferol (vitamin D3) orderable was interchanged for cholecalciferol (vitamin D3) tablet/capsule Given 02/02/2021 8:10 AM [employer] 25 mcg Given 02/01/2021 9:11 AM [employer] 25 mcg cyanocobalamin tablet 2,000 mcg (VITAMIN Given 02/03/2021 9: 28 AM [employer] 2,000 mcg B12) 2,000 mcg, oral, Daily, First dose on 02/01/21 at 0900 Given 02/02/2021 8:08 AM [employer] 2,000 mcg Given 02/01/2021 9:11 AM [employer] 2,000 mcg diazePAM tablet 10 mg (VALIUM) Given 02/03/2021 10:51 AM [employer] 10 mg 10 mg, oral, 2 times daily PRN, anxiety, Starting on 02/01/21 at 1016 Given 02/02/2021 10:24 PM [employer] 10 mg Given 02/02/2021 8:53 AM [employer] 10 mg docusate sodium 283 mg/5 mL enema 1 enem a (ENEMEEZ) 1 enema, rectal, 2 times daily PRN, cons tipation, Starting on 01/31/21 at 2125, If no bowel movement within 24 hours of starting bisac odyl FLUoxetine capsule 80 mg (PROzac) Given 02/03/2021 9:28 AM [employer] 80 mg 80 mg, oral, Daily, First dose on 02/01/21 at 0900, FLUoxetine orderable was interchanged for FLUoxetine tablet/capsule Given 02/02/2021 8:10 AM [employer] 80 mg Given 02/01/2021 9:10 AM [employer] 80 mg folic acid tablet 800 mcg Given 02/03/2021 9:29 AM [employer] 800 mcg 800 mcg, oral, Every morning, First dose on 02/01/21 at 0900 Given 02/02/2021 8:14 AM [employer] 800 mcg Given 02/01/2021 10:00 AM [employer] 800 mcg furosemide tablet 40 mg (LASIX) Given 02/03/2021 9:29 AM [employer] 40 mg 40 mg, oral, 2 times daily, First dose on Tue02/02/21 at 0900 Given 02/02/2021 6:25 PM [employer] 40 mg Given 02/02/2021 8:10 AM [employer] 40 mg gadobutrol injection 0.01-30 mL (GADAVIS T) Given 02/03/2021 12:35 PM [employer] 8 mL 0.01-30 mL, intravenous, Once in imaging, contrast, Starting on Tue02/03/21 at 1235, For 1 dose, Imaging Protocol Orders, Dose per Radiant Medication Guidelines heparin (porcine) Given 02/02/2021 6:29 AM [employer] 5,000 Units Left Lower Abdomen injection 5,000 Units 5,000 Units, subcutaneous, Every 8 hours scheduled, First dose on Tue02/01/21 at 0600 Given 02/01/2021 9:17 PM [employer] 5,000 Units Right Lower Abdomen Given 02/01/2021 1:56 PM [employer] 5,000 Units Right Lower Abdomen lamoTRIgine tablet 200 mg (LaMICtal) Given 02/03/2021 9:29 AM [employer] 200 mg 200 mg, oral, 2 times daily, First dose (after last modification) on 01/31/21 at 2245 Given 02/02/2021 8:09 PM [employer] 200 mg Given 02/02/2021 8:11 AM [employer] 200 mg lidocaine 5 % 1 patch Medication Applied 01/31/2021 10:44 PM 1 patch Upper Back (LIDODERM) [employer] 1 patch, transdermal, Administer over 12 Hours, Daily, First dose on 01/31/21 at 2200, Remove after 12 hours. lidocaine 5 % ointment 1 application Given 02/02/2021 2:33 A M [employer] 1 application (XYLOCAINE) 1 application, topical, 3 times daily PRN, mild pain or score 1-3 of 10, Starting on Tue02/01/21 at 1114, MAX of 20 g of ointment/day Given 02/01/2021 5:18 PM [employer] 1 application loratadine tablet 10 mg (CLARITIN) Given 02/03/2021 9:30 AM [employer] 10 mg 10 mg, oral, Daily, First dose on Tue02/01/21 at 0900, loratadine 10 mg oral daily was interchanged for cetirizine 5 mg oral twice daily Given 02/02/2021 8:11 AM [employer] 10 mg Given 02/01/2021 9:12 AM [employer] 10 mg magnesium oxide tablet 400 mg (MAG-OX) Given 02/02/2021 8:09 PM [employer] 400 mg 400 mg, oral, Daily at bedtime, First dose on Tue02/01/21 at 2100, magnesium oxide 400 mg daily was interchanged for magnesium gluconate 500 mg daily Given 02/01/2021 9:17 PM [employer] 400 mg meclizine tablet 25 mg (ANTIVERT) Given 02/02/2021 3:01 AM [employer] 25 mg 25 mg, oral, 3 times daily PRN, dizziness, Starting on Tue02/01/21 at 0211 Given 02/01/2021 9:19 AM [employer] 25 mg meclizine tablet 25 mg (ANTIVERT) Given 02/02/2021 8:09 PM [employer] 25 mg 25 mg, oral, 4 times [...] 1 patch Left Shoulder patch (NICODERM CQ) [employer] 1 patch, transdermal, Administer over 24 Hours, Daily, First dose on Tue02/01/21 at 0900 Medication Applied 02/02/2021 8:14 AM [employer] 1 patch Right Arm Medication Applied 02/01/2021 9:13 AM [employer] 1 patch Left Shoulder nicotine 21 mg/24 hr 1 Medication Applied 02/03/2021 2:55 PM 1 patch Left Shoulder patch (NICODERM CQ) [employer] 1 patch, transdermal, Administer over 24 Hours, Daily, First dose on Tue02/03/21 at 1330 ondansetron ODT disintegrating tablet 4 mg Given 02/02/2021 10:2 4 PM [employer] 4 mg (ZOFRAN-ODT) 4 mg, oral, Every 8 hours PRN, nausea, Starting on 3/6/21 at 2228, When splitting ODT at bedside, handle with gloves and a pill splitter to prevent moisture contact. Given 02/02/2021 2:36 PM [employer] 4 mg Given 02/01/2021 1:12 AM [employer] 4 mg oxyCODONE IR tablet 10 mg (ROXICODONE) Given 02/03/2021 5:02 PM [employer] 10 mg 10 mg, oral, Every 6 hours PRN, moderate pain or score 4-6 of 10, Starting on 01/31/21 at 2229 Given 02/03/2021 2:42 AM [employer] 10 mg Given 02/02/2021 8:08 PM [employer] [address] tablet 40 mg (PROTONIX) Given 02/03/2021 4:58 PM [employer] 40 mg 40 mg, oral, 2 times daily before breakfast and dinner, First dose on 02/01/21 at 0700, pantoprazole 40 mg oral twice daily was interchanged for esomeprazole 20 or 40 mg oral twice daily Swallow whole. Do NOT crush, chew, or split tablet. Given 02/03/2021 6:56 AM [employer] 40 mg Given 02/02/2021 6:25 PM [employer] 40 mg pregabalin capsule 150 mg (LYRICA) Given 02/01/2021 9:12 AM [employer] 150 mg 150 mg, oral, Every morning, First dose on 02/01/21 at 0900 pregabalin capsule 300 mg (LYRICA) Given 01/31/2021 11:16 PM [employer] 300 mg 300 mg, oral, Every evening, First dose on 01/31/21 at 2300 pregabalin capsule 300 mg (LYRICA) Given 02/03/2021 9:28 AM [employer] 300 mg 300 mg, oral, Every morning, First dose (after last modification) on 02/02/21 at 0900 Given 02/02/2021 8:10 AM [employer] 300 mg pregabalin capsule 600 mg (LYRICA) Given 02/02/2021 8:09 PM [employer] 600 mg 600 mg, oral, Daily at bedtime, First dose (after last modification) on 02/01/21 at 2100 Given 02/01/2021 9:17 PM [employer] 600 mg promethazine injection 6.25 mg (PHENERGA N) Given 02/01/2021 12:47 PM [employer] 6.25 mg 6.25 mg, intravenous, Once, On 02/01/21 at 1030, For 1 dose QUEtiapine tablet 50 mg (SEROquel) Given 02/03/2021 12:39 AM [employer] 50 mg 50 mg, oral, Bedtime PRN, agitation/sleep, Starting on 02/01/21 at 1310 rOPINIRole tablet 2 mg (REQUIP) Given 02/03/2021 2:42 AM [employer] 2 mg 2 mg, oral, Daily PRN, restless legs, Starting on 01/31/21 at 2233 sennosides-docusate sodium 8.6-50 mg per Given 02/03/2021 9: 27 AM [employer] 2 tablets tablet 2 tablet (SENOKOT-S) 2 [...] 300 mg (ZONEGRAN) Given 02/03/2021 9:28 AM [employer] 300 mg 300 mg, oral, 2 times daily, First dose (after last modification) on 01/31/21 at 2245, Swallow whole. Do NOT crush, chew or open capsule. Given 02/02/2021 8:09 PM [employer] 300 mg Given 02/02/2021 8:53 AM [employer] 300 mg documented in this encounter Active and Recently Administered Medications Times are shown in [employer]. Scheduled Medication Order 02/01/2021 02/02/2021 02/03/2021 apixaban tablet 5 mg (ELIQUIS) 2008 (Given - Pro vider: Marlene Grover RRebekah.) 3691 (Given - Provider: Karma Cervantes R.N.) 5 [...] Rudolph R.N.) 08 (Given - Provider: Leatha Vasqeuz R.N.)2008 (Given - Provider: Marlene Grover R.N.) [...] Group 1) 211 7 (Given - Provider: Mague Rudolph R.N.) 2008 (Given - Provider: [...] Santiago) 0815 (See Alternative - Provider: Leatha Vasquez R.N.) 0927 (See Alternative - Provider: Karma [...] application (XYLOCAINE) 1718 (Given - Provider: Valarie Grayson R.N.) 0233 (Given - Provider: Mague Rudolph R.N.) 1 application, topical, 3 times daily NV N, mild pain or score 1-3 of [...] (ZOFRAN-ODT ) 0112 (Given - Provider: Rica Jon R.N.) 1436 (Given - Provider: Leatha chavez [...] COVID19 Pending 01/31/2021 01/31/2021 01/31/2021 10:53 PM [employer] Assessment Noted Time PHQ-9 Depression Total Score: 23 02/02/2021 11:[address] documented as of this encounter
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
--- OUTSIDE RECORDS SUMMARY | 2022-07-06 15:38 | XMS_ITS | Encounter Summary ---
:1965 Author Organization [facility] Address [address] [place] [address] Care Team Providers Name Role Phone Unavailable Primary Care Provider Unavailable Reason for Visit Reason Onset Date Comments saul med request 02/03/2021 Encounter Details Date Type Department Care Team Description 02/03/2021 Clinical Communication Department of [facility], trinidad Mccarthy med request Nicotine Dependence, M.S., C.T.T.S., [facility] in [address] [place] [address] [place], [place] [phone] (Work) [phone] Social History Tobacco Use Types Packs/Day Years [...] you attend gnosticism or Patient refused 2021 denominational services? 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
--- OUTSIDE RECORDS SUMMARY | 2022-07-06 15:38 | XMS_ITS | Encounter Summary ---
:1965 Author Organization [facility] Address [address] [place] [address] Care Team Providers Name Role Phone Unavailable Primary Care Provider Unavailable Encounter Details Date Type Department Care Team Description 02/11/2021 Ancillary Procedure Department of Radiology Ridge Vega in [facility] raúl Quintana 200 [facility] 200 [place] [phone] (Wo rk) Social History Tobacco Use Types [...] you attend denominational or Patient refused 2021 mormonism services? Do [...] bilateral thalami (series 3 image 36), bilateral BRIM AND CROWN PRESSER 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 bilateral thalami (series 3 image 36), bilateral BRIM AND CROWN PRESSER 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 bilateral thalami (series 3 image 36), bilateral BRIM AND CROWN PRESSER 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 bilateral thalami (series 3 image 36), bilateral BRIM AND CROWN PRESSER 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 bilateral thalami (series 3 image 36), bilateral BRIM AND CROWN PRESSER 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 bilateral thalami (series 3 image 36), bilateral BRIM AND CROWN PRESSER 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
--- OUTSIDE RECORDS SUMMARY | 2022-07-06 15:38 | XMS_ITS | Encounter Summary ---
:1965 Author Organization [facility] Address [address] [place] [address] Care Team Providers Name Role Phone Unavailable Primary Care Provider Unavailable Encounter Details Date Type Department Care Team Description 02/16/2021 Anesthesia Event Department of Radiology Liban Sunshine APRN, TECHNOLOGY RECRUITER, DNAP [address] [place] [phone] in [facility] Deep Velasquez M.D. [address] [place] [phone] [place] [phone] Anesthesia Record Procedure Summary Procedure Name Responsible Anesthesia Start Anesthesia Stop Anesthesiologist Time Time IR CEREBRAL Liban Sunshine APRN, 02/16/21 0825 02/16/21 1100 INTRACRANIAL ARTERY TECHNOLOGY RECRUITER, DNAP EMBOLIZATION Events Date Time Event Comment [...] h andoff to the receiving staff during [facility] ch we 1. Identified the patient [...] 1,000 units/mL injection 6,000 Units heparin standard 20843 Units/250 mL in 0.45 % Sodium C [...] you attend taoism or Patient refused 2021 zoroastrian services? Do you belong to any clubs or No 05/17/2022 organizations such as taoism groups, unions, [employer] or athletic groups, or school groups? How [...] Room / Location: Department of Radiology in [place], [place] Anesthesia Start: 824 Anesthesia Stop: 1100 [...] Dr. Castillo. Location: Department of Radiology in [place], [place] Pertinent components of the patient's history [...] with patient /legal guardian or through an property technician. Risks/Benefits/Alternatives of Blood transfusion discussed with patient [...]
--- OUTSIDE RECORDS SUMMARY | 2022-07-06 15:39 | XMS_ITS | Encounter Summary ---
:1965 Author Organization [facility] Address [address] [place] [address] Care Team Providers Name Role Phone Unavailable Primary Care Provider Unavailable Reason for Referral Outpatient (Routine) - Closed Specialty Diagnoses / Procedures Referred By Contact Clyde bains To Contact Neurology Robert Diehl M. D. [facility] [address] [place] [address] Referral ID Status Reason Start Date Expiration Date Visits Requ ested Visits Authorized [id number] Closed 09/15/2020 09/15/2021 1 1 Reason for Visit Appointment Request (Routine) - Closed Specialty Diagnoses / Procedures Referred By Contact Clyde bains To Contact Neurology Referral ID Status Reason Start Date Expiration Date Visits Requ ested Visits Authorized [id number] Closed 07/31/2020 07/31/2021 1 1 Encounter Details Date Type Department Care Team Description 09/15/2020 Virtual Visit Department of Robert Diehl [place] An eurysm Nonruptured (HCC) (Primary Dx); Neurology in M.D. Nicotine Dependence ; [place], [place] [address] [facility] Aneurysm Cerebral Unruptured (HCC) [address] [place] [phone] Social History Tobacco Use Types Packs/Day Years [...] you attend voodoo or Patient refused 2021 taoist services? Do [...] via the telephone and not in a [id number] manner. Ms. Mosquera is a 55-year-old woman [...] Name Type Priority Associated Diagnoses Order S [facility] Neurology office Outpatient Referral Routine Expe [...] nt right vertebral artery. RADHA, MCA, and motion picture critic are patent. Neck MRA: Conventional three-vessel arch [...] nt right vertebral artery. RADHA, MCA, and motion picture critic are patent. Neck MRA: Conventional three-vessel arch [...]
--- OUTSIDE RECORDS SUMMARY | 2022-07-06 15:39 | XMS_ITS | Encounter Summary ---
:1965 Author Organization [facility] Address [address] [place] [address] Care Team Providers Name Role Phone Unavailable Primary Care Provider Unavailable Encounter Details Date Type Department Care Team Description 01/20/2021 Anticoagulation Visit Department of Neurology Elvira Villalta in [facility] raúl SkaggsNBritton [address] [place] [phone] Social History Tobacco Use Types Packs/Day Years [...] you attend voodoo or Patient refused 2021 quaker services? Do [...] documented as of this encounter Progress Notes Elvria Villalta R.N. - 01/20/2021 11:58 AM CST I received a call from Dr. Rosalva Aguila's nurse at [facility]. She states they have received our fax [...] Transfer of anticoagulation management back to PCP. TECHNOLOGIST documented in this encounter Plan of Treatment Not on filedocumented as of this encounter Visit Diagnoses Not on filedocumented in this encounter Additional Health Concerns Assessment Noted Time PHQ-9 Depression Total Score: 5 04/05/2019 8:00 AM CDT documented as of this encounter
--- OUTSIDE RECORDS SUMMARY | 2022-07-06 15:39 | XMS_ITS | Encounter Summary ---
:1965 Author Organization [facility] Address [address] [place] [address] Care Team Providers Name Role Phone Unavailable [...] you attend restoration or Patient refused 2021 episcopalian services? Do [...] 01/08/2020 3:15 Results for this EXAM PM FRONT DESK ASSISTANT procedure are i n the results section. documented in this encounter Results NOSE-Otorhinolaryngology Image Exam (01/08/2020 3:15 PM FRONT DESK ASSISTANT) Specimen (Source) Anatomical Collection Method Collection Time Re ceived Time Location / / Volume Laterality 01/08/2020 3:11 PM FRONT DESK ASSISTANT Narrative IIMS - 01/08/2020 3:29 PM FRONT DESK ASSISTANT This order has been created and auto-finalized [...]
--- OUTSIDE RECORDS SUMMARY | 2022-07-06 15:39 | XMS_ITS | Encounter Summary ---
:1965 Author Organization [facility] Address [address] [place] [address] Care Team Providers Name Role Phone Unavailable Primary Care Provider Unavailable Encounter Details Date Type Department Care Team Description 08/06/2020 Clinical Communication Department of Honorio, Otorhinolaryngology in [place], [place] [address] [place] [address] [facility] [phone] [place] [phone] Social History Tobacco Use Types Packs/Day Years [...] you attend orthodox or Patient refused 2021 gnosticist services? Do you belong to any clubs [...] states that she had them done at [facility]. I called the facility and requested that [...] she had a CT Scan today in [place]. If her doctor there feels she needs [...]
--- OUTSIDE RECORDS SUMMARY | 2022-07-06 15:39 | XMS_ITS | Encounter Summary ---
:1965 Author Organization [facility] Address 200 [place] [address] Care Team Providers Name Role Phone Unavailable Primary Care Provider Unavailable Reason for Referral MRI/CAT/PET Scan (Routine) - Closed Specialty Diagnoses / Procedures Referred By Contact Refer red To Contact Radiology Diagnoses Robert Akhtar M.D. [facility] Procedures CT Head Neck Angiogram with IV Contrast 200 [place] [address] Referral ID Status Reason Start Date Expiration Date Visits Requ ested Visits Authorized [id number] Closed 12/30/2020 12/30/2021 1 1 M PRESSER MRI/CAT/PET Scan (Routine) - Closed Specialty Diagnoses / Procedures Referred By Contact Refer red To Contact Radiology Diagnoses Stroke Cerebrovascular Accident Personal History Robert Diehl M.D. [facility] Procedures CT Head without IV Contrast [address] [place] [address] Referral ID Status Reason Start Date Expiration Date Visits Requ ested Visits Authorized [id number] Closed 12/30/2020 12/30/2021 1 1 M PRESSER Reason for Visit MRI/CAT/PET Scan (Routine) - Closed Specialty Diagnoses / Procedures Referred By Contact Refer red To Contact Radiology Diagnoses Ataxia Robert Diehl M.D. [facility] Procedures CT Head Neck Angiogram with IV Contrast [address] [place] [address] Referral ID Status Reason Start Date Expiration Date Visits Requ ested Visits Authorized [id number] Closed 12/30/2020 12/30/2021 1 1 Encounter Details Date Type Department Care Team Description 12/31/2020 Hospital Encounter Department of Robert Diehl Stroke Cerebrovascular Accident Personal History; Radiology in [place] Ataxia [place], [facility] [address] [place], [place] [address] [facility] [address] [place], [place] [phone] (Work) [phone] Social History Tobacco Use Types Packs/Day Years [...] you attend mu-ism or Patient refused 2021 orthodoxy services? Do [...] Robert Diehl M.D. - 12/31/2020 5:17 PM BOSOM PRESSER I called and discussed the results with [...] by: Robert Diehl M.D. 12/31/20 5:16 PM BOSOM PRESSER Stroke Cerebrovascular Accident Personal History Plan: CT Head without IV Contrast, CT Head without IV Contrast Ataxia Plan: CT Head Neck Angiogram with IV Contrast, CT Head Neck Angiogram with IV Contrast M PRESSER documented in this encounter Plan of Treatment Not on filedocumented as of this encounter Procedures Procedure Name Priority Date/Time Associated Diagnosis Comme nts CT HEAD WITHOUT RAD - Routine 12/31/2020 3:34 Stroke Results for IV CONTRAST (most inpatients PM BOSOM PRESSER Cerebrovascular this pro cedure and all Accident Personal are in the outpatients) History results section. CT HEAD NECK RAD - Routine 12/31/2020 3:34 Ataxia Results for ANGIOGRAM WITH (most inpatients PM BOSOM PRESSER this proc edure IV CONTRAST and all are in the outpatients) results section. documented in this encounter Results CT Head Neck Angiogram with IV Contrast (12/31/2020 3:34 PM BOSOM PRESSER) Anatomical Region Laterality Modality Head and Neck, Neuroradiology RST LOS, N/A C omputed Tomography, Computed Neuroradiology ARZ LOS, Neuroradiology T omography FLA LOS Specimen (Source) Anatomical Collection Method Collection Time Re ceived Time Location / / Volume Laterality 12/31/2020 3:49 PM BOSOM PRESSER Impressions 12/31/2020 4:54 PM BOSOM PRESSER 1. Evolving right cerebellar infarct with decreased [...] oid ICA aneurysms. Narrative 12/31/2020 4:54 PM BOSOM PRESSER EXAM: CT HEAD WITHOUT IV CONTRAST, CT [...] Findings discussed with ordering physicDr. Fazal crandall ([id number]) at 4:54 PM on 12/31/2020. Procedure Note [...] Findings discussed with ordering physici anDr. Diehl ([id number]) at 4:54 PM on 12/31/2020. IMPRESSION: 1. [...] Head without IV Contrast (12/31/2020 3:34 PM BOSOM PRESSER) Anatomical Region Laterality Modality Head, Neuroradiology RST LOS, N/A Computed T omography, Computed Neuroradiology ARZ LOS, Neuroradiology T omography FLA LOS Specimen (Source) Anatomical Collection Method Collection Time Re ceived Time Location / / Volume Laterality 12/31/2020 3:49 PM BOSOM PRESSER Impressions 12/31/2020 4:54 PM BOSOM PRESSER 1. Evolving right cerebellar infarct with decreased [...] oid ICA aneurysms. Narrative 12/31/2020 4:54 PM BOSOM PRESSER EXAM: CT HEAD WITHOUT IV CONTRAST, CT [...] Findings discussed with ordering physicDr. Fazal crandall ([id number]) at 4:54 PM on 12/31/2020. Procedure Note [...] discussed with ordering physici Dr. Fazal abbasi ([id number]) at 4:54 PM on 12/31/2020. IMPRESSION: 1. [...] mg iodine/mL solution Given 12/31/2020 3:34 PM BOSOM PRESSER 1 00 mL 1-200 mL (OMNIPAQUE) 1-200 mL, intravenous, Once in imaging, contrast, Starting on Tue12/31/20 at 1411, For 1 dose, Imaging Protocol Orders, Dose per Radiant Medication Guidelines sodium chloride (PF) 0.9 % injection 1-1 00 mL Given 12/31/2020 3:34 PM BOSOM PRESSER 35 mL 1-100 mL, intravenous, Once, On Tue12/31/20 at 1415, For 1 dose, Imaging Protocol Orders documented in this encounter Additional Health Concerns Assessment Noted Time PHQ-9 Depression Total Score: 5 04/05/2019 8:00 AM CDT documented as of this encounter
--- OUTSIDE RECORDS SUMMARY | 2022-07-06 15:39 | XMS_ITS | Encounter Summary ---
:1965 Author Organization [facility] Address [address] [place] [address] Care Team Providers Name Role Phone Unavailable Primary Care Provider Unavailable Encounter Details Date Type Department Care Team Description 01/20/2021 Clinical Communication Department of Elvira Villalta, Neurology in [place], [place] [address] [place] [address] [address] [place] [phone] Social History Tobacco Use Types Packs/Day Years [...] you attend pentecostalism or Patient refused 2021 bahai services? Do [...]
--- OUTSIDE RECORDS SUMMARY | 2022-07-06 15:39 | XMS_ITS | Encounter Summary ---
:1965 Author Organization [facility] Address [address] [place] [address] Care Team Providers Name Role Phone Unavailable Primary Care Provider Unavailable Reason for Visit Reason Comments Tahmina/Fazal Encounter Details Date Type Department Care Team Description 01/26/2021 Clinical Communication Department of Robert Diehl W8B/Scharf Neurology in .. [place], [place] 200 [facility] 200 [place] [address] [phone] Social History Tobacco Use Types Packs/Day Years [...] you attend mu-ism or Patient refused 2021 gnosticist services? Do [...] 01/26/2021 5:19 PM CST Great thank you ESS SAFETY SPECIALIST Addendum Note - Robert Diehl M.D. - 01/26/2021 2:50 PM PROCESS SAFETY SPECIALIST Addended by: ROBERT DIEHL on: 01/26/2021 02:50 PM Modules accepted: Orders ESS SAFETY SPECIALIST Telephone Encounter - Robert Diehl M.D. - 01/26/2021 2:49 PM CST Believe MRI is ordered now. ESS SAFETY SPECIALIST Telephone Encounter - Robert Diehl M.D. - 01/26/2021 2:47 PM CST I am sorry to learn of the patient's additional symptoms Unfortunately we cannot react as quickly as the emergency department which was recommended locally I will order a brain MRI and in-person or video visit to follow-up. Thank you ESS SAFETY SPECIALIST Telephone Encounter - Allyssa Amaya - 01/26/2021 12:56 PM CST Patient calls checking the status of this request. Thank you. ESS SAFETY SPECIALIST documented in this encounter Plan of Treatment Not on filedocumented as of this encounter Visit Diagnoses Diagnosis Stroke Cerebrovascular Accident Personal History - Primary documented in this encounter Additional Health Concerns Assessment Noted Time PHQ-9 Depression Total Score: 5 04/05/2019 8:00 AM CDT documented as of this encounter
--- OUTSIDE RECORDS SUMMARY | 2022-07-06 15:39 | XMS_ITS | Encounter Summary ---
:1965 Author Organization [facility] Address [address] [place] [address] Care Team Providers Name Role Phone Unavailable Primary Care Provider Unavailable Reason for Visit Outpatient (Routine) - Closed Specialty Diagnoses / Procedures Referred By Contact Refer red To Contact Otorhinolaryngology Darlin Olmedo M.D . [facility] [address] [place] [phone] Referral ID Status Reason Start Date Expiration Date Visits Requ ested Visits Authorized [id number] Closed 12/18/2019 12/17/2020 1 1 Encounter Details Date Type Department Care Team Description 01/08/2020 Office Visit Department of Darlin Olmedo Mucocele Nasa l Sinus Otorhinolaryngology jimmy Brumfield M.D. (Primary Dx) [address] [place] [phone] Social History Tobacco Use Types [...] you attend scientology or Patient refused 2021 protestant services? Do you belong to any clubs or No 05/17/2022 organizations such as scientology groups, unions, fravendome 1699 or athletic groups, or school groups? How [...] She will continue saline irrigations and Flonase. BALL COACH Associated attestation - Darlin Olmedo M.D. - 01/16/2020 5:45 PM BASEBALL COACH I saw and evaluated the patient, participating [...]
--- OUTSIDE RECORDS SUMMARY | 2022-07-06 15:39 | XMS_ITS | Encounter Summary ---
:1965 Author Organization [facility] Address [address] [place] [address] Care Team Providers Name Role Phone Unavailable Primary Care Provider Unavailable Reason for Visit Reason Comments Michel Encounter Details Date Type Department Care Team Description 09/11/2020 Clinical Communication Department of Robert Diehl W8B/Scharf Neurology in [place], [place] 200 [facility] 200 [place] [phone] Social History Tobacco Use Types Packs/Day Years [...] you attend rastafari or Patient refused 2021 tenriism services? Do [...]
--- OUTSIDE RECORDS SUMMARY | 2022-07-06 15:39 | XMS_ITS | Encounter Summary ---
:1965 Author Organization [facility] Address [address] [place] [address] Care Team Providers Name Role Phone Unavailable Primary Care Provider Unavailable Reason for Referral MRI/CAT/PET Scan (Routine) - Closed Specialty Diagnoses / Procedures Referred By Contact Refer red To Contact Radiology Diagnoses Ataxia Robert Fowler M.D. [facility] Procedures CT Head Neck Angiogram with IV Contrast 200 [place] [address] Referral ID Status Reason Start Date Expiration Date Visits Requ ested Visits Authorized [id number] Closed 12/31/2020 12/31/2021 1 1 OSIVE ORDNANCE TECHNICIAN Outpatient (Routine) - Closed Specialty Diagnoses / Procedures Referred By Contact Refer red To Contact Video Medicine Diagnoses Stroke Cerebrovascular Accident Personal History Robert Fowler [facility] Margot Quintana [address] [place] [address] Referral ID Status Reason Start Date Expiration Date Visits Requ ested Visits Authorized [id number] Closed 12/30/2020 12/30/2021 1 1 OSIVE ORDNANCE TECHNICIAN MRI/CAT/PET Scan (Routine) - Closed Specialty Diagnoses / Procedures Referred By Contact Refer red To Contact Radiology Diagnoses Ataxia Robert Fowler M.D. [facility] Procedures CT Head Neck Angiogram with IV Contrast 200 [place] [address] Referral ID Status Reason Start Date Expiration Date Visits Requ ested Visits Authorized [id number] Closed 12/30/2020 12/30/2021 1 1 OSIVE ORDNANCE TECHNICIAN MRI/CAT/PET Scan (Routine) - Closed Specialty Diagnoses / Procedures Referred By Contact Refer red To Contact Radiology Diagnoses Stroke Cerebrovascular Accident Personal History Robert Fowler M.D. [facility] Procedures CT Head without IV Contrast [address] [place] [address] Referral ID Status Reason Start Date Expiration Date Visits Requ ested Visits Authorized [id number] Closed 12/30/2020 12/30/2021 1 1 OSIVE ORDNANCE TECHNICIAN Reason for Visit Reason Comments Symptom Assessment Encounter Details Date Type Department Care Team Description 12/22/2020 Clinical Communication Department of Robert Fowler mptom Assessment Neurology jimmy Celaya M.D. [place], [address] [place], [place] [address] [facility] [address] [place], [place] [phone] [address] (Work) [phone] Social History Tobacco Use Types Packs/Day Years [...] you attend advent or Patient refused 2021 evangelical services? Do [...] Robert Fowler M.D. - 12/31/2020 5:17 PM EXPLOSIVE ORDNANCE TECHNICIAN Addended by: ROBERT FOWLER on: 12/31/2020 05:17 PM Modules accepted: Orders OSIVE ORDNANCE TECHNICIAN Addendum Note - Robert Fowler M.D. - 12/30/2020 8:34 AM EXPLOSIVE ORDNANCE TECHNICIAN Addended by: ROBERT FOWLER on: 12/30/2020 08:34 AM Modules accepted: Orders OSIVE ORDNANCE TECHNICIAN Telephone Encounter - Zuly Alex R.N. - 12/29/2020 4:48 PM CST The patient telephones back today. She did present to the local ED in [place] for evaluation of her vertigo. She shares [...] needs to get in contact with her [facility] neurologist. The patient reports that at [...] 911 or have someone drive her to [facility] as well. She agrees to call 911 for recurrent episodes. RECOMMENDED LEVEL OF CARE. The patient/caller is willing and able to follow the nurse's recommendation. RESPONSE TO ADVICE GIVEN. Patient/caller able to teach back. REFERENCES UTILIZED. Nursing clinical judgment utilized. Other interventions or information: Provider advice. TYPE OF PHONE CALL. Symptom assessment. OSIVE ORDNANCE TECHNICIAN Telephone Encounter - Robert Fowler M.D. - [...] by: Robert Fowler M.D. 12/23/20 8:21 AM EXPLOSIVE ORDNANCE TECHNICIAN OSIVE ORDNANCE TECHNICIAN Telephone Encounter - Zuly Alex R.N. - 12/22/2020 5:25 PM CST 5:17 pm. Tried calling to assure she could reach her son to take her to the ED. No answer. OSIVE ORDNANCE TECHNICIAN Telephone Encounter - Zuly Alex R.N. - [...] her to the nearest emergency room or [id number]. She expressed concerns about going to the [...] the nearest ED which would be in [place]. He did not answer. I offered to [...] advice. TYPE OF PHONE CALL. Symptom assessment. OSIVE ORDNANCE TECHNICIAN Telephone Encounter - Robert Folwer M.D. - 12/22/2020 3:29 PM CST Please call patient in triage whether she needs to be seen in the local emergency department for concern of acute stroke? OSIVE ORDNANCE TECHNICIAN documented in this encounter Plan of Treatment Scheduled Referrals Name Type Priority Associated Diagnoses Order S chedule Video anyplace Outpatient Referral Routine Stroke Cerebrovascu lar Expected: visit Accident Personal 12/30/2020 , History Expires: 12/30/2023 documented as of this encounter Results CT Head Neck Angiogram with IV Contrast (01/30/2021 3:24 PM EXPLOSIVE ORDNANCE TECHNICIAN) Anatomical Region Laterality Modality Head and Neck, Neuroradiology RST LOS, N/A C omputed Tomography, Computed Neuroradiology ARZ LOS, Neuroradiology T omography FLA LOS Specimen (Source) Anatomical Collection Method Collection Time Re ceived Time Location / / Volume Laterality 01/30/2021 2:25 PM EXPLOSIVE ORDNANCE TECHNICIAN Impressions 01/30/2021 3:18 PM EXPLOSIVE ORDNANCE TECHNICIAN 1. 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 Slightly decreased high-grade stenosis a t the V3/4 junction with increased flow in the distal V4 segment. 2. Evolving, now chronic right cerebella r infarct. 3. 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 Narrative 01/30/2021 3:18 PM EXPLOSIVE ORDNANCE TECHNICIAN EXAM: CT HEAD NECK ANGIOGRAM WITH IV [...] normal caliber bilater al MCAs, ACAs and molten iron pourer. Patent anterior and right posterior communicating arteri [...] normal caliber bilater al MCAs, ACAs and molten iron pourer. Patent anterior and right posterior communicating arteri [...] Angiogram with IV Contrast (12/31/2020 3:34 PM EXPLOSIVE ORDNANCE TECHNICIAN) Anatomical Region Laterality Modality Head and Neck, Neuroradiology RST LOS, N/A C omputed Tomography, Computed Neuroradiology ARZ LOS, Neuroradiology T omography FLA [facility] Specimen (Source) Anatomical Collection Method Collection Time Re ceived Time Location / / Volume Laterality 12/31/2020 3:49 PM EXPLOSIVE ORDNANCE TECHNICIAN Impressions 12/31/2020 4:54 PM EXPLOSIVE ORDNANCE TECHNICIAN 1. Evolving right cerebellar infarct with decreased [...] oid ICA aneurysms. Narrative 12/31/2020 4:54 PM EXPLOSIVE ORDNANCE TECHNICIAN EXAM: CT HEAD WITHOUT IV CONTRAST, CT [...] Findings discussed with ordering Dr. Fazal ching ([id number]) at 4:54 PM on 12/31/2020. Procedure Note [...] Findings discussed with ordering physici anDr. Fowler ([id number]) at 4:54 PM on 12/31/2020. IMPRESSION: 1. [...] Head without IV Contrast (12/31/2020 3:34 PM EXPLOSIVE ORDNANCE TECHNICIAN) Anatomical Region Laterality Modality Head, Neuroradiology RST LOS, N/A Computed T omography, Computed Neuroradiology ARZ LOS, Neuroradiology T omography FLA LOS Specimen (Source) Anatomical Collection Method Collection Time Re ceived Time Location / / Volume Laterality 12/31/2020 3:49 PM EXPLOSIVE ORDNANCE TECHNICIAN Impressions 12/31/2020 4:54 PM EXPLOSIVE ORDNANCE TECHNICIAN 1. Evolving right cerebellar infarct with decreased [...] oid ICA aneurysms. Narrative 12/31/2020 4:54 PM EXPLOSIVE ORDNANCE TECHNICIAN EXAM: CT HEAD WITHOUT IV CONTRAST, CT [...] discussed with ordering physici Dr. Fazal abbasi ([id number]) at 4:54 PM on 12/31/2020. Procedure Note [...] Findings discussed with ordering Dr. Fazal ching ([id number]) at 4:54 PM on 12/31/2020. IMPRESSION: 1. [...]
--- OUTSIDE RECORDS SUMMARY | 2022-07-06 15:39 | XMS_ITS | Encounter Summary ---
:1965 Author Organization [facility] Address [address] [place] [address] Care Team Providers Name Role Phone Unavailable Primary Care Provider Unavailable Reason for Visit Reason Onset Date Comments Medication Question 01/08/2020 Encounter Details Date Type Department Care Team Description 01/08/2020 Clinical Department of [place], Medication Communication Otorhinolaryngology in [place], [place] Lilian [address] [place] [address] [place] [address] [place] [address] Social History Tobacco Use Types Packs/Day Years [...] you attend hindu or Patient refused 2021 baptist services? Do [...] not covered. Patient will do regular Flonase EMS SOFTWARE MANAGER Telephone Encounter - Donna Martines - 01/08/2020 4:21 PM CST [facility] called about the Fluticasone Propionate (Flonase) prescription that was put through today. The insurance will not cover it because at the end of the SIG it says Sensimist. Please call the pharmacy at [phone], or place another order. Thank you, Donna EMS SOFTWARE MANAGER documented in this encounter Plan of Treatment Not on filedocumented as of this encounter Visit Diagnoses Not on filedocumented in this encounter Additional Health Concerns Assessment Noted Time PHQ-9 Depression Total Score: 5 04/05/2019 8:00 AM CDT documented as of this encounter
--- OUTSIDE RECORDS SUMMARY | 2022-07-06 15:39 | XMS_ITS | Encounter Summary ---
:1965 Author Organization [facility] Address [address] [place] [address] Care Team Providers Name Role Phone Unavailable Primary Care Provider Unavailable Reason for Visit Reason Comments Initiate warfarin anticoagulation. Encounter Details Date Type Department Care Team Description 01/01/2021 Clinical Communication Department of Renny Mahoney warfarin Neurology in [place], R.N. anticoagulation. [address] [place] [address] [place], [place] [phone] (Work) [phone] Social History Tobacco Use Types Packs/Day Years [...] attend roman catholic or Patient refused 2021 uatsdin services? Do [...] PM CST RADHA Thompson, calls in from [facility] with INR results = 3.9. Please call her back at [phone] ERN CHART WRITER Telephone Encounter - Renny Mahoney R.N. - 01/05/2021 1:56 PM CST Mackenzie talked to her, she needs to go to the lab today. ERN CHART WRITER Telephone Encounter - Allyssa Amaya - 01/05/2021 11:14 AM CST Patient calls in regarding this. She is wanting this set up now so a nurse can come into her home and do this. She I believed mentions that a nurse comes into her home now. She would like a call to discuss. ERN CHART WRITER Telephone Encounter - Robert Diehl M.D. - 01/01/2021 4:46 PM CST Absolutely and thank you very much for coordinating this ERN CHART WRITER Addendum Note - Renny Mahoney R.N. - 01/01/2021 1:03 PM PATTERN CHART WRITER Addended by: RENNY MAHONEY on: 01/01/2021 01:03 PM Modules accepted: Orders ERN CHART WRITER Telephone Encounter - Renny Mahoney R.N. - 01/01/2021 12:45 PM CST I spoke to the patient by telephone today to discuss reinitiating warfarin. The patient referred by Dr. Argenis Diehl ([id number]). The patient's target INR is 2.0-3.0. 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 The anticipated duration of warfarin is exterminator. As per Dr. Diehl, the patient is to be instructed to discontinue the 325 mg aspirin once the target INR is reached. The patient shares that she is well aware of the risks/benefits and process of taking warfarin with regular INR monitoring. She declined the need for additional education by phone regarding anticoagulation. She would like to have her INRs drawn at [facility] with results faxed to [facility]. I spoke with her local primary care physician nurse about this as well. Once Dr. Diehl obtains imaging in about 3 months, we may consider transitioning her anticoagulation care to her local [facility]. The patient will take 5 mg warfarin nightly starting tonight 01/01/21, then have an INR drawn 01/05/21 at [facility] with results faxed to us. A prescription for warfarin 5 mg #30, take as directed, may refill X [address] [facility]. The patient reported an adequate understanding of her plan of care and expressed agreement with thisplan. RECOMMENDED LEVEL OF CARE. The patient/caller is willing and able to follow the nurse's recommendation. RESPONSE TO ADVICE GIVEN. Patient/caller able to teach back. REFERENCES UTILIZED. Nursing clinical judgment utilized. Other interventions or information: Provider advice. TYPE OF PHONE CALL. Medical information, care coordination. . ERN CHART WRITER Addendum Note - Renny Mahoney R.N. - 01/01/2021 9:43 AM PATTERN CHART WRITER Addended by: RENNY MAHONEY on: 01/01/2021 09:43 AM Modules accepted: Orders ERN CHART WRITER Telephone Encounter - Renny Mahoney R.N. - 01/01/2021 9:32 AM CST I have spoken with the pharmacist at [facility] in [place]. He notes that in 2018 when thepatient previously was treated with warfarin, she was taking 5 mg nightly for a period of time. Eventually some nights she was taking 7.5 mg nightly. The pharmacist reviewed potential medication interactions with the patient's current medication list. No serious interactions anticipated. As per Dr. Yeboah ([id number]), we will initiate 5 mg nightly. She will continue aspirin until therapeutic INR is reached. ERN CHART WRITER Telephone Encounter - Renny Mahoney R.N. - 01/01/2021 8:47 AM CST The patient has been experiencing episodes of vertigo, gait instability, with a fall, she was seen in the ED of [facility] on 12/22/20. Head CT was performed and sent to [facility] for Dr. Diehl's review. He noted possible [...] the patient's primary care team at the [facility]. I have discussed this with the patient who reports an ad equate understanding and agreement with this plan. RECOMMENDED LEVEL OF CARE. The patient/caller is willing and able to follow the nurse's recommendation. RESPONSE TO ADVICE GIVEN. Patient/caller able to teach back. REFERENCES UTILIZED. Nursing clinical judgment utilized. Other interventions or information: Provider advice. TYPE OF PHONE CALL. Care coordination. ERN CHART WRITER Telephone Encounter - Renny Mahoney R.N. - 01/01/2021 8:46 AM CST ----- Message from Robert Diehl M.D. sent at 12/31/2020 5:17 PM PATTERN CHART WRITER ----- I called and discussed the results [...] by: Robert Diehl M.D. 12/31/20 5:16 PM PATTERN CHART WRITER Stroke Cerebrovascular Accident Personal History Plan: CT Head without IV Contrast, CT Head without IV Contrast Ataxia Plan: CT Head Neck Angiogram with IV Contrast, CT Head Neck Angiogram with IV Contrast ERN CHART WRITER documented in this encounter Plan of Treatment Scheduled Orders Name Type Priority Associated Diagnoses Order S chedule Prothrombin Time (PT) Lab Routine Correction Anticoagu lant 50 Occurrences starting Treatment 01/01/2021 unti l 01/01/2024 documented as of this encounter Visit Diagnoses Diagnosis Fertilizer Processing Supervisor (Current) Anticoagulant Treatm ent - Primary documented in this encounter Additional Health Concerns Assessment Noted Time PHQ-9 Depression Total Score: 5 04/05/2019 8:00 AM CDT documented as of this encounter
--- OUTSIDE RECORDS SUMMARY | 2022-07-06 15:39 | XMS_ITS | Encounter Summary ---
:1965 Author Organization [facility] Address [address] [place] [address] Care Team Providers Name Role Phone Unavailable Primary Care Provider Unavailable Encounter Details Date Type Department Care Team Description 08/05/2020 Clinical Communication Department of [place], Otorhinolaryngology in [place], [place] [address] [place], [place] [phone] [facility] [phone] [place] [phone] Social History Tobacco Use Types Packs/Day Years [...] attend jehovah's witness or Patient refused 2021 jainism services? Do [...] called patient to schedule COVID testing at [facility] prior to appointment. Didn't answer so jessica [...]
--- OUTSIDE RECORDS SUMMARY | 2022-07-06 15:39 | XMS_ITS | Encounter Summary ---
:1965 Author Organization [facility] Address [address] [place] [address] Care Team Providers Name Role Phone Unavailable Primary Care Provider Unavailable Encounter Details Date Type Department Care Team Description 12/31/2020 Orders Only Department of Robert Diehl Stroke Cereb rovascular Accident Personal History (Primary Dx); Neurology in [place], [place]. Thrombosis Arterial (HCC) [place], [place] 200 [facility] 200 [place] [phone] Social History Tobacco Use Types Packs/Day Years [...] you attend anglican or Patient refused 2021 spiritism services? Do [...]
--- OUTSIDE RECORDS SUMMARY | 2022-07-06 15:39 | XMS_ITS | Encounter Summary ---
:1965 Author Organization [facility] Address [address] [place] [address] Care Team Providers Name Role Phone Unavailable Primary Care Provider Unavailable Encounter Details Date Type Department Care Team Description 01/07/2020 Diagnostic Division of Pulmonary Akhil Diehl M.D. [facility] in [place], [facility] [address] [place], [place] 200 [facility] [address] [place] [address] [phone] Social History Tobacco Use Types Packs/Day Years [...] you attend jainism or Patient refused 2021 alevism services? Do [...] Organization Address City/State/ZIP Code Phon e Number [facility] documented in this encounter Visit Diagnoses Diagnosis Fatigue documented in this encounter Additional Health Concerns Assessment Noted Time PHQ-9 Depression Total Score: 5 04/05/2019 8:00 AM CDT documented as of this encounter
--- OUTSIDE RECORDS SUMMARY | 2022-07-06 15:39 | XMS_ITS | Encounter Summary ---
:1965 Author Organization [facility] Address [address] [place] [address] Care Team Providers Name Role Phone Unavailable Primary Care Provider Unavailable Reason for Visit Reason Comments Follow-up [facility] Patient Encounter Details Date Type Department Care Team Description 12/29/2020 Clinical [facility] Neurology jimmy Celaya M.D. Patient) [place] [address] [place], [place] [address] [place] [phone] [place], [place] [phone] (Work) [phone] Social History Tobacco Use Types Packs/Day Years [...] you attend shinto or Patient refused 2021 pentecostalism services? Do [...] her know PCP needs to prescribe meclizine. ER OPERATOR Telephone Encounter - Allyssa Amaya - 12/29/2020 [...] ambulance for; one of which lasted over ozq-gpb-e-half days. She is having headaches, etc. 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
--- OUTSIDE RECORDS SUMMARY | 2022-07-06 15:39 | XMS_ITS | Encounter Summary ---
:1965 Author Organization [facility] Address [address] [place] [address] Care Team Providers Name Role Phone Unavailable Primary Care Provider Unavailable Encounter Details Date Type Department Care Team Description 12/07/2019 Anesthesia Event RST ROMB LUISA OR Leonides Walker, [address] [facility] [place] [address] [address] [place] [address] [place] [address] (Wo rk) Anesthesia Record Procedure [...] h andoff to the receiving staff during [facility] we 1. Identified the patient 2. Ident [...] Simin valentine, Jey García, (created via procedure COMMAND AND CONTROL SPECIALIST, PSYCHOMETRIST COMMAND AND CONTROL SPECIALIST, TY A documentation); Mask Ventilation: Easy mask; [...] many times do you More than three abrahna es a week 05/17/2022 talk on the phone with family, friends, or neighbors? How often do you get together with friends More than three t imes a week 05/17/2022 or relatives? How often do you attend adventist or Patient refused 2021 anabaptist services? Do you belong to any clubs or No 05/17/2022 organizations such as adventist groups, unions, [email or web address] or athletic groups, or school groups? How [...] Procedure Summary Date: 12/07/19 Room / Location: [place] [address] ROMB 01 580 / [facility] in [place], [place] Anesthesia Start: 1234 Anesthesia Stop: 1434 Procedures: SINUSOTOMY ENDOSCOPY FRONTAL. (Bilateral Nose) EXTRADURAL COMPUTER NAVIGATION. 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 Responsible Provider: Leonides Walker [...] Promethazine; otherwise, uneventful recovery with outpt dispo. RMARY ATTENDANT Anesthesia Procedure Notes - Gini Garcia APRN, [...] Procedure outcome: successful Airway event: no complications RMARY ATTENDANT Anesthesia Preprocedure Evaluation - Leonides Walker M.D. - 12/07/2019 11:59 AM CST Preprocedure Anesthesia & H&P Assessment Procedure Summary Date/Time: 12/07/19 1119 Procedures: SINUSOTOMY ENDOSCOPY FRONTAL. (Bilateral Nose) EXTRADURAL COMPUTER NAVIGATION. 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 Location: [place] [address] / [facility] in [place], [place] Provider: Darlin Olmedo M.D. 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 I will not pursue [...] with patient /legal guardian or through an interpreter for the deaf. The use of blood products not discussed Approval to Proceed: approved for anesthesia RMARY ATTENDANT documented in this encounter Plan of Treatment Not on filedocumented as of this encounter Procedures Procedure Name Priority Date/Time Associated Comments Diagnosis LDA ANE ENDOTRACHEAL Routine 12/07/2019 12:47 Res ults for this AIRWAY PM INFIRMARY ATTENDANT procedure are i n the results section. documented in this encounter Results LDA ANE ENDOTRACHEAL AIRWAY (12/07/2019 12:47 PM INFIRMARY ATTENDANT) Narrative Gini Garcia APRN, CRNA - 2019 12:47 PM INFIRMARY ATTENDANT Gini Garcia APRN, CRNA ? 12/07/2019 12:49 [...] dexamethasone injection (DECADRON) Given 12/07/2019 12:43 PM INFIRMARY ATTENDANT 4 mg As needed, Starting on Tue12/07/19 at 1243, Anesthesia Intra-op ePHEDrine (PF) injection Given 12/07/2019 12:48 PM INFIRMARY ATTENDANT 5 mg intravenous, As needed, Starting on Tue12/07/19 at 1242, Anesthesia Intra-op Given 12/07/2019 12:42 PM INFIRMARY ATTENDANT 25 mg fentaNYL injection 25 mcg (SUBLIMAZE) Given 12/07/2019 2:32 PM INFIRMARY ATTENDANT 25 mcg 25 mcg, intravenous, Every 2 min PRN, For pain 4 or greater (maximum 100 mcg). If max dose of Fentanyl is reached and if pain is greater than 4, discontinue Fentanyl: give Hydromorphone, Starting on Tue12/07/19 at 1145, Pre-Op lactated ringers New Bag 12/07/2019 12:39 PM INFIRMARY ATTENDANT intravenous, Continuous Infusion: Per Instructions PRN, Starting on Tue12/07/19 at 1239, Anesthesia Intra-op lidocaine (PF) (cardiac) injection Given 12/07/2019 12:40 PM INFIRMARY ATTENDANT 100 mg intravenous, As needed, Starting on Tue12/07/19 at 1240, Anesthesia Intra-op ondansetron (PF) injection (ZOFRAN) Given 12/07/2019 1:57 PM INFIRMARY ATTENDANT 4 mg intravenous, As needed, Starting on Tue12/07/19 at 1357, Anesthesia Intra-op phenylephrine injection Given 12/07/2019 12:50 PM INFIRMARY ATTENDANT 100 mcg intravenous, As needed, Starting on Tue12/07/19 at 1246, Anesthesia Intra-op Given 12/07/2019 12:48 PM INFIRMARY ATTENDANT 100 mcg Given 12/07/2019 12:46 PM INFIRMARY ATTENDANT 100 mcg propofol 10 mg/mL infusion Rate/Dose 12/07/2019 75 mcg/kg/min 34.4 m L/hr (DIPRIVAN) Change 12:46 PM INFIRMARY ATTENDANT intravenous, Continuous Infusion: Per Instructions PRN, Starting on Tue12/07/19 at 1241, Anesthesia Intra-op New Bag 12/07/2019 12:41 PM INFIRMARY ATTENDANT 250 mcg/kg/min 115 mL/hr propofol injection (DIPRIVAN) Given 12/07/2019 12:42 PM INFIRMARY ATTENDANT 100 mg intravenous, As needed, Starting on Tue12/07/19 at 1242, Anesthesia Intra-op remifentanil 20 mcg/mL in Rate/Dose 12/07/2019 1:43 0.1 mcg/kg/min 2 2.9 mL/hr NaCl 0.9% 100 mL infusion Change PM INFIRMARY ATTENDANT (ULTIVA) Continuous Infusion: Per Instructions PRN, Starting on Tue12/07/19 at 1246, Anesthesia Intra-op Rate/Dose Change 12/07/2019 12:53 PM INFIRMARY ATTENDANT 0.2 mcg/kg/min 45.8 mL/hr New Bag 12/07/2019 12:46 PM INFIRMARY ATTENDANT 0.25 mcg/kg/min 57.3 mL/hr succinylcholine (PF) injection (ANECTINE ) Given 12/07/2019 12:42 PM INFIRMARY ATTENDANT 10 mg intravenous, As needed, Starting on Tue12/07/19 at 1242, Anesthesia Intra-op vancomycin in NaCl 0.9% IVPB 1,250 mg Given 12/07/2019 12:51 PM INFIRMARY ATTENDANT 1.25 g 1,250 mg (rounded from 1,146 [...]
--- OUTSIDE RECORDS SUMMARY | 2022-07-06 15:39 | XMS_ITS | Encounter Summary ---
:1965 Author Organization [facility] Address [address] [place] [address] Care Team Providers Name Role Phone Unavailable Primary Care Provider Unavailable Encounter Details Date Type Department Care Team Description 01/05/2021 Anticoagulation Visit Department of Neurology Elvira Villalta in [facility] potato chip frier [place] [address] [facility] [address] [place] [phone] Social History Tobacco Use Types Packs/Day Years [...] you attend evangelical or Patient refused 2021 muslim services? Do [...] an INR at her outside clinic in [place], [place] today and I called the lab [phone] and was told she did not report [...] advised for today, she report to the [place] lab as scheduled. Ms. Mosquera states she will do that. RECOMMENDED LEVEL OF CARE. The patient/caller is willing and able to follow the nurse's recommendation. RESPONSE TO ADVICE GIVEN. Patient/caller able to teach back. REFERENCES UTILIZED. Nursing clinical judgment utilized. Other interventions or information: Provider advice. TYPE OF PHONE CALL. INR management EAR PHYSICS PROFESSOR Elvira Villalta R.N. - 01/05/2021 4:06 PM CST Patient's INR today is 1.47. Discussed with Dr. Neri Acevedo ([phone]) who advises that the patient take 7.5 [...] OF PHONE CALL. Test results, symptom assessment. EAR PHYSICS PROFESSOR documented in this encounter Plan of Treatment Not on filedocumented as of this encounter Procedures Procedure Name Priority Date/Time Associated Comments Diagnosis PROTHROMBIN TIME Routine 01/05/2021 3:15 PM Resul ts for this (PT), P NUCLEAR PHYSICS PROFESSOR procedure are i n the results section. documented in this encounter Results Prothrombin Time (PT) (01/05/2021 3:15 PM NUCLEAR PHYSICS PROFESSOR) P athologist Signature EXT INR 1.47 OTHER (SPECIFY IN MEDICAL DEVICE ENGINEER) Specimen (Source) Anatomical Collection Method Collection Time Re ceived Time Location / / Volume Laterality Blood (Blood, 01/05/2021 3:15 PM Venous) NUCLEAR PHYSICS PROFESSOR Narrative This result has an attachment that is no t available. Resulting Agency Comment [facility] Historical Provider LAB BLOOD ADD-ON Performing Organization Address City/State/ZIP Code Phon e Number OTHER (SPECIFY IN MEDICAL DEVICE ENGINEER) OTHER (SPECIFY IN MEDICAL DEVICE ENGINEER) N/A documented in this encounter Visit Diagnoses Not on filedocumented in this encounter Additional Health Concerns Assessment Noted Time PHQ-9 Depression Total Score: 5 04/05/2019 8:00 AM CDT documented as of this encounter
--- OUTSIDE RECORDS SUMMARY | 2022-07-06 15:39 | XMS_ITS | Encounter Summary ---
:1965 Author Organization [facility] Address [address] [place] [address] Care Team Providers Name Role Phone Unavailable [...] you attend religion or Patient refused 2021 anabaptist services? Do [...] 12/07/2019 12:15 Results for this EXAM PM CABLE TOWER OPERATOR procedure are i n the results section. documented in this encounter Results NOSE-Otorhinolaryngology Image Exam (12/07/2019 12:15 PM CABLE TOWER OPERATOR) Specimen (Source) Anatomical Collection Method Collection Time Re ceived Time Location / / Volume Laterality 12/07/2019 12:15 PM CABLE TOWER OPERATOR Narrative [facility] - 12/07/2019 2:07 PM CABLE TOWER OPERATOR This order has been created and auto-finalized [...]
--- OUTSIDE RECORDS SUMMARY | 2022-07-06 15:39 | XMS_ITS | Encounter Summary ---
:1965 Author Organization [facility] Address [address] [place] [address] Care Team Providers Name Role Phone Unavailable Primary Care Provider Unavailable Encounter Details Date Type Department Care Team Description 01/12/2021 Anticoagulation Visit Department of Neurology Zuly Alex in [facility] raúl [place] [address] [facility] [address] [place] [phone] Social History Tobacco Use Types Packs/Day Years [...] you attend moravian or Patient refused 2021 scientology services? Do [...] Target INR 2.0-3.[address] Argenis Diehl ([phone]). The patient was scheduled for an INR recheck on 01/09/21, however did not have an INR draw until late that afternoon. The results did not become available until after clinic hours. Patient's INR on 01/09/21 was 2.41. Discussed with Dr. Argenis Diehl ([phone]) who advises that the patient follow a [...] OF PHONE CALL. Test results, symptom assessment. ING MACHINE TENDER documented in this encounter Plan of Treatment Not on filedocumented as of this encounter Procedures Procedure Name Priority Date/Time Associated Diagnosis Comme nts PROTHROMBIN TIME (PT), Routine 01/09/2021 Resul ts for this P procedure are i n the results section . documented in this encounter Results Prothrombin Time (PT) (01/09/2021) P athologist Signature EXT INR 2.40 OTHER (SPECIFY IN INSPECTOR WATCH TRAIN) Specimen (Source) Anatomical Location Collection Method / Collectio n Time Received Time / Laterality Volume Blood (Blood, 01/09/2021 Venous) Narrative This result has an attachment that is no t available. Historical Provider LAB BLOOD ADD-ON Performing Organization Address City/State/ZIP Code Phon e Number OTHER (SPECIFY IN INSPECTOR WATCH TRAIN) OTHER (SPECIFY IN INSPECTOR WATCH TRAIN) N/A documented in this encounter Visit Diagnoses Not on filedocumented in this encounter Additional Health Concerns Assessment Noted Time PHQ-9 Depression Total Score: 5 04/05/2019 8:00 AM CDT documented as of this encounter
--- OUTSIDE RECORDS SUMMARY | 2022-07-06 15:39 | XMS_ITS | Encounter Summary ---
:1965 Author Organization [facility] Address [address] [place] [address] Care Team Providers Name Role Phone Unavailable [...] you attend mosque or Patient refused 2021 holiness services? Do [...] 12/18/2019 1:57 Results for this EXAM PM ASSEMBLER FINAL procedure are i n the results section. documented in this encounter Results NOSE-Otorhinolaryngology Image Exam (12/18/2019 1:57 PM ASSEMBLER FINAL) Specimen (Source) Anatomical Collection Method Collection Time Re ceived Time Location / / Volume Laterality 12/18/2019 1:57 PM ASSEMBLER FINAL Narrative [facility] - 12/18/2019 1:57 PM ASSEMBLER FINAL This order has been created and auto-finalized [...]
--- OUTSIDE RECORDS SUMMARY | 2022-07-06 15:39 | XMS_ITS | Encounter Summary ---
:1965 Author Organization [facility] Address [address] [place] [address] Care Team Providers Name Role Phone Unavailable Primary Care Provider Unavailable Encounter Details Date Type Department Care Team Description 01/16/2021 Anticoagulation Visit Department of Elvira Villalta ([facility]) (Primary Dx); [facility]rology in [facility] Anticoagulant Treatment [address] [place] [address] [place], [place] [phone] (Work) [phone] Social History Tobacco Use Types Packs/Day Years [...] you attend restoration or Patient refused 2021 jainism services? Do [...] Target INR 2.0-3.[address] Argenis Diehl ([phone]). The patient was scheduled for an INR recheck on 01/19/21 but we received a message that she had it drawn today, 01/16/21, by [facility] Nurse. I spoke with RADHA Roman [facility] and she relays that the home POC INR today is 3.9. I discussed this with Dr. Argenis Diehl ([phone]) who advises that the patient follow a [...] her primary care provider, Dr. Neri Blackwell, [facility], [place], [place]. I have put in a call for Dr. Blackwell's care team to call us back. Will schedule an INR recheck for 01/20/21. I will fax a standing INR order to RADHA Roman, [facility], phone # [phone], fax #[phone]. She will fax results back to us. [...] OF PHONE CALL. Test results, symptom assessment. RETE INSPECTOR documented in this encounter Plan of Treatment Not on filedocumented as of this encounter Procedures Procedure Name Priority Date/Time Associated Comments Diagnosis PROTHROMBIN TIME Routine 01/16/2021 2:10 PM Resul ts for this (PT), P CONCRETE INSPECTOR procedure are i n the results section. documented in this encounter Results Prothrombin Time (PT) (01/16/2021 2:10 PM CONCRETE INSPECTOR) P athologist Signature EXT INR 3.90 OTHER (SPECIFY IN ELECTRICIAN SHOP) Specimen (Source) Anatomical Collection Method Collection Time Re ceived Time Location / / Volume Laterality Blood (Blood, 01/16/2021 2:10 PM Venous) CONCRETE INSPECTOR Resulting Agency Comment [facility] Historical Provider LAB BLOOD ADD-ON Performing Organization Address City/State/ZIP Code Phon e Number OTHER (SPECIFY IN ELECTRICIAN SHOP) OTHER (SPECIFY IN ELECTRICIAN SHOP) N/A documented in this encounter Visit Diagnoses Diagnosis Stroke (HCC) - Primary Nursing Home (Current) Anticoagulant Treatm ent documented in this encounter Additional Health Concerns Assessment Noted Time PHQ-9 Depression Total Score: 5 04/05/2019 8:00 AM CDT documented as of this encounter
--- OUTSIDE RECORDS SUMMARY | 2022-07-06 15:39 | XMS_ITS | Encounter Summary ---
:1965 Author Organization [facility] Address [address] [place] [address] Care Team Providers Name Role Phone Unavailable Primary Care Provider Unavailable Encounter Details Date Type Department Care Team Description 01/07/2021 Anticoagulation Visit Department of Neurology Zuly Alex in [facility] raúl [place]on [address] [facility] [address] [place] [phone] Social History Tobacco Use Types Packs/Day Years [...] you attend episcopalian or Patient refused 2021 hinduism services? Do [...] is 2.28. Discussed with Dr. Ashley Castrejon ([phone]) who advises that the patient take 5 [...] OF PHONE CALL. Test results, symptom assessment. ICAL PLANT WORKER documented in this encounter Plan of Treatment Not on filedocumented as of this encounter Procedures Procedure Name Priority Date/Time Associated Diagnosis Comme nts PROTHROMBIN TIME (PT), Routine 01/07/2021 Resul ts for this P procedure are i n the results section . documented in this encounter Results Prothrombin Time (PT) (01/07/2021) P athologist Signature EXT INR 2.28 OTHER (SPECIFY IN ROUTER TENDER) Specimen (Source) Anatomical Location Collection Method / Collectio n Time Received Time / Laterality Volume Blood (Blood, 01/07/2021 Venous) Narrative This result has an attachment that is no t available. Historical Provider LAB BLOOD ADD-ON Performing Organization Address City/State/ZIP Code Phon e Number OTHER (SPECIFY IN ROUTER TENDER) OTHER (SPECIFY IN ROUTER TENDER) N/A documented in this encounter Visit Diagnoses Not on filedocumented in this encounter Additional Health Concerns Assessment Noted Time PHQ-9 Depression Total Score: 5 04/05/2019 8:00 AM CDT documented as of this encounter
--- OUTSIDE RECORDS SUMMARY | 2022-07-06 15:39 | XMS_ITS | Encounter Summary ---
:1965 Author Organization [facility] Address [address] [place] [address] Care Team Providers Name Role Phone Unavailable Primary Care Provider Unavailable Encounter Details Date Type Department Care Team Description 09/15/2020 Ancillary Procedure Department of Robert Diehl Aneurysm Radiology jimmy Celaya M.D. Nonruptured (HCC) [place], [place] [address] [facility] [address] [place] [phone] Social History Tobacco Use Types Packs/Day Years [...] you attend amish or Patient refused 2021 pentecostalism services? Do [...] nt right vertebral artery. RADHA, MCA, and oil rag washer are patent. Neck MRA: Conventional three-vessel arch [...] nt right vertebral artery. RADHA, MCA, and oil rag washer are patent. Neck MRA: Conventional three-vessel arch [...]
--- OUTSIDE RECORDS SUMMARY | 2022-07-06 15:39 | XMS_ITS | Encounter Summary ---
:1965 Author Organization [facility] Address [address] [place] [address] Care Team Providers Name Role Phone Unavailable Primary Care Provider Unavailable Encounter Details Date Type Department Care Team Description 12/08/2019 Documentation Department of Darlin Olmedo, Otorhinolaryngology in [place], [place] [address] [place] [address] 200 [place] [address] [phone] Social History Tobacco Use Types Packs/Day Years [...] you attend congregational or Patient refused 2021 confucianism services? 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 Additional doses of oxycodone not sufficient for [...] she is currently having. -Dr. Clemente Medley NET FINISHER documented in this encounter Plan of Treatment Not on filedocumented as of this encounter Visit Diagnoses Not on filedocumented in this encounter Additional Health Concerns Assessment Noted Time PHQ-9 Depression Total Score: 5 04/05/2019 8:00 AM CDT documented as of this encounter
--- OUTSIDE RECORDS SUMMARY | 2022-07-06 15:39 | XMS_ITS | Encounter Summary ---
:1965 Author Organization [facility] Address [address] [place] [address] Care Team Providers Name Role Phone Unavailable Primary Care Provider Unavailable Reason for Visit Reason Comments Michel Encounter Details Date Type Department Care Team Description 09/04/2020 Clinical Communication Department of Robert Diehl W8B/Scharf Neurology in [place], [place] [address] [place] [address] 200 [place] [phone] [phone] Social History Tobacco Use Types Packs/Day Years [...] you attend advent or Patient refused 2021 jew services? Do you belong to any clubs [...]
--- OUTSIDE RECORDS SUMMARY | 2022-07-06 15:39 | XMS_ITS | Encounter Summary ---
:1965 Author Organization [facility] Address [address] [place] [address] Care Team Providers Name Role Phone Unavailable Primary Care Provider Unavailable Reason for Referral Outpatient (Routine) - Closed Specialty Diagnoses / Procedures Referred By Contact Refer red To Contact Otorhinolaryngology Darlin Olmedo M.D . [address] [address] Referral ID Status Reason Start Date Expiration Date Visits Requ ested Visits Authorized [id number] Closed 12/18/2019 12/17/2020 1 1 ECT ARCHITECT Reason for Visit Outpatient (Routine) - Closed Specialty Diagnoses / Procedures Referred By Contact Refer red To Contact Otorhinolaryngology Darlin Olmedo M.D . [address] [address] Referral ID Status Reason Start Date Expiration Date Visits Requ ested Visits Authorized [id number] Closed 11/29/2019 11/28/2020 1 1 Encounter Details Date Type Department Care Team Description 12/18/2019 Office Visit Department of Darlin Olmedo Mucocele Nasa l Sinus Otorhinolaryngology jimmy Brumfield M.D. (Primary Dx) [address] [place] [phone] Social History Tobacco Use Types Packs/Day Years [...] you attend anabaptist or Patient refused 2021 mu-ism services? Do [...] we will refer to neurology headache clinic. ECT ARCHITECT documented in this encounter Plan of Treatment [...]
--- OUTSIDE RECORDS SUMMARY | 2022-07-06 15:39 | XMS_ITS | Encounter Summary ---
:1965 Author Organization [facility] Address [address] [place] [address] Care Team Providers Name Role Phone Unavailable Primary Care Provider Unavailable Reason for Visit Reason Comments shyam Encounter Details Date Type Department Care Team Description 07/29/2020 Clinical Communication Department of Robert Diehl w8b/scharf Neurology in [place], [place] [address] [place] [address] 200 [place] [phone] [phone] Social History Tobacco Use Types Packs/Day Years [...] you attend rastafari or Patient refused 2021 christian services? Do [...] for magnetic resonance angiogram be sent to [place]. José Miguel advise what the exact testing [...]
--- OUTSIDE RECORDS SUMMARY | 2022-07-06 15:40 | XMS_ITS | Encounter Summary ---
:1965 Author Organization [facility] Address [address] [place] [address] Care Team Providers Name Role Phone Unavailable Primary Care Provider Unavailable Encounter Details Date Type Department Care Team Description 10/02/2019 Ancillary Procedure Department of Robert Diehl Arterial Radiology jimmy Celaya M.D. ([facility]) [place], [place] [address] [place] [address] [address] [place] [phone] Social History Tobacco Use Types Packs/Day Years [...] you attend uatsdin or Patient refused 2021 roman catholic services? [...] Robert Diehl M.D. - 10/02/2019 3:20 PM VP DIGITAL MARKETING FORM BUILDING SUPERVISOR: Would you please give the patient a [...] artery finding and the left paraclinoid aneurysm. DIGITAL MARKETING documented in this encounter Plan of Treatment Not on filedocumented as of this encounter Procedures Procedure Name Priority Date/Time Associated Comments Diagnosis INTERPRETATION OF RAD - Routine 10/02/2019 1:01 Thrombosis Result s for OUTSIDE MR NECK (most inpatients PM VP DIGITAL MARKETING Arterial (HCC) this p rocedure and all are in the outpatients) results section. documented in this encounter Results Interpretation of Outside MR Neck (10/02/2019 1:01 PM VP DIGITAL MARKETING) Anatomical Region Laterality Modality Neuroradiology RST LOS, Neuroradiology ARZ LOS, N/A Magnetic Resonance Neuroradiology FLA LOS, Neck Specimen (Source) Anatomical Collection Method Collection Time Re ceived Time Location / / Volume Laterality 10/02/2019 1:03 PM VP DIGITAL MARKETING Impressions 10/02/2019 1:18 PM VP DIGITAL MARKETING Similar appearance of the distal right vertebral artery irregularity and mild narrowing at C1, r elated to the nonocclusive luminal thrombus, as seen on the prior CTA exams . MRA neck otherwise negative and unchanged. Narrative 10/02/2019 1:18 PM VP DIGITAL MARKETING EXAM: ??INTERPRETATION OF OUTSIDE MR NECK COMPARISON: [...]
--- OUTSIDE RECORDS SUMMARY | 2022-07-06 15:40 | XMS_ITS | Encounter Summary ---
:1965 Author Organization [facility] Address [address] [place] [address] Care Team Providers Name Role Phone Unavailable Primary Care Provider Unavailable Reason for Visit Reason Onset Date Comments Patient wants letter and notes sent to physician in 10/03/[address] Robert Diehl [facility] Encounter Details Date Type Department Care Team Description 10/03/2019 Clinical Communication Department of Robert Diehl Neurology in L, M.DBritton letter and notes [address] sent to physician [place], [place] in [facility] ( [address] [place] [phone] Robert Diehl) [place], [place] [phone] (Work) [phone] Social History Tobacco Use Types Packs/Day Years [...] you attend restorationist or Patient refused 2021 yazdanism services? Do [...] 3:55 PM CST As per documentation in [facility] on 09/04, a letter has been sent to Dr. Blackwell with the patient's notes from her most recent visit. MANAGER documented in this encounter Plan of Treatment Not on filedocumented as of this encounter Visit Diagnoses Not on filedocumented in this encounter Additional Health Concerns Assessment Noted Time PHQ-9 Depression Total Score: 5 04/05/2019 8:00 AM CDT documented as of this encounter
--- OUTSIDE RECORDS SUMMARY | 2022-07-06 15:40 | XMS_ITS | Encounter Summary ---
:1965 Author Organization [facility] Address [address] [place] [address] Care Team Providers Name Role Phone Unavailable Primary Care Provider Unavailable Reason for Visit Outpatient (Routine) - Closed Specialty Diagnoses / Procedures Referred By Contact Refer red To Contact General Surgery Diagnoses Rhinosinusitis Chronic Jey Santana M.D. [facility] [address] [place] [address] Referral ID Status Reason Start Date Expiration Date Visits Requ ested Visits Authorized [id number] Closed 11/08/2019 11/07/2020 1 1 Encounter Details Date Type Department Care Team Description 11/29/2019 Comprehensive Visit Preoperative Jey Santana M.D. [address] [place] [address] Preanesthetic Medical Exam (Primary Dx); Evaluation Center in Lanre Carvajal M.D. [address] [place] [phone] Rhinosinusitis Chronic [place], [place] [address] [place] [phone] Social History Tobacco Use Types Packs/Day Years [...] you attend methodist or Patient refused 2021 sabianist services? Do [...] Comments Blood Pressure 108/74 11/29/2019 12:45 PM FITNESS CENTER ATTENDANT Pulse 104 11/29/2019 12:45 PM FITNESS CENTER ATTENDANT Temperature 36.5 ??C (97.7 ??F) 11/29/2019 12:45 PM FITNESS CENTER ATTENDANT Respiratory Rate - - Oxygen Saturation 96% 11/29/2019 12:45 PM FITNESS CENTER ATTENDANT Inhaled Oxygen Concentration - - Weight 76.4 kg (168 lb 6.9 oz) 11/29/2019 12:45 PM FITNESS CENTER ATTENDANT Height 151.7 cm (4' 11.72) 11/29/2019 12:45 PM FITNESS CENTER ATTENDANT Body Mass Index 33.2 11/29/2019 12:45 PM FITNESS CENTER ATTENDANT documented in this encounter H&P Notes Lanre Carvajal M.D. - 11/29/2019 12:45 PM CST Preoperative Medical Evaluation Patient Name: Angie Mosquera Age: 54 y.o. Date of : 1965 Patient [address]: [address] [place] [phone] Primary Care Provider: No primary care provider [...] #11 Patent Foramen [place] (HCC) Noted on [id number]/ ECHO otherwise normal. I will not pursue anything further ESS CENTER ATTENDANT documented in this encounter Plan of Treatment Not on filedocumented as of this encounter Results Creatinine with Estimated GFR - for Lab Draw (11/29/2019 11:30 AM FITNESS CENTER ATTENDANT) P athologist Signature Creatinine, S 0.98 0.59 - 1.04 11/29/2019 DTL mg/dL 1:05 PM FITNESS CENTER ATTENDANT eGFR-Non 65 >=60 11/29/2019 DTL Black/ mL/min/BSA 1:05 PM FITNESS CENTER ATTENDANT Mexican Comment: ----ADDITIONAL INFORMATION---- Estimated GFR calculated using the 2009 CKD_EPI creatinine equation. eGFR-Black/ 75 >=60 mL/min/BSA 2019 1:05 PM FITNESS CENTER ATTENDANT DTL Comment: ----ADDITIONAL INFORMATION---- Estimated GFR calculated using the 2009 CKD_EPI creatinine equation. Specimen Anatomical Collection Method Collection Time Receive d Time (Source) Location / / Volume Laterality Blood (Blood, 11/29/2019 11:30 11/29/2019 Venous) AM FITNESS CENTER ATTENDANT 11:50 AM FITNESS CENTER ATTENDANT Miranda Collado APRN, C.N.P., M.S.N. LAB BLOOD ADD-ON Performing Organization Address City/State/ZIP Code Phon e Number [facility] - [address] [place], [place] [address] [place] [address] [facility] [address] documented in this encounter Visit Diagnoses Diagnosis Preanesthetic Medical Exam - Primary Rhinosinusitis Chronic documented in this encounter Additional Health Concerns Assessment Noted Time PHQ-9 Depression Total Score: 5 04/05/2019 8:00 AM CDT documented as of this encounter
--- OUTSIDE RECORDS SUMMARY | 2022-07-06 15:40 | XMS_ITS | Encounter Summary ---
:1965 Author Organization [facility] Address [address] [place] [address] Care Team Providers Name Role Phone Unavailable Primary Care Provider Unavailable Reason for Visit Reason Onset Date Comments Nicotine Dependence 08/30/2019 Encounter Details Date Type Department Care Team Description 08/30/2019 Clinical Department of Tesfaye Ortega, Nicotine Janet grady Communication Nicotine Kenna D, Dependence, Jordy Alex, C.T.T.[facility]The [facility], in [place], [place] [address] [place] [address] Social History Tobacco Use Types Packs/Day Years [...] you attend anabaptist or Patient refused 2021 anabaptism services? Do [...]
--- OUTSIDE RECORDS SUMMARY | 2022-07-06 15:40 | XMS_ITS | Encounter Summary ---
:1965 Author Organization [facility] Address [address] [place] [address] Care Team Providers Name Role Phone Unavailable Primary Care Provider Unavailable Encounter Details Date Type Department Care Team Description 12/07/2019 Surgery RST ROMB LUISA OR Darlin Olmedo, SINUSOTOMY ENDOSCOPY [address] [facility] [phone] [place] [address] [place] [phone] Social History Tobacco Use Types Packs/Day Years [...] you attend scientologist or Patient refused 2021 mandaeism services? Do you belong to any clubs [...] sinus rinse kit (jose ramon Dalal or [place]). - Follow the directions on the bottle [...] our clinic or with another department at [facility], an appointment willbe made for you. If you have not received specific details (date, time, location) within 2 weeks of discharge, please contact our office at [phone] to inquire. If you are to follow up somewhere other than [facility], please schedule this appointment (in the timeframe recommended by your surgeon)at your earliest convenience. CONTACT INFORMATION: If you need to reach the Department of ENT at the [facility] regarding any questions during normal business hours, please call . If you are calling after normal business hours and have a concern that needs to be addressed urgently, please call the [facility] Field Case Manager at and ask to speak to the ENT resident salesperson pianos and organs. ANCE ARTIFICER AttachmentsThe following attachments cannot be sent through Care Everywhere.Your Scopolamine Patch ([place])documented in this encounter Medications at Time of [...] EXTRADURAL COMPUTER NAVIGATION. Surgeon(s) and Role: * [place], Darlin K, M.D. - Primary Anesthesia Type [...] Extradural computer navigation was registered according to cardiovascular sonographer's guidelines and confirmed to be accurate within [...] 5 mL Implants None Darlin Olmedo M.D. ANCE ARTIFICER Brief Op Note - Jey Santana M.D. [...] Loss None Implants None Jey Santana M.D. ANCE ARTIFICER documented in this encounter Plan of Treatment Not on filedocumented as of this encounter Procedures Procedure Name Priority Date/Time Associated Diagnosis Comme nts ADULT OXYGEN THERAPY Routine 12/07/2019 2:30 PM ORDNANCE ARTIFICER EXTRADURAL COMPUTER 12/07/2019 12:13 PM Rhinosin usitis Chronic NAVIGATION ORDNANCE ARTIFICER Mucocele Nasal Sinus Case Notes BILINGUAL SCHOOL PSYCHOLOGIST 10:37 SINUSOTOMY ENDOSCOPY 12/07/2019 12:13 PM ORDNANCE ARTIFICER Rhi nosinusitis Chronic FRONTAL Mucocele Nasal Sinus Case Notes BILINGUAL SCHOOL PSYCHOLOGIST 10:37 documented in this encounter Visit Diagnoses Diagnosis Rhinosinusitis Chronic Mucocele Nasal Sinus documented in this encounter Administered Medications Inactive Administered Medications - up to 3 most recent administrations Medication Order MAR Action Action Date Dose Rate Site acetaminophen injection 1,000 New Bag 12/07/2019 2:38 PM 1,000 mg 400 mL/hr mg (OFIRMEV) ORDNANCE ARTIFICER 1,000 mg, intravenous, at 400 mL/hr, Administer [...] 1,000 mg (TYLENOL) Given 12/07/2019 12:06 PM ORDNANCE ARTIFICER 1,000 mg 1,000 mg, oral, Once, On Tue12/07/19 at 1200, For 1 dose, Pre-Op aprepitant capsule 40 mg (EMEND) Given 12/07/2019 12:06 PM ORDNANCE ARTIFICER 40 mg 40 mg, oral, Once as needed, prevent ponv, Starting on Tue12/07/19 at 1145, For 1 dose, Pre-Op caffeine tablet 200 mg Given 12/07/2019 12:06 PM ORDNANCE ARTIFICER 200 mg 200 mg, oral, Once as needed, pre-op to prevent caffeine withdrawal headache or to enhance emergence from anesthesia/sedation, Starting on Tue12/07/19 at 1145, For 1 dose, Pre-Op, With sips cocaine 4 % external solution Given 12/07/2019 1:10 PM ORDNANCE ARTIFICER 4 mL Other As needed, Starting on Tue12/07/19 at 1310, Intra-Op droperidol injection 0.625 mg (INAPSINE) Given 12/07/2019 2:37 PM ORDNANCE ARTIFICER 0.625 mg 0.625 mg, intravenous, Every 6 [...] 25 mcg (SUBLIMAZE) Given 12/07/2019 2:32 PM ORDNANCE ARTIFICER 25 mcg 25 mcg, intravenous, Every 2 min PRN, For pain 4 or greater (maximum 100 mcg). If max dose of Fentanyl is reached and if pain is greater than 4, discontinue Fentanyl: give Hydromorphone, Starting on Tue12/07/19 at 1145, Pre-Op ketamine injection 10 mg (KETALAR) Given 12/07/2019 2:37 PM ORDNANCE ARTIFICER 10 mg 10 mg, intravenous, Once as needed, Pain sedation mismatch AND RASS score less than -1, Starting on Tue12/07/19 at 1430, For 1 dose, PACU (only) lactated ringers New Bag 12/07/2019 3:48 PM ORDNANCE ARTIFICER 20 mL/hr 20 mL/hr 20 mL/hr, intravenous, Continuous, Starting on Tue12/07/19 at 1400, PACU & Post-Op Continued from OR 12/07/2019 2:25 PM ORDNANCE ARTIFICER 20 mL/hr 20 mL/hr lidocaine-EPINEPHrine 1 %-1:100,000 Given 12/07/2019 1:45 PM ORDNANCE ARTIFICER 2 mL Other injection (XYLOCAINE W/EPI) As needed, Starting on Tue12/07/19 at 1320, Intra-Op Given 12/07/2019 1:20 PM ORDNANCE ARTIFICER 1.5 mL Other metoprolol tablet 12.5 mg [...] 2 mg (VERSED) Given 12/07/2019 12:28 PM ORDNANCE ARTIFICER 2 mg 2 mg, intravenous, Once as needed, anxiety, sedation, Starting on Tue12/07/19 at 1145, For 1 dose, Pre-Op ondansetron ODT disintegrating tablet 4 mg Given 12/07/2019 12:0 7 PM ORDNANCE ARTIFICER 4 mg (ZOFRAN-ODT) 4 mg, sublingual, Once, On Tue12/07/19 at 1200, For 1 dose, Pre-Op, When splitting ODT at bedside, handle with gloves and a pill splitter to prevent moisture contact. oxymetazoline 0.05 % nasal spray Given 12/07/2019 1:42 PM ORDNANCE ARTIFICER 1 application (AFRIN) As needed, Starting on Tue12/07/19 at 1342, Intra-Op scopolamine base 1 mg Medication Applied 12/07/2019 12:11 PM 1 patch Behind Right over 3 days 1 patch ORDNANCE ARTIFICER Ear (TRANSDERM SCOP) 1 patch, transdermal, Administer [...] Recently Administered Medications Times are shown in ORDNANCE ARTIFICER. Scheduled Medication Order 12/05/2019 12/06/2019 12/07/2019 acetaminophen [...] (COMPLETED) 1251 (Given - Provider: Gini Garcia, RECRUITING OPERATIONS CONSULTANT, FIRMWARE ARCHITECT) 1,250 mg (rounded from 1,146 mg = [...] 1211 (Medication Applied - Provider: Steph Gallo R.N.)4580 (Due: Medication Removed - Provider: Discharge Provider, [...]
--- OUTSIDE RECORDS SUMMARY | 2022-07-06 15:40 | XMS_ITS | Encounter Summary ---
:1965 Author Organization [facility] Address [address] [place] [address] Care Team Providers Name Role Phone Unavailable Primary Care Provider Unavailable Encounter Details Date Type Department Care Team Description 12/06/2019 Clinical Communication Department of Robert Diehl, Neurology in .. [place], [place] 200 [facility] 200 [place] [phone] Social History Tobacco Use Types Packs/Day Years [...] you attend evangelical or Patient refused 2021 orthodoxy services? Do [...] during her next visit. Janis Preston R.N. UAGE TRANSLATOR Telephone Encounter - Janis Preston R.N. - 12/06/2019 1:35 PM CST ----- Message from Robert Diehl M.D. sent at 12/03/2019 10:17 AM LANGUAGE TRANSLATOR ----- Regarding: FW: Overnight oximetry Good morning Would you be able to reach out and let this patient know the oximetry was unsuccessful and would need to be repeated and ask if they would like to do this? Thank you! Electronically signed by: Robert Diehl M.D. 12/03/19 10:18 AM LANGUAGE TRANSLATOR ----- Message ----- From: Carolynn Stokes Sent: 11/29/2019 2:39 PM LANGUAGE TRANSLATOR To: Robert Diehl M.D. Subject: Overnight oximetry Your patients overnight oximetry test did not have recorded data of sufficient duration for an interpretation to be completed and was returned four months after appointment. Therefore an overnight oximetry report will not be generated to [facility]. Please contact your clinical social service assistant to reschedule an overnight oximetry test if you wish the patient to repeat an overnight oximetry test. UAGE TRANSLATOR documented in this encounter Plan of Treatment [...] Organization Address City/State/ZIP Code Phon e Number [facility] documented in this encounter Visit Diagnoses Diagnosis Fatigue - Primary Fatigue documented in this encounter Additional Health Concerns Assessment Noted Time PHQ-9 Depression Total Score: 5 04/05/2019 8:00 AM CDT documented as of this encounter
--- OUTSIDE RECORDS SUMMARY | 2022-07-06 15:40 | XMS_ITS | Encounter Summary ---
:1965 Author Organization [facility] Address [address] [place] [address] Care Team Providers Name Role Phone Unavailable Primary Care Provider Unavailable Encounter Details Date Type Department Care Team Description 10/09/2019 Orders Only Department of Otorhinolaryngology Alana Engel, in [facility] [address] [place] [address] 200 [place] [phone] [place], [place] [phone] Social History Tobacco Use Types Packs/Day Years [...] you attend scientology or Patient refused 2021 taoism services? Do [...]
--- OUTSIDE RECORDS SUMMARY | 2022-07-06 15:40 | XMS_ITS | Encounter Summary ---
:1965 Author Organization [facility] Address [address] [place] [address] Care Team Providers Name Role Phone Unavailable Primary Care Provider Unavailable Reason for Visit Outpatient (Routine) - Closed Specialty Diagnoses / Procedures Referred By Contact Refer red To Contact Neurology Robert Diehl M. D. [facility] [address] [place] [phone] Referral ID Status Reason Start Date Expiration Date Visits Requ ested Visits Authorized [id number] Closed 06/28/2019 06/27/2020 1 1 Encounter Details Date Type Department Care Team Description 10/02/2019 Office Visit Department of Robert Diehl, Stroke (H CC) (Primary Dx); Neurology in M.D. Thrombosis Arterial (HCC) [place], [place] [address] [address] [place] [phone] Social History Tobacco Use Types Packs/Day Years [...] you attend voodoo or Patient refused 2021 anabaptism services? Do you belong to any clubs or No 05/17/2022 organizations such as voodoo groups, unions, fraMotley [employer]s and Logistics or athletic groups, or school groups? How [...] of a magnetic resonance angiogram completed at [facility]. Unfortunately we do not have the [...] 1. Stroke (HCC) 2. Thrombosis Arterial (HCC) MIC PROSPECTING OBSERVER HELPER documented in this encounter Plan of Treatment Not on filedocumented as of this encounter Visit Diagnoses Diagnosis Stroke (HCC) - Primary Thrombosis Arterial (HCC) documented in this encounter Additional Health Concerns Assessment Noted Time PHQ-9 Depression Total Score: 5 04/05/2019 8:00 AM CDT documented as of this encounter
--- OUTSIDE RECORDS SUMMARY | 2022-07-06 15:40 | XMS_ITS | Encounter Summary ---
:1965 Author Organization [facility] Address [address] [place] [address] Care Team Providers Name Role Phone Unavailable Primary Care Provider Unavailable Reason for Visit Reason Onset Date Comments Schedule Surgery 10/05/2019 Encounter Details Date Type Department Care Team Description 10/05/2019 Clinical Department of Remus, Schedule Surge ry Communication Otorhinolaryngology in [place], [place] 200 [facility] [address] [place] [phone] [place] [phone] Social History Tobacco Use Types Packs/Day Years [...] you attend yazdanism or Patient refused 2021 sikhism services? Do [...] Kaykay Murphy R.N. - 10/17/2019 8:10 AM SOFTWARE SUPPORT TECHNICIAN Pt has return appt with EKO on 10/23 WARE SUPPORT TECHNICIAN Telephone Encounter - Alana Engel L.P.NBritton - 10/09/2019 2:49 PM CST Note sent to DR. Olmedo and patient's Neurology team to discuss clearance for surgery. Desk is scheduling a return for the patient ot discuss surgery. WARE SUPPORT TECHNICIAN Telephone Encounter - Alana Engel L.P.N. - [...] following references were used: provider Dr. Olmedo WARE SUPPORT TECHNICIAN Telephone Encounter - Zoey Lipscomb - 10/05/2019 [...] surgical date. She can be reached at [phone]. WARE SUPPORT TECHNICIAN documented in this encounter Plan of Treatment Not on filedocumented as of this encounter Visit Diagnoses Not on filedocumented in this encounter Additional Health Concerns Assessment Noted Time PHQ-9 Depression Total Score: 5 04/05/2019 8:00 AM CDT documented as of this encounter
--- OUTSIDE RECORDS SUMMARY | 2022-07-06 15:40 | XMS_ITS | Encounter Summary ---
:1965 Author Organization [facility] Address [address] [place] [address] Care Team Providers Name Role Phone Unavailable Primary Care Provider Unavailable Encounter Details Date Type Department Care Team Description 10/03/2019 Clinical Communication Department of Robert Diehl, Neurology in .. [place], [place] 200 [facility] 200 [place] [phone] Social History Tobacco Use Types Packs/Day Years [...] you attend muslim or Patient refused 2021 christian services? Do [...] this is for you, records request ER ROLLER GRINDER OPERATOR Telephone Encounter - Janis Preston R.N. - 10/03/2019 3:11 PM CST Called patient back with update about aspirin per Dr. Diehl. Patient voiced understanding that she will stop the warfarin and continue baby aspirin. She wants notes about her visit sent to her DrBrittonin [place]. Janis Prestno R.N. ER ROLLER GRINDER OPERATOR Telephone Encounter - Janis Preston R.N. - [...] and warfarin discontinuation. Janis Preston R.N. ER ROLLER GRINDER OPERATOR documented in this encounter Plan of Treatment Not on filedocumented as of this encounter Visit Diagnoses Not on filedocumented in this encounter Additional Health Concerns Assessment Noted Time PHQ-9 Depression Total Score: 5 04/05/2019 8:00 AM CDT documented as of this encounter
--- OUTSIDE RECORDS SUMMARY | 2022-07-06 15:40 | XMS_ITS | Encounter Summary ---
:1965 Author Organization [facility] Address [address] [place] [address] Care Team Providers Name Role Phone Unavailable Primary Care Provider Unavailable Encounter Details Date Type Department Care Team Description 09/03/2019 Documentation Department of Neurology in Robert Fontanez M.D. [place], [place] 200 [facility] 200 [place] [phone] (Wo rk) Social History Tobacco Use Types [...] you attend hoahaoism or Patient refused 2021 yazidism services? Do [...]
--- OUTSIDE RECORDS SUMMARY | 2022-07-06 15:40 | XMS_ITS | Encounter Summary ---
:1965 Author Organization [facility] Address [address] [place], [place] [address] Care Team Providers Name Role Phone Unavailable Primary Care Provider Unavailable Encounter Details Date Type Department Care Team Description 11/29/2019 Hospital Encounter Department of Jey Santana, Rhinosi nusitis Chronic; Laboratory Medicine M.D. Preanesthetic Medical Exam and Pathology, [address] [place] [address] [phone] [place] [address] (Work) [place], [place] [phone] (Fax) [phone] Social History Tobacco Use Types Packs/Day Years [...] R esults for this DIFFERENTIAL, B AM BACK HOE MACHINE OPERATOR procedure ar e in the results section. CREATININE WITH Routine 11/29/2019 11:30 Preanesthetic Medical Results for this EGFR, S/P AM BACK HOE MACHINE OPERATOR Exam procedure are i n the results section. documented in this encounter Results Creatinine with Estimated GFR - for Lab Draw (11/29/2019 11:30 AM BACK HOE MACHINE OPERATOR) P athologist Signature Creatinine, S 0.98 0.59 - 1.04 11/29/2019 DTL mg/dL 1:05 PM BACK HOE MACHINE OPERATOR eGFR-Non 65 >=60 11/29/2019 DTL Black/ mL/min/BSA 1:05 PM BACK HOE MACHINE OPERATOR [place] Comment: ----ADDITIONAL INFORMATION---- Estimated GFR calculated using the 2009 CKD_EPI creatinine equation. eGFR-Black/ 75 >=60 mL/min/BSA 2019 1:05 PM BACK HOE MACHINE OPERATOR DTL Comment: ----ADDITIONAL INFORMATION---- Estimated GFR calculated using the 2009 CKD_EPI creatinine equation. Specimen Anatomical Collection Method Collection Time Receive d Time (Source) Location / / Volume Laterality Blood (Blood, 11/29/2019 11:30 11/29/2019 Venous) AM BACK HOE MACHINE OPERATOR 11:50 AM BACK HOE MACHINE OPERATOR Miranda Collado APRN C.N.P., M.S.N. LAB BLOOD ADD-ON Performing Organization Address City/State/ZIP Code Phon e Number [facility] - 200 [place], [place] [address] [facility] [place] [address] [facility] [address] (ABNORMAL) CBC without Differential (11/29/2019 11:30 AM BACK HOE MACHINE OPERATOR) Patholo gist Method Time Signature Hemoglobin 13.3 11.6 - 11/29/2019 DTL 15.0 g/dL 12:09 PM BACK HOE MACHINE OPERATOR Hematocrit 40.6 35.5 - 11/29/2019 DTL 44.9 % 12:09 PM BACK HOE MACHINE OPERATOR Erythrocytes 4.08 3.92 - 11/29/2019 DTL 5.13 12:09 PM BACK HOE MACHINE OPERATOR x10(12)/L MCV 99.5 (H) 78.2 - 11/29/2019 DTL 97.9 fL 12:09 PM BACK HOE MACHINE OPERATOR RBC Distrib Width 13.3 12.2 - 11/29/2019 DTL 16.1 % 12:09 PM BACK HOE MACHINE OPERATOR Platelet Count 234 157 - 371 11/29/2019 DTL x10(9)/L 12:09 PM BACK HOE MACHINE OPERATOR Leukocytes 5.8 3.4 - 9.6 11/29/2019 DTL x10(9)/L 12:09 PM BACK HOE MACHINE OPERATOR Specimen Anatomical Collection Method Collection Time Receive d Time (Source) Location / / Volume Laterality Blood (Blood, 11/29/2019 11:30 11/29/2019 Venous) AM BACK HOE MACHINE OPERATOR 11:50 AM BACK HOE MACHINE OPERATOR Jey Santana M.D. LAB BLOOD ADD-ON Performing Organization Address City/State/ZIP Code Phon e Number [facility] - [address] [place], [place] [address] [facility] [place] [address] [facility] [address] documented in this encounter Visit Diagnoses Diagnosis Rhinosinusitis Chronic Preanesthetic Medical Exam documented in this encounter Additional Health Concerns Assessment Noted Time PHQ-9 Depression Total Score: 5 04/05/2019 8:00 AM CDT documented as of this encounter
--- OUTSIDE RECORDS SUMMARY | 2022-07-06 15:40 | XMS_ITS | Encounter Summary ---
:1965 Author Organization [facility] Address [address] [place] [address] Care Team Providers Name Role Phone Unavailable Primary Care Provider Unavailable Reason for Visit Reason Onset Date Comments MRI from [facility] 10/02/2019 Dr. Deihl Encounter Details Date Type Department Care Team Description 10/02/2019 Clinical Communication Department of Robert Diehl MR I from [place] [facility] Bullock, 200 [facility] Fazal) [place], [place] [address] [place] [id number] [place], [place] [phone] (Work) [phone] Social History Tobacco Use Types Packs/Day Years [...] you attend buddhism or Patient refused 2021 samaritan services? Do [...] with the radiology film room (Marlen) at [facility]. They have pushed the MRI and it should be here soon. ER SURVEYOR documented in this encounter Plan of Treatment Not on filedocumented as of this encounter Visit Diagnoses Not on filedocumented in this encounter Additional Health Concerns Assessment Noted Time PHQ-9 Depression Total Score: 5 04/05/2019 8:00 AM CDT documented as of this encounter
--- OUTSIDE RECORDS SUMMARY | 2022-07-06 15:40 | XMS_ITS | Encounter Summary ---
:1965 Author Organization [facility] Address [address] [place] [address] Care Team Providers Name Role Phone Unavailable Primary Care Provider Unavailable Reason for Visit Reason Onset Date Comments Nicotine Dependence 09/04/2019 Encounter Details Date Type Department Care Team Description 09/04/2019 Clinical Department of Tesfaye Ortega, Nicotine Janet grady Communication Nicotine Kenna D, Dependence, Jordy Alex, [facility] in [place], [place] [address] [place] [address] Social History Tobacco Use Types Packs/Day Years [...] you attend congregation or Patient refused 2021 evangelical services? Do [...]
--- OUTSIDE RECORDS SUMMARY | 2022-07-06 15:40 | XMS_ITS | Encounter Summary ---
:1965 Author Organization [facility] Address [address] [place] [address] Care Team Providers Name Role Phone Unavailable Primary Care Provider Unavailable Reason for Referral Outpatient (Routine) - Closed Specialty Diagnoses / Procedures Referred By Contact Refer herson To Contact General Surgery Diagnoses Rhinosinusitis Chronic John Gomez M.D. [facility] [address] [place] [address] Referral ID Status Reason Start Date Expiration Date Visits Requ ested Visits Authorized [id number] Closed 11/08/2019 11/07/2020 1 1 utpatient (Routine) - Closed Specialty Diagnoses / Procedures Referred By Contact Clyde bains To Contact Otorhinolaryngology John Gomez M.D. [address] [address] Referral ID Status Reason Start Date Expiration Date Visits Requ ested Visits Authorized [id number] Closed 11/08/2019 11/07/2020 1 1 Scheduling Instructions EKO listing visit and NESHA 11/29/2019 LE SCHOOL READING TEACHER Reason for Visit Reason Onset Date Comments reschedule surgery 11/07/2019 Patient was a no sydni w for surgery with Dr. Olmedo on 11/05/19. Encounter Details Date Type Department Care Team Description 11/07/2019 Clinical Department of shawna Olmedo Communication Otorhinolaryngology in Darlin K, surg silva (Patient [place], [place] M.D. was a no show for [address] [place]. G[place], [place] [id number] SHAHANA [place] on [phone] [place], 11/05/19.) [place] [address] Social History Tobacco Use Types Packs/Day Years [...] you attend worship or Patient refused 2021 hoahaoism services? Do [...] Tanvi White R.N. - 11/09/2019 10:02 AM MIDDLE SCHOOL READING TEACHER Patient called to let her know of the preoperative appointments and listing appointment with Dr. Darlin Olmedo. She was also informed that she does not have to stop the aspirin 81 mg for surgery. She verbalized understanding regarding the use of aspirin and was appreciative of the call. LE SCHOOL READING TEACHER Telephone Encounter - John Gomez M.D. - 11/08/2019 5:00 PM CST Kosta Wu, I placed the NESHA, listing visit, and created the listing. She can stay on her 81 ASA. Thank you. LE SCHOOL READING TEACHER Addendum Note - John Gomez M.D. - 11/08/2019 4:59 PM MIDDLE SCHOOL READING TEACHER Addended by: JOHN GOMEZ on: 11/08/2019 04:59 PM Modules accepted: Orders LE SCHOOL READING TEACHER Telephone Encounter - Tanvi White R.N. - 11/08/2019 10:59 AM MIDDLE SCHOOL READING TEACHER SUBJECTIVE CHIEF COMPLAINT / REASON FOR CALL [...] the surgical date. She will require a bulk tank driver and that plan will work better for her. Disposition/Recommendation: Patient is aware that she will need to call in the night before surgeryfor a report time to [facility]. Information/Education: patient/caller able to teach back Caller agreeable to plan of care: yes The following references were used: nursing clinical judgement LE SCHOOL READING TEACHER Telephone Encounter - Darlin Olmedo M.D. - 11/08/2019 10:16 AM CST Any of those days are fine. I should see her for a listing visit and NESHA. thanks LE SCHOOL READING TEACHER Telephone Encounter - Tanvi White R.N. - 11/07/2019 1:34 PM MIDDLE SCHOOL READING TEACHER SUBJECTIVE CHIEF COMPLAINT / REASON FOR CALL [...] following references were used: nursing clinical judgement LE SCHOOL READING TEACHER documented in this encounter Plan of Treatment Scheduled Referrals Name Type Priority Associated Diagnoses Order S chedule Otorhinolaryngology office Outpatient Routine E xpected: visit (clinic) Referral 11/29/2019, Expires: 11/08/2022 Preoperative Evaluation Outpatient Routine Rhinosinusitis Ex pected: NESHA consult (clinic) Referral Chronic 020 (Approximate), Expires: 11/08/2022 documented as of this encounter Results (ABNORMAL) CBC without Differential (11/29/2019 11:30 AM MIDDLE SCHOOL READING TEACHER) [facility] gist Method Time Signature Hemoglobin 13.3 11.6 - 11/29/2019 DTL 15.0 g/dL 12:09 PM MIDDLE SCHOOL READING TEACHER Hematocrit 40.6 35.5 - 11/29/2019 DTL 44.9 % 12:09 PM MIDDLE SCHOOL READING TEACHER Erythrocytes 4.08 3.92 - 11/29/2019 DTL 5.13 12:09 PM MIDDLE SCHOOL READING TEACHER x10(12)/L MCV 99.5 (H) 78.2 - 11/29/2019 DTL 97.9 fL 12:09 PM MIDDLE SCHOOL READING TEACHER RBC Distrib Width 13.3 12.2 - 11/29/2019 DTL 16.1 % 12:09 PM MIDDLE SCHOOL READING TEACHER Platelet Count 234 157 - 371 11/29/2019 DTL x10(9)/L 12:09 PM MIDDLE SCHOOL READING TEACHER Leukocytes 5.8 3.4 - 9.6 11/29/2019 DTL x10(9)/L 12:09 PM MIDDLE SCHOOL READING TEACHER Specimen Anatomical Collection Method Collection Time Receive d Time (Source) Location / / Volume Laterality Blood (Blood, 11/29/2019 11:30 11/29/2019 Venous) AM MIDDLE SCHOOL READING TEACHER 11:50 AM MIDDLE SCHOOL READING TEACHER John Gomez M.D. LAB BLOOD ADD-ON Performing Organization Address City/State/ZIP Code Phon e Number [facility] - [address] [place], [place] [address] [facility] [place] [address] [facility] [address] documented in this encounter Visit Diagnoses Diagnosis Rhinosinusitis Chronic - Primary documented in this encounter Additional Health Concerns Assessment Noted Time PHQ-9 Depression Total Score: 5 04/05/2019 8:00 AM CDT documented as of this encounter
--- OUTSIDE RECORDS SUMMARY | 2022-07-06 15:40 | XMS_ITS | Encounter Summary ---
:1965 Author Organization [facility] Address [address] [place] [address] Care Team Providers Name Role Phone Unavailable Primary Care Provider Unavailable Encounter Details Date Type Department Care Team Description 06/28/2019 Hospital Encounter Department of Fernie Soriano Stroke ([facility]); Radiology in R, M.D. Thrombosis Arterial ([facility]); [place], [place] [address] [facility] Aneurysm Cerebral Unruptured ([facility]) 200 [place] [address] [phone] Social History Tobacco Use Types Packs/Day Years [...] you attend yazidi or Patient refused 2021 confucianist services? Do [...] slept in a senior care (including now)? Sex Assigned at Date Recorded [...] the ventral aspect (series 6 image s [id number]). The lumen remains significantly irregular and there [...] well seen. The RADHA, MCA, a nd PAPER MAKER branches are unremarkable in appearance. Stable postoperative [...] the ventral aspect (series 6 image s [id number]). The lumen remains significantly irregular and there [...] well seen. The RADHA, MCA, a nd PAPER MAKER branches are unremarkable in appearance. Stable postoperative [...]
--- OUTSIDE RECORDS SUMMARY | 2022-07-06 15:40 | XMS_ITS | Encounter Summary ---
:1965 Author Organization [facility] Address [address] [place] [address] Care Team Providers Name Role Phone Unavailable Primary Care Provider Unavailable Encounter Details Date Type Department Care Team Description 12/07/2019 Hospital Encounter RST ROMB MAIN OR Darlin Olmedo, [address] [facility] [place] [address] [address] [place] [address] [place] [address] Social History Tobacco Use Types [...] you attend moravian or Patient refused 2021 gnosticism services? Do [...] Comments Blood Pressure 114/72 12/07/2019 3:30 PM MUSIC ARTIST Pulse 75 12/07/2019 4:25 PM MUSIC ARTIST Temperature 36.5 ??C (97.7 ??F) 12/07/2019 2:32 PM MUSIC ARTIST Respiratory Rate 15 12/07/2019 4:25 PM MUSIC ARTIST Oxygen Saturation 94% 12/07/2019 4:25 PM MUSIC ARTIST Inhaled Oxygen Concentration - - Weight - [...] saline sinus rinse kit (suchas NeIron or [place]). - Follow the directions on the bottle [...] our clinic or with another department at [facility], an appointment willbe made for you. If you have not received specific details (date, time, location) within 2 weeks of discharge, please contact our office at [phone] to inquire. If you are to follow up somewhere other than [facility], please schedule this appointment (in the timeframe recommended by your surgeon)at your earliest convenience. CONTACT INFORMATION: If you need to reach the Department of ENT at the [facility] regarding any questions during normal business hours, please call . If you are calling after normal business hours and have a concern that needs to be addressed urgently, please call the [facility] Privacy Analyst at and ask to speak to the ENT resident auto transmission specialist. C ARTIST AttachmentsThe following attachments cannot be sent through Care Everywhere.Your Scopolamine Patch (Bruneian)documented in this encounter Medications at Time of [...] Extradural computer navigation was registered according to insurance agency owner's guidelines and confirmed to be accurate within [...] 5 mL Implants None Darlin Olmedo M.D. C ARTIST Brief Op Note - Jey Santana M.D. [...] Loss None Implants None Jey Santana M.D. 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 Case Notes JUKEBOX CHECKER 10:37 SINUSOTOMY ENDOSCOPY 12/07/2019 12:13 PM MUSIC ARTIST Rhi nosinusitis Chronic FRONTAL Mucocele Nasal Sinus Case Notes JUKEBOX CHECKER 10:37 documented in this encounter Visit Diagnoses Not on filedocumented in this encounter Administered Medications Inactive Administered Medications - up to 3 most recent administrations Medication Order MAR Action Action Date Dose Rate Site acetaminophen injection 1,000 New Bag 12/07/2019 2:38 PM 1,000 mg 400 mL/hr mg (OFIRMEV) MUSIC ARTIST 1,000 mg, intravenous, at 400 mL/hr, Administer [...] 1,000 mg (TYLENOL) Given 12/07/2019 12:06 PM MUSIC ARTIST 1,000 mg 1,000 mg, oral, Once, On Tue12/07/19 at 1200, For 1 dose, Pre-Op aprepitant capsule 40 mg (EMEND) Given 12/07/2019 12:06 PM MUSIC ARTIST 40 mg 40 mg, oral, Once as needed, prevent ponv, Starting on Tue12/07/19 at 1145, For 1 dose, Pre-Op caffeine tablet 200 mg Given 12/07/2019 12:06 PM MUSIC ARTIST 200 mg 200 mg, oral, Once as needed, pre-op to prevent caffeine withdrawal headache or to enhance emergence from anesthesia/sedation, Starting on Tue12/07/19 at 1145, For 1 dose, Pre-Op, With sips droperidol injection 0.625 mg (INAPSINE) Given 12/07/2019 2:37 PM MUSIC ARTIST 0.625 mg 0.625 mg, intravenous, Every 6 [...] 25 mcg (SUBLIMAZE) Given 12/07/2019 2:32 PM MUSIC ARTIST 25 mcg 25 mcg, intravenous, Every 2 min PRN, For pain 4 or greater (maximum 100 mcg). If max dose of Fentanyl is reached and if pain is greater than 4, discontinue Fentanyl: give Hydromorphone, Starting on Tue12/07/19 at 1145, Pre-Op ketamine injection 10 mg (KETALAR) Given 12/07/2019 2:37 PM MUSIC ARTIST 10 mg 10 mg, intravenous, Once as needed, Pain sedation mismatch AND RASS score less than -1, Starting on Tue12/07/19 at 1430, For 1 dose, PACU (only) lactated ringers New Bag 12/07/2019 3:48 PM MUSIC ARTIST 20 mL/hr 20 mL/hr 20 mL/hr, intravenous, Continuous, Starting on Tue12/07/19 at 1400, PACU & Post-Op Continued from OR 12/07/2019 2:25 PM MUSIC ARTIST 20 mL/hr 20 mL/hr metoprolol tablet 12.5 [...] 2 mg (VERSED) Given 12/07/2019 12:28 PM MUSIC ARTIST 2 mg 2 mg, intravenous, Once as needed, anxiety, sedation, Starting on Tue12/07/19 at 1145, For 1 dose, Pre-Op ondansetron ODT disintegrating tablet 4 mg Given 12/07/2019 12:0 7 PM MUSIC ARTIST 4 mg (ZOFRAN-ODT) 4 mg, sublingual, Once, On Tue12/07/19 at 1200, For 1 dose, Pre-Op, When splitting ODT at bedside, handle with gloves and a pill splitter to prevent moisture contact. scopolamine base 1 mg Medication Applied 12/07/2019 12:11 PM 1 patch Behind Right over 3 days 1 patch MUSIC ARTIST Ear (TRANSDERM SCOP) 1 patch, transdermal, Administer [...] Recently Administered Medications Times are shown in MUSIC ARTIST. Scheduled Medication Order 12/05/2019 12/06/2019 12/07/2019 acetaminophen [...] ondansetron ODT disintegrating tablet 4 mg (ZOFRAN-ODT) ([facility]) 1207 (Given - Provider: Steph [...] (COMPLETED) 1251 (Given - Provider: Gini Garcia, COMMUNITY HEALTH PROMOTER, MILK COLLECTOR) 1,250 mg (rounded from 1,146 mg = [...]
--- OUTSIDE RECORDS SUMMARY | 2022-07-06 15:40 | XMS_ITS | Encounter Summary ---
:1965 Author Organization [facility] Address [address] [place] [address] Care Team Providers Name Role Phone Unavailable [...] you attend jew or Patient refused 2021 nondenominational services? Do [...] 11/29/2019 3:10 Results for this EXAM PM CHEMICAL RADIATION TECHNICIAN procedure are i n the results section. documented in this encounter Results NOSE-Otorhinolaryngology Image Exam (11/29/2019 3:10 PM CHEMICAL RADIATION TECHNICIAN) Specimen (Source) Anatomical Collection Method Collection Time Re ceived Time Location / / Volume Laterality 11/29/2019 3:08 PM CHEMICAL RADIATION TECHNICIAN Narrative [facility] - 11/29/2019 3:58 PM CHEMICAL RADIATION TECHNICIAN This order has been created and [...]
--- OUTSIDE RECORDS SUMMARY | 2022-07-06 15:40 | XMS_ITS | Encounter Summary ---
:1965 Author Organization [facility] Address [address] [place] [address] Care Team Providers Name Role Phone Unavailable Primary Care Provider Unavailable Reason for Visit Reason Onset Date Comments wants to have MRI done closer to home before appt 09/03/2019 [facility] Encounter Details Date Type Department Care Team Description 09/03/2019 Clinical Communication Department of [facility] Robert cabrera nts to have MRI Neurology [place] done closer to home [place], [facility] before appt [place], [place] ([facility]) [address] [facility] [address] [place], [place] [phone] [address] (Work) [phone] Social History Tobacco Use Types Packs/Day Years [...] you attend amish or Patient refused 2021 mormonism services? Do [...] or slept in a fci (including now)? Sex Assigned at Date Recorded Female 03/01/2019 10:12 AM CDT documented as of this encounter Miscellaneous Notes Telephone Encounter - Coby Beatty - 09/04/2019 8:38 AM CDT Report from Dr. Diehl and referral for MRA faxed to Dr. Blackwell at [facility] at fax [phone]. Called the patient and left a message [...] like to have her MRI done at [facility]'s before her appointment with Dr. Diehl on 09/19. Or if she could get her MRI scheduled for the same day as she is here for her appointment. She doesn't want to drive 2 days in a row. She wanted the order sent to Dr. Blackwell so I guess just send notes to Dr. Clemente Blackwell at [facility] Phone- [phone] documented in this encounter Plan of Treatment Not on filedocumented as of this encounter Visit Diagnoses Not on filedocumented in this encounter Additional Health Concerns Assessment Noted Time PHQ-9 Depression Total Score: 5 04/05/2019 8:00 AM CDT documented as of this encounter
--- OUTSIDE RECORDS SUMMARY | 2022-07-06 15:40 | XMS_ITS | Encounter Summary ---
:1965 Author Organization [facility] Address [address] [place] [address] Care Team Providers Name Role Phone Unavailable Primary Care Provider Unavailable Reason for Visit Outpatient (Routine) - Closed Specialty Diagnoses / Procedures Referred By Contact Refer red To Contact Otorhinolaryngology Jey Santana M.D. [facility] [address] [place] [address] Referral ID Status Reason Start Date Expiration Date Visits Requ ested Visits Authorized [id number] Closed 11/08/2019 11/07/2020 1 1 Encounter Details Date Type Department Care Team Description 11/29/2019 Office Visit Department of Darlin Olmedo Mucocele Nasa l Sinus Otorhinolaryngology jimmy Brumfield M.D. (Primary Dx) [place], [place] [address] [place] [address] [place] [phone] [phone] Social History Tobacco Use Types Packs/Day Years [...] you attend orthodox or Patient refused 2021 hoahaoism services? Do you belong to any clubs or No 05/17/2022 organizations such as orthodox groups, unions, fraCrowdnetic or athletic groups, or school groups? How [...] Previous sinus surgery: sinus surgery X2 in [place] and X2 at [place] per patient; mucocele notedby left eye on [...] if this occurs we will identify another moving consultant surgeon to supervise other team members to safely and seamlessly complete the procedure. Signed consent was obtained today. Patient was seen and examined today in conjunction with Dr. Darlin Olmedo ([phone]). SOMNOGRAPH TECH Associated attestation - Darlin Olmedo M.D. - 11/30/2019 10:43 AM POLYSOMNOGRAPH TECH I was the supervising physician in the delivery of the service. I saw the patient with Krista Casey APRN, PLATE TAKE OUT WORKER, MSN and agree with her history, Assessment [...]
--- OUTSIDE RECORDS SUMMARY | 2022-07-06 15:40 | XMS_ITS | Encounter Summary ---
:1965 Author Organization [facility] Address [address] [place] [id number] Care Team Providers Name Role Phone Unavailable Primary Care Provider Unavailable Encounter Details Date Type Department Care Team Description 10/02/2019 Orders Only Department of Robert Diehl Thrombosi s Arterial Neurology in [place] ([facility]) (Primary Dx) [place], [place] [address] [place] [address] [address] [place] [phone] Social History Tobacco Use Types Packs/Day Years [...] of Outside MR Neck (10/02/2019 1:01 PM AIRPLANE TECHNICIAN) Anatomical Region Laterality Modality Neuroradiology RST LOS, Neuroradiology ARZ LOS, N/A Magnetic Resonance Neuroradiology FLA LOS, Neck Specimen (Source) Anatomical Collection Method Collection Time Re ceived Time Location / / Volume Laterality 10/02/2019 1:03 PM AIRPLANE TECHNICIAN Impressions 10/02/2019 1:18 PM AIRPLANE TECHNICIAN Similar appearance of the distal right vertebral artery irregularity and mild narrowing at C1, r elated to the nonocclusive luminal thrombus, as seen on the prior CTA exams . MRA neck otherwise negative and unchanged. Narrative 10/02/2019 1:18 PM AIRPLANE TECHNICIAN EXAM: ??INTERPRETATION OF OUTSIDE MR NECK COMPARISON: [...]
--- OUTSIDE RECORDS SUMMARY | 2022-07-06 15:41 | XMS_ITS | Encounter Summary ---
:1965 Author Organization [facility] Address [address] [place] [address] Care Team Providers Name Role Phone Unavailable Primary Care Provider Unavailable Reason for Visit Reason Onset Date Comments Nicotine Dependence 04/26/2019 Encounter Details Date Type Department Care Team Description 04/26/2019 Clinical Department of Tesfaye Ortega, Nicotine Janet grady Communication Nicotine Kenna D, Dependence, [facility]ordy Alex[facility] [place], [place] [address] [place] [address] Social History Tobacco Use Types Packs/Day Years [...] you attend episcopal or Patient refused 2021 rastafarian services? Do [...] or slept in a usp (including now)? Sex Assigned at Date Recorded Female 03/01/2019 10:12 AM CDT documented as of this encounter Plan of Treatment Not on filedocumented as of this encounter Visit Diagnoses Not on filedocumented in this encounter Additional Health Concerns Assessment Noted Time PHQ-9 Depression Total Score: 5 04/05/2019 8:00 AM CDT documented as of this encounter
--- OUTSIDE RECORDS SUMMARY | 2022-07-06 15:41 | XMS_ITS | Encounter Summary ---
:1965 Author Organization [facility] Address [address] [place] [address] Care Team Providers Name Role Phone Unavailable Primary Care Provider Unavailable Reason for Referral Outpatient (Routine) - Closed Specialty Diagnoses / Procedures Referred By Contact Refer red To Contact Neurology Diagnoses Stroke (HCC) Thrombosis Arterial (HCC) Aneurysm Cerebral Unruptured (HCC) Fernie Soriano M.D. [facility] [address] [place] [phone] Referral ID Status Reason Start Date Expiration Date Visits Requ ested Visits Authorized [id number] Closed 03/31/2019 03/30/2020 1 1 Reason for Visit Reason Comments Dizziness Evaluated in silver plume with CT scan. Headache Encounter Details Date Type Department Care Team Description 03/29/2019 - Hospital Encounter [facility] Alfredo Rausch M.D., M.A. [address] [place] [address] Stroke (HCC) (Primary Dx); [facility] [address] [place] [phone] Transient Ischemic Attack; [facility], Nan Rios M.D. [address] [place] [phone] Thrombosis Arterial (HCC); [facility], Nicotine Dependence Cigarettes; Second floor Aneurysm Cerebral Unruptured ([facility]) [address] [place] [address] Social History Tobacco Use Types [...] you attend scientologist or Patient refused 2021 moravian services? Do [...] slept in a group home (including now)? Sex Assigned at Date [...] patient, follows with Dr. Estephanie Franz in [place], [place]. Primary Care Provider Phone Number: None [...] and PCP follow-up with Dr. Franz in [place], [place], scheduled for 04/02/2019. - Please be [...] 04/10/2019 2:15 PM Darlin Olmedo M.D. [facility] Spec TEST RESULTS PENDING AT DISCHARGE [...] speech at the time. She presented to [facility], where MRI/MRA head showed multiple foci [...] was discharged on a weekend, our clinical certified physician's assistant will arrange for PCP follow-up and [...] speech at the time. She presented to [facility], where MRI/MRA head showed multiple foci [...] was discharged on a weekend, our clinical certified physician's assistant will arrange for PCP follow-up and INR checks on Tuesday. RECOMMENDATIONS: - Patient to continue enoxaparin 70 mg (1 mg/kg) BID bridge to warfarin with goal INR 2-3. Patient to receive INR checks and PCP follow-up with Dr. Franz in [place], [place] as soon as possible after discharge. [...] this after visit summary to your appointment(s). [place], [place] April 02, 2019 - Tuesday --12:30 PM - Hospital Follow-Up with Dr. Gold MD, Colleague of Juana Franz MD, primary care provider, at [facility] RECOMMENDATIONS: * April 02, 2019 at 9:30 AM [facility] INR Check * [facility] You may have outpatient appointments at [facility] that changed during your hospitalization. Refer to your [facility] Patient Visit Guide (PVG) for the most current schedule of appointments and detailed instructions of tests/procedures. Call [phone], if you did not receive an PVG or need to CANCEL any [facility] appointment(s). You were discharged from the [...] are intact. There is no dysmetria on ruidtm-hd-lmev and afhi-yr-plzx. There are no abnormal or extraneous movements. [...] next week (to be arranged by clinical certified physician's assistant, in-basket message sent). Will also require [...] --Will arrange for PCP appt (Dr. Franz, [place], [place]) for INR monitoring 04/02 or earliest [...] page the neurology stroke/cerebrovascular disease service pager ([phone]) with any questions orconcerns. Kylie Rubio R.N. [...] are intact. There is no dysmetria on efhlvb-xd-yryj and oxem-sk-cupz. There are no abnormal or extraneous movements. [...] Findings discussed at 2:03 p.m with pager [phone] Additional Diagnostic Studies Ecg 12 Lead Result [...] page the neurology stroke/cerebrovascular disease service pager ([phone]) with any questions orconcerns. documented in this [...] the day of presentation and [facility], although head CT did not demonstrate any [...] developed a headache approximately 45 min later. [place] room was tilting, not spinning, and had [...] dull and mild now. She presented to [facility], where MRI/MRA head showed multiple foci [...] are intact. There is no dysmetria on dokqzm-yf-hptk and tgwe-lr-eezk. There are no abnormal or extraneous movements. [...] Findings discussed at 2:03 p.m with pager [phone] Additional Diagnostic Studies ASSESSMENT / PLAN Ms. [...] consult placed Diet: general diet, NPO at MD for DEVON Tubes/lines: Will place PIV VTE prophylaxis: therapeutic anticoagulation Code status: Full Code Disposition: Likely Home with expected discharge date pending Trent Ferrer M.D. 03/29/19 Please page the stroke/cerebrovascular neurology service pager ([phone]) for any questions or concerns. STROKE DOCUMENTATION: [...] Prior Function / Occupational Profile Level of Gooding: Independent with ADLs and functional transfers, Independent [...] Score: 24 Basic Mobility Standardized Score: 61.14 [facility] 0-100% Score: 0 % Basic Mobility [facility] Modifier: CH INTERPRETATION: Clinicians answer the AM-PAC [...] 53 y.o. female who was seen at [facility] and is being evaluated for Tobacco Use [...] Prior Function / Occupational Profile Level of Gooding: Independent with ADLs and functional transfers, Independent [...] be independent with home exercise resistive theraband (Roberdel) program for left shoulder and elbow (MET) OT Goal #3 Date: 03/30/19 @FLOW12([id number])@ Plan Patient agrees with the plan of [...] living independently in her own apartment in [place] until yesterday morning when she noted the [...] Ms. Mosquera was initially taken to the [facility] where MRI/MRA (images which I reviewed in QREADS) revealed bila teral small areas of restricted diffusion in posterior distribution involving both the cerebellar and occipital lobes. The etiology was presumed embolic and she was transferred to [place] for further evaluation here. Upon arrival at [place], Ms. Mosquera was described as alert, in [...] has lived alone in an apartment in [place] for,I believe, 5 years. She is unemployed, [...] tone: Upper and lower extremities 0/0. Coordination: Dxpcwy-kr-lpnq was 0/0. Satellite sign was symmetric. Cranial nerves II through XII: Extraocular movements were intact. Visual jhaveri were intact. Webr-hy-qfaqaunk decreased hearing acuity bilaterally. Smile symmetric. Tongue [...] diagnostic data. 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 female who presents [facility] for evaluation of vertigo and [...] an Emergency Neurology consult note. Please page [phone] with any additional questions. I personally spent [...] CHIEF COMPLAINT/REASON FOR VISIT Dizziness (Evaluated in silver plume with CT scan. ) and Headache HISTORY OF PRESENT ILLNESS 53-year-old female who presents from outside facility to [facility] ED with a chief concern of headache [...] She was transported from outside hospital to [facility] for further evaluation management by Neurology [...] do basic arithmetic No visual agnosia No cypw-ys-whonz agnosia Uphvmq-bu-ezwz normal Mbtj-tn-exzf normal Skin: Skin is warm, dry, intact [...] to the emergency department by ambulance from [facility] for evaluation of headache and difficulty with balance. Patient states that she woke up this morning and felt like her body was drunk. She subsequently developed a headache. She was seen at the outside hospital and underwent neuro imaging, laboratory evaluation, EKG testing. She now presents for neurologicalevaluation at [facility]. She is currently complaining of fatigue only. Neuro imaging at [place]: MRI head MRA demonstrates multiple foci of [...] speech at the time. She presented to [facility], where MRI/MRA head showed multiple foci [...] was discharged on a weekend, our clinical certified physician's assistant will arrange for PCP follow-up and INR checks on Tuesday. documented in this encounter Plan of Treatment Scheduled Referrals Name Type Priority Associated Order Schedule Diagnoses Neurology - Outpatient Routine Stroke (HCC) Expected: Cerebrovascular consult Referral Thrombosis 02/2019 (clinic) Arterial ([facility]) (Approximate), Aneurysm Cerebral Expires: Unruptured (HCC) 03/31/2022 [...] - Routine 03/30/2019 5:32 Results for HOSPITAL COMPLIANCE DIRECTOR - PM CDT this proc edure MONITORED [...] N/A Computed Tomography ARZ LOS, Neuroradiology FLA [facility] Specimen (Source) Anatomical Collection Method [...] the ventral aspect (series 6 image s [id number]). The lumen remains significantly irregular and there [...] well seen. The RADHA, MCA, a nd COLLECTIONS TECHNICIAN branches are unremarkable in appearance. Stable postoperative [...] the ventral aspect (series 6 image s [id number]). The lumen remains significantly irregular and there [...] well seen. The RADHA, MCA, a nd COLLECTIONS TECHNICIAN branches are unremarkable in appearance. Stable postoperative [...] Extremity, Ultrasound RST LOS, Ultrasound ARZ LOS, Faheem ateral Ultrasound Ultrasound FLA LOS Specimen (Source) [...] Prothrombin Time (PT/INR) (03/31/2019 8:12 AM CDT) [facility] Time Signature Prothrombin 11.5 9.4 - 12.5 03/31/2019 [facility] Time, P sec 8:46 AM CDT [facility] INR 1.0 0.9 - 1.1 03/31/2019 [facility] 8:46 AM CDT LABORATORIES - [facility] Comment: ----ADDITIONAL INFORMATION---- Standard intensity warfarin therapeutic range: 2.0 to 3.0 ?? High intensity warfarin therapeutic rang e: 2.5 to 3.5 Specimen Anatomical Collection Method Collection Time Receive d Time (Source) Location / / Volume Laterality Blood (Blood, 03/31/2019 8:12 AM 03/31/20 19 8:32 Venous) CDT AM CDT Trent Ferrer M.D. LAB BLOOD ADD-ON Performing Organization Address City/[facility] Phon e Number [facility] LAB[facility]ATORIES - [address] [place], [place] [address] [facility] CBC without Differential (03/31/2019 8:12 AM CDT) [facility] Method Time Signature Hemoglobin 12.9 11.6 - 03/31/2019 [facility] 15.0 g/dL 8:37 AM CDT [facility] Hematocrit 39.6 35.5 - 03/31/2019 [facility] 44.9 % 8:37 AM CDT [facility]ATORIES - [facility] Erythrocytes 4.06 3.92 - 03/31/2019 [facility] 5.13 8:37 AM CDT LABORATORIES - x10(12)/L [facility] MCV 97.5 78.2 - 03/31/2019 [facility] 97.9 fL 8:37 AM CDT [facility] RBC Distrib Width 13.2 12.2 - 03/31/2019 [facility] 16.1 % 8:37 AM CDT [facility] Platelet Count 256 157 - 371 03/31/2019 [facility] x10(9)/L 8:37 AM CDT [facility]ATORIES - [facility] Leukocytes 5.3 3.4 - 9.6 03/31/2019 [facility] x10(9)/L 8:37 AM CDT [facility]ATORIES - [facility] Specimen Anatomical Collection Method Collection Time Receive d Time (Source) Location / / Volume Laterality Blood (Blood, 03/31/2019 8:12 AM 03/31/20 19 8:31 Venous) CDT AM CDT Trent Ferrer M.D. LAB BLOOD ADD-ON Performing Organization Address City/[facility] Code Phon e Number [facility]IES - [address] [place], [place] [address] [facility] HOLTER MONITOR - HOSPITAL COMPLIANCE DIRECTOR - MONITORED IN HOSPITAL OR ED DISCHARGE (03/30/2019 5:32 PM CDT) [facility] gist Method Time Signature Recording Date [id number] HOLTER SENTINEL Analysis Date 20,190,510 HOLTER SENTINEL Max Heart Rate 125 bpm HOLTER SENTINEL Max Heart Rate [id number] HOLTER Time SENTINEL Min Heart Rate 46 bpm HOLTER SENTINEL Min Heart Rate [id number] HOLTER Time SENTINEL Mean Heart 71 bpm [...] count HOLTER Hour SENTINEL VE Max Per [id number] HOLTER Hour Time SENTINEL AF Count 0 count HOLTER SENTINEL SVT Runs 0 count HOLTER SENTINEL SVE Total 106 count HOLTER Beats SENTINEL SVE Percent 0 percent HOLTER Beats SENTINEL SVE Max Per 18 count HOLTER Hour SENTINEL SVE Max Per [id number] HOLTER Hour Time SENTINEL Specimen (Source) Anatomical [...] superior vena cava. Patent foramen ovale. ??No uvus-vp-dqfya shunt at atrial level. ??Agitated saline injection(s) performed. ??Small jeuta-xf-lhtq shunt a t atrial level at rest and with Valsalva release. Pericardial effusion. ??PROCEDURE ??Max sesophageal echocardiogram performed at the request of the primary sales agent protective service. ??Adult probe inserted without difficulty. ??Procedure performed [...] Sedation Narrator or other pertinent record in [facility] for additional procedure and sedation in formation. [...] superior vena cava. Patent foramen ovale. No qtgu-uf-wghko s ballesteros at atrial level. Agitated saline injection(s) performed. Small zaclt-lh-hzss shunt at atrial level at rest and with Valsalva release. Pericardial effusion. PROCEDURE Transeso phageal echocardiogram performed at the request of the primary sales agent protective service. Adult pr obe inserted without difficulty. Procedure [...] Prothrombin Time (PT/INR) (03/30/2019 11:42 AM CDT) [facility] Method Time Signature Prothrombin 11.3 9.4 - 12.5 03/30/2019 [facility] Time, P sec 12:05 PM CDT [facility] INR 1.0 0.9 - 1.1 03/30/2019 [facility] 12:05 PM CDT [facility] Comment: ----ADDITIONAL INFORMATION---- Standard intensity warfarin therapeutic range: 2.0 to 3.0 ?? High intensity warfarin therapeutic rang e: 2.5 to 3.5 Specimen Anatomical Collection Method Collection Time Receive d Time (Source) Location / / Volume Laterality Blood (Blood, 03/30/2019 11:42 03/30/2019 Venous) AM CDT 11:51 AM CDT Trent Ferrer M.D. LAB BLOOD ADD-ON Performing Organization Address City/State/ZIP Code Phon e Number [facility] - [address] [place], [place] [address] [facility] ECG 12 Lead (03/30/2019 9:30 AM CDT) P athologist Signature Ventricular Rate 53 BPM MUSE ECG/Min [place] Interval 150 ms MUSE QRSD Interval 84 ms MUSE QT Interval 452 ms MUSE QTC Interval 424 ms MUSE P [place] 7 degrees MUSE R [place] -11 degrees MUSE T Wave [place] 1 degrees MUSE Specimen Anatomical Collection Method [...] Potassium, S 4.1 3.6 - 5.2 03/30/2019 [facility] mmol/L 7:41 AM CDT [facility] - [facility] Sodium, S 141 135 - 145 03/30/2019 [facility] mmol/L 7:41 AM CDT [facility] - [facility] Chloride, S 106 98 - 107 03/30/2019 [facility] mmol/L 7:41 AM CDT [facility] - [facility] Bicarbonate, S 24 22 - 29 03/30/2019 [facility] mmol/L 7:41 AM CDT [facility] - [facility] Anion Gap 11 7 - 15 03/30/2019 [facility] 7:41 AM CDT [facility] - [facility] BUN (Blood 14 6 - 21 03/30/2019 [facility] Urea mg/dL 7:41 AM CDT LABORATORIES - Nitrogen), S [facility] Creatinine, S 0.73 0.59 - 03/30/2019 [facility] 1.04 mg/dL 7:41 AM CDT [facility] - [facility] eGFR-Non >90 >=60 03/30/2019 [facility] Black/ mL/min/BSA 7:41 AM CDT LABORATORIES [facility] Comment: ----ADDITIONAL INFORMATION---- Estimated GFR calculated using the 2009 CKD_EPI creatinine equation. eGFR-Black/ >90 >=60 mL/min/BSA 03/30/2019 7:41 [facility] CDT LABORATORIES [facility] Comment: ----ADDITIONAL INFORMATION---- Estimated GFR calculated using the 2009 CKD_EPI creatinine equation. Calcium, Total, S 8.9 8.6 - 10.0 mg/dL 03/30/2019 7:41 AM [facility] CDT LABORATORIES [facility] Glucose, S 100 70 - 140 mg/dL 03/30/2019 7:41 AM [facility] CDT [facility]ATORIES [facility] S Specimen Anatomical Collection Method Collection Time Receive d Time (Source) Location / / Volume Laterality Blood (Blood, 03/30/2019 6:21 AM 03/30/20 6:52 Venous) CDT AM CDT Trent Ferrer M.D. LAB BLOOD ADD-ON Performing Organization Address City/State/ZIP Code Phon e Number [facility] - [address] [place] [address] [facility] (ABNORMAL) CBC without Differential (03/30/2019 6:21 AM CDT) [facility] Method Time Signature Hemoglobin 12.5 11.6 - 03/30/2019 [facility] 15.0 g/dL 6:54 AM CDT LABORATORIES [facility] Hematocrit 37.9 35.5 - 03/30/2019 [facility] 44.9 % 6:54 AM CDT LABORATORIES [facility] Erythrocytes 3.87 (L) 3.92 - 03/30/2019 [facility] 5.13 6:54 AM CDT LABORATORIES - x10(12)/L [facility] MCV 97.9 78.2 - 03/30/2019 [facility] 97.9 fL 6:54 AM CDT LABORATORIES [facility] RBC Distrib 13.5 12.2 - 03/30/2019 [facility] Width 16.1 % 6:54 AM CDT LABORATORIES [facility] Platelet Count 245 157 - 371 03/30/2019 [facility] x10(9)/L 6:54 AM CDT [facility] Leukocytes 4.1 3.4 - 9.6 03/30/2019 [facility] x10(9)/L 6:54 AM CDT [facility]ATORIES - [facility] Specimen Anatomical Collection Method Collection Time Receive d Time (Source) Location / / Volume Laterality Blood (Blood, 03/30/2019 6:21 AM 03/30/20 19 6:44 Venous) CDT AM CDT Trent Ferrer M.D. LAB BLOOD ADD-ON Performing Organization Address [facility] Phon e Number [facility] - [address] [place], [place] [address] [facility] Coagulation Factor II Activity Assay (03/30/2019 6:20 AM CDT) athologist Signature Coag Factor II 93 75 - 145 % 03/30/2019 [facility] Assay, P 11:53 AM CDT [facility] Comment: ----ADDITIONAL INFORMATION---- This test has been modified from the palmyra treyacturer's instructions. Its performance characteri stics were determined by [facility] in a manner co nsistent with CLIA requirements. This test has not bee n cleared or approved by the U.S. Food and Drug Admin istration. Specimen Anatomical Collection Method Collection Time Receive d Time (Source) Location / / Volume Laterality Blood 03/30/2019 6:20 AM 9 CDT 11:12 AM CDT Trent Ferrer M.D. LAB BLOOD ADD-ON Performing Organization Address [facility] Phon e Number [facility] - [address] [place] [address] [facility] Protein S Antigen, Total (03/30/2019 6:20 AM CDT) athologist Signature Protein S Ag, 91 80 - 160 % 03/30/2019 [facility] Total, P 11:04 AM CDT [facility] Comment: ----ADDITIONAL INFORMATION---- This test has been modified from the palmyra Azure Solutionsacturer's instructions. Its performance characteri stics were determined by [facility] in a manner co nsistent with CLIA requirements. This test has not bee n cleared or approved by the U.S. Food and Drug Admin istration. Specimen Anatomical Collection Method Collection Time Receive d Time (Source) Location / / Volume Laterality Blood 03/30/2019 6:20 AM 9 7:17 CDT AM CDT Trent Ferrer M.D. LAB BLOOD NON ADD-ON Performing Organization Address [facility] Phon e Number [facility] - [address] [place], [place] [address] [facility] Reptilase Time, Plasma (03/30/2019 6:20 AM CDT) P athologist Signature Reptilase 17 14 - 23 03/30/2019 [facility] Time, P sec 9:49 AM CDT [facility] Comment: ----ADDITIONAL INFORMATION---- This test has been modified from the kyle cordovar's instructions. Its performance characteri stics were determined by [facility] in a manner co nsistent with CLIA requirements. This test has not bee n cleared or approved by the U.S. Food and Drug Admin istration. Specimen Anatomical Collection Method Collection Time Receive d Time (Source) Location / / Volume Laterality Blood 03/30/2019 6:20 AM 9 7:17 CDT AM CDT Trent Ferrer M.D. LAB BLOOD ADD-ON Performing Organization Address City/[facility] Code Phon e Number [facility] - [address] [place], [place] [address] [facility] (ABNORMAL) APTT Mix 1:1 (03/30/2019 6:20 AM CDT) P athologist Signature APTT Mix 1:1 42 (H) 26 - 36 03/30/2019 [facility] sec 9:49 AM CDT [facility] Comment: ----ADDITIONAL INFORMATION---- This test has been modified from the kyle cordovar's instructions. Its performance characteri stics were determined by [facility] in a manner co nsistent with CLIA requirements. This test has not bee n cleared or approved by the U.S. Food and Drug Admin istration. Specimen Anatomical Collection Method Collection Time Receive d Time (Source) Location / / Volume Laterality Blood 03/30/2019 6:20 AM 9 7:17 CDT AM CDT Trent Ferrer M.D. LAB BLOOD ADD-ON Performing Organization Address [facility] Phon e Number [facility] - [address] [place] [address] [facility] Heparin Anti-Xa Assay (03/30/2019 6:20 AM CDT) athologist Signature Heparin 0.38 IU/mL 03/30/2019 [facility] Anti-Xa, P 7:12 AM CDT LAB[facility]ATORIES - [facility] Comment: UFH therapeutic range: ?? 0.30-0.70 IU/mL [...] LAB BLOOD NON ADD-ON Performing Organization Address [facility] Phon e Number [facility] - [address] [place] [address] [facility] Beta-2 Glycoprotein 1 Antibodies, IgG and IgM (03/30/2019 6:20 AM CDT) athologist Signature Beta 2 GP1 Ab <9.4 <15.0 03/30/2019 [facility] IgG, S (Negative) 7:[address] U/mL [facility] Beta 2 GP1 Ab <9.4 <15.0 03/30/2019 [facility] IgM, S (Negative) 7:[address] U/mL [facility] Specimen Anatomical Collection Method Collection Time Receive d Time (Source) Location / / Volume Laterality Blood (Blood, 03/30/2019 6:20 AM 03/30/20 19 9:55 Venous) CDT AM CDT Trent Ferrer M.D. LAB BLOOD ADD-ON Performing Organization Address City/[facility]/ZIP Code Phon e Number [facility] [address] [place] [address] [facility] Phospholipid (Cardiolipin) Antibodies, IgG and IgM (03/30/2019 6:20 AM CDT) P athologist Signature Phospholipid Ab <9.4 <15.0 03/30/2019 [facility] IgM, S (Negative) 3:49 PM CDT [facility] [facility] Phospholipid Ab <9.4 <15.0 03/30/2019 [facility] IgG, S (Negative) 3:49 PM CDT [place] [facility] Specimen Anatomical Collection Method Collection Time Receive d Time (Source) Location / / Volume Laterality Blood (Blood, 03/30/2019 6:20 AM 03/30/20 19 9:55 Venous) CDT AM CDT Trent Ferrer M.D. LAB BLOOD ADD-ON Performing Organization Address City/[facility]/ZIP Code Phon e Number [address] [place] [address] [facility] (ABNORMAL) Thrombophilia Profile (03/30/2019 6:20 AM CDT) Patholo gist Method Time Signature Prothrombin Time 10.9 10.3 - 03/30/2019 [facility] (PT), P 12.8 sec 9:35 AM CDT LABORATORIES - [facility] INR 1.0 03/30/2019 [facility] 9:35 AM CDT [facility]ATOR[facility] - [facility] Activated 57 (H) 26 - 36 03/30/2019 [facility] Partial sec 9:46 AM CDT LABORATORIES - Thrombopl Time, [facility] DRVVT Screen 0.7 0.0 - 1.1 03/30/2019 [facility] Ratio ratio 9:35 AM CDT [facility]ATORIES - [facility] Thrombin Time 73 (H) 15 - 23 03/30/2019 [facility] (Bovine), P sec 9:46 AM CDT LAB[facility]ATORIES - [facility] Comment: ----ADDITIONAL INFORMATION---- This test has been modified from the man ufacturer's instructions. Its performance characteri stics were determined by [facility] in a manner co nsistent with CLIA requirements. This test has not bee n cleared or approved by the U.S. Food and Drug Admin istration. Fibrinogen, P 276 200 - 430 mg/dL 03/30/2019 10:04 AM T [facility] PUS Comment: ----ADDITIONAL INFORMATION---- This test has been modified from the [employer] Solutions[employer]urer's instructions. Its performance characteri stics were determined by [facility] in a manner co nsistent with CLIA requirements. This test has not bee n cleared or approved by the U.S. Food and Drug Admin istration. Fibrinogen 0.26 0.00 - 0.50 03/30/2019 12:44 PM [facility] INIC Equivalent Units mcg/mL FEU T [facility] (FEU) [facility] D-Dimer Units (DDU) 130 0 - 250 ng/mL 03/30/2019 12:44 PM [facility] D-Dimer T [facility] Soluble Fibrin <8 0.0 - 7.9 mcg/mL 03/30/2019 1:19 PM [facility] Monomer T [facility] Comment: ----ADDITIONAL INFORMATION---- This test was developed and its performa nce characteristics determined by [facility] in a manner co nsistent with CLIA requirements. This test has not bee n cleared or approved by the U.S. Food and Drug Admin istration. Antithrombin Activity, 99 80 - 130 % 03/30/2019 10:05 AM [facility] P T [facility] Comment: ----ADDITIONAL INFORMATION---- This test has been modified from the [employer]'s instructions. Its performance characteri stics were determined by [facility] in a manner co nsistent with CLIA requirements. This test has not bee n cleared or approved by the U.S. Food and Drug Admin istration. Protein C Activity, P 131 70 - 150 % 03/30/2019 9:33 A M T [facility] Comment: ----ADDITIONAL INFORMATION---- This test has been modified from the [employer]'s instructions. Its performance characteri stics were determined by [facility] in a manner co nsistent with CLIA requirements. This test has not bee n cleared or approved by the U.S. Food and Drug Admin istration. Protein S Ag, Free, 59 (L) 65 - 160 % 03/30/2019 10:19 AM [facility] P CDT LABORATORIES - [facility] JILLU Chloe Comment: ----ADDITIONAL INFORMATION---- This test has been modified from the palmyra ufacturer's instructions. Its performance characteri stics were determined by [facility] in a manner co nsistent with CLIA requirements. This test has not bee n cleared or approved by the U.S. Food and Drug Admin istration. APCRV Ratio 3.0 >or=2.3 03/30/2019 10:11 [facility] AM CDT [facility]ATOR[facility] - [facility] Prothrombin [id number] Negative Negative 04/02/2019 5:19 [facility] Mutation, B PM CDT LABORATORIES [facility] PTNT Reviewed By Lewis Moreno, 04/02/2019 5:19 [facility] MBBS CDT LAB[facility]ATORIES [facility] PTNT Interpretation This individual DOES NOT hav e the Prothrombin [id number] mutation. Although the 04/02/2019 5:19 [facility] Prothrombin [id number] mutation is absent, the chloe vikathy may have other genetic PM CDT LABORATORIES - and environmental risk factors for thrombosis. Alanna r genetic consultation [facility] and counseling of potentially affected family members [facility] [place] testing. Comment: ----ADDITIONAL INFORMATION---- This test is a direct mutation analysis using PCR amplification, signal generation and release by cleavage of se quence specific alleles ([employer], [employer], [place], [place]). This test has been modified from the palmyra ufacturer's instructions. Its performance characteristics were determi jayesh by [facility] in a manner consistent with CLIA requirements. This test has not been cleared or approved by the U.S. Food and Drug Administration . Reviewed by: Milad Emerson M.D. 04/03/2019 1:35 PM [facility] CDT [facility]IES [facility] Interpretation ?Type of Study: ?? Thrombophilia Profile 04/03/2019 1:35 PM [facility] ?IMPRESSION: ??1) Decreased protein S free antigen, a cquired versus CDT LABORATORIES - congenital. ??See comments and suggest clinical correlation. [facility] ?2) Data are consistent with [...] patient does n ot have the prothrombin S62959N mutation. ?Separately performed and reported testing for beta-2 glycoprotein I and anticardiolipin antibodies (IgG and IgM isotypes) demonstrat ed normal results, providing no evidence of antiphospholipid antibodie s by these methodologies. Specimen Anatomical Collection Method Collection Time Receive d Time (Source) Location / / Volume Laterality Blood (Blood, 03/30/2019 6:20 AM 03/30/20 19 8:13 Venous) CDT AM CDT Narrative [facility] - 04/03/2019 1:37 PM CDT Specimen Information: Specimen ID: [id number] Specimen Type: Blood Specimen Collection Start Date: 9 ??6:20 AM Specimen Received Date: 03/30/2019 ??8:13 AM Specimen ID: [id number] Specimen Type: Blood Specimen Collection Start Date: ??6:20 AM Specimen Received Date: 03/30/2019 ??7:17 AM Specimen ID: [id number] Specimen Type: Blood Specimen Collection Start Date: ??6:20 AM Specimen Received Date: 03/30/2019 ??7:17 AM Specimen ID: [id number] Specimen Type: Blood Specimen Collection Start Date: ??6:20 AM Specimen Received Date: 03/30/2019 ??7:17 AM Specimen ID: [id number] Specimen Type: Blood Specimen Collection Start Date: ??6:20 AM Specimen Received Date: 03/30/2019 ??7:17 AM Specimen ID: [id number] Specimen Type: Blood Specimen Collection Start Date: ??6:20 AM Specimen Received Date: 03/30/2019 ??7:17 AM Trent Ferrer M.D. LAB BLOOD NON ADD-ON Performing Organization Address City/State/ZIP Code Phon e Number [facility] - [address] [place], [place] [address] [facility] Heparin Anti-Xa Assay (03/29/2019 11:28 PM CDT) P athologist Signature Heparin 0.31 IU/mL 03/30/2019 [facility] Anti-Xa, P 12:05 AM CDT LABORATORIES - [facility] Comment: UFH therapeutic range: ?? 0.30-0.70 IU/mL [...] LAB BLOOD NON ADD-ON Performing Organization Address City/[facility]/ZIP Code Phon e Number [facility] - [address] [place] [address] [facility] Hemoglobin A1c (03/29/2019 6:05 PM CDT) Analysis Performed At Patho logist Time Signature Hemoglobin A1c, 5.6 4.0 - 5.6 03/29/2019 [facility] B % 6:50 PM CDT [facility] Specimen Anatomical Collection Method Collection Time Receive d Time (Source) Location / / Volume Laterality Blood (Blood, 03/29/2019 6:05 PM 03/29/20 19 6:28 Venous) CDT PM CDT Trent Ferrer M.D. LAB BLOOD ADD-ON Performing Organization Address City/[facility] Phon e Number [facility] - [address] [place] [address] [facility] (ABNORMAL) Lipid Panel (03/29/2019 6:05 PM CDT) Patholo gist Method Time Signature Cholesterol, 204 (H) mg/dL 03/29/2019 [facility] Total 7:09 PM CDT [facility] Comment: ----REFERENCE VALUE---- Desirable: < 200 Borderline high: 200 - 239 High: > or = 240 Triglycerides 104 mg/dL 03/29/2019 7:09 PM CDT [facility] Comment: ----REFERENCE VALUE---- Normal: <150 Borderline high: 150-199 High: 200-499 Very high: > or =500 Cholesterol, HDL, S 91 >=50 mg/dL 03/29/2019 7:09 PM CDT [facility] Calculated LDL 92 mg/dL 03/29/2019 7:09 PM CDT [facility] Comment: ----REFERENCE VALUE---- Desirable: <100 Above Desirable: 100-129 Borderline high: 130-159 High: 160-189 Very high: > or =190 Cholesterol, Non-HDL, 113 mg/dL 03/29/2019 7:0 9 PM CDT [facility] Comment: ----REFERENCE VALUE---- Desirable: <130 Above Desirable: 130-159 Borderline high: 160-189 High: 190-219 Very high: > or =220 Specimen Anatomical Collection Method Collection Time Receive d Time (Source) Location / / Volume Laterality Blood (Blood, 03/29/2019 6:05 PM 03/29/20 19 6:28 Venous) CDT PM CDT Trent Ferrer M.D. LAB BLOOD ADD-ON Performing Organization Address City/State/ZIP Code Phon e Number [facility] - [address] [place] [address] [facility] S-TSH (Thyroid-Stimulating Hormone - Sensitive) (03/29/2019 6:05 PM CDT) athologist Signature TSH, Sensitive 1.6 0.3 - 4.2 03/29/2019 [facility] mIU/L 7:09 PM CDT [facility] Specimen Anatomical Collection Method Collection Time Receive d Time (Source) Location / / Volume Laterality Blood (Blood, 03/29/2019 6:05 PM 03/29/20 19 6:28 Venous) CDT PM CDT Trent Ferrer M.D. LAB BLOOD ADD-ON Performing Organization Address City/[facility]/ZIP Code Phon e Number [facility] - [address] APTT (Activated Partial Thromboplastin Time) (03/29/2019 4:46 PM CDT) athologist Signature Activated 29 25 - 37 03/29/2019 [facility] Partial sec 5:01 PM CDT LABORATORIES - [facility] Specimen Anatomical Collection Method Collection Time Receive d Time (Source) Location / / Volume Laterality Blood (Blood, 03/29/2019 4:46 PM 03/29/20 19 4:52 Venous) CDT PM CDT Trent Ferrer M.D. LAB BLOOD ADD-ON Performing Organization Address City/[facility]/ZIP Code Phon e Number [facility] - [address] [place] [address] [facility] CT Head Neck Angiogram with IV Contrast (03/29/2019 3:41 PM CDT) Anatomical Region Laterality Modality Head and Neck, Neuroradiology RST LOS, Neuroradiology N/A Computed Tomography [facility], Neuroradiology [facility] Specimen (Source) Anatomical Collection Method Collection Time Re ceived Time Location / / Volume Laterality 03/29/2019 4:19 PM CDT Impressions 03/29/2019 4:34 PM CDT IMPRESSION: 8mm length focal filling defect in distal right vertebral artery at C1 level concerning for thrombus. Findin gs discussed at 2:03 p.m with pager [phone] Narrative 03/29/2019 4:34 PM CDT EXAM: CT [...] gs discussed at 2:03 p.m with pager [phone] Eliseo Mejias M.D. IMGeronimo CT PROCEDURES CT [...] gs discussed at 2:03 p.m with pager [phone] Narrative 03/29/2019 4:34 PM CDT EXAM: CT [...] gs discussed at 2:03 p.m with pager [phone] Eliseo Mejias M.D. IMGeronimo CT PROCEDURES (ABNORMAL) CBC with Differential, Blood (03/29/2019 2:04 PM CDT) [facility] Method Time Signature Hemoglobin 12.4 11.6 - 03/29/2019 [facility] 15.0 g/dL 2:11 PM CDT LABORATORIES - [facility] Hematocrit 37.0 35.5 - 03/29/2019 [facility] 44.9 % 2:11 PM CDT LABORATORIES - [facility] Erythrocytes 3.79 (L) 3.92 - 03/29/2019 [facility] 5.13 2:11 PM CDT LABORATORIES - x10(12)/L [facility] MCV 97.6 78.2 - 03/29/2019 [facility] 97.9 fL 2:11 PM CDT LABORATORIES - [facility] RBC Distrib 13.3 12.2 - 03/29/2019 [facility] Width 16.1 % 2:11 PM CDT LABORATORIES - [facility] Platelet Count 238 157 - 371 03/29/2019 [facility] x10(9)/L 2:11 PM CDT [facility]ATORIES - [facility] Leukocytes 4.7 3.4 - 9.6 03/29/2019 [facility] x10(9)/L 2:11 PM CDT LABORATORIES - [facility] Neutrophils 2.33 1.56 - 03/29/2019 [facility] 6.45 2:11 PM CDT LABORATORIES - x10(9)/L [facility] Lymphocytes 1.74 0.95 - 03/29/2019 [facility] 3.07 2:11 PM CDT LABORATORIES - x10(9)/L [facility] Monocytes 0.32 0.26 - 03/29/2019 [facility] 0.81 2:11 PM CDT LABORATORIES - x10(9)/L [facility] Eosinophils 0.22 0.03 - 03/29/2019 [facility] 0.48 2:11 PM CDT LABORATORIES - x10(9)/L [facility] Basophils 0.04 0.01 - 03/29/2019 [facility] 0.08 2:11 PM CDT LABORATORIES - x10(9)/L [facility] Specimen Anatomical Collection Method Collection Time Receive d Time (Source) Location / / Volume Laterality Blood (Blood, 03/29/2019 2:04 PM 03/29/20 19 2:08 Venous) CDT PM CDT Eliseo Mejias M.D. LAB BLOOD ADD-ON Performing Organization Address City/State/ZIP Code Phon e Number [facility] - [address] [place], [place] [address] [facility] Basic Metabolic Panel (03/29/2019 2:04 PM CDT) athologist Signature Potassium, P 4.0 3.6 - 5.2 03/29/2019 [facility] mmol/L 2:24 PM CDT [facility]ATOR[facility] - [facility] Sodium, P 142 135 - 145 03/29/2019 [facility] mmol/L 2:24 PM CDT [facility] - [facility] Chloride, P 107 98 - 107 03/29/2019 [facility] mmol/L 2:24 PM CDT [facility] - [facility] Bicarbonate, P 24 22 - 29 03/29/2019 [facility] mmol/L 2:24 PM CDT [facility]ATOR[facility] - [facility] Anion Gap, P 11 7 - 15 03/29/2019 [facility] 2:24 PM CDT LABORATORIES [facility] BUN (Blood 17 6 - 21 03/29/2019 [facility] Urea mg/dL 2:24 PM CDT LABORATORIES - Nitrogen), P [facility] Creatinine, P 0.81 0.59 - 03/29/2019 [facility] 1.04 mg/dL 2:24 PM CDT LAB[facility]ATORIES [facility] eGFR-Black/Afr >90 >=60 03/29/2019 [facility] ican Guyanese mL/min/BSA 2:24 PM CDT LABORATORIES [facility] Comment: ----ADDITIONAL INFORMATION---- Estimated GFR calculated using the 2009 CKD_EPI creatinine equation. eGFR Non-Black/ 82 >=60 mL/min/BSA 03/29/2019 2:24 PM [facility] Guyanese T [facility] Comment: ----ADDITIONAL INFORMATION---- Estimated GFR calculated using the 2009 CKD_EPI creatinine equation. Calcium, Total, P 8.7 8.6 - 10.0 mg/dL 03/29/2019 2:24 PM [facility] CDT LABORATORIES [facility] Glucose, P 101 70 - 140 mg/dL 03/29/2019 2:24 PM [facility] Specimen Anatomical Collection Method Collection Time Receive d Time (Source) Location / / Volume Laterality Blood (Blood, 03/29/2019 2:04 PM 03/29/20 19 2:08 Venous) CDT PM CDT Eliseo Mejias M.D. LAB BLOOD ADD-ON Performing Organization Address City/State/ZIP Code Phon e Number [facility] - [address] [place], [place] [address] [facility] documented in this encounter Visit [...] RN used the order due time instead.) [phone] (Handoff - Provider: Christiano MoyerBrittonNBritton)[phone] (Stopped - Provider: Marlene Irwin R.N.) 0-40 [...] (LMX) 1 application, topical, 4 times daily [place] N, mild pain or score 1-3 of [...]
--- OUTSIDE RECORDS SUMMARY | 2022-07-06 15:41 | XMS_ITS | Encounter Summary ---
:1965 Author Organization [facility] Address [address] [place] [address] Care Team Providers Name Role Phone Unavailable Primary Care Provider Unavailable Reason for Visit Outpatient (Routine) - Closed Specialty Diagnoses / Procedures Referred By Contact Refer red To Contact Otorhinolaryngology Diagnoses Sinus Nose Disorder [facility]itis [facility] [address] [place] [address] Referral ID Status Reason Start Date Expiration Date Visits Requ ested Visits Authorized [id number] Closed 01/10/2019 01/10/2020 1 1 Encounter Details Date Type Department Care Team Description 03/01/2019 Comprehensive Visit Department of Honorio, Sinusit is Chronic (Primary Dx); Otorhinolaryngology in [place] , [facility] Nose [facility] 200 [facility] [address] [place] [phone] [place] [id number] Social History Tobacco Use Types Packs/Day Years [...] you attend methodist or Patient refused 2021 muslim services? 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 Decongestion: no improvement with decongestion. Modified Wright: not performed. Rigid exam with a 30 [...] obtained. - Obtained outside operative reports from [place] - Discussed risks and benefits including but [...]
--- OUTSIDE RECORDS SUMMARY | 2022-07-06 15:41 | XMS_ITS | Encounter Summary ---
:1965 Author Organization [facility] Address [address] [place] [id number] Care Team Providers Name Role Phone Unavailable Primary Care Provider Unavailable Reason for Visit Reason Onset Date Comments Telephone call 04/24/2019 Blanca Encounter Details Date Type Department Care Team Description 04/24/2019 Clinical Communication Department of Blanca, Tele phone call Neurology in Nan Bose M.D. (Blanca) [place], [facility] [place], [place] [address] [place] [phone] [place], [place] [phone] (Work) [phone] Social History Tobacco Use Types Packs/Day Years [...] you attend jew or Patient refused 2021 sabianist services? Do [...] The patient contacted Dr. Henry's office at [facility] for a PFO closure. Depending on your answer would decide if the patient was a candidate for PFO closure. They read your 04/04/18 hospital summary in [facility], but the answer is unclear. Their fax is [phone]. thanks documented in this encounter Plan of Treatment Not on filedocumented as of this encounter Visit Diagnoses Not on filedocumented in this encounter Additional Health Concerns Assessment Noted Time PHQ-9 Depression Total Score: 5 04/05/2019 8:00 AM CDT documented as of this encounter
--- OUTSIDE RECORDS SUMMARY | 2022-07-06 15:41 | XMS_ITS | Encounter Summary ---
:1965 Author Organization [facility] Address [address] [place] [address] Care Team Providers Name Role Phone Unavailable [...] or slept in a mcc (including now)? Sex Assigned at Date Recorded [...]
--- OUTSIDE RECORDS SUMMARY | 2022-07-06 15:41 | XMS_ITS | Encounter Summary ---
:1965 Author Organization [facility] Address [address] [place] [address] Care Team Providers Name Role Phone Unavailable [...] you attend temple or Patient refused 2021 sikh services? Do [...]
--- OUTSIDE RECORDS SUMMARY | 2022-07-06 15:41 | XMS_ITS | Encounter Summary ---
:1965 Author Organization [facility] Address [address] [place] [address] Care Team Providers Name Role Phone Unavailable Primary Care Provider Unavailable Reason for Visit Reason Onset Date Comments Prior Medical Records/Sinus CT 03/02/2019 Encounter Details Date Type Department Care Team Description 03/02/2019 Clinical Department of Honorio, Prior Medical Communication Otorhinolaryngology in [place] rds/Sinus CT [place], [place] Lilian 200 [facility] [address] [place] [phone] [place] [address] Social History Tobacco Use Types Packs/Day Years [...] you attend cheondoism or Patient refused 2021 jew services? Do [...] or slept in a chcf (including now)? Sex Assigned at Date Recorded Female 03/01/2019 10:12 AM CDT documented as of this encounter Miscellaneous Notes Telephone Encounter - Coby Sol - 03/02/2019 8:13 AM CDT Per [place] (Dr. Olmedo), [facility] (Dr. Mckeon) ([phone]) was contacted. The previousmedical records have been received and sent for scanning into pt's chart. [facility] will be pushed. Coby documented in this encounter Plan of Treatment Not on filedocumented as of this encounter Visit Diagnoses Not on filedocumented in this encounter
--- OUTSIDE RECORDS SUMMARY | 2022-07-06 15:41 | XMS_ITS | Encounter Summary ---
:1965 Author Organization [facility] Address [address] [place] [address] Care Team Providers Name Role Phone Unavailable Primary Care Provider Unavailable Encounter Details Date Type Department Care Team Description 04/04/2019 - Hospital Encounter [facility] Blanca, Stroke (H CC) (Primary Dx); 04/05/2019 [facility] M.D. Decline Functional Status; [facility], [address] [place] [address] Second floor [phone] [place] [address] [place], [place] (Work) [phone] Social History Tobacco Use [...] you attend jainism or Patient refused 2021 roman catholic services? [...] up with your primary care provider in [place], [place] for ongoing monitoring of this. - Follow-up in [facility] (Dr. Diehl) in approximately 3 months??? time [...] use disorder who initially was admitted to [facility] from 03/29/2019 to 03/31/2019 after presenting with [...] use disorder who initially was admitted to [facility] from 03/29/2019 to 03/31/2019 after presenting with [...] and to follow up with Dr. Diehl. ?? On the morning of 04/04/2019, she [...] up with your primary care provider in [place], [place] for ongoing monitoring of this. - Follow-up in [facility] (Dr. Diehl) in approximately 3 months??? time [...] only on level surfaces with therapist managing quality assurance monitor body while inpatient. Stairs not assessed. RECOMMENDATIONS: Recommend [...] by Jessie Candelario P.T., D.P.T. Contact information: [facility], [address] Beryl Gaytan, Laquita Guardado - 04/05/2019 7:21 AM CDT Take a copy of this after visit summary to your appointment(s). [place], [place] April 10, 2019 -Tuesday --11:15 AM - Hospital Follow-Up with Dr. Rosalva MD Colleague of Juana Franz MD primary care provider, at [facility] RECOMMENDATIONS: * * [facility] You may have outpatient appointments at [facility] that changed during your hospitalization. Refer to your [facility] Patient Visit Guide (PVG) for the most current schedule of appointments and detailed instructions of tests/procedures. Call [phone], if you did not receive an PVG or need to CANCEL any [facility] appointment(s). You were discharged from the Neurology [...] No acute overnight events. Vertigo has improved. Vfcc-bv-ghctshkn headache continues. No new symptoms or concerns. [...] use disorder who initially was admitted to [facility] from 03/29/2019 to 03/31/2019 after presenting with [...] being followed by a provider at the [facility]. Dose was increased to 1.5 tabs (of [...] Noted ??? Rhinosinusitis Chronic 03/01/2019 ??? Stroke ([facility]) 03/29/2019 ??? Anxiety Generalized Disorder 03/29/2019 ??? Chronic Pain Syndrome 03/29/2019 ??? Fibromyalgia 03/29/2019 ??? 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 Sinusitis Recurrent 03/29/2019 ??? 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 Nicotine Dependence Cigarettes 03/29/2019 ??? 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 Transient Ischemic Attack ??? Aneurysm Cerebral Unruptured ([facility]) 03/30/2019 ??? Patent Foramen Ovale ([facility]) 03/31/2019 Current Facility-Administered Medications: ??? acetaminophen tablet 1,000 mg (TYLENOL), 1,000 mg, oral, Q6H, Beau Hall M.D., 1,000 mg at 04/05/19 0831 ??? [...] 2 spray, each nostril, Daily at bedtime, Cleemnte Aiken M.D., 2 spray at 04/04/199 ??? [...] shows no new changes. MRI may not guide changer at this point as she is now [...] 0 and symmetric in all muscle groups. Dnmffo-ocpz-ydldcc and heel- montes testing is normal. Deep [...] to clarify this, but would not necessarily guide changer. An MRI brain with and without contrast [...] baseline. Have triaged to therapy only; no remelt furnace expediter consult appears to be necessary at this time. If at any time, the therapists or referring service feel that a remelt furnace expediter review is necessary, please send a new [...] Prior Function / Occupational Profile Level of Counselor: Independent with ADLs and functional transfers Lives [...] Goal Met 04/05/19 Progress: Improving as expected @[id number]([id number])@ Plan Patient agrees with the plan of [...] Prior Function / Occupational Profile Level of Counselor: Independent with ADLs and functional transfers Lives [...] for safety and for therapist to bring quality assurance monitor body, no obvious loss of balance noted, patient appeared steady with quick turns Training/Intervention: supervision for therapist to bring quality assurance monitor body Response: Patient mobilizing 200+ meters with no [...] for safety and for therapist to bring quality assurance monitor body, no obvious loss of balance noted, patient appeared steady with quick turns Training/Intervention: supervision for therapist to bring quality assurance monitor body Response: Patient mobilizing 200+ meters with no [...] use disorder who initially was admitted to [facility] from 03/29/2019 to 03/31/2019 after presenting with [...] Potassium, S 4.1 3.6 - 5.2 04/05/2019 [facility] mmol/L 9:28 AM CDT [facility] Sodium, S 142 135 - 145 04/05/2019 [facility] mmol/L 9:28 AM CDT [facility] - [facility] Chloride, S 105 98 - 107 04/05/2019 [facility] mmol/L 9:28 AM CDT [facility] - [facility] Bicarbonate, S 25 22 - 29 04/05/2019 [facility] mmol/L 9:28 AM CDT [facility] - [facility] Anion Gap 12 7 - 15 04/05/2019 [facility] 9:28 AM CDT [facility] - [facility] BUN (Blood 20 6 - 21 04/05/2019 [facility] Urea mg/dL 9:28 AM CDT LABORATORIES - Nitrogen), S [facility] Creatinine, S 0.88 0.59 - 04/05/2019 [facility] 1.04 mg/dL 9:28 AM CDT LABORATORIES [facility] eGFR-Non 74 >=60 04/05/2019 [facility] Black/ mL/min/BSA 9:28 AM CDT LABORATORIES [facility] Comment: ----ADDITIONAL INFORMATION---- Estimated GFR calculated using the 2009 CKD_EPI creatinine equation. eGFR-Black/ 86 >=60 mL/min/BSA 04/05/2019 9:28 [facility] CDT LABORATORIES [facility] Comment: ----ADDITIONAL INFORMATION---- Estimated GFR calculated using the 2009 CKD_EPI creatinine equation. Calcium, Total, S 9.2 8.6 - 10.0 mg/dL 04/05/2019 9:28 AM [facility] CDT [facility] Glucose, S 124 70 - 140 mg/dL 04/05/2019 9:28 AM [facility] CDT LABORATORIES [facility] S Specimen Anatomical Collection Method Collection Time Receive d Time (Source) Location / / Volume Laterality Blood (Blood, 04/05/2019 8:07 AM 04/05/20 19 8:26 Venous) CDT AM CDT Clemente Aiken M.D. LAB BLOOD ADD-ON Performing Organization Address City/State/ZIP Code Phon e Number [facility] LABORATORIES - [address] CBC with Differential, Blood (04/05/2019 8:07 AM CDT) [facility] Method Time Signature Hemoglobin 12.9 11.6 - 04/05/2019 [facility] 15.0 g/dL 8:38 AM CDT LAB[facility]ATORIES [facility] Hematocrit 38.0 35.5 - 04/05/2019 [facility] 44.9 % 8:38 AM CDT [facility]IES [facility] Erythrocytes 3.94 3.92 - 04/05/2019 [facility] 5.13 8:38 AM CDT LABORATORIES - x10(12)/L [facility] MCV 96.4 78.2 - 04/05/2019 [facility] 97.9 fL 8:38 AM CDT LAB[facility]ATORIES [facility] RBC Distrib Width 13.2 12.2 - 04/05/2019 [facility] 16.1 % 8:38 AM CDT [facility]IES [facility] Platelet Count 226 157 - 371 04/05/2019 [facility] x10(9)/L 8:38 AM CDT [facility] Leukocytes 5.5 3.4 - 9.6 04/05/2019 [facility] x10(9)/L 8:38 AM CDT [facility] - [facility] Neutrophils 3.00 1.56 - 04/05/2019 [facility] 6.45 8:38 AM CDT LABORATORIES - x10(9)/L [facility] Lymphocytes 1.84 0.95 - 04/05/2019 [facility] 3.07 8:38 AM CDT LABORATORIES - x10(9)/L [facility] Monocytes 0.37 0.26 - 04/05/2019 [facility] 0.81 8:38 AM CDT LABORATORIES - x10(9)/L [facility] Eosinophils 0.22 0.03 - 04/05/2019 [facility] 0.48 8:38 AM CDT LABORATORIES - x10(9)/L [facility] Basophils 0.05 0.01 - 04/05/2019 [facility] 0.08 8:38 AM CDT LABORATORIES - x10(9)/L [facility] Specimen Anatomical Collection Method Collection Time Receive d Time (Source) Location / / Volume Laterality Blood (Blood, 04/05/2019 8:07 AM 04/05/20 19 8:26 Venous) CDT AM CDT Clemente Aiken M.D. LAB BLOOD ADD-ON Performing Organization Address City/State/ZIP Code Phon e Number [facility] LABORATORIES - 200 [place], [place] [address] [facility] (ABNORMAL) Prothrombin Time (PT/INR) (04/05/2019 8:07 AM CDT) [facility] gist Method Time Signature Prothrombin 21.9 (H) 9.4 - 04/05/2019 [facility] Time, P 12.5 sec 8:44 AM CDT [facility]ATOR[facility] - [facility] INR 2.0 0.9 - 1.1 04/05/2019 [facility] 8:44 AM CDT LABORATORIES [facility] Comment: ----ADDITIONAL INFORMATION---- Standard intensity warfarin [...] City/State/ZIP Code Phon e Number [facility] LABORATORIES - [address] [place], [place] [address] [facility] CT Head Neck Angiogram with IV Contrast [...] CDT) athologist Signature Heparin 0.81 IU/mL 04/04/2019 [facility] Anti-Xa, P 7:40 PM CDT [facility] Comment: UFH therapeutic range: ?? 0.30-0.70 IU/mL [...] LAB BLOOD NON ADD-ON Performing Organization Address [facility] Phon e Number [facility] LABORATORIES - [address] [place] [address] [facility] (ABNORMAL) Prothrombin Time (PT/INR) (04/04/2019 5:25 PM CDT) [facility] Numerous Method Time Signature Prothrombin 20.1 (H) 9.4 - 04/04/2019 [facility] Time, P 12.5 sec 5:54 PM CDT [facility]ATOR[facility] - [facility] INR 1.8 0.9 - 1.1 04/04/2019 [facility] 5:54 PM CDT [facility] Comment: ----ADDITIONAL INFORMATION---- Standard intensity warfarin therapeutic range: 2.0 to 3.0 ?? High intensity warfarin therapeutic rang e: 2.5 to 3.5 Specimen Anatomical Collection Method Collection Time Receive d Time (Source) Location / / Volume Laterality Blood (Blood, 04/04/2019 5:25 PM 04/04/20 19 5:32 Venous) CDT PM CDT Clemente Aiken M.D. LAB BLOOD ADD-ON Performing Organization Address [facility] Phon e Number [facility] LABORATORIES - [address] [place] [address] [facility] (ABNORMAL) CBC with Differential, Blood (04/04/2019 5:25 PM CDT) [facility] Numerous Method Time Signature Hemoglobin 12.1 11.6 - 04/04/2019 [facility] 15.0 g/dL 5:35 PM CDT LABORATORIES [facility] Hematocrit 36.3 35.5 - 04/04/2019 [facility] 44.9 % 5:35 PM CDT [facility] Erythrocytes 3.76 (L) 3.92 - 04/04/2019 [facility] 5.13 5:35 PM CDT LABORATORIES - x10(12)/L [facility] MCV 96.5 78.2 - 04/04/2019 [facility] 97.9 fL 5:35 PM CDT [facility]ATOR[facility] - [facility] RBC Distrib 12.9 12.2 - 04/04/2019 [facility] Width 16.1 % 5:35 PM CDT [facility]ATOR[facility] - [facility] Platelet Count 224 157 - 371 04/04/2019 [facility] x10(9)/L 5:35 PM CDT [facility]ATOR[facility] - [facility] Leukocytes 4.6 3.4 - 9.6 04/04/2019 [facility] x10(9)/L 5:35 PM CDT [facility]ATOR[facility] - [facility] Neutrophils 2.09 1.56 - 04/04/2019 [facility] 6.45 5:35 PM CDT LABORATORIES - x10(9)/L [facility] Lymphocytes 1.88 0.95 - 04/04/2019 [facility] 3.07 5:35 PM CDT LABORATORIES - x10(9)/L [facility] Monocytes 0.39 0.26 - 04/04/2019 [facility] 0.81 5:35 PM CDT LABORATORIES - x10(9)/L [facility] Eosinophils 0.18 0.03 - 04/04/2019 [facility] 0.48 5:35 PM CDT LABORATORIES - x10(9)/L [facility] Basophils 0.04 0.01 - 04/04/2019 [facility] 0.08 5:35 PM CDT LABORATORIES - x10(9)/L [facility] Specimen Anatomical Collection Method Collection Time Receive d Time (Source) Location / / Volume Laterality Blood (Blood, 04/04/2019 5:25 PM 04/04/20 19 5:32 Venous) CDT PM CDT Clemente Aiken M.D. LAB BLOOD ADD-ON Performing Organization Address City/State/ZIP Code Phon e Number [facility] LABORATORIES - [address] [place], [place] [address] [facility] (ABNORMAL) APTT (Activated Partial Thromboplastin Time) (04/04/2019 5:25 PM CDT) Analysis Performed At Patho logist Time Signature Activated 44 (H) 25 - 37 04/04/2019 [facility] Partial sec 5:57 PM CDT LABORATORIES - Thrombopl [facility], [facility] Specimen Anatomical Collection Method Collection Time Receive d Time (Source) Location / / Volume Laterality Blood (Blood, 04/04/2019 5:25 PM 05/08/20 19 5:32 Venous) CDT PM CDT Clemente Aiken M.D. LAB BLOOD ADD-ON Performing Organization Address City/[facility] Code Phon e Number [facility] LABORATORIES - [address] [place] [address] [address] [facility] Magnesium (04/04/2019 5:25 PM CDT) P athologist Signature Magnesium, S 2.3 1.7 - 2.3 04/04/2019 [facility] mg/dL 6:21 PM CDT [facility]ATOR[facility] - [facility] Specimen Anatomical Collection Method Collection Time Receive d Time (Source) Location / / Volume Laterality Blood (Blood, 04/04/2019 5:25 PM 04/04/20 19 5:40 Venous) CDT PM CDT Clemente Aiken M.D. LAB BLOOD ADD-ON Performing Organization Address City/[facility] Phon e Number [facility] LABORATORIES - [address] [place] [address] [facility] Phosphorus Inorganic (04/04/2019 5:25 PM CDT) Analysis Performed At Patho logist Time Signature Phosphorus 3.8 2.5 - 4.5 04/04/2019 [facility] (Inorganic), S mg/dL 6:21 PM CDT [facility] - [facility] Specimen Anatomical Collection Method Collection Time Receive d Time (Source) Location / / Volume Laterality Blood (Blood, 04/04/2019 5:25 PM 04/04/20 19 5:40 Venous) CDT PM CDT Clemente Aiken M.D. LAB BLOOD ADD-ON Performing Organization Address City/[facility] Code Phon e Number [facility] LABORATORIES - [address] [place] [address] [address] [facility] (ABNORMAL) Comprehensive Metabolic Panel (04/04/2019 5:25 PM CDT) Patholo gist Method Time Signature Potassium, S 3.5 (L) 3.6 - 5.2 04/04/2019 [facility] mmol/L 6:21 PM CDT LABORATORIES [facility] Sodium, S 141 135 - 145 04/04/2019 [facility] mmol/L 6:21 PM CDT [facility] - [facility] Chloride, S 105 98 - 107 04/04/2019 [facility] mmol/L 6:21 CDT LAB[facility]IES [facility] Bicarbonate, S 23 22 - 29 04/04/2019 [facility] mmol/L 6:21 CDT LAB[facility]ATORIES [facility] Anion Gap 13 7 - 15 04/04/2019 [facility] 6:21 CDT LAB[facility]ATORIES [facility] BUN (Blood 20 6 - 21 04/04/2019 [facility] Urea mg/dL 6:21 CDT LABORATORIES - Nitrogen), S [facility] Creatinine, S 0.90 0.59 - 04/04/2019 [facility] 1.04 mg/dL 6:21 CDT LAB[facility]ATORIES [facility] eGFR-Non 72 >=60 04/04/2019 [facility] Black/ mL/min/BSA 6:21 CDT LABORATORIES [facility] Comment: ----ADDITIONAL INFORMATION---- Estimated GFR calculated using the 2009 CKD_EPI creatinine equation. eGFR-Black/ 83 >=60 mL/min/BSA 04/04/2019 6:21 [facility] CDT LABORATORIES [facility] Comment: ----ADDITIONAL INFORMATION---- Estimated GFR calculated using the 2009 CKD_EPI creatinine equation. Calcium, Total, S 8.6 8.6 - 10.0 04/04/2019 6:21 [facility] mg/dL CDT LAB[facility]IES [facility] Glucose, S 96 70 - 140 04/04/2019 6:21 [facility] mg/dL CDT LAB[facility]ATORIES [facility] Protein, Total, S 6.2 (L) 6.3 - 7.9 04/04/2019 6:21 [facility] g/dL CDT [facility] Albumin, S 4.1 3.5 - 5.0 04/04/2019 6:21 [facility] g/dL CDT LABORATORIES [facility] Aspartate 21 8 - 43 U/L 04/04/2019 6:21 [facility] Aminotransferase (AST), CDT LABORA TORIES - S [facility] Alkaline Phosphatase, S 73 35 - 104 U/L 04/04/2019 6: 21 [facility] CDT LABORATORIES [facility] Alanine Aminotransferase 14 7 - 45 U/L 04/04/2019 6:2 1 [facility] (ALT), S CDT LABORATORIES [facility] Bilirubin, Total, S 0.2 <=1.2 mg/dL 04/04/2019 6:21 [facility] PM CDT [facility]ORATORIES - [facility] Specimen Anatomical Collection Method Collection Time Receive d Time (Source) Location / / Volume Laterality Blood (Blood, 04/04/2019 5:25 PM 04/04/20 5:40 Venous) CDT PM CDT Clemente Aiken M.D. LAB BLOOD ADD-ON Performing Organization Address City/State/ZIP Code Phon e Number [facility] LABORATORIES - [address] [place], [place] [address] [facility] documented in this encounter Visit Diagnoses Diagnosis [...] mL (COMPLETED) 1933 (Given - Provider: Kiara Crury R.N., CRN) 1-100 mL, intravenous, Once, On [...] Kiara Curry R.N., CRN - Comment: LOT# [id number]) 1-200 mL, intravenous, Once in imaging, contrast, [...]
--- OUTSIDE RECORDS SUMMARY | 2022-07-06 15:41 | XMS_ITS | Encounter Summary ---
:1965 Author Organization [facility] Address [address] [place] [address] Care Team Providers Name Role Phone Unavailable Primary Care Provider Unavailable Reason for Referral Outpatient (Routine) - Closed Specialty Diagnoses / Procedures Referred By Contact Refer red To Contact Neurology Robert Diehl M. D. [facility] [address] [place] [address] [phone] Referral ID Status Reason Start Date Expiration Date Visits Requ ested Visits Authorized [id number] Closed 06/28/2019 06/27/2020 1 1 Reason for Visit Outpatient (Routine) - Closed Specialty Diagnoses / Procedures Referred By Contact Refer red To Contact Neurology Diagnoses Stroke (HCC) Thrombosis Arterial (HCC) Aneurysm Cerebral Unruptured (HCC) Fernie Soriano M.D. [facility] [address] [place] [phone] Referral ID Status Reason Start Date Expiration Date Visits Requ ested Visits Authorized [id number] Closed 03/31/2019 03/30/2020 1 1 Encounter Details Date Type Department Care Team Description 06/28/2019 Office Visit Department of Robert Diehl Fatigue ( Primary Dx); Neurology in [place] Stroke (HCC); [place], [place] 200 [facility] Thrombosis Arterial (HCC); [address] [place] [address] Aneurysm Cerebral Unruptured (HCC) [place] [phone] Social History Tobacco Use Types Packs/Day Years [...] you attend gnosticist or Patient refused 2021 taoist services? Do [...] Fatigue PUL Home Overnight Oximetry 2. Stroke ([facility]) Neurology - Cerebrovascular consult (clinic) MR Neck Angiogram without and with IV Contrast PM Device interrogation (clinic) 3. Thrombosis Arterial ([facility]) Neurology - Cerebrovascular consult (clinic) MR Neck Angiogram without and with IV Contrast PM Device interrogation (clinic) 4. Aneurysm Cerebral Unruptured ([facility]) Neurology - Cerebrovascular consult (clinic) documented in this encounter Plan of Treatment Scheduled Orders Name Type Priority Associated Diagnoses [facility] PFT Routine Fatigue Expected: 06/28/2019 Oximetry (Approximate), Expires: 06/28/2022 Scheduled Referrals Name Type Priority Associated Diagnoses Order S [facility] Neurology office Outpatient Referral Routine Expe [...]
--- OUTSIDE RECORDS SUMMARY | 2022-07-06 15:41 | XMS_ITS | Encounter Summary ---
:1965 Author Organization [facility] Address [address] [place] [address] Care Team Providers Name Role Phone Unavailable Primary Care Provider Unavailable Reason for Visit Reason Onset Date Comments [facility] Med Request 03/30/2019 Encounter Details Date Type Department Care Team Description 03/30/2019 Clinical Communication [facility] Med Request Nicotine Kenna Bose M.S., [place], [facility] in [place], [place] [address] [place] [address] Social History Tobacco Use Types Packs/Day Years [...] attend latter day or Patient refused 2021 latter day services? [...] CDT Please send the following to the [facility] 1) 14 mg patch 2) [...]
--- OUTSIDE RECORDS SUMMARY | 2022-07-06 15:42 | XMS_ITS | Encounter Summary ---
:1965 Author Organization [place] Address [address] [place] [address]. [place] [address] Care Team Providers Name Role Phone [facility] Primary Care Provide r Encounter Details Date Type Department Care Team Description 05/20/2021 Records - [facility], [facility] [address] [facility] [address] [place] [address] Social History Tobacco Use Types Packs/Day Years [...] athologist Signature Creatinine 0.60 0.50 - 1.50 [place] mg/dL [facility]PITAL Specimen (Source) Anatomical Location Collection Method / Collectio n Time Received Time / Laterality Volume Blood specimen 04/20/2021 (specimen) Narrative 04/20/2021 [facility] LAB EXTERNAL RESULT Historical Provider LAB - BLOOD ORDERABLES Performing Organization Address City/State/ZIP Code Phon e Number [facility] [address] [place] [address] documented in this encounter Visit Diagnoses Not on filedocumented in this encounter Care Teams Ship Rigger Relationship Specialty Start Date End Date [facility] PCP - General 06/03/171999 [place] [address] documented as of this encounter
--- OUTSIDE RECORDS SUMMARY | 2022-07-06 15:42 | XMS_ITS | Encounter Summary ---
:1965 Author Organization [facility] Address [address] [place] [address] Care Team Providers Name Role Phone Unavailable [...] you attend voodoo or Patient refused 2021 pentecostal services? Do [...] encounter Results [place] Esophagram (08/24/2007 10:57 AM [facility]) Anatomical Region Laterality Modality Gastro Intestinal, Abdominal RST LOS N/A Rad iographic Imaging Specimen (Source) Anatomical Collection Method Collection Time Re ceived Time Location / / Volume Laterality 08/24/2007 10:57 AM MST Narrative 08/24/2007 11:41 AM [facility] Indications: ?STATUS POST GASTRIC BYPASS ORIGINAL REPORT [...]
--- OUTSIDE RECORDS SUMMARY | 2022-07-06 15:42 | XMS_ITS | Encounter Summary ---
:1965 Author Organization [place] Address [facility] [place] [address] Care Team Providers Name Role Phone Clinic, [facility] Primary Care Provide r Mor Bautista MD Unavailable Reason for Visit Reason Onset Date Comments Appointment 05/12/2021 Encounter Details Date Type Department Care Team Description 05/12/2021 [facility] Infectious Disease None Appointment Clinic [place] [phone] Social History Tobacco Use Types Packs/Day Years Used Date Current Every Day Smoker 0.5 Smokeless Tobacco: Never Used Alcohol Use Standard Drinks/Week Comments No 0 (1 standard drink = 0.6 oz pure alcoho l) Sex Assigned at Date Recorded Not on file documented as of this encounter Miscellaneous Notes Telephone Encounter - Tiffanie Georges - 05/12/2021 12:17 PM CDT [facility] Call Center Phone Message May a detailed message be left on voicemail: yes Reason for Call: Other: Pt requesting call back, pt stated she is returning a call to the clinic. Field Investigator did not see any notes in the pt's chart to refer to. Pt stated she is being referred from [facility] for a staph infection in her shoulder, [...] on filedocumented in this encounter Care Teams Parachute Mender Relationship Specialty Start Date End Date Clinic, [facility] PCP - General 06/03/[address] [address] Mor Bautista MD Assigned Infectious Disease 06/12/21 [address] Provider [facility] [address] [place] [address] documented as of this encounter
--- OUTSIDE RECORDS SUMMARY | 2022-07-06 15:42 | XMS_ITS | Encounter Summary ---
:1965 Author Organization [facility] Address [address] [place] [address] Care Team Providers Name Role Phone Unavailable [...] you attend zoroastrianism or Patient refused 2021 druze services? Do [...]
--- OUTSIDE RECORDS SUMMARY | 2022-07-06 15:42 | XMS_ITS | Clinical Summary ---
:1965 Author Organization [place] Address [facility] [place] [address] Care Team Providers Name Role Phone Clinic, [facility] Primary Care Provide r Mor Bautista [...] breath / dyspnea or wheezing naloxone (NARCAN) [place] 4 mg into 0 Active nasal spray [...] (Takes 2 x 5000 unit tablet = 14905 unit dose) Esomeprazole Magnesium Take 40 mg [...] CDT Respiratory Rate 16 10/14/2017 4:28 PM CERTIFIED PROFESSIONAL CODER Oxygen Saturation 98% 10/14/2017 4:28 PM CERTIFIED PROFESSIONAL CODER Inhaled Oxygen Concentration - - Weight 74.8 [...] this topic Medical Devices Implanted Type Area Sealant Mixer Device Shelf Model / Identifier Expiration Serial / Date Lot Device Tvt Obturator Laser [id number] Other N/A: [employer] 04/27/2018 [id number] / Implanted: Qty: 1 on 10/14/2017 by Rain Herring MD at [facility] / [id number] Insurance Payer Benefit Plan / Subscriber ID Effective Dates Phone Addre ss Type Group MEDICARE MEDICARE [id number] 2012-Ariana [phone] ATTN [facility] Medicare nt 0 [address] [place] [address] MEDICA MEDICA ACCESS [id number] 2016-Dirk [phone] [address] [address] HMO ABILITY MA t [address] [place] [address] Care Teams Heat Treater Head Relationship Specialty Start Date End Date Clinic, [facility] PCP - General 06/03/[address] [address] Mor Bautista MD Assigned Infectious Disease 06/12/21 [address] Provider [address] [place] [address]
--- OUTSIDE RECORDS SUMMARY | 2022-07-06 15:42 | XMS_ITS | Encounter Summary ---
:1965 Author Organization [facility] Address [address] [place] [address] Care Team Providers Name Role Phone Unavailable [...] you attend taoist or Patient refused 2021 amish services? Do [...]
--- OUTSIDE RECORDS SUMMARY | 2022-07-06 15:42 | XMS_ITS | Encounter Summary ---
:1965 Author Organization [facility] Address [address] [place] [address] Care Team Providers Name Role Phone Unavailable Primary Care Provider Unavailable Encounter Details Date Type Department Care Team Description 01/15/2010 - Hospital Encounter HX ARZ NO MAPPING Leonides Du, 01/16/2010 [address] [place] [address] Social History Tobacco Use Types [...] you attend confucianism or Patient refused 2021 christianity services? Do [...] or slept in a long-term (including now)? Sex Assigned at Date Recorded [...] encounter Results [place] Esophagram (01/15/2010 9:36 PM [facility]) Anatomical Region Laterality Modality Gastro Intestinal, Abdominal RST LOS N/A Rad iographic Imaging Specimen (Source) Anatomical Collection Method Collection Time Re ceived Time Location / / Volume Laterality 01/15/2010 9:36 PM [facility] Narrative 01/15/2010 9:43 PM [facility] Indications: ?STATUS POST GASTRIC BYPASS ORIGINAL REPORT [...]
--- OUTSIDE RECORDS SUMMARY | 2022-07-06 15:42 | XMS_ITS | Encounter Summary ---
:1965 Author Organization [facility] Address [address] [place] [address] Care Team Providers Name Role Phone Unavailable [...] you attend gnosticist or Patient refused 2021 yazdanism services? Do [...]
--- OUTSIDE RECORDS SUMMARY | 2022-07-06 15:42 | XMS_ITS | Encounter Summary ---
:1965 Author Organization [facility] Address [address] [place] [address] Care Team Providers Name Role Phone Unavailable [...] you attend hinduism or Patient refused 2021 orthodoxy services? Do [...] slept in a senior living (including now)? Sex Assigned at Date Recorded [...]
--- OUTSIDE RECORDS SUMMARY | 2022-07-06 15:42 | XMS_ITS | Encounter Summary ---
:1965 Author Organization [facility] Address [address] [place] [address] Care Team Providers Name Role [...] you attend catholic or Patient refused 2021 cheondoism services? Do [...] 9:46 PM MST Indications: ?CP PATHWAY CALL [phone] IF POS ?? tech: pt. not and [...] from the original. Indications: CP PATHWAY CALL [phone] IF PO S tech: pt. not and [...] Lead with rhythm strip (02/03/2009 12:00 AM [facility]) Specimen (Source) Anatomical Location Collection Method / Collectio n Time Received Time / Laterality Volume 02/03/2009 Historical Provider ECG ORDERABLES Performing Organization Address City/State/ZIP Code Phon e Number HX [place] CONVERSION documented in this encounter Visit Diagnoses Not on filedocumented in this encounter
--- OUTSIDE RECORDS SUMMARY | 2022-07-06 15:42 | XMS_ITS | Encounter Summary ---
:1965 Author Organization [facility] Address [address] [place] [address] Care Team Providers Name Role Phone Unavailable [...] you attend anabaptism or Patient refused 2021 confucianism services? Do [...] and Lateral 2 Views (08/18/2008 9:44 PM [facility]) Anatomical Region Laterality Modality Chest, Thoracic RST LOS N/A Radiographic Xi ging Specimen (Source) Anatomical Collection Method Collection Time Re ceived Time Location / / Volume Laterality 08/18/2008 9:44 PM MST Narrative 08/18/2008 9:57 PM [facility] Indications: ?PNE PATHWAY CALL [phone] IF POS - pt unable to remove [...] from the original. Indications: PNE PATHWAY CALL [phone] IF P OS - pt unable to [...]
--- OUTSIDE RECORDS SUMMARY | 2022-07-06 15:42 | XMS_ITS | Encounter Summary ---
:1965 Author Organization [place] Address [facility] [place] [address] Care Team Providers Name Role Phone Clinic, [facility] Primary Care Provide r Reason for Visit Reason Comments Consult pt here with her neighbor Arin calderon, Encounter Details Date Type Department Care Team Description 05/14/2021 Office Visit - [facility] Mor Bautista Acute he matogenous [facility] Sheldon Patel MD osteomyelitis of right [address] [place] [address] [address] (H) [address] [facility] [phone] [place], [place] [phone] [id number] Social History Tobacco Use Types Packs/Day Years [...] for consult:MRSJoe shoulder infection HISTORY: Hospital Course Angei Mosquera is a 55 y.o. female with [...] disease history: Reviewed in the notes from [place] Medications: Reviewed prior to admission meds as [...] ?? GRAM STAIN? Gram stain performed by [place], [place] ?? Specimen Collected on Tissue - [...] this duration if possible. My cell is [phone]. I wrote for 90 days and warned pt about sunburn risk. She has hx of skin cancer. 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
--- OUTSIDE RECORDS SUMMARY | 2022-07-06 15:42 | XMS_ITS | Encounter Summary ---
:1965 Author Organization [facility] Address [address] [place] [address] Care Team Providers Name Role Phone Unavailable Primary Care Provider Unavailable Encounter Details Date Type Department Care Team Description 09/25/2015 Hospital Encounter HX [facility] Hernesto Watson M.D. [address] [facility], [address] [place] [address] (Wo rk) Social History Tobacco [...] you attend jewish or Patient refused 2021 scientology services? Do [...] KUNZ LPN On: 09/25/2015 03:38 PM Source: [facility] POWERCHART Document Id: [id number] documented in this encounter Miscellaneous Notes Telephone Encounter - Conversion, Historical Provider Ser - 05/11/2017 11:32 AM CDT *Phone Message/Dr. Watson Document Contains Addenda Addendum by IVY BENITEZ on May 11, 2017 13:27:22 CDT From: IVY BENITEZ ( Funk Core Analysis Operator) To: Physical Medicine and Rehabilitation Staff; Sent: 05/11/2017 13:27:22 CDT Subject: RE: *Phone Message/Dr. Watson Left message on patients phone regarding this appointment. Addendum by NIKKIE GANDHI LPN on May 11, 2017 12:57:21 CDT From: NIKKIE GANDHI LPN ( Physical Medicine and Rehabilitation Staff) To: Funk Core Analysis Operator; Sent: 05/11/2017 12:57:21 CDT Subject: RE: *Phone Message/Dr. Watson 27 noon, please reschedule. From: IVY BENITEZ ( Funk Core Analysis Operator) To: Physical Medicine and Rehabilitation Staff; Sent: [...] today, she would like it rescheduled [facility] since Dr. Romero wanted her to have it done. Please call her back at [phone] to advise. Advice/Action: Source used: ( ) [...] back cell phone number ( ) Source: [facility] Document Id: [id number] Miscellaneous - Nikkie Gandhi, LBrittonPBrittonN. - 05/04/2017 4:19 PM CDT *General Message Document Contains Addenda Addendum by ISIDRO HI on May 04, 2017 16:42:57 CDT From: ISIDRO HI ( Funk Core Analysis Operator) To: Physical Medicine and Rehabilitation Staff; Sent: 05/04/2017 16:42:57 CDT Subject: RE: *General Message Called patient and scheduled as requested. From: NIKKIE GANDHI LPN ( Physical Medicine and Rehabilitation Staff) To: Funk Core Analysis Operator; Sent: 05/04/2017 16:19:56 CDT Subject: *General Message Please call patient to schedule for bilateral upper extremity EMG. 05/11/17 at 11:45 am. 1 hour Source: [employer] Document Id: [id number] Electronically signed by Avinash [facility] Retail Shift Leader [id number] at 06/01/2017 1:18 AM CDT documented in this encounter Plan of Treatment Not on filedocumented as of this encounter Visit Diagnoses Not on filedocumented in this encounter
--- OUTSIDE RECORDS SUMMARY | 2022-07-06 15:42 | XMS_ITS | Encounter Summary ---
:1965 Author Organization [facility] Address [address] [place] [address] Care Team Providers Name Role Phone Unavailable [...] attend jehovah's witness or Patient refused 2021 adventism services? Do [...] Address City/State/ZIP Code Phon e Number HX [place] CONVERSION documented in this encounter Visit Diagnoses Not on filedocumented in this encounter
--- OUTSIDE RECORDS SUMMARY | 2022-07-06 15:42 | XMS_ITS | Encounter Summary ---
:1965 Author Organization [facility] Address [address] [place] [address] Care Team Providers Name Role Phone Unavailable [...] you attend religion or Patient refused 2021 temple services? Do [...]
--- OUTSIDE RECORDS SUMMARY | 2022-07-06 15:42 | XMS_ITS | Encounter Summary ---
:1965 Author Organization [facility] Address [address] [place] [address] Care Team Providers Name Role Phone Unavailable Primary Care Provider Unavailable Encounter Details Date Type Department Care Team Description 09/01/2007 - Hospital Encounter HX ARZ NO MAPPING Provider, Jadny hough 09/02/2007 Social History Tobacco Use Types [...] you attend anabaptist or Patient refused 2021 faith services? Do [...] Pelvis with IV Contrast (09/02/2007 1:17 AM [facility]) Anatomical Region Laterality Modality Pelvis, Abdominal RST LOS N/A Computed Tomog chato Specimen (Source) Anatomical Collection Method Collection Time Re ceived Time Location / / Volume Laterality 09/02/2007 1:17 AM [facility] Addenda Addendum by Elmo Cabrera M.D. on 03/2007 11:40 PM [facility] APPENDED REPORT - 02-Sep-2007 01 :40:00 CT Abdomen w/ Contrast CT Pelvis W Contrast Appended to link all pertinent exams to report. ? Electronically signed by: ?? Mamta Cabrera M.D. 02-Sep-2007 01:40 Narrative 09/02/2007 1:40 AM [facility] Indications: ?R/O ABCESS, POSTOP ORIGINAL REPORT [...] Abdomen with IV Contrast (09/02/2007 1:17 AM [facility]) Anatomical Region Laterality Modality Abdomen, Abdominal RST LOS N/A Computed [place] graphy Specimen (Source) Anatomical Collection Method Collection Time Re ceived Time Location / / Volume Laterality 09/02/2007 1:17 AM [facility] Addenda Addendum by Elmo Cabrera M.D. on 03/2007 11:40 PM [facility] APPENDED REPORT - 02-Sep-2007 01 :40:00 CT Abdomen w/ Contrast CT Pelvis W Contrast Appended to link all pertinent exams to report. ? Electronically signed by: ?? Mamta Cabrera M.D. 02-Sep-2007 01:40 Narrative 09/02/2007 1:40 AM [facility] Indications: ?R/O ABCESS, POSTOP ORIGINAL REPORT [...]
--- OUTSIDE RECORDS SUMMARY | 2022-07-06 15:42 | XMS_ITS | Encounter Summary ---
:1965 Author Organization [facility] Address [address] [place] [address] Care Team Providers Name Role Phone Elsewhere, Pcp Primary Care Provider Unavailable Reason for Referral Outpatient (Routine) - Closed Specialty Diagnoses / Procedures Referred By Contact Refer red To Contact Otorhinolaryngology Diagnoses Sinus Nose Disorder Sinusitis Chronic Chris Mckeon [place] [facility] M.D. [address] [place] [address] Referral ID Status Reason Start Date Expiration Date Visits Requ ested Visits Authorized [id number] Closed 01/10/2019 01/10/2020 1 1 ER DEVELOPMENT MANAGER Encounter Details Date Type Department Care Team Description 01/10/2019 [facility] Mike, Sinu s Nose Disorder (Primary Dx); AND CLINICS Chris Celaya M.D. Sinusitis Chronic [address] [facility] [address] [place] [address] [place], [place] [phone] Social History Tobacco Use Types Packs/Day Years [...] you attend evangelical or Patient refused 2021 anabaptism services? Do [...] COVID19 Pending 01/31/2021 01/31/2021 01/31/2021 10:53 PM CAREER DEVELOPMENT MANAGER COVID19 Pending 02/10/2021 02/11/2021 02/11/2021 1:09 AM CDT COVID19 Pending 12/29/2021 12/29/2021 12/29/2021 4:20 PM CAREER DEVELOPMENT MANAGER COVID19 Pending 02/25/2022 02/25/2022 02/25/2022 3:59 PM CDT COVID19 Pending 05/17/2022 05/17/2022 05/17/2022 2:34 PM CDT COVID19 Pending 06/15/2022 06/15/2022 06/15/2022 8:24 PM CDT documented as of this encounter Care Teams Technician Semiconductor Development Relationship Specialty Start Date End Date Elsewhere, Pcp PCP - General Internal Medicine 12/25/21 documented as of this encounter
--- OUTSIDE RECORDS SUMMARY | 2022-07-06 15:42 | XMS_ITS | Encounter Summary ---
:1965 Author Organization [facility] Address [address] [place] [address] Care Team Providers Name Role Phone Unavailable [...] you attend samaritan or Patient refused 2021 worship services? Do [...]
--- OUTSIDE RECORDS SUMMARY | 2022-07-06 15:42 | XMS_ITS | Encounter Summary ---
:1965 Author Organization [place] Address [facility] [place] [address] Care Team Providers Name Role Phone [facility] r Reason for Visit Reason Comments Referral Other ID Encounter Details Date Type Department Care Team Description 05/11/2021 Communication - [facility] Provider, Jameel howard; [facility] Special[facility] Patient Access [address] [place] [phone] Social History Tobacco Use Types Packs/Day Years Used Date Current Every Day Smoker 0.5 Smokeless Tobacco: Never Used Alcohol Use Standard Drinks/Week Comments No 0 (1 standard drink = 0.6 oz pure alcoho l) Sex Assigned at Date Recorded Not on file documented as of this encounter Miscellaneous Notes Telephone Encounter - Historical Provider - 05/13/2021 11:10 AM CDT Date: 05/14/2021 Status: [facility] Time: 3:20 PM Length: 40 Visit Type: CONSULT [[id number]] Copay: $0.00 Provider: Mor Bautista MD Telephone [...] ONLY received??? 05/11/2021 12:05pm inside ID consult [facility], , Referring: Dr David Cohn, DX: status post shoulder replacement, left Order comments: Asking for HALI, this week. documented in this encounter Plan of Treatment Not on filedocumented as of this encounter Visit Diagnoses Not on filedocumented in this encounter Care Teams Laborer/Grade Check Relationship Specialty Start Date End Date Clinic, [facility] PCP - General 06/03/171999 [place] [address] documented as of this encounter
--- OUTSIDE RECORDS SUMMARY | 2022-07-06 15:42 | XMS_ITS | Encounter Summary ---
:1965 Author Organization [place] Address [address] [place] [address] Care Team Providers Name Role Phone [facility], [facility] Primary Care Provide r Encounter Details Date Type Department Care Team Description [facility]/14[facility]20[facility] ProviderAlea Social History Tobacco Use [...] on filedocumented in this encounter Care Teams Factory Assembler Relationship Specialty Start Date End Date [facility] PCP - General 06/03/171999 [place] [address] documented as of this encounter
--- OUTSIDE RECORDS SUMMARY | 2022-07-06 15:42 | XMS_ITS | Encounter Summary ---
:1965 Author Organization [facility] Address [address] [place] [address] Care Team Providers Name Role Phone Unavailable Primary Care Provider Unavailable Encounter Details Date Type Department Care Team Description 06/21/2017 Hospital Encounter HX [facility]TR Hernesto Watson M.D. [address] [facility], [address] [place] [address] (Wo rk) Social History Tobacco Use Types [...] you attend lutheran or Patient refused 2021 spiritism services? Do [...] - 06/21/2017 12:00 AM CDT 1EMG EMG INDEPENDENT TRADER Sergio Watson MD ([phone]) REFERRED BY Dr. Romero. REFERRED FOR Ms. [...] WATSON MD On: 06/21/2017 03:10 PM Source: [facility] MHSDOLBEYNONRADSYS Document Id: [id number] documented in this encounter Miscellaneous Notes Miscellaneous - Sergio Watson M.D. - 06/21/2017 2:19 PM CDT Ambulatory Discharge Medication List [address] [id number] Visit Information Name: NAPOLEON, KAYLIN J [facility] Number: [id number] Current Date: 06/21/2017 14:19:38 Attending [...] MD Signed On:21-JUN-2017 14:19:21 Additional Information: Source: [facility] POWERCHART Document Id: [id number] Miscellaneous - Sergio Watson M.D. - 06/21/2017 2:19 PM CDT Ambulatory Patient Summary [address] [id number] Visit Information Name: KAYLIN MOSQUERA [facility] Number: [id number] Current Date: 06/21/2017 14:19:38 Physicians [...] if you dont have one. Go to [email or web address] and click on Create Your Account. Then, follow the directions to complete the online form. Youll be asked for your [facility] number which you can find at the top of this document. Your Goals/Additional instructions: Source: [facility] POWERCHART Document Id: [id number] Miscellaneous - Ayla Mcmanus, L.P.N. - 06/21/2017 1:25 PM CDT Adult Contact Finger Assembler Intake/History Adult Contact Finger Assembler Intake/History Entered On: 06/21/2017 13:26 CDT Performed On: 06/21/2017 13:25 CDT by MARIETTA, AYLA J VICE PRESIDENT FINANCIAL Intake Systolic Blood Pressure : 124 mmHg Diastolic Blood Pressure : 62 mmHg NIBP Mean : 83 mmHg BP Location : Left upper extremity Blood Pressure Cuff Size : Regular Actual Weight : 70.55 kg(Converted to: 155 lb 9 oz) Dosing Weight Clinic : 70.55 kg AYLA MCMANUS LPN - 06/21/2017 13:25 CDT General Info Information Given By : Patient Languages : Albanian Is Patient Female and 13-50 no hysterectomy [...] MCMANUS LPN - 06/21/2017 13:25 CDT Source: [email or web address] POWERCHART Document Id: [id number] CDT!24 documented in this encounter Plan of Treatment Not on filedocumented as of this encounter Visit Diagnoses Not on filedocumented in this encounter
--- OUTSIDE RECORDS SUMMARY | 2022-07-06 15:42 | XMS_ITS | Encounter Summary ---
:1965 Author Organization [facility] Address [address] [place] [address] Care Team Providers Name Role Phone Unavailable [...] you attend hinduism or Patient refused 2021 church services? Do [...] 4:56 PM MST Narrative 07/06/2008 5:07 PM [facility] Indications: ?PNE PATHWAY CALL [phone] IF POS. ??TECHNOTE: NIPPLE PIERCINGS LUNG ARTIFACT. [...] from the original. Indications: PNE PATHWAY CALL [phone] IF P OS. TECHNOTE: NIPPLE PIERCINGS LUNG [...]
--- OUTSIDE RECORDS SUMMARY | 2022-07-06 15:42 | XMS_ITS | Encounter Summary ---
:1965 Author Organization [place] Address [facility] [place] [address] Care Team Providers Name Role Phone [facility] Primary Care Provide r Mor Bautista MD [...] on filedocumented in this encounter Care Teams Nuclear Scientist Relationship Specialty Start Date End Date [facility] PCP - General 06/03/17 [facility] [address] [place] [address] Mor Bautista MD Assigned Infectious Disease 06/12/21 [address] Provider [address] [place] [address] documented as of this encounter
--- OUTSIDE RECORDS SUMMARY | 2022-07-06 15:42 | XMS_ITS | Encounter Summary ---
:1965 Author Organization [facility] Address [address] [place] [address] Care Team Providers Name Role Phone Unavailable [...] you attend latter-day or Patient refused 2021 adventism services? Do [...] 2:55 PM MST Indications: ?CP PATHWAY CALL [phone] IF POS ORIGINAL REPORT - 24-Jul-2009 14:55:00 [...] from the original. Indications: CP PATHWAY CALL [phone] IF PO S ORIGINAL REPORT - 24-Jul-2009 [...]
--- OUTSIDE RECORDS SUMMARY | 2022-07-06 15:42 | XMS_ITS | Encounter Summary ---
:1965 Author Organization [facility] Address [address] [place] [address] Care Team Providers Name Role Phone Unavailable [...] you attend catholic or Patient refused 2021 judaism services? Do [...] or slept in a half-way (including now)? Sex Assigned at Date Recorded [...] 2:53 PM MST Narrative 08/16/2008 3:27 PM [facility] Indications: ?CHEST PAIN tech: Pt stated nipple [...] Lead with rhythm strip (08/16/2008 12:00 AM [facility]) Specimen (Source) Anatomical Location Collection Method / Collectio n Time Received Time / Laterality Volume 08/16/2008 Historical Provider ECG ORDERABLES Performing Organization Address City/State/ZIP Code Phon e Number HX [place] CONVERSION documented in this encounter Visit Diagnoses Not on filedocumented in this encounter
--- OUTSIDE RECORDS SUMMARY | 2022-07-06 15:43 | XMS_ITS | Encounter Summary ---
:1965 Author Organization [place] Address [address] [place] [address] Care Team Providers Name Role Phone [facility], [facility] Primary Care Provide r Encounter Details Date Type Department Care Team Description 04/10/2021 Records - [facility] CONVERSION ProviderAlea Social History Tobacco Use [...] on filedocumented in this encounter Care Teams Merchant Mariner Relationship Specialty Start Date End Date [facility] PCP - General 06/03/171999 [place] [address] documented as of this encounter
--- OUTSIDE RECORDS SUMMARY | 2022-07-06 15:43 | XMS_ITS | Encounter Summary ---
:1965 Author Organization [place] Address [address] [place] [address] Care Team Providers Name Role Phone Clinic, [facility] Primary Care Provide r Encounter Details Date Type Department Care Team Description 03/20/2021 Records - [facility], [facility] [address] [place] [address] [phone] Social History Tobacco Use Types Packs/Day Years [...] Bacterial Culture Routine (03/20/2021 6:00 AM CDT) [facility] Method Time Signature Culture STAPHYLOCOCCUS 03/27/2021 [facility] EPIDERMIDIS (A) 8:01 AM CDT [facility] Comment: Staphylococcus epidermidis Isolated from broth only Gram Stain 4+ Polymorphonuclear 03/27/2021 8:01 AM [facility]ALTH Result leukocytes [facility] Gram Stain No organisms seen 03/27/2021 8:01 AM [facility] Result CDT [facility] Specimen Anatomical Collection Method Collection [...] MICRO GENERAL ORDERABL ES Performing Organization Address City/[facility] [place] [address] [address] [facility] Anaerobic Bacterial Culture Routine (03/20/2021 6:00 AM CDT) [facility] Method Time Signature Culture No anaerobic 03/23/2021 HEALTH organisms 7:18 AM CDT [facility] Specimen Anatomical Collection Method Collection Time Receive d Time (Source) Location / / Volume Laterality Body fluid Non-blood 03/20/2021 6:00 AM 1 sample Collection / CDT 12:05 PM CDT (specimen) Unknown [facility] - MICRO GENERAL ORDERABL ES Performing Organization Address City/[facility]/[place] [address] [address] [facility] (ABNORMAL) Cell count with differential fluid (03/20/2021 6:00 AM CDT) [facility] Method Time Signature Color Red 03/20/2021 [facility]ALTH 2:04 PM CDT [facility] Clarity Turbid 03/20/2021 [facility]ALTH 2:04 PM CDT [facility] Total Nucleated 42,864 (H) 0 - 99 03/20/2021 [facility] Cells /uL 2:04 PM CDT [facility] RBC, Fluid >50,000 <50,000 03/20/2021 [facility]ALTH (A) /ul 2:04 PM CDT [facility] % Neutrophils 91 (H) <=25 % 03/20/2021 [facility] 2:04 PM CDT [facility] % Lymphocytes 8 <=78 % 03/20/2021 [facility] 2:04 PM CDT [facility] Monocyte % 1 <=71 % 03/20/2021 [facility] 2:04 PM CDT [facility] Macrophage % 03/20/2021 [facility] 2:04 PM CDT [facility] Mesothelials, 03/20/2021 [facility] Fluid 2:04 PM CDT [facility] % Eosinophils 03/20/2021 [facility] 2:04 PM CDT [facility] % Other Cells 03/20/2021 [facility] 2:04 PM CDT [facility] Specimen Anatomical Collection Method Collection Time Receive d Time (Source) Location / / Volume Laterality Body fluid BODY FLUID SAMPLE Non-blood 03/20/2021 6:00 AM 02/27 sample / Unknown Collection / CDT 12:05 PM CDT (specimen) Unknown Narrative [facility] - 03/20/2021 2:04 PM CDT Large clot present; count may be inaccur ate. [facility] - BODY FLUIDS ORDERABLES Performing Organization Address City/State/ZIP Code [place] [address] [place] [facility] [address] [place] [phone] [place] [address] [place] [address], [facility] [phone] documented in this encounter Visit Diagnoses Not on filedocumented in this encounter Care Teams Shipping Support Clerk Relationship Specialty Start Date End Date Clinic, [facility] PCP - General 06/03/171999 [place] [address] documented as of this encounter
--- OUTSIDE RECORDS SUMMARY | 2022-07-06 15:43 | XMS_ITS | Encounter Summary ---
:1965 Author Organization [place] Address [address] [place] [address] Care Team Providers Name Role Phone [facility] Primary Care Provide r Encounter Details Date [...] on filedocumented in this encounter Care Teams Senior Advisor Relationship Specialty Start Date End Date [facility] PCP - General 06/03/171999 [place] [address] documented as of this encounter
--- OUTSIDE RECORDS SUMMARY | 2022-07-06 15:43 | XMS_ITS | Encounter Summary ---
:1965 Author Organization [place] Address [address] [facility] [place] [address] Care Team Providers Name Role Phone Unavailable Primary Care Provider Unavailable Encounter Details Date Type Department Care Team Description 04/15/2009 Emergency room [facility] Evelio Lamar MD Hospital Results [address] [place] [phone] (Wo rk) Social History Tobacco Use Types [...] She states that her pain clinic in [place] gave her new prescriptions to be filled [...] pain. SOCIAL HISTORY: The patient lives in [place]. Her primary care physician is Dr. Holley De La Rosa in [place], [place]. Her chronic pain doctor is Dr. Garcia at [facility] in [place]. Thepatient has had previous cervical and lumbar [...] I did speak with Dr. Torres the [place] [facility] who review her records with [...] Compazine. I gave her referral information for [facility] if she has further problems while she was in [place]. She plans to be here another 1-2 weeks. DISCHARGE DIAGNOSES: 1. Acute exacerbation of chronic back pains. 2. Nausea. Electronically signed on 05/01/2009 06:49 by EVELIO LAMAR MD MT: [id number] Name: KAYLIN MOSQUERA MRN: [id number] Account: [id number] : 1965 Visit Date: 04/15/2009 Document: [id number] cc: Oc De La Rosa MD documented in this encounter Plan of Treatment Not on filedocumented as of this encounter Visit Diagnoses Not on filedocumented in this encounter
--- OUTSIDE RECORDS SUMMARY | 2022-07-06 15:43 | XMS_ITS | Encounter Summary ---
:1965 Author Organization [place] Address [facility] [place] [address] Care Team Providers Name Role Phone Unavailable Primary Care Provider Unavailable Encounter Details Date Type Department Care Team Description 04/15/2009 Historic Results INTERFACED REPORT Kai Munoz MD [address] [facility] [address] [place] [address] (Wo rk) Social History Tobacco [...]
--- OUTSIDE RECORDS SUMMARY | 2022-07-06 15:43 | XMS_ITS | Encounter Summary ---
:1965 Author Organization [facility] Address [address] [place] [address] Care Team Providers Name Role Phone [facility] Primary Care Provide r Encounter Details [...] on filedocumented in this encounter Care Teams Human Resources Generalist Relationship Specialty Start Date End Date [facility] PCP - General 06/03/171999 [place] [address] documented as of this encounter
--- OUTSIDE RECORDS SUMMARY | 2022-07-06 15:43 | XMS_ITS | Encounter Summary ---
:1965 Author Organization [place] Address [address] [place] [address] Care Team Providers Name Role Phone Clinic, [facility] [place] Primary Care Provide r Reason for Visit Auth/Cert Specialty Diagnoses / Procedures Referred By Contact Refer red To Contact Surgery Diagnoses URGE AND STRESS INCONTINENCE,FEMALE STRESS INCONTINENCE Sh Periop Services Procedures CYSTOSCOPY, SLING TRANSVAGINAL [address], [address] [place] [address] Phone: Referral ID Status Reason Start Date Expiration Date Visits Requ ested Visits Authorized [id number] 1 1 Encounter Details Date Type Department Care Team Description 10/14/2017 Surgery [facility] [place], CYSTOSCOPY ,TVT SLING [place] PeriOP Ser ashwin Rodrigez MD [address], [address] [facility] A UROLOGY [facility] [address] [place] [address] [facility] [phone] [place] [address] (Wo rk) Surgery Details Date/Time Status Location OR Service Patient Case Class Case Tr auma Class Type Case? 10/14/17 1:00 Posted OR OR [facility] Urology Same Day PM Surgery Panel 1 [...] Comments Blood Pressure 93/59 10/14/2017 2:15 PM ENT NURSE Pulse - - Temperature 35.7 ??C (96.3 ??F) 10/14/2017 1:31 PM ENT NURSE Respiratory Rate 14 10/14/2017 2:15 PM ENT NURSE Oxygen Saturation 93% 10/14/2017 2:15 PM ENT NURSE Inhaled Oxygen Concentration - - Weight 73.9 kg (163 lb) 10/14/2017 12:15 PM ENT NURSE Height 152.4 cm (5') 10/14/2017 12:15 PM ENT NURSE Body Mass Index 31.83 10/14/2017 12:15 PM ENT NURSE documented in this encounter Discharge Instructions Discharge InstructionsGi King, RADHA - 10/14/2017 1:42 PM ENT NURSE Post Bladder Sling Instructions Dr Stafford [phone] ?? For pain you may take a narcotic/acetaminophen combination prescription for pain relief. The mostcommon pain is in the upper thighs. This usually lasts 2-3 days. You may use cold packs to this areaas needed to reduce pain and bruising. Generally pbwv-thq-cwnraut medicines such as ibuprofen, 3-4 tablets every [...] vaginal sutures. ?? Post op appointments: Call [phone] to schedule an appointment to see your [...] know so they can address your concerns. NURSE documented in this encounter Medications at Time [...] needed for muscle spasms naloxone (NARCAN) nasal [place] 4 mg into one 0 spray nostril [...] (Takes 2 x 5000 unit tablet = 43654 unit dose) ZONISAMIDE PO Take 300 mg [...] and was given a new prescription for [place]. Prescription for Oxycodone shredded. Patient took hard copy of new [place] prescription with her.; NURSE Vicki Matthews RN - 10/14/2017 3:39 PM CST Patient voided, bladder scan 450cc, encouraged patient to void again. Pt voided. Bladder scan for 100-150cc. Patient comfortable and ready to go home. NURSE documented in this encounter Miscellaneous Notes Op [...] note, she also underwent sling placement in [facility] and on exam I was able [...] and draped in the regular fashion. A 16-[place]ian [place] catheter was placed. Periurethral space was [...] EM#[id number] Name: ANGIE MOSQUERA MRN: [id number] Account: [id number] : 1965 Procedure Date: 10/14/2017 Document: [id number] cc: Rain Stafford MD NURSE documented in this encounter Plan of Treatment Not on filedocumented as of this encounter Procedures Procedure Name Priority Date/Time Associated Diagnosis Comme nts CREATION, VAGINAL 10/14/2017 12:46 PM URGE AND STRESS SLING, WITH CYSTOSCOPY ENT NURSE INCONTINENCE,FEMAL E STRESS INCONTINENCE LAB RESULT - HIM SCAN 10/11/2017 12:00 AM ENT NURSE EKG CARDIAC - HIM SCAN 08/15/2017 12:00 AM CDT XRAY IMAGING - HIM 07/25/2017 12:00 AM SCAN CDT documented in this encounter Results LAB RESULT - HIM SCAN (10/11/2017 12:00 AM ENT NURSE) Specimen (Source) Anatomical Location Collection Method / [...] 1:21 PM 30 mLs Operative EPINEPHrine 1:200,000 ENT NURSE Sit e/Surgical Site injection PRN, Starting on Tue10/14/17 at 1321, Intra-procedure ciprofloxacin (CIPRO) infusion 400 mg Given 10/14/2017 12:59 PM ENT NURSE 400 mg Routine, 400 mg, Intravenous, PRE-OP/PRE-PROCEDURE, Starting on Tue10/14/17 at 1155, For 1 dose, Irritant., Indications: Perioperative Pharmacoprophylaxis, Pre-procedure New Bag 10/14/2017 12:26 PM ENT NURSE 400 mg fentaNYL (PF) (SUBLIMAZE) injection 25-5 0 mcg Given 10/14/2017 2:01 PM ENT NURSE 50 mcg 25-50 mcg, Intravenous, EVERY 2 [...] 100 mcg., PACU Given 10/14/2017 1:50 PM ENT NURSE 50 mcg HYDROmorphone (PF) (DILAUDID) injection Given 10/14/2017 2:42 PM ENT NURSE 0.5 mg 0.3-0.5 mg 0.3-0.5 mg, Intravenous, [...] minutes., PACU/Phase II Given 10/14/2017 2:18 PM ENT NURSE 0.5 mg ondansetron (ZOFRAN) injection 4 mg Given 10/14/2017 2:18 PM ENT NURSE 4 mg 4 mg, Intravenous, EVERY 30 [...] tablet 5 mg Given 10/14/2017 2:54 PM ENT NURSE 5 mg 5 mg, Oral, ONCE, On Tue10/14/17 at 1500, For 1 dose, PACU scopolamine (TRANSDERM) 72 hr Given 10/14/2017 12:43 PM ENT NURSE 1 pa tch Behind Left Ear patch 1 patch 1 patch, Transdermal, EVERY 72 HOURS, First dose on Tue10/14/17 at 1245, Apply patch to skin, behind ear. Remove every 72 hours. Each 1.5 mg patch delivers 1 mg of scopolamine., Pre-procedure skin closure adhesive Given 10/14/2017 1:19 PM 1 applicator Operative (DERMABOND) vial ENT NURSE Site/Surgical S ite PRN, Starting on Tue10/14/17 at 1319, Intra-procedure sodium chloride 0.9% Given 10/14/2017 1:09 PM 1,000 mLs Operative (bottle) irrigation ENT NURSE Site/Surgical S ite PRN, Starting on Tue10/14/17 at 1309, Intra-procedure sterile water irrigation Given 10/14/2017 1:08 PM 3,000 mLs Operative (bag) ENT NURSE Site/Surgical S ite PRN, Intra-procedure, Starting on Tue10/14/17 at 1308, Until Tue10/14/17 at 1544 documented in this encounter Active and Recently Administered Medications Times are shown in ENT NURSE. Scheduled Medication Order 10/12/2017 10/13/2017 10/14/2017 ciprofloxacin (CIPRO) infusion 400 mg (COMPLETED) 1226 (New Bag - Provider: Rona Hanks RN)1259 (Given - Provider: Gayatri Combs APRN ENGINEERING MGR) Routine, 400 mg, Intravenous, PRE-OP/PRE -PROCEDURE, Starting [...] RADHA) 0.3-0.5 mg, Intravenous, EVERY 10 MIN AR N, other, acute pain.?May administer if Respiratory [...] 1544 documented in this encounter Care Teams Ply Cutter Relationship Specialty Start Date End Date Clinic, [facility] [place] PCP - General 06/03/171999 [place] [address] documented as of this encounter
--- OUTSIDE RECORDS SUMMARY | 2022-07-06 15:43 | XMS_ITS | Encounter Summary ---
:1965 Author Organization [place] Address [address] [place] [address] Care Team Providers Name Role Phone [facility], [facility] Primary Care Provide r Encounter Details Date Type Department Care Team Description 03/26/2021 [facility] ProviderAlea Social History Tobacco Use [...] on filedocumented in this encounter Care Teams Maintenance Instructor Relationship Specialty Start Date End Date [facility] PCP - General 06/03/171999 [place] [address] documented as of this encounter
--- OUTSIDE RECORDS SUMMARY | 2022-07-06 15:43 | XMS_ITS | Encounter Summary ---
:1965 Author Organization [place] Address [facility] [place] [address] Care Team Providers Name Role Phone Clinic, [facility] Primary Care Provide r Reason for Visit Reason Comments Back Pain Neck Pain Encounter Details Date Type Department Care Team Description 06/03/2017 Emergency [employer] [place], Zoey Acute mi dline low back pain, with sciatica presence unspecified; [facility] Emergency Dep phuong Flowers PA-C Chronic neck pain [address] [facility] [place], [place] [address] [address] [facility] [phone] [place], [place] [address] (Wo rk) Social History [...] that she received adequate care at the [facility] hospitals that she has been too. Pt reports that she left [facility] yesterday after they did not address her issues. Pt states that she would like something to take her painaway and upset that has not been receiving adequate pain control. SW explained that this typewriters functional tester could not provide pt with pain meds [...] Evans RN - 06/03/2017 3:41 PM CDT [employer] is talking with patient per patient request. [...] pain in her sternum.She was seen at [facility] and evaluated for neck pain but left [...] and that she is seeing doctors at [facility] for evaluation. She reports that most of [...] 6 months ago when she ran into [place]. She states that she called her pain management center, [facility], and that they referred her [...] a history of chronic pain who sees [facility] for her prescription for oxycodone. [...] son tells me that they went to [place] emergency room and they told the nurse that they went to [facility] emergency room as well in the past few days but nobody did anything or me. Here, the patient notes that hardware in her C-spine has loosened and she is scheduled to see [facility] physician to possibly look into [...] patient and her son that per our [facility] pain policy she could have a dose of pain medication here orally but we were not doing IM or IV and she would not get a prescription to go home with. During the work-up, I was unaware that the patient requested to see social work and social work came down to see them and came to talk to me. The psychiatric social worker supervisor states that the patient wanted to complain about our care to her but she had no complaints of social issues at home. [employer] referred her back to me. I was [...] I did also speak to a P.A. sephora operations consultant for [facility], [place], who agreed with [...] observations and the provider's statements to me. [facility] Zoey López PA-C 06/03/17 [...] Region Laterality Modality Spine, SUBRAD CT MSK, [facility] CT SPINE Compu mary Tomography Specimen (Source) [...] dose documented in this encounter Care Teams Residential Support Specialist Relationship Specialty Start Date End Date [facility], [facility] PCP - General 06/03/171999 [place] [address] documented as of this encounter
--- OUTSIDE RECORDS SUMMARY | 2022-07-06 15:43 | XMS_ITS | Encounter Summary ---
:1965 Author Organization [place] Address [address] [facility] [place] [address] Care Team Providers Name Role Phone Unavailable Primary Care Provider Unavailable Encounter Details Date Type Department Care Team Description 07/29/[address] [facility] EMERGENCY NURY CISNER[place] Results [address] [place], [place] [address] Social History Tobacco Use Types Packs/Day Years Used Date Never Assessed Sex Assigned at Date Recorded Not on file documented as of this encounter Progress Notes Interface, Field Technician - 07/31/2011 10:23 AM CDT FINAL Chief [...] she recently came to the area from [place] to visit her father (approximately two weeks [...] with a friend. The patient resides in [place], and is here in the [facility] area visiting her father. The patient states that she has been smoking one pack of cigarettes per day since 1973. Her primary care physician is Dr. Holley De La Rosa in [place], [place]. \n Her chronic pain doctor is Dr. Garcia at [facility] in [place]. - Is negative for Illicit drug use, [...] MT: JOSÉ MIGUEL Name: KAYLIN MOSQUERA Account: [id number] : 1965 Visit Date: 07/29/2011 Document: [id number] documented in this encounter Plan of Treatment Not on filedocumented as of this encounter Visit Diagnoses Not on filedocumented in this encounter
--- OUTSIDE RECORDS SUMMARY | 2022-07-06 15:43 | XMS_ITS | Encounter Summary ---
:1965 Author Organization [place] Address [address] [place] [address] Care Team Providers Name Role Phone [facility] Primary Care Provide r Encounter Details [...] on filedocumented in this encounter Care Teams Sheet Roller Operator Relationship Specialty Start Date End Date [facility] PCP - General 06/03/171999 [place] [address] documented as of this encounter
--- OUTSIDE RECORDS SUMMARY | 2022-07-06 15:43 | XMS_ITS | Encounter Summary ---
:1965 Author Organization [place] Address [address] [facility] [place] [address] Care Team Providers Name Role Phone Unavailable Primary Care Provider Unavailable Encounter Details Date Type Department Care Team Description 04/15/2009 Results Only [facility] Evelio Munoz MD Hospital Results [address] [place] [address] (Wo rk) Social History Tobacco Use Types [...] MD SPECIAL IMAGING STUDIES Performing Organization Address City/[facility] Code Phon e Number RADIOLOGY RESULTS CT [...] MD SPECIAL IMAGING STUDIES Performing Organization Address [facility] Code Phon e Number RADIOLOGY RESULTS documented in this encounter Visit Diagnoses Not on filedocumented in this encounter
--- OUTSIDE RECORDS SUMMARY | 2022-07-06 15:43 | XMS_ITS | Continuity of Care Document ---
:1965 Author Organization [facility] Address [address] [place] [address] Care Team Providers Name Role Phone Mor Singleton CRNA Unavailable Unavailable Procedures Procedure Date ANESTH, HEAD/NECK/PTRUNK ANESTH PERC IMG TX SP PROC ANESTH PERC IMG TX SP PROC Advance Directives Directive Yes / No Effective Date File Name No Information Encounters Encounter Practice Location Reason(s) Diagnoses Date Provider Provide rs Description For Visit Copied on Encounter [facility] No Areli Referring [facility] Mor. Provider: Lois CISNEROS Surgery [address] [place] [address], [place] [facility] [address] [place] [id number], [facility], [place], [place], [place], [place], [id number], [phone] [place]. . tel:[phone] tel:[phone] [facility] No [facility] Referring Anesthesia [facility] -2019 [place]. Provider: Lois CISNEROS Surgery [address] [facility], [facility] [place], [address] [id number], [id number], [facility]. [facility] tel:[phone], [place], [id number] [phone] . tel:[phone] [facility] No [facility] Referring Anesthesia [facility] -2019 [place]. Provider: PA, [address] Surgery [address] [facility] [address], [place], Endy J, [place], [place], [place], [address] [facility] [id number], [id number], John, [facility]. Denisa tel:[phone] s, [place], [id number] . tel:[phone] Family History Family Member Type Diagnosis Age At Onset No Information Payers Payer name Insurance type Covered republican ID Authorization(s ) Medicare MB [id number] [facility] [id number] Social History Type Description Quantity Date Captured [...]
--- OUTSIDE RECORDS SUMMARY | 2022-07-06 15:43 | XMS_ITS | Encounter Summary ---
:1965 Author Organization [place] Address [address] [facility] [place] [address] Care Team Providers Name Role Phone Clinic, [facility] Primary Care Provide r Reason for Visit Auth/Cert Specialty Diagnoses / Procedures Referred By Contact Refer red To Contact Surgery Diagnoses URGE AND STRESS INCONTINENCE,FEMALE STRESS INCONTINENCE Sh Periop Services Procedures CYSTOSCOPY, SLING TRANSVAGINAL [address] [place] [address] Phone: Referral ID Status Reason Start Date Expiration Date Visits Requ ested Visits Authorized [id number] 1 1 Encounter Details Date Type Department Care Team Description 10/14/2017 Hospital Encounter [facility] Sitbonnie, Mary Ann ss incontinence Shayne Rodrigez MD (Primary Dx) PreOP/Phase II [place] [address], UROLOGY [address] [facility] [address] [place] [address] [phone] Social History Tobacco Use Types Packs/Day Years Used Date Current Every Day Smoker 0.5 Smokeless Tobacco: Never Used Alcohol Use Standard Drinks/Week Comments No 0 (1 standard drink = 0.6 oz pure alcoho l) Sex Assigned at Date Recorded Not on file documented as of this encounter Last Filed Vital Signs Vital Sign Reading Time Taken Comments Blood Pressure 121/86 10/14/2017 4:28 PM AGRICULTURAL RESEARCH ENGINEER Pulse - - Temperature 36.6 ??C (97.8 ??F) 10/14/2017 3:00 PM AGRICULTURAL RESEARCH ENGINEER Respiratory Rate 16 10/14/2017 4:28 PM AGRICULTURAL RESEARCH ENGINEER Oxygen Saturation 98% 10/14/2017 4:28 PM AGRICULTURAL RESEARCH ENGINEER Inhaled Oxygen Concentration - - Weight 73.9 kg (163 lb) 10/14/2017 12:15 PM AGRICULTURAL RESEARCH ENGINEER Height 152.4 cm (5') 10/14/2017 12:15 PM AGRICULTURAL RESEARCH ENGINEER Body Mass Index 31.83 10/14/2017 12:15 PM AGRICULTURAL RESEARCH ENGINEER documented in this encounter Discharge Instructions Discharge InstructionsGi King RN - 10/14/2017 1:42 PM AGRICULTURAL RESEARCH ENGINEER Post Bladder Sling Instructions Dr Stafford [phone] ?? For pain you may take a narcotic/acetaminophen combination prescription for pain relief. The mostcommon pain is in the upper thighs. This usually lasts 2-3 days. You may use cold packs to this areaas needed to reduce pain and bruising. Generally ehqe-zow-dunakcm medicines such as ibuprofen, 3-4 tablets every [...] vaginal sutures. ?? Post op appointments: Call [phone] to schedule an appointment to see your [...] know so they can address your concerns. CULTURAL RESEARCH ENGINEER documented in this encounter Medications at Time [...] needed for muscle spasms naloxone (NARCAN) nasal [place] 4 mg into one 0 spray nostril [...] (Takes 2 x 5000 unit tablet = 41201 unit dose) ZONISAMIDE PO Take 300 mg [...] and was given a new prescription for [place]. Prescription for Oxycodone shredded. Patient took hard copy of new [place] prescription with her.; CULTURAL RESEARCH ENGINEER Vicki Matthews RN - 10/14/2017 3:39 PM CST Patient voided, bladder scan 450cc, encouraged patient to void again. Pt voided. Bladder scan for 100-150cc. Patient comfortable and ready to go home. CULTURAL RESEARCH ENGINEER documented in this encounter Miscellaneous Notes Op [...] note, she also underwent sling placement in [facility] and on exam I was able [...] and draped in the regular fashion. A 16-[place] catheter was placed. Periurethral space was [...] MD MT: [id number] Name: ANGIE MOSQUERA Account: [id number] : 1965 Procedure Date: 10/14/2017 Document: [id number] cc: Rain Stafford MD CULTURAL RESEARCH ENGINEER documented in this encounter Plan of Treatment Not on filedocumented as of this encounter Procedures Procedure Name Priority Date/Time Associated Diagnosis Comme nts CREATION, VAGINAL 10/14/2017 12:46 PM URGE AND STRESS SLING, WITH CYSTOSCOPY AGRICULTURAL RESEARCH ENGINEER INCONTINENCE,FEMAL E STRESS INCONTINENCE LAB RESULT - HIM SCAN 10/11/2017 12:00 AM AGRICULTURAL RESEARCH ENGINEER EKG CARDIAC - HIM SCAN 08/15/2017 12:00 AM CDT XRAY IMAGING - HIM 07/25/2017 12:00 AM SCAN CDT documented in this encounter Results LAB RESULT - HIM SCAN (10/11/2017 12:00 AM AGRICULTURAL RESEARCH ENGINEER) Specimen (Source) Anatomical Location Collection Method / [...] ciprofloxacin (CIPRO) infusion Given 10/14/2017 12:59 PM AGRICULTURAL RESEARCH ENGINEER 400 mg 400 mg Routine, 400 mg, Intravenous, PRE-OP/PRE-PROCEDURE, Starting on Tue10/14/17 at 1155, For 1 dose, Irritant., Indications: Perioperative Pharmacoprophylaxis, Pre-procedure New Bag 10/14/2017 12:26 PM AGRICULTURAL RESEARCH ENGINEER 400 mg fentaNYL (PF) (SUBLIMAZE) injection 25-5 0 mcg Given 10/14/2017 2:01 PM AGRICULTURAL RESEARCH ENGINEER 50 mcg 25-50 mcg, Intravenous, EVERY 2 [...] 100 mcg., PACU Given 10/14/2017 1:50 PM AGRICULTURAL RESEARCH ENGINEER 50 mcg HYDROmorphone (PF) (DILAUDID) injection Given 10/14/2017 2:42 PM AGRICULTURAL RESEARCH ENGINEER 0.5 mg 0.3-0.5 mg 0.3-0.5 mg, Intravenous, [...] minutes., PACU/Phase II Given 10/14/2017 2:18 PM AGRICULTURAL RESEARCH ENGINEER 0.5 mg ondansetron (ZOFRAN) injection 4 mg Given 10/14/2017 2:18 PM AGRICULTURAL RESEARCH ENGINEER 4 mg 4 mg, Intravenous, EVERY 30 [...] tablet 5 mg Given 10/14/2017 2:54 PM AGRICULTURAL RESEARCH ENGINEER 5 mg 5 mg, Oral, ONCE, On Tue10/14/17 at 1500, For 1 dose, PACU scopolamine (TRANSDERM) 72 hr Given 10/14/2017 12:43 PM AGRICULTURAL RESEARCH ENGINEER 1 pa tch Behind Left Ear patch 1 patch 1 patch, Transdermal, EVERY 72 HOURS, First dose on Tue10/14/17 at 1245, Apply patch to skin, behind ear. Remove every 72 hours. Each 1.5 mg patch delivers 1 mg of scopolamine., Pre-procedure documented in this encounter Active and Recently Administered Medications Times are shown in AGRICULTURAL RESEARCH ENGINEER. Scheduled Medication Order 10/12/2017 10/13/2017 10/14/2017 ciprofloxacin (CIPRO) infusion 400 mg (COMPLETED) 1226 (New Bag - Provider: Rona Hanks RN)1259 (Given - Provider: Gayatri Combs APRN BAKER DOUGHNUT) Routine, 400 mg, Intravenous, PRE-OP/PRE -PROCEDURE, Starting [...] RADHA) 0.3-0.5 mg, Intravenous, EVERY 10 MIN NE N, other, acute pain.?May administer if Respiratory [...] 1544 documented in this encounter Care Teams Camp Manager Relationship Specialty Start Date End Date [facility], [facility] PCP - General 06/03/171999 [place] [address] documented as of this encounter
--- OUTSIDE RECORDS SUMMARY | 2022-07-06 15:43 | XMS_ITS | Continuity of Care Document ---
:1965 Author Organization [facility] Address [address] [place] [address] Care Team Providers Name Role Phone [facility] Unavailable Unavailable Procedures Procedure Date IMPLANT [...] Visit Copied on Encounter [facility] No [facility] Provider: Surgery Surgery Surgery [facility]. David, [address], [place], [place], [place] [id number], [place], [place], , [place], [place] [id number], [id number]. [place]. tel: [phone] [facility] No Twin Referring [address] Provider: Surgery Surgery Surgery [facility]. David, [address], [place], [place] [id number], [place], [place], , [place] [id number], [phone]. [place]. tel: [phone] [facility] [address] Provider: Surgery Surgery Surgery [facility]. Jose [address] [facility] [address], [facility], [place], [place] , [place], [id number], [place], [address]. [place] [id number], tel: . [phone] tel:[phone] Family History Family Member Type Diagnosis Age At Onset No Information Payers Payer name Insurance type Covered green party ID Authorization(s ) Medicare [id number] [facility] [id number] Social History Type Description Quantity Date Captured [...]
--- OUTSIDE RECORDS SUMMARY | 2022-07-06 15:43 | XMS_ITS | Continuity of Care Document ---
:1965 Author Organization [facility] Address [address] [place] [address] Phone Care Team Providers Name Role Phone [...] rs Description For Visit Copied on Encounter [facility] [place] Referring [facility] Information -2007 Su. Provider : Arthur [address] [place], [address], [address] [facility], [place], [place], [place], [id number], [place], [id number], . [phone]. tel:[phone] tel:[phone] tel:[phone] [facility] Blurred No Adalberto Referring [facility] Information -2007 Deep. Provider: Arthur, (chief [address]) [address] [facility], [address], [address], [place], [place], [place], [place], [place], [place], [id number], [place], [id number], . [id number]. tel:[phone] tel:[phone] tel:[phone] Family History Family Member Type Diagnosis Age [...]
--- OUTSIDE RECORDS SUMMARY | 2022-07-06 15:43 | XMS_ITS | Encounter Summary ---
:1965 Author Organization [place] Address [facility] [place] [address] Care Team Providers Name Role Phone [facility] Primary Care Provide r Mor Bautista [...] on filedocumented in this encounter Care Teams Drywall Sander Relationship Specialty Start Date End Date [facility] PCP - General 06/03/17 [facility] [address] [place] [address] Mor Bautista MD Assigned Infectious Disease 06/12/21 [address] Provider [address] [place] [address] documented as of this encounter
--- OUTSIDE RECORDS SUMMARY | 2022-07-06 15:43 | XMS_ITS | Encounter Summary ---
:1965 Author Organization [place] Address [address] [place] [address] Care Team Providers Name Role Phone [facility], [facility] Primary Care Provide r Encounter Details Date Type Department Care Team Description 03/03[facility]2021 [facility] CON[facility] ProviderAlea Social History Tobacco [...] on filedocumented in this encounter Care Teams Public Works Director Relationship Specialty Start Date End Date [facility] PCP - General 06/03/171999 [place] [address] documented as of this encounter
--- OUTSIDE RECORDS SUMMARY | 2022-07-06 15:43 | XMS_ITS | Encounter Summary ---
:1965 Author Organization [place] Address [address] [facility] [place] [address] Care Team Providers Name Role Phone Clinic, [facility] Primary Care Provide r Reason for Visit Auth/Cert Specialty Diagnoses / Procedures Referred By Contact Refer red To Contact Surgery Diagnoses URGE AND STRESS INCONTINENCE,FEMALE STRESS INCONTINENCE Sh Periop Services Procedures CYSTOSCOPY, SLING TRANSVAGINAL [address] [place] [address] Phone: Referral ID Status Reason Start Date Expiration Date Visits Requ ested Visits Authorized [id number] 1 1 Encounter Details Date Type Department Care Team Description 10/14/[address] [facility] SruthiEri rosa MD [facility] ANESTHESIA [address] [place] [address] [place] [id number] [facility] PeriOP Gayatri Combs, BANKING ANALYST ACCOUNTS PAYABLE SPECIALIST [address] [place] [address] Services [address] [place] [address] Anesthesia Record Procedure Summary Procedure Name [...] 1320; 10/14/17 1320 by Vagina; Brendanuze Usha Bar, RADHA radiopaque vaginal packing (soaked with saline and lube); 1 Peripheral IV 10/14/17; 1251; 20 G; 10/14/17 1251 by 10/14/17 1544 by Left; Hand; Alcohol; Gayatri Combs, Vicki Collins D, Injectable; Tolerated ACCOUNTS PAYABLE SPECIALIST RN well Retired Non-Surgical 10/14/17; 1254; Easy; 10/14/17 1254 by 09/28 06/13 1328 by Airway Intravenous; 4; mm; Gayatri Combs, BANKING ANALYST Gayatri Combs, laryngeal mask airway; ACCOUNTS PAYABLE SPECIALIST BANKING ANALYST ACCOUNTS PAYABLE SPECIALIST midline; Equal, clear and bilateral; ACCOUNTS PAYABLE SPECIALIST; hh Urethral Catheter 10/14/17; 1314; No; 10/14/17 1314 by 10/14/17 1316 by /GI/SUPPORT TEAM MEMBER Pelvic Usha Bar, Carole Duff, Procedure; 16 [...] MD, MD October 14, 2017 1:50 PM MBLY INSPECTOR HELPER Anesthesia Preprocedure Evaluation - Mini Negro MD [...] SURGERY ??? BACK SURGERY ??? CHOLECYSTECTOMY ??? SUPPORT TEAM MEMBER SURGERY ??? ORTHOPEDIC SURGERY Social History Substance [...] (Takes 2 x 5000 unit tablet = 31378 unit dose) Yes Reported, Patient Esomeprazole Magnesium [...] Yes Reported, Patient naloxone (NARCAN) nasal spray [place] 4 mg into one nostril alternating nostrils [...] Reported, Patient Current Facility-Administered Medications Ordered in [facility] Medication Dose Route Frequency Last Rate Last Dose ??? Provider ordered ALTERNATE pre op antibiotic. 1 each As instructed Continuous ??? ciprofloxacin (CIPRO) infusion 400 mg 400 mg Intravenous Pre-Op/Pre-procedure x 1 dose No current [facility]-ordered outpatient prescriptions on file. ??? Another Antibiotic [...] GLC, BUN, CR, ROGER in the last 67157ucnvv. No results for input(s): AST, ALT, ALKPHOS, BILITOTAL, LIPASE in the last 42971 hours. No results for input(s): WBC, HGB, PLT in the last 75591 hours. No results for input(s): ABO, RH in the last 48547 hours. No results for input(s): INR, PTT in the last 11465 hours. No results for input(s): TROPI in the last 74255 hours. No results for input(s): PH, PCO2, PO2, HCO3 in the last 83415 hours. No results for input(s): HCG in the last 43481 hours. No results found for this or any previous visit (from the past 744 hour(s)). RECENT LABS: ECG: ECHO: MBLY INSPECTOR HELPER documented in this encounter Miscellaneous Notes Anesthesia [...] APRN CRNA October 14, 2017 1:34 PM MBLY INSPECTOR HELPER documented in this encounter Plan of Treatment Not on filedocumented as of this encounter Visit Diagnoses Not on filedocumented in this encounter Administered Medications Inactive Administered Medications - up to 3 most recent administrations Medication Order MAR Action Action Date Dose Rate Site ciprofloxacin (CIPRO) infusion Given 10/14/2017 12:59 PM ASSEMBLY INSPECTOR HELPER 400 mg 400 mg Routine, 400 mg, Intravenous, PRE-OP/PRE-PROCEDURE, Starting on Tue10/14/17 at 1155, For 1 dose, Irritant., Indications: Perioperative Pharmacoprophylaxis, Pre-procedure New Bag 10/14/2017 12:26 PM ASSEMBLY INSPECTOR HELPER 400 mg dexamethasone (DECADRON) injection Given 10/14/2017 1:03 PM ASSEMBLY INSPECTOR HELPER 4 mg PRN, Administer over 1 Minutes, Starting on Tue10/14/17 at 1303, Anesthesia Intra-op dexmedetomidine (PRECEDEX) 4 mcg/mL bolu s Bolus 10/14/2017 1:08 PM ASSEMBLY INSPECTOR HELPER 8 mcg 200 mcg, CONTINUOUS PRN, Starting on Tue10/14/17 at 1305, Anesthesia Intra-op New Bag 10/14/2017 1:05 PM ASSEMBLY INSPECTOR HELPER 12 mcg fentaNYL (PF) (SUBLIMAZE) injection Given 10/14/2017 12:52 PM ASSEMBLY INSPECTOR HELPER 100 mcg PRN, moderate to severe pain, Administer over 3-5 Minutes, Starting on Tue10/14/17 at 1252, Anesthesia Intra-op lactated ringers infusion New Bag 10/14/2017 12:51 PM ASSEMBLY INSPECTOR HELPER Intravenous, CONTINUOUS PRN, Anesthesia Intra-op, Starting on Tue10/14/17 at 1251, Until Tue10/14/17 at 1334 lidocaine injection 2% (MDV) Given 10/14/2017 12:52 PM ASSEMBLY INSPECTOR HELPER 80 mg PRN, Starting on Tue10/14/17 at 1252, Anesthesia Intra-op midazolam (VERSED) injection Given 10/14/2017 12:51 PM ASSEMBLY INSPECTOR HELPER 2 mg Administer over 2 Minutes, PRN, anxiety, Starting on Tue10/14/17 at 1251, Anesthesia Intra-op ondansetron (ZOFRAN) injection Given 10/14/2017 1:03 PM ASSEMBLY INSPECTOR HELPER 4 mg PRN, nausea, vomiting, Administer over 2-5 Minutes, Starting on Tue10/14/17 at 1303, Anesthesia Intra-op propofol (DIPRIVAN) infusion Rate/Dose 10/14/2017 1:14 150 mcg/kg/min 66.5 mL/hr Intravenous, CONTINUOUS PRN, Change PM ASSEMBLY INSPECTOR HELPER Starting on Tue10/14/17 at 1252, Anesthesia Intra-op New Bag 10/14/2017 12:52 PM ASSEMBLY INSPECTOR HELPER 200 mcg/kg/min 88.7 mL/hr propofol (DIPRIVAN) injection 10 mg/mL v ial Given 10/14/2017 1:06 PM ASSEMBLY INSPECTOR HELPER 50 mg PRN, Starting on Tue10/14/17 at 1252, Anesthesia Intra-op Given 10/14/2017 12:52 PM ASSEMBLY INSPECTOR HELPER 150 mg documented in this encounter Care Teams Arts Manager Relationship Specialty Start Date End Date Clinic, [facility] PCP - General 06/03/171999 [place] [address] documented as of this encounter
--- OUTSIDE RECORDS SUMMARY | 2022-07-06 15:43 | XMS_ITS | Encounter Summary ---
:1965 Author Organization [place] Address [facility] [place] [address] Care Team Providers Name Role Phone Unavailable Primary Care Provider Unavailable Encounter Details Date Type Department Care Team Description 07/29/2011 Historic Notes INTERFACED REPORT Interface, Transcript onMD Social History Tobacco Use Types Packs/Day Years Used Date Never Assessed Sex Assigned at Date Recorded Not on file documented as of this encounter Progress Notes Interface, Body Presser - 08/30/2011 5:48 PM CDT Allergies ?? [...]
--- OUTSIDE RECORDS SUMMARY | 2022-07-06 15:43 | XMS_ITS | Encounter Summary ---
:1965 Author Organization [place] Address [facility] [place] [address] Care Team Providers Name Role Phone Clinic, [facility] Primary Care Provider [phone] Reason for Visit Reason Comments Fall Encounter Details Date Type Department Care Team Description 05/17/2017 Emergency [facility] Jose Guadalupe Betancourt MD Acute neck pain; [facility] Emergency Dep t EMERGENCY PHYSICIANS Shoulder strain, unspecified laterality, initial encounter [address] [place], [place] [address] [address] [place] [address] [place], [place] [address] (Wo rk) Social History Tobacco Use Types [...] contain Tylenol?? (acetaminophen), including Vicodin??, Tylenol #3??, Peotone??, Lortab??, and Percocet??. You should not take [...] contain Tylenol?? (acetaminophen), including Vicodin??, Tylenol #3??, Peotone??, Lortab??, and Percocet??. You should not take [...] neck fusion Reports taking tylenol 2 hrs NURSE EPIDEMIOLOGIST Jose Guadalupe Betancourt MD - 05/17/2017 7:20 [...] Surgical History: Abdomen surgery Back surgery Cholecystectomy RADIATION CONTROL HEALTH PHYSICIST surgery Orthopedic Surgery Family History: History reviewed. [...] I spoke with Dr. Davis of the [facility] regarding patient's presentation, findings, [...] and the provider's statements to me. 05/17/2017 [facility] EMERGENCY DEPARTMENT Jose Guadalupe Betancourt [...] NAZANIN MCCORMACK MD Jose Guadalupe Betancourt MD [facility] [place] ORDER[place]LES documented in this encounter Visit [...] grams documented in this encounter Care Teams [place] Relationship Specialty Start Date End Date [facility], [facility] PCP - General 05/17/17 06/02/17 [address] [place] [address] documented as of this encounter
--- OUTSIDE RECORDS SUMMARY | 2022-07-06 15:43 | XMS_ITS | Encounter Summary ---
:1965 Author Organization [place] Address [address] [place] [address] Care Team Providers Name Role Phone Unavailable Primary Care Provider Unavailable Reason for Visit Reason Onset Date Comments Previsit 12/11/2014 12/19/[address] Juice mackenzie Encounter Details Date Type Department Care Team Description 12/11/2014 PRE VISIT Yasmin, Previsit ( [facility] Shauna Alejo MD with Dr Humphrey) [place] [address] [place], [place] [phone] [id number] (Wo rk) Social History Tobacco Use Types Packs/Day Years Used Date Never Assessed Sex Assigned at Date Recorded Not on file documented as of this encounter Plan of Treatment Not on filedocumented as of this encounter Visit Diagnoses Not on filedocumented in this encounter
--- OUTSIDE RECORDS SUMMARY | 2022-07-06 15:43 | XMS_ITS | Encounter Summary ---
:1965 Author Organization [facility] Address [address] [place] [address] Care Team Providers Name Role Phone Amna Fletcher Primary Care Provider Reason for Visit Reason Comments Chest Wall Pain Encounter Details Date Type Department Care Team Description [facility]2016 [facility], [facility]; [facility] Emergency [facility] phuong Ross MD Closed fracture of rib of right side, in itial encounter [address] [facility] [address] [facility] [address] [place] [address] (Wo rk) Social History Tobacco Use Types [...] your healthcare provider ?? Congested cough ?? [phone] [employer] [address] [place] [address]. All rights reserved. This information is not intended as a substitute for professional medical care. Always follow your healthcare professional's instructions. AttachmentsThe following attachments cannot be sent through Care Everywhere.BONE BRUISE (BONE CONTUSION), UNDERSTANDING (ALBANIAN)documented in this encounter Medications at Time of [...] surgery Bilateral knee arthroplasty Gastric bypass Cholecystectomy Before School Babysitter surgery Family History: History reviewed. No pertinent [...] Department Course ECG (01:17:19): Rate 69 bpm. UT interval 176. QRS duration 94. QT/QTc 408/437. [...] hours for 10 days Adrian Vera 07/18/2016 [facility] IAdrian am serving as a scribe at 1:03 AM on 07/18/2016 to document services personally performed by Radha Espana MD based on my observations and the provider's statements to me. Radha Espana MD 07/18/16 [address], RADHA - 07/18/2016 12:48 AM [...] EKG 12 lead (07/18/2016 1:17 AM CDT) [facility] gist Method Time Signature Interpretation ECG Click [...] dose documented in this encounter Care Teams Remote Sensing Technologist Relationship Specialty Start Date End Date Amna Fletcher PCP - General 07/18/16 05/16/17 [facility] [address] [place] [address] documented as of this encounter
--- OUTSIDE RECORDS SUMMARY | 2022-07-06 15:43 | XMS_ITS | Encounter Summary ---
:1965 Author Organization [facility] Address [address] [place] [id number] Care Team Providers Name Role Phone [facility] Primary Care Provide r Encounter Details Date Type Department Care Team Description [facility] ProviderAlea Social History [...] on filedocumented in this encounter Care Teams Fruit Shipper Relationship Specialty Start Date End Date [facility] PCP - General 06/03/17[address] [place] [address] documented as of this encounter
--- OUTSIDE RECORDS SUMMARY | 2022-07-06 15:43 | XMS_ITS | Continuity of Care Document ---
:1965 Author Organization [facility] Address [address] [place] [address] Phone Care Team Providers Name Role Phone [...] rs Description For Visit Copied on Encounter [facility] No Information Nov- ZProvider [facility] [address] . . Rheumatolo gy, [address] [facility], [place], [place], [id number], [place] tel:[phone] [facility] TOBACCO USE Apr-1 Michele Arthritis DISORDEROBESITY [address]. And NOSOSTEOPOROSIS NOS [address], gy, [address], [address], [place], [id number], [place], [place]. [id number], tel:[phone] tel:[phone] [facility] Age-related Apr-0 ZProvider [facility] osteoporosis w/o [address] current 4 . . Rheumatolo pathological gy, [address] [place] [address], [id number], [place] tel:[phone] [facility] OBESITY NOSTOBACCO Mar-2 ZProvider Arthritis USE [address] DISORDEROSTEOPOROSI 4 . . Rheumatolo S NOSMALAISE AND gy, [address], [place], [place], [id number], [place] tel:[phone] [place] [facility] [place] Tobacco useObesity, Mar-2 Michele Arthritis unspecifiedAge-rela Nara. And mary osteoporosis [address], gy, [address] [place], [address], [place], [place], [id number], [place], [place]. [id number], tel:[phone] tel:[phone] Family History Family Member Type Diagnosis Age At Onset Problem (finding) Mother Problem (finding) The patient reports no changes except otherwise noted during the prese nt visit Problem (finding) Father living Problem (finding) Osteoporosis Problem (finding) Number of Sisters Problem (finding) Number of Brothers Payers Payer name Insurance type Covered republican [...]
--- OUTSIDE RECORDS SUMMARY | 2022-07-06 15:44 | XMS_ITS | Continuity of Care Document ---
:1965 Author Organization [facility] Address [address] [place] [address] Phone Care Team Providers Name Role Phone [...] elctr each OFFICE/OUTPATIENT VISIT, EST SCS PreTrial [place] [employer] OFFICE/OUTPATIENT VISIT, EST OFFICE/OUTPATIENT VISIT, EST [...] For Visit Copied on Encounter OFFICE VISIT, [facility] Back Pain Pain in left Apr- [facility] (chief shoulderAnxiety [place]. TELEMEDICINE Pain [place] complaint) disorder, [address] [facility], unspecifiedChronic John, [address] migraine without [place], aura, intractable, [place], [place], [place], without status [id number] [place], migrainosusOsteoar , [place]. [id number] thritisPain in tel: , [place] right hipPain in [id number] tel: left hipPain in [id number] left kneePain in right kneeOther spondylosis, cervical regionOther spondylosis, lumbar regionRadiculopath y, lumbar regionPain in thoracic spinePostlaminecto my syndrome, not elsewhere classifiedFibromya lgiaLong term (current) use of opiate analgesic OFFICE VISIT, [facility] Back Pain Pain in left March- [facility] (chief hipAnxiety [place]. TELEMEDICINE Pain [place] complaint) disorder, [address] [facility], unspecifiedChronic John, [address] migraine without [place], aura, intractable, is, [place], C[place], without status [id number] [place], migrainosusOsteoar , [place]. [id number] thritisPain in tel: , US left shoulderPain [id number] tel: in right hipPain [id number] in left kneePain in right kneeOther spondylosis, cervical regionOther spondylosis, lumbar regionRadiculopath y, lumbar regionPain in thoracic spineFibromyalgiaP ostlaminectomy syndrome, not elsewhere classifiedLong term (current) use of opiate analgesic [facility] No Information [facility] [place]. Pain [place] [address] [facility], John, [address] [place], is, [place], [place], [id number] [place], , [place]. [id number] tel: , [place] [id number] tel: [phone] OFFICE/OUTPAT [facility] Back Pain Anxiety disorder, Feb- Ka ngas Referring IENT VISIT, [facility] (chief unspecifiedChronic [place] . Provider: EST Pain [place] complaint) migraine without [address] [facility], aura, intractable, John, Will J, [address] without status [place] [address] John, migrainosusOsteoar is, [place], John, Caterina, thritisPain in [id number] [place], left shoulderPain , [place]. s, [place], [id number] in left hipPain in tel: [phone] , US right hipPain in [id number] . tel: left kneePain in tel:2 [phone] right kneeOther [id number] spondylosis, cervical regionOther spondylosis, lumbar regionRadiculopath y, lumbar regionPain in thoracic spineFibromyalgiaP ostlaminectomy syndrome, not elsewhere classifiedLong term (current) use of opiate analgesic OFFICE VISIT, [facility] Back Pain Chronic migraine Jan- Jens [facility] (chief without aura, [place]. TELEMEDICINE Pain [place] complaint) intractable, 2 [address] [facility], without status John, [address] migrainosusAnxiety [place], disorder, is, [place], C[place]ina, unspecifiedOsteoar [id number] [place], thritisPain in , [place]. [id number] left shoulderPain tel: , US in right hipPain [id number] tel: in left hipPain in 89008751 right kneePain in left kneeOther spondylosis, cervical regionOther spondylosis, lumbar regionRadiculopath y, lumbar regionPain in thoracic spineFibromyalgiaP ostlaminectomy syndrome, not elsewhere classifiedLong term (current) use of opiate analgesic [facility] No Information Mario Refer [facility] [place]. Provider: Pain [place] 2 [address] [facility], Endy Lopez, [address] [place] [address] [facility] John, is, [place], John, [place], [id number] [place], , [place]. s, [place], [id number] tel: [phone] , [place] [id number] . tel: tel: [phone] OFFICE VISIT, [facility] (chief lumbar [place]. TELEMEDICINE Pain [place] complaint) regionPostlaminect 2 [address] [facility], marquis syndrome, not John, [address] elsewhere [place] John, classifiedPain in is, [place], Caterina, left hipAnxiety [id number] [place], disorder, , [place]. [id number] unspecifiedPain in tel: , US thoracic [phone] tel: spineOsteoarthriti [phone] sChronic migraine without aura, intractable, without status migrainosusPain in right hipPain in left shoulderPain in right kneePain in left kneeFibromyalgiaOt her spondylosis, lumbar regionOther spondylosis, cervical regionLong term (current) use of opiate analgesicEncounter for therapeutic drug level monitoring OFFICE VISIT, [facility] Back Pain Radiculopathy, Kanga s Referring [facility] (chief lumbar [place]. Provider: TELEMEDICINE Pain [place] complaint) regionPostlaminect 2 [address] [facility], marquis syndrome, not John, Will J , [address] elsewhere [place] [address] John classifiedPain in is, [place], John, [place], left hipAnxiety [id number] Augusta fischer [place], disorder, , [place]. s, [place], [id number] unspecifiedPain in tel: [phone] , [place] thoracic [id number] . tel: spineOsteoarthriti tel : [phone] sChronic migraine 37471 45 without aura, intractable, without status migrainosusPain in right hipPain in left shoulderPain in right kneePain in left kneeFibromyalgiaOt her spondylosis, lumbar regionOther spondylosis, cervical regionLong term (current) use of opiate analgesic OFFICE VISIT, [facility] Back Pain Radiculopathy, Michael s Referring [facility] (chief lumbar [place]. Provider: TELEMEDICINE Pain [place] complaint) regionPostlaminect 2 7[address] [facility], marquis syndrome, not John, Will J , [address] elsewhere [place] [address] John classifiedPain in is, [place], John, [place], left hipAnxiety [id number] Augusta fischer [place], disorder, , [place]. s, [place], [id number] unspecifiedPain in tel: [phone] , [place] thoracic [id number] . tel: spineOsteoarthriti tel : [phone] sChronic migraine 70149 45 without aura, intractable, without status migrainosusPain in right hipPain in left shoulderPain in right kneePain in left kneeFibromyalgiaOt her spondylosis, lumbar regionLong term (current) use of opiate analgesicOther spondylosis, cervical region OFFICE VISIT, [facility] Back Pain Radiculopathy, Kanga s [facility] (chief lumbar [place]. TELEMEDICINE Pain [place] complaint) regionPostlaminect 1 [address] [facility], marquis syndrome, not John, [address] elsewhere [place] John, classifiedPain in is, [place], [place], left hipAnxiety [id number] [place], disorder, , US. [id number] unspecifiedPain in tel: , US thoracic [phone] tel: spineOsteoarthriti [phone] sChronic migraine without aura, intractable, without status migrainosusPain in right hipPain in left shoulderPain in right kneePain in left kneeFibromyalgiaOt her spondylosis, lumbar regionLong term (current) use of opiate analgesicOther spondylosis, cervical region OFFICE/OUTPAT [facility] Back Pain Other spondylosis, bakari Referring IENT VISIT, [facility] (chief cervical [place]. Provide r: EST Pain [place] complaint) regionRadiculopath 1 [address] [facility], y, lumbar John, Will J, [address] regionPostlaminect [place] [address] John, marquis syndrome, not is, [place], John, [place], elsewhere [id number] [facility] [place], classifiedPain in , [place]. s, [place], 988548022 left hipAnxiety tel: [phone] , [place] disorder, [id number] . tel: unspecifiedPain in tel :2 [phone] thoracic 0754093 spineOsteoarthriti sChronic migraine without aura, intractable, without status migrainosusPain in right hipPain in left shoulderPain in right kneePain in left kneeFibromyalgiaOt her spondylosis, lumbar regionLong term (current) use of opiate analgesic OFFICE VISIT, [facility] Back Pain Other spondylosis, K ang EST [facility] (chief cervical [place]. TELEMEDICINE Pain [place] complaint) regionRadiculopath 1 [address] [facility] [facility], y, lumbar John, [address] regionPostlaminect [place], marquis syndrome, not is, [place], [place], elsewhere [id number] [place], classifiedPain in , US. 153522628 left hipAnxiety tel: , [place] disorder, [id number] tel: unspecifiedPain in [id number] thoracic spineOsteoarthriti sChronic migraine without aura, intractable, without status migrainosusPain in right hipPain in left shoulderPain in right kneePain in left kneeFibromyalgiaOt her spondylosis, lumbar regionLong term (current) use of opiate analgesic OFFICE VISIT, [facility] Back Pain Other spondylosis, Jul- K angas Referring EST [facility] (chief cervical [place]. Provider: TELEMEDICINE Pain [place] complaint) regionRadiculopath 1 [address] [facility], y, lumbar John, Will J, [address] regionPostlaminect [place] [address] John, marquis syndrome, not is, [place], John, [place], elsewhere [id number] [place], classifiedPain in , [place]. s, MN, [id number] left hipAnxiety tel: [phone] , [place] disorder, 70550897 . tel: unspecifiedPain in tel : [phone] thoracic 7740285 spineOsteoarthriti sChronic migraine without aura, intractable, without status migrainosusPain in right hipPain in left shoulderPain in right kneePain in left kneeFibromyalgiaOt her spondylosis, lumbar regionLong term (current) use of opiate analgesic [facility] Encounter for Mario Referr ing [facility] therapeutic drug [place]. Pro vider: Pain [place] level 1 [address] [facility], monitoringLong John, Will J, [address] term (current) use [place] [address] John, of opiate is, [place], John, [place]ina, analgesic [id number] [place], , [place]. s, [place], 3667[address] tel: [phone] , [place] [id number] . tel: tel: [phone] OFFICE/OUTPAT [facility] Back Pain Other spondylosis, Aug K angas Referring IENT VISIT, [facility] (chief lumbar [place]. Provider : EST Pain [place] complaint) regionFibromyalgia 1 [address] [facility], Pain in left John, Will J, [address] kneePain in right [place] [address] John, kneePain in left is, [place], John, Caterina, shoulderPain in [id number] [place], right hipChronic , [place]. s, [place], 707784756 migraine without tel:+ [phone] , [place] aura, intractable, 58963931 . tel: without status tel: [phone] migrainosusOsteoar 8412 345 thritisPain in thoracic spineAnxiety disorder, unspecifiedPain in left hipPostlaminectomy syndrome, not elsewhere classifiedRadiculo shane, lumbar regionOther spondylosis, cervical regionLong term (current) use of opiate analgesicEncounter for therapeutic drug level monitoring OFFICE VISIT, [facility] Back Pain Other spondylosis, K [facility] Referring [facility] (chief lumbar [place]. Provider: TELEMEDICINE Pain [place] complaint) regionFibromyalgia 1 [facility] [facility], Pain in left John, Will J, [address] kneePain in right [place] [address] John, kneePain in left is, [place], John, Caterina, shoulderPain in [id number] [place], right hipChronic , [place]. s, [place], 185108820 migraine without tel:+ [phone] , [place] aura, intractable, 97556753 . tel: without status tel: [phone] migrainosusOsteoar 8412 345 thritisPain in thoracic spineAnxiety disorder, unspecifiedPain in left hipPostlaminectomy syndrome, not elsewhere classifiedRadiculo shane, lumbar regionOther spondylosis, cervical regionLong term (current) use of opiate analgesic OFFICE VISIT, [facility] Back Pain Other spondylosis, Kanu0 K [facility] Referring [facility] (chief lumbar [place]. Provider: TELEMEDICINE Pain [place] complaint) [facility]Fibromyalgia 1 [facility] Pain in left John, Will J, [address] kneePain in right [place] [address] John, kneePain in left is, [place], John, Caterina, shoulderPain in [id number] [place], right hipChronic , [place]. s, [place], 794174609 migraine without tel:+ [phone] , [place] aura, intractable, [id number] . tel: without status tel: [phone] migrainosusOsteoar 8412 345 thritisPain in thoracic spineAnxiety disorder, unspecifiedPain in left hipPostlaminectomy syndrome, not elsewhere classifiedRadiculo shane, lumbar regionOther spondylosis, cervical regionLong term (current) use of opiate analgesic OFFICE VISIT, [facility] Back Pain Other spondylosis, [facility] Ref[facility] (chief lumbar [place]. Provider: TELEMEDICINE Pain [place] complaint) regionFibromyalgia 1 [address] [facility], Pain in left John, Will J, [address] kneePain in right [place] [address] John, kneePain in left is, [place], Jhon, [place], shoulderPain in [id number] [place], right hipChronic , [place]. s, MN, 348933309 migraine without tel: [phone] , [place] aura, intractable, 22997729 . tel: without status tel: [phone] migrainosusOsteoar 8412 345 thritisPain in thoracic spineAnxiety disorder, unspecifiedPain in left hipPostlaminectomy syndrome, not elsewhere classifiedRadiculo shane, lumbar regionOther spondylosis, cervical regionLong term (current) use of opiate analgesic [facility] Back Pain Other spondylosis, Mario Referring [facility] (chief lumbar [place]. Provider: Pain [place] complaint) regionFibromyalgia 1 [address] [facility], Pain in left John, Will J, [address] kneePain in right [place] [address] John, kneeChronic is, [place], John, [place], migraine without [id number] [place], aura, intractable, , [place]. s, [place] , [id number] without status tel: [phone] , [place] migrainosusPain in 54186423 . tel: right hipPain in tel: [phone] left shoulderPain 75327 45 in right shoulderOsteoarthr itisPain in thoracic spineAnxiety disorder, unspecifiedPain in left hipPostlaminectomy syndrome, not elsewhere classifiedRadiculo shane, lumbar regionOther spondylosis, cervical regionLong term (current) use of opiate analgesic OFFICE VISIT, [facility] Back Pain Other spondylosis, Mar-2 K bakarias Referring [facility] (chief lumbar [place]. Provider: TELEMEDICINE Pain [place] complaint) regionFibromyalgia 1 [address] [facility], Pain in left John, Will J, [address] kneePain in right [place] [address] John, kneeChronic is, [place], John, [place], migraine without [id number] [place], aura, intractable, , [place]. s, [place] , 663993552 without status tel: [phone] , [place] migrainosusPain in 31138570 . tel: right hipPain in tel: [phone] left shoulderPain 89005 45 in right shoulderOsteoarthr itisPain in thoracic spineAnxiety disorder, unspecifiedPain in left hipPostlaminectomy syndrome, not elsewhere classifiedRadiculo shane, lumbar regionOther spondylosis, cervical regionLong term (current) use of opiate analgesic OFFICE VISIT, [facility] Back Pain Pain in left Fe- Mario Referring [facility] (chief hipPostlaminectomy [place]. P rovider: TELEMEDICINE Pain [place] complaint) syndrome, not 1 7235 [facility], elsewhere John, Endy J, [address] classifiedRadiculo [place] [address] John, shane, lumbar is, [place], John, [place], regionOther [id number] [place], spondylosis, , [place]. s, [place], 257567071 cervical tel: [phone] , [place] regionOther [id number] . tel: spondylosis, tel: 2 [phone] lumbar 3903213 regionFibromyalgia Pain in left kneePain in right kneeChronic migraine without aura, intractable, without status migrainosusPain in right hipPain in left shoulderPain in right shoulderOsteoarthr itisPain in thoracic spineAnxiety disorder, unspecifiedLong term (current) use of opiate analgesic OFFICE VISIT, [facility] Back Pain Pain in left [facility] Referring [facility] (chief hipPostlaminectomy [facility]. P rovider: TELEMEDICINE Pain [place] complaint) syndrome, not 1 7[address] [facility], elsewhere John, Will J, [address] classifiedRadiculo [place] [address] John, shane, lumbar is, [place], John, Caterina, regionOther [id number] [place], spondylosis, , [place]. s, [place], 378763357 cervical tel: [phone] , [place] regionOther 97314539 . tel: spondylosis, tel: 2 [phone] lumbar 6601566 regionFibromyalgia Pain in left kneePain in right kneeChronic migraine without aura, intractable, without status migrainosusPain in right hipPain in left shoulderPain in right shoulderOsteoarthr itisPain in thoracic spineAnxiety disorder, unspecifiedLong term (current) use of opiate analgesic OFFICE VISIT, [facility] Pain in left [facility] Referring [facility] (chief hipPostlaminectomy [facility]. P rovider: TELEMEDICINE Pain [place] complaint) syndrome, not 0 [address] [facility], elsewhere John, Will J, [address] classifiedRadiculo [place] [address] John, shane, lumbar is, [place], John, [place], regionOther [id number] [place], spondylosis, , [place]. s, [place], 148911127 cervical tel: [phone] , [place] regionOther 47536539 . tel: spondylosis, tel: 2 [phone] lumbar 6554823 regionFibromyalgia Pain in left kneePain in right kneeChronic migraine without aura, intractable, without status migrainosusPain in right hipPain in left shoulderPain in right shoulderOsteoarthr itisPain in thoracic spineAnxiety disorder, unspecifiedLong term (current) use of opiate analgesic OFFICE VISIT, [facility] Back Pain Postlaminectomy [facility] Referring EST [facility] (chief syndrome, not [place]. Provid er: TELEMEDICINE Pain [place] complaint) elsewhere 0 [address] [facility], classifiedRadiculo Endy Lopez J, [address] shane, lumbar [place] 7[address] [facility] John, regionOther is, [place], John, Caterina, spondylosis, [id number] [place], cervical , [place]. s, [place], 916059678 regionOther tel: [phone] , [place] spondylosis, 27798493 . tel: lumbar tel: [phone] regionFibromyalgia 8412 345 Pain in left kneePain in right kneeChronic migraine without aura, intractable, without status migrainosusPain in left hipPain in right hipPain in left shoulderPain in right shoulderOsteoarthr itisPain in thoracic spineAnxiety disorder, unspecifiedLong term (current) use of opiate analgesic OFFICE/OUTPAT [facility] Back Pain Postlaminectomy Gonzalez as Referring IENT VISIT, [facility] (chief syndrome, not [place]. Pr ovider: EST Pain [place] complaint) elsewhere 0 [facility] [facility], classifiedRadiculo Endy Lopez J, [address] shane, lumbar [place] [address] [facility] John, regionOther is, [place], John, [place], spondylosis, [id number] [place], cervical , [place]. s, [place], 231348657 regionOther tel: [phone] , [place] spondylosis, 04520103 . tel: lumbar tel: [phone] regionFibromyalgia 8412 345 Pain in left kneePain in right kneeChronic migraine without aura, intractable, without status migrainosusPain in left hipPain in right hipPain in left shoulderPain in right shoulderOsteoarthr itisPain in thoracic spineAnxiety disorder, unspecifiedLong term (current) use of opiate analgesicEncounter for therapeutic drug level monitoring OFFICE VISIT, [facility] Back Pain Postlaminectomy Gonzalez as Referring EST [facility] (chief syndrome, not [place]. Provid er: TELEMEDICINE Pain [place] complaint) elsewhere 0 [address] [facility], classifiedRadiculo John, Will J, [address] shane, lumbar [place] [address] John, regionOther is, [place], John, Caterina, spondylosis, [id number] [place], cervical , [place]. s, [place], 042802689 regionOther tel: [phone] , [place] spondylosis, 42308660 . tel: lumbar regionLong tel: [phone] term (current) use 8412 345 of opiate analgesicAnxiety disorder, unspecifiedFibromy algiaPain in left kneePain in right kneeChronic migraine without aura, intractable, without status migrainosusPain in left hipPain in right hipPain in left shoulderPain in right shoulderOsteoarthr itisPain in thoracic spine OFFICE VISIT, [facility] Back Pain Postlaminectomy Yeimy en Referring [facility] (chief syndrome, not Venu. Provid er: TELEMEDICINE Pain [place] complaint) elsewhere 0 [address] [facility], [address] Jermaine l J, [address] shane, lumbar 11 Umair [address] John, regionOther 100, John, [place], spondylosis, [place], cervical e, [place], s, [place], 039495824 regionOther [id number] [phone] , [place] spondylosis, , [place]. . tel: lumbar regionLong tel: te l: [phone] term (current) use [id number] of opiate analgesicAnxiety disorder, unspecified [facility] Postlaminectomy RN RN. Refe [facility] Pain Clinic syndrome, not [address] Prov ider: Pain [place] elsewhere 0 [facility], classified [place] Will J, [address] is, [place], [address] John, [id number] John, [place], , [place]. [place], tel: s, [place], [id number] [phone] , [place] . tel: tel: [phone] [facility] Postlaminectomy Ko Ref [facility] Surgery syndrome, not Gi. Provider: Pain Center elsewhere 0 7235 [facility], classified John Endy J, [address] [place] [address] John, is, [place], John, [place], [id number] [place], , [place]. s, [place], 939781335 tel:+ [phone] , [place] [id number] . tel: tel:+[phone] OFFICE VISIT, [facility] Postlaminectomy Kanga s Referring [facility] (chief syndrome, not [place]. Provider: TELEMEDICINE Pain complaint) elsewhere 0 7235 [facility], classifiedRadiculo Endy Lopez J, [address] shane, lumbar [place] [address] John, regionOther is, [place], John, [place], spondylosis, [id number] [place], cervical , [place]. s, [place], 572460983 regionOther tel: [phone] , [place] spondylosis, 35943688 . tel: lumbar regionLong tel: 2 [phone] term (current) use 8412 345 of opiate analgesicAnxiety disorder, unspecified [facility] Postlaminectomy Mario Refe [facility]3] Pain Clinic syndrome, not [place]. Provid er: Pain [place] elsewhere 0 7235 [facility], classified Endy Lopez J, [address] [place] [address] John, is, [place], John, [place], [id number] [place], , [place]. s, [place], 565017093 tel: [phone] , [place] [id number] . tel: tel:2 [phone] [facility] Postlaminectomy Koka Ref [facility] Surgery syndrome, not Gi. Provider: Pain Center elsewhere 0 7235 [facility], classified Endy Lopez, [address] [place] [address] John, is, [place], John, [place]ina, [id number] [place], , [place]. s, [place], 886548041 tel: [phone] , [place] [id number] . tel: tel: [phone] OFFICE VISIT, [facility] Back Pain Postlaminectomy Kang s Referring [facility] (chief syndrome, not [place]. Provider: TELEMEDICINE Pain complaint) elsewhere 0 7235 [facility], classifiedRadiculo Endy Lopez, [address] shane, lumbar [place] [address] [facility] John, regionLong term is, [place], John [place], (current) use of [id number] [place], opiate , [place]. s, [place], 268712278 analgesicOther tel: [phone] , [place] spondylosis, 89671358 . tel: cervical tel: [phone] regionOther [id number] spondylosis, lumbar region [facility] No Information [facility] [place]. Pain Caterina 0 7235 [facility], John, [address] [place], is, [place], [place], [id number] [place], , [place]. 619871586 tel: , [place] [id number] tel: [phone] OFFICE VISIT, [facility] Back Pain CervicalgiaPostlam K bakarias Referring [facility] (chief inectomy syndrome, Rosetta. P rovider: TELEMEDICINE Pain Caterina complaint) not elsewhere 0 7235 [facility], classifiedRadiculo Endy Lopez, [address] [place] shane, lumbar [place] 7235 O [facility] John, regionLong term is, [place], John [place], (current) use of [id number] [place], opiate analgesic , [place]. [place], [place], [address] tel: [phone] , [place] [id number] . tel: tel:[phone] Psych Dx Eval [facility] Pain disorder with Julinaa e [facility] related Maikel Provider: Pain psychological 0 Peg. 7235 [facility], factorsBipolar Ohnj Will J, 7235 [address] disorder John, 7235 [address] John, [place] John, Caterina, is, [place], [place], [id number] s, [place], [id number] , [place]. [address] , [place] tel: . tel: [phone] tel: [phone] OFFICE VISIT, [facility] Back Pain Postlaminectomy Apr- Michael s Referring [facility] (chief syndrome, not Rosetta. Provider: TELEMEDICINE Pain complaint) elsewhere 0 7235 [facility], classifiedLong Endy Lopez, 7235 [address] term (current) use [place] 7 235 [place] John, of opiate is, [place], John, [place], analgesicRadiculop [id number] [place], athy, lumbar , [place]. [place], [place], [address]8712 regionCervicalgia tel: [phone] , [place] [id number] . tel: tel: [phone] [facility] No Information Jan- [facility], [facility] Letcher. Pain [place] 0 7235 [facility], John, [address]235 [address] [place] John, is, [place], C[place]ina, [id number] [place], , [place]. [id number] tel: , [place] [id number] tel: [phone] OFFICE/OUTPAT [facility] Back Pain Postlaminectomy Jan- Gonzalez as Referring IENT VISIT, [facility] (chief syndrome, not Rosetta. Pr ovider: EST Pain Caterina complaint) elsewhere 0 7235 [address] [facility], classifiedLong Endy Lopez, 7235 [address] term (current) use [place] 7 235 [place] John, of opiate is, [place], [place], [place], analgesicCervicalg [id number] [place], iaRadiculopathy, , [place]. [place], [place], [address] lumbar region tel: [phone] , [place] [id number] . tel: tel:[phone] [facility] Postlaminectomy Mar- Garcia Refe rring [facility] Surgery syndrome, not Viry. Provider: Pain Center elsewhere 0 7235 [facility], classified John, Will J, 7235 [address] [place] 7235 [place] John, is, [place], Caterina Lopez, [id number] [place], , [place]. [place], [place], [address] tel:+ [phone] , [place] [id number] . tel: tel:[phone] OFFICE/OUTPAT [facility] Back Pain Postlaminectomy Gonzalez as Referring IENT VISIT, [facility] (chief syndrome, not Rosetta. Pr ovider: EST Pain [place] complaint) elsewhere 0 7235 [facility], classifiedCervical Endy Lopez, 7235 [address] giaRadiculopathy, [place] 72 35 [place] John, lumbar regionLong is, [place], Caterina Lopez, term (current) use [id number] [place], of opiate , [place]. [place], [place], 97[address] analgesicCarrier tel:+ [phone] , [place] of Methicillin [id number] . tel: susceptible tel:[phone] Staphylococcus [id number] aureusCarrier of Methicillin resistant Staph aureusMethicillin resis staph infct causing diseases classd elswhrEncounter for therapeutic drug level monitoring [facility] Postlaminectomy [facility] syndrome, not [place]etta. Pain [place] elsewhere 0 7235 [facility], classified John, 7235 [address] [place] John, is, [place], C[place], [id number] [place], , [place]. 5348067[address] tel: , [place] [id number] tel: [phone] OFFICE/OUTPAT [facility] Back Pain Radiculopathy, Kanga s Referring IENT VISIT, [facility] (chief lumbar Rosetta. Provider : EST Pain Caterina complaint) regionPostlaminect 0 7235 [facility], marquis syndrome, not John, Will J , 7235 [address] elsewhere [place] 7235 [place] John, classifiedCervical is, [place], Caterina Lopez, giaLong term [id number] [place], (current) use of , [place]. [place], [place], 855073567 opiate analgesic tel: [phone] , [place] [id number] . tel: tel: [phone] OFFICE/OUTPAT [facility] Back Pain Radiculopathy, Kanga s Referring IENT VISIT, [facility] (chief lumbar 7-201 [place]. Provider : EST Pain [place] complaint) regionCervicalgiaL 9 35 [facility], beryl term (current) Endy Lopez, 7235 [address] use of opiate [place] 7235 O hms John, analgesicPostlamin is, [place], John, Caterina, ectomy syndrome, [id number] [place], not elsewhere , [place]. [place], [place], 355484024 classified tel: [phone] , [place] [id number] . tel: tel: [phone] OFFICE/OUTMDT [facility] Back Pain Chronic pain Mario Referring IENT VISIT, [facility] (chief syndromePostlamine 6-201 [place] . Provider: EST Pain Caterina complaint) ctomy syndrome, 9 35 [facility], not elsewhere Endy Lopez, 7235 [address] classifiedRadiculo [place] 7 235 [address] John, shane, lumbar is, [place], John, Caterina, regionCervicalgiaL [id number] [place], beryl term (current) , [place]. [place], [place] , 169200462 use of opiate tel: [phone] , [place] analgesic [id number] . tel: tel: [phone] OFFICE/OUTPAT [facility] Back Pain senior living Mario Re ferring IENT VISIT, [facility] (chief (current) use of 9-201 [place]. Provider: EST Pain [place] complaint) opiate 9 [facility], analgesicPostlamin Endy Lopez, 7235 [address] ectomy syndrome, [place] 723 5 Ohms John, not elsewhere is, [place], John, [place], classifiedRadiculo [id number] [place], shane, lumbar , [place]. s, MN, 804196513 regionCervicalgia tel: [phone] , [place] [id number] . tel: tel:[phone] OFFICE/OUTPAT [facility] Back Pain Postlaminectomy Carlos as Referring IENT VISIT, [facility] (chief syndrome, not 0-201 [place]. Pr ovider: EST Pain Caterina complaint) elsewhere 9 7235 [facility], classifiedLow back John, Will J, 7235 [address] painCervicalgiaLon [place] 7 235 [address] John, g term (current) is, [place], John, Caterina, use of opiate [id number] [place], analgesic , [place]. [place], [place], 565266222 tel: [phone] , [place] [id number] . tel: tel:[phone] OFFICE/OUTPAT [facility] Back Pain Postlaminectomy Carlos as Referring IENT VISIT, [facility] (chief syndrome, not 0-201 [place]. Pr ovider: EST Pain Caterina complaint) elsewhere 9 7235 [facility], classifiedLow back John, Will J, 7235 [address] painCervicalgiaLon [place] 7 235 [address] John, g term (current) is, [place], John, Caterina, use of opiate [id number] [place], analgesic , [place]. [place], [place], 490354871 tel: [phone] , [place] [id number] . tel: tel:[phone] OFFICE/OUTPAT [facility] Back Pain Postlaminectomy Carlos as Referring IENT VISIT, [facility] (chief syndrome, not 1-201 [place]. Pr ovider: EST Pain Caterina complaint) elsewhere 9 7235 [facility], classifiedLow back John, Will J, 7235 [address] painCervicalgiaEnc [place] 7 235 [address] more [place] for is, [place], John, Caterina, therapeutic drug [id number] [place], level , [place]. [place], [place], 1875[address] monitoringLong tel: [phone] , [place] term (current) use [id number] . tel: of opiate tel: [phone] analgesic [phone] OFFICE/OUTPAT [facility] Back Pain Postlaminectomy March- Gonzalez as Referring IENT VISIT, [facility] (chief syndrome, not 1-201 [place]. Pr ovider: EST Pain Caterina complaint) elsewhere 9 7235 [facility], classifiedLow back John, Will J, 7235 [address] painCervicalgiaLon [place] 7 235 [address] John, g term (current) is, [place], John, Caterina, use of opiate [id number] [place], analgesic , [place]. [place], [place], 618397027 tel: [phone] , [place] [id number] . tel: tel: [phone] OFFICE/OUTPAT [facility] Back Pain Postlaminectomy Apr-0 Garcia Referring IENT VISIT, [facility] (chief syndrome, not 2-201 Viry. Pr ovider: EST Pain [place] complaint) elsewhere 9 7235 [facility], classifiedRadiculo John, Will J, 7235 [address] shane, lumbar [place] 7235 O [facility] John, regionCervicalgiaL is, [place], John, [place], beryl term (current) [id number] [place], use of opiate , [place]. [place], [place], 368960653 analgesic tel: [phone] , [place] [id number] . tel: tel:[phone] OFFICE/OUTPAT [facility] Back Pain Chronic pain Nov- Mario Referring IENT VISIT, [facility] (chief syndromeRadiculopa 3-201 [place] . Provider: EST Pain Caterina complaint) thy, lumbar 9 7235 [facility], regionLow back John, Will J, 7235 [address] painLong term [place] 7235 O hms John, (current) use of is, [place], John, [place], opiate analgesic [id number] [place], , [place]. [place], [place], 278977038 tel: [phone] , [place] [id number] . tel: tel:[phone] [facility] Postlaminectomy Nov- Mario Refe [facility]3] Pain Clinic syndrome, not 3-201 [place]. Provid er: Pain [place] elsewhere 9 7235 [facility], classified Endy Lopez, 7235 [address] [place] 7235 [address] John, is, [place], Caterina Lopez, [id number] [place], , [place]. [place], [place], 228384561 tel: [phone] , [place] [id number] . tel: tel:[phone] OFFICE/OUTPAT [facility] Back Pain Radiculopathy, Kanga s Referring IENT VISIT, [facility] (chief lumbar regionLow [place]. Provider: EST Pain Caterina complaint) back painLong term 8 7235 [facility], (current) use of Endy Lopez, 7235 [facility] opiate analgesic [place] 723 5 [address] John, is, [place], Caterina Lopez, [id number] [place], , [place]. [place], [place], 029687587 tel: [phone] , [place] [id number] . tel: tel:[phone] [facility] Postlaminectomy Sep-0 Mario Refe [facility]3] Pain Clinic syndrome, not 1-201 [place]. Provid er: Pain [place] elsewhere 8 7235 [facility], classified Endy Lopez, 7235 [address] [place] 7235 [address] John, is, [place], Caterina Lopez, [id number] [place], , [place]. [place], [place], 259618806 tel: [phone] , [place] [id number] . tel: tel:[phone] [facility] Postlaminectomy Aug- Garcia Refe [facility]3] Surgery syndrome, not 5-201 Viry. Provider: Pain Center elsewhere 8 7235 [facility], classified Endy Lopez, 7235 [address] [place] 7235 [address] John, is, [place], Caterina Lopez, [id number] [place], , [place]. [place], [place], 725481784 tel: [phone] , [place] [id number] . tel: tel: [phone] OFFICE/OUTPAT [facility] Back Pain Postlaminectomy Oct-2 Gonzalez as Referring IENT VISIT, [facility] (chief syndrome, not 2-201 [place]. Pr ovider: EST Pain Caterina complaint) elsewhere 8 7235 [facility], classifiedRadiculo John Will J, 7235 [address] shane, lumbar [place] 7235 O hms John, regionLow back is, [place], John, Caterina, pain [id number] [place], , [place]. [place], [place], 391585155 tel: [phone] , [place] [id number] . tel: tel: [phone] [facility] Postlaminectomy Oct-0 Mario Refe [facility]3] Pain Clinic syndrome, not 1-201 [place]. Provid er: Pain [place] elsewhere 8 7235 [facility], classifiedLow back John, Will J, 7235 [address] pain [place] 7235 [address] John, is, [place], Chandana Lopeza, [id number] [place], , [place]. [place], [place], 970575827 tel: [phone] , [place] [id number] . tel: tel: [phone] [facility] Postlaminectomy Sep-2 Garcia Refe [facility]3] Surgery syndrome, not 7-201 Viry. Provider: Pain Center elsewhere 8 7235 [facility], classified John, Will J, 7235 [address] [place] 7235 [address] John, is, [place], Caterina Lopez, [id number] [place], , [place]. [place], [place], 007932986 tel: [phone] , [place] [id number] . tel: tel:[phone] OFFICE/OUTPAT [facility] Back Pain Chronic pain Sep-1 Mario Referring IENT VISIT, [facility] (chief syndromePostlamine [place] . Provider: EST Pain [place] complaint) ctomy syndrome, 8 7235 [address] [facility], not elsewhere Endy Lopez, 7235 [address] classifiedRadiculo [place] 7 235 [address] John, shane, lumbar is, [place], John, [place], regionLow back [id number] [place], pain , [place]. [place], [place], 209089780 tel: [phone] , [place] [id number] . tel: tel:[phone] OFFICE/OUTPAT [facility] Back Pain Chronic pain Sep-0 Mario Referring IENT VISIT, [facility] (chief syndromeCervicalgi [place] . Provider: EST Pain [place] complaint) aPostlaminectomy 8 7235 [address] [facility], syndrome, not John, Endy J, 7235 [address] elsewhere [place] 7235 [address] John, classifiedLow back is, [place], John, [place], painRadiculopathy, [id number] [place], lumbar region , [place]. [place], [place], 175786127 tel: [phone] , [place] [id number] . tel: tel: [phone] OFFICE/OUTPAT [facility] Back Pain Postlaminectomy Aug-0 Gonzalez as Referring IENT VISIT, [facility] (chief syndrome, not Rosetta. Pr ovider: EST Pain [place] complaint) elsewhere 8 7235 [address] [facility], classifiedChronic Endy Lopez J , 7235 [address] pain [place] 7235 [address] John, syndromeCervicalgi is, [place], John, Caterina, aLow back pain [id number] [place], , [place]. [place], [place], 151603002 tel: [phone] , [place] [id number] . tel: tel: [phone] OFFICE/OUTPAT [facility] Back Pain Chronic pain Kanu-0 Mario Referring IENT VISIT, [facility] (chief syndromeCervicalgi 6 [place] . Provider: EST Pain Caterina complaint) aLow back pain 8 7235 [place] [facility], John, Endy J, 7235 [address] [place] 7235 [address] John, is, [place], Chandana Lopeza, [id number] [place], , [place]. [place], [place], 413157829 tel: [phone] , [place] [id number] . tel: tel:[phone] OFFICE/OUTPAT [facility] Back Pain CervicalgiaChronic Apr-1 K angas Referring IENT VISIT, [facility] (chief pain syndromeLow 3-201 [place]. Provider: EST Pain Caterina complaint) back painLumbago 8 7235 [address] [facility], with sciatica, John, Endy J, 7235 [address] left [place] 7235 Oh[place] John, sidePostlaminectom is, [place], John, Caterina, y syndrome, not [id number] [place], elsewhere , [place]. [place], [place], 940224819 classifiedLong tel:43 , [place] term (current) use [id number] . tel: of opiate tel: [phone] analgesic [phone] OFFICE/OUTPAT [facility] Back Pain CervicalgiaChronic Apr-0 K angas Referring IENT VISIT, [facility] (chief pain syndromeLow 6-201 [place]etta. Provider: EST Pain [place] complaint) back 8 7235 [facility], painPostlaminectom Endy Lopez J, 7235 [address] y syndrome, not [place] 7235 [address] John, elsewhere is, [place], John, [place], classified [id number] [place], , [place]. [place], [place], 549682711 tel: [phone] , US [id number] . tel: tel:[phone] OFFICE/OUTPAT [facility] Back Pain CervicalgiaChronic Feb-0 K angas Referring IENT VISIT, [facility] (chief pain syndromeLow 6-201 [place]. Provider: EST Pain Caterina complaint) back 8 7235 [facility], painPostlaminectom John, Endy J, 7235 [address] y syndrome, not [place] 7235 [address] John, elsewhere is, [place], John Caterina, classified [id number] [place], , [place]. [place], [place], 598296223 tel: [phone] , [place] [id number] . tel: tel: [phone] OFFICE/OUTPAT [facility] Back Pain CervicalgiaChronic K angas Referring IENT VISIT, [facility] (chief pain syndromeLow 8-201 [place]. Provider: EST Pain Caterina complaint) back 7 7235 [facility], painPostlaminectom Endy Lopez, 7235 [address] y syndrome, not [place] 7235 [facility] John, elsewhere is, [place], Caterina Lopez, classified [id number] [place], , [place]. [place], [place], 134517191 tel:[phone] , [place] [id number] . tel: tel: [phone] OFFICE/OUTPAT [facility] Back Pain CervicalgiaLow Kanga s Referring IENT VISIT, [facility] (chief back 0-201 [place]. Provider : EST Pain [place] complaint) painPostlaminectom 7 35 [facility], y syndrome, not John, Will J, 7235 [address] elsewhere [place] 7235 [facility] John, classified is, [place], Chandana Lopeza, [id number] [place], , [place]. [place], [place], 014226604 tel:[phone] , US [id number] . tel: tel: [phone] OFFICE/OUTMDT [facility] Back Pain Postlaminectomy Gonzalez as Referring IENT VISIT, [facility] (chief syndrome, not 9-201 [place]. Pr ovider: EST Pain Caterina complaint) elsewhere 7 7235 [facility], classifiedLow back John, Will J, 7235 [address] painCervicalgia [place] 7235 [facility] John, is, [place], Chandana Lopeza, [id number] [place], , [place]. [place], [place], 711294308 tel:[phone] , [place] [id number] . tel: tel: [phone] OFFICE/OUTPAT [facility] Back Pain Low back May- Mario Ref erring IENT VISIT, [facility] (chief painCervicalgiaChr [place] . Provider: EST Pain Caterina complaint) onic pain 7 7235 [facility], syndromePostlamine John, Will J, 7235 [address] ctomy syndrome, [place] 7235 [address] John, not elsewhere is, [place]John [place], classified [id number] [place], , [place]. [place], [place], 250457679 tel: [phone] , [place] [id number] . tel: tel: [phone] OFFICE/OUTPAT [facility] Back Pain Low back March-3 Mario Ref erring IENT VISIT, [facility] (chief painCervicalgiaChr [facility] . Provider: EST Pain [place] complaint) onic pain 7 7235 [facility], syndromePostlamine John, Will J, 7235 [address] ctomy syndrome, [place] 7235 [address] John, not elsewhere is, [place]John [place], classified [id number] [place], , [place]. [place], [place], 476419627 tel: [phone] , [place] [id number] . tel: tel: [phone] OFFICE/OUTPAT [facility] Back Pain Low back March-0 Mario Ref erring IENT VISIT, [facility] (chief painCervicalgiaChr [facility] . Provider: EST Pain Caterina complaint) onic pain syndrome 7 7235 [facility], John, Will J, 7235 [address] [place] 7235 [address] John, is, [place], Caterina Lopez, [id number] [place], , [place]. [place], [place], 642592972 tel: [phone] , [place] [id number] . tel: tel: [phone] OFFICE/OUTPAT [facility] Back Pain CervicalgiaChronic Apr-0 K angas Referring IENT VISIT, [facility] (chief pain syndromeLow [place]. Provider: EST Pain Caterina complaint) back 7 7235 [facility], painPostlaminectom Endy Lopez, 7235 [address] y syndrome, not [place] 7235 [address] John, elsewhere is, [place], Caterina Lopez, classified [id number] [place], , [place]. [place], [place], 980087559 tel:+ [phone] , [place] [id number] . tel: tel:[phone] OFFICE/OUTPAT [facility] Back Pain Low back Jan- Mario Ref erring IENT VISIT, [facility] (chief painCervicalgiaChr [place] . Provider: EST Pain Caterina complaint) onic pain 7 7235 [facility], syndromePostlamine Enyd Lopez, 7235 [address] ctomy syndrome, [place] 7235 [address] John, not elsewhere is, [place], Caterina Lopez, classified [id number] [place], , [place]. [place], [place], 826287472 tel: [phone] , [place] [id number] . tel: tel:[phone] OFFICE/OUTPAT [facility] Back Pain CervicalgiaLow Dec- Kanga s Referring IENT VISIT, [facility] (chief back painChronic [place]. Provider: EST Pain Caterina complaint) pain syndrome 7 35 [facility], Endy Lopez, 7235 [address] [place] 7235 [address] John, is, [place], Caterina Lopez, [id number] [place], , [place]. [place], [place], 481721791 tel: [phone] , US [id number] . tel: tel:[phone] OFFICE/OUTPAT [facility] Back Pain Low back Abilio- Mario Ref erring IENT VISIT, [facility] (chief painCervicalgiaChr [place] . Provider: EST Pain Caterina complaint) onic pain syndrome 7 7235 [facility], John, Will J, 7235 [address] [place] 7235 [address] John, is, [place], John, Caterina, [id number] [place], , [place]. [place], [place], 504678317 tel: [phone] , [place] [id number] . tel: tel:[phone] OFFICE/OUTPAT [facility] Back Pain Low back Dec-0 Mario Ref erring IENT VISIT, [facility] (chief painCervicalgiaPos 2201 [place] . Provider: EST Pain Caterina complaint) tlaminectomy 6 7235 [facility], syndrome, not John, Will J, 7235 [address] elsewhere [place] 7235 [address] John, classifiedChronic is, [place], Caterina Lopez, pain syndrome [id number] Janae MATHEWS, , [place]. [place], [place], 727264778 tel:[phone] , [place] [id number] . tel: tel: [phone] OFFICE/OUTPAT [facility] Back Pain Low back Nov-0 Mario Ref erring IENT VISIT, [facility] (chief painCervicalgiaPos 1- [place] . Provider: EST Pain [place] complaint) tlaminectomy 6 7235 [facility], syndrome, not John, Will J, 7235 [address] elsewhere [place] 7235 [address] John, classified is, [place], John Caterina, [id number] [place], , [place]. [place], [place], 715408474 tel:[phone] , [place] [id number] . tel: tel: [phone] OFFICE/OUTPAT [facility] Back Pain Lumbago with Aug- Van Referring IENT VISIT, [facility] (chief sciatica, left 4-201 [place] Provider: EST Pain [place] complaint) sideLong term 6 Kera. [facility], (current) use of 7235 [address] Will J, 7235 [address] opiate John, 7235 [address] John, analgesicCervicalg [place] Kalin e, Caterina, ia is, [place], [place], 708652720 s, [place], [address] , [place]. [address] , [place] tel: . tel: [phone] tel: [phone] OFFICE/OUTPAT [facility] Back Pain CervicalgiaLow Kanga s Referring IENT VISIT, [facility] (chief back [place]. Provider : EST Pain Caterina complaint) painPostlaminectom 6 7235 [facility], y syndrome, not John, Will J, 7235 [address] elsewhere [place] 7235 [address] John, classified is, [place], John, Caterina, [id number] [place], , [place]. [place], [place], 145229730 tel:[phone] , [place] [id number] . tel: tel: [phone] OFFICE/OUTPAT [facility] Back Pain Low back Mario Ref erring IENT VISIT, [facility] (chief painCervicalgiaPos [place] . Provider: EST Pain Caterina complaint) tlaminectomy 6 7235 [facility], syndrome, not John, Will J, 7235 [address] elsewhere [place] 7235 [address] John, classified is, [place], John, [place], [id number] [place], , [place]. [place], [place], 721259369 tel:[phone] , [place] [id number] . tel: tel: [phone] OFFICE/OUTPAT [facility] Back Pain CervicalgiaLow Kanga s Referring IENT VISIT, [facility] (chief back painLumbago [place]. Provider: EST Pain [place] complaint) with sciatica, 6 7235 [facility], left side John, Will J, 7235 [address] [place] 7235 [address] John, is, [place], John, [place], [id number] [place], , [place]. [place], [place], 941070708 tel:[phone] , [place] [id number] . tel: tel: [phone] OFFICE/OUTPAT [facility] Back Pain Low back Kanu-1 Mario Ref erring IENT VISIT, [facility] (chief painCervicalgia 4-201 [place]. Provider: EST Pain Caterina complaint) [address] [facility], Endy Lopez, [address] [place] [address] [place], [place], [place], JohnChandanaa, [id number] [place], , [place]. [place], [place], [id number] tel:[phone] , [place] [id number] . tel: tel:[phone] OFFICE/OUTPAT [facility] Back Pain CervicalgiaLow March- Kanga s Referring IENT VISIT, [facility] (chief back painLumbago 0-201 [place]. Provider: EST Pain [place] complaint) with sciatica, [address] [facility], left John, Will J, [address] sidePostlaminectom [place] [address] [place], y syndrome, not [place], [place], John, Caterina, elsewhere [id number] [place], classified , [place]. [place], [place], [id number] tel: [phone] , [place] [id number] . tel: tel:[phone] OFFICE/OUTPAT [facility] Back Pain Low back Apr-2 Mario Ref erring IENT VISIT, [facility] (chief painCervicalgiaLum 2-201 [place] . Provider: EST Pain Caterina complaint) bago [facility], sciatica, left Endy Lopez J, [address] [place] [address] [place], [place], Chandana Lopeza, [id number] [place], , [place], [place], [id number] tel: [phone] , [place] [id number] . tel: tel:[phone] OFFICE/OUTPAT [facility] Back Pain Low back Apr-0 Mario Ref erring IENT VISIT, [facility] (chief painCervicalgia 6-201 [place]. Provider: EST Pain [place] complaint) 6 [facility], Endy Lopez J, [address] [place] [address] [place], [place], JohnCaterina, [id number] [place], , [place], [place], [id number] tel: [phone] , [place] [id number] . tel: tel: [phone] OFFICE/OUTPAT [facility] Low back Mar-2 Mario Ref erring IENT VISIT, [facility] (chief painCervicalgiaLum 5-201 [place] . Provider: NEW Pain [place] complaint) bago with 6 [address] [facility], sciatica, left John, Will J, [address] [facility] sideLong term [place] [address] [place], (current) use of [place], [place], [place], Caterina, opiate [id number] [place], analgesicPostlamin , [place]. [place], [place] , [id number] ectomy syndrome, tel: [phone] , [place] not elsewhere [id number] . tel: classified tel: [phone] Family History Family Member Type Diagnosis Age At Onset Mother Problem (finding) back pain Payers Payer name Insurance type Covered libertarian ID Authorization(s ) Medicare [id number] [facility] [id number] Social History Type Description Quantity Date Captured [...] Order Annual PT. Due on due Goal LEATHER GRAINER Paperwork. Due on due Goal TRACER BULLET CHARGING MACHINE OPERATOR Scanned. Due on due Goal Height. Due on due Goal Unhealthy drug use screening. Du e on due Goal Review Allergy List. Due on due Goal Creatinine. Due on d ue Goal ALT (SGPT). Due on d ue Goal HPV. Due on due Goal Update Social History. Due on Goal Medication Reconciliation. Due o n due Goal PHQ-9. Due on due Goal CT-Colonography. Due on due Goal FIT-DNA. Due on due Goal FIT. Due on due Goal Zoster vaccine (1st). Due on due Goal Weight. Due on due Goal Hepatitis C screening. Due on Goal TRACER BULLET CHARGING MACHINE OPERATOR Scanned. Due on due Goal Unhealthy drug [...] due Goal FIT. Due on due Goal LEATHER GRAINER Paperwork. Due on due Goal Review Allergy List. Due on due Goal Tobacco Use. Due on due Goal UDT. Due on due Goal HPV. Due on due Goal AST (SGOT). Due on d ue Goal Hepatitis C screening. Due on Goal Lipid panel. Due on due Goal Zoster vaccine (1st). Due on due Goal LEATHER GRAINER Paperwork. Due on 2 due Goal ALT (SGPT). Due on d ue Goal PHQ-9. Due on due Goal CT-Colonography. Due on due Goal Tobacco Use. Due on due Goal Zoster vaccine (1st). Due on due Goal Order Annual PT. Due on due Goal Unhealthy drug use screening. on due Goal Hepatitis C screening. Due on Goal Lipid panel. Due on due Goal Medication Reconciliation. Due o n due Goal Update Social History. Due on Goal Weight. Due on due Goal OARS. Due on due Goal AST (SGOT). Due on d ue Goal FIT. Due on due Goal Height. Due on due Goal HPV. Due on due Goal Review Allergy List. Due on due Goal Creatinine. Due on d ue Goal FIT-DNA. Due on due Goal UDT. Due on due Goal TRACER BULLET CHARGING MACHINE OPERATOR Scanned. Due on due Goal Medication Reconciliation. Due o n due Goal LEATHER GRAINER Paperwork. Due on due Goal ALT (SGPT). Due on d ue Goal Unhealthy drug use screening. on due Goal FIT-DNA. Due on due Goal Creatinine. Due on d ue Goal Lipid panel. Due on due Goal TRACER BULLET CHARGING MACHINE OPERATOR Scanned. Due on due Goal Tobacco Use. Due on due Goal Update Social History. Due on Goal CT-Colonography. Due on due Goal OARS. Due on due Goal Zoster vaccine (1st). Due on due Goal AST (SGOT). Due on d ue Goal Review Allergy List. Due on due Goal FIT. Due on due Goal Height. Due on due Goal Hepatitis C screening. Due on Goal Weight. Due on due Goal UDT. Due on due Goal PHQ-9. Due on due Goal Order Annual PT. Due on due Goal HPV. Due on due Goal Update Social History. Due on Goal LEATHER GRAINER Paperwork. Due on due Goal TRACER BULLET CHARGING MACHINE OPERATOR Scanned. Due on due Goal AST (SGOT). [...] Goal Update Social History. Due on Goal LEATHER GRAINER Paperwork. Due on due Goal UDT. Due on due Goal TRACER BULLET CHARGING MACHINE OPERATOR Scanned. Due on due Goal AST (SGOT). Due on d ue Goal OARS. Due on due Goal Height. Due on due Goal ALT (SGPT). Due on d ue Goal Order Annual PT. Due on due Goal Review Allergy List. Due on due Goal PHQ-9. Due on due Goal Tobacco Use. Due on due Goal Medication Reconciliation. Due o n due Goal Weight. Due on due Goal Medication Reconciliation. Due o n due Goal PHQ-9. Due on due Goal LEATHER GRAINER Paperwork. Due on due Goal UDT. Due on due Goal AST (SGOT). Due on d ue Goal TRACER BULLET CHARGING MACHINE OPERATOR Scanned. Due on due Goal OARS. Due [...] due Goal PHQ-9. Due on due Goal LEATHER GRAINER Paperwork. Due on due Goal Order Annual PT. Due on due Goal OARS. Due on due Goal TRACER BULLET CHARGING MACHINE OPERATOR Scanned. Due on due Goal ALT (SGPT). Due on d ue Goal AST (SGOT). Due on d ue Goal UDT. Due on due Goal Tobacco Use. Due on due Goal Medication Reconciliation. Due o n due Goal OARS. Due on due Goal TRACER BULLET CHARGING MACHINE OPERATOR Scanned. Due on due Goal Update Social History. Due on Goal AST (SGOT). Due on d ue Goal Height. Due on due Goal Weight. Due on due Goal Order Annual PT. Due on due Goal ALT (SGPT). Due on d ue Goal PHQ-9. Due on due Goal UDT. Due on due Goal Review Allergy List. Due on due Goal LEATHER GRAINER Paperwork. Due on due Goal AST (SGOT). Due on d ue Goal Review Allergy List. Due on due Goal ALT (SGPT). Due on d ue Goal UDT. Due on due Goal Tobacco Use. Due on due Goal Order Annual PT. Due on due Goal TRACER BULLET CHARGING MACHINE OPERATOR Scanned. Due on due Goal Update Social History. Due on Goal Medication Reconciliation. Due o n due Goal OARS. Due on due Goal Height. Due on due Goal Weight. Due on due Goal PHQ-9. Due on due Goal LEATHER GRAINER Paperwork. Due on due Goal Order Annual PT. Due on due Goal OARS. Due on due Goal Update Social History. Due on du e Goal AST (SGOT). Due on d ue Goal UDT. Due on due Goal Height. Due on due Goal ALT (SGPT). Due on d ue Goal LEATHER GRAINER Paperwork. Due on due Goal TRACER BULLET CHARGING MACHINE OPERATOR Scanned. Due on due Goal PHQ-9. Due [...] Social History. Due on du e Goal Tobacco Use. Due on due Goal TRACER BULLET CHARGING MACHINE OPERATOR Scanned. Due on due Goal LEATHER GRAINER Paperwork. Due on due Goal AST (SGOT). Due on d ue Goal TRACER BULLET CHARGING MACHINE OPERATOR Scanned. Due on due Goal Order Annual PT. Due on due Goal Tobacco Use. Due on due Goal Medication Reconciliation. Due o n due Goal Review Allergy List. Due on due Goal UDT. Due on due Goal Weight. Due on due Goal ALT (SGPT). Due on d ue Goal PHQ-9. Due on due Goal Height. Due on due Goal LEATHER GRAINER Paperwork. Due on due Goal Update Social History. Due on Goal OARS. Due on due Goal Weight. Due on due Goal AST (SGOT). Due on d ue Goal Medication Reconciliation. Due o n due Goal ALT (SGPT). Due on d ue Goal Review Allergy List. Due on due Goal UDT. Due on due Goal Update Social History. Due on e Goal TRACER BULLET CHARGING MACHINE OPERATOR Scanned. Due on due Goal PHQ-9. Due on due Goal OARS. Due on due Goal Tobacco Use. Due on due Goal LEATHER GRAINER Paperwork. Due on due Goal Height. Due on due Goal Order Annual PT. Due on due Goal Tobacco cessation counseling com pleted Goal Review Allergy List. Due on due Goal LEATHER GRAINER Paperwork. Due on due Goal OARS. Due on due Goal Medication Reconciliation. Due o n due Goal Weight. Due on due Goal UDT. Due on due Goal Height. Due on due Goal Tobacco Use. Due on due Goal AST (SGOT). Due on d ue Goal Order Annual PT. Due on due Goal TRACER BULLET CHARGING MACHINE OPERATOR Scanned. Due on due Goal Update Social History. Due on e Goal PHQ-9. Due on due Goal ALT (SGPT). Due on d ue Goal UDT. Due on due Goal Medication Reconciliation. Due o n due Goal LEATHER GRAINER Paperwork. Due on due Goal Update Social History. Due on e Goal PHQ-9. Due on due Goal Weight. Due on due Goal ALT (SGPT). Due on d ue Goal Review Allergy List. Due on due Goal AST (SGOT). Due on d ue Goal Order Annual PT. Due on due Goal Tobacco Use. Due on due Goal OARS. Due on due Goal Height. Due on due Goal TRACER BULLET CHARGING MACHINE OPERATOR Scanned. Due on due Goal AST (SGOT). Due on d ue Goal TRACER BULLET CHARGING MACHINE OPERATOR Scanned. Due on due Goal LEATHER GRAINER Paperwork. Due on due Goal ALT (SGPT). Due on d ue Goal UDT. Due on due Goal Weight. Due on due Goal PHQ-9. Due on due Goal Order Annual PT. Due on due Goal Update Social History. Due on Goal OARS. Due on due Goal Medication Reconciliation. Due o n due Goal Review Allergy List. Due on due Goal Tobacco Use. Due on due Goal Height. Due on due Goal OARS. Due on due Goal Update Social History. Due on du e Goal Review Allergy List. Due on due Goal ALT (SGPT). Due on d ue Goal LEATHER GRAINER Paperwork. Due on due Goal UDT. Due on due Goal AST (SGOT). Due on d ue Goal Medication Reconciliation. Due o n due Goal Weight. Due on due Goal Height. Due on due Goal PHQ-9. Due on due Goal TRACER BULLET CHARGING MACHINE OPERATOR Scanned. Due on due Goal Tobacco Use. Due on due Goal Order Annual PT. Due on 021 due Goal Tobacco cessation counseling com pleted Goal Tobacco cessation counseling com pleted Appointment Angie Mosquera BOOKED Appointment Angie Mosquera BOOKED Appointment Angie Mosquera BOOKED Future Order: Lab Order URINE DRUG CONFIRMATION (3000), Ordered Ordered on: Future Order: Lab Order Drug Test Def 22+ [address] (G0483), Ordered Ordered on: Future Order: Lab Order COMPLIANCE DRUG ANALYSIS , URINE, WITH Ordered MED REPORT ([id number]), Ordered on: Future Order: Lab Order Drug Test Def 22+ [address] (G0483), Ordered Ordered on: Future Order: Lab Order Drug Test Def 22+ [address] (G0483), Ordered Ordered on: Future Order: Lab Order COMPLIANCE DRUG ANALYSIS , URINE, WITH Ordered MED REPORT ([id number]), Ordered on: Future Order: Lab Order MRSA/MSSA Screening ([id number]), Ordered Ordered on: Future Order: Lab Order COMPLIANCE DRUG ANALYSIS , URINE, WITH Ordered MED REPORT ([id number]), Ordered on: History Of Present Illness Encounter [...] her L sydni johnathan on 12/30/21 with [facility] in order for infection to clear. Additional [...] a re aggravated by ascending stairs, bending, ejramie cending stairs, lifting, lying/rest, running, sitting, standing, [...] her L sydni ulder on 12/30/21 with [facility] in order for infection to clear. Additional [...] heat, ic e, pain meds/drugs and TENS. Comments: Angie pre sents for a follow [...] to her L shoulder on 12/30/21 with [facility] in order for infection to clear. Additional surgery scheduled completed 02/26/22. Sh e states this went well and will be following up with surgeon next week. Participates in HEP as able. Ongoing relief with SCS and medical [place] abis.No further questions or concerns. Mar-30-2022 Back Pain Duration: chronic. T he problem [...] her L sydni ulder on 12/30/21 with [facility] in order for infection to clear. Additional [...] to her L shoulder on 12/30/21 with [facility] in order for infection to clear. Additional [...] or hardware removal surgery on 12/30/21 with [facility] in order for infection to clear. Will [...] is scheduled for hardware removal [place] with [facility] in order for infection to ca ar. [...] for hardware removal surgery in December with [facility] in order for in fection to clear. [...] Typical flares with weather fluctuations. Following with yuriy lopez as needed. Following with [facility] regarding elevated L shoulder/arm pain and notes [...] abis.No further questions or concerns. Back Pain (comments) [...] ic e and pain meds/drugs. Back Pain Severity level [...] will likely be starting P T after [place]. Typical flares with colder w eather. Participates [...] further questions or concern s. Back Pain Onset: gradual witho ut injury. [...] de los santos ing positions. Back Pain Severity level is 7. Duration: [...] 05/22.No further questions or concerns. Back Pain (comments) [...] wn, pain meds/drugs and rest. Back Pain Severity level is 7. Duration: chronic. The problem is worsening . It occurs persistently. Location of pain is upper back, middle back and lower back. Pain is radiated to the right calf and right thigh.The patient describes the pain as an ache. Symptoms ar e aggravated by daily activities. Symptoms are relieved by heat, ice and pain meds/drugs. Back Pain (comments) Patient is here for [...] res. No other concerns today. Back Pain (comments) Angie presents for follow [...] L side weakness -- was treated by [facility]. Was put on Warfarin, unsure [...] and enroll ed in a program through [facility]. She also not es of increasing symptoms [...] medication regimen.No other concerns today. Back Pain (comments) Patient is here for [...] not interested in any procedures [facility] the [facility]. PT-SABAS-RF-N/ASCS-Anisa watersradha has Meds: Opioids-Currently ta kes oxycodone - MME 37.5 Neuropathics-Current ly takes Lyrica Muscle Relaxant- Currently takes Tizanidine Anti-Inflammatories- N/AMedical Cannabis-not certified Back Pain Severity level is 8. Duration: [...] wi thout SE. Angie's pain has been fluctuating sin ce last visit. Angie states the SCS has been wor jackie well, but may get it fine tunned. She is wondering if she can get a SCS for her thoracic spine. She has a pulled muscle in her neck, and she is getting numbness in her left hand. Sherri collado plans on starting PT on her neck soon and does n ot need an order. She is not interested in any pr ocedures at the moment. Will continue oxycodone f or pain relief and PT as needed, no other con cerns Back Pain Severity level is 5. Duration: [...] to refill her medications. She will call [facility] if sh e has any questions prior to the trial. No other concerns today Back Pain Severity [...] ng, rest and changing positions. Back Pain Severity [...] SE. Angie's pain has been stable since visit. Angie is here to go over [...] SE. Angie's pain has been worse since t visit. She C/o shooting pain in [...] pain meds/drugs and changing positions. Back Pain (comments) Angie is here for [...] well for her. Is interested in the [employer] after s he finishes with her current [...] rest and changing positio ns. Back Pain Severity level is 8. Duration: [...] mo re headaches. She was seen by [place] who told her she has a screw loose. She was referred to Dr. Gonzalez at [facility]. She has not heard from t hem. [...] remaining-on track. She had an injection at [facility] and it did not work very well so sh e will not be getting surgery. She reports sciatica pain and is curious about how to relieve it. She is very inquisitive about new treatments . She is having wrist surgery d/t carpal tunnel, t he first wrist being done tomorrow. She said s he will get Onida for 4-5 days maximum followi ng the [...] be completing diagnosti c injections today through [facility]. No other concerns today. [...] res t and medical marijuana. Back Pain Duration: chronic. T he problem [...] #1 Oxycodone, surplus. She [place] for her back pain. She is having an epd iural steroid injection done at [place] tomorrow. She isn't sure how well the medical cannabis is working, as her back has significantly flared -up. No other concerns today. Back Pain (comments) Angie is here toda y for follow up evaluation and medication refills r elating to her back pain. She has #8 oxycodone rem aining - on track. She continues medical [facility] and states it has been effective. [...] neck surgery. ENT referred her to an structural steel equipment erector for additional evaluation. No other concerns today. [...] back pain. She has no medication wi th her today and states she forgot them at [...] Patient completed right shou lder imaging at [facility] and reports a tear. She plans to [...] will be undergoing a Cervical Fusion with [place]. She will be following up with [facility] [...] a cervical fusion in the near f ut[facility]. She has noticed increased restlessne ss and [...] re ferred by Dr. Amna Fletcher from [facility]. Angie is here today for her initial consult regarding her back, neck and knee pain which bega n years ago and has been aggrevated from [facility]. She had a lumbar fusion in the past. She also has underwent several neck surgeri es including a cervical fusion and plans to have additional surgery done by Dr. Rodriguez at [facility]. She also has a history of Gastric [...] regul christian. She recently moved back to [place] from [place]. No ot her concerns today. Medical records:Dr. Rodriguez at [facility] - neck surgeon Dr. Amna Amdao [place] - PCP recordsPast treatmen t:SABAS - no [...] 10/27/2020. Additional hardwar e removal surgery through [facility] completed 12/30/21. Another s urgery to replace [...] of fibromyalgia. 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
--- OUTSIDE RECORDS SUMMARY | 2022-07-06 15:44 | XMS_ITS | Continuity of Care Document ---
:1965 Author Organization [facility] Address [address] [address] [place] [address] Phone Care Team Providers Name Role Phone Nilay Perry MD Unavailable Unavailable Advance Directives Directive Yes / No Effective Date File Name No Information Encounters Encounter Practice Location Reason(s) Diagnoses Date Provider Provide rs Description For Visit Copied on Encounter [facility] No Orlando FAULKNER Referring [facility] Nilay. Provider: [facility] [place] [address] [facility] [address], Fredis DILLON MD, [address], [place], [place], [facility] [address], [id number], [place], [place], [facility] [id number], [place], [address]. tel:[phone] . tel:[phone] tel:[phone] Family History Family Member Type Diagnosis Age At Onset No Information Payers Payer name Insurance type Covered republican ID Authorization(s ) [place] Medical Assistance [id number] Social History Type Description Quantity Date Captured [...]
--- OUTSIDE RECORDS SUMMARY | 2022-07-06 15:53 | XMS_ITS | Encounter Summary ---
:1965 Author Organization [facility] Address [address] [place] [address] Care Team Providers Name Role Phone Jose Holden MD Primary Care Provider [phone] Encounter Details Date Type Department Care Team Description 04/09/2019 Notes/Orders [facility] Neuroscience Jose Carias, Center Blender Conveyor Operator apy PT [address] [place] [address] [place] [address] [phone] (Wo rk) Social History Tobacco Use Types [...] CDT PHYSICAL THERAPY DISCHARGE NOTE Angie Mosquera [id number] Payor: MEDICARE / Plan: MEDICARE / Product [...] on filedocumented in this encounter Care Teams Boom Master Relationship Specialty Start Date End Date Jose Holden MD PCP - General Otolaryngology 12/14/17 [place] [address] documented as of this encounter
--- OUTSIDE RECORDS SUMMARY | 2022-07-06 15:53 | XMS_ITS | Encounter Summary ---
:1965 Author Organization [facility] Address [address] [place] [address] Care Team Providers Name Role Phone Jose Holden MD Primary Care Provider [phone] Reason for Visit Reason Comments Revisit repeat injections Occipital VS Trigger point Encounter Details Date Type Department Care Team Description 02/06/2019 Office Visit [facility], Bilateral occ ipital neuralgia (Primary Dx); [facility] My[facility]; Pain Management [address] Fibromyalgia; [address] 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 Tony Pittman MD Pain Medicine documented in this encounter Progress Notes Tony Pittman MD - 02/06/2019 2:30 PM CDT [facility] Follow-up Visit 02/06/2019 Interim history: [...] Oxycodone 5 mg Q6H - Prescribes by [facility], has been taking [...] at a pain clinic in the past. [facility] physical therapy: Past [...] ??? medical cannabis patient certified Take 1 Simms by mouth . ??? naloxone (NARCAN) 4 [...] facility-administered medications prior to visit. [place] and [place] Prescription Monitoring Program reviewed Allergies: Allergies Allergen [...] in her mother. Social history:she lives in [place], [place].she is not currently working. Smokin/2 ppd. [...] These are unchanged from previous. 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 Patient education: [...] MD Pain Medicine Physical Medicine and Rehabilitation [facility] This note created using speech-recognition [...] myelopathy documented in this encounter Care Teams Data Examination Clerk Relationship Specialty Start Date End Date Jose Holden MD PCP - General Otolaryngology 12/14/[address] [place] [id number] documented as of this encounter
--- OUTSIDE RECORDS SUMMARY | 2022-07-06 15:53 | XMS_ITS | Encounter Summary ---
:1965 Author Organization [facility] Address [address], [place] [address] Care Team Providers Name Role Phone Jose Holden MD Primary Care Provider [phone] Reason for Visit Reason Comments Revisit trigger point injections/occ ipital nerve blocks Encounter Details Date Type Department Care Team Description 03/06/2019 Office Visit [facility] Pittman, Bilateral occ ipital neuralgia (Primary Dx); [facility] Carole Bowden Myalgia; Pain Management [address] Cervical vertebral fusion; [address] [place], [place] Spondylosis of cervical princess on without [place] [address] [phone] Social History Tobacco Use Types Packs/Day Years [...] treatment plan is, please contact me via [employer] online messaging or call the office at and ask to speak to a nurse. Tony Pittman MD Pain Medicine documented in this encounter Progress Notes Tony Pittman MD - 03/06/2019 2:45 PM CDT [facility] Follow-up Visit 03/06/2019 [...] 5 mg Q6H - Prescribes by [facility], has been taking [...] a pain clinic in the past. [facility] physical therapy: Past [...] anterior cervical fusion 2016 Dr. Ihsan Brooke, [facility] past surgical history reviewed with patient. [...] ??? medical cannabis patient certified Take 1 [place] by mouth . ??? naloxone (NARCAN) 4 [...] Gain No facility-administered medications prior to visit. [place] and [place] Prescription Monitoring Program reviewed Allergies: Allergies Allergen [...] in her mother. Social history:she lives in [place], [place].she is not currently working. Smokin/2 ppd. [...] limited. Significant posterior surgical deformity of neck. Geophysical E Logger to palpation bilateral levator scapulae, splenius, trapezius [...] MD Pain Medicine Physical Medicine and Rehabilitation [facility] This note created [...] myelopathy documented in this encounter Care Teams Biological Scientist Relationship Specialty Start Date End Date Jose Holden MD PCP - General Otolaryngology 12/14/[address] [place] [address] documented as of this encounter
--- OUTSIDE RECORDS SUMMARY | 2022-07-06 15:53 | XMS_ITS | Encounter Summary ---
:1965 Author Organization [facility] Address [address], [place] [address] Care Team Providers Name Role Phone Jose Holden MD Primary Care Provider [phone] Reason for Referral Procedure/Equipment (Routine) - Closed Specialty Diagnoses / Procedures Referred By Contact Refer red To Contact Diagnoses Intractable acute post-traumatic headache Blanka Mead APRN, CN P [address] [place] [address] Referral ID Status Reason Start Date Expiration Date Visits Requ ested Visits Authorized [id number] Closed 02/16/2019 05/17/2020 1 1 Scheduling Instructions . herapies (Routine) - Closed Specialty Diagnoses / Procedures Referred By Contact Refer red To Contact Diagnoses Impairment of balance Dizziness Blanka Mead APRN, CN P [address] [place] [address] Referral ID Status Reason Start Date Expiration Date Visits Requ ested Visits Authorized [id number] Closed 02/16/2019 04/17/2019 1 1 Scheduling Instructions Your provider has recommended an appoint ment with a [facility] Physical Therapist. Please stop at the clinic check out desk for assistance with scheduling or if you prefer to call for your appointment you may call [facility] at [phone]. We suggest you call your [facility] insurance company about your coverage and benefits for this appointment. Reason for Visit Reason Comments Consult, New Patient Consult/Transfer Care (Routine) - Closed Specialty Diagnoses / Procedures Referred By Contact Refer red To Contact Diagnoses Traumatic brain injury, without loss of consciousness, initial encounter (HRC) Tony Pittman MD [address] [place] [address] Referral ID Status Reason Start Date Expiration Date Visits Requ ested Visits Authorized [id number] Closed 12/26/2018 03/26/2020 1 1 Encounter Details Date Type Department Care Team Description 02/16/2019 Office Visit [facility] Mead, Impairment of balance (Primary Dx); [facility] Blanka Coulter s; Physical Medicine NIKKY Chavez, Intractable acute post-traum atic headache [address] [facility] [place] [address] [address] [facility] [phone] [place] [address] Social History Tobacco Use Types [...] Body Mass Index 33.01 12/26/2018 1:48 PM DIRECTOR MERIT SYSTEM documented in this encounter Patient Instructions Patient [...] If you need to reschedule, please call [phone] as soon as you know you will not be able to make the appointment. If you have any questions or concerns, please call the clinic at [phone]. ?? If tests are needed, you will [...] treatment plan is please contact us at [phone] or send us a secure message via [employer]. If you need follow-up in the future, please call [phone] for an appointment. If you cannot get a time that satisfies you, please let us know what times work for you and we will do our best to accommodate you. Thank you for choosing Blanka Mead APRN, CNP and [facility] Physical Medicine and Rehabilitation. documented in this [...] ER right away. She was seen at [facility]. According to the note from [facility]: the patient fell approximately 20 hours before being seenon 11/10/2018 with a presentation of headache neck pain left shoulder pain left knee pain left hip pain out of proportion to the mechanism of injury. The patient's a 53-year-old female well-known to [facility] with multiple comorbid medical and psychosocial issues, [...] She sees Dr. Bullard with neurosurgery at [facility]. She has a past medical history of [...] anterior cervical fusion 2016 Dr. Ihsan Brooke, [facility] Family History: Family History Problem Relation [...] ??? medical cannabis patient certified Take 1 [place] by mouth . ??? naloxone (NARCAN) 4 [...] EXAM: XR CERVICAL SPINE AP/LAT UPRIGHT LOCATION: [facility] DATE/TIME: 12/26/2018 1:44 PM ?? INDICATION: Follow-up [...] able to review her head CT from [facility] as well as her cervical spine CT. Findings obtained by [facility] on 11/10/2018 showed CSF spaces within normal [...] headache documented in this encounter Care Teams Floor Technician Relationship Specialty Start Date End Date Jose Holden MD PCP - General Otolaryngology 12/14/17 [facility] [place] [address] documented as of this encounter
--- OUTSIDE RECORDS SUMMARY | 2022-07-06 15:53 | XMS_ITS | Encounter Summary ---
:1965 Author Organization [facility] Address [address] [place] [address] Care Team Providers Name Role Phone Jose Hodlen MD Primary Care Provider [phone] Reason for Visit Reason Comments Medication Request Encounter Details Date Type Department Care Team Description 12/08/2019 Telephone Careline Unknown, Physician Medication Request [address] [place], [place] [address] [place], [place] [phone] [id number] (Wo rk) Social History Tobacco Use Types [...] pain medication. Pt advised to surgeon at [facility]. STRIAL SERVICER documented in this encounter Plan of Treatment Not on filedocumented as of this encounter Visit Diagnoses Not on filedocumented in this encounter Care Teams Smokehouse Worker Relationship Specialty Start Date End Date Jose Holden MD PCP - General Otolaryngology 12/14/17 [address] [place] [address] documented as of this encounter
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
--- OUTSIDE RECORDS SUMMARY | 2022-07-06 15:53 | XMS_ITS | Encounter Summary ---
:1965 Author Organization [facility] Address [address] [place] [address] Care Team Providers Name Role Phone Jose Holden MD Primary Care Provider [phone] Encounter Details Date Type Department Care Team Description 12/26/2018 Consent for [facility], CONSENT FOR Procedure/[facility] Tony Alvarado MD PROCEDURE ent Pain Management [address] [place] [address] [phone] Social History Tobacco Use Types Packs/Day Years [...] on filedocumented in this encounter Care Teams Process Engineering Manager Relationship Specialty Start Date End Date Jose Holden MD PCP - General Otolaryngology 12/14/[address] [place] [address] documented as of this encounter
--- OUTSIDE RECORDS SUMMARY | 2022-07-06 15:53 | XMS_ITS | Encounter Summary ---
:1965 Author Organization [facility] Address [address] [place] [address] Care Team Providers Name Role Phone Jose Holden MD Primary Care Provider [phone] Encounter Details Date Type Department Care Team Description 03/06/2019 Consent for [facility] ENT Procedure/Treat [facility] Tony Alvarado MD BUPRENORPHINE ent Pain Management [address] TREATMENT [address] [place] [phone] Social History Tobacco Use Types Packs/Day Years [...] on filedocumented in this encounter Care Teams Metal Buffer Relationship Specialty Start Date End Date Jose Holdne MD PCP - General Otolaryngology 12/14/[address] [place] [address] documented as of this encounter
--- OUTSIDE RECORDS SUMMARY | 2022-07-06 15:53 | XMS_ITS | Encounter Summary ---
:1965 [facility] Address [address] [place] [address] Care Team Providers Name Role Phone Jose Holden MD Primary Care Provider [phone] Reason for Referral Procedure/Equipment (Routine) - Closed Specialty Diagnoses / Procedures Referred By Contact Refer red To Contact Diagnoses Dizziness Concussion with loss of consciousness of 30 minutes or less, subsequent encounter Alyse Carias, PT [address] [place] [address] Referral ID Status Reason Start Date Expiration Date Visits Requ ested Visits Authorized [id number] Closed 03/06/2019 06/04/2020 20 20 Scheduling Instructions . Reason for Visit Reason Comments Concussion Therapies (Routine) - Closed Specialty Diagnoses / Procedures Referred By Contact Refer red To Contact Diagnoses Impairment of balance Dizziness Blanka Mead, ORACLE DATA WAREHOUSE DEVELOPER, CN P [address] [place] [address] Referral ID Status Reason Start Date Expiration Date Visits Requ ested Visits Authorized [id number] Closed 02/16/2019 04/17/2019 1 1 Encounter Details Date Type Department Care Team Description 03/06/2019 Office Visit Alyse Bee Dizziness (Primary Dx); [facility] A, PT Concussion with loss of consciousness of 30 minutes or less, subsequent encounter Physical Therapy [address] [place] [phone] Social History Tobacco Use Types Packs/Day Years [...] impacting her status (scheduled for surgery at [facility] on 02/28/19). Tinnitus- scheduled for hearing assessment [...] ER right away. She was seen at [facility]. ?? She has a past medical [...] limited function due to PMH Lives in [place]. Independent with ADLs, driving. Current Level of Function: Currently not-employed. Lives alone in apartment. Difficulty bending down She does endorse LOS in home setting. Previous Therapy for This Condition: PT for neck (01/23/19- refaxed orders) Patient Goals: Return to previous level of function and Increased function OBJECTIVE Posture/Observations: alert, oriented, cooperative. forward head posturing. Carrying multiple bags and able to pickling grader from floor to chair without LOS. Functional [...] within her allowable cervical ROM). Access Code: [email or web address] URL: [email or web address] Date: 03/06/2019 Prepared by: Alyse Carias Exercises Standing Gaze Stabilization with Head Rotation - 1-3 reps - 30-40 seconds - 3x daily - 7x weekly Education regarding Rule of 2 -Discussed option of closer location to her home yet noted she would be able to attend at [facility]. Patient's Response to Therapy: Good Home Program [...] encounter documented in this encounter Care Teams Sail Finisher Machine Relationship Specialty Start Date End Date Jose Holden MD PCP - General Otolaryngology 12/14/17 [place] [address] documented as of this encounter
--- OUTSIDE RECORDS SUMMARY | 2022-07-06 15:53 | XMS_ITS | Encounter Summary ---
:1965 Author Organization [facility] Address [address] [place] [address] Care Team Providers Name Role Phone Jose Holden MD Primary Care Provider [phone] Encounter Details Date Type Department Care Team Description 02/06/2019 Consent for [facility] ENT Procedure/Treatm [facility] Tony Alvarado MD FOR TX/PROCEDURE ent Pain Management [address] [place] [address] [phone] Social History Tobacco Use Types Packs/Day Years [...] on filedocumented in this encounter Care Teams Bit Grinder Relationship Specialty Start Date End Date Jose Holden MD PCP - General Otolaryngology 12/14/[address] [place], [place] [phone] documented as of this encounter
--- OUTSIDE RECORDS SUMMARY | 2022-07-06 15:53 | XMS_ITS | Encounter Summary ---
:1965 Author Organization [facility] Address [address], [place] [address] Care Team Providers Name Role Phone Jose Holden MD Primary Care Provider [phone] Reason for Visit Procedure/Equipment (Routine) - Incomplete Specialty Diagnoses / Procedures Referred By Contact Refer red To Contact Diagnoses S/P cervical spinal fusion Sirisha Rankin, Procedures XR Cervical Spine AP/Lat Upright CCU NURSE, TUFTER HAND [address] [place] [address] Referral ID Status Reason Start Date Expiration Date Visits V isits Requested Authorized [id number] Incomplete 10/10/2018 01/09/2020 1 1 Encounter Details Date Type Department Care Team Description 12/26/2018 [facility]illary [facility] Sneha Maher, S/P cervi france Procedure [facility] Sirisha Celaya, CCU NURSE, spinal fusion Radiology TUFTER HAND [address] [place] [address] [place], [place] [phone] [facility] Social History Tobacco Use Types Packs/Day [...] spin al Results for this AP/LAT UPRIGHT SOLAR ENERGY SPECIALIST fusion procedure are in the results section. documented in this encounter Results XR Cervical Spine AP/Lat Upright (12/26/2018 1:44 PM SOLAR ENERGY SPECIALIST) Anatomical Region Laterality Modality Spine, C-Spine, Neck Computed Radiograph y Specimen (Source) Anatomical Collection Method Collection Time Re ceived Time Location / / Volume Laterality 12/26/2018 1:44 PM SOLAR ENERGY SPECIALIST Narrative 12/26/2018 3:41 PM SOLAR ENERGY SPECIALIST EXAM: XR CERVICAL SPINE AP/LAT UPRIGHT [facility]ATION[facility] DATE/TIME: 12/26/2018 1:44 PM INDICATION: Follow-up [...] EXAM: XR CERVICAL SPINE AP/LAT UPRIGHT LOCATION: [facility] DATE/TIME: 12/26/2018 1:44 PM INDICATION: Follow-up [...] C1-2 level on lateral view. Sirisha Maher CCU NURSE, TUFTER HAND RAD GD documented in this encounter Visit Diagnoses Diagnosis S/P cervical spinal fusion Arthrodesis status documented in this encounter Care Teams Training Systems Officer Relationship Specialty Start Date End Date Jose Holden MD PCP - General Otolaryngology 12/14/17 [place] [address] documented as of this encounter
--- OUTSIDE RECORDS SUMMARY | 2022-07-06 15:54 | XMS_ITS | Encounter Summary ---
:1965 Author Organization [facility] Address [address], [place] [address] Care Team Providers Name Role Phone Jose Holden MD Primary Care Provider [phone] Reason for Visit Reason Comments APPOINTMENT REQUEST Encounter Details Date Type Department Care Team Description 11/13/2018 Telephone [facility] Pete Gonzalez MD APPOINTMENT REQUEST [facility] [address] [place], [place] [address]E Neurosurgery/Ortho [address] [place], [place] [address] [address] [place] [address] [phone] Social History Tobacco Use Types Packs/Day Years [...] Jana Marcos - 11/16/2018 3:46 PM CST Mold Capper Helper spoke to the pt and helped schedule an appt with Dr. Gonzalez on 12/26/17 at 1:40PM. Pt was in agreement of date, time and location. Jana Marcos 11/16/2018, 3:46 PM HIATRIC THERAPIST Chava Simon RN - 11/16/2018 1:15 PM CST Per Sirisha Rolandson Gunnar, METROLOGY TECHNICIAN: patient can follow up with Dr. Gonzalez with repeat upright cervical XRs. Rachid: please call patient and assist in scheduling her for an appointment with Dr. Gonzalez at next available with XR Chava Simon RN 11/16/2018, 1:20 PM HIATRIC THERAPIST Chava Simon RN - 11/16/2018 11:15 AM [...] Walker RN - 11/15/2018 11:21 AM CST [facility]- still have not received CD from [facility]. If patient calls back, please let her [...] plan? Chava Simon RN 11/13/2018, 9:12 AM HIATRIC THERAPIST Michael Cruz - 11/13/2018 8:23 AM CST Patient called in requesting for an appointment with Dr. Gonzalez himself only and not APPs. She states she fell on ice last week 11/09/18 and went to [facility] to be evaluated. She reports [...] Gonzalez to ensure everything is well as [facility] is not theones who did surgery on her and cannot compare this to before and after surgery. Mold Capper Helper called [facility] and spoke with Mandy in the film room. They are not able to push imaging but they can send a CD. Address was provided for her of mail stop [id number] [facility] Attn: Dr. Gonzalez. She states the report will also be included in the CD. She then transferred me to Medical Records. Mold Capper Helper spoke with Shauna who states patient will need to sign an CODI to obtain ED note from 11/09/18 to be sent to us as they are not affiliated with [facility]. Mold Capper Helper reached patient and relayed she would need [...] being sent. Michael Cruz 11/13/2018, 8:43 AM HIATRIC THERAPIST documented in this encounter Plan of Treatment Not on filedocumented as of this encounter Visit Diagnoses Diagnosis S/P cervical spinal fusion - Primary Arthrodesis status documented in this encounter Care Teams Tankroom Worker Relationship Specialty Start Date End Date Jose Holden MD PCP - General Otolaryngology 12/14/17 [place] [address] documented as of this encounter
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
--- OUTSIDE RECORDS SUMMARY | 2022-07-06 15:54 | XMS_ITS | Encounter Summary ---
:1965 Author Organization [facility] Address [address], [place] [address] Care Team Providers Name Role Phone Jose Holden MD Primary Care Provider [phone] Reason for Visit Reason Comments QUESTIONS, GENERAL Encounter Details Date Type Department Care Team Description 02/24/2018 Telephone [facility] Pete Gonzalez MD QUESTIONS, GENERAL [facility] [address] [facility] [address] Neurosurgery/Ortho [address] [place], [place] [address] [address] [place] [address] [phone] Social History Tobacco Use Types Packs/Day Years [...] currently doing PT which was ordered through [facility] for her shoulder. She is worried [...] on filedocumented in this encounter Care Teams Hose Seamer Relationship Specialty Start Date End Date Jose Holden MD PCP - General Otolaryngology 12/14/[address] [facility] [place] [address] documented as of this encounter
--- OUTSIDE RECORDS SUMMARY | 2022-07-06 15:54 | XMS_ITS | Encounter Summary ---
:1965 [facility] Address [address] [place] [address] Care Team Providers Name Role Phone Jose Holden MD Primary Care Provider [phone] Encounter Details Date Type Department Care Team [...] on filedocumented in this encounter Care Teams Master Of Ceremonies Relationship Specialty Start Date End Date Jose Holden MD PCP - General Otolaryngology 12/14/17 [address] [place] [address] documented as of this encounter
--- OUTSIDE RECORDS SUMMARY | 2022-07-06 15:54 | XMS_ITS | Encounter Summary ---
:1965 Author Organization [facility] Address [address], [place] [address] Care Team Providers Name Role Phone Jose Holden MD Primary Care Provider [phone] Reason for Visit Reason Comments Medication Check In Encounter Details Date Type Department Care Team Description 03/07/2018 Telephone [facility] Pete Gonzalez MD Medication Check In [facility] [place], [place] [address] [address] [place] [address] [phone] Social History Tobacco Use Types Packs/Day Years [...] 12:25 PM CDT Pharmacist [facility]andy [facility] She would like to inform provider [...] on filedocumented in this encounter Care Teams Commercial Collections Driver Relationship Specialty Start Date End Date Jose Holden MD PCP - General Otolaryngology 12/14/17 [place] [address] documented as of this encounter
--- OUTSIDE RECORDS SUMMARY | 2022-07-06 15:54 | XMS_ITS | Encounter Summary ---
:1965 Author Organization [facility] Address [address] [place] [address] Care Team Providers Name Role Phone Jose Holden MD Primary Care Provider [phone] Encounter Details Date Type Department Care Team Description 06/20/2018 Consent for [facility] Procedure/Treat [facility] Tony Alvarado MD FOR TX/PROCEDURE ent Pain Management [address] [place] [phone] Social History Tobacco Use Types Packs/Day Years [...] on filedocumented in this encounter Care Teams Congregational Care Pastor Relationship Specialty Start Date End Date Jose Holden MD PCP - General Otolaryngology 12/14/[address] [place], [place] [address] documented as of this encounter
--- OUTSIDE RECORDS SUMMARY | 2022-07-06 15:54 | XMS_ITS | Encounter Summary ---
:1965 Author Organization [facility] Address [address] [address] Care Team Providers Name Role Phone Jose Holden MD Primary Care Provider [phone] Reason for Visit Reason Comments POST-OP,EXAM Encounter Details Date Type Department Care Team Description 03/07/2018 [facility] Visit [facility] Denis P ostop check (Primary Center Neurosurgery/Ortho Dx ) Spine [address] [place], [place] [id number] Social History Tobacco Use Types Packs/Day Years [...] understanding. Please call the Neurosurgery/Spine Clinic at [phone] with any further questions or concerns. documented [...] surgery documented in this encounter Care Teams Paragliding Instructor Relationship Specialty Start Date End Date Jose Holden MD PCP - General Otolaryngology 12/14/17 [facility] [place] [address] documented as of this encounter
--- OUTSIDE RECORDS SUMMARY | 2022-07-06 15:54 | XMS_ITS | Encounter Summary ---
:1965 Author Organization [facility] Address [address] [address] Care Team Providers Name Role Phone Jose Holden MD Primary Care Provider [phone] Encounter Details Date Type Department Care Team Description 11/10/2018 Orders Only External to Pete Tamayo MD [address] [place], [place] [address] (Wo rk) Social History Tobacco Use Types [...] 11/10/2018 12:00 AM R esults for this BOILER COVERER HELPER procedure are i n the results section. documented in this encounter Results CT SCAN SPINE--SCAN (11/10/2018 12:00 AM BOILER COVERER HELPER) Anatomical Region Laterality Modality Other Specimen (Source) Anatomical Location Collection Method / Collectio n Time Received Time / Laterality Volume 11/10/2018 Narrative This result has an attachment that is no t available. Pete Gonzalez MD DUMMY/OTHER/AR documented in this encounter Visit Diagnoses Not on filedocumented in this encounter Care Teams Station Supervisor Relationship Specialty Start Date End Date Jose Holden MD PCP - General Otolaryngology 12/14/17 [address] [place] [address] documented as of this encounter
--- OUTSIDE RECORDS SUMMARY | 2022-07-06 15:54 | XMS_ITS | Encounter Summary ---
:1965 Author Organization [facility] Address [address] [place] [address] Care Team Providers Name Role Phone Jose Holden MD Primary Care Provider [phone] Reason for Visit Reason Comments Revisit trigger point injections Encounter Details Date Type Department Care Team Description 06/29/2018 Office Visit [facility] Myalgia (Primary Dx); [facility] Raul Alvarado MD Medical marijuana use; Management [address] H/O cervical spinal arthrodesis; [address] [place], [place] [address] [phone] Social History Tobacco Use Types Packs/Day Years [...] treatment plan is, please contact me via [employer] online messaging or call the office at and ask to speak to a nurse. Tony Pittman MD Pain Medicine documented in this encounter Progress Notes Tony Pittman MD - 06/29/2018 10:20 AM CDT [facility] Follow-up Visit 06/29/2018 Interim history: [...] 5 mg Q6H - Prescribes by [facility], has been taking [...] a pain clinic in the past. [facility] physical therapy: Past [...] anterior cervical fusion 2016 Dr. Ihsan Brooke, [facility] past surgical history reviewed with patient. [...] ??? medical cannabis patient certified Take 1 [place] by mouth . ??? naloxone (NARCAN) 4 [...] Gain No facility-administered medications prior to visit. [place] and [place] Prescription Monitoring Program reviewed Allergies: Allergies Allergen [...] in her mother. Social history:she lives in [place], [place].she is not currently working. Smokin/2 ppd. [...] blocks instead in the future Barriers: 1. intermediate manager opioid use Plan: 1. Patient education: I [...] Medicine Physical Medicine and Rehabilitation [facility] This document serves as a record of services personally performed by Tony Pittman MD. It was created on his behalf by Gillian Harding, a trained medical coding specialist. The creation of this record is based [...] disorder documented in this encounter Care Teams Protective Officer Relationship Specialty Start Date End Date Jose Holden MD PCP - General Otolaryngology 12/14/[address] [place] [address] documented as of this encounter
--- OUTSIDE RECORDS SUMMARY | 2022-07-06 15:54 | XMS_ITS | Encounter Summary ---
:1965 Author Organization [facility] Address [address] [place] [address] Care Team Providers Name Role Phone Jose Holden MD Primary Care Provider [phone] Reason for Visit Reason Comments UPDATE Encounter Details Date Type Department Care Team Description 07/07/2018 Telephone [facility] Neuroscience Gume Pittman, [facility] [address] [place] [address] [place] [address] [phone] (Wo rk) Social History Tobacco Use Types [...] Arenas RN - 07/07/2018 12:44 PM CDT Manager Of Pharmacy called patient, she states she has left neck/shoulder pain that did not improve after TPI's last week. Pt shares her right side of neck/shoulder is getting tight again and she is having headaches. Pt wants to proceed with occipital nerve blocks for her headache. Manager Of Pharmacy offered patient appointment 07/10 which she accepted. [...] blocks instead in the future ??Barriers: 1. senior care opioid use ??Plan: 1. Patient education: I [...] on filedocumented in this encounter Care Teams Pot Fireman Relationship Specialty Start Date End Date Jose Holden MD PCP - General Otolaryngology 12/14/17 [place] [address] documented as of this encounter
--- OUTSIDE RECORDS SUMMARY | 2022-07-06 15:54 | XMS_ITS | Encounter Summary ---
:1965 Author [facility] Address [address] [place] [address] Care Team Providers Name Role Phone Jose Holden MD Primary Care Provider [phone] Encounter Details Date Type Department Care Team [...] HEAD 11/10/2018 12:00 AM Results for this WEB DEVELOPMENT CONSULTANT procedure are i n the results section . documented in this encounter Results CT HEAD (11/10/2018 12:00 AM WEB DEVELOPMENT CONSULTANT) Anatomical Region Laterality Modality Other Specimen (Source) Anatomical Location Collection Method / Collectio n Time Received Time / Laterality Volume 11/10/2018 Narrative This result has an attachment that is no t available. Phy No Primary/Referring DUMMY/OTHER/AR documented in this encounter Visit Diagnoses Not on filedocumented in this encounter Care Teams Claim Clerk Relationship Specialty Start Date End Date Jose Holden MD PCP - General Otolaryngology 12/14/17 [place] [address] documented as of this encounter
--- OUTSIDE RECORDS SUMMARY | 2022-07-06 15:54 | XMS_ITS | Encounter Summary ---
:1965 Author Organization [facility] Address [address] [place] [address] Care Team Providers Name Role Phone Jose Holden MD Primary Care Provider [phone] Encounter Details Date Type Department Care Team [...] on filedocumented in this encounter Care Teams Return Agent Airport Relationship Specialty Start Date End Date Jose Holden MD PCP - General Otolaryngology 12/14/17 [place] [address] documented as of this encounter
--- OUTSIDE RECORDS SUMMARY | 2022-07-06 15:54 | XMS_ITS | Encounter Summary ---
:1965 Author Organization [facility] Address [address] [place] [address] Care Team Providers Name Role Phone Jose Holden MD Primary Care Provider [phone] Encounter Details Date Type Department Care Team [...] on filedocumented in this encounter Care Teams Soft Crab Shedder Relationship Specialty Start Date End Date Jose Holden MD PCP - General Otolaryngology 12/14/17 [address] [place] [address] documented as of this encounter
--- OUTSIDE RECORDS SUMMARY | 2022-07-06 15:54 | XMS_ITS | Encounter Summary ---
:1965 Author Organization [facility] Address [address] [place] [address] Care Team Providers Name Role Phone Jose Holden MD Primary Care Provider [phone] Encounter Details Date Type Department Care Team [...] 11/10/2018 12:00 AM R esults for this LICENSED LOAN OFFICER ASSISTANT procedure are i n the results section. documented in this encounter Results CT SCAN SPINE--SCAN (11/10/2018 12:00 AM LICENSED LOAN OFFICER ASSISTANT) Anatomical Region Laterality Modality Other Specimen (Source) Anatomical Location Collection Method / Collectio n Time Received Time / Laterality Volume 11/10/2018 Narrative This result has an attachment that is no t available. Phy No Primary/Referring DUMMY/OTHER/AR documented in this encounter Visit Diagnoses Not on filedocumented in this encounter Care Teams Residential Collections Relationship Specialty Start Date End Date Jose Holden MD PCP - General Otolaryngology 12/14/[address] [place] [address] documented as of this encounter
--- OUTSIDE RECORDS SUMMARY | 2022-07-06 15:54 | XMS_ITS | Encounter Summary ---
:1965 Author Organization [facility] Address [address], [place] [address] Care Team Providers Name Role Phone Jose Holden MD Primary Care Provider [phone] Reason for Visit Reason Comments Revisit occipital nerve block Encounter Details Date Type Department Care Team Description 07/10/2018 Office Visit [facility] occipital neuralgia (Primary Dx); [facility] Pain RMD Myalgia; Management [address] H/O cervical spinal arthrodesis [address] [place] [address] [phone] Social History Tobacco Use Types Packs/Day Years [...] treatment plan is, please contact me via [employer] online messaging or call the office at and ask to speak to a nurse. Tony Pittman MD Pain Medicine documented in this encounter Progress Notes Tony Pittman MD - 07/10/2018 3:45 PM CDT [facility] Follow-up Visit 07/10/2018 Interim [...] Oxycodone 5 mg Q6H - Prescribes by [facility], has been taking for [...] at a pain clinic in the past. [facility] physical therapy: Past Acupuncture: [...] anterior cervical fusion 2017 Dr. Ihsan Brooke, [facility] past surgical history reviewed with patient. [...] ??? medical cannabis patient certified Take 1 [place] by mouth . ??? naloxone (NARCAN) 4 [...] 0 No facility-administered medications prior to visit. [place] and [place] Prescription Monitoring Program reviewed Allergies: Allergies Allergen [...] in her mother. Social history:she lives in [place], [place].she is not currently working. Smokin/2 ppd. [...] of occipital nerve block today Barriers: 1. roasterman opioid use Plan: 1. Patient education: I [...] MD Pain Medicine Physical Medicine and Rehabilitation [facility] This document serves as a record of services personally performed by Tony Pittman MD. It was created on his behalf by Gillian Harding, a trained emergency medical tech. The creation of this record is based [...] status documented in this encounter Care Teams Instructional Systems Designer Relationship Specialty Start Date End Date Jose Holden MD PCP - General Otolaryngology 12/14/[address] [place], [place] [address] [address] documented as of this encounter
--- OUTSIDE RECORDS SUMMARY | 2022-07-06 15:54 | XMS_ITS | Encounter Summary ---
:1965 Author Organization [facility] Address [address] [address] Care Team Providers Name Role Phone Jose Holden MD Primary Care Provider [phone] Reason for Referral Procedure/Equipment (Routine) - Incomplete Specialty Diagnoses / Procedures Referred By Contact Refer red To Contact Diagnoses S/P cervical spinal fusion Sirisha Rankin, Procedures XR Cervical Spine AP/Lat Upright KALPANA SHER [address] [place] [address] Referral ID Status Reason Start Date Expiration Date Visits V isits Requested Authorized [id number] Incomplete 04/05/2018 07/05/2019 1 1 Reason for Visit Reason Comments POST-OP,EXAM Encounter Details Date Type Department Care Team Description 04/05/2018 Office Visit [facility] Sneha Maher, S/Camelia cervic al spinal [facility] RODRICK Newberry CNP fusion (Primary Dx) Neurosurgery/Ortho [address] Spine [place], [place] [address] [address] [place] [address] [phone] Social History Tobacco Use Types Packs/Day Years [...] your understanding. Please call the Neurosurgery Center [phone] with any further questions or concerns or if your symptoms worsen. Thank you for coming to see us today. We are your partner. documented in this encounter Progress Notes Sirisha Rankin, SWITCHGEAR REPAIRER, NURSING UNIT CLERK - 04/05/2018 1:00 PM CDT POSTOPERATIVE DIAGNOSES: [...] a divorce and plans to move to [place] in the next several months. She would like to have an appointment with Dr. Gonzalez prior to her move out of on [facility]. She denies any incisional concerns. She has [...] elbow(tricep) R:5/5 L: 5/5 C8 - Finger flexors(deblocker) R:5/5 L: 5/5 T1 - Finger abduction/adduction [...] PM CDT Narrative 06/14/2018 5:54 PM CDT [facility] XR CERVICAL SPINE AP/LAT UPRIGHT 06/14/2018 [...] soft tissue swelling. Remainder unchanged. Sirisha Maher SWITCHGEAR REPAIRER, NURSING UNIT CLERK RAD GD documented in this encounter Visit Diagnoses Diagnosis S/P cervical spinal fusion - Primary Arthrodesis status S/P cervical spinal fusion Arthrodesis status documented in this encounter Care Teams Design Editor Relationship Specialty Start Date End Date Jose Holden MD PCP - General Otolaryngology 12/14/17 [place] [address] documented as of this encounter
--- OUTSIDE RECORDS SUMMARY | 2022-07-06 15:54 | XMS_ITS | Encounter Summary ---
:1965 Author Organization [facility] Address [address], [place] [address] Care Team Providers Name Role Phone Jose Holden MD Primary Care Provider [phone] Encounter Details Date Type Department Care Team Description 11/10/2018 Emergency Room External to External, Provid er FALL/HEADACHE NECK LT No [place] [address] Social History Tobacco Use Types Packs/Day Years [...] on filedocumented in this encounter Care Teams Spout Liner Helper Relationship Specialty Start Date End Date Jose Holden MD PCP - General Otolaryngology 12/14/17 [place] [address] documented as of this encounter
--- OUTSIDE RECORDS SUMMARY | 2022-07-06 15:54 | XMS_ITS | Encounter Summary ---
:1965 Author Organization [facility] Address [address] [place] [address] Care Team Providers Name Role Phone Jose Holden MD Primary Care Provider Reason for Visit Reason Comments Revisit Bilateral cervical/thoracic trigger point injections Encounter Details Date Type Department Care Team Description 06/20/2018 Office Visit [facility] Myalgia (Primary Dx); [facility] Pain RMD H/O cervical spinal arthrodesis; Management [address] Cervical vertebral fusion; [address] [place], [place] Fibromyalgia; [place] [address] Tobacco use disorder; [phone] Status post tot al left knee replacement [...] in ALL states. As laws can change agent time, one should review the state government [...] treatment plan is, please contact me via [employer] online messaging or call the office at [...] Oxycodone 5 mg Q6H - Prescribes by [facility], has been taking for [...] at a pain clinic in the past. [facility] physical therapy: Past Acupuncture: [...] cervical fusion 2016 Dr. Ihsan Brooke, [facility] past surgical history reviewed with patient. Medications: [...] Gain No facility-administered medications prior to visit. [place] and [place] Prescription Monitoring Program reviewed Allergies: Allergies Allergen [...] in her mother. Social history:she lives in [place], [place].she is not currently working. Smokin/2 ppd. [...] post total left knee replacement Barriers: 1. powered bridge specialist opioid use Plan: 1. Patient education: I went over the above diagnoses and treatment plan with her and answered all of her questions. 2. Imaging review: None 3. Exercise program: Regular exercise and activity 4. Medications: No changes. Do not recommend drier tender naphthalene opioid use, continue to decrease use until [...] MD Pain Medicine Physical Medicine and Rehabilitation [facility] This document serves as a record of services personally performed by Tony Pittman MD. It was created on his behalf by Gillian Harding, a trained certified medical coding specialist. The creation of this [...] replacement documented in this encounter Care Teams Telephone Supervisor Relationship Specialty Start Date End Date Jose Holden MD PCP - General Otolaryngology 12/14/17 [facility] [place] [address] documented as of this encounter
--- OUTSIDE RECORDS SUMMARY | 2022-07-06 15:54 | XMS_ITS | Encounter Summary ---
:1965 Author Organization [facility] Address [address] [address] Care Team Providers Name Role Phone Jose Holden MD Primary Care Provider [phone] Reason for Visit Reason Onset Date Comments Refill 03/01/2018 Encounter Details Date Type Department Care Team Description 03/01/2018 Refill [facility] Neuroscience [place] Chava Simon RN Refill Neurosurgery/Ortho S [address] [place] [address] Social History Tobacco Use Types [...] as per standard weaning. Sirisha Jefferson APRN, BALLAST REGULATOR OPERATOR 03/01/2018, 11:49 AM Electronically signed by Sirisha Rankin, FPGA DESIGN ENGINEER, BALLAST REGULATOR OPERATOR at 03/01/2018 11:51 AM CDT Chava Simon RN - 03/01/2018 11:38 AM [...] pt. have a f/u appointment: 04/05/2018 Pharmacy: [facility] Chava Simon RN 03/01/2018, 11:40 AM documented in this encounter Plan of Treatment Not on filedocumented as of this encounter Visit Diagnoses Not on filedocumented in this encounter Care Teams Flight Operations Coordinator Relationship Specialty Start Date End Date Jose Holden MD PCP - General Otolaryngology 12/14/[address] [place], [place] [address] [address] documented as of this encounter
--- OUTSIDE RECORDS SUMMARY | 2022-07-06 15:54 | XMS_ITS | Encounter Summary ---
:1965 Author Organization [facility] Address [address], [place] [address] Care Team Providers Name Role Phone Jose Holden MD Primary Care Provider [phone] Reason for Visit Reason Comments QUESTIONS, GENERAL Encounter Details Date Type Department Care Team Description 03/01/2018 Telephone [facility] Pete Gonzalez MD QUESTIONS, GENERAL [facility] [address] [facility] Neurosurgery/Ortho S [place], [place] [address] [address] [place] [address] [phone] Social History Tobacco Use Types Packs/Day Years [...] she should go to the ED in [place]? Please review and advise. Chantel Angela 03/01/2018, 11:15 AM documented in this encounter Plan of Treatment Not on filedocumented as of this encounter Visit Diagnoses Not on filedocumented in this encounter Care Teams Morgue Librarian Relationship Specialty Start Date End Date Jose Holden MD PCP - General Otolaryngology 12/14/17 [facility] [place] [address] documented as of this encounter
--- OUTSIDE RECORDS SUMMARY | 2022-07-06 15:54 | XMS_ITS | Encounter Summary ---
:1965 Author [facility] Address [address] [place] [address] Care Team Providers Name Role Phone Jose Holden MD Primary Care Provider [phone] Reason for Visit Reason Comments Medication Questions FYI Encounter Details Date Type Department Care Team Description 03/01/2018 Telephone [facility] Pete Gonzalez MD Medication Questions; [facility] [address] [place] [address] FY I Neurosurgery/Ortho S [place] [address] [place] [address] [place] [address] [phone] (Wo rk) Social History Tobacco Use Types [...] filedocumented in this encounter Care Teams Residential Roofer Relationship Specialty Start Date End Date Jose Holden MD PCP - General Otolaryngology 12/14/17 [facility] [place] [address] documented as of this encounter
--- OUTSIDE RECORDS SUMMARY | 2022-07-06 15:54 | XMS_ITS | Encounter Summary ---
:1965 Author Organization [facility] Address [address] [place] [address] Care Team Providers Name Role Phone Jose Holden MD Primary Care Provider [phone] Encounter Details Date Type Department Care Team Description 07/10/2018 Consent for [facility] Procedure/Treat [facility] Tony Alvarado MD FOR TX/PROCEDURE ent Pain Management [address] [place] [phone] Social History Tobacco Use Types Packs/Day Years [...] on filedocumented in this encounter Care Teams Collating Machine Operator Relationship Specialty Start Date End Date Jose Holden MD PCP - General Otolaryngology 12/14/[address] [place], [place] [address] documented as of this encounter
--- OUTSIDE RECORDS SUMMARY | 2022-07-06 15:54 | XMS_ITS | Encounter Summary ---
:1965 Author Organization [facility] Address [address] [place] [address] Care Team Providers Name Role Phone Jose Holden MD Primary Care Provider [phone] Encounter Details Date Type Department Care Team Description 06/29/2018 Consent for [facility] Procedure/Treat Neuro[facility] Center Tony Alvarado MD FOR TX/PROCEDURE ent Pain Management [address] [place] [address] [id number] Social History Tobacco Use Types Packs/Day Years [...] on filedocumented in this encounter Care Teams Warp Tension Tester Relationship Specialty Start Date End Date Jose Holden MD PCP - General Otolaryngology 12/14/[address] [place], [place] [id number] documented as of this encounter
--- OUTSIDE RECORDS SUMMARY | 2022-07-06 15:54 | XMS_ITS | Encounter Summary ---
:1965 Author Organization [facility] Address [address] [address] Care Team Providers Name Role Phone Jose Holden MD Primary Care Provider [phone] Reason for Visit Reason Comments Forms Encounter Details Date Type Department Care Team Description 07/11/2018 Telephone [facility] Pete Gonzalez MD Forms Center [facility] [address] [facility] [place], [place] [address] [address] [place] [address] [phone] Social History Tobacco Use Types Packs/Day Years [...] on filedocumented in this encounter Care Teams House Mover Relationship Specialty Start Date End Date Jose Holden MD PCP - General Otolaryngology 12/14/17 [place] [address] documented as of this encounter
--- OUTSIDE RECORDS SUMMARY | 2022-07-06 15:54 | XMS_ITS | Encounter Summary ---
:1965 Author Organization [facility] Address [address], [place] [address] Care Team Providers Name Role Phone Jose Holden MD Primary Care Provider [phone] Reason for Visit Reason Comments Revisit Encounter Details Date Type Department Care Team Description 08/14/2018 Office Visit [facility] Pete Gonzalez, Neck pain (Primary Neuroscience Center MD Dx) Neurosurgery/Ortho [address] [facility] Spine [address] [facility] [place], [place] [address] [address] [phone] Social History Tobacco Use Types Packs/Day Years [...] Surgery center (4th floor [address], [place]).prior to your next appointment. Follow up: with [...] your understanding. Please call the Neurosurgery Center [phone] with any further questions or concerns or [...] Cervicalgia documented in this encounter Care Teams Financial Manager Relationship Specialty Start Date End Date Jose Holden MD PCP - General Otolaryngology 12/14/17 [facility] [place] [address] documented as of this encounter
--- OUTSIDE RECORDS SUMMARY | 2022-07-06 15:54 | XMS_ITS | Encounter Summary ---
:1965 Author [facility] Address [address] [place] [address] Care Team Providers Name Role Phone Jose Holden MD Primary Care Provider [phone] Reason for Referral Therapies (Routine) - Closed Specialty Diagnoses / Procedures Referred By Contact Refer red To Contact Diagnoses S/P cervical spinal fusion Pete Gonzalez MD [address] [place] [address] Referral ID Status Reason Start Date Expiration Date Visits Requ ested Visits Authorized [id number] Closed 06/26/2018 08/25/2018 1 1 Scheduling Instructions Your provider has recommended an appoint ment with a [facility] Physical Therapist. Please stop at the clinic check out desk for assistance with scheduling or if you prefer to call for your appointment you may call [facility] [place] at [phone]. We suggest yo u call your health insurance company about your coverage and benefits for this appo intment. Reason for Visit Reason Comments RESULTS, TEST Orders Needed Encounter Details Date Type Department Care Team Description 06/22/2018 Telephone [facility] Pete Gonzalez MD RESULTS, TEST; Orders Neuroscience Center 3931 [facility] eded Neurosurgery/Ortho S [address] [place] [address] [place] [id number] (Wo rk) Social History Tobacco Use Types Packs/Day Years Used Date Smoking Tobacco: Every Day Cigarettes 0.5 30 Smokeless Tobacco: Never Comments: 30 year smoker on and off, 0.5 a day Alcohol Use Standard Drinks/Week Comments No 0 (1 standard drink = 0.6 oz pure alcoho l) Sex Assigned at Date Recorded Not on file documented as of this encounter Nursing Notes AnthonyMichael - 06/28/2018 11:50 AM CDT Noted. Patient is now scheduled for 08/14/18 at 1:00pm with Dr. Gonzalez. Michael Porfirio Cruz 06/28/2018, 11:51 AM Chava Simon RN - 06/28/2018 11:36 AM CDT Relayed message from Lois to patient. Patient stated understanding. Patient offered a sooner appointment on 08/14/[address] Gonzalez will not be available on 08/21/18. Patient accepted this appointment. Rachid: please change patient's appointment from 08/21/18 to 08/14/[address] Gonzalez. Chava Simon RN 06/28/2018, 11:41 AM Lois Pham PA-C - 06/28/2018 10:31 AM CDT She is a cervical patient of ours, we have never formally seen/assessed her for her lumbar spine, this is what her upcoming appt in July is for (it was brought up at a cervical post op appt). She can be referred to PN in the interim prior to appt. Further plan can be made at upcoming appt. However, she does have hx of multiple spinal cord stimulators per recent office visit note, so unlikely to be a great option for her just given that hx. Lois Pham PA-C Chava Simon RN - 06/28/2018 8:30 AM CDT Relayed message from Lois to patient. Patient stated understanding. Team, patient is looking at getting a stimulator or morphine pump through [facility]. She is wondering if she should wait and discuss possible surgical options with Dr. Gonzalez or just get the stimulator or morphine pump? Please advise. Chava Simon RN 06/28/2018, 8:45 AM Michael Cruz - 06/28/2018 8:25 AM CDT Patient calling in regards to her imaging results. Homicide Squad Commanding Officer relayed message from Lois Pham PA-C. Patient states that she would like a return call. Patient states she doesn't understand why there are no acute concerns? She will be seeing [facility] to discuss getting a stimulator or morphine pump. Patient would like to know if she should move forward with this from Neurosurgery standpoint. Please call patient to further discuss and advise. Michael Cruz 06/28/2018, 8:27 AM Chava Simon RN - 06/28/2018 8:24 AM CDT [facility] Chava Simon RN 06/28/2018, 8:26 AM Lois Pham PA-C - 06/28/2018 6:47 AM CDT No acute concerns. Pt has follow up scheduled to review lumbar symptoms and imaging. Lois Pham PA-C Chava Simon RN - 06/27/2018 4:15 PM CDT Images from the original note were not included. Team, please review imaging and reports and advise. Chava Simon RN 06/27/2018, 4:17 PM Chava Simon RN - 06/27/2018 4:00 PM CDT CDs have been uploaded to PACs. Facility is faxing reports at this time. Will have team review when received. Chava Simon RN 06/27/2018, 4:04 PM Jennifer Kidd - 06/27/2018 3:47 PM CDT CD received and given to nurse Bridges. Gracy Del Toro - 06/27/2018 8:44 AM CDT Patient is calling and states that someone is going to drop off the CD today. Patient would like a call back regarding the results as soon as we get the CD. Michael Cruz - 06/26/2018 11:18 AM CDT Homicide Squad Commanding Officer reached patient and relayed message below to her. Patient expressed her appreciation. Per herrequest order has been sent to [facility] outpatient rehabilitation services at [phone] with a note to have them call patient to schedule. Patient aware they will reach out to schedule her for PT. She also states she picked up a copy of her imaging and they relayed that they had alreadysent one. Homicide Squad Commanding Officer called their radiology department and spoke to Selena who states a CD was not mailed out and she is not sure why. She took down clinic address of [address] [address] and stated she would send one out today. Will send back to provider & care team as an FYI that CD is on its way. Michael Cruz 06/26/2018, 11:24 AM Chava Simon RN - 06/26/2018 8:56 AM CDT Per Lois Pham PA-C: OK to order PT with massage. Verbal read back done and orders placed. Rachid: Please call patient and assist her with scheduling her PT. Also, we have not received imaging regarding her MRI or CT. Please make sure she has had this sent from [facility] for team to review. Chava Simon RN 06/26/2018, 8:58 AM Lois Pham PA-C - 06/26/2018 6:50 AM CDT OK to order PT with massage. We do not have results of imaging that I am aware of. Lois Pham PA-C Jennifer Kidd - 06/23/2018 3:49 PM CDT Pt calling back as she has not heard back from nurse yet. Also anxious to know results of CT and MRIthat were done at [facility] on 06/20. Informed pt that Dr. Gonzalez's team is not in clinic today so she may not receive a call back until next week. Pt stated she would just call the hospital forthe results... Routing to team to review, and also address message below re: req for PT and massage orders. Chantel Angela - 06/22/2018 4:39 PM CDT Angie called wondering if she should get an order for physical therapy and massage therapy for her cervical? Please review and contact patient to discuss. Chantel Angela 06/22/2018, 4:46 PM documented in this encounter Plan of Treatment Scheduled Referrals Name Type Priority Associated Diagnoses Order S chedule Physical Therapy Referral Routine S/P cervical spinal fusi on Ordered: 06/26/2018 documented as of this encounter Visit Diagnoses Diagnosis S/P cervical spinal fusion - Primary Arthrodesis status documented in this encounter Care Teams Middle School Art Teacher Relationship Specialty Start Date End Date Jose Holden MD PCP - General Otolaryngology 12/14/17 [facility] [place] [address] documented as of this encounter
--- OUTSIDE RECORDS SUMMARY | 2022-07-06 15:54 | XMS_ITS | Encounter Summary ---
:1965 Author Organization [facility] Address [address], [place] [address] Care Team Providers Name Role Phone Jose Holden MD Primary Care Provider [phone] Reason for Referral Therapies (Routine) - Closed Specialty Diagnoses / Procedures Referred By Contact Refer red To Contact Diagnoses S/P cervical spinal fusion Pete Gonzalez MD [address] [place] [address] Referral ID Status Reason Start Date Expiration Date Visits Requ ested Visits Authorized [id number] Closed 08/16/2018 10/15/2018 1 1 [facility]uling [facility]oin tment with a [facility] Physical Therapist. Please stop at the clinic check out desk for assistance with scheduling or if you prefer to call for your appointment you may call [facility] Outpatient Rehabilitation at [phone]. We suggest you call your [facility] insurance company about your coverage and benefits for this appointment. Encounter Details Date Type Department Care Team Description 07/07/2018 Telephone [facility] Neuroscience Pete Gonzalez MD Center Neurosurgery/Ortho [address] [facility] Spine [place], [place] [address] [address] [place] [address] [phone] Social History Tobacco Use Types Packs/Day Years [...] Del Toro - 08/16/2018 1:41 PM CDT Jr. Java Developer contacted patient 08/16-faxed order to [facility] [phone] per patient request Chava Simon RN - 08/16/2018 1:11 PM CDT [...] Type Priority Associated Diagnoses [facility] Referral Routine S/P cervical spinal fusi on Ordered: 08/16/2018 documented as of this encounter Visit Diagnoses Diagnosis S/P cervical spinal fusion - Primary Arthrodesis status documented in this encounter Care Teams Supervisor Cabinetmaker Relationship Specialty Start Date End Date Jose Holden MD PCP - General Otolaryngology 12/14/17 [place] [address] documented as of this encounter
--- OUTSIDE RECORDS SUMMARY | 2022-07-06 15:54 | XMS_ITS | Encounter Summary ---
:1965 Author [facility] Address [address], [place] [address] Care Team Providers Name Role Phone Jose Holden MD Primary Care Provider [phone] Reason for Visit Reason Comments Refill Encounter Details Date Type Department Care Team Description 03/07/2018 [facility] MD Refill Center [facility] [address] [facility] [place], [place] [address] [address] [place] [address] [phone] Social History Tobacco Use Types Packs/Day Years [...] on filedocumented in this encounter Care Teams Stage Electrician Relationship Specialty Start Date End Date Jose Holden MD PCP - General Otolaryngology 12/14/[address] [place] [address] documented as of this encounter
--- OUTSIDE RECORDS SUMMARY | 2022-07-06 15:54 | XMS_ITS | Encounter Summary ---
:1965 Author Organization [facility] Address [address] [place] [address] Care Team Providers Name Role Phone Jose Holden MD Primary Care Provider [phone] Reason for Referral Consult/Transfer Care (Routine) - Closed Specialty Diagnoses / Procedures Referred By Contact Refer red To Contact Diagnoses Traumatic brain injury, without loss of consciousness, initial encounter (HRC) Tony Pittman MD [address] [place] [address] Referral ID Status Reason Start Date Expiration Date Visits Requ ested Visits Authorized [id number] Closed 12/26/2018 03/26/2020 1 1 Scheduling Instructions Your provider has recommended an appoint ment with [facility]. You may call to schedule your appointment. If you prefer, a chief crew scheduler will contact you [facility] the next 3 business days to assist you in setting up this appointment. ANICAL EQUIPMENT SALES ENGINEER Reason for Visit Reason Comments Revisit Bilateral cervical/thoracic trigger point injections Encounter Details Date Type Department Care Team Description 12/26/2018 Office Visit Tony Huggins occipital neuralgia (Primary Dx); Neuroscience Center Pain RMD Myalgia; Management [address] H/O cervical spinal arthrodesis; [address] [place], [place] Traumatic brain injury, with out loss of consciousness, initial encounter (HRC) [place] [phone] Social History Tobacco Use Types Packs/Day Years [...] Comments Blood Pressure 115/72 12/26/2018 2:48 PM MECHANICAL EQUIPMENT SALES ENGINEER Pulse 70 12/26/2018 2:48 PM MECHANICAL EQUIPMENT SALES ENGINEER Temperature - - Respiratory Rate - - Oxygen Saturation - - Inhaled Oxygen Concentration - - Weight - - Height - - Body Mass Index - - documented in this encounter Patient Instructions Patient InstructionsKiTony leslie MD - 12/26/2018 2:15 PM CST Impression: Anige was seen today for revisit. Diagnoses and [...] treatment plan is, please contact me via Qlue online messaging or call the office at and ask to speak to a nurse. Tony Pittman MD Pain Medicine ANICAL EQUIPMENT SALES ENGINEER documented in this encounter Progress Notes Tony Pittman MD - 12/26/2018 2:15 PM CST [facility] Follow-up Visit 08/14/2018 Interim [...] Patient continues to get chronic oxycodone from [facility] in [place] and does not planon decreasing her dosage. [...] Oxycodone 5 mg Q6H - Prescribes by [facility], has been taking [...] at a pain clinic in the past. [facility] physical therapy: Past [...] anterior cervical fusion 2016 Dr. Ihsan Brooke, [facility] past surgical history reviewed with [...] ??? medical cannabis patient certified Take 1 [place] by mouth . ??? naloxone (NARCAN) 4 [...] Gain No facility-administered medications prior to visit. [place] and [place] Prescription Monitoring Program reviewed Allergies: Allergies Allergen [...] in her mother. Social history:she lives in [place], [place].she is not currently working. Smokin/2 ppd. [...] to traumatic brain injury clinic. Barriers: 1. medical terminologist opioid use Plan: 1. Patient education: I [...] Pain Medicine Physical Medicine and Rehabilitation [facility] Pain Management This document serves as a record of services personally performed by Tony Pittman MD. It was created on his behalf by Gillian Harding, a trained medical lab assistant. The creation of this record is based on the scribe's personal observations and the provider's statements to her. The document has been checked and approved by the attending provider. ANICAL EQUIPMENT SALES ENGINEER documented in this encounter Plan of Treatment Scheduled Referrals Name Type Priority Associated Diagnoses Order S [facility] Referral Routine Traumatic brain injury, with out loss Ordered: 12/26/2018 of consciousness, initial en counter (HRC) documented as of this encounter Visit Diagnoses Diagnosis Bilateral occipital neuralgia - Primary Myalgia Mylagia and myositis, unspecified H/O cervical spinal arthrodesis Arthrodesis status Traumatic brain injury, without loss of consciousness, initial encounter (HRC) documented in this encounter Care Teams Proprietary Trader Relationship Specialty Start Date End Date Jose Holden MD PCP - General Otolaryngology 12/14/[address] [place] [address] documented as of this encounter
--- OUTSIDE RECORDS SUMMARY | 2022-07-06 15:54 | XMS_ITS | Encounter Summary ---
:1965 Author Organization [facility] Address [address], [place] [address] Care Team Providers Name Role Phone Jose Holden MD Primary Care Provider [phone] Reason for Visit Reason Comments Revisit Bilateral cervical/thoracic trigger point injections Encounter Details Date Type Department Care Team Description 08/14/2018 Office Visit [facility] occipital neuralgia (Primary Dx); Neuroscience Center Pain RMD Myalgia; Management [address] H/O cervical spinal arthrodesis [address] [place] [phone] Social History Tobacco Use Types Packs/Day Years [...] Pittman MD - 08/14/2018 3:00 PM CDT [facility] Follow-up Visit 08/14/2018 Interim history: [...] Oxycodone 5 mg Q6H - Prescribes by [facility], has been taking for many [...] at a pain clinic in the past. [facility] physical therapy: Past Acupuncture: None [...] anterior cervical fusion 2017 Dr. Ihsan Brooke, [facility] past surgical history reviewed with patient. [...] ??? medical cannabis patient certified Take 1 [place] by mouth . ??? naloxone (NARCAN) 4 [...] Gain No facility-administered medications prior to visit. [place] and [place] Prescription Monitoring Program reviewed Allergies: Allergies Allergen [...] in her mother. Social history:she lives in [place], [place].she is not currently working. Smokin/2 ppd. [...] of occipital nerve block today Barriers: 1. [facility] opioid use Plan: 1. Patient education: I [...] MD Pain Medicine [facility] This document serves as a record of services personally performed by Tony Pittman MD. It was created on his behalf by Gillian Harding, a trained medical charge entry specialist. The creation of this record is [...] status documented in this encounter Care Teams Transition Assistant Relationship Specialty Start Date End Date Jose Holden MD PCP - General Otolaryngology 12/14/17 [facility] [place] [address] documented as of this encounter
--- OUTSIDE RECORDS SUMMARY | 2022-07-06 15:54 | XMS_ITS | Encounter Summary ---
:1965 Author Organization [facility] Address [address] [address] Care Team Providers Name Role Phone Jose Holden MD Primary Care Provider [phone] Reason for Visit Procedure/Equipment (Routine) - Incomplete Specialty Diagnoses / Procedures Referred By Contact Refer red To Contact Diagnoses Cervical spondylosis with radiculopathy (HRC) Sneha Maher, Sirisha Celaya, Procedures XR Cervical Spine AP/Lat Upright PYTHON JAVA DEVELOPER, TECHNICAL AID [address] [place] [address] Referral ID Status Reason Start Date Expiration Date Visits V isits Requested Authorized [id number] Incomplete 02/21/2018 05/23/2019 1 1 Encounter Details Date Type Department Care Team Description 04/05/2018 Imaging [facility] Sneha Maher, Cervical spondylosis Neuroscience [facility] Sirisha Celaya, APR N, TECHNICAL AID with radiculopathy Radiology [address] [place] [address] [phone] (Wo rk) Social History Tobacco Use Types [...] Anatomic alignment. Shoulder prosthesis. Sirisha Yomi Maher PYTHON JAVA DEVELOPER, TECHNICAL AID RAD GD documented in this encounter Visit Diagnoses Diagnosis Cervical spondylosis with radiculopathy (HRC) Cervical spondylosis with myelopathy documented in this encounter Care Teams Inspector Tester Sorter Relationship Specialty Start Date End Date Jose Holden MD PCP - General Otolaryngology 12/14/[address] [place], [place] [address] [address] documented as of this encounter
--- OUTSIDE RECORDS SUMMARY | 2022-07-06 15:54 | XMS_ITS | Encounter Summary ---
:1965 [facility] Address [address] [place] [address] Care Team Providers Name Role Phone Jose Holden MD Primary Care Provider [phone] Reason for Visit Procedure/Equipment (Routine) - Incomplete Specialty Diagnoses / Procedures Referred By Contact Refer red To Contact Diagnoses S/P cervical spinal fusion Sirisha Rankin, Procedures XR Cervical Spine AP/Lat Upright SPAR FINISHER, SPINDLE SETTER [address] [place] [address] Referral ID Status Reason Start Date Expiration Date Visits V isits Requested Authorized [id number] Incomplete 04/05/2018 07/05/2019 1 1 Encounter Details Date Type Department Care Team Description 06/14/2018 Imaging [facility] Sneha Maher, S/P cervi [facility] spinal Neuroscience Center Sirisha Celaya, APR N, SPINDLE SETTER fusion Radiology [address] [place] [address] [place] [address] [phone] Social History Tobacco Use Types Packs/Day Years [...] PM CDT Narrative 06/14/2018 5:54 PM CDT [facility] XR CERVICAL SPINE AP/LAT UPRIGHT [...] note might be different from the original. [facility] XR CERVICAL SPINE AP/LAT UPRIGHT [...] soft tissue swelling. Remainder unchanged. Sirisha Maher SPAR FINISHER, SPINDLE SETTER RAD GD documented in this encounter Visit Diagnoses Diagnosis S/P cervical spinal fusion Arthrodesis status documented in this encounter Care Teams Still Operator Brandy Relationship Specialty Start Date End Date Jose Holden MD PCP - General Otolaryngology 12/14/17 [place] [address] documented as of this encounter
--- OUTSIDE RECORDS SUMMARY | 2022-07-06 15:54 | XMS_ITS | Encounter Summary ---
:1965 Author Organization [facility] Address [address] [address] Care Team Providers Name Role Phone Jose Holden MD Primary Care Provider [phone] Reason for Visit Reason Comments Injection Encounter Details Date Type Department Care Team Description 09/04/2018 Telephone [facility] Neuroscience Pete Gonzalez MD Injection Center Neurosurgery/Ortho [address] [facility] Spine [place], [place] [address] [address] [place] [address] [phone] Social History Tobacco Use Types Packs/Day Years [...] 09/05/2018 10:13 AM CDT Per Sirisha Maher, PRIMARY CARE SALES REPRESENTATIVE: cannot write letter. Okay for repeat bilateral [...] Cervicalgia documented in this encounter Care Teams Handmade Tile Artist Relationship Specialty Start Date End Date Jose Holden MD PCP - General Otolaryngology 12/14/17 [place] [id number] documented as of this encounter
--- OUTSIDE RECORDS SUMMARY | 2022-07-06 15:54 | XMS_ITS | Encounter Summary ---
:1965 Author Organization [facility] Address [address] [place] [address] Care Team Providers Name Role Phone Jose Holden MD Primary Care Provider [phone] Reason for Referral Procedure/Equipment (Routine) - Closed Specialty Diagnoses / Procedures Referred By Contact Refer red To Contact Diagnoses Neck pain Pete Gonzalez MD [address] [place] [address] Referral ID Status Reason Start Date Expiration Date Visits Requ ested Visits Authorized [id number] Closed 06/14/2018 12/11/2018 1 1 Scheduling Instructions [...] Dx); Neuroscience Center Neck pain Neurosurgery/Ortho [address] [facility] Sp[facility] [address] [place] [address] [place] [id number] Social History Tobacco Use Types Packs/Day Years [...] your understanding. Please call the Neurosurgery Center [phone] with any further questions or concerns or [...] Cervicalgia documented in this encounter Care Teams Cryptologic Technician Relationship Specialty Start Date End Date Jose Holden MD PCP - General Otolaryngology 12/14/17 [place] [address] documented as of this encounter
--- OUTSIDE RECORDS SUMMARY | 2022-07-06 15:54 | XMS_ITS | Encounter Summary ---
:1965 [facility] Address [address] [place] [address] Care Team Providers Name Role Phone Jose Holden MD Primary Care Provider [phone] Reason for Visit Reason Comments UPDATE Pain Encounter Details Date Type Department Care Team Description 06/22/2018 [facility]phone [facility] Neuroscience Gume Pittman R, UPDATE; [facility] [address] [place] [address] [place] [address] [phone] (Wo rk) Social History Tobacco Use Types [...] Arenas RN - 06/26/2018 10:02 AM CDT Pantry Goods Worker called patient, notified info below. Pantry Goods Worker offered patient appt today however she cannot [...] returned post TPI's from 3 days ago. 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 Patient education: I went over the above diagnoses and treatment plan with her and answered all of her questions. 2. Imaging review: None 3. Exercise program: Regular exercise and activity 4. Medications: No changes. Do not recommend prison opioid use, continue to decrease use until [...] MD Pain Medicine Physical Medicine and Rehabilitation [facility] Pain Management. Obi Echeverria - 06/22/2018 4:29 [...] on filedocumented in this encounter Care Teams Twine Reeling Machine Operator Relationship Specialty Start Date End Date Jose Holden MD PCP - General Otolaryngology 12/14/17 [place] [address] documented as of this encounter
--- OUTSIDE RECORDS SUMMARY | 2022-07-06 15:54 | XMS_ITS | Encounter Summary ---
:1965 Author Organization [facility] Address [address] [place] [address] Care Team Providers Name Role Phone Jose Holden MD Primary Care Provider [phone] Reason for Referral Therapies (Routine) - Closed Specialty Diagnoses / Procedures Referred By Contact Refer red To Contact Diagnoses S/P cervical spinal fusion Pete Gonzalez MD [facility] [address] [place] [address] Referral ID Status Reason Start Date Expiration Date Visits Requ ested Visits Authorized [id number] Closed 12/26/2018 02/24/2019 1 1 Scheduling Instructions Your provider has recommended an appoint ment with a [facility] Physical Therapist. Please stop at the clinic check out desk for assistance with scheduling or if you prefer to call for your appointment you may call [facility] Outpatient Rehabilitation at [phone]. We suggest you call your [facility] insurance company about your coverage and benefits for this appointment. EAR MEDICINE PET CT TECHNOLOGIST Reason for Visit Reason Comments Revisit Encounter Details Date Type Department Care Team Description 12/26/2018 Office Visit [facility] Pete Gonzalez, S/P miguelito al spinal Neuroscience Center fusion (Primary Dx) [facility]tho [address] [facility] [address] [place] [address] [place] [address] [phone] Social History Tobacco Use Types Packs/Day Years [...] Comments Blood Pressure 115/72 12/26/2018 1:48 PM [address]UC[address]AR MEDICINE PET CT TECHNOLOGIST Pulse 70 12/26/2018 1:48 [address]AR MED[address]INE PET [address] TECHNOLOGIST Temperature 36.5 ??C (97.7 ??F) 12/26/2018 1:48 [address]AR MED[address]INE PET [address] TECHNOLOGIST Respiratory Rate - - Oxygen Saturation - - Inhaled Oxygen Concentration - - Weight 71.2 kg (157 lb) 12/26/2018 1:48 PM NUCLEAR MEDICINE PET CT TECHNOLOGIST Height 152.4 cm (5') 12/26/2018 1:48 [address]AR MED[address]INE PET CT TECHNOLOGIST Body Mass Index 30.66 12/26/2018 1:48 [address]UCLEAR MEDICINE PET CT TECHNOLOGIST documented in this encounter Patient Instructions Patient [...] your understanding. Please call the Neurosurgery Center [phone] with any further questions or concerns or if your symptoms worsen. Thank you for coming to see us today. We are your partner. EAR MEDICINE PET CT TECHNOLOGIST documented in this encounter Progress Notes Pete [...] at her current physical therapy Center at [facility] and also continued pain management in [...] is prone to typos and grammatical errors. EAR MEDICINE PET CT TECHNOLOGIST documented in this encounter Plan of Treatment Scheduled Referrals Name Type Priority Associated Diagnoses Order [facility] Physical Therapy Referral Routine S/P cervical spinal fusi on Ordered: 12/26/2018 documented as of this encounter Visit Diagnoses Diagnosis S/P cervical spinal fusion - Primary Arthrodesis status documented in this encounter Care Teams Hydroelectric Station Operator Chief Relationship Specialty Start Date End Date Jose Holden MD PCP - General Otolaryngology 12/14/17 [place] [address] documented as of this encounter
--- OUTSIDE RECORDS SUMMARY | 2022-07-06 15:54 | XMS_ITS | Encounter Summary ---
:1965 Author Organization [facility] Address [address] [place] [address] Care Team Providers Name Role Phone Jose Holden MD Primary Care Provider [phone] Encounter Details Date Type Department Care Team Description 08/14/2018 Consent for [facility] Procedure/Treat Neuroscience Center Tony Alvarado MD FOR TX/PROCEDURE ent Pain Management [address] [place] [id number] Social History Tobacco Use Types Packs/Day Years [...] on filedocumented in this encounter Care Teams Acoustical Engineer Relationship Specialty Start Date End Date Jose Holden MD PCP - General Otolaryngology 12/14/[address] [place], [place] [id number] documented as of this encounter
--- OUTSIDE RECORDS SUMMARY | 2022-07-06 15:55 | XMS_ITS | Encounter Summary ---
:1965 Author [facility] Address [address] [address] Care Team Providers Name Role Phone Jose Holden MD Primary Care Provider [phone] Reason for Visit Auth/Cert Specialty Diagnoses / [...] Expiration Date Visits Requ ested Visits Authorized [id number] 1 1 Encounter Details Date Type Department Care Team Description 02/20/2018 [facility] Pete Gonzalez MD [address] [place] [address] [place] [address] [phone] (Wo rk) Social History Tobacco Use Types [...] 12:36 PM CDT Fluoroscopy provided by a manager of radiology. Exact fluoroscopy time is documented in end of exam information in EPIC Pete Gonzalez MD RAD GD documented in this encounter Visit Diagnoses Not on filedocumented in this encounter Care Teams Bingo Clerk Relationship Specialty Start Date End Date Jose Holden MD PCP - General Otolaryngology 12/14/[address] [place] [address] documented as of this encounter
--- OUTSIDE RECORDS SUMMARY | 2022-07-06 15:55 | XMS_ITS | Encounter Summary ---
:1965 Author Organization [facility] Address [address], [place] [address] Care Team Providers Name Role Phone Jose Holden MD Primary Care Provider [phone] Reason for Visit Reason Comments QUESTIONS, GENERAL Encounter Details Date Type Department Care Team Description 01/25/2018 Telephone [facility] Pete Gonzalez MD QUESTIONS, GENERAL Neuroscience Center [address] [facility] Neurosurgery/Ortho S [place], [place] [address] [address] [place] [address] [phone] Social History Tobacco Use Types Packs/Day Years [...] she should receive a call from the plastic surgery specialist in the next 1-3 weeks to discuss her surgery/date. Patient stated understanding and will call with any updates or changes. Chava Simon RN 01/25/2018, 11:04 AM ITIAN TEACHER Gi De La Vega 01/25/2018 10:56 AM CST Patient calling to speak to RN. Regarding her MRI scan. ITIAN TEACHER documented in this encounter Plan of Treatment Not on filedocumented as of this encounter Visit Diagnoses Not on filedocumented in this encounter Care Teams Labor Relations Specialist Relationship Specialty Start Date End Date Jose Holden MD PCP - General Otolaryngology 12/14/[address] [place] [address] documented as of this encounter
--- OUTSIDE RECORDS SUMMARY | 2022-07-06 15:55 | XMS_ITS | Encounter Summary ---
:1965 Author Organization [facility] Address [address], [place] [address] Care Team Providers Name Role Phone Jose Holden MD Primary Care Provider [phone] Reason for Visit Reason Comments QUESTIONS, GENERAL Encounter Details Date Type Department Care Team Description 01/19/2018 Telephone [facility] Pete Gonzalez MD QUESTIONS, GENERAL Neuroscience Center [address] [facility] Neurosurgery/Ortho S [place], [place] [address] [address] [place] [address] [phone] Social History Tobacco Use Types Packs/Day Years [...] of MRI was received via mail [facility]. CD given to RN PEDIATRIC ICU Chava Simon RN - 01/19/2018 12:00 PM CST Patient states she will bring the MRI CD hopefully tomorrow 01/20/2018. Chava Simon RN 01/19/2018, 12:01 PM PEDIATRIC ICU Gi De La Vega - 01/19/2018 11:47 AM CST Patient calling to speak to RN. Would like to speak to him regarding an MRI CD? Please call her at [phone]. PEDIATRIC ICU documented in this encounter Plan of Treatment Not on filedocumented as of this encounter Visit Diagnoses Not on filedocumented in this encounter Care Teams Electronics Maintenance Technician Relationship Specialty Start Date End Date Jose Holden MD PCP - General Otolaryngology 12/14/17 [facility] [place] [address] documented as of this encounter
--- OUTSIDE RECORDS SUMMARY | 2022-07-06 15:55 | XMS_ITS | Encounter Summary ---
:1965 Author Organization [facility] Address [address] [place] [address] Care Team Providers Name Role Phone Jose Holden MD Primary Care Provider [phone] Encounter Details Date Type Department Care Team Description 01/20/2018 Telephone [facility] Chava Simon RN Center Neurosurgery/ Ortho Spine [address] [place] [address] Social History Tobacco Use Types Packs/Day [...] placed. Chava Simon RN 01/25/2018, 8:24 AM WARE ENGINEER ADVISOR Chava Simon RN - 01/24/2018 12:[address] Gonzalez reviewed imaging and is waiting until appropriate time to place case request. Chava Simon RN 01/24/2018, 12:45 PM WARE ENGINEER ADVISOR Gi De La Vega - 01/20/2018 11:21 AM CST Patient called to speak to RN. She has a new phone number. Please call her at [phone]. thanks WARE ENGINEER ADVISOR Chava Simon RN - 01/20/2018 11:15 AM CST Images from the original note were not included. Team please have Dr. Gonzalez review imaging which is now on PACs and place case request. Chava Simon RN 01/20/2018, 11:18 AM WARE ENGINEER ADVISOR documented in this encounter Plan of Treatment Not on filedocumented as of this encounter Visit Diagnoses Not on filedocumented in this encounter Care Teams Fisher Trawl Line Relationship Specialty Start Date End Date Jose Holden MD PCP - General Otolaryngology 12/14/[address] [place], [place] [address] [address] documented as of this encounter
--- OUTSIDE RECORDS SUMMARY | 2022-07-06 15:55 | XMS_ITS | Encounter Summary ---
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 [address] [place] [address] [phone] Social History Tobacco Use Types Packs/Day Years [...] Cervicalgia documented in this encounter Care Teams Tourist Guide Relationship Specialty Start Date End Date Jose Holden MD PCP - General Otolaryngology 12/14/17 [facility] [place] [address] documented as of this encounter
--- OUTSIDE RECORDS SUMMARY | 2022-07-06 15:55 | XMS_ITS | Encounter Summary ---
:1965 [facility] Address [address] [place] [address] Care Team Providers Name Role Phone Jose Holden MD Primary Care Provider [phone] Encounter Details Date Type Department Care Team Description 02/07/2018 Prep for Surgery [facility] Sneha Maher, Neuroscience Center Sirisha L, APR N, MANAGEMENT ANALYST Neurosurgery/Ortho [address] [place] [address] [place] [address] [phone] Social History Tobacco Use Types Packs/Day Years [...] on filedocumented in this encounter Care Teams Professional Caster Relationship Specialty Start Date End Date Jose Holden MD PCP - General Otolaryngology 12/14/[address] [place] [address] documented as of this encounter
--- OUTSIDE RECORDS SUMMARY | 2022-07-06 15:55 | XMS_ITS | Encounter Summary ---
:1965 [facility] Address [address], [place] [address] Care Team Providers Name Role Phone Jose Holden MD Primary Care Provider [phone] Reason for Referral Procedure/Equipment (Routine) - Incomplete Specialty Diagnoses / Procedures Referred By Contact Refer red To Contact Diagnoses Cervical spondylosis with radiculopathy (HRC) Sirisha Rankin, Procedures XR Cervical Spine AP/Lat Upright [place]PANA SHER [address] [place] [address] Referral ID Status Reason Start Date Expiration Date Visits V isits Requested Authorized [id number] Incomplete 02/21/2018 05/23/2019 1 1 (Routine) Specialty Diagnoses / Procedures Referred By Contact Refer red To Contact Sirisha Rankin APRN, CNP [address] [place] [address] Referral ID Status Reason Start Date Expiration Date Visits Requ ested Visits Authorized (Routine) - Incomplete Specialty Diagnoses / Procedures Referred By Contact Refer red To Contact Procedures Marky Gonzalez MD XR C-Arm 0-30 Minutes [address] [place] [address] Referral ID Status Reason Start Date Expiration Date Visits V isits Requested Authorized [id number] Incomplete 02/20/2018 05/22/2019 1 1 Procedure/Equipment (Routine) - Incomplete Specialty Diagnoses / Procedures Referred By Contact Refer red To Contact Procedures Lois Pham, STEPHANIE XR Cervical Spine AP/Lat [address] [place], [place] [address] Referral ID Status Reason Start Date Expiration Date Visits V isits Requested Authorized [id number] Incomplete 02/20/2018 05/22/2019 1 1 (Routine) - Incomplete Specialty Diagnoses / Procedures Referred By Contact Refer red To Contact Procedures Marky Gonzalez MD XR C-Arm 30-[address] [place] [address] XR C-Arm 0-30 Minutes [place], [place] [address] Referral ID Status Reason Start Date Expiration Date Visits V isits Requested Authorized [id number] Incomplete 02/20/2018 05/22/2019 1 1 (Routine) - Incomplete Specialty Diagnoses / Procedures Referred By Contact Refer red To Contact Procedures Marky Gonzalez MD XR C-Arm 2.5-[address] [place] [address] Referral ID Status Reason Start Date Expiration Date Visits V isits Requested Authorized [id number] Incomplete 02/20/2018 05/22/2019 1 1 Reason for [...] Expiration Date Visits Requ ested Visits Authorized [id number] 1 1 Encounter Details Date Type Department Care Team Description 02/20/2018 - Hospital [facility] Marky Gonzalez, Cervical spondylosis with ra diculopathy (Primary Dx); 02/23/2018 Encounter [address] Ervin MD Cervical vertebral fusion; [place], [place] [address] [place] 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 [...] 9.4 - 12.4 fl Narrative Performed at [facility], [address] [place] [address] Physical Exam: BP 124/78 Pulse 74 Temp [...] in strength to your extremeties. Neurosurgery clinic [phone]. If it is after hours, please call [...] RN on 03/07 at 11AM at [address] [facility], 2nd floor. 2. Follow up with Dr. Gonzalez/Lois Pham PA-C/Sirisha Maher NP on 04/05 at 1:00PM [facility] Patient also instructed to call clinic at [phone] or hospital for any questions or concerns. Patient verbalizes understanding and states no further questions at this time. 3. Follow up with PCP for any medical issues Total time spent at the time of discharge was 30 minutes Sirisha Maher APRN, CNP [facility]#[phone] documented in this encounter Discharge Instructions Discharge InstructionsDonna Ellis RN - 02/23/2018 10:42 AM CDT Hospital Contact Information [address] [address] General Information Discharging physician: Dr. Gonzalez Community [facility] Resources Emergency & Urgently Needed Care: For emergencies call 911 and/or get medical help right away. If you are a [facility] member and have medical needs after clinic hours you may call the [facility] [phone] or . Fall Prevention Recommendations ??? Follow [...] Ellis RN - 02/23/2018 11:50 AM CDT [facility] Discharge Note - Nursing Admission Date/Time: [...] End of Report --- Sneha Maher, Sirisha Celaya, CREATIVE TECHNOLOGIST, RANGELAND MANAGEMENT SPECIALIST - 02/23/2018 9:02 AM CDT Neurosurgery Progress [...] including C3- T1 posterior fusion (done in [place] approx 6 [...] Dc home today ?? Sirisha Maher, NIKKY, RANGELAND MANAGEMENT SPECIALIST 02/23/2018, 9:02 AM Neurosurgery Pgr#[phone] Jolene Kaur PA-C - 02/22/2018 12:45 PM [...] including C3- T1 posterior fusion (done in [place] approx 6 [...] Lois Pham PA-C, 02/22/2018, 9:05 AM Neurosurgery [phone] He Reyes MD - 02/22/2018 8:29 AM [...] He Reyes M.D. [facility] [phone] INTERVAL HISTORY: She started tizanidine last night [...] 02/22/18 0743 Current Outpatient Prescriptions Ordered in [facility] Medication Sig Dispense Refill ??? sennosides-docusate [...] TIME SPENT: 35 minutes including 50% time dvsc-so-xihs time counseling her about her diagnosis and treatment options, and coordinating care with the primary team. DECISION-MAKING: The level of decision-making in this case is high/complex due to the complexity of medical problems, acute/chronic pain, opioid analgesia issues, and behavioral factors. He Reyes M.D. Brooklyn Whittington - 02/21/2018 1:47 PM CDT [facility] Care Management Screening Admission Info: Cognitive [...] She see Dr Dr Estephanie Franz at [facility] [address]. No DC needs anticipated. I verified the demographics on the face sheet for the correct address, phone number, emergency contact and PCP information. Brooklyn Whittington RN CM [phone] Lois Pham PA-C - 02/21/2018 9:23 AM CDT Neurosurgery Progress Note Date of service: 02/21/2018 Subjective: Feels sore. Upset she did not have SOFTWARE TEST TECHNICIAN overnight. Wants to go smoke. Wants to [...] there were a couple of options including SOFTWARE TEST TECHNICIAN vs IV pain medications for post op pain control, and rationale for non SOFTWARE TEST TECHNICIAN at this time. Did discuss that would not recommend DC as drain still has high output. Upright xrays prior to DC Up with assistance Continue hemovac until <30/shift Soft collar when OOB, PRN in bed for comfort PT/OT Dispo: Anticipate home in next 1-2 days pending drain output Lois Pham PA-C, 02/21/2018, 9:23 AM Neurosurgery [phone] He Reyes MD - 02/20/2018 1:[address] PM [address] Note from Dr. Covarrubias on 02/13/18: ? 1. On the day of surgery please order an Inpatient pain consult 2. Ketamine 5mg/h during surgery ?? Recommendations for opioids: ?? If using a SOFTWARE TEST TECHNICIAN: No oral opioids Start a SOFTWARE TEST TECHNICIAN pump with Dilaudid continuous IV infusion at a basal rate of 0.1 mg/hr with SOFTWARE TEST TECHNICIAN boluses of 0.2-0.4 mg every 10 minutes. ?? If not using a SOFTWARE TEST TECHNICIAN: Start dilaudid 2-4mg q3h prn (alternatively can [...] Pham PA-C - 02/20/2018 3:24 PM CDT [facility] Brief Operative Progress Note Surgery Date: 02/20/2018 Surgeon(s) and Role: * Marky Gonzalez MD - Primary PHYSICIAN END PACKER-Meka Pham Pre-op Diagnosis: * Cervical spondylosis with [...] The procedure was medically necessary for an assistant professor of economics because Dr. Gonzalez needed the operative exposure [...] Lois Pham PA-C, 02/20/2018, 3:25 PM Neurosurgery [phone] Marky Gonzalez MD - 02/20/2018 12:00 AM CDT ANGIE BENDER CSN: [id number] OPERATIVE REPORT DATE OF SURGERY: 02/20/2018 : 1965 SURGEON: MARKY GONZALEZ MD END PACKER: Lois Pham PA-C. PREOPERATIVE DIAGNOSES: 1. Status [...] performing all critical portions. MD YOLANDE COLEMAN/ALESSANDRO /[id number] cc: MARKY GONZALEZ MD documented in this [...] the risk. She has been on these buttermaker helper, desires to eventually come off. She also [...] He Reyes M.D. [facility] [phone] HISTORY OF PRESENT ILLNESS: Per Chart Review: [...] headache Opioid prescriber: Rosetta Martin-LEDY Jerry MD-valium WIRE SPLICER database review: Risk Factors: History of substance [...] Lois Pham PA-C ??? glucose-ascorbic acid (aka [id number]) chewable tablet 4 Tab 4 Tab Oral [...] TIME SPENT: 70 minutes including 50% time wihv-qm-idbl time counseling her about her diagnosis and treatment options, and coordinating care with the primary team. DECISION-MAKING: The level of decision-making in this case is high/complex due to the complexity of medical problems, acute/chronic pain, opioid analgesia issues, and behavioral factors. documented in this encounter Miscellaneous Notes OR Nursing - Monica Pate RN - 02/20/2018 2:49 PM CDT [facility] Progress Note Patient Name: Angie Bender Date [...] failure. Anatomic alignment. Shoulder prosthesis. Sirisha Maher CREATIVE TECHNOLOGIST, RANGELAND MANAGEMENT SPECIALIST RAD GD (ABNORMAL) Complete Blood Count-No Diff (02/22/2018 12:36 PM CDT) P athologist Signature WBC 10.2 4.0 - 11.0 [facility] k/ul HOSPITAL RBC 3.36 (L) 4.0 - 5.2 [facility] M[facility] Hemoglobin 11.1 (L) 12.0 - 16.0 [facility] g/dl HOSPITAL HCT 33.2 (L) 36.0 - 46.0 [facility] MCV 98.8 80 - 100 fl [facility] MCH 33.0 26 - 34 pg [facility] MCHC 33.4 32 - 36 [facility] g/dl HOSPITAL RDW 14.4 11.5 - 14.5 [facility] Platelets 183 150 - 450 [facility] k/[facility] MPV 10.6 9.4 - 12.4 [facility] Specimen Anatomical Collection Method Collection Time Receive d Time (Source) Location / / Volume Laterality 02/22/2018 12:36 02/22/2018 PM CDT 12:37 PM CDT Narrative [facility] - 02/22/2018 12:46 PM C DT Performed at [facility] , [address] [place] [address] Lois Pham PA-C LAB_1 Performing Organization Address City/State/ZIP Code Phon e Number [id number] [place] [address] XR Cervical Spine AP/Lat Upright (02/21/2018 9:50 [...] Organization Address City/State/ZIP Code Phon e Number [address] [address], [facility] [phone] (ABNORMAL) Basic Metabolic Panel (02/21/2018 7:12 AM CDT) athologist Signature Sodium 138 136 - 145 [facility] mmol/L [facility] Potassium 3.9 3.5 - 5.1 [facility] mmol/L [facility] Chloride 111 (H) 98 - 109 [facility] mmol/L [facility] CO2 20 20 - 29 [facility]/L [facility] Anion Gap 7 7 - 16 [facility] (calc.) mmol/L [facility] Glucose 117 70 - 180 [facility] mg/dl HOSPITAL Calcium 8.3 (L) 8.4 - 10.2 [facility] mg/dl HOSPITAL BUN 14 7 - 26 [facility] mg/dl [facility] Creatinine 0.63 0.55 - [facility] 1.02 mg/dl HOSPITAL GFR, Estimated >60 >60 [facility] ml/min/1.7 [facility] 3m2 GFR, Est., If >60 >60 [facility] Black ml/min/1.7 [facility] 3m2 Specimen Anatomical Collection Method Collection Time Receive d Time (Source) Location / / Volume Laterality 02/21/2018 7:12 AM 8 7:13 CDT AM CDT Narrative [facility] - 02/21/2018 7:47 AM CD T Performed at [facility] , [address] [place] [address] Lois Pham PA-C LAB_1 Performing Organization Address City/State/[place] [address] [address], [facility] (ABNORMAL) Hemogram with Plts (02/21/2018 7:12 AM CDT) athologist Signature WBC 10.0 4.0 - 11.0 [facility] RBC 3.29 (L) 4.0 - 5.2 [facility] Hemoglobin 10.7 (L) 12.0 - 16.0 [facility] g[facility]dl [facility] HCT 32.2 (L) 36.0 - 46.0 [facility] MCV 97.9 80 - 100 [facility] MCH 32.5 26 - 34 pg [facility] MCHC 33.2 32 - 36 [facility] g/dl [facility] RDW 13.9 11.5 - 14.5 [facility] Platelets 186 150 - 450 [facility] MPV 10.3 9.4 - 12.4 [facility] Specimen Anatomical Collection Method Collection Time Receive d Time (Source) Location / / Volume Laterality 02/21/2018 7:12 AM 8 7:13 CDT AM CDT Narrative [facility] - 02/21/2018 7:26 AM CD T Performed at [facility] , [address] [place] [address] Lois Pham PA-C LAB_1 Performing Organization Address City/[facility]/ZIP Code Phon e Number [address] [address], [facility] Glucose, Whole Blood POC (02/20/2018 11:20 PM CDT) P athologist Signature Glucose, Whole 140 70 - 180 [facility] Blood mg/dl [facility]OSPITAL Comment: Point of Care Testing No Action Required Specimen Anatomical Collection Method Collection Time Receive d Time (Source) Location / / Volume Laterality 02/20/2018 11:20 02/20/2018 PM CDT 11:26 PM CDT Marky Gonzalez MD LAB_1 Performing Organization Address [facility] Phon e Number [address] [address], [place] Glucose, Whole Blood POC (02/20/2018 5:05 PM CDT) P athologist Signature Glucose, Whole 145 70 - 180 [facility] Blood mg/dl [facility]OSPITAL Comment: Point of Care Testing No Action Required Specimen Anatomical Collection Method Collection Time Receive d Time (Source) Location / / Volume Laterality 02/20/2018 5:05 PM 8 5:25 CDT PM CDT Marky Gonzalez MD LAB_1 Performing Organization Address City/[facility]/ZIP [facility] Phon e Number [address] [address], [place] [phone] Glucose, Whole Blood POC (02/20/2018 3:45 PM [...] Organization Address City/State/ZIP Code Phon e Number [address] [address], [place] XR C-Arm 0-30 Minutes (02/20/2018 2:05 PM CDT) Anatomical Region Laterality Modality Other Specimen (Source) Anatomical Location Collection Method / Collectio n Time Received Time / Laterality Volume Narrative 02/20/2018 2:06 PM CDT Fluoroscopy provided by a surgical technologist. Exact fluoroscopy time is documented in end of exam information in EPIC Marky Gonzalez MD RAD GD XR C-Arm 2.5-3 Hours (02/20/2018 12:45 PM CDT) Anatomical Region Laterality Modality Other Specimen (Source) Anatomical Location Collection Method / Collectio n Time Received Time / Laterality Volume Narrative 02/20/2018 12:45 PM CDT Fluoroscopy provided by a surgical technologist. Exact fluoroscopy time is documented in end of exam information in EPIC Marky Gonzalez MD RAD GD XR C-Arm 30-59 Minutes (02/20/2018 12:36 PM CDT) Anatomical Region Laterality Modality Other Specimen (Source) Anatomical Location Collection Method / Collectio n Time Received Time / Laterality Volume Narrative 02/20/2018 12:36 PM CDT Fluoroscopy provided by a surgical technologist. Exact fluoroscopy time is documented in [...] Organization Address City/State/ZIP Code Phon e Number [address] [address], [place] [phone] Glucose, Whole Blood POC (02/20/2018 6:25 AM CDT) athologist Signature Glucose, Whole 90 70 - 180 [facility] Blood mg/dl [facility]OS[facility] Specimen Anatomical Collection Method Collection Time Receive d Time (Source) Location / / Volume Laterality 02/20/2018 6:25 AM 8 6:34 CDT AM CDT Marky Gonzalez MD LAB_1 Performing Organization Address City/[facility]/ZIP [facility] Phon e Number [address] [address], [facility] ABO/RH(D) Retype (02/20/2018 6:22 AM CDT) athologist Signature ABO/RH(D) A NEGATIVE [facility] Specimen Anatomical Collection Method Collection Time Receive d Time (Source) Location / / Volume Laterality 02/20/2018 6:22 AM 8 6:25 CDT AM CDT Narrative [facility] - 02/20/2018 7:06 AM CD T Performed at [facility] , [address] [place] [address] Marky Gonzalez MD LAB_1 Performing Organization Address [facility] Phon e Number [address] [address], [facility] [phone] INR/Protime (PT/INR) (02/20/2018 6:08 AM CDT) athologist Signature Protime 13.0 12.0 - 14.5 [facility] INR 1.0 0.9 - 1.1 [facility] Specimen Anatomical Collection Method Collection Time Receive d Time (Source) Location / / Volume Laterality 02/20/2018 6:08 AM 8 6:22 CDT AM CDT Narrative [facility] - 02/20/2018 6:40 AM CD T Performed at [facility] , [address] [place] [address] Sirisha Maher APRN, RANGELAND MANAGEMENT SPECIALIST LAB_1 Performing Organization Address [facility]/ZIP [facility] Phon e Number [address] [address], [facility] [phone] Hemogram with Platelets (02/20/2018 6:08 AM CDT) athologist Signature WBC 6.7 4.0 - 11.0 [facility] k[facility]ul [facility] RBC 4.13 4.0 - 5.2 [facility] M/ul [facility] Hemoglobin 13.5 12.0 - 16.0 [facility] g/dl [facility] HCT 39.8 36.0 - 46.0 [facility] MCV 96.4 80 - 100 fl [facility] MCH 32.7 26 - 34 pg [facility] MCHC 33.9 32 - 36 [facility] g/dl HOSPITAL RDW 13.8 11.5 - 14.5 [facility] Platelets 245 150 - 450 [facility] k/[facility] MPV 10.6 9.4 - 12.4 [facility] Specimen Anatomical Collection Method Collection Time Receive d Time (Source) Location / / Volume Laterality 02/20/2018 6:08 AM 8 6:22 CDT AM CDT Narrative [facility] - 02/20/2018 6:32 AM CD T Performed at [facility] , [address] [place] [address] Sirisha Maher APRN, RANGELAND MANAGEMENT SPECIALIST LAB_1 Performing Organization Address [facility]/State/[place] [address] (ABNORMAL) Basic Metabolic Panel (02/20/2018 6:08 AM CDT) athologist Signature Sodium 139 136 - 145 [facility] mmol/L [facility] Potassium 4.4 3.5 - 5.1 [facility] mmol/L [facility] Comment: Specimen Slightly Hemolyzed Hemolysis May Affect Result Chloride 109 98 - 109 mmol/L [facility] AL CO2 18 (L) 20 - 29 mmol/L [facility] L Anion Gap (calc.) 12 7 - 16 mmol/L [facility] Glucose 96 70 - 180 mg/dl [facility] L Calcium 9.4 8.4 - 10.2 mg/dl [facility] EHSAN BUN 14 7 - 26 mg/dl [facility] Creatinine 0.69 0.55 - 1.02 mg/dl [facility] GFR, Estimated >60 >60 ml/min/1.73m2 [facility] GFR, Est., If Black >60 >60 ml/min/1.73m2 [facility] Specimen Anatomical Collection Method Collection Time Receive d Time (Source) Location / / Volume Laterality 02/20/2018 6:08 AM 8 6:22 CDT AM CDT Narrative [facility] - 02/20/2018 6:52 AM CD T Performed at [facility] , [address] [place] [address] Sirisha Maher APRN RANGELAND MANAGEMENT SPECIALIST LAB_1 Performing Organization Address City/[facility] Phon e Number [address] [address], [facility] aPTT (Activated Partial Thromboplastin Time) (02/20/2018 6:08 AM CDT) P athologist Signature PTT 26.8 24.0 - 37.0 [facility] Specimen Anatomical Collection Method Collection Time Receive d Time (Source) Location / / Volume Laterality 02/20/2018 6:08 AM 8 6:22 CDT AM CDT Narrative [facility] - 02/20/2018 6:40 AM CD T Performed at [facility] , [address] [place] [address] Sirisha Maher APRN, RANGELAND MANAGEMENT SPECIALIST LAB_1 Performing Organization Address City/[facility] Phon e Number [address] [address], [facility] ABO Rh & Antibody Screen (Type & Screen) (02/20/2018 6:07 AM CDT) Patholo gist Method Time Signature Crossmatch 02/23/2018 [facility] ABO/RH(D) A NEGATIVE [facility] Antibody NEGATIVE [facility]OSPITAL Specimen Anatomical Collection Method Collection Time Receive d Time (Source) Location / / Volume Laterality 02/20/2018 6:07 AM 8 6:22 CDT AM CDT [facility] - 02/20/2018 7:10 AM CD T Performed at [facility] , [address] [place] [address] Sirisha Maher APRN, CNP LAB_1 Performing Organization Address City/State/ZIP Code Phon e Number [address] [address], [facility] [phone] EKG IP (02/20/2018 12:00 AM CDT) Specimen [...] Segura RN - 02/23/2018 9:57 AM CDT [facility] Plan of Care Note Assessment: Incisions C/D/I [...] Carbajal RN - 02/23/2018 7:43 AM CDT [facility] Plan of Care Note Assessment: pain Plan: [...] Rico RN - 02/22/2018 10:15 PM CDT [facility] Plan of Care Note Assessment: comfort level [...] Rico RN - 02/22/2018 4:00 PM CDT [facility]. MD Notified Note Name of MD notified: Ankit Time of MD notification: 1600 hours and 1 minute Reason: Pt.asking for valium now and current order for HS prn. pljuan david [place]. [id number]. Response: Valium one time dose now and HS prn. Shawn Butcher RN --- End of Report --- Plan of Care - Alec Gifford RN - 02/22/2018 1:57 PM CDT [facility] Plan of Care Note Assessment: pain Plan: [...] Lundberg RN - 02/22/2018 2:32 AM CDT [facility] Plan of Care Note Assessment: Pain Plan: [...] Orellana RN - 02/22/2018 12:33 AM CDT [facility] Plan of Care Note Assessment: Pain Plan: [...] Gifford RN - 02/21/2018 1:41 PM CDT [facility] Plan of Care Note Assessment: pain control [...] Lundberg RN - 02/21/2018 4:56 AM CDT [facility]. MD Notified Note Name of MD notified: Neurosurg Time of MD notification: 0400 hours and 55 minutes Reason: [id number]- Pt reporting oral/IV pain meds ineffective. Pt upset, req further intervention. Please advise. Thanks. Response: Discussed w/ neurosurg. To be addressed in AM and PRNs to continue to be administered as able. Anita Lundberg RN --- End of Report --- Plan of Care - Anita Lundberg RN - 02/21/2018 2:26 AM CDT [facility] Plan of Care Note Assessment: Pain Plan: [...] Control/Comfort Level unable to achieve outcome Comments: [facility] Plan of Care Note Assessment: posterior neck pain worst than anterior Plan: IHR, assessment, pain control Subjective: I thought that I was going to be on a dilaudid drip Objective: Pt angry that she was not on a SOFTWARE TEST TECHNICIAN pump, Dilaudid PO and IV given q3h, [...] PM CDT 50 mcg 25-50 mcg, Intravenous, [id number], Pain, Starting on Tue02/20/18 at 1451, Until [...] HS
documented in this encounter Care Teams Plan Examiner Relationship Specialty Start Date End Date Jose Holden MD PCP - General Otolaryngology 12/14/17 [place] [address] documented as of this encounter
--- OUTSIDE RECORDS SUMMARY | 2022-07-06 15:55 | XMS_ITS | Encounter Summary ---
:1965 Author Organization [facility] Address [address] [place] [address] Care Team Providers Name Role Phone Jose Holden MD Primary Care Provider [phone] Encounter Details Date Type Department Care Team [...] on filedocumented in this encounter Care Teams Column Precaster Relationship Specialty Start Date End Date Jose Holden MD PCP - General Otolaryngology 12/14/17 [place] [address] documented as of this encounter
--- OUTSIDE RECORDS SUMMARY | 2022-07-06 15:55 | XMS_ITS | Encounter Summary ---
:1965 Author Organization [facility] Address [address], [place] [address] Care Team Providers Name Role Phone Jose Holden MD Primary Care Provider [phone] Reason for Visit Reason Comments QUESTIONS, GENERAL Encounter Details Date Type Department Care Team Description 02/03/2018 Telephone [facility] Pete Gonzalez MD QUESTIONS, GENERAL [facility] [address] [facility] Neuro[facility]/Ortho [address] [place], [place] [address] [address] [place] [address] [phone] Social History Tobacco Use Types Packs/Day Years [...] PA. Chava Simon RN 02/03/2018, 12:01 PM RANCE AGENT Gi De La Vega - 02/03/2018 11:55 AM CST Patient calling to speak to Jamir. Would like to know about her surgery. Second Crusher did let patient know that Ana Rosa bag inspector is out of the office. She did request to speak to Jamir. Please call her at listed number. Thanks RANCE AGENT documented in this encounter Plan of Treatment Not on filedocumented as of this encounter Visit Diagnoses Not on filedocumented in this encounter Care Teams Closing Machine Operator Relationship Specialty Start Date End Date Jose Holden MD PCP - General Otolaryngology 12/14/[address] [place], [place] [address] [address] documented as of this encounter
--- OUTSIDE RECORDS SUMMARY | 2022-07-06 15:55 | XMS_ITS | Encounter Summary ---
:1965 Author Organization [facility] Address [address] [address] Care Team Providers Name Role Phone Jose [...] on filedocumented in this encounter Care Teams Wardrobe Custodian Relationship Specialty Start Date End Date Jose Holden MD PCP - General Otolaryngology 12/14/17 [place] [address] documented as of this encounter
--- OUTSIDE RECORDS SUMMARY | 2022-07-06 15:55 | XMS_ITS | Encounter Summary ---
:1965 Author Organization [facility] Address [address] [place] [address] Care Team Providers Name Role Phone Jose Holden MD Primary Care Provider [phone] Encounter Details Date Type Department Care Team Description 02/13/2018 Orders Only External to [facility] External, [place] [address] Social History Tobacco Use Types Packs/Day Years [...] on filedocumented in this encounter Care Teams Chain Maker Relationship Specialty Start Date End Date Jose Holden MD PCP - General Otolaryngology 12/14/17 [place] [address] documented as of this encounter
--- OUTSIDE RECORDS SUMMARY | 2022-07-06 15:55 | XMS_ITS | Encounter Summary ---
:1965 Author Organization [facility] Address [address] [place] [address] Care Team Providers Name Role Phone Jose Holden MD Primary Care Provider [phone] Encounter Details Date Type Department Care Team Description 02/14/2018 [facility] Chava Simon, RN [place] [facility] [address] [place] [address] Social History Tobacco Use Types Packs/Day [...] if we have received her preop yet. Motor Mechanic relayed we have not. Patient was given [phone] to have preop be faxed to us. Patient states she already talked to them and they said they already sent it but she will reach out to them again. Will await a return call from patient/watch out for fax. Michael Cruz 02/14/2018, 10:06 AM Chava Simon RN - 02/14/2018 9:11 AM CDT I still have not received patient's preop from [facility]. Could you please call patient and make sure she has had it faxed to us? Chava Simon RN 02/14/2018, 9:11 AM documented in this encounter Plan of Treatment Not on filedocumented as of this encounter Visit Diagnoses Not on filedocumented in this encounter Care Teams Hand Mexican Food Maker Relationship Specialty Start Date End Date Jose Holden MD PCP - General Otolaryngology 12/14/[address] [facility] [place] [address] documented as of this encounter
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
--- OUTSIDE RECORDS SUMMARY | 2022-07-06 15:55 | XMS_ITS | Encounter Summary ---
:1965 Author Organization [facility] Address [address] [place] [address] Care Team Providers Name Role Phone Jose Holden MD Primary Care Provider [phone] Reason for Visit Reason Comments CONSULT POPC-dos 02-20 w/Dr Gonzalez Encounter Details Date Type Department Care Team Description 02/13/2018 Office Visit [facility] Raul Stover MD cervical region Management [address] without myelopathy or [address] [place], [place] radiculopathy ([place] [id number] Dx) [phone] Social History Tobacco Use Types Packs/Day Years [...] some medicines that are opioids: ??? Hydrocodone (Hope, Vicodin, Lortab) ??? Oxycodone (OxyContin, Percocet) ??? [...] before you use any other medicines, including mgnq-aet-nxdzetf medicines. Make sure my care team knows [...] team or apharmacist. You can also visit [employer] or [employer] and search medicine disposalto learn about drug disposal. You may also call the Drug Enforcement Administration (BAR[place]) Office of Diversion Control's Registration Call Center at to find an authorized customs collector in your community. ??? If your [...] Content Version: 10.9 Custom: HP/PN 6-16 ?? [id number] [employer]obilized, [facility]. Stew Covarrubias MD documented in this encounter [...] experiences A lot of 'bad' surgeries in [place] Past Medical History: Diagnosis Date ??? Acne ??? Allergy ??? Anxiety disorder (HRC) ??? Arthritis ??? Asthma (HRC) ??? Bipolar 1 disorder (HRC) ??? COPD (chronic obstructive pulmonary disease) (HRC) ??? Depression (HRC) ??? Ear infection ??? Infection of the inner ear, left ? ? Nausea & vomiting ??? Sinusitis No past surgical history on file. CRIMINALIST Review: Allergies: Allergies Allergen Reactions ??? Adhesive [...] surgery Recommendations for opioids: If using a ASSET PROTECTION LEAD: No oral opioids Start a ASSET PROTECTION LEAD pump with Dilaudid continuous IV infusion at a basal rate of 0.1 mg/hr with ASSET PROTECTION LEAD boluses of 0.2-0.4 mg every 10 minutes. If not using a ASSET PROTECTION LEAD: Start dilaudid 2-4mg q3h prn (alternatively can [...] myelopathy documented in this encounter Care Teams Cinder Snapper Relationship Specialty Start Date End Date Jose Holden MD PCP - General Otolaryngology 12/14/17 [facility] [place] [address] documented as of this encounter
--- OUTSIDE RECORDS SUMMARY | 2022-07-06 15:55 | XMS_ITS | Encounter Summary ---
:1965 [facility] Address [address], [place] [address] Care Team Providers Name Role Phone Jose Holden MD Primary Care Provider [phone] Reason for Visit Auth/Cert Specialty Diagnoses / [...] Expiration Date Visits Requ ested Visits Authorized [id number] 1 1 Encounter Details Date Type Department Care Team Description 02/20/2018 [facility] Pete Gonzalez MD [address] [place] [address] [place] [address] [phone] (Wo rk) Social History Tobacco Use Types [...] PM CDT Fluoroscopy provided by a radiology orderly. Exact fluoroscopy time is documented in end of exam information in EPIC Pete Gonzalez MD RAD GD documented in this encounter Visit Diagnoses Not on filedocumented in this encounter Care Teams Ambulatory Service Representative Relationship Specialty Start Date End Date Jose Holden MD PCP - General Otolaryngology 12/14/[address] [place], [place] [address] [address] documented as of this encounter
--- OUTSIDE RECORDS SUMMARY | 2022-07-06 15:55 | XMS_ITS | Encounter Summary ---
:1965 Author Organization [facility] Address [address] [address] Care Team Providers Name Role Phone Jose Holden MD Primary Care Provider [phone] Reason for Visit Auth/Cert Specialty Diagnoses / [...] Expiration Date Visits Requ ested Visits Authorized [id number] 1 1 Encounter Details Date Type Department Care Team Description 02/20/2018 Surgery RH Operating Room Marky Gonzalez MD FUSION POSTERIOR [address] [place] [address] [place], [place] C2-T3, REMOVAL HARDWARE [phone] [id number] SPINE Anterior plate [phone] (Wo rk) and Posterior screws and rods [...] encounter Discharge Summaries Sneha Maher, Sirisha Celaya, PHYSICAL THERAPIST TECHNICIAN, HEATING FIXTURE TENDER - 02/23/2018 9:09 AM CDT Neurosurgery Discharge [...] Hospital Course: Angie Bender was admitted to [facility] on 02/20/2018 following posterior C2-T3 [...] 9.4 - 12.4 fl Narrative Performed at [facility], [address] [place] [address] Physical Exam: BP 124/78 Pulse 74 Temp [...] T1. 3. Intraoperative placement and removal of Taylor-Teez.by tongs. 4. Hardware removal, C6-T1 posterior. 5. [...] in strength to your extremeties. Neurosurgery clinic [phone]. If it is after hours, please call [...] neurosurgery RN on 03/07 at 11AM at [address] [place] [address], 2nd floor. 2. Follow up with Dr. Gonzalez/Lois Pham PA-C/Sirisha Maher NP on 04/05 at 1:00PM at [address] [place] [address]. Patient also instructed to call clinic at [phone] or [facility] for any questions or concerns. Patient verbalizes understanding and states no further questions at this time. 3. Follow up with PCP for any medical issues Total time spent at the time of discharge was 30 minutes Sirisha Maher APRN, [place] Pgr#[phone] documented in this encounter Discharge Instructions Discharge InstructionsDonna Ellis RN - 02/23/2018 10:42 AM CDT [place] [address] General Information Discharging physician: Dr. Gonzalez [facility] Emergency & Urgently Needed Care: For emergencies call 911 and/or get medical help right away. If you are a [facility] member and have medical needs after clinic hours you may call the [facility] [phone] or . Fall Prevention Recommendations ??? Follow [...] Ellis RN - 02/23/2018 11:50 AM CDT [facility] Discharge Note - Nursing [...] End of Report --- Sirisha Rankin APRN, HEATING FIXTURE TENDER - 02/23/2018 9:02 AM CDT Neurosurgery Progress [...] including C3- T1 posterior fusion (done [place] approx 6 years ago), with C6-T1 pseudoarthrosis, s/p C6-T1 ACDF approx [address] Ihsna Brooke, still with pseudoarthrosis; ongoing neck pain [...] Dc home today ?? Sirisha Maher APRN, HEATING FIXTURE TENDER 02/23/2018, 9:02 AM Neurosurgery Pgr#[phone] Jolene Kaur PA-C - 02/22/2018 12:45 PM [...] including C3- T1 posterior fusion (done [place] approx 6 years ago), with C6-T1 pseudoarthrosis, [...] Lois Pham PA-C, 02/22/2018, 9:05 AM Neurosurgery [phone] He Reyes MD - 02/22/2018 8:29 AM [...] with any questionsor concerns. He Reyes M.D. [facility] [phone] INTERVAL HISTORY: She started tizanidine last night [...] 3 mL 3 mL Intravenous Q8H Lois hPam PA-C 3 mL at 02/22/18 0753 ? [...] 02/22/18 0743 Current Outpatient Prescriptions [facility] Medication Sig Dispense Refill ??? sennosides-docusate sodium [...] TIME SPENT: 35 minutes including 50% time bjyt-og-[id number] time counseling her about her diagnosis and treatment options, and coordinating care with the primary team. DECISION-MAKING: The level of decision-making in this case is high/complex due to the complexity of medical problems, acute/chronic pain, opioid analgesia issues, and behavioral factors. He Reyes M.D. Brooklyn Whittington - 02/21/2018 1:47 PM CDT [facility] Care Management Screening Admission Info: Cognitive [...] She see Dr Dr Estephanie Franz at [facility]. No DC needs anticipated. I verified the demographics on the face sheet for the correct address, phone number, emergency contact and PCP information. Brooklyn Whittington RN CM [phone] Lois Pham PA-C - 02/21/2018 9:23 AM CDT Neurosurgery Progress Note Date of service: 02/21/2018 Subjective: Feels sore. Upset she did not have WARRANTY CLERK overnight. Wants to go smoke. Wants to [...] including C3- T1 posterior fusion (done [place] approx 6 years ago), with C6-T1 pseudoarthrosis, [...] there were a couple of options including WARRANTY CLERK vs IV pain medications for post op pain control, and rationale for non WARRANTY CLERK at this time. Did discuss that would not recommend DC as drain still has high output. Upright xrays prior to DC Up with assistance Continue hemovac until <30/shift Soft collar when OOB, PRN in bed for comfort PT/OT Dispo: Anticipate home in next 1-2 days pending drain output Lois Pham PA-C, 02/21/2018, 9:23 AM Neurosurgery [phone] He Reyes MD - 02/20/2018 1:20 PM CDT Note from Dr. Covarrubias on 02/13/18: ? 1. On the day of surgery please order an Inpatient pain consult 2. Ketamine 5mg/h during surgery ?? Recommendations for opioids: ?? If using a WARRANTY CLERK: No oral opioids Start a WARRANTY CLERK pump with Dilaudid continuous IV infusion at a basal rate of 0.1 mg/hr with WARRANTY CLERK boluses of 0.2-0.4 mg every 10 minutes. ?? If not using a WARRANTY CLERK: Start dilaudid 2-4mg q3h prn (alternatively can [...] Pham PA-C - 02/20/2018 3:24 PM CDT [facility] Brief Operative Progress Note Surgery Date: 02/20/2018 Surgeon(s) and Role: * Marky Gonzalez MD - Primary PHYSICIAN CONSULTING PRACTICE DIRECTOR-Meka Pham Pre-op Diagnosis: * Cervical spondylosis with [...] The procedure was medically necessary for an fitter's assistant because Dr. Gonzalez needed the operative [...] Lois Pham PA-C, 02/20/2018, 3:25 PM Neurosurgery [phone] Marky Gonzalez MD - 02/20/2018 12:00 AM CDT [facility]: [phone] OPERATIVE REPORT DATE OF SURGERY: 02/20/2018 : 1965 SURGEON: MARKY GONZALEZ MD CONSULTING PRACTICE DIRECTOR: Lois Pham PA-C. PREOPERATIVE DIAGNOSES: 1. Status [...] stepwise fashion using absorbable suture. We placed Taylor-Teez.by tongs and then flipped the patient prone [...] all critical portions. MARKY GONZALEZ MD MMK/MODL /[id number] cc: MARKY GONZALEZ MD documented in this [...] the risk. She has been on these long term care phlebotomist, desires to eventually come off. She also [...] with any questionsor concerns. He Reyes M.D. [facility] [phone] HISTORY OF PRESENT ILLNESS: Per Chart Review: [...] - headache Opioid prescriber: LEDY Ojeda MD-valium [facility] database review: Risk Factors: History of [...] CURRENT MEDICATIONS: Current Facility-Administered Medications [facility] in [facility] Medication Dose Route Frequency Provider Last Rate [...] Lois Pham PA-C ??? glucose-ascorbic acid (aka [id number]) chewable tablet 4 Tab 4 Tab Oral [...] 3 mL Intravenous Q8H Lois Pham PA-C ? ? sodium chloride 0.9% injection [...] TIME SPENT: 70 minutes including 50% time hogd-ep-nhwb time counseling her about her diagnosis and treatment options, and coordinating care with the primary team. DECISION-MAKING: The level of decision-making in this case is high/complex due to the complexity of medical problems, acute/chronic pain, opioid analgesia issues, and behavioral factors. documented in this encounter Miscellaneous Notes OR Nursing - Monica Ptae, RN - 02/20/2018 2:49 PM CDT [facility] Progress Note Patient Name: Angie Bender [...] failure. Anatomic alignment. Shoulder prosthesis. Sirisha Maher PHYSICAL THERAPIST TECHNICIAN, HEATING FIXTURE TENDER RAD GD (ABNORMAL) Complete Blood Count-No Diff (02/22/2018 12:36 PM CDT) athologist Signature WBC 10.2 4.0 - 11.0 [facility] RBC 3.36 (L) 4.0 - 5.2 [facility] Hemoglobin 11.1 (L) 12.0 - 16.0 [facility] g/dl [facility] HCT 33.2 (L) 36.0 - 46.0 [facility] MCV 98.8 80 - 100 fl [facility] MCH 33.0 26 - 34 pg [facility] MCHC 33.4 32 - 36 [facility] g/dl [facility] RDW 14.4 11.5 - 14.5 [facility] Platelets 183 150 - 450 [facility] MPV 10.6 9.4 - 12.4 [facility] Specimen Anatomical Collection Method Collection Time Receive d Time (Source) Location / / Volume Laterality 02/22/2018 12:36 02/22/2018 PM CDT 12:37 PM CDT Narrative [facility] - 02/22/2018 12:46 PM C DT Performed at [facility] , [address] [place] [address] Lois Pham PA-C LAB_1 Performing Organization Address City/State/ZIP Code Phon e Number [facility] [address] [place] [address] [address], [facility] [phone] XR Cervical Spine AP/Lat Upright (02/21/2018 9:50 [...] Marky Gonzalez MD LAB_1 Performing Organization Address City/[facility] Phon e Number [address] [address] [place] [address], [facility] (ABNORMAL) Basic Metabolic Panel (02/21/2018 7:12 AM [...] Est., If >60 >60 [facility] Black ml/min/1.7 [facility] 3m2 Specimen Anatomical Collection Method Collection Time Receive d Time (Source) Location / / Volume Laterality 02/21/2018 7:12 AM 8 7:13 CDT AM CDT Narrative [facility] - 02/21/2018 7:47 AM CD T Performed at [facility] , [address] [place] [address] Lois Pham PA-C LAB_1 Performing Organization Address [facility]/ZIP [facility] Phon e Number [address] [address] [place] [address], [facility] (ABNORMAL) Hemogram with Plts (02/21/2018 7:12 AM CDT) athologist Signature WBC 10.0 4.0 - 11.0 [facility] RBC 3.29 (L) 4.0 - 5.2 [facility] Hemoglobin 10.7 (L) 12.0 - 16.0 [facility] g/dl HOSPITAL HCT 32.2 (L) 36.0 - 46.0 [facility] MCV 97.9 80 - 100 fl [facility] MCH 32.5 26 - 34 pg [facility] MCHC 33.2 32 - 36 [facility] g/dl HOSPITAL RDW 13.9 11.5 - 14.5 [facility] Platelets 186 150 - 450 [facility] MPV 10.3 9.4 - 12.4 [facility] Specimen Anatomical Collection Method Collection Time Receive d Time (Source) Location / / Volume Laterality 02/21/2018 7:12 AM 8 7:13 CDT AM CDT Narrative [facility] - 02/21/2018 7:26 AM CD T Performed at [facility] , [address] [place] [address] Lois Pham PA-C LAB_1 Performing Organization Address City/[facility] Phon e Number [address] [address], [facility] Glucose, Whole Blood POC (02/20/2018 11:20 PM CDT) athologist Signature Glucose, Whole 140 70 - 180 [facility] Blood mg/dl [facility] Comment: Point of Care Testing No Action Required Specimen Anatomical Collection Method Collection Time Receive d Time (Source) Location / / Volume Laterality 02/20/2018 11:20 02/20/2018 PM CDT 11:26 PM CDT Marky Gonzalez MD LAB_1 Performing Organization Address City/[facility] Phon e Number [address] [address], [facility] Glucose, Whole Blood POC (02/20/2018 5:05 PM CDT) athologist Signature Glucose, Whole 145 70 - 180 [facility] Blood mg/dl [facility] Comment: Point of Care Testing No Action Required Specimen Anatomical Collection Method Collection Time Receive d Time (Source) Location / / Volume Laterality 02/20/2018 5:05 PM 8 5:25 CDT PM CDT Marky Gonzalez MD LAB_1 Performing Organization Address City/State/ZIP Code Phon e Number [address] [address], [facility] Glucose, Whole Blood POC (02/20/2018 3:45 PM CDT) athologist Signature Glucose, Whole 145 70 - 180 [facility] Blood mg/dl HOSPITAL Comment: Point of Care Testing No Action Required Specimen Anatomical Collection Method Collection Time Receive d Time (Source) Location / / Volume Laterality 02/20/2018 3:45 PM 8 3:52 CDT PM CDT Marky Gonzalez MD LAB_1 Performing Organization Address City/[facility]/ZIP Code Phon e Number [address] [address], [facility] XR C-Arm 0-30 Minutes (02/20/2018 2:05 PM CDT) Anatomical Region Laterality Modality Other Specimen (Source) Anatomical Location Collection Method / Collectio n Time Received Time / Laterality Volume Narrative 02/20/2018 2:06 PM CDT Fluoroscopy provided by a echocardiography technologist. Exact fluoroscopy time is documented in end of exam information in EPIC Marky Gonzalez MD RAD GD XR C-Arm 2.5-3 Hours (02/20/2018 12:45 PM CDT) Anatomical Region Laterality Modality Other Specimen (Source) Anatomical Location Collection Method / Collectio n Time Received Time / Laterality Volume Narrative 02/20/2018 12:45 PM CDT Fluoroscopy provided by a echocardiography technologist. Exact fluoroscopy time is documented in end of exam information in EPIC Marky Gonzalez MD RAD GD XR C-Arm 30-59 Minutes (02/20/2018 12:36 PM CDT) Anatomical Region Laterality Modality Other Specimen (Source) Anatomical Location Collection Method / Collectio n Time Received Time / Laterality Volume Narrative 02/20/2018 12:36 PM CDT Fluoroscopy provided by a echocardiography technologist. Exact fluoroscopy time is documented in end of exam information in EPIC Marky Gonzalez MD RAD GD Glucose, Whole Blood POC (02/20/2018 9:02 AM CDT) athologist Signature Glucose, Whole 135 70 - 180 [facility] Blood mg/dl [facility] Comment: Point of Care Testing RN Notified Specimen Anatomical Collection Method Collection Time Receive d Time (Source) Location / / Volume Laterality 02/20/2018 9:02 AM 8 9:08 CDT AM CDT Marky Gonzalez MD LAB_1 Performing Organization Address City/[facility]/ZIP Code Phon e Number [address] [address] [place] [address], [facility] Glucose, Whole Blood POC (02/20/2018 6:25 AM CDT) athologist Signature Glucose, Whole 90 70 - 180 [facility] Blood mg/dl [facility] Specimen Anatomical Collection Method Collection Time Receive d Time (Source) Location / / Volume Laterality 02/20/2018 6:25 AM 8 6:34 CDT AM CDT Marky Gonzalez MD LAB_1 Performing Organization Address City/[facility]/ZIP Code Phon e Number [address] [address], [facility] ABO/RH(D) Retype (02/20/2018 6:22 AM CDT) athologist Signature ABO/RH(D) A NEGATIVE [facility] Specimen Anatomical Collection Method Collection Time Receive d Time (Source) Location / / Volume Laterality 02/20/2018 6:22 AM 8 6:25 CDT AM CDT Narrative [facility] - 02/20/2018 7:06 AM CD T Performed at [facility] , [address] [place] [address] Marky Gonzalez MD LAB_1 Performing Organization Address City/[facility]/ZIP Code Phon e Number [address] [address], [facility] [phone] INR/Protime (PT/INR) (02/20/2018 6:08 AM CDT) P athologist Signature Protime 13.0 12.0 - 14.5 [facility] INR 1.0 0.9 - 1.1 [facility] Specimen Anatomical Collection Method Collection Time Receive d Time (Source) Location / / Volume Laterality 02/20/2018 6:08 AM 8 6:22 CDT AM CDT Narrative [facility] - 02/20/2018 6:40 AM CD T Performed at [facility] , [address] [place] [address] Sirisha Maher APRN, CNP LAB_1 Performing Organization Address City/[facility] Phon e Number [address] [address] [place] [address], [facility] Hemogram with Platelets (02/20/2018 6:08 AM CDT) P athologist Signature WBC 6.7 4.0 - 11.0 [facility] RBC 4.13 4.0 - 5.2 [facility] Hemoglobin 13.5 12.0 - 16.0 [facility] gdl [facility] HCT 39.8 36.0 - 46.0 [facility] MCV 96.4 80 - 100 [facility] MCH 32.7 26 - 34 pg [facility] MCHC 33.9 32 - 36 [facility] RDW 13.8 11.5 - 14.5 [facility] Platelets 245 150 - 450 [facility] MPV 10.6 9.4 - 12.4 [facility] Specimen Anatomical Collection Method Collection Time Receive d Time (Source) Location / / Volume Laterality 02/20/2018 6:08 AM 8 6:22 CDT AM CDT Narrative [facility] - 02/20/2018 6:32 AM CD T Performed at [facility] , [address] [place] [address] Sirisha Maher APRN, HEATING FIXTURE TENDER LAB_1 Performing Organization Address City/[facility]/ZIP [facility] Phon e Number [address] [address], [facility] (ABNORMAL) Basic Metabolic Panel (02/20/2018 6:08 AM CDT) athologist Signature Sodium 139 136 - 145 [facility] mmol/L [facility] Potassium 4.4 3.5 - 5.1 [facility] mmol/L HOSPITAL Comment: Specimen Slightly Hemolyzed Hemolysis May Affect Result Chloride 109 98 - 109 mmol/L [facility] CO2 18 (L) 20 - 29 mmol/L [facility] L Anion Gap (calc.) 12 7 - 16 mmol/L [facility] Glucose 96 70 - 180 mg/dl [facility] L Calcium 9.4 8.4 - 10.2 mg/dl [facility] EHSAN BUN 14 7 - 26 mg/dl [facility] Creatinine 0.69 0.55 - 1.02 mg/dl [facility] GFR, Estimated >60 >60 ml/min/1.73m2 [facility] GFR, Est., If Black >60 >60 ml/min/1.73m2 [facility] Specimen Anatomical Collection Method Collection Time Receive d Time (Source) Location / / Volume Laterality 02/20/2018 6:08 AM 8 6:22 CDT AM CDT [facility] - 02/20/2018 6:52 AM CD T Performed at [facility] , [address] [place] [address] Sirisha Maher APRN, HEATING FIXTURE TENDER LAB_1 Performing Organization Address City/State/ZIP Code Phon e Number [address] [address], [facility] aPTT (Activated Partial Thromboplastin Time) (02/20/2018 6:08 AM CDT) athologist Signature PTT 26.8 24.0 - 37.0 [facility] sec [facility] Specimen Anatomical Collection Method Collection Time Receive d Time (Source) Location / / Volume Laterality 02/20/2018 6:08 AM 8 6:22 CDT AM CDT [facility] - 02/20/2018 6:40 AM CD T Performed at [facility] , [address] [place] [address] Sirisha Celaya Sneha Maher APRN, HEATING FIXTURE TENDER LAB_1 Performing Organization Address City/[facility]/ZIP Code Phon e Number [address] [address], [facility] [phone] ABO Rh & Antibody Screen (Type & Screen) (02/20/2018 6:07 AM CDT) [facility] gist Method Time Signature Crossmatch 02/23/2018 [facility] ABO/RH(D) A NEGATIVE [facility] Antibody NEGATIVE [facility] Screen HOSPITAL Specimen Anatomical Collection Method Collection Time Receive d Time (Source) Location / / Volume Laterality 02/20/2018 6:07 AM 8 6:22 CDT AM CDT Narrative [facility] - 02/20/2018 7:10 AM CD T Performed at [facility] , [address] [place] [address] Sirisha Maher APRN, HEATING FIXTURE TENDER LAB_1 Performing Organization Address City/[facility] Phon e Number [address] [address], [facility] [phone] EKG IP (02/20/2018 12:00 AM CDT) Specimen (Source) Anatomical Location Collection Method / Collectio n Time Received Time / Laterality Volume 02/20/2018 Narrative This result has an attachment that is no t available. Provider [facility] EKG documented in this encounter Visit [...] Segura, RN - 02/23/2018 9:57 AM CDT [facility] Plan of Care Note Assessment: Incisions [...] Carbajal RN - 02/23/2018 7:43 AM CDT [facility] Plan of Care Note Assessment: pain [...] Rico RN - 02/22/2018 10:15 PM CDT [facility] Plan of Care Note Assessment: comfort [...] Rico RN - 02/22/2018 4:00 PM CDT [facility]. MD Notified Note Name of MD notified: Ankit Time of MD notification: 1600 hours and 1 minute Reason: Pt.asking for valium now and current order for HS prn. plz review. [id number]. Response: Valium one time dose now and HS prn. Shawn Butcher RN --- End of Report --- Plan of Care - Alec Gifford RN - 02/22/2018 1:57 PM CDT [facility] Plan of Care Note Assessment: pain [...] Lundberg RN - 02/22/2018 2:32 AM CDT [facility] Plan of Care Note Assessment: Pain [...] Orellana RN - 02/22/2018 12:33 AM CDT [facility] Plan of Care Note Assessment: Pain [...] Gifford RN - 02/21/2018 1:41 PM CDT [facility] Plan of Care Note Assessment: pain [...] Lundberg RN - 02/21/2018 4:56 AM CDT [facility]. MD Notified Note Name of MD notified: Neurosurg Time of MD notification: 0400 hours and 55 minutes Reason: [id number]- Pt reporting oral/IV pain meds ineffective. Pt upset, req further intervention. Please advise. Thanks. Response: Discussed w/ neurosurg. To be addressed in AM and PRNs to continue to be administered as able. Anita Lundberg RN --- End of Report --- Plan of Care - Anita Lundberg RN - 02/21/2018 2:26 AM CDT [facility] Plan of Care Note Assessment: Pain [...] and Signs and Symptoms Outcome: Progressing 02/20/18 3436 Pain, Acute Related Risk Factors (Acute Pain) surgery;procedure/treatment;persistent pain;disease process Signs and Symptoms (Acute Pain) alteration in muscle tone;sleep pattern alteration;verbalization of pain descriptors;questions meaning of pain;pacing/restlessness Goal: Acceptable Pain Control/Comfort Level 02/20/18 2356 Pain, Acute (Adult) Acceptable Pain Control/Comfort Level unable to achieve outcome Comments: [facility] Plan of Care Note Assessment: posterior neck pain worst than anterior Plan: IHR, assessment, pain control Subjective: I thought that I was going to be on a dilaudid drip Objective: Pt angry that she was not on a WARRANTY CLERK pump, Dilaudid PO and IV given q3h, [...] 10:32 AM CDT 2 Patches lidocaine-epinephrine 1 %-1:[id number] injec tion Given 02/20/2018 10:21 AM CDT [...] vider: Alec Gifford RN)1958 (Given - Provider: Jduith Orellana RN) 0743 (Given - Provider: Alec [...] Gifford RN) 0820 (Given - Provider: Marlen Seugra, RADHA) 5 mg, Oral, DAILY, First dose [...] HS
documented in this encounter Care Teams Client Partner Relationship Specialty Start Date End Date Jose Holden MD PCP - General Otolaryngology 12/14/[address] [place] [address] documented as of this encounter
--- OUTSIDE RECORDS SUMMARY | 2022-07-06 15:55 | XMS_ITS | Encounter Summary ---
:1965 Author Organization [facility] Address [address], [place] [address] Care Team Providers Name Role Phone Jose Holden MD Primary Care Provider [phone] Reason for Visit Auth/Cert Specialty Diagnoses / [...] Expiration Date Visits Requ ested Visits Authorized [id number] 1 1 Encounter Details Date Type Department Care Team Description 02/20/2018 [facility] Pete Gonzalez MD [address] [place] [address] [place] [address] [phone] (Wo rk) Social History Tobacco Use Types [...] filedocumented in this encounter Care Teams Factory Helper Relationship Specialty Start Date End Date Jose Holden MD PCP - General Otolaryngology 12/14/[address] [place] [phone] (work) documented as of this encounter
--- OUTSIDE RECORDS SUMMARY | 2022-07-06 15:55 | XMS_ITS | Encounter Summary ---
:1965 Author Organization [facility] Address [address], [place] [address] Care Team Providers Name Role Phone Jose Holden MD Primary Care Provider [phone] Reason for Visit Auth/Cert Specialty Diagnoses / [...] Expiration Date Visits Requ ested Visits Authorized [id number] 1 1 Encounter Details Date Type Department Care Team Description 02/20/2018 [facility] Pete Gonzalez MD [address] [place] [address] [place] [address] [phone] (Wo rk) Social History Tobacco Use Types [...] 12:45 PM CDT Fluoroscopy provided by a radiology asst. Exact fluoroscopy time is documented in end of exam information in EPIC Pete Gonzalez MD RAD GD documented in this encounter Visit Diagnoses Not on filedocumented in this encounter Care Teams Wire Winding Machine Tender Relationship Specialty Start Date End Date Jose Holden MD PCP - General Otolaryngology 12/14/17 [facility] [place] [address] documented as of this encounter
--- OUTSIDE RECORDS SUMMARY | 2022-07-06 15:55 | XMS_ITS | Encounter Summary ---
:1965 [facility] Address [address] [place] [address] Care Team Providers Name Role Phone Jose Holden MD Primary Care Provider [phone] Encounter Details Date Type Department Care Team Description 02/13/2018 Orders Only External to [facility] External, [place] [address] Social History Tobacco Use Types Packs/Day Years [...] on filedocumented in this encounter Care Teams Department Head [employer] Relationship Specialty Start Date End Date Jose Holden MD PCP - General Otolaryngology 12/14/17 [place] [address] documented as of this encounter
--- OUTSIDE RECORDS SUMMARY | 2022-07-06 15:55 | XMS_ITS | Encounter Summary ---
:1965 Author Organization [facility] Address [address], [place] [address] Care Team Providers Name Role Phone Jose Holden MD Primary Care Provider [phone] Encounter Details Date Type Department Care Team Description 02/13/2018 Orders Only External to Jose Holden MD [address] [place], [place] [address] (Wo rk) Social History [...] on filedocumented in this encounter Care Teams Cnc Specialist Relationship Specialty Start Date End Date Jose Holden MD PCP - General Otolaryngology 12/14/17 [address] [place] [address] documented as of this encounter
--- OUTSIDE RECORDS SUMMARY | 2022-07-06 15:55 | XMS_ITS | Encounter Summary ---
:1965 Author Organization [facility] Address [address] [place] [address] Care Team Providers Name Role Phone Jose Holden MD Primary Care Provider [phone] Encounter Details Date Type Department Care Team Description 02/07/2018 [facility] Chava Simon RN [facility] [address] [place] [address]. [place] [address] Social History Tobacco Use Types [...] her pre-op is scheduled for 02/13/18 at [facility]. Clinic fax # was given. Patient will have clearance note faxed to clinic. Will post pone message to after the to check and see if pre-op has been received yet. Michael Cruz - 02/08/2018 1:37 PM CDT [facility] Michael Cruz 02/08/2018, 1:37 PM Michael Cruz Porfirio - 02/07/2018 11:27 AM CDT [facility] Michael Monroy Anthony 02/07/2018, 11:27 AM [...] on filedocumented in this encounter Care Teams Carton Making Machine Operator Relationship Specialty Start Date End Date Jose Holden MD PCP - General Otolaryngology 12/14/17 [facility] [place] [address] documented as of this encounter
--- OUTSIDE RECORDS SUMMARY | 2022-07-06 15:55 | XMS_ITS | Encounter Summary ---
:1965 [facility] Address [address], [place] [address] Care Team Providers Name Role Phone Jose Holden MD Primary Care Provider [phone] Reason for Visit Auth/Cert Specialty Diagnoses / [...] Expiration Date Visits Requ ested Visits Authorized [id number] 1 1 Encounter Details Date Type Department Care Team Description 02/21/2018 [facility] Pete Gonzalez MD [address] [place] [address] [place] [address] [phone] (Wo rk) Social History Tobacco Use Types [...] on filedocumented in this encounter Care Teams Welding Machine Operator Thermit Relationship Specialty Start Date End Date Jose Holedn MD PCP - General Otolaryngology 12/14/[address] [place] [id number] documented as of this encounter
--- OUTSIDE RECORDS SUMMARY | 2022-07-06 15:56 | XMS_ITS | Encounter Summary ---
:1965 Author Organization [facility] Address [address] [address] Care Team Providers Name Role Phone Jose Holden MD Primary Care Provider [phone] Reason for Visit Reason Comments Consult, New Patient vocal cord analysis Consult/Transfer Care (Routine) - Closed Specialty Diagnoses / Procedures Referred By Contact Refer red To Contact Diagnoses Pseudarthrosis after fusion or arthrodesis Screening procedure Pete Gonzalez MD [address] [place] [place] [address] Referral ID Status Reason Start Date Expiration Date Visits Requ ested Visits Authorized [id number] Closed 11/29/2017 02/28/2019 1 1 Encounter Details Date Type Department Care Team Description 12/26/2017 Office Visit Specialty Center Jose Holden Cer vical vertebral 401 Otolaryngology MD Deyvi fusion (Primary Dx) [address] [place] [address] [place] [phone] Social History Tobacco Use Types Packs/Day Years [...] (166 lb 12.8 oz) 12/26/2017 2:06 PM MEDICAL LEAD Height - - Body Mass Index 32.58 11/29/2017 10:21 AM MEDICAL LEAD documented in this encounter Progress Notes Jose Holden MD - 12/26/2017 3:00 PM CST HPI: Angie Mosquera is a 52 y.o. old female who presents for vocal cord evaluation prior to cervical spine surgery. Patient has significant history of cervical spine surgery having approximate four procedures, three in [place] one here in the [place] area last year. After her last surgery, developed significant hoarseness, loss of voice for approximately three months. Cervical approach with her last surgery was left-hand side. States that she was evaluated by a sports medicine masseur and there were plans for a procedure [...] times per day. 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 Not currently working. [...] software and may contain unintended word substitutions. 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
--- OUTSIDE RECORDS SUMMARY | 2022-07-06 15:56 | XMS_ITS | Encounter Summary ---
:1965 [facility] Address [address] [place] [address] Care Team Providers Name Role Phone Jose Holden MD Primary Care Provider [phone] Encounter Details Date Type Department Care Team Description 01/17/2018 Telephone [facility] Chava Simon RN [facility] Neuro[facility] [address] [facility] [place] [address] Social History Tobacco Use Types [...] in. Chava Simon RN 01/17/2018, 1:26 PM L PAINTER documented in this encounter Plan of Treatment Not on filedocumented as of this encounter Visit Diagnoses Not on filedocumented in this encounter Care Teams Fundraiser Relationship Specialty Start Date End Date Jose Holden MD PCP - General Otolaryngology 12/14/17 [address] [place] [address] documented as of this encounter
--- OUTSIDE RECORDS SUMMARY | 2022-07-06 15:56 | XMS_ITS | Encounter Summary ---
:1965 Author Organization [facility] Address [address] [address] Care Team Providers Name Role Phone Jose Holden MD Primary Care Provider [phone] Encounter Details Date Type Department Care Team Description 12/02/2017 Orders Only External to Pete Gonzalez MD [address] [place], [place] [address] (Wo rk) Social History Tobacco Use Types [...] 12/02/2017 12:00 AM Resul ts for this HACKSAW INSPECTOR procedure are i n the results section. documented in this encounter Results MRI SPINE--SCAN (12/02/2017 12:00 AM HACKSAW INSPECTOR) Anatomical Region Laterality Modality Other Specimen (Source) Anatomical Location Collection Method / Collectio n Time Received Time / Laterality Volume 12/02/2017 Narrative This result has an attachment that is no t available. Pete Gonzalez MD DUMMY/OTHER/AR documented in this encounter Visit Diagnoses Not on filedocumented in this encounter Care Teams Hand Packer Relationship Specialty Start Date End Date Jose Holden MD PCP - General Otolaryngology 12/14/17 [address] [place], [place] [address] documented as of this encounter
--- OUTSIDE RECORDS SUMMARY | 2022-07-06 15:56 | XMS_ITS | Encounter Summary ---
:1965 Author Organization [facility] Address [address], [place] [address] Care Team Providers Name Role Phone Unassigned, Provider Primary Care Provider Unavailable Reason for Visit Procedure/Equipment (Routine) - Incomplete Specialty Diagnoses / Procedures Referred By Contact Refer red To Contact Diagnoses Screening procedure Pseudarthrosis after fusion or arthrodesis Pete Gonzalez MD Procedures XR Cervical Spine W Flex And Ext [address] [place] [address] Referral ID Status Reason Start Date Expiration Date Visits V isits Requested Authorized [id number] Incomplete 10/31/2017 01/30/2019 1 1 Encounter Details Date Type Department Care Team Description 11/29/2017 [facility] Screening procedure Neuroscience Center [address] [facility] Radiology [place], [place] [address] [address] [place] [address] [phone] Social History Tobacco Use Types Packs/Day Years [...] dure Results for this FLEX AND EXT STRATEGIC PROCUREMENT MANAGER procedure are i n the results section. documented in this encounter Results XR Cervical Spine W Flex And Ext (11/29/2017 9:54 AM STRATEGIC PROCUREMENT MANAGER) Anatomical Region Laterality Modality Spine, C-Spine, Neck Computed Radiograph y Specimen (Source) Anatomical Collection Method Collection Time Re ceived Time Location / / Volume Laterality 11/29/2017 9:54 AM STRATEGIC PROCUREMENT MANAGER Narrative 11/29/2017 10:59 AM STRATEGIC PROCUREMENT MANAGER XR CERVICAL SPINE W FLEX AND EXT [...] condition documented in this encounter Care Teams Water/Wastewater Engineer Relationship Specialty Start Date End Date Unassigned, Provider PCP - General 08/05/03 12/13/[address] [place] [address] documented as of this encounter
--- OUTSIDE RECORDS SUMMARY | 2022-07-06 15:56 | XMS_ITS | Encounter Summary ---
:1965 Author Organization [facility] Address [address] [place] [address] Care Team Providers Name Role Phone Unassigned, Provider Primary Care Provider Unavailable Encounter Details Date Type Department Care Team Description 11/04/2005 [facility] Curtis Antoine Op Report-Archive [address] StreetBritton García [place] [address] [facility] [phone] [place] [address] Social History Tobacco Use Types Packs/Day Years Used Date Smoking Tobacco: Never Assessed Sex Assigned at Date Recorded Not on file documented as of this encounter Plan of Treatment Not on filedocumented as of this encounter Visit Diagnoses Not on filedocumented in this encounter Care Teams Copper Miner Relationship Specialty Start Date End Date Unassigned, Provider PCP - General 08/05/03 12/13/17 [address] [place] [address] documented as of this encounter
--- OUTSIDE RECORDS SUMMARY | 2022-07-06 15:56 | XMS_ITS | Encounter Summary ---
:1965 [facility] Address [address], [place] [address] Care Team Providers Name Role Phone Jose Holden MD Primary Care Provider [phone] Reason for Visit Therapies (Routine) - Closed Specialty Diagnoses / Procedures Referred By Contact Refer red To Contact Diagnoses Pseudarthrosis after fusion or arthrodesis Screening procedure Pete Gonzalez MD [address] [place] [address] Referral ID Status Reason Start Date Expiration Date Visits Requ ested Visits Authorized [id number] Closed 11/29/2017 01/28/2018 1 1 Encounter Details Date Type Department Care Team Description 12/26/2017 Office Visit Pete Orona MD [address] [place] [address] Pharyngeal dysphagia Neuro[facility] Center Kaykay Wyman INVERTEBRATE PALEONTOLOGIST [address] [place], [place] [phone] (Primary Dx) Speech Therapy [address] [place] [address]. [id number] [id number] Social History Tobacco Use Types Packs/Day Years Used Date Smoking Tobacco: Every Day Cigarettes 0.5 Smokeless Tobacco: Never Alcohol Use Standard Drinks/Week Comments No 0 (1 standard drink = 0.6 oz pure alcoho l) Sex Assigned at Date Recorded Not on file documented as of this encounter Patient Instructions Patient InstructionsKaykay Wyman SLP - 12/26/2017 12:30 PM CHEMICALS FERMENTATION OPERATOR You had a swallow test today. I [...] sensation of food catching. Kaykay Monroy MA CCC/INVERTEBRATE PALEONTOLOGIST Speech-Language Pathologist M-F Office: [phone] ICALS FERMENTATION OPERATOR documented in this encounter Progress Notes Kaykay Wyman, INVERTEBRATE PALEONTOLOGIST - 12/26/2017 12:30 PM CST SPEECH LANGUAGE PATHOLOGY MODIFIED BARIUM SWALLOW INITIAL EVALUATION ASSESSMENT Patient is referred for dysphagia evaluation as part of surgical consultation related to past ACDF 1year ago in [place] with consideration of revision ACDF surgery in [...] food sticking, especially on textures that are label drier (meats, breads, etc). I would anticipate [...] goals established as no further intervention from INVERTEBRATE PALEONTOLOGIST service is warranted at this time. VISIT [...] Total Treatment Time: 45 minutes Kaykay Monroy CCC-INVERTEBRATE PALEONTOLOGIST 12/26/2017 documented in this encounter Plan of Treatment Scheduled Referrals Name Type Priority Associated Diagnoses Order S chedule Speech Therapy Referral Routine Pseudarthrosis after fusio n or Ordered: 11/29/2017 arthrodesis Screening procedure documented as of this encounter Visit Diagnoses Diagnosis Pharyngeal dysphagia - Primary Dysphagia, pharyngeal phase documented in this encounter Care Teams Photo Checker Relationship Specialty Start Date End Date Jose Holden MD PCP - General Otolaryngology 12/14/17 [place] [address] documented as of this encounter
--- OUTSIDE RECORDS SUMMARY | 2022-07-06 15:56 | XMS_ITS | Encounter Summary ---
:1965 Author Organization [facility] Address [address] [place] [address] Care Team Providers Name Role Phone Unassigned, Provider Primary Care Provider Unavailable Encounter Details Date Type Department Care Team Description 12/13/2006 [facility] Curtis Antoien Op Report-Archive [address]Britton García [place] [address] [facility] [phone] [place] [address] Social History Tobacco Use Types Packs/Day Years Used Date Smoking Tobacco: Never Assessed Sex Assigned at Date Recorded Not on file documented as of this encounter Plan of Treatment Not on filedocumented as of this encounter Visit Diagnoses Not on filedocumented in this encounter Care Teams Loin Puller Relationship Specialty Start Date End Date Unassigned, Provider PCP - General 08/05/03 12/13/17 [address] [place] [address] documented as of this encounter
--- OUTSIDE RECORDS SUMMARY | 2022-07-06 15:56 | XMS_ITS | Encounter Summary ---
:[address] [facility] Address [address], [place] [address] Care Team Providers Name Role Phone Unassigned, Provider Primary Care Provider Unavailable Reason for Referral Procedure/Equipment (Routine) - Incomplete Specialty Diagnoses / Procedures Referred By Contact Refer red To Contact Diagnoses Screening procedure Pseudarthrosis after fusion or arthrodesis Pete Gonzalez MD Procedures FL Video Swallow Study [address] [place] [address] Referral ID Status Reason Start Date Expiration Date Visits V isits Requested Authorized [id number] Incomplete 11/29/2017 02/28/2019 1 1 herapies (Routine) - Closed Specialty Diagnoses / Procedures Referred By Contact Refer herson To Contact Diagnoses Pseudarthrosis after fusion or arthrodesis Screening procedure Pete Gonzalez MD [address] [place] [address] Referral ID Status Reason Start Date Expiration Date Visits Requ ested Visits Authorized [id number] Closed 11/29/2017 01/28/2018 1 1 Scheduling Instructions Your provider has recommended an appoint ment with a [facility] Speech Therapist. Please stop at the clinic check out desk for as sistance with scheduling or if you prefer to call for your appointment you may call [facility] at [phone]. We suggest you call your [facility] insurance company about your coverage and benefits for this appointment. ATING ROOM REGISTERED NURSE Consult/Transfer Care (Routine) - Closed Specialty Diagnoses / Procedures Referred By Contact Refer red To Contact Diagnoses Pseudarthrosis after fusion or arthrodesis Screening procedure Pete Gonzalez MD [address] [place] [address] Referral ID Status Reason Start Date Expiration Date Visits Requ ested Visits Authorized [id number] Closed 11/29/2017 02/28/2019 1 1 Scheduling Instructions Your provider has recommended an appoint ment with [facility]. You may call [phone], optio n [phone], to schedule your appointment. If you prefer, a operations tech will contact you heena hebert the next 3 business days to assist you in setting up this appointment. We suggest you call your health insurance company about your coverage and benefits for this appo intment. ATING ROOM REGISTERED NURSE Procedure/Equipment (Routine) - Incomplete Specialty Diagnoses / Procedures Referred By Contact Refer red To Contact Diagnoses Screening procedure Pseudarthrosis after fusion or arthrodesis Pete Gonzalez MD Procedures XR Cervical Spine W Flex And Ext [address] [place] [address] Referral ID Status Reason Start Date Expiration Date Visits V isits Requested Authorized [id number] Incomplete 10/31/2017 01/30/2019 1 1 ATING ROOM REGISTERED NURSE Reason for Visit Reason Comments SECOND OPINION Consult/Transfer Care (Routine) - Closed Specialty Diagnoses / Procedures Referred By Contact Refer red To Contact Neurosurgery Ihsan Brooke MD [facility]tho [address] [place] [address] [place] [address]. [place] [address] Phone: Fax: Referral ID Status Reason Start Date Expiration Date Visits Requ ested Visits Authorized [id number] Closed 09/26/2017 12/26/2018 1 1 Encounter Details Date Type Department Care Team Description 11/29/2017 Office Visit [facility] Pete Gonzalez, Pseudarthr osis after fusion or arthrodesis (Primary Dx); [facility] Cervical spondylosis with radiculopathy; Neurosurgery/Ortho [address] [place] Bilater al occipital neuralgia; Spine [address] Screening procedure [address] [place] [address] [place] [address] [phone] Social History Tobacco Use Types Packs/Day Years Used Date Smoking Tobacco: Every Day Cigarettes 0.5 Smokeless Tobacco: Never Alcohol Use Standard Drinks/Week Comments No 0 (1 standard drink = 0.6 oz pure alcoho l) Sex Assigned at Date Recorded Not on file documented as of this encounter Last Filed Vital Signs Vital Sign Reading Time Taken Comments Blood Pressure 126/77 11/29/2017 10:21 AM OPERATING ROOM REGISTERED NURSE Pulse 77 11/29/2017 10:21 AM OPERATING ROOM REGISTERED NURSE Temperature - - Respiratory Rate - - Oxygen Saturation - - Inhaled Oxygen Concentration - - Weight 75.4 kg (166 lb 3.2 oz) 11/29/2017 10:21 AM OPERATING ROOM REGISTERED NURSE Height 152.4 cm (5') 11/29/2017 10:21 AM OPERATING ROOM REGISTERED NURSE Body Mass Index 32.46 11/29/2017 10:21 AM OPERATING ROOM REGISTERED NURSE documented in this encounter Patient Instructions Patient InstructionsChava Simon RN - 11/29/2017 10:00 AM CST [facility] Patient Instructions Tests: You will be scheduled [...] your understanding. Please call the Neurosurgery Center [phone] with any further questions or concerns or if your symptoms worsen. Thank you for coming to see us today. We are your partner. ATING ROOM REGISTERED NURSE documented in this encounter Progress Notes Lois Pham PA-C - 11/29/2017 10:00 AM CST NEW CONSULT Dr. GONZALEZ - NEURO/SPINE CC: Headaches, neck pain, arm pain HPI: Angie Mosquera is a 52 y.o. old female who was seen today in the Neurosurgery Clinic. She is seen in evaluation as a second opinion from Dr. Ihsan Brooke. She has a history of multiple previous spine surgeries, including most recently a C6-T1 ACDF by Dr. Brooke just over a year ago for pseudoarthrosis C6-T1 after C3-T1 posterior cervical fusion done at [facility] in [place] multiple years ago. The T1 screws are [...] on fentanyl, ms contin and oxycontin in [place]. PSURGHX:No past surgical history on file. PMEDHX:No past medical history on file. MEDICATIONS: Outpatient Prescriptions as of 11/29/2017: benzonatate (TESSALON) 100 MG capsule Take 100 mg by mouth. Note (11/29/2017): Received from: [employer] [facility] [employer] [facility] Received Sig: Take 1 capsule by mouth 3 times daily if needed for Cough. Disp: Rfl: budesonide-formoterol (SYMBICORT) 160-4.5 MCG/ACT inhaler Inhale 2 Puffs. Note (11/29/2017): Received from: [employer] [facility] [employer] [facility] Received Sig: INHALE 2 PUFFS BY [...] Tab by mouth. Note (11/29/2017): Received from: [employer] [facility] Received Sig: Take 1 tablet bymouth 2 [...] No narrative on file ROS: Reviewed per [facility] Neurosurgery New Patient Health Packet History was [...] 4/5 C7 Triceps: 5/5 4/5 C8 Finger flexors/broom machine operator: 5/5 5/5 T1 Intrinsics: 5/5 5/5 Sensation: Intact with light touch bue/ble. Skin: Warm to touch to bilateral upper/lower extremities. No skin rashes or lesions noted RADIOLOGY: Personally reviewed CT scans from OSH as well as XR from here. No formal report for either available. Shows previous C3-T1 posterior fusion, appears fused C3-C6, screws at T1 appear lose. [id number] through the facet joint. ASSESSMENT: 52 year old female s/p multiple previous cervical spine surgeries including C3-T1 posterior fusion (done in [place] approx 6 years ago), with C6-T1 pseudoarthrosis, [...] of the chart to: Ihsan Brooke MD [address] [id number] Lois Pham PA-C, 11/29/2017, 12:34 PM ATING ROOM REGISTERED NURSE documented in this encounter Plan of Treatment Scheduled Referrals Name Type Priority Associated Diagnoses Order S chedule Otolaryngology Consult Referral Routine Pseudarthrosis aft er Ordered: Adult/Peds fusion or arthro desis 11/29/2017 Screening procedure Speech Therapy Referral Routine Pseudarthrosis after Order ed: fusion or arthro desis 11/29/2017 Screening procedure documented as of this encounter Results FL Video Swallow Study (12/26/2017 1:03 PM OPERATING ROOM REGISTERED NURSE) Anatomical Region Laterality Modality Neck, Chest Radio Fluoroscopy Specimen (Source) Anatomical Collection Method Collection Time Re ceived Time Location / / Volume Laterality 12/26/2017 1:03 PM OPERATING ROOM REGISTERED NURSE Narrative 12/26/2017 6:00 PM OPERATING ROOM REGISTERED NURSE [place] VIDEO SWALLOW STUDY 12/26/2017 1:03 PM INDICATION: [...] note might be different from the original. [place] VIDEO SWALLOW STUDY 12/26/2017 1:03 PM INDICATION: [...] W Flex And Ext (11/29/2017 9:54 AM OPERATING ROOM REGISTERED NURSE) Anatomical Region Laterality Modality Spine, C-Spine, Neck Computed Radiograph y Specimen (Source) Anatomical Collection Method Collection Time Re ceived Time Location / / Volume Laterality 11/29/2017 9:54 AM OPERATING ROOM REGISTERED NURSE Narrative 11/29/2017 10:59 AM OPERATING ROOM REGISTERED NURSE XR CERVICAL SPINE W FLEX AND EXT [...] status documented in this encounter Care Teams Edge Sawyer Relationship Specialty Start Date End Date Unassigned, Provider PCP - General 08/05/03 12/13/[address] [place] [address] documented as of this encounter
--- OUTSIDE RECORDS SUMMARY | 2022-07-06 15:56 | XMS_ITS | Encounter Summary ---
:1965 Author Organization [facility] Address [address] [place] [address] Care Team Providers Name Role Phone Jose Holden MD Primary Care Provider [phone] Reason for Visit Reason Comments Other Encounter Details Date Type Department Care Team Description 01/17/2018 Telephone [facility] Neuroscience Chava Simon RN Other Center Neurosurgery/ Ortho Spine [address] [place] [address]. [place] [address] Social History Tobacco Use Types [...] AM CST XR printed for patient to sisal picker when she comes to clinic. Chava Simon RN 01/18/2018, 8:42 AM K DRIER TENDER Michael Cruz - 01/17/2018 3:46 PM CST Patient called in stating she will drop off her CD in clinic tomorrow. However she wants to make sure RADHA Bowie also has a copy of her neck pictures ready for her as well. Patient states she had alreadyspoken to RADHA Bowie about this. Please advise Michael Cruz 01/17/2018, 3:47 PM K DRIER TENDER documented in this encounter Plan of Treatment Not on filedocumented as of this encounter Visit Diagnoses Not on filedocumented in this encounter Care Teams Computer Technology Teacher Relationship Specialty Start Date End Date Jose Holden MD PCP - General Otolaryngology 12/14/17 [facility] [place] [address] documented as of this encounter
--- OUTSIDE RECORDS SUMMARY | 2022-07-06 15:56 | XMS_ITS | Encounter Summary ---
:1965 Author Organization [facility] Address [address], [place] [address] Care Team Providers Name Role Phone oJse Holden MD Primary Care Provider [phone] Encounter Details Date Type Department Care Team Description 12/02/2017 Orders Only External to Pete Gonzalez MD [address] [place], [place] [address] (Wo rk) Social History Tobacco Use Types [...] 12/02/2017 12:00 AM Resul ts for this TECHNICIANS AND TRADES WORKERS procedure are i n the results section. documented in this encounter Results MRI SPINE--SCAN (12/02/2017 12:00 AM TECHNICIANS AND TRADES WORKERS) Anatomical Region Laterality Modality Other Specimen (Source) Anatomical Location Collection Method / Collectio n Time Received Time / Laterality Volume 12/02/2017 Narrative This result has an attachment that is no t available. Pete Gonzalez MD DUMMY/OTHER/AR documented in this encounter Visit Diagnoses Not on filedocumented in this encounter Care Teams Engineering Supplies Sales Relationship Specialty Start Date End Date Jose Holden MD PCP - General Otolaryngology 12/14/17 [address] [place], [place] [id number] documented as of this encounter
--- OUTSIDE RECORDS SUMMARY | 2022-07-06 15:56 | XMS_ITS | Encounter Summary ---
:1965 Author Organization [facility] Address [address] [place] [address] Care Team Providers Name Role Phone Unassigned, Provider Primary Care Provider Unavailable Encounter Details Date Type Department Care Team Description 10/28/2005 [facility] Curtis Antoine Op Report-Archive [address] StreetBritton García [place] [address] [facility] [phone] [place] [address] Social History Tobacco Use Types Packs/Day Years Used Date Smoking Tobacco: Never Assessed Sex Assigned at Date Recorded Not on file documented as of this encounter Plan of Treatment Not on filedocumented as of this encounter Visit Diagnoses Not on filedocumented in this encounter Care Teams Case Management Associate Relationship Specialty Start Date End Date Unassigned, Provider PCP - General 08/05/03 12/13/17 [address] [place] [address] documented as of this encounter
--- OUTSIDE RECORDS SUMMARY | 2022-07-06 15:56 | XMS_ITS | Encounter Summary ---
:1965 Author Organization [facility] Address [address] [place] [address] Care Team Providers Name Role Phone Unassigned, Provider Primary Care Provider Unavailable Encounter Details Date Type Department Care Team Description 01/17/2006 [facility] Curtis Antoine Op Report-Archive [address] StreetBritton García [place] [address] [facility] [phone] [place] [address] Social History Tobacco Use Types Packs/Day Years Used Date Smoking Tobacco: Never Assessed Sex Assigned at Date Recorded Not on file documented as of this encounter Plan of Treatment Not on filedocumented as of this encounter Visit Diagnoses Not on filedocumented in this encounter Care Teams Roofer Gypsum Relationship Specialty Start Date End Date Unassigned, Provider PCP - General 08/05/03 12/13/17 [address] [place] [address] documented as of this encounter
--- OUTSIDE RECORDS SUMMARY | 2022-07-06 15:56 | XMS_ITS | Encounter Summary ---
:1965 Author Organization [facility] Address [address] [place] [address] Care Team Providers Name Role Phone Jose Holden MD Primary Care Provider [phone] Reason for Visit Procedure/Equipment (Routine) - Incomplete Specialty Diagnoses / Procedures Referred By Contact Refer red To Contact Diagnoses Screening procedure Pseudarthrosis after fusion or arthrodesis Pete Gonzalez MD Procedures FL Video Swallow Study [address] [place] [address] Referral ID Status Reason Start Date Expiration Date Visits V isits Requested Authorized [id number] Incomplete 11/29/2017 02/28/2019 1 1 Encounter Details Date Type Department Care Team Description 12/26/2017 Imaging [facility] MD Screening procedure; Neuro[facility] Center [address] [place], [place] [address]E Ps eudarthrosis after fusion or arthrodesis Radiology Fluoro S [address] [place] [address] [place] [address] [phone] (Wo rk) Social History Tobacco Use Types [...] Screening pr ocedure Results for this STUDY AMMONIUM NITRATE NEUTRALIZER Pseudarthrosis after procedu re are in fusion or the results arthrodesis section. documented in this encounter Results FL Video Swallow Study (12/26/2017 1:03 PM AMMONIUM NITRATE NEUTRALIZER) Anatomical Region Laterality Modality Neck, Chest Radio Fluoroscopy Specimen (Source) Anatomical Collection Method Collection Time Re ceived Time Location / / Volume Laterality 12/26/2017 1:03 PM AMMONIUM NITRATE NEUTRALIZER Narrative 12/26/2017 6:00 PM AMMONIUM NITRATE NEUTRALIZER FL VIDEO SWALLOW STUDY 12/26/2017 1:03 PM [...] for additional details. Pete Gonzalez MD RAD [place] documented in this encounter Visit Diagnoses Diagnosis Screening procedure Screening for unspecified condition Pseudarthrosis after fusion or arthrodes is Arthrodesis status documented in this encounter Administered Medications Inactive Administered Medications - up to 3 most recent administrations Medication Order MAR Action Action Date Dose Rate Site barium sulfate (EZ PAQUE) Given 12/26/2017 1:06 PM AMMONIUM NITRATE NEUTRALIZER 200 mL suspension 200 mL 200 mL, Oral, ONCE (NON-SCHEDULED), Starting on Tue12/26/17 at 1305, For 1 dose barium sulfate (EZ-DISK) tablet 700 mg Given 12/26/2017 1:06 PM AMMONIUM NITRATE NEUTRALIZER 700 mg 700 mg, Oral, ONCE (NON-SCHEDULED), Starting on Tue12/26/17 at 1305, Until Tue12/26/17 at 1306, For 1 dose barium sulfate (EZ-PASTE) oral cream 9 g Given 12/26/2017 1:06 PM AMMONIUM NITRATE NEUTRALIZER 9 g 9 g (15 mL), Oral, ONCE (NON-SCHEDULED), Starting on Tue12/26/17 at 1305, For 1 dose barium sulfate (VARIBAR, TAGITOL V) 40 % Given 12/26/2017 1:06 P M AMMONIUM NITRATE NEUTRALIZER 240 mL suspension 240 mL 240 mL, Oral, ONCE (NON-SCHEDULED), Starting on Tue12/26/17 at 1305, Until Tue02/20/18 at 1710, For 3 doses documented in this encounter Care Teams Helper Steel Fabrication Relationship Specialty Start Date End Date Jose Holden MD PCP - General Otolaryngology 12/14/17 [facility] [place] [address] documented as of this encounter
--- OUTSIDE RECORDS SUMMARY | 2022-07-06 15:56 | XMS_ITS | Encounter Summary ---
:1965 Author Organization [facility] Address [address], [place] [address] Care Team Providers Name Role Phone Jose Holden MD Primary Care Provider [phone] Encounter Details Date Type Department Care Team Description 12/02/2017 Orders Only External to Pete Gonzalez MD [address] [place], [place] [address] (Wo rk) Social History Tobacco Use Types [...] 12/02/2017 12:00 AM Resul ts for this SWITCHBOARD MECHANIC procedure are i n the results section. documented in this encounter Results MRI SPINE--SCAN (12/02/2017 12:00 AM SWITCHBOARD MECHANIC) Anatomical Region Laterality Modality Other Specimen (Source) Anatomical Location Collection Method / Collectio n Time Received Time / Laterality Volume 12/02/2017 Narrative This result has an attachment that is no t available. Pete Gonzalez MD DUMMY/OTHER/AR documented in this encounter Visit Diagnoses Not on filedocumented in this encounter Care Teams Marine Fitter Relationship Specialty Start Date End Date Jose Holden MD PCP - General Otolaryngology 12/14/17 [address] [place], [place] [id number] documented as of this encounter
--- OUTSIDE RECORDS SUMMARY | 2022-07-06 15:56 | XMS_ITS | Encounter Summary ---
:1965 Author Organization [facility] Address [address] [place] [address] Care Team Providers Name Role Phone Jose Holden MD Primary Care Provider [phone] Reason for Referral Consult/Transfer Care (Routine) - Closed Specialty Diagnoses / Procedures Referred By Contact Refer red To Contact Neurosurgery Diagnoses Pseudarthrosis after fusion or arthrodesis Pete Gonzalez MD [facility] Neuro[facility]tho [address] [place] [address] [place] [address] Phone: Fax: Referral ID Status Reason Start Date Expiration Date Visits Requ ested Visits Authorized [id number] Closed 01/17/2018 04/18/2019 1 1 Scheduling Instructions Your provider has recommended an appoint ment for a pre-operative pain consult with [facility]?? You may call [phone] to schedule your appointment.?? If you prefer, a mirela billy will contact you within the next 3 business days to assist you in setting u p this appointment. ER OPERATOR Reason for Visit Reason Comments Revisit Encounter Details Date Type Department Care Team Description 01/17/2018 Office Visit [facility], Pseudarthr osis after [facility] MD fusion or arthrodesis Neurosurgery/Ortho [address] [place] (Primar y Dx) [address]ine [address] [place] [address] [place] [address] [phone] Social History Tobacco Use Types Packs/Day Years [...] Comments Blood Pressure 137/83 01/17/2018 11:51 AM PEELER OPERATOR Pulse 83 01/17/2018 11:51 AM PEELER OPERATOR Temperature 36.5 ??C (97.7 ??F) 01/17/2018 11:51 AM PEELER OPERATOR Respiratory Rate 16 01/17/2018 11:51 AM PEELER OPERATOR Oxygen Saturation - - Inhaled Oxygen Concentration [...] business days) Please call Ana Rosa at [phone] if you have not heard from her. [...] prior to surgery. Please fax preops to [phone] Nothing to eat or drink from midnight [...] and Apply plenty of Hibiclens*, a special bus cleaner, to a clean, wet washcloth. Wash [...] 8am-5pm, please call the Neurosurgery Clinic at [phone] if youhave any concerns related to your surgery before going to the Emergency Room, your family physician,or an Urgent Care. After hours call the [facility] at [phone]. PAIN MEDICATION POLICY The Department of Neurosurgery [...] duringweekend hours. Day of surgery, arrive at [facility] on 3rd floor 2 hours prior to surgery. The Same Day Surgery Nurses will call you 1-3 days prior to surgery to inform you what time you should arrive for your surgery. If they do not reach you, please call if your surgery is at [facility]. Review your surgery packet. Contact the Neurosurgery Center [phone] if you have any questions or concerns ER OPERATOR documented in this encounter Progress Notes Pete [...] is prone to typos and grammatical errors. ER OPERATOR documented in this encounter Plan of Treatment Scheduled Referrals Name Type Priority Associated Diagnoses Order S chedule PRE-OP PAIN CONSULT Referral Routine Pseudarthrosis after fusion Ordered: 01/17/2018 - ADULT or arthrodesis documented as of this encounter Procedures Procedure Name Priority Date/Time Associated Diagnosis Comme nts MRSA/MSSA PRE-OP Routine 01/17/2018 1:48 PM Pseudarthrosis aft er Results for this CULTURE PEELER OPERATOR fusion or arthrodesis proced ure are in the results section. documented in this encounter Results MRSA/MSSA Pre-Op Culture (01/17/2018 1:48 PM PEELER OPERATOR) Component Value Ref Test Analysis Performed At [facility] Range Method Time Signature Specimen Nose Swab [facility] Description LABORATORIES Special Unspecified [facility] Requests LABORATORIES Culture No Staphylococcus [facility] aureus Isolated LABORATORIES Report Status 01/18/2018 [facility] Final LABORATORIES Specimen Anatomical Collection Method Collection Time Receive d Time (Source) Location / / Volume Laterality Nasal swab taken NASAL STRUCTURE / 01/17/2018 1:48 PM 01/17/2018 1:49 (situation) Unknown PEELER OPERATOR PM PEELER OPERATOR Pete Gonzalez MD LAB_1 Performing Organization Address City/State/ZIP Code Phon e Number [facility] LABORATORIES [phone] documented in this encounter Visit Diagnoses Diagnosis Pseudarthrosis after fusion or arthrodes is - Primary Arthrodesis status documented in this encounter Care Teams Aircraft Inspection Record Clerk Relationship Specialty Start Date End Date Jose Holden MD PCP - General Otolaryngology 12/14/17 [address] [place] [address] documented as of this encounter
== END 2022-06-14 17:50 | disposition home or self-care (01) ==
PROVIDERS: Emergency Provider Family Medicine; PCP Family Medicine
DX: H54.7 Unspecified visual loss (principal); R41.82 Altered mental status, unspecified
CPT/HCPCS: 36415; 70450; 72125; 73030; 80053; 81003; 85025; 87502; 87635; 96365; 96375; 99285; J2060; J2270; J3490; J7030

== ENCOUNTER 2022-08-01 06:00 | Outpatient (CLI) | payer MEDICARE, OTHER, SELFPAY ==
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
--- OUTSIDE RECORDS SUMMARY | 2022-08-17 06:46 | XMS_ITS | Continuity of Care Document ---
:1965 Author Organization [facility] Address [address] [place] [address] Care Team Providers Name Role Phone [facility] Unavailable Unavailable Procedures Procedure Date [...] Visit Copied on Encounter [facility] No [facility] Provider: Surgery Surgery Surgery [facility]. David, [address], [place], [place], [place] [id number], [place], [place], , [place] [id number], [id number]. [place]. tel: [phone] Twin [facility] No Twin Referring [address] Provider: Surgery Surgery Surgery [facility]. David, [address], [place], [place], [place] [id number], [place], [place], , [place] [id number], [address]. [place]. tel: [phone] [facility] No Twin [address] Provider: Surgery Surgery Surgery [facility]. Jose [address] [facility] [address], [facility], [place], [place] , [place], [id number], [place], [address]. [place] [id number], tel: [phone] tel:[phone] Family History Family Member Type Diagnosis Age At Onset No Information Payers Payer name Insurance type Covered republican ID Authorization(s ) Medicare [id number] [employer]ica [facility] [id number] Social History Type Description Quantity Date Captured [...]
--- OUTSIDE RECORDS SUMMARY | 2022-08-17 06:46 | XMS_ITS | Continuity of Care Document ---
:1965 Author Organization [facility] Address [address] [place] [address] Care Team Providers Name Role Phone Mor Singleton CRNA Unavailable Unavailable Procedures Procedure Date ANESTH, HEAD/NECK/PTRUNK ANESTH PERC IMG TX SP PROC ANESTH PERC IMG TX SP PROC Advance Directives Directive Yes / No Effective Date File Name No Information Encounters Encounter Practice Location Reason(s) Diagnoses Date Provider Provide rs Description For Visit Copied on Encounter [facility] No Areli Referring [facility] Mor. Provider: Lois CISNEROS Surgery [address] [place] [address], [place] [facility] [address] [place] [id number], [facility], [place], [place], [place], [place], [id number], [id number] [place]. . tel:[phone] tel:[phone] [facility] No [facility] Referring Anesthesia [facility] -2019 Nilay. Provider: Lois CISNEROS Surgery [address] [facility], [facility] [place], [address] [id number], [id number], [facility] tel:[phone] [place], [place], [phone] . tel:[phone] [facility] No [facility] Referring Anesthesia [facility] -2019 Nilay. Provider: PA, [address] [facility] [address], [place], Endy J, [place], [place], [place], [address] [facility] [id number], [id number], John, [facility]. Denisa tel:[phone] s, [place], [id number] . tel:[phone] Family History Family Member Type Diagnosis Age At Onset No Information Payers Payer name Insurance type Covered alliance party ID Authorization(s ) Medicare MB [id number] Medica [facility] [id number] Social History Type Description Quantity Date Captured [...]
--- OUTSIDE RECORDS SUMMARY | 2022-08-17 06:47 | XMS_ITS | Encounter Summary ---
:1965 Author Organization [facility] Address [address] [place] [address] Care Team Providers Name Role Phone [facility] Primary Care Provide r Encounter [...] filedocumented in this encounter Care Teams Senior Analyst Programmer Relationship Specialty Start Date End Date [facility] PCP - General 06/03/171999 [place] [address] documented as of this encounter
--- OUTSIDE RECORDS SUMMARY | 2022-08-17 06:47 | XMS_ITS | Encounter Summary ---
:1965 Author Organization [place] Address [facility] [place] [address] Care Team Providers Name Role Phone Clinic, [facility] Primary Care Provide r Mor Bautista MD Unavailable Reason for Visit Reason Onset Date Comments Appointment 05/12/2021 Encounter Details Date Type Department Care Team Description 05/12/2021 [facility] Infectious Disease None Appointment Clinic [place] [phone] Social History Tobacco Use Types Packs/Day Years Used Date Current Every Day Smoker 0.5 Smokeless Tobacco: Never Used Alcohol Use Standard Drinks/Week Comments No 0 (1 standard drink = 0.6 oz pure alcoho l) Sex Assigned at Date Recorded Not on file documented as of this encounter Miscellaneous Notes Telephone Encounter - Tiffanie Georges - 05/12/2021 12:17 PM CDT [facility] Phone Message May a detailed message be left on voicemail: yes Reason for Call: Other: Pt requesting call back, pt stated she is returning a call to the clinic. Manager Contracting did not see any notes in the pt's chart to refer to. Pt stated she is being referred from [facility] for a staph infection in her [...] on filedocumented in this encounter Care Teams Wood Router Hand Relationship Specialty Start Date End Date [facility] PCP - General 06/03/[address] [address] Mor Bautista MD Assigned Infectious Disease 06/12/2106/25 [address] [place] [address] documented as of this encounter
--- OUTSIDE RECORDS SUMMARY | 2022-08-17 06:47 | XMS_ITS | Continuity of Care Document ---
:1965 Author Organization [facility] Address [address] [address] [place] [address] Phone Care Team Providers Name Role Phone Nilay Perry MD Unavailable Unavailable Advance Directives Directive Yes / No Effective Date File Name No Information Encounters Encounter Practice Location Reason(s) Diagnoses Date Provider Provide rs Description For Visit Copied on Encounter [facility] No Orlando FAULKNER Referring Digestive [facility] Nilay. Provider: [facility] [place], Endoscopy [address] [facility] [address], Ferdis DILLON MD, [address] [facility] [address], [place], [place], [facility] [address], [id number], [place], [place], [facility] [id number], [place], [address]. tel:[phone] . tel:[phone] tel:[phone] Family History Family Member Type Diagnosis Age At Onset No Information Payers Payer name Insurance type Covered libertarian ID Authorization(s ) [place] Medical Assistance [id number] Social History Type Description Quantity Date Captured [...]
--- OUTSIDE RECORDS SUMMARY | 2022-08-17 06:47 | XMS_ITS | Continuity of Care Document ---
:1965 Author Organization [facility] Address [address] [place] [address] Phone Care Team Providers Name Role Phone ZProvider, Conversion Unavailable Unavailable Procedures Procedure Date BMI >=30 calcuate w/followup Dxa Bone Density, Vert Fx DXA BONE DENSITY/PERIPHERAL Dxa Bone Density, Axial BMI >=30 calcuate w/followup TOBACCO USE TXMNT COUNSELING ROUTINE VENIPUNCTURE Advance Directives Directive Yes / No Effective Date File Name No Information Encounters Encounter Practice Location Reason(s) Diagnoses Date Provider Provide rs Description For Visit Copied on Encounter [facility] No Information Nov- ZProvider Arthritis [place] [address] Conversion [place] 4 . . Rheumatolo gy, [address] [facility], [place], [place], [id number], [place] tel:[phone] [facility] TOBACCO USE Apr-1 Michele Arthritis DISORDEROBESITY [address] [place]. And NOSOSTEOPOROSIS NOS [address], gy, [address], [address], [place], [id number], [place], [place]. [id number], tel:[phone] tel:[phone] [facility] Age-related Apr-0 ZProvider Arthritis [place] osteoporosis w/o 7[address] Conversion [place] current 4 . . Rheumatolo pathological gy, [address] [place] [address], [id number], [place] tel:[phone] [facility] OBESITY NOSTOBACCO Mar-2 ZProvider Arthritis USE 8201 Conversion And DISORDEROSTEOPOROSI 4 . . Rheumatolo S NOSMALAISE AND gy, [address], [place], [place], [id number], [place] tel:[phone] [place] NEPTALI [place] Tobacco useObesity, Mar-2 Michele Arthritis unspecifiedAge-rela Nara. And mary osteoporosis 4 [address]o [address], gy, [address], [address] [place], [address], [place], [place], [id number], [place], [place]. [id number], tel:[phone] tel:[phone] Family History Family Member Type Diagnosis Age At Onset Problem (finding) Mother Problem (finding) The patient reports no changes except otherwise noted during the prese nt visit Problem (finding) Father living Problem (finding) Osteoporosis Problem (finding) Number of Sisters Problem (finding) Number of Brothers Payers Payer name Insurance type Covered alliance [...]
--- OUTSIDE RECORDS SUMMARY | 2022-08-17 06:47 | XMS_ITS | Encounter Summary ---
:1965 Author Organization [place] Address [facility] [place] [address] Care Team Providers Name Role Phone [facility] Primary Care Provide r Mor [...] on filedocumented in this encounter Care Teams Radio Division Officer Relationship Specialty Start Date End Date [facility], [facility] PCP - General 06/03/17 [facility] [address] [place] [address] Mor Bautista MD Assigned Infectious Disease 06/12/2106/25 [facility] Mohan Porter Provider [address] [place] [address] documented as of this encounter
--- OUTSIDE RECORDS SUMMARY | 2022-08-17 06:47 | XMS_ITS | Encounter Summary ---
:1965 Author Organization [place] Address [address] [facility] 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 Sh Periop Services Procedures CYSTOSCOPY, SLING TRANSVAGINAL [address], [address] [place] [address] Phone: Referral ID Status Reason Start Date Expiration Date Visits Requ ested Visits Authorized [id number] 1 1 Encounter Details Date Type Department Care Team Description 10/14/2017 Surgery [facility] Tes[place]aye, CYSTOSCOPY ,TVT SLING [place] [facility] Ser ashwin Rodrigez MD [address] [facility] A UROLOGY [facility] [place] [address] [place] [address] [facility] [phone] [place] [address] (Wo rk) Surgery Details Date/Time Status Location OR Service Patient Case Class Case Tr auma Class Type Case? 10/14/17 1:00 Posted OR OR [facility] Urology Same Day PM Surgery Panel [...] Comments Blood Pressure 93/59 10/14/2017 2:15 PM ENROLLMENT COUNSELOR Pulse - - Temperature 35.7 ??C (96.3 ??F) 10/14/2017 1:31 PM ENROLLMENT COUNSELOR Respiratory Rate 14 10/14/2017 2:15 PM ENROLLMENT COUNSELOR Oxygen Saturation 93% 10/14/2017 2:15 PM ENROLLMENT COUNSELOR Inhaled Oxygen Concentration - - Weight 73.9 kg (163 lb) 10/14/2017 12:15 PM ENROLLMENT COUNSELOR Height 152.4 cm (5') 10/14/2017 12:15 PM ENROLLMENT COUNSELOR Body Mass Index 31.83 10/14/2017 12:15 PM ENROLLMENT COUNSELOR documented in this encounter Discharge Instructions Discharge InstructionsGi King, RADHA - 10/14/2017 1:42 PM ENROLLMENT COUNSELOR Post Bladder Sling Instructions Dr Stafford [phone] ?? For pain you may take a narcotic/acetaminophen combination prescription for pain relief. The mostcommon pain is in the upper thighs. This usually lasts 2-3 days. You may use cold packs to this areaas needed to reduce pain and bruising. Generally fomr-ihy-idstirf medicines such as ibuprofen, 3-4 tablets every [...] vaginal sutures. ?? Post op appointments: Call [phone] to schedule an appointment to see your [...] know so they can address your concerns. LLMENT COUNSELOR documented in this encounter Medications at Time [...] needed for muscle spasms naloxone (NARCAN) nasal [place] 4 mg into one 0 spray nostril [...] (Takes 2 x 5000 unit tablet = 77178 unit dose) ZONISAMIDE PO Take 300 mg [...] and was given a new prescription for [place]. Prescription for Oxycodone shredded. Patient took hard copy of new [place] prescription with her.; LLMENT COUNSELOR Vicki Matthews RN - 10/14/2017 3:39 PM CST Patient voided, bladder scan 450cc, encouraged patient to void again. Pt voided. Bladder scan for 100-150cc. Patient comfortable and ready to go home. LLMENT COUNSELOR documented in this encounter Miscellaneous Notes Op [...] she also underwent sling placement in [facility] and on exam I was [...] and draped in the regular fashion. A 16-[place] catheter was placed. Periurethral space was [...] EM#[id number] Name: ANGIE MOSQUERA MRN: [id number] Account: [id number] : 1965 Procedure Date: 10/14/2017 Document: [id number] cc: Rain Stafford MD LLMENT COUNSELOR documented in this encounter Plan of Treatment Not on filedocumented as of this encounter Procedures Procedure Name Priority Date/Time Associated Diagnosis Comme nts CREATION, VAGINAL 10/14/2017 12:46 PM URGE AND STRESS SLING, WITH CYSTOSCOPY ENROLLMENT COUNSELOR INCONTINENCE,FEMAL E STRESS INCONTINENCE LAB RESULT - HIM SCAN 10/11/2017 12:00 AM ENROLLMENT COUNSELOR EKG CARDIAC - HIM SCAN 08/15/2017 12:00 AM CDT XRAY IMAGING - HIM 07/25/2017 12:00 AM SCAN CDT documented in this encounter Results LAB RESULT - HIM SCAN (10/11/2017 12:00 AM ENROLLMENT COUNSELOR) Specimen (Source) Anatomical Location Collection Method / [...] 1:21 PM 30 mLs Operative EPINEPHrine 1:200,000 ENROLLMENT COUNSELOR Sit e/Surgical Site injection PRN, Starting on Tue10/14/17 at 1321, Intra-procedure ciprofloxacin (CIPRO) infusion 400 mg Given 10/14/2017 12:59 PM ENROLLMENT COUNSELOR 400 mg Routine, 400 mg, Intravenous, PRE-OP/PRE-PROCEDURE, Starting on Tue10/14/17 at 1155, For 1 dose, Irritant., Indications: Perioperative Pharmacoprophylaxis, Pre-procedure New Bag 10/14/2017 12:26 PM ENROLLMENT COUNSELOR 400 mg fentaNYL (PF) (SUBLIMAZE) injection 25-5 0 mcg Given 10/14/2017 2:01 PM ENROLLMENT COUNSELOR 50 mcg 25-50 mcg, Intravenous, EVERY 2 [...] 100 mcg., PACU Given 10/14/2017 1:50 PM ENROLLMENT COUNSELOR 50 mcg HYDROmorphone (PF) (DILAUDID) injection Given 10/14/2017 2:42 PM ENROLLMENT COUNSELOR 0.5 mg 0.3-0.5 mg 0.3-0.5 mg, Intravenous, [...] minutes., PACU/Phase II Given 10/14/2017 2:18 PM ENROLLMENT COUNSELOR 0.5 mg ondansetron (ZOFRAN) injection 4 mg Given 10/14/2017 2:18 PM ENROLLMENT COUNSELOR 4 mg 4 mg, Intravenous, EVERY 30 [...] tablet 5 mg Given 10/14/2017 2:54 PM ENROLLMENT COUNSELOR 5 mg 5 mg, Oral, ONCE, On Tue10/14/17 at 1500, For 1 dose, PACU scopolamine (TRANSDERM) 72 hr Given 10/14/2017 12:43 PM ENROLLMENT COUNSELOR 1 pa tch Behind Left Ear patch 1 patch 1 patch, Transdermal, EVERY 72 HOURS, First dose on Tue10/14/17 at 1245, Apply patch to skin, behind ear. Remove every 72 hours. Each 1.5 mg patch delivers 1 mg of scopolamine., Pre-procedure skin closure adhesive Given 10/14/2017 1:19 PM 1 applicator Operative (DERMABOND) vial ENROLLMENT COUNSELOR Site/Surgical S ite PRN, Starting on Tue10/14/17 at 1319, Intra-procedure sodium chloride 0.9% Given 10/14/2017 1:09 PM 1,000 mLs Operative (bottle) irrigation ENROLLMENT COUNSELOR Site/Surgical S ite PRN, Starting on Tue10/14/17 at 1309, Intra-procedure sterile water irrigation Given 10/14/2017 1:08 PM 3,000 mLs Operative (bag) ENROLLMENT COUNSELOR Site/Surgical S ite PRN, Intra-procedure, Starting on Tue10/14/17 at 1308, Until Tue10/14/17 at 1544 documented in this encounter Active and Recently Administered Medications Times are shown in ENROLLMENT COUNSELOR. Scheduled Medication Order 10/12/2017 10/13/2017 10/14/2017 ciprofloxacin (CIPRO) infusion 400 mg (COMPLETED) 1226 (New Bag - Provider: Rona Hanks RN)1259 (Given - Provider: Gayatri Combs APRN BARREL CHARRER HELPER) Routine, 400 mg, Intravenous, PRE-OP/PRE -PROCEDURE, Starting [...] RADHA) 0.3-0.5 mg, Intravenous, EVERY 10 MIN NH N, other, acute pain.?May administer if Respiratory [...] 1544 documented in this encounter Care Teams Chief Development Officer Relationship Specialty Start Date End Date Clinic, [facility] PCP - General 06/03/171999 [place] [address] documented as of this encounter
--- OUTSIDE RECORDS SUMMARY | 2022-08-17 06:47 | XMS_ITS | Encounter Summary ---
:1965 Author Organization [place] Address [address] [place] [id number] Care Team Providers Name Role Phone [facility] Primary Care Provide r Encounter Details Date Type Department Care Team Description [facility] ProviderAlea Social History Tobacco [...] on filedocumented in this encounter Care Teams Oral Surgery Assistant Relationship Specialty Start Date End Date [facility] PCP - General 06/03/171999 [place] [address] documented as of this encounter
--- OUTSIDE RECORDS SUMMARY | 2022-08-17 06:47 | XMS_ITS | Encounter Summary ---
:1965 Author Organization [facility] Address [facility] [place] [address] Care Team Providers Name Role Phone [facility] Prov[facility] r Reason for Visit Reason Comments Referral Other ID Encounter Details Date Type Department Care Team Description 05/11/2021 Communication - [facility], Jameel howard; [facility] Special[facility] Patient Access [address] [place] [phone] Social History Tobacco Use Types Packs/Day [...] AM CDT Date: 05/14/2021 Status: [facility] Time: 3:20 PM Length: 40 Visit Type: CONSULT [[id number]] Copay: $0.00 Provider: Mor Bautista MD Telephone [...] ONLY received??? 05/11/2021 12:05pm inside ID consult [facility], , Referring: Dr David Cohn, DX: status post shoulder replacement, left Order comments: Asking for HALI, this week. documented in this encounter Plan of Treatment Not on filedocumented as of this encounter Visit Diagnoses Not on filedocumented in this encounter Care Teams Clinical Practice Consultant Relationship Specialty Start Date End Date Clinic, [facility] PCP - General 06/03/171999 [place] [address] documented as of this encounter
--- OUTSIDE RECORDS SUMMARY | 2022-08-17 06:47 | XMS_ITS | Encounter Summary ---
:1965 Author Organization [place] Address [address] [place] [address] Care Team Providers Name Role Phone [facility], [facility] Primary Care Provide r Encounter Details Date Type Department Care Team Description [facility] ProviderAlea Social History Tobacco Use [...] on filedocumented in this encounter Care Teams Interactive Multimedia Designer Relationship Specialty Start Date End Date [facility] PCP - General 06/03/171999 [place] [address] documented as of this encounter
--- OUTSIDE RECORDS SUMMARY | 2022-08-17 06:47 | XMS_ITS | Continuity of Care Document ---
:1965 Author Organization [facility] Address [address] [place] [address] Phone Care Team Providers Name Role Phone [...] elctr each OFFICE/OUTPATIENT VISIT, EST SCS PreTrial [place] [employer] OFFICE/OUTPATIENT VISIT, EST OFFICE/OUTPATIENT VISIT, EST [...] For Visit Copied on Encounter OFFICE VISIT, [facility] Anxiety disorder, Ka ngas [facility] (chief unspecifiedChronic 0-202 [place]. TELEMEDICINE Pain Caterina complaint) migraine without 2 [address] Clinic, aura, intractable, John, [address] without status [place], migrainosusOsteoar is, [place], Caterina, thritisPain in [id number] [place], left shoulderPain , [place]. [id number] in left hipPain in tel:+ , [place] right hipPain in [id number] tel:+ left kneePain in [id number] right kneeOther spondylosis, cervical regionOther spondylosis, lumbar regionRadiculopath y, lumbar regionPain in thoracic spineFibromyalgiaP ostlaminectomy syndrome, not elsewhere classifiedLong term (current) use of opiate analgesic OFFICE VISIT, [facility] OsteoarthritisChro K [facility] (chief saul migraine [place]. Provide r: TELEMEDICINE Pain [place] complaint) without aura, [facility], intractable, John, Will J, [address] without status [place] [address] John, migrainosusAnxiety is, [place], John, Caterina, disorder, [id number] [place], unspecifiedPain in , [place]. s, [place] , 259957542 left shoulderPain tel: [phone] , [place] in left hipPain in 04556924 . tel: right hipPain in tel:2 [phone] left kneePain in 312299 5 right kneeOther spondylosis, cervical regionOther spondylosis, lumbar regionRadiculopath y, lumbar regionPain in thoracic spinePostlaminecto my syndrome, not elsewhere classifiedFibromya lgiaLong term (current) use of opiate analgesic OFFICE VISIT, [facility] Pain in left [facility] (chief shoulderAnxiety [place]. TELEMEDICINE Pain Caterina complaint) disorder, 2 [address] Clinic, unspecifiedChronic John, [address] migraine without [place] John, aura, intractable, is, [place], Caterina, without status [id number] [place], migrainosusOsteoar , [place]. [id number] thritisPain in tel: , US right hipPain in [id number] tel: left hipPain in 20462420 left kneePain in right kneeOther spondylosis, cervical regionOther spondylosis, lumbar regionRadiculopath y, lumbar regionPain in thoracic spinePostlaminecto my syndrome, not elsewhere classifiedFibromya lgiaLong term (current) use of opiate analgesic OFFICE VISIT, [facility] Pain in left [facility] (chief hipAnxiety [place]. TELEMEDICINE Pain [place] complaint) disorder, 2 [address] [facility], unspecifiedChronic John, [address] migraine without [place] John, aura, intractable, is, [place], Caterina, without status [id number] [place], migrainosusOsteoar , US. [id number] thritisPain in tel: , US left shoulderPain [id number] tel: in right hipPain 43065021 in left kneePain in right kneeOther spondylosis, cervical regionOther spondylosis, lumbar regionRadiculopath y, lumbar regionPain in thoracic spineFibromyalgiaP ostlaminectomy syndrome, not elsewhere classifiedLong term (current) use of opiate analgesic [facility] No Information [facility] [place]. Pain [place] 2 [address] [facility], John, [address] [place], is, [place], Caterina, [id number] [place], , [place]. [id number] tel: , [place] [id number] tel: [phone] OFFICE/OUTPAT [facility] Anxiety disorder, Ka [facility] Referring IENT VISIT, [facility] (chief unspecifiedChronic [place] . Provider: EST Pain [place] complaint) migraine without 2 [address] An [facility]ura Clinic, aura, intractable, John, Will J, [address] without status [place] [address] John, migrainosusOsteoar is, [place], John, Caterina, thritisPain in [id number] [place], left shoulderPain , [place]. s, [place], 143642596 in left hipPain in tel: [phone] , US right hipPain in 53534881 . tel: left kneePain in tel:2 [phone] right kneeOther [id number] spondylosis, cervical regionOther spondylosis, lumbar regionRadiculopath y, lumbar regionPain in thoracic spineFibromyalgiaP ostlaminectomy syndrome, not elsewhere classifiedLong term (current) use of opiate analgesic OFFICE VISIT, [facility] Chronic migraine Jan- Jens gas [facility] (chief without aura, [place]. TELEMEDICINE Pain [place] complaint) intractable, 2 [address] [facility], without status John, [address] migrainosusAnxiety [place] John, disorder, is, [place], [place], unspecifiedOsteoar [id number] [place], thritisPain in , US. 071560075 left shoulderPain tel: , [place] in right hipPain [id number] tel: in left hipPain in 06162900 right kneePain in left kneeOther spondylosis, cervical regionOther spondylosis, lumbar regionRadiculopath y, lumbar regionPain in thoracic spineFibromyalgiaP ostlaminectomy syndrome, not elsewhere classifiedLong term (current) use of opiate analgesic [facility] No Information [facility] [place]. Provider: Pain Caterina 2 [address] [facility], John Will J, [address] [place] [address] John, is, [place], John, [place], [id number] [place], , [place]. s, [place], [id number] tel: [phone] , [place] [id number] . tel: tel: [phone] OFFICE VISIT, [facility] Radiculopathy, [facility] (chief lumbar [place]. TELEMEDICINE Pain Caterina complaint) regionPostlaminect 2 7235 [facility], marquis syndrome, not John, [address] elsewhere [place] John, classifiedPain in is, [place], [place], left hipAnxiety [id number] [place], disorder, , US. [id number] unspecifiedPain in tel: , US thoracic [phone] tel: spineOsteoarthriti [phone] sChronic migraine without aura, intractable, without status migrainosusPain in right hipPain in left shoulderPain in right kneePain in left kneeFibromyalgiaOt her spondylosis, lumbar regionOther spondylosis, cervical regionLong term (current) use of opiate analgesicEncounter for therapeutic drug level monitoring OFFICE VISIT, [facility] Radiculopathy, [facility] (chief lumbar [place]. Provider: TELEMEDICINE Pain [place] complaint) regionPostlaminect 2 [address] [facility], marquis syndrome, not John, Will J , [address] elsewhere [place] [address] John classifiedPain in is, [place], John, Caterina, left hipAnxiety [id number] Augusta fischer [place], disorder, , [place]. s, [place], 812227829 unspecifiedPain in tel: [phone] , US thoracic [id number] . tel: spineOsteoarthriti tel : [phone] sChronic migraine 11420 45 without aura, intractable, without status migrainosusPain in right hipPain in left shoulderPain in right kneePain in left kneeFibromyalgiaOt her spondylosis, lumbar regionOther spondylosis, cervical regionLong term (current) use of opiate analgesic OFFICE VISIT, [facility] Radiculopathy, [facility] Referring [facility] (chief lumbar [place]. Provider: TELEMEDICINE Pain Caterina complaint) regionPostlaminect 2 [address] [facility], marquis syndrome, not Endy Lopez J , [address] elsewhere [place] [address] John classifiedPain in is, [place], John, [place], left hipAnxiety [id number] Augusta fischer [place], disorder, , [place]. s, [place], [id number] unspecifiedPain in tel: 5 [phone] , [place] thoracic [id number] . tel: spineOsteoarthriti tel : [phone] sChronic migraine 06077 45 without aura, intractable, without status migrainosusPain in right hipPain in left shoulderPain in right kneePain in left kneeFibromyalgiaOt her spondylosis, lumbar regionLong term (current) use of opiate analgesicOther spondylosis, cervical region OFFICE VISIT, [facility] Radiculopathy, [facility] (chief lumbar [place]. TELEMEDICINE Pain [place] complaint) regionPostlaminect 1 [address] [facility], marquis syndrome, not John, [address] elsewhere [place] John classifiedPain in is, [place], Caterina, left hipAnxiety [id number] [place], disorder, , US. 029627790 unspecifiedPain in tel: , US thoracic 08445038 tel: spineOsteoarthriti [phone] sChronic migraine without aura, intractable, without status migrainosusPain in right hipPain in left shoulderPain in right kneePain in left kneeFibromyalgiaOt her spondylosis, lumbar regionLong term (current) use of opiate analgesicOther spondylosis, cervical region OFFICE/OUTPAT [facility] Other spondylosis, shlomo Referring IENT VISIT, [facility] (chief cervical [place]. Provide r: EST Pain [place] complaint) regionRadiculopath 1 [address] [facility], y, lumbar John, Will J, [address] regionPostlaminect [place] [address] John, marquis syndrome, not is, [place], John, [place], elsewhere [id number] [place], classifiedPain in , [place]. s, MN, 253632012 left hipAnxiety tel: [phone] , [place] disorder, [id number] . tel: unspecifiedPain in tel :2 [phone] thoracic 8605710 spineOsteoarthriti sChronic migraine without aura, intractable, without status migrainosusPain in right hipPain in left shoulderPain in right kneePain in left kneeFibromyalgiaOt her spondylosis, lumbar regionLong term (current) use of opiate analgesic OFFICE VISIT, [facility] Other spondylosis, anglucrecia EST [facility] (chief cervical [place]. TELEMEDICINE Pain Caterina complaint) regionRadiculopath 1 [address] [facility], y, lumbar John, [address] regionPostlaminect [place] John, marquis syndrome, not is, [place], [place], elsewhere [id number] [place], classifiedPain in , US. 243376126 left hipAnxiety tel: , [place] disorder, [id number] tel: unspecifiedPain in 43938560 thoracic spineOsteoarthriti sChronic migraine without aura, intractable, without status migrainosusPain in right hipPain in left shoulderPain in right kneePain in left kneeFibromyalgiaOt her spondylosis, lumbar regionLong term (current) use of opiate analgesic OFFICE VISIT, [facility] Other spondylosis, Sep- K shlomo Referring [facility] (chief cervical [place]. Provider: TELEMEDICINE Pain Caterina complaint) regionRadiculopath 1 [address] [facility], y, lumbar John, Will J, [address] regionPostlaminect [place] [address] John, marquis syndrome, not is, [place], John, [place], elsewhere [id number] [place], classifiedPain in , [place]. s, [place], 992402755 left hipAnxiety tel: [phone] , [place] disorder, [id number] . tel: unspecifiedPain in tel : [phone] thoracic 9492977 spineOsteoarthriti sChronic migraine without aura, intractable, without status migrainosusPain in right hipPain in left shoulderPain in right kneePain in left kneeFibromyalgiaOt her spondylosis, lumbar regionLong term (current) use of opiate analgesic [facility] Encounter for Mario Referr ing [facility] therapeutic drug [place]. Pro vider: Pain [place] level 1 [address] [facility], monitoringLong John, Will J, [address] term (current) use [place] [address] John, of opiate is, [place], John, [place], analgesic [id number] [place], , [place]. s, [place], 049649261 tel: [phone] , [place] [id number] . tel: tel: [phone] OFFICE/OUTPAT [facility] Other spondylosis, Aug-0 K shlomo Referring IENT VISIT, [facility] (chief lumbar [place]. Provider : EST Pain Caterina complaint) regionFibromyalgia 1 [address]235 [facility], Pain in left John, Will J, [address] kneePain in right [place] 72 [address] John, kneePain in left is, [place], John, [place], shoulderPain in [id number] [place], right hipChronic , [place]. s, MN, 924877939 migraine without tel:+ [phone] , [place] aura, intractable, 80084130 . tel: without status tel:+ [phone] migrainosusOsteoar 8412 345 thritisPain in thoracic spineAnxiety disorder, unspecifiedPain in left hipPostlaminectomy syndrome, not elsewhere classifiedRadiculo shane, lumbar regionOther spondylosis, cervical regionLong term (current) use of opiate analgesicEncounter for therapeutic drug level monitoring OFFICE VISIT, [facility] Other spondylosis, [facility] Referring [facility] (chief lumbar [facility]. Provider: TELEMEDICINE Pain Caterina complaint) regionFibromyalgia 1 7235 [facility], Pain in left John, Will J, [address] kneePain in right [place] 72 [address] John, kneePain in left is, [place], John, [place], shoulderPain in [id number] Augusta fischer [place], right hipChronic , [place]. s, MN, 293788810 migraine without tel:+ [phone] , [place] aura, intractable, 38941756 . tel: without status tel: [phone] migrainosusOsteoar 8412 345 thritisPain in thoracic spineAnxiety disorder, unspecifiedPain in left hipPostlaminectomy syndrome, not elsewhere classifiedRadiculo shane, lumbar regionOther spondylosis, cervical regionLong term (current) use of opiate analgesic OFFICE VISIT, [facility] Other spondylosis, Kanu0 K [facility] Referring [facility] (chief lumbar [facility]. Provider: TELEMEDICINE Pain [place] complaint) regionFibromyalgia 1 [facility] [facility], Pain in left John, Will J, [address] kneePain in right [place] 72 [address] John, kneePain in left is, [place], John, Caterina, shoulderPain in [id number] [place], right hipChronic , [place]. s, MN, 115848157 migraine without tel:+ [phone] , [place] aura, intractable, 27161319 . tel: without status tel: [phone] migrainosusOsteoar 8412 345 thritisPain in thoracic spineAnxiety disorder, unspecifiedPain in left hipPostlaminectomy syndrome, not elsewhere classifiedRadiculo shane, lumbar regionOther spondylosis, cervical regionLong term (current) use of opiate analgesic OFFICE VISIT, [facility] Other spondylosis, [facility] Referring [facility] (chief lumbar 5-202 [place]. Provider: TELEMEDICINE Pain Caterina complaint) regionFibromyalgia 1 [address]235 [facility], Pain in left John, Will J, [address] kneePain in right [place] 72 [address] John, kneePain in left is, [place], John, Caterina, shoulderPain in 198576494 [place], right hipChronic , [place]. s, MN, 423384618 migraine without tel: [phone] , [place] aura, intractable, 93278846 . tel: without status tel: [phone] migrainosusOsteoar 8412 345 thritisPain in thoracic spineAnxiety disorder, unspecifiedPain in left hipPostlaminectomy syndrome, not elsewhere classifiedRadiculo shane, lumbar regionOther spondylosis, cervical regionLong term (current) use of opiate analgesic [facility] Other spondylosis, March- Mario Referring [facility] (chief lumbar 4-202 [place]. Provider: Pain Caterina complaint) regionFibromyalgia 1 [address] [facility], Pain in left John, Will J, [address] kneePain in right [place] [address] John, kneeChronic is, [place], John, Caterina, migraine without [id number] [place], aura, intractable, , [place]. s, [place] , 773491562 without status tel: [phone] , [place] migrainosusPain in 47447701 . tel: right hipPain in tel: [phone] left shoulderPain 29075 45 in right shoulderOsteoarthr itisPain in thoracic spineAnxiety disorder, unspecifiedPain in left hipPostlaminectomy syndrome, not elsewhere classifiedRadiculo shane, lumbar regionOther spondylosis, cervical regionLong term (current) use of opiate analgesic OFFICE VISIT, [facility] Other spondylosis, Mar-2 K angas Referring [facility] (chief lumbar [place]. Provider: TELEMEDICINE Pain Caterina complaint) regionFibromyalgia 1 [address] [facility], Pain in left John, Will J, [address] kneePain in right [place] 72 [address] John, kneeChronic is, [place], John, [place], migraine without [id number] [place], aura, intractable, , [place]. s, [place] , 504836543 without status tel: [phone] , [place] migrainosusPain in 53380552 . tel: right hipPain in tel:2 [phone] left shoulderPain 05282 45 in right shoulderOsteoarthr itisPain in thoracic spineAnxiety disorder, unspecifiedPain in left hipPostlaminectomy syndrome, not elsewhere classifiedRadiculo shane, lumbar regionOther spondylosis, cervical regionLong term (current) use of opiate analgesic OFFICE VISIT, [facility] Pain in left Fe- Mario Referring [facility] (chief hipPostlaminectomy [place]. P rovider: TELEMEDICINE Pain [place] complaint) syndrome, not 1 [address] [facility], elsewhere John, Endy J, [address] classifiedRadiculo [place] [address] John, shane, lumbar is, [place], John, Caterina, regionOther [id number] [place], spondylosis, , [place]. s, [place], 471599546 cervical tel: [phone] , [place] regionOther 86164284 . tel: spondylosis, tel: 2 [phone] lumbar 9553081 regionFibromyalgia Pain in left kneePain in right kneeChronic migraine without aura, intractable, without status migrainosusPain in right hipPain in left shoulderPain in right shoulderOsteoarthr itisPain in thoracic spineAnxiety disorder, unspecifiedLong term (current) use of opiate analgesic OFFICE VISIT, [facility] Pain in left Mario Referring [facility] (chief hipPostlaminectomy [place]. P rovider: TELEMEDICINE Pain Caterina complaint) syndrome, not 1 7235 [facility], elsewhere Endy Lopez J, [address] classifiedRadiculo [place] [address] John, shane, lumbar is, [place], John, Caterina, regionOther [id number] [place], spondylosis, , [place]. s, [place], 116988055 cervical tel:+ [phone] , [place] regionOther 83522499 . tel: spondylosis, tel: 2 [phone] lumbar 8397701 regionFibromyalgia Pain in left kneePain in right kneeChronic migraine without aura, intractable, without status migrainosusPain in right hipPain in left shoulderPain in right shoulderOsteoarthr itisPain in thoracic spineAnxiety disorder, unspecifiedLong term (current) use of opiate analgesic OFFICE VISIT, [facility] Pain in left Mario Referring [facility] (chief hipPostlaminectomy [place]. P rovider: TELEMEDICINE Pain Caterina complaint) syndrome, not 0 7235 [facility], elsewhere Endy Lopez J, [address] classifiedRadiculo [facility] 7 [address] John, shane, lumbar is, [place], John, [place], regionOther [id number] [place], spondylosis, , [place]. s, [place], 833410282 cervical tel: [phone] , [place] regionOther 30953786 . tel: spondylosis, tel: 2 [phone] lumbar 6282189 regionFibromyalgia Pain in left kneePain in right kneeChronic migraine without aura, intractable, without status migrainosusPain in right hipPain in left shoulderPain in right shoulderOsteoarthr itisPain in thoracic spineAnxiety disorder, unspecifiedLong term (current) use of opiate analgesic OFFICE VISIT, [facility] Postlaminectomy [facility] Referring [facility] (chief syndrome, not [place]. Provid er: TELEMEDICINE Pain Caterina complaint) elsewhere 0 7235 [facility] Andr ew Clinic, classifiedRadiculo John Will J, [address] shane, lumbar [place] 7235 [facility] John, regionOther is, [place], John, [place], spondylosis, [id number] [place], cervical , [place]. s, [place], 279094355 regionOther tel:+ [phone] , [place] spondylosis, 58896934 . tel: lumbar tel:+ [phone] regionFibromyalgia 8412 345 Pain in left kneePain in right kneeChronic migraine without aura, intractable, without status migrainosusPain in left hipPain in right hipPain in left shoulderPain in right shoulderOsteoarthr itisPain in thoracic spineAnxiety disorder, unspecifiedLong term (current) use of opiate analgesic OFFICE/OUTPAT [facility] Postlaminectomy Oct- Gonzalez as Referring IENT VISIT, [facility] (chief syndrome, not [place]. Pr ovider: EST Pain Caterina complaint) elsewhere 0 7235 [facility], classifiedRadiculo Endy Lopez J, [address] shane, lumbar [place] 7235 [facility] John, regionOther is, [place], John, Caterina, spondylosis, [id number] [place], cervical , [place]. s, [place], 844058791 regionOther tel:+ [phone] , [place] spondylosis, 71529376 . tel: lumbar tel: [phone] regionFibromyalgia 8412 345 Pain in left kneePain in right kneeChronic migraine without aura, intractable, without status migrainosusPain in left hipPain in right hipPain in left shoulderPain in right shoulderOsteoarthr itisPain in thoracic spineAnxiety disorder, unspecifiedLong term (current) use of opiate analgesicEncounter for therapeutic drug level monitoring OFFICE VISIT, [facility] Pain Postlaminectomy Sep-2 Gonzalez as Referring EST [facility] (chief syndrome, not [place]. Provid er: TELEMEDICINE Pain Caterina complaint) elsewhere 0 7235 [facility] Andr ew Clinic, classifiedRadiculo John, Will J, [address] shane, lumbar [place] [address] John, regionOther is, [place], John, Caterina, spondylosis, [id number] [place], cervical , [place]. s, [place], 101416079 regionOther tel: [phone] , [place] spondylosis, 52918677 . tel: lumbar regionLong tel: [phone] term (current) use 8412 345 of opiate analgesicAnxiety disorder, unspecifiedFibromy algiaPain in left kneePain in right kneeChronic migraine without aura, intractable, without status migrainosusPain in left hipPain in right hipPain in left shoulderPain in right shoulderOsteoarthr itisPain in thoracic spine OFFICE VISIT, [facility] Pain Postlaminectomy Yeimy en Referring [facility] (chief syndrome, not Venu. Provid er: TELEMEDICINE Pain [place] complaint) elsewhere 0 1455 [facility], [facility] [address] Jermaine l J, [address] shane, lumbar 11 Umair [address] John, regionOther 100, John, [place], spondylosis, [place], cervical e, [place], s, [place], 725426348 regionOther [id number] [phone] , [place] spondylosis, , [place]. . tel: lumbar regionLong tel: te l:+ [phone] term (current) use [id number] of opiate analgesicAnxiety disorder, unspecified [facility] Postlaminectomy RN RN. [facility] syndrome, not [address] Prov ider: Pain Caterina elsewhere 0 [facility], classified [place] Will J, [address] is, [place], [address] John, [id number] John, [place], , [place]. [place], tel: s, [place], [phone] [phone] , [place] . tel: tel: [phone] [facility] Postlaminectomy David Ref [facility] syndrome, not 4-202 Gi. Provider: Pain Center elsewhere 0 7235 [facility], classified JohnEndy J, [address] [place] [address] John, is, [place], Chandana Lopeza, [id number] [place], , [place]. s, [place], 111465602 tel: [phone] , [place] [id number] . tel: tel:+2 [phone] OFFICE VISIT, [facility] Postlaminectomy Kanga s Referring [facility] (chief syndrome, not [place]. Provider: TELEMEDICINE Pain complaint) elsewhere 0 7235 [facility], classifiedRadiculo JohnEndy J, [address] shane, lumbar [place] [address] John, regionOther is, [place], John, [place], spondylosis, [id number] [place], cervical , [place]. [place], [place], 699109863 regionOther tel: [phone] , [place] spondylosis, [id number] . tel: lumbar regionLong tel: [phone] term (current) use [id number] of opiate analgesicAnxiety disorder, unspecified [facility] Postlaminectomy Mario [facility]fe [facility] syndrome, not [place]. Provid er: Pain Caterina elsewhere 0 7235 [facility], classified JohnEndy J, [address] [place] [address] John, is, [place], John [place], [id number] [place], , [place]. [place], [place], 136110990 tel: [phone] , [place] [id number] . tel: tel:[phone] [facility] Postlaminectomy Kokayeff Ref [facility] syndrome, not Gi. Provider: Pain Center elsewhere 0 7235 [facility], classified Endy Lopez J, [address] [place] [address] John, is, [place], John, Caterina, [id number] [place], , [place]. [place], [place], 897[address]7877 tel: [phone] , [place] [id number] . tel: tel:[phone] OFFICE VISIT, [facility] Back Pain Postlaminectomy Michael s Referring [facility] (chief syndrome, not [place]. Provider: TELEMEDICINE Pain complaint) elsewhere 0 7235 [facility], classifiedRadiculo Endy Lopez J, 7235 [place] shane, lumbar [place] 7235 O [facility] John, regionLong term is, [place], John, [place], (current) use of [id number] [place], opiate , [place]. [place], [place], 671797638 analgesicOther tel: [phone] , [place] spondylosis, [id number] . tel: cervical tel: [phone] regionOther [id number] spondylosis, lumbar region [facility] No Information [facility] [place]. Pain Caterina 0 7235 [facility], John, 7235 [facility] [place], is, [place], [place], [id number] [place], , [place]. [id number] tel: , [place] [id number] tel: [phone] OFFICE VISIT, [facility] Back Pain CervicalgiaPostlam K shlomo Referring [facility] (chief inectomy syndrome, [place]. P rovider: TELEMEDICINE Pain [place] complaint) not elsewhere 0 7235 [facility], classifiedRadiculo Endy Lopez J, 7235 [place] shane, lumbar [place] 7235 O [facility] John, regionLong term is, [place], John, [place], (current) use of [id number] [place], opiate analgesic , [place]. [place], [place], 203773406 tel: [phone] , [place] [id number] . tel: tel:[phone] Psych Dx Eval [place] Pain disorder with Juliana e [facility] related Maikel Provider: Pain psychological 0 Peg. 7235 [facility], factorsBipolar Ohma Will J, 7235 [place] disorder John, 7235 [facility] John, [place], Caterina, is, [place], [place], [id number] s, [place], [address] , [place]. [address] , [place] tel: . tel: [phone] tel: [phone] OFFICE VISIT, [facility] Back Pain Postlaminectomy Apr-2 Michael s Referring [facility] (chief syndrome, not [place]. Provider: TELEMEDICINE Pain complaint) elsewhere 0 7235 [facility] Clinic, classifiedLong John Endy Jorge, 7235 [place] term (current) use [place] 7 [address] John, of opiate is, [place], John, [place], analgesicRadiculop [id number] [place], athy, lumbar , [place]. [place], [place], 485123027 regionCervicalgia tel: [phone] , [place] [id number] . tel: tel: [phone] [facility] No Information [facility] Peter. Pain Alma 0 7235 [facility], John, 7235 [place], is, [place], [place], [id number] [place], , [place]. [id number] tel: , [place] [id number] tel: [phone] OFFICE/OUTPAT [facility] Back Pain Postlaminectomy Jan- Gonzalez as Referring IENT VISIT, [facility] (chief syndrome, not [place]. Pr ovider: EST Pain Caterina complaint) elsewhere 0 7235 [facility], classifiedLong Endy Lopez, 7235 [place] term (current) use [place] 7 235 [address] John, of opiate is, [place], John, [place], analgesicCervicalg [id number] [place], iaRadiculopathy, , [place]. [place], [place], 158466412 lumbar region tel: [phone] , [place] [id number] . tel: tel:[phone] [facility] Postlaminectomy Mar- Garcia Refe rring [facility] syndrome, not Viry. Provider: Pain Center elsewhere 0 7235 [facility], classified John, Will J, [address] [place] [address] John, is, [place], Caterina Lopez, [id number] [place], , [place]. [place], [place], 356208032 tel:+ [phone] , [place] [id number] . tel: tel:[phone] OFFICE/OUTPAT [facility] Back Pain Postlaminectomy Gonzalez as Referring IENT VISIT, [facility] (chief syndrome, not 8 [place]. Pr ovider: EST Pain Caterina complaint) elsewhere 0 7235 [facility], classifiedCervical John, Will J, 7235 [place] giaRadiculopathy, [place] 72 35 [place] John, lumbar regionLong is, [place], Caterina Lopez, term (current) use [id number] [place], of opiate , [place]. [place], [place], 154130447 analgesicCarrier tel: [phone] , [place] of Methicillin [id number] . tel: susceptible tel:2 [phone] Staphylococcus [id number] aureusCarrier of Methicillin resistant Staph aureusMethicillin resis staph infct causing diseases classd elsMelissacounter for therapeutic drug level monitoring [facility] Postlaminectomy [facility] syndrome, not [place]. Pain Caterina elsewhere 0 7235 [facility], classified John, 7235 [address] John, is, [place], Caterina, [id number] [place], , [place]. 505606911 tel:+ , [place] [id number] tel: [phone] OFFICE/OUTPAT [facility] Back Pain Radiculopathy, Kanga s Referring IENT VISIT, [facility] (chief lumbar [place]. Provider : EST Pain [place] complaint) regionPostlaminect 0 7235 [facility], marquis syndrome, not John, Will J , 7235 [address] elsewhere [place] 7235 [place] John, classifiedCervical is, [place], Caterina Lopez, giaLong term [id number] [place], (current) use of , [place]. s, [place], 651785277 opiate analgesic tel: [phone] , [place] [id number] . tel: tel:[phone] OFFICE/OUTPAT [facility] Back Pain Radiculopathy, Kanga s Referring IENT VISIT, [facility] (chief lumbar 7-201 [place]. Provider : EST Pain [place] complaint) regionCervicalgiaL 9 35 [place] [facility], beryl term (current) Endy Lopez J, 7235 [address] use of opiate [place] [address] hms John, analgesicPostlamin is, [place], John, Caterina, ectomy syndrome, [id number] [place], not elsewhere , [place]. [place], MN, 623530157 classified tel: [phone] , US [id number] . tel: tel: [phone] OFFICE/OUTPAT [facility] Back Pain Chronic pain Referring IENT VISIT, [facility] (chief syndromePostlamine 6-201 [place] . Provider: EST Pain [place] complaint) ctomy syndrome, 9 35 [place] [facility], not elsewhere Endy Lopez J, 7235 [address] classifiedRadiculo [place] 7 235 [address]ms John, shane, lumbar is, [place], John, [place], regionCervicalgiaL [id number] [place], beryl term (current) , [place]. [place], [place] , 619325961 use of opiate tel: [phone] , [place] analgesic [id number] . 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 Provider: EST Pain [place] complaint) opiate 9 [facility], analgesicPostlamin JohnEndy J, 7235 [address] ectomy syndrome, [place] 723 5 Ohms John, not elsewhere is, [place], John, Caterina, classifiedRadiculo [id number] [place], shane, lumbar , [place]. s, MN, 028468450 regionCervicalgia tel: [phone] , US [id number] . tel: tel:[phone] OFFICE/OUTPAT [facility] Back Pain Postlaminectomy Carlos as Referring IENT VISIT, [facility] (chief syndrome, not 0-201 [place]. Pr ovider: EST Pain [place] complaint) elsewhere 9 7235 [facility], classifiedLow back John, Will J, 7235 [address] painCervicalgiaLon [place] 7 235 [address]ms John, g term (current) is, [place], John, [place], use of opiate [id number] [place], analgesic , [place]. [place], [place], 110981588 tel:[phone] , US 31100882 . tel: tel:[phone] OFFICE/OUTPAT [facility] Back Pain Postlaminectomy Carlos as Referring IENT VISIT, [facility] (chief syndrome, not 0-201 [place]. Pr ovider: EST Pain [place] complaint) elsewhere 9 7235 [facility], classifiedLow back John, Will J, 7235 [address] painCervicalgiaLon [place] 7 235 [address]ms John, g term (current) is, [place], John, [place], use of opiate [id number] [place], analgesic , [place]. [place], [place], 750940897 tel:[phone] , [place] [id number] . tel: tel:[phone] OFFICE/OUTPAT [facility] Back Pain Postlaminectomy Carlos as Referring IENT VISIT, [facility] (chief syndrome, not 1-201 [place]. Pr ovider: EST Pain [place] complaint) elsewhere 9 7235 [facility], classifiedLow back John, Will J, [address] painCervicalgiaEnc [place] 7 235 Oh[address] more [place] for is, [place], John, [place], therapeutic drug [id number] [place], level , [place]. [place], [place], 510065476 monitoringLong tel: [phone] , [place] term (current) use 31285516 . tel: of opiate tel:2 [phone] analgesic [id number] OFFICE/OUTPAT [facility] Back Pain Postlaminectomy March- Gonzalez as Referring IENT VISIT, [facility] (chief syndrome, not 1-201 [place]. Pr ovider: EST Pain Caterina complaint) elsewhere 9 7235 [facility], classifiedLow back John, Will J, 7235 [address] painCervicalgiaLon [place] 7 235 [address]ms John, g term (current) is, [place], John, Caterina, use of opiate [id number] [place], analgesic , [place]. [place], [place], 632897379 tel: [phone] , [place] [id number] . tel: tel:[phone] OFFICE/OUTPAT [facility] Back Pain Postlaminectomy Feb-0 Garcia Referring IENT VISIT, [facility] (chief syndrome, not 2-201 Viry. Pr ovider: EST Pain Caterina complaint) elsewhere 9 7235 [facility], classifiedRadiculo John, Will J, 7235 [place] shane, lumbar [place] 7235 O hms John, regionCervicalgiaL is, [place], John, [place], beryl term (current) [id number] [place], use of opiate , [place]. [place], [place], 283329582 analgesic tel:[phone] , US [id number] . tel: tel:[phone] OFFICE/OUTPAT [facility] Back Pain Chronic pain Nov- Mario Referring IENT VISIT, [facility] (chief syndromeRadiculopa 3-201 [place] . Provider: EST Pain [place] complaint) thy, lumbar 9 7235 [facility], regionLow back John, Will J, 7235 [address] painLong term [place] 7235 O hms John, (current) use of is, [place], John, [place], opiate analgesic [id number] [place], , [place]. [place], [place], 857261913 tel: [phone] , US [id number] . tel: tel:[phone] [facility] Postlaminectomy Nov- Mario [facility] syndrome, not 3-201 [place]. Provid er: Pain Caterina elsewhere 9 7235 [facility], classified Endy Lopez, [address] [place] 7[address] Ohms John, is, [place], Caterina Lopez, [id number] [place], , [place]. [place], [place], 642195379 tel: [phone] , US [id number] . tel: tel:[phone] OFFICE/OUTPAT [facility] Back Pain Radiculopathy, Kanga s Referring IENT VISIT, [facility] (chief lumbar regionLow [place]. Provider: EST Pain Caterina complaint) back painLong term 8 7235 [facility], (current) use of Endy Lopez, 7235 [place] opiate analgesic [place] 723 5 Ohms John, is, [place], Caterina Lopez, [id number] [place], , [place]. [place], [place], 162272019 tel: [phone] , [place] [id number] . tel: tel:[phone] [facility] Postlaminectomy Sep- Mairo [facility] syndrome, not 1-201 [place]. Provid er: Pain [place] elsewhere 8 7235 [facility], classified Endy Lopez, 7235 [address] [place] 7[address] Ohms John, is, [place], Caterina Lopez, [id number] [place], , [place]. [place], [place], 658917869 tel: [phone] , US [id number] . tel: tel:[phone] [facility] Postlaminectomy Aug- Garcia [facility] syndrome, not 5-201 Viry. Provider: Pain Center elsewhere 8 7235 [facility], classified Endy Lopez, [address] [place] 7[address] Ohms John, is, [place], Caterina Lopez, [id number] [place], , [place]. [place], [place], 730774438 tel: [phone] , US [id number] . tel: tel: [phone] OFFICE/OUTPAT [facility] Back Pain Postlaminectomy Oct-2 Gonzalez as Referring IENT VISIT, [facility] (chief syndrome, not 2-201 [place]. Pr ovider: EST Pain [place] complaint) elsewhere 8 7235 [facility], classifiedRadiculo Endy Lopez, 7235 [facility] shane, lumbar [place] [address]ms John, regionLow back is, [place], John, Caterina, pain [id number] [place], , [place]. [place], [place], 548798850 tel: [phone] , [place] [id number] . tel: tel: [phone] [facility] Postlaminectomy Oct-0 Mario [facility] syndrome, not 1-201 [place]. Provid er: Pain Caterina elsewhere 8 7235 [facility], classifiedLow back Endy Lopez J, 7235 [place] pain [place] 7235 [facility] John, is, [place], Chandana Lopeza, [id number] [place], , [place]. [place], [place], 204424774 tel: [phone] , [place] [id number] . tel: tel: [phone] [facility] Postlaminectomy Sep-2 Garcia [facility] syndrome, not 7-201 Viry. Provider: Pain Center elsewhere 8 7235 [facility], classified John Will J, 7235 [address] [place] 7235 [facility] John, is, [place], Chandana Lopeza, [id number] [place], , [place]. [place], [place], 361224187 tel: [phone] , [place] [id number] . tel: tel:[phone] OFFICE/OUTPAT [facility] Back Pain Chronic pain Sep-1 Mario Referring IENT VISIT, [facility] (chief syndromePostlamine 9-201 [place] . Provider: EST Pain [place] complaint) ctomy syndrome, 8 7235 [place] [facility], not elsewhere Endy Lopez, 7[address] classifiedRadiculo [place] 7 235 [address]ms John, shane, lumbar is, [place], John, Caterina, regionLow back [id number] [place], pain , [place]. [place], [place], 549899659 tel:+ [phone] , [place] [id number] . tel: tel:[phone] OFFICE/OUTPAT [facility] Back Pain Chronic pain Sep-0 Mario Referring IENT VISIT, [facility] (chief syndromeCervicalgi 5- [place] . Provider: EST Pain Caterina complaint) aPostlaminectomy 8 7235 [address]ms [facility], syndrome, not Endy Lopez, 7235 [address] elsewhere [place] 7235 Ohms John, classifiedLow back is, [place], John, Caterina, painRadiculopathy, [id number] [place], lumbar region , [place]. [place], [place], 100289742 tel: [phone] , [place] [id number] . tel: tel:[phone] OFFICE/OUTPAT [facility] Back Pain Postlaminectomy Aug-0 Gonzalez as Referring IENT VISIT, [facility] (chief syndrome, not 6- [place]. Pr ovider: EST Pain [place] complaint) elsewhere 8 7235 [place] [facility], classifiedChronic Endy Lopez , 7235 [place] pain [place] 7[address]ms John, syndromeCervicalgi is, [place], John, [place], aLow back pain [id number] [place], , [place], [place], 894018077 tel: [phone] , US [id number] . tel: tel:[phone] OFFICE/OUTPAT [facility] Back Pain Chronic pain Kanu-0 Mario Referring IENT VISIT, [facility] (chief syndromeCervicalgi 6-201 [place] . Provider: EST Pain [place] complaint) aLow back pain 8 7235 [place] [facility], John, Will J, 7[address] [place] 7235 Ohms John, is, [place], John, [place], [id number] [place], , [place]. [place], [place], 343840921 tel: [phone] , US [id number] . tel: tel: [phone] OFFICE/OUTPAT [facility] Back Pain CervicalgiaChronic Apr-1 K angas Referring IENT VISIT, [facility] (chief pain syndromeLow 3-201 [place]. Provider: EST Pain [place] complaint) back painLumbago 8 7235 [facility], with sciatica, John, Will J, 7235 [address] left [place] 7235 [place] John, sidePostlaminectom is, [place], Caterina Lopez, y syndrome, not [id number] [place], elsewhere , [place]. [place], [place], 984958159 classifiedLong tel:43 , [place] term (current) use 22992319 . tel: of opiate tel: [phone] analgesic [phone] OFFICE/OUTPAT [facility] Back Pain CervicalgiaChronic Apr-0 K angas Referring IENT VISIT, [facility] (chief pain syndromeLow 6-201 [place]. Provider: EST Pain Caterina complaint) back 8 7235 [facility], painPostlaminectom Endy Lopez J, 7235 Ohms y syndrome, not [place] 7235 [place] John, elsewhere is, MNJohn [place], classified [id number] [place], , [place], [place], 009401233 tel:[phone] , US [id number] . tel: tel: [phone] OFFICE/OUTPAT [facility] Back Pain CervicalgiaChronic Feb-0 K angas Referring IENT VISIT, [facility] (chief pain syndromeLow 6-201 [place]. Provider: EST Pain [place] complaint) back 8 7235 [facility], painPostlaminectom Endy Lopez J, 7235 Ohms y syndrome, not [place] 7235 [place] John, elsewhere is, [place], John, [place], classified [id number] [place], , [place]. [place], [place], 226216358 tel: [phone] , [place] 54174976 . tel: tel: [phone] OFFICE/OUTPAT [facility] Back Pain CervicalgiaChronic K shlomo Referring IENT VISIT, [facility] (chief pain syndromeLow 8201 [place]. Provider: EST Pain [place] complaint) back 7 7235 [facility], painPostlaminectom John, Will J, 7235 [address]ms y syndrome, not [place] 7235 [place] John, elsewhere is, [place], John, [place], classified [id number] [place], , [place], [place], 911973983 tel:[phone] , [place] [id number] . tel: tel: [phone] OFFICE/OUTPAT [facility] Back Pain CervicalgiaLow Kangiqra s Referring IENT VISIT, [facility] (chief back 0-201 [place]. Provider : EST Pain [place] complaint) painPostlaminectom 7 7235 [facility], y syndrome, not John, Will J, 7235 Ohms elsewhere [place] 7235 [place] John, classified is, [place], John, Caterina, [id number] [place], , [place]. [place], [place], 535311624 tel: [phone] , [place] [id number] . tel: tel: [phone] OFFICE/OUTPAT [facility] Back Pain Postlaminectomy Gonzalez as Referring IENT VISIT, [facility] (chief syndrome, not 9201 [place]. Pr ovider: EST Pain Caterina complaint) elsewhere 7 7235 [facility], classifiedLow back John, Will J, 7235 [address]ms painCervicalgia [place] 7235 Ohms John, is, [place], John, [place], [id number] [place], , [place]. [place], [place], 040247282 tel: [phone] , US [id number] . tel: tel: [phone] OFFICE/OUTPAT [facility] Back Pain Low back May- Mario Ref erring IENT VISIT, [facility] (chief painCervicalgiaChr [place] . Provider: EST Pain [place] complaint) onic pain 7 7235 [facility], syndromePostlamine John, Endy J, 7235 [place] ctomy syndrome, [place] 7235 [place] John, not elsewhere is, [place], Caterina Lopez, classified [id number] [place], , [place], [place], 071269371 tel: [phone] , [place] [id number] . tel: tel: [phone] OFFICE/OUTPAT [facility] Back Pain Low back March-3 Mario Ref erring IENT VISIT, [facility] (chief painCervicalgiaChr [place] . Provider: EST Pain [place] complaint) onic pain 7 7235 [facility], syndromePostlamine Endy Lopez J, 7235 [place] ctomy syndrome, [place] 7235 [place] John, not elsewhere is, MNJohn [place], classified [id number] [place], , [place]. [place], [place], 741054366 tel: [phone] , US [id number] . tel: tel: [phone] OFFICE/OUTPAT [facility] Back Pain Low back May-0 Mario Ref erring IENT VISIT, [facility] (chief painCervicalgiaChr [place] . Provider: EST Pain Caterina complaint) onic pain syndrome 7 7235 [facility], Endy Lopez J, 7235 [address]ms [place] 7235 [facility] John, is, [place], Caterina Lopez, [id number] [place], , [place]. [place], [place], 282085484 tel: [phone] , [place] [id number] . tel: tel: [phone] OFFICE/OUTPAT [facility] Back Pain CervicalgiaChronic Apr-0 K angas Referring IENT VISIT, [facility] (chief pain syndromeLow [place]. Provider: EST Pain Caterina complaint) back 7 7235 [facility], painPostlaminectom John, Endy J, 7235 Ohms y syndrome, not [place] 7235 [place] John, elsewhere is, [place], Caterina Lopez, classified [id number] [place], , [place], [place], 662093164 tel:+ [phone] , [place] [id number] . tel: tel:[phone] OFFICE/OUTPAT [facility] Back Pain Low back Jan- Mario Ref erring IENT VISIT, [facility] (chief painCervicalgiaChr [place] . Provider: EST Pain [place] complaint) onic pain 7 7235 [facility], syndromePostlamine John, Endy J, 7235 [place] ctomy syndrome, [place] 7235 [place] John, not elsewhere is, MNJohn [place], classified [id number] [place], , [place]. [place], [place], 680837437 tel: [phone] , US [id number] . tel: tel:[phone] OFFICE/OUTPAT [facility] Back Pain CervicalgiaLow Kanga s Referring IENT VISIT, [facility] (chief back painChronic [place]. Provider: EST Pain Catreina complaint) pain syndrome 7 7235 [facility], Endy Lopez J, 7235 [address] 7235 [place] John, is, [place], Caterina Lopez, [id number] [place], , [place], [place], 813085811 tel: [phone] , [place] [id number] . tel: tel:[phone] OFFICE/OUTPAT [facility] Back Pain Low back Mario Ref erring IENT VISIT, [facility] (chief painCervicalgiaChr [place] . Provider: EST Pain Caterina complaint) onic pain syndrome 7 7235 [facility], John Will J, 7235 [address] 7235 [place] John, is, [place], John, [place], [id number] [place], , [place]. [place], [place], 521061023 tel:[phone] , [place] [id number] . tel: tel: [phone] OFFICE/OUTPAT [facility] Back Pain Low back Dec-0 Mario Ref erring IENT VISIT, [facility] (chief painCervicalgiaPos 2 [place] . Provider: EST Pain [place] complaint) [facility]ctomy 6 [facility] syndrome, not John, Will J, 7235 Ohms elsewhere [place] 7235 Ohms John, classifiedChronic is, [place], John, Caterina, pain syndrome [id number] Janae weiner [place], , [place]. [place], [place], 433142743 tel:[phone] , [place] [id number] . tel: tel: [phone] OFFICE/OUTPAT [facility] Back Pain Low back Nov-0 Mario Ref erring IENT VISIT, [facility] (chief painCervicalgiaPos [place] . Provider: EST Pain Caterina complaint) [facility]ctomy 6 [facility], syndrome, not John, Will J, 7235 Ohms elsewhere [place] 7235 Ohms John, classified is, [place], John, [place], [id number] [place], , [place]. [place], [place], 298829264 tel:[phone] , US [id number] . tel: tel: [phone] OFFICE/OUTPAT [facility] Back Pain Lumbago with Aug- Van Referring IENT VISIT, [facility] (chief sciatica, left 4-201 [place] Provider: EST Pain Caterina complaint) sideLong term 6 Kera. [facility], (current) use of 7235 [address]ms Will J, 7235 Ohms opiate John, [address] John, analgesicCervicalg [place], [place], [place], [place], [id number] [place], [place], [id number] , [place]. [address] , [place] tel: . tel: [phone] tel: [phone] OFFICE/OUTPAT [facility] Back Pain CervicalgiaLow Kanga s Referring IENT VISIT, [facility] (chief back Rosetta. Provider : EST Pain [place] complaint) painPostlaminectom 6 7235 [facility], y syndrome, not John, Will J, [address] elsewhere [place] [address] John, classified [place], [place], John [place], [id number] [place], , [place]. [place], [place], [id number] tel: [phone] , [place] [id number] . tel: tel: [phone] OFFICE/OUTPAT [facility] Back Pain Low back Mario Ref erring IENT VISIT, [facility] (chief painCervicalgiaPos Rosetta . Provider: EST Pain Caterina complaint) tlaminectomy 6 7235 [facility], syndrome, not John, Will J, 7235 [address] elsewhere [place] [address] John, [place], [place], John Caterina, [id number] [place], , [place]. [place], [place], [id number] tel: [phone] , [place] [id number] . tel: tel: [phone] OFFICE/OUTPAT [facility] Back Pain CervicalgiaLow Kanga s Referring IENT VISIT, [facility] (chief back painLumbago Rosetta. Provider: EST Pain [place] complaint) with sciatica, 6 7235 [facility], left side John, Will J, [address] [place] [address] John, [place], [place], John, [place], [id number] [place], , [place]. [place], [place], [id number] tel: [phone] , [place] [id number] . tel: tel: [phone] OFFICE/OUTPAT [facility] Back Pain Low back Mario Ref erring IENT VISIT, [facility] (chief painCervicalgia Rosetta. Provider: EST Pain Caterina complaint) 6 7235 [facility], John, Endy J, [address] [place] [address] John, [place], [place], Caterina Lopez, [id number] [place], , [place]. [place], [place], [id number] tel:[phone] , [place] [id number] . tel: tel:[phone] OFFICE/OUTPAT [facility] Back Pain CervicalgiaLow March- Kanga s Referring IENT VISIT, [facility] (chief back painLumbago 0- Rosetta. Provider: EST Pain [place] complaint) with sciatica, 6 [facility], left John, Endy Patel, 7[address] sidePostlaminectom [place] 7 [address] John, y syndrome, not is, [place], John, Caterina, elsewhere [id number] [place], classified , [place]. [place], [place], [id number] tel: [phone] , [place] [id number] . tel: tel:[phone] OFFICE/OUTPAT [facility] Back Pain Low back Apr-2 Mario Ref erring IENT VISIT, [facility] (chief painCervicalgiaLum Rosetta . Provider: EST Pain [place] complaint) bago with 6 [facility], sciatica, left Endy Lopez, [address] [place] [address] John, [place], [place], Caterina Lopez, [id number] [place], , [place]. [place], [place], [id number] tel: [phone] , [place] [id number] . tel: [phone] OFFICE/OUTPAT [facility] Back Pain Low back Apr-0 Maroi Ref erring IENT VISIT, [facility] (chief painCervicalgia 6 Rosetta. Provider: EST Pain [place] complaint) 6 [facility], Endy Lopez, [address] [place] [address] Jhon, [place], [place], Caterina Lopez, [id number] [place], , [place]. [place], [place], [address] tel: [phone] , [place] [id number] . tel: tel: [phone] OFFICE/OUTPAT [facility] Back Pain Low back Mar-2 Mario Ref erring IENT VISIT, [facility] (chief painCervicalgiaLum 5-201 [place]etta . Provider: NEW Pain [place] complaint) bago with 6 [address] [facility], sciatica, left John, Will J, [address] sideLong term [place] [address] John, (current) use of [place], [place], John, Caterina, opiate [id number] [place], analgesicPostlamin , [place]. [place], [place] , [id number] ectomy syndrome, tel: [phone] , [place] not elsewhere [id number] . tel: classified tel: [phone] Family History Family Member Type Diagnosis Age At Onset Mother Problem (finding) back pain Payers Payer name Insurance type Covered democrat ID Authorization(s ) Medicare MB [id number] [employer] [facility] [id number] Social History Type Description Quantity Date Captured [...] due Goal CT-Colonography. Due on due Goal Review Allergy List. Due on due Goal OARS. Due on due Goal UDT. Due on due Goal TECHNICAL ADVISOR Paperwork. Due on due Goal Weight. Due on due Goal FIT-DNA. Due on due Goal HPV. Due on due Goal Order Annual PT. Due on due Goal Height. Due on due Goal AST (SGOT). Due on d ue Goal ALT (SGPT). Due on d ue Goal Hepatitis C screening. Due on du Goal Creatinine. Due on d ue Goal BURLAP BAG SEWER Scanned. Due on due Goal Unhealthy drug [...] Hepatitis C screening. Due on du e 2022 Bossman-28-2022 Goal FIT-DNA. Due on due Goal OARS. Due on due Goal AST (SGOT). Due on d ue Goal ALT (SGPT). Due on d ue Goal Creatinine. Due on d ue Goal Order Annual PT. Due on due Goal Tobacco Use. Due on due Goal FIT. Due on due Goal BURLAP BAG SEWER Scanned. Due on due Goal TECHNICAL ADVISOR Paperwork. Due on due Goal Medication Reconciliation. [...] Order Annual PT. Due on due Goal TECHNICAL ADVISOR Paperwork. Due on due Goal BURLAP BAG SEWER Scanned. Due on due Goal Height. Due on due Goal Unhealthy drug use screening. e on due Goal Review Allergy List. Due on due Goal Creatinine. Due on d ue Goal ALT (SGPT). Due on d ue Goal HPV. Due on due Goal Weight. Due on due Goal Hepatitis C screening. Due on Goal Update Social History. Due on Goal Medication Reconciliation. Due o n due Goal PHQ-9. Due on due Goal CT-Colonography. Due on due Goal FIT-DNA. Due on due Goal FIT. Due on due Goal Zoster vaccine (1st). Due on due Goal BURLAP BAG SEWER Scanned. Due on due Goal Unhealthy drug [...] due Goal FIT. Due on due Goal TECHNICAL ADVISOR Paperwork. Due on due Goal Hepatitis C screening. Due on du e Goal Zoster vaccine (1st). Due on due Goal Lipid panel. Due on due Goal AST (SGOT). Due on d ue Goal UDT. Due on due Goal BURLAP BAG SEWER Scanned. Due on due Goal FIT. Due on due Goal Height. Due on due Goal TECHNICAL ADVISOR Paperwork. Due on due Goal ALT (SGPT). [...] due Goal OARS. Due on due Goal HPV. Due on due Goal Review Allergy List. Due on due Goal Creatinine. Due on d ue Goal FIT-DNA. Due on due Goal Zoster vaccine (). Due on due Goal Order Annual PT. Due on due Goal HPV. Due on due Goal AST (SGOT). Due on d ue Goal Medication Reconciliation. Due o n due Goal TECHNICAL ADVISOR Paperwork. Due on due Goal ALT (SGPT). Due on d ue Goal Unhealthy drug use screening. Du e on due Goal FIT-DNA. Due on due Goal Creatinine. Due on d ue Goal Lipid panel. Due on due Goal BURLAP BAG SEWER Scanned. Due on due Goal Tobacco Use. [...] Goal Update Social History. Due on Goal TECHNICAL ADVISOR Paperwork. Due on due Goal BURLAP BAG SEWER Scanned. Due on due Goal AST (SGOT). [...] due Goal PHQ-9. Due on due Goal TECHNICAL ADVISOR Paperwork. Due on due Goal Update Social History. Due on e Goal Weight. Due on due Goal UDT. Due on due Goal BURLAP BAG SEWER Scanned. Due on due Goal AST (SGOT). Due on d ue Goal OARS. Due on due Goal Height. Due on due Goal ALT (SGPT). Due on d ue Goal Order Annual PT. Due on due Goal Tobacco Use. Due on due Goal Medication Reconciliation. Due o n due Goal PHQ-9. Due on due Goal TECHNICAL ADVISOR Paperwork. Due on due Goal UDT. Due on due Goal AST (SGOT). Due on d ue Goal BURLAP BAG SEWER Scanned. Due on due Goal OARS. Due on due Goal Update Social History. Due on Goal Review Allergy List. Due on due Goal Weight. Due on due Goal Tobacco Use. Due on due Goal Order Annual PT. Due on 022 due Goal Height. Due on due Goal ALT (SGPT). Due on d ue Goal Medication Reconciliation. Due o n due Goal Height. Due on due Goal Review Allergy List. Due on due Goal Weight. Due on due Goal Medication Reconciliation. Due o n due Goal Update Social History. Due on Goal Tobacco Use. Due on due Goal PHQ-9. Due on due Goal TECHNICAL ADVISOR Paperwork. Due on due Goal Order Annual PT. Due on 022 due Goal OARS. Due on due Goal BURLAP BAG SEWER Scanned. Due on due Goal ALT (SGPT). Due on d ue Goal AST (SGOT). Due on d ue Goal UDT. Due on due Goal Tobacco Use. Due on due Goal Medication Reconciliation. Due o n due Goal OARS. Due on due Goal BURLAP BAG SEWER Scanned. Due on due Goal Update Social History. Due on Goal AST (SGOT). Due on d ue Goal Height. Due on due Goal Weight. Due on due Goal Order Annual PT. Due on due Goal ALT (SGPT). Due on d ue Goal PHQ-9. Due on due Goal UDT. Due on due Goal Review Allergy List. Due on due Goal TECHNICAL ADVISOR Paperwork. Due on due Goal TECHNICAL ADVISOR Paperwork. Due on due Goal PHQ-9. Due on due Goal Weight. Due on due Goal Height. Due on due Goal OARS. Due on due Goal Medication Reconciliation. Due o n due Goal Update Social History. Due on Goal BURLAP BAG SEWER Scanned. Due on due Goal Order Annual [...] ALT (SGPT). Due on d ue Goal TECHNICAL ADVISOR Paperwork. Due on due Goal BURLAP BAG SEWER Scanned. Due on due Goal PHQ-9. Due on due Goal Medication Reconciliation. Due o n due Goal Tobacco Use. Due on due Goal Review Allergy List. Due on due Goal Height. Due on due Goal Medication Reconciliation. Due o n due Goal PHQ-9. Due on due Goal Update Social History. Due on Goal Tobacco Use. Due on due Goal BURLAP BAG SEWER Scanned. Due on due Goal TECHNICAL ADVISOR Paperwork. Due on due Goal Weight. Due [...] due Goal Height. Due on due Goal TECHNICAL ADVISOR Paperwork. Due on due Goal Update Social History. Due on Goal OARS. Due on due Goal AST (SGOT). Due on d ue Goal BURLAP BAG SEWER Scanned. Due on due Goal Order Annual [...] Goal Update Social History. Due on Goal BURLAP BAG SEWER Scanned. Due on due Goal PHQ-9. Due on due Goal OARS. Due on due Goal Tobacco Use. Due on due Goal TECHNICAL ADVISOR Paperwork. Due on due Goal Height. Due on due Goal Order Annual PT. Due on due Goal Tobacco cessation counseling com pleted Goal Tobacco Use. Due on due Goal AST (SGOT). Due on d ue Goal Order Annual PT. Due on due Goal BURLAP BAG SEWER Scanned. Due on due Goal Update Social History. Due on du e Goal PHQ-9. Due on due Goal ALT (SGPT). Due on d ue Goal Review Allergy List. Due on due Goal TECHNICAL ADVISOR Paperwork. Due on due Goal OARS. Due [...] due Goal Height. Due on due Goal BURLAP BAG SEWER Scanned. Due on due Goal UDT. Due on due Goal Medication Reconciliation. Due o n due Goal TECHNICAL ADVISOR Paperwork. Due on due Goal Update Social History. Due on Goal PHQ-9. Due on due Goal TECHNICAL ADVISOR Paperwork. Due on due Goal AST (SGOT). Due on d ue Goal BURLAP BAG SEWER Scanned. Due on due Goal ALT (SGPT). Due on d ue Goal UDT. Due on due Goal Weight. Due on due Goal Review Allergy List. [...] due Goal PHQ-9. Due on due Goal BURLAP BAG SEWER Scanned. Due on due Goal Tobacco Use. Due on due Goal Order Annual PT. Due on 021 due Goal UDT. Due on due Goal TECHNICAL ADVISOR Paperwork. Due on due Goal ALT (SGPT). [...] ANALYSIS , URINE, WITH Ordered MED REPORT ([id number]), Ordered on: Future Order: Lab Order Drug Test Def 22+ Classe s ([id number]), Ordered Ordered on: Future Order: Lab Order Drug Test Def 22+ Classe s ([id number]), Ordered Ordered on: Future Order: Lab Order COMPLIANCE DRUG ANALYSIS , URINE, WITH Ordered MED REPORT ([id number]), Ordered on: Future Order: Lab Order MRSA/MSSA Screening ([id number]), Ordered Ordered on: Future Order: Lab Order COMPLIANCE DRUG ANALYSIS , URINE, WITH Ordered MED REPORT ([id number]), Ordered on: History Of Present Illness Encounter [...] her L sydni ulder on 12/30/21 with [facility] in order for infection to clear. Additional [...] h er L shoulder on 12/30/21 with [facility] in order for in fection to clear. [...] to her Yomi mann on 12/30/21 with [facility] in order for infection to clear. Additional [...] her L sydni ulder on 12/30/21 with [facility] in order for infection to clear. Additional [...] to her L shoulder on 12/30/21 with [facility] in order for infection to clear. Additional [...] or hardware removal surgery on 12/30/21 with [facility] in order for infection to clear. Will [...] [facility] for infection to ca ar. [...] for hardware removal surgery in December with [facility] in order for in fection to clear. [...] med s/drugs, rest and TENS. Back Pain Duration: chronic. T [...] further questions or concerns. Back Pain (comments) Did not see patient today - no show Back Pain Duration: chronic. Back Pain (comments) Angie presents for a [...] questions or concern s. Back Pain (comments) Anige presents for a virtual follow up and [...] her daily activities. She is still interes mayr in pursuing SCS trial once Covid-19 concer [...] L side weakness -- was treated by [facility] ic. Was put on Warfarin, unsure if [...] and enroll ed in a program through [facility]. She also not es of increasing [...] con cerns Back Pain Severity level is 6. Duration: [...] is done. S he is getting the indeniro SCS. She is not intereste d in any procedure orders at the moment. No other concerns today Back Pain (comments) [...] to refill her medications. She will call [facility] if e has any questions prior [...] are effective at relieving pain wi thout SEBritton Adams's pain has been worse since las t [...] mo re headaches. She was seen by [facility] who told her she has a screw loose. She was referred to Dr. Gonzalez at [facility]. She has not heard from [...] tomorrow. She said s he will get Medora for 4-5 days maximum followi ng the [...] and states it aggrevated her pain. Medical [facility] continues to be effective for reduci ng her pain. She will be completing diagnosti c injections today through [facility]. No other concerns today. [...] #1 Oxycodone, surplus. She was [place] in [place] for her back pain. She is having an epd iural steroid injection done at [facility] tomorrow. She isn't sure how well the [...] and rest. Back Pain Severity level is mo derate-severe. [...] neck surgery. ENT referred her to an research fellow for additional evaluation. No other concerns today. [...] better. No other concerns today. Back Pain Severity level is 10 . [...] Patient completed right shou lder imaging at [facility] and reports a tear. She plans to seek Dr. Romero for righ t shoulder. Back Pain (comments) Angie is here toda y for follow up evaluation and medication refills r elating to her back pain. She has #76 oxycodone an d #6 Fentanyl remaining - on track. She did not r eceive any relief from her SABAS and is unsure wi th she will be undergoing a Cervical Fusion with [facility]. She will be following up with [facility] next week for further evaluation. She stat [...] a cervical fusion in the near f uture. She has noticed increased restlessne ss and [...] ferred by Dr. Amna Fletcher from [facility]. Angie is here today for her initial consult regarding her back, neck and knee pain which bega n years ago and has been aggrevated from [facility]. She had a lumbar fusion in the past. She also has underwent several neck surgeri es including a cervical fusion and plans to have additional surgery done by Dr. Rodriguez at [facility]. She also has a history of Gastric [...] She recently moved back [place]. No ot her concerns today. Medical records:Dr. Rodriguez at [facility] - neck surgeon Dr. Amna Fletcher a t [facility] - PCP recordsPast treatmen t:SABAS - [...] 10/27/2020. Additional hardwar e removal surgery through [facility] completed 12/30/21. Another s urgery to replace [...] implant on 07/11. 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 cod[facility] for s/p shoulder surgery pain - ok. At 58 MME. O n medical cannabis. Will consider PACT program in future.Cur rent treatment plan including SCS, home PT exercises and lcyde n medication regimen allow patient to perform [...]
--- OUTSIDE RECORDS SUMMARY | 2022-08-17 06:47 | XMS_ITS | Continuity of Care Document ---
:1965 Author Organization [employer] Address [address] [place] [address] Phone Care Team Providers Name Role Phone [...] rs Description For Visit Copied on Encounter [facility] [place] Referring [facility] Information -2007 Su. Provider : Arthur [address] [place], [address], [address] [facility], [place], [place], [place], [id number], [place], [id number], . [address]. tel:[phone] [phone] tel:[phone] [employer] [employer] [facility] Blurred No Adalberto Referring [facility] Information -2007 Deep. Provider: Arthur, (chief [address]) [address] [facility], [address], [address], [place], [place], [place], [place], [place], [place], [id number], [place], [id number], . [address]. tel:[phone] tel:[phone] tel:[phone] Family History Family Member Type Diagnosis Age [...]
--- OUTSIDE RECORDS SUMMARY | 2022-08-17 06:47 | XMS_ITS | Encounter Summary ---
:1965 Author Organization [facility] Address [facility] [place] [address] Care Team Providers Name Role Phone Clinic, [facility] Primary Care Provide r Reason for Visit Reason Comments Consult pt here with her neighbor Arin calderon, Encounter Details Date Type Department Care Team Description 05/14/2021 Office Visit - [facility] Mor Bautista Acute he matogenous [facility] Sheldon Patel MD osteomyelitis of right [address] [place] [address] shoulder reg ion (H) Street [address] [facility] 300 [address] [place], [place] [phone] [id number] Social History Tobacco Use Types Packs/Day Years [...] disease history: Reviewed in the notes from [facility]: Reviewed prior to admission meds as [...] ?? GRAM STAIN? Gram stain performed by [place], [place] ?? Specimen Collected on Tissue - [...] this duration if possible. My cell is [id number]. I wrote for 90 days and warned pt about sunburn risk. She has hx of skin cancer. 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
--- OUTSIDE RECORDS SUMMARY | 2022-08-17 06:47 | XMS_ITS | Clinical Summary ---
:1965 Author Organization [place] Address [facility] [place] [address] Care Team Providers Name Role Phone Clinic, [facility] Primary Care Provide r Allergies Active [...] breath / dyspnea or wheezing naloxone (NARCAN) [place] 4 mg into 0 Active nasal spray [...] (Takes 2 x 5000 unit tablet = 97576 unit dose) Esomeprazole Magnesium Take 40 mg [...] CDT Respiratory Rate 16 10/14/2017 4:28 PM SECURITY DEVELOPER Oxygen Saturation 98% 10/14/2017 4:28 PM SECURITY DEVELOPER Inhaled Oxygen Concentration - - Weight 74.8 [...] this topic Medical Devices Implanted Type Area Db2 Developer Device Shelf Model / Identifier Expiration Serial / Date Lot Device Tvt Obturator Laser [id number] Other N/A: [employer] 04/27/2018 [id number] / Implanted: Qty: 1 on 10/14/2017 by Rain Herring MD at [facility]- / [id number] Procedures Procedure Name Priority Date/Time Associated Comments [...] IFA with Reflex (08/10/2022 11:10 AM CDT) [facility] Method Time Signature ERYN interpretation Negative [...] Code Phon e Number SPECIALTY CORE/PROT/ENDO Specialty [place], [place] [address] Core/Prot/Endo [address] [facility], Room 3-580 Lyme Disease Total Abs Bld [...] LAB - BLOOD ORDERABLES Performing Organization Address [facility] Code Phon e Number SPECIALTY CORE/PROT/ENDO Specialty [place], [place] [address] Core/Prot/Endo 500 [facility], Room 3-580 Uric acid (08/10/2022 11:10 AM CDT) athologist Signature Uric Acid 4.8 2.0 - 7.5 08/10/2022 [facility] mg/dL 11:36 AM CDT Specimen Anatomical Collection Method / Collection Time Recei jose Time (Source) Location / Volume Laterality Blood STRUCTURE OF RIGHT Venipuncture / 08/10/2022 11:10 HAND / Unknown Unknown AM CDT 11:10 AM CDT Clemente Katz PA-C LAB - BLOOD ORDERABLES Performing Organization Address City/[facility]/ZIP Code Phon e Number [facility] [place] [address] [facility] TSH (08/10/2022 11:10 AM CDT) athologist Signature TSH 0.92 0.30 - 5.00 08/10/2022 [facility] uIU/mL 12:01 PM CDT Specimen Anatomical Collection Method / Collection Time Recei jose Time (Source) Location / Volume Laterality Blood STRUCTURE OF RIGHT Venipuncture / 08/10/2022 11:10 HAND / Unknown Unknown AM CDT 11:10 AM CDT Clemente Katz PA-C LAB - BLOOD ORDERABLES Performing Organization Address City/State/ZIP Code Phon e Number [facility] [place] [address] [address] [facility] Thyroxine total (08/10/2022 11:10 AM CDT) athologist Signature T4 Total 5.4 4.5 - 11.7 08/10/2022 [facility] ug/dL 5:57 PM CDT Specimen Anatomical Collection Method / Collection Time Recei jose Time (Source) Location / Volume Laterality Blood STRUCTURE OF RIGHT Venipuncture / 08/10/2022 11:10 HAND / Unknown Unknown AM CDT 11:10 AM CDT Clemente Katz PA-C LAB - BLOOD ORDERABLES Performing Organization Address City/[facility]/ZIP Code Phon [place] [address] Lab 500 [facility], Room 3580 T4 free (08/10/2022 11:10 AM [...] City/State/ZIP Code Phon [place] [address], Room 3-580 [...] City/State/ZIP Code Phon e Number [facility] [place] [address] Lab 500 [facility] [address], Room 3-580 Rheumatoid factor [...] e Number [facility] SPECIALTY CORE/PROT/ENDO [facility] Specialty [place], [place] [address] Core/Prot/Endo 500 [facility] [address] Building, Room 3-580 (ABNORMAL) D dimer quantitative (08/10/2022 11:10 AM CDT) [facility] gist Method Time Signature D-Dimer 1.69 (H) 0.00 - 08/10/2022 [facility] Quantitative 0.50 11:28 AM CDT ug/mL FEU Specimen Anatomical Collection Method / Collection Time Recei jose Time (Source) Location / Volume Laterality Blood STRUCTURE OF RIGHT Venipuncture / 08/10/2022 11:10 HAND / Unknown Unknown AM CDT 11:10 AM CDT Narrative [facility] - 08/10/2022 11:28 AM CDT This D-dimer assay is intended for use i n conjunction with a clinical pretest probability assessment model to exclude pulmonary embolism (PE) and deep venous thrombosis (DVT) in outpatients suspecte d of PE or DVT. The cut-off value is 0.50 ug/mL FEU. Clemente Katz PA-C LAB - BLOOD ORDERABLES Performing Organization Address City/[facility]/ZIP Code Phon e Number [facility] [place] [address] CRP inflammation (08/10/2022 11:10 AM CDT) P athologist Signature CRP 0.2 0.0 - <0.8 08/10/2022 [facility] mg/dL 11:33 AM CDT Specimen Anatomical Collection Method / Collection Time Recei jose Time (Source) Location / Volume Laterality Blood STRUCTURE OF RIGHT Venipuncture / 08/10/2022 11:10 HAND / Unknown Unknown AM CDT 11:10 AM CDT Cleemnte Katz PA-C LAB - BLOOD ORDERABLES Performing Organization Address [facility] Code Phon e Number [facility] [place] [address] WBC and Differential (08/10/2022 11:05 AM CDT) Analysis Performed At Patho logist Time Signature WBC Count 4.2 4.0 - 11.0 08/10/2022 [facility] 10e3/uL 11:16 AM CDT % Neutrophils 43 % 08/10/2022 [facility] 11:16 AM CDT % Lymphocytes 42 % 08/10/2022 [facility] 11:16 AM CDT % Monocytes 11 % 08/10/2022 [facility] 11:16 AM CDT % Eosinophils 3 % 08/10/2022 [facility] 11:16 AM CDT % Basophils 1 % 08/10/2022 [facility] 11:16 AM CDT % Immature 0 % 08/10/2022 [facility] Granulocytes 11:16 AM CDT NRBCs per 100 WBC 0 <1 /100 08/10/2022 [facility] ORY 11:16 AM CDT Absolute 1.8 1.6 - 8.3 08/10/2022 [facility] Neutrophils 10e3/uL 11:16 AM CDT Absolute 1.8 0.8 - 5.3 08/10/2022 [facility] Lymphocytes 10e3/uL 11:16 AM CDT Absolute 0.5 0.0 - 1.3 08/10/2022 [facility] Monocytes 10e3/uL 11:16 AM CDT Absolute 0.1 0.0 - 0.7 08/10/2022 [facility] Eosinophils 10e3/uL 11:16 AM CDT Absolute 0.0 0.0 - 0.2 08/10/2022 [facility] Basophils 10e3/uL 11:16 AM CDT Absolute Immature 0.0 <=0.4 08/10/2022 [facility]Y Granulocytes 10e3/uL 11:16 AM CDT Absolute NRBCs 0.0 10e3/uL 08/10/2022 [facility] 11:16 AM CDT Specimen Anatomical Collection Method / Collection Time Recei jose Time (Source) Location / Volume Laterality Blood STRUCTURE OF RIGHT Venipuncture / 08/10/2022 11:05 HAND / Unknown Unknown AM CDT 11:05 AM CDT Clemente Katz PA-C LAB - BLOOD ORDERABLES Performing Organization Address City/State/[place] [address] Erythrocyte sedimentation rate auto (08/10/2022 11:05 AM CDT) [facility] gist Method Time Signature Erythrocyte 13 0 - 20 08/10/2022 [facility] Sedimentation Rate mm/hr 11:45 AM CDT Specimen Anatomical Collection Method / Collection Time Recei jose Time (Source) Location / Volume Laterality Blood STRUCTURE OF RIGHT Venipuncture / 08/10/2022 11:05 HAND / Unknown Unknown AM CDT 11:05 AM CDT Clemente Katz PA-C LAB - BLOOD ORDERABLES Performing Organization Address City/State/[place] [address] from Last 3 Months Insurance Payer Benefit Plan / Subscriber ID Effective Dates Phone Addre ss Type Group MEDICARE MEDICARE [id number] 2012-Ariana [phone] ATTN CLA IMS Medicare nt 0 [address] [facility] [place] [address] MEDICA MEDICA ACCESS [id number] 2016-Dirk [phone] [place] [address] HMO ABILITY CA t [address] [place] [address] Care Teams Shredded Filler Cigar Maker Machine Relationship Specialty Start Date End Date Clinic, [facility] PCP - General 06/03/171999 [place] [address]
--- OUTSIDE RECORDS SUMMARY | 2022-08-17 06:47 | XMS_ITS | Encounter Summary ---
:1965 Author Organization [place] Address [address] [place] [address] Care Team Providers Name Role Phone [facility], [facility] Primary Care Provide r Encounter Details Date Type Department Care Team Description [facility] ProviderAlea Social History Tobacco [...] in this encounter Care Teams Human Resources Receptionist Relationship Specialty Start Date End Date [facility] PCP - General 06/03/171999 [place] [address] documented as of this encounter
--- OUTSIDE RECORDS SUMMARY | 2022-08-17 06:47 | XMS_ITS | Encounter Summary ---
:1965 Author Organization [place] Address [facility] [place] [address] Care Team Providers Name Role Phone [facility] Primary Care Provide r Mor Bautista [...] on filedocumented in this encounter Care Teams Garage Attendant Relationship Specialty Start Date End Date [facility] PCP - General 06/03/17 [facility] [address] [place] [address] Mor Bautista MD Assigned Infectious Disease 06/12/2106/25 [address] Provider [address] [place] [address] documented as of this encounter
--- OUTSIDE RECORDS SUMMARY | 2022-08-17 06:47 | XMS_ITS | Encounter Summary ---
:1965 Author Organization [place] Address [address] [place] [address] Care Team Providers Name Role Phone Clinic, [facility] Primary Care Provide r Reason for Visit Auth/Cert Specialty Diagnoses / Procedures Referred By Contact Refer red To Contact Surgery Diagnoses URGE AND STRESS INCONTINENCE,FEMALE STRESS INCONTINENCE Sh Periop Services Procedures CYSTOSCOPY, SLING TRANSVAGINAL [address] [place] [address] Phone: Referral ID Status Reason Start Date Expiration Date Visits Requ ested Visits Authorized [id number] 1 1 Encounter Details Date Type Department Care Team Description 10/14/2017 Hospital Encounter [facility] Sitbonnie, Mary Ann ss incontinence Shayne Rodrigez MD (Primary Dx) PreOP/Phase II [place] [address], UROLOGY [address] [facility] [address] [place] [address] [phone] Social History Tobacco Use Types Packs/Day Years Used Date Current Every Day Smoker 0.5 Smokeless Tobacco: Never Used Alcohol Use Standard Drinks/Week Comments No 0 (1 standard drink = 0.6 oz pure alcoho l) Sex Assigned at Date Recorded Not on file documented as of this encounter Last Filed Vital Signs Vital Sign Reading Time Taken Comments Blood Pressure 121/86 10/14/2017 4:28 PM CREDIT PORTFOLIO MANAGER Pulse - - Temperature 36.6 ??C (97.8 ??F) 10/14/2017 3:00 PM CREDIT PORTFOLIO MANAGER Respiratory Rate 16 10/14/2017 4:28 PM CREDIT PORTFOLIO MANAGER Oxygen Saturation 98% 10/14/2017 4:28 PM CREDIT PORTFOLIO MANAGER Inhaled Oxygen Concentration - - Weight 73.9 kg (163 lb) 10/14/2017 12:15 PM CREDIT PORTFOLIO MANAGER Height 152.4 cm (5') 10/14/2017 12:15 PM CREDIT PORTFOLIO MANAGER Body Mass Index 31.83 10/14/2017 12:15 PM CREDIT PORTFOLIO MANAGER documented in this encounter Discharge Instructions Discharge InstructionsGi King RN - 10/14/2017 1:42 PM CREDIT PORTFOLIO MANAGER Post Bladder Sling Instructions Dr Stafford [phone] ?? For pain you may take a narcotic/acetaminophen combination prescription for pain relief. The mostcommon pain is in the upper thighs. This usually lasts 2-3 days. You may use cold packs to this areaas needed to reduce pain and bruising. Generally [id number] medicines such as ibuprofen, 3-4 tablets every [...] vaginal sutures. ?? Post op appointments: Call [phone] to schedule an appointment to see your [...] menstrual period call the office. Call Dr Staffodr's office if you have: ?? A fever [...] know so they can address your concerns. IT PORTFOLIO MANAGER documented in this encounter Medications at [...] needed for muscle spasms naloxone (NARCAN) nasal [place] 4 mg into one 0 spray nostril [...] (Takes 2 x 5000 unit tablet = 22184 unit dose) ZONISAMIDE PO Take 300 mg [...] and was given a new prescription for [place]. Prescription for Oxycodone shredded. Patient took hard copy of new [place] prescription with her.; IT PORTFOLIO MANAGER Vicki Matthews RN - 10/14/2017 3:39 PM CST Patient voided, bladder scan 450cc, encouraged patient to void again. Pt voided. Bladder scan for 100-150cc. Patient comfortable and ready to go home. IT PORTFOLIO MANAGER documented in this encounter Miscellaneous Notes [...] and draped in the regular fashion. A 16-Montserratian [place] catheter was placed. Periurethral space was [...] MD MT: [id number] Name: ANGIE MOSQUERA Account: [id number] : 1965 Procedure Date: 10/14/2017 Document: [id number] cc: Rain Stafford MD IT PORTFOLIO MANAGER documented in this encounter Plan of Treatment Not on filedocumented as of this encounter Procedures Procedure Name Priority Date/Time Associated Diagnosis Comme nts CREATION, VAGINAL 10/14/2017 12:46 PM URGE AND STRESS SLING, WITH CYSTOSCOPY CREDIT PORTFOLIO MANAGER INCONTINENCE,FEMAL E STRESS INCONTINENCE LAB RESULT - HIM SCAN 10/11/2017 12:00 AM CREDIT PORTFOLIO MANAGER EKG CARDIAC - HIM SCAN 08/15/2017 12:00 AM CDT XRAY IMAGING - HIM 07/25/2017 12:00 AM SCAN CDT documented in this encounter Results LAB RESULT - HIM SCAN (10/11/2017 12:00 AM CREDIT PORTFOLIO MANAGER) Specimen (Source) Anatomical Location Collection Method [...] ciprofloxacin (CIPRO) infusion Given 10/14/2017 12:59 PM CREDIT PORTFOLIO MANAGER 400 mg 400 mg Routine, 400 mg, Intravenous, PRE-OP/PRE-PROCEDURE, Starting on Tue10/14/17 at 1155, For 1 dose, Irritant., Indications: Perioperative Pharmacoprophylaxis, Pre-procedure New Bag 10/14/2017 12:26 PM CREDIT PORTFOLIO MANAGER 400 mg fentaNYL (PF) (SUBLIMAZE) injection 25-5 0 mcg Given 10/14/2017 2:01 PM CREDIT PORTFOLIO MANAGER 50 mcg 25-50 mcg, Intravenous, EVERY [...] 100 mcg., PACU Given 10/14/2017 1:50 PM CREDIT PORTFOLIO MANAGER 50 mcg HYDROmorphone (PF) (DILAUDID) injection Given 10/14/2017 2:42 PM CREDIT PORTFOLIO MANAGER 0.5 mg 0.3-0.5 mg 0.3-0.5 mg, [...] minutes., PACU/Phase II Given 10/14/2017 2:18 PM CREDIT PORTFOLIO MANAGER 0.5 mg ondansetron (ZOFRAN) injection 4 mg Given 10/14/2017 2:18 PM CREDIT PORTFOLIO MANAGER 4 mg 4 mg, Intravenous, EVERY [...] tablet 5 mg Given 10/14/2017 2:54 PM CREDIT PORTFOLIO MANAGER 5 mg 5 mg, Oral, ONCE, On Tue10/14/17 at 1500, For 1 dose, PACU scopolamine (TRANSDERM) 72 hr Given 10/14/2017 12:43 PM CREDIT PORTFOLIO MANAGER 1 pa tch Behind Left Ear patch 1 patch 1 patch, Transdermal, EVERY 72 HOURS, First dose on Tue10/14/17 at 1245, Apply patch to skin, behind ear. Remove every 72 hours. Each 1.5 mg patch delivers 1 mg of scopolamine., Pre-procedure documented in this encounter Active and Recently Administered Medications Times are shown in CREDIT PORTFOLIO MANAGER. Scheduled Medication Order 10/12/2017 10/13/2017 10/14/2017 ciprofloxacin (CIPRO) infusion 400 mg (COMPLETED) 1226 (New Bag - Provider: Rona Hanks RN)1259 (Given - Provider: Gayatri Combs APRN FIELD SERVICE TECHNICIAN POULTRY) Routine, 400 mg, Intravenous, PRE-OP/PRE -PROCEDURE, Starting [...] RADHA) 0.3-0.5 mg, Intravenous, EVERY 10 MIN RI N, other, acute pain.?May administer if Respiratory [...] 1544 documented in this encounter Care Teams Combination Welder Relationship Specialty Start Date End Date [facility], [facility] PCP - General 06/03/171999 [place] [address] documented as of this encounter
--- OUTSIDE RECORDS SUMMARY | 2022-08-17 06:47 | XMS_ITS | Encounter Summary ---
:1965 Author Organization [place] Address [address] [place] [address] Care Team Providers Name Role Phone [facility] Primary Care Provide r Encounter [...] on filedocumented in this encounter Care Teams Deadener Relationship Specialty Start Date End Date [facility] PCP - General 06/03/171999 [place] [address] documented as of this encounter
--- OUTSIDE RECORDS SUMMARY | 2022-08-17 06:47 | XMS_ITS | Encounter Summary ---
:1965 Author Organization [place] Address [address] [facility] [address] Care Team Providers Name Role Phone Clinic, [facility] Primary Care Provide r Reason for Visit Auth/Cert Specialty Diagnoses / Procedures Referred By Contact Refer red To Contact Surgery Diagnoses URGE AND STRESS INCONTINENCE,FEMALE STRESS INCONTINENCE Sh Periop Services Procedures CYSTOSCOPY, SLING TRANSVAGINAL [address], [address] [place] [address] Phone: Referral ID Status Reason Start Date Expiration Date Visits Requ ested Visits Authorized [id number] 1 1 Encounter Details Date Type Department Care Team Description 10/14/2017 Anesthesia Event M [facility] SruthiEri rosa MD [facility] ANESTHESIA [address] [place] [id number] [facility] PeriOP Gayatri Combs, MANAGER FINE COP BREAKER [address] [place] [address] Services [address] [place] [address] Anesthesia Record Procedure Summary Procedure Name [...] Gayatri Combs, Vicki Collins D, Injectable; Tolerated COP BREAKER RN well Retired Non-Surgical 10/14/17; 1254; Easy; 10/14/17 1254 by 09/28 06/13 1328 by Airway Intravenous; 4; mm; Gayatri Combs, MANAGER FINE Gayatri Combs, laryngeal mask airway; COP BREAKER MANAGER FINE COP BREAKER midline; Equal, clear and bilateral; COP BREAKER; hh Urethral Catheter 10/14/17; 1314; No; 10/14/17 1314 by 10/14/17 1316 by /GI/TYPESETTERS PRINTER Pelvic Usha Bar, Carole Duff, Procedure; 16 [...] MD, MD October 14, 2017 1:50 PM T CONSULTANT Anesthesia Preprocedure Evaluation - Mini Negro MD [...] SURGERY ??? BACK SURGERY ??? CHOLECYSTECTOMY ??? TYPESETTERS PRINTER SURGERY ??? ORTHOPEDIC SURGERY Social History Substance [...] (Takes 2 x 5000 unit tablet = 77593 unit dose) Yes Reported, Patient Esomeprazole Magnesium [...] Yes Reported, Patient naloxone (NARCAN) nasal spray [place] 4 mg into one nostril alternating nostrils [...] Reported, Patient Current Facility-Administered Medications Ordered in [facility] Medication Dose Route Frequency Last Rate Last Dose ??? Provider ordered ALTERNATE pre op antibiotic. 1 each As instructed Continuous ??? ciprofloxacin (CIPRO) infusion 400 mg 400 mg Intravenous Pre-Op/Pre-procedure x 1 dose No current [facility]-ordered outpatient prescriptions on file. ??? Another [...] GLC, BUN, CR, ROGER in the last 70647wmvsc. No results for input(s): AST, ALT, ALKPHOS, BILITOTAL, LIPASE in the last 27414 hours. No results for input(s): WBC, HGB, PLT in the last 83915 hours. No results for input(s): ABO, RH in the last 65568 hours. No results for input(s): INR, PTT in the last 43895 hours. No results for input(s): TROPI in the last 26037 hours. No results for input(s): PH, PCO2, PO2, HCO3 in the last 32066 hours. No results for input(s): HCG in the last 98214 hours. No results found for this or any previous visit (from the past 744 hour(s)). RECENT LABS: ECG: ECHO: T CONSULTANT documented in this encounter Miscellaneous Notes Anesthesia [...] APRN CRNA October 14, 2017 1:34 PM T CONSULTANT documented in this encounter Plan of Treatment Not on filedocumented as of this encounter Visit Diagnoses Not on filedocumented in this encounter Administered Medications Inactive Administered Medications - up to 3 most recent administrations Medication Order MAR Action Action Date Dose Rate Site ciprofloxacin (CIPRO) infusion Given 10/14/2017 12:59 PM AUDIT CONSULTANT 400 mg 400 mg Routine, 400 mg, Intravenous, PRE-OP/PRE-PROCEDURE, Starting on Tue10/14/17 at 1155, For 1 dose, Irritant., Indications: Perioperative Pharmacoprophylaxis, Pre-procedure New Bag 10/14/2017 12:26 PM AUDIT CONSULTANT 400 mg dexamethasone (DECADRON) injection Given 10/14/2017 1:03 PM AUDIT CONSULTANT 4 mg PRN, Administer over 1 Minutes, Starting on Tue10/14/17 at 1303, Anesthesia Intra-op dexmedetomidine (PRECEDEX) 4 mcg/mL bolu s Bolus 10/14/2017 1:08 PM AUDIT CONSULTANT 8 mcg 200 mcg, CONTINUOUS PRN, Starting on Tue10/14/17 at 1305, Anesthesia Intra-op New Bag 10/14/2017 1:05 PM AUDIT CONSULTANT 12 mcg fentaNYL (PF) (SUBLIMAZE) injection Given 10/14/2017 12:52 PM AUDIT CONSULTANT 100 mcg PRN, moderate to severe pain, Administer over 3-5 Minutes, Starting on Tue10/14/17 at 1252, Anesthesia Intra-op lactated ringers infusion New Bag 10/14/2017 12:51 PM AUDIT CONSULTANT Intravenous, CONTINUOUS PRN, Anesthesia Intra-op, Starting on Tue10/14/17 at 1251, Until Tue10/14/17 at 1334 lidocaine injection 2% (MDV) Given 10/14/2017 12:52 PM AUDIT CONSULTANT 80 mg PRN, Starting on Tue10/14/17 at 1252, Anesthesia Intra-op midazolam (VERSED) injection Given 10/14/2017 12:51 PM AUDIT CONSULTANT 2 mg Administer over 2 Minutes, PRN, anxiety, Starting on Tue10/14/17 at 1251, Anesthesia Intra-op ondansetron (ZOFRAN) injection Given 10/14/2017 1:03 PM AUDIT CONSULTANT 4 mg PRN, nausea, vomiting, Administer over 2-5 Minutes, Starting on Tue10/14/17 at 1303, Anesthesia Intra-op propofol (DIPRIVAN) infusion Rate/Dose 10/14/2017 1:14 150 mcg/kg/min 66.5 mL/hr Intravenous, CONTINUOUS PRN, Change PM AUDIT CONSULTANT Starting on Tue10/14/17 at 1252, Anesthesia Intra-op New Bag 10/14/2017 12:52 PM AUDIT CONSULTANT 200 mcg/kg/min 88.7 mL/hr propofol (DIPRIVAN) injection 10 mg/mL v ial Given 10/14/2017 1:06 PM AUDIT CONSULTANT 50 mg PRN, Starting on Tue10/14/17 at 1252, Anesthesia Intra-op Given 10/14/2017 12:52 PM AUDIT CONSULTANT 150 mg documented in this encounter Care Teams Rescue Boat Operator Relationship Specialty Start Date End Date Clinic, [facility] PCP - General 06/03/171999 [place] [address] documented as of this encounter
--- OUTSIDE RECORDS SUMMARY | 2022-08-17 06:47 | XMS_ITS | Encounter Summary ---
:1965 Author Organization [place] Address [address] [place] [address] Care Team Providers Name Role Phone [facility] Primary Care Provide r Encounter [...] filedocumented in this encounter Care Teams Auto Body Repairer Relationship Specialty Start Date End Date [facility] PCP - General 06/03/171999 [place] [address] documented as of this encounter
--- OUTSIDE RECORDS SUMMARY | 2022-08-17 06:48 | XMS_ITS | Encounter Summary ---
:1965 Author Organization [place] Address [facility] [place] [address] Care Team Providers Name Role Phone Clinic, [facility] Primary Care Provide r Reason for Visit Reason Comments Back Pain Neck Pain Encounter Details Date Type Department Care Team Description 06/03/2017 Emergency [facility] Heggestad, Zoey Acute mi dline low back pain, with sciatica presence unspecified; [facility] Emergency Dep phuong Flowers PA-C Chronic neck pain [address] [facility] EMERGENCY PHYSICIANS [place], [place] [address] [address] [facility] [phone] [place], [place] [address] (Wo rk) Social History [...] that she received adequate care at the [facility] hospitals that she has been too. Pt reports that she left [facility] yesterday after they did not address her issues. Pt states that she would like something to take her painaway and upset that has not been receiving adequate pain control. SW explained that this law writer could not provide pt with pain [...] Evans RN - 06/03/2017 3:41 PM CDT animal care service worker is talking with patient per patient [...] pain in her sternum.She was seen at [place] and evaluated for neck pain but left [...] and that she is seeing doctors at [facility] for evaluation. She reports that most of [...] 6 months ago when she ran into [place]. She states that she called her pain management center, [facility], and that they [...] a history of chronic pain who sees [facility] for her prescription [...] son tells me that they went to [place] emergency room and they told the nurse that they went to [place] emergency room as well in the past few days but nobody did anything or me. Here, the patient notes that hardware in her C-spine has loosened and she is scheduled to see [facility] physician to possibly [...] patient and her son that per our [facility] pain policy she could have a dose of pain medication here orally but we were not doing IM or IV and she would not get a prescription to go home with. During the work-up, I was unaware that the patient requested to see social work and social work came down to see them and came to talk to me. The rn social services states that the patient wanted to complain about our care to her but she had no complaints of social issues at home. animal care service worker referred her back to me. I [...] I did also speak to a P.A. project control manager for [facility], [place], who [...] observations and the provider's statements to me. [facility] Zoey López PA-C 06/03/17 1738 [...] Region Laterality Modality Spine, SUBRAD CT MSK, [facility] CT SPINE Compu mary Tomography Specimen [...] dose documented in this encounter Care Teams Multiple Games Dealer Relationship Specialty Start Date End Date [facility] PCP - General 06/03/171999 [place] [address] documented as of this encounter
--- OUTSIDE RECORDS SUMMARY | 2022-08-17 06:48 | XMS_ITS | Encounter Summary ---
:1965 Author Organization [facility] Address [address], [place] [address] Care Team Providers Name Role Phone Jose Holden MD Primary Care Provider [phone] Reason for Visit Reason Comments APPOINTMENT REQUEST Encounter Details Date Type Department Care Team Description 11/13/2018 Telephone [facility] Pete Gonzalez MD APPOINTMENT REQUEST [facility] [address] [place], [place] [address]E Neurosurgery/Ortho [address] [place], [place] [address] [place] [address] [place] [address] [phone] Social History Tobacco Use Types Packs/Day Years [...] Jana Marcos - 11/16/2018 3:46 PM CST Glue Cook spoke to the pt and helped schedule an appt with Dr. Gonzalez on 12/26/17 at 1:40PM. Pt was in agreement of date, time and location. Jana Marcos 11/16/2018, 3:46 PM BAR DRIVER Chava Simon RN - 11/16/2018 1:15 PM CST Per Sirisha Rolandson Gunnar, CLINICAL TRIALS MANAGER: patient can follow up with Dr. Gonzalez with repeat upright cervical XRs. Rachid: please call patient and assist in scheduling her for an appointment with Dr. Gonzalez at next available with XR hCava Simon RN 11/16/2018, 1:20 PM BAR DRIVER Chava Simon RN - 11/16/2018 11:15 AM [...] Walker RN - 11/15/2018 11:21 AM CST [facility]- still have not received CD from [place]. If patient calls back, please let her [...] plan? Chava Simon RN 11/13/2018, 9:12 AM BAR DRIVER Michael Cruz - 11/13/2018 8:23 AM CST Patient called in requesting for an appointment with Dr. Gonzalez himself only and not APPs. She states she fell on ice last week 11/09/18 and went to [facility] to be evaluated. She reports the [...] Gonzalez to ensure everything is well as [place] is not theones who did surgery on her and cannot compare this to before and after surgery. Glue Cook called [facility] and spoke with Mandy in the film room. They are not able to push imaging but they can send a CD. Address was provided for her of mail stop [id number] [facility] Attn: Dr. Gonzalez. She states the report will also be included in the CD. She then transferred me to Medical Records. Glue Cook spoke with Shauna who states patient will need to sign an CODI to obtain ED note from 11/09/18 to be sent to us as they are not affiliated with [employer] system. Glue Cook reached patient and relayed she would need [...] being sent. Michael Cruz 11/13/2018, 8:43 AM BAR DRIVER documented in this encounter Plan of Treatment Not on filedocumented as of this encounter Visit Diagnoses Diagnosis S/P cervical spinal fusion - Primary Arthrodesis status documented in this encounter Care Teams Postal Inspector Relationship Specialty Start Date End Date Jose Holden MD PCP - General Otolaryngology 12/14/17 [place] [address] documented as of this encounter
--- OUTSIDE RECORDS SUMMARY | 2022-08-17 06:48 | XMS_ITS | Encounter Summary ---
:1965 Author [facility] Address [address] [place] [address] Care Team Providers Name Role Phone Jose Holden MD Primary Care Provider [phone] Reason for Referral Procedure/Equipment (Routine) - Closed Specialty Diagnoses / Procedures Referred By Contact Refer red To Contact Diagnoses Dizziness Concussion with loss of consciousness of 30 minutes or less, subsequent encounter Alyse Carias, PT [address] [place] [address] Referral ID Status Reason Start Date Expiration Date Visits Requ ested Visits Authorized [id number] Closed 03/06/2019 06/04/2020 20 20 Scheduling Instructions . Reason for Visit Reason Comments Concussion Therapies (Routine) - Closed Specialty Diagnoses / Procedures Referred By Contact Refer red To Contact Diagnoses Impairment of balance Dizziness Blanka Mead, LIFE SCIENCE TECHNICIAN, CN P [address] [place] [address] Referral ID Status Reason Start Date Expiration Date Visits Requ ested Visits Authorized [id number] Closed 02/16/2019 04/17/2019 1 1 Encounter Details Date Type Department Care Team Description 03/06/2019 Office Visit Alyse Bee Dizziness (Primary Dx); [facility] A, PT Concussion with loss of consciousness of 30 minutes or less, subsequent encounter Physical Therapy [address] [place] [address] [phone] Social History Tobacco Use Types Packs/Day Years [...] impacting her status (scheduled for surgery at [place] on 02/28/19). Tinnitus- scheduled for hearing assessment [...] ER right away. She was seen at [facility]. ?? She has a past medical history [...] limited function due to PMH Lives in [place]. Independent with ADLs, driving. Current Level of Function: Currently not-employed. Lives alone in apartment. Difficulty bending down She does endorse LOS in home setting. Previous Therapy for This Condition: PT for neck (01/23/19- refaxed orders) Patient Goals: Return to previous level of function and Increased function OBJECTIVE Posture/Observations: alert, oriented, cooperative. forward head posturing. Carrying multiple bags and able to pick remover from floor to chair without LOS. Functional [...] within her allowable cervical ROM). Access Code: [email or web address] URL: [email or web address] Date: 03/06/2019 Prepared by: Alyse Carias Exercises Standing Gaze Stabilization with Head Rotation - 1-3 reps - 30-40 seconds - 3x daily - 7x weekly Education regarding Rule of 2 -Discussed option of closer location to her home yet noted she would be able to attend at [facility]. Patient's Response to Therapy: Good [...] encounter documented in this encounter Care Teams Photoengraver Apprentice Relationship Specialty Start Date End Date Jose Holden MD PCP - General Otolaryngology 12/14/17 [facility] [place] [address] documented as of this encounter
--- OUTSIDE RECORDS SUMMARY | 2022-08-17 06:48 | XMS_ITS | Encounter Summary ---
:1965 Author Organization [facility] Address [address], [place] [address] Care Team Providers Name Role Phone Jose Holden MD Primary Care Provider [phone] Reason for Visit Reason Comments Forms Encounter Details Date Type Department Care Team Description 07/11/2018 Telephone [facility] Pete Gonzalez MD Forms Center Neurosurgery/Ortho [address] [facility] Sp[facility] [place], [place] [address] [address] [place] [address] [phone] Social History Tobacco Use Types Packs/Day Years [...] on filedocumented in this encounter Care Teams Ict Account Manager Relationship Specialty Start Date End Date Jose Holden MD PCP - General Otolaryngology 12/14/17 [place] [address] documented as of this encounter
--- OUTSIDE RECORDS SUMMARY | 2022-08-17 06:48 | XMS_ITS | Encounter Summary ---
:1965 Author Organization [facility] Address [address] [place] [address] Care Team Providers Name Role Phone Jose Holden MD Primary Care Provider [phone] Encounter Details Date Type Department Care Team Description 04/09/2019 Notes/Orders [facility] Neuroscience Jose Carias, Center Varnisher Plasticoater apy PT [address] [place] [address] [place] [address] [phone] (Wo rk) Social History Tobacco Use Types [...] CDT PHYSICAL THERAPY DISCHARGE NOTE Angie Mosquera [id number] Payor: MEDICARE / Plan: MEDICARE / Product [...] on filedocumented in this encounter Care Teams Dental Equipment Repairer Relationship Specialty Start Date End Date Jose Holden MD PCP - General Otolaryngology 12/14/17 [place] [address] documented as of this encounter
--- OUTSIDE RECORDS SUMMARY | 2022-08-17 06:48 | XMS_ITS | Encounter Summary ---
:1965 Author Organization [place] Address [address] [place] [address] Care Team Providers Name Role Phone Amna Fletcher Primary Care Provider Reason for Visit Reason Comments Chest Wall Pain Encounter Details Date Type Department Care Team Description [facility]2016 [facility], [facility]; [facility] Emergency [facility] phuong Ross MD Closed fracture of rib of right side, in itial encounter [address] [facility] EMERGENCY [place] [address] [address] [facility] [address] [place] [address] (Wo rk) Social History Tobacco Use Types [...] your healthcare provider ?? Congested cough ?? [phone] [employer]. [address] [place] [address]. All rights reserved. This information is not intended as a substitute for professional medical care. Always follow your healthcare professional's instructions. AttachmentsThe following attachments cannot be sent through Care Everywhere.BONE BRUISE (BONE CONTUSION), UNDERSTANDING (SINHALA)documented in this encounter Medications at Time of [...] surgery Bilateral knee arthroplasty Gastric bypass Cholecystectomy Electronic News Gathering Camera Person surgery Family History: History reviewed. No pertinent [...] Department Course ECG (01:17:19): Rate 69 bpm. NM interval 176. QRS duration 94. QT/QTc 408/437. [...] hours for 10 days Adrian Vera 07/18/2016 [facility] EMERGENCY DEPARTMENT IAdrian am serving as a scribe at 1:03 AM on 07/18/2016 to document services personally performed by Radha Espana MD based on my observations and the provider's statements to me. Radha Espana MD 07/18/16 0184 Renea Conn, RADHA - 07/18/2016 12:48 AM [...] EKG 12 lead (07/18/2016 1:17 AM CDT) [facility] gist Method Time Signature Interpretation ECG [...] 1 mg (COMPLETED) 021 (Given - Provider: Myehsa Lewis, RADHA) 1 mg, Intramuscular, ONCE, 1 [...] dose documented in this encounter Care Teams Solar System Installer Relationship Specialty Start Date End Date Amna Fletcher PCP - General 07/18/16 05/16/17 [facility] [address] [place] [address] documented as of this encounter
--- OUTSIDE RECORDS SUMMARY | 2022-08-17 06:48 | XMS_ITS | Encounter Summary ---
:1965 Author Organization [facility] Address [address] [address] Care Team Providers Name Role Phone Jose Holden MD Primary Care Provider [phone] Reason for Visit Reason Comments Revisit Bilateral cervical/thoracic trigger point injections Encounter Details Date Type Department Care Team Description 08/14/2018 Office Visit [facility] occipital neuralgia (Primary Dx); [facility] Pain RMD Myalgia; Management [address] H/O cervical spinal arthrodesis [address] [place] [address] [phone] Social History Tobacco Use Types Packs/Day Years [...] Pittman MD - 08/14/2018 3:00 PM CDT [facility] Follow-up Visit 08/14/2018 Interim [...] mg Q6H - Prescribes by [facility], has been taking for [...] pain clinic in the past. [facility] physical therapy: Past Acupuncture: [...] anterior cervical fusion 2017 Dr. Ihsan Brooke, [facility] past [...] ??? medical cannabis patient certified Take 1 [place] by mouth . ??? naloxone (NARCAN) 4 [...] Gain No facility-administered medications prior to visit. [place] and [place] Prescription Monitoring Program reviewed Allergies: [...] in her mother. Social history:she lives in [place], [place].she is not currently working. Smokin/2 ppd. [...] of occipital nerve block today Barriers: 1. [facility] opioid use Plan: 1. Patient education: I [...] MD Pain Medicine [facility] Pain Management [...] status documented in this encounter Care Teams Business Director Relationship Specialty Start Date End Date Jose Holden MD PCP - General Otolaryngology 12/14/17 [facility] [place] [address] documented as of this encounter
--- OUTSIDE RECORDS SUMMARY | 2022-08-17 06:48 | XMS_ITS | Encounter Summary ---
:1965 Author Organization [place] Address [address] [place] [address] Care Team Providers Name Role Phone Unavailable Primary Care Provider Unavailable Encounter Details Date Type Department Care Team Description 07/29/2011 Emergency room [facility] EMERGENCY NURY CISNEROS Results [address] [place], [place] [address] Social History Tobacco Use Types Packs/Day Years Used Date Never Assessed Sex Assigned at Date Recorded Not on file documented as of this encounter Progress Notes Interface, Surfacing Machine Operator - 07/31/2011 10:23 AM CDT FINAL Chief [...] she recently came to the area from [place] to visit her father (approximately two weeks [...] with a friend. The patient resides in [place], and is here in the [facility] area visiting her father. The patient states that she has been smoking one pack of cigarettes per day since 1973. Her primary care physician is Dr. Holley De La Rosa in [place], [place]. \n Her chronic pain doctor is Dr. Garcia at [facility] in [place]. - Is negative for Illicit drug use, [...] MT: JOSÉ MIGUEL Name: KAYLIN MOSQUERA Account: [id number] : 1965 Visit Date: 07/29/2011 Document: [id number] documented in this encounter Plan of Treatment Not on filedocumented as of this encounter Visit Diagnoses Not on filedocumented in this encounter
--- OUTSIDE RECORDS SUMMARY | 2022-08-17 06:48 | XMS_ITS | Encounter Summary ---
:1965 Author [facility] Address [address], [place] [address] Care Team Providers Name Role Phone Jose Holden MD Primary Care Provider [phone] Reason for Visit Reason Comments Injection Encounter Details Date Type Department Care Team Description 09/04/2018 Telephone [facility] Pete Gonzalez MD Injection Center Neurosurgery/Ortho [address] [facility] Spine [place], [place] [address] [address] [place] [address] [phone] Social History Tobacco Use Types Packs/Day Years [...] 09/05/2018 10:13 AM CDT Per Sirisha Maher, KICKING MACHINE OPERATOR: cannot write letter. Okay for repeat bilateral [...] Cervicalgia documented in this encounter Care Teams Soaker Hides Relationship Specialty Start Date End Date Jose Holden MD PCP - General Otolaryngology 12/14/17 [place] [address] documented as of this encounter
--- OUTSIDE RECORDS SUMMARY | 2022-08-17 06:48 | XMS_ITS | Encounter Summary ---
:1965 Author Organization [facility] Address [address] [address] Care Team Providers Name Role Phone Jose Holden MD Primary Care Provider [phone] Encounter Details Date Type Department Care Team Description 11/10/2018 Orders Only External to Pete Tamayo MD [address] [place], [place] [address] (Wo rk) Social History Tobacco Use Types [...] 11/10/2018 12:00 AM R esults for this [facility] procedure are i n the results section. documented in this encounter Results CT SCAN SPINE--SCAN (11/10/2018 12:00 AM [facility]) Anatomical Region Laterality Modality Other Specimen (Source) Anatomical Location Collection Method / Collectio n Time Received Time / Laterality Volume 11/10/2018 Narrative This result has an attachment that is no t available. Pete Gonzalez MD DUMMY/OTHER/AR documented in this encounter Visit Diagnoses Not on filedocumented in this encounter Care Teams Director Retirement Relationship Specialty Start Date End Date Jose Holden MD PCP - General Otolaryngology 12/14/17 [address] [place] [address] documented as of this encounter
--- OUTSIDE RECORDS SUMMARY | 2022-08-17 06:48 | XMS_ITS | Encounter Summary ---
:1965 [facility] Address [address] [place] [address] Care Team Providers Name Role Phone Jose Holden MD Primary Care Provider [phone] Encounter Details Date Type Department Care Team [...] HEAD 11/10/2018 12:00 AM Results for this LABORER/GRADE CHECK procedure are i n the results section . documented in this encounter Results CT HEAD (11/10/2018 12:00 AM LABORER/GRADE CHECK) Anatomical Region Laterality Modality Other Specimen (Source) Anatomical Location Collection Method / Collectio n Time Received Time / Laterality Volume 11/10/2018 Narrative This result has an attachment that is no t available. Phy No Primary/Referring DUMMY/OTHER/AR documented in this encounter Visit Diagnoses Not on filedocumented in this encounter Care Teams High School Coordinator Relationship Specialty Start Date End Date Jose Holden MD PCP - General Otolaryngology 12/14/17 [place] [address] documented as of this encounter
--- OUTSIDE RECORDS SUMMARY | 2022-08-17 06:48 | XMS_ITS | Encounter Summary ---
:1965 Author [facility] Address [address], [place] [address] Care Team Providers Name Role Phone Jose Holden MD Primary Care Provider Reason for Visit Reason Comments Revisit trigger point injections/occ ipital nerve blocks Encounter Details Date Type Department Care Team Description 03/06/2019 Office Visit [facility]man, Bilateral occ ipital neuralgia (Primary Dx); [facility] Myalgia; Pain Management [address] Cervical vertebral fusion; [address] [place], [place] Spondylosis of cervical princess on [place] [address] [phone] Social History Tobacco Use Types Packs/Day Years [...] treatment plan is, please contact me via [employer] online messaging or call the office at and ask to speak to a nurse. Tony Pittman MD Pain Medicine documented in this encounter Progress Notes Tony Pittman MD - 03/06/2019 2:45 PM CDT [facility] Follow-up Visit 03/06/2019 [...] Oxycodone 5 mg Q6H - Prescribes by [facility], has been taking [...] at a pain clinic in the past. [facility] physical therapy: Past [...] anterior cervical fusion 2016 Dr. Ihsan Brooke, [facility] past surgical history reviewed with patient. Medications: [...] ??? medical cannabis patient certified Take 1 [place] by mouth . ??? naloxone (NARCAN) 4 [...] facility-administered medications prior to visit. [place] and [place] Prescription Monitoring Program reviewed Allergies: Allergies Allergen [...] in her mother. Social history:she lives in [place], [place].she is not currently working. Smokin/2 ppd. [...] limited. Significant posterior surgical deformity of neck. Community Relations Coordinator to palpation bilateral levator scapulae, splenius, trapezius [...] Medicine Physical Medicine and Rehabilitation [facility] Pain Management This note created [...] myelopathy documented in this encounter Care Teams Document Control Manager Relationship Specialty Start Date End Date Jose Holden MD PCP - General Otolaryngology 12/14/[address] [place] [address] documented as of this encounter
--- OUTSIDE RECORDS SUMMARY | 2022-08-17 06:48 | XMS_ITS | Encounter Summary ---
:1965 Author Organization [place] Address [facility] [place] [address] Care Team Providers Name Role Phone Clinic, [place] Primary Care Provider [phone] Reason for Visit Reason Comments Fall Encounter Details Date Type Department Care Team Description 05/17/2017 Emergency [facility] Jose Guadalupe Betancourt MD Acute neck pain; [facility] Emergency Dep t EMERGENCY PHYSICIANS Shoulder strain, unspecified laterality, initial encounter [address] [place], [place] [address] [employer] [phone] [place] [address] [place], [place] [phone] (Wo rk) Social History Tobacco Use Types [...] contain Tylenol?? (acetaminophen), including Vicodin??, Tylenol #3??, [place]??, Lortab??, and Percocet??. You should not take [...] contain Tylenol?? (acetaminophen), including Vicodin??, Tylenol #3??, [place]??, Lortab??, and Percocet??. 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 [...] I spoke with Dr. Davis of the [facility] regarding patient's presentation, findings, [...] and the provider's statements to me. 05/17/2017 [facility] EMERGENCY DEPARTMENT Jose Guadalupe Betancourt MD [...] NAZANIN MCCORMACK MD Jose Guadalupe Betancourt MD [facility] ORDERABLES documented in this encounter Visit [...] grams documented in this encounter Care Teams Upholstered Goods Crafter Relationship Specialty Start Date End Date [facility], [facility] PCP - General 05/17/17 06/02/17 [address] [place] [address] documented as of this encounter
--- OUTSIDE RECORDS SUMMARY | 2022-08-17 06:48 | XMS_ITS | Encounter Summary ---
:1965 Author Organization [facility] Address [address] [place] [address] Care Team Providers Name Role Phone Jose Holden MD Primary Care Provider [phone] Reason for Referral Consult/Transfer Care (Routine) - Closed Specialty Diagnoses / Procedures Referred By Contact Refer red To Contact Diagnoses Traumatic brain injury, without loss of consciousness, initial encounter (HRC) Tony Pittman MD [address] [place] [address] Referral ID Status Reason Start Date Expiration Date Visits Requ ested Visits Authorized [id number] Closed 12/26/2018 03/26/2020 1 1 Scheduling Instructions Your provider has [facility] an [facility]. You may call to schedule your appointment. If you prefer, a materials scheduler will contact [facility] the next 3 business days to assist you in setting up this appointment. ODYNAMICS TEACHER Reason for Visit Reason Comments Revisit Bilateral cervical/thoracic trigger point injections Encounter Details Date Type Department Care Team Description 12/26/2018 Office Visit Tony Huggins occipital neuralgia (Primary Dx); [facility] Pain RMD Myalgia; Management [address] H/O cervical spinal arthrodesis; [address] [place], [place] Traumatic brain injury, with out loss of consciousness, initial encounter (HRC) [place] [phone] Social History Tobacco Use Types Packs/Day Years [...] Comments Blood Pressure 115/72 12/26/2018 2:48 PM HYDRODYNAMICS TEACHER Pulse 70 12/26/2018 2:48 PM HYDRODYNAMICS TEACHER Temperature - - Respiratory Rate - - [...] treatment plan is, please contact me via Meet You online messaging or call the office at and ask to speak to a nurse. Tony Pittman MD Pain Medicine ODYNAMICS TEACHER documented in this encounter Progress Notes Tony Pittman MD - 12/26/2018 2:15 PM CST [facility] Follow-up Visit 08/14/2018 [...] Patient continues to get chronic oxycodone from [facility] in [place] and does not planon decreasing her dosage. [...] Oxycodone 5 mg Q6H - Prescribes by [facility], has been taking for many [...] at a pain clinic in the past. [facility] physical therapy: Past Acupuncture: None [...] fusion 2016 Dr. Ihsan Brooke, [facility] past surgical [...] ??? medical cannabis patient certified Take 1 [place] by mouth . ??? naloxone (NARCAN) 4 [...] facility-administered medications prior to visit. [place] and [place] Prescription Monitoring Program reviewed Allergies: Allergies Allergen [...] in her mother. Social history:she lives in [place], [place].she is not currently working. Smokin/2 ppd. [...] to traumatic brain injury clinic. 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 Patient education: I [...] MD Pain Medicine Physical Medicine and Rehabilitation [facility] Pain Management This document serves as a record of services personally performed by Tony Pittman MD. It was created on his behalf by Gillian Harding, a trained medical bill processor. The creation of this record is based on the scribe's personal observations and the provider's statements to her. The document has been checked and approved by the attending provider. ODYNAMICS TEACHER documented in this encounter Plan of Treatment Scheduled Referrals Name Type Priority Associated Diagnoses Order [facility] Referral Routine Traumatic brain injury, with out loss Ordered: 12/26/2018 of consciousness, initial en counter (HRC) documented as of this encounter Visit Diagnoses Diagnosis Bilateral occipital neuralgia - Primary Myalgia Mylagia and myositis, unspecified H/O cervical spinal arthrodesis Arthrodesis status Traumatic brain injury, without loss of consciousness, initial encounter (HRC) documented in this encounter Care Teams Hydrodynamics Teacher Relationship Specialty Start Date End Date Jose Holden MD PCP - General Otolaryngology 12/14/[address] [place] [address] documented as of this encounter
--- OUTSIDE RECORDS SUMMARY | 2022-08-17 06:48 | XMS_ITS | Encounter Summary ---
:1965 [facility] Address [address], [place] [address] Care Team Providers Name Role Phone Jose Holden MD Primary Care Provider [phone] Encounter Details Date Type Department Care Team Description 11/10/2018 Emergency Room External to External, Provid er FALL/HEADACHE NECK LT No address [place] [address] Social History Tobacco Use Types Packs/Day Years [...] on filedocumented in this encounter Care Teams Needle Polisher Relationship Specialty Start Date End Date Jose Holden MD PCP - General Otolaryngology 12/14/17 [place] [address] documented as of this encounter
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
--- OUTSIDE RECORDS SUMMARY | 2022-08-17 06:48 | XMS_ITS | Encounter Summary ---
:1965 Author Organization [place] Address [address] [facility] [place] [address] Care Team Providers Name Role Phone Unavailable Primary Care Provider Unavailable Encounter Details Date Type Department Care Team Description 04/15/2009 Results Only [facility] Evelio Munoz MD Hospital Results [address] [place] [phone] (Wo rk) Social History Tobacco Use Types [...] MD SPECIAL IMAGING STUDIES Performing Organization Address City/[facility] Code Phon e [...] IMAGING STUDIES Performing Organization Address [facility] Code Phon e Number RADIOLOGY RESULTS documented in this encounter Visit Diagnoses Not on filedocumented in this encounter
--- OUTSIDE RECORDS SUMMARY | 2022-08-17 06:48 | XMS_ITS | Encounter Summary ---
:1965 Author Organization [facility] Address [address] [place] [address] Care Team Providers Name Role Phone Jose Holden MD Primary Care Provider [phone] Encounter Details Date Type Department Care Team Description 03/06/2019 Consent for [facility] Procedure/Treat [facility] Tony Alvarado MD [facility] Management [address] TREATMENT [address] [place] [phone] Social History Tobacco Use Types Packs/Day Years [...] filedocumented in this encounter Care Teams Senior Principal Relationship Specialty Start Date End Date Jose Holden MD PCP - General Otolaryngology 12/14/[address] [place] [address] documented as of this encounter
--- OUTSIDE RECORDS SUMMARY | 2022-08-17 06:48 | XMS_ITS | Encounter Summary ---
:1965 Author Organization [facility] Address [address] [address] Care Team Providers Name Role Phone Jose Holden MD Primary Care Provider [phone] Reason for Visit Procedure/Equipment (Routine) - Incomplete Specialty Diagnoses / Procedures Referred By Contact Refer red To Contact Diagnoses S/P cervical spinal fusion Sirisha Rankin, Procedures XR Cervical Spine AP/Lat Upright AUTOMATIC DEVELOPER, DRAWING FRAME TENDER [address] [place] [address] Referral ID Status Reason Start Date Expiration Date Visits V isits Requested Authorized [id number] Incomplete 10/10/2018 01/09/2020 1 1 Encounter Details Date Type Department Care Team Description 12/26/2018 Ancillary [facility] Sneha Maher, S/P cervi france Procedure [facility] Sirisha Celaya, AUTOMATIC DEVELOPER, spinal fusion Radiology DRAWING FRAME TENDER [address] [place] [address] [place], [place] [phone] [facility] Social History Tobacco Use Types Packs/Day [...] spin al Results for this AP/LAT UPRIGHT PUNCH FINISHER fusion procedure are in the results section. documented in this encounter Results XR Cervical Spine AP/Lat Upright (12/26/2018 1:44 PM PUNCH FINISHER) Anatomical Region Laterality Modality Spine, C-Spine, Neck Computed Radiograph y Specimen (Source) Anatomical Collection Method Collection Time Re ceived Time Location / / Volume Laterality 12/26/2018 1:44 PM PUNCH FINISHER Narrative 12/26/2018 3:41 PM PUNCH FINISHER EXAM: XR CERVICAL SPINE AP/LAT UPRIGHT LOCATION: [facility] DATE/TIME: 12/26/2018 1:44 PM INDICATION: Follow-up [...] EXAM: XR CERVICAL SPINE AP/LAT UPRIGHT LOCATION: [facility] DATE/TIME: 12/26/2018 1:44 PM INDICATION: Follow-up [...] C1-2 level on lateral view. Sirisha Maher AUTOMATIC DEVELOPER, DRAWING FRAME TENDER RAD GD documented in this encounter Visit Diagnoses Diagnosis S/P cervical spinal fusion Arthrodesis status documented in this encounter Care Teams Film Writer Relationship Specialty Start Date End Date Jose Holden MD PCP - General Otolaryngology 12/14/17 [place] [address] documented as of this encounter
--- OUTSIDE RECORDS SUMMARY | 2022-08-17 06:48 | XMS_ITS | Encounter Summary ---
:1965 Author Organization [place] Address [facility] [place] [address] Care Team Providers Name Role Phone Unavailable Primary Care Provider Unavailable Encounter Details Date Type Department Care Team Description 07/29/2011 Historic Notes INTERFACED REPORT Interface, Transcript onMD Social History Tobacco Use Types Packs/Day Years Used Date Never Assessed Sex Assigned at Date Recorded Not on file documented as of this encounter Progress Notes Interface, Manager Research And Development - 08/30/2011 5:48 PM CDT Allergies ?? [...]
--- OUTSIDE RECORDS SUMMARY | 2022-08-17 06:48 | XMS_ITS | Encounter Summary ---
:1965 Author Organization [place] Address [address] [facility] [place] [address] Care Team Providers Name Role Phone Unavailable Primary Care Provider Unavailable Encounter Details Date Type Department Care Team Description 04/15/2009 Emergency room [facility] Evelio Lamar MD Hospital Results [address] [place] [phone] (Wo rk) Social History Tobacco Use Types [...] She states that her pain clinic in [place] gave her new prescriptions to be filled [...] pain. SOCIAL HISTORY: The patient lives in [place]. Her primary care physician is Dr. Holley De La Rosa in [place], [place]. Her chronic pain doctor is Dr. Garcia at [facility] in [place]. Thepatient has had previous cervical and lumbar [...] I did speak with Dr. Torres the [facility] who review her records with [...] Compazine. I gave her referral information for [facility] if she has further problems while she was in [place]. She plans to be here another 1-2 weeks. DISCHARGE DIAGNOSES: 1. Acute exacerbation of chronic back pains. 2. Nausea. Electronically signed on 05/01/2009 06:49 by EEVLIO LAMAR MD MT: [id number] Name: KAYLIN MOSQUERA MRN: [id number] Account: [id number] : 1965 Visit Date: 04/15/2009 Document: [id number] cc: Oc De La Rosa MD documented in this encounter Plan of Treatment Not on filedocumented as of this encounter Visit Diagnoses Not on filedocumented in this encounter
--- OUTSIDE RECORDS SUMMARY | 2022-08-17 06:48 | XMS_ITS | Encounter Summary ---
:1965 Author Organization [facility] Address [address] [place] [address] Care Team Providers Name Role Phone Jose Holden MD Primary Care Provider [phone] Encounter Details Date Type Department Care Team Description 02/06/2019 Consent for [facility] Procedure/Treatm [facility] Tony Alvarado MD FOR [place]/PROCEDURE ent Pain Management [address] [place] [phone] Social History Tobacco Use Types Packs/Day Years [...] on filedocumented in this encounter Care Teams Out Of Town Collection Clerk Relationship Specialty Start Date End Date Jose Holden MD PCP - General Otolaryngology 12/14/[address] [place], [place] [phone] documented as of this encounter
--- OUTSIDE RECORDS SUMMARY | 2022-08-17 06:48 | XMS_ITS | Encounter Summary ---
:1965 [facility] Address [address] [place] [address] Care Team Providers Name Role Phone Jose Holden MD Primary Care Provider [phone] Reason for Referral Therapies (Routine) - Closed Specialty Diagnoses / Procedures Referred By Contact Refer red To Contact Diagnoses S/P cervical spinal fusion Pete Gonzalez MD [facility] [address] [place] [address] Referral ID Status Reason Start Date Expiration Date Visits Requ ested Visits Authorized [id number] Closed 12/26/2018 02/24/2019 1 1 Scheduling Instructions Your provider has recommended an appoint ment with a [facility] Physical Therapist. Please stop at the clinic check out desk for assistance with scheduling or if you prefer to call for your appointment you may call [facility] Outpatient Rehabilitation at [phone]. We suggest you call your [facility] insurance company about your coverage and benefits for this appointment. ENTER SUPERVISOR WOODEN SHIP Reason for Visit Reason Comments Revisit Encounter Details Date Type Department Care Team Description 12/26/2018 Office Visit [facility] Pete Gonzalez, S/P miguelito al spinal [facility] fusion (Primary Dx) [facility] [address] [facility] [address] [place] [address] [place] [address] [phone] Social History Tobacco Use Types Packs/Day Years [...] Comments Blood Pressure 115/72 12/26/2018 1:48 PM CARPENTER SUPERVISOR WOODEN SHIP Pulse 70 12/26/2018 1:48 PM CARPENTER SUPERVISOR WOODEN SHIP Temperature 36.5 ??C (97.7 ??F) 12/26/2018 1:48 PM CARPENTER SUPERVISOR [employer]EN SHIP Respiratory Rate - - Oxygen Saturation - - Inhaled Oxygen Concentration - - Weight 71.2 kg (157 lb) 12/26/2018 1:48 PM CARPENTER SUPERVISOR [employer]EN [employer] Height 152.4 cm (5') 12/26/2018 1:48 PM CARPENTER SUPERVISOR [employer]EN [employer]IP Body Mass Index 30.66 12/26/2018 1:48 PM CARPENTER SUPERVISOR [employer]EN SHIP documented in this encounter Patient Instructions Patient [...] your understanding. Please call the Neurosurgery Center [phone] with any further questions or concerns or if your symptoms worsen. Thank you for coming to see us today. We are your partner. ENTER SUPERVISOR WOODEN SHIP documented in this encounter Progress Notes Pete [...] at her current physical therapy Center at [facility] and also continued pain management in the [...] is prone to typos and grammatical errors. ENTER SUPERVISOR WOODEN SHIP documented in this encounter Plan of Treatment Scheduled Referrals Name Type Priority Associated Diagnoses Order S [facility] Physical Therapy Referral Routine S/P cervical spinal fusi on Ordered: 12/26/2018 documented as of this encounter Visit Diagnoses Diagnosis S/P cervical spinal fusion - Primary Arthrodesis status documented in this encounter Care Teams Underground Supervisor Relationship Specialty Start Date End Date Jose Holden MD PCP - General Otolaryngology 12/14/17 [place] [address] documented as of this encounter
--- OUTSIDE RECORDS SUMMARY | 2022-08-17 06:48 | XMS_ITS | Encounter Summary ---
:1965 Author Organization [facility] Address [address], [place] [address] Care Team Providers Name Role Phone Jose Holden MD Primary Care Provider Reason for Visit Reason Comments Revisit Encounter Details Date Type Department Care Team Description 08/14/2018 Office Visit [facility] Pete Gonzalez, Neck pain (Primary [facility] MD Dx) Neurosurgery/Ortho [address] [facility] Spine [address] [facility]. [place], [place] [address] [address] [phone] Social History Tobacco Use Types Packs/Day Years [...] Surgery center (4th floor [address], [place]).prior to your next appointment. Follow up: with [...] your understanding. Please call the Neurosurgery Center [phone] with any further questions or concerns or [...] Cervicalgia documented in this encounter Care Teams Stave Cutter Relationship Specialty Start Date End Date Jose Holden MD PCP - General Otolaryngology 12/14/17 [facility] [address] documented as of this encounter
--- OUTSIDE RECORDS SUMMARY | 2022-08-17 06:48 | XMS_ITS | Encounter Summary ---
:1965 Author Organization [facility] Address [address] [place] [address] Care Team Providers Name Role Phone Jose Holden MD Primary Care Provider Reason for Visit Reason Comments Revisit repeat injections Occipital VS Trigger point Encounter Details Date Type Department Care Team Description 02/06/2019 Office Visit [facility], Bilateral occ ipital neuralgia (Primary Dx); [facility] Carole Bowden Myalgia; Pain Management [address] Fibromyalgia; [address] 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 Tony Pittman MD Pain Medicine documented in this encounter Progress Notes Tony Pittman MD - 02/06/2019 2:30 PM CDT [facility] Follow-up Visit 02/06/2019 [...] Oxycodone 5 mg Q6H - Prescribes by [facility], has been taking for [...] at a pain clinic in the past. [facility] physical therapy: Past Acupuncture: [...] Pete Gonzalze ??? h/o anterior cervical fusion 2017 Dr. Ihsan Brooke, [facility] past surgical history reviewed with patient. [...] ??? medical cannabis patient certified Take 1 [place] by mouth . ??? naloxone (NARCAN) 4 [...] Gain No facility-administered medications prior to visit. [place] and [place] Prescription Monitoring Program reviewed Allergies: [...] in her mother. Social history:she lives in [place], [place].she is not currently working. Smokin/2 ppd. [...] These are unchanged from previous. 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 Patient education: I [...] myelopathy documented in this encounter Care Teams Aircraft Magneto Mechanic Relationship Specialty Start Date End Date Jose Holden MD PCP - General Otolaryngology 12/14/[address] [place] [address] documented as of this encounter
--- OUTSIDE RECORDS SUMMARY | 2022-08-17 06:48 | XMS_ITS | Encounter Summary ---
:1965 Author Organization [facility] Address [address] [place] [address] Care Team Providers Name Role Phone Unavailable Primary Care Provider Unavailable Reason for Visit Reason Onset Date Comments Previsit 12/11/2014 12/19/[address] Juice mackenzie Encounter Details Date Type Department Care Team Description 12/11/2014 PRE VISIT Yasmin, Previsit ( OV [facility] Shauna Alejo MD with Dr Humphrey) [place] [id number] [place], [place] [phone] (Wo rk) Social History Tobacco Use Types Packs/Day Years Used Date Never Assessed Sex Assigned at Date Recorded Not on file documented as of this encounter Plan of Treatment Not on filedocumented as of this encounter Visit Diagnoses Not on filedocumented in this encounter
--- OUTSIDE RECORDS SUMMARY | 2022-08-17 06:48 | XMS_ITS | Encounter Summary ---
:1965 Author Organization [facility] Address [address] [place] [address] Care Team Providers Name Role Phone Jose Holden MD Primary Care Provider [phone] Encounter Details Date Type Department Care Team Description 08/14/2018 Consent for [facility] ENT Procedure/Treat [facility] Tony Alvarado MD FOR TX/PROCEDURE ent Pain Management [address] [place] [phone] Social History Tobacco Use Types Packs/Day Years [...] on filedocumented in this encounter Care Teams Detective Bowling Alley Relationship Specialty Start Date End Date Jose Holden MD PCP - General Otolaryngology 12/14/[address] [place], [place] [phone] documented as of this encounter
--- OUTSIDE RECORDS SUMMARY | 2022-08-17 06:48 | XMS_ITS | Encounter Summary ---
:1965 Author Organization [facility] Address [address], [place] [address] Care Team Providers Name Role Phone Jose Holden MD Primary Care Provider Reason for Referral Procedure/Equipment (Routine) - Closed Specialty Diagnoses / Procedures Referred By Contact Refer red To Contact Diagnoses Intractable acute post-traumatic headache Blanka Mead APRN, CN P [address] [place] [address] Referral ID Status Reason Start Date Expiration Date Visits Requ ested Visits Authorized [id number] Closed 02/16/2019 05/17/2020 1 1 Scheduling Instructions . herapies (Routine) - Closed Specialty Diagnoses / Procedures Referred By Contact Refer red To Contact Diagnoses Impairment of balance Dizziness Blanka Mead APRN, CN P [address] [place] [address] Referral ID Status Reason Start Date Expiration Date Visits Requ ested Visits Authorized [id number] Closed 02/16/2019 04/17/2019 1 1 Scheduling Instructions Your provider has recommended an appoint ment with a [facility] Physical Therapist. Please stop at the clinic check out desk for assistance with scheduling or if you prefer to call for your appointment you may call [facility] Outpatient Rehabilitation at [phone]. We suggest you call your [employer] insurance company about your coverage and benefits for this appointment. Reason for Visit Reason Comments Consult, New Patient Consult/Transfer Care (Routine) - Closed Specialty Diagnoses / Procedures Referred By Contact Refer red To Contact Diagnoses Traumatic brain injury, without loss of consciousness, initial encounter (HRC) Tony Pittman MD [address] [place] [address] Referral ID Status Reason Start Date Expiration Date Visits Requ ested Visits Authorized [id number] Closed 12/26/2018 03/26/2020 1 1 Encounter Details Date Type Department Care Team Description 02/16/2019 Office Visit [facility] Mead, Impairment of balance (Primary Dx); Neuroscience Center Blanka Coulter s; Physical Medicine NIKKY Chavez, Intractable acute post-traum atic headache [address] [facility] [address] [address] [facility] [phone] [place] [address] Social History Tobacco Use Types [...] Body Mass Index 33.01 12/26/2018 1:48 PM TANK SETTER documented in this encounter Patient Instructions Patient [...] If you need to reschedule, please call [phone] as soon as you know you will not be able to make the appointment. If you have any questions or concerns, please call the clinic at [phone]. ?? If tests are needed, you will [...] treatment plan is please contact us at [phone] or send us a secure message via [employer]ela. If you need follow-up in the future, please call [phone] for an appointment. If you cannot get a time that satisfies you, please let us know what times work for you and we will do our best to accommodate you. Thank you for choosing Blanka Mead APRN, CNP and [facility] Physical Medicine and Rehabilitation. documented in [...] ER right away. She was seen at [facility]. According to the note from [facility]: the patient fell approximately 20 hours [...] She sees Dr. Bullard with neurosurgery at [facility]. She has a past medical history of [...] 2016 Dr. Ihsan Brooke, [facility] Family History: Family History Problem Relation [...] ??? medical cannabis patient certified Take 1 [place] by mouth . ??? naloxone (NARCAN) 4 [...] SPINE AP/LAT UPRIGHT LOCATION: [facility] DATE/TIME: 12/26/2018 1:44 PM ?? INDICATION: [...] able to review her head CT from [facility] as well as her cervical spine CT. Findings obtained by [place] on 11/10/2018 showed CSF spaces within normal [...] headache documented in this encounter Care Teams Fruit Peeler Relationship Specialty Start Date End Date Jose Holden MD PCP - General Otolaryngology 12/14/[address] [facility] [place] [address] documented as of this encounter
--- OUTSIDE RECORDS SUMMARY | 2022-08-17 06:48 | XMS_ITS | Encounter Summary ---
:1965 Author Organization [facility] Address [address] [place] [address] Care Team Providers Name Role Phone Jose Holden MD Primary Care Provider [phone] Encounter Details Date Type Department Care Team Description 12/26/2018 Consent for [facility] Pittman, CONSENT FOR Procedure/[facility] Toyn Alvarado MD PROCEDURE ent Pain Management [address] [place] [phone] Social History Tobacco Use Types Packs/Day Years [...] on filedocumented in this encounter Care Teams Speedboat Operator Relationship Specialty Start Date End Date Jose Holden MD PCP - General Otolaryngology 12/14/[address] [place] [address] documented as of this encounter
--- OUTSIDE RECORDS SUMMARY | 2022-08-17 06:49 | XMS_ITS | Encounter Summary ---
:1965 Author Organization [facility] Address [address] [place] [address] Care Team Providers Name Role Phone Jose Holden MD Primary Care Provider [phone] Reason for Visit Reason Comments Medication Questions FYI Encounter Details Date Type Department Care Team Description 03/01/2018 Telephone [facility] Pete Gonzalez MD Medication Questions; Neuro[facility] Center [address] [place] [address] FY I Neurosurgery/Ortho [address] [place] [address] [place] [address] [phone] (Wo rk) Social History Tobacco Use Types [...] on filedocumented in this encounter Care Teams Steward/Stewardess Third Class Relationship Specialty Start Date End Date Jose Holden MD PCP - General Otolaryngology 12/14/17 [facility] [place] [address] documented as of this encounter
--- OUTSIDE RECORDS SUMMARY | 2022-08-17 06:49 | XMS_ITS | Encounter Summary ---
:1965 [facility] Address [address], [place] [address] Care Team Providers Name Role Phone Jose Holden MD Primary Care Provider [phone] Reason for Visit Reason Comments Refill Encounter Details Date Type Department Care Team Description 03/07/[address] [facility] Neuroscience Pete Gonzalez MD Refill Center Neurosurgery[facility]Ortho [address] [facility] Spine [place] [address] [address] [place] [address] [phone] Social History Tobacco Use Types Packs/Day Years [...] on filedocumented in this encounter Care Teams Jacker Feeder Relationship Specialty Start Date End Date Jose Holden MD PCP - General Otolaryngology 12/14/[address] [place] [address] documented as of this encounter
--- OUTSIDE RECORDS SUMMARY | 2022-08-17 06:49 | XMS_ITS | Encounter Summary ---
:1965 Author Organization [facility] Address [address] [place] [address] Care Team Providers Name Role Phone Jose Holden MD Primary Care Provider [phone] Reason for Referral Therapies (Routine) - Closed Specialty Diagnoses / Procedures Referred By Contact Refer red To Contact Diagnoses S/P cervical spinal fusion Pete Gonzalez MD [address] [place] [address] Referral ID Status Reason Start Date Expiration Date Visits Requ ested Visits Authorized [id number] Closed 06/26/2018 08/25/2018 1 1 Scheduling Instructions Your provider has recommended an appoint ment with a [facility] Physical Therapist. Please stop at the clinic check out desk for assistance with scheduling or if you prefer to call for your appointment you may call [facility] Outpatient Rehabilitation [facility] at [phone]. We suggest yo u call your health insurance company about your coverage and benefits for this appo intment. Reason for Visit Reason Comments RESULTS, TEST Orders Needed Encounter Details Date Type Department Care Team Description 06/22/2018 Telephone [facility] Pete Gonzalez MD RESULTS, TEST; Orders Neuroscience Center [address] [place] [address] Neurosurgery/Ortho [address] [place] [address] [place] [id number] (Wo rk) Social History Tobacco Use Types [...] 08/14/[address] Gonzalez. Chava iSmon RN 06/28/2018, 11:41 AM Lois Pham PA-C [...] getting a stimulator or morphine pump through [facility] pain clinic. She is wondering if she should wait and discuss possible surgical options with Dr. Gonzalez or just get the stimulator or morphine pump? Please advise. Chava Simon RN 06/28/2018, 8:45 AM Michael Cruz - 06/28/2018 8:25 AM CDT Patient calling in regards to her imaging results. Agricultural Equipment Sales Engineer relayed message from Lois Pham PA-C. Patient states that she would like a return call. Patient states she doesn't understand why there are no acute concerns? She will be seeing [facility] to discuss getting a stimulator or morphine pump. Patient would like to know if she should move forward with this from Neurosurgery standpoint. Please call patient to further discuss and advise. Michael Cruz 06/28/2018, 8:27 AM Chava Simon RN - 06/28/2018 8:24 AM CDT [facility] Chava Simon RN 06/28/2018, 8:26 AM Lois Pham PA-C - 06/28/2018 6:47 AM CDT No acute concerns. Pt has follow up scheduled to review lumbar symptoms and imaging. Lois Pham PA-C Chava Simon RN - 06/27/2018 4:15 PM CDT Images from the original note were not included. Team, please review imaging and reports and advise. Chava Smion RN 06/27/2018, 4:17 PM Chava Simon RN [...] Michael Cruz - 06/26/2018 11:18 AM CDT Agricultural Equipment Sales Engineer reached patient and relayed message below to her. Patient expressed her appreciation. Per herrequest order has been sent to [facility] outpatient rehabilitation services at [phone] with a note to have them call patient to schedule. Patient aware they will reach out to schedule her for PT. She also states she picked up a copy of her imaging and they relayed that they had alreadysent one. Agricultural Equipment Sales Engineer called their radiology department and spoke to Selena who states a CD was not mailed out and she is not sure why. She took down clinic address of [address] [address] and stated she would send one out [...] sure she has had this sent from [facility] for team to review. Chava [...] of CT and MRIthat were done at [facility] on 06/20. Informed pt that [...] status documented in this encounter Care Teams Web Marketing Coordinator Relationship Specialty Start Date End Date Jose Holden MD PCP - General Otolaryngology 12/14/17 [facility] [place] [address] documented as of this encounter
--- OUTSIDE RECORDS SUMMARY | 2022-08-17 06:49 | XMS_ITS | Encounter Summary ---
:1965 Author Organization [facility] Address [address] [place] [address] Care Team Providers Name Role Phone Jose Holden MD Primary Care Provider [phone] Reason for Visit Reason Comments Revisit trigger point injections Encounter Details Date Type Department Care Team Description 06/29/2018 Office Visit [facility] Myalgia (Primary Dx); Neuroscience Center Raul Alvarado MD Medical marijuana use; Management [address] H/O cervical spinal arthrodesis; [address] [place], [place] [address] [phone] Social History Tobacco Use Types Packs/Day Years [...] treatment plan is, please contact me via [employer] online messaging or call the office at and ask to speak to a nurse. Tony Pittman MD Pain Medicine documented in this encounter Progress Notes Tony Pittman MD - 06/29/2018 10:20 AM CDT [facility] Follow-up Visit 06/29/2018 Interim [...] 5 mg Q6H - Prescribes by [facility], has been taking [...] a pain clinic in the past. [facility] physical therapy: Past [...] anterior cervical fusion 2016 Dr. Ihsan Brooke, [facility] past surgical history reviewed with patient. [...] ??? medical cannabis patient certified Take 1 [place] by mouth . ??? naloxone (NARCAN) [...] facility-administered medications prior to visit. [place] and [place] Prescription Monitoring Program reviewed Allergies: [...] in her mother. Social history:she lives in [place], [place].she is not currently working. Smokin/2 ppd. 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 It was created on his behalf by Gillian Harding, a trained medical officer. The creation of this record is based [...] disorder documented in this encounter Care Teams Dye Weigher Helper Relationship Specialty Start Date End Date Jose Holden MD PCP - General Otolaryngology 12/14/[address] [place] [address] documented as of this encounter
--- OUTSIDE RECORDS SUMMARY | 2022-08-17 06:49 | XMS_ITS | Encounter Summary ---
:1965 Author Organization [facility] Address [address], [place] [address] Care Team Providers Name Role Phone Jose Holden MD Primary Care Provider [phone] Reason for Visit Reason Comments Revisit occipital nerve block Encounter Details Date Type Department Care Team Description 07/10/2018 Office Visit [facility] Frank occipital neuralgia (Primary Dx); Neuroscience Center Pain RMD Myalgia; Management [address] H/O cervical spinal arthrodesis [address] [place] [address] [phone] Social History Tobacco Use Types Packs/Day Years [...] treatment plan is, please contact me via [employer] online messaging or call the office at and ask to speak to a nurse. Tony Pittman MD Pain Medicine documented in this encounter Progress Notes Tony Pittman MD - 07/10/2018 3:45 PM CDT [facility] Clinic Follow-up Visit 07/10/2018 Interim history: [...] Oxycodone 5 mg Q6H - Prescribes by [facility], has been taking for [...] at a pain clinic in the past. [facility] physical therapy: Past Acupuncture: [...] anterior cervical fusion 2017 Dr. Ihsan Brooke, [facility] past surgical history reviewed with patient. [...] ??? medical cannabis patient certified Take 1 [place] by mouth . ??? naloxone (NARCAN) 4 [...] 0 No facility-administered medications prior to visit. [place] and [place] Prescription Monitoring Program reviewed Allergies: [...] in her mother. Social history:she lives in [place], [place].she is not currently working. Smokin/2 ppd. 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 Patient education: I [...] Medicine Physical Medicine and Rehabilitation [facility] Pain Management This document serves as a record of services personally performed by Tony Pittman MD. It was created on his behalf by Gillian Harding, a trained medical accounting clerk. The creation of this record is based [...] status documented in this encounter Care Teams Aadc Plans Staff Officer Relationship Specialty Start Date End Date Jose Holden MD PCP - General Otolaryngology 12/14/[address] [place], [place] [address] [address] documented as of this encounter
--- OUTSIDE RECORDS SUMMARY | 2022-08-17 06:49 | XMS_ITS | Encounter Summary ---
:1965 [facility] Address [address] [place] [address] Care Team Providers Name Role Phone Jose Holden MD Primary Care Provider [phone] Encounter Details Date Type Department Care Team [...] filedocumented in this encounter Care Teams Railroad Repairer Relationship Specialty Start Date End Date Jose Holden MD PCP - General Otolaryngology 12/14/17 [address] [place] [address] documented as of this encounter
--- OUTSIDE RECORDS SUMMARY | 2022-08-17 06:49 | XMS_ITS | Encounter Summary ---
:1965 Author Organization [facility] Address [address], [place] [address] Care Team Providers Name Role Phone Jose Holden MD Primary Care Provider [phone] Reason for Referral Therapies (Routine) - Closed Specialty Diagnoses / Procedures Referred By Contact Refer red To Contact Diagnoses S/P cervical spinal fusion Pete Gonzalez MD [address] [place] [address] Referral ID Status Reason Start Date Expiration Date Visits Requ ested Visits Authorized [id number] Closed 08/16/2018 10/15/2018 1 1 Scheduling Instructions [facility] has recommended an appoin tment with a [facility] Physical Therapist. Please stop at the clinic check out desk for assistance with scheduling or if you prefer to call for your appointment you may call [facility] Outpatient Rehabilitation at [phone]. We suggest you call your [facility] insurance company about your coverage and benefits for this appointment. Encounter Details Date Type Department Care Team Description 07/07/2018 [facility]phone [facility] Pete Gonzalez MD Center Neurosurgery/Ortho [address] [facility] Spine [place], [place] [address] [address] [place] [address] [phone] Social History Tobacco Use Types Packs/Day Years [...] [place] - 08/16/2018 1:41 PM CDT Railroad Supervisor Of Engines contacted patient 08/16-faxed order to [facility] [phone] per patient request Chava Simon RN - [...] [facility] Referral Routine S/P cervical spinal fusi on Ordered: 08/16/2018 documented as of this encounter Visit Diagnoses Diagnosis S/P cervical spinal fusion - Primary Arthrodesis status documented in this encounter Care Teams Package Checker Relationship Specialty Start Date End Date Jose Holden MD PCP - General Otolaryngology 12/14/17 [place] [address] documented as of this encounter
--- OUTSIDE RECORDS SUMMARY | 2022-08-17 06:49 | XMS_ITS | Encounter Summary ---
:1965 Author Organization [facility] Address [address] [place] [address] Care Team Providers Name Role Phone Jose Holden MD Primary Care Provider [phone] Encounter Details Date Type Department Care Team Description 06/29/2018 Consent for [facility] ENT Procedure/Treat [facility] Tony Alvarado MD FOR TX/PROCEDURE ent Pain Management [address] [place] [phone] Social History Tobacco Use Types Packs/Day Years [...] on filedocumented in this encounter Care Teams Booth Manager Relationship Specialty Start Date End Date Jose Holden MD PCP - General Otolaryngology 12/14/[address] [place], [place] [phone] documented as of this encounter
--- OUTSIDE RECORDS SUMMARY | 2022-08-17 06:49 | XMS_ITS | Encounter Summary ---
:1965 Author [facility] Address [address] [place] [address] Care Team Providers Name Role Phone Jose Holden MD Primary Care Provider [phone] Encounter Details Date Type Department Care Team [...] on filedocumented in this encounter Care Teams Philosophy Instructor Relationship Specialty Start Date End Date Jose Holden MD PCP - General Otolaryngology 12/14/17 [address] [place] [address] documented as of this encounter
--- OUTSIDE RECORDS SUMMARY | 2022-08-17 06:49 | XMS_ITS | Encounter Summary ---
:1965 Author Organization [facility] Address [address] [place] [address] Care Team Providers Name Role Phone Jose Holden MD Primary Care Provider [phone] Encounter Details Date Type Department Care Team Description 06/20/2018 Consent for [facility] ENT Procedure/Treat [facility] Tony Alvarado MD FOR TX/PROCEDURE ent Pain Management [address] [place] [phone] Social History Tobacco Use Types Packs/Day Years [...] filedocumented in this encounter Care Teams Steel Grinder Relationship Specialty Start Date End Date Jose Holden MD PCP - General Otolaryngology 12/14/[address] [place], [place] [phone] documented as of this encounter
--- OUTSIDE RECORDS SUMMARY | 2022-08-17 06:49 | XMS_ITS | Encounter Summary ---
:1965 Author Organization [facility] Address [address], [place] [address] Care Team Providers Name Role Phone Jose Holden MD Primary Care Provider [phone] Reason for Visit Reason Comments QUESTIONS, GENERAL Encounter Details Date Type Department Care Team Description 02/24/2018 Telephone [facility] Pete Gonzalez MD QUESTIONS, GENERAL Neuroscience Center [address] [facility] Neurosurgery/Ortho [place], [place] [address] [address] [place] [address] [phone] Social History Tobacco Use Types Packs/Day Years [...] currently doing PT which was ordered through [facility] for her shoulder. She is worried [...] on filedocumented in this encounter Care Teams Pyrometer Operator Relationship Specialty Start Date End Date Jose Holden MD PCP - General Otolaryngology 12/14/17 [facility] [place] [address] documented as of this encounter
--- OUTSIDE RECORDS SUMMARY | 2022-08-17 06:49 | XMS_ITS | Encounter Summary ---
:1965 Author Organization [facility] Address [address], [place] [address] Care Team Providers Name Role Phone Jose Holden MD Primary Care Provider [phone] Reason for Visit Reason Comments POST-OP,EXAM Encounter Details Date Type Department Care Team Description 03/07/2018 Office Visit [facility] Denis P ostop check (Primary Center Neurosurgery/Ortho Dx ) Spine [address] [place], [place] [id number] Social History Tobacco Use Types Packs/Day Years [...] understanding. Please call the Neurosurgery/Spine Clinic at [phone] with any further questions or concerns. documented [...] 04/05/18 at 1:00pm with xrays prior Mandy oHwe RN 03/07/2018, 1:16 PM documented in this encounter Plan of Treatment Not on filedocumented as of this encounter Visit Diagnoses Diagnosis Postop check - Primary Follow-up examination, following unspeci fied surgery documented in this encounter Care Teams Golf Cart Attendant Relationship Specialty Start Date End Date Jose Holden MD PCP - General Otolaryngology 12/14/[address] [facility] [place] [address] documented as of this encounter
--- OUTSIDE RECORDS SUMMARY | 2022-08-17 06:49 | XMS_ITS | Encounter Summary ---
:1965 Author Organization [facility] Address [address] [place] [address] Care Team Providers Name Role Phone Jose Holden MD Primary Care Provider [phone] Reason for Visit Reason Comments UPDATE Encounter Details Date Type Department Care Team Description 07/07/2018 Telephone [facility] Gume Pittman, [facility] [address] [place] [address] [place] [address] [phone] (Wo rk) Social History Tobacco Use Types [...] Arenas RN - 07/07/2018 12:44 PM CDT Respiratory Care Specialist called patient, she states she has left neck/shoulder pain that did not improve after TPI's last week. Pt shares her right side of neck/shoulder is getting tight again and she is having headaches. Pt wants to proceed with occipital nerve blocks for her headache. Respiratory Care Specialist offered patient appointment 07/10 which she accepted. [...] blocks instead in the future ??Barriers: 1. assisted opioid use ??Plan: 1. Patient education: I [...] filedocumented in this encounter Care Teams Service Member Relationship Specialty Start Date End Date Jose Holden MD PCP - General Otolaryngology 12/14/17 [place] [address] documented as of this encounter
--- OUTSIDE RECORDS SUMMARY | 2022-08-17 06:49 | XMS_ITS | Encounter Summary ---
:1965 [facility] Address [address] [place] [address] Care Team Providers Name Role Phone Jose Holden MD Primary Care Provider [phone] Reason for Visit Procedure/Equipment (Routine) - Incomplete Specialty Diagnoses / Procedures Referred By Contact Refer red To Contact Diagnoses S/P cervical spinal fusion Sirisha Rankin, Procedures XR Cervical Spine AP/Lat Upright SENIOR DATA MINING ANALYST, SOUND EFFECTS TECHNICIAN [address] [place] [address] Referral ID Status Reason Start Date Expiration Date Visits V isits Requested Authorized [id number] Incomplete 04/05/2018 07/05/2019 1 1 Encounter Details Date Type Department Care Team Description 06/14/2018 Imaging [facility] Sneha Maher, S/P cervi [facility] spinal Neuroscience Center Sirisha Celaya, APR N, SOUND EFFECTS TECHNICIAN fusion Radiology [address] [place] [address] [place] [address] [phone] Social History Tobacco Use Types Packs/Day Years [...] PM CDT Narrative 06/14/2018 5:54 PM CDT [facility] XR CERVICAL SPINE AP/LAT [...] note might be different from the original. [facility] XR CERVICAL SPINE AP/LAT [...] soft tissue swelling. Remainder unchanged. Sirisha Maher SENIOR DATA MINING ANALYST, SOUND EFFECTS TECHNICIAN RAD GD documented in this encounter Visit Diagnoses Diagnosis S/P cervical spinal fusion Arthrodesis status documented in this encounter Care Teams Director [employer]itation Bureau Relationship Specialty Start Date End Date Jose Holden MD PCP - General Otolaryngology 12/14/17 [place] [address] documented as of this encounter
--- OUTSIDE RECORDS SUMMARY | 2022-08-17 06:49 | XMS_ITS | Encounter Summary ---
:1965 Author Organization [facility] Address [address] [address] Care Team Providers Name Role Phone Jose Holden MD Primary Care Provider [phone] Reason for Visit Reason Comments QUESTIONS, GENERAL Encounter Details Date Type Department Care Team Description 03/01/2018 Telephone [facility] Pete Gonzalez MD QUESTIONS, GENERAL Neuro[facility] [address] [facility] [place] Neurosurgery/Ortho [place], [place] [address] [address] [place] [address] [phone] Social History Tobacco Use Types Packs/Day Years [...] Chantel Angela - 03/01/2018 11:12 AM CDT Angei called requesting to speak with nurse. She [...] she should go to the ED in [place]? Please review and advise. Chantel Angela 03/01/2018, 11:15 AM documented in this encounter Plan of Treatment Not on filedocumented as of this encounter Visit Diagnoses Not on filedocumented in this encounter Care Teams Medic Technician Relationship Specialty Start Date End Date Jose Holden MD PCP - General Otolaryngology 12/14/17 [facility] [place] [address] documented as of this encounter
--- OUTSIDE RECORDS SUMMARY | 2022-08-17 06:49 | XMS_ITS | Encounter Summary ---
:1965 Author Organization [facility] Address [address], [place] [address] Care Team Providers Name Role Phone Jose Holden MD Primary Care Provider [phone] Reason for Visit Reason Comments Medication Check In Encounter Details Date Type Department Care Team Description 03/07/2018 Telephone [facility] Pete Gonzalez MD Medication Check In [facility] [address] [facility] Neuro[facility]Ortho [place], [place] [address] [address] [place] [address] [phone] Social History Tobacco Use Types Packs/Day Years [...] 12:25 PM CDT Pharmacist Mandy calling from [facility]. She would like to inform provider [...] on filedocumented in this encounter Care Teams Salesperson [employer] Relationship Specialty Start Date End Date Jose Holden MD PCP - General Otolaryngology 12/14/17 [place] [address] documented as of this encounter
--- OUTSIDE RECORDS SUMMARY | 2022-08-17 06:49 | XMS_ITS | Encounter Summary ---
:1965 [facility] Address [address] [address] Care Team Providers Name Role Phone Jose Holden MD Primary Care Provider [phone] Reason for Visit Auth/Cert Specialty Diagnoses / [...] Expiration Date Visits Requ ested Visits Authorized [id number] 1 1 Encounter Details Date Type Department Care Team Description 02/20/2018 [facility] Pete Gonzalez MD [address] [place] [address] [place] [address] [phone] (Wo rk) Social History Tobacco Use Types [...] 2:06 PM CDT Fluoroscopy provided by a sterile processing technologist. Exact fluoroscopy time is documented in end of exam information in EPIC Pete Gonzalez MD RAD GD documented in this encounter Visit Diagnoses Not on filedocumented in this encounter Care Teams Field Service Rep Relationship Specialty Start Date End Date Jose Holden MD PCP - General Otolaryngology 12/14/[address] [place], [place] [address] [address] documented as of this encounter
--- OUTSIDE RECORDS SUMMARY | 2022-08-17 06:49 | XMS_ITS | Encounter Summary ---
:1965 [facility] Address [address] [place] [address] Care Team Providers Name Role Phone Jose Holden MD Primary Care Provider [phone] Encounter Details Date Type Department Care Team [...] on filedocumented in this encounter Care Teams Tour Production Supervisor Relationship Specialty Start Date End Date Jose Holden MD PCP - General Otolaryngology 12/14/17 [place] [address] documented as of this encounter
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
--- OUTSIDE RECORDS SUMMARY | 2022-08-17 06:49 | XMS_ITS | Encounter Summary ---
:1965 Author Organization [facility] Address [address], [place] [address] Care Team Providers Name Role Phone Jose Holden MD Primary Care Provider [phone] Reason for Referral Procedure/Equipment (Routine) - Incomplete Specialty Diagnoses / Procedures Referred By Contact Refer red To Contact Diagnoses S/P cervical spinal fusion Sirisha Rankin, Procedures XR Cervical Spine AP/Lat Upright KALPANA SHER [address] [place] [address] Referral ID Status Reason Start Date Expiration Date Visits V isits Requested Authorized [id number] Incomplete 04/05/2018 07/05/2019 1 1 Reason for Visit Reason Comments POST-OP,EXAM Encounter Details Date Type Department Care Team Description 04/05/2018 Office Visit [facility] Sneha Maher, S/Camelia cervic al spinal [facility] RODRICK Newberry CNP fusion (Primary Dx) Neurosurgery/Ortho [address] Spine [place], [place] [address] [address] [place] [address] [phone] Social History Tobacco Use Types Packs/Day Years [...] your understanding. Please call the Neurosurgery Center [phone] with any further questions or concerns or if your symptoms worsen. Thank you for coming to see us today. We are your partner. documented in this encounter Progress Notes Sirisha Rankin, SENIOR QA TESTER, PERSONAL CLOTHING LAUNDRY AIDE - 04/05/2018 1:00 PM CDT POSTOPERATIVE DIAGNOSES: [...] a divorce and plans to move to [place] in the next several months. She would like to have an appointment with Dr. Gonzalez prior to her move out of [facility]. She denies any incisional concerns. She has [...] elbow(tricep) R:5/5 L: 5/5 C8 - Finger flexors(cigar binder) R:5/5 L: 5/5 T1 - Finger abduction/adduction [...] CDT Narrative 06/14/2018 5:54 PM CDT [facility] XR CERVICAL SPINE AP/LAT UPRIGHT 06/14/2018 1:41 [...] tissue swelling. Remainder unchanged. Sirisha Maher SENIOR QA TESTER, PERSONAL CLOTHING LAUNDRY AIDE RAD GD documented in this encounter Visit Diagnoses Diagnosis S/P cervical spinal fusion - Primary Arthrodesis status S/P cervical spinal fusion Arthrodesis status documented in this encounter Care Teams Environmental Science Professor Relationship Specialty Start Date End Date Jose Holden MD PCP - General Otolaryngology 12/14/17 [place] [address] documented as of this encounter
--- OUTSIDE RECORDS SUMMARY | 2022-08-17 06:49 | XMS_ITS | Encounter Summary ---
:1965 Author Organization [facility] Address [address], [place] [address] Care Team Providers Name Role Phone Jose Holden MD Primary Care Provider [phone] Reason for Visit Procedure/Equipment (Routine) - Incomplete Specialty Diagnoses / Procedures Referred By Contact Refer red To Contact Diagnoses Cervical spondylosis with radiculopathy (HRC) Sneha Maher, Sirisha Celaya, Procedures XR Cervical Spine AP/Lat Upright FUEL CELL ASSEMBLER, SHEET ROCK TAPER HELPER [address] [place] [address] Referral ID Status Reason Start Date Expiration Date Visits V isits Requested Authorized [id number] Incomplete 02/21/2018 05/23/2019 1 1 Encounter Details Date Type Department Care Team Description 04/05/2018 Imaging [facility] Sneha Maher, Cervical spondylosis [facility] Sirisha Celaya, APR N, SHEET ROCK TAPER HELPER with radiculopathy Radiology [address] [place] [address] [phone] (Wo rk) Social History Tobacco Use Types [...] Anatomic alignment. Shoulder prosthesis. Sirisha Yomi Maher FUEL CELL ASSEMBLER, SHEET ROCK TAPER HELPER RAD GD documented in this encounter Visit Diagnoses Diagnosis Cervical spondylosis with radiculopathy (HRC) Cervical spondylosis with myelopathy documented in this encounter Care Teams Proration Clerk Relationship Specialty Start Date End Date Jose Holden MD PCP - General Otolaryngology 12/14/[address] [place], [place] [address] [address] documented as of this encounter
--- OUTSIDE RECORDS SUMMARY | 2022-08-17 06:49 | XMS_ITS | Encounter Summary ---
:1965 Author Organization [facility] Address [address] [place] [address] Care Team Providers Name Role Phone Jose Holden MD Primary Care Provider [phone] Reason for Referral Procedure/Equipment (Routine) - Closed Specialty Diagnoses / Procedures Referred By Contact Refer red To Contact Diagnoses Neck pain Pete Gonzalez MD [address] [place] [address] Referral ID Status Reason Start Date Expiration Date Visits Requ ested Visits Authorized [id number] Closed 06/14/2018 12/11/2018 1 1 Scheduling Instructions [...] Dx); Neuroscience Center Neck pain Neurosurgery/Ortho [address] [facility] Spine S [address] [place] [address] [place] [id number] Social History Tobacco Use Types Packs/Day Years [...] your understanding. Please call the Neurosurgery Center [phone] with any further questions or concerns or [...] Cervicalgia documented in this encounter Care Teams Organizational Development Consultant Relationship Specialty Start Date End Date Jose Holden MD PCP - General Otolaryngology 12/14/17 [place] [address] documented as of this encounter
--- OUTSIDE RECORDS SUMMARY | 2022-08-17 06:49 | XMS_ITS | Encounter Summary ---
:1965 Author Organization [facility] Address [address] [place] [address] Care Team Providers Name Role Phone Jose oHlden MD Primary Care Provider [phone] Encounter Details Date Type Department Care Team Description 07/10/2018 Consent for [facility] Procedure/Treat [facility] Tony Alvarado MD FOR TX/PROCEDURE ent Pain Management [address] [place] [phone] Social History Tobacco Use Types Packs/Day Years [...] on filedocumented in this encounter Care Teams Tc Operator Relationship Specialty Start Date End Date Jose Holden MD PCP - General Otolaryngology 12/14/[address] [place], [place] [id number] documented as of this encounter
--- OUTSIDE RECORDS SUMMARY | 2022-08-17 06:49 | XMS_ITS | Encounter Summary ---
:1965 Author Organization [facility] Address [address] [place] [address] Care Team Providers Name Role Phone Jose Holden MD Primary Care Provider Reason for Visit Reason Comments Revisit Bilateral cervical/thoracic trigger point injections Encounter Details Date Type Department Care Team Description 06/20/2018 Office Visit [facility] Myalgia (Primary Dx); [facility] Pain RMD H/O cervical spinal arthrodesis; Management [address] Cervical vertebral fusion; [address] [place], [place] Fibromyalgia; [place] [address] Tobacco use disorder; [phone] Status post tot al left knee replacement [...] in ALL states. As laws can change management lead time, one should review the state government [...] treatment plan is, please contact me via Datalot online messaging or call the office at [...] Oxycodone 5 mg Q6H - Prescribes by [facility], has been taking for [...] at a pain clinic in the past. [facility] physical therapy: Past Acupuncture: [...] facility-administered medications prior to visit. [place] and [place] Prescription Monitoring Program reviewed Allergies: Allergies Allergen [...] in her mother. Social history:she lives in [place], [place].she is not currently working. Smokin/2 ppd. [...] post total left knee replacement Barriers: 1. salvage determiner opioid use Plan: 1. Patient education: I went over the above diagnoses and treatment plan with her and answered all of her questions. 2. Imaging review: None 3. Exercise program: Regular exercise and activity 4. Medications: No changes. Do not recommend exterminator helper termite opioid use, continue to decrease use until [...] his behalf by Gillian Harding, a trained lead medical technologist. The creation of this record [...] replacement documented in this encounter Care Teams Shrinker Relationship Specialty Start Date End Date Jose Holden MD PCP - General Otolaryngology 12/14/[address] [facility] [place] [address] documented as of this encounter
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
--- OUTSIDE RECORDS SUMMARY | 2022-08-17 06:49 | XMS_ITS | Encounter Summary ---
:1965 Author [facility] Address [address], [place] [address] Care Team Providers Name Role Phone Jose Holden MD Primary Care Provider [phone] Reason for Visit Auth/Cert Specialty Diagnoses / [...] Expiration Date Visits Requ ested Visits Authorized [id number] 1 1 Encounter Details Date Type Department Care Team Description 02/21/2018 [facility] Pete Gonzalez MD [address] [place] [address] [place] [address] [phone] (Wo rk) Social History Tobacco Use Types [...] on filedocumented in this encounter Care Teams Porcelain Enameler Relationship Specialty Start Date End Date Jose Holden MD PCP - General Otolaryngology 12/14/[address] [place] [address] documented as of this encounter
--- OUTSIDE RECORDS SUMMARY | 2022-08-17 06:50 | XMS_ITS | Encounter Summary ---
:1965 Author Organization [facility] Address [address] [address] Care Team Providers Name Role Phone Jose Holden MD Primary Care Provider [phone] Encounter Details Date Type Department Care Team Description 12/02/2017 Orders Only External to Pete Gonzalez MD [address] [place], [place] [address] (Wo rk) Social History Tobacco Use Types [...] 12/02/2017 12:00 AM Resul ts for this CHIEF ORTHOPTIST procedure are i n the results section. documented in this encounter Results MRI SPINE--SCAN (12/02/2017 12:00 AM CHIEF ORTHOPTIST) Anatomical Region Laterality Modality Other Specimen (Source) Anatomical Location Collection Method / Collectio n Time Received Time / Laterality Volume 12/02/2017 Narrative This result has an attachment that is no t available. Pete Gonzalez MD DUMMY/OTHER/AR documented in this encounter Visit Diagnoses Not on filedocumented in this encounter Care Teams Convolute Tube Winder Relationship Specialty Start Date End Date Jose Holden MD PCP - General Otolaryngology 12/14/17 [address] [place], [place] [id number] documented as of this encounter
--- OUTSIDE RECORDS SUMMARY | 2022-08-17 06:50 | XMS_ITS | Encounter Summary ---
:1965 [facility] Address [address] [place] [address] Care Team Providers Name Role Phone Jose Holden MD Primary Care Provider [phone] Encounter Details Date Type Department Care Team Description 01/17/2018 Telephone [facility] Chava Simon RN Center Neurosurgery/ Ortho Spine [address] [facility] [place] [address] Social History Tobacco Use Types [...] in. Chava Simon RN 01/17/2018, 1:26 PM ENT CARRIER documented in this encounter Plan of Treatment Not on filedocumented as of this encounter Visit Diagnoses Not on filedocumented in this encounter Care Teams Client Care Consultant Relationship Specialty Start Date End Date Jose Holden MD PCP - General Otolaryngology 12/14/17 [address] [place] [address] documented as of this encounter
--- OUTSIDE RECORDS SUMMARY | 2022-08-17 06:50 | XMS_ITS | Encounter Summary ---
:1965 Author Organization [facility] Address [address], [place] [address] Care Team Providers Name Role Phone Jose Holden MD Primary Care Provider Reason for Visit Reason Comments QUESTIONS, GENERAL Encounter Details Date Type Department Care Team Description 01/19/2018 Telephone [facility] Pete Gonzalez MD QUESTIONS, GENERAL Neuroscience Center [address] [facility] [place] Neurosurgery/Ortho S [place], [place] [address] [address] [place] [address] [phone] Social History Tobacco Use Types Packs/Day Years [...] of MRI was received via mail from [facility]. CD given to RN NESS ADMINISTRATOR Chava Simon RN - 01/19/2018 12:00 PM CST Patient states she will bring the MRI CD hopefully tomorrow 01/20/2018. Chava Simon RN 01/19/2018, 12:01 PM NESS ADMINISTRATOR Gi De La Vega - 01/19/2018 11:47 AM CST Patient calling to speak to RN. Would like to speak to him regarding an MRI CD? Please call her at [phone]. NESS ADMINISTRATOR documented in this encounter Plan of Treatment Not on filedocumented as of this encounter Visit Diagnoses Not on filedocumented in this encounter Care Teams Clamshell Operator Relationship Specialty Start Date End Date Jose Holden MD PCP - General Otolaryngology 12/14/17 [facility] [place] [address] documented as of this encounter
--- OUTSIDE RECORDS SUMMARY | 2022-08-17 06:50 | XMS_ITS | Encounter Summary ---
:1965 Author Organization [facility] Address [address] [place] [address] Care Team Providers Name Role Phone Jose Holden MD Primary Care Provider [phone] Encounter Details Date Type Department Care [...] on filedocumented in this encounter Care Teams Paste Up Worker Relationship Specialty Start Date End Date Jose Holden MD PCP - General Otolaryngology 12/14/17 [place] [address] documented as of this encounter
--- OUTSIDE RECORDS SUMMARY | 2022-08-17 06:50 | XMS_ITS | Encounter Summary ---
:1965 Author [facility] Address [address] [place] [address] Care Team Providers Name Role Phone Jose Holden MD Primary Care Provider Encounter Details Date Type Department Care Team Description 02/13/2018 Orders Only External to [facility] External, [place] [address] Social History Tobacco Use Types Packs/Day Years [...] on filedocumented in this encounter Care Teams Overhead Garage Door Hanger Relationship Specialty Start Date End Date Jose Holden MD PCP - General Otolaryngology 12/14/17 [place] [address] documented as of this encounter
--- OUTSIDE RECORDS SUMMARY | 2022-08-17 06:50 | XMS_ITS | Encounter Summary ---
:1965 Author Organization [facility] Address [address], [place] [address] Care Team Providers Name Role Phone Jose Holden MD Primary Care Provider [phone] Encounter Details Date Type Department Care Team Description 12/02/2017 Orders Only External to Pete Gonzalez MD [address] [place], [place] [address] (Wo rk) Social History Tobacco Use Types [...] 12/02/2017 12:00 AM Resul ts for this TRUCK GREASER procedure are i n the results section. documented in this encounter Results MRI SPINE--SCAN (12/02/2017 12:00 AM TRUCK GREASER) Anatomical Region Laterality Modality Other Specimen (Source) Anatomical Location Collection Method / Collectio n Time Received Time / Laterality Volume 12/02/2017 Narrative This result has an attachment that is no t available. Pete Gonzalez MD DUMMY/OTHER/AR documented in this encounter Visit Diagnoses Not on filedocumented in this encounter Care Teams Marketing Associate Relationship Specialty Start Date End Date Jose Holden MD PCP - General Otolaryngology 12/14/17 [address] [place], [place] [address] documented as of this encounter
--- OUTSIDE RECORDS SUMMARY | 2022-08-17 06:50 | XMS_ITS | Encounter Summary ---
:1965 Author Organization [facility] Address [address] [place] [address] Care Team Providers Name Role Phone Jose Holden MD Primary Care Provider [phone] Encounter Details Date Type Department Care Team Description 02/07/2018 Prep for Surgery [facility] Sneha Maher, Neuroscience Center Sirisha L, APR N, CONTACT LENS CURVE GRINDER Neurosurgery/Ortho [place] [address] [place] [address] [place] [address] [phone] Social History Tobacco Use Types Packs/Day Years [...] on filedocumented in this encounter Care Teams Tuber Helper Relationship Specialty Start Date End Date Jose Holden MD PCP - General Otolaryngology 12/14/[address] [place] [address] documented as of this encounter
--- OUTSIDE RECORDS SUMMARY | 2022-08-17 06:50 | XMS_ITS | Encounter Summary ---
:1965 Author [facility] Address [address], [place] [address] Care Team Providers Name Role Phone Jose Holden MD Primary Care Provider [phone] Reason for Visit Auth/Cert Specialty Diagnoses / [...] Expiration Date Visits Requ ested Visits Authorized [id number] 1 1 Encounter Details Date Type Department Care Team Description 02/20/2018 [facility] Pete Gonzalez MD [address] [place] [address] [place] [address] [phone] (Wo rk) Social History Tobacco Use Types [...] filedocumented in this encounter Care Teams Radio Equipment Installer Relationship Specialty Start Date End Date Jose Holden MD PCP - General Otolaryngology 12/14/[address] [place] [address] documented as of this encounter
--- OUTSIDE RECORDS SUMMARY | 2022-08-17 06:50 | XMS_ITS | Encounter Summary ---
:1965 Author Organization [facility] Address [address] [place] [address] Care Team Providers Name Role Phone Jose Holden MD Primary Care Provider [phone] Encounter Details Date Type Department Care Team Description 01/20/2018 Telephone [facility] Neuro[facility] Chava Simon RN Center Neurosurgery/ Ortho Spine [address] [place] [address] Social History Tobacco Use Types Packs/Day [...] placed. Chava Simon RN 01/25/2018, 8:24 AM IFE PRACTITIONER Chava Simon RN - 01/24/2018 12:[address] Gonzalez reviewed imaging and is waiting until appropriate time to place case request. Chava Simon RN 01/24/2018, 12:45 PM IFE PRACTITIONER Gi De La Vega - 01/20/2018 11:21 AM CST Patient called to speak to RN. She has a new phone number. Please call her at [phone]. thanks IFE PRACTITIONER Chava Simon RN - 01/20/2018 11:15 AM CST Images from the original note were not included. Team please have Dr. Gonzalez review imaging which is now on PACs and place case request. Chava Simon RN 01/20/2018, 11:18 AM IFE PRACTITIONER documented in this encounter Plan of Treatment Not on filedocumented as of this encounter Visit Diagnoses Not on filedocumented in this encounter Care Teams Global President Relationship Specialty Start Date End Date Jose Holden MD PCP - General Otolaryngology 12/14/[address] [place], [place] [address] [address] documented as of this encounter
--- OUTSIDE RECORDS SUMMARY | 2022-08-17 06:50 | XMS_ITS | Encounter Summary ---
:1965 Author Organization [facility] Address [address] [address] Care Team Providers Name Role Phone Jose Holden MD Primary Care Provider [phone] Reason for Visit Auth/Cert Specialty Diagnoses / [...] Expiration Date Visits Requ ested Visits Authorized [id number] 1 1 Encounter Details Date Type Department Care Team Description 02/20/2018 [facility] Pete Gonzalez MD [address] [place] [address] [place] [address] [phone] (Wo rk) Social History Tobacco Use Types [...] PM CDT Fluoroscopy provided by a radiology physician. Exact fluoroscopy time is documented in end of exam information in EPIC Pete Gonzalez MD RAD GD documented in this encounter Visit Diagnoses Not on filedocumented in this encounter Care Teams Hose Wrapper Relationship Specialty Start Date End Date Jose Holden MD PCP - General Otolaryngology 12/14/17 [facility] [place] [address] documented as of this encounter
--- OUTSIDE RECORDS SUMMARY | 2022-08-17 06:50 | XMS_ITS | Encounter Summary ---
:1965 Author [facility] Address [address] [address] Care Team Providers Name Role Phone Jose Holden MD Primary Care Provider Reason for Visit Reason Comments Consult, New Patient vocal cord analysis Consult/Transfer Care (Routine) - Closed Specialty Diagnoses / Procedures Referred By Contact Refer red To Contact Diagnoses Pseudarthrosis after fusion or arthrodesis Screening procedure Pete Gonzalez MD [address] [place] [address] Referral ID Status Reason Start Date Expiration Date Visits Requ ested Visits Authorized [id number] Closed 11/29/2017 02/28/2019 1 1 Encounter Details Date Type Department Care Team Description 12/26/2017 Office Visit Specialty Center Jose Holden Cer vical vertebral 401 Otolaryngology MD Deyvi fusion (Primary Dx) [address] [place] [address] [place], [place] [phone] Social History Tobacco Use Types Packs/Day Years [...] (166 lb 12.8 oz) 12/26/2017 2:06 PM BAGGING SALVAGER Height - - Body Mass Index 32.58 11/29/2017 10:21 AM BAGGING SALVAGER documented in this encounter Progress Notes Jose Holden MD - 12/26/2017 3:00 PM CST HPI: Angie Mosquera is a 52 y.o. old female who presents for vocal cord evaluation prior to cervical spine surgery. Patient has significant history of cervical spine surgery having approximate four procedures, three in [place] one here in the [place] area last year. After her last surgery, developed significant hoarseness, loss of voice for approximately three months. Cervical approach with her last surgery was left-hand side. States that she was evaluated by a mainspring strip gauger and there were plans for a procedure [...] times per day. 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 Not currently working. [...] software and may contain unintended word substitutions. ING SALVAGER documented in this encounter Plan of Treatment Not on filedocumented as of this encounter Visit Diagnoses Diagnosis Cervical vertebral fusion - Primary Klippel-Feil syndrome documented in this encounter Care Teams Paramedic Relationship Specialty Start Date End Date Jose Holden MD PCP - General Otolaryngology 12/14/17 [facility] [place] [address] documented as of this encounter
--- OUTSIDE RECORDS SUMMARY | 2022-08-17 06:50 | XMS_ITS | Encounter Summary ---
:1965 Author Organization [facility] Address [address] [place] [address] Care Team Providers Name Role Phone Jose Holden MD Primary Care Provider [phone] Reason for Referral (Routine) - Incomplete Specialty [...] (*), IMAGE GUIDANCE ADD ON SPINE (*) [place] [address] Referral ID Status Reason Start Date Expiration Date Visits V isits Requested Authorized [id number] Incomplete 01/25/2018 04/26/2019 1 1 H CAREER SPECIALIST Encounter Details Date Type Department Care Team Description 01/25/2018 Prep for [facility] Pete Gonzalez, Cervical s pondylosis with radiculopathy (Primary Dx); [facility] 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 [address] [place] [address] [phone] Social History Tobacco Use Types Packs/Day Years [...] Cervicalgia documented in this encounter Care Teams Care Process Manager Relationship Specialty Start Date End Date Jose Holden MD PCP - General Otolaryngology 12/14/17 [facility] [place] [address] documented as of this encounter
--- OUTSIDE RECORDS SUMMARY | 2022-08-17 06:50 | XMS_ITS | Encounter Summary ---
:1965 Author Organization [facility] Address [address] [place] [address] Care Team Providers Name Role Phone Jose Holden MD Primary Care Provider [phone] Encounter Details Date Type Department Care Team Description 02/13/2018 Orders Only External to HP External, [place] [address] Social History Tobacco Use Types Packs/Day Years [...] on filedocumented in this encounter Care Teams Back Up Machine Operator Relationship Specialty Start Date End Date Jose Holden MD PCP - General Otolaryngology 12/14/17 [place] [address] documented as of this encounter
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
--- OUTSIDE RECORDS SUMMARY | 2022-08-17 06:50 | XMS_ITS | Encounter Summary ---
:1965 Author Organization [facility] Address [address], [place] [address] Care Team Providers Name Role Phone Jose Holden MD Primary Care Provider [phone] Encounter Details Date Type Department Care Team Description 12/02/2017 Orders Only External to Pete Gonzalez MD [address] [place], [place] [address] (Wo rk) Social History Tobacco Use Types [...] 12/02/2017 12:00 AM Resul ts for this TYPE ROLLING MACHINE OPERATOR procedure are i n the results section. documented in this encounter Results MRI SPINE--SCAN (12/02/2017 12:00 AM TYPE ROLLING MACHINE OPERATOR) Anatomical Region Laterality Modality Other Specimen (Source) Anatomical Location Collection Method / Collectio n Time Received Time / Laterality Volume 12/02/2017 Narrative This result has an attachment that is no t available. Pete Gonzalez MD DUMMY/OTHER/AR documented in this encounter Visit Diagnoses Not on filedocumented in this encounter Care Teams Training Systems Officer Relationship Specialty Start Date End Date Jose Holden MD PCP - General Otolaryngology 12/14/17 [address] [place], [place] [phone] documented as of this encounter
--- OUTSIDE RECORDS SUMMARY | 2022-08-17 06:50 | XMS_ITS | Encounter Summary ---
:1965 Author Organization [facility] Address [address], [place] [address] Care Team Providers Name Role Phone Jose Holden MD Primary Care Provider [phone] Reason for Visit Reason Comments QUESTIONS, GENERAL Encounter Details Date Type Department Care Team Description 02/03/2018 Telephone [facility] Pete Gonzalez MD QUESTIONS, GENERAL [facility] [address] [facility] AL[facility] Neurosurgery/Ortho [place], [place] [address] [address] [place] [address] [phone] Social History Tobacco Use Types Packs/Day Years [...] PA. Chava Simon RN 02/03/2018, 12:01 PM OTR TRUCK DRIVER Gi De La Vega - 02/03/2018 11:55 AM CST Patient calling to speak to Jamir. Would like to know about her surgery. Audio Tape Librarian did let patient know that Ana Rosa oral surgery assistant is out of the office. She did request to speak to Jamir. Please call her at listed number. Thanks OTR TRUCK DRIVER documented in this encounter Plan of Treatment Not on filedocumented as of this encounter Visit Diagnoses Not on filedocumented in this encounter Care Teams General Forecaster Relationship Specialty Start Date End Date Jose Holden MD PCP - General Otolaryngology 12/14/[address] [place], [place] [address] [address] documented as of this encounter
--- OUTSIDE RECORDS SUMMARY | 2022-08-17 06:50 | XMS_ITS | Encounter Summary ---
:1965 Author Organization [facility] Address [address] [place] [address] Care Team Providers Name Role Phone Jose Holden MD Primary Care Provider [phone] Reason for Referral Consult/Transfer Care (Routine) - Closed Specialty Diagnoses / Procedures Referred By Contact Refer red To Contact Neurosurgery Diagnoses Pseudarthrosis after fusion or arthrodesis Pete Gonzalez MD [facility] Neurosurgery/Ortho [address] [place] [address] [place] [address] Phone: Fax: Referral ID Status Reason Start Date Expiration Date Visits Requ ested Visits Authorized [id number] Closed 01/17/2018 04/18/2019 1 1 Scheduling Instructions Your provider has recommended an appoint ment for a pre-operative pain consult with [facility]?? You may call [phone] to schedule your appointment.?? If you prefer, a mirela billy will contact you within the next 3 business days to assist you in setting u p this appointment. MIXER Reason for Visit Reason Comments Revisit Encounter Details Date Type Department Care Team Description 01/17/2018 Office Visit [facility], Pseudarthr osis after [facility] MD fusion or arthrodesis Neurosurgery/Ortho [address] [place] (Primar y Dx) [address] [place] [address] [place] [address] [phone] Social History Tobacco Use Types Packs/Day Years [...] Comments Blood Pressure 137/83 01/17/2018 11:51 AM SIZE MIXER Pulse 83 01/17/2018 11:51 AM SIZE MIXER Temperature 36.5 ??C (97.7 ??F) 01/17/2018 11:51 AM SIZE MIXER Respiratory Rate 16 01/17/2018 11:51 AM SIZE MIXER Oxygen Saturation - - Inhaled Oxygen Concentration [...] business days) Please call Ana Rosa at [phone] if you have not heard from her. [...] prior to surgery. Please fax preops to [phone] Nothing to eat or drink from midnight [...] and Apply plenty of Hibiclens*, a special lining cleaner, to a clean, wet washcloth. Wash [...] 8am-5pm, please call the Neurosurgery Clinic at [phone] if youhave any concerns related to your surgery before going to the Emergency Room, your family physician,or an Urgent Care. After hours call the [facility] at [phone]. PAIN MEDICATION POLICY The Department of Neurosurgery [...] duringweekend hours. Day of surgery, arrive at [facility] on 3rd floor 2 hours prior to surgery. The Same Day Surgery Nurses will call you 1-3 days prior to surgery to inform you what time you should arrive for your surgery. If they do not reach you, please call if your surgery is at [facility]. Review your surgery packet. Contact the Neurosurgery Center [phone] if you have any questions or concerns MIXER documented in this encounter Progress Notes Pete [...] is prone to typos and grammatical errors. MIXER documented in this encounter Plan of Treatment Scheduled Referrals Name Type Priority Associated Diagnoses Order S chedule PRE-OP PAIN CONSULT Referral Routine Pseudarthrosis after fusion Ordered: 01/17/2018 - ADULT or arthrodesis documented as of this encounter Procedures Procedure Name Priority Date/Time Associated Diagnosis Comme nts MRSA/MSSA PRE-OP Routine 01/17/2018 1:48 PM Pseudarthrosis aft er Results for this CULTURE SIZE MIXER fusion or arthrodesis proced ure are in the results section. documented in this encounter Results MRSA/MSSA Pre-Op Culture (01/17/2018 1:48 PM SIZE MIXER) Component Value Ref Test Analysis Performed At [facility] Range Method Time Signature Specimen Nose Swab [facility] Description LABORATORIES Special Unspecified [facility] [place] Culture No Staphylococcus [facility] aureus Isolated LABORATORIES Report Status 01/18/2018 [facility] [place] LAB[facility]ATORIES Specimen Anatomical Collection Method Collection Time Receive d Time (Source) Location / / Volume Laterality Nasal swab taken NASAL STRUCTURE / 01/17/2018 1:48 PM 01/17/2018 1:49 (situation) Unknown SIZE MIXER PM SIZE MIXER Pete Gonzalez MD LAB_1 Performing Organization Address City/State/ZIP Code Phon e Number [facility] [place] [facility] [phone] documented in this encounter Visit Diagnoses Diagnosis Pseudarthrosis after fusion or arthrodes is - Primary Arthrodesis status documented in this encounter Care Teams Fish Hatchery Worker Relationship Specialty Start Date End Date Jose Holden MD PCP - General Otolaryngology 12/14/17 [address] [place] [address] documented as of this encounter
--- OUTSIDE RECORDS SUMMARY | 2022-08-17 06:50 | XMS_ITS | Encounter Summary ---
:1965 Author Organization [facility] Address [address], [place] [address] Care Team Providers Name Role Phone Jose Holden MD Primary Care Provider [phone] Reason for Visit Auth/Cert Specialty Diagnoses / [...] Expiration Date Visits Requ ested Visits Authorized [id number] 1 1 Encounter Details Date Type Department Care Team Description 02/20/2018 [facility] Pete Gonzalez MD [address] [place] [address] [place] [address] [phone] (Wo rk) Social History Tobacco Use Types [...] on filedocumented in this encounter Care Teams Head Of Conservation Relationship Specialty Start Date End Date Jose Holden MD PCP - General Otolaryngology 12/14/[address] [place] [phone] (work) documented as of this encounter
--- OUTSIDE RECORDS SUMMARY | 2022-08-17 06:50 | XMS_ITS | Encounter Summary ---
:1965 [facility] Address [address], [place] [address] Care Team Providers Name Role Phone Jose Holden MD Primary Care Provider [phone] Encounter Details Date Type Department Care Team Description 02/13/2018 Orders Only External to Jose Holden MD [address] [place], [place] [address] (Wo rk) Social History [...] on filedocumented in this encounter Care Teams Applications Processor Relationship Specialty Start Date End Date Jose Holden MD PCP - General Otolaryngology 12/14/17 [address] [place] [address] documented as of this encounter
--- OUTSIDE RECORDS SUMMARY | 2022-08-17 06:50 | XMS_ITS | Encounter Summary ---
:1965 Author Organization [facility] Address [address] [place] [address] Care Team Providers Name Role Phone Jose Holden MD Primary Care Provider [phone] Reason for Visit Procedure/Equipment (Routine) - Incomplete Specialty Diagnoses / Procedures Referred By Contact Refer red To Contact Diagnoses Screening procedure Pseudarthrosis after fusion or arthrodesis Pete Gonzalez MD Procedures [place] Video Swallow Study [address] [place] [address] Referral ID Status Reason Start Date Expiration Date Visits V isits Requested Authorized [id number] Incomplete 11/29/2017 02/28/2019 1 1 Encounter Details Date Type Department Care Team Description 12/26/2017 Imaging [facility] MD Screening procedure; [facility] [address] [place], [place] [address]E Ps eudarthrosis after fusion or arthrodesis Radiology Fluoro S [address] [place] [address] [place] [address] [phone] (Wo rk) Social History Tobacco Use Types [...] Screening pr ocedure Results for this STUDY FIELD CASE MANAGER Pseudarthrosis after procedu re are in fusion or the results arthrodesis section. documented in this encounter Results FL Video Swallow Study (12/26/2017 1:03 PM FIELD CASE MANAGER) Anatomical Region Laterality Modality Neck, Chest Radio Fluoroscopy Specimen (Source) Anatomical Collection Method Collection Time Re ceived Time Location / / Volume Laterality 12/26/2017 1:03 PM FIELD CASE MANAGER Narrative 12/26/2017 6:00 PM FIELD CASE MANAGER FL VIDEO SWALLOW STUDY 12/26/2017 1:03 PM [...] for additional details. Pete Gonzalez MD RAD [place] documented in this encounter Visit Diagnoses Diagnosis Screening procedure Screening for unspecified condition Pseudarthrosis after fusion or arthrodes is Arthrodesis status documented in this encounter Administered Medications Inactive Administered Medications - up to 3 most recent administrations Medication Order MAR Action Action Date Dose Rate Site barium sulfate (EZ PAQUE) Given 12/26/2017 1:06 PM FIELD CASE MANAGER 200 mL suspension 200 mL 200 mL, Oral, ONCE (NON-SCHEDULED), Starting on Tue12/26/17 at 1305, For 1 dose barium sulfate (EZ-DISK) tablet 700 mg Given 12/26/2017 1:06 PM FIELD CASE MANAGER 700 mg 700 mg, Oral, ONCE (NON-SCHEDULED), Starting on Tue12/26/17 at 1305, Until Tue12/26/17 at 1306, For 1 dose barium sulfate (EZ-PASTE) oral cream 9 g Given 12/26/2017 1:06 PM FIELD CASE MANAGER 9 g 9 g (15 mL), Oral, ONCE (NON-SCHEDULED), Starting on Tue12/26/17 at 1305, For 1 dose barium sulfate (VARIBAR, TAGITOL V) 40 % Given 12/26/2017 1:06 P M FIELD CASE MANAGER 240 mL suspension 240 mL 240 mL, Oral, ONCE (NON-SCHEDULED), Starting on Tue12/26/17 at 1305, Until Tue02/20/18 at 1710, For 3 doses documented in this encounter Care Teams Shake Feeder Relationship Specialty Start Date End Date Jose Holden MD PCP - General Otolaryngology 12/14/17 [facility] [place] [address] documented as of this encounter
--- OUTSIDE RECORDS SUMMARY | 2022-08-17 06:50 | XMS_ITS | Encounter Summary ---
:1965 Author Organization [facility] Address [address] [place] [address] Care Team Providers Name Role Phone Jose Holden MD Primary Care Provider [phone] Reason for Visit Reason Comments Other Encounter Details Date Type Department Care Team Description 01/17/2018 [facility] Chava Simon RN Other Center Neurosurgery/ Ortho Spine [address] [place] [address]. [place] [address] Social History Tobacco Use Types [...] AM CST XR printed for patient to crop picker when she comes to clinic. Chava Simon RN 01/18/2018, 8:42 AM FILLER Michael Cruz - 01/17/2018 3:46 PM CST Patient called in stating she will drop off her CD in clinic tomorrow. However she wants to make sure RADHA Bowie also has a copy of her neck pictures ready for her as well. Patient states she had alreadyspoken to RADHA Bowie about this. Please advise Michael Cruz 01/17/2018, 3:47 PM FILLER documented in this encounter Plan of Treatment Not on filedocumented as of this encounter Visit Diagnoses Not on filedocumented in this encounter Care Teams Chrome Polisher Relationship Specialty Start Date End Date Jose Holden MD PCP - General Otolaryngology 12/14/17 [facility] [place] [address] documented as of this encounter
--- OUTSIDE RECORDS SUMMARY | 2022-08-17 06:50 | XMS_ITS | Encounter Summary ---
:1965 Author Organization [facility] Address [address] [place] [address] Care Team Providers Name Role Phone Jose Holden MD Primary Care Provider [phone] Reason for Visit Reason Comments CONSULT POPC-dos 02-20 w/Dr Gonzalez Encounter Details Date Type Department Care Team Description 02/13/2018 Office Visit [facility] Mc[facility] Raul Stover MD cervical region Management [address] without myelopathy or [address] [place], [place] radiculopathy ([place] [address] Dx) [phone] Social History Tobacco Use Types Packs/Day Years [...] some medicines that are opioids: ??? Hydrocodone ([place], Vicodin, Lortab) ??? Oxycodone (OxyContin, Percocet) ??? [...] before you use any other medicines, including lzwy-dnv-umjffft medicines. Make sure my care team knows [...] team or apharmacist. You can also visit [employer] or [employer] and search medicine disposalto learn about drug disposal. You may also call the Drug Enforcement Administration (BARBY) Office of Diversion Control's Registration Call Center at to find an authorized delinquent tax collector in your community. ??? If your [...] Content Version: 10.9 Custom: HP/PN 6-16 ?? [id number] [employer], [facility]. Stew Covarrubias MD [...] experiences A lot of 'bad' surgeries in [place] Past Medical History: Diagnosis Date ??? Acne ??? Allergy ??? Anxiety disorder (HRC) ??? Arthritis ??? Asthma (HRC) ??? Bipolar 1 disorder (HRC) ??? COPD (chronic obstructive pulmonary disease) (HRC) ??? Depression (HRC) ??? Ear infection ??? Infection of the inner ear, left ? ? Nausea & vomiting ??? Sinusitis No past surgical history on file. BONE WORKER Review: Allergies: Allergies Allergen Reactions ??? Adhesive [...] surgery Recommendations for opioids: If using a DIE TRIPPER: No oral opioids Start a DIE TRIPPER pump with Dilaudid continuous IV infusion at a basal rate of 0.1 mg/hr with DIE TRIPPER boluses of 0.2-0.4 mg every 10 minutes. If not using a DIE TRIPPER: Start dilaudid 2-4mg q3h prn (alternatively can [...] myelopathy documented in this encounter Care Teams Crystal Mounter Relationship Specialty Start Date End Date Jose Holden MD PCP - General Otolaryngology 12/14/17 [facility] [place] [address] documented as of this encounter
--- OUTSIDE RECORDS SUMMARY | 2022-08-17 06:50 | XMS_ITS | Encounter Summary ---
:1965 Author Organization [facility] Address [address] [place] [address] Care Team Providers Name Role Phone Jose Holden MD Primary Care Provider [phone] Encounter Details Date Type Department Care Team Description 02/07/2018 [facility] Chava Simon RN [place] Neurosurgery/ Ortho Spine [address] [place] [address]. [place] [address] Social History Tobacco Use Types [...] her pre-op is scheduled for 02/13/18 at [facility]. Clinic fax # was given. Patient will have clearance note faxed to clinic. Will post pone message to after the to check and see if pre-op has been received yet. Michael Cruz - 02/08/2018 1:37 PM CDT [facility] Michael Cruz 02/08/2018, 1:37 PM Michael Cruz Porfirio - 02/07/2018 11:27 AM CDT [facility] Michael Monroy Anthony 02/07/2018, 11:27 [...] on filedocumented in this encounter Care Teams Movement Assembler Relationship Specialty Start Date End Date Jose Holden MD PCP - General Otolaryngology 12/14/17 [facility] [place] [address] documented as of this encounter
--- OUTSIDE RECORDS SUMMARY | 2022-08-17 06:50 | XMS_ITS | Encounter Summary ---
:1965 [facility] Address [address], [place] [address] Care Team Providers Name Role Phone Jose Holedn MD Primary Care Provider [phone] Reason for Visit Therapies (Routine) - Closed Specialty Diagnoses / Procedures Referred By Contact Refer red To Contact Diagnoses Pseudarthrosis after fusion or arthrodesis Screening procedure Pete Gonzalez MD [address] [place] [address] Referral ID Status Reason Start Date Expiration Date Visits Requ ested Visits Authorized [id number] Closed 11/29/2017 01/28/2018 1 1 Encounter Details Date Type Department Care Team Description 12/26/2017 Office Visit Pete Orona MD [address] [place] [address] Pharyngeal dysphagia [facility] Kaykay Wyman ICEBOX WORKER [address] [place], [place] [id number] (Primary Dx) Speech Therapy [address] [place] [address]. [id number] [id number] Social History Tobacco Use Types Packs/Day Years Used Date Smoking Tobacco: Every Day Cigarettes 0.5 Smokeless Tobacco: Never Alcohol Use Standard Drinks/Week Comments No 0 (1 standard drink = 0.6 oz pure alcoho l) Sex Assigned at Date Recorded Not on file documented as of this encounter Patient Instructions Patient InstructionsKaykay Wyman SLP - 12/26/2017 12:30 PM [facility] EEL You had a swallow test today. I [...] sensation of food catching. Kaykay Monroy MA CCC/ICEBOX WORKER Speech-Language Pathologist M-F Office: [phone] ER EEL documented in this encounter Progress Notes Kaykay Wyman, ICEBOX WORKER - 12/26/2017 12:30 PM CST SPEECH LANGUAGE [...] food sticking, especially on textures that are transfer car operator drier (meats, breads, etc). I would anticipate [...] goals established as no further intervention from ICEBOX WORKER service is warranted at this time. VISIT [...] Total Treatment Time: 45 minutes Kaykay Monroy CCC-ICEBOX WORKER 12/26/2017 documented in this encounter Plan of Treatment Scheduled Referrals Name Type Priority Associated Diagnoses Order S chedule Speech Therapy Referral Routine Pseudarthrosis after fusio n or Ordered: 11/29/2017 arthrodesis Screening procedure documented as of this encounter Visit Diagnoses Diagnosis Pharyngeal dysphagia - Primary Dysphagia, pharyngeal phase documented in this encounter Care Teams Frame And Scrap Crusher Relationship Specialty Start Date End Date Jose Holden MD PCP - General Otolaryngology 12/14/17 [place] [address] documented as of this encounter
--- OUTSIDE RECORDS SUMMARY | 2022-08-17 06:50 | XMS_ITS | Encounter Summary ---
:1965 Author Organization [facility] Address [address] [address] Care Team Providers Name Role Phone Unassigned, Provider Primary Care Provider Unavailable Reason for Visit Procedure/Equipment (Routine) - Incomplete Specialty Diagnoses / Procedures Referred By Contact Refer red To Contact Diagnoses Screening procedure Pseudarthrosis after fusion or arthrodesis Pete Gonzalez MD Procedures XR Cervical Spine W Flex And Ext [address] [place] [address] Referral ID Status Reason Start Date Expiration Date Visits V isits Requested Authorized [id number] Incomplete 10/31/2017 01/30/2019 1 1 Encounter Details Date Type Department Care Team Description 11/29/2017 [facility] MD Screening procedure [facility] [address] [facility] [place], [place] [address] [address] [place] [address] [phone] Social History Tobacco Use Types Packs/Day Years [...] dure Results for this FLEX AND EXT ROUTEMAN procedure are i n the results section. documented in this encounter Results XR Cervical Spine W Flex And Ext (11/29/2017 9:54 AM ROUTEMAN) Anatomical Region Laterality Modality Spine, C-Spine, Neck Computed Radiograph y Specimen (Source) Anatomical Collection Method Collection Time Re ceived Time Location / / Volume Laterality 11/29/2017 9:54 AM ROUTEMAN Narrative 11/29/2017 10:59 AM ROUTEMAN XR CERVICAL SPINE W FLEX AND EXT [...] condition documented in this encounter Care Teams Quality Engineering Manager Relationship Specialty Start Date End Date Unassigned, Provider PCP - General 08/05/03 12/13/[address] [place] [id number] documented as of this encounter
--- OUTSIDE RECORDS SUMMARY | 2022-08-17 06:50 | XMS_ITS | Encounter Summary ---
:1965 Author Organization [facility] Address [address] [address] Care Team Providers Name Role Phone Jose Holden MD Primary Care Provider [phone] Reason for Visit Auth/Cert Specialty Diagnoses / [...] Expiration Date Visits Requ ested Visits Authorized [id number] 1 1 Encounter Details Date Type Department Care Team Description 02/20/2018 Surgery RH Operating Room Marky Gonzalez MD FUSION POSTERIOR [address] [place] [address] [place], [place] C2-T3, REMOVAL HARDWARE [phone] [id number] SPINE Anterior plate [phone] (Wo rk) and Posterior screws and rods [...] encounter Discharge Summaries Sneha Maher, Sirisha Celaya, DIRECTOR OF EVENTS, FINGERNAIL FORMER - 02/23/2018 9:09 AM CDT Neurosurgery Discharge [...] Hospital Course: Angie Bender was admitted to [facility] on 02/20/2018 following posterior C2-T3 with [...] 9.4 - 12.4 fl Narrative Performed at [facility], [address] [place] [address] Physical Exam: BP 124/78 Pulse 74 Temp [...] T1. 3. Intraoperative placement and removal of Taylor-Ludi tongs. 4. Hardware removal, C6-T1 posterior. 5. [...] in strength to your extremeties. Neurosurgery clinic [phone]. If it is after hours, please call [...] neurosurgery RN on 03/07 at 11AM at [address] [place] [address], 2nd floor. 2. Follow up with Dr. Gonzalez/Lois Pham PA-C/Sirisha Maher NP on 04/05 at 1:00PM at [address] [place] [address]. Patient also instructed to call clinic at [phone] or [facility] for any questions or concerns. Patient verbalizes understanding and states no further questions at this time. 3. Follow up with PCP for any medical issues Total time spent at the time of discharge was 30 minutes Sirisha Maher APRN, [place] Pgr#[phone] documented in this encounter Discharge Instructions Discharge InstructionsDonna Ellis RN - 02/23/2018 10:42 AM CDT [place] [address] General Information Discharging physician: Dr. Gonazlez [facility] Emergency & Urgently Needed Care: For emergencies call 911 and/or get medical help right away. If you are a [facility] member and have medical needs after clinic hours you may call the [facility] [phone] or . Fall Prevention Recommendations ??? Follow [...] Ellis RN - 02/23/2018 11:50 AM CDT [facility] Discharge Note - Nursing [...] End of Report --- Sirisha Rankin APRN, FINGERNAIL FORMER - 02/23/2018 9:02 AM CDT Neurosurgery Progress [...] Dc home today ?? Sirisha Maher APRN, FINGERNAIL FORMER 02/23/2018, 9:02 AM Neurosurgery Pgr#[phone] Jolene Kaur PA-C - 02/22/2018 12:45 PM [...] Lois Pham PA-C, 02/22/2018, 9:05 AM Neurosurgery [phone] He Reyes MD - 02/22/2018 8:29 AM [...] with any questionsor concerns. He Reyes M.D. [facility] [phone] INTERVAL HISTORY: She started tizanidine last night [...] TIME SPENT: 35 minutes including 50% time ikrz-yo-teul time counseling her about her diagnosis and treatment options, and coordinating care with the primary team. DECISION-MAKING: The level of decision-making in this case is high/complex due to the complexity of medical problems, acute/chronic pain, opioid analgesia issues, and behavioral factors. He Reyes M.D. Brooklyn Whittington - 02/21/2018 1:47 PM CDT [facility] Care Management Screening Admission Info: [...] see Dr Dr Estephanie Franz at [facility]. No DC needs anticipated. I verified the demographics on the face sheet for the correct address, phone number, emergency contact and PCP information. Brooklyn Whittington RN CM [phone] Lois Pham PA-C - 02/21/2018 9:23 AM CDT Neurosurgery Progress Note Date of service: 02/21/2018 Subjective: Feels sore. Upset she did not have ELECTRIC DEICER INSPECTOR overnight. Wants to go smoke. Wants to [...] there were a couple of options including ELECTRIC DEICER INSPECTOR vs IV pain medications for post op pain control, and rationale for non ELECTRIC DEICER INSPECTOR at this time. Did discuss that would not recommend DC as drain still has high output. Upright xrays prior to DC Up with assistance Continue hemovac until <30/shift Soft collar when OOB, PRN in bed for comfort PT/OT Dispo: Anticipate home in next 1-2 days pending drain output Lois Pham PA-C, 02/21/2018, 9:23 AM Neurosurgery [phone] He Reyes MD - 02/20/2018 1:20 PM [address] Note from Dr. Covarrubias on 02/13/18: ? 1. On the day of surgery please order an Inpatient pain consult 2. Ketamine 5mg/h during surgery ?? Recommendations for opioids: ?? If using a ELECTRIC DEICER INSPECTOR: No oral opioids Start a ELECTRIC DEICER INSPECTOR pump with Dilaudid continuous IV infusion at a basal rate of 0.1 mg/hr with ELECTRIC DEICER INSPECTOR boluses of 0.2-0.4 mg every 10 minutes. ?? If not using a ELECTRIC DEICER INSPECTOR: Start dilaudid 2-4mg q3h prn (alternatively can [...] Pham PA-C - 02/20/2018 3:24 PM CDT [facility] Brief Operative Progress Note Surgery Date: 02/20/2018 Surgeon(s) and Role: * Marky Gonzalez MD - Primary PHYSICIAN FEEDER OPERATOR AUTOMATIC-Meka Pham Pre-op Diagnosis: * Cervical spondylosis with [...] The procedure was medically necessary for an metal forger's assistant because Dr. Gonzalez needed the operative [...] Lois Pham PA-C, 02/20/2018, 3:25 PM Neurosurgery [phone] Marky Gonzalez MD - 02/20/2018 12:00 AM CDT ANGIE BENDER [facility]: [id number] OPERATIVE REPORT DATE OF SURGERY: 02/20/2018 : 1965 SURGEON: MARKY GONZALEZ MD FEEDER OPERATOR AUTOMATIC: Lois Pham PA-C. PREOPERATIVE DIAGNOSES: 1. Status [...] stepwise fashion using absorbable suture. We placed Taylor-Ludi tongs and then flipped the patient prone [...] all critical portions. MARKY GONZALEZ MD MMK/MODL /[id number] cc: MARKY GONZALEZ MD documented in this [...] the risk. She has been on these exterminator, desires to eventually come off. She [...] with any questionsor concerns. He Reyes M.D. [facility] [phone] HISTORY OF PRESENT ILLNESS: Per Chart Review: [...] - headache Opioid prescriber: LEDY Ojeda MD-valium [facility] database review: Risk Factors: History [...] MEDICATIONS: Current Facility-Administered Medications Ordered in [facility] Medication Dose Route Frequency Provider Last Rate [...] Lois Pham PA-C ??? glucose-ascorbic acid (aka [id number]) chewable tablet 4 Tab 4 Tab Oral [...] TIME SPENT: 70 minutes including 50% time egvt-us-qqew time counseling her about her diagnosis and treatment options, and coordinating care with the primary team. DECISION-MAKING: The level of decision-making in this case is high/complex due to the complexity of medical problems, acute/chronic pain, opioid analgesia issues, and behavioral factors. documented in this encounter Miscellaneous Notes OR Nursing - Monica Pate, RN - 02/20/2018 2:49 PM CDT [facility] Progress Note Patient Name: [...] failure. Anatomic alignment. Shoulder prosthesis. Sirisha Maher DIRECTOR OF EVENTS, FINGERNAIL FORMER RAD GD (ABNORMAL) Complete Blood Count-No Diff (02/22/2018 12:36 PM CDT) athologist Signature WBC 10.2 4.0 - 11.0 [facility] RBC 3.36 (L) 4.0 - 5.2 [facility] Hemoglobin 11.1 (L) 12.0 - 16.0 [facility] g/dl [facility] HCT 33.2 (L) 36.0 - 46.0 [facility] MCV 98.8 80 - 100 fl [facility] MCH 33.0 26 - 34 pg [facility] MCHC 33.4 32 - 36 [facility] g/dl [facility] RDW 14.4 11.5 - 14.5 [facility] Platelets 183 150 - 450 [facility] MPV 10.6 9.4 - 12.4 [facility] Specimen Anatomical Collection Method Collection Time Receive d Time (Source) Location / / Volume Laterality 02/22/2018 12:36 02/22/2018 PM CDT 12:37 PM CDT Narrative [facility] - 02/22/2018 12:46 PM C DT Performed at [facility] , [address] [place] [address] Lois Pham PA-C LAB_1 Performing Organization Address City/State/ZIP Code Phon e Number [facility] [address] [place] [address] [address], [facility] XR Cervical Spine AP/Lat Upright (02/21/2018 [...] Marky Gonzalez MD LAB_1 Performing Organization Address City/[facility] Phon e Number [address] [address] [place] [address], [facility] (ABNORMAL) Basic Metabolic Panel (02/21/2018 7:12 [...] Est., If >60 >60 [facility] Black ml/min/1.7 [facility] 3m2 Specimen Anatomical Collection Method Collection Time Receive d Time (Source) Location / / Volume Laterality 02/21/2018 7:12 AM 8 7:13 CDT AM CDT Narrative [facility] - 02/21/2018 7:47 AM CD T Performed at [facility] , [address] [place] [address] Lois Pham PA-C LAB_1 Performing Organization Address [facility]/ZIP [facility] Phon e Number [address] [address] [place] [address], [facility] (ABNORMAL) Hemogram with Plts (02/21/2018 7:12 AM CDT) athologist Signature WBC 10.0 4.0 - 11.0 [facility] RBC 3.29 (L) 4.0 - 5.2 [facility] Hemoglobin 10.7 (L) 12.0 - 16.0 [facility] g/dl HOSPITAL HCT 32.2 (L) 36.0 - 46.0 [facility] MCV 97.9 80 - 100 fl [facility] MCH 32.5 26 - 34 pg [facility] MCHC 33.2 32 - 36 [facility] g/dl HOSPITAL RDW 13.9 11.5 - 14.5 [facility] Platelets 186 150 - 450 [facility] MPV 10.3 9.4 - 12.4 [facility] Specimen Anatomical Collection Method Collection Time Receive d Time (Source) Location / / Volume Laterality 02/21/2018 7:12 AM 8 7:13 CDT AM CDT Narrative [facility] - 02/21/2018 7:26 AM CD T Performed at [facility] , [address] [place] [address] Lois Pham PA-C LAB_1 Performing Organization Address City/[facility] Phon e Number [address] [address], [facility] Glucose, Whole Blood POC (02/20/2018 11:20 PM CDT) athologist Signature Glucose, Whole 140 70 - 180 [facility] Blood mg/dl [facility] Comment: Point of Care Testing No Action Required Specimen Anatomical Collection Method Collection Time Receive d Time (Source) Location / / Volume Laterality 02/20/2018 11:20 02/20/2018 PM CDT 11:26 PM CDT Marky Gonzalez MD LAB_1 Performing Organization Address City/[facility] Phon e Number [address] [address], [facility] Glucose, Whole Blood POC (02/20/2018 5:05 PM CDT) athologist Signature Glucose, Whole 145 70 - 180 [facility] Blood mg/dl [facility] Comment: Point of Care Testing No Action Required Specimen Anatomical Collection Method Collection Time Receive d Time (Source) Location / / Volume Laterality 02/20/2018 5:05 PM 8 5:25 CDT PM CDT Marky Gonzalez MD LAB_1 Performing Organization Address City/State/ZIP Code Phon e Number [address] [address], [facility] Glucose, Whole Blood POC (02/20/2018 3:45 PM CDT) athologist Signature Glucose, Whole 145 70 - 180 [facility] Blood mg/dl HOSPITAL Comment: Point of Care Testing No Action Required Specimen Anatomical Collection Method Collection Time Receive d Time (Source) Location / / Volume Laterality 02/20/2018 3:45 PM 8 3:52 CDT PM CDT Marky Gonzalez MD LAB_1 Performing Organization Address City/[facility]/ZIP Code Phon e Number [address] [address], [facility] XR C-Arm 0-30 Minutes (02/20/2018 2:05 PM CDT) Anatomical Region Laterality Modality Other Specimen (Source) Anatomical Location Collection Method / Collectio n Time Received Time / Laterality Volume Narrative 02/20/2018 2:06 PM CDT Fluoroscopy provided by a human performance technologist. Exact fluoroscopy time is documented in end of exam information in EPIC Marky Gonzalez MD RAD GD XR C-Arm 2.5-3 Hours (02/20/2018 12:45 PM CDT) Anatomical Region Laterality Modality Other Specimen (Source) Anatomical Location Collection Method / Collectio n Time Received Time / Laterality Volume Narrative 02/20/2018 12:45 PM CDT Fluoroscopy provided by a human performance technologist. Exact fluoroscopy time is documented in end of exam information in EPIC Marky Gonzalez MD RAD GD XR C-Arm 30-59 Minutes (02/20/2018 12:36 PM CDT) Anatomical Region Laterality Modality Other Specimen (Source) Anatomical Location Collection Method / Collectio n Time Received Time / Laterality Volume Narrative 02/20/2018 12:36 PM CDT Fluoroscopy provided by a human performance technologist. Exact fluoroscopy time is documented in end of exam information in EPIC Marky Gonzalez MD RAD GD Glucose, Whole Blood POC (02/20/2018 9:02 AM CDT) athologist Signature Glucose, Whole 135 70 - 180 [facility] Blood mg/dl [facility] Comment: Point of Care Testing RN Notified Specimen Anatomical Collection Method Collection Time Receive d Time (Source) Location / / Volume Laterality 02/20/2018 9:02 AM 8 9:08 CDT AM CDT Marky Gonzalez MD LAB_1 Performing Organization Address City/[facility]/ZIP Code Phon e Number [address] [address] [place] [address], [facility] Glucose, Whole Blood POC (02/20/2018 6:25 AM CDT) athologist Signature Glucose, Whole 90 70 - 180 [facility] Blood mg/dl [facility] Specimen Anatomical Collection Method Collection Time Receive d Time (Source) Location / / Volume Laterality 02/20/2018 6:25 AM 8 6:34 CDT AM CDT Marky Gonzalez MD LAB_1 Performing Organization Address City/[facility]/ZIP Code Phon e Number [address] [address], [facility] ABO/RH(D) Retype (02/20/2018 6:22 AM CDT) athologist Signature ABO/RH(D) A NEGATIVE [facility] Specimen Anatomical Collection Method Collection Time Receive d Time (Source) Location / / Volume Laterality 02/20/2018 6:22 AM 8 6:25 CDT AM CDT Narrative [facility] - 02/20/2018 7:06 AM CD T Performed at [facility] , [address] [place] [address] Marky Gonzalez MD LAB_1 Performing Organization Address City/[facility]/ZIP Code Phon e Number [address] [address], [facility] [phone] INR/Protime (PT/INR) (02/20/2018 6:08 AM CDT) P athologist Signature Protime 13.0 12.0 - 14.5 [facility] INR 1.0 0.9 - 1.1 [facility] Specimen Anatomical Collection Method Collection Time Receive d Time (Source) Location / / Volume Laterality 02/20/2018 6:08 AM 8 6:22 CDT AM CDT Narrative [facility] - 02/20/2018 6:40 AM CD T Performed at [facility] , [address] [place] [address] Sirisha Maher APRN, CNP LAB_1 Performing Organization Address City/[facility] Phon e Number [address] [address] [place] [address], [facility] [phone] Hemogram with Platelets (02/20/2018 6:08 AM CDT) P athologist Signature WBC 6.7 4.0 - 11.0 [facility] RBC 4.13 4.0 - 5.2 [facility] Hemoglobin 13.5 12.0 - 16.0 [facility] gdl [facility] HCT 39.8 36.0 - 46.0 [facility] MCV 96.4 80 - 100 [facility] MCH 32.7 26 - 34 pg [facility] MCHC 33.9 32 - 36 [facility] RDW 13.8 11.5 - 14.5 [facility] Platelets 245 150 - 450 [facility] MPV 10.6 9.4 - 12.4 [facility] Specimen Anatomical Collection Method Collection Time Receive d Time (Source) Location / / Volume Laterality 02/20/2018 6:08 AM 8 6:22 CDT AM CDT Narrative [facility] - 02/20/2018 6:32 AM CD T Performed at [facility] , [address] [place] [address] Sirisha Maher APRN, FINGERNAIL FORMER LAB_1 Performing Organization Address City/[facility]/ZIP [facility] Phon e Number [address] [address], [facility] (ABNORMAL) Basic Metabolic Panel (02/20/2018 6:08 AM CDT) athologist Signature Sodium 139 136 - 145 [facility] mmol/L [facility] Potassium 4.4 3.5 - 5.1 [facility] mmol/L HOSPITAL Comment: Specimen Slightly Hemolyzed Hemolysis May Affect Result Chloride 109 98 - 109 mmol/L [facility] AL CO2 18 (L) 20 - 29 mmol/L [facility] L Anion Gap (calc.) 12 7 - 16 mmol/L [facility] Glucose 96 70 - 180 mg/dl [facility] L Calcium 9.4 8.4 - 10.2 mg/dl [facility] EHSAN BUN 14 7 - 26 mg/dl [facility] Creatinine 0.69 0.55 - 1.02 mg/dl [facility] GFR, Estimated >60 >60 ml/min/1.73m2 [facility] GFR, Est., If Black >60 >60 ml/min/1.73m2 [facility] Specimen Anatomical Collection Method Collection Time Receive d Time (Source) Location / / Volume Laterality 02/20/2018 6:08 AM 8 6:22 CDT AM CDT Replaced by [facility] - 02/20/2018 6:52 AM CD T Performed at [facility] , [address] [place] [address] Sirisha Maher APRN, FINGERNAIL FORMER LAB_1 Performing Organization Address City/State/ZIP Code Phon e Number [address] [address], [facility] aPTT (Activated Partial Thromboplastin Time) (02/20/2018 6:08 AM CDT) athologist Signature PTT 26.8 24.0 - 37.0 [facility] sec [facility] Specimen Anatomical Collection Method Collection Time Receive d Time (Source) Location / / Volume Laterality 02/20/2018 6:08 AM 8 6:22 CDT AM CDT Replaced by [facility] - 02/20/2018 6:40 AM CD T Performed at [facility] , [address] [place] [address] Sirisha Celaya Sneha Maher APRN, FINGERNAIL FORMER LAB_1 Performing Organization Address City/[facility]/ZIP Code Phon e Number [address] [address], [facility] ABO Rh & Antibody Screen (Type & Screen) (02/20/2018 6:07 AM CDT) [facility] gist Method Time Signature Crossmatch 02/23/2018 [facility] ABO/RH(D) A NEGATIVE [facility] Antibody NEGATIVE [facility] Screen HOSPITAL Specimen Anatomical Collection Method Collection Time Receive d Time (Source) Location / / Volume Laterality 02/20/2018 6:07 AM 8 6:22 CDT AM CDT Narrative [facility] - 02/20/2018 7:10 AM CD T Performed at [facility] , [address] [place] [address] Sirisha Maher APRN, FINGERNAIL FORMER LAB_1 Performing Organization Address City/[facility] Phon e Number [address] [address], [facility] EKG IP (02/20/2018 12:00 AM CDT) Specimen (Source) Anatomical Location Collection Method / Collectio n Time Received Time / Laterality Volume 02/20/2018 Narrative This result has an attachment that is no t available. Provider [facility] EKG documented in this encounter Visit Diagnoses [...] Segura, RN - 02/23/2018 9:57 AM CDT [facility] Plan of Care Note [...] Carbajal RN - 02/23/2018 7:43 AM CDT [facility] Plan of Care Note [...] Rico RN - 02/22/2018 10:15 PM CDT [facility] Plan of Care Note [...] Rico RN - 02/22/2018 4:00 PM CDT [facility]. MD Notified Note Name of MD notified: Ankit Time of MD notification: 1600 hours and 1 minute Reason: Pt.asking for valium now and current order for HS prn. plz review. [id number]. Response: Valium one time dose now and HS prn. Shawn Butcher RN --- End of Report --- Plan of Care - Alec Gifford RN - 02/22/2018 1:57 PM CDT [facility] Plan of Care Note [...] Lundberg RN - 02/22/2018 2:32 AM CDT [facility] Plan of Care Note [...] Orellana RN - 02/22/2018 12:33 AM CDT [facility] Plan of Care Note [...] Gifford RN - 02/21/2018 1:41 PM CDT [facility] Plan of Care Note [...] Lundberg RN - 02/21/2018 4:56 AM CDT [facility]. MD Notified Note Name of MD notified: Neurosurg Time of MD notification: 0400 hours and 55 minutes Reason: [id number]- Pt reporting oral/IV pain meds ineffective. Pt upset, req further intervention. Please advise. Thanks. Response: Discussed w/ neurosurg. To be addressed in AM and PRNs to continue to be administered as able. Anita Lundberg RN --- End of Report --- Plan of Care - Anita Lundberg RN - 02/21/2018 2:26 AM CDT [facility] Plan of Care Note [...] and Signs and Symptoms Outcome: Progressing 02/20/18 1846 Pain, Acute Related Risk Factors (Acute Pain) surgery;procedure/treatment;persistent pain;disease process Signs and Symptoms (Acute Pain) alteration in muscle tone;sleep pattern alteration;verbalization of pain descriptors;questions meaning of pain;pacing/restlessness Goal: Acceptable Pain Control/Comfort Level 02/20/18 2356 Pain, Acute (Adult) Acceptable Pain Control/Comfort Level unable to achieve outcome Comments: [facility] Plan of Care Note Assessment: posterior neck pain worst than anterior Plan: IHR, assessment, pain control Subjective: I thought that I was going to be on a dilaudid drip Objective: Pt angry that she was not on a ELECTRIC DEICER INSPECTOR pump, Dilaudid PO and IV given q3h, [...] 10:32 AM CDT 2 Patches lidocaine-epinephrine 1 %-1:[id number] injec tion Given 02/20/2018 10:21 AM CDT [...] Gifford RN) 0743 (Given - Provider: Alec Gfiford RN) 0820 (Given - Provider: Marlen Segura [...] Provider: Anita Lundberg RN)1028 (Given - Provider: Alce Gifford, RADHA) 0.2-0.4 mg, Intravenous, Q3H PRN, [...] Provider: Judith Orellana RN)2318 (Given - Provider: Judtih Orellana RN) 1740 (Given - Provider: Shawn [...] HS
documented in this encounter Care Teams [employer] Relationship Specialty Start Date End Date Jsoe Holden MD PCP - General Otolaryngology 12/14/[address] [place] [address] documented as of this encounter
--- OUTSIDE RECORDS SUMMARY | 2022-08-17 06:50 | XMS_ITS | Encounter Summary ---
:1965 Author Organization [facility] Address [address] [address] Care Team Providers Name Role Phone Jose Holden MD Primary Care Provider [phone] Reason for Visit Reason Comments QUESTIONS, GENERAL Encounter Details Date Type Department Care Team Description 01/25/2018 Telephone [facility] Pete Gonzalez MD QUESTIONS, GENERAL [facility] [address] [facility] Neurosurgery/Ortho [address] [place], [place] [address] [address] [place] [address] [phone] Social History Tobacco Use Types Packs/Day Years [...] she should receive a call from the rehabilitation aide/scheduler in the next 1-3 weeks to discuss her surgery/date. Patient stated understanding and will call with any updates or changes. Chava Simon RN 01/25/2018, 11:04 AM M BOX OPERATOR Gi De La Vega 01/25/2018 10:56 AM CST Patient calling to speak to RN. Regarding her MRI scan. M BOX OPERATOR documented in this encounter Plan of Treatment Not on filedocumented as of this encounter Visit Diagnoses Not on filedocumented in this encounter Care Teams Director Religious Education Relationship Specialty Start Date End Date Jose Holden MD PCP - General Otolaryngology 12/14/[address] [place] [address] documented as of this encounter
--- OUTSIDE RECORDS SUMMARY | 2022-08-17 06:50 | XMS_ITS | Encounter Summary ---
:1965 Author Organization [facility] Address [address] [place] [address] Care Team Providers Name Role Phone Jose Holden MD Primary Care Provider [phone] Encounter Details Date Type Department Care Team Description 02/14/2018 [facility] Chava Simon, RN [place] Spine [address] [place] [address] Social History Tobacco Use Types Packs/Day [...] if we have received her preop yet. Bobbin Fixer relayed we have not. Patient was given [phone] to have preop be faxed to us. Patient states she already talked to them and they said they already sent it but she will reach out to them again. Will await a return call from patient/watch out for fax. Michael Cruz 02/14/2018, 10:06 AM Chava Simon RN - 02/14/2018 9:11 AM CDT I still have not received patient's preop from [facility]. Could you please call patient and make sure she has had it faxed to us? Chava Simon RN 02/14/2018, 9:11 AM documented in this encounter Plan of Treatment Not on filedocumented as of this encounter Visit Diagnoses Not on filedocumented in this encounter Care Teams Stitcher Special Machine Relationship Specialty Start Date End Date Jose Holden MD PCP - General Otolaryngology 12/14/17 [facility] [place] [address] documented as of this encounter
--- OUTSIDE RECORDS SUMMARY | 2022-08-17 06:51 | XMS_ITS | Encounter Summary ---
:1965 Author Organization [facility] Address [address] [place] [address] Care Team Providers Name Role Phone Elsewhere, Pcp Primary Care Provider Unavailable Reason for Visit Appointment Request (Routine) - Closed Specialty Diagnoses / Procedures Referred By Contact Refer red To Contact Orthopedic Surgery Diagnoses Aftercare Total Shoulder Arthroplasty Referral ID Status Reason Start Date Expiration Date Visits Requ ested Visits Authorized [id number] Closed 06/23/2022 06/23/2023 1 1 Encounter Details Date Type Department Care Team Description 06/29/2022 Office Visit Department of Cyrus Polk Left Orthopedic Surgery in [place] (Primary Dx) [place], [place] [address] [place] [address] 200 [place] [address] [phone] Social History Tobacco Use Types Packs/Day Years [...] you attend sabianism or Patient refused 2021 yarsani services? Do [...] is dismissed to follow up through the [facility], Department of Orthopedic Surgery Total Joint Registry. All questions answered. DIAGNOSES #1 Status post shoulder arthroplasty documented in this encounter Plan of Treatment Upcoming Encounters Date Type Specialty Care Team Description 09/01/2022 Clinical Communication Admitting/Central Scheduling 09/06/2022 Appointment Radiology Alfredo Herrera O.P.A.-C. [address] [place] [address] 09/06/2022 Office Visit Orthopedic Surgery Cyrus Polk M.D. [address] [place] [address] documented as of this encounter Visit Diagnoses Diagnosis Pain Shoulder Left - Primary documented in this encounter Additional Health Concerns Assessment Noted Time PHQ-9 Depression Total Score: 16 02/11/2021 12:00 AM C DT documented as of this encounter Care Teams Information Technology Administrator Relationship Specialty Start Date End Date Elsewhere, Pcp PCP - General Family Medicine 12/25/21 documented as of this encounter
--- OUTSIDE RECORDS SUMMARY | 2022-08-17 06:51 | XMS_ITS | Encounter Summary ---
:1965 Author Organization [facility] Address [address] [place] [address] Care Team Providers Name Role Phone Elsewhere, Pcp Primary Care Provider Unavailable Reason for Visit Reason Onset Date Comments Left Without Being Seen 07/22/2022 Physical Therapy (Routine) - Authorized Specialty Diagnoses / Procedures Referred By Contact Refer red To Contact Diagnoses Aftercare Total Shoulder Arthroplasty Flavia Broderick M.D. [facility] Procedures PT or OT eval and treat (first available) Referral ID Status Reason Start Date Expiration Date Visits V isits Requested Authorized [id number] Authorized 06/23/2022 06/23/2023 99 99 Encounter Details Date Type Department Care Team Description 06/29/2022 Comprehensive Visit Department of Physical Juaquin Broderick M.D. Procedure And Treatment Not Carried Out Due To Patient Leaving Prior To Being Seen By Health Care Provider (Primary Dx); Medicine and Jessie Faye M.S., O.T. 200 [place] [address] Aftercare Total Shoulder Arthroplasty Rehabilitation in [place], [place] [address] [place] [address] Social History Tobacco Use Types Packs/Day Years [...] you attend yazdanism or Patient refused 2021 moravian services? Do you belong to any clubs or No 05/17/2022 organizations such as yazdanism groups, unions, fraTwist and Shout or athletic groups, or school groups? How [...] X-ray and Dr. Polk. Patient arrived at [facility] 15 desk and was rescheduled. documented in this encounter Plan of Treatment Upcoming Encounters Date Type Specialty Care Team Description 09/01/2022 Clinical Communication Admitting/Central Scheduling 09/06/2022 Appointment Radiology Alfredo Herrera O.P.A.-C. [address] [place] [address] 09/06/2022 Office Visit Orthopedic Surgery Cyrus Polk M.D. [address] [place] [address] documented as of this encounter Visit Diagnoses Diagnosis Procedure And Treatment Not Carried Out Due To Patient Leaving Prior To Being Seen By Health Care Provider - Primary Aftercare Total Shoulder Arthroplasty documented in this encounter Additional Health Concerns Assessment Noted Time PHQ-9 Depression Total Score: 16 02/11/2021 12:00 AM C DT documented as of this encounter Care Teams Repairer Finished Metal Relationship Specialty Start Date End Date Elsewhere, Pcp PCP - General Family Medicine 12/25/21 documented as of this encounter
--- OUTSIDE RECORDS SUMMARY | 2022-08-17 06:51 | XMS_ITS | Encounter Summary ---
:1965 Author Organization [facility] Address [address] [place] [address] Care Team Providers Name Role Phone Unassigned, Provider Primary Care Provider Unavailable Encounter Details Date Type Department Care Team Description 11/04/2005 [facility] Curtis Antoine Op Report-Archive [address] StreetBritton García [place] [address] [address] [facility] [phone] [place] [address] Social History Tobacco Use Types Packs/Day Years Used Date Smoking Tobacco: Never Assessed Sex Assigned at Date Recorded Not on file documented as of this encounter Plan of Treatment Not on filedocumented as of this encounter Visit Diagnoses Not on filedocumented in this encounter Care Teams Packaging Line Operator Relationship Specialty Start Date End Date Unassigned, Provider PCP - General 08/05/03 12/13/17 [address] [place] [address] documented as of this encounter
--- OUTSIDE RECORDS SUMMARY | 2022-08-17 06:51 | XMS_ITS | Encounter Summary ---
:1965 Author Organization [facility] Address [address] [place] [address] Care Team Providers Name Role Phone Elsewhere, Pcp Primary Care Provider Unavailable Reason for Visit Reason Comments Medication Question Encounter Details Date Type Department Care Team Description 06/21/2022 Clinical Communication RST ANDREW Pollard, Medication Question [address] [facility] Lilian Hughes [place], [place] 200 [facility] [address] [place] [address] Social History Tobacco Use Types Packs/Day Years [...] you attend orthodox or Patient refused 2021 synagogue services? [...] 1:12 PM CDT Prescriptions are sent to [facility] Telephone Encounter - Brenda Wright - 06/23/2022 3:02 PM CDT The patient called again re: her pregabalin prescription. She did not pick it up at the hospital pharmacy since she did not know it was there. Her regular pharmacy is [facility] in [place]. A newprescription needs to be sent to [facility] in [place]. The patient is out of this medication. Please call the patient if any questions: . She has been calling and has not heard from anyone re: this. Maritza Jefferson [phone] Patient is saying that she never was told to draft roller picker the following prescription when she was discharged on 06/17: pregabalin (LYRICA) 300 mg capsule Please send new prescription to [facility] in [place], [place] Please call patient if there are any questions. Brenda Jefferson [phone] documented in this encounter Plan of Treatment Upcoming Encounters Date Type Specialty Care Team Description 09/01/2022 Clinical Communication Admitting/Central Scheduling 09/06/2022 Appointment Radiology Alfredo Herrera O.P.A.-C. [address] [place] [address] 09/06/2022 Office Visit Orthopedic Surgery Cyrus Polk M.D. [address] [place] [address] documented as of this encounter Visit Diagnoses Not on filedocumented in this encounter Additional Health Concerns Assessment Noted Time PHQ-9 Depression Total Score: 16 02/11/2021 12:00 AM C DT documented as of this encounter Care Teams Syrup Blender Relationship Specialty Start Date End Date Elsewhere, Pcp PCP - General Family Medicine 12/25/21 documented as of this encounter
--- OUTSIDE RECORDS SUMMARY | 2022-08-17 06:51 | XMS_ITS | Encounter Summary ---
:1965 Author Organization [facility] Address [address] [place] [address] Care Team Providers Name Role Phone Elsewhere, Pcp Primary Care Provider Unavailable Reason for Visit Reason Comments Med Refill Encounter Details Date Type Department Care Team Description 07/19/2022 Refill Division of [facility] Internal H Hoda parmar M.D. Med Refill Medicine, [facility], [place] [address] [place] [address] [place], [place] [address] [phone] Social History Tobacco Use Types Packs/Day Years [...] you attend scientologist or Patient refused 2021 nondenominational services? Do [...] Appointment Radiology Alfredo Herrera O.P.A.-C. [address] [place] [address] 09/06/2022 Office Visit Orthopedic Surgery Cyrus Polk M.D. [address] [place] [address] documented as of this encounter Visit Diagnoses Not on filedocumented in this encounter Additional Health Concerns Assessment Noted Time PHQ-9 Depression Total Score: 16 02/11/2021 12:00 AM C DT documented as of this encounter Care Teams Net Solutions Architect Relationship Specialty Start Date End Date Elsewhere, Pcp PCP - General Family Medicine 12/25/21 documented as of this encounter
--- OUTSIDE RECORDS SUMMARY | 2022-08-17 06:51 | XMS_ITS | Encounter Summary ---
:1965 Author Organization [facility] Address [address], [place] [address] Care Team Providers Name Role Phone Unassigned, Provider Primary Care Provider Unavailable Reason for Referral Procedure/Equipment (Routine) - Incomplete Specialty Diagnoses / Procedures Referred By Contact Refer red To Contact Diagnoses Screening procedure Pseudarthrosis after fusion or arthrodesis Pete Gonzalez MD Procedures FL Video Swallow Study [address] [place] [address] Referral ID Status Reason Start Date Expiration Date Visits V isits Requested Authorized [id number] Incomplete 11/29/2017 02/28/2019 1 1 herapies (Routine) - Closed Specialty Diagnoses / Procedures Referred By Contact Refer herson To Contact Diagnoses Pseudarthrosis after fusion or arthrodesis Screening procedure Pete Gonzalez MD [address] [place] [address] Referral ID Status Reason Start Date Expiration Date Visits Requ ested Visits Authorized [id number] Closed 11/29/2017 01/28/2018 1 1 Scheduling Instructions Your provider has recommended an appoint ment with a [facility] Speech [facility]rap[facility]. Please stop at the clinic check out desk for as sistance with scheduling or if you prefer to call for your appointment you may call [facility] at [phone]. We suggest you call your [facility] insurance company about your coverage and benefits for this appointment. SAWMILL OPERATOR Consult/Transfer Care (Routine) - Closed Specialty Diagnoses / Procedures Referred By Contact Refer red To Contact Diagnoses Pseudarthrosis after fusion or arthrodesis Screening procedure Pete Gonzalez MD [address] [place] [address] Referral ID Status Reason Start Date Expiration Date Visits Requ ested Visits Authorized [id number] Closed 11/29/2017 02/28/2019 1 1 Scheduling Instructions Your provider has recommended an appoint ment with [facility]. You may call [phone], optio n [phone], to schedule your appointment. If you prefer, a monument stonecutter will contact you heena hebert the next 3 business days to assist you in setting up this appointment. We suggest you call your health insurance company about your coverage and benefits for this appo intment. SAWMILL OPERATOR Procedure/Equipment (Routine) - Incomplete Specialty Diagnoses / Procedures Referred By Contact Refer red To Contact Diagnoses Screening procedure Pseudarthrosis after fusion or arthrodesis Pete Gonzalez MD Procedures XR Cervical Spine W Flex And Ext [address] [place] [address] Referral ID Status Reason Start Date Expiration Date Visits V isits Requested Authorized [id number] Incomplete 10/31/2017 01/30/2019 1 1 SAWMILL OPERATOR Reason for Visit Reason Comments SECOND OPINION Consult/Transfer Care (Routine) - Closed Specialty Diagnoses / Procedures Referred By Contact Refer red To Contact Neurosurgery Ihsan Brooke MD [facility] Neurosurgery/Ortho [address] [place] [address] [place] [address]. [place] [address] Phone: Fax: Referral ID Status Reason Start Date Expiration Date Visits Requ ested Visits Authorized [id number] Closed 09/26/2017 12/26/2018 1 1 Encounter Details Date Type Department Care Team Description 11/29/2017 Office Visit [facility] Pete Gonzalez, Pseudarthr osis after fusion or arthrodesis (Primary Dx); [facility] Cervical spondylosis with radiculopathy; Neurosurgery/Ortho [address] [place] Bilater al occipital neuralgia; [address] Screening procedure [address] [place] [address] [place] [address] [phone] Social History Tobacco Use Types Packs/Day Years Used Date Smoking Tobacco: Every Day Cigarettes 0.5 Smokeless Tobacco: Never Alcohol Use Standard Drinks/Week Comments No 0 (1 standard drink = 0.6 oz pure alcoho l) Sex Assigned at Date Recorded Not on file documented as of this encounter Last Filed Vital Signs Vital Sign Reading Time Taken Comments Blood Pressure 126/77 11/29/2017 10:21 AM BAND SAWMILL OPERATOR Pulse 77 11/29/2017 10:21 AM BAND SAWMILL OPERATOR Temperature - - Respiratory Rate - - Oxygen Saturation - - Inhaled Oxygen Concentration - - Weight 75.4 kg (166 lb 3.2 oz) 11/29/2017 10:21 AM BAND SAWMILL OPERATOR Height 152.4 cm (5') 11/29/2017 10:21 AM BAND SAWMILL OPERATOR Body Mass Index 32.46 11/29/2017 10:21 AM BAND SAWMILL OPERATOR documented in this encounter Patient Instructions Patient InstructionsChava Simon RN - 11/29/2017 10:00 AM CST [facility] Patient Instructions Tests: You will be [...] your understanding. Please call the Neurosurgery Center [phone] with any further questions or concerns or if your symptoms worsen. Thank you for coming to see us today. We are your partner. SAWMILL OPERATOR documented in this encounter Progress Notes Lois [...] after C3-T1 posterior cervical fusion done at [facility] in [place] multiple years ago. The T1 screws are [...] on fentanyl, ms contin and oxycontin in [place]. PSURGHX:No past surgical history on file. PMEDHX:No past medical history on file. MEDICATIONS: Outpatient Prescriptions as of 11/29/2017: benzonatate (TESSALON) 100 MG capsule Take 100 mg by mouth. Note (11/29/2017): Received from: [facility] Received Sig: Take 1 capsule by mouth 3 times daily if needed for Cough. Disp: Rfl: budesonide-formoterol (SYMBICORT) 160-4.5 MCG/ACT inhaler Inhale 2 Puffs. Note (11/29/2017): Received from: [facility] Received Sig: INHALE 2 PUFFS BY [...] mEq by mouth. Note (11/29/2017): Received from: [facility] Received Sig: Take 20 mEq by mouth [...] Tab by mouth. Note (11/29/2017): Received from: [facility] Received Sig: Take 1 tablet bymouth [...] on file ROS: Reviewed per [facility] Neurosurgery New Patient Health Packet History was [...] 4/5 C7 Triceps: 5/5 4/5 C8 Finger flexors/formal service waiter: 5/5 5/5 T1 Intrinsics: 5/5 5/5 Sensation: Intact with light touch bue/ble. Skin: Warm to touch to bilateral upper/lower extremities. No skin rashes or lesions noted RADIOLOGY: Personally reviewed CT scans from OSH as well as XR from here. No formal report for either available. Shows previous C3-T1 posterior fusion, appears fused C3-C6, screws at T1 appear lose. K1perymo through the facet joint. ASSESSMENT: 52 year old female s/p multiple previous cervical spine surgeries including C3-T1 posterior fusion (done in [place] approx 6 years ago), with C6-T1 pseudoarthrosis, [...] of the chart to: Ihsan Brooke MD [address] [id number] Lois Pham PA-C, 11/29/2017, 12:34 PM SAWMILL OPERATOR documented in this encounter Plan of Treatment Scheduled Referrals Name Type Priority Associated Diagnoses Order S chedule Otolaryngology Consult Referral Routine Pseudarthrosis aft er Ordered: Adult/Peds fusion or arthro desis 11/29/2017 Screening procedure Speech Therapy Referral Routine Pseudarthrosis after Order ed: fusion or arthro desis 11/29/2017 Screening procedure documented as of this encounter Results FL Video Swallow Study (12/26/2017 1:03 PM BAND SAWMILL OPERATOR) Anatomical Region Laterality Modality Neck, Chest Radio Fluoroscopy Specimen (Source) Anatomical Collection Method Collection Time Re ceived Time Location / / Volume Laterality 12/26/2017 1:03 PM BAND SAWMILL OPERATOR Narrative 12/26/2017 6:00 PM BAND SAWMILL OPERATOR ID VIDEO SWALLOW STUDY 12/26/2017 1:03 PM [...] W Flex And Ext (11/29/2017 9:54 AM BAND SAWMILL OPERATOR) Anatomical Region Laterality Modality Spine, C-Spine, Neck Computed Radiograph y Specimen (Source) Anatomical Collection Method Collection Time Re ceived Time Location / / Volume Laterality 11/29/2017 9:54 AM BAND SAWMILL OPERATOR Narrative 11/29/2017 10:59 AM BAND SAWMILL OPERATOR XR CERVICAL SPINE W FLEX AND [...] status documented in this encounter Care Teams Patient Information Coordinator Relationship Specialty Start Date End Date Unassigned, Provider PCP - General 08/05/03 12/13/[address] [place] [address] documented as of this encounter
--- OUTSIDE RECORDS SUMMARY | 2022-08-17 06:51 | XMS_ITS | Encounter Summary ---
:1965 Author Organization [facility] Address [address] [place] [address] Care Team Providers Name Role Phone Elsewhere, Pcp Primary Care Provider Unavailable Reason for Referral Outpatient (Routine) - Authorized Specialty Diagnoses / Procedures Referred By Contact Refer red To Contact Diagnoses Pain Shoulder Left Alfredo Herrera O.P.A.-C. [facility] Procedures DX Shoulder Left 2+ Views [address] [place] [phone] Referral ID Status Reason Start Date Expiration Date Visits V isits Requested Authorized [id number] Authorized 08/09/2022 08/09/2023 1 1 Reason for Visit Reason Comments Return Visit Encounter Details Date Type Department Care Team Description 08/09/2022 Clinical Communication Department of Cyrus Polk Visit Orthopedic Surgery in [place], [place] [address] [place] [address] 200 [place] [address] [phone] Social History Tobacco Use Types Packs/Day Years [...] you attend scientology or Patient refused 2021 bahai services? Do you belong to any clubs or No 05/17/2022 organizations such as scientology groups, unions, fraMo-DV or athletic groups, or school groups? How [...] 09/06/2022 Appointment Radiology Alfredo Herrera O.P.A.-C. [address] [place] [address] 09/06/2022 Office Visit Orthopedic Surgery Cyrus Polk M.D. [address] [place] [address] Scheduled Orders Name Type Priority Associated Order [...] documented as of this encounter Care Teams Bicycle Inspector Relationship Specialty Start Date End Date Elsewhere, Pcp PCP - General Family Medicine 12/25/21 documented as of this encounter
--- OUTSIDE RECORDS SUMMARY | 2022-08-17 06:51 | XMS_ITS | Encounter Summary ---
:1965 Author Organization [facility] Address [address] [place] [address] Care Team Providers Name Role Phone Elsewhere, Pcp Primary Care Provider Unavailable Reason for Referral Physical Therapy (Routine) - Authorized Specialty Diagnoses / Procedures Referred By Contact Refer red To Contact Diagnoses Aftercare Total Shoulder Arthroplasty Flavia Broderick M.D. [facility] Procedures PT or OT eval and treat (first available) Referral ID Status Reason Start Date Expiration Date Visits V isits Requested Authorized [id number] Authorized 06/23/2022 06/23/2023 99 99 utpatient (Routine) - Closed Specialty Diagnoses / Procedures Referred By Contact Refer red To Contact Diagnoses Aftercare Total Shoulder Arthroplasty Flavia Broderick M.D. [facility] Procedures DX Shoulder Left 2+ Views Referral ID Status Reason Start Date Expiration Date Visits Requ ested Visits Authorized [id number] Closed 06/23/2022 06/23/2023 1 1 Reason for Visit Reason Comments Post-op Encounter Details Date Type Department Care Team Description 06/23/2022 Clinical Communication Department of Cyrus Polk-op Orthopedic Surgery in [place] Sou[place], [place] 200 [facility] 200 [place] [address] [phone] Social History Tobacco Use Types Packs/Day Years [...] you attend baptism or Patient refused 2021 methodist services? Do [...] Appointment Radiology Alfredo Herrera O.P.A.-C. [address] [place] [address] 09/06/2022 Office Visit Orthopedic Surgery Cyrus Polk M.D. [address] [place] [address] documented as of this encounter Results DX [...] documented as of this encounter Care Teams Global Technical Writer Relationship Specialty Start Date End Date Elsewhere, Pcp PCP - General Family Medicine 12/25/21 documented as of this encounter
--- OUTSIDE RECORDS SUMMARY | 2022-08-17 06:51 | XMS_ITS | Encounter Summary ---
:1965 Author Organization [facility] Address [address] [place] [address] Care Team Providers Name Role Phone Elsewhere, Pcp Primary Care Provider Unavailable Reason for Visit Reason Comments Patient needs to r/s Jul 02 appointments Encounter Details Date Type Department Care Team Description 06/28/2022 Clinical Communication RST ANDREW Pollard, Patient needs to r/s [address] [facility] Lilian Hughes Jul 02 appointments [place], [place] [address] [place] [id number] [place] [address] Social History Tobacco Use Types Packs/Day Years [...] you attend amish or Patient refused 2021 rastafarian services? Do [...] call patient re: this . Maritza Jefferson [phone] documented in this encounter Plan of Treatment Upcoming Encounters Date Type Specialty Care Team Description 09/01/2022 Clinical Communication Admitting/Central Scheduling 09/06/2022 Appointment Radiology Alfredo Herrera O.P.A.-C. [address] [place] [phone] 09/06/2022 Office Visit Orthopedic Surgery Cyrus Polk M.D. [address] [place] [phone] documented as of this encounter Visit Diagnoses Not on filedocumented in this encounter Additional Health Concerns Assessment Noted Time PHQ-9 Depression Total Score: 16 02/11/2021 12:00 AM C DT documented as of this encounter Care Teams Acrylic Fabricator Relationship Specialty Start Date End Date Elsewhere, Pcp PCP - General Family Medicine 12/25/21 documented as of this encounter
--- OUTSIDE RECORDS SUMMARY | 2022-08-17 06:51 | XMS_ITS | Encounter Summary ---
:1965 Author Organization [facility] Address [address] [place] [address] Care Team Providers Name Role Phone Elsewhere, Pcp Primary Care Provider Unavailable Reason for Referral Outpatient (Routine) - Closed Specialty Diagnoses / Procedures Referred By Contact Refer red To Contact Diagnoses Aftercare Total Shoulder Arthroplasty Flavia Broderick M.D. [facility] Procedures DX Shoulder Left 2+ Views Referral ID Status Reason Start Date Expiration Date Visits Requ ested Visits Authorized [id number] Closed 06/23/2022 06/23/2023 1 1 Reason for Visit Outpatient (Routine) - Closed Specialty Diagnoses / Procedures Referred By Contact Refer red To Contact Diagnoses Aftercare Total Shoulder Arthroplasty Flavia Broderick M.D. [facility] Procedures DX Shoulder Left 2+ Views Referral ID Status Reason Start Date Expiration Date Visits Requ ested Visits Authorized [id number] Closed 06/23/2022 06/23/2023 1 1 Encounter Details Date Type Department Care Team Description 06/29/2022 Hospital Encounter Department of Flavia Broderick re Total Radiology, Severiano Porter M.D. Shoulder Arthroplasty Building, in [place], [place] [address] [place] [address] Social History Tobacco Use Types Packs/Day Years [...] you attend jewish or Patient refused 2021 rastafari services? Do [...] Appointment Radiology Alfredo Herrera O.P.A.-C. [address] [place] [address] 09/06/2022 Office Visit Orthopedic Surgery Cyrus Polk M.D. [address] [place] [address] documented as of this encounter Procedures Procedure [...] documented as of this encounter Care Teams Community Facilitator Relationship Specialty Start Date End Date Elsewhere, Pcp PCP - General Family Medicine 12/25/21 documented as of this encounter
--- OUTSIDE RECORDS SUMMARY | 2022-08-17 06:51 | XMS_ITS | Encounter Summary ---
:1965 Author Organization [facility] Address [address] [place] [address] Care Team Providers Name Role Phone Unassigned, Provider Primary Care Provider Unavailable Encounter Details Date Type Department Care Team Description 10/28/2005 [facility] Curtis Antoine Op Report-Archive [address] StreetBritton García [place] [address] [facility] [phone] [place] [address] Social History Tobacco Use Types Packs/Day Years Used Date Smoking Tobacco: Never Assessed Sex Assigned at Date Recorded Not on file documented as of this encounter Plan of Treatment Not on filedocumented as of this encounter Visit Diagnoses Not on filedocumented in this encounter Care Teams Floors Buffer Relationship Specialty Start Date End Date Unassigned, Provider PCP - General 08/05/03 12/13/17 [address] [place] [address] documented as of this encounter
--- OUTSIDE RECORDS SUMMARY | 2022-08-17 06:51 | XMS_ITS | Encounter Summary ---
:1965 Author Organization [facility] Address [address] [place] [address] Care Team Providers Name Role Phone Unassigned, Provider Primary Care Provider Unavailable Encounter Details Date Type Department Care Team Description 01/17/2006 [facility] Curtis Antoine Op Report-Archive [address]Britton García [place] [address] [address] [facility] [phone] [place] [address] Social History Tobacco Use Types Packs/Day Years Used Date Smoking Tobacco: Never Assessed Sex Assigned at Date Recorded Not on file documented as of this encounter Plan of Treatment Not on filedocumented as of this encounter Visit Diagnoses Not on filedocumented in this encounter Care Teams Patent Leather Sorter Relationship Specialty Start Date End Date Unassigned, Provider PCP - General 08/05/03 12/13/17 [address] [place] [address] documented as of this encounter
--- OUTSIDE RECORDS SUMMARY | 2022-08-17 06:51 | XMS_ITS | Encounter Summary ---
:1965 Author Organization [facility] Address [address] [place] [address] Care Team Providers Name Role Phone Elsewhere, Pcp Primary Care Provider Unavailable Reason for Visit Reason Comments Pre-visit Intake Encounter Details Date Type Department Care Team Description 06/25/2022 Clinical Communication Visit Review in Pr e-visit Intake [place], [place] [address] [place], [place] [phone] Social History Tobacco Use Types Packs/Day Years [...] you attend sabianist or Patient refused 2021 yazdanism services? Do [...] Appointment Radiology Alfredo Herrera O.PBrittonAOmar [address] [place] [phone] 09/06/2022 Office Visit Orthopedic Surgery Cyrus Polk M.D. [address] [place] [phone] documented as of this encounter Visit Diagnoses Not on filedocumented in this encounter Additional Health Concerns Assessment Noted Time PHQ-9 Depression Total Score: 16 02/11/2021 12:00 AM C DT documented as of this encounter Care Teams Cloud Engineer Relationship Specialty Start Date End Date Elsewhere, Pcp PCP - General Family Medicine 12/25/21 documented as of this encounter
--- OUTSIDE RECORDS SUMMARY | 2022-08-17 06:51 | XMS_ITS | Encounter Summary ---
:1965 Author Organization [facility] Address [address] [place] [address] Care Team Providers Name Role Phone Elsewhere, Pcp Primary Care Provider Unavailable Reason for Visit Reason Comments Pregabalin prescription Encounter Details Date Type Department Care Team Description 06/22/2022 Clinical Communication RST ANDREW Pollard, Pregabalin [address] [facility] Lilian Hughes prescription [place], [place] [address] [facility] [phone] [place] [address] Social History Tobacco Use Types Packs/Day Years [...] Maritza Carrillo - 06/22/2022 12:18 PM CDT [facility] called. The patient had a prescription for Pregabalin sent to one of the [facility] [place] pharmacies on 06/17/22 and she never picked it up. [facility] would like the prescription sent to them since they provide the prescriptions to the patient. Please phone or send a new prescription for Pregabalin 300 mg to [facility] in [place]. Please do as soon as able, the patient is out of this medication. Thank you, Maritza [phone] documented in this encounter Plan of Treatment Upcoming Encounters Date Type Specialty Care Team Description 09/01/2022 Clinical Communication Admitting/Central Scheduling 09/06/2022 Appointment Radiology Alfredo Herrera O.P.A.-C. [address] [place] [address] 09/06/2022 Office Visit Orthopedic Surgery Cyrus Polk M.D. [address] [place] [address] documented as of this encounter Visit Diagnoses Not on filedocumented in this encounter Additional Health Concerns Assessment Noted Time PHQ-9 Depression Total Score: 16 02/11/2021 12:00 AM C DT documented as of this encounter Care Teams Oceanographer Physical Relationship Specialty Start Date End Date Elsewhere, Pcp PCP - General Family Medicine 12/25/21 documented as of this encounter
--- OUTSIDE RECORDS SUMMARY | 2022-08-17 06:51 | XMS_ITS | Clinical Summary ---
:1965 Author Organization [facility] Address [address] [place] [address] Care Team Providers Name Role Phone Elsewhere, Pcp Primary Care Provider Unavailable Source Comments Patient records contain information from all sites at [facility]. For routine questions regarding patient records, call [phone] during business hours, M-F 8:00 AM - 5:00 PM Central Time. Record requests for emergency care only can be directed to [phone] at any time.[facility] Allergies Active Allergy Reactions Severity Noted [...] 10/13/2017 Other lashaun ction(s): (see comments) Contact [place] titis Gabapentin Other (see comments) Low 05/12/2017 [...] mg oral Daily, Other, Reported on 06/21/2022 uyeakkgras-oithevrbqxmiy-fwwp Take 1 tablet by 0 12/2020 Active [...] by 0 01/28 Active mouth at bedtime. multivit-min/iron/folic/vbb168 Take 1 tablet by 0 Active (HAIR, [...] Added automatically from request for lonnie li [id number] Nicotine Dependence Unspecified 11/29/2017 Other Correction Current Drug Therapy 12/30/2016 Opioid Moderate Or [...] Hughes 06/17/2022 Anesthesia Event Radiology Luci Soniberyl, GRANT MANAGER, OIL WELL FISHING TOOL OPERATOR, DNAP Brian Hunt M.D. 06/17/2022 Orders Only [...] (ICD-10-CM)] 06/15/2022 Clinical Neurology Robert Diehl Followup ([facility] Veronica Celaya M.D. Patient/) 06/10/2022 Clinical Orthopedic Surgery Cyrus Polkay re sults Veronica Souza M.D. 06/03/2022 Clinical Orthopedic Surgery Cyrus Polk Post-op Problem Communication Lilian Souza 05/19/2022 Clinical Neurology Robert Diehl pres ription Veronica Celaya M.D. 05/18/2022 Surgery Cyrus Polk ARTHROPLASTY Liilan Souza REPLACEMENT TOT AL SHOULDER. 05/18/2022 Anesthesia [...] you attend sabianism or Patient refused 2021 yarsanism services? Do [...] 09/06/2022 Appointment Radiology Alfredo Herrera O.P.A.-C. [address] [place] [phone] 09/06/2022 Office Visit Orthopedic Surgery Cyrus Polk M.D. [address] [place] [phone] Health Maintenance Due Date Last Done Comments [...] 09/11/2021, 09/13/2020 Medical Devices Implanted Type Area Hat Lining Blocker Device Shelf Model / Identifier Expiration Serial / Date Lot Cmnt Bn Smp 20gm - [id number] Bone Cement Left: [id number] [id number] / Implanted: Qty: 1 on 12/30/2021 by Cyrus Panchal M.D. at [facility] Shoulder / Grft Dbm Grf Obl Ld 15 - [id number] - [id number] Bone or Tis lebron Left: Medtronic 10/14/2023 [id number] / Implanted: Qty: 1 on 02/26/2022 at [facility] Shoulder [id number] / 4mm Amplatz Micro Plug Embolization Brain Amplatzer [id number] / Implanted: Qty: 1 on 02/16/2021 by Mustapha Posey M.D. at [facility] Coil [employer] Rep / Dayo [id number] Description: MRI Conditional at 1.5T or 3T Max Whole Body YUSEF of 4 W/kg. AAC 2020 [email or web address] Hardware E.G. Hardware e.g. Neck Pins/Screws/Rods pins/screws/rods Scrw Cmp Pthrd 6.5x25 - [id number] Hardware e.g. Left: Trevor B iomet 12/29 [id number] / Implanted: Qty: 1 on 02/26/2022 at [facility] pins/screws/rods Shoulder 05/17 [id number] Knee Implant Knee Implant Bilateral: Knee Plg Ocl Amp Avpii 6 - [id number] Mesh or Patch Pedersen 07/31 [id number] / Implanted: Qty: 1 on 02/16/2021 by Mustapha Posey M.D. at [facility] [id number] Shoulder Implant Shoulder Implant Left: Shoulder Bsplt Glnd Cmp Rv Aug Sm - [id number] Shoulder Implant Left: Trevor Biomet 01/26 [id number] / Implanted: Qty: 1 on 02/26/2022 at [facility] Shoulder [id number] Hum Stm Cmp Rvrs Prim Mini 9 - [id number] Shoulder Implant Le ft: Trevor Biomet 08/28 [id number] / Implanted: Qty: 1 on 05/18/2022 by Cyrus Panchal M.D. at [facility] Shoulder 02/14 [id number] Medtronic Spinal Cord Stimulator Spinal Cord Back Medtronic [id number] / Implanted: 06/30/2020 (Quantity not on file) Stimulator [id number] / [id number] Description: Medtronic Sigma Labslis Spinal Cord Stimulator model #28978. As of 06/17/22, the stimulator IPG is [...] as of 03-19-21 SDN Explanted Type Area Hat Lining Blocker Device Shelf Model / Identifier Expiration Serial / Date Lot Hum Hd Vrs Dl [id number] - [id number] Shoulder Left: Trevor Biom et 05/29/2031 [id number] / Implanted: Qty: 1 on 12/30/2021 by Cyrus Panchal M.D. at [facility] Implant Shoulder / Explanted: Qty: 1 on 02/26/2022 at [facility] [id number] [facility] Cmp Rvrs Prim Std 10 - [id number] Shoulder Left: Zi mmer Biomet 12/16/2029 [id number] / Implanted: Qty: 1 on 02/26/2022 at [facility] Implant Shoulder / Explanted: Qty: 1 on 05/18/2022 at [facility] [id number] Spinal Cord Stimulator Spinal Cord Pelvis Nevro Explanted: 03/10/2020 (Quantity not on file) Stimulator Description: Device was explanted on 02-26 per [facility] Support. HEMALATHA 03-19-21 Procedures Procedure Name Priority [...] procedure are i n the results section. TN US GUIDE PLC NDL Routine 05/18/2022 11:24 AM R esults for this CDT procedure are i n the results section. TN INJ ANES BRACHIAL Routine 05/18/2022 11:24 AM [...] of3 resultswithin the time period is included. [facility] gist Method Time Signature Hemoglobin [...] City/State/ZIP Code Phon e Number [facility] - [address] [place], [place] [address] [facility] [place] [address] [facility] 200 [facility] Basic Metabolic Panel (06/18/2022 7:50 AM [...] 06/18/2022 DTL Black/ mL/min/BSA 8:56 AM CDT Namibian Comment: ----ADDITIONAL INFORMATION---- Estimated GFR calculated using [...] City/State/ZIP Code Phon e Number [facility] - [address] [place], [place] [address] [facility] [place] [address] [facility] [address] MR Lumbar Spine without IV Contrast (06/17/2022 4:49 PM CDT) Anatomical Region Laterality Modality Lumbar Spine, Neuroradiology RST LOS, Neuroradiology N/A Magnetic Resonance ARZ LOS, Neuroradiology FLA [facility] Specimen (Source) Anatomical Collection [...] 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 [place] intraocular lenses are absent . 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 [place] intraocular lenses are absent . 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 [place] intraocular lenses are absent . 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 [place] intraocular lenses are absent . 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 [place] intraocular lenses are absent . 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 [place] intraocular lenses are absent . Mild mucosal [...] ETT location: oral VL device: glide scope [place] scope blade size: 3 Adult tube size: [...] ?? Airway event: no complications Sapphire Verma GRANT MANAGER, OIL WELL FISHING TOOL OPERATOR, DNAP ANESTHESIA ORDERABLES Osmolality, Urine (06/16/2022 9:32 AM CDT) P athologist Signature Osmolality, U 745 150 - 1150 06/16/2022 DTL mOsm/kg 11:17 AM CDT Specimen Anatomical Collection Method Collection Time Receive d Time (Source) Location / / Volume Laterality Urine 06/16/2022 9:32 AM CDT 10:39 AM CDT Maira Haynes M.D. LAB URINE ORDERABLES Performing Organization Address City/State/ZIP Code Phon e Number [facility] - [address] [place], [place] [address] [place] [address] [facility] [address] (ABNORMAL) Dipstick, Urine (06/16/2022 [...] M.D. LAB URINE ORDERABLES Performing Organization Address [facility] Phon e Number [facility] - [address] [place] [address] [place] [address] pH, Random, Urine (06/16/2022 9:32 AM CDT) P athologist Signature pH, Random, U 5.0 4.5 - 8.0 06/16/2022 DTL 11:17 AM CDT Specimen Anatomical Collection Method Collection Time Receive d Time (Source) Location / / Volume Laterality Urine 06/16/2022 9:32 AM 2 CDT 10:39 AM CDT Maira Haynes M.D. LAB URINE ORDERABLES Performing Organization Address City/[facility] Phon e Number [facility] - [address] [place], [place] [address] [place] [address] (ABNORMAL) Microscopic Manual (06/16/2022 9:32 AM [...] M.D. LAB URINE ORDERABLES Performing Organization Address City/[facility] Phon e Number [facility] - [address] [place], [place] [address] [place] [address] (ABNORMAL) Urinalysis with Microscopic: Urine, Catheter [...] M.D. LAB URINE ORDERABLES Performing Organization Address City/[facility] Phon e Number [facility] - [address] [place], [place] [address] [place] [address] Laboratories-[address] Hemoglobin A1c (06/16/2022 7:31 AM CDT) P athologist Signature Hemoglobin A1c, 4.9 4.0 - 5.6 06/16/2022 DTL B % 8:13 AM CDT Specimen Anatomical Collection Method Collection Time Receive d Time (Source) Location / / Volume Laterality Blood (Blood, 06/16/2022 7:31 AM 06/16/20 7:51 Venous) CDT AM CDT Kiran Melton M.D. LAB BLOOD ADD-ON Performing Organization Address [facility] Phon e Number [facility] - [address] [address] [address] Vitamin B12 Assay (06/16/2022 7:31 AM [...] M.D. LAB BLOOD ADD-ON Performing Organization Address [facility] Phon e Number [facility] - [address] [place] [address] [address] (ABNORMAL) Comprehensive Metabolic Panel (06/16/2022 7:31 [...] 06/16/2022 DTL Black/ mL/min/BSA 8:22 AM CDT [place] Comment: ----ADDITIONAL INFORMATION---- Estimated GFR calculated using [...] City/State/ZIP Code Phon e Number [facility] - [address] [place], [place] [address] [facility] [place] [address] [facility] [address] Critical Care (06/15/2022 8:47 [...] life-threatening deterioration of the fo llowing conditions: SOCIAL MEDIA STRATEGIST failure or compromise Critical care was time spent personally by me on the following activities: ordering and review of radiographic stud ies, ordering and review of laboratory studies, discussions with our [facility] provider, discussions with consultants, examination of patient, rev iew of old charts and re-evaluation of patient's condition Araceli Ochoa APRNNCristiana PROCEDURE/MINOR SURGICA L ORDERABLES SARS Coronavirus 2, PCR Rapid, V Symptomatic (06/15/2022 7:51 PM CDT) [facility] Method Time Signature SARS CoV-2, Undetected Undetected 06/15/2022 [facility] PCR, Rapid, V 8:23 PM CDT Comment: ----ADDITIONAL INFORMATION---- This RT-PCR test was performed using the Tita SARS-CoV-2 and Influenza A/B Reagent assay from [employer], which has received Emergency Use Authori zation(EUA) by the U.S. Food and Drug Administration . Fact sheets for this Emergency Use Autho rization (EUA) assay can be found at the following link s: For Healthcare Providers: https://www.fda.gov/media/179643/downloa d For Patients: https://www.fda.gov/media/340659/downloa d SARS Coronavirus 2, Source, Rapid Swab, Nasopharynx 06/15/2022 7:58 PM CDT STMA Specimen Anatomical Collection Method Collection Time Receive d Time (Source) Location / / Volume Laterality Varies 06/15/2022 7:51 PM 7:58 (Nasopharynx) CDT PM CDT Scooter Tony APRN, C.N.P. LAB MICROBIOLOGY - GENE RAL ORDERABLES Performing Organization Address City/State/ZIP Code Phon e Number [facility] - [address] [place], [place] [address] [facility] [place] [address] [facility] [address] Head [...] 2H/6H, 5th Gen (06/15/2022 2:48 PM CDT) [facility] Method Time Signature Troponin T, 2 [...] 3:54 PM CDT Specimen Information: Specimen ID: [id number] Specimen Type: Blood Specimen Collection Start Date: 06/15/20 ??2:48 PM Specimen Received Date: 06/15/2022 ??3:2 1 PM Specimen ID: [id number] Specimen Type: Blood Specimen Collection Start Date: 06/15/20 ??3:53 PM Specimen Received Date: 06/15/2022 ??3:5 3 PM Demarcus Ernst M.D. LAB BLOOD TROPONIN Performing Organization Address City/State/ZIP Code Phon e Number [facility] - [address] [place], [place] [address] [facility] [place] [address] [facility] [address] DX Hip [...] Signature Ventricular Rate 58 BPM MUSE ECG/Min TN Interval 154 ms MUSE QRSD Interval 102 ms MUSE QT Interval 442 ms MUSE QTC Interval 433 ms MUSE P [place] 48 degrees MUSE R [place] -1 degrees MUSE T Wave [place] 38 degrees MUSE Specimen Anatomical Collection Method [...] Ernst M.D. ECG ORDERABLES Performing Organization Address City/[facility]/ZIP Code Phon e Number MUSE MUSE NA Troponin T, Baseline, 5th gen (06/15/2022 12:37 PM CDT) athologist Signature Troponin T, <6 <=10 ng/L 06/15/2022 [facility] Baseline, 5th 1:37 PM CDT gen Specimen Anatomical Collection Method Collection Time Receive d Time (Source) Location / / Volume Laterality Blood (Blood, 06/15/2022 12:37 06/15/2022 1:03 Venous) PM CDT PM CDT Demarcus Ernst M.D. LAB BLOOD TROPONIN Performing Organization Address City/[facility]/ZIP Code Phon e Number [facility] - [address] [place], [place] [address] [place] [address] [facility] 200 [facility] (ABNORMAL) Hepatic Function Panel (06/15/2022 12:37 [...] City/State/ZIP Code Phon e Number [facility] - [address] [place] [address] [place] [address] [facility] [address] [facility] (ABNORMAL) CBC with Differential, Blood (06/15/2022 12:36 PM CDT)Only the most recent of4 resultswithin the time period is included. [facility] Method Time Signature Hemoglobin 10.4 (L) [...] LAB BLOOD ADD-ON Performing Organization Address City/State/[facility] Code Phon e Number [facility] - [address] [place], [place] [address] [place] [address] [facility] [address] [place], [place] [id number] [place] [address] [address] [facility] Prothrombin Time (PT) (06/15/2022 12:34 PM CDT) P athologist Signature Prothrombin 10.2 9.4 - 12.5 [facility]2022 [facility] Time, P sec 1:10 PM [...] City/State/ZIP Code Phon e Number [facility] - [address] [place], [place] [address] [facility] [place] [address] [facility] [address] Interpretation of [...] Provider Not In System IMG DIAGNOSTIC IMAGING [facility] Performing Organization Address City/[facility]/ZIP Code Phon e Number IIMS IIMS NA [...] purposes. Jenna Zaldivar M.D. IMG DIAGNOSTIC IMAGING [facility] Surgical Pathology, Frozen Lab (05/18/2022 1:04 PM CDT) Component Value Ref Test Analysis Performed At [facility] Range Method Time Signature 05/20/2022 METH [...] Address City/State/ZIP Code Phon e Number [facility] - [address] [place], [place] [address] [facility] [place] [address] [facility] [address] Bacteria Cult, Aerobe / Anaerobe+Susc (05/18/2022 1:03 PM CDT)Only the most recent of3 resultswithin the time period is included. [facility] gist Method Time Signature Bacteria Cult, No growth 06/01/2022 DTL Aerobe/Anaerob after 14 6:02 PM CDT e+Susc days of incubation. Specimen Anatomical Collection Method Collection Time Receive d Time (Source) Location / / Volume Laterality Shoulder, Left 05/18/2022 1:03 PM 022 5:21 CDT PM CDT Comment: Specimen Source Site: Tissue #1 Narrative [facility] - 06/01/2022 6:02 PM CDT Bacterial Culture: Placed in Bactec aero bic and Bactec anaerobic bottles Cyrus Polk M.D. LAB MICROBIOLOGY - GENERAL O RDERABLES Performing Organization Address City/State/ZIP Code Phon e Number [facility] - [address] [place], [place] [address] [facility] [place] [place] [address] [facility] [address] LDA ANE ENDOTRACHEAL [...] ETT location: oral VL device: glide scope [place] scope blade size: 3 Adult tube size: [...] no complications Kaushik Carlos, Ch.B. ANESTHESIA ORDERABLES TN INJ ANES BRACHIAL PLEX, TN US GUIDE PLC NDL, MC ANE NERVE [...] Non-Radiology Image-Anesthesiology Image Exam (05/18/2022 9:35 AM [facility]) Specimen (Source) Anatomical Collection Method Collection Time Re ceived Time Location / / Volume Laterality 05/18/2022 10:22 AM MST Narrative [facility] - 05/18/2022 9:35 AM [facility] This order has been created and auto-finalized to support the import of images acquired without order. The clini france documentation to support these images can be found on the encounter daniel t produced images. Provider Not In System IMG NON RAD IMAGING PROCEDUR ES Performing Organization Address City/[facility]/ZIP Code Phon e Number [facility] NA (ABNORMAL) SPSMA Result (05/17/2022 10:50 AM [...] Reviewed by: Tech 05/17/2022 1:04 PM CDT [facility] Specimen Anatomical Collection Method Collection Time Receive d Time (Source) Location / / Volume Laterality Blood 05/17/2022 10:50 05/17/2022 AM CDT 11:30 AM CDT Alfredo Kamara LAB BLOOD ADD-ON Performing Organization Address City/State/ZIP Code Phon e Number [facility] - [address] [place], [place] [address] [place] [address] [facility] [address] Type and Screen (with reflex Antibody ID) (05/17/2022 10:50 AM CDT) [employer] Method Time Signature ABORh A Neg Not 05/17/2022 ETRM applicable 7:10 PM CDT Antibody Negative Negative 05/17/2022 ETRM Screen 7:22 PM CDT Type & Screen 07/15/2022 05/17/2022 ETRM Expiration 23:59 7:10 PM CDT Testing [place] DEFAULT 05/17/2022 ETRM Location 12:24 PM CDT Specimen Anatomical Collection Method Collection Time Receive d Time (Source) Location / / Volume Laterality Blood (Blood, 05/17/2022 10:50 05/17/2022 Venous) AM CDT 12:24 PM CDT Alfredo Kamara LAB BLOOD BANK TEST ORDERABL ES Performing Organization Address City/State/ZIP Code Phon e Number [facility] - [address] [place] [address] [facility] [place] [address] [facility] [address] [facility] SARS Coronavirus 2, Molecular Detection, PCR, Varies Asymptomatic (05/17/2022 10:26 AM CDT) [employer]! Method Time Signature COVID-19, Swab, 05/17/2022 DTL [...] ----ADDITIONAL INFORMATION---- This RT-PCR test using the Qteros SARS-Co V-2 Assay ( [employer].) performed on the Qteros Two Module System has received Emergency Use Authorization (EUA) by the U.S. Food and Drug Administration, and is modified from the bakeshop cleaner's instructions with a bridging study. Performance characteristics were verifie d by [facility] in a manner consistent with CLIA requirements. Visit the CDC website: https://www.cdc.g ov/coronavirus/ for the most recent guidelines on [facility] virus testing. Fact Sheet for Healthcare Providers: https://www.fda.gov/media/438299/downloa d Fact Sheet for Patients: https://www.fda.gov/media/041074/downloa d Specimen Anatomical Collection Method Collection Time Receive d Time (Source) Location / / Volume Laterality Varies 05/17/2022 10:26 05/17/2022 (Nasopharynx) AM CDT 10:52 AM CDT Alfredo Kamara LAB MICROBIOLOGY - GENERAL O RDERABLES Performing Organization Address City/State/ZIP Code Phon e Number [facility] - [address] [place], [place] [address] [facility] [place] [place] [address] [facility] [address] from Last 3 Months Insurance Payer Benefit Plan / Subscriber ID Effective Phone Address T ype Group Dates MEDICARE MEDICARE A AND B [id number] 2012-Pre [address] [place] [address] MEDICA MEDICA [id number] 2018-Pres [phone] Medica id HMO ACCESSABILITY ent [phone] [place] [address] Advance Directives For more information, please contact: [phone] Latest Code Status on File Code Status [...] 8:26 PM Full Code: Discussed Care Teams Lpn Or Medical Assistant Relationship Specialty Start Date End Date Elsewhere, Pcp PCP - General Family Medicine 12/25/21
--- OUTSIDE RECORDS SUMMARY | 2022-08-17 06:52 | XMS_ITS | Encounter Summary ---
:1965 Author Organization [facility] Address [address] [place] [address] Care Team Providers Name Role Phone Elsewhere, Pcp Primary Care Provider Unavailable Reason for Visit Reason Comments xray results Encounter Details Date Type Department Care Team Description 06/10/2022 Clinical Communication Department of Cyrus Polk xr ay results Orthopedic Surgery in [place], [place] [address] [place] [address] 200 [place] [address] [phone] Social History Tobacco Use Types Packs/Day Years [...] you attend synagogue or Patient refused 2021 hoahaoism services? Do [...] Cyrus Polk M.D. CT CT Job ID: [id number] documented in this encounter Miscellaneous Notes Telephone Encounter - Sosa Laughlin - 06/10/2022 11:51 AM CDT Patient is calling for xray results. Xrays from 06/07 are in qreads. Please call patient to discuss. Thank you documented in this encounter Plan of Treatment Upcoming Encounters Date Type Specialty Care Team Description 09/01/2022 Clinical Communication Admitting/Central Scheduling 09/06/2022 Appointment Radiology Alfredo Herrera O.P.A.-C. [address] [place] [phone] 09/06/2022 Office Visit Orthopedic Surgery Cyrus Polk M.D. [address] [place] [phone] documented as of this encounter Visit Diagnoses Not on filedocumented in this encounter Additional Health Concerns Assessment Noted Time PHQ-9 Depression Total Score: 16 02/11/2021 12:00 AM C DT documented as of this encounter Care Teams Cuff Stitcher Relationship Specialty Start Date End Date Elsewhere, Pcp PCP - General Family Medicine 12/25/21 documented as of this encounter
--- OUTSIDE RECORDS SUMMARY | 2022-08-17 06:52 | XMS_ITS | Encounter Summary ---
:1965 Author Organization [facility] Address [address] [place] [address] Care Team Providers Name Role Phone Elsewhere, Pcp Primary Care Provider Unavailable Encounter Details Date Type Department Care Team Description 06/15/2022 Ancillary Procedure Department of Demarcus Ernst, Radiology in [place], [place] [address] [facility] [address] [place] [phone] (Wo rk) Social History Tobacco Use Types [...] you attend mormonism or Patient refused 2021 buddhist services? Do [...] Appointment Radiology Alfredo Herrera O.[facility] [address] [place] [address] 09/06/2022 Office Visit Orthopedic Surgery Cyrus Polk M.D. [address] [place] [address] documented as of this encounter Procedures Procedure [...] Modality Head, Neuroradiology RST LOS, Neuroradiology [facility], N/A Computed Tomography Neuroradiology [facility], Other Specimen (Source) Anatomical Collection [...] documented as of this encounter Care Teams Seconds Handler Relationship Specialty Start Date End Date Elsewhere, Pcp PCP - General Family Medicine 12/25/21 documented as of this encounter
--- OUTSIDE RECORDS SUMMARY | 2022-08-17 06:52 | XMS_ITS | Encounter Summary ---
:1965 Author Organization [facility] Address [address] [place] [address] Care Team Providers Name Role Phone Elsewhere, [...] Embolism Right Vertebral Artery (HCC) M.DBritton [address] [place], [place] [address] Referral ID Status Reason Start Date Expiration Date Visits V isits Requested Authorized [id number] Authorized 06/17/2022 06/17/2023 1 1 Physical Therapy (Routine) - Authorized Specialty Diagnoses / Procedures Referred By Contact Refer red To Contact Python Programmer Diagnoses Weakness General Pain Back Ataxia Repeated Falls Debility Primary Osteoarthritis Shoulder Left 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 Scooter Tony, NIKKY, C.N.P. [address] [place] [id number] Weakness General (Primary Dx); 06/18/2022 Encounter [facility], Neftali García M.D. [address] [place] [phone] Incontinence Urinary; [facility], Saul Pollard M.D. [address] [place] [address] Pain Back; Domitilla Ataxia; Building, Third Repeated Fal ls; Floor Debility; [address] [facility] Primary Osteoarthritis Shoul marquis Left; [place], [place] Ataxia From [facility] Cerebrovascular Accident; [id number] Stroke Cerebrovascular Accid ent Personal History; [phone] Fusion Cervical Spine Status Post; Fibromyalgia; Chronic [...] you attend mandaeism or Patient refused 2021 hoahaoism services? Do [...] AM CDT DISCHARGE SUMMARY BRIEF OVERVIEW Hospital: [facility] Discharge Provider: Saul Pollard M.D. Primary Team: [facility] Medicine ([facility]) Primary Care Providers: Elsewhere, Pcp (General) No address on file Primary Care Provider Phone Number: None Primary Care Provider Fax Number: None Admission Date: 06/15/2022 Discharge Date: 06/18/2022 PRINCIPAL DIAGNOSIS Weakness General SECONDARY DIAGNOSES Principal Problem: Weakness General DISCHARGE DISPOSITION Home-Health Care [facility] [6] ACTIVE ISSUES REQUIRING FOLLOW UP Please [...] Scheduled Appointments 06/21/2022 11:00 AM PHR PHARMACIST [address] [place] [address] Pharmacy For appointment details refer to your Patient Appointment Guide. TEST RESULTS PENDING AT DISCHARGE Pending Labs Order Current Status Basic Metabolic Panel In process DETAILS OF HOSPITAL STAY REASON FOR ADMISSION Pain Back Weakness General Incontinence Urinary Ataxia Repeated Falls HOSPITAL COURSE Ms. Mosquera is hospitalized on [facility] Medicine ([facility]) for evaluation and management of [...] does not want to transition to a mcc facility currently. She will be stable to discharge once her MRI of the brain and spine results are back and if they are not concerning. Saul Pollard M.D. Maira Haynes M.D. - 06/17/2022 2:07 PM CDT DISCHARGE SUMMARY BRIEF OVERVIEW Hospital: [facility] Discharge Provider: Saul Pollard M.D. Primary Team: [facility] Medicine 4 ([facility]) Primary Care Providers: Elsewhere, Pcp [...] HOSPITAL COURSE Ms. Mosquera is hospitalized on [facility] Medicine 4 ([facility]) for evaluation and management of [...] AM CDT You were discharged from the [facility] Medicine 4 ([facility]) Service. Please identify this service [...] needed, Assistance with walking and moving around [facility] Discharge information provided on 06/16/2022 Contact information: [facility], [address], Tessie Arora - 06/17/2022 10:50 AM CDT Take a copy of this after visit summary to your appointment(s). REID NATH June 28, 2022 - Tuesday --10:00 AM - Hospital Follow-Up with Dr. Blackwell, primary care provider, at [facility] RECOMMENDATIONS: * * [facility] You may have outpatient appointments at [facility] that changed during your hospitalization. Refer to your [facility] Patient Visit Guide (PVG) for the most current schedule of appointments and detailed instructions of tests/procedures. Call [phone], if you did not receive an PVG or need to CANCEL any [facility] appointment(s). AttachmentsThe following attachments cannot be sent through Care Everywhere. Pregabalin (By mouth) (Andorran)Furosemide (By mouth) (Andorran)documented in this encounter Medications at Time [...] THC multivit-min/iron/folic/ Take 1 tablet by 0 [id number] (HAIR, SKIN AND mouth daily. NAILS ADVANCED [...] Discussed patient's care with PT Outcome Measures [facility] Inpatient Short Form: Putting on [...] Standardized Score: 44.27 Interpretation: Clinicians answer the -[facility] Inpatient Short Form based on [...] Assistance with meal preparation, Assistance with financial services professional, Assistance with shopping, Assistance with housekeeping, Assistance [...] Melton M.D. - 06/17/2022 8:[address] [facility] 4 ([facility]) PROGRESS NOTE SUBJECTIVE No acute [...] / PLAN Ms. Mosquera is hospitalized on [facility] Medicine 4 ([facility]) for evaluation and management of [...] Right Lives With: Alone Receives Help From: stack attendant, Family, Friend(s) (Son lives in apt next to her.) ADL Assistance: Required assistance ADL Assistance Comments: Gets help from [facility] ATTENDANT for her bath/shower 3x/week, and for her meals, RN once every 2 weeks. IADL/Homemaking Assistance: Required assistance IADL/Homemaking Assistance Comments: Gets help for housecleaning Driving: Does not drive Driving Comments: Friend assists Occupational Role: On disability Occupational Role Comments: Previously worked at a [employer] and [employer] Prior Mobility/Functional Transfers Level of [place]: Needs assistance Gait Devices/Wheelchair Used Comments: No AD since [facility]. Home Equipment Home Adaptive Equipment: [...] Staff Present During Session: RN and transportation economics teacher Outcome Measures [facility] Inpatient Short Form: -[facility] Basic Mobility (V.2) How much help from [...] 3-5 steps with a railing?: A Lot -[facility] Basic Mobility (V.2) Raw Score: 21 -[facility] Basic Mobility (V.2) Standardized Score: 45.55 Interpretation: Clinicians answer the -[facility] Inpatient Short Form based on [...] patient wasunsure of a few. Consider outpatient [facility] pharmacy review Changes to medications anticipated at discharge:pending hospital course Marlene Wu Pharm.D., R.Ph. [phone] Marlene Wu PharmOj., R.Ph. - 06/16/2022 1:14 PM CDT Images from the original note were not included. Admission Medication History Note Medication list source: Patient + [facility] refill history (patient gets her scheduled [...] Take 150 mg by mouth every morning. cncblgiguq-qbqxmgygjtodk-yuna (ESGIC) 50-325-40 mg per tablet Past Month [...] 1 spray as needed. 5 mg THC multivit-min/iron/folic/rir948 (HAIR, SKIN AND NAILS ADVANCED ORAL) Past [...] Cornelius). Per . Demetri, she lost her bellows charger assembler months ago so has not been able to charge the device. Device was interrogated, however, it was unable to connect to the python programmer, likely due to the battery being depleted per patient report. computed tomography technician Mandy in room during interrogation and aware that device is off. Carley Mendez M.D. PGY-3, Anesthesiology and Perioperative Medicine documented in this encounter H&P Notes Renetta Michael M.D., M.S. - 06/15/2022 11:41 PM CDT Images from the original note were not included. [facility] Medicine 4 ([facility]) - ADMISSION NOTE Hospital Day [...] but left AMA. She presented to the [place] ED 06/15. In the ED, she was [...] Urinalysis Case will be staffed with supervising protection consultant within 24 hours. Please page the [facility] Medicine 4 ([facility]) service pager at [phone] with questions or concerns. Renetta Michael M.D., M.S. PGY-3 [phone] Department of Internal Medicine Kiran Melton M.D. - 06/15/2022 12:05 AM CDT [facility] Medicine 4 ([facility]) Admission Note SUBJECTIVE CHIEF COMPLAINT [...] overflow incontinence. She was seen in the [place] ER a few days ago where they obtained a CT head without evidence for new infarct. She left against medical advice and came to [place] for re-evaluation. Upon arrival to the ED, [...] Take 150 mg by mouth every morning. psxyufbxxy-oxvqwsobakkgc-mtjs (ESGIC) 50-325-40 mg per tablet, Take 1 [...] 1 spray as needed. 5 mg THC multivit-min/iron/folic/twk384 (HAIR, SKIN AND NAILS ADVANCED ORAL), Take [...] / PLAN Ms. Mosquera is hospitalized on [place] [address] (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 Patient is agreeable to restart her home health nursing and [facility] along with PT. Patient will have her friend transport her home today. ASSESSMENT / PLAN Assessment The patient appear to have insight into the patient's needs at this time and are planning appropriately for discharge needs. They report agreement with the below plan with no further questions at this time. Plan [facility] Georgette RN: [phone] Home health requesting an AVS discharge summary [...] Cris Landin R.N. 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 IADL/Homemaking Assistance: Required assistance IADL/Homemaking Assistance Comments: Gets help for housecleaning Driving: Does not drive Driving Comments: Friend assists Occupational Role: On disability Occupational Role Comments: Previously worked at a [employer] and [employer] Prior Mobility/Functional Transfers Level of [place]: Needs assistance Previous Transfer/Mobility Assistance Comments: [...] quite lethargic, yet impulsive required assistance to [facility] gown and shoulder immobilizer to maximize [...] and patient's status was discussed Outcome Measures [facility] Inpatient Short Form: Putting on [...] Standardized Score: 32.03 Interpretation: Clinicians answer the -[facility] Inpatient Short Form based on [...] Assistance with meal preparation, Assistance with financial services professional, Assistance with shopping, Assistance with housekeeping, Assistance [...] Planning Assessment SUBJECTIVE Assessment Information Referral Source: reimbursement analyst Referral Reason: Discharge Planning Primary Language: Andorran Sister Superior Services Used: No Person(s) present during interview: [...] Pleasant, Calm Communication: Talks, Understands speaking, Understands Andorran Shopping: Needs assistance Transportation: Support from family Medication Management: Independent Housekeeping: Dependent Meal Prep: Needs assistance Managing Finances: Needs assistance Assistive Devices: Cane, Tub/shower chair/bench Services/Resources: Home health Agency Name: Home health reconnect Services Provided: mcc twice monthly, [facility] 3 times a week Baseline Services/Resources Primary care clinic and provider: ELSEWHERE, PCP Services/Resources: Home health Additional Resources: none Anticipated Needs Functional Status: Bathing, Dressing, Grooming/hygeine, Meal preparation, Medication set-up/administration, Housekeeping, Shopping, Transportation use (drive car, use taxi/bus) Assistive Devices: Tub/shower chair/bench, Grab bars - toilet, Grab bars - wall Services/Resources: Home health Agency Name: Home health reconnect Services Provided: mcc twice monthly, [facility] 3 times a week Anticipated Modifications to the Patient's Home: Grab Bars Transportation Needs: Support from family Does the patient need discharge transport arranged?: No Phone Number for Ride/Caregiver: son or daughter Anticipated Discharge Destination: Home-Health Care [facility] ASSESSMENT / PLAN Assessment: The reimbursement analyst met with Angie Mosquera to discuss her current hospitalization and home goingneeds. The patient was unaccompanied. The patient was a reliable historian. The role of reimbursement analyst was reviewed. The patient reviewed her prior level of care and support system. The patient receives support from her daughter, son, and home care staff . The patient described her living environment as a apartment with elevator access with level entry. Housekeeping, grocery shopping, meal prep, and other household responsibilities have previously been completed by patient and patient's son. reimbursement analyst [facility] the [facility] based on their [facility] setting, previous [...] ADL's. She currently has home health through [facility] for m[facility] twice monthly and [facility] 3 times a week for 1 [...] identified the following as their current vendor(s): [facility]. After reviewing the patient's chart and meeting with the patient, the reimbursement analyst deemed the LACE+/readmission questions were appropriate. [...] readmission could not have been prevented. The reimbursement analyst will share this information with the care team. The patient reports understanding that she will dismiss from the hospital when medically stable. Pending hospital course and medical readiness, no barriers to dismissal have been identified at this time. Plan: The patient agrees with the following plan. Patient's anticipated discharge disposition is: Home with Home Healthcare Reconnected: [facility] Transportation upon dismissal will be provided by family--son or daughter . reimbursement analyst recommended a shower seat, grab bars, home delivery of groceries, and reaching out to family, friends, and neighbors for assistance. reimbursement analyst provided information regarding the dismissal process and the Advance Health Care Planning: Making Your Wishes Known [phone] booklet along with education on the benefits of completing an advance directive and resources that may assist them in this process. The patient sharedno further questions or concerns regarding advance directives. The patient appears to have an understanding of how to complete an advance directive and reported awareness of resources to assist them. reimbursement analyst placed or requested the following hospital-based consult orders and/or referrals: PT/OT. reimbursement analyst will continue to assess for homegoing needs with the interdisciplinary team. reimbursement analyst encouraged the patient to reach out with any questions/concerns. Patient to discharge with home health care. [facility] Georgette RN: [phone] Home health requesting an AVS discharge summary [...] Prescriptions are provided by pain management through [facility] and her PCP [...] lumbosacral radicular pain, last reportedly revised at [facility] in 2019. The initial implant date is unknown. She had turned the device off for one her surgeries, then misplaced the python programmer. She has received a new python programmer, but has not gotten to using the new device. It is at her home. She thinks she has not used the SCS for several months. CURRENT MEDICATIONS: Acetaminophen 1 g four times a day Ayuklcjgkuaqu-szzloqnj-whkuvdpif-Lipoderm cream twice a day Diclofenac 1% gel [...] mg by mouth every morning. Past Week hfrdkrxkqp-tzkroyxfcddzq-bbit (ESGIC) 50-325-40 mg per tablet Take 1 [...] as needed. 5 mg THC Past Week multivit-min/iron/folic/koh703 (HAIR, SKIN AND NAILS ADVANCED ORAL) Take [...] Daily Given, 1,000 mg at 06/16 1345 bssfwsuehntth-tglftigx-gvcpsbhxe in Lipoderm 2%-0.5%-2% cream 1 g 1 [...] PRN Given, 100 mg at 06/16 921 voeawfehxh-jyntlyxssfrth-cptq 50-325-40 mg per tablet 1 tablet (ESGIC) [...] Depth/Rhythm: Regular (06/15/228 : Asia Cortez RBetsy, [facility]) PAIN PHYSICAL EXAM GENERAL: Pleasant, 57 y.o. [...] longitudinally with an outpatient pain provider at [facility]. 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 Kaushik Gustafson. Thank you for allowing the Inpatient Pain Service to be a part of Angie Mosquera's care. The [facility] Inpatient Pain Service will sign off. Please page [phone] with questions. Anthony Shepard PAna, Juice.P.Jolanta., C.S.C.S. 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 IADL/Homemaking Assistance: Required assistance IADL/Homemaking Assistance Comments: Gets help for housecleaning Driving: Does not drive Driving Comments: Friend assists Occupational Role: On disability Occupational Role Comments: Previously worked at a [employer] and [employer] Prior Mobility/Functional Transfers Level of [place]: Needs assistance Gait Devices/Wheelchair Used Comments: No AD since [facility]. Home Equipment Home Adaptive Equipment: Medical [...] surgicalmask, eye protection, and gloves Outcome Measures -[facility] Inpatient Short Form: -[facility] Basic Mobility (V.2) How much help from [...] 3-5 steps with a railing?: A Lot AM-[facility] Basic Mobility (V.2) Raw Score: 20 AM-[facility] Basic Mobility (V.2) Standardized Score: 43.99 Interpretation: Clinicians answer the -[facility] Inpatient Short Form based on [...] independent with ADLs but does have a [facility]FIRMARY ATTENDANT 3 times per week to assist with [...] is currently below her functional baseline, declining mcc facility but agreeable to home health PT [...] She now presented to the ED at [facility] for a second opinion. Review of Systems: [...] (WELLBUTRIN XL) 150 mg, oral, Every morning eqgaybuijk-gnkntuhpawhka-tycd (ESGIC) 50-325-40 mg per tablet 1 tablet, [...] 1 spray as needed. 5 mg THC multivit-min/iron/folic/abf430 (HAIR, SKIN AND NAILS ADVANCED ORAL) 1 [...] have chronic pain and she lost the bellows charger assembler for her [employer] SCS device several months ago. An MRI [...] relieve her symptoms she was seen in [place] ER few days ago and had no [...] as of 06/16/22 0848 TueJun 15, 2022 2706 Given patient's history exam I do have concern for possible underlying cauda equina given her recent falls increased back pain some lower leg weakness this could be secondary to other injury thus difficult to assess and urinary incontinence. Will page Neurology have them evaluate further. [phone] Patient continues to be a poor historian [...] medicine. 2025 Patient will go back to [place] awaiting a MRI and then disposition. 2025 [...] is a the provider I spoke with.Pager #[phone] Final Diagnoses: as of 06/16/22 0848 Weakness [...] a recent fall. Pt was seen in [place] yesterday. Ct scan performed. Pt is here for a second opinion. Elaine Winn R.N. 06/15/22 1108 documented in this encounter Miscellaneous Notes Hospital Course - Maira Haynes M.D. - 06/16/2022 7:30 AM CDT Ms. Mosquera is hospitalized on [facility] Medicine 4 ([facility]) for evaluation and management of [...] Radiology Alfredo Herrera O.P.A.-C. [address] [place] [address] 09/06/2022 Office Visit Orthopedic Surgery Cyrus Plok M.D. [address] [place] [address] Scheduled Referrals Name Type Priority Associated Diagnoses [...] CBC without Differential (06/18/2022 7:50 AM CDT) [facility] gist Method Time Signature Hemoglobin 11.2 [...] City/State/ZIP Code Phon e Number [facility] - [address] [place], [place] [address] [facility] [address] [facility] [address] Basic Metabolic [...] 06/18/2022 DTL Black/ mL/min/BSA 8:56 AM CDT Burundian Comment: ----ADDITIONAL INFORMATION---- Estimated GFR calculated using [...] City/State/ZIP Code Phon e Number [facility] - [address] [place], [place] [address] [facility] 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 The upper [place] intraocular lenses are absent . 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 The upper [place] intraocular lenses are absent . 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 The upper [place] intraocular lenses are absent . 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 The upper [place] intraocular lenses are absent . 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 The upper [place] intraocular lenses are absent . 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 The upper [place] intraocular lenses are absent . Mild mucosal [...] CBC without Differential (06/17/2022 8:00 AM CDT) [facility] Method Time Signature Hemoglobin 10.5 (L) 11.6 [...] City/State/ZIP Code Phon e Number [facility] - [address] [place] [address] [place] [address] [facility] [address] [facility] Basic Metabolic Panel (06/17/2022 8:00 AM [...] 06/17/2022 DTL Black/ mL/min/BSA 9:34 AM CDT Burundian Comment: ----ADDITIONAL INFORMATION---- Estimated GFR calculated using [...] M.D. LAB BLOOD ADD-ON Performing Organization Address [facility] Phon e Number [facility] - 200 [place], [place] [address] [place] [address] Laboratories-[facility] [address] [facility] (ABNORMAL) Dipstick, Urine (06/16/2022 9:32 AM CDT) [facility] gist Method Time Signature Hemoglobin, Large [...] M.D. LAB URINE ORDERABLES Performing Organization Address City/[facility] Phon e Number [facility] - [address] [place] [address] 55 [address] [place] [address] Laboratories-[address] Osmolality, Urine (06/16/2022 9:32 AM CDT) athologist Signature Osmolality, U 745 150 - 1150 06/16/2022 DT mOsm/kg 11:17 AM CDT Specimen Anatomical Collection Method Collection Time Receive d Time (Source) Location / / Volume Laterality Urine 06/16/2022 9:32 AM 2 CDT 10:39 AM CDT Maira Haynes M.D. LAB URINE ORDERABLES Performing Organization Address City/[facility]/ZIP [facility] Phon e Number [facility] - [address] [place] [address] pH, Random, Urine (06/16/2022 9:32 AM CDT) athologist Signature pH, Random, U 5.0 4.5 - 8.0 06/16/2022 DT 11:17 AM CDT Specimen Anatomical Collection Method Collection Time Receive d Time (Source) Location / / Volume Laterality Urine 06/16/2022 9:32 AM 2 CDT 10:39 AM CDT Maira Haynes M.D. LAB URINE ORDERABLES Performing Organization Address City/[facility]/ZIP Code Phon e Number [facility] - [address] (ABNORMAL) Microscopic Manual (06/16/2022 9:32 AM [...] M.D. LAB URINE ORDERABLES Performing Organization Address [facility] Phon e Number [facility] - 200 [place], [place] [address] [facility] [place] [address] [facility] [address] [facility] (ABNORMAL) Urinalysis with Microscopic: Urine, Catheter (06/16/2022 [...] M.D. LAB URINE ORDERABLES Performing Organization Address City/[facility]/ZIP Code Phon e Number [facility] - 200 [place], [place] [address] [facility] [place] [address] [facility]-[address] Vitamin B12 Assay (06/16/2022 7:31 AM [...] BLOOD ADD-ON Performing Organization Address City/[facility] Phon e Number [facility] - [address] Hemoglobin A1c (06/16/2022 7:31 AM CDT) P athologist Signature Hemoglobin A1c, 4.9 4.0 - 5.6 06/16/2022 DTL B % 8:13 AM CDT Specimen Anatomical Collection Method Collection Time Receive d Time (Source) Location / / Volume Laterality Blood (Blood, 06/16/2022 7:31 AM 06/16/20 22 7:51 Venous) CDT AM CDT Kiran Melton M.D. LAB BLOOD ADD-ON Performing Organization Address City/[facility] Phon e Number [facility] - [address] (ABNORMAL) CBC without Differential (06/16/2022 7:31 [...] City/State/ZIP Code Phon e Number [facility] - [address] [place], [place] [address] [facility] [place] [address] [facility] [address] (ABNORMAL) Comprehensive [...] 06/16/2022 DTL Black/ mL/min/BSA 8:22 AM CDT Bur[place]ian Comment: ----ADDITIONAL INFORMATION---- Estimated GFR calculated using [...] City/State/ZIP Code Phon e Number [facility] - 200 [place], [place] [address] [facility] 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 Food and Drug Administration . Fact sheets for this Emergency Use Autho rization (EUA) assay can be found at the following link s: For Healthcare Providers: https://www.fda.gov/media/926576/downloa d For Patients: https://www.fda.gov/media/937394/downloa d SARS Coronavirus 2, Source, Rapid Swab, Nasopharynx 06/15/2022 7:58 PM CDT [facility] Specimen Anatomical Collection Method Collection Time Receive d Time (Source) Location / / Volume Laterality Varies 06/15/2022 7:51 PM 7:58 (Nasopharynx) CDT PM CDT Scooter Tony APRN, C.N.P. LAB MICROBIOLOGY - GENE RAL ORDERABLES Performing Organization Address City/State/ZIP Code Phon e Number [facility] - [address] [place], [place] [address] [address] [place] [address] [facility] [address] [...] 06/15/20 3:21 Venous) CDT PM CDT Narrative [facility] - 06/15/2022 3:54 PM CDT Specimen Information: Specimen ID: [id number] Specimen Type: Blood Specimen Collection Start Date: 06/15/20 ??2:48 PM Specimen Received Date: 06/15/2022 ??3:2 1 PM Specimen ID: [id number] Specimen Type: Blood Specimen Collection Start Date: 06/15/20 ??3:53 PM Specimen Received Date: 06/15/2022 ??3:5 3 PM Demarcus Ernst M.D. LAB BLOOD TROPONIN Performing Organization Address City/State/ZIP Code Phon e Number [facility] - [address] [place] [address] [address] [place] [address] [facility] [address] [facility] DX Hip And Pelvis Left 2-3 [...] Signature Ventricular Rate 58 BPM MUSE ECG/Min MT Interval 154 ms MUSE QRSD Interval 102 ms MUSE QT Interval 442 ms MUSE QTC Interval 433 ms MUSE P Rainier 48 degrees MUSE R Rainier -1 degrees MUSE T Wave Rainier 38 degrees MUSE Specimen Anatomical Collection Method [...] M.D. LAB BLOOD TROPONIN Performing Organization Address City/[facility] Code Phon e Number [facility] - [address] [place], [place] [address] [address] [place] [address] [facility] [address] (ABNORMAL) Hepatic [...] City/State/ZIP Code Phon e Number [facility] - 200 [place], [place] [address] [facility] [place] [address] [facility] [address] [facility] Basic Metabolic Panel (06/15/2022 12:36 PM [...] CDT eGFR-Black/Afric >90 >=60 06/15/2022 [facility] an Burundian mL/min/BSA 1:34 PM CDT Comment: ----ADDITIONAL INFORMATION---- [...] City/State/ZIP Code Phon e Number [facility] - 200 [place], [place] [address] [facility] [place] [address] [facility] [address] [facility] (ABNORMAL) CBC with Differential, Blood (06/15/2022 12:36 [...] M.D. LAB BLOOD ADD-ON Performing Organization Address [facility] Phon e Number [facility] - [address] [place], [place] [address] [place] [id number] [place] [address] Prothrombin Time (PT) (06/15/2022 12:34 PM CDT) P athologist Signature Prothrombin 10.2 9.4 - 12.5 06/15/[address] [facility] Time, P sec 1:10 PM CDT INR 0.9 0.9 - 1.1 06/15/[address] [facility] 1:10 PM CDT Comment: ----ADDITIONAL INFORMATION---- Standard intensity warfarin therapeutic range: 2.0 to 3.0 ?? High intensity warfarin therapeutic rang e: 2.5 to 3.5 Specimen Anatomical Collection Method Collection Time Receive d Time (Source) Location / / Volume Laterality Blood (Blood, 06/15/2022 12:34 06/15/2022 1:03 Venous) PM CDT PM CDT Demarcus Ernst M.D. LAB BLOOD ADD-ON Performing Organization Address City/[facility] Phon e Number [facility] - 200 [place], [place] [address] [place] [address] Interpretation of Outside CT Spine (06/15/2022 [...] Anatomical Region Laterality Modality Head, Neuroradiology RST [facility], [facility], N/A Computed Tomography Neuroradiology FLA LOS, Other [...] Given 06/17/2022 9:20 AM CDT 1,000 mg pxbcvnomadwre-wpqugepy-vsuilsokh in Lipoderm Given 06/18/2022 10 :23 AM [...] Given 06/16/2022 9:16 AM CDT 150 mg ouzrxyunpr-dnxlcbsyxdddm-jros 50-325-40 mg Given 06/17 6:03 PM CDT [...] 2057 (Given - Provider: Erwin Tello R.N.) ousknsicehvkt-bmfhcugm-dukpikjvr in Lipoderm 2%-0.5%-2 % cream 1 g [...] Do NOT crush, chew or open capsule. zjgdfflqvx-pihhcxjgclzsl-mlqr 50-325-40 mg per tablet 1 tablet (ESGIC) 1359 (Given - Provider: Gini M Overly, R.N.)2108 (Given - Provider: Sharifa TaylorNBritton) 1038 (Given - Provider: Kennedi Cabrera APRN, ELEMENTARY VOCAL MUSIC TEACHER, M.S.N.)1803 (Given - Provider: Christiano Moon.NBritton) 1 tablet, oral, Every 6 hours PRN, migraine, Starting on 05/29 at 0107 diphenhydrAMINE-zinc acetate 1 % cream 1 application ( BENADRYL) 1431 (Given - Provider: Gini Newberry R.N.) 1 application, topical, 4 times daily MT N, itching, Starting on Tue06/16/22 at 0306 [...] Erwin Tello RBrittonN.) 0515 (Given - Provider: Erwin gimenez R.N.)1024 (Given - Provider: Raquel Guajardo [...] 1642 (Given - Provider: Sapphire Verma APRN, BRIM CURLER, DNAP) 1 patch, transdermal, Administer [...] as of this encounter Care Teams Life Teacher Relationship Specialty Start Date End Date Elsewhere, Pcp PCP - General Family Medicine 12/25/21 documented as of this encounter
--- OUTSIDE RECORDS SUMMARY | 2022-08-17 06:52 | XMS_ITS | Encounter Summary ---
:1965 Author Organization [facility] Address [address] [place] [address] Care Team Providers Name Role Phone Elsewhere, Pcp Primary Care Provider Unavailable Reason for Visit Reason Comments Followup [facility] Patient Encounter Details Date Type Department Care Team Description 06/15/2022 Clinical Communication Department of [facility], Robert gay ([facility] Neurology in [place], Lil[place] Patient/) [place], [facility] [address] [place], [place] [address] [place] [phone] [place], [place] [phone] (Work) [phone] Social History Tobacco Use Types Packs/Day Years [...] you attend mandaen or Patient refused 2021 amish services? Do [...] She did end up being seeing in [place] and had a CT scan. I told her to followup with them and make sure that the images are sent here for Dr. Diehl to review. Caller was made aware of the two- to four-business day call turnaround time. Date last seen: 11/17/2021 Future appointment: None scheduled Dx: Stroke Cerebrovascular Accident Personal History Allyssa Amaya, Inside Sales Person 06/15/22 8:18 AM CDT documented in this encounter Plan of Treatment Upcoming Encounters Date Type Specialty Care Team Description 09/01/2022 Clinical Communication Admitting/Central Scheduling 09/06/2022 Appointment Radiology Alfredo Herrera O.P.A.-C. [address] [place] [address] 09/06/2022 Office Visit Orthopedic Surgery Cyrus Polk M.D. [address] [place] [phone] documented as of this encounter Visit Diagnoses Not on filedocumented in this encounter Additional Health Concerns Assessment Noted Time PHQ-9 Depression Total Score: 16 02/11/2021 12:00 AM C DT documented as of this encounter Care Teams Senior Information Systems Architect Relationship Specialty Start Date End Date Elsewhere, Pcp PCP - General Family Medicine 12/25/21 documented as of this encounter
--- OUTSIDE RECORDS SUMMARY | 2022-08-17 06:52 | XMS_ITS | Encounter Summary ---
:1965 Author Organization [facility] Address [address] [place] [address] Care Team Providers Name Role Phone Elsewhere, Pcp Primary Care Provider Unavailable Reason for Visit Reason Comments Post-op Problem Encounter Details Date Type Department Care Team Description 06/03/2022 Clinical Communication Department of Cyrus Polk st-op Problem Orthopedic Surgery in [place]ian Souza [place], [place] [address] [place] [address] 200 [place] [phone] Social History Tobacco Use Types Packs/Day Years [...] you attend anabaptist or Patient refused 2021 sabianism services? Do [...] Cyrus Polk M.D. CT CT Job ID: [id number] documented in this encounter Miscellaneous Notes Telephone [...] bent forward again. Please call her at [phone] to discuss. documented in this encounter Plan of Treatment Upcoming Encounters Date Type Specialty Care Team Description 09/01/2022 Clinical Communication Admitting/Central Scheduling 09/06/2022 Appointment Radiology Alfredo Herrera O.P.A.-CBritton [address] [place] [address] 09/06/2022 Office Visit Orthopedic Surgery Cyrus Polk M.D. [address] [place] [address] documented as of this encounter Visit Diagnoses Not on filedocumented in this encounter Additional Health Concerns Assessment Noted Time PHQ-9 Depression Total Score: 16 02/11/2021 12:00 AM C DT documented as of this encounter Care Teams Travel Director Relationship Specialty Start Date End Date Elsewhere, Pcp PCP - General Family Medicine 12/25/21 documented as of this encounter
--- OUTSIDE RECORDS SUMMARY | 2022-08-17 06:52 | XMS_ITS | Encounter Summary ---
:1965 Author Organization [facility] Address 200 [place] [address] Care Team Providers Name Role Phone Elsewhere, Pcp Primary Care Provider Unavailable Encounter Details Date Type Department Care Team Description 06/17/2022 Orders Only RST HIM Latrice, Chronic Pain Syndrome (Prima ry Dx); 200 [facility] Lilian Hughes Transient Ischemic Attack; [place], [place] 200 [facility] Fibromyalgia [phone] [place] [address] Social History Tobacco Use Types Packs/Day Years [...] Appointment Radiology Alfredo Herrera O.P.A.-C. [address] [place] [address] 09/06/2022 Office Visit Orthopedic Surgery Cyrus Polk M.D. [address] [place] [address] documented as of this encounter Visit Diagnoses Diagnosis Chronic Pain Syndrome - Primary Transient Ischemic Attack Fibromyalgia documented in this encounter Additional Health Concerns Assessment Noted Time PHQ-9 Depression Total Score: 16 02/11/2021 12:00 AM C DT documented as of this encounter Care Teams Mumps Developer Relationship Specialty Start Date End Date Elsewhere, Pcp PCP - General Family Medicine 12/25/21 documented as of this encounter
--- OUTSIDE RECORDS SUMMARY | 2022-08-17 06:52 | XMS_ITS | Encounter Summary ---
:1965 Author Organization [facility] Address [address] [place] [address] Care Team Providers Name Role Phone Elsewhere, Pcp Primary Care Provider Unavailable Encounter Details Date Type Department Care Team Description 06/17/2022 Anesthesia Event Department of Radiology, Shantell Verma APRN, GINETTE, DNAP [address] [place] [phone] [facility] M.D. [address] [place] [phone] [place] [phone] [place] [phone] Anesthesia Record Procedure Summary Procedure Name Responsible Anesthesia Start Anesthesia Stop Time Anesthesiologist Time MR BRAIN WITHOUT IV Sapphire Verma APRN, ASSOCIATE PROFESSOR OF SOCIOLOGY, 06/17/22 1446 1702 CONTRAST DNAP Events Date [...] h andoff to the receiving staff during [facility] we 1. Identified the [...] over 3 days 1 patch (TRANSDERM S VENEREAL DISEASE CONTROL HEAD) 1 patch Lactated Ringers Free Drip 850 mL Agents No agents on file. Blood No blood administrations on file. Lines, Drains, and Airways Type Details Placement Removal Wound 05/18/22; 1258; N; 05/18/22 1258 by Incision; Shoulder; Rishi Murillo, R.NBritton Anterior, Left Peripheral IV Placement Date: 06/17/22; 06/17/22 1116 by 06/18 0942 by Placement Time: 1116; Lori Elais, R.N. Raquel Sr, Catheter Size: 20 G; [...] you attend christian or Patient refused 2021 zoroastrian services? Do [...] Notes Anesthesia Postprocedure Evaluation - Maritza Friend, MERCHANDISING MANAGER, ASSOCIATE PROFESSOR OF SOCIOLOGY, DNAP - 06/17/2022 5:09 PM CDT Patient: Angie Mosquera Procedure Summary Date: 06/17/22 Room / Location: Department of Radiology, [facility], in [place], [place] Anesthesia Start: 1446 Anesthesia Stop: 170 [...] ETT location: oral VL device: glide scope Faxon scope blade size: 3 Adult tube size: [...] equina r/o compression Location: Department of Radiology, [facility], in [place], [place] Pertinent components of the patient's history [...] Vertebral Artery (HCC) (+) Dissection Vertebral Artery ([facility]) (+) Transient Ischemic Attack MSK/RHEUM (+) Esophageal [...] with patient /legal guardian or through an hospital aide. Risks/Benefits/Alternatives of Blood transfusion discussed with patient [...] 09/06/2022 Appointment Radiology Alfredo Herrera O.P.A.-C. [address] [place] [phone] 09/06/2022 Office Visit Orthopedic Surgery Cyrus Polk M.D. [address] [place] [phone] documented as of this encounter Procedures Procedure [...] ETT location: oral VL device: glide scope Faxon scope blade size: 3 Adult tube size: [...] ?? Airway event: no complications Sapphire Verma MERCHANDISING MANAGER, ASSOCIATE PROFESSOR OF SOCIOLOGY, DNAP ANESTHESIA ORDERABLES documented in this encounter [...] documented as of this encounter Care Teams Front Maker Lockstitch Relationship Specialty Start Date End Date Elsewhere, Pcp PCP - General Family Medicine 12/25/21 documented as of this encounter
--- OUTSIDE RECORDS SUMMARY | 2022-08-17 06:52 | XMS_ITS | Encounter Summary ---
:1965 Author Organization [facility] Address [address] [place] [address] Care Team Providers Name Role Phone Elsewhere, Pcp Primary Care Provider Unavailable Encounter Details Date Type Department Care Team Description 06/15/2022 Ancillary Procedure Department of Demarcus Ernst, Radiology in [place], [place] [address] [facility] [address] [place] [address] [phone] (Wo rk) Social History Tobacco Use Types [...] Appointment Radiology Alfredo Herrera O.P.ACorazonCBritton [address] [place] [address] 09/06/2022 Office Visit Orthopedic Surgery Cyrus Polk M.D. [address] [place] [address] documented as of this encounter Procedures Procedure [...] Modality Head, Neuroradiology RST LOS, Neuroradiology [facility], N/A Computed Tomography Neuroradiology FLA LOS, [...] FINDINGS: CT HEAD: No interval intracranial hemorr ojn, mass effect, extra-axial fluid collection, hydrocephalus, or [...] documented as of this encounter Care Teams Attendance Secretary Relationship Specialty Start Date End Date Elsewhere, Pcp PCP - General Family Medicine 12/25/21 documented as of this encounter
--- OUTSIDE RECORDS SUMMARY | 2022-08-17 06:53 | XMS_ITS | Encounter Summary ---
:1965 Author Organization [facility] Address [address] [place] [address] Care Team Providers Name Role Phone Elsewhere, Pcp Primary Care Provider Unavailable Encounter Details Date Type Department Care Team Description 05/17/2022 Hospital Encounter Department of Alfredo Herrera Preo perative Exam Laboratory Medicine O.P.A.-C. and Pathology, [employer] 200 [facility], in [place], [place] [phone] [place] [address] [place], [place] (Work) [phone] Social History Tobacco Use Types Packs/Day Years [...] you attend mandaeism or Patient refused 2021 hindu services? Do [...] THC multivit-min/iron/folic/ Take 1 tablet by 0 byx463 (HAIR, SKIN AND mouth daily. NAILS ADVANCED [...] 09/06/2022 Appointment Radiology Alfredo Herrera O.PBrittonAOmar [address] [place] [phone] 09/06/2022 Office Visit Orthopedic Surgery Cyrus Polk M.D. [address] [place] [address] documented as of this encounter Procedures Procedure [...] [facility] - 200 [place], [place] [address] [address] [place] [address] [facility] 200 [facility] Basic Metabolic Panel (05/17/2022 10:50 AM CDT) [...] 05/17/2022 DTL Black/ mL/min/BSA 12:12 PM CDT Macedonian Comment: ----ADDITIONAL INFORMATION---- Estimated GFR calculated [...] Kamara LAB BLOOD ADD-ON Performing Organization Address City/[facility] Phon e Number [facility] - 200 [place], [place] [address] [facility] [place] [address] [facility] 200 [facility] Type and Screen (with reflex Antibody ID) (05/17/2022 10:50 AM CDT) [facility] [employer] Method Time Signature ABORh A Neg Not 05/17/2022 ETRM applicable 7:10 PM CDT Antibody Negative Negative 05/17/2022 ETRM Screen 7:22 PM CDT Type & Screen 07/15/2022 05/17/2022 ETRM Expiration 23:59 7:10 PM CDT Testing [place] DEFAULT 05/17/2022 ETRM Location 12:24 PM CDT Specimen Anatomical Collection Method Collection Time Receive d Time (Source) Location / / Volume Laterality Blood (Blood, 05/17/2022 10:50 05/17/2022 Venous) AM CDT 12:24 PM CDT Alfredo Kamara LAB BLOOD BANK TEST ORDERABL ES Performing Organization Address City/[facility] Phon e Number [facility] - 200 [place], [place] [address] [facility] [place] [address] [facility] 200 [facility] (ABNORMAL) CBC with Differential, Blood (05/17/2022 10:50 AM CDT) [facility] Method Time Signature Hemoglobin 9.2 (L) 11.6 [...] [facility] - [address] [place], [place] [address] [facility] [place] [address] [facility] [address] documented in this encounter Visit Diagnoses Diagnosis Preoperative Exam documented in this encounter Additional Health Concerns Infection Onset Date Last Indicated Resolved Time COVID19 Pending 05/17/2022 05/17/2022 05/17/2022 2:34 PM CDT Assessment Noted Time PHQ-9 Depression Total Score: 16 02/11/2021 12:00 AM C DT documented as of this encounter Care Teams Ebay Reseller Relationship Specialty Start Date End Date Elsewhere, Pcp PCP - General Family Medicine 12/25/21 documented as of this encounter
--- OUTSIDE RECORDS SUMMARY | 2022-08-17 06:53 | XMS_ITS | Encounter Summary ---
:1965 Author Organization [facility] Address [address] [place] [address] Care Team Providers Name Role Phone Elsewhere, Pcp Primary Care Provider Unavailable Encounter Details Date Type Department Care Team Description 05/18/2022 Anesthesia Event RST SEBAS MORAN OR Kaushik Carpenter, [address] [facility] [place] [address] [address] [facility] [phone] [place] [phone] (Wo rk) Anesthesia Record Procedure Summary Procedure [...] to the receiving staff during [facility] we 1. Identified the patient 2. [...] 1500 by Ion, Placement Time: 09; Anita Elils R.N. Ro se V. Catheter Size: 20 [...] by Placement Time: 1220 Ihsan Patel APRN, PRACTICAL NURSE Ihsan Townsend APRN, (created via procedure PRACTICAL NURSE documentation); Mask Ventilation: Easy mask; Type: Standard [...] you attend taoism or Patient refused 2021 temple services? Do [...] Procedure Summary Date: 05/18/22 Room / Location: [place] [address] / [facility] in [place], [place] Anesthesia Start: 1214 Anesthesia Stop: 1415 [...] ETT location: oral VL device: glide scope Firth scope blade size: 3 Adult tube size: [...] event: no complications Anesthesia Procedure Notes - oJnah Mendez M.D. - 05/18/2022 11:29 AM CDT [...] diagnosis: Loose left total shoulder arthroplasty. Location: [place] [address] / [facility] in [place], [place] Providers: Cyrus Polk M.D. 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 Chronic pain - oxy 40 -50 mg daily. Baseline 06/06 Asthma, current smoker documented in this encounter Plan of Treatment Upcoming Encounters Date Type Specialty Care Team Description 09/01/2022 Clinical Communication Admitting/Central Scheduling 09/06/2022 Appointment Radiology Alfredo Herrera O.P.A.-C. [address] [place] [phone] 09/06/2022 Office Visit Orthopedic Surgery Cyrus Polk M.D. [address] [place] [phone] documented as of this encounter Procedures Procedure Name Priority Date/Time Associated Comments Diagnosis LDA ANE ENDOTRACHEAL Routine 05/18/2022 12:20 Res ults for this AIRWAY PM CDT procedure are i n the results section. MC ANE NERVE BLOCK Routine 05/18/2022 11:24 Resul ts for this WITH ULTRASOUND AM CDT procedure ar e in the results section. LA US GUIDE PLC NDL Routine 05/18/2022 11:24 Resu lts for this AM CDT procedure are i n the results section. LA INJ ANES BRACHIAL Routine 05/18/2022 11:24 Res [...] ETT location: oral VL device: glide scope Firth scope blade size: 3 Adult tube size: [...] INJ ANES BRACHIAL PLEX, LA US GUIDE [facility] NDL, MC ANE NERVE BLOCK WITH ULTRASOUND [...] documented as of this encounter Care Teams Midwife Practitioner Relationship Specialty Start Date End Date Elsewhere, Pcp PCP - General Family Medicine 12/25/21 documented as of this encounter
--- OUTSIDE RECORDS SUMMARY | 2022-08-17 06:53 | XMS_ITS | Encounter Summary ---
:1965 Author Organization [facility] Address [address] [place] [address] Care Team Providers Name Role Phone Elsewhere, Pcp Primary Care Provider Unavailable Reason for Visit Reason Comments Scooter prescription Encounter Details Date Type Department Care Team Description 05/19/2022 Clinical Communication Department of Robert Diehl prescription Neurology in Lilian Celaya [place], [facility] [place], [place] [address] [place] [phone] [place], [place] [phone] (Work) [phone] Social History Tobacco Use Types Packs/Day Years [...] you attend judaism or Patient refused 2021 adventism services? Do [...] yesterday and is currently still admitted to [facility] until tomorrow. I encouraged her to [...] Stroke Cerebrovascular Accident Personal History Olivia Pedroza, Baby Nurse 05/19/22 11:51 AM CDT documented in this encounter Plan of Treatment Upcoming Encounters Date Type Specialty Care Team Description 09/01/2022 Clinical Communication Admitting/Central Scheduling 09/06/2022 Appointment Radiology Alfredo Herrera O.P.A.-C. [address] [place] [phone] 09/06/2022 Office Visit Orthopedic Surgery Cyrus Polk M.D. [address] [place] [address] documented as of this encounter Visit Diagnoses Not on filedocumented in this encounter Additional Health Concerns Assessment Noted Time PHQ-9 Depression Total Score: 16 02/11/2021 12:00 AM C DT documented as of this encounter Care Teams Food Court Team Member Relationship Specialty Start Date End Date Elsewhere, Pcp PCP - General Family Medicine 12/25/21 documented as of this encounter
--- OUTSIDE RECORDS SUMMARY | 2022-08-17 06:53 | XMS_ITS | Encounter Summary ---
:1965 Author Organization [facility] Address [address] [place] [address] Care Team Providers Name Role Phone Elsewhere, Pcp Primary Care Provider Unavailable Reason for Referral Outpatient (Routine) - Closed Specialty Diagnoses / Procedures Referred By Contact Refer red To Contact Social Work Diagnoses Pain Shoulder Left Preoperative Exam Jenna Zaldivar [place] M.D. Referral ID Status Reason Start Date Expiration Date Visits Requ ested Visits Authorized [id number] Closed 05/10/2022 05/10/2023 1 1 Reason for Visit Reason Comments Pre-visit Testing Orders Encounter Details Date Type Department Care Team Description 05/07/2022 Clinical Communication Department of Jam, Pre- visit Testing Orthopedic Surgery Cyrus Souza M.D. Orders in [address] [place] [phone] [place], [place] [phone] (Work) [phone] Social History Tobacco Use Types Packs/Day Years [...] you attend mormonism or Patient refused 2021 mu-ism services? Do [...] or the highest technical, or vocational p Pharnextram degree you have received? Sex Assigned at Date Recorded Female 03/01/2019 10:12 AM CDT documented as of this encounter Miscellaneous Notes Telephone Encounter - Deann Watkins - 05/07/2022 8:02 AM CDT Please sign order documented in this encounter Plan of Treatment Upcoming Encounters Date Type Specialty Care Team Description 09/01/2022 Clinical Communication Admitting/Central Scheduling 09/06/2022 Appointment Radiology Alfredo Herrera O.P.A.-C. [address] [place] [phone] 09/06/2022 Office Visit Orthopedic Surgery Cyrus Polk M.D. [address] [place] [phone] Scheduled Referrals Name Type Priority Associated Diagnoses [...] documented as of this encounter Care Teams Automatic Nailing Machine Feeder Relationship Specialty Start Date End Date Elsewhere, Pcp PCP - General Family Medicine 12/25/21 documented as of this encounter
--- OUTSIDE RECORDS SUMMARY | 2022-08-17 06:53 | XMS_ITS | Encounter Summary ---
:1965 Author Organization [facility] Address [address] [place] [address] Care Team Providers Name Role Phone Elsewhere, Pcp Primary Care Provider Unavailable Encounter Details Date Type Department Care Team Description 05/18/2022 Ancillary Procedure Department of Anesthesiology, [place] Social History Tobacco Use Types Packs/Day Years [...] you attend confucianism or Patient refused 2021 orthodox services? Do [...] 09/06/2022 Appointment Radiology Alfredo Herrera O.P.A.-C. [address] [place] [phone] 09/06/2022 Office Visit Orthopedic Surgery Cyrus Polk M.D. [address] [place] [address] documented as of this encounter Procedures Procedure [...] documented as of this encounter Care Teams Painter Supervisor Relationship Specialty Start Date End Date Elsewhere, Pcp PCP - General Family Medicine 12/25/21 documented as of this encounter
--- OUTSIDE RECORDS SUMMARY | 2022-08-17 06:53 | XMS_ITS | Encounter Summary ---
:1965 Author Organization [facility] Address [address] [place] [address] Care Team Providers Name Role Phone Elsewhere, Pcp Primary Care Provider Unavailable Encounter Details Date Type Department Care Team Description 05/03/2022 Hospital Encounter Department of Laboratory Shauna Rubin, Anemia Medicine and Pathology, [facility] [place] [address] [place] [phone] (Wo rk) Social History Tobacco Use Types [...] you attend rastafari or Patient refused 2021 scientologist services? Do [...] THC multivit-min/iron/folic/ Take 1 tablet by 0 gbm765 (HAIR, SKIN AND mouth daily. NAILS ADVANCED [...] 09/06/2022 Appointment Radiology Alfredo Herrera O.P.A.-C. 200 [place] [phone] 09/06/2022 Office Visit Orthopedic Surgery Cyrus Polk M.D. 200 [place] [address] documented as of this encounter Procedures Procedure [...] Venous) AM CDT 10:53 AM CDT Narrative [facility] - 05/03/2022 11:47 AM CDT Specimen Information: Specimen ID: [id number] Specimen Type: Blood Specimen Collection Start Date: 10:11 AM Specimen Received Date: 05/03/2022 10:53 AM Specimen ID: [id number] Specimen Type: Blood Specimen Collection Start Date: 2 10:11 AM Specimen Received Date: 05/03/2022 10:53 AM Specimen ID: [id number] Specimen Type: Blood Specimen Collection Start Date: 10:11 AM Specimen Received Date: 05/03/2022 10:53 AM Specimen ID: [id number] Specimen Type: Blood Specimen Collection Start Date: 2 10:11 AM Specimen Received Date: 05/03/2022 10:32 AM Specimen ID: [id number] Specimen Type: Blood Specimen Collection Start Date: 10:11 AM Specimen Received Date: 05/03/2022 11:44 AM Shauna Rubin APRN C.N.P., M.S.N. LAB BLOOD ADD-ON Performing Organization Address City/State/ZIP Code Phon e Number [place] [address] [place], [place] [address] [facility] [place] [address] Ltac, Located Within [facility] [address] documented in this encounter Visit Diagnoses Diagnosis Anemia documented in this encounter Additional Health Concerns Assessment Noted Time PHQ-9 Depression Total Score: 16 02/11/2021 12:00 AM C DT documented as of this encounter Care Teams Plant Health Manager Relationship Specialty Start Date End Date Elsewhere, Pcp PCP - General Family Medicine 12/25/21 documented as of this encounter
--- OUTSIDE RECORDS SUMMARY | 2022-08-17 06:53 | XMS_ITS | Encounter Summary ---
:1965 Author Organization [facility] Address [address] [place] [address] Care Team Providers Name Role Phone Elsewhere, Pcp Primary Care Provider Unavailable Reason for Visit Reason Comments Pre-visit Intake Encounter Details Date Type Department Care Team Description 05/12/2022 Clinical Communication Department of Cyrus Polk e-visit Intake Orthopedic Surgery Lilian Souza in [address] [place] [phone] [place], [place] [phone] (Work) [phone] Social History Tobacco Use Types Packs/Day Years [...] you attend mormon or Patient refused 2021 advent services? Do [...] Appointment Radiology Alfredo Herrera O.P.AOmar [address] [place] [phone] 09/06/2022 Office Visit Orthopedic Surgery Cyrus Polk M.D. [address] [place] [address] documented as of this encounter Visit Diagnoses Not on filedocumented in this encounter Additional Health Concerns Assessment Noted Time PHQ-9 Depression Total Score: 16 02/11/2021 12:00 AM C DT documented as of this encounter Care Teams Counterperson Relationship Specialty Start Date End Date Elsewhere, Pcp PCP - General Family Medicine 12/25/21 documented as of this encounter
--- OUTSIDE RECORDS SUMMARY | 2022-08-17 06:53 | XMS_ITS | Encounter Summary ---
:1965 Author Organization [facility] Address [address] [place] [address] Care Team Providers Name Role Phone Elsewhere, Pcp Primary Care Provider Unavailable Reason for Visit Reason Comments Discharge Planning Discharge Planning Encounter Details Date Type Department Care Team Description 05/06/2022 Clinical Communication Department of Kaushik Portillo Di scharge Planning Orthopedic Surgery R.N. (Discharge in [place] [address] [facility] Planning) [place], [place] [address] [place] [phone] [place], [place] [phone] (Work) [phone] Social History Tobacco Use Types Packs/Day Years [...] you attend mormon or Patient refused 2021 restorationism services? Do [...] home. The role of the caregiver and regional driver will be filled by the patient's [...] to her history of falling. I encourage [facility] to contact this patient, prior to surgery, [...] Appointment Radiology Alfredo Herrera O.P.A.-C. [address] [place] [address] 09/06/2022 Office Visit Orthopedic Surgery Cyrus Polk M.D. [address] [place] [address] documented as of this encounter Visit Diagnoses Not on filedocumented in this encounter Additional Health Concerns Assessment Noted Time PHQ-9 Depression Total Score: 16 02/11/2021 12:00 AM C DT documented as of this encounter Care Teams Cotton Gin Yard Supervisor Relationship Specialty Start Date End Date Elsewhere, Pcp PCP - General Family Medicine 12/25/21 documented as of this encounter
--- OUTSIDE RECORDS SUMMARY | 2022-08-17 06:53 | XMS_ITS | Encounter Summary ---
:1965 Author Organization [facility] Address [address] [place] [address] Care Team Providers Name Role Phone Elsewhere, Pcp Primary Care Provider Unavailable Reason for Visit Outpatient (Routine) - Closed Specialty Diagnoses / Procedures Referred By Contact Refer red To Contact Anesthesiology Diagnoses Anemia Shauna Rubin APRN, [facility] C.N.P., M.S.N. [address] [place] [phone] Referral ID Status Reason Start Date Expiration Date Visits Requ ested Visits Authorized [id number] Closed 04/22/2022 04/22/2023 1 1 Encounter Details Date Type Department Care Team Description 05/03/2022 Comprehensive Visit Preoperative Evaluation Shauna Gomez, NIKKY, C.N.P., M.S.N. [address] [place] [phone] [facility] in [place], Peter Tse R.N. [address] [place] [phone] [place] [address] [place] [phone] Social History Tobacco Use Types Packs/Day [...] you attend mandaen or Patient refused 2021 muslim services? Do [...] iron in the past when living in [place] (approximately 5-6 years ago). Therapy Plan: With the planned ARTHROPLASTY REPLACEMENT TOTAL SHOULDER on 05/18/2022 the patient would meet criteria based on the Preoperative Anemia Treatment Algorithm and RN Anemia Protocol to receive 1 x 1,000 mgdose of IV iron dextran. Patient agrees with this and would like this administered @ [facility]. I provided the patient with the education pamphlet LX3474-55 Treating Anemia Before Surgery andanswered her questions about anemia and IV iron dextran. I spent 30 minutes with the patient. documented in this encounter Plan of Treatment Upcoming Encounters Date Type Specialty Care Team Description 09/01/2022 Clinical Communication Admitting/Central Scheduling 09/06/2022 Appointment Radiology Alfredo Herrera O.P.A.-C. [address] [place] [address] 09/06/2022 Office Visit Orthopedic Surgery Cyrus Polk M.D. [address] [place] [address] documented as of this encounter Visit Diagnoses Diagnosis Anemia documented in this encounter Additional Health Concerns Assessment Noted Time PHQ-9 Depression Total Score: 16 02/11/2021 12:00 AM C DT documented as of this encounter Care Teams Service Planner Relationship Specialty Start Date End Date Elsewhere, Pcp PCP - General Family Medicine 12/25/21 documented as of this encounter
--- OUTSIDE RECORDS SUMMARY | 2022-08-17 06:53 | XMS_ITS | Encounter Summary ---
:1965 Author Organization [facility] Address [address] [place] [address] Care Team Providers Name Role Phone Elsewhere, Pcp Primary Care Provider Unavailable Encounter Details Date Type Department Care Team Description 05/18/2022 Surgery RST SEBAS MORAN OR Cyrus Polk, ARTHROPLASTY REPLACEMENT [address] [facility] [place] [address] [address] [facility] [phone] [place] [address] Social History Tobacco Use Types Packs/Day Years [...] you attend religion or Patient refused 2021 jainism services? Do [...] or the highest technical, or vocational p fivesquids.co.ukram degree you have received? Sex Assigned at [...] AM CDT DISCHARGE SUMMARY BRIEF OVERVIEW Hospital: [facility] Discharge Provider: Cyrus Polk M.D. Primary [...] R, M.D. RST ROEI OR DISCHARGE DISPOSITION [facility] Care [facility] [6] ACTIVE ISSUES REQUIRING FOLLOW UP This document serves as a prescription to continue physical therapy, medications, and labs or x-raysif ordered/required. If you have any questions or concerns about surgery or upcoming appointments, please do not hesitateto contact Dr. Polk's office at [phone] during regular business hours (8am-5pm M-F). For emergencies on the weekend or after hours, you may contact Dr. Polk's service via the [facility] pooling operator at [phone]. Details for your 6 week follow-up appointment [...] to: Cyrus Polk MD Dept of Orthopedics [address], [address] None OUTPATIENT FOLLOW UP For appointment details [...] THC multivit-min/iron/folic/ Take 1 tablet by 0 [id number] (HAIR, SKIN AND mouth daily. NAILS ADVANCED [...] 6 pm, please page Jam service at [phone] For urgent matters from 6 pm until 6 am, please page Ortho House at [facility] [phone] Jane Nguyen PharmBrittonDBritton, R.Ph. - 05/19/2022 8:12 [...] the hospital are identified at this time. Jnae Nguyen Pharm.D., R.Ph. [phone] Kaushik Cadena M.D. - 05/19/2022 7:34 AM [...] 6 pm, please page Jam service at [phone] For urgent matters from 6 pm until 6 am, please page Ortho [place] at [facility] [phone] Paco Valentine - 05/18/2022 9:47 AM CDT Encounter: AM Admit Deanna Tradition: No jainism affiliation. Ms. Mosquera did not express any spiritual needs at this time. Plan: Will remain available for spiritual care as needed or requested. Chaplains can be contacted bypaging [phone] ([facility]). Rodrigo Preston, Pharm.D., R.Ph. - 05/18/2022 [...] Take 150 mg by mouth every morning. qunraxvjch-abqcwhocelkhy-fcbw (ESGIC) 50-325-40 mg per tablet Past Week [...] 1 spray as needed. 5 mg THC multivit-min/iron/folic/bkt934 (HAIR, SKIN AND NAILS ADVANCED ORAL) Past [...] (HCC) ??? Nicotine Dependence Unspecified ??? Other Social Science Teacher Current Drug Therapy ??? Direct Infection [...] Profile Lives With: Alone Receives Help From: diet attendant, Family, Friend(s) ADL Assistance: Required assistance ADL Assistance Comments: Gets help from [employer] for her bath/shower 3x/week, and for her meals IADL/Homemaking Assistance: Required assistance IADL/Homemaking Assistance Comments: Gets help for housecleaning Driving: Does not drive Driving Comments: takes her cane and medical alert with her. Occupational Role: On disability Occupational Role Comments: Previously worked at a [employer] Prior Mobility/Functional Transfers Level of [place]: Needs assistance Previous Transfer/Mobility Assistance Comments: Patient [...] mask during therapy session: yes Outcome Measures -[facility] Basic [facility] (V.2) Raw Score: 18 -[facility] Basic Mobility (V.2) Standardized Score: 41.05 Interpretation: Clinicians answer the -[facility] [...] Nurse Referral Reason: Discharge Planning Primary Language: Moroccan [facility] Services Used: No Person(s) present during interview: Person(s) Present During Interview: patient History of Present Illness #1 Primary Osteoarthritis Shoulder Left Social History Support System: children, rehabilitation caseworker/social professionals, friends/neighbors and home care staff Patient's Home [...] Calm, Oriented Communication: Talks, Understands speaking, Understands Moroccan Shopping: Needs assistance Transportation: Support from family Medication Management: Needs assistance Housekeeping: Needs assistance Meal Prep: Needs assistance Managing Finances: Independent Assistive Devices: Grab bars - wall, Eyeglasses Services/Resources: Other (comment) Agency Name: [facility] Services Provided: [employer] services 3x/week, nurse visits every other week Baseline Services/Resources Primary care clinic and provider: [facility] Phone: Fax: Anticipated Needs Functional Status: Transfer to/from bed, chair, etc., Bathing, Dressing, Grooming/hygeine, Housekeeping, Shopping, Meal preparation, Mobility, Medication set-up/administration, Transportation use (drive car, use taxi/bus) Services/Resources: Other (comment) Agency Name: [facility] Services Provided: [employer] services 3x/week, nurse visits every other week Transportation Needs: Support from family Does the patient need discharge transport arranged?: No Ride and Caregiver Arranged: Yes Anticipated Discharge Destination: Home-Health Care [facility] ASSESSMENT / PLAN Assessment: The grain elevator superintendent met with Angie Msoquera to discuss her current hospitalization and home goingneeds. The patient was unaccompanied. The patient was a reliable historian. The role of grain elevator superintendent was reviewed. The patient reviewed her prior level of care and support system. The patient receives support from her son, friends and home care staff. Patient reported her son lives in the same apartment as her. She also stated getting [employer] services 3x/week and a nurse visits her every other week. The patient described her living environment as a two bedroom apartment. Housekeeping, grocery shopping, meal prep, and other household responsibilities have previously been completed by patient, patient's son and patient's caregiver(s). grain elevator superintendent discussed the patient's potential needs at [facility] based on their home setting, [...] identified the following as their current vendor(s): [facility]. During this visit patient verbalized she is hoping to increase her [employer] hours and also inq uired about getting a scooter to assist in her mobility. Patient went on to share she is unstable attimes due to her stroke history. She thought perhaps her neurology doctor would be able to help her get a scooter. RN CM recommended she follow up with the [facility] in regards to wanting more [employer] hours. She was also recommended to follow up with her primary care provider to provide durable medical equipment justification for a scooter, as she is currently hospitalized for orthopedic surgery. Patient verbalized understanding. Patient informed RN ROWAN would be reconnecting her [employer] services and nurse visits with [facility]. Patient agreeable to RN CM completing this and even provided RN CM the name and contact of her [employer] and RN. After reviewing the patient's chart and meeting with the patient, the grain elevator superintendent deemed the LACE+/readmission questions were not necessary. The patient reports understanding that she will dismiss from the hospital when medically stable. Pending hospital course and medical readiness, no barriers to dismissal have been identified at this time. Plan: Patient to discharge with home health care. [facility] Contact: RADHA Palomino ATTN: Georgette NURSING: [...] directive. PRIMARY SERVICE: - Please provide a non-[place] home health order for resumption of previous [...] dismissal will be provided by family. 3. grain elevator superintendent recommended reaching out to family, friends, and neighbors for assistance. 4. grain elevator superintendent provided information regarding the dismissal process. 5. grain elevator superintendent placed or requested the following hospital-based consult orders and/or referrals:None. 6. grain elevator superintendent will continue to assess for homegoing needs with the interdisciplinary team. 7. grain elevator superintendent encouraged the patient to reach out with [...] and intact. 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 Patient expects RN from [facility] to visit on Tuesday, May 24. Patient's friend will transport home. Medications including: oxycodone and tramadol were picked up [facility]. documented in this encounter OR Notes Op Note - Cyrus Polk M.D. - 05/18/2022 5:54 PM CDT STAFF: Cyrus Polk M.D. RESIDENT: Jenna Zaldivar M.D. PRE-OPERATIVE DIAGNOSIS Left dislocated reverse arthroplasty. POST-OPERATIVE DIAGNOSIS Left dislocated reverse arthroplasty. A medical assistant instructor actively participated and was necessary for one [...] glenosphere, placement new humeral stem and tray, [id number] Cyrus Polk M.D. CT CT Job ID: [id number] documented in this encounter Miscellaneous Notes Hospital [...] Appointment Radiology Alfredo Herrera O.P.A.-C. [address] [place] [address] 09/06/2022 Office Visit Orthopedic Surgery Cyrus Polk M.D. [address] [place] [address] documented as of this encounter Procedures Procedure [...] with Differential, Blood (05/20/2022 3:43 AM CDT) [facility] Method Time Signature Hemoglobin 8.4 [...] Organization Address City/State/ZIP Code Phon e Number [facility] - [address] [place] [address] [facility] [place] [address] [facility] 200 [facility] (ABNORMAL) CBC with Differential, Blood (05/19/2022 3:26 AM CDT) [facility] Method Time Signature Hemoglobin 7.6 [...] Organization Address City/State/ZIP Code Phon e Number [facility] - [address] [place], [place] [address] [facility] [place] [address] [facility] [address] [facility] (ABNORMAL) Basic Metabolic Panel (05/19/2022 3:26 AM [...] 05/19/2022 DTL Black/ mL/min/BSA 4:38 AM CDT Vincentian Comment: ----ADDITIONAL INFORMATION---- Estimated GFR calculated using [...] Organization Address City/State/ZIP Code Phon e Number [facility] - [address] [place], [place] [address] [facility] [place] [address] [facility] [address] DX Shoulder Left [...] postoperative purposes. Jenna WEIG DIAGNOSTIC IMAGING PROCE [facility] Surgical Pathology, Frozen Lab (05/18/2022 1:04 PM CDT) Component Value Ref Test Analysis Performed At [facility] Range Method Time Signature 05/20/2022 [...] Organization Address City/State/ZIP Code Phon e Number [facility] - [address] [place], [place] [address] [facility] [place] [address] [facility] [address] Bacteria Cult, Aerobe / Anaerobe+Susc (05/18/2022 1:03 PM CDT) [facility] Method Time Signature Bacteria Cult, No growth 06/01/2022 DTL Aerobe/Anaerob after 14 6:02 PM CDT e+Susc days of incubation. Specimen Anatomical Collection Method Collection Time Receive d Time (Source) Location / / Volume Laterality Shoulder, Left 05/18/2022 1:03 PM 022 5:21 CDT PM CDT Comment: Specimen Source Site: Tissue #1 Narrative [facility] - 06/01/2022 6:02 PM CDT Bacterial Culture: Placed in Bactec aero bic and Bactec anaerobic bottles Cyrus Polk M.D. LAB MICROBIOLOGY - GENERAL O RDSONIA Performing Organization Address City/[facility] [address] Phon e Number [facility] - [address] [place], [place] [address] [place], [place] [id number] [place] [address] 200 [facility] Bacteria Cult, Aerobe / Anaerobe+Susc (05/18/2022 [...] Tissue #3 Narrative [facility] - 06/01/2022 6:02 PM CDT Bacterial Culture: Placed in Bactec aero bic and Bactec anaerobic bottles Cyrus Polk M.D. LAB MICROBIOLOGY - GENERAL O MARY Performing Organization Address City/[facility] [address]/[facility] Phon e Number [facility] - [address] [place], [place] [address] [place] [address] [facility] 200 [facility] Bacteria Cult, Aerobe / Anaerobe+Susc (05/18/2022 [...] Specimen Source Site: Tissue #2 Narrative [facility] - 06/01/2022 6:02 PM CDT Bacterial Culture: Placed in Bactec aero bic and Bactec anaerobic bottles Cyrus Polk M.D. LAB MICROBIOLOGY - GENERAL O RDERABLES Performing Organization Address City/State/ZIP Code Phon e Number [facility] - [address] [place], [place] [address] [facility] [place] [address] Formerly [facility] [address] documented in [...] (COMPLETED) 1240 (Given - Provider: Ihsan Townsend, CT MRI TECHNOLOGIST, ARCH CUSHION PRESS OPERATOR) 2,000 mg (rounded from 1,652.5 mg [...] (TORADOL) (COMPLETED) 170 ( Given - Provider: Crorie Toscano R.N.)2124 (Given - Provider: Jere Levy [...] 1240 (Given - Provider: Ihsan Townsend APRN, ARCH CUSHION PRESS OPERATOR) 1,000 mg (1 g), intravenous, at [...] Comment: pt request) 0907 (Given - Provider: sIaura Vu R.N.) 300 mg, oral, 2 times [...] 2 hour NV N, indigestion, Starting on Tue05/18/22 at 1608, [...] Provider: Corrie Toscano RBrittonN.)2339 (Given - Provider: Catlaina Mccloud, R.N.) 0339 (Given - Provider: Catalina [...] over 3 days 1 patch (TRANSDERM S ENGINEERING ASSOCIATE) (CANCELED) 1118 (Medication Applied - Provider: [...] documented as of this encounter Care Teams Wallpaper Cleaner Relationship Specialty Start Date End Date Elsewhere, Pcp PCP - General Family Medicine 12/25/21 documented as of this encounter
--- OUTSIDE RECORDS SUMMARY | 2022-08-17 06:53 | XMS_ITS | Encounter Summary ---
:1965 Author Organization [facility] Address [address] [place] [address] Care Team Providers Name Role Phone Elsewhere, Pcp Primary Care Provider Unavailable Encounter Details Date Type Department Care Team Description 05/18/2022 - Hospital Encounter [facility] Mable Polk In fection Of Left Shoulder In Infectious And Parasitic Diseases Classified Elsewhere (HCC) (Primary Dx); 05/20/2022 Hospital, Gnosticism Cyrus Souza M.D. Shoulder Joint Disorder Left; [place] [address] [facility] Pain Shoulder Left; Building, [place], [place] Primary Os teoarthritis Shoulder Left Floor [address] [address] [facility] [phone] [place], [place] (Work) [address] Social History Tobacco Use [...] you attend pentecostalism or Patient refused 2021 shinto services? Do [...] AM CDT DISCHARGE SUMMARY BRIEF OVERVIEW Hospital: [facility] Discharge Provider: Cyrus Polk M.D. Primary [...] RST ROEI OR DISCHARGE DISPOSITION [place] [facility] [place]6] ACTIVE ISSUES REQUIRING FOLLOW UP This document serves as a prescription to continue physical therapy, medications, and labs or x-raysif ordered/required. If you have any questions or concerns about surgery or upcoming appointments, please do not hesitateto contact Dr. Polk's office at [phone] during regular business hours (8am-5pm M-F). For emergencies on the weekend or after hours, you may contact Dr. Polk's service via the [facility] zipper machine operator at [phone]. Details for your 6 week follow-up appointment [...] to: Cyrus Polk MD Dept of Orthopedics [address], [address] None OUTPATIENT FOLLOW UP For appointment details [...] THC multivit-min/iron/folic/ Take 1 tablet by 0 [id number] (HAIR, SKIN AND mouth daily. NAILS ADVANCED [...] mask during therapy session: yes Outcome Measures -[facility] Inpatient Short Form: -[facility] Basic Mobility (V.2) How [...] 3-5 steps with a railing?: A Little AM-[facility] Basic Mobility (V.2) Raw Score: 18 AM-[facility] Basic Mobility (V.2) Standardized Score: 41.05 Interpretation: Clinicians answer the -[facility] Inpatient Short Form based [...] 6 pm, please page Jam service at [phone] For urgent matters from 6 pm until 6 am, please page [facility] at [facility] [phone] Jane Nguyen PharmBrittonD., R.Ph. - 05/19/2022 8:12 [...] the hospital are identified at this time. aJne Nguyen Pharm.D., R.Ph. [phone] Kaushik Cadena M.D. - 05/19/2022 7:34 AM [...] 6 pm, please page Jam service at [phone] For urgent matters from 6 pm until 6 am, please page Ortho [facility] at [facility] [phone] Paco Valentine - 05/18/2022 9:47 AM CDT Encounter: AM Admit Deanna Tradition: No shinto affiliation. Ms. Mosquera did not express any spiritual needs at this time. Plan: Will remain available for spiritual care as needed or requested. [facility] [phone] ([facility]). Rodrigo Preston, Mynor, R.Ph. - 05/18/2022 [...] Take 150 mg by mouth every morning. qboiopxfma-gzlkohoffxcur-elcb (ESGIC) 50-325-40 mg per tablet Past Week [...] 1 spray as needed. 5 mg THC multivit-min/iron/folic/upw366 (HAIR, SKIN AND NAILS ADVANCED ORAL) Past [...] (HCC) ??? Nicotine Dependence Unspecified ??? Other Chcf Current Drug Therapy ??? Direct Infection Of [...] Profile Lives With: Alone Receives Help From: public space attendant, Family, Friend(s) ADL Assistance: Required assistance ADL Assistance Comments: Gets help from APPLE CHECKER for her bath/shower 3x/week, and for her meals IADL/Homemaking Assistance: Required assistance IADL/Homemaking Assistance Comments: Gets help for housecleaning Driving: Does not drive Driving Comments: takes her cane and medical alert with her. Occupational Role: On disability Occupational Role Comments: Previously worked at a [employer] Prior Mobility/Functional Transfers Level of [place]: Needs assistance Previous Transfer/Mobility Assistance Comments: Patient [...] AM-[facility] Inpatient Short Form: AM-PAC Basic [...] 3-5 steps with a railing?: A Little -[facility] Basic Mobility (V.2) Raw Score: 18 -[facility] Basic Mobility (V.2) Standardized Score: 41.05 Interpretation: Clinicians answer the -[facility] Inpatient Short Form based [...] Nurse Referral Reason: Discharge Planning Primary Language: Lithuanian Bolt Sorter Services Used: No Person(s) present during interview: Person(s) Present During Interview: patient History of Present Illness #1 Primary Osteoarthritis Shoulder Left Social History Support System: children, case management director/social sciences lecturer, friends/neighbors and home care staff Patient's Home [...] Calm, Oriented Communication: Talks, Understands speaking, Understands Lithuanian Shopping: Needs assistance Transportation: Support from family Medication Management: Needs assistance Housekeeping: Needs assistance Meal Prep: Needs assistance Managing Finances: Independent Assistive Devices: Grab bars - wall, Eyeglasses Services/Resources: Other (comment) Agency Name: [facility] Services Provided: APPLE CHECKER services 3x/week, nurse visits every other week Baseline Services/Resources Primary care clinic and provider: [facility] Phone: Fax: Anticipated Needs Functional Status: Transfer to/from bed, chair, etc., Bathing, Dressing, Grooming/hygeine, Housekeeping, Shopping, Meal preparation, Mobility, Medication set-up/administration, Transportation use (drive car, use taxi/bus) Services/Resources: Other (comment) Agency Name: [facility] Services Provided: APPLE CHECKER services 3x/week, nurse visits every other week Transportation Needs: Support from family Does the patient need discharge transport arranged?: No Ride and Caregiver Arranged: Yes Anticipated Discharge Destination: [place] [facility] [place]ESSMENT / PLAN Assessment: The nutritionist met with Angie Mosquera to discuss her current hospitalization and home goingneeds. The patient was unaccompanied. The patient was a reliable historian. The role of nutritionist was reviewed. The patient reviewed her prior level of care and support system. The patient receives support from her son, friends and home care staff. Patient reported her son lives in the same apartment as her. She also stated getting APPLE CHECKER services 3x/week and a nurse visits her every other week. The patient described her living environment as a two bedroom apartment. Housekeeping, grocery shopping, meal prep, and other household responsibilities have previously been completed by patient, patient's son and patient's caregiver(s). nutritionist discussed the patient's potential needs at [facility] based on their home setting, previous needs and responsibilities, homebound status, and relevantassessments with the patient. The patient will be safe and supported to return home with [facility] or previous services noted above when medically ready. Support will be provided by son, friends and home care staff. The patient demonstrated understanding when discussing her home going plans and anticipated needs. At this time, the care team anticipates the patient requires the following service(s) to be reconnected: home healthcare. The patient identified the following as their current vendor(s): [facility]. During this visit patient verbalized she is hoping to increase her APPLE CHECKER hours and also inq uired about getting a scooter to assist in her mobility. Patient went on to share she is unstable attimes due to her stroke history. She thought perhaps her neurology doctor would be able to help her get a scooter. RN ROWAN recommended she follow up with the [facility] in regards to wanting more APPLE CHECKER hours. She was also recommended to follow up with her primary care provider to provide durable medical equipment justification for a scooter, as she is currently hospitalized for orthopedic surgery. Patient verbalized understanding. Patient informed RN CM would be reconnecting her APPLE CHECKER services and nurse visits with [facility]. Patient agreeable to RN CM completing this and even provided RN CM the name and contact of her APPLE CHECKER and RN. After reviewing the patient's chart and meeting with the patient, the nutritionist deemed the LACE+/readmission questions were not necessary. The patient reports understanding that she will dismiss from the hospital when medically stable. Pending hospital course and medical readiness, no barriers to dismissal have been identified at this time. Plan: Patient to discharge with home health care. [facility] Contact: RADHA Palomino ATTN: Georgette NURSING: [...] directive. PRIMARY SERVICE: - Please provide a non-[facility] health order for resumption of previous [...] dismissal will be provided by family. 3. nutritionist recommended reaching out to family, friends, and neighbors for assistance. 4. nutritionist provided information regarding the dismissal process. 5. nutritionist placed or requested the following hospital-based consult orders and/or referrals:None. 6. nutritionist will continue to assess for homegoing needs with the interdisciplinary team. 7. nutritionist encouraged the patient to reach out with [...] falls. Patient will discharge to home with [facility] reconnect. Identify possible barriers to meeting goals/advancing plan of care: none End of Shift Summary: Patient stayed on schedule with prn pain meds (Tramadol and oxycodone) throughout the shift. Encouraged using ice packs to help with pain and swelling. Patient's primapore dressing was changed to Aquacell AG and is clean, dry and intact. Patient has baseline numb/tingling, moderate poll watcher, skin pink and warm with +2 pulses. Patient expects RN from [facility] to visit on Tuesday, May 24. Patient's friend will transport home. Medications including: oxycodone and tramadol were picked up [facility]. documented in this encounter OR Notes Op Note - Cyrus Polk M.D. - 05/18/2022 5:54 PM CDT STAFF: Cyrus Polk M.D. RESIDENT: Jenna Zaldivar M.D. PRE-OPERATIVE DIAGNOSIS Left dislocated reverse arthroplasty. POST-OPERATIVE DIAGNOSIS Left dislocated reverse arthroplasty. A hotel assistant general manager actively participated and was necessary for [...] glenosphere, placement new humeral stem and tray, [id number] Cyrus Polk M.D. CT CT Job ID: [id number] documented in this encounter Miscellaneous Notes Hospital Course - Kaushik Cadena M.D. - 05/19/2022 12:18 PM CDT Surgery Information This Encounter Past Procedures (05/19/2021 to Today) Date Procedures Providers Location 05/18/2022 ARTHROPLASTY REPLACEMENT TOTAL SHOULDER. Cyrus Polk M.D.Wasserburger, Jory N, M.D.Markos, James R, M.D. [facility] OR Angie Mosquera was taken to the [...] 09/06/2022 Appointment Radiology Alfredo Herrera O.P.A.-C. [address] [place] [phone] 09/06/2022 Office Visit Orthopedic Surgery Cyrus Polk M.D. [address] [place] [address] documented as of this encounter Procedures Procedure [...] with Differential, Blood (05/20/2022 3:43 AM CDT) [facility] Time Signature Hemoglobin 8.4 (L) 11.6 - [...] Address City/State/ZIP Code Phon e Number [facility] - [address] [place], [place] [address] [place] [address] [facility] 200 [facility] (ABNORMAL) CBC with Differential, Blood (05/19/2022 3:26 AM CDT) [facility] gist Method Time Signature Hemoglobin 7.6 [...] Address City/State/ZIP Code Phon e Number [facility] - [address] [place] [address] [place] [address] [facility] 200 [facility] (ABNORMAL) Basic Metabolic Panel (05/19/2022 3:26 [...] 05/19/2022 DTL Black/ mL/min/BSA 4:38 AM CDT [place] Comment: ----ADDITIONAL INFORMATION---- Estimated GFR calculated using [...] Address City/State/ZIP Code Phon e Number [facility] - [address] [place], [place] [address] [place] [address] [facility] [address] DX Shoulder [...] purposes. Jenna Zaldivar M.D. IMG DIAGNOSTIC IMAGING [facility] Surgical Pathology, Frozen Lab (05/18/2022 1:04 PM CDT) Component Value Ref Test Analysis Performed At [facility] Range Method Time Signature 05/20/2022 METH [...] Address City/State/ZIP Code Phon e Number [facility] - [address] [place], [place] [address] [place] [address] [facility] [address] Bacteria Cult, Aerobe / Anaerobe+Susc (05/18/2022 1:03 PM CDT) [facility] Method Time Signature Bacteria Cult, No growth 06/01/2022 DTL Aerobe/Anaerob after 14 6:02 PM CDT e+Susc days of incubation. Specimen Anatomical Collection Method Collection Time Receive d Time (Source) Location / / Volume Laterality Shoulder, Left 05/18/2022 1:03 PM 022 5:21 CDT PM CDT Comment: Specimen Source Site: Tissue #1 Narrative [facility] - 06/01/2022 6:02 PM CDT Bacterial Culture: Placed in Bactec aero bic and Bactec anaerobic bottles Cyrus Polk M.D. LAB MICROBIOLOGY - GENERAL O MARY Performing Organization Address City/[facility] Phon e Number [facility] - [address] [place], [place] [address] [address] [place] [place] [phone] [place] [address] [facility] Bacteria Cult, Aerobe / Anaerobe+Susc (05/18/2022 1:03 PM CDT) [facility] Method Time Signature Bacteria Cult, No growth 06/01/2022 DTL Aerobe/Anaerob after 14 6:02 PM CDT e+Susc days of incubation. Specimen Anatomical Collection Method Collection Time Receive d Time (Source) Location / / Volume Laterality Shoulder, Left 05/18/2022 1:03 PM 022 5:12 CDT PM CDT Comment: Specimen Source Site: Tissue #3 Narrative [facility] - 06/01/2022 6:02 PM CDT Bacterial Culture: Placed in Bactec aero bic and Bactec anaerobic bottles Cyrus Polk M.D. LAB MICROBIOLOGY - GENERAL O MARY Performing Organization Address City/State/[facility] Code Phon e Number [facility] - [address] [place], [place] [address] [place] [phone] [place] [address] [facility] Bacteria Cult, Aerobe / Anaerobe+Susc (05/18/2022 1:03 PM CDT) [facility] Method Time Signature Bacteria Cult, No growth 06/01/2022 DTL Aerobe/Anaerob after 14 6:02 PM CDT e+Susc days of incubation. Specimen Anatomical Collection Method Collection Time Receive d Time (Source) Location / / Volume Laterality Shoulder, Left 05/18/2022 1:03 PM 022 5:07 CDT PM CDT Comment: Specimen Source Site: Tissue #2 Narrative [facility] - [facility] - 06/01/2022 6:02 PM CDT Bacterial Culture: Placed in Bactec aero bic and Bactec anaerobic bottles Cyrus Polk M.D. LAB MICROBIOLOGY - GENERAL O RDERABLES Performing Organization Address City/State/ZIP Code Phon e Number [facility] - [address] [place], [place] [address] [place] [address] [facility]ly [facility] [address] documented [...] (COMPL ETED) 2048 (New Bag - Provider: Btetie Macias R.N.) 337 (New Bag - Provider: [...] 1240 (Given - Provider: Ihsan Townsend APRN, BUSINESS SYSTEMS ANALYST) 2,000 mg (rounded from 1,652.5 mg = [...] R.N.) 0848 (Given - Provider: Isaura Vu R.N.)2220 (Given - Provider: Sen Thorne., R.N., O.C.N. [...] 1240 (Given - Provider: Ihsan Townsend APRN, BUSINESS SYSTEMS ANALYST) 1,000 mg (1 g), intravenous, at 300 [...] mg of calcium, oral, Every 2 hour ND N, indigestion, Starting on Tue05/18/22 at 1608, [...] over 3 days 1 patch (TRANSDERM S X RAY TECHNOLOGIST) (CANCELED) 1118 (Medication Applied - Provider: Cristy [...] documented as of this encounter Care Teams Fisher Spear Relationship Specialty Start Date End Date Elsewhere, Pcp PCP - General Family Medicine 12/25/21 documented as of this encounter
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
--- OUTSIDE RECORDS SUMMARY | 2022-08-17 06:53 | XMS_ITS | Encounter Summary ---
:1965 Author Organization [facility] Address [address] [place] [address] Care Team Providers Name Role Phone Elsewhere, Pcp Primary Care Provider Unavailable Encounter Details Date Type Department Care Team Description 05/11/2022 Clinical Communication Department of Cyrus Polk Orthopedic Surgery in Lilian Souza [place], [place] [address] [place] [address] 200 [place] [phone] Social History Tobacco Use Types Packs/Day Years [...] you attend judaism or Patient refused 2021 sikhism services? Do [...] Appointment Radiology Alfredo Herrera O.P.A.-C. [address] [place] [phone] 09/06/2022 Office Visit Orthopedic Surgery Cyrus Polk M.D. [address] [place] [phone] documented as of this encounter Visit Diagnoses Not on filedocumented in this encounter Additional Health Concerns Assessment Noted Time PHQ-9 Depression Total Score: 16 02/11/2021 12:00 AM C DT documented as of this encounter Care Teams Barrel Handler Relationship Specialty Start Date End Date Elsewhere, Pcp PCP - General Family Medicine 12/25/21 documented as of this encounter
--- OUTSIDE RECORDS SUMMARY | 2022-08-17 06:53 | XMS_ITS | Encounter Summary ---
:1965 Author Organization [facility] Address [address] [place] [address] Care Team Providers Name Role Phone Elsewhere, Pcp Primary Care Provider Unavailable Reason for Visit Outpatient (Routine) - Closed Specialty Diagnoses / Procedures Referred By Contact Refer red To Contact Orthopedic Surgery Diagnoses Pain Shoulder Left Preoperative Exam Alfredo Herrera, [facility] OP.A.-C [address] [place] [address] Referral ID Status Reason Start Date Expiration Date Visits Requ ested Visits Authorized [id number] Closed 04/22/2022 04/22/2023 1 1 Encounter Details Date Type Department Care Team Description 05/17/2022 Office Visit Department of Cyrus Polk, Raul Shou lder Left; Orthopedic Surgery in M.D. Preoperative Exam [place], [place] [address] [facility] [address] [place] [phone] Social History Tobacco Use Types Packs/Day Years [...] you attend samaritan or Patient refused 2021 synagogue services? Do you belong to any clubs or No 05/17/2022 organizations such as samaritan groups, unions, [employer] or athletic groups, or school groups? [...] may involve the use of a medical lab technician made by a company [employer] I or one of my partners have collaborated to design, develop, or improve orthopedic implants, instruments, or products. Both the [facility] and the individual surgeons involved receive royalty payments from the use of those specific devices at other institutions, but no royalties or any other payments are paid for the use of those devices with any [facility] patient. The clinical rationale for the use of those devices as well as the availability and applicability of alternative devices was reviewed. He understands that the final decision for the use of a specific medical lab technician often is made at the time of surgery. All of his questions were answered; he understands and agrees with my approach to device selection and wants to proceed. documented in this encounter Plan of Treatment Upcoming Encounters Date Type Specialty Care Team Description 09/01/2022 Clinical Communication Admitting/Central Scheduling 09/06/2022 Appointment Radiology Alfredo Herrera O.P.A.-C. [address] [place] [address] 09/06/2022 Office Visit Orthopedic Surgery Cyrus Polk M.D. [address] [place] [address] documented as of this encounter Visit Diagnoses Diagnosis Pain Shoulder Left Preoperative Exam documented in this encounter Additional Health Concerns Assessment Noted Time PHQ-9 Depression Total Score: 16 02/11/2021 12:00 AM C DT documented as of this encounter Care Teams Health And Wellness Instructor Relationship Specialty Start Date End Date Elsewhere, Pcp PCP - General Family Medicine 12/25/21 documented as of this encounter
--- OUTSIDE RECORDS SUMMARY | 2022-08-17 06:53 | XMS_ITS | Encounter Summary ---
:1965 Author Organization [facility] Address [address] [place] [address] Care Team Providers Name Role Phone Elsewhere, Pcp Primary Care Provider Unavailable Reason for Referral Outpatient (Routine) - Closed Specialty Diagnoses / Procedures Referred By Contact Refer red To Contact Anesthesiology Diagnoses Anemia [facility] C.N.Hema, M.S.N. [address] [place] [phone] Referral ID Status Reason Start Date Expiration Date Visits Requ ested Visits Authorized [id number] Closed 04/22/2022 04/22/2023 1 1 Encounter Details Date Type Department Care Team Description 04/22/2022 Orders Only Preoperative Evaluation Shauna Rubin (Primary Dx) Center in [facility], [place], [place] M.S.N. [address] [place] [address] [place] [phone] [place], [place] [phone] Social History Tobacco Use Types Packs/Day Years [...] you attend jewish or Patient refused 2021 religion services? Do [...] 09/06/2022 Appointment Radiology Alfredo Herrera O.P.A.-C. [address] [place] [phone] 09/06/2022 Office Visit Orthopedic Surgery Cyrus Polk M.D. [address] [place] [phone] Scheduled Referrals Name Type Priority Associated Order [...] Venous) AM CDT 10:53 AM CDT Narrative [facility] - 05/03/2022 11:47 AM CDT Specimen Information: Specimen ID: [id number] Specimen Type: Blood Specimen Collection Start Date: 10:11 AM Specimen Received Date: 05/03/2022 10:53 AM Specimen ID: [id number] Specimen Type: Blood Specimen Collection Start Date: 10:11 AM Specimen Received Date: 05/03/2022 10:53 AM Specimen ID: [id number] Specimen Type: Blood Specimen Collection Start Date: 10:11 AM Specimen Received Date: 05/03/2022 10:53 AM Specimen ID: [id number] Specimen Type: Blood Specimen Collection Start Date: 10:11 AM Specimen Received Date: 05/03/2022 10:32 AM Specimen ID: [id number] Specimen Type: Blood Specimen Collection Start Date: 10:11 AM Specimen Received Date: 05/03/2022 11:44 AM Araceli Doyle APRNNBetty., M.S.N. LAB BLOOD ADD-ON Performing Organization Address City/State/ZIP Code Phon e Number [facility] - [address] [place], [place] [address] [facility] [place] [address] [facility] [address] documented in this encounter Visit Diagnoses Diagnosis Anemia - Primary Anemia documented in this encounter Additional Health Concerns Assessment Noted Time PHQ-9 Depression Total Score: 16 02/11/2021 12:00 AM C DT documented as of this encounter Care Teams Wine Pasteurizer Relationship Specialty Start Date End Date Elsewhere, Pcp PCP - General Family Medicine 12/25/21 documented as of this encounter
--- OUTSIDE RECORDS SUMMARY | 2022-08-17 06:54 | XMS_ITS | Encounter Summary ---
:1965 Author Organization [facility] Address [address] [place] [address] Care Team Providers Name Role Phone Elsewhere, Pcp Primary Care Provider Unavailable Encounter Details Date Type Department Care Team Description 03/08/2022 Documentation Department of Orthopedic Melissa Mcdonald M.D. Surgery in [place], [place] [address] [place] [phone] Social History Tobacco Use [...] you attend baptist or Patient refused 2021 jainism services? Do [...] Appointment Radiology Alfredo Herrera O.P.A.-C. [address] [place] [phone] 09/06/2022 Office Visit Orthopedic Surgery Cyrus Polk M.D. [address] [place] [address] documented as of this encounter Visit Diagnoses Not on filedocumented in this encounter Additional Health Concerns Assessment Noted Time PHQ-9 Depression Total Score: 16 02/11/2021 12:00 AM C DT documented as of this encounter Care Teams Water Main Installer Helper Relationship Specialty Start Date End Date Elsewhere, Pcp PCP - General Family Medicine 12/25/21 documented as of this encounter
--- OUTSIDE RECORDS SUMMARY | 2022-08-17 06:54 | XMS_ITS | Encounter Summary ---
:1965 Author Organization [facility] Address [address] [place] [address] Care Team Providers Name Role Phone Elsewhere, Pcp Primary Care Provider Unavailable Encounter Details Date Type Department Care Team Description 03/12/2022 Orders Only Department of Melissa Mcdonald Arthroplas ty Total Orthopedic Surgery in M.D. Should er Replacement [place], [place] Status Post Left [address] [facility] (Primary Dx) [place] [address] Social History Tobacco Use Types [...] you attend buddhism or Patient refused 2021 taoism services? Do [...] Appointment Radiology Alfredo Herrera O.PBrittonABritton-CBritton [address] [place] [address] 09/06/2022 Office Visit Orthopedic Surgery Cyrus Polk M.D. [address] [place] [address] documented as of this encounter Visit Diagnoses Diagnosis Arthroplasty Total Shoulder Replacement Status Post Left - Primary documented in this encounter Additional Health Concerns Assessment Noted Time PHQ-9 Depression Total Score: 16 02/11/2021 12:00 AM C DT documented as of this encounter Care Teams Building Insulation Installer Relationship Specialty Start Date End Date Elsewhere, Pcp PCP - General Family Medicine 12/25/21 documented as of this encounter
--- OUTSIDE RECORDS SUMMARY | 2022-08-17 06:54 | XMS_ITS | Encounter Summary ---
:1965 Author Organization [facility] Address [address] [place] [address] Care Team Providers Name Role Phone Elsewhere, Pcp Primary Care Provider Unavailable Reason for Referral Outpatient (Routine) - Closed Specialty Diagnoses / Procedures Referred By Contact Refer red To Contact Diagnoses Painful Total Joint Arthroplasty Initial (HCC) Alfredo Herrera [place] Procedures ORS US-Guided aspiration/injection O.P.A.-C. 200 [place] [address] Referral ID Status Reason Start Date Expiration Date Visits Requ ested Visits Authorized [id number] Closed 04/02/2022 04/02/2023 1 1 MRI/CAT/PET Scan (Routine) - Closed Specialty Diagnoses / Procedures Referred By Contact Refer red To Contact Radiology Diagnoses Painful Total Joint Arthroplasty Initial ([facility]) Alfredo Herrera [place] Procedures CT Shoulder Left without IV Contrast O.P.A.-C. 200 [place] [address] Referral ID Status Reason Start Date Expiration Date Visits Requ ested Visits Authorized [id number] Closed 04/02/2022 04/02/2023 1 1 Reason for Visit Outpatient (Routine) - Closed Specialty Diagnoses / Procedures Referred By Contact Refer red To Contact Orthopedic Surgery Diagnoses Arthroplasty Total Shoulder Replacement Status Post Left Alfredo Herrera [place] O.P.ABritton-C. [address] [place] [address] Referral ID Status Reason Start Date Expiration Date Visits Requ ested Visits Authorized [id number] Closed 02/25/2022 02/25/2023 1 1 Encounter Details Date Type Department Care Team Description 04/02/2022 Office Visit Department of Cyrus Polk Arthroplasty Total Shoulder Replacement Status Post Left; Orthopedic Surgery in [place] Painful Total Joint Arthroplasty Initial (HCC) [place], [place] [address] [facility] [address] [place] [phone] Social History Tobacco Use Types Packs/Day Years [...] you attend orthodox or Patient refused 2021 jainism services? Do [...] Cyrus Polk M.D. CT CT Job ID: [id number] documented in this encounter Plan of Treatment Upcoming Encounters Date Type Specialty Care Team Description 09/01/2022 Clinical Communication Admitting/Central Scheduling 09/06/2022 Appointment Radiology Alfredo Herrera O.P.A.-C. [address] [place] [phone] 09/06/2022 Office Visit Orthopedic Surgery Cyrus Polk M.D. [address] [place] [phone] documented as of this encounter Results CT [...] [facility] - [address] [place], [place] [address] [facility] [place] [address] Laboratories-[facility] [address] (ABNORMAL) CBC [...] [facility] - 200 [place], [place] [address] [facility] [place] [address] [facility] [address] [place] ARTHCS ASP/INJ MJR JT W US (04/14/2022 [...] documented as of this encounter Care Teams Fryline Attendant Relationship Specialty Start Date End Date Elsewhere, Pcp PCP - General Family Medicine 12/25/21 documented as of this encounter
--- OUTSIDE RECORDS SUMMARY | 2022-08-17 06:54 | XMS_ITS | Encounter Summary ---
:1965 Author Organization [facility] Address [address] [place] [address] Care Team Providers Name Role Phone Elsewhere, Pcp Primary Care Provider Unavailable Encounter Details Date Type Department Care Team Description 03/03/2022 Orders Only Pharmacy Prior Auth Ana Rosa Ying [phone] Social History Tobacco Use Types Packs/Day Years [...] you attend islam or Patient refused 2021 roman catholic services? [...] Appointment Radiology Alfredo Herrera O.P.A.-C. [address] [place] [address] 09/06/2022 Office Visit Orthopedic Surgery Cyrus Polk M.D. [address] [place] [address] documented as of this encounter Visit Diagnoses Not on filedocumented in this encounter Additional Health Concerns Assessment Noted Time PHQ-9 Depression Total Score: 16 02/11/2021 12:00 AM C DT documented as of this encounter Care Teams Complaint Investigator Relationship Specialty Start Date End Date Elsewhere, Pcp PCP - General Family Medicine 12/25/21 documented as of this encounter
--- OUTSIDE RECORDS SUMMARY | 2022-08-17 06:54 | XMS_ITS | Encounter Summary ---
:1965 Author Organization [facility] Address [address] [place] [address] Care Team Providers Name Role Phone Elsewhere, Pcp Primary Care Provider Unavailable Reason for Referral Outpatient (Routine) - Closed Specialty Diagnoses / Procedures Referred By Contact Refer red To Contact Orthopedic Surgery Diagnoses Pain Shoulder Left [facility] 200 [place] [address] Referral ID Status Reason Start Date Expiration Date Visits Requ ested Visits Authorized [id number] Closed 04/22/2022 04/22/2023 1 1 Reason for Visit Reason Comments pre op orders Encounter Details Date Type Department Care Team Description 04/22/2022 Clinical Communication Department of Cyrus Polk op orders Orthopedic Surgery in [place], [place] [address] [place] [address] [place] [phone] Social History Tobacco Use Types Packs/Day Years [...] you attend hindu or Patient refused 2021 nondenominational services? Do you belong to any clubs or No 05/17/2022 organizations such as hindu groups, unions, fraBringIt or athletic groups, or school groups? How [...] Appointment Radiology Alfredo Herrera O.P.A.-CBritton [address] [place] [address] 09/06/2022 Office Visit Orthopedic Surgery Cyrus Polk M.D. [address] [place] [address] Scheduled Referrals Name Type Priority Associated Order [...] 05/17/2022 DTL Black/ mL/min/BSA 12:12 PM CDT [place] Comment: ----ADDITIONAL INFORMATION---- Estimated GFR calculated using [...] Kamara LAB BLOOD ADD-ON Performing Organization Address City/[facility] Phon e Number [facility] - [address] [place] [address] [facility] [place] [address] Laboratories-[facility] 200 [facility] Type and Screen (with reflex Antibody ID) (05/17/2022 10:50 AM CDT) [facility] Method Time Signature ABORh A Neg Not [...] 05/17/2022 Venous) AM CDT 12:24 PM CDT Alferdo Kamara LAB BLOOD BANK TEST ORDERABL ES Performing Organization Address City/[facility] Phon e Number [facility] - [address] [place] [address] [facility] [address] [facility] 200 [facility] (ABNORMAL) CBC with Differential, Blood (05/17/2022 10:50 AM CDT) [email or web address] Method Time Signature Hemoglobin 9.2 (L) 11.6 [...] Phon e Number [facility] - [address] [place] [address] [facility] [place] [address] Laboratories-[address] SARS Coronavirus 2, Molecular Detection, PCR, Varies Asymptomatic (05/17/2022 10:26 AM CDT) [facility] Method Time Signature COVID-19, Swab, 05/17/2022 DTL [...] ----ADDITIONAL INFORMATION---- This RT-PCR test using the [employer] SARS-Co V-2 Assay ( [email or web address].) performed on the [employer] Two Module System has received Emergency Use Authorization (EUA) by the U.S. Food and Drug Administration, and is modified from the director strategic planning's instructions with a bridging study. Performance characteristics were verifie d by [facility] in a manner consistent with CLIA requirements. Visit the CDC website: https://www.cdc.g ov/coronavirus/ for the most recent guidelines on [facility] virus testing. Fact Sheet for Healthcare Providers: https://www.fda.gov/media/706881/downloa d Fact Sheet for Patients: https://www.fda.gov/media/925527/downloa d Specimen Anatomical Collection Method Collection Time Receive d Time (Source) Location / / Volume Laterality Varies 05/17/2022 10:26 05/17/2022 (Nasopharynx) AM CDT 10:52 AM CDT Alfredo Kamara LAB MICROBIOLOGY - GENERAL O RDERABLES Performing Organization Address City/State/[facility] Code Phon e Number [facility] - [address] [place], [place] [address] [facility] [address] Laboratories-[facility] [address] documented in this encounter Visit Diagnoses Diagnosis Pain Shoulder Left - Primary Preoperative Exam documented in this encounter Additional Health Concerns Assessment Noted Time PHQ-9 Depression Total Score: 16 02/11/2021 12:00 AM C DT documented as of this encounter Care Teams Marketing Assistant Retail Division Relationship Specialty Start Date End Date Elsewhere, Pcp PCP - General Family Medicine 12/25/21 documented as of this encounter
--- OUTSIDE RECORDS SUMMARY | 2022-08-17 06:54 | XMS_ITS | Encounter Summary ---
:1965 Author Organization [facility] Address [address] [place] [address] Care Team Providers Name Role Phone Elsewhere, Pcp Primary Care Provider Unavailable Reason for Visit Reason Comments Communication Encounter Details Date Type Department Care Team Description 03/11/2022 Clinical Communication Department of Cyrus Polk mmunication Orthopedic Surgery in [place], [place] [address] [place] [address] 200 [place] [phone] Social History Tobacco Use Types Packs/Day Years [...] you attend mu-ism or Patient refused 2021 anabaptism services? Do [...] and cannot afford any to drive to [place] and picker and sorter load and unload new sling. Telephone Encounter - Radha Suh [...] Appointment Radiology Alfredo Herrera O.P.A.-C. [address] [place] [address] 09/06/2022 Office Visit Orthopedic Surgery Cyrus Polk M.D. [address] [place] [address] documented as of this encounter Visit Diagnoses Not on filedocumented in this encounter Additional Health Concerns Assessment Noted Time PHQ-9 Depression Total Score: 16 02/11/2021 12:00 AM C DT documented as of this encounter Care Teams Flakeboard Line Tender Relationship Specialty Start Date End Date Elsewhere, Pcp PCP - General Family Medicine 12/25/21 documented as of this encounter
--- OUTSIDE RECORDS SUMMARY | 2022-08-17 06:54 | XMS_ITS | Encounter Summary ---
:1965 Author Organization [facility] Address [address] [place] [address] Care Team Providers Name Role Phone Elsewhere, Pcp Primary Care Provider Unavailable Encounter Details Date Type Department Care Team Description 03/11/2022 Documentation Department of Orthopedic Melissa Mcdonald M.D. Surgery in [place], [place] [address] [place] [phone] Social History Tobacco Use [...] you attend mu-ism or Patient refused 2021 mandaeism services? Do [...] Mr. 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 [address] [place] [phone] 09/06/2022 Office Visit Orthopedic Surgery Cyrus Polk M.D. [address] [place] [address] documented as of this encounter Visit Diagnoses Not on filedocumented in this encounter Additional Health Concerns Assessment Noted Time PHQ-9 Depression Total Score: 16 02/11/2021 12:00 AM C DT documented as of this encounter Care Teams Servicer Coin Machines Relationship Specialty Start Date End Date Elsewhere, Pcp PCP - General Family Medicine 12/25/21 documented as of this encounter
--- OUTSIDE RECORDS SUMMARY | 2022-08-17 06:54 | XMS_ITS | Encounter Summary ---
:1965 Author Organization [facility] Address [address] [place] [address] Care Team Providers Name Role Phone Elsewhere, Pcp Primary Care Provider Unavailable Encounter Details Date Type Department Care Team Description 03/05/2022 Orders Only Pharmacy Prior Auth RO Elsewhere, Pcp [phone] Social History Tobacco Use Types Packs/Day Years [...] Appointment Radiology Alfredo Herrera O.P.A.-C. [address] [place] [address] 09/06/2022 Office Visit Orthopedic Surgery Cyrus Polk M.D. [address] [place] [address] documented as of this encounter Visit Diagnoses Not on filedocumented in this encounter Additional Health Concerns Assessment Noted Time PHQ-9 Depression Total Score: 16 02/11/2021 12:00 AM C DT documented as of this encounter Care Teams Monorail Helper Relationship Specialty Start Date End Date Elsewhere, Pcp PCP - General Family Medicine 12/25/21 documented as of this encounter
--- OUTSIDE RECORDS SUMMARY | 2022-08-17 06:54 | XMS_ITS | Encounter Summary ---
:1965 Author Organization [facility] Address [address] [place] [address] Care Team Providers Name Role Phone Elsewhere, Pcp Primary Care Provider Unavailable Encounter Details Date Type Department Care Team Description 03/08/2022 Orders Only Department of Orthopedic Melissa Mcdonald M.D. Surgery in [place], [place] [address] [place] [address] Social History Tobacco Use [...] you attend lutheran or Patient refused 2021 holiness services? Do [...] Appointment Radiology Alfredo Herrera O.PBrittonAOmar [address] [place] [address] 09/06/2022 Office Visit Orthopedic Surgery Cyrus Polk M.D. [address] [place] [address] documented as of this encounter Visit Diagnoses Not on filedocumented in this encounter Additional Health Concerns Assessment Noted Time PHQ-9 Depression Total Score: 16 02/11/2021 12:00 AM C DT documented as of this encounter Care Teams Phytopathology Teacher Relationship Specialty Start Date End Date Elsewhere, Pcp PCP - General Family Medicine 12/25/21 documented as of this encounter
--- OUTSIDE RECORDS SUMMARY | 2022-08-17 06:54 | XMS_ITS | Encounter Summary ---
:1965 Author Organization [facility] Address [address] [place] [address] Care Team Providers Name Role Phone Elsewhere, Pcp Primary Care Provider Unavailable Encounter Details Date Type Department Care Team Description 03/05/2022 Clinical Communication Pharmacy Prior Auth Ben Chino RO M.D. [phone] Social History Tobacco Use Types Packs/Day Years [...] you attend voodoo or Patient refused 2021 jewish services? Do [...] Appointment Radiology Alfredo Herrera O.P.A.-C. [address] [place] [address] 09/06/2022 Office Visit Orthopedic Surgery Cyrus Polk M.D. [address] [place] [address] documented as of this encounter Visit Diagnoses Not on filedocumented in this encounter Additional Health Concerns Assessment Noted Time PHQ-9 Depression Total Score: 16 02/11/2021 12:00 AM C DT documented as of this encounter Care Teams Emt I/99 Relationship Specialty Start Date End Date Elsewhere, Pcp PCP - General Family Medicine 12/25/21 documented as of this encounter
--- OUTSIDE RECORDS SUMMARY | 2022-08-17 06:54 | XMS_ITS | Encounter Summary ---
:1965 Author Organization [facility] Address [address] [place] [address] Care Team Providers Name Role Phone Elsewhere, Pcp Primary Care Provider Unavailable Encounter Details Date Type Department Care Team Description 03/19/2022 Clinical Communication Department of Cyrus Polk Orthopedic Surgery in [place], [place] [address] [place] [address] 200 [place] [address] [phone] Social History Tobacco Use Types Packs/Day Years [...] you attend tenriism or Patient refused 2021 restoration services? Do [...] Have discussed this situation with the O.R. dock operations supervisor, the A.M. admission Vp Product, and the Outpatient Vp Product and no one can locate this remote [...] Please return a call to her at [phone] documented in this encounter Plan of Treatment Upcoming Encounters Date Type Specialty Care Team Description 09/01/2022 Clinical Communication Admitting/Central Scheduling 09/06/2022 Appointment Radiology Alfredo Herrera O.P.A.-C. [address] [place] [address] 09/06/2022 Office Visit Orthopedic Surgery Cyrus Polk M.D. [address] [place] [address] documented as of this encounter Visit Diagnoses Not on filedocumented in this encounter Additional Health Concerns Assessment Noted Time PHQ-9 Depression Total Score: 16 02/11/2021 12:00 AM C DT documented as of this encounter Care Teams Bill Cutter Relationship Specialty Start Date End Date Elsewhere, Pcp PCP - General Family Medicine 12/25/21 documented as of this encounter
--- OUTSIDE RECORDS SUMMARY | 2022-08-17 06:54 | XMS_ITS | Encounter Summary ---
:1965 Author Organization [facility] Address [address] [place] [address] Care Team Providers Name Role Phone Elsewhere, Pcp Primary Care Provider Unavailable Reason for Visit Outpatient (Routine) - Closed Specialty Diagnoses / Procedures Referred By Contact Refer red To Contact Diagnoses Painful Total Joint Arthroplasty Initial ([facility]) Alfredo Herrera [place] Procedures ORS US-Guided aspiration/injection O.P.A.-C. [address] [place] [address] [phone] Referral ID Status Reason Start Date Expiration Date Visits Requ ested Visits Authorized [id number] Closed 04/02/2022 04/02/2023 1 1 Encounter Details Date Type Department Care Team Description 04/14/2022 Procedure visit Department of Jey Monzon To beto Joint Orthopedic Surgery in [place] Arthroplasty Initial [place], [place] [address] [place] [address] ([facility]) [address] [place] [phone] Social History Tobacco Use Types Packs/Day Years [...] you attend mandaen or Patient refused 2021 alevism services? Do you belong to any clubs or No 05/17/2022 organizations such as mandaen groups, unions, fra8fit - Fitness for the rest of us or athletic groups, or school groups? How [...] was performed by Carmelo Guo M.D., M.S. ([phone]). HISTORY: The patient was recently evaluated for [...] and sterile ultrasound gel were used. Machine: [place]onybrook Purification Transducer: 6-15 MHz linear transducer. Patient position: [...] Mosquera Barriers to learning: None Preferred language: Maori Learning preferences include: Seeing and doing. Discussed: [...] QREADS: click the 'Dept Filter' button in Tap 'n Tap, then the 'Clear (ShowAll)' button, then OK. documented in this encounter Plan of Treatment Upcoming Encounters Date Type Specialty Care Team Description 09/01/2022 Clinical Communication Admitting/Central Scheduling 09/06/2022 Appointment Radiology Alfredo Herrera O.P.A.-C. [address] [place] [address] 09/06/2022 Office Visit Orthopedic Surgery Cyrus Polk M.D. [address] [place] [address] documented as of this encounter Procedures Procedure Name Priority Date/Time Associated Diagnosis Comme nts BACTERIA CULT, Routine 04/14/2022 9:35 AM Results for this AEROBE/ANAEROBE+CARRIE CDT procedur e are in C the results section. CELL COUNT AND Routine 04/14/2022 9:35 AM Results for this DIFFERENTIAL, BF CDT procedure a re in the results section. ND ARTHCS ASP/INJ Routine 04/14/2022 9:30 AM Painful Total Aliza nt Results for this MJR JT W US CDT Arthroplasty Initial procedu re are in (HCC) the results section. documented in this encounter Results Bacteria Cult, Aerobe / Anaerobe+Susc (04/14/2022 9:35 AM CDT) [facility] gist Method Time Signature Bacteria Cult, No growth 04/28/2022 DTL Aerobe/Anaerob after 14 11:02 AM CDT e+Susc days of incubation. Specimen Anatomical Collection Method Collection Time Receive d Time (Source) Location / / Volume Laterality Synovial Fluid, 04/14/2022 9:35 AM 2021 Left Shoulder CDT 10:18 AM CDT Comment: Specimen Source Site: Aspirate Narrative [facility] - 04/28/2022 11:02 AM CDT Bacterial Culture: Received Bactec aerob ic and Bactec anaerobic bottles Alfredo Kamara LAB MICROBIOLOGY - GENERAL O PATERABLES Performing Organization Address City/State/ZIP Code Phon e Number [facility] - [address] [place] [phone] [facility] [place] [address] [facility] [address] [facility] Cell Count and Differential, Body Fluid (04/14/2022 9:35 AM CDT) [facility] gist Method Time Signature Fluid Type Right [...] performance characteri stics were determined by [facility] in a manner co nsistent with CLIA [...] Phon e Number [facility] - [address] [place], [place] [address] [place] [address] [facility] [address] [place] ARTHCS ASP/INJ MJR JT W US (04/14/2022 [...] documented as of this encounter Care Teams Server Administrator Relationship Specialty Start Date End Date Elsewhere, Pcp PCP - General Family Medicine 12/25/21 documented as of this encounter
--- OUTSIDE RECORDS SUMMARY | 2022-08-17 06:54 | XMS_ITS | Encounter Summary ---
:[address] [facility] Address [address] [place] [address] Care Team Providers Name Role Phone Elsewhere, Pcp Primary Care Provider Unavailable Reason for Referral MRI/CAT/PET Scan (Routine) - Closed Specialty Diagnoses / Procedures Referred By Contact Refer red To Contact Radiology Diagnoses Painful Total Joint Arthroplasty Initial ([facility]) Alfredo Herrera [place] Procedures CT Shoulder Left without IV Contrast O.P.A.-C. [address] [place] [phone] Referral ID Status Reason Start Date Expiration Date Visits Requ ested Visits Authorized [id number] Closed 04/02/2022 04/02/2023 1 1 Reason for Visit MRI/CAT/PET Scan (Routine) - Closed Specialty Diagnoses / Procedures Referred By Contact Refer red To Contact Radiology Diagnoses Painful Total Joint Arthroplasty Initial ([facility]) Alfredo Herrera [place] Procedures CT Shoulder Left without IV Contrast O.P.A.-C. [address] [place] [phone] Referral ID Status Reason Start Date Expiration Date Visits Requ ested Visits Authorized [id number] Closed 04/02/2022 04/02/2023 1 1 Encounter Details Date Type Department Care Team Description 04/14/2022 Hospital Encounter Department of Alfredo Herrera Painful Total Joint Radiology, [place] Arthroplasty Initial Building, in [address] [place] [address] ([facility]) [facility] [phone] [facility] [phone] [place], [place] (Work) [phone] Social History Tobacco Use Types Packs/Day Years [...] THC multivit-min/iron/folic/ Take 1 tablet by 0 [id number] (HAIR, SKIN AND mouth daily. NAILS ADVANCED [...] 09/06/2022 Appointment Radiology Alfredo Herrera O.P.A.-C. [address] [place] [phone] 09/06/2022 Office Visit Orthopedic Surgery Cyrus Polk M.D. [address] [place] [phone] documented as of this encounter Procedures Procedure [...] as of this encounter Care Teams Trimming Inspector Relationship Specialty Start Date End Date Elsewhere, Pcp PCP - General Family Medicine 12/25/21 documented as of this encounter
--- OUTSIDE RECORDS SUMMARY | 2022-08-17 06:54 | XMS_ITS | Encounter Summary ---
:1965 Author Organization [facility] Address [address] [place] [address] Care Team Providers Name Role Phone Elsewhere, Pcp Primary Care Provider Unavailable Encounter Details Date Type Department Care Team Description 03/03/2022 Orders Only Pharmacy Prior Auth Yady Lebron [phone] Social History Tobacco Use Types Packs/Day Years [...] you attend tenriism or Patient refused 2021 jainism services? Do [...] Appointment Radiology Alfredo Herrera O.P.A.-C. [address] [place] [address] 09/06/2022 Office Visit Orthopedic Surgery Cyrus Polk M.D. [address] [place] [phone] documented as of this encounter Visit Diagnoses Not on filedocumented in this encounter Additional Health Concerns Assessment Noted Time PHQ-9 Depression Total Score: 16 02/11/2021 12:00 AM C DT documented as of this encounter Care Teams Extract Operator Relationship Specialty Start Date End Date Elsewhere, Pcp PCP - General Family Medicine 12/25/21 documented as of this encounter
--- OUTSIDE RECORDS SUMMARY | 2022-08-17 06:54 | XMS_ITS | Encounter Summary ---
:1965 Author Organization [facility] Address [address] [place] [address] Care Team Providers Name Role Phone Elsewhere, Pcp Primary Care Provider Unavailable Reason for Visit Reason Comments pre op orders Encounter Details Date Type Department Care Team Description 04/02/2022 Clinical Communication Department of Cyrus Polk op orders Orthopedic Surgery in Lilian Souza [place], [place] [address] [place] [address] 200 [place] [phone] [phone] Social History Tobacco Use Types Packs/Day Years [...] Herrera O.P.A.-C. [address] [place] [address] 09/06/2022 Office Visit Orthopedic Surgery Cyrus Polk M.D. [address] [place] [address] documented as of this encounter Visit Diagnoses Not on filedocumented in this encounter Additional Health Concerns Assessment Noted Time PHQ-9 Depression Total Score: 16 02/11/2021 12:00 AM C DT documented as of this encounter Care Teams Accounting Machine Servicer Relationship Specialty Start Date End Date Elsewhere, Pcp PCP - General Family Medicine 12/25/21 documented as of this encounter
--- OUTSIDE RECORDS SUMMARY | 2022-08-17 06:54 | XMS_ITS | Encounter Summary ---
:1965 Author Organization [facility] Address [address] [place] [address] Care Team Providers Name Role Phone Elsewhere, Pcp Primary Care Provider Unavailable Encounter Details Date Type Department Care Team Description 03/02/2022 Orders Only Pharmacy Prior Auth Ana Rosa Ying [phone] Social History Tobacco Use Types Packs/Day Years [...] Communication Admitting/Central Scheduling 09/06/2022 Appointment Radiology Alfredo Hererra O.P.A.-C. [address] [place] [address] 09/06/2022 Office Visit Orthopedic Surgery Cyrus Polk M.D. [address] [place] [address] documented as of this encounter Visit Diagnoses Not on filedocumented in this encounter Additional Health Concerns Assessment Noted Time PHQ-9 Depression Total Score: 16 02/11/2021 12:00 AM C DT documented as of this encounter Care Teams Photographic Engineer Relationship Specialty Start Date End Date Elsewhere, Pcp PCP - General Family Medicine 12/25/21 documented as of this encounter
--- OUTSIDE RECORDS SUMMARY | 2022-08-17 06:54 | XMS_ITS | Encounter Summary ---
:1965 Author Organization [facility] Address [address] [place] [address] Care Team Providers Name Role Phone Elsewhere, Pcp Primary Care Provider Unavailable Encounter Details Date Type Department Care Team Description 03/03/2022 Orders Only Pharmacy Prior Auth Usha Maurer [phone] Social History Tobacco Use Types Packs/Day Years [...] you attend mormon or Patient refused 2021 presybeterian services? Do [...] Appointment Radiology Alfredo Herrera O.P.A.-C. [address] [place] [address] 09/06/2022 Office Visit Orthopedic Surgery Cyrus Polk M.D. [address] [place] [address] documented as of this encounter Visit Diagnoses Not on filedocumented in this encounter Additional Health Concerns Assessment Noted Time PHQ-9 Depression Total Score: 16 02/11/2021 12:00 AM C DT documented as of this encounter Care Teams Log Chain Feeder Relationship Specialty Start Date End Date Elsewhere, Pcp PCP - General Family Medicine 12/25/21 documented as of this encounter
--- OUTSIDE RECORDS SUMMARY | 2022-08-17 06:54 | XMS_ITS | Encounter Summary ---
:1965 Author Organization [facility] Address [address] [place] [address] Care Team Providers Name Role Phone Elsewhere, Pcp Primary Care Provider Unavailable Encounter Details Date Type Department Care Team Description 04/21/2022 Clinical Communication Department of Cyrus Polk Orthopedic Surgery in [place] Souza [place], [place] [address] [place] [address] 200 [place] [phone] Social History Tobacco Use Types Packs/Day Years [...] you attend cheondoism or Patient refused 2021 yazdanism services? Do [...] something else is going on . Angie [phone] documented in this encounter Plan of Treatment Upcoming Encounters Date Type Specialty Care Team Description 09/01/2022 Clinical Communication Admitting/Central Scheduling 09/06/2022 Appointment Radiology Alfredo Herrrea O.P.A.-C. [address] [place] [address] 09/06/2022 Office Visit Orthopedic Surgery Cyrus Polk M.D. [address] [place] [address] documented as of this encounter Visit Diagnoses Not on filedocumented in this encounter Additional Health Concerns Assessment Noted Time PHQ-9 Depression Total Score: 16 02/11/2021 12:00 AM C DT documented as of this encounter Care Teams Double Back Operator Relationship Specialty Start Date End Date Elsewhere, Pcp PCP - General Family Medicine 12/25/21 documented as of this encounter
--- OUTSIDE RECORDS SUMMARY | 2022-08-17 06:54 | XMS_ITS | Encounter Summary ---
:1965 Author Organization [facility] Address [address] [place] [address] Care Team Providers Name Role Phone Elsewhere, Pcp Primary Care Provider Unavailable Encounter Details Date Type Department Care Team Description 03/16/2022 Clinical Communication Department of Cyrus Polk Orthopedic Surgery in [place] Souza [place], [place] [address] [place] [address] 200 [place] [phone] [phone] Social History Tobacco Use Types Packs/Day Years [...] you attend druze or Patient refused 2021 oriental orthodox services? [...] 03/16/2022 12:15 PM CDT Michael, patient's caser from [facility], is calling hoping to speak to someone on Dr. Polk's surgical team to ensure that the patient is receiving the correct post-op care. Patient is set up for post op appointments at the beginning of March here. However, Michael is looking to speak to someone over the phone to ensure the patient is on the right track. Please call [phone]. Thank you. documented in this encounter Plan of Treatment Upcoming Encounters Date Type Specialty Care Team Description 09/01/2022 Clinical Communication Admitting/Central Scheduling 09/06/2022 Appointment Radiology Alfredo Herrera O.P.A.-C. 200 [place] [phone] 09/06/2022 Office Visit Orthopedic Surgery Cyrus Polk M.D. [address] [place] [phone] documented as of this encounter Visit Diagnoses Not on filedocumented in this encounter Additional Health Concerns Assessment Noted Time PHQ-9 Depression Total Score: 16 02/11/2021 12:00 AM C DT documented as of this encounter Care Teams Board Certified Orthodontist Relationship Specialty Start Date End Date Elsewhere, Pcp PCP - General Family Medicine 12/25/21 documented as of this encounter
--- OUTSIDE RECORDS SUMMARY | 2022-08-17 06:54 | XMS_ITS | Encounter Summary ---
:1965 Author Organization [facility] Address [address] [place] [address] Care Team Providers Name Role Phone Elsewhere, Pcp Primary Care Provider Unavailable Reason for Referral Outpatient (Routine) - Closed Specialty Diagnoses / Procedures Referred By Contact Refer red To Contact Diagnoses Arthroplasty Total Shoulder Replacement Status Post Left Alfredo Herrera O.P.A.-C. [facility] Procedures DX Shoulder Left Ingrowth Series [address] Views [address] [place] [phone] Referral ID Status Reason Start Date Expiration Date Visits Requ ested Visits Authorized [id number] Closed 02/25/2022 02/25/2023 1 1 Reason for Visit Outpatient (Routine) - Closed Specialty Diagnoses / Procedures Referred By Contact Refer red To Contact Diagnoses Arthroplasty Total Shoulder Replacement Status Post Left Alfredo Herrera O.P.A.-C. [facility] Procedures DX Shoulder Left Ingrowth Series 5 Views [address] [place] [phone] Referral ID Status Reason Start Date Expiration Date Visits Requ ested Visits Authorized [id number] Closed 02/25/2022 02/25/2023 1 1 Encounter Details Date Type Department Care Team Description 04/02/2022 Hospital Encounter Department of Alfredo Herrera Total Radiology, Anh Gonzales Shoulder Replacement [facility], in [address] [place] [address] Status Post Left [facility] [address] [place], [place] (Work) [address] [phone] Social History Tobacco Use Types Packs/Day Years [...] you attend baptism or Patient refused 2021 nondenominational services? Do [...] THC multivit-min/iron/folic/ Take 1 tablet by 0 [id number] (HAIR, SKIN AND mouth daily. NAILS ADVANCED [...] Appointment Radiology Alfredo Herrera O.P.A.-C. [address] [place] [phone] 09/06/2022 Office Visit Orthopedic Surgery Cyrus Polk M.D. [address] [place] [address] documented as of this encounter Procedures Procedure [...] documented as of this encounter Care Teams Emt/Dispatcher Relationship Specialty Start Date End Date Elsewhere, Pcp PCP - General Family Medicine 12/25/21 documented as of this encounter
--- OUTSIDE RECORDS SUMMARY | 2022-08-17 06:54 | XMS_ITS | Encounter Summary ---
:1965 Author Organization [facility] Address [address] [place] [address] Care Team Providers Name Role Phone Elsewhere, Pcp Primary Care Provider Unavailable Encounter Details Date Type Department Care Team Description 03/08/2022 Orders Only Department of Orthopedic Melissa Mcdonald M.D. Surgery in [place], [place] [address] [place] [address] Social History Tobacco Use [...] Appointment Radiology Alfredo Herrera O.PBrittonAOmar [address] [place] [address] 09/06/2022 Office Visit Orthopedic Surgery Cyrus Polk M.D. [address] [place] [address] documented as of this encounter Visit Diagnoses Not on filedocumented in this encounter Additional Health Concerns Assessment Noted Time PHQ-9 Depression Total Score: 16 02/11/2021 12:00 AM C DT documented as of this encounter Care Teams Campus Security Officer Relationship Specialty Start Date End Date Elsewhere, Pcp PCP - General Family Medicine 12/25/21 documented as of this encounter
--- OUTSIDE RECORDS SUMMARY | 2022-08-17 06:54 | XMS_ITS | Encounter Summary ---
:1965 Author Organization [facility] Address [address] [place] [address] Care Team Providers Name Role Phone Elsewhere, Pcp Primary Care Provider Unavailable Reason for Visit Reason Comments Med Refill Encounter Details Date Type Department Care Team Description 03/02/2022 Refill Division of [facility] Vega M.D. Med Refill Internal Medicine, [place] [address] 1 [facility] [place] [address] [place] [address] [place] [address] [place] [address] Social History Tobacco Use [...] you attend jewish or Patient refused 2021 adventist services? Do [...] Appointment Radiology Alfredo Herrera O.PBrittonABritton-CBritton [address] [place] [address] 09/06/2022 Office Visit Orthopedic Surgery Cyrus Polk M.D. [address] [place] [address] documented as of this encounter Visit Diagnoses Not on filedocumented in this encounter Additional Health Concerns Assessment Noted Time PHQ-9 Depression Total Score: 16 02/11/2021 12:00 AM C DT documented as of this encounter Care Teams Casino Supervisor Relationship Specialty Start Date End Date Elsewhere, Pcp PCP - General Family Medicine 12/25/21 documented as of this encounter
--- OUTSIDE RECORDS SUMMARY | 2022-08-17 06:54 | XMS_ITS | Encounter Summary ---
:1965 Author Organization [facility] Address [address] [place] [address] Care Team Providers Name Role Phone Elsewhere, Pcp Primary Care Provider Unavailable Encounter Details Date Type Department Care Team Description 04/14/2022 Hospital Encounter Department of Alfredo Herrera Total Shoulder Replacement Status Post Left; Laboratory Medicine A, O.P.A.-C. Painful Total Joint Arthroplasty Initial (HCC) and Pathology, [address] [place] [address], in [place] [phone] [place] [phone] [place] [address] (Work) [place], [place] [phone] (Fax) [phone] Social History Tobacco Use Types Packs/Day Years [...] you attend buddhist or Patient refused 2021 oriental orthodox services? [...] THC multivit-min/iron/folic/ Take 1 tablet by 0 [id number] (HAIR, SKIN AND mouth daily. NAILS ADVANCED [...] 09/06/2022 Appointment Radiology Alfredo Herrera O.P.A.-C. 200 [place] [address] 09/06/2022 Office Visit Orthopedic Surgery Cyrus Polk M.D. 200 [place] [phone] (work) documented as of this encounter Procedures Procedure Name Priority Date/Time Associated Diagnosis Comme nts CBC WITHOUT Routine 04/14/2022 10:42 Painful Total Joint Resu lts for this DIFFERENTIAL, B AM CDT Arthroplasty Initial proc edure are in ([facility]) the results section. C-REACTIVE PROTEIN Routine 04/14/2022 10:42 Painful Total Join t Results for this (CRP), S/P AM CDT Arthroplasty Initial procedu re are in ([facility]) the results section. documented in this encounter [...] e Number [facility] - [address] [place] [address] [place] [address] [facility] 200 [facility] (ABNORMAL) CBC without Differential (04/14/2022 10:42 AM CDT) [facility] gist Method Time Signature Hemoglobin 8.6 [...] Kamara LAB BLOOD ADD-ON Performing Organization Address City/State/[facility] Code Phon e Number [facility] - [address] [place], [place] [address] [place] [address] [facility] [address] documented in this encounter Visit Diagnoses Diagnosis Arthroplasty Total Shoulder Replacement Status Post Left Painful Total Joint Arthroplasty Initial (HCC) documented in this encounter Additional Health Concerns Assessment Noted Time PHQ-9 Depression Total Score: 16 02/11/2021 12:00 AM C DT documented as of this encounter Care Teams Case Packer And Sealer Relationship Specialty Start Date End Date Elsewhere, Pcp PCP - General Family Medicine 12/25/21 documented as of this encounter
--- OUTSIDE RECORDS SUMMARY | 2022-08-17 06:54 | XMS_ITS | Encounter Summary ---
:1965 Author Organization [facility] Address [address] [place] [address] Care Team Providers Name Role Phone Elsewhere, Pcp Primary Care Provider Unavailable Reason for Visit Reason Comments Medication Question Encounter Details Date Type Department Care Team Description 03/08/2022 Clinical Communication Department of Jose Polk Orthopedic Surgery Cyrus Souza M.D. in [place], [facility] [place], [place] [address] [place] [address] [place], [place] [phone] [address] (Work) [phone] Social History Tobacco Use Types Packs/Day Years [...] you attend sabianism or Patient refused 2021 episcopal services? Do [...] 03/08/2022 11:22 AM CDT Kylie, pharmacist at [facility] in [place] calls. She is wondering if you indeed want to fill it. Please call her back at [phone] Regarding the oxycodone script sent today---patient had received 120 tablets of oxycodone on February 24 provided by another provider. documented in this encounter Plan of Treatment Upcoming Encounters Date Type Specialty Care Team Description 09/01/2022 Clinical Communication Admitting/Central Scheduling 09/06/2022 Appointment Radiology Alfredo Herrera O.P.A.-C. [address] [place] [phone] 09/06/2022 Office Visit Orthopedic Surgery Cyrus Polk M.D. [address] [place] [address] documented as of this encounter Visit Diagnoses Not on filedocumented in this encounter Additional Health Concerns Assessment Noted Time PHQ-9 Depression Total Score: 16 02/11/2021 12:00 AM C DT documented as of this encounter Care Teams Mounter Hand Relationship Specialty Start Date End Date Elsewhere, Pcp PCP - General Family Medicine 12/25/21 documented as of this encounter
--- OUTSIDE RECORDS SUMMARY | 2022-08-17 06:55 | XMS_ITS | Encounter Summary ---
:1965 Author Organization [facility] Address [address] [place] [address] Care Team Providers Name Role Phone Elsewhere, Pcp Primary Care Provider Unavailable Reason for Visit Reason Comments Medication Problem Encounter Details Date Type Department Care Team Description 03/01/2022 Clinical Communication Department of Jose Polk Orthopedic Surgery Cyrus Souza M.D. in [place], [facility] [place], [place] [address] [place] [address] [place], [place] [phone] (Work) [phone] Social History Tobacco Use Types Packs/Day Years [...] you attend episcopalian or Patient refused 2021 hindu services? Do [...] 12:04 PM CDT PIPER. Received fax from [employer] 03-03-22 indicating the doxycycline [facility] 100 mg tab is approved through 11/27/2022. Telephone Encounter - Cyrus Polk M.D. - 03/02/2022 7:45 AM CDT Please see below Thank you Telephone Encounter - Radha Suh - 03/01/2022 3:36 PM CDT Regina, pharmacist working for the insurance company calls regarding the doxycycline hyclate (DORYX) 100 mg EC tablet [[id number]] Script. This is not in their formulary. She has several questions to ask to consider approving this. Please call Regina back [phone], ext [phone] Reference # [id number] documented in this encounter Plan of Treatment Upcoming Encounters Date Type Specialty Care Team Description 09/01/2022 Clinical Communication Admitting/Central Scheduling 09/06/2022 Appointment Radiology Alfredo Herrera O.P.A.-C. [address] [place] [phone] 09/06/2022 Office Visit Orthopedic Surgery Cyrus Polk M.D. [address] [place] [phone] documented as of this encounter Visit Diagnoses Not on filedocumented in this encounter Additional Health Concerns Assessment Noted Time PHQ-9 Depression Total Score: 16 02/11/2021 12:00 AM C DT documented as of this encounter Care Teams Surgical Coder Relationship Specialty Start Date End Date Elsewhere, Pcp PCP - General Family Medicine 12/25/21 documented as of this encounter
--- OUTSIDE RECORDS SUMMARY | 2022-08-17 06:55 | XMS_ITS | Encounter Summary ---
:1965 Author Organization [facility] Address [address] [place] [address] Care Team Providers Name Role Phone Elsewhere, Pcp Primary Care Provider Unavailable Reason for Referral MRI/CAT/PET Scan (Routine) - Closed Specialty Diagnoses / Procedures Referred By Contact Refer red To Contact Radiology Diagnoses Painful Total Joint Arthroplasty Initial ([facility]) Michael Chino M.D. [facility] Procedures CT Shoulder Left without IV Contrast [address] [place] [address] Referral ID Status Reason Start Date Expiration Date Visits Requ ested Visits Authorized [id number] Closed 02/25/2022 02/25/2023 1 1 Encounter Details Date Type Department Care Team Description 02/25/2022 Orders Only Department of Michael Chino, Painful T otal Joint Orthopedic Surgery in [place].Neri Arthro plasty Initial [place], [place] ([facility]) [address] [place] [address] Social History Tobacco Use Types Packs/Day Years [...] you attend alevism or Patient refused 2021 restorationist services? Do you belong to any clubs or No 05/17/2022 organizations such as alevism groups, [employer], [employer] or athletic groups, or school groups? How [...] 09/06/2022 Appointment Radiology Alfredo Herrera O.P.A.-C. [address] [place] [phone] 09/06/2022 Office Visit Orthopedic Surgery Cyrus Polk M.D. [address] [place] [phone] documented as of this encounter Results CT [...] documented as of this encounter Care Teams Wardrobe Image Consultant Relationship Specialty Start Date End Date Elsewhere, Pcp PCP - General Family Medicine 12/25/21 documented as of this encounter
--- OUTSIDE RECORDS SUMMARY | 2022-08-17 06:55 | XMS_ITS | Encounter Summary ---
:1965 Author Organization [facility] Address [address] [place] [address] Care Team Providers Name Role Phone Elsewhere, Pcp Primary Care Provider Unavailable Encounter Details Date Type Department Care Team Description 02/26/2022 Clinical Communication [facility] Janet Sarmiento, [address] [facility].Ph.T. [place], [place] [phone] [address] (Work) [phone] Social History Tobacco Use Types Packs/Day Years [...] you attend baptist or Patient refused 2021 roman catholic services? [...] Appointment Radiology Alfredo Herrera O.P.ABritton-CBritton [address] [place] [address] 09/06/2022 Office Visit Orthopedic Surgery Cyrus Polk M.D. [address] [place] [address] documented as of this encounter Visit Diagnoses Not on filedocumented in this encounter Additional Health Concerns Assessment Noted Time PHQ-9 Depression Total Score: 16 02/11/2021 12:00 AM C DT documented as of this encounter Care Teams Supervisor Agricultural Education Relationship Specialty Start Date End Date Elsewhere, Pcp PCP - General Family Medicine 12/25/21 documented as of this encounter
--- OUTSIDE RECORDS SUMMARY | 2022-08-17 06:55 | XMS_ITS | Encounter Summary ---
:1965 Author Organization [facility] Address [address] [place] [address] Care Team Providers Name Role Phone Elsewhere, Pcp Primary Care Provider Unavailable Encounter Details Date Type Department Care Team Description 03/02/2022 Orders Only Pharmacy Prior Auth Sarmad Solano [phone] Social History Tobacco Use Types Packs/Day Years [...] you attend adventist or Patient refused 2021 rastafarian services? Do [...] Appointment Radiology Alfredo Herrera O.P.A.-C. [address] [place] [address] 09/06/2022 Office Visit Orthopedic Surgery Cyrus Polk M.D. [address] [place] [address] documented as of this encounter Visit Diagnoses Not on filedocumented in this encounter Additional Health Concerns Assessment Noted Time PHQ-9 Depression Total Score: 16 02/11/2021 12:00 AM C DT documented as of this encounter Care Teams Guest Service Representative Relationship Specialty Start Date End Date Elsewhere, Pcp PCP - General Family Medicine 12/25/21 documented as of this encounter
--- OUTSIDE RECORDS SUMMARY | 2022-08-17 06:55 | XMS_ITS | Encounter Summary ---
:[address] [facility] Address [address] [place] [address] Care Team Providers Name Role Phone Elsewhere, Pcp Primary Care Provider Unavailable Encounter Details Date Type Department Care Team Description 02/26/2022 Surgery [facility] OR Cyrus Polk, ARTHROPLASTY REPLACEMENT [address] [facility] [place] [phone] [facility] [phone] [place] [address] Social History Tobacco Use Types Packs/Day Years [...] or the highest technical, or vocational p [place] degree you have received? Sex Assigned at [...] THC multivit-min/iron/folic/ Take 1 tablet by 0 [id number] (HAIR, SKIN AND mouth daily. NAILS ADVANCED [...] - 02/27/2022 8:05 AM CDT Orthopedic Service: [facility] Hospital Admission Day: 02/26/2022 SUBJECTIVE POD1. [...] am until 6 pm, please page the [facility] pager at [phone] For urgent matters from 6 pm until 6 am, please page Ortho House at [phone] Michael Chino M.D. - 02/26/2022 3:03 PM CDT Orthopedic Service: [facility] Hospital Admission Day: 02/26/2022 SUBJECTIVE Patient [...] am until 6 pm, please page the [employer] pager at [phone] For urgent matters from 6 pm until 6 am, please page Ortho House at [phone] Clemente Buck, Pharm.D., R.Ph. - 02/26/2022 9:17 [...] Take 150 mg by mouth every morning. nhquamjkcv-rwjqhiqjlafvl-ppvq (ESGIC) 50-325-40 mg per tablet Past Week [...] 1 spray as needed. 5 mg THC multivit-min/iron/folic/jkl313 (HAIR, SKIN AND NAILS ADVANCED ORAL) 02/25/2022 [...] (HCC) ??? Nicotine Dependence Unspecified ??? Other Lead Investigator Current Drug Therapy ??? Direct Infection Of [...] assistance ADL Assistance Comments: Gets help from MEDICAL OFFICE REPRESENTATIVE for her bath/shower and for her meals IADL/Homemaking Assistance: Required assistance IADL/Homemaking Assistance Comments: Gets help for housecleaning Driving: Independent Driving Comments: takes her cane and medical alert with her. Occupational Role: On disability Occupational Role Comments: Previously worked at a [employer] Prior Mobility/Functional Transfers Level of [place]: Modified independent Previous Transfer/Mobility Assistance Comments: Patient [...] mask during therapy session: yes Outcome Measures [facility] Inpatient Short Form: -[facility] Basic Mobility (V.2) How much [...] AM-PAC Basic Mobility (V.2) Raw Score: 24 -[facility] Basic Mobility (V.2) Standardized Score: 57.68 Interpretation: Clinicians answer the -[facility] Inpatient Short Form based on [...] Prescriptions were sent and filled at the [facility] pharmacy. Catalina Mccloud R.N. - [...] status post placement antibiotic spacer. A first grade teacher was necessary for one or more [...] be placed with approximately 70% contact with lower brule bone. The more superior aspect of the [...] of antibiotic spacer, implantation of reverse arthroplasty, [id number] Cyrus Polk M.D. CT CT Job ID: [id number] documented in this encounter Plan of Treatment Upcoming Encounters Date Type Specialty Care Team Description 09/01/2022 Clinical Communication Admitting/Central Scheduling 09/06/2022 Appointment Radiology Alfredo Herrera O.P.A.-C. [address] [place] [address] 09/06/2022 Office Visit Orthopedic Surgery Cyrus Polk M.D. [address] [place] [address] documented as of this encounter Procedures Procedure [...] LAB BLOOD ADD-ON Performing Organization Address City/State/[facility] Code Phon e Number [facility] - [address] [place] [address] [address] [facility] [place] [address] Laboratories-[facility] 200 [facility] (ABNORMAL) Basic Metabolic Panel (02/26/2022 3:47 [...] 02/26/2022 DTL Black/ mL/min/BSA 6:27 PM CDT Thai Comment: ----ADDITIONAL INFORMATION---- Estimated GFR calculated using [...] City/State/ZIP Code Phon e Number [facility] - [address] [place] [address] [facility] [place] [address] Laboratories-[address] (ABNORMAL) CBC with Differential, Blood (02/26/2022 3:47 PM CDT) [facility] Method Time Signature Hemoglobin 8.8 (L) [...] City/State/ZIP Code Phon e Number [facility] - 200 [place], [place] [address] [facility] [place] [address] Laboratories-[facility] [address] DX Shoulder [...] Aerobe / Anaerobe+Susc (02/26/2022 1:00 PM CDT) [facility] Method Time Signature Bacteria Cult, No growth 03/12/2022 DTL Aerobe/Anaerob after 14 2:02 PM CDT e+Susc days of incubation. Specimen Anatomical Collection Method Collection Time Receive d Time (Source) Location / / Volume Laterality Shoulder, Left 02/26/2022 1:00 PM 022 1:41 CDT PM CDT Comment: Specimen Source Site: Tissue 1 Narrative [facility] - 03/12/2022 2:02 PM CDT Bacterial Culture: Placed in Bactec aero bic and Bactec anaerobic bottles Cyrus Polk M.D. LAB MICROBIOLOGY - GENERAL O MARY Performing Organization Address City/[facility] Code Phon e Number [facility] - [address] [facility] Bacteria Cult, Aerobe / Anaerobe+Susc (02/26/2022 1:00 PM CDT) [facility] Method Time Signature Bacteria Cult, No growth 03/12/2022 DTL Aerobe/Anaerob after 14 2:02 PM CDT e+Susc days of incubation. Specimen Anatomical Collection Method Collection Time Receive d Time (Source) Location / / Volume Laterality Shoulder, Left 02/26/2022 1:00 PM 022 1:38 CDT PM CDT Comment: Specimen Source Site: Tissue 3 Narrative [facility] - 03/12/2022 2:02 PM CDT Bacterial Culture: Placed in Bactec aero bic and Bactec anaerobic bottles Cyrus Polk M.D. LAB MICROBIOLOGY - GENERAL O MARY Performing Organization Address City/[facility]/ZIP Code Phon e Number [facility] - [address] [place], [place] [address] [facility] DTL [place], [place] [id number] [place] [address] First [facility] Bacteria Cult, Aerobe / Anaerobe+Susc (02/26/2022 1:00 PM CDT) Patholo gist Method Time Signature Bacteria Cult, No growth 03/12/2022 DTL Aerobe/Anaerob after 14 2:02 PM CDT e+Susc days of incubation. Specimen Anatomical Collection Method Collection Time Receive d Time (Source) Location / / Volume Laterality Shoulder, Left 02/26/2022 1:00 PM 022 1:36 CDT PM CDT Comment: Specimen Source Site: Tissue 2 Narrative [facility] - [facility] - 03/12/2022 2:02 PM CDT Bacterial Culture: Placed in Bactec aero bic and Bactec anaerobic bottles Cyrus Polk M.D. LAB MICROBIOLOGY - GENERAL O RDERABLES Performing Organization Address City/State/ZIP Code Phon e Number [facility] - [address] [place] [address] [place] [address] Laboratories-[facility] 200 [facility] Surgical Pathology, Frozen Lab (02/26/2022 1:00 [...] permanent sections. ??Grossed by Nan Ledezma M.S., AMELIA([facility]). Block Summary A Left shoulder 03/01/2022 METH [...] City/State/ZIP Code Phon e Number [facility] - [address] [place], [place] [address] [facility] [place] [address] Laboratories-[facility] [address] documented in [...] mg of calcium, oral, Every 2 hour [place] N, indigestion, Starting on Tue02/26/22 at 1451, [...] RBrittonN., ONC)0433 (Given - Provider: Lauren Mckeon R.N.)0778 (Given - Provider: Catalina Mccloud R.N.) 10 [...] documented as of this encounter Care Teams Change Control Manager Relationship Specialty Start Date End Date Elsewhere, Pcp PCP - General Family Medicine 12/25/21 documented as of this encounter
--- OUTSIDE RECORDS SUMMARY | 2022-08-17 06:55 | XMS_ITS | Encounter Summary ---
:1965 Author Organization [facility] Address [address] [place] [address] Care Team Providers Name Role Phone Elsewhere, Pcp Primary Care Provider Unavailable Reason for Referral Medication Prior Authorization - Denied Specialty Diagnoses / Procedures Referred By Contact Refer red To Contact Michael Chino M.D. Referral ID Status Reason Start Date Expiration Date Visits Requ ested Visits Authorized [id number] Denied 1 1 Encounter Details Date Type Department Care Team Description 02/26/2022 - Hospital Encounter [facility] Jam, Shoulder Joint Disorder Left; 02/27/2022 Hospital, Buddhist Cyrus Souza M.D. Pain Shoulder Left [facility] [address] [facility], [place], [place] Floor [address] [address] [facility] [phone] [place], [place] (Work) [phone] Social History Tobacco Use [...] you attend latter-day or Patient refused 2021 gnosticism services? Do you belong to any clubs or No 05/17/2022 organizations such as latter-day groups, [place] [employer], [facility] or athletic groups, or school groups? How [...] THC multivit-min/iron/folic/ Take 1 tablet by 0 [id number] (HAIR, SKIN AND mouth daily. NAILS ADVANCED [...] - 02/27/2022 8:05 AM CDT Orthopedic Service: [facility] Admission Day: 02/26/2022 SUBJECTIVE POD1. She [...] am until 6 pm, please page the [facility] pager at [phone] For urgent matters from 6 pm until 6 am, please page Ortho House at [phone] Michael Chino M.D. - 02/26/2022 3:03 PM [...] am until 6 pm, please page the Perfect pager at [phone] For urgent matters from 6 pm until 6 am, please page Ortho House at [phone] Clemente Buck, Pharm.D., R.Ph. - 02/26/2022 9:17 [...] Take 150 mg by mouth every morning. lixcgczdth-ikkixwlkugpri-nest (ESGIC) 50-325-40 mg per tablet Past Week [...] 1 spray as needed. 5 mg THC multivit-min/iron/folic/tyq967 (HAIR, SKIN AND NAILS ADVANCED ORAL) 02/25/2022 [...] (HCC) ??? Nicotine Dependence Unspecified ??? Other Wire Bound Box Machine Operator Current Drug Therapy ??? Direct Infection [...] Right Lives With: Alone Receives Help From: veterinary attendant, Family, Friend(s) ADL Assistance: Required assistance ADL Assistance Comments: Gets help from FABRIC CUTTER for her bath/shower and for her meals IADL/Homemaking Assistance: Required assistance IADL/Homemaking Assistance Comments: Gets help for housecleaning Driving: Independent Driving Comments: takes her cane and medical alert with her. Occupational Role: On disability Occupational Role Comments: Previously worked at a [employer] Prior Mobility/Functional Transfers Level of [place]: Modified independent Previous Transfer/Mobility Assistance Comments: Patient [...] mask during therapy session: yes Outcome Measures [facility] Inpatient Short Form: AM-[facility] Basic Mobility (V.2) How much [...] Standardized Score: 57.68 Interpretation: Clinicians answer the AM-[facility] Inpatient Short Form based on [...] Prescriptions were sent and filled at the [facility] pharmacy. Catalina Mccloud R.N. - 02/27/2022 [...] elsewhere status post placement antibiotic spacer. A assistant property manager was necessary for one or more the [...] of antibiotic spacer, implantation of reverse arthroplasty, [id number] Cyrus Polk M.D. CT CT Job ID: [id number] documented in this encounter Plan of Treatment Upcoming Encounters Date Type Specialty Care Team Description 09/01/2022 Clinical Communication Admitting/Central Scheduling 09/06/2022 Appointment Radiology Alfredo Herrera O.P.A.-C. [address] [place] [address] 09/06/2022 Office Visit Orthopedic Surgery Cyrus Polk M.D. [address] [place] [address] documented as of this encounter Procedures Procedure [...] [facility] - [address] [place], [place] [address] [facility] [place] [address] Laboratories-[facility] [address] (ABNORMAL) Basic Metabolic [...] 02/26/2022 DTL Black/ mL/min/BSA 6:27 PM CDT Monegasque Comment: ----ADDITIONAL INFORMATION---- Estimated GFR calculated using [...] [facility] - [address] [place], [place] [address] [facility] [place] [address] Laboratories-[facility] [address] (ABNORMAL) CBC with Differential, Blood (02/26/2022 3:47 PM CDT) [facility] Method Time Signature Hemoglobin 8.8 (L) [...] [facility] - [address] [place] [address] [facility] [place] [place] [address] Laboratories-[facility] 200 [facility] DX Shoulder Left 1 View (02/26/2022 [...] Aerobe / Anaerobe+Susc (02/26/2022 1:00 PM CDT) [facility] Method Time Signature Bacteria Cult, No growth 03/12/2022 DTL Aerobe/Anaerob after 14 2:02 PM CDT e+Susc days of incubation. Specimen Anatomical Collection Method Collection Time Receive d Time (Source) Location / / Volume Laterality Shoulder, Left 02/26/2022 1:00 PM 022 1:41 CDT PM CDT Comment: Specimen Source Site: Tissue 1 Narrative [facility] - 03/12/2022 2:02 PM CDT Bacterial Culture: Placed in Bactec aero bic and Bactec anaerobic bottles Cyrus Polk M.D. LAB MICROBIOLOGY - GENERAL O RDERABLES Performing Organization Address City/State/ZIP Code Phon e Number [facility] - [address] [place], [place] [address] [facility] [place] [address] Laboratories-[facility] [address] [facility] Bacteria Cult, Aerobe / Anaerobe+Susc (02/26/2022 1:00 PM CDT) [facility] Method Time Signature Bacteria Cult, No growth 03/12/2022 DTL Aerobe/Anaerob after 14 2:02 PM CDT e+Susc days of incubation. Specimen Anatomical Collection Method Collection Time Receive d Time (Source) Location / / Volume Laterality Shoulder, Left 02/26/2022 1:00 PM 022 1:38 CDT PM CDT Comment: Specimen Source Site: Tissue 3 Narrative [facility] - 03/12/2022 2:02 PM CDT Bacterial Culture: Placed in Bactec aero bic and Bactec anaerobic bottles Cyrus Polk M.D. LAB MICROBIOLOGY - GENERAL O MARY Performing Organization Address [facility] Phon e Number [facility] - 200 [place], [place] [address] [facility] [place] [place] [address] Laboratories-[address] Bacteria Cult, Aerobe / Anaerobe+Susc (02/26/2022 1:00 PM CDT) [facility] gist Method Time [facility] Bacteria Cult, No growth 03/12/2022 DT Aerobe/Anaerob after 14 2:02 PM CDT e+Susc days of incubation. Specimen Anatomical Collection Method Collection Time Receive d Time (Source) Location / / Volume Laterality Shoulder, Left 02/26/2022 1:00 PM 022 1:36 CDT PM CDT Comment: Specimen Source Site: Tissue 2 Narrative [facility] - 03/12/2022 2:02 PM CDT Bacterial Culture: Placed in Bactec aero bic and Bactec anaerobic bottles Cyrus Polk M.D. LAB MICROBIOLOGY - GENERAL O MARY Performing Organization Address [facility] Phon e Number [facility] - [id number] [place] [address] Surgical Pathology, Frozen Lab (02/26/2022 1:00 PM CDT) Component Value Ref Test Analysis [facility] 03/01/2022 METH 3:43 [...] permanent sections. ??Grossed by Nan Ledezma M.S., PA([facility]). Block Summary A Left shoulder 03/01/2022 [...] LAB SURG PATH ORDERABLES Performing Organization Address City/State/[facility] Code Phon e Number [facility] - [address] [place], [place] [address] [facility] [place] [address] [facility] [address] documented in this [...] Chari Butt) 0131 (New Bag - Provider: Densie Novak R.N., ONC) 75 mL/hr, intravenous, Continuous, [...] mg of calcium, oral, Every 2 hour [place] N, indigestion, Starting on Tue02/26/22 at 1451, [...] documented as of this encounter Care Teams [employer] Relationship Specialty Start Date End Date Elsewhere, Pcp PCP - General Family Medicine 12/25/21 documented as of this encounter
--- OUTSIDE RECORDS SUMMARY | 2022-08-17 06:55 | XMS_ITS | Encounter Summary ---
:1965 Author Organization [facility] Address [address] [place] [address] Care Team Providers Name Role Phone Elsewhere, Pcp Primary Care Provider Unavailable Encounter Details Date Type Department Care Team Description 02/26/2022 Clinical Communication [facility] Pharm[facility] Blanca Galan Eisenberg C.Ph.T. [address] [facility] [phone] [place], [place] (Work) [phone] Social History Tobacco Use [...] you attend buddhism or Patient refused 2021 roman catholic services? [...] Appointment Radiology Alfredo Herrera, OBrittonPBrittonAOmar [address] [place] [address] 09/06/2022 Office Visit Orthopedic Surgery Cyrus Polk M.D. [address] [place] [address] documented as of this encounter Visit Diagnoses Not on filedocumented in this encounter Additional Health Concerns Assessment Noted Time PHQ-9 Depression Total Score: 16 02/11/2021 12:00 AM C DT documented as of this encounter Care Teams Feeder Tender Relationship Specialty Start Date End Date Elsewhere, Pcp PCP - General Family Medicine 12/25/21 documented as of this encounter
--- OUTSIDE RECORDS SUMMARY | 2022-08-17 06:55 | XMS_ITS | Encounter Summary ---
:1965 Author Organization [facility] Address [address] [place] [address] Care Team Providers Name Role Phone Elsewhere, Pcp Primary Care Provider Unavailable Encounter Details Date Type Department Care Team Description 02/26/2022 Anesthesia Event RST SE[facility] OR Kaushik Carpenter, [address] [facility] M.[facility]., [place] [address] [address] [facility] [phone] [place] [phone] (Wo rk) Anesthesia Record Procedure Summary Procedure [...] andoff to the receiving staff during [facility] 1. Identified the patient 2. [...] you attend restorationism or Patient refused 2021 taoism services? Do [...] or the highest technical, or vocational p [facility] degree you have received? Sex Assigned at Date Recorded Female 03/01/2019 10:12 AM CDT documented as of this encounter OR Notes Anesthesia Postprocedure Evaluation - Kaushik Carpenter M.B., Ch.B. - 02/26/2022 3:19 PM CDT Patient: Angie Mosquera Procedure Summary Date: 02/26/22 Room / Location: [address] / [facility] in [place], [place] Anesthesia Start: 1212 Anesthesia Stop: 143 [...] ETT location: oral VL device: glide scope [place] scope blade size: 3 Adult tube size: [...] Pre-op diagnosis: Degenerative joint disease left. Location: [address] / [facility] in [place], [place] Providers: Cyrus Polk M.D. Pertinent components [...] with patient /legal guardian or through an freelance interpreter/translator. Risks/Benefits/Alternatives of Blood transfusion discussed with patient [...] fellow participated in the procedure, and the loss control consultant was present for the entire procedure. documented in this encounter Plan of Treatment Upcoming Encounters Date Type Specialty Care Team Description 09/01/2022 Clinical Communication Admitting/Central Scheduling 09/06/2022 Appointment Radiology Alfredo Herrera O.P.A.-C. [address] [place] [address] 09/06/2022 Office Visit Orthopedic Surgery Cyrus Polk M.D. [address] [place] [address] documented as of this encounter Procedures Procedure Name Priority Date/Time Associated Comments Diagnosis LDA ANE ENDOTRACHEAL Routine 02/26/2022 12:21 Res ults for this AIRWAY PM CDT procedure are i n the results section. MC ANE NERVE BLOCK Routine 02/26/2022 11:53 Resul ts for this WITH ULTRASOUND AM CDT procedure ar e in the results section. VT US GUIDE PLC NDL Routine 02/26/2022 11:53 Resu lts for this AM CDT procedure are i n the results section. VT INJ ANES BRACHIAL Routine 02/26/2022 11:53 Res [...] Kaushik Carpenter M.B., Ch.B. 3. Juana Silva PICKLER HELPER, SOAKING PIT OPERATOR Patient location during procedure: OR / Procedure Area PROCEDURE DETAILS: Mask difficulty assessment: easy mask Final airway type: video laryngoscope Laryngeal Manipulation: no ?? Final best view of glottic structures - Cormack/Lehane Score: grade 1 ETT location: oral VL device: glide scope [place] scope blade size: 3 Adult tube size: [...] ATTESTATION STATEMENT Kaushik Carlos, Ch.B. ANESTHESIA ORDERABLES VT INJ ANES BRACHIAL PLEX, VT US GUIDE PLC NDL, MC ANE NERVE [...] fellow participated in the procedure, and the loss control consultant was present for the entire procedure. [...] as of this encounter Care Teams Head Of Data Relationship Specialty Start Date End Date Elsewhere, Pcp PCP - General Family Medicine 12/25/21 documented as of this encounter
--- OUTSIDE RECORDS SUMMARY | 2022-08-17 06:55 | XMS_ITS | Encounter Summary ---
:1965 Author Organization [facility] Address [address] [place] [address] Care Team Providers Name Role Phone Elsewhere, [...] you attend moravian or Patient refused 2021 episcopalian services? Do [...] Appointment Radiology Alfredo Herrera O.P.A.-C. [address] [place] [address] 09/06/2022 Office Visit Orthopedic Surgery Cyrus Polk M.D. [address] [place] [address] documented as of this encounter Procedures Procedure [...] documented as of this encounter Care Teams Talent Acquisition Director Relationship Specialty Start Date End Date Elsewhere, Pcp PCP - General Family Medicine 12/25/21 documented as of this encounter
--- OUTSIDE RECORDS SUMMARY | 2022-08-17 06:55 | XMS_ITS | Encounter Summary ---
:1965 Author Organization [facility] Address [address] [place] [address] Care Team Providers Name Role Phone Elsewhere, Pcp Primary Care Provider Unavailable Encounter Details Date Type Department Care Team Description 02/26/2022 Clinical Communication RST [facility] Austyn Breaux, Pharmacy Umu Alejo [address] [facility] [place] [address] Social History Tobacco Use Types [...] Appointment Radiology Alfredo Herrera O.PBrittonAOmar [address] [place] [address] 09/06/2022 Office Visit Orthopedic Surgery Cyrus Polk M.D. [address] [place] [address] documented as of this encounter Visit Diagnoses Not on filedocumented in this encounter Additional Health Concerns Assessment Noted Time PHQ-9 Depression Total Score: 16 02/11/2021 12:00 AM C DT documented as of this encounter Care Teams Wire Transfer Clerk Relationship Specialty Start Date End Date Elsewhere, Pcp PCP - General Family Medicine 12/25/21 documented as of this encounter
--- OUTSIDE RECORDS SUMMARY | 2022-08-17 06:55 | XMS_ITS | Encounter Summary ---
:1965 Author Organization [facility] Address [address] [place] [address] Care Team Providers Name Role Phone Elsewhere, Pcp Primary Care Provider Unavailable Reason for Referral MRI/CAT/PET Scan (Routine) - Closed Specialty Diagnoses / Procedures Referred By Contact Refer red To Contact Radiology Diagnoses Painful Total Joint Arthroplasty Initial ([facility]) Michael Chino M.D. [facility] Procedures CT Shoulder Left without IV Contrast [address] [place] [phone] Referral ID Status Reason Start Date Expiration Date Visits Requ ested Visits Authorized [id number] Closed 02/25/2022 02/25/2023 1 1 Reason for Visit MRI/CAT/PET Scan (Routine) - Closed Specialty Diagnoses / Procedures Referred By Contact Refer red To Contact Radiology Diagnoses Painful Total Joint Arthroplasty Initial ([facility]) Michael Chino M.D. [facility] Procedures CT Shoulder Left without IV Contrast [address] [place] [phone] Referral ID Status Reason Start Date Expiration Date Visits Requ ested Visits Authorized [id number] Closed 02/25/2022 02/25/2023 1 1 Encounter Details Date Type Department Care Team Description 02/25/2022 Hospital Encounter Department of Michael Chino Total Joint Radiology, Severiano Celaya M.D. Arthropl [facility]) [place], [place] [address] [place] [phone] Social History Tobacco Use Types Packs/Day Years [...] you attend pentecostal or Patient refused 2021 muslim services? Do [...] THC multivit-min/iron/folic/ Take 1 tablet by 0 [id number] (HAIR, SKIN AND mouth daily. NAILS ADVANCED [...] 09/06/2022 Appointment Radiology Alfredo Herrera O.P.A.-C. [address] [place] [phone] 09/06/2022 Office Visit Orthopedic Surgery Cyrus Polk M.D. [address] [place] [address] documented as of this encounter Procedures Procedure [...] as of this encounter Care Teams Head Soft Sugar Operator Relationship Specialty Start Date End Date Elsewhere, Pcp PCP - General Family Medicine 12/25/21 documented as of this encounter
--- OUTSIDE RECORDS SUMMARY | 2022-08-17 06:55 | XMS_ITS | Encounter Summary ---
:1965 Author Organization [facility] Address [address] [place] [address] Care Team Providers Name Role Phone Elsewhere, Pcp Primary Care Provider Unavailable Reason for Referral Outpatient (Routine) - Closed Specialty Diagnoses / Procedures Referred By Contact Refer red To Contact Diagnoses Arthroplasty Total Shoulder Replacement Status Post Left Alfredo Herrera O.P.A.-C. [facility] Procedures DX Shoulder Left Ingrowth Series [address] [place] [phone] Referral ID Status Reason Start Date Expiration Date Visits Requ ested Visits Authorized [id number] Closed 02/25/2022 02/25/2023 1 1 Outpatient (Routine) - Closed Specialty Diagnoses / Procedures Referred By Contact Refer red To Contact Orthopedic Surgery Diagnoses Arthroplasty Total Shoulder Replacement Status Post Left Alfredo Herrera, [facility] Anh [address] [place] [phone] Referral ID Status Reason Start Date Expiration Date Visits Requ ested Visits Authorized [id number] Closed 02/25/2022 02/25/2023 1 1 Scheduling Instructions 6 wk f/u L TSA Reason for Visit Reason Comments Pre-visit Testing Orders Encounter Details Date Type Department Care Team Description 02/25/2022 Clinical Communication Department of Jam Pre- visit Testing Orthopedic Surgery Cyrus Souza M.D. Orders in [place], [address] [place], [place] [address] [facility] [address] [place], [place] [phone] (Work) [phone] Social History Tobacco Use Types Packs/Day Years [...] you attend pentecostal or Patient refused 2021 taoist services? Do [...] Appointment Radiology Alfredo Herrera O.P.A.-C. [address] [place] [address] 09/06/2022 Office Visit Orthopedic Surgery Cyrus Polk M.D. [address] [place] [address] Scheduled Referrals Name Type Priority Associated Diagnoses [...] documented as of this encounter Care Teams Solderer Torch Relationship Specialty Start Date End Date Elsewhere, Pcp PCP - General Family Medicine 12/25/21 documented as of this encounter
--- OUTSIDE RECORDS SUMMARY | 2022-08-17 06:55 | XMS_ITS | Encounter Summary ---
:1965 Author Organization [facility] Address [address] [place] [address] Care Team Providers Name Role Phone Elsewhere, Pcp Primary Care Provider Unavailable Encounter Details Date Type Department Care Team Description 03/02/2022 Orders Only Pharmacy Prior Auth Brooklyn Frias [phone] Social History Tobacco Use Types Packs/Day Years [...] you attend episcopal or Patient refused 2021 methodist services? Do [...] Appointment Radiology Alfredo Herrera O.P.A.-C. [address] [place] [address] 09/06/2022 Office Visit Orthopedic Surgery Cyrus Polk M.D. [address] [place] [address] documented as of this encounter Visit Diagnoses Not on filedocumented in this encounter Additional Health Concerns Assessment Noted Time PHQ-9 Depression Total Score: 16 02/11/2021 12:00 AM C DT documented as of this encounter Care Teams Paper Inserter Relationship Specialty Start Date End Date Elsewhere, Pcp PCP - General Family Medicine 12/25/21 documented as of this encounter
--- OUTSIDE RECORDS SUMMARY | 2022-08-17 06:56 | XMS_ITS | Encounter Summary ---
:1965 Author Organization [facility] Address [address] [place] [address] Care Team Providers Name Role Phone Elsewhere, Pcp Primary Care Provider Unavailable Reason for Visit Reason Comments Labs Only Encounter Details Date Type Department Care Team Description 02/05/2022 Documentation Section of Infectious Amna Kaur , Labs Only Diseases in [facility] 200 [facility] 200 [place] [address] [phone] Social History Tobacco Use Types Packs/Day Years [...] you attend orthodox or Patient refused 2021 orthodoxy services? Do [...] PM CST Labs entered at this time. L PELLER documented in this encounter Plan of Treatment Upcoming Encounters Date Type Specialty Care Team Description 09/01/2022 Clinical Communication Admitting/Central Scheduling 09/06/2022 Appointment Radiology Alfredo Herrera O.P.A.-C. [address] [place] [phone] 09/06/2022 Office Visit Orthopedic Surgery Cyrus Polk M.D. [address] [place] [phone] documented as of this encounter Procedures Procedure Name Priority Date/Time Associated Comments Diagnosis CBC WITH DIFFERENTIAL, B Routine 02/04/2022 3:06 Results for this PM PEARL PELLER procedure are i n the results section. ALANINE AMINOTRANSFERASE Routine 02/04/2022 3:06 Results for this (ALT), S/P PM PEARL PELLER procedure are i n the results section. ALKALINE PHOSPHATASE, Routine 02/04/2022 3:06 Res ults for this S/P PM PEARL PELLER procedure are i n the results section. CREATININE WITH EGFR, Routine 02/04/2022 3:06 Res ults for this S/P PM PEARL PELLER procedure are i n the results section. documented in this encounter Results ALT (Alanine Aminotransferase) (02/04/2022 3:06 PM PEARL PELLER) P athologist Signature EXT ALT 20 4 - 35 OTHER (SPECIFY IN INDUSTRIAL PSYCHOLOGY TEACHER) Specimen (Source) Anatomical Location Collection Method / Collectio n Time Received Time / Laterality Volume Blood (Blood, Venous) Resulting Agency Comment [facility] Gucci Salvador M.D. LAB BLOOD ADD-ON Performing Organization Address City/State/ZIP Code Phon e Number OTHER (SPECIFY IN INDUSTRIAL PSYCHOLOGY TEACHER) OTHER (SPECIFY IN INDUSTRIAL PSYCHOLOGY TEACHER) N/A Alkaline Phosphatase (02/04/2022 3:06 PM PEARL PELLER) P athologist Signature EXT Alkaline 102 40 - 150 OTHER (SPECIFY Phosphatase IN INDUSTRIAL PSYCHOLOGY TEACHER) Specimen (Source) Anatomical Location Collection Method / Collectio n Time Received Time / Laterality Volume Blood (Blood, Venous) Resulting Agency Comment [facility] Gucci Salvador M.D. LAB BLOOD ADD-ON Performing Organization Address City/State/ZIP Code Phon e Number OTHER (SPECIFY IN INDUSTRIAL PSYCHOLOGY TEACHER) OTHER (SPECIFY IN INDUSTRIAL PSYCHOLOGY TEACHER) N/A Creatinine with Estimated GFR (02/04/2022 3:06 PM PEARL PELLER) P athologist Signature EXT Creatinine 0.7 0.5 - 1.5 OTHER (SPECIFY mg/dL IN INDUSTRIAL PSYCHOLOGY TEACHER) Specimen (Source) Anatomical Location Collection Method / Collectio n Time Received Time / Laterality Volume Blood (Blood, Venous) Resulting Agency Comment [facility] Gucci Salvador M.D. LAB BLOOD ADD-ON Performing Organization Address City/State/ZIP Code Phon e Number OTHER (SPECIFY IN INDUSTRIAL PSYCHOLOGY TEACHER) OTHER (SPECIFY IN INDUSTRIAL PSYCHOLOGY TEACHER) N/A (ABNORMAL) CBC with Differential, Blood (02/04/2022 3:06 PM PEARL PELLER) P athologist Signature EXT Platelet 253 150 - 450 OTHER Count (SPECIFY IN INDUSTRIAL PSYCHOLOGY TEACHER) EXT Hemoglobin 9.1 (A) 12 - 15.5 OTHER (SPECIFY IN INDUSTRIAL PSYCHOLOGY TEACHER) EXT White Blood 4.0 (A) 5.0 - 10.0 OTHER Cell (WBC) (SPECIFY IN Count INDUSTRIAL PSYCHOLOGY TEACHER) Specimen (Source) Anatomical Location Collection Method / Collectio n Time Received Time / Laterality Volume Blood (Blood, Venous) Narrative This result has an attachment that is no t available. Resulting Agency Comment [facility] Gucci Salvador M.D. LAB BLOOD ADD-ON Performing Organization Address City/State/ZIP Code Phon e Number OTHER (SPECIFY IN INDUSTRIAL PSYCHOLOGY TEACHER) OTHER (SPECIFY IN INDUSTRIAL PSYCHOLOGY TEACHER) N/A documented in this encounter Visit Diagnoses Not on filedocumented in this encounter Additional Health Concerns Assessment Noted Time PHQ-9 Depression Total Score: 16 02/11/2021 12:00 AM C DT documented as of this encounter Care Teams Ophthalmic Technologist Relationship Specialty Start Date End Date Elsewhere, Pcp PCP - General Family Medicine 12/25/21 documented as of this encounter
--- OUTSIDE RECORDS SUMMARY | 2022-08-17 06:56 | XMS_ITS | Encounter Summary ---
:1965 Author Organization [facility] Address [address] [place] [address] Care Team Providers Name Role Phone Elsewhere, Pcp Primary Care Provider Unavailable Encounter Details Date Type Department Care Team Description 01/08/2022 Clinical Communication Pharmacy Prior Auth ОЛЬГА Carrera M.D. [phone] Social History Tobacco Use Types Packs/Day Years [...] Camelia CINTRON. Thank you, The OPPA Team ARCHITECT documented in this encounter Plan of Treatment Upcoming Encounters Date Type Specialty Care Team Description 09/01/2022 Clinical Communication Admitting/Central Scheduling 09/06/2022 Appointment Radiology Herrera, Anh Britton [address] [place] [address] 09/06/2022 Office Visit Orthopedic Surgery Cyrus Polk M.D. [address] [place] [address] documented as of this encounter Visit Diagnoses Not on filedocumented in this encounter Additional Health Concerns Assessment Noted Time PHQ-9 Depression Total Score: 16 02/11/2021 12:00 AM C DT documented as of this encounter Care Teams Assistant Professor Of Business Relationship Specialty Start Date End Date Elsewhere, Pcp PCP - General Family Medicine 12/25/21 documented as of this encounter
--- OUTSIDE RECORDS SUMMARY | 2022-08-17 06:56 | XMS_ITS | Encounter Summary ---
:1965 Author Organization [facility] Address [address] [place] [address] Care Team Providers Name Role Phone Elsewhere, Pcp Primary Care Provider Unavailable Reason for Referral Outpatient (Routine) - Authorized Specialty Diagnoses / Procedures Referred By Contact Refer red To Contact Diagnoses Software Recruiter Antibiotic Treatment Tejal Medley MPAS, P.A.-C., M.S. [address] [place] [phone] Referral ID Status Reason Start Expiration Visits Visits Date Date Requested Authorized [id number] Authorized Patient 02/08/2022 02/08/2023 1 1 Preference Reason for Visit Reason Comments OPAT Care Coordination Encounter Details Date Type Department Care Team Description 02/08/2022 Clinical Communication Section of Desirae Domingo (Care Infectious Diseases M, R.N. Coordination) in [place], [address] [place] [address] [place] [phone] [place], [place] [phone] (Work) [phone] Social History Tobacco Use Types Packs/Day Years [...] you attend mandaeism or Patient refused 2021 rastafarian services? Do you belong to any clubs or No 05/17/2022 organizations such as mandaeism groups, unions, fraUPlanMe or athletic groups, or school groups? How [...] 02/08/2022 12:06 PM CDT Maritza calls from [employer]. Its Time Compliance stop date of 02/11 for IV antibiotics. Maritza requests order be faxed to [facility] where patient has labs and PICC site care done. I called the [facility], .Pull PIC order can be faxed to [phone]. documented in this encounter Plan of Treatment Upcoming Encounters Date Type Specialty Care Team Description 09/01/2022 Clinical Communication Admitting/Central Scheduling 09/06/2022 Appointment Radiology Alfredo Herrera O.P.A.-C. [address] [place] [address] 09/06/2022 Office Visit Orthopedic Surgery Cyrus Polk M.D. [address] [place] [address] documented as of this encounter Visit Diagnoses Diagnosis Software Recruiter Antibiotic Treatment - Primary documented in this encounter Additional Health Concerns Assessment Noted Time PHQ-9 Depression Total Score: 16 02/11/2021 12:00 AM C DT documented as of this encounter Care Teams Radial Saw Operator Relationship Specialty Start Date End Date Elsewhere, Pcp PCP - General Family Medicine 12/25/21 documented as of this encounter
--- OUTSIDE RECORDS SUMMARY | 2022-08-17 06:56 | XMS_ITS | Encounter Summary ---
:1965 Author Organization [facility] Address [address] [place] [address] Care Team Providers Name Role Phone Elsewhere, Pcp Primary Care Provider Unavailable Encounter Details Date Type Department Care Team Description 01/01/2022 Episode Changes Section of Infectious [facility] [place] [facility] in [place], (Work ) [place] [address] [place] [phone] Social History Tobacco Use Types Packs/Day [...] you attend jainism or Patient refused 2021 tenriism services? Do [...] Appointment Radiology Alfredo Herrera, OBrittonPBrittonAOmar [address] [place] [address] 09/06/2022 Office Visit Orthopedic Surgery Cyrus Polk M.D. [address] [place] [address] documented as of this encounter Visit Diagnoses Not on filedocumented in this encounter Additional Health Concerns Assessment Noted Time PHQ-9 Depression Total Score: 16 02/11/2021 12:00 AM C DT documented as of this encounter Care Teams Epic Ambulatory Analysts Relationship Specialty Start Date End Date Elsewhere, Pcp PCP - General Family Medicine 12/25/21 documented as of this encounter
--- OUTSIDE RECORDS SUMMARY | 2022-08-17 06:56 | XMS_ITS | Encounter Summary ---
:1965 Author Organization [facility] Address [address] [place] [id number] Care Team Providers Name Role Phone Elsewhere, Pcp Primary Care Provider Unavailable Reason for Referral Outpatient (Routine) - Closed Specialty Diagnoses / Procedures Referred By Contact Refer red To Contact Infectious Diseases Diagnoses Aftercare Total Shoulder Arthroplasty Jose Guadalupe Nixon [place] M.D. [address] [place] [address] Referral ID Status Reason Start Date Expiration Date Visits Requ ested Visits Authorized [id number] Closed 01/01/2022 01/01/2023 1 1 SUPPORT ANALYST Reason for Visit Reason Comments OPAT Post Hospital Follow-up Encounter Details Date Type Department Care Team Description 01/01/2022 Clinical Communication RST HIM MATTHEW Nixon; Post [facility] [address] [place] [address] Jose Guadalupe Garcia M.D. Follow-up [place], [place] [address] [place] [phone] [place] [address] Social History Tobacco Use Types Packs/Day Years [...] you attend hoahaoism or Patient refused 2021 uatsdin services? Do you belong to any clubs or No 05/17/2022 organizations such as hoahaoism groups, unions, [employer] or athletic groups, or school groups? [...] 09/06/2022 Appointment Radiology Alfredo Herrera O.P.A.-C. 200 [place] [phone] 09/06/2022 Office Visit Orthopedic Surgery Cyrus Polk M.D. [address] [place] [phone] Scheduled Referrals Name Type Priority Associated Diagnoses [...] M.D. LAB BLOOD ADD-ON Performing Organization Address City/State/[facility] Code Phon e Number [facility] - 200 [place], [place] [address] [place] [address] [place] [address] Laboratories[address] CRP (C-Reactive Protein) (02/25/2022 10:09 AM CDT) P athologist Signature C-Reactive <3.0 <=8.0 mg/L 02/25/2022 DTL Protein (CRP), 11:34 AM CDT S Specimen Anatomical Collection Method Collection Time Receive d Time (Source) Location / / Volume Laterality Blood (Blood, 02/25/2022 10:09 02/25/2022 Venous) AM CDT 11:00 AM CDT Jose Guadalupe Nixon M.D. LAB BLOOD ADD-ON Performing Organization Address City/State/[facility] Code Phon e Number [facility] - 200 [place], [place] [address] [facility] [place] [id number] Laboratories-[address] (ABNORMAL) CBC with Differential, Blood (02/25/2022 [...] [facility] [address] [place], [place] [address] [facility] [place] [place] [address] Laboratories-[facility] [address] documented in this encounter Visit Diagnoses Diagnosis Aftercare Total Shoulder Arthroplasty - Primary documented in this encounter Additional Health Concerns Assessment Noted Time PHQ-9 Depression Total Score: 16 02/11/2021 12:00 AM C DT documented as of this encounter Care Teams Sporting Goods Sales Manager Relationship Specialty Start Date End Date Elsewhere, Pcp PCP - General Family Medicine 12/25/21 documented as of this encounter
--- OUTSIDE RECORDS SUMMARY | 2022-08-17 06:56 | XMS_ITS | Encounter Summary ---
:1965 Author Organization [facility] Address [address] [place] [address] Care Team Providers Name Role Phone Elsewhere, Pcp Primary Care Provider Unavailable Encounter Details Date Type Department Care Team Description 01/05/2022 Clinical Communication Section of Infectious Ed [facility] [place], , MD UROLOGIST, R.N. [place] 200 [facility] 200 [place] [phone] Social History Tobacco Use Types Packs/Day Years [...] you attend hindu or Patient refused 2021 mosque services? Do [...] Ward APRN, C.N.P. - 01/05/2022 2:17 PM CHILDHOOD DEVELOPMENT TEACHER Left shoulder synovial fluid culture from 12/30 has been reported for growth of oxacillin sensitive Staphylococcus epidermidis. No change recommended to the patient's current regimen of ceftriaxone. DHOOD DEVELOPMENT TEACHER Telephone Encounter - Laly Ward APRN, C.N.P. - 01/05/2022 2:17 PM CHILDHOOD DEVELOPMENT TEACHER ----- Message from Su Greene, Pharm.D., R.Ph. sent at 01/05/2022 9:51 AM CHILDHOOD DEVELOPMENT TEACHER ----- Patient with shoulder infection (with previous [...] changes please message RST IFD NORA CASTRO [facility] PHARMACIST pool. If urgent, page [phone] M-F 9am-5 pm DHOOD DEVELOPMENT TEACHER documented in this encounter Plan of Treatment Upcoming Encounters Date Type Specialty Care Team Description 09/01/2022 Clinical Communication Admitting/Central Scheduling 09/06/2022 Appointment Radiology Alfredo Herrera O.P.A.-C. [address] [place] [phone] 09/06/2022 Office Visit Orthopedic Surgery Cyrus Polk M.D. [address] [place] [phone] documented as of this encounter Visit Diagnoses Not on filedocumented in this encounter Additional Health Concerns Assessment Noted Time PHQ-9 Depression Total Score: 16 02/11/2021 12:00 AM C DT documented as of this encounter Care Teams Automatic Spreader Operator Relationship Specialty Start Date End Date Elsewhere, Pcp PCP - General Family Medicine 12/25/21 documented as of this encounter
--- OUTSIDE RECORDS SUMMARY | 2022-08-17 06:56 | XMS_ITS | Encounter Summary ---
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 [address] [place] [phone] Referral ID Status Reason Start Date Expiration Date Visits V isits Requested Authorized [id number] Authorized 01/01/2022 01/01/2023 1 1 [employer] Encounter Details Date Type Department Care Team Description 12/30/2021 - Hospital Encounter [facility] Kulwant Polk M.D. [address] [place] [phone] Pain Shoulder Left (Primary Dx); 01/01/2022 Hospital, [facility] Kennedi Vera MPAS, P.A.-C. [address] [place] [phone] Shoulder Joint Disorder Left; Afshin Blasenberg Direct Inf ection Of Left Shoulder In Infectious And Parasitic Diseases Classified Elsewhere (HCC) Building, Eighth Floor [address] [place] [phone] Social History Tobacco Use Types Packs/Day Years [...] you attend islam or Patient refused 2021 episcopal services? Do [...] Comments Blood Pressure 141/91 01/01/2022 4:26 PM [employer] Pulse 95 01/01/2022 4:26 PM [employer] Temperature 36.8 ??C (98.2 ??F) 01/01/2022 4:26 PM [employer] Respiratory Rate 18 01/01/2022 4:26 PM [employer] Oxygen Saturation 93% 01/01/2022 4:26 PM [employer] Inhaled Oxygen Concentration - - Weight 69.9 kg (154 lb 1.6 12/30/2021 11:22 AM oz) [employer] Height 150.5 cm (4' 11.25) 12/30/2021 11:22 AM no shoe s/boots [employer] Body Mass Index 30.86 12/30/2021 11:22 AM [employer] documented in this encounter Discharge Summaries Dario Carrera M.D. - 01/01/2022 8:50 AM CST DISCHARGE SUMMARY BRIEF OVERVIEW Hospital: [facility] Discharge Provider: Cyrus Polk M.D. [...] RST [facility] OR DISCHARGE DISPOSITION [place] [facility] [place]6] ACTIVE ISSUES REQUIRING FOLLOW UP Active [...] were provided to the patient and caregiver(s). [employer] documented in this encounter Discharge Instructions AttachmentsThe following attachments cannot be sent through Care Everywhere. Continuous Nerve-Block Infusion System: Often called a ???pain pump?? (Scottish) documented in this encounter Medications at Time [...] needed. multivit-min/iron/folic/ Take 1 tablet by 0 [id number] (HAIR, SKIN AND mouth daily. NAILS ADVANCED [...] when she got up for the day. [employer] Ruth Gonzalez P.T., D.P.T. - 01/01/2022 4:29 [...] mask during therapy session: no Outcome Measures -[facility] Inpatient Short Form: -[facility] Basic Mobility (V.2) How much help [...] 3-5 steps with a railing?: A Little AM-FORMER[facility] Basic Mobility (V.2) Raw Score: 23 AM-PAC Basic Mobility (V.2) Standardized Score: 50.88 Interpretation: Clinicians answer the AM-[facility] Inpatient Short Form based on [...] quad cane since it is not available [facility] by prescription. Barriers to Discharge Home: [...] (min): 23 min Ruth Gonzalez P.T., Juice.P.TBritton [employer] Elvira Duncan R.N. - 01/01/2022 3:21 PM [...] educational pamphlet Continuous Nerve-Block Infusion System ( [id number]).?? Discussed at home removal of nervecatheter, signs [...] our ownership and financial relationship of the [facility]/home health & hospice agencies. Reviewed insurance coverage, [...] Services Address Phone Fax Patient Preferred [facility]fusion [facility] IV Therapy [phone], [place] [phone] -- Contact: Intake NURSING: - Adjust the [...] draws will be managed by Outpatient Facility: [facility] Address: [address] , [place], [place] Contact: Princess They will provide IV [...] continue to follow. Joe Ervin, M.S.W. 01/01/2022 [employer] Gucci Salvador M.D. - 01/01/2022 10:45 AM [...] questions answered to patient's satisfaction. Please page [phone] for questions. 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 [id number] [employer] Pamela Crawford Pharm.D., R.Ph. - 01/01/2022 10:14 [...] on post-operative opioids Pamela Crawford Pharm.D., R.Ph. [phone] [employer] Jose Guadalupe Nixon M.D. - 01/01/2022 8:31 [...] Date/Time Bacteria / Mandi Culture, Blood #2 [[id number]] Collected: 12/31/21 1604 Lab Status: In process Specimen: Blood, Peripheral Draw Updated: 12/31/21 1651 Narrative: Received Bactec aerobic and Bactec anaerobic bottles Specimen Information: Specimen ID: [id number] Specimen Source: Blood, Peripheral Draw Specimen Comment: Specimen Source Site: Blood Specimen Collection Start Date: 12/31/2021 4:05 PM Specimen Received Date: 12/31/2021 4:51 PM Specimen ID: [id number] Specimen Source: Blood, Peripheral Draw Specimen Comment: Specimen Source Site: Blood Specimen Collection Start Date: 12/31/2021 4:05 PM Specimen Received Date: 12/31/2021 4:51 PM Specimen ID: [id number] Specimen Source: Blood, Peripheral Draw Specimen Comment: Specimen Source Site: Blood Specimen Collection Start Date: 12/31/2021 4:04 PM Specimen Received Date: 12/31/2021 4:51 PM Bacteria / Mandi Culture, Blood #1 [[id number]] Collected: 12/31/21 1552 Lab Status: In process Specimen: Blood, Peripheral Draw Updated: 12/31/21 165 Narrative: Received Bactec aerobic and Bactec anaerobic bottles Specimen Information: Specimen ID: [id number] Specimen Source: Blood, Peripheral Draw Specimen Comment: Specimen Source Site: Blood Specimen Collection Start Date: 12/31/2021 3:52 PM Specimen Received Date: 12/31/2021 4:50 PM Specimen ID: [id number] Specimen Source: Blood, Peripheral Draw Specimen Comment: Specimen Source Site: Blood Specimen Collection Start Date: 12/31/2021 3:53 PM Specimen Received Date: 12/31/2021 4:50 PM Specimen ID: [id number] Specimen Source: Blood, Peripheral Draw Specimen Comment: Specimen Source Site: Blood Specimen Collection Start Date: 12/31/2021 3:53 PM Specimen Received Date: 12/31/2021 4:50 PM Bacteria Cult, Aerobe / Anaerobe+Susc [[id number]] Collected: 12/30/21 1411 Lab Status: Preliminary result Specimen: Shoulder, Left Updated: 12/31/21 1601 Bacteria Cult, Aerobe/Anaerobe+Susc No growth to date. Narrative: Bacterial Culture: Placed in Bactec aerobic and Bactec anaerobic bottles Bacteria Cult, Aerobe / Anaerobe+Susc [[id number]] Collected: 12/30/21 1405 Lab Status: Preliminary result Specimen: Synovial Fluid, Left Shoulder Updated: 12/31/21 1601 Bacteria Cult, Aerobe/Anaerobe+Susc No growth to date. Narrative: Bacterial Culture: Placed in Bactec aerobic and Bactec anaerobic bottles Bacteria Cult, Aerobe / Anaerobe+Susc [[id number]] Collected: 12/30/21 1404 Lab Status: Preliminary result Specimen: Shoulder, Left Updated: 12/31/21 1601 Bacteria Cult, Aerobe/Anaerobe+Susc No growth to date. Narrative: Bacterial Culture: Placed in Bactec aerobic and Bactec anaerobic bottles Bacteria Cult, Aerobe / Anaerobe+Susc [[id number]] Collected: 12/30/21 1403 Lab Status: Preliminary result Specimen: Shoulder, Left Updated: 12/31/21 1601 Bacteria Cult, Aerobe/Anaerobe+Susc No growth to date. Narrative: Bacterial Culture: Placed in Bactec aerobic and Bactec anaerobic bottles Bacteria Cult, Aerobe / Anaerobe+Susc [[id number]] Collected: 12/30/21 1403 Lab Status: Preliminary result Specimen: Shoulder, Left Updated: 12/31/21 1601 Bacteria Cult, Aerobe/Anaerobe+Susc No growth to date. Narrative: Bacterial Culture: Placed in Bactec aerobic and Bactec anaerobic bottles SARS Coronavirus 2, Molecular Detection, PCR, Varies Asymptomatic [[id number]] Collected: 12/29/21 1111 Lab Status: Final result [...] ----ADDITIONAL INFORMATION---- This RT-PCR test using the Cardoz SARS-CoV-2 Assay ( Digital Solid State Propulsion.) performed on the Cardoz Two Module System has received Emergency Use Authorization (EUA) by the U.S. Food and Drug Administration, and is modified from the superintendent operating's instructions with a bridging study. Performance characteristics were verified by [facility] in a manner consistent with CLIA requirements. Visit the CDC website: https://www.cdc.gov/coronavirus/ for the most recent guidelines on Coronavirus testing. Fact Sheet for Healthcare Providers: https://www.fda.gov/media/628181/download Fact Sheet for Patients: https://www.fda.gov/media/929854/download ASSESSMENT / PLAN 56-year-old female with a [...] is consistent with aspiration results from original [facility] evaluation which is likely computer help desk representative of the culprit organism causing her [...] of Infectious Diseases OPAT monitoring program at [phone] after dismissal. Primary service to follow labs while patient is hospitalized. [place] pharmacist to adjust dosing after dismissal 4. [...] off at this time. Please page Orth[facility] service pager at [phone] with any questions. ?? Jose Guadalupe Nixon [...] - Date/Time Bacteria Cult, Aerobe / Anaerobe+Susc [[id number]] Collected: 12/30/21 1411 Lab Status: In process Specimen: Shoulder, Left Updated: 12/30/21 1540 Narrative: Bacterial Culture: Placed in Bactec aerobic and Bactec anaerobic bottles Bacteria Cult, Aerobe / Anaerobe+Susc [[id number]] Collected: 12/30/21 1405 Lab Status: In process Specimen: Synovial Fluid, Left Shoulder Updated: 12/30/21 1519 Narrative: Bacterial Culture: Placed in Bactec aerobic and Bactec anaerobic bottles Bacteria Cult, Aerobe / Anaerobe+Susc [[id number]] Collected: 12/30/21 1404 Lab Status: In process Specimen: Shoulder, Left Updated: 12/30/21 1536 Narrative: Bacterial Culture: Placed in Bactec aerobic and Bactec anaerobic bottles Bacteria Cult, Aerobe / Anaerobe+Susc [[id number]] Collected: 12/30/21 1403 Lab Status: In process Specimen: Shoulder, Left Updated: 12/30/21 1533 Narrative: Bacterial Culture: Placed in Bactec aerobic and Bactec anaerobic bottles Bacteria Cult, Aerobe / Anaerobe+Susc [[id number]] Collected: 12/30/21 1403 Lab Status: In process Specimen: Shoulder, Left Updated: 12/30/21 1538 Narrative: Bacterial Culture: Placed in Bactec aerobic and Bactec anaerobic bottles SARS Coronavirus 2, Molecular Detection, PCR, Varies Asymptomatic [[id number]] Collected: 12/29/21 1111 Lab Status: Final result [...] ----ADDITIONAL INFORMATION---- This RT-PCR test using the Cardoz SARS-CoV-2 Assay ( Digital Solid State Propulsion.) performed on the Cardoz Two Module System has received Emergency Use Authorization (EUA) by the U.S. Food and Drug Administration, and is modified from the superintendent operating's instructions with a bridging study. Performance characteristics were verified by [facility] in a manner consistent with CLIA requirements. Visit the CDC website: https://www.cdc.gov/coronavirus/ for the most recent guidelines on Coronavirus testing. Fact Sheet for Healthcare Providers: https://www.fda.gov/media/509401/download Fact Sheet for Patients: https://www.fda.gov/media/598718/download ASSESSMENT / PLAN IMPRESSION/REPORT/PLAN #1 Status post [...] at [facility] [phone] Trey Phan R.N. - 12/31/2021 7:34 AM [...] - Date/Time Bacteria Cult, Aerobe / Anaerobe+Susc [[id number]] Collected: 12/30/21 1411 Lab Status: In process Specimen: Shoulder, Left Updated: 12/30/21 1540 Narrative: Bacterial Culture: Placed in Bactec aerobic and Bactec anaerobic bottles Bacteria Cult, Aerobe / Anaerobe+Susc [[id number]] Collected: 12/30/21 1405 Lab Status: In process Specimen: Synovial Fluid, Left Shoulder Updated: 12/30/21 1519 Narrative: Bacterial Culture: Placed in Bactec aerobic and Bactec anaerobic bottles Bacteria Cult, Aerobe / Anaerobe+Susc [[id number]] Collected: 12/30/21 1404 Lab Status: In process Specimen: Shoulder, Left Updated: 12/30/21 1536 Narrative: Bacterial Culture: Placed in Bactec aerobic and Bactec anaerobic bottles Bacteria Cult, Aerobe / Anaerobe+Susc [[id number]] Collected: 12/30/21 1403 Lab Status: In process Specimen: Shoulder, Left Updated: 12/30/21 1533 Narrative: Bacterial Culture: Placed in Bactec aerobic and Bactec anaerobic bottles Bacteria Cult, Aerobe / Anaerobe+Susc [[id number]] Collected: 12/30/21 1403 Lab Status: In process Specimen: Shoulder, Left Updated: 12/30/21 1538 Narrative: Bacterial Culture: Placed in Bactec aerobic and Bactec anaerobic bottles SARS Coronavirus 2, Molecular Detection, PCR, Varies Asymptomatic [[id number]] Collected: 12/29/21 1111 Lab Status: Final result [...] ----ADDITIONAL INFORMATION---- This RT-PCR test using the Cardoz SARS-CoV-2 Assay ( Digital Solid State Propulsion.) performed on the Cardoz Two Module System has received Emergency Use Authorization (EUA) by the U.S. Food and Drug Administration, and is modified from the superintendent operating's instructions with a bridging study. Performance characteristics were verified by [facility] in a manner consistent with CLIA requirements. Visit the CDC website: https://www.cdc.gov/coronavirus/ for the most recent guidelines on Coronavirus testing. Fact Sheet for Healthcare Providers: https://www.fda.gov/media/855612/download Fact Sheet for Patients: https://www.fda.gov/media/186021/download ASSESSMENT / PLAN IMPRESSION/REPORT/PLAN #1 Status post [...] Matos DO Shoulder & Elbow Fellow [facility] For any questions or concerns from 6 am until 6 pm, please page Jam service For urgent matters from 6 pm until 6 am, please page Arthur Smallwood at [facility] [phone] [employer] Trey Rdz R.N. - 12/30/2021 4:39 PM [...] Care Plan:continue current management per plan/IPS protocol [employer] Feli Viveros, PharmBrittonDBritton, R.Ph. - 12/30/2021 11:33 [...] home. She is registered with the state [facility] for medical cannabis and she gets her [...] Take 150 mg by mouth every morning. tmzgmmnvfa-hlbfnudlxiqfu-wmao (ESGIC) 50-325-40 mg per tablet Past Week [...] by mouth 2 (two) times a day. [employer] documented in this encounter Procedure Notes Soraida [...] to release the adhesive from the skin. http://Odnoklassniki/products/secureportiv [employer] documented in this encounter Consult Notes Ruth [...] (HCC) ??? Nicotine Dependence Unspecified ??? 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 ABDOMINOPLASTY ??? ARTHROPLASTY - RESECTION SHOULDER Left 12/30/2021 Procedure: ARTHROPLASTY RESECTION SHOULDER.; Surgeon: Cyrus Polk M.D.; Location: [facility] OR ??? BACK SURGERY 1998 [...] Right Lives With: Alone Receives Help From: door and arrival attendant, Family, Friend(s) ADL Assistance: Required assistance ADL Assistance Comments: Gets help from LEAD QUALITY CONTROL TECHNICIAN for her bath/shower and for her meals IADL/Homemaking Assistance: Required assistance IADL/Homemaking Assistance Comments: Gets help for housecleaning Driving: Independent Occupational Role: On disability Prior Mobility/Functional Transfers Level of [place]: Modified independent Gait Devices/Wheelchair Used: Cane Gait [...] session with call light in reach and LEAD QUALITY CONTROL TECHNICIAN present, all needs metand questions answered. Contact monitoring: PPE used during therapy: Therapist was wearing the following PPE throughout entire session: surgicalmask and eye protection Patient was wearing a mask during therapy session: yes, when out of room Outcome Measures [facility] Inpatient Short Form: -[facility] Basic Mobility (V.2) How much help [...] 3-5 steps with a railing?: A Lot -[facility]ERLY [facility] Basic Mobility (V.2) Raw Score: 17 -[facility] Basic Mobility (V.2) Standardized Score: 39.67 Interpretation: Clinicians answer the -[facility] Inpatient Short Form based on [...] (min): 36 min Ruth Gonzalez P.T., D.P.T. [employer] Thao You L.I.C.SBrenton, M.S.W. - 12/31/2021 2:04 PM CSTAssociated Order(s): IP CONSULT TO CARE MANAGEMENT; IP CONSULT TO CARE MANAGEMENT; IP CONSULT TO CARE MANAGEMENT Psychosocial Assessment SUBJECTIVE DEMOGRAPHIC INFORMATION Person(s) present during interview: Patient Primary care clinic and provider: [facility] Primary Language: Scottish Legal Information: Legal decision maker for self [...] / Household Status: Patient resides alone in [place], [place]. She lives in a two bedroom [...] a two bedroom apartment on the [address] [facility] Care Facility Name (if applicable): [...] Behavior: Oriented Communication: Reads, writes and speaks Scottish It is anticipated that the patient will need assistance with .Dressing,bathing, meal prep, housekeeping, shopping ASSISTIVE DEVICES Patient has the following equipment: Eyeglasses, Dentures upper, Dentures lower, cane, walker Patient anticipates potentially needing the following additional equipment: None Transportation needs: Independent to drive, support from family and friends SERVICES REQUESTED Infusion therapy FINANCIAL BROKERS Formal and Informal Resources: Patient receives home health aid services three times per week and chcf visit one time every two weeks through [facility]. FINANCES/INSURANCE Primary insurance: MEDICARE A AND B Secondary insurance: MEDICA ADVANCE DIRECTIVES Advance Directive: Patient does not have advance directive, does not want information DISCHARGE PLANNING Patient is planning on returning home upon her discharge. She currently receives home health aid services and chcf through [facility]. Patient also has support from a [...] good support group consisting of family, friends [facility]. INTERVENTIONS ?? Psychosocial assessment ?? Rapport building ?? Education on coping with chronic pain. PLAN ?? Social work will continue to follow for discharge planning and support. ?? Social work did speak with Pat at [facility] to confirm home health services. ?? Social work will work on infusion therapy referrals as well as home health/outpatient picc site care and labs. Anticipated barriers to the transition of care/plan: None Joe Ervin, M.S.W. 12/31/2021 [employer] Jose Guadalupe Nixon M.D. - 12/31/2021 7:31 [...] on OSH AST. She presented to [facility] (unclear if on antibiotics) for further evaluation given persistent L shoulder pain 08/2021 prompting aspiration (09/25/21) which revealed elevated TNC (19596) with 81% PMNs with cultures positive for1 [...] debridement. The patient was subsequently admitted to [facility] for further management. Intraoperative cultures and synovial [...] - Date/Time Bacteria Cult, Aerobe / Anaerobe+Susc [[id number]] Collected: 12/30/21 1411 Lab Status: In process Specimen: Shoulder, Left Updated: 12/30/21 1540 Narrative: Bacterial Culture: Placed in Bactec aerobic and Bactec anaerobic bottles Bacteria Cult, Aerobe / Anaerobe+Susc [[id number]] Collected: 12/30/21 1405 Lab Status: In process Specimen: Synovial Fluid, Left Shoulder Updated: 12/30/21 1519 Narrative: Bacterial Culture: Placed in Bactec aerobic and Bactec anaerobic bottles Bacteria Cult, Aerobe / Anaerobe+Susc [[id number]] Collected: 12/30/21 1404 Lab Status: In process Specimen: Shoulder, Left Updated: 12/30/21 1536 Narrative: Bacterial Culture: Placed in Bactec aerobic and Bactec anaerobic bottles Bacteria Cult, Aerobe / Anaerobe+Susc [[id number]] Collected: 12/30/21 1403 Lab Status: In process Specimen: Shoulder, Left Updated: 12/30/21 1533 Narrative: Bacterial Culture: Placed in Bactec aerobic and Bactec anaerobic bottles Bacteria Cult, Aerobe / Anaerobe+Susc [[id number]] Collected: 12/30/21 1403 Lab Status: In process Specimen: Shoulder, Left Updated: 12/30/21 1538 Narrative: Bacterial Culture: Placed in Bactec aerobic and Bactec anaerobic bottles SARS Coronavirus 2, Molecular Detection, PCR, Varies Asymptomatic [[id number]] Collected: 12/29/21 1111 Lab Status: Final result [...] ----ADDITIONAL INFORMATION---- This RT-PCR test using the Cardoz SARS-CoV-2 Assay ( Digital Solid State Propulsion.) performed on the Cardoz Two Module System has received Emergency Use Authorization (EUA) by the U.S. Food and Drug Administration, and is modified from the superintendent operating's instructions with a bridging study. Performance characteristics were verified by [facility] in a manner consistent with CLIA requirements. Visit the CDC website: https://www.cdc.gov/coronavirus/ for the most recent guidelines on Coronavirus testing. Fact Sheet for Healthcare Providers: https://www.fda.gov/media/967845/download Fact Sheet for Patients: https://www.fda.gov/media/996708/download ASSESSMENT / PLAN 56-year-old female with a [...] is consistent with aspiration results from original [facility] evaluation which is likely computer help desk representative of the culprit organism causing her [...] follow along closely. Please page the [facility] service pager at [phone] with questions. Thank you for the consultation. Jose Guadalupe Nixon M.D. [employer] Associated attestation - Gucci Salvador M.D. - 12/31/2021 6:07 PM [employer] DEMOGRAPHIC INFORMATION [facility] Number:[phone] Patient Name: Angie Mosquera Date: [...] prescriptions, and Oxycodone. Oxycodone filled here at [facility] pharmacy. Patient going home with an interscalene block OnQ pump. Transportation provided by her son. [employer] Fanny Sifuentes R.N. - 12/31/2021 11:00 PM [...] Nasal mucous membranes remain intact Outcome: Progressing [employer] Ezequiel Hernandez R.N. - 12/30/2021 10:27 PM [...] staff assistance to bathroom. Navin Hernandez R.N. [employer] documented in this encounter OR Notes Op Note - Cyrus Polk M.D. - 12/30/2021 2:50 PM CST STAFF: Cyrus Polk M.D. RESIDENT: Dario Carrera M.D. PRE-OPERATIVE DIAGNOSIS Left infected reverse arthroplasty. POST-OPERATIVE DIAGNOSIS Left infected reverse arthroplasty. A welder first class was necessary for one or more of [...] Cyrus Polk M.D. CT CT Job ID: [id number] [employer] documented in this encounter Miscellaneous Notes Hospital [...] and pain is controlled on oral medications. [employer] documented in this encounter Plan of Treatment Upcoming Encounters Date Type Specialty Care Team Description 09/01/2022 Clinical Communication Admitting/Central Scheduling 09/06/2022 Appointment Radiology Alfredo Herrera O.P.A.-C. [address] [place] [address] 09/06/2022 Office Visit Orthopedic Surgery Cyrus Polk M.D. [address] [place] [address] Scheduled Referrals Name Type Priority Associated Diagnoses Order [facility] Outpatient Referral Routine Direct Infection Of Ordered: Health Referral Left Shoulder In 01/01/20 22 Infectious And Parasitic Diseases Classified Elsewhere (HCC) documented as of this encounter Procedures Procedure Name Priority Date/Time Associated Comments Diagnosis PLACE PERIPHERALLY Routine 01/01/2022 12:11 Resul ts for this INSERTED CENTRAL PM [employer] procedure a re in CATHETER (PICC) the results section. REMOTE OXIMETRY Routine 12/31/2021 5:23 MONITORING CONT. PM [employer] REMOTE OXIMETRY Routine 12/31/2021 5:23 MONITORING CONT. PM [employer] BACTERIA / MANDI Routine 12/31/2021 4:04 Result s for this CULTURE, BLOOD PM [employer] procedure are in the results section. BACTERIA / MANDI Routine 12/31/2021 3:52 Result s for this CULTURE, BLOOD PM [employer] procedure are in the results section. ADULT OXYGEN THERAPY Routine 12/31/2021 8:01 AM [employer] CBC WITH Routine 12/31/2021 4:25 Results for this DIFFERENTIAL, B AM [employer] procedure ar e in the results section. BASIC METABOLIC Routine 12/31/2021 4:25 Results f or this PANEL, S/P AM [employer] procedure are i n the results section. ADULT OXYGEN THERAPY Routine 12/30/2021 8:01 PM [employer] ADULT OXYGEN THERAPY Routine 12/30/2021 5:12 PM [employer] ADULT OXYGEN THERAPY Routine 12/30/2021 5:12 PM [employer] ADULT OXYGEN THERAPY Routine 12/30/2021 3:46 PM [employer] ADULT OXYGEN THERAPY Routine 12/30/2021 3:46 PM [employer] DX SHOULDER LEFT 1 RAD - Timed (for 12/30/2021 3:41 Re sults for this VIEW specific PM [employer] procedure are i n dates/times) the results section. SURGICAL PATHOLOGY, Routine 12/30/2021 2:15 Shoulder Joint Res ults for this FROZEN LAB PM [employer] Disorder Left procedure are in the results section. BACTERIA CULT, Routine 12/30/2021 2:11 Results fo r this AEROBE/ANAEROBE+SUSC PM [employer] procedu re are in the results section. BACTERIA CULT, Routine 12/30/2021 2:05 Results fo r this AEROBE/ANAEROBE+SUSC PM [employer] procedu re are in the results section. BACTERIA CULT, Routine 12/30/2021 2:04 Results fo r this AEROBE/ANAEROBE+SUSC PM [employer] procedu re are in the results section. BACTERIA CULT, Routine 12/30/2021 2:03 Results fo r this AEROBE/ANAEROBE+SUSC PM [employer] procedu re are in the results section. BACTERIA CULT, Routine 12/30/2021 2:03 Results fo r this AEROBE/ANAEROBE+SUSC PM [employer] procedu re are in the results section. ARTHROPLASTY 12/30/2021 12:34 Shoulder Joint RESECTION SHOULDER PM [employer] Disorder Left documented in this encounter Results Place peripherally inserted central catheter (PICC) (01/01/2022 12:11 PM [employer]) Narrative MMODAL - 01/01/2022 12:11 PM [employer] Soraida Dick R.N. ? 01/01/2022 12:13 PM [...] to release the adhesive from the skin. [email or web address]/products/secur [email or web address] Dario Carrera M.D. PROCEDURE/MINOR SURGICAL ORD ERABLES Performing Organization Address City/State/ZIP Code Phon e Number MMODAL MMODAL NA Bacteria / Mandi Culture, Blood #2 (12/31/2021 4:04 PM [employer]) [email or web address] Method Time Signature Bacteria/Valerie No growth 01/05/2022 DTL da Culture, after 5 5:02 PM [employer] Blood days of incubation. Specimen (Source) Anatomical Collection Method Collection Time Re ceived Time Location / / Volume Laterality Blood (Blood, 12/31/2021 4:04 12/31/2021 4:51 Peripheral Draw) PM [employer] PM [employer] Comment: Specimen Source Site: Blood Narrative [facility] - [facility] - 01/05/2022 5:02 PM [employer] Received Bactec aerobic and Bactec anaer obic bottles Dario Carrera M.D. LAB MICROBIOLOGY - GENERAL O RDERABLES Performing Organization Address City/State/ZIP Code Phon e Number [facility] - [address] [place], [place] [address] [facility] [place] [place] [address] Laboratories-[employer] [facility] [address] Bacteria / Mandi Culture, Blood #1 (12/31/2021 3:52 PM [employer]) [facility] [place] Method Time Signature Bacteria/Valerie No growth 01/05/2022 DTL da Culture, after 5 5:02 PM [employer] Blood days of incubation. Specimen (Source) Anatomical Collection Method Collection Time Re ceived Time Location / / Volume Laterality Blood (Blood, 12/31/2021 3:52 12/31/2021 4:50 Peripheral Draw) PM [employer] PM [employer] Comment: Specimen Source Site: Blood Narrative [facility] - [facility] - 01/05/2022 5:02 PM [employer] Received Bactec aerobic and Bactec anaer obic bottles Dario Carrera M.D. LAB MICROBIOLOGY - GENERAL O RDERABLES Performing Organization Address City/State/ZIP Code Phon e Number [facility] - [address] [place], [place] [address] [facility] [place] [address] Laboratories-[employer] [facility] [address] [facility] (ABNORMAL) CBC with Differential, Blood (12/31/2021 4:25 AM [employer]) [facility] gist Method Time Signature Hemoglobin 8.9 (L) 11.6 - 12/31/2021 DTL 15.0 g/dL 5:15 AM [employer] Hematocrit 27.3 (L) 35.5 - 12/31/2021 DTL 44.9 % 5:15 AM [employer] Erythrocytes 3.26 (L) 3.92 - 12/31/2021 DTL 5.13 5:15 AM [employer] x10(12)/L MCV 83.7 78.2 - 12/31/2021 DTL 97.9 fL 5:15 AM [employer] RBC Distrib Width 19.6 (H) 12.2 - 12/31/2021 DTL 16.1 % 5:15 AM [employer] Platelet Count 274 157 - 371 12/31/2021 DTL x10(9)/L 5:15 AM [employer] Leukocytes 6.6 3.4 - 9.6 12/31/2021 DTL x10(9)/L 5:15 AM [employer] Neutrophils 4.91 1.56 - 12/31/2021 DTL 6.45 5:15 AM [employer] x10(9)/L Lymphocytes 1.10 0.95 - 12/31/2021 DTL 3.07 5:15 AM [employer] x10(9)/L Monocytes 0.61 0.26 - 12/31/2021 DTL 0.81 5:15 AM [employer] x10(9)/L Eosinophils <0.03 0.03 - 12/31/2021 DTL 0.48 5:15 AM [employer] x10(9)/L Basophils <0.03 0.01 - 12/31/2021 DTL 0.08 5:15 AM [employer] x10(9)/L Specimen Anatomical Collection Method Collection Time Receive d Time (Source) Location / / Volume Laterality Blood (Blood, 12/31/2021 4:25 AM 12/31/19 5:04 Venous) [employer] AM [employer] Dario Carrera M.D. LAB BLOOD ADD-ON Performing Organization Address City/State/ZIP Code Phon e Number [facility] - [address] [place], [place] [address] [facility] [place] [address] Laboratories-[employer] [facility] [address] (ABNORMAL) Basic Metabolic Panel (12/31/2021 4:25 AM [employer]) P athologist Signature Potassium, S 4.4 3.6 - 5.2 12/31/2021 DTL mmol/L 5:35 AM [employer] Sodium, S 134 (L) 135 - 145 12/31/2021 DTL mmol/L 5:35 AM [employer] Chloride, S 103 98 - 107 12/31/2021 DTL mmol/L 5:35 AM [employer] Bicarbonate, S 22 22 - 29 12/31/2021 DTL mmol/L 5:35 AM [employer] Anion Gap 9 7 - 15 12/31/2021 DTL 5:35 AM [employer] BUN (Blood Urea 21 6 - 21 12/31/2021 DTL Nitrogen), S mg/dL 5:35 AM [employer] Creatinine 0.74 0.59 - 12/31/2021 DTL 1.04 mg/dL 5:35 AM [employer] eGFR-Non 90 >=60 12/31/2021 DTL Black/ mL/min/BSA 5:35 AM [employer] Finnish Comment: ----ADDITIONAL INFORMATION---- Estimated GFR calculated using the 2009 CKD_EPI creatinine equation. eGFR-Black/ >90 >=60 mL/min/BSA 2021 5:35 AM [employer] DTL Comment: ----ADDITIONAL INFORMATION---- Estimated GFR calculated using the 2009 CKD_EPI creatinine equation. Calcium, Total, S 8.7 8.6 - 10.0 mg/dL 12/31/2021 5:35 AM [employer] DTL Glucose, S 138 70 - 140 mg/dL 12/31/2021 5:35 AM [employer] D TL Specimen Anatomical Collection Method Collection Time Receive d Time (Source) Location / / Volume Laterality Blood (Blood, 12/31/2021 4:25 AM 12/31/19 5:18 Venous) [employer] AM [employer] Dario Carrera M.D. LAB BLOOD ADD-ON Performing Organization Address City/State/ZIP Code Phon e Number [facility] - [address] [place], [place] [address] [facility] [place] [address] Laboratories-[employer] [facility] [address] DX Shoulder Left 1 View (12/30/2021 3:41 PM [employer]) Anatomical Region Laterality Modality Upper Extremity, Shoulder, Musculoskeletal RST LOS, Left Computed Radiography Musculoskeletal ARZ LOS, Muskuloskeletal FLA LOS Specimen (Source) Anatomical Collection Method Collection Time Re ceived Time Location / / Volume Laterality 12/30/2021 3:54 PM [employer] Impressions 12/30/2021 3:59 PM [employer] Postoperative changes of a left shoulder arthroplasty resection and placement of an antibiotic spacer. Negat lalo for postoperative purposes. Narrative 12/30/2021 3:59 PM [employer] EXAM: ??DX SHOULDER LEFT 1 VIEW Procedure Note Timothy Resendiz M.D. - 12/30/2021Forma tting of this note might be different from the original. EXAM: DX SHOULDER LEFT 1 VIEW IMPRESSION: Postoperative changes of a left shoulder arthroplasty resection and placement of an antibiotic spacer. Negat lalo for postoperative purposes. Dario Carrera M.D. IMG DIAGNOSTIC IMAGING [facility] Surgical Pathology, Frozen Lab (12/30/2021 2:15 PM [employer]) Component Value Ref Test Analysis Performed At [facility] Range Method Time Signature 01/01/2022 METH 8:22 AM [employer] Participated in Kelly Howard 01/01/2022 JARED the D.O.-Pathology 8:22 AM [employer] Interpretation Resident Report Solomon Marcum M.D. 01/01/2022 METH electronically 8:22 AM [employer] signed by I verify that I have examined all relevant slides/materials for the specimen(s) and rendered or confirmed the diagnosis. Frozen A. ??Synovium, left shoulder, excision: ??Synovial tissue 01/01/2022 METH Intraoperative with 8:22 AM [employer] Report acute inflammation (>5 neutrophils/high power field). Signed by Solomon Marcum M.D. 12/31/2021 8:17 AM Gross Description A. ??Received fresh labeled left shoulder is a 1.4 x 0.9 x 01/01/2022 METH 0.4 cm aggregate of red and campbell fibrous tissue, which is 8:22 AM [employer] soft. ??All submitted for frozen and permanent sections. Grossed by Nikki Gallardo. Block Summary A Left shoulder 01/01/2022 METH A1 Left shoulder-frozen 8:22 AM [employer] Interpretation FINAL DIAGNOSIS 01/01/2022 METH 8:22 AM [employer] A. ??Synovium, left shoulder, excision: ??Synovial tissue with acute inflammation (>5 neutrophils/high power field). Specimen (Source) Anatomical Collection Method Collection Time Re ceived Time Location / / Volume Laterality Tissue (Shoulder, 12/30/2021 2:15 PM Left) [employer] Narrative This result has an attachment that is no t available. Cyrus Polk M.D. LAB SURG PATH ORDERABLES Performing Organization Address City/State/ZIP Code Phon e Number [facility] - [address] [place] [address] [facility] [place] [address] Laboratories-[employer] [facility] [address] [facility] Bacteria Cult, Aerobe / Anaerobe+Susc (12/30/2021 2:11 PM [employer]) [facility] gist Method Time Signature Bacteria Cult, No growth 01/13/2022 DTL Aerobe/Anaerob after 14 4:02 PM [employer] e+Susc days of incubation. Specimen Anatomical Collection Method Collection Time Receive d Time (Source) Location / / Volume Laterality Shoulder, Left 12/30/2021 2:11 PM 022 3:38 [employer] PM [employer] Comment: Specimen Source Site: Tissue #4 Narrative [facility] - [facility] - 01/13/2022 4:02 PM [employer] Bacterial Culture: Placed in Bactec aero bic and Bactec anaerobic bottles Cyrus Polk M.D. LAB MICROBIOLOGY - GENERAL O RDERABLES Performing Organization Address City/State/ZIP Code Phon e Number [facility] - [address] [place], [place] [address] [facility] [place] [address] [facility] [facility] [address] (ABNORMAL) Bacteria Cult, Aerobe / Anaerobe+Susc (12/30/2021 2:05 PM [employer]) Component Value Ref Test Analysis Performed At Patholo gist Range Method Time Signature Bacteria STAPHYLOCOCCUS EPIDERMIDIS 01/11/2022 DT L Cult, Growth after 4 days 7:55 AM [employer] Aerobe/Anaero (A) be+Susc Comment: Semi-Urgent Result. Semi-Urgent This is a semi-urgent result [facility] - ([facility]) [facility] S Specimen Anatomical Collection Method Collection Time Receive d Time (Source) Location / / Volume Laterality Synovial Fluid, 12/30/2021 2:05 PM 2021 3:17 Left Shoulder [employer] PM [employer] Comment: Specimen Source Site: Fluid Narrative [facility] - 01/11/2022 7:55 AM [employer] Bacterial Culture: Placed in Bactec aero bic [...] - GENERAL O MARY Performing Organization Address City/[facility] Phon e Number [facility] - [address] [place], [place] [address] [facility] [place] [address] Laboratories-[employer] [facility] [address] [facility] Bacteria Cult, Aerobe / Anaerobe+Susc (12/30/2021 2:04 PM [employer]) [facility] Method Time Signature Bacteria Cult, No growth 01/13/2022 DTL Aerobe/Anaerob after 14 4:02 PM [employer] e+Susc days of incubation. Specimen Anatomical Collection Method Collection Time Receive d Time (Source) Location / / Volume Laterality Shoulder, Left 12/30/2021 2:04 PM 022 3:34 [employer] PM [employer] Comment: Specimen Source Site: Tissue #3 Narrative [facility] - 01/13/2022 4:02 PM [employer] Bacterial Culture: Placed in Bactec aero bic and Bactec anaerobic bottles Cyrus Polk M.D. LAB MICROBIOLOGY - GENERAL O MARY Performing Organization Address City/[facility] Phon e Number [facility] - [address] [place], [place] [address] [facility] [place], [place] [id number] [place] [address] [address] [facility] Bacteria Cult, Aerobe / Anaerobe+Susc (12/30/2021 2:03 PM [employer]) [facility] Method Time Signature Bacteria Cult, No growth 01/13/2022 DTL Aerobe/Anaerob after 14 4:02 PM [employer] e+Susc days of incubation. Specimen Anatomical Collection Method Collection Time Receive d Time (Source) Location / / Volume Laterality Shoulder, Left 12/30/2021 2:03 PM 022 3:37 [employer] PM [employer] Comment: Specimen Source Site: Tissue #2 [facility] - 01/13/2022 4:02 PM [employer] Bacterial Culture: Placed in Bactec aero bic and Bactec anaerobic bottles Cyrus Polk M.D. LAB MICROBIOLOGY - GENERAL O MARY Performing Organization Address City/State/[facility] Phon e Number [facility] - [address] [place], [place] [address] [place] [id number] Bacteria Cult, Aerobe / Anaerobe+Susc (12/30/2021 2:03 PM [employer]) [facility] Method Time Signature Bacteria Cult, No growth 01/13/2022 [facility] Aerobe/Anaerob after 14 4:02 PM [employer] e+Susc days of incubation. Specimen Anatomical Collection Method Collection Time Receive d Time (Source) Location / / Volume Laterality Shoulder, Left 12/30/2021 2:03 PM 022 3:31 [employer] PM [employer] Comment: Specimen Source Site: Tissue #1 Narrative [facility] - 01/13/2022 4:02 PM [employer] Bacterial Culture: Placed in Bactec aero bic and Bactec anaerobic bottles Cyrus Polk M.D. LAB MICROBIOLOGY - GENERAL O MARY Performing Organization Address [facility] [place] Phon e Number [facility] - [address] [place] [id number] [place] [address] documented in this encounter Visit Diagnoses Diagnosis [...] tablet 1,000 mg Given 12/30/2021 12:02 PM [employer] 1,00 0 mg (TYLENOL) 1,000 mg, oral, Once, On Tue12/30/21 at 1215, For 1 dose, Pre-Op acetaminophen tablet 1,000 mg (TYLENOL) Given 01/01/2022 11:36 AM [employer] 1,000 mg 1,000 mg, oral, Every 6 hours, First dose on Tue12/30/21 at 1800 Given 01/01/2022 6:28 AM [employer] 1,000 mg Given 12/31/2021 11:51 PM [employer] 1,000 mg albuterol nebulizer solution 2.5 mg Given 12/31/2021 4:44 PM [employer] 2.5 mg 2.5 mg, nebulization, Every 6 hours PRN, wheezing, Starting on Tue12/30/21 at 1711, Albuterol nebs were interchanged for albuterol/levalbuterol MDI (same frequency) atorvastatin tablet 80 mg (LIPITOR) Given 12/31/2021 8:57 PM [employer] 80 mg 80 mg, oral, Daily at bedtime, First dose on Tue12/30/21 at 2100 Given 12/30/2021 9:55 PM [employer] 80 mg benzonatate capsule 100 mg (TESSALON PER LES) Given 01/01/2022 3:10 AM [employer] 100 mg 100 mg, oral, 3 times daily PRN, cough, Starting on Tue12/31/21 at 1702, Swallow whole. Do NOT crush, chew or open capsule. Given 12/31/2021 5:39 PM [employer] 100 mg bupivacaine PF 0.2 % 550 mL in NaCl New Bag 01/01/2022 3:15 PM [employer] 6 mL/hr 6 mL/hr 0.9% On-Q pain pump (CB004) 6 mL/hr, nerve catheter, Continuous, Starting on Tue01/01/22 at 1500, PACU & Post-Op, Location: Nerve Catheter Location, Nerve Catheter Location: Interscalene, Device: On-Q Pump bupivacaine PF 0.2 % in Rate/Dose Verify 01/01/2022 1:00 AM [employer] 6 mL/ hr 6 mL/hr NaCl 0.9% 341 mL infusion (MARCAINE) 6 mL/hr, nerve catheter, Continuous, Starting on Tue12/30/21 at 1600, PACU & Post-Op, Nerve Catheter Location: Interscalene, Device: Hospital Infusion Pump Rate/Dose Verify 12/31/2021 12:11 AM [employer] 6 mL/hr 6 mL/hr New Bag 12/30/2021 3:49 PM [employer] 6 mL/hr 6 mL/hr buPROPion XL 24 hr tablet 150 mg (WELLBUTRIN Given 02/2022 8:35 AM [employer] 150 mg XL) 150 mg, oral, Every morning, First dose on Tue12/31/21 at 0900, Swallow whole. Do NOT crush, chew, or split tablet. Given 12/31/2021 8:16 AM [employer] 150 mg calcium carbonate chewable tablet Given 12/31/2021 11: 46 PM [employer] 400 mg of calcium 400 mg of calcium (TUMS) 400 mg of calcium, oral, Every 2 hour PRN, indigestion, Starting on Tue12/30/21 at 1711, Doses listed are in mg of elemental calcium. Take with food. 500 mg calcium carbonate contains 200 mg of elemental calcium. Given 12/31/2021 9:15 PM [employer] 400 mg of calcium carboxymethylcellulose 0.5 % ophthalmic Given 01/01/2022 1:15 AM [employer] 2 drops solution 2 drop (REFRESH PLUS) 2 drop, both eyes, 4 times daily PRN, dry eyes, Starting on Tue12/30/21 at 1711 Given 12/31/2021 12:31 PM [employer] 2 drops Given 12/31/2021 12:23 AM [employer] 2 drops ceFAZolin in dextrose (iso-os) IVPB 2 New Bag 01/01/2022 6:27 AM [employer] 2 g 200 mL/hr g (ANCEF) 2 g, intravenous, at 200 mL/hr, Administer over 30 Minutes, Every 8 hours, First dose on Tue12/30/21 at 2200, Start within 8 hours of last IV dose., Drug Monitoring Program: Pharmacist to adjust medication dosing based on indication and drug clearance factors., Indications: Bone and/or joint infection New Bag 12/31/2021 10:32 PM [employer] 2 g 200 mL/hr New Bag 12/31/2021 2:21 PM [employer] 2 g 200 mL/hr cefTRIAXone in dextrose (iso-osm) IVPB New Bag 01/01/2022 2:38 PM [employer] 2 g 200 mL/hr 2 g (ROCEPHIN) 2 g, intravenous, at 200 mL/hr, Administer over 15 Minutes, Daily before lunch, First dose on Tue01/01/22 at 1345, Drug Monitoring Program: Pharmacist to adjust medication dosing based on indication and drug clearance factors., Indications: Bone and/or joint infection cetirizine tablet 10 mg (ZyrTEC) Given 01/01/2022 8:35 AM [employer] 10 mg 10 mg, oral, 2 times daily, First dose on Tue12/30/21 at 2100, Drug Monitoring Program: Pharmacist to adjust medication dosing based on indication and drug clearance factors. Given 12/31/2021 8:57 PM [employer] 10 mg Given 12/31/2021 8:16 AM [employer] 10 mg cholecalciferol (vitamin D3) tablet 25 m cg Given 01/01/2022 8:35 AM [employer] 25 mcg 25 mcg, oral, Daily, First dose on Tue12/31/21 at 0900, cholecalciferol (vitamin D3) orderable was interchanged for cholecalciferol (vitamin D3) tablet/capsule Given 12/31/2021 8:16 AM [employer] 25 mcg D5W infusion 10-250 mL/hr, intravenous, [...] 5 mg (VALIUM) Given 12/31/2021 12:31 PM [employer] 5 mg 5 mg, oral, 4 times daily PRN, muscle spasms, Starting on Tue12/30/21 at 2243 Given 12/31/2021 1:59 AM [employer] 5 mg diphenhydrAMINE capsule 25 mg (BENADRYL) 25 mg, oral, Daily PRN, itching, Starting on Tue 2 at 0854 diphenhydrAMINE capsule 75 mg (BENADRYL) Given 01/01/2022 8:49 AM [employer] 75 mg 75 mg, oral, Bedtime PRN, sleep, Starting on Tue12/30/21 at 1715 FLUoxetine capsule 80 mg (PROzac) Given 01/01/2022 8:34 AM [employer] 80 mg 80 mg, oral, Daily, First dose on Tue12/31/21 at 0900, FLUoxetine orderable was interchanged for FLUoxetine tablet/capsule Given 12/31/2021 8:16 AM [employer] 80 mg fluticasone furoate 100 mcg/actuation Given 01/01/2022 8:[address] 2 puffs inhaler 2 puff (ARNUITY ELLIPTA) 2 puff, inhalation, 2 times daily, First dose on Tue12/30/21 at 2100, fluticasone furoate 100 mcg was interchanged for fluticasone MDI 110 mcg Given 12/31/2021 9:04 PM [employer] 2 puffs Given 12/31/2021 8:17 AM [employer] 2 puffs granisetron (PF) injection 1 mg (KYTRIL) Given 12/30/2021 3:57 PM [employer] 1 mg 1 mg, intravenous, Once as needed, nausea, vomiting, Starting on Tue12/30/21 at 1546, For 1 dose, PACU (only), If patient does not respond to ondansetron or haloperidol. (order of antiemetic administration - ondansetron then haloperidol then granisetron) haloperidol lactate injection 1 mg (HALD OL) Given 12/30/2021 4:31 PM [employer] 1 mg 1 mg, intravenous, Every 6 [...] injection 0.2 mg Given 12/30/2021 4:17 PM [employer] 0.2 mg (DILAUDID) 0.2 mg, intravenous, Every 5 min PRN, moderate pain or score 4-6 of 10, severe pain or score 7-10 of 10, Starting on Tue12/30/21 at 1546, PACU (only), Up to maximum total dose of 2 mg Given 12/30/2021 4:07 PM [employer] 0.2 mg Given 12/30/2021 3:55 PM [employer] 0.2 mg HYDROmorphone (PF) injection 0.4 mg Given 01/01/2022 4:56 AM [employer] 0.4 mg (DILAUDID) 0.4 mg, intravenous, Every 2 hour PRN, severe pain or score 7-10 of 10, Starting on Tue12/30/21 at 1711, For 5 doses, May administer if pain is greater than 7 after scheduled and PRN regimen exhausted. If pain remains greater than 7, notify primary service. Given 12/31/2021 11:35 AM [employer] 0.4 mg Given 12/31/2021 4:14 AM [employer] 0.4 mg ipratropium-albuteroL 0.5-2.5 mg/3 mL nebulizer Given 01/01/2022 3:15 AM [employer] 3 mL solution 3 mL (DUONEB) 3 mL, nebulization, 4 times daily PRN, shortness of breath, wheezing, Starting on Tue12/30/21 at 1711 ketamine injection 10 mg (KETALAR) Given 12/30/2021 12:38 PM [employer] 10 mg 10 mg, intravenous, Once, On Tue12/30/21 at 1300, For 1 dose, Pre-Op lactated ringers Rate/Dose Change 01/01/2022 1:00 AM [employer] 20 mL/hr 20 mL/hr 75 mL/hr, intravenous, Continuous, Starting on Tue12/30/21 at 1715, Until patient has 500cc po intake New Bag 12/31/2021 11:46 PM K [employer] 75 mL/hr 75 mL/hr Rate/Dose Change 12/31/2021 3:55 AM K [employer] 20 mL/hr 20 mL/hr lactated ringers Continued from OR 12/30/2021 4:00 PM K [employer] 75 mL/hr 75 mL/hr 75 mL/hr, intravenous, Continuous, Starting on Tue12/30/21 at 1600, PACU & Post-Op lamoTRIgine tablet 200 mg (LaMICtaL) Given 01/01/2022 8:34 AM K [employer] 200 mg 200 mg, oral, 2 times daily, First dose on Tue12/30/21 at 2100 Given 12/31/2021 8:56 PM K [employer] 200 mg Given 12/31/2021 8:16 AM K [employer] 200 mg midazolam (PF) injection 1 mg (VERSED) Given 12/30/2021 12:38 PM K [employer] 2 mg 1 mg, intravenous, Every 2 [...] 4 mg (ZOFRAN) Given 01/01/2022 1:16 AM K [employer] 4 mg 4 mg, intravenous, Every 6 hours PRN, nausea, vomiting, Starting on Tue12/30/21 at 1711, For 48 hours, Reassess for nausea or vomiting after at least 10 minutes. If nausea or vomiting persists administer next ordered antiemetic medications (order for antiemetic medication administration ondansetron then haloperidol then promethazine). Given 12/31/2021 8:16 AM K [employer] 4 mg oxyCODONE 12 hr tablet 20 mg (OxyCONTIN) Given 12/30/2021 12:35 PM K [employer] 20 mg 20 mg, oral, Once, On Tue12/30/21 at 1300, For 1 dose, Pre-Op, Swallow whole. Do NOT crush, chew, or split tablet. oxyCODONE IR tablet 10 mg (ROXICODONE) Given 12/31/2021 10:43 AM K [employer] 10 mg 10 mg, oral, Every 4 hours PRN, severe pain or score 7-10 of 10, Starting on Tue12/30/21 at 1536 Given 12/31/2021 6:19 AM K [employer] 10 mg Given 12/31/2021 12:22 AM K [employer] 10 mg oxyCODONE IR tablet 10 mg (ROXICODONE) Given 12/31/2021 2:21 PM K [employer] 10 mg 10 mg, oral, Every 4 hours PRN, severe pain or score 7-10 of 10, Starting on Tue12/31/21 at 1415 oxyCODONE IR tablet 10 mg (ROXICODONE) Given 01/01/2022 2:38 PM K [employer] 10 mg 10 mg, oral, Every 3 hours PRN, severe pain or score 7-10 of 10, Starting on Tue12/31/21 at 1745 Given 01/01/2022 11:35 AM K [employer] 10 mg Given 01/01/2022 7:07 AM K [employer] 10 mg oxyCODONE IR tablet 5 mg (ROXICODONE) 5 mg, oral, Every 3 hours PRN, moderate pain or score 4-6 of 10, Starting on Tue12/31/21 at 1745, If patient is >75 consider changing to 2.5-5mg scale pantoprazole DR tablet 40 mg (PROTONIX) Given 01/01/2022 3:46 PM K [employer] 40 mg 40 mg, oral, 2 times daily before breakfast and dinner, First dose on Tue12/31/21 at 0700, pantoprazole 40 mg oral twice daily was interchanged for esomeprazole 20 or 40 mg oral twice daily Swallow whole. Do NOT crush, chew, or split tablet. Given 01/01/2022 6:29 AM K [employer] 40 mg Given 12/31/2021 4:47 PM K [employer] 40 mg pregabalin capsule 600 mg (LYRICA) Given 01/01/2022 8:34 AM K [employer] 600 mg 600 mg, oral, 2 times daily, First dose on Tue12/30/21 at 2100 Given 12/31/2021 8:56 PM K [employer] 600 mg Given 12/31/2021 8:15 AM K [employer] 600 mg QUEtiapine tablet 50 mg (SEROquel) Given 12/31/2021 8:57 PM K [employer] 50 mg 50 mg, oral, Daily at bedtime, First dose on Tue12/30/21 at 2100 Given 12/30/2021 9:55 PM K [employer] 50 mg scopolamine base 1 mg Medication Applied 12/30/2021 12:02 PM 1 patch Behind Left Ear over 3 days 1 patch K [employer] (TRANSDERM SCOP) 1 patch, transdermal, Administer over 72 Hours, Once as needed, nausea and vomiting, Starting on Tue12/30/21 at 1201, For 1 dose, Pre-Op, Contains 1.5 mg to deliver 1 mg/72 hours. sennosides-docusate sodium 8.6-50 mg per Given 01/01/2022 8:35 A M K [employer] 1 tablet tablet 1 tablet (SENOKOT-S) 1 tablet, oral, 2 times daily, First dose on Tue12/30/21 at 2100, Do not give if patient has diarrhea. Given 12/31/2021 8:57 PM K [employer] 1 tablet Given 12/31/2021 8:16 AM K [employer] 1 tablet sodium chloride 0.9 % injection [...] injection 3 mL Given 12/31/2021 8:18 AM K [employer] 3 mL 3 mL, intravenous, Every 12 hours scheduled, First dose on Tue12/30/21 at 2100, PACU & Post-Op, Peripheral Intravenous Catheter and Rapid Infusion Catheter, when no infusion to maintain patency Given 12/30/2021 9:53 PM K [employer] 3 mL zonisamide capsule 300 mg (ZONEGRAN) Given 01/01/2022 8:35 AM K [employer] 300 mg 300 mg, oral, 2 times daily, First dose on Tue12/30/21 at 2100, Swallow whole. Do NOT crush, chew or open capsule. Given 12/31/2021 8:57 PM K [employer] 300 mg Given 12/31/2021 8:16 AM K [employer] 300 mg documented in this encounter Active and Recently Administered Medications Times are shown in K [employer]. Scheduled Medication Order 12/30/2021 12/31/2021 01/01/2022 acetaminophen [...] 1419 (Given - Provider: Emre Rodriguez APRN, COMPUTER TECHNICIAN) 2,000 mg (rounded from 1,747.5 mg = [...] Provider: Maci Gonzalez R.N.)2055 (Given - Provider: Sharifa KeenN.) [...] [address] N, indigestion, Starting on Tue12/30/21 at 1711, [...] over 3 days 1 patch (TRANSDERM S PRESSER ALL AROUND) (CANCELED) 1202 (Medication Applied - Provider: Manda [...] or score 7-10 of 10, Starting on Clementien 12/31/21 at 1745 documented in this encounter Additional Health Concerns Assessment Noted Time PHQ-9 Depression Total Score: 16 02/11/2021 12:00 AM C DT documented as of this encounter Care Teams Emergency Vehicle Operator Relationship Specialty Start Date End Date Elsewhere, Pcp PCP - General Family Medicine 12/25/21 documented as of this encounter
--- OUTSIDE RECORDS SUMMARY | 2022-08-17 06:56 | XMS_ITS | Encounter Summary ---
:1965 Author Organization [facility] Address [address] [place] [address] Care Team Providers Name Role Phone Elsewhere, Pcp Primary Care Provider Unavailable Encounter Details Date Type Department Care Team Description 01/01/2022 Clinical Communication [facility] Sapna Dodge C.Ph.T. 201 [facility] [phone] [place], [place] (Work) [phone] Social History Tobacco Use [...] Appointment Radiology Alfredo Herrera O.PBrittonABritton-Araceli [address] [place] [address] 09/06/2022 Office Visit Orthopedic Surgery Cyrus Polk M.D. [address] [place] [address] documented as of this encounter Visit Diagnoses Not on filedocumented in this encounter Additional Health Concerns Assessment Noted Time PHQ-9 Depression Total Score: 16 02/11/2021 12:00 AM C DT documented as of this encounter Care Teams Waiter/Waitress Bar Relationship Specialty Start Date End Date Elsewhere, Pcp PCP - General Family Medicine 12/25/21 documented as of this encounter
--- OUTSIDE RECORDS SUMMARY | 2022-08-17 06:56 | XMS_ITS | Encounter Summary ---
:1965 Author Organization [facility] Address [address] [place] [id number] Care Team Providers Name Role Phone Elsewhere, Pcp Primary Care Provider Unavailable Reason for Visit Outpatient (Routine) - Closed Specialty Diagnoses / Procedures Referred By Contact Refer red To Contact Infectious Diseases Diagnoses Aftercare [facility] [address] [place] [phone] Referral ID Status Reason Start Date Expiration Date Visits Requ ested Visits Authorized [id number] Closed 01/01/2022 01/01/2023 1 1 Encounter Details Date Type Department Care Team Description 02/25/2022 Comprehensive Visit Section of Christiano Nixon M.D. [address] [place] [phone] Senior Care Antibiotic Treatment (Primary Dx); Infectious Diseases Russell Santos M.D. [address] [place] [phone] Infection Shoulder Prosthesis Subsequent ; in [place], Direct Infecti on Of Left Shoulder In Infectious And Parasitic Diseases Classified Elsewhere ([facility]); [place] Aftercare Total Shoulder Art hroplasty [address] [place] [phone] Social History Tobacco Use Types Packs/Day [...] 56 y.o. Birthdate: 1965 Sex: female Address: [address] [place] [phone] Referring Provider: Jose Guadalupe Nixon M.D. REASON [...] on OSH AST. She presented to [facility] (unclear if on antibiotics) for further evaluation given persistent L shoulder pain 08/2021 prompting aspiration (09/25/21) which revealed elevated TNC (33435) with 81% PMNs with cultures positive for [...] patient was subsequently admitted to [facility] for further management. Intraoperative cultures and [...] is consistent with aspiration results from original [facility] evaluation which is likely retail sales representative of the culprit organism causing [...] of Infectious Diseases OPAT monitoring program at [phone] after dismissal. Primary service to follow labs while patient is hospitalized. [place] pharmacist to adjust dosing after dismissal 4. [...] 150 mg by mouth every morning. ??? oikxepjpow-spnrfuwlcdetz-xfsb (ESGIC) 50-325-40 mg per tablet Take 1 [...] ago Resulting Agency CULTURE RESULT??Abnormal?? [facility] CULTURE 1+ Staphylococcus coagulase negative [facility] GRAM STAIN ? 1+ PMNs [facility] GRAM STAIN ? No organisms seen [facility] GRAM STAIN ? 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 Hepatic Function Panel ??? Basic Metabolic Panel Spent 36 minutes in total time both qxmi-ht-pgnn and non weot-gg-hplo to face documented in this encounter Plan of Treatment Upcoming Encounters Date Type Specialty Care Team Description 09/01/2022 Clinical Communication Admitting/Central Scheduling 09/06/2022 Appointment Radiology Alfredo Herrera O.P.A.-C. [address] [place] [address] 09/06/2022 Office Visit Orthopedic Surgery Cyrus Polk M.D. [address] [place] [address] documented as of this encounter Results Basic [...] 02/25/2022 DTL Black/ mL/min/BSA 11:19 AM CDT [place] Comment: ----ADDITIONAL INFORMATION---- Estimated GFR calculated using [...] Number [facility] - [address] [place] [phone] [place] [address] [facility] 200 [facility] Hepatic Function Panel (02/25/2022 10:09 AM CDT) [facility] gist Method Time Signature Bilirubin, Total, [...] [facility] - [address] [place], [place] [address] [facility] [place] [address] [facility] [address] documented in this encounter Visit Diagnoses Diagnosis Content Administrator Antibiotic Treatment - Primary Infection Shoulder Prosthesis Subsequent Direct Infection Of Left Shoulder In Inf ectious And Parasitic Diseases Classified Elsewhere (HCC) Aftercare Total Shoulder Arthroplasty documented in this encounter Additional Health Concerns Assessment Noted Time PHQ-9 Depression Total Score: 16 02/11/2021 12:00 AM C DT documented as of this encounter Care Teams Manager Information Relationship Specialty Start Date End Date Elsewhere, Pcp PCP - General Family Medicine 12/25/21 documented as of this encounter
--- OUTSIDE RECORDS SUMMARY | 2022-08-17 06:56 | XMS_ITS | Encounter Summary ---
:1965 Author Organization [facility] Address [address] [place] [address] Care Team Providers Name Role Phone Elsewhere, Pcp Primary Care Provider Unavailable Reason for Visit Outpatient (Routine) - Closed Specialty Diagnoses / Procedures Referred By Contact Refer red To Contact Orthopedic Surgery Diagnoses Pain Shoulder Left Alfredo Herrera, [facility] O.P.A.-C [address] [place] [phone] Referral ID Status Reason Start Date Expiration Date Visits Requ ested Visits Authorized [id number] Closed 12/30/2021 12/30/2022 1 1 Encounter Details Date Type Department Care Team Description 02/25/2022 Office Visit Department of Orthopedic Cyurs Polk , Pain Shoulder Left Surgery in [facility] [address] [place] [address] [address] [place] [phone] Social History Tobacco Use Types Packs/Day Years [...] you attend confucianism or Patient refused 2021 buddhist services? Do you belong to any clubs or No 05/17/2022 organizations such as confucianism groups, [employer], fraMozes or athletic groups, or school groups? How [...] surgery may involve the use of a center medical director made by a company [employer] I or one of my partners have collaborated to design, develop, or improve orthopedic implants, instruments, or products. Both the [facility] and the individual surgeons involved receive royalty payments from the use of those specific devices at other institutions, but no royalties or any other payments are paid for the use of those devices with any [facility] patient. The clinical rationale for the use of those devices as well as the availability and applicability of alternative devices was reviewed. He understands that the final decision for the use of a specific center medical director often is made at the time of surgery. All of his questions were answered; he understands and agrees with my approach to device selection and wants to proceed. documented in this encounter Plan of Treatment Upcoming Encounters Date Type Specialty Care Team Description 09/01/2022 Clinical Communication Admitting/Central Scheduling 09/06/2022 Appointment Radiology Alfredo Herrera O.P.A.-C. [address] [place] [address] 09/06/2022 Office Visit Orthopedic Surgery Cyrus Polk M.D. [address] [place] [address] documented as of this encounter Visit Diagnoses Diagnosis Pain Shoulder Left documented in this encounter Additional Health Concerns Infection Onset Date Last Indicated Resolved Time COVID19 Pending 02/25/2022 02/25/2022 02/25/2022 3:59 PM CDT Assessment Noted Time PHQ-9 Depression Total Score: 16 02/11/2021 12:00 AM C DT documented as of this encounter Care Teams Intranet Specialist Relationship Specialty Start Date End Date Elsewhere, Pcp PCP - General Family Medicine 12/25/21 documented as of this encounter
--- OUTSIDE RECORDS SUMMARY | 2022-08-17 06:56 | XMS_ITS | Encounter Summary ---
:1965 Author Organization [facility] Address [address] [place] [address] Care Team Providers Name Role Phone Elsewhere, Pcp Primary Care Provider Unavailable Encounter Details Date Type Department Care Team Description 01/08/2022 Orders Only Pharmacy Prior Auth RO Elsewhere, Pcp [phone] Social History Tobacco Use Types Packs/Day Years [...] you attend hinduism or Patient refused 2021 sikh services? Do [...] Appointment Radiology Alfredo Herrera O.P.A.-C. [address] [place] [address] 09/06/2022 Office Visit Orthopedic Surgery Cyrus Polk M.D. [address] [place] [address] documented as of this encounter Visit Diagnoses Not on filedocumented in this encounter Additional Health Concerns Assessment Noted Time PHQ-9 Depression Total Score: 16 02/11/2021 12:00 AM C DT documented as of this encounter Care Teams Recycling Attendant Relationship Specialty Start Date End Date Elsewhere, Pcp PCP - General Family Medicine 12/25/21 documented as of this encounter
--- OUTSIDE RECORDS SUMMARY | 2022-08-17 06:56 | XMS_ITS | Encounter Summary ---
:1965 Author Organization [facility] Address [address] [place] [address] Care Team Providers Name Role Phone Elsewhere, Pcp Primary Care Provider Unavailable Reason for Visit Reason Comments OPAT Intervention Encounter Details Date Type Department Care Team Description 01/28/2022 Clinical Communication Section of Ruth Eddy (Intervention Infectious T, R.N. ) Diseases in [address] [place] [phone] [place] [address] [place], [place] (Work) [phone] Social History Tobacco Use Types Packs/Day Years [...] you attend tenriism or Patient refused 2021 congregational services? Do [...] are for now to obtain ALP trend. PAPER MACHINE OPERATOR Telephone Encounter - Desirae Domingo R.N. - 02/01/2022 12:11 PM CST Maritza calls from [place] regarding Alk phos from 01/28. It is greater than 1.5 the upper limit of normal. PAPER MACHINE OPERATOR Telephone Encounter - Su Greene, Pharm.D., R.Ph. - 01/29/2022 8:49 AM CST Reviewed WBC trend including WBC on 01/28, no changes at this time, see note from my colleague Jennifer Roca for details. PAPER MACHINE OPERATOR Telephone Encounter - Ruth Eddy R.N. - 01/29/2022 8:14 AM CST OPAT NOTE ?? Infusion Provider: [facility], phone: [phone], fax: [phone] Labs and site care at [facility], phone: [phone] Antimicrobial(s) currently prescribed: See Med List Hyperlink in note Firm stop date: 02/11/22 ?? Lab results from are viewable in the MCR record--listed as External Labs (received via fax, which has been uploaded to Document Viewer/Media) ?? Interpretation and action: The labs were reviewed. WBC and ANC are improving. I will send this to the provider for review. PAPER MACHINE OPERATOR Telephone Encounter - Jennifer Roca Pharm.D., R.Ph. - 01/28/2022 10:21 AM LACE PAPER MACHINE OPERATOR Pertinent labs and antimicrobial regimen as indicated [...] time. For monitoring: continue weekly OPAT labs. PAPER MACHINE OPERATOR Telephone Encounter - Ruth Eddy RBrittonN. - 01/28/2022 9:40 AM CST OPAT NOTE Infusion Provider: [facility], phone: [phone], fax: [phone] Labs and site care at [facility], phone: [phone] Antimicrobial(s) currently prescribed: See Med List Hyperlink in note Firm stop date: 02/11/22 Lab results from 01/21/2022 are viewable in the MCR record--listed as External Labs (received via fax, which has been uploaded to Document Viewer/Media) Interpretation and action: The labs were reviewed. WBC is 3.6 and ANC is 1.42. Alk Phos was not done. [facility]. Orders were sent to [facility] that included alk phos that will be drawn today, 01-28-2022. PAPER MACHINE OPERATOR documented in this encounter Plan of Treatment Upcoming Encounters Date Type Specialty Care Team Description 09/01/2022 Clinical Communication Admitting/Central Scheduling 09/06/2022 Appointment Radiology Alfredo Herrera O.P.A.-C. [address] [place] [address] 09/06/2022 Office Visit Orthopedic Surgery Cyrus Polk M.D. [address] [place] [phone] documented as of this encounter Procedures Procedure Name Priority Date/Time Associated Comments Diagnosis CBC WITH DIFFERENTIAL, B Routine 01/28/2022 3:00 Results for this PM LACE PAPER MACHINE OPERATOR procedure are i n the results section. ALANINE AMINOTRANSFERASE Routine 01/28/2022 3:00 Results for this (ALT), S/P PM LACE PAPER MACHINE OPERATOR procedure are i n the results section. ALKALINE PHOSPHATASE, Routine 01/28/2022 3:00 Res ults for this S/P PM LACE PAPER MACHINE OPERATOR procedure are i n the results section. CREATININE WITH EGFR, Routine 01/28/2022 3:00 Res ults for this S/P PM LACE PAPER MACHINE OPERATOR procedure are i n the [...] Results ALT (Alanine Aminotransferase) (01/28/2022 3:00 PM LACE PAPER MACHINE OPERATOR) athologist Signature EXT ALT 20 4 - 35 MISC REFERRAL LAB Specimen (Source) Anatomical Location Collection Method / Collectio n Time Received Time / Laterality Volume Blood (Blood, Venous) Laly Ward APRN, R.N. LAB BLOOD ADD-ON Performing Organization Address City/State/ZIP Code Phon e Number MISC REFERRAL LAB (ABNORMAL) Alkaline Phosphatase (01/28/2022 3:00 PM LACE PAPER MACHINE OPERATOR) athologist Signature EXT Alkaline 97 (A) 40 - 50 MISC REFERRAL Phosphatase LAB Specimen (Source) Anatomical Location Collection Method / Collectio n Time Received Time / Laterality Volume Blood (Blood, Venous) Laly Ward APRN R.N. LAB BLOOD ADD-ON Performing Organization Address [facility] Code Phon e Number MISC REFERRAL LAB Creatinine with Estimated GFR (01/28/2022 3:00 PM LACE PAPER MACHINE OPERATOR) athologist Signature EXT Creatinine 0.6 0.5 - 1.5 MISC REFERRAL mg/dL LAB Specimen (Source) Anatomical Location Collection Method / Collectio n Time Received Time / Laterality Volume Blood (Blood, Venous) Narrative This result has an attachment that is no t available. Laly Ward APRN, R.N. LAB BLOOD ADD-ON Performing Organization Address [facility] Code Phon e Number MISC REFERRAL LAB (ABNORMAL) CBC with Differential, Blood (01/28/2022 3:00 PM LACE PAPER MACHINE OPERATOR) Analysis Performed At Patho logist Time Signature [...] LAB (ABNORMAL) CBC with Differential, Blood (01/21/2022) [facility] gist Method Time Signature EXT Platelet 298 [...] documented as of this encounter Care Teams Maitre D Relationship Specialty Start Date End Date Elsewhere, Pcp PCP - General Family Medicine 12/25/21 documented as of this encounter
--- OUTSIDE RECORDS SUMMARY | 2022-08-17 06:56 | XMS_ITS | Encounter Summary ---
:1965 Author Organization [facility] Address [address] [place] [address] Care Team Providers Name Role Phone Elsewhere, Pcp Primary Care Provider Unavailable Reason for Visit Reason Comments OPAT Care Coordination Encounter Details Date Type Department Care Team Description 01/22/2022 Clinical Communication Section of Steven Dennis (Care Infectious Diseases E, R.N. Coordination) in [address] [place] [address] [place], [place] [phone] (Work) [phone] Social History Tobacco Use Types Packs/Day Years [...] you attend cheondoism or Patient refused 2021 mandaen services? Do [...] IR. ??Is she able to come to [facility] for IR PICC placement? ??If not, we'll [...] I spoke to Carolynn, the nurse at [facility]. She spoke to their wound care nurse and she would liketo try some different dressings first before they move the PICC to the chest. They cannot place a PICC in the chest in [place], so if needed, the patient would have to come to [facility]. The patientwill be there at 2 pm today. She will call back with the patient so we all can come up with a plan together. Addendum: We missed a call from Carolynn, infusion nurse at [facility]. Her message stated that PICCsite care was performed and the site looks better. The wound care team has a plan and is hoping thatblessinge can keep her current PICC. INSTRUCTOR Telephone Encounter - Tejal Rudolph R.N. - 01/22/2022 4:46 PM EMS INSTRUCTOR I have been unable to reach the patient, but I notified nurse Carolynn at [facility] of Dr. Boris Chaidez's recommendation, that they could try moving the line to the other arm and use a midline but avoid a chest PICC. I faxed the order for midline placement. Nurse Carolynn at [place] questioned whether the midline could be moved to the other (left) arm, because patient wears a sling on that arm. INSTRUCTOR Telephone Encounter - Steven Dennis R.N. [...] She did get a special dressing from [facility] to use, but it doesn't seem to be helping. Dressing was changed at [facility] today and they applied some guaze [...] following references were used: nursing clinical judgement INSTRUCTOR documented in this encounter Plan of Treatment Upcoming Encounters Date Type Specialty Care Team Description 09/01/2022 Clinical Communication Admitting/Central Scheduling 09/06/2022 Appointment Radiology Alfredo Herrera O.P.A.-C. [address] [place] [address] 09/06/2022 Office Visit Orthopedic Surgery Cyrus Polk M.D. [address] [place] [address] documented as of this encounter Visit Diagnoses Diagnosis Direct Infection Of Left Shoulder In Inf ectious And Parasitic Diseases Classified Elsewhere (HCC) - Primary documented in this encounter Additional Health Concerns Assessment Noted Time PHQ-9 Depression Total Score: 16 02/11/2021 12:00 AM C DT documented as of this encounter Care Teams Living Specialist Relationship Specialty Start Date End Date Elsewhere, Pcp PCP - General Family Medicine 12/25/21 documented as of this encounter
--- OUTSIDE RECORDS SUMMARY | 2022-08-17 06:56 | XMS_ITS | Encounter Summary ---
:1965 Author Organization [facility] Address [address] [place] [address] Care Team Providers Name Role Phone Elsewhere, Pcp Primary Care Provider Unavailable Reason for Visit Reason Comments OPAT Normal labs Encounter Details Date Type Department Care Team Description 02/09/2022 Clinical Communication Section of Ruth Eddy (Normal labs) Infectious T, R.N. Diseases in [address] [place] [phone] [place] [address] [place], [place] (Work) [phone] Social History Tobacco Use Types Packs/Day Years [...] you attend evangelical or Patient refused 2021 taoist services? Do [...] Provider: Dennis TA [facility], phone: [phone], fax: [phone] Labs and site care at [facility], phone: [phone] Antimicrobial(s) currently prescribed: See Med List Hyperlink [...] Appointment Radiology Alfredo Herrera O.P.A.-C. [address] [place] [address] 09/06/2022 Office Visit Orthopedic Surgery Cyrus Polk M.D. [address] [place] [address] documented as of this encounter Visit Diagnoses Not on filedocumented in this encounter Additional Health Concerns Assessment Noted Time PHQ-9 Depression Total Score: 16 02/11/2021 12:00 AM C DT documented as of this encounter Care Teams New Car Make Ready Worker Relationship Specialty Start Date End Date Elsewhere, Pcp PCP - General Family Medicine 12/25/21 documented as of this encounter
--- OUTSIDE RECORDS SUMMARY | 2022-08-17 06:56 | XMS_ITS | Encounter Summary ---
:1965 Author Organization [facility] Address [address] [place] [address] Care Team Providers Name Role Phone Elsewhere, Pcp Primary Care Provider Unavailable Reason for Visit Reason Comments OPAT Lab request Encounter Details Date Type Department Care Team Description 01/26/2022 Clinical Communication Section of Ruth Eddy (Lab request) Infectious T, R.N. Diseases in [address] [place] [phone] [place] [address] [place], [place] (Work) [phone] Social History Tobacco Use Types Packs/Day Years [...] you attend sikhism or Patient refused 2021 sabianism services? Do [...] Eddy RBetsy - 01/26/2022 4:[address] [facility], phone: [phone] was called and message left to fax us lab results. Our fax and phone number was given. R CAR DRIVER documented in this encounter Plan of Treatment Upcoming Encounters Date Type Specialty Care Team Description 09/01/2022 Clinical Communication Admitting/Central Scheduling 09/06/2022 Appointment Radiology Alfredo Herrera O.P.A.-C. [address] [place] [address] 09/06/2022 Office Visit Orthopedic Surgery Cyrus Polk M.D. [address] [place] [address] documented as of this encounter Visit Diagnoses Not on filedocumented in this encounter Additional Health Concerns Assessment Noted Time PHQ-9 Depression Total Score: 16 02/11/2021 12:00 AM C DT documented as of this encounter Care Teams Project Coach Relationship Specialty Start Date End Date Elsewhere, Pcp PCP - General Family Medicine 12/25/21 documented as of this encounter
--- OUTSIDE RECORDS SUMMARY | 2022-08-17 06:56 | XMS_ITS | Encounter Summary ---
:1965 Author Organization [facility] Address [address] [place] [address] Care Team Providers Name Role Phone Elsewhere, Pcp Primary Care Provider Unavailable Reason for Visit Reason Comments OPAT Monitoring Complete Encounter Details Date Type Department Care Team Description 02/12/2022 Clinical Communication Section of Kylie Siddiqui (Monitoring Infectious Diseases M, R.N. Complete) in [facility] [phone] [place] (Work) [address] [place] [address] Social History Tobacco Use Types Packs/Day Years [...] you attend sikhism or Patient refused 2021 religion services? Do [...] Complete) Information Discussed Princess, a nurse from [facility], called to see if any labs need [...] Appointment Radiology Alfredo Herrera O.P.A.-C. [address] [place] [address] 09/06/2022 Office Visit Orthopedic Surgery Cyrus Polk M.D. [address] [place] [address] documented as of this encounter Visit Diagnoses Not on filedocumented in this encounter Additional Health Concerns Assessment Noted Time PHQ-9 Depression Total Score: 16 02/11/2021 12:00 AM C DT documented as of this encounter Care Teams Winder Tender Relationship Specialty Start Date End Date Elsewhere, Pcp PCP - General Family Medicine 12/25/21 documented as of this encounter
--- OUTSIDE RECORDS SUMMARY | 2022-08-17 06:56 | XMS_ITS | Encounter Summary ---
:1965 Author Organization [facility] Address 200 [place] [address] Care Team Providers Name Role Phone Elsewhere, Pcp Primary Care Provider Unavailable Reason for Visit Reason Comments OPAT Intervention Encounter Details Date Type Department Care Team Description 01/07/2022 Clinical Communication Section of MATTHEW Tolbert (Intervention) Infectious Diseases [facility] [phone] [facility] (Work) [place] [address] Social History Tobacco Use Types Packs/Day Years [...] you attend mormon or Patient refused 2021 denominational services? Do [...] Dandy Reyes, Pharm.D. - 01/12/2022 9:38 AM NEUROPATHOLOGIST Pertinent labs and antimicrobial regimen as indicated [...] >0.3 mg/dL and absolute value >1.0 mg/dL. OPATHOLOGIST Telephone Encounter - Steven Dennis R.N. - 01/12/2022 9:13 AM CST OPAT NOTE Infusion Provider: Dennis TA [facility], phone: [phone], fax: [phone] Labs and site care at [facility], phone: [phone] Antimicrobial(s) currently prescribed: See Med List Hyperlink in note Firm stop date: 02/11/22 Lab results from 01/07/22 are viewable in the MCR record--listed as External Labs (received via fax, which has been uploaded to Document Viewer/Media) Interpretation and action: Will send to the OPAT pharmacist to review the creatinine, which has decreased >30%. Alk phos wasnot drawn. OPATHOLOGIST documented in this encounter Plan of Treatment Upcoming Encounters Date Type Specialty Care Team Description 09/01/2022 Clinical Communication Admitting/Central Scheduling 09/06/2022 Appointment Radiology Alfredo Herrera O.P.A.-C. [address] [place] [address] 09/06/2022 Office Visit Orthopedic Surgery Cyrus Polk M.D. [address] [place] [address] documented as of this encounter Procedures Procedure Name Priority Date/Time Associated Comments Diagnosis CBC WITH DIFFERENTIAL, B Routine 01/07/2022 2:30 Results for this PM NEUROPATHOLOGIST procedure are i n the results section. ALANINE AMINOTRANSFERASE Routine 01/07/2022 2:30 Results for this (ALT), S/P PM NEUROPATHOLOGIST procedure are i n the results section. CREATININE WITH EGFR, Routine 01/07/2022 2:30 Res ults for this S/P PM NEUROPATHOLOGIST procedure are i n the results section. documented in this encounter Results ALT (Alanine Aminotransferase) (01/07/2022 2:30 PM NEUROPATHOLOGIST) P athologist Signature EXT ALT 10 4 - 35 [facility]) Specimen (Source) Anatomical Location Collection Method / Collectio n Time Received Time / Laterality Volume Blood (Blood, Venous) Laly Ward APRN, R.N. LAB BLOOD ADD-ON Performing Organization Address City/State/ZIP Code Phon e Number [facility], [address] [place] [address] [facility]) Creatinine with Estimated GFR (01/07/2022 2:30 PM NEUROPATHOLOGIST) Analysis Performed At Patho logist Time Signature EXT Creatinine 0.5 0.5 - 1.5 [place] mg/dL [facility], [facility]) Specimen (Source) Anatomical Location Collection Method / Collectio n Time Received Time / Laterality Volume Blood (Blood, Venous) Narrative This result has an attachment that is no t available. Laly Ward APRN, R.N. LAB BLOOD ADD-ON Performing Organization Address City/[facility] e Number [facility], [address] [place] [address] [facility]) (ABNORMAL) CBC with Differential, Blood (01/07/2022 2:30 PM NEUROPATHOLOGIST) Patholo gist Method Time Signature EXT Platelet 349 150 - 450 [facility], [facility]) EXT Eosinophils 0.28 0 - 0.5 [facility] EXT Hemoglobin 8.7 (A) 12 - 15.5 [place]) EXT Absolute 3.19 1.7 - 7 [place] Neutrophils [facility], [facility]) EXT White Blood 5.4 5.0 - [place] Cell (WBC) 10.0 [facility]) Specimen (Source) Anatomical Location Collection Method / Collectio n Time Received Time / Laterality Volume Blood (Blood, Venous) Narrative This result has an attachment that is no t available. Laly Ward APRN, R.N. LAB BLOOD ADD-ON Performing Organization Address City/State/[facility] e Number [facility], [address] [place] [id number] [facility]) documented in this encounter Visit Diagnoses Not on filedocumented in this encounter Additional Health Concerns Assessment Noted Time PHQ-9 Depression Total Score: 16 02/11/2021 12:00 AM C DT documented as of this encounter Care Teams Regional Clinical Director Relationship Specialty Start Date End Date Elsewhere, Pcp PCP - General Family Medicine 12/25/21 documented as of this encounter
--- OUTSIDE RECORDS SUMMARY | 2022-08-17 06:56 | XMS_ITS | Encounter Summary ---
:1965 Author Organization [facility] Address [address] [place] [address] Care Team Providers Name Role Phone Elsewhere, Pcp Primary Care Provider Unavailable Reason for Visit Reason Comments OPAT Normal Labs Encounter Details Date Type Department Care Team Description 01/15/2022 Clinical Communication Section of Madhav Rizo (Normal Labs) Infectious Diseases M, M.P.H., in [address] 200 [place] [address] [phone] Social History Tobacco Use Types Packs/Day Years [...] you attend gnosticist or Patient refused 2021 denominational services? Do [...] Rizo M.P.H., R.N. - 01/15/2022 3:24 PM VOCATIONAL TRAINING DIRECTOR OPAT NOTE Infusion Provider: Dennis TA [facility], phone: [phone], fax: [phone] Labs and site care at [facility], phone: [phone] Antimicrobial(s) currently prescribed: See Med List Hyperlink in note Firm stop date: 02/11/22 Lab results from 01/14/2022 are viewable in the MCR record--listed as External Labs (received via fax, which has been uploaded to Document Viewer/Media) Interpretation and action: The labs were satisfactory and acceptable. No change in plan as per OPAT Practice Guideline. TIONAL TRAINING DIRECTOR documented in this encounter Plan of Treatment Upcoming Encounters Date Type Specialty Care Team Description 09/01/2022 Clinical Communication Admitting/Central Scheduling 09/06/2022 Appointment Radiology Alfredo Herrera O.PEmilioC. [address] [place] [phone] 09/06/2022 Office Visit Orthopedic Surgery Cyrus Polk M.D. [address] [place] [address] documented as of this encounter Procedures Procedure [...] Signature EXT ALT 14 4 - 35 [facility] Specimen (Source) Anatomical Location Collection Method / Collectio n Time Received Time / Laterality Volume Blood (Blood, Venous) Laly Ward APRN, R.N. LAB BLOOD ADD-ON Performing Organization Address City/[facility]/ZIP Code Phon e Number [facility] [address] [place] [address] Creatinine with Estimated GFR (01/14/2022) athologist [facility] EXT Creatinine 0.6 0.5 - 1.5 [place] mg/dL [facility] Specimen (Source) Anatomical Location Collection Method / Collectio n Time Received Time / Laterality Volume Blood (Blood, Venous) Laly Ward APRN, R.N. LAB BLOOD ADD-ON Performing Organization Address City/State/ZIP Code Phon e Number [facility] [address] [place] [address] (ABNORMAL) CBC with Differential, Blood (01/14/2022) athologist Signature EXT Platelet 406 150 - 450 [facility] EXT Hemoglobin 9 (A) 12 - 15.5 [facility] EXT Absolute 3.49 1.7 - 7 [facility] EXT White Blood 5.7 5.0 - 10.0 [place] Cell (WBC) Count [facility] Specimen (Source) Anatomical Location Collection Method / Collectio n Time Received Time / Laterality Volume Blood (Blood, Venous) Narrative This result has an attachment that is no t available. Laly Ward APRN, R.N. LAB BLOOD ADD-ON Performing Organization Address City/State/ZIP Code Phon e Number [facility] [address] [place] [address] documented in this encounter Visit Diagnoses Not on filedocumented in this encounter Additional Health Concerns Assessment Noted Time PHQ-9 Depression Total Score: 16 02/11/2021 12:00 AM C DT documented as of this encounter Care Teams Storekeeper Steward Relationship Specialty Start Date End Date Elsewhere, Pcp PCP - General Family Medicine 12/25/21 documented as of this encounter
--- OUTSIDE RECORDS SUMMARY | 2022-08-17 06:57 | XMS_ITS | Encounter Summary ---
:1965 Author Organization [facility] Address [address] [place] [address] Care Team Providers Name Role Phone Unavailable Primary Care Provider Unavailable Encounter Details Date Type Department Care Team Description 11/25/2021 Clinical Communication Department of Guillermo Patterson, Neurologic Surgery in [place], [place] [address] [place] [address] [address] [place] [address] [phone] Social History Tobacco Use Types Packs/Day Years [...] you attend jainism or Patient refused 2021 hindu services? Do [...] be seen through ED, or local provider/neurology. OR TECHNICAL PROGRAM MANAGER documented in this encounter Plan of Treatment Upcoming Encounters Date Type Specialty Care Team Description 09/01/2022 Clinical Communication Admitting/Central Scheduling 09/06/2022 Appointment Radiology Alfredo Herrera O.P.A.-C. [address] [place] [phone] 09/06/2022 Office Visit Orthopedic Surgery Cyrus Polk M.D. [address] [place] [address] documented as of this encounter Visit Diagnoses Not on filedocumented in this encounter Additional Health Concerns Assessment Noted Time PHQ-9 Depression Total Score: 16 02/11/2021 12:00 AM C DT documented as of this encounter
--- OUTSIDE RECORDS SUMMARY | 2022-08-17 06:57 | XMS_ITS | Encounter Summary ---
:1965 Author Organization [facility] Address [address] [place] [address] Care Team Providers Name Role Phone Unavailable Primary Care Provider Unavailable Encounter Details Date Type Department Care Team Description 10/13/2021 Clinical Communication Preoperative [facility] in [place], [place] [address] [facility] [address] [place] [address] [phone] Social History Tobacco Use Types Packs/Day Years [...] you attend hindu or Patient refused 2021 druze services? Do [...] or the highest technical, or vocational p GoYoDeoram degree you have received? Sex Assigned at Date Recorded Female 03/01/2019 10:12 AM CDT documented as of this encounter Miscellaneous Notes Telephone Encounter - Umu Gan R.RStacy. - 10/13/2021 11:09 AM LEADERSHIP COACH Surgical Risk Score: 3 Risk Identifiers: 4+ ??? TIA ??? PFO ??? Hx of Arterial Thrombosis ??? Asthma ERSHIP COACH documented in this encounter Plan of Treatment Upcoming Encounters Date Type Specialty Care Team Description 09/01/2022 Clinical Communication Admitting/Central Scheduling 09/06/2022 Appointment Radiology Alfredo Herrera O.P.A.-C. [address] [place] [phone] 09/06/2022 Office Visit Orthopedic Surgery Cyrus Polk M.D. [address] [place] [phone] documented as of this encounter Visit Diagnoses Not on filedocumented in this encounter Additional Health Concerns Assessment Noted Time PHQ-9 Depression Total Score: 16 02/11/2021 12:00 AM C DT documented as of this encounter
--- OUTSIDE RECORDS SUMMARY | 2022-08-17 06:57 | XMS_ITS | Encounter Summary ---
:1965 Author Organization [facility] Address [address] [place] [address] Care Team Providers Name Role Phone Unavailable Primary Care Provider Unavailable Reason for Referral MRI/CAT/PET Scan (Routine) - Authorized Specialty Diagnoses / Procedures Referred By Contact Refer red To Contact Radiology Diagnoses Stroke Cerebrovascular Accident Personal History Occlusion Vertebral Artery With lnfarction (HCC) Robert Diehl M.D. [facility] Procedures MR Neck Angiogram without and with IV Contrast [address] [place] [address] Referral ID Status Reason Start Date Expiration Date Visits V isits Requested Authorized [id number] Authorized 12/10/2021 12/10/2022 1 1 RAL APPELLATE CLERK Outpatient (Routine) - Authorized Specialty Diagnoses / Procedures Referred By Contact Refer red To Contact Diagnoses Aneurysm Cerebral Unruptured (HCC) Robert Diehl M.D. [facility] Procedures PM Device interrogation (clinic) [address] [place] [address] Referral ID Status Reason Start Date Expiration Date Visits V isits Requested Authorized [id number] Authorized 12/10/2021 12/10/2022 1 1 RAL APPELLATE CLERK MRI/CAT/PET Scan (Routine) - Authorized Specialty Diagnoses / Procedures Referred By Contact Refer red To Contact Radiology Diagnoses Aneurysm Cerebral Unruptured (HCC) Robert Diehl M.D. [facility] Procedures MR Brain Angiogram without IV Contrast [address] [place] [address] Referral ID Status Reason Start Date Expiration Date Visits V isits Requested Authorized [id number] Authorized 12/10/2021 12/10/2022 1 1 RAL APPELLATE CLERK Reason for Visit Reason Comments Michel Encounter Details Date Type Department Care Team Description 12/10/2021 Clinical Communication Department of Robert Diehl [facility] Neurology in [place], [place] [address] [facility] [address] [place] [phone] [phone] Social History Tobacco Use Types Packs/Day Years [...] you attend muslim or Patient refused 2021 sabianism services? Do [...] 2:58 PM CST Signed and thank you. RAL APPELLATE CLERK documented in this encounter Plan of Treatment Upcoming Encounters Date Type Specialty Care Team Description 09/01/2022 Clinical Communication Admitting/Central Scheduling 09/06/2022 Appointment Radiology Alfredo Herrera O.P.A.-C. [address] [place] [address] 09/06/2022 Office Visit Orthopedic Surgery Cyrus Polk M.D. [address] [place] [address] Scheduled Orders Name Type Priority Associated Diagnoses Order S chedule MR Brain Angiogram Imaging RAD - Routine Aneurysm Cerebral Exp ected: without IV Contrast (most inpatients Unruptured ([facility]) 05/03/2022, and all Expires: outpatients) 03/10/2023 PM Device Procedures Routine Aneurysm Cerebral Expected: interrogation Unruptured ([facility]) 12/29/2021 , (clinic) Expires: 03/10/2023 MR Neck Angiogram Imaging RAD - Routine Stroke Cerebrovascular Expected: without and with IV (most inpatients Accident Personal 05/03/2022 Contrast and all History (Approximate), outpatients) Occlusion Vertebral Expires: Artery With lnfarction 03/10 ([facility]) documented as of this encounter Visit Diagnoses Diagnosis Stroke Cerebrovascular Accident Personal History - Primary Aneurysm Cerebral Unruptured (HCC) Occlusion Vertebral Artery With lnfarcti on (HCC) documented in this encounter Additional Health Concerns Assessment Noted Time PHQ-9 Depression Total Score: 16 02/11/2021 12:00 AM C DT documented as of this encounter
--- OUTSIDE RECORDS SUMMARY | 2022-08-17 06:57 | XMS_ITS | Encounter Summary ---
:1965 Author Organization [facility] Address [address] [place] [address] Care Team Providers Name Role Phone Elsewhere, Pcp Primary Care Provider Unavailable Encounter Details Date Type Department Care Team Description 12/30/2021 Surgery RST SEBAS MORAN OR Cyrus Polk, ARTHROPLASTY RESECTION [address] [facility] [place] [address] 0001 [address] [facility] [phone] [place] [phone] Social History Tobacco Use Types Packs/Day Years [...] you attend amish or Patient refused 2021 buddhism services? Do [...] Comments Blood Pressure 119/74 12/30/2021 12:47 PM PROPERTY MANAGEMENT INTERN Pulse 79 12/30/2021 12:47 PM PROPERTY MANAGEMENT INTERN Temperature 36.8 ??C (98.2 ??F) 12/30/2021 11:22 AM PROPERTY MANAGEMENT INTERN Respiratory Rate 20 12/30/2021 12:47 PM PROPERTY MANAGEMENT INTERN Oxygen Saturation 99% 12/30/2021 12:47 PM PROPERTY MANAGEMENT INTERN Inhaled Oxygen Concentration - - Weight 69.9 kg (154 lb 1.6 12/30/2021 11:22 AM oz) PROPERTY MANAGEMENT INTERN Height 150.5 cm (4' 11.25) 12/30/2021 11:22 AM no shoe s/boots PROPERTY MANAGEMENT INTERN Body Mass Index 30.86 12/30/2021 11:22 AM PROPERTY MANAGEMENT INTERN documented in this encounter Discharge Summaries Dario Carrera M.D. - 01/01/2022 8:50 AM CST DISCHARGE SUMMARY BRIEF OVERVIEW Hospital: [facility] Discharge Provider: Cyrus Polk M.D. Primary [...] RST ROEI OR DISCHARGE DISPOSITION Home-Health Care [facility] [6] ACTIVE ISSUES REQUIRING FOLLOW UP Active [...] were provided to the patient and caregiver(s). ERTY MANAGEMENT INTERN documented in this encounter Discharge Instructions AttachmentsThe following attachments cannot be sent through Care Everywhere. Continuous Nerve-Block Infusion System: Often called a ???pain pump?? (Monegasque) documented in this encounter Medications at Time [...] needed. multivit-min/iron/folic/ Take 1 tablet by 0 [id number] (HAIR, SKIN AND mouth daily. NAILS ADVANCED [...] signs of local anesthetic systemic toxicity, occur. ERTY MANAGEMENT INTERN Fatemeh Pena R.N. - 01/01/2022 5:28 PM [...] when she got up for the day. ERTY MANAGEMENT INTERN Ruth Gonzalez PAna, D.P.T. - 01/01/2022 4:29 [...] mask during therapy session: no Outcome Measures [facility] Inpatient Short Form: -[facility] Basic Mobility (V.2) How much [...] 3-5 steps with a railing?: A Little AM-[facility] Basic Mobility (V.2) Raw Score: 23 -[facility] Basic Mobility (V.2) Standardized Score: 50.88 Interpretation: Clinicians answer the -[facility] Inpatient Short Form based on [...] quad cane since it is not available [facility] by prescription. Barriers to Discharge [...] (min): 23 min Ruth Gonzalez P.T., D.P.T. ERTY MANAGEMENT INTERN Elvira Duncan R.N. - 01/01/2022 3:21 PM [...] educational pamphlet Continuous Nerve-Block Infusion System ( [id number]).?? Discussed at home removal of nervecatheter, signs of toxicity, and provided the 20/06 number to call with questions.?? All questions answered. On-Q infusion will end Wednesday 01/03 at 2230. Informed patient she may wait until Tuesday morning to remove if she is sleeping. Note OnQ will not be empty as running at 6ml/hr with fill of 550cc. She is aware of this. ERTY MANAGEMENT INTERN Thao You L.I.C.S.W., M.S.W. - 01/01/2022 11:23 [...] Selected Services Address Phone Fax Patient Preferred [facility] [address] [facility], [place] [address] [phone] -- Contact: Intake NURSING: - Adjust the [...] will be managed by Outpatient Facility: [facility] Address: [address] [place] [address] Contact: Princess Jimenez will provide IV access [...] continue to follow. Joe Ervin, M.S.WBritton 01/01/2022 ERTY MANAGEMENT INTERN Gucci Salvador M.D. - 01/01/2022 10:45 AM CST DEMOGRAPHIC INFORMATION [facility] Number:[phone] Patient Name: Angie Ashley Mosquera Service: [...] questions answered to patient's satisfaction. Please page [phone] for questions. 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 [id number] Pamela Leonard PharmAlejandrina, R.Ph. - 01/01/2022 10:14 [...] regimen while on post-operative opioids Pamela Crawford PharmAleajndrina, R.Ph. [phone] Jose Guadalupe Washington M.D. - 01/01/2022 8:31 AM CST Infectious Diseases Orthopedic Surgery [facility] Consulting Service Progress Note SUBJECTIVE [...] Date/Time Bacteria / Mandi Culture, Blood #2 [[id number]] Collected: 12/31/21 1604 Lab Status: In process Specimen: Blood, Peripheral Draw Updated: 12/31/21 1651 Narrative: Received Bactec aerobic and Bactec anaerobic bottles Specimen Information: Specimen ID: [id number] Specimen Source: Blood, Peripheral Draw Specimen Comment: Specimen Source Site: Blood Specimen Collection Start Date: 12/31/2021 4:05 PM Specimen Received Date: 12/31/2021 4:51 PM Specimen ID: [id number] Specimen Source: Blood, Peripheral Draw Specimen Comment: Specimen Source Site: Blood Specimen Collection Start Date: 12/31/2021 4:05 PM Specimen Received Date: 12/31/2021 4:51 PM Specimen ID: [id number] Specimen Source: Blood, Peripheral Draw Specimen Comment: Specimen Source Site: Blood Specimen Collection Start Date: 12/31/2021 4:04 PM Specimen Received Date: 12/31/2021 4:51 PM Bacteria / Mandi Culture, Blood #1 [[id number]] Collected: 12/31/21 1552 Lab Status: In process Specimen: Blood, Peripheral Draw Updated: 12/31/21 1651 Narrative: Received Bactec aerobic and Bactec anaerobic bottles Specimen Information: Specimen ID: [id number] Specimen Source: Blood, Peripheral Draw Specimen Comment: Specimen Source Site: Blood Specimen Collection Start Date: 12/31/2021 3:52 PM Specimen Received Date: 12/31/2021 4:50 PM Specimen ID: [id number] Specimen Source: Blood, Peripheral Draw Specimen Comment: Specimen Source Site: Blood Specimen Collection Start Date: 12/31/2021 3:53 PM Specimen Received Date: 12/31/2021 4:50 PM Specimen ID: [id number] Specimen Source: Blood, Peripheral Draw Specimen Comment: Specimen Source Site: Blood Specimen Collection Start Date: 12/31/2021 3:53 PM Specimen Received Date: 12/31/2021 4:50 PM Bacteria Cult, Aerobe / Anaerobe+Susc [[id number]] Collected: 12/30/21 1411 Lab Status: Preliminary result Specimen: Shoulder, Left Updated: 12/31/21 1601 Bacteria Cult, Aerobe/Anaerobe+Susc No growth to date. Narrative: Bacterial Culture: Placed in Bactec aerobic and Bactec anaerobic bottles Bacteria Cult, Aerobe / Anaerobe+Susc [[id number]] Collected: 12/30/21 1405 Lab Status: Preliminary result Specimen: Synovial Fluid, Left Shoulder Updated: 12/31/21 1601 Bacteria Cult, Aerobe/Anaerobe+Susc No growth to date. Narrative: Bacterial Culture: Placed in Bactec aerobic and Bactec anaerobic bottles Bacteria Cult, Aerobe / Anaerobe+Susc [[id number]] Collected: 12/30/21 1404 Lab Status: Preliminary result Specimen: Shoulder, Left Updated: 12/31/21 1601 Bacteria Cult, Aerobe/Anaerobe+Susc No growth to date. Narrative: Bacterial Culture: Placed in Bactec aerobic and Bactec anaerobic bottles Bacteria Cult, Aerobe / Anaerobe+Susc [[id number]] Collected: 12/30/21 1403 Lab Status: Preliminary result Specimen: Shoulder, Left Updated: 12/31/21 1601 Bacteria Cult, Aerobe/Anaerobe+Susc No growth to date. Narrative: Bacterial Culture: Placed in Bactec aerobic and Bactec anaerobic bottles Bacteria Cult, Aerobe / Anaerobe+Susc [[id number]] Collected: 12/30/21 1403 Lab Status: Preliminary result Specimen: Shoulder, Left Updated: 12/31/21 1601 Bacteria Cult, Aerobe/Anaerobe+Susc No growth to date. Narrative: Bacterial Culture: Placed in Bactec aerobic and Bactec anaerobic bottles SARS Coronavirus 2, Molecular Detection, PCR, Varies Asymptomatic [[id number]] Collected: 12/29/21 1111 Lab Status: Final result [...] ----ADDITIONAL INFORMATION---- This RT-PCR test using the Sun LifeLight SARS-CoV-2 Assay ( [employer]) performed on the Sun LifeLight Two Module System has received Emergency Use Authorization (EUA) by the U.S. Food and Drug Administration, and is modified from the nurse aide's instructions with a bridging study. Performance characteristics were verified by [facility] in a manner consistent with CLIA requirements. Visit the CDC website: https://www.cdc.gov/coronavirus/ for the most recent guidelines on Coronavirus testing. Fact Sheet for Healthcare Providers: https://www.fda.gov/media/600980/download Fact Sheet for Patients: https://www.fda.gov/media/414054/download ASSESSMENT / PLAN 56-year-old female with a [...] is consistent with aspiration results from original [facility] evaluation which is likely in store marketing representative of the culprit organism causing her [...] of Infectious Diseases OPAT monitoring program at [phone] after dismissal. Primary service to follow labs while patient is hospitalized. [facility] pharmacist to adjust dosing after dismissal 4. [...] off at this time. Please page Ortho [email or web address] service pager at [phone] with any questions. ?? Jos eGuadalupe Nixon M.D. Elvira Scherer R.N. - 01/01/2022 [...] Overall Comments Patient to dismiss with OnQ. ERTY MANAGEMENT INTERN Dario Carrera M.D. - 01/01/2022 7:00 AM [...] - Date/Time Bacteria Cult, Aerobe / Anaerobe+Susc [[id number]] Collected: 12/30/21 1411 Lab Status: In process Specimen: Shoulder, Left Updated: 12/30/21 1540 Narrative: Bacterial Culture: Placed in Bactec aerobic and Bactec anaerobic bottles Bacteria Cult, Aerobe / Anaerobe+Susc [[id number]] Collected: 12/30/21 1405 Lab Status: In process Specimen: Synovial Fluid, Left Shoulder Updated: 12/30/21 1519 Narrative: Bacterial Culture: Placed in Bactec aerobic and Bactec anaerobic bottles Bacteria Cult, Aerobe / Anaerobe+Susc [[id number]] Collected: 12/30/21 1404 Lab Status: In process Specimen: Shoulder, Left Updated: 12/30/21 1536 Narrative: Bacterial Culture: Placed in Bactec aerobic and Bactec anaerobic bottles Bacteria Cult, Aerobe / Anaerobe+Susc [[id number]] Collected: 12/30/21 1403 Lab Status: In process Specimen: Shoulder, Left Updated: 12/30/21 1533 Narrative: Bacterial Culture: Placed in Bactec aerobic and Bactec anaerobic bottles Bacteria Cult, Aerobe / Anaerobe+Susc [[id number]] Collected: 12/30/21 1403 Lab Status: In process Specimen: Shoulder, Left Updated: 12/30/21 1538 Narrative: Bacterial Culture: Placed in Bactec aerobic and Bactec anaerobic bottles SARS Coronavirus 2, Molecular Detection, PCR, Varies Asymptomatic [[id number]] Collected: 12/29/21 1111 Lab Status: Final result [...] ----ADDITIONAL INFORMATION---- This RT-PCR test using the Sun LifeLight SARS-CoV-2 Assay ( [employer].) performed on the Sun LifeLight Two Module System has received Emergency Use Authorization (EUA) by the U.S. Food and Drug Administration, and is modified from the nurse aide's instructions with a bridging study. Performance characteristics were verified by [facility] in a manner consistent with CLIA requirements. Visit the CDC website: https://www.cdc.gov/coronavirus/ for the most recent guidelines on Coronavirus testing. Fact Sheet for Healthcare Providers: https://www.fda.gov/media/093706/download Fact Sheet for Patients: https://www.fda.gov/media/295143/download ASSESSMENT / PLAN IMPRESSION/REPORT/PLAN #1 Status post [...] 6 am, please page Arthur Smallwood at [facility] [phone] ERTY MANAGEMENT INTERN Trey Rdz R.N. - 12/31/2021 7:34 AM [...] with onq pump later today or tomorrow ERTY MANAGEMENT INTERN Jey Matos D.O. - 12/31/2021 6:53 AM [...] - Date/Time Bacteria Cult, Aerobe / Anaerobe+Susc [[id number]] Collected: 12/30/21 1411 Lab Status: In process Specimen: Shoulder, Left Updated: 12/30/21 1540 Narrative: Bacterial Culture: Placed in Bactec aerobic and Bactec anaerobic bottles Bacteria Cult, Aerobe / Anaerobe+Susc [[id number]] Collected: 12/30/21 1405 Lab Status: In process Specimen: Synovial Fluid, Left Shoulder Updated: 12/30/21 1519 Narrative: Bacterial Culture: Placed in Bactec aerobic and Bactec anaerobic bottles Bacteria Cult, Aerobe / Anaerobe+Susc [[id number]] Collected: 12/30/21 1404 Lab Status: In process Specimen: Shoulder, Left Updated: 12/30/21 1536 Narrative: Bacterial Culture: Placed in Bactec aerobic and Bactec anaerobic bottles Bacteria Cult, Aerobe / Anaerobe+Susc [[id number]] Collected: 12/30/21 1403 Lab Status: In process Specimen: Shoulder, Left Updated: 12/30/21 1533 Narrative: Bacterial Culture: Placed in Bactec aerobic and Bactec anaerobic bottles Bacteria Cult, Aerobe / Anaerobe+Susc [[id number]] Collected: 12/30/21 1403 Lab Status: In process Specimen: Shoulder, Left Updated: 12/30/21 1538 Narrative: Bacterial Culture: Placed in Bactec aerobic and Bactec anaerobic bottles SARS Coronavirus 2, Molecular Detection, PCR, Varies Asymptomatic [[id number]] Collected: 12/29/21 1111 Lab Status: Final result [...] ----ADDITIONAL INFORMATION---- This RT-PCR test using the Sun LifeLight SARS-CoV-2 Assay ( [employer]) performed on the Sun LifeLight Two Module System has received Emergency Use Authorization (EUA) by the U.S. Food and Drug Administration, and is modified from the nurse aide's instructions with a bridging study. Performance characteristics were verified by [facility] in a manner consistent with CLIA requirements. Visit the CDC website: https://www.cdc.gov/coronavirus/ for the most recent guidelines on Coronavirus testing. Fact Sheet for Healthcare Providers: https://www.fda.gov/media/633798/download Fact Sheet for Patients: https://www.fda.gov/media/716075/download ASSESSMENT / PLAN IMPRESSION/REPORT/PLAN #1 Status post [...] Jey Matos, DO Shoulder & Elbow Fellow [facility] Orthopaedic Surgery For any questions or concerns from 6 am until 6 pm, please page Jam service For urgent matters from 6 pm until 6 am, please page Ortho House at [facility] [phone] Trey Phan R.N. - 12/30/2021 4:39 PM [...] She is registered with the state of [place] for medical cannabis and she gets her [...] Take 150 mg by mouth every morning. cubwfkvwaa-bqcbywfxinqvx-avfc (ESGIC) 50-325-40 mg per tablet Past Week [...] by mouth 2 (two) times a day. ERTY MANAGEMENT INTERN documented in this encounter Procedure Notes Soraida [...] to release the adhesive from the skin. http://Share Your Brain/products/secureportiv ERTY MANAGEMENT INTERN documented in this encounter Consult Notes Ruth [...] Right Lives With: Alone Receives Help From: cafe site attendant, Family, Friend(s) ADL Assistance: Required assistance ADL Assistance Comments: Gets help from SECTION 8 PROPERTY MANAGER for her bath/shower and for her meals IADL/Homemaking Assistance: Required assistance IADL/Homemaking Assistance Comments: Gets help for housecleaning Driving: Independent Occupational Role: On disability Prior Mobility/Functional Transfers Level of [place]: Modified independent Gait Devices/Wheelchair Used: Cane Gait [...] session with call light in reach and SECTION 8 PROPERTY MANAGER present, all needs metand questions answered. Contact monitoring: PPE used during therapy: Therapist was wearing the following PPE throughout entire session: surgicalmask and eye protection Patient was wearing a mask during therapy session: yes, when out of room Outcome Measures -[facility] Inpatient Short Form: AM-[facility] Basic Mobility (V.2) How much [...] 3-5 steps with a railing?: A Lot -[facility] Basic Mobility (V.2) Raw Score: 17 -[facility] Basic Mobility (V.2) Standardized Score: 39.67 Interpretation: Clinicians answer the -[facility] Inpatient Short Form based on [...] (min): 36 min Ruth Gonzalez P.T., D.P.T. ERTY MANAGEMENT INTERN Thao You L.I.C.S.Erma, M.S.W. - 12/31/2021 2:04 PM CSTAssociated Order(s): IP CONSULT TO CARE MANAGEMENT; IP CONSULT TO CARE MANAGEMENT; IP CONSULT TO CARE MANAGEMENT Psychosocial Assessment SUBJECTIVE DEMOGRAPHIC INFORMATION Person(s) present during interview: Patient Primary care clinic and provider: [facility] Primary Language: Monegasque Legal Information: Legal decision maker for self [...] Household Status: Patient resides alone in [place], [place]. She lives in a two bedroom apartment. Patient has four adultchildren two of whom live in [place]. Patient son Rafal lives next door to patient. Support Systems: Family members, Friends/neighbors. We have not received permission to contact them. Primary caregiver: Self Accompanied by/Relationship: None Support System: Family members, Friends/neighbors Spirituality / Confucianist / Culture: , None History: No Education: High school Employment: Disabled Psychosocial Risk Factors impacting the patient: Resides alone, mental health issues Abuse, Neglect, Maltreatment, Trauma: Current: None reported. Past: None reported. ENVIRONMENTAL SUPPORTS Current Living Situation: Private residence Patient's Home Environment: Resides in a two bedroom apartment on the [address] [facility] Care Facility Name (if applicable): NA [...] Behavior: Oriented Communication: Reads, writes and speaks Monegasque It is anticipated that the patient will need assistance with .Dressing,bathing, meal prep, housekeeping, shopping ASSISTIVE DEVICES Patient has the following equipment: Eyeglasses, Dentures upper, Dentures lower, cane, walker Patient anticipates potentially needing the following additional equipment: None Transportation needs: Independent to drive, support from family and friends SERVICES REQUESTED Infusion therapy [employer] MODEL [employer]KER Formal and Informal Resources: Patient receives home health aid services three times per week and custodial visit one time every two weeks through [facility]. FINANCES/INSURANCE Primary insurance: MEDICARE A AND B Secondary insurance: MEDICA ADVANCE DIRECTIVES Advance Directive: Patient does not have advance directive, does not want information DISCHARGE PLANNING Patient is planning on returning home upon her discharge. She currently receives home health aid services and custodial through [facility]. Patient also has support from [...] good support group consisting of family, friends [facility]. INTERVENTIONS ?? Psychosocial assessment ?? Rapport building ?? Education on coping with chronic pain. PLAN ?? Social work will continue to follow for discharge planning and support. ?? Social work did speak with Pat at [facility] to confirm home health services. ?? Social work will work on infusion therapy referrals as well as home health/outpatient picc site care and labs. Anticipated barriers to the transition of care/plan: None Joe Ervin, M.S.W. 12/31/2021 ERTY MANAGEMENT INTERN Jose Guadalupe Nixon M.D. - 12/31/2021 7:31 AM CSTAssociated Order(s): IP CONSULT TO INFECTIOUS DISEASES Infectious Diseases Orthopedic Surgery [facility] Consulting Service Consult Note SUBJECTIVE [...] resistance on OSH AST. She presented to [facility] (unclear if on antibiotics) for further evaluation given persistent L shoulder pain 08/2021 prompting aspiration (09/25/21) which revealed elevated TNC (66759) with 81% PMNs with cultures positive for1 [...] debridement. The patient was subsequently admitted to [facility] for further management. Intraoperative cultures and synovial [...] - Date/Time Bacteria Cult, Aerobe / Anaerobe+Susc [[id number]] Collected: 12/30/21 1411 Lab Status: In process Specimen: Shoulder, Left Updated: 12/30/21 1540 Narrative: Bacterial Culture: Placed in Bactec aerobic and Bactec anaerobic bottles Bacteria Cult, Aerobe / Anaerobe+Susc [[id number]] Collected: 12/30/21 1405 Lab Status: In process Specimen: Synovial Fluid, Left Shoulder Updated: 12/30/21 1519 Narrative: Bacterial Culture: Placed in Bactec aerobic and Bactec anaerobic bottles Bacteria Cult, Aerobe / Anaerobe+Susc [[id number]] Collected: 12/30/21 1404 Lab Status: In process Specimen: Shoulder, Left Updated: 12/30/21 1536 Narrative: Bacterial Culture: Placed in Bactec aerobic and Bactec anaerobic bottles Bacteria Cult, Aerobe / Anaerobe+Susc [[id number]] Collected: 12/30/21 1403 Lab Status: In process Specimen: Shoulder, Left Updated: 12/30/21 1533 Narrative: Bacterial Culture: Placed in Bactec aerobic and Bactec anaerobic bottles Bacteria Cult, Aerobe / Anaerobe+Susc [[id number]] Collected: 12/30/21 1403 Lab Status: In process Specimen: Shoulder, Left Updated: 12/30/21 1538 Narrative: Bacterial Culture: Placed in Bactec aerobic and Bactec anaerobic bottles SARS Coronavirus 2, Molecular Detection, PCR, Varies Asymptomatic [[id number]] Collected: 12/29/21 1111 Lab Status: Final result [...] ----ADDITIONAL INFORMATION---- This RT-PCR test using the Sun LifeLight SARS-CoV-2 Assay ( [employer]) performed on the Sun LifeLight Two Module System has received Emergency Use Authorization (EUA) by the U.S. Food and Drug Administration, and is modified from the nurse aide's instructions with a bridging study. Performance characteristics were verified by [facility] in a manner consistent with CLIA requirements. Visit the CDC website: https://www.cdc.gov/coronavirus/ for the most recent guidelines on Coronavirus testing. Fact Sheet for Healthcare Providers: https://www.fda.gov/media/669919/download Fact Sheet for Patients: https://www.fda.gov/media/205444/download ASSESSMENT / PLAN 56-year-old female with a [...] is consistent with aspiration results from original [facility] evaluation which is likely in store marketing representative of the culprit organism causing her [...] will follow along closely. Please page the [facility] service pager at [phone] with questions. Thank you for the consultation. Jose Guadalupe Nixon M.D. ERTY MANAGEMENT INTERN Associated attestation - Gucci Salvador M.D. - 12/31/2021 6:07 PM PROPERTY MANAGEMENT INTERN DEMOGRAPHIC INFORMATION Clinic Number:[phone] Patient Name: Angie [...] prescriptions, and Oxycodone. Oxycodone filled here at [facility] pharmacy. Patient going home with an interscalene block OnQ pump. Transportation provided by her son. ERTY MANAGEMENT INTERN Fanny Sifuentes R.N. - 12/31/2021 11:00 PM [...] Nasal mucous membranes remain intact Outcome: Progressing ERTY MANAGEMENT INTERN Ezequiel Hernandez R.N. - 12/30/2021 10:27 PM [...] staff assistance to bathroom. Navin Hernandez R.N. ERTY MANAGEMENT INTERN documented in this encounter OR Notes Op Note - Cyrus Polk M.D. - 12/30/2021 2:50 PM CST STAFF: Cyrus Polk M.D. RESIDENT: Dario Carrera M.D. PRE-OPERATIVE DIAGNOSIS Left infected reverse arthroplasty. POST-OPERATIVE DIAGNOSIS Left infected reverse arthroplasty. A hr assistant was necessary for one or more [...] Cyrus Polk M.D. CT CT Job ID: [id number] ERTY MANAGEMENT INTERN documented in this encounter Miscellaneous Notes Hospital [...] and pain is controlled on oral medications. ERTY MANAGEMENT INTERN documented in this encounter Plan of Treatment Upcoming Encounters Date Type Specialty Care Team Description 09/01/2022 Clinical Communication Admitting/Central Scheduling 09/06/2022 Appointment Radiology Alfredo Herrera O.P.A.-C. [address] [place] [address] 09/06/2022 Office Visit Orthopedic Surgery Cyrus Polk M.D. [address] [place] [address] Scheduled Referrals Name Type Priority Associated Diagnoses Order [facility] Outpatient Referral Routine Direct Infection Of Ordered: Health Referral Left Shoulder In 01/01/20 22 Infectious And Parasitic Diseases Classified Elsewhere (HCC) documented as of this encounter Procedures Procedure Name Priority Date/Time Associated Comments Diagnosis PLACE PERIPHERALLY Routine 01/01/2022 12:11 Resul ts for this INSERTED CENTRAL PM PROPERTY MANAGEMENT INTERN procedure a re in CATHETER (PICC) the results section. REMOTE OXIMETRY Routine 12/31/2021 5:23 MONITORING CONT. PM PROPERTY MANAGEMENT INTERN REMOTE OXIMETRY Routine 12/31/2021 5:23 MONITORING CONT. PM PROPERTY MANAGEMENT INTERN BACTERIA / MANDI Routine 12/31/2021 4:04 Result s for this CULTURE, BLOOD PM PROPERTY MANAGEMENT INTERN procedure are in the results section. BACTERIA / MANDI Routine 12/31/2021 3:52 Result s for this CULTURE, BLOOD PM PROPERTY MANAGEMENT INTERN procedure are in the results section. ADULT OXYGEN THERAPY Routine 12/31/2021 8:01 AM PROPERTY MANAGEMENT INTERN CBC WITH Routine 12/31/2021 4:25 Results for this DIFFERENTIAL, B AM PROPERTY MANAGEMENT INTERN procedure ar e in the results section. BASIC METABOLIC Routine 12/31/2021 4:25 Results f or this PANEL, S/P AM PROPERTY MANAGEMENT INTERN procedure are i n the results section. ADULT OXYGEN THERAPY Routine 12/30/2021 8:01 PM PROPERTY MANAGEMENT INTERN ADULT OXYGEN THERAPY Routine 12/30/2021 5:12 PM PROPERTY MANAGEMENT INTERN ADULT OXYGEN THERAPY Routine 12/30/2021 5:12 PM PROPERTY MANAGEMENT INTERN ADULT OXYGEN THERAPY Routine 12/30/2021 3:46 PM PROPERTY MANAGEMENT INTERN ADULT OXYGEN THERAPY Routine 12/30/2021 3:46 PM PROPERTY MANAGEMENT INTERN DX SHOULDER LEFT 1 RAD - Timed (for 12/30/2021 3:41 Re sults for this VIEW specific PM PROPERTY MANAGEMENT INTERN procedure are i n dates/times) the results section. SURGICAL PATHOLOGY, Routine 12/30/2021 2:15 Shoulder Joint Res ults for this [facility] LAB PM PROPERTY MANAGEMENT INTERN Disorder Left procedure are in the results section. BACTERIA CULT, Routine 12/30/2021 2:11 Results fo r this AEROBE/ANAEROBE+SUSC PM PROPERTY MANAGEMENT INTERN procedu re are in the results section. BACTERIA CULT, Routine 12/30/2021 2:05 Results fo r this AEROBE/ANAEROBE+SUSC PM PROPERTY MANAGEMENT INTERN procedu re are in the results section. BACTERIA CULT, Routine 12/30/2021 2:04 Results fo r this AEROBE/ANAEROBE+SUSC PM PROPERTY MANAGEMENT INTERN procedu re are in the results section. BACTERIA CULT, Routine 12/30/2021 2:03 Results fo r this AEROBE/ANAEROBE+SUSC PM PROPERTY MANAGEMENT INTERN procedu re are in the results section. BACTERIA CULT, Routine 12/30/2021 2:03 Results fo r this AEROBE/ANAEROBE+SUSC PM PROPERTY MANAGEMENT INTERN procedu re are in the results section. ARTHROPLASTY 12/30/2021 12:34 Shoulder Joint RESECTION SHOULDER PM PROPERTY MANAGEMENT INTERN Disorder Left documented in this encounter Results Place peripherally inserted central catheter (PICC) (01/01/2022 12:11 PM PROPERTY MANAGEMENT INTERN) Narrative MMODAL - 01/01/2022 12:11 PM PROPERTY MANAGEMENT INTERN Soraida Dick R.N. ? 01/01/2022 12:13 PM [...] to release the adhesive from the skin. [email or web address] Dario Carrera M.D. PROCEDURE/MINOR SURGICAL ORD ERABLES Performing Organization Address City/State/ZIP Code Phon e Number MMODAL MMODAL NA Bacteria / Mandi Culture, Blood #2 (12/31/2021 4:04 PM PROPERTY MANAGEMENT INTERN) [facility] Method Time Signature Bacteria/Valerie No growth 01/05/2022 DTL da Culture, after 5 5:02 PM PROPERTY MANAGEMENT INTERN Blood days of incubation. Specimen (Source) Anatomical Collection Method Collection Time Re ceived Time Location / / Volume Laterality Blood (Blood, 12/31/2021 4:04 12/31/2021 4:51 Peripheral Draw) PM PROPERTY MANAGEMENT INTERN PM PROPERTY MANAGEMENT INTERN Comment: Specimen Source Site: Blood Narrative [facility] - 01/05/2022 5:02 PM PROPERTY MANAGEMENT INTERN Received Bactec aerobic and Bactec anaer obic bottles Dario Carrera M.D. LAB MICROBIOLOGY - GENERAL O MARY Performing Organization Address City/[facility] Phon e Number [facility] - [address] [place], [place] [address] [place] [id number] [place] [address] Bacteria / Mandi Culture, Blood #1 (12/31/2021 3:52 PM PROPERTY MANAGEMENT INTERN) [facility] Method Inez Signature Bacteria/Valerie No growth 01/05/2022 DTL da Culture, after 5 5:02 PM PROPERTY MANAGEMENT INTERN Blood days of incubation. Specimen (Source) Anatomical Collection Method Collection Time Re ceived Time Location / / Volume Laterality Blood (Blood, 12/31/2021 3:52 12/31/2021 4:50 Peripheral Draw) PM PROPERTY MANAGEMENT INTERN PM PROPERTY MANAGEMENT INTERN Comment: Specimen Source Site: Blood Narrative [facility] - 01/05/2022 5:02 PM PROPERTY MANAGEMENT INTERN Received Bactec aerobic and Bactec anaer obic bottles Dario Carrera M.D. LAB MICROBIOLOGY - GENERAL O MARY Performing Organization Address City/[facility]/ZIP Code Phon e Number [facility] - [address] [place], [place] [address] [place] [address] (ABNORMAL) CBC with Differential, Blood (12/31/2021 4:25 AM PROPERTY MANAGEMENT INTERN) [facility] Method Time Signature Hemoglobin 8.9 (L) 11.6 - 12/31/2021 DTL 15.0 g/dL 5:15 AM PROPERTY MANAGEMENT INTERN Hematocrit 27.3 (L) 35.5 - 12/31/2021 DTL 44.9 % 5:15 AM PROPERTY MANAGEMENT INTERN Erythrocytes 3.26 (L) 3.92 - 12/31/2021 DTL 5.13 5:15 AM PROPERTY MANAGEMENT INTERN x10(12)/L MCV 83.7 78.2 - 12/31/2021 DTL 97.9 fL 5:15 AM PROPERTY MANAGEMENT INTERN RBC Distrib Width 19.6 (H) 12.2 - 12/31/2021 DTL 16.1 % 5:15 AM PROPERTY MANAGEMENT INTERN Platelet Count 274 157 - 371 12/31/2021 DTL x10(9)/L 5:15 AM PROPERTY MANAGEMENT INTERN Leukocytes 6.6 3.4 - 9.6 12/31/2021 DTL x10(9)/L 5:15 AM PROPERTY MANAGEMENT INTERN Neutrophils 4.91 1.56 - 12/31/2021 DTL 6.45 5:15 AM PROPERTY MANAGEMENT INTERN x10(9)/L Lymphocytes 1.10 0.95 - 12/31/2021 DTL 3.07 5:15 AM PROPERTY MANAGEMENT INTERN x10(9)/L Monocytes 0.61 0.26 - 12/31/2021 DTL 0.81 5:15 AM PROPERTY MANAGEMENT INTERN x10(9)/L Eosinophils <0.03 0.03 - 12/31/2021 DTL 0.48 5:15 AM PROPERTY MANAGEMENT INTERN x10(9)/L Basophils <0.03 0.01 - 12/31/2021 DTL 0.08 5:15 AM PROPERTY MANAGEMENT INTERN x10(9)/L Specimen Anatomical Collection Method Collection Time Receive d Time (Source) Location / / Volume Laterality Blood (Blood, 12/31/2021 4:25 AM 12/31/19 22 5:04 Venous) PROPERTY MANAGEMENT INTERN AM PROPERTY MANAGEMENT INTERN Dario Carrera M.D. LAB BLOOD ADD-ON Performing Organization Address City/State/ZIP Code Phon e Number [facility] - [address] [place], [place] [address] [facility] [place] [address] [address] [facility] (ABNORMAL) Basic Metabolic Panel (12/31/2021 4:25 AM PROPERTY MANAGEMENT INTERN) P athologist Signature Potassium, S 4.4 3.6 - 5.2 12/31/2021 DTL mmol/L 5:35 AM PROPERTY MANAGEMENT INTERN Sodium, S 134 (L) 135 - 145 12/31/2021 DTL mmol/L 5:35 AM PROPERTY MANAGEMENT INTERN Chloride, S 103 98 - 107 12/31/2021 DTL mmol/L 5:35 AM PROPERTY MANAGEMENT INTERN Bicarbonate, S 22 22 - 29 12/31/2021 DTL mmol/L 5:35 AM PROPERTY MANAGEMENT INTERN Anion Gap 9 7 - 15 12/31/2021 DTL 5:35 AM PROPERTY MANAGEMENT INTERN BUN (Blood Urea 21 6 - 21 12/31/2021 DTL Nitrogen), S mg/dL 5:35 AM PROPERTY MANAGEMENT INTERN Creatinine 0.74 0.59 - 12/31/2021 DTL 1.04 mg/dL 5:35 AM PROPERTY MANAGEMENT INTERN eGFR-Non 90 >=60 12/31/2021 DTL Black/ mL/min/BSA 5:35 AM PROPERTY MANAGEMENT INTERN [place] Comment: ----ADDITIONAL INFORMATION---- Estimated GFR calculated using the 2009 CKD_EPI creatinine equation. eGFR-Black/ >90 >=60 mL/min/BSA 2021 5:35 AM PROPERTY MANAGEMENT INTERN DTL Comment: ----ADDITIONAL INFORMATION---- Estimated GFR calculated using the 2009 CKD_EPI creatinine equation. Calcium, Total, S 8.7 8.6 - 10.0 mg/dL 12/31/2021 5:35 AM PROPERTY MANAGEMENT INTERN DTL Glucose, S 138 70 - 140 mg/dL 12/31/2021 5:35 AM PROPERTY MANAGEMENT INTERN D TL Specimen Anatomical Collection Method Collection Time Receive d Time (Source) Location / / Volume Laterality Blood (Blood, 12/31/2021 4:25 AM 12/31/19 5:18 Venous) PROPERTY MANAGEMENT INTERN AM PROPERTY MANAGEMENT INTERN Dario Carrera M.D. LAB BLOOD ADD-ON Performing Organization Address City/State/ZIP Code Phon e Number [facility] - [address] [place], [place] [address] [facility] [place] [address] [address] DX Shoulder Left 1 View (12/30/2021 3:41 PM PROPERTY MANAGEMENT INTERN) Anatomical Region Laterality Modality Upper Extremity, Shoulder, Musculoskeletal RST LOS, Left Computed Radiography Musculoskeletal ARZ LOS, Muskuloskeletal FLA LOS Specimen (Source) Anatomical Collection Method Collection Time Re ceived Time Location / / Volume Laterality 12/30/2021 3:54 PM PROPERTY MANAGEMENT INTERN Impressions 12/30/2021 3:59 PM PROPERTY MANAGEMENT INTERN Postoperative changes of a left shoulder arthroplasty resection and placement of an antibiotic spacer. Negat lalo for postoperative purposes. Narrative 12/30/2021 3:59 PM PROPERTY MANAGEMENT INTERN EXAM: ??DX SHOULDER LEFT 1 VIEW Procedure [...] Surgical Pathology, Frozen Lab (12/30/2021 2:15 PM PROPERTY MANAGEMENT INTERN) Component Value Ref Test Analysis Performed At [facility] Method Time Signature 01/01/2022 METH 8:22 AM PROPERTY MANAGEMENT INTERN Participated in Kelly Howard 01/01/2022 M[facility] the D.O.-Pathology 8:22 AM PROPERTY MANAGEMENT INTERN Interpretation Resident Report Solomon Marcum M.D. 01/01/2022 M[facility] electronically 8:22 AM PROPERTY MANAGEMENT INTERN signed by I verify that I have examined all relevant slides/materials for the specimen(s) and rendered or confirmed the diagnosis. Frozen A. ??Synovium, left shoulder, excision: ??Synovial tissue 01/01/2022 M[facility] Intraoperative with 8:22 AM PROPERTY MANAGEMENT INTERN Report acute inflammation (>5 neutrophils/high power field). Signed by Solomon Marcum M.D. 12/31/2021 8:17 AM Gross Description A. ??Received fresh labeled left shoulder is a 1.4 x 0.9 x 01/01/2022 METH 0.4 cm aggregate of red and campbell fibrous tissue, which is 8:22 AM PROPERTY MANAGEMENT INTERN soft. ??All submitted for frozen and permanent sections. Grossed by Nikki Gallardo. Block Summary A Left shoulder 01/01/2022 M[facility] A1 Left shoulder-frozen 8:22 AM PROPERTY MANAGEMENT INTERN Interpretation FINAL DIAGNOSIS 01/01/2022 METH 8:22 AM PROPERTY MANAGEMENT INTERN A. ??Synovium, left shoulder, excision: ??Synovial tissue with acute inflammation (>5 neutrophils/high power field). Specimen (Source) Anatomical Collection Method Collection Time Re ceived Time Location / / Volume Laterality Tissue (Shoulder, 12/30/2021 2:15 PM Left) PROPERTY MANAGEMENT INTERN Narrative This result has an attachment that is no t available. Cyrus Polk M.D. LAB SURG PATH ORDERABLES Performing Organization Address [facility] Phon e Number [facility] - [address] [place], [place] [address] [facility] [place] [address] [address] [facility] Bacteria Cult, Aerobe / Anaerobe+Susc (12/30/2021 2:11 PM PROPERTY MANAGEMENT INTERN) [facility] Managed Systems Method Time Signature Bacteria Cult, No growth 01/13/2022 DTL Aerobe/Anaerob after 14 4:02 PM PROPERTY MANAGEMENT INTERN e+Susc days of incubation. Specimen Anatomical Collection Method Collection Time Receive d Time (Source) Location / / Volume Laterality Shoulder, Left 12/30/2021 2:11 PM 022 3:38 PROPERTY MANAGEMENT INTERN PM PROPERTY MANAGEMENT INTERN Comment: Specimen Source Site: Tissue #4 Narrative [facility] - 01/13/2022 4:02 PM PROPERTY MANAGEMENT INTERN Bacterial Culture: Placed in Bactec aero bic and Bactec anaerobic bottles Cyrus Polk M.D. LAB MICROBIOLOGY - GENERAL O RDERABLES Performing Organization Address City/[facility] Code Phon e Number [facility] - [address] [place], [place] [address] [facility] [place] [address] [facility] [address] [facility] (ABNORMAL) Bacteria Cult, Aerobe / Anaerobe+Susc (12/30/2021 2:05 PM PROPERTY MANAGEMENT INTERN) Component Value Ref Test Analysis Performed At [facility] Managed Systems Range Method Time Signature Bacteria STAPHYLOCOCCUS EPIDERMIDIS 01/11/2022 DT L Cult, Growth after 4 days 7:55 AM PROPERTY MANAGEMENT INTERN Aerobe/Anaero (A) be+Susc Comment: Semi-Urgent Result. Semi-Urgent This is a semi-urgent result [facility] - () [facility] Specimen Anatomical Collection Method Collection Time Receive d Time (Source) Location / / Volume Laterality Synovial Fluid, 12/30/2021 2:05 PM 2021 3:17 Left Shoulder PROPERTY MANAGEMENT INTERN PM PROPERTY MANAGEMENT INTERN Comment: Specimen Source Site: Fluid Narrative [facility] - 01/11/2022 7:55 AM PROPERTY MANAGEMENT INTERN Bacterial Culture: Placed in Bactec aero bic [...] e Number [facility] - [address] [place] [address] [place] [address] [address] Bacteria Cult, Aerobe / Anaerobe+Susc (12/30/2021 2:04 PM PROPERTY MANAGEMENT INTERN) [facility] Method Time Signature Bacteria Cult, No growth 01/13/2022 [facility] Aerobe/Anaerob after 14 4:02 PM PROPERTY MANAGEMENT INTERN e+Susc days of incubation. Specimen Anatomical Collection Method Collection Time Receive d Time (Source) Location / / Volume Laterality Shoulder, Left 12/30/2021 2:04 PM 022 3:34 PROPERTY MANAGEMENT INTERN PM PROPERTY MANAGEMENT INTERN Comment: Specimen Source Site: Tissue #3 Narrative [facility] - 01/13/2022 4:02 PM PROPERTY MANAGEMENT INTERN Bacterial Culture: Placed in Bactec aero bic and Bactec anaerobic bottles Cyrus Polk M.D. LAB MICROBIOLOGY - GENERAL O RDERABLES Performing Organization Address City/[facility] Phon e Number [facility] - [address] [place], [place] [address] [facility] [place] [address] [address] [facility] Bacteria Cult, Aerobe / Anaerobe+Susc (12/30/2021 2:03 PM PROPERTY MANAGEMENT INTERN) [facility] Method Time Signature Bacteria Cult, No growth 01/13/2022 DTL Aerobe/Anaerob after 14 4:02 PM PROPERTY MANAGEMENT INTERN e+Susc days of incubation. Specimen Anatomical Collection Method Collection Time Receive d Time (Source) Location / / Volume Laterality Shoulder, Left 12/30/2021 2:03 PM 022 3:37 PROPERTY MANAGEMENT INTERN PM PROPERTY MANAGEMENT INTERN Comment: Specimen Source Site: Tissue #2 Narrative [facility] - 01/13/2022 4:02 PM PROPERTY MANAGEMENT INTERN Bacterial Culture: Placed in Bactec aero bic and Bactec anaerobic bottles Cyrus Polk M.D. LAB MICROBIOLOGY - GENERAL O MARY Performing Organization Address City/[facility] Code Phon e Number [facility] - [address] [place], [place] [address] [place], [place] [id number] [place] [address] [facility] Bacteria Cult, Aerobe / Anaerobe+Susc (12/30/2021 2:03 PM PROPERTY MANAGEMENT INTERN) [facility] Method Time Signature Bacteria Cult, No growth 01/13/2022 DTL Aerobe/Anaerob after 14 4:02 PM PROPERTY MANAGEMENT INTERN e+Susc days of incubation. Specimen Anatomical Collection Method Collection Time Receive d Time (Source) Location / / Volume Laterality Shoulder, Left 12/30/2021 2:03 PM 022 3:31 PROPERTY MANAGEMENT INTERN PM PROPERTY MANAGEMENT INTERN Comment: Specimen Source Site: Tissue #1 Narrative [facility] - 01/13/2022 4:02 PM PROPERTY MANAGEMENT INTERN Bacterial Culture: Placed in Bactec aero bic and Bactec anaerobic bottles Cyrus W Jam M.D. LAB MICROBIOLOGY - GENERAL O RDERABLES Performing Organization Address City/State/ZIP Code Phon e Number [facility] - [address] [place], [place] [address] [facility] [place] [address] [address] [...] tablet 1,000 mg Given 01/01/2022 11:36 AM PROPERTY MANAGEMENT INTERN 1,00 0 mg (TYLENOL) 1,000 mg, oral, Every 6 hours, First dose on Tue12/30/21 at 1800 Given 01/01/2022 6:28 AM PROPERTY MANAGEMENT INTERN 1,000 mg Given 12/31/2021 11:51 PM PROPERTY MANAGEMENT INTERN 1,000 mg albuterol nebulizer solution 2.5 mg Given 12/31/2021 4:44 PM PROPERTY MANAGEMENT INTERN 2.5 mg 2.5 mg, nebulization, Every 6 hours PRN, wheezing, Starting on Tue12/30/21 at 1711, Albuterol nebs were interchanged for albuterol/levalbuterol MDI (same frequency) atorvastatin tablet 80 mg (LIPITOR) Given 12/31/2021 8:57 PM PROPERTY MANAGEMENT INTERN 80 mg 80 mg, oral, Daily at bedtime, First dose on Tue12/30/21 at 2100 Given 12/30/2021 9:55 PM PROPERTY MANAGEMENT INTERN 80 mg benzonatate capsule 100 mg (TESSALON PER LES) Given 01/01/2022 3:10 AM PROPERTY MANAGEMENT INTERN 100 mg 100 mg, oral, 3 times daily PRN, cough, Starting on Tue12/31/21 at 1702, Swallow whole. Do NOT crush, chew or open capsule. Given 12/31/2021 5:39 PM PROPERTY MANAGEMENT INTERN 100 mg bupivacaine PF 0.2 % 550 mL in NaCl New Bag 01/01/2022 3:15 PM PROPERTY MANAGEMENT INTERN 6 mL/hr 6 mL/hr 0.9% On-Q pain pump (CB004) 6 mL/hr, nerve catheter, Continuous, Starting on Tue01/01/22 at 1500, PACU & Post-Op, Location: Nerve Catheter Location, Nerve Catheter Location: Interscalene, Device: On-Q Pump bupivacaine PF 0.2 % in Rate/Dose Verify 01/01/2022 1:00 AM PROPERTY MANAGEMENT INTERN 6 mL/ hr 6 mL/hr NaCl 0.9% 341 mL infusion (MARCAINE) 6 mL/hr, nerve catheter, Continuous, Starting on Tue12/30/21 at 1600, PACU & Post-Op, Nerve Catheter Location: Interscalene, Device: Hospital Infusion Pump Rate/Dose Verify 12/31/2021 12:11 AM PROPERTY MANAGEMENT INTERN 6 mL/hr 6 mL/hr New Bag 12/30/2021 3:49 PM PROPERTY MANAGEMENT INTERN 6 mL/hr 6 mL/hr buPROPion XL 24 hr tablet 150 mg (WELLBUTRIN Given 02/2022 8:35 AM PROPERTY MANAGEMENT INTERN 150 mg XL) 150 mg, oral, Every morning, First dose on Clementine 12/31/21 at 0900, Swallow whole. Do NOT crush, chew, or split tablet. Given 12/31/2021 8:16 AM PROPERTY MANAGEMENT INTERN 150 mg calcium carbonate chewable tablet Given 12/31/2021 11: 46 PM PROPERTY MANAGEMENT INTERN 400 mg of calcium 400 mg of calcium (TUMS) 400 mg of calcium, oral, Every 2 hour PRN, indigestion, Starting on Tue12/30/21 at 1711, Doses listed are in mg of elemental calcium. Take with food. 500 mg calcium carbonate contains 200 mg of elemental calcium. Given 12/31/2021 9:15 PM PROPERTY MANAGEMENT INTERN 400 mg of calcium carboxymethylcellulose 0.5 % ophthalmic Given 01/01/2022 1:15 AM PROPERTY MANAGEMENT INTERN 2 drops solution 2 drop (REFRESH PLUS) 2 drop, both eyes, 4 times daily PRN, dry eyes, Starting on Tue12/30/21 at 1711 Given 12/31/2021 12:31 PM PROPERTY MANAGEMENT INTERN 2 drops Given 12/31/2021 12:23 AM PROPERTY MANAGEMENT INTERN 2 drops cefTRIAXone in dextrose (iso-osm) IVPB New Bag 01/01/2022 2:38 PM PROPERTY MANAGEMENT INTERN 2 g 200 mL/hr 2 g (ROCEPHIN) 2 g, intravenous, at 200 mL/hr, Administer over 15 Minutes, Daily before lunch, First dose on Tue01/01/22 at 1345, Drug Monitoring Program: Pharmacist to adjust medication dosing based on indication and drug clearance factors., Indications: Bone and/or joint infection cetirizine tablet 10 mg (ZyrTEC) Given 01/01/2022 8:35 AM PROPERTY MANAGEMENT INTERN 10 mg 10 mg, oral, 2 times daily, First dose on Tue12/30/21 at 2100, Drug Monitoring Program: Pharmacist to adjust medication dosing based on indication and drug clearance factors. Given 12/31/2021 8:57 PM PROPERTY MANAGEMENT INTERN 10 mg Given 12/31/2021 8:16 AM PROPERTY MANAGEMENT INTERN 10 mg cholecalciferol (vitamin D3) tablet 25 m cg Given 01/01/2022 8:35 AM PROPERTY MANAGEMENT INTERN 25 mcg 25 mcg, oral, Daily, First dose on Tue12/31/21 at 0900, cholecalciferol (vitamin D3) orderable was interchanged for cholecalciferol (vitamin D3) tablet/capsule Given 12/31/2021 8:16 AM PROPERTY MANAGEMENT INTERN 25 mcg D5W infusion 10-250 mL/hr, intravenous, [...] 5 mg (VALIUM) Given 12/31/2021 12:31 PM PROPERTY MANAGEMENT INTERN 5 mg 5 mg, oral, 4 times daily PRN, muscle spasms, Starting on Tue12/30/21 at 2243 Given 12/31/2021 1:59 AM PROPERTY MANAGEMENT INTERN 5 mg diphenhydrAMINE capsule 25 mg (BENADRYL) 25 mg, oral, Daily PRN, itching, Starting on Tue 2 at 0854 diphenhydrAMINE capsule 75 mg (BENADRYL) Given 01/01/2022 8:49 AM PROPERTY MANAGEMENT INTERN 75 mg 75 mg, oral, Bedtime PRN, sleep, Starting on Tue12/30/21 at 1715 FLUoxetine capsule 80 mg (PROzac) Given 01/01/2022 8:34 AM PROPERTY MANAGEMENT INTERN 80 mg 80 mg, oral, Daily, First dose on Tue12/31/21 at 0900, FLUoxetine orderable was interchanged for FLUoxetine tablet/capsule Given 12/31/2021 8:16 AM PROPERTY MANAGEMENT INTERN 80 mg fluticasone furoate 100 mcg/actuation Given 01/01/2022 8:[address] 2 puffs inhaler 2 puff (ARNUITY ELLIPTA) 2 puff, inhalation, 2 times daily, First dose on Tue12/30/21 at 2100, fluticasone furoate 100 mcg was interchanged for fluticasone MDI 110 mcg Given 12/31/2021 9:04 PM PROPERTY MANAGEMENT INTERN 2 puffs Given 12/31/2021 8:17 AM PROPERTY MANAGEMENT INTERN 2 puffs gentamicin powder (for bone Given 12/30/2021 2:40 PM PROPERTY MANAGEMENT INTERN 4 vials Left Shoulder cement) As needed, Starting on Tue12/30/21 at 1440, Intra-Op heparin PF flush syringe 50-150 Units 50-150 Units, intravenous, Once as neede d, line care, 50 units (5 mL) to each lumen of non-valved catheters only, Starting on Tue01/01/22 a t 0817, For 1 dose HYDROmorphone (PF) injection 0.4 mg Given 01/01/2022 4:56 AM PROPERTY MANAGEMENT INTERN 0.4 mg (DILAUDID) 0.4 mg, intravenous, Every 2 hour PRN, severe pain or score 7-10 of 10, Starting on Tue12/30/21 at 1711, For 5 doses, May administer if pain is greater than 7 after scheduled and PRN regimen exhausted. If pain remains greater than 7, notify primary service. Given 12/31/2021 11:35 AM PROPERTY MANAGEMENT INTERN 0.4 mg Given 12/31/2021 4:14 AM PROPERTY MANAGEMENT INTERN 0.4 mg ipratropium-albuteroL 0.5-2.5 mg/3 mL nebulizer Given 01/01/2022 3:15 AM PROPERTY MANAGEMENT INTERN 3 mL solution 3 mL (DUONEB) 3 mL, nebulization, 4 times daily PRN, shortness of breath, wheezing, Starting on Tue12/30/21 at 1711 lactated ringers Rate/Dose Change 01/01/2022 1:00 AM PROPERTY MANAGEMENT INTERN 20 mL/hr 20 mL/hr 75 mL/hr, intravenous, Continuous, Starting on Tue12/30/21 at 1715, Until patient has 500cc po intake New Bag 12/31/2021 11:46 PM PROPERTY MANAGEMENT INTERN 75 mL/hr 75 mL/hr Rate/Dose Change 12/31/2021 3:55 AM PROPERTY MANAGEMENT INTERN 20 mL/hr 20 mL/hr lactated ringers Continued from OR 12/30/2021 4:00 PM PROPERTY MANAGEMENT INTERN 75 mL/hr 75 mL/hr 75 mL/hr, intravenous, Continuous, Starting on Tue12/30/21 at 1600, PACU & Post-Op lamoTRIgine tablet 200 mg (LaMICtaL) Given 01/01/2022 8:34 AM PROPERTY MANAGEMENT INTERN 200 mg 200 mg, oral, 2 times daily, First dose on Tue12/30/21 at 2100 Given 12/31/2021 8:56 PM PROPERTY MANAGEMENT INTERN 200 mg Given 12/31/2021 8:16 AM PROPERTY MANAGEMENT INTERN 200 mg methylene blue 0.5 % (5 mg/mL) Given 12/30/2021 2:39 PM PROPERTY MANAGEMENT INTERN 2 mL Left Shoulder injection As needed, [...] 10 mg (ROXICODONE) Given 01/01/2022 2:38 PM PROPERTY MANAGEMENT INTERN 10 mg 10 mg, oral, Every 3 hours PRN, severe pain or score 7-10 of 10, Starting on Clementine 12/31/21 at 1745 Given 01/01/2022 11:35 AM PROPERTY MANAGEMENT INTERN 10 mg Given 01/01/2022 7:07 AM PROPERTY MANAGEMENT INTERN 10 mg oxyCODONE IR tablet 5 mg (ROXICODONE) 5 mg, oral, Every 3 hours PRN, moderate pain or score 4-6 of 10, Starting on Clementine 12/31/21 at 1745, If patient is >75 consider changing to 2.5-5mg scale pantoprazole DR tablet 40 mg (PROTONIX) Given 01/01/2022 3:46 PM PROPERTY MANAGEMENT INTERN 40 mg 40 mg, oral, 2 times daily before breakfast and dinner, First dose on Tue12/31/21 at 0700, pantoprazole 40 mg oral twice daily was interchanged for esomeprazole 20 or 40 mg oral twice daily Swallow whole. Do NOT crush, chew, or split tablet. Given 01/01/2022 6:29 AM PROPERTY MANAGEMENT INTERN 40 mg Given 12/31/2021 4:47 PM PROPERTY MANAGEMENT INTERN 40 mg pregabalin capsule 600 mg (LYRICA) Given 01/01/2022 8:34 AM PROPERTY MANAGEMENT INTERN 600 mg 600 mg, oral, 2 times daily, First dose on Tue12/30/21 at 2100 Given 12/31/2021 8:56 PM PROPERTY MANAGEMENT INTERN 600 mg Given 12/31/2021 8:15 AM PROPERTY MANAGEMENT INTERN 600 mg QUEtiapine tablet 50 mg (SEROquel) Given 12/31/2021 8:57 PM PROPERTY MANAGEMENT INTERN 50 mg 50 mg, oral, Daily at bedtime, First dose on Tue12/30/21 at 2100 Given 12/30/2021 9:55 PM PROPERTY MANAGEMENT INTERN 50 mg sennosides-docusate sodium 8.6-50 mg per Given 01/01/2022 8:35 A M PROPERTY MANAGEMENT INTERN 1 tablet tablet 1 tablet (SENOKOT-S) 1 tablet, oral, 2 times daily, First dose on Tue12/30/21 at 2100, Do not give if patient has diarrhea. Given 12/31/2021 8:57 PM PROPERTY MANAGEMENT INTERN 1 tablet Given 12/31/2021 8:16 AM PROPERTY MANAGEMENT INTERN 1 tablet sodium chloride 0.9 % injection [...] injection 3 mL Given 12/31/2021 8:18 AM PROPERTY MANAGEMENT INTERN 3 mL 3 mL, intravenous, Every 12 hours scheduled, First dose on Tue12/30/21 at 2100, PACU & Post-Op, Peripheral Intravenous Catheter and Rapid Infusion Catheter, when no infusion to maintain patency Given 12/30/2021 9:53 PM PROPERTY MANAGEMENT INTERN 3 mL vancomycin powder Given 12/30/2021 2:40 PM PROPERTY MANAGEMENT INTERN 4 g Left Shoulder As needed, Starting on Tue12/30/21 at 1440, Intra-Op zonisamide capsule 300 mg (ZONEGRAN) Given 01/01/2022 8:35 AM PROPERTY MANAGEMENT INTERN 300 mg 300 mg, oral, 2 times daily, First dose on Tue12/30/21 at 2100, Swallow whole. Do NOT crush, chew or open capsule. Given 12/31/2021 8:57 PM PROPERTY MANAGEMENT INTERN 300 mg Given 12/31/2021 8:16 AM PROPERTY MANAGEMENT INTERN 300 mg documented in this encounter Active and Recently Administered Medications Times are shown in PROPERTY MANAGEMENT INTERN. Scheduled Medication Order 12/30/2021 12/31/2021 01/01/2022 acetaminophen [...] 1419 (Given - Provider: Emre Rodriguez APRN, [facility]) 2,000 mg (rounded from 1,747.5 mg [...] mg of calcium, oral, Every 2 hour NE N, indigestion, Starting on Tue12/30/21 at 1711, [...] 3 days 1 patch (TRANSDERM S FOOD INSPECTOR) (CANCELED) 1202 (Medication Applied - Provider: Manda [...] as of this encounter Care Teams Clinical Practice Consultant Relationship Specialty Start Date End Date Elsewhere, Pcp PCP - General Family Medicine 12/25/21 documented as of this encounter
--- OUTSIDE RECORDS SUMMARY | 2022-08-17 06:57 | XMS_ITS | Encounter Summary ---
:1965 Author Organization [facility] Address [address] [place] [address] Care Team Providers Name Role Phone Elsewhere, Pcp Primary Care Provider Unavailable Reason for Visit Reason Comments Pre-op Exam Outpatient (Routine) - Closed Specialty Diagnoses / Procedures Referred By Contact Refer red To Contact Orthopedic Surgery Diagnoses Preoperative Exam Painful Total Joint Arthroplasty Initial (HCC) Alfredo Herrera [facility] [address] [place] [phone] Referral ID Status Reason Start Date Expiration Date Visits Requ ested Visits Authorized [id number] Closed 10/13/2021 10/13/2022 1 1 Encounter Details Date Type Department Care Team Description 12/29/2021 Office Visit Department of Cyrus Polk Shoulde r Left (Primary Dx); Orthopedic Surgery in [place] Preoperative Exam; [place], [place] [address] [place] [address] Painful Total Joint Arthroplasty Initial ([facility]) [address] [place] [phone] Social History Tobacco Use Types Packs/Day Years [...] you attend tenriism or Patient refused 2021 buddhist services? Do [...] involve the use of a medical record specialist made by a company withvidya I or one of my partners have collaborated to design, develop, or improve orthopedic implants, instruments, or products. Both the [facility] and the individual surgeons involved receive royalty payments from the use of those specific devices at other institutions, but no royalties or any other payments are paid for the use of those devices with any [facility] patient. The clinical rationale for the use of those devices as well as the availability and applicability of alternative devices was reviewed. He understands that the final decision for the use of a specific medical record specialist often is made at the time of surgery. All of his questions were answered; he understands and agrees with my approach to device selection and wants to proceed. FFIN PLANT SWEATER OPERATOR documented in this encounter Plan of Treatment Upcoming Encounters Date Type Specialty Care Team Description 09/01/2022 Clinical Communication Admitting/Central Scheduling 09/06/2022 Appointment Radiology Alfredo Herrera O.P.A.-C. [address] [place] [address] 09/06/2022 Office Visit Orthopedic Surgery Cyrus Polk M.D. [address] [place] [address] documented as of this encounter Visit Diagnoses Diagnosis Pain Shoulder Left - Primary Preoperative Exam Painful Total Joint Arthroplasty Initial (HCC) documented in this encounter Additional Health Concerns Infection Onset Date Last Indicated Resolved Time COVID19 Pending 12/29/2021 12/29/2021 12/29/2021 4:20 PM PARAFFIN PLANT SWEATER OPERATOR Assessment Noted Time PHQ-9 Depression Total Score: 16 02/11/2021 12:00 AM C DT documented as of this encounter Care Teams Second Ride Fare Collector Relationship Specialty Start Date End Date Elsewhere, Pcp PCP - General Family Medicine 12/25/21 documented as of this encounter
--- OUTSIDE RECORDS SUMMARY | 2022-08-17 06:57 | XMS_ITS | Encounter Summary ---
:1965 Author Organization [facility] Address [address] [place] [address] Care Team Providers Name Role Phone Elsewhere, Pcp Primary Care Provider Unavailable Encounter Details Date Type Department Care Team Description 12/29/2021 Hospital Encounter Department of Alfredo Herrera ative Exam; Laboratory Medicine A, O.P.A.-C. Painful Total Joint Arthroplasty Initial (HCC) and Pathology, [address] [place] [address], in [place] [phone] [place] [phone] [place] [address] (Work) [place], [place] [phone] [phone] (Fax) [phone] Social History Tobacco Use Types Packs/Day Years [...] you attend pentecostal or Patient refused 2021 catholic services? Do [...] THC multivit-min/iron/folic/ Take 1 tablet by 0 aas523 (HAIR, SKIN AND mouth daily. NAILS ADVANCED [...] Appointment Radiology Alfredo Herrera O.P.A.-C. [address] [place] [phone] 09/06/2022 Office Visit Orthopedic Surgery Cyrus Polk M.D. [address] [place] [phone] documented as of this encounter Procedures Procedure Name Priority Date/Time Associated Diagnosis Comme nts ANTIBODY SCREEN, Routine 12/29/2021 11:34 Results for this RBC AM PULVERIZER OPERATOR procedure are i n the results section. CBC WITH Routine 12/29/2021 11:34 Preoperative Ex am Results for this DIFFERENTIAL, B AM PULVERIZER OPERATOR Painful Total Joint proce dure are in Arthroplasty Initial the res ults ([facility]) section. TYPE AND SCREEN Routine 12/29/2021 11:34 Preoperative Ex am Results for this AM PULVERIZER OPERATOR Painful Total Joint procedur e are in Arthroplasty Initial the res ults (HCC) section. BASIC METABOLIC Routine 12/29/2021 11:34 Preoperative Ex am Results for this PANEL, S/P AM PULVERIZER OPERATOR Painful Total Joint procedur e are in Arthroplasty Initial the res ults (HCC) section. documented in this encounter Results Antibody Screen, RBC (12/29/2021 11:34 AM PULVERIZER OPERATOR) athologist Signature Antibody Negative Negative 12/29/2021 DTL Screen 12:59 PM PULVERIZER OPERATOR Specimen Anatomical Collection Method Collection Time Receive d Time (Source) Location / / Volume Laterality Blood 12/29/2021 11:34 12/29/2021 AM PULVERIZER OPERATOR 11:58 AM PULVERIZER OPERATOR Alfredo Kamara LAB BLOOD BANK TEST ORDERABL ES Performing Organization Address City/State/ZIP Code Phon e Number [facility] - [address] [place], [place] [address] [facility] [place] [address] [facility] [address] (ABNORMAL) Basic Metabolic Panel (12/29/2021 11:34 AM PULVERIZER OPERATOR) athologist Signature Potassium, S 4.7 3.6 - 5.2 12/29/2021 DTL mmol/L 12:38 PM PULVERIZER OPERATOR Sodium, S 143 135 - 145 12/29/2021 DTL mmol/L 12:38 PM PULVERIZER OPERATOR Chloride, S 108 (H) 98 - 107 12/29/2021 DTL mmol/L 12:38 PM PULVERIZER OPERATOR Bicarbonate, S 24 22 - 29 12/29/2021 DTL mmol/L 12:38 PM PULVERIZER OPERATOR Anion Gap 11 7 - 15 12/29/2021 DTL 12:38 PM PULVERIZER OPERATOR BUN (Blood Urea 15 6 - 21 12/29/2021 DTL Nitrogen), S mg/dL 12:38 PM PULVERIZER OPERATOR Creatinine 0.83 0.59 - 12/29/2021 DTL 1.04 mg/dL 12:38 PM PULVERIZER OPERATOR eGFR-Non 78 >=60 12/29/2021 DTL Black/ mL/min/BSA 12:38 PM PULVERIZER OPERATOR Maldivian Comment: ----ADDITIONAL INFORMATION---- Estimated GFR calculated using the 2009 CKD_EPI creatinine equation. eGFR-Black/ 90 >=60 mL/min/BSA 2021 12:38 PM PULVERIZER OPERATOR DTL Comment: ----ADDITIONAL INFORMATION---- Estimated GFR calculated using the 2009 CKD_EPI creatinine equation. Calcium, Total, S 9.1 8.6 - 10.0 mg/dL 12/29/2021 12:3 8 PM PULVERIZER OPERATOR DTL Glucose, S 90 70 - 140 mg/dL 12/29/2021 12:38 PM PULVERIZER OPERATOR DTL Specimen Anatomical Collection Method Collection Time Receive d Time (Source) Location / / Volume Laterality Blood (Blood, 12/29/2021 11:34 12/29/2021 Venous) AM PULVERIZER OPERATOR 12:13 PM PULVERIZER OPERATOR Alfredo Kamara LAB BLOOD ADD-ON Performing Organization Address City/[facility] Phon e Number [facility] - [address] [place] [address] Type and Screen (with reflex Antibody ID) (12/29/2021 11:34 AM PULVERIZER OPERATOR) [facility] gist Method Time Signature ABORh A Neg Not applicable 12/29/2021 ETRM 12:59 PM PULVERIZER OPERATOR Antibody CANCELED 12/29/2021 ETRM Screen 12:59 PM PULVERIZER OPERATOR Comment: Result canceled by the theo y. Type & Screen Expiration 02/26/2022 23:59 12/29/19 22 12:59 PM PULVERIZER OPERATOR ETRM Testing Location Ara DEFAULT 12/29/2021 11:58 AM PULVERIZER OPERATOR ETRM Specimen Anatomical Collection Method Collection Time Receive d Time (Source) Location / / Volume Laterality Blood (Blood, 12/29/2021 11:34 12/29/2021 Venous) AM PULVERIZER OPERATOR 11:58 AM PULVERIZER OPERATOR Alfredo Kamara LAB BLOOD BANK TEST ORDERABL ES Performing Organization Address [facility] Phon e Number [facility] [address] [place] [phone] [facility] [place] [address] (ABNORMAL) CBC with Differential, Blood (12/29/2021 11:34 AM PULVERIZER OPERATOR) [facility] gist Method Time Signature Hemoglobin 11.2 (L) 11.6 - 12/29/2021 DTL 15.0 g/dL 12:02 PM PULVERIZER OPERATOR Hematocrit 34.1 (L) 35.5 - 12/29/2021 DTL 44.9 % 12:02 PM PULVERIZER OPERATOR Erythrocytes 4.04 3.92 - 12/29/2021 DTL 5.13 12:02 PM PULVERIZER OPERATOR x10(12)/L MCV 84.4 78.2 - 12/29/2021 DTL 97.9 fL 12:02 PM PULVERIZER OPERATOR RBC Distrib Width 20.2 (H) 12.2 - 12/29/2021 DTL 16.1 % 12:02 PM PULVERIZER OPERATOR Platelet Count 324 157 - 371 12/29/2021 DTL x10(9)/L 12:02 PM PULVERIZER OPERATOR Leukocytes 5.1 3.4 - 9.6 12/29/2021 DTL x10(9)/L 12:02 PM PULVERIZER OPERATOR Neutrophils 3.08 1.56 - 12/29/2021 DTL 6.45 12:02 PM PULVERIZER OPERATOR x10(9)/L Lymphocytes 1.39 0.95 - 12/29/2021 DTL 3.07 12:02 PM PULVERIZER OPERATOR x10(9)/L Monocytes 0.43 0.26 - 12/29/2021 DTL 0.81 12:02 PM PULVERIZER OPERATOR x10(9)/L Eosinophils 0.17 0.03 - 12/29/2021 DTL 0.48 12:02 PM PULVERIZER OPERATOR x10(9)/L Basophils 0.05 0.01 - 12/29/2021 DTL 0.08 12:02 PM PULVERIZER OPERATOR x10(9)/L Specimen Anatomical Collection Method Collection Time Receive d Time (Source) Location / / Volume Laterality Blood (Blood, 12/29/2021 11:34 12/29/2021 Venous) AM PULVERIZER OPERATOR 11:54 AM PULVERIZER OPERATOR Alfredo Kamara LAB BLOOD ADD-ON Performing Organization Address City/State/ZIP Code Phon e Number [facility] - [address] [place], [place] [address] [facility] [place] [address] [facility] [address] documented in this encounter Visit Diagnoses Diagnosis Preoperative Exam Painful Total Joint Arthroplasty Initial (HCC) documented in this encounter Additional Health Concerns Assessment Noted Time PHQ-9 Depression Total Score: 16 02/11/2021 12:00 AM C DT documented as of this encounter Care Teams Sliver Lapper Relationship Specialty Start Date End Date Elsewhere, Pcp PCP - General Family Medicine 12/25/21 documented as of this encounter
--- OUTSIDE RECORDS SUMMARY | 2022-08-17 06:57 | XMS_ITS | Encounter Summary ---
:1965 Author Organization [facility] Address [address] [place] [address] Care Team Providers Name Role Phone Elsewhere, Pcp Primary Care Provider Unavailable Encounter Details Date Type Department Care Team Description 12/30/2021 Anesthesia Event RST SEBAS MORAN OR Clifford Young M.D. [address] [place] [phone] [address] [facility] Collin Fernández M.D. [address] [place] [phone] [place] [phone] Anesthesia Record Procedure Summary [...] h andoff to the receiving staff during [facility] ch we 1. Identified the patient [...] Ayakalashell Andreyscout howard T, (created via procedure CNC APPLICATIONS ENGINEER, JOURNEYMAN PAINTER CNC APPLICATIONS ENGINEER, CRN A documentation); Mask Ventilation: Easy mask; [...] you attend nondenominational or Patient refused 2021 yarsanism services? Do [...] or the highest technical, or vocational p [facility] degree you have received? Sex Assigned at Date Recorded Female 03/01/2019 10:12 AM CDT documented as of this encounter OR Notes Anesthesia Postprocedure Evaluation - Clifford Young M.D. - 12/30/2021 3:55 PM CST Patient: Angie Mosquera Procedure Summary Date: 12/30/21 Room / Location: [address] / [facility] in [place], [place] Anesthesia Start: 1250 Anesthesia Stop: 1550 [...] Post Op nausea/vomiting: none Hydration status: euvolemic OPERATOR Anesthesia Procedure Notes - Emre Rodriguez APRN, CRNA - 12/30/2021 2:29 PM ZMT OPERATOR Associated Order(s): Airway Airway Date/Time: 12/30/2021 1:02 [...] successful Airway event: no complications ATTESTATION STATEMENT OPERATOR Anesthesia Preprocedure Evaluation - Clifford Young M.D. - 12/30/2021 1:23 PM CST Preprocedure Anesthesia & H&P Assessment Procedure Summary Anesthesia Start Date/Time: 12/30/21 1250 Procedure: ARTHROPLASTY RESECTION SHOULDER. 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 Location: [address] / [facility] in [place], [place] Providers: Cyrus Polk M.D. Pertinent components [...] with patient /legal guardian or through an food production machine operator. Risks/Benefits/Alternatives of Blood transfusion discussed with patient / legal guardian, including an opportunity to ask questions and/or decline some or all transfusion therapies. The patient / legalguardian consented to the use of all blood products, as deemed medically necessary Approval to Proceed: approved for anesthesia OPERATOR Anesthesia Procedure Notes - Clifford Khanna M.D. - 12/30/2021 12:56 PM ZMT OPERATOR Associated Order(s): Regional Block Regional Block Date/Time: [...] successful procedure Other complications: none ATTESTATION STATEMENT OPERATOR documented in this encounter Plan of Treatment Upcoming Encounters Date Type Specialty Care Team Description 09/01/2022 Clinical Communication Admitting/Central Scheduling 09/06/2022 Appointment Radiology Alfredo Herrera O.P.A.-C. [address] [place] [address] 09/06/2022 Office Visit Orthopedic Surgery Cyrus Polk M.D. [address] [place] [address] documented as of this encounter Procedures Procedure Name Priority Date/Time Associated Comments Diagnosis LDA ANE ENDOTRACHEAL Routine 12/30/2021 1:02 PM R esults for this AIRWAY ZMT OPERATOR procedure are i n the results section. MC ANE NERVE BLOCK Routine 12/30/2021 12:56 Resul ts for this WITH ULTRASOUND PM ZMT OPERATOR procedure ar e in the results section. LDA ANE UPPER Routine 12/30/2021 12:56 Results fo r this EXTREMITY PNC PM ZMT OPERATOR procedure are in the results section. KS US GUIDE PLC NDL Routine 12/30/2021 12:56 Resu lts for this PM ZMT OPERATOR procedure are i n the results section. KS INJ ANES BRACHIAL Routine 12/30/2021 12:56 Res ults for this PLEXUS CONT PM ZMT OPERATOR procedure are i n the results section. documented in this encounter Results LDA ANE ENDOTRACHEAL AIRWAY (12/30/2021 1:02 PM ZMT OPERATOR) Narrative Emre Rodriguez APRN, CRNA - 12/30/2021 1:02 PM ZMT OPERATOR Emre Rodriguez APRN, CRNA ? 12/30/2021 ??2:30 [...] ATTESTATION STATEMENT Clifford Young M.D. ANESTHESIA ORDERABLES KS INJ ANES BRACHIAL PLEXUS CONT, KS US GUIDE PLC NDL, LDA ANE UPPER EXTREMITY PNC, MC ANE NERVE BLOCK WITH ULTRASOUND (12/30/2021 12:56 PM ZMT OPERATOR) Narrative Clifford Khanna M.D. - 12/30/2021 12:56 P M ZMT OPERATOR Clifford Khanna M.D. ? 12/30/2021 12:57 PM [...] 5 % injection Given 12/30/2021 1:52 PM ZMT OPERATOR 250 mL intravenous, As needed, Starting on Tue12/30/21 at 1352, Anesthesia Intra-op bupivacaine PF 0.5 % (5 mg/mL) injection Given 12/30/2021 12:45 PM ZMT OPERATOR 10 mL (MARCAINE) intrathecal, As needed, Starting on Tue12/30/21 at 1245, Anesthesia Intra-op ceFAZolin injection 2,000 mg (ANCEF) Given 12/30/2021 2:19 PM ZMT OPERATOR 2 g 2,000 mg (rounded from 1,747.5 [...] dexAMETHasone injection (DECADRON) Given 12/30/2021 1:09 PM ZMT OPERATOR 8 mg intravenous, As needed, Starting on Tue12/30/21 at 1309, Anesthesia Intra-op diphenhydrAMINE injection (BENADRYL) Given 12/30/2021 1:32 PM ZMT OPERATOR 12.5 mg intravenous, As needed, Starting on Tue12/30/21 at 1332, Anesthesia Intra-op ePHEDrine (PF) injection Given 12/30/2021 1:58 PM ZMT OPERATOR 10 mg intravenous, As needed, Starting on Tue12/30/21 at 1346, Anesthesia Intra-op Given 12/30/2021 1:46 PM ZMT OPERATOR 5 mg Given 12/30/2021 1:24 PM ZMT OPERATOR 10 mg fentaNYL injection (SUBLIMAZE) Given 12/30/2021 3:12 PM ZMT OPERATOR 50 mcg intravenous, As needed, Starting on Tue12/30/21 at 1512, Anesthesia Intra-op ketamine injection (KETALAR) Given 12/30/2021 2:43 PM ZMT OPERATOR 20 mg intravenous, As needed, Starting on Tue12/30/21 at 1443, Anesthesia Intra-op lactated ringers New Bag 12/30/2021 12:53 PM ZMT OPERATOR intravenous, Continuous Infusion: Per Instructions PRN, Starting on Tue12/30/21 at 1253, Anesthesia Intra-op ondansetron (PF) injection (ZOFRAN) Given 12/30/2021 3:00 PM ZMT OPERATOR 4 mg intravenous, As needed, Starting on Tue12/30/21 at 1500, Anesthesia Intra-op phenylephrine 80 mcg/mL in Rate/Dose 12/30/2021 3:00 0.4 mcg/kg/min 20.97 NaCl 0.9% 250 mL infusion Change PM ZMT OPERATOR mL/hr intravenous, Continuous Infusion: Per Instructions PRN, Starting on Tue12/30/21 at 1404, Anesthesia Intra-op Rate/Dose Change 12/30/2021 2:36 PM ZMT OPERATOR 0.3 mcg/kg/min 15.728 mL/hr Rate/Dose Change 12/30/2021 2:25 PM ZMT OPERATOR 0.25 mcg/kg/min 13.106 mL/h r phenylephrine injection Given 12/30/2021 2:31 PM ZMT OPERATOR 100 mcg intravenous, As needed, Starting on Tue12/30/21 at 1346, Anesthesia Intra-op Given 12/30/2021 2:12 PM ZMT OPERATOR 100 mcg Given 12/30/2021 2:10 PM ZMT OPERATOR 100 mcg propofol 10 mg/mL infusion New Bag 12/30/2021 1:15 50 mcg/kg/min 2 0.97 mL/hr (DIPRIVAN) PM ZMT OPERATOR intravenous, Continuous Infusion: Per Instructions PRN, Starting on Tue12/30/21 at 1315, Anesthesia Intra-op New Bag 12/30/2021 1:09 PM ZMT OPERATOR 50 mcg/kg/min 20.97 mL/hr propofoL injection (DIPRIVAN) Given 12/30/2021 12:59 PM ZMT OPERATOR 140 mg intravenous, As needed, Starting on Tue12/30/21 at 1259, Anesthesia Intra-op rocuronium injection (ZEMURON) Given 12/30/2021 1:12 PM ZMT OPERATOR 10 mg intravenous, As needed, Starting on Tue12/30/21 at 1301, Anesthesia Intra-op Given 12/30/2021 1:01 PM ZMT OPERATOR 50 mg sugammadex injection (BRIDION) Given 12/30/2021 3:14 PM ZMT OPERATOR 139.8 mg intravenous, As needed, Starting on [...] documented as of this encounter Care Teams Canary Raiser Relationship Specialty Start Date End Date Elsewhere, Pcp PCP - General Family Medicine 12/25/21 documented as of this encounter
--- OUTSIDE RECORDS SUMMARY | 2022-08-17 06:57 | XMS_ITS | Encounter Summary ---
:1965 Author Organization [facility] Address [address] [place] [address] Care Team Providers Name Role Phone Unavailable Primary Care Provider Unavailable Reason for Visit Reason Comments Michel Encounter Details Date Type Department Care Team Description 11/25/2021 Clinical Communication Department of Chani Benjamin Neurologic Surgery in [place], [place], [place] Ph.D. [address] [facility] 200 [place] [phone] Social History Tobacco Use Types Packs/Day Years [...] you attend yarsanism or Patient refused 2021 oriental orthodox services? [...] for your help. Boris Neurosurgery Appointment Office [phone] Please respond to the RST YEYO SCHEDULING Pool Thank You R MOUNTER documented in this encounter Plan of Treatment Upcoming Encounters Date Type Specialty Care Team Description 09/01/2022 Clinical Communication Admitting/Central Scheduling 09/06/2022 Appointment Radiology Alfredo Herrera O.P.A.-C. [address] [place] [phone] 09/06/2022 Office Visit Orthopedic Surgery Cyrus Polk M.D. [address] [place] [address] documented as of this encounter Visit Diagnoses Not on filedocumented in this encounter Additional Health Concerns Assessment Noted Time PHQ-9 Depression Total Score: 16 02/11/2021 12:00 AM C DT documented as of this encounter
--- OUTSIDE RECORDS SUMMARY | 2022-08-17 06:57 | XMS_ITS | Encounter Summary ---
:1965 Author Organization [facility] Address [address] [place] [address] Care Team Providers Name Role Phone Elsewhere, Pcp Primary Care Provider Unavailable Reason for Visit Outpatient (Routine) - Closed Specialty Diagnoses / Procedures Referred By Contact Refer red To Contact Anesthesiology Diagnoses Preoperative Exam Painful Total Joint Arthroplasty Initial (HCC) Alfredo Herrera Rochest [facility] O.P.A.-CBritton [address] [place] [phone] Referral ID Status Reason Start Date Expiration Date Visits Requ ested Visits Authorized [id number] Closed 10/13/2021 10/13/2022 1 1 Encounter Details Date Type Department Care Team Description 12/29/2021 Comprehensive Visit Preoperative Cayetano Herrera, O.P.A.-CBritton [address] [place] [address] [phone] Preanesthetic Medical Exam (Primary Dx); Evaluation Center Etta Lyle M.D. 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 Do [...] Comments Blood Pressure 125/78 12/29/2021 1:21 PM BEFORE AND AFTER SCHOOL DAYCARE WORKER Pulse 64 12/29/2021 1:21 PM BEFORE AND AFTER SCHOOL DAYCARE WORKER Temperature 36.1 ??C (97 ??F) 12/29/2021 1:01 PM BEFORE AND AFTER SCHOOL DAYCARE WORKER Respiratory Rate - - Oxygen Saturation 97% 12/29/2021 1:21 PM BEFORE AND AFTER SCHOOL DAYCARE WORKER Inhaled Oxygen Concentration - - Weight 72.6 kg (160 lb 0.9 oz) 12/29/2021 1:01 PM BEFORE AND AFTER SCHOOL DAYCARE WORKER Height 152 cm (4' 11.84) 12/29/2021 1:01 PM BEFORE AND AFTER SCHOOL DAYCARE WORKER Body Mass Index 31.42 12/29/2021 1:01 PM BEFORE AND AFTER SCHOOL DAYCARE WORKER documented in this encounter H&P Notes Etta [...] RCRI score: 1; 6% risk of , [place], or cardiac arrest OBJECTIVE OBJECTIVE PHYSICAL EXAMINATION [...] 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 ([facility]) # Aneurysm Cerebral Unruptured ([facility]) # Dissection Vertebral Artery ([facility]) # 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 Written and verbal instructions given on medication [...] Lyle M.D. PGY-3, Anesthesiology and Perioperative Medicine [facility] RE AND AFTER SCHOOL DAYCARE WORKER documented in this encounter Plan of Treatment Upcoming Encounters Date Type Specialty Care Team Description 09/01/2022 Clinical Communication Admitting/Central Scheduling 09/06/2022 Appointment Radiology Alfredo Herrera O.P.A.-C. [address] [place] [phone] 09/06/2022 Office Visit Orthopedic Surgery Cyrus Polk M.D. [address] [place] [phone] documented as of this encounter Visit Diagnoses [...] COVID19 Pending 12/29/2021 12/29/2021 12/29/2021 4:20 PM BEFORE AND AFTER SCHOOL DAYCARE WORKER Assessment Noted Time PHQ-9 Depression Total Score: 16 02/11/2021 12:00 AM C DT documented as of this encounter Care Teams Recep Relationship Specialty Start Date End Date Elsewhere, Pcp PCP - General Family Medicine 12/25/21 documented as of this encounter
--- OUTSIDE RECORDS SUMMARY | 2022-08-17 06:57 | XMS_ITS | Encounter Summary ---
:1965 Author Organization [facility] Address [address] [place] [address] Care Team Providers Name Role Phone Elsewhere, Pcp Primary Care Provider Unavailable Encounter Details Date Type Department Care Team Description 12/29/2021 Hospital Encounter Department of Alfredo Herrera ative Exam; Radiology, Clifton GonzalesPEmilioCBritton Painful Total Joint Arthroplasty Initial ([facility]) Building, in [address] [place] [phone] [place] [address] [place], [place] (Work) [phone] Social History Tobacco Use [...] you attend restorationist or Patient refused 2021 restorationism services? Do [...] THC multivit-min/iron/folic/ Take 1 tablet by 0 [id number] (HAIR, SKIN AND mouth daily. NAILS ADVANCED [...] Alfredo Herrera O.P.A.-C. [address] [place] [phone] 09/06/2022 Office Visit Orthopedic Surgery Cyrus Polk M.D. [address] [place] [address] documented as of this encounter Procedures Procedure Name Priority Date/Time Associated Comments Diagnosis DX SHOULDER LEFT RAD - Routine 12/29/2021 10:30 Preoperative E xam Results for this 2+ VIEWS (most inpatients AM OUTSIDE SALES ADVERTISING EXECUTIVE Painful Total Joint proc edure are in and all Arthroplasty the results outpatients) Initial (HCC) section. documented in this encounter Results DX Shoulder Left 2+ Views (12/29/2021 10:30 AM OUTSIDE SALES ADVERTISING EXECUTIVE) Anatomical Region Laterality Modality Upper Extremity, Shoulder, Musculoskeletal RST LOS, Left Digital Radiography Musculoskeletal ARZ LOS, Muskuloskeletal FLA LOS Specimen (Source) Anatomical Collection Method Collection Time Re ceived Time Location / / Volume Laterality 12/29/2021 10:53 AM OUTSIDE SALES ADVERTISING EXECUTIVE Impressions 12/29/2021 10:57 AM OUTSIDE SALES ADVERTISING EXECUTIVE Demineralization. Left shoulder arthroplasty revision to a reverse TSA. Developing lucency about the glenoi d component screws when compared back to 11/13/20, compatible with loosening. Pre sumed distal clavicle resection. Incompletely imaged instrumented spinal fusion from the upper cervical spine to the upper thoracic spine. Spinal cord st imulator. At least one old healed left posterior rib fracture. Narrative 12/29/2021 10:57 AM OUTSIDE SALES ADVERTISING EXECUTIVE EXAM: ??DX SHOULDER LEFT 2+ VIEWS Procedure [...] COVID19 Pending 12/29/2021 12/29/2021 12/29/2021 4:20 PM OUTSIDE SALES ADVERTISING EXECUTIVE Assessment Noted Time PHQ-9 Depression Total Score: 16 02/11/2021 12:00 AM C DT documented as of this encounter Care Teams Sock Boarder Relationship Specialty Start Date End Date Elsewhere, Pcp PCP - General Family Medicine 12/25/21 documented as of this encounter
--- OUTSIDE RECORDS SUMMARY | 2022-08-17 06:57 | XMS_ITS | Encounter Summary ---
:1965 Author Organization [facility] Address [address] [place] [address] Care Team Providers Name Role Phone Unavailable Primary Care Provider Unavailable Reason for Visit Outpatient (Routine) - Closed Specialty Diagnoses / Procedures Referred By Contact Refer red To Contact Neurology Robert Diehl M. D. [facility] [address] [place] [phone] Referral ID Status Reason Start Date Expiration Date Visits Requ ested Visits Authorized [id number] Closed 09/15/2020 09/15/2021 1 1 Encounter Details Date Type Department Care Team Description 11/18/2021 Virtual Visit Department of Robert Diehl Stroke Cere brovascular Neurology jimmy Celaya M.D. Accident Personal [place], [place] [address] [place] [address] History (Primary Dx) [address] [place] [phone] Social History Tobacco Use Types Packs/Day Years [...] you attend mosque or Patient refused 2021 moravian services? Do [...] 19 pandemic patient not seen in a [id number]-bdbs manner. This is a 56-year-old woman with [...] antibiotics she has not been seen by [facility] Orthopedics Department who are planning a two [...] by: Robert Diehl M.D. 11/18/21 11:46 AM TUB RIDER Diagnosis Plan 1. Stroke Cerebrovascular Accident Personal History RIDER documented in this encounter Plan of Treatment Upcoming Encounters Date Type Specialty Care Team Description 09/01/2022 Clinical Communication Admitting/Central Scheduling 09/06/2022 Appointment Radiology Alfredo Herrera O.P.A.-C. [address] [place] [address] 09/06/2022 Office Visit Orthopedic Surgery Cyrus Polk M.D. [address] [place] [address] documented as of this encounter Visit Diagnoses Diagnosis Stroke Cerebrovascular Accident Personal History - Primary documented in this encounter Additional Health Concerns Assessment Noted Time PHQ-9 Depression Total Score: 16 02/11/2021 12:00 AM C DT documented as of this encounter
--- OUTSIDE RECORDS SUMMARY | 2022-08-17 06:57 | XMS_ITS | Encounter Summary ---
:[address] 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 Orders in [address] [place] [phone] [place], [place] [phone] (Work) [phone] Social History Tobacco Use Types Packs/Day Years [...] you attend taoism or Patient refused 2021 voodoo services? Do you belong to any clubs or No 05/17/2022 organizations such as taoism groups, unions, [employer] or athletic groups, or school groups? 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 [address] [place] [address] 09/06/2022 Office Visit Orthopedic Surgery Cyrus Polk M.D. [address] [place] [address] Scheduled Referrals Name Type Priority Associated Order Schedule Diagnoses Orthopedic Surgery Outpatient Referral Routine Pain Shoulder L eft Expected: Pre Op (clinic) 02/24/2022, Expires: 03/28/2023 documented as of this encounter Results SARS CoV-2 RNA, PCR, Varies Asymptomatic (02/25/2022 11:09 AM CDT) [facility] Method Time Signature SARS CoV-2 Swab, [...] Drug Administration an d is used per compliance review officer's instructions. Performance characteristics were verified by [facility] in a manner consistent with CLIA requirements. Visit the CDC website: https://www.cdc.g ov/coronavirus/ for the most recent guidelines on Coron avirus testing. Fact Sheet for Healthcare Providers: https://www.fda.gov/media/622305/downloa d Fact Sheet for Patients: https://www.fda.gov/media/427759/downloa d Specimen Anatomical Collection Method Collection Time Receive d Time (Source) Location / / Volume Laterality Varies 02/25/2022 11:09 02/25/2022 (Nasopharynx) AM CDT 11:40 AM CDT Alfredo Kamara LAB MICROBIOLOGY - GENERAL O RDERABLES Performing Organization Address City/State/ZIP Code Phon e Number [facility] [place] [place], [place] [address] [facility] [place] [address] [facility] [address] documented in this encounter Visit Diagnoses Diagnosis Pain Shoulder Left - Primary documented in this encounter Additional Health Concerns Infection Onset Date Last Indicated Resolved Time COVID19 Pending 12/29/2021 12/29/2021 12/29/2021 4:20 PM 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
--- OUTSIDE RECORDS SUMMARY | 2022-08-17 06:58 | XMS_ITS | Encounter Summary ---
:1965 Author Organization [facility] Address [address] [place] [address] Care Team Providers Name Role Phone Unavailable Primary Care Provider Unavailable Reason for Visit Reason Comments pain medication Encounter Details Date Type Department Care Team Description 06/04/2021 Clinical Communication Department of Pullazaro, Dario willard medication Orthopedic Surgery Lilian Alejo in [place], [facility] [place], [place] [address] [place] [phone] [place], [place] [phone] (Work) [phone] Social History Tobacco Use Types Packs/Day Years [...] meds/scripts. Patient would like a call - [phone] documented in this encounter Plan of Treatment Upcoming Encounters Date Type Specialty Care Team Description 09/01/2022 Clinical Communication Admitting/Central Scheduling 09/06/2022 Appointment Radiology Alfredo Herrera O.P.A.-C. [address] [place] [address] 09/06/2022 Office Visit Orthopedic Surgery Cyrus Polk M.D. [address] [place] [address] documented as of this encounter Visit Diagnoses Not on filedocumented in this encounter Additional Health Concerns Assessment Noted Time PHQ-9 Depression Total Score: 16 02/11/2021 12:00 AM C DT documented as of this encounter
--- OUTSIDE RECORDS SUMMARY | 2022-08-17 06:58 | XMS_ITS | Encounter Summary ---
:1965 Author Organization [facility] Address [address] [place] [address] Care Team Providers Name Role Phone Unavailable Primary Care Provider Unavailable Encounter Details Date Type Department Care Team Description 09/23/2021 Hospital Encounter Department of Alfredo Herrera Total Joint Radiology, Anh Gonzales Arthroplasty Initial Building, in [address] [place] [address] ([facility]LY [facility]) [facility] [phone] [place] [address] [place], [place] (Work) [phone] Social History Tobacco Use Types Packs/Day Years [...] you attend baptism or Patient refused 2021 anabaptism services? Do [...] 09/06/2022 Appointment Radiology Alfredo Herrera O.P.A.-C. 200 [place] [phone] 09/06/2022 Office Visit Orthopedic Surgery Cyrus Polk M.D. 200 [place] [phone] documented as of this encounter Procedures Procedure [...]
--- OUTSIDE RECORDS SUMMARY | 2022-08-17 06:58 | XMS_ITS | Encounter Summary ---
:1965 Author Organization [facility] Address [address] [place] [address] Care Team Providers Name Role Phone Unavailable Primary Care Provider Unavailable Reason for Visit Reason Comments Nicotine Dependence Encounter Details Date Type Department Care Team Description 07/30/2021 Clinical Communication Department of [facility], Caroyln Mccarthy cotine Dependence Nicotine M.S., Dependence, C.T.T.S., [facility]C. in [address] [place] [phone] [place], [place] [phone] (Work) [phone] Social History Tobacco Use Types Packs/Day Years [...] Appointment Radiology Alfredo Herrera O.PBrittonABritton-C. [address] [place] [address] 09/06/2022 Office Visit Orthopedic Surgery Cyrus Polk M.D. [address] [place] [address] documented as of this encounter Visit Diagnoses Not on filedocumented in this encounter Additional Health Concerns Assessment Noted Time PHQ-9 Depression Total Score: 16 02/11/2021 12:00 AM C DT documented as of this encounter
--- OUTSIDE RECORDS SUMMARY | 2022-08-17 06:58 | XMS_ITS | Encounter Summary ---
:1965 Author Organization [facility] Address [address] [place] [address] Care Team Providers Name Role Phone Unavailable Primary Care Provider Unavailable Reason for Visit Reason Comments Pain Appointment Request (Routine) - Closed Specialty Diagnoses / Procedures Referred By Contact Refer red To Contact Orthopedic Surgery Diagnoses Arthroplasty Total Shoulder Replacement Status Post Left David Cohn M.D. [address] [facility] [address] [place] [address] Referral ID Status Reason Start Date Expiration Date Visits Requ ested Visits Authorized [id number] Closed 09/04/2021 09/04/2022 1 1 Encounter Details Date Type Department Care Team Description 09/23/2021 Comprehensive Visit Department of Cyrus Polk Pain Shoulder Left Orthopedic Surgery Lilian Souza (Primary Dx) in [address] [place] [phone] [place], [place] [phone] (Work) [phone] Social History Tobacco Use Types Packs/Day Years [...] you attend christian or Patient refused 2021 confucianism services? Do you belong to any clubs or No 05/17/2022 organizations such as christian groups, unions, [employer] or athletic groups, or school groups? How [...] Appointment Radiology Alfredo Herrera O.P.A.-C. [address] [place] [address] 09/06/2022 Office Visit Orthopedic Surgery Cyrus Polk M.D. [address] [place] [phone] documented as of this encounter Visit Diagnoses Diagnosis Pain Shoulder Left - Primary documented in this encounter Additional Health Concerns Assessment Noted Time PHQ-9 Depression Total Score: 16 02/11/2021 12:00 AM C DT documented as of this encounter
--- OUTSIDE RECORDS SUMMARY | 2022-08-17 06:58 | XMS_ITS | Encounter Summary ---
:1965 Author Organization [facility] Address [address] [place] [address] Care Team Providers Name Role Phone Unavailable Primary Care Provider Unavailable Reason for Referral Outpatient (Routine) - Closed Specialty Diagnoses / Procedures Referred By Contact Refer red To Contact Diagnoses Painful Total Joint Arthroplasty Initial (HCC) Alfredo Herrera [place] Procedures US Major Joint Aspiration and or Injection Left O.P.A.-C. 200 [place] [address] Referral ID Status Reason Start Date Expiration Date Visits Requ ested Visits Authorized [id number] Closed 09/07/2021 09/07/2022 1 1 Outpatient (Routine) - Closed Specialty Diagnoses / Procedures Referred By Contact Refer red To Contact Diagnoses Painful Total Joint Arthroplasty Initial (HCC) Alfredo Herrera [place] Procedures US Musculoskeletal Shoulder Left O.P.A.-C. 200 [place] [address] Referral ID Status Reason Start Date Expiration Date Visits Requ ested Visits Authorized [id number] Closed 09/07/2021 09/07/2022 1 1 Reason for Visit Outpatient (Routine) - Closed Specialty Diagnoses / Procedures Referred By Contact Refer red To Contact Diagnoses Painful Total Joint Arthroplasty Initial (HCC) Alfredo Herrera [place] Procedures US Major Joint Aspiration and or Injection Left O.P.A.-C. [address] [place] [phone] Referral ID Status Reason Start Date Expiration Date Visits Requ ested Visits Authorized [id number] Closed 09/07/2021 09/07/2022 1 1 Encounter Details Date Type Department Care Team Description 09/25/2021 Hospital Encounter Department of Alfredo Herrera Total Joint Radiology, Lebron Gonzales.P.A.-CBritton Arthroplasty Initial Building, in [address] [place] [address] ([facility]) [facility] [phone] [place] [address] [place], [place] (Work) [phone] Social History Tobacco Use [...] you attend yazidism or Patient refused 2021 hindu services? Do [...] Appointment Radiology Alfredo Herrera O.P.A.-C. [address] [place] [phone] 09/06/2022 Office Visit Orthopedic Surgery Cyrus Polk M.D. [address] [place] [address] documented as of this encounter Procedures Procedure [...] CDT Joint Arthroplasty this pr ocedure Initial ([facility]) are in the results section. CRYSTAL ID, BF Routine 09/25/2021 1:48 Painful Total Results f or PM CDT Joint Arthroplasty this proc edure Initial ([facility]) are in the results section. CELL COUNT AND Routine 09/25/2021 1:48 Results fo r DIFFERENTIAL, BF PM CDT this proced ure are in the results section. MYCOBACTERIAL Routine 09/25/2021 1:48 Painful Total Results fo r CULTURE, V PM CDT Joint Arthroplasty this proc edure Initial ([facility]) are in the results section. ACID FAST [...] CDT Joint Arthroplasty this proc edure Initial ([facility]) are in the results section. BACTERIAL CULTURE, Routine 09/25/2021 1:48 Painful Total Resul ts for ANAEROBIC + SUSC PM CDT Joint Arthroplasty this procedure Initial ([facility]) are in the results section. documented in [...] Differential, Body Fluid (09/25/2021 1:48 PM CDT) [facility] Method Time Signature Fluid Type Left 09/25/2021 DHPM Shoulder 4:50 PM CDT Gross Slightly 09/25/2021 DHPM Appearance bloody 4:50 PM CDT Total 11563 /mcL 09/25/2021 DHPM Nucleated 4:50 PM CDT Cells Comment: ----REFERENCE VALUE---- Synovial: <150 /mcL Peritoneal: <500 /mcL Pleural: <500 /mcL Pericardial: <500 /mcL ----ADDITIONAL INFORMATION---- This test has been modified from the man ufacturer's instructions. Its performance characteri stics were determined by [facility] in a manner co nsistent with [...] AND STOOLS O MARY Performing Organization Address City/[facility]/ZIP Code Phon e Number [facility] - [address] [place], [place] [address] [facility] [place] [address] Laboratories-[facility] [address] Acid Fast Smear For Mycobacterium (09/25/2021 1:48 PM CDT) [facility] Method Time Signature Acid Fast Smear Negative. 09/26/2021 DTL For Mycobacterium 2:58 PM CDT Specimen Anatomical Collection Method Collection Time Receive d Time (Source) Location / / Volume Laterality Synovial Fluid, 09/25/2021 1:48 PM 2020 3:42 Left Shoulder CDT PM CDT Comment: Specimen Source Site: Fluid Narrative [facility] - [facility] - 09/26/2021 2:58 PM CDT Fungal and Mycobacteria specimens plated for culture, volume inadequate for optimal recovery. Alfredo Kamara LAB MICROBIOLOGY - GENERAL O MARY Performing Organization Address City/State/ZIP Code Phon e Number [facility] - [address] [place], [place] [address] [facility] [place] [address] Laboratories-[facility] [address] Gram Stain (09/25/2021 1:48 PM CDT) [facility] Method Time Signature Gram Stain No [...] MEDICAL CENTER [facility] - [address] [place], [place] [address] [facility] [place] [address] [facility] [address] (ABNORMAL) Bacterial Culture, Aerobic + Susc (09/25/2021 1:48 PM CDT) Component Value Ref Test Analysis Performed At [employer] Range Method Time Signature Bacterial STAPHYLOCOCCUS EPIDERMIDIS 09/30/2021 DT L Culture, [place] 2:35 PM CDT Aerobic + (A) Susc Comment: Semi-Urgent Result. Semi-Urgent This is a semi-urgent result [facility] - ([facility]) [facility] Specimen Anatomical Collection Method Collection Time Receive d Time (Source) Location / / Volume Laterality Fluid (Synovial 09/25/2021 1:48 PM 2020 3:42 Fluid, Left CDT PM CDT Shoulder) Comment: Specimen Source Site: Fluid Narrative [facility] - 09/30/2021 2:35 PM CDT Fungal and [...] - GENERAL O RDSONIA Performing Organization Address City/[facility] Phon e Number [facility] - [address] Bacterial Culture, Anaerobic + Susc (09/25/2021 1:48 PM CDT) [employer] Method Time Signature Bacterial No growth 10/09/2021 DTL Culture, after 14 7:41 AM STRIKER OUT Anaerobic + days of Susc incubation. Specimen Anatomical Collection Method Collection Time Receive d Time (Source) Location / / Volume Laterality Fluid (Synovial 09/25/2021 1:48 PM 2020 3:42 Fluid, Left CDT PM CDT Shoulder) Comment: Specimen Source Site: Fluid Narrative [facility] - 10/09/2021 7:41 AM STRIKER OUT Fungal and Mycobacteria specimens plated for culture, volume inadequate for optimal recovery. Alfredo SchmidtCBritton LAB MICROBIOLOGY - GENERAL O MARY Performing Organization Address [facility] Phon e Number [facility] - [address] (ABNORMAL) Broad Range Bacteria PCR+Sequencing (09/25/2021 1:48 PM CDT) Component Value Ref Test Analysis Performed At [facility] [employer] Method Time Signature Broad Range This test was developed and its performance characteri stics 10/06/2021 DTL Bacteria determined by [facility] in a manner consistent with 1:24 PM STRIKER OUT PCR+Sequencin CLIA requirements. This test has not been cleared or g approved by the U.S. Food and Drug Administration. (A) Broad Range STAPHYLOCOCCUS EPIDERMIDIS 10/06/2021 DTL Bacteria DNA detected 1:24 PM STRIKER OUT PCR+Sequencin (A) g Comment: Semi-Urgent Result. Semi-Urgent This is a semi-urgent result [facility] - () [facility] Specimen Anatomical Collection Method Collection Time Receive d Time (Source) Location / / Volume Laterality Fluid (Synovial 09/25/2021 1:48 PM 2020 3:42 Fluid, Left CDT PM CDT Shoulder) Comment: Specimen Source Site: Fluid Narrative [facility] - [facility] - 10/06/2021 1:24 PM STRIKER OUT Fungal and Mycobacteria specimens plated for culture, volume inadequate for optimal recovery. Alfredo Kamara LAB MICROBIOLOGY - GENERAL O MARY Performing Organization Address City/[facility] Phon e Number [facility] - [address] [place] [address] [facility]-[address] Crystal Identification, Synovial Fluid (09/25/2021 1:48 [...] AND STOOLS O MARY Performing Organization Address City/[facility] Code Phon e Number [facility] - [address] [place], [place] [address] [place] [address] Laboratories-[address] Fungal Culture, Routine (09/25/2021 1:48 PM CDT) Patholo gist Method Time Signature Fungal No growth 10/20/2021 DTL Culture, after 24 1:01 AM STRIKER OUT Routine days of incubation. Specimen Anatomical Collection Method Collection Time Receive d Time (Source) Location / / Volume Laterality Fluid (Synovial 09/25/2021 1:48 PM 2020 3:42 Fluid, Left CDT PM CDT Shoulder) Comment: Specimen Source Site: Fluid Narrative [facility] - 10/20/2021 1:01 AM STRIKER OUT Fungal and Mycobacteria specimens plated for culture, volume inadequate for optimal recovery. Alfredo Kamara LAB MICROBIOLOGY - GENERAL O RDSONIA Performing Organization Address [facility] Phon e Number [facility] - [address] Mycobacterial Culture (09/25/2021 1:48 PM CDT) [facility] Method Time Signature Mycobacterial No growth 11/07/2021 DTL Culture after 42 1:03 AM STRIKER OUT days of incubation . Specimen Anatomical Collection Method Collection Time Receive d Time (Source) Location / / Volume Laterality Fluid (Synovial 09/25/2021 1:48 PM 2020 3:42 Fluid, Left CDT PM CDT Shoulder) Comment: Specimen Source Site: Fluid Narrative [facility] - 11/07/2021 1:03 AM STRIKER OUT Fungal and Mycobacteria specimens plated for culture, volume inadequate for optimal recovery. Alfredo Kamara LAB MICROBIOLOGY - GENERAL O MARY Performing Organization Address City/[facility] Phon e Number [facility] - 200 [place], [place] [address] documented in this encounter Visit Diagnoses [...]
--- OUTSIDE RECORDS SUMMARY | 2022-08-17 06:58 | XMS_ITS | Encounter Summary ---
:1965 Author Organization [facility] Address [address] [place] [address] Care Team Providers Name Role Phone Unavailable Primary Care Provider Unavailable Reason for Visit MRI/CAT/PET Scan (Routine) - Canceled Specialty Diagnoses / Procedures Referred By Contact Refer red To Contact Radiology Diagnoses Aneurysm Cerebral Unruptured (HCC) Robert Diehl M.D. [facility] Procedures MR Brain Angiogram without IV Contrast [address] [place] [phone] Referral ID Status Reason Start Date Expiration Date Visits V isits Requested Authorized [id number] Canceled 09/15/2020 09/15/2021 1 1 Encounter Details Date Type Department Care Team Description 09/18/2021 Hospital Encounter Department of Robert Diehl ed (Patient: Radiology, Severiano Celaya M.D. Request) [facility], [address] [place], [place] [address] [place] [address] [place], [place] [phone] (Work) [phone] Social History Tobacco Use Types Packs/Day Years [...] you attend orthodoxy or Patient refused 2021 anglican services? Do you belong to any clubs or No 05/17/2022 organizations such as orthodoxy groups, unions, [employer] or athletic groups, or school groups? How [...] Appointment Radiology Alfredo Herrera O.P.A.-C. [address] [place] [address] 09/06/2022 Office Visit Orthopedic Surgery Cyrus Polk M.D. [address] [place] [address] documented as of this encounter Visit Diagnoses Not on filedocumented in this encounter Additional Health Concerns Assessment Noted Time PHQ-9 Depression Total Score: 16 02/11/2021 12:00 AM C DT documented as of this encounter
--- OUTSIDE RECORDS SUMMARY | 2022-08-17 06:58 | XMS_ITS | Encounter Summary ---
:1965 Author Organization [facility] Address [address] [place] [address] Care Team Providers Name Role Phone Unavailable Primary Care Provider Unavailable Encounter Details Date Type Department Care Team Description 09/23/2021 Hospital Encounter Department of Alfredo Herrera Total Joint Laboratory Medicine A, O.PEmilioCBritton Arthroplasty Initial and Pathology, [address] [place] [address] ([facility]) [facility] in [facility] [address] [place] [phone] 200 [facility] (Work) [place], [place] [phone] (Fax) [phone] Social History Tobacco Use Types Packs/Day Years [...] you attend jew or Patient refused 2021 restoration services? Do [...] 09/06/2022 Appointment Radiology Alfredo Herrera O.P.A.-C. 200 [place] [phone] 09/06/2022 Office Visit Orthopedic Surgery Cyrus Polk M.D. 200 [place] [phone] documented as of this encounter Procedures Procedure Name Priority Date/Time Associated Diagnosis Comme nts SEDIMENTATION RATE, B Routine 09/23/2021 9:07 Painful Total Awilda int Results for this AM CDT Arthroplasty Initial procedu re are in ([facility]) the results section. CBC WITH DIFFERENTIAL, [...] SchmidtCBritton LAB BLOOD ADD-ON Performing Organization Address City/[facility] Code Phon e Number [facility] - [address] [place] [address] [facility]-[address] CRP (C-Reactive Protein) (09/23/2021 9:07 AM CDT) P athologist Signature C-Reactive <3.0 <=8.0 mg/L 09/23/2021 DTL Protein (CRP), 10:30 AM CDT S Specimen Anatomical Collection Method Collection Time Receive d Time (Source) Location / / Volume Laterality Blood (Blood, 09/23/2021 9:07 AM 09/23/20 9:57 Venous) CDT AM CDT Alfredo SchmidtCBritton LAB BLOOD ADD-ON Performing Organization Address City/[facility] Phon e Number [facility] - [address] [place] [address] Laboratories-[facility] [address] (ABNORMAL) CBC with Differential, Blood (09/23/2021 9:07 AM CDT) [facility] Method Time Signature Hemoglobin 10.1 (L) [...] Phon e Number [facility] - [address] [place], [place] [address] [facility] [place] [address] Laboratories-[facility] [address] documented in this encounter Visit Diagnoses Diagnosis Painful Total Joint Arthroplasty Initial (HCC) documented in this encounter Additional Health Concerns Assessment Noted Time PHQ-9 Depression Total Score: 16 02/11/2021 12:00 AM C DT documented as of this encounter
--- OUTSIDE RECORDS SUMMARY | 2022-08-17 06:58 | XMS_ITS | Encounter Summary ---
:1965 Author Organization [facility] Address [address] [place] [address] Care Team Providers Name Role Phone Unavailable Primary Care Provider Unavailable Reason for Referral Outpatient (Routine) - Closed Specialty Diagnoses / Procedures Referred By Contact Refer red To Contact Orthopedic Surgery Dario Noel M .D. [facility] 200 [place] [address] Referral ID Status Reason Start Date Expiration Date Visits Requ ested Visits Authorized [id number] Closed 06/08/2021 06/08/2022 1 1 Physical Therapy (Routine) - Closed Specialty Diagnoses / Procedures Referred By Contact Refer red To Contact Diagnoses Dissociation Scapholunate Left Dario Noel M.D. [facility] Procedures PT or OT eval and treat (first available) [address] [place] [phone] Referral ID Status Reason Start Date Expiration Date Visits Requ ested Visits Authorized [id number] Closed 06/08/2021 06/08/2022 99 99 Outpatient (Routine) - Closed Specialty Diagnoses / Procedures Referred By Contact Refer red To Contact Diagnoses Dissociation Scapholunate Left Michael Downs M.D. [facility] Procedures ORS Cast Room Visit [address] [place] [phone] Referral ID Status Reason Start Date Expiration Date Visits Requ ested Visits Authorized [id number] Closed 05/08/2021 05/08/2022 1 1 Reason for Visit Reason Comments Cast Check Follow-up Outpatient (Routine) - Closed Specialty Diagnoses / Procedures Referred By Contact Refer red To Contact Diagnoses Dissociation Scapholunate Left Michael Downs M.D. [facility] Procedures ORS Cast Room Visit [address] [place] [phone] Referral ID Status Reason Start Date Expiration Date Visits Requ ested Visits Authorized [id number] Closed 05/08/2021 05/08/2022 1 1 Encounter Details Date Type Department Care Team Description 06/08/2021 Hospital Encounter Department of Paul Downs M.D. [address] [place] [phone] Dissociation Orthopedic Surgery Dario Noel M.D. [address] [place] [phone] Scapholunate Left in [place], [place] [address] [place] [phone] Social History Tobacco Use Types Packs/Day Years [...] you attend mandaen or Patient refused 2021 druze services? Do [...] 09/06/2022 Appointment Radiology Alfredo Herrera O.P.A.-C. 200 [place] [address] 09/06/2022 Office Visit Orthopedic Surgery Cyrus Polk M.D. 200 [place] [address] Scheduled Orders Name Type Priority Associated Diagnoses [...]
--- OUTSIDE RECORDS SUMMARY | 2022-08-17 06:58 | XMS_ITS | Encounter Summary ---
:1965 Author Organization [facility] Address [address] [place] [address] Care Team Providers Name Role Phone Unavailable Primary Care Provider Unavailable Reason for Referral MRI/CAT/PET Scan (Routine) - Closed Specialty Diagnoses / Procedures Referred By Contact Refer red To Contact Radiology Diagnoses Painful Total Joint Arthroplasty Initial ([facility]) Alfredo Herrera [place] Procedures CT Shoulder Left without IV Contrast O.P.A.-C. [address] [place] [phone] Referral ID Status Reason Start Date Expiration Date Visits Requ ested Visits Authorized [id number] Closed 09/07/2021 09/07/2022 1 1 Reason for Visit MRI/CAT/PET Scan (Routine) - Closed Specialty Diagnoses / Procedures Referred By Contact Refer red To Contact Radiology Diagnoses Painful Total Joint Arthroplasty Initial ([facility]) Alfredo Herrera [place] Procedures CT Shoulder Left without IV Contrast O.P.A.-C. [address] [place] [phone] Referral ID Status Reason Start Date Expiration Date Visits Requ ested Visits Authorized [id number] Closed 09/07/2021 09/07/2022 1 1 Encounter Details Date Type Department Care Team Description 09/25/2021 Hospital Encounter Department of Alfredo Herrera Painful Total Joint Radiology, Emily HillAOmar Arthroplasty Initial Building, in [address] [place] [address] ([facility]) [facility] [phone] [facility] [phone] [place], [place] (Work) [phone] Social History Tobacco Use Types Packs/Day Years [...] you attend jewish or Patient refused 2021 baptism services? Do [...] Appointment Radiology Alfredo Herrera O.P.A.-C. [address] [place] [address] 09/06/2022 Office Visit Orthopedic Surgery Cyrus Polk M.D. [address] [place] [address] documented as of this encounter Procedures Procedure [...]
--- OUTSIDE RECORDS SUMMARY | 2022-08-17 06:58 | XMS_ITS | Encounter Summary ---
:1965 Author Organization [facility] Address [address] [place] [address] Care Team Providers Name Role Phone Unavailable Primary Care Provider Unavailable Reason for Referral Outpatient (Routine) - Closed Specialty Diagnoses / Procedures Referred By Contact Refer red To Contact Diagnoses Painful Total Joint Arthroplasty Initial (HCC) Alfredo Herrera [facility] Procedures US Major Joint Aspiration and or Injection Left O.P.A.-C. 200 [place] [address] Referral ID Status Reason Start Date Expiration Date Visits Requ ested Visits Authorized [id number] Closed 09/07/2021 09/07/2022 1 1 Outpatient (Routine) - Closed Specialty Diagnoses / Procedures Referred By Contact Refer red To Contact Diagnoses Painful Total Joint Arthroplasty Initial (HCC) Alfredo Herrera [facility] Procedures US Musculoskeletal Shoulder Left O.P.A.-C. 200 [place] [address] Referral ID Status Reason Start Date Expiration Date Visits Requ ested Visits Authorized [id number] Closed 09/07/2021 09/07/2022 1 1 MRI/CAT/PET Scan (Routine) - Closed Specialty Diagnoses / Procedures Referred By Contact Refer red To Contact Radiology Diagnoses Painful Total Joint Arthroplasty Initial (HCC) Alfredo Herrera [facility] Procedures CT Shoulder Left without IV Contrast O.P.A.-C. [address] [place] [address] Referral ID Status Reason Start Date Expiration Date Visits Requ ested Visits Authorized [id number] Closed 09/07/2021 09/07/2022 1 1 Reason for Visit Reason Comments Pre-visit Testing Orders L shldr - prev. TSA Encounter Details Date Type Department Care Team Description 09/07/2021 Clinical Communication Department of Jam, Pre- visit Testing Orthopedic Surgery Cyrus Souza M.D. Orders (L shldr - in [address] prev. TSA) [place], [place] [address] [place] [phone] [place], [place] [phone] (Work) [phone] Social History Tobacco Use Types Packs/Day Years [...] you attend druze or Patient refused 2021 anabaptist services? Do [...] Appointment Radiology Alfredo Herrera, Qamar. [address] [place] [address] 09/06/2022 Office Visit Orthopedic Surgery Cyrus Polk M.D. [address] [place] [address] documented as of this encounter Results US [...] PROCEDURES Mycobacterial Culture (09/25/2021 1:48 PM CDT) [facility] Method Time Signature Mycobacterial No growth 11/07/2021 DTL Culture after 42 1:03 AM MATCHBOOK MAKER days of incubation . Specimen Anatomical Collection Method Collection Time Receive d Time (Source) Location / / Volume Laterality Fluid (Synovial 09/25/2021 1:48 PM 2020 3:42 Fluid, Left CDT PM CDT Shoulder) Comment: Specimen Source Site: Fluid Narrative [facility] [place] - 11/07/2021 1:03 AM MATCHBOOK MAKER Fungal and Mycobacteria specimens plated for culture, volume inadequate for optimal recovery. Alfredo Kamara LAB MICROBIOLOGY - GENERAL O RDERABLES Performing Organization Address City/State/ZIP Code Phon e Number [facility] - [address] [place], [place] [address] [place] [id number] Fungal Culture, Routine (09/25/2021 1:48 PM CDT) [facility] Method Time Signature Fungal No growth 10/20/2021 [facility] Culture, after 24 1:01 AM MATCHBOOK MAKER Routine days of incubation. Specimen Anatomical Collection Method Collection Time Receive d Time (Source) Location / / Volume Laterality Fluid (Synovial 09/25/2021 1:48 PM 2020 3:42 Fluid, Left CDT PM CDT Shoulder) Comment: Specimen Source Site: Fluid Narrative [facility] [place] - 10/20/2021 1:01 AM MATCHBOOK MAKER Fungal and Mycobacteria specimens plated for culture, volume inadequate for optimal recovery. Alfredo Kamara LAB MICROBIOLOGY - GENERAL O RDBRADLEYBLES Performing Organization Address City/[facility]/ZIP Code Phon e Number [facility] - [address] Crystal Identification, Synovial Fluid (09/25/2021 1:48 PM CDT) [facility] Gantt Signature Crystal ID, None seen None seen 09/25/2021 [facility] Synovial Fl 4:56 PM CDT Reviewed by: Priti 09/25/2021 [facility] 4:56 PM CDT Specimen Anatomical Collection Method Collection Time Receive d Time (Source) Location / / Volume Laterality Fluid (Synovial 09/25/2021 1:48 PM 2020 3:27 Fluid, Left CDT PM CDT Shoulder) Alfredo Kamara LAB BODY FLUIDS AND STOOLS O RDERABLES Performing Organization Address City/State/ZIP Code Phon e Number [facility] - [address] (ABNORMAL) Broad Range Bacteria PCR+Sequencing (09/25/2021 1:48 PM CDT) Component Value Ref Test Analysis Performed At [facility] Method Time Signature Broad Range This test was developed and its performance characteri stics 10/06/2021 DTL Bacteria determined by [facility] in a manner consistent with 1:24 PM MATCHBOOK MAKER PCR+Sequencin CLIA requirements. This test has not been cleared or g approved by the U.S. Food and Drug Administration. (A) Broad Range STAPHYLOCOCCUS EPIDERMIDIS 10/06/2021 DTL Bacteria DNA detected 1:24 PM MATCHBOOK MAKER PCR+Sequencin (A) g Comment: Semi-Urgent Result. Semi-Urgent This is a semi-urgent result [facility] () [facility] Specimen Anatomical Collection Method Collection Time Receive d Time (Source) Location / / Volume Laterality Fluid (Synovial 09/25/2021 1:48 PM 2020 3:42 Fluid, Left CDT PM CDT Shoulder) Comment: Specimen Source Site: Fluid Narrative [facility] [place] - 10/06/2021 1:24 PM MATCHBOOK MAKER Fungal and Mycobacteria specimens plated for culture, volume inadequate for optimal recovery. Alfredo Kamara LAB MICROBIOLOGY - GENERAL O RDSONIA Performing Organization Address City/[facility] Phon e Number [facility] - [address] Bacterial Culture, Anaerobic + Susc (09/25/2021 1:48 PM CDT) [facility] Method Time Signature Bacterial No growth 10/09/2021 DTL Culture, after 14 7:41 AM MATCHBOOK MAKER Anaerobic + days of Susc incubation. Specimen Anatomical Collection Method Collection Time Receive d Time (Source) Location / / Volume Laterality Fluid (Synovial 09/25/2021 1:48 PM 2020 3:42 Fluid, Left CDT PM CDT Shoulder) Comment: Specimen Source Site: Fluid Narrative [facility] [place] - 10/09/2021 7:41 AM MATCHBOOK MAKER Fungal and Mycobacteria specimens plated for culture, volume inadequate for optimal recovery. Alfredo Kamara LAB MICROBIOLOGY - GENERAL O RDSONIA Performing Organization Address [facility] Phon e Number [facility] - [address] [place] [address] (ABNORMAL) Bacterial Culture, Aerobic + Susc (09/25/2021 1:48 PM CDT) Component Value Ref Test Analysis Performed At [facility] gist Range Method Time Signature Bacterial STAPHYLOCOCCUS EPIDERMIDIS 09/30/2021 DT L Culture, [facility] [place] 2:35 PM CDT Aerobic + (A) Susc Comment: Semi-Urgent Result. Semi-Urgent This is a semi-urgent result [facility] - ([place]) [facility] S Specimen Anatomical Collection Method Collection Time Receive d Time (Source) Location / / Volume Laterality Fluid (Synovial 09/25/2021 1:48 PM 2020 3:42 Fluid, Left CDT PM CDT Shoulder) Comment: Specimen Source Site: Fluid Narrative [facility] - [facility] [place] - 09/30/2021 2:35 PM CDT Fungal and [...] GENERAL O RDERABLES Performing Organization Address City/[facility]/ZIP [facility] [place] [place] Phon e Number [facility] - 200 [place], [place] [address] [facility] [place] [address] Laboratories-[address] Gram Stain (09/25/2021 1:48 PM CDT) [facility] gist Method Time Signature Gram Stain No organisms seen. 09/25/2021 DTL White blood cells, Many. 5:10 PM CDT Specimen Anatomical Collection Method Collection Time Receive d Time (Source) Location / / Volume Laterality Fluid (Synovial 09/25/2021 1:48 PM 2020 3:42 Fluid, Left CDT PM CDT Shoulder) Comment: Specimen Source Site: Fluid Alfredo Kamara LAB MICROBIOLOGY - GENERAL O RDERABLES Performing Organization Address City/[facility] Phon e Number [facility] - [address] [place], [place] [address] [place] [address] Shoulder Left without IV Contrast [...] (ABNORMAL) Sedimentation Rate (09/23/2021 9:07 AM CDT) [facility] Method Time Signature Sedimentation 31 (H) 2 - 22 09/23/2021 DTL Rate, B mm/h 10:46 AM CDT Specimen Anatomical Collection Method Collection Time Receive d Time (Source) Location / / Volume Laterality Blood (Blood, 09/23/2021 9:07 AM 09/23/20 9:30 Venous) CDT AM CDT Alfredo Kamara LAB BLOOD ADD-ON Performing Organization Address [facility] Phon e Number [facility] - [address] CRP (C-Reactive Protein) (09/23/2021 9:07 AM CDT) athologist Signature C-Reactive <3.0 <=8.0 mg/L 09/23/2021 DTL Protein (CRP), 10:30 AM CDT S Specimen Anatomical Collection Method Collection Time Receive d Time (Source) Location / / Volume Laterality Blood (Blood, 09/23/2021 9:07 AM 09/23/20 9:57 Venous) CDT AM CDT Alfredo Kamara LAB BLOOD ADD-ON Performing Organization Address [facility] Phon e Number [facility] - [address] (ABNORMAL) CBC with Differential, Blood (09/23/2021 9:07 AM CDT) [facility] Method Time Signature Hemoglobin 10.1 (L) 11.6 [...] [facility] - [address] [place], [place] [address] [facility] [place] [address] Laboratories-[facility] [...]
--- OUTSIDE RECORDS SUMMARY | 2022-08-17 06:58 | XMS_ITS | Encounter Summary ---
:1965 Author Organization [facility] Address [address] [place] [address] Care Team Providers Name Role Phone Unavailable Primary Care Provider Unavailable Reason for Referral Outpatient (Routine) - Closed Specialty Diagnoses / Procedures Referred By Contact Refer red To Contact Anesthesiology Diagnoses Preoperative Exam Painful Total Joint Arthroplasty Initial (HCC) [facility] Akbar-Araceli [address] [place] [phone] Referral ID Status Reason Start Date Expiration Date Visits Requ ested Visits Authorized [id number] Closed 10/13/2021 10/13/2022 1 1 UP [employer]CH[employer] 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 MACHINES Outpatient (Routine) - Closed Specialty Diagnoses / Procedures Referred By Contact Refer red To Contact Orthopedic Surgery Diagnoses Preoperative Exam Painful Total Joint Arthroplasty Initial ([facility]) Alfredo Herrera [facility] Le[place].Fernando-CBritton [address] [place] [address] Referral ID Status Reason Start Date Expiration Date Visits Requ ested Visits Authorized [id number] Closed 10/13/2021 10/13/2022 1 1 UP [employer]ES Reason for Visit Reason Comments pre op orders L verena Encounter Details Date Type Department Care Team Description 10/12/2021 Clinical Communication Department of Jam pre op orders ([facility] Orthopedic Surgery Lilian Alex) in [place] [address] [address] [place], [place] 200 [facility] [address] [place], [place] [phone] (Work) [phone] Social History Tobacco Use Types Packs/Day Years [...] and see me Surgery date: December 30 UP [employer]CH[employer]ACH[employer] documented in this encounter Plan of Treatment Upcoming Encounters Date Type Specialty Care Team Description 09/01/2022 Clinical Communication Admitting/Central Scheduling 09/06/2022 Appointment Radiology Alfredo Herrera O.P.A.-C. [address] [place] [phone] 09/06/2022 Office Visit Orthopedic Surgery Cyrus Polk M.D. [address] [place] [phone] Scheduled Referrals Name Type Priority Associated Diagnoses Order S [facility] Orthopedic Surgery Outpatient Referral Routine Preoperat lalo Exam Expected: Pre Op (clinic) Painful Total Joint 12/29 Arthroplasty Initial (Approx imate), (HCC) Expires: 10/12/2024 Preoperative Outpatient Referral Routine Preoperative Exam Expected: Evaluation NESHA Painful Total Joint 2021 consult (clinic) Arthroplasty Initial (Ap proximate), (HCC) Expires: 10/12/2024 documented as of this encounter Results (ABNORMAL) Basic Metabolic Panel (12/29/2021 11:34 AM SET UP MECH[employer] HEADING MACHINES) P athologist Signature Potassium, S 4.7 3.6 - 5.2 12/29/2021 DTL mmol/L 12:38 PM SET [employer] Sodium, S 143 135 - 145 12/29/2021 DTL mmol/L 12:38 PM SET [employer] Chloride, S 108 (H) 98 - 107 12/29/2021 DTL mmol/L 12:38 PM SET [employer] Bicarbonate, S 24 22 - 29 12/29/2021 DTL mmol/L 12:38 PM SET [employer] Anion Gap 11 7 - 15 12/29/2021 DTL 12:38 PM SET [employer] BUN (Blood Urea 15 6 - 21 12/29/2021 DTL Nitrogen), S mg/dL 12:38 PM SET [employer] Creatinine 0.83 0.59 - 12/29/2021 DTL 1.04 mg/dL 12:38 PM SET [employer] eGFR-Non 78 >=60 12/29/2021 DTL Black/ mL/min/BSA 12:38 PM SET [employer] Jamaican Comment: ----ADDITIONAL INFORMATION---- Estimated GFR calculated using the 2009 CKD_EPI creatinine equation. eGFR-Black/ 90 >=60 mL/min/BSA 2021 12:38 PM SET [employer]ACHINES DTL Comment: ----ADDITIONAL INFORMATION---- Estimated GFR calculated using the 2009 CKD_EPI creatinine equation. Calcium, Total, S 9.1 8.6 - 10.0 mg/dL 12/29/2021 12:3 8 PM SET UP [employer]ACH[employer]ES DTL Glucose, S 90 70 - 140 mg/dL 12/29/2021 12:38 PM SET [employer] DTL Specimen Anatomical Collection Method Collection Time Receive d Time (Source) Location / / Volume Laterality Blood (Blood, 12/29/2021 11:34 12/29/2021 Venous) AM SET UP [employer]ACHINES 12:13 PM SET UP [employer]ACH[employer]ES Alfredo Kamara LAB BLOOD ADD-ON Performing Organization Address City/State/ZIP Code Phon e Number [facility] - [address] [place] [phone] [facility] [place] [address] Laboratories-[address] Type and Screen (with reflex Antibody ID) (12/29/2021 11:34 AM SET UP ME[employer] HEADING MACHINES) [facility] gist Method Time Signature ABORh A Neg Not applicable 12/29/2021 ETRM 12:59 PM SET [employer] Antibody CANCELED 12/29/2021 ETRM Screen 12:59 PM SET [employer]ACH[employer] Comment: Result canceled by the theo marques Type & Screen Expiration 02/26/2022 23:59 12/29/19 22 12:59 PM SET [employer]ACH[employer]ES ETRM Testing Location [place] DEFAULT 12/29/2021 11:58 AM SET UP [employer]ACHINES ETRM Specimen Anatomical Collection Method Collection Time Receive d Time (Source) Location / / Volume Laterality Blood (Blood, 12/29/2021 11:34 12/29/2021 Venous) AM SET [employer] 11:58 AM SET UP [employer]ACH[employer]ES Alfredo Kamara LAB BLOOD BANK TEST ORDERABL ES Performing Organization Address City/State/ZIP Code Phon e Number [facility] - 200 [place], [place] [address] [facility] [place] [address] Laboratories-[facility] 200 [facility] (ABNORMAL) CBC with Differential, Blood (12/29/2021 11:34 AM SET UP ME[employer] HEAD[employer] MACHINES) [facility] Method Time Signature Hemoglobin 11.2 (L) 11.6 - 12/29/2021 DTL 15.0 g/dL 12:02 PM SET [employer] Hematocrit 34.1 (L) 35.5 - 12/29/2021 DTL 44.9 % 12:02 PM SET [employer] Erythrocytes 4.04 3.92 - 12/29/2021 DTL 5.13 12:02 PM SET [employer] x10(12)/L MCV 84.4 78.2 - 12/29/2021 DTL 97.9 fL 12:02 PM SET [employer] RBC Distrib Width 20.2 (H) 12.2 - 12/29/2021 DTL 16.1 % 12:02 PM SET [employer] Platelet Count 324 157 - 371 12/29/2021 DTL x10(9)/L 12:02 PM SET [employer] Leukocytes 5.1 3.4 - 9.6 12/29/2021 DTL x10(9)/L 12:02 PM SET [employer] Neutrophils 3.08 1.56 - 12/29/2021 DTL 6.45 12:02 PM SET [employer] x10(9)/L Lymphocytes 1.39 0.95 - 12/29/2021 DTL 3.07 12:02 PM SET [employer] x10(9)/L Monocytes 0.43 0.26 - 12/29/2021 DTL 0.81 12:02 PM SET UP [employer] x10(9)/L Eosinophils 0.17 0.03 - 12/29/2021 DTL 0.48 12:02 PM SET [employer] x10(9)/L Basophils 0.05 0.01 - 12/29/2021 DTL 0.08 12:02 PM SET UP [employer]ACH[employer]ES x10(9)/L Specimen Anatomical Collection Method Collection Time Receive d Time (Source) Location / / Volume Laterality Blood (Blood, 12/29/2021 11:34 12/29/2021 Venous) AM SET [employer] 11:54 AM SET UP [employer] HEAD[employer]ACH[employer]ES Alfredo Kamara LAB BLOOD ADD-ON Performing Organization Address City/[facility] Phon e Number [facility] - [address] [address] Laboratories-[address] SARS Coronavirus 2, Molecular Detection, PCR, Varies Asymptomatic (12/29/2021 11:11 AM SET UP ME[employer] HEAD[employer]ACHINES) [facility] Method Time Signature COVID-19, Swab, 12/29/2021 DTL PCR, Source Nasopharynx 4:19 PM SET UP [employer]ACH[employer]ES COVID-19, Undetected Undetected 12/29/2021 DTL PCR, Result 4:19 PM SET [employer]ACH[employer] Comment: SARS-CoV-2 RNA absent. This result does not rule out COVID-19 in the patient, as the sensitivity of the test depends o n the timing of the specimen collection and quality of the specimen. Result should be correlated with patient's history and clinical presentat ion. ----ADDITIONAL INFORMATION---- This RT-PCR test using the Stroho SARS-Co V-2 Assay ( [employer].) performed on the Stroho Two Module System has received Emergency Use Authorization (EUA) by the U.S. Food and Drug Administration, and is modified from the marriage and family social worker's instructions with a bridging study. Performance characteristics were verifie d by [facility] in a manner consistent with CLIA requirements. Visit the CDC website: https://www.cdc.g ov/coronavirus/ for the most recent guidelines on Hopikns virus testing. Fact Sheet for Healthcare Providers: https://www.fda.gov/media/424892/downloa d Fact Sheet for Patients: https://www.fda.gov/media/918389/downloa d Specimen Anatomical Collection Method Collection Time Receive d Time (Source) Location / / Volume Laterality Varies 12/29/2021 11:11 12/29/2021 (Nasopharynx) AM SET UP [employer] HEAD[employer] MACHINES 12:03 PM SET UP [employer] HEAD[employer] MACHINES Alfredo Kamara LAB MICROBIOLOGY - GENERAL O RDERABLES Performing Organization Address City/[facility] Phon e Number [facility] - 200 [place], [place] [address] [facility] [place] [address] Laboratories-[facility] [address] DX Shoulder Left 2+ Views (12/29/2021 10:30 AM SET UP MECH[employer] HEADING MACHINES) Anatomical Region Laterality Modality Upper Extremity, Shoulder, Musculoskeletal RST LOS, Left Digital Radiography Musculoskeletal ARZ LOS, Muskuloskeletal FLA LOS Specimen (Source) Anatomical Collection Method Collection Time Re ceived Time Location / / Volume Laterality 12/29/2021 10:53 AM SET UP [employer]ACH[employer]ES Impressions 12/29/2021 10:57 AM SET UP [employer]ACH[employer]ES Demineralization. Left shoulder arthroplasty revision to a reverse TSA. Developing lucency about the glenoi d component screws when compared back to 11/13/20, compatible with loosening. Pre sumed distal clavicle resection. Incompletely imaged instrumented spinal fusion from the upper cervical spine to the upper thoracic spine. Spinal cord st imulator. At least one old healed left posterior rib fracture. Narrative 12/29/2021 10:57 AM SET UP MECH[employer] MACHINES EXAM: ??DX SHOULDER LEFT 2+ VIEWS Procedure [...]
--- OUTSIDE RECORDS SUMMARY | 2022-08-17 06:58 | XMS_ITS | Encounter Summary ---
:1965 Author Organization [facility] Address [address] [place] [address] Care Team Providers Name Role Phone Unavailable Primary Care Provider Unavailable Reason for Visit Physical Therapy (Routine) - Closed Specialty Diagnoses / Procedures Referred By Contact Refer red To Contact Diagnoses Dissociation Scapholunate Left Dario Noel M.D. [facility] Procedures PT or OT eval and treat (first available) [address] [place] [phone] Referral ID Status Reason Start Date Expiration Date Visits Requ ested Visits Authorized [id number] Closed 06/08/2021 06/08/2022 99 99 Encounter Details Date Type Department Care Team Description 06/08/2021 Clinical Support Department of Physical German Noel M.D. [address] [place] [phone] Pain Wrist Left (Primary Dx); Medicine and Veena Quevedo M.S., C.H.T., O.T. [address] [place] [phone] Dissociation Scapholunate Left Rehabilitation in [place], [place] [address] [place] [phone] Social History Tobacco Use Types Packs/Day [...] you attend episcopalian or Patient refused 2021 muslim services? Do [...] (HCC) ??? Nicotine Dependence Unspecified ??? Other Pediatric Medical Assistant Current Drug Therapy Past Surgical History: Procedure [...] the following home instruction handouts: Splint Receipt [id number]. Active Hand Exercises (Six Pack) [id number]. Active Wrist Exercises [id number] Assessment Clinical Impression: The patient tolerated the [...] Appointment Radiology Alfredo Herrera O.P.A.-C. [address] [place] [address] 09/06/2022 Office Visit Orthopedic Surgery Cyrus Polk M.D. [address] [place] [address] documented as of this encounter Visit Diagnoses Diagnosis Pain Wrist Left - Primary Dissociation Scapholunate Left documented in this encounter Additional Health Concerns Assessment Noted Time PHQ-9 Depression Total Score: 16 02/11/2021 12:00 AM C DT documented as of this encounter
--- OUTSIDE RECORDS SUMMARY | 2022-08-17 06:58 | XMS_ITS | Encounter Summary ---
:1965 Author Organization [facility] Address [address] [place] [address] Care Team Providers Name Role Phone Unavailable Primary Care Provider Unavailable Reason for Visit Reason Comments Nicotine Dependence Encounter Details Date Type Department Care Team Description 07/16/2021 Clinical Communication Department of [facility], Carolyn Mccarthy cotine Dependence Nicotine M.S., Dependence, C.T.T.S., [facility] L.P.C.C. in [address] [place] [phone] [place], [place] [phone] (Work) [phone] Social History Tobacco Use Types Packs/Day Years [...] you attend taoism or Patient refused 2021 jew services? Do [...] Appointment Radiology Alfredo Herrera O.PBrittonABritton-C. [address] [place] [address] 09/06/2022 Office Visit Orthopedic Surgery Cyrus Polk M.D. [address] [place] [phone] documented as of this encounter Visit Diagnoses Not on filedocumented in this encounter Additional Health Concerns Assessment Noted Time PHQ-9 Depression Total Score: 16 02/11/2021 12:00 AM C DT documented as of this encounter
--- OUTSIDE RECORDS SUMMARY | 2022-08-17 06:58 | XMS_ITS | Encounter Summary ---
:1965 Author Organization [facility] Address [address] [place] [address] Care Team Providers Name Role Phone Unavailable Primary Care Provider Unavailable Reason for Visit Reason Comments Communication results Encounter Details Date Type Department Care Team Description 10/05/2021 Clinical Communication Department of Rossy Polk Orthopedic Surgery Cyrus Souza M.D. (results) in [address] 200 [facility] [address] [phone] Social History Tobacco Use Types Packs/Day Years [...] you attend zoroastrianism or Patient refused 2021 amish services? Do [...] Cyrus Polk M.D. CT CT Job ID: [id number] [employer] documented in this encounter Miscellaneous Notes Telephone Encounter - Sosa Laughlin - 10/05/2021 3:17 PM CST Please list patient for 12/30/21. Thank you [employer] Telephone Encounter - Cyrus Polk M.D. - 10/05/2021 11:37 AM CST Dx: left infected shoulder arthroplasty Procedure: left resection shoulder arthroplasty UE82, NESHA, and see me Surgery date: December 30 Thank you [employer]SEMBLER Telephone Encounter - Radha Suh - 10/05/2021 11:18 AM CST Ms. Mosquera calls for results of labs, CT and aspiration results ( She is disappointment no one has reached out to her and that she had to call for these) Please call her with results to date [employer] documented in this encounter Plan of Treatment Upcoming Encounters Date Type Specialty Care Team Description 09/01/2022 Clinical Communication Admitting/Central Scheduling 09/06/2022 Appointment Radiology Alfredo Herrera O.P.A.-C. [address] [place] [address] 09/06/2022 Office Visit Orthopedic Surgery Cyrus Polk M.D. [address] [place] [address] documented as of this encounter Visit Diagnoses Not on filedocumented in this encounter Additional Health Concerns Assessment Noted Time PHQ-9 Depression Total Score: 16 02/11/2021 12:00 AM C DT documented as of this encounter
--- OUTSIDE RECORDS SUMMARY | 2022-08-17 06:58 | XMS_ITS | Encounter Summary ---
:1965 Author Organization [facility] Address [address] [place] [address] Care Team Providers Name Role Phone Unavailable Primary Care Provider Unavailable Reason for Visit Reason Comments Nicotine Dependence Encounter Details Date Type Department Care Team Description 07/24/2021 Clinical Communication Department of [facility], Carolyn Mccarthy cotine Dependence Nicotine M.S., Dependence, C.T.T.S., [facility], L.P.C.C. in [address] [place] [address] [place], [place] [phone] (Work) [phone] Social History Tobacco Use Types Packs/Day Years [...] Appointment Radiology Alfredo Herrera O.PBrittonABritton-C. [address] [place] [address] 09/06/2022 Office Visit Orthopedic Surgery Cyrus Polk M.D. [address] [place] [address] documented as of this encounter Visit Diagnoses Not on filedocumented in this encounter Additional Health Concerns Assessment Noted Time PHQ-9 Depression Total Score: 16 02/11/2021 12:00 AM C DT documented as of this encounter
--- OUTSIDE RECORDS SUMMARY | 2022-08-17 06:58 | XMS_ITS | Encounter Summary ---
:1965 Author Organization [facility] Address [address] [place] [address] Care Team Providers Name Role Phone Unavailable Primary Care Provider Unavailable Reason for Visit Reason Comments Med Refill Encounter Details Date Type Department Care Team Description 06/04/2021 Refill Department of Orthopedic Pulos, Dario Alejo M.D. Med Refill Surgery in [address] [phone] [place] [address] [place] [address] [phone] Social History Tobacco Use Types Packs/Day Years [...] Appointment Radiology Alfredo Herrera O.PBrittonAOmar [address] [place] [address] 09/06/2022 Office Visit Orthopedic Surgery Cyrus Polk M.D. [address] [place] [address] documented as of this encounter Visit Diagnoses Not on filedocumented in this encounter Additional Health Concerns Assessment Noted Time PHQ-9 Depression Total Score: 16 02/11/2021 12:00 AM C DT documented as of this encounter
--- OUTSIDE RECORDS SUMMARY | 2022-08-17 06:59 | XMS_ITS | Encounter Summary ---
:1965 Author Organization [facility] Address [address] [place] [address] Care Team Providers Name Role Phone Unavailable Primary Care Provider Unavailable Reason for Referral MRI/CAT/PET Scan (Routine) - Closed Specialty Diagnoses / Procedures Referred By Contact Refer red To Contact Radiology Diagnoses Pain Wrist Left Michael Noble Jr., [facility] Procedures MR Wrist Left without IV Contrast P.A.-C. [address] [place] [phone] Referral ID Status Reason Start Date Expiration Date Visits Requ ested Visits Authorized [id number] Closed 03/17/2021 03/17/2022 1 1 Reason for Visit MRI/CAT/PET Scan (Routine) - Closed Specialty Diagnoses / Procedures Referred By Contact Refer red To Contact Radiology Diagnoses Pain Wrist Left Michael Noble Jr., [facility] Procedures MR Wrist Left without IV Contrast P.A.-C. [address] [place] [phone] Referral ID Status Reason Start Date Expiration Date Visits Requ ested Visits Authorized [id number] Closed 03/17/2021 03/17/2022 1 1 Encounter Details Date Type Department Care Team Description 03/24/2021 Hospital Encounter Department of Michael Noble Wrist Left Radiology, Hema Perez Jr.ABritton-CBritton [facility], in [address] [place] [address] [place], [place] [phone] [place], [place] [phone] (Work) [phone] Social History Tobacco Use Types Packs/Day Years [...] you attend evangelical or Patient refused 2021 zoroastrianism services? Do [...] Appointment Radiology Alfredo Herrera O.P.A.-C. [address] [place] [address] 09/06/2022 Office Visit Orthopedic Surgery Cyrus Polk M.D. [address] [place] [address] documented as of this encounter Procedures Procedure [...]
--- OUTSIDE RECORDS SUMMARY | 2022-08-17 06:59 | XMS_ITS | Encounter Summary ---
:1965 Author Organization [facility] Address 200 [place] [address] Care Team Providers Name Role Phone Unavailable Primary Care Provider Unavailable Reason for Referral Outpatient (Routine) - Closed Specialty Diagnoses / Procedures Referred By Contact Refer red To Contact Neurological Surgery Jeannette Cote Roches [facility] Lilian 200 [place] [address] Referral ID Status Reason Start Date Expiration Date Visits Requ ested Visits Authorized [id number] Closed 02/17/2021 02/17/2022 1 1 Scheduling Instructions Please schedule with Chief A Neurosurger y Service (Dr. Suhail Benjamin). 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 [facility] Procedures CT Head Neck Angiogram with IV Contrast 200 [place] [address] Referral ID Status Reason Start Date Expiration Date Visits Requ ested Visits Authorized [id number] Closed 02/17/2021 02/17/2022 1 1 Encounter Details Date Type Department Care Team Description 02/17/2021 Orders Only Department of Jeannette Cote Cerebral Infarction Neurologic Surgery jimmy Souza M.D. Due To Embolism Right [place], [place] [address] [facility] Vertebral Artery (HCC) [address] [place], [place] (Primary Dx) [place] [address] [phone] Social History Tobacco Use Types Packs/Day Years [...] you attend methodist or Patient refused 2021 mormonism services? Do [...] Appointment Radiology Alfredo Herrera O.P.A.-C. [address] [place] [address] 09/06/2022 Office Visit Orthopedic Surgery Cyrus Polk M.D. 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 Otherwise [place] is intact. 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 Otherwise [place] is intact. Dolichoectasia of [...]
--- OUTSIDE RECORDS SUMMARY | 2022-08-17 06:59 | XMS_ITS | Encounter Summary ---
:1965 Author Organization [facility] Address [address] [place] [address] Care Team Providers Name Role Phone Unavailable Primary Care Provider Unavailable Reason for Referral Outpatient (Routine) - Closed Specialty Diagnoses / Procedures Referred By Contact Refer red To Contact Diagnoses Dissociation Scapholunate Left Michael Downs M.D. [facility] Procedures ORS Cast Room Visit [address] [place] [phone] Referral ID Status Reason Start Date Expiration Date Visits Requ ested Visits Authorized [id number] Closed 03/24/2021 03/24/2022 1 1 Reason for Visit Reason Comments Follow-up Outpatient (Routine) - Closed Specialty Diagnoses / Procedures Referred By Contact Refer red To Contact Diagnoses Dissociation Scapholunate Left Michael Downs M.D. [facility] Procedures ORS Cast Room Visit [address] [place] [phone] Referral ID Status Reason Start Date Expiration Date Visits Requ ested Visits Authorized [id number] Closed 03/24/2021 03/24/2022 1 1 Encounter Details Date Type Department Care Team Description 03/24/2021 Hospital Encounter Department of Paul Downs M.D. [address] [place] [phone] Dissociation Orthopedic Surgery Dario Noel M.D. [address] [place] [phone] Scapkimiunate Left in [place], [place] [address] [place] [address] Social History Tobacco Use Types Packs/Day Years [...] you attend zoroastrianism or Patient refused 2021 denominational services? Do [...] with 70/60 degrees on the contralateral side. Agricultural Education Professor strength of 10 kg compared to 23 [...] short-arm cast was applied by the castroom sewing pattern layout technician - The patient is nonweightbearing bearing [...] 09/06/2022 Appointment Radiology Alfredo Herrera O.P.A.-C. [address] [place] [phone] 09/06/2022 Office Visit Orthopedic Surgery Cyrus Polk M.D. [address] [place] [phone] documented as of this encounter Procedures Procedure [...] 70/60 degrees on the contr alateral side. ??Agricultural Education Professor strength of 10 kg compared to 23 [...] cast was applied by the kevin stroom sewing pattern layout technician - The patient is nonweightbearing bearin [...]
--- OUTSIDE RECORDS SUMMARY | 2022-08-17 06:59 | XMS_ITS | Encounter Summary ---
:1965 Author Organization [facility] Address [address] [place] [address] Care Team Providers Name Role Phone Unavailable Primary Care Provider Unavailable Reason for Visit Reason Comments Post Hospital Follow-up Encounter Details Date Type Department Care Team Description 02/19/2021 Clinical Communication Department of [facility], [facility] Hospital Neurology in Monica Alvarado R.N. Follow-up [place], [place] [address] [place] [address] Social History Tobacco Use Types [...] you attend baptism or Patient refused 2021 quaker services? Do [...] reports she has not yet picked up [id number] ASA daily and 80 mg Atorvastatin at [...] Appointment Radiology Alfredo Herrera O.P.AOmar [address] [place] [address] 09/06/2022 Office Visit Orthopedic Surgery Cyrus Polk M.D. [address] [place] [address] documented as of this encounter Visit Diagnoses Not on filedocumented in this encounter Additional Health Concerns Assessment Noted Time PHQ-9 Depression Total Score: 16 02/11/2021 12:00 AM C DT documented as of this encounter
--- OUTSIDE RECORDS SUMMARY | 2022-08-17 06:59 | XMS_ITS | Encounter Summary ---
:1965 Author Organization [facility] Address [address] [place] [address] Care Team Providers Name Role Phone Unavailable Primary Care Provider Unavailable Reason for Visit Reason Comments Communication Encounter Details Date Type Department Care Team Description 02/19/2021 Clinical Communication Department of Rossy Benjamin Neurologic Surgery in [place], [place] Ph.D. [address] [place] [address] 200 [place] [phone] [phone] Social History Tobacco Use Types Packs/Day Years [...] attend roman catholic or Patient refused 2021 cheondoism services? [...] Appointment Radiology Alfredo Herrera O.P.A.-C. [address] [place] [phone] 09/06/2022 Office Visit Orthopedic Surgery Cyrus Polk M.D. [address] [place] [phone] documented as of this encounter Visit Diagnoses Not on filedocumented in this encounter Additional Health Concerns Assessment Noted Time PHQ-9 Depression Total Score: 16 02/11/2021 12:00 AM C DT documented as of this encounter
--- OUTSIDE RECORDS SUMMARY | 2022-08-17 06:59 | XMS_ITS | Encounter Summary ---
:1965 Author Organization [facility] Address [address] [place] [address] Care Team Providers Name Role Phone Unavailable Primary Care Provider Unavailable Reason for Visit Reason Comments Vertigo and vision problems [facility] Encounter Details Date Type Department Care Team Description 02/18/2021 Clinical Communication Department of Fazal, Robert mendosa and vision Neurology in [place] Celaya problems ([facility]) [place], [place] [address] [place], [place] [address] [place] [phone] [place], [place] [phone] (Work) [phone] Social History Tobacco Use Types Packs/Day Years [...] you attend scientology or Patient refused 2021 confucianist services? Do [...] this encounter Miscellaneous Notes Telephone Encounter - Moniac Shah R.N. - 02/19/2021 11:03 AM CDT [...] 09/06/2022 Appointment Radiology Alfredo Herrera O.P.A.-C. 200 [place] [address] 09/06/2022 Office Visit Orthopedic Surgery Cyrus Polk M.D. 200 [place] [address] documented as of this encounter Visit Diagnoses Not on filedocumented in this encounter Additional Health Concerns Assessment Noted Time PHQ-9 Depression Total Score: 16 02/11/2021 12:00 AM C DT documented as of this encounter
--- OUTSIDE RECORDS SUMMARY | 2022-08-17 06:59 | XMS_ITS | Encounter Summary ---
:1965 Author Organization [facility] Address [address] [place] [address] Care Team Providers Name Role Phone Unavailable Primary Care Provider Unavailable Encounter Details Date Type Department Care Team Description 03/11/2021 Clinical Communication Department of Ana Segura Orthopedic Surgery in [place], [place] [address] [place] [phone] Social History Tobacco Use Types Packs/Day Years [...] you attend bahai or Patient refused 2021 tenriism services? Do [...] Patient would like to be seen in [place]. Referral line to [place] provided to angela batista. Patient aware she will call for apptointment. Telephone Encounter - Jerica Gee L.P.N. - 03/13/2021 9:09 AM CDT Left message to call clinic back. Needs to see a hand surgeon. Telephone Encounter - Christal Abraham L.P.N. - 03/12/2021 3:21 PM CDT Left message for patient to call back. She can contact [place], [place], or sarath frye if she choses. Telephone Encounter - Clemente Schofield M.D. - 03/12/2021 11:23 AM CDT She should see a hand surgeon Telephone Encounter - Esperanza Stratton - 03/11/2021 9:33 AM CDT Reason for Communication: Patient is calling in stating that she is being referred to be seen for a brake in her LEFT hand. Patient is stating that [facility] in [facility] is requesting for patient to be seen by our orthopedic department. Patient is wanting to be seen in [place]. Unable to find any encounters regarding a [...] Appointment Radiology Alfredo Herrera O.P.A.-C. [address] [place] [address] 09/06/2022 Office Visit Orthopedic Surgery Cyrus Polk M.D. [address] [place] [address] documented as of this encounter Visit Diagnoses Not on filedocumented in this encounter Additional Health Concerns Assessment Noted Time PHQ-9 Depression Total Score: 16 02/11/2021 12:00 AM C DT documented as of this encounter
--- OUTSIDE RECORDS SUMMARY | 2022-08-17 06:59 | XMS_ITS | Encounter Summary ---
:1965 Author Organization [facility] Address [address] [place] [address] Care Team Providers Name Role Phone Unavailable Primary Care Provider Unavailable Reason for Visit Reason Comments Pre-visit Intake Encounter Details Date Type Department Care Team Description 04/15/2021 Clinical Communication Department of Robert Diehl e-visit Intake Neurology in [place], [facility] [place], [place] [address] [place] [phone] [place], [place] [phone] (Work) [phone] Social History Tobacco Use Types Packs/Day Years [...] Appointment Radiology Alfredo Herrera O.PBrittonAOmar [address] [place] [address] 09/06/2022 Office Visit Orthopedic Surgery Cyrus Polk M.D. [address] [place] [address] documented as of this encounter Visit Diagnoses Not on filedocumented in this encounter Additional Health Concerns Assessment Noted Time PHQ-9 Depression Total Score: 16 02/11/2021 12:00 AM C DT documented as of this encounter
--- OUTSIDE RECORDS SUMMARY | 2022-08-17 06:59 | XMS_ITS | Encounter Summary ---
:1965 Author Organization [facility] Address [address] [place] [address] Care Team Providers Name Role Phone Unavailable Primary Care Provider Unavailable Reason for Referral Outpatient (Routine) - Closed Specialty Diagnoses / Procedures Referred By Contact Refer red To Contact Orthopedic Surgery Michael Noble [facility] , P.A.-C. [address] [place] [phone] Referral ID Status Reason Start Date Expiration Date Visits Requ ested Visits Authorized [id number] Closed 05/04/2021 05/04/2022 1 1 Scheduling Instructions Pulos Encounter Details Date Type Department Care Team Description 05/04/2021 Orders Only Department of Orthopedic Mirna Noble Surgery in [facility] , P.A.- C. [address] [place] [phone] (Wo rk) Social History Tobacco Use Types [...] you attend yarsani or Patient refused 2021 catholic services? Do you belong to any clubs or No 05/17/2022 organizations such as yarsani groups, unions, [employer]ascular [employer]s or athletic groups, or school groups? How [...] 09/06/2022 Appointment Radiology Alfredo Herrera O.P.A.-C. 200 [place] [phone] 09/06/2022 Office Visit Orthopedic Surgery Cyrus Polk M.D. 200 [place] [phone] Scheduled Referrals Name Type Priority Associated Order [...]
--- OUTSIDE RECORDS SUMMARY | 2022-08-17 06:59 | XMS_ITS | Encounter Summary ---
:1965 Author Organization [facility] Address [address] [place] [address] Care Team Providers Name Role Phone Unavailable Primary Care Provider Unavailable Reason for Referral Outpatient (Routine) - Closed Specialty Diagnoses / Procedures Referred By Contact Refer red To Contact Diagnoses Dissociation Scapholunate Left Michael Downs M.D. [facility] Procedures ORS Cast Room Visit [address] [place] [address] Referral ID Status Reason Start Date Expiration Date Visits Requ ested Visits Authorized [id number] Closed 03/24/2021 03/24/2022 1 1 Outpatient (Routine) - Closed Specialty Diagnoses / Procedures Referred By Contact Refer red To Contact Diagnoses Dissociation Scapholunate Left Michael Downs M.D. [facility] Procedures ORS Cast Room Visit [address] [place] [address] Referral ID Status Reason Start Date Expiration Date Visits Requ ested Visits Authorized [id number] Closed 03/24/2021 03/24/2022 1 1 Reason for Visit Reason Comments Pain Appointment Request (Routine) - Closed Specialty Diagnoses / Procedures Referred By Contact Refer red To Contact Orthopedic Surgery Diagnoses Fracture Wrist Hand Closed Initial Referral ID Status Reason Start Date Expiration Date Visits Requ ested Visits Authorized [id number] Closed 03/16/2021 03/16/2022 1 1 Encounter Details Date Type Department Care Team Description 03/24/2021 Admin Visit Department of Dario Noel Dissocia tion Orthopedic Surgery in M.D. Scapholunate Left [place], [place] 200 [facility] (Primary Dx) [address] [place] [phone] [phone] Social History Tobacco Use Types Packs/Day Years [...] you attend methodist or Patient refused 2021 buddhism services? Do [...] Appointment Radiology Alfredo Herrera O.P.A.-C. [address] [place] [address] 09/06/2022 Office Visit Orthopedic Surgery Cyrus Polk M.D. [address] [place] [phone] Scheduled Orders Name Type Priority Associated Diagnoses [...] 70/60 degrees on the contr alateral side. ??Rrts strength of 10 kg compared to 23 [...] cast was applied by the kevin garcia physical therapy technician - The patient is nonweightbearing bearin [...]
--- OUTSIDE RECORDS SUMMARY | 2022-08-17 06:59 | XMS_ITS | Encounter Summary ---
:1965 Author Organization [facility] Address [address] [place] [address] Care Team Providers Name Role Phone Unavailable Primary Care Provider Unavailable Reason for Referral Outpatient (Routine) - Closed Specialty Diagnoses / Procedures Referred By Contact Refer red To Contact Diagnoses Dissociation Scapholunate Left Michael Downs M.D. [facility] Procedures ORS Cast Room Visit [address] [place] [phone] Referral ID Status Reason Start Date Expiration Date Visits Requ ested Visits Authorized [id number] Closed 05/08/2021 05/08/2022 1 1 Reason for Visit Reason Comments Follow-up Outpatient (Routine) - Closed Specialty Diagnoses / Procedures Referred By Contact Refer red To Contact Diagnoses Dissociation Scapholunate Left Michael Downs M.D. [facility] Procedures ORS Cast Room Visit [address] [place] [phone] Referral ID Status Reason Start Date Expiration Date Visits Requ ested Visits Authorized [id number] Closed 05/08/2021 05/08/2022 1 1 Encounter Details Date Type Department Care Team Description 05/08/2021 Hospital Encounter Department of Paul Downs M.D. [address] [place] [phone] Dissociation Orthopedic Surgery Dario Noel M.D. [address] [place] [phone] Scapkimiunate Left in [place], [place] [address] [place] [address] Social History Tobacco Use Types Packs/Day Years [...] you attend restorationism or Patient refused 2021 christian services? Do [...] short-arm cast was applied by the castroom automotive glass technician - The patient is nonweightbearing bearing [...] 09/06/2022 Appointment Radiology Alfredo Herrera O.P.A.-CBritton [address] [place] [phone] 09/06/2022 Office Visit Orthopedic Surgery Cyrus Polk M.D. [address] [place] [address] Scheduled Orders Name Type Priority Associated Diagnoses [...]
--- OUTSIDE RECORDS SUMMARY | 2022-08-17 06:59 | XMS_ITS | Encounter Summary ---
:1965 Author Organization [facility] Address [address] [place] [address] Care Team Providers Name Role Phone Unavailable Primary Care Provider Unavailable Reason for Visit Reason Comments Pre-scheduling Questionnaire Hand Pre-Scheduling Qu estionnaire Encounter Details Date Type Department Care Team Description 03/16/2021 Clinical Department of Prescheduling, Pre-scheduli ng Communication Orthopedic Surgery Provider Question elizabeth ( in [place], Hand Pre-Sched uling [place] Questionnaire) [address] [place] [phone] Social History Tobacco Use Types Packs/Day Years [...] you attend voodoo or Patient refused 2021 holiness services? Do [...] 09/06/2022 Appointment Radiology Alfredo Herrera, CliftonPBrittonABritton-Araceli [address] [place] [phone] 09/06/2022 Office Visit Orthopedic Surgery Cyrus Polk M.D. [address] [place] [address] documented as of this encounter Visit Diagnoses Not on filedocumented in this encounter Additional Health Concerns Assessment Noted Time PHQ-9 Depression Total Score: 16 02/11/2021 12:00 AM C DT documented as of this encounter
--- OUTSIDE RECORDS SUMMARY | 2022-08-17 06:59 | XMS_ITS | Encounter Summary ---
:1965 Author Organization [facility] Address [address] [place] [address] Care Team Providers Name Role Phone Unavailable Primary Care Provider Unavailable Encounter Details Date Type Department Care Team Description 05/04/2021 Clinical Communication Department of Dario Noel , Orthopedic Surgery in [place], [place] [address] [place] [address] 200 [place] [phone] Social History Tobacco Use Types Packs/Day Years [...] you attend christianity or Patient refused 2021 amish services? Do [...] Appointment Radiology Alfredo Herrera O.P.A.-C. [address] [place] [address] 09/06/2022 Office Visit Orthopedic Surgery Cyrus Polk M.D. [address] [place] [address] documented as of this encounter Visit Diagnoses Not on filedocumented in this encounter Additional Health Concerns Assessment Noted Time PHQ-9 Depression Total Score: 16 02/11/2021 12:00 AM C DT documented as of this encounter
--- OUTSIDE RECORDS SUMMARY | 2022-08-17 06:59 | XMS_ITS | Encounter Summary ---
:1965 Author Organization [facility] Address [address] [place] [address] Care Team Providers Name Role Phone Unavailable Primary Care Provider Unavailable Reason for Visit Reason Comments Pre-visit Intake Encounter Details Date Type Department Care Team Description 03/11/2021 Clinical Communication Department of Sourav Pre- visit Intake Neurologic Surgery Lilian Jang, in [place], Ph.D. [place] [address] [place] [address] [phone] Social History Tobacco Use Types Packs/Day Years [...] you attend restorationism or Patient refused 2021 scientology services? Do [...] Appointment Radiology Alfredo Herrera O.P.A.-CBritton [address] [place] [address] 09/06/2022 Office Visit Orthopedic Surgery Cyrus Polk M.D. [address] [place] [address] documented as of this encounter Visit Diagnoses Not on filedocumented in this encounter Additional Health Concerns Assessment Noted Time PHQ-9 Depression Total Score: 16 02/11/2021 12:00 AM C DT documented as of this encounter
--- OUTSIDE RECORDS SUMMARY | 2022-08-17 06:59 | XMS_ITS | Encounter Summary ---
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 [facility] Procedures CT Head Neck Angiogram with IV Contrast 200 [place], [place] [address] Referral ID Status Reason Start Date Expiration Date Visits Requ ested Visits Authorized [id number] Closed 02/17/2021 02/17/2022 1 1 Encounter Details Date Type Department Care Team Description 03/12/2021 Hospital Encounter Department of Jeannette Cote ebral Infarction Radiology, Severiano Souza M.D. Due To Embolism Building, in 200 [facility] Vertebral [place], [place] Artery (HCC) [place] [address] [phone] [place], [place] (Work) [phone] Social History Tobacco Use Types Packs/Day Years [...] you attend taoism or Patient refused 2021 sabianist services? Do [...] Appointment Radiology Alfredo Herrera O.PBrittonAOmar [address] [place] [phone] 09/06/2022 Office Visit Orthopedic Surgery Cyrus Polk M.D. [address] [place] [phone] documented as of this encounter Procedures Procedure [...] ane urysms. 3. 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 Otherwise [place] is intact. 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 Otherwise [place] is intact. Dolichoectasia of [...] ane urysms. 3. 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 Jeannette NIELSON [...]
--- OUTSIDE RECORDS SUMMARY | 2022-08-17 06:59 | XMS_ITS | Encounter Summary ---
:1965 Author Organization [facility] Address [address] [place] [address] Care Team Providers Name Role Phone Unavailable Primary Care Provider Unavailable Reason for Referral Outpatient (Routine) - Closed Specialty Diagnoses / Procedures Referred By Contact Refer red To Contact Diagnoses Dissociation Scapholunate Left Michael Downs M.D. [facility] Procedures ORS Cast Room Visit [address] [place] [phone] Referral ID Status Reason Start Date Expiration Date Visits Requ ested Visits Authorized [id number] Closed 05/08/2021 05/08/2022 1 1 Outpatient (Routine) - Closed Specialty Diagnoses / Procedures Referred By Contact Refer red To Contact Diagnoses Dissociation Scapholunate Left Michael Downs M.D. [facility] Procedures ORS Cast Room Visit [address] [place] [phone] Referral ID Status Reason Start Date Expiration Date Visits Requ ested Visits Authorized [id number] Closed 05/08/2021 05/08/2022 1 1 Reason for Visit Reason Onset Date Comments Left Without Being Seen 07/17/2021 Outpatient (Routine) - Closed Specialty Diagnoses / Procedures Referred By Contact Refer red To Contact Orthopedic Surgery [facility] [address] [place] [phone] Referral ID Status Reason Start Date Expiration Date Visits Requ ested Visits Authorized [id number] Closed 05/04/2021 05/04/2022 1 1 Encounter Details Date Type Department Care Team Description 05/08/2021 Office Visit Department of Pullazaro, Dario Alejo, Dissocia tion Scapholunate Left (Primary Dx); Orthopedic Surgery in M.D. Procedure And Treatment Not Carried Out Due To Patient Leaving Prior To Being Seen By Health Care Provider [place], [place] [address] [facility] 200 [place] [address] [phone] Social History Tobacco Use Types Packs/Day Years [...] attend jehovah's witness or Patient refused 2021 holiness services? Do [...] Appointment Radiology Alfredo Herrera O.P.A.-C. [address] [place] [address] 09/06/2022 Office Visit Orthopedic Surgery Cyrus Polk M.D. [address] [place] [address] Scheduled Orders Name Type Priority Associated Diagnoses [...]
--- OUTSIDE RECORDS SUMMARY | 2022-08-17 06:59 | XMS_ITS | Encounter Summary ---
:1965 Author Organization [facility] Address [address] [place] [address] Care Team Providers Name Role Phone Unavailable Primary Care Provider Unavailable Reason for Referral Outpatient (Routine) - Closed Specialty Diagnoses / Procedures Referred By Contact Refer red To Contact Diagnoses Pain Wrist Left Michael Noble Jr., [facility] Procedures PM Device interrogation (clinic) P.A.-C. [address] [place] [phone] Referral ID Status Reason Start Date Expiration Date Visits Requ ested Visits Authorized [id number] Closed 03/17/2021 03/17/2022 1 1 RI/CAT/PET Scan (Routine) - Closed Specialty Diagnoses / Procedures Referred By Contact Refer red To Contact Radiology Diagnoses Pain Wrist Left Michael Noble Jr., [facility] Procedures MR Wrist Left without IV Contrast P.A.-C. 200 [place], [place] [address] Referral ID Status Reason Start Date Expiration Date Visits Requ ested Visits Authorized [id number] Closed 03/17/2021 03/17/2022 1 1 Encounter Details Date Type Department Care Team Description 03/17/2021 Orders Only Department of Michael Noble Wris t Left Orthopedic Surgery in Tona Patel Jr. (Primary Dx) [place], [place] [address] [place] [phone] Social History Tobacco Use Types Packs/Day Years [...] Appointment Radiology Alfredo Herrera O.P.A.-C. [address] [place] [address] 09/06/2022 Office Visit Orthopedic Surgery Cyrus Polk M.D. [address] [place] [phone] Scheduled Orders Name Type Priority Associated Diagnoses [...]
--- OUTSIDE RECORDS SUMMARY | 2022-08-17 06:59 | XMS_ITS | Encounter Summary ---
:1965 Author Organization [facility] Address [address] [place] [address] Care Team Providers Name Role Phone Unavailable Primary Care Provider Unavailable Reason for Visit Outpatient (Routine) - Closed Specialty Diagnoses / Procedures Referred By Contact Refer red To Contact Neurological Surgery Jeannette Cote [place] [facility] [place] M.D. [address] [place] [phone] Referral ID Status Reason Start Date Expiration Date Visits Requ ested Visits Authorized [id number] Closed 02/17/2021 02/17/2022 1 1 Encounter Details Date Type Department Care Team Description 03/12/2021 Office Visit Department of Gonzalez Benjamin Neurologic Surgery in Lilian Jang, Cinthya castorena ([facility]) (Primary [place], [place] Ph.D. Dx) [address] [place] [address] [place] [phone] Social History Tobacco Use Types Packs/Day [...] you attend hinduism or Patient refused 2021 mandaen services? Do you belong to any clubs or No 05/17/2022 organizations such as hinduism groups, unions, fraServiceNow or athletic groups, or school groups? How [...] 09/06/2022 Appointment Radiology Alfredo Herrera O.P.A.-C. [address] [place] [phone] 09/06/2022 Office Visit Orthopedic Surgery Cyrus Polk M.D. [address] [place] [phone] documented as of this encounter Visit Diagnoses Diagnosis Dissection Vertebral Artery (HCC) - Prim monisha documented in this encounter Additional Health Concerns Assessment Noted Time PHQ-9 Depression Total Score: 16 02/11/2021 12:00 AM C DT documented as of this encounter
--- OUTSIDE RECORDS SUMMARY | 2022-08-17 06:59 | XMS_ITS | Encounter Summary ---
:1965 Author Organization [facility] Address [address] [place] [address] Care Team Providers Name Role Phone Unavailable Primary Care Provider Unavailable Reason for Visit Reason Comments Follow-up [facility] Patient Encounter Details Date Type Department Care Team Description 02/25/2021 Clinical Communication [facility] Neurology jimmy Celaya M.D. Patient) [place], [facility] [address] [place], [place] [address] [place] [phone] [place], [place] [phone] (Work) [phone] Social History Tobacco Use Types Packs/Day Years [...] so I advised she report to the [place] [facility] as soon as possible to be [...] Appointment Radiology Alfredo Herrera O.P.A.-C. [address] [place] [address] 09/06/2022 Office Visit Orthopedic Surgery Cyrus Polk M.D. [address] [place] [address] documented as of this encounter Visit Diagnoses Not on filedocumented in this encounter Additional Health Concerns Assessment Noted Time PHQ-9 Depression Total Score: 16 02/11/2021 12:00 AM C DT documented as of this encounter
--- OUTSIDE RECORDS SUMMARY | 2022-08-17 06:59 | XMS_ITS | Encounter Summary ---
:1965 Author Organization [facility] Address [address] [place] [address] Care Team Providers Name Role Phone Unavailable Primary Care Provider Unavailable Reason for Visit Reason Comments Nicotine Dependence Encounter Details Date Type Department Care Team Description 03/10/2021 Clinical Communication Department of [facility], Carolyn Mccarthy cotine Dependence Nicotine M.S., Dependence, C.T.T.S., [facility]C. in [address] [place] [phone] [place], [place] [phone] (Work) [phone] Social History Tobacco Use Types Packs/Day Years [...] you attend buddhism or Patient refused 2021 mosque services? Do [...] Appointment Radiology Alfredo Herrera O.P.A.-C. [address] [place] [address] 09/06/2022 Office Visit Orthopedic Surgery Cyrus Polk M.D. [address] [place] [address] documented as of this encounter Visit Diagnoses Not on filedocumented in this encounter Additional Health Concerns Assessment Noted Time PHQ-9 Depression Total Score: 16 02/11/2021 12:00 AM C DT documented as of this encounter
--- OUTSIDE RECORDS SUMMARY | 2022-08-17 07:00 | XMS_ITS | Encounter Summary ---
:1965 Author Organization [facility] Address [address] [place] [address] Care Team Providers Name Role Phone Unavailable Primary Care Provider Unavailable Reason for Visit Reason Onset Date Comments saul med request 02/03/2021 Encounter Details Date Type Department Care Team Description 02/03/2021 Clinical Communication Department of [facility], trinidad Mccarthy med request Nicotine Dependence, M.S., C.T.T.S., [facility], L.P.C.C. in [address] [place] [address] [place], [place] [phone] (Work) [phone] Social History Tobacco Use Types Packs/Day Years [...] you attend anglican or Patient refused 2021 congregation services? Do [...] 02/03/2021 10:16 AM CST Please send to [facility] in [facility] 21 mg patches with refills Nicotrol inhaler with refills Nicotine nasal spray with refills [employer] documented in this encounter Plan of Treatment Upcoming Encounters Date Type Specialty Care Team Description 09/01/2022 Clinical Communication Admitting/Central Scheduling 09/06/2022 Appointment Radiology Alfredo Herrera O.P.A.-C. [address] [place] [phone] 09/06/2022 Office Visit Orthopedic Surgery Cyrus Polk M.D. [address] [place] [phone] documented as of this encounter Visit Diagnoses Not on filedocumented in this encounter Additional Health Concerns Assessment Noted Time PHQ-9 Depression Total Score: 23 02/02/2021 11:[address] documented as of this encounter
--- OUTSIDE RECORDS SUMMARY | 2022-08-17 07:00 | XMS_ITS | Encounter Summary ---
:1965 Author Organization [facility] Address [address] [place] [address] Care Team Providers Name Role Phone Unavailable Primary Care Provider Unavailable Encounter Details Date Type Department Care Team Description 02/11/2021 Ancillary Procedure Department of Radiology Ridge Vega in [facility] raúl Quintana 200 [facility] 200 [place] [phone] (Wo rk) Social History Tobacco Use Types [...] Appointment Radiology Alfredo Herrera O.P.A.-C. [address] [place] [address] 09/06/2022 Office Visit Orthopedic Surgery Cyrus Polk M.D. [address] [place] [phone] documented as of this encounter Procedures Procedure [...] bilateral thalami (series 3 image 36), bilateral VOUCHER EXAMINER 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 bilateral thalami (series 3 image 36), bilateral VOUCHER EXAMINER 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 bilateral thalami (series 3 image 36), bilateral VOUCHER EXAMINER 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 bilateral thalami (series 3 image 36), bilateral VOUCHER EXAMINER 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 bilateral thalami (series 3 image 36), bilateral VOUCHER EXAMINER 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 bilateral thalami (series 3 image 36), bilateral VOUCHER EXAMINER 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
--- OUTSIDE RECORDS SUMMARY | 2022-08-17 07:00 | XMS_ITS | Encounter Summary ---
:1965 Author Organization [facility] Address [address] [place] [address] Care Team Providers Name Role Phone Unavailable Primary Care Provider Unavailable Encounter Details Date Type Department Care Team Description 02/03/2021 Orders Only Department of Neurology Leonides Kumar S troke ([facility]) (Primary in [facility] Lilian Dx) [address] [facility] 200 [place] [address] [phone] Social History Tobacco Use Types Packs/Day Years [...] Appointment Radiology Alfredo Herrera O.P.A.-C. [address] [place] [address] 09/06/2022 Office Visit Orthopedic Surgery Cyrus Polk M.D. [address] [place] [address] documented as of this encounter Visit Diagnoses Diagnosis Stroke (HCC) - Primary documented in this encounter Additional Health Concerns Assessment Noted Time PHQ-9 Depression Total Score: 23 02/02/2021 11:[address] documented as of this encounter
--- OUTSIDE RECORDS SUMMARY | 2022-08-17 07:00 | XMS_ITS | Encounter Summary ---
:1965 Author Organization [facility] Address [address] [place] [address] Care Team Providers Name Role Phone Unavailable Primary Care Provider Unavailable Encounter Details Date Type Department Care Team Description 02/05/2021 Orders Only Pharmacy Prior Auth RO Elsewhere, Pcp [phone] Social History Tobacco Use Types Packs/Day Years [...] you attend jewish or Patient refused 2021 episcopal services? Do [...] Appointment Radiology Alfredo Herrera O.PBrittonAOmar [address] [place] [address] 09/06/2022 Office Visit Orthopedic Surgery Cyrus Polk M.D. [address] [place] [address] documented as of this encounter Visit Diagnoses Not on filedocumented in this encounter Additional Health Concerns Infection Onset Date Last Indicated Resolved Time COVID19 Pending 02/10/2021 02/11/2021 02/11/2021 1:09 AM CDT Assessment Noted Time PHQ-9 Depression Total Score: 23 02/02/2021 11:[address] documented as of this encounter
--- OUTSIDE RECORDS SUMMARY | 2022-08-17 07:00 | XMS_ITS | Encounter Summary ---
:1965 Author Organization [facility] Address [address] [place] [address] Care Team Providers Name Role Phone Unavailable Primary Care Provider Unavailable Encounter Details Date Type Department Care Team Description 02/11/2021 Ancillary Procedure Department of Radiology Ridge Vega in [facility] raúl Quintana 200 [facility] 200 [place] [phone] (Wo rk) Social History Tobacco Use Types [...] you attend congregational or Patient refused 2021 orthodoxy services? Do [...] Appointment Radiology Alfredo Herrera O.P.A.-C. [address] [place] [address] 09/06/2022 Office Visit Orthopedic Surgery Cyrus Polk M.D. 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
--- OUTSIDE RECORDS SUMMARY | 2022-08-17 07:00 | XMS_ITS | Encounter Summary ---
:1965 Author Organization [facility] Address [address] [place] [address] Care Team Providers Name Role Phone Unavailable Primary Care Provider Unavailable Encounter Details Date Type Department Care Team Description 02/16/2021 Anesthesia Event Department of Radiology Liban Sunshine APRN, ASSISTANT IN NURSING, DNAP [address] [place] [phone] in [facility] Deep Velasquez M.D. [address] [place] [phone] [place] [phone] Anesthesia Record Procedure Summary Procedure Name Responsible Anesthesia Start Anesthesia Stop Anesthesiologist Time Time IR CEREBRAL Liban Sunshine APRN, 02/16/21 0825 02/16/21 1100 INTRACRANIAL ARTERY ASSISTANT IN NURSING, DNAP EMBOLIZATION Events Date Time Event Comment [...] h andoff to the receiving staff during [facility] ch we 1. Identified the patient [...] 1,000 units/mL injection 6,000 Units heparin standard 88119 Units/250 mL in 0.45 % Sodium C [...] you attend yazidism or Patient refused 2021 gnosticism services? Do you belong to any clubs or No 05/17/2022 organizations such as yazidism groups, unions, fraNeocutis or athletic groups, or school groups? How [...] Room / Location: Department of Radiology in [place], [place] Anesthesia Start: 824 Anesthesia Stop: 1100 [...] Dr. Castillo. Location: Department of Radiology in [place], [place] Pertinent components of the patient's history [...] with patient /legal guardian or through an right of way maintenance supervisor. Risks/Benefits/Alternatives of Blood transfusion discussed with patient [...] Appointment Radiology Alfredo Herrera O.P.A.-C. [address] [place] [address] 09/06/2022 Office Visit Orthopedic Surgery Cyrus Polk M.D. [address] [place] [address] documented as of this encounter Visit Diagnoses [...]
--- OUTSIDE RECORDS SUMMARY | 2022-08-17 07:00 | XMS_ITS | Encounter Summary ---
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 family--Rafal Mosquera. 3. paper wrapping machine operator recommended a shower seat and reaching out to family, friends, and neighbors for assistance. 4. paper wrapping machine operator provided information regarding the dismissal process and the Advance Health CarePlanning: Making Your Wishes Known [phone] booklet along with education on the benefits of completing an advance directive and resources that may assist them in this process. The patient shared no further questions or concerns regarding advance directives. The patient appears to have an understanding of how to complete an advance directive and reported awareness of resources to assist them. 5. paper wrapping machine operator placed or requested the following hospital-based consult orders and/or referrals:None. 6. paper wrapping machine operator will continue to assess for homegoing needs with the interdisciplinary team. 7. paper wrapping machine operator encouraged the patient to reach out with any questions/concerns. Please find transition plan below.\ Patient to discharge with home health care. Home Medical Care - Admitted Since 02/10/2021 Service Provider Selected Services Address Phone Fax Patient Preferred [facility] [address] [address] -- Contact: Intake NURSING: - Complete documentation in the Discharge Navigator including Nursing Report Info and Facility/NextLevel of Care Info - Call report and arrange for the patient???s first visit. - Send required packet of dismissal information with patient, including After Visit Summary and advance directive. - [facility] requests that After Visit Summary [...] Provider: Vidhi Vinson M.D. Patient's Name: Angie Mosquear Reason for Referral: PT evaluate and treat- [...] redo, reverse shoulder arthroplasty : done at [place]. Pt thinks before [place] but notes state 2 months ago), history [...] Right Lives With: Alone Receives Help From: meal attendant, Family(son Rafal lives across the street and can come anytime, mosquito sprayer once a week for 1 hour.) ADL [...] Occupational Role Comments: Previously worked at a [employer] Prior Mobility/Functional Transfers Level of Concrete: Independent Previous Transfer/Mobility Assistance Comments: Patient reports [...] - has a darker pair and a raw stock machine loader pair. tinted due to glare of other [...] PT. Add: patient has home health through [facility] which does not have home PT. Pt [...] a 55-year-old woman who was admitted to on 02/10/2021 due to an acute onset [...] use frequent breath groups during speech) Resonance (AUTOBODY TECHNICIAN Function): Within Normal Limits (WNL) Articulation: Within [...] Primary Mode of Expression: Verbal Primary Language: Greenlandic Repetition: Impaired Sentence Repetition: 41-60% accuracy(Patient often [...] services at the bedside. 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 Prescriptions sent to home pharmacy in [place]. Pt escorted by transport services to awaiting [...] from pt. AVS was also faxed to [facility]. RNs called [...] became verbally and physically aggressive with the Interventional Pain Physician when she attempted to draw her blood. When I arrived she was talking to her nurse calmly. She stated she was startled and believed this person was someone she new from the past, she stated, sherealizes she might of been confused and over reacted. She apologized to staff as well as the the next negotiator who arrived and cooperated with the blood [...] free to contact the YEYO RN at [phone], or in an emergent situation by activating the YEYO team through the hospital panel saw operator by dialing [phone]. Kristie Duron [...] infection during hospitalization 02/16/20212302 by Kristie Duron RBirttonN. Outcome: Progressing 02/16/20212229 by Kristie Duron R.N. [...] draw. Pt began screaming and cursing at negotiator. Interventional Pain Physician came to the nurse's station and reported that pt had hit her in the chest and cussed and screamed at her. YEYO nurse was called. RN went to bedside and spoke to pt. Pt reported that she was confused on who the negotiator was and was just joking. YEYO nurse [...] free to contact the YEYO RN at [phone], or in an emergent situation by activating the YEYO team through the hospital panel saw operator by dialing [phone]. Tiffanie Caceres R.N. - 02/14/2021 4:30 PM [...] is a 55 y.o. female admitted to [facility] for Cerebral Infarction Due To Embolism [...] were going to put her in a prison. It was reiterated to Ms. Mosquera the [...] often thought people were lying to her. [facility] nurse and patient's RN spoke with service [...] free to contact the YEYO RN at [phone], or in an emergent situation by activating the YEYO team through the hospital panel saw operator by dialing [phone]. Taylor Pfeiffer [...] speech, left arm weakness and new confusion. GRANTS SPECIALIST was called and patient went to [...] spine MRI today, needs son to bring clinical writer for spine stimulator, which he is planning [...] called an ambulance who took her to [facility]. ?? In the emergency department at [facility], her Adams stroke score was 0. Head CT unremarkable. [...] 09/06/2022 Appointment Radiology Alfredo Herrera O.P.A.-C. [address] [place] [phone] 09/06/2022 Office Visit Orthopedic Surgery Cyrus Polk M.D. [address] [place] [address] Scheduled Referrals Name Type Priority Associated Diagnoses [...] e Number [facility] - [address] [place], [place] [address] [facility] [place] [address] Laboratories-[facility] [address] (ABNORMAL) CBC without [...] LAB BLOOD ADD-ON Performing Organization Address City/[facility] Code Phon e Number [facility] - [address] [place] [address] [facility] [place] [address] Laboratories-[address] (ABNORMAL) APTT (Activated Partial Thromboplastin Time) [...] e Number [facility] - [address] [place], [place] [address] [facility] [place] [address] [facility] [address] IR Cerebral Intracranial Artery [...] sterile technique and local anesthetic, a 6 Salvadorean sheath was placed in the right SMOG TECHNICIAN via modified Seldinger technique. A 6 Salvadorean sheath was placed in the right radial artery. A 5 Salvadorean Berenstein catheter was placed in the as cending aorta. The catheter was placed in the left vertebral artery and cerebra l angiography was performed. Following this, we advanced a 6 Salvadorean Benchmark c atheter into the right vertebral [...] Phon e Number POC RST [facility] INPATIENT [address] [place], [place] [address] LABS PCSM [facility] [place] [address] [place] [facility] [address] Prothrombin Time (PT) [...] M.D. LAB BLOOD ADD-ON Performing Organization Address [facility] Phon e Number [facility] - [address] [place] [address] (ABNORMAL) Prothrombin Time (PT) (02/14/2021 11:27 AM CDT) Patholo gist Method Time Signature Prothrombin 15.1 (H) 9.4 - 12.5 02[facility], P sec 11:42 AM CDT INR 1.4 0.9 - 1.1 02/14/2021 [facility] 11[facility]42 AM CDT Comment: ----ADDITIONAL INFORMATION---- Standard intensity warfarin therapeutic range: 2.0 to 3.0 ?? High intensity warfarin therapeutic rang e: 2.5 to 3.5 Specimen Anatomical Collection Method Collection Time Receive d Time (Source) Location / / Volume Laterality Blood (Blood, 02/14/2021 11:27 02/14/2021 Venous) AM CDT 11:36 AM CDT Aleisha Vega M.D. LAB BLOOD ADD-ON Performing Organization Address City/[facility] Phon e Number [facility] - [address] (ABNORMAL) Basic Metabolic Panel (02/14/2021 12:24 [...] CDT eGFR-Black/Afric >90 >=60 02/14/2021 DTL an British mL/min/BSA 1:06 AM CDT Comment: ----ADDITIONAL INFORMATION---- [...] e Number [facility] - [address] [place], [place] [address] [facility] [place] [address] [facility] [address] Lactate, baseline (02/14/2021 12:24 AM CDT) P athologist Signature Lactate, P 1.2 0.5 - 2.2 02/14/2021 DTL mmol/L 1:05 AM CDT Specimen Anatomical Collection Method Collection Time Receive d Time (Source) Location / / Volume Laterality Blood (Blood, 02/14/2021 12:24 02/14/2021 Venous) AM CDT 12:43 AM CDT Laquita Malagon M.D. LAB BLOOD NON ADD-ON Performing Organization Address City/[facility] Phon e Number [facility] - 200 [place], [place] [address] [facility] [place] [address] [facility] 200 [facility] (ABNORMAL) CBC without Differential (02/14/2021 12:24 AM [...] LAB BLOOD ADD-ON Performing Organization Address City/[facility] Phon e Number [facility] - 200 [place], [place] [address] [place] [address] [facility]ly [facility] [address] MR Brain WOW [...] lobes, both cerebellar hemispheres, consistent with acute/subac huslia infarcts in both posterior cerebral artery territories. No hemorrhagic complication or significa nt intracranial mass effect. No hydrocephalus or midline shift. No subdu ral fluid collection is seen. Mild cerebral and cerebellar atrophy. The par anasal sinuses and mastoid air cells are clear. The [place] intraocular lenses are absent. The MRA of the [place] demonstr ates a left supraclinoid [...] lobes, both cerebellar hemispheres, consistent with acute/subac huslia infarcts in both posterior cerebral artery territories. No hemorrhagic complication or significa nt intracranial mass effect. No hydrocephalus or midline shift. No subdu ral fluid collection is seen. Mild cerebral and cerebellar atrophy. The par anasal sinuses and mastoid air cells are clear. [place] intraocular lenses are absent. The MRA of the [place] demonstr ates a left supraclinoid [...] performance characteri stics were determined by [facility] in a manner co nsistent with CLIA [...] LAB BLOOD NON ADD-ON Performing Organization Address [facility] Phon e Number [facility] - [address] [place] [address] (ABNORMAL) Prothrombin Time (PT) (02/13/2021 5:44 AM CDT) [facility] Method Time Signature Prothrombin 13.8 (H) 9.4 - 12.5 02/13/2021 [facility] Time, P sec 5:57 AM CDT INR 1.3 0.9 - 1.1 02/13/2021 [facility] 5:57 AM CDT Comment: ----ADDITIONAL INFORMATION---- Standard intensity warfarin therapeutic range: 2.0 to 3.0 ?? High intensity warfarin therapeutic rang e: 2.5 to 3.5 Specimen Anatomical Collection Method Collection Time Receive d Time (Source) Location / / Volume Laterality Blood (Blood, 02/13/2021 5:44 AM 02/14/20 5:50 Venous) CDT AM CDT Aleisha Vega M.D. LAB BLOOD ADD-ON Performing Organization Address City/[facility] Phon e Number [facility] - [address] Type and Screen (with reflex Antibody [...] Organization Address City/State/ZIP Code Phon e Number [address] [address] [place] [address] Laboratories-[address] Basic Metabolic Panel (02/13/2021 5:44 AM [...] CDT eGFR-Black/Afric >90 >=60 02/13/2021 [facility] an British mL/min/BSA 6:05 AM CDT Comment: ----ADDITIONAL INFORMATION---- [...] e Number [facility] - [address] [place] [address] [place] [address] Laboratories[facility] [address] [facility] (ABNORMAL) CBC without Differential (02/13/2021 5:44 AM CDT) [facility] gist Method Time Signature Hemoglobin 10.6 (L) [...] e Number [facility] - [address] [place], [place] [address] [facility] [place] [address] Laboratories-[facility] [address] ([place]) 2D WITH [...] and the findings as documented in the system manager and also performed a pertinent examination including [...] at the request of the primary service coordinator elderly facility. ??Adult probe inserted witho ut difficulty. ??LEFT [...] bifurcation. ??Normal s uperior vena cava. ??No nvjr-yx-pxxwa shunt at atrial level. ??Agitated saline injection(s) pe rformed during sedation. ??Small ohsha-nh-waqp shunt at atrial level at rest and [...] Na rrator or other pertinent record in [employer] for additional procedure and sedation information. ??Ph ysician signature for procedural medications and patient discharge when DC criteria met. For the complete report, see the [employer] Documents. Narrative 02/11/2021 12:19 PM CDT For the complete report, see the M[employer] Documents. Final Impressions 1. Normal left ventricular [...] and the findings as documented in the system manager and also performed a pertinent examination including [...] at the request of the primary service coordinator elderly facility. Adult probe inserted without difficulty. LEFT VENTRICLE: [...] bifurcation. Normal sup erior vena cava. No rcsl-dh-ogjcg shunt at atrial level. Agitated saline injection(s) perf ormed during sedation. Small tlyxy-dr-djfn shunt at atrial level at rest and [...] Narr ator or other pertinent record in [facility] for additional procedure and sedation information. Phys ician signature for procedural medications and patient discharge when DC criteria met. For the complete report, see the Order[employer]el Documents. Aleisha Vega M.D. CV ECHO PROCEDURES Bacteria / Mandi Culture, Blood #2 (02/11/2021 9:49 AM CDT) [facility] gist Method Time Signature Bacteria/Valerie No growth 02/16/2021 DTL da Culture, after 5 11:02 AM CDT Blood days of incubation. Specimen (Source) Anatomical Collection Method Collection Time Re ceived Time Location / / Volume Laterality Blood (Blood, 02/11/2021 9:49 02/11/2021 Peripheral Draw) AM CDT 10:18 AM CD T Comment: Specimen Source Site: Blood Narrative [facility] - [facility] - 02/16/2021 11:02 AM CDT Received Bactec Peds bottle Laquita Malagon M.D. LAB MICROBIOLOGY - GENERAL O RDERABLES Performing Organization Address City/State/ZIP Code Phon e Number [facility] - [address] [place], [place] [address] [place] [address] Laboratories-[facility] [address] (ABNORMAL) Apixaban, Anti-Xa, P (02/11/2021 9:48 AM CDT) P athologist Signature Apixaban, 16 (H) <10 ng/mL 02/11/2021 DT Anti-Xa, P 10:59 AM CDT Comment: ----ADDITIONAL INFORMATION---- This test has been modified from the man ufacturer's instructions. Its performance characteri stics were determined by [facility] in a manner co nsistent with CLIA [...] e Number [facility] - [address] [place], [place] [address] [place] [address] [facility] 200 [facility] Bacteria / Mandi Culture, Blood #1 (02/11/2021 [...] T Comment: Specimen Source Site: Blood Narrative [facility] - 02/16/2021 11:02 AM CDT Received Bactec Peds bottle Laquita Malagon M.D. LAB MICROBIOLOGY - GENERAL O RDERABLES Performing Organization Address City/State/ZIP Code Phon e Number [address] [place] [address] Heparin Anti-Xa Assay (02/11/2021 1:56 AM [...] e Number [facility] - [address] [place], [place] [address] [facility] [place] [address] Laboratories-[facility] [address] Interpretation of Outside MR [...] bilateral thalami (series 3 image 36), bilateral LOCOMOTIVE OPERATOR HELPER 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 bilateral thalami (series 3 image 36), bilateral LOCOMOTIVE OPERATOR HELPER 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 bilateral thalami (series 3 image 36), bilateral LOCOMOTIVE OPERATOR HELPER 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 bilateral thalami (series 3 image 36), bilateral LOCOMOTIVE OPERATOR HELPER 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 bilateral thalami (series 3 image 36), bilateral LOCOMOTIVE OPERATOR HELPER 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 bilateral thalami (series 3 image 36), bilateral LOCOMOTIVE OPERATOR HELPER 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 and supraclinoid ane urysms are unchanged. Aleisha eVga M.D. IMGeronimo MRI PROCEDURES SARS Coronavirus 2, RNA, Rapid POC, V Asymptomatic (02/11/2021 12:48 AM CDT) [facility] Method Time Signature SARS Undetected Undetected 02/11/2021 DT[facility] Coronavirus-2 1:09 AM CDT , RNA, Rapid POC, V Comment: Negative for SARS-CoV-2. The [employer] COVID-19 test is a molecular shahzad t for SARS-CoV-2, the virus that causes COVID- 19. A Negative result means that the [employer] COV ID-19 test did not detect SARS-CoV-2 virus in your sample. Cue COVID-19 test uses the xPeerient System. This test has received Emergency Use Authorization (EUA) by the U.S. Food and Drug Administration (FDA) and is used per man ufacturer instructions. Performance characteristic s were verified by [facility] in a manner consistent with CLIA requirements. Fact sheets for this Emerg ency Use Authorization (EUA) can be found at the following links: Providers: https://[employer].Explore.To Yellow Pages/documentation/prov iders.pdf Patients: https://[employer].com/documentation/olayinka ents.pdf SARS Coronavirus 2, Source Nasopharynx DEFAULT 02/11/2021 1:09 AM CDT DT[facility] Specimen Anatomical Collection Method Collection Time Receive d Time (Source) Location / / Volume Laterality Varies 02/11/2021 12:48 02/11/2021 (Nasopharynx) AM CDT 12:48 AM CDT Vidhi Vinson M.D. LAB MICROBIOLOGY - GENERAL O RDERABLES Performing Organization Address City/[facility] Phon e Number PERFORMING LABS, [place] [address] INTERFACE Ref Interface [address] [facility] DTLR Performing Labs, [place] [address] Interface [address] [facility] Prothrombin Time (PT) (02/11/2021 12:35 [...] LAB BLOOD ADD-ON Performing Organization Address City/[facility] Phon e Number [facility] - [address] [place], [place] [address] [facility] [place] [address] Laboratories-[facility] [address] CBC without Differential (02/11/2021 [...] e Number [facility] - [address] [place], [place] [address] [facility] [place] [address] Laboratories[facility] [address] [facility] (ABNORMAL) Basic Metabolic Panel (02/11/2021 12:34 AM [...] 02/11/2021 DTL Black/ mL/min/BSA 2:01 AM CDT British Comment: ----ADDITIONAL INFORMATION---- Estimated GFR calculated using [...] M.D. LAB BLOOD ADD-ON Performing Organization Address City/State/[facility] Code Phon e Number [facility] - [address] [place] [address] Laboratories-[place] [address] [address] [facility] AST (Aspartate Aminotransferase) (02/11/2021 12:34 AM CDT) [facility] gist Method Time Signature Aspartate 15 8 - 43 02/11/2021 DTL Aminotransferase U/L 2:01 AM CDT (AST), S Specimen Anatomical Collection Method Collection Time Receive d Time (Source) Location / / Volume Laterality Blood (Blood, 02/11/2021 12:34 02/11/2021 Venous) AM CDT 12:59 AM CDT Aleisha Vega M.D. LAB BLOOD ADD-ON Performing Organization Address City/State/[facility] Phon e Number [facility] - [address] [place] [address] Laboratories-[facility] [address] [facility] ALT (Alanine Aminotransferase) (02/11/2021 12:34 AM CDT) [...] e Number [facility] - 200 [place], [place] [address] [place] [address] ECG 12 Lead (02/10/2021 11:47 PM CDT) P athologist Signature Ventricular Rate 63 BPM MUSE ECG/Min WA Interval 178 ms MUSE QRSD Interval 96 ms MUSE QT Interval 456 ms MUSE QTC Interval 466 ms MUSE P Sumner 54 degrees MUSE R Sumner -15 degrees MUSE T Wave [place] 21 degrees MUSE Specimen Anatomical Collection Method [...] or split tablet. May crush using the [employer]akau[employer]ush system. zonisamide capsule 300 mg (ZONEGRAN) Given [...] Lauren abbasi RBetsy)07 (Given - Provider: Jane Reeys R.N.)1446 (Given - Provider: Jane Reyes R.N.)1834 [...] - Provider: Mayte Palmer RBetsy - Comment: [id number]) 1-200 mL, intravenous, Once in imaging, contrast, [...] 21 mg/24 hr 1 patch (NICODERM CQ) 0976 (Medic ation Removed - Provider: Tiffanie Caceres [...]
--- OUTSIDE RECORDS SUMMARY | 2022-08-17 07:00 | XMS_ITS | Encounter Summary ---
:1965 Author Organization [facility] Address [address] [place] [address] Care Team Providers Name Role Phone Unavailable Primary Care Provider Unavailable Encounter Details Date Type Department Care Team Description 02/11/2021 Ancillary Procedure Department of Radiology [place] in [facility] raúl Quintana 200 [facility] 200 [place] [phone] (Wo rk) Social History Tobacco Use Types [...] you attend hindu or Patient refused 2021 roman catholic services? [...] Appointment Radiology Alfredo Herrera O.PSilas [address] [place] [address] 09/06/2022 Office Visit Orthopedic Surgery Cyrus Polk M.D. [address] [place] [phone] documented as of this encounter Procedures Procedure [...] bilateral thalami (series 3 image 36), bilateral HOUSING AND RESIDENCE LIFE DIRECTOR 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 bilateral thalami (series 3 image 36), bilateral HOUSING AND RESIDENCE LIFE DIRECTOR 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 bilateral thalami (series 3 image 36), bilateral HOUSING AND RESIDENCE LIFE DIRECTOR 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 bilateral thalami (series 3 image 36), bilateral HOUSING AND RESIDENCE LIFE DIRECTOR 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 bilateral thalami (series 3 image 36), bilateral HOUSING AND RESIDENCE LIFE DIRECTOR 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 bilateral thalami (series 3 image 36), bilateral HOUSING AND RESIDENCE LIFE DIRECTOR 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
--- OUTSIDE RECORDS SUMMARY | 2022-08-17 07:01 | XMS_ITS | Encounter Summary ---
:1965 Author Organization [facility] Address [address] [place] [address] Care Team Providers Name Role Phone Unavailable Primary Care Provider Unavailable Encounter Details Date Type Department Care Team Description 09/15/2020 Ancillary Procedure Department of Robert Diehl Aneurysm Radiology jimmy Celaya M.D. Nonruptured (HCC) [place], [place] [address] [facility] [address] [place] [phone] Social History Tobacco Use Types Packs/Day Years [...] you attend christian or Patient refused 2021 catholic services? Do [...] Appointment Radiology Alfredo Herrera O.P.A.-C. [address] [place] [phone] 09/06/2022 Office Visit Orthopedic Surgery Cyrus Polk M.D. [address] [place] [phone] documented as of this encounter Procedures Procedure [...] nt right vertebral artery. RADHA, MCA, and angledozer operator are patent. Neck MRA: Conventional three-vessel arch [...] nt right vertebral artery. RADHA, MCA, and angledozer operator are patent. Neck MRA: Conventional three-vessel arch [...]
--- OUTSIDE RECORDS SUMMARY | 2022-08-17 07:01 | XMS_ITS | Encounter Summary ---
:1965 Author Organization [facility] Address [address] [place] [address] Care Team Providers Name Role Phone Unavailable Primary Care Provider Unavailable Reason for Visit Reason Comments Follow-up [facility] Patient Encounter Details Date Type Department Care Team Description 12/29/2020 Clinical Communication [facility] Neurology jimmy Celaya M.D. Patient) [place], [place] [address] [place], [place] [address] [place] [phone] [place], [place] [phone] (Work) [phone] Social History Tobacco Use Types Packs/Day Years [...] you attend nondenominational or Patient refused 2021 adventism services? Do [...] her know PCP needs to prescribe meclizine. BUCKER Telephone Encounter - Allyssa Amaya - 12/29/2020 [...] ambulance for; one of which lasted over hlu-wzh-x-half days. She is having headaches, etc. 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 [address] [place] [phone] 09/06/2022 Office Visit Orthopedic Surgery Cyrus Polk M.D. [address] [place] [phone] documented as of this encounter Visit Diagnoses Not on filedocumented in this encounter Additional Health Concerns Assessment Noted Time PHQ-9 Depression Total Score: 5 04/05/2019 8:00 AM CDT documented as of this encounter
--- OUTSIDE RECORDS SUMMARY | 2022-08-17 07:01 | XMS_ITS | Encounter Summary ---
:1965 Author Organization [facility] Address [address] [place] [address] Care Team Providers Name Role Phone Unavailable Primary Care Provider Unavailable Reason for Referral Outpatient (Routine) - Closed Specialty Diagnoses / Procedures Referred By Contact Clyde bains To Contact Neurology Robert Diehl M. D. [facility] [address] [place] [address] Referral ID Status Reason Start Date Expiration Date Visits Requ ested Visits Authorized [id number] Closed 09/15/2020 09/15/2021 1 1 Reason for Visit Appointment Request (Routine) - Closed Specialty Diagnoses / Procedures Referred By Contact Clyde bains To Contact Neurology Referral ID Status Reason Start Date Expiration Date Visits Requ ested Visits Authorized [id number] Closed 07/31/2020 07/31/2021 1 1 Encounter Details Date Type Department Care Team Description 09/15/2020 Virtual Visit Department of Robert Diehl [place] An eurysm Nonruptured (HCC) (Primary Dx); Neurology in M.D. Nicotine Dependence ; [place], [place] [address] [facility] Aneurysm Cerebral Unruptured (HCC) [address] [place] [phone] Social History Tobacco Use Types Packs/Day Years [...] you attend tenriism or Patient refused 2021 mormonism services? Do [...] via the telephone and not in a mrwx-da-hmtc manner. Ms. Mosquera is a 55-year-old woman [...] 09/06/2022 Appointment Radiology Alfredo Herrera O.P.A.-C. [address] [place] [phone] 09/06/2022 Office Visit Orthopedic Surgery Cyrus Polk M.D. [address] [place] [address] Scheduled Referrals Name Type Priority Associated Diagnoses Order [facility] Neurology office Outpatient Referral Routine [...] nt right vertebral artery. RADHA, MCA, and continuous improvement intern are patent. Neck MRA: Conventional three-vessel arch [...] nt right vertebral artery. RADHA, MCA, and continuous improvement intern are patent. Neck MRA: Conventional three-vessel arch [...]
--- OUTSIDE RECORDS SUMMARY | 2022-08-17 07:01 | XMS_ITS | Encounter Summary ---
:1965 Author Organization [facility] Address 200 [place] [address] Care Team Providers Name Role Phone Unavailable Primary Care Provider Unavailable Reason for Referral MRI/CAT/PET Scan (Routine) - Closed Specialty Diagnoses / Procedures Referred By Contact Refer red To Contact Radiology Diagnoses Robert Akhtar M.D. [facility] Procedures CT Head Neck Angiogram with IV Contrast 200 [place] [address] Referral ID Status Reason Start Date Expiration Date Visits Requ ested Visits Authorized [id number] Closed 12/30/2020 12/30/2021 1 1 E ROOFER MRI/CAT/PET Scan (Routine) - Closed Specialty Diagnoses / Procedures Referred By Contact Refer red To Contact Radiology Diagnoses Stroke Cerebrovascular Accident Personal History Robert Diehl M.D. [facility] Procedures CT Head without IV Contrast [address] [place] [address] Referral ID Status Reason Start Date Expiration Date Visits Requ ested Visits Authorized [id number] Closed 12/30/2020 12/30/2021 1 1 E ROOFER Reason for Visit MRI/CAT/PET Scan (Routine) - Closed Specialty Diagnoses / Procedures Referred By Contact Refer red To Contact Radiology Diagnoses Ataxia Robert Diehl M.D. [facility] Procedures CT Head Neck Angiogram with IV Contrast [address] [place] [address] Referral ID Status Reason Start Date Expiration Date Visits Requ ested Visits Authorized [id number] Closed 12/30/2020 12/30/2021 1 1 Encounter Details Date Type Department Care Team Description 12/31/2020 Hospital Encounter Department of Robert Diehl Stroke Cerebrovascular Accident Personal History; Radiology, Severiano Celaya M.D. [facility] in [address] [place] [phone] [place] [address] [place], [place] (Work) [phone] Social History Tobacco Use Types Packs/Day Years [...] you attend pentecostal or Patient refused 2021 yazidi services? Do [...] Robert Diehl M.D. - 12/31/2020 5:17 PM SLATE ROOFER I called and discussed the results with [...] by: Robert Diehl M.D. 12/31/20 5:16 PM SLATE ROOFER Stroke Cerebrovascular Accident Personal History Plan: CT Head without IV Contrast, CT Head without IV Contrast Ataxia Plan: CT Head Neck Angiogram with IV Contrast, CT Head Neck Angiogram with IV Contrast E ROOFER documented in this encounter Plan of Treatment Upcoming Encounters Date Type Specialty Care Team Description 09/01/2022 Clinical Communication Admitting/Central Scheduling 09/06/2022 Appointment Radiology Alfredo Herrera O.P.A.-C. [address] [place] [phone] 09/06/2022 Office Visit Orthopedic Surgery Cyrus Polk M.D. [address] [place] [phone] documented as of this encounter Procedures Procedure Name Priority Date/Time Associated Diagnosis Comme nts CT HEAD WITHOUT RAD - Routine 12/31/2020 3:34 Stroke Results for IV CONTRAST (most inpatients PM SLATE ROOFER Cerebrovascular this pro cedure and all Accident Personal are in the outpatients) History results section. CT HEAD NECK RAD - Routine 12/31/2020 3:34 Ataxia Results for ANGIOGRAM WITH (most inpatients PM SLATE ROOFER this proc edure IV CONTRAST and all are in the outpatients) results section. documented in this encounter Results CT Head Neck Angiogram with IV Contrast (12/31/2020 3:34 PM SLATE ROOFER) Anatomical Region Laterality Modality Head and Neck, Neuroradiology RST LOS, N/A C omputed Tomography, Computed Neuroradiology ARZ LOS, Neuroradiology T omography FLA [facility] Specimen (Source) Anatomical Collection Method Collection Time Re ceived Time Location / / Volume Laterality 12/31/2020 3:49 PM SLATE ROOFER Impressions 12/31/2020 4:54 PM SLATE ROOFER 1. Evolving right cerebellar infarct with decreased [...] oid ICA aneurysms. Narrative 12/31/2020 4:54 PM SLATE ROOFER EXAM: CT HEAD WITHOUT IV CONTRAST, CT [...] discussed with ordering physici Dr. Fazal abbasi ([id number]) at 4:54 PM on 12/31/2020. Procedure Note [...] discussed with ordering physici Dr. Fazal abbasi ([id number]) at 4:54 PM on 12/31/2020. IMPRESSION: 1. [...] Head without IV Contrast (12/31/2020 3:34 PM SLATE ROOFER) Anatomical Region Laterality Modality Head, Neuroradiology RST LOS, N/A Computed T omography, Computed Neuroradiology ARZ LOS, Neuroradiology T omography FLA LOS Specimen (Source) Anatomical Collection Method Collection Time Re ceived Time Location / / Volume Laterality 12/31/2020 3:49 PM SLATE ROOFER Impressions 12/31/2020 4:54 PM SLATE ROOFER 1. Evolving right cerebellar infarct with decreased [...] oid ICA aneurysms. Narrative 12/31/2020 4:54 PM SLATE ROOFER EXAM: CT HEAD WITHOUT IV CONTRAST, CT [...] Findings discussed with ordering Dr. Fazal ching ([id number]) at 4:54 PM on 12/31/2020. Procedure Note [...] Findings discussed with ordering physici anDr. Diehl ([id number]) at 4:54 PM on 12/31/2020. IMPRESSION: 1. [...] mg iodine/mL solution Given 12/31/2020 3:34 PM SLATE ROOFER 1 00 mL 1-200 mL (OMNIPAQUE) 1-200 mL, intravenous, Once in imaging, contrast, Starting on Tue12/31/20 at 1411, For 1 dose, Imaging Protocol Orders, Dose per Radiant Medication Guidelines sodium chloride (PF) 0.9 % injection 1-1 00 mL Given 12/31/2020 3:34 PM SLATE ROOFER 35 mL 1-100 mL, intravenous, Once, On Tue12/31/20 at 1415, For 1 dose, Imaging Protocol Orders documented in this encounter Additional Health Concerns Assessment Noted Time PHQ-9 Depression Total Score: 5 04/05/2019 8:00 AM CDT documented as of this encounter
--- OUTSIDE RECORDS SUMMARY | 2022-08-17 07:01 | XMS_ITS | Encounter Summary ---
:1965 Author Organization [facility] Address [address] [place] [address] Care Team Providers Name Role Phone Unavailable Primary Care Provider Unavailable Reason for Visit Reason Comments Pre-visit Intake Encounter Details Date Type Department Care Team Description 01/29/2021 Clinical Communication Department of Robert Diehl e-visit Intake Neurology in Lilian Celaya [place], [facility] [place], [place] [address] [place] [phone] [place], [place] [phone] (Work) [phone] Social History Tobacco Use Types Packs/Day Years [...] you attend spiritism or Patient refused 2021 rastafari services? Do [...] 09/06/2022 Appointment Radiology Alfredo Herrera O.PBrittonAOmar [address] [place] [phone] 09/06/2022 Office Visit Orthopedic Surgery Cyrus Polk M.D. [address] [place] [address] documented as of this encounter Visit Diagnoses Not on filedocumented in this encounter Additional Health Concerns Assessment Noted Time PHQ-9 Depression Total Score: 5 04/05/2019 8:00 AM CDT documented as of this encounter
--- OUTSIDE RECORDS SUMMARY | 2022-08-17 07:01 | XMS_ITS | Encounter Summary ---
:1965 Author Organization [facility] Address [address] [place] [address] Care Team Providers Name Role Phone Unavailable Primary Care Provider Unavailable Encounter Details Date Type Department Care Team Description 01/12/2021 Anticoagulation Visit Department of Neurology Zuly Alex in [facility] raúl SkaggsNBritton [address] [facility] [address] [place] [phone] Social History Tobacco Use Types Packs/Day Years [...] you attend yazidi or Patient refused 2021 mandaeism services? Do [...] Target INR 2.0-3.[address] Argenis Diehl ([id number]). The patient was scheduled for an INR recheck on 01/09/21, however did not have an INR draw until late that afternoon. The results did not become available until after clinic hours. Patient's INR on 01/09/21 was 2.[address]. Discuss[address] with Dr. Argenis Diehl ([id number]) who advises that the patient follow a [...] OF PHONE CALL. Test results, symptom assessment. ITY COMPLIANCE MANAGER documented in this encounter Plan of Treatment Upcoming Encounters Date Type Specialty Care Team Description 09/01/2022 Clinical Communication Admitting/Central Scheduling 09/06/2022 Appointment Radiology Alfredo Herrera O.P.A.-C. [address] [place] [address] 09/06/2022 Office Visit Orthopedic Surgery Cyrus Polk M.D. [address] [place] [address] documented as of this encounter Procedures Procedure Name Priority Date/Time Associated Diagnosis Comme nts PROTHROMBIN TIME (PT), Routine 01/09/2021 Resul ts for this P procedure are i n the results section . documented in this encounter Results Prothrombin Time (PT) (01/09/2021) P athologist Signature EXT INR 2.40 OTHER (SPECIFY IN JAVASCRIPT FRONT END DEVELOPER) Specimen (Source) Anatomical Location Collection Method / Collectio n Time Received Time / Laterality Volume Blood (Blood, 01/09/2021 Venous) Narrative This result has an attachment that is no t available. Historical Provider LAB BLOOD ADD-ON Performing Organization Address City/State/ZIP Code Phon e Number OTHER (SPECIFY IN JAVASCRIPT FRONT END DEVELOPER) OTHER (SPECIFY IN JAVASCRIPT FRONT END DEVELOPER) N/A documented in this encounter Visit Diagnoses Not on filedocumented in this encounter Additional Health Concerns Assessment Noted Time PHQ-9 Depression Total Score: 5 04/05/2019 8:00 AM CDT documented as of this encounter
--- OUTSIDE RECORDS SUMMARY | 2022-08-17 07:01 | XMS_ITS | Encounter Summary ---
:1965 Author Organization [facility] Address [address] [place] [address] Care Team Providers Name Role Phone Unavailable Primary Care Provider Unavailable Reason for Referral MRI/CAT/PET Scan (Routine) - Closed Specialty Diagnoses / Procedures Referred By Contact Refer red To Contact Radiology Diagnoses Ataxia Robert Fowler M.D. [facility] Procedures CT Head Neck Angiogram with IV Contrast 200 [place] [address] Referral ID Status Reason Start Date Expiration Date Visits Requ ested Visits Authorized [id number] Closed 12/31/2020 12/31/2021 1 1 MITH Outpatient (Routine) - Closed Specialty Diagnoses / Procedures Referred By Contact Refer red To Contact Video Medicine Diagnoses Stroke Cerebrovascular Accident Personal History Robert Fowler [facility] Margot Quintana 200 [place] [address] Referral ID Status Reason Start Date Expiration Date Visits Requ ested Visits Authorized [id number] Closed 12/30/2020 12/30/2021 1 1 MITH MRI/CAT/PET Scan (Routine) - Closed Specialty Diagnoses / Procedures Referred By Contact Refer red To Contact Radiology Diagnoses Ataxia Robert Fowler M.D. [facility] Procedures CT Head Neck Angiogram with IV Contrast 200 [place] [address] Referral ID Status Reason Start Date Expiration Date Visits Requ ested Visits Authorized [id number] Closed 12/30/2020 12/30/2021 1 1 MITH MRI/CAT/PET Scan (Routine) - Closed Specialty Diagnoses / Procedures Referred By Contact Refer red To Contact Radiology Diagnoses Stroke Cerebrovascular Accident Personal History Robert Fowler M.D. [facility] Procedures CT Head without IV Contrast [address] [place] [address] Referral ID Status Reason Start Date Expiration Date Visits Requ ested Visits Authorized [id number] Closed 12/30/2020 12/30/2021 1 1 MITH Reason for Visit Reason Comments Symptom Assessment Encounter Details Date Type Department Care Team Description 12/22/2020 Clinical Communication Department of Robert Fowler mptom Assessment Neurology jimmy Celaya M.D. [place], [address] [place], [place] [address] [place] [address] [place], [place] [phone] (Work) [phone] Social History Tobacco Use Types Packs/Day Years [...] attend latter day or Patient refused 2021 anglican services? Do [...] Robert Fowler M.D. - 12/31/2020 5:17 PM KEYSMITH Addended by: ROBERT FOWELR on: 12/31/2020 05:17 PM Modules accepted: Orders MITH Addendum Note - Robert Fowler M.D. - 12/30/2020 8:34 AM KEYSMITH Addended by: ROBERT FOWLER on: 12/30/2020 08:34 AM Modules accepted: Orders MITH Telephone Encounter - Zuly Alex R.N. - 12/29/2020 4:48 PM CST The patient telephones back today. She did present to the local ED in [place] for evaluation of her vertigo. She shares [...] get in contact with her [facility] neurologist. The patient reports that at her [...] 911 [address] have someone drive her to [facility] as well. She agrees to call 911 for recurrent episodes. RECOMMENDED LEVEL OF CARE. The patient/caller is willing and able to follow the nurse's recommendation. RESPONSE TO ADVICE GIVEN. Patient/caller able to teach back. REFERENCES UTILIZED. Nursing clinical judgment utilized. Other interventions or information: Provider advice. TYPE OF PHONE CALL. Symptom assessment. MITH Telephone Encounter - Robert Fowler M.D. - [...] by: Robert Fowler M.D. 12/23/20 8:21 AM KEYSMITH MITH Telephone Encounter - Zuly Alex R.N. - 12/22/2020 5:25 PM CST 5:17 pm. Tried calling to assure she could reach her son to take her to the ED. No answer. MITH Telephone Encounter - Zuly Alex R.N. - [...] her to the nearest emergency room or [id number]. She expressed concerns about going to the [...] the nearest ED which would be in [place]. He did not answer. I offered to [...] advice. TYPE OF PHONE CALL. Symptom assessment. MITH Telephone Encounter - Robert Fowler M.D. - 12/22/2020 3:29 PM CST Please call patient in triage whether she needs to be seen in the local emergency department for concern of acute stroke? MITH documented in this encounter Plan of Treatment Upcoming Encounters Date Type Specialty Care Team Description 09/01/2022 Clinical Communication Admitting/Central Scheduling 09/06/2022 Appointment Radiology Alfredo Herrera O.P.A.-C. [address] [place] [address] 09/06/2022 Office Visit Orthopedic Surgery Cyrus Polk M.D. [address] [place] [phone] Scheduled Referrals Name Type Priority Associated Diagnoses Order S chedule Video anyplace Outpatient Referral Routine Stroke Cerebrovascu lar Expected: visit Accident Personal 12/30/2020 , History Expires: 12/30/2023 documented as of this encounter Results CT Head Neck Angiogram with IV Contrast (01/30/2021 3:24 PM KEYSMITH) Anatomical Region Laterality Modality Head and Neck, Neuroradiology RST LOS, N/A C omputed Tomography, Computed Neuroradiology ARZ LOS, Neuroradiology T omography FLA [facility] Specimen (Source) Anatomical Collection Method Collection Time Re ceived Time Location / / Volume Laterality 01/30/2021 2:25 PM KEYSMITH Impressions 01/30/2021 3:18 PM KEYSMITH 1. 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 Slightly decreased high-grade stenosis a t the V3/4 junction with increased flow in the distal V4 segment. 2. Evolving, now chronic right cerebella r infarct. 3. 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 Narrative 01/30/2021 3:18 PM KEYSMITH EXAM: CT HEAD NECK ANGIOGRAM WITH IV [...] normal caliber bilater al MCAs, ACAs and health and safety inspector. Patent anterior and right posterior communicating arteri [...] normal caliber bilater al MCAs, ACAs and health and safety inspector. Patent anterior and right posterior communicating arteri [...] Angiogram with IV Contrast (12/31/2020 3:34 PM KEYSMITH) Anatomical Region Laterality Modality Head and Neck, Neuroradiology RST LOS, N/A C omputed Tomography, Computed Neuroradiology ARZ LOS, Neuroradiology T omography FLA LOS Specimen (Source) Anatomical Collection Method Collection Time Re ceived Time Location / / Volume Laterality 12/31/2020 3:49 PM KEYSMITH Impressions 12/31/2020 4:54 PM KEYSMITH 1. Evolving right cerebellar infarct with decreased [...] oid ICA aneurysms. Narrative 12/31/2020 4:54 PM KEYSMITH EXAM: CT HEAD WITHOUT IV CONTRAST, CT [...] discussed with ordering physici Dr. Fazal abbasi ([id number]) at 4:54 PM on 12/31/2020. Procedure Note [...] Findings discussed with ordering physici anDr. Fowler ([id number]) at 4:54 PM on 12/31/2020. IMPRESSION: 1. [...] Head without IV Contrast (12/31/2020 3:34 PM KEYSMITH) Anatomical Region Laterality Modality Head, Neuroradiology RST LOS, N/A Computed T omography, Computed Neuroradiology ARZ LOS, Neuroradiology T omography FLA LOS Specimen (Source) Anatomical Collection Method Collection Time Re ceived Time Location / / Volume Laterality 12/31/2020 3:49 PM KEYSMITH Impressions 12/31/2020 4:54 PM KEYSMITH 1. Evolving right cerebellar infarct with decreased [...] oid ICA aneurysms. Narrative 12/31/2020 4:54 PM KEYSMITH EXAM: CT HEAD WITHOUT IV CONTRAST, CT [...] discussed with ordering physici Dr. Fazal abbasi ([id number]) at 4:54 PM on 12/31/2020. Procedure Note [...] Findings discussed with ordering Dr. Fazal ching ([id number]) at 4:54 PM on 12/31/2020. IMPRESSION: 1. [...]
--- OUTSIDE RECORDS SUMMARY | 2022-08-17 07:01 | XMS_ITS | Encounter Summary ---
:1965 Author Organization [facility] Address [address] [place] [address] Care Team Providers Name Role Phone Unavailable Primary Care Provider Unavailable Reason for Visit Reason Comments Tahmina/Fazal Encounter Details Date Type Department Care Team Description 01/26/2021 Clinical Communication Department of Robert Fowler W8B/Scharf Neurology in .. [place], [place] 200 [facility] 200 [place] [phone] Social History Tobacco Use Types Packs/Day Years [...] you attend samaritan or Patient refused 2021 evangelical services? Do [...] 01/26/2021 5:19 PM CST Great thank you E MAKER Addendum Note - Robert Fowler M.D. - 01/26/2021 2:50 PM BRINE MAKER Addended by: ROBERT FOWLER on: 01/26/2021 02:50 PM Modules accepted: Orders E MAKER Telephone Encounter - Robert Fowler M.D. - 01/26/2021 2:49 PM CST Believe MRI is ordered now. E MAKER Telephone Encounter - Robert Fowler M.D. - 01/26/2021 2:47 PM CST I am sorry to learn of the patient's additional symptoms Unfortunately we cannot react as quickly as the emergency department which was recommended locally I will order a brain MRI and in-person or video visit to follow-up. Thank you E MAKER Telephone Encounter - Allyssa Amaya Yomi - 01/26/2021 12:56 PM CST Patient calls checking the status of this request. Thank you. E MAKER documented in this encounter Plan of Treatment Upcoming Encounters Date Type Specialty Care Team Description 09/01/2022 Clinical Communication Admitting/Central Scheduling 09/06/2022 Appointment Radiology Alfredo Herrera O.P.A.-C. [address] [place] [address] 09/06/2022 Office Visit Orthopedic Surgery Cyrus Polk M.D. [address] [place] [address] documented as of this encounter Visit Diagnoses Diagnosis Stroke Cerebrovascular Accident Personal History - Primary documented in this encounter Additional Health Concerns Assessment Noted Time PHQ-9 Depression Total Score: 5 04/05/2019 8:00 AM CDT documented as of this encounter
--- OUTSIDE RECORDS SUMMARY | 2022-08-17 07:01 | XMS_ITS | Encounter Summary ---
:1965 Author Organization [facility] Address [address] [place] [address] Care Team Providers Name Role Phone Unavailable Primary Care Provider Unavailable Encounter Details Date Type Department Care Team Description 01/05/2021 Anticoagulation Visit Department of Neurology Elvira Villalta in [facility] potato peeler RBrittonNBritton 1216 [facility] [address] [place] [phone] Social History Tobacco Use Types Packs/Day Years [...] you attend jain or Patient refused 2021 jehovah's witness services? [...] an INR at her outside clinic in [place], [place] today and I called the lab [phone] and was told she did not report [...] advised for today, she report to the [place] lab as scheduled. Ms. Mosquera states she will do that. RECOMMENDED LEVEL OF CARE. The patient/caller is willing and able to follow the nurse's recommendation. RESPONSE TO ADVICE GIVEN. Patient/caller able to teach back. REFERENCES UTILIZED. Nursing clinical judgment utilized. Other interventions or information: Provider advice. TYPE OF PHONE CALL. INR management CONSULTANT Elvira Villalta R.N. - 01/05/2021 4:06 PM CST Patient's INR today is 1.47. Discussed with Dr. Neri Acevedo ([phone]) who advises that the patient take 7.5 [...] OF PHONE CALL. Test results, symptom assessment. CONSULTANT documented in this encounter Plan of Treatment Upcoming Encounters Date Type Specialty Care Team Description 09/01/2022 Clinical Communication Admitting/Central Scheduling 09/06/2022 Appointment Radiology Alfredo Herrera O.P.A.-C. [address] [place] [address] 09/06/2022 Office Visit Orthopedic Surgery Cyrus Polk M.D. [address] [place] [address] documented as of this encounter Procedures Procedure Name Priority Date/Time Associated Comments Diagnosis PROTHROMBIN TIME Routine 01/05/2021 3:15 PM Resul ts for this (PT), P CROP CONSULTANT procedure are i n the results section. documented in this encounter Results Prothrombin Time (PT) (01/05/2021 3:15 PM CROP CONSULTANT) P athologist Signature EXT INR 1.47 OTHER (SPECIFY IN ASSISTANT TEACHER) Specimen (Source) Anatomical Collection Method Collection Time Re ceived Time Location / / Volume Laterality Blood (Blood, 01/05/2021 3:15 PM Venous) CROP CONSULTANT Narrative This result has an attachment that is no t available. Resulting Agency Comment [facility] Historical Provider LAB BLOOD ADD-ON Performing Organization Address City/State/ZIP Code Phon e Number OTHER (SPECIFY IN ASSISTANT TEACHER) OTHER (SPECIFY IN ASSISTANT TEACHER) N/A documented in this encounter Visit Diagnoses Not on filedocumented in this encounter Additional Health Concerns Assessment Noted Time PHQ-9 Depression Total Score: 5 04/05/2019 8:00 AM CDT documented as of this encounter
--- OUTSIDE RECORDS SUMMARY | 2022-08-17 07:01 | XMS_ITS | Encounter Summary ---
:1965 Author Organization [facility] Address [address] [place] [address] Care Team Providers Name Role Phone Unavailable Primary Care Provider Unavailable Encounter Details Date Type Department Care Team Description 01/07/2021 Anticoagulation Visit Department of Neurology Zuly Alex in [facility] raúl SkaggsNBritton 1216 [facility] [address] [place] [phone] Social History Tobacco Use Types Packs/Day Years [...] you attend orthodoxy or Patient refused 2021 rastafarian services? Do [...] is 2.28. Discussed with Dr. Ashley Castrejon ([phone]) who advises that the patient take 5 [...] PHONE CALL. Test results, symptom assessment. ING STITCH REMOVER documented in this encounter Plan of Treatment Upcoming Encounters Date Type Specialty Care Team Description 09/01/2022 Clinical Communication Admitting/Central Scheduling 09/06/2022 Appointment Radiology Alfredo Herrera O.P.A.-C. [address] [place] [address] 09/06/2022 Office Visit Orthopedic Surgery Jam, Cyrus W, M.D. [address] [place] [address] documented as of this encounter Procedures Procedure Name Priority Date/Time Associated Diagnosis Comme nts PROTHROMBIN TIME (PT), Routine 01/07/2021 Resul ts for this P procedure are i n the results section . documented in this encounter Results Prothrombin Time (PT) (01/07/2021) P athologist Signature EXT INR 2.28 OTHER (SPECIFY IN TRIAL ATTORNEY) Specimen (Source) Anatomical Location Collection Method / Collectio n Time Received Time / Laterality Volume Blood (Blood, 01/07/2021 Venous) Narrative This result has an attachment that is no t available. Historical Provider LAB BLOOD ADD-ON Performing Organization Address City/State/ZIP Code Phon e Number OTHER (SPECIFY IN TRIAL ATTORNEY) OTHER (SPECIFY IN TRIAL ATTORNEY) N/A documented in this encounter Visit Diagnoses Not on filedocumented in this encounter Additional Health Concerns Assessment Noted Time PHQ-9 Depression Total Score: 5 04/05/2019 8:00 AM CDT documented as of this encounter
--- OUTSIDE RECORDS SUMMARY | 2022-08-17 07:01 | XMS_ITS | Encounter Summary ---
:1965 Author Organization [facility] Address [address] [place] [address] Care Team Providers Name Role Phone Unavailable Primary Care Provider Unavailable Encounter Details Date Type Department Care Team Description 01/20/2021 Anticoagulation Visit Department of Neurology Elvira Villalta in [facility] raúl SkaggsNBritton 1216 [facility] [address] [place] [phone] Social History Tobacco Use Types Packs/Day Years [...] you attend taoist or Patient refused 2021 church services? Do [...] call from Dr. Rosalva Aguila's nurse at [facility]. She states they have received our fax [...] Transfer of anticoagulation management back to PCP. CTOR OF GOVERNMENT SALES documented in this encounter Plan of Treatment Upcoming Encounters Date Type Specialty Care Team Description 09/01/2022 Clinical Communication Admitting/Central Scheduling 09/06/2022 Appointment Radiology Alfredo Herrera O.P.A.-C. [address] [place] [phone] 09/06/2022 Office Visit Orthopedic Surgery Cyrus Polk M.D. [address] [place] [phone] documented as of this encounter Visit Diagnoses Not on filedocumented in this encounter Additional Health Concerns Assessment Noted Time PHQ-9 Depression Total Score: 5 04/05/2019 8:00 AM CDT documented as of this encounter
--- OUTSIDE RECORDS SUMMARY | 2022-08-17 07:01 | XMS_ITS | Encounter Summary ---
:1965 Author Organization [facility] Address [address] [place] [address] Care Team Providers Name Role Phone Unavailable Primary Care Provider Unavailable Encounter Details Date Type Department Care Team Description 12/31/2020 Orders Only Department of Robert Diehl Stroke Cereb rovascular Accident Personal History (Primary Dx); Neurology in L, MBrittonD. Thrombosis Arterial (HCC) [place], [place] 200 [facility] 200 [place] [phone] Social History Tobacco Use Types Packs/Day Years [...] you attend presybeterian or Patient refused 2021 jewish services? Do [...] Appointment Radiology Alfredo Herrera O.P.A.-C. [address] [place] [address] 09/06/2022 Office Visit Orthopedic Surgery Cyrus Plok M.D. [address] [place] [address] documented as of this encounter Visit Diagnoses Diagnosis Stroke Cerebrovascular Accident Personal History - Primary Thrombosis Arterial (HCC) documented in this encounter Additional Health Concerns Assessment Noted Time PHQ-9 Depression Total Score: 5 04/05/2019 8:00 AM CDT documented as of this encounter
--- OUTSIDE RECORDS SUMMARY | 2022-08-17 07:01 | XMS_ITS | Encounter Summary ---
:1965 Author Organization [facility] Address [address] [place] [address] Care Team Providers Name Role Phone Unavailable Primary Care Provider Unavailable Reason for Visit Outpatient (Routine) - Closed Specialty Diagnoses / Procedures Referred By Contact Refer red To Contact Video Medicine Diagnoses Stroke Cerebrovascular Accident Personal History Robert Diehl [place] M.D. [address] [place] [address] Referral ID Status Reason Start Date Expiration Date Visits Requ ested Visits Authorized [id number] Closed 12/30/2020 12/30/2021 1 1 Encounter Details Date Type Department Care Team Description 02/02/2021 Virtual Visit Department of Robert Diehl Stroke Cere brovascular Neurology jimmy Celaya M.D. Accident Personal [place], [place] 200 [facility] History 200 [place] [phone] Social History Tobacco Use Types Packs/Day Years [...] 05/17/2022 organizations such as lutheran groups, unions, fraAudigence or athletic groups, or school groups? How [...] department over the weekend was transferred to [facility] service where she is currently admitted. Therefore she will not be present for today's 8:00 a.m. Outpatient consultation. Highly appreciative of the [facility] Stroke Service cares. No charge. Electronically signed by: Robert Diehl M.D. 02/02/21 7:46 AM FUR STYLIST STYLIST documented in this encounter Plan of Treatment Upcoming Encounters Date Type Specialty Care Team Description 09/01/2022 Clinical Communication Admitting/Central Scheduling 09/06/2022 Appointment Radiology Alfredo Herrera O.P.A.-C. [address] [place] [phone] 09/06/2022 Office Visit Orthopedic Surgery Cyrus Polk M.D. [address] [place] [address] documented as of this encounter Visit Diagnoses Diagnosis Stroke Cerebrovascular Accident Personal History documented in this encounter Additional Health Concerns Assessment Noted Time PHQ-9 Depression Total Score: 23 02/02/2021 11:[address] documented as of this encounter
--- OUTSIDE RECORDS SUMMARY | 2022-08-17 07:01 | XMS_ITS | Encounter Summary ---
:1965 Author Organization [facility] Address [address] [place] [address] Care Team Providers Name Role Phone Unavailable Primary Care Provider Unavailable Encounter Details Date Type Department Care Team Description 01/16/2021 Anticoagulation Visit Department of Elvira Villalta ([facility]) (Primary Dx); Neurology in [facility], R[facility]N. [facility] Anticoagulant Treatment [address] [place] [address] [place], [place] [phone] (Work) [phone] Social History Tobacco Use Types Packs/Day Years [...] you attend nondenominational or Patient refused 2021 hoahaoism services? Do [...] Target INR 2.0-3.[address] Argenis Diehl ([phone]). The patient was scheduled for an INR recheck on 01/19/21 but we received a message that she had it drawn today, 01/16/21, by [facility] Nurse. I spoke with RADHA Roman [facility] and she relays that the home POC INR today is 3.9. I discussed this with Dr. Argenis Diehl ([phone]) who advises that the patient follow a [...] primary care provider, Dr. Neri Blackwell, [facility], [place], [place]. I have put in a call for Dr. Blackwell's care team to call us back. Will schedule an INR recheck for 01/20/21. I will fax a standing INR order to RADHA Roman, [facility], phone # [phone], fax #[phone]. She will fax results back to us. [...] OF PHONE CALL. Test results, symptom assessment. ICER MACHINE documented in this encounter Plan of Treatment Upcoming Encounters Date Type Specialty Care Team Description 09/01/2022 Clinical Communication Admitting/Central Scheduling 09/06/2022 Appointment Radiology Alfredo Herrera O.P.A.-C. [address] [place] [phone] 09/06/2022 Office Visit Orthopedic Surgery Cyrus Polk M.D. [address] [place] [phone] documented as of this encounter Procedures Procedure Name Priority Date/Time Associated Comments Diagnosis PROTHROMBIN TIME Routine 01/16/2021 2:10 PM Resul ts for this (PT), P ROLL ICER MACHINE procedure are i n the results section. documented in this encounter Results Prothrombin Time (PT) (01/16/2021 2:10 PM ROLL ICER MACHINE) P athologist Signature EXT INR 3.90 OTHER (SPECIFY IN WAREHOUSE HAND) Specimen (Source) Anatomical Collection Method Collection Time Re ceived Time Location / / Volume Laterality Blood (Blood, 01/16/2021 2:10 PM Venous) ROLL ICER MACHINE Resulting Agency Comment [facility] Historical Provider LAB BLOOD ADD-ON Performing Organization Address City/State/ZIP Code Phon e Number OTHER (SPECIFY IN WAREHOUSE HAND) OTHER (SPECIFY IN WAREHOUSE HAND) N/A documented in this encounter Visit Diagnoses Diagnosis Stroke (HCC) - Primary Senior Care (Current) Anticoagulant Treatm ent documented in this encounter Additional Health Concerns Assessment Noted Time PHQ-9 Depression Total Score: 5 04/05/2019 8:00 AM CDT documented as of this encounter
--- OUTSIDE RECORDS SUMMARY | 2022-08-17 07:01 | XMS_ITS | Encounter Summary ---
:1965 Author Organization [facility] Address [address] [place] [address] Care Team Providers Name Role Phone Unavailable Primary Care Provider Unavailable Reason for Visit Reason Comments Michel Encounter Details Date Type Department Care Team Description 09/11/2020 Clinical Communication Department of Robert Diehl W8B/Scharf Neurology in [place], [place] 200 [facility] 200 [place] [phone] Social History Tobacco Use Types Packs/Day Years [...] you attend taoist or Patient refused 2021 episcopal services? Do [...] Appointment Radiology Alfredo Herrera O.P.A.-C. [address] [place] [address] 09/06/2022 Office Visit Orthopedic Surgery Cyrus Polk M.D. [address] [place] [address] documented as of this encounter Visit Diagnoses Not on filedocumented in this encounter Additional Health Concerns Assessment Noted Time PHQ-9 Depression Total Score: 5 04/05/2019 8:00 AM CDT documented as of this encounter
--- OUTSIDE RECORDS SUMMARY | 2022-08-17 07:01 | XMS_ITS | Encounter Summary ---
:1965 Author Organization [facility] Address [address] [place] [address] Care Team Providers Name Role Phone Unavailable Primary Care Provider Unavailable Encounter Details Date Type Department Care Team Description 02/02/2021 Orders Only Department of Neurology in Bisi Acevedo D.O. [place], [place] 200 [facility] 200 [place] [address] [phone] (Wo rk) Social History Tobacco Use Types [...] you attend restorationism or Patient refused 2021 mandaen services? Do [...] Appointment Radiology Alfredo Herrera O.PBrittonAOmar [address] [place] [phone] 09/06/2022 Office Visit Orthopedic Surgery Cyrsu Polk M.D. [address] [place] [phone] documented as of this encounter Visit Diagnoses Not on filedocumented in this encounter Additional Health Concerns Assessment Noted Time PHQ-9 Depression Total Score: 23 02/02/2021 11:[address] documented as of this encounter
--- OUTSIDE RECORDS SUMMARY | 2022-08-17 07:01 | XMS_ITS | Encounter Summary ---
:1965 Author Organization [facility] Address [address] [place] [address] Care Team Providers Name Role Phone Unavailable Primary Care Provider Unavailable Reason for Referral MRI/CAT/PET Scan (Routine) - Closed Specialty Diagnoses / Procedures Referred By Contact Refer red To Contact Radiology Diagnoses Robert Akhtar M.D. 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 [facility] Procedures CT Head Neck Angiogram with IV Contrast [address] [place], [place] [address] Referral ID Status Reason Start Date Expiration Date Visits Requ ested Visits Authorized [id number] Closed 12/31/2020 12/31/2021 1 1 Encounter Details Date Type Department Care Team Description 01/30/2021 Hospital Encounter Department of Radiology, Akhil Diehl Ataxia [facility], in M.D. [place], [place] [address] [facility] [address] [place] [phone] (Babatunde billings) Social History Tobacco Use Types [...] you attend bahai or Patient refused 2021 buddhism services? Do [...] Appointment Radiology Alfredo Herrera O.P.A.-C. [address] [place] [phone] 09/06/2022 Office Visit Orthopedic Surgery Cyrus Polk M.D. [address] [place] [phone] documented as of this encounter Procedures Procedure Name Priority Date/Time Associated Comments Diagnosis CT HEAD NECK RAD - Routine 01/30/2021 3:24 Ataxia Results for this ANGIOGRAM WITH IV (most inpatients PM BORING MACHINE OPERATOR HORIZONTAL proced ure are in CONTRAST and all the results outpatients) section. documented in this encounter Results CT Head Neck Angiogram with IV Contrast (01/30/2021 3:24 PM BORING MACHINE OPERATOR HORIZONTAL) Anatomical Region Laterality Modality Head and Neck, Neuroradiology RST LOS, N/A C omputed Tomography, Computed Neuroradiology ARZ LOS, Neuroradiology T omography FLA LOS Specimen (Source) Anatomical Collection Method Collection Time Re ceived Time Location / / Volume Laterality 01/30/2021 2:25 PM BORING MACHINE OPERATOR HORIZONTAL Impressions 01/30/2021 3:18 PM BORING MACHINE OPERATOR HORIZONTAL 1. 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 Slightly decreased high-grade stenosis a t the V3/4 junction with increased flow in the distal V4 segment. 2. Evolving, now chronic right cerebella r infarct. 3. 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 Narrative 01/30/2021 3:18 PM BORING MACHINE OPERATOR HORIZONTAL EXAM: CT HEAD NECK ANGIOGRAM WITH IV [...] normal caliber bilater al MCAs, ACAs and head worker. Patent anterior and right posterior communicating arteri [...] normal caliber bilater al MCAs, ACAs and head worker. Patent anterior and right posterior communicating arteri [...] mg iodine/mL solution Given 01/30/2021 2:29 PM BORING MACHINE OPERATOR HORIZONTAL 1 00 mL 1-200 mL (OMNIPAQUE) 1-200 mL, intravenous, Once in imaging, contrast, Starting on Tue01/30/21 at 1355, For 1 dose, Imaging Protocol Orders, Dose per Radiant Medication Guidelines sodium chloride (PF) 0.9 % injection 1-1 00 mL Given 01/30/2021 2:29 PM BORING MACHINE OPERATOR HORIZONTAL 35 mL 1-100 mL, intravenous, Once, On Tue01/30/21 at 1400, For 1 dose, Imaging Protocol Orders documented in this encounter Additional Health Concerns Assessment Noted Time PHQ-9 Depression Total Score: 5 04/05/2019 8:00 AM CDT documented as of this encounter
--- OUTSIDE RECORDS SUMMARY | 2022-08-17 07:01 | XMS_ITS | Encounter Summary ---
:1965 Author Organization [facility] Address [address] [place] [address] Care Team Providers Name Role Phone Unavailable Primary Care Provider Unavailable Reason for Referral Outpatient (Routine) - Closed Specialty Diagnoses / Procedures Referred By Contact Refer red To Contact Home Health Care Diagnoses Stroke (HCC) Chronic Pain Syndrome Stroke Cerebrovascular Accident Personal History Ric Quinn M.D., M.S. [address] [place] [phone] Referral ID Status Reason Start Date Expiration Date Visits Requ ested Visits Authorized [id number] Closed 02/03/2021 02/03/2022 1 1 DENCE HALL DIRECTOR Encounter Details Date Type Department Care Team Description 01/31/2021 - Hospital Encounter [facility] Blanca, Stroke (H CC) (Primary Dx); [facility] Syndrome; [facility], [address] [place] [address] Stroke Cerebrovascular Accident Personal History [facility], [facility] [phone] floor [phone] [place] [address] (Work) [place], [place] [phone] (Fax) [phone] Social History Tobacco Use Types Packs/Day Years [...] you attend cheondoism or Patient refused 2021 episcopalian services? Do [...] Comments Blood Pressure 133/71 02/03/2021 5:15 PM RESIDENCE HALL DIRECTOR Pulse 92 02/03/2021 5:15 PM RESIDENCE HALL DIRECTOR Temperature 36.5 ??C (97.7 ??F) 02/03/2021 5:15 PM RESIDENCE HALL DIRECTOR Respiratory Rate 17 02/03/2021 5:15 PM RESIDENCE HALL DIRECTOR Oxygen Saturation 97% 02/03/2021 5:15 PM RESIDENCE HALL DIRECTOR Inhaled Oxygen Concentration - - Weight 78.8 kg (173 lb 11.6 oz) 01/31/2021 9:39 PM RESIDENCE HALL DIRECTOR Height 152.4 cm (5') 01/31/2021 9:39 PM RESIDENCE HALL DIRECTOR Body Mass Index 33.93 01/31/2021 9:39 PM RESIDENCE HALL DIRECTOR documented in this encounter Discharge Summaries Malcom Torres M.D. - 02/03/2021 2:24 PM CST DISCHARGE SUMMARY BRIEF OVERVIEW Hospital: [facility] Discharge Provider: Nan Rios M.D. Primary Team: [facility] Neurology Stroke and Cerebrovascular Disease No [...] Shewas subsequently admitted directly to [facility] Neurology Stroke service for further workup and [...] ??C, temperature source Oral, resp. rate 17, cnqrni889.4 cm, weight 78.8 kg, SpO2 94 %. [...] were provided to the patient and caregiver(s). DENCE HALL DIRECTOR documented in this encounter Discharge Instructions Discharge InstructionsLaquita Raines - 02/02/2021 7:23 AM CST You were discharge from the Neurology Stroke Service. Please Identify this service name if you call with questions after your hospitalization. DENCE HALL DIRECTOR Discharge Instr - ActivityLeonides Liang PBrittonT. - 02/02/2021 1:13 PM RESIDENCE HALL DIRECTOR Physical Therapy Discharge Summary MOBILITY RESTRICTIONS/PRECAUTIONS: Fall [...] 02/02/2021 by Leonides Liang P.T. Contact information: [facility], [address] Melissa, DENCE HALL DIRECTOR AttachmentsThe following attachments cannot be sent through Care Everywhere. 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 - 02/03/2021 1:57 PM CST No PT intervention today as patient was at an MRI this morning, now stating that she has just gone for a walk and plans are for dc to home with intermittent assist from her son. Helen Greer, PT DENCE HALL DIRECTOR Catalina Panchal, R.N. - 02/03/2021 1:49 PM CST Patient discussed at Stroke Multidisciplinary Rounds. Plan for the day: Case Management Following, PT/OT, Medication Management, MRI/MRA Plan for the Stay: Stroke w/u Discharge barriers: Inpatient Needs Recommended discharge disposition: [facility] w/[facility] DENCE HALL DIRECTOR Nan Rios M.D. - 02/03/2021 10:36 AM [...] pain syndrome, fibromyalgia, and nicotine use disorder. DENCE HALL DIRECTOR Leonides Kumar M.D. - 02/03/2021 7:09 AM [...] status: Prior Disposition: Home Plan discussed with [facility] Neurology Stroke and Cerebrovascular Disease Rnp, Dr. Rios. Please page the [facility] Neurology Stroke and Cerebrovascular Disease service pager at [phone] with any questions. Leonides Kumar M.D. DENCE HALL DIRECTOR Makenzie Figueredo O.T.Katarina - 02/02/2021 3:24 PM [...] home to ensure her safety. From the Certified Nurse's perspective, the patient is not an inpatient [...] Treatment Time (min): 32 min MILA Cardoza DENCE HALL DIRECTOR Catalina Panchal RBetsy - 02/02/2021 2:31 PM CST Patient discussed at Stroke Multidisciplinary Rounds. Plan for the day: MRI, Case Management Consult, PT/OT, Medication Management Plan for the Stay: Stroke w/u Discharge barriers: Inpatient Needs Recommended discharge disposition: [facility] w/C DENCE HALL DIRECTOR Leonides Liang P.T. - 02/02/2021 12:58 PM [...] Time (min): 32 min Leonides Liang P.T. DENCE HALL DIRECTOR Nan Rios M.D. - 02/02/2021 10:27 AM [...] pain syndrome, fibromyalgia, and nicotine use disorder. DENCE HALL DIRECTOR Jessei Rock Pharm.D., R.Ph. - 02/02/2021 10:21 AM CST Images from the original note were not included. Admission Medication History Note Adherence issues: Unable to assess Medication list source: Pharmacy or dispense records. Medication list provided by [facility] in [place]. Most recent dispensing information obtained. Multiple changes [...] by mouth 2 (two) times a day. DENCE HALL DIRECTOR Leonides Kumar M.D. - 02/02/2021 6:55 AM [...] status: Prior Disposition: Home Plan discussed with [facility] Neurology Stroke and Cerebrovascular Disease Rnp, Dr. Rios. Please page the [facility] Neurology Stroke and Cerebrovascular Disease service pager at [phone] with any questions. Leonides Kumar M.D. DENCE HALL DIRECTOR Leonides Kumar M.D. - 02/01/2021 6:36 AM [...] status: Prior Disposition: Home Plan discussed with [facility] Neurology Stroke and Cerebrovascular Disease Rnp, Dr. Rios. Please page the [facility] Neurology Stroke and Cerebrovascular Disease service pager at [phone] with any questions. Leonides Kumar M.D. DENCE HALL DIRECTOR documented in this encounter H&P Notes Nan [...] segment. ?? The patient presented to the [facility] with acute onset vertigo which occurred yesterday afternoon while she was at [facility]. She bent forward and complained of neck pain which radiated to the top of her head. She also complained of warmth all over her body and generalised weakness. ?? With effort, she was able to ambulate back to her car with her groceries, where she met her son, whothen took her to the [facility]. There, the patient had a head CT the chronic left cerebellar infarct. There was also concern for a new infarct in the right thalamus. INR was 1.35. She was transferred to [facility] for further evaluation. ?? Today, she feels [...] pain syndrome, fibromyalgia, and nicotine use disorder. DENCE HALL DIRECTOR Marbella Cutler M.D. - 02/01/2021 2:55 AM [...] V4 segment. The patient presented to the [facility] with acute onset vertigo which occurred yesterday afternoon while she was at [facility]. She bent forward and complained of neck pain which radiated to the top of her head. She also complained of warmth all over her body and generalised weakness. With effort, she was able to ambulate back to her car with her groceries, where she met her son, whothen took her to the [facility]. There, the patient had a head CT the chronic left cerebellar infarct. INR was 1.35. She was transferred to [facility] for further evaluation. On the floor, she was hemodynamically stable but complained of ongoing vertigo, with difficulty keeping her eyes open. Social history: she is currently unemployed but previously worked at a [employer]. She is fully independent of her ADLs [...] admitting resident. Please page the Stroke service [phone] with questions/concerns. DENCE HALL DIRECTOR Gerald England M.D. - 01/31/2021 9:16 PM [...] Shewas subsequently admitted directly to [facility] Neurology Stroke service for further workup and [...] COMPUTER NAVIGATION.; Surgeon: Darlin Olmedo M.D.; Location: [facility] ROMB OR ??? HYSTERECTOMY ??? JOINT [...] More than three times a week Attends episcopalian service: Patient refused Active member of club [...] and normal caliber bilateral MCAs, ACAs and oracle technical architect. Patent anterior and right posterior communicating arteries. [...] page the Cerebrovascular Neurology Service pager at [phone] with any questions or concerns. [facility] Stroke Neurology Service Neuropsychology Division Chief: Nan England M.D. STROKE DOCUMENTATION: Stroke Center [...] to hemorrhage and/or hemorrhagic risk Prestroke modified [place] Score (mRS): 1 - No significant disability. [...] 30 or greater) and hormonal contraceptive use DENCE HALL DIRECTOR documented in this encounter Consult Notes Pamela Middleton M.S., L.Sapna.NeriC., C.T.T.S. - 02/03/2021 10:08 AM CSTAssociated Order(s): IP CONSULT TO INTERNAL MEDICINE NICOTINE DEPENDENCE; IP CONSULT TO INTERNAL MEDICINE NICOTINE DEPENDENCE SUBJECTIVE Consults REASON FOR CONSULT Admitting Service: Neurology Reason for Consult: Tobacco Use Disorder HISTORY OF PRESENT ILLNESS Angie Bender is a 55 y.o. female who was seen at [facility] and is being evaluated for tobacco use [...] provided the patient with educational materials and [facility] contact information. Patient is unable [...] Middleton M.S., Delvin, C.T.T.S. 02/03/2021 10:08 AM RESIDENCE HALL DIRECTOR DENCE HALL DIRECTOR Catalina Panchal, RBrittonNBritton - 02/02/2021 2:11 PM CSTAssociated Order(s): IP CONSULT TO CARE MANAGEMENT Discharge Planning Assessment SUBJECTIVE Referral Data Referral Source: Early Screen for Discharge Planning Referral Reason: Discharge Planning Discharge Planning: Home health Who was present during the interview?: Patient Head Setter Services Used: No Patient Information Primary Caregiver: Self Legal Information Legal Decision Maker: Self Legal Status: Voluntary Caregiver Information Self Services Requested Home Health: half-way Level of Care: Intermediate OBJECTIVE Functional Status (ADLs) Functional Status: Minimum assistance Assistive Devices: Walker, Shower chair, Eyeglasses, Hearing aids Dressing: Independent Feeding: Independent Bathing: Independent Grooming: Independent Toileting: Independent Transfer to/from Bed, Chair Etc.: Independent Mobility: Independent Meal Prep: Independent Medication Setup/Administration: Needs assistance Telephone Use: Independent Housekeeping: Independent Shopping: Independent Managing Finances: Independent Behavior: Oriented Communication: Talks, Understands speaking, Understands Taiwanese Environmental Supports Home Environment: House Anticipated Needs/Assistive [...] Nurse visit Home Care Agency Name : [facility] Anticipated Discharge Destination: [place]-Health [place] [facility] Recommended Discharge Services: Nursing Does the patient need discharge transport arranged?: No ASSESSMENT / PLAN Plan Assessment: The executive vice president met with Angie Bender to discuss her current hospitalization and home goingneeds. The patient was unaccompanied. The patient was a reliable historian, but was lacking completedetails at times. The role of executive vice president was reviewed. The patient reviewed her prior level of care and support system. The patient receives support from her son. The patient described her living environment as a single level home with level entry. Housekeeping, grocery shopping, meal prep, and other household responsibilities have previously been completed by patient. executive vice president discussed the patient's potential needs at dismissal based on their home setti ng, previous needs and responsibilities, homebound status, and relevant assessments with the patient. The patient will be safe and supported to return home with [facility] or previous services noted above [...] dismissal will be provided by family--son. 3. executive vice president recommended nothing at this time. 4. executive vice president provided information regarding the dismissal process. 5. executive vice president placed or requested the following hospital-based consult orders and/or referrals:None. 6. executive vice president will continue to assess for homegoing needs with the interdisciplinary team. 7. executive vice president encouraged the patient to reach out with any questions/concerns. Care Management will continue to follow. Patient to discharge with home health care. [facility] - Admitted Since 01/31/2021 The patient receives long term visits 1-2x week. She has qualified for ASSISTANT TO THE VICE PRESIDENT, homemaking, and home health aide visits, but [...] With: Alone Receives Help From: Family, Friend(s), shower room attendant ADL Assistance: Independent IADL/Homemaking Assistance: Required assistance IADL/Homemaking Assistance Comments: Has assistance with meals on wheels, cleaning, and medication management Occupational Role: On disability Prior Mobility/Functional Transfers Level of Dixie: Independent Previous Transfer/Mobility Assistance Comments: Patient reports [...] Time (min): 25 min Radha Samuel P.T. DENCE HALL DIRECTOR Rosario Lopez O.Jolanta. - 02/01/2021 3:17 PM [...] With: Alone Receives Help From: Family, Friend(s), shower room attendant ADL Assistance: Independent IADL/Homemaking Assistance: Required assistance IADL/Homemaking Assistance Comments: Has assistance with meals on wheels, cleaning, and medication management Driving: Independent Occupational Role: On disability Occupational Role Comments: Previously worked at a [employer] Prior Mobility/Functional Transfers Level of Dixie: Independent Home Living Type of Home: Apartment [...] Time (min): 60 min Rosario Lopez O.T. DENCE HALL DIRECTOR Maria M Duque M.D. - 02/01/2021 7:21 AM CSTAssociated Order(s): IP CONSULT TO PHYSICAL MEDICINE & REHABILITATION Consult received for Physical Medicine and Rehabilitation Consult Service. I reviewed the electronic health record. I have triaged to therapy only; no supervisor paper testing consult appears to be necessary at this time. If therapists or referring service feel that a supervisor paper testing review is necessary, please send a new consult request with only the Physician consult - Physical Medicine and Rehabilitation consult (hospital) item selected. DENCE HALL DIRECTOR documented in this encounter Nursing Notes Sofie [...] by: Sofie Sutton R.N. 02/03/21 5:24 PM RESIDENCE HALL DIRECTOR DENCE HALL DIRECTOR Sofie Sutton R.N. - 02/03/2021 5:20 PM [...] by: Sofie Sutton R.N. 02/03/21 5:22 PM RESIDENCE HALL DIRECTOR DENCE HALL DIRECTOR Marlene Grover R.N. - 02/03/2021 5:14 AM [...] Goal: Patient discharge needs identified Outcome: Progressing DENCE HALL DIRECTOR Mague Rudolph R.N. - 02/02/2021 5:03 AM CST Shift Goals: Clinical Goals for the Shift: patient will use call light appropriately Identify possible barriers to meeting goals/advancing plan of care: End of Shift Summary: patient met goal DENCE HALL DIRECTOR Valarie Grayson R.N. - 02/01/2021 5:59 PM CST Shift Goals: Clinical Goals for the Shift: Patient will tolerate MRI Identify possible barriers to meeting goals/advancing plan of care: Patient's vice president medical affairs End of Shift Summary: Goal not met. MRI scheduled for Tuesday related to device monitoring. Electronically signed by: Valarie Grayson R.N. 02/01/21 5:59 PM RESIDENCE HALL DIRECTOR Problem: SKIN/TISSUE INTEGRITY Goal: Skin/Tissue integrity maintained or improved Outcome: Progressing Problem: SAFETY ADULT Goal: Maintain a safe environment Outcome: Progressing Problem: SAFETY ADULT - RISK FOR FALL AND OR FALL INJURY Goal: Patient remains free from fall/fall injury Outcome: Progressing DENCE HALL DIRECTOR documented in this encounter Miscellaneous Notes Hospital [...] Shewas subsequently admitted directly to [facility] Neurology Stroke service for further workup and [...] after a CTA head/neck in 3 months. DENCE HALL DIRECTOR documented in this encounter Plan of Treatment Upcoming Encounters Date Type Specialty Care Team Description 09/01/2022 Clinical Communication Admitting/Central Scheduling 09/06/2022 Appointment Radiology Alfredo Herrera O.P.A.-C. [address] [place] [address] 09/06/2022 Office Visit Orthopedic Surgery Cyrus Polk M.D. [address] [place] [phone] Scheduled Referrals Name Type Priority Associated Diagnoses Order S [facility] Outpatient Referral Routine Stroke (HCC) Ordered: Health Referral Chronic Pain Syn drome 02/03/2021 Stroke Cerebrovascular Accident Personal History documented as of this encounter Procedures Procedure Name Priority Date/Time Associated Comments Diagnosis MR NECK ANGIOGRAM RAD - Routine 02/03/2021 Results f or WITHOUT AND WITH IV (most inpatients 12:39 PM RESIDENCE HALL DIRECTOR this procedure CONTRAST and all are in the outpatients) results section. MR BRAIN WITHOUT AND RAD - Routine 02/03/2021 Result s for WITH IV CONTRAST (most inpatients 12:34 PM RESIDENCE HALL DIRECTOR this pr ocedure and all are in the outpatients) results section. DX ABDOMEN SUPINE WITH RAD - Routine 02/02/2021 3:26 R esults for UPRIGHT OR DECUBITUS 2 (most inpatients PM RESIDENCE HALL DIRECTOR t his procedure VIEWS and all are in the outpatients) results section. PROTHROMBIN TIME (PT), Routine 02/02/2021 5:20 Re sults for P AM RESIDENCE HALL DIRECTOR this procedure are in the results section. LIPID PANEL, S Routine 02/01/2021 5:21 Results fo r AM RESIDENCE HALL DIRECTOR this procedure are in the results section. RENAL FUNCTION PANEL, S Routine 02/01/2021 5:21 R esults for AM RESIDENCE HALL DIRECTOR this procedure are in the results section. FOLATE, S Routine 02/01/2021 5:21 Results for AM RESIDENCE HALL DIRECTOR this procedure are in the results section. VITAMIN B12 ASSAY, S Routine 02/01/2021 5:21 Resu lts for AM RESIDENCE HALL DIRECTOR this procedure are in the results section. ECG Routine 01/31/2021 Results for 11:35 PM RESIDENCE HALL DIRECTOR this procedure are in the results section. SARS CORONAVIRUS 2, Routine 01/31/2021 Results for RNA, RAPID POC, V 10:32 PM RESIDENCE HALL DIRECTOR this proce dure are in the results section. ELECTROLYTE (CHEM 4) Routine 01/31/2021 9:44 Resu lts for PANEL, S/P PM RESIDENCE HALL DIRECTOR this procedure are in the results section. ACTIVATED PARTIAL Routine 01/31/2021 9:44 Results for THROMBOPLASTIN TIME PM RESIDENCE HALL DIRECTOR this pro cedure (APTT), P are in the results section. PROTHROMBIN TIME (PT), Routine 01/31/2021 9:44 Re sults for P PM RESIDENCE HALL DIRECTOR this procedure are in the results section. CBC WITH DIFFERENTIAL, Routine 01/31/2021 9:44 Re sults for B PM RESIDENCE HALL DIRECTOR this procedure are in the results section. ALANINE Routine 01/31/2021 9:44 Results for AMINOTRANSFERASE (ALT), PM RESIDENCE HALL DIRECTOR this procedure S/P are in the results section. ASPARTATE Routine 01/31/2021 9:44 Results for AMINOTRANSFERASE (AST), PM RESIDENCE HALL DIRECTOR this procedure S/P are in the results section. THYROID-STIMULATING Routine 01/31/2021 9:44 Resul ts for HORMONE-SENSITIVE PM RESIDENCE HALL DIRECTOR this proce dure (S-TSH) are in the results section. HEMOGLOBIN A1C, B Routine 01/31/2021 9:44 Results for PM RESIDENCE HALL DIRECTOR this procedure are in the results section. documented in this encounter Results MR Neck Angiogram without and with IV Contrast (02/03/2021 12:39 PM RESIDENCE HALL DIRECTOR) Anatomical Region Laterality Modality Neck, Neuroradiology RST LOS, Neuroradiology ARZ LOS, N/A Magnetic Resonance [facility] Specimen (Source) Anatomical Collection Method Collection Time Re ceived Time Location / / Volume Laterality 02/03/2021 11:37 AM RESIDENCE HALL DIRECTOR Impressions 02/03/2021 1:26 PM RESIDENCE HALL DIRECTOR 1. Infarctions in the posterior circulation of [...] technica l limitations. Narrative 02/03/2021 1:26 PM RESIDENCE HALL DIRECTOR EXAM: MR BRAIN WITHOUT AND WITH IV [...] and with IV Contrast (02/03/2021 12:34 PM RESIDENCE HALL DIRECTOR) Anatomical Region Laterality Modality Head, Brain, Neuroradiology RST LOS, Neuroradiology ARZ N/A Magnetic Resonance LOS, Neuroradiology FLA LOS Specimen (Source) Anatomical Collection Method Collection Time Re ceived Time Location / / Volume Laterality 02/03/2021 11:37 AM RESIDENCE HALL DIRECTOR Impressions 02/03/2021 1:26 PM RESIDENCE HALL DIRECTOR 1. Infarctions in the posterior circulation of [...] technica l limitations. Narrative 02/03/2021 1:26 PM RESIDENCE HALL DIRECTOR EXAM: MR BRAIN WITHOUT AND WITH IV [...] or Decubitus 2 Views (02/02/2021 3:26 PM RESIDENCE HALL DIRECTOR) Anatomical Region Laterality Modality Abdomen, Abdominal RST LOS, Abdominal ARZ LOS, Right Digital Radiography Abdominal FLA LOS Specimen (Source) Anatomical Collection Method Collection Time Re ceived Time Location / / Volume Laterality 02/02/2021 3:49 PM RESIDENCE HALL DIRECTOR Impressions 02/02/2021 3:50 PM RESIDENCE HALL DIRECTOR Spinal stimulator device with tip over the T7-8 interspace. Generator pack posterior to the left janett ac crest. Postoperative changes ventral hernia repair. Surgical marylin near the GE junction. Cholecystectomy. Lung bases are clear. Narrative 02/02/2021 3:50 PM RESIDENCE HALL DIRECTOR EXAM: ??DX ABDOMEN SUPINE WITH UPRIGHT OR [...] (ABNORMAL) Prothrombin Time (PT) (02/02/2021 5:20 AM RESIDENCE HALL DIRECTOR) Patholo gist Method Time Signature Prothrombin 16.2 (H) 9.4 - 12.5 02/02/2021 DTL Time, P sec 6:12 AM RESIDENCE HALL DIRECTOR INR 1.5 0.9 - 1.1 02/02/2021 DTL 6:12 AM RESIDENCE HALL DIRECTOR Comment: ----ADDITIONAL INFORMATION---- Standard intensity warfarin therapeutic range: 2.0 to 3.0 ?? High intensity warfarin therapeutic rang e: 2.5 to 3.5 Specimen Anatomical Collection Method Collection Time Receive d Time (Source) Location / / Volume Laterality Blood (Blood, 02/02/2021 5:20 AM 02/03/20 5:48 Venous) RESIDENCE HALL DIRECTOR AM RESIDENCE HALL DIRECTOR Leonides Kumar M.D. LAB BLOOD ADD-ON Performing Organization Address City/State/ZIP Code Phon e Number [facility] - [address] [place] [phone] [facility] [place] [address] [facility] [address] [facility] Renal Function Panel (02/01/2021 5:21 AM RESIDENCE HALL DIRECTOR) P athologist Signature Potassium, S 4.3 3.6 - 5.2 02/01/2021 DTL mmol/L 6:26 AM RESIDENCE HALL DIRECTOR Sodium, S 139 135 - 145 02/01/2021 DTL mmol/L 6:26 AM RESIDENCE HALL DIRECTOR Chloride, S 106 98 - 107 02/01/2021 DTL mmol/L 6:26 AM RESIDENCE HALL DIRECTOR Bicarbonate, S 25 22 - 29 02/01/2021 DTL mmol/L 6:26 AM RESIDENCE HALL DIRECTOR Anion Gap 8 7 - 15 02/01/2021 DTL 6:26 AM RESIDENCE HALL DIRECTOR BUN (Blood Urea 14 6 - 21 02/01/2021 DTL Nitrogen), S mg/dL 6:26 AM RESIDENCE HALL DIRECTOR Creatinine 0.74 0.59 - 02/01/2021 DTL 1.04 mg/dL 6:26 AM RESIDENCE HALL DIRECTOR eGFR-Non >90 >=60 02/01/2021 DTL Black/ mL/min/BSA 6:26 AM RESIDENCE HALL DIRECTOR Portuguese Comment: ----ADDITIONAL INFORMATION---- Estimated GFR calculated using the 2009 CKD_EPI creatinine equation. eGFR-Black/ >90 >=60 mL/min/BSA 2020 6:26 AM RESIDENCE HALL DIRECTOR DTL Comment: ----ADDITIONAL INFORMATION---- Estimated GFR calculated using the 2009 CKD_EPI creatinine equation. Calcium, Total, S 9.2 8.6 - 10.0 mg/dL 02/01/2021 6:26 AM RESIDENCE HALL DIRECTOR DTL Glucose, S 96 70 - 140 mg/dL 02/01/2021 6:26 AM RESIDENCE HALL DIRECTOR D TL Albumin, S 3.6 3.5 - 5.0 g/dL 02/01/2021 6:26 AM RESIDENCE HALL DIRECTOR D TL Phosphorus (Inorganic), S 4.0 2.5 - 4.5 mg/dL 02/02/20 6:26 AM RESIDENCE HALL DIRECTOR DTL Specimen Anatomical Collection Method Collection Time Receive d Time (Source) Location / / Volume Laterality Blood (Blood, 02/01/2021 5:21 AM 02/02/20 5:52 Venous) RESIDENCE HALL DIRECTOR AM RESIDENCE HALL DIRECTOR Gerald England M.D. LAB BLOOD ADD-ON Performing Organization Address City/State/ZIP Code Phon e Number [facility] - [address] [place], [place] [address] [facility] [place] [address] [facility] [address] (ABNORMAL) Vitamin B12 Assay (02/01/2021 5:21 AM RESIDENCE HALL DIRECTOR) Analysis Performed At Patho logist Time Signature Vitamin B12 >1400 (H) 180 - 914 02/02/2021 DTL Assay, S ng/L 7:10 AM RESIDENCE HALL DIRECTOR Comment: ----ADDITIONAL INFORMATION---- In patients being evaluated [...] (Blood, 02/01/2021 5:21 AM 02/02/20 5:52 Venous) RESIDENCE HALL DIRECTOR AM RESIDENCE HALL DIRECTOR Gerald England M.D. LAB BLOOD ADD-ON Performing Organization Address City/[facility] Phon e Number [facility] - [address] Folate (02/01/2021 5:21 AM RESIDENCE HALL DIRECTOR) athologist Signature Folate, S 17.9 >=4.0 mcg/L 02/02/2021 7:09 DTL AM RESIDENCE HALL DIRECTOR Specimen Anatomical Collection Method Collection Time Receive d Time (Source) Location / / Volume Laterality Blood (Blood, 02/01/2021 5:21 AM 02/02/20 5:52 Venous) RESIDENCE HALL DIRECTOR AM RESIDENCE HALL DIRECTOR Gerald England M.D. LAB BLOOD ADD-ON Performing Organization Address [facility] Phon e Number [facility] - [address] Lipid Panel (02/01/2021 5:21 AM RESIDENCE HALL DIRECTOR) athologist Signature Cholesterol, 157 mg/dL 02/01/2021 DTL Total 6:27 AM RESIDENCE HALL DIRECTOR Comment: ----REFERENCE VALUE---- Desirable: < 200 Borderline high: 200 - 239 High: > or = 240 Triglycerides 107 mg/dL 02/01/2021 6:27 AM RESIDENCE HALL DIRECTOR DTL Comment: ----REFERENCE VALUE---- Normal: <150 Borderline high: 150-199 High: 200-499 Very high: > or =500 Cholesterol, HDL, S 88 >=50 mg/dL 02/01/2021 6:27 AM RESIDENCE HALL DIRECTOR DTL Calculated LDL 48 mg/dL 02/01/2021 6:27 AM RESIDENCE HALL DIRECTOR DT L Comment: ----REFERENCE VALUE---- Desirable: <100 Above Desirable: 100-129 Borderline high: 130-159 High: 160-189 Very high: > or =190 Cholesterol, Non-HDL, Calculated 69 mg/dL 021 6:27 AM RESIDENCE HALL DIRECTOR DTL Comment: ----REFERENCE VALUE---- Desirable: <130 Above Desirable: 130-159 Borderline high: 160-189 High: 190-219 Very high: > or =220 Specimen Anatomical Collection Method Collection Time Receive d Time (Source) Location / / Volume Laterality Blood (Blood, 02/01/2021 5:21 AM 02/02/20 5:52 Venous) RESIDENCE HALL DIRECTOR AM RESIDENCE HALL DIRECTOR Gerald England M.D. LAB BLOOD ADD-ON Performing Organization Address City/[facility]/ZIP Code Phon e Number [facility] - [address] [place], [place] [address] [facility] [place] [address] [facility] 200 [facility] ECG 12 Lead (01/31/2021 11:35 PM RESIDENCE HALL DIRECTOR) P athologist Signature Ventricular Rate 60 BPM MUSE ECG/Min NM Interval 170 ms MUSE QRSD Interval 88 ms MUSE QT Interval 434 ms MUSE QTC Interval 434 ms MUSE P Monroe 31 degrees MUSE R Monroe -16 degrees MUSE T Wave Monroe 3 degrees MUSE Specimen Anatomical Collection Method Collection Time Receive d Time (Source) Location / / Volume Laterality 01/31/2021 11:35 02/01/2021 6:10 PM RESIDENCE HALL DIRECTOR AM RESIDENCE HALL DIRECTOR Impressions MUSE - 02/01/2021 6:10 AM RESIDENCE HALL DIRECTOR Normal sinus rhythm Minimal voltage criteria for [...] England M.D. ECG ORDERABLES Performing Organization Address City/[facility]/ZIP Code Phon e Number MUSE MUSE NA SARS Coronavirus 2, RNA, Rapid POC, V Asymptomatic (01/31/2021 10:32 PM RESIDENCE HALL DIRECTOR) Patholo gist Method Time Signature SARS Undetected Undetected 01/31/2021 DTLR Coronavirus-2 10:52 PM RESIDENCE HALL DIRECTOR , RNA, Rapid POC, V Comment: Negative for SARS-CoV-2. The Cue COVID-19 test is a molecular shahzad t for SARS-CoV-2, the virus that causes COVID- 19. A Negative result means that the [facility] COV ID-19 test did not detect SARS-CoV-2 virus in your sample. [facility] COVID-19 test uses the Bannerman nitoring System. This test has received Emergency Use Authorization (EUA) by the U.S. Food and Drug Administration (FDA) and is used per man ufacturer instructions. Performance characteristic s were verified by [facility] in a manner consistent with CLIA requirements. Fact sheets for this Emerg ency Use Authorization (EUA) can be found at the following links: Providers: [email or web address][email or web address]/documentation/prov iders.pdf Patients: [email or web address] [email or web address].pdf SARS Coronavirus 2, Source Nasopharynx DEFAULT 01/31/2021 10:52 PM RESIDENCE HALL DIRECTOR DTLR Specimen Anatomical Collection Method Collection Time Receive d Time (Source) Location / / Volume Laterality Varies 01/31/2021 10:32 01/31/2021 (Nasopharynx) PM RESIDENCE HALL DIRECTOR 10:32 PM RESIDENCE HALL DIRECTOR Nan Rios M.D. LAB MICROBIOLOGY - GENERAL O RDERABLES Performing Organization Address City/State/ZIP Code Phon e Number PERFORMING LABS, REF [place] [address] INTERFACE Ref Interface 200 [facility] DTLR Performing Labs, [place] [address] Interface 200 [facility] Electrolyte (Chem 4) Panel (01/31/2021 9:44 PM RESIDENCE HALL DIRECTOR) P athologist Signature Potassium, P 4.0 3.6 - 5.2 01/31/2021 STMA mmol/L 10:06 PM RESIDENCE HALL DIRECTOR Sodium, P 137 135 - 145 01/31/2021 STMA mmol/L 10:06 PM RESIDENCE HALL DIRECTOR Chloride, P 104 98 - 107 01/31/2021 STMA mmol/L 10:06 PM RESIDENCE HALL DIRECTOR Bicarbonate, P 24 22 - 29 01/31/2021 STMA mmol/L 10:06 PM RESIDENCE HALL DIRECTOR Anion Gap, P 9 7 - 15 01/31/2021 STMA 10:06 PM RESIDENCE HALL DIRECTOR Specimen Anatomical Collection Method Collection Time Receive d Time (Source) Location / / Volume Laterality Blood (Blood, 01/31/2021 9:44 PM 02/01/20 21 9:56 Venous) RESIDENCE HALL DIRECTOR PM RESIDENCE HALL DIRECTOR Gerald England M.D. LAB BLOOD ADD-ON Performing Organization Address City/State/ZIP Code Phon e Number [facility] - [address] [place], [place] [address] [facility] [place] [address] [facility] [address] [facility] (ABNORMAL) Prothrombin Time (PT) (01/31/2021 9:44 PM RESIDENCE HALL DIRECTOR) Patholo gist Method Time Signature Prothrombin 15.5 (H) 9.4 - 12.5 01/31/2021 DTL Time, P sec 10:27 PM RESIDENCE HALL DIRECTOR INR 1.4 0.9 - 1.1 01/31/2021 DTL 10:27 PM RESIDENCE HALL DIRECTOR Comment: ----ADDITIONAL INFORMATION---- Standard intensity warfarin therapeutic range: 2.0 to 3.0 ?? High intensity warfarin therapeutic rang e: 2.5 to 3.5 Specimen Anatomical Collection Method Collection Time Receive d Time (Source) Location / / Volume Laterality Blood (Blood, 01/31/2021 9:44 PM 02/01/20 21 Venous) RESIDENCE HALL DIRECTOR 10:06 PM RESIDENCE HALL DIRECTOR Gerald England M.D. LAB BLOOD ADD-ON Performing Organization Address City/State/ZIP Code Phon e Number [facility] - [address] [place], [place] [id number] [place] [address] [address] [facility] APTT (Activated Partial Thromboplastin Time) (01/31/2021 9:44 PM RESIDENCE HALL DIRECTOR) P athologist Signature Activated 35 25 - 37 sec 01/31/2021 DTL Partial 10:27 PM RESIDENCE HALL DIRECTOR Thrombopl Time, P Specimen Anatomical Collection Method Collection Time Receive d Time (Source) Location / / Volume Laterality Blood (Blood, 01/31/2021 9:44 PM 02/01/20 21 Venous) RESIDENCE HALL DIRECTOR 10:06 PM RESIDENCE HALL DIRECTOR Gerald England M.D. LAB BLOOD ADD-ON Performing Organization Address City/State/ZIP Code Phon e Number [facility] - [address] [place] [id number] [facility] [address] [place] [address] [address] [facility] (ABNORMAL) Hemoglobin A1c (01/31/2021 9:44 PM RESIDENCE HALL DIRECTOR) P athologist Signature Hemoglobin A1c, 6.1 (H) 4.0 - 5.6 01/31/2021 DTL B % 10:18 PM RESIDENCE HALL DIRECTOR Comment: Hemoglobin A1c values of 5.7-6.4 percent indicate an increased risk for developing diabetes henrry skinner. In diabetic patients, HbA1c goals should be discussed with healthcare provider. Specimen Anatomical Collection Method Collection Time Receive d Time (Source) Location / / Volume Laterality Blood (Blood, 01/31/2021 9:44 PM 02/01/20 21 Venous) RESIDENCE HALL DIRECTOR 10:06 PM RESIDENCE HALL DIRECTOR Gerald England M.D. LAB BLOOD ADD-ON Performing Organization Address City/State/ZIP Code Phon e Number [facility] - 200 [place], [place] [address] [facility] [place] [address] [facility] [address] [facility] (ABNORMAL) CBC with Differential, Blood (01/31/2021 9:44 PM RESIDENCE HALL DIRECTOR) Patholo gist Method Time Signature Hemoglobin 11.1 (L) 11.6 - 01/31/2021 DTL 15.0 g/dL 10:12 PM RESIDENCE HALL DIRECTOR Hematocrit 34.9 (L) 35.5 - 01/31/2021 DTL 44.9 % 10:12 PM RESIDENCE HALL DIRECTOR Erythrocytes 3.84 (L) 3.92 - 01/31/2021 DTL 5.13 10:12 PM RESIDENCE HALL DIRECTOR x10(12)/L MCV 90.9 78.2 - 01/31/2021 DTL 97.9 fL 10:12 PM RESIDENCE HALL DIRECTOR RBC Distrib Width 14.4 12.2 - 01/31/2021 DTL 16.1 % 10:12 PM RESIDENCE HALL DIRECTOR Platelet Count 326 157 - 371 01/31/2021 DTL x10(9)/L 10:12 PM RESIDENCE HALL DIRECTOR Leukocytes 6.8 3.4 - 9.6 01/31/2021 DTL x10(9)/L 10:12 PM RESIDENCE HALL DIRECTOR Neutrophils 4.91 1.56 - 01/31/2021 DTL 6.45 10:12 PM RESIDENCE HALL DIRECTOR x10(9)/L Lymphocytes 1.52 0.95 - 01/31/2021 DTL 3.07 10:12 PM RESIDENCE HALL DIRECTOR x10(9)/L Monocytes 0.34 0.26 - 01/31/2021 DTL 0.81 10:12 PM RESIDENCE HALL DIRECTOR x10(9)/L Eosinophils 0.03 0.03 - 01/31/2021 DTL 0.48 10:12 PM RESIDENCE HALL DIRECTOR x10(9)/L Basophils 0.03 0.01 - 01/31/2021 DTL 0.08 10:12 PM RESIDENCE HALL DIRECTOR x10(9)/L Specimen Anatomical Collection Method Collection Time Receive d Time (Source) Location / / Volume Laterality Blood (Blood, 01/31/2021 9:44 PM 02/01/20 21 Venous) RESIDENCE HALL DIRECTOR 10:06 PM RESIDENCE HALL DIRECTOR Gerald England M.D. LAB BLOOD ADD-ON Performing Organization Address City/[facility] Code Phon e Number [facility] - [address] S-TSH (Thyroid-Stimulating Hormone - Sensitive) (01/31/2021 9:44 PM RESIDENCE HALL DIRECTOR) P athologist Signature TSH, Sensitive 0.3 0.3 - 4.2 01/31/2021 DTL mIU/L 10:59 PM RESIDENCE HALL DIRECTOR Specimen Anatomical Collection Method Collection Time Receive d Time (Source) Location / / Volume Laterality Blood (Blood, 01/31/2021 9:44 PM 02/01/20 21 Venous) RESIDENCE HALL DIRECTOR 10:06 PM RESIDENCE HALL DIRECTOR Gerald England M.D. LAB BLOOD ADD-ON Performing Organization Address City/State/[facility] Code Phon e Number [facility] - [address] [place], [place] [address] [place] [address] AST (Aspartate Aminotransferase) (01/31/2021 9:44 PM RESIDENCE HALL DIRECTOR) Patholo gist Method Time Signature Aspartate 23 8 - 43 01/31/2021 DTL Aminotransferase U/L 10:59 PM RESIDENCE HALL DIRECTOR (AST), S Specimen Anatomical Collection Method Collection Time Receive d Time (Source) Location / / Volume Laterality Blood (Blood, 01/31/2021 9:44 PM 02/01/20 21 Venous) RESIDENCE HALL DIRECTOR 10:06 PM RESIDENCE HALL DIRECTOR Gerald England M.D. LAB BLOOD ADD-ON Performing Organization Address City/[facility] Phon e Number [facility] - [id number] [place] [address] ALT (Alanine Aminotransferase) (01/31/2021 9:44 PM RESIDENCE HALL DIRECTOR) [facility] gist Method Time Signature Alanine 15 7 - 45 01/31/2021 DTL Aminotransferase U/L 10:59 PM RESIDENCE HALL DIRECTOR (ALT), S Specimen Anatomical Collection Method Collection Time Receive d Time (Source) Location / / Volume Laterality Blood (Blood, 01/31/2021 9:44 PM 02/01/20 21 Venous) RESIDENCE HALL DIRECTOR 10:06 PM RESIDENCE HALL DIRECTOR Gerald England M.D. LAB BLOOD ADD-ON Performing Organization Address [facility] Phon e Number [facility] - [phone] [place] [address] documented in this encounter Visit Diagnoses Diagnosis Stroke (HCC) Chronic Pain Syndrome Stroke Cerebrovascular Accident Personal History documented in this encounter Admitting Diagnoses Diagnosis Stroke (HCC) documented in this encounter Administered Medications Inactive Administered Medications - up to 3 most recent administrations Medication Order MAR Action Action Date Dose Rate Site acetaminophen tablet 1,000 mg Given 02/03/2021 6:56 AM RESIDENCE HALL DIRECTOR 1,000 mg (TYLENOL) 1,000 mg, oral, Every 6 hours PRN, mild pain or score 1-3 of 10, moderate pain or score 4-6 of 10, headaches, Starting on 02/01/21 at 0210 Given 02/02/2021 2:36 PM RESIDENCE HALL DIRECTOR 1,000 mg Given 02/02/2021 8:53 AM RESIDENCE HALL DIRECTOR 1,000 mg albuterol 90 mcg/actuation inhaler 2 puf f Given 02/03/2021 4:29 AM RESIDENCE HALL DIRECTOR 2 puffs 2 puff, inhalation, Every 6 hours PRN, wheezing, shortness of breath, Starting on 02/01/21 at 1115 apixaban tablet 5 mg (ELIQUIS) Given 02/03/2021 9:30 AM RESIDENCE HALL DIRECTOR 5 mg 5 mg, oral, 2 times daily, First dose on 02/02/21 at 2100 Given 02/02/2021 8:09 PM RESIDENCE HALL DIRECTOR 5 mg aspirin tablet 325 mg Given 02/02/2021 8:11 AM RESIDENCE HALL DIRECTOR 325 mg 325 mg, oral, Daily, First dose on 02/01/21 at 1030 Given 02/01/2021 10:54 AM RESIDENCE HALL DIRECTOR 325 mg atorvastatin tablet 40 mg (LIPITOR) Given 02/02/2021 8:09 PM RESIDENCE HALL DIRECTOR 40 mg 40 mg, oral, Daily at [...] 25 m cg Given 02/03/2021 9:29 AM RESIDENCE HALL DIRECTOR 25 mcg 25 mcg, oral, Daily, First dose on 02/01/21 at 0900, cholecalciferol (vitamin D3) orderable was interchanged for cholecalciferol (vitamin D3) tablet/capsule Given 02/02/2021 8:10 AM RESIDENCE HALL DIRECTOR 25 mcg Given 02/01/2021 9:11 AM RESIDENCE HALL DIRECTOR 25 mcg cyanocobalamin tablet 2,000 mcg (VITAMIN Given 02/03/2021 9: 28 AM RESIDENCE HALL DIRECTOR 2,000 mcg B12) 2,000 mcg, oral, Daily, First dose on 02/01/21 at 0900 Given 02/02/2021 8:08 AM RESIDENCE HALL DIRECTOR 2,000 mcg Given 02/01/2021 9:11 AM RESIDENCE HALL DIRECTOR 2,000 mcg diazePAM tablet 10 mg (VALIUM) Given 02/03/2021 10:51 AM RESIDENCE HALL DIRECTOR 10 mg 10 mg, oral, 2 times daily PRN, anxiety, Starting on 02/01/21 at 1016 Given 02/02/2021 10:24 PM RESIDENCE HALL DIRECTOR 10 mg Given 02/02/2021 8:53 AM RESIDENCE HALL DIRECTOR 10 mg docusate sodium 283 mg/5 mL enema 1 enem a (ENEMEEZ) 1 enema, rectal, 2 times daily PRN, cons tipation, Starting on 01/31/21 at 2125, If no bowel movement within 24 hours of starting bisac odyl FLUoxetine capsule 80 mg (PROzac) Given 02/03/2021 9:28 AM RESIDENCE HALL DIRECTOR 80 mg 80 mg, oral, Daily, First dose on Tue02/01/21 at 0900, FLUoxetine orderable was interchanged for FLUoxetine tablet/capsule Given 02/02/2021 8:10 AM RESIDENCE HALL DIRECTOR 80 mg Given 02/01/2021 9:10 AM RESIDENCE HALL DIRECTOR 80 mg folic acid tablet 800 mcg Given 02/03/2021 9:29 AM RESIDENCE HALL DIRECTOR 800 mcg 800 mcg, oral, Every morning, First dose on Tue02/01/21 at 0900 Given 02/02/2021 8:14 AM RESIDENCE HALL DIRECTOR 800 mcg Given 02/01/2021 10:00 AM RESIDENCE HALL DIRECTOR 800 mcg furosemide tablet 40 mg (LASIX) Given 02/03/2021 9:29 AM RESIDENCE HALL DIRECTOR 40 mg 40 mg, oral, 2 times daily, First dose on Tue02/02/21 at 0900 Given 02/02/2021 6:25 PM RESIDENCE HALL DIRECTOR 40 mg Given 02/02/2021 8:10 AM RESIDENCE HALL DIRECTOR 40 mg gadobutrol injection 0.01-30 mL (GADAVIS T) Given 02/03/2021 12:35 PM RESIDENCE HALL DIRECTOR 8 mL 0.01-30 mL, intravenous, Once in imaging, contrast, Starting on Tue02/03/21 at 1235, For 1 dose, Imaging Protocol Orders, Dose per Radiant Medication Guidelines heparin (porcine) Given 02/02/2021 6:29 AM RESIDENCE HALL DIRECTOR 5,000 Units Left Lower Abdomen injection 5,000 Units 5,000 Units, subcutaneous, Every 8 hours scheduled, First dose on Tue02/01/21 at 0600 Given 02/01/2021 9:17 PM RESIDENCE HALL DIRECTOR 5,000 Units Right Lower Abdomen Given 02/01/2021 1:56 PM RESIDENCE HALL DIRECTOR 5,000 Units Right Lower Abdomen lamoTRIgine tablet 200 mg (LaMICtal) Given 02/03/2021 9:29 AM RESIDENCE HALL DIRECTOR 200 mg 200 mg, oral, 2 times daily, First dose (after last modification) on 01/31/21 at 2245 Given 02/02/2021 8:09 PM RESIDENCE HALL DIRECTOR 200 mg Given 02/02/2021 8:11 AM RESIDENCE HALL DIRECTOR 200 mg lidocaine 5 % 1 patch Medication Applied 01/31/2021 10:44 PM 1 patch Upper Back (LIDODERM) RESIDENCE HALL DIRECTOR 1 patch, transdermal, Administer over 12 Hours, Daily, First dose on 01/31/21 at 2200, Remove after 12 hours. lidocaine 5 % ointment 1 application Given 02/02/2021 2:33 A M RESIDENCE HALL DIRECTOR 1 application (XYLOCAINE) 1 application, topical, 3 times daily PRN, mild pain or score 1-3 of 10, Starting on 02/01/21 at 1114, MAX of 20 g of ointment/day Given 02/01/2021 5:18 PM RESIDENCE HALL DIRECTOR 1 application loratadine tablet 10 mg (CLARITIN) Given 02/03/2021 9:30 AM RESIDENCE HALL DIRECTOR 10 mg 10 mg, oral, Daily, First dose on 02/01/21 at 0900, loratadine 10 mg oral daily was interchanged for cetirizine 5 mg oral twice daily Given 02/02/2021 8:11 AM RESIDENCE HALL DIRECTOR 10 mg Given 02/01/2021 9:12 AM RESIDENCE HALL DIRECTOR 10 mg magnesium oxide tablet 400 mg (MAG-OX) Given 02/02/2021 8:09 PM RESIDENCE HALL DIRECTOR 400 mg 400 mg, oral, Daily at bedtime, First dose on 02/01/21 at 2100, magnesium oxide 400 mg daily was interchanged for magnesium gluconate 500 mg daily Given 02/01/2021 9:17 PM RESIDENCE HALL DIRECTOR 400 mg meclizine tablet 25 mg (ANTIVERT) Given 02/02/2021 3:01 AM RESIDENCE HALL DIRECTOR 25 mg 25 mg, oral, 3 times daily PRN, dizziness, Starting on 02/01/21 at 0211 Given 02/01/2021 9:19 AM RESIDENCE HALL DIRECTOR 25 mg meclizine tablet 25 mg (ANTIVERT) Given 02/02/2021 8:09 PM RESIDENCE HALL DIRECTOR 25 mg 25 mg, oral, 4 times [...] 1 patch Left Shoulder patch (NICODERM CQ) RESIDENCE HALL DIRECTOR 1 patch, transdermal, Administer over 24 Hours, Daily, First dose on 02/01/21 at 0900 Medication Applied 02/02/2021 8:14 AM RESIDENCE HALL DIRECTOR 1 patch Right Arm Medication Applied 02/01/2021 9:13 AM RESIDENCE HALL DIRECTOR 1 patch Left Shoulder nicotine 21 mg/24 hr 1 Medication Applied 02/03/2021 2:55 PM 1 patch Left Shoulder patch (NICODERM CQ) RESIDENCE HALL DIRECTOR 1 patch, transdermal, Administer over 24 Hours, Daily, First dose on Tue02/03/21 at 1330 ondansetron ODT disintegrating tablet 4 mg Given 02/02/2021 10:2 4 PM RESIDENCE HALL DIRECTOR 4 mg (ZOFRAN-ODT) 4 mg, oral, Every 8 hours PRN, nausea, Starting on 01/31/21 at 2228, When splitting ODT at bedside, handle with gloves and a pill splitter to prevent moisture contact. Given 02/02/2021 2:36 PM RESIDENCE HALL DIRECTOR 4 mg Given 02/01/2021 1:12 AM RESIDENCE HALL DIRECTOR 4 mg oxyCODONE IR tablet 10 mg (ROXICODONE) Given 02/03/2021 5:02 PM RESIDENCE HALL DIRECTOR 10 mg 10 mg, oral, Every 6 hours PRN, moderate pain or score 4-6 of 10, Starting on 01/31/21 at 2229 Given 02/03/2021 2:42 AM RESIDENCE HALL DIRECTOR 10 mg Given 02/02/2021 8:08 PM RESIDENCE HALL DIRECTOR [address] tablet 40 mg (PROTONIX) Given 02/03/2021 4:58 PM RESIDENCE HALL DIRECTOR 40 mg 40 mg, oral, 2 times daily before breakfast and dinner, First dose on 02/01/21 at 0700, pantoprazole 40 mg oral twice daily was interchanged for esomeprazole 20 or 40 mg oral twice daily Swallow whole. Do NOT crush, chew, or split tablet. Given 02/03/2021 6:56 AM RESIDENCE HALL DIRECTOR 40 mg Given 02/02/2021 6:25 PM RESIDENCE HALL DIRECTOR 40 mg pregabalin capsule 150 mg (LYRICA) Given 02/01/2021 9:12 AM RESIDENCE HALL DIRECTOR 150 mg 150 mg, oral, Every morning, First dose on 02/01/21 at 0900 pregabalin capsule 300 mg (LYRICA) Given 01/31/2021 11:16 PM RESIDENCE HALL DIRECTOR 300 mg 300 mg, oral, Every evening, First dose on 01/31/21 at 2300 pregabalin capsule 300 mg (LYRICA) Given 02/03/2021 9:28 AM RESIDENCE HALL DIRECTOR 300 mg 300 mg, oral, Every morning, First dose (after last modification) on 02/02/21 at 0900 Given 02/02/2021 8:10 AM RESIDENCE HALL DIRECTOR 300 mg pregabalin capsule 600 mg (LYRICA) Given 02/02/2021 8:09 PM RESIDENCE HALL DIRECTOR 600 mg 600 mg, oral, Daily at bedtime, First dose (after last modification) on 02/01/21 at 2100 Given 02/01/2021 9:17 PM RESIDENCE HALL DIRECTOR 600 mg promethazine injection 6.25 mg (PHENERGA N) Given 02/01/2021 12:47 PM RESIDENCE HALL DIRECTOR 6.25 mg 6.25 mg, intravenous, Once, On 02/01/21 at 1030, For 1 dose QUEtiapine tablet 50 mg (SEROquel) Given 02/03/2021 12:39 AM RESIDENCE HALL DIRECTOR 50 mg 50 mg, oral, Bedtime PRN, agitation/sleep, Starting on 02/01/21 at 1310 rOPINIRole tablet 2 mg (REQUIP) Given 02/03/2021 2:42 AM RESIDENCE HALL DIRECTOR 2 mg 2 mg, oral, Daily PRN, restless legs, Starting on 01/31/21 at 2233 sennosides-docusate sodium 8.6-50 mg per Given 02/03/2021 9: 27 AM RESIDENCE HALL DIRECTOR 2 tablets tablet 2 tablet (SENOKOT-S) 2 [...] 300 mg (ZONEGRAN) Given 02/03/2021 9:28 AM RESIDENCE HALL DIRECTOR 300 mg 300 mg, oral, 2 times daily, First dose (after last modification) on 01/31/21 at 2245, Swallow whole. Do NOT crush, chew or open capsule. Given 02/02/2021 8:09 PM RESIDENCE HALL DIRECTOR 300 mg Given 02/02/2021 8:53 AM RESIDENCE HALL DIRECTOR 300 mg documented in this encounter Active and Recently Administered Medications Times are shown in RESIDENCE HALL DIRECTOR. Scheduled Medication Order 02/01/2021 02/02/2021 02/03/2021 apixaban [...] (CANCELED) 0912 (Gi saeid - Provider: Valarie Gryason RBetsy) 150 mg, oral, Every morning, First [...] RBetsy) 1 application, topical, 3 times daily NM N, mild pain or score 1-3 of [...] tablet 4 mg (ZANAFLEX) 0210 (Held by [facility] er - Provider: Marbella Cutler M.D. - Comment: Sedation) 1925 (Unheld by [facility] ider - Provider: Discharge Provider, [...] COVID19 Pending 01/31/2021 01/31/2021 01/31/2021 10:53 PM RESIDENCE HALL DIRECTOR Assessment Noted Time PHQ-9 Depression Total Score: 23 02/02/2021 11:[address] documented as of this encounter
--- OUTSIDE RECORDS SUMMARY | 2022-08-17 07:01 | XMS_ITS | Encounter Summary ---
:1965 Author Organization [facility] Address [address] [place] [address] Care Team Providers Name Role Phone Unavailable Primary Care Provider Unavailable Encounter Details Date Type Department Care Team Description 01/20/2021 Clinical Communication Department of Elvira Villalta, Neurology in [place], [place] [address] [place] [address] [address] [place] [phone] Social History Tobacco Use Types Packs/Day Years [...] Appointment Radiology Alfredo Herrera O.P.A.-C. [address] [place] [phone] 09/06/2022 Office Visit Orthopedic Surgery Cyrus Polk M.D. [address] [place] [phone] documented as of this encounter Visit Diagnoses Not on filedocumented in this encounter Additional Health Concerns Assessment Noted Time PHQ-9 Depression Total Score: 5 04/05/2019 8:00 AM CDT documented as of this encounter
--- OUTSIDE RECORDS SUMMARY | 2022-08-17 07:01 | XMS_ITS | Encounter Summary ---
:1965 Author Organization [facility] Address [address] [place] [address] Care Team Providers Name Role Phone Unavailable Primary Care Provider Unavailable Reason for Visit Reason Comments Initiate warfarin anticoagulation. Encounter Details Date Type Department Care Team Description 01/01/2021 Clinical Communication Department of Renny Mahoney warfarin Neurology in [place] anticoagulation. [address] [place] [phone] [place], [place] [phone] (Work) [phone] Social History Tobacco Use Types Packs/Day Years [...] you attend rastafarian or Patient refused 2021 caodaism services? Do [...] PM CST RADHA Thompson, calls in from [facility] with INR results = 3.9. Please call her back at [phone] CONTROL OFFICER Telephone Encounter - Renny Mahoney R.N. - 01/05/2021 1:56 PM CST Mackenzie talked to her, she needs to go to the lab today. CONTROL OFFICER Telephone Encounter - Allyssa Amaya - 01/05/2021 11:14 AM CST Patient calls in regarding this. She is wanting this set up now so a nurse can come into her home and do this. She I believed mentions that a nurse comes into her home now. She would like a call to discuss. CONTROL OFFICER Telephone Encounter - Robert Diehl M.D. - 01/01/2021 4:46 PM CST Absolutely and thank you very much for coordinating this CONTROL OFFICER Addendum Note - Renny Mahoney R.N. - 01/01/2021 1:03 PM FIRE CONTROL OFFICER Addended by: RENNY MAHONEY on: 01/01/2021 01:03 PM Modules accepted: Orders CONTROL OFFICER Telephone Encounter - Renny Mahoney R.N. - 01/01/2021 12:45 PM CST I spoke to the patient by telephone today to discuss reinitiating warfarin. The patient referred by Dr. Argenis Diehl ([id number]). The patient's target INR is 2.0-3.0. 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 The anticipated duration of warfarin is synchro assembler. As per Dr. Diehl, the patient is to be instructed to discontinue the 325 mg aspirin once the target INR is reached. The patient shares that she is well aware of the risks/benefits and process of taking warfarin with regular INR monitoring. She declined the need for additional education by phone regarding anticoagulation. She would like to have her INRs drawn at [facility] with results faxed to us [facility]. I spoke with her local primary care physician nurse about this as well. Once Dr. Diehl obtains imaging in about 3 months, we may consider transitioning her anticoagulation care to her local [facility]. The patient will take 5 mg warfarin nightly starting tonight 01/01/21, then have an INR drawn 01/05/21 at [facility] with results faxed to us. A prescription for warfarin 5 mg #30, take as directed, may refill X 1 was eprescribed to [facility]. The patient reported an adequate understanding of her plan of care and expressed agreement with thisplan. RECOMMENDED LEVEL OF CARE. The patient/caller is willing and able to follow the nurse's recommendation. RESPONSE TO ADVICE GIVEN. Patient/caller able to teach back. REFERENCES UTILIZED. Nursing clinical judgment utilized. Other interventions or information: Provider advice. TYPE OF PHONE CALL. Medical information, care coordination. . CONTROL OFFICER Addendum Note - Renny Mahoney R.N. - 01/01/2021 9:43 AM FIRE CONTROL OFFICER Addended by: RENNY MAHONEY on: 01/01/2021 09:43 AM Modules accepted: Orders CONTROL OFFICER Telephone Encounter - Renny Mahoney R.N. - 01/01/2021 9:32 AM CST I have spoken with the pharmacist at [facility] in [place]. He notes that in 2018 when thepatient previously was treated with warfarin, she was taking 5 mg nightly for a period of time. Eventually some nights she was taking 7.5 mg nightly. The pharmacist reviewed potential medication interactions with the patient's current medication list. No serious interactions anticipated. As per Dr. Yeboah ([id number]), we will initiate 5 mg nightly. She will continue aspirin until therapeutic INR is reached. CONTROL OFFICER Telephone Encounter - Renny Mahoney R.N. - 01/01/2021 8:47 AM CST The patient has been experiencing episodes of vertigo, gait instability, with a fall, she was seen in the ED of [facility] on 12/22/20. Head CT was performed and sent to [facility] for Dr. Diehl's review. He noted possible [...] the patient's primary care team at the [facility]. I have discussed this with the patient who reports an ad equate understanding and agreement with this plan. RECOMMENDED LEVEL OF CARE. The patient/caller is willing and able to follow the nurse's recommendation. RESPONSE TO ADVICE GIVEN. Patient/caller able to teach back. REFERENCES UTILIZED. Nursing clinical judgment utilized. Other interventions or information: Provider advice. TYPE OF PHONE CALL. Care coordination. CONTROL OFFICER Telephone Encounter - Renny Mahoney R.N. - 01/01/2021 8:46 AM CST ----- Message from Robert Diehl M.D. sent at 12/31/2020 5:17 PM FIRE CONTROL OFFICER ----- I called and discussed the results [...] by: Robert Diehl M.D. 12/31/20 5:16 PM FIRE CONTROL OFFICER Stroke Cerebrovascular Accident Personal History Plan: CT Head without IV Contrast, CT Head without IV Contrast Ataxia Plan: CT Head Neck Angiogram with IV Contrast, CT Head Neck Angiogram with IV Contrast CONTROL OFFICER documented in this encounter Plan of Treatment Upcoming Encounters Date Type Specialty Care Team Description 09/01/2022 Clinical Communication Admitting/Central Scheduling 09/06/2022 Appointment Radiology Alfredo Herrera O.PBrittonABritton-CBritton [address] [place] [address] 09/06/2022 Office Visit Orthopedic Surgery Cyrus Polk M.D. [address] [place] [address] Scheduled Orders Name Type Priority Associated Diagnoses Order S chedule Prothrombin Time (PT) Lab Routine Window Sash Installer Anticoagu lant 50 Occurrences starting Treatment 01/01/2021 unti l 01/01/2024 documented as of this encounter Visit Diagnoses Diagnosis Shelter (Current) Anticoagulant Treatm ent - Primary documented in this encounter Additional Health Concerns Assessment Noted Time PHQ-9 Depression Total Score: 5 04/05/2019 8:00 AM CDT documented as of this encounter
--- OUTSIDE RECORDS SUMMARY | 2022-08-17 07:02 | XMS_ITS | Encounter Summary ---
:1965 Author Organization [facility] Address [address] [place] [address] Care Team Providers Name Role Phone Unavailable Primary Care Provider Unavailable Encounter Details Date Type Department Care Team Description 08/05/2020 Clinical Communication Department of Honorio, Otorhinolaryngology in [place], [place] [address] [place], [place] [phone] [facility] [phone] [place] [phone] Social History Tobacco Use Types Packs/Day Years [...] you attend hindu or Patient refused 2021 pentecostalism services? Do [...] called patient to schedule COVID testing at [place] prior to appointment. Didn't answer so jessica [...] Appointment Radiology Alfredo Herrera O.P.A.-C. [address] [place] [address] 09/06/2022 Office Visit Orthopedic Surgery Cyrus Polk M.D. [address] [place] [phone] documented as of this encounter Visit Diagnoses Not on filedocumented in this encounter Additional Health Concerns Assessment Noted Time PHQ-9 Depression Total Score: 5 04/05/2019 8:00 AM CDT documented as of this encounter
--- OUTSIDE RECORDS SUMMARY | 2022-08-17 07:02 | XMS_ITS | Encounter Summary ---
:1965 Author Organization [facility] Address [address] [place] [address] Care Team Providers Name Role Phone Unavailable [...] you attend congregation or Patient refused 2021 gnosticist services? Do [...] Appointment Radiology Alfredo Herrera O.P.A.-C. [address] [place] [phone] 09/06/2022 Office Visit Orthopedic Surgery Cyrus Polk M.D. [address] [place] [phone] documented as of this encounter Procedures Procedure Name Priority Date/Time Associated Comments Diagnosis OTORHINOLARYNGOLOGY IMAGE Routine 11/29/2019 3:10 Results for this EXAM PM PLASTER DIE MAKER procedure are i n the results section. documented in this encounter Results NOSE-Otorhinolaryngology Image Exam (11/29/2019 3:10 PM PLASTER DIE MAKER) Specimen (Source) Anatomical Collection Method Collection Time Re ceived Time Location / / Volume Laterality 11/29/2019 3:08 PM PLASTER DIE MAKER Narrative IIMS - 11/29/2019 3:58 PM PLASTER DIE MAKER This order has been created and [...]
--- OUTSIDE RECORDS SUMMARY | 2022-08-17 07:02 | XMS_ITS | Encounter Summary ---
:1965 Author Organization [facility] Address [address] [place] [address] Care Team Providers Name Role Phone Unavailable Primary Care Provider Unavailable Encounter Details Date Type Department Care Team Description 12/07/2019 Hospital Encounter [facility] MAIN OR Darlin Olmdeo, [address] [facility] [place] [place] [address] [address] [place] [address] [place] [address] Social History Tobacco Use Types [...] you attend muslim or Patient refused 2021 buddhist services? Do [...] Comments Blood Pressure 114/72 12/07/2019 3:30 PM EVENT OPERATIONS MANAGER Pulse 75 12/07/2019 4:25 PM EVENT OPERATIONS MANAGER Temperature 36.5 ??C (97.7 ??F) 12/07/2019 2:32 PM EVENT OPERATIONS MANAGER Respiratory Rate 15 12/07/2019 4:25 PM EVENT OPERATIONS MANAGER Oxygen Saturation 94% 12/07/2019 4:25 PM EVENT OPERATIONS MANAGER Inhaled Oxygen Concentration - - Weight - [...] saline sinus rinse kit (suchas NeIron or [place]). - Follow the directions on the bottle [...] our clinic or with another department at [facility], an appointment willbe made for you. If you have not received specific details (date, time, location) within 2 weeks of discharge, please contact our office at [phone] to inquire. If you are to follow up somewhere other than [facility], please schedule this appointment (in the timeframe recommended by your surgeon)at your earliest convenience. CONTACT INFORMATION: If you need to reach the Department of ENT at the [facility] regarding any questions during normal business hours, please call . If you are calling after normal business hours and have a concern that needs to be addressed urgently, please call the [facility] Lockstitch Shoulder Joiner at and ask to speak to the ENT resident environmental engineering intern. T OPERATIONS MANAGER AttachmentsThe following attachments cannot be sent through Care Everywhere.Your Scopolamine Patch (Egyptian)documented in this encounter Medications at Time of [...] Extradural computer navigation was registered according to car runner's guidelines and confirmed to be accurate within [...] 5 mL Implants None Darlin Olmedo M.D. T OPERATIONS MANAGER Brief Op Note - Jey Santana M.D. [...] Loss None Implants None Jey Santana M.D. T OPERATIONS MANAGER documented in this encounter Plan of Treatment Upcoming Encounters Date Type Specialty Care Team Description 09/01/2022 Clinical Communication Admitting/Central Scheduling 09/06/2022 Appointment Radiology Alfredo Herrera O.P.A.-C. [address] [place] [address] 09/06/2022 Office Visit Orthopedic Surgery Cyrus Polk M.D. [address] [place] [phone] documented as of this encounter Procedures Procedure Name Priority Date/Time Associated Diagnosis Comme nts ADULT OXYGEN THERAPY Routine 12/07/2019 2:30 PM EVENT OPERATIONS MANAGER EXTRADURAL COMPUTER 12/07/2019 12:13 PM Rhinosin usitis Chronic NAVIGATION EVENT OPERATIONS MANAGER Mucocele Nasal Sinus Case Notes FINANCIAL ENGINEER 10:37 SINUSOTOMY ENDOSCOPY 12/07/2019 12:13 PM EVENT OPERATIONS MANAGER Rhi nosinusitis Chronic FRONTAL Mucocele Nasal Sinus Case Notes FINANCIAL ENGINEER 10:37 documented in this encounter Visit Diagnoses Not on filedocumented in this encounter Administered Medications Inactive Administered Medications - up to 3 most recent administrations Medication Order MAR Action Action Date Dose Rate Site acetaminophen injection 1,000 New Bag 12/07/2019 2:38 PM 1,000 mg 400 mL/hr mg (OFIRMEV) EVENT OPERATIONS MANAGER 1,000 mg, intravenous, at 400 mL/hr, Administer [...] 1,000 mg (TYLENOL) Given 12/07/2019 12:06 PM EVENT OPERATIONS MANAGER 1,000 mg 1,000 mg, oral, Once, On Tue12/07/19 at 1200, For 1 dose, Pre-Op aprepitant capsule 40 mg (EMEND) Given 12/07/2019 12:06 PM EVENT OPERATIONS MANAGER 40 mg 40 mg, oral, Once as needed, prevent ponv, Starting on Tue12/07/19 at 1145, For 1 dose, Pre-Op caffeine tablet 200 mg Given 12/07/2019 12:06 PM EVENT OPERATIONS MANAGER 200 mg 200 mg, oral, Once as needed, pre-op to prevent caffeine withdrawal headache or to enhance emergence from anesthesia/sedation, Starting on Tue12/07/19 at 1145, For 1 dose, Pre-Op, With sips droperidol injection 0.625 mg (INAPSINE) Given 12/07/2019 2:37 PM EVENT OPERATIONS MANAGER 0.625 mg 0.625 mg, intravenous, Every 6 [...] 25 mcg (SUBLIMAZE) Given 12/07/2019 2:32 PM EVENT OPERATIONS MANAGER 25 mcg 25 mcg, intravenous, Every 2 min PRN, For pain 4 or greater (maximum 100 mcg). If max dose of Fentanyl is reached and if pain is greater than 4, discontinue Fentanyl: give Hydromorphone, Starting on Tue12/07/19 at 1145, Pre-Op ketamine injection 10 mg (KETALAR) Given 12/07/2019 2:37 PM EVENT OPERATIONS MANAGER 10 mg 10 mg, intravenous, Once as needed, Pain sedation mismatch AND RASS score less than -1, Starting on Tue12/07/19 at 1430, For 1 dose, PACU (only) lactated ringers New Bag 12/07/2019 3:48 PM EVENT OPERATIONS MANAGER 20 mL/hr 20 mL/hr 20 mL/hr, intravenous, Continuous, Starting on Tue12/07/19 at 1400, PACU & Post-Op Continued from OR 12/07/2019 2:25 PM EVENT OPERATIONS MANAGER 20 mL/hr 20 mL/hr metoprolol tablet 12.5 [...] 2 mg (VERSED) Given 12/07/2019 12:28 PM EVENT OPERATIONS MANAGER 2 mg 2 mg, intravenous, Once as needed, anxiety, sedation, Starting on Tue12/07/19 at 1145, For 1 dose, Pre-Op ondansetron ODT disintegrating tablet 4 mg Given 12/07/2019 12:0 7 PM EVENT OPERATIONS MANAGER 4 mg (ZOFRAN-ODT) 4 mg, sublingual, Once, On Tue12/07/19 at 1200, For 1 dose, Pre-Op, When splitting ODT at bedside, handle with gloves and a pill splitter to prevent moisture contact. scopolamine base 1 mg Medication Applied 12/07/2019 12:11 PM 1 patch Behind Right over 3 days 1 patch EVENT OPERATIONS MANAGER Ear (TRANSDERM SCOP) 1 patch, transdermal, Administer [...] Recently Administered Medications Times are shown in EVENT OPERATIONS MANAGER. Scheduled Medication Order 12/05/2019 12/06/2019 12/07/2019 acetaminophen [...] (COMPLETED) 1251 (Given - Provider: Gini Garcia, PRODUCTION MACHINE OPERATOR, TECHNICAL AID) 1,250 mg (rounded from 1,146 mg = [...] ringers 1425 (Continued from OR - Provider: Jercia Uribe R.N. - Comment: bag level 300 [...] external solution (CANCELED) 1310 (Given - Provider: aDrlin Olmedo M.D. - Comment: Soaked on cottonoids [...]
--- OUTSIDE RECORDS SUMMARY | 2022-08-17 07:02 | XMS_ITS | Encounter Summary ---
:1965 Author Organization [facility] Address [address] [place] [address] Care Team Providers Name Role Phone Unavailable Primary Care Provider Unavailable Encounter Details Date Type Department Care Team Description 12/06/2019 Clinical Communication Department of Robert Diehl, Neurology in .. [place], [place] 200 [facility] 200 [place] [address] [phone] Social History Tobacco Use Types Packs/Day Years [...] you attend shinto or Patient refused 2021 mormon services? Do [...] during her next visit. Janis Preston R.N. UNT DEVELOPMENT ASSOCIATE Telephone Encounter - Janis Preston R.N. - 12/06/2019 1:35 PM CST ----- Message from Robert Diehl M.D. sent at 12/03/2019 10:17 AM ACCOUNT DEVELOPMENT ASSOCIATE ----- Regarding: FW: Overnight oximetry Good morning Would you be able to reach out and let this patient know the oximetry was unsuccessful and would need to be repeated and ask if they would like to do this? Thank you! Electronically signed by: Robert Diehl M.D. 12/03/19 10:18 AM ACCOUNT DEVELOPMENT ASSOCIATE ----- Message ----- From: Carolynn Stokes Sent: 11/29/2019 2:39 PM ACCOUNT DEVELOPMENT ASSOCIATE To: Robert Diehl M.D. Subject: Overnight oximetry Your patients overnight oximetry test did not have recorded data of sufficient duration for an interpretation to be completed and was returned four months after appointment. Therefore an overnight oximetry report will not be generated to [facility]. Please contact your clinical assistant sales manager to reschedule an overnight oximetry test if you wish the patient to repeat an overnight oximetry test. UNT DEVELOPMENT ASSOCIATE documented in this encounter Plan of Treatment Upcoming Encounters Date Type Specialty Care Team Description 09/01/2022 Clinical Communication Admitting/Central Scheduling 09/06/2022 Appointment Radiology Alfredo Herrera O.P.A.-C. [address] [place] [address] 09/06/2022 Office Visit Orthopedic Surgery Cyrus Polk M.D. [address] [place] [address] documented as of this encounter Results PUL [...] Organization Address City/State/ZIP Code Phon e Number [facility] documented in this encounter Visit Diagnoses Diagnosis Fatigue - Primary Fatigue documented in this encounter Additional Health Concerns Assessment Noted Time PHQ-9 Depression Total Score: 5 04/05/2019 8:00 AM CDT documented as of this encounter
--- OUTSIDE RECORDS SUMMARY | 2022-08-17 07:02 | XMS_ITS | Encounter Summary ---
:1965 Author Organization [facility] Address [address] [place] [address] Care Team Providers Name Role Phone Unavailable Primary Care Provider Unavailable Encounter Details Date Type Department Care Team Description 08/06/2020 Clinical Communication Department of Honorio, Otorhinolaryngology in [place], [place] [address] [place] [address] [facility] [phone] [place] [phone] Social History Tobacco Use Types Packs/Day Years [...] states that she had them done at [facility]. I called the facility and requested [...] she had a CT Scan today in [place]. If her doctor there feels she needs [...] Appointment Radiology Alfredo Herrera O.P.A.-C. [address] [place] [address] 09/06/2022 Office Visit Orthopedic Surgery Cyrus Polk M.D. [address] [place] [address] documented as of this encounter Visit Diagnoses Not on filedocumented in this encounter Additional Health Concerns Assessment Noted Time PHQ-9 Depression Total Score: 5 04/05/2019 8:00 AM CDT documented as of this encounter
--- OUTSIDE RECORDS SUMMARY | 2022-08-17 07:02 | XMS_ITS | Encounter Summary ---
:1965 Author Organization [facility] Address [address] [place] [address] Care Team Providers Name Role Phone Unavailable [...] Appointment Radiology Alfredo Herrera O.P.A.-C. [address] [place] [phone] 09/06/2022 Office Visit Orthopedic Surgery Cyrus Polk M.D. [address] [place] [phone] documented as of this encounter Procedures Procedure Name Priority Date/Time Associated Comments Diagnosis OTORHINOLARYNGOLOGY IMAGE Routine 01/08/2020 3:15 Results for this EXAM PM BOX SPRING FRAME BUILDER procedure are i n the results section. documented in this encounter Results NOSE-Otorhinolaryngology Image Exam (01/08/2020 3:15 PM BOX SPRING FRAME BUILDER) Specimen (Source) Anatomical Collection Method Collection Time Re ceived Time Location / / Volume Laterality 01/08/2020 3:11 PM BOX SPRING FRAME BUILDER Narrative IIMS - 01/08/2020 3:29 PM BOX SPRING FRAME BUILDER This order has been created and auto-finalized to support the import of images acquired without order. The clini frnace documentation to support these images can be [...]
--- OUTSIDE RECORDS SUMMARY | 2022-08-17 07:02 | XMS_ITS | Encounter Summary ---
:1965 Author Organization [facility] Address [address] [place] [address] Care Team Providers Name Role Phone Unavailable Primary Care Provider Unavailable Encounter Details Date Type Department Care Team Description 11/29/2019 Hospital Encounter Department of Jey Santana, Rhinosi nusitis Chronic; Laboratory Medicine M.D. Preanesthetic Medical Exam and Pathology, [address] [place] [address] in [facility] [address] [place] [phone] [place] [address] (Work) [place], [place] [phone] (Fax) [phone] Social History Tobacco Use Types Packs/Day Years [...] you attend baptism or Patient refused 2021 yazdanism services? Do [...] Appointment Radiology Alfredo Herrera O.P.A.-C. [address] [place] [phone] 09/06/2022 Office Visit Orthopedic Surgery Cyrus Polk M.D. [address] [place] [phone] documented as of this encounter Procedures Procedure Name Priority Date/Time Associated Diagnosis Comme nts CBC WITHOUT Routine 11/29/2019 11:30 Rhinosinusitis Chronic R esults for this DIFFERENTIAL, B AM OUTSIDE SALES ASSOCIATE procedure ar e in the results section. CREATININE WITH Routine 11/29/2019 11:30 Preanesthetic Medical Results for this EGFR, S/P AM OUTSIDE SALES ASSOCIATE Exam procedure are i n the results section. documented in this encounter Results Creatinine with Estimated GFR - for Lab Draw (11/29/2019 11:30 AM OUTSIDE SALES ASSOCIATE) athologist Signature Creatinine 0.98 0.59 - 11/29/2019 DTL 1.04 mg/dL 1:05 PM OUTSIDE SALES ASSOCIATE eGFR-Non 65 >=60 11/29/2019 DTL Black/ mL/min/BSA 1:05 PM OUTSIDE SALES ASSOCIATE Greenlandic Comment: ----ADDITIONAL INFORMATION---- Estimated GFR calculated using the 2009 CKD_EPI creatinine equation. eGFR-Black/ 75 >=60 mL/min/BSA 2019 1:05 PM OUTSIDE SALES ASSOCIATE DTL Comment: ----ADDITIONAL INFORMATION---- Estimated GFR calculated using the 2009 CKD_EPI creatinine equation. Specimen Anatomical Collection Method Collection Time Receive d Time (Source) Location / / Volume Laterality Blood (Blood, 11/29/2019 11:30 11/29/2019 Venous) AM OUTSIDE SALES ASSOCIATE 11:50 AM OUTSIDE SALES ASSOCIATE Miranda Collado APRN, C.N.P., M.S.N. LAB BLOOD ADD-ON Performing Organization Address City/State/ZIP Code Phon e Number [facility] - [address] [place] [phone] [facility] [place] [address] [facility] 200 [facility] (ABNORMAL) CBC without Differential (11/29/2019 11:30 AM OUTSIDE SALES ASSOCIATE) [facility] gist Method Time Signature Hemoglobin 13.3 11.6 - 11/29/2019 DTL 15.0 g/dL 12:09 PM OUTSIDE SALES ASSOCIATE Hematocrit 40.6 35.5 - 11/29/2019 DTL 44.9 % 12:09 PM OUTSIDE SALES ASSOCIATE Erythrocytes 4.08 3.92 - 11/29/2019 DTL 5.13 12:09 PM OUTSIDE SALES ASSOCIATE x10(12)/L MCV 99.5 (H) 78.2 - 11/29/2019 DTL 97.9 fL 12:09 PM OUTSIDE SALES ASSOCIATE RBC Distrib Width 13.3 12.2 - 11/29/2019 DTL 16.1 % 12:09 PM OUTSIDE SALES ASSOCIATE Platelet Count 234 157 - 371 11/29/2019 DTL x10(9)/L 12:09 PM OUTSIDE SALES ASSOCIATE Leukocytes 5.8 3.4 - 9.6 11/29/2019 DTL x10(9)/L 12:09 PM OUTSIDE SALES ASSOCIATE Specimen Anatomical Collection Method Collection Time Receive d Time (Source) Location / / Volume Laterality Blood (Blood, 11/29/2019 11:30 11/29/2019 Venous) AM OUTSIDE SALES ASSOCIATE 11:50 AM OUTSIDE SALES ASSOCIATE Jey Santana M.D. LAB BLOOD ADD-ON Performing Organization Address City/State/ZIP Code Phon e Number [facility] - [address] [place], [place] [address] [place] [address] [facility] [address] [facility] documented in this encounter Visit Diagnoses Diagnosis Rhinosinusitis Chronic Preanesthetic Medical Exam documented in this encounter Additional Health Concerns Assessment Noted Time PHQ-9 Depression Total Score: 5 04/05/2019 8:00 AM CDT documented as of this encounter
--- OUTSIDE RECORDS SUMMARY | 2022-08-17 07:02 | XMS_ITS | Encounter Summary ---
:1965 Author Organization [facility] Address [address] [place] [address] Care Team Providers Name Role Phone Unavailable Primary Care Provider Unavailable Reason for Visit Outpatient (Routine) - Closed Specialty Diagnoses / Procedures Referred By Contact Refer red To Contact Otorhinolaryngology Darlin Olmedo M.D . [facility] [address] [place] [phone] Referral ID Status Reason Start Date Expiration Date Visits Requ ested Visits Authorized [id number] Closed 12/18/2019 12/17/2020 1 1 Encounter Details Date Type Department Care Team Description 01/08/2020 Office Visit Department of Darlin Olmedo Mucocele Nasa l Sinus Otorhinolaryngology jimmy Brumfield M.D. (Primary Dx) [address] [place] [phone] Social History Tobacco Use Types [...] you attend yazidism or Patient refused 2021 adventism services? Do you belong to any clubs or No 05/17/2022 organizations such as yazidism groups, unions, fraMatchbin or athletic groups, or school groups? How [...] She will continue saline irrigations and Flonase. OF BUSINESS DEVELOPMENT Associated attestation - Darlin Olmedo M.D. - 01/16/2020 5:45 PM HEAD OF BUSINESS DEVELOPMENT I saw and evaluated the patient, participating in the dodson portions of the service. I reviewed the resident/fellow???s note. I agree with the resident/fellow???s findings and plan. Mucocele cavities andfrontal recesses patent on both sides. documented in this encounter Plan of Treatment Upcoming Encounters Date Type Specialty Care Team Description 09/01/2022 Clinical Communication Admitting/Central Scheduling 09/06/2022 Appointment Radiology Alfredo Herrera O.P.A.-C. [address] [place] [address] 09/06/2022 Office Visit Orthopedic Surgery Cyrus Polk M.D. [address] [place] [address] documented as of this encounter Visit Diagnoses Diagnosis Mucocele Nasal Sinus - Primary documented in this encounter Additional Health Concerns Assessment Noted Time PHQ-9 Depression Total Score: 5 04/05/2019 8:00 AM CDT documented as of this encounter
--- OUTSIDE RECORDS SUMMARY | 2022-08-17 07:02 | XMS_ITS | Encounter Summary ---
:1965 Author Organization [facility] Address [address] [place] [address] Care Team Providers Name Role Phone Unavailable Primary Care Provider Unavailable Reason for Visit Reason Comments shyam Encounter Details Date Type Department Care Team Description 07/29/2020 Clinical Communication Department of Robert Diehl [id number]/[id number] Neurology in [place], [place] [address] [place] [address] 200 [place] [phone] Social History Tobacco Use Types Packs/Day Years [...] you attend episcopal or Patient refused 2021 buddhist services? Do [...] for magnetic resonance angiogram be sent to [place]. José Miguel advise what the exact testing [...] Appointment Radiology Alfredo Herrera O.P.A.-C. [address] [place] [address] 09/06/2022 Office Visit Orthopedic Surgery Cyrus Polk M.D. [address] [place] [address] documented as of this encounter Visit Diagnoses Diagnosis Stroke (HCC) - Primary Headache Unspecified Thrombosis Arterial (HCC) documented in this encounter Additional Health Concerns Assessment Noted Time PHQ-9 Depression Total Score: 5 04/05/2019 8:00 AM CDT documented as of this encounter
--- OUTSIDE RECORDS SUMMARY | 2022-08-17 07:02 | XMS_ITS | Encounter Summary ---
:1965 Author Organization [facility] Address [address] [place] [address] Care Team Providers Name Role Phone Unavailable Primary Care Provider Unavailable Encounter Details Date Type Department Care Team Description 12/07/2019 Anesthesia Event RST ROMB LUISA OR Leonides Walker, [address] [facility] [address] [address] [place] [address] [place] [phone] (Wo rk) Anesthesia Record Procedure [...] staff during [facility] we 1. Identified the patient 2. Ident [...] Simin valentine, Jey García, (created via procedure CLERK TO JUSTICE, COLLEGE SERVICE OFFICER CLERK TO JUSTICE, TY A documentation); Mask Ventilation: Easy mask; [...] you attend druze or Patient refused 2021 denominational services? Do you belong to any clubs or No 05/17/2022 organizations such as druze groups, unions, fraRelinkLabs or athletic groups, or school groups? How [...] Procedure Summary Date: 12/07/19 Room / Location: [place] [address] ROMB 01 580 / [facility] in [place], [place] Anesthesia Start: 1234 Anesthesia Stop: 1434 Procedures: SINUSOTOMY ENDOSCOPY FRONTAL. (Bilateral Nose) EXTRADURAL COMPUTER NAVIGATION. 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 Responsible Provider: Leonides Walker [...] Promethazine; otherwise, uneventful recovery with outpt dispo. AR TRIMMER Anesthesia Procedure Notes - Gini Garcia APRN, [...] Procedure outcome: successful Airway event: no complications AR TRIMMER Anesthesia Preprocedure Evaluation - Leonides Walker M.D. - 12/07/2019 11:59 AM CST Preprocedure Anesthesia & H&P Assessment Procedure Summary Date/Time: 12/07/19 1119 Procedures: SINUSOTOMY ENDOSCOPY FRONTAL. (Bilateral Nose) EXTRADURAL COMPUTER NAVIGATION. 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 Location: [place] [address] / [facility] in [place], [place] Provider: Darlin Olmedo M.D. Pertinent components [...] #11 Patent Foramen Ovale (HCC) Noted on [id number]/ ECHO otherwise normal. I will not pursue [...] with patient /legal guardian or through an apartment assistant manager. The use of blood products not discussed Approval to Proceed: approved for anesthesia AR TRIMMER documented in this encounter Plan of Treatment Upcoming Encounters Date Type Specialty Care Team Description 09/01/2022 Clinical Communication Admitting/Central Scheduling 09/06/2022 Appointment Radiology Alfredo Herrera O.P.A.-C. [address] [place] [phone] 09/06/2022 Office Visit Orthopedic Surgery Cyrus Polk M.D. [address] [place] [phone] documented as of this encounter Procedures Procedure Name Priority Date/Time Associated Comments Diagnosis LDA ANE ENDOTRACHEAL Routine 12/07/2019 12:47 Res ults for this AIRWAY PM COLLAR TRIMMER procedure are i n the results section. documented in this encounter Results LDA ANE ENDOTRACHEAL AIRWAY (12/07/2019 12:47 PM COLLAR TRIMMER) Narrative Gini Garcia APRN, CRNA - 2019 12:47 PM COLLAR TRIMMER Gini Garcia APRN, CRNA ? 12/07/2019 12:49 [...] dexamethasone injection (DECADRON) Given 12/07/2019 12:43 PM COLLAR TRIMMER 4 mg As needed, Starting on Tue12/07/19 at 1243, Anesthesia Intra-op ePHEDrine (PF) injection Given 12/07/2019 12:48 PM COLLAR TRIMMER 5 mg intravenous, As needed, Starting on Tue12/07/19 at 1242, Anesthesia Intra-op Given 12/07/2019 12:42 PM COLLAR TRIMMER 25 mg fentaNYL injection 25 mcg (SUBLIMAZE) Given 12/07/2019 2:32 PM COLLAR TRIMMER 25 mcg 25 mcg, intravenous, Every 2 min PRN, For pain 4 or greater (maximum 100 mcg). If max dose of Fentanyl is reached and if pain is greater than 4, discontinue Fentanyl: give Hydromorphone, Starting on Tue12/07/19 at 1145, Pre-Op lactated ringers New Bag 12/07/2019 12:39 PM COLLAR TRIMMER intravenous, Continuous Infusion: Per Instructions PRN, Starting on Tue12/07/19 at 1239, Anesthesia Intra-op lidocaine (PF) (cardiac) injection Given 12/07/2019 12:40 PM COLLAR TRIMMER 100 mg intravenous, As needed, Starting on Tue12/07/19 at 1240, Anesthesia Intra-op ondansetron (PF) injection (ZOFRAN) Given 12/07/2019 1:57 PM COLLAR TRIMMER 4 mg intravenous, As needed, Starting on Tue12/07/19 at 1357, Anesthesia Intra-op phenylephrine injection Given 12/07/2019 12:50 PM COLLAR TRIMMER 100 mcg intravenous, As needed, Starting on Tue12/07/19 at 1246, Anesthesia Intra-op Given 12/07/2019 12:48 PM COLLAR TRIMMER 100 mcg Given 12/07/2019 12:46 PM COLLAR TRIMMER 100 mcg propofol 10 mg/mL infusion Rate/Dose 12/07/2019 75 mcg/kg/min 34.4 m L/hr (DIPRIVAN) Change 12:46 PM COLLAR TRIMMER intravenous, Continuous Infusion: Per Instructions PRN, Starting on Tue12/07/19 at 1241, Anesthesia Intra-op New Bag 12/07/2019 12:41 PM COLLAR TRIMMER 250 mcg/kg/min 115 mL/hr propofol injection (DIPRIVAN) Given 12/07/2019 12:42 PM COLLAR TRIMMER 100 mg intravenous, As needed, Starting on Tue12/07/19 at 1242, Anesthesia Intra-op remifentanil 20 mcg/mL in Rate/Dose 12/07/2019 1:43 0.1 mcg/kg/min 2 2.9 mL/hr NaCl 0.9% 100 mL infusion Change PM COLLAR TRIMMER (ULTIVA) Continuous Infusion: Per Instructions PRN, Starting on Tue12/07/19 at 1246, Anesthesia Intra-op Rate/Dose Change 12/07/2019 12:53 PM COLLAR TRIMMER 0.2 mcg/kg/min 45.8 mL/hr New Bag 12/07/2019 12:46 PM COLLAR TRIMMER 0.25 mcg/kg/min 57.3 mL/hr succinylcholine (PF) injection (ANECTINE ) Given 12/07/2019 12:42 PM COLLAR TRIMMER 10 mg intravenous, As needed, Starting on Tue12/07/19 at 1242, Anesthesia Intra-op vancomycin in NaCl 0.9% IVPB 1,250 mg Given 12/07/2019 12:51 PM COLLAR TRIMMER 1.25 g 1,250 mg (rounded from 1,146 [...]
--- OUTSIDE RECORDS SUMMARY | 2022-08-17 07:02 | XMS_ITS | Encounter Summary ---
:1965 Author Organization [facility] Address [address] [place] [address] Care Team Providers Name Role Phone Unavailable Primary Care Provider Unavailable Encounter Details Date Type Department Care Team Description 12/08/2019 Documentation Department of Darlin Olmedo, Otorhinolaryngology in [place], [place] [address] [place] [address] 200 [place] [phone] Social History Tobacco Use Types Packs/Day Years [...] you attend jain or Patient refused 2021 spiritism services? Do [...] Chronicpain for spine pathology with oxycodone use curatorial specialist. Additional doses of oxycodone not sufficient for [...] she is currently having. -Dr. Clemente Medley TIONS ARCHITECT CONSULTANT documented in this encounter Plan of Treatment Upcoming Encounters Date Type Specialty Care Team Description 09/01/2022 Clinical Communication Admitting/Central Scheduling 09/06/2022 Appointment Radiology Alfredo Herrera O.P.A.-C. [address] [place] [phone] 09/06/2022 Office Visit Orthopedic Surgery Cyrus Polk M.D. [address] [place] [phone] documented as of this encounter Visit Diagnoses Not on filedocumented in this encounter Additional Health Concerns Assessment Noted Time PHQ-9 Depression Total Score: 5 04/05/2019 8:00 AM CDT documented as of this encounter
--- OUTSIDE RECORDS SUMMARY | 2022-08-17 07:02 | XMS_ITS | Encounter Summary ---
:[address] [facility] Address [address] [place] [address] Care Team Providers Name Role Phone Unavailable [...] you attend sabianism or Patient refused 2021 baptism services? Do [...] Appointment Radiology Alfredo Herrera O.P.A.-C. [address] [place] [phone] 09/06/2022 Office Visit Orthopedic Surgery Cyrus Polk M.D. [address] [place] [phone] documented as of this encounter Procedures Procedure Name Priority Date/Time Associated Comments Diagnosis OTORHINOLARYNGOLOGY IMAGE Routine 12/07/2019 12:15 Results for this EXAM PM KETTLE COOK procedure are i n the results section. documented in this encounter Results NOSE-Otorhinolaryngology Image Exam (12/07/2019 12:15 PM KETTLE COOK) Specimen (Source) Anatomical Collection Method Collection Time Re ceived Time Location / / Volume Laterality 12/07/2019 12:15 PM KETTLE COOK Narrative [facility] - 12/07/2019 2:07 PM KETTLE COOK This order has been created and auto-finalized [...]
--- OUTSIDE RECORDS SUMMARY | 2022-08-17 07:02 | XMS_ITS | Encounter Summary ---
:1965 Author Organization [facility] Address [address] [place] [address] Care Team Providers Name Role Phone Unavailable [...] you attend sabianism or Patient refused 2021 jehovah's witness services? [...] Appointment Radiology Alfredo Herrera O.P.A.-C. [address] [place] [phone] 09/06/2022 Office Visit Orthopedic Surgery Cyrus Polk M.D. [address] [place] [phone] documented as of this encounter Procedures Procedure Name Priority Date/Time Associated Comments Diagnosis OTORHINOLARYNGOLOGY IMAGE Routine 12/18/2019 1:57 Results for this EXAM PM MECHANICAL PLANNER procedure are i n the results section. documented in this encounter Results NOSE-Otorhinolaryngology Image Exam (12/18/2019 1:57 PM MECHANICAL PLANNER) Specimen (Source) Anatomical Collection Method Collection Time Re ceived Time Location / / Volume Laterality 12/18/2019 1:57 PM MECHANICAL PLANNER Narrative [facility] - 12/18/2019 1:57 PM MECHANICAL PLANNER This order has been created and auto-finalized [...]
--- OUTSIDE RECORDS SUMMARY | 2022-08-17 07:02 | XMS_ITS | Encounter Summary ---
:1965 Author Organization [facility] Address [address] [place] [address] Care Team Providers Name Role Phone Unavailable Primary Care Provider Unavailable Reason for Visit Reason Onset Date Comments Medication Question 01/08/2020 Encounter Details Date Type Department Care Team Description 01/08/2020 Clinical Department of [place], Medication Communication Otorhinolaryngology in [place], [place] [address] [place] [address] [place] [phone] [place] [address] Social History Tobacco Use Types Packs/Day Years [...] not covered. Patient will do regular Flonase PION OF SUSTAINABLE DESIGN Telephone Encounter - Donna Martines - 01/08/2020 4:21 PM CST [facility] called about the Fluticasone Propionate (Flonase) prescription that was put through today. The insurance will not cover it because at the end of the SIG it says Sensimist. Please call the pharmacy at [phone], or place another order. Thank you, Donna PION OF SUSTAINABLE DESIGN documented in this encounter Plan of Treatment Upcoming Encounters Date Type Specialty Care Team Description 09/01/2022 Clinical Communication Admitting/Central Scheduling 09/06/2022 Appointment Radiology Alfredo Herrera O.P.A.-C. [address] [place] [address] 09/06/2022 Office Visit Orthopedic Surgery Cyrus Polk M.D. [address] [place] [address] documented as of this encounter Visit Diagnoses Not on filedocumented in this encounter Additional Health Concerns Assessment Noted Time PHQ-9 Depression Total Score: 5 04/05/2019 8:00 AM CDT documented as of this encounter
--- OUTSIDE RECORDS SUMMARY | 2022-08-17 07:02 | XMS_ITS | Encounter Summary ---
:1965 Author Organization [facility] Address [address] [place] [address] Care Team Providers Name Role Phone Unavailable Primary Care Provider Unavailable Encounter Details Date Type Department Care Team Description 12/07/2019 Surgery RST ROMB LUISA OR Darlin Olmedo, SINUSOTOMY ENDOSCOPY [address] [place] [place] [address] [address] [place] [address] [place] [phone] Social History Tobacco Use Types Packs/Day Years [...] you attend restorationism or Patient refused 2021 episcopalian services? Do [...] sinus rinse kit (jose ramon Dalal or [place]). - Follow the directions on the bottle [...] our clinic or with another department at [facility], an appointment willbe made for you. If you have not received specific details (date, time, location) within 2 weeks of discharge, please contact our office at [phone] to inquire. If you are to follow up somewhere other than [facility], please schedule this appointment (in the timeframe recommended by your surgeon)at your earliest convenience. CONTACT INFORMATION: If you need to reach the Department of ENT at the [facility] regarding any questions during normal business hours, please call . If you are calling after normal business hours and have a concern that needs to be addressed urgently, please call the [facility] Qa Auditor at and ask to speak to the ENT resident immersion metal cleaner. TS ADMINISTRATIVE ASSISTANT AttachmentsThe following attachments cannot be sent through Care Everywhere.Your Scopolamine Patch (Russian)documented in this encounter Medications at Time of [...] Extradural computer navigation was registered according to hull and deck remover's guidelines and confirmed to be accurate within [...] 5 mL Implants None Darlin Olmedo M.D. TS ADMINISTRATIVE ASSISTANT Brief Op Note - Jey Santana M.D. [...] Loss None Implants None Jey Santana M.D. TS ADMINISTRATIVE ASSISTANT documented in this encounter Plan of Treatment Upcoming Encounters Date Type Specialty Care Team Description 09/01/2022 Clinical Communication Admitting/Central Scheduling 09/06/2022 Appointment Radiology Alfredo Herrera O.P.A.-C. [address] [place] [address] 09/06/2022 Office Visit Orthopedic Surgery Cyrus Polk M.D. [address] [place] [address] documented as of this encounter Procedures Procedure Name Priority Date/Time Associated Diagnosis Comme nts ADULT OXYGEN THERAPY Routine 12/07/2019 2:30 PM EVENTS ADMINISTRATIVE ASSISTANT EXTRADURAL COMPUTER 12/07/2019 12:13 PM Rhinosin usitis Chronic NAVIGATION EVENTS ADMINISTRATIVE ASSISTANT Mucocele Nasal Sinus Case Notes PROFESSOR OF GENETICS 10:37 SINUSOTOMY ENDOSCOPY 12/07/2019 12:13 PM EVENTS ADMINISTRATIVE ASSISTANT Rhi nosinusitis Chronic FRONTAL Mucocele Nasal Sinus Case Notes PROFESSOR OF GENETICS 10:37 documented in this encounter Visit Diagnoses Diagnosis Rhinosinusitis Chronic Mucocele Nasal Sinus documented in this encounter Administered Medications Inactive Administered Medications - up to 3 most recent administrations Medication Order MAR Action Action Date Dose Rate Site acetaminophen injection 1,000 New Bag 12/07/2019 2:38 PM 1,000 mg 400 mL/hr mg (OFIRMEV) EVENTS ADMINISTRATIVE ASSISTANT 1,000 mg, intravenous, at 400 mL/hr, Administer [...] 1,000 mg (TYLENOL) Given 12/07/2019 12:06 PM EVENTS ADMINISTRATIVE ASSISTANT 1,000 mg 1,000 mg, oral, Once, On Tue12/07/19 at 1200, For 1 dose, Pre-Op aprepitant capsule 40 mg (EMEND) Given 12/07/2019 12:06 PM EVENTS ADMINISTRATIVE ASSISTANT 40 mg 40 mg, oral, Once as needed, prevent ponv, Starting on Tue12/07/19 at 1145, For 1 dose, Pre-Op caffeine tablet 200 mg Given 12/07/2019 12:06 PM EVENTS ADMINISTRATIVE ASSISTANT 200 mg 200 mg, oral, Once as needed, pre-op to prevent caffeine withdrawal headache or to enhance emergence from anesthesia/sedation, Starting on Tue12/07/19 at 1145, For 1 dose, Pre-Op, With sips cocaine 4 % external solution Given 12/07/2019 1:10 PM EVENTS ADMINISTRATIVE ASSISTANT 4 mL Other As needed, Starting on Tue12/07/19 at 1310, Intra-Op droperidol injection 0.625 mg (INAPSINE) Given 12/07/2019 2:37 PM EVENTS ADMINISTRATIVE ASSISTANT 0.625 mg 0.625 mg, intravenous, Every 6 [...] 25 mcg (SUBLIMAZE) Given 12/07/2019 2:32 PM EVENTS ADMINISTRATIVE ASSISTANT 25 mcg 25 mcg, intravenous, Every 2 min PRN, For pain 4 or greater (maximum 100 mcg). If max dose of Fentanyl is reached and if pain is greater than 4, discontinue Fentanyl: give Hydromorphone, Starting on Tue12/07/19 at 1145, Pre-Op ketamine injection 10 mg (KETALAR) Given 12/07/2019 2:37 PM EVENTS ADMINISTRATIVE ASSISTANT 10 mg 10 mg, intravenous, Once as needed, Pain sedation mismatch AND RASS score less than -1, Starting on Tue12/07/19 at 1430, For 1 dose, PACU (only) lactated ringers New Bag 12/07/2019 3:48 PM EVENTS ADMINISTRATIVE ASSISTANT 20 mL/hr 20 mL/hr 20 mL/hr, intravenous, Continuous, Starting on Tue12/07/19 at 1400, PACU & Post-Op Continued from OR 12/07/2019 2:25 PM EVENTS ADMINISTRATIVE ASSISTANT 20 mL/hr 20 mL/hr lidocaine-EPINEPHrine 1 %-1:100,000 Given 12/07/2019 1:45 PM EVENTS ADMINISTRATIVE ASSISTANT 2 mL Other injection (XYLOCAINE W/EPI) As needed, Starting on Tue12/07/19 at 1320, Intra-Op Given 12/07/2019 1:20 PM EVENTS ADMINISTRATIVE ASSISTANT 1.5 mL Other metoprolol tablet 12.5 mg [...] 2 mg (VERSED) Given 12/07/2019 12:28 PM EVENTS ADMINISTRATIVE ASSISTANT 2 mg 2 mg, intravenous, Once as needed, anxiety, sedation, Starting on Tue12/07/19 at 1145, For 1 dose, Pre-Op ondansetron ODT disintegrating tablet 4 mg Given 12/07/2019 12:0 7 PM EVENTS ADMINISTRATIVE ASSISTANT 4 mg (ZOFRAN-ODT) 4 mg, sublingual, Once, On Tue12/07/19 at 1200, For 1 dose, Pre-Op, When splitting ODT at bedside, handle with gloves and a pill splitter to prevent moisture contact. oxymetazoline 0.05 % nasal spray Given 12/07/2019 1:42 PM EVENTS ADMINISTRATIVE ASSISTANT 1 application (AFRIN) As needed, Starting on Tue12/07/19 at 1342, Intra-Op scopolamine base 1 mg Medication Applied 12/07/2019 12:11 PM 1 patch Behind Right over 3 days 1 patch EVENTS ADMINISTRATIVE ASSISTANT Ear (TRANSDERM SCOP) 1 patch, transdermal, Administer [...] Recently Administered Medications Times are shown in EVENTS ADMINISTRATIVE ASSISTANT. Scheduled Medication Order 12/05/2019 12/06/2019 12/07/2019 acetaminophen [...] (COMPLETED) 1251 (Given - Provider: Gini Garcia, DISTRIBUTION OPERATION SUPERVISOR, ANIMAL NURSERY WORKER) 1,250 mg (rounded from 1,146 mg [...] mcg (SUBLIMAZE) 1432 (Given - Provider: Jey Hanccok RBrittonNBritton) 25 mcg, intravenous, Every 2 min [...]
--- OUTSIDE RECORDS SUMMARY | 2022-08-17 07:02 | XMS_ITS | Encounter Summary ---
:1965 Author Organization [facility] Address [address] [place] [address] Care Team Providers Name Role Phone Unavailable Primary Care Provider Unavailable Encounter Details Date Type Department Care Team Description 01/07/2020 Diagnostic Division of Pulmonary Akhil Diehl M.D. [facility] in [place], [facility] [address] [place], [place] 200 [facility] [address] [place] [address] [phone] Social History Tobacco Use Types Packs/Day Years [...] you attend quaker or Patient refused 2021 sikhism services? Do [...] Appointment Radiology Alfredo Herrera O.P.A.-C. [address] [place] [phone] 09/06/2022 Office Visit Orthopedic Surgery Cyrus Polk M.D. [address] [place] [phone] documented as of this encounter Procedures Procedure [...]
--- OUTSIDE RECORDS SUMMARY | 2022-08-17 07:02 | XMS_ITS | Encounter Summary ---
:1965 Author Organization [facility] Address [address] [place] [address] Care Team Providers Name Role Phone Unavailable Primary Care Provider Unavailable Reason for Referral Outpatient (Routine) - Closed Specialty Diagnoses / Procedures Referred By Contact Refer red To Contact Otorhinolaryngology Darlin Olmedo M.D . [address] [address] Referral ID Status Reason Start Date Expiration Date Visits Requ ested Visits Authorized [id number] Closed 12/18/2019 12/17/2020 1 1 ARCH QUALITY ASSURANCE ANALYST Reason for Visit Outpatient (Routine) - Closed Specialty Diagnoses / Procedures Referred By Contact Refer red To Contact Otorhinolaryngology Darlin Olmedo M.D . [address] [address] Referral ID Status Reason Start Date Expiration Date Visits Requ ested Visits Authorized [id number] Closed 11/29/2019 11/28/2020 1 1 Encounter Details Date Type Department Care Team Description 12/18/2019 Office Visit Department of Darlin lOmedo Mucocele Nasa l Sinus Otorhinolaryngology jimmy Brumfield M.D. (Primary Dx) [address] [place] [phone] Social History Tobacco Use Types Packs/Day Years [...] you attend protestant or Patient refused 2021 restorationist services? Do [...] we will refer to neurology headache clinic. ARCH QUALITY ASSURANCE ANALYST documented in this encounter Plan of Treatment Upcoming Encounters Date Type Specialty Care Team Description 09/01/2022 Clinical Communication Admitting/Central Scheduling 09/06/2022 Appointment Radiology Alfredo Herrera O.P.A.-C. 200 [place] [address] 09/06/2022 Office Visit Orthopedic Surgery Cyrus Polk M.D. 200 [place] [address] Scheduled Referrals Name Type Priority Associated Order [...]
--- OUTSIDE RECORDS SUMMARY | 2022-08-17 07:02 | XMS_ITS | Encounter Summary ---
:1965 Author Organization [facility] Address [address] [place] [address] Care Team Providers Name Role Phone Unavailable Primary Care Provider Unavailable Reason for Visit Reason Comments Michel Encounter Details Date Type Department Care Team Description 09/04/2020 Clinical Communication Department of Robert Diehl W8B[facility] in [place], [place] [address] [place] [address] 200 [place] [phone] Social History Tobacco Use Types Packs/Day Years [...] attend jehovah's witness or Patient refused 2021 adventist services? Do [...] Appointment Radiology Alfredo Herrera O.P.A.-C. [address] [place] [address] 09/06/2022 Office Visit Orthopedic Surgery Cyrus Polk M.D. [address] [place] [address] documented as of this encounter Visit Diagnoses Not on filedocumented in this encounter Additional Health Concerns Assessment Noted Time PHQ-9 Depression Total Score: 5 04/05/2019 8:00 AM CDT documented as of this encounter
--- OUTSIDE RECORDS SUMMARY | 2022-08-17 07:02 | XMS_ITS | Encounter Summary ---
:1965 Author Organization [facility] Address [address] [place] [address] Care Team Providers Name Role Phone Unavailable Primary Care Provider Unavailable Reason for Visit Outpatient (Routine) - Closed Specialty Diagnoses / Procedures Referred By Contact Refer red To Contact General Surgery Diagnoses Rhinosinusitis Chronic Jey Santana M.D. [facility] [address] [place] [phone] Referral ID Status Reason Start Date Expiration Date Visits Requ ested Visits Authorized [id number] Closed 11/08/2019 11/07/2020 1 1 Encounter Details Date Type Department Care Team Description 11/29/2019 Comprehensive Visit Preoperative Jey Santana M.D. [address] [place] [phone] Preanesthetic Medical Exam (Primary Dx); Evaluation Center in Lanre Carvajal M.D. [address] [place] [phone] Rhinosinusitis Chronic [place], [place] [address] [place] [phone] Social History Tobacco Use Types Packs/Day Years [...] you attend religion or Patient refused 2021 oriental orthodox services? [...] Comments Blood Pressure 108/74 11/29/2019 12:45 PM MARINE PHOTOGRAPHER Pulse 104 11/29/2019 12:45 PM MARINE PHOTOGRAPHER Temperature 36.5 ??C (97.7 ??F) 11/29/2019 12:45 PM MARINE PHOTOGRAPHER Respiratory Rate - - Oxygen Saturation 96% 11/29/2019 12:45 PM MARINE PHOTOGRAPHER Inhaled Oxygen Concentration - - Weight 76.4 kg (168 lb 6.9 oz) 11/29/2019 12:45 PM MARINE PHOTOGRAPHER Height 151.7 cm (4' 11.72) 11/29/2019 12:45 PM MARINE PHOTOGRAPHER Body Mass Index 33.2 11/29/2019 12:45 PM MARINE PHOTOGRAPHER documented in this encounter H&P Notes Lanre Carvajal M.D. - 11/29/2019 12:45 PM CST Preoperative Medical Evaluation Patient Name: Angie Mosquera Age: 54 y.o. Date of : 1965 Patient [address]: [address] [place] [phone] Primary Care Provider: No primary care provider [...] #11 Patent Foramen Ovale (HCC) Noted on [id number]/ ECHO otherwise normal. I will not pursue anything further NE PHOTOGRAPHER documented in this encounter Plan of Treatment Upcoming Encounters Date Type Specialty Care Team Description 09/01/2022 Clinical Communication Admitting/Central Scheduling 09/06/2022 Appointment Radiology Alfredo Herrera O.P.A.-C. [address] [place] [address] 09/06/2022 Office Visit Orthopedic Surgery Cyrus Polk M.D. [address] [place] [address] documented as of this encounter Results Creatinine with Estimated GFR - for Lab Draw (11/29/2019 11:30 AM MARINE PHOTOGRAPHER) P athologist Signature Creatinine 0.98 0.59 - 11/29/2019 DTL 1.04 mg/dL 1:05 PM MARINE PHOTOGRAPHER eGFR-Non 65 >=60 11/29/2019 DTL Black/ mL/min/BSA 1:05 PM MARINE PHOTOGRAPHER Gambian Comment: ----ADDITIONAL INFORMATION---- Estimated GFR calculated using the 2009 CKD_EPI creatinine equation. eGFR-Black/ 75 >=60 mL/min/BSA 2019 1:05 PM MARINE PHOTOGRAPHER DTL Comment: ----ADDITIONAL INFORMATION---- Estimated GFR calculated using the 2009 CKD_EPI creatinine equation. Specimen Anatomical Collection Method Collection Time Receive d Time (Source) Location / / Volume Laterality Blood (Blood, 11/29/2019 11:30 11/29/2019 Venous) AM MARINE PHOTOGRAPHER 11:50 AM MARINE PHOTOGRAPHER Miranda Collado APRN, C.N.P., M.S.N. LAB BLOOD ADD-ON Performing Organization Address City/State/ZIP Code Phon e Number [facility] - [address] [place], [place] [address] [facility] [place] [address] [facility] [address] documented in this encounter Visit Diagnoses Diagnosis Preanesthetic Medical Exam - Primary Rhinosinusitis Chronic documented in this encounter Additional Health Concerns Assessment Noted Time PHQ-9 Depression Total Score: 5 04/05/2019 8:00 AM CDT documented as of this encounter
--- OUTSIDE RECORDS SUMMARY | 2022-08-17 07:03 | XMS_ITS | Encounter Summary ---
:1965 Author Organization [facility] Address [address] [place] [address] Care Team Providers Name Role Phone Unavailable Primary Care Provider Unavailable Encounter Details Date Type Department Care Team Description 10/09/2019 Orders Only Department of Otorhinolaryngology Alana Engel, in [facility] [address] [place] [address] 200 [place] [phone] [place], [place] [phone] Social History Tobacco Use Types Packs/Day Years [...] you attend restoration or Patient refused 2021 gnosticism services? Do [...] Appointment Radiology Alfredo Herrera O.P.A.-C. [address] [place] [phone] 09/06/2022 Office Visit Orthopedic Surgery Cyrus Polk M.D. [address] [place] [phone] documented as of this encounter Visit Diagnoses Not on filedocumented in this encounter Additional Health Concerns Assessment Noted Time PHQ-9 Depression Total Score: 5 04/05/2019 8:00 AM CDT documented as of this encounter
--- OUTSIDE RECORDS SUMMARY | 2022-08-17 07:03 | XMS_ITS | Encounter Summary ---
:1965 Author Organization [facility] Address [address] [place] [address] Care Team Providers Name Role Phone Unavailable Primary Care Provider Unavailable Encounter Details Date Type Department Care Team Description 10/02/2019 Ancillary Procedure Department of Robert Diehl Arterial Radiology jimmy Celaya M.D. ([facility]) [place], [place] [address] [place] [address] [address] [place] [phone] Social History Tobacco Use Types Packs/Day Years [...] you attend sikhism or Patient refused 2021 cheondoism services? Do [...] Robert Diehl M.D. 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 COMMUNICATIONS LINE MECHANIC documented in this encounter Plan of Treatment Upcoming Encounters Date Type Specialty Care Team Description 09/01/2022 Clinical Communication Admitting/Central Scheduling 09/06/2022 Appointment Radiology Alfredo Hererra O.P.A.-C. [address] [place] [phone] 09/06/2022 Office Visit Orthopedic Surgery Cyrus Polk M.D. [address] [place] [phone] (work) documented as of this encounter Procedures Procedure Name Priority Date/Time Associated Comments Diagnosis INTERPRETATION OF RAD - Routine 10/02/2019 1:01 Thrombosis Result s for OUTSIDE MR NECK (most inpatients PM TELECOMMUNICATIONS LINE MECHANIC Arterial (HCC) this p rocedure and all are in the outpatients) results section. documented in this encounter Results Interpretation of Outside MR Neck (10/02/2019 1:01 PM TELECOMMUNICATIONS LINE MECHANIC) Anatomical Region Laterality Modality Neuroradiology RST LOS, Neuroradiology ARZ LOS, N/A Magnetic Resonance Neuroradiology FLA LOS, Neck Specimen (Source) Anatomical Collection Method Collection Time Re ceived Time Location / / Volume Laterality 10/02/2019 1:03 PM TELECOMMUNICATIONS LINE MECHANIC Impressions 10/02/2019 1:18 PM TELECOMMUNICATIONS LINE MECHANIC Similar appearance of the distal right vertebral artery irregularity and mild narrowing at C1, r elated to the nonocclusive luminal thrombus, as seen on the prior CTA exams . MRA neck otherwise negative and unchanged. Narrative 10/02/2019 1:18 PM TELECOMMUNICATIONS LINE MECHANIC EXAM: ??INTERPRETATION OF OUTSIDE MR NECK COMPARISON: [...]
--- OUTSIDE RECORDS SUMMARY | 2022-08-17 07:03 | XMS_ITS | Encounter Summary ---
:1965 Author Organization [facility] Address [address] [place] [address] Care Team Providers Name Role Phone Unavailable Primary Care Provider Unavailable Encounter Details Date Type Department Care Team Description 09/03/2019 Documentation Department of Neurology in Robert Fontanez M.D. [place], [place] 200 [facility] 200 [place] [phone] [phone] (Wo rk) Social History Tobacco Use Types [...] you attend moravian or Patient refused 2021 mu-ism services? Do [...] Radiology Alfredo Herrera O.P.A.-C. [address] [place] [address] 09/06/2022 Office Visit Orthopedic Surgery Cyrus Polk M.D. [address] [place] [address] documented as of this encounter Visit Diagnoses Not on filedocumented in this encounter Additional Health Concerns Assessment Noted Time PHQ-9 Depression Total Score: 5 04/05/2019 8:00 AM CDT documented as of this encounter
--- OUTSIDE RECORDS SUMMARY | 2022-08-17 07:03 | XMS_ITS | Encounter Summary ---
:1965 Author Organization [facility] Address [address] [place] [id number] Care Team Providers Name Role Phone Unavailable Primary Care Provider Unavailable Encounter Details Date Type Department Care Team Description 04/04/2019 - Hospital Encounter [facility] [place]anca, Stroke (H [facility]) (Primary Dx); 04/05/2019 [facility] M.D. Decline Functional Status; [facility], [address] [place] [address] Second floor [phone] [place] [address] [place], [place] (Work) [phone] Social History Tobacco Use [...] you attend anabaptist or Patient refused 2021 lutheran services? Do [...] up with your primary care provider in [place], [place] for ongoing monitoring of this. - Follow-up in [facility] (Dr. Diehl) in approximately 3 months??? [...] use disorder who initially was admitted to [facility] from 03/29/2019 to 03/31/2019 after presenting [...] use disorder who initially was admitted to [facility] from 03/29/2019 to 03/31/2019 after presenting [...] up with your primary care provider in [place], [place] for ongoing monitoring of this. - Follow-up in [facility] (Dr. Diehl) in approximately 3 months??? time with repeat CTA head/neck at that time. - Additional CTA in approximately 1 year (March 2020) to follow up paraclinoid ICA aneurysm. Discharge Instr - ActivityJesise Candelario P.T., D.P.T. - 04/05/2019 2:09 PM CDT Physical Therapy Discharge Summary MOBILITY RESTRICTIONS/PRECAUTIONS: Weight bearing: Weight bearing as tolerated Other: fall risk and other: visual changes CURRENT FUNCTIONAL STATUS: Patient currently independent in bed mobility. Mobilizing with supervision only on level surfaces with therapist managing hall monitor while inpatient. Stairs not assessed. RECOMMENDATIONS: [...] by Jessie Candelario P.T., D.P.T. Contact information: [facility], [address] Beryl Gaytan, Laquita Guardado - 04/05/2019 7:21 AM CDT Take a copy of this after visit summary to your appointment(s). [place], [place] April 10, 2019 -Tuesday --11:15 AM - Hospital Follow-Up with Dr. Rosalva MD Colleague of Juana Franz MD primary care provider, at [facility] RECOMMENDATIONS: * * [facility] You may have outpatient appointments at [facility] that changed during your hospitalization. Refer to your [facility] Patient Visit Guide (PVG) for the most current schedule of appointments and detailed instructions of tests/procedures. Call [phone], if you did not receive an PVG or need to CANCEL any [facility] appointment(s). You were discharged from the Neurology [...] No acute overnight events. Vertigo has improved. Rtwd-ls-[id number] headache continues. No new symptoms or concerns. [...] use disorder who initially was admitted to [facility] from 03/29/2019 to 03/31/2019 after presenting [...] being followed by a provider at the [facility]. Dose was increased to 1.5 tabs [...] VISIT Stroke/TIA HISTORY OF PRESENT ILLNESS Ms.??Angie Aslhey DuvallDemetri??is a 53 y.o.??female??with PMH including gastric [...] Noted ??? Rhinosinusitis Chronic 03/01/2019 ??? Stroke ([facility]) 03/29/2019 ??? Anxiety Generalized Disorder 03/29/2019 ??? Chronic Pain Syndrome 03/29/2019 ??? Fibromyalgia 03/29/2019 ??? 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 Sinusitis Recurrent 03/29/2019 ??? 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 Nicotine Dependence Cigarettes 03/29/2019 ??? 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 Transient Ischemic Attack ??? Aneurysm Cerebral Unruptured ([facility]) 03/30/2019 ??? Patent Foramen Ovale ([facility]) 03/31/2019 Current Facility-Administered Medications: ??? acetaminophen tablet [...] shows no new changes. MRI may not roll changer at this point as she is now therapeutic on warfarin. Prior stroke work up included hypercoaguable labs and DEVON. #2 Risk Factors - Addressed during prior visit. On a statin. #3 Functional status Back to baseline. Follow-up:Planned with Dr. iDehl regarding vertebral thrombus and intracranial aneurysm Call [...] 0 and symmetric in all muscle groups. Nkkzvk-mcoi-zzoaxt and heel- montes testing is normal. Deep [...] to clarify this, but would not necessarily roll changer. An MRI brain with and without [...] baseline. Have triaged to therapy only; no topline beading machine tender consult appears to be necessary at this time. If at any time, the therapists or referring service feel that a topline beading machine tender review is necessary, please send a new [...] Prior Function / Occupational Profile Level of [place]: Independent with ADLs and functional transfers Lives [...] Goal Met 04/05/19 Progress: Improving as expected @[id number]([id number])@ Plan Patient agrees with the plan of [...] Prior Function / Occupational Profile Level of [place]: Independent with ADLs and functional transfers Lives [...] for safety and for therapist to bring hall monitor, no obvious loss of balance noted, patient appeared steady with quick turns Training/Intervention: supervision for therapist to bring hall monitor Response: Patient mobilizing 200+ meters with [...] for safety and for therapist to bring hall monitor, no obvious loss of balance noted, patient appeared steady with quick turns Training/Intervention: supervision for therapist to bring hall monitor Response: Patient mobilizing 200+ meters with [...] use disorder who initially was admitted to [facility] from 03/29/2019 to 03/31/2019 after presenting [...] 09/06/2022 Appointment Radiology Alfredo Herrera O.P.A.-[facility]Britton [address] [place] [phone] 09/06/2022 Office Visit Orthopedic Surgery Cyrus Polk M.D. [address] [place] [address] documented as of this encounter Procedures Procedure [...] Potassium, S 4.1 3.6 - 5.2 04/05/2019 [facility] mmol/L 9:28 AM CDT LABORATORIES - [facility] Sodium, S 142 135 - 145 04/05/2019 [facility] mmol/L 9:28 AM CDT LABORATORIES - [facility] Chloride, S 105 98 - 107 04/05/2019 [facility] mmol/L 9:28 AM CDT LABORATORIES - [facility] Bicarbonate, S 25 22 - 29 04/05/2019 [facility] mmol/L 9:28 AM CDT LABORATORIES [facility] Anion Gap 12 7 - 15 04/05/2019 [facility] 9:28 AM CDT LABORATORIES [facility] BUN (Blood Urea 20 6 - 21 04/05/2019 [facility] Nitrogen), S mg/dL 9:28 AM CDT LABORATORIES [facility] Creatinine 0.88 0.59 - 04/05/2019 [facility] 1.04 mg/dL 9:28 AM CDT LABORATORIES [facility] eGFR-Non 74 >=60 04/05/2019 [facility] Black/ mL/min/BSA 9:28 AM CDT LABORATORIES - [facility] Comment: ----ADDITIONAL INFORMATION---- Estimated GFR calculated using the 2009 CKD_EPI creatinine equation. eGFR-Black/ 86 >=60 mL/min/BSA 04/05/2019 9:28 [facility] CDT LABORATORIES [facility] Comment: ----ADDITIONAL INFORMATION---- Estimated GFR calculated using the 2009 CKD_EPI creatinine equation. Calcium, Total, S 9.2 8.6 - 10.0 mg/dL 04/05/2019 9:28 AM [facility] CDT LABORATORIES [facility] Glucose, S 124 70 - 140 mg/dL 04/05/2019 9:28 AM [facility] CDT LABORATORIES [facility] Specimen Anatomical Collection Method Collection Time Receive d Time (Source) Location / / Volume Laterality Blood (Blood, 04/05/2019 8:07 AM 04/05/20 19 8:26 Venous) CDT AM CDT Clemente Aiken M.D. LAB BLOOD ADD-ON Performing Organization Address City/State/ZIP Code Phon e Number [facility] LABORATORIES - [address] [place] [address] [facility] CBC with Differential, Blood (04/05/2019 8:07 AM CDT) [facility] gist Method Time Signature Hemoglobin 12.9 11.6 - 04/05/2019 [facility] 15.0 g/dL 8:38 AM CDT LABORATORIES - [facility] Hematocrit 38.0 35.5 - 04/05/2019 [facility] 44.9 % 8:38 AM CDT LABORATORIES - [facility] Erythrocytes 3.94 3.92 - 04/05/2019 [facility] 5.13 8:38 AM CDT LABORATORIES - x10(12)/L [facility] MCV 96.4 78.2 - 04/05/2019 [facility] 97.9 fL 8:38 AM CDT LABORATORIES - [facility] RBC Distrib Width 13.2 12.2 - 04/05/2019 [facility] 16.1 % 8:38 AM CDT LABORATORIES - [facility] Platelet Count 226 157 - 371 04/05/2019 [facility] x10(9)/L 8:38 AM CDT LAB[facility]ATORIES - [facility] Leukocytes 5.5 3.4 - 9.6 04/05/2019 [facility] x10(9)/L 8:38 AM CDT LAB[facility]ATORIES - [facility] Neutrophils 3.00 1.56 - 04/05/2019 [facility] 6.45 8:38 AM CDT LABORATORIES - x10(9)/L [facility] Lymphocytes 1.84 0.95 - 04/05/2019 [facility] 3.07 8:38 AM CDT LABORATORIES - x10(9)/L [facility] Monocytes 0.37 0.26 - 04/05/2019 [facility] 0.81 8:38 AM CDT LABORATORIES - x10(9)/L [facility] Eosinophils 0.22 0.03 - 04/05/2019 [facility] 0.48 8:38 AM CDT LABORATORIES - x10(9)/L [facility] Basophils 0.05 0.01 - 04/05/2019 [facility] 0.08 8:38 AM CDT LABORATORIES - x10(9)/L [facility] Specimen Anatomical Collection Method Collection Time Receive d Time (Source) Location / / Volume Laterality Blood (Blood, 04/05/2019 8:07 AM 04/05/20 19 8:26 Venous) CDT AM CDT Clemente Aiken M.D. LAB BLOOD ADD-ON Performing Organization Address City/State/ZIP Code Phon e Number [facility] LABORATORIES - [address] [place], [place] [address] [facility] (ABNORMAL) Prothrombin Time (PT/INR) (04/05/2019 8:07 AM CDT) Patholo gist Method Time Signature Prothrombin 21.9 (H) 9.4 - 04/05/2019 [facility] Time, P 12.5 sec 8:44 AM CDT LABORATORIES - [facility] INR 2.0 0.9 - 1.1 04/05/2019 [facility] 8:44 AM CDT LABORATORIES [facility] Comment: ----ADDITIONAL INFORMATION---- Standard intensity warfarin therapeutic range: 2.0 to 3.0 ?? High intensity warfarin therapeutic rang e: 2.5 to 3.5 Specimen Anatomical Collection Method Collection Time Receive d Time (Source) Location / / Volume Laterality Blood (Blood, 04/05/2019 8:07 AM 04/05/20 19 8:26 Venous) CDT AM CDT Clemente Aiken M.D. LAB BLOOD ADD-ON Performing Organization Address City/State/ZIP Code Phon e Number [facility] LABORATORIES - [address] [place] [address] [facility] CT Head Neck Angiogram with [...] ly. Patulous esophagus containing fluid. Procedure Note oRbinson Chavez M.D. - 04/04/2019Formatti ng of this [...] P athologist Signature Heparin 0.81 IU/mL 04/04/2019 [facility] Anti-Xa, P 7:40 PM CDT LABORATORIES [facility] Comment: UFH therapeutic range: ?? 0.30-0.70 [...] LAB BLOOD NON ADD-ON Performing Organization Address City/[facility] Phon e Number [facility] LABORATORIES - 200 [place], [place] [address] [facility] (ABNORMAL) Prothrombin Time (PT/INR) (04/04/2019 5:25 PM CDT) [facility] gist Method Time Signature Prothrombin 20.1 (H) 9.4 - 04/04/2019 [facility] Time, P 12.5 sec 5:54 PM CDT LABORATORIES [facility] INR 1.8 0.9 - 1.1 04/04/2019 [facility] 5:54 PM CDT LABORATORIES - [facility] Comment: ----ADDITIONAL INFORMATION---- Standard intensity warfarin therapeutic range: 2.0 to 3.0 ?? High intensity warfarin therapeutic rang e: 2.5 to 3.5 Specimen Anatomical Collection Method Collection Time Receive d Time (Source) Location / / Volume Laterality Blood (Blood, 04/04/2019 5:25 PM 04/04/20 19 5:32 Venous) CDT PM CDT Clemente Aiken M.D. LAB BLOOD ADD-ON Performing Organization Address City/[facility] Phon e Number [facility] LABORATORIES - 200 [facility] [place] [address] [facility] (ABNORMAL) CBC with Differential, Blood (04/04/2019 5:25 PM CDT) [facility] Method Time Signature Hemoglobin 12.1 11.6 - 04/04/2019 [facility] 15.0 g/dL 5:35 PM CDT LABORATORIES - [facility] Hematocrit 36.3 35.5 - 04/04/2019 [facility] 44.9 % 5:35 PM CDT LABORATORIES - [facility] Erythrocytes 3.76 (L) 3.92 - 04/04/2019 [facility] 5.13 5:35 PM CDT LABORATORIES - x10(12)/L [facility] MCV 96.5 78.2 - 04/04/2019 [facility] 97.9 fL 5:35 PM CDT LABORATORIES - [facility] RBC Distrib 12.9 12.2 - 04/04/2019 [facility] Width 16.1 % 5:35 PM CDT LABORATORIES - [facility] Platelet Count 224 157 - 371 04/04/2019 [facility] x10(9)/L 5:35 PM CDT LABORATORIES - [facility] Leukocytes 4.6 3.4 - 9.6 04/04/2019 [facility] x10(9)/L 5:35 PM CDT LABORATORIES - [facility] Neutrophils 2.09 1.56 - 04/04/2019 [facility] 6.45 5:35 PM CDT LABORATORIES - x10(9)/L [facility] Lymphocytes 1.88 0.95 - 04/04/2019 [facility] 3.07 5:35 PM CDT LABORATORIES - x10(9)/L [facility] Monocytes 0.39 0.26 - 04/04/2019 [facility] 0.81 5:35 PM CDT LABORATORIES - x10(9)/L [facility] Eosinophils 0.18 0.03 - 04/04/2019 [facility] 0.48 5:35 PM CDT LABORATORIES - x10(9)/L [facility] Basophils 0.04 0.01 - 04/04/2019 [facility] 0.08 5:35 PM CDT LABORATORIES - x10(9)/L [facility] Specimen Anatomical Collection Method Collection Time Receive d Time (Source) Location / / Volume Laterality Blood (Blood, 04/04/2019 5:25 PM 04/04/20 19 5:32 Venous) CDT PM CDT Clemente Aiken M.D. LAB BLOOD ADD-ON Performing Organization Address City/[facility]/ZIP Code Phon e Number [facility] LABORATORIES - [address] [place], [place] [address] [facility] (ABNORMAL) APTT (Activated Partial Thromboplastin Time) (04/04/2019 5:25 PM CDT) Analysis Performed At Patho logist Time Signature Activated 44 (H) 25 - 37 04/04/2019 [facility] Partial sec 5:57 PM CDT [facility] Specimen Anatomical Collection Method Collection Time Receive d Time (Source) Location / / Volume Laterality Blood (Blood, 04/04/2019 5:25 PM 04/04/20 19 5:32 Venous) CDT PM CDT Clemente Aiken M.D. LAB BLOOD ADD-ON Performing Organization Address City/[facility]/ZIP Code Phon e Number [facility] LABORATORIES - [address] [place], [place] [address] [facility] Magnesium (04/04/2019 5:25 PM CDT) P athologist Signature Magnesium, S 2.3 1.7 - 2.3 04/04/2019 [facility] mg/dL 6:21 PM CDT [facility] - [facility] Specimen Anatomical Collection Method Collection Time Receive d Time (Source) Location / / Volume Laterality Blood (Blood, 04/04/2019 5:25 PM 04/04/20 19 5:40 Venous) CDT PM CDT Clemente Aiken M.D. LAB BLOOD ADD-ON Performing Organization Address City/[facility]/ZIP Code Phon e Number [facility] LABORATORIES - [address] [place] [address] [facility] Phosphorus Inorganic (04/04/2019 5:25 PM CDT) Analysis Performed At Patho logist Time Signature Phosphorus 3.8 2.5 - 4.5 04/04/2019 [facility] (Inorganic), S mg/dL 6:21 PM CDT [facility] Specimen Anatomical Collection Method Collection Time Receive d Time (Source) Location / / Volume Laterality Blood (Blood, 04/04/2019 5:25 PM 04/04/20 19 5:40 Venous) CDT PM CDT Clemente Aiken M.D. LAB BLOOD ADD-ON Performing Organization Address City/State/ZIP Code Phon e Number [facility] LABORATORIES - [address] [place], [place] [address] [facility] (ABNORMAL) Comprehensive Metabolic Panel (04/04/2019 5:25 PM CDT) [facility] Method Time Signature Potassium, S 3.5 (L) 3.6 - 5.2 04/04/2019 [facility] mmol/L 6:21 PM CDT LABORATORIES - [facility] Sodium, S 141 135 - 145 04/04/2019 [facility] mmol/L 6:21 PM CDT LABORATORIES - [facility] Chloride, S 105 98 - 107 04/04/2019 [facility] mmol/L 6:21 PM CDT LABORATORIES - [facility] Bicarbonate, S 23 22 - 29 04/04/2019 [facility] mmol/L 6:21 CDT LABORATORIES - [facility] Anion Gap 13 7 - 15 04/04/2019 [facility] 6:21 PM CDT LABORATORIES - [facility] BUN (Blood Urea 20 6 - 21 04/04/2019 [facility] Nitrogen), S mg/dL 6:21 PM CDT LABORATORIES - [facility] Creatinine 0.90 0.59 - 04/04/2019 [facility] 1.04 6:21 CDT LABORATORIES - mg/dL [facility] eGFR-Non 72 >=60 04/04/2019 [facility] Black/ mL/min/BS 6:21 CDT LABORATORIES - [place] [facility] Comment: ----ADDITIONAL INFORMATION---- Estimated GFR calculated using the 2009 CKD_EPI creatinine equation. eGFR-Black/ 83 >=60 mL/min/BSA 04/04/2019 6:21 [facility] Haitian CDT LABORATORIES - [facility] Comment: ----ADDITIONAL INFORMATION---- Estimated GFR calculated using the 2009 CKD_EPI creatinine equation. Calcium, Total, S 8.6 8.6 - 10.0 04/04/2019 6:21 [facility] mg/dL CDT LABORATORIES - [facility] Glucose, S 96 70 - 140 04/04/2019 6:21 [facility] mg/dL PM CDT LABORATORIES - [facility] Protein, Total, S 6.2 (L) 6.3 - 7.9 04/04/2019 6:21 [facility] g/dL PM CDT LABORATORIES - [facility] Albumin, S 4.1 3.5 - 5.0 04/04/2019 6:21 [facility] g/dL PM CDT LABORATORIES - [facility] Aspartate 21 8 - 43 U/L 04/04/2019 6:21 [facility] Aminotransferase (AST), PM CDT LABORA TORIES - S [facility] Alkaline Phosphatase, S 73 35 - 104 U/L 04/04/2019 6: 21 [facility] PM CDT LABORATORIES - [facility] Alanine Aminotransferase 14 7 - 45 U/L 04/04/2019 6:2 1 [facility] (ALT), S PM CDT LABORATORIES - [facility] Bilirubin, Total, S 0.2 <=1.2 mg/dL 04/04/2019 6:21 [facility] PM CDT LABORATORIES - [facility] Specimen Anatomical Collection Method Collection Time Receive d Time (Source) Location / / Volume Laterality Blood (Blood, 04/04/2019 5:25 PM 04/04/20 19 5:40 Venous) CDT PM CDT Clemente Aiken M.D. LAB BLOOD ADD-ON Performing Organization Address City/State/ZIP Code Phon e Number [facility] LABORATORIES - [address] [place], [place] [address] [facility] documented in this encounter Visit [...] 04/04/2019 04/05/2019 acetaminophen tablet 1,000 mg (TYLENOL) 2069 (Given - Provider: Dia Stafford RBetsy)1407 (Given [...] Kiara Curry R.N., CRN - Comment: LOT# [id number]) 1-200 mL, intravenous, Once in imaging, contrast, [...]
--- OUTSIDE RECORDS SUMMARY | 2022-08-17 07:03 | XMS_ITS | Encounter Summary ---
:1965 Author Organization [facility] Address [address] [place] [address] Care Team Providers Name Role Phone Unavailable Primary Care Provider Unavailable Encounter Details Date Type Department Care Team Description 10/02/2019 Orders Only Department of Robert Diehl Thrombosi s Arterial Neurology in [place] ([facility]) (Primary Dx) [place], [place] [address] [place] [address] 200 [place] [id number] Social History Tobacco Use Types Packs/Day Years [...] you attend gnosticism or Patient refused 2021 gnosticist services? Do [...] Appointment Radiology Alfredo Herrera O.P.A.-C. [address] [place] [address] 09/06/2022 Office Visit Orthopedic Surgery Cyrus Polk M.D. [address] [place] [address] documented as of this encounter Results Interpretation of Outside MR Neck (10/02/2019 1:01 PM IMPLEMENTATION MANAGER) Anatomical Region Laterality Modality Neuroradiology RST LOS, Neuroradiology ARZ LOS, N/A Magnetic Resonance Neuroradiology FLA LOS, Neck Specimen (Source) Anatomical Collection Method Collection Time Re ceived Time Location / / Volume Laterality 10/02/2019 1:03 PM IMPLEMENTATION MANAGER Impressions 10/02/2019 1:18 PM IMPLEMENTATION MANAGER Similar appearance of the distal right vertebral artery irregularity and mild narrowing at C1, r elated to the nonocclusive luminal thrombus, as seen on the prior CTA exams . MRA neck otherwise negative and unchanged. Narrative 10/02/2019 1:18 PM IMPLEMENTATION MANAGER EXAM: ??INTERPRETATION OF OUTSIDE MR NECK [...]
--- OUTSIDE RECORDS SUMMARY | 2022-08-17 07:03 | XMS_ITS | Encounter Summary ---
:1965 Author Organization [facility] Address [address] [place] [address] Care Team Providers Name Role Phone Unavailable [...] in L, MBrittonDBritton done closer to home [place], [facility] before appt [place], [place] ([facility]) [address] [facility] [phone] [place], [place] [phone] (Work) [phone] Social History Tobacco Use Types Packs/Day Years [...] you attend orthodox or Patient refused 2021 religion services? Do [...] for MRA faxed to Dr. Blackwell at [facility] at fax [phone]. Called the patient and left a message [...] like to have her MRI done at [facility]'s before her appointment with Dr. Diehl on 09/19. Or if she could get her MRI scheduled for the same day as she is here for her appointment. She doesn't want to drive 2 days in a row. She wanted the order sent to Dr. Blackwell so I guess just send notes to Dr. Clemente Blackwell at [facility] Phone- [phone] documented in this encounter Plan of Treatment Upcoming Encounters Date Type Specialty Care Team Description 09/01/2022 Clinical Communication Admitting/Central Scheduling 09/06/2022 Appointment Radiology Alfredo Herrera O.P.A.-C. [address] [place] [address] 09/06/2022 Office Visit Orthopedic Surgery Cyrus Polk M.D. [address] [place] [address] documented as of this encounter Visit Diagnoses Not on filedocumented in this encounter Additional Health Concerns Assessment Noted Time PHQ-9 Depression Total Score: 5 04/05/2019 8:00 AM CDT documented as of this encounter
--- OUTSIDE RECORDS SUMMARY | 2022-08-17 07:03 | XMS_ITS | Encounter Summary ---
:1965 Author Organization [facility] Address [address] [place] [address] Care Team Providers Name Role Phone Unavailable Primary Care Provider Unavailable Reason for Visit Reason Onset Date Comments Schedule Surgery 10/05/2019 Encounter Details Date Type Department Care Team Description 10/05/2019 Clinical Department of [place], Schedule Surge ry Communication Otorhinolaryngology in [place], [place] 200 [facility] [address] [place] [phone] [place] [address] Social History Tobacco Use Types Packs/Day Years [...] you attend mosque or Patient refused 2021 rastafari services? Do [...] Kaykay Murphy R.N. - 10/17/2019 8:10 AM CONSULTING ACTUARY Pt has return appt with EKO on 10/23 [facility] Telephone Encounter - Alana Engel L.P.NBritton - 10/09/2019 2:49 PM CST Note sent to DR. Olmedo and patient's Neurology team to discuss clearance for surgery. Desk is scheduling a return for the patient ot discuss surgery. [facility] Telephone Encounter - Alana Engel L.P.N. - [...] following references were used: provider Dr. Olmedo [facility] Telephone Encounter - Zoey Lipscomb - 10/05/2019 [...] surgical date. She can be reached at [phone]. [facility] documented in this encounter Plan of Treatment Upcoming Encounters Date Type Specialty Care Team Description 09/01/2022 Clinical Communication Admitting/Central Scheduling 09/06/2022 Appointment Radiology Alfredo Hrerera O.P.A.-C. [address] [place] [address] 09/06/2022 Office Visit Orthopedic Surgery Cyrus Polk M.D. [address] [place] [address] documented as of this encounter Visit Diagnoses Not on filedocumented in this encounter Additional Health Concerns Assessment Noted Time PHQ-9 Depression Total Score: 5 04/05/2019 8:00 AM CDT documented as of this encounter
--- OUTSIDE RECORDS SUMMARY | 2022-08-17 07:03 | XMS_ITS | Encounter Summary ---
:1965 Author Organization [facility] Address [address] [place] [address] Care Team Providers Name Role Phone Unavailable Primary Care Provider Unavailable Reason for Referral Outpatient (Routine) - Closed Specialty Diagnoses / Procedures Referred By Contact Refer red To Contact Neurology Robert Diehl M. D. [facility] [address] [place] [address] [phone] Referral ID Status Reason Start Date Expiration Date Visits Requ ested Visits Authorized [id number] Closed 06/28/2019 06/27/2020 1 1 Reason for Visit Outpatient (Routine) - Closed Specialty Diagnoses / Procedures Referred By Contact Refer red To Contact Neurology Diagnoses Stroke (HCC) Thrombosis Arterial (HCC) Aneurysm Cerebral Unruptured (HCC) Fernie Soriano M.D. [facility] [address] [place] [address] [phone] Referral ID Status Reason Start Date Expiration Date Visits Requ ested Visits Authorized [id number] Closed 03/31/2019 03/30/2020 1 1 Encounter Details Date Type Department Care Team Description 06/28/2019 Office Visit Department of Robert Diehl Fatigue ( Primary Dx); Neurology in [place] Stroke (HCC); [place], [place] 200 [facility] Thrombosis Arterial (HCC); [address] [place] [address] Aneurysm Cerebral Unruptured ([place]) [place] [phone] Social History Tobacco Use Types Packs/Day Years [...] you attend taoism or Patient refused 2021 mosque services? Do [...] Fatigue PUL Home Overnight Oximetry 2. Stroke ([facility]) Neurology - Cerebrovascular consult (clinic) MR Neck Angiogram without and with IV Contrast PM Device interrogation (clinic) 3. Thrombosis Arterial ([facility]) Neurology - Cerebrovascular consult (clinic) MR Neck Angiogram without and with IV Contrast PM Device interrogation (clinic) 4. Aneurysm Cerebral Unruptured ([facility]) Neurology - Cerebrovascular consult (clinic) documented in this encounter Plan of Treatment Upcoming Encounters Date Type Specialty Care Team Description 09/01/2022 Clinical Communication Admitting/Central Scheduling 09/06/2022 Appointment Radiology Alfredo Herrera O.P.A.-C. [address] [place] [phone] 09/06/2022 Office Visit Orthopedic Surgery Cyrus Polk M.D. [address] [place] [address] Scheduled Orders Name Type Priority Associated Diagnoses [...]
--- OUTSIDE RECORDS SUMMARY | 2022-08-17 07:03 | XMS_ITS | Encounter Summary ---
:1965 Author Organization [facility] Address [address] [place] [address] Care Team Providers Name Role Phone Unavailable Primary Care Provider Unavailable Reason for Visit Reason Onset Date Comments Nicotine Dependence 09/04/2019 Encounter Details Date Type Department Care Team Description 09/04/2019 Clinical Department of Tesfaye Ortega, Nicotine Janet grady Communication Nicotine Kenna D, Dependence, Jordy Alex, [facility] in [place], [place] [address] [place] [address] Social History Tobacco Use Types Packs/Day Years [...] you attend advent or Patient refused 2021 episcopal services? Do [...] Appointment Radiology Alfredo Herrera O.P.A.-C. [address] [place] [address] 09/06/2022 Office Visit Orthopedic Surgery Cyrus Polk M.D. [address] [place] [address] documented as of this encounter Visit Diagnoses Not on filedocumented in this encounter Additional Health Concerns Assessment Noted Time PHQ-9 Depression Total Score: 5 04/05/2019 8:00 AM CDT documented as of this encounter
--- OUTSIDE RECORDS SUMMARY | 2022-08-17 07:03 | XMS_ITS | Encounter Summary ---
:1965 Author Organization [facility] Address [address] [place] [address] Care Team Providers Name Role Phone Unavailable Primary Care Provider Unavailable Encounter Details Date Type Department Care Team Description 06/28/2019 Hospital Encounter Department of Fernie Soriano Stroke ([facility]); Radiology, Jordy Alvarado M.D. Thrombosis Arterial ([facility]); Building, in [address] [place] [address] Aneurysm Cerebral Unruptured ([facility]) [place], [place] [address] [place] [address] [place], [place] [phone] (Work) [phone] Social History Tobacco Use Types Packs/Day Years [...] Appointment Radiology Alfredo Herrera O.P.A.-C. [address] [place] [phone] 09/06/2022 Office Visit Orthopedic Surgery Cyrus Polk M.D. [address] [place] [phone] documented as of this encounter Procedures Procedure [...] the ventral aspect (series 6 image s [id number]). The lumen remains significantly irregular and there [...] well seen. The RADHA, MCA, a nd LEAD CONSULTANT branches are unremarkable in appearance. Stable postoperative [...] the ventral aspect (series 6 image s [id number]). The lumen remains significantly irregular and there [...] well seen. The RADHA, MCA, a nd LEAD CONSULTANT branches are unremarkable in appearance. Stable postoperative [...]
--- OUTSIDE RECORDS SUMMARY | 2022-08-17 07:03 | XMS_ITS | Encounter Summary ---
:1965 Author Organization [facility] Address [address] [place] [address] Care Team Providers Name Role Phone Unavailable Primary Care Provider Unavailable Reason for Visit Outpatient (Routine) - Closed Specialty Diagnoses / Procedures Referred By Contact Refer red To Contact Otorhinolaryngology Jey Santana M.D. [facility] [address] [place] [phone] Referral ID Status Reason Start Date Expiration Date Visits Requ ested Visits Authorized [id number] Closed 11/08/2019 11/07/2020 1 1 Encounter Details Date Type Department Care Team Description 11/29/2019 Office Visit Department of Darlin Olmedo Mucocele Nasa l Sinus Otorhinolaryngology jimmy Brumfield M.D. (Primary Dx) [address] [place] [phone] Social History Tobacco Use Types Packs/Day Years [...] you attend alevism or Patient refused 2021 rastafarian services? Do you belong to any clubs or No 05/17/2022 organizations such as alevism groups, unions, fraShopSpot or athletic groups, or school groups? How [...] Previous sinus surgery: sinus surgery X2 in [place] and X2 at [place] per patient; mucocele notedby left eye on [...] Crusting Mild = 1 Mild = 1 [facility] Score = 2 ASSESSMENT / PLAN [...] if this occurs we will identify another oracle bpm consultant surgeon to supervise other team members to safely and seamlessly complete the procedure. Signed consent was obtained today. Patient was seen and examined today in conjunction with Dr. Darlin Olmedo ([phone]). E ERECTOR SUPERVISOR Associated attestation - Darlin Olmedo M.D. - 11/30/2019 10:43 AM FENCE ERECTOR SUPERVISOR I was the supervising physician in the delivery of the service. I saw the patient with Krista Casey APRN, MACHINE HEEL SEAT FITTER, MSN and agree with her history, Assessment [...] Appointment Radiology Alfredo Herrera O.P.A.-C. [address] [place] [address] 09/06/2022 Office Visit Orthopedic Surgery Cyrus Polk M.D. [address] [place] [address] documented as of this encounter Visit Diagnoses Diagnosis Mucocele Nasal Sinus - Primary documented in this encounter Additional Health Concerns Assessment Noted Time PHQ-9 Depression Total Score: 5 04/05/2019 8:00 AM CDT documented as of this encounter
--- OUTSIDE RECORDS SUMMARY | 2022-08-17 07:03 | XMS_ITS | Encounter Summary ---
:1965 Author Organization [facility] Address [address] [place] [address] Care Team Providers Name Role Phone Unavailable Primary Care Provider Unavailable Reason for Visit Reason Onset Date Comments Patient wants letter and notes sent to physician in 10/03/[address] Robert Diehl [facility] Encounter Details Date Type Department Care Team Description 10/03/2019 Clinical Communication Department of Robert Diehl Neurology in [place], M.DBritton letter and notes [address] sent to physician [place], [place] in [facility] ( [address] [place] [phone] Robert Diehl) [place], [place] [phone] (Work) [phone] Social History Tobacco Use Types Packs/Day Years [...] attend jehovah's witness or Patient refused 2021 pentecostalism services? Do [...] 3:55 PM CST As per documentation in [facility] on 09/04, a letter has been sent to Dr. Blackwell with the patient's notes from her most recent visit. E ERECTOR documented in this encounter Plan of Treatment Upcoming Encounters Date Type Specialty Care Team Description 09/01/2022 Clinical Communication Admitting/Central Scheduling 09/06/2022 Appointment Radiology Alfredo Herrera O.P.A.-C. [address] [place] [address] 09/06/2022 Office Visit Orthopedic Surgery Cyrus Polk M.D. [address] [place] [phone] documented as of this encounter Visit Diagnoses Not on filedocumented in this encounter Additional Health Concerns Assessment Noted Time PHQ-9 Depression Total Score: 5 04/05/2019 8:00 AM CDT documented as of this encounter
--- OUTSIDE RECORDS SUMMARY | 2022-08-17 07:03 | XMS_ITS | Encounter Summary ---
:1965 Author Organization [facility] Address [address] [place] [address] Care Team Providers Name Role Phone Unavailable Primary Care Provider Unavailable Reason for Referral Outpatient (Routine) - Closed Specialty Diagnoses / Procedures Referred By Contact Refer herson To Contact General Surgery Diagnoses Rhinosinusitis Chronic Jey Gomez M.D. [address] [phone] Referral ID Status Reason Start Date Expiration Date Visits Requ ested Visits Authorized [id number] Closed 11/08/2019 11/07/2020 1 1 utpatient (Routine) - Closed Specialty Diagnoses / Procedures Referred By Contact Clyde bains To Contact Otorhinolaryngology Jey Gomez M.D. [address] [phone] Referral ID Status Reason Start Date Expiration Date Visits Requ ested Visits Authorized [id number] Closed 11/08/2019 11/07/2020 1 1 Scheduling Instructions EKO listing visit and NESHA 11/29/2019 TYPE MECHANIC Reason for Visit Reason Onset Date Comments reschedule surgery 11/07/2019 Patient was a no sydni w for surgery with Dr. Olmedo on 11/05/19. Encounter Details Date Type Department Care Team Description 11/07/2019 Clinical Department of shawna Olmedo Communication Otorhinolaryngology in Darlin Brumfield, surg silva (Patient [place], [place] M.D. was a no show for [address] [place]. [place], [place] [phone] SHAHANA Brule on [phone] [place], 11/05/19.) [place] [phone] Social History Tobacco Use Types Packs/Day Years [...] Tanvi White R.N. - 11/09/2019 10:02 AM LINOTYPE MECHANIC Patient called to let her know of the preoperative appointments and listing appointment with Dr. Darlin Olmedo. She was also informed that she does not have to stop the aspirin 81 mg for surgery. She verbalized understanding regarding the use of aspirin and was appreciative of the call. TYPE MECHANIC Telephone Encounter - Jey Gomez M.D. - 11/08/2019 5:00 PM CST Kosta Wu I placed the NESHA, listing visit, and created the listing. She can stay on her 81 ASA. Thank you. TYPE MECHANIC Addendum Note - Jey Gomez M.D. - 11/08/2019 4:59 PM LINOTYPE MECHANIC Addended by: JEY GOMEZ on: 11/08/2019 04:59 PM Modules accepted: Orders TYPE MECHANIC Telephone Encounter - Tanvi White R.N. - 11/08/2019 10:59 AM LINOTYPE MECHANIC SUBJECTIVE CHIEF COMPLAINT / REASON FOR CALL [...] surgical date. She will require a class c truck driver and that plan will work better for her. Disposition/Recommendation: Patient is aware that she will need to call in the night before surgeryfor a report time to [facility]. Information/Education: patient/caller able to teach back Caller agreeable to plan of care: yes The following references were used: nursing clinical judgement TYPE MECHANIC Telephone Encounter - Darlin Olmedo M.D. - 11/08/2019 10:16 AM CST Any of those days are fine. I should see her for a listing visit and NESHA. thanks TYPE MECHANIC Telephone Encounter - Tanvi White R.N. - 11/07/2019 1:34 PM LINOTYPE MECHANIC SUBJECTIVE CHIEF COMPLAINT / REASON FOR CALL [...] following references were used: nursing clinical judgement TYPE MECHANIC documented in this encounter Plan of Treatment Upcoming Encounters Date Type Specialty Care Team Description 09/01/2022 Clinical Communication Admitting/Central Scheduling 09/06/2022 Appointment Radiology Alfredo Herrera O.P.A.-C. [address] [place] [phone] 09/06/2022 Office Visit Orthopedic Surgery Cyrus Polk M.D. [address] [place] [phone] Scheduled Referrals Name Type Priority Associated Diagnoses Order S chedule Otorhinolaryngology office Outpatient Routine E xpected: visit (clinic) Referral 11/29/2019, Expires: 11/08/2022 Preoperative Evaluation Outpatient Routine Rhinosinusitis Ex pected: NESHA consult (clinic) Referral Chronic 020 (Approximate), Expires: 11/08/2022 documented as of this encounter Results (ABNORMAL) CBC without Differential (11/29/2019 11:30 AM LINOTYPE MECHANIC) [facility] gist Method Time Signature Hemoglobin 13.3 11.6 - 11/29/2019 DTL 15.0 g/dL 12:09 PM LINOTYPE MECHANIC Hematocrit 40.6 35.5 - 11/29/2019 DTL 44.9 % 12:09 PM LINOTYPE MECHANIC Erythrocytes 4.08 3.92 - 11/29/2019 DTL 5.13 12:09 PM LINOTYPE MECHANIC x10(12)/L MCV 99.5 (H) 78.2 - 11/29/2019 DTL 97.9 fL 12:09 PM LINOTYPE MECHANIC RBC Distrib Width 13.3 12.2 - 11/29/2019 DTL 16.1 % 12:09 PM LINOTYPE MECHANIC Platelet Count 234 157 - 371 11/29/2019 DTL x10(9)/L 12:09 PM LINOTYPE MECHANIC Leukocytes 5.8 3.4 - 9.6 11/29/2019 DTL x10(9)/L 12:09 PM LINOTYPE MECHANIC Specimen Anatomical Collection Method Collection Time Receive d Time (Source) Location / / Volume Laterality Blood (Blood, 11/29/2019 11:30 11/29/2019 Venous) AM LINOTYPE MECHANIC 11:50 AM LINOTYPE MECHANIC Jey Gomez M.D. LAB BLOOD ADD-ON Performing Organization Address City/State/ZIP Code Phon e Number [facility] - 200 [place], [place] [address] [facility] [place] [address] [facility] 200 [facility] documented in this encounter Visit Diagnoses Diagnosis Rhinosinusitis Chronic - Primary documented in this encounter Additional Health Concerns Assessment Noted Time PHQ-9 Depression Total Score: 5 04/05/2019 8:00 AM CDT documented as of this encounter
--- OUTSIDE RECORDS SUMMARY | 2022-08-17 07:03 | XMS_ITS | Encounter Summary ---
:1965 Author Organization [facility] Address [address] [place] [address] Care Team Providers Name Role Phone Unavailable Primary Care Provider Unavailable Reason for Visit Reason Onset Date Comments Nicotine Dependence 04/26/2019 Encounter Details Date Type Department Care Team Description 04/26/2019 Clinical Department of Tesfaye Ortega, Nicotine Janet grady Communication Nicotine Kenna D, Dependence, Jordy Alex, [facility], in [place], [place] [address] [place] [address] Social History Tobacco Use Types Packs/Day Years [...] Appointment Radiology Alfredo Herrera O.P.A.-C. [address] [place] [address] 09/06/2022 Office Visit Orthopedic Surgery Cyrus Polk M.D. [address] [place] [address] documented as of this encounter Visit Diagnoses Not on filedocumented in this encounter Additional Health Concerns Assessment Noted Time PHQ-9 Depression Total Score: 5 04/05/2019 8:00 AM CDT documented as of this encounter
--- OUTSIDE RECORDS SUMMARY | 2022-08-17 07:03 | XMS_ITS | Encounter Summary ---
:1965 Author Organization [facility] Address [address] [place] [address] Care Team Providers Name Role Phone Unavailable Primary Care Provider Unavailable Reason for Visit Reason Onset Date Comments Telephone call 04/24/2019 [place] Encounter Details Date Type Department Care Team Description 04/24/2019 Clinical Communication Department of Blanca, Tele phone call Neurology in Nan Bose M.D. (Blanca) [place], [facility] [place], [place] [address] [place] [address] [place], [place] [phone] (Work) [phone] Social History Tobacco Use Types Packs/Day Years [...] you attend gnosticism or Patient refused 2021 mosque services? Do [...] The patient contacted Dr. Henry's office at [facility] for a PFO closure. Depending on your answer would decide if the patient was a candidate for PFO closure. They read your 04/04/18 hospital summary in [facility], but the answer is unclear. Their fax is [phone]. thanks documented in this encounter Plan of Treatment Upcoming Encounters Date Type Specialty Care Team Description 09/01/2022 Clinical Communication Admitting/Central Scheduling 09/06/2022 Appointment Radiology Alfredo Herrera O.P.A.-C. [address] [place] [address] 09/06/2022 Office Visit Orthopedic Surgery Cyrus Polk M.D. [address] [place] [address] documented as of this encounter Visit Diagnoses Not on filedocumented in this encounter Additional Health Concerns Assessment Noted Time PHQ-9 Depression Total Score: 5 04/05/2019 8:00 AM CDT documented as of this encounter
--- OUTSIDE RECORDS SUMMARY | 2022-08-17 07:03 | XMS_ITS | Encounter Summary ---
:1965 Author Organization [facility] Address [address] [place] [address] Care Team Providers Name Role Phone Unavailable Primary Care Provider Unavailable Reason for Visit Reason Onset Date Comments MRI from [facility] 10/02/2019 Dr. Diehl Encounter Details Date Type Department Care Team Description 10/02/2019 Clinical Communication Department of Robert Diehl MR [facility] from [facility] (Dr. Bullock, 200 [facility]) [place], [place] [address] [place] [phone] [place], [place] [phone] (Work) [phone] Social History Tobacco Use Types Packs/Day Years [...] you attend gnosticism or Patient refused 2021 rastafari services? Do [...] I talked with the radiology film room ([facility]) at [facility]. They have pushed the MRI and it should be here soon. UTER ENGINEERING TECHNOLOGIST documented in this encounter Plan of Treatment Upcoming Encounters Date Type Specialty Care Team Description 09/01/2022 Clinical Communication Admitting/Central Scheduling 09/06/2022 Appointment Radiology Alfredo Herrera O.P.A.-C. [address] [place] [address] 09/06/2022 Office Visit Orthopedic Surgery Cyrus Polk M.D. [address] [place] [address] documented as of this encounter Visit Diagnoses Not on filedocumented in this encounter Additional Health Concerns Assessment Noted Time PHQ-9 Depression Total Score: 5 04/05/2019 8:00 AM CDT documented as of this encounter
--- OUTSIDE RECORDS SUMMARY | 2022-08-17 07:03 | XMS_ITS | Encounter Summary ---
:1965 Author Organization [facility] Address [address] [place] [address] Care Team Providers Name Role Phone Unavailable Primary Care Provider Unavailable Encounter Details Date Type Department Care Team Description 10/03/2019 Clinical Communication Department of Robert Diehl, Neurology in .. [place], [place] 200 [facility] 200 [place] [phone] Social History Tobacco Use Types Packs/Day Years [...] you attend presybeterian or Patient refused 2021 christian services? Do [...] Coby this is for you, records request T FEEDER Telephone Encounter - Janis Preston R.N. - 10/03/2019 3:11 PM CST Called patient back with update about aspirin per Dr. Diehl. Patient voiced understanding that she will stop the warfarin and continue baby aspirin. She wants notes about her visit sent to her DrBrittonin Dryden. Janis Preston R.N. T FEEDER Telephone Encounter - Janis Preston R.N. - [...] dose and warfarin discontinuation. Janis Preston R.N. T FEEDER documented in this encounter Plan of Treatment Upcoming Encounters Date Type Specialty Care Team Description 09/01/2022 Clinical Communication Admitting/Central Scheduling 09/06/2022 Appointment Radiology Alfredo Herrera O.P.A.-C. [address] [place] [address] 09/06/2022 Office Visit Orthopedic Surgery Cyrus Polk M.D. [address] [place] [address] documented as of this encounter Visit Diagnoses Not on filedocumented in this encounter Additional Health Concerns Assessment Noted Time PHQ-9 Depression Total Score: 5 04/05/2019 8:00 AM CDT documented as of this encounter
--- OUTSIDE RECORDS SUMMARY | 2022-08-17 07:03 | XMS_ITS | Encounter Summary ---
:1965 Author Organization [facility] Address [address] [place] [address] Care Team Providers Name Role Phone Unavailable Primary Care Provider Unavailable Reason for Visit Outpatient (Routine) - Closed Specialty Diagnoses / Procedures Referred By Contact Refer red To Contact Neurology Robert Diehl M. D. [facility] [address] [place] [phone] Referral ID Status Reason Start Date Expiration Date Visits Requ ested Visits Authorized [id number] Closed 06/28/2019 06/27/2020 1 1 Encounter Details Date Type Department Care Team Description 10/02/2019 Office Visit Department of Robert Diehl, Stroke (H CC) (Primary Dx); Neurology in M.D. Thrombosis Arterial (HCC) [place], [place] [address] [place] [address] [place] [phone] Social History Tobacco Use Types Packs/Day Years [...] you attend jew or Patient refused 2021 holiness services? Do you belong to any clubs or No 05/17/2022 organizations such as jew groups, unions, fracollegefeed or athletic groups, or school groups? How [...] of a magnetic resonance angiogram completed at [facility]. Unfortunately we do not have the images [...] 1. Stroke (HCC) 2. Thrombosis Arterial (HCC) [place] SALES MANAGER documented in this encounter Plan of Treatment Upcoming Encounters Date Type Specialty Care Team Description 09/01/2022 Clinical Communication Admitting/Central Scheduling 09/06/2022 Appointment Radiology Alfredo Herrera O.P.A.-C. [address] [place] [address] 09/06/2022 Office Visit Orthopedic Surgery Cyrus Polk M.D. [address] [place] [address] documented as of this encounter Visit Diagnoses Diagnosis Stroke (HCC) - Primary Thrombosis Arterial (HCC) documented in this encounter Additional Health Concerns Assessment Noted Time PHQ-9 Depression Total Score: 5 04/05/2019 8:00 AM CDT documented as of this encounter
--- OUTSIDE RECORDS SUMMARY | 2022-08-17 07:03 | XMS_ITS | Encounter Summary ---
:1965 Author Organization [facility] Address [address] [place] [address] Care Team Providers Name Role Phone Unavailable Primary Care Provider Unavailable Reason for Visit Reason Onset Date Comments Nicotine Dependence 08/30/2019 Encounter Details Date Type Department Care Team Description 08/30/2019 Clinical Department of Tesfaye Ortega, Nicotine Janet grady Communication Nicotine Kenna D, Dependence, Jordy Alex, [facility] in [place], [place] [address] [place] [address] Social History Tobacco Use Types Packs/Day Years [...] you attend hoahaoism or Patient refused 2021 episcopalian services? Do [...] Appointment Radiology Alfredo Herrera O.P.A.-C. [address] [place] [address] 09/06/2022 Office Visit Orthopedic Surgery Cyrus Polk M.D. [address] [place] [address] documented as of this encounter Visit Diagnoses Not on filedocumented in this encounter Additional Health Concerns Assessment Noted Time PHQ-9 Depression Total Score: 5 04/05/2019 8:00 AM CDT documented as of this encounter
--- OUTSIDE RECORDS SUMMARY | 2022-08-17 07:04 | XMS_ITS | Encounter Summary ---
:1965 Author Organization [facility] Address [address] [place] [address] Care Team Providers Name Role Phone Unavailable [...] attend latter day or Patient refused 2021 christian services? Do [...] Appointment Radiology Alfredo Herrera O.P.A.-C. [address] [place] [address] 09/06/2022 Office Visit Orthopedic Surgery Cyrus Polk M.D. [address] [place] [address] documented as of this encounter Procedures Procedure [...] and Lateral 2 Views (08/16/2008 2:53 PM [facility]) Anatomical Region Laterality Modality Chest, Thoracic RST LOS N/A Radiographic Xi ging Specimen (Source) Anatomical Collection Method Collection Time Re ceived Time Location / / Volume Laterality 08/16/2008 2:53 PM [facility] Narrative 08/16/2008 3:27 PM [facility] Indications: ?CHEST PAIN tech: Pt stated nipple [...] with rhythm strip (08/16/2008 12:00 AM [facility]) Specimen (Source) Anatomical Location Collection Method / Collectio n Time Received Time / Laterality Volume 08/16/2008 Historical Provider ECG ORDERABLES Performing Organization Address City/State/ZIP Code Phon e Number HX [place] CONVERSION documented in this encounter Visit Diagnoses Not on filedocumented in this encounter
--- OUTSIDE RECORDS SUMMARY | 2022-08-17 07:04 | XMS_ITS | Encounter Summary ---
:1965 Author Organization [facility] Address [address] [place] [address] Care Team Providers Name Role Phone Unavailable Primary Care Provider Unavailable Reason for Visit Reason Onset Date Comments [facility] Med Request 03/30/2019 Encounter Details Date Type Department Care Team Description 03/30/2019 Clinical Communication [facility] Med Request Nicotine Kenna Bose M.S., Dependence, C.T.T.S. [facility] in [place], [place] [address] [place] [address] Social History Tobacco Use Types Packs/Day Years [...] the following to the [facility] 1) 14 mg patch 2) Varenicline (please include starter pack and continued pack) 3) inhaler documented in this encounter Plan of Treatment Upcoming Encounters Date Type Specialty Care Team Description 09/01/2022 Clinical Communication Admitting/Central Scheduling 09/06/2022 Appointment Radiology Alfredo Herrera O.P.A.-C. [address] [place] [address] 09/06/2022 Office Visit Orthopedic Surgery Cyrus Polk M.D. [address] [place] [address] documented as of this encounter Visit Diagnoses Not on filedocumented in this encounter Additional Health Concerns Assessment Noted Time PHQ-9 Depression Total Score: 13 03/30/2019 1:48 PM CD T documented as of this encounter
--- OUTSIDE RECORDS SUMMARY | 2022-08-17 07:04 | XMS_ITS | Encounter Summary ---
:1965 Author Organization [facility] Address [address] [place] [address] Care Team Providers Name Role Phone Unavailable [...] you attend voodoo or Patient refused 2021 judaism services? Do [...] Appointment Radiology Alfredo Herrera O.P.A.-C. [address] [place] [address] 09/06/2022 Office Visit Orthopedic Surgery Cyrus Polk M.D. [address] [place] [address] documented as of this encounter Procedures Procedure [...] 2:55 PM MST Indications: ?CP PATHWAY CALL [phone] IF POS ORIGINAL REPORT - 24-Jul-2009 14:55:00 [...] from the original. Indications: CP PATHWAY CALL [phone] IF PO S ORIGINAL REPORT - 24-Jul-2009 [...]
--- OUTSIDE RECORDS SUMMARY | 2022-08-17 07:04 | XMS_ITS | Encounter Summary ---
:1965 Author Organization [facility] Address [address] [place] [address] Care Team Providers Name Role Phone Unavailable Primary Care Provider Unavailable Encounter Details Date Type Department Care Team Description 06/21/2017 Hospital Encounter HX [facility]TR Hernesto Watson M.D. [address] [facility], [address] [place] [address] (Wo rk) Social History Tobacco Use Types [...] you attend jewish or Patient refused 2021 jew services? 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 Romero. REFERRED FOR Ms. [...] WATSON MD On: 06/21/2017 03:10 PM Source: [facility] MHSDOLBEYNONRADSYS Document Id: [id number] documented in this encounter Miscellaneous Notes Miscellaneous - Sergio Watson, M.D. - 06/21/2017 2:19 PM CDT Ambulatory Discharge Medication List [address] [id number] Visit Information Name: KAYLIN BENDER [facility] Number: [id number] Current Date: 06/21/2017 14:19:38 Attending [...] MD Signed On:21-JUN-2017 14:19:21 Additional Information: Source: [facility] POWERCHART Document Id: [id number] Reema - Sergio Watson M.D. - 06/21/2017 2:19 PM CDT Ambulatory Patient Summary [address] [id number] Visit Information Name: KAYLIN BENDER [facility] Number: [id number] Current Date: 06/21/2017 14:19:38 Physicians [...] online form. Youll be asked for your [facility] number which you can find at the top of this document. Your Goals/Additional instructions: Source: [facility] POWERCHART Document Id: [id number] Miscellaneous - Ayla Mcmanus, L.P.N. - 06/21/2017 1:25 PM CDT Adult Associate Technician Intake/History Adult Associate Technician Intake/History Entered On: 06/21/2017 13:26 CDT Performed On: 06/21/2017 13:25 CDT by MARIETTA, AYLA J CRANE HOIST OR LIFT OPERATOR Intake Systolic Blood Pressure : 124 mmHg Diastolic Blood Pressure : 62 mmHg NIBP Mean : 83 mmHg BP Location : Left upper extremity Blood Pressure Cuff Size : Regular Actual Weight : 70.55 kg(Converted to: 155 lb 9 oz) Dosing Weight Clinic : 70.55 kg AYLA MCMANUS LPN - 06/21/2017 13:25 CDT General Info Information Given By : Patient Languages : Equ[place]inean Is Patient Female and 13-50 no hysterectomy [...] MCMANUS LPN - 06/21/2017 13:25 CDT Source: [employer] Document Id: [id number]!24 documented in this encounter Plan of Treatment Upcoming Encounters Date Type Specialty Care Team Description 09/01/2022 Clinical Communication Admitting/Central Scheduling 09/06/2022 Appointment Radiology Alfredo Herrera O.P.A.-C. [address] [place] [address] 09/06/2022 Office Visit Orthopedic Surgery Cyrus Polk M.D. [address] [place] [address] documented as of this encounter Visit Diagnoses Not on filedocumented in this encounter
--- OUTSIDE RECORDS SUMMARY | 2022-08-17 07:04 | XMS_ITS | Encounter Summary ---
:1965 Author Organization [facility] Address [address] [place] [address] Care Team Providers Name Role Phone Unavailable Primary Care Provider Unavailable Encounter Details Date Type Department Care Team Description 09/25/2015 Hospital Encounter HX [facility] PMTR Hernesto Watson M.D. [address] [facility], [address] [place] [address] (Wo rk) Social History Tobacco [...] you attend protestant or Patient refused 2021 confucianist services? Do [...] KUNZ LPN On: 09/25/2015 03:38 PM Source: [facility] POWERCHART Document Id: [id number] documented in this encounter Miscellaneous Notes Telephone Encounter - Conversion, Historical Provider Ser - 05/11/2017 11:32 AM CDT *Phone Message/Dr. Watson Document Contains Addenda Addendum by IVY BENITEZ on May 11, 2017 13:27:22 CDT From: IVY BENITEZ ( [place] [employer]) To: Physical Medicine and Rehabilitation Staff; Sent: 05/11/2017 13:27:22 CDT Subject: RE: *Phone Message/Dr. Watson Left message on patients phone regarding this appointment. Addendum by NIKKIE GANDHI LPN on May 11, 2017 12:57:21 CDT From: NIKKIE GANDHI LPN ( Physical Medicine and Rehabilitation Staff) To: [place] [employer]; Sent: 05/11/2017 12:57:21 CDT Subject: RE: *Phone Message/Dr. Watson 27th noon, please reschedule. From: IVY BENITEZ ( [place] [employer]) To: Physical Medicine and Rehabilitation Staff; Sent: [...] come today, she would like it rescheduled [facility] since Dr. Romero wanted her to have it done. Please call her back at [phone] to advise. Advice/Action: Source used: ( ) [...] back cell phone number ( ) Source: [facility] Nudge Document Id: [id number] Miscellaneous - Nikkie Gandhi L.P.N. - 05/04/2017 4:19 PM CDT *General Message Document Contains Addenda Addendum by ISIDRO HI on May 04, 2017 16:42:57 CDT From: ISIDRO HI ( [place] [employer]) To: Physical Medicine and Rehabilitation Staff; Sent: 05/04/2017 16:42:57 CDT Subject: RE: *General Message Called patient and scheduled as requested. From: NIKKIE GANDHI LPN ( Physical Medicine and Rehabilitation Staff) To: [place] [employer]; Sent: 05/04/2017 16:19:56 CDT Subject: *General Message Please call patient to schedule for bilateral upper extremity EMG. 05/11/17 at 11:45 am. 1 hour Source: [facility] Nudge Document Id: [id number] Electronically signed by Avinash [facility] Dental Assistant Teacher [id number] at 06/01/2017 1:18 AM CDT documented in this encounter Plan of Treatment Upcoming Encounters Date Type Specialty Care Team Description 09/01/2022 Clinical Communication Admitting/Central Scheduling 09/06/2022 Appointment Radiology Alfredo Herrera O.P.A.-C. [address] [place] [address] 09/06/2022 Office Visit Orthopedic Surgery Cyrus Polk M.D. [address] [place] [address] documented as of this encounter Visit Diagnoses Not on filedocumented in this encounter
--- OUTSIDE RECORDS SUMMARY | 2022-08-17 07:04 | XMS_ITS | Encounter Summary ---
:1965 Author Organization [facility] Address [address] [place] [address] Care Team Providers Name Role Phone Unavailable [...] you attend jewish or Patient refused 2021 jehovah's witness services? [...] Appointment Radiology Alfredo Herrera O.P.A.-C. [address] [place] [address] 09/06/2022 Office Visit Orthopedic Surgery Cyrus Polk M.D. [address] [place] [address] documented as of this encounter Visit Diagnoses Not on filedocumented in this encounter
--- OUTSIDE RECORDS SUMMARY | 2022-08-17 07:04 | XMS_ITS | Encounter Summary ---
:1965 Author Organization [facility] Address [address] [place] [address] Care Team Providers Name Role Phone Unavailable [...] you attend evangelical or Patient refused 2021 islam services? Do [...] Appointment Radiology Alfredo Herrera O.P.A.-C. [address] [place] [address] 09/06/2022 Office Visit Orthopedic Surgery Cyrus Polk M.D. [address] [place] [address] documented as of this encounter Visit Diagnoses Not on filedocumented in this encounter
--- OUTSIDE RECORDS SUMMARY | 2022-08-17 07:04 | XMS_ITS | Encounter Summary ---
:1965 Author Organization [facility] Address [address] [place] [address] Care Team Providers Name Role Phone Unavailable [...] you attend mormon or Patient refused 2021 synagogue services? Do [...] Appointment Radiology Alfredo Herrera O.P.A.-C. [address] [place] [address] 09/06/2022 Office Visit Orthopedic Surgery Cyrus Polk M.D. [address] [place] [address] documented as of this encounter Procedures Procedure [...]
--- OUTSIDE RECORDS SUMMARY | 2022-08-17 07:04 | XMS_ITS | Encounter Summary ---
:1965 Author Organization [facility] Address [address] [place] [address] Care Team Providers Name Role Phone Unavailable [...] you attend samaritan or Patient refused 2021 buddhism services? Do [...] Appointment Radiology Alfredo Herrera O.P.A.-C. [address] [place] [address] 09/06/2022 Office Visit Orthopedic Surgery Cyrus Polk M.D. [address] [place] [address] documented as of this encounter Procedures Procedure [...] 9:46 PM MST Indications: ?CP PATHWAY CALL [phone] IF POS ?? tech: pt. not and [...] from the original. Indications: CP PATHWAY CALL [phone] IF PO S tech: pt. not and [...] He Figueroa M.D. IMG DIAGNOSTIC IMAGING PROCE [facility] ECG 12 Lead with rhythm strip (02/03/2009 12:00 AM [facility]) Specimen (Source) Anatomical Location Collection Method / Collectio n Time Received Time / Laterality Volume 02/03/2009 Historical Provider ECG ORDERABLES Performing Organization Address City/State/ZIP Code Phon e Number HX [place] CONVERSION documented in this encounter Visit Diagnoses Not on filedocumented in this encounter
--- OUTSIDE RECORDS SUMMARY | 2022-08-17 07:04 | XMS_ITS | Encounter Summary ---
:1965 Author Organization [facility] Address [address] [place] [address] Care Team Providers Name Role Phone Unavailable [...] you attend synagogue or Patient refused 2021 jainism services? Do [...] Appointment Radiology Alfredo Herrera O.P.A.-C. [address] [place] [address] 09/06/2022 Office Visit Orthopedic Surgery Cyrus Polk M.D. [address] [place] [address] documented as of this encounter Visit Diagnoses Not on filedocumented in this encounter
--- OUTSIDE RECORDS SUMMARY | 2022-08-17 07:04 | XMS_ITS | Encounter Summary ---
:1965 Author Organization [facility] Address [address] [place] [address] Care Team Providers Name Role Phone Elsewhere, Pcp Primary Care Provider Unavailable Reason for Referral Outpatient (Routine) - Closed Specialty Diagnoses / Procedures Referred By Contact Refer red To Contact Otorhinolaryngology Diagnoses Sinus Nose Disorder Sinusitis Chronic Chris Mckeon [place] M.D. [address] [place] [address] Referral ID Status Reason Start Date Expiration Date Visits Requ ested Visits Authorized [id number] Closed 01/10/2019 01/10/2020 1 1 ULE SEALER Encounter Details Date Type Department Care Team Description 01/10/2019 [facility] Mike, Sinu s Nose Disorder (Primary Dx); AND CLINICS Chris Celaya M.D. Sinusitis Chronic [address] [facility] [address] [place] [address] [place], [place] [phone] [address] Social History Tobacco Use Types Packs/Day Years [...] you attend orthodox or Patient refused 2021 lutheran services? Do [...] Appointment Radiology Alfredo Herrera O.P.A.-C. [address] [place] [address] 09/06/2022 Office Visit Orthopedic Surgery Cyrus Polk M.D. [address] [place] [address] Scheduled Referrals Name Type Priority Associated Order Schedule Diagnoses Otolaryngology Referral Outpatient Referral Routine Sinus Nose Expected: Disorder 01/10/2019 Sinusitis Chronic (Approxima te), Expires: 01/10/2022 documented as of this encounter Visit Diagnoses Diagnosis Sinus Nose Disorder - Primary Sinusitis Chronic documented in this encounter Additional Health Concerns Infection Onset Date Last Indicated Resolved Time COVID19 Pending 01/31/2021 01/31/2021 01/31/2021 10:53 PM AMPOULE SEALER COVID19 Pending 02/10/2021 02/11/2021 02/11/2021 1:09 AM CDT COVID19 Pending 12/29/2021 12/29/2021 12/29/2021 4:20 PM AMPOULE SEALER COVID19 Pending 02/25/2022 02/25/2022 02/25/2022 3:59 PM CDT COVID19 Pending 05/17/2022 05/17/2022 05/17/2022 2:34 PM CDT COVID19 Pending 06/15/2022 06/15/2022 06/15/2022 8:24 PM CDT documented as of this encounter Care Teams Stock Saw Operator Relationship Specialty Start Date End Date Elsewhere, Pcp PCP - General Family Medicine 12/25/21 documented as of this encounter
--- OUTSIDE RECORDS SUMMARY | 2022-08-17 07:04 | XMS_ITS | Encounter Summary ---
:1965 Author Organization [facility] Address [address] [place] [address] Care Team Providers Name Role Phone Unavailable Primary Care Provider Unavailable Encounter Details Date Type Department Care Team Description 08/18/2008 - Hospital Encounter HX ARZ NO MAPPING Provider, Jadyn hoguh 08/19/2008 Social History Tobacco Use Types Packs/Day [...] you attend alevism or Patient refused 2021 protestant services? Do [...] Appointment Radiology Alfredo Herrera O.P.A.-C. [address] [place] [address] 09/06/2022 Office Visit Orthopedic Surgery Cyrus Polk M.D. [address] [place] [address] documented as of this encounter Procedures Procedure Name Priority Date/Time Associated Diagnosis Comme nts DX CHEST AP OR PA Routine 08/18/2008 9:44 PM Resu lts for this AND LATERAL 2 VIEWS MST procedur e are in the results section. documented in this encounter Results DX Chest AP or PA and Lateral 2 Views (08/18/2008 9:44 PM [facility]) Anatomical Region Laterality Modality Chest, Thoracic RST LOS N/A Radiographic Xi ging Specimen (Source) Anatomical Collection Method Collection Time Re ceived Time Location / / Volume Laterality 08/18/2008 9:44 PM MST Narrative 08/18/2008 9:57 PM [facility] Indications: ?PNE PATHWAY CALL IF POS [...]
--- OUTSIDE RECORDS SUMMARY | 2022-08-17 07:04 | XMS_ITS | Encounter Summary ---
:1965 Author Organization [facility] Address [address] [place] [address] Care Team Providers Name Role Phone Unavailable [...] you attend hindu or Patient refused 2021 synagogue services? Do [...] Alfredo Herrera O.P.A.-C. [address] [place] [address] 09/06/2022 Office Visit Orthopedic Surgery Cyrus Polk M.D. [address] [place] [address] documented as of this encounter Procedures Procedure [...] 4:56 PM MST Narrative 07/06/2008 5:07 PM [facility] Indications: ?PNE PATHWAY CALL [phone] IF POS. ??TECHNOTE: NIPPLE PIERCINGS LUNG ARTIFACT. [...] from the original. Indications: PNE PATHWAY CALL [phone] IF P OS. TECHNOTE: NIPPLE PIERCINGS LUNG [...]
--- OUTSIDE RECORDS SUMMARY | 2022-08-17 07:04 | XMS_ITS | Encounter Summary ---
:1965 Author Organization [facility] Address [address] [place] [address] Care Team Providers Name Role Phone Unavailable [...] you attend religion or Patient refused 2021 bahai services? Do [...] Appointment Radiology Alfredo Herrera O.P.A.-C. [address] [place] [address] 09/06/2022 Office Visit Orthopedic Surgery Cyrus Polk M.D. [address] [place] [address] documented as of this encounter Visit Diagnoses Not on filedocumented in this encounter
--- OUTSIDE RECORDS SUMMARY | 2022-08-17 07:04 | XMS_ITS | Encounter Summary ---
:1965 Author Organization [facility] Address [address] [place] [address] Care Team Providers Name Role Phone Unavailable Primary Care Provider Unavailable Encounter Details Date Type Department Care Team Description 01/15/2010 - Hospital Encounter HX ARZ NO MAPPING Leonides Du, 01/16/2010 [address] [place] [address] Social History Tobacco Use Types [...] you attend judaism or Patient refused 2021 pentecostalism services? Do [...] Appointment Radiology Alfredo Herrera O.P.A.-C. [address] [place] [address] 09/06/2022 Office Visit Orthopedic Surgery Cyrus Polk M.D. [address] [place] [address] documented as of this encounter Procedures Procedure Name Priority Date/Time Associated Comments Diagnosis [place] ESOPHAGRAM SINGLE Routine 01/15/2010 9:36 PM R esults for this CONTRAST MST procedure are i n the results section. documented in this encounter Results [place] Esophagram (01/15/2010 9:36 PM [facility]) Anatomical Region Laterality Modality Gastro Intestinal, Abdominal [...]
--- OUTSIDE RECORDS SUMMARY | 2022-08-17 07:04 | XMS_ITS | Encounter Summary ---
:1965 Author Organization [facility] Address [address] [place] [address] Care Team Providers Name Role Phone Unavailable Primary Care Provider Unavailable Reason for Visit Reason Onset Date Comments Prior Medical Records/Sinus CT 03/02/2019 Encounter Details Date Type Department Care Team Description 03/02/2019 Clinical Department of [facility], Prior Medical Communication Otorhinolaryngology in [place] rds/Sinus CT [place], [place] Lilian [address] [facility] [address] [place] [phone] [place] [address] Social History Tobacco Use Types Packs/Day Years [...] you attend anabaptism or Patient refused 2021 yazdanism services? Do [...] AM CDT Per [place] (Dr. Olmedo), [facility] (Dr. Mckeon) ([phone]) was contacted. The previousmedical records have been received and sent for scanning into pt's chart. [facility] will be [facility]. Coby documented in this encounter Plan of Treatment Upcoming Encounters Date Type Specialty Care Team Description 09/01/2022 Clinical Communication Admitting/Central Scheduling 09/06/2022 Appointment Radiology Alfredo Herrera O.P.A.-C. [address] [place] [address] 09/06/2022 Office Visit Orthopedic Surgery Cyrus Pokl M.D. [address] [place] [address] documented as of this encounter Visit Diagnoses Not on filedocumented in this encounter
--- OUTSIDE RECORDS SUMMARY | 2022-08-17 07:04 | XMS_ITS | Encounter Summary ---
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 [facility] [address] [place] [phone] Referral ID Status Reason Start Date Expiration Date Visits Requ ested Visits Authorized [id number] Closed 03/31/2019 03/30/2020 1 1 Reason for Visit Reason Comments Dizziness Evaluated in [place] with CT scan. Headache Encounter Details Date Type Department Care Team Description 03/29/2019 - Hospital Encounter [facility] Alfredo Rausch M.D., M.A. [address] [place] [address] Stroke (HCC) (Primary Dx); [facility] [address] [place] [phone] Transient Ischemic Attack; [facility], Nan Rios M.D. [address] [place] [phone] Thrombosis Arterial (HCC); [facility], Nicotine Dependence Cigarettes; Second floor Aneurysm Cerebral Unruptured ([facility]) [address] [place] [address] Social History Tobacco Use Types [...] you attend congregation or Patient refused 2021 hindu services? Do [...] patient, follows with Dr. Estephanie Franz in [place], [place]. Primary Care Provider Phone Number: None [...] and PCP follow-up with Dr. Franz in [place], [place], scheduled for 04/02/2019. - Please be [...] 04/10/2019 2:15 PM Darlin Olmedo M.D. [facility] RS[facility]ol[facility] Spec TEST RESULTS PENDING AT DISCHARGE [...] speech at the time. She presented to [facility], where MRI/MRA head showed multiple foci [...] was discharged on a weekend, our clinical portfolio assistant will arrange for PCP follow-up and [...] speech at the time. She presented to [facility], where MRI/MRA head showed multiple foci [...] was discharged on a weekend, our clinical portfolio assistant will arrange for PCP follow-up and INR checks on Tuesday. RECOMMENDATIONS: - Patient to continue enoxaparin 70 mg (1 mg/kg) BID bridge to warfarin with goal INR 2-3. Patient to receive INR checks and PCP follow-up with Dr. Franz in [place], [place] as soon as possible after discharge. [...] this after visit summary to your appointment(s). [place], [place] April 02, 2019 - Tuesday --12:30 PM - Hospital Follow-Up with Dr. Gold MD, Colleague of Juana Franz MD, primary care provider, at [facility] RECOMMENDATIONS: * April 02, 2019 at 9:30 AM [facility] INR Check * [facility] You may have outpatient appointments at [facility] that changed during your hospitalization. Refer to your [facility] Patient Visit Guide (PVG) for the most current schedule of appointments and detailed instructions of tests/procedures. Call [phone], if you did not receive an PVG or need to CANCEL any [facility] appointment(s). You were discharged from [...] are intact. There is no dysmetria on gdrdww-nu-apcb and otmj-ok-ijdo. There are no abnormal or extraneous movements. [...] next week (to be arranged by clinical portfolio assistant, in-basket message sent). Will also require [...] --Will arrange for PCP appt (Dr. Franz, [place], [place]) for INR monitoring 04/02 or earliest [...] page the neurology stroke/cerebrovascular disease service pager ([phone]) with any questions orconcerns. Kylie Rubio RRebekah. [...] are intact. There is no dysmetria on lujmxv-ry-mknn and ewgg-mm-fnvc. There are no abnormal or extraneous movements. [...] Findings discussed at 2:03 p.m with pager [phone] Additional Diagnostic Studies Ecg 12 Lead Result [...] page the neurology stroke/cerebrovascular disease service pager ([phone]) with any questions orconcerns. documented in this [...] the day of presentation and came to [facility], although head CT did not demonstrate [...] developed a headache approximately 45 min later. [place] room was tilting, not spinning, and had [...] dull and mild now. She presented to [facility], where MRI/MRA head showed multiple foci [...] are intact. There is no dysmetria on gbgcml-qf-roij and kkmx-tm-htxi. There are no abnormal or extraneous movements. [...] Findings discussed at 2:03 p.m with pager [phone] Additional Diagnostic Studies ASSESSMENT / PLAN Ms. [...] Please page the stroke/cerebrovascular neurology service pager ([phone]) for any questions or concerns. STROKE DOCUMENTATION: [...] Prior Function / Occupational Profile Level of [place]: Independent with ADLs and functional transfers, Independent [...] Score: 24 Basic Mobility Standardized Score: 61.14 [facility] 0-100% Score: 0 % Basic Mobility [facility] Modifier: CH INTERPRETATION: Clinicians answer the [...] 53 y.o. female who was seen at [facility] and is being evaluated for Tobacco [...] Prior Function / Occupational Profile Level of [place]: Independent with ADLs and functional transfers, Independent [...] be independent with home exercise resistive theraband ([place]) program for left shoulder and elbow (MET) OT Goal #3 Date: 03/30/19 @FLOW12([id number])@ Plan Patient agrees with the plan of [...] living independently in her own apartment in [place] until yesterday morning when she noted the [...] Ms. Mosquera was initially taken to the [facility] where MRI/MRA (images which I reviewed in QREADS) revealed bila teral small areas of restricted diffusion in posterior distribution involving both the cerebellar and occipital lobes. The etiology was presumed embolic and she was transferred to [place] for further evaluation here. Upon arrival at [place], Ms. Mosquera was described as alert, in [...] has lived alone in an apartment in [place] for,I believe, 5 years. She is unemployed, [...] tone: Upper and lower extremities 0/0. Coordination: Egcmqz-pq-buzc was 0/0. Satellite sign was symmetric. Cranial nerves II through XII: Extraocular movements were intact. Visual jhaveri were intact. Krlp-pw-dtguwuzs decreased hearing acuity bilaterally. Smile symmetric. Tongue [...] 53 y.o. female who presents to the [place] [facility] for evaluation of vertigo and [...] an Emergency Neurology consult note. Please page [phone] with any additional questions. I personally spent [...] CHIEF COMPLAINT/REASON FOR VISIT Dizziness (Evaluated in [place] with CT scan. ) and Headache HISTORY OF PRESENT ILLNESS 53-year-old female who presents from outside facility to [facility] ED with a chief concern of [...] She was transported from outside hospital to [facility] for further evaluation management by [...] do basic arithmetic No visual agnosia No heny-qz-fikdf agnosia Isdzsf-ck-rhfc normal Dpaa-cl-ouot normal Skin: Skin is warm, dry, intact [...] to the emergency department by ambulance from [facility] for evaluation of headache and difficulty with balance. Patient states that she woke up this morning and felt like her body was drunk. She subsequently developed a headache. She was seen at the outside hospital and underwent neuro imaging, laboratory evaluation, EKG testing. She now presents for neurological[facility]uation at [facility]. She is currently complaining of fatigue only. Neuro imaging at [place]: MRI head MRA demonstrates multiple foci of [...] speech at the time. She presented to [facility], where MRI/MRA head showed multiple foci [...] was discharged on a weekend, our clinical portfolio assistant will arrange for PCP follow-up and INR checks on Tuesday. documented in this encounter Plan of Treatment Upcoming Encounters Date Type Specialty Care Team Description 09/01/2022 Clinical Communication Admitting/Central Scheduling 09/06/2022 Appointment Radiology Alfredo Herrera O.P.A.-C. [address] [place] [address] 09/06/2022 Office Visit Orthopedic Surgery Cyrus Polk M.D. [address] [place] [address] Scheduled Referrals Name Type Priority Associated Order Schedule Diagnoses Neurology - Outpatient Routine Stroke (HCC) Expected: Cerebrovascular consult Referral Thrombosis 02/2019 (clinic) Arterial (HCC) (Approximate), Aneurysm Cerebral Expires: [facility] ([facility] [...] - Routine 03/30/2019 5:32 Results for HOSPITAL MORTISING MACHINE OPERATOR - PM CDT this proc edure [...] the ventral aspect (series 6 image s [id number]). The lumen remains significantly irregular and there [...] well seen. The RADHA, MCA, a nd RETAIL CUSTODIAL ASSOCIATE branches are unremarkable in appearance. Stable postoperative [...] the ventral aspect (series 6 image s [id number]). The lumen remains significantly irregular and there [...] well seen. The RADHA, MCA, a nd RETAIL CUSTODIAL ASSOCIATE branches are unremarkable in appearance. Stable postoperative [...] Signature Prothrombin 11.5 9.4 - 12.5 03/31/2019 [facility] Time, P sec 8:46 AM CDT LABORATORIES - [facility] INR 1.0 0.9 - 1.1 03/31/2019 [facility] 8:46 AM CDT LABORATORIES [facility] Comment: ----ADDITIONAL INFORMATION---- Standard intensity warfarin therapeutic range: 2.0 to 3.0 ?? High intensity warfarin therapeutic rang e: 2.5 to 3.5 Specimen Anatomical Collection Method Collection Time Receive d Time (Source) Location / / Volume Laterality Blood (Blood, 03/31/2019 8:12 AM 03/31/20 19 8:32 Venous) CDT AM CDT Trent Ferrer M.D. LAB BLOOD ADD-ON Performing Organization Address City/State/ZIP Code Phon e Number [facility] LABORATORIES - [address] [place] [address] [facility] CBC without Differential (03/31/2019 8:12 AM CDT) [facility] Plethora Method Time Signature Hemoglobin 12.9 11.6 - 03/31/2019 [facility] 15.0 g/dL 8:37 AM CDT [facility]ATORIES - [facility] Hematocrit 39.6 35.5 - 03/31/2019 [facility] 44.9 % 8:37 AM CDT LAB[facility]ATORIES - [facility] Erythrocytes 4.06 3.92 - 03/31/2019 [facility] 5.13 8:37 AM CDT LABORATORIES - x10(12)/L [facility] MCV 97.5 78.2 - 03/31/2019 [facility] 97.9 fL 8:37 AM CDT LABORATORIES [facility] RBC Distrib Width 13.2 12.2 - 03/31/2019 [facility] 16.1 % 8:37 AM CDT LABORATORIES [facility] Platelet Count 256 157 - 371 03/31/2019 [facility] x10(9)/L 8:37 AM CDT [facility]ATOR[facility] - [facility] Leukocytes 5.3 3.4 - 9.6 03/31/2019 [facility] x10(9)/L 8:37 AM CDT LAB[facility]ATORIES - [facility] Specimen Anatomical Collection Method Collection Time Receive d Time (Source) Location / / Volume Laterality Blood (Blood, 03/31/2019 8:12 AM 03/31/20 19 8:31 Venous) CDT AM CDT Trent Ferrer M.D. LAB BLOOD ADD-ON Performing Organization Address City/State/ZIP Code Phon e Number [facility] LABORATORIES - [address] [place], [place] [address] [facility] HOLTER MONITOR - HOSPITAL MORTISING MACHINE OPERATOR - MONITORED IN HOSPITAL OR ED DISCHARGE (03/30/2019 5:32 PM CDT) [facility] gist Method Time Signature Recording Date [id number] HOLTER SENTINEL Analysis Date 20,190,510 HOLTER SENTINEL Max Heart Rate 125 bpm HOLTER SENTINEL Max Heart Rate HOLTER Time SENTINEL Min Heart Rate 46 bpm HOLTER SENTINEL Min Heart Rate [id number] HOLTER Time SENTINEL Mean Heart 71 bpm [...] count HOLTER Hour SENTINEL VE Max Per [id number] HOLTER Hour Time SENTINEL AF Count 0 count HOLTER SENTINEL SVT Runs 0 count HOLTER SENTINEL SVE Total 106 count HOLTER Beats SENTINEL SVE Percent 0 percent HOLTER Beats SENTINEL SVE Max Per 18 count HOLTER Hour SENTINEL SVE Max Per [id number] HOLTER Hour Time SENTINEL Specimen (Source) Anatomical [...] superior vena cava. Patent foramen ovale. ??No pufy-wr-izizr shunt at atrial level. ??Agitated saline injection(s) performed. ??Small scbio-cx-zdgr shunt a t atrial level at rest and with Valsalva release. Pericardial effusion. ??PROCEDURE ??Max sesophageal echocardiogram performed at the request of the primary bridal service sales and management. ??Adult probe inserted without difficulty. ??Procedure performed [...] Sedation Narrator or other pertinent record in [facility] for additional procedure and sedation [...] superior vena cava. Patent foramen ovale. No gbtt-ak-lpfax s ballesteros at atrial level. Agitated saline injection(s) performed. Small nxern-ww-odsk shunt at atrial level at rest and with Valsalva release. Pericardial effusion. PROCEDURE Transeso phageal echocardiogram performed at the request of the primary bridal service sales and management. Adult pr obe inserted without difficulty. Procedure [...] Sedation Narrator or other pertinent record in [facility] for additional procedure and sedation in formation. Transesophageal echocardiogram completed without complications. For the complete report, see the Order-L evel Documents below. See PDF For Result Trent Ferrer M.D. CV ECHO PROCEDURES Prothrombin Time (PT/INR) (03/30/2019 11:42 AM CDT) [facility] Method Time Signature Prothrombin 11.3 9.4 - 12.5 03/30/2019 [facility] Time, P sec 12:05 PM CDT [facility]ATORIES - [facility] INR 1.0 0.9 - 1.1 03/30/2019 [facility] 12:05 PM CDT LABORATORIES [facility] Comment: ----ADDITIONAL INFORMATION---- Standard intensity warfarin therapeutic range: 2.0 to 3.0 ?? High intensity warfarin therapeutic rang e: 2.5 to 3.5 Specimen Anatomical Collection Method Collection Time Receive d Time (Source) Location / / Volume Laterality Blood (Blood, 03/30/2019 11:42 03/30/2019 Venous) AM CDT 11:51 AM CDT Trent Ferrer M.D. LAB BLOOD ADD-ON Performing Organization Address City/[facility]/ZIP Code Phon e Number [facility] LABORATORIES - [address] [place], [place] [address] [facility] ECG 12 Lead (03/30/2019 9:30 AM CDT) P athologist Signature Ventricular Rate 53 BPM MUSE ECG/Min NH Interval 150 ms MUSE QRSD Interval 84 ms MUSE QT Interval 452 ms MUSE QTC Interval 424 ms MUSE P Davis 7 degrees MUSE R Davis -11 degrees MUSE T Wave Davis 1 degrees MUSE Specimen Anatomical Collection Method [...] Vieyra M.D. ECG ORDERABLES Performing Organization Address City/[facility]/ZIP Code Phon e Number MUSE MUSE NA Basic Metabolic Panel (03/30/2019 6:21 AM CDT) Analysis Performed At Patho logist Time Signature Potassium, S 4.1 3.6 - 5.2 03/30/2019 [facility] mmol/L 7:41 AM CDT LABORATORIES [facility] Sodium, S 141 135 - 145 03/30/2019 [facility] mmol/L 7:41 AM CDT [facility] Chloride, S 106 98 - 107 03/30/2019 [facility] mmol/L 7:41 AM CDT LABORATORIES [facility] Bicarbonate, S 24 22 - 29 03/30/2019 [facility] mmol/L 7:41 AM CDT [facility] Anion Gap 11 7 - 15 03/30/2019 [facility] 7:41 AM T [facility] BUN (Blood Urea 14 6 - 21 03/30/2019 [facility] Nitrogen), S mg/dL 7:41 AM T [facility] Creatinine 0.73 0.59 - 03/30/2019 [facility] 1.04 mg/dL 7:41 AM T [facility] eGFR-Non >90 >=60 03/30/2019 [facility] Black/ mL/min/BSA 7:41 AM T LABORATORIES [facility] Comment: ----ADDITIONAL INFORMATION---- Estimated GFR calculated using the 2009 CKD_EPI creatinine equation. eGFR-Black/ >90 >=60 mL/min/BSA 03/30/2019 7:41 [facility] ERT [facility] Comment: ----ADDITIONAL INFORMATION---- Estimated GFR calculated using the 2009 CKD_EPI creatinine equation. Calcium, Total, S 8.9 8.6 - 10.0 mg/dL 03/30/2019 7:41 AM [facility] Glucose, S 100 70 - 140 mg/dL 03/30/2019 7:41 AM [facility] Specimen Anatomical Collection Method Collection Time Receive d Time (Source) Location / / Volume Laterality Blood (Blood, 03/30/2019 6:21 AM 03/30/20 19 6:52 Venous) CDT AM CDT Trent Ferrer M.D. LAB BLOOD ADD-ON Performing Organization Address City/State/ZIP Code Phon e Number [facility] - [address] [place] [address] [facility] (ABNORMAL) CBC without Differential (03/30/2019 6:21 AM CDT) [facility] gist Method Time Signature Hemoglobin 12.5 11.6 - 03/30/2019 [facility] 15.0 g/dL 6:54 AM CDT LAB[facility]ATORIES - [facility] Hematocrit 37.9 35.5 - 03/30/2019 [facility] 44.9 % 6:54 AM CDT LAB[facility]ATORIES - [facility] Erythrocytes 3.87 (L) 3.92 - 03/30/2019 [facility] 5.13 6:54 AM CDT LABORATORIES - x10(12)/L [facility] MCV 97.9 78.2 - 03/30/2019 [facility] 97.9 fL 6:54 AM CDT LABORATORIES [facility] RBC Distrib 13.5 12.2 - 03/30/2019 [facility] Width 16.1 % 6:54 AM CDT LABORATORIES [facility] Platelet Count 245 157 - 371 03/30/2019 [facility] x10(9)/L 6:54 AM CDT [facility]ATOR[facility] - [facility] Leukocytes 4.1 3.4 - 9.6 03/30/2019 [facility] x10(9)/L 6:54 AM CDT LABORATORIES [facility] Specimen Anatomical Collection Method Collection Time Receive d Time (Source) Location / / Volume Laterality Blood (Blood, 03/30/2019 6:21 AM 03/30/20 19 6:44 Venous) CDT AM CDT Trent Ferrer M.D. LAB BLOOD ADD-ON Performing Organization Address City/[facility]/ZIP Code Phon e Number [facility] LABORATORIES - [address] [place] [address] [facility] Coagulation Factor II Activity Assay (03/30/2019 6:20 AM CDT) P athologist Signature Coag Factor II 93 75 - 145 % 03/30/2019 [facility] Assay, P 11:53 AM CDT [facility] Comment: ----ADDITIONAL INFORMATION---- This test has been modified from the man ufacturer's instructions. Its performance characteri stics were determined by [facility] in a manner co [...] Organization Address City/State/ZIP Code Phon e Number [facility] LABORATORIES - [address] [place], [place] [address] [facility] Protein S Antigen, Total (03/30/2019 6:20 AM CDT) athologist Signature Protein S Ag, 91 80 - 160 % 03/30/2019 [facility] Total, P 11:04 AM CDT [facility] Comment: ----ADDITIONAL INFORMATION---- This test has been modified from the [facility]'s instructions. Its performance characteri stics were determined by [facility] in a manner co nsistent with CLIA requirements. This test has not bee n cleared or approved by the U.S. Food and Drug Admin istration. Specimen Anatomical Collection Method Collection Time Receive d Time (Source) Location / / Volume Laterality Blood 03/30/2019 6:20 AM 9 7:17 CDT AM CDT Trent Ferrer M.D. LAB BLOOD NON ADD-ON Performing Organization Address City/[facility] Phon e Number [facility] LABORATORIES - [address] [place], [place] [address] [facility] Reptilase Time, Plasma (03/30/2019 6:20 AM CDT) athologist Signature Reptilase 17 14 - 23 03/30/2019 [facility] Time, P sec 9:49 AM CDT [facility] Comment: ----ADDITIONAL INFORMATION---- This test has been modified from the page artr's instructions. Its performance characteri stics were determined by [facility] in a manner co nsistent with CLIA requirements. This test has not bee n cleared or approved by the U.S. Food and Drug Admin istration. Specimen Anatomical Collection Method Collection Time Receive d Time (Source) Location / / Volume Laterality Blood 03/30/2019 6:20 AM 9 7:17 CDT AM CDT Trent Ferrer M.D. LAB BLOOD ADD-ON Performing Organization Address City/[facility]/ZIP Code Phon e Number [facility] LABORATORIES - [address] [place], [place] [address] [facility] (ABNORMAL) APTT Mix 1:1 (03/30/2019 6:20 AM CDT) P athologist Signature APTT Mix 1:1 42 (H) 26 - 36 03/30/2019 [facility] sec 9:49 AM CDT [facility] Comment: ----ADDITIONAL INFORMATION---- This test has been modified from the man ufacturer's instructions. Its performance characteri stics were determined by [facility] in a manner co nsistent with CLIA requirements. This test has not bee n cleared or approved by the U.S. Food and Drug Admin istration. Specimen Anatomical Collection Method Collection Time Receive d Time (Source) Location / / Volume Laterality Blood 03/30/2019 6:20 AM 9 7:17 CDT AM CDT Trent Ferrer M.D. LAB BLOOD ADD-ON Performing Organization Address [facility] Phon e Number [facility] - [address] Heparin Anti-Xa Assay (03/30/2019 6:20 AM CDT) athologist Signature Heparin 0.38 IU/mL 03/30/2019 [facility] Anti-Xa, P 7:12 AM CDT LABORATORIES [facility] Comment: UFH therapeutic range: ?? 0.30-0.70 [...] LAB BLOOD NON ADD-ON Performing Organization Address [facility] Phon e Number [facility] - [address] Beta-2 Glycoprotein 1 Antibodies, IgG and IgM (03/30/2019 6:20 AM CDT) P athologist Signature Beta 2 GP1 Ab <9.4 <15.0 03/30/2019 [facility] IgG, S (Negative) 7:47 PM CDT [facility] U/mL [facility] Beta 2 GP1 Ab <9.4 <15.0 03/30/2019 [facility] IgM, S (Negative) 7:[address] U/mL [facility] Specimen Anatomical Collection Method Collection Time Receive d Time (Source) Location / / Volume Laterality Blood (Blood, 03/30/2019 6:20 AM 03/30/20 19 9:55 Venous) CDT AM CDT Trent Ferrer M.D. LAB BLOOD ADD-ON Performing Organization Address City/[facility]/ZIP Code Phon e Number [facility] [address] [place], [place] [address] [facility] Phospholipid (Cardiolipin) Antibodies, IgG and IgM (03/30/2019 6:20 AM CDT) P athologist Signature Phospholipid Ab <9.4 <15.0 03/30/2019 [facility] IgM, S (Negative) 3:49 PM CD[address] [facility] Phospholipid Ab <9.4 <15.0 03/30/2019 [facility] IgG, S (Negative) 3:49 PM CDT [facility] Specimen Anatomical Collection Method Collection Time Receive d Time (Source) Location / / Volume Laterality Blood (Blood, 03/30/2019 6:20 AM 03/30/20 19 9:55 Venous) CDT AM CDT Trent Ferrer M.D. LAB BLOOD ADD-ON Performing Organization Address City/State/ZIP Code Phon e Number [facility] [address] [place], [place] [address] [facility] (ABNORMAL) Thrombophilia Profile (03/30/2019 6:20 AM CDT) [facility] Method Time Signature Prothrombin Time 10.9 10.3 - 03/30/2019 [facility] (PT), P 12.8 sec 9:35 AM CDT LABORATORIES [facility] INR 1.0 03/30/2019 [facility] 9:35 AM CDT [facility] Activated 57 (H) 26 - 36 03/30/2019 [facility] Partial sec 9:46 AM T LABORATORIES - Thrombopl Time, [facility] DRVVT Screen 0.7 0.0 - 1.1 03/30/2019 [facility] Ratio ratio 9:35 AM [facility] Thrombin Time 73 (H) 15 - 23 03/30/2019 [facility] (Bovine), P sec 9:46 AM CDT LABORATORIES - [facility] Comment: ----ADDITIONAL INFORMATION---- This test has been modified from the page ufacturer's instructions. Its performance characteri stics were determined by [facility] in a manner co nsistent with CLIA requirements. This test has not bee n cleared or approved by the U.S. Food and Drug Admin istration. Fibrinogen, P 276 200 - 430 mg/dL 03/30/2019 10:04 AM CDT [facility] Comment: ----ADDITIONAL INFORMATION---- This test has been modified from the page ufacturer's instructions. Its performance characteri stics were determined by [facility] in a manner co nsistent with CLIA requirements. This test has not bee n cleared or approved by the U.S. Food and Drug Admin istration. Fibrinogen 0.26 0.00 - 0.50 03/30/2019 12:44 PM [facility] Equivalent Units mcg/mL [facility] CDT LABORATORIES - (FE) [facility] D-Dimer Units (DDU) 130 0 - 250 ng/mL 03/30/2019 12:44 PM [facility] D-Dimer T [facility] Soluble Fibrin <8 0.0 - 7.9 mcg/mL 03/30/2019 1:19 PM [facility] Monomer T LABORATORIES [facility] Comment: ----ADDITIONAL INFORMATION---- This test was developed and its performa nce characteristics determined by [facility] in a manner co nsistent with CLIA requirements. This test has not bee n cleared or approved by the U.S. Food and Drug Admin istration. Antithrombin Activity, 99 80 - 130 % 03/30/2019 10:05 AM [facility] P CDT LABORATORIES [facility] S Comment: ----ADDITIONAL INFORMATION---- This test has been modified from the page Tumriacturer's instructions. Its performance characteri stics were determined by [facility] in a manner co nsistent with CLIA requirements. This test has not bee n cleared or approved by the U.S. Food and Drug Admin istration. Protein C Activity, P 131 70 - 150 % 03/30/2019 9:33 A M CDT [facility] Comment: ----ADDITIONAL INFORMATION---- This test has been modified from the page Tumriacturer's instructions. Its performance characteri stics were determined by [facility] in a manner co nsistent with CLIA requirements. This test has not bee n cleared or approved by the U.S. Food and Drug Admin istration. Protein S Ag, Free, 59 (L) 65 - 160 % 03/30/2019 10:19 AM [facility] P CDT [facility] Comment: ----ADDITIONAL INFORMATION---- This test has been modified from the page Tumriacturer's instructions. Its performance characteri stics were determined by [facility] in a manner co nsistent with CLIA requirements. This test has not bee n cleared or approved by the U.S. Food and Drug Admin istration. APCRV Ratio 3.0 >or=2.3 03/30/2019 10:11 [facility] AM CDT LABORATORIES [facility] Prothrombin [id number] Negative Negative 04/02/2019 5:19 [facility] Mutation, B PM CDT [facility] PTNT Reviewed By Lewis Moreno, 04/02/2019 5:19 [facility] MBBS PM CDT [facility] PTNT Interpretation This individual DOES NOT hav e the Prothrombin [id number] mutation. Although the 04/02/2019 5:19 [facility] Prothrombin [id number] mutation is absent, the chloe kang may have other genetic PM CDT LABORATORIES - and environmental risk factors for thrombosis. Alanna r genetic consultation [facility] and counseling of potentially affected family members [facility] testing. Comment: ----ADDITIONAL INFORMATION---- This test is a direct mutation analysis using PCR amplification, signal generation and release by cleavage of se quence specific alleles ([employer], [employer], [place], [place]). This test has been modified from the page Tumriacturer's instructions. Its performance characteristics were determi jayesh by [facility] in a manner consistent with CLIA requirements. This test has not been cleared or approved by the U.S. Food and Drug Administration . Reviewed by: Milad Emerson M.D. 04/03/2019 1:35 PM [facility] CDT LABORATORIES - [facility] Interpretation ?Type of Study: ?? Thrombophilia Profile 04/03/2019 1:35 PM [facility] ?IMPRESSION: ??1) Decreased protein S free antigen, a cquired versus CDT LABORATORIES - congenital. ??See comments and suggest clinical correlation. [facility] ?2) Data are consistent with the [...] patient does n ot have the prothrombin [id number] mutation. ?Separately performed and reported testing for beta-2 glycoprotein I and anticardiolipin antibodies (IgG and IgM isotypes) demonstrat ed normal results, providing no evidence of antiphospholipid antibodie s by these methodologies. Specimen Anatomical Collection Method Collection Time Receive d Time (Source) Location / / Volume Laterality Blood (Blood, 03/30/2019 6:20 AM 03/30/20 19 8:13 Venous) CDT AM CDT Narrative [facility] - 04/03/2019 1:37 PM CDT Specimen Information: Specimen ID: [id number] Specimen Type: Blood Specimen Collection Start Date: ??6:20 AM Specimen Received Date: 03/30/2019 ??8:13 AM Specimen ID: [id number] Specimen Type: Blood Specimen Collection Start Date: ??6:20 AM Specimen Received Date: 03/30/2019 ??7:17 AM Specimen ID: [id number] Specimen Type: Blood Specimen Collection Start Date: ??6:20 AM Specimen Received Date: 03/30/2019 ??7:17 AM Specimen ID: [id number] Specimen Type: Blood Specimen Collection Start Date: ??6:20 AM Specimen Received Date: 03/30/2019 ??7:17 AM Specimen ID: [id number] Specimen Type: Blood Specimen Collection Start Date: ??6:20 AM Specimen Received Date: 03/30/2019 ??7:17 AM Specimen ID: [id number] Specimen Type: Blood Specimen Collection Start Date: ??6:20 AM Specimen Received Date: 03/30/2019 ??7:17 AM Trent Ferrer M.D. LAB BLOOD NON ADD-ON Performing Organization Address City/State/ZIP Code Phon e Number [facility] - [address] [place], [place] [address] [facility] Heparin Anti-Xa Assay (03/29/2019 11:28 PM CDT) P athologist Signature Heparin 0.31 IU/mL 03/30/2019 [facility] Anti-Xa, P 12:05 AM CDT [facility] Comment: UFH therapeutic range: ?? [...] LAB BLOOD NON ADD-ON Performing Organization Address City/[facility] Phon e Number [facility] - [address] [place] [address] [facility] Hemoglobin A1c (03/29/2019 6:05 PM CDT) Analysis Performed At [facility] logist Time Signature Hemoglobin A1c, 5.6 4.0 - 5.6 03/29/2019 [facility] B % 6:50 PM CDT [facility] Specimen Anatomical Collection Method Collection Time Receive d Time (Source) Location / / Volume Laterality Blood (Blood, 03/29/2019 6:05 PM 03/29/20 19 6:28 Venous) CDT PM CDT Trent Ferrer M.D. LAB BLOOD ADD-ON Performing Organization Address City/[facility] Phon e Number [facility] LABORATORIES - [address] [place] [address] [facility] (ABNORMAL) Lipid Panel (03/29/2019 6:05 PM CDT) Patholo gist Method Time Signature Cholesterol, 204 (H) mg/dL 03/29/2019 [facility] Total 7:09 PM CDT [facility] Comment: ----REFERENCE VALUE---- Desirable: < 200 Borderline high: 200 - 239 High: > or = 240 Triglycerides 104 mg/dL 03/29/2019 7:09 PM CDT [facility] Comment: ----REFERENCE VALUE---- Normal: <150 Borderline high: 150-199 High: 200-499 Very high: > or =500 Cholesterol, HDL, S 91 >=50 mg/dL 03/29/2019 7:[address] [facility] Calculated LDL 92 mg/dL 03/29/2019 7:09 PM CDT [facility] Comment: ----REFERENCE VALUE---- Desirable: <100 Above Desirable: 100-129 Borderline high: 130-159 High: 160-189 Very high: > or =190 Cholesterol, Non-HDL, 113 mg/dL 03/29/2019 7:0 9 PM CDT [facility] Comment: ----REFERENCE VALUE---- Desirable: <130 Above Desirable: 130-159 Borderline high: 160-189 High: 190-219 Very high: > or =220 Specimen Anatomical Collection Method Collection Time Receive d Time (Source) Location / / Volume Laterality Blood (Blood, 03/29/2019 6:05 PM 03/29/20 19 6:28 Venous) CDT PM CDT Trent Ferrer M.D. LAB BLOOD ADD-ON Performing Organization Address City/[facility]/ZIP Code Phon e Number [facility] - [address] S-TSH (Thyroid-Stimulating Hormone - Sensitive) (03/29/2019 6:05 PM CDT) athologist [facility] TSH, Sensitive 1.6 0.3 - 4.2 03/29/2019 [facility] mIU/L 7:09 PM CDT [facility] Specimen Anatomical Collection Method Collection Time Receive d Time (Source) Location / / Volume Laterality Blood (Blood, 03/29/2019 6:05 PM 03/29/20 19 6:28 Venous) CDT PM CDT Trent Ferrer M.D. LAB BLOOD ADD-ON Performing Organization Address City/[facility]/ZIP Code Phon e Number [facility] - [address] APTT (Activated Partial Thromboplastin Time) (03/29/2019 4:46 PM CDT) athologist Signature Activated 29 25 - 37 03/29/2019 [facility] Partial sec 5:01 PM CDT LABORATORIES - Thrombopl [facility], [facility] Specimen Anatomical Collection Method Collection Time Receive d Time (Source) Location / / Volume Laterality Blood (Blood, 03/29/2019 4:46 PM 03/29/20 4:52 Venous) CDT PM CDT Trent Ferrer M.D. LAB BLOOD ADD-ON Performing Organization Address City/State/ZIP Code Phon e Number [facility] LABORATORIES - [address] [place], [place] [address] [facility] CT Head Neck Angiogram with IV [...] underwood discussed at 2:03 p.m with pager [phone] Narrative 03/29/2019 4:34 PM CDT EXAM: CT [...] gs discussed at 2:03 p.m with pager [phone] Eliseo Mejias M.D. IMGeronimo CT PROCEDURES CT [...] gs discussed at 2:03 p.m with pager [phone] Narrative 03/29/2019 4:34 PM CDT EXAM: CT [...] gs discussed at 2:03 p.m with pager [phone] Eliseo Mejias M.D. IMGeronimo CT PROCEDURES (ABNORMAL) CBC with Differential, Blood (03/29/2019 2:04 PM CDT) [facility] Method Time Signature Hemoglobin 12.4 11.6 - 03/29/2019 [facility] 15.0 g/dL 2:11 PM CDT LABORATORIES - [facility] Hematocrit 37.0 35.5 - 03/29/2019 [facility] 44.9 % 2:11 PM CDT LABORATORIES - [facility] Erythrocytes 3.79 (L) 3.92 - 03/29/2019 [facility] 5.13 2:11 PM CDT LABORATORIES - x10(12)/L [facility] MCV 97.6 78.2 - 03/29/2019 [facility] 97.9 fL 2:11 PM CDT LABORATORIES - [facility] RBC Distrib 13.3 12.2 - 03/29/2019 [facility] Width 16.1 % 2:11 PM CDT LABORATORIES - [facility] Platelet Count 238 157 - 371 03/29/2019 [facility] x10(9)/L 2:11 PM CDT LABORATORIES - [facility] Leukocytes 4.7 3.4 - 9.6 03/29/2019 [facility] x10(9)/L 2:11 PM CDT LABORATORIES - [facility] Neutrophils 2.33 1.56 - 03/29/2019 [facility] 6.45 2:11 PM CDT LABORATORIES - x10(9)/L [facility] Lymphocytes 1.74 0.95 - 03/29/2019 [facility] 3.07 2:11 PM CDT LABORATORIES - x10(9)/L [facility] Monocytes 0.32 0.26 - 03/29/2019 [facility] 0.81 2:11 PM CDT LABORATORIES - x10(9)/L [facility] Eosinophils 0.22 0.03 - 03/29/2019 [facility] 0.48 2:11 PM CDT LABORATORIES - x10(9)/L [facility] Basophils 0.04 0.01 - 03/29/2019 [facility] 0.08 2:11 PM CDT LABORATORIES - x10(9)/L [facility] Specimen Anatomical Collection Method Collection Time Receive d Time (Source) Location / / Volume Laterality Blood (Blood, 03/29/2019 2:04 PM 03/29/20 2:08 Venous) CDT PM CDT Eliseo Mejias M.D. LAB BLOOD ADD-ON Performing Organization Address City/State/ZIP Code Phon e Number [facility] LABORATORIES - [address] [place], [place] [address] [facility] Basic Metabolic Panel (03/29/2019 2:04 PM CDT) Analysis Performed At Patho logist Time Signature Potassium, P 4.0 3.6 - 5.2 03/29/2019 [facility] mmol/L 2:24 PM CDT LABORATORIES [facility] Sodium, P 142 135 - 145 03/29/2019 [facility] mmol/L 2:24 PM CDT LABORATORIES - [facility] Chloride, P 107 98 - 107 03/29/2019 [facility] mmol/L 2:24 PM CDT LABORATORIES - [facility] Bicarbonate, P 24 22 - 29 03/29/2019 [facility] mmol/L 2:24 PM CDT LABORATORIES [facility] Anion Gap, P 11 7 - 15 03/29/2019 [facility] 2:24 PM CDT LABORATORIES [facility] BUN (Blood Urea 17 6 - 21 03/29/2019 [facility] Nitrogen), P mg/dL 2:24 PM CDT LABORATORIES [facility] Creatinine 0.81 0.59 - 03/29/2019 [facility] 1.04 mg/dL 2:24 PM CDT LABORATORIES [facility] eGFR-Black/Afri >90 >=60 03/29/2019 [facility] can Bulgarian mL/min/BSA 2:24 PM CDT LABORATORIES [facility] Comment: ----ADDITIONAL INFORMATION---- Estimated GFR calculated using the 2009 CKD_EPI creatinine equation. eGFR Non-Black/ 82 >=60 mL/min/BSA 03/29/2019 2:24 PM [facility] Bulgarian CDT LABORATORIES [facility] Comment: ----ADDITIONAL INFORMATION---- Estimated GFR calculated using the 2009 CKD_EPI creatinine equation. Calcium, Total, P 8.7 8.6 - 10.0 mg/dL 03/29/2019 2:24 PM [facility] CDT LABORATORIES - [facility] Glucose, P 101 70 - 140 mg/dL 03/29/2019 2:24 PM [facility] CDT LABORATORIES - [facility] Specimen Anatomical Collection Method Collection Time Receive d Time (Source) Location / / Volume Laterality Blood (Blood, 03/29/2019 2:04 PM 03/29/20 2:08 Venous) CDT PM CDT Eliseo Mejias M.D. LAB BLOOD ADD-ON Performing Organization Address City/State/ZIP Code Phon e Number [facility] LABORATORIES - [address] [place] [address] [facility] documented in this encounter Visit Diagnoses [...] Childs RBrittonNBritton)1339 (Given - Provider: Sofie Sutton RBetsy) 1,000 mg, oral, Every 8 hours scheduled, [...] Be tween Consecutive Piggyback Medications, Starting on Clementnie 03/29/19 at 1726, Infuse at the same [...]
--- OUTSIDE RECORDS SUMMARY | 2022-08-17 07:04 | XMS_ITS | Encounter Summary ---
:1965 Author Organization [facility] Address [address] [place] [address] Care Team Providers Name Role Phone Unavailable Primary Care Provider Unavailable Reason for Visit Outpatient (Routine) - Closed Specialty Diagnoses / Procedures Referred By Contact Refer red To Contact Otorhinolaryngology Diagnoses Sinus Nose Disorder [facility] [address] [place] [address] Referral ID Status Reason Start Date Expiration Date Visits Requ ested Visits Authorized [id number] Closed 01/10/2019 01/10/2020 1 1 Encounter Details Date Type Department Care Team Description 03/01/2019 Comprehensive Visit Department of [place], Sinusit is Chronic (Primary Dx); Otorhinolaryngology in [place] , Sinus Nose Disorder [facility] [address] [facility] [address] [place] [address] [place] [phone] Social History Tobacco Use Types Packs/Day Years [...] you attend presybeterian or Patient refused 2021 taoist services? 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 Decongestion: no improvement with decongestion. Modified [place]: not performed. Rigid exam with a 30 [...] obtained. - Obtained outside operative reports from [place] - Discussed risks and benefits including but [...] Appointment Radiology Alfredo Herrera O.P.A.-C. [address] [place] [address] 09/06/2022 Office Visit Orthopedic Surgery Cyrus Polk M.D. [address] [place] [address] documented as of this encounter Visit Diagnoses Diagnosis Sinusitis Chronic - Primary Sinus Nose Disorder documented in this encounter
--- OUTSIDE RECORDS SUMMARY | 2022-08-17 07:04 | XMS_ITS | Encounter Summary ---
:1965 Author Organization [facility] Address [address] [place] [address] Care Team Providers Name Role Phone Unavailable [...] you attend shinto or Patient refused 2021 episcopalian services? Do [...] Appointment Radiology Alfredo Herrera O.P.A.-C. [address] [place] [address] 09/06/2022 Office Visit Orthopedic Surgery Cyrus Polk M.D. [address] [place] [address] documented as of this encounter Visit Diagnoses Not on filedocumented in this encounter
--- OUTSIDE RECORDS SUMMARY | 2022-08-17 07:05 | XMS_ITS | Encounter Summary ---
:1965 Author Organization [facility] Address [address] [place] [address] Care Team Providers Name Role Phone Unavailable [...] you attend taoist or Patient refused 2021 evangelical services? Do [...] Appointment Radiology Alfredo Herrera O.P.A.-C. [address] [place] [address] 09/06/2022 Office Visit Orthopedic Surgery Cyrus Polk M.D. [address] [place] [phone] documented as of this encounter Procedures Procedure [...] Pelvis with IV Contrast (09/02/2007 1:17 AM [facility]) Anatomical Region Laterality Modality Pelvis, Abdominal RST LOS N/A Computed Tomog chato Specimen (Source) Anatomical Collection Method Collection Time Re ceived Time Location / / Volume Laterality 09/02/2007 1:17 AM [facility] Addenda Addendum by Elmo Cabrera M.D. on 03/2007 11:40 PM [facility] APPENDED REPORT - 02-Sep-2007 01 :40:00 CT Abdomen w/ Contrast CT Pelvis W Contrast Appended to link all pertinent exams to report. ? Electronically signed by: ?? Mamta Cabrera M.D. 02-Sep-2007 01:40 Narrative 09/02/2007 1:40 AM [facility] Indications: ?R/O ABCESS, POSTOP ORIGINAL [...] Abdomen with IV Contrast (09/02/2007 1:17 AM [facility]) Anatomical Region Laterality Modality Abdomen, Abdominal RST LOS N/A Computed Tacos graphy Specimen (Source) Anatomical Collection Method Collection Time Re ceived Time Location / / Volume Laterality 09/02/2007 1:17 AM [facility] Addenda Addendum by Elmo Cabrera M.D. on 03/2007 11:40 PM [facility] APPENDED REPORT - 02-Sep-2007 01 :40:00 CT Abdomen w/ Contrast CT Pelvis W Contrast Appended to link all pertinent exams to report. ? Electronically signed by: ?? Mamta Cabrera M.D. 02-Sep-2007 01:40 Narrative 09/02/2007 1:40 AM [facility] Indications: ?R/O ABCESS, POSTOP ORIGINAL [...] by: Mamta Cabrera M.D. 02-Sep-2007 01:[address] PROCEDURES documented in this encounter Visit Diagnoses Not on filedocumented in this encounter
--- OUTSIDE RECORDS SUMMARY | 2022-08-17 07:05 | XMS_ITS | Encounter Summary ---
:1965 Author Organization [facility] Address [address] [place] [address] Care Team Providers Name Role Phone Unavailable [...] you attend adventist or Patient refused 2021 yazdanism services? Do [...] Appointment Radiology Alfredo Herrera O.P.A.-C. [address] [place] [address] 09/06/2022 Office Visit Orthopedic Surgery Cyrus Polk M.D. [address] [place] [address] documented as of this encounter Visit Diagnoses Not on filedocumented in this encounter
--- OUTSIDE RECORDS SUMMARY | 2022-08-17 07:05 | XMS_ITS | Encounter Summary ---
:1965 Author Organization [facility] Address [address] [place] [address] Care Team Providers Name Role Phone Unavailable [...] you attend hoahaoism or Patient refused 2021 mandaen services? Do [...] Appointment Radiology Alfredo Herrera O.P.A.-C. [address] [place] [address] 09/06/2022 Office Visit Orthopedic Surgery Cyrus Polk M.D. [address] [place] [phone] documented as of this encounter Procedures Procedure Name Priority Date/Time Associated Comments Diagnosis FL ESOPHAGRAM SINGLE Routine 08/24/2007 10:57 AM Results for this CONTRAST MST procedure are i n the results section. documented in this encounter Results [place] Esophagram (08/24/2007 10:57 AM [facility]) Anatomical Region Laterality Modality Gastro Intestinal, Abdominal RST LOS N/A Rad iographic Imaging Specimen (Source) Anatomical Collection Method Collection Time Re ceived Time Location / / Volume Laterality 08/24/2007 10:57 AM MST Narrative 08/24/2007 11:41 AM [facility] Indications: ?STATUS POST GASTRIC BYPASS ORIGINAL REPORT - 24-Aug-2007 11:41:00 Esophagus Gastrografin swallow demonstrates gastri c bypass with esophagojejunostomy. No evidence of leak. No obstruction. ?? This report has been electronically sign ed by Pérez Terjo MD on Aug 24 2007 11:40AM. Electronically [...]
--- OUTSIDE RECORDS SUMMARY | 2022-08-17 07:05 | XMS_ITS | Encounter Summary ---
:1965 Author Organization [facility] Address [address] [place] [address] Care Team Providers Name Role Phone Unavailable [...] you attend uatsdin or Patient refused 2021 mormonism services? Do [...] Appointment Radiology Alfredo Herrera O.P.A.-C. [address] [place] [address] 09/06/2022 Office Visit Orthopedic Surgery Cyrus Polk M.D. [address] [place] [address] documented as of this encounter Procedures Procedure [...]
--- OUTSIDE RECORDS SUMMARY | 2022-08-17 07:05 | XMS_ITS | Encounter Summary ---
:1965 Author Organization [facility] Address [address] [place] [address] Care Team Providers Name Role Phone Unavailable [...] you attend bahai or Patient refused 2021 caodaism services? Do [...] Appointment Radiology Alfredo Herrera O.P.A.-C. [address] [place] [address] 09/06/2022 Office Visit Orthopedic Surgery Cyrus Polk M.D. [address] [place] [address] documented as of this encounter Visit Diagnoses Not on filedocumented in this encounter
== END 2022-08-01 06:01 | disposition home or self-care (01) ==
LOC: AMB 08-17 06:43
PROVIDERS: PCP Family Medicine; Visit Provider Family Medicine
DX: R41.82 Altered mental status, unspecified (principal); R53.1 Weakness; Z91.81 History of falling
CPT/HCPCS: A0425; A0427

== ENCOUNTER 2022-08-01 06:30 | Emergency (ER) | payer MEDICARE, OTHER, SELFPAY ==
[2022-08-01] VITALS (23 sets, daily range): BP systolic 104–133; BP diastolic 70–85; PULSE 67–89; RESP 12–18; TEMP 36.7; O2SAT 89–99; BMI 27.3
--- OUTSIDE RECORDS SUMMARY | 2022-08-01 06:33 | XMS_ITS | Continuity of Care Document ---
:1965 Author Organization [facility] Address [address] [place] [address] Phone Care Team Providers Name Role Phone [...] rs Description For Visit Copied on Encounter [facility] [place] Referring [facility] Information -2007 Su. Provider : Arthur [address] [place], [address], [address] [facility], [place], [place], [place], [id number], [place], [id number], . [address]. tel:[phone] tel:[phone] tel:[phone] [facility] Sun Blurred No Adalberto Referring [facility] Information -2007 Deep. Provider: Arthur, (chief [address]) [address] [facility], [address], [place], [place], [place], [place], [place], [place], [id number], [place], [id number], . [address]. tel:[phone] tel:[phone] tel:[phone] Family History Family Member Type Diagnosis Age At Onset No Information Payers Payer name Insurance type Covered alliance party ID Authorization(s ) No Information Social [...]
--- OUTSIDE RECORDS SUMMARY | 2022-08-01 06:33 | XMS_ITS | Continuity of Care Document ---
:1965 Author Organization [facility] Address [address] [place] [address] Care Team Providers Name Role Phone [facility] Unavailable Unavailable Procedures Procedure Date IMPLANT [...] Visit Copied on Encounter [facility] Provider: Surgery Surgery Surgery [facility]. David, [address], [place], [place], [place] [id number], [place], [place], , [place] [id number], [id number]. [place]. tel: [phone] [facility] No Twin Referring [address] Provider: Surgery Surgery Surgery [facility]. David, [address], [place], [place] [id number], [place], [place], , [place] [id number], [id number]. [place]. tel: [phone] [facility] No Twin [address] Provider: Surgery Surgery Surgery [facility]. Jose [address] [facility] [address], [facility], [place], [place] , [place], [id number], [place], [address]. [place] [id number], tel: [phone] tel:[phone] Family History Family Member Type Diagnosis Age At Onset No Information Payers Payer name Insurance type Covered constitution party ID Authorization(s ) Medicare [id number] Medica [facility] [id number] Social History Type Description Quantity Date Captured [...]
--- OUTSIDE RECORDS SUMMARY | 2022-08-01 06:33 | XMS_ITS | Continuity of Care Document ---
:1965 Author Organization [facility] Address [address] [place] [address] Care Team Providers Name Role Phone Mor Singleton CRNA Unavailable Unavailable Procedures Procedure Date ANESTH, HEAD/NECK/PTRUNK ANESTH PERC IMG TX SP PROC ANESTH PERC IMG TX SP PROC Advance Directives Directive Yes / No Effective Date File Name No Information Encounters Encounter Practice Location Reason(s) Diagnoses Date Provider Provide rs Description For Visit Copied on Encounter [facility] No Areli Referring [facility] Mor. Provider: Lois CISNEROS Surgery [address] [place] [address], [facility] [address] [place] [id number], [facility], [place], [place], [place], [place], [id number], [id number] [place]. . tel:[phone] tel:[phone] [facility] Referring Anesthesia [facility] -2019 [place]. Provider: Lois CISNEROS Surgery [address] [facility], [facility] [place], [address] [id number], [id number], [facility]. [facility] tel:[phone] [place], [place], [address] . tel:[phone] [facility] Referring Anesthesia [facility] -2019 [place]. Provider: PA, [address] [facility] [address], [place], Endy J, [place], [place], [place], [address] [facility] [id number], [id number], John, [facility]. Denisa tel:[phone] s, [place], [id number] . tel:[phone] Family History Family Member Type Diagnosis Age At Onset No Information Payers Payer name Insurance type Covered green party ID Authorization(s ) Medicare MB [id number] Medica [facility] [id number] Social History Type Description Quantity Date Captured [...]
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
--- OUTSIDE RECORDS SUMMARY | 2022-08-01 06:33 | XMS_ITS | Continuity of Care Document ---
:1965 Author Organization [facility] Address [address] [place] [address] Phone Care Team Providers Name Role Phone [...] rs Description For Visit Copied on Encounter [facility] No Information Nov- ZProvider [facility] 6[address] [place] 4 . . Rheumatolo gy, [address] [facility], [place], [place], [id number], [place] tel:[phone] [facility] TOBACCO USE Apr-1 Michele Arthritis DISORDEROBESITY 8[address] [place]. And NOSOSTEOPOROSIS NOS [address], gy, [address], [place], [id number], [place], [place]. [id number], tel:[phone] tel:[phone] [facility] Age-related Apr-0 ZProvider [facility] osteoporosis w/o 7[address] [facility] [place] current 4 . . Rheumatolo pathological gy, [address] [place] [address], [id number], [place] tel:[phone] [facility] OBESITY NOSTOBACCO Mar-2 ZProvider Arthritis USE [address] And DISORDEROSTEOPOROSI 4 . . Rheumatolo S NOSMALAISE AND gy, [address], [place], [place], [id number], [place] tel:[phone] [place] NEPTALI [place] Tobacco useObesity, Mar-2 Michele Arthritis unspecifiedAge-rela Nara. And mary osteoporosis 4 [address]o [address], gy, [address] [place], [address], [place], [place], [id number], [place], [place]. [id number], tel:[phone] tel:[phone] Family History Family Member Type Diagnosis Age At Onset Problem (finding) Mother Problem (finding) The patient reports no changes except otherwise noted during the prese nt visit Problem (finding) Father living Problem (finding) Osteoporosis Problem (finding) Number of Sisters Problem (finding) Number of Brothers Payers Payer name Insurance type Covered constitution party ID Authorization(s ) No Information Social [...]
--- OUTSIDE RECORDS SUMMARY | 2022-08-01 06:33 | XMS_ITS | Continuity of Care Document ---
:1965 Author Organization [facility] Address [address] [address] [place] [address] Phone Care Team Providers Name Role Phone Nilay Perry MD Unavailable Unavailable Advance Directives Directive Yes / No Effective Date File Name No Information Encounters Encounter Practice Location Reason(s) Diagnoses Date Provider Provide rs Description For Visit Copied on Encounter [facility] No Orlando FAULKNER Referring [facility] Nilay. Provider: [facility] [place] [address] [facility] [address], Fredis DILLON MD, [address] [facility] [address], [place], [place], [facility] [address], [id number], [place], [place], [facility] [id number], [place], [address]. tel:[phone] . tel:[phone] tel:[phone] Family History Family Member Type Diagnosis Age At Onset No Information Payers Payer name Insurance type Covered alliance party ID Authorization(s ) [place] [employer] [place] [id number] Social History Type Description Quantity Date Captured [...]
--- OUTSIDE RECORDS SUMMARY | 2022-08-01 06:34 | XMS_ITS | Clinical Summary ---
:1965 Author Organization [place] Address [facility] [place] [address] Care Team Providers Name Role Phone Clinic, [facility] Primary Care Provide r Allergies Active Allergy Reactions Severity Noted Date Comments Acyclovir Rash Low 07/18/2016 Adhesive Tape 07/18/2016 Amoxicillin 07/18/2016 Benzoin Blisters 10/13/2017 Cephalosporins Rash Low 10/13/2017 Gabapentin 05/17/2017 Soy Allergy 10/13/2017 [place] Rash Low 10/13/2017 Sulfamethoxazole-Trimethoprim GI Disturbance 7 [...] breath / dyspnea or wheezing naloxone (NARCAN) Osborne 4 mg into 0 Active nasal spray [...] (Takes 2 x 5000 unit tablet = 10986 unit dose) Esomeprazole Magnesium Take 40 mg [...] CDT Respiratory Rate 16 10/14/2017 4:28 PM CONDUCTOR/BRAKEMAN Oxygen Saturation 98% 10/14/2017 4:28 PM CONDUCTOR/BRAKEMAN Inhaled Oxygen Concentration - - Weight 74.8 [...] this topic Medical Devices Implanted Type Area Campaign Advisor Device Shelf Model / Identifier Expiration Serial / Date Lot Device Tvt Obturator Laser [id number] Other N/A: [employer] 04/27/2018 [id number] / Implanted: Qty: 1 on 10/14/2017 by Rain Herring MD at [facility]- / [id number] Insurance Payer Benefit Plan / Subscriber ID Effective Dates Phone Addre ss Type Group MEDICARE MEDICARE [id number] 2012-Prese [phone] ATTN [facility] Medicare nt 0 [address] [place] [address] MEDICA MEDICA ACCESS [id number] 2016-Presen [phone] [address] [address] HMO ABILITY MA t [address] [place] [address] Care Teams 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 PCP - General 06/03/171999 [place] [address]
--- OUTSIDE RECORDS SUMMARY | 2022-08-01 06:34 | XMS_ITS | Encounter Summary ---
:1965 Author Organization [place] Address [address] 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 Sh Periop Services Procedures CYSTOSCOPY, SLING TRANSVAGINAL [address] [place] [address] Phone: Referral ID Status Reason Start Date Expiration Date Visits Requ ested Visits Authorized [id number] 1 1 Encounter Details Date Type Department Care Team Description 10/14/2017 Anesthesia Event [facility] SruthiEri rosa MD [facility] ANESTHESIA [address] [place] [address] [facility] PeriOP Gayatri Combs, PRIVATE SECTOR EXECUTIVE PRINTED CIRCUIT BOARDS PINNER [address] [place] [address] Services [address] [place] [address] Anesthesia Record Procedure Summary Procedure Name [...] Gayatri Combs, Vicki Collins D, Injectable; Tolerated PRINTED CIRCUIT BOARDS PINNER RN well Retired Non-Surgical 10/14/17; 1254; Easy; 10/14/17 1254 by 09/28 06/13 1328 by Airway Intravenous; 4; mm; Gayatri Combs, PRIVATE SECTOR EXECUTIVE Gayatri Combs, laryngeal mask airway; PRINTED CIRCUIT BOARDS PINNER PRIVATE SECTOR EXECUTIVE PRINTED CIRCUIT BOARDS PINNER midline; Equal, clear and bilateral; PRINTED CIRCUIT BOARDS PINNER; hh Urethral Catheter 10/14/17; 1314; No; 10/14/17 1314 by 10/14/17 1316 by /GI/HEALTH SCIENCES PROGRAM COORDINATOR Pelvic Usha Bar, Carole Duff, Procedure; 16 [...] MD, MD October 14, 2017 1:50 PM OUT MAN Anesthesia Preprocedure Evaluation - Mini Negro MD [...] SURGERY ??? BACK SURGERY ??? CHOLECYSTECTOMY ??? HEALTH SCIENCES PROGRAM COORDINATOR SURGERY ??? ORTHOPEDIC SURGERY Social History Substance [...] (Takes 2 x 5000 unit tablet = 84206 unit dose) Yes Reported, Patient Esomeprazole Magnesium [...] Yes Reported, Patient naloxone (NARCAN) nasal spray Wiley 4 mg into one nostril alternating nostrils [...] Reported, Patient Current Facility-Administered Medications Ordered in [facility] Medication Dose Route Frequency Last Rate Last Dose ??? Provider ordered ALTERNATE pre op antibiotic. 1 each As instructed Continuous ??? ciprofloxacin (CIPRO) infusion 400 mg 400 mg Intravenous Pre-Op/Pre-procedure x 1 dose No current [facility]-ordered outpatient prescriptions on file. ??? Another [...] GLC, BUN, CR, ROGER in the last [id number]. No results for input(s): AST, ALT, ALKPHOS, BILITOTAL, LIPASE in the last 55252 hours. No results for input(s): WBC, HGB, PLT in the last 10013 hours. No results for input(s): ABO, RH in the last 24882 hours. No results for input(s): INR, PTT in the last 65470 hours. No results for input(s): TROPI in the last 91889 hours. No results for input(s): PH, PCO2, PO2, HCO3 in the last 11467 hours. No results for input(s): HCG in the last 10130 hours. No results found for this or any previous visit (from the past 744 hour(s)). RECENT LABS: ECG: ECHO: OUT MAN documented in this encounter Miscellaneous Notes Anesthesia [...] APRN CRNA October 14, 2017 1:34 PM OUT MAN documented in this encounter Plan of Treatment Not on filedocumented as of this encounter Visit Diagnoses Not on filedocumented in this encounter Administered Medications Inactive Administered Medications - up to 3 most recent administrations Medication Order MAR Action Action Date Dose Rate Site ciprofloxacin (CIPRO) infusion Given 10/14/2017 12:59 PM DRAG OUT MAN 400 mg 400 mg Routine, 400 mg, Intravenous, PRE-OP/PRE-PROCEDURE, Starting on Tue10/14/17 at 1155, For 1 dose, Irritant., Indications: Perioperative Pharmacoprophylaxis, Pre-procedure New Bag 10/14/2017 12:26 PM DRAG OUT MAN 400 mg dexamethasone (DECADRON) injection Given 10/14/2017 1:03 PM DRAG OUT MAN 4 mg PRN, Administer over 1 Minutes, Starting on Tue10/14/17 at 1303, Anesthesia Intra-op dexmedetomidine (PRECEDEX) 4 mcg/mL bolu s Bolus 10/14/2017 1:08 PM DRAG OUT MAN 8 mcg 200 mcg, CONTINUOUS PRN, Starting on Tue10/14/17 at 1305, Anesthesia Intra-op New Bag 10/14/2017 1:05 PM DRAG OUT MAN 12 mcg fentaNYL (PF) (SUBLIMAZE) injection Given 10/14/2017 12:52 PM DRAG OUT MAN 100 mcg PRN, moderate to severe pain, Administer over 3-5 Minutes, Starting on Tue10/14/17 at 1252, Anesthesia Intra-op lactated ringers infusion New Bag 10/14/2017 12:51 PM DRAG OUT MAN Intravenous, CONTINUOUS PRN, Anesthesia Intra-op, Starting on Tue10/14/17 at 1251, Until Tue10/14/17 at 1334 lidocaine injection 2% (MDV) Given 10/14/2017 12:52 PM DRAG OUT MAN 80 mg PRN, Starting on Tue10/14/17 at 1252, Anesthesia Intra-op midazolam (VERSED) injection Given 10/14/2017 12:51 PM DRAG OUT MAN 2 mg Administer over 2 Minutes, PRN, anxiety, Starting on Tue10/14/17 at 1251, Anesthesia Intra-op ondansetron (ZOFRAN) injection Given 10/14/2017 1:03 PM DRAG OUT MAN 4 mg PRN, nausea, vomiting, Administer over 2-5 Minutes, Starting on Tue10/14/17 at 1303, Anesthesia Intra-op propofol (DIPRIVAN) infusion Rate/Dose 10/14/2017 1:14 150 mcg/kg/min 66.5 mL/hr Intravenous, CONTINUOUS PRN, Change PM DRAG OUT MAN Starting on Tue10/14/17 at 1252, Anesthesia Intra-op New Bag 10/14/2017 12:52 PM DRAG OUT MAN 200 mcg/kg/min 88.7 mL/hr propofol (DIPRIVAN) injection 10 mg/mL v ial Given 10/14/2017 1:06 PM DRAG OUT MAN 50 mg PRN, Starting on Tue10/14/17 at 1252, Anesthesia Intra-op Given 10/14/2017 12:52 PM DRAG OUT MAN 150 mg documented in this encounter Care Teams Senior Instructional Designer Relationship Specialty Start Date End Date Clinic, [facility] PCP - General 06/03/171999 [place] [address] documented as of this encounter
--- OUTSIDE RECORDS SUMMARY | 2022-08-01 06:34 | XMS_ITS | Encounter Summary ---
:1965 Author Organization [place] Address [address] [place] [address] Care Team Providers Name Role Phone Clinic, [facility] Primary Care Provide r Encounter Details Date Type Department Care Team Description 03/20/2021 Records - [facility], [facility] [address] [place] [address] [phone] Social History Tobacco Use Types Packs/Day Years [...] Bacterial Culture Routine (03/20/2021 6:00 AM CDT) [facility] Method Time Signature Culture STAPHYLOCOCCUS 03/27/2021 [facility] EPIDERMIDIS (A) 8:01 AM CDT [facility] Comment: Staphylococcus epidermidis Isolated from broth only Gram Stain 4+ Polymorphonuclear 03/27/2021 8:01 AM HEALTH Result leukocytes [facility]T [facility] Gram Stain No organisms seen 03/27/2021 8:01 AM [facility]ALTH Result CDT [facility] Specimen Anatomical Collection Method [...] MICRO GENERAL ORDERABL ES Performing Organization Address City/[facility] [place] [address] [address] [facility] Anaerobic Bacterial Culture Routine (03/20/2021 6:00 AM CDT) [facility] Method Time Signature Culture No anaerobic 03/23/2021 HEALTH organisms 7:18 AM CDT [facility] Specimen Anatomical Collection Method Collection Time Receive d Time (Source) Location / / Volume Laterality Body fluid Non-blood 03/20/2021 6:00 AM 1 sample Collection / CDT 12:05 PM CDT (specimen) Unknown [facility] - MICRO GENERAL ORDERABL ES Performing Organization Address City/[facility]/[place] [address] [address] [facility] (ABNORMAL) Cell count with differential fluid (03/20/2021 6:00 AM CDT) [facility] Method Time Signature Color Red 03/20/2021 [facility] 2:04 PM CDT [facility] Clarity Turbid 03/20/2021 [facility] 2:04 PM CDT [facility] Total Nucleated 42,864 (H) 0 - 99 03/20/2021 [facility] Cells /uL 2:04 PM CDT [facility] RBC, Fluid >50,000 <50,000 03/20/2021 [facility] (A) /ul 2:04 PM CDT [facility] % Neutrophils 91 (H) <=25 % 03/20/2021 [facility] 2:04 PM CDT [facility] % Lymphocytes 8 <=78 % 03/20/2021 [facility] 2:04 PM CDT [facility] Monocyte % 1 <=71 % 03/20/2021 [facility] 2:04 PM CDT [facility] Macrophage % 03/20/2021 [facility] 2:04 PM CDT [facility] Mesothelials, 03/20/2021 [facility] Fluid 2:04 PM CDT [facility] % Eosinophils 03/20/2021 [facility] 2:04 PM CDT [facility] % Other Cells 03/20/2021 [facility] 2:04 PM CDT [facility] Specimen Anatomical Collection Method Collection Time Receive d Time (Source) Location / / Volume Laterality Body fluid BODY FLUID SAMPLE Non-blood 03/20/2021 6:00 AM 02/27 sample / Unknown Collection / CDT 12:05 PM CDT (specimen) Unknown Narrative [facility] - 03/20/2021 2:04 PM CDT Large clot present; count may be inaccur ate. [facility] - BODY FLUIDS ORDERABLES Performing Organization Address City/State/ZIP Code Phon [place] [address] [place] [facility] [address] [place] [id number] [place] [address] [place] [address], [facility] [phone] documented in this encounter Visit Diagnoses Not on filedocumented in this encounter Care Teams Driller And Broacher Relationship Specialty Start Date End Date Clinic, [facility] PCP - General 06/03/171999 [place] [address] documented as of this encounter
--- OUTSIDE RECORDS SUMMARY | 2022-08-01 06:34 | XMS_ITS | Encounter Summary ---
:1965 Author Organization [place] Address [address] [place] [address] Care Team Providers Name Role Phone [facility], [facility] Primary Care Provide r Encounter Details Date Type Department Care Team Description [facility] ProviderAlea Social History Tobacco [...] on filedocumented in this encounter Care Teams Fabrication Inspector Relationship Specialty Start Date End Date [facility] PCP - General 06/03/171999 [place] [address] documented as of this encounter
--- OUTSIDE RECORDS SUMMARY | 2022-08-01 06:34 | XMS_ITS | Encounter Summary ---
:1965 Author Organization [place] Address [address] [place] [address] Care Team Providers Name Role Phone [facility] Primary Care Provide r Encounter [...] on filedocumented in this encounter Care Teams Edge Finisher Relationship Specialty Start Date End Date [facility] PCP - General 06/03/171999 [place] [address] documented as of this encounter
--- OUTSIDE RECORDS SUMMARY | 2022-08-01 06:34 | XMS_ITS | Encounter Summary ---
:1965 Author Organization [place] Address [facility] [place] [address] Care Team Providers Name Role Phone [facility] Primary Care Provide r Mor Bautista MD [...] on filedocumented in this encounter Care Teams Railroad Carman Relationship Specialty Start Date End Date [facility], [facility] PCP - General 06/03/17 [facility] [address] [place] [address] Mor Bautista MD Assigned Infectious Disease 06/12/2106/25 [facility] Mohan Porter Provider [address] [place] [address] documented as of this encounter
--- OUTSIDE RECORDS SUMMARY | 2022-08-01 06:34 | XMS_ITS | Continuity of Care Document ---
:1965 Author Organization [facility] Address [address] [place] [address] Phone Care Team Providers Name Role Phone [...] CAPSULE oral route 4 times every day Wellbutrin XL 150 mg take 1 tablet by 150 MG - Active 24 hr tablet, oral route every extended release day Valium 10 mg tablet take 1/2 [...] then swallow polyethylene glycol take (17G) by - Active 3350 17 gram/dose oral route [...] 4/day, for chronic pain Procedures Procedure Date Foll-up eval q3mo opiod tx OFFICE VISIT, [...] GENERATOR FLUOROGUIDE FOR SPINE INJECTION SCS PreSurgery [place] Production OFFICE/OUTPATIENT VISIT, EST No Charge For Visit Per Prov Lower Back LSO Brace ORTHOTIC MGMT AND TRAINING Initial Encounter 18 IMPLANT NEUROELECTRODES ASC IMPLANT NEUROELECTRODES ASC FLUOROGUIDE FOR SPINE INJECTION Implt neurostim elctr each OFFICE/OUTPATIENT VISIT, EST SCS PreTrial [place] Production OFFICE/OUTPATIENT VISIT, EST OFFICE/OUTPATIENT VISIT, EST [...] For Visit Copied on Encounter OFFICE VISIT, [facility] Back Pain Anxiety disorder, Ka ngas [facility] (chief unspecifiedChronic 0-202 [place]. TELEMEDICINE Pain [place] complaint) migraine without 2 [address] [facility], aura, intractable, John, [address] without status [place], migrainosusOsteoar is, [place], [place], thritisPain in [id number] [place], left shoulderPain , [place]. [id number] in left hipPain in tel:+ , [place] right hipPain in [id number] tel:+ left kneePain in [id number] right kneeOther spondylosis, cervical regionOther spondylosis, lumbar regionRadiculopath y, lumbar regionPain in thoracic spineFibromyalgiaP ostlaminectomy syndrome, not elsewhere classifiedLong term (current) use of opiate analgesic OFFICE VISIT, [facility] Back Pain OsteoarthritisChro K [facility] (chief saul migraine [place]. Provide r: TELEMEDICINE Pain [place] complaint) without aura, 2 [facility], intractable, John, Will J, [address] without status [place] [address] John, migrainosusAnxiety is, [place], John, Caterina, disorder, [id number] [place], unspecifiedPain in , [place]. s, [place] , [id number] left shoulderPain tel: [phone] , [place] in left hipPain in 61603612 . tel: right hipPain in tel:2 [phone] left kneePain in 552730 5 right kneeOther spondylosis, cervical regionOther spondylosis, lumbar regionRadiculopath y, lumbar regionPain in thoracic spinePostlaminecto my syndrome, not elsewhere classifiedFibromya lgiaLong term (current) use of opiate analgesic OFFICE VISIT, [facility] Back Pain Pain in left [facility] (chief shoulderAnxiety [place]. TELEMEDICINE Pain [place] complaint) disorder, 2 [address] [facility], unspecifiedChronic John, [address] migraine without [place], aura, intractable, is, [place], C[place], without status [id number] [place], migrainosusOsteoar , [place]. [id number] thritisPain in tel: , [place] right hipPain in [id number] tel: left hipPain in 26757846 left kneePain in right kneeOther spondylosis, cervical regionOther spondylosis, lumbar regionRadiculopath y, lumbar regionPain in thoracic spinePostlaminecto my syndrome, not elsewhere classifiedFibromya lgiaLong term (current) use of opiate analgesic OFFICE VISIT, [facility] Back Pain Pain in left [facility] (chief hipAnxiety [place]. TELEMEDICINE Pain [place] complaint) disorder, 2 [address] [facility], unspecifiedChronic John, [address] migraine without [place], aura, intractable, is, [place], [place], without status [id number] [place], migrainosusOsteoar , US. [id number] thritisPain in tel: , US left shoulderPain [id number] tel: in right hipPain [id number] in left kneePain in right kneeOther spondylosis, cervical regionOther spondylosis, lumbar regionRadiculopath y, lumbar regionPain in thoracic spineFibromyalgiaP ostlaminectomy syndrome, not elsewhere classifiedLong term (current) use of opiate analgesic [facility] No Information [facility] [place]. Pain Caterina 2 [address] [facility], John, [address] [place], is, [place], [place], [id number] [place], , [place]. [id number] tel: , [place] [id number] tel: [phone] OFFICE/OUTPAT [facility] Back Pain Anxiety disorder, Ka [facility] Referring IENT VISIT, [facility] (chief unspecifiedChronic [place] . Provider: EST Pain [place] complaint) migraine without 2 [address] [facility], aura, intractable, John, Will J, [address] without status [place] [address] John, migrainosusOsteoar is, [place], John, [place], thritisPain in [id number] [place], left shoulderPain , [place]. s, [place], [id number] in left hipPain in tel: [phone] , [place] right hipPain in 50342350 . tel: left kneePain in tel:2 [phone] right kneeOther [id number] spondylosis, cervical regionOther spondylosis, lumbar regionRadiculopath y, lumbar regionPain in thoracic spineFibromyalgiaP ostlaminectomy syndrome, not elsewhere classifiedLong term (current) use of opiate analgesic OFFICE VISIT, [facility] Chronic migraine Jan- Jens gas [facility] (chief without aura, [place]. TELEMEDICINE Pain [place] complaint) intractable, 2 [address] [facility], without status John, [address] migrainosusAnxiety [place], disorder, is, [place], [place], unspecifiedOsteoar [id number] [place], thritisPain in , US. 283121653 left shoulderPain tel: , [place] in right hipPain [id number] tel: in left hipPain in 48252613 right kneePain in left kneeOther spondylosis, cervical regionOther spondylosis, lumbar regionRadiculopath y, lumbar regionPain in thoracic spineFibromyalgiaP ostlaminectomy syndrome, not elsewhere classifiedLong term (current) use of opiate analgesic [facility] No Information [facility] [place]. Provider: Pain [place] 2 [address] [facility], John Will J, [address] [place] [address] John, is, [place], John, [place], [id number] [place], , [place]. s, [place], [id number] tel: [phone] , [place] [id number] . tel: tel: [phone] OFFICE VISIT, [facility] Back Pain Radiculopathy, [facility] (chief lumbar [place]. TELEMEDICINE Pain [place] complaint) regionPostlaminect 2 [address] [facility], marquis syndrome, not John, [address] elsewhere [place] John, classifiedPain in is, [place], [place]ina, left hipAnxiety [id number] [place], disorder, , [place]. [id number] unspecifiedPain in tel: , US thoracic [id number] tel: spineOsteoarthriti [phone] sChronic migraine without aura, intractable, without status migrainosusPain in right hipPain in left shoulderPain in right kneePain in left kneeFibromyalgiaOt her spondylosis, lumbar regionOther spondylosis, cervical regionLong term (current) use of opiate analgesicEncounter for therapeutic drug level monitoring OFFICE VISIT, [facility] Back Pain Radiculopathy, [facility] (chief lumbar [place]. Provider: TELEMEDICINE Pain [place] complaint) regionPostlaminect 2 [address] [facility], marquis syndrome, not John, Will J , [address] elsewhere [place] [address] John classifiedPain in is, [place], John, [place], left hipAnxiety [id number] Augusta fischer [place], disorder, , [place]. s, [place], 655230382 unspecifiedPain in tel: [phone] , [place] thoracic [id number] . tel: spineOsteoarthriti tel : [phone] sChronic migraine 69886 45 without aura, intractable, without status migrainosusPain in right hipPain in left shoulderPain in right kneePain in left kneeFibromyalgiaOt her spondylosis, lumbar regionOther spondylosis, cervical regionLong term (current) use of opiate analgesic OFFICE VISIT, [facility] Radiculopathy, [facility] Referring [facility] (chief lumbar [place]. Provider: TELEMEDICINE Pain [place] complaint) regionPostlaminect 2 7235 [facility], marquis syndrome, not Endy Lopez J , [address] elsewhere [place] [address] John classifiedPain in is, [place], John, [place], left hipAnxiety [id number] Augusta fischer [place], disorder, , [place]. s, [place], 341271241 unspecifiedPain in tel: [phone] , [place] thoracic [id number] . tel: spineOsteoarthriti tel : [phone] sChronic migraine 39021 45 without aura, intractable, without status migrainosusPain in right hipPain in left shoulderPain in right kneePain in left kneeFibromyalgiaOt her spondylosis, lumbar regionLong term (current) use of opiate analgesicOther spondylosis, cervical region OFFICE VISIT, [facility] Back Pain Radiculopathy, [facility] (chief lumbar [place]. TELEMEDICINE Pain [place] complaint) regionPostlaminect 1 [address] [facility], marquis syndrome, not John, [address] elsewhere [place] John classifiedPain in is, [place], [place], left hipAnxiety [id number] [place], disorder, , [place]. [id number] unspecifiedPain in tel: , [place] thoracic [id number] tel: spineOsteoarthriti [phone] sChronic migraine without aura, intractable, without status migrainosusPain in right hipPain in left shoulderPain in right kneePain in left kneeFibromyalgiaOt her spondylosis, lumbar regionLong term (current) use of opiate analgesicOther spondylosis, cervical region OFFICE/OUTPAT [facility] Other spondylosis, shlomo Referring IENT VISIT, [facility] (chief cervical [place]. Provide r: EST Pain [place] complaint) regionRadiculopath 1 [address] [facility], y, lumbar John, Will J, [address] regionPostlaminect [place] [address] John, marquis syndrome, not is, [place], John, [place]ina, elsewhere [id number] [place], classifiedPain in , [place]. s, MN, 959226132 left hipAnxiety tel: [phone] , [place] disorder, 52177515 . tel: unspecifiedPain in tel :2 [phone] thoracic 8569604 spineOsteoarthriti sChronic migraine without aura, intractable, without status migrainosusPain in right hipPain in left shoulderPain in right kneePain in left kneeFibromyalgiaOt her spondylosis, lumbar regionLong term (current) use of opiate analgesic OFFICE VISIT, [facility] Pain Other spondylosis, anglucrecia EST [facility] (chief cervical [place]. TELEMEDICINE Pain [place] complaint) regionRadiculopath 1 [address] [facility], y, lumbar John, [address] regionPostlaminect [place] John, marquis syndrome, not is, [place], [place], elsewhere [id number] [place], classifiedPain in , US. [id number] left hipAnxiety tel: , [place] disorder, [id number] tel: unspecifiedPain in 40414486 thoracic spineOsteoarthriti sChronic migraine without aura, intractable, without status migrainosusPain in right hipPain in left shoulderPain in right kneePain in left kneeFibromyalgiaOt her spondylosis, lumbar regionLong term (current) use of opiate analgesic OFFICE VISIT, [facility] Other spondylosis, Sep- K shlomo Referring [facility] (chief cervical [place]. Provider: TELEMEDICINE Pain [place] complaint) regionRadiculopath 1 [address] [facility], y, lumbar John, Will J, [address] regionPostlaminect [place] 7 [address] John, marquis syndrome, not is, [place], John, [place]ina, elsewhere [id number] [place], classifiedPain in , [place]. s, [place], 461957186 left hipAnxiety tel: [phone] , [place] disorder, 15776810 . tel: unspecifiedPain in tel : [phone] thoracic 9724760 spineOsteoarthriti sChronic migraine without aura, intractable, without status migrainosusPain in right hipPain in left shoulderPain in right kneePain in left kneeFibromyalgiaOt her spondylosis, lumbar regionLong term (current) use of opiate analgesic [facility] Encounter for Mario Referr ing [facility] therapeutic drug [place]. Pro vider: Pain [place] level 1 7235 [facility], monitoringLong John, Will J, [address] term (current) use [place] [address] John, of opiate is, [place], John, [place], analgesic [id number] [place], , [place]. s, [place], 136416506 tel: [phone] , [place] [id number] . tel: tel: [phone] OFFICE/OUTPAT [facility] Back Pain Other spondylosis, Aug-0 K shlomo Referring IENT VISIT, [facility] (chief lumbar [place]. Provider : EST Pain [place] complaint) regionFibromyalgia 1 [address] [facility], Pain in left John, Will J, [address] kneePain in right [place] 72 [address] John, kneePain in left is, [place], John, Caterina, shoulderPain in 655984632 [place], right hipChronic , [place]. s, [place], 284101984 migraine without tel:+ [phone] , [place] aura, intractable, [id number] . tel: without status tel:+ [phone] migrainosusOsteoar 8412 345 thritisPain in thoracic spineAnxiety disorder, unspecifiedPain in left hipPostlaminectomy syndrome, not elsewhere classifiedRadiculo shane, lumbar regionOther spondylosis, cervical regionLong term (current) use of opiate analgesicEncounter for therapeutic drug level monitoring OFFICE VISIT, [facility] Pain Other spondylosis, [facility] Referring [facility] (chief lumbar [facility]. Provider: TELEMEDICINE Pain [place] complaint) regionFibromyalgia 1 [address] [facility], Pain in left John, Will J, [address] kneePain in right [place] 72 [address] John, kneePain in left is, [place], John, [place], shoulderPain in [id number] Augusta fischer [place], right hipChronic , [place]. s, [place], 503386756 migraine without tel:+ [phone] , [place] aura, intractable, 68415249 . tel: without status tel: [phone] migrainosusOsteoar 8412 345 thritisPain in thoracic spineAnxiety disorder, unspecifiedPain in left hipPostlaminectomy syndrome, not elsewhere classifiedRadiculo shane, lumbar regionOther spondylosis, cervical regionLong term (current) use of opiate analgesic OFFICE VISIT, [facility] Other spondylosis, Kanu0 K [facility] Referring [facility] (chief lumbar [facility]. Provider: TELEMEDICINE Pain [place] complaint) regionFibromyalgia 1 [facility] [facility], Pain in left John, Will J, [address] kneePain in right [place] 72 [address] John, kneePain in left is, [place], John, Caterina, shoulderPain in [id number] [place], right hipChronic , [place]. s, [place], 262848249 migraine without tel:+ [phone] , [place] aura, intractable, 28380589 . tel: without status tel: [phone] migrainosusOsteoar 8412 345 thritisPain in thoracic spineAnxiety disorder, unspecifiedPain in left hipPostlaminectomy syndrome, not elsewhere classifiedRadiculo shane, lumbar regionOther spondylosis, cervical regionLong term (current) use of opiate analgesic OFFICE VISIT, [facility] Other spondylosis, [facility] Referring [facility] (chief lumbar 5-202 [place]. Provider: TELEMEDICINE Pain [place] complaint) regionFibromyalgia 1 [address] [facility], Pain in left John, Will J, [address] kneePain in right [place] 72 [address] John, kneePain in left is, [place], John, Caterina, shoulderPain in [id number] [place], right hipChronic , [place]. s, MN, 822842504 migraine without tel: [phone] , [place] aura, intractable, [id number] . tel: without status tel: [phone] migrainosusOsteoar 8412 345 thritisPain in thoracic spineAnxiety disorder, unspecifiedPain in left hipPostlaminectomy syndrome, not elsewhere classifiedRadiculo shane, lumbar regionOther spondylosis, cervical regionLong term (current) use of opiate analgesic [facility] Other spondylosis, March- Mario Referring [facility] (chief lumbar 4-202 [place]. Provider: Pain [place] complaint) regionFibromyalgia 1 [address] [facility], Pain in left John, Will J, [address] kneePain in right [place] [address] John, kneeChronic is, [place], John, [place], migraine without [id number] [place], aura, intractable, , [place]. s, [place] , 288319218 without status tel: [phone] , [place] migrainosusPain in 82916674 . tel: right hipPain in tel: [phone] left shoulderPain 05504 45 in right shoulderOsteoarthr itisPain in thoracic spineAnxiety disorder, unspecifiedPain in left hipPostlaminectomy syndrome, not elsewhere classifiedRadiculo shane, lumbar regionOther spondylosis, cervical regionLong term (current) use of opiate analgesic OFFICE VISIT, [facility] Other spondylosis, Mar-2 K angas Referring [facility] (chief lumbar [place]. Provider: TELEMEDICINE Pain [place] complaint) regionFibromyalgia 1 [address] [facility], Pain in left John, Will J, [address] kneePain in right [place] [address] John, kneeChronic is, [place], John, [place], migraine without [id number] [place], aura, intractable, , [place]. s, [place] , [id number] without status tel: [phone] , [place] migrainosusPain in 83530414 . tel: right hipPain in tel:2 [phone] left shoulderPain 03628 45 in right shoulderOsteoarthr itisPain in thoracic spineAnxiety disorder, unspecifiedPain in left hipPostlaminectomy syndrome, not elsewhere classifiedRadiculo shane, lumbar regionOther spondylosis, cervical regionLong term (current) use of opiate analgesic OFFICE VISIT, [facility] Pain in left Fe- Mario Referring [facility] (chief hipPostlaminectomy [place]. P rovider: TELEMEDICINE Pain [place] complaint) syndrome, not 1 7235 [facility], elsewhere John, Endy J, [address] classifiedRadiculo [place] [address] John, shane, lumbar is, [place], John, [place], regionOther [id number] [place], spondylosis, , [place]. s, [place], 981862983 cervical tel: [phone] , [place] regionOther [id number] . tel: spondylosis, tel: 2 [phone] lumbar 0917690 regionFibromyalgia Pain in left kneePain in right kneeChronic migraine without aura, intractable, without status migrainosusPain in right hipPain in left shoulderPain in right shoulderOsteoarthr itisPain in thoracic spineAnxiety disorder, unspecifiedLong term (current) use of opiate analgesic OFFICE VISIT, [facility] Pain in left Mario Referring [facility] (chief hipPostlaminectomy [place]. P rovider: TELEMEDICINE Pain [place] complaint) syndrome, not 1 7235 [facility], elsewhere Endy Lopez J, [address] classifiedRadiculo [place] [address] John, shane, lumbar is, [place], John, C[place]ina, regionOther [id number] [place], spondylosis, , [place]. s, [place], 849007273 cervical tel:+ [phone] , [place] regionOther [id number] . tel: spondylosis, tel: [phone] lumbar 8253643 regionFibromyalgia Pain in left kneePain in right kneeChronic migraine without aura, intractable, without status migrainosusPain in right hipPain in left shoulderPain in right shoulderOsteoarthr itisPain in thoracic spineAnxiety disorder, unspecifiedLong term (current) use of opiate analgesic OFFICE VISIT, [facility] Pain in left Mario Referring [facility] (chief hipPostlaminectomy [place]. P rovider: TELEMEDICINE Pain [place] complaint) syndrome, not 0 [address] [facility], elsewhere Endy Lopez J, [address] classifiedRadiculo [facility] [address] John, shane, lumbar is, [place], John, C[place]ina, regionOther [id number] [place], spondylosis, , [place]. s, [place], 979035723 cervical tel: [phone] , [place] regionOther 46874273 . tel: spondylosis, tel: 2 [phone] lumbar 1403088 regionFibromyalgia Pain in left kneePain in right kneeChronic migraine without aura, intractable, without status migrainosusPain in right hipPain in left shoulderPain in right shoulderOsteoarthr itisPain in thoracic spineAnxiety disorder, unspecifiedLong term (current) use of opiate analgesic OFFICE VISIT, [facility] Pain Postlaminectomy [facility] Referring [facility] (chief syndrome, not [place]. Provid er: TELEMEDICINE Pain [place] complaint) elsewhere 0 7235 [facility], classifiedRadiculo John Will J, [address] shane, lumbar [place] 7235 [facility] [place], regionOther is, [place], John, C[place]ina, spondylosis, [id number] [place], cervical , [place]. s, [place], 040851236 regionOther tel:+ [phone] , [place] spondylosis, 23571924 . tel: lumbar tel:+ [phone] regionFibromyalgia 8412 345 Pain in left kneePain in right kneeChronic migraine without aura, intractable, without status migrainosusPain in left hipPain in right hipPain in left shoulderPain in right shoulderOsteoarthr itisPain in thoracic spineAnxiety disorder, unspecifiedLong term (current) use of opiate analgesic OFFICE/OUTPAT [facility] Postlaminectomy Oct- Gonzalez as Referring IENT VISIT, [facility] (chief syndrome, not [place]. Pr ovider: EST Pain [place] complaint) elsewhere 0 7235 [facility], classifiedRadiculo Endy Lopez J, [address] shane, lumbar [place] 7235 [facility] [place], regionOther is, [place], John, [place], spondylosis, [id number] [place], cervical , [place]. s, [place], 690648232 regionOther tel:+ [phone] , [place] spondylosis, 89698661 . tel: lumbar tel: [phone] regionFibromyalgia 8412 345 Pain in left kneePain in right kneeChronic migraine without aura, intractable, without status migrainosusPain in left hipPain in right hipPain in left shoulderPain in right shoulderOsteoarthr itisPain in thoracic spineAnxiety disorder, unspecifiedLong term (current) use of opiate analgesicEncounter for therapeutic drug level monitoring OFFICE VISIT, [facility] Pain Postlaminectomy Sep-2 Gonzalez as Referring EST [facility] (chief syndrome, not [place]. Provid er: TELEMEDICINE Pain [place] complaint) elsewhere 0 7235 [facility], classifiedRadiculo John, Will J, [address] shane, lumbar [place] [address] John, regionOther is, [place], John, C[place]ina, spondylosis, [id number] [place], cervical , [place]. s, [place], 536641866 regionOther tel: [phone] , [place] spondylosis, [id number] . tel: lumbar regionLong tel: [phone] term (current) use 8412 345 of opiate analgesicAnxiety disorder, unspecifiedFibromy algiaPain in left kneePain in right kneeChronic migraine without aura, intractable, without status migrainosusPain in left hipPain in right hipPain in left shoulderPain in right shoulderOsteoarthr itisPain in thoracic spine OFFICE VISIT, [facility] Pain Postlaminectomy Yeimy en Referring [facility] (chief syndrome, not V[place]. Provid er: TELEMEDICINE Pain [place] complaint) elsewhere 0 [address] [facility], [facility] [address] Jermaine l J, [address] shane, lumbar 11 Umair [address] John, regionOther 100, John, C[place]ina, spondylosis, [place], cervical e, [place], s, MN, 907348968 regionOther [id number] [phone] , [place] spondylosis, , [place]. . tel: lumbar regionLong tel: te l:+ [phone] term (current) use [id number] 2345 of opiate analgesicAnxiety disorder, unspecified [facility] Postlaminectomy RN RN. Refe [facility] syndrome, not [address] Prov ider: Pain [place] elsewhere 0 [facility], classified [place] Will J, [address] is, [place], [address] Ojhn, [id number] John, [place], , [place]. [place], tel: s, [place], [id number] , [place] . tel: tel: [phone] [facility] Postlaminectomy David Ref [facility] Surgery syndrome, not 4-202 Gi. Provider: Pain Center elsewhere 0 7235 [facility], classified JohnEndy J, [address] [place] [address] John, is, [place], Chandana Lopeza, [id number] [place], , [place]. s, [place], 043167788 tel: [phone] , [place] [id number] . tel: tel:+[phone] [id number] OFFICE VISIT, [facility] Back Pain Postlaminectomy Kanga s Referring [facility] (chief syndrome, not [place]. Provider: TELEMEDICINE Pain complaint) elsewhere 0 7235 [facility], classifiedRadiculo JohnEndy J, [address] shane, lumbar [place] 7[address] O hms John, regionOther is, [place], [place], [place], spondylosis, [id number] [place], cervical , [place]. [place], [place], 099438718 regionOther tel: [phone] , [place] spondylosis, [id number] . tel: lumbar regionLong tel: [phone] term (current) use [id number] 345 of opiate analgesicAnxiety disorder, unspecified [facility] Postlaminectomy Mario Refe [facility] syndrome, not [place]. Provid er: Pain Caterina elsewhere 0 7235 [facility], classified JohnEndy J, [address] [place] [address] John, is, [place], [place], [id number] [place], , [place]. [place], [place], [address]7665 tel: [phone] , [place] [id number] . tel: tel:[phone] [facility] Postlaminectomy Kokayeff Ref [facility] Surgery syndrome, not Gi. Provider: Pain Center elsewhere 0 7235 [facility], classified Endy Lopez J, [address] [place] [address] John, is, [place], [place], Caterina, [id number] [place], , [place]. [place], [place], 158652479 tel: [phone] , [place] [id number] . tel: tel:[phone] OFFICE VISIT, [facility] Back Pain Postlaminectomy Michael s Referring [facility] (chief syndrome, not [place]. Provider: TELEMEDICINE Pain complaint) elsewhere 0 7235 [facility], classifiedRadiculo Endy Lopez J, [address] shane, lumbar [place] 7235 [facility] [place], regionLong term is, [place], [place], Caterina, (current) use of [id number] [place], opiate , [place]. [place], [place], 881956786 analgesicOther tel: [phone] , [place] spondylosis, [id number] . tel: cervical tel: [phone] regionOther [id number] spondylosis, lumbar region [facility] No Information [facility] Pain Clinic [place]. Pain [place] 0 7235 [facility], John, 7235 [facility] [place], is, [place], [place], [id number] [place], , [place]. [id number] tel: , [place] [id number] tel: [phone] OFFICE VISIT, [facility] Back Pain CervicalgiaPostlam K shlomo Referring [facility] (chief inectomy syndrome, [place]. P rovider: TELEMEDICINE Pain [place] complaint) not elsewhere 0 7235 [facility], classifiedRadiculo Endy Lopez J, [address] shane, lumbar [place] 7235 [facility] John, regionLong term is, [place], John, Caterina, (current) use of [id number] [place], opiate analgesic , [place]. [place], [place], 418146217 tel: [phone] , [place] [id number] . tel: tel:[phone] Psych Dx Eval [facility] Pain disorder with [facility] related Maikel Provider: Pain psychological 0 Peg. 7235 [facility], factorsBipolar Ohca Will J, [address]235 [address] disorder John, 7235 [facility] John, [place], Caterina, is, [place], [place], [id number] s, [place], [address] , [place]. [address] , [place] tel: . tel: [phone] tel: [phone] OFFICE VISIT, [facility] Back Pain Postlaminectomy Apr-2 Michael s Referring [facility] (chief syndrome, not [place]. Provider: TELEMEDICINE Pain complaint) elsewhere 0 7235 [facility], classifiedLong John Endy Jorge, [address] term (current) use [place] 7 235 [address] John, of opiate is, [place], [place], [place], analgesicRadiculop [id number] [place], athy, lumbar , [place]. [place], MN, 533270072 regionCervicalgia tel: [phone] , [place] [id number] . tel: tel: [phone] [facility] No Information Jan- [facility] Peter. Pain [place] 0 7235 [facility], John, [address] [place], is, [place], Caterina, [id number] [place], , [place]. 259162632 tel: , [place] [id number] tel: [phone] OFFICE/OUTPAT [facility] Back Pain Postlaminectomy Jan- Gonzalez as Referring IENT VISIT, [facility] (chief syndrome, not [place]. Pr ovider: EST Pain [place] complaint) elsewhere 0 7235 [facility], classifiedLong Endy Lopez, [address] term (current) use [place] 7 235 [address] John, of opiate is, [place], John, Caterina, analgesicCervicalg [id number] [place], iaRadiculopathy, , [place]. [place], [place], 339139414 lumbar region tel: [phone] , [place] [id number] . tel: tel:[phone] [facility] Postlaminectomy Mar- Garcia Refe rring [facility] Surgery syndrome, not Viry. Provider: Pain Center elsewhere 0 7235 [facility], classified John, Will J, [address] [place] [address] John, is, [place], Caterina Lopez, [id number] [place], , [place]. [place], [place], 012157385 tel:+ [phone] , [place] [id number] . tel: tel:[phone] OFFICE/OUTPAT [facility] Back Pain Postlaminectomy Gonzalez as Referring IENT VISIT, [facility] (chief syndrome, not 8 [place]. Pr ovider: EST Pain [place] complaint) elsewhere 0 7235 [facility], classifiedCervical John, Will J, [address] giaRadiculopathy, [place] 72 35 [address] John, lumbar regionLong is, [place], Caterina Lopez, term (current) use [id number] [place], of opiate , [place]. [place], [place], 859337425 analgesicCarrier tel: [phone] , [place] of Methicillin [id number] . tel: susceptible tel:[phone] Staphylococcus [id number] aureusCarrier of Methicillin resistant Staph aureusMethicillin resis staph infct causing diseases classd elsMelissacounter for therapeutic drug level monitoring [facility] Postlaminectomy [facility] Pain Clinic syndrome, not [place]. Pain Caterina elsewhere 0 7235 [facility], classified John, [address] [place], is, [place], Caterina, [id number] [place], , [place]. 688275111 tel:+ , [place] [id number] tel: [phone] OFFICE/OUTPAT [facility] Back Pain Radiculopathy, Kanga s Referring IENT VISIT, [facility] (chief lumbar [place]. Provider : EST Pain [place] complaint) regionPostlaminect 0 7235 [facility], marquis syndrome, not John, Will J , [address] elsewhere [place] 7[address] John, classifiedCervical is, [place], Caterina Lopez, giaLong term [id number] [place], (current) use of , [place]. [place], [place], 302123243 opiate analgesic tel: [phone] , [place] [id number] . tel: tel:[phone] OFFICE/OUTPAT [facility] Back Pain Radiculopathy, Kanga s Referring IENT VISIT, [facility] (chief lumbar 7-201 [place]. Provider : EST Pain Caterina complaint) regionCervicalgiaL 9 35 [address] [facility], beryl term (current) Endy Lopez J, [address] use of opiate [place] 7235 O hms John, analgesicPostlamin is, [place], John, [place], ectomy syndrome, 838831469 [place], not elsewhere , [place]. [place], MN, 849185979 classified tel: [phone] , [place] [id number] . tel: tel: [phone] OFFICE/OUTPAT [facility] Back Pain Chronic pain Referring IENT VISIT, [facility] (chief syndromePostlamine 6-201 [place] . Provider: EST Pain Caterina complaint) ctomy syndrome, 9 35 [facility], not elsewhere Endy Lopez J, [address] classifiedRadiculo [place] 7 235 [address] John, shane, lumbar is, [place], John, Caterina, regionCervicalgiaL [id number] [place], beryl term (current) , [place]. [place], [place] , 514060765 use of opiate tel: [phone] , [place] analgesic [id number] . 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 Provider: EST Pain Caterina complaint) opiate 9 [facility], analgesicPostlamin JohnEndy J, 7235 [address] ectomy syndrome, [place] 723 5 Ohms John, not elsewhere is, [place], John, [place], classifiedRadiculo [id number] [place], shane, lumbar , [place]. s, MN, 284426812 regionCervicalgia tel: [phone] , US 84816227 . tel: tel:[phone] OFFICE/OUTPAT [facility] Back Pain Postlaminectomy Carlos as Referring IENT VISIT, [facility] (chief syndrome, not 0-201 [place]. Pr ovider: EST Pain [place] complaint) elsewhere 9 7235 [facility], classifiedLow back John, Will J, [address] painCervicalgiaLon [place] 7 235 [address] John, g term (current) is, [place], John, Caterina, use of opiate [id number] [place], analgesic , [place]. [place], [place], 473507398 tel:[phone] , US [id number] . tel: tel:[phone] OFFICE/OUTPAT [facility] Back Pain Postlaminectomy Carlos as Referring IENT VISIT, [facility] (chief syndrome, not 0-201 [place]. Pr ovider: EST Pain Caterina complaint) elsewhere 9 7235 [facility], classifiedLow back John, Will J, [address] painCervicalgiaLon [place] 7 235 [address] John, g term (current) is, [place], John, [place], use of opiate [id number] [place], analgesic , [place]. [place], [place], 239542392 tel:[phone] , US 83220947 . tel: tel:[phone] OFFICE/OUTPAT [facility] Back Pain Postlaminectomy Carlos as Referring IENT VISIT, [facility] (chief syndrome, not 1-201 [place]. Pr ovider: EST Pain Caterina complaint) elsewhere 9 7235 [facility], classifiedLow back John, Will J, [address] painCervicalgiaEnc [place] 7 235 [address] more [place]ope[place] for is, [place], John, Caterina, therapeutic drug [id number] [place], level , [place]. [place], [place], 444926949 monitoringLong tel: [phone] , [place] term (current) use 33181245 . tel: of opiate tel:2 [phone] analgesic [phone] OFFICE/OUTPAT [facility] Back Pain Postlaminectomy March- Gonzalez as Referring IENT VISIT, [facility] (chief syndrome, not 1-201 [place]. Pr ovider: EST Pain Caterina complaint) elsewhere 9 7235 [facility], classifiedLow back John, Will J, [address] painCervicalgiaLon [place] 7 235 [address] John, g term (current) is, [place], John, [place], use of opiate [id number] [place], analgesic , [place]. [place], [place], 359435219 tel: [phone] , [place] 47985490 . tel: tel:[phone] OFFICE/OUTPAT [facility] Back Pain Postlaminectomy Feb-0 Garcia Referring IENT VISIT, [facility] (chief syndrome, not 2-201 Viry. Pr ovider: EST Pain Caterina complaint) elsewhere 9 7235 [facility], classifiedRadiculo John, Will J, [address]235 [address] shane, lumbar [place] 7235 O hms John, regionCervicalgiaL is, [place], John, Caterina, beryl term (current) [id number] [place], use of opiate , [place]. [place], [place], 036523048 analgesic tel:[phone] , [place] [id number] . tel: tel:[phone] OFFICE/OUTPAT [facility] Back Pain Chronic pain Nov- Mario Referring IENT VISIT, [facility] (chief syndromeRadiculopa 3-201 [place] . Provider: EST Pain Caterina complaint) thy, lumbar 9 7235 [facility], regionLow back John, Will J, [address] painLong term [place] 7235 O hms John, (current) use of is, [place], John, Caterina, opiate analgesic 182488010 [place], , [place]. [place], [place], 702738221 tel: [phone] , [place] [id number] . tel: tel: [phone] [facility] Postlaminectomy Nov- Mario Refe [facility] syndrome, not 3-201 [place]. Provid er: Pain Caterina elsewhere 9 7235 [facility], classified Endy Lopez, [address] [place] [address] John, is, [place], Caterina Lopez, [id number] [place], , [place]. [place], [place], 576106772 tel: [phone] , [place] [id number] . tel: tel:[phone] OFFICE/OUTPAT [facility] Back Pain Radiculopathy, Kanga s Referring IENT VISIT, [facility] (chief lumbar regionLow [place]. Provider: EST Pain Caterina complaint) back painLong term 8 7235 [facility], (current) use of Endy Lopez, [address] opiate analgesic [place] 723 5 [address] John, is, [place], Caterina Lopez, [id number] [place], , [place]. [place], [place], 066876380 tel: [phone] , [place] 86021809 . tel: tel:[phone] [facility] Postlaminectomy Sep- Mario Refe [facility] syndrome, not 1-201 [place]. Provid er: Pain Caterina elsewhere 8 7235 [facility], classified Endy Lopez, [address] [place] [address] John, is, [place], Caterina Lopez, [id number] [place], , [place]. [place], [place], 966705317 tel: [phone] , [place] 49924784 . tel: tel:[phone] [facility] Postlaminectomy Aug- Garcia Refe [facility] Surgery syndrome, not 5-201 Viry. Provider: Pain Center elsewhere 8 7235 [facility], classified Endy Lopez, [address] [place] [address] John, is, [place], Caterina Lopez, [id number] [place], , [place]. [place], [place], 555792858 tel: [phone] , [place] [id number] . tel: tel: [phone] OFFICE/OUTPAT [facility] Back Pain Postlaminectomy Oct-2 Gonzalez as Referring IENT VISIT, [facility] (chief syndrome, not 2-201 [place]. Pr ovider: EST Pain [place] complaint) elsewhere 8 7235 [facility], classifiedRadiculo Endy Lopez, 7235 [facility] shane, lumbar [place] [address] John, regionLow back is, [place], John, Caterina, pain [id number] [place], , [place]. [place], [place], 388492162 tel: [phone] , [place] [id number] . tel: tel: [phone] [facility] Postlaminectomy Oct-0 Mario Refe [facility] syndrome, not 1-201 [place]. Provid er: Pain [place] elsewhere 8 7235 [facility], classifiedLow back Endy Lopez J, [address] pain [place] 7235 [facility] John, is, [place], Chandana Lopeza, [id number] [place], , [place]. [place], [place], 743655868 tel: [phone] , [place] [id number] . tel: tel: [phone] [facility] Postlaminectomy Sep-2 Garcia Refe [facility] Surgery syndrome, not 7-201 Viry. Provider: Pain Center elsewhere 8 7235 [facility], classified John Will J, [address] [place] 7235 [facility] John, is, [place], Chandana Lopeza, [id number] [place], , [place]. [place], [place], 364880573 tel: [phone] , [place] 86556514 . tel: tel:[phone] OFFICE/OUTPAT [facility] Back Pain Chronic pain Sep-1 Mario Referring IENT VISIT, [facility] (chief syndromePostlamine 9-201 [place] . Provider: EST Pain Caterina complaint) ctomy syndrome, 8 [address] [facility], not elsewhere Endy Lopez, [address] classifiedRadiculo [place] 7 235 [address] John, shane, lumbar is, [place], John, [place], regionLow back [id number] [place], pain , [place]. [place], [place], 285324577 tel:+ [phone] , US [id number] . tel: tel:[phone] OFFICE/OUTPAT [facility] Back Pain Chronic pain Sep-0 Mario Referring IENT VISIT, [facility] (chief syndromeCervicalgi 5- [place] . Provider: EST Pain [place] complaint) aPostlaminectomy 8 [address]235 [address] [facility], syndrome, not Endy Lopez, [address] elsewhere [place] 7[address] John, classifiedLow back is, [place], John, [place], painRadiculopathy, 620790144 [place], lumbar region , [place]. [place], [place], 284707353 tel: [phone] , US [id number] . tel: tel:[phone] OFFICE/OUTPAT [facility] Back Pain Postlaminectomy Aug-0 Gonzalez as Referring IENT VISIT, [facility] (chief syndrome, not 6- [place]. Pr ovider: EST Pain Caterina complaint) elsewhere 8 [address] [facility], classifiedChronic Endy Lopez , [address] pain [place] [address] John, syndromeCervicalgi is, [place], John, [place], aLow back pain [id number] [place], , [place]. [place], [place], 659902382 tel: [phone] , [place] [id number] . tel: tel:[phone] OFFICE/OUTPAT [facility] Back Pain Chronic pain Kanu-0 Mario Referring IENT VISIT, [facility] (chief syndromeCervicalgi 6-201 [place] . Provider: EST Pain Caterina complaint) aLow back pain 8 [address]235 [address] [facility], John, Will J, [address] [place] [address] John, is, [place], John, [place], [id number] [place], , [place]. [place], [place], 952946923 tel: [phone] , [place] [id number] . tel: tel: [phone] OFFICE/OUTPAT [facility] Back Pain CervicalgiaChronic Apr-1 K angas Referring IENT VISIT, [facility] (chief pain syndromeLow 3-201 [place]. Provider: EST Pain [place] complaint) back painLumbago 8 7235 [facility], with sciatica, John, Will J, [address] left [place] 7[address] John, sidePostlaminectom is, [place], Caterina Lopez, y syndrome, not [id number] [place], elsewhere , [place]. [place], [place], 380515929 classifiedLong tel:43 , [place] term (current) use 78350846 . tel: of opiate tel: [phone] analgesic [phone] OFFICE/OUTPAT [facility] Back Pain CervicalgiaChronic Apr-0 K angas Referring IENT VISIT, [facility] (chief pain syndromeLow 6-201 [place]. Provider: EST Pain Caterina complaint) back 8 7235 [facility], painPostlaminectom Endy Lopez J, [address] y syndrome, not [place] 7235 [address] John, elsewhere is, MNJohn [place], classified [id number] [place], , [place]. [place], [place], 047493373 tel:[phone] , US [id number] . tel: tel: [phone] OFFICE/OUTPAT [facility] Back Pain CervicalgiaChronic Feb-0 K angas Referring IENT VISIT, [facility] (chief pain syndromeLow 6-201 [place]. Provider: EST Pain [place] complaint) back 8 7235 [facility], painPostlaminectom Endy Lopez J, [address] y syndrome, not [place] 7[address] John, elsewhere is, [place], John, [place], classified [id number] [place], , [place]. [place], [place], 118374026 tel: [phone] , [place] [id number] . tel: tel: [phone] OFFICE/OUTPAT [facility] Back Pain CervicalgiaChronic K shlomo Referring IENT VISIT, [facility] (chief pain syndromeLow 8201 [place]. Provider: EST Pain [place] complaint) back 7 7235 [facility], painPostlaminectom John, Will J, [address] y syndrome, not [place] [address] John, elsewhere is, [place], John, Caterina, classified [id number] [place], , [place]. [place], [place], 367593369 tel:[phone] , US [id number] . tel: tel: [phone] OFFICE/OUTPAT [facility] Back Pain CervicalgiaLow Kangiqra s Referring IENT VISIT, [facility] (chief back 0-201 [place]. Provider : EST Pain Caterina complaint) painPostlaminectom 7 7235 [facility], y syndrome, not John, Will J, [address] elsewhere [place] [address] John, classified is, [place], John, [place], [id number] [place], , [place]. [place], [place], 236494783 tel: [phone] , US [id number] . tel: tel: [phone] OFFICE/OUTPAT [facility] Back Pain Postlaminectomy Gonzalez as Referring IENT VISIT, [facility] (chief syndrome, not 9201 [place]. Pr ovider: EST Pain Caterina complaint) elsewhere 7 7235 [facility], classifiedLow back John, Will J, [address] painCervicalgia [place] [address] John, is, [place], John, [place], [id number] [place], , [place]. [place], [place], 640531914 tel: [phone] , [place] [id number] . tel: tel: [phone] OFFICE/OUTPAT [facility] Back Pain Low back May- Mario Ref erring IENT VISIT, [facility] (chief painCervicalgiaChr [place] . Provider: EST Pain Caterina complaint) onic pain 7 7235 [facility], syndromePostlamine John, Endy J, [address] ctomy syndrome, [place] [address] John, not elsewhere is, [place], Caterina Lopez, classified [id number] [place], , [place], [place], 152233722 tel: [phone] , US 77000105 . tel: tel: [phone] OFFICE/OUTPAT [facility] Back Pain Low back March-3 Mario Ref erring IENT VISIT, [facility] (chief painCervicalgiaChr [place] . Provider: EST Pain Caterina complaint) onic pain 7 7235 [facility], syndromePostlamine Endy Lopez J, [address] ctomy syndrome, [place] [address] John, not elsewhere is, [place]John [place], classified [id number] [place], , [place]. [place], [place], 148519357 tel: [phone] , US 83601247 . tel: tel: [phone] OFFICE/OUTPAT [facility] Back Pain Low back May-0 Mario Ref erring IENT VISIT, [facility] (chief painCervicalgiaChr [place] . Provider: EST Pain [place] complaint) onic pain syndrome 7 7235 [facility], Endy Lopez J, [address] [place] 7235 [facility] John, is, [place], Caterina Lopez, [id number] [place], , [place]. [place], [place], 003679479 tel: [phone] , US [id number] . tel: tel: [phone] OFFICE/OUTPAT [facility] Back Pain CervicalgiaChronic Apr-0 K angas Referring IENT VISIT, [facility] (chief pain syndromeLow [place]. Provider: EST Pain Caterina complaint) back 7 7235 [facility], painPostlaminectom John, Endy J, [address] y syndrome, not [place] [address] John, elsewhere is, [place], Caterina Lopez, classified [id number] [place], , [place], [place], 570364445 tel:+ [phone] , US [id number] . tel: tel:[phone] OFFICE/OUTPAT [facility] Back Pain Low back Jan- Mario Ref erring IENT VISIT, [facility] (chief painCervicalgiaChr [place] . Provider: EST Pain [place] complaint) onic pain 7 7235 [facility], syndromePostlamine John, Endy J, [address] ctomy syndrome, [place] [address] John, not elsewhere is, [place]John [place], classified [id number] [place], , [place], [place], 281400028 tel: [phone] , US [id number] . tel: tel:[phone] OFFICE/OUTPAT [facility] Back Pain CervicalgiaLow Kanga s Referring IENT VISIT, [facility] (chief back painChronic [place]. Provider: EST Pain [place] complaint) pain syndrome 7 7235 [facility], Endy Lopez J, [address] [place] [address] John, is, [place], Caterina Lopez, [id number] [place], , [place], [place], 301632485 tel: [phone] , [place] [id number] . tel: tel:[phone] OFFICE/OUTPAT [facility] Back Pain Low back Mario Ref erring IENT VISIT, [facility] (chief painCervicalgiaChr [place] . Provider: EST Pain Caterina complaint) onic pain syndrome 7 7235 [facility], John Will J, [address] [place] [address] John, is, [place], John, [place], [id number] [place], , [place]. [place], [place], 080098955 tel:[phone] , [place] [id number] . tel: tel: [phone] OFFICE/OUTPAT [facility] Back Pain Low back Dec-0 Mario Ref erring IENT VISIT, [facility] (chief painCervicalgiaPos 2 [place] . Provider: EST Pain Caterina complaint) [facility] 6 [facility] syndrome, not John, Will J, [address] elsewhere [place] [address] John, classifiedChronic is, [place], John, Caterina, pain syndrome [id number] Janae weiner [place], , [place]. [place], [place], 240892883 tel:[phone] , [place] [id number] . tel: tel: [phone] OFFICE/OUTPAT [facility] Back Pain Low back Nov-0 Mario Ref erring IENT VISIT, [facility] (chief painCervicalgiaPos [place] . Provider: EST Pain [place] complaint) [facility]ctomy 6 [facility], syndrome, not John, Will J, [address] elsewhere [place] [address] John, classified is, [place], John, Caterina, [id number] [place], , [place]. [place], [place], 147247186 tel:[phone] , [place] [id number] . tel: tel: [phone] OFFICE/OUTPAT [facility] Back Pain Lumbago with Aug- Van Referring IENT VISIT, [facility] (chief sciatica, left 4-201 [address] Provider: EST Pain [place] complaint) sideLong term 6 Kera. [facility], (current) use of [address] Will J, [address] opiate John, [address] John, analgesicCervicalg [place], [place], [place], [place], [id number] [place], [place], [id number] , [place]. [phone] , [place] tel: . tel: [phone] tel: [phone] OFFICE/OUTPAT [facility] Back Pain CervicalgiaLow Kanga s Referring IENT VISIT, [facility] (chief back Rosetta. Provider : EST Pain Caterina complaint) painPostlaminectom 6 7235 [facility], y syndrome, not John, Will J, [address] elsewhere [place] [address] John, classified [place], [place], John Caterina, [id number] [place], , [place]. [place], [place], [id number] tel: [phone] , [place] [id number] . tel: tel: [phone] OFFICE/OUTPAT [facility] Back Pain Low back Mario Ref erring IENT VISIT, [facility] (chief painCervicalgiaPos Rosetta . Provider: EST Pain Caterina complaint) tlaminectomy 6 7235 [facility], syndrome, not John, Will J, [address] elsewhere [place] [address] John, classified [place], [place], [place] Caterina, [id number] [place], , [place]. [place], [place], [id number] tel: [phone] , [place] [id number] . tel: tel: [phone] OFFICE/OUTPAT [facility] Back Pain CervicalgiaLow Kanga s Referring IENT VISIT, [facility] (chief back painLumbago Rosetta. Provider: EST Pain Caterina complaint) with sciatica, 6 7235 [facility], left side John, Will J, [address] [place] [address] John, is, [place], [place], [place], [id number] [place], , [place]. [place], [place], [id number] tel: [phone] , [place] [id number] . tel: tel: [phone] OFFICE/OUTPAT [facility] Back Pain Low back Mario Ref erring IENT VISIT, [facility] (chief painCervicalgia Rosetta. Provider: EST Pain Caterina complaint) 6 [facility], John, Endy J, [address] [place] [address] John, is, [place], Caterina Lopez, [id number] [place], , [place]. [place], [place], [id number] tel:[phone] , [place] [id number] . tel: tel:[phone] OFFICE/OUTPAT [facility] Back Pain CervicalgiaLow March- Kanga s Referring IENT VISIT, [facility] (chief back painLumbago 0- Rosetta. Provider: EST Pain Caterina complaint) with sciatica, 6 [facility] left John, Endy Patel, [address] sidePostlaminectom [place] 7 [address] John, y syndrome, not is, [place], John, Caterina, elsewhere [id number] [place], classified , [place]. [place], [place], [id number] tel: [phone] , [place] [id number] . tel: tel:[phone] OFFICE/OUTPAT [facility] Back Pain Low back Apr-2 Mario Ref erring IENT VISIT, [facility] (chief painCervicalgiaLum [place] . Provider: EST Pain [place] complaint) bago [facility] 6 [facility], [facility]atica, left Endy Lopez, [address] side [place] [address] John, is, [place], Caterina Lopez, [id number] [place], , [place]. [place], [place], [id number] tel: [phone] , [place] [id number] . tel: tel:[phone] OFFICE/OUTPAT [facility] Back Pain Low back Apr-0 Mario Ref erring IENT VISIT, [facility] (chief painCervicalgia 6 Rosetta. Provider: EST Pain [place] complaint) 6 [facility], Endy Lopez, [address] [place] [address] John, is, [place], Caterina Lopez, [id number] [place], , [place]. [place], [place], [id number] tel: [phone] , [place] [id number] . tel: tel: [phone] OFFICE/OUTPAT [facility] Back Pain Low back Mar-2 Mario Ref erring IENT VISIT, [facility] (chief painCervicalgiaLum 5-201 [place] . Provider: NEW Pain [place] complaint) bago with 6 [address] [facility], sciatica, left John, Will J, [address] sideLong term [place] [address] John, (current) use of is, [place], John, [place], opiate [id number] [place], analgesicPostlamin , [place]. [place], [place] , [id number] ectomy syndrome, tel: [phone] , [place] not elsewhere [id number] . tel: classified tel: [phone] Family History Family Member Type Diagnosis Age At Onset Mother Problem (finding) back pain Payers Payer name Insurance type Covered alliance party ID Authorization(s ) Medicare MB [id number] [facility] [id number] Social History Type Description Quantity Date Captured Comments Alcohol Use Details No Caffeine Use Details Unknown Tobacco Use Status Moderate cigarette smoker (10-19 Au cigs/day) Smoking Status Heavy tobacco smoker Sex Female Vital Signs Date / Height Weight BMI Pulse Blood Temperature Respiratory Body Head Head Circ. Wt./Juan Manuel. BMI Pulse Inhaled Time: Rate Pressure Rate Surface Circumference Percenti le Percentile percentile Ox Ox Area 60.781 -2 kg 11:08 (134.00 AM lbs) Chief Complaint And Reason For Visit From encounter dated '07/27/2022 10:57'. Back Pain (chief complaint). Description: Severity level is 9. Duration: chronic. The problem is worsening. Reason For Referral Reason For Referral No Information Plan Of Treatment Date Type Action Status Goal UDT. Due on due Goal Zoster vaccine (). Due on due Goal Review Allergy List. Due on due Goal OARS. Due on due Goal SHOE SALESMAN Scanned. Due on due Goal Unhealthy drug use screening. Du e on due Goal PHQ-9. Due on due Goal FIT. Due on due Goal Lipid panel. Due on due Goal Update Social History. Due on Goal Tobacco Use. Due on due Goal Medication Reconciliation. Due o n due Goal CT-Colonography. Due on due Goal MINE LABORER Paperwork. Due on due Goal Weight. Due on due Goal FIT-DNA. Due on due Goal HPV. Due on due Goal Order Annual PT. Due on due Goal Height. Due on due Goal AST (SGOT). Due on d ue Goal ALT (SGPT). Due on d ue Goal Hepatitis C screening. Due on Goal Creatinine. Due on d ue Goal Review Allergy List. Due on due Goal Medication Reconciliation. Due o n due Goal Update Social History. Due on Goal Lipid panel. Due on due Goal PHQ-9. Due on due Goal Weight. Due on due Goal Zoster vaccine (1st). Due on due Goal UDT. Due on due Goal Hepatitis C screening. Due on du e Goal FIT-DNA. Due on due Goal OARS. Due on due Goal AST (SGOT). Due on d ue Goal ALT (SGPT). Due on d ue Goal Creatinine. Due on d ue Goal Order Annual PT. Due on due Goal Tobacco Use. Due on due Goal FIT. Due on due Goal SHOE SALESMAN Scanned. Due on due Goal MINE LABORER Paperwork. Due on due Goal HPV. Due on due Goal CT-Colonography. Due on due Goal Height. Due on due Goal Unhealthy drug use screening. Du on due Goal UDT. Due on due Goal AST (SGOT). Due on d ue Goal Tobacco Use. Due on due Goal OARS. Due on due Goal Lipid panel. Due on due Goal Order Annual PT. Due on due Goal MINE LABORER Paperwork. Due on due Goal SHOE SALESMAN Scanned. Due on due Goal Height. Due on due Goal Unhealthy drug use screening. on due Goal Review Allergy List. Due on due Goal ALT (SGPT). Due on d ue Goal HPV. Due on due Goal Creatinine. Due on d ue Goal Update Social History. Due on Goal Medication Reconciliation. Due o n due Goal PHQ-9. Due on due Goal CT-Colonography. Due on due Goal FIT-DNA. Due on due Goal FIT. Due on due Goal Zoster vaccine (1st). Due on due Goal Weight. Due on due Goal Hepatitis C screening. Due on Goal Review Allergy List. Due [...] due Goal FIT. Due on due Goal MINE LABORER Paperwork. Due on due Goal SHOE SALESMAN Scanned. Due on due Goal Unhealthy drug use screening. Du e on due Goal Order Annual PT. Due on due Goal OARS. Due on due Goal ALT (SGPT). Due on d ue Goal Height. Due on due Goal Update Social History. Due on Goal Hepatitis C screening. Due on Goal Zoster vaccine (1st). Due on due Goal Lipid panel. Due on due Goal MINE LABORER Paperwork. Due on due Goal ALT (SGPT). [...] C screening. Due on du e Goal Lipid panel. Due on due Goal Medication Reconciliation. Due o n due Goal Update Social History. Due on Goal Weight. Due on due Goal OARS. Due on due Goal Creatinine. Due on d ue Goal FIT-DNA. Due on due Goal UDT. Due on due Goal SHOE SALESMAN Scanned. Due on due Goal Medication Reconciliation. Due o n due Goal MINE LABORER Paperwork. Due on due Goal ALT (SGPT). Due on d ue Goal Unhealthy drug use screening. on due Goal FIT-DNA. Due on due Goal Creatinine. Due on d ue Goal Lipid panel. Due on due Goal SHOE SALESMAN Scanned. Due on due Goal Tobacco Use. Due on due Goal Update Social History. Due on du e Goal CT-Colonography. Due on due Goal OARS. [...] Goal Update Social History. Due on Goal MINE LABORER Paperwork. Due on due Goal SHOE SALESMAN Scanned. Due on due Goal AST (SGOT). [...] due Goal PHQ-9. Due on due Goal MINE LABORER Paperwork. Due on due Goal Update Social History. Due on du e Goal UDT. Due on due Goal SHOE SALESMAN Scanned. Due on due Goal AST (SGOT). Due on d ue Goal OARS. Due on due Goal Height. Due on due Goal ALT (SGPT). Due on d ue Goal Order Annual PT. Due on due Goal Weight. Due on due Goal Tobacco Use. Due on due Goal Medication Reconciliation. Due o n due Goal Update Social History. Due on Goal Review Allergy List. Due on due Goal Weight. Due on due Goal Tobacco Use. Due on due Goal Medication Reconciliation. Due o n due Goal PHQ-9. Due on due Goal MINE LABORER Paperwork. Due on due Goal UDT. Due on due Goal AST (SGOT). Due on d ue Goal SHOE SALESMAN Scanned. Due on due Goal OARS. Due [...] ue Goal UDT. Due on due Goal MINE LABORER Paperwork. Due on due Goal Order Annual PT. Due on due Goal OARS. Due on due Goal SHOE SALESMAN Scanned. Due on due Goal Tobacco Use. Due on due Goal Medication Reconciliation. Due o n due Goal OARS. Due on due Goal SHOE SALESMAN Scanned. Due on due Goal Update Social History. Due on Goal AST (SGOT). Due on d ue Goal Height. Due on due Goal Weight. Due on due Goal Order Annual PT. Due on due Goal ALT (SGPT). Due on d ue Goal PHQ-9. Due on due Goal UDT. Due on due Goal Review Allergy List. Due on due Goal MINE LABORER Paperwork. Due on due Goal AST (SGOT). Due on d ue Goal Review Allergy List. Due on due Goal ALT (SGPT). Due on d ue Goal UDT. Due on due Goal Tobacco Use. Due on due Goal Order Annual PT. Due on due Goal SHOE SALESMAN Scanned. Due on due Goal Update Social History. Due on Goal Medication Reconciliation. Due o n due Goal OARS. Due on due Goal Height. Due on due Goal Weight. Due on due Goal PHQ-9. Due on due Goal MINE LABORER Paperwork. Due on due Goal Order Annual PT. Due on due Goal OARS. Due on due Goal Update Social History. Due on du e Goal AST (SGOT). Due on d ue Goal UDT. Due on due Goal Height. Due on due Goal ALT (SGPT). Due on d ue Goal MINE LABORER Paperwork. Due on due Goal SHOE SALESMAN Scanned. Due on due Goal PHQ-9. Due [...] Update Social History. Due on e Goal Tobacco Use. Due on due Goal SHOE SALESMAN Scanned. Due on due Goal MINE LABORER Paperwork. Due on due Goal AST (SGOT). Due on d ue Goal SHOE SALESMAN Scanned. Due on due Goal Order Annual PT. Due on due Goal Tobacco Use. Due on due Goal Medication Reconciliation. Due o n due Goal Review Allergy List. Due on due Goal UDT. Due on due Goal Weight. Due on due Goal ALT (SGPT). Due on d ue Goal PHQ-9. Due on due Goal Height. Due on due Goal MINE LABORER Paperwork. Due on due Goal Update Social History. Due on Goal OARS. Due on due Goal Weight. Due on due Goal AST (SGOT). Due on d ue Goal Medication Reconciliation. Due o n due Goal ALT (SGPT). Due on d ue Goal Review Allergy List. Due on due Goal UDT. Due on due Goal Update Social History. Due on Goal SHOE SALESMAN Scanned. Due on due Goal PHQ-9. Due on due Goal OARS. Due on due Goal Tobacco Use. Due on due Goal MINE LABORER Paperwork. Due on due Goal Height. Due on due Goal Order Annual PT. Due on due Goal Tobacco cessation counseling com pleted Goal Review Allergy List. Due on due Goal MINE LABORER Paperwork. Due on due Goal OARS. Due on due Goal Medication Reconciliation. Due o n due Goal Weight. Due on due Goal UDT. Due on due Goal Height. Due on due Goal Tobacco Use. Due on due Goal AST (SGOT). Due on d ue Goal Order Annual PT. Due on due Goal SHOE SALESMAN Scanned. Due on due Goal Update Social History. Due on e Goal PHQ-9. Due on due Goal ALT (SGPT). Due on d ue Goal OARS. Due on due Goal Height. Due on due Goal SHOE SALESMAN Scanned. Due on due Goal Tobacco Use. Due on due Goal Order Annual PT. Due on due Goal AST (SGOT). Due on d ue Goal Review Allergy List. Due on due Goal ALT (SGPT). Due on d ue Goal Weight. Due on due Goal PHQ-9. Due on due Goal Update Social History. Due on Goal MINE LABORER Paperwork. Due on due Goal Medication Reconciliation. Due o n due Goal UDT. Due on due Goal AST (SGOT). Due on d ue Goal SHOE SALESMAN Scanned. Due on due Goal MINE LABORER Paperwork. Due on due Goal ALT (SGPT). Due on d ue Goal UDT. Due on due Goal Height. Due on due Goal Tobacco Use. Due on due Goal Review Allergy List. Due on due Goal Medication Reconciliation. Due o n due Goal OARS. Due on due Goal Update Social History. Due on Goal Order Annual PT. Due on due Goal PHQ-9. Due on due Goal Weight. Due on due Goal OARS. Due on due Goal Update Social History. Due on du e Goal Review Allergy List. Due on due Goal ALT (SGPT). Due on d ue Goal MINE LABORER Paperwork. Due on due Goal UDT. Due on due Goal AST (SGOT). Due on d ue Goal Medication Reconciliation. Due o n due Goal Weight. Due on due Goal Height. Due on due Goal PHQ-9. Due on due Goal SHOE SALESMAN Scanned. Due on due Goal Tobacco Use. Due on due Goal Order Annual PT. Due on 021 due Goal Tobacco cessation counseling com pleted Goal Tobacco cessation counseling com pleted Appointment Angie Mosquera BOOKED Future Order: Lab Order URINE DRUG CONFIRMATION (3000), Ordered Ordered on: Future Order: Lab Order Drug Test Def 22+ Classe s (G0483), Ordered Ordered on: Future Order: Lab Order COMPLIANCE DRUG ANALYSIS , URINE, WITH Ordered MED REPORT ([id number]), Ordered on: Future Order: Lab Order Drug Test Def 22+ Classe s ([id number]), Ordered Ordered on: Future Order: Lab Order Drug Test Def 22+ Classe s (G0483), Ordered Ordered on: Future Order: Lab Order COMPLIANCE DRUG ANALYSIS , URINE, WITH Ordered MED REPORT ([id number]), Ordered on: Future Order: Lab Order MRSA/MSSA Screening ([id number]), Ordered Ordered on: Future Order: Lab Order COMPLIANCE DRUG ANALYSIS , URINE, WITH Ordered MED REPORT ([id number]), Ordered on: History Of Present Illness Encounter Date Complaint History Of Present I llness Comments: Angie pre sents for a virtual follow up and medications refi ll for her back and neck pain. Prescribed med ication offers 75% pain relief. Denies SE.Ne ck, back, L shoulder and bilateral hips/knees /shoulder pain have continued to be worse the past month. Typical flares with colder weather. Unde rwent hardware removal surgery to her L sydni ulder on 12/30/21 with Mccaskill in order for infection to clear. Additional surgery completed 02/26/22. In fection returned as well as dislocation. Followi ng with surgeon as needed and underwent another ortiz rgery 05/19/22 for new hardware placement. Participates in HEP as able. Ongoing relief with SCS and medical cannabis.No further questions or concerns. Back Pain Severity level is 9. Duration: chronic. The problem is worsening . Back Pain Severity level is 10 . Duration: chronic. The problem is worsening . It occurs persistently. The client describes the pain as an ache, burning, numbness, sharp and tingling. Symptoms are aggravated by ascend ing stairs, bending, descending stairs, l ifting, lying/rest, running, sitting, standing, t wisting, walking, housework, movement and prolong ed positioning. Symptoms are relieved by heat, ly ing down and pain meds/drugs. Comments: Angie pre sents for a virtual follow up and medications refi ll for her back and neck pain.Details new fx in her L hip. Advised this would heal on it's o wn. Neck, back, L shoulder and bilateral hips/k nees/shoulder pain have continued to be wors e the past month. Typical flares with colder w eather. Underwent hardware removal surgery to h er L shoulder on 12/30/21 with Mccaskill in order for in fection to clear. Additional surgery scheduled co mpleted 02/26/22. Infection returned as well as dislocation. Following with surgeon as needed an d underwent another surgery 05/19/22 for new hard montalvo placement. States while in the hospital, her Lyrica was decreased and she is unsure why. Parti cipates in HEP as able. Ongoing relief with [...] Lona rwent hardware removal surgery to her Yomi mann on 12/30/21 with Mccaskill in order for infection to clear. Additional [...] her L sydni ulder on 12/30/21 with Mccaskill in order for infection to clear. Additional [...] her L sydni johnathan on 12/30/21 with Mccaskill in order for infection to clear. Additional [...] to her L shoulder on 12/30/21 with Mccaskill in order for infection to clear. Additional surgery scheduled for 02/26/22. Particip ates in HEP as able. Ongoing relief with SCS and medical cannabis.No further questions or concern s. Back Pain (comments) Angie presents for a virtual follow up and medications refill f or her back and neck pain. Prescribed medicatio n offers 75% pain relief. Denies SE.Neck, back , L shoulder and bilateral hips/knees/shoulder pain have continued to be worse the past month . Typical flares with colder weather. Scheduled f or hardware removal surgery on 12/30/21 with Mccaskill in order for infection to clear. Will [...] is scheduled for hardware removal surgery in [facility] with Mccaskill in order for infection to ca ar. [...] for hardware removal surgery in December with Mccaskill in order for in fection to clear. Following surgery, will be leila croftg with shoulder specialist to discuss treatment options [...] with yuriy lopez as needed. Following with [facility] regarding elevated L shoulder/arm pain and notes she will b e undergoing surgery in the near future. Partici pates in HEP as able. Ongoing relief with [...] e and pain meds/drugs. Back Pain (comments) Did not see patient today - no show Back Pain Duration: chronic. Back Pain Severity level is 9. Duration: [...] will likely be starting P T after . Typical flares with colder w eather. Participates [...] further questions or concern s. Back Pain (comments) Angie presents for a [...] regimen. No other concerns today. Back Pain (comments) Angie presents for a [...] by heat and changing positions. Back Pain Severity level is 9. Duration: [...] pain relief and allows for increased functionality. Denie s side effects from current medication regimen. [...] relief and allo ws for increased functionality. Dorie s side effects from current medication regimen.N o other concerns today. Back Pain Duration: chronic. T he problem is worsening. It occurs persistently. Location of pain is lower back and neck.The pa daniella describes the pain as an ache, burning [...] massage, pain meds/drugs and rest. Back Pain Duration: chronic. T [...] L side weakness -- was treated by [facility] ic. Was put on Warfarin, unsure if [...] and enroll ed in a program through [facility]. She also not es of increasing symptoms of restless legs.Presen ts with #5 oxycodone- on track. Reports curre nt medication regimen provides 75% pain re lief and allows for increased functionality. Denie s side effects from current medication regimen.N [...] not interested in any procedures at the [facility]. PT-SABAS-RF-N/ASCS-Cur evelinkarolinay has Meds: Opioids-Currently ta kes oxycodone - [...] to refill her medications. She will call [facility] if sh e has any questions prior [...] SE. Angie's pain has been stable since st visit. Angie is here to go [...] wi thout SE. Keyas pain has been worse since t visit. [...] t. No other concerns today Back Pain (comments) [...] ll. No other concerns today. Back Pain Severity [...] on, pain meds/drugs and rest. Back Pain Severity level is 8. Duration: [...] also. No other concerns today. Back Pain (comments) [...] massage, pain meds/drugs and rest. Back Pain Severity level is 8. Duration: [...] today . Back Pain Severity level is 6. Duration: [...] well for her. Is interested in the nevro after s he finishes with her current [...] mo re headaches. She was seen by [facility] who told her she has a screw loose. She was referred to Dr. Gonzalez at [facility]. She has not heard from t [...] do the medical cannabis vaping as h [facility] is not allowing it. She states she d oes want to do the nevro stimulator after she f/u with her neck surgeon. No other concerns to day. Back Pain (comments) Angie is here for follow up and medication refill. She has #10 oxycodone remaining-on track. She had an injection at spine and it did not work very well so [facility] will not be getting surgery. She reports sciatica pain and is curious about how to relieve it. She is very inquisitive about new treatments . She is having wrist surgery d/t carpal tunnel, t he first wrist being done tomorrow. She said s he will get [place] for 4-5 days maximum followi ng the [...] and states it aggrevated her pain. Medical [facility] continues to be effective for reduci ng her pain. She will be completing diagnosti c injections today through [facility]. No other concerns today. Back Pain Severity [...] and clyde n meds/drugs. Back Pain (comments) Anige is here toda y for follow up [...] #1 Oxycodone, surplus. She was hospitalized in [place] about a w [place] ago for her back pain. She is having an epd iural steroid injection done at [facility] tomorrow. She isn't sure how well the [...] - on track. She continues medical ma rijuana and states it has been effective. The [...] massage and pain med s/drugs. Back Pain Severity level is mo derate-severe. [...] day. Back Pain (comments) Angie is here toda [...] xpresses some interest in pursuing medical [facility]ren[facility] once she is more stable. No other [...] neck surgery. ENT referred her to an [employer] administrator for additional evaluation. No other concerns today. [...] it has not been as effective lately. [facility] is preparing for an upcoming neck surger [...] back pain. She has no medication wi her today and states she forgot them [...] PT but states it worsens her pain. e c/o insomnia. Patient completed right shou lder imaging at [facility] and reports a tear. She plans [...] will be undergoing a Cervical Fusion with [facility]. She will be following up with [facility] [...] [facility] She has noticed increased restlessne ss and pain in her legs. Her PCP is currently man aging her Lyriciqra and Angie would like to increa se this in the future. No other concerns today . Back Pain (comments) This patient is re ferred by Dr. Amna Fletcher from [facility]. Angie is here today for her initial consult regarding her back, neck and knee pain which bega n years ago and [facility]. She had a lumbar fusion in the past. She also has underwent several neck surgeri es including a cervical fusion and plans to have additional surgery done by Dr. Rodriguez at [facility]. She also has a history of Gastric B ypass knee replacements and shoulder surgery. Sherri collado has noticed more radicular symptoms in her [...] regul christian. She recently moved back to [place] from [place]. No ot her concerns today. Medical records:Dr. Rodriguez at [facility] - neck surgeon Dr. Amna Fletcher a [facility] - PCP recordsPast treatmen t:SABAS - no reliefRFA - no reliefSCS - no relie f PT Past medication:Fentanyl - not covered but go od relief 25mcg/hrPercocet - no reliefButrans - n o reliefLyrica 150 TIDIbuprofen - Gastr ic BypassTopicals - no relief Back Pain Onset: gradual with injury. Severity level is severe. Duration: ch ronic. Location of pain is middle back, lower b ack and neck. Pain is radiated to the left foot and left thigh.The patient describes th e pain as an ache, numbness and stabbing. Sympto ms are aggravated by daily activities. Symptoms are relieved by pain meds/drugs and rest. Functional Status Date Functional Assessment No Information Instructions Date Instruction Additional Informati on No Information Assessments Type Assessment Date assessment Anxiety disorder, unspecified 2 impression Anxiety and depression managed by PCP an d psychologist as needed. assessment Chronic migraine without aura, intractab le, without status migrainosus impression History of migraines. Consider Botox inj ections assessment Osteoarthritis impression History of widespread osteoarthritis. Au assessment Pain in left shoulder impression History of bilateral shoulder pain. Inje ctions through [facility] without significant relief. L shoulder r eversal surgery completed 10/27/2020. Additional hardwar e removal surgery through [facility] completed 12/30/21. Another s urgery to replace hardware completed 02/26/22 assessment Pain in left hip impression History of bilateral hip pain. Also wors e. No past relief with injections through [facility] pain reduced wi th current pain medication regimen. assessment Pain in right hip impression History of bilateral hip pain. Also wors e assessment Pain in left knee impression Chronic bilateral knee pain currently wo rse. Pt planning to follow with ortho regarding this. H/o bi lateral TKA assessment Pain in right knee impression Chronic bilateral knee pain currently wo rse. assessment Other spondylosis, cervical region impression Neck pain also worse. Hx of [...] spine impression History of thoracic pain. assessment Fibromyalgia impression History of fibromyalgia. Worse d/t weath er assessment Postlaminectomy syndrome, not elsewhere classified Aug-30-2022 impression Outside records reviewed. 2018 MRI shows [...] implant on 07/11. Improvement with reprogramming assessment [facility] (current) use of opiate analge sic impression Current treatment plan increases the pat iekole's daily activity level and quality of life. Encouraged pa daniella to participate in alternative therapies, conservative m easures, and follow a healthy lifestyle.Patient has been manag ing medications well with no signs of abuse or oversedation, and is appropriate to continue with opioid use. Last [facility] resul ts reviewed and [facility] [...]
--- OUTSIDE RECORDS SUMMARY | 2022-08-01 06:34 | XMS_ITS | Encounter Summary ---
:1965 Author Organization [place] Address [facility] [place] [address] Care Team Providers Name Role Phone Clinic, [facility] Primary Care Provide r Mor Bautista MD Unavailable Reason for Visit Reason Onset Date Comments Appointment 05/12/2021 Encounter Details Date Type Department Care Team Description 05/12/2021 [facility] Infectious Disease None Appointment Clinic [place] [phone] Social History Tobacco Use Types Packs/Day Years Used Date Current Every Day Smoker 0.5 Smokeless Tobacco: Never Used Alcohol Use Standard Drinks/Week Comments No 0 (1 standard drink = 0.6 oz pure alcoho l) Sex Assigned at Date Recorded Not on file documented as of this encounter Miscellaneous Notes Telephone Encounter - Tiffanie Georges - 05/12/2021 12:17 PM CDT [facility] Call Center Phone Message May a detailed message be left on voicemail: yes Reason for Call: Other: Pt requesting call back, pt stated she is returning a call to the clinic. Machine Trimmer did not see any notes in the pt's chart to refer to. Pt stated she is being referred from [facility] for a staph infection in her shoulder, [...] on filedocumented in this encounter Care Teams Car Builder Relationship Specialty Start Date End Date Clinic, [facility] PCP - General 06/03/[address] [address] Mor Bautista MD Assigned Infectious Disease 06/12/2106/25 [address] [place] [address] documented as of this encounter
--- OUTSIDE RECORDS SUMMARY | 2022-08-01 06:34 | XMS_ITS | Encounter Summary ---
:1965 Author Organization [place] Address [address] [place] [address] Care Team Providers Name Role Phone [facility], [facility] Primary Care Provide r Encounter Details Date Type Department Care Team Description 03/03/2021 [facility] ProviderAlea Social History Tobacco [...] on filedocumented in this encounter Care Teams Cement Finisher Relationship Specialty Start Date End Date [facility] PCP - General 06/03/171999 [place] [address] documented as of this encounter
--- OUTSIDE RECORDS SUMMARY | 2022-08-01 06:34 | XMS_ITS | Encounter Summary ---
:1965 Author Organization [place] Address [facility] [place] [address] Care Team Providers Name Role Phone [facility] Provide r Reason for Visit Reason Comments Referral Other ID Encounter Details Date Type Department Care Team Description 05/11/2021 Communication - [facility] [place] Provider, Jameel howard; [facility]ID[facility] Specialties Patient Access [address] [place] [phone] Social History Tobacco Use Types Packs/Day Years Used Date Current Every Day Smoker 0.5 Smokeless Tobacco: Never Used Alcohol Use Standard Drinks/Week Comments No 0 (1 standard drink = 0.6 oz pure alcoho l) Sex Assigned at Date Recorded Not on file documented as of this encounter Miscellaneous Notes Telephone Encounter - Historical Provider - 05/13/2021 11:10 AM CDT Date: 05/14/2021 Status: [facility] Time: 3:20 PM Length: 40 Visit Type: CONSULT [[id number]] Copay: $0.00 Provider: Mor Bautista MD Telephone [...] ONLY received??? 05/11/2021 12:05pm inside ID consult [facility], , Referring: Dr David Cohn, DX: status post shoulder replacement, left Order comments: Asking for HALI, this week. documented in this encounter Plan of Treatment Not on filedocumented as of this encounter Visit Diagnoses Not on filedocumented in this encounter Care Teams Slimer Relationship Specialty Start Date End Date Clinic, [facility] PCP - General 06/03/171999 [place] [address] documented as of this encounter
--- OUTSIDE RECORDS SUMMARY | 2022-08-01 06:34 | XMS_ITS | Encounter Summary ---
:1965 Author Organization [place] Address [address] [place] [address] Care Team Providers Name Role Phone [facility] Primary Care Provide r Encounter [...] on filedocumented in this encounter Care Teams Navigating Officer Relationship Specialty Start Date End Date [facility] PCP - General 06/03/171999 [place] [address] documented as of this encounter
--- OUTSIDE RECORDS SUMMARY | 2022-08-01 06:34 | XMS_ITS | Encounter Summary ---
:1965 Author Organization [place] Address [address] [place] [address] Care Team Providers Name Role Phone [facility] Primary Care Provide r Encounter [...] on filedocumented in this encounter Care Teams Monkey Trainer Relationship Specialty Start Date End Date [facility] PCP - General 06/03/171999 [place] [address] documented as of this encounter
--- OUTSIDE RECORDS SUMMARY | 2022-08-01 06:34 | XMS_ITS | Encounter Summary ---
:1965 Author Organization [place] Address [facility] [place] [address] Care Team Providers Name Role Phone Replaced By [facility] Primary Care Provide r Mor Bautista [...] on filedocumented in this encounter Care Teams Melter Clerk Relationship Specialty Start Date End Date [facility] PCP - General 06/03/17 [facility] [address] [place] [address] Mor Bautista MD Assigned Infectious Disease 06/12/2106/25 [address] [place] [address] documented as of this encounter
--- OUTSIDE RECORDS SUMMARY | 2022-08-01 06:34 | XMS_ITS | Encounter Summary ---
:1965 Author Organization [place] Address [address] [place] [address] Care Team Providers Name Role Phone [facility], [facility] Primary Care Provide r Encounter Details Date Type Department Care Team Description [facility]/14[facility] ProviderAlea Social History Tobacco [...] on filedocumented in this encounter Care Teams Electronic Imager Relationship Specialty Start Date End Date [facility] PCP - General 06/03/171999 [place] [address] documented as of this encounter
--- OUTSIDE RECORDS SUMMARY | 2022-08-01 06:34 | XMS_ITS | Encounter Summary ---
:1965 Author Organization [place] Address [address] [place] [address] Care Team Providers Name Role Phone [facility] Primary Care Provide r Encounter Details Date Type Department Care Team Description 03/26/2021 [facility] ProviderAlea Social History Tobacco [...] on filedocumented in this encounter Care Teams Braid Folder Relationship Specialty Start Date End Date [facility] PCP - General 06/03/17[address] [place] [address] documented as of this encounter
--- OUTSIDE RECORDS SUMMARY | 2022-08-01 06:34 | XMS_ITS | Encounter Summary ---
:1965 Author Organization [place] Address [address] [place] [address] Care Team Providers Name Role Phone [facility], [facility] Primary Care Provide r Encounter Details Date Type Department Care Team Description 04/29/2021 [facility] ProviderAlea Social History Tobacco [...] on filedocumented in this encounter Care Teams Joint Supervisor Relationship Specialty Start Date End Date [facility] PCP - General 06/03/17[address] [place] [address] documented as of this encounter
--- OUTSIDE RECORDS SUMMARY | 2022-08-01 06:34 | XMS_ITS | Encounter Summary ---
:1965 Author Organization [place] Address [address] [place] [address]. [place] [address] Care Team Providers Name Role Phone [facility] Primary Care Provide r Encounter Details Date Type Department Care Team Description 05/20/2021 Records - [facility], [facility] Health Information Management [address] [facility] [address] [place] [address] Social History Tobacco Use Types Packs/Day Years [...] athologist Signature Creatinine 0.60 0.50 - 1.50 [place] mg/dL [facility] Specimen (Source) Anatomical Location Collection Method / Collectio n Time Received Time / Laterality Volume Blood specimen 04/20/2021 (specimen) Narrative 04/20/2021 [facility] EXTERNAL RESULT Historical Provider LAB - BLOOD ORDERABLES Performing Organization Address City/State/ZIP Code Phon e Number [facility] [address] [place] [address] documented in this encounter Visit Diagnoses Not on filedocumented in this encounter Care Teams Labor Specialist Relationship Specialty Start Date End Date [facility] PCP - General 06/03/171999 [place] [address] documented as of this encounter
--- OUTSIDE RECORDS SUMMARY | 2022-08-01 06:35 | XMS_ITS | Encounter Summary ---
:1965 Author Organization [place] Address [address] [facility] [place] [address] Care Team Providers Name Role Phone Clinic, [facility] Primary Care Provide r Reason for Visit Auth/Cert Specialty Diagnoses / Procedures Referred By Contact Refer red To Contact Surgery Diagnoses URGE AND STRESS INCONTINENCE,FEMALE STRESS INCONTINENCE Sh Periop Services Procedures CYSTOSCOPY, SLING TRANSVAGINAL [address] [place] [address] Phone: Referral ID Status Reason Start Date Expiration Date Visits Requ ested Visits Authorized [id number] 1 1 Encounter Details Date Type Department Care Team Description 10/14/2017 Hospital Encounter [facility] Sitbonnie, Mary Ann ss incontinence Shayne Rodrigez MD (Primary Dx) PreOP/Phase II [place] [address] UROLOGY [address] [facility] [address] [place] [address] [phone] Social History Tobacco Use Types Packs/Day Years Used Date Current Every Day Smoker 0.5 Smokeless Tobacco: Never Used Alcohol Use Standard Drinks/Week Comments No 0 (1 standard drink = 0.6 oz pure alcoho l) Sex Assigned at Date Recorded Not on file documented as of this encounter Last Filed Vital Signs Vital Sign Reading Time Taken Comments Blood Pressure 121/86 10/14/2017 4:28 PM CNC MACHINIST Pulse - - Temperature 36.6 ??C (97.8 ??F) 10/14/2017 3:00 PM CNC MACHINIST Respiratory Rate 16 10/14/2017 4:28 PM CNC MACHINIST Oxygen Saturation 98% 10/14/2017 4:28 PM CNC MACHINIST Inhaled Oxygen Concentration - - Weight 73.9 kg (163 lb) 10/14/2017 12:15 PM CNC MACHINIST Height 152.4 cm (5') 10/14/2017 12:15 PM CNC MACHINIST Body Mass Index 31.83 10/14/2017 12:15 PM CNC MACHINIST documented in this encounter Discharge Instructions Discharge InstructionsGi King RN - 10/14/2017 1:42 PM CNC MACHINIST Post Bladder Sling Instructions Dr Stafford [phone] ?? For pain you may take a narcotic/acetaminophen combination prescription for pain relief. The mostcommon pain is in the upper thighs. This usually lasts 2-3 days. You may use cold packs to this areaas needed to reduce pain and bruising. Generally pqdy-gns-hxsbnbm medicines such as ibuprofen, 3-4 tablets every [...] vaginal sutures. ?? Post op appointments: Call [phone] to schedule an appointment to see your [...] know so they can address your concerns. MACHINIST documented in this encounter Medications at Time [...] needed for muscle spasms naloxone (NARCAN) nasal [place] 4 mg into one 0 spray nostril [...] (Takes 2 x 5000 unit tablet = 02815 unit dose) ZONISAMIDE PO Take 300 mg [...] and was given a new prescription for [place]. Prescription for Oxycodone shredded. Patient took hard copy of new [place] prescription with her.; MACHINIST Vicki Matthews RN - 10/14/2017 3:39 PM CST Patient voided, bladder scan 450cc, encouraged patient to void again. Pt voided. Bladder scan for 100-150cc. Patient comfortable and ready to go home. MACHINIST documented in this encounter Miscellaneous Notes Op [...] note, she also underwent sling placement in [facility] and on exam I was able [...] and draped in the regular fashion. A 16-Luxembourger [place] catheter was placed. Periurethral space was [...] MD MT: [id number] Name: ANGIE MOSQUERA Account: [id number] : 1965 Procedure Date: 10/14/2017 Document: [id number] cc: Rain Stafford MD MACHINIST documented in this encounter Plan of Treatment Not on filedocumented as of this encounter Procedures Procedure Name Priority Date/Time Associated Diagnosis Comme nts CREATION, VAGINAL 10/14/2017 12:46 PM URGE AND STRESS SLING, WITH CYSTOSCOPY CNC MACHINIST INCONTINENCE,FEMAL E STRESS INCONTINENCE LAB RESULT - HIM SCAN 10/11/2017 12:00 AM CNC MACHINIST EKG CARDIAC - HIM SCAN 08/15/2017 12:00 AM CDT XRAY IMAGING - HIM 07/25/2017 12:00 AM SCAN CDT documented in this encounter Results LAB RESULT - HIM SCAN (10/11/2017 12:00 AM CNC MACHINIST) Specimen (Source) Anatomical Location Collection Method / [...] ciprofloxacin (CIPRO) infusion Given 10/14/2017 12:59 PM CNC MACHINIST 400 mg 400 mg Routine, 400 mg, Intravenous, PRE-OP/PRE-PROCEDURE, Starting on Tue10/14/17 at 1155, For 1 dose, Irritant., Indications: Perioperative Pharmacoprophylaxis, Pre-procedure New Bag 10/14/2017 12:26 PM CNC MACHINIST 400 mg fentaNYL (PF) (SUBLIMAZE) injection 25-5 0 mcg Given 10/14/2017 2:01 PM CNC MACHINIST 50 mcg 25-50 mcg, Intravenous, EVERY 2 [...] 100 mcg., PACU Given 10/14/2017 1:50 PM CNC MACHINIST 50 mcg HYDROmorphone (PF) (DILAUDID) injection Given 10/14/2017 2:42 PM CNC MACHINIST 0.5 mg 0.3-0.5 mg 0.3-0.5 mg, Intravenous, [...] minutes., PACU/Phase II Given 10/14/2017 2:18 PM CNC MACHINIST 0.5 mg ondansetron (ZOFRAN) injection 4 mg Given 10/14/2017 2:18 PM CNC MACHINIST 4 mg 4 mg, Intravenous, EVERY 30 [...] tablet 5 mg Given 10/14/2017 2:54 PM CNC MACHINIST 5 mg 5 mg, Oral, ONCE, On Tue10/14/17 at 1500, For 1 dose, PACU scopolamine (TRANSDERM) 72 hr Given 10/14/2017 12:43 PM CNC MACHINIST 1 pa tch Behind Left Ear patch 1 patch 1 patch, Transdermal, EVERY 72 HOURS, First dose on Tue10/14/17 at 1245, Apply patch to skin, behind ear. Remove every 72 hours. Each 1.5 mg patch delivers 1 mg of scopolamine., Pre-procedure documented in this encounter Active and Recently Administered Medications Times are shown in CNC MACHINIST. Scheduled Medication Order 10/12/2017 10/13/2017 10/14/2017 ciprofloxacin (CIPRO) infusion 400 mg (COMPLETED) 1226 (New Bag - Provider: Rona Hanks RN)1259 (Given - Provider: Gayatri Combs APRN BOOMBOAT OPERATOR) Routine, 400 mg, Intravenous, PRE-OP/PRE -PROCEDURE, Starting [...] RADHA) 0.3-0.5 mg, Intravenous, EVERY 10 MIN UT N, other, acute pain.?May administer if Respiratory [...] 1544 documented in this encounter Care Teams Assessment Analyst Relationship Specialty Start Date End Date [facility], [facility] PCP - General 06/03/171999 [place] [address] documented as of this encounter
--- OUTSIDE RECORDS SUMMARY | 2022-08-01 06:35 | XMS_ITS | Encounter Summary ---
:1965 Author Organization [facility] Address [address] [place] [address] Care Team Providers Name Role Phone Jose Holden MD Primary Care Provider [phone] Reason for Visit Reason Comments Medication Request Encounter Details Date Type Department Care Team Description 12/08/2019 Telephone Careline Unknown, Physician Medication Request [address] [place], [place] [address] [place], [place] [phone] (Wo rk) Social History Tobacco Use Types [...] pain medication. Pt advised to surgeon at [place]. ICK KLEANER OPERATOR documented in this encounter Plan of Treatment Not on filedocumented as of this encounter Visit Diagnoses Not on filedocumented in this encounter Care Teams Supervisor Veneer Relationship Specialty Start Date End Date Jose Holden MD PCP - General Otolaryngology 12/14/17 [address] [place] [address] documented as of this encounter
--- OUTSIDE RECORDS SUMMARY | 2022-08-01 06:35 | XMS_ITS | Encounter Summary ---
:1965 Author Organization [facility] Address [address] [place] [address] Care Team Providers Name Role Phone Jose Holden MD Primary Care Provider [phone] Encounter Details Date Type Department Care Team Description 03/06/2019 [facility]ent for [facility] Tony Alvarado MD [facility] Pain Management [address] TREATMENT [address] [place] [address] [phone] Social History Tobacco Use Types Packs/Day Years [...] on filedocumented in this encounter Care Teams Political Science Faculty Member Relationship Specialty Start Date End Date Jose Holden MD PCP - General Otolaryngology 12/14/[address] [place] [address] documented as of this encounter
--- OUTSIDE RECORDS SUMMARY | 2022-08-01 06:35 | XMS_ITS | Encounter Summary ---
:1965 Author Organization [facility] Address [address] [place] [address] Care Team Providers Name Role Phone Jose Holden MD Primary Care Provider [phone] Encounter Details Date Type Department Care Team Description 02/06/2019 Consent for [facility] Tony Alvarado MD FOR [place]/PROCEDURE ent Pain Management [address] [place] [phone] Social History Tobacco Use Types Packs/Day Years [...] on filedocumented in this encounter Care Teams Horse Shoer Relationship Specialty Start Date End Date Jose Holden MD PCP - General Otolaryngology 12/14/[address] [place], [place] [phone] documented as of this encounter
--- OUTSIDE RECORDS SUMMARY | 2022-08-01 06:35 | XMS_ITS | Encounter Summary ---
:1965 Author Organization [place] Address [address] [facility] [place] [address] Care Team Providers Name Role Phone Clinic, [facility] Primary Care Provide r Reason for Visit Auth/Cert Specialty Diagnoses / Procedures Referred By Contact Refer red To Contact Surgery Diagnoses URGE AND STRESS INCONTINENCE,FEMALE STRESS INCONTINENCE Sh Periop Services Procedures CYSTOSCOPY, SLING TRANSVAGINAL [address], [address] [place] [address] Phone: Referral ID Status Reason Start Date Expiration Date Visits Requ ested Visits Authorized [id number] 1 1 Encounter Details Date Type Department Care Team Description 10/14/2017 Surgery [facility] [place], CYSTOSCOPY ,TVT SLING [place] [facility] ashwin Rodrigez MD [address], [address] [facility] [address] [place] [address] [facility] [phone] [place] [address] (Wo rk) Surgery Details Date/Time Status Location OR Service Patient Case Class Case Tr auma Class Type Case? 10/14/17 1:00 Posted OR OR [facility] Urology Same Day PM Surgery Panel 1 [...] Comments Blood Pressure 93/59 10/14/2017 2:15 PM INSURANCE POLICY CLERK Pulse - - Temperature 35.7 ??C (96.3 ??F) 10/14/2017 1:31 PM INSURANCE POLICY CLERK Respiratory Rate 14 10/14/2017 2:15 PM INSURANCE POLICY CLERK Oxygen Saturation 93% 10/14/2017 2:15 PM INSURANCE POLICY CLERK Inhaled Oxygen Concentration - - Weight 73.9 kg (163 lb) 10/14/2017 12:15 PM INSURANCE POLICY CLERK Height 152.4 cm (5') 10/14/2017 12:15 PM INSURANCE POLICY CLERK Body Mass Index 31.83 10/14/2017 12:15 PM INSURANCE POLICY CLERK documented in this encounter Discharge Instructions Discharge InstructionsGi King, RADHA - 10/14/2017 1:42 PM INSURANCE POLICY CLERK Post Bladder Sling Instructions Dr Stafford [phone] ?? For pain you may take a narcotic/acetaminophen combination prescription for pain relief. The mostcommon pain is in the upper thighs. This usually lasts 2-3 days. You may use cold packs to this areaas needed to reduce pain and bruising. Generally ewbl-qte-[id number] medicines such as ibuprofen, 3-4 tablets every [...] vaginal sutures. ?? Post op appointments: Call [phone] to schedule an appointment to see your [...] know so they can address your concerns. RANCE POLICY CLERK documented in this encounter Medications at Time [...] needed for muscle spasms naloxone (NARCAN) nasal [place] 4 mg into one 0 spray nostril [...] (Takes 2 x 5000 unit tablet = 04167 unit dose) ZONISAMIDE PO Take 300 mg [...] and was given a new prescription for [place]. Prescription for Oxycodone shredded. Patient took hard copy of new [place] prescription with her.; RANCE POLICY CLERK Vicki Matthews RN - 10/14/2017 3:39 PM CST Patient voided, bladder scan 450cc, encouraged patient to void again. Pt voided. Bladder scan for 100-150cc. Patient comfortable and ready to go home. RANCE POLICY CLERK documented in this encounter Miscellaneous Notes Op [...] note, she also underwent sling placement in [facility] and on exam I was [...] and draped in the regular fashion. A 16-Ukrainian [place] catheter was placed. Periurethral space was [...] EM#[id number] Name: ANGIE MOSQUERA MRN: [id number] Account: [id number] : 1965 Procedure Date: 10/14/2017 Document: [id number] cc: Rain Stafford MD RANCE POLICY CLERK documented in this encounter Plan of Treatment Not on filedocumented as of this encounter Procedures Procedure Name Priority Date/Time Associated Diagnosis Comme nts CREATION, VAGINAL 10/14/2017 12:46 PM URGE AND STRESS SLING, WITH CYSTOSCOPY INSURANCE POLICY CLERK INCONTINENCE,FEMAL E STRESS INCONTINENCE LAB RESULT - HIM SCAN 10/11/2017 12:00 AM INSURANCE POLICY CLERK EKG CARDIAC - HIM SCAN 08/15/2017 12:00 AM CDT XRAY IMAGING - HIM 07/25/2017 12:00 AM SCAN CDT documented in this encounter Results LAB RESULT - HIM SCAN (10/11/2017 12:00 AM INSURANCE POLICY CLERK) Specimen (Source) Anatomical Location Collection Method / [...] 1:21 PM 30 mLs Operative EPINEPHrine 1:200,000 INSURANCE POLICY CLERK Sit e/Surgical Site injection PRN, Starting on Tue10/14/17 at 1321, Intra-procedure ciprofloxacin (CIPRO) infusion 400 mg Given 10/14/2017 12:59 PM INSURANCE POLICY CLERK 400 mg Routine, 400 mg, Intravenous, PRE-OP/PRE-PROCEDURE, Starting on Tue10/14/17 at 1155, For 1 dose, Irritant., Indications: Perioperative Pharmacoprophylaxis, Pre-procedure New Bag 10/14/2017 12:26 PM INSURANCE POLICY CLERK 400 mg fentaNYL (PF) (SUBLIMAZE) injection 25-5 0 mcg Given 10/14/2017 2:01 PM INSURANCE POLICY CLERK 50 mcg 25-50 mcg, Intravenous, EVERY 2 [...] 100 mcg., PACU Given 10/14/2017 1:50 PM INSURANCE POLICY CLERK 50 mcg HYDROmorphone (PF) (DILAUDID) injection Given 10/14/2017 2:42 PM INSURANCE POLICY CLERK 0.5 mg 0.3-0.5 mg 0.3-0.5 mg, Intravenous, [...] minutes., PACU/Phase II Given 10/14/2017 2:18 PM INSURANCE POLICY CLERK 0.5 mg ondansetron (ZOFRAN) injection 4 mg Given 10/14/2017 2:18 PM INSURANCE POLICY CLERK 4 mg 4 mg, Intravenous, EVERY 30 [...] tablet 5 mg Given 10/14/2017 2:54 PM INSURANCE POLICY CLERK 5 mg 5 mg, Oral, ONCE, On Tue10/14/17 at 1500, For 1 dose, PACU scopolamine (TRANSDERM) 72 hr Given 10/14/2017 12:43 PM INSURANCE POLICY CLERK 1 pa tch Behind Left Ear patch 1 patch 1 patch, Transdermal, EVERY 72 HOURS, First dose on Tue10/14/17 at 1245, Apply patch to skin, behind ear. Remove every 72 hours. Each 1.5 mg patch delivers 1 mg of scopolamine., Pre-procedure skin closure adhesive Given 10/14/2017 1:19 PM 1 applicator Operative (DERMABOND) vial INSURANCE POLICY CLERK Site/Surgical S ite PRN, Starting on Tue10/14/17 at 1319, Intra-procedure sodium chloride 0.9% Given 10/14/2017 1:09 PM 1,000 mLs Operative (bottle) irrigation INSURANCE POLICY CLERK Site/Surgical S ite PRN, Starting on Tue10/14/17 at 1309, Intra-procedure sterile water irrigation Given 10/14/2017 1:08 PM 3,000 mLs Operative (bag) INSURANCE POLICY CLERK Site/Surgical S ite PRN, Intra-procedure, Starting on Tue10/14/17 at 1308, Until Tue10/14/17 at 1544 documented in this encounter Active and Recently Administered Medications Times are shown in INSURANCE POLICY CLERK. Scheduled Medication Order 10/12/2017 10/13/2017 10/14/2017 ciprofloxacin (CIPRO) infusion 400 mg (COMPLETED) 1226 (New Bag - Provider: Rona Hanks RN)1259 (Given - Provider: Gayatri Combs APRN SAMPLE DYE MIXER) Routine, 400 mg, Intravenous, PRE-OP/PRE -PROCEDURE, Starting [...] RADHA) 0.3-0.5 mg, Intravenous, EVERY 10 MIN [place] N, other, acute pain.?May administer if Respiratory [...] 1544 documented in this encounter Care Teams Tray Delivery Aide Relationship Specialty Start Date End Date Clinic, [facility] PCP - General 06/03/171999 [place] [address] documented as of this encounter
--- OUTSIDE RECORDS SUMMARY | 2022-08-01 06:35 | XMS_ITS | Encounter Summary ---
:1965 [facility] Address [address] [address] Care Team Providers Name Role Phone Jose Holden MD Primary Care Provider [phone] Encounter Details Date Type Department Care Team Description 11/10/2018 Emergency Room External to External, Provid er FALL/HEADACHE NECK LT No address [place] [address] Social History Tobacco Use Types Packs/Day Years [...] filedocumented in this encounter Care Teams Medical Record Clerk Relationship Specialty Start Date End Date Jose Holden MD PCP - General Otolaryngology 12/14/17 [place] [address] documented as of this encounter
--- OUTSIDE RECORDS SUMMARY | 2022-08-01 06:35 | XMS_ITS | Encounter Summary ---
:1965 Author Organization [facility] Address [address] [place] [address] Care Team Providers Name Role Phone Jose Holden MD Primary Care Provider Reason for Visit Reason Comments Revisit repeat injections Occipital VS Trigger point Encounter Details Date Type Department Care Team Description 02/06/2019 Office Visit [facility], Bilateral occ ipital neuralgia (Primary Dx); [facility] Carole Bowden Myalgia; Pain Management [address] Fibromyalgia; [address] 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 Tony Pittman MD Pain Medicine documented in this encounter Progress Notes Tony Pittman MD - 02/06/2019 2:30 PM CDT [facility] Follow-up Visit 02/06/2019 [...] Oxycodone 5 mg Q6H - Prescribes by [facility], has been taking for many [...] at a pain clinic in the past. [facility] physical therapy: Past Acupuncture: None [...] anterior cervical fusion 2017 Dr. Ihsan Brooke, [facility] past surgical history reviewed with patient. Medications: [...] ??? medical cannabis patient certified Take 1 [place] by mouth . ??? naloxone (NARCAN) 4 [...] Gain No facility-administered medications prior to visit. [place] and [place] Prescription Monitoring Program reviewed Allergies: Allergies Allergen [...] in her mother. Social history:she lives in [place], [place].she is not currently working. Smokin/2 ppd. [...] These are unchanged from previous. Barriers: 1. medical dir opioid use Plan: 1. Patient education: I [...] Rehabilitation [facility] Pain Management This note created [...] myelopathy documented in this encounter Care Teams Fan Mail Editor Relationship Specialty Start Date End Date Jose Holden MD PCP - General Otolaryngology 12/14/[address] [place] [address] documented as of this encounter
--- OUTSIDE RECORDS SUMMARY | 2022-08-01 06:35 | XMS_ITS | Encounter Summary ---
:1965 Author Organization [facility] Address [address] [place] [address] Care Team Providers Name Role Phone Jose Holden MD Primary Care Provider [phone] Encounter Details Date Type Department Care Team Description 12/26/2018 Consent for [facility], CONSENT FOR Procedure/[facility] Tony Alvarado MD PROCEDURE ent Pain Management [address] [place] [address] [phone] Social History Tobacco Use Types Packs/Day Years [...] on filedocumented in this encounter Care Teams Photograph Printer Relationship Specialty Start Date End Date Jose Holden MD PCP - General Otolaryngology 12/14/[address] [place] [address] documented as of this encounter
--- OUTSIDE RECORDS SUMMARY | 2022-08-01 06:35 | XMS_ITS | Encounter Summary ---
:1965 [facility] Address [address] [place] [address] Care Team Providers Name Role Phone Jose Holden MD Primary Care Provider Reason for Referral Therapies (Routine) - Closed Specialty Diagnoses / Procedures Referred By Contact Refer red To Contact Diagnoses S/P cervical spinal fusion Pete Gonzalez MD [facility] [address] [place] [address] Referral ID Status Reason Start Date Expiration Date Visits Requ ested Visits Authorized [id number] Closed 12/26/2018 02/24/2019 1 1 Scheduling Instructions Your provider has recommended an appoint ment with a [facility] Physical Therapist. Please stop at the clinic check out desk for assistance with scheduling or if you prefer to call for your appointment you may call [facility] at [phone]. We suggest you call your [facility] insurance company about your coverage and benefits for this appointment. EQUIPMENT INSPECTOR HELPER Reason for Visit Reason Comments Revisit Encounter Details Date Type Department Care Team Description 12/26/2018 Office Visit [facility] Pete Gonzalez, S/P miguelito al spinal [facility] fusion (Primary Dx) [facility] [address] [facility] [address] [place] [address] [place] [address] [phone] Social History Tobacco Use Types Packs/Day Years [...] Comments Blood Pressure 115/72 12/26/2018 1:48 PM FIRE EQUIPMENT INSPECTOR HELPER Pulse 70 12/26/2018 1:48 PM FIRE EQUIPMENT INSPECTOR HELPER Temperature 36.5 ??C (97.7 ??F) 12/26/2018 1:48 PM FIRE EQUIPMENT INSPECTOR HELPER Respiratory Rate - - Oxygen Saturation - - Inhaled Oxygen Concentration - - Weight 71.2 kg (157 lb) 12/26/2018 1:48 PM FIRE EQUIPMENT INSPECTOR HELPER Height 152.4 cm (5') 12/26/2018 1:48 PM FIRE EQUIPMENT INSPECTOR HELPER Body Mass Index 30.66 12/26/2018 1:48 PM FIRE EQUIPMENT INSPECTOR HELPER documented in this encounter Patient Instructions Patient [...] your understanding. Please call the Neurosurgery Center [phone] with any further questions or concerns or if your symptoms worsen. Thank you for coming to see us today. We are your partner. EQUIPMENT INSPECTOR HELPER documented in this encounter Progress Notes Pete [...] at her current physical therapy Center at [facility] and also continued pain management in the [...] is prone to typos and grammatical errors. EQUIPMENT INSPECTOR HELPER documented in this encounter Plan of Treatment Scheduled Referrals Name Type Priority Associated Diagnoses Order S [facility] Physical Therapy Referral Routine S/P cervical spinal fusi on Ordered: 12/26/2018 documented as of this encounter Visit Diagnoses Diagnosis S/P cervical spinal fusion - Primary Arthrodesis status documented in this encounter Care Teams Electrician Radio Relationship Specialty Start Date End Date Jose Holden MD PCP - General Otolaryngology 12/14/17 [place] [address] documented as of this encounter
--- OUTSIDE RECORDS SUMMARY | 2022-08-01 06:35 | XMS_ITS | Encounter Summary ---
:1965 Author Organization [facility] Address [address] [place] [address] Care Team Providers Name Role Phone Jose Holden MD Primary Care Provider [phone] Reason for Visit Procedure/Equipment (Routine) - Incomplete Specialty Diagnoses / Procedures Referred By Contact Refer red To Contact Diagnoses S/P cervical spinal fusion Sirisha Rankin, Procedures XR Cervical Spine AP/Lat Upright CROSSING SUPERVISOR, MANAGER PET [address] [place] [address] Referral ID Status Reason Start Date Expiration Date Visits V isits Requested Authorized [id number] Incomplete 10/10/2018 01/09/2020 1 1 Encounter Details Date Type Department Care Team Description 12/26/2018 Ancillary [facility] Sneha Maher, S/P cervi france Procedure [facility] Sirisha Celaya, CROSSING SUPERVISOR, spinal fusion Radiology MANAGER PET [address] [place] [address] [place], [place] [phone] [facility] Social History Tobacco Use Types Packs/Day [...] spin al Results for this AP/LAT UPRIGHT ELECTRICAL SIGN WIRER fusion procedure are in the results section. documented in this encounter Results XR Cervical Spine AP/Lat Upright (12/26/2018 1:44 PM ELECTRICAL SIGN WIRER) Anatomical Region Laterality Modality Spine, C-Spine, Neck Computed Radiograph y Specimen (Source) Anatomical Collection Method Collection Time Re ceived Time Location / / Volume Laterality 12/26/2018 1:44 PM ELECTRICAL SIGN WIRER Narrative 12/26/2018 3:41 PM ELECTRICAL SIGN WIRER EXAM: XR CERVICAL SPINE AP/LAT UPRIGHT LOCATION: [facility] DATE/TIME: 12/26/2018 1:44 PM INDICATION: Follow-up post [...] EXAM: XR CERVICAL SPINE AP/LAT UPRIGHT LOCATION: [facility] DATE/TIME: 12/26/2018 1:44 PM INDICATION: Follow-up post [...] C1-2 level on lateral view. Sirisha Maher CROSSING SUPERVISOR, MANAGER PET RAD GD documented in this encounter Visit Diagnoses Diagnosis S/P cervical spinal fusion Arthrodesis status documented in this encounter Care Teams Ward Assistant Relationship Specialty Start Date End Date Jose Holden MD PCP - General Otolaryngology 12/14/17 [place] [address] documented as of this encounter
--- OUTSIDE RECORDS SUMMARY | 2022-08-01 06:35 | XMS_ITS | Encounter Summary ---
:1965 Author Organization [facility] Address [address] [place] [address] Care Team Providers Name Role Phone Jose Holden MD Primary Care Provider Reason for Referral Consult/Transfer Care (Routine) - Closed Specialty Diagnoses / Procedures Referred By Contact Refer red To Contact Diagnoses Traumatic brain injury, without loss of consciousness, initial encounter (HRC) Tony Pittman MD [address] [place] [address] Referral ID Status Reason Start Date Expiration Date Visits Requ ested Visits Authorized [id number] Closed 12/26/2018 03/26/2020 1 1 Scheduling Instructions Your provider [facility] You may call to schedule your appointment. If you prefer, a director of orthopedics will contact you [facility] the next 3 business days to assist you in setting up this appointment. LOPMENT SPEC Reason for Visit Reason Comments Revisit Bilateral cervical/thoracic trigger point injections Encounter Details Date Type Department Care Team Description 12/26/2018 Office Visit Tony Huggins occipital neuralgia (Primary Dx); [facility] Myalgia; Management [address] H/O cervical spinal arthrodesis; [address] [place], [place] Traumatic brain injury, with out loss of consciousness, initial encounter (HRC) [place] [address] [phone] Social History Tobacco Use Types Packs/Day Years [...] Comments Blood Pressure 115/72 12/26/2018 2:48 PM DEVELOPMENT SPEC Pulse 70 12/26/2018 2:48 PM DEVELOPMENT SPEC Temperature - - Respiratory Rate - - [...] treatment plan is, please contact me via [employer] online messaging or call the office at and ask to speak to a nurse. Tony Pittman MD Pain Medicine LOPMENT SPEC documented in this encounter Progress Notes Tony Pittman MD - 12/26/2018 2:15 PM CST [facility] Follow-up Visit 08/14/2018 Interim [...] Patient continues to get chronic oxycodone from [facility] in [place] and does not planon decreasing her dosage. [...] 5 mg Q6H - Prescribes by [facility], has been taking for [...] a pain clinic in the past. [facility] physical therapy: Past Acupuncture: [...] anterior cervical fusion 2016 Dr. Ihsan Brooke, [facility] past surgical history reviewed with patient. [...] ??? medical cannabis patient certified Take 1 [place] by mouth . ??? naloxone (NARCAN) 4 [...] Gain No facility-administered medications prior to visit. [place] and [place] Prescription Monitoring Program reviewed Allergies: [...] in her mother. Social history:she lives in [place], [place].she is not currently working. Smokin/2 ppd. [...] to traumatic brain injury clinic. Barriers: 1. oil heaterman opioid use Plan: 1. Patient education: I [...] MD Pain Medicine Physical Medicine and Rehabilitation [facility] Pain Management This document serves as a record of services personally performed by Tony Pittman MD. It was created on his behalf by Gillian Harding, a trained medical engineer. The creation of this record is based on the scribe's personal observations and the provider's statements to her. The document has been checked and approved by the attending provider. LOPMENT SPEC documented in this encounter Plan of Treatment Scheduled Referrals Name Type Priority Associated Diagnoses Order S [facility] Referral Routine Traumatic brain injury, with out loss Ordered: 12/26/2018 of consciousness, initial en counter (HRC) documented as of this encounter Visit Diagnoses Diagnosis Bilateral occipital neuralgia - Primary Myalgia Mylagia and myositis, unspecified H/O cervical spinal arthrodesis Arthrodesis status Traumatic brain injury, without loss of consciousness, initial encounter (HRC) documented in this encounter Care Teams Malt House Supervisor Relationship Specialty Start Date End Date Jose Holden MD PCP - General Otolaryngology 12/14/[address] [place] [address] documented as of this encounter
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
--- OUTSIDE RECORDS SUMMARY | 2022-08-01 06:35 | XMS_ITS | Encounter Summary ---
:1965 Author Organization [facility] Address [address] [place] [address] Care Team Providers Name Role Phone Unavailable Primary Care Provider Unavailable Reason for Visit Reason Onset Date Comments Previsit 12/11/2014 12/19/[address] Juice mackenzie Encounter Details Date Type Department Care Team Description 12/11/2014 PRE VISIT Yasmin, Previsit ( OV [facility] Shauna Alejo MD with Dr Humphrey) [place] [id number] [place], [place] [phone] (Wo rk) Social History Tobacco Use Types Packs/Day Years Used Date Never Assessed Sex Assigned at Date Recorded Not on file documented as of this encounter Plan of Treatment Not on filedocumented as of this encounter Visit Diagnoses Not on filedocumented in this encounter
--- OUTSIDE RECORDS SUMMARY | 2022-08-01 06:35 | XMS_ITS | Encounter Summary ---
:1965 Author Organization [facility] Address Counts include 234 beds at the [facility] [place] [address] Care Team Providers Name Role Phone Clinic, Ingris Safford Primary Care Provider [phone] Reason for Visit Reason Comments Fall Encounter Details Date Type Department Care Team Description 05/17/2017 Emergency [facility] Jose Guadalupe Betancourt MD Acute neck pain; [facility] Emergency Dep t EMERGENCY PHYSICIANS Shoulder strain, unspecified laterality, initial encounter [address] [place], [place] [address] [facility] [phone] [place] [address] [place], [place] [phone] (Wo rk) Social History Tobacco Use Types [...] contain Tylenol?? (acetaminophen), including Vicodin??, Tylenol #3??, [place]??, Lortab??, and Percocet??. You should not take [...] contain Tylenol?? (acetaminophen), including Vicodin??, Tylenol #3??, [place]??, Lortab??, and Percocet??. You should not take [...] neck fusion Reports taking tylenol 2 hrs QUALITY ASSURANCE MANAGER Jose Guadalupe Betancourt MD - 05/17/2017 7:20 [...] Surgical History: Abdomen surgery Back surgery Cholecystectomy WELDING PANTOGRAPH MACHINE OPERATOR surgery Orthopedic Surgery Family History: History reviewed. [...] I spoke with Dr. Davis of the [facility] regarding patient's presentation, findings, [...] and the provider's statements to me. 05/17/2017 [facility] EMERGENCY DEPARTMENT Jose Guadalupe Betancourt MD 05/18/17 0032 documented in this encounter Plan of Treatment Not on filedocumented as of this encounter Procedures Procedure Name Priority Date/Time Associated Diagnosis Comme nts XR HUMERUS LEFT G/E STAT 05/17/2017 9:13 PM Re sults for this 2 VIEWS CDT procedure are i n the results section. XR SHOULDER LEFT STAT 05/17/2017 9:13 PM Resul ts for this G/E 3 VIEWS CDT procedure are i n the results [...] NAZANIN MCCORMACK MD Jose Guadalupe Betancourt MD [facility] ORDERABLES documented in this encounter Visit [...] 1 tablet 1 tablet, Oral, ONCE, On 6/20/17 at 2006, For 1 dose, Maximum acetaminophen [...] grams documented in this encounter Care Teams Insulation Foreman Relationship Specialty Start Date End Date [facility], [facility] PCP - General 05/17/17 06/02/17 [address] [place] [address] documented as of this encounter
--- OUTSIDE RECORDS SUMMARY | 2022-08-01 06:35 | XMS_ITS | Encounter Summary ---
:1965 Author Organization [place] Address [address] [facility] [place] [address] Care Team Providers Name Role Phone Unavailable Primary Care Provider Unavailable Encounter Details Date Type Department Care Team Description 07/29/2011 Emergency room [facility] EMERGENCY NURY CISNEROS Results [address] [place], [place] [address] Social History Tobacco Use Types Packs/Day Years Used Date Never Assessed Sex Assigned at Date Recorded Not on file documented as of this encounter Progress Notes Interface, Oyster Washer - 07/31/2011 10:23 AM CDT FINAL Chief [...] she recently came to the area from [place] to visit her father (approximately two weeks [...] with a friend. The patient resides in [place], and [facility] her father. The patient states that she has been smoking one pack of cigarettes per day since 1973. Her primary care physician is Dr. Holley De La Rosa in [place], [place]. \n Her chronic pain doctor is Dr. Garcia at [facility] in [place]. - Is negative for Illicit drug use, [...] MT: JOSÉ MIGUEL Name: KAYLIN MOSQUERA Account: [id number] : 1965 Visit Date: 07/29/2011 Document: [id number] documented in this encounter Plan of Treatment Not on filedocumented as of this encounter Visit Diagnoses Not on filedocumented in this encounter
--- OUTSIDE RECORDS SUMMARY | 2022-08-01 06:35 | XMS_ITS | Encounter Summary ---
:1965 Author Organization [facility] Address [address] [place] [address] Care Team Providers Name Role Phone Jose Holden MD Primary Care Provider [phone] Reason for Visit Reason Comments Revisit trigger point injections/occ ipital nerve blocks Encounter Details Date Type Department Care Team Description 03/06/2019 Office Visit [facility], Bilateral occ ipital neuralgia (Primary Dx); [facility] Carole Bowden Myalgia; Pain Management [address] Cervical vertebral fusion; [address] [place], [place] Spondylosis of cervical princess on without [place] [phone] Social History Tobacco Use Types Packs/Day Years [...] treatment plan is, please contact me via [employer]Store[employer] online messaging or call the office at and ask to speak to a nurse. Tony Pittman MD Pain Medicine documented in this encounter Progress Notes Tony Pittman MD - 03/06/2019 2:45 PM CDT [facility] Follow-up Visit 03/06/2019 [...] Oxycodone 5 mg Q6H - Prescribes by [facility], has been taking for [...] at a pain clinic in the past. [facility] physical therapy: Past Acupuncture: [...] anterior cervical fusion 2016 Dr. Ihsan Brooke, [facility] past surgical [...] ??? medical cannabis patient certified Take 1 [place] by mouth . ??? naloxone (NARCAN) 4 [...] Gain No facility-administered medications prior to visit. [place] and MD Prescription Monitoring Program reviewed Allergies: Allergies Allergen [...] in her mother. Social history:she lives in [place], [place].she is not currently working. Smokin/2 ppd. [...] limited. Significant posterior surgical deformity of neck. Insurance Loss Assessor to palpation bilateral levator scapulae, splenius, trapezius [...] These are unchanged from previous. Barriers: 1. [facility] opioid use Plan: 1. Patient education: I [...] MD Pain Medicine Physical Medicine and Rehabilitation [facility] Pain Management This note created [...] myelopathy documented in this encounter Care Teams Line Controller Relationship Specialty Start Date End Date Jose Holden MD PCP - General Otolaryngology 12/14/[address] [place] [address] documented as of this encounter
--- OUTSIDE RECORDS SUMMARY | 2022-08-01 06:35 | XMS_ITS | Encounter Summary ---
:1965 Author [facility] Address [address] [place] [address] Care Team Providers Name Role Phone Jose Holden MD Primary Care Provider [phone] Encounter Details Date Type Department Care Team [...] 11/10/2018 12:00 AM R esults for this AUTOCAD DETAILER procedure are i n the results section. documented in this encounter Results CT SCAN SPINE--SCAN (11/10/2018 12:00 AM AUTOCAD DETAILER) Anatomical Region Laterality Modality Other Specimen (Source) Anatomical Location Collection Method / Collectio n Time Received Time / Laterality Volume 11/10/2018 Narrative This result has an attachment that is no t available. Phy No Primary/Referring DUMMY/OTHER/AR documented in this encounter Visit Diagnoses Not on filedocumented in this encounter Care Teams Store Cashier Relationship Specialty Start Date End Date Jose Holden MD PCP - General Otolaryngology 12/14/[address] [place] [address] documented as of this encounter
--- OUTSIDE RECORDS SUMMARY | 2022-08-01 06:35 | XMS_ITS | Encounter Summary ---
:1965 Author Organization [place] Address [facility] [place] [address] Care Team Providers Name Role Phone Unavailable Primary Care Provider Unavailable Encounter Details Date Type Department Care Team Description 07/29/2011 Historic Notes INTERFACED REPORT Interface, Transcript onMD Social History Tobacco Use Types Packs/Day Years Used Date Never Assessed Sex Assigned at Date Recorded Not on file documented as of this encounter Progress Notes Interface, Electronic Drafter - 08/30/2011 5:48 PM CDT Allergies ?? [...]
--- OUTSIDE RECORDS SUMMARY | 2022-08-01 06:35 | XMS_ITS | Encounter Summary ---
:1965 Author [facility] Address [address] [place] [address] Care Team Providers Name Role Phone Jose Holden MD Primary Care Provider [phone] Reason for Referral Procedure/Equipment (Routine) - Closed Specialty Diagnoses / Procedures Referred By Contact Refer red To Contact Diagnoses Dizziness Concussion with loss of consciousness of 30 minutes or less, subsequent encounter Alyse Carias, PT [address] [place] [address] Referral ID Status Reason Start Date Expiration Date Visits Requ ested Visits Authorized [id number] Closed 03/06/2019 06/04/2020 20 20 Scheduling Instructions . Reason for Visit Reason Comments Concussion Therapies (Routine) - Closed Specialty Diagnoses / Procedures Referred By Contact Refer red To Contact Diagnoses Impairment of balance Dizziness Blanka Mead, TOOTH GRINDER, CN P [address] [place] [address] Referral ID Status Reason Start Date Expiration Date Visits Requ ested Visits Authorized [id number] Closed 02/16/2019 04/17/2019 1 1 Encounter Details Date Type Department Care Team Description 03/06/2019 Office Visit Alyse Bee Dizziness (Primary Dx); [facility] A, PT Concussion with loss of consciousness of 30 minutes or less, subsequent encounter Physical Therapy [address] [place] [phone] Social History Tobacco Use Types Packs/Day Years [...] impacting her status (scheduled for surgery at [facility] on 02/28/19). Tinnitus- scheduled for hearing assessment [...] ER right away. She was seen at [facility]. ?? She has a past medical [...] limited function due to PMH Lives in [place]. Independent with ADLs, driving. Current Level of Function: Currently not-employed. Lives alone in apartment. Difficulty bending down She does endorse LOS in home setting. Previous Therapy for This Condition: PT for neck (01/23/19- refaxed orders) Patient Goals: Return to previous level of function and Increased function OBJECTIVE Posture/Observations: alert, oriented, cooperative. forward head posturing. Carrying multiple bags and able to picking table worker from floor to chair without LOS. Functional [...] within her allowable cervical ROM). Access Code: [email or web address] URL: [email or web address] Date: 03/06/2019 Prepared by: Alyse Carias Exercises Standing Gaze Stabilization with Head Rotation - 1-3 reps - 30-40 seconds - 3x daily - 7x weekly Education regarding Rule of 2 -Discussed option of closer location to her home yet noted she would be able to attend at [facility]. Patient's Response to Therapy: Good Home Program [...] encounter documented in this encounter Care Teams Unit Clerk Relationship Specialty Start Date End Date Jose Holden MD PCP - General Otolaryngology 12/14/17 [facility] [place] [address] documented as of this encounter
--- OUTSIDE RECORDS SUMMARY | 2022-08-01 06:35 | XMS_ITS | Encounter Summary ---
:1965 Author Organization [place] Address [facility] [place] [address] Care Team Providers Name Role Phone Clinic, [facility] Primary Care Provide r Reason for Visit Reason Comments Back Pain Neck Pain Encounter Details Date Type Department Care Team Description 06/03/2017 Emergency [facility] Heggestad, Zoey Acute mi dline low back pain, with sciatica presence unspecified; [facility] Emergency Dep phuong Flowers PA-C Chronic neck pain [address] [facility] EMERGENCY PHYSICIANS [place], [place] [address] [address] [facility] [phone] [place], [place] [address] (Wo rk) Social History [...] that she [facility]. Pt reports that she left [facility] yesterday after they did not address her issues. Pt states that she would like something to take her painaway and upset that has not been receiving adequate pain control. SW explained that this commercial insurance underwriter could not provide pt with pain meds [...] Evans RN - 06/03/2017 3:41 PM CDT wash worker is talking with patient per patient [...] pain in her sternum.She was seen at [facility] and evaluated for neck pain but left [...] and that she is seeing doctors at [facility] for evaluation. She reports that most of [...] 6 months ago when she ran into [employer]. She states that she called her pain management center, [facility], and that they referred [...] a history of chronic pain who sees [facility] for her prescription for [...] son tells me that they went to [facility] and they told the nurse that they went to [facility] emergency room as well in the past few days but nobody did anything or me. Here, the patient notes that hardware in her C-spine has loosened and she is scheduled to see [facility] physician to possibly look [...] patient and her son that per our [facility] pain policy she could have a dose of pain medication here orally but we were not doing IM or IV and she would not get a prescription to go home with. During the work-up, I was unaware that the patient requested to see social work and social work came down to see them and came to talk to me. The outreach and education social worker states that the patient wanted to complain about our care to her but she had no complaints of social issues at home. wash worker referred her back to me. I [...] I did also speak to a P.A. operations chief for [facility], [place], who agreed with the plan with this negative workup toneileen give her further narcotics here or send [...] observations and the provider's statements to me. [facility] EMERGENCY DEPARTMENT Zoey López PA-C 06/03/17 1738 documented in this encounter Plan of Treatment Not on filedocumented as of this encounter Procedures Procedure Name Priority Date/Time Associated Diagnosis Comme nts XR CHEST 2 VIEWS STAT 06/03/2017 3:19 PM Resul ts for this CDT procedure are [...] Region Laterality Modality Spine, SUBRAD CT MSK, [facility] CT SPINE Compu mary Tomography [...] mg (COMPLETED) 1433 (Given - Provider: Kristie Rojas, RADHA) 1,000 mg, Oral, ONCE, Tue06/03/17 at 1406, [...] dose documented in this encounter Care Teams Crisis Intervention Specialist Relationship Specialty Start Date End Date [facility] PCP - General 06/03/171999 [place] [address] documented as of this encounter
--- OUTSIDE RECORDS SUMMARY | 2022-08-01 06:35 | XMS_ITS | Encounter Summary ---
:1965 Author Organization [place] Address [address] [place] [address] Care Team Providers Name Role Phone Unavailable Primary Care Provider Unavailable Encounter Details Date Type Department Care Team Description 04/15/2009 Results Only [facility] Evelio Munoz MD Hospital Results [address] [place] [id number] (Wo rk) Social History Tobacco Use Types [...] MD SPECIAL IMAGING STUDIES Performing Organization Address City/[facility] Code Phon e Number RADIOLOGY RESULTS CT [...] MD SPECIAL IMAGING STUDIES Performing Organization Address [facility] Code Phon e Number RADIOLOGY RESULTS documented in this encounter Visit Diagnoses Not on filedocumented in this encounter
--- OUTSIDE RECORDS SUMMARY | 2022-08-01 06:35 | XMS_ITS | Encounter Summary ---
:1965 Author Organization [facility] Address [address] [address] Care Team Providers Name Role Phone Jose Holden MD Primary Care Provider [phone] Encounter Details Date Type Department Care Team Description 11/10/2018 Orders Only External to Pete Tamayo MD [address] [place], [place] [phone] (Wo rk) Social History Tobacco Use Types [...] 11/10/2018 12:00 AM R esults for this ASSISTANT EDITOR procedure are i n the results section. documented in this encounter Results CT SCAN SPINE--SCAN (11/10/2018 12:00 AM ASSISTANT EDITOR) Anatomical Region Laterality Modality Other Specimen (Source) Anatomical Location Collection Method / Collectio n Time Received Time / Laterality Volume 11/10/2018 Narrative This result has an attachment that is no t available. Pete Gonzalez MD DUMMY/OTHER/AR documented in this encounter Visit Diagnoses Not on filedocumented in this encounter Care Teams Plate Grinder Relationship Specialty Start Date End Date Jose Holden MD PCP - General Otolaryngology 12/14/17 [address] [place] [address] documented as of this encounter
--- OUTSIDE RECORDS SUMMARY | 2022-08-01 06:35 | XMS_ITS | Encounter Summary ---
:1965 Author Organization [place] Address [address] [place] [address] Care Team Providers Name Role Phone Amna Fletcher Primary Care Provider Reason for Visit Reason Comments Chest Wall Pain Encounter Details Date Type Department Care Team Description [facility]2016 [facility], [facility] Emergency [facility] phuong Ross MD Closed fracture of rib of right side, in itial encounter [address] [facility] EMERGENCY [place]YS[place] [address] [address] [facility] [address] [place] [address] (Wo rk) Social History Tobacco Use Types [...] your healthcare provider ?? Congested cough ?? [phone] [employer]. [address] [place] [address]. All rights reserved. This information is not intended as a substitute for professional medical care. Always follow your healthcare professional's instructions. AttachmentsThe following attachments cannot be sent through Care Everywhere.BONE BRUISE (BONE CONTUSION), UNDERSTANDING (KAZAKH)documented in this encounter Medications at Time of [...] surgery Bilateral knee arthroplasty Gastric bypass Cholecystectomy House Wrecker surgery Family History: History reviewed. No pertinent [...] Department Course ECG (01:17:19): Rate 69 bpm. NE interval 176. QRS duration 94. QT/QTc 408/437. [...] hours for 10 days Adrian Vera 07/18/2016 [facility] EMERGENCY DEPARTMENT IAdrian am serving as a scribe at 1:03 AM on 07/18/2016 to document services personally performed by Radha Espana MD based on my observations and the provider's statements to me. Radha Espana MD 07/18/16 [address], RADHA - 07/18/2016 12:48 AM CDT Pt fell against a counter 2 days ago Has been having Chest pain And unable to sleep Rates pain at this time 09/06 Here for eval documented in this encounter Plan of Treatment Not on filedocumented as of this encounter Procedures Procedure Name Priority Date/Time Associated Diagnosis Comme nts XR CHEST 2 VIEWS STAT 07/18/2016 1:36 AM Resul ts for this CDT procedure [...] EKG 12 lead (07/18/2016 1:17 AM CDT) [facility] gist Method Time Signature Interpretation ECG Click [...] dose documented in this encounter Care Teams Nurse Transitional Relationship Specialty Start Date End Date Amna Fletcher PCP - General 07/18/16 05/16/17 [facility] [address] [place] [address] documented as of this encounter
--- OUTSIDE RECORDS SUMMARY | 2022-08-01 06:35 | XMS_ITS | Encounter Summary ---
:1965 Author Organization [facility] Address [address], [place] [address] Care Team Providers Name Role Phone Jose Holden MD Primary Care Provider [phone] Reason for Visit Reason Comments APPOINTMENT REQUEST Encounter Details Date Type Department Care Team Description 11/13/2018 Telephone [facility] Pete Gonzalez MD APPOINTMENT REQUEST [facility] [address] [place], [place] [address]E Neurosurgery/[place]th[place], [place] [address] [place] [address] [place] [address] [phone] Social History Tobacco Use Types Packs/Day Years [...] Jana Marcos - 11/16/2018 3:46 PM CST Case Management Director spoke to the pt and helped schedule an appt with Dr. Gonzalez on 12/26/17 at 1:40PM. Pt was in agreement of date, time and location. Jana Marcos 11/16/2018, 3:46 PM ISION OPTICAL GOODS WORKER Chava Simon RN - 11/16/2018 1:15 PM CST Per Sirisha Rolandson Gunnar, DEHYDRATING PRESS OPERATOR: patient can follow up with Dr. Gonzalez with repeat upright cervical XRs. Rachid: please call patient and assist in scheduling her for an appointment with Dr. Gonzalez at next available with XR Chava Simon RN 11/16/2018, 1:20 PM ISION OPTICAL GOODS WORKER Chava Simon RN - 11/16/2018 11:15 AM [...] Walker RN - 11/15/2018 11:21 AM CST [facility]- still have not received CD from [place]. If patient calls back, please let her [...] plan? Chava Simon RN 11/13/2018, 9:12 AM ISION OPTICAL GOODS WORKER Michael Cruz - 11/13/2018 8:23 AM CST Patient called in requesting for an appointment with Dr. Gonzalez himself only and not APPs. She states she fell on ice last week 11/09/18 and went to [facility] to be evaluated. She reports the left [...] Gonzalez to ensure everything is well as [facility] [place] is not theones who did surgery on her and cannot compare this to before and after surgery. Case Management Director called [facility] and spoke with Mandy in the film room. They are not able to push imaging but they can send a CD. Address was provided for her of mail stop [id number] [facility] Attn: Dr. Gonzalez. She states the report will also be included in the CD. She then transferred me to Medical Records. Case Management Director spoke with Shauna who states patient will need to sign an CODI to obtain ED note from 11/09/18 to be sent to us as they are not affiliated with [employer] system. Case Management Director reached patient and relayed she would need [...] being sent. Michael Cruz 11/13/2018, 8:43 AM ISION OPTICAL GOODS WORKER documented in this encounter Plan of Treatment Not on filedocumented as of this encounter Visit Diagnoses Diagnosis S/P cervical spinal fusion - Primary Arthrodesis status documented in this encounter Care Teams Wood Block Artist Relationship Specialty Start Date End Date Jose Holden MD PCP - General Otolaryngology 12/14/17 [place] [address] documented as of this encounter
--- OUTSIDE RECORDS SUMMARY | 2022-08-01 06:35 | XMS_ITS | Encounter Summary ---
:1965 Author Organization [facility] Address [address], [place] [address] Care Team Providers Name Role Phone Jose Holden MD Primary Care Provider [phone] Reason for Referral Procedure/Equipment (Routine) - Closed Specialty Diagnoses / Procedures Referred By Contact Refer red To Contact Diagnoses Intractable acute post-traumatic headache Blanka Mead APRN, CN P [address] [place] [address] Referral ID Status Reason Start Date Expiration Date Visits Requ ested Visits Authorized [id number] Closed 02/16/2019 05/17/2020 1 1 Scheduling Instructions . herapies (Routine) - Closed Specialty Diagnoses / Procedures Referred By Contact Refer red To Contact Diagnoses Impairment of balance Dizziness Blanka Mead APRN, CN P [address] [place] [address] Referral ID Status Reason Start Date Expiration Date Visits Requ ested Visits Authorized [id number] Closed 02/16/2019 04/17/2019 1 1 Scheduling Instructions Your provider has recommended an appoint ment with a [facility] Physical Therapist. Please stop at the clinic check out desk for assistance with scheduling or if you prefer to call for your appointment you may call [facility] Outpatient Rehabilitation at [phone]. We suggest you call your [facility] insurance company about your coverage and benefits for this appointment. Reason for Visit Reason Comments Consult, New Patient Consult/Transfer Care (Routine) - Closed Specialty Diagnoses / Procedures Referred By Contact Refer red To Contact Diagnoses Traumatic brain injury, without loss of consciousness, initial encounter (HRC) Tony Pittman MD [address] [place] [address] Referral ID Status Reason Start Date Expiration Date Visits Requ ested Visits Authorized [id number] Closed 12/26/2018 03/26/2020 1 1 Encounter Details Date Type Department Care Team Description 02/16/2019 Office Visit [facility], Impairment of balance (Primary Dx); Neuroscience Center Blanka Coulter s; Physical Medicine NIKKY Chavez, Intractable acute post-traum atic headache [address] [facility] [place] [address] [address] [facility] [phone] [place] [address] Social History Tobacco Use Types [...] Body Mass Index 33.01 12/26/2018 1:48 PM PARLIAMENTARY LIBRARIAN documented in this encounter Patient Instructions Patient [...] If you need to reschedule, please call [phone] as soon as you know you will not be able to make the appointment. If you have any questions or concerns, please call the clinic at [phone]. ?? If tests are needed, you will [...] treatment plan is please contact us at [phone] or send us a secure message via [employer]. If you need follow-up in the future, please call [phone] for an appointment. If you cannot get a time that satisfies you, please let us know what times work for you and we will do our best to accommodate you. Thank you for choosing Blanka Mead APRN, CNP and [facility] Physical Medicine and Rehabilitation. documented in this [...] ER right away. She was seen at [facility]. According to the note from [facility]: the patient fell approximately 20 hours before being seenon 11/10/2018 with a presentation of headache neck pain left shoulder pain left knee pain left hip pain out of proportion to the mechanism of injury. The patient's a 53-year-old female well-known to [facility] with multiple comorbid medical and psychosocial issues, [...] She sees Dr. Bullard with neurosurgery at [facility]. She has a past medical history [...] and rods C2-T3 N/A 02/20/2018 Dr. Pete Gonzalze ??? h/o anterior cervical fusion 2016 Dr. Ihsan Brooke, [facility] Family History: Family History Problem Relation [...] ??? medical cannabis patient certified Take 1 [place] by mouth . ??? naloxone (NARCAN) 4 [...] [facility] DATE/TIME: 12/26/2018 1:44 PM ?? INDICATION: Follow-up [...] able to review her head CT from [facility] as well as her cervical spine CT. Findings obtained by [facility] on 11/10/2018 showed CSF spaces within normal [...] headache documented in this encounter Care Teams Parliamentary Counsel Relationship Specialty Start Date End Date Jose Holden MD PCP - General Otolaryngology 12/14/17 [facility] [place] [address] documented as of this encounter
--- OUTSIDE RECORDS SUMMARY | 2022-08-01 06:35 | XMS_ITS | Encounter Summary ---
:1965 Author Organization [facility] Address [address] [place] [address] Care Team Providers Name Role Phone Jose Holden MD Primary Care Provider [phone] Encounter Details Date Type Department Care Team Description 04/09/2019 Notes/Orders [facility] Neuroscience Jose Carias, Center Truck Driver Helper apy PT [address] [place] [address] [place] [address] [phone] (Wo rk) Social History Tobacco Use Types [...] CDT PHYSICAL THERAPY DISCHARGE NOTE Angie Mosquera [id number] Payor: MEDICARE / Plan: MEDICARE / Product [...] on filedocumented in this encounter Care Teams Facs Teacher Relationship Specialty Start Date End Date Jose Holden MD PCP - General Otolaryngology 12/14/17 [place] [address] documented as of this encounter
--- OUTSIDE RECORDS SUMMARY | 2022-08-01 06:35 | XMS_ITS | Encounter Summary ---
:1965 Author Organization [facility] Address [address] [facility] [place] [address] Care Team Providers Name Role Phone Unavailable Primary Care Provider Unavailable Encounter Details Date Type Department Care Team Description 04/15/2009 Emergency room [facility] Evelio Lamar MD Hospital Results [address] [place] [phone] (Wo rk) Social History Tobacco Use Types [...] She states that her pain clinic in [place] gave her new prescriptions to be filled [...] pain. SOCIAL HISTORY: The patient lives in [place]. Her primary care physician is Dr. Holley De La Rosa in [place], [place]. Her chronic pain doctor is Dr. Garcia at [facility] in [place]. Thepatient has had previous cervical and lumbar [...] I did speak with Dr. Torres the [facility] who review her records with [...] Compazine. I gave her referral information for [facility] if she has further problems while she was in [place]. She plans to be here another 1-2 weeks. DISCHARGE DIAGNOSES: 1. Acute exacerbation of chronic back pains. 2. Nausea. Electronically signed on 05/01/2009 06:49 by EVELIO LAMAR MD MT: [id number] Name: KAYLIN MOSQUERA MRN: [id number] Account: [id number] : 1965 Visit Date: 04/15/2009 Document: [id number] cc: Oc De La Rosa MD documented in this encounter Plan of Treatment Not on filedocumented as of this encounter Visit Diagnoses Not on filedocumented in this encounter
--- OUTSIDE RECORDS SUMMARY | 2022-08-01 06:35 | XMS_ITS | Encounter Summary ---
:1965 Author Organization [facility] Address [facility] [place] [address] Care Team Providers Name Role Phone Unavailable Primary Care Provider Unavailable Encounter Details Date Type Department Care Team Description 04/15/2009 Historic Results INTERFACED REPORT Kai Munoz MD [address] [place] [place] [address] [facility] [address] [place] [address] (Wo rk) Social History Tobacco [...]
--- OUTSIDE RECORDS SUMMARY | 2022-08-01 06:35 | XMS_ITS | Encounter Summary ---
:1965 [facility] Address [address] [place] [address] Care Team Providers Name Role Phone Jose Holden MD Primary Care Provider [phone] Encounter Details Date Type Department Care [...] HEAD 11/10/2018 12:00 AM Results for this PROPERTY SUPERVISOR procedure are i n the results section . documented in this encounter Results CT HEAD (11/10/2018 12:00 AM PROPERTY SUPERVISOR) Anatomical Region Laterality Modality Other Specimen (Source) Anatomical Location Collection Method / Collectio n Time Received Time / Laterality Volume 11/10/2018 Narrative This result has an attachment that is no t available. Phy No Primary/Referring DUMMY/OTHER/AR documented in this encounter Visit Diagnoses Not on filedocumented in this encounter Care Teams Social Welfare Clerk Relationship Specialty Start Date End Date Jose Holden MD PCP - General Otolaryngology 12/14/17 [place] [address] documented as of this encounter
--- OUTSIDE RECORDS SUMMARY | 2022-08-01 06:36 | XMS_ITS | Encounter Summary ---
:1965 Author Organization [facility] Address [address], [place] [address] Care Team Providers Name Role Phone Jose Holden MD Primary Care Provider [phone] Reason for Visit Reason Comments Revisit Encounter Details Date Type Department Care Team Description 08/14/2018 Office Visit [facility] Pete Gonzalez, Neck pain (Primary Neuroscience Center MD Dx) Neurosurgery/Ortho [address] [facility] Spine [address] [facility]. [place], [place] [address] [address] [phone] Social History Tobacco Use Types Packs/Day Years [...] Surgery center (4th floor [address], [place]).prior to your next appointment. Follow up: with [...] your understanding. Please call the Neurosurgery Center [phone] with any further questions or concerns or [...] Cervicalgia documented in this encounter Care Teams Help Aid Relationship Specialty Start Date End Date Jose Holden MD PCP - General Otolaryngology 12/14/17 [facility] [place] [address] documented as of this encounter
--- OUTSIDE RECORDS SUMMARY | 2022-08-01 06:36 | XMS_ITS | Encounter Summary ---
:1965 [facility] Address [address] [place] [address] Care Team Providers Name Role Phone Jose Holden MD Primary Care Provider [phone] Reason for Referral Therapies (Routine) - Closed Specialty Diagnoses / Procedures Referred By Contact Refer red To Contact Diagnoses S/P cervical spinal fusion Pete Gonzalez MD [address] [place] [address] Referral ID Status Reason Start Date Expiration Date Visits Requ ested Visits Authorized [id number] Closed 06/26/2018 08/25/2018 1 1 Scheduling Instructions Your provider has recommended an appoint ment with a [facility] Physical Therapist. Please stop at the clinic check out desk for assistance with scheduling or if you prefer to call for your appointment you may call [facility] Out[facility] Rehabilitation [place] at [phone]. We suggest yo u call your health insurance company about your coverage and benefits for this appo intment. Reason for Visit Reason Comments RESULTS, TEST Orders Needed Encounter Details Date Type Department Care Team Description 06/22/2018 Telephone [facility] Pete Gonzalez MD RESULTS, TEST; Orders Neuroscience Center [address] [facility] eded Neurosurgery/Ortho S [address] [place] [address] [phone] (Wo rk) Social History Tobacco Use Types [...] getting a stimulator or morphine pump through [facility] pain clinic. She is wondering if she should wait and discuss possible surgical options with Dr. Gonzalez or just get the stimulator or morphine pump? Please advise. Chava Simon RN 06/28/2018, 8:45 AM Michael Cruz - 06/28/2018 8:25 AM CDT Patient calling in regards to her imaging results. Decal Transferrer relayed message from Lois Pham PA-C. Patient states that she would like a return call. Patient states she doesn't understand why there are no acute concerns? She will be seeing [facility] pain clinic to discuss getting a stimulator or morphine pump. Patient would like to know if she should move forward with this from Neurosurgery standpoint. Please call patient to further discuss and advise. Michael Cruz 06/28/2018, 8:27 AM Chava Simon RN - 06/28/2018 8:24 AM CDT [facility] Chava Simon RN 06/28/2018, 8:26 AM Lois [...] Michael Cruz - 06/26/2018 11:18 AM CDT Decal Transferrer reached patient and relayed message below to her. Patient expressed her appreciation. Per herrequest order has been sent to [facility] outpatient rehabilitation services at [phone] with a note to have them call patient to schedule. Patient aware they will reach out to schedule her for PT. She also states she picked up a copy of her imaging and they relayed that they had alreadysent one. Decal Transferrer called their radiology department and spoke to Selena who states a CD was not mailed out and she is not sure why. She took down clinic address of [address] [address] and stated she would send one out [...] sure she has had this sent from [facility] for team to review. Chava Simon RN 06/26/2018, 8:58 AM Lois Pham PA-C - 06/26/2018 6:50 AM CDT OK to order PT with massage. We do not have results of imaging that I am aware of. Lois Pham PA-C Jennifre Kidd - 06/23/2018 3:49 PM CDT Pt calling back as she has not heard back from nurse yet. Also anxious to know results of CT and MRIthat were done at [facility] on 06/20. Informed pt that [...] status documented in this encounter Care Teams Maintenance Leader Relationship Specialty Start Date End Date Jose Holden MD PCP - General Otolaryngology 12/14/17 [facility] [place] [address] documented as of this encounter
--- OUTSIDE RECORDS SUMMARY | 2022-08-01 06:36 | XMS_ITS | Encounter Summary ---
:1965 [facility] Address [address] [place] [address] Care Team Providers Name Role Phone Jose Holden MD Primary Care Provider [phone] Reason for Visit Procedure/Equipment (Routine) - Incomplete Specialty Diagnoses / Procedures Referred By Contact Refer red To Contact Diagnoses S/P cervical spinal fusion Sirisha Rankin, Procedures XR Cervical Spine AP/Lat Upright CASE REVIEWER, WASHING MACHINE ASSEMBLER [address] [place] [address] Referral ID Status Reason Start Date Expiration Date Visits V isits Requested Authorized [id number] Incomplete 04/05/2018 07/05/2019 1 1 Encounter Details Date Type Department Care Team Description 06/14/2018 Imaging [facility] Sneha Maher, S/P cervi [facility] spinal Neuroscience Center Sirisha Celaya, APR N, WASHING MACHINE ASSEMBLER fusion Radiology [address] [place] [address] [place] [address] [phone] Social History Tobacco Use Types Packs/Day Years [...] PM CDT Narrative 06/14/2018 5:54 PM CDT [facility] XR CERVICAL SPINE AP/LAT UPRIGHT [...] note might be different from the original. [facility] XR CERVICAL SPINE AP/LAT UPRIGHT [...] soft tissue swelling. Remainder unchanged. Sirisha Maher CASE REVIEWER, WASHING MACHINE ASSEMBLER RAD GD documented in this encounter Visit Diagnoses Diagnosis S/P cervical spinal fusion Arthrodesis status documented in this encounter Care Teams Stone Sandblaster Relationship Specialty Start Date End Date Jose Holden MD PCP - General Otolaryngology 12/14/17 [place] [address] documented as of this encounter
--- OUTSIDE RECORDS SUMMARY | 2022-08-01 06:36 | XMS_ITS | Encounter Summary ---
:1965 Author Organization [facility] Address [address], [place] [address] Care Team Providers Name Role Phone Jose Holden MD Primary Care Provider [phone] Reason for Visit Reason Comments Revisit occipital nerve block Encounter Details Date Type Department Care Team Description 07/10/2018 Office Visit [facility] occipital neuralgia (Primary Dx); Neuroscience Center Pain RMD Myalgia; Management [address] H/O cervical spinal arthrodesis [address] [place] [address] [phone] Social History Tobacco Use Types Packs/Day Years [...] treatment plan is, please contact me via [employer] online messaging or call the office at and ask to speak to a nurse. Tony Pittman MD Pain Medicine documented in this encounter Progress Notes Tony Pittman MD - 07/10/2018 3:45 PM CDT [facility] Follow-up Visit 07/10/2018 Interim history: [...] Oxycodone 5 mg Q6H - Prescribes by [facility], has been taking [...] at a pain clinic in the past. [facility] physical therapy: Past [...] anterior cervical fusion 2017 Dr. Ihsan Brooke, [facility] past surgical history reviewed with patient. [...] ??? medical cannabis patient certified Take 1 [place] by mouth . ??? naloxone (NARCAN) 4 [...] 0 No facility-administered medications prior to visit. MA and MD Prescription Monitoring Program reviewed Allergies: [...] in her mother. Social history:she lives in [place], [place].she is not currently working. Smokin/2 ppd. 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 Patient education: I [...] MD Pain Medicine Physical Medicine and Rehabilitation [facility] Pain Management This document serves as a record of services personally performed by Tony Pittman MD. It was created on his behalf by Gillian Harding, a trained medical transcriber. The creation of this record is based [...] status documented in this encounter Care Teams Reservoir Engineering Consultant Relationship Specialty Start Date End Date Jose Holden MD PCP - General Otolaryngology 12/14/[address] [place], [place] [address] [address] documented as of this encounter
--- OUTSIDE RECORDS SUMMARY | 2022-08-01 06:36 | XMS_ITS | Encounter Summary ---
:[address] [facility] Address [address] [address] Care Team Providers Name Role Phone Jose Holden MD Primary Care Provider [phone] Reason for Visit Procedure/Equipment (Routine) - Incomplete Specialty Diagnoses / Procedures Referred By Contact Refer red To Contact Diagnoses Cervical spondylosis with radiculopathy (HRC) Sneha Maher, Sirisha Celaya, Procedures XR Cervical Spine AP/Lat Upright VOLUNTEER SERVICES SPECIALIST, SUB ACUTE CARE NURSE [address] [place] [address] Referral ID Status Reason Start Date Expiration Date Visits V isits Requested Authorized [id number] Incomplete 02/21/2018 05/23/2019 1 1 Encounter Details Date Type Department Care Team Description 04/05/2018 Imaging [facility] Sneha Maher, Cervical spondylosis Neuroscience Center Sirisha Celaya, APR N, SUB ACUTE CARE NURSE with radiculopathy Radiology [address] [place] [address] [phone] (Wo rk) Social History Tobacco Use Types [...] Anatomic alignment. Shoulder prosthesis. Sirisha Yomi Maher VOLUNTEER SERVICES SPECIALIST, SUB ACUTE CARE NURSE RAD GD documented in this encounter Visit Diagnoses Diagnosis Cervical spondylosis with radiculopathy (HRC) Cervical spondylosis with myelopathy documented in this encounter Care Teams Iuss Analyst Relationship Specialty Start Date End Date Jose Holden MD PCP - General Otolaryngology 12/14/[address] [place], [place] [address] [address] documented as of this encounter
--- OUTSIDE RECORDS SUMMARY | 2022-08-01 06:36 | XMS_ITS | Encounter Summary ---
:1965 Author Organization [facility] Address [address] [place] [address] Care Team Providers Name Role Phone Jose Holden MD Primary Care Provider [phone] Encounter Details Date Type Department Care Team Description 06/20/2018 Consent for [facility] E[facility] Procedure/Treat Neuroscience Center Tony Alvarado MD FOR TX/PROCEDURE ent Pain Management [address] [place] [phone] Social History Tobacco Use Types Packs/Day Years [...] on filedocumented in this encounter Care Teams Clip Loading Machine Adjuster Relationship Specialty Start Date End Date Jose Holden MD PCP - General Otolaryngology 12/14/[address] [place], [place] [address] documented as of this encounter
--- OUTSIDE RECORDS SUMMARY | 2022-08-01 06:36 | XMS_ITS | Encounter Summary ---
:1965 [facility] Address [address], [place] [address] Care Team Providers Name Role Phone Jose Holden MD Primary Care Provider [phone] Reason for Visit Reason Comments Injection Encounter Details Date Type Department Care Team Description 09/04/2018 Telephone [facility] Neuroscience Pete Gonzalez MD Injection Center Neurosurgery/Ortho [address] [facility] Spine [place], [place] [address] [address] [place] [address] [phone] Social History Tobacco Use Types Packs/Day Years [...] 09/05/2018 10:13 AM CDT Per Sirisha Maher, AMBULATORY SERVICE REPRESENTATIVE: cannot write letter. Okay for repeat [...] Cervicalgia documented in this encounter Care Teams Resident Assistant Cna Relationship Specialty Start Date End Date Jose Holden MD PCP - General Otolaryngology 12/14/17 [place] [id number] documented as of this encounter
--- OUTSIDE RECORDS SUMMARY | 2022-08-01 06:36 | XMS_ITS | Encounter Summary ---
:1965 Author Organization [facility] Address [address], [place] [address] Care Team Providers Name Role Phone Jose Holden MD Primary Care Provider [phone] Reason for Visit Reason Comments POST-OP,EXAM Encounter Details Date Type Department Care Team Description 03/07/2018 Office Visit [facility] Denis P ostop check (Primary Center Neurosurgery/Ortho Dx ) Spine [address] [place], [place] [phone] Social History Tobacco Use Types Packs/Day Years [...] understanding. Please call the Neurosurgery/Spine Clinic at [phone] with any further questions or concerns. documented [...] surgery documented in this encounter Care Teams Box Worker Relationship Specialty Start Date End Date Jose Holden MD PCP - General Otolaryngology 12/14/17 [facility] [place] [address] documented as of this encounter
--- OUTSIDE RECORDS SUMMARY | 2022-08-01 06:36 | XMS_ITS | Encounter Summary ---
:1965 Author Organization [facility] Address [address], [place] [address] Care Team Providers Name Role Phone Jose Holden MD Primary Care Provider [phone] Reason for Visit Reason Comments QUESTIONS, GENERAL Encounter Details Date Type Department Care Team Description 02/24/2018 Telephone [facility] Pete Gonzalez MD QUESTIONS, GENERAL Neuroscience Center [address] [facility] Neurosurgery/Ortho S [place], [place] [address] [address] [place] [address] [phone] Social History Tobacco Use Types Packs/Day Years [...] currently doing PT which was ordered through [facility] for her shoulder. She is worried [...] on filedocumented in this encounter Care Teams Auto Refinisher Relationship Specialty Start Date End Date Jose Holden MD PCP - General Otolaryngology 12/14/17 [facility] [place] [address] documented as of this encounter
--- OUTSIDE RECORDS SUMMARY | 2022-08-01 06:36 | XMS_ITS | Encounter Summary ---
:1965 Author Organization [facility] Address [address] [place] [address] Care Team Providers Name Role Phone Jose Holden MD Primary Care Provider [phone] Encounter Details Date Type Department Care Team [...] on filedocumented in this encounter Care Teams List Of First Job Ideas Relationship Specialty Start Date End Date Jose Holden MD PCP - General Otolaryngology 12/14/17 [place] [address] documented as of this encounter
--- OUTSIDE RECORDS SUMMARY | 2022-08-01 06:36 | XMS_ITS | Encounter Summary ---
:1965 Author Organization [facility] Address [address], [place] [address] Care Team Providers Name Role Phone Jose Holden MD Primary Care Provider [phone] Reason for Visit Reason Comments Forms Encounter Details Date Type Department Care Team Description 07/11/2018 Telephone [facility] Pete Gonzalez MD Forms Center Neurosurgery[facility]Or[facility] [address] [facility] [place], [place] [address] [address] [place] [address] [phone] Social History Tobacco Use Types Packs/Day Years [...] on filedocumented in this encounter Care Teams Automatic Gluing Machine Operator Relationship Specialty Start Date End Date Jose Holden MD PCP - General Otolaryngology 12/14/17 [place] [address] documented as of this encounter
--- OUTSIDE RECORDS SUMMARY | 2022-08-01 06:36 | XMS_ITS | Encounter Summary ---
:1965 [facility] Address [address], [place] [address] Care Team Providers Name Role Phone Jose Holden MD Primary Care Provider Reason for Referral Procedure/Equipment (Routine) - Incomplete Specialty Diagnoses / Procedures Referred By Contact Refer red To Contact Diagnoses Cervical spondylosis with radiculopathy (HRC) Sirisha Rankin, Procedures XR Cervical Spine AP/Lat Upright KALPANA SHER [address] [place] [address] Referral ID Status Reason Start Date Expiration Date Visits V isits Requested Authorized [id number] Incomplete 02/21/2018 05/23/2019 1 1 (Routine) Specialty Diagnoses / Procedures Referred By Contact Refer red To Contact Sirisha Rankin APRN, CNP [address] [place] [address] Referral ID Status Reason Start Date Expiration Date Visits Requ ested Visits Authorized (Routine) - Incomplete Specialty Diagnoses / Procedures Referred By Contact Refer red To Contact Procedures Marky Gonzalez MD XR C-Arm 0-30 Minutes [address] [place] [address] Referral ID Status Reason Start Date Expiration Date Visits V isits Requested Authorized [id number] Incomplete 02/20/2018 05/22/2019 1 1 Procedure/Equipment (Routine) - Incomplete Specialty Diagnoses / Procedures Referred By Contact Refer red To Contact Procedures Lois Pham, STEPHANIE XR Cervical Spine AP/Lat [address] [place], [place] [address] Referral ID Status Reason Start Date Expiration Date Visits V isits Requested Authorized [id number] Incomplete 02/20/2018 05/22/2019 1 1 (Routine) - Incomplete Specialty Diagnoses / Procedures Referred By Contact Refer red To Contact Procedures Marky Gonzalez MD XR C-Arm 30-[address] [place] [address] XR C-Arm 0-30 Minutes [place], [place] [address] Referral ID Status Reason Start Date Expiration Date Visits V isits Requested Authorized [id number] Incomplete 02/20/2018 05/22/2019 1 1 (Routine) - Incomplete Specialty Diagnoses / Procedures Referred By Contact Refer red To Contact Procedures Marky Gonzalez MD XR C-Arm 2.5-[address] [place] [address] Referral ID Status Reason Start Date Expiration Date Visits V isits Requested Authorized [id number] Incomplete 02/20/2018 05/22/2019 1 1 Reason for [...] Expiration Date Visits Requ ested Visits Authorized [id number] 1 1 Encounter Details Date Type Department Care Team Description 02/20/2018 - Hospital [facility] Marky Gonzalez, Cervical spondylosis with ra diculopathy (Primary Dx); 02/23/2018 Encounter [address] Ervin MD Cervical vertebral fusion; [place], [place] [id number] [place] 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, Screening procedure; [place] [address] Pseudarthrosis after fusion or arthrodes is; [phone] Bipolar II diso rder ([facility]); (Work) Moderate persistent asthma without statu s [...] in this encounter Discharge Summaries Sirisha Rankin, WALL MAN, COMMERCIAL LITIGATION [place] - 02/23/2018 9:09 AM CDT Neurosurgery Discharge [...] Hospital Course: Angie Bender was admitted to [facility] on 02/20/2018 following posterior C2-T3 with Dr. [...] 9.4 - 12.4 fl Narrative Performed at [facility], [address] [place] [address] Physical Exam: BP 124/78 Pulse 74 Temp [...] in strength to your extremeties. Neurosurgery clinic [phone]. If it is after hours, please call [...] RN on 03/07 at 11AM at [address] [facility], 2nd floor. 2. Follow up with Dr. Gonzalez/Lois Pham PA-C/Sirisha Maher NP on 04/05 at 1:00PM [facility] Patient also instructed to call clinic at [phone] or hospital for any questions or concerns. Patient verbalizes understanding and states no further questions at this time. 3. Follow up with PCP for any medical issues Total time spent at the time of discharge was 30 minutes Sirisha Maher APRN, CNP [facility]#[phone] documented in this encounter Discharge Instructions Discharge InstructionsDonna Ellis RN - 02/23/2018 10:42 AM CDT Hospital Contact Information [address] [address] General Information Discharging physician: Dr. Gonzalez [facility] Resources Emergency & Urgently Needed Care: For emergencies call 911 and/or get medical help right away. If you are a [facility] member and have medical needs after clinic hours you may [facility] [phone] or . Fall Prevention Recommendations ??? Follow [...] Ellis RN - 02/23/2018 11:50 AM CDT [facility] Discharge Note - Nursing Admission [...] of Report --- Sneha Maher, Sirisha Celaya, WALL MAN, COMMERCIAL LITIGATION [place]GAL - 02/23/2018 9:02 AM CDT Neurosurgery Progress [...] including C3- T1 posterior fusion (done in [place] approx 6 [...] Dc home today ?? Sirisha Maher, NIKKY, COMMERCIAL LITIGATION [place]GAL 02/23/2018, 9:02 AM Neurosurgery Pgr#[phone] Jolene Kaur PA-C - 02/22/2018 12:45 PM [...] including C3- T1 posterior fusion (done in [place] approx 6 [...] Lois Pham PA-C, 02/22/2018, 9:05 AM Neurosurgery [phone] He Reyes MD - 02/22/2018 8:29 AM [...] He Reyes M.D. [facility] [phone] INTERVAL HISTORY: She started tizanidine last night [...] 02/22/18 0743 Current Outpatient Prescriptions Ordered in [facility] Medication Sig Dispense Refill ??? sennosides-docusate sodium [...] TIME SPENT: 35 minutes including 50% time dhdz-kb-cnel time counseling her about her diagnosis and treatment options, and coordinating care with the primary team. DECISION-MAKING: The level of decision-making in this case is high/complex due to the complexity of medical problems, acute/chronic pain, opioid analgesia issues, and behavioral factors. He Reyes M.D. Brooklyn Whittington - 02/21/2018 1:47 PM CDT [facility] Care Management Screening Admission Info: [...] She see Dr Dr Estephanie Franz at [facility]. No DC needs anticipated. I verified the demographics on the face sheet for the correct address, phone number, emergency contact and PCP information. Brooklyn Whittington RN CM [phone] Lois Pham PA-C - 02/21/2018 9:23 AM CDT Neurosurgery Progress Note Date of service: 02/21/2018 Subjective: Feels sore. Upset she did not have COW BUYER overnight. Wants to go smoke. Wants to [...] there were a couple of options including COW BUYER vs IV pain medications for post op pain control, and rationale for non COW BUYER at this time. Did discuss that would not recommend DC as drain still has high output. Upright xrays prior to DC Up with assistance Continue hemovac until <30/shift Soft collar when OOB, PRN in bed for comfort PT/OT Dispo: Anticipate home in next 1-2 days pending drain output Lois Pham PA-C, 02/21/2018, 9:23 AM Neurosurgery [phone] He Reyes MD - 02/20/2018 1:20 PM [address]T Note from Dr. Covarrubias on 02/13/18: ? 1. On the day of surgery please order an Inpatient pain consult 2. Ketamine 5mg/h during surgery ?? Recommendations for opioids: ?? If using a COW BUYER: No oral opioids Start a COW BUYER pump with Dilaudid continuous IV infusion at a basal rate of 0.1 mg/hr with COW BUYER boluses of 0.2-0.4 mg every 10 minutes. ?? If not using a COW BUYER: Start dilaudid 2-4mg q3h prn (alternatively can [...] Pham PA-C - 02/20/2018 3:24 PM CDT [facility] Brief Operative Progress Note Surgery Date: 02/20/2018 Surgeon(s) and Role: * Marky Gonzalez MD - Primary PHYSICIAN LAND LEASE INFORMATION CLERK-Meka Pham Pre-op Diagnosis: * Cervical spondylosis with [...] The procedure was medically necessary for an medical laboratory assistant because Dr. Gonzalez needed the operative [...] Lois Pham PA-C, 02/20/2018, 3:25 PM Neurosurgery [phone] Marky Gonzalez MD - 02/20/2018 12:00 AM CDT ANGIE BENDER CSN: [id number] OPERATIVE REPORT DATE OF SURGERY: 02/20/2018 : 1965 SURGEON: MARKY GONZALEZ MD LAND LEASE INFORMATION CLERK: Lois Pham PA-C. PREOPERATIVE DIAGNOSES: 1. Status [...] performing all critical portions. MD YOLANDE COLEMAN/ALESSANDRO /[id number] cc: MARKY GONZALEZ MD documented in this [...] risk. 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 She also [...] He Reyes M.D. [facility] [phone] HISTORY OF PRESENT ILLNESS: Per Chart Review: [...] headache Opioid prescriber: Rosetta Martin-LEDY Jerry MD-valium SCHOOL OPERATIONS MANAGER database review: Risk Factors: History of substance [...] Lois Pham PA-C ??? glucose-ascorbic acid (aka [id number]) chewable tablet 4 Tab 4 Tab Oral [...] TIME SPENT: 70 minutes including 50% time hxdv-rv-rzct time counseling her about her diagnosis and treatment options, and coordinating care with the primary team. DECISION-MAKING: The level of decision-making in this case is high/complex due to the complexity of medical problems, acute/chronic pain, opioid analgesia issues, and behavioral factors. documented in this encounter Miscellaneous Notes OR Nursing - Monica Pate RN - 02/20/2018 2:49 PM CDT [facility] Progress Note Patient Name: Angie Bender [...] failure. Anatomic alignment. Shoulder prosthesis. Sirisha Maher WALL MAN, COMMERCIAL LITIGATION [place]GAL RAD GD (ABNORMAL) Complete Blood Count-No Diff (02/22/2018 12:36 PM CDT) P athologist Signature WBC 10.2 4.0 - 11.0 [facility] k/ul HOSPITAL RBC 3.36 (L) 4.0 - 5.2 [facility] M/ul [facility] Hemoglobin 11.1 (L) 12.0 - 16.0 [facility] g/dl HOSPITAL HCT 33.2 (L) 36.0 - 46.0 [facility] MCV 98.8 80 - 100 fl [facility] MCH 33.0 26 - 34 pg [facility] MCHC 33.4 32 - 36 [facility] g/dl HOSPITAL RDW 14.4 11.5 - 14.5 [facility] Platelets 183 150 - 450 [facility] k/[facility] MPV 10.6 9.4 - 12.4 [facility] Specimen Anatomical Collection Method Collection Time Receive d Time (Source) Location / / Volume Laterality 02/22/2018 12:36 02/22/2018 PM CDT 12:37 PM CDT Narrative [facility] - 02/22/2018 12:46 PM C DT Performed at [facility] , [address] [place] [address] Lois Pham PA-C LAB_1 Performing Organization Address City/State/ZIP Code Phon e Number [id number] [place] [address] XR Cervical Spine AP/Lat Upright (02/21/2018 9:50 [...] complication. A surgical drain is present. Lois JSOEPH GD Glucose, Whole Blood POC (02/21/2018 7:41 AM CDT) athologist Signature Glucose, Whole 109 70 - 180 [facility] Blood mg/dl [facility]OSPITAL Comment: Point of Care Testing RN Notified Specimen Anatomical Collection Method Collection Time Receive d Time (Source) Location / / Volume Laterality 02/21/2018 7:41 AM 8 7:57 CDT AM CDT Marky Gonzalez MD LAB_1 Performing Organization Address City/State/ZIP Code Phon e Number [address] [address], [facility] [phone] (ABNORMAL) Basic Metabolic Panel (02/21/2018 7:12 AM CDT) athologist Signature Sodium 138 136 - 145 [facility] mmol/L [facility] Potassium 3.9 3.5 - 5.1 [facility] mmol/L [facility] Chloride 111 (H) 98 - 109 [facility] mmol/L [facility] CO2 20 20 - 29 [facility] mmol/L [facility] Anion Gap 7 7 - 16 [facility] (calc.) mmol/L [facility] Glucose 117 70 - 180 [facility] mg/dl [facility]OSPITAL Calcium 8.3 (L) 8.4 - 10.2 [facility] mg/dl [facility]OSPITAL BUN 14 7 - 26 [facility] mg/dl [facility] Creatinine 0.63 0.55 - [facility] 1.02 mg/dl HOSPITAL GFR, Estimated >60 >60 [facility] ml/min/1.7 [facility] 3m2 GFR, Est., If >60 >60 [facility] Black ml/min/1.7 [facility] 3m2 Specimen Anatomical Collection Method Collection Time Receive d Time (Source) Location / / Volume Laterality 02/21/2018 7:12 AM 8 7:13 CDT AM CDT Narrative [facility] - 02/21/2018 7:47 AM CD T Performed at [facility] , [address] [place] [address] Lois Pham PA-C LAB_1 Performing Organization Address City/State/[place]IP [place] [address] [address], [facility] (ABNORMAL) Hemogram with Plts (02/21/2018 7:12 AM CDT) athologist Signature WBC 10.0 4.0 - 11.0 [facility] RBC 3.29 (L) 4.0 - 5.2 [facility] Hemoglobin 10.7 (L) 12.0 - 16.0 [facility] g/dl [facility] HCT 32.2 (L) 36.0 - 46.0 [facility] MCV 97.9 80 - 100 [facility] MCH 32.5 26 - 34 pg [facility] MCHC 33.2 32 - 36 [facility] g/dl [facility] RDW 13.9 11.5 - 14.5 [facility] Platelets 186 150 - 450 [facility] MPV 10.3 9.4 - 12.4 [facility] Specimen Anatomical Collection Method Collection Time Receive d Time (Source) Location / / Volume Laterality 02/21/2018 7:12 AM 8 7:13 CDT AM CDT Narrative [facility] - 02/21/2018 7:26 AM CD T Performed at [facility] , [address] [place] [address] Lois Pham PA-C LAB_1 Performing Organization Address City/[facility]/ZIP Code Phon e Number [address] [address], [facility] Glucose, Whole Blood POC (02/20/2018 11:20 PM CDT) P athologist Signature Glucose, Whole 140 70 - 180 [facility] Blood mg/dl [facility] Comment: Point of Care Testing No Action Required Specimen Anatomical Collection Method Collection Time Receive d Time (Source) Location / / Volume Laterality 02/20/2018 11:20 02/20/2018 PM CDT 11:26 PM CDT Marky Gonzalez MD LAB_1 Performing Organization Address [facility] Phon e Number [address] [address], [place] [phone] Glucose, Whole Blood POC (02/20/2018 5:05 PM CDT) P athologist Signature Glucose, Whole 145 70 - 180 [facility] Blood mg/dl [facility]OSPITAL Comment: Point of Care Testing No Action Required Specimen Anatomical Collection Method Collection Time Receive d Time (Source) Location / / Volume Laterality 02/20/2018 5:05 PM 8 5:25 CDT PM CDT Marky Gonzalez MD LAB_1 Performing Organization Address City/[facility]/ZIP [facility] Phon e Number [address] [address], [place] Glucose, Whole Blood POC (02/20/2018 3:45 PM [...] Organization Address City/State/ZIP Code Phon e Number [address] [address], [place] XR C-Arm 0-30 Minutes (02/20/2018 2:05 PM CDT) Anatomical Region Laterality Modality Other Specimen (Source) Anatomical Location Collection Method / Collectio n Time Received Time / Laterality Volume Narrative 02/20/2018 2:06 PM CDT Fluoroscopy provided by a ultrasound technologist sonographer. Exact fluoroscopy time is documented in end of exam information in EPIC Marky Gonzalez MD RAD GD XR C-Arm 2.5-3 Hours (02/20/2018 12:45 PM CDT) Anatomical Region Laterality Modality Other Specimen (Source) Anatomical Location Collection Method / Collectio n Time Received Time / Laterality Volume Narrative 02/20/2018 12:45 PM CDT Fluoroscopy provided by a ultrasound technologist sonographer. Exact fluoroscopy time is documented in end of exam information in EPIC Marky Gonzalez MD RAD GD XR C-Arm 30-59 Minutes (02/20/2018 12:36 PM CDT) Anatomical Region Laterality Modality Other Specimen (Source) Anatomical Location Collection Method / Collectio n Time Received Time / Laterality Volume Narrative 02/20/2018 12:36 PM CDT Fluoroscopy provided by a ultrasound technologist sonographer. Exact fluoroscopy time is documented in end [...] Organization Address City/State/ZIP Code Phon e Number [address] [address], [place] [phone] Glucose, Whole Blood POC (02/20/2018 6:25 AM CDT) athologist Signature Glucose, Whole 90 70 - 180 [facility] Blood mg/dl [facility] Specimen Anatomical Collection Method Collection Time Receive d Time (Source) Location / / Volume Laterality 02/20/2018 6:25 AM 8 6:34 CDT AM CDT Marky Gonzalez MD LAB_1 Performing Organization Address City/[facility]/ZIP [facility] Phon e Number [address] [address], [facility] ABO/RH(D) Retype (02/20/2018 6:22 AM CDT) athologist Signature ABO/RH(D) A NEGATIVE [facility] Specimen Anatomical Collection Method Collection Time Receive d Time (Source) Location / / Volume Laterality 02/20/2018 6:22 AM 8 6:25 CDT AM CDT Narrative [facility] - 02/20/2018 7:06 AM CD T Performed at [facility] , [address] [place] [address] Marky Gonzalez MD LAB_1 Performing Organization Address [facility] Phon e Number [address] [address], [facility] [phone] INR/Protime (PT/INR) (02/20/2018 6:08 AM CDT) athologist Signature Protime 13.0 12.0 - 14.5 [facility] INR 1.0 0.9 - 1.1 [facility] Specimen Anatomical Collection Method Collection Time Receive d Time (Source) Location / / Volume Laterality 02/20/2018 6:08 AM 8 6:22 CDT AM CDT Narrative [facility] - 02/20/2018 6:40 AM CD T Performed at [facility] , [address] [place] [address] Sirisha Maher APRN, COMMERCIAL LITIGATION [employer]GAL LAB_1 Performing Organization Address [facility]/ZIP [facility] Phon e Number [address] [address], [facility] [phone] Hemogram with Platelets (02/20/2018 6:08 AM CDT) athologist Signature WBC 6.7 4.0 - 11.0 [facility] k/ul [facility] RBC 4.13 4.0 - 5.2 [facility] M/ul [facility] Hemoglobin 13.5 12.0 - 16.0 [facility] g/dl [facility] HCT 39.8 36.0 - 46.0 [facility] MCV 96.4 80 - 100 fl [facility] MCH 32.7 26 - 34 pg [facility] MCHC 33.9 32 - 36 [facility] g/dl HOSPITAL RDW 13.8 11.5 - 14.5 [facility] Platelets 245 150 - 450 [facility] k/[facility] MPV 10.6 9.4 - 12.4 [facility] Specimen Anatomical Collection Method Collection Time Receive d Time (Source) Location / / Volume Laterality 02/20/2018 6:08 AM 8 6:22 CDT AM CDT Narrative [facility] - 02/20/2018 6:32 AM CD T Performed at [facility] , [address] [place] [address] Sirisha Maher APRN, COMMERCIAL LITIGATION [employer]GAL LAB_1 Performing Organization Address [facility]/State/ZIP [place] [address] [phone] (ABNORMAL) Basic Metabolic Panel (02/20/2018 6:08 AM CDT) athologist Signature Sodium 139 136 - 145 [facility] mmol/L [facility] Potassium 4.4 3.5 - 5.1 [facility] mmol/L [facility] Comment: Specimen Slightly Hemolyzed Hemolysis May Affect Result Chloride 109 98 - 109 mmol/L [facility] AL CO2 18 (L) 20 - 29 mmol/L [facility] L Anion Gap (calc.) 12 7 - 16 mmol/L [facility] Glucose 96 70 - 180 mg/dl [facility] L Calcium 9.4 8.4 - 10.2 mg/dl [facility] BUN 14 7 - 26 mg/dl [facility] Creatinine 0.69 0.55 - 1.02 mg/dl [facility] HOS PITAL GFR, Estimated >60 >60 ml/min/1.73m2 [facility] GFR, Est., If Black >60 >60 ml/min/1.73m2 [facility] Specimen Anatomical Collection Method Collection Time Receive d Time (Source) Location / / Volume Laterality 02/20/2018 6:08 AM 8 6:22 CDT AM CDT Narrative [facility] - 02/20/2018 6:52 AM CD T Performed at [facility] , [address] [place] [address] Sirisha Maher APRN [employer]ER[employer] LITIGATION [employer]GAL LAB_1 Performing Organization Address City/[facility] Phon e Number [address] [address], [facility] [phone] aPTT (Activated Partial Thromboplastin Time) (02/20/2018 6:08 AM CDT) P athologist Signature PTT 26.8 24.0 - 37.0 [facility] Specimen Anatomical Collection Method Collection Time Receive d Time (Source) Location / / Volume Laterality 02/20/2018 6:08 AM 8 6:22 CDT AM CDT Narrative [facility] - 02/20/2018 6:40 AM CD T Performed at [facility] , [address] [place] [address] Sirisha Maher APRN, COMMERCIAL LITIGATION [employer]GAL LAB_1 Performing Organization Address City/[facility] Phon e Number [address] [address], [facility] [phone] ABO Rh & Antibody Screen (Type & Screen) (02/20/2018 6:07 AM CDT) Patholo gist Method Time Signature Crossmatch 02/23/2018 [facility] Expires [facility] ABO/RH(D) A NEGATIVE [facility] Antibody NEGATIVE [facility]ITAL Specimen Anatomical Collection Method Collection Time Receive d Time (Source) Location / / Volume Laterality 02/20/2018 6:07 AM 8 6:22 CDT AM CDT [facility] - 02/20/2018 7:10 AM CD T Performed at [facility] , [address] [place] [address] Sirisha Maher APRN, CNP LAB_1 Performing Organization Address City/State/ZIP Code Phon e Number [address] [address], [facility] EKG IP (02/20/2018 12:00 AM CDT) Specimen [...] Segura RN - 02/23/2018 9:57 AM CDT [facility] Plan of Care Note Assessment: Incisions [...] Carbajal RN - 02/23/2018 7:43 AM CDT [facility] Plan of Care Note Assessment: pain [...] Rico RN - 02/22/2018 10:15 PM CDT [facility] Plan of Care Note Assessment: comfort [...] Rico RN - 02/22/2018 4:00 PM CDT [facility]. MD Notified Note Name of MD notified: Ankit Time of MD notification: 1600 hours and 1 minute Reason: Pt.asking for valium now and current order for HS prn. [place]juan [place]. [id number]. Response: Valium one time dose now and HS prn. Shawn Butcher RN --- End of Report --- Plan of Care - Alec Gifford RN - 02/22/2018 1:57 PM CDT [facility] Plan of Care Note Assessment: pain [...] Lundberg RN - 02/22/2018 2:32 AM CDT [facility] Plan of Care Note Assessment: Pain [...] Orellana RN - 02/22/2018 12:33 AM CDT [facility] Plan of Care Note Assessment: Pain [...] Gifford RN - 02/21/2018 1:41 PM CDT [facility] Plan of Care Note Assessment: pain [...] Lundberg RN - 02/21/2018 4:56 AM CDT [facility]. MD Notified Note Name of MD notified: Neurosurg Time of MD notification: 0400 hours and 55 minutes Reason: [id number]- Pt reporting oral/IV pain meds ineffective. Pt upset, req further intervention. Please advise. Thanks. Response: Discussed w/ neurosurg. To be addressed in AM and PRNs to continue to be administered as able. Anita Lundberg RN --- End of Report --- Plan of Care - Anita Lundberg RN - 02/21/2018 2:26 AM CDT [facility] Plan of Care Note Assessment: Pain [...] Control/Comfort Level unable to achieve outcome Comments: [facility] Plan of Care Note Assessment: posterior neck pain worst than anterior Plan: IHR, assessment, pain control Subjective: I thought that I was going to be on a dilaudid drip Objective: Pt angry that she was not on a COW BUYER pump, Dilaudid PO and IV given q3h, [...] PM CDT 50 mcg 25-50 mcg, Intravenous, [id number], Pain, Starting on Tue02/20/18 at 1451, Until [...] HS
documented in this encounter Care Teams Uke Operator Relationship Specialty Start Date End Date Jose Holden MD PCP - General Otolaryngology 12/14/17 [place] [address] documented as of this encounter
--- OUTSIDE RECORDS SUMMARY | 2022-08-01 06:36 | XMS_ITS | Encounter Summary ---
:1965 Author Organization [facility] Address [address], [place] [address] Care Team Providers Name Role Phone Jose Holden MD Primary Care Provider [phone] Reason for Visit Reason Comments Refill Encounter Details Date Type Department Care Team Description 03/07/2018 [facility]phone [facility] Neuroscience Pete Gonzalez MD Refill Center Neurosurgery[facility]Ortho [address] [facility] [place], [place] [address] [address] [place] [address] [phone] Social History Tobacco Use Types Packs/Day Years [...] she has fallen in the past. Mandy Hoew RN 03/07/2018, 11:38 AM documented in this encounter Plan of Treatment Not on filedocumented as of this encounter Visit Diagnoses Not on filedocumented in this encounter Care Teams Ward Secretary Relationship Specialty Start Date End Date Jose Holden MD PCP - General Otolaryngology 12/14/[address] [place] [address] documented as of this encounter
--- OUTSIDE RECORDS SUMMARY | 2022-08-01 06:36 | XMS_ITS | Encounter Summary ---
:1965 Author Organization [facility] Address [address] [address] Care Team Providers Name Role Phone Jose Holden MD Primary Care Provider [phone] Reason for Visit Reason Comments QUESTIONS, GENERAL Encounter Details Date Type Department Care Team Description 03/01/2018 Telephone [facility] Pete Gonzalez MD QUESTIONS, GENERAL Neuroscience Center [address] [facility] Neurosurgery/Ortho [place], [place] [address] [address] [place] [address] [phone] Social History Tobacco Use Types Packs/Day Years [...] she should go to the ED in [place]? Please review and advise. Chantel Angela 03/01/2018, 11:15 AM documented in this encounter Plan of Treatment Not on filedocumented as of this encounter Visit Diagnoses Not on filedocumented in this encounter Care Teams Working Foreman Relationship Specialty Start Date End Date Jose Holden MD PCP - General Otolaryngology 12/14/17 [facility] [place] [address] documented as of this encounter
--- OUTSIDE RECORDS SUMMARY | 2022-08-01 06:36 | XMS_ITS | Encounter Summary ---
:1965 [facility] Address [address] [place] [address] Care Team Providers Name Role Phone Jose Holden MD Primary Care Provider [phone] Encounter Details Date Type Department Care Team [...] on filedocumented in this encounter Care Teams Geophysical Support Specialist Relationship Specialty Start Date End Date Jose Holden MD PCP - General Otolaryngology 12/14/17 [address] [place] [address] documented as of this encounter
--- OUTSIDE RECORDS SUMMARY | 2022-08-01 06:36 | XMS_ITS | Encounter Summary ---
:1965 Author Organization [facility] Address [address] [place] [address] Care Team Providers Name Role Phone Jose Holden MD Primary Care Provider [phone] Encounter Details Date Type Department Care Team Description 07/10/2018 Consent for [facility] E[facility] Procedure/Treat Neuroscience Center Tony Alvarado MD FOR TX/PROCEDURE ent Pain Management [address] [place] [phone] Social History Tobacco Use Types Packs/Day Years [...] on filedocumented in this encounter Care Teams Steep Tender Relationship Specialty Start Date End Date Jose Holden MD PCP - General Otolaryngology 12/14/[address] [place], [place] [id number] documented as of this encounter
--- OUTSIDE RECORDS SUMMARY | 2022-08-01 06:36 | XMS_ITS | Encounter Summary ---
:1965 Author [facility] Address [address] [place] [address] Care Team Providers Name Role Phone Jose Holden MD Primary Care Provider [phone] Encounter Details Date Type Department Care Team [...] on filedocumented in this encounter Care Teams Woodworking Craftsman Relationship Specialty Start Date End Date Jose Holden MD PCP - General Otolaryngology 12/14/17 [address] [place] [address] documented as of this encounter
--- OUTSIDE RECORDS SUMMARY | 2022-08-01 06:36 | XMS_ITS | Encounter Summary ---
:1965 Author Organization [facility] Address [address] [place] [address] Care Team Providers Name Role Phone Jose Holden MD Primary Care Provider [phone] Reason for Visit Reason Comments UPDATE Encounter Details Date Type Department Care Team Description 07/07/2018 Telephone [employer] Neuroscience Gume Pittman, [facility] [address] [place] [address] [place] [address] [phone] (Wo rk) Social History Tobacco Use Types [...] Arenas RN - 07/07/2018 12:44 PM CDT Supervisor Filter Assembly called patient, she states she has left neck/shoulder pain that did not improve after TPI's last week. Pt shares her right side of neck/shoulder is getting tight again and she is having headaches. Pt wants to proceed with occipital nerve blocks for her headache. Supervisor Filter Assembly offered patient appointment 07/10 which she accepted. [...] blocks instead in the future ??Barriers: 1. group home opioid use ??Plan: 1. Patient education: I [...] on filedocumented in this encounter Care Teams Tooling Mechanic Relationship Specialty Start Date End Date Jose Holden MD PCP - General Otolaryngology 12/14/17 [place] [address] documented as of this encounter
--- OUTSIDE RECORDS SUMMARY | 2022-08-01 06:36 | XMS_ITS | Encounter Summary ---
:1965 Author Organization [facility] Address [address] [address] Care Team Providers Name Role Phone Jose Holden MD Primary Care Provider Reason for Referral Therapies (Routine) - Closed Specialty Diagnoses / Procedures Referred By Contact Refer red To Contact Diagnoses S/P cervical spinal fusion Pete Gonzalez MD [address] [place] [address] Referral ID Status Reason Start Date Expiration Date Visits Requ ested Visits Authorized [id number] Closed 08/16/2018 10/15/2018 1 1 [facility] tment with a [facility] Physical Therapist. Please stop at the clinic check out desk for assistance with scheduling or if you prefer to call for your appointment you may call [facility] Outpatient Rehabilitation at [phone]. We suggest you call your [facility] insurance company about your coverage and benefits for this appointment. Encounter Details Date Type Department Care Team Description 07/07/2018 [facility]phone [facility] Pete Gonzalez MD Center Neurosurgery/Ortho [address] [facility] Spine [place], [place] [address] [address] [place] [address] [phone] Social History Tobacco Use Types Packs/Day Years [...] Del Toro - 08/16/2018 1:41 PM CDT Sign Builder contacted patient 08/16-faxed order to [facility] [phone] per patient request Chava Simon RN - [...] Type Priority Associated Diagnoses [facility] Referral Routine S/P cervical spinal fusi on Ordered: 08/16/2018 documented as of this encounter Visit Diagnoses Diagnosis S/P cervical spinal fusion - Primary Arthrodesis status documented in this encounter Care Teams Charge Hand Relationship Specialty Start Date End Date Jose Holden MD PCP - General Otolaryngology 12/14/17 [place] [address] documented as of this encounter
--- OUTSIDE RECORDS SUMMARY | 2022-08-01 06:36 | XMS_ITS | Encounter Summary ---
:1965 Author Organization [facility] Address [address] [place] [address] Care Team Providers Name Role Phone Jose Holden MD Primary Care Provider [phone] Reason for Visit Reason Comments Revisit Bilateral cervical/thoracic trigger point injections Encounter Details Date Type Department Care Team Description 06/20/2018 Office Visit [facility] Myalgia (Primary Dx); Neuroscience Center Pain RMD H/O cervical spinal arthrodesis; Management [address] Cervical vertebral fusion; [address] [place], [place] Fibromyalgia; [place] [address] Tobacco use disorder; [phone] Status post tot al left knee replacement [...] in ALL states. As laws can change booth attendant time, one should review the state government [...] treatment plan is, please contact me via [employer] online messaging or call the office at [...] had 5 surgeries most recent by Dr. Gonzlaez January 2018), s/p left knee replacement, tobacco [...] Oxycodone 5 mg Q6H - Prescribes by [facility], has been taking for [...] at a pain clinic in the past. [facility] physical therapy: Past Acupuncture: [...] anterior cervical fusion 2016 Dr. Ihsan Brooke, [facility] past surgical history reviewed with patient. [...] Gain No facility-administered medications prior to visit. 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 Patient education: I went over the above diagnoses and treatment plan with her and answered all of her questions. 2. Imaging review: None 3. Exercise program: Regular exercise and activity 4. Medications: No changes. Do not recommend machine long goods helper opioid use, continue to decrease use until [...] Medicine Physical Medicine and Rehabilitation [facility] Pain Management This document serves as a record of services personally performed by oTny Pittman MD. It was created on his behalf by Gillian Harding, a trained medical collections representative. The creation of this record is based [...] replacement documented in this encounter Care Teams Compliance Associate Relationship Specialty Start Date End Date Jose Holden MD PCP - General Otolaryngology 12/14/17 [facility] [place] [address] documented as of this encounter
--- OUTSIDE RECORDS SUMMARY | 2022-08-01 06:36 | XMS_ITS | Encounter Summary ---
:1965 Author Organization [facility] Address [address], [place] [address] Care Team Providers Name Role Phone Jose Holden MD Primary Care Provider [phone] Reason for Visit Reason Comments Medication Check In Encounter Details Date Type Department Care Team Description 03/07/2018 Telephone [facility] Pete Gonzalez MD Medication Check In [facility] [facility]Ortho S [place], [place] [address] [address] [place] [address] [phone] Social History Tobacco Use Types Packs/Day Years [...] 12:25 PM CDT Pharmacist Mandy calling from [facility]. She would like to inform provider [...] on filedocumented in this encounter Care Teams Probate Clerk Relationship Specialty Start Date End Date Jose Holden MD PCP - General Otolaryngology 12/14/17 [place] [address] documented as of this encounter
--- OUTSIDE RECORDS SUMMARY | 2022-08-01 06:36 | XMS_ITS | Encounter Summary ---
:1965 Author Organization [facility] Address [address], [place] [address] Care Team Providers Name Role Phone Jose Holden MD Primary Care Provider [phone] Reason for Visit Reason Comments Revisit Bilateral cervical/thoracic trigger point injections Encounter Details Date Type Department Care Team Description 08/14/2018 Office Visit [facility] occipital neuralgia (Primary Dx); Neuroscience Center Pain RMD Myalgia; Management [address] H/O cervical spinal arthrodesis [address] [place] [phone] Social History Tobacco Use Types Packs/Day Years [...] Pittman MD - 08/14/2018 3:00 PM CDT [facility] Follow-up Visit 08/14/2018 [...] Oxycodone 5 mg Q6H - Prescribes by [facility], has been taking [...] at a pain clinic in the past. [facility] physical therapy: Past [...] ??? medical cannabis patient certified Take 1 [place] by mouth . ??? naloxone (NARCAN) 4 [...] Gain No facility-administered medications prior to visit. [place] and [place] Prescription Monitoring Program reviewed Allergies: [...] in her mother. Social history:she lives in [place], [place].she is not currently working. Smokin/2 ppd. [...] MD Pain Medicine [facility] This document serves as a record of services personally performed by Tony Pittman MD. It was created on his behalf by Gillian Harding, a trained auditor medical claims. The creation of this record is based [...] status documented in this encounter Care Teams Pulp Roller Relationship Specialty Start Date End Date Jose Holden MD PCP - General Otolaryngology 12/14/17 [facility] [place] [address] documented as of this encounter
--- OUTSIDE RECORDS SUMMARY | 2022-08-01 06:36 | XMS_ITS | Encounter Summary ---
:1965 Author [facility] Address [address] [place] [address] Care Team Providers Name Role Phone Jose Holden MD Primary Care Provider [phone] Reason for Visit Reason Comments Medication Questions FYI Encounter Details Date Type Department Care Team Description 03/01/2018 Telephone [facility] Pete Gonzalez MD Medication Questions; Neuroscience Center [address] [place] [address] FY I Neurosurgery/Ortho [address] [place] [address] [place] [address] [phone] (Wo rk) Social History Tobacco Use Types [...] on filedocumented in this encounter Care Teams Nursing Teacher Relationship Specialty Start Date End Date Jose Holden MD PCP - General Otolaryngology 12/14/17 [facility] [place] [address] documented as of this encounter
--- OUTSIDE RECORDS SUMMARY | 2022-08-01 06:36 | XMS_ITS | Encounter Summary ---
:1965 [facility] Address [address], [place] [address] Care Team Providers Name Role Phone Jose Holden MD Primary Care Provider [phone] Reason for Referral Procedure/Equipment (Routine) - Incomplete Specialty Diagnoses / Procedures Referred By Contact Refer red To Contact Diagnoses S/P cervical spinal fusion Sirisha Rankin, Procedures XR Cervical Spine AP/Lat Upright KALPANA SHER [address] [place] [address] Referral ID Status Reason Start Date Expiration Date Visits V isits Requested Authorized [id number] Incomplete 04/05/2018 07/05/2019 1 1 Reason for Visit Reason Comments POST-OP,EXAM Encounter Details Date Type Department Care Team Description 04/05/2018 Office Visit [facility] Sneha Maher, S/Camelia cervic al spinal Neuroscience Center RODRICK Newberry CNP fusion (Primary Dx) Neurosurgery/Ortho [address] Spine [place], [place] [address] [address] [place] [address] [phone] Social History Tobacco Use Types Packs/Day Years [...] your understanding. Please call the Neurosurgery Center [phone] with any further questions or concerns or if your symptoms worsen. Thank you for coming to see us today. We are your partner. documented in this encounter Progress Notes Sirisha Rankin, COMPOSITION SIDING WORKER, PHLEBOTOMY SUPERVISOR - 04/05/2018 1:00 PM CDT POSTOPERATIVE DIAGNOSES: [...] a divorce [place] to [place] in the [place]. She would like to have an appointment with Dr. Gonzalez prior to her move out of [facility]. She denies any incisional concerns. [...] elbow(tricep) R:5/5 L: 5/5 C8 - Finger flexors(director of optimization) R:5/5 L: 5/5 T1 - Finger abduction/adduction [...] PM CDT Narrative 06/14/2018 5:54 PM CDT [facility] XR CERVICAL SPINE AP/LAT UPRIGHT 06/14/2018 [...] soft tissue swelling. Remainder unchanged. Sirisha Maher COMPOSITION SIDING WORKER, PHLEBOTOMY SUPERVISOR RAD GD documented in this encounter Visit Diagnoses Diagnosis S/P cervical spinal fusion - Primary Arthrodesis status S/P cervical spinal fusion Arthrodesis status documented in this encounter Care Teams Technical Recruiter Relationship Specialty Start Date End Date Jose Holden MD PCP - General Otolaryngology 12/14/17 [place] [address] documented as of this encounter
--- OUTSIDE RECORDS SUMMARY | 2022-08-01 06:36 | XMS_ITS | Encounter Summary ---
:1965 [facility] Address [address] [place] [address] Care Team Providers Name Role Phone Jose Holden MD Primary Care Provider [phone] Reason for Visit Reason Comments Revisit trigger point injections Encounter Details Date Type Department Care Team Description 06/29/2018 Office Visit [facility] Myalgia (Primary Dx); Neuroscience Center Raul Alvarado MD Medical marijuana use; Management [address] H/O cervical spinal arthrodesis; [address] [place], [place] [address] [phone] Social History Tobacco Use Types Packs/Day Years [...] treatment plan is, please contact me via [employer] online messaging or call the office at and ask to speak to a nurse. Tony Pittman MD Pain Medicine documented in this encounter Progress Notes Tony Pittman MD - 06/29/2018 10:20 AM CDT [facility] Follow-up Visit 06/29/2018 [...] mg Q6H - Prescribes by [facility], has been taking [...] pain clinic in the past. [facility] physical therapy: Past [...] ??? medical cannabis patient certified Take 1 [place] by mouth . ??? naloxone (NARCAN) 4 [...] Gain No facility-administered medications prior to visit. [place] and [place] Prescription Monitoring Program reviewed Allergies: [...] in her mother. Social history:she lives in [place], [place].she is not currently working. Smokin/2 ppd. 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 Patient education: I [...] Pain Medicine Physical Medicine and Rehabilitation [facility] Pain Management This document serves as a record of services personally performed by Tony Pittman MD. It was created on his behalf by Gillian Harding, a trained medical oncologist. The creation of this record is based [...] disorder documented in this encounter Care Teams Fan Blade Aligner Relationship Specialty Start Date End Date Jose Holden MD PCP - General Otolaryngology 12/14/[address] [place] [address] documented as of this encounter
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
--- OUTSIDE RECORDS SUMMARY | 2022-08-01 06:36 | XMS_ITS | Encounter Summary ---
:1965 Author Organization [facility] Address [address] [place] [address] Care Team Providers Name Role Phone Jose Holden MD Primary Care Provider [phone] Encounter Details Date Type Department Care Team Description 06/29/2018 Consent for [facility] ENT Procedure/Treat Neuroscience Center Tony Alvarado MD FOR TX/PROCEDURE ent Pain Management [address] [place] [phone] Social History Tobacco Use Types Packs/Day Years [...] on filedocumented in this encounter Care Teams Fee Clerk Relationship Specialty Start Date End Date Jose Holden MD PCP - General Otolaryngology 12/14/[address] [place], [place] [phone] documented as of this encounter
--- OUTSIDE RECORDS SUMMARY | 2022-08-01 06:36 | XMS_ITS | Encounter Summary ---
:1965 Author Organization [facility] Address [address] [address] Care Team Providers Name Role Phone Jose Holden MD Primary Care Provider [phone] Reason for Visit Reason Onset Date Comments Refill 03/01/2018 Encounter Details Date Type Department Care Team Description 03/01/2018 Refill [facility] Neuroscience [place] Chava Simon RN Refill Neurosurgery/Ortho S [address] [place] [address] Social History Tobacco Use Types [...] as per standard weaning. Sirisha Jefferson APRN, CORRECTIONAL THERAPY DIRECTOR 03/01/2018, 11:49 AM Electronically signed by Sirisha Rankin, SYSTEMS INTEGRATION ENGINEER, CORRECTIONAL THERAPY DIRECTOR at 03/01/2018 11:51 AM CDT Chava Simon [...] pt. have a f/u appointment: 04/05/2018 Pharmacy: [facility] pharmacy Chava Simon RN 03/01/2018, 11:40 AM documented in this encounter Plan of Treatment Not on filedocumented as of this encounter Visit Diagnoses Not on filedocumented in this encounter Care Teams Child Care Center Administrator Relationship Specialty Start Date End Date Jose Holden MD PCP - General Otolaryngology 12/14/[address] [place], [place] [address] [address] documented as of this encounter
--- OUTSIDE RECORDS SUMMARY | 2022-08-01 06:36 | XMS_ITS | Encounter Summary ---
:1965 Author Organization [facility] Address [address] [place] [address] Care Team Providers Name Role Phone Jose Holden MD Primary Care Provider [phone] Encounter Details Date Type Department Care Team Description 08/14/2018 Consent for [facility] ENT Procedure/Treat Neuroscience Center Tony Alvarado MD FOR TX/PROCEDURE ent Pain Management [address] [place] [phone] Social History Tobacco Use Types Packs/Day Years [...] on filedocumented in this encounter Care Teams Machine Sorter Relationship Specialty Start Date End Date Jose Holden MD PCP - General Otolaryngology 12/14/[address] [place], [place] [phone] documented as of this encounter
--- OUTSIDE RECORDS SUMMARY | 2022-08-01 06:36 | XMS_ITS | Encounter Summary ---
:1965 Author Organization [facility] Address [address] [place] [address] Care Team Providers Name Role Phone Jose Holden MD Primary Care Provider [phone] Reason for Referral Procedure/Equipment (Routine) - Closed Specialty Diagnoses / Procedures Referred By Contact Refer red To Contact Diagnoses Neck pain Pete Gonzalez MD [address] [place] [id number] Referral ID Status Reason Start Date Expiration Date Visits Requ ested Visits Authorized [id number] Closed 06/14/2018 12/11/2018 1 1 Scheduling Instructions [...] Dx); [facility] Neck pain Neurosurgery/Ortho [address] [facility] Spine [address] [place] [address] [place] [phone] Social History Tobacco Use Types Packs/Day Years [...] your understanding. Please call the Neurosurgery Center [phone] with any further questions or concerns or [...] Cervicalgia documented in this encounter Care Teams Package Line Relief Operator Relationship Specialty Start Date End Date Jose Holden MD PCP - General Otolaryngology 12/14/17 [place] [address] documented as of this encounter
--- NOTE | 2022-08-01 06:37 | CRLHL7_ITS ---
For Patients: As a result of the Century Cures Act, medical imaging exams and procedure reports are released immediately into your electronic medical record. You may view this report before your referring provider. If you have questions, please contact your health care provider. INDICATION: Stroke-like symptoms. TECHNIQUE: CT of the head without contrast. Coronal and sagittal reformats are included. COMPARISON: None. FINDINGS: No CT evidence of acute cortical infarct. No hyperdense vessels to suggest intracranial thrombus. No acute intracranial hemorrhage. No mass effect or midline shift. No hydrocephalus or extra-axial collections. 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 These are stable. No acute osseous abnormalities. Mastoid air cells and paranasal sinuses are clear. Normal soft tissues. IMPRESSION: IMPRESSION:1. No CT evidence of acute cortical infarct. No acute intracranial hemorrhage. No other acute intracranial findings. Please note that all CT scans at this facility use dose modulation, iterative reconstruction, and/or weight-based dosing when appropriate to reduce radiation dose to as low as reasonably achievable. Dictated by Emre Reynaga MD @ 08/01/2022 7:30:19 AM (Electronically Signed)
--- NOTE | 2022-08-01 06:37 | CT_ITS ---
Final Report Patient: KAYLIN BENDER Facility:?[facility] Patient ID:?[id number] Site Patient ID:?[id number]. Site :?1965 Study:?CT Neck Angio W/IV ONLY-08/01/2022 7:00:46 AM Ordering Physician:Nayan Rhodes Final Report: DATE: 08/01/2022 CLINICAL HISTORY: Patient with focal neurological deficits. TECHNIQUE: Standard helical CT image acquisition of the neck up to the skull base after bolus intravenous contrast enhancement. Multiplanar reconstructed images performed on a separate workstation. COMPARISON: CT same day. 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 The distal vertebral artery fills via retrograde flow from the vertebrobasilar junction. The origins of the great vessels from the aortic arch are patent. The origin of the right vertebral artery is patent. The origin of the left vertebral artery is patent. The common carotid arteries are patent. There is no stenosis at the origin of the right internal carotid artery. There is no stenosis at the origin of the left internal carotid artery. The rest of the cervical segments of the internal carotid arteries are patent up to the skull base. The left vertebral artery is dominant. The cervical segments of the left vertebral artery are patent up to the skull base. The visualized lung apices are unremarkable. The thyroid gland is unremarkable. The soft tissues of the neck are unremarkable. There are degenerative changes in the cervical spine. IMPRESSION: 1. 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 The distal vertebral artery fills via retrograde flow from the vertebrobasilar junction. 2. Patent rest of the cervical vasculature. Please note that all CT scans at this facility use dose modulation, iterative reconstruction, and/or weight-based dosing when appropriate to reduce radiation dose to as low as reasonably achievable. Dictated by Kurt Toney MD @ 08/01/2022 1:55:51 PM (Electronic Signature)
--- NOTE | 2022-08-01 06:37 | CT_ITS ---
Final Report Patient: KAYLIN BENDER Facility:?[facility] Patient ID:?[id number] Site Patient ID:?[id number]. Site :?1965 Study:?CT Head Angio W/IV ONLY-08/01/2022 7:01:09 AM Ordering Physician:Nayan Rhodes Final Report: DATE: 08/01/2022 CLINICAL HISTORY: Patient with focal neurological deficits. TECHNIQUE: Standard helical CT image acquisition through the intracranial circulation following intravenous administration of contrast material with bolus tracking. Multiplanar reconstructed images were performed and interpreted. COMPARISON: CT same day. FINDINGS: There is no proximal intracranial large vessel occlusion. There is a 4mm left lateral paraclinoid ICA aneurysm. There are infundibula at the origins of the left posterior communicating and left anterior choroidal arteries. The right internal carotid artery is normal. The right middle cerebral artery and its branches are normal. The right anterior cerebral artery and its branches are normal. The left middle cerebral artery and its branches are normal. The left anterior cerebral artery and its branches are normal. The anterior communicating artery is well visualized and appears normal. The right vertebral artery and PICA fill via retrograde flow from the vertebrobasilar junction. The left vertebral artery and PICA are normal. The left vertebral artery is dominant. The basilar artery is patent and appears normal. The right posterior cerebral artery is normal. The left posterior cerebral artery is normal. The visualized venous structures are patent. IMPRESSION: 1. No proximal intracranial large vessel occlusion. 2. 4mm left lateral paraclinoid ICA aneurysm. Telehealth consultation with [facility]`s Neurointerventional team for enrollment in our long-term aneurysm surveillance program can be arranged by calling [phone]. Please note that all CT scans at this facility use dose modulation, iterative reconstruction, and/or weight-based dosing when appropriate to reduce radiation dose to as low as reasonably achievable. Dictated by Kurt Toney MD @ 08/01/2022 2:01:08 PM (Electronic Signature)
--- OUTSIDE RECORDS SUMMARY | 2022-08-01 06:37 | XMS_ITS | Encounter Summary ---
:1965 Author Organization [facility] Address [address] [address] Care Team Providers Name Role Phone Jose Holden MD Primary Care Provider [phone] Reason for Visit Auth/Cert Specialty Diagnoses / [...] Expiration Date Visits Requ ested Visits Authorized [id number] 1 1 Encounter Details Date Type Department Care Team Description 02/20/2018 Surgery RH Operating Room Marky Gonzalez MD FUSION POSTERIOR [address] [place] [address] [place], [place] C2-T3, REMOVAL HARDWARE [phone] [id number] SPINE Anterior plate [phone] (Wo rk) and Posterior screws and rods [...] encounter Discharge Summaries Sneha Maher, Sirisha Celaya, INDUSTRIAL SPECIALIST, NICKEL PLANT OPERATOR - 02/23/2018 9:09 AM CDT Neurosurgery Discharge [...] Hospital Course: Angie Bender was admitted to [facility] on 02/20/2018 following posterior C2-T3 with Dr. [...] 9.4 - 12.4 fl Narrative Performed at [facility], [address] [place] [address] Physical Exam: BP 124/78 Pulse 74 Temp [...] T1. 3. Intraoperative placement and removal of Taylor-Smart Holograms tongs. 4. Hardware removal, C6-T1 posterior. 5. [...] in strength to your extremeties. Neurosurgery clinic [phone]. If it is after hours, please call [...] neurosurgery RN on 03/07 at 11AM at [address] [place] [address], 2nd floor. 2. Follow up with Dr. Gonzalez/Lois Pham PA-C/Sirisha Maher NP on 04/05 at 1:00PM at [address] [place] [address]. Patient also instructed to call clinic at [phone] or [facility] for any questions or concerns. Patient verbalizes understanding and states no further questions at this time. 3. Follow up with PCP for any medical issues Total time spent at the time of discharge was 30 minutes Sirisha Maher APRN, [place] Pgr#[phone] documented in this encounter Discharge Instructions Discharge InstructionsDonna Ellis RN - 02/23/2018 10:42 AM CDT [place] [address] General Information Discharging physician: Dr. Gonzalez [facility] Emergency & Urgently Needed Care: For emergencies call 911 and/or get medical help right away. If you are a [facility] member and have medical needs after clinic hours you may call the [facility] [phone] or . Fall Prevention Recommendations ??? Follow [...] Ellis RN - 02/23/2018 11:50 AM CDT [facility] Discharge Note - Nursing [...] End of Report --- Sirisha Rankin APRN, NICKEL PLANT OPERATOR - 02/23/2018 9:02 AM CDT Neurosurgery Progress [...] including C3- T1 posterior fusion (done in [place] approx 6 years ago), with C6-T1 pseudoarthrosis, [...] Dc home today ?? Sirisha Maher APRN, NICKEL PLANT OPERATOR 02/23/2018, 9:02 AM Neurosurgery Pgr#[phone] Jolene Kaur PA-C - 02/22/2018 12:45 PM [...] including C3- T1 posterior fusion (done in [place] approx 6 years ago), with C6-T1 pseudoarthrosis, [...] Lois Pham PA-C, 02/22/2018, 9:05 AM Neurosurgery [phone] He Reyes MD - 02/22/2018 8:29 AM [...] with any questionsor concerns. He Reyes M.D. [facility] Pain Management [phone] INTERVAL HISTORY: She started tizanidine last night [...] 02/22/18 0743 Current Outpatient Prescriptions Ordered in [facility] Medication Sig Dispense Refill ??? sennosides-docusate [...] TIME SPENT: 35 minutes including 50% time hmbo-je-hlov time counseling her about her diagnosis and treatment options, and coordinating care with the primary team. DECISION-MAKING: The level of decision-making in this case is high/complex due to the complexity of medical problems, acute/chronic pain, opioid analgesia issues, and behavioral factors. He Reyes M.D. Brooklyn Whittington - 02/21/2018 1:47 PM CDT [facility] Care Management Screening Admission Info: Cognitive capacity [...] She see Dr Dr Estephanie Franz at [facility]. No DC needs anticipated. I verified the demographics on the face sheet for the correct address, phone number, emergency contact and PCP information. Brooklyn Whittington RN CM [phone] Lois Pham PA-C - 02/21/2018 9:23 AM CDT Neurosurgery Progress Note Date of service: 02/21/2018 Subjective: Feels sore. Upset she did not have DETAIL SERGEANT overnight. Wants to go smoke. Wants to [...] including C3- T1 posterior fusion (done in [place] approx 6 years ago), with C6-T1 pseudoarthrosis, [...] there were a couple of options including DETAIL SERGEANT vs IV pain medications for post op pain control, and rationale for non DETAIL SERGEANT at this time. Did discuss that would not recommend DC as drain still has high output. Upright xrays prior to DC Up with assistance Continue hemovac until <30/shift Soft collar when OOB, PRN in bed for comfort PT/OT Dispo: Anticipate home in next 1-2 days pending drain output Lois Pham PA-C, 02/21/2018, 9:23 AM Neurosurgery [phone] He Reyes MD - 02/20/2018 1:20 PM CDT Note from Dr. Covarrubias on 02/13/18: ? 1. On the day of surgery please order an Inpatient pain consult 2. Ketamine 5mg/h during surgery ?? Recommendations for opioids: ?? If using a DETAIL SERGEANT: No oral opioids Start a DETAIL SERGEANT pump with Dilaudid continuous IV infusion at a basal rate of 0.1 mg/hr with DETAIL SERGEANT boluses of 0.2-0.4 mg every 10 minutes. ?? If not using a DETAIL SERGEANT: Start dilaudid 2-4mg q3h prn (alternatively can [...] Pham PA-C - 02/20/2018 3:24 PM CDT [facility] Brief Operative Progress Note Surgery Date: 02/20/2018 Surgeon(s) and Role: * Marky Gonzalez MD - Primary PHYSICIAN ENDOCRINOLOGY PHYSICIAN-Meka Pham Pre-op Diagnosis: * Cervical spondylosis with [...] The procedure was medically necessary for an acute care nursing assistant because Dr. Gonzalez needed the operative [...] Lois Pham PA-C, 02/20/2018, 3:25 PM Neurosurgery [phone] Marky Gonzalez MD - 02/20/2018 12:00 AM CDT [facility]: [id number] OPERATIVE REPORT DATE OF SURGERY: 02/20/2018 : 1965 SURGEON: MARKY GONZALEZ MD ENDOCRINOLOGY PHYSICIAN: Lois Pham PA-C. PREOPERATIVE DIAGNOSES: 1. Status [...] stepwise fashion using absorbable suture. We placed Taylor-Smart Holograms tongs and then flipped the patient prone [...] all critical portions. MARKY GONZALEZ MD MMK/MODL /[id number] cc: MARKY GONZALEZ MD documented in this [...] the risk. She has been on these tube dispatcher, desires to eventually come off. She also [...] with any questionsor concerns. He Reyes M.D. [facility] Pain Management [phone] HISTORY OF PRESENT ILLNESS: Per Chart Review: [...] - headache Opioid prescriber: LEDY Ojeda MD-valium [facility] database review: Risk Factors: History of substance [...] CURRENT MEDICATIONS: Current Facility-Administered Medications Ordered in [facility] Medication Dose Route Frequency Provider Last [...] Lois Pham PA-C ??? glucose-ascorbic acid (aka [id number]) chewable tablet 4 Tab 4 Tab Oral [...] TIME SPENT: 70 minutes including 50% time mwjv-ov-wwhv time counseling her about her diagnosis and treatment options, and coordinating care with the primary team. DECISION-MAKING: The level of decision-making in this case is high/complex due to the complexity of medical problems, acute/chronic pain, opioid analgesia issues, and behavioral factors. documented in this encounter Miscellaneous Notes OR Nursing - Monica Pate, RN - 02/20/2018 2:49 PM CDT [facility] Progress Note Patient Name: Angie [...] failure. Anatomic alignment. Shoulder prosthesis. Sirisha Maher INDUSTRIAL SPECIALIST, NICKEL PLANT OPERATOR RAD GD (ABNORMAL) Complete Blood Count-No Diff (02/22/2018 12:36 PM CDT) athologist Signature WBC 10.2 4.0 - 11.0 [facility] RBC 3.36 (L) 4.0 - 5.2 [facility] Hemoglobin 11.1 (L) 12.0 - 16.0 [facility] g/dl [facility] HCT 33.2 (L) 36.0 - 46.0 [facility] MCV 98.8 80 - 100 fl [facility] MCH 33.0 26 - 34 pg [facility] MCHC 33.4 32 - 36 [facility] g/dl [facility] RDW 14.4 11.5 - 14.5 [facility] Platelets 183 150 - 450 [facility] MPV 10.6 9.4 - 12.4 [facility] Specimen Anatomical Collection Method Collection Time Receive d Time (Source) Location / / Volume Laterality 02/22/2018 12:36 02/22/2018 PM CDT 12:37 PM CDT Narrative [facility] - 02/22/2018 12:46 PM C DT Performed at [facility] , [address] [place] [address] Lois Pham PA-C LAB_1 Performing Organization Address City/State/ZIP Code Phon e Number [facility] [address] [place] [address] [address], [facility] [phone] XR Cervical Spine AP/Lat Upright (02/21/2018 9:50 [...] Marky Gonzalez MD LAB_1 Performing Organization Address City/[facility] Phon e Number [address] [address] [place] [address], [facility] [phone] (ABNORMAL) Basic Metabolic Panel (02/21/2018 7:12 AM [...] Est., If >60 >60 [facility] Black ml/min/1.7 [facility] 3m2 Specimen Anatomical Collection Method Collection Time Receive d Time (Source) Location / / Volume Laterality 02/21/2018 7:12 AM 8 7:13 CDT AM CDT Narrative [facility] - 02/21/2018 7:47 AM CD T Performed at [facility] , [address] [place] [address] Lois Pham PA-C LAB_1 Performing Organization Address [facility]/ZIP [facility] Phon e Number [address] [address] [place] [address], [facility] (ABNORMAL) Hemogram with Plts (02/21/2018 7:12 AM CDT) athologist Signature WBC 10.0 4.0 - 11.0 [facility] RBC 3.29 (L) 4.0 - 5.2 [facility] Hemoglobin 10.7 (L) 12.0 - 16.0 [facility] g/dl HOSPITAL HCT 32.2 (L) 36.0 - 46.0 [facility] MCV 97.9 80 - 100 fl [facility] MCH 32.5 26 - 34 pg [facility] MCHC 33.2 32 - 36 [facility] g/dl HOSPITAL RDW 13.9 11.5 - 14.5 [facility] Platelets 186 150 - 450 [facility] MPV 10.3 9.4 - 12.4 [facility] Specimen Anatomical Collection Method Collection Time Receive d Time (Source) Location / / Volume Laterality 02/21/2018 7:12 AM 8 7:13 CDT AM CDT Narrative [facility] - 02/21/2018 7:26 AM CD T Performed at [facility] , [address] [place] [address] Lois Pham PA-C LAB_1 Performing Organization Address City/[facility] Phon e Number [address] [address], [facility] [phone] Glucose, Whole Blood POC (02/20/2018 11:20 PM CDT) athologist Signature Glucose, Whole 140 70 - 180 [facility] Blood mg/dl [facility] Comment: Point of Care Testing No Action Required Specimen Anatomical Collection Method Collection Time Receive d Time (Source) Location / / Volume Laterality 02/20/2018 11:20 02/20/2018 PM CDT 11:26 PM CDT Marky Gonzalez MD LAB_1 Performing Organization Address City/[facility] Phon e Number [address] [address], [facility] Glucose, Whole Blood POC (02/20/2018 5:05 PM CDT) athologist Signature Glucose, Whole 145 70 - 180 [facility] Blood mg/dl [facility] Comment: Point of Care Testing No Action Required Specimen Anatomical Collection Method Collection Time Receive d Time (Source) Location / / Volume Laterality 02/20/2018 5:05 PM 8 5:25 CDT PM CDT Marky Gonzalez MD LAB_1 Performing Organization Address City/State/ZIP Code Phon e Number [address] [address], [facility] Glucose, Whole Blood POC (02/20/2018 3:45 PM CDT) athologist Signature Glucose, Whole 145 70 - 180 [facility] Blood mg/dl HOSPITAL Comment: Point of Care Testing No Action Required Specimen Anatomical Collection Method Collection Time Receive d Time (Source) Location / / Volume Laterality 02/20/2018 3:45 PM 8 3:52 CDT PM CDT Marky Gonzalez MD LAB_1 Performing Organization Address City/[facility]/ZIP Code Phon e Number [address] [address], [facility] XR C-Arm 0-30 Minutes (02/20/2018 2:05 PM CDT) Anatomical Region Laterality Modality Other Specimen (Source) Anatomical Location Collection Method / Collectio n Time Received Time / Laterality Volume Narrative 02/20/2018 2:06 PM CDT Fluoroscopy provided by a operating room surgical technologist. Exact fluoroscopy time is documented in end of exam information in EPIC Marky Gonzalez MD RAD GD XR C-Arm 2.5-3 Hours (02/20/2018 12:45 PM CDT) Anatomical Region Laterality Modality Other Specimen (Source) Anatomical Location Collection Method / Collectio n Time Received Time / Laterality Volume Narrative 02/20/2018 12:45 PM CDT Fluoroscopy provided by a operating room surgical technologist. Exact fluoroscopy time is documented in end of exam information in EPIC Marky Gonzalez MD RAD GD XR C-Arm 30-59 Minutes (02/20/2018 12:36 PM CDT) Anatomical Region Laterality Modality Other Specimen (Source) Anatomical Location Collection Method / Collectio n Time Received Time / Laterality Volume Narrative 02/20/2018 12:36 PM CDT Fluoroscopy provided by a operating room surgical technologist. Exact fluoroscopy time is documented in end of exam information in EPIC Marky Gonzalez MD RAD GD Glucose, Whole Blood POC (02/20/2018 9:02 AM CDT) athologist Signature Glucose, Whole 135 70 - 180 [facility] Blood mg/dl [facility] Comment: Point of Care Testing RN Notified Specimen Anatomical Collection Method Collection Time Receive d Time (Source) Location / / Volume Laterality 02/20/2018 9:02 AM 8 9:08 CDT AM CDT Marky Gonzalez MD LAB_1 Performing Organization Address City/[facility]/ZIP Code Phon e Number [address] [address] [place] [address], [facility] Glucose, Whole Blood POC (02/20/2018 6:25 AM CDT) athologist Signature Glucose, Whole 90 70 - 180 [facility] Blood mg/dl [facility] Specimen Anatomical Collection Method Collection Time Receive d Time (Source) Location / / Volume Laterality 02/20/2018 6:25 AM 8 6:34 CDT AM CDT Marky Gonzalez MD LAB_1 Performing Organization Address City/[facility]/ZIP Code Phon e Number [address] [address], [facility] [phone] ABO/RH(D) Retype (02/20/2018 6:22 AM CDT) athologist Signature ABO/RH(D) A NEGATIVE [facility] Specimen Anatomical Collection Method Collection Time Receive d Time (Source) Location / / Volume Laterality 02/20/2018 6:22 AM 8 6:25 CDT AM CDT Narrative [facility] - 02/20/2018 7:06 AM CD T Performed at [facility] , [address] [place] [address] Marky Gonzalez MD LAB_1 Performing Organization Address City/[facility]/ZIP Code Phon e Number [address] [address], [facility] INR/Protime (PT/INR) (02/20/2018 6:08 AM CDT) P athologist Signature Protime 13.0 12.0 - 14.5 [facility] INR 1.0 0.9 - 1.1 [facility] Specimen Anatomical Collection Method Collection Time Receive d Time (Source) Location / / Volume Laterality 02/20/2018 6:08 AM 8 6:22 CDT AM CDT Narrative [facility] - 02/20/2018 6:40 AM CD T Performed at [facility] , [address] [place] [address] Sirisha Maher APRN, CNP LAB_1 Performing Organization Address City/[facility] Phon e Number [address] [address] [place] [address], [facility] Hemogram with Platelets (02/20/2018 6:08 AM CDT) P athologist Signature WBC 6.7 4.0 - 11.0 [facility] RBC 4.13 4.0 - 5.2 [facility] Hemoglobin 13.5 12.0 - 16.0 [facility] gdl [facility] HCT 39.8 36.0 - 46.0 [facility] MCV 96.4 80 - 100 [facility] MCH 32.7 26 - 34 pg [facility] MCHC 33.9 32 - 36 [facility] RDW 13.8 11.5 - 14.5 [facility] Platelets 245 150 - 450 [facility] MPV 10.6 9.4 - 12.4 [facility] Specimen Anatomical Collection Method Collection Time Receive d Time (Source) Location / / Volume Laterality 02/20/2018 6:08 AM 8 6:22 CDT AM CDT Narrative [facility] - 02/20/2018 6:32 AM CD T Performed at [facility] , [address] [place] [address] Sirisha Maher APRN, NICKEL PLANT OPERATOR LAB_1 Performing Organization Address City/[facility]/ZIP [facility] Phon e Number [address] [address], [facility] (ABNORMAL) Basic Metabolic Panel (02/20/2018 6:08 AM CDT) athologist Signature Sodium 139 136 - 145 [facility] mmol/L [facility] Potassium 4.4 3.5 - 5.1 [facility] mmol/L HOSPITAL Comment: Specimen Slightly Hemolyzed Hemolysis May Affect Result Chloride 109 98 - 109 mmol/L [facility] AL CO2 18 (L) 20 - 29 mmol/L [facility] L Anion Gap (calc.) 12 7 - 16 mmol/L [facility] Glucose 96 70 - 180 mg/dl [facility] L Calcium 9.4 8.4 - 10.2 mg/dl [facility] EHSAN BUN 14 7 - 26 mg/dl [facility] Creatinine 0.69 0.55 - 1.02 mg/dl [facility] GFR, Estimated >60 >60 ml/min/1.73m2 [facility] GFR, Est., If Black >60 >60 ml/min/1.73m2 [facility] Specimen Anatomical Collection Method Collection Time Receive d Time (Source) Location / / Volume Laterality 02/20/2018 6:08 AM 8 6:22 CDT AM CDT [facility] - 02/20/2018 6:52 AM CD T Performed at [facility] , [address] [place] [address] Sirisha Maher APRN, NICKEL PLANT OPERATOR LAB_1 Performing Organization Address City/State/ZIP Code Phon e Number [address] [address], [facility] aPTT (Activated Partial Thromboplastin Time) (02/20/2018 6:08 AM CDT) athologist Signature PTT 26.8 24.0 - 37.0 [facility] sec [facility] Specimen Anatomical Collection Method Collection Time Receive d Time (Source) Location / / Volume Laterality 02/20/2018 6:08 AM 8 6:22 CDT AM CDT [facility] - 02/20/2018 6:40 AM CD T Performed at [facility] , [address] [place] [address] Sirisha Celaya Sneha Maher APRN, NICKEL PLANT OPERATOR LAB_1 Performing Organization Address City/[facility]/ZIP Code Phon e Number [address] [address], [facility] ABO Rh & Antibody Screen (Type & Screen) (02/20/2018 6:07 AM CDT) [facility] gist Method Time Signature Crossmatch 02/23/2018 [facility] HOSPITAL ABO/RH(D) A NEGATIVE [facility] Antibody NEGATIVE [facility] Screen HOSPITAL Specimen Anatomical Collection Method Collection Time Receive d Time (Source) Location / / Volume Laterality 02/20/2018 6:07 AM 8 6:22 CDT AM CDT Narrative [facility] - 02/20/2018 7:10 AM CD T Performed at [facility] , [address] [place] [address] Sirisha Maher APRN, NICKEL PLANT OPERATOR LAB_1 Performing Organization Address City/[facility] Phon e Number [address] [address], [facility] EKG IP (02/20/2018 12:00 AM CDT) Specimen (Source) Anatomical Location Collection Method / Collectio n Time Received Time / Laterality Volume 02/20/2018 Narrative This result has an attachment that is no t available. Provider [facility] EKG documented in this encounter Visit Diagnoses [...] Segura, RN - 02/23/2018 9:57 AM CDT [facility] Plan of Care Note Assessment: [...] Carbajal RN - 02/23/2018 7:43 AM CDT [facility] Plan of Care Note Assessment: [...] Rico RN - 02/22/2018 10:15 PM CDT [facility] Plan of Care Note Assessment: [...] Rico RN - 02/22/2018 4:00 PM CDT [facility]. MD Notified Note Name of MD notified: Ankit Time of MD notification: 1600 hours and 1 minute Reason: Pt.asking for valium now and current order for HS prn. plz review. [id number]. Response: Valium one time dose now and HS prn. Shawn Butcher RN --- End of Report --- Plan of Care - Alec Gifford RN - 02/22/2018 1:57 PM CDT [facility] Plan of Care Note Assessment: [...] Lundberg RN - 02/22/2018 2:32 AM CDT [facility] Plan of Care Note Assessment: [...] Orellana RN - 02/22/2018 12:33 AM CDT [facility] Plan of Care Note Assessment: [...] Gifford RN - 02/21/2018 1:41 PM CDT [facility] Plan of Care Note Assessment: [...] Lundberg RN - 02/21/2018 4:56 AM CDT [facility]. MD Notified Note Name of MD notified: Neurosurg Time of MD notification: 0400 hours and 55 minutes Reason: [id number]- Pt reporting oral/IV pain meds ineffective. Pt upset, req further intervention. Please advise. Thanks. Response: Discussed w/ neurosurg. To be addressed in AM and PRNs to continue to be administered as able. Anita Lundberg RN --- End of Report --- Plan of Care - Anita Lundberg RN - 02/21/2018 2:26 AM CDT [facility] Plan of Care Note Assessment: [...] and Signs and Symptoms Outcome: Progressing 02/20/18 5326 Pain, Acute Related Risk Factors (Acute Pain) surgery;procedure/treatment;persistent pain;disease process Signs and Symptoms (Acute Pain) alteration in muscle tone;sleep pattern alteration;verbalization of pain descriptors;questions meaning of pain;pacing/restlessness Goal: Acceptable Pain Control/Comfort Level 02/20/18 2356 Pain, Acute (Adult) Acceptable Pain Control/Comfort Level unable to achieve outcome Comments: [facility] Plan of Care Note Assessment: posterior neck pain worst than anterior Plan: IHR, assessment, pain control Subjective: I thought that I was going to be on a dilaudid drip Objective: Pt angry that she was not on a DETAIL SERGEANT pump, Dilaudid PO and IV given q3h, [...] 10:32 AM CDT 2 Patches lidocaine-epinephrine 1 %-1:[id number] injec tion Given 02/20/2018 10:21 AM CDT [...] Alec Gifford, RN)1940 (Given - Provider: Anisha Bcah, RADHA) 0821 (Given - Provider: Marlen Segura, [...] (CANCELED) 0739 (Gi saeid - Provider: Alec Giffrod RN) 150 mg, Oral, BID, First dose [...] HS
documented in this encounter Care Teams Development Executive Relationship Specialty Start Date End Date Jose Holden MD PCP - General Otolaryngology 12/14/[address] [place] [address] documented as of this encounter
--- OUTSIDE RECORDS SUMMARY | 2022-08-01 06:37 | XMS_ITS | Encounter Summary ---
:1965 Author Organization [facility] Address [address] [address] Care Team Providers Name Role Phone Jose Holden MD Primary Care Provider [phone] Reason for Visit Reason Comments Consult, New Patient vocal cord analysis Consult/Transfer Care (Routine) - Closed Specialty Diagnoses / Procedures Referred By Contact Refer red To Contact Diagnoses Pseudarthrosis after fusion or arthrodesis Screening procedure Pete Gonzalez MD [address] [place] [address] Referral ID Status Reason Start Date Expiration Date Visits Requ ested Visits Authorized [id number] Closed 11/29/2017 02/28/2019 1 1 Encounter Details Date Type Department Care Team Description 12/26/2017 Office Visit Specialty Center Jose Holden Cer vical vertebral 401 Otolaryngology MD Deyvi fusion (Primary Dx) [address] [place] [address] [place], [place] [phone] Social History Tobacco Use Types Packs/Day Years [...] (166 lb 12.8 oz) 12/26/2017 2:06 PM MACHINE SETTER SHEET METAL Height - - Body Mass Index 32.58 11/29/2017 10:21 AM MACHINE SETTER SHEET METAL documented in this encounter Progress Notes Jose Holden MD - 12/26/2017 3:00 PM CST HPI: Angie Mosquera is a 52 y.o. old female who presents for vocal cord evaluation prior to cervical spine surgery. Patient has significant history of cervical spine surgery having approximate four procedures, three in [place] one here in the [place] area last year. After her last surgery, developed significant hoarseness, loss of voice for approximately three months. Cervical approach with her last surgery was left-hand side. States that she was evaluated by a electrician helper automotive and there were plans for a procedure [...] times per day. 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 Not currently working. [...] software and may contain unintended word substitutions. 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 [place] [address] documented as of this encounter
--- OUTSIDE RECORDS SUMMARY | 2022-08-01 06:37 | XMS_ITS | Encounter Summary ---
:1965 Author Organization [facility] Address [address] [address] Care Team Providers Name Role Phone Unassigned, Provider Primary Care Provider Unavailable Reason for Visit Procedure/Equipment (Routine) - Incomplete Specialty Diagnoses / Procedures Referred By Contact Refer red To Contact Diagnoses Screening procedure Pseudarthrosis after fusion or arthrodesis Pete Gonzalez MD Procedures XR Cervical Spine W Flex And Ext [address] [place] [address] Referral ID Status Reason Start Date Expiration Date Visits V isits Requested Authorized [id number] Incomplete 10/31/2017 01/30/2019 1 1 Encounter Details Date Type Department Care Team Description 11/29/2017 Imaging [facility] MD Screening procedure [facility] [address] [facility] Radiology [place], [place] [address] [address] [place] [address] [phone] Social History Tobacco Use Types Packs/Day Years [...] dure Results for this FLEX AND EXT HIGH SPEED PRINTER OPERATOR procedure are i n the results section. documented in this encounter Results XR Cervical Spine W Flex And Ext (11/29/2017 9:54 AM HIGH SPEED PRINTER OPERATOR) Anatomical Region Laterality Modality Spine, C-Spine, Neck Computed Radiograph y Specimen (Source) Anatomical Collection Method Collection Time Re ceived Time Location / / Volume Laterality 11/29/2017 9:54 AM HIGH SPEED PRINTER OPERATOR Narrative 11/29/2017 10:59 AM HIGH SPEED PRINTER OPERATOR XR CERVICAL SPINE W FLEX AND EXT [...] condition documented in this encounter Care Teams Roofing Apprentice Relationship Specialty Start Date End Date Unassigned, Provider PCP - General 08/05/03 12/13/[address] [place] [address] documented as of this encounter
--- OUTSIDE RECORDS SUMMARY | 2022-08-01 06:37 | XMS_ITS | Encounter Summary ---
:1965 Author Organization [facility] Address [address], [place] [address] Care Team Providers Name Role Phone Jose Holden MD Primary Care Provider [phone] Encounter Details Date Type Department Care Team Description 12/02/2017 Orders Only External to Pete Gonzalez MD [address] [place], [place] [address] (Wo rk) Social History Tobacco Use Types [...] 12/02/2017 12:00 AM Resul ts for this DYE BOARDING MACHINE OPERATOR procedure are i n the results section. documented in this encounter Results MRI SPINE--SCAN (12/02/2017 12:00 AM DYE BOARDING MACHINE OPERATOR) Anatomical Region Laterality Modality Other Specimen (Source) Anatomical Location Collection Method / Collectio n Time Received Time / Laterality Volume 12/02/2017 Narrative This result has an attachment that is no t available. Pete Gonzalez MD DUMMY/OTHER/AR documented in this encounter Visit Diagnoses Not on filedocumented in this encounter Care Teams Grinder Lap Relationship Specialty Start Date End Date Jose Holden MD PCP - General Otolaryngology 12/14/17 [address] [place], [place] [id number] documented as of this encounter
--- OUTSIDE RECORDS SUMMARY | 2022-08-01 06:37 | XMS_ITS | Encounter Summary ---
:1965 Author Organization [facility] Address [address], [place] [address] Care Team Providers Name Role Phone Jose Holden MD Primary Care Provider [phone] Encounter Details Date Type Department Care Team Description 12/02/2017 Orders Only External to Pete Gonzalez MD [address] [place], [place] [address] (Wo rk) Social History Tobacco Use Types [...] 12/02/2017 12:00 AM Resul ts for this SPRING MANUFACTURING SET UP TECHNICIAN procedure are i n the results section. documented in this encounter Results MRI SPINE--SCAN (12/02/2017 12:00 AM SPRING MANUFACTURING SET UP TECHNICIAN) Anatomical Region Laterality Modality Other Specimen (Source) Anatomical Location Collection Method / Collectio n Time Received Time / Laterality Volume 12/02/2017 Narrative This result has an attachment that is no t available. Pete Gonzalez MD DUMMY/OTHER/AR documented in this encounter Visit Diagnoses Not on filedocumented in this encounter Care Teams Machine Builder Relationship Specialty Start Date End Date Jose Holden MD PCP - General Otolaryngology 12/14/17 [address] [place], [place] [id number] documented as of this encounter
--- OUTSIDE RECORDS SUMMARY | 2022-08-01 06:37 | XMS_ITS | Encounter Summary ---
:1965 Author Organization [facility] Address [address], [place] [address] Care Team Providers Name Role Phone Jose Holden MD Primary Care Provider Encounter Details Date Type Department Care Team Description 12/02/2017 Orders Only External to Pete Gonzalez MD [address] [place], [place] [address] (Wo rk) Social History Tobacco Use Types [...] 12/02/2017 12:00 AM Resul ts for this SCREW MACHINE HAND procedure are i n the results section. documented in this encounter Results MRI SPINE--SCAN (12/02/2017 12:00 AM SCREW MACHINE HAND) Anatomical Region Laterality Modality Other Specimen (Source) Anatomical Location Collection Method / Collectio n Time Received Time / Laterality Volume 12/02/2017 Narrative This result has an attachment that is no t available. Pete Gonzalez MD DUMMY/OTHER/AR documented in this encounter Visit Diagnoses Not on filedocumented in this encounter Care Teams Field Service Tech Relationship Specialty Start Date End Date Jose Holden MD PCP - General Otolaryngology 12/14/17 [address] [place], [place] [id number] documented as of this encounter
--- OUTSIDE RECORDS SUMMARY | 2022-08-01 06:37 | XMS_ITS | Encounter Summary ---
:1965 Author Organization [facility] Address [address] [place] [address] Care Team Providers Name Role Phone Jose Holden MD Primary Care Provider [phone] Encounter Details Date Type Department Care Team Description 02/07/2018 [facility] Chava Simon RN [place] Neurosurgery/ Ortho Spine [address] [place] [address]. [place] [address] Social History Tobacco Use Types [...] her pre-op is scheduled for 02/13/18 at [facility]. Clinic fax # was given. Patient will have clearance note faxed to clinic. Will post pone message to after the to check and see if pre-op has been received yet. Michael Cruz - 02/08/2018 1:37 PM CDT [facility] Michael Cruz 02/08/2018, 1:37 PM Michael Cruz Porfirio - 02/07/2018 11:27 AM CDT [facility] Michael Monroy Anthony 02/07/2018, 11:27 AM Cahva Simon RN - 02/07/2018 10:44 AM CDT [...] filedocumented in this encounter Care Teams Network Systems Administrator Relationship Specialty Start Date End Date Jose Holden MD PCP - General Otolaryngology 12/14/17 [facility] [place] [address] documented as of this encounter
--- OUTSIDE RECORDS SUMMARY | 2022-08-01 06:37 | XMS_ITS | Encounter Summary ---
:1965 Author Organization [facility] Address [address] [address] Care Team Providers Name Role Phone Jose Holden MD Primary Care Provider [phone] Reason for Visit Auth/Cert Specialty Diagnoses / [...] Expiration Date Visits Requ ested Visits Authorized [id number] 1 1 Encounter Details Date Type Department Care Team Description 02/20/2018 [facility] Pete Gonzalez MD [address] [place] [address] [place] [address] [phone] (Wo rk) Social History Tobacco Use Types [...] on filedocumented in this encounter Care Teams Pneumatic Drum Sander Relationship Specialty Start Date End Date Jose Holden MD PCP - General Otolaryngology 12/14/17 [facility] [place] [address] documented as of this encounter
--- OUTSIDE RECORDS SUMMARY | 2022-08-01 06:37 | XMS_ITS | Encounter Summary ---
:1965 Author Organization [facility] Address [address] [place] [address] Care Team Providers Name Role Phone Jose Holden MD Primary Care Provider [phone] Encounter Details Date Type Department Care Team Description 01/20/2018 Telephone [facility] Neuroscience Chava Simon RN Center Neurosurgery/ Ortho Spine [address] [place] [address] Social History Tobacco Use Types Packs/Day [...] placed. Chava Simon RN 01/25/2018, 8:24 AM TY AND HEALTH CONSULTANT Chava Simon RN - 01/24/2018 12:[address] Gonzalez reviewed imaging and is waiting until appropriate time to place case request. Chava Simon RN 01/24/2018, 12:45 PM TY AND HEALTH CONSULTANT Gi De La Vega - 01/20/2018 11:21 AM CST Patient called to speak to RN. She has a new phone number. Please call her at [phone]. thanks TY AND HEALTH CONSULTANT Chava Simon RN - 01/20/2018 11:15 AM CST Images from the original note were not included. Team please have Dr. Gonzalez review imaging which is now on PACs and place case request. Chava Simon RN 01/20/2018, 11:18 AM TY AND HEALTH CONSULTANT documented in this encounter Plan of Treatment Not on filedocumented as of this encounter Visit Diagnoses Not on filedocumented in this encounter Care Teams Diver Helper Relationship Specialty Start Date End Date Jose Holden MD PCP - General Otolaryngology 12/14/[address] [place], [place] [address] [address] documented as of this encounter
--- OUTSIDE RECORDS SUMMARY | 2022-08-01 06:37 | XMS_ITS | Encounter Summary ---
:1965 Author Organization [facility] Address [address] [place] [address] Care Team Providers Name Role Phone Jose Holden MD Primary Care Provider [phone] Reason for Referral (Routine) - Incomplete Specialty [...] (*), IMAGE GUIDANCE ADD ON SPINE (*) [place] [address] Referral ID Status Reason Start Date Expiration Date Visits V isits Requested Authorized [id number] Incomplete 01/25/2018 04/26/2019 1 1 ID CAR MECHANIC Encounter Details Date Type Department Care Team Description 01/25/2018 Prep for [facility] Pete Gonzalez, Cervical s pondylosis with radiculopathy (Primary Dx); Surgery [facility] 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 [address] [place] [address] [phone] Social History Tobacco Use Types Packs/Day Years [...] Cervicalgia documented in this encounter Care Teams Fish Straightener Relationship Specialty Start Date End Date Jose Holden MD PCP - General Otolaryngology 12/14/17 [facility] [place] [address] documented as of this encounter
--- OUTSIDE RECORDS SUMMARY | 2022-08-01 06:37 | XMS_ITS | Encounter Summary ---
:1965 [facility] Address [address] [place] [address] Care Team Providers Name Role Phone Jose Holden MD Primary Care Provider [phone] Encounter Details Date Type Department Care Team [...] filedocumented in this encounter Care Teams Commercial Sales Consultant Relationship Specialty Start Date End Date Jose Holden MD PCP - General Otolaryngology 12/14/17 [place] [address] documented as of this encounter
--- OUTSIDE RECORDS SUMMARY | 2022-08-01 06:37 | XMS_ITS | Encounter Summary ---
:1965 Author Organization [facility] Address [address] [address] Care Team Providers Name Role Phone Jose Holden MD Primary Care Provider [phone] Encounter Details Date Type Department Care Team Description 02/13/2018 Orders Only External to Jose Holden MD [address] [place], [place] [address] (Wo rk) Social History [...] on filedocumented in this encounter Care Teams Project Archivist Relationship Specialty Start Date End Date Jose Holden MD PCP - General Otolaryngology 12/14/17 [address] [place] [address] documented as of this encounter
--- OUTSIDE RECORDS SUMMARY | 2022-08-01 06:37 | XMS_ITS | Encounter Summary ---
:1965 Author Organization [facility] Address [address] [place] [address] Care Team Providers Name Role Phone Jose Holden MD Primary Care Provider [phone] Encounter Details Date Type Department Care Team Description 02/14/2018 [facility] Neuro[facility] Chava Simon, RN [place] Neurosurgery/ Ortho Spine [address] [place] [address] Social History Tobacco Use Types Packs/Day [...] if we have received her preop yet. Title Closer relayed we have not. Patient was given [phone] to have preop be faxed to us. Patient states she already talked to them and they said they already sent it but she will reach out to them again. Will await a return call from patient/watch out for fax. Michael Cruz 02/14/2018, 10:06 AM Chava Simon RN - 02/14/2018 9:11 AM CDT I still have not received patient's preop from [facility]. Could you please call patient and make sure she has had it faxed to us? Chava Simon RN 02/14/2018, 9:11 AM documented in this encounter Plan of Treatment Not on filedocumented as of this encounter Visit Diagnoses Not on filedocumented in this encounter Care Teams Trust Manager Relationship Specialty Start Date End Date Jose Holden MD PCP - General Otolaryngology 12/14/17 [facility] [place] [address] documented as of this encounter
--- OUTSIDE RECORDS SUMMARY | 2022-08-01 06:37 | XMS_ITS | Encounter Summary ---
:1965 Author Organization [facility] Address [address] [place] [address] Care Team Providers Name Role Phone Jose Holden MD Primary Care Provider [phone] Encounter Details Date Type Department Care Team Description 02/07/2018 Prep for Surgery [facility] Sneha Maher, Neuroscience Center Siirsha L, APR N, EDITOR TRADE JOURNAL Neurosurgery/Ortho [address] [place] [address] [place] [address] [phone] Social History Tobacco Use Types Packs/Day Years [...] on filedocumented in this encounter Care Teams Cold Work Operator Relationship Specialty Start Date End Date Jose Holden MD PCP - General Otolaryngology 12/14/[address] [place] [address] documented as of this encounter
--- OUTSIDE RECORDS SUMMARY | 2022-08-01 06:37 | XMS_ITS | Encounter Summary ---
:1965 Author Organization [facility] Address [address] [place] [address] Care Team Providers Name Role Phone Jose Holden MD Primary Care Provider [phone] Encounter Details Date Type Department Care Team Description 02/13/2018 Orders Only External to [facility] External, [place] [address] Social History Tobacco Use Types Packs/Day Years [...] on filedocumented in this encounter Care Teams Cooler Worker Relationship Specialty Start Date End Date Jose Holden MD PCP - General Otolaryngology 12/14/17 [place] [address] documented as of this encounter
--- OUTSIDE RECORDS SUMMARY | 2022-08-01 06:37 | XMS_ITS | Encounter Summary ---
:1965 Author Organization [facility] Address [address] [place] [address] Care Team Providers Name Role Phone Jose Holden MD Primary Care Provider [phone] Reason for Referral Consult/Transfer Care (Routine) - Closed Specialty Diagnoses / Procedures Referred By Contact Refer red To Contact Neurosurgery Diagnoses Pseudarthrosis after fusion or arthrodesis Pete Gonzalez MD [facility] Neurosurgery/Ortho [address] [place] [address] [place] [address] Phone: Fax: Referral ID Status Reason Start Date Expiration Date Visits Requ ested Visits Authorized [id number] Closed 01/17/2018 04/18/2019 1 1 Scheduling Instructions Your provider has recommended an appoint ment for a pre-operative pain consult with [facility]?? You may call [phone] to schedule your appointment.?? If you prefer, a mirela billy will contact you within the next 3 business days to assist you in setting u p this appointment. IPLE TUBE WINDING MACHINE OPERATOR Reason for Visit Reason Comments Revisit Encounter Details Date Type Department Care Team Description 01/17/2018 Office Visit [facility], Pseudarthr osis after [facility] MD fusion or arthrodesis Neurosurgery/Ortho [address] [place] (Primar y Dx) [address] [place] [address] [place] [address] [phone] Social History Tobacco Use Types Packs/Day Years [...] Comments Blood Pressure 137/83 01/17/2018 11:51 AM MULTIPLE TUBE WINDING MACHINE OPERATOR Pulse 83 01/17/2018 11:51 AM MULTIPLE TUBE WINDING MACHINE OPERATOR Temperature 36.5 ??C (97.7 ??F) 01/17/2018 11:51 AM MULTIPLE TUBE WINDING MACHINE OPERATOR Respiratory Rate 16 01/17/2018 11:51 AM MULTIPLE TUBE WINDING MACHINE OPERATOR Oxygen Saturation - - Inhaled Oxygen [...] business days) Please call Ana Rosa at [phone] if you have not heard from her. [...] prior to surgery. Please fax preops to [phone] Nothing to eat or drink from midnight [...] and Apply plenty of Hibiclens*, a special yarn cleaner, to a clean, wet washcloth. Wash [...] 8am-5pm, please call the Neurosurgery Clinic at [phone] if youhave any concerns related to your surgery before going to the Emergency Room, your family physician,or an Urgent Care. After hours call the [facility] at [phone]. PAIN MEDICATION POLICY The Department of Neurosurgery [...] duringweekend hours. Day of surgery, arrive at [facility] on 3rd floor 2 hours prior to surgery. The Same Day Surgery Nurses will call you 1-3 days prior to surgery to inform you what time you should arrive for your surgery. If they do not reach you, please call if your surgery is at [facility]. Review your surgery packet. Contact the Neurosurgery Center [phone] if you have any questions or concerns IPLE TUBE WINDING MACHINE OPERATOR documented in this encounter Progress Notes [...] is prone to typos and grammatical errors. IPLE TUBE WINDING MACHINE OPERATOR documented in this encounter Plan of Treatment Scheduled Referrals Name Type Priority Associated Diagnoses Order S chedule PRE-OP PAIN CONSULT Referral Routine Pseudarthrosis after fusion Ordered: 01/17/2018 - ADULT or arthrodesis documented as of this encounter Procedures Procedure Name Priority Date/Time Associated Diagnosis Comme nts MRSA/MSSA PRE-OP Routine 01/17/2018 1:48 PM Pseudarthrosis aft er Results for this CULTURE MULTIPLE TUBE WINDING MACHINE OPERATOR fusion or arthrodesis proced ure are in the results section. documented in this encounter Results MRSA/MSSA Pre-Op Culture (01/17/2018 1:48 PM MULTIPLE TUBE WINDING MACHINE OPERATOR) Component Value Ref Test Analysis Performed At [facility] Range Method Time Signature Specimen Nose Swab [facility] Description LABORATORIES Special Unspecified [facility] Requests LABORATORIES Culture No Staphylococcus [facility] aureus Isolated LABORATORIES Report Status 01/18/2018 [facility] Final LABORATORIES Specimen Anatomical Collection Method Collection Time Receive d Time (Source) Location / / Volume Laterality Nasal swab taken NASAL STRUCTURE / 01/17/2018 1:48 PM 01/17/2018 1:49 (situation) Unknown MULTIPLE TUBE WINDING MACHINE OPERATOR PM MULTIPLE TUBE WINDING MACHINE OPERATOR Pete Gonzalez MD LAB_1 Performing Organization Address City/State/ZIP Code Phon e Number [facility] [phone] documented in this encounter Visit Diagnoses Diagnosis Pseudarthrosis after fusion or arthrodes is - Primary Arthrodesis status documented in this encounter Care Teams Warehouse Team Leader Relationship Specialty Start Date End Date Jose Holden MD PCP - General Otolaryngology 12/14/17 [address] [place] [address] documented as of this encounter
--- OUTSIDE RECORDS SUMMARY | 2022-08-01 06:37 | XMS_ITS | Encounter Summary ---
:1965 Author Organization Formerly [facility] Address [address] [place] [address] Care Team Providers Name Role Phone Jose Holden MD Primary Care Provider [phone] Reason for Visit Procedure/Equipment (Routine) - Incomplete Specialty Diagnoses / Procedures Referred By Contact Refer red To Contact Diagnoses Screening procedure Pseudarthrosis after fusion or arthrodesis Pete Gonzalez MD Procedures FL Video Swallow Study [address] [place] [address] Referral ID Status Reason Start Date Expiration Date Visits V isits Requested Authorized [id number] Incomplete 11/29/2017 02/28/2019 1 1 Encounter Details Date Type Department Care Team Description 12/26/2017 Imaging [facility] MD Screening procedure; [facility] [address] [place], [place] [address]E Ps eudarthrosis after fusion or arthrodesis Radiology Fluoro S [address] [place] [address] [place] [address] [phone] (Wo rk) Social History Tobacco Use Types [...] Screening pr ocedure Results for this STUDY HEAD USHER Pseudarthrosis after procedu re are in fusion or the results arthrodesis section. documented in this encounter Results FL Video Swallow Study (12/26/2017 1:03 PM HEAD USHER) Anatomical Region Laterality Modality Neck, Chest Radio Fluoroscopy Specimen (Source) Anatomical Collection Method Collection Time Re ceived Time Location / / Volume Laterality 12/26/2017 1:03 PM HEAD USHER Narrative 12/26/2017 6:00 PM HEAD USHER FL VIDEO SWALLOW STUDY 12/26/2017 1:03 PM [...] for additional details. Pete Gonzalez MD RAD DC documented in this encounter Visit Diagnoses Diagnosis Screening procedure Screening for unspecified condition Pseudarthrosis after fusion or arthrodes is Arthrodesis status documented in this encounter Administered Medications Inactive Administered Medications - up to 3 most recent administrations Medication Order MAR Action Action Date Dose Rate Site barium sulfate (EZ PAQUE) Given 12/26/2017 1:06 PM HEAD USHER 200 mL suspension 200 mL 200 mL, Oral, ONCE (NON-SCHEDULED), Starting on Tue12/26/17 at 1305, For 1 dose barium sulfate (EZ-DISK) tablet 700 mg Given 12/26/2017 1:06 PM HEAD USHER 700 mg 700 mg, Oral, ONCE (NON-SCHEDULED), Starting on Tue12/26/17 at 1305, Until Tue12/26/17 at 1306, For 1 dose barium sulfate (EZ-PASTE) oral cream 9 g Given 12/26/2017 1:06 PM HEAD USHER 9 g 9 g (15 mL), Oral, ONCE (NON-SCHEDULED), Starting on Tue12/26/17 at 1305, For 1 dose barium sulfate (VARIBAR, TAGITOL V) 40 % Given 12/26/2017 1:06 P M HEAD USHER 240 mL suspension 240 mL 240 mL, Oral, ONCE (NON-SCHEDULED), Starting on Tue12/26/17 at 1305, Until Tue02/20/18 at 1710, For 3 doses documented in this encounter Care Teams Applications Packager Relationship Specialty Start Date End Date Jose Holden MD PCP - General Otolaryngology 12/14/17 Formerly named [facility] [place] [address] documented as of this encounter
--- OUTSIDE RECORDS SUMMARY | 2022-08-01 06:37 | XMS_ITS | Encounter Summary ---
:1965 Author [facility] Address [address] [place] [address] Care Team Providers Name Role Phone Jose Holden MD Primary Care Provider [phone] Encounter Details Date Type Department Care Team Description 01/17/2018 Telephone [facility] Chava Simon RN Center Neurosurgery/ [facility]o Spine [address] [facility] [place] [address] Social History Tobacco Use Types [...] in. Chava Simon RN 01/17/2018, 1:26 PM ER OPERATOR documented in this encounter Plan of Treatment Not on filedocumented as of this encounter Visit Diagnoses Not on filedocumented in this encounter Care Teams Equip Tech Relationship Specialty Start Date End Date Jose Holden MD PCP - General Otolaryngology 12/14/17 [address] [place] [address] documented as of this encounter
--- OUTSIDE RECORDS SUMMARY | 2022-08-01 06:37 | XMS_ITS | Encounter Summary ---
:1965 Author [facility] Address [address], [place] [address] Care Team Providers Name Role Phone Jose Holden MD Primary Care Provider [phone] Reason for Visit Auth/Cert Specialty Diagnoses / [...] Expiration Date Visits Requ ested Visits Authorized [id number] 1 1 Encounter Details Date Type Department Care Team Description 02/21/2018 [facility] Pete Gonzalez MD [address] [place] [address] [place] [address] [phone] (Wo rk) Social History Tobacco Use Types [...] on filedocumented in this encounter Care Teams Wildlife Ecology Professor Relationship Specialty Start Date End Date Jose Holden MD PCP - General Otolaryngology 12/14/[address] [place] [address] documented as of this encounter
--- OUTSIDE RECORDS SUMMARY | 2022-08-01 06:37 | XMS_ITS | Encounter Summary ---
:1965 Author Organization [facility] Address [address], [place] [address] Care Team Providers Name Role Phone Jose Holden MD Primary Care Provider [phone] Reason for Visit Reason Comments QUESTIONS, GENERAL Encounter Details Date Type Department Care Team Description 01/19/2018 Telephone [facility] Pete Gonzalez MD QUESTIONS, GENERAL Neuroscience [facility] [address] [facility] Neurosurgery/Ortho S [place], [place] [address] [address] [place] [address] [phone] Social History Tobacco Use Types Packs/Day Years [...] of MRI was received via mail from [facility]. CD given to RN DESIGN CHECKER Chava Simon RN - 01/19/2018 12:00 PM CST Patient states she will bring the MRI CD hopefully tomorrow 01/20/2018. Chava Simon RN 01/19/2018, 12:01 PM DESIGN CHECKER Gi De La Vega - 01/19/2018 11:47 AM CST Patient calling to speak to RN. Would like to speak to him regarding an MRI CD? Please call her at [phone]. DESIGN CHECKER documented in this encounter Plan of Treatment Not on filedocumented as of this encounter Visit Diagnoses Not on filedocumented in this encounter Care Teams Stockroom Supervisor Relationship Specialty Start Date End Date Jose Holden MD PCP - General Otolaryngology 12/14/17 [facility] [place] [address] documented as of this encounter
--- OUTSIDE RECORDS SUMMARY | 2022-08-01 06:37 | XMS_ITS | Encounter Summary ---
:1965 [facility] Address [address] [place] [address] Care Team Providers Name Role Phone Jose Holden MD Primary Care Provider [phone] Encounter Details Date Type Department Care Team Description 02/13/2018 Orders Only External to [facility] External, [place] [address] Social History Tobacco Use Types Packs/Day Years [...] on filedocumented in this encounter Care Teams Orchid Transplanter Relationship Specialty Start Date End Date Jose Holden MD PCP - General Otolaryngology 12/14/17 [place] [address] documented as of this encounter
--- OUTSIDE RECORDS SUMMARY | 2022-08-01 06:37 | XMS_ITS | Encounter Summary ---
:1965 Author Organization [facility]ly [facility] Address [address] [place] [address] Care Team Providers Name Role Phone Jose Holden MD Primary Care Provider [phone] Reason for Visit Reason Comments CONSULT POPC-dos 02-20 w/Dr Gonzalez Encounter Details Date Type Department Care Team Description 02/13/2018 Office Visit Stew Mcghee of Neuroscience [facility] Raul Stover MD cervical region Management [address] without myelopathy or [address] [place], [place] radiculopathy ([place] [address] Dx) [phone] Social History Tobacco Use Types Packs/Day Years [...] some medicines that are opioids: ??? Hydrocodone ([place], Vicodin, Lortab) ??? Oxycodone (OxyContin, Percocet) ??? [...] before you use any other medicines, including yksq-afx-fnoxvac medicines. Make sure my care team knows [...] team or apharmacist. You can also visit D[employer] or Lyft and search medicine disposalto learn about drug disposal. You may also call the Drug Enforcement Administration (BARBY) Office of Diversion Control's Registration Call Center at to find an authorized radio sales account executive in your community. ??? If your dose [...] Content Version: 10.9 Custom: HP/PN 6-16 ?? [id number] [email or web address], [facility]. Stew Covarrubias MD documented in [...] experiences A lot of 'bad' surgeries in [place] Past Medical History: Diagnosis Date ??? Acne ??? Allergy ??? Anxiety disorder (HRC) ??? Arthritis ??? Asthma (HRC) ??? Bipolar 1 disorder (HRC) ??? COPD (chronic obstructive pulmonary disease) (HRC) ??? Depression (HRC) ??? Ear infection ??? Infection of the inner ear, left ? ? Nausea & vomiting ??? Sinusitis No past surgical history on file. POWDER ROOM ATTENDANT Review: Allergies: Allergies Allergen Reactions ??? Adhesive [...] surgery Recommendations for opioids: If using a GEOPHYSICAL PROSPECTOR: No oral opioids Start a GEOPHYSICAL PROSPECTOR pump with Dilaudid continuous IV infusion at a basal rate of 0.1 mg/hr with GEOPHYSICAL PROSPECTOR boluses of 0.2-0.4 mg every 10 minutes. If not using a GEOPHYSICAL PROSPECTOR: Start dilaudid 2-4mg q3h prn (alternatively can [...] myelopathy documented in this encounter Care Teams Cloth Wire Weaver Relationship Specialty Start Date End Date Jose Holden MD PCP - General Otolaryngology 12/14/17 [facility] [place] [address] documented as of this encounter
--- OUTSIDE RECORDS SUMMARY | 2022-08-01 06:37 | XMS_ITS | Encounter Summary ---
:1965 Author Organization [facility] Address [address], [place] [address] Care Team Providers Name Role Phone Jose Holden MD Primary Care Provider [phone] Reason for Visit Therapies (Routine) - Closed Specialty Diagnoses / Procedures Referred By Contact Refer red To Contact Diagnoses Pseudarthrosis after fusion or arthrodesis Screening procedure Pete Gonzalez MD [address] [place] [address] Referral ID Status Reason Start Date Expiration Date Visits Requ ested Visits Authorized [id number] Closed 11/29/2017 01/28/2018 1 1 Encounter Details Date Type Department Care Team Description 12/26/2017 Office Visit Pete Orona MD [address] [place] [address] Pharyngeal dysphagia Neuro[facility] Kaykay Wyman SCHOOL PSYCHOLOGY SPECIALIST [address] [place], [place] [id number] (Primary Dx) Speech Therapy [address] [place] [address]. [id number] [id number] Social History Tobacco Use Types Packs/Day Years Used Date Smoking Tobacco: Every Day Cigarettes 0.5 Smokeless Tobacco: Never Alcohol Use Standard Drinks/Week Comments No 0 (1 standard drink = 0.6 oz pure alcoho l) Sex Assigned at Date Recorded Not on file documented as of this encounter Patient Instructions Patient InstructionsKaykay Wyman SLP - 12/26/2017 12:30 PM SUPERVISOR ORE DRESSING You had a swallow test today. I [...] sensation of food catching. Kaykay Monroy MA CCC/SCHOOL PSYCHOLOGY SPECIALIST Speech-Language Pathologist M-F Office: [phone] [employer] documented in this encounter Progress Notes Kaykay Wyman, SCHOOL PSYCHOLOGY SPECIALIST - 12/26/2017 12:30 PM CST SPEECH LANGUAGE PATHOLOGY MODIFIED BARIUM SWALLOW INITIAL EVALUATION ASSESSMENT Patient is referred for dysphagia evaluation as part of surgical consultation related to past ACDF 1year ago in [place] with consideration of revision ACDF surgery in [...] food sticking, especially on textures that are glue drier operator (meats, breads, etc). I would anticipate that [...] goals established as no further intervention from SCHOOL PSYCHOLOGY SPECIALIST service is warranted at this time. VISIT [...] Total Treatment Time: 45 minutes Kaykay Monroy CCC-SCHOOL PSYCHOLOGY SPECIALIST 12/26/2017 documented in this encounter Plan of Treatment Scheduled Referrals Name Type Priority Associated Diagnoses Order S chedule Speech Therapy Referral Routine Pseudarthrosis after fusio n or Ordered: 11/29/2017 arthrodesis Screening procedure documented as of this encounter Visit Diagnoses Diagnosis Pharyngeal dysphagia - Primary Dysphagia, pharyngeal phase documented in this encounter Care Teams Flange Machine Operator Relationship Specialty Start Date End Date Jose Holden MD PCP - General Otolaryngology 12/14/17 [place] [address] documented as of this encounter
--- OUTSIDE RECORDS SUMMARY | 2022-08-01 06:37 | XMS_ITS | Encounter Summary ---
:1965 Author Organization [facility] Address [address] [place] [address] Care Team Providers Name Role Phone Jose Holden MD Primary Care Provider Reason for Visit Reason Comments Other Encounter Details Date Type Department Care Team Description 01/17/2018 [facility] Chava Simon RN Other Center Neurosurgery/ Ortho Spine [address] [place] [address]. [place] [address] Social History Tobacco Use Types [...] AM CST XR printed for patient to steel pickler when she comes to clinic. Chava Simon RN 01/18/2018, 8:42 AM ING WHEEL INSPECTOR Michael Cruz - 01/17/2018 3:46 PM CST Patient called in stating she will drop off her CD in clinic tomorrow. However she wants to make sure RADHA Bowie also has a copy of her neck pictures ready for her as well. Patient states she had alreadyspoken to RADHA Bowie about this. Please advise Michael Cruz 01/17/2018, 3:47 PM ING WHEEL INSPECTOR documented in this encounter Plan of Treatment Not on filedocumented as of this encounter Visit Diagnoses Not on filedocumented in this encounter Care Teams Side Sawyer Relationship Specialty Start Date End Date Jose Holden MD PCP - General Otolaryngology 12/14/17 [facility] [place] [address] documented as of this encounter
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
--- OUTSIDE RECORDS SUMMARY | 2022-08-01 06:37 | XMS_ITS | Encounter Summary ---
:1965 Author Organization [facility] Address [address], [place] [address] Care Team Providers Name Role Phone Jose Holden MD Primary Care Provider [phone] Encounter Details Date Type Department Care Team [...] on filedocumented in this encounter Care Teams Hvac Technician Residential Relationship Specialty Start Date End Date Jose Holden MD PCP - General Otolaryngology 12/14/17 [place] [address] documented as of this encounter
--- OUTSIDE RECORDS SUMMARY | 2022-08-01 06:37 | XMS_ITS | Encounter Summary ---
:1965 Author [facility] Address [address], [place] [address] Care Team Providers Name Role Phone Jose Holden MD Primary Care Provider [phone] Reason for Visit Auth/Cert Specialty Diagnoses / [...] Expiration Date Visits Requ ested Visits Authorized [id number] 1 1 Encounter Details Date Type Department Care Team Description 02/20/2018 [facility] Pete Gonzalez MD [address] [place] [address] [place] [address] [phone] (Wo rk) Social History Tobacco Use Types [...] 12:36 PM CDT Fluoroscopy provided by a registered radiologic technologist. Exact fluoroscopy time is documented in end of exam information in EPIC Pete Gonzalez MD RAD GD documented in this encounter Visit Diagnoses Not on filedocumented in this encounter Care Teams Children'S Service Worker Relationship Specialty Start Date End Date Jose Holden MD PCP - General Otolaryngology 12/14/[address] [place] [address] documented as of this encounter
--- OUTSIDE RECORDS SUMMARY | 2022-08-01 06:37 | XMS_ITS | Encounter Summary ---
:1965 Author [facility] Address [address] [address] Care Team Providers Name Role Phone Jose Holden MD Primary Care Provider [phone] Reason for Visit Auth/Cert Specialty Diagnoses / [...] Expiration Date Visits Requ ested Visits Authorized [id number] 1 1 Encounter Details Date Type Department Care Team Description 02/20/2018 [facility] Pete Gonzalez MD [address] [place] [address] [place] [address] [phone] (Wo rk) Social History Tobacco Use Types [...] on filedocumented in this encounter Care Teams Animal Shelter Supervisor Relationship Specialty Start Date End Date Jose Holden MD PCP - General Otolaryngology 12/14/[address] [place] [phone] (work) documented as of this encounter
--- OUTSIDE RECORDS SUMMARY | 2022-08-01 06:37 | XMS_ITS | Encounter Summary ---
:1965 Author Organization [facility] Address [address] [address] Care Team Providers Name Role Phone Jose Holden MD Primary Care Provider [phone] Reason for Visit Reason Comments QUESTIONS, GENERAL Encounter Details Date Type Department Care Team Description 02/03/2018 Telephone [facility] Pete Gonzalez MD QUESTIONS, GENERAL Neuro[facility] [address] [facility] Neurosurgery/Ortho S [place], [place] [address] [address] [place] [address] [phone] Social History Tobacco Use Types Packs/Day Years [...] PA. Chava Simon RN 02/03/2018, 12:01 PM TENANCE JOURNEYMAN Gi De La Vega - 02/03/2018 11:55 AM CST Patient calling to speak to Jamir. Would like to know about her surgery. Security Architect did let patient know that Ana Rosa shop mechanic helper is out of the office. She did request to speak to Jamir. Please call her at listed number. Thanks TENANCE JOURNEYMAN documented in this encounter Plan of Treatment Not on filedocumented as of this encounter Visit Diagnoses Not on filedocumented in this encounter Care Teams Ship Engineer Relationship Specialty Start Date End Date Jose Holden MD PCP - General Otolaryngology 12/14/[address] [place], [place] [address] [address] documented as of this encounter
--- OUTSIDE RECORDS SUMMARY | 2022-08-01 06:37 | XMS_ITS | Encounter Summary ---
:1965 Author Organization [facility] Address [address], [place] [address] Care Team Providers Name Role Phone Jose Holden MD Primary Care Provider [phone] Reason for Visit Reason Comments QUESTIONS, GENERAL Encounter Details Date Type Department Care Team Description 01/25/2018 Telephone [facility] Pete Gonzalez MD QUESTIONS, GENERAL [facility] [address] [facility] Neurosurgery/Ortho [place], [place] [address] [address] [place] [address] [phone] Social History Tobacco Use Types Packs/Day Years [...] she should receive a call from the planner/scheduler in the next 1-3 weeks to discuss her surgery/date. Patient stated understanding and will call with any updates or changes. Chava Simon RN 01/25/2018, 11:04 AM CARE ASSISTANT Gi De La Vega 01/25/2018 10:56 AM CST Patient calling to speak to RN. Regarding her MRI scan. CARE ASSISTANT documented in this encounter Plan of Treatment Not on filedocumented as of this encounter Visit Diagnoses Not on filedocumented in this encounter Care Teams Ceramics Machine Operator Relationship Specialty Start Date End Date Jose Holden MD PCP - General Otolaryngology 12/14/[address] [place] [address] documented as of this encounter
--- OUTSIDE RECORDS SUMMARY | 2022-08-01 06:38 | XMS_ITS | Encounter Summary ---
:1965 Author Organization [facility] Address [address] [place] [address] Care Team Providers Name Role Phone Elsewhere, Pcp Primary Care Provider Unavailable Reason for Visit Reason Onset Date Comments Left Without Being Seen 07/22/2022 Physical Therapy (Routine) - Authorized Specialty Diagnoses / Procedures Referred By Contact Refer red To Contact Diagnoses Aftercare Total Shoulder Arthroplasty Flavia Broderick M.D. [facility] Procedures PT or OT eval and treat (first available) Referral ID Status Reason Start Date Expiration Date Visits V isits Requested Authorized [id number] Authorized 06/23/2022 06/23/2023 99 99 Encounter Details Date Type Department Care Team Description 06/29/2022 Comprehensive Visit Department of Physical Juauqin Broderick M.D. Procedure And Treatment Not Carried Out Due To Patient Leaving Prior To Being Seen By Health Care Provider (Primary Dx); Medicine and Jessie Faye M.S., O.T. [address] [place] [phone] Aftercare Total Shoulder Arthroplasty Rehabilitation in [place], [place] [address] [place] [address] Social History Tobacco Use Types Packs/Day Years [...] you attend mandaeism or Patient refused 2021 jew services? Do you belong to any clubs or No 05/17/2022 organizations such as mandaeism groups, unions, fraAMDL or athletic groups, or school groups? How [...] documented as of this encounter Progress Notes Marla Varghese C.H.T., O.T. - 06/29/2022 10:00 AM CDT Patient prescheduled ahead of follow up with X-ray and Dr. Polk. Patient arrived at [place] [address] des and was rescheduled. documented in this encounter Plan of Treatment Not on filedocumented as of this encounter Visit Diagnoses Diagnosis Procedure And Treatment Not Carried Out Due To Patient Leaving Prior To Being Seen By Health Care Provider - Primary Aftercare Total Shoulder Arthroplasty documented in this encounter Additional Health Concerns Assessment Noted Time PHQ-9 Depression Total Score: 16 02/11/2021 12:00 AM C DT documented as of this encounter Care Teams Reliability Engineer Relationship Specialty Start Date End Date Elsewhere, Pcp PCP - General Family Medicine 12/25/21 documented as of this encounter
--- OUTSIDE RECORDS SUMMARY | 2022-08-01 06:38 | XMS_ITS | Encounter Summary ---
:1965 Author Organization [facility] Address [address] [place] [address] Care Team Providers Name Role Phone Unassigned, Provider Primary Care Provider Unavailable Encounter Details Date Type Department Care Team Description 10/28/2005 [facility] Curtis Antoine Op Report-Archive [address]Britton García [place] [address] [facility] [phone] [place] [address] Social History Tobacco Use Types Packs/Day Years Used Date Smoking Tobacco: Never Assessed Sex Assigned at Date Recorded Not on file documented as of this encounter Plan of Treatment Not on filedocumented as of this encounter Visit Diagnoses Not on filedocumented in this encounter Care Teams Injection Moulding Machine Operator Relationship Specialty Start Date End Date Unassigned, Provider PCP - General 08/05/03 12/13/17 [address] [place] [address] documented as of this encounter
--- OUTSIDE RECORDS SUMMARY | 2022-08-01 06:38 | XMS_ITS | Encounter Summary ---
:1965 Author Organization [facility] Address [address] [place] [address] Care Team Providers Name Role Phone Elsewhere, Pcp Primary Care Provider Unavailable Reason for Visit Reason Comments Medication Question Encounter Details Date Type Department Care Team Description 06/21/2022 Clinical Communication RST ANDREW Pollard, Medication Question [address] [facility] Lilian Hughes [place], [place] 200 [facility] [address] [place] [address] Social History Tobacco Use Types Packs/Day Years [...] you attend yazdanism or Patient refused 2021 rastafari services? Do you belong to any clubs [...] this encounter Miscellaneous Notes Telephone Encounter - Hoda Benito M.D. - 06/24/2022 1:12 PM CDT Prescriptions are sent to [facility] Telephone Encounter - Brenda Wright - 06/23/2022 3:02 PM CDT The patient called again re: her pregabalin prescription. She did not pick it up at the hospital pharmacy since she did not know it was there. Her regular pharmacy is [facility] in [place]. A newprescription needs to be sent to [facility] in [place]. The patient is out of this medication. Please call the patient if any questions: . She has been calling and has not heard from anyone re: this. 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 Brenda Jefferson [phone] documented in this encounter Plan of Treatment Not on filedocumented as of this encounter Visit Diagnoses Not on filedocumented in this encounter Additional Health Concerns Assessment Noted Time PHQ-9 Depression Total Score: 16 02/11/2021 12:00 AM C DT documented as of this encounter Care Teams Medical Sales Specialist Relationship Specialty Start Date End Date Elsewhere, Pcp PCP - General Family Medicine 12/25/21 documented as of this encounter
--- OUTSIDE RECORDS SUMMARY | 2022-08-01 06:38 | XMS_ITS | Encounter Summary ---
:1965 Author Organization formerly [facility] Address [address] [place] [address] Care Team Providers Name Role Phone Unassigned, Provider Primary Care Provider Unavailable Encounter Details Date Type Department Care Team Description 12/13/2006 [facility] Curtis Antoine Op Report-Archive [address] StreetBritton García [place] [address] [facility] [phone] [place] [address] Social History Tobacco Use Types Packs/Day Years Used Date Smoking Tobacco: Never Assessed Sex Assigned at Date Recorded Not on file documented as of this encounter Plan of Treatment Not on filedocumented as of this encounter Visit Diagnoses Not on filedocumented in this encounter Care Teams Motor Runner Relationship Specialty Start Date End Date Unassigned, Provider PCP - General 08/05/03 12/13/17 [address] [place] [address] documented as of this encounter
--- OUTSIDE RECORDS SUMMARY | 2022-08-01 06:38 | XMS_ITS | Encounter Summary ---
:1965 Author Organization [facility] Address [address] [place] [address] Care Team Providers Name Role Phone Elsewhere, Pcp Primary Care Provider Unavailable Reason for Visit Reason Comments Med Refill Encounter Details Date Type Department Care Team Description 07/19/2022 Refill Division of [facility] Internal H Hoda parmar M.D. Med Refill Medicine, [facility], [place] [address] [place] [address] [place], [place] [address] [phone] Social History Tobacco Use Types Packs/Day Years [...] you attend rastafari or Patient refused 2021 holiness services? Do [...] this encounter Miscellaneous Notes Telephone Encounter - Katelynn Mercado - 07/22/2022 5:00 AM CDT NO PCP documented in this encounter Plan of Treatment Not on filedocumented as of this encounter Visit Diagnoses Not on filedocumented in this encounter Additional Health Concerns Assessment Noted Time PHQ-9 Depression Total Score: 16 02/11/2021 12:00 AM C DT documented as of this encounter Care Teams Wait Staff Relationship Specialty Start Date End Date Elsewhere, Pcp PCP - General Family Medicine 12/25/21 documented as of this encounter
--- OUTSIDE RECORDS SUMMARY | 2022-08-01 06:38 | XMS_ITS | Encounter Summary ---
:1965 Author Organization [facility] Address [address] [place] [address] Care Team Providers Name Role Phone Unassigned, Provider Primary Care Provider Unavailable Encounter Details Date Type Department Care Team Description 01/17/2006 [facility] Curtis Antoine Op Report-Archive [address] StreetBritton García [place] [address] [facility] [phone] [place] [address] Social History Tobacco Use Types Packs/Day Years Used Date Smoking Tobacco: Never Assessed Sex Assigned at Date Recorded Not on file documented as of this encounter Plan of Treatment Not on filedocumented as of this encounter Visit Diagnoses Not on filedocumented in this encounter Care Teams Starch Mangle Tender Relationship Specialty Start Date End Date Unassigned, Provider PCP - General 08/05/03 12/13/17 [address] [place] [address] documented as of this encounter
--- OUTSIDE RECORDS SUMMARY | 2022-08-01 06:38 | XMS_ITS | Encounter Summary ---
:1965 Author Organization [facility] Address [address] [place] [address] Care Team Providers Name Role Phone Elsewhere, Pcp Primary Care Provider Unavailable Reason for Visit Appointment Request (Routine) - Closed Specialty Diagnoses / Procedures Referred By Contact Refer red To Contact Orthopedic Surgery Diagnoses Aftercare Total Shoulder Arthroplasty Referral ID Status Reason Start Date Expiration Date Visits Requ ested Visits Authorized [id number] Closed 06/23/2022 06/23/2023 1 1 Encounter Details Date Type Department Care Team Description 06/29/2022 Office Visit Department of Cyrus Polk Left Orthopedic Surgery in [place] (Primary Dx) [place], [place] [address] [place] [address] 200 [place] [address] [phone] Social History Tobacco Use Types Packs/Day Years [...] attend jehovah's witness or Patient refused 2021 roman catholic services? [...] encounter Progress Notes Cyrus Polk M.D. - 06/29/2022 8:30 AM CDT CHIEF COMPLAINT/PURPOSE OF VISIT Angie Mosquera is a pleasant 57 y.o. female who returns today status post shoulder arthroplasty. Patient notes marked improvement in their pain. PHYSICAL EXAMINATION General: Patient is in no acute distress. Shoulder ROM: Active elevation is 90 Passive elevation is 100 External rotation to 20 Internal rotation to Iliac crest Strength: Flexion 5 Abduction 4 External rotation 4 Internal rotation 4 Motion is smooth and stable. Incision is well-healing. Deltoid grossly intact. IMPRESSION/REPORT/PLAN IMAGING STUDIES Radiographs demonstrate a well-aligned shoulder arthroplasty. IMPRESSION/REPORT/PLAN #1 Status post Left shoulder arthroplasty, doing well At this point I reviewed in detail postoperative rehabilitation and restrictions. Restrictions are no lifting, pushing, pulling with a force greater than 5 to 10 pounds with the operative upper extremity, no repetitive overhead activity for the first six months from surgery. At six months may then increase by 10 pounds every six weeks with a lifetime limit of 25 pounds with the operative upper extremity. Patient is dismissed to follow up through the [facility], Department of Orthopedic Surgery Total Joint Registry. All questions answered. DIAGNOSES #1 Status post shoulder arthroplasty documented in this encounter Plan of Treatment Not on filedocumented as of this encounter Visit Diagnoses Diagnosis Pain Shoulder Left - Primary documented in this encounter Additional Health Concerns Assessment Noted Time PHQ-9 Depression Total Score: 16 02/11/2021 12:00 AM C DT documented as of this encounter Care Teams Arbitrator Relationship Specialty Start Date End Date Elsewhere, Pcp PCP - General Family Medicine 12/25/21 documented as of this encounter
--- OUTSIDE RECORDS SUMMARY | 2022-08-01 06:38 | XMS_ITS | Clinical Summary ---
:1965 Author Organization [facility] Address [address] [place] [address] Care Team Providers Name Role Phone Elsewhere, Pcp Primary Care Provider Unavailable Source Comments Patient records contain information from all sites at [facility]. For routine questions regarding patient records, call [phone] during business hours, M-F 8:00 AM - 5:00 PM Central Time. Record requests for emergency care only can be directed to [phone] at any time.[facility] Allergies Active Allergy Reactions Severity Noted Date [...] 10/13/2017 Other lashaun ction(s): (see comments) Contact [place] titis Gabapentin Other (see comments) Low 05/12/2017 [...] upset Medications Medication Sig Dispensed Refills Start Date End Date Status cetirizine (ZyrTEC) Take 10 mg by mouth 0 Active 10 mg tablet daily. FLUoxetine (PROzac) Take 80 mg by mouth 0 Active 40 mg capsule every morning. lamoTRIgine Take 200 mg by mouth 3 02/08/2019 Active (LaMICtal) 200 mg 2 (two) times a day. tablet MAG-G 27 mg Take 1 tablet by 3 02/16/2019 Active magnesium (500 mg) mouth at bedtime. tablet polyethylene glycol Take 17 g by mouth 0 04/11/2017 Active (MIRALAX) 17 as needed for gram/dose oral constipation. powder valACYclovir Take 500 mg by mouth 0 02/22/2018 Active (VALTREX) 500 mg daily. tablet zonisamide Take 300 mg by mouth 8 02/22/2019 Active (ZONEGRAN) 100 mg 2 (two) times a day. capsule albuterol (PROVENTIL Inhale 2 puffs every 0 Active HFA,VENTOLIN HFA) 90 6 (six) hours as mcg/actuation needed for wheezing inhaler or shortness of breath. benzonatate Take 100 mg by mouth 6 03/19/2019 Active (TESSALON PERLES) 3 (three) times a 100 mg capsule day as needed for cough. tiZANidine Take 4-8 mg by mouth 1 03/27/2019 Active (ZANAFLEX) 4 mg every 8 (eight) tablet hours as needed for muscle spasms. Muscle spasms ipratropium-albutero Inhale 3 mL by 0 01/16/2021 Active L (DUONEB) 0.5-2.5 nebulization 4 mg/3 mL nebulizer (four) times a day solution as needed for shortness of breath or wheezing. meclizine (ANTIVERT) Take 25 mg by mouth 0 Active 25 mg tablet every 6 (six) hours as needed for dizziness. buPROPion XL Take 150 mg by mouth 0 02/04/2021 Active (WELLBUTRIN XL) 150 every morning. mg 24 hr tablet atorvastatin Take 1 tablet (80 mg 90 tablet 3 02/17/2021 Active (LIPITOR) 80 mg total) by mouth at tablet bedtime. Additional Information Patient taking differently: 80 mg oral Daily, Other, Reported on 06/21/2022 uxcmgawyoc-xudcgzfmfpmji-dzdh Take 1 tablet by 0 12/2020 Active (ESGIC) 50-325-40 mg per tablet mouth every 6 (six) hours as needed for migraine. medical cannabis oil inhalation Inhale as needed 0 Active (pain). Vape THC: 5 mg dose - per pt medical cannabis capsule Take 1-4 capsules by mouth 2 (two) times a day as needed (pain). THC component: 10 mg 0 Active CBD component: 0 mg medical cannabis oil oral Take 1 each by 0 Active mouth as needed (pain). 1 spray as needed. 5 mg THC clindamycin (CLEOCIN T) 1 % Apply 1 0 02/22/2022 Active external solution application topically 2 (two) times a day. Apply to face. diclofenac sodium (VOLTAREN) 1 % Apply 2-4 g 0 01/01 Active gel topically 4 (four) times a day as needed. Arnuity Ellipta 100 mcg/actuation Inhale 1 puff 0 Active diskus inhaler daily. oxyCODONE (ROXICODONE) 10 mg IR Take 10 mg by 0 01/28 Active tablet mouth every 4 (four) hours as needed for pain. Per patient uses 4-5 tablets per day usually rOPINIRole (REQUIP) 2 mg tablet Take 2 mg by 0 01/28 Active mouth at bedtime. multivit-min/iron/folic/nen130 Take 1 tablet by 0 Active (HAIR, SKIN AND NAILS ADVANCED mouth daily. ORAL) sennosides-docusate sodium Take 1 tablet by 0 2021 Active (SENOKOT-S) 8.6-50 mg per tablet mouth 2 (two) times a day. aspirin 325 mg tablet Take 1 tablet 0 02/27/2022 Active (325 mg total) by mouth every evening. naloxone (NARCAN) 4 mg/actuation Administer 1 0 /2 07/2022 Active nasal spray spray into one nostril as directed. SPRAY 0.1 MILLILITER BY INTRANASAL ROUTE IN 1 NOSTRIL MAY REPEAT DOSE EVERY 2-3 MINUTES NEEDED ALTERNATING NOSTRILS rizatriptan (MAXALT) 10 mg tablet Take 1 tablet by 0 05/05/2022 Active mouth as directed. May repeat every 2hrs as needed (Max 30mg/24hrs) furosemide (LASIX) 40 mg tablet Take 1 tablet (40 0 06/17/2022 Active mg total) by mouth daily. esomeprazole (NexIUM) [address] Take 1 capsule 30 capsule 1 Active capsule (40 mg total) by mouth every morning before breakfast. acetaminophen (TYLENOL 8 HR) 650 mg Take 1,300 mg by 0 Active ER tablet mouth 3 (three) times a day. cholecalciferol (VITAMIN D3) 125 Take 5,000 Units 0 06/07/2022 Active mcg (5,000 Unit) capsule by mouth daily. Banophen 25 mg capsule Take 25-50 mg by 0 06/08/2022 Active mouth every 4 (four) hours as needed. cyanocobalamin, vitamin B-12, 2,500 Place 5,000 mcg 0 06/07/2022 Active mcg tablet, sublingual under the tongue daily. pregabalin (LYRICA) 300 mg capsule Take 1 capsule 60 capsule 0 06/24/2022 Active (300 mg total) by mouth 2 (two) times a day. ondansetron ODT (ZOFRAN-ODT) 4 mg 4 mg as needed. 0 05/22/2022 Active disintegrating tablet SUMAtriptan (IMITREX) 5 1-2 sprays as 0 04/24/2022 Active mg/actuation nasal spray needed. QUEtiapine (SEROquel) 50 mg tablet Take 50 mg by 0 0 06/22/2022 Active mouth at bedtime. Active Problems Problem Noted Date Weakness General 06/15/2022 Primary Osteoarthritis Shoulder Left 05/17/2022 Anemia 05/03/2022 [...] Added automatically from request for lonnie li [id number] Nicotine Dependence Unspecified 11/29/2017 Other Care Home Current Drug Therapy 12/30/2016 Opioid Moderate Or Severe Use Disorder (Dependence) Un complicated 08/27/2016 Bipolar II Disorder 09/27/2007 Transient Ischemic Attack Encounters Date Type Specialty Care Team Description 07/19/2022 Refill Community Internal Hoda Benito, Med Re fill Medicine M.DBritton 06/29/2022 Comprehensive Visit Physical Medicine Flavia Broderick ocedure And Treatment Not Carried Out Due To Patient Leaving Prior To Being Seen By Health Care Provider (Primary Dx); and Rehabilitation Lilian Porter Aftercare Total Shoulder Arthroplasty Jessie Faye M.S., O.T. 06/29/2022 Hospital Encounter Radiology Flavia Broderick Aftercar e Total Lilian Porter Shoulder Arthro plasty 06/29/2022 Office Visit Orthopedic Surgery Cyrus Polk Pain Sh oulder Left Lilian Souza (Primary Dx) 06/28/2022 Clinical Acute Care Latrice, Patient needs t o r/s Communication Lilian Hughes Jun 5 appointm ents 06/25/2022 Clinical Admitting/Central Pre-visit Intake Communication Scheduling 06/23/2022 Clinical Orthopedic Surgery Cyrus Polk Post-op Communication Lilian Souza 06/22/2022 Clinical Acute Care Latrice Pregabalin Communication Lilian Hughes prescription 06/21/2022 Clinical Acute Care Latrice, Medication Ques tion Communication Lilian Hughes 06/17/2022 Anesthesia Event Radiology Sapphire Verma, NIKKY, AUTOMOTIVE MECHANICAL ENGINEER, DNAP Brian Hunt M.D. 06/17/2022 Orders Only Acute Care Latrice, Chronic Pain Sy ndrome (Primary Dx); Lilian Hughes Transient Ische maria t Attack; Fibromyalgia 06/15/2022 Ancillary Procedure Radiology Demarcus Ernst M.D. 06/15/2022 Ancillary Procedure Radiology Demarcus Ernst M.D. 06/15/2022 Hospital Encounter Tony, Weakness General (Primary Dx); - Scooter P, Incontinence Ur inary; 06/18/2022 Prerna SHER Pain Back; Garcia, Ataxia; Neftali García M.D. 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 Cerebrovascular Accident; Stroke Cerebrov ascular Accident Personal History; Fusion Cervical Spine Status Post; Fibromyalgia; Chronic Pain Sy ndrome; Cerebral Infarc tion Due To Embolism Right Vertebral Artery (HCC); Decline Functio nal Status [R53.81 (ICD-10-CM)] 06/15/2022 Clinical Neurology Robert Diehl Followup ([facility] Communication Lilian Celaya Patient/) 06/10/2022 Clinical Orthopedic Surgery Cyrus Polkay re sults Communication Lilian Souza 06/03/2022 Clinical Orthopedic Surgery Cyrus Polk Post-op Problem Communication Lilian Souza 05/19/2022 Clinical Neurology Robert Diehl presc ription Communication Lilian Celaya 05/18/2022 Surgery Cyrus Polk ARTHROPLASTY Tyler Souza. REPLACEMENT TOT AL SHOULDER. 05/18/2022 Anesthesia Event Kaushik Carpenter M.B., Ch.B. 05/18/2022 Ancillary Procedure Radiology 05/18/2022 Hospital Encounter Cyrus Polk Direct Infection Of Left Shoulder In Infectious And Parasitic Diseases Classified Elsewhere (HCC) (Primary Dx); - W, M.D. Shoulder Joint Disorder Left; 05/20/2022 Pain Shoulder L eft; Primary Osteoar thritis Shoulder Left 05/17/2022 Hospital Encounter Laboratory Medicine Alfredo Herrera reoperative Exam A, OBrittonPBrittonACorazonC. 05/17/2022 Office Visit Orthopedic Surgery Cyrus Polk Pain Sh oulder Left; Lilian Souza Preoperative Ex am 05/13/2022 Virtual Visit Social Work [facility], Pain Shoulder Left; Jenna Porter M.D. Preoperative Exam Jose Bernstein L.I.C.S.W., M.S.W. 05/12/2022 Clinical Orthopedic Surgery Cyrus Polk Pre-vis it Intake Communication Lilian Souza 05/11/2022 Clinical Orthopedic Surgery Cyrus Polk Communication Lilian Souza 05/07/2022 Clinical Orthopedic Surgery Cyrus Polk Pre-vis it Testing Communication Lilian Souza Orders 05/06/2022 Clinical Orthopedic Surgery Kaushik Portillo Dischar ge Planning Communication R.N. (Discharge Ryan nning) 05/03/2022 Comprehensive Visit Anesthesiology Shauna Rubin APRN, C.N.P., M.S.N. Peter Tse, Deborah 05/03/2022 Hospital Encounter Laboratory Medicine Shauna Rubin APRN C.N.PBritton, M.S.N. from Last 3 Months Immunizations Name Administration [...] you attend rastafari or Patient refused 2021 voodoo services? Do you belong to any clubs or No 05/17/2022 organizations such as rastafari groups, unions, [employer] or athletic groups, or school groups? How [...] Sign Reading Time Taken Comments Blood Pressure 111/73 06/18/2022 10:33 AM CDT Pulse 70 06/18/2022 10:33 AM CDT Temperature 36.6 ??C (97.9 ??F) 06/18/2022 10:17 AM CDT Respiratory Rate 18 06/18/2022 10:17 AM CDT Oxygen Saturation 98% 06/18/2022 10:17 AM CDT Inhaled Oxygen Concentration - - Weight 64.6 kg (142 lb 6.7 oz) 06/17/2022 8:00 AM CDT Height 151 cm (4' 11.45) 06/16/2022 1:23 AM CDT Body Mass Index 28.33 06/16/2022 1:23 AM CDT Plan of Treatment Health Maintenance [...] 12/29/2022 12/29/2021 Check / Re-check Creatinine Level 06/18/2023 06/18/2022, 06/17/2022, 06/16/2022, Additional history exists Potassium Level 06/18/2023 06/18/2022, 06/17/2022, 06/16/2022, Additional history exists Sodium Level 06/18/2023 06/18/2022, 06/17/2022, 06/16/2022, Additional history exists Fasting Glucose for Diabetes 06/18/2025 06/18/2022, 022, Screening 06/16/2022, Additional history exists Lipid (Cholesterol) Screening 02/01/2026 02/01/2021, 2018 DTaP,Tdap,and Td Vaccines (3 - Td 05/23/2027 05/23/2017, , or Tdap) 04/22/2011 Pneumococcal vaccine (0-64 years) 2028 08/31/2019, , (3 - PPSV23 or PCV20) 01/01/2013 Zoster Vaccines Completed 09/11/2021, 09/13/2020 Medical Devices Implanted Type Area Chief Knowledge Officer Device Shelf Model / Identifier Expiration Serial / Date Lot Cmnt Bn Smp 20gm - [id number] Bone Cement Left: Nato [id number] / Implanted: Qty: 1 on 12/30/2021 by Cyrus Panchal M.D. at [facility] Shoulder / Grft Dbm Grf Obl Ld 15 - [id number] - [id number] Bone or Tis lebron Left: Medtronic 10/14/2023 [id number] / Implanted: Qty: 1 on 02/26/2022 at [facility] Shoulder [id number] / 4mm Amplatz Micro Plug Embolization Brain Amplatzer [id number] / Implanted: Qty: 1 on 02/16/2021 by Mustapha Posey M.D. at [facility] Coil Automobile Brakes Bonder / Dayo [id number] Description: MRI Conditional at 1.5T or 3T Max Whole Body YUSEF of 4 W/kg. AAC 2020 [email or web address]/ Hardware E.G. Hardware e.g. Neck Pins/Screws/Rods pins/screws/rods Scrw Cmp Pthrd 6.5x25 - [id number] Hardware e.g. Left: Trevor B iomet 12/29 [id number] / Implanted: Qty: 1 on 02/26/2022 at [facility] pins/screws/rods Shoulder 05/17 [id number] Knee Implant Knee Implant Bilateral: Knee Plg Ocl Amp Avpii 6 - [id number] Mesh or Patch Pedersen 07/31 [id number] / Implanted: Qty: 1 on 02/16/2021 by Mustapha Posey M.D. at [facility] [id number] Shoulder Implant Shoulder Implant Left: Shoulder Bsplt Glnd Cmp Rv Aug Sm - [id number] Shoulder Implant Left: Trevor Biomet 01/26 [id number] / Implanted: Qty: 1 on 02/26/2022 at [facility] Shoulder [id number] Hum Stm Cmp Rvrs Prim Mini 9 - [id number] Shoulder Implant Le ft: Trevor Biomet 08/28 [id number] / Implanted: Qty: 1 on 05/18/2022 by Cyrus Panchal M.D. at [facility] Shoulder 02/14 [id number] Medtronic Spinal Cord Stimulator Spinal Cord Back Medtronic [id number] / Implanted: 06/30/2020 (Quantity not on file) Stimulator [id number] / [id number] Description: Medtronic Intelllis Spinal Cord Stimulator model #23127. As of 06/17/22, the stimulator IPG is . This was confirmed by the inpatient pain service. Dr. Lopez confirmed on x-ray that the leads are intact. Scan in normal mode, 1.5T Pain clinic is attempting to get the sti mulator charged and working again in the outpatient setting. Stimulator MAY BE ON for future MRIs. Please verify this with the patient during future MRI appointments. SLJ 06/17/22 PT got new spinal cord stimulator bailey d . Patient states she fell and the old stimulator broke, so she had the new Medtronic device put in. 1.5T Normal/ Normal, patient has to have a remote and device needs to be put in MRI Mode prior to MRI as of 03-19-21 SDN Explanted Type Area Chief Knowledge Officer Device Shelf Model / Identifier Expiration Serial / Date Lot [facility] Vrs Dl [id number] - [id number] Shoulder Left: Trevor Biom et 05/29/2031 [id number] / Implanted: Qty: 1 on 12/30/2021 by Cyrus Panchal M.D. at [facility] Implant Shoulder / Explanted: Qty: 1 on 02/26/2022 at [facility] [id number] [facility] Cmp Rvrs Prim Std 10 - [id number] Shoulder Left: Zi mmer Biomet 12/16/2029 [id number] / Implanted: Qty: 1 on 02/26/2022 at [facility] Implant Shoulder / Explanted: Qty: 1 on 05/18/2022 at [facility] [id number] Spinal Cord Stimulator Spinal Cord Pelvis Nevro Explanted: 03/10/2020 (Quantity not on file) Stimulator Description: Device was explanted on 02-26 per Nev[employer] Support. HEMALATHA 03-19-21 Procedures Procedure Name Priority Date/Time Associated Comments Diagnosis DX SHOULDER LEFT 2+ RAD - Routine 06/29/2022 9:34 Aftercare Total R esults for VIEWS (most inpatients AM CDT Shoulder this proced ure and all Arthroplasty are in the outpatients) results section. CBC WITHOUT Routine 06/18/2022 7:50 Results for DIFFERENTIAL, B AM CDT this procedu re are in the results section. BASIC METABOLIC Routine 06/18/2022 7:50 Results f or PANEL, S/P AM CDT this procedure are in the results section. MR THORACIC SPINE RAD - Semiurgent 06/17/2022 4:49 Res ults for WITHOUT IV CONTRAST (Fast; most ED PM CDT this p rocedure patients; some are in the inpatients) results section. MR LUMBAR SPINE RAD - Semiurgent 06/17/2022 4:49 Resul ts for WITHOUT IV CONTRAST (Fast; most ED PM CDT this p rocedure patients; some are in the inpatients) results section. MR BRAIN WITHOUT IV RAD - Semiurgent 06/17/2022 4:49 R esults for CONTRAST (Fast; most ED PM CDT this procedur e patients; some are in the inpatients) results section. LDA ANE ENDOTRACHEAL Routine 06/17/2022 2:59 Resu lts for AIRWAY PM CDT this procedure are in the results section. CBC WITHOUT Routine 06/17/2022 8:00 Results for DIFFERENTIAL, B AM CDT this procedu re are in the results section. BASIC METABOLIC Routine 06/17/2022 8:00 Results f or PANEL, S/P AM CDT this procedure are in the results section. DIPSTICK, U Routine 06/16/2022 9:32 Results for AM CDT this procedure are in the results section. HC OSMOLALITY ASSAY Routine 06/16/2022 9:32 Resul ts for URINE AM CDT this procedure are in the results section. PH, RANDOM, U Routine 06/16/2022 9:32 Results for AM CDT this procedure are in the results section. MICROSCOPIC MANUAL Routine 06/16/2022 9:32 Result s for AM CDT this procedure are in the results section. URINALYSIS WITH Routine 06/16/2022 9:32 Results f or MICROSCOPIC AM CDT this procedure are in the results section. VITAMIN B12 ASSAY, S Routine 06/16/2022 7:31 Resu lts for AM CDT this procedure are in the results section. HEMOGLOBIN A1C, B Routine 06/16/2022 7:31 Results for AM CDT this procedure are in the results section. CBC WITHOUT Routine 06/16/2022 7:31 Results for DIFFERENTIAL, B AM CDT this procedu re are in the results section. COMPREHENSIVE Routine 06/16/2022 7:31 Results for METABOLIC PANEL, S/P AM CDT this pr ocedure are in the results section. CRITICAL CARE Routine 06/15/2022 8:47 Results for PM CDT this procedure are in the results section. SARS CORONAVIRUS 2, STAT 06/15/2022 7:51 Resul ts for PCR RAPID, V PM CDT this procedure are in the results section. CT HEAD NECK RAD - Semiurgent 06/15/2022 [...] results section. TROPONIN T, BASELINE, STAT 06/15/2022 Result s for 5TH GEN, P 12:37 PM CDT this procedure are in the results section. HEPATIC FUNCTION STAT 06/15/2022 Results for PANEL, S 12:37 PM CDT this procedure are in the results section. BASIC METABOLIC STAT 06/15/2022 Results for PANEL, S/P 12:36 PM CDT this procedure are in the results section. CBC WITH STAT 06/15/2022 Results for DIFFERENTIAL, B 12:36 PM CDT this procedu re are in the results section. PROTHROMBIN TIME STAT 06/15/2022 Results for (PT), P 12:34 PM CDT this procedure are in the results section. INTERPRETATION OF RAD - Routine 06/15/2022 Results f or OUTSIDE CT SPINE (most inpatients 12:27 PM CDT this pr ocedure and all are in the outpatients) results section. INTERPRETATION OF RAD - Routine 06/15/2022 Results f or OUTSIDE CT HEAD (most inpatients 12:26 PM CDT this pro cedure and all [...] the results section. REMOTE OXIMETRY Routine 05/19/2022 MONITORING CONT. 12:29 AM CDT REMOTE OXIMETRY Routine 05/19/2022 MONITORING CONT. 12:29 AM CDT REMOTE OXIMETRY Routine 05/19/2022 MONITORING CONT. 12:29 AM CDT ADULT OXYGEN THERAPY Routine 05/18/2022 [...] results section. LDA ANE ENDOTRACHEAL Routine 05/18/2022 Results for AIRWAY 12:20 PM CDT this procedure are in the results section. ARTHROPLASTY 05/18/2022 Shoulder Joint REPLACEMENT TOTAL 11:55 AM CDT Disorder Left SHOULDER Case Notes Patient has multiple facial piercings that she is unable to remove ANESTHESIOLOGY IMAGE Routine 05/18/2022 9:35 AM R esults for this EXAM MST procedure are i n the results section. MC ANE NERVE BLOCK WITH Routine 05/18/2022 11:24 AM Results for this ULTRASOUND CDT procedure are i n the results section. IN US GUIDE PLC NDL Routine 05/18/2022 11:24 AM R esults for this CDT procedure are i n the results section. IN INJ ANES BRACHIAL Routine 05/18/2022 11:24 AM Results for this PLEX CDT procedure are i n the results section. ADULT OXYGEN THERAPY Routine 05/18/2022 10:57 AM CDT SPSMA RESULT Routine 05/17/2022 10:50 AM Results for this CDT procedure are i n the results section. BASIC METABOLIC PANEL, Routine 05/17/2022 10:50 AM Preoperativ e Exam Results for this S/P CDT procedure are i n the results section. TYPE AND SCREEN Routine 05/17/2022 10:50 AM Preoperative Exam Results for this CDT procedure are i n the results section. CBC WITH DIFFERENTIAL, Routine 05/17/2022 10:50 AM Preoperativ e Exam Results for this B CDT procedure are i n the results section. SARS CORONAVIRUS 2, Routine 05/17/2022 10:26 AM Preoperative E xam Results for this MOLECULAR DETECTION, CDT procedu re are in PCR, VARIES the results section. REFLEX ANEMIA PANEL Routine 05/03/2022 10:11 AM Anemia R esults for this (PREVIOUS CBC) CDT procedure are in the results section. from Last 3 Months Results DX Shoulder Left 2+ Views (06/29/2022 9:34 AM CDT) Anatomical Region Laterality Modality Upper Extremity, Shoulder, Musculoskeletal RST LOS, Left Computed Radiography Musculoskeletal ARZ LOS, Muskuloskeletal FLA LOS Specimen (Source) Anatomical Collection Method Collection Time Re ceived Time Location / / Volume Laterality 06/29/2022 9:40 AM CDT Impressions 06/29/2022 9:43 AM CDT Demineralization. Left reverse TSA. Displaced fracture of the greater tuberosity. New fracture involving the lateral cortex of the proximal humeral diaphysis when compared to the outside left shoulder radiographs of 06/14/22. Di stal clavicle resection. Old healed left-sided rib fracture. Inco mpletely imaged instrumented cervical and upper thoracic spinal fusion. Narrative 06/29/2022 9:43 AM CDT EXAM: ??DX SHOULDER LEFT 2+ VIEWS Procedure Note Timothy Resendiz M.D. - 06/29/2022Forma tting of this note might be different from the original. EXAM: DX SHOULDER LEFT 2+ VIEWS IMPRESSION: Demineralization. Left reverse TSA. Disp laced fracture of the greater tuberosity. New fracture involving the lateral cortex of the proximal humeral diaphysis when compared to the outside left shoulder radiographs of 06/14/22. Di stal clavicle resection. Old healed left-sided rib fracture. Inco mpletely imaged instrumented cervical and upper thoracic spinal fusion. Flavia NIELSON DIAGNOSTIC IMAGING PROCE DURES (ABNORMAL) CBC without Differential (06/18/2022 7:50 AM CDT)Only the most recent of3 resultswithin the time period is included. [facility] Method Time Signature Hemoglobin 11.2 (L) 11.6 - 06/18/2022 DTL 15.0 g/dL 8:20 AM CDT Hematocrit 35.3 (L) 35.5 - 06/18/2022 DTL 44.9 % 8:20 AM CDT Erythrocytes 4.23 3.92 - 06/18/2022 DTL 5.13 8:20 AM CDT x10(12)/L MCV 83.5 78.2 - 06/18/2022 DTL 97.9 fL 8:20 AM CDT RBC Distrib An accurate 12.2 - 06/18/2022 DTL Width RDW can not 16.1 % 8:20 AM CDT be determined. Platelet Count 300 157 - 371 06/18/2022 DTL x10(9)/L 8:20 AM CDT Leukocytes 6.0 3.4 - 9.6 06/18/2022 DTL x10(9)/L 8:20 AM CDT Specimen Anatomical Collection Method Collection Time Receive d Time (Source) Location / / Volume Laterality Blood (Blood, 06/18/2022 7:50 AM 06/18/20 8:13 Venous) CDT AM CDT Maira Haynes M.D. LAB BLOOD ADD-ON Performing Organization Address City/State/ZIP Code Phon e Number [facility] [address] [place], [place] [address] [facility] [place] [address] [facility] [address] [facility] Basic Metabolic Panel (06/18/2022 7:50 AM CDT)Only the most recent of5 results within the time period is included. P athologist Signature Potassium, S 4.2 3.6 - 5.2 06/18/2022 DTL mmol/L 8:56 AM CDT Sodium, S 137 135 - 145 06/18/2022 DTL mmol/L 8:56 AM CDT Chloride, S 102 98 - 107 06/18/2022 DTL mmol/L 8:56 AM CDT Bicarbonate, S 22 22 - 29 06/18/2022 DTL mmol/L 8:56 AM CDT Anion Gap 13 7 - 15 06/18/2022 DTL 8:56 AM CDT BUN (Blood Urea 15 6 - 21 06/18/2022 DTL Nitrogen), S mg/dL 8:56 AM CDT Creatinine 0.76 0.59 - 06/18/2022 DTL 1.04 mg/dL 8:56 AM CDT eGFR-Non 86 >=60 06/18/2022 DTL Black/ mL/min/BSA 8:56 AM CDT Faroese Comment: ----ADDITIONAL INFORMATION---- Estimated GFR calculated using the 2009 CKD_EPI creatinine equation. eGFR-Black/ >90 >=60 mL/min/BSA 2021 8:56 AM CDT DTL Comment: ----ADDITIONAL INFORMATION---- Estimated GFR calculated using the 2009 CKD_EPI creatinine equation. Calcium, Total, S 9.9 8.6 - 10.0 mg/dL 06/18/2022 8:56 AM CDT DTL Glucose, S 111 70 - 140 mg/dL 06/18/2022 8:56 AM CDT D TL Specimen Anatomical Collection Method Collection Time Receive d Time (Source) Location / / Volume Laterality Blood (Blood, 06/18/2022 7:50 AM 06/18/20 8:35 Venous) CDT AM CDT Maira Haynes M.D. LAB BLOOD ADD-ON Performing Organization Address City/State/ZIP Code Phon e Number [facility] - [address] [place], [place] [address] [facility] [place] [address] [facility] [address] MR Lumbar Spine without IV Contrast (06/17/2022 4:49 PM CDT) Anatomical Region Laterality Modality Lumbar Spine, Neuroradiology RST LOS, Neuroradiology N/A Magnetic Resonance ARZ [facility], Neuroradiology FLA [facility] Specimen (Source) Anatomical Collection Method Collection Time Re ceived Time Location / / Volume Laterality 06/17/2022 7:39 PM CDT Impressions 06/17/2022 7:58 PM CDT 1. ??Stable MRI examination of the brain. 2. ??Stable evolved posterior circulatio n infarcts. 3. ??Posterior spinal fusion of the lowe r cervical and upper thoracic spine. 4. ??No significant abnormality seen of the thoracic spinal cord and no significant thoracic degenerative change. 5. ??Spinal stimulator. 6. ??Multilevel laminectomies of the low er lumbar spine. 7. ??Osseous fusion L4-S1. 8. ??Degenerative changes of the upper l umbar spine worst at L2-3. 9. ??Marked left-sided foraminal stenosi s at L1-2 through L3-4. Narrative 06/17/2022 7:58 PM CDT EXAM: MR BRAIN WITHOUT IV CONTRAST, MR LUMBAR SPINE WITHOUT IV CONTRAST, MR THORACIC SPINE WITHOUT IV CONTRAST COMPARISON: Prior brain MRI examination dated 2022. 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 No restricted diffusion or interim infarct. Mild cerebral and cerebellar atrophy. La cunar infarct within the right thalamus. No significant microvascular ischemic disease. The know n left internal carotid 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 The lower brule intraocular lenses are absent . Mild mucosal thickening within the paranasal sinuses. The mastoid air cells are clear. Thoracic spine: There is a kyphotic curv ature of the thoracic spine. Posterior fixation hardware extending inferiorly to T3. The thoracic vertebral bodies are preserved in height. The T3-4 through T12-L1 disks are preserved without disc protrusion. The upper thoracic cord is obscured. The lower thoracic spinal cord is normal in signal . Serpiginous signal abnormality along the dorsal surface of the spinal cord from T7 to T11 on consis tent with the spinal cord stimulator. Epidural lipomatosis from T3 2 T7-8. Lumbar spine: Posterior laminectomies at L5 and S1. Osseous fusion of L4 with L5 and S1. Mild posterior subluxation of L1 on L2, L2 on L3. The lumbar vertebral bodies are preserved in height. The lumbar discs are desiccated. Loss of disc space height at L2-3. The distal spinal cord is normal in appe arance. The conus terminates normally. No abnormality seen of the nerve roots of the cauda equina. L1-2: Small diffuse disc bulge, marked l eft and mild right-sided neural foraminal narrowing, moderate facet degenerative change and n o significant canal stenosis. L2-3: Moderate-sized disc bulge with pos terior osteophytic ridging, marked left and moderate right-sided neural foraminal narrowing, moderate facet degenerative change and mild canal stenosis. L3-4: Moderate-sized diffuse disc bulge, marked left and mild right-sided neural foraminal narrowing, mild canal stenosis change an d moderate to severe facet degenerative change. L4-5 and L5-S1: Bony fusion across disc spaces. No significant neural foraminal narrowing. No significant canal stenosis. The L4-5 and L5-S1 facets are fused. Marked fatty atrophy of the posterior pa raspinal musculature. Procedure Note Raquel Bedoya M.D. - 06/17/2022Fo rmatting of this note might be different from the original. EXAM: MR BRAIN WITHOUT IV CONTRAST, MR L UMBAR SPINE WITHOUT IV CONTRAST, MR THORACIC SPINE WITHOUT IV CONTRAST COMPARISON: Prior brain MRI examination dated 2022. 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 No restricted diffusion or interim infarct. Mild cerebral and cerebellar atrophy. La cunar infarct within the right thalamus. No significant microvascular ischemic disease. The know n left internal carotid 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 The lower brule intraocular lenses are absent . Mild mucosal thickening within the paranasal sinuses. The mastoid air cells are clear. Thoracic spine: There is a kyphotic curv ature of the thoracic spine. Posterior fixation hardware extending inferiorly to T3. The thoracic vertebral bodies are preserved in height. The T3-4 through T12-L1 disks are preserved without disc protrusion. The upper thoracic cord is obscured. The lower thoracic spinal cord is normal in signal . Serpiginous signal abnormality along the dorsal surface of the spinal cord from T7 to T11 on consis tent with the spinal cord stimulator. Epidural lipomatosis from T3 2 T7-8. Lumbar spine: Posterior laminectomies at L5 and S1. Osseous fusion of L4 with L5 and S1. Mild posterior subluxation of L1 on L2, L2 on L3. The lumbar vertebral bodies are preserved in height. The lumbar discs are desiccated. Loss of disc space height at L2-3. The distal spinal cord is normal in appe arance. The conus terminates normally. No abnormality seen of the nerve roots of the cauda equina. L1-2: Small diffuse disc bulge, marked l eft and mild right-sided neural foraminal narrowing, moderate facet degenerative change and n o significant canal stenosis. L2-3: Moderate-sized disc bulge with pos terior osteophytic ridging, marked left and moderate right-sided neural foraminal narrowing, moderate facet degenerative change and mild canal stenosis. L3-4: Moderate-sized diffuse disc bulge, marked left and mild right-sided neural foraminal narrowing, mild canal stenosis change an d moderate to severe facet degenerative change. L4-5 and L5-S1: Bony fusion across disc spaces. No significant neural foraminal narrowing. No significant canal stenosis. The L4-5 and L5-S1 facets are fused. Marked fatty atrophy of the posterior pa raspinal musculature. IMPRESSION: 1. Stable MRI examination of the brain. 2. Stable evolved posterior circulation infarcts. 3. Posterior spinal fusion of the lower cervical and upper thoracic spine. 4. No significant abnormality seen of th e thoracic spinal cord and no significant thoracic degenerative change. 5. Spinal stimulator. 6. Multilevel laminectomies of the lower lumbar spine. 7. Osseous fusion L4-S1. 8. Degenerative changes of the upper lum bar spine worst at L2-3. 9. Marked left-sided foraminal stenosis at L1-2 through L3-4. Scooter Tony APRN C.N.PBritton IMGeronimo MRI PROCEDURES MR Thoracic Spine without IV Contrast (06/17/2022 4:49 PM CDT) Anatomical Region Laterality Modality Thoracic Spine, Neuroradiology RST LOS, Neuroradiology N/A Magnetic Resonance ARZ [facility], Neuroradiology FLA [facility] Specimen (Source) Anatomical Collection Method Collection Time Re ceived Time Location / / Volume Laterality 06/17/2022 7:39 PM CDT Impressions 06/17/2022 7:58 PM CDT 1. ??Stable MRI examination of the brain. 2. ??Stable evolved posterior circulatio n infarcts. 3. ??Posterior spinal fusion of the lowe r cervical and upper thoracic spine. 4. ??No significant abnormality seen of the thoracic spinal cord and no significant thoracic degenerative change. 5. ??Spinal stimulator. 6. ??Multilevel laminectomies of the low er lumbar spine. 7. ??Osseous fusion L4-S1. 8. ??Degenerative changes of the upper l umbar spine worst at L2-3. 9. ??Marked left-sided foraminal stenosi s at L1-2 through L3-4. Narrative 06/17/2022 7:58 PM CDT EXAM: MR BRAIN WITHOUT IV CONTRAST, MR LUMBAR SPINE WITHOUT IV CONTRAST, MR THORACIC SPINE WITHOUT IV CONTRAST COMPARISON: Prior brain MRI examination dated 2022. 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 No restricted diffusion or interim infarct. Mild cerebral and cerebellar atrophy. La cunar infarct within the right thalamus. No significant microvascular ischemic disease. The know n left internal carotid 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 The lower brule intraocular lenses are absent . Mild mucosal thickening within the paranasal sinuses. The mastoid air cells are clear. Thoracic spine: There is a kyphotic curv ature of the thoracic spine. Posterior fixation hardware extending inferiorly to T3. The thoracic vertebral bodies are preserved in height. The T3-4 through T12-L1 disks are preserved without disc protrusion. The upper thoracic cord is obscured. The lower thoracic spinal cord is normal in signal . Serpiginous signal abnormality along the dorsal surface of the spinal cord from T7 to T11 on consis tent with the spinal cord stimulator. Epidural lipomatosis from T3 2 T7-8. Lumbar spine: Posterior laminectomies at L5 and S1. Osseous fusion of L4 with L5 and S1. Mild posterior subluxation of L1 on L2, L2 on L3. The lumbar vertebral bodies are preserved in height. The lumbar discs are desiccated. Loss of disc space height at L2-3. The distal spinal cord is normal in appe arance. The conus terminates normally. No abnormality seen of the nerve roots of the cauda equina. L1-2: Small diffuse disc bulge, marked l eft and mild right-sided neural foraminal narrowing, moderate facet degenerative change and n o significant canal stenosis. L2-3: Moderate-sized disc bulge with pos terior osteophytic ridging, marked left and moderate right-sided neural foraminal narrowing, moderate facet degenerative change and mild canal stenosis. L3-4: Moderate-sized diffuse disc bulge, marked left and mild right-sided neural foraminal narrowing, mild canal stenosis change an d moderate to severe facet degenerative change. L4-5 and L5-S1: Bony fusion across disc spaces. No significant neural foraminal narrowing. No significant canal stenosis. The L4-5 and L5-S1 facets are fused. Marked fatty atrophy of the posterior pa raspinal musculature. Procedure Note Raquel Bedoya M.D. - 06/17/2022Fo rmatting of this note might be different from the original. EXAM: MR BRAIN WITHOUT IV CONTRAST, MR L UMBAR SPINE WITHOUT IV CONTRAST, MR THORACIC SPINE WITHOUT IV CONTRAST COMPARISON: Prior brain MRI examination dated 2022. 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 No restricted diffusion or interim infarct. Mild cerebral and cerebellar atrophy. La cunar infarct within the right thalamus. No significant microvascular ischemic disease. The know n left internal carotid 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 The lower brule intraocular lenses are absent . Mild mucosal thickening within the paranasal sinuses. The mastoid air cells are clear. Thoracic spine: There is a kyphotic curv ature of the thoracic spine. Posterior fixation hardware extending inferiorly to T3. The thoracic vertebral bodies are preserved in height. The T3-4 through T12-L1 disks are preserved without disc protrusion. The upper thoracic cord is obscured. The lower thoracic spinal cord is normal in signal . Serpiginous signal abnormality along the dorsal surface of the spinal cord from T7 to T11 on consis tent with the spinal cord stimulator. Epidural lipomatosis from T3 2 T7-8. Lumbar spine: Posterior laminectomies at L5 and S1. Osseous fusion of L4 with L5 and S1. Mild posterior subluxation of L1 on L2, L2 on L3. The lumbar vertebral bodies are preserved in height. The lumbar discs are desiccated. Loss of disc space height at L2-3. The distal spinal cord is normal in appe arance. The conus terminates normally. No abnormality seen of the nerve roots of the cauda equina. L1-2: Small diffuse disc bulge, marked l eft and mild right-sided neural foraminal narrowing, moderate facet degenerative change and n o significant canal stenosis. L2-3: Moderate-sized disc bulge with pos terior osteophytic ridging, marked left and moderate right-sided neural foraminal narrowing, moderate facet degenerative change and mild canal stenosis. L3-4: Moderate-sized diffuse disc bulge, marked left and mild right-sided neural foraminal narrowing, mild canal stenosis change an d moderate to severe facet degenerative change. L4-5 and L5-S1: Bony fusion across disc spaces. No significant neural foraminal narrowing. No significant canal stenosis. The L4-5 and L5-S1 facets are fused. Marked fatty atrophy of the posterior pa raspinal musculature. IMPRESSION: 1. Stable MRI examination of the brain. 2. Stable evolved posterior circulation infarcts. 3. Posterior spinal fusion of the lower cervical and upper thoracic spine. 4. No significant abnormality seen of th e thoracic spinal cord and no significant thoracic degenerative change. 5. Spinal stimulator. 6. Multilevel laminectomies of the lower lumbar spine. 7. Osseous fusion L4-S1. 8. Degenerative changes of the upper lum bar spine worst at L2-3. 9. Marked left-sided foraminal stenosis at L1-2 through L3-4. Scooter Tony APRN, C.NBrittonP. IMG MRI PROCEDURES MR Brain without IV Contrast (06/17/2022 4:49 PM CDT) Anatomical Region Laterality Modality Head, Brain, Neuroradiology RST LOS, Neuroradiology ARZ N/A Magnetic Resonance LOS, Neuroradiology FLA LOS Specimen (Source) Anatomical Collection Method Collection Time Re ceived Time Location / / Volume Laterality 06/17/2022 7:39 PM CDT Impressions 06/17/2022 7:58 PM CDT 1. ??Stable MRI examination of the brain. 2. ??Stable evolved posterior circulatio n infarcts. 3. ??Posterior spinal fusion of the lowe r cervical and upper thoracic spine. 4. ??No significant abnormality seen of the thoracic spinal cord and no significant thoracic degenerative change. 5. ??Spinal stimulator. 6. ??Multilevel laminectomies of the low er lumbar spine. 7. ??Osseous fusion L4-S1. 8. ??Degenerative changes of the upper l umbar spine worst at L2-3. 9. ??Marked left-sided foraminal stenosi s at L1-2 through L3-4. Narrative 06/17/2022 7:58 PM CDT EXAM: MR BRAIN WITHOUT IV CONTRAST, MR LUMBAR SPINE WITHOUT IV CONTRAST, MR THORACIC SPINE WITHOUT IV CONTRAST COMPARISON: Prior brain MRI examination dated 2022. 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 No restricted diffusion or interim infarct. Mild cerebral and cerebellar atrophy. La cunar infarct within the right thalamus. No significant microvascular ischemic disease. The know n left internal carotid 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 The lower brule intraocular lenses are absent . Mild mucosal thickening within the paranasal sinuses. The mastoid air cells are clear. Thoracic spine: There is a kyphotic curv ature of the thoracic spine. Posterior fixation hardware extending inferiorly to T3. The thoracic vertebral bodies are preserved in height. The T3-4 through T12-L1 disks are preserved without disc protrusion. The upper thoracic cord is obscured. The lower thoracic spinal cord is normal in signal . Serpiginous signal abnormality along the dorsal surface of the spinal cord from T7 to T11 on consis tent with the spinal cord stimulator. Epidural lipomatosis from T3 2 T7-8. Lumbar spine: Posterior laminectomies at L5 and S1. Osseous fusion of L4 with L5 and S1. Mild posterior subluxation of L1 on L2, L2 on L3. The lumbar vertebral bodies are preserved in height. The lumbar discs are desiccated. Loss of disc space height at L2-3. The distal spinal cord is normal in appe arance. The conus terminates normally. No abnormality seen of the nerve roots of the cauda equina. L1-2: Small diffuse disc bulge, marked l eft and mild right-sided neural foraminal narrowing, moderate facet degenerative change and n o significant canal stenosis. L2-3: Moderate-sized disc bulge with pos terior osteophytic ridging, marked left and moderate right-sided neural foraminal narrowing, moderate facet degenerative change and mild canal stenosis. L3-4: Moderate-sized diffuse disc bulge, marked left and mild right-sided neural foraminal narrowing, mild canal stenosis change an d moderate to severe facet degenerative change. L4-5 and L5-S1: Bony fusion across disc spaces. No significant neural foraminal narrowing. No significant canal stenosis. The L4-5 and L5-S1 facets are fused. Marked fatty atrophy of the posterior pa raspinal musculature. Procedure Note Raquel Bedoya M.D. - 06/17/2022Fo rmatting of this note might be different from the original. EXAM: MR BRAIN WITHOUT IV CONTRAST, MR L UMBAR SPINE WITHOUT IV CONTRAST, MR THORACIC SPINE WITHOUT IV CONTRAST COMPARISON: Prior brain MRI examination dated 2022. 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 No restricted diffusion or interim infarct. Mild cerebral and cerebellar atrophy. La cunar infarct within the right thalamus. No significant microvascular ischemic disease. The know n left internal carotid 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 The lower brule intraocular lenses are absent . Mild mucosal thickening within the paranasal sinuses. The mastoid air cells are clear. Thoracic spine: There is a kyphotic curv ature of the thoracic spine. Posterior fixation hardware extending inferiorly to T3. The thoracic vertebral bodies are preserved in height. The T3-4 through T12-L1 disks are preserved without disc protrusion. The upper thoracic cord is obscured. The lower thoracic spinal cord is normal in signal . Serpiginous signal abnormality along the dorsal surface of the spinal cord from T7 to T11 on consis tent with the spinal cord stimulator. Epidural lipomatosis from T3 2 T7-8. Lumbar spine: Posterior laminectomies at L5 and S1. Osseous fusion of L4 with L5 and S1. Mild posterior subluxation of L1 on L2, L2 on L3. The lumbar vertebral bodies are preserved in height. The lumbar discs are desiccated. Loss of disc space height at L2-3. The distal spinal cord is normal in appe arance. The conus terminates normally. No abnormality seen of the nerve roots of the cauda equina. L1-2: Small diffuse disc bulge, marked l eft and mild right-sided neural foraminal narrowing, moderate facet degenerative change and n o significant canal stenosis. L2-3: Moderate-sized disc bulge with pos terior osteophytic ridging, marked left and moderate right-sided neural foraminal narrowing, moderate facet degenerative change and mild canal stenosis. L3-4: Moderate-sized diffuse disc bulge, marked left and mild right-sided neural foraminal narrowing, mild canal stenosis change an d moderate to severe facet degenerative change. L4-5 and L5-S1: Bony fusion across disc spaces. No significant neural foraminal narrowing. No significant canal stenosis. The L4-5 and L5-S1 facets are fused. Marked fatty atrophy of the posterior pa raspinal musculature. IMPRESSION: 1. Stable MRI examination of the brain. 2. Stable evolved posterior circulation infarcts. 3. Posterior spinal fusion of the lower cervical and upper thoracic spine. 4. No significant abnormality seen of th e thoracic spinal cord and no significant thoracic degenerative change. 5. Spinal stimulator. 6. Multilevel laminectomies of the lower lumbar spine. 7. Osseous fusion L4-S1. 8. Degenerative changes of the upper lum bar spine worst at L2-3. 9. Marked left-sided foraminal stenosis at L1-2 through L3-4. Scooter Tony APRN, C.N.P. IMG MRI PROCEDURES LDA ANE ENDOTRACHEAL AIRWAY (06/17/2022 2:59 PM CDT) Narrative Sapphire Verma APRN, CRNA, DNAP - 06/17/20 2:59 PM CDT Sapphire Verma APRN, CRNA, DNAP ? 06/17/2022 ??3:34 PM Airway Date/Time: 06/17/2022 2:59 PM Performed by: Sapphire Verma APRN, CRNA, D NAP Authorized by: Sapphire Verma APRN, CRNA, DNAP Care team members present 1. Brian Hunt M.D. Patient location during procedure: OR / Procedure Area PROCEDURE DETAILS: Mask difficulty assessment: easy mask Final airway type: video laryngoscope Laryngeal Manipulation: no ?? Final best view of glottic structures - Cormack/Lehane Score: grade 1 ETT location: oral VL device: glide scope [place] scope blade size: 3 Adult tube size: 7 Adult ETT distance at teeth/gum: 22 Oral tube type: standard ETT Cuffed: yes Airway confirmation: bilateral breath so unds, positive ETCO2 and bilateral chest rise Other previous techniques attempted: non e PRE PROCEDURE DETAILS: Pre evaluation for airway management: pr ocedure Urgency: elective Preop assessment of probable difficulty: questionable / suspicious difficult airway Preoxygenation: bag valve mask SEDATION / ANESTHESIA Anesthesia method: anesthesia POST PROCEDURE DETAILS: ? Procedure outcome: successful ?? Airway event: no complications Sapphire Verma APRN, CRNA DNACamelia ANESTHESIA ORDERABLES Osmolality, Urine (06/16/2022 9:32 AM CDT) P athologist Signature Osmolality, U 745 150 - 1150 06/16/2022 DTL mOsm/kg 11:17 AM CDT Specimen Anatomical Collection Method Collection Time Receive d Time (Source) Location / / Volume Laterality Urine 06/16/2022 9:32 AM CDT 10:39 AM CDT Maira Haynes M.D. LAB URINE ORDERABLES Performing Organization Address City/State/ZIP Code Phon e Number [facility] - [address] [place], [place] [address] [facility] [place] [address] Laboratories-[facility] [address] (ABNORMAL) Dipstick, Urine (06/16/2022 9:32 AM CDT) Patholo gist Method Time Signature Hemoglobin, Large (A) Negative 06/16/2022 DTL QL, U 10:55 AM CDT Leukocyte Negative Negative 06/16/2022 DTL Esterase, U 10:55 AM CDT Nitrite, U Negative Negative 06/16/2022 DTL 10:55 AM CDT Ketone, U Negative Negative 06/16/2022 DTL mg/dL 10:55 AM CDT Glucose, U Negative Negative 06/16/2022 DTL mg/dL 10:55 AM CDT Specimen Anatomical Collection Method Collection Time Receive d Time (Source) Location / / Volume Laterality Urine 06/16/2022 9:32 AM 2 CDT 10:39 AM CDT Maira Haynes M.D. LAB URINE ORDERABLES Performing Organization Address City/[facility] Phon e Number [facility] [address] pH, Random, Urine (06/16/2022 9:32 AM CDT) athologist Signature pH, Random, U 5.0 4.5 - 8.0 06/16/2022 DTL 11:17 AM CDT Specimen Anatomical Collection Method Collection Time Receive d Time (Source) Location / / Volume Laterality Urine 06/16/2022 9:32 AM 2 CDT 10:39 AM CDT Maira Haynes M.D. LAB URINE ORDERABLES Performing Organization Address City/[facility] Phon e Number [facility] - [address] (ABNORMAL) Microscopic Manual (06/16/2022 9:32 AM CDT) Analysis Performed At Patho logist Time Signature Microscopy Abnormal 06/16/2022 DTL 11:55 AM CDT RBC >100 (A) <3 /hpf 06/16/2022 DTL 11:55 AM CDT Dysmorphic RBC <25 <25 % 06/16/2022 DTL 11:55 AM CDT WBC 4-10 /hpf 06/16/2022 DTL 11:55 AM CDT Comment: ----REFERENCE VALUE---- 1-3 ??(Males) 1-10 (Females) Casts, Hyaline Occas /lpf 06/16/2022 11:55 AM CDT D TL Specimen Anatomical Collection Method Collection Time Receive d Time (Source) Location / / Volume Laterality Urine 06/16/2022 9:32 AM CDT 10:39 AM CDT Maira Haynes M.D. LAB URINE ORDERABLES Performing Organization Address [facility] Phon e Number [facility] - [address] [place], [place] [address] [place] [address] [place] [address] (ABNORMAL) Urinalysis with Microscopic: Urine, Catheter (06/16/2022 9:32 AM CDT) [facility] gist Method Time Signature Source Urine, 06/16/2022 DTL Urine, 10:38 AM CDT Catheter Color, U Yellow 06/16/2022 DTL 10:39 AM CDT Clarity, U Clear 06/16/2022 DTL 10:39 AM CDT Protein, U 39 (H) <26 mg/dL 06/16/2022 DTL 11:19 AM CDT Protein/[place]smola 0.52 (H) <0.42 06/16/2022 DTL lity ratio 11:19 AM CDT Predicted 24 372 mg/24 h 06/16/2022 DTL Hr Protein 11:19 AM CDT Predicted [phone] mg/24 h 06/16/2022 DTL Range 11:19 AM CDT Comment Micro done 06/16/2022 DTL on <10 mL 11:52 AM CDT Specimen Anatomical Collection Method Collection Time Receive d Time (Source) Location / / Volume Laterality Urine (Urine, 06/16/2022 9:32 AM 06/16/20 22 Catheter) CDT 10:38 AM CDT Maira Haynes M.D. LAB URINE ORDERABLES Performing Organization Address [facility] Phon e Number [facility] - [address] [place], [place] [address] [facility] [place] [address] [facility] [address] [facility] Hemoglobin A1c (06/16/2022 7:31 AM CDT) athologist Signature Hemoglobin A1c, 4.9 4.0 - 5.6 06/16/2022 DTL B % 8:13 AM CDT Specimen Anatomical Collection Method Collection Time Receive d Time (Source) Location / / Volume Laterality Blood (Blood, 06/16/2022 7:31 AM 06/16/20 7:51 Venous) CDT AM CDT Kiran Melton M.D. LAB BLOOD ADD-ON Performing Organization Address City/[facility] Phon e Number [facility] - [address] [place], [place] [address] [place] [address] [facility] [address] [facility] Vitamin B12 Assay (06/16/2022 7:31 AM CDT) athologist Signature Vitamin B12 201 180 - 914 06/16/2022 DT Assay, S ng/L 9:16 AM CDT Comment: ----ADDITIONAL INFORMATION---- In patients [...] Location / / Volume Laterality Blood (Blood, 06/16/2022 7:31 AM 06/16/20 8:11 Venous) CDT AM CDT Kiran Melton M.D. LAB BLOOD ADD-ON Performing Organization Address City/[facility] Code Phon e Number [facility] - [address] [place], [place] [address] [place] [address] [facility] [address] [facility] (ABNORMAL) Comprehensive Metabolic Panel (06/16/2022 7:31 AM CDT) athologist Signature Potassium, S 4.1 3.6 - 5.2 06/16/2022 DTL mmol/L 8:22 AM CDT Sodium, S 137 135 - 145 06/16/2022 DTL mmol/L 8:22 AM CDT Chloride, S 104 98 - 107 06/16/2022 DTL mmol/L 8:22 AM CDT Bicarbonate, S 22 22 - 29 06/16/2022 DTL mmol/L 8:22 AM CDT Anion Gap 11 7 - 15 06/16/2022 DTL 8:22 AM CDT BUN (Blood Urea 14 6 - 21 06/16/2022 DTL Nitrogen), S mg/dL 8:22 AM CDT Creatinine 0.82 0.59 - 06/16/2022 DTL 1.04 mg/dL 8:22 AM CDT eGFR-Non 79 >=60 06/16/2022 DTL Black/ mL/min/BSA 8:22 AM CDT Faroese Comment: ----ADDITIONAL INFORMATION---- Estimated GFR calculated using the 2009 CKD_EPI creatinine equation. eGFR-Black/ >90 >=60 mL/min/BSA 2021 8:22 AM CDT DTL Comment: ----ADDITIONAL INFORMATION---- Estimated GFR calculated using the 2009 CKD_EPI creatinine equation. Calcium, Total, S 8.9 8.6 - 10.0 mg/dL 06/16/2022 8:22 AM CDT DTL Glucose, S 90 70 - 140 mg/dL 06/16/2022 8:22 AM CDT D TL Protein, Total, S 6.4 6.3 - 7.9 g/dL 06/16/2022 8:22 A M CDT DTL Albumin, S 3.8 3.5 - 5.0 g/dL 06/16/2022 8:22 AM CDT D TL Aspartate Aminotransferase 42 8 - 43 U/L 06/16/2022 8 :22 AM CDT DTL (AST), S Alkaline Phosphatase, S 116 (H) 35 - 104 U/L 06/16/2022 8: 22 AM CDT DTL Alanine Aminotransferase 37 7 - 45 U/L 06/16/2022 8:2 2 AM CDT DTL (ALT), S Bilirubin, Total, S <0.2 <=1.2 mg/dL 06/16/2022 8:22 AM CDT DTL Specimen Anatomical Collection Method Collection Time Receive d Time (Source) Location / / Volume Laterality Blood (Blood, 06/16/2022 7:31 AM 06/16/20 7:54 Venous) CDT AM CDT Kiran Melton M.D. LAB BLOOD ADD-ON Performing Organization Address City/State/ZIP Code Phon e Number [facility] - [address] [place], [place] [address] [facility] [place] [address] [facility] [address] [facility] Critical Care (06/15/2022 8:47 PM CDT) Narrative Scooter Tony APRN, C.N.P. - 06/15 8:47 PM CDT Scooter Tony APRN C.N.P. ? 06/15/2022 ??8:47 PM Critical Care Date/Time: 06/15/2022 8:47 PM Performed by: Scooter Tony APRN, C.N.P. Authorized by: Scooter Tony APRN, C.N.P. 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 PROCEDURE/MINOR SURGICA L ORDERABLES SARS Coronavirus 2, PCR Rapid, V Symptomatic (06/15/2022 7:51 PM CDT) [facility] Method Time Signature SARS CoV-2, Undetected Undetected 06/15/2022 [facility] PCR, Rapid, V 8:23 PM CDT Comment: ----ADDITIONAL INFORMATION---- This RT-PCR test was performed using the Tita SARS-CoV-2 and Influenza A/B Reagent assay from [employer], which has received Emergency Use Authori zation(EUA) by the U.S. Food and Drug Administration . Fact sheets for this Emergency Use Autho rization (EUA) assay can be found at the following link s: For Healthcare Providers: https://www.fda.gov/media/910793/downloa d For Patients: https://www.fda.gov/media/980624/downloa d SARS Coronavirus 2, Source, Rapid Swab, Nasopharynx 06/15/2022 7:58 PM CDT STMA Specimen Anatomical Collection Method Collection Time Receive d Time (Source) Location / / Volume Laterality Varies 06/15/2022 7:51 PM 7:58 (Nasopharynx) CDT PM CDT Araceli Ochoa APRNNBrittonPBritton LAB MICROBIOLOGY - GENE RAL ORDERABLES Performing Organization Address City/State/ZIP Code Phon e Number [facility] - [address] [place], [place] [address] [facility] [place] [address] [facility] [address] Head Neck Angiogram with IV Contrast [...] 2H/6H, 5th Gen (06/15/2022 2:48 PM CDT) [facility] Method Time Signature Troponin T, 2 <6 <=10 ng/L 06/15/2022 [facility] hr, 5th gen 3:54 PM CDT 2H Delta 0 ng/L 06/15/2022 [facility] 3:54 PM CDT 2H Delta Not Changing 06/15/2022 [facility] Interp 3:54 PM CDT Troponin T, 6 CANCELED ng/L 06/15/2022 [facility] hr, 5th gen 3:54 PM CDT Comment: Result canceled by the theo marques Specimen Anatomical Collection Method Collection Time Receive d Time (Source) Location / / Volume Laterality Blood (Blood, 06/15/2022 2:48 PM 06/15/20 3:21 Venous) CDT PM CDT Narrative [facility] - 06/15/2022 3:54 PM CDT Specimen Information: Specimen ID: [id number] Specimen Type: Blood Specimen Collection Start Date: 06/15/20 ??2:48 PM Specimen Received Date: 06/15/2022 ??3:2 1 PM Specimen ID: [id number] Specimen Type: Blood Specimen Collection Start Date: 06/15/20 ??3:53 PM Specimen Received Date: 06/15/2022 ??3:5 3 PM Demarcus Ernst M.D. LAB BLOOD TROPONIN Performing Organization Address City/State/ZIP Code Phon e Number [facility] - [address] [place], [place] [address] [facility] [place] [address] [facility] [address] DX Hip And Pelvis [...] ECG 12 Lead (06/15/2022 1:35 PM CDT) athologist Signature Ventricular Rate 58 BPM MUSE ECG/Min IN Interval 154 ms MUSE QRSD Interval 102 ms MUSE QT Interval 442 ms MUSE QTC Interval 433 ms MUSE P Ruth 48 degrees MUSE R Ruth -1 degrees MUSE T Wave Ruth 38 degrees MUSE Specimen Anatomical Collection Method Collection Time Receive d Time (Source) Location / / Volume Laterality 06/15/2022 1:35 PM 1:56 CDT PM CDT Impressions MUSE - [...] Signature Troponin T, <6 <=10 ng/L [facility]/2022 [facility], 5th 1:37 PM CDT gen Specimen Anatomical Collection Method Collection Time Receive d Time (Source) Location / / Volume Laterality Blood (Blood, 06/15/2022 12:37 06/15/2022 1:03 Venous) PM CDT PM CDT Demarcus Ernst M.D. LAB BLOOD TROPONIN Performing Organization Address City/State/ZIP Code Phon e Number [facility] - [address] [place], [place] [address] [place] [address] [facility] [address] (ABNORMAL) Hepatic Function Panel [...] Organization Address City/State/ZIP Code Phon e Number [facility] - [address] [place] [address] [facility] [place] [address] [facility] 200 [facility] (ABNORMAL) CBC with Differential, Blood (06/15/2022 12:36 PM CDT)Only the most recent of4 resultswithin the time period is included. [facility] Method Time Signature Hemoglobin 10.4 (L) [...] Organization Address City/State/ZIP Code Phon e Number [facility] - [address] [place], [place] [address] [facility] [place] [address] [facility] [address] [place] [address] [facility] [address] Prothrombin Time (PT) (06/15/2022 12:34 PM CDT) P athologist Signature Prothrombin 10.2 9.4 - 12.5 06/15/2022 [facility] Time, P sec 1:10 PM CDT INR 0.9 0.9 - 1.1 06/15/2022 [facility] 1:10 PM CDT Comment: ----ADDITIONAL INFORMATION---- Standard [...] Organization Address City/State/ZIP Code Phon e Number [facility] - [address] [place], [place] [address] [place] [address] [facility] [address] Interpretation of Outside [...] System IMG CT PROCEDURES Performing Organization Address [facility] Phon e Number IIMS IIMS NA XR [...] DIAGNOSTIC IMAGING PROCE DURES Performing Organization Address [facility] Phon e Number IIMS IIMS NA DX [...] Jenna Zaldivar M.D. IMG DIAGNOSTIC IMAGING PROCE [facility] Surgical Pathology, Frozen Lab (05/18/2022 1:04 PM CDT) Component Value Ref Test Analysis Performed At [facility] gist Range Method Time Signature 05/20/2022 [...] permanent sections. ??Grossed by Nikki Ramirez CDT Distnicole. Block Summary A Left shoulder 05/20/2022 METH [...] Organization Address City/State/ZIP Code Phon e Number [facility] - [address] [place], [place] [address] [facility] [place] [address] [facility] [address] Bacteria Cult, Aerobe / Anaerobe+Susc (05/18/2022 1:03 PM CDT)Only the most recent of3 resultswithin the time period is included. [facility] Method Time Signature Bacteria Cult, No growth 06/01/2022 DTL Aerobe/Anaerob after 14 6:02 PM CDT e+Susc days of incubation. Specimen Anatomical Collection Method Collection Time Receive d Time (Source) Location / / Volume Laterality Shoulder, Left 05/18/2022 1:03 PM 022 5:21 CDT PM CDT Comment: Specimen Source Site: Tissue #1 Narrative [facility] - 06/01/2022 6:02 PM CDT Bacterial Culture: Placed in Bactec aero bic and Bactec anaerobic bottles Cyrus Polk M.D. LAB MICROBIOLOGY - GENERAL O RDERABLES Performing Organization Address City/State/ZIP Code Phon e Number [facility] - [address] [place] [address] [facility] [place] [place] [address] [facility] [address] LDA ANE ENDOTRACHEAL AIRWAY [...] ETT location: oral VL device: glide scope [place] scope blade size: 3 Adult tube size: [...] successful ?? Airway event: no complications Kaushik Carlos Ch.BBritton ANESTHESIA ORDERABLES IN INJ ANES BRACHIAL PLEX, IN US [employer] NDL, MC ANE NERVE [...] Organization Address City/State/ZIP Code Phon e Number [facility] NA (ABNORMAL) SPSMA Result (05/17/2022 10:50 AM [...] Kamara LAB BLOOD ADD-ON Performing Organization Address City/[facility] Phon e Number [facility] - [address] [place], [place] [address] [place] [address] [facility] 200 [facility] Type and Screen (with reflex Antibody ID) (05/17/2022 10:50 AM CDT) [facility] Method Time Signature ABORh A Neg Not 05/17/2022 ETRM applicable 7:10 PM CDT Antibody Negative Negative 05/17/2022 ETRM Screen 7:22 PM CDT Type & Screen 07/15/2022 05/17/2022 ETRM Expiration 23:59 7:10 PM CDT Testing [place] DEFAULT 05/17/2022 ETRM Location 12:24 PM CDT Specimen Anatomical Collection Method Collection Time Receive d Time (Source) Location / / Volume Laterality Blood (Blood, 05/17/2022 10:50 05/17/2022 Venous) AM CDT 12:24 PM CDT Alfredo Kamara LAB BLOOD BANK TEST ORDERABL ES Performing Organization Address City/[facility] Phon e Number [facility] - [address] [place] [address] [facility] [place] [place] [address] [facility] 200 [facility] SARS Coronavirus 2, Molecular Detection, PCR, Varies Asymptomatic (05/17/2022 10:26 AM CDT) [facility] Method Time Signature COVID-19, Swab, 05/17/2022 DTL [...] ----ADDITIONAL INFORMATION---- This RT-PCR test using the Safend SARS-Co V-2 Assay ( [employer].) performed on the Safend Two Module System has received Emergency Use Authorization (EUA) by the U.S. Food and Drug Administration, and is modified from the felt checker's instructions with a bridging study. Performance characteristics were verifie d by [facility] in a manner consistent with CLIA requirements. Visit the CDC website: https://www.cdc.g ov/coronavirus/ for the most recent guidelines on [facility] virus testing. Fact Sheet for Healthcare Providers: https://www.fda.gov/media/529762/downloa d Fact Sheet for Patients: https://www.fda.gov/media/067456/downloa d Specimen Anatomical Collection Method Collection Time Receive d Time (Source) Location / / Volume Laterality Varies 05/17/2022 10:26 05/17/2022 (Nasopharynx) AM CDT 10:52 AM CDT Alfredo Kamara LAB MICROBIOLOGY - GENERAL O RDERABLES Performing Organization Address City/State/ZIP Code Phon e Number [facility] - [address] [place], [place] [address] [facility] [place] [address] [facility] [address] [facility] (ABNORMAL) Reflex anemia panel (previous CBC) [...] Venous) AM CDT 10:53 AM CDT Narrative [facility] - 05/03/2022 11:47 AM CDT Specimen Information: Specimen ID: [id number] Specimen Type: Blood Specimen Collection Start Date: 10:11 AM Specimen Received Date: 05/03/2022 10:53 AM Specimen ID: [id number] Specimen Type: Blood Specimen Collection Start Date: 10:11 AM Specimen Received Date: 05/03/2022 10:53 AM Specimen ID: [id number] Specimen Type: Blood Specimen Collection Start Date: 10:11 AM Specimen Received Date: 05/03/2022 10:53 AM Specimen ID: [id number] Specimen Type: Blood Specimen Collection Start Date: 10:11 AM Specimen Received Date: 05/03/2022 10:32 AM Specimen ID: [id number] Specimen Type: Blood Specimen Collection Start Date: 10:11 AM Specimen Received Date: 05/03/2022 11:44 AM Shauna Rubin APRN, C.N.P., M.S.N. LAB BLOOD ADD-ON Performing Organization Address City/State/ZIP Code Phon e Number [facility] - [address] [place], [place] [address] [facility] [place] [address] [facility] [address] from Last 3 Months Insurance Payer Benefit Plan / Subscriber ID Effective Phone Address T ype Group Dates MEDICARE MEDICARE A AND B [id number] 2012-Pre [address] [place] [address] MEDICA MEDICA [id number] 2018-Pres [phone] Medica id HMO ACCESSABILITY ent [phone] [place] [address] Advance Directives For more information, please contact: [phone] Latest Code Status on File Code Status Date Activated Date Inactivated Comments Full Code 06/16/2022 1:22 AM 06/18/2022 1:00 PM Full Code: Discussed Full Code 05/18/2022 4:09 PM 05/20/2022 5:04 PM Full Code: Discussed Full Code 02/26/2022 2:52 PM 02/27/2022 2:24 PM Full Code: Discussed Full Code 12/30/2021 5:12 PM 01/01/2022 7:39 PM Full Code: Discussed Full Code 02/10/2021 11:06 PM 02/17/2021 8:26 PM Full Code: Discussed Care Teams [employer] Relationship Specialty Start Date End Date Elsewhere, Pcp PCP - General Family Medicine 12/25/21
--- OUTSIDE RECORDS SUMMARY | 2022-08-01 06:38 | XMS_ITS | Encounter Summary ---
:1965 Author Organization [facility] Address [address] [place] [address] Care Team Providers Name Role Phone Elsewhere, Pcp Primary Care Provider Unavailable Reason for Visit Reason Comments Pre-visit Intake Encounter Details Date Type Department Care Team Description 06/25/2022 Clinical Communication Visit Review in Pr e-visit Intake [place], [place] [address] [place], [place] [address] Social History Tobacco Use Types Packs/Day Years [...] you attend mandaeism or Patient refused 2021 gnosticism services? Do [...] documented as of this encounter Care Teams Mva Still Operator Relationship Specialty Start Date End Date Elsewhere, Pcp PCP - General Family Medicine 12/25/21 documented as of this encounter
--- OUTSIDE RECORDS SUMMARY | 2022-08-01 06:38 | XMS_ITS | Encounter Summary ---
:1965 Author Organization [facility] Address [address] [place] [address] Care Team Providers Name Role Phone Elsewhere, Pcp Primary Care Provider Unavailable Reason for Referral Physical Therapy (Routine) - Authorized Specialty Diagnoses / Procedures Referred By Contact Refer red To Contact Diagnoses Aftercare Total Shoulder Arthroplasty Flavia Broderick M.D. [facility] Procedures PT or OT eval and treat (first available) Referral ID Status Reason Start Date Expiration Date Visits V isits Requested Authorized [id number] Authorized 06/23/2022 06/23/2023 99 99 utpatient (Routine) - Closed Specialty Diagnoses / Procedures Referred By Contact Refer red To Contact Diagnoses Aftercare Total Shoulder Arthroplasty Flavia Broderick M.D. [facility] Procedures DX Shoulder Left 2+ Views Referral ID Status Reason Start Date Expiration Date Visits Requ ested Visits Authorized [id number] Closed 06/23/2022 06/23/2023 1 1 Reason for Visit Reason Comments Post-op Encounter Details Date Type Department Care Team Description 06/23/2022 Clinical Communication Department of Cyrus Polk-op Orthopedic Surgery in [place] Souza [place], [place] [address] [facility] [address] [place] [address] [phone] Social History Tobacco Use Types Packs/Day Years [...] you attend pentecostal or Patient refused 2021 uatsdin services? Do [...] Notes Telephone Encounter - Sosa Laughlin - 06/23/2022 10:38 AM CDT Please sign orders for post op follow up. Thank you documented in this encounter Plan of Treatment Not on filedocumented as of this encounter Results DX Shoulder Left 2+ Views (06/29/2022 [...] thoracic spinal fusion. Flavia NIELSON [facility] E[facility]ER GARDINER documented in this encounter Visit Diagnoses Diagnosis Aftercare Total Shoulder Arthroplasty - Primary Aftercare Total Shoulder Arthroplasty documented in this encounter Additional Health Concerns Assessment Noted Time PHQ-9 Depression Total Score: 16 02/11/2021 12:00 AM C DT documented as of this encounter Care Teams Coding Compliance Manager Relationship Specialty Start Date End Date Elsewhere, Pcp PCP - General Family Medicine 12/25/21 documented as of this encounter
--- OUTSIDE RECORDS SUMMARY | 2022-08-01 06:38 | XMS_ITS | Encounter Summary ---
:1965 Author Organization [facility] Address [address] [place] [address] Care Team Providers Name Role Phone Elsewhere, Pcp Primary Care Provider Unavailable Reason for Referral Outpatient (Routine) - Closed Specialty Diagnoses / Procedures Referred By Contact Refer red To Contact Diagnoses Aftercare Total Shoulder Arthroplasty Flavia Broderick M.D. [facility] Procedures DX Shoulder Left 2+ Views Referral ID Status Reason Start Date Expiration Date Visits Requ ested Visits Authorized [id number] Closed 06/23/2022 06/23/2023 1 1 Reason for Visit Outpatient (Routine) - Closed Specialty Diagnoses / Procedures Referred By Contact Refer red To Contact Diagnoses Aftercare Total Shoulder Arthroplasty Flavia Broderick M.D. [facility] Procedures DX Shoulder Left 2+ Views Referral ID Status Reason Start Date Expiration Date Visits Requ ested Visits Authorized [id number] Closed 06/23/2022 06/23/2023 1 1 Encounter Details Date Type Department Care Team Description 06/29/2022 Hospital Encounter Department of Flavia Broderick re Total Radiology, Severiano Porter M.D. Shoulder Arthroplasty Building, in [place], [place] [address] [place] [address] Social History Tobacco Use Types Packs/Day Years [...] you attend restoration or Patient refused 2021 mandaeism services? Do [...] Refills Start Date End Date acetaminophen (TYLENOL 8 Take 1,300 mg by 0 HR) 650 mg ER tablet mouth 3 (three) times a day. albuterol (PROVENTIL Inhale 2 puffs every 0 [...] mg tablet total) by mouth at bedtime. Banophen 25 mg capsule Take 25-50 mg by 0 022 mouth every 4 (four) hours as needed. benzonatate (TESSALON Take 100 mg by mouth 6 02/27 PERLES) 100 mg capsule 3 (three) times a day as needed for cough. buPROPion XL (WELLBUTRIN Take 150 mg by mouth 0 0 02/04/2021 XL) 150 mg 24 hr tablet every morning. butalbital-acetaminophen- Take 1 tablet by 0 04/0 12/2020 caff (ESGIC) 50-325-40 mg mouth every 6 (six) per tablet hours as needed for migraine. cetirizine (ZyrTEC) 10 mg Take 10 mg by mouth 0 tablet daily. cholecalciferol (VITAMIN Take 5,000 Units by 0 D3) 125 mcg (5,000 Unit) mouth daily. capsule clindamycin (CLEOCIN T) 1 Apply 1 application 0 0 02/22/2022 % external solution topically 2 (two) times a day. Apply to face. cyanocobalamin, vitamin Place 5,000 mcg under 0 0 06/07/2022 B-12, 2,500 mcg tablet, the tongue daily. sublingual diclofenac sodium Apply 2-4 g topically 0 022 (VOLTAREN) 1 % gel 4 (four) times a day as needed. esomeprazole (NexIUM) 40 Take 1 capsule (40 mg 30 capsule 1 06/17/[address] capsule total) by mouth every morning before breakfast. FLUoxetine (PROzac) 40 mg Take 80 mg by mouth 0 capsule every morning. furosemide (LASIX) 40 mg Take 1 tablet (40 mg 0 0 06/17/2022 tablet total) by mouth daily. ipratropium-albuteroL Inhale 3 mL by 0 [...] mg THC multivit-min/iron/folic/h Take 1 tablet by 0 [id number] (HAIR, SKIN AND mouth daily. NAILS ADVANCED ORAL) naloxone (NARCAN) 4 Administer 1 spray 0 03/26/20 22 mg/actuation nasal spray into one nostril as directed. SPRAY 0.1 MILLILITER BY INTRANASAL ROUTE IN 1 NOSTRIL MAY REPEAT DOSE EVERY 2-3 MINUTES NEEDED ALTERNATING NOSTRILS ondansetron ODT 4 mg as needed. 0 05/22/2022 (ZOFRAN-ODT) 4 mg disintegrating tablet oxyCODONE (ROXICODONE) 10 Take 10 mg by mouth 0 0 02/24/2022 mg IR tablet every 4 (four) hours as needed for pain. Per patient uses 4-5 tablets per day usually polyethylene glycol Take 17 g by mouth as 0 04/11 (MIRALAX) 17 gram/dose needed for oral powder constipation. pregabalin (LYRICA) 300 Take 1 capsule (300 60 capsule 0 mg capsule mg total) by mouth 2 (two) times a day. QUEtiapine (SEROquel) 50 Take 50 mg by mouth 0 mg tablet at bedtime. rizatriptan (MAXALT) 10 Take 1 tablet by 0 2021 mg tablet mouth as directed. May repeat every 2hrs as needed (Max 30mg/24hrs) rOPINIRole (REQUIP) 2 mg Take 2 mg by mouth at 0 01/28/2022 tablet bedtime. sennosides-docusate Take 1 tablet by 0 02/26/2022 sodium (SENOKOT-S) 8.6-50 mouth 2 (two) times a mg per tablet day. SUMAtriptan (IMITREX) 5 1-2 sprays as needed. 0 0 04/24/2022 mg/actuation nasal spray tiZANidine (ZANAFLEX) 4 Take 4-8 mg by mouth 1 mg tablet every 8 (eight) hours as needed for muscle spasms. Muscle spasms valACYclovir (VALTREX) Take 500 mg by mouth 0 500 mg tablet daily. zonisamide (ZONEGRAN) 100 Take 300 mg by mouth 8 02/22/2019 mg capsule 2 (two) times a day. documented as of this encounter Plan of Treatment Not on filedocumented as of this encounter Procedures Procedure Name Priority Date/Time Associated Comments Diagnosis DX SHOULDER LEFT RAD - Routine 06/29/2022 9:34 Aftercare Total Resu lts for this 2+ VIEWS (most inpatients AM CDT Shoulder procedure a re in and all Arthroplasty the results outpatients) section. documented in this [...] Visit Diagnoses Diagnosis Aftercare Total Shoulder Arthroplasty documented in this encounter Additional Health Concerns Assessment Noted Time PHQ-9 Depression Total Score: 16 02/11/2021 12:00 AM C DT documented as of this encounter Care Teams Rehabilitation Construction Specialist Relationship Specialty Start Date End Date Elsewhere, Pcp PCP - General Family Medicine 12/25/21 documented as of this encounter
--- OUTSIDE RECORDS SUMMARY | 2022-08-01 06:38 | XMS_ITS | Encounter Summary ---
:1965 Author Organization [facility] Address [address] [place] [address] Care Team Providers Name Role Phone Elsewhere, Pcp Primary Care Provider Unavailable Reason for Visit Reason Comments Patient needs to r/s Jul 02 appointments Encounter Details Date Type Department Care Team Description 06/28/2022 Clinical Communication [facility] ANDREW Pollard, Patient needs to r/s [address] [facility] Lilian Hughes Jul 02 appointments [place], [place] [address] [place] [id number] [place] [address] Social History Tobacco Use Types Packs/Day Years [...] you attend shinto or Patient refused 2021 nondenominational services? Do [...] this encounter Miscellaneous Notes Telephone Encounter - Maritza Carrillo - 06/28/2022 9:24 AM CDT The patient called--she needs to reschedule her appointments that are scheduled for July 02. She is asking that they be r/s to tomorrow, June 29, if possible since she is coming for otherappointments then. Please call patient re: this . Thanks, Maritza [phone] documented in this encounter Plan of Treatment Not on filedocumented as of this encounter Visit Diagnoses Not on filedocumented in this encounter Additional Health Concerns Assessment Noted Time PHQ-9 Depression Total Score: 16 02/11/2021 12:00 AM C DT documented as of this encounter Care Teams Soft Sugar Operator Head Relationship Specialty Start Date End Date Elsewhere, Pcp PCP - General Family Medicine 12/25/21 documented as of this encounter
--- OUTSIDE RECORDS SUMMARY | 2022-08-01 06:38 | XMS_ITS | Encounter Summary ---
:1965 Author Organization [facility] Address [address], [place] [address] Care Team Providers Name Role Phone Unassigned, Provider Primary Care Provider Unavailable Reason for Referral Procedure/Equipment (Routine) - Incomplete Specialty Diagnoses / Procedures Referred By Contact Refer red To Contact Diagnoses Screening procedure Pseudarthrosis after fusion or arthrodesis Pete Gonzalez MD Procedures FL Video Swallow Study [address] [place] [address] Referral ID Status Reason Start Date Expiration Date Visits V isits Requested Authorized [id number] Incomplete 11/29/2017 02/28/2019 1 1 herapies (Routine) - Closed Specialty Diagnoses / Procedures Referred By Contact Refer herson To Contact Diagnoses Pseudarthrosis after fusion or arthrodesis Screening procedure Pete Gonzalez MD [address] [place] [address] Referral ID Status Reason Start Date Expiration Date Visits Requ ested Visits Authorized [id number] Closed 11/29/2017 01/28/2018 1 1 Scheduling Instructions Your provider has recommended an appoint ment with a [facility]. Please stop at the clinic check out desk for as sistance with scheduling or if you prefer to call for your appointment you may call [facility] at [phone]. We suggest you call your [facility] insurance company about your coverage and benefits for this appointment. [facility] Consult/Transfer Care (Routine) - Closed Specialty Diagnoses / Procedures Referred By Contact Refer red To Contact Diagnoses Pseudarthrosis after fusion or arthrodesis Screening procedure Pete Gonzalez MD [address] [place] [address] Referral ID Status Reason Start Date Expiration Date Visits Requ ested Visits Authorized [id number] Closed 11/29/2017 02/28/2019 1 1 Scheduling Instructions Your provider has recommended an appoint ment with [facility]. You may call [phone], optio n [phone], to schedule your appointment. If you prefer, a senior power scheduler will contact you heena hebert the next 3 business days to assist you in setting up this appointment. We suggest you call your health insurance company about your coverage and benefits for this appo intment. [facility] Procedure/Equipment (Routine) - Incomplete Specialty Diagnoses / Procedures Referred By Contact Refer red To Contact Diagnoses Screening procedure Pseudarthrosis after fusion or arthrodesis Pete Gonzalez MD Procedures XR Cervical Spine W Flex And Ext [address] [place] [address] Referral ID Status Reason Start Date Expiration Date Visits V isits Requested Authorized [id number] Incomplete 10/31/2017 01/30/2019 1 1 [facility] Reason for Visit Reason Comments SECOND OPINION Consult/Transfer Care (Routine) - Closed Specialty Diagnoses / Procedures Referred By Contact Refer red To Contact Neurosurgery Ihsan Brooke MD [facility] Neurosurgery/Ortho [address] [place] [address] [place] [address]. [place] [address] Phone: Fax: Referral ID Status Reason Start Date Expiration Date Visits Requ ested Visits Authorized [id number] Closed 09/26/2017 12/26/2018 1 1 Encounter Details Date Type Department Care Team Description 11/29/2017 Office Visit [facility] Pete Gonzalez, Pseudarthr osis after fusion or arthrodesis (Primary Dx); [facility] Cervical spondylosis with radiculopathy; Neurosurgery/Ortho [address] occipital neuralgia; [address] Screening procedure [address] [place] [address] [place] [address] [phone] Social History Tobacco Use Types Packs/Day Years Used Date Smoking Tobacco: Every Day Cigarettes 0.5 Smokeless Tobacco: Never Alcohol Use Standard Drinks/Week Comments No 0 (1 standard drink = 0.6 oz pure alcoho l) Sex Assigned at Date Recorded Not on file documented as of this encounter Last Filed Vital Signs Vital Sign Reading Time Taken Comments Blood Pressure 126/77 11/29/2017 10:21 AM [facility] Pulse 77 11/29/2017 10:21 AM [facility] Temperature - - Respiratory Rate - - Oxygen Saturation - - Inhaled Oxygen Concentration - - Weight 75.4 kg (166 lb 3.2 oz) 11/29/2017 10:21 AM [facility] Height 152.4 cm (5') 11/29/2017 10:21 AM [facility] Body Mass Index 32.46 11/29/2017 10:21 AM [facility] documented in this encounter Patient Instructions Patient InstructionsChava Simon RN - 11/29/2017 10:00 AM CST [facility] Patient Instructions Tests: You will be scheduled [...] your understanding. Please call the Neurosurgery Center [phone] with any further questions or concerns or if your symptoms worsen. Thank you for coming to see us today. We are your partner. [facility] documented in this encounter Progress Notes Lois [...] after C3-T1 posterior cervical fusion done at [facility] in [place] multiple years ago. The T1 screws are [...] on fentanyl, ms contin and oxycontin in [place]. PSURGHX:No past surgical history on file. PMEDHX:No past medical history on file. MEDICATIONS: Outpatient Prescriptions as of 11/29/2017: benzonatate (TESSALON) 100 MG capsule Take 100 mg by mouth. Note (11/29/2017): Received from: [email or web address] [employer] [facility] Received Sig: Take 1 capsule by mouth 3 times daily if needed for Cough. Disp: Rfl: budesonide-formoterol (SYMBICORT) 160-4.5 MCG/ACT inhaler Inhale 2 Puffs. Note (11/29/2017): Received from: [email or web address] [employer] [facility] Received Sig: INHALE 2 PUFFS BY [...] Tab by mouth. Note (11/29/2017): Received from: [facility] [facility] Received Sig: Take 1 tablet bymouth [...] No narrative on file ROS: Reviewed per [facility] Neurosurgery New Patient Health Packet History was [...] 4/5 C7 Triceps: 5/5 4/5 C8 Finger flexors/doughnut batter mixer: 5/5 5/5 T1 Intrinsics: 5/5 5/5 Sensation: Intact with light touch bue/ble. Skin: Warm to touch to bilateral upper/lower extremities. No skin rashes or lesions noted RADIOLOGY: Personally reviewed CT scans from OSH as well as XR from here. No formal report for either available. Shows previous C3-T1 posterior fusion, appears fused C3-C6, screws at T1 appear lose. [id number] through the facet joint. ASSESSMENT: 52 year old female s/p multiple previous cervical spine surgeries including C3-T1 posterior fusion (done in [place] approx 6 years ago), with C6-T1 pseudoarthrosis, [...] of the chart to: Ihsan Brooke MD [address] [id number] Lois Pham PA-C, 11/29/2017, 12:34 PM [facility] documented in this encounter Plan of Treatment Scheduled Referrals Name Type Priority Associated Diagnoses Order S chedule Otolaryngology Consult Referral Routine Pseudarthrosis aft er Ordered: Adult/Peds fusion or arthro desis 11/29/2017 Screening procedure Speech Therapy Referral Routine Pseudarthrosis after Order ed: fusion or arthro desis 11/29/2017 Screening procedure documented as of this encounter Results FL Video Swallow Study (12/26/2017 1:03 PM [facility]) Anatomical Region Laterality Modality Neck, Chest Radio Fluoroscopy Specimen (Source) Anatomical Collection Method Collection Time Re ceived Time Location / / Volume Laterality 12/26/2017 1:03 PM [facility] Narrative 12/26/2017 6:00 PM [facility] ID VIDEO SWALLOW STUDY 12/26/2017 1:03 PM INDICATION: [...] note might be different from the original. ID VIDEO SWALLOW STUDY 12/26/2017 1:03 PM INDICATION: [...] W Flex And Ext (11/29/2017 9:54 AM [facility]) Anatomical Region Laterality Modality Spine, C-Spine, Neck Computed Radiograph y Specimen (Source) Anatomical Collection Method Collection Time Re ceived Time Location / / Volume Laterality 11/29/2017 9:54 AM [facility] Narrative 11/29/2017 10:59 AM [facility] XR CERVICAL SPINE W FLEX AND EXT [...] status documented in this encounter Care Teams Computer Network Specialist Relationship Specialty Start Date End Date Unassigned, Provider PCP - General 08/05/03 12/13/[address] [place] [id number] documented as of this encounter
--- OUTSIDE RECORDS SUMMARY | 2022-08-01 06:38 | XMS_ITS | Encounter Summary ---
:1965 Author Organization [facility] Address [address] [place] [address] Care Team Providers Name Role Phone Elsewhere, Pcp Primary Care Provider Unavailable Reason for Visit Reason Comments Pregabalin prescription Encounter Details Date Type Department Care Team Description 06/22/2022 Clinical Communication [facility] ANDREW Pollard, Pregabalin [address] [facility] Lilian Hughes prescription [place], [place] [address] [facility] [id number] [place] [address] Social History Tobacco Use Types Packs/Day Years [...] you attend anabaptism or Patient refused 2021 baptist services? Do [...] Notes Telephone Encounter - Maritza Carrillo - 06/22/2022 12:18 PM CDT [facility] called. The patient had a prescription for Pregabalin sent to one of the [place] pharmacies on 06/17/22 and she never picked it up. [facility] would like the prescription sent to them since they provide the prescriptions to the patient. Please phone or send a new prescription for Pregabalin 300 mg to [facility] in [place]. Please do as soon as able, the patient is out of this medication. Thank you, Maritza [phone] documented in this encounter Plan of Treatment Not on filedocumented as of this encounter Visit Diagnoses Not on filedocumented in this encounter Additional Health Concerns Assessment Noted Time PHQ-9 Depression Total Score: 16 02/11/2021 12:00 AM C DT documented as of this encounter Care Teams Special Events Driver Relationship Specialty Start Date End Date Elsewhere, Pcp PCP - General Family Medicine 12/25/21 documented as of this encounter
--- OUTSIDE RECORDS SUMMARY | 2022-08-01 06:39 | XMS_ITS | Encounter Summary ---
:1965 Author Organization [facility] Address [address] [place] [address] Care Team Providers Name Role Phone Elsewhere, Pcp Primary Care Provider Unavailable Encounter Details Date Type Department Care Team Description 06/17/2022 Anesthesia Event Department of Radiology, Shantell Verma APRN, GINETTE, DNAP [address] [place] [address] [phone] [facility]. [address] [place] [phone] [place] [id number] [place] [phone] Anesthesia Record Procedure Summary Procedure Name Responsible Anesthesia Start Anesthesia Stop Time Anesthesiologist Time MR BRAIN WITHOUT IV Sapphire Verma APRN, ORGAN PIPE FINISHER, 06/17/22 1446 1702 CONTRAST DNAP Events Date Time Event Comment 06/17/2022 1446 An Start Machine/Equipmen t Checked Infection Precautions Foll owed Procedure/Site Verified NPO Sta tus Verified Supine Standard ASA Mon itors Applied 1453 An Induction 1459 An Intubation 1459 Turnover to Proceduralist 1510 Anesthesia Time Out 1512 Image Start 1604 Quick Note MRI scans interf ering with SpO2 reading. Able to get a go od wave form and number in between scans . 1638 Image End 1641 Turnover to ANE Staff 1651 Airway Removal Criteria Met 1651 Extubation/Airway Removed 1652 an stop data 1702 An End I completed my h andoff to the receiving staff during [facility] ch we 1. Identified the patient 2. Ident ified the responsible provider 3. Revi ewed the pertinent medical history 4. Discussed the surgical course 5. Review ed intra-op anesthesia management and i ssues during anesthesia 6. Set expectati ons for post-procedure period 7. Allowe d opportunity for questions and ac knowledgement of understanding. Name Total lidocaine 2% (mg) injection 60 mg propofol 10 mg/mL 200 mg ePHEDrine PF 5 mg/mL syringe injection 10 mg ondansetron 4 mg/2 mL injection 4 mg rocuronium 10 mg/mL injection 100 mg dexamethasone 4 mg/mL injection 8 mg glycopyrrolate 0.2 mg/mL injection 0.2 mg dexmedeTOMIDine 80 mcg/20 mL (4 mcg/mL) in NaCl 0.9% v ial 32 mcg scopolamine base 1 mg over 3 days 1 patch (TRANSDERM S WOOD GANG SAWYER) 1 patch Lactated Ringers Free Drip 850 mL Agents No agents on file. Blood No blood administrations on file. Lines, Drains, and Airways Type Details Placement Removal Wound 05/18/22; 1258; N; 05/18/22 1258 by Incision; Shoulder; Rishi Murillo, R.NBritton Anterior, Left Peripheral IV Placement Date: 06/17/22; 06/17/22 1116 by 06/18 0942 by Placement Time: 1116; Lori Elias, R.N. Raquel Sr, Catheter Size: 20 G; R.N. Orientation: Anterior, Distal, Lower, Right, Lateral; Location: Forearm; Site Prep: Alcohol; Technique: (TCR); Inserted by: MJT; Removal Date: 06/18/22; Removal Time: 941 ETT Placement Date: 06/17/22; 06/17/22 1459 by Luci, 0 06/17/22 1651 by Luci, Placement Time: 1459 NIKKY Leary CRNA, Rafiq heller APRN, CRNA, (created via procedure DNAP DNAP documentation); Mask Ventilation: Easy mask; Type: Standard ETT; Single Lumen Tube Size: 7 mm; Cuffed: Yes; Location: Oral; Grade View: Grade 1; Placement Verification: Bilateral breath sounds, Positive ETCO2, Symmetrical chest wall movement; Removal Date: 06/17/22; Removal Time: 1651 documented in this encounter Social History Tobacco [...] you attend anglican or Patient refused 2021 zoroastrian services? Do [...] encounter OR Notes Anesthesia Postprocedure Evaluation - Maritza Friend, PRODUCTION ASSEMBLY OPERATOR, ORGAN PIPE FINISHER, DNAP - 06/17/2022 5:09 PM CDT Patient: Angie Mosquera Procedure Summary Date: 06/17/22 Room / Location: Department of Radiology, [facility], in [place], [place] Anesthesia Start: 1446 Anesthesia Stop: 170 Procedures: MR BRAIN WITHOUT IV CONTRAST MR LUMBAR SPINE WITHOUT IV CONTRAST MR THORACIC SPINE WITHOUT IV CONTRAST Diagnosis: (r/o posterior sroke) (Rule out cauda equina) (r/o compression) Scheduled Providers: Maritza Friend APRN, CRNA, DNAP Responsible Provider: Sapphire Verma APRN, CRNA, DNAP Anesthesia Type: general ASA Status: 3 Anesthesia Type: general Last vitals Vitals Value Taken Time BP 104/79 06/17/22 1656 Temp Pulse 88 06/17/22 1703 Resp 13 06/17/22 1703 SpO2 90 % 06/17/22 170 Vitals shown include unvalidated device data. Please reference Vitals flowsheet for most recent vital signs. Anesthesia Post Evaluation Patient Disposition: general care unit Cardiovascular status: hemodynamics (HR & BP) acceptable Respiratory status: patent airway with spontaneous effort Temperature: normothermic Oxygen requirements: room air Level of consciousness: awake Pain score: pain adequately controlled and/or at baseline (at baseline) Post Op nausea/vomiting: none Hydration status: euvolemic Anesthesia Procedure Notes - Sapphire Verma APRN, CRNA, DNAP - 06/17/2022 3:12 PM CDTAssociated Order(s): Airway Airway Date/Time: 06/17/2022 2:59 PM Performed by: Sapphire Verma APRN, CRNA, DNAP Authorized by: Sapphire Verma APRN, CRNA, DNAP Care team members present 1. Brian Hunt M.D. Patient location during procedure: OR / Procedure Area PROCEDURE DETAILS: Mask difficulty assessment: easy mask Final airway type: video laryngoscope Laryngeal Manipulation: no Final best view of glottic structures - Cormack/Lehane Score: grade 1 ETT location: oral VL device: glide scope Wel[place] scope blade size: 3 Adult tube size: 7 Adult ETT distance at teeth/gum: 22 Oral tube type: standard ETT Cuffed: yes Airway confirmation: bilateral breath sounds, positive ETCO2 and bilateral chest rise Other previous techniques attempted: none PRE PROCEDURE DETAILS: Pre evaluation for airway management: procedure Urgency: elective Preop assessment of probable difficulty: questionable / suspicious difficult airway Preoxygenation: bag valve mask SEDATION / ANESTHESIA Anesthesia method: anesthesia POST PROCEDURE DETAILS: Procedure outcome: successful Airway event: no complications Anesthesia Preprocedure Evaluation - Brian Hunt M.D. - 06/17/2022 1:05 PM CDT Preprocedure Anesthesia & H&P Assessment Procedure Summary Date/Time: 06/17/22 1400 Scheduled providers: Maritza Friend APRN, CRNA, DNAP Procedures: MR BRAIN WITHOUT IV CONTRAST MR LUMBAR SPINE WITHOUT IV CONTRAST MR THORACIC SPINE WITHOUT IV CONTRAST Indications: r/o posterior sroke Rule out cauda equina r/o compression Location: Department of Radiology, [facility], in [place], [place] Pertinent components of the patient's history [...] Vertebral Artery (HCC) (+) Dissection Vertebral Artery ([facility]) (+) Transient Ischemic Attack MSK/RHEUM (+) Esophageal Motility Disorder (+) Fibromyalgia HEME (+) Anemia Nervous (+) Chronic Pain Syndrome Other (+) Gastric Bypass Status Post (+) Nicotine Dependence Cigarettes (+) Nicotine Dependence Unspecified (+) Opioid Moderate Or Severe Use Disorder (Dependence) Uncomplicated (HCC) (+) Pain Shoulder Left (+) Primary Osteoarthritis Shoulder Left (+) Stroke Cerebrovascular Accident Personal History OBJECTIVE PHYSICAL EXAMINATION Airway (HEENT) Mallampati: II TM Distance: >3 FB Neck ROM: Limited Mouth Opening: >3 cm Cardiovascular Rhythm: Regular Rate: Normal Functional Capacity: >4 METS Pulmonary Pulmonary Assessment: Clear General / Constitutional Constitutional Assessment: Normal General State of Health:: healthy appearing and calm Neurological Neurologic Assessment:??alert and alert and oriented x 3 Dental Dental Assessment: upper dentures and lower dentures ASSESSMENT / PLAN ANESTHESIA PLAN ASA: 3 Anesthesia Plan: general Patient seen and allergies reviewed, anesthesia plan and risks discussed directly with patient /legal guardian or through an supervisor laboratory animal facility. Risks/Benefits/Alternatives of Blood transfusion discussed with patient [...] Associated Comments Diagnosis LDA ANE ENDOTRACHEAL Routine 06/17/2022 2:59 PM R esults for this AIRWAY CDT procedure are i n the results section. documented in this encounter Results LDA ANE ENDOTRACHEAL AIRWAY (06/17/2022 2:59 PM CDT) Narrative Sapphire Verma APRN, CRNA DNAP - 06/17/20 2:59 PM CDT Sapphire Verma APRN, CRNA DNACamelia ? 06/17/2022 ??3:34 PM Airway Date/Time: 06/17/2022 2:59 PM Performed by: Sapphire Verma APRN, CRNA, D NAP Authorized by: Sapphire Verma APRN, CRNA DNAP Care team members present 1. Brian Hunt M.D. Patient location during procedure: OR / Procedure Area PROCEDURE DETAILS: Mask difficulty assessment: easy mask Final airway type: video laryngoscope Laryngeal Manipulation: no ?? Final best view of glottic structures - Cormack/Lehane Score: grade 1 ETT location: oral VL device: glide scope Welaka scope blade size: 3 Adult tube size: [...] successful ?? Airway event: no complications Sapphire Luci PRODUCTION ASSEMBLY OPERATOR, ORGAN PIPE FINISHER, DNAP ANESTHESIA ORDERABLES documented in this encounter Visit Diagnoses Not on filedocumented in this encounter Administered Medications Inactive Administered Medications - up to 3 most recent administrations Medication Order MAR Action Action Date Dose Rate Site dexAMETHasone injection (DECADRON) Given 06/17/2022 3:27 PM CDT 8 mg intravenous, As needed, Starting on Clementine 06/17/22 at 1527, Anesthesia Intra-op dexmedeTOMIDine 80 mcg/20 mL (4 mcg/mL) Given 06/17/2022 4:37 PM CDT 12 mcg injection (PRECEDEX) intravenous, As needed, Starting on Clementine 06/17/22 at 1624, Anesthesia Intra-op Given 06/17/2022 4:30 PM CDT 12 mcg Given 06/17/2022 4:24 PM CDT 8 mcg ePHEDrine (PF) injection Given 06/17/2022 3:54 PM CDT 10 mg intravenous, As needed, Starting on Clementine 06/17/22 at 1554, Anesthesia Intra-op glycopyrrolate injection (ROBINUL) Given 06/17/2022 4:23 PM CDT 0.2 mg intravenous, As needed, Starting on Clementine 06/17/22 at 1623, Anesthesia Intra-op lactated ringers New Bag 06/17/2022 2:50 PM CDT intravenous, Continuous Infusion: Per Instructions PRN, Starting on Clementine 06/17/22 at 1450, Anesthesia Intra-op lidocaine (PF) (cardiac) injection Given 06/17/2022 2:55 PM CDT 60 mg intravenous, As needed, Starting on Clementine 06/17/22 at 1455, Anesthesia Intra-op ondansetron (PF) injection (ZOFRAN) Given 06/17/2022 4:37 PM CDT 4 mg intravenous, As needed, Starting on Clementine 06/17/22 at 1637, Anesthesia Intra-op propofoL injection (DIPRIVAN) Given 06/17/2022 2:56 PM CDT 200 mg intravenous, As needed, Starting on Clementine 06/17/22 at 1456, Anesthesia Intra-op rocuronium injection (ZEMURON) Given 06/17/2022 2:56 PM CDT 100 mg intravenous, As needed, Starting on Clementine 06/17/22 at 1456, Anesthesia Intra-op scopolamine base 1 mg over 3 days 1 patch Given 06/17/2022 4:42 PM CDT 1 patch (TRANSDERM SCOP) 1 patch, transdermal, Administer over 72 Hours, Once as needed, nausea and vomiting, Starting on Clementine 06/17/22 at 1301, For 1 dose, Pre-Op, Contains 1.5 mg to deliver 1 mg/72 hours. documented in this encounter Additional Health Concerns Assessment Noted Time PHQ-9 Depression Total Score: 16 02/11/2021 12:00 AM C DT documented as of this encounter Care Teams Investigations Director Relationship Specialty Start Date End Date Elsewhere, Pcp PCP - General Family Medicine 12/25/21 documented as of this encounter
--- OUTSIDE RECORDS SUMMARY | 2022-08-01 06:39 | XMS_ITS | Encounter Summary ---
:1965 Author Organization [facility] Address [address] [place] [address] Care Team Providers Name Role Phone Elsewhere, Pcp Primary Care Provider Unavailable Reason for Visit Reason Comments Post-op Problem Encounter Details Date Type Department Care Team Description 06/03/2022 Clinical Communication Department of Cyrus Polk st-op Problem Orthopedic Surgery in [place] Souza [place], [place] [address] [place] [address] 200 [place] [phone] Social History Tobacco Use Types Packs/Day Years [...] you attend christian or Patient refused 2021 sabianism services? Do [...] my service so she can be seen. Cyurs Polk M.D. CT CT Job ID: [id number] documented in this encounter Miscellaneous Notes Telephone [...] bent forward again. Please call her at [phone] to discuss. documented in this encounter Plan of Treatment Not on filedocumented as of this encounter Visit Diagnoses Not on filedocumented in this encounter Additional Health Concerns Assessment Noted Time PHQ-9 Depression Total Score: 16 02/11/2021 12:00 AM C DT documented as of this encounter Care Teams Beeswax Bleacher Relationship Specialty Start Date End Date Elsewhere, Pcp PCP - General Family Medicine 12/25/21 documented as of this encounter
--- OUTSIDE RECORDS SUMMARY | 2022-08-01 06:39 | XMS_ITS | Encounter Summary ---
:1965 Author Organization [facility] Address 200 [place] [address] Care Team Providers Name Role Phone Elsewhere, Pcp Primary Care Provider Unavailable Encounter Details Date Type Department Care Team Description 06/17/2022 Orders Only RST HIM Lat[place], Chronic Pain Syndrome (Prima ry Dx); 200 [facility] [place] Transient Ischemic Attack; [place], [place] 200 [facility] Fibromyalgia [phone] [place] [address] Social History Tobacco Use Types Packs/Day Years [...] you attend yazidism or Patient refused 2021 sabianist services? Do [...] as of this encounter Visit Diagnoses Diagnosis Chronic Pain Syndrome - Primary Transient Ischemic Attack Fibromyalgia documented in this encounter Additional Health Concerns Assessment Noted Time PHQ-9 Depression Total Score: 16 02/11/2021 12:00 AM C DT documented as of this encounter Care Teams Director Of Cardiac Rehabilitation Relationship Specialty Start Date End Date Elsewhere, Pcp PCP - General Family Medicine 12/25/21 documented as of this encounter
--- OUTSIDE RECORDS SUMMARY | 2022-08-01 06:39 | XMS_ITS | Encounter Summary ---
:1965 Author Organization [facility] Address [address] [place] [address] Care Team Providers Name Role Phone Elsewhere, Pcp Primary Care Provider Unavailable Reason for Visit Reason Comments Followup [facility] Patient Encounter Details Date Type Department Care Team Description 06/15/2022 Clinical Communication Department of [facility], Robert gay ([facility] Neurology in [place], [place] Patient/) [place], [facility] [address] [place], [place] [address] [place] [phone] [place], [place] [phone] (Work) [phone] Social History Tobacco Use Types Packs/Day Years [...] Telephone Encounter - Monica Shah R.N. - 06/15/2022 3:[address] Diehl, Thank you for the message, patient has apparently sought care in our local emergency department is currently being assessed. Telephone Encounter - Allyssa Amaya - 06/15/2022 8:18 AM CDT Chief Complaint Reason for Call: Patient calls in. Please see details from intake call yesterday. She adds a few notes saying she perhaps is having similar symptoms again today. She said the symptoms won't stop. She asks to be put in the hospital to figure out what is wrong with her. She did end up being seeing in [place] and had a CT scan. I told her to followup with them and make sure that the images are sent here for Dr. Diehl to review. Caller was made aware of the two- to four-business day call turnaround time. Date last seen: 11/17/2021 Future appointment: None scheduled Dx: Stroke Cerebrovascular Accident Personal History Allyssa Amaya, Diet Attendant 06/15/22 8:18 AM CDT documented in this encounter Plan of Treatment Not on filedocumented as of this encounter Visit Diagnoses Not on filedocumented in this encounter Additional Health Concerns Assessment Noted Time PHQ-9 Depression Total Score: 16 02/11/2021 12:00 AM C DT documented as of this encounter Care Teams Barrel Leveler Relationship Specialty Start Date End Date Elsewhere, Pcp PCP - General Family Medicine 12/25/21 documented as of this encounter
--- OUTSIDE RECORDS SUMMARY | 2022-08-01 06:39 | XMS_ITS | Encounter Summary ---
:1965 Author Organization [facility] Address [address] [place] [address] Care Team Providers Name Role Phone Elsewhere, Pcp Primary Care Provider Unavailable Reason for Visit Reason Comments xray results Encounter Details Date Type Department Care Team Description 06/10/2022 Clinical Communication Department of Cyrus Polk xr ay results Orthopedic Surgery in [place] Souza [place], [place] [address] [place] [address] 200 [place] [phone] Social History Tobacco Use Types Packs/Day Years [...] you attend nondenominational or Patient refused 2021 synagogue services? Do [...] Cyrus Polk M.D. CT CT Job ID: [id number] documented in this encounter Miscellaneous Notes Telephone [...] documented as of this encounter Care Teams Woods Laborer Relationship Specialty Start Date End Date Elsewhere, Pcp PCP - General Family Medicine 12/25/21 documented as of this encounter
--- OUTSIDE RECORDS SUMMARY | 2022-08-01 06:39 | XMS_ITS | Encounter Summary ---
:1965 Author Organization [facility] Address [address] [place] [address] Care Team Providers Name Role Phone Elsewhere, Pcp Primary Care Provider Unavailable Encounter Details Date Type Department Care Team Description 06/15/2022 Ancillary Procedure Department of Demarcus Ernst, Radiology in [place], [place] [address] [place] [address] [place] [phone] (Wo rk) Social History Tobacco Use Types [...] you attend caodaism or Patient refused 2021 methodist services? Do [...] Comments Diagnosis INTERPRETATION OF RAD - Routine 06/15/2022 12:26 Resul ts for OUTSIDE CT HEAD (most inpatients PM CDT this pro cedure and all are in the outpatients) results section. documented in this encounter Results Interpretation of Outside CT Spine (06/15/2022 12:27 [...] re and osteopenia. Demarcus NIELSON CT PROCEDURES documented in this encounter Visit Diagnoses Not on filedocumented in this encounter Additional Health Concerns Assessment Noted Time PHQ-9 Depression Total Score: 16 02/11/2021 12:00 AM C DT documented as of this encounter Care Teams Shelter Monitor Relationship Specialty Start Date End Date Elsewhere, Pcp PCP - General Family Medicine 12/25/21 documented as of this encounter
--- OUTSIDE RECORDS SUMMARY | 2022-08-01 06:39 | XMS_ITS | Encounter Summary ---
:1965 Author Organization [facility] Address [address] [place] [address] Care Team Providers Name Role Phone Elsewhere, Pcp Primary Care Provider Unavailable Encounter Details Date Type Department Care Team Description 06/15/2022 Ancillary Procedure Department of Demarcus Ernst, Radiology in [place], [place] [address] [place] [address] [place] [address] [phone] (Wo rk) Social History Tobacco Use Types [...] you attend alevism or Patient refused 2021 faith services? Do [...] Diagnosis INTERPRETATION OF RAD - Routine 06/15/2022 12:27 [...] documented as of this encounter Care Teams Motor Checker Relationship Specialty Start Date End Date Elsewhere, Pcp PCP - General Family Medicine 12/25/21 documented as of this encounter
--- OUTSIDE RECORDS SUMMARY | 2022-08-01 06:39 | XMS_ITS | Encounter Summary ---
:1965 Author Organization [facility] Address [address] [place] [address] Care Team Providers Name Role Phone Elsewhere, Pcp Primary Care Provider Unavailable Encounter Details Date Type Department Care Team Description 05/18/2022 - Hospital Encounter [facility] Mable Polk In fection Of Left Shoulder In Infectious And Parasitic Diseases Classified Elsewhere (HCC) (Primary Dx); 05/20/2022 Hospital, Christianity Cyrus Souza M.D. Shoulder Joint Disorder Left; [place], [facility] [address] [facility] Pain Shoulder Left; Building, [address] [place], [place] Primary Os teoarthritis Shoulder Left Floor [id number] [address] [facility] [phone] [place], [place] (Work) [address] Social History Tobacco Use [...] you attend jainism or Patient refused 2021 caodaism services? Do [...] AM CDT DISCHARGE SUMMARY BRIEF OVERVIEW Hospital: [facility] Discharge Provider: Cyrus Polk M.D. Primary Team: RST Orthopedic Surgery - Jma Primary Care Providers: Elsewhere, Pcp (General) No [...] RST ROEI OR DISCHARGE DISPOSITION Home-Health Care [facility] [6] ACTIVE ISSUES REQUIRING FOLLOW UP This document serves as a prescription to continue physical therapy, medications, and labs or x-raysif ordered/required. If you have any questions or concerns about surgery or upcoming appointments, please do not hesitateto contact Dr. Polk's office at [phone] during regular business hours (8am-5pm M-F). For emergencies on the weekend or after hours, you may contact Dr. Polk's service via the [facility] labeling machine operator at [phone]. Details for your 6 week follow-up appointment [...] to: Cyrus Polk MD Dept of Orthopedics [address], [address] None OUTPATIENT FOLLOW UP For appointment details [...] M.D.Wasserburger, Jory N, M.D.Markos, James R, M.D. [facility] OR Angie Mosquera was taken [...] (ZyrTEC) 10 Take 10 mg by mouth 0 mg tablet daily. clindamycin (CLEOCIN T) Apply 1 application 0 1 % external solution topically 2 (two) times a day. Apply to face. diclofenac sodium Apply 2-4 g topically 0 022 (VOLTAREN) 1 % gel 4 (four) times a day as needed. FLUoxetine (PROzac) 40 Take 80 mg by mouth 0 mg capsule every morning. lamoTRIgine (LaMICtal) Take 200 mg by mouth [...] THC multivit-min/iron/folic/ Take 1 tablet by 0 [id number] (HAIR, SKIN AND mouth daily. NAILS ADVANCED ORAL) oxyCODONE (ROXICODONE) Take 10 mg by mouth 0 01/28 10 mg IR tablet every 4 (four) hours as needed for pain. Per patient uses 4-5 tablets per day usually rOPINIRole (REQUIP) 2 mg Take 2 mg [...] mg capsule 2 (two) times a day. ipratropium-albuteroL Inhale 3 mL by 0 01/16/2021 (DUONEB) 0.5-2.5 mg/3 mL nebulization 4 (four) nebulizer solution times a day as needed for shortness of breath or wheezing. naloxone (NARCAN) 4 Administer 1 spray 0 03/26/20 22 mg/actuation nasal spray into one nostril as directed. SPRAY 0.1 MILLILITER BY INTRANASAL ROUTE IN 1 NOSTRIL MAY REPEAT DOSE EVERY 2-3 MINUTES NEEDED ALTERNATING NOSTRILS polyethylene glycol Take 17 g by mouth as 0 04/11 (MIRALAX) 17 gram/dose needed for oral powder constipation. rizatriptan (MAXALT) 10 Take 1 tablet by 0 2021 mg tablet mouth as directed. May repeat every 2hrs as needed (Max 30mg/24hrs) SUMAtriptan (IMITREX) 5 1-2 sprays as needed. 0 0 04/24/2022 mg/actuation nasal spray acetaminophen (TYLENOL) Take 2 capsules 0 022 06/21/2022 500 mg capsule (1,000 mg total) by mouth every 6 (six) hours as needed for pain. Start the day of surgery. cholecalciferol (VITAMIN Take 125 mcg by mouth 0 06/25/2022 D3) 125 mcg (5,000 Unit) every morning. tablet cyanocobalamin, vitamin Take 1 tablet by 0 202106/21/2022 B-12, 2,500 mcg lozenge mouth daily. diazePAM (VALIUM) 10 mg Take 10 mg by mouth 2 0 0 02/14/2019 06/17/2022 tablet (two) times a day as needed. diphenhydrAMINE Take 75 mg by mouth 0 06/17/2022 (BENADRYL) 25 mg tablet at bedtime. esomeprazole (NexIUM) 40 Take 40 mg by mouth 0 06/17/[address] capsule every morning before breakfast. furosemide (LASIX) 40 mg Take 40 mg by mouth 2 0 02/08/2019 06/17/2022 tablet (two) times a day. Per patient usually takes daily pregabalin (LYRICA) 300 Take 600 mg by mouth 0 06/17/2022 mg capsule 2 (two) times a day. QUEtiapine (SEROquel) 50 Take 50 mg by mouth 0 06/17/2022 mg tablet at bedtime. traMADoL (ULTRAM) 50 mg Take 1 tablet (50 mg 24 tablet 0 06/17/2022 tabletIndications: Acute total) by mouth every Pain, Acute Pain 6 (six) hours as Exception needed for severe pain or score 7-10 of 10 Indications: Acute Pain, Acute Pain Exception. ondansetron ODT Take 1 tablet by 0 01/16/2010 (ZOFRAN-ODT) 8 mg mouth 3 (three) times disintegrating tablet a day as needed for nausea. oxyCODONE (ROXICODONE) 5 Take 1 tablet (5 mg 30 tablet 0 06/16/2022 mg immediate release total) by mouth every tabletIndications: Acute 4 (four) hours as Pain, Acute Pain needed for severe Exception pain or score 7-10 of 10 Indication: Acute Pain, Acute Pain Exception. documented as of this [...] mask during therapy session: yes Outcome Measures -[facility] Inpatient Short Form: -[facility] Basic Mobility (V.2) How much [...] 3-5 steps with a railing?: A Little AM-[facility] Basic Mobility (V.2) Raw Score: 18 AM-[facility] Basic Mobility (V.2) Standardized Score: 41.05 Interpretation: Clinicians answer the -[facility] Inpatient Short Form based on [...] Time (min): 27 min Jey Harper P.T., Juice.P.T. Kaushik Cadena M.D. - 05/20/2022 7:31 AM [...] 6 pm, please page Jam service at [phone] For urgent matters from 6 pm until 6 am, please page [facility] [phone] Jane Nguyen PharmBrittonD., R.Ph. - 05/19/2022 8:12 AM CDT Pharmacist [...] at this time. Jane Nguyen Pharm.D., R.Ph. [phone] Kaushik Cadena M.D. - 05/19/2022 7:34 AM [...] 6 pm, please page Jam service at [phone] For urgent matters from 6 pm until 6 am, please page Ortho [facility] at [facility] [phone] Paco Valentine - 05/18/2022 9:47 AM CDT Encounter: AM Admit Deanna Tradition: No caodaism affiliation. Ms. Mosquera did not express any spiritual needs at this time. Plan: Will remain available for spiritual care as needed or requested. [phone] ([facility] Rodrigo Preston, Mynor, R.Ph. - [...] Status: Pharmacy Complete Set By: Rodrigo Preston, Dann.Juice., R.Ph. at 05/18/2022 9:16 AM Taking? Last [...] Take 150 mg by mouth every morning. owhhrczzcc-puzfrjtwrrovs-elqt (ESGIC) 50-325-40 mg per tablet Past Week [...] 1 spray as needed. 5 mg THC multivit-min/iron/folic/jeh362 (HAIR, SKIN AND NAILS ADVANCED ORAL) Past [...] (HCC) ??? Nicotine Dependence Unspecified ??? Other Penitentiary Current Drug Therapy ??? Direct Infection Of [...] Profile Lives With: Alone Receives Help From: arcade attendant, Family, Friend(s) ADL Assistance: Required assistance ADL Assistance Comments: Gets help from [employer] for her bath/shower 3x/week, and for her meals IADL/Homemaking Assistance: Required assistance IADL/Homemaking Assistance Comments: Gets help for housecleaning Driving: Does not drive Driving Comments: takes her cane and medical alert with her. Occupational Role: On disability Occupational Role Comments: Previously worked at a [employer] Prior Mobility/Functional Transfers Level of Green: Needs assistance Previous Transfer/Mobility Assistance Comments: Patient [...] mask during therapy session: yes Outcome Measures AM-[facility] Inpatient Short Form: AM-PAC Basic Mobility (V.2) [...] 3-5 steps with a railing?: A Little -[facility] Basic Mobility (V.2) Raw Score: 18 -[facility] Basic Mobility (V.2) Standardized Score: 41.05 Interpretation: Clinicians answer the -[facility] Inpatient Short Form based on [...] 33 min Jey Harper P.T., D.P.T. Roland Hall, R.N. - 05/19/2022 11:40 AM CDTAssociated Order(s): IP CONSULT TO CARE MANAGEMENT; IP CONSULT TO CARE MANAGEMENT Discharge Planning Assessment SUBJECTIVE Assessment Information Referral Source: Nurse Referral Reason: Discharge Planning Primary Language: Czech Forest Nursery Supervisor Services Used: No Person(s) present during interview: Person(s) Present During Interview: patient History of Present Illness #1 Primary Osteoarthritis Shoulder Left Social History Support System: children, shoe caser/psych social worker, friends/neighbors and home care staff [...] Calm, Oriented Communication: Talks, Understands speaking, Understands Czech Shopping: Needs assistance Transportation: Support from family Medication Management: Needs assistance Housekeeping: Needs assistance Meal Prep: Needs assistance Managing Finances: Independent Assistive Devices: Grab bars - wall, Eyeglasses Services/Resources: Other (comment) Agency Name: [facility] Provided: [facility] services 3x/week, nurse visits every other week Baseline Services/Resources Primary care clinic and provider: [facility] Phone: Fax: Anticipated Needs Functional Status: Transfer to/from bed, chair, etc., Bathing, Dressing, Grooming/hygeine, Housekeeping, Shopping, Meal preparation, Mobility, Medication set-up/administration, Transportation use (drive car, use taxi/bus) Services/Resources: Other (comment) Agency Name: [facility] Provided: [employer] services 3x/week, nurse visits every other week Transportation Needs: Support from family Does the patient need discharge transport arranged?: No Ride and Caregiver Arranged: Yes Anticipated Discharge Destination: Home-Health Care [facility] ASSESSMENT / PLAN Assessment: The concrete bucket unloader met with Angie Mosquera to discuss her current hospitalization and home goingneeds. The patient was unaccompanied. The patient was a reliable historian. The role of concrete bucket unloader was reviewed. The patient reviewed her prior level of care and support system. The patient receives support from her son, friends and home care staff. Patient reported her son lives in the same apartment as her. She also stated getting [employer] services 3x/week and a nurse visits her every other week. The patient described her living environment as a two bedroom apartment. Housekeeping, grocery shopping, meal prep, and other household responsibilities have previously been completed by patient, patient's son and patient's caregiver(s). concrete bucket unloader discussed the patient's potential needs at [facility] based on their home setting, previous needs and responsibilities, homebound status, and relevantassessments with the patient. The patient will be safe and supported to return home with [facility] or previous services noted above when medically ready. Support will be provided by son, friends and home care staff. The patient demonstrated understanding when discussing her home going plans and anticipated needs. At this time, the care team anticipates the patient requires the following service(s) to be reconnected: home healthcare. The patient identified the following as their current vendor(s): [facility]. During this visit patient verbalized she is hoping to increase her [employer] hours and also inq uired about getting a scooter to assist in her mobility. Patient went on to share she is unstable attimes due to her stroke history. She thought perhaps her neurology doctor would be able to help her get a scooter. RN ROWAN recommended she follow up with the [facility] in regards to wanting more [facility] hours. She was also recommended to follow up with her primary care provider to provide durable medical equipment justification for a scooter, as she is currently hospitalized for orthopedic surgery. Patient verbalized understanding. Patient informed RN CM would be reconnecting her [facility] services and nurse visits with [facility]. Patient agreeable to RN CM completing this and even provided RN CM the name and contact of her [employer] and RN. After reviewing the patient's chart and meeting with the patient, the concrete bucket unloader deemed the LACE+/readmission questions were not necessary. The patient reports understanding that she will dismiss from the hospital when medically stable. Pending hospital course and medical readiness, no barriers to dismissal have been identified at this time. Plan: Patient to discharge with home health care. [facility] Contact: RADHA Palomino ATTN: Georgette NURSING: - [...] directive. PRIMARY SERVICE: - Please provide a non-[facility] health order for resumption of previous services [...] dismissal will be provided by family. 3. concrete bucket unloader recommended reaching out to family, friends, and neighbors for assistance. 4. concrete bucket unloader provided information regarding the dismissal process. 5. concrete bucket unloader placed or requested the following hospital-based consult orders and/or referrals:None. 6. concrete bucket unloader will continue to assess for homegoing needs with the interdisciplinary team. 7. concrete bucket unloader encouraged the patient to reach out with [...] falls. Patient will discharge to home with [facility] reconnect. Identify possible barriers to meeting goals/advancing plan of care: none End of Shift Summary: Patient stayed on schedule with prn pain meds (Tramadol and oxycodone) throughout the shift. Encouraged using ice packs to help with pain and swelling. Patient's primapore dressing was changed to Aquacell AG and is clean, dry and intact. 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 Patient expects RN from [facility] to visit on Tuesday, May 24. Patient's friend will transport home. Medications including: oxycodone and tramadol were picked up [facility]. documented in this encounter OR Notes Op Note - Cyrus Polk M.D. - 05/18/2022 5:54 PM CDT STAFF: Cyrus Polk M.D. RESIDENT: Jenna Zaldivar M.D. PRE-OPERATIVE DIAGNOSIS Left dislocated reverse arthroplasty. POST-OPERATIVE DIAGNOSIS Left dislocated reverse arthroplasty. A family practice physician assistant actively participated and was necessary for [...] glenosphere, placement new humeral stem and tray, [id number] Cyrus Polk M.D. CT CT Job ID: [id number] documented in this encounter Miscellaneous Notes Hospital Course - Kaushik Cadena M.D. - 05/19/2022 12:18 PM CDT Surgery Information This Encounter Past Procedures (05/19/2021 to Today) Date Procedures Providers Location 05/18/2022 ARTHROPLASTY REPLACEMENT TOTAL SHOULDER. Cyrus Polk M.D.Wasserburger, Jory N, M.D.Markos, James R, M.D. [facility] OR Angie Mosquera was taken to [...] with Differential, Blood (05/20/2022 3:43 AM CDT) [facility] Method Time Signature Hemoglobin 8.4 (L) [...] [facility] - [address] [place], [place] [address] [facility] [place] [address] Laboratories[facility] [address] [facility] (ABNORMAL) CBC with Differential, Blood (05/19/2022 3:26 AM CDT) [facility] gist Method Time Signature Hemoglobin 7.6 [...] Number [facility] - [address] [place], [place] [address] [facility] [place] [address] [facility] [address] [facility] (ABNORMAL) Basic Metabolic Panel (05/19/2022 3:26 [...] DTL Nitrogen), S mg/dL 4:38 AM CDT Creatinine 0.70 0.59 - 05/19/2022 DTL 1.04 mg/dL 4:38 AM CDT eGFR-Non >90 >=60 05/19/2022 DTL Black/ mL/min/BSA 4:38 AM CDT Maldivian Comment: ----ADDITIONAL INFORMATION---- Estimated GFR calculated using [...] [facility] [address] [place], [place] [address] [facility] [place] [address] [facility] [address] DX Shoulder Left 1 View (05/18/2022 2:11 [...] in alignment. Negative for postoperative purposes. Jenna [facility] Surgical Pathology, Frozen Lab (05/18/2022 1:04 PM CDT) Component Value Ref Test Analysis Performed At [facility] Range Method Time Signature 05/20/2022 METH 11:46 [...] for acute inflammation. CDT Signed by Katelynn Dsouaz M.D. 05/20/2022 11:46 AM Gross Description A. [...] [facility] - [address] [place], [place] [address] [facility] [place] [address] [facility] [address] Bacteria Cult, Aerobe / Anaerobe+Susc (05/18/2022 1:03 PM CDT) [facility] gist Method Time Signature Bacteria Cult, No growth 06/01/2022 DTL Aerobe/Anaerob after 14 6:02 PM CDT e+Susc days of incubation. Specimen Anatomical Collection Method Collection Time Receive d Time (Source) Location / / Volume Laterality Shoulder, Left 05/18/2022 1:03 PM 022 5:21 CDT PM CDT Comment: Specimen Source Site: Tissue #1 Narrative [facility] - [facility] - 06/01/2022 6:02 PM CDT Bacterial Culture: Placed in Bactec aero bic and Bactec anaerobic bottles Cyrus Polk M.D. LAB MICROBIOLOGY - GENERAL O MARY Performing Organization Address City/[facility]/ZIP Code Phon e Number [facility] - [address] [place], [place] [address] [facility] [place] [address] [facility] [address] [facility] Bacteria Cult, Aerobe / Anaerobe+Susc (05/18/2022 1:03 PM CDT) [facility] Method Time Signature Bacteria Cult, No growth 06/01/2022 DTL Aerobe/Anaerob after 14 6:02 PM CDT e+Susc days of incubation. Specimen Anatomical Collection Method Collection Time Receive d Time (Source) Location / / Volume Laterality Shoulder, Left 05/18/2022 1:03 PM 022 5:12 CDT PM CDT Comment: Specimen Source Site: Tissue #3 Narrative [facility] - 06/01/2022 6:02 PM CDT Bacterial Culture: Placed in Bactec aero bic and Bactec anaerobic bottles Cyrus Polk M.D. LAB MICROBIOLOGY - GENERAL O MARY Performing Organization Address City/[facility]/ZIP Code Phon e Number [facility] - [address] [place], [place] [address] [facility] [place] [address] Bacteria Cult, Aerobe / Anaerobe+Susc (05/18/2022 1:03 PM CDT) [facility] Method Time Signature Bacteria Cult, No growth 06/01/2022 DTL Aerobe/Anaerob after 14 6:02 PM CDT e+Susc days of incubation. Specimen Anatomical Collection Method Collection Time Receive d Time (Source) Location / / Volume Laterality Shoulder, Left 05/18/2022 1:03 PM 022 5:07 CDT PM CDT Comment: Specimen Source Site: Tissue #2 Narrative [facility] - 06/01/2022 6:02 PM CDT Bacterial Culture: Placed in Bactec aero bic and Bactec anaerobic bottles Cyrus Polk M.D. LAB MICROBIOLOGY - GENERAL O MARY Performing Organization Address City/[facility]/ZIP Code Phon e Number [facility] - [address] [place], [place] [address] [facility] [place] [place] [address] [facility] [address] [facility] documented in this encounter Visit Diagnoses [...] 05/19/2022 05/20/2022 acetaminophen tablet 1,000 mg (TYLENOL) 0117 (Given - Provider: Corrie Toscano RBrittonN.)9601 (Given - Provider: Catalina B Mccloud, R.N.) 0511 (Given - Provider: Catalina Mccloud RRebekah.)1153 (Given - Provider: Isaura Vu R.N.)1725 (Given - Provider: Candace Lanza, JonnyS.N., R.N., O.C.N.) 0125 (Given - Provider: Jonny PérezSBrittonN., R.N.)0552 (Given - Provider: Jere Levy R.N.)1206 (Given - Provider: Kennedi Jensen R.N.) 1,000 mg, oral, Every 6 hours, [...] (Given - Prov ider: Bettie Macias R.N.) 222 (Given - Provider: Candace Lanza, M.S.N., R. N., O.C.N.) 80 mg, oral, Daily at bedtime, First dose on Tue05/18/22 at 2100 buPROPion XL 24 hr tablet 150 mg (WELLBUTRIN XL) 0849 (Given - Provider: Isaura Vu R.N.) 0908 (Given - Provider: Isaura Vu R.Milad) 150 mg, oral, Every morning, First dose on Tue05/19/22 at 0900, Swallow whole. Do NOT crush, chew, or split tablet. ceFAZolin in dextrose (iso-os) IVPB 2 g (ANCEF) (COMPL ETED) 2048 (New Bag - Provider: Bettie Macias R.N.) 337 (New Bag - Provider: Catalina claudio RBetsy) [...] 1240 (Given - Provider: Ihsan Townsend APRN, DRAMATIC ARTS HISTORIAN) 2,000 mg (rounded from 1,652.5 mg = [...] Isaura Vu R.N.)1725 (Not Given - Provider: Candace Lanza, Carole.S.N., R.N., O.C.N. - Reason: Contraindicated - Comment: [...] Vu R.N.)2225 (Given - Provider: Candace Lanza, Carole.S.N., R.N., O.C.N. - Comment: pt request) 0909 [...] pantoprazole DR tablet 40 mg (PROTONIX) (CANCELED) 611 (Given - Provider: Catalina Mccloud R.N.) 40 [...] at 2100 pregabalin capsule 600 mg (LYRICA) 0857 (Given - Provider: Isaura Vu R.N.)2224 (Given - Provider: Jonny ThorneSRebekah., R.N., O.C.N. - Comment: pt request) 09 (Given - Provider: Isaura Vu R.N.) 600 mg, oral, 2 times daily, First dose (after last modification) on Tue05/19/22 at 0900 QUEtiapine tablet 50 mg (SEROquel) 2051 (Given - Provi marquis: Bettie R Gilberto, R.N.) 222 (Given - Provider: Candace guerra M.S.N., R.N., [...] 2051 (Given - Provider: Bettie Macias R.N.) 0849 (Given - Provider: Isaura Vu R.N.)2224 (Given - Provider: Leticia Thorne, R.N., O.C.N. - Comment: pt request) 0908 (Given - Provider: Isaura Vu R.N.) 1 tablet, oral, 2 times daily, First dos e on Tue05/18/22 at 2100, Do not give if patient has diarrhea. tranexamic acid in NaCl IVPB 1,000 mg (CYKLOKAPRON) (C OMPLETED) 1240 (Given - Provider: Ihsan Townsend APRN, DRAMATIC ARTS HISTORIAN) 1,000 mg (1 g), intravenous, at 300 [...] 2051 (Given - Pro vider: Bettie Macias RBetsy) 0848 (Given - Provider: Isaura Vu RBetsy)2224 (Given - Provider: Leticia Thorne, R.N., O.C.N. - Comment: pt request) 0907 (Given - Provider: Isaura Vu R.N.) 300 mg, oral, 2 times daily, First dose on Tue05/18/22 at 2100, Swallow whole. Do NOT crush, chew or open capsule. Continuous Medication Order 05/18/2022 05/19/2022 05/20/2022 lactated ringers 1622 (Continued from OR - Provider: Corrie hui RBrittonNBritton) 75 mL/hr, intravenous, Continuous, Start ing on Tue05/18/22 at 1615, Until patient has 500cc po intake lactated ringers 1405 (Continued from OR - Provider: Eve barrientos R.NBritton) 20 mL/hr, intravenous, Continuous, Start ing [...] Catalina Mccloud, R.N.)2233 (Given - Provider: Candace A Loveless, M.S.N., R.N., O.C.N.) 100 mg, oral, 3 [...] (TUMS) 1015 (Given - Provider: Isaura Vu R.N.)1957 (Given - Provider: Melissa Garcia R.N.)2241 (Given - Provider: Jonny ThorneS.N., R.N., O.C.N.) 400 mg of calcium, oral, Every 2 hour CA N, indigestion, Starting on Tue05/18/22 at 1608, [...] (DECADRON) 1508 (Canceled Entry - Provider: Isaura Vu R.N.) 4 mg, intravenous, Once as needed, nause [...] (BENADRYL) 1738 (Given - Provider: Corrie Toscano R.N.) 0504 (Given - Provider: Catalina Mccloud R.N.) 092 1 (Given - Provider: Isaura Vu R.N.) 25 mg, oral, Every 6 hours PRN, itching, Starting on Tue05/18/22 at 1722 fentaNYL injection 25 mcg (SUBLIMAZE) (CANCELED) 1121 (Given - Provider: Cristy Rosario R.N.) 25 mcg, intravenous, Every 2 min [...] (CANCELED) 1416 (Given - Provider: Eve Smith R.N.)1423 (Given - Provider: Eve Smith R.N.)1430 (Given - Provider: Eve Smith R.N.)1437 [...] 1 416 (Given - Provider: Eve Smith R.N.) 1 mg, intravenous, Once as needed, [...] mg (DILAUDID) 2241 (Given - Provider: Jonny ThorneSBrittonN., R.N., O.C.N.) 0.2 mg, intravenous, Every 2 hour PRN, s evere pain or score 7-10 of 10, Starting on Tue05/18/22 at 2303 lactated ringers (COMPLETED) 1120 (New Bag - Provider: Cristy Rosario RBrittonNBritton) 20 mL/hr, intravenous, Once as needed, t [...] mg (ZOFRAN) 2123 (Given - Provider: Jere T Levy, R.N.) 1502 (Given - Provider: Kiana Ramírez RBrittonNBrtiton) 4 mg, intravenous, Every 6 hours PRN, na usea, vomiting, Starting on Tue05/18/22 at 1608, For 48 hours, Reassess for nausea or vomiting after at least 10 minutes. If nausea or vomiting persists administe r next ordered antiemetic medications (o rder for antiemetic medication administration ondansetron then haloperidol then promethazine). ondansetron (PF) injection 4 mg (ZOFRAN) (CANCELED) 15 02 (Given - Provider: Viktoriya Land RBrittonNBritton) 4 mg, intravenous, Every 6 hours PRN, na usea, vomiting, (If patient has not received in the previous 6 hours), Starting on Tue05/18/22 at 1414, PACU (only), Administer first. If nausea and vomiting pers ists, proceed with haloperidol. (order o f antiemetic administration - ondansetron then haloperidol then granisetron) oxyCODONE IR tablet 10 mg (ROXICODONE) (CANCELED) 1738 (Given - Provider: Corrie Toscano RBetsy)2339 (Given - Provider: Catalina Mccloud RBrittonNBritton) 0339 (Given - Provider: Catalina Mccloud RBrittonN.)0742 (Given - Provider: Catalina Mccloud RBrittonN.)1153 (Given - Provider: Isaura Vu RBetsy) 10 mg, oral, Every 4 hours PRN, [...] 1) 1600 (Given - Provider: Isaura Vu R.N.)2005 (See Alternative - Provider: Melissa Garcia R.N.) 123 (See Alternative - Provider: Jonny PérezS.NBritton, R.N.)0552 (See Alternative - Provider: Jere Levy R.N.)1004 (See Alternative - Provider: Isaura Vu R.N.)1406 (See Alternative - Provider: Isaura Vu R.N.) 10 mg, oral, Every 4 hours PRN, moderate pain or score 4-6 of 10, Starting on Tue05/19/22 at 1344, If patient is >75 consider changing to 2.5-5mg scale oxyCODONE IR tablet 15 mg (ROXICODONE)(Linked Group 1) 1600 (See Alternative - Provider: Isaura Vu R.N.)2004 (Given - Provider: Melissa Garcia R.N.) 123 (Given - Provider: Rafal Waller M.S.NBritton, R.N.)0552 (Given - Provider: Jere Levy R.N.)1004 (Given [...] over 3 days 1 patch (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 WOOD) (CANCELED) 1118 (Medication Applied - Provider: Cristy [...] ( See Alternative - Provider: Bettie Macias R.N.) 0612 (Given - Provider: Catalina lerma R.N.)1209 (Given - Provider: Isaura Vu RBetsy) 0124 (Given - Provider: Rafal Waller, M.S.N., R.N.)0732 (Given - Provider: Isaura Vu R.N.)1359 [...] R.N.) 0124 (See Alternative - Provider: Rafal Waller, M.S.N., R.N.)0732 (See Alternative - Provider: Isaura Vu [...] documented as of this encounter Care Teams Chip Person Relationship Specialty Start Date End Date Elsewhere, Pcp PCP - General Family Medicine 12/25/21 documented as of this encounter
--- OUTSIDE RECORDS SUMMARY | 2022-08-01 06:39 | XMS_ITS | Encounter Summary ---
:1965 Author Organization [facility] Address [address] [place] [address] Care Team Providers Name Role Phone Elsewhere, Pcp Primary Care Provider Unavailable Reason for Referral Outpatient (Routine) - Authorized Specialty Diagnoses / Procedures Referred By Contact Refer red To Contact Diagnoses Weakness General Pain Back Ataxia Repeated Falls Debility Primary Osteoarthritis Shoulder Left 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 Stroke Cerebrovascular Accident Personal History Fusion Cervical Spine Status Post Maira Haynes Fibromyalgia Chronic Pain Syndrome Cerebral 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 (HCC) M.DBritton [address] [place], [place] [address] Referral ID Status Reason Start Date Expiration Date Visits V isits Requested Authorized [id number] Authorized 06/17/2022 06/17/2023 1 1 Physical Therapy (Routine) - Authorized Specialty Diagnoses / Procedures Referred By Contact Refer red To Contact Pinion Sorter Diagnoses Weakness General Pain Back Ataxia Repeated Falls Debility Primary Osteoarthritis Shoulder Left 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 Stroke Cerebrovascular Accident Personal History Fusion Cervical Spine Status Post Maira Haynes, Fibromyalgia Chronic Pain Syndrome Cerebral 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 (HCC) MBrittonDBritton [address] [place] [address] Referral ID Status Reason Start Expiration Visits Visits Date Date Requested Authorized [id number] Authorized Patient 06/17/2022 06/17/2023 99 99 Preference Reason for Visit Reason Comments Weakness - Generalized Encounter Details Date Type Department Care Team Description 06/15/2022 - [facility] Scooter Tony, NIKKY, C.N.P. [address] [place] [id number] Weakness General (Primary Dx); 06/18/2022 Encounter [facility], Neftali García M.D. [address] [place] [phone] Incontinence Urinary; [facility], Saul Pollard M.D. [address] [place] [address] Pain Back; Domitilla Ataxia; Building, Third Repeated Fal ls; Floor Debility; [address] [facility] Primary Osteoarthritis Shoul marquis Left; [place], [place] Ataxia From [facility] Cerebrovascular Accident; [id number] Stroke Cerebrovascular Accid ent Personal History; [phone] Fusion Cervical Spine Status Post; Fibromyalgia; Chronic Pain Sy ndrome; Cerebral Infarc tion Due To Embolism Right Vertebral Artery (HCC); Decline Functio nal Status [R53.81 (ICD-10-CM)] Social History Tobacco Use Types Packs/Day Years [...] you attend episcopalian or Patient refused 2021 scientologist services? Do [...] Mass Index 28.33 06/16/2022 1:23 AM CDT documented in this encounter Discharge Summaries Saul Pollard M.D. - 06/18/2022 10:55 AM CDT I saw and evaluated the patient, participating in the dodson portions of the service. I reviewed the resident/fellow???s note. I agree with the resident/fellow???s findings and plan. Ms. Mosquera is doing well today. It was late in the day by the time she completed her MRI's yesterday. Fortunately, the MRI does not show any acute changes. The patient is stable for discharge today. She is supposed to meet with a pharmacist for comprehensive evaluation of her medications on 06/21. Shewill follow up with her PCP as well. Saul Pollard M.D. Kiran Melton M.D. - 06/18/2022 8:39 AM CDT DISCHARGE SUMMARY BRIEF OVERVIEW Hospital: [facility] Discharge Provider: Saul Pollard M.D. Primary Team: [facility] Medicine ([facility]) Primary Care Providers: Elsewhere, Pcp (General) No address on file Primary Care Provider Phone Number: None Primary Care Provider Fax Number: None Admission Date: 06/15/2022 Discharge Date: 06/18/2022 PRINCIPAL DIAGNOSIS Weakness General SECONDARY DIAGNOSES Principal Problem: Weakness General DISCHARGE DISPOSITION Home-Health Care [facility] [6] ACTIVE ISSUES REQUIRING FOLLOW UP Please follow-up with your PCP about your medication list. We are worried that some of your symptomsmay be due to different medications and interactions. We did not find anything acute or emergent during your time in the hospital that could explain your symptoms. Your PCP visit has been scheduled for 06/28/22 OUTPATIENT FOLLOW UP Scheduled Appointments 06/21/2022 11:00 AM PHR PHARMACIST [address] [place] [address] Pharmacy For appointment details refer to your Patient Appointment Guide. TEST RESULTS PENDING AT DISCHARGE Pending Labs Order Current Status Basic Metabolic Panel In process DETAILS OF HOSPITAL STAY REASON FOR ADMISSION Pain Back Weakness General Incontinence Urinary Ataxia Repeated Falls HOSPITAL COURSE Ms. Mosquera is hospitalized on [facility] Medicine ([facility]) for evaluation and management of Weakness General. 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 Patient states the combination of headaches, blurry , and dizziness have led to ataxia and difficulty with mobility. She has an extensive history of falls, and states she falls on average 15 days a month multiple times a day. Over the past 6 weeks she has noted a dramatic increase in amount of falls. She can not think of any precipitating factor. No recent head injury or loss of consciousness. She denies any recent medication changes. Upon arrival to the ED, she was afebrile with otherwise normal vitals. CT head at outside hospital with no acute intracranial findings. Hip x-ray with moderate bilateral hip osteoarthritis and left hipchondrocalcinosis. Lumbar spine x-ray with lower lumbar posterior decompression and multilevel degenerative disc and facet disease. Epidural stimulator in place at T7/T8. CT neck angiogram stable showing embolization with occlusion of VG segment of right vertebral artery for prior V3 for dissection and stable small left paraclinoid ICA aneurysms. Neurology was consulted for initial concern of cauda equina syndrome (urinary incontinence, subjective decreased rectal tone in ED) but found no evidence on history or exam. CT head at outside hospitalwith no acute intracranial findings. Hip x-ray with moderate bilateral hip osteoarthritis and left hip chondrocalcinosis. Lumbar spine x-ray with lower lumbar posterior decompression and multilevel degenerative disc and facet disease. Epidural stimulator in place at T7/T8. CT neck angiogram stable showing embolization with occlusion of VG segment of right vertebral artery for prior V3 for dissection and stable small left paraclinoid ICA aneurysms. MRI brain, thoracic and lumbar was reviewed by radiology for acute changes before discharge but she was discharged before the formal read was completed. She has close PCP follow up on Jun 28. Patient's presentation is multifactorial and likely all due to chronic conditions (ataxia, headaches, blurry vision, dizziness). She is not endorsing any new or worsening symptoms aside from an increase in the frequency of falls. 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 Combining that with polypharmacy, patient likely has very poor mobility and balance. Notable home meds include Wellbutrin, fluoxetine, lamotrigine, pregabalin, zonisamide, oxycodone, and tramadol. Notably, her pregabalin as 600 mg b.i.d., a typical max dose is 450 mg daily. Unable to find indications for several medicines this patient is taking. The patient has no history of seizures,and it appears she is possibly on Lamictal for mood stabilization. Also have not found an indicationfor Zonegran. Maybe possibly using off-label for falls, however unclear. Previous notes say indication may be due to antipsychotic induced weight gain. Patient would benefit from outpatient pharmacy and medication review. She did not wish for major changes to her medication however would recommend decreasing centrally acting medications. Patient was discharged in stable condition on 06/18/22. Discharge Exam: General: Patient is no apparent distress., well-groomed, and sitting in bed.. CV: Regular rate and rhythm with normal S1 and S2. No murmurs, rubs, or gallops. Lungs: Clear to auscultation bilaterally. Abdomen: Soft, non-tender, and non-distended. No masses. No rebound/guarding. No hepatosplenomegaly.Bowel sounds present. Skin/MSK: Skin warm, dry, and well perfused. No rashes or other lesions. No swollen or erythematous joints. CONSULTS ORDERED DURING THIS ADMISSION IP CONSULT TO NEUROLOGY IP CONSULT TO PAIN MEDICINE IP CONSULT TO CARE MANAGEMENT CONDITION AT DISCHARGE stable Discharge instructions were provided to the patient and caregiver(s). Saul Pollard M.D. - 06/17/2022 2:26 PM CDT I saw and evaluated the patient, participating in the dodson portions of the service. I reviewed the resident/fellow???s note. I agree with the resident/fellow???s findings and plan. Ms. 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 She presented to the hospital for weakness, urinary incontinence, falls, headache, vision changes with blurry vision. She lives at home alone. Many of these symptoms have been ongoing, and after speaking with the patient she gives several different time frames in terms of the duration of these symptoms. She has an extensive medication list with many many centrally acting medications or medications thatcould be contributing to her symptoms. She shares that she has had this regimen for a long period oftime. Some of these medications are past their maximum doses - such as Lyrica. The patient is very adamant that this is her chronic medication list. She does not want to change any of her meds or adjust her doses for right now. We will recommend reducing Lyrica to 300 mg bid, discontinuing diazepam, and stopping tramadol for now to reduce dizziness and falls. Ultimately we hope for the patient to have a pharmacy review as outpatient of all her medications. Otherwise we are resuming her home health with home PT and OT. The patient does not want to transition to a assisted facility currently. She will be stable to discharge once her MRI of the brain and spine results are back and if they are not concerning. Saul Pollard M.D. Maira Haynes M.D. - 06/17/2022 2:07 PM CDT DISCHARGE SUMMARY BRIEF OVERVIEW Hospital: [facility] Discharge Provider: Saul Pollard M.D. Primary Team: [facility] Medicine 4 ([facility]) Primary Care Providers: Elsewhere, Pcp (General) No address on file Primary Care Provider Phone Number: None Primary Care Provider Fax Number: None Other Providers: Admission Date: 06/15/2022 Discharge Date: 06/17/22 PRINCIPAL DIAGNOSIS Weakness General SECONDARY DIAGNOSES Principal Problem: Weakness General Resolved Problems: * No resolved hospital problems. * DISCHARGE DISPOSITION Home-Health Care c [6] ACTIVE ISSUES REQUIRING FOLLOW UP Please follow-up with your PCP about your medication list. We are worried that some of your symptomsmay be due to different medications and interactions. We did not find anything acute or emergent during your time in the hospital that could explain your symptoms. Your PCP visit has been scheduled for 06/28/22 OUTPATIENT FOLLOW UP For appointment details refer to your Patient Appointment Guide. TEST RESULTS PENDING AT DISCHARGE Pending Labs None DETAILS OF HOSPITAL STAY REASON FOR ADMISSION Pain Back Weakness General Incontinence Urinary Ataxia Repeated Falls HOSPITAL COURSE Ms. Mosquera is hospitalized on [facility] Medicine 4 ([facility]) for evaluation and management of Weakness General. 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 Patient states the combination of headaches, blurry , and dizziness have led to ataxia and difficulty with mobility. She has an extensive history of falls, and states she falls on average 15 days a month multiple times a day. Over the past 6 weeks she has noted a dramatic increase in amount of falls. She can not think of any precipitating factor. No recent head injury or loss of consciousness. She denies any recent medication changes. Upon arrival to the ED, she was afebrile with otherwise normal vitals. CT head at outside hospital with no acute intracranial findings. Hip x-ray with moderate bilateral hip osteoarthritis and left hipchondrocalcinosis. Lumbar spine x-ray with lower lumbar posterior decompression and multilevel degenerative disc and facet disease. Epidural stimulator in place at T7/T8. CT neck angiogram stable showing embolization with occlusion of VG segment of right vertebral artery for prior V3 for dissection and stable small left paraclinoid ICA aneurysms. Neurology was consulted for initial concern of cauda equina syndrome (urinary incontinence, subjective decreased rectal tone in ED) but found no evidence on history or exam. CT head at outside hospitalwith no acute intracranial findings. Hip x-ray with moderate bilateral hip osteoarthritis and left hip chondrocalcinosis. Lumbar spine x-ray with lower lumbar posterior decompression and multilevel degenerative disc and facet disease. Epidural stimulator in place at T7/T8. CT neck angiogram stable showing embolization with occlusion of VG segment of right vertebral artery for prior V3 for dissection and stable small left paraclinoid ICA aneurysms. MRI brain, thoracic and lumbar was reviewed by radiology for acute changes before discharge but she was discharged before the formal read was completed. She has close PCP follow up on Jun 28. Patient's presentation is multifactorial and likely all due to chronic conditions (ataxia, headaches, blurry vision, dizziness). She is not endorsing any new or worsening symptoms aside from an increase in the frequency of falls. 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 Combining that with polypharmacy, patient likely has very poor mobility and balance. Notable home meds include Wellbutrin, fluoxetine, lamotrigine, pregabalin, zonisamide, oxycodone, and tramadol. Notably, her pregabalin as 600 mg b.i.d., a typical max dose is 450 mg daily. Unable to find indications for several medicines this patient is taking. The patient has no history of seizures,and it appears she is possibly on Lamictal for mood stabilization. Also have not found an indicationfor Zonegran. Maybe possibly using off-label for falls, however unclear. Previous notes say indication may be due to antipsychotic induced weight gain. Patient would benefit from outpatient pharmacy and medication review. She did not wish for major changes to her medication however would recommend decreasing centrally acting medications. Patient was discharged in stable condition on 06/17/22. Vital signs reviewed. General: Awake, alert, and oriented. Not in distress. HEENT: Negative for scleral icterus, conjunctival pallor. Pupils round. Hearing and vision grossly intact. Chest: Normal vesicular breathing with equal air entry bilaterally. CVS: Normal rate, regular rhythm. Normal first and second heart sounds. No added sounds. No lower limb edema. No radio-radial delay. Abdomen: Soft and lax. No tenderness or hepato/splenomegaly. Resonant on percussion. Extremities: No skin rashes, scars. Tone: normal. Lower limb edema: negative. Neuro: Cranial nerves grossly intact. CONSULTS ORDERED DURING THIS ADMISSION IP CONSULT TO NEUROLOGY IP CONSULT TO PAIN MEDICINE CONDITION AT DISCHARGE stable Discharge instructions were provided to the patient and caregiver(s). documented in this encounter Discharge Instructions Discharge InstructionsTessie Mosquera - 06/16/2022 7:10 AM CDT You were discharged from the [facility] Medicine 4 ([facility]) Service. Please identify this service name if you call with questions after hospitalization. Discharge Instr - Anthony Ware, P.T., D.P.T., C.S.C.S. - 06/16/2022 1:22 PM CDT Physical Therapy Discharge Summary MOBILITY RESTRICTIONS/PRECAUTIONS: Weight Bearing Status: Nonweightbearing left upper extremity fromprevious surgery Other Precautions: Fall, dizziness, CVAs. CURRENT FUNCTIONAL STATUS: Bed Mobility-Supine to Sit Transfer-Sit to Stand # of Assistants: 1 Transfer Surface: Bed Transfer Equipment: Gait belt, Single point cane Level of Assistance: Supervision/set-up Bed to Chair/Wheelchair Gait Assessment Distance (m): 40 m Surface: Even, Smooth/hard Device: Gait belt, Single point cane # of Assistants: 1 Level of Assistance: Contact guard assistance Quality/Pattern: Decreased toe off, Decreased heel strike, Decreased base of support, Guarding, Decreased arm swing Stability: Fairly stable with single-point cane. Assessment of Gait: Patient demonstrates decreased gait speed, decreased stride length, narrow base of support with guarding throughout. Cueing Provided: Verbal, Tactile Stairs RECOMMENDATIONS: Discharge Therapy Needs - PT: Ongoing skilled physical therapy (Patient agreeable to home health PT.) Level of Care Needed - PT: Physical assistance needed, Assistance with walking and moving around [facility] Discharge information provided on 06/16/2022 Contact information: [facility], [address], Tessie Arora - 06/17/2022 10:50 AM CDT Take a copy of this after visit summary to your appointment(s). REID NATH June 28, 2022 - Tuesday --10:00 AM - Hospital Follow-Up with Dr. Blackwell, primary care provider, at [facility] RECOMMENDATIONS: * * [facility] You may have outpatient appointments at [facility] that changed during your hospitalization. Refer to your [facility] Patient Visit Guide (PVG) for the most current schedule of appointments and detailed instructions of tests/procedures. Call [phone], if you did not receive an PVG or need to CANCEL any [facility] appointment(s). AttachmentsThe following attachments cannot be sent through Care Everywhere. Pregabalin (By mouth) (Nicaraguan)Furosemide (By mouth) (Nicaraguan)documented in this encounter Medications at Time of Discharge Medication Sig Dispensed Refills Start Date End Date albuterol (PROVENTIL Inhale 2 puffs every 0 HFA,VENTOLIN HFA) 90 6 (six) hours as mcg/actuation inhaler needed for wheezing or shortness of breath. Arnuity Ellipta 100 Inhale 1 puff daily. 0 2021 mcg/actuation diskus inhaler aspirin 325 mg tablet Take 1 tablet (325 0 2021 mg total) by mouth every evening. atorvastatin [...] face. diclofenac sodium Apply 2-4 g 0 01/01/2022 (VOLTAREN) 1 % gel topically 4 (four) times a day as needed. esomeprazole (NexIUM) 40 Take 1 capsule ([address] capsule mg total) by mouth every morning before breakfast. FLUoxetine (PROzac) 40 Take 80 mg by mouth 0 mg capsule every morning. furosemide (LASIX) 40 mg Take 1 tablet (40 mg 0 0 06/17/2022 tablet total) by mouth daily. lamoTRIgine (LaMICtal) Take 200 mg by mouth [...] THC multivit-min/iron/folic/ Take 1 tablet by 0 [id number] (HAIR, SKIN AND mouth daily. NAILS ADVANCED ORAL) oxyCODONE (ROXICODONE) Take 10 mg by mouth 0 01/28 10 mg IR tablet every 4 (four) hours as needed for pain. Per patient uses 4-5 tablets per day usually rOPINIRole (REQUIP) 2 mg Take 2 mg by mouth 0 01/2022 tablet at bedtime. sennosides-docusate Take 1 tablet by 0 02/26/2022 sodium (SENOKOT-S) mouth 2 (two) times 8.6-50 mg per tablet a day. tiZANidine (ZANAFLEX) 4 Take 4-8 mg by mouth 1 mg tablet every 8 (eight) hours as needed for muscle spasms. Muscle spasms valACYclovir (VALTREX) Take 500 mg by mouth 0 500 mg tablet daily. zonisamide (ZONEGRAN) Take 300 mg by mouth 8 01/27 100 mg capsule 2 (two) times a day. Banophen 25 mg capsule Take 25-50 mg by 0 022 mouth every 4 (four) hours as needed. cholecalciferol (VITAMIN Take 5,000 Units by 0 D3) 125 mcg (5,000 Unit) mouth daily. capsule cyanocobalamin, vitamin Place 5,000 mcg 0 022 B-12, 2,500 mcg tablet, under the tongue sublingual daily. ipratropium-albuteroL Inhale 3 mL by 0 [...] 0 05/22/2022 (ZOFRAN-ODT) 4 mg disintegrating tablet polyethylene glycol Take 17 g by mouth 0 04/11/20 17 (MIRALAX) 17 gram/dose as needed for oral powder constipation. rizatriptan (MAXALT) 10 Take 1 tablet by 0 2021 mg tablet mouth as directed. May repeat every 2hrs as needed (Max 30mg/24hrs) SUMAtriptan (IMITREX) 5 1-2 sprays as 0 2 mg/actuation nasal spray needed. acetaminophen (TYLENOL) Take 2 capsules 0 022 06/21/2022 500 mg capsule (1,000 mg total) by mouth every 6 (six) hours as needed for pain. Start the day of surgery. cholecalciferol (VITAMIN Take 125 mcg by 0 06/25/2022 D3) 125 mcg (5,000 Unit) mouth every morning. tablet cyanocobalamin, vitamin Take 1 tablet by 0 202106/21/2022 B-12, 2,500 mcg lozenge mouth daily. pregabalin (LYRICA) 300 Take 1 capsule (300 60 capsule 0 06/24/2022 mg capsule mg total) by mouth 2 (two) times a day. cyanocobalamin, vitamin Place 5,000 mcg 0 022 06/21/2022 B-12, 2,500 mcg lozenge under the tongue daily. ondansetron ODT Take 1 tablet by 0 01/16/2010 (ZOFRAN-ODT) 8 mg mouth 3 (three) disintegrating tablet times a day as needed for nausea. documented as of this encounter Progress Notes Conchita Campos C.O.T.A., O.T.A. - 06/18/2022 10:55 AM CDT Occupational Therapy Acute Hospital Inpatient Treatment SUBJECTIVE Patient's Name: Angie Ashley Demetri Referring/Attending Provider: Saul Pollard M.D. Medical Diagnosis: Pain Back [M54.9] Weakness General [R53.1] Incontinence Urinary [R32] Ataxia [R27.0] Repeated Falls [R29.6] Reason for Referral: Occupational Therapy Evaluation and Treatment OT treat general acute Onset Date: 06/15/22 Payor: MEDICARE / Plan: MEDICARE A AND B / Product Type: Medicare / History of Present Illness:Patient is a 57-year-old, female, admitted with complaints of headache, blurred vision, dizziness and ataxia. Patient with recent left shoulder surgery in immobilizer. Patient diagnosed with generalized weakness secondary to polypharmacy PMH: Bilateral occipital neuralgia, cervical spondylosis, chronic pain with epidural stimulator, fibromyalgia, nicotine, left ICA aneurysm, ischemic infarcts, pre DM, HLD, neuropathy. Patient/Caregiver Goals: Patient would like to return home and obtain an electric scooter. Patient Comments: Patient present sitting edge of bed eating breakfast; agreeable to OT; reports shehad significant pain last night; however better, and agreeable to OT. Fall Risk (65 and older) Fall in the last 12 months: Yes Did you have an injury with the fall?: No Are you fearful of falling?: No Fall Risk Comments: Patient reports tripping as the primary reason for her falls in the last year, reports only bruising Precautions Weight Bearing Status: Nonweightbearing left upper extremity from previous surgery Other Precautions: Fall, dizziness, CVAs, cognition/safety awareness, impulsivity OBJECTIVE Angie's NOHARM modalities were an educational focus and demonstrated during their therapy session. Vitals monitored throughout session; within normal ranges. Vitals stable per chart review. Adaptive Interventions Adaptive Intervention/Education: Patient was educated on activity modification and how to apply those techniques to activities of daily living. ADL Comments ADL Comments: Provided patient with education on durable medical equipment for adls, and bathroom. Patient would benefit from utilizing a shower bench or shower chair with back. Patient throughout session required cues for adhering to left upper extremity non weight-bearing precautions. Education on one handed dressing technique for donning and doffing shirt. Education provided on OT role. Education provided today: Education provided on adaptive equipment recommendations, and adhering to non weight bearing on left upper extremity. Team Communication: Patient's nurse was contacted and patient's status was discussed, Discussed patient's care with PT Outcome Measures [facility] Inpatient Short Form: Putting on and taking off regular lower body clothing?: A Little Putting on and taking off regular upper body clothing?: None Taking care of personal grooming such as brushing teeth?: None Bathing (including washing, rinsing, drying)?: A Little Toileting, which includes using toilet, bedpan, or urinal?: A Little Eating meals?: None Daily Activities Raw Score (max 24): 21 Daily Activities Standardized Score: 44.27 Interpretation: Clinicians answer the -[facility] Inpatient Short Form based on observed patient activityand/or clinical judgement (ie. patient can be scored without physically performing each activity) Based on scoring guidelines using the raw score value: Those going to home had an average score at or above 18 Those going to facility had an average score at or below 17 Patient was left in bed at end of session with call light in reach, all needs met and questions answered. Contact monitoring: PPE used during therapy: Therapist was wearing the following PPE throughout entire session: surgicalmask, eye protection, and gloves Patient was wearing a mask during therapy session: no Assessment Discharge Therapy Needs - OT: Ongoing skilled occupational therapy Skilled therapy can include occupational therapy provided by home health, outpatient clinic, or a post-acute facility. The location of these services is determined by the patient's care team in partnership with patient/family. Level of Care Needed - OT: Assistance with toilet/shower transfers, Assistance with medication set up/administration, Assistance with showering/bathing, Assistance with meal preparation, Assistance with personal financial planner, Assistance with shopping, Assistance with housekeeping, Assistance with transp ortation Recommended Adaptive Equipment - OT: Shower chair with back, Transfer tub bench Barriers to Discharge Home: Fall risk, Safety concerns, Limited caregiver availability Clinical Impression: Patient remains limited secondary to decreased activity tolerance, impaired functional balance, and generalized weakness, resulting in the following deficits; decreased safety and independence for completing functional transfers and self care tasks. Today, patient was provided with education on fall pr evention, safety, and durable medical equipment for homegoing needs. Patient would benefit from a shower bench or chair within home. Patient demonstrates throughout session noncompliance for non weightbearing of left upper extremity; education provided on weight bearing status, and adhering to precautions. Patient will benefit from continued skilled occupational therapy in the acute care setting andpost acute to address with progression of activities of daily living skills, strength, mobility, balance and safety/cognition. Currently, skilled Occupational therapy treatment during this hospitalization is medically necessary to provide graded activities to promote patient's functional return, safety and quality of life in line with established rehabilitation goals. Rehab potential: Ms. Mosquera has fair potential to achieve established occupational therapy goals within the time frame outlined below. Functional Goals: OT Goal #1: Patient will complete toileting tasks including transfer, clothing management and hygiene with supervision using adaptive equipment as needed to maximize safety and independence to reduce dependence on others. OT Goal #1 Status: Slowly progressing OT Goal #2: Patient will complete lower body dressing with supervision using adaptive equipment as needed to maximize safety and independence to reduce dependence on others. OT Goal #2 Status: Slowly progressing OT Goal #3: Patient will complete standing grooming task with supervision to increase independence and reduce dependence on others. OT Goal #3 Status: Ongoing OT Goal #4: Patient will actively participate in cognitive testing to determine level of assistance needed for safe discharge planning. OT Goal #4 Status: Ongoing Progress: Improving as expected Plan Occupational Therapy Attestation Statement: Patient agrees with the plan of care and goals. OT Frequency: OT Amount: 1 visit per day OT Frequency: 5 times per week OT Inpatient Duration : Until goals are met or hospital discharge Requires Inpatient OT Follow-Up: Yes OT - Next Inpatient Appointment: 06/21/22 Plan: Continue with current plan OT Plan Comments: Next Session: o-log/cog-log, standing grooming, one handed lower body dressing techniques Treatment interventions may include: Treatment Interventions: Therapeutic exercise, Therapeutic functional activity, Neuromuscular re-education, Self-care/home management, Cognitive skills training MATOS Visit Trackin/6 Billing: Time Spent with Patient Therapeutic Interventions Home Management Training (min): 17 min Time Tracking Total Timed Units (min): 17 min Total Treatment Time (min): 17 min Alisha Brown, O.T.ABritton Kiran Melton M.D. - 06/17/2022 8:00 PM CDT [facility] 4 ([facility]) PROGRESS NOTE SUBJECTIVE No acute events overnight I have reviewed the current medication list. OBJECTIVE VITAL SIGNS Temperature: [36.5 ??C-36.6 ??C] 36.5 ??C Resp Rate: [18-20] 20 Blood Pressure: (92-128)/(59-79) 108/59 SpO2: [93 %-95 %] 94 % Pulse Rate: [71-105] 105 PHYSICAL EXAM General: Patient is appears uncomfortable., well-groomed, and laying in bed. Speaks slowly Eyes: Pupils equal, round, and reactive to light and accomodation, extraocular muscles intact. ENT: Moist mucous membranes in oropharynx. CV: Regular rate and rhythm with normal S1 and S2. No murmurs, rubs, or gallops. No peripheral edema. Lungs: Clear to auscultation bilaterally. No wheezes, crackles, or rales. Abdomen: Soft, non-tender, and non-distended. No masses. No rebound/guarding. No hepatosplenomegaly.Bowel sounds present. Skin/MSK: Skin warm, dry, and well perfused. No rashes or other lesions. No swollen or erythematous joints. Left arm in sling 2/2 recent arthroplasty. DIAGNOSTICS I have personally reviewed the laboratory data and imaging since admission, and in/outs for past 72 hours. ASSESSMENT / PLAN Ms. Mosquera is hospitalized on [facility] 4 ([facility]) for evaluation and management of Weakness General. 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 Patient states the combination of headaches, blurry , and dizziness have led to ataxia and difficulty with mobility. She has an extensive history of falls, and states she falls on average 15 days a month multiple times a day. Over the past 6 weeks she has noted a dramatic increase in amount of falls. She can not think of any precipitating factor. No recent head injury or loss of consciousness. She denies any recent medication changes. Of note, she does use medical marijuana, oxycodone, and tramadol for pain management. Patient's presentation is multifactorial and likely all due to chronic conditions (ataxia, headaches, blurry vision, dizziness). She is not endorsing any new or worsening symptoms aside from an increase in the frequency of falls. 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 Combining that with polypharmacy, patient likely has very poor mobility and balance. We will hold any unnecessary meds, rule out any acute neurological deficits through MRI, and order PT/OT. Copying prior documentation due to delay in discharge Plan: -F/u results of MRI -D/C tramodol -Discharge in morning #Generalized Weakness #Hx Stroke 2/2 vertebral artery dissection s/p embolization #Blurred vision of right eye w/ diminished peripheral jhaveri #Ataxia c/b recurrent falls #Dizziness #Chronic Pain #Migraines #Polypharmacy -Consult to neurology, MRI Brain/Lumbar/Thoracic Spine to rule out acute changes -Consult to PT/OT #Nighttime Incontinence #Overflow Incontinence -Urinalysis #Neuropathy #Pre-diabetes Last A1c 6.1%, 01/2021 -Repeat A1c -Vitamin B12 assay -Home pregabalin #Hyperlipidemia -Continue atorvastatin 80 mg daily Radha Miller, P.T. - 06/17/2022 12:57 PM CDT Physical Therapy Inpatient Treatment Note SUBJECTIVE Patient's Name: Angie Mosquera Referring/Attending: Saul Pollard M.D. Medical Diagnosis: Pain Back [M54.9] Weakness General [R53.1] Incontinence Urinary [R32] Ataxia [R27.0] Repeated Falls [R29.6] Reason for Referral: PT Evaluate and Treat PT treat general acute Onset Date: 06/15/22 Payor: MEDICARE / Plan: MEDICARE A AND B / Product Type: Medicare / History of Present Illness: Patient is a 57-year-old, female, admitted with complaints of headache, blurred vision, dizziness and ataxia. Patient diagnosed with generalized weakness secondary to polypharmacy PMH: Bilateral occipital neuralgia, cervical spondylosis, chronic pain with epidural stimulator, fibromyalgia, nicotine, left ICA aneurysm, ischemic infarcts, pre DM, HLD, neuropathy. Prior Function/Occupational Profile Dominant Hand: Right Lives With: Alone Receives Help From: reformatory attendant, Family, Friend(s) (Son lives in apt next to her.) ADL Assistance: Required assistance ADL Assistance Comments: Gets help from [employer] for her bath/shower 3x/week, and for her meals, RN once every 2 weeks. IADL/Homemaking Assistance: Required assistance IADL/Homemaking Assistance Comments: Gets help for housecleaning Driving: Does not drive Driving Comments: Friend assists Occupational Role: On disability Occupational Role Comments: Previously worked at a [employer] Prior Mobility/Functional Transfers Level of Ermine: Needs assistance Gait Devices/Wheelchair Used Comments: No AD since [facility]. Home Equipment Home Adaptive Equipment: Medical alert device Gait Devices Owned: Four-wheeled walker, Cane Bathroom Equipment: Hand-held shower head, Grab bars in shower Home Living Type of Home: Apartment Home Layout: One level Home Access: Level entry Bathroom Shower/Tub: Tub/shower unit Tub/shower unit location: Main floor Bathroom Toilet: Standard Bathroom Accessibility: Yes How Accessible: Accessible via walker Patient/Caregiver Goals: Patient would like to return home and obtain an electric scooter. Precautions Weight Bearing Status: Nonweightbearing left upper extremity from previous surgery Other Precautions: Fall, dizziness, CVAs. Fall Risk (65 and older) Fall in the last 12 months: Yes Did you have an injury with the fall?: No Are you fearful of falling?: No OBJECTIVE Angie's NOHARM modalities were not used during their therapy session. Cognition Arousal/Alertness: Appropriate responses to stimuli Attention: Impairments noted Initiation: No difficulty with initiation Orientation: Oriented X4 Following Commands: Follows all commands/directions without difficulty Safety/Judgment: Impairments noted Self-monitoring/Self-correct Consistently: Moderate Insight/Awareness of Deficits: Moderate Impulsivity: Mild Safety/Judgment Comments: Patient states sometimes she has difficulty getting onto the toilet, question how she is toileting. Treatment consisted of: Bed Mobility - Supine to Sit # of Assistants: 0 Level of Assistance: Modified Independent Device: Bed rail, Head of bed elevated Bed Mobility - Sit to Supine # of Assistants: 0 Level of Assistance: Modified Independent Device: Bed rail, Head of bed elevated Sit to Stand Transfers # of Assistants: 0 Transfer Surface: Bed, Toilet/Commode Transfer Equipment: Gait belt, Single point cane Level of Assistance: Modified Independent Assessment/Delivery: Assessed Stand to Sit Transfers # of Assistants: 0 Transfer Surface: Bed, Toilet/Commode, Other (transport cart) Transfer Equipment: Gait belt, Single point cane Level of Assistance: Modified independent Assessment/Delivery: Assessed Comments: No physical assist necessary. Toilet Transfers # of Assistants: 1 Transfer Surface: Toilet Transfer Approach: To and from, Ambulating Transfer Equipment: Grab bars Level of Assistance: Modified independent Assessment/Delivery: Assessed Balance Static Sitting-Balance: Good (Maintains balance without support) Dynamic Sitting-Balance: Good (Maintains balance without support) Static Standing-Balance: Fair (Maintains balance with handheld/contact guard assistance) Dynamic Standing-Balance: Fair (Maintains balance with handheld/contact guard assistance) Gait Assessment/Training Distance (m): 57.5 m Surface: Even, Smooth/hard Device: Gait belt, Single point cane # of Assistants: 1 Level of Assistance: Supervision/Set-up Quality/Pattern: Decreased toe off, Decreased heel strike, Decreased base of support, Guarding, Decreased arm swing Assessment of Gait: Patient demonstrates decreased gait speed, inconsistent & decreased stride length, narrow base of support with guarding throughout. Cueing Provided: Verbal, Tactile Training/Intervention: Verbal and tactile cues for increased stride length and base of support as well as safety throughout. Response: No adverse events noted, no loss of balance, vitals within normal limits throughout. Seated Exercises Seated Exercise - Side Addressed: Bilateral Sitting Surface: Bed Seated Exercise: Ankle pumps, Long arc quads Exercise Mode: Active motion against gravity Sets/Repetitions: x10 The following coordination of care occurred today: Patient's nurse was contacted and patient's status was discussed Inpatient AVS Complete - PT: Yes Inpatient AVS Completion Date - PT: 06/16/22 Patient was left on transport cart (enroute to procedure) at end of session with call light in reach, all needs met and questions answered. Contact monitoring: PPE used during therapy: Therapist was wearing the following PPE throughout entire session: surgicalmask, eye protection, and gloves Patient was wearing a mask during therapy session: yes Additional Staff Present During Session: RN and home health aide caregiver Outcome Measures [facility] Inpatient Short Form: -[facility] Basic Mobility (V.2) How much help [...] None 5. To walk in hospital room?: A Little 6. Climbing 3-5 steps with a railing?: A Lot -[facility] Basic Mobility (V.2) Raw Score: 21 -[facility] Basic Mobility (V.2) Standardized Score: 45.55 Interpretation: Clinicians answer the -[facility] Inpatient Short Form based on observed patient activityand/or clinical judgement (ie. patient can be scored without physically performing each activity) Based on scoring guidelines using the raw score value: Those going to home had an average score at or above 18 Those going to facility had an average score at or below 17 Assessment Discharge Therapy Needs - PT: Ongoing skilled physical therapy (Patient agreeable to home health PT.) Skilled therapy can include physical therapy provided by home health, outpatient clinic, or a post-acute facility. The location of these services is determined by the patient's care team in partnershipwith patient/family. Level of Care Needed - PT: Physical assistance needed, Assistance with walking and moving around thehome Equipment Recommended - PT: Single-point cane (Patient owns) Barriers to Discharge Home: Fall risk, Safety concerns, Limited caregiver availability From a physical therapy perspective, the level of care above has been recommended for Ms. Mosquera after hospital discharge. This level of care is based on her functional abilities during today's session. This may change throughout the hospital course and will be updated as appropriate. Clinical Impression of today's session: Patient is making slow functional mobility progress. Hx of CVA, visual disturbance R eye, L UE currently immobilized (NWB). She reports prior to L shoulder surgery she used 4WW for mobility, and now isusing single point cane on R which is not ideal, but currently necessary, thus, she's adjusting her gait to reduce fall risk, walks very slowly, with erratic step length and requires CGA/Supervision for safety. The patient appreciates the support of physical therapy and is hoping for ongoing skilled services in sub-acute setting. SW/CM facilitating DC planning. Patient is currently below functinoal baseline and benefits from skilled PT to optimize mobility potential and return to prior level of function. Rehab potential: Ms. Mosquera has Good potential to achieve established physical therapy goals withinthe time frame outlined below. Functional Goals and Timeframes: PT Inpatient Goals PT Goal #1: Patient will be able to complete all bed mobility independently with no physical assist and no verbal cues necessary in order to facilitate return to PLOF. PT Goal #1 Status: Progressing PT Goal #2: Patient will be able to complete STS transfer from edge of bed to standing modified independent utilizing single-point cane for assist, in order to allow for functional transfers at home. PT Goal #2 Status: Progressing PT Goal #3: Patient will be able to ambulate 100m modified independent utilizing single-point cane for assist, in order to allow for functional ambulation upon DC. PT Goal #3 Status: Progressing Plan Treatment Plan: Plan: Continue with current plan PT Frequency: PT Frequency: 5 times per week PT Inpatient Duration : Until goals are met or hospital discharge Requires Inpatient Follow-Up: Yes PT - Next Inpatient Appointment: 06/18/22 PT Plan Comments: Continue to progress mobility, transfers, ambulation, balance and safety. Treatment interventions may include: Treatment/Interventions: Therapeutic exercise, Therapeutic functional activity, Self-care/home management, Neuromuscular re-education, Gait training Billing: Time Spent with Patient Therapeutic Interventions Therapeutic Activity (min): 18 min Therapeutic Exercise (min): 8 min Time Tracking Total Timed Units (min): 26 min Total Treatment Time (min): 26 min Radha Miller P.T. Marlene Wu Pharm.D., R.Ph. - 06/16/2022 1:20 PM CDT Pharmacist Progress Note Reason for admission: recurrent falls and ataxia PMH: multiple prior strokes 2/2 right vertebral artery non-healing dissection s/p embolization 01/2021 (on ASA), left paraclinoid ICA aneurysm, DM2, HTN, HLD, gastric bypass (1999), possible esophageal dysmotility, chronic pain (occipital neuralgia, cervical spondylosis and spinal fusion, fibromyalgia)s/p SCS device (placed 2019, currently not functioning), and multiple recent shoulder surgeries. OBJECTIVE Home medications: Held: quetiapine, bendaryl, Medical cannabis (THC) DVT Prophylaxis: enoxaparin ASSESSMENT / PLAN Polypharmacy, recent falls: Per patient not recent medication changes in past month Possible medications that could contribute: pregabalin 600mg BID (current outpatient dose, 300mg BIDreordered here (typical max dose 450mg/day), holding PRN tramadol Multiple other medications with central acting properties: PRN oxycodone (per patient uses 40-50mg/day), PRN valium, PRN meclizine, ropinirole, zonisamide, lamotrigine, bupropion XL, fluoxetine. Would need to work on tapering plans to narrow medication therapy. Home medication reconciliation: reviewed with patient over the phone, she gets her scheduled medications in pill-packs from the outpatient pharmacy. Dosages confirmed with refill history as patient wasunsure of a few. Consider outpatient [facility] pharmacy review Changes to medications anticipated at discharge:pending hospital course Marlene Wu Pharm.D., R.Ph. [phone] Marlene Wu PharmOj., R.Ph. - 06/16/2022 1:14 PM CDT Images from the original note were not included. Admission Medication History Note Medication list source: Patient + [facility] refill history (patient gets her scheduled medications pill-packed by them too) Medication related information: - patient usually uses 40-50mg of oxycodone a day - she has been using 81mg of OTC aspirin (since mid March) as she couldn't find at 325mg tablet in theOTC section when she went to the pharmacy - Lasix is prescribed BID but patient typically takes daily Prior to Admission Medications Med List Status: Pharmacy Complete Set By: Marlene Wu, PharmBrittonD., R.Ph. at 06/16/2022 12:56 PM Status Comment 06/16/2022 12:56 PM With patient over the phone, 06/16/22 Taking? Last Dose Informant Start Date End Date LT acetaminophen (TYLENOL) 500 mg capsule Past Month 01/01/22 -- Take 2 capsules (1,000 mg total) by mouth every 6 (six) hours as needed for pain. Start the day of surgery. albuterol (PROVENTIL HFA,VENTOLIN HFA) 90 mcg/actuation inhaler 06/15/2022 -- -- Inhale 2 puffs every 6 (six) hours as needed for wheezing or shortness of breath. Arnuity Ellipta 100 mcg/actuation diskus inhaler 06/15/2022 01/28/22 -- Inhale 1 puff daily. aspirin 325 mg tablet 06/15/2022 02/27/22 -- Take 1 tablet (325 mg total) by mouth every evening. Notes: Pt thinks she was taking the 81mg when she needed to use the OTC atorvastatin (LIPITOR) 80 mg tablet Past Month 02/17/21 -- Take 1 tablet (80 mg total) by mouth at bedtime. benzonatate (TESSALON PERLES) 100 mg capsule Past Month 03/19/19 -- Take 100 mg by mouth 3 (three) times a day as needed for cough. buPROPion XL (WELLBUTRIN XL) 150 mg 24 hr tablet Past Week 02/04/21 -- Take 150 mg by mouth every morning. uzhamaqfvc-zmczdcoexwcil-zfdw (ESGIC) 50-325-40 mg per tablet Past Month 02/27/21 -- Take 1 tablet by mouth every 6 (six) hours as needed for migraine. cetirizine (ZyrTEC) 10 mg tablet 06/15/2022 -- -- Take 10 mg by mouth daily. cholecalciferol (VITAMIN D3) 125 mcg (5,000 Unit) tablet Past Week -- -- Take 125 mcg by mouth every morning. clindamycin (CLEOCIN T) 1 % external solution Past Week 02/22/22 -- Apply 1 application topically 2 (two) times a day. Apply to face. cyanocobalamin, vitamin B-12, 2,500 mcg lozenge Past Week 01/28/22 -- Take 1 tablet by mouth daily. diazePAM (VALIUM) 10 mg tablet Past Month 02/14/19 -- Take 10 mg by mouth 2 (two) times a day as needed. Notes: Uses as needed for sleeping, pain, anxiety diclofenac sodium (VOLTAREN) 1 % gel Past Week 01/01/22 -- Apply 2-4 g topically 4 (four) times a day as needed. Notes: Last dispensed: 05/12/2022 x7 day supply diphenhydrAMINE (BENADRYL) 25 mg tablet Past Week -- -- Take 75 mg by mouth at bedtime. esomeprazole (NexIUM) [address] capsule Past Week 11/19/17 -- Take 40 mg by mouth every morning before breakfast. FLUoxetine (PROzac) 40 mg capsule 06/15/2022 -- -- Take 80 mg by mouth every morning. furosemide (LASIX) 40 mg tablet Past Week 02/08/19 -- Take 40 mg by mouth 2 (two) times a day. Per patient usually takes daily Notes: Patient usually takes daily ipratropium-albuteroL (DUONEB) 0.5-2.5 mg/3 mL nebulizer solution Unknown 01/16/21 -- Inhale 3 mL by nebulization 4 (four) times a day as needed for shortness of breath or wheezing. lamoTRIgine (LaMICtal) 200 mg tablet 06/15/2022 02/08/19 -- Take 200 mg by mouth 2 (two) times a day. MAG-G 27 mg magnesium (500 mg) tablet Past Week 02/16/19 -- Take 1 tablet by mouth at bedtime. meclizine (ANTIVERT) 25 mg tablet Past Month 01/19/21 -- Take 25 mg by mouth every 6 (six) hours as needed for dizziness. medical cannabis capsule Past Week -- -- Take 1-4 capsules by mouth 2 (two) times a day as needed (pain). THC component: 10 mg CBD component: 0 mg medical cannabis oil inhalation Past Week -- -- Inhale as needed (pain). Vape THC: 5 mg dose - per pt medical cannabis oil oral Past Week -- -- Take 1 each by mouth as needed (pain). 1 spray as needed. 5 mg THC multivit-min/iron/folic/tpd139 (HAIR, SKIN AND NAILS ADVANCED ORAL) Past Week -- -- Take 1 tablet by mouth daily. naloxone (NARCAN) 4 mg/actuation nasal spray -- 03/26/22 -- Administer 1 spray into one nostril as directed. SPRAY 0.1 MILLILITER BY INTRANASAL ROUTE IN 1 NOSTRIL MAY REPEAT DOSE EVERY 2-3 MINUTES NEEDED ALTERNATING NOSTRILS ondansetron ODT (ZOFRAN-ODT) 8 mg disintegrating tablet More than a month 01/16/10 -- Take 1 tablet by mouth 3 (three) times a day as needed for nausea. oxyCODONE (ROXICODONE) 10 mg IR tablet 06/15/2022 02/24/22 -- Take 10 mg by mouth every 4 (four) hours as needed for pain. Per patient uses 4-5 tablets per day usually polyethylene glycol (MIRALAX) 17 gram/dose oral powder Unknown 04/11/17 -- Take 17 g by mouth as needed for constipation. pregabalin (LYRICA) 300 mg capsule 06/15/2022 09/18/20 -- Take 600 mg by mouth 2 (two) times a day. QUEtiapine (SEROquel) 50 mg tablet Past Week 08/19/20 -- Take 50 mg by mouth at bedtime. rizatriptan (MAXALT) 10 mg tablet -- 05/05/22 -- Take 1 tablet by mouth as directed. May repeat every 2hrs as needed (Max 30mg/24hrs) rOPINIRole (REQUIP) 2 mg tablet Past Week 01/28/22 -- Take 2 mg by mouth at bedtime. sennosides-docusate sodium (SENOKOT-S) 8.6-50 mg per tablet Past Week 02/26/22 -- Take 1 tablet by mouth 2 (two) times a day. tiZANidine (ZANAFLEX) 4 mg tablet Past Week 03/27/19 -- Take 4-8 mg by mouth every 8 (eight) hours as needed for muscle spasms. Muscle spasms traMADoL (ULTRAM) 50 mg tablet Past Week 05/20/22 -- Take 1 tablet (50 mg total) by mouth every 6 (six) hours as needed for severe pain or score 7-10 of10 Indications: Acute Pain, Acute Pain Exception. valACYclovir (VALTREX) 500 mg tablet Past Week 02/22/18 -- Take 500 mg by mouth daily. zonisamide (ZONEGRAN) 100 mg capsule 06/15/2022 02/22/19 -- Take 300 mg by mouth 2 (two) times a day. Saul Pollard M.D. - 06/16/2022 1:09 PM CDT I saw and evaluated the patient, participating in the dodson portions of the service. I reviewed the resident/fellow???s note. I agree with the resident/fellow???s findings and plan. Ms. 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 She presented to the hospital for weakness, urinary incontinence, falls, headache, vision changes with blurry vision. She lives at home alone. Some of these symptoms have been ongoing, and after speaking with the patient she gives several different time frames in terms of the duration of these symptoms. She has an extensive medication list with many many centrally acting medications or medications thatcould be contributing to her symptoms. She shares that she has had this regimen for a long period oftime. Some of these medications are past their maximum doses - such as Lyrica. For these reasons, weare working with the patient to reduce polypharmacy as much as possible. Appreciate pain service recommendations regarding addressing her pain regimen and recommendations. We are also obtaining an MR of the brain and spine tomorrow - it needs to be done with anesthesia and was scheduled for tomorrow based on availability. Appreciate PT and OT assistance with her care - PT is recommending home health PT. Saul Pollard M.D. Carley Mendez M.D. - 06/15/2022 3:51 PM CDT PAIN SERVICE MISCELLANEOUS NOTE Pain service contacted by MRI team regarding Ms. Angie Mosquera's [employer] Intellis SCS device (confirmed by [employer] rep Chon Cornelius). Per . Demetri, she lost her air chipper months ago so has not been able to charge the device. Device was interrogated, however, it was unable to connect to the peoplesoft programmer, likely due to the battery being depleted per patient report. exhibit technician Mandy in room during interrogation and aware that device is off. Carley Mendez M.D. PGY-3, Anesthesiology and Perioperative Medicine documented in this encounter H&P Notes Renetta Michael M.D., M.S. - 06/15/2022 11:41 PM CDT Images from the original note were not included. [facility] 4 ([facility]) - ADMISSION NOTE Hospital Day 0 This is a supervisory note for Dr. Kiran Melton. I had the opportunity to see the patient and agree with the assessment, history, and examination. Please see their note for full details of our discussion. SUBJECTIVE CHIEF COMPLAINT Generalized weakness, urinary incontinence, ataxia HISTORY OF PRESENT ILLNESS Ms. Mosquera is a 57 y.o. female p/w generalized weakness, urinary incontinence, and ataxia on a background history of multiple prior strokes 2/2 right vertebral artery non-healing dissection s/p embolization 01/2021 (on ASA), left paraclinoid ICA aneurysm, DM2, HTN, HLD, gastric bypass (1999), possible esophageal dysmotility, chronic pain (occipital neuralgia, cervical spondylosis and spinal fusion, fibromyalgia) s/p SCS device (placed 2019, currently not functioning), and multiple recent shoulder surgeries. Of note, it was challenging to obtain clear history as the patient has provided varied historical accounts to different healthcare providers. But, reportedly, she has had 6 weeks of recurrent falls andataxia. Over the last 3 days, she reported she had increased episodes of urinary incontinence and worsening back pain. However, she attests to chronic urinary incontinence over several years and only over the last several months developing leakage of urine following voiding. She also does not attest to saddle anesthesia or LE weakness. She presented to outside ED on 06/14 for this without significant findings on CT head (over-read by our radiologists without any acute or subacute findings) or otherwise. Reportedly, she was recommendedto stay for observation but left AMA. She presented to the [place] ED 06/15. In the ED, she was vitally stable. CBC notable for chronic normocytic anemia with Hgb of 10.4. BMP and LFTs largely unremarkable. Troponins negative. ECG unremarkable. Initially plan was for MRI brain, thoracic, and lumbarspine; however, she was evaluated by neurology who did not suspect any acute neurologic changes warranting emergent MRI of the brain or spine. They also mentioned given the duration of symptoms, any leilani rologic changes should have appeared on CT by this time. She was admitted to the floor for further evaluation and management. OBJECTIVE VITAL SIGNS Temperature: [37 ??C-37.4 ??C] 37 ??C Resp Rate: [16-18] 16 Blood Pressure: (97-138)/(61-98) 104/76 SpO2: [92 %-99 %] 93 % Pulse Rate: [58-84] 73 PHYSICAL EXAMINATION General: Patient sitting up in bed in no acute distress, eating chicken noodle soup HEENT: PERRL Cardiac: Regular rate and rhythm Pulm: CTAB Abdomen: Non-tender, non-distended Extremities: Tenderness of left hip Neuro: No focal neuro deficits, subjective numbness L>R DIAGNOSTICS I have reviewed relevant diagnostic studies, and they are as listed below: Laboratory Studies Recent Labs 06/15/22 1236 05/20/22 0343 05/19/22 0326 HGB 10.4 L 8.4 L 7.6 L WBC 4.1 5.8 7.9 PLT 230 256 269 Recent Labs 06/15/22 1236 05/19/22 0326 05/17/22 1050 NA 140 137 140 KPLASMA 5.0 -- -- CL 106 105 106 BICARB 24 24 24 Recent Labs 06/15/22 1236 05/19/22 0326 05/17/22 1050 BUN 13 13 18 CREATININE 0.72 0.70 0.76 Recent Labs 06/15/22 1237 BILITOT <0.2 BILIDIR <0.2 AST 42 ALT 31 ALKPHOS 116 H ALBUMIN 4.0 Imaging As noted in HPI. ASSESSMENT / PLAN Ms. Mosquera is a 57 y.o. female p/w generalized weakness, urinary incontinence, and ataxia on a background history of multiple prior strokes 2/2 right vertebral artery non-healing dissection s/p embolization 01/2021 (on ASA), left paraclinoid ICA aneurysm, DM2, HTN, HLD, gastric bypass (1999), possibleesophageal dysmotility, chronic pain (occipital neuralgia, cervical spondylosis and spinal fusion, fibromyalgia) s/p SCS device (currently not functioning). # Gait imbalance # Recurrent falls # Low back pain # Chronic pain s/p SCS device (placed 2019, not currently functioning) # Hx multiple strokes, # Left ICA aneurysm At this time, there is the possibility of a spinal cord etiology contributing to falls given her history and would likely be worthwhile to proceed with obtaining MRI spine for this. CT without evidenceof subdural hemorrhage, NPH, or new strokes. At this time, my greatest suspicion is the falls are multifactorial from ataxia 2/2 neurologic history, problems with vision 2/2 stroke, and polypharmacy. MRI brain, thoracic and lumbar spine as per neuro PT/OT evaluation Discussion with pain medicine following MRI to determine if there is a way to reactivate her device and hopefully improve pain management to reduce polypharmacy Neuropathy work-up with B12 and A1x Recommend polypharmacy review as she is on multiple centrally active medications, including anticholinergics (Zyrtec, Benadryl, Meclizine), Diazepam, Oxycodone, antidepressants (Wellbutrin, Fluoxetine,Trazodone), psychotropics (Quetiapine), Tizanidine, and pregabalin # Urinary incontinence Does not appear to be neurologic in etiology - possibly overflow incontinence, though no clear obstruction. PVR Urinalysis Case will be staffed with supervising infrastructure consultant within 24 hours. Please page the [facility] Medicine 4 ([facility]) service pager at [phone] with questions or concerns. Renetta Michael M.D., M.S. PGY-3 [phone] Department of Internal Medicine Kiran Melton M.D. - 06/15/2022 12:05 AM CDT [facility] Medicine 4 ([facility]) Admission Note SUBJECTIVE CHIEF COMPLAINT Generalized weakness HISTORY OF PRESENT ILLNESS Ms. Angie Mosquera is a 57 y.o. female who presents with chronic headaches/blurry vision/dizziness/ataxia leading to multiple falls. 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 When asked what her primary reason for admission was patient states it is a combination of headaches/blurry vision/dizziness/ataxia that is leading to increased frequency of falls. None of these conditions are new and are chronic secondary to history of stroke years ago. Regarding her headaches, she does have a history of migraines and endorses several months of headaches. Headaches start on back of head and migrate to front of eyes (unilateral or bilateral). Last anywhere from a couple hours to full day. May or may not be associated with blurry vision. Occasionally relieved with ESGIC. Blurry vision is primarily in the right eye and started back when she had her stroke in 2020. It has not acutelyworsened. Blurry vision sometimes lasts for hours to a full day. Patient also endorses history of dizziness secondary to history of stroke. When asked about lightheadedness versus room spinning, patient only states she feels ???off balance. Dizziness may happen when she is lying down or moves her head too quickly. Patient states the combination of headaches, blurry , and dizziness have led to ataxia and difficulty with mobility. She has an extensive history of falls, and states she falls on average 15 days a month multiple times a day. She attempts to guard her head with each fall but does endorse multiple occasions where she was hit her head. Over the past 6 weeks she has noted a dramatic increase in amount of falls. She can not think of any precipitating factor. She fell 3 times yesterday and was noted to have hit her butt, back, and left hip. No recent head injury or loss of consciousness. She denies any recent medication changes. Review of systems remarkable for weight loss of 30 lb over the past 6 months, night sweats, nausea and vomiting secondary to headaches, chronic pain, and chronic incontinence. She endorses multiyear nighttime incontinence but a more recent overflow incontinence. She was seen in the [place] ER a few days ago where they obtained a CT head without evidence for new infarct. She left against medical advice and came to [place] for re-evaluation. Upon arrival to the ED, she was afebrile with otherwise normal vitals. Labs notable for hemoglobin 10.4 (chronically stable), alk-phos 116, normal BMP, and unremarkable troponins. CT head at outside hospital with no acute intracranial findings. Hip x-ray with moderate bilateral hip osteoarthritis and left hip chondrocalcinosis. Lumbar spine x-ray with lower lumbar posterior decompression and multilevel degenerative disc and facet disease. Epidural stimulator in place at T7/T8. CT neck angiogram stable showing embolization with occlusion of VG segment of right vertebral artery for prior V3 for dissection and stable small left paraclinoid ICA aneurysms. Neurology was consulted for initial concern of cauda equina syndrome (urinary incontinence, subjective decreased rectal tone in ED) but found no evidence on history or exam. No acute concern for acute cord compression or cauda equina syndrome. Recommended limiting polypharmacy and daytime MRI brain and thoracic/lumbar. Epidural stimulator was noted to be of battery as patient has lost her larger. I have reviewed and updated the following: Past Medical History, Family History, Social History, andAllergies. Current Outpatient Medications on File Prior to Encounter: acetaminophen (TYLENOL) 500 mg capsule, Take 2 capsules (1,000 mg total) by mouth every 6 (six) hours as needed for pain. Start the day of surgery. albuterol (PROVENTIL HFA,VENTOLIN HFA) 90 mcg/actuation inhaler, Inhale 2 puffs every 6 (six) hoursas needed for wheezing or shortness of breath. Arnuity Ellipta 100 mcg/actuation diskus inhaler, Inhale 1 puff daily. aspirin 325 mg tablet, Take 1 tablet (325 mg total) by mouth every evening. atorvastatin (LIPITOR) 80 mg tablet, Take 1 tablet (80 mg total) by mouth at bedtime. benzonatate (TESSALON PERLES) 100 mg capsule, Take 100 mg by mouth 3 (three) times a day as needed for cough. buPROPion XL (WELLBUTRIN XL) 150 mg 24 hr tablet, Take 150 mg by mouth every morning. xjswqwwtyr-siatusjnkdbde-ekqz (ESGIC) 50-325-40 mg per tablet, Take 1 tablet by mouth every 6 (six)hours as needed for migraine. cetirizine (ZyrTEC) 10 mg tablet, Take 10 mg by mouth 2 (two) times a day. cholecalciferol (VITAMIN D3) 125 mcg (5,000 Unit) tablet, Take 125 mcg by mouth every morning. clindamycin (CLEOCIN T) 1 % external solution, Apply 1 application topically 2 (two) times a day. Apply to face. cyanocobalamin, vitamin B-12, 2,500 mcg lozenge, Take 1 tablet by mouth daily. diazePAM (VALIUM) 10 mg tablet, Take 10 mg by mouth 2 (two) times a day as needed. diclofenac sodium (VOLTAREN) 1 % gel, Apply 2-4 g topically 4 (four) times a day as needed. diphenhydrAMINE (BENADRYL) 25 mg tablet, Take 75 mg by mouth at bedtime. esomeprazole (NexIUM) [address] capsule, Take 40 mg by mouth 2 (two) times a day before breakfast and dinner. FLUoxetine (PROzac) 40 mg capsule, Take 80 mg by mouth every morning. furosemide (LASIX) 40 mg tablet, Take 40 mg by mouth daily. ipratropium-albuteroL (DUONEB) 0.5-2.5 mg/3 mL nebulizer solution, Inhale 3 mL by nebulization 4 (four) times a day as needed for shortness of breath or wheezing. lamoTRIgine (LaMICtal) 200 mg tablet, Take 200 mg by mouth 2 (two) times a day. MAG-G 27 mg magnesium (500 mg) tablet, Take 1 tablet by mouth at bedtime. meclizine (ANTIVERT) 25 mg tablet, Take 25 mg by mouth every 6 (six) hours as needed for dizziness. medical cannabis capsule, Take 1-4 capsules by mouth 2 (two) times a day as needed (pain). THC component: 10 mg CBD component: 0 mg medical cannabis oil inhalation, Inhale as needed (pain). Vape THC: 5 mg dose - per pt medical cannabis oil oral, Take 1 each by mouth as needed (pain). 1 spray as needed. 5 mg THC multivit-min/iron/folic/wpi166 (HAIR, SKIN AND NAILS ADVANCED ORAL), Take 1 tablet by mouth daily. ondansetron ODT (ZOFRAN-ODT) 8 mg disintegrating tablet, Take 1 tablet by mouth 3 (three) times a day as needed for nausea. oxyCODONE (ROXICODONE) 10 mg IR tablet, Take 10 mg by mouth every 4 (four) hours as needed for pain. oxyCODONE (ROXICODONE) 5 mg immediate release tablet, Take 1 tablet (5 mg total) by mouth every 4 (four) hours as needed for severe pain or score 7-10 of 10 Indication: Acute Pain, Acute Pain Exception. polyethylene glycol (MIRALAX) 17 gram/dose oral powder, Take 17 g by mouth as needed for constipation. pregabalin (LYRICA) 300 mg capsule, Take 600 mg by mouth 2 (two) times a day. QUEtiapine (SEROquel) 50 mg tablet, Take 50 mg by mouth at bedtime. rOPINIRole (REQUIP) 2 mg tablet, Take 2 mg by mouth at bedtime. sennosides-docusate sodium (SENOKOT-S) 8.6-50 mg per tablet, Take 1 tablet by mouth 2 (two) times aday. tiZANidine (ZANAFLEX) 4 mg tablet, Take 4-8 mg by mouth every 8 (eight) hours as needed for muscle spasms. Muscle spasms traMADoL (ULTRAM) 50 mg tablet, Take 1 tablet (50 mg total) by mouth every 6 (six) hours as needed for severe pain or score 7-10 of 10 Indications: Acute Pain, Acute Pain Exception. valACYclovir (VALTREX) 500 mg tablet, Take 500 mg by mouth daily. zonisamide (ZONEGRAN) 100 mg capsule, Take 300 mg by mouth 2 (two) times a day. REVIEW OF SYSTEMS Pertinent items are noted in HPI; all other review of systems was negative. OBJECTIVE VITAL SIGNS Temperature: [36.2 ??C-37.4 ??C] 36.2 ??C Resp Rate: [16-18] 16 Blood Pressure: (97-138)/(61-98) 104/63 SpO2: [92 %-99 %] 96 % Height: [151 cm] 151 cm Weight: [63.5 kg-66.3 kg] 66.3 kg BSA (Calculated - sq m): [1.67 sq meters] 1.67 sq meters BMI (Calculated): [29.1 kg/m??] 29.1 kg/m?? Pulse Rate: [58-84] 60 PHYSICAL EXAM General: Patient is appears uncomfortable., well-groomed, and laying in bed. Speaks slowly Eyes: Pupils equal, round, and reactive to light and accomodation, extraocular muscles intact. ENT: Moist mucous membranes in oropharynx. Oropharynx without erythema or exudate. Lymph: No lymphadenopathy (cervical, supraclavicular) CV: Regular rate and rhythm with normal S1 and S2. No murmurs, rubs, or gallops. No peripheral edema. Lungs: Clear to auscultation bilaterally. No wheezes, crackles, or rales. Abdomen: Soft, non-tender, and non-distended. No masses. No rebound/guarding. No hepatosplenomegaly.Bowel sounds present. Skin/MSK: Skin warm, dry, and well perfused. No rashes or other lesions. No swollen or erythematous joints. Left arm in sling 2/2 recent arthroplasty. Tenderness to palpation over her left hip. Neuro: Alert and oriented to person, place, and time. Cranial nerves 2-12 grossly intact. 4-5/5 strength in lower extremities and right upper extremity.. Sensation grossly intact, but moderately diminished in lower extremities bilaterally. Diminished peripheral jhaveri in right eye. DIAGNOSTICS I have reviewed the labs, xray, and diagnostics from admission. ASSESSMENT / PLAN Ms. Mosquera is hospitalized on [place] [id number] ([facility]) for evaluation and management of Weakness General. 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 Patient states the combination of headaches, blurry , and dizziness have led to ataxia and difficulty with mobility. She has an extensive history of falls, and states she falls on average 15 days a month multiple times a day. Over the past 6 weeks she has noted a dramatic increase in amount of falls. She can not think of any precipitating factor. No recent head injury or loss of consciousness. She denies any recent medication changes. Of note, she does use medical marijuana, oxycodone, and tramadol for pain management. Neurology was consulted for initial concern of cauda equina syndrome (urinary incontinence, subjective decreased rectal tone in ED) but found no evidence on history or exam. Recommended limiting polypharmacy and daytime MRI brain and thoracic/lumbar. CT head at outside hospital with no acute intracranial findings. Hip x-ray with moderate bilateral hip osteoarthritis and left hip chondrocalcinosis. Lumbar spine x-ray with lower lumbar posterior decompression and multilevel degenerative disc and facetdisease. Epidural stimulator in place at T7/T8. CT neck angiogram stable showing embolization with occlusion of VG segment of right vertebral artery for prior V3 for dissection and stable small left paraclinoid ICA aneurysms. Patient's presentation is multifactorial and likely all due to chronic conditions (ataxia, headaches, blurry vision, dizziness). She is not endorsing any new or worsening symptoms aside from an increase in the frequency of falls. 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 Combining that with polypharmacy, patient likely has very poor mobility and balance. We will hold any unnecessary meds, rule out any acute neurological deficits through MRI, and order PT/OT. Notable home meds include Wellbutrin, fluoxetine, lamotrigine, pregabalin, zonisamide, oxycodone, and tramadol. A thorough med rec needs to be performed. #Generalized Weakness #Hx Stroke 2/2 vertebral artery dissection s/p embolization #Blurred vision of right eye w/ diminished peripheral jhaveri #Ataxia c/b recurrent falls #Dizziness #Chronic Pain #Migraines #Polypharmacy -Consult to neurology, MRI Brain/Lumbar/Thoracic Spine to rule out acute changes -Consider geriatric consult for polypharmacy -Consider pain consult for f/u charging epidural pain stimulator -Consult to PT/OT -Consult to social work -Acetaminophen 1g q6h -Home oxycodone 10 mg q4hr, 5 mg PRN breakthrough #Nighttime Incontinence #Overflow Incontinence -Post-void residual -Urinalysis #Neuropathy #Pre-diabetes Last A1c 6.1%, 01/2021 -Repeat A1c -Vitamin B12 assay -Home pregabalin #Hyperlipidemia -Continue atorvastatin 80 mg daily Baseline Mobility: BMAT Level 3 (Able to stand but cannot take steps without help) Diet: general diet Tubes/lines: PIV VTE prophylaxis: enoxaparin Code status: Full Code documented in this encounter Procedure Notes Scooter Tony APRN, C.N.P. - 06/15/2022 8:47 PM CDTAssociated Order(s): Critical Care Procedure Critical Care Date/Time: 06/15/2022 8:47 PM Performed by: Scooter Tony APRN, C.N.P. Authorized by: Scooter Tony APRN, C.N.P. Critical care provider statement: Critical care total time (minutes): 45 Critical care time was exclusive of: separately billable procedures and treating other patients Critical care was necessary to treat or prevent imminent or life-threatening deterioration of the following conditions: PBX MECHANIC failure or compromise Critical care was time spent personally by me on the following activities: ordering and review of radiographic studies, ordering and review of laboratory studies, discussions with primary provider, discussions with consultants, examination of patient, review of old charts nicole-evaluation of patient's condition Scooter Tony APRN, C.N.P. 06/15/222046 documented in this encounter Consult Notes Kristie Landin R.N. - 06/18/2022 8:04 AM CDTAssociated Order(s): IP CONSULT TO CARE MANAGEMENT SUBJECTIVE Referral Data Home health reconnect patient declined additional resources. Anticipated Needs Bathing, Dressing, Grooming/hygeine, Meal preparation, Medication set- up/administration, Housekeeping, Shopping, Transportation use (drive car, use taxi/bus) Tub/shower chair/bench, Grab bars - toilet, Grab bars - wall Home health Grab Bars Support from family Home-Health Care [facility] [place] OBJECTIVE Corporate Legal Manager met with patient to discuss final discharge plans. Patient is agreeable to restart her home health nursing and OVERAGE SHORTAGE AND DAMAGE CLERK along with PT. Patient will have her friend transport her home today. ASSESSMENT / PLAN Assessment The patient appear to have insight into the patient's needs at this time and are planning appropriately for discharge needs. They report agreement with the below plan with no further questions at this time. Plan [facility] Georgette RN: [phone] Home health requesting an AVS discharge summary be faxed to them to verify patient's medications. Contact: Georgette NURSING: - Complete documentation in the Discharge Navigator including Nursing Report Info and Facility/NextLevel of Care Info - Call report and arrange for the patient???s first visit. - Send required packet of dismissal information with patient, including After Visit Summary and advance directive. PRIMARY SERVICE: - Please provide a non-[facility] home health order for resumption of previous [...] to follow and assist if needs arise. Cris Landin R.N. 06/18/2022 IhClaire caballero O.T., [facility] - 06/17/2022 9:53 AM CDT Occupational Therapy Acute Hospital Inpatient Evaluation/Treatment SUBJECTIVE Patient's Name: Angie Mosquera Referring/Attending Provider: Saul Pollard M.D. 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 Sinusitis 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 Nicotine Dependence Cigarettes Thrombosis Arterial (HCC) Transient Ischemic Attack Aneurysm Cerebral Unruptured (HCC) Patent Foramen Ovale (HCC) Mucocele Nasal Sinus Stroke Cerebrovascular Accident Personal History 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 Dissection Vertebral Artery (HCC) Bipolar II Disorder (HCC) Opioid Moderate Or Severe Use Disorder (Dependence) Uncomplicated (HCC) Nicotine Dependence Unspecified Other Tire Buster Current Drug Therapy Direct Infection Of Left Shoulder In Infectious And Parasitic Diseases Classified Elsewhere (HCC) Pain Shoulder Left Anemia Primary Osteoarthritis Shoulder Left Weakness General Past Surgical History: Procedure Laterality Date ABDOMINOPLASTY ARTHROPLASTY - RESECTION SHOULDER Left 12/30/2021 Procedure: ARTHROPLASTY RESECTION SHOULDER.; Surgeon: Cyrus Polk M.D.; Location: [facility] ARTHROPLASTY REPLACEMENT TOTAL SHOULDER Left 02/26/2022 Procedure: ARTHROPLASTY REPLACEMENT TOTAL SHOULDER.; Surgeon: Jam, Cyrus W, M.D.; Location: [facility] ARTHROPLASTY REPLACEMENT TOTAL SHOULDER Left 05/18/2022 Procedure: ARTHROPLASTY REPLACEMENT TOTAL SHOULDER.; Surgeon: Cyrus Polk M.D.; Location: [facility] OR BACK SURGERY 1998 lumbar fusion BARIATRIC SURGERY with revision in 2006 CARPAL TUNNEL RELEASE CERVICAL FUSION C4 - T1 discectomy, fusion, hardware removal CHOLECYSTECTOMY EXTRADURAL COMPUTER NAVIGATION N/A 12/07/2019 Procedure: EXTRADURAL COMPUTER NAVIGATION.; Surgeon: Darlin Olmedo M.D.; Location: [facility] FOOT SURGERY Left metal plate HYSTERECTOMY JOINT REPLACEMENT Bilateral TKAs KNEE ARTHROPLASTY MASTOPEXY OTHER CONVERTED SHX (SEE COMMENT) N/A 05/21/2008 >Esophagogastroduodenoscopy with biopsy and dilation. SHOULDER SURGERY Left TSA, reverse SINUSOTOMY ENDOSCOPY FRONTAL Bilateral 12/07/2019 Procedure: SINUSOTOMY ENDOSCOPY FRONTAL.; Surgeon: Darlin Olmedo M.D.; Location: [facility] SPINAL CORD STIMULATOR IMPLANT TUBAL LIGATION reversed 1993 History of Present Illness:Patient is a 57-year-old, female, admitted with complaints of headache, blurred vision, dizziness and ataxia. Patient with recent left shoulder surgery in immobilizer. Patient diagnosed with generalized weakness secondary to polypharmacy PMH: Bilateral occipital neuralgia, cervical spondylosis, chronic pain with epidural stimulator, fibromyalgia, nicotine, left ICA aneurysm, ischemic infarcts, pre DM, HLD, neuropathy. Occupational Profile: Prior Function/Occupational Profile Dominant Hand: Right Lives With: Alone Receives Help From: reformatory attendant, Family, Friend(s) (Son lives in apt next to her.) ADL Assistance: Required assistance ADL Assistance Comments: Gets help from ORE PUNCHER for her bath/shower 3x/week, and for her meals, RN once every 2 weeks. IADL/Homemaking Assistance: Required assistance IADL/Homemaking Assistance Comments: Gets help for housecleaning Driving: Does not drive Driving Comments: Friend assists Occupational Role: On disability Occupational Role Comments: Previously worked at a [employer] Prior Mobility/Functional Transfers Level of Ermine: Needs assistance Previous Transfer/Mobility Assistance Comments: Patient reports she asks for help often from her sonas he just lives next door. Gait Devices/Wheelchair Used Comments: No AD since shoulder sugery. Home Living Type of Home: Apartment Home Layout: One level Home Access: Level entry Bathroom Shower/Tub: Tub/shower unit Tub/shower unit location: Main floor Bathroom Toilet: Standard Bathroom Accessibility: Yes How Accessible: Accessible via walker Home Equipment Home Adaptive Equipment: Medical alert device Gait Devices Owned: Four-wheeled walker, Cane Bathroom Equipment: Hand-held shower head, Grab bars in shower Family/Caregiver Present: No Patient/Caregiver Goals: Patient would like to return home and obtain an electric scooter. Patient Comments: Patient agreeable to OT session. Patient denied pain at this time. Fall Risk (65 and older) Fall in the last 12 months: Yes Did you have an injury with the fall?: No Are you fearful of falling?: No Precautions Weight Bearing Status: Nonweightbearing left upper extremity from previous surgery Other Precautions: Fall, dizziness, CVAs, cognition/safety awareness, impulsivity OBJECTIVE Angie's NOHARM modalities were discussed during their therapy session. Vitals not formally assessed during session. No concerns during chart review and the patient had no signs or symptoms consistent with vital changes during therapy session. General ROM / Strength Screening ROM - Upper Extremity Screen: Impaired left ROM - Lower Extremity Screen: Addressed, no concerns noted Strength - Upper Extremity Screen: Impaired left Strength - Lower Extremity Screen: Addressed, no concerns noted Cognition Cognitive assessment method: Therapist observations Attention: Impairments noted Initiation: No difficulty with initiation Orientation: Oriented X4 Following Commands: One Step Commands One Step Commands: Follows one step commands with increased time, Follows one step commands with repetition Safety/Judgment: Impairments noted Self-monitoring/Self-correct Consistently: Moderate Insight/Awareness of Deficits: Moderate Impulsivity: Moderate Cognition Comments: Patient with history of CVA. Unsure of baseline cognition. Patient appeared a bit drowsy with glazed look Bed Mobility - Supine to Sit # of Assistants: 0 Level of Assistance: Modified Independent Device: Bed rail, Head of bed elevated Bed Mobility - Sit to Supine # of Assistants: 0 Level of Assistance: Modified Independent Device: Bed rail, Head of bed elevated Sit to Stand Transfers # of Assistants: 1 Transfer Surface: Bed, Toilet/Commode Transfer Equipment: Gait belt, Other (comment) (hand held assistance) Level of Assistance: Supervision/set-up Assessment/Delivery: Assessed, Instructed, Facilitated Comments: No physical assistance but supervision to stand by assistance for safety. Patient refusinguse of cane. Stand to Sit Transfers # of Assistants: 1 Transfer Surface: Bed, Toilet/Commode Transfer Equipment: Gait belt (hand held assistance) Level of Assistance: Supervision/set-up Assessment/Delivery: Assessed, Facilitated Comments: No physical assistance but supervision to stand by assistance for safety Toilet Transfers # of Assistants: 1 Transfer Surface: Toilet Transfer Approach: To and from, Ambulating Transfer Equipment: Grab bars Level of Assistance: Modified independent, Hand held assistance, Contact guard assistance Assessment/Delivery: Assessed Toilet Transfers Comments: Patient quite impulsive and poor safety awareness; contact guard assistance for safety and to reduce fall risk UE Dressing UE Dressing Level of Assistance: Maximal assistance UE Dressing Comments: Maximal assist to complete upper body dressing and management of shoulder immobilizer. Patient quite lethargic, yet impulsive required assistance to [facility] gown and shoulder immobilizer to maximize safety and maintain upper extremity restrictions. Toileting Toileting Location: Toilet Toileting Delivery: Assessed, Instructed, Facilitated, Therapist Assisted Toileting Adaptive Equipment: Grab bars Toileting Level of Assistance: Supervision/Set-up Toileting Comments: Stand by assistance to contact guard assistance for transfer, clothing management and hygiene. ADL Comments ADL Comments: Facilitated and assessed functional mobility to safely complete mobility related activities of daily living including toileting, bathing, and grooming tasks. Patient ambulated household distances with gait belt and hand- held assistance on right upper extremity. Patient refusing trial/useof single- point cane at this time. Patient with lower extremity weakness and impaired balance demonstrating ataxic gait. Patient also endorse visiual deficits that impact her gait safety. Educated on role of occupational therapy in acute care setting, current functional level and the plan of care including occupational therapy goals and current discharge recommendations. Educated patient on current recommendations for safety in functional mobility and activities of daily living. The patient educatedon safe transfer techniques with functional activity using gait aid. Team Communication: Patient's nurse was contacted and patient's status was discussed Outcome Measures [facility] Inpatient Short Form: Putting on and taking off regular lower body clothing?: Total Putting on and taking off regular upper body clothing?: Total Taking care of personal grooming such as brushing teeth?: A Little Bathing (including washing, rinsing, drying)?: A lot Toileting, which includes using toilet, bedpan, or urinal?: A Little Eating meals?: A Little Daily Activities Raw Score (max 24): 13 Daily Activities Standardized Score: 32.03 Interpretation: Clinicians answer the -[facility] Inpatient Short Form based on observed patient activityand/or clinical judgement (ie. patient can be scored without physically performing each activity) Based on scoring guidelines using the raw score value: Those going to home had an average score at or above 18 Those going to facility had an average score at or below 17 Patient was left in bed with bed alarm on at end of session with call light in reach, all needs met and questions answered. Contact monitoring: PPE used during therapy: Therapist was wearing the following PPE throughout entire session: surgicalmask, eye protection, and gloves Patient was wearing a mask during therapy session: no Additional Staff Present During Session: Kennedi Corcoran CNP Assessment Discharge Therapy Needs - OT: Ongoing skilled occupational therapy Skilled therapy can include occupational therapy provided by home health, outpatient clinic, or a post-acute facility. The location of these services is determined by the patient's care team in partnership with patient/family. Level of Care Needed - OT: Assistance with toileting, Assistance with toilet/shower transfers, Assistance with medication set up/administration, Assistance with showering/bathing, Assistance with dressing, Assistance with meal preparation, Assistance with personal financial planner, Assistance with shopping, Assistance with housekeeping, Assistance with transportation Recommended Adaptive Equipment - OT: Other (Comment) (ongoing assessment) Barriers to Discharge Home: Fall risk, Safety concerns, Limited caregiver availability Clinical Impression: Patient present with weakness, falls, dizziness, ataxic gait and recent left shoulder surgery in shoulder immobilizer with non-weight bearing precautions. Patient lives alone in an apartment where her son lives next door and assists with activities of daily living and instrumental activities of daily living as needed. Patient reports independence with mobility but endorses several falls in past year. Currently, patient presents with impairments including left shoulder restrictions, weakness, impaired balance, low activity tolerance, cognitive deficits with limited safety awareness resulting in the following functional deficits: decreased safety and independence in activities of daily living and mobility. Patient quite lethargic and fatigued during session. Patient tangential and had increased difficulty with concentration impacting her safety awareness. Patient required handheld assistance for all mobility due to refusing to use single point cane. Patient participated in upper body dressing with maximal assistance due to left shoulder immobilizer and left shoulder restrictions. Patient stand by assistance to contact guard assistance for toileting tasks. Patient appears to be functioning belowbaseline, Occupational therapy is indicated during the patient's stay to address functional limitations and progress independence with activities of daily living. Based on my assessment, the patient needs assistance x1 with activities of daily living, instrumental activities of daily living, and mobility. How these needs are met after hospitalization would be best determined in collaboration with the patient/family and our care management team. Rehab potential: Ms. Mosquera has fair potential to achieve established occupational therapy goals within the time frame outlined below. Tiered OT Evaluation Codes: Personal Factors: Safety awareness, History of falls, Needs assistive device, Living situation Occupational Profile and History review: Extensive Performance Deficits: at least 5 performance deficits Evaluation Complexity: High Functional Goals: OT Goal #1: Patient will complete toileting tasks including transfer, clothing management and hygiene with supervision using adaptive equipment as needed to maximize safety and independence to reduce dependence on others. OT Goal #1 Status: Progressing OT Goal #2: Patient will complete lower body dressing with supervision using adaptive equipment as needed to maximize safety and independence to reduce dependence on others. OT Goal #2 Status: Ongoing OT Goal #3: Patient will complete standing grooming task with supervision to increase independence and reduce dependence on others. OT Goal #3 Status: Ongoing OT Goal #4: Patient will actively participate in cognitive testing to determine level of assistance needed for safe discharge planning. OT Goal #4 Status: Ongoing Plan Occupational Therapy Attestation Statement: Patient agrees with the plan of care and goals. OT Frequency: OT Amount: 1 visit per day OT Frequency: 5 times per week OT Inpatient Duration : Until goals are met or hospital discharge Requires Inpatient OT Follow-Up: Yes OT - Next Inpatient Appointment: 06/18/22 Plan: Plan of care initiated OT Plan Comments: Next Session: o-log/cog-log, standing grooming, one handed lower body dressing techniques Treatment interventions may include: Treatment Interventions: Therapeutic exercise, Therapeutic functional activity, Neuromuscular re-education, Self-care/home management, Cognitive skills training Billing: Time Spent with Patient Evaluations OT Eval - High Complexity: 10 min Therapeutic Interventions Home Management Training (min): 27 min Time Tracking Total Timed Units (min): 27 min Total Treatment Time (min): 37 min Claire Mandujano O.T., MOT Kristie Landin R.N. - 06/16/2022 2:43 PM CDT Discharge Planning Assessment SUBJECTIVE Assessment Information Referral Source: product safety technician Referral Reason: Discharge Planning Primary Language: Nicaraguan Ordnance Officer Services Used: No Person(s) present during interview: Person(s) Present During Interview: patient History of Present Illness #1 Weakness General Social History Family / Household: lives alone Support System: children and home care staff Patient's Home Environment: apartment Finance/Insurance Primary insurance: MEDICARE A AND B Secondary insurance: MEDICA Does the patient have any financial concerns? no benefits: No Advance Directives Legal Decision Maker: Self Advance Directives: N/A Advance Directives Status: Information given OBJECTIVE Baseline Functional Status Baseline Activities of Daily Living Mobility: Requires aide of device Dressing: Needs assistance Feeding: Independent Bathing: Needs assistance Grooming: Needs assistance Toileting: Independent Behavior: Appropriate, Pleasant, Calm Communication: Talks, Understands speaking, Understands [place] Shopping: Needs assistance Transportation: Support from family Medication Management: Independent Housekeeping: Dependent Meal Prep: Needs assistance Managing Finances: Needs assistance Assistive Devices: Cane, Tub/shower chair/bench Services/Resources: Home health Agency Name: [facility] Services Provided: assisted twice monthly, OVERAGE SHORTAGE AND DAMAGE CLERK 3 times a week Baseline Services/Resources Primary care clinic and provider: ELSEWHERE, PCP Services/Resources: Home health Additional Resources: none Anticipated Needs Functional Status: Bathing, Dressing, Grooming/hygeine, Meal preparation, Medication set-up/administration, Housekeeping, Shopping, Transportation use (drive car, use taxi/bus) Assistive Devices: Tub/shower chair/bench, Grab bars - toilet, Grab bars - wall Services/Resources: Home health Agency Name: [facility] Provided: assisted twice monthly, OVERAGE SHORTAGE AND DAMAGE CLERK 3 times a week Anticipated Modifications to the Patient's Home: Grab Bars Transportation Needs: Support from family Does the patient need discharge transport arranged?: No Phone Number for Ride/Caregiver: son or daughter Anticipated Discharge Destination: Home-Health Care [facility] [place] ASSESSMENT / PLAN Assessment: The product safety technician met with Angie Mosquera to discuss her current hospitalization and home goingneeds. The patient was unaccompanied. The patient was a reliable historian. The role of product safety technician was reviewed. The patient reviewed her prior level of care and support system. The patient receives support from her daughter, son, and home care staff . The patient described her living environment as a apartment with elevator access with level entry. Housekeeping, grocery shopping, meal prep, and other household responsibilities have previously been completed by patient and patient's son. product safety technician discussed the patient's potential needs at [facility] based on their home setting, previous needs and responsibilities, homebound status, and relevant assessments with the patient. The patient will be safe and supported to return home alone when medically ready. Support will be provided by son, daughter, home care staff. The patient demonstrated und erstanding when discussing her home going plans and anticipated needs. Prior to this admission, patient was requiring assistance with her ADL's. She currently has home health through [facility] for assisted twice monthly and [facility] 3 times a week for 1 1/2-2 hours each time. She states she has a cane that she rarely uses and a shower chair which is too big and does not use as well. Her son lives in the apartment next to her and she will call him to assist her as needed. She states her son makes most of her meals and assists with shopping. Her daughter assists with transportation needs. Patient states that her primary care provider is in the process of ordering a motorized scooter. Patient does not have an advanced directive, but was open to accept the information. Her pharmacy places all of her medications in packages which she states she takes as directed. At this time, the care team anticipates the patient requires the following service(s) to be reconnected: home healthcare. The patient identified the following as their current vendor(s): [facility]. After reviewing the patient's chart and meeting with the patient, the product safety technician deemed the LACE+/readmission questions were appropriate. The patient explained that her current admission was due to weakness, falls.The patient stated that she had no difficulty obtaining, understanding, or using her medications as directed. The patient reports no other concerns regarding her medications. A primarycare provider has been identified; The patient has not been having difficulty making or attending appointments with his PCP. The patient stated her current readmission could not have been prevented. The product safety technician will share this information with the care team. The patient reports understanding that she will dismiss from the hospital when medically stable. Pending hospital course and medical readiness, no barriers to dismissal have been identified at this time. Plan: The patient agrees with the following plan. Patient's anticipated discharge disposition is: Home with Home Healthcare Reconnected: [facility] Transportation upon dismissal will be provided by family--son or daughter . product safety technician recommended a shower seat, grab bars, home delivery of groceries, and reaching out to family, friends, and neighbors for assistance. product safety technician provided information regarding the dismissal process and the Advance Health Care Planning: Making Your Wishes Known [id number] booklet along with education on the benefits of completing an advance directive and resources that may assist them in this process. The patient sharedno further questions or concerns regarding advance directives. The patient appears to have an understanding of how to complete an advance directive and reported awareness of resources to assist them. product safety technician placed or requested the following hospital-based consult orders and/or referrals: PT/OT. product safety technician will continue to assess for homegoing needs with the interdisciplinary team. product safety technician encouraged the patient to reach out with any questions/concerns. Patient to discharge with home health care. [facility] Georgette RN: [phone] Home health requesting an AVS discharge summary be faxed to them to verify patient's medications. Contact: Georgette NURSING: - Complete documentation in the Discharge Navigator including Nursing Report Info and Facility/NextLevel of Care Info - Call report and arrange for the patient???s first visit. - Send required packet of dismissal information with patient, including After Visit Summary and advance directive. PRIMARY SERVICE: - Please provide a non-[facility] home health order for resumption of previous [...] and assist if needs arise. Signed by: Cris Landin R.N. 06/16/2022 Nikki Cook APRN C.N.PBritton, M.S. - 06/16/2022 11:01 AM CDTAssociated Order(s): Pain Medicine consult (hospital) SUBJECTIVE Pain Medicine consult (hospital) Referring Provider: Arvind Emanuel M.B.B.S. Reason for Consult: Pt on multimodal pain regimen with fall history. Can you pls help optimizing her pain med regimen HISTORY OF PRESENT ILLNESS Angie Mosquera is a 57 y.o. female with a complex PMH significant for multiple prior strokes 2/2 right vertebral artery non-healing dissection s/p embolization 01/2021 (on ASA), left paraclinoid ICA aneurysm, DM2, HTN, HLD, gastric bypass (1999), possible esophageal dysmotility, chronic pain (occipital neuralgia, cervical spondylosis and spinal fusion, fibromyalgia) s/p SCS device (placed 2019, currently not functioning), and multiple recent shoulder surgeries admitted with generalized weakness, urinary incontinence, and ataxia with falls. Patient is documented as a poor historian. Pain service consulted to assist with medication optimization. PDMP review notes multiple prescriptions from various providers with known recent shoulder surgeriesand chronic pain. Prescriptions are provided by pain management through [facility] and her PCP Dr. Blackwell. She has worked with them on the continuum. This is consistent with her report. Most recent prescriptions fill history as follows: 05/26/22: oxycodone 10 mg, #120 05/20/22: oxycodone 5 mg, #30 05/20/22: tramadol 50 mg, #24 05/10/22: Lyrica 300 mg, #120 04/05/22: diazepam 10 mg, #60 She reports chronic pain affecting her low back with prior fusion, radiculopathy with SCS implant, cervical spine pain with prior fusion, knee pain, and shoulder pain. She has struggled with chronic pain and has been on opioid and non opioid therapies for years. She denies any changes to her dosing or type of medications in the recent months, except tramadol, which is not taken chronically. She reports strokes over the 1.5 years, not sure of how many she has had. She also notes impaired gait since her strokes, favoring the left side. She will fall regularly, but typically has someone with her to catch her. She is unable to express the duration of worsening symptoms. She has had a [employer] SCS for years for left greater than right lumbosacral radicular pain, last reportedly revised at [facility] in 2019. The initial implant date is unknown. She had turned the device off for one her surgeries, then misplaced the peoplesoft programmer. She has received a new peoplesoft programmer, but has not gotten to using the new device. It is at her home. She thinks she has not used the SCS for several months. CURRENT MEDICATIONS: Acetaminophen 1 g four times a day Iashiebhgiclw-wuhbzdez-rncgjmvbq-Lipoderm cream twice a day Diclofenac 1% gel four times a day Fluoxetine 10 mg daily (home) Lamotrigine 200 mg twice a day (home) Oxycodone 5-10 mg q4h as needed (home qid as needed) Pregabalin 300 mg twice a day (home) Ropinirole 2 mg HS (home) Tramadol 50 mg q6h as needed (home) HOME MEDICATIONS: Current Outpatient Medications on File Prior to Encounter Medication Sig Last Dose acetaminophen (TYLENOL) 500 mg capsule Take 2 capsules (1,000 mg total) by mouth every 6 (six) hours as needed for pain. Start the day of surgery. Past Month albuterol (PROVENTIL HFA,VENTOLIN HFA) 90 mcg/actuation inhaler Inhale 2 puffs every 6 (six) hours as needed for wheezing or shortness of breath. 06/15/2022 Arnuity Ellipta 100 mcg/actuation diskus inhaler Inhale 1 puff daily. 06/15/2022 aspirin 325 mg tablet Take 1 tablet (325 mg total) by mouth every evening. 06/15/2022 atorvastatin (LIPITOR) 80 mg tablet Take 1 tablet (80 mg total) by mouth at bedtime. Past Month benzonatate (TESSALON PERLES) 100 mg capsule Take 100 mg by mouth 3 (three) times a day as needed for cough. Past Month buPROPion XL (WELLBUTRIN XL) 150 mg 24 hr tablet Take 150 mg by mouth every morning. Past Week rkyybyatqd-sbjhiteomcjvk-fkop (ESGIC) 50-325-40 mg per tablet Take 1 tablet by mouth every 6 (six) hours as needed for migraine. Past Month cetirizine (ZyrTEC) 10 mg tablet Take 10 mg by mouth daily. 06/15/2022 cholecalciferol (VITAMIN D3) 125 mcg (5,000 Unit) tablet Take 125 mcg by mouth every morning. Past Week clindamycin (CLEOCIN T) 1 % external solution Apply 1 application topically 2 (two) times a day. Apply to face. Past Week cyanocobalamin, vitamin B-12, 2,500 mcg lozenge Take 1 tablet by mouth daily. Past Week diazePAM (VALIUM) 10 mg tablet Take 10 mg by mouth 2 (two) times a day as needed. Past Month diclofenac sodium (VOLTAREN) 1 % gel Apply 2-4 g topically 4 (four) times a day as needed. Past Week diphenhydrAMINE (BENADRYL) 25 mg tablet Take 75 mg by mouth at bedtime. Past Week esomeprazole (NexIUM) [address] capsule Take 40 mg by mouth every morning before breakfast. Past Week FLUoxetine (PROzac) 40 mg capsule Take 80 mg by mouth every morning. 06/15/2022 furosemide (LASIX) 40 mg tablet Take 40 mg by mouth 2 (two) times a day. Per patient usually takes daily Past Week lamoTRIgine (LaMICtal) 200 mg tablet Take 200 mg by mouth 2 (two) times a day. 06/15/2022 MAG-G 27 mg magnesium (500 mg) tablet Take 1 tablet by mouth at bedtime. Past Week meclizine (ANTIVERT) 25 mg tablet Take 25 mg by mouth every 6 (six) hours as needed for dizziness. Past Month medical cannabis capsule Take 1-4 capsules by mouth 2 (two) times a day as needed (pain). THC component: 10 mg CBD component: 0 mg Past Week medical cannabis oil inhalation Inhale as needed (pain). Vape THC: 5 mg dose - per pt Past Week medical cannabis oil oral Take 1 each by mouth as needed (pain). 1 spray as needed. 5 mg THC Past Week multivit-min/iron/folic/ybh491 (HAIR, SKIN AND NAILS ADVANCED ORAL) Take 1 tablet by mouth daily. Past Week oxyCODONE (ROXICODONE) 10 mg IR tablet Take 10 mg by mouth every 4 (four) hours as needed for pain.Per patient uses 4-5 tablets per day usually 06/15/2022 pregabalin (LYRICA) 300 mg capsule Take 600 mg by mouth 2 (two) times a day. 06/15/2022 QUEtiapine (SEROquel) 50 mg tablet Take 50 mg by mouth at bedtime. Past Week rOPINIRole (REQUIP) 2 mg tablet Take 2 mg by mouth at bedtime. Past Week sennosides-docusate sodium (SENOKOT-S) 8.6-50 mg per tablet Take 1 tablet by mouth 2 (two) times a day. Past Week tiZANidine (ZANAFLEX) 4 mg tablet Take 4-8 mg by mouth every 8 (eight) hours as needed for muscle spasms. Muscle spasms Past Week traMADoL (ULTRAM) 50 mg tablet Take 1 tablet (50 mg total) by mouth every 6 (six) hours as needed for severe pain or score 7-10 of 10 Indications: Acute Pain, Acute Pain Exception. Past Week valACYclovir (VALTREX) 500 mg tablet Take 500 mg by mouth daily. Past Week zonisamide (ZONEGRAN) 100 mg capsule Take 300 mg by mouth 2 (two) times a day. 06/15/2022 ipratropium-albuteroL (DUONEB) 0.5-2.5 mg/3 mL nebulizer solution Inhale 3 mL by nebulization 4 (four) times a day as needed for shortness of breath or wheezing. Unknown naloxone (NARCAN) 4 mg/actuation nasal spray Administer 1 spray into one nostril as directed. SPRAY0.1 MILLILITER BY INTRANASAL ROUTE IN 1 NOSTRIL MAY REPEAT DOSE EVERY 2-3 MINUTES NEEDED ALTERNATING NOSTRILS ondansetron ODT (ZOFRAN-ODT) 8 mg disintegrating tablet Take 1 tablet by mouth 3 (three) times a day as needed for nausea. More than a month polyethylene glycol (MIRALAX) 17 gram/dose oral powder Take 17 g by mouth as needed for constipation. Unknown rizatriptan (MAXALT) 10 mg tablet Take 1 tablet by mouth as directed. May repeat every 2hrs as needed (Max 30mg/24hrs) [DISCONTINUED] oxyCODONE (ROXICODONE) 5 mg immediate release tablet Take 1 tablet (5 mg total) by mouth every 4 (four) hours as needed for severe pain or score 7-10 of 10 Indication: Acute Pain, AcutePain Exception. Hospital Meds: Medications Scheduled Medication Ordered Dose/Rate, Route, Frequency Last Action acetaminophen tablet 1,000 mg (TYLENOL) 1,000 mg, oral, 4x Daily Given, 1,000 mg at 06/16 1345 tirxdrxtocrof-qdwoyoek-ljemapzkw in Lipoderm 2%-0.5%-2% cream 1 g 1 g, top, BID Given, 1 g at aspirin tablet 325 mg 325 mg, oral, QPM Ordered atorvastatin tablet 80 mg (LIPITOR) 80 mg, oral, Daily at bedtime Ordered buPROPion XL 24 hr tablet 150 mg (WELLBUTRIN XL) 150 mg, oral, QAM Given, 150 mg at 06/16 916 clindamycin 1 % external solution 1 application (CLEOCIN T) 1 application, top, BID Given, 1 application at 06/16 922 cyanocobalamin tablet 500 mcg (VITAMIN B12) 500 mcg, oral, Daily Given, 500 mcg at 06/16 921 diclofenac sodium 1 % gel 2 g (VOLTAREN) 2 g, top, 4x Daily Given, 2 g at 06/16 1346 enoxaparin injection 40 mg (LOVENOX) 40 mg, SC, Q24H AMARA Given, 40 mg at 06/16 917 FLUoxetine capsule 80 mg (PROzac) 80 mg, oral, Daily Ordered fluticasone furoate 100 mcg/actuation inhaler 1 puff (ARNUITY ELLIPTA) 1 puff, inhl, Daily Given, 1puff at 06/16 921 furosemide tablet 40 mg (LASIX) 40 mg, oral, Daily Given, 40 mg at 06/16 916 lamoTRIgine tablet 200 mg (LaMICtaL) 200 mg, oral, BID Given, 200 mg at 06/16 921 magnesium oxide tablet 200 mg (MAG-OX) 200 mg, oral, Q24H Ordered pantoprazole DR tablet 40 mg (PROTONIX) 40 mg, oral, Daily before breakfast Given, 40 mg at 06/16 0544 pregabalin capsule 300 mg (LYRICA) 300 mg, oral, BID Given, 300 mg at 06/16 916 rOPINIRole tablet 2 mg (REQUIP) 2 mg, oral, Daily at bedtime Ordered sennosides-docusate sodium 8.6-50 mg per tablet 1 tablet (SENOKOT-S) 1 tablet, oral, BID Given, 1 tablet at 06/16 916 sodium chloride 0.9 % injection 3 mL 3 mL, IV, Q12H AMARA Given, 3 mL at 06/16 917 valACYclovir tablet 500 mg (VALTREX) 500 mg, oral, Daily Given, 500 mg at 06/16 920 zonisamide capsule 300 mg (ZONEGRAN) 300 mg, oral, BID Given, 300 mg at 06/16 916 PRN Medication Ordered Dose/Rate, Route, Frequency Last Action albuterol nebulizer solution 2.5 mg 2.5 mg, nebu, Q6H PRN Ordered benzonatate capsule 100 mg (TESSALON PERLES) 100 mg, oral, TID PRN Given, 100 mg at 06/16 921 prhicyltrh-misbabrizospv-lxqu 50-325-40 mg per tablet 1 tablet (ESGIC) 1 tablet, oral, Q6H PRN Ordered diphenhydrAMINE-zinc acetate 1 % cream 1 application (BENADRYL) 1 application, top, 4x Daily PRN Ordered meclizine tablet 25 mg (ANTIVERT) 25 mg, oral, Q6H PRN Given, 25 mg at 06/16 920 melatonin tablet 1 mg 1 mg, oral, At bedtime PRN Ordered ondansetron ODT disintegrating tablet 8 mg (ZOFRAN-ODT) 8 mg, oral, TID PRN Ordered oxyCODONE IR tablet 10 mg (ROXICODONE) 10 mg, oral, Q4H PRN Given, 10 mg at 06/16 1345 polyethylene glycol powder packet 17 g (MIRALAX) 17 g, oral, PRN Ordered sodium chloride 0.9 % injection 10 mL 10 mL, IV, PRN Ordered sodium chloride 0.9 % injection 3 mL 3 mL, IV, PRN Ordered [Held by provider] traMADoL tablet 50 mg (ULTRAM) (Held by provider since Tue06/16/2022 at 0908 by Maira Haynes M.D..Hold Comments: polypharm) 50 mg, oral, Q6H PRN Given, 50 mg at 06/16 0257 Angie Mosquera's history was reviewed including allergies, current medications, review of systems, family history, medical and surgical history, social history, and problem list. OBJECTIVE VITAL SIGNS Temperature: [36.2 ??C-37 ??C] 36.5 ??C Resp Rate: [16-18] 18 Blood Pressure: (97-138)/(61-98) 113/62 SpO2: [92 %-99 %] 95 % Flow Rate (L/min): [0 L/min] 0 L/min Height: [151 cm] 151 cm Weight: [66.3 kg] 66.3 kg BSA (Calculated - sq m): [1.67 sq meters] 1.67 sq meters BMI (Calculated): [29.1 kg/m??] 29.1 kg/m?? Pulse Rate: [58-82] 82 Vitals: 06/15/22 1659 06/15/22 1850 06/15/22 18506/15/222045 Pain Score: 10 - Worst possible pain 8 8 5 - Moderate pain 06/15/228 06/15/228 06/16/22 0030 06/16/22 0533 Pain Score: 8 3 10 - Worst possible pain 9 06/16/22 0916 06/16/22 0921 06/16/22 0959 06/16/22 1345 Pain Score: 9 9 10 - Worst possible pain 10 - Worst possible pain Pain Assessment Pain Assessment: 0-10 Numeric Pain Intensity Scale (06/16/22 0921 : Gini Newberry, R.N.) Pain Score: 10 - Worst possible pain (06/16/22 1345 : Gini Newberry, R.N.) Pain Type: Acute pain (06/15/221849 : Marixa Steven, M.S.N., R.N.) Pain Location: Shoulder (06/16/22 0533 : Tiffanie Mills RBrittonN.) Pain Orientation: Left (06/16/22 0533 : Tiffanie Mills R.N.) Response to Interventions: Asleep (06/16/22 0357 : Tiffanie Mills R.N.) Resp Rate: 18 (06/16/22 0921 : Gini Newberry R.N.) Respiratory Depth/Rhythm: Regular (06/15/228 : Asia Cortez RBetsy, [facility]) PAIN PHYSICAL EXAM GENERAL: Pleasant, 57 y.o. female, in no acute distress. HEAD: Normocephalic and atraumatic. EYES: Pupils 3 mm. LUNGS: Unlabored respirations. SKIN: Multiple tattoos, piercings. GAIT: left leg weak with ambulation, uses cane, impulsive needing to use the restroom during visit. MUSCULOSKELETAL: left arm immobilized. MENTAL: Alert, oriented, appropriate mood and affect, recent and remote memory intact. ASSESSMENT / PLAN #1 Weakness General #2 Chronic Pain Angie Mosquera is a 57 y.o. female with a complex PMH somewhat unclear as to the duration of symptoms and sequence of events due to the patient's inability to provide adequate history. Her chronic pain medications have been stable, without adjustment to drugs or doses in the recent months. She has been on these therapies for years and follows longitudinally with an outpatient pain provider at [facility]. Though she is on several [employer] acting medications that could increase the risk of neurological side effects, it is unlikely these are contributing to her current acute events. Weaningthese medications may be challenging in the acute setting, as most would require a slow taper and likely alternative agents, which may negatively impact her workup and pain management. The most reasonable plan for weaning would be in a controlled environment with close follow up and possibly with the resource of a pharmacist, unless urgent concerns arise that would require more rapid taper. Really the only medication that would be easy to stop and should have minimal impact to her current status would be the tramadol. Otherwise, recommend she continue with the chronic therapies as able at the discretion of the primary team. RECOMMENDATIONS - stop tramadol due to multiple potential SE that could exacerbate the neurological symptoms as thisis a newer medication - continue home pain regimen as appropriate with close follow up with local team upon discharge - consider pharmacy consult outpatient to address polypharmacy - agree with MRI to rule out organic cause for symptoms - work with [employer] to get her SCS therapy active in the outpatient setting Discussed with Pain Alteration Hand Dr. Kaushik Gustafson. Thank you for allowing the Inpatient Pain Service to be a part of Angie Mosquera's care. The [facility] Inpatient Pain Service will sign off. Please page [phone] with questions. Anthony Shepard PAna, Juice.P.Jolanta., C.S.C.S. - 06/16/2022 10:10 AM CDT Physical Therapy Inpatient Evaluation/Treatment SUBJECTIVE Patient's Name: Angie Ashley Demetri Referring/Attending Provider: Saul Pollard M.D. 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 Sinusitis 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 Nicotine Dependence Cigarettes Thrombosis Arterial (HCC) Transient Ischemic Attack Aneurysm Cerebral Unruptured (HCC) Patent Foramen Ovale (HCC) Mucocele Nasal Sinus Stroke Cerebrovascular Accident Personal History 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 Dissection Vertebral Artery (HCC) Bipolar II Disorder (HCC) Opioid Moderate Or Severe Use Disorder (Dependence) Uncomplicated (HCC) Nicotine Dependence Unspecified Other Tire Buster Current Drug Therapy Direct Infection Of Left Shoulder In Infectious And Parasitic Diseases Classified Elsewhere (HCC) Pain Shoulder Left Anemia Primary Osteoarthritis Shoulder Left Weakness General Past Surgical History: Procedure Laterality Date ABDOMINOPLASTY ARTHROPLASTY - RESECTION SHOULDER Left 12/30/2021 Procedure: ARTHROPLASTY RESECTION SHOULDER.; Surgeon: Cyrus Polk M.D.; Location: [facility] ARTHROPLASTY REPLACEMENT TOTAL SHOULDER Left 02/26/2022 Procedure: ARTHROPLASTY REPLACEMENT TOTAL SHOULDER.; Surgeon: Cyrus Polk M.D.; Location: [facility] ARTHROPLASTY REPLACEMENT TOTAL SHOULDER Left 05/18/2022 Procedure: ARTHROPLASTY REPLACEMENT TOTAL SHOULDER.; Surgeon: Cyrus Polk M.D.; Location: [facility] OR BACK SURGERY 1998 lumbar fusion BARIATRIC SURGERY with revision in 2006 CARPAL TUNNEL RELEASE CERVICAL FUSION C4 - T1 discectomy, fusion, hardware removal CHOLECYSTECTOMY EXTRADURAL COMPUTER NAVIGATION N/A 12/07/2019 Procedure: EXTRADURAL COMPUTER NAVIGATION.; Surgeon: Darlin Olmedo M.D.; Location: [facility] FOOT SURGERY Left metal plate HYSTERECTOMY JOINT REPLACEMENT Bilateral TKAs KNEE ARTHROPLASTY MASTOPEXY OTHER CONVERTED SHX (SEE COMMENT) N/A 05/21/2008 >Esophagogastroduodenoscopy with biopsy and dilation. SHOULDER SURGERY Left TSA, reverse SINUSOTOMY ENDOSCOPY FRONTAL Bilateral 12/07/2019 Procedure: SINUSOTOMY ENDOSCOPY FRONTAL.; Surgeon: Darlin Olmedo M.D.; Location: [facility] SPINAL CORD STIMULATOR IMPLANT TUBAL LIGATION reversed 1993 History of Present Illness: Patient is a 57-year-old, female, admitted with complaints of headache, blurred vision, dizziness and ataxia. Patient diagnosed with generalized weakness secondary to polypharmacy PMH: Bilateral occipital neuralgia, cervical spondylosis, chronic pain with epidural stimulator, fibromyalgia, nicotine, left ICA aneurysm, ischemic infarcts, pre DM, HLD, neuropathy. Prior Function/Occupational Profile Dominant Hand: Right Lives With: Alone Receives Help From: reformatory attendant, Family, Friend(s) (Son lives in apt next to her.) ADL Assistance: Required assistance ADL Assistance Comments: Gets help from [employer] for her bath/shower 3x/week, and for her meals, RN once every 2 weeks. IADL/Homemaking Assistance: Required assistance IADL/Homemaking Assistance Comments: Gets help for housecleaning Driving: Does not drive Driving Comments: Friend assists Occupational Role: On disability Occupational Role Comments: Previously worked at a [employer] Prior Mobility/Functional Transfers Level of Ermine: Needs assistance Gait Devices/Wheelchair Used Comments: No AD since shoulder [facility]. Home Equipment Home Adaptive Equipment: Medical alert device Gait Devices Owned: Four-wheeled walker, Cane Bathroom Equipment: Hand-held shower head, Grab bars in shower Home Living Type of Home: Apartment Home Layout: One level Home Access: Level entry Bathroom Shower/Tub: Tub/shower unit Tub/shower unit location: Main floor Bathroom Toilet: Standard Bathroom Accessibility: Yes How Accessible: Accessible via walker Dominant Hand: Right Family/Caregiver Present: No Patient/Caregiver Goals: Patient would like to return home and obtain an electric scooter. Patient Comments: Patient observed finishing up in bathroom, agreeable to PT evaluation, c/o hip andLBP, shoulder pain. No number given. Precautions Weight Bearing Status: Nonweightbearing left upper extremity from previous surgery Other Precautions: Fall, dizziness, CVAs. Fall Risk (65 and older) Fall in the last 12 months: Yes Did you have an injury with the fall?: No Are you fearful of falling?: No OBJECTIVE Angie's NOHARM modalities were used during their therapy session. Vitals monitored throughout session; within normal ranges. Cognition Arousal/Alertness: Appropriate responses to stimuli Attention: Impairments noted Initiation: No difficulty with initiation Orientation: Oriented X4 Following Commands: Follows all commands/directions without difficulty Safety/Judgment: Impairments noted Self-monitoring/Self-correct Consistently: Moderate Insight/Awareness of Deficits: Moderate Impulsivity: Mild Safety/Judgment Comments: Patient states sometimes she has difficulty getting onto the toilet, question how she is toileting. General ROM / Strength Screening ROM - Upper Extremity Screen: Impaired left ROM - Lower Extremity Screen: Addressed, no concerns noted Strength - Upper Extremity Screen: Impaired left Strength - Lower Extremity Screen: Addressed, no concerns noted Sit to Stand Transfers # of Assistants: 1 Transfer Surface: Bed Transfer Equipment: Gait belt, Single point cane Level of Assistance: Supervision/set-up Assessment/Delivery: Assessed, Instructed, Educated Comments: No physical assist necessary. Stand to Sit Transfers # of Assistants: 1 Transfer Surface: Bed, Chair Transfer Equipment: Gait belt, Single point cane Level of Assistance: Supervision/set-up Assessment/Delivery: Assessed, Educated, Instructed Comments: No physical assist necessary. Toilet Transfers # of Assistants: 1 Transfer Surface: Toilet Transfer Approach: To and from, Ambulating Transfer Equipment: Grab bars Level of Assistance: Modified independent Assessment/Delivery: Assessed Balance Static Sitting-Balance: Good (Maintains balance without support) Dynamic Sitting-Balance: Good (Maintains balance without support) Static Standing-Balance: Fair (Maintains balance with handheld/contact guard assistance) Dynamic Standing-Balance: Fair (Maintains balance with handheld/contact guard assistance) Balance Comments: Fairly stable with single-point cane. Gait Assessment/Training Distance (m): 40 m Surface: Even, Smooth/hard Device: Gait belt, Single point cane # of Assistants: 1 Level of Assistance: Contact guard assistance Quality/Pattern: Decreased toe off, Decreased heel strike, Decreased base of support, Guarding, Decreased arm swing Stability: Fairly stable with single-point cane. Assessment of Gait: Patient demonstrates decreased gait speed, decreased stride length, narrow base of support with guarding throughout. Cueing Provided: Verbal, Tactile Training/Intervention: Verbal and tactile cues for increased stride length and base of support as well as safety throughout. Response: No adverse events noted, no loss of balance, vitals within normal limits throughout. Seated Exercises Seated Exercise - Side Addressed: Bilateral Sitting Surface: Chair Seated Exercise: Ankle pumps Exercise Mode: Active motion against gravity Sets/Repetitions: x5 The patient/family educated on safe transfer techniques with functional mobility/activity. Patient's nurse was contacted and patient's status was discussed, Discussed patient's care with OT Inpatient AVS Complete - PT: Yes Inpatient AVS Completion Date - PT: 06/16/22 Patient was left in bedside chair at end of session with call light in reach, all needs met and questions answered. Contact monitoring: PPE used during therapy: Therapist was wearing the following PPE throughout entire session: surgicalmask, eye protection, and gloves Outcome Measures -[facility] Inpatient Short Form: -[facility] Basic Mobility (V.2) How much help [...] None 5. To walk in hospital room?: A Little 6. Climbing 3-5 steps with a railing?: A Lot AM-[facility] Basic Mobility (V.2) Raw Score: 20 AM-[facility] Basic Mobility (V.2) Standardized Score: 43.99 Interpretation: Clinicians answer the -[facility] Inpatient Short Form based on observed patient activityand/or clinical judgement (ie. patient can be scored without physically performing each activity) Based on scoring guidelines using the raw score value: Those going to home had an average score at or above 18 Those going to facility had an average score at or below 17 Assessment Discharge Therapy Needs - PT: Ongoing skilled physical therapy (Patient agreeable to home health PT.) Skilled therapy can include physical therapy provided by home health, outpatient clinic, or a post-acute facility. The location of these services is determined by the patient's care team in partnershipwith patient/family. Level of Care Needed - PT: Physical assistance needed, Assistance with walking and moving around thehome Equipment Recommended - PT: Single-point cane (Patient owns) Barriers to Discharge Home: Fall risk, Safety concerns, Limited caregiver availability Clinical Impression of today's session: Patient presents to PT today with mild deficits in mobility, transfers, ambulation, balance and safety. Patient pleasant and agreeable to PT evaluation with complaints of pain in her shoulder, back andknees. Prior to arrival patient was living alone in apartment with level entry, independent with ADLs but does have a [employer] P[employer] 3 times per week to assist with homemaking activities as well as an RN every other week, not working or driving, has not been ambulating with an assistive device since her shouldersurgery, friends and family all live within the same apartment complex. Today patient did not require physical assist for any mobility or transfers and was able to ambulate 40 m utilizing single-point c ane for assist. Patient will continue to benefit from skilled PT in acute care setting as well as ongoing skilled therapy as she is currently below her functional baseline, declining assisted facility but agreeable to home health PT at this time. Rehab potential: Ms. Mosquera has Good potential to achieve established physical therapy goals withinthe time frame outlined below. Tiered PT Evaluation Codes: Comorbid Conditions: Cerebrovascular accident, Diabetes, Cardiopulmonary disease Personal Factors: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 Patient's presentation is multifactorial and likely all due to chronic conditions (ataxia, headaches, blurry vision, dizziness). She is not endorsing any new or worsening symptoms aside from an increase in the frequency of falls. 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 Combining that with polypharmacy, patient likely has very poor mobility and balance. Notable home meds include Wellbutrin, fluoxetine, lamotrigine, pregabalin, zonisamide, oxycodone, and tramadol. Notably, her pregabalin as 600 mg b.i.d., a typical max dose is 450 mg daily. Unable to find indications for several medicines this patient is taking. The patient has no history of seizures,and it appears she is possibly on Lamictal for mood stabilization. Also have not found an indicationfor Zonegran. Maybe possibly using off-label for falls, however unclear. Previous notes say indication may be due to antipsychotic induced weight gain. Patient would benefit from outpatient pharmacy and medication review. She did not wish for major changes to her medication however would recommend decreasing centrally acting medications. Patient was discharged in stable condition on 06/17/22. 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) Non-[facility] Outpatient Referral Routine Weakness Gen eral Ordered: Health referral Pain Back 06/17/2022 Ataxia Repeated Falls Debility Primary 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 BASIC METABOLIC Routine 06/18/2022 7:50 Results f or PANEL, S/P AM CDT this procedure are in the results section. MR LUMBAR SPINE RAD - Semiurgent 06/17/2022 4:49 Resul ts for WITHOUT IV CONTRAST (Fast; most ED PM CDT this p rocedure patients; some are in the inpatients) results section. MR THORACIC SPINE RAD - Semiurgent 06/17/2022 4:49 Res ults for WITHOUT IV CONTRAST (Fast; most ED PM CDT this p rocedure patients; some are in the inpatients) results section. MR BRAIN WITHOUT IV RAD - Semiurgent 06/17/2022 4:49 R esults for CONTRAST (Fast; most ED PM CDT this procedur e patients; some are in the inpatients) results section. CBC WITHOUT Routine 06/17/2022 8:00 [...] procedu re are in the results section. HEMOGLOBIN A1C, B Routine 06/16/2022 7:31 Results for AM CDT this procedure are in the results section. VITAMIN B12 ASSAY, S Routine 06/16/2022 7:31 Resu lts for AM CDT this procedure are in the results section. COMPREHENSIVE Routine [...] section. documented in this encounter Results (ABNORMAL) CBC without Differential (06/18/2022 7:50 AM CDT) [facility] Method Time Signature Hemoglobin 11.2 (L) 11.6 [...] Address City/State/ZIP Code Phon e Number [facility] - [address] [place], [place] [address] [facility] [place] [place] [address] [facility] [address] Basic Metabolic Panel (06/18/2022 7:50 AM CDT) athologist Signature Potassium, S 4.2 3.6 - [...] 06/18/2022 DTL Black/ mL/min/BSA 8:56 AM CDT Sudanese Comment: ----ADDITIONAL INFORMATION---- Estimated GFR calculated using [...] Address City/State/ZIP Code Phon e Number [facility] - [address] [place], [place] [address] [facility] [place] [address] [facility] [address] [facility] MR Thoracic Spine without IV Contrast (06/17/2022 [...] 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 The [place] intraocular lenses are absent . 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 The [place] intraocular lenses are absent . Mild mucosal [...] Scooter Tony APRN, C.N.P. 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 The [place] intraocular lenses are absent . 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 The [place] intraocular lenses are absent . Mild mucosal [...] Scooter Tony APRN, C.N.P. 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 The [place] intraocular lenses are absent . 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 The [place] intraocular lenses are absent . Mild mucosal [...] Scooter Tony APRN, C.N.P. IMG MRI PROCEDURES (ABNORMAL) CBC without Differential (06/17/2022 8:00 AM CDT) [employer] gist Method Time Signature Hemoglobin 10.5 (L) 11.6 - 06/17/2022 DTL 15.0 g/dL 8:59 AM CDT Hematocrit 33.9 (L) 35.5 - 06/17/2022 DTL 44.9 % 8:59 AM CDT Erythrocytes 4.02 3.92 - 06/17/2022 DTL 5.13 8:59 AM CDT x10(12)/L MCV 84.3 78.2 - 06/17/2022 DTL 97.9 fL 8:59 AM CDT RBC Distrib An accurate 12.2 - 06/17/2022 DTL Width RDW can not 16.1 % 8:59 AM CDT be determined. Platelet Count 280 157 - 371 06/17/2022 DTL x10(9)/L 8:59 AM CDT Leukocytes 3.3 (L) 3.4 - 9.6 06/17/2022 DTL x10(9)/L 8:59 AM CDT Specimen Anatomical Collection Method Collection Time Receive d Time (Source) Location / / Volume Laterality Blood (Blood, 06/17/2022 8:00 AM 06/17/20 8:48 Venous) CDT AM CDT Maira Haynes M.D. LAB BLOOD ADD-ON Performing Organization Address City/State/ZIP Code Phon e Number [facility] - [address] [place], [place] [address] [facility] [place] [address] [facility] 200 [facility] Basic Metabolic Panel (06/17/2022 8:00 AM CDT) P athologist Signature Potassium, S 4.1 3.6 - 5.2 06/17/2022 DTL mmol/L 9:34 AM CDT Sodium, S 140 135 - 145 06/17/2022 DTL mmol/L 9:34 AM CDT Chloride, S 104 98 - 107 06/17/2022 DTL mmol/L 9:34 AM CDT Bicarbonate, S 25 22 - 29 06/17/2022 DTL mmol/L 9:34 AM CDT Anion Gap 11 7 - 15 06/17/2022 DTL 9:34 AM CDT BUN (Blood Urea 16 6 - 21 06/17/2022 DTL Nitrogen), S mg/dL 9:34 AM CDT Creatinine 0.78 0.59 - 06/17/2022 DTL 1.04 mg/dL 9:34 AM CDT eGFR-Non 83 >=60 06/17/2022 DTL Black/ mL/min/BSA 9:34 AM CDT Sudanese Comment: ----ADDITIONAL INFORMATION---- Estimated GFR calculated using the 2009 CKD_EPI creatinine equation. eGFR-Black/ >90 >=60 mL/min/BSA 2021 9:34 AM CDT DTL Comment: ----ADDITIONAL INFORMATION---- Estimated GFR calculated using the 2009 CKD_EPI creatinine equation. Calcium, Total, S 9.1 8.6 - 10.0 mg/dL 06/17/2022 9:34 AM CDT DTL Glucose, S 97 70 - 140 mg/dL 06/17/2022 9:34 AM CDT D TL Specimen Anatomical Collection Method Collection Time Receive d Time (Source) Location / / Volume Laterality Blood (Blood, 06/17/2022 8:00 AM 06/17/20 22 9:10 Venous) CDT AM CDT Maira Haynes M.D. LAB BLOOD ADD-ON Performing Organization Address City/[facility]/ZIP Code Phon e Number [facility] - [address] [place], [place] [address] [place] [id number] [place] [address] (ABNORMAL) Dipstick, Urine (06/16/2022 9:32 AM CDT) [facility] g[facility] Method Time Signature Hemoglobin, Large (A) [...] M.D. LAB URINE ORDERABLES Performing Organization Address City/[facility]/ZIP Code Phon e Number [facility] [id number] [place] [address] Osmolality, Urine (06/16/2022 9:32 AM CDT) P athologist Signature Osmolality, U 745 150 - 1150 06/16/2022 DTL mOsm/kg 11:17 AM CDT Specimen Anatomical Collection Method Collection Time Receive d Time (Source) Location / / Volume Laterality Urine 06/16/2022 9:32 AM 2 CDT 10:39 AM CDT Maira Haynes M.D. LAB URINE ORDERABLES Performing Organization Address City/[facility]/ZIP [facility] Phon e Number [facility] - [address] [place] [address] [place] [address] [facility] 200 [facility] pH, Random, Urine (06/16/2022 9:32 AM CDT) P athologist Signature pH, Random, U 5.0 4.5 - 8.0 06/16/2022 DTL 11:17 AM CDT Specimen Anatomical Collection Method Collection Time Receive d Time (Source) Location / / Volume Laterality Urine 06/16/2022 9:32 AM 2 CDT 10:39 AM CDT Maira Haynes M.D. LAB URINE ORDERABLES Performing Organization Address City/[facility] Code Phon e Number [facility] - [address] (ABNORMAL) Microscopic Manual (06/16/2022 9:32 AM [...] M.D. LAB URINE ORDERABLES Performing Organization Address City/[facility]/ZIP Code Phon e Number [facility] - [address] [place], [place] [address] [facility] [address] (ABNORMAL) Urinalysis with Microscopic: Urine, Catheter (06/16/2022 9:32 AM CDT) Patholo gist Method Time Signature Source Urine, 06/16/2022 [...] Laterality Urine (Urine, 06/16/2022 9:32 AM 06/16/20 Catheter) CDT 10:38 AM CDT Maira Haynes M.D. LAB URINE ORDERABLES Performing Organization Address City/State/[facility] Code Phon e Number [facility] - [address] [place], [place] [address] [facility] [place] [address] [facility] 200 [facility] Vitamin B12 Assay (06/16/2022 7:31 AM CDT) P athologist Signature Vitamin B12 201 180 - 914 06/16/2022 DTL Assay, S ng/L 9:16 AM CDT Comment: [...] M.D. LAB BLOOD ADD-ON Performing Organization Address City/[facility] Phon e Number [facility] - [address] [place] [address] Hemoglobin A1c (06/16/2022 7:31 AM CDT) P athologist Signature Hemoglobin A1c, 4.9 4.0 - 5.6 06/16/2022 DTL B % 8:13 AM CDT Specimen Anatomical Collection Method Collection Time Receive d Time (Source) Location / / Volume Laterality Blood (Blood, 06/16/2022 7:31 AM 06/16/20 7:51 Venous) CDT AM CDT Kiran Melton M.D. LAB BLOOD ADD-ON Performing Organization Address [facility] Phon e Number [facility] - [address] (ABNORMAL) CBC without Differential (06/16/2022 7:31 AM CDT) Patholo gist Method Time Signature Hemoglobin 10.3 (L) 11.6 - 06/16/2022 DTL 15.0 g/dL 8:05 AM CDT Hematocrit 33.0 (L) 35.5 - 06/16/2022 DTL 44.9 % 8:05 AM CDT Erythrocytes 3.90 (L) 3.92 - 06/16/2022 DTL 5.13 8:05 AM CDT x10(12)/L MCV 84.6 78.2 - 06/16/2022 DTL 97.9 fL 8:05 AM CDT RBC Distrib An accurate 12.2 - 06/16/2022 DTL Width RDW can not 16.1 % 8:05 AM CDT be determined. Platelet Count 230 157 - 371 06/16/2022 DTL x10(9)/L 8:05 AM CDT Leukocytes 4.8 3.4 - 9.6 06/16/2022 DTL x10(9)/L 8:05 AM CDT Specimen Anatomical Collection Method Collection Time Receive d Time (Source) Location / / Volume Laterality Blood (Blood, 06/16/2022 7:31 AM 06/16/20 7:51 Venous) CDT AM CDT Kiran Melton M.D. LAB BLOOD ADD-ON Performing Organization Address City/State/ZIP Code Phon e Number [facility] - [address] [place], [place] [address] [facility] [place] [address] [facility] [address] (ABNORMAL) Comprehensive Metabolic Panel (06/16/2022 7:31 AM CDT) P athologist Signature Potassium, S [...] 06/16/2022 DTL Black/ mL/min/BSA 8:22 AM CDT [place]ese Comment: ----ADDITIONAL INFORMATION---- Estimated GFR calculated using [...] Address City/State/ZIP Code Phon e Number [facility] - [address] [place] [address] [facility] [place] [address] [facility] 200 [facility] Critical Care (06/15/2022 8:47 PM CDT) Narrative [...] life-threatening deterioration of the fo llowing conditions: PBX MECHANIC failure or compromise Critical care was time spent personally by me on the following activities: ordering and review of radiographic stud ies, ordering and review of laboratory studies, discussions with [facility] provider, discussions with consultants, examination of patient, rev iew of old charts and re-evaluation of patient's condition Scooter Tony APRN, C.N.P. PROCEDURE/MINOR SURGICA L ORDERABLES SARS Coronavirus 2, PCR Rapid, V Symptomatic (06/15/2022 7:51 PM CDT) [facility] Method Time Signature SARS CoV-2, Undetected Undetected 06/15/2022 [facility] PCR, Rapid, V 8:23 PM CDT Comment: ----ADDITIONAL INFORMATION---- This RT-PCR test was performed using the Tita SARS-CoV-2 and Influenza A/B Reagent assay from [employer], which has received Emergency Use Authori zation(EUA) by the U.S. Food and Drug Administration . Fact sheets for this Emergency Use Autho rization (EUA) assay can be found at the following link s: For Healthcare Providers: https://www.fda.gov/media/335122/downloa d For Patients: https://www.fda.gov/media/087223/downloa d SARS Coronavirus 2, Source, Rapid Swab, Nasopharynx 06/15/2022 7:58 PM CDT STMA Specimen Anatomical Collection Method Collection Time Receive d Time (Source) Location / / Volume Laterality Varies 06/15/2022 7:51 PM 7:58 (Nasopharynx) CDT PM CDT Scooter Tony APRN, Ricky.N.P. LAB MICROBIOLOGY - GENE RAL ORDERABLES Performing Organization Address City/State/ZIP Code Phon e Number [facility] - [address] [place] [address] [address] [place] [address] [facility] [address] [facility] CT Head Neck Angiogram with IV Contrast [...] 2H/6H, 5th Gen (06/15/2022 2:48 PM CDT) [facility] Method Time Signature Troponin T, 2 <6 <=10 ng/L 06/15/2022 [facility] hr, 5th gen 3:54 PM CDT 2H Delta 0 ng/L 06/15/2022 [facility] 3:54 PM CDT 2H Delta Not Changing 06/15/2022 [facility] Interp 3:54 PM CDT Troponin T, 6 CANCELED ng/L 06/15/2022 [facility] hr, 5th gen 3:54 PM CDT Comment: Result canceled by the ancillar y. Specimen Anatomical Collection Method Collection Time Receive d Time (Source) Location / / Volume Laterality Blood (Blood, 06/15/2022 2:48 PM 06/15/20 3:21 Venous) CDT PM CDT Narrative [facility] - [facility] - 06/15/2022 3:54 PM CDT Specimen Information: Specimen ID: [id number] Specimen Type: Blood Specimen Collection Start Date: 06/15/20 ??2:48 PM Specimen Received Date: 06/15/2022 ??3:2 1 PM Specimen ID: [id number] Specimen Type: Blood Specimen Collection Start Date: 06/15/20 ??3:53 PM Specimen Received Date: 06/15/2022 ??3:5 3 PM Demarcus Ernst M.D. LAB BLOOD TROPONIN Performing Organization Address City/State/ZIP Code Phon e Number [facility] - [address] [place] [address] [address] [place] [address] [facility] 200 [facility] DX Hip And Pelvis Left 2-3 [...] eft hip chondrocalcinosis. No fracture. Scooter Tony APRN CBrittonNBrittonPBritton IMG DIAGNOSTIC IMAGING PROCEDURES ECG 12 Lead (06/15/2022 1:35 PM CDT) athologist Signature Ventricular Rate 58 BPM MUSE ECG/Min IA Interval 154 ms MUSE QRSD Interval 102 ms MUSE QT Interval 442 ms MUSE QTC Interval 433 ms MUSE P [place] 48 degrees MUSE R [place] -1 degrees MUSE T Wave [place] 38 degrees MUSE Specimen Anatomical Collection Method [...] Signature Troponin T, <6 <=10 ng/L 06/15/2022 [facility] Baseline, 5th 1:37 PM CDT gen Specimen Anatomical Collection Method Collection Time Receive d Time (Source) Location / / Volume Laterality Blood (Blood, 06/15/2022 12:37 06/15/2022 1:03 Venous) PM CDT PM CDT Demarcus Ernst M.D. LAB BLOOD TROPONIN Performing Organization Address City/[facility] Phon e Number [facility] - [address] [place] [address] [facility] STMA [address] (ABNORMAL) Hepatic Function Panel (06/15/2022 12:37 [...] M.D. LAB BLOOD ADD-ON Performing Organization Address City/[facility] Phon e Number [facility] - [address] [place] [address] [address] [facility] [place], [place] [phone] [place] [address] [address] [facility] Basic Metabolic Panel (06/15/2022 12:36 PM CDT) P athologist Signature Potassium, P 5.0 3.6 [...] [facility]MA Nitrogen), P mg/dL 1:34 PM CDT Creatinine 0.72 0.59 - 06/15/2022 STMA 1.04 mg/dL 1:34 PM CDT eGFR-Black/Afric >90 >=60 06/15/2022 STMA an Sudanese mL/min/BSA 1:34 PM CDT Comment: ----ADDITIONAL INFORMATION---- [...] Organization Address City/State/ZIP Code Phon e Number [facility] - [facility] [address] [place], [place] [address] [facility] [place] [address] [facility] [address] (ABNORMAL) CBC with Differential, Blood (06/15/2022 12:36 PM CDT) [facility] Method Time Signature Hemoglobin 10.4 [...] Address City/State/ZIP Code Phon e Number [facility] - [address] [place], [place] [address] [place] [address] [address] [facility] 200 [facility] Prothrombin Time (PT) (06/15/2022 12:34 PM CDT) P athologist Signature Prothrombin 10.2 9.4 - 12.5 06/15/2022 [facility] Time, P sec 1:10 PM CDT INR 0.9 0.9 - 1.1 06/15/2022 [facility] 1:10 PM CDT Comment: ----ADDITIONAL INFORMATION---- [...] Address City/State/ZIP Code Phon e Number [facility] - [address] [place], [place] [address] [place] [address] Interpretation of Outside CT Spine (06/15/2022 [...] in the right vertebral artery. Procedure Note Aflredo Kwong M.D., Ph.D. - 2021 EXAM: INTERPRETATION [...] Modality Head, Neuroradiology RST LOS, Neuroradiology ARZ [facility], N/A Computed Tomography Neuroradiology FLA [facility], Other Specimen (Source) Anatomical Collection Method Collection [...] documented in this encounter Visit Diagnoses Diagnosis Weakness General - Primary Incontinence Urinary Pain Back Ataxia Repeated Falls Debility Primary Osteoarthritis Shoulder Left Ataxia From Stroke Cerebrovascular Accid ent Stroke Cerebrovascular Accident Personal History Fusion Cervical Spine Status Post Fibromyalgia Chronic Pain Syndrome Cerebral Infarction Due To Embolism Righ t Vertebral Artery (HCC) Decline Functional Status [R53.81 (ICD-1 0-CM)] documented in this encounter Admitting Diagnoses Diagnosis Weakness General documented in this encounter Administered Medications Inactive Administered Medications - up to 3 most recent administrations Medication Order MAR Action Action Date Dose Rate Site acetaminophen tablet 1,000 mg Given 06/18/2022 10:19 AM CDT 1,00 0 mg (TYLENOL) 1,000 mg, oral, 4 times daily, First dose on Tue06/16/22 at 0800, Not to exceed 4 grams of acetaminophen in 24 hours all sources Given 06/17/2022 8:58 PM CDT 1,000 mg Given 06/17/2022 9:20 AM CDT 1,000 mg vudkrufukospx-orvvmxag-zaeganuii in Lipoderm Given 06/18/2022 10 :23 AM CDT 1 g 2%-0.5%-2% cream 1 g 1 g, topical, 2 times daily, First dose on Tue06/16/22 at 0915 Given 06/17/2022 9:01 PM CDT 1 g Given 06/17/2022 9:20 AM CDT 1 g aspirin tablet 325 mg Given 06/17/2022 6:03 PM CDT 325 mg 325 mg, oral, Every evening, First dose on Tue06/16/22 at 1800 Given 06/16/2022 6:03 PM CDT 325 mg atorvastatin tablet 80 mg (LIPITOR) Given 06/17/2022 8:59 PM CDT 80 mg 80 mg, oral, Daily at bedtime, First dose on Tue06/16/22 at 2100 Given 06/16/2022 9:08 PM CDT 80 mg benzonatate capsule 100 mg (TESSALON PER LES) Given 06/18/2022 5:15 AM CDT 100 mg 100 mg, oral, 3 times daily PRN, cough, Starting on Tue06/16/22 at 0107, Swallow whole. Do NOT crush, chew or open capsule. Given 06/17/2022 10:04 PM CDT 100 mg Given 06/17/2022 9:20 AM CDT 100 mg buPROPion XL 24 hr tablet 150 mg (WELLBUTRIN Given 10:19 AM CDT 150 mg XL) 150 mg, oral, Every morning, First dose on Tue06/16/22 at 0900, Swallow whole. Do NOT crush, chew, or split tablet. Given 06/17/2022 9:20 AM CDT 150 mg Given 06/16/2022 9:16 AM CDT 150 mg jugmjuoamp-thgkdiwfkhyou-gnom 50-325-40 mg Given 06/17 6:03 PM CDT 1 tablet per tablet 1 tablet (ESGIC) 1 tablet, oral, Every 6 hours PRN, migraine, Starting on Tue06/16/22 at 0107 Given 06/17/2022 10:38 AM CDT 1 tablet Given 06/16/2022 9:08 PM CDT 1 tablet cholecalciferol (vitamin D3) tablet 25 m cg Given 06/16/2022 9:16 AM CDT 25 mcg 25 mcg, oral, Daily, First dose on Tue06/16/22 at 0900, cholecalciferol (vitamin D3) orderable was interchanged for cholecalciferol (vitamin D3) tablet/capsule clindamycin 1 % external solution 1 Given 06/17/2022 9:01 PM CDT 1 application application (CLEOCIN T) 1 application, topical, 2 times daily, First dose on Tue06/16/22 at 0900 Given 06/17/2022 9:21 AM CDT 1 application Given 06/16/2022 9:10 PM CDT 1 application cyanocobalamin tablet 500 mcg (VITAMIN B 12) Given 06/18/2022 10:20 AM CDT 500 mcg 500 mcg, oral, Daily, First dose on Tue06/16/22 at 0900 Given 06/17/2022 9:19 AM CDT 500 mcg Given 06/16/2022 9:21 AM CDT 500 mcg diclofenac sodium 1 % gel 2 g (VOLTAREN) Given 06/17/2022 9:00 PM CDT 2 g 2 g, topical, 4 times daily, First dose (after last modification) on Tue06/16/22 at 1200, Do not exceed 32 g per day, over all affected joints. Use dosing card to measure product. 2 g = 2.25 inches, 4 gm = 4.5 inches. Rinse dosing card after use and save for each administration. Given 06/17/2022 9:25 AM CDT 2 g Given 06/16/2022 9:10 PM CDT 2 g diphenhydrAMINE injection 25 mg (BENADRY L) Given 06/15/2022 6:57 PM CDT 25 mg 25 mg, intravenous, Once, On Tue06/15/22 at 1855, For 1 dose diphenhydrAMINE-zinc acetate 1 % cream Given 2:31 PM CDT 1 application 1 application (BENADRYL) 1 application, topical, 4 times daily PRN, itching, Starting on Tue06/16/22 at 0306 enoxaparin injection 40 mg Given 06/17/2022 9:20 AM CDT 40 mg Left Lower Abdomen (LOVENOX) 40 mg, subcutaneous, Every 24 hours scheduled, First dose on Tue06/16/22 at 0900 Given 06/16/2022 9:17 AM CDT 40 mg Left Lower Abdomen fentaNYL injection 50 mcg (SUBLIMAZE) Given 06/15/2022 2:31 PM CDT 50 mcg 50 mcg, intravenous, Once, On Tue06/15/22 at 1358, For 1 dose FLUoxetine capsule 80 mg (PROzac) Given 06/18/2022 10:23 AM CDT 80 mg 80 mg, oral, Daily, First dose (after last modification) on Tue06/17/22 at 0900, FLUoxetine orderable was interchanged for FLUoxetine tablet/capsule Given 06/17/2022 9:20 AM CDT 80 mg FLUoxetine tablet 10 mg (PROzac) Given 06/16/2022 9:16 AM CDT 10 mg 10 mg, oral, Daily, First dose on Tue06/16/22 at 0900, FLUoxetine orderable was interchanged for FLUoxetine tablet/capsule fluticasone furoate 100 mcg/actuation Given 06/18/2022 10:24 AM CDT 1 puff inhaler 1 puff (ARNUITY ELLIPTA) 1 puff, inhalation, Daily, First dose on Tue06/16/22 at 0900, Rinse mouth with water after use to reduce aftertaste and incidence of candidiasis. Do not swallow. Given 06/17/2022 9:21 AM CDT 1 puff Given 06/16/2022 9:21 AM CDT 1 puff furosemide tablet 40 mg (LASIX) Given 06/17/2022 9:20 AM CDT 40 mg 40 mg, oral, Daily, First dose on Tue06/16/22 at 0900 Given 06/16/2022 9:16 AM CDT 40 mg HYDROmorphone injection 0.5 mg (DILAUDID ) Given 06/15/2022 9:28 PM CDT 0.5 mg 0.5 mg, intravenous, Every 30 min PRN, severe pain or score 7-10 of 10, Starting on Tue06/15/22 at 1654, For 3 doses Given 06/15/2022 6:51 PM CDT 0.5 mg Given 06/15/2022 4:59 PM CDT 0.5 mg HYDROmorphone injection 1 mg (DILAUDID) Given 06/15/2022 4:01 PM CDT 1 mg 1 mg, intravenous, Once, On Tue06/15/22 at 1531, For 1 dose HYDROmorphone tablet 2 mg (DILAUDID) Given 06/16/2022 2:57 AM CDT 2 mg 2 mg, oral, Once, On Tue06/16/22 at 0230, For 1 dose iohexoL 350 mg iodine/mL solution 1-200 mL Given 06/15/2022 4:39 PM CDT 100 mL (OMNIPAQUE) 1-200 mL, intravenous, Once in imaging, contrast, Starting on Tue06/15/22 at 1638, For 1 dose, Imaging Protocol Orders, Dose per Radiant Medication Guidelines lamoTRIgine tablet 200 mg (LaMICtaL) Given 06/18/2022 10:19 AM CDT 200 mg 200 mg, oral, 2 times daily, First dose on Tue06/16/22 at 0900 Given 06/17/2022 8:58 PM CDT 200 mg Given 06/17/2022 9:19 AM CDT 200 mg magnesium oxide tablet 200 mg (MAG-OX) Given 06/16/2022 5:44 AM CDT 200 mg 200 mg, oral, Daily before breakfast, First dose on Tue06/16/22 at 0700, magnesium oxide 200 mg daily was interchanged for magnesium gluconate 250 mg daily magnesium oxide tablet 200 mg (MAG-OX) Given 06/17/2022 9:01 PM CDT 200 mg 200 mg, oral, Every 24 hours, First dose (after last modification) on Tue06/16/22 at 2000, magnesium oxide 200 mg daily was interchanged for magnesium gluconate 250 mg daily Given 06/16/2022 9:07 PM CDT 200 mg meclizine tablet 25 mg (ANTIVERT) Given 06/18/2022 5:15 AM CDT 25 mg 25 mg, oral, Every 6 hours PRN, dizziness, Starting on Tue06/16/22 at 0111 Given 06/17/2022 10:04 PM CDT 25 mg Given 06/17/2022 9:20 AM CDT 25 mg melatonin tablet 1 mg 1 mg, oral, Bedtime PRN, sleep, Starting on Tue 2 at 1336 ondansetron ODT disintegrating tablet 8 mg Given 06/16/2022 11:4 0 PM CDT 8 mg (ZOFRAN-ODT) 8 mg, oral, 3 times daily PRN, nausea, Starting on Tue06/16/22 at 0112, When splitting ODT at bedside, handle with gloves and a pill splitter to prevent moisture contact. oxyCODONE IR tablet 10 mg (ROXICODONE) Given 06/18/2022 10:24 AM CDT 10 mg 10 mg, oral, Every 4 hours PRN, moderate pain or score 4-6 of 10, severe pain or score 7-10 of 10, Starting on Tue06/16/22 at 0112 Given 06/18/2022 5:15 AM CDT 10 mg Given 06/17/2022 10:04 PM CDT [address] tablet 40 mg (PROTONIX) Given 06/18/2022 7:16 AM CDT 40 mg 40 mg, oral, Daily before breakfast, First dose on Tue06/16/22 at 0700, pantoprazole 40 mg oral daily was interchanged for esomeprazole 20 or 40 mg oral daily Swallow whole. Do NOT crush, chew, or split tablet. Given 06/16/2022 5:44 AM CDT 40 mg pregabalin capsule 300 mg (LYRICA) Given 06/18/2022 10:19 AM CDT 300 mg 300 mg, oral, 2 times daily, First dose on Tue06/16/22 at 0900 Given 06/17/2022 8:58 PM CDT 300 mg Given 06/17/2022 9:19 AM CDT 300 mg rOPINIRole tablet 2 mg (REQUIP) Given 06/17/2022 8:59 PM CDT 2 mg 2 mg, oral, Daily at bedtime, First dose on Tue06/16/22 at 2100 Given 06/16/2022 9:09 PM CDT 2 mg sennosides-docusate sodium 8.6-50 mg per Given 06/16/2022 9:16 A M CDT 1 tablet tablet 1 tablet (SENOKOT-S) 1 tablet, oral, 2 times daily, First dose on Tue06/16/22 at 0900 sodium chloride (PF) 0.9 % injection 1-1 00 mL Given 06/15/2022 4:39 PM CDT 35 mL 1-100 mL, intravenous, Once, On Tue06/15/22 at 1639, For 1 dose, Imaging Protocol Orders sodium chloride 0.9 % injection 3 mL Given 06/17/2022 8:59 PM CDT 3 mL 3 mL, intravenous, Every 12 hours scheduled, First dose on Tue06/16/22 at 0900, Peripheral Intravenous Catheter and Rapid Infusion Catheter, when no infusion to maintain patency Given 06/17/2022 9:24 AM CDT 3 mL Given 06/16/2022 10:51 PM CDT 3 mL traMADoL tablet 50 mg (ULTRAM) Given 06/16/2022 2:57 AM CDT 50 mg 50 mg, oral, Every 6 hours PRN, severe pain or score 7-10 of 10, Starting on Tue06/16/22 at 0114, Indications: Acute Pain, Acute Pain Exception valACYclovir tablet 500 mg (VALTREX) Given 06/18/2022 10:24 AM CDT 500 mg 500 mg, oral, Daily, First dose on Tue06/16/22 at 0900, Drug Monitoring Program: Pharmacist to adjust medication dosing based on indication and drug clearance factors., Indications: Chickenpox/herpes zoster Given 06/17/2022 9:20 AM CDT 500 mg Given 06/16/2022 9:20 AM CDT 500 mg zonisamide capsule 300 mg (ZONEGRAN) Given 06/18/2022 10:19 AM CDT 300 mg 300 mg, oral, 2 times daily, First dose on Tue06/16/22 at 0900, Swallow whole. Do NOT crush, chew or open capsule. Given 06/17/2022 8:58 PM CDT 300 mg Given 06/17/2022 9:20 AM CDT 300 mg documented in this encounter Active and Recently Administered Medications Times are shown in CDT. Scheduled Medication Order 06/16/2022 06/17/2022 06/18/2022 acetaminophen tablet 1,000 mg (TYLENOL) 0916 (Given - Provider: Gini Newberry R.N.)1345 (Given - Provider: iGni Newberry R.N.)1803 (Given - Provider: Gini Newberry R.N.)2106 (Given - Provider: Rufina Husain R.N.) 0920 (Given - Provider: Gini Newberry R.N.)1153 (Not Given - Provider: Gini Newberry R.N. - Reason: Patient not available)1602 (Not Given - Provider: Gini Newberry R.N. - Reason: Patient not available) 1019 (Given - Provider: Raquel Guajardo RBrittonNBritton) 1,000 mg, oral, 4 times daily, First dos e on Tue06/16/22 at 0800, Not to exceed 4 grams of acetaminophen in 24 hours all sources 2057 (Given - Provider: Erwin Tello RBrittonNBritton) hyuememrcjnda-zmomwsod-hxzveextg in Lipoderm 2%-0.5%-2 % cream 1 g 1344 (Given - Provider: Gini Newberry R.N.)2110 (Given - Provider: Rufina Husain R.N.) 0920 (Given - Provider: Gini Newberry R.N.)2101 (Given - Provider: Erwin Tello R.N.) 1023 (Given - Provider: Raquel Guajardo R.N.) 1 g, topical, 2 times daily, First dose on Tue06/16/22 at 0915 aprepitant capsule 40 mg (EMEND) 1315 (N ot Given - Provider: Gini Newberry R.N. - Reason: Other - Comment: possibly given on during procedure) 40 mg, oral, Once, On Tue06/17/22 at 1315, For 1 dose, Pre-Op aspirin tablet 325 mg 1803 (Given - Provider: Gini heller R.N.) 180 (Given - Provider: Gini Newberry R.N.) 325 mg, oral, Every evening, First dose on Tue06/16/22 at 1800 atorvastatin tablet 80 mg (LIPITOR) 2107 (Given - Prov ider: Rufina Husain R.N.) 2058 (Given - Provider: Erwin Tello R.N.) 80 mg, oral, Daily at bedtime, First dose on Tue06/16/22 at 2100 buPROPion XL 24 hr tablet 150 mg (WELLBUTRIN XL) 915 (Given - Provider: Gini Newberry R.N.) 09 (Given - Provider: Gini Newberry R.N.) 1019 (G iven - Provider: Raquel Guajardo R.N.) 150 mg, oral, Every morning, First dose on Tue06/16/22 at 0900, Swallow whole. Do NOT crush, chew, or split tablet. cholecalciferol (vitamin D3) tablet 25 mcg (CANCELED) 915 (Given - Provider: Gini Newberry R.N.) 25 mcg, oral, Daily, First dose on Tue at 0900, cholecalciferol (vitamin D3) orderable was interchanged for cholecalciferol (vitamin D3) tablet/capsule clindamycin 1 % external solution 1 application (CLEOC IN T) 921 (Given - Provider: Gini Newberry R.N.)2109 (Given - Provider: Rufina Husain R.N.) 920 (Given - Provider: Gini Newberry R.N.)210 (Given - Provider: Erwin Tello R.N.) 1025 (Not Given - Provider: Raquel arguelles RBetsy - Reason: Patient/family refused) 1 application, topical, 2 times daily, First dose on Tue06/16/22 at 0900 cyanocobalamin tablet 500 mcg (VITAMIN B12) 0921 (Give n - Provider: Gini Newberry R.N.) 0919 (Given - Provider: Gini Newberry R.N.) 1020 (G iven - Provider: Raquel Guajardo R.N.) 500 mcg, oral, Daily, First dose on Tue06/16/22 at 0900 diclofenac sodium 1 % gel 2 g (VOLTAREN) 1346 (Given - Provider: Gini Newberry R.N.)1817 (Given - Provider: Gini Newberry R.N.)2110 (Given - Provider: Rufina Husain R.N.) 0925 (Given - Provider: Gini Newberry R.N.)1153 (Not Given - Provider: Gini Newberry R.N. - Reason: Patient not available)1602 (Not Given - Provider: Gini Newberry R.N. - Reason: Patient not available) 1024 (Not Given - Provider: Raquel arguelles RBetsy - Reason: Patient/family refused) 2 g, topical, 4 times daily, First dose (after last modification) on Tue06/16/22 at 1200, Do not exceed 32 g per day, over all affected joints. Use dosing card to measure product. 2 g = 2.25 inches, 4 g 2100 (Given - Provider: Erwin Tello R.N.) m = 4.5 inches. Rinse dosing card after use and save for each ad ministration. enoxaparin injection 40 mg (LOVENOX) 0917 (Given - Pro vider: Gini Newberry R.N.) 0920 (Given - Provider: Gini Newberry R.N.) 1019 (N ot Given - Provider: Raquel Guajardo R.N. - Reason: Patient/family refused) 40 mg, subcutaneous, Every 24 hours sche duled, First dose on Tue06/16/22 at 0900 FLUoxetine capsule 80 mg (PROzac) 0920 ( Given - Provider: Gini Newberry R.N.) 1023 (Given - Provider: Raquel Guajardo R.N.) 80 mg, oral, Daily, First dose (after la st modification) on Clementine 06/17/22 at 0900, FLUoxetine orderable was interchanged for FLUoxetine tablet/capsule FLUoxetine tablet 10 mg (PROzac) (CANCELED) 0916 (Give n - Provider: Gini Newberry R.N.) 10 mg, oral, Daily, First dose on Tue at 0900, FLUoxetine orderable was interchanged for FLUoxetine tablet/capsule fluticasone furoate 100 mcg/actuation inhaler 1 puff ( ARNUITY ELLIPTA) 920 (Given - Provider: Gini Newberry R.N.) 0921 (Given - Provider: Gini Newberry R.N.) 1024 (Given - Provider: Raquel Guajardo R.N.) 1 puff, inhalation, Daily, First dose on Tue06/16/22 at 0900, Rinse mouth with water after use to reduce aftertaste and incidence of candidiasis. Do not swallow. furosemide tablet 40 mg (LASIX) 0916 (Given - Provider: Sherrie Smith R.N.) 0920 (Given - Provider: Gini Newberry R.N.) 1024 (Not Given - Provider: Raquel Guajardo R.N. - Reason: Patient/family refused) 40 mg, oral, Daily, First dose on Tue06/16/22 at 0900 HYDROmorphone tablet 2 mg (DILAUDID) (COMPLETED) 0257 (Given - Provider: Tiffanie Mills R.NBritton) 2 mg, oral, Once, On Tue06/16/22 at 0230, For 1 dose lamoTRIgine tablet 200 mg (LaMICtaL) 920 (Given - Pro vider: Gini Newberry R.N.)2108 (Given - Provider: Rufina Husain R.N.) 918 (Given - Provider: Gini Newberry R.N.)2057 (Given - Provider: Erwin Tello RBetsy) 1018 (Given - Provider: Raquel Guajardo R.N.) 200 mg, oral, 2 times daily, First dose on Tue06/16/22 at 0900 magnesium oxide tablet 200 mg (MAG-OX) (CANCELED) 0544 (Given - Provider: Tiffanie Mills R.N.) 200 mg, oral, Daily before breakfast, Fi rst dose on Tue06/16/22 at 0700, magnesium oxide 200 mg daily was interchanged for magnesium gluconate 250 mg daily magnesium oxide tablet 200 mg (MAG-OX) 2106 (Given - P rovider: Rufina Husain R.N.) 2100 (Given - Provider: Erwin Tello R.N.) 200 mg, oral, Every 24 hours, First dose (after last modification) on Tue06/16/22 at 2000, magnesium oxide 200 mg daily was interchanged for magnesium gluconate [address] tablet 40 mg (PROTONIX) 0544 (Given - Provider: Tiffanie Mills R.N.) 06 (Not Given - Provider: Rufina Husain R.N. - R tameka: NPO) 0716 (Given - Provider: Erwin Tello R.N.) 40 mg, oral, Daily before breakfast, Fir st dose on Tue06/16/22 at 0700, pantoprazole 40 mg oral daily was interchanged for esomeprazole 20 or 40 mg oral daily Swallow whole. Do NOT crush, chew, or split tablet. pregabalin capsule 300 mg (LYRICA) 16 (Given - Provi marquis: Gini Newberry R.N.)2108 (Given - Provider: Rufina Husain R.N.) 918 (Given - Provider: Giin Newberry R.N.)2057 (Given - Provider: Erwin Tello R.N.) 101 (Given - Provider: Raqule Guajardo R.N.) 300 mg, oral, 2 times daily, First dose on Tue06/16/22 at 0900 rOPINIRole tablet 2 mg (REQUIP) 2108 (Given - Provider: Marilyn Husain R.N.) 2058 (Given - Provider: Erwin Tello R.N.) 2 mg, oral, Daily at bedtime, First dose on Tue06/16/22 at 2100 sennosides-docusate sodium 8.6-50 mg per tablet 1 tabl et (SENOKOT-S) 0916 (Given - Provider: Gini Newberry R.N.)2110 (Not Given - Provider: Rufina Husain R.N. - Reason: Patient/family refused) 918 (Not Given - Provider: Gini Newberry R.N. - Reason: Patient/family refused)2057 (Not Given - Provider: Erwin Tello R.N. - Reason: Patient/family refused) 102 (Not Given - Provider: Raquel Guajardo R.N. - Reason: Patient/family refused) 1 tablet, oral, 2 times daily, First dose on Tue06/16/22 at 0900 sodium chloride 0.9 % injection 3 mL 916 (Given - Pro vider: Gini Newberry R.N.)2250 (Given - Provider: Laquita Calero R.N.) 923 (Given - Provider: Gini Newberry R.N.)2058 (Given - Provider: Erwin Tello R.N.) 102 (Not Given - Provider: Raquel Guajardo R.N. - Reason: Loss of IV access) 3 mL, intravenous, Every 12 hours schedu led, First dose on Tue06/16/22 at 0900, Peripheral Intravenous Catheter and Rapid Infusion Catheter, when no infusion to maintain patency valACYclovir tablet 500 mg (VALTREX) 0920 (Given - Pro vider: Gini Newberry R.N.) 0920 (Given - Provider: Gini Newberry R.N.) 1024 (G iven - Provider: Raquel Guajardo R.N.) 500 mg, oral, Daily, First dose on Tue at 0900, Drug Monitoring Program: Pharmacist to adjust medication dosing based on indication and drug clearance factors., Indications: Chickenpox/herpes zoster zonisamide capsule 300 mg (ZONEGRAN) 0916 (Given - Pro vider: Gini Newberry R.N.)2107 (Given - Provider: Rufina Husain R.N.) 0920 (Given - Provider: Gini Newberry R.N.)205 (Given - Provider: Erwin Tello R.N.) 1019 (Given - Provider: Raquel Guajardo RBrittonNBritton) 300 mg, oral, 2 times daily, First dose on Tue06/16/22 at 0900, Swallow whole. Do NOT crush, chew or open capsule. PRN Medication Order 06/16/2022 06/17/2022 06/18/2022 albuterol nebulizer solution 2.5 mg 2.5 mg, nebulization, Every 6 hours PRN, shortness of breath, wheezing, Starting on Tue06/16/22 at 0106, Albuterol nebs were interchanged for albuterol/levalbuterol MDI (same frequency) benzonatate capsule 100 mg (KEREN PERRIN) 0921 (Giv en - Provider: Gini Newberry R.N.) 0339 (Given - Provider: Laquita rosa R.N.)0920 (Given - Provider: Gini Newberry R.N.)2204 (Given - Provider: Erwin Tello R.N.) 0515 (Given - Provider: Erwin gimenez RBrittonNBritton) 100 mg, oral, 3 times daily PRN, cough, Starting on Tue06/16/22 at 0107, Swallow whole. Do NOT crush, chew or open capsule. lduihdazby-uqdszceuiausg-jcki 50-325-40 mg per tablet 1 tablet (ESGIC) 1359 (Given - Provider: Gini Newberry R.N.)2108 (Given - Provider: Rufina Husain R.N.) 1038 (Given - Provider: Kennedi Cabrera APRN, PBX MECHANIC, M.S.N.)1803 (Given - Provider: Gini Newberry R.N.) 1 tablet, oral, Every 6 hours PRN, migraine, Starting on 05/29 at 0107 diphenhydrAMINE-zinc acetate 1 % cream 1 application ( BENADRYL) 1431 (Given - Provider: Gini Newberry R.N.) 1 application, topical, 4 times daily IA N, itching, Starting on Tue06/16/22 at 0306 meclizine tablet 25 mg (ANTIVERT) 0920 (Given - Provid er: iGni Newberry R.N.) 0920 (Given - Provider: Gini Newberry R.N.)220 (Given - Provider: Erwin Tello R.N.) 0515 (Given - Provider: Erwin gimenez RBetsy) 25 mg, oral, Every 6 hours PRN, dizziness, Starting on Tue at 0111 melatonin tablet 1 mg 1 mg, oral, Bedtime PRN, sleep, Starting on Tue06/16/22 at 1336 ondansetron ODT disintegrating tablet 8 mg (ZOFRAN-ODT ) 2207 (Not Given - Provider: Laquita Calero R.N. - Reason: Other - Comment: Wasted in Pyxis)2340 (Given - Provider: Laquita Calero R.N.) 8 mg, oral, 3 times daily PRN, nausea, S tarting on Tue06/16/22 at 0112, When splitting ODT at bedside, handle with gloves and a pill splitter to prevent moisture contact. oxyCODONE IR tablet 10 mg (ROXICODONE) 0544 (Given - P rovider: Tiffanie Mills R.N.)0959 (Given - Provider: Gini Newberry R.N.)1345 (Given - Provider: Gini Newberry R.N.)1803 (Given - Provider: Gini Newberry R.N.) 0006 (Given - Provider: Laquita Calero RBetsy)0919 (Given - Provider: Christiano Moon.German.)1803 (Given - Provider: Gini Newberry R.N.)2204 (Given - Provider: Erwin Tello RBrittonNBritton) 0515 (Given - Provider: Erwin gimenez R.NBritton)1024 (Given - Provider: Raquel Guajardo RBrittonNBritton) 10 mg, oral, Every 4 hours PRN, moderate pain or score 4-6 of 10, severe pain or score 7-10 of 10, Starting on Tue06/16/22 at 0112 polyethylene glycol powder packet 17 g (MIRALAX) 17 g, oral, As needed, constipation, Sta rting on Tue06/16/22 at 0113, 17 g = 1 heaping Tablespoon. Dissolve in 240 mLs (8 ounces) of water prior to giving. Avoid mixing with starch-based thickened liquids. scopolamine base 1 mg over 3 days 1 patch (TRANSDERM SCOP) ( COMPLETED) 1642 (Given - Provider: Sapphire Verma, MAJOR GIFTS MANAGER, MEAT PRESS OPERATOR, DNAP) 1 patch, transdermal, Administer over 72 Hours, Once as needed, nausea and vomiting, Starting on Clementine 06/17/22 at 1301, For 1 dose, Pre-Op, Contains 1.5 mg to deliver 1 mg/72 hours. sodium chloride 0.9 % injection 10 mL 10 mL, intravenous, As needed, line care , Starting on Tue06/16/22 at 0121, Peripheral Intravenous Catheter and Rapid Infusion Catheter, prior to blood sampling, post blood transfusion or post blood sampling sodium chloride 0.9 % injection 3 mL 3 mL, intravenous, As needed, line care, Starting on Tue06/16/22 at 0121, Prior to and following infusion and between multiple consecutive infusions: sodium chloride 0.9 % injection traMADoL tablet 50 mg (ULTRAM) 0257 (Given - Provider: Tiffanie Mills R.N.)0843 (Return to Cabinet - Provider: Gini Newberry R.N.)0908 (Held by provider - Provider: Maira Haynes M.D. - Comment: polypharm) 1255 (Unheld by provider - Provider: Discharge Provider, Automatic) 50 mg, oral, Every 6 hours PRN, severe p ain or score 7-10 of 10, Starting on Tue06/16/22 at 0114, Indications: Acute Pain, Acute Pain Exception documented in this encounter Additional Health Concerns Infection Onset Date Last Indicated Resolved Time COVID19 Pending 06/15/2022 06/15/2022 06/15/2022 8:24 PM CDT Assessment Noted Time PHQ-9 Depression Total Score: 16 02/11/2021 12:00 AM C DT documented as of this encounter Care Teams Combined Rail Operator Relationship Specialty Start Date End Date Elsewhere, Pcp PCP - General Family Medicine 12/25/21 documented as of this encounter
--- OUTSIDE RECORDS SUMMARY | 2022-08-01 06:39 | XMS_ITS | Encounter Summary ---
:1965 Author Organization [facility] Address [address] [place] [address] Care Team Providers Name Role Phone Elsewhere, Pcp Primary Care Provider Unavailable Encounter Details Date Type Department Care Team Description 05/18/2022 Ancillary Procedure Department of Anesthesiology, [place] Social History Tobacco Use Types Packs/Day Years [...] you attend bahai or Patient refused 2021 adventist services? Do [...] documented as of this encounter Care Teams Blood Donor Recruiter Supervisor Relationship Specialty Start Date End Date Elsewhere, Pcp PCP - General Family Medicine 12/25/21 documented as of this encounter
--- OUTSIDE RECORDS SUMMARY | 2022-08-01 06:39 | XMS_ITS | Encounter Summary ---
:1965 Author Organization [facility] Address [address] [place] [id number] Care Team Providers Name Role Phone Elsewhere, Pcp Primary Care Provider Unavailable Reason for Visit Reason Comments Scooter prescription Encounter Details Date Type Department Care Team Description 05/19/2022 Clinical Communication Department of Robert Diehl prescription Neurology in [place], [facility] [place], [place] [address] [place] [id number] [place], [place] [phone] [id number] (Work) [phone] Social History Tobacco Use Types Packs/Day Years [...] you attend uatsdin or Patient refused 2021 protestant services? Do [...] yesterday and is currently still admitted to [facility] until tomorrow. I encouraged her to reach [...] Stroke Cerebrovascular Accident Personal History Olivia Pedroza, Commercial Loan Administrator 05/19/22 11:51 AM CDT documented in this encounter Plan of Treatment Not on filedocumented as of this encounter Visit Diagnoses Not on filedocumented in this encounter Additional Health Concerns Assessment Noted Time PHQ-9 Depression Total Score: 16 02/11/2021 12:00 AM C DT documented as of this encounter Care Teams Scratcher Tender Relationship Specialty Start Date End Date Elsewhere, Pcp PCP - General Family Medicine 12/25/21 documented as of this encounter
--- OUTSIDE RECORDS SUMMARY | 2022-08-01 06:40 | XMS_ITS | Encounter Summary ---
:1965 Author Organization [facility] Address [address] [place] [address] Care Team Providers Name Role Phone Elsewhere, Pcp Primary Care Provider Unavailable Encounter Details Date Type Department Care Team Description 05/18/2022 Anesthesia Event RST SEBAS MORAN OR Kaushik Carpenter, [address] [facility] [place] [address] [address] [facility] [phone] [place] [phone] (Wo rk) Anesthesia Record Procedure Summary Procedure Name Responsible Anesthesia Start Anesthesia Stop Anesthesiologist Time Time ARTHROPLASTY Kausihk Carpenter MDanielle, 05/18/22 1214 05/18/22 1415 REPLACEMENT [...] staff during [facility] we 1. Identified the patient 2. [...] 05/18/22 1258 by Incision; Shoulder; Rishi Murillo RBrittonN. Anterior, Left Wound 02/26/22; Incision; 02/26/22 0000 by 05/18/22 12 58 by Shoulder; Anterior, Left; Rishi Murillo R.N. Rishi Murillo RBetsy 05/18/22; 1258 Peripheral IV Placement Date: 05/18/22; 05/18/22 0926 by 05/19 1500 by Ion, Placement Time: 09; Anita Ellis R.N. Ro se V. Catheter Size: 20 G; Orientation: Anterior, [...] by Placement Time: 1220 Ihsan Patel APRN, [employer]CR[employer]E [employer]ON Ihsan Townsend APRN, (created via procedure [employer]E [employer] documentation); Mask Ventilation: Easy mask; Type: Standard [...] you attend baptism or Patient refused 2021 yarsanism services? Do [...] Procedure Summary Date: 05/18/22 Room / Location: [place] [address] / [facility] in [place], [place] Anesthesia Start: 1214 Anesthesia Stop: 1415 [...] ETT location: oral VL device: glide scope [place] scope blade size: 3 Adult tube size: [...] Anesthesia & H&P Assessment Procedure Summary Date/Time: 05/18/22 1222 Procedure: ARTHROPLASTY REPLACEMENT TOTAL SHOULDER. 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 Location: [place] [address] / [facility] in [place], [place] Providers: Cyrus Polk M.D. 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 The use of blood products not discussed [...] procedure ar e in the results section. [place] US GUIDE PLC NDL Routine 05/18/2022 11:24 Resu lts for this AM CDT procedure are i n the results section. IL INJ ANES BRACHIAL Routine 05/18/2022 11:24 Res [...] ETT location: oral VL device: glide scope [place] scope blade size: 3 Adult tube size: [...] no complications Kaushik Carlos, BBritton ANESTHESIA ORDERABLES [place] INJ ANES BRACHIAL PLEX, [place] US GUIDE PLC NDL, MC ANE NERVE [...] documented as of this encounter Care Teams Assistant Infant Toddler Teacher Relationship Specialty Start Date End Date Elsewhere, Pcp PCP - General Family Medicine 12/25/21 documented as of this encounter
--- OUTSIDE RECORDS SUMMARY | 2022-08-01 06:40 | XMS_ITS | Encounter Summary ---
:1965 Author Organization [facility] Address [address] [place] [address] Care Team Providers Name Role Phone Elsewhere, Pcp Primary Care Provider Unavailable Reason for Referral Outpatient (Routine) - Closed Specialty Diagnoses / Procedures Referred By Contact Refer red To Contact Orthopedic Surgery Diagnoses Pain Shoulder Left [facility] [address] [place] [address] Referral ID Status Reason Start Date Expiration Date Visits Requ ested Visits Authorized [id number] Closed 04/22/2022 04/22/2023 1 1 Reason for Visit Reason Comments pre op orders Encounter Details Date Type Department Care Team Description 04/22/2022 Clinical Communication Department of Cyrus Polk op orders Orthopedic Surgery in [place] Souza [place], [place] [address] [place] [address] [place] [phone] Social History Tobacco Use Types Packs/Day Years [...] you attend jainism or Patient refused 2021 adventist services? Do you belong to any clubs or No 05/17/2022 organizations such as jainism groups, unions, fraMusic Mastermind or athletic groups, or school groups? How [...] DTL Nitrogen), S mg/dL 12:12 PM CDT Creatinine 0.76 0.59 - 05/17/2022 DTL 1.04 mg/dL 12:12 PM CDT eGFR-Non 86 >=60 05/17/2022 DTL Black/ mL/min/BSA 12:12 PM CDT New Zealander Comment: ----ADDITIONAL INFORMATION---- [...] Organization Address City/State/ZIP Code Phon e Number [facility] - [address] [place], [place] [address] [facility] [place] [address] [facility] [address] Type and Screen (with reflex Antibody ID) (05/17/2022 10:50 AM CDT) [facility] Method Time Signature ABORh A Neg Not 05/17/2022 ETRM applicable 7:10 PM CDT Antibody Negative Negative 05/17/2022 ETRM Screen 7:22 PM CDT Type & Screen 07/15/2022 05/17/2022 ETRM Expiration 23:59 7:10 PM CDT Testing [place] DEFAULT 05/17/2022 ETRM Location 12:24 PM CDT Specimen Anatomical Collection Method Collection Time Receive d Time (Source) Location / / Volume Laterality Blood (Blood, 05/17/2022 10:50 05/17/2022 Venous) AM CDT 12:24 PM CDT Alfredo Kamara LAB BLOOD BANK TEST ORDERABL ES Performing Organization Address City/State/ZIP Code Phon e Number [facility] - 200 [place], [place] [address] [facility] [place] [address] [facility] [address] [facility] (ABNORMAL) CBC with Differential, Blood (05/17/2022 10:50 AM CDT) [facility] [place] Method Time Signature Hemoglobin 9.2 (L) 11.6 [...] Organization Address City/State/ZIP Code Phon e Number [facility] - [address] [place], [place] [address] [facility] [place] [address] [facility] 200 [facility] SARS Coronavirus 2, Molecular Detection, PCR, Varies Asymptomatic (05/17/2022 10:26 AM CDT) [facility] Method Time Signature COVID-19, Swab, 05/17/2022 [...] ----ADDITIONAL INFORMATION---- This RT-PCR test using the [employer] SARS-Co V-2 Assay ( [employer].) performed on the [employer] Two Module System has received Emergency Use Authorization (EUA) by the U.S. Food and Drug Administration, and is modified from the regulatory compliance manager's instructions with a bridging study. Performance characteristics were verifie d by [facility] in a manner consistent with CLIA requirements. Visit the CDC website: https://www.cdc.g ov/coronavirus/ for the most recent guidelines on [facility] virus testing. Fact Sheet for Healthcare Providers: https://www.fda.gov/media/644264/downloa d Fact Sheet for Patients: https://www.fda.gov/media/898209/downloa d Specimen Anatomical Collection Method Collection Time Receive d Time (Source) Location / / Volume Laterality Varies 05/17/2022 10:26 05/17/2022 (Nasopharynx) AM CDT 10:52 AM CDT Alfredo Kamara LAB MICROBIOLOGY - GENERAL O RDERABLES Performing Organization Address City/State/ZIP Code Phon e Number [facility] - [address] [place], [place] [address] [facility] [place] [address] [facility] [address] documented in this encounter Visit Diagnoses Diagnosis Pain Shoulder Left - Primary Preoperative Exam documented in this encounter Additional Health Concerns Assessment Noted Time PHQ-9 Depression Total Score: 16 02/11/2021 12:00 AM C DT documented as of this encounter Care Teams Java Software Relationship Specialty Start Date End Date Elsewhere, Pcp PCP - General Family Medicine 12/25/21 documented as of this encounter
--- OUTSIDE RECORDS SUMMARY | 2022-08-01 06:40 | XMS_ITS | Encounter Summary ---
:1965 Author Organization [facility] Address [address] [place] [address] Care Team Providers Name Role Phone Elsewhere, Pcp Primary Care Provider Unavailable Encounter Details Date Type Department Care Team Description 05/17/2022 Hospital Encounter Department of Alfredo Herrera Preo perative Exam Laboratory Medicine O.P.A.-C. and Pathology, [place] 200 [facility], in [place], [place] [address] [place] [address] [place], [place] (Work) [phone] Social History Tobacco Use Types Packs/Day Years [...] you attend yarsanism or Patient refused 2021 pentecostalism services? Do [...] THC multivit-min/iron/folic/ Take 1 tablet by 0 [id number] (HAIR, SKIN AND mouth daily. NAILS ADVANCED [...] needed for nausea. oxyCODONE (ROXICODONE) 5 Take 1-2 tablets 20 [...] pain meds.) Indication: Prolonged Acute Pain/Traumatic Injury. oxyCODONE (ROXICODONE) 5 Take 1 tablet (5 mg 30 tablet 0 06/16/2022 mg immediate release total) by mouth every tabletIndications: Acute 4 (four) hours as Pain, Acute Pain needed for severe Exception pain or score 7-10 of 10 Indication: Acute Pain, Acute Pain Exception. documented as of this encounter Plan of [...] CDT Manual Absolute 2.24 1.56 - 05/17/2022 [facility] Neutrophil Count 6.45 1:04 PM CDT x10(9)/L Comment: ----ADDITIONAL INFORMATION---- The manual absolute neutrophil count is derived from a manual differential count and therefore is not exactly comparable to the automated absolute leilani trophil count. Interpretation SeeComment 05/17/2022 1:04 PM CDT D HPM Comment: Hypochromic microcytic red blood cells a re present; consider iron deficiency anemia. Reviewed by: Priti 05/17/2022 1:04 PM CDT [facility] Specimen Anatomical Collection Method Collection Time Receive d Time (Source) Location / / Volume Laterality Blood 05/17/2022 10:50 05/17/2022 AM CDT 11:30 AM CDT Alfredo Kamara LAB BLOOD ADD-ON Performing Organization Address City/State/ZIP Code Phon e Number [facility] - [address] [place], [place] [address] [place] [address] [facility] [address] Basic Metabolic Panel (05/17/2022 10:50 AM CDT) [...] 05/17/2022 DTL Black/ mL/min/BSA 12:12 PM CDT Jamaican Comment: ----ADDITIONAL INFORMATION---- Estimated GFR calculated using [...] City/State/ZIP Code Phon e Number [facility] - [address] [place], [place] [address] [facility] [place] [address] [facility] [address] Type and Screen (with reflex Antibody ID) (05/17/2022 10:50 AM CDT) [facility] Method Time Signature ABORh A Neg Not [...] City/State/ZIP Code Phon e Number [facility] - [address] [place], [place] [address] [facility] [place] [address] [facility] [address] [facility] (ABNORMAL) CBC with Differential, Blood (05/17/2022 10:50 AM CDT) [facility] PLA[facility] Method Time Signature Hemoglobin 9.2 (L) 11.6 [...] City/State/ZIP Code Phon e Number [facility] - [address] [place], [place] [address] [facility] [place] [place] [address] [facility] [address] documented in this encounter Visit Diagnoses Diagnosis Preoperative Exam documented in this encounter Additional Health Concerns Infection Onset Date Last Indicated Resolved Time COVID19 Pending 05/17/2022 05/17/2022 05/17/2022 2:34 PM CDT Assessment Noted Time PHQ-9 Depression Total Score: 16 02/11/2021 12:00 AM C DT documented as of this encounter Care Teams High Lift Mule Operator Relationship Specialty Start Date End Date Elsewhere, Pcp PCP - General Family Medicine 12/25/21 documented as of this encounter
--- OUTSIDE RECORDS SUMMARY | 2022-08-01 06:40 | XMS_ITS | Encounter Summary ---
:1965 Author Organization [facility] Address [address] [place] [address] Care Team Providers Name Role Phone Elsewhere, Pcp Primary Care Provider Unavailable Encounter Details Date Type Department Care Team Description 05/03/2022 Hospital Encounter Department of Laboratory Shauna Rubin, Anemia Medicine and Pathology, [facility] [place] [address] [place] [phone] (Wo rk) Social History Tobacco Use Types [...] you attend religious or Patient refused 2021 protestant services? Do you belong to any clubs or No 05/17/2022 organizations such as religious groups, unions, fraternal or athletic groups, or [...] THC multivit-min/iron/folic/ Take 1 tablet by 0 [id number] (HAIR, SKIN AND mouth daily. NAILS ADVANCED [...] 17 gram/dose needed for oral powder constipation. SUMAtriptan (IMITREX) 5 1-2 sprays as needed. [...] Venous) AM CDT 10:53 AM CDT Narrative [facility] - 05/03/2022 11:47 AM CDT Specimen Information: Specimen ID: [id number] Specimen Type: Blood Specimen Collection Start Date: 10:11 AM Specimen Received Date: 05/03/2022 10:53 AM Specimen ID: [id number] Specimen Type: Blood Specimen Collection Start Date: 10:11 AM Specimen Received Date: 05/03/2022 10:53 AM Specimen ID: [id number] Specimen Type: Blood Specimen Collection Start Date: 10:11 AM Specimen Received Date: 05/03/2022 10:53 AM Specimen ID: [id number] Specimen Type: Blood Specimen Collection Start Date: 2 10:11 AM Specimen Received Date: 05/03/2022 10:32 AM Specimen ID: [id number] Specimen Type: Blood Specimen Collection Start Date: 2 10:11 AM Specimen Received Date: 05/03/2022 11:44 AM Shauna Rubin APRN C.N.P., M.S.N. LAB BLOOD ADD-ON Performing Organization Address City/State/ZIP Code Phon e Number [facility] - [address] [place], [place] [address] [facility] [place] [address] [facility] [address] documented in this encounter Visit Diagnoses Diagnosis Anemia documented in this encounter Additional Health Concerns Assessment Noted Time PHQ-9 Depression Total Score: 16 02/11/2021 12:00 AM C DT documented as of this encounter Care Teams Veterinary Practitioner Relationship Specialty Start Date End Date Elsewhere, Pcp PCP - General Family Medicine 12/25/21 documented as of this encounter
--- OUTSIDE RECORDS SUMMARY | 2022-08-01 06:40 | XMS_ITS | Encounter Summary ---
:1965 Author Organization [facility] Address [address] [place] [address] Care Team Providers Name Role Phone Elsewhere, Pcp Primary Care Provider Unavailable Encounter Details Date Type Department Care Team Description 04/21/2022 Clinical Communication Department of Cyrus Polk Orthopedic Surgery in [place] Sou[place], [place] [address] [place] [address] 200 [place] [phone] [phone] Social History Tobacco Use Types Packs/Day Years [...] you attend religion or Patient refused 2021 anabaptism services? Do [...] something else is going on . Angie [phone] documented in this encounter Plan of Treatment Not on filedocumented as of this encounter Visit Diagnoses Not on filedocumented in this encounter Additional Health Concerns Assessment Noted Time PHQ-9 Depression Total Score: 16 02/11/2021 12:00 AM C DT documented as of this encounter Care Teams Back Hanger Relationship Specialty Start Date End Date Elsewhere, Pcp PCP - General Family Medicine 12/25/21 documented as of this encounter
--- OUTSIDE RECORDS SUMMARY | 2022-08-01 06:40 | XMS_ITS | Encounter Summary ---
:1965 Author Organization [facility] Address [address] [place] [address] Care Team Providers Name Role Phone Elsewhere, Pcp Primary Care Provider Unavailable Encounter Details Date Type Department Care Team Description 05/11/2022 Clinical Communication Department of Cyrus Polk Orthopedic Surgery in [place], [place] [address] [place] [address] 200 [place] [phone] [phone] Social History Tobacco Use Types Packs/Day Years [...] you attend gnosticism or Patient refused 2021 sabianist services? Do [...] documented as of this encounter Care Teams Icing And Glaze Maker Relationship Specialty Start Date End Date Elsewhere, Pcp PCP - General Family Medicine 12/25/21 documented as of this encounter
--- OUTSIDE RECORDS SUMMARY | 2022-08-01 06:40 | XMS_ITS | Encounter Summary ---
:1965 Author Organization [facility] Address [address] [place] [address] Care Team Providers Name Role Phone Elsewhere, Pcp Primary Care Provider Unavailable Reason for Visit Outpatient (Routine) - Closed Specialty Diagnoses / Procedures Referred By Contact Refer red To Contact Anesthesiology Diagnoses Anemia Shauna Rubin APRN, [facility] C.N.P., M.S.N. [address] [place] [phone] Referral ID Status Reason Start Date Expiration Date Visits Requ ested Visits Authorized [id number] Closed 04/22/2022 04/22/2023 1 1 Encounter Details Date Type Department Care Team Description 05/03/2022 Comprehensive Visit Preoperative Evaluation Shauna Gomez, NIKKY, C.N.P., M.S.N. [address] [place] [phone] [facility] [place], Peter Tse R.N. [address] [place] [phone] [place] [address] [place] [phone] Social History Tobacco Use Types Packs/Day [...] you attend gnosticist or Patient refused 2021 jew services? Do [...] this and would like this administered @ [facility]. I provided the patient with the education pamphlet [id number] Treating Anemia Before Surgery andanswered her questions [...] documented as of this encounter Care Teams Executive Vice President Relationship Specialty Start Date End Date Elsewhere, Pcp PCP - General Family Medicine 12/25/21 documented as of this encounter
--- OUTSIDE RECORDS SUMMARY | 2022-08-01 06:40 | XMS_ITS | Encounter Summary ---
:1965 Author Organization [facility] Address [address] [place] [address] Care Team Providers Name Role Phone Elsewhere, Pcp Primary Care Provider Unavailable Encounter Details Date Type Department Care Team Description 04/14/2022 Hospital Encounter Department of Alfredo Herrera Total Shoulder Replacement Status Post Left; Laboratory Medicine A, O.P.A.-C. Painful Total Joint Arthroplasty Initial (HCC) and Pathology, [address] [place] [address], in [place] [phone] [place] [phone] [place] [address] (Work) [place], [place] [phone] (Fax) [phone] Social History Tobacco Use Types Packs/Day Years [...] you attend taoism or Patient refused 2021 holiness services? Do [...] THC multivit-min/iron/folic/ Take 1 tablet by 0 [id number] (HAIR, SKIN AND mouth daily. NAILS ADVANCED [...] 17 gram/dose needed for oral powder constipation. acetaminophen (TYLENOL) Take 2 capsules 0 022 [...] CDT Arthroplasty Initial proc edure are in ([facility]) the results section. C-REACTIVE PROTEIN Routine 04/14/2022 [...] Kamara LAB BLOOD ADD-ON Performing Organization Address City/State/[facility] Code Phon e Number [facility] - 200 [place], [place] [address] [facility] [place] [address] 200 [facility] (ABNORMAL) CBC without Differential (04/14/2022 10:42 AM CDT) Patholo gist Method Time Signature Hemoglobin 8.6 (L) [...] Organization Address City/State/ZIP Code Phon e Number [facility] - [address] [place], [place] [address] [facility] [place] [address] [address] [address] documented in this encounter Visit Diagnoses Diagnosis Arthroplasty Total Shoulder Replacement Status Post Left Painful Total Joint Arthroplasty Initial (HCC) documented in this encounter Additional Health Concerns Assessment Noted Time PHQ-9 Depression Total Score: 16 02/11/2021 12:00 AM C DT documented as of this encounter Care Teams Journalism Internship Relationship Specialty Start Date End Date Elsewhere, Pcp PCP - General Family Medicine 12/25/21 documented as of this encounter
--- OUTSIDE RECORDS SUMMARY | 2022-08-01 06:40 | XMS_ITS | Encounter Summary ---
:1965 Author Organization [facility] Address 200 [place] [address] Care Team Providers Name Role Phone Elsewhere, Pcp Primary Care Provider Unavailable Reason for Visit Reason Comments Discharge Planning Discharge Planning Encounter Details Date Type Department Care Team Description 05/06/2022 Clinical Communication Department of Kaushik Portillo Di scharge Planning Orthopedic Surgery R.N. (Discharge in [place] [address] [facility] Planning) [place], [place] [address] [place] [address] [place], [place] [phone] (Work) [phone] Social History Tobacco Use Types Packs/Day Years [...] many times do you More than three abarhan es a week 05/17/2022 talk on the phone with family, friends, or neighbors? How often do you get together with friends More than three t imes a week 05/17/2022 or relatives? How often do you attend faith or Patient refused 2021 scientologist services? Do [...] home. The role of the caregiver and auto driver will be filled by the patient's [...] to her history of falling. I encourage Ortho.Towboat Engineer to contact this patient, prior to surgery, [...] documented as of this encounter Care Teams Woven Blind Loom Tender Relationship Specialty Start Date End Date Elsewhere, Pcp PCP - General Family Medicine 12/25/21 documented as of this encounter
--- OUTSIDE RECORDS SUMMARY | 2022-08-01 06:40 | XMS_ITS | Encounter Summary ---
:1965 Author Organization [facility] Address [address] [place] [address] Care Team Providers Name Role Phone Elsewhere, Pcp Primary Care Provider Unavailable Reason for Visit Outpatient (Routine) - Closed Specialty Diagnoses / Procedures Referred By Contact Refer red To Contact Orthopedic Surgery Diagnoses Pain Shoulder Left Preoperative Exam Alfredo Herrera, [facility] OP.A.-C [address] [place] [phone] Referral ID Status Reason Start Date Expiration Date Visits Requ ested Visits Authorized [id number] Closed 04/22/2022 04/22/2023 1 1 Encounter Details Date Type Department Care Team Description 05/17/2022 Office Visit Department of Cyrus Polk, Raul Shou lder Left; Orthopedic Surgery in M.D. Preoperative Exam [place], [place] [address] [facility] [address] [place] [address] [phone] Social History Tobacco Use Types Packs/Day Years [...] you attend protestant or Patient refused 2021 mandaen services? Do you belong to any clubs or No 05/17/2022 organizations such as protestant groups, unions, fraInspherion or athletic groups, or school groups? How [...] may involve the use of a medical appointment scheduler made by a [employer] I or one of my partners have collaborated to design, develop, or improve orthopedic implants, instruments, or products. Both the [facility] and the individual surgeons involved receive royalty payments from the use of those specific devices at other institutions, but no royalties or any other payments are paid for the use of those devices with any [facility] patient. The clinical rationale for the use of those devices as well as the availability and applicability of alternative devices was reviewed. He understands that the final decision for the use of a specific medical appointment scheduler often is made at the time of [...] documented as of this encounter Care Teams Migration Agent Relationship Specialty Start Date End Date Elsewhere, Pcp PCP - General Family Medicine 12/25/21 documented as of this encounter
--- OUTSIDE RECORDS SUMMARY | 2022-08-01 06:40 | XMS_ITS | Encounter Summary ---
:1965 Author Organization [facility] Address [address] [place] [address] Care Team Providers Name Role Phone Elsewhere, Pcp Primary Care Provider Unavailable Reason for Referral Outpatient (Routine) - Closed Specialty Diagnoses / Procedures Referred By Contact Refer red To Contact Anesthesiology Diagnoses Anemia [facility] C.N.Hema, M.S.N. [address] [place] [address] [phone] Referral ID Status Reason Start Date Expiration Date Visits Requ ested Visits Authorized [id number] Closed 04/22/2022 04/22/2023 1 1 Encounter Details Date Type Department Care Team Description 04/22/2022 Orders Only Preoperative Evaluation Shauna Rubin (Primary Dx) Center in [facility], NIKKY [place], [place] M.S.N. [address] [place] [address] [place] [phone] [place], [place] [phone] Social History Tobacco Use Types Packs/Day Years [...] you attend taoism or Patient refused 2021 shinto services? Do [...] 05/03/2022 Venous) AM CDT 10:53 AM CDT [facility] - 05/03/2022 11:47 AM CDT Specimen Information: Specimen ID: [id number] Specimen Type: Blood Specimen Collection Start Date: 10:11 AM Specimen Received Date: 05/03/2022 10:53 AM Specimen ID: [id number] Specimen Type: Blood Specimen Collection Start Date: 2 10:11 AM Specimen Received Date: 05/03/2022 10:53 AM Specimen ID: [id number] Specimen Type: Blood Specimen Collection Start Date: 6/6/202 2 10:11 AM Specimen Received Date: 05/03/2022 10:53 AM Specimen ID: [id number] Specimen Type: Blood Specimen Collection Start Date: 2 10:11 AM Specimen Received Date: 05/03/2022 10:32 AM Specimen ID: [id number] Specimen Type: Blood Specimen Collection Start Date: 2 10:11 AM Specimen Received Date: 05/03/2022 11:44 AM Shauna Rubin APRN C.NCristiana, M.S.N. LAB BLOOD ADD-ON Performing Organization Address City/State/ZIP Code Phon e Number [facility] - [address] [place], [place] [address] [facility] [place] [address] [facility] [address] documented in this encounter Visit Diagnoses Diagnosis Anemia - Primary Anemia documented in this encounter Additional Health Concerns Assessment Noted Time PHQ-9 Depression Total Score: 16 02/11/2021 12:00 AM C DT documented as of this encounter Care Teams Vendor Management Associate Relationship Specialty Start Date End Date Elsewhere, Pcp PCP - General Family Medicine 12/25/21 documented as of this encounter
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
--- OUTSIDE RECORDS SUMMARY | 2022-08-01 06:40 | XMS_ITS | Encounter Summary ---
:1965 Author Organization [facility] Address [address] [place] [address] Care Team Providers Name Role Phone Elsewhere, Pcp Primary Care Provider Unavailable Reason for Referral MRI/CAT/PET Scan (Routine) - Closed Specialty Diagnoses / Procedures Referred By Contact Refer red To Contact Radiology Diagnoses Painful Total Joint Arthroplasty Initial ([facility]) Alfredo Herrera [place] Procedures [place] Shoulder Left without IV Contrast O.P.A.-C. [address] [place] [address] [phone] Referral ID Status Reason Start Date Expiration Date Visits Requ ested Visits Authorized [id number] Closed 04/02/2022 04/02/2023 1 1 Reason for Visit MRI/CAT/PET Scan (Routine) - Closed Specialty Diagnoses / Procedures Referred By Contact Refer red To Contact Radiology Diagnoses Painful Total Joint Arthroplasty Initial ([facility]) Alfredo Herrera [place] Procedures CT Shoulder Left without IV Contrast O.P.A.-C. [address] [place] [phone] Referral ID Status Reason Start Date Expiration Date Visits Requ ested Visits Authorized [id number] Closed 04/02/2022 04/02/2023 1 1 Encounter Details Date Type Department Care Team Description 04/14/2022 Hospital Encounter Department of Alfredo Herrera Painful Total Joint Radiology, [place] [place] Arthroplasty Initial Building, in [address] [place] [address] ([facility]) [facility] [phone] 200 [facility] [phone] [place], [place] (Work) [phone] Social History Tobacco Use Types Packs/Day Years [...] you attend buddhist or Patient refused 2021 latter day services? [...] THC multivit-min/iron/folic/ Take 1 tablet by 0 [id number] (HAIR, SKIN AND mouth daily. NAILS ADVANCED [...] documented as of this encounter Care Teams Site Physician Relationship Specialty Start Date End Date Elsewhere, Pcp PCP - General Family Medicine 12/25/21 documented as of this encounter
--- OUTSIDE RECORDS SUMMARY | 2022-08-01 06:40 | XMS_ITS | Encounter Summary ---
:1965 Author Organization [facility] Address [address] [place] [address] Care Team Providers Name Role Phone Elsewhere, Pcp Primary Care Provider Unavailable Reason for Referral Outpatient (Routine) - Closed Specialty Diagnoses / Procedures Referred By Contact Refer red To Contact Social Work Diagnoses Pain Shoulder Left Preoperative Exam Jenna Zaldivar [place] M.D. Referral ID Status Reason Start Date Expiration Date Visits Requ ested Visits Authorized [id number] Closed 05/10/2022 05/10/2023 1 1 Reason for Visit Reason Comments Pre-visit Testing Orders Encounter Details Date Type Department Care Team Description 05/07/2022 Clinical Communication Department of Jam, Pre- visit Testing Orthopedic Surgery Cyrus Souza M.D. Orders in [address] [place] [phone] [place], [place] [phone] (Work) [phone] Social History Tobacco Use Types Packs/Day Years [...] you attend worship or Patient refused 2021 lutheran services? Do [...] Name Type Priority Associated Diagnoses Order S [facility] Social Work - Outpatient Referral Routine Pain Shoulde r Left Expected: General consult Preoperative Exam 022 (clinic) (Approximate), Expires: 08/07/2023 documented as of this encounter Visit Diagnoses Diagnosis Pain Shoulder Left - Primary Preoperative Exam documented in this encounter Additional Health Concerns Assessment Noted Time PHQ-9 Depression Total Score: 16 02/11/2021 12:00 AM C DT documented as of this encounter Care Teams Supervisor Welding Equipment Repairer Relationship Specialty Start Date End Date Elsewhere, Pcp PCP - General Family Medicine 12/25/21 documented as of this encounter
--- OUTSIDE RECORDS SUMMARY | 2022-08-01 06:40 | XMS_ITS | Encounter Summary ---
:1965 Author Organization [facility] Address [address] [place] [address] Care Team Providers Name Role Phone Elsewhere, Pcp Primary Care Provider Unavailable Reason for Visit Reason Comments Pre-visit Intake Encounter Details Date Type Department Care Team Description 05/12/2022 Clinical Communication Department of Cyrus Polk e-visit Intake Orthopedic Surgery Lilian Souza in [address] [place] [phone] [place], [place] [phone] (Work) [phone] Social History Tobacco Use Types Packs/Day Years [...] you attend hinduism or Patient refused 2021 baptist services? Do [...] documented as of this encounter Care Teams Marketing Analytics Specialist Relationship Specialty Start Date End Date Elsewhere, Pcp PCP - General Family Medicine 12/25/21 documented as of this encounter
--- OUTSIDE RECORDS SUMMARY | 2022-08-01 06:40 | XMS_ITS | Encounter Summary ---
:1965 Author Organization [facility] Address [address] [place] [address] Care Team Providers Name Role Phone Elsewhere, Pcp Primary Care Provider Unavailable Encounter Details Date Type Department Care Team Description 05/18/2022 Surgery RST [facility]AN OR Cyrus Polk, ARTHROPLASTY REPLACEMENT [address] [facility] [facility] [place] [address] 200 [facility] [phone] [place] [address] Social History Tobacco Use Types Packs/Day Years [...] attend oriental orthodox or Patient refused 2021 sabianism services? Do [...] or the highest technical, or vocational p NovoEDram degree you have received? Sex Assigned at [...] AM CDT DISCHARGE SUMMARY BRIEF OVERVIEW Hospital: [facility] Discharge Provider: Cyrus Polk M.D. [...] R, M.D. RST ROEI OR DISCHARGE DISPOSITION [facility] [place]6] ACTIVE ISSUES REQUIRING FOLLOW UP This document serves as a prescription to continue physical therapy, medications, and labs or x-raysif ordered/required. If you have any questions or concerns about surgery or upcoming appointments, please do not hesitateto contact Dr. Polk's office at [phone] during regular business hours (8am-5pm M-F). For emergencies on the weekend or after hours, you may contact Dr. Polk's service via the [facility] defensive fire control systems operator at [phone]. Details for your 6 week follow-up appointment [...] to: Cyrus Polk MD Dept of Orthopedics [address], [address] None OUTPATIENT FOLLOW UP For appointment details [...] Cyrus Polk M.D.Jenna Zaldivar M.D.Kaushik Cadena M.D. [facility] OR Angie Mosquera was taken [...] THC multivit-min/iron/folic/ Take 1 tablet by 0 [id number] (HAIR, SKIN AND mouth daily. NAILS ADVANCED [...] mask during therapy session: yes Outcome Measures AM-PAC Inpatient Short Form: AM-PAC [...] Time (min): 27 min Jey Harper P.T., NeriPBrittonTBritton Kaushik Cadena M.D. - 05/20/2022 7:31 AM [...] 6 pm, please page Jam service at [phone] For urgent matters from 6 pm until 6 am, please page Ortho House at [facility] [phone] Jane Nguyen PharmBrittonDBritton, R.Ph. - 05/19/2022 8:12 AM CDT Pharmacist [...] at this time. Jane Nguyen Pharm.D., R.Ph. [phone] Kaushik Cadena M.D. - 05/19/2022 7:34 AM [...] 6 pm, please page Jam service at [phone] For urgent matters from 6 pm until 6 am, please page Ortho [place] at [facility] [phone] Paco Valentine - 05/18/2022 9:47 AM CDT Encounter: AM Admit Deanna Tradition: No sabianism affiliation. Ms. Mosquera did not express any spiritual needs at this time. Plan: Will remain available for spiritual care as needed or requested. Chaplains can be contacted bypaging [phone] ([facility]). Rodrigo Preston, Pharm.D., R.Ph. - 05/18/2022 9:17 [...] Take 150 mg by mouth every morning. eshbdqgqss-grvfdrldbnzva-urpn (ESGIC) 50-325-40 mg per tablet Past Week [...] 1 spray as needed. 5 mg THC multivit-min/iron/folic/kzw099 (HAIR, SKIN AND NAILS ADVANCED ORAL) Past [...] (HCC) ??? Nicotine Dependence Unspecified ??? 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 Direct Infection Of [...] Profile Lives With: Alone Receives Help From: turn down attendant, Family, Friend(s) ADL Assistance: Required assistance ADL Assistance Comments: Gets help from SANITATION LABORER for her bath/shower 3x/week, and for her meals IADL/Homemaking Assistance: Required assistance IADL/Homemaking Assistance Comments: Gets help for housecleaning Driving: Does not drive Driving Comments: takes her cane and medical alert with her. Occupational Role: On disability Occupational Role Comments: Previously worked at a [employer] Prior Mobility/Functional Transfers Level of [place]: Needs assistance Previous Transfer/Mobility Assistance Comments: Patient [...] during therapy session: yes Outcome Measures -[facility] Inpatient Short Form: AM-[facility] Basic Mobility (V.2) How much help [...] 3-5 steps with a railing?: A Little AM-[facility] Basic Mobility (V.2) Raw Score: 18 -[facility] Basic Mobility (V.2) Standardized Score: 41.05 Interpretation: Clinicians answer the -[facility] Inpatient Short Form based on observed [...] min Jey Harper P.T., D.P.T. Roland Hall, RBrittonN. - 05/19/2022 11:40 AM CDTAssociated Order(s): IP CONSULT TO CARE MANAGEMENT; IP CONSULT TO CARE MANAGEMENT Discharge Planning Assessment SUBJECTIVE Assessment Information Referral Source: Nurse Referral Reason: Discharge Planning Primary Language: Turkmen Machine Wedger Services Used: No Person(s) present during interview: Person(s) Present During Interview: patient History of Present Illness #1 Primary Osteoarthritis Shoulder Left Social History Support System: children, shelter case manager/social sciences instructor, friends/neighbors and home care staff [...] Calm, Oriented Communication: Talks, Understands speaking, Understands Turkmen Shopping: Needs assistance Transportation: Support from family Medication Management: Needs assistance Housekeeping: Needs assistance Meal Prep: Needs assistance Managing Finances: Independent Assistive Devices: Grab bars - wall, Eyeglasses Services/Resources: Other (comment) Agency Name: [facility] Services Provided: SANITATION LABORER services 3x/week, nurse visits every other week Baseline Services/Resources Primary care clinic and provider: [facility] Phone: Fax: Anticipated Needs Functional Status: Transfer to/from bed, chair, etc., Bathing, Dressing, Grooming/hygeine, Housekeeping, Shopping, Meal preparation, Mobility, Medication set-up/administration, Transportation use (drive car, use taxi/bus) Services/Resources: Other (comment) Agency Name: [facility] Services Provided: SANITATION LABORER services 3x/week, nurse visits every other week Transportation Needs: Support from family Does the patient need discharge transport arranged?: No Ride and Caregiver Arranged: Yes Anticipated Discharge Dest[place] [facility] [place] / PLAN Assessment: The montessori program director met with Angie Mosquera to discuss her current hospitalization and home goingneeds. The patient was unaccompanied. The patient was a reliable historian. The role of montessori program director was reviewed. The patient reviewed her prior level of care and support system. The patient receives support from her son, friends and home care staff. Patient reported her son lives in the same apartment as her. She also stated getting SANITATION LABORER services 3x/week and a nurse visits her every other week. The patient described her living environment as a two bedroom apartment. Housekeeping, grocery shopping, meal prep, and other household responsibilities have previously been completed by patient, patient's son and patient's caregiver(s). montessori program director discussed the patient's potential needs at [facility] based on their home setting, previous needs and responsibilities, homebound status, and relevantassessments with the patient. The patient will be safe and supported to return home with [facility] or previous services noted above when medically ready. Support will be provided by son, friends and home care staff. The patient demonstrated understanding when discussing her home going plans and anticipated needs. At this time, the care team anticipates the patient requires the following service(s) to be reconnected: home healthcare. The patient identified the following as their current vendor(s): [facility]. During this visit patient verbalized she is hoping to increase her SANITATION LABORER hours and also inq uired about getting a scooter to assist in her mobility. Patient went on to share she is unstable attimes due to her stroke history. She thought perhaps her neurology doctor would be able to help her get a scooter. RN CM recommended she follow up with the [facility] in regards to wanting more SANITATION LABORER hours. She was also recommended to follow up with her primary care provider to provide durable medical equipment justification for a scooter, as she is currently hospitalized for orthopedic surgery. Patient verbalized understanding. Patient informed RN ROWAN would be reconnecting her SANITATION LABORER services and nurse visits with [facility]. Patient agreeable to RN CM completing this and even provided RN CM the name and contact of her SANITATION LABORER and RN. After reviewing the patient's chart and meeting with the patient, the montessori program director deemed the LACE+/readmission questions were not necessary. The patient reports understanding that she will dismiss from the hospital when medically stable. Pending hospital course and medical readiness, no barriers to dismissal have been identified at this time. Plan: Patient to discharge with home health care. [facility] Contact: RADHA Palomino ATTN: Georgette NURSING: - [...] directive. PRIMARY SERVICE: - Please provide a non-[place] home health order for resumption of previous [...] dismissal will be provided by family. 3. montessori program director recommended reaching out to family, friends, and neighbors for assistance. 4. montessori program director provided information regarding the dismissal process. 5. montessori program director placed or requested the following hospital-based consult orders and/or referrals:None. 6. montessori program director will continue to assess for homegoing needs with the interdisciplinary team. 7. montessori program director encouraged the patient to reach out with [...] falls. Patient will discharge to home with [facility] reconnect. Identify possible barriers to meeting goals/advancing plan of care: none End of Shift Summary: Patient stayed on schedule with prn pain meds (Tramadol and oxycodone) throughout the shift. Encouraged using ice packs to help with pain and swelling. Patient's primapore dressing was changed to Aquacell AG and is clean, dry and intact. Patient has baseline numb/tingling, moderate grinder operator surface tool, skin pink and warm with +2 pulses. Patient expects RN from [facility] to visit on Tuesday, May 24. Patient's friend will transport home. Medications including: oxycodone and tramadol were picked up [facility]. documented in this encounter OR Notes Op Note - Cyrus Polk M.D. - 05/18/2022 5:54 PM CDT STAFF: Cyrus Polk M.D. RESIDENT: Jenna Zaldivar M.D. PRE-OPERATIVE DIAGNOSIS Left dislocated reverse arthroplasty. POST-OPERATIVE DIAGNOSIS Left dislocated reverse arthroplasty. A contact lens assistant actively participated and was necessary for [...] glenosphere, placement new humeral stem and tray, [id number] Cyrus Polk M.D. CT CT Job ID: [id number] documented in this encounter Miscellaneous Notes Hospital Course - Kaushik Cadena M.D. - 05/19/2022 12:18 PM CDT Surgery Information This Encounter Past Procedures (05/19/2021 to Today) Date Procedures Providers Location 05/18/2022 ARTHROPLASTY REPLACEMENT TOTAL SHOULDER. Cyrus Polk M.D.Wasserburger, Jory N, M.D.Markos, James R, M.D. [facility] OR Angie Mosquera was taken [...] with Differential, Blood (05/20/2022 3:43 AM CDT) [facility] Method Time Signature Hemoglobin 8.4 (L) [...] Organization Address City/State/ZIP Code Phon e Number [facility] - [address] [place] [address] [address] [facility] [place] [address] [facility] 200 [facility] (ABNORMAL) CBC with Differential, Blood (05/19/2022 3:26 AM CDT) [facility] Method Time Signature Hemoglobin 7.6 (L) [...] Organization Address City/State/ZIP Code Phon e Number [facility] - [address] [place], [place] [address] [facility] [place] [address] [facility] [address] (ABNORMAL) Basic Metabolic Panel (05/19/2022 3:26 AM [...] 05/19/2022 DTL Black/ mL/min/BSA 4:38 AM CDT Tristanian Comment: ----ADDITIONAL INFORMATION---- Estimated GFR calculated using [...] AM 05/19/20 4:22 Venous) CDT AM CDT Kaushki Cadena M.D. LAB BLOOD ADD-ON Performing Organization Address City/State/ZIP Code Phon e Number [facility] - [address] [place], [place] [address] [facility] [place] [address] [facility] [address] DX Shoulder [...] Jenna Zaldivar M.D. IMG DIAGNOSTIC IMAGING PROCE [facility] Surgical Pathology, Frozen Lab (05/18/2022 1:04 PM CDT) Component Value Ref Test Analysis Performed At [facility] [place] Method Time Signature 05/20/2022 METH [...] LAB SURG PATH ORDERABLES Performing Organization Address City/[facility] Phon e Number [facility] - [address] [place], [place] [address] [facility] [place] [address] [facility] 200 [facility] Bacteria Cult, Aerobe / Anaerobe+Susc (05/18/2022 1:03 PM CDT) [facility] gist Method Time Signature Bacteria Cult, No growth 06/01/2022 DT Aerobe/Anaerob after 14 6:02 PM CDT e+Susc days of incubation. Specimen Anatomical Collection Method Collection Time Receive d Time (Source) Location / / Volume Laterality Shoulder, Left 05/18/2022 1:03 PM 022 5:21 CDT PM CDT Comment: Specimen Source Site: Tissue #1 Narrative [facility] [place] - 06/01/2022 6:02 PM CDT Bacterial Culture: Placed in Bactec aero bic and Bactec anaerobic bottles Cyrus Polk M.D. LAB MICROBIOLOGY - GENERAL O RDERABLES Performing Organization Address City/[facility]/ZIP Code Phon e Number [facility] - [address] [place], [place] [address] [place], [place] [id number] [place] [address] 200 [facility] Bacteria Cult, Aerobe / Anaerobe+Susc (05/18/2022 1:03 PM CDT) [facility] Method Time Signature Bacteria Cult, No growth 06/01/2022 DTL Aerobe/Anaerob after 14 6:02 PM CDT e+Susc days of incubation. Specimen Anatomical Collection Method Collection Time Receive d Time (Source) Location / / Volume Laterality Shoulder, Left 05/18/2022 1:03 PM 022 5:12 CDT PM CDT Comment: Specimen Source Site: Tissue #3 Narrative [facility] - 06/01/2022 6:02 PM CDT Bacterial Culture: Placed in Bactec aero bic and Bactec anaerobic bottles Cyrus Polk M.D. LAB MICROBIOLOGY - GENERAL O MARY Performing Organization Address City/[facility]/ZIP Code Phon e Number [id number] [place] [address] Bacteria Cult, Aerobe / Anaerobe+Susc (05/18/2022 1:03 PM CDT) [facility] Method Time Signature Bacteria Cult, No growth 06/01/2022 DTL Aerobe/Anaerob after 14 6:02 PM CDT e+Susc days of incubation. Specimen Anatomical Collection Method Collection Time Receive d Time (Source) Location / / Volume Laterality Shoulder, Left 05/18/2022 1:03 PM 022 5:07 CDT PM CDT Comment: Specimen Source Site: Tissue #2 Narrative [facility] - 06/01/2022 6:02 PM CDT Bacterial Culture: Placed in Bactec aero bic and Bactec anaerobic bottles Cyrus Polk M.D. LAB MICROBIOLOGY - GENERAL O MARY Performing Organization Address City/[facility] Phon e Number [id number] [place] [address] documented in this encounter Visit Diagnoses Diagnosis [...] 05/19/2022 05/20/2022 acetaminophen tablet 1,000 mg (TYLENOL) 9484 (Given - Provider: Corrie Toscano RBrittonN.)7304 (Given - Provider: Catalina Mccloud RBrittonN.) 0511 (Given - Provider: Catalina Mccloud R.N.)1156 (Given - Provider: Isaura Vu RBrittonN.)1725 (Given - Provider: Sen Thorne., R.N., O.C.N.) 0125 (Given - Provider: Leticia Pérez, R.N.)0552 (Given - Provider: Jere Levy R.N.)1206 [...] Macias R.N.) 2226 (Given - Provider: Jonny ThorneSBrittonNBritton, R. N., O.C.N.) 80 mg, oral, Daily [...] (New Bag - Provider: Bettie Macias R.N.) 0338 (New Bag - Provider: Catalina claudio R.N.) 2 g, intravenous, at 200 mL/hr, [...] 1240 (Given - Provider: Ihsan Townsend APRN, JUSTICE COURT DEPUTY CLERK) 2,000 mg (rounded from 1,652.5 mg = [...] Vu R.N.)1725 (Not Given - Provider: Candace Lanza M.S.N., R.N., O.C.N. - Reason: Contraindicated - Comment: [...] Isaura Vu R.N.)2225 (Given - Provider: Jonny ThorneSBetsy, R.N., O.C.N. - Comment: pt request) 0909 [...] (CANCELED) 0612 (Given - Provider: Catalina Mccloud RBetsy) 40 mg, oral, Daily before breakfast, Fir [...] (LYRICA) 0857 (Given - Provider: Isaura Vu R.N.)2223 (Given - Provider: Carole Thorne.S.NBritton, R.N., O.C.N. - Comment: pt request) 09 [...] La Rosa R.N.) 222 (Given - Provider: Candace Lanza, Carole.S.N., R.N., O.C.N. - Comment: pt request) 2 mg, oral, Daily at bedtime, First dose on Tue05/18/22 at 2100 sennosides-docusate sodium 8.6-50 mg per tablet 1 tabl et (SENOKOT-S) 2051 (Given - Provider: Bettie Macias R.N.) 0849 (Given - Provider: Isaura Vu R.N.)2224 (Given - Provider: Candace Lanza, Carole.S.N., R.N., O.C.N. - Comment: pt request) 0908 (Given - Provider: Isaura Vu R.N.) 1 tablet, oral, 2 times daily, First dos e on Tue05/18/22 at 2100, Do not give if patient has diarrhea. tranexamic acid in NaCl IVPB 1,000 mg (CYKLOKAPRON) (C OMPLETED) 1240 (Given - Provider: Ihsan Townsend APRN, [facility]) 1,000 mg (1 g), intravenous, at 300 [...] Macias R.N.) 0848 (Given - Provider: Isaura H Mirella , R.N.)2224 (Given - Provider: Candace Lanza M.S.N., R.N., O.C.N. - Comment: pt request) 0996 (Given - Provider: Isaura Vu RBetsy) 300 mg, oral, 2 times daily, First [...] (TESSALON PERLES) 0501 (Given - Provider: Catalina Mccloud RBrittonN.)2233 (Given - Provider: Jonny ThorneS.N., R.N., O.C.N.) 100 mg, oral, 3 times [...] (TUMS) 1015 (Given - Provider: Isaura Vu RRebekah.)1957 (Given - Provider: Melissa Garcia RBrittonN.)2241 (Given - Provider: Carole Thorne.S.N., R.N., O.C.N.) 400 mg of calcium, oral, Every 2 hour SD N, indigestion, Starting on Tue05/18/22 at 1608, [...] R.N.) 0504 (Given - Provider: Catalina Mccloud RBrittonN.) 092 1 (Given - Provider: Isaura Vu R.N.) 25 mg, oral, Every 6 hours PRN, itching, Starting on Tue05/18/22 at 1722 fentaNYL injection 25 mcg (SUBLIMAZE) (CANCELED) 1121 (Given - Provider: Cristy Rosario RBetsy) 25 mcg, intravenous, Every 2 min [...] (CANCEL ED) 1450 (Given - Provider: Viktoriya M Land, R.N.)1506 (Given - Provider: Sharifa CurielN.)1516 (Given - Provider: Viktoriya Land R.N.) 0.2 mg, intravenous, Every 5 min PRN, mo derate pain or score 4-6 of 10, severe pain or score 7-10 of 10, Starting on Tue05/18/22 at 1414, PACU (only), Up to maximum total dose of 2 mg HYDROmorphone (PF) injection 0.2 mg (DILAUDID) 2241 (Given - Provider: Candace Lazna M.S.N., R.N., O.C.N.) 0.2 mg, intravenous, Every 2 hour PRN, s evere pain or score 7-10 of 10, Starting on Tue05/18/22 at 2303 lactated ringers (COMPLETED) 1120 (New Bag - Provider: Cristy Rosario R.N.) 20 mL/hr, intravenous, Once as needed, t o keep vein open, Starting on Tue05/18/22 at 1055, For 1 dose, Pre-Op midazolam (PF) injection 1 mg (VERSED) (CANCELED) 1119 (Given - Provider: Crsity Rosario RBetsy) 1 mg, intravenous, Every 2 [...] mg (ZOFRAN) 2123 (Given - Provider: Jere Levy, R.N.) 1502 (Given - Provider: Kiana Ramírez R.NBritton) 4 mg, intravenous, Every 6 hours PRN, [...] Toscano RBrittonN.)2339 (Given - Provider: Catalina Mccloud RBrittonN.) 0339 (Given - Provider: Sharifa ArcherN.)0742 (Given - Provider: Christiano Archer.N.)1153 (Given - Provider: Isaura Vu RBetsy) 10 mg, oral, Every 4 hours PRN, severe p ain or score 7-10 of 10, Starting on Tue05/18/22 at 1608 oxyCODONE IR tablet 10 mg (ROXICODONE) (COMPLETED) 111 2 (Given - Provider: Cristy Rosario R.NBritton) 10 mg, oral, Once as needed, moderate pa in or score 4-6 of 10, severe pain or score 7-10 of 10, Starting on Tue05/18/22 at 1109, For 1 dose, Pre-Op oxyCODONE IR tablet 10 mg (ROXICODONE)(Linked Group 1) 1600 (Given - Provider: Isaura Vu R.N.)2005 (See Alternative - Provider: Melissa Garcia RBrittonN.) 0124 (See Alternative - Provider: Jonny PérezSBetsy, [...] Melissa Garcia R.N.) 0124 (Given - Provider: Leticia Pérez, R.N.)0552 (Given - Provider: Jere Levy R.N.)1004 (Given - Provider: Isaura Vu R.N. - Comment: -08/07 per pt)1406 (Given - Provider: Isaura Vu [...] over 3 days 1 patch (TRANSDERM S DATA NETWORK ARCHITECT) (CANCELED) 1118 (Medication Applied - Provider: Cristy [...] 2) 2050 ( See Alternative - Provider: Betite Macias R.N.) 0612 (Given - Provider: Catalina lerma R.N.)1209 (Given - Provider: Sharifa CuevasNBritton) 0124 (Given - Provider: Rafal Waller M.S.N., R.N.)0732 (Given - Provider: Sharifa CuevasNBritton)1359 (Given - Provider: Isaura Vu R.N.) 100 [...] R.N.)1209 (See Alternative - Provider: Isaura Vu RBrittonN.) 0124 (See Alternative - Provider: Rafal Waller, M.S.N., R.N.)0732 (See Alternative - Provider: Sharifa CuevasN.)1359 (See Alternative - Provider: Sharifa CuevasNBritton) 50 mg, oral, Every 6 hours PRN, [...] documented as of this encounter Care Teams Food Preservation Scientist Relationship Specialty Start Date End Date Elsewhere, Pcp PCP - General Family Medicine 12/25/21 documented as of this encounter
--- OUTSIDE RECORDS SUMMARY | 2022-08-01 06:41 | XMS_ITS | Encounter Summary ---
:1965 Author Organization [facility] Address [address] [place] [address] Care Team Providers Name Role Phone Elsewhere, Pcp Primary Care Provider Unavailable Encounter Details Date Type Department Care Team Description 03/08/2022 Documentation Department of Orthopedic Melissa Mcdonald M.D. Surgery in [place], [place] [address] [place] [address] Social History Tobacco Use [...] you attend episcopalian or Patient refused 2021 confucianist services? Do [...] documented as of this encounter Care Teams Railcar Brake Operator Relationship Specialty Start Date End Date Elsewhere, Pcp PCP - General Family Medicine 12/25/21 documented as of this encounter
--- OUTSIDE RECORDS SUMMARY | 2022-08-01 06:41 | XMS_ITS | Encounter Summary ---
:1965 Author Organization [facility] Address [address] [place] [address] Care Team Providers Name Role Phone Elsewhere, Pcp Primary Care Provider Unavailable Reason for Visit Reason Comments Medication Question Encounter Details Date Type Department Care Team Description 03/08/2022 Clinical Communication Department of Jose Polk Orthopedic Surgery Cyrus Souza M.D. in [place], [facility] [place], [place] [address] [place] [id number] [place], [place] [phone] (Work) [phone] Social History Tobacco Use Types Packs/Day Years [...] you attend congregation or Patient refused 2021 yarsanism services? Do [...] 03/08/2022 11:22 AM CDT Kylie, pharmacist at [facility] in [place] calls. She is wondering if you indeed want to fill it. Please call her back at [phone] Regarding the oxycodone script sent today---patient had [...] documented as of this encounter Care Teams Air Export Logistics Manager Relationship Specialty Start Date End Date Elsewhere, Pcp PCP - General Family Medicine 12/25/21 documented as of this encounter
--- OUTSIDE RECORDS SUMMARY | 2022-08-01 06:41 | XMS_ITS | Encounter Summary ---
:1965 Author Organization [facility] Address [address] [place] [address] Care Team Providers Name Role Phone Elsewhere, Pcp Primary Care Provider Unavailable Encounter Details Date Type Department Care Team Description 02/26/2022 Clinical Communication [facility] Blanca Galan Eisenberg C.Ph.T. [address] [facility] [phone] [place], [place] (Work) [address] Social History Tobacco Use [...] you attend buddhist or Patient refused 2021 tenriism services? Do [...] documented as of this encounter Care Teams Bag Washer Relationship Specialty Start Date End Date Elsewhere, Pcp PCP - General Family Medicine 12/25/21 documented as of this encounter
--- OUTSIDE RECORDS SUMMARY | 2022-08-01 06:41 | XMS_ITS | Encounter Summary ---
:1965 Author Organization [facility] Address [address] [place] [address] Care Team Providers Name Role Phone Elsewhere, Pcp Primary Care Provider Unavailable Reason for Visit Reason Comments Med Refill Encounter Details Date Type Department Care Team Description 03/02/2022 Refill Division of [facility] Ridge Vega M.D. Med Refill Internal Medicine, [place] [address] [address] [facility] [place] [address] [place] [address] [place] [address] [place] [address] Social History Tobacco Use [...] you attend buddhism or Patient refused 2021 caodaism services? Do [...] documented as of this encounter Care Teams Sheet Hanger Relationship Specialty Start Date End Date Elsewhere, Pcp PCP - General Family Medicine 12/25/21 documented as of this encounter
--- OUTSIDE RECORDS SUMMARY | 2022-08-01 06:41 | XMS_ITS | Encounter Summary ---
:1965 Author Organization [facility] Address [address] [place] [address] Care Team Providers Name Role Phone Elsewhere, Pcp Primary Care Provider Unavailable Reason for Visit Reason Comments pre op orders Encounter Details Date Type Department Care Team Description 04/02/2022 Clinical Communication Department of Cyrus Polk op orders Orthopedic Surgery in Lilian Souza [place], [place] [address] [place] [address] 200 [place] [phone] Social History Tobacco Use Types Packs/Day Years [...] you attend tenriism or Patient refused 2021 muslim services? Do [...] documented as of this encounter Care Teams Geological Technical Officer Relationship Specialty Start Date End Date Elsewhere, Pcp PCP - General Family Medicine 12/25/21 documented as of this encounter
--- OUTSIDE RECORDS SUMMARY | 2022-08-01 06:41 | XMS_ITS | Encounter Summary ---
:1965 Author Organization [facility] Address [address] [place] [address] Care Team Providers Name Role Phone Elsewhere, Pcp Primary Care Provider Unavailable Encounter Details Date Type Department Care Team Description 03/03/2022 Orders Only Pharmacy Prior Auth Ana Rosa Ying [phone] Social History Tobacco Use Types Packs/Day Years [...] you attend christian or Patient refused 2021 druze services? Do [...] documented as of this encounter Care Teams Sexual Assault Counsellor Relationship Specialty Start Date End Date Elsewhere, Pcp PCP - General Family Medicine 12/25/21 documented as of this encounter
--- OUTSIDE RECORDS SUMMARY | 2022-08-01 06:41 | XMS_ITS | Encounter Summary ---
:1965 Author Organization [facility] Address [address] [place] [address] Care Team Providers Name Role Phone Elsewhere, Pcp Primary Care Provider Unavailable Encounter Details Date Type Department Care Team Description 03/03/2022 Orders Only Pharmacy Prior Auth Yady Lebron [phone] Social History Tobacco Use Types Packs/Day Years [...] you attend taoism or Patient refused 2021 orthodoxy services? Do [...] documented as of this encounter Care Teams Superintendent Production Relationship Specialty Start Date End Date Elsewhere, Pcp PCP - General Family Medicine 12/25/21 documented as of this encounter
--- OUTSIDE RECORDS SUMMARY | 2022-08-01 06:41 | XMS_ITS | Encounter Summary ---
:1965 Author Organization [facility] Address [address] [place] [address] Care Team Providers Name Role Phone Elsewhere, Pcp Primary Care Provider Unavailable Encounter Details Date Type Department Care Team Description 03/12/2022 Orders Only Department of Melissa Mcdonald Arthroplas ty Total Orthopedic Surgery in M.D. Should er Replacement [place], [place] Status Post Left [address] [facility] (Primary Dx) [place] [address] Social History Tobacco Use Types [...] you attend alevism or Patient refused 2021 adventism services? Do [...] documented as of this encounter Care Teams Energy Attorney Relationship Specialty Start Date End Date Elsewhere, Pcp PCP - General Family Medicine 12/25/21 documented as of this encounter
--- OUTSIDE RECORDS SUMMARY | 2022-08-01 06:41 | XMS_ITS | Encounter Summary ---
:1965 Author Organization [facility] Address [address] [place] [address] Care Team Providers Name Role Phone Elsewhere, Pcp Primary Care Provider Unavailable Encounter Details Date Type Department Care Team Description 03/08/2022 Orders Only Department of Orthopedic Melissa Mcdonald M.D. Surgery in [place], [place] [address] [place] [address] Social History Tobacco Use [...] documented as of this encounter Care Teams Wire Frame Dipper Relationship Specialty Start Date End Date Elsewhere, Pcp PCP - General Family Medicine 12/25/21 documented as of this encounter
--- OUTSIDE RECORDS SUMMARY | 2022-08-01 06:41 | XMS_ITS | Encounter Summary ---
:1965 Author Organization [facility] Address [address] [place] [address] Care Team Providers Name Role Phone Elsewhere, Pcp Primary Care Provider Unavailable Encounter Details Date Type Department Care Team Description 03/02/2022 Orders Only Pharmacy Prior Auth Ana Rosa Ying [phone] Social History Tobacco Use Types Packs/Day Years [...] you attend nondenominational or Patient refused 2021 religion services? Do [...] documented as of this encounter Care Teams Brusher Tender Relationship Specialty Start Date End Date Elsewhere, Pcp PCP - General Family Medicine 12/25/21 documented as of this encounter
--- OUTSIDE RECORDS SUMMARY | 2022-08-01 06:41 | XMS_ITS | Encounter Summary ---
:1965 Author Organization [facility] Address [address] [place] [address] Care Team Providers Name Role Phone Elsewhere, Pcp Primary Care Provider Unavailable Encounter Details Date Type Department Care Team Description 03/03/2022 Orders Only Pharmacy Prior Auth Usha Maurer [phone] Social History Tobacco Use Types Packs/Day Years [...] you attend druze or Patient refused 2021 mu-ism services? Do [...] documented as of this encounter Care Teams Eye Care Professional Relationship Specialty Start Date End Date Elsewhere, Pcp PCP - General Family Medicine 12/25/21 documented as of this encounter
--- OUTSIDE RECORDS SUMMARY | 2022-08-01 06:41 | XMS_ITS | Encounter Summary ---
:1965 Author Organization [facility] Address [address] [place] [address] Care Team Providers Name Role Phone Elsewhere, Pcp Primary Care Provider Unavailable Encounter Details Date Type Department Care Team Description 03/02/2022 Orders Only Pharmacy Prior Auth Sarmad Solano [phone] Social History Tobacco Use Types Packs/Day Years [...] you attend religious or Patient refused 2021 tenriism services? Do [...] documented as of this encounter Care Teams Ship Rigger Relationship Specialty Start Date End Date Elsewhere, Pcp PCP - General Family Medicine 12/25/21 documented as of this encounter
--- OUTSIDE RECORDS SUMMARY | 2022-08-01 06:41 | XMS_ITS | Encounter Summary ---
:1965 Author Organization [facility] Address [address] [place] [address] Care Team Providers Name Role Phone Elsewhere, Pcp Primary Care Provider Unavailable Encounter Details Date Type Department Care Team Description 03/05/2022 Clinical Communication Pharmacy Prior Auth Ben Chino RO M.D. [phone] Social History Tobacco Use Types Packs/Day Years [...] you attend jewish or Patient refused 2021 mormonism services? Do [...] documented as of this encounter Care Teams Entrepreneurial Finance Professor Relationship Specialty Start Date End Date Elsewhere, Pcp PCP - General Family Medicine 12/25/21 documented as of this encounter
--- OUTSIDE RECORDS SUMMARY | 2022-08-01 06:41 | XMS_ITS | Encounter Summary ---
:1965 Author Organization [facility] Address [address] [place] [address] Care Team Providers Name Role Phone Elsewhere, Pcp Primary Care Provider Unavailable Encounter Details Date Type Department Care Team Description 03/05/2022 Orders Only Pharmacy Prior Auth RO Elsewhere, Pcp [phone] Social History Tobacco Use Types Packs/Day Years [...] you attend pentecostal or Patient refused 2021 mandaeism services? Do [...] documented as of this encounter Care Teams Channel Marketing Specialist Relationship Specialty Start Date End Date Elsewhere, Pcp PCP - General Family Medicine 12/25/21 documented as of this encounter
--- OUTSIDE RECORDS SUMMARY | 2022-08-01 06:41 | XMS_ITS | Encounter Summary ---
:1965 Author Organization [facility] Address [address] [place] [address] Care Team Providers Name Role Phone Elsewhere, Pcp Primary Care Provider Unavailable Reason for Referral Outpatient (Routine) - Closed Specialty Diagnoses / Procedures Referred By Contact Refer red To Contact Diagnoses Arthroplasty Total Shoulder Replacement Status Post Left Alfredo Herrera O.P.A.-[facility] Procedures DX Shoulder Left Ingrowth Series 5 Views [address] [place] [phone] Referral ID Status Reason Start Date Expiration Date Visits Requ ested Visits Authorized [id number] Closed 02/25/2022 02/25/2023 1 1 Reason for Visit Outpatient (Routine) - Closed Specialty Diagnoses / Procedures Referred By Contact Refer red To Contact Diagnoses Arthroplasty Total Shoulder Replacement Status Post Left Alfredo Herrera O.P.A.-[facility]. [facility] Procedures DX Shoulder Left Ingrowth Series 5 Views [address] [place] [phone] Referral ID Status Reason Start Date Expiration Date Visits Requ ested Visits Authorized [id number] Closed 02/25/2022 02/25/2023 1 1 Encounter Details Date Type Department Care Team Description 04/02/2022 Hospital Encounter Department of Alfredo Herrera Total Radiology, Anh Gonzales Shoulder Replacement [facility], in [address] [place] [address] Status Post Left [facility] [address] [place], [place] (Work) [address] [phone] Social History Tobacco Use Types Packs/Day Years [...] you attend synagogue or Patient refused 2021 christian services? Do [...] THC multivit-min/iron/folic/ Take 1 tablet by 0 [id number] (HAIR, SKIN AND mouth daily. NAILS ADVANCED [...] documented as of this encounter Care Teams Residential Door Installer Relationship Specialty Start Date End Date Elsewhere, Pcp PCP - General Family Medicine 12/25/21 documented as of this encounter
--- OUTSIDE RECORDS SUMMARY | 2022-08-01 06:41 | XMS_ITS | Encounter Summary ---
:1965 Author Organization [facility] Address [address] [place] [address] Care Team Providers Name Role Phone Elsewhere, Pcp Primary Care Provider Unavailable Encounter Details Date Type Department Care Team Description 03/19/2022 Clinical Communication Department of Cyrus Polk Orthopedic Surgery in Lilian Souza [place], [place] [address] [place] [address] 200 [place] [phone] [phone] Social History Tobacco Use Types Packs/Day Years [...] you attend gnosticism or Patient refused 2021 holiness services? Do [...] Have discussed this situation with the O.R. painting supervisor, the A.M. admission Soap Press Feeder, and the Outpatient Soap Press Feeder and no one can locate this remote [...] Please return a call to her at [phone] documented in this encounter Plan of Treatment Not on filedocumented as of this encounter Visit Diagnoses Not on filedocumented in this encounter Additional Health Concerns Assessment Noted Time PHQ-9 Depression Total Score: 16 02/11/2021 12:00 AM C DT documented as of this encounter Care Teams Chemical Processing Equipment Repairer Relationship Specialty Start Date End Date Elsewhere, Pcp PCP - General Family Medicine 12/25/21 documented as of this encounter
--- OUTSIDE RECORDS SUMMARY | 2022-08-01 06:41 | XMS_ITS | Encounter Summary ---
:1965 Author Organization [facility] Address [address] [place] [address] Care Team Providers Name Role Phone Elsewhere, Pcp Primary Care Provider Unavailable Reason for Visit Reason Comments Medication Problem Encounter Details Date Type Department Care Team Description 03/01/2022 Clinical Communication Department of Jose Polk Orthopedic Surgery Cyrus Souza M.D. in [place], [facility] [place], [place] [address] [place] [address] [place], [place] [phone] [phone] (Work) [phone] Social History Tobacco Use Types Packs/Day Years [...] you attend episcopal or Patient refused 2021 roman catholic services? [...] 12:04 PM CDT PIPER. Received fax from [employer] 03-03-22 indicating the doxycycline [facility] 100 mg tab is approved through 11/27/2022. Telephone Encounter - Cyrus Polk M.D. - 03/02/2022 7:45 AM CDT Please see below Thank you Telephone Encounter - Radha Suh - 03/01/2022 3:36 PM CDT Regina, pharmacist working for the insurance company calls regarding the doxycycline hyclate (DORYX) 100 mg EC tablet [[id number]] Script. This is not in their formulary. She has several questions to ask to consider approving this. Please call Regina back [phone], ext [phone] Reference # [id number] documented in this encounter Plan of Treatment Not on filedocumented as of this encounter Visit Diagnoses Not on filedocumented in this encounter Additional Health Concerns Assessment Noted Time PHQ-9 Depression Total Score: 16 02/11/2021 12:00 AM C DT documented as of this encounter Care Teams Silk Screen Repairer Relationship Specialty Start Date End Date Elsewhere, Pcp PCP - General Family Medicine 12/25/21 documented as of this encounter
--- OUTSIDE RECORDS SUMMARY | 2022-08-01 06:41 | XMS_ITS | Encounter Summary ---
:1965 Author Organization [facility] Address [address] [place] [address] Care Team Providers Name Role Phone Elsewhere, Pcp Primary Care Provider Unavailable Reason for Referral Medication Prior Authorization - Denied Specialty Diagnoses / Procedures Referred By Contact Refer red To Contact Michael Chino M.D. Referral ID Status Reason Start Date Expiration Date Visits Requ ested Visits Authorized [id number] Denied 1 1 Encounter Details Date Type Department Care Team Description 02/26/2022 - Hospital Encounter [facility] Jam, Shoulder Joint Disorder Left; 02/27/2022 Hospital, [facility] Cyrus Souza M.D. Pain Shoulder Left [facility] [address] [facility] [place], [place] Floor [address] [address] [facility] [phone] [place], [place] (Work) [phone] Social History Tobacco Use [...] you attend quaker or Patient refused 2021 muslim services? Do you belong to any clubs or No 05/17/2022 organizations such as quaker groups, Gourmants, [employer] or athletic groups, or school groups? How [...] THC multivit-min/iron/folic/ Take 1 tablet by 0 [id number] (HAIR, SKIN AND mouth daily. NAILS ADVANCED [...] needed for shortness of breath or wheezing. polyethylene glycol Take 17 g by mouth [...] mouth 0 06/17/2022 mg tablet at bedtime. doxycycline hyclate Take 1 tablet (100 mg 28 tablet 0 02/2603/12/2022 (DORYX) 100 mg EC tablet total) by mouth 2 (two) times a day for 14 days. ondansetron ODT Take 1 tablet by 0 [...] - 02/27/2022 8:05 AM CDT Orthopedic Service: [facility] Admission Day: 02/26/2022 SUBJECTIVE POD1. She [...] until 6 pm, please page the [facility] pager at [phone] For urgent matters from 6 pm until 6 am, please page Ortho House at [phone] Michael Chino M.D. - 02/26/2022 3:03 PM CDT [facility]: [facility] Admission Day: 02/26/2022 SUBJECTIVE Patient seen [...] am until 6 pm, please page the [facility] pager at [phone] For urgent matters from 6 pm until 6 am, please page Ortho House at [phone] Clemente Buck, Pharm.D., R.Ph. - 02/26/2022 9:17 [...] Take 150 mg by mouth every morning. wyojmmuzjp-cytueenzzxhad-eigr (ESGIC) 50-325-40 mg per tablet Past Week [...] 1 spray as needed. 5 mg THC multivit-min/iron/folic/hbd098 (HAIR, SKIN AND NAILS ADVANCED ORAL) 02/25/2022 [...] (HCC) ??? Nicotine Dependence Unspecified ??? Other Electrical Design Engineer Current Drug Therapy ??? Direct Infection Of [...] Right Lives With: Alone Receives Help From: club lounge attendant, Family, Friend(s) ADL Assistance: Required assistance ADL Assistance Comments: Gets help from SCRAP YARD WORKER for her bath/shower and for her meals IADL/Homemaking Assistance: Required assistance IADL/Homemaking Assistance Comments: Gets help for housecleaning Driving: Independent Driving Comments: takes her cane and medical alert with her. Occupational Role: On disability Occupational Role Comments: Previously worked at a [email or web address] and [employer] Prior Mobility/Functional Transfers Level of [place]: Modified independent Previous Transfer/Mobility Assistance Comments: Patient [...] mask during therapy session: yes Outcome Measures [facility] Inpatient Short Form: [facility] Basic Mobility (V.2) How much [...] AM-PAC Basic Mobility (V.2) Raw Score: 24 AM-PAC Basic Mobility (V.2) Standardized Score: 57.68 Interpretation: Clinicians answer the [facility] Inpatient Short Form based on [...] Prescriptions were sent and filled at the [facility] pharmacy. Catalina Mccloud R.N. - [...] elsewhere status post placement antibiotic spacer. A travel assistant was necessary for one or more the [...] be placed with approximately 70% contact with yavapai-apache bone. The more superior aspect of the glenoid was bone grafted with bone graft from the bone bank. There was excellent fixation of the base plate with the trial components, excellent stability and range of motion. Real glenosphere placed. Real stem packed in place with an excellent tight fit with the trial tr jacquelyn excellent stability and range of motion. Real [...] of antibiotic spacer, implantation of reverse arthroplasty, [id number] Cyrus Polk M.D. CT CT Job ID: [id number] documented in this encounter Plan of Treatment [...] M.D. LAB BLOOD ADD-ON Performing Organization Address City/State/[facility] Code Phon e Number [facility] - [address] [place], [place] [address] [facility] [place] [address] [facility] 200 [facility] (ABNORMAL) Basic Metabolic Panel (02/26/2022 [...] DTL Nitrogen), S mg/dL 6:27 PM CDT Creatinine 0.79 0.59 - 02/26/2022 DTL 1.04 mg/dL 6:27 PM CDT eGFR-Non 83 >=60 02/26/2022 DTL Black/ mL/min/BSA 6:27 PM CDT Kosovan Comment: ----ADDITIONAL INFORMATION---- Estimated GFR calculated using [...] Number [facility] - [address] [place], [place] [address] [facility] [place] [address] [facility] 200 [facility] (ABNORMAL) CBC with Differential, Blood (02/26/2022 3:47 PM CDT) [facility] Method Time Signature Hemoglobin 8.8 (L) 11.6 [...] e Number [facility] - [address] [place] [address] [facility] [place] [address] [facility] 200 [facility] DX Shoulder Left 1 View [...] Aerobe / Anaerobe+Susc (02/26/2022 1:00 PM CDT) [facility] Method Time Signature Bacteria Cult, No growth 03/12/2022 DTL Aerobe/Anaerob after 14 2:02 PM CDT e+Susc days of incubation. Specimen Anatomical Collection Method Collection Time Receive d Time (Source) Location / / Volume Laterality Shoulder, Left 02/26/2022 1:00 PM 022 1:41 CDT PM CDT Comment: Specimen Source Site: Tissue 1 Narrative [facility] - 03/12/2022 2:02 PM CDT Bacterial Culture: Placed in Bactec aero bic and Bactec anaerobic bottles Cyrus Polk M.D. LAB MICROBIOLOGY - GENERAL O MARY Performing Organization Address City/[facility] Phon e Number [facility] - [address] Bacteria Cult, Aerobe / Anaerobe+Susc (02/26/2022 1:00 PM CDT) [facility] Method [place] Signature Bacteria Cult, No growth 03/12/2022 DTL Aerobe/Anaerob after 14 2:02 PM CDT e+Susc days of incubation. Specimen Anatomical Collection Method Collection Time Receive d Time (Source) Location / / Volume Laterality Shoulder, Left 02/26/2022 1:00 PM 022 1:38 CDT PM CDT Comment: Specimen Source Site: Tissue 3 Narrative [facility] - 03/12/2022 2:02 PM CDT Bacterial Culture: Placed in Bactec aero bic and Bactec anaerobic bottles Cyrus Polk M.D. LAB MICROBIOLOGY - GENERAL O MARY Performing Organization Address City/[facility] Phon e Number [facility] - [address] [place], [place] [address] [facility] [place], [place] [id number] [place] [address] Bacteria Cult, Aerobe / Anaerobe+Susc (02/26/2022 1:00 PM CDT) Patholo gist Method Time Signature Bacteria Cult, No growth 03/12/2022 DTL Aerobe/Anaerob after 14 2:02 PM CDT e+Susc days of incubation. Specimen Anatomical Collection Method Collection Time Receive d Time (Source) Location / / Volume Laterality Shoulder, Left 02/26/2022 1:00 PM 022 1:36 CDT PM CDT Comment: Specimen Source Site: Tissue 2 Narrative [facility] - [facility] - 03/12/2022 2:02 PM CDT Bacterial Culture: Placed in Bactec aero bic and Bactec anaerobic bottles Cyrus Polk M.D. LAB MICROBIOLOGY - GENERAL O RDERABLES Performing Organization Address City/State/ZIP Code Phon e Number [facility] - [address] [place] [address] [facility] [place] [address] [facility] 200 [facility] Surgical Pathology, Frozen Lab (02/26/2022 1:00 PM CDT) Component Value Ref Test Analysis Performed Pathologis t Range Method Time At [facility] 03/01/2022 METH 3:43 PM CDT Participated in Guerda Camacho 03/01/2022 METH the Lilian Vasquez 3:43 PM CDT Interpretation -Pathology Resident Report [...] permanent sections. ??Grossed by Nan Ledezma M.S., PA([facility] Block Summary A Left shoulder 03/01/2022 METH [...] LAB SURG PATH ORDERABLES Performing Organization Address City/State/[facility] Code Phon e Number [facility] - [address] [place], [place] [address] [facility] [place] [address] [facility] [address] documented in this encounter [...] 80 mg, oral, Daily, First dose on Tue02/27/22 at 0900, FLUoxetine orderable was interchanged for [...] mg (TYLENOL) 1714 (Given - Provider: Tanesha Butt)223 (Given - Provider: Tanesha Butt) 043 (Given - Provider: Lauren Mckeon R.N.)1104 (Given [...] 438 (New Bag - Provider: Lauren rosa RBetsy) [...] surgical diphenhydrAMINE capsule 25 mg (BENADRYL) (CANCELED) 1830 (Given - Provider: Tanesha Butt) 0011 (Not Given - Provider: Lauren garcia RBrittonNBritton [...] Tanesha Butt) 0825 (Given - Provider: Catalina Naik ltjuan david R.N.) 200 mg, oral, 2 times daily, [...] Butt) 0610 (Given - Provider: Lauren Mckeon RBrittonNBritton) 40 mg, oral, 2 times daily before breakf ast and dinner, First dose on Tue02/26/22 at 1600, pantoprazole 40 mg oral twice daily was interchanged for esomeprazole 20 or 40 mg oral twice daily Swallow whole. Do NOT crush, chew, or split tablet. pregabalin capsule 600 mg (LYRICA) 2040 (Given - Provider: Tanesha Btut) 0825 (Given - Provider: Catalina Mccloud R.N.) [...] 0825 (Given - Provider: Catalina Mccloud RBrittonNBritton) 1 tablet, oral, 2 times daily, First dos e on Tue02/26/22 at 2100, Do not give if patient has diarrhea. tranexamic acid in NaCl IVPB 1,000 mg (CYKLOKAPRON) (COMPLET ED) 1230 (Given - Provider: Tejal Gonzalez RBrittonNBritton) 1,000 mg (1 g), intravenous, at 300 [...] Mercado RBrittonNBritton)1212 (Stopped - Provider: Tejal Gonzalez R.N.) 20 mL/hr, intravenous, Continuous, Starting on Tue02/26/22 at 104 5, Pre-Op lactated ringers 1437 (Continued from OR - Provi marquis: Guillermina Oneill R.N.) 20 mL/hr, intravenous, Continuous, Start ing [...] (TUMS) 1007 (Given - Provider: Catalina Mccloud R.N.) 400 mg of calcium, oral, Every 2 hour [place] N, indigestion, Starting on Tue02/26/22 at 1451, [...] (COMPLETED) 1504 (Given - Provider: Guillermina Oneill R.N.) 10 mg, oral, Once as needed, For pain 4 or greater, Starting on Tue02/26/22 at 1436, For 1 dose, PACU (only) oxyCODONE IR tablet 10 mg (ROXICODONE) (COMPLETED) 1203 (Given - Provider: Donna Mercado R.N.) 10 mg, oral, Once as needed, moderate pa in or score 4-6 of 10, severe pain or score 7-10 of 10, Starting on Tue02/26/22 at 1154, For 1 dose, Pre-Op oxyCODONE IR tablet 10 mg (ROXICODONE) (CANCELED) 1829 (Given - Provider: Tanesha Butt) 0130 (Given - Provider: Denise Novak R.N., ONC)0433 (Given - Provider: Lauren Mckeon R.N.)0743 (Given - Provider: Catalina Mccloud R.N.) 10 mg, [...] documented as of this encounter Care Teams Porcelain Finisher Relationship Specialty Start Date End Date Elsewhere, Pcp PCP - General Family Medicine 12/25/21 documented as of this encounter
--- OUTSIDE RECORDS SUMMARY | 2022-08-01 06:41 | XMS_ITS | Encounter Summary ---
:1965 Author Organization [facility] Address [address] [place] [address] Care Team Providers Name Role Phone Elsewhere, Pcp Primary Care Provider Unavailable Encounter Details Date Type Department Care Team Description 02/26/2022 Clinical Communication [facility] Main Phar Janet Sarmiento, [address] [facility].Ph.T. [place], [place] [phone] [address] (Work) [phone] Social History Tobacco Use Types Packs/Day Years [...] attend latter day or Patient refused 2021 worship services? Do [...] documented as of this encounter Care Teams Natural Gas Treating Unit Operator Relationship Specialty Start Date End Date Elsewhere, Pcp PCP - General Family Medicine 12/25/21 documented as of this encounter
--- OUTSIDE RECORDS SUMMARY | 2022-08-01 06:41 | XMS_ITS | Encounter Summary ---
:1965 Author Organization [facility] Address [address] [place] [address] Care Team Providers Name Role Phone Elsewhere, Pcp Primary Care Provider Unavailable Encounter Details Date Type Department Care Team Description 03/02/2022 Orders Only Pharmacy Prior Auth Brooklyn Frias [phone] Social History Tobacco Use Types Packs/Day Years [...] you attend latter-day or Patient refused 2021 evangelical services? Do [...] documented as of this encounter Care Teams Cashier Assistant Relationship Specialty Start Date End Date Elsewhere, Pcp PCP - General Family Medicine 12/25/21 documented as of this encounter
--- OUTSIDE RECORDS SUMMARY | 2022-08-01 06:41 | XMS_ITS | Encounter Summary ---
:1965 Author Organization [facility] Address [address] [place] [address] Care Team Providers Name Role Phone Elsewhere, Pcp Primary Care Provider Unavailable Reason for Referral Outpatient (Routine) - Closed Specialty Diagnoses / Procedures Referred By Contact Refer red To Contact Diagnoses Painful Total Joint Arthroplasty Initial (HCC) Alfredo Herrera [place] Procedures ORS US-Guided aspiration/injection [facility].P.A[facility]. [address] [place] [address] Referral ID Status Reason Start Date Expiration Date Visits Requ ested Visits Authorized [id number] Closed 04/02/2022 04/02/2023 1 1 MRI/CAT/PET Scan (Routine) - Closed Specialty Diagnoses / Procedures Referred By Contact Refer red To Contact Radiology Diagnoses Painful Total Joint Arthroplasty Initial ([facility]) Alfredo Herrera [place] Procedures CT Shoulder Left without IV Contrast [facility]. [address] [place] [address] Referral ID Status Reason Start Date Expiration Date Visits Requ ested Visits Authorized [id number] Closed 04/02/2022 04/02/2023 1 1 Reason for Visit Outpatient (Routine) - Closed Specialty Diagnoses / Procedures Referred By Contact Refer red To Contact Orthopedic Surgery Diagnoses Arthroplasty Total Shoulder Replacement Status Post Left Alfredo Herrera [place] [facility] [address] [place] [address] Referral ID Status Reason Start Date Expiration Date Visits Requ ested Visits Authorized [id number] Closed 02/25/2022 02/25/2023 1 1 Encounter Details Date Type Department Care Team Description 04/02/2022 Office Visit Department of Cyrus Polk Arthroplasty Total Shoulder Replacement Status Post Left; Orthopedic Surgery in [place] Souza Painful Total Joint Arthroplasty Initial (HCC) [place], [place] [address] [facility] [address] [place] [phone] Social History Tobacco Use Types Packs/Day Years [...] you attend taoism or Patient refused 2021 rastafari services? Do [...] Cyrus Polk M.D. CT CT Job ID: [id number] documented in this encounter Plan of Treatment [...] Address City/State/ZIP Code Phon e Number [facility] - [address] [place] [address] [facility] [place] [address] [facility] 200 [facility] (ABNORMAL) CBC without Differential (04/14/2022 10:42 [...] Address City/State/ZIP Code Phon e Number [facility] - [address] [place], [place] [address] [facility] [place] [address] [facility] [address] [place] ARTHCS ASP/INJ MJR JT W US (04/14/2022 [...] as of this encounter Care Teams Manager Wound Relationship Specialty Start Date End Date Elsewhere, Pcp PCP - General Family Medicine 12/25/21 documented as of this encounter
--- OUTSIDE RECORDS SUMMARY | 2022-08-01 06:41 | XMS_ITS | Encounter Summary ---
:1965 Author Organization [facility] Address [address] [place] [address] Care Team Providers Name Role Phone Elsewhere, Pcp Primary Care Provider Unavailable Encounter Details Date Type Department Care Team Description 03/08/2022 Orders Only Department of Orthopedic Melissa Mcdonald M.D. Surgery in [place], [place] [address] [place] [address] Social History Tobacco Use [...] you attend nondenominational or Patient refused 2021 presybeterian services? Do [...] documented as of this encounter Care Teams Sailmaker Relationship Specialty Start Date End Date Elsewhere, Pcp PCP - General Family Medicine 12/25/21 documented as of this encounter
--- OUTSIDE RECORDS SUMMARY | 2022-08-01 06:41 | XMS_ITS | Encounter Summary ---
:1965 Author Organization [facility] Address [address] [place] [address] Care Team Providers Name Role Phone Elsewhere, Pcp Primary Care Provider Unavailable Encounter Details Date Type Department Care Team Description 03/16/2022 Clinical Communication Department of Cryus Polk Orthopedic Surgery in Lilian Souza [place], [place] [address] [place] [address] 200 [place] [phone] [phone] Social History Tobacco Use Types Packs/Day Years [...] you attend mandaeism or Patient refused 2021 synagogue services? Do [...] 03/16/2022 12:15 PM CDT Michael, patient's case aide from [facility], is calling hoping to speak to someone on Dr. Polk's surgical team to ensure that the patient is receiving the correct post-op care. Patient is set up for post op appointments at the beginning of March here. However, Michael is looking to speak to someone over the phone to ensure the patient is on the right track. Please call [phone]. Thank you. documented in this encounter Plan of Treatment Not on filedocumented as of this encounter Visit Diagnoses Not on filedocumented in this encounter Additional Health Concerns Assessment Noted Time PHQ-9 Depression Total Score: 16 02/11/2021 12:00 AM C DT documented as of this encounter Care Teams Biofuels Production Associate Relationship Specialty Start Date End Date Elsewhere, Pcp PCP - General Family Medicine 12/25/21 documented as of this encounter
--- OUTSIDE RECORDS SUMMARY | 2022-08-01 06:41 | XMS_ITS | Encounter Summary ---
:1965 Author Organization [facility] Address [address] [place] [address] Care Team Providers Name Role Phone Elsewhere, Pcp Primary Care Provider Unavailable Reason for Visit Outpatient (Routine) - Closed Specialty Diagnoses / Procedures Referred By Contact Refer red To Contact Diagnoses Painful Total Joint Arthroplasty Initial ([facility]) Alfredo Herrera [place] Procedures ORS US-Guided aspiration/injection [facility]. [address] [place] [phone] Referral ID Status Reason Start Date Expiration Date Visits Requ ested Visits Authorized [id number] Closed 04/02/2022 04/02/2023 1 1 Encounter Details Date Type Department Care Team Description 04/14/2022 Procedure visit Department of Jey Monzon To beto Joint Orthopedic Surgery in Lilian Celaya Arthroplasty Initial [place], [place] [address] [place] [address] ([facility]) [address] [place] [phone] Social History Tobacco Use Types Packs/Day Years [...] attend latter day or Patient refused 2021 faith services? Do you belong to any clubs or No 05/17/2022 organizations such as latter day groups, unions, fraNotifo or athletic groups, or school groups? How [...] was performed by Carmelo Guo M.D., M.S. ([phone]). HISTORY: The patient was recently evaluated for [...] and sterile ultrasound gel were used. Machine: Bahoui Transducer: 6-15 MHz linear transducer. Patient position: [...] Mosquera Barriers to learning: None Preferred language: Czech Learning preferences include: Seeing and doing. Discussed: [...] preparation: chlorhexidine/alcohol Images have been archived in Onsite Care: click the 'Dept Filter' button in Onsite Care, then the 'Clear (ShowAll)' button, then OK. [...] procedure a re in the results section. AR ARTHCS ASP/INJ Routine 04/14/2022 9:30 AM Painful Total Aliza nt Results for this MJR JT W US CDT Arthroplasty Initial procedu re are in (HCC) the results section. documented in this encounter Results Bacteria Cult, Aerobe / Anaerobe+Susc (04/14/2022 9:35 AM CDT) [facility] Method Time Signature Bacteria Cult, No growth 04/28/2022 DTL Aerobe/Anaerob after 14 11:02 AM CDT e+Susc days of incubation. Specimen Anatomical Collection Method Collection Time Receive d Time (Source) Location / / Volume Laterality Synovial Fluid, 04/14/2022 9:35 AM 2021 Left Shoulder CDT 10:18 AM CDT Comment: Specimen Source Site: Aspirate Narrative [facility] - 04/28/2022 11:02 AM CDT Bacterial Culture: Received Bactec aerob ic and Bactec anaerobic bottles Alfredo Kamara LAB MICROBIOLOGY - GENERAL O RDERABLES Performing Organization Address City/State/ZIP Code Phon e Number [facility] - [address] [place] [address] [facility] [place] [place] [address] Formerly [facility] 200 [facility] Cell Count and Differential, Body Fluid (04/14/2022 9:35 AM CDT) [facility] Method Time Signature Fluid Type Right 04/14/2022 [...] characteri stics were determined by [facility] in a manner co nsistent with [...] City/State/ZIP Code Phon e Number [facility] - [address] [place], [place] [address] [place] [address] Laboratories-[facility] [address] [place] ARTHCS ASP/INJ MJR JT W US (04/14/2022 [...] documented as of this encounter Care Teams Csr Technician Relationship Specialty Start Date End Date Elsewhere, Pcp PCP - General Family Medicine 12/25/21 documented as of this encounter
--- OUTSIDE RECORDS SUMMARY | 2022-08-01 06:41 | XMS_ITS | Encounter Summary ---
:1965 Author Organization [facility] Address [address] [place] [address] Care Team Providers Name Role Phone Elsewhere, Pcp Primary Care Provider Unavailable Encounter Details Date Type Department Care Team Description 03/11/2022 Documentation Department of Orthopedic Melissa Mcdonald M.D. Surgery in [place], [place] [address] [place] [phone] Social History Tobacco Use [...] you attend alevism or Patient refused 2021 lutheran services? Do [...] Mr. Mosquera if he could come to [place] to rock picker a new sling tomorrow and he [...] documented as of this encounter Care Teams Bookie Relationship Specialty Start Date End Date Elsewhere, Pcp PCP - General Family Medicine 12/25/21 documented as of this encounter
--- OUTSIDE RECORDS SUMMARY | 2022-08-01 06:41 | XMS_ITS | Encounter Summary ---
:1965 Author Organization [facility] Address [address] [place] [address] Care Team Providers Name Role Phone Elsewhere, Pcp Primary Care Provider Unavailable Reason for Visit Reason Comments Communication Encounter Details Date Type Department Care Team Description 03/11/2022 Clinical Communication Department of Cyrus Polk mmunication Orthopedic Surgery in Lilian Souza [place], [place] [address] [place] [address] 200 [place] [phone] Social History Tobacco Use Types Packs/Day Years [...] you attend advent or Patient refused 2021 christianity services? Do [...] and cannot afford any to drive to [place] and moss picker [place] sl[place]. Telephone Encounter - Radha [...] documented as of this encounter Care Teams Tub Rider Relationship Specialty Start Date End Date Elsewhere, Pcp PCP - General Family Medicine 12/25/21 documented as of this encounter
--- OUTSIDE RECORDS SUMMARY | 2022-08-01 06:42 | XMS_ITS | Encounter Summary ---
:1965 Author Organization [facility] Address [address] [place] [address] Care Team Providers Name Role Phone Elsewhere, Pcp Primary Care Provider Unavailable Reason for Visit Reason Comments OPAT Normal Labs Encounter Details Date Type Department Care Team Description 01/15/2022 Clinical Communication Section of Madhav Rizo (Normal Labs) Infectious Diseases M, M.P.H., in [address] 200 [place] [phone] Social History Tobacco Use Types Packs/Day Years [...] you attend congregation or Patient refused 2021 amish services? Do [...] Rizo M.P.H., R.N. - 01/15/2022 3:24 PM SYSTEM TECHNOLOGIST OPAT NOTE Infusion Provider: Dennis TA [facility], phone: [phone], fax: [phone] Labs and site care at [facility], phone: [phone] Antimicrobial(s) currently prescribed: See Med List Hyperlink in note Firm stop date: 02/11/22 Lab results from 01/14/2022 are viewable in the MCR record--listed as External Labs (received via fax, which has been uploaded to Document Viewer/Media) Interpretation and action: The labs were satisfactory and acceptable. No change in plan as per OPAT Practice Guideline. EM TECHNOLOGIST documented in this encounter Plan of [...] Signature EXT ALT 14 4 - 35 [facility] Specimen (Source) Anatomical Location Collection Method / Collectio n Time Received Time / Laterality Volume Blood (Blood, Venous) Laly Ward APRN RBrittonN. LAB BLOOD ADD-ON Performing Organization Address City/[facility]/ZIP Code Phon e Number [facility] [address] [place] [address] Creatinine with Estimated GFR (01/14/2022) athologist Signature EXT Creatinine 0.6 0.5 - 1.5 [place] mg/dL [facility] Specimen (Source) Anatomical Location Collection Method / Collectio n Time Received Time / Laterality Volume Blood (Blood, Venous) Laly Wadr APRN R.N. LAB BLOOD ADD-ON Performing Organization Address City/[facility]/ZIP Code Phon e Number [facility] [address] [place] [address] (ABNORMAL) CBC with Differential, Blood (01/14/2022) athologist Signature EXT Platelet 406 150 - 450 [place] Count [facility] EXT Hemoglobin 9 (A) 12 - 15.5 [facility] EXT Absolute 3.49 1.7 - 7 [place] Neutrophils [facility] EXT White Blood 5.7 5.0 - 10.0 [place] Cell (WBC) Count [facility] Specimen (Source) Anatomical Location Collection Method / Collectio n Time Received Time / Laterality Volume Blood (Blood, Venous) Narrative This result has an attachment that is no t available. Laly Ward APRN R.N. LAB BLOOD ADD-ON Performing Organization Address City/[facility]/ZIP Code Phon e Number [facility] [address] [place] [address] documented in this encounter Visit Diagnoses Not on filedocumented in this encounter Additional Health Concerns Assessment Noted Time PHQ-9 Depression Total Score: 16 02/11/2021 12:00 AM C DT documented as of this encounter Care Teams Trench Shovel Operator Relationship Specialty Start Date End Date Elsewhere, Pcp PCP - General Family Medicine 12/25/21 documented as of this encounter
--- OUTSIDE RECORDS SUMMARY | 2022-08-01 06:42 | XMS_ITS | Encounter Summary ---
:1965 Author Organization [facility] Address [address] [place] [address] Care Team Providers Name Role Phone Elsewhere, Pcp Primary Care Provider Unavailable Reason for Visit Reason Comments OPAT Normal labs Encounter Details Date Type Department Care Team Description 02/09/2022 Clinical Communication Section of Ruth Eddy (Normal labs) Infectious T, R.N. Diseases in [address] [place] [phone] [place] [address] [place], [place] (Work) [phone] Social History Tobacco Use Types Packs/Day Years [...] you attend episcopalian or Patient refused 2021 oriental orthodox services? [...] Provider: Dennis TA [facility], phone: [phone], fax: [phone] Labs and site care at [facility], phone: [phone] Antimicrobial(s) currently prescribed: See Med List Hyperlink [...] documented as of this encounter Care Teams Nurse Practitioner Per Diem Relationship Specialty Start Date End Date Elsewhere, Pcp PCP - General Family Medicine 12/25/21 documented as of this encounter
--- OUTSIDE RECORDS SUMMARY | 2022-08-01 06:42 | XMS_ITS | Encounter Summary ---
:1965 Author Organization [facility] Address [address] [place] [address] Care Team Providers Name Role Phone Elsewhere, [...] you attend jewish or Patient refused 2021 roman catholic services? [...] documented as of this encounter Care Teams Hogshead Hooper Relationship Specialty Start Date End Date Elsewhere, Pcp PCP - General Family Medicine 12/25/21 documented as of this encounter
--- OUTSIDE RECORDS SUMMARY | 2022-08-01 06:42 | XMS_ITS | Encounter Summary ---
:1965 Author Organization [facility] Address [address] [place] [address] Care Team Providers Name Role Phone Elsewhere, Pcp Primary Care Provider Unavailable Reason for Visit Reason Comments OPAT Care Coordination Encounter Details Date Type Department Care Team Description 01/22/2022 Clinical Communication Section of Steven Dennis (Care Infectious Diseases E, R.N. Coordination) in [address] [place] [phone] [place], [place] [phone] (Work) [phone] Social History Tobacco Use Types Packs/Day Years [...] you attend orthodox or Patient refused 2021 mosque services? Do [...] or the highest technical, or vocational p anrcisaram degree you have received? Sex Assigned at Date Recorded Female 03/01/2019 10:12 AM CDT documented as of this encounter Miscellaneous Notes Telephone Encounter - Steven Dennis RBrittonNBritton - 01/25/2022 9:11 AM CST Per Shae Torres PA-C, In that case, she might need a PICC placed in the chest. These need to be placed by IR. ??Is she able to come to [place] for IR PICC placement? ??If not, we'll [...] I spoke to Carolynn, the nurse at [facility]. She spoke to their wound care nurse and she would liketo try some different dressings first before they move the PICC to the chest. They cannot place a PICC in the chest in [place], so if needed, the patient would have to come to [place]. The patientwill be there at 2 pm today. She will call back with the patient so we all can come up with a plan together. Addendum: We missed a call from Carolynn, infusion nurse at [facility]. Her message stated that PICCsite care was performed and the site looks better. The wound care team has a plan and is hoping thatblessinge can keep her current PICC. ME TAX AUDITOR Telephone Encounter - Tejal Rudolph R.N. - 01/22/2022 4:46 PM INCOME TAX AUDITOR I have been unable to reach the patient, but I notified nurse Carolynn at [facility][1] of Dr. Boris Chaidez's recommendation, that they could try moving the line to the other arm and use a midline but avoid a chest PICC. I faxed the order for midline placement. Nurse Carolynn at [place] questioned whether the midline could be moved to the other (left) arm, because patient wears a sling on that arm. ME TAX AUDITOR Telephone Encounter - Steven Dennis R.N. - [...] She did get a special dressing from [facility] to use, but it doesn't seem to be helping. Dressing was changed at [facility] today and they applied some guaze to help with the drainage. 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
--- OUTSIDE RECORDS SUMMARY | 2022-08-01 06:42 | XMS_ITS | Encounter Summary ---
:1965 Author Organization [facility] Address [address] [place] [address] Care Team Providers Name Role Phone Elsewhere, Pcp Primary Care Provider Unavailable Reason for Visit Outpatient (Routine) - Closed Specialty Diagnoses / Procedures Referred By Contact Refer red To Contact Infectious Diseases Diagnoses Aftercare Total Shoulder Arthroplasty [facility] [address] [place] [phone] Referral ID Status Reason Start Date Expiration Date Visits Requ ested Visits Authorized [id number] Closed 01/01/2022 01/01/2023 1 1 Encounter Details Date Type Department Care Team Description 02/25/2022 Comprehensive Visit Section of Christiano Nixon M.D. [address] [place] [phone] [place] Antibiotic Treatment (Primary Dx); Infectious Diseases Russell Santos M.D. [address] [place] [phone] Infection Shoulder Prosthesis Subsequent ; in [place], Direct Infecti on Of Left Shoulder In Infectious And Parasitic Diseases Classified Elsewhere ([facility]); [place] Aftercare Total Shoulder Art hroplasty [address] [place] [phone] Social History Tobacco Use Types Packs/Day [...] you attend caodaism or Patient refused 2021 christian services? Do [...] 56 y.o. Birthdate: 1965 Sex: female Address: [address] [place] [phone] Referring Provider: Jose Guadalupe Nixon M.D. REASON [...] resistance on OSH AST. She presented to [facility] (unclear if on antibiotics) for further evaluation given persistent L shoulder pain 08/2021 prompting aspiration (09/25/21) which revealed elevated TNC (69471) with 81% PMNs with cultures positive for [...] thorough debridement.??The patient was subsequently admitted to [facility] for further management. Intraoperative cultures [...] is consistent with aspiration results from original [facility] evaluation which is likely wire rope sales representative of the culprit organism causing [...] of Infectious Diseases OPAT monitoring program at [phone] after dismissal. Primary service to follow labs while patient is hospitalized. [facility] pharmacist to adjust dosing after dismissal 4. [...] 150 mg by mouth every morning. ??? isucfauwif-xfdbtmwoetgov-cnph (ESGIC) 50-325-40 mg per tablet Take 1 [...] 11 mo ago Resulting Agency CULTURE RESULT??Abnormal?? [facility] CULTURE 1+ Staphylococcus coagulase negative [facility] GRAM STAIN ? 1+ PMNs [facility] GRAM STAIN ? No organisms seen [facility] GRAM STAIN ? [facility] [place] [facility] Susceptibility Organism Antibiotic Susceptibility Staphylococcus coagulase [...] DIAGNOSES #1 Infection Shoulder Prosthesis Subsequent #2 Jira Developer Antibiotic Treatment #3 Direct Infection Of Left Shoulder In Infectious And Parasitic Diseases Classified Elsewhere (HCC) #4 Aftercare Total Shoulder Arthroplasty ORDERS Orders Placed This Encounter Procedures ??? Hepatic Function Panel ??? Basic Metabolic Panel Spent 36 minutes in total time both pzrl-uk-iwfe and non zjtd-va-qgno to face documented in this encounter Plan [...] DTL Nitrogen), S mg/dL 11:19 AM CDT Creatinine 0.87 0.59 - 02/25/2022 DTL 1.04 mg/dL 11:19 AM CDT eGFR-Non 74 >=60 02/25/2022 DTL Black/ mL/min/BSA 11:19 AM CDT Ukrainian Comment: ----ADDITIONAL INFORMATION---- Estimated GFR calculated using [...] City/State/ZIP Code Phon e Number [facility] - [address] [place] [address] [facility] [place] [address] Laboratories-[facility] 200 [facility] Hepatic Function Panel (02/25/2022 10:09 AM CDT) [facility] gist Method Time Signature Bilirubin, Total, S [...] City/State/ZIP Code Phon e Number [facility] - [address] [place], [place] [address] [facility] [place] [address] [facility] [address] documented in this encounter Visit Diagnoses Diagnosis Jira Developer Antibiotic Treatment - Primary Infection Shoulder Prosthesis Subsequent Direct Infection Of Left Shoulder In Inf ectious And Parasitic Diseases Classified Elsewhere (HCC) Aftercare Total Shoulder Arthroplasty documented in this encounter Additional Health Concerns Assessment Noted Time PHQ-9 Depression Total Score: 16 02/11/2021 12:00 AM C DT documented as of this encounter Care Teams Spanish Interpreter Relationship Specialty Start Date End Date Elsewhere, Pcp PCP - General Family Medicine 12/25/21 documented as of this encounter
--- OUTSIDE RECORDS SUMMARY | 2022-08-01 06:42 | XMS_ITS | Encounter Summary ---
:1965 Author Organization [facility] Address [address] [place] [address] Care Team Providers Name Role Phone Elsewhere, Pcp Primary Care Provider Unavailable Encounter Details Date Type Department Care Team Description 01/01/2022 Clinical Communication [facility] Sapna Dodge C.Ph.T. 201 [facility] [phone] [place], [place] (Work) [phone] Social History Tobacco Use [...] you attend jain or Patient refused 2021 yarsanism services? Do [...] documented as of this encounter Care Teams Birthing Nurse Relationship Specialty Start Date End Date Elsewhere, Pcp PCP - General Family Medicine 12/25/21 documented as of this encounter
--- OUTSIDE RECORDS SUMMARY | 2022-08-01 06:42 | XMS_ITS | Encounter Summary ---
:1965 Author Organization [facility] Address [address] [place] [address] Care Team Providers Name Role Phone Elsewhere, Pcp Primary Care Provider Unavailable Reason for Visit Reason Comments OPAT Intervention Encounter Details Date Type Department Care Team Description 01/28/2022 Clinical Communication Section of Ruth Eddy (Intervention Infectious T, R.N. ) Diseases in [address] [place] [phone] [place] [address] [place], [place] (Work) [phone] Social History Tobacco Use Types Packs/Day Years [...] attend latter day or Patient refused 2021 mandaeism services? Do [...] are for now to obtain ALP trend. GER PACKAGING Telephone Encounter - Desirae Domingo R.N. - 02/01/2022 12:11 PM CST Maritza calls from [place] regarding Alk phos from 01/28. It is greater than 1.5 the upper limit of normal. GER PACKAGING Telephone Encounter - Su Greene, Pharm.D., R.Ph. - 01/29/2022 8:49 AM CST Reviewed WBC trend including WBC on 01/28, no changes at this time, see note from my colleague Jennifer Roca for details. GER PACKAGING Telephone Encounter - Ruth Eddy R.N. - 01/29/2022 8:14 AM CST OPAT NOTE ?? Infusion Provider: [facility] [address] [facility], phone: [phone], fax: [phone] Labs and site care at [facility] [place] [facility], phone: [phone] Antimicrobial(s) currently prescribed: See Med List Hyperlink in note Firm stop date: 02/11/22 ?? Lab results from are viewable in the MCR record--listed as External Labs (received via fax, which has been uploaded to Document Viewer/Media) ?? Interpretation and action: The labs were reviewed. WBC and ANC are improving. I will send this to the provider for review. GER PACKAGING Telephone Encounter - Jennifer Roca Pharm.D., R.Ph. - 01/28/2022 10:21 AM MANAGER PACKAGING Pertinent labs and antimicrobial regimen as indicated [...] time. For monitoring: continue weekly OPAT labs. GER PACKAGING Telephone Encounter - Ruth Eddy RBrittonN. - 01/28/2022 9:40 AM CST OPAT NOTE Infusion Provider: [facility] [address] [facility], phone: [phone], fax: [phone] Labs and site care at [facility] [place] [facility], phone: [phone] Antimicrobial(s) currently prescribed: See Med List Hyperlink in note Firm stop date: 02/11/22 Lab results from 01/21/2022 are viewable in the MCR record--listed as External Labs (received via fax, which has been uploaded to Document Viewer/Media) Interpretation and action: The labs were reviewed. WBC is 3.6 and ANC is 1.42. Alk Phos was not done. [facility]. Orders were sent to [facility] that included alk phos that will be drawn today, 01-28-2022. GER PACKAGING documented in this encounter Plan of Treatment Not on filedocumented as of this encounter Procedures Procedure Name Priority Date/Time Associated Comments Diagnosis CBC WITH DIFFERENTIAL, B Routine 01/28/2022 3:00 Results for this PM MANAGER PACKAGING procedure are i n the results section. ALANINE AMINOTRANSFERASE Routine 01/28/2022 3:00 Results for this (ALT), S/P PM MANAGER PACKAGING procedure are i n the results section. ALKALINE PHOSPHATASE, Routine 01/28/2022 3:00 Res ults for this S/P PM MANAGER PACKAGING procedure are i n the results section. CREATININE WITH EGFR, Routine 01/28/2022 3:00 Res ults for this S/P PM MANAGER PACKAGING procedure are i n the results section. [...] Results ALT (Alanine Aminotransferase) (01/28/2022 3:00 PM MANAGER PACKAGING) athologist Signature EXT ALT 20 4 - 35 [facility] Specimen (Source) Anatomical Location Collection Method / Collectio n Time Received Time / Laterality Volume Blood (Blood, Venous) Laly Ward APRN, RBrittonN. LAB BLOOD ADD-ON Performing Organization Address City/State/ZIP Code Phon e Number [facility] (ABNORMAL) Alkaline Phosphatase (01/28/2022 3:00 PM MANAGER PACKAGING) athologist Signature EXT Alkaline 97 (A) 40 - 50 [facility] RE[facility] Phosphatase LAB Specimen (Source) Anatomical Location Collection Method / Collectio n Time Received Time / Laterality Volume Blood (Blood, Venous) Laly Ward APRN RBrittonNBritton LAB BLOOD ADD-ON Performing Organization Address City/State/ZIP Code Phon e Number [facility] RE[facility] Creatinine with Estimated GFR (01/28/2022 3:00 PM MANAGER PACKAGING) athologist Signature EXT Creatinine 0.6 0.5 - 1.5 [facility] mg/dL LAB Specimen (Source) Anatomical Location Collection Method / Collectio n Time Received Time / Laterality Volume Blood (Blood, Venous) Narrative This result has an attachment that is no t available. Laly Ward APRN RRebekah. LAB BLOOD ADD-ON Performing Organization Address City/State/ZIP Code Phon e Number [facility] (ABNORMAL) CBC with Differential, Blood (01/28/2022 3:00 PM MANAGER PACKAGING) Analysis Performed At Patho logist Time Signature [...] R.N. LAB BLOOD ADD-ON Performing Organization Address City/State/ZIP Code Phon e Number [facility] RE[facility] ALT (Alanine Aminotransferase) (01/21/2022) athologist [...] documented as of this encounter Care Teams Finish Painter Relationship Specialty Start Date End Date Elsewhere, Pcp PCP - General Family Medicine 12/25/21 documented as of this encounter
--- OUTSIDE RECORDS SUMMARY | 2022-08-01 06:42 | XMS_ITS | Encounter Summary ---
:1965 Author Organization [facility] Address [address] [place] [address] Care Team Providers Name Role Phone Elsewhere, Pcp Primary Care Provider Unavailable Reason for Referral Outpatient (Routine) - Authorized Specialty Diagnoses / Procedures Referred By Contact Refer red To Contact Diagnoses Veneer Manufacturer Antibiotic Treatment Tejal Medley MPAS, P.A.-C., M.S. [address] [place] [phone] Referral ID Status Reason Start Expiration Visits Visits Date Date Requested Authorized [id number] Authorized Patient 02/08/2022 02/08/2023 1 1 Preference Reason for Visit Reason Comments OPAT Care Coordination Encounter Details Date Type Department Care Team Description 02/08/2022 Clinical Communication Section of Desirae Domingo (Care Infectious Diseases M, R.N. Coordination) in [place], [address] [place] [address] [place] [phone] [place], [place] [phone] (Work) [phone] Social History Tobacco Use Types Packs/Day Years [...] you attend sabianist or Patient refused 2021 methodist services? Do you belong to any clubs or No 05/17/2022 organizations such as sabianist groups, unions, fraNascentric or athletic groups, or school groups? How [...] 02/08/2022 12:06 PM CDT Maritza calls from [employer]. Journeys stop date of 02/11 for IV antibiotics. Maritza requests order be faxed to [facility] where patient has labs and PICC site care done. I called the [facility], .Pull PIC order can be faxed to [phone]. documented in this encounter Plan of Treatment Not on filedocumented as of this encounter Visit Diagnoses Diagnosis [facility]ci Antibiotic Treatment - Primary documented in this encounter Additional Health Concerns Assessment Noted Time PHQ-9 Depression Total Score: 16 02/11/2021 12:00 AM C DT documented as of this encounter Care Teams Nuclear Powerplant Mechanic Helper Relationship Specialty Start Date End Date Elsewhere, Pcp PCP - General Family Medicine 12/25/21 documented as of this encounter
--- OUTSIDE RECORDS SUMMARY | 2022-08-01 06:42 | XMS_ITS | Encounter Summary ---
:1965 Author Organization [facility] Address [address] [place] [address] Care Team Providers Name Role Phone Elsewhere, Pcp Primary Care Provider Unavailable Encounter Details Date Type Department Care Team Description 01/08/2022 Orders Only Pharmacy Prior Auth RO Elsewhere, Pcp [phone] Social History Tobacco Use Types Packs/Day Years [...] attend latter day or Patient refused 2021 buddhist services? Do [...] documented as of this encounter Care Teams Grease Remover Relationship Specialty Start Date End Date Elsewhere, Pcp PCP - General Family Medicine 12/25/21 documented as of this encounter
--- OUTSIDE RECORDS SUMMARY | 2022-08-01 06:42 | XMS_ITS | Encounter Summary ---
:1965 Author Organization [facility] Address [address] [place] [address] Care Team Providers Name Role Phone Elsewhere, Pcp Primary Care Provider Unavailable Encounter Details Date Type Department Care Team Description 02/26/2022 Anesthesia Event RST SEBAS MORAN OR Kaushik Carpenter, [address] [facility] M.B., [place] [address] [address] [facility] [phone] [place] [phone] (Wo rk) Anesthesia Record Procedure Summary Procedure [...] h andoff to the receiving staff during [facility] we 1. Identified the patient [...] 02/26 1421 by Placement Time: 1221 Tejal Gonzalez Popp e, Kathryn L, APRN (created via procedure R.N. documentation); Mask Ventilation: Easy mask; Type: Standard [...] you attend episcopal or Patient refused 2021 evangelical services? Do [...] or the highest technical, or vocational p [employer] degree you have received? Sex Assigned at Date Recorded Female 03/01/2019 10:12 AM CDT documented as of this encounter OR Notes Anesthesia Postprocedure Evaluation - Kaushik Carpenter M.B., Ch.B. - 02/26/2022 3:19 PM CDT Patient: Angie Mosquera Procedure Summary Date: 02/26/22 Room / Location: [address] / [facility] in [place], [place] Anesthesia Start: 1212 Anesthesia Stop: 143 [...] ETT location: oral VL device: glide scope [place] scope blade size: 3 Adult tube size: [...] Pre-op diagnosis: Degenerative joint disease left. Location: [address] / [facility] in [place], [place] Providers: Cyrus Polk M.D. Pertinent components [...] with patient /legal guardian or through an hourly sign language interpreter. Risks/Benefits/Alternatives of Blood transfusion discussed with patient [...] fellow participated in the procedure, and the account consultant was present for the entire procedure. [...] procedure ar e in the results section. ND US GUIDE PLC NDL Routine 02/26/2022 11:53 Resu lts for this AM CDT procedure are i n the results section. ND INJ ANES BRACHIAL Routine 02/26/2022 11:53 Res ults for this PLEX AM CDT procedure are i n the results section. documented in this encounter Results LDA ANE ENDOTRACHEAL AIRWAY (02/26/2022 12:21 PM CDT) Narrative Carlos, Tejal L, R.N. - 02/26/2022 12:21 PM CDT Tejal Gonzalez R.N. ? 02/26/2022 ??1:00 PM Airway Date/Time: 02/26/2022 12:21 PM Performed by: Tejal Gonzalez R.N . Authorized by: Kaushik Carpenter M.B., C h.BBritton Care team members present 1. Kaushik Carpenter M.B., Ch.B. 3. Juana Silva CARTRIDGE ASSEMBLING MACHINE ADJUSTER, REINSURANCE CLAIMS ANALYST Patient location during procedure: OR / Procedure Area PROCEDURE DETAILS: Mask difficulty assessment: easy mask Final airway type: video laryngoscope Laryngeal Manipulation: no ?? Final best view of glottic structures - Cormack/Lehane Score: grade 1 ETT location: oral VL device: glide scope [place] scope blade size: 3 Adult tube size: [...] ATTESTATION STATEMENT Kaushik Carlos, Ch.B. ANESTHESIA ORDERABLES ND INJ ANES BRACHIAL PLEX, ND US GUIDE PLC NDL, MC ANE NERVE [...] fellow participated in the procedure, and the account consultant was present for the entire procedure. [...] documented as of this encounter Care Teams Camera Systems Engineer Relationship Specialty Start Date End Date Elsewhere, Pcp PCP - General Family Medicine 12/25/21 documented as of this encounter
--- OUTSIDE RECORDS SUMMARY | 2022-08-01 06:42 | XMS_ITS | Encounter Summary ---
:1965 Author Organization [facility] Address [address] [place] [address] Care Team Providers Name Role Phone Elsewhere, Pcp Primary Care Provider Unavailable Reason for Referral MRI/CAT/PET Scan (Routine) - Closed Specialty Diagnoses / Procedures Referred By Contact Refer red To Contact Radiology Diagnoses Painful Total Joint Arthroplasty Initial ([facility]) Michael Chino M.D. [facility] Procedures CT Shoulder Left without IV Contrast [address] [place] [phone] Referral ID Status Reason Start Date Expiration Date Visits Requ ested Visits Authorized [id number] Closed 02/25/2022 02/25/2023 1 1 Reason for Visit MRI/CAT/PET Scan (Routine) - Closed Specialty Diagnoses / Procedures Referred By Contact Refer red To Contact Radiology Diagnoses Painful Total Joint Arthroplasty Initial ([facility]) Michael Chino M.D. [facility] Procedures CT Shoulder Left without IV Contrast [address] [place] [phone] Referral ID Status Reason Start Date Expiration Date Visits Requ ested Visits Authorized [id number] Closed 02/25/2022 02/25/2023 1 1 Encounter Details Date Type Department Care Team Description 02/25/2022 Hospital Encounter Department of Michael Chino Total Joint Radiology, Sevreiano Celaya M.D. Arthropl [facility]) [place], [place] [address] [place] [phone] Social History Tobacco Use Types Packs/Day Years [...] you attend shinto or Patient refused 2021 quaker services? Do [...] THC multivit-min/iron/folic/ Take 1 tablet by 0 [id number] (HAIR, SKIN AND mouth daily. NAILS ADVANCED [...] 01/19/202111/2021 mcg/actuation inhaler (two) times a day. ondansetron ODT Take 1 tablet by 0 [...] documented as of this encounter Care Teams Communications Department Chair Relationship Specialty Start Date End Date Elsewhere, Pcp PCP - General Family Medicine 12/25/21 documented as of this encounter
--- OUTSIDE RECORDS SUMMARY | 2022-08-01 06:42 | XMS_ITS | Encounter Summary ---
:1965 Author Organization [facility] Address [address] [place] [address] Care Team Providers Name Role Phone Elsewhere, Pcp Primary Care Provider Unavailable Encounter Details Date Type Department Care Team Description 01/08/2022 Clinical Communication Pharmacy Prior Auth ОЛЬГА Carrera M.D. [phone] Social History Tobacco Use Types Packs/Day Years [...] you attend protestant or Patient refused 2021 temple services? Do [...] Camelia CINTRON. Thank you, The OPPA Team LSTERY DEPARTMENT SUPERVISOR documented in this encounter Plan of Treatment Not on filedocumented as of this encounter Visit Diagnoses Not on filedocumented in this encounter Additional Health Concerns Assessment Noted Time PHQ-9 Depression Total Score: 16 02/11/2021 12:00 AM C DT documented as of this encounter Care Teams Network Control Supervisor Relationship Specialty Start Date End Date Elsewhere, Pcp PCP - General Family Medicine 12/25/21 documented as of this encounter
--- OUTSIDE RECORDS SUMMARY | 2022-08-01 06:42 | XMS_ITS | Encounter Summary ---
:1965 Author Organization [facility] Address [address] [place] [address] Care Team Providers Name Role Phone Elsewhere, Pcp Primary Care Provider Unavailable Reason for Visit Reason Comments Labs Only Encounter Details Date Type Department Care Team Description 02/05/2022 Documentation Section of Infectious Amna Kaur , Labs Only Diseases in [facility] 200 [facility] 200 [place] [phone] Social History Tobacco Use Types Packs/Day Years [...] you attend caodaism or Patient refused 2021 confucianism services? Do [...] PM CST Labs entered at this time. OSION WELDER documented in this encounter Plan of Treatment Not on filedocumented as of this encounter Procedures Procedure Name Priority Date/Time Associated Comments Diagnosis CBC WITH DIFFERENTIAL, B Routine 02/04/2022 3:06 Results for this PM EXPLOSION WELDER procedure are i n the results section. ALANINE AMINOTRANSFERASE Routine 02/04/2022 3:06 Results for this (ALT), S/P PM EXPLOSION WELDER procedure are i n the results section. ALKALINE PHOSPHATASE, Routine 02/04/2022 3:06 Res ults for this S/P PM EXPLOSION WELDER procedure are i n the results section. CREATININE WITH EGFR, Routine 02/04/2022 3:06 Res ults for this S/P PM EXPLOSION WELDER procedure are i n the results section. documented in this encounter Results ALT (Alanine Aminotransferase) (02/04/2022 3:06 PM EXPLOSION WELDER) P athologist Signature EXT ALT 20 4 - 35 OTHER (SPECIFY IN INVENTORY MANAGEMENT SPECIALIST) Specimen (Source) Anatomical Location Collection Method / Collectio n Time Received Time / Laterality Volume Blood (Blood, Venous) Resulting Agency Comment [facility] Gucci Salvador M.D. LAB BLOOD ADD-ON Performing Organization Address City/State/ZIP Code Phon e Number OTHER (SPECIFY IN INVENTORY MANAGEMENT SPECIALIST) OTHER (SPECIFY IN INVENTORY MANAGEMENT SPECIALIST) N/A Alkaline Phosphatase (02/04/2022 3:06 PM EXPLOSION WELDER) P athologist Signature EXT Alkaline 102 40 - 150 OTHER (SPECIFY Phosphatase IN INVENTORY MANAGEMENT SPECIALIST) Specimen (Source) Anatomical Location Collection Method / Collectio n Time Received Time / Laterality Volume Blood (Blood, Venous) Resulting Agency Comment [facility] Gucci Salvador M.D. LAB BLOOD ADD-ON Performing Organization Address City/State/ZIP [facility] Phon e Number OTHER (SPECIFY IN INVENTORY MANAGEMENT SPECIALIST) OTHER (SPECIFY IN INVENTORY MANAGEMENT SPECIALIST) N/A Creatinine with Estimated GFR (02/04/2022 3:06 PM EXPLOSION WELDER) P athologist Signature EXT Creatinine 0.7 0.5 - 1.5 OTHER (SPECIFY mg/dL IN INVENTORY MANAGEMENT SPECIALIST) Specimen (Source) Anatomical Location Collection Method / Collectio n Time Received Time / Laterality Volume Blood (Blood, Venous) Resulting Agency Comment [facility] Gucci Salvador M.D. LAB BLOOD ADD-ON Performing Organization Address City/[facility] Phon e Number OTHER (SPECIFY IN INVENTORY MANAGEMENT SPECIALIST) OTHER (SPECIFY IN INVENTORY MANAGEMENT SPECIALIST) N/A (ABNORMAL) CBC with Differential, Blood (02/04/2022 3:06 PM EXPLOSION WELDER) P athologist Signature EXT Platelet 253 150 - 450 OTHER Count (SPECIFY IN INVENTORY MANAGEMENT SPECIALIST) EXT Hemoglobin 9.1 (A) 12 - 15.5 OTHER (SPECIFY IN INVENTORY MANAGEMENT SPECIALIST) EXT White Blood 4.0 (A) 5.0 - 10.0 OTHER Cell (WBC) (SPECIFY IN Count INVENTORY MANAGEMENT SPECIALIST) Specimen (Source) Anatomical Location Collection Method / Collectio n Time Received Time / Laterality Volume Blood (Blood, Venous) Narrative This result has an attachment that is no t available. Resulting Agency Comment [facility] Gucci Hernandezk Lilian LAB BLOOD ADD-ON Performing Organization Address City/State/ZIP [facility] Phon e Number OTHER (SPECIFY IN INVENTORY MANAGEMENT SPECIALIST) OTHER (SPECIFY IN INVENTORY MANAGEMENT SPECIALIST) N/A documented in this encounter Visit Diagnoses Not on filedocumented in this encounter Additional Health Concerns Assessment Noted Time PHQ-9 Depression Total Score: 16 02/11/2021 12:00 AM C DT documented as of this encounter Care Teams Deputy K 9 Relationship Specialty Start Date End Date Elsewhere, Pcp PCP - General Family Medicine 12/25/21 documented as of this encounter
--- OUTSIDE RECORDS SUMMARY | 2022-08-01 06:42 | XMS_ITS | Encounter Summary ---
:1965 Author Organization [facility] Address [address] [place] [address] Care Team Providers Name Role Phone Elsewhere, Pcp Primary Care Provider Unavailable Encounter Details Date Type Department Care Team Description 01/05/2022 Clinical Communication Section of Infectious Ed [facility] in [place], , ROLE PLAYER, R.N. [place] 200 [facility] 200 [place] [phone] [phone] Social History Tobacco Use Types Packs/Day Years [...] attend oriental orthodox or Patient refused 2021 baptism services? Do [...] Ward APRN, C.N.P. - 01/05/2022 2:17 PM TRACK OILER Left shoulder synovial fluid culture from 12/30 has been reported for growth of oxacillin sensitive Staphylococcus epidermidis. No change recommended to the patient's current regimen of ceftriaxone. K OILER Telephone Encounter - Laly Ward APRN, C.N.P. - 01/05/2022 2:17 PM TRACK OILER ----- Message from Su Greene, Pharm.D., R.Ph. sent at 01/05/2022 9:51 AM TRACK OILER ----- Patient with shoulder infection (with previous [...] needed with medication changes please message RST [facility] PHARMACIST pool. If urgent, page [phone] M-F 9am-5 pm K OILER documented in this encounter Plan of Treatment Not on filedocumented as of this encounter Visit Diagnoses Not on filedocumented in this encounter Additional Health Concerns Assessment Noted Time PHQ-9 Depression Total Score: 16 02/11/2021 12:00 AM C DT documented as of this encounter Care Teams Shoe Stitcher Relationship Specialty Start Date End Date Elsewhere, Pcp PCP - General Family Medicine 12/25/21 documented as of this encounter
--- OUTSIDE RECORDS SUMMARY | 2022-08-01 06:42 | XMS_ITS | Encounter Summary ---
:1965 Author Organization [facility] Address [address] [place] [address] Care Team Providers Name Role Phone Elsewhere, Pcp Primary Care Provider Unavailable Reason for Visit Outpatient (Routine) - Closed Specialty Diagnoses / Procedures Referred By Contact Refer red To Contact Orthopedic Surgery Diagnoses Pain Shoulder Left Alfredo Herrera, [facility] O[facility].-C [address] [place] [phone] Referral ID Status Reason Start Date Expiration Date Visits Requ ested Visits Authorized [id number] Closed 12/30/2021 12/30/2022 1 1 Encounter Details Date Type Department Care Team Description 02/25/2022 Office Visit Department of Orthopedic Cyrus Polk , Pain Shoulder Left Surgery in [facility] [address] [place] [address] [address] [place] [phone] Social History Tobacco Use Types Packs/Day Years [...] you attend quaker or Patient refused 2021 taoism services? Do you belong to any clubs or No 05/17/2022 organizations such as quaker groups, [employer], [email or web address] or athletic groups, or school groups? How [...] involve the use of a medical claims analyst made by a [employer] or one of my partners have collaborated to design, develop, or improve orthopedic implants, instruments, or products. Both the [facility] and the individual surgeons involved receive royalty payments from the use of those specific devices at other institutions, but no royalties or any other payments are paid for the use of those devices with any [facility] patient. The clinical rationale for the use of those devices as well as the availability and applicability of alternative devices was reviewed. He understands that the final decision for the use of a specific medical claims analyst often is made at the time of [...] as of this encounter Care Teams Manager Center Relationship Specialty Start Date End Date Elsewhere, Pcp PCP - General Family Medicine 12/25/21 documented as of this encounter
--- OUTSIDE RECORDS SUMMARY | 2022-08-01 06:42 | XMS_ITS | Encounter Summary ---
:1965 Author Organization [facility] Address 200 [place] [address] Care Team Providers Name Role Phone Elsewhere, Pcp Primary Care Provider Unavailable Reason for Visit Reason Comments OPAT Intervention Encounter Details Date Type Department Care Team Description 01/07/2022 Clinical Communication Section of MATTHEW Tolbert (Intervention) Infectious Diseases [facility] [phone] 200 [facility] (Work) [place] [address] Social History Tobacco Use Types Packs/Day Years [...] you attend tenriism or Patient refused 2021 quaker services? Do [...] Dandy Reyes, Pharm.D. - 01/12/2022 9:38 AM SHOWER ENCLOSURE INSTALLER Pertinent labs and antimicrobial regimen as indicated [...] >0.3 mg/dL and absolute value >1.0 mg/dL. ER ENCLOSURE INSTALLER Telephone Encounter - Steven Dennis R.N. - 01/12/2022 9:13 AM CST OPAT NOTE Infusion Provider: Dennis TA [facility], phone: [phone], fax: [phone] Labs and site care at [facility], phone: [phone] Antimicrobial(s) currently prescribed: See Med List Hyperlink in note Firm stop date: 02/11/22 Lab results from 01/07/22 are viewable in the MCR record--listed as External Labs (received via fax, which has been uploaded to Document Viewer/Media) Interpretation and action: Will send to the OPAT pharmacist to review the creatinine, which has decreased >30%. Alk phos wasnot drawn. ER ENCLOSURE INSTALLER documented in this encounter Plan of Treatment Not on filedocumented as of this encounter Procedures Procedure Name Priority Date/Time Associated Comments Diagnosis CBC WITH DIFFERENTIAL, B Routine 01/07/2022 2:30 Results for this PM SHOWER ENCLOSURE INSTALLER procedure are i n the results section. ALANINE AMINOTRANSFERASE Routine 01/07/2022 2:30 Results for this (ALT), S/P PM SHOWER ENCLOSURE INSTALLER procedure are i n the results section. CREATININE WITH EGFR, Routine 01/07/2022 2:30 Res ults for this S/P PM SHOWER ENCLOSURE INSTALLER procedure are i n the results section. documented in this encounter Results ALT (Alanine Aminotransferase) (01/07/2022 2:30 PM SHOWER ENCLOSURE INSTALLER) P athologist Signature EXT ALT 10 4 - 35 [facility]) Specimen (Source) Anatomical Location Collection Method / Collectio n Time Received Time / Laterality Volume Blood (Blood, Venous) Laly Ward APRN, R.N. LAB BLOOD ADD-ON Performing Organization Address [facility] e [facility], [address] [place] [address] [facility]) Creatinine with Estimated GFR (01/07/2022 2:30 PM SHOWER ENCLOSURE INSTALLER) Analysis Performed At Patho logist Time Signature EXT Creatinine 0.5 0.5 - 1.5 [place] mg/dL [facility]) Specimen (Source) Anatomical Location Collection Method / Collectio n Time Received Time / Laterality Volume Blood (Blood, Venous) Narrative This result has an attachment that is no t available. Laly Ward APRN, R.N. LAB BLOOD ADD-ON Performing Organization Address [facility] Phon e Number [facility], [address] [place] [phone] [facility]) (ABNORMAL) CBC with Differential, Blood (01/07/2022 2:30 PM SHOWER ENCLOSURE INSTALLER) [facility] gist Method Time Signature EXT Platelet 349 150 - 450 [facility], [facility]) EXT Eosinophils 0.28 0 - 0.5 [facility]) EXT Hemoglobin 8.7 (A) 12 - 15.5 [facility], [facility]) EXT Absolute 3.19 1.7 - 7 [place] Neutrophils [facility], [facility]) EXT White Blood 5.4 5.0 - [place] Cell (WBC) 10.0 [facility]) Specimen (Source) Anatomical Location Collection Method / Collectio n Time Received Time / Laterality Volume Blood (Blood, Venous) Narrative This result has an attachment that is no t available. Laly Ward APRN, R.N. LAB BLOOD ADD-ON Performing Organization Address City/State/ZIP Code Phon e Number [facility], [address] [place], [place] [id number] [facility]) documented in this encounter Visit Diagnoses Not on filedocumented in this encounter Additional Health Concerns Assessment Noted Time PHQ-9 Depression Total Score: 16 02/11/2021 12:00 AM C DT documented as of this encounter Care Teams Nascar Driver Relationship Specialty Start Date End Date Elsewhere, Pcp PCP - General Family Medicine 12/25/21 documented as of this encounter
--- OUTSIDE RECORDS SUMMARY | 2022-08-01 06:42 | XMS_ITS | Encounter Summary ---
:1965 Author Organization [facility] Address [address] [place] [address] Care Team Providers Name Role Phone Elsewhere, Pcp Primary Care Provider Unavailable Reason for Referral Outpatient (Routine) - Closed Specialty Diagnoses / Procedures Referred By Contact Refer red To Contact Diagnoses Arthroplasty Total Shoulder Replacement Status Post Left Alfredo Herrera O.P.A.-C. [facility] Procedures DX Shoulder Left Ingrowth Series 5 Views [address] [place] [phone] Referral ID Status Reason Start Date Expiration Date Visits Requ ested Visits Authorized [id number] Closed 02/25/2022 02/25/2023 1 1 Outpatient (Routine) - Closed Specialty Diagnoses / Procedures Referred By Contact Refer red To Contact Orthopedic Surgery Diagnoses Arthroplasty Total Shoulder Replacement Status Post Left Alfredo Herrera, [facility] Anh [address] [place] [phone] Referral ID Status Reason Start Date Expiration Date Visits Requ ested Visits Authorized [id number] Closed 02/25/2022 02/25/2023 1 1 Scheduling Instructions 6 wk f/u L TSA Reason for Visit Reason Comments Pre-visit Testing Orders Encounter Details Date Type Department Care Team Description 02/25/2022 Clinical Communication Department of Jam Pre- visit Testing Orthopedic Surgery Cyrus Souza M.D. Orders in [place], [address] [place], [place] [address] [facility] [address] [place], [place] [phone] (Work) [phone] Social History Tobacco Use Types Packs/Day Years [...] you attend yarsani or Patient refused 2021 synagogue services? Do [...] Type Priority Associated Diagnoses Order S [facility] Orthopedic Surgery Outpatient Referral Routine Arthroplasty To [...] as of this encounter Care Teams Manager Performance Improvement Relationship Specialty Start Date End Date Elsewhere, Pcp PCP - General Family Medicine 12/25/21 documented as of this encounter
--- OUTSIDE RECORDS SUMMARY | 2022-08-01 06:42 | XMS_ITS | Encounter Summary ---
:1965 Author Organization [facility] Address [address] [place] [address] Care Team Providers Name Role Phone Elsewhere, Pcp Primary Care Provider Unavailable Encounter Details Date Type Department Care Team Description 02/26/[address] [facility] Austyn Breaux, Pharmacy Umu Alejo [address] [facility] [place] [address] Social History Tobacco Use Types [...] you attend christianity or Patient refused 2021 christian services? Do [...] documented as of this encounter Care Teams Emery Wheel Molder Relationship Specialty Start Date End Date Elsewhere, Pcp PCP - General Family Medicine 12/25/21 documented as of this encounter
--- OUTSIDE RECORDS SUMMARY | 2022-08-01 06:42 | XMS_ITS | Encounter Summary ---
:1965 Author Organization [facility] Address [address] [place] [address] Care Team Providers Name Role Phone Elsewhere, Pcp Primary Care Provider Unavailable Reason for Referral MRI/CAT/PET Scan (Routine) - Closed Specialty Diagnoses / Procedures Referred By Contact Refer red To Contact Radiology Diagnoses Painful Total Joint Arthroplasty Initial ([facility]) Michael Chino M.D. [facility] Procedures CT Shoulder Left without IV Contrast [address] [place] [address] Referral ID Status Reason Start Date Expiration Date Visits Requ ested Visits Authorized [id number] Closed 02/25/2022 02/25/2023 1 1 Encounter Details Date Type Department Care Team Description 02/25/2022 Orders Only Department of Michael Chino, Painful T otal Joint Orthopedic Surgery in [place].Neri Arthro plasty Initial [place], [place] ([facility]) [address] [place] [address] Social History Tobacco Use Types Packs/Day Years [...] you attend mormonism or Patient refused 2021 denominational services? Do you belong to any clubs or No 05/17/2022 organizations such as mormonism groups, [employer], fraBooking Angel or athletic groups, or school groups? How [...] documented as of this encounter Care Teams Veteran Appeals Reviewer Relationship Specialty Start Date End Date Elsewhere, Pcp PCP - General Family Medicine 12/25/21 documented as of this encounter
--- OUTSIDE RECORDS SUMMARY | 2022-08-01 06:42 | XMS_ITS | Encounter Summary ---
:1965 Author Organization [facility] Address [address] [place] [address] Care Team Providers Name Role Phone Elsewhere, Pcp Primary Care Provider Unavailable Reason for Visit Reason Comments OPAT Lab request Encounter Details Date Type Department Care Team Description 01/26/2022 Clinical Communication Section of Ruth Eddy (Lab request) Infectious T, R.N. Diseases in [address] [place] [phone] [place] [address] [place], [place] (Work) [phone] Social History Tobacco Use Types Packs/Day Years [...] you attend confucianist or Patient refused 2021 sikh services? Do [...] Eddy RBrittonN. - 01/26/2022 4:13 PM CST [facility], phone: [phone] was called and message left to fax us lab results. Our fax and phone number was given. KSHAFT GRINDER documented in this encounter Plan of Treatment Not on filedocumented as of this encounter Visit Diagnoses Not on filedocumented in this encounter Additional Health Concerns Assessment Noted Time PHQ-9 Depression Total Score: 16 02/11/2021 12:00 AM C DT documented as of this encounter Care Teams Loom Tuner Relationship Specialty Start Date End Date Elsewhere, Pcp PCP - General Family Medicine 12/25/21 documented as of this encounter
--- OUTSIDE RECORDS SUMMARY | 2022-08-01 06:42 | XMS_ITS | Encounter Summary ---
:1965 Author Organization [facility] Address [address] [place] [address] Care Team Providers Name Role Phone Elsewhere, Pcp Primary Care Provider Unavailable Reason for Visit Reason Comments OPAT Monitoring Complete Encounter Details Date Type Department Care Team Description 02/12/2022 Clinical Communication Section of Kylie Siddiqui (Monitoring Infectious Diseases M, R.N. Complete) in [facility] [phone] [place] (Work) [address] [place] [phone] Social History Tobacco Use Types Packs/Day Years [...] you attend quaker or Patient refused 2021 mormonism services? Do [...] Complete) Information Discussed Princess, a nurse from [place], called to see if any labs need [...] documented as of this encounter Care Teams Barber Apprentice Relationship Specialty Start Date End Date Elsewhere, Pcp PCP - General Family Medicine 12/25/21 documented as of this encounter
--- OUTSIDE RECORDS SUMMARY | 2022-08-01 06:42 | XMS_ITS | Encounter Summary ---
:1965 Author Organization [facility] Address 200 [place] [address] Care Team Providers Name Role Phone Elsewhere, Pcp Primary Care Provider Unavailable Encounter Details Date Type Department Care Team Description 02/26/2022 Surgery RST SE[facility]AN OR Cyrus Polk, ARTHROPLASTY REPLACEMENT [address] [facility] [place] [phone] [phone] [facility] [phone] [place] [address] Social History Tobacco Use Types Packs/Day Years [...] you attend restoration or Patient refused 2021 roman catholic services? [...] or the highest technical, or vocational p In2Gamesram degree you have received? Sex Assigned at [...] THC multivit-min/iron/folic/ Take 1 tablet by 0 [id number] (HAIR, SKIN AND mouth daily. NAILS ADVANCED [...] - 02/27/2022 8:05 AM CDT Orthopedic Service: [facility] Hospital Admission Day: 02/26/2022 SUBJECTIVE POD1. She [...] am until 6 pm, please page the [facility] pager at [phone] For urgent matters from 6 pm until 6 am, please page Ortho House at [phone] Michael Chino M.D. - 02/26/2022 3:03 PM CDT Orthopedic Service: [facility] Hospital Admission Day: 02/26/2022 [...] am until 6 pm, please page the [email or web address] pager at [phone] For urgent matters from 6 pm until 6 am, please page Ortho House at [phone] Clemente Buck, Pharm.D., R.Ph. - 02/26/2022 9:17 [...] Take 150 mg by mouth every morning. aldmmiuhnn-znguldzuahehm-bjpa (ESGIC) 50-325-40 mg per tablet Past Week [...] 1 spray as needed. 5 mg THC multivit-min/iron/folic/lrc432 (HAIR, SKIN AND NAILS ADVANCED ORAL) 02/25/2022 [...] (HCC) ??? Nicotine Dependence Unspecified ??? Other Inward Toll Operator Current Drug Therapy ??? Direct Infection Of [...] Right Lives With: Alone Receives Help From: change room attendant, Family, Friend(s) ADL Assistance: Required assistance ADL Assistance Comments: Gets help from METER TECHNICIAN for her bath/shower and for her meals IADL/Homemaking Assistance: Required assistance IADL/Homemaking Assistance Comments: Gets help for housecleaning Driving: Independent Driving Comments: takes her cane and medical alert with her. Occupational Role: On disability Occupational Role Comments: Previously worked at a [employer] Prior Mobility/Functional Transfers Level of [place]: Modified independent Previous Transfer/Mobility Assistance Comments: Patient [...] during therapy session: yes Outcome Measures [facility] Inpatient Short Form: -[facility] Basic Mobility (V.2) How much help from [...] AM-PAC Basic Mobility (V.2) Raw Score: 24 -[facility] Basic Mobility (V.2) Standardized Score: 57.68 Interpretation: Clinicians answer the -[facility] Inpatient Short Form based on observed patient [...] be placed with approximately 70% contact with pitka's point bone. The more superior aspect of the [...] of antibiotic spacer, implantation of reverse arthroplasty, [id number] Cyrus Polk M.D. CT CT Job ID: [id number] documented in this encounter Plan of Treatment [...] [facility] - [address] [place], [place] [address] [facility] [place] [address] [facility] [address] [facility] (ABNORMAL) Basic Metabolic Panel (02/26/2022 3:47 PM [...] 02/26/2022 DTL Black/ mL/min/BSA 6:27 PM CDT Czech Comment: ----ADDITIONAL INFORMATION---- Estimated GFR calculated using [...] [facility] - [address] [place], [place] [address] [facility] [place] [place] [address] [facility] [address] [facility] (ABNORMAL) CBC with Differential, Blood (02/26/2022 3:47 PM CDT) [facility] gist Method Time Signature Hemoglobin 8.8 [...] Number [facility] - 200 [place], [place] [address] [facility] [place] [place] [address] [facility]) [address] DX Shoulder Left 1 View (02/26/2022 2:47 [...] Aerobe / Anaerobe+Susc (02/26/2022 1:00 PM CDT) [facility] gist Method Time Signature Bacteria Cult, No growth 03/12/2022 DTL Aerobe/Anaerob after 14 2:02 PM CDT e+Susc days of incubation. Specimen Anatomical Collection Method Collection Time Receive d Time (Source) Location / / Volume Laterality Shoulder, Left 02/26/2022 1:00 PM 022 1:41 CDT PM CDT Comment: Specimen Source Site: Tissue 1 Narrative [facility] - 03/12/2022 2:02 PM CDT Bacterial Culture: Placed in Bactec aero bic and Bactec anaerobic bottles Cyrus Polk M.D. LAB MICROBIOLOGY - GENERAL O RDERABLES Performing Organization Address City/[facility] Phon e Number [facility] - 200 [place], [place] [address] [facility] [place] [address] [facility] 200 [facility] Bacteria Cult, Aerobe / Anaerobe+Susc (02/26/2022 1:00 PM CDT) Patholo gist Method Time Signature Bacteria Cult, No growth 03/12/2022 DTL Aerobe/Anaerob after 14 2:02 PM CDT e+Susc days of incubation. Specimen Anatomical Collection Method Collection Time Receive d Time (Source) Location / / Volume Laterality Shoulder, Left 02/26/2022 1:00 PM 022 1:38 CDT PM CDT Comment: Specimen Source Site: Tissue 3 Narrative [facility] - 03/12/2022 2:02 PM CDT Bacterial Culture: Placed in Bactec aero bic and Bactec anaerobic bottles Cyrus Polk M.D. LAB MICROBIOLOGY - GENERAL O RDERASARAH Performing Organization Address City/[facility] Phon e Number [facility] - [address] [place], [place] [address] [facility] [place] [place] [address] [facility] 200 [facility] Bacteria Cult, Aerobe / Anaerobe+Susc (02/26/2022 1:00 PM CDT) Patholo gist Method Time Signature Bacteria Cult, No growth 03/12/2022 DTL Aerobe/Anaerob after 14 2:02 PM CDT e+Susc days of incubation. Specimen Anatomical Collection Method Collection Time Receive d Time (Source) Location / / Volume Laterality Shoulder, Left 02/26/2022 1:00 PM 022 1:36 CDT PM CDT Comment: Specimen Source Site: Tissue 2 Narrative [facility] - 03/12/2022 2:02 PM CDT Bacterial Culture: Placed in Bactec aero bic and Bactec anaerobic bottles Cyrus Polk M.D. LAB MICROBIOLOGY - GENERAL O RDERABLES Performing Organization Address City/State/ZIP Code Phon e Number [facility] - [address] [place] [address] [facility] [place] [address] [facility] 200 [facility] Surgical Pathology, Frozen Lab (02/26/2022 1:00 PM [...] permanent sections. ??Grossed by Nan Ledezma M.S., AMELIA([facility]). Block Summary A Left shoulder 03/01/2022 [...] [facility] - [address] [place], [place] [address] [place] [address] [facility] [address] documented in this encounter [...] 02/26/2022 02/27/2022 acetaminophen tablet 1,000 mg (TYLENOL) 6109 (Given - Provider: Tanesha Butt)9727 (Given - Provider: Tanesha Butt) 0431 (Given - Provider: Lauren Mckeon RBrittonN.)1104 (Given - Provider: Catalina Mccloud R.N.) 1,000 [...] 043 (New Bag - Provider: Lauren rosa RBrittonNBritton) [...] (COMPLETED) 1247 (Given - Provider: Tejal Gonzalez RBrittonNBritton) 2,000 mg (rounded from 1,717.5 mg = [...] Reason: Contraindicated)0606 (Given - Provider: Lauren Mckeon RBetsy) 25 mg, oral, Every 6 hours, First dose on Tue02/26/22 at 1800 FLUoxetine capsule 80 mg (PROzac) 0825 (Given - Provider: Christiano Archer.NBritton) 80 mg, oral, Daily, First dose on [...] Butt) 0825 (Given - Provider: Catalina Mccloud RBtesy) 40 mg, oral, 2 times daily, First dose on Tue02/26/22 at 1700 lamoTRIgine tablet 200 mg (LaMICtaL) 204 1 (Given - Provider: Tanesha Butt) 0825 (Given - Provider: Catalina lerma R.NBritton) 200 mg, oral, 2 times daily, First dose on Tue02/26/22 at 2100 midazolam (PF) injection 1 mg (VERSED) (COMPLETED) 1137 (Given - Provider: Donna Mercado RBetsy) 1 mg, intravenous, Once, On Tue02/26/22 at 1045, For 1 dose, Pre- Op ondansetron (PF) injection 4 mg (ZOFRAN) (COMPLETED) 1203 (Given - Provider: Donna Mercado R.N.) 4 mg, intravenous, Once, On Tue02/26/22 at [...] (New Ba g - Provider: Donna Mercado R.N.)1212 (Stopped - Provider: Tejal Gonzalez R.N.) 20 mL/hr, intravenous, Continuous, Starting on Tue02/26/22 at 104 5, Pre-Op lactated ringers 1437 (Continued from OR - Provi marquis: Sharifa ZabalaNBritton) 20 mL/hr, intravenous, Continuous, Start ing on [...] mg of calcium, oral, Every 2 hour NC N, indigestion, Starting on Tue02/26/22 at 1451, [...] (COMPLETED) 0433 (Given - Provider: Lauren Mckeon RBrittonNBritton) 0.2 mg, intravenous, Every 2 hour PRN, [...] (COMPLETED) 1504 (Given - Provider: Guillermina Oneill RBetsy) 10 mg, oral, Once as needed, For [...] RBrittonN., ONC)0433 (Given - Provider: Lauren Mckeon RBrittonN.)0743 (Given - Provider: Catalina Mccloud R.N.) 10 mg, oral, Every 3 hours PRN, severe p ain or score 7-10 of 10, Starting on Tue02/26/22 at 1818 oxyCODONE IR tablet 10 mg (ROXICODONE)(Linked Group 1) 1104 (See Alternative - Provider: Catalina Mccloud RRebekah.) 10 mg, oral, Every 3 hours PRN, [...] as of this encounter Care Teams Assistant County Attorney Relationship Specialty Start Date End Date Elsewhere, Pcp PCP - General Family Medicine 12/25/21 documented as of this encounter
--- OUTSIDE RECORDS SUMMARY | 2022-08-01 06:43 | XMS_ITS | Encounter Summary ---
:1965 Author Organization [facility] Address [address] [place] [address] Care Team Providers Name Role Phone Elsewhere, Pcp Primary Care Provider Unavailable Reason for Referral Outpatient (Routine) - Closed Specialty Diagnoses / Procedures Referred By Contact Refer red To Contact Orthopedic Surgery Diagnoses Pain Shoulder Left Alfredo Herrera, [facility] Anh [address] [place] [phone] Referral ID Status Reason Start Date Expiration Date Visits Requ ested Visits Authorized [id number] Closed 12/30/2021 12/30/2022 1 1 ITECTURAL ENGINEER Reason for Visit Reason Comments Pre-visit Testing Orders Encounter Details Date Type Department Care Team Description 12/29/2021 Clinical Communication Department of Jam Pre- visit Testing Orthopedic Surgery Cyrus Souza M.D. Orders in [address] [place] [address] [place], [place] [phone] (Work) [phone] Social History Tobacco Use Types Packs/Day Years [...] you attend buddhist or Patient refused 2021 catholic services? Do you belong to any clubs or No 05/17/2022 organizations such as buddhist groups, unions, [employer]ah [employer] or athletic groups, or school groups? How [...] 12/29/2021 1:06 PM CST Please sign order ITECTURAL ENGINEER documented in this encounter Plan of Treatment Scheduled Referrals Name Type Priority Associated Order Schedule Diagnoses Orthopedic Surgery Outpatient Referral Routine Pain Shoulder L eft Expected: Pre Op (clinic) 02/24/2022, Expires: 03/28/2023 documented as of this encounter Results SARS CoV-2 RNA, PCR, Varies Asymptomatic (02/25/2022 11:09 AM CDT) [facility] Method Time Signature SARS CoV-2 Swab, [...] Drug Administration an d is used per car clerk pullman's instructions. Performance characteristics were verified by [facility] in a manner consistent with CLIA requirements. Visit the CDC website: https://www.cdc.g ov/coronavirus/ for the most recent guidelines on Coron avirus testing. Fact Sheet for Healthcare Providers: https://www.fda.gov/media/689052/downloa d Fact Sheet for Patients: https://www.fda.gov/media/096666/downloa d Specimen Anatomical Collection Method Collection Time Receive d Time (Source) Location / / Volume Laterality Varies 02/25/2022 11:09 02/25/2022 (Nasopharynx) AM CDT 11:40 AM CDT Alfredo Kamara LAB MICROBIOLOGY - GENERAL O RDERABLES Performing Organization Address City/State/ZIP Code Phon e Number [facility] - [address] [place], [place] [address] [facility] [place] [address] [facility] [address] documented in this encounter Visit Diagnoses Diagnosis Pain Shoulder Left - Primary documented in this encounter Additional Health Concerns Infection Onset Date Last Indicated Resolved Time COVID19 Pending 12/29/2021 12/29/2021 12/29/2021 4:20 PM ARCHITECTURAL ENGINEER Assessment Noted Time PHQ-9 Depression Total Score: 16 02/11/2021 12:00 AM C DT documented as of this encounter Care Teams Manufacturing Supervisor 2Nd Shift Relationship Specialty Start Date End Date Elsewhere, Pcp PCP - General Family Medicine 12/25/21 documented as of this encounter
--- OUTSIDE RECORDS SUMMARY | 2022-08-01 06:43 | XMS_ITS | Encounter Summary ---
:1965 Author Organization [facility] Address [address] [place] [address] Care Team Providers Name Role Phone Elsewhere, Pcp Primary Care Provider Unavailable Encounter Details Date Type Department Care Team Description 01/01/2022 Episode Changes Section of Infectious Lin [facility] in [place], (Work ) [place] [address] [place] [address] Social History Tobacco Use Types Packs/Day [...] documented as of this encounter Care Teams Data Communications Engineer Relationship Specialty Start Date End Date Elsewhere, Pcp PCP - General Family Medicine 12/25/21 documented as of this encounter
--- OUTSIDE RECORDS SUMMARY | 2022-08-01 06:43 | XMS_ITS | Encounter Summary ---
:1965 Author Organization [facility] Address [address] [place] [address] Care Team Providers Name Role Phone Elsewhere, Pcp Primary Care Provider Unavailable Encounter Details Date Type Department Care Team Description 12/29/2021 Hospital Encounter Department of Alfredo Herrera ative Exam; Laboratory Medicine A, O.P.A.-C. Painful Total Joint Arthroplasty Initial (HCC) and Pathology, [address] [place] [address], in [place] [id number] [place] [phone] [place] [address] (Work) [place], [place] [phone] [address] (Fax) [phone] Social History Tobacco Use Types Packs/Day Years [...] you attend yazidism or Patient refused 2021 hoahaoism services? Do [...] THC multivit-min/iron/folic/ Take 1 tablet by 0 [id number] (HAIR, SKIN AND mouth daily. NAILS ADVANCED [...] constipation. acetaminophen (TYLENOL) Take 2 capsules 0 01/01/2 022 06/21/2022 500 mg capsule (1,000 mg [...] mouth 0 06/17/2022 mg tablet at bedtime. cefTRIAXone in dextrose, Infuse 50 mL (2 g 2049 mL 0 02/202202/11/2022 iso-osm, (ROCEPHIN) 2 total) [...] after two to four hours. ondansetron ODT Take 1 tablet by 0 [...] 12/29/2021 11:34 Results for this RBC AM SUPERVISOR MAINTENANCE procedure are i n the results section. CBC WITH Routine 12/29/2021 11:34 Preoperative Ex am Results for this DIFFERENTIAL, B AM [employer]PERVISOR MAINTENANCE Painful Total Joint proce dure are in Arthroplasty Initial the res ults ([facility]) section. TYPE AND SCREEN Routine 12/29/2021 11:34 Preoperative Ex am Results for this AM [employer]PER[employer]OR MAINTENANCE Painful Total Joint procedur e are in Arthroplasty Initial the res ults ([facility]) section. BASIC METABOLIC Routine 12/29/2021 11:34 Preoperative Ex am Results for this PANEL, S/P AM [employer]PERVISOR MAINTENANCE Painful Total Joint procedur e are in Arthroplasty Initial the res ults ([facility]) section. documented in this encounter Results Antibody Screen, RBC (12/29/2021 11:34 AM SUPERVISOR MAINTENANCE) athologist Signature Antibody Negative Negative 12/29/2021 DTL Screen 12:59 PM SUPERVISOR MAINTENANCE Specimen Anatomical Collection Method Collection Time Receive d Time (Source) Location / / Volume Laterality Blood 12/29/2021 11:34 12/29/2021 AM SUPERVISOR MAINTENANCE 11:58 AM SUPERVISOR MAINTENANCE Alfredo Kamara LAB BLOOD BANK TEST ORDERABL ES Performing Organization Address City/State/ZIP Code Phon e Number [facility] - [address] [place], [place] [address] [facility] [place] [address] Laboratories-[facility] [address] (ABNORMAL) Basic Metabolic Panel (12/29/2021 11:34 AM SUPERVISOR MAINTENANCE) athologist [facility] Potassium, S 4.7 3.6 - 5.2 12/29/2021 DTL mmol/L 12:38 PM SUPERVISOR MAINTENANCE Sodium, S 143 135 - 145 12/29/2021 DTL mmol/L 12:38 PM SUPERVISOR MAINTENANCE Chloride, S 108 (H) 98 - 107 12/29/2021 DTL mmol/L 12:38 PM SUPERVISOR MAINTENANCE Bicarbonate, S 24 22 - 29 12/29/2021 DTL mmol/L 12:38 PM SUPERVISOR MAINTENANCE Anion Gap 11 7 - 15 12/29/2021 DTL 12:38 PM SUPERVISOR MAINTENANCE BUN (Blood Urea 15 6 - 21 12/29/2021 DTL Nitrogen), S mg/dL 12:38 PM [employer]PER[employer]OR MAINTENANCE Creatinine 0.83 0.59 - 12/29/2021 DTL 1.04 mg/dL 12:38 PM SUPERVISOR MAINTENANCE eGFR-Non 78 >=60 12/29/2021 DTL Black/ mL/min/BSA 12:38 PM SUPERVISOR MAINTENANCE Bahamian Comment: ----ADDITIONAL INFORMATION---- Estimated GFR calculated using the 2009 CKD_EPI creatinine equation. eGFR-Black/ 90 >=60 mL/min/BSA 2021 12:38 PM SUPERVISOR MAINTENANCE DTL Comment: ----ADDITIONAL INFORMATION---- Estimated GFR calculated using the 2009 CKD_EPI creatinine equation. Calcium, Total, S 9.1 8.6 - 10.0 mg/dL 12/29/2021 12:3 8 PM SUPERVISOR MAINTENANCE DTL Glucose, S 90 70 - 140 mg/dL 12/29/2021 12:38 PM SUPERVISOR MAINTENANCE DTL Specimen Anatomical Collection Method Collection Time Receive d Time (Source) Location / / Volume Laterality Blood (Blood, 12/29/2021 11:34 12/29/2021 Venous) AM [employer]PERVISOR MAINTENANCE 12:13 PM SUPERVISOR MAINTENANCE Alfredo Kamara LAB BLOOD ADD-ON Performing Organization Address City/State/ZIP [facility] Phon e Number [facility] - [address] [place], [place] [address] [facility] [place] [address] Laboratories-[facility] [place] [facility] 200 [facility] Type and Screen (with reflex Antibody ID) (12/29/2021 11:34 AM SUPERVISOR MAINTENANCE) [facility] Method Time Signature ABORh A Neg Not applicable 12/29/2021 ETRM 12:59 PM SUPERVISOR MAINTENANCE Antibody CANCELED 12/29/2021 ETRM Screen 12:59 PM SUPERVISOR MAINTENANCE Comment: Result canceled by the ancillar y. Type & Screen Expiration 02/26/2022 23:59 12/29/19 22 12:59 PM SUPERVISOR MAINTENANCE ETRM Testing Location Ara DEFAULT 12/29/2021 11:58 AM SUPERVISOR MAINTENANCE ETRM Specimen Anatomical Collection Method Collection Time Receive d Time (Source) Location / / Volume Laterality Blood (Blood, 12/29/2021 11:34 12/29/2021 Venous) AM SUPERVISOR MAINTENANCE 11:58 AM SUPERVISOR MAINTENANCE Alfredo Kamara LAB BLOOD BANK TEST ORDERABL ES Performing Organization Address City/[facility] Phon e Number [facility] - [address] [place] [phone] [facility] [place] [address] Laboratories-[facility] [place] [facility] 200 [facility] (ABNORMAL) CBC with Differential, Blood (12/29/2021 11:34 AM SUPERVISOR MAINTENANCE) [facility] Method Time Signature Hemoglobin 11.2 (L) 11.6 - 12/29/2021 DTL 15.0 g/dL 12:02 PM SUPERVISOR MAINTENANCE Hematocrit 34.1 (L) 35.5 - 12/29/2021 DTL 44.9 % 12:02 PM SUPERVISOR MAINTENANCE Erythrocytes 4.04 3.92 - 12/29/2021 DTL 5.13 12:02 PM SUPERVISOR MAINTENANCE x10(12)/L MCV 84.4 78.2 - 12/29/2021 DTL 97.9 fL 12:02 PM SUPERVISOR MAINTENANCE RBC Distrib Width 20.2 (H) 12.2 - 12/29/2021 DTL 16.1 % 12:02 PM SUPERVISOR MAINTENANCE Platelet Count 324 157 - 371 12/29/2021 DTL x10(9)/L 12:02 PM SUPERVISOR MAINTENANCE Leukocytes 5.1 3.4 - 9.6 12/29/2021 DTL x10(9)/L 12:02 PM SUPERVISOR MAINTENANCE Neutrophils 3.08 1.56 - 12/29/2021 DTL 6.45 12:02 PM SUPERVISOR MAINTENANCE x10(9)/L Lymphocytes 1.39 0.95 - 12/29/2021 DTL 3.07 12:02 PM SUPERVISOR MAINTENANCE x10(9)/L Monocytes 0.43 0.26 - 12/29/2021 DTL 0.81 12:02 PM SUPERVISOR MAINTENANCE x10(9)/L Eosinophils 0.17 0.03 - 12/29/2021 DTL 0.48 12:02 PM SUPERVISOR MAINTENANCE x10(9)/L Basophils 0.05 0.01 - 12/29/2021 DTL 0.08 12:02 PM SUPERVISOR MAINTENANCE x10(9)/L Specimen Anatomical Collection Method Collection Time Receive d Time (Source) Location / / Volume Laterality Blood (Blood, 12/29/2021 11:34 12/29/2021 Venous) AM SUPERVISOR MAINTENANCE 11:54 AM SUPERVISOR MAINTENANCE Alfredo Kamara LAB BLOOD ADD-ON Performing Organization Address City/State/ZIP Code Phon e Number [facility] - [facility] [address] [place], [place] [address] [facility] [place] [address] Laboratories-[facility] [place] [facility] [address] documented in this encounter Visit Diagnoses Diagnosis Preoperative Exam Painful Total Joint Arthroplasty Initial (HCC) documented in this encounter Additional Health Concerns Assessment Noted Time PHQ-9 Depression Total Score: 16 02/11/2021 12:00 AM C DT documented as of this encounter Care Teams Psychosocial Rehabilitation Counselor Relationship Specialty Start Date End Date Elsewhere, Pcp PCP - General Family Medicine 12/25/21 documented as of this encounter
--- OUTSIDE RECORDS SUMMARY | 2022-08-01 06:43 | XMS_ITS | Encounter Summary ---
:1965 Author Organization [facility] Address [address] [place] [address] Care Team Providers Name Role Phone Elsewhere, Pcp Primary Care Provider Unavailable Reason for Referral Outpatient (Routine) - Closed Specialty Diagnoses / Procedures Referred By Contact Refer red To Contact Infectious Diseases Diagnoses Aftercare Total Shoulder Arthroplasty Jose Guadalupe Nixon [place] M.D. [address] [place] [address] Referral ID Status Reason Start Date Expiration Date Visits Requ ested Visits Authorized [id number] Closed 01/01/2022 01/01/2023 1 1 COMPANION Reason for Visit Reason Comments OPAT Post Hospital Follow-up Encounter Details Date Type Department Care Team Description 01/01/2022 Clinical Communication RST HIM MATTHEW Nixon; [facility] [address] [place] [address] Jose Guadalupe Garcia M.D. Follow-up [place], [place] [address] [place] [id number] [place] [address] Social History Tobacco Use Types Packs/Day Years [...] you attend taoism or Patient refused 2021 restorationist services? Do you belong to any clubs or No 05/17/2022 organizations such as taoism groups, unions, fraOvertone or athletic groups, or school groups? How [...] Name Type Priority Associated Diagnoses Order S [facility] Infectious Disease Outpatient Routine Aftercare Total [...] M.D. LAB BLOOD ADD-ON Performing Organization Address City/State/[facility] Phon e Number [facility] - [address] [place] [phone] [address] CRP (C-Reactive Protein) (02/25/2022 10:09 AM CDT) P athologist Signature C-Reactive <3.0 <=8.0 mg/L 02/25/2022 DTL Protein (CRP), 11:34 AM CDT S Specimen Anatomical Collection Method Collection Time Receive d Time (Source) Location / / Volume Laterality Blood (Blood, 02/25/2022 10:09 02/25/2022 Venous) AM CDT 11:00 AM CDT Jose Guadalupe Nixon M.D. LAB BLOOD ADD-ON Performing Organization Address [facility] Phon e Number [facility] - [address] (ABNORMAL) CBC with Differential, Blood (02/25/2022 [...] [facility] - [address] [place], [place] [address] [facility] [place] [address] Laboratories-[facility] [address] documented in this encounter Visit Diagnoses Diagnosis Aftercare Total Shoulder Arthroplasty - Primary documented in this encounter Additional Health Concerns Assessment Noted Time PHQ-9 Depression Total Score: 16 02/11/2021 12:00 AM C DT documented as of this encounter Care Teams Oim Architect Relationship Specialty Start Date End Date Elsewhere, Pcp PCP - General Family Medicine 12/25/21 documented as of this encounter
--- OUTSIDE RECORDS SUMMARY | 2022-08-01 06:43 | XMS_ITS | Encounter Summary ---
:1965 Author Organization [facility] Address [address] [place] [address] Care Team Providers Name Role Phone Elsewhere, Pcp Primary Care Provider Unavailable Encounter Details Date Type Department Care Team Description 12/30/2021 Surgery RST SEBAS MORAN OR Cyrus Polk, ARTHROPLASTY RESECTION [address] [facility] [place] [address] 0001 [address] [facility] [phone] [place] [phone] Social History Tobacco Use Types Packs/Day Years [...] you attend tenriism or Patient refused 2021 sikhism services? Do [...] Comments Blood Pressure 119/74 12/30/2021 12:47 PM MIXOLOGIST Pulse 79 12/30/2021 12:47 PM MIXOLOGIST Temperature 36.8 ??C (98.2 ??F) 12/30/2021 11:22 AM MIXOLOGIST Respiratory Rate 20 12/30/2021 12:47 PM MIXOLOGIST Oxygen Saturation 99% 12/30/2021 12:47 PM MIXOLOGIST Inhaled Oxygen Concentration - - Weight 69.9 kg (154 lb 1.6 12/30/2021 11:22 AM oz) MIXOLOGIST Height 150.5 cm (4' 11.25) 12/30/2021 11:22 AM no shoe s/boots MIXOLOGIST Body Mass Index 30.86 12/30/2021 11:22 AM MIXOLOGIST documented in this encounter Discharge Summaries Dario Carrera M.D. - 01/01/2022 8:50 AM CST DISCHARGE SUMMARY BRIEF OVERVIEW Hospital: [facility] Discharge Provider: Cyrus Polk M.D. Primary Team: T Orthopedic Surgery - aJm Primary Care Providers: [...] RST ROEI OR DISCHARGE DISPOSITION Home-Health Care [facility] [place], [place] [6] ACTIVE ISSUES REQUIRING FOLLOW UP Active [...] were provided to the patient and caregiver(s). LOGIST documented in this encounter Discharge Instructions AttachmentsThe following attachments cannot be sent through Care Everywhere. Continuous Nerve-Block Infusion System: Often called a ???pain pump?? (Liberian) documented in this encounter Medications at Time [...] THC multivit-min/iron/folic/ Take 1 tablet by 0 [id number] (HAIR, SKIN AND mouth daily. NAILS ADVANCED [...] in dextrose, Infuse 50 mL (2 g 0 mL 0 02/202202/11/2022 iso-osm, (ROCEPHIN) 2 total) [...] mg by mouth 0 /12/202002/26/2022 at bedtime. cefTRIAXone (ROCEPHIN) 2 g. 0 [...] signs of local anesthetic systemic toxicity, occur. LOGIST Fatemeh Pena R.N. - 01/01/2022 5:28 PM [...] when she got up for the day. LOGIST Ruth Gonzalez PAna, D.P.T. - 01/01/2022 4:29 PM CST Physical [...] mask during therapy session: no Outcome Measures [facility] Inpatient Short Form: -[facility] Basic Mobility (V.2) How much help [...] steps with a railing?: A Little AM-[facility] Basic Mobility (V.2) Raw Score: 23 -[facility] Basic Mobility (V.2) Standardized Score: 50.88 Interpretation: Clinicians answer the -[facility] Inpatient Short Form based on observed [...] since it is not available [facility] by prescription. Barriers [...] (min): 23 min Ruth Gonzalez P.T., D.P.T. LOGIST Elvira Duncan R.N. - 01/01/2022 3:21 PM [...] educational pamphlet Continuous Nerve-Block Infusion System ( [id number]).?? Discussed at home removal of nervecatheter, signs of toxicity, and provided the 20/06 number to call with questions.?? All questions answered. On-Q infusion will end Wednesday 01/03 at 2230. Informed patient she may wait until Tuesday morning to remove if she is sleeping. Note OnQ will not be empty as running at 6ml/hr with fill of 550cc. She is aware of this. LOGIST Thao You L.I.C.S.W., M.S.W. - 01/01/2022 11:23 AM CST SUBJECTIVE Referral Data The patient was seen for ongoing discharge needs. A list of infusion options (that patient/family geographically resides or requests) has been provided to and reviewed with patient/family. Disclaimers: Financial disclosure provided informing patient of our ownership and financial relationship of the [facility]/home health & hospice agencies. Reviewed insurance [...] Selected Services Address Phone Fax Patient Preferred [facility] [address] [facility] [address], [place] [address] [phone] -- Contact: Intake NURSING: - Adjust the [...] draws will be managed by Outpatient Facility: [facility] Address: [address] [place] [address] Contact: Princess Jimenez will provide IV access [...] continue to follow. Joe Ervin, M.S.WBritton 01/01/2022 LOGIST Gucci Salvador M.D. - 01/01/2022 10:45 AM CST DEMOGRAPHIC INFORMATION [facility] Number:[phone] Patient Name: Angie Ashley Mosquera Service: Orthopedics Infectious Disease Consultation Service [...] questions answered to patient's satisfaction. Please page [phone] for questions. 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 [id number] Pamela Leonard PharmAlejandrina, R.Ph. - 01/01/2022 10:14 AM CST Pharmacist [...] regimen while on post-operative opioids Pamela Crawford PharmAlejandrina, R.Ph. [phone] Jose Guadalupe Washington M.D. - 01/01/2022 8:31 AM CST Infectious Diseases Orthopedic Surgery [facility] Consulting Service Progress Note SUBJECTIVE -No acute [...] Date/Time Bacteria / Mandi Culture, Blood #2 [[id number]] Collected: 12/31/21 1604 Lab Status: In process Specimen: Blood, Peripheral Draw Updated: 12/31/21 1651 Narrative: Received Bactec aerobic and Bactec anaerobic bottles Specimen Information: Specimen ID: [id number] Specimen Source: Blood, Peripheral Draw Specimen Comment: Specimen Source Site: Blood Specimen Collection Start Date: 12/31/2021 4:05 PM Specimen Received Date: 12/31/2021 4:51 PM Specimen ID: [id number] Specimen Source: Blood, Peripheral Draw Specimen Comment: Specimen Source Site: Blood Specimen Collection Start Date: 12/31/2021 4:05 PM Specimen Received Date: 12/31/2021 4:51 PM Specimen ID: [id number] Specimen Source: Blood, Peripheral Draw Specimen Comment: Specimen Source Site: Blood Specimen Collection Start Date: 12/31/2021 4:04 PM Specimen Received Date: 12/31/2021 4:51 PM Bacteria / Mandi Culture, Blood #1 [[id number]] Collected: 12/31/21 1552 Lab Status: In process Specimen: Blood, Peripheral Draw Updated: 12/31/21 1651 Narrative: Received Bactec aerobic and Bactec anaerobic bottles Specimen Information: Specimen ID: [id number] Specimen Source: Blood, Peripheral Draw Specimen Comment: Specimen Source Site: Blood Specimen Collection Start Date: 12/31/2021 3:52 PM Specimen Received Date: 12/31/2021 4:50 PM Specimen ID: [id number] Specimen Source: Blood, Peripheral Draw Specimen Comment: Specimen Source Site: Blood Specimen Collection Start Date: 12/31/2021 3:53 PM Specimen Received Date: 12/31/2021 4:50 PM Specimen ID: [id number] Specimen Source: Blood, Peripheral Draw Specimen Comment: Specimen Source Site: Blood Specimen Collection Start Date: 12/31/2021 3:53 PM Specimen Received Date: 12/31/2021 4:50 PM Bacteria Cult, Aerobe / Anaerobe+Susc [[id number]] Collected: 12/30/21 1411 Lab Status: Preliminary result Specimen: Shoulder, Left Updated: 12/31/21 1601 Bacteria Cult, Aerobe/Anaerobe+Susc No growth to date. Narrative: Bacterial Culture: Placed in Bactec aerobic and Bactec anaerobic bottles Bacteria Cult, Aerobe / Anaerobe+Susc [[id number]] Collected: 12/30/21 1405 Lab Status: Preliminary result Specimen: Synovial Fluid, Left Shoulder Updated: 12/31/21 1601 Bacteria Cult, Aerobe/Anaerobe+Susc No growth to date. Narrative: Bacterial Culture: Placed in Bactec aerobic and Bactec anaerobic bottles Bacteria Cult, Aerobe / Anaerobe+Susc [[id number]] Collected: 12/30/21 1404 Lab Status: Preliminary result Specimen: Shoulder, Left Updated: 12/31/21 1601 Bacteria Cult, Aerobe/Anaerobe+Susc No growth to date. Narrative: Bacterial Culture: Placed in Bactec aerobic and Bactec anaerobic bottles Bacteria Cult, Aerobe / Anaerobe+Susc [[id number]] Collected: 12/30/21 1403 Lab Status: Preliminary result Specimen: Shoulder, Left Updated: 12/31/21 1601 Bacteria Cult, Aerobe/Anaerobe+Susc No growth to date. Narrative: Bacterial Culture: Placed in Bactec aerobic and Bactec anaerobic bottles Bacteria Cult, Aerobe / Anaerobe+Susc [[id number]] Collected: 12/30/21 1403 Lab Status: Preliminary result Specimen: Shoulder, Left Updated: 12/31/21 1601 Bacteria Cult, Aerobe/Anaerobe+Susc No growth to date. Narrative: Bacterial Culture: Placed in Bactec aerobic and Bactec anaerobic bottles SARS Coronavirus 2, Molecular Detection, PCR, Varies Asymptomatic [[id number]] Collected: 12/29/21 1111 Lab Status: Final result [...] ----ADDITIONAL INFORMATION---- This RT-PCR test using the TGV Software SARS-CoV-2 Assay ( [employer]) performed on the TGV Software Two Module System has received Emergency Use Authorization (EUA) by the U.S. Food and Drug Administration, and is modified from the scientific illustrator's instructions with a bridging study. Performance characteristics were verified by [facility] in a manner consistent with CLIA requirements. Visit the CDC website: https://www.cdc.gov/coronavirus/ for the most recent guidelines on Coronavirus testing. Fact Sheet for Healthcare Providers: https://www.fda.gov/media/263405/download Fact Sheet for Patients: https://www.fda.gov/media/014260/download ASSESSMENT / PLAN 56-year-old female with a [...] is consistent with aspiration results from original [facility] evaluation which is likely field sales representative of the culprit organism causing [...] of Infectious Diseases OPAT monitoring program at [phone] after dismissal. Primary service to follow labs while patient is hospitalized. [facility] pharmacist to adjust dosing after dismissal 4. [...] off at this time. Please page [facility] [employer] service pager at [phone] with any questions. ?? Jose Guadalupe Nixon [...] Overall Comments Patient to dismiss with OnQ. LOGIST Dario Carrera M.D. - 01/01/2022 7:00 AM [...] - Date/Time Bacteria Cult, Aerobe / Anaerobe+Susc [[id number]] Collected: 12/30/21 1411 Lab Status: In process Specimen: Shoulder, Left Updated: 12/30/21 1540 Narrative: Bacterial Culture: Placed in Bactec aerobic and Bactec anaerobic bottles Bacteria Cult, Aerobe / Anaerobe+Susc [[id number]] Collected: 12/30/21 1405 Lab Status: In process Specimen: Synovial Fluid, Left Shoulder Updated: 12/30/21 1519 Narrative: Bacterial Culture: Placed in Bactec aerobic and Bactec anaerobic bottles Bacteria Cult, Aerobe / Anaerobe+Susc [[id number]] Collected: 12/30/21 1404 Lab Status: In process Specimen: Shoulder, Left Updated: 12/30/21 1536 Narrative: Bacterial Culture: Placed in Bactec aerobic and Bactec anaerobic bottles Bacteria Cult, Aerobe / Anaerobe+Susc [[id number]] Collected: 12/30/21 1403 Lab Status: In process Specimen: Shoulder, Left Updated: 12/30/21 1533 Narrative: Bacterial Culture: Placed in Bactec aerobic and Bactec anaerobic bottles Bacteria Cult, Aerobe / Anaerobe+Susc [[id number]] Collected: 12/30/21 1403 Lab Status: In process Specimen: Shoulder, Left Updated: 12/30/21 1538 Narrative: Bacterial Culture: Placed in Bactec aerobic and Bactec anaerobic bottles SARS Coronavirus 2, Molecular Detection, PCR, Varies Asymptomatic [[id number]] Collected: 12/29/21 1111 Lab Status: Final result [...] ----ADDITIONAL INFORMATION---- This RT-PCR test using the TGV Software SARS-CoV-2 Assay ( [employer] performed on the TGV Software Two Module System has received Emergency Use Authorization (EUA) by the U.S. Food and Drug Administration, and is modified from the scientific illustrator's instructions with a bridging study. Performance characteristics were verified by [facility] in a manner consistent with CLIA requirements. Visit the CDC website: https://www.cdc.gov/coronavirus/ for the most recent guidelines on Coronavirus testing. Fact Sheet for Healthcare Providers: https://www.fda.gov/media/963698/download Fact Sheet for Patients: https://www.fda.gov/media/844042/download ASSESSMENT / PLAN IMPRESSION/REPORT/PLAN #1 Status post [...] 6 am, please page Arthur Smallwood at [facility] [phone] LOGIST Trey Rdz R.N. - 12/31/2021 7:34 AM CST Post Anesthesia Assessment Note Patient: Angie J. Demetri General Info Post-procedure day: 1 Follow-up type: [...] with onq pump later today or tomorrow LOGIST Jey Matos D.O. - 12/31/2021 6:53 AM [...] - Date/Time Bacteria Cult, Aerobe / Anaerobe+Susc [[id number]] Collected: 12/30/21 1411 Lab Status: In process Specimen: Shoulder, Left Updated: 12/30/21 1540 Narrative: Bacterial Culture: Placed in Bactec aerobic and Bactec anaerobic bottles Bacteria Cult, Aerobe / Anaerobe+Susc [[id number]] Collected: 12/30/21 1405 Lab Status: In process Specimen: Synovial Fluid, Left Shoulder Updated: 12/30/21 1519 Narrative: Bacterial Culture: Placed in Bactec aerobic and Bactec anaerobic bottles Bacteria Cult, Aerobe / Anaerobe+Susc [[id number]] Collected: 12/30/21 1404 Lab Status: In process Specimen: Shoulder, Left Updated: 12/30/21 1536 Narrative: Bacterial Culture: Placed in Bactec aerobic and Bactec anaerobic bottles Bacteria Cult, Aerobe / Anaerobe+Susc [[id number]] Collected: 12/30/21 1403 Lab Status: In process Specimen: Shoulder, Left Updated: 12/30/21 1533 Narrative: Bacterial Culture: Placed in Bactec aerobic and Bactec anaerobic bottles Bacteria Cult, Aerobe / Anaerobe+Susc [[id number]] Collected: 12/30/21 1403 Lab Status: In process Specimen: Shoulder, Left Updated: 12/30/21 1538 Narrative: Bacterial Culture: Placed in Bactec aerobic and Bactec anaerobic bottles SARS Coronavirus 2, Molecular Detection, PCR, Varies Asymptomatic [[id number]] Collected: 12/29/21 1111 Lab Status: Final result [...] ----ADDITIONAL INFORMATION---- This RT-PCR test using the TGV Software SARS-CoV-2 Assay ( [employer]) performed on the TGV Software Two Module System has received Emergency Use Authorization (EUA) by the U.S. Food and Drug Administration, and is modified from the scientific illustrator's instructions with a bridging study. Performance characteristics were verified by [facility] in a manner consistent with CLIA requirements. Visit the CDC website: https://www.cdc.gov/coronavirus/ for the most recent guidelines on Coronavirus testing. Fact Sheet for Healthcare Providers: https://www.fda.gov/media/329223/download Fact Sheet for Patients: https://www.fda.gov/media/097363/download ASSESSMENT / PLAN IMPRESSION/REPORT/PLAN #1 Status post [...] Jey Matos, DO Shoulder & Elbow Fellow [facility] Orthopaedic Surgery For any questions or concerns from 6 am until 6 pm, please page Jam service For urgent matters from 6 pm until 6 am, please page Ortho House at [facility] [phone] Trey Phan R.N. - 12/30/2021 4:39 PM [...] at home. She is registered with the state of [place] for medical cannabis and she gets her meds from a [place] dispensary. She was told to leave her [...] Take 150 mg by mouth every morning. vazeugmual-fwfkzcaujwfbn-hewp (ESGIC) 50-325-40 mg per tablet Past Week [...] by mouth 2 (two) times a day. LOGIST documented in this encounter Procedure Notes Soraida [...] to release the adhesive from the skin. http://[employer]products/secureportiv LOGIST documented in this encounter Consult Notes Ruth [...] Right Lives With: Alone Receives Help From: warehouse attendant, Family, Friend(s) ADL Assistance: Required assistance ADL Assistance Comments: Gets help from COSTUMER ASSISTANT for her bath/shower and for her meals IADL/Homemaking Assistance: Required assistance IADL/Homemaking Assistance Comments: Gets help for housecleaning Driving: Independent Occupational Role: On disability Prior Mobility/Functional Transfers Level of [place]: Modified independent Gait Devices/Wheelchair Used: Cane Gait [...] session with call light in reach and COSTUMER ASSISTANT present, all needs metand questions answered. Contact monitoring: PPE used during therapy: Therapist was wearing the following PPE throughout entire session: surgicalmask and eye protection Patient was wearing a mask during therapy session: yes, when out of room Outcome Measures -[facility] Inpatient Short Form: AM-[facility] Basic Mobility (V.2) How much help [...] steps with a railing?: A Lot -[facility] Basic Mobility (V.2) Raw Score: 17 -[facility] Basic Mobility (V.2) Standardized Score: 39.67 Interpretation: Clinicians answer the -[facility] Inpatient Short Form based on observed [...] (min): 36 min Ruth Gonzalez P.T., D.P.T. LOGIST Thao You L.I.C.S.Erma, M.S.W. - 12/31/2021 2:04 PM CSTAssociated Order(s): IP CONSULT TO CARE MANAGEMENT; IP CONSULT TO CARE MANAGEMENT; IP CONSULT TO CARE MANAGEMENT Psychosocial Assessment SUBJECTIVE DEMOGRAPHIC INFORMATION Person(s) present during interview: Patient Primary care clinic and provider: [facility] Primary Language: Liberian Legal Information: Legal decision maker for self [...] / Household Status: Patient resides alone in [place], [place]. She lives in a two bedroom apartment. Patient has four adultchildren two of whom live in [place]. Patient son Rafal lives next door to patient. Support Systems: Family members, Friends/neighbors. We have not received permission to contact them. Primary caregiver: Self Accompanied by/Relationship: None Support System: Family members, Friends/neighbors Spirituality / Lutheran / Culture: , None History: No Education: [...] Behavior: Oriented Communication: Reads, writes and speaks Liberian It is anticipated that the patient will need assistance with .Dressing,bathing, meal prep, housekeeping, shopping ASSISTIVE DEVICES Patient has the following equipment: Eyeglasses, Dentures upper, Dentures lower, cane, walker Patient anticipates potentially needing the following additional equipment: None Transportation needs: Independent to drive, support from family and friends SERVICES REQUESTED Infusion therapy [employer] Formal and Informal Resources: Patient receives home health aid services three times per week and senior living visit one time every two weeks through [facility]. FINANCES/INSURANCE Primary insurance: MEDICARE A AND B Secondary insurance: MEDICA ADVANCE DIRECTIVES Advance Directive: Patient does not have advance directive, does not want information DISCHARGE PLANNING Patient is planning on returning home upon her discharge. She currently receives home health aid services and senior living through [facility]. Patient also has support from a [...] good support group consisting of family, friends andbairoil health services through [facility]. INTERVENTIONS ?? Psychosocial assessment ?? Rapport building ?? Education on coping with chronic pain. PLAN ?? Social work will continue to follow for discharge planning and support. ?? Social work did speak with Pat at [facility] to confirm home health services. ?? Social work will work on infusion therapy referrals as well as home health/outpatient picc site care and labs. Anticipated barriers to the transition of care/plan: None Joe Ervin, M.S.W. 12/31/2021 LOGIST Jose Guadalupe Nixon M.D. - 12/31/2021 7:31 AM CSTAssociated Order(s): IP CONSULT TO INFECTIOUS DISEASES Infectious Diseases Orthopedic Surgery [facility] Consulting Service Consult Note SUBJECTIVE REASON FOR [...] on OSH AST. She presented to [facility] (unclear if on antibiotics) for further evaluation given persistent L shoulder pain 08/2021 prompting aspiration (09/25/21) which revealed elevated TNC (20066) with 81% PMNs with cultures positive for1 [...] debridement. The patient was subsequently admitted to [facility] for further management. Intraoperative cultures [...] - Date/Time Bacteria Cult, Aerobe / Anaerobe+Susc [[id number]] Collected: 12/30/21 1411 Lab Status: In process Specimen: Shoulder, Left Updated: 12/30/21 1540 Narrative: Bacterial Culture: Placed in Bactec aerobic and Bactec anaerobic bottles Bacteria Cult, Aerobe / Anaerobe+Susc [[id number]] Collected: 12/30/21 1405 Lab Status: In process Specimen: Synovial Fluid, Left Shoulder Updated: 12/30/21 1519 Narrative: Bacterial Culture: Placed in Bactec aerobic and Bactec anaerobic bottles Bacteria Cult, Aerobe / Anaerobe+Susc [[id number]] Collected: 12/30/21 1404 Lab Status: In process Specimen: Shoulder, Left Updated: 12/30/21 1536 Narrative: Bacterial Culture: Placed in Bactec aerobic and Bactec anaerobic bottles Bacteria Cult, Aerobe / Anaerobe+Susc [[id number]] Collected: 12/30/21 1403 Lab Status: In process Specimen: Shoulder, Left Updated: 12/30/21 1533 Narrative: Bacterial Culture: Placed in Bactec aerobic and Bactec anaerobic bottles Bacteria Cult, Aerobe / Anaerobe+Susc [[id number]] Collected: 12/30/21 1403 Lab Status: In process Specimen: Shoulder, Left Updated: 12/30/21 1538 Narrative: Bacterial Culture: Placed in Bactec aerobic and Bactec anaerobic bottles SARS Coronavirus 2, Molecular Detection, PCR, Varies Asymptomatic [[id number]] Collected: 12/29/21 1111 Lab Status: Final result [...] ----ADDITIONAL INFORMATION---- This RT-PCR test using the TGV Software SARS-CoV-2 Assay ( [employer]) performed on the TGV Software Two Module System has received Emergency Use Authorization (EUA) by the U.S. Food and Drug Administration, and is modified from the scientific illustrator's instructions with a bridging study. Performance characteristics were verified by [facility] in a manner consistent with CLIA requirements. Visit the CDC website: https://www.cdc.gov/coronavirus/ for the most recent guidelines on Coronavirus testing. Fact Sheet for Healthcare Providers: https://www.fda.gov/media/485261/download Fact Sheet for Patients: https://www.fda.gov/media/981357/download ASSESSMENT / PLAN 56-year-old female with a [...] is consistent with aspiration results from original [facility] evaluation which is likely field sales representative of the culprit organism causing [...] IV antimicrobial therapy. Treatment plan reviewed with Demetri, who expressed understanding. All questions answered to patient's satisfaction. This case was discussed with Dr. Salvador. We will follow along closely. Please page the [facility]-ID service pager at [phone] with questions. Thank you for the consultation. Jose Guadalupe Nixon M.D. LOGIST Associated attestation - Gucci Salvador M.D. - 12/31/2021 6:07 PM MIXOLOGIST DEMOGRAPHIC INFORMATION Clinic Number:[phone] Patient Name: Angie [...] prescriptions, and Oxycodone. Oxycodone filled here at [facility] pharmacy. Patient going home with an interscalene block OnQ pump. Transportation provided by her son. LOGIST Fanny Sifuentes R.N. - 12/31/2021 11:00 PM [...] Nasal mucous membranes remain intact Outcome: Progressing LOGIST Ezequiel Hernandez R.N. - 12/30/2021 10:27 PM [...] staff assistance to bathroom. Navin Hernandez R.N. LOGIST documented in this encounter OR Notes Op Note - Cyrus Polk M.D. - 12/30/2021 2:50 PM CST STAFF: Cyrus Polk M.D. RESIDENT: Dario Carrera M.D. PRE-OPERATIVE DIAGNOSIS Left infected reverse arthroplasty. POST-OPERATIVE DIAGNOSIS Left infected reverse arthroplasty. A research study assistant was necessary for one or more [...] Cyrus Polk M.D. CT CT Job ID: [id number] LOGIST documented in this encounter Miscellaneous Notes Hospital [...] and pain is controlled on oral medications. LOGIST documented in this encounter Plan of Treatment Scheduled Referrals Name Type Priority Associated Diagnoses Order [facility] Outpatient Referral Routine Direct Infection Of Ordered: Health Referral Left Shoulder In 02/04/20 22 Infectious And Parasitic Diseases Classified Elsewhere (HCC) documented as of this encounter Procedures Procedure Name Priority Date/Time Associated Comments Diagnosis PLACE PERIPHERALLY Routine 01/01/2022 12:11 Resul ts for this INSERTED CENTRAL PM MIXOLOGIST procedure a re in CATHETER (PICC) the results section. REMOTE OXIMETRY Routine 12/31/2021 5:23 MONITORING CONT. PM MIXOLOGIST REMOTE OXIMETRY Routine 12/31/2021 5:23 MONITORING CONT. PM MIXOLOGIST BACTERIA / MANDI Routine 12/31/2021 4:04 Result s for this CULTURE, BLOOD PM MIXOLOGIST procedure are in the results section. BACTERIA / MANDI Routine 12/31/2021 3:52 Result s for this CULTURE, BLOOD PM MIXOLOGIST procedure are in the results section. ADULT OXYGEN THERAPY Routine 12/31/2021 8:01 AM MIXOLOGIST CBC WITH Routine 12/31/2021 4:25 Results for this DIFFERENTIAL, B AM MIXOLOGIST procedure ar e in the results section. BASIC METABOLIC Routine 12/31/2021 4:25 Results f or this PANEL, S/P AM MIXOLOGIST procedure are i n the results section. ADULT OXYGEN THERAPY Routine 12/30/2021 8:01 PM MIXOLOGIST ADULT OXYGEN THERAPY Routine 12/30/2021 5:12 PM MIXOLOGIST ADULT OXYGEN THERAPY Routine 12/30/2021 5:12 PM MIXOLOGIST ADULT OXYGEN THERAPY Routine 12/30/2021 3:46 PM MIXOLOGIST ADULT OXYGEN THERAPY Routine 12/30/2021 3:46 PM MIXOLOGIST DX SHOULDER LEFT 1 RAD - Timed (for 12/30/2021 3:41 Re sults for this VIEW specific PM MIXOLOGIST procedure are i n dates/times) the results section. SURGICAL PATHOLOGY, Routine 12/30/2021 2:15 Shoulder Joint Res ults for this [facility]OZEN LAB PM MIXOLOGIST Disorder Left procedure are in the results section. BACTERIA CULT, Routine 12/30/2021 2:11 Results fo r this AEROBE/ANAEROBE+SUSC PM MIXOLOGIST procedu re are in the results section. BACTERIA CULT, Routine 12/30/2021 2:05 Results fo r this AEROBE/ANAEROBE+SUSC PM MIXOLOGIST procedu re are in the results section. BACTERIA CULT, Routine 12/30/2021 2:04 Results fo r this AEROBE/ANAEROBE+SUSC PM MIXOLOGIST procedu re are in the results section. BACTERIA CULT, Routine 12/30/2021 2:03 Results fo r this AEROBE/ANAEROBE+SUSC PM MIXOLOGIST procedu re are in the results section. BACTERIA CULT, Routine 12/30/2021 2:03 Results fo r this AEROBE/ANAEROBE+SUSC PM MIXOLOGIST procedu re are in the results section. ARTHROPLASTY 12/30/2021 12:34 Shoulder Joint RESECTION SHOULDER PM MIXOLOGIST Disorder Left documented in this encounter Results Place peripherally inserted central catheter (PICC) (01/01/2022 12:11 PM MIXOLOGIST) Narrative MMODAL - 01/01/2022 12:11 PM MIXOLOGIST Soraida Dick R.N. ? 01/01/2022 12:13 PM [...] to release the adhesive from the skin. [email or web address] Dario Carrera M.D. PROCEDURE/MINOR SURGICAL ORD ERABLES Performing Organization Address City/State/ZIP Code Phon e Number MMODAL MMODAL NA Bacteria / Mandi Culture, Blood #2 (12/31/2021 4:04 PM MIXOLOGIST) [facility] gist Method Time Signature Bacteria/Valerie No growth 01/05/2022 DTL da Culture, after 5 5:02 PM MIXOLOGIST Blood days of incubation. Specimen (Source) Anatomical Collection Method Collection Time Re ceived Time Location / / Volume Laterality Blood (Blood, 12/31/2021 4:04 12/31/2021 4:51 Peripheral Draw) PM MIXOLOGIST PM MIXOLOGIST Comment: Specimen Source Site: Blood Narrative [facility] - 01/05/2022 5:02 PM MIXOLOGIST Received Bactec aerobic and Bactec anaer obic bottles Dario Carrera M.D. LAB MICROBIOLOGY - GENERAL O PATERASARAH Performing Organization Address City/[facility] Phon e Number [facility] - [address] [place], [place] [address] [place] [phone] Bacteria / Mandi Culture, Blood #1 (12/31/2021 3:52 PM MIXOLOGIST) [facility] Method Time Signature Bacteria/Valerie No growth 01/05/2022 DT da Culture, after 5 5:02 PM MIXOLOGIST Blood days of incubation. Specimen (Source) Anatomical Collection Method Collection Time Re ceived Time Location / / Volume Laterality Blood (Blood, 12/31/2021 3:52 12/31/2021 4:50 Peripheral Draw) PM MIXOLOGIST PM MIXOLOGIST Comment: Specimen Source Site: Blood Narrative [facility] - 01/05/2022 5:02 PM MIXOLOGIST Received Bactec aerobic and Bactec anaer obic bottles Dario Carrera M.D. LAB MICROBIOLOGY - GENERAL O MARY Performing Organization Address City/[facility] Phon e Number [facility] - [address] [place] [address] [place] [address] (ABNORMAL) CBC with Differential, Blood (12/31/2021 4:25 AM MIXOLOGIST) [facility] Method Time Signature Hemoglobin 8.9 (L) 11.6 - 12/31/2021 DTL 15.0 g/dL 5:15 AM MIXOLOGIST Hematocrit 27.3 (L) 35.5 - 12/31/2021 DTL 44.9 % 5:15 AM MIXOLOGIST Erythrocytes 3.26 (L) 3.92 - 12/31/2021 DTL 5.13 5:15 AM MIXOLOGIST x10(12)/L MCV 83.7 78.2 - 12/31/2021 DTL 97.9 fL 5:15 AM MIXOLOGIST RBC Distrib Width 19.6 (H) 12.2 - 12/31/2021 DTL 16.1 % 5:15 AM MIXOLOGIST Platelet Count 274 157 - 371 12/31/2021 DTL x10(9)/L 5:15 AM MIXOLOGIST Leukocytes 6.6 3.4 - 9.6 12/31/2021 DTL x10(9)/L 5:15 AM MIXOLOGIST Neutrophils 4.91 1.56 - 12/31/2021 DTL 6.45 5:15 AM MIXOLOGIST x10(9)/L Lymphocytes 1.10 0.95 - 12/31/2021 DTL 3.07 5:15 AM MIXOLOGIST x10(9)/L Monocytes 0.61 0.26 - 12/31/2021 DTL 0.81 5:15 AM MIXOLOGIST x10(9)/L Eosinophils <0.03 0.03 - 12/31/2021 DTL 0.48 5:15 AM MIXOLOGIST x10(9)/L Basophils <0.03 0.01 - 12/31/2021 DTL 0.08 5:15 AM MIXOLOGIST x10(9)/L Specimen Anatomical Collection Method Collection Time Receive d Time (Source) Location / / Volume Laterality Blood (Blood, 12/31/2021 4:25 AM 12/31/19 5:04 Venous) MIXOLOGIST AM MIXOLOGIST Dario Carrera M.D. LAB BLOOD ADD-ON Performing Organization Address City/State/ZIP Code Phon e Number [facility] - [address] [place] [phone] [facility] [place] [address] [facility] [place] [address] [facility] (ABNORMAL) Basic Metabolic Panel (12/31/2021 4:25 AM MIXOLOGIST) P athologist Signature Potassium, S 4.4 3.6 - 5.2 12/31/2021 DTL mmol/L 5:35 AM MIXOLOGIST Sodium, S 134 (L) 135 - 145 12/31/2021 DTL mmol/L 5:35 AM MIXOLOGIST Chloride, S 103 98 - 107 12/31/2021 DTL mmol/L 5:35 AM MIXOLOGIST Bicarbonate, S 22 22 - 29 12/31/2021 DTL mmol/L 5:35 AM MIXOLOGIST Anion Gap 9 7 - 15 12/31/2021 DTL 5:35 AM MIXOLOGIST BUN (Blood Urea 21 6 - 21 12/31/2021 DTL Nitrogen), S mg/dL 5:35 AM MIXOLOGIST Creatinine 0.74 0.59 - 12/31/2021 DTL 1.04 mg/dL 5:35 AM MIXOLOGIST eGFR-Non 90 >=60 12/31/2021 DTL Black/ mL/min/BSA 5:35 AM MIXOLOGIST German Comment: ----ADDITIONAL INFORMATION---- Estimated GFR calculated using the 2009 CKD_EPI creatinine equation. eGFR-Black/ >90 >=60 mL/min/BSA 2021 5:35 AM MIXOLOGIST DTL Comment: ----ADDITIONAL INFORMATION---- Estimated GFR calculated using the 2009 CKD_EPI creatinine equation. Calcium, Total, S 8.7 8.6 - 10.0 mg/dL 12/31/2021 5:35 AM MIXOLOGIST DTL Glucose, S 138 70 - 140 mg/dL 12/31/2021 5:35 AM MIXOLOGIST D TL Specimen Anatomical Collection Method Collection Time Receive d Time (Source) Location / / Volume Laterality Blood (Blood, 12/31/2021 4:25 AM 12/31/19 5:18 Venous) MIXOLOGIST AM MIXOLOGIST Dario Carrera M.D. LAB BLOOD ADD-ON Performing Organization Address City/State/ZIP Code Phon e Number [facility] - [address] [place], [place] [address] [facility] [place] [address] [facility] [place] [address] DX Shoulder Left 1 View (12/30/2021 3:41 PM MIXOLOGIST) Anatomical Region Laterality Modality Upper Extremity, Shoulder, Musculoskeletal RST LOS, Left Computed Radiography Musculoskeletal ARZ LOS, Muskuloskeletal FLA LOS Specimen (Source) Anatomical Collection Method Collection Time Re ceived Time Location / / Volume Laterality 12/30/2021 3:54 PM MIXOLOGIST Impressions 12/30/2021 3:59 PM MIXOLOGIST Postoperative changes of a left shoulder arthroplasty resection and placement of an antibiotic spacer. Negat lalo for postoperative purposes. Narrative 12/30/2021 3:59 PM MIXOLOGIST EXAM: ??DX SHOULDER LEFT 1 VIEW Procedure Note Timothy Resendiz M.D. - 12/30/2021Forma tting of this note might be different from the original. EXAM: DX SHOULDER LEFT 1 VIEW IMPRESSION: Postoperative changes of a left shoulder arthroplasty resection and placement of an antibiotic spacer. Negat lalo for postoperative purposes. Dario Carrera M.D. IMG DIAGNOSTIC IMAGING [facility] Surgical Pathology, Frozen Lab (12/30/2021 2:15 PM MIXOLOGIST) Component Value Ref Test Analysis Performed At [facility] [employer] Range Method Time Signature 01/01/2022 METH 8:22 AM MIXOLOGIST Participated in Kelly Howard, 01/01/2022 M[facility] the D.O.-Pathology 8:22 AM MIXOLOGIST Interpretation Resident Report Solomon Marcum M.D. 01/01/2022 METH electronically 8:22 AM MIXOLOGIST signed by I verify that I have examined all relevant slides/materials for the specimen(s) and rendered or confirmed the diagnosis. Frozen A. ??Synovium, left shoulder, excision: ??Synovial tissue 01/01/2022 M[facility] Intraoperative with 8:22 AM MIXOLOGIST Report acute inflammation (>5 neutrophils/high power field). Signed by Solomon Marcum M.D. 12/31/2021 8:17 AM Gross Description A. ??Received fresh labeled left shoulder is a 1.4 x 0.9 x 01/01/2022 METH 0.4 cm aggregate of red and campbell fibrous tissue, which is 8:22 AM MIXOLOGIST soft. ??All submitted for frozen and permanent sections. Grossed by Nikki Gallardo. Block Summary A Left shoulder 01/01/2022 M[facility] A1 Left shoulder-frozen 8:22 AM MIXOLOGIST Interpretation FINAL DIAGNOSIS 01/01/2022 METH 8:22 AM MIXOLOGIST A. ??Synovium, left shoulder, excision: ??Synovial tissue with acute inflammation (>5 neutrophils/high power field). Specimen (Source) Anatomical Collection Method Collection Time Re ceived Time Location / / Volume Laterality Tissue (Shoulder, 12/30/2021 2:15 PM Left) MIXOLOGIST Narrative This result has an attachment that is no t available. Cyrus Polk M.D. LAB SURG PATH ORDERABLES Performing Organization Address City/State/ZIP Code Phon e Number [facility] - [address] [place], [place] [address] [facility] [place] [address] [facility] [place] [address] Bacteria Cult, Aerobe / Anaerobe+Susc (12/30/2021 2:11 PM MIXOLOGIST) [facility] Method Time Signature Bacteria Cult, No growth 01/13/2022 DTL Aerobe/Anaerob after 14 4:02 PM MIXOLOGIST e+Susc days of incubation. Specimen Anatomical Collection Method Collection Time Receive d Time (Source) Location / / Volume Laterality Shoulder, Left 12/30/2021 2:11 PM 022 3:38 MIXOLOGIST PM MIXOLOGIST Comment: Specimen Source Site: Tissue #4 Narrative [facility] - 01/13/2022 4:02 PM MIXOLOGIST Bacterial Culture: Placed in Bactec aero bic and Bactec anaerobic bottles Cyrus Polk M.D. LAB MICROBIOLOGY - GENERAL O RDERABLES Performing Organization Address City/State/ZIP Code Phon e Number [facility] - [facility] [address] [place], [place] [address] [facility] [place] [address] [facility] [place] [address] (ABNORMAL) Bacteria Cult, Aerobe / Anaerobe+Susc (12/30/2021 2:05 PM MIXOLOGIST) Component Value Ref Test Analysis Performed At [facility] [employer] Range Method Time Signature Bacteria STAPHYLOCOCCUS EPIDERMIDIS 01/11/2022 DT L Cult, Growth after 4 days 7:55 AM MIXOLOGIST Aerobe/Anaero (A) be+Susc Comment: Semi-Urgent Result. Semi-Urgent This is a semi-urgent result [facility] - () [facility] Specimen Anatomical Collection Method Collection Time Receive d Time (Source) Location / / Volume Laterality Synovial Fluid, 12/30/2021 2:05 PM 2021 3:17 Left Shoulder MIXOLOGIST PM MIXOLOGIST Comment: Specimen Source Site: Fluid Narrative [facility] - 01/11/2022 7:55 AM MIXOLOGIST Bacterial Culture: Placed in Bactec aero bic [...] - GENERAL O MARY Performing Organization Address [facility] Phon e Number [facility] - [address] [place] [address] Bacteria Cult, Aerobe / Anaerobe+Susc (12/30/2021 2:04 PM M[facility]OLOGIST) [facility] Signature Bacteria Cult, No growth 01/13/2022 [facility] Aerobe/Anaerob after 14 4:02 PM MIXOLOGIST e+Susc days of incubation. Specimen Anatomical Collection Method Collection Time Receive d Time (Source) Location / / Volume Laterality Shoulder, Left 12/30/2021 2:04 PM 022 3:34 MIXOLOGIST PM MIXOLOGIST Comment: Specimen Source Site: Tissue #3 Narrative [facility] - 01/13/2022 4:02 PM MIXOLOGIST Bacterial Culture: Placed in Bactec aero bic and Bactec anaerobic bottles Cyrus Polk M.D. LAB MICROBIOLOGY - GENERAL O MARY Performing Organization Address City/[facility] Phon e Number [facility] - [address] Bacteria Cult, Aerobe / Anaerobe+Susc (12/30/2021 2:03 PM MIXOLOGIST) [facility] Method Time Signature Bacteria Cult, No growth 01/13/2022 DTL Aerobe/Anaerob after 14 4:02 PM MIXOLOGIST e+Susc days of incubation. Specimen Anatomical Collection Method Collection Time Receive d Time (Source) Location / / Volume Laterality Shoulder, Left 12/30/2021 2:03 PM 022 3:37 MIXOLOGIST PM MIXOLOGIST Comment: Specimen Source Site: Tissue #2 Narrative [facility] - 01/13/2022 4:02 PM MIXOLOGIST Bacterial Culture: Placed in Bactec aero bic and Bactec anaerobic bottles Cyrus Polk M.D. LAB MICROBIOLOGY - GENERAL O RDSONIA Performing Organization Address City/[facility] Phon e Number [facility] - [address] Bacteria Cult, Aerobe / Anaerobe+Susc (12/30/2021 2:03 PM MIXOLOGIST) [facility] Method Time Signature Bacteria Cult, No growth 01/13/2022 DTL Aerobe/Anaerob after 14 4:02 PM MIXOLOGIST e+Susc days of incubation. Specimen Anatomical Collection Method Collection Time Receive d Time (Source) Location / / Volume Laterality Shoulder, Left 12/30/2021 2:03 PM 022 3:31 MIXOLOGIST PM MIXOLOGIST Comment: Specimen Source Site: Tissue #1 Narrative [facility] - 01/13/2022 4:02 PM MIXOLOGIST Bacterial Culture: Placed in Bactec aero bic and Bactec anaerobic bottles Cyrus Polk M.D. LAB MICROBIOLOGY - GENERAL O RDSONIA Performing Organization Address City/State/[facility] Phon e Number [facility] - [address] [place], [place] [address] [place], [place] [id number] [place] [address] documented in this encounter Visit Diagnoses Diagnosis [...] tablet 1,000 mg Given 01/01/2022 11:36 AM MIXOLOGIST 1,00 0 mg (TYLENOL) 1,000 mg, oral, Every 6 hours, First dose on Tue12/30/21 at 1800 Given 01/01/2022 6:28 AM MIXOLOGIST 1,000 mg Given 12/31/2021 11:51 PM MIXOLOGIST 1,000 mg albuterol nebulizer solution 2.5 mg Given 12/31/2021 4:44 PM MIXOLOGIST 2.5 mg 2.5 mg, nebulization, Every 6 hours PRN, wheezing, Starting on Tue12/30/21 at 1711, Albuterol nebs were interchanged for albuterol/levalbuterol MDI (same frequency) atorvastatin tablet 80 mg (LIPITOR) Given 12/31/2021 8:57 PM MIXOLOGIST 80 mg 80 mg, oral, Daily at bedtime, First dose on Tue12/30/21 at 2100 Given 12/30/2021 9:55 PM MIXOLOGIST 80 mg benzonatate capsule 100 mg (TESSALON PER LES) Given 01/01/2022 3:10 AM MIXOLOGIST 100 mg 100 mg, oral, 3 times daily PRN, cough, Starting on Tue12/31/21 at 1702, Swallow whole. Do NOT crush, chew or open capsule. Given 12/31/2021 5:39 PM MIXOLOGIST 100 mg bupivacaine PF 0.2 % 550 mL in NaCl New Bag 01/01/2022 3:15 PM MIXOLOGIST 6 mL/hr 6 mL/hr 0.9% On-Q pain pump (CB004) 6 mL/hr, nerve catheter, Continuous, Starting on Tue01/01/22 at 1500, PACU & Post-Op, Location: Nerve Catheter Location, Nerve Catheter Location: Interscalene, Device: On-Q Pump bupivacaine PF 0.2 % in Rate/Dose Verify 01/01/2022 1:00 AM MIXOLOGIST 6 mL/ hr 6 mL/hr NaCl 0.9% 341 mL infusion (MARCAINE) 6 mL/hr, nerve catheter, Continuous, Starting on Tue12/30/21 at 1600, PACU & Post-Op, Nerve Catheter Location: Interscalene, Device: Hospital Infusion Pump Rate/Dose Verify 12/31/2021 12:11 AM MIXOLOGIST 6 mL/hr 6 mL/hr New Bag 12/30/2021 3:49 PM MIXOLOGIST 6 mL/hr 6 mL/hr buPROPion XL 24 hr tablet 150 mg (WELLBUTRIN Given 02/2022 8:35 AM MIXOLOGIST 150 mg XL) 150 mg, oral, Every morning, First dose on Tue12/31/21 at 0900, Swallow whole. Do NOT crush, chew, or split tablet. Given 12/31/2021 8:16 AM MIXOLOGIST 150 mg calcium carbonate chewable tablet Given 12/31/2021 11: 46 PM MIXOLOGIST 400 mg of calcium 400 mg of calcium (TUMS) 400 mg of calcium, oral, Every 2 hour PRN, indigestion, Starting on Tue12/30/21 at 1711, Doses listed are in mg of elemental calcium. Take with food. 500 mg calcium carbonate contains 200 mg of elemental calcium. Given 12/31/2021 9:15 PM MIXOLOGIST 400 mg of calcium carboxymethylcellulose 0.5 % ophthalmic Given 01/01/2022 1:15 AM MIXOLOGIST 2 drops solution 2 drop (REFRESH PLUS) 2 drop, both eyes, 4 times daily PRN, dry eyes, Starting on Tue12/30/21 at 1711 Given 12/31/2021 12:31 PM MIXOLOGIST 2 drops Given 12/31/2021 12:23 AM MIXOLOGIST 2 drops cefTRIAXone in dextrose (iso-osm) IVPB New Bag 01/01/2022 2:38 PM MIXOLOGIST 2 g 200 mL/hr 2 g (ROCEPHIN) 2 g, intravenous, at 200 mL/hr, Administer over 15 Minutes, Daily before lunch, First dose on Tue01/01/22 at 1345, Drug Monitoring Program: Pharmacist to adjust medication dosing based on indication and drug clearance factors., Indications: Bone and/or joint infection cetirizine tablet 10 mg (ZyrTEC) Given 01/01/2022 8:35 AM MIXOLOGIST 10 mg 10 mg, oral, 2 times daily, First dose on Tue12/30/21 at 2100, Drug Monitoring Program: Pharmacist to adjust medication dosing based on indication and drug clearance factors. Given 12/31/2021 8:57 PM MIXOLOGIST 10 mg Given 12/31/2021 8:16 AM MIXOLOGIST 10 mg cholecalciferol (vitamin D3) tablet 25 m cg Given 01/01/2022 8:35 AM MIXOLOGIST 25 mcg 25 mcg, oral, Daily, First dose on Tue12/31/21 at 0900, cholecalciferol (vitamin D3) orderable was interchanged for cholecalciferol (vitamin D3) tablet/capsule Given 12/31/2021 8:16 AM MIXOLOGIST 25 mcg D5W infusion 10-250 mL/hr, intravenous, [...] 5 mg (VALIUM) Given 12/31/2021 12:31 PM MIXOLOGIST 5 mg 5 mg, oral, 4 times daily PRN, muscle spasms, Starting on Tue12/30/21 at 2243 Given 12/31/2021 1:59 AM MIXOLOGIST 5 mg diphenhydrAMINE capsule 25 mg (BENADRYL) 25 mg, oral, Daily PRN, itching, Starting on Tue 2 at 0854 diphenhydrAMINE capsule 75 mg (BENADRYL) Given 01/01/2022 8:49 AM MIXOLOGIST 75 mg 75 mg, oral, Bedtime PRN, sleep, Starting on Tue12/30/21 at 1715 FLUoxetine capsule 80 mg (PROzac) Given 01/01/2022 8:34 AM MIXOLOGIST 80 mg 80 mg, oral, Daily, First dose on Tue12/31/21 at 0900, FLUoxetine orderable was interchanged for FLUoxetine tablet/capsule Given 12/31/2021 8:16 AM MIXOLOGIST 80 mg fluticasone furoate 100 mcg/actuation Given 01/01/2022 8:[address] 2 puffs inhaler 2 puff (ARNUITY ELLIPTA) 2 puff, inhalation, 2 times daily, First dose on Tue12/30/21 at 2100, fluticasone furoate 100 mcg was interchanged for fluticasone MDI 110 mcg Given 12/31/2021 9:04 PM MIXOLOGIST 2 puffs Given 12/31/2021 8:17 AM MIXOLOGIST 2 puffs gentamicin powder (for bone Given 12/30/2021 2:40 PM MIXOLOGIST 4 vials Left Shoulder cement) As needed, Starting on Tue12/30/21 at 1440, Intra-Op heparin PF flush syringe 50-150 Units 50-150 Units, intravenous, Once as neede d, line care, 50 units (5 mL) to each lumen of non-valved catheters only, Starting on Tue01/01/22 a t 0817, For 1 dose HYDROmorphone (PF) injection 0.4 mg Given 01/01/2022 4:56 AM MIXOLOGIST 0.4 mg (DILAUDID) 0.4 mg, intravenous, Every 2 hour PRN, severe pain or score 7-10 of 10, Starting on Tue12/30/21 at 1711, For 5 doses, May administer if pain is greater than 7 after scheduled and PRN regimen exhausted. If pain remains greater than 7, notify primary service. Given 12/31/2021 11:35 AM MIXOLOGIST 0.4 mg Given 12/31/2021 4:14 AM MIXOLOGIST 0.4 mg ipratropium-albuteroL 0.5-2.5 mg/3 mL nebulizer Given 01/01/2022 3:15 AM MIXOLOGIST 3 mL solution 3 mL (DUONEB) 3 mL, nebulization, 4 times daily PRN, shortness of breath, wheezing, Starting on Tue12/30/21 at 1711 lactated ringers Rate/Dose Change 01/01/2022 1:00 AM MIXOLOGIST 20 mL/hr 20 mL/hr 75 mL/hr, intravenous, Continuous, Starting on Tue12/30/21 at 1715, Until patient has 500cc po intake New Bag 12/31/2021 11:46 PM MIXOLOGIST 75 mL/hr 75 mL/hr Rate/Dose Change 12/31/2021 3:55 AM MIXOLOGIST 20 mL/hr 20 mL/hr lactated ringers Continued from OR 12/30/2021 4:00 PM MIXOLOGIST 75 mL/hr 75 mL/hr 75 mL/hr, intravenous, Continuous, Starting on Tue12/30/21 at 1600, PACU & Post-Op lamoTRIgine tablet 200 mg (LaMICtaL) Given 01/01/2022 8:34 AM MIXOLOGIST 200 mg 200 mg, oral, 2 times daily, First dose on Tue12/30/21 at 2100 Given 12/31/2021 8:56 PM MIXOLOGIST 200 mg Given 12/31/2021 8:16 AM MIXOLOGIST 200 mg methylene blue 0.5 % (5 mg/mL) Given 12/30/2021 2:39 PM MIXOLOGIST 2 mL Left Shoulder injection As needed, [...] 10 mg (ROXICODONE) Given 01/01/2022 2:38 PM MIXOLOGIST 10 mg 10 mg, oral, Every 3 hours PRN, severe pain or score 7-10 of 10, Starting on Tue12/31/21 at 1745 Given 01/01/2022 11:35 AM MIXOLOGIST 10 mg Given 01/01/2022 7:07 AM MIXOLOGIST 10 mg oxyCODONE IR tablet 5 mg (ROXICODONE) 5 mg, oral, Every 3 hours PRN, moderate pain or score 4-6 of 10, Starting on Tue12/31/21 at 1745, If patient is >75 consider changing to 2.5-5mg scale pantoprazole DR tablet 40 mg (PROTONIX) Given 01/01/2022 3:46 PM MIXOLOGIST 40 mg 40 mg, oral, 2 times daily before breakfast and dinner, First dose on Tue12/31/21 at 0700, pantoprazole 40 mg oral twice daily was interchanged for esomeprazole 20 or 40 mg oral twice daily Swallow whole. Do NOT crush, chew, or split tablet. Given 01/01/2022 6:29 AM MIXOLOGIST 40 mg Given 12/31/2021 4:47 PM MIXOLOGIST 40 mg pregabalin capsule 600 mg (LYRICA) Given 01/01/2022 8:34 AM MIXOLOGIST 600 mg 600 mg, oral, 2 times daily, First dose on Tue12/30/21 at 2100 Given 12/31/2021 8:56 PM MIXOLOGIST 600 mg Given 12/31/2021 8:15 AM MIXOLOGIST 600 mg QUEtiapine tablet 50 mg (SEROquel) Given 12/31/2021 8:57 PM MIXOLOGIST 50 mg 50 mg, oral, Daily at bedtime, First dose on Tue12/30/21 at 2100 Given 12/30/2021 9:55 PM MIXOLOGIST 50 mg sennosides-docusate sodium 8.6-50 mg per Given 01/01/2022 8:35 A M MIXOLOGIST 1 tablet tablet 1 tablet (SENOKOT-S) 1 tablet, oral, 2 times daily, First dose on Tue12/30/21 at 2100, Do not give if patient has diarrhea. Given 12/31/2021 8:57 PM MIXOLOGIST 1 tablet Given 12/31/2021 8:16 AM MIXOLOGIST 1 tablet sodium chloride 0.9 % injection [...] injection 3 mL Given 12/31/2021 8:18 AM MIXOLOGIST 3 mL 3 mL, intravenous, Every 12 hours scheduled, First dose on Tue12/30/21 at 2100, PACU & Post-Op, Peripheral Intravenous Catheter and Rapid Infusion Catheter, when no infusion to maintain patency Given 12/30/2021 9:53 PM MIXOLOGIST 3 mL vancomycin powder Given 12/30/2021 2:40 PM MIXOLOGIST 4 g Left Shoulder As needed, Starting on Tue12/30/21 at 1440, Intra-Op zonisamide capsule 300 mg (ZONEGRAN) Given 01/01/2022 8:35 AM MIXOLOGIST 300 mg 300 mg, oral, 2 times daily, First dose on Tue12/30/21 at 2100, Swallow whole. Do NOT crush, chew or open capsule. Given 12/31/2021 8:57 PM MIXOLOGIST 300 mg Given 12/31/2021 8:16 AM MIXOLOGIST 300 mg documented in this encounter Active and Recently Administered Medications Times are shown in MIXOLOGIST. Scheduled Medication Order 12/30/2021 12/31/2021 01/01/2022 acetaminophen [...] Givens R.N.)1136 (Given - Provider: Corrie Toscano RBetsy) 1,000 mg, oral, Every 6 hours, First dose on Tue12/30/21 at 1800 atorvastatin tablet 80 mg (LIPITOR) 2155 (Given - Prov ider: Ezequiel Hernandez R.N.) 2056 (Given - Provider: Fanny Sifuentes RBetsy) 80 mg, oral, Daily at bedtime, First [...] (iso-os) IVPB 2 g (ANCEF) (CANCE LED) 2153 (New Bag - Provider: Ezequiel Hernandez R.NBritton) 0636 (New Bag - Provider: Sharifa ConcepcionNBritton)1421 (New Bag - Provider: Maci Gonzalez R.N.)2232 (New Bag - Provider: Sharifa KeenNBritton) 0627 (New Bag - Provider: Viktoriya dorado [...] 1419 (Given - Provider: Emre Rodriguez APRN, REPORT DEVELOPER) 2,000 mg (rounded from 1,747.5 mg = [...] 1438 (New Bag - Provider: Corrie Toscano RBetsy) 2 g, intravenous, at 200 mL/hr, Administ er over 15 Minutes, Daily before lunch, First dose on Tue01/01/22 at 1345, Drug Monitoring Program: Pharmacist to adjust medication dosing based on indication and drug clearance factors., Indications: Bone and/or joint infectio n cetirizine tablet 10 mg (ZyrTEC) 2152 (Given - Provide r: Ezequiel Hernandez R.German.) 0816 (Given - Provider: Sharifa PaizN.)2056 (Given - Provider: Fanny Sifuentes RBrittonNBritton) 0835 (Given - Provider: Corrie fall RBrittonNBritton) 10 mg, oral, 2 times daily, First dose o n Tue12/30/21 at 2100, Drug Monitoring Program: Pharmacist to adjust medication dosing based on indication and drug clearance factors. cholecalciferol (vitamin D3) tablet 25 mcg 08 (Given - Provider: Maci Gonzalez R.N.) 0835 (Given - Provider: Corrie fall R.N.) 25 mcg, oral, Daily, First dose on Tue at 0900, cholecalciferol (vitamin D3) orderable was interchanged for cholecalciferol (vitamin D3) tablet/capsule FLUoxetine capsule 80 mg (PROzac) 08 ( Given - Provider: Maci Gonzalez R.N.) [...] injection 10 mg (KETALAR) (COMPLETED) 1238 (G iven - Provider: Sharifa ParraNBritton) 10 mg, intravenous, Once, On Tue12/30/21 at [...] hr tablet 20 mg (OxyCONTIN) (COMPLETED) 1 (Given - Provider: Manda Barnett R.N.) 20 mg, oral, Once, On Tue12/30/21 at 1300 , For 1 dose, Pre-Op, Swallow whole. Do NOT crush, chew, or split tablet. pantoprazole DR tablet 40 mg (PROTONIX) 0636 (Given - Provider: Viktoriya Givens R.N.)1647 (Given - Provider: Fanny Sifuentes R.N.) 0629 (Given - Provider: Viktoriya Givens R.N.)1546 (Given - Provider: Sharifa KeenNBritton) 40 mg, oral, 2 times daily before breakf ast and dinner, First dose on Tue12/31/21 at 0700, pantoprazole 40 mg oral twice daily was interchanged for esomeprazole 20 or 40 mg oral twice daily Swallow whole. Do NOT crush, chew, or split tablet. pregabalin capsule 600 mg (LYRICA) 2154 (Given - Provi marquis: Ezequiel Hernandez RBrittonN.) 0815 (Given - Provider: Maci Gonzalez RBrittonN.)2055 (Given - Provider: Sharifa KeenN.) 0834 (Given - Provider: Corrie fall R.N.) 600 mg, oral, 2 times daily, First dose on Tue12/30/21 at 2100 QUEtiapine tablet 50 mg (SEROquel) 2154 (Given - Provi marquis: Ezequiel Hernandez R.N.) 2056 (Given - Provider: Sharifa KeenNBritton) 50 mg, oral, Daily at bedtime, First dose on Tue12/30/21 at 2100 sennosides-docusate sodium 8.6-50 mg per tablet 1 tabl et (SENOKOT-S) 215 (Given - Provider: Ezequiel Hernandez R.N.) 0816 (Given - Provider: Maci Gonzalez R.N.)2056 (Given - Provider: Fanny Sifuentes R.N.) 0835 (Given - Provider: Sharifa CanasNBritton) 1 tablet, oral, 2 times daily, First [...] R.N.)2103 (Not Given - Provider: Fanny Sifuentes RBrittonN. - Reason: Other - Comment: iv fluid infusing) 0900 (Due) 3 mL, intravenous, Every 12 hours schedu led, First dose on Tue12/30/21 at 2100, PACU & Post-Op, Peripheral Intravenous Catheter and Rapid Infusion Catheter, when no infusion to maintain patency tranexamic acid in NaCl IVPB 1,000 mg (CYKLOKAPRON) (C OMPLETED) 1446 (Given - Provider: Emre Rodriguez APRN, REPORT DEVELOPER)1550 (Anesthesia Volume Adjustment - Provider: Emre Rodriguez [...] dropping tourniquet zonisamide capsule 300 mg (ZONEGRAN) 2155 (Given - Pro vider: Ezequiel Hernandez R.N.) [...] 1515 (New Bag - Provider: Elvira Duncan R.NBritton) 6 mL/hr, nerve catheter, Continuous, Sta rting on Tue01/01/22 at 1500, PACU & Post-Op, Location: Nerve Catheter Location, Nerve Catheter Location: Interscalene, Device: On-Q Pump bupivacaine PF 0.2 % in NaCl 0.9% 341 mL infusion (LIZBET DRIVER) 1549 (New Bag - Provider: Conchita Carmen R.N.) 0011 (Rate/Dose Verify - Provider: Kem Givens RBrittonNBritton) 0100 (Rate/Dose Verify - Provider: Kem Givens [...] mg 1644 (Given - Provider: Fanny Sifuentes RBrittonNBritton) 2.5 mg, nebulization, Every 6 hours PRN, wheezing, Starting on Tue12/30/21 at 1711, Albuterol nebs were interchanged for albuterol/levalbuterol MDI (same frequency) benzocaine-menthoL 15-3.6 mg per lozenge 1 lozenge (CEPACOL) 1 lozenge, oral, As needed, sore throat, Starting on Tue12/30/21 at 1711 benzonatate capsule 100 mg (TESSALON PERLSHAHZAD) 1739 (Given - Provider: Fanny Sifuentes RBrittonNBritton) 0310 (Given - Provider: Viktoriya Givens R.N.) [...] (TUMS) 2114 (Given - Provider: Fanny Sifuentes R.N.)2346 (Given - Provider: Leticia Pérez, R.N.) 400 mg of calcium, oral, Every 2 hour ID N, indigestion, Starting on Tue12/30/21 at 1711, Doses listed are in mg of elemental calcium. Take with food. 500 mg calcium carbonate contains 200 mg of elemental calcium. carboxymethylcellulose 0.5 % ophthalmic solution 2 drop (REF RESH PLUS) 0023 (Given - Provider: Viktoriya Givens R.N.)1231 (Given - Provider: Maci Gonzalez R.N.) 0115 (Given - Provider: Viktoriya Givnes R.N.) 2 drop, both eyes, 4 times [...] powder (for bone cement) (CANCELED) 1440 (Geronimo peoplesen - Provider: Cyrus Polk M.D.) As needed, [...] (CANCEL ED) 1555 (Given - Provider: Conchita Carmen RBetsy)1607 (Given - Provider: Conchita Carmen R.N.)1617 (Given - Provider: Conchita Carmen R.N.) 0.2 mg, intravenous, Every 5 min [...] Provider: Fanny Sifuentes R.N.)2053 (Given - Provider: Fanny Sifuentes R.N.)235 (Given - Provider: Rafal Waller, M.S.N., R.N.) [...] over 3 days 1 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
--- OUTSIDE RECORDS SUMMARY | 2022-08-01 06:43 | XMS_ITS | Encounter Summary ---
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 [address] [place] [phone] Referral ID Status Reason Start Date Expiration Date Visits V isits Requested Authorized [id number] Authorized 01/01/2022 01/01/2023 1 1 NG MACHINE OPERATOR PACKAGE YARNS Encounter Details Date Type Department Care Team Description 12/30/2021 - Hospital Encounter [facility] Kulwant Polk M.D. [address] [place] [phone] Pain Shoulder Left (Primary Dx); 01/01/2022 [facility], [facility] MPAS, P.A.-C. [address] [place] [phone] Shoulder Joint Disorder Left; Afshin Blasenberg Direct Inf ection Of Left Shoulder In Infectious And Parasitic Diseases Classified Elsewhere (HCC) Building, Eighth Floor [address] [place] [phone] Social History Tobacco Use Types Packs/Day Years [...] you attend episcopalian or Patient refused 2021 zoroastrian services? Do [...] Comments Blood Pressure 141/91 01/01/2022 4:26 PM DRYING MACHINE OPERATOR PACKAGE YARNS Pulse 95 01/01/2022 4:26 PM DRYING MACHINE OPERATOR PACKAGE YARNS Temperature 36.8 ??C (98.2 ??F) 01/01/2022 4:26 PM DRYING MACHINE OPERATOR PACKAGE YARNS Respiratory Rate 18 01/01/2022 4:26 PM DRYING MACHINE OPERATOR PACKAGE YARNS Oxygen Saturation 93% 01/01/2022 4:26 PM DRYING MACHINE OPERATOR PACKAGE YARNS Inhaled Oxygen Concentration - - Weight 69.9 kg (154 lb 1.6 12/30/2021 11:22 AM oz) DRYING MACHINE OPERATOR PACKAGE YARNS Height 150.5 cm (4' 11.25) 12/30/2021 11:22 AM no shoe s/boots DRYING MACHINE OPERATOR PACKAGE YARNS Body Mass Index 30.86 12/30/2021 11:22 AM DRYING MACHINE OPERATOR PACKAGE YARNS documented in this encounter Discharge Summaries Dario Carrera M.D. - 01/01/2022 8:50 AM CST DISCHARGE SUMMARY BRIEF OVERVIEW Hospital: [facility] Discharge Provider: Cyrus Polk M.D. Primary [...] RST [place] OR DISCHARGE DISPOSITION [place] [facility] [place] ACTIVE ISSUES REQUIRING FOLLOW UP Active [...] were provided to the patient and caregiver(s). NG MACHINE OPERATOR PACKAGE YARNS documented in this encounter Discharge Instructions AttachmentsThe following attachments cannot be sent through Care Everywhere. Continuous Nerve-Block Infusion System: Often called a ???pain pump?? ([place]) documented in this encounter Medications at Time [...] THC multivit-min/iron/folic/ Take 1 tablet by 0 [id number] (HAIR, SKIN AND mouth daily. NAILS ADVANCED [...] 50 mL (2 g 0 mL 0 02/0 02/202202/11/2022 iso-osm, (ROCEPHIN) 2 total) into a [...] signs of local anesthetic systemic toxicity, occur. Fatemeh Lloyd R.N. - 01/01/2022 5:28 PM CST Post Anesthesia Assessment Note Patient: Angie Mosquera General Info Post-procedure day: 4 Follow-up type: outpatient regional Regional Block Information Description/location: interscalene Laterality: left Rate (mL/hour): 6 (Bupivacaine 0.2% On-Q) Overall Comments Tried reaching the patient today. Unable to do this. Her nerve catheter should have been removed this morning when she got up for the day. NG MACHINE OPERATOR PACKAGE YARNS Ruth Gonzalez P.T., D.P.T. - 01/01/2022 4:29 [...] mask during therapy session: no Outcome Measures -[facility] Inpatient Short Form: -[facility] Basic Mobility (V.2) How much help from [...] 3-5 steps with a railing?: A Little AM-[facility] Basic Mobility (V.2) Raw Score: 23 AM-PAC Basic Mobility (V.2) Standardized Score: 50.88 Interpretation: Clinicians answer the AM-[facility] Inpatient Short Form based on observed patient [...] quad cane since it is not available [facility] by prescription. Barriers to Discharge Home: [...] Time (min): 23 min Ruth Gonzalez P.T., Juice.P.TBritton NG MACHINE OPERATOR PACKAGE YARNS Elvira Duncan R.N. - 01/01/2022 3:21 PM [...] educational pamphlet Continuous Nerve-Block Infusion System ( [id number]).?? Discussed at home removal of nervecatheter, signs [...] is aware of this. Thao Rivera L.I.C.S.W., M.S.WBritton - 01/01/2022 11:23 AM CST SUBJECTIVE Referral Data The patient was seen for ongoing discharge needs. A list of infusion options (that patient/family geographically resides or requests) has been provided to and reviewed with patient/family. Disclaimers: Financial disclosure provided informing patient of our ownership and financial relationship of the [facility]/home health & hospice agencies. Reviewed insurance [...] Selected Services Address Phone Fax Patient [facility] [address], [place] [id number] -- Contact: Intake NURSING: - Adjust the [...] will be managed by Outpatient Facility: [facility] Address: [address] , [place], [place] Contact: Princess They will provide IV [...] Work will continue to follow. Joe Ervin, M.S.W. 01/01/2022 NG MACHINE OPERATOR PACKAGE YARNS Gucci Salvador M.D. - 01/01/2022 10:45 AM [...] questions answered to patient's satisfaction. Please page [phone] for questions. 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 [id number] NG MACHINE OPERATOR PACKAGE YARNS Pamela Crawford Pharm.D., R.Ph. - 01/01/2022 10:14 [...] on post-operative opioids Pamela Crawford Pharm.D., R.Ph. [phone] NG MACHINE OPERATOR PACKAGE YARNS Jose Guadalupe Nixon M.D. - 01/01/2022 8:31 AM CST Infectious Diseases Orthopedic Surgery [facility] Consulting Service Progress Note SUBJECTIVE -No acute [...] Date/Time Bacteria / Mandi Culture, Blood #2 [[id number]] Collected: 12/31/21 1604 Lab Status: In process Specimen: Blood, Peripheral Draw Updated: 12/31/21 1651 Narrative: Received Bactec aerobic and Bactec anaerobic bottles Specimen Information: Specimen ID: [id number] Specimen Source: Blood, Peripheral Draw Specimen Comment: Specimen Source Site: Blood Specimen Collection Start Date: 12/31/2021 4:05 PM Specimen Received Date: 12/31/2021 4:51 PM Specimen ID: [id number] Specimen Source: Blood, Peripheral Draw Specimen Comment: Specimen Source Site: Blood Specimen Collection Start Date: 12/31/2021 4:05 PM Specimen Received Date: 12/31/2021 4:51 PM Specimen ID: [id number] Specimen Source: Blood, Peripheral Draw Specimen Comment: Specimen Source Site: Blood Specimen Collection Start Date: 12/31/2021 4:04 PM Specimen Received Date: 12/31/2021 4:51 PM Bacteria / Mandi Culture, Blood #1 [[id number]] Collected: 12/31/21 1552 Lab Status: In process Specimen: Blood, Peripheral Draw Updated: 12/31/21 165 Narrative: Received Bactec aerobic and Bactec anaerobic bottles Specimen Information: Specimen ID: [id number] Specimen Source: Blood, Peripheral Draw Specimen Comment: Specimen Source Site: Blood Specimen Collection Start Date: 12/31/2021 3:52 PM Specimen Received Date: 12/31/2021 4:50 PM Specimen ID: [id number] Specimen Source: Blood, Peripheral Draw Specimen Comment: Specimen Source Site: Blood Specimen Collection Start Date: 12/31/2021 3:53 PM Specimen Received Date: 12/31/2021 4:50 PM Specimen ID: [id number] Specimen Source: Blood, Peripheral Draw Specimen Comment: Specimen Source Site: Blood Specimen Collection Start Date: 12/31/2021 3:53 PM Specimen Received Date: 12/31/2021 4:50 PM Bacteria Cult, Aerobe / Anaerobe+Susc [[id number]] Collected: 12/30/21 1411 Lab Status: Preliminary result Specimen: Shoulder, Left Updated: 12/31/21 1601 Bacteria Cult, Aerobe/Anaerobe+Susc No growth to date. Narrative: Bacterial Culture: Placed in Bactec aerobic and Bactec anaerobic bottles Bacteria Cult, Aerobe / Anaerobe+Susc [[id number]] Collected: 12/30/21 1405 Lab Status: Preliminary result Specimen: Synovial Fluid, Left Shoulder Updated: 12/31/21 1601 Bacteria Cult, Aerobe/Anaerobe+Susc No growth to date. Narrative: Bacterial Culture: Placed in Bactec aerobic and Bactec anaerobic bottles Bacteria Cult, Aerobe / Anaerobe+Susc [[id number]] Collected: 12/30/21 1404 Lab Status: Preliminary result Specimen: Shoulder, Left Updated: 12/31/21 1601 Bacteria Cult, Aerobe/Anaerobe+Susc No growth to date. Narrative: Bacterial Culture: Placed in Bactec aerobic and Bactec anaerobic bottles Bacteria Cult, Aerobe / Anaerobe+Susc [[id number]] Collected: 12/30/21 1403 Lab Status: Preliminary result Specimen: Shoulder, Left Updated: 12/31/21 1601 Bacteria Cult, Aerobe/Anaerobe+Susc No growth to date. Narrative: Bacterial Culture: Placed in Bactec aerobic and Bactec anaerobic bottles Bacteria Cult, Aerobe / Anaerobe+Susc [[id number]] Collected: 12/30/21 1403 Lab Status: Preliminary result Specimen: Shoulder, Left Updated: 12/31/21 1601 Bacteria Cult, Aerobe/Anaerobe+Susc No growth to date. Narrative: Bacterial Culture: Placed in Bactec aerobic and Bactec anaerobic bottles SARS Coronavirus 2, Molecular Detection, PCR, Varies Asymptomatic [[id number]] Collected: 12/29/21 1111 Lab Status: Final result [...] ----ADDITIONAL INFORMATION---- This RT-PCR test using the eeden SARS-CoV-2 Assay ( Caviar.) performed on the eeden Two Module System has received Emergency Use Authorization (EUA) by the U.S. Food and Drug Administration, and is modified from the all round butcher's instructions with a bridging study. Performance characteristics were verified by [facility] in a manner consistent with CLIA requirements. Visit the CDC website: https://www.cdc.gov/coronavirus/ for the most recent guidelines on Coronavirus testing. Fact Sheet for Healthcare Providers: https://www.fda.gov/media/370371/download Fact Sheet for Patients: https://www.fda.gov/media/187012/download ASSESSMENT / PLAN 56-year-old female with a [...] is consistent with aspiration results from original [place] evaluation which is likely call center support representative of the culprit organism causing her [...] of Infectious Diseases OPAT monitoring program at [phone] after dismissal. Primary service to follow labs while patient is hospitalized. [place] pharmacist to adjust dosing after dismissal 4. [...] off at this time. Please page Ortho [facility]-ID service pager at [phone] with any questions. ?? Jose Guadalupe Nixon [...] - Date/Time Bacteria Cult, Aerobe / Anaerobe+Susc [[id number]] Collected: 12/30/21 1411 Lab Status: In process Specimen: Shoulder, Left Updated: 12/30/21 1540 Narrative: Bacterial Culture: Placed in Bactec aerobic and Bactec anaerobic bottles Bacteria Cult, Aerobe / Anaerobe+Susc [[id number]] Collected: 12/30/21 1405 Lab Status: In process Specimen: Synovial Fluid, Left Shoulder Updated: 12/30/21 1519 Narrative: Bacterial Culture: Placed in Bactec aerobic and Bactec anaerobic bottles Bacteria Cult, Aerobe / Anaerobe+Susc [[id number]] Collected: 12/30/21 1404 Lab Status: In process Specimen: Shoulder, Left Updated: 12/30/21 1536 Narrative: Bacterial Culture: Placed in Bactec aerobic and Bactec anaerobic bottles Bacteria Cult, Aerobe / Anaerobe+Susc [[id number]] Collected: 12/30/21 1403 Lab Status: In process Specimen: Shoulder, Left Updated: 12/30/21 1533 Narrative: Bacterial Culture: Placed in Bactec aerobic and Bactec anaerobic bottles Bacteria Cult, Aerobe / Anaerobe+Susc [[id number]] Collected: 12/30/21 1403 Lab Status: In process Specimen: Shoulder, Left Updated: 12/30/21 1538 Narrative: Bacterial Culture: Placed in Bactec aerobic and Bactec anaerobic bottles SARS Coronavirus 2, Molecular Detection, PCR, Varies Asymptomatic [[id number]] Collected: 12/29/21 1111 Lab Status: Final result [...] ----ADDITIONAL INFORMATION---- This RT-PCR test using the eeden SARS-CoV-2 Assay ( Caviar.) performed on the eeden Two Module System has received Emergency Use Authorization (EUA) by the U.S. Food and Drug Administration, and is modified from the all round butcher's instructions with a bridging study. Performance characteristics were verified by [facility] in a manner consistent with CLIA requirements. Visit the CDC website: https://www.cdc.gov/coronavirus/ for the most recent guidelines on Coronavirus testing. Fact Sheet for Healthcare Providers: https://www.fda.gov/media/307955/download Fact Sheet for Patients: https://www.fda.gov/media/707079/download ASSESSMENT / PLAN IMPRESSION/REPORT/PLAN #1 Status post [...] 6 am, please page Ortho House at [facility] [phone] Trey Phan R.N. - 12/31/2021 7:34 AM [...] - Date/Time Bacteria Cult, Aerobe / Anaerobe+Susc [[id number]] Collected: 12/30/21 1411 Lab Status: In process Specimen: Shoulder, Left Updated: 12/30/21 1540 Narrative: Bacterial Culture: Placed in Bactec aerobic and Bactec anaerobic bottles Bacteria Cult, Aerobe / Anaerobe+Susc [[id number]] Collected: 12/30/21 1405 Lab Status: In process Specimen: Synovial Fluid, Left Shoulder Updated: 12/30/21 1519 Narrative: Bacterial Culture: Placed in Bactec aerobic and Bactec anaerobic bottles Bacteria Cult, Aerobe / Anaerobe+Susc [[id number]] Collected: 12/30/21 1404 Lab Status: In process Specimen: Shoulder, Left Updated: 12/30/21 1536 Narrative: Bacterial Culture: Placed in Bactec aerobic and Bactec anaerobic bottles Bacteria Cult, Aerobe / Anaerobe+Susc [[id number]] Collected: 12/30/21 1403 Lab Status: In process Specimen: Shoulder, Left Updated: 12/30/21 1533 Narrative: Bacterial Culture: Placed in Bactec aerobic and Bactec anaerobic bottles Bacteria Cult, Aerobe / Anaerobe+Susc [[id number]] Collected: 12/30/21 1403 Lab Status: In process Specimen: Shoulder, Left Updated: 12/30/21 1538 Narrative: Bacterial Culture: Placed in Bactec aerobic and Bactec anaerobic bottles SARS Coronavirus 2, Molecular Detection, PCR, Varies Asymptomatic [[id number]] Collected: 12/29/21 1111 Lab Status: Final result [...] ----ADDITIONAL INFORMATION---- This RT-PCR test using the eeden SARS-CoV-2 Assay ( Caviar.) performed on the eeden Two Module System has received Emergency Use Authorization (EUA) by the U.S. Food and Drug Administration, and is modified from the all round butcher's instructions with a bridging study. Performance characteristics were verified by [facility] in a manner consistent with CLIA requirements. Visit the CDC website: https://www.cdc.gov/coronavirus/ for the most recent guidelines on Coronavirus testing. Fact Sheet for Healthcare Providers: https://www.fda.gov/media/935250/download Fact Sheet for Patients: https://www.fda.gov/media/611463/download ASSESSMENT / PLAN IMPRESSION/REPORT/PLAN #1 Status post [...] Jey Matos DO Shoulder & Elbow Fellow [facility] Orthopaedic Surgery For any questions or concerns from 6 am until 6 pm, please page Jam service For urgent matters from 6 pm until 6 am, please page [facility] at [facility] [phone] NG MACHINE OPERATOR PACKAGE YARNS Trey Rdz R.N. - 12/30/2021 4:39 PM [...] Care Plan:continue current management per plan/IPS protocol NG MACHINE OPERATOR PACKAGE YARNS Feli Viveros, PharmBrittonDBritton, R.Ph. - 12/30/2021 11:33 AM CST Images [...] home. She is registered with the state [facility] for medical cannabis and she gets her meds [place] a [place] dispensary. She was told to leave her [...] Take 150 mg by mouth every morning. hfgzvxsrvr-wxqfxoexobtpv-jjip (ESGIC) 50-325-40 mg per tablet Past Week [...] by mouth 2 (two) times a day. NG MACHINE OPERATOR PACKAGE YARNS documented in this encounter Procedure Notes Soraida [...] to release the adhesive from the skin. [email or web address] NG MACHINE OPERATOR PACKAGE YARNS documented in this encounter Consult Notes Ruth Gonzalez P.T., RevaStacy. - 12/31/2021 4:00 PM CST Physical Therapy [...] (HCC) ??? Nicotine Dependence Unspecified ??? Other Logistics Officer Current Drug Therapy ??? 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 ABDOMINOPLASTY ??? ARTHROPLASTY - RESECTION SHOULDER Left 12/30/2021 Procedure: ARTHROPLASTY RESECTION SHOULDER.; Surgeon: Cyrus Polk M.D.; Location: [facility] ROEI OR ??? BACK SURGERY 1998 lumbar [...] Right Lives With: Alone Receives Help From: cloak room attendant, Family, Friend(s) ADL Assistance: Required assistance ADL Assistance Comments: Gets help from INK PRINTER for her bath/shower and for her meals IADL/Homemaking Assistance: Required assistance IADL/Homemaking Assistance Comments: Gets help for housecleaning Driving: Independent Occupational Role: On disability Prior Mobility/Functional Transfers Level of [place]: Modified independent Gait Devices/Wheelchair Used: Cane Gait [...] session with call light in reach and INK PRINTER present, all needs metand questions answered. Contact monitoring: PPE used during therapy: Therapist was wearing the following PPE throughout entire session: surgicalmask and eye protection Patient was wearing a mask during therapy session: yes, when out of room Outcome Measures [facility] Inpatient Short Form: -[facility] Basic Mobility (V.2) How much help from [...] 3-5 steps with a railing?: A Lot -[facility] Basic Mobility (V.2) Raw Score: 17 -[facility] Basic Mobility (V.2) Standardized Score: 39.67 Interpretation: Clinicians answer the -[facility] Inpatient Short Form based on observed patient [...] (min): 36 min Ruth Gonzalez P.T., D.P.T. NG MACHINE OPERATOR PACKAGE YARNS Thao You L.I.C.SBrenton, M.S.W. - 12/31/2021 2:04 PM CSTAssociated Order(s): IP CONSULT TO CARE MANAGEMENT; IP CONSULT TO CARE MANAGEMENT; IP CONSULT TO CARE MANAGEMENT Psychosocial Assessment SUBJECTIVE DEMOGRAPHIC INFORMATION Person(s) present during interview: Patient Primary care clinic and provider: [facility] Primary Language: [place] Legal Information: Legal decision maker for self [...] / Household Status: Patient resides alone in [place], [place]. She lives in a two bedroom apartment. Patient has four adultchildren two of whom live in [place]. Patient son Rafal lives next door to patient. Support Systems: Family members, Friends/neighbors. We have not received permission to contact them. Primary caregiver: Self Accompanied by/Relationship: None Support System: Family members, Friends/neighbors Spirituality / Protestant / Culture: , None History: No Education: High school Employment: Disabled Psychosocial Risk Factors impacting the patient: Resides alone, mental health issues Abuse, Neglect, Maltreatment, Trauma: Current: None reported. Past: None reported. ENVIRONMENTAL SUPPORTS Current Living Situation: Private residence Patient's Home Environment: Resides in a two bedroom apartment on the [address] [facility] Care Facility Name (if applicable): NA [...] Behavior: Oriented Communication: Reads, writes and speaks [place] It is anticipated that the patient will need assistance with .Dressing,bathing, meal prep, housekeeping, shopping ASSISTIVE DEVICES Patient has the following equipment: Eyeglasses, Dentures upper, Dentures lower, cane, walker Patient anticipates potentially needing the following additional equipment: None Transportation needs: Independent to drive, support from family and friends SERVICES REQUESTED Infusion therapy JUICE WEIGHER Formal and Informal Resources: Patient receives home health aid services three times per week and mcfp visit one time every two weeks through [facility] Services. FINANCES/INSURANCE Primary insurance: MEDICARE A AND B Secondary insurance: MEDICA ADVANCE DIRECTIVES Advance Directive: Patient does not have advance directive, does not want information DISCHARGE PLANNING Patient is planning on returning home upon her discharge. She currently receives home health aid services and mcfp through [facility]. Patient also has support from [...] good support group consisting of family, friends [facility]. INTERVENTIONS ?? Psychosocial assessment ?? Rapport building ?? Education on coping with chronic pain. PLAN ?? Social work will continue to follow for discharge planning and support. ?? Social work did speak with Pat at [facility] to confirm home health services. ?? Social work will work on infusion therapy referrals as well as home health/outpatient picc site care and labs. Anticipated barriers to the transition of care/plan: None Joe Ervin, M.S.W. 12/31/2021 NG MACHINE OPERATOR PACKAGE YARNS Jose Guadalupe Nixon M.D. - 12/31/2021 7:31 AM CSTAssociated Order(s): IP CONSULT TO INFECTIOUS DISEASES Infectious Diseases Orthopedic Surgery [facility] Consulting Service Consult Note SUBJECTIVE REASON FOR [...] resistance on OSH AST. She presented to [facility] (unclear if on antibiotics) for further evaluation given persistent L shoulder pain 08/2021 prompting aspiration (09/25/21) which revealed elevated TNC (40755) with 81% PMNs with cultures positive for1 [...] patient was subsequently admitted to [facility] for further management. Intraoperative cultures [...] - Date/Time Bacteria Cult, Aerobe / Anaerobe+Susc [[id number]] Collected: 12/30/21 1411 Lab Status: In process Specimen: Shoulder, Left Updated: 12/30/21 1540 Narrative: Bacterial Culture: Placed in Bactec aerobic and Bactec anaerobic bottles Bacteria Cult, Aerobe / Anaerobe+Susc [[id number]] Collected: 12/30/21 1405 Lab Status: In process Specimen: Synovial Fluid, Left Shoulder Updated: 12/30/21 1519 Narrative: Bacterial Culture: Placed in Bactec aerobic and Bactec anaerobic bottles Bacteria Cult, Aerobe / Anaerobe+Susc [[id number]] Collected: 12/30/21 1404 Lab Status: In process Specimen: Shoulder, Left Updated: 12/30/21 1536 Narrative: Bacterial Culture: Placed in Bactec aerobic and Bactec anaerobic bottles Bacteria Cult, Aerobe / Anaerobe+Susc [[id number]] Collected: 12/30/21 1403 Lab Status: In process Specimen: Shoulder, Left Updated: 12/30/21 1533 Narrative: Bacterial Culture: Placed in Bactec aerobic and Bactec anaerobic bottles Bacteria Cult, Aerobe / Anaerobe+Susc [[id number]] Collected: 12/30/21 1403 Lab Status: In process Specimen: Shoulder, Left Updated: 12/30/21 1538 Narrative: Bacterial Culture: Placed in Bactec aerobic and Bactec anaerobic bottles SARS Coronavirus 2, Molecular Detection, PCR, Varies Asymptomatic [[id number]] Collected: 12/29/21 1111 Lab Status: Final result [...] ----ADDITIONAL INFORMATION---- This RT-PCR test using the eeden SARS-CoV-2 Assay ( Caviar.) performed on the eeden Two Module System has received Emergency Use Authorization (EUA) by the U.S. Food and Drug Administration, and is modified from the all round butcher's instructions with a bridging study. Performance characteristics were verified by [facility] in a manner consistent with CLIA requirements. Visit the CDC website: https://www.cdc.gov/coronavirus/ for the most recent guidelines on Coronavirus testing. Fact Sheet for Healthcare Providers: https://www.fda.gov/media/417850/download Fact Sheet for Patients: https://www.fda.gov/media/949458/download ASSESSMENT / PLAN 56-year-old female with a [...] is consistent with aspiration results from original [facility] evaluation which is likely call center support representative of the culprit organism causing her [...] will follow along closely. Please page the [facility] service pager at [phone] with questions. Thank you for the consultation. Jose Guadalupe Nixon M.D. NG MACHINE OPERATOR PACKAGE YARNS Associated attestation - Gucci Salvador M.D. - 12/31/2021 6:07 PM DRYING MACHINE OPERATOR PACKAGE YARNS DEMOGRAPHIC INFORMATION [facility] Number:[id number] Patient Name: Angie Mosquera Date: 12/31/21 [...] Oxycodone. Oxycodone filled here at [facility] pharmacy. Patient going home with an interscalene block OnQ pump. Transportation provided by her son. NG MACHINE OPERATOR PACKAGE YARNS Fanny Sifuentes R.N. - 12/31/2021 11:00 PM [...] Nasal mucous membranes remain intact Outcome: Progressing NG MACHINE OPERATOR [employer]ACKAGE YARNS Ezequiel Hernandez R.N. - 12/30/2021 10:27 PM [...] staff assistance to bathroom. Navin Hernandez R.N. NG MACHINE OPERATOR [employer]ACKAGE YARNS documented in this encounter OR Notes Op Note - Cyrus Polk M.D. - 12/30/2021 2:50 PM CST STAFF: Cyrus Polk M.D. RESIDENT: Dario Carrera M.D. PRE-OPERATIVE DIAGNOSIS Left infected reverse arthroplasty. POST-OPERATIVE DIAGNOSIS Left infected reverse arthroplasty. A assistant nurse manager was necessary for one or more of [...] Cyrus Polk M.D. CT CT Job ID: [id number] NG MACHINE OPERATOR PACKAGE YARNS documented in this encounter Miscellaneous Notes Hospital [...] and pain is controlled on oral medications. NG MACHINE OPERATOR [employer]ACKAGE YARNS documented in this encounter Plan of Treatment Scheduled Referrals Name Type Priority Associated Diagnoses Order S [facility] Outpatient Referral Routine Direct Infection Of Ordered: Health Referral Left Shoulder In 01/01/20 22 Infectious And Parasitic Diseases Classified Elsewhere (HCC) documented as of this encounter Procedures Procedure Name Priority Date/Time Associated Comments Diagnosis PLACE PERIPHERALLY Routine 01/01/2022 12:11 Resul ts for this INSERTED CENTRAL PM DRYING MACHINE OPERATOR PACKAGE YARNS procedure a re in CATHETER (PICC) the results section. REMOTE OXIMETRY Routine 12/31/2021 5:23 MONITORING CONT. PM DRYING MACHINE OPERATOR [employer]ACKAGE YARNS REMOTE OXIMETRY Routine 12/31/2021 5:23 MONITORING CONT. PM DRYING MACHINE OPERATOR [employer]ACKAGE YARNS BACTERIA / MANDI Routine 12/31/2021 4:04 Result s for this CULTURE, BLOOD PM DRYING MACHINE OPERATOR [employer]ACKAGE YARNS procedure are in the results section. BACTERIA / MANDI Routine 12/31/2021 3:52 Result s for this CULTURE, BLOOD PM DRYING MACHINE OPERATOR [employer]AGE [employer]ARNS procedure are in the results section. ADULT OXYGEN THERAPY Routine 12/31/2021 8:01 AM DRYING MACHINE OPERATOR [employer]AGE YARNS CBC WITH Routine 12/31/2021 4:25 Results for this DIFFERENTIAL, B AM DRYING MACHINE OPERATOR [employer]NS procedure ar e in the results section. BASIC METABOLIC Routine 12/31/2021 4:25 Results f or this PANEL, S/P AM DRYING MACHINE OPERATOR [employer]AGE YARNS procedure are i n the results section. ADULT OXYGEN THERAPY Routine 12/30/2021 8:01 PM DRYING MACHINE OPERATOR [employer]AGE YARNS ADULT OXYGEN THERAPY Routine 12/30/2021 5:12 PM DRYING MACHINE OPERATOR [employer]AGE Y[employer]NS ADULT OXYGEN THERAPY Routine 12/30/2021 5:12 PM DRYING MACHINE OPERATOR [employer]AGE [employer]NS ADULT OXYGEN THERAPY Routine 12/30/2021 3:46 PM DRYING MACHINE OPERATOR [employer]AGE YARNS ADULT OXYGEN THERAPY Routine 12/30/2021 3:46 PM DRYING MACHINE OPERATOR [employer]AGE YARNS DX SHOULDER LEFT 1 RAD - Timed (for 12/30/2021 3:41 Re sults for this VIEW specific PM DRYING MACHINE OPERATOR PACKAGE YARNS procedure are i n dates/times) the results section. SURGICAL PATHOLOGY, Routine 12/30/2021 2:15 Shoulder Joint Res ults for this [facility] LAB PM DRYING MACHINE OPERATOR [employer]ACKAGE YARNS Disorder Left procedure are in the results section. BACTERIA CULT, Routine 12/30/2021 2:11 Results fo r this AEROBE/ANAEROBE+SUSC PM DRYING MACHINE OPERATOR [employer]ACKAGE YARNS procedu re are in the results section. BACTERIA CULT, Routine 12/30/2021 2:05 Results fo r this AEROBE/ANAEROBE+SUSC PM DRYING MACHINE OPERATOR PACKAGE YARNS procedu re are in the results section. BACTERIA CULT, Routine 12/30/2021 2:04 Results fo r this AEROBE/ANAEROBE+SUSC PM DRYING MACHINE OPERATOR [employer]ACKAGE YARNS procedu re are in the results section. BACTERIA CULT, Routine 12/30/2021 2:03 Results fo r this AEROBE/ANAEROBE+SUSC PM DRYING MACHINE OPERATOR PACKAGE YARNS procedu re are in the results section. BACTERIA CULT, Routine 12/30/2021 2:03 Results fo r this AEROBE/ANAEROBE+SUSC PM DRYING MACHINE OPERATOR PACKAGE YARNS procedu re are in the results section. ARTHROPLASTY 12/30/2021 12:34 Shoulder Joint RESECTION SHOULDER PM DRYING MACHINE OPERATOR [employer]ACKAGE YARNS Disorder Left documented in this encounter Results Place peripherally inserted central catheter (PICC) (01/01/2022 12:11 PM DRYING MACHINE OPERATOR PACKAGE YARNS) Narrative MMODAL - 01/01/2022 12:11 PM DRYING MACHINE OPERATOR PACKAGE YARNS Soraida Dick R.N. ? 01/01/2022 12:13 PM [...] to release the adhesive from the skin. [email or web address] Dario Carrera M.D. PROCEDURE/MINOR SURGICAL ORD ERABLES Performing Organization Address City/[facility]/ZIP Code Phon e Number MMODAL MMODAL NA Bacteria / Mandi Culture, Blood #2 (12/31/2021 4:04 PM DRYING MACHINE OPERATOR PACKAGE YARNS) [facility] Method Time Signature Bacteria/Valerie No growth 01/05/2022 DTL da Culture, after 5 5:02 PM DRYING MACHINE OPERATOR PACKAGE YARNS Blood days of incubation. Specimen (Source) Anatomical Collection Method Collection Time Re ceived Time Location / / Volume Laterality Blood (Blood, 12/31/2021 4:04 12/31/2021 4:51 Peripheral Draw) PM DRYING MACHINE OPERATOR PACKAGE YARNS PM DRYING MACHINE OPERATOR PACKAGE YARNS Comment: Specimen Source Site: Blood Narrative [facility] - 01/05/2022 5:02 PM DRYING MACHINE OPERATOR PACKAGE YARNS Received Bactec aerobic and Bactec anaer obic bottles Dario Carrera M.D. LAB MICROBIOLOGY - GENERAL O RDERASARAH Performing Organization Address [facility]/ZIP [facility] Phon e Number [facility] [id number] [place] [address] Bacteria / Mandi Culture, Blood #1 (12/31/2021 3:52 PM DRYING MACHINE OPERATOR PACKAGE YARNS) [facility] Method Time Signature Bacteria/Valerie No growth 01/05/2022 DTL da Culture, after 5 5:02 PM DRYING MACHINE OPERATOR [employer]ACKAGE YARNS Blood days of incubation. Specimen (Source) Anatomical Collection Method Collection Time Re ceived Time Location / / Volume Laterality Blood (Blood, 12/31/2021 3:52 12/31/2021 4:50 Peripheral Draw) PM DRYING MACHINE OPERATOR PACKAGE YARNS PM DRYING MACHINE OPERATOR PACKAGE YARNS Comment: Specimen Source Site: Blood Narrative [facility] - 01/05/2022 5:02 PM DRYING MACHINE OPERATOR PACKAGE YARNS Received Bactec aerobic and Bactec anaer obic bottles Dario Carrera M.D. LAB MICROBIOLOGY - GENERAL O RDERABLES Performing Organization Address City/[facility]/ZIP Code Phon e Number [facility] - [address] [place], [place] [address] [facility] [place] [address] [facility] [address] (ABNORMAL) CBC with Differential, Blood (12/31/2021 4:25 AM DRYING MACHINE OPERATOR PACKAGE YARNS) [facility] gist Method Time Signature Hemoglobin 8.9 (L) 11.6 - 12/31/2021 DTL 15.0 g/dL 5:15 AM DRYING MACHINE OPERATOR PACKAGE YARNS Hematocrit 27.3 (L) 35.5 - 12/31/2021 DTL 44.9 % 5:15 AM DRYING MACHINE OPERATOR PACKAGE YARNS Erythrocytes 3.26 (L) 3.92 - 12/31/2021 DTL 5.13 5:15 AM DRYING MACHINE OPERATOR PACKAGE YARNS x10(12)/L MCV 83.7 78.2 - 12/31/2021 DTL 97.9 fL 5:15 AM DRYING MACHINE OPERATOR PACKAGE YARNS RBC Distrib Width 19.6 (H) 12.2 - 12/31/2021 DTL 16.1 % 5:15 AM DRYING MACHINE OPERATOR PACKAGE YARNS Platelet Count 274 157 - 371 12/31/2021 DTL x10(9)/L 5:15 AM DRYING MACHINE OPERATOR PACKAGE YARNS Leukocytes 6.6 3.4 - 9.6 12/31/2021 DTL x10(9)/L 5:15 AM DRYING MACHINE OPERATOR PACKAGE YARNS Neutrophils 4.91 1.56 - 12/31/2021 DTL 6.45 5:15 AM DRYING MACHINE OPERATOR PACKAGE YARNS x10(9)/L Lymphocytes 1.10 0.95 - 12/31/2021 DTL 3.07 5:15 AM DRYING MACHINE OPERATOR PACKAGE YARNS x10(9)/L Monocytes 0.61 0.26 - 12/31/2021 DTL 0.81 5:15 AM DRYING MACHINE OPERATOR PACKAGE YARNS x10(9)/L Eosinophils <0.03 0.03 - 12/31/2021 DTL 0.48 5:15 AM DRYING MACHINE OPERATOR PACKAGE YARNS x10(9)/L Basophils <0.03 0.01 - 12/31/2021 DTL 0.08 5:15 AM DRYING MACHINE OPERATOR PACKAGE YARNS x10(9)/L Specimen Anatomical Collection Method Collection Time Receive d Time (Source) Location / / Volume Laterality Blood (Blood, 12/31/2021 4:25 AM 12/31/19 5:04 Venous) DRYING MACHINE OPERATOR PACKAGE YARNS AM DRYING MACHINE OPERATOR PACKAGE YARNS Dario Carrera M.D. LAB BLOOD ADD-ON Performing Organization Address City/State/ZIP Code Phon e Number [facility] - [address] [place], [place] [address] [facility] [place] [place] [address] [facility] 200 [facility] (ABNORMAL) Basic Metabolic Panel (12/31/2021 4:25 AM DRYING MACHINE OPERATOR PACKAGE YARNS) P athologist Signature Potassium, S 4.4 3.6 - 5.2 12/31/2021 DTL mmol/L 5:35 AM DRYING MACHINE OPERATOR PACKAGE YARNS Sodium, S 134 (L) 135 - 145 12/31/2021 DTL mmol/L 5:35 AM DRYING MACHINE OPERATOR PACKAGE YARNS Chloride, S 103 98 - 107 12/31/2021 DTL mmol/L 5:35 AM DRYING MACHINE OPERATOR PACKAGE YARNS Bicarbonate, S 22 22 - 29 12/31/2021 DTL mmol/L 5:35 AM DRYING MACHINE OPERATOR PACKAGE YARNS Anion Gap 9 7 - 15 12/31/2021 DTL 5:35 AM DRYING MACHINE OPERATOR PACKAGE YARNS BUN (Blood Urea 21 6 - 21 12/31/2021 DTL Nitrogen), S mg/dL 5:35 AM DRYING MACHINE OPERATOR PACKAGE YARNS Creatinine 0.74 0.59 - 12/31/2021 DTL 1.04 mg/dL 5:35 AM DRYING MACHINE OPERATOR PACKAGE YARNS eGFR-Non 90 >=60 12/31/2021 DTL Black/ mL/min/BSA 5:35 AM DRYING MACHINE OPERATOR PACKAGE YARNS Norwegian Comment: ----ADDITIONAL INFORMATION---- Estimated GFR calculated using the 2009 CKD_EPI creatinine equation. eGFR-Black/ >90 >=60 mL/min/BSA 2021 5:35 AM DRYING MACHINE OPERATOR PACKAGE YARNS DTL Comment: ----ADDITIONAL INFORMATION---- Estimated GFR calculated using the 2009 CKD_EPI creatinine equation. Calcium, Total, S 8.7 8.6 - 10.0 mg/dL 12/31/2021 5:35 AM DRYING MACHINE OPERATOR PACKAGE YARNS DTL Glucose, S 138 70 - 140 mg/dL 12/31/2021 5:35 AM DRYING MACHINE OPERATOR PACKAGE YARNS D TL Specimen Anatomical Collection Method Collection Time Receive d Time (Source) Location / / Volume Laterality Blood (Blood, 12/31/2021 4:25 AM 12/31/19 5:18 Venous) DRYING MACHINE OPERATOR PACKAGE YARNS AM DRYING MACHINE OPERATOR PACKAGE YARNS Dario Carrera M.D. LAB BLOOD ADD-ON Performing Organization Address City/State/ZIP Code Phon e Number [facility] - [address] [place], [place] [address] [place] [address] [facility] [address] DX Shoulder Left 1 View (12/30/2021 3:41 PM DRYING MACHINE OPERATOR PACKAGE YARNS) Anatomical Region Laterality Modality Upper Extremity, Shoulder, Musculoskeletal RST LOS, Left Computed Radiography Musculoskeletal ARZ LOS, Muskuloskeletal FLA LOS Specimen (Source) Anatomical Collection Method Collection Time Re ceived Time Location / / Volume Laterality 12/30/2021 3:54 PM DRYING MACHINE OPERATOR PACKAGE YARNS Impressions 12/30/2021 3:59 PM DRYING MACHINE OPERATOR PACKAGE YARNS Postoperative changes of a left shoulder arthroplasty resection and placement of an antibiotic spacer. Negat lalo for postoperative purposes. Narrative 12/30/2021 3:59 PM DRYING MACHINE OPERATOR PACKAGE YARNS EXAM: ??DX SHOULDER LEFT 1 VIEW Procedure Note Timothy Resendiz M.D. - 12/30/2021Forma tting of this note might be different from the original. EXAM: DX SHOULDER LEFT 1 VIEW IMPRESSION: Postoperative changes of a left shoulder arthroplasty resection and placement of an antibiotic spacer. Negat lalo for postoperative purposes. Dario [facility] Surgical Pathology, Frozen Lab (12/30/2021 2:15 PM DRYING MACHINE OPERATOR PACKAGE YARNS) Component Value Ref Test Analysis Performed At [facility] Range Method Time Signature 01/01/2022 METH 8:22 AM DRYING MACHINE OPERATOR PACKAGE YARNS Participated in Kelly Howard 01/01/2022 METH the D.O.-Pathology 8:22 AM DRYING MACHINE OPERATOR PACKAGE YARNS Interpretation Resident Report Solomon Marcum M.D. 01/01/2022 METH electronically 8:22 AM DRYING MACHINE OPERATOR PACKAGE YARNS signed by I verify that I have examined all relevant slides/materials for the specimen(s) and rendered or confirmed the diagnosis. Frozen A. ??Synovium, left shoulder, excision: ??Synovial tissue 01/01/2022 METH Intraoperative with 8:22 AM DRYING MACHINE OPERATOR PACKAGE YARNS Report acute inflammation (>5 neutrophils/high power field). Signed by Solomon Marcum M.D. 12/31/2021 8:17 AM Gross Description A. ??Received fresh labeled left shoulder is a 1.4 x 0.9 x 01/01/2022 METH 0.4 cm aggregate of red and campbell fibrous tissue, which is 8:22 AM DRYING MACHINE OPERATOR PACKAGE YARNS soft. ??All submitted for frozen and permanent sections. Grossed by Nikki Gallardo. Block Summary A Left shoulder 01/01/2022 METH A1 Left shoulder-frozen 8:22 AM DRYING MACHINE OPERATOR PACKAGE YARNS Interpretation FINAL DIAGNOSIS 01/01/2022 METH 8:22 AM DRYING MACHINE OPERATOR PACKAGE YARNS A. ??Synovium, left shoulder, excision: ??Synovial tissue with acute inflammation (>5 neutrophils/high power field). Specimen (Source) Anatomical Collection Method Collection Time Re ceived Time Location / / Volume Laterality Tissue (Shoulder, 12/30/2021 2:15 PM Left) DRYING MACHINE OPERATOR PACKAGE YARNS Narrative This result has an attachment that is no t available. Cyrus Polk M.D. LAB SURG PATH ORDERABLES Performing Organization Address [facility] Phon e Number [facility] - [address] METH [place], [place] [id number] [place] [address] First [facility] Bacteria Cult, Aerobe / Anaerobe+Susc (12/30/2021 2:11 PM DRYING MACHINE OPERATOR PACKAGE YARNS) [facility] Method Time Signature Bacteria Cult, No growth 01/13/2022 DTL Aerobe/Anaerob after 14 4:02 PM DRYING MACHINE OPERATOR PACKAGE YARNS e+Susc days of incubation. Specimen Anatomical Collection Method Collection Time Receive d Time (Source) Location / / Volume Laterality Shoulder, Left 12/30/2021 2:11 PM 022 3:38 DRYING MACHINE OPERATOR PACKAGE YARNS PM DRYING MACHINE OPERATOR PACKAGE YARNS Comment: Specimen Source Site: Tissue #[address] [facility] - [facility] - 01/13/2022 4:02 PM DRYING MACHINE OPERATOR PACKAGE YARNS Bacterial Culture: Placed in Bactec aero bic and Bactec anaerobic bottles Cyrus Polk M.D. LAB MICROBIOLOGY - GENERAL O RDERABLES Performing Organization Address City/[facility] Phon e Number [facility] - [address] [place], [place] [address] [facility] DTL [place], [place] [id number] [place] [address] First [facility] (ABNORMAL) Bacteria Cult, Aerobe / Anaerobe+Susc (12/30/2021 2:05 PM DRYING MACHINE OPERATOR PACKAGE YARNS) Component Value Ref Test Analysis [facility] Range Method Time Signature Bacteria STAPHYLOCOCCUS EPIDERMIDIS 01/11/2022 DT L Cult, Growth after 4 days 7:55 AM DRYING MACHINE OPERATOR PACKAGE YARNS Aerobe/Anaero (A) be+Susc Comment: Semi-Urgent Result. Semi-Urgent This is a semi-urgent result [facility] - (ORTIZ) [facility] S Specimen Anatomical Collection Method Collection Time Receive d Time (Source) Location / / Volume Laterality Synovial Fluid, 12/30/2021 2:05 PM 2021 3:17 Left Shoulder DRYING MACHINE OPERATOR PACKAGE YARNS PM DRYING MACHINE OPERATOR PACKAGE YARNS Comment: Specimen Source Site: Fluid Narrative [facility] - [facility] - 01/11/2022 7:55 AM DRYING MACHINE OPERATOR PACKAGE YARNS Bacterial Culture: Placed in Bactec aero bic and Bactec anaerobic bottles Organism Antibiotic Method Susceptibility Staphylococcus epidermidis Oxacillin SUSCEPTIBILITY, SNADRA < =0.06 mcg/mL: Susceptible (MCG/ML) Comment: Use [...] Code Phon e Number [facility] - [address] [place] [address] [facility] [place] [place] [address] [facility] [address] [facility] Bacteria Cult, Aerobe / Anaerobe+Susc (12/30/2021 2:04 PM DRYING MACHINE OPERATOR PACKAGE YARNS) [facility] Method Time Signature Bacteria Cult, No growth 01/13/2022 DTL Aerobe/Anaerob after 14 4:02 PM DRYING MACHINE OPERATOR PACKAGE YARNS e+Susc days of incubation. Specimen Anatomical Collection Method Collection Time Receive d Time (Source) Location / / Volume Laterality Shoulder, Left 12/30/2021 2:04 PM 022 3:34 DRYING MACHINE OPERATOR PACKAGE YARNS PM DRYING MACHINE OPERATOR PACKAGE YARNS Comment: Specimen Source Site: Tissue #3 [facility] - 01/13/2022 4:02 PM DRYING MACHINE OPERATOR PACKAGE YARNS Bacterial Culture: Placed in Bactec aero bic and Bactec anaerobic bottles Cyrus Polk M.D. LAB MICROBIOLOGY - GENERAL O MARY Performing Organization Address City/[facility] Phon e Number [facility] - [address] [place], [place] [address] [facility] [address] Bacteria Cult, Aerobe / Anaerobe+Susc (12/30/2021 2:03 PM DRYING MACHINE OPERATOR PACKAGE YARNS) [facility] Method Time Signature Bacteria Cult, No growth 01/13/2022 DTL Aerobe/Anaerob after 14 4:02 PM DRYING MACHINE OPERATOR PACKAGE YARNS e+Susc days of incubation. Specimen Anatomical Collection Method Collection Time Receive d Time (Source) Location / / Volume Laterality Shoulder, Left 12/30/2021 2:03 PM 022 3:37 DRYING MACHINE OPERATOR PACKAGE YARNS PM DRYING MACHINE OPERATOR PACKAGE YARNS Comment: Specimen Source Site: Tissue #2 [facility] - 01/13/2022 4:02 PM DRYING MACHINE OPERATOR PACKAGE YARNS Bacterial Culture: Placed in Bactec aero bic and Bactec anaerobic bottles Cyrus Polk M.D. LAB MICROBIOLOGY - GENERAL O MARY Performing Organization Address City/State/[facility] Code Phon e Number [facility] - [address] [place], [place] [address] [facility] [place], [place] [id number] [place] [address] Bacteria Cult, Aerobe / Anaerobe+Susc (12/30/2021 2:03 PM DRYING MACHINE OPERATOR PACKAGE YARNS) [facility] Method Time Signature Bacteria Cult, No growth 01/13/2022 DTL Aerobe/Anaerob after 14 4:02 PM DRYING MACHINE OPERATOR PACKAGE YARNS e+Susc days of incubation. Specimen Anatomical Collection Method Collection Time Receive d Time (Source) Location / / Volume Laterality Shoulder, Left 12/30/2021 2:03 PM 022 3:31 DRYING MACHINE OPERATOR PACKAGE YARNS PM DRYING MACHINE OPERATOR PACKAGE YARNS Comment: Specimen Source Site: Tissue #1 Narrative [facility] - [facility] - 01/13/2022 4:02 PM DRYING MACHINE OPERATOR PACKAGE YARNS Bacterial Culture: Placed in Bactec aero bic and Bactec anaerobic bottles Cyrus Polk M.D. LAB MICROBIOLOGY - GENERAL O RDERABLES Performing Organization Address City/State/ZIP Code Phon e Number [facility] - [address] [place], [place] [address] [facility] [place] [address] [facility] [address] documented in this encounter [...] tablet 1,000 mg Given 12/30/2021 12:02 PM DRYING MACHINE OPERATOR PACKAGE YARNS 1,00 0 mg (TYLENOL) 1,000 mg, oral, Once, On Tue12/30/21 at 1215, For 1 dose, Pre-Op acetaminophen tablet 1,000 mg (TYLENOL) Given 01/01/2022 11:36 AM DRYING MACHINE OPERATOR PACKAGE YARNS 1,000 mg 1,000 mg, oral, Every 6 hours, First dose on Tue12/30/21 at 1800 Given 01/01/2022 6:28 AM DRYING MACHINE OPERATOR PACKAGE YARNS 1,000 mg Given 12/31/2021 11:51 PM DRYING MACHINE OPERATOR PACKAGE YARNS 1,000 mg albuterol nebulizer solution 2.5 mg Given 12/31/2021 4:44 PM DRYING MACHINE OPERATOR PACKAGE YARNS 2.5 mg 2.5 mg, nebulization, Every 6 hours PRN, wheezing, Starting on Tue12/30/21 at 1711, Albuterol nebs were interchanged for albuterol/levalbuterol MDI (same frequency) atorvastatin tablet 80 mg (LIPITOR) Given 12/31/2021 8:57 PM DRYING MACHINE OPERATOR PACKAGE YARNS 80 mg 80 mg, oral, Daily at bedtime, First dose on Tue12/30/21 at 2100 Given 12/30/2021 9:55 PM DRYING MACHINE OPERATOR PACKAGE YARNS 80 mg benzonatate capsule 100 mg (TESSALON PER LES) Given 01/01/2022 3:10 AM DRYING MACHINE OPERATOR PACKAGE YARNS 100 mg 100 mg, oral, 3 times daily PRN, cough, Starting on Tue12/31/21 at 1702, Swallow whole. Do NOT crush, chew or open capsule. Given 12/31/2021 5:39 PM DRYING MACHINE OPERATOR PACKAGE YARNS 100 mg bupivacaine PF 0.2 % 550 mL in NaCl New Bag 01/01/2022 3:15 PM DRYING MACHINE OPERATOR PACKAGE YARNS 6 mL/hr 6 mL/hr 0.9% On-Q pain pump (CB004) 6 mL/hr, nerve catheter, Continuous, Starting on Tue01/01/22 at 1500, PACU & Post-Op, Location: Nerve Catheter Location, Nerve Catheter Location: Interscalene, Device: On-Q Pump bupivacaine PF 0.2 % in Rate/Dose Verify 01/01/2022 1:00 AM DRYING MACHINE OPERATOR PACKAGE YARNS 6 mL/ hr 6 mL/hr NaCl 0.9% 341 mL infusion (MARCAINE) 6 mL/hr, nerve catheter, Continuous, Starting on Tue12/30/21 at 1600, PACU & Post-Op, Nerve Catheter Location: Interscalene, Device: Hospital Infusion Pump Rate/Dose Verify 12/31/2021 12:11 AM DRYING MACHINE OPERATOR PACKAGE YARNS 6 mL/hr 6 mL/hr New Bag 12/30/2021 3:49 PM DRYING MACHINE OPERATOR PACKAGE YARNS 6 mL/hr 6 mL/hr buPROPion XL 24 hr tablet 150 mg (WELLBUTRIN Given 02/2022 8:35 AM DRYING MACHINE OPERATOR PACKAGE YARNS 150 mg XL) 150 mg, oral, Every morning, First dose on Tue12/31/21 at 0900, Swallow whole. Do NOT crush, chew, or split tablet. Given 12/31/2021 8:16 AM DRYING MACHINE OPERATOR PACKAGE YARNS 150 mg calcium carbonate chewable tablet Given 12/31/2021 11: 46 PM DRYING MACHINE OPERATOR PACKAGE YARNS 400 mg of calcium 400 mg of calcium (TUMS) 400 mg of calcium, oral, Every 2 hour PRN, indigestion, Starting on Tue12/30/21 at 1711, Doses listed are in mg of elemental calcium. Take with food. 500 mg calcium carbonate contains 200 mg of elemental calcium. Given 12/31/2021 9:15 PM DRYING MACHINE OPERATOR PACKAGE YARNS 400 mg of calcium carboxymethylcellulose 0.5 % ophthalmic Given 01/01/2022 1:15 AM DRYING MACHINE OPERATOR PACKAGE YARNS 2 drops solution 2 drop (REFRESH PLUS) 2 drop, both eyes, 4 times daily PRN, dry eyes, Starting on Tue12/30/21 at 1711 Given 12/31/2021 12:31 PM DRYING MACHINE OPERATOR PACKAGE YARNS 2 drops Given 12/31/2021 12:23 AM DRYING MACHINE OPERATOR PACKAGE YARNS 2 drops ceFAZolin in dextrose (iso-os) IVPB 2 New Bag 01/01/2022 6:27 AM DRYING MACHINE OPERATOR PACKAGE YARNS 2 g 200 mL/hr g (ANCEF) 2 g, intravenous, at 200 mL/hr, Administer over 30 Minutes, Every 8 hours, First dose on Tue12/30/21 at 2200, Start within 8 hours of last IV dose., Drug Monitoring Program: Pharmacist to adjust medication dosing based on indication and drug clearance factors., Indications: Bone and/or joint infection New Bag 12/31/2021 10:32 PM DRYING MACHINE OPERATOR PACKAGE YARNS 2 g 200 mL/hr New Bag 12/31/2021 2:21 PM DRYING MACHINE OPERATOR PACKAGE YARNS 2 g 200 mL/hr cefTRIAXone in dextrose (iso-osm) IVPB New Bag 01/01/2022 2:38 PM DRYING MACHINE OPERATOR PACKAGE YARNS 2 g 200 mL/hr 2 g (ROCEPHIN) 2 g, intravenous, at 200 mL/hr, Administer over 15 Minutes, Daily before lunch, First dose on Tue01/01/22 at 1345, Drug Monitoring Program: Pharmacist to adjust medication dosing based on indication and drug clearance factors., Indications: Bone and/or joint infection cetirizine tablet 10 mg (ZyrTEC) Given 01/01/2022 8:35 AM DRYING MACHINE OPERATOR PACKAGE YARNS 10 mg 10 mg, oral, 2 times daily, First dose on Tue12/30/21 at 2100, Drug Monitoring Program: Pharmacist to adjust medication dosing based on indication and drug clearance factors. Given 12/31/2021 8:57 PM DRYING MACHINE OPERATOR [employer] YARNS 10 mg Given 12/31/2021 8:16 AM DRYING MACHINE OPERATOR [employer] YARNS 10 mg cholecalciferol (vitamin D3) tablet 25 m cg Given 01/01/2022 8:35 AM DRYING MACHINE OPERATOR [employer]ACKAGE YARNS 25 mcg 25 mcg, oral, Daily, First dose on Tue12/31/21 at 0900, cholecalciferol (vitamin D3) orderable was interchanged for cholecalciferol (vitamin D3) tablet/capsule Given 12/31/2021 8:16 AM DRYING MACHINE OPERATOR [employer]ACKAGE YARNS 25 mcg D5W infusion 10-250 mL/hr, intravenous, [...] 5 mg (VALIUM) Given 12/31/2021 12:31 PM DRYING MACHINE OPERATOR [employer]ACKAGE YARNS 5 mg 5 mg, oral, 4 times daily PRN, muscle spasms, Starting on Tue12/30/21 at 2243 Given 12/31/2021 1:59 AM DRYING MACHINE OPERATOR [employer] YARNS 5 mg diphenhydrAMINE capsule 25 mg (BENADRYL) 25 mg, oral, Daily PRN, itching, Starting on Tue 2 at 0854 diphenhydrAMINE capsule 75 mg (BENADRYL) Given 01/01/2022 8:49 AM DRYING MACHINE OPERATOR [employer]ACKAGE YARNS 75 mg 75 mg, oral, Bedtime PRN, sleep, Starting on Tue12/30/21 at 1715 FLUoxetine capsule 80 mg (PROzac) Given 01/01/2022 8:34 AM DRYING MACHINE OPERATOR [employer] YARNS 80 mg 80 mg, oral, Daily, First dose on Tue12/31/21 at 0900, FLUoxetine orderable was interchanged for FLUoxetine tablet/capsule Given 12/31/2021 8:16 AM DRYING MACHINE OPER[employer] YARNS 80 mg fluticasone furoate 100 mcg/actuation Given 01/01/2022 8:[address] 2 puffs inhaler 2 puff (ARNUITY ELLIPTA) 2 puff, inhalation, 2 times daily, First dose on Tue12/30/21 at 2100, fluticasone furoate 100 mcg was interchanged for fluticasone MDI 110 mcg Given 12/31/2021 9:04 PM DRYING MACHINE OPERATOR [employer] YARNS 2 puffs Given 12/31/2021 8:17 AM DRYING MACHINE OPERATOR [employer] YARNS 2 puffs granisetron (PF) injection 1 mg (KYTRIL) Given 12/30/2021 3:57 PM DRYING MACHINE OPERATOR PACKAGE YARNS 1 mg 1 mg, intravenous, Once as needed, nausea, vomiting, Starting on Tue12/30/21 at 1546, For 1 dose, PACU (only), If patient does not respond to ondansetron or haloperidol. (order of antiemetic administration - ondansetron then haloperidol then granisetron) haloperidol lactate injection 1 mg (HALD OL) Given 12/30/2021 4:31 PM DRYING MACHINE OPERATOR P[employer]AGE YARNS 1 mg 1 mg, intravenous, Every 6 [...] injection 0.2 mg Given 12/30/2021 4:17 PM DRYING MACHINE OPERATOR [employer]ACK[employer] YARNS 0.2 mg (DILAUDID) 0.2 mg, intravenous, Every 5 min PRN, moderate pain or score 4-6 of 10, severe pain or score 7-10 of 10, Starting on Tue12/30/21 at 1546, PACU (only), Up to maximum total dose of 2 mg Given 12/30/2021 4:07 PM DRYING MACHINE OPERATOR PACKAGE YARNS 0.2 mg Given 12/30/2021 3:55 PM DRYING MACHINE OPERATOR [employer] YARNS 0.2 mg HYDROmorphone (PF) injection 0.4 mg Given 01/01/2022 4:56 AM DRYING MACHINE OPERATOR PACKAGE YARNS 0.4 mg (DILAUDID) 0.4 mg, intravenous, Every 2 hour PRN, severe pain or score 7-10 of 10, Starting on Tue12/30/21 at 1711, For 5 doses, May administer if pain is greater than 7 after scheduled and PRN regimen exhausted. If pain remains greater than 7, notify primary service. Given 12/31/2021 11:35 AM DRYING MACHINE OPERATOR PACKAGE YARNS 0.4 mg Given 12/31/2021 4:14 AM DRYING MACHINE OPERATOR [employer] YARNS 0.4 mg ipratropium-albuteroL 0.5-2.5 mg/3 mL nebulizer Given 01/01/2022 3:15 AM DRYING MACHINE OPERATOR [employer] YARNS 3 mL solution 3 mL (DUONEB) 3 mL, nebulization, 4 times daily PRN, shortness of breath, wheezing, Starting on Tue12/30/21 at 1711 ketamine injection 10 mg (KETALAR) Given 12/30/2021 12:38 PM DRYING MACHINE OPERATOR [employer] YARNS 10 mg 10 mg, intravenous, Once, On Tue12/30/21 at 1300, For 1 dose, Pre-Op lactated ringers Rate/Dose Change 01/01/2022 1:00 AM DRYING MACHINE OPERATOR [employer] YARNS 20 mL/hr 20 mL/hr 75 mL/hr, intravenous, Continuous, Starting on Tue12/30/21 at 1715, Until patient has 500cc po intake New Bag 12/31/2021 11:46 PM DRYING MACHINE OPERATOR [employer] YARNS 75 mL/hr 75 mL/hr Rate/Dose Change 12/31/2021 3:55 AM DRYING MACHINE OPERATOR [employer] YARNS 20 mL/hr 20 mL/hr lactated ringers Continued from OR 12/30/2021 4:00 PM DRYING MACHINE OPERATOR [employer] YARNS 75 mL/hr 75 mL/hr 75 mL/hr, intravenous, Continuous, Starting on Tue12/30/21 at 1600, PACU & Post-Op lamoTRIgine tablet 200 mg (LaMICtaL) Given 01/01/2022 8:34 AM DRYING MACHINE OPER[employer] YARNS 200 mg 200 mg, oral, 2 times daily, First dose on Tue12/30/21 at 2100 Given 12/31/2021 8:56 PM DRYING MACHINE OPERATOR [employer] YARNS 200 mg Given 12/31/2021 8:16 AM DRYING MACHINE OPERATOR [employer] YARNS 200 mg midazolam (PF) injection 1 mg (VERSED) Given 12/30/2021 12:38 PM DRYING MACHINE OPERATOR [employer] YARNS 2 mg 1 mg, intravenous, Every 2 [...] 4 mg (ZOFRAN) Given 01/01/2022 1:16 AM DRYING MACHINE OPERATOR [employer] YARNS 4 mg 4 mg, intravenous, Every 6 hours PRN, nausea, vomiting, Starting on Tue12/30/21 at 1711, For 48 hours, Reassess for nausea or vomiting after at least 10 minutes. If nausea or vomiting persists administer next ordered antiemetic medications (order for antiemetic medication administration ondansetron then haloperidol then promethazine). Given 12/31/2021 8:16 AM DRYING MACHINE OPER[employer] YARNS 4 mg oxyCODONE 12 hr tablet 20 mg (OxyCONTIN) Given 12/30/2021 12:35 PM DRYING MACHINE OPERATOR [employer] YARNS 20 mg 20 mg, oral, Once, On Tue12/30/21 at 1300, For 1 dose, Pre-Op, Swallow whole. Do NOT crush, chew, or split tablet. oxyCODONE IR tablet 10 mg (ROXICODONE) Given 12/31/2021 10:43 AM DRYING MACHINE OPERATOR [employer] YARNS 10 mg 10 mg, oral, Every 4 hours PRN, severe pain or score 7-10 of 10, Starting on Tue12/30/21 at 1536 Given 12/31/2021 6:19 AM DRYING MACHINE OPERATOR [employer] YARNS 10 mg Given 12/31/2021 12:22 AM DRYING MACHINE OPERATOR [employer] YARNS 10 mg oxyCODONE IR tablet 10 mg (ROXICODONE) Given 12/31/2021 2:21 PM DRYING MACHINE OPERATOR P[employer] YARNS 10 mg 10 mg, oral, Every 4 hours PRN, severe pain or score 7-10 of 10, Starting on Tue12/31/21 at 1415 oxyCODONE IR tablet 10 mg (ROXICODONE) Given 01/01/2022 2:38 PM DRYING MACHINE OPERATOR PACK[employer] YARNS 10 mg 10 mg, oral, Every 3 hours PRN, severe pain or score 7-10 of 10, Starting on Tue12/31/21 at 1745 Given 01/01/2022 11:35 AM DRYING MACHINE OPERATOR P[employer] YARNS 10 mg Given 01/01/2022 7:07 AM DRYING MACHINE OPERATOR [employer] YARNS 10 mg oxyCODONE IR tablet 5 mg (ROXICODONE) 5 mg, oral, Every 3 hours PRN, moderate pain or score 4-6 of 10, Starting on Clementine 12/31/21 at 1745, If patient is >75 consider changing to 2.5-5mg scale pantoprazole DR tablet 40 mg (PROTONIX) Given 01/01/2022 3:46 PM DRYING MACHINE OPER[employer] YARNS 40 mg 40 mg, oral, 2 times daily before breakfast and dinner, First dose on Tue12/31/21 at 0700, pantoprazole 40 mg oral twice daily was interchanged for esomeprazole 20 or 40 mg oral twice daily Swallow whole. Do NOT crush, chew, or split tablet. Given 01/01/2022 6:29 AM DRYING MACHINE OPERATOR [employer] YARNS 40 mg Given 12/31/2021 4:47 PM DRYING MACHINE OPERATOR [employer] YARNS 40 mg pregabalin capsule 600 mg (LYRICA) Given 01/01/2022 8:34 AM DRYING MACHINE OPERATOR [employer] YARNS 600 mg 600 mg, oral, 2 times daily, First dose on Tue12/30/21 at 2100 Given 12/31/2021 8:56 PM DRYING MACHINE OPERATOR [employer] YARNS 600 mg Given 12/31/2021 8:15 AM DRYING MACHINE OPER[employer] 600 mg QUEtiapine tablet 50 mg (SEROquel) Given 12/31/2021 8:57 PM DRYING MACHINE OPER[employer]ARNS 50 mg 50 mg, oral, Daily at bedtime, First dose on Tue12/30/21 at 2100 Given 12/30/2021 9:55 PM DRYING MACHINE OPERATOR [employer] YARNS 50 mg scopolamine base 1 mg Medication Applied 12/30/2021 12:02 PM 1 patch Behind Left Ear over 3 days 1 patch DRYING MACHINE OPERATOR [employer] YARNS (TRANSDERM SCOP) 1 patch, transdermal, Administer over 72 Hours, Once as needed, nausea and vomiting, Starting on Tue12/30/21 at 1201, For 1 dose, Pre-Op, Contains 1.5 mg to deliver 1 mg/72 hours. sennosides-docusate sodium 8.6-50 mg per Given 01/01/2022 8:35 A M DRYING MACHINE OPERATOR [employer] YARNS 1 tablet tablet 1 tablet (SENOKOT-S) 1 tablet, oral, 2 times daily, First dose on Tue12/30/21 at 2100, Do not give if patient has diarrhea. Given 12/31/2021 8:57 PM DRYING MACHINE OPERATOR [employer] YARNS 1 tablet Given 12/31/2021 8:16 AM DRYING MACHINE OPERATOR [employer] YARNS 1 tablet sodium chloride 0.9 % injection [...] injection 3 mL Given 12/31/2021 8:18 AM DRYING MACHINE OPER[employer]ARNS 3 mL 3 mL, intravenous, Every 12 hours scheduled, First dose on Tue12/30/21 at 2100, PACU & Post-Op, Peripheral Intravenous Catheter and Rapid Infusion Catheter, when no infusion to maintain patency Given 12/30/2021 9:53 PM DRYING MACHINE O[employer] YARNS 3 mL zonisamide capsule 300 mg (ZONEGRAN) Given 01/01/2022 8:35 AM DRYING MACHINE OPERATOR [employer] YARNS 300 mg 300 mg, oral, 2 times daily, First dose on Tue12/30/21 at 2100, Swallow whole. Do NOT crush, chew or open capsule. Given 12/31/2021 8:57 PM DRYING MACHINE O[employer] YARNS 300 mg Given 12/31/2021 8:16 AM DRYING MACHINE OPERATOR [employer] YARNS 300 mg documented in this encounter Active and Recently Administered Medications Times are shown in DRYING MACHINE OPERATOR [employer] YARNS. Scheduled Medication Order 12/30/2021 12/31/2021 01/01/2022 acetaminophen tablet 1,000 mg (TYLENOL) (COMPLETED) 12 (Given - Provider: Manda Barnett RBrittonNBritton) 1,000 mg, oral, Once, On Tue12/30/21 at 1215, For 1 dose, Pre-Op acetaminophen tablet 1,000 mg (TYLENOL) 1828 (Given - Provider: Ezequiel Hernandez R.N.) 0007 (Given - Provider: Viktoriya Givens RBrittonN.)0619 (Given - Provider: Viktoriya Givens R.N.)1135 (Given - Provider: Maci Gonzalez R.N.)1738 (Given - Provider: Fanny Sifuentes R.N.)2351 (Given - Provider: Leticia Pérez, R.N.) 0628 (Given - Provider: Viktoriya Givens R.N.)1136 (Given - Provider: Corrie Toscano R.NBritton) 1,000 mg, oral, Every 6 hours, First dose on Tue12/30/21 at 1800 atorvastatin tablet 80 mg (LIPITOR) 2155 (Given - Prov ider: Ezequiel Hernandez RBetsy) 2056 (Given - Provider: Fanny Sifuentes RBetsy) 80 mg, oral, Daily at bedtime, First dose on Tue12/30/21 at 2100 buPROPion XL 24 hr tablet 150 mg (WELLBUTRIN XL) 0816 (Given - Provider: Maci Gonzalez R.N.) 0835 (Given - Provider: Corrie fall RBetsy) 150 mg, oral, Every morning, First dose on Tue12/31/21 at 0900, Swallow whole. Do NOT crush, chew, or split tablet. ceFAZolin in dextrose (iso-os) IVPB 2 g (ANCEF) (CANCE LED) 2153 (New Bag - Provider: Ezequiel Hernandez R.N.) 0636 (New Bag - Provider: Viktoriya Givens RBrittonNBritton)1421 (New Bag - Provider: Maci Gonzalez R.N.)2232 (New Bag - Provider: Fanny Sifuentes RBetsy) 0627 (New Bag - Provider: Viktoriya dorado [...] 1419 (Given - Provider: Emre Rodriguez APRN, BANK ACCOUNTANT) 2,000 mg (rounded from 1,747.5 mg = [...] 0835 (Given - Provider: Corrie fall R.N.) 10 mg, oral, 2 times daily, [...] (KETALAR) (COMPLETED) 1238 (G iven - Provider: Manda Barnett R.N.) 10 mg, intravenous, Once, On Tue12/30/21 at 1300, For 1 dose, Pre -Op lamoTRIgine tablet 200 mg (LaMICtaL) 5 (Given - Pro vider: Ezequiel Hernandez R.N.) 0816 (Given - Provider: Maci Gonzalez R.N.)6 (Given - Provider: Fanny Sifuentes R.N.) 0834 (Given - Provider: Corrie fall R.N.) 200 mg, oral, 2 times daily, First dose on Tue12/30/21 at 2100 lidocaine 10 mg/mL (1 %) injection 0-10 mL (XYLOCAINE) 0830 (Due) 0-10 mL, intradermal, Once, On Tue at 0830, For 1 dose, Administer intradermally [...] Hernandez R.N.) 2056 (Given - Provider: Sharifa KeenN.) 50 mg, oral, Daily at bedtime, First dose on Tue12/30/21 at 2100 sennosides-docusate sodium 8.6-50 mg per tablet 1 tabl et (SENOKOT-S) 2154 (Given - Provider: Ezequiel Hernandez R.N.) 0816 (Given - Provider: Maci Gonzalez R.N.)2056 (Given - Provider: Fanny Sifuentes R.N.) 0835 (Given - Provider: Corrie Toscano RBrittonN.) 1 tablet, oral, 2 times daily, First [...] Maci Gonzalez R.N.)2103 (Not Given - Provider: Sharifa KeenN. - Reason: Other - Comment: iv fluid [...] Volume Adjustment - Provider: Emre Rodriguez APRN, CRNA) 1,000 mg (1 g), intravenous, at 300 mL/h r, Administer over 20 Minutes, Once, On Tue12/30/21 at 1130, For 1 dose, Intra-Op, Administer in OR upon induction tranexamic acid in NaCl IVPB 1,000 mg (CYKLOKAPRON) (C OMPLETED) 1313 (Given - Provider: Emre Rodriguez APRN, CRNA)1550 (Anesthesia Volume Adjustment - Provider: Emre Rodriguez APRN, CRNA) 1,000 mg (1 g), intravenous, at 300 mL/h r, Administer over 20 Minutes, Once, On Tue12/30/21 at 1130, For 1 dose, Intra-Op, Administer in OR just before dropping tourniquet zonisamide capsule 300 mg (ZONEGRAN) 0275 (Given - Pro vider: Ezequiel Hernandez, R.N.) 0816 (Given - Provider: Maci Gonzalez [...] 1549 (New Bag - Provider: Conchita Carmen RBetsy) 0011 (Rate/Dose Verify - Provider: Kem Givens [...] at 1711 benzonatate capsule 100 mg (TESSALON PERLES) 1739 (Given - Provider: Fanny Sifuentes R.N.) [...] mg of calcium, oral, Every 2 hour SC N, indigestion, Starting on Tue12/30/21 at 1711, [...] ED) 1555 (Given - Provider: Conchita Carmen RBrittonN.)1607 (Given - Provider: Conchita Carmen R.N.)1617 [...] Viktoriya Givens RRebekah.)0414 (Given - Provider: Viktoriya iGvens R.N.)1135 (Given - Provider: Maci Gonzalez R.N.) [...] 0.5-2.5 mg/3 mL nebulizer solution 3 mL (Juice UONEB) 0315 (Given - Provider: Viktoriya Givens [...] (CANCELED) 1238 (Given - Provider: Manda Barnett R.N.) 1 mg, intravenous, Every 2 min [...] (ROXICODONE)(Linked Group 1) 1739 (Given - Provider: Sharifa KeenN.)2053 (Given - Provider: Sharifa KeenN.)2351 (Given - Provider: Leticia Pérez, R.N.) 0303 (Given - Provider: Viktoriya Givens RBrittonN.)0707 (Given - Provider: Viktoriya Givens R.N.)1135 (Given - Provider: Corrie Toscano R.N.)1438 (Given - Provider: Corrie Toscano R.NBritton) 10 mg, oral, Every 3 hours PRN, severe p ain or score 7-10 of 10, Starting on Tue12/31/21 at 1745 oxyCODONE IR tablet 5 mg (ROXICODONE)(Linked Group 1) 1739 (See Alternative - Provider: Fanny Sifuentes R.N.)2053 (See Alternative - Provider: Christiano Keen.N.)2351 (See Alternative - Provider: Leticia Pérez, R.N.) 0303 (See Alternative - Provider: Viktoriya [...] over 3 days 1 patch (TRANSDERM S ENVIRONMENTAL WEB CRAWLER) (CANCELED) 1202 (Medication Applied - Provider: Manda [...] documented as of this encounter Care Teams Seed Corn Production Manager Relationship Specialty Start Date End Date Elsewhere, Pcp PCP - General Family Medicine 12/25/21 documented as of this encounter
--- OUTSIDE RECORDS SUMMARY | 2022-08-01 06:43 | XMS_ITS | Encounter Summary ---
:1965 Author Organization [facility] Address [address] [place] [address] Care Team Providers Name Role Phone Elsewhere, Pcp Primary Care Provider Unavailable Encounter Details Date Type Department Care Team Description 12/30/2021 Anesthesia Event RST [facility] OR Clifford Young M.D. [address] [place] [phone] [address] [facility] Collin Fernández M.D. [address] [place] [phone] [place] [phone] Anesthesia Record Procedure Summary [...] h andoff to the receiving staff during [facility] ch we 1. Identified the patient [...] Ayakalashell Andreyscout howard T, (created via procedure LIQUID SUGAR MELTER, FULFILLMENT REPRESENTATIVE LIQUID SUGAR MELTER, CRN A documentation); Mask Ventilation: Easy mask; [...] you attend yazdanism or Patient refused 2021 pentecostalism services? Do [...] or the highest technical, or vocational p [employer] degree you have received? Sex Assigned at Date Recorded Female 03/01/2019 10:12 AM CDT documented as of this encounter OR Notes Anesthesia Postprocedure Evaluation - Clifford Young M.D. - 12/30/2021 3:55 PM CST Patient: Angie Mosquera Procedure Summary Date: 12/30/21 Room / Location: [address] / [facility] in [place], [place] Anesthesia Start: 1250 Anesthesia Stop: 1550 [...] Post Op nausea/vomiting: none Hydration status: euvolemic BER Anesthesia Procedure Notes - Emre Rodriguez APRN, CRNA - 12/30/2021 2:29 PM SLABBER Associated Order(s): Airway Airway Date/Time: 12/30/2021 1:02 [...] successful Airway event: no complications ATTESTATION STATEMENT BER Anesthesia Preprocedure Evaluation - Clifford Young M.D. - 12/30/2021 1:23 PM CST Preprocedure Anesthesia & H&P Assessment Procedure Summary Anesthesia Start Date/Time: 12/30/21 1250 Procedure: ARTHROPLASTY RESECTION SHOULDER. 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 Location: [address] / [facility] in [place], [place] Providers: Cyrus Polk M.D. Pertinent components [...] with patient /legal guardian or through an fine unhairer. Risks/Benefits/Alternatives of Blood transfusion discussed with patient / legal guardian, including an opportunity to ask questions and/or decline some or all transfusion therapies. The patient / legalguardian consented to the use of all blood products, as deemed medically necessary Approval to Proceed: approved for anesthesia BER Anesthesia Procedure Notes - Clifford Khanna M.D. - 12/30/2021 12:56 PM SLABBER Associated Order(s): Regional Block Regional Block Date/Time: [...] successful procedure Other complications: none ATTESTATION STATEMENT BER documented in this encounter Plan of Treatment Not on filedocumented as of this encounter Procedures Procedure Name Priority Date/Time Associated Comments Diagnosis LDA ANE ENDOTRACHEAL Routine 12/30/2021 1:02 PM R esults for this AIRWAY SLABBER procedure are i n the results section. MC ANE NERVE BLOCK Routine 12/30/2021 12:56 Resul ts for this WITH ULTRASOUND PM SLABBER procedure ar e in the results section. LDA ANE UPPER Routine 12/30/2021 12:56 Results fo r this EXTREMITY PNC PM SLABBER procedure are in the results section. DC US GUIDE PLC NDL Routine 12/30/2021 12:56 Resu lts for this PM SLABBER procedure are i n the results section. DC INJ ANES BRACHIAL Routine 12/30/2021 12:56 Res ults for this PLEXUS CONT PM SLABBER procedure are i n the results section. documented in this encounter Results LDA ANE ENDOTRACHEAL AIRWAY (12/30/2021 1:02 PM SLABBER) Narrative Emre Rodriguez APRN, CRNA - 12/30/2021 1:02 PM SLABBER Emre Rodriguez APRN, CRNA ? 12/30/2021 ??2:30 [...] ATTESTATION STATEMENT Clifford Young M.D. ANESTHESIA ORDERABLES DC INJ ANES BRACHIAL PLEXUS CONT, DC US GUIDE PLC NDL, LDA ANE UPPER EXTREMITY PNC, MC ANE NERVE BLOCK WITH ULTRASOUND (12/30/2021 12:56 PM SLABBER) Narrative Clifford Khanna M.D. - 12/30/2021 12:56 P M SLABBER Clifford Khanna M.D. ? 12/30/2021 12:57 PM [...] 5 % injection Given 12/30/2021 1:52 PM SLABBER 250 mL intravenous, As needed, Starting on Tue12/30/21 at 1352, Anesthesia Intra-op bupivacaine PF 0.5 % (5 mg/mL) injection Given 12/30/2021 12:45 PM SLABBER 10 mL (MARCAINE) intrathecal, As needed, Starting on Tue12/30/21 at 1245, Anesthesia Intra-op ceFAZolin injection 2,000 mg (ANCEF) Given 12/30/2021 2:19 PM SLABBER 2 g 2,000 mg (rounded from 1,747.5 [...] dexAMETHasone injection (DECADRON) Given 12/30/2021 1:09 PM SLABBER 8 mg intravenous, As needed, Starting on Tue12/30/21 at 1309, Anesthesia Intra-op diphenhydrAMINE injection (BENADRYL) Given 12/30/2021 1:32 PM SLABBER 12.5 mg intravenous, As needed, Starting on Tue12/30/21 at 1332, Anesthesia Intra-op ePHEDrine (PF) injection Given 12/30/2021 1:58 PM SLABBER 10 mg intravenous, As needed, Starting on Tue12/30/21 at 1346, Anesthesia Intra-op Given 12/30/2021 1:46 PM SLABBER 5 mg Given 12/30/2021 1:24 PM SLABBER 10 mg fentaNYL injection (SUBLIMAZE) Given 12/30/2021 3:12 PM SLABBER 50 mcg intravenous, As needed, Starting on Tue12/30/21 at 1512, Anesthesia Intra-op ketamine injection (KETALAR) Given 12/30/2021 2:43 PM SLABBER 20 mg intravenous, As needed, Starting on Tue12/30/21 at 1443, Anesthesia Intra-op lactated ringers New Bag 12/30/2021 12:53 PM SLABBER intravenous, Continuous Infusion: Per Instructions PRN, Starting on Tue12/30/21 at 1253, Anesthesia Intra-op ondansetron (PF) injection (ZOFRAN) Given 12/30/2021 3:00 PM SLABBER 4 mg intravenous, As needed, Starting on Tue12/30/21 at 1500, Anesthesia Intra-op phenylephrine 80 mcg/mL in Rate/Dose 12/30/2021 3:00 0.4 mcg/kg/min 20.97 NaCl 0.9% 250 mL infusion Change PM SLABBER mL/hr intravenous, Continuous Infusion: Per Instructions PRN, Starting on Tue12/30/21 at 1404, Anesthesia Intra-op Rate/Dose Change 12/30/2021 2:36 PM SLABBER 0.3 mcg/kg/min 15.728 mL/hr Rate/Dose Change 12/30/2021 2:25 PM SLABBER 0.25 mcg/kg/min 13.106 mL/h r phenylephrine injection Given 12/30/2021 2:31 PM SLABBER 100 mcg intravenous, As needed, Starting on Tue12/30/21 at 1346, Anesthesia Intra-op Given 12/30/2021 2:12 PM SLABBER 100 mcg Given 12/30/2021 2:10 PM SLABBER 100 mcg propofol 10 mg/mL infusion New Bag 12/30/2021 1:15 50 mcg/kg/min 2 0.97 mL/hr (DIPRIVAN) PM SLABBER intravenous, Continuous Infusion: Per Instructions PRN, Starting on Tue12/30/21 at 1315, Anesthesia Intra-op New Bag 12/30/2021 1:09 PM SLABBER 50 mcg/kg/min 20.97 mL/hr propofoL injection (DIPRIVAN) Given 12/30/2021 12:59 PM SLABBER 140 mg intravenous, As needed, Starting on Tue12/30/21 at 1259, Anesthesia Intra-op rocuronium injection (ZEMURON) Given 12/30/2021 1:12 PM SLABBER 10 mg intravenous, As needed, Starting on Tue12/30/21 at 1301, Anesthesia Intra-op Given 12/30/2021 1:01 PM SLABBER 50 mg sugammadex injection (BRIDION) Given 12/30/2021 3:14 PM SLABBER 139.8 mg intravenous, As needed, Starting on [...] documented as of this encounter Care Teams Carbon Paper Coating Machine Setter Relationship Specialty Start Date End Date Elsewhere, Pcp PCP - General Family Medicine 12/25/21 documented as of this encounter
--- OUTSIDE RECORDS SUMMARY | 2022-08-01 06:44 | XMS_ITS | Encounter Summary ---
:1965 Author Organization [facility] Address [address] [place] [id number] Care Team Providers Name Role Phone Unavailable Primary Care Provider Unavailable Reason for Visit Outpatient (Routine) - Closed Specialty Diagnoses / Procedures Referred By Contact Refer red To Contact Neurology Robert Diehl M. D. [facility] [address] [place] [address] [phone] Referral ID Status Reason Start Date Expiration Date Visits Requ ested Visits Authorized [id number] Closed 09/15/2020 09/15/2021 1 1 Encounter Details Date Type Department Care Team Description 11/18/2021 Virtual Visit Department of Robert Diehl Stroke Cere brovascular Neurology jimmy Celaya M.D. Accident Personal [place], [place] [address] [place] [address] History (Primary Dx) [address] [place] [phone] Social History Tobacco Use Types Packs/Day Years [...] you attend caodaism or Patient refused 2021 anabaptism services? Do [...] 19 pandemic patient not seen in a juls-pn-homm manner. This is a 56-year-old woman with [...] antibiotics she has not been seen by [facility] Orthopedics Department who are planning a two [...] by: Robert Diehl M.D. 11/18/21 11:46 AM HUMANITIES COORDINATOR Diagnosis Plan 1. Stroke Cerebrovascular Accident Personal History NITIES COORDINATOR documented in this encounter Plan of Treatment Not on filedocumented as of this encounter Visit Diagnoses Diagnosis Stroke Cerebrovascular Accident Personal History - Primary documented in this encounter Additional Health Concerns Assessment Noted Time PHQ-9 Depression Total Score: 16 02/11/2021 12:00 AM C DT documented as of this encounter
--- OUTSIDE RECORDS SUMMARY | 2022-08-01 06:44 | XMS_ITS | Encounter Summary ---
:1965 Author Organization [facility] Address [address] [place] [address] Care Team Providers Name Role Phone Elsewhere, Pcp Primary Care Provider Unavailable Reason for Visit Reason Comments Pre-op Exam Outpatient (Routine) - Closed Specialty Diagnoses / Procedures Referred By Contact Refer red To Contact Orthopedic Surgery Diagnoses Preoperative Exam Painful Total Joint Arthroplasty Initial (HCC) Alfredo Herrera Rochest [facility] O.P.A.-CBritton [address] [place] [phone] Referral ID Status Reason Start Date Expiration Date Visits Requ ested Visits Authorized [id number] Closed 10/13/2021 10/13/2022 1 1 Encounter Details Date Type Department Care Team Description 12/29/2021 Office Visit Department of Cyrus Polk Shoulde r Left (Primary Dx); Orthopedic Surgery in Lilian Souza Preoperative Exam; [place], [place] [address] [place] [address] Painful Total Joint Arthroplasty Initial ([facility]) [address] [place] [phone] Social History Tobacco Use Types Packs/Day Years [...] you attend quaker or Patient refused 2021 pentecostalism services? Do [...] may involve the use of a medical record consultant made by a company [employer] I or one of my partners have collaborated to design, develop, or improve orthopedic implants, instruments, or products. Both the [facility] and the individual surgeons involved receive royalty payments from the use of those specific devices at other institutions, but no royalties or any other payments are paid for the use of those devices with any [facility] patient. The clinical rationale for the use of those devices as well as the availability and applicability of alternative devices was reviewed. He understands that the final decision for the use of a specific medical record consultant often is made at the time of surgery. All of his questions were answered; he understands and agrees with my approach to device selection and wants to proceed. NT REPRESENTATIVE documented in this encounter Plan of Treatment Not on filedocumented as of this encounter Visit Diagnoses Diagnosis Pain Shoulder Left - Primary Preoperative Exam Painful Total Joint Arthroplasty Initial (HCC) documented in this encounter Additional Health Concerns Infection Onset Date Last Indicated Resolved Time COVID19 Pending 12/29/2021 12/29/2021 12/29/2021 4:20 PM CLIENT REPRESENTATIVE Assessment Noted Time PHQ-9 Depression Total Score: 16 02/11/2021 12:00 AM C DT documented as of this encounter Care Teams Engineering And Development Director Relationship Specialty Start Date End Date Elsewhere, Pcp PCP - General Family Medicine 12/25/21 documented as of this encounter
--- OUTSIDE RECORDS SUMMARY | 2022-08-01 06:44 | XMS_ITS | Encounter Summary ---
:1965 Author Organization [facility] Address [address] [place] [address] Care Team Providers Name Role Phone Unavailable Primary Care Provider Unavailable Reason for Referral MRI/CAT/PET Scan (Routine) - Closed Specialty Diagnoses / Procedures Referred By Contact Refer red To Contact Radiology Diagnoses Painful Total Joint Arthroplasty Initial ([facility]) Alfredo Herrera Rochest er Region Procedures CT Shoulder Left without IV Contrast O.P.A.-C. [address] [place] [phone] Referral ID Status Reason Start Date Expiration Date Visits Requ ested Visits Authorized [id number] Closed 09/07/2021 09/07/2022 1 1 Reason for Visit MRI/CAT/PET Scan (Routine) - Closed Specialty Diagnoses / Procedures Referred By Contact Refer red To Contact Radiology Diagnoses Painful Total Joint Arthroplasty Initial ([facility]) Alfredo Herrera Rochest er Region Procedures CT Shoulder Left without IV Contrast O.P.A.-C. [address] [place] [phone] Referral ID Status Reason Start Date Expiration Date Visits Requ ested Visits Authorized [id number] Closed 09/07/2021 09/07/2022 1 1 Encounter Details Date Type Department Care Team Description 09/25/2021 Hospital Encounter Department of Alfredo Herrera Painful Total Joint Radiology, Emily HillAOmar Arthroplasty Initial Building, in [address] [place] [address] ([facility]) [facility] [phone] [facility] [phone] [place], [place] (Work) [phone] Social History Tobacco Use Types Packs/Day Years [...] you attend orthodoxy or Patient refused 2021 adventism services? Do [...] mg by mouth 0 mg tablet daily. FLUoxetine (PROzac) 40 Take 80 mg by [...] 1 spray as needed. 5 mg THC tiZANidine (ZANAFLEX) 4 Take 4-8 mg by [...] 17 gram/dose needed for oral powder constipation. cholecalciferol (VITAMIN Take 125 mcg by mouth [...] mouth 0 06/17/2022 mg tablet at bedtime. ARTHRITIS PAIN RELIEF, TAKE TWO TABLETS 6 [...] nasal spray hrs. as needed for cravings ondansetron ODT Take 1 tablet by 0 [...]
--- OUTSIDE RECORDS SUMMARY | 2022-08-01 06:44 | XMS_ITS | Encounter Summary ---
:1965 Author Organization [facility] Address [address] [place] [address] Care Team Providers Name Role Phone Unavailable Primary Care Provider Unavailable Reason for Visit MRI/CAT/PET Scan (Routine) - Canceled Specialty Diagnoses / Procedures Referred By Contact Refer red To Contact Radiology Diagnoses Aneurysm Cerebral Unruptured (HCC) Robert Diehl M.D. [facility] Procedures MR Brain Angiogram without IV Contrast [address] [place] [phone] Referral ID Status Reason Start Date Expiration Date Visits V isits Requested Authorized [id number] Canceled 09/15/2020 09/15/2021 1 1 Encounter Details Date Type Department Care Team Description 09/18/2021 Hospital Encounter Department of Robert Diehl ed (Patient: Radiology, Severiano Celaya M.D. Request) [facility], [address] [place], [place] [address] [place] [phone] [place], [place] [phone] (Work) [phone] Social History Tobacco Use Types Packs/Day Years [...] you attend moravian or Patient refused 2021 anabaptist services? Do you belong to any clubs or No 05/17/2022 organizations such as moravian groups, unions, fraSocialDeck or athletic groups, or school groups? How [...]
--- OUTSIDE RECORDS SUMMARY | 2022-08-01 06:44 | XMS_ITS | Encounter Summary ---
:1965 Author Organization [facility] Address [address] [place] [address] Care Team Providers Name Role Phone Unavailable Primary Care Provider Unavailable Reason for Visit Reason Comments Communication results Encounter Details Date Type Department Care Team Description 10/05/2021 Clinical Communication Department of Rossy Polk Orthopedic Surgery Cyrus Souza M.D. (results) in [address] 200 [facility] [phone] Social History Tobacco Use Types Packs/Day Years [...] you attend scientology or Patient refused 2021 hindu services? Do [...] Cyrus Polk M.D. 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 Thank you AL SCIENCE PROFESSOR Telephone Encounter - Cyrus Polk M.D. - 10/05/2021 11:37 AM CST Dx: left infected shoulder arthroplasty Procedure: left resection shoulder arthroplasty UE82, NESHA, and see me Surgery date: December 30 Thank you AL SCIENCE PROFESSOR Telephone Encounter - Radha Suh - 10/05/2021 11:18 AM CST Ms. Mosquera calls for results of labs, CT and aspiration results ( She is disappointment no one has reached out to her and that she had to call for these) Please call her with results to date AL SCIENCE PROFESSOR documented in this encounter Plan of Treatment Not on filedocumented as of this encounter Visit Diagnoses Not on filedocumented in this encounter Additional Health Concerns Assessment Noted Time PHQ-9 Depression Total Score: 16 02/11/2021 12:00 AM C DT documented as of this encounter
--- OUTSIDE RECORDS SUMMARY | 2022-08-01 06:44 | XMS_ITS | Encounter Summary ---
:1965 Author Organization [facility] Address [address] [place] [address] Care Team Providers Name Role Phone Unavailable Primary Care Provider Unavailable Reason for Referral Outpatient (Routine) - Closed Specialty Diagnoses / Procedures Referred By Contact Refer red To Contact Anesthesiology Diagnoses Preoperative Exam Painful Total Joint Arthroplasty Initial (HCC) [facility] [address] [place] [phone] Referral ID Status Reason Start Date Expiration Date Visits Requ ested Visits Authorized [id number] Closed 10/13/2021 10/13/2022 1 1 CH MAKER NOVELTY Outpatient (Routine) - Closed Specialty Diagnoses / Procedures Referred By Contact Refer red To Contact Orthopedic Surgery Diagnoses Preoperative Exam Painful Total Joint Arthroplasty Initial ([facility]) Alfredo Herrera Rochest [facility] Lebron.Fernando-CBritton 200 [place] [address] Referral ID Status Reason Start Date Expiration Date Visits Requ ested Visits Authorized [id number] Closed 10/13/2021 10/13/2022 1 1 CH MAKER NOVELTY Reason for Visit Reason Comments pre op orders L verena Encounter Details Date Type Department Care Team Description 10/12/2021 Clinical Communication Department of Jam pre op orders ([facility] Orthopedic Surgery Lilian Alex) in [place] [address] [address] [place], [place] 200 [facility] [address] [place], [place] [phone] (Work) [phone] Social History Tobacco Use Types Packs/Day Years [...] you attend yarsanism or Patient refused 2021 lutheran services? Do [...] and see me Surgery date: December 30 CH MAKER NOVELTY documented in this encounter Plan of Treatment Scheduled Referrals Name Type Priority Associated Diagnoses Order S [facility] Orthopedic Surgery Outpatient Referral Routine Preoperat lalo Exam Expected: Pre Op (clinic) Painful Total Joint 12/29 Arthroplasty Initial (Approx imate), (HCC) Expires: 10/12/2024 Preoperative Outpatient Referral Routine Preoperative Exam Expected: Evaluation NESHA Painful Total Joint 2021 consult (clinic) Arthroplasty Initial (Ap proximate), (HCC) Expires: 10/12/2024 documented as of this encounter Results (ABNORMAL) Basic Metabolic Panel (12/29/2021 11:34 AM BROOCH MAKER NOVELTY) P athologist Signature Potassium, S 4.7 3.6 - 5.2 12/29/2021 DTL mmol/L 12:38 PM BROOCH MAKER NOVELTY Sodium, S 143 135 - 145 12/29/2021 DTL mmol/L 12:38 PM BROOCH MAKER NOVELTY Chloride, S 108 (H) 98 - 107 12/29/2021 DTL mmol/L 12:38 PM BROOCH [employer]KER NOVELTY Bicarbonate, S 24 22 - 29 12/29/2021 DTL mmol/L 12:38 PM BROOCH MAKER NOVELTY Anion Gap 11 7 - 15 12/29/2021 DTL 12:38 PM BROOCH MAKER NOVELTY BUN (Blood Urea 15 6 - 21 12/29/2021 DTL Nitrogen), S mg/dL 12:38 PM BROOCH MAKER NOVELTY Creatinine 0.83 0.59 - 12/29/2021 DTL 1.04 mg/dL 12:38 PM BROOCH MAKER NOVELTY eGFR-Non 78 >=60 12/29/2021 DTL Black/ mL/min/BSA 12:38 PM BROOCH MAKER NOVELTY Bahraini Comment: ----ADDITIONAL INFORMATION---- Estimated GFR calculated using the 2009 CKD_EPI creatinine equation. eGFR-Black/ 90 >=60 mL/min/BSA 2021 12:38 PM BROOCH MAKER NOVELTY DTL Comment: ----ADDITIONAL INFORMATION---- Estimated GFR calculated using the 2009 CKD_EPI creatinine equation. Calcium, Total, S 9.1 8.6 - 10.0 mg/dL 12/29/2021 12:3 8 PM BROOCH MAKER NOVELTY DTL Glucose, S 90 70 - 140 mg/dL 12/29/2021 12:38 PM BROOCH MAKER NOVELTY DTL Specimen Anatomical Collection Method Collection Time Receive d Time (Source) Location / / Volume Laterality Blood (Blood, 12/29/2021 11:34 12/29/2021 Venous) AM BROOCH MAKER NOVELTY 12:13 PM BROOCH MAKER NOVELTY Alfredo Kamara LAB BLOOD ADD-ON Performing Organization Address City/[facility] Phon e Number [facility] - [address] [place] [address] Laboratories-[address] Type and Screen (with reflex Antibody ID) (12/29/2021 11:34 AM BROOCH MAKER NOVELTY) [facility] [employer] Method Time Signature ABORh A Neg Not applicable 12/29/2021 ETRM 12:59 PM BROOCH MAKER NOVELTY Antibody CANCELED 12/29/2021 ETRM Screen 12:59 PM BROOCH MAKER NOVELTY Comment: Result canceled by the ancerick y. Type & Screen Expiration 02/26/2022 23:59 12/29/19 22 12:59 PM BROOCH MAKER NOVELTY ETRM Testing Location [place] DEFAULT 12/29/2021 11:58 AM BROOCH MAKER NOVELTY ETRM Specimen Anatomical Collection Method Collection Time Receive d Time (Source) Location / / Volume Laterality Blood (Blood, 12/29/2021 11:34 12/29/2021 Venous) AM BROOCH MAKER NOVELTY 11:58 AM BROOCH MAKER NOVELTY Alfredo SchmidtCBritton LAB BLOOD BANK TEST ORDERABL ES Performing Organization Address City/[facility] Phon e Number [facility] - [address] ETRM [address] (ABNORMAL) CBC with Differential, Blood (12/29/2021 11:34 AM BROOCH MAKER NOVELTY) [facility] [employer] Method Time Signature Hemoglobin 11.2 (L) 11.6 - 12/29/2021 DTL 15.0 g/dL 12:02 PM BROOCH MAKER NOVELTY Hematocrit 34.1 (L) 35.5 - 12/29/2021 DTL 44.9 % 12:02 PM BROOCH MAKER NOVELTY Erythrocytes 4.04 3.92 - 12/29/2021 DTL 5.13 12:02 PM BROOCH MAKER NOVELTY x10(12)/L MCV 84.4 78.2 - 12/29/2021 DTL 97.9 fL 12:02 PM BROOCH [employer]KER [employer]OVELTY RBC Distrib Width 20.2 (H) 12.2 - 12/29/2021 DTL 16.1 % 12:02 PM BROOCH MAKER NOVELTY Platelet Count 324 157 - 371 12/29/2021 DTL x10(9)/L 12:02 PM BROOCH MAKER NOVELTY Leukocytes 5.1 3.4 - 9.6 12/29/2021 DTL x10(9)/L 12:02 PM BROOCH MAKER NOVELTY Neutrophils 3.08 1.56 - 12/29/2021 DTL 6.45 12:02 PM BROOCH MAKER NOVELTY x10(9)/L Lymphocytes 1.39 0.95 - 12/29/2021 DTL 3.07 12:02 PM BROOCH MAKER NOVELTY x10(9)/L Monocytes 0.43 0.26 - 12/29/2021 DTL 0.81 12:02 PM BROOCH MAKER NOVELTY x10(9)/L Eosinophils 0.17 0.03 - 12/29/2021 DTL 0.48 12:02 PM BROOCH MAKER NOVELTY x10(9)/L Basophils 0.05 0.01 - 12/29/2021 DTL 0.08 12:02 PM BROOCH MAKER NOVELTY x10(9)/L Specimen Anatomical Collection Method Collection Time Receive d Time (Source) Location / / Volume Laterality Blood (Blood, 12/29/2021 11:34 12/29/2021 Venous) AM BR[employer]OVEL[employer] 11:54 AM BROOCH MAKER NOVELTY Alfredo Kamara LAB BLOOD ADD-ON Performing Organization Address City/State/ZIP Code Phon e Number [facility] - [address] [place], [place] [address] [facility] [place] [place] [address] Laboratories-[facility] [address] SARS Coronavirus 2, Molecular Detection, PCR, Varies Asymptomatic (12/29/2021 11:11 AM BROOCH MAKER NOVELTY) [facility] Method Time Signature COVID-19, Swab, 12/29/2021 DTL PCR, Source Nasopharynx 4:19 PM BROOCH MAKER NOVELTY COVID-19, Undetected Undetected 12/29/2021 DTL PCR, Result 4:19 PM BROOCH MAKER NOVELTY Comment: SARS-CoV-2 RNA absent. This result does not rule out COVID-19 in the patient, as the sensitivity of the test depends o n the timing of the specimen collection and quality of the specimen. Result should be correlated with patient's history and clinical presentat ion. ----ADDITIONAL INFORMATION---- This RT-PCR test using the [employer] SARS-Co V-2 Assay ( [employer] performed on the [employer] Two Module System has received Emergency Use Authorization (EUA) by the U.S. Food and Drug Administration, and is modified from the compliance advisor's instructions with a bridging study. Performance characteristics were verifie d by [facility] in a manner consistent with CLIA requirements. Visit the CDC website: https://www.cdc.g ov/coronavirus/ for the most recent guidelines on [facility] virus testing. Fact Sheet for Healthcare Providers: https://www.fda.gov/media/280569/downloa d Fact Sheet for Patients: https://www.fda.gov/media/239330/downloa d Specimen Anatomical Collection Method Collection Time Receive d Time (Source) Location / / Volume Laterality Varies 12/29/2021 11:11 12/29/2021 (Nasopharynx) AM BROOCH MAKER NOVELTY 12:03 PM BROOCH MAKER NOVELTY Alfredo Kamara LAB MICROBIOLOGY - GENERAL O RDERABLES Performing Organization Address City/State/ZIP Code Phon e Number [facility] - 200 [place], [place] [address] [facility] [place] [address] Laboratories-[facility] [address] DX Shoulder Left 2+ Views (12/29/2021 10:30 AM BROOCH MAKER NOVELTY) Anatomical Region Laterality Modality Upper Extremity, Shoulder, Musculoskeletal RST LOS, Left Digital Radiography Musculoskeletal ARZ LOS, Muskuloskeletal FLA LOS Specimen (Source) Anatomical Collection Method Collection Time Re ceived Time Location / / Volume Laterality 12/29/2021 10:53 AM BROOCH MAKER NOVELTY Impressions 12/29/2021 10:57 AM BROOCH MAKER NOVELTY Demineralization. Left shoulder arthroplasty revision to a reverse TSA. Developing lucency about the glenoi d component screws when compared back to 11/13/20, compatible with loosening. Pre sumed distal clavicle resection. Incompletely imaged instrumented spinal fusion from the upper cervical spine to the upper thoracic spine. Spinal cord st imulator. At least one old healed left posterior rib fracture. Narrative 12/29/2021 10:57 AM BROOCH MAKER NOVELTY EXAM: ??DX SHOULDER LEFT 2+ VIEWS Procedure [...]
--- OUTSIDE RECORDS SUMMARY | 2022-08-01 06:44 | XMS_ITS | Encounter Summary ---
:1965 Author Organization [facility] Address [address] [place] [address] Care Team Providers Name Role Phone Unavailable Primary Care Provider Unavailable Encounter Details Date Type Department Care Team Description 11/25/2021 Clinical Communication Department of Guillermo Patterson, Neurologic Surgery in [place], [place] [address] [place] [address] [address] [place] [phone] Social History Tobacco Use Types Packs/Day Years [...] you attend anabaptism or Patient refused 2021 mu-ism services? Do [...] be seen through ED, or local provider/neurology. documented in this encounter Plan of Treatment Not on filedocumented as of this encounter Visit Diagnoses Not on filedocumented in this encounter Additional Health Concerns Assessment Noted Time PHQ-9 Depression Total Score: 16 02/11/2021 12:00 AM C DT documented as of this encounter
--- OUTSIDE RECORDS SUMMARY | 2022-08-01 06:44 | XMS_ITS | Encounter Summary ---
:1965 Author Organization [facility] Address [address] [place] [address] Care Team Providers Name Role Phone Elsewhere, Pcp Primary Care Provider Unavailable Encounter Details Date Type Department Care Team Description 12/29/2021 Hospital Encounter Department of Alfredo Herrera ative Exam; Radiology, Clifton GonzalesPEmilioCBritton Painful Total Joint Arthroplasty Initial ([facility]) Building, in [address] [place] [phone] [place] [address] [place], [place] (Work[place] [phone] Social History Tobacco Use [...] you attend uatsdin or Patient refused 2021 cheondoism services? Do [...] THC multivit-min/iron/folic/ Take 1 tablet by 0 [id number] (HAIR, SKIN AND mouth daily. NAILS ADVANCED [...] 50 mL (2 g 0 mL 0 /02/202202/11/2022 iso-osm, (ROCEPHIN) 2 total) [...] for this 2+ VIEWS (most inpatients AM ANIMAL CARE ATTENDANT Painful Total Joint proc edure are in and all Arthroplasty the results outpatients) Initial (HCC) section. documented in this encounter Results DX Shoulder Left 2+ Views (12/29/2021 10:30 AM ANIMAL CARE ATTENDANT) Anatomical Region Laterality Modality Upper Extremity, Shoulder, Musculoskeletal RST LOS, Left Digital Radiography Musculoskeletal ARZ LOS, Muskuloskeletal FLA LOS Specimen (Source) Anatomical Collection Method Collection Time Re ceived Time Location / / Volume Laterality 12/29/2021 10:53 AM ANIMAL CARE ATTENDANT Impressions 12/29/2021 10:57 AM ANIMAL CARE ATTENDANT Demineralization. Left shoulder arthroplasty revision to a reverse TSA. Developing lucency about the glenoi d component screws when compared back to 11/13/20, compatible with loosening. Pre sumed distal clavicle resection. Incompletely imaged instrumented spinal fusion from the upper cervical spine to the upper thoracic spine. Spinal cord st imulator. At least one old healed left posterior rib fracture. Narrative 12/29/2021 10:57 AM ANIMAL CARE ATTENDANT EXAM: ??DX SHOULDER LEFT 2+ VIEWS Procedure [...] COVID19 Pending 12/29/2021 12/29/2021 12/29/2021 4:20 PM ANIMAL CARE ATTENDANT Assessment Noted Time PHQ-9 Depression Total Score: 16 02/11/2021 12:00 AM C DT documented as of this encounter Care Teams Animal Cruelty Investigation Supervisor Relationship Specialty Start Date End Date Elsewhere, Pcp PCP - General Family Medicine 12/25/21 documented as of this encounter
--- OUTSIDE RECORDS SUMMARY | 2022-08-01 06:44 | XMS_ITS | Encounter Summary ---
:1965 Author Organization [facility] Address [address] [place] [address] Care Team Providers Name Role Phone Elsewhere, Pcp Primary Care Provider Unavailable Reason for Visit Outpatient (Routine) - Closed Specialty Diagnoses / Procedures Referred By Contact Refer red To Contact Anesthesiology Diagnoses Preoperative Exam Painful Total Joint Arthroplasty Initial (HCC) Alfredo Herrera [facility] O.P.A.-CBritton [address] [place] [phone] Referral ID Status Reason Start Date Expiration Date Visits Requ ested Visits Authorized [id number] Closed 10/13/2021 10/13/2022 1 1 Encounter Details Date Type Department Care Team Description 12/29/2021 Comprehensive Visit Preoperative Cayetano Herrera, O.P.A.-CBritton [address] [place] [address] [phone] Preanesthetic Medical Exam (Primary Dx); Evaluation Center Etta Lyle M.D. 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 Do [...] Comments Blood Pressure 125/78 12/29/2021 1:21 PM SUPERVISOR ENGRAVING Pulse 64 12/29/2021 1:21 PM SUPERVISOR ENGRAVING Temperature 36.1 ??C (97 ??F) 12/29/2021 1:01 PM SUPERVISOR ENGRAVING Respiratory Rate - - Oxygen Saturation 97% 12/29/2021 1:21 PM SUPERVISOR ENGRAVING Inhaled Oxygen Concentration - - Weight 72.6 kg (160 lb 0.9 oz) 12/29/2021 1:01 PM SUPERVISOR ENGRAVING Height 152 cm (4' 11.84) 12/29/2021 1:01 PM SUPERVISOR ENGRAVING Body Mass Index 31.42 12/29/2021 1:01 PM SUPERVISOR ENGRAVING documented in this encounter H&P Notes Etta [...] RCRI score: 1; 6% risk of , [place], or cardiac arrest OBJECTIVE OBJECTIVE PHYSICAL EXAMINATION [...] 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 ([facility]) # Aneurysm Cerebral Unruptured ([facility]) # Dissection Vertebral Artery ([facility]) # 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 Written and verbal instructions given on medication [...] Lyle M.D. PGY-3, Anesthesiology and Perioperative Medicine [facility] RVISOR ENGRAVING documented in this encounter Plan of Treatment [...] COVID19 Pending 12/29/2021 12/29/2021 12/29/2021 4:20 PM SUPERVISOR ENGRAVING Assessment Noted Time PHQ-9 Depression Total Score: 16 02/11/2021 12:00 AM C DT documented as of this encounter Care Teams Line Therapist Relationship Specialty Start Date End Date Elsewhere, Pcp PCP - General Family Medicine 12/25/21 documented as of this encounter
--- OUTSIDE RECORDS SUMMARY | 2022-08-01 06:44 | XMS_ITS | Encounter Summary ---
:1965 Author Organization [facility] Address 200 [place] [address] Care Team Providers Name Role Phone Unavailable Primary Care Provider Unavailable Reason for Referral Outpatient (Routine) - Closed Specialty Diagnoses / Procedures Referred By Contact Refer red To Contact Diagnoses Painful Total Joint Arthroplasty Initial (HCC) Alfredo Herrera Roc[place] er Region Procedures US Major Joint Aspiration and or Injection Left O.P.A.-C. 200 [place] [address] Referral ID Status Reason Start Date Expiration Date Visits Requ ested Visits Authorized [id number] Closed 09/07/2021 09/07/2022 1 1 Outpatient (Routine) - Closed Specialty Diagnoses / Procedures Referred By Contact Refer red To Contact Diagnoses Painful Total Joint Arthroplasty Initial (HCC) Alfredo Herrera [place] er Region Procedures US Musculoskeletal Shoulder Left O.P.A.-C. 200 [place] [address] Referral ID Status Reason Start Date Expiration Date Visits Requ ested Visits Authorized [id number] Closed 09/07/2021 09/07/2022 1 1 Reason for Visit Outpatient (Routine) - Closed Specialty Diagnoses / Procedures Referred By Contact Refer red To Contact Diagnoses Painful Total Joint Arthroplasty Initial (HCC) Alfredo Herrera [place] er Region Procedures US Major Joint Aspiration and or Injection Left O.P.A.-C. [address] [place] [phone] Referral ID Status Reason Start Date Expiration Date Visits Requ ested Visits Authorized [id number] Closed 09/07/2021 09/07/2022 1 1 Encounter Details Date Type Department Care Team Description 09/25/2021 Hospital Encounter Department of Alfredo Herrera Total Joint Radiology, Lebron Gonzales.P.A.-CBritton Arthroplasty Initial Building, in [address] [place] [address] ([facility]) [facility] [phone] [place] [address] [place], [place] (Work) [phone] Social History Tobacco Use [...] you attend voodoo or Patient refused 2021 latter-day services? Do [...] capsule Take 75 mg by mouth 0 03/12/202002/26/2022 at bedtime. cyanocobalamin, vitamin Place 2,500 mcg [...] CDT Joint Arthroplasty this pr ocedure Initial (HCC) are in the results section. CRYSTAL ID, BF Routine 09/25/2021 1:48 Painful Total Results f or PM CDT Joint Arthroplasty this proc edure [...] is visualized wi thin the groove. No jyoce-tendon sheath fluid. Small to moderate subdeltoid burs [...] Differential, Body Fluid (09/25/2021 1:48 PM CDT) [facility] Method Time Signature Fluid Type Left 09/25/2021 DHPM Shoulder 4:50 PM CDT Gross Slightly 09/25/2021 DHPM Appearance bloody 4:50 PM CDT Total 36033 /mcL 09/25/2021 DHPM Nucleated 4:50 PM CDT [...] DHPM malignant cells CDT seen. Reviewed by: Tech 09/25/2021 7:38 PM [facility] CDT Specimen Anatomical Collection Method Collection Time Receive d Time (Source) Location / / Volume Laterality Fluid 09/25/2021 1:48 PM 3:27 CDT PM CDT Alfredo Kamara LAB BODY FLUIDS AND STOOLS O PATERABLES Performing Organization Address City/[facility] Phon e Number [facility] - [address] [place], [place] [address] [facility] [place] [address] [facility] [address] [facility] Acid Fast Smear For Mycobacterium (09/25/2021 1:48 PM CDT) [facility] Method Time Signature Acid Fast Smear Negative. 09/26/2021 DTL For Mycobacterium 2:58 PM CDT Specimen Anatomical Collection Method Collection Time Receive d Time (Source) Location / / Volume Laterality Synovial Fluid, 09/25/2021 1:48 PM 2020 3:42 Left Shoulder CDT PM CDT Comment: Specimen Source Site: Fluid Narrative [facility] - [facility] - 09/26/2021 2:58 PM CDT Fungal and Mycobacteria specimens plated for culture, volume inadequate for optimal recovery. Alfredo Kamara LAB MICROBIOLOGY - GENERAL O PATERASARAH Performing Organization Address City/[facility] Code Phon e Number [facility] - [address] [place], [place] [address] [facility] [place] [address] Gram Stain (09/25/2021 1:48 PM CDT) [facility] Method Time Signature Gram Stain No organisms [...] Address City/State/ZIP Code Phon e Number [facility] - [address] [place], [place] [address] [facility] [place] [address] [facility] [address] (ABNORMAL) Bacterial Culture, Aerobic + Susc (09/25/2021 1:48 PM CDT) Component Value Ref Test Analysis Performed At Patholo gist Range Method Time Signature Bacterial STAPHYLOCOCCUS EPIDERMIDIS 09/30/2021 DT L Culture, One [place] 2:35 PM CDT Aerobic + (A) Susc Comment: Semi-Urgent Result. Semi-Urgent This is a semi-urgent result [facility] - (BENITEZ) [facility] S Specimen Anatomical Collection Method Collection Time Receive d Time (Source) Location / / Volume Laterality Fluid (Synovial 09/25/2021 1:48 PM 2020 3:42 Fluid, Left CDT PM CDT Shoulder) Comment: Specimen Source Site: Fluid Narrative [facility] - [facility] - 09/30/2021 2:35 PM CDT Fungal [...] Alfredo Kamara LAB MICROBIOLOGY - GENERAL O RDSONIA Performing Organization Address City/[facility] Phon e Number [facility] - 200 [place], [place] [address] [place], [place] [phone] [place] [address] Bacterial Culture, Anaerobic + Susc (09/25/2021 1:48 PM CDT) [facility] Method Time Signature Bacterial No growth 10/09/2021 DTL Culture, after 14 7:41 AM CONCESSIONS MANAGER Anaerobic + days of Susc incubation. Specimen Anatomical Collection Method Collection Time Receive d Time (Source) Location / / Volume Laterality Fluid (Synovial 09/25/2021 1:48 PM 2020 3:42 Fluid, Left CDT PM CDT Shoulder) Comment: Specimen Source Site: Fluid Narrative [facility] - 10/09/2021 7:41 AM CONCESSIONS MANAGER Fungal and Mycobacteria specimens plated for culture, volume inadequate for optimal recovery. Alfredo Kamara LAB MICROBIOLOGY - GENERAL O MARY Performing Organization Address [facility] Phon e Number [facility] - [address] (ABNORMAL) [facility] Bacteria PCR+Sequencing (09/25/2021 1:48 PM CDT) Component Value Ref Test Analysis Performed At [facility] Method Time Signature Broad Range This test was developed and its performance characteri stics 10/06/2021 DTL Bacteria determined by [facility] in a manner consistent with 1:24 PM CONCESSIONS MANAGER PCR+Sequencin CLIA requirements. This test has not been cleared or g approved by the U.S. Food and Drug Administration. (A) Broad Range STAPHYLOCOCCUS EPIDERMIDIS 10/06/2021 DTL Bacteria DNA detected 1:24 PM CONCESSIONS MANAGER PCR+Sequencin (A) g Comment: Semi-Urgent Result. Semi-Urgent This is a semi-urgent result [facility] - () [facility] Specimen Anatomical Collection Method Collection Time Receive d Time (Source) Location / / Volume Laterality Fluid (Synovial 09/25/2021 1:48 PM 2020 3:42 Fluid, Left CDT PM CDT Shoulder) Comment: Specimen Source Site: Fluid Narrative [facility] - 10/06/2021 1:24 PM CONCESSIONS MANAGER Fungal and Mycobacteria specimens plated for culture, volume inadequate for optimal recovery. Alfredo Kamara LAB MICROBIOLOGY - GENERAL O RDBRADLEYBLES Performing Organization Address [facility] Phon e Number [facility] - [address] [place] [address] [address] Crystal Identification, Synovial Fluid (09/25/2021 1:48 PM CDT) Analysis Performed At [facility] Time Signature Crystal ID, None seen None [...] AND STOOLS O RDERABLES Performing Organization Address City/[facility] Code Phon e Number [facility] - 200 [place], [place] [address] Fungal Culture, Routine (09/25/2021 1:48 PM CDT) [facility] gist Method Time Signature Fungal No growth 10/20/2021 [facility] Culture, after 24 1:01 AM CONCESSIONS MANAGER Routine days of incubation. Specimen Anatomical Collection Method Collection Time Receive d Time (Source) Location / / Volume Laterality Fluid (Synovial 09/25/2021 1:48 PM 2020 3:42 Fluid, Left CDT PM CDT Shoulder) Comment: Specimen Source Site: Fluid Narrative [facility] - 10/20/2021 1:01 AM CONCESSIONS MANAGER Fungal and Mycobacteria specimens plated for culture, volume inadequate for optimal recovery. Alfredo Foote. LAB MICROBIOLOGY - GENERAL O RDERABLES Performing Organization Address [facility] Phon e Number [facility] - [address] Mycobacterial Culture (09/25/2021 1:48 PM CDT) [facility] gist Method Time Signature Mycobacterial No growth 11/07/2021 DTL Culture after 42 1:03 AM CONCESSIONS MANAGER days of incubation . Specimen Anatomical Collection Method Collection Time Receive d Time (Source) Location / / Volume Laterality Fluid (Synovial 09/25/2021 1:48 PM 2020 3:42 Fluid, Left CDT PM CDT Shoulder) Comment: Specimen Source Site: Fluid Narrative [facility] - [facility] - 11/07/2021 1:03 AM CONCESSIONS MANAGER Fungal and Mycobacteria specimens plated for culture, volume inadequate for optimal recovery. Alfredo Kamara LAB MICROBIOLOGY - GENERAL O MARY Performing Organization Address [facility] Phon e Number [facility] - [id number] [place] [address] documented in this encounter Visit Diagnoses Diagnosis [...]
--- OUTSIDE RECORDS SUMMARY | 2022-08-01 06:44 | XMS_ITS | Encounter Summary ---
:1965 Author Organization [facility] Address [address] [place] [address] Care Team Providers Name Role Phone Unavailable Primary Care Provider Unavailable Reason for Referral MRI/CAT/PET Scan (Routine) - Authorized Specialty Diagnoses / Procedures Referred By Contact Refer red To Contact Radiology Diagnoses Stroke Cerebrovascular Accident Personal History Occlusion Vertebral Artery With lnfarction (HCC) Robert Diehl M.D. [facility] Procedures MR Neck Angiogram without and with IV Contrast [address] [place] [address] Referral ID Status Reason Start Date Expiration Date Visits V isits Requested Authorized [id number] Authorized 12/10/2021 12/10/2022 1 1 RAM INSTRUCTOR Outpatient (Routine) - Authorized Specialty Diagnoses / Procedures Referred By Contact Refer red To Contact Diagnoses Aneurysm Cerebral Unruptured (HCC) Robert Diehl M.D. [facility] Procedures PM Device interrogation (clinic) [address] [place] [address] Referral ID Status Reason Start Date Expiration Date Visits V isits Requested Authorized [id number] Authorized 12/10/2021 12/10/2022 1 1 RAM INSTRUCTOR MRI/CAT/PET Scan (Routine) - Authorized Specialty Diagnoses / Procedures Referred By Contact Refer red To Contact Radiology Diagnoses Aneurysm Cerebral Unruptured (HCC) Robert Diehl M.D. [facility] Procedures MR Brain Angiogram without IV Contrast [address] [place] [address] Referral ID Status Reason Start Date Expiration Date Visits V isits Requested Authorized [id number] Authorized 12/10/2021 12/10/2022 1 1 RAM INSTRUCTOR Reason for Visit Reason Comments Michel Encounter Details Date Type Department Care Team Description 12/10/2021 Clinical Communication Department of Robert Diehl W8B/[facility] Neu[facility] in [place], [place] [address] [facility] [address] [place] [address] [phone] Social History Tobacco Use Types Packs/Day Years [...] you attend anglican or Patient refused 2021 synagogue services? Do [...] 2:58 PM CST Signed and thank you. RAM INSTRUCTOR documented in this encounter Plan of Treatment Scheduled Orders Name Type Priority Associated Diagnoses Order S chedule MR Brain Angiogram Imaging RAD - Routine Aneurysm Cerebral Exp ected: without IV Contrast (most inpatients Unruptured ([facility]) 05/03/2022, and all Expires: outpatients) 03/10/2023 PM Device Procedures Routine Aneurysm Cerebral Expected: interrogation Unruptured ([facility]) 12/29/2021 , (clinic) Expires: 03/10/2023 MR Neck Angiogram Imaging RAD - Routine Stroke Cerebrovascular Expected: without and with IV (most inpatients Accident Personal 05/03/2022 Contrast and all History (Approximate), outpatients) Occlusion Vertebral Expires: Artery With lnfarction 03/10 ([facility]) documented as of this encounter Visit Diagnoses Diagnosis Stroke Cerebrovascular Accident Personal History - Primary Aneurysm Cerebral Unruptured ([facility]) Occlusion Vertebral Artery With lnfarcti on ([facility]) documented in this encounter Additional Health Concerns Assessment Noted Time PHQ-9 Depression Total Score: 16 02/11/2021 12:00 AM C DT documented as of this encounter
--- OUTSIDE RECORDS SUMMARY | 2022-08-01 06:44 | XMS_ITS | Encounter Summary ---
:1965 Author Organization [facility] Address [address] [place] [address] Care Team Providers Name Role Phone Unavailable Primary Care Provider Unavailable Encounter Details Date Type Department Care Team Description 10/13/2021 Clinical Communication Preoperative Umu Gan Evaluation Center in [place], [place] [address] [place] [address] [place] [phone] Social History Tobacco Use Types Packs/Day Years [...] you attend buddhism or Patient refused 2021 confucianism services? Do [...] Umu Gan R.R.T. - 10/13/2021 11:09 AM BEADER Surgical Risk Score: 3 Risk Identifiers: 4+ ??? TIA ??? PFO ??? Hx of Arterial Thrombosis ??? Asthma ER documented in this encounter Plan of Treatment Not on filedocumented as of this encounter Visit Diagnoses Not on filedocumented in this encounter Additional Health Concerns Assessment Noted Time PHQ-9 Depression Total Score: 16 02/11/2021 12:00 AM C DT documented as of this encounter
--- OUTSIDE RECORDS SUMMARY | 2022-08-01 06:44 | XMS_ITS | Encounter Summary ---
:1965 Author Organization [facility] Address [address] [place] [address] Care Team Providers Name Role Phone Unavailable Primary Care Provider Unavailable Reason for Visit Reason Comments Michel Encounter Details Date Type Department Care Team Description 11/25/2021 Clinical Communication Department of Chani Benjamin Neurologic Surgery in [place] Jang, [place], [place] Ph.D. [address] [facility] 200 [place] [address] [phone] Social History Tobacco Use Types Packs/Day Years [...] you attend denominational or Patient refused 2021 evangelical services? Do [...] for your help. 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
--- OUTSIDE RECORDS SUMMARY | 2022-08-01 06:44 | XMS_ITS | Encounter Summary ---
:1965 Author Organization [facility] Address [address] [place] [address] Care Team Providers Name Role Phone Unavailable Primary Care Provider Unavailable Reason for Visit Reason Comments Pain Appointment Request (Routine) - Closed Specialty Diagnoses / Procedures Referred By Contact Refer red To Contact Orthopedic Surgery Diagnoses Arthroplasty Total Shoulder Replacement Status Post Left David Cohn M.D. [address] [facility] [address] [place] [address] Referral ID Status Reason Start Date Expiration Date Visits Requ ested Visits Authorized [id number] Closed 09/04/2021 09/04/2022 1 1 Encounter Details Date Type Department Care Team Description 09/23/2021 Comprehensive Visit Department of Cyrus Polk Pain Shoulder Left Orthopedic Surgery Lilian Souza (Primary Dx) in [address] [place] [address] [place], [place] [phone] (Work) [phone] Social History Tobacco Use Types Packs/Day Years [...] you attend restorationist or Patient refused 2021 mu-ism services? Do you belong to any clubs or No 05/17/2022 organizations such as restorationist groups, unions, fraBetabrand or athletic groups, or school groups? How [...]
--- OUTSIDE RECORDS SUMMARY | 2022-08-01 06:44 | XMS_ITS | Encounter Summary ---
:1965 Author Organization [facility] Address [address] [place] [address] Care Team Providers Name Role Phone Unavailable Primary Care Provider Unavailable Encounter Details Date Type Department Care Team Description 09/23/2021 Hospital Encounter Department of Alfredo Herrera Total Joint Laboratory Medicine A, O.PEmilioCBritton Arthroplasty Initial and Pathology, [address] [place] [address] ([facility]) [facility] in [facility] [address] [place] [phone] 200 [facility] (Work) [place], [place] [phone] [address] (Fax) [phone] Social History Tobacco Use Types Packs/Day Years [...] you attend faith or Patient refused 2021 mu-ism services? Do [...] (ABNORMAL) Sedimentation Rate (09/23/2021 9:07 AM CDT) [facility] Method Time Signature Sedimentation 31 (H) 2 - 22 09/23/2021 DTL Rate, B mm/h 10:46 AM CDT Specimen Anatomical Collection Method Collection Time Receive d Time (Source) Location / / Volume Laterality Blood (Blood, 09/23/2021 9:07 AM 09/23/20 9:30 Venous) CDT AM CDT Alfredo Kamara LAB BLOOD ADD-ON Performing Organization Address City/[facility] Code Phon e Number [facility] - 200 [place], [place] [address] [place] [address] [place] [address] CRP (C-Reactive Protein) (09/23/2021 9:07 AM CDT) P athologist Signature C-Reactive <3.0 <=8.0 mg/L 09/23/2021 DTL Protein (CRP), 10:30 AM CDT S Specimen Anatomical Collection Method Collection Time Receive d Time (Source) Location / / Volume Laterality Blood (Blood, 09/23/2021 9:07 AM 09/23/20 9:57 Venous) CDT AM CDT Alfredo Kamara LAB BLOOD ADD-ON Performing Organization Address City/[facility] Code Phon e Number [facility] - 200 [place], [place] [address] [facility] [place] [place] [address] Laboratories-[address] (ABNORMAL) CBC with Differential, Blood (09/23/2021 9:07 AM CDT) [facility] Method Time Signature Hemoglobin 10.1 (L) 11.6 [...] Phon e Number [facility] - [address] [place], [place] [address] [facility] [place] [place] [address] Laboratories-[facility] [address] documented in this encounter Visit Diagnoses Diagnosis Painful Total Joint Arthroplasty Initial (HCC) documented in this encounter Additional Health Concerns Assessment Noted Time PHQ-9 Depression Total Score: 16 02/11/2021 12:00 AM C DT documented as of this encounter
--- OUTSIDE RECORDS SUMMARY | 2022-08-01 06:44 | XMS_ITS | Encounter Summary ---
:1965 Author Organization [facility] Address [address] [place] [address] Care Team Providers Name Role Phone Unavailable Primary Care Provider Unavailable Reason for Referral Outpatient (Routine) - Closed Specialty Diagnoses / Procedures Referred By Contact Refer red To Contact Diagnoses Painful Total Joint Arthroplasty Initial (HCC) Alfredo Herrera [place] Procedures US Major Joint Aspiration and or Injection Left O.P.A.-C. 200 [place] [address] Referral ID Status Reason Start Date Expiration Date Visits Requ ested Visits Authorized [id number] Closed 09/07/2021 09/07/2022 1 1 Outpatient (Routine) - Closed Specialty Diagnoses / Procedures Referred By Contact Refer red To Contact Diagnoses Painful Total Joint Arthroplasty Initial (HCC) Alfredo Hrerera [place] Procedures US Musculoskeletal Shoulder Left O.P.A.-C. 200 [place] [address] Referral ID Status Reason Start Date Expiration Date Visits Requ ested Visits Authorized [id number] Closed 09/07/2021 09/07/2022 1 1 MRI/CAT/PET Scan (Routine) - Closed Specialty Diagnoses / Procedures Referred By Contact Refer red To Contact Radiology Diagnoses Painful Total Joint Arthroplasty Initial (HCC) Alfredo Herrera [place] Procedures CT Shoulder Left without IV Contrast O.P.A.-C. [address] [place] [address] Referral ID Status Reason Start Date Expiration Date Visits Requ ested Visits Authorized [id number] Closed 09/07/2021 09/07/2022 1 1 Reason for Visit Reason Comments Pre-visit Testing Orders L shldr - prev. TSA Encounter Details Date Type Department Care Team Description 09/07/2021 Clinical Communication Department of Jam, Pre- visit Testing Orthopedic Surgery Cyrus Souza M.D. Orders (L shldr - in [address] prev. TSA) [place], [place] [address] [place] [address] [place], [place] [phone] (Work) [phone] Social History Tobacco Use Types Packs/Day Years [...] you attend hindu or Patient refused 2021 temple services? Do [...] PROCEDURES Mycobacterial Culture (09/25/2021 1:48 PM CDT) [facility] Method Time Signature Mycobacterial No growth 11/07/2021 DTL Culture after 42 1:03 AM DIAZO TECHNICIAN days of incubation . Specimen Anatomical Collection Method Collection Time Receive d Time (Source) Location / / Volume Laterality Fluid (Synovial 09/25/2021 1:48 PM 2020 3:42 Fluid, Left CDT PM CDT Shoulder) Comment: Specimen Source Site: Fluid Narrative [facility] - [facility] - 11/07/2021 1:03 AM DIAZO TECHNICIAN Fungal and Mycobacteria specimens plated for culture, volume inadequate for optimal recovery. Alfredo Kamara LAB MICROBIOLOGY - GENERAL O RDERABLES Performing Organization Address City/State/ZIP Code Phon e Number [facility] - [address] [place], [place] [address] [facility] [place] [address] [facility] [address] Fungal Culture, Routine (09/25/2021 1:48 PM CDT) [place] Method Time Signature Fungal No growth 10/20/2021 DTL Culture, after 24 1:01 AM DIAZO TECHNICIAN Routine days of incubation. Specimen Anatomical Collection Method Collection Time Receive d Time (Source) Location / / Volume Laterality Fluid (Synovial 09/25/2021 1:48 PM 2020 3:42 Fluid, Left CDT PM CDT Shoulder) Comment: Specimen Source Site: Fluid Narrative [facility] - 10/20/2021 1:01 AM DIAZO TECHNICIAN Fungal and Mycobacteria specimens plated for culture, volume inadequate for optimal recovery. Alfredo Kamara LAB MICROBIOLOGY - GENERAL O RDERABLES Performing Organization Address [facility] Phon e Number [facility] - [address] [place], [place] [address] [facility] [place] [address] [facility]-[address] Crystal Identification, Synovial Fluid (09/25/2021 1:48 PM CDT) [facility] Time Signature Crystal ID, None seen None seen 09/25/2021 [facility] Synovial Fl 4:56 PM CDT Reviewed by: Tech 09/25/2021 [facility] 4:56 PM CDT Specimen Anatomical Collection Method Collection Time Receive d Time (Source) Location / / Volume Laterality Fluid (Synovial 09/25/2021 1:48 PM 2020 3:27 Fluid, Left CDT PM CDT Shoulder) Alfredo Kamara LAB BODY FLUIDS AND STOOLS O RDERABLES Performing Organization Address City/[facility] Phon e Number [facility] - [address] [place], [place] [address] [place] [address] (ABNORMAL) [place] Bacteria PCR+Sequencing (09/25/2021 1:48 PM CDT) Component Value Ref Test Analysis Performed At [facility] gist Range Method Time Signature Broad Range This test was developed and its performance characteri stics 10/06/2021 DTL Bacteria determined by [facility] in a manner consistent with 1:24 PM DIAZO TECHNICIAN PCR+Sequencin CLIA requirements. This test has not been cleared or g approved by the U.S. Food and Drug Administration. (A) Broad Range STAPHYLOCOCCUS EPIDERMIDIS 10/06/2021 DTL Bacteria DNA detected 1:24 PM DIAZO TECHNICIAN PCR+Sequencin (A) g Comment: Semi-Urgent Result. Semi-Urgent This is a semi-urgent result [facility] - () [facility] Specimen Anatomical Collection Method Collection Time Receive d Time (Source) Location / / Volume Laterality Fluid (Synovial 09/25/2021 1:48 PM 2020 3:42 Fluid, Left CDT PM CDT Shoulder) Comment: Specimen Source Site: Fluid Narrative [facility] - 10/06/2021 1:24 PM DIAZO TECHNICIAN Fungal and Mycobacteria specimens plated for culture, volume inadequate for optimal recovery. Alfredo Kamara LAB MICROBIOLOGY - GENERAL O MARY Performing Organization Address [facility] Phon e Number [facility] - [address] Bacterial Culture, Anaerobic + Susc (09/25/2021 1:48 PM CDT) [facility] Method Time Signature Bacterial No growth 10/09/2021 DTL Culture, after 14 7:41 AM DIAZO TECHNICIAN Anaerobic + days of Susc incubation. Specimen Anatomical Collection Method Collection Time Receive d Time (Source) Location / / Volume Laterality Fluid (Synovial 09/25/2021 1:48 PM 2020 3:42 Fluid, Left CDT PM CDT Shoulder) Comment: Specimen Source Site: Fluid Narrative [facility] - 10/09/2021 7:41 AM DIAZO TECHNICIAN Fungal and Mycobacteria specimens plated for culture, volume inadequate for optimal recovery. Alfredo Kamara LAB MICROBIOLOGY - GENERAL O MARY Performing Organization Address City/[facility] Phon e Number [facility] - [address] (ABNORMAL) Bacterial Culture, Aerobic + Susc (09/25/2021 1:48 PM CDT) Component Value Ref Test Analysis Performed At [facility] Range Method Time Signature Bacterial STAPHYLOCOCCUS EPIDERMIDIS 09/30/2021 DT L Culture, One [place] 2:35 PM CDT Aerobic + (A) Susc Comment: Semi-Urgent Result. Semi-Urgent This is a semi-urgent result [facility] () [facility] Specimen Anatomical Collection Method Collection Time Receive d Time (Source) Location / / Volume Laterality Fluid (Synovial 09/25/2021 1:48 PM 2020 3:42 Fluid, Left CDT PM CDT Shoulder) Comment: Specimen Source Site: Fluid Narrative [facility] - 09/30/2021 2:35 PM CDT Fungal [...] City/State/ZIP Code Phon e Number [facility] - [address] [place], [place] [address] [place] [address] [facility] [address] Gram Stain (09/25/2021 [...] City/State/ZIP Code Phon e Number [facility] - [address] [place], [place] [address] [facility] [place] [address] [facility] [address] Shoulder [...] 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 Tiny nonobstructing left renal calculus. [...] (ABNORMAL) Sedimentation Rate (09/23/2021 9:07 AM CDT) [facility] gist Method Time Signature Sedimentation 31 (H) 2 - 22 09/23/2021 DTL Rate, B mm/h 10:46 AM CDT Specimen Anatomical Collection Method Collection Time Receive d Time (Source) Location / / Volume Laterality Blood (Blood, 09/23/2021 9:07 AM 09/23/20 21 9:30 Venous) CDT AM CDT Alfredo Kamara LAB BLOOD ADD-ON Performing Organization Address [facility] Phon e Number [facility] - [address] [place], [place] [address] [facility] [place] [address] CRP (C-Reactive Protein) (09/23/2021 9:07 AM CDT) P athologist Signature C-Reactive <3.0 <=8.0 mg/L 09/23/2021 DTL Protein (CRP), 10:30 AM CDT S Specimen Anatomical Collection Method Collection Time Receive d Time (Source) Location / / Volume Laterality Blood (Blood, 09/23/2021 9:07 AM 09/23/20 21 9:57 Venous) CDT AM CDT Alfredo Kamara LAB BLOOD ADD-ON Performing Organization Address [facility] Phon e Number [facility] - [address] [place], [place] [address] [place] [address] (ABNORMAL) CBC with Differential, Blood (09/23/2021 9:07 [...] City/State/ZIP Code Phon e Number [facility] - [address] [place], [place] [address] [facility] [place] [address] [facility] [address] documented in this [...]
--- OUTSIDE RECORDS SUMMARY | 2022-08-01 06:44 | XMS_ITS | Encounter Summary ---
:1965 Author Organization [facility] Address [address] [place] [address] Care Team Providers Name Role Phone Unavailable Primary Care Provider Unavailable Encounter Details Date Type Department Care Team Description 09/23/2021 Hospital Encounter Department of Alfredo Herrera Total Joint Radiology, Anh Gonzales Arthroplasty Initial Building, in [address] [place] [address] ([facility]) [facility] [phone] [place] [address] [place], [place] (Work) [phone] Social History Tobacco Use Types Packs/Day Years [...] you attend shinto or Patient refused 2021 confucianist services? Do [...]
--- NOTE | 2022-08-01 06:45 | ED.GENADULT ---
HPI - General Adult General Time Seen by Provider: 06:40 <Carmelo Villanueva MD - Last Filed: 08/01/22 19:50> Date Seen: 08/01/22 <Carmelo Villanueva MD - Last Filed: 08/01/22 19:50> Chief complaint: Fall/Minor Trauma <Carmelo Villanueva MD - Last Filed: 08/01/22 19:50> Stated complaint: Possible stroke <Carmelo Villanueva MD - Last Filed: 08/01/22 19:50> Time Seen by Provider: 08/01/22 06:35 <Carmelo Villanueva MD - Last Filed: 08/01/22 19:50> Source: patient and EMS <Carmelo Villanueva MD - Last Filed: 08/01/22 19:50> Mode of arrival: EMS <Carmelo Villanueva MD - Last Filed: 08/01/22 19:50> Limitations: altered mental status <Carmelo Villanueva MD - Last Filed: 08/01/22 19:50> History of Present Illness HPI narrative: [age] comes in today with falls and weakness. Patient is very poor historian. Apparently she has had several falls this morning. She has a history of prior CVA in says her balance is normally bad but she seems to think it is worse today. She denies any speech difficulty, numbness or tingling in the arms or legs, or weakness. She is currently taking aspirin but does not think she is taking other blood thinners. Denies recent illness. Did hit her head but denies loss of consciousness. <Carmelo Villanueva MD - Last Filed: 08/01/22 19:50> Related Data Home medications: Home Medications Medication Instructions Recorded Confirmed cholecalciferol (vitamin D3) 125 5,000 unit PO DAILY 06/07/22 07/22/22 mcg (5,000 unit) tablet cyanocobalamin (vitamin B-12) 5,000 mcg PO DAILY 06/07/22 07/22/22 2,500 mcg tablet esomeprazole magnesium 40 mg 40 mg PO DAILY 06/07/22 07/22/22 capsule,delayed release magnesium gluconate 27.5 mg 27.5 mg PO DAILY 06/07/22 07/22/22 magnesium (500 mg) tablet oxycodone 5 mg tablet 5 mg PO QID 06/07/22 07/22/22 ropinirole 2 mg tablet 2 mg PO .Bedtime 06/07/22 07/22/22 diclofenac sodium 1 % topical gel 2 g topical 07/22/22 07/22/22 Previous Rx's Medication Instructions Recorded acetaminophen 650 mg 1,300 mg PO .Every 8 Hours #180 06/08/22 tablet,extended release tabs lamotrigine 200 mg tablet 200 mg PO BID #60 tabs 06/08/22 valacyclovir 500 mg tablet 500 mg PO DAILY cold sores #90 tabs 06/14/22 albuterol sulfate 90 mcg/actuation 2 puff inhalation Q6H PRN 07/23/22 aerosol inhaler (Ventolin HFA) shortness of breath or wheezing #8.5 grams aspirin 81 mg tablet,delayed 81 mg PO QDAY #90 tabs 07/23/22 release bupropion HCl 300 mg 24 hr tablet, 300 mg PO QDAY #90 tabs 07/23/22 extended release cetirizine 10 mg tablet (Zyrtec) 10 mg PO QDAY #90 tabs 07/23/22 pregabalin 150 mg capsule 150 mg PO BID #120 caps 07/23/22 pregabalin 300 mg capsule 300 mg PO BID #120 caps 07/23/22 quetiapine 50 mg tablet 50 mg PO .Bedtime sleep #30 tabs 07/23/22 rizatriptan 10 mg tablet 10 mg PO ONCE PRN migraine 07/23/22 headache #10 tabs sumatriptan 5 mg/actuation nasal 5 mg intranasal ONCE PRN migraine 07/23/22 spray headache #6 ea tizanidine 4 mg tablet 4 mg PO Q8H PRN muscle spasticity 07/23/22 #30 tabs <Carmelo Villanueva MD - Last Filed: 08/01/22 19:50> Allergies/adverse reactions: Allergies Allergy/AdvReac Type Severity Reaction Status Date / Time acyclovir Allergy Mild rash Verified 08/01/22 07:19 shingles like benzoin Allergy Mild rash, Verified 08/01/22 07:19 blisters, itching Cephalosporins Allergy Mild Rash Verified 08/01/22 07:19 penicillin V Allergy Mild Rash Verified 08/01/22 07:19 adhesive Allergy Unknown contact Verified 08/01/22 07:19 dermatitis to tape amoxicillin Allergy Unknown Rash Verified 08/01/22 07:19 baclofen Allergy Unknown Rash Verified 08/01/22 07:19 cefaclor Allergy Unknown Rash Verified 08/01/22 07:19 chlorhexidine Allergy Unknown contact Verified 08/01/22 07:19 dermatitis fentanyl Allergy Unknown Hallucinati Verified 08/01/22 07:19 ng gabapentin Allergy Unknown muscular Verified 08/01/22 07:19 twitch, slurred speech nortriptyline Allergy Unknown Palpitation Verified 08/01/22 07:19 s NSAIDS (Non-Steroidal Allergy Unknown gastric Verified 08/01/22 07:19 Anti-Inflamma bypass silver Allergy Unknown contact Verified 08/01/22 07:19 dermatitis Milk solids Allergy Intermediate Vomiting Uncoded 07/22/22 10:12 RACHEL Allergy Mild rash Uncoded 07/22/22 10:12 needing early removal Pollen Allergy Unknown runny nose Uncoded 07/22/22 10:12 Soy Allergy Allergy Unknown Uncoded 07/22/22 10:12 Sulfamethoxazole / Allergy Unknown nausea, GI Uncoded 07/22/22 10:12 trimethoprim upset dermbond AdvReac Unknown contact Uncoded 07/22/22 10:12 dermatitis <Camrelo Villanueva MD - Last Filed: 08/01/22 19:50> Review of Systems Status of ROS: Reports: 10 or more systems reviewed and unremarkable except as noted in History and below <Carmelo Villanueva MD - Last Filed: 08/01/22 19:50> [facility] Medical History: Medical History (Updated 08/01/22 @ 11:48 by Merari Meza MD) Allergic rhinitis Ataxia due to cerebrovascular disease Bipolar II disorder Cerebral arteriosclerosis with history of previous cerebrovascular accident Chronic back pain Chronic neck pain Chronic obstructive pulmonary disease Continuous opioid dependence (08/27/16) Cyclothymic disorder Fibromyalgia Herpes labialis History of cerebrovascular accident Migraine Neuropathy associated with polyneuropathy, organomegaly, endocrinopathy, monoclonal gammopathy, and skin changes syndrome Nicotine dependence Posttraumatic stress disorder Pyogenic arthritis of left shoulder region (03/25/21) Restless legs syndrome 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) <Carmelo Villanueva MD - Last Filed: 08/01/22 19:50> Surgical History: Surgical History History of abdominoplasty History of arthroplasty of both knees History of bilateral cataract extraction History of carpal tunnel release of both wrists (2016) History of cholecystectomy History of foot surgery History of gastric bypass (1999) History of left shoulder replacement History of mastopexy History of neck surgery History of nevus excision History of sinus surgery History of spinal surgery History of total hysterectomy with bilateral salpingo-oophorectomy (BSO) History of tubal ligation Status post insertion of spinal cord stimulator <Carmelo Villanueva MD - Last Filed: 08/01/22 19:50> Family History: Family History (Updated 06/04/22 @ 10:08 by Michael Bojorquez) Family/Other Breast cancer Lung cancer Father Cancer Coronary artery disease Sister Congenital heart defect Mother Pancreatic cancer, Onset Age: 60 <Carmelo Villanueva MD - Last Filed: 08/01/22 19:50> Social History: Social History (Updated 07/22/22 @ 22:39 by Clemente Blackwell MD) Narrative: medical marijuana use chronic narcotic use tobacco use Smoking Status: Current every day smoker What tobacco products do you use: cigarettes Do you use any of these nicotine containing products: None Second hand tobacco smoke exposure: No How often do you have a drink containing alcohol: never How often do you have six or more drinks on one occasion: Never AUDIT-C Alcohol total score: 0 Non-prescribed substance use: marijuana (any form) service: No <Carmelo Villanueva MD - Last Filed: 08/01/22 19:50> Exam Narrative: Exam Narrative: General: Well-developed and well-nourished, no acute distress Head: Small hematoma right occipital area Eyes: Pupils are equal reactive, extraocular motions intact, conjunctiva clear ENT: External nose and ears are normal, posterior pharynx without erythema or exudate Neck: No midline cervical tenderness, full spontaneous range of motion the neck, trachea midline, no adenopathy Heart: Regular rate and rhythm no murmurs or thrills Lungs: Clear to auscultation bilaterally without wheezes or crackles Abdomen: Soft, nontender, nondistended with active bowel sounds Musculoskeletal: No tenderness, deformity, or edema Neurologic: Awake, alert, and oriented x3. Slurred speech. Slight left facial droop. No drift but bilateral coarse tremor of the upper extremities. Sensation of the upper and lower extremities intact. Psych: Mood and affect are appropriate Skin: No rashes, numerous tattoos. Bruises of various ages on the knees bilaterally. <Carmelo Villanueva MD - Last Filed: 08/01/22 19:50> Const: Vital Signs, click to edit/add: Vital Signs - 24 hr 08/01/22 07:02 08/01/22 07:00 08/01/22 07:20 Temperature 98.0 F Pulse Rate Pulse Rate [Apical ] 89 88 Respiratory Rate 18 Blood Pressure Blood Pressure [Ri ght Upper Arm] 120/77 120/77 119/78 Pulse Oximetry 95 96 [facility] 08/01/22 07:30 08/01/22 07:40 08/01/22 08:00 Temperature Pulse Rate Pulse Rate [Apical ] 82 76 77 Respiratory Rate 12 18 Blood Pressure Blood Pressure [Ri ght Upper Arm] 125/81 119/84 121/82 Pulse Oximetry 92 93 97 [facility] Room Air 08/01/22 07:22 08/01/22 07:24 08/01/22 07:32 Temperature Pulse Rate 84 83 82 Pulse Rate [Apical ] Respiratory Rate Blood Pressure 119/78 125/81 Blood Pressure [Ri ght Upper Arm] Pulse Oximetry 90 90 93 [facility] 08/01/22 07:33 08/01/22 07:42 08/01/22 08:00 Temperature Pulse Rate 79 80 80 Pulse Rate [Apical ] Respiratory Rate Blood Pressure 119/84 Blood Pressure [Ri ght Upper Arm] Pulse Oximetry 99 91 97 [facility] 08[facility]01/22 08:02 08/01/22 08:30 08/01/22 08:32 Temperature Pulse Rate 81 77 75 Pulse Rate [Apical ] Respiratory Rate Blood Pressure 121/82 115/80 Blood Pressure [Ri ght Upper Arm] Pulse Oximetry 95 97 96 [facility] 08[facility]01/22 09:02 08/01/22 09:04 08/01/22 09:30 Temperature Pulse Rate 73 72 67 Pulse Rate [Apical ] Respiratory Rate Blood Pressure 104/70 Blood Pressure [Ri ght Upper Arm] Pulse Oximetry 89 91 95 [facility] 08/[facility]/22 09:32 08/01/22 10:05 08/01/22 10:30 Temperature Pulse Rate 71 72 74 Pulse Rate [Apical ] Respiratory Rate Blood Pressure 108/75 Blood Pressure [Ri ght Upper Arm] Pulse Oximetry 95 99 98 Oxygen Delivery Me thod 08/01/22 10:33 08/01/22 11:02 08/01/22 11:32 Temperature Pulse Rate 68 Pulse Rate [Apical ] Respiratory Rate Blood Pressure 113/84 133/81 129/85 Blood Pressure [Ri ght Upper Arm] Pulse Oximetry 98 Oxygen Delivery Me thod <Carmelo Villanueva MD - Last Filed: 08/01/22 19:50> Vital Signs, click to edit/add: Vital Signs - 24 hr 08/01/22 07:02 08/01/22 07:00 08/01/22 07:20 Temperature 98.0 F Pulse Rate Pulse Rate [Apical ] 89 88 Respiratory Rate 18 Blood Pressure Blood Pressure [Ri ght Upper Arm] 120/77 120/77 119/78 Pulse Oximetry 95 96 93 Oxygen Delivery Me thod Room Air Room Air Room Air 08/01/22 07:30 08/01/22 07:40 08/01/22 08:00 Temperature Pulse Rate Pulse Rate [Apical ] 82 76 77 Respiratory Rate 12 18 Blood Pressure Blood Pressure [Ri ght Upper Arm] 125/81 119/84 121/82 Pulse Oximetry 92 93 97 Oxygen Delivery Me thod Room Air Room Air Room Air 08/01/22 07:22 08/01/22 07:24 08/01/22 07:32 Temperature Pulse Rate 84 83 82 Pulse Rate [Apical ] Respiratory Rate Blood Pressure 119/78 125/81 Blood Pressure [Ri ght Upper Arm] Pulse Oximetry 90 90 93 Oxygen Delivery Me thod 08/01/22 07:33 08/01/22 07:42 08/01/22 08:00 Temperature Pulse Rate 79 80 80 Pulse Rate [Apical ] Respiratory Rate Blood Pressure 119/84 Blood Pressure [Ri ght Upper Arm] Pulse Oximetry 99 91 97 Oxygen Delivery Me thod 08/01/22 08:02 08/01/22 08:30 08/01/22 08:32 Temperature Pulse Rate 81 77 75 Pulse Rate [Apical ] Respiratory Rate Blood Pressure 121/82 115/80 Blood Pressure [Ri ght Upper Arm] Pulse Oximetry 95 97 96 Oxygen Delivery Me thod 08/01/22 09:02 08/01/22 09:04 08/01/22 09:30 Temperature Pulse Rate 73 72 67 Pulse Rate [Apical ] Respiratory Rate Blood Pressure 104/70 Blood Pressure [Ri ght Upper Arm] Pulse Oximetry 89 91 95 Oxygen Delivery Me thod 08/01/22 09:32 08/01/22 10:05 08/01/22 10:30 Temperature Pulse Rate 71 72 74 Pulse Rate [Apical ] Respiratory Rate Blood Pressure 108/75 Blood Pressure [Ri ght Upper Arm] Pulse Oximetry 95 99 98 Oxygen Delivery Me thod 08/01/22 10:33 08/01/22 11:02 08/01/22 11:32 Temperature Pulse Rate 68 Pulse Rate [Apical ] Respiratory Rate Blood Pressure 113/84 133/81 129/85 Blood Pressure [Ri ght Upper Arm] Pulse Oximetry 98 Oxygen Delivery Me thod <Merari Meza MD - Last Filed: 08/01/22 11:48> Course Course Hospital Course: Patient seen and examined immediately on arrival, prior records reviewed. Differential diagnosis includes but not limited to medication reaction, electrolyte disturbance, acute CVA, infection, intoxication. Patient with this morning and questionable worsening dizziness. History of acute CVA time of onset unknown, patient was having some dizziness yesterday but she chronically dizzy stroke scale, she is not a candidate for lytics, she may be an intervention if large vessel occlusion is found on CT. <Carmelo Villanueva MD - Last Filed: 08/01/22 19:50> Reevaluation(s) Reevaluation #1: Patient reexamined in emergency department. No focal weakness. Patient has difficulty straight leg raising each leg off the bed independently initially but then is able to keep them up when assisted the lift, in then is able to lift them off the bed. She continues to have occasional full body myoclonic movements but no hyper reflexia. CT results are pending. Slurred speech and lower extremity weakness, seems similar to patient's prior presentation a couple months ago. <Carmelo Villanueva MD - Last Filed: 08/01/22 19:50> Time: 07:13 <Carmelo Villanueva MD - Last Filed: 08/01/22 19:50> Reevaluation #2: BMP, CBC are reassuring. She does have leukopenia and mild anemia. Urine drug screen, alcohol level are pending. Liver function tests are reassuring. CTA and CT findings, no large vessel occlusions, no acute hemorrhage or acute CVA. Plan to sign out to oncoming provider at change of shift <Carmelo Villanueva MD - Last Filed: 08/01/22 19:50> Time: 07:38 <Carmelo Villanueva MD - Last Filed: 08/01/22 19:50> Reevaluation #3: Went to evaluate the patient and she is sleeping comfortably. She is easily arousable. Ask her how she is feeling and she states that she just feels lightheaded. She denies any vertiginous symptoms. We are able to ambulate her around the room without significant difficulty, she states that she does use a walker at home. She states that she has a terrible headache therefore we treat her with IV fluids, Zofran, Benadryl and Toradol which helps her quite a bit. Patient also requests her Percocet, stating that she has not taken any of her home medications. Therefore 5 mg Percocet was given to the patient. Once she was feeling better patient requested discharge. <Merari Meza MD - Last Filed: 08/01/22 11:48> Vital Signs Vital signs: Initial Vital Signs Pulse Rate 88 08/01/22 07:00 Pulse Rhythm 08/01/22 07:00 Respiratory Depth Normal 08/01/22 07:00 Blood Pressure 120/77 08/01/22 07:00 Blood Pressure Mean 91 08/01/22 07:00 Pulse Oximetry 96 08/01/22 07:00 Oxygen Delivery Method 08/01/22 07:00 Vital Signs Pulse Rate 88 08/01/22 07:00 Blood Pressure 120/77 08/01/22 07:00 Pulse Oximetry 96 08/01/22 07:00 Oxygen Delivery Method 08/01/22 07:00 Temperature 98.0 F 08/01/22 07:02 Pulse Rate 68 08/01/22 10:33 Respiratory Rate 18 08/01/22 07:40 Blood Pressure 129/85 08/01/22 11:32 Pulse Oximetry 98 08/01/22 10:33 Oxygen Delivery Method 08/01/22 08:00 <Carmelo Villanueva MD - Last Filed: 08/01/22 19:50> Initial Vital Signs Pulse Rate 88 08/01/22 07:00 Pulse Rhythm 08/01/22 07:00 Respiratory Depth Normal 08/01/22 07:00 Blood Pressure 120/77 08/01/22 07:00 Blood Pressure Mean 91 08/01/22 07:00 Pulse Oximetry 96 08/01/22 07:00 Oxygen Delivery Method 08/01/22 07:00 Vital Signs Pulse Rate 88 08/01/22 07:00 Blood Pressure 120/77 08/01/22 07:00 Pulse Oximetry 96 08/01/22 07:00 Oxygen Delivery Method 08/01/22 07:00 Temperature 98.0 F 08/01/22 07:02 Pulse Rate 68 08/01/22 10:33 Respiratory Rate 18 08/01/22 07:40 Blood Pressure 129/85 08/01/22 11:32 Pulse Oximetry 98 08/01/22 10:33 Oxygen Delivery Method 08/01/22 08:00 <Merari Meza MD - Last Filed: 08/01/22 11:48> Medical Decision Making MDM Narrative Medical decision making narrative: 57-year-old female with weakness, migraine headache. The patient feeling better after treatment for her migraine. Weakness seems to have resolved. There is no evidence of CVA workup today. Her labs were fairly unremarkable. Patient will be discharged home with recommended follow-up with primary care. She felt comfortable with this plan had no other questions. <Merari Meza MD - Last Filed: 08/01/22 11:48> Medical Records Medical records reviewed: Yes I reviewed the patient's medical records <Carmelo Villanueva MD - Last Filed: 08/01/22 19:50> Lab Data Lab results reviewed: Yes I reviewed the patient's lab results <Carmelo Villanueva MD - Last Filed: 08/01/22 19:50> Yes I reviewed the patient's lab results <Merari Meza MD - Last Filed: 08/01/22 11:48> Labs: Lab Results 08/01/22 08/01/22 08/01/22 Range/Units 06:43 06:43 06:43 WBC 3.95 L (4.50-11.00) K/uL RBC 3.90 L (4.00-5.20) m/uL Hgb 11.1 L (12.0-16.0) gm/dL Hct 34.4 (33.0-51.0) % MCV 88 (80-100) fL MCH 29 (26-34) pg MCHC 32 (32-36) gm/dL RDW Coeff of Joe 24.4 H (11.5-15.5) % Plt Count 241 (140-440) K/uL Neut % (Auto) 52.9 (42.0-72.0) % Lymph % (Auto) 32.2 (20-44) % Summers % (Auto) 10.1 (0.0-11.0) % Eos % (Auto) 4.3 (0.0-7.0) % Baso % (Auto) 0.5 (0.0-3.0) % Neut # (Auto) 2.10 (1.7-7.0) K/uL Lymph # (Auto) 1.30 (0.90-2.90) K/uL Summers # (Auto) 0.40 (0.00-0.90) K/UL Eos # (Auto) 0.20 (0.00-0.50) K/uL Baso # (Auto) 0.00 (0.00-0.30) K/uL Abs Immat Gran (auto) 0.00 (0.00-0.30) K/uL Sodium 139 (135-149) mmol/L Potassium 4.0 (3.6-5.1) mmol/L Chloride 106 (96-114) mmol/L Carbon Dioxide 26 (20-32) mmol/L BUN 18 (7-30) mg/dL Creatinine 0.6 (0.5-1.5) mg/dL Estimated Creat Clear 97.59 Estimated GFR 103 ml/min Glucose 110 (60-115) mg/dL Calcium 8.6 (8.4-10.6) mg/dL Total Bilirubin 0.1 (0.1-1.5) mg/dL Direct Bilirubin 0.1 (0.0-0.5) mg/dL AST 22 (12-35) U/L ALT 19 (4-35) U/L Alkaline Phosphatase 88 (40-150) U/L Total Protein 6.5 (6.0-8.3) g/dL Albumin 3.7 (3.3-5.0) g/dL Urine Color (Yellow) Urine Appearance (Clear) Urine pH (5.0-8.5) Ur Specific [place] (1.000-1.030) Urine Protein (Negative) Urine Glucose (UA) (Negative) Urine Ketones (Negative) Urine Blood (Negative) Urine Nitrite (Negative) Urine Bilirubin (Negative) Urine Urobilinogen (0.2-1.0) Ur Leukocyte Esterase (Negative) Urine RBC (0-2) Urine WBC (0-5) Ur Squamous Epith Cells (None-Few) Urine Bacteria (None) Urine Opiates Screen Negative (Negative) Ur Buprenorphine Scrn Negative (Negative) Ur Oxycodone Screen Negative (Negative) Urine Methadone Screen Negative (Negative) Ur Propoxyphene Screen Negative (Negative) Ur Barbiturates Screen Negative (Negative) U Tricyclic Antidepress Negative (Negative) Ur Phencyclidine Scrn Negative (Negative) Ur Amphetamines Screen Negative (Negative) U Methamphetamines Scrn Negative (Negative) U Benzodiazepines Scrn POSITIVE A* (Negative) Urine Cocaine Screen Negative (Negative) U Marijuana (THC) Screen POSITIVE A* (Negative) Ur Drug Screen Comment See Note Ethyl Alcohol < 0.01 L (0.01-0.03) % 08/01/22 08/01/22 Range/Units 06:43 08:05 WBC (4.50-11.00) K/uL RBC (4.00-5.20) m/uL Hgb (12.0-16.0) gm/dL Hct (33.0-51.0) % MCV (80-100) fL MCH (26-34) pg MCHC (32-36) gm/dL RDW Coeff of Joe (11.5-15.5) % Plt Count (140-440) K/uL Neut % (Auto) (42.0-72.0) % Lymph % (Auto) (20-44) % Summers % (Auto) (0.0-11.0) % Eos % (Auto) (0.0-7.0) % Baso % (Auto) (0.0-3.0) % Neut # (Auto) (1.7-7.0) K/uL Lymph # (Auto) (0.90-2.90) K/uL Summers # (Auto) (0.00-0.90) K/UL Eos # (Auto) (0.00-0.50) K/uL Baso # (Auto) (0.00-0.30) K/uL Abs Immat Gran (auto) (0.00-0.30) K/uL Sodium (135-149) mmol/L Potassium (3.6-5.1) mmol/L Chloride (96-114) mmol/L Carbon Dioxide (20-32) mmol/L BUN (7-30) mg/dL Creatinine (0.5-1.5) mg/dL Estimated Creat Clear Estimated GFR ml/min Glucose (60-115) mg/dL Calcium (8.4-10.6) mg/dL Total Bilirubin Cancelled (0.1-1.5) mg/dL Direct Bilirubin Cancelled (0.0-0.5) mg/dL AST Cancelled (12-35) U/L ALT Cancelled (4-35) U/L Alkaline Phosphatase Cancelled (40-150) U/L Total Protein Cancelled (6.0-8.3) g/dL Albumin Cancelled (3.3-5.0) g/dL Urine Color Yellow (Yellow) Urine Appearance Clear (Clear) Urine pH 5.5 (5.0-8.5) Ur Specific [place] <= 1.005 (1.000-1.030) Urine Protein Negative (Negative) Urine Glucose (UA) Negative (Negative) Urine Ketones Negative (Negative) Urine Blood Negative (Negative) Urine Nitrite Negative (Negative) Urine Bilirubin Negative (Negative) Urine Urobilinogen 0.2 (0.2-1.0) Ur Leukocyte Esterase Negative (Negative) Urine RBC 2-5 A (0-2) Urine WBC 0-2 (0-5) Ur Squamous Epith Cells Few (None-Few) Urine Bacteria None (None) Urine Opiates Screen (Negative) Ur Buprenorphine Scrn (Negative) Ur Oxycodone Screen (Negative) Urine Methadone Screen (Negative) Ur Propoxyphene Screen (Negative) Ur Barbiturates Screen (Negative) U Tricyclic Antidepress (Negative) Ur Phencyclidine Scrn (Negative) Ur Amphetamines Screen (Negative) U Methamphetamines Scrn (Negative) U Benzodiazepines Scrn (Negative) Urine Cocaine Screen (Negative) U Marijuana (THC) Screen (Negative) Ur Drug Screen Comment Ethyl Alcohol (0.01-0.03) % <Carmelo Villanueva MD - Last Filed: 08/01/22 19:50> Lab Results 08/01/22 08/01/22 08/01/22 Range/Units 06:43 06:43 06:43 WBC 3.95 L (4.50-11.00) K/uL RBC 3.90 L (4.00-5.20) m/uL Hgb 11.1 L (12.0-16.0) gm/dL Hct 34.4 (33.0-51.0) % MCV 88 (80-100) fL MCH 29 (26-34) pg MCHC 32 (32-36) gm/dL RDW Coeff of Joe 24.4 H (11.5-15.5) % Plt Count 241 (140-440) K/uL Neut % (Auto) 52.9 (42.0-72.0) % Lymph % (Auto) 32.2 (20-44) % Summers % (Auto) 10.1 (0.0-11.0) % Eos % (Auto) 4.3 (0.0-7.0) % Baso % (Auto) 0.5 (0.0-3.0) % Neut # (Auto) 2.10 (1.7-7.0) K/uL Lymph # (Auto) 1.30 (0.90-2.90) K/uL Summers # (Auto) 0.40 (0.00-0.90) K/UL Eos # (Auto) 0.20 (0.00-0.50) K/uL Baso # (Auto) 0.00 (0.00-0.30) K/uL Abs Immat Gran (auto) 0.00 (0.00-0.30) K/uL Sodium 139 (135-149) mmol/L Potassium 4.0 (3.6-5.1) mmol/L Chloride 106 (96-114) mmol/L Carbon Dioxide 26 (20-32) mmol/L BUN 18 (7-30) mg/dL Creatinine 0.6 (0.5-1.5) mg/dL Estimated Creat Clear 97.59 Estimated GFR 103 ml/min Glucose 110 (60-115) mg/dL Calcium 8.6 (8.4-10.6) mg/dL Total Bilirubin 0.1 (0.1-1.5) mg/dL Direct Bilirubin 0.1 (0.0-0.5) mg/dL AST 22 (12-35) U/L ALT 19 (4-35) U/L Alkaline Phosphatase 88 (40-150) U/L Total Protein 6.5 (6.0-8.3) g/dL Albumin 3.7 (3.3-5.0) g/dL Urine Color (Yellow) Urine Appearance (Clear) Urine pH (5.0-8.5) Ur Specific [place] (1.000-1.030) Urine Protein (Negative) Urine Glucose (UA) (Negative) Urine Ketones (Negative) Urine Blood (Negative) Urine Nitrite (Negative) Urine Bilirubin (Negative) Urine Urobilinogen (0.2-1.0) Ur Leukocyte Esterase (Negative) Urine RBC (0-2) Urine WBC (0-5) Ur Squamous Epith Cells (None-Few) Urine Bacteria (None) Urine Opiates Screen Negative (Negative) Ur Buprenorphine Scrn Negative (Negative) Ur Oxycodone Screen Negative (Negative) Urine Methadone Screen Negative (Negative) Ur Propoxyphene Screen Negative (Negative) Ur Barbiturates Screen Negative (Negative) U Tricyclic Antidepress Negative (Negative) Ur Phencyclidine Scrn Negative (Negative) Ur Amphetamines Screen Negative (Negative) U Methamphetamines Scrn Negative (Negative) U Benzodiazepines Scrn POSITIVE A* (Negative) Urine Cocaine Screen Negative (Negative) U Marijuana (THC) Screen POSITIVE A* (Negative) Ur Drug Screen Comment See Note Ethyl Alcohol < 0.01 L (0.01-0.03) % 08/01/22 08/01/22 Range/Units 06:43 08:05 WBC (4.50-11.00) K/uL RBC (4.00-5.20) m/uL Hgb (12.0-16.0) gm/dL Hct (33.0-51.0) % MCV (80-100) fL MCH (26-34) pg MCHC (32-36) gm/dL RDW Coeff of Joe (11.5-15.5) % Plt Count (140-440) K/uL Neut % (Auto) (42.0-72.0) % Lymph % (Auto) (20-44) % Summers % (Auto) (0.0-11.0) % Eos % (Auto) (0.0-7.0) % Baso % (Auto) (0.0-3.0) % Neut # (Auto) (1.7-7.0) K/uL Lymph # (Auto) (0.90-2.90) K/uL Summers # (Auto) (0.00-0.90) K/UL Eos # (Auto) (0.00-0.50) K/uL Baso # (Auto) (0.00-0.30) K/uL Abs Immat Gran (auto) (0.00-0.30) K/uL Sodium (135-149) mmol/L Potassium (3.6-5.1) mmol/L Chloride (96-114) mmol/L Carbon Dioxide (20-32) mmol/L BUN (7-30) mg/dL Creatinine (0.5-1.5) mg/dL Estimated Creat Clear Estimated GFR ml/min Glucose (60-115) mg/dL Calcium (8.4-10.6) mg/dL Total Bilirubin Cancelled (0.1-1.5) mg/dL Direct Bilirubin Cancelled (0.0-0.5) mg/dL AST Cancelled (12-35) U/L ALT Cancelled (4-35) U/L Alkaline Phosphatase Cancelled (40-150) U/L Total Protein Cancelled (6.0-8.3) g/dL Albumin Cancelled (3.3-5.0) g/dL Urine Color Yellow (Yellow) Urine Appearance Clear (Clear) Urine pH 5.5 (5.0-8.5) Ur Specific [place] <= 1.005 (1.000-1.030) Urine Protein Negative (Negative) Urine Glucose (UA) Negative (Negative) Urine Ketones Negative (Negative) Urine Blood Negative (Negative) Urine Nitrite Negative (Negative) Urine Bilirubin Negative (Negative) Urine Urobilinogen 0.2 (0.2-1.0) Ur Leukocyte Esterase Negative (Negative) Urine RBC 2-5 A (0-2) Urine WBC 0-2 (0-5) Ur Squamous Epith Cells Few (None-Few) Urine Bacteria None (None) Urine Opiates Screen (Negative) Ur Buprenorphine Scrn (Negative) Ur Oxycodone Screen (Negative) Urine Methadone Screen (Negative) Ur Propoxyphene Screen (Negative) Ur Barbiturates Screen (Negative) U Tricyclic Antidepress (Negative) Ur Phencyclidine Scrn (Negative) Ur Amphetamines Screen (Negative) U Methamphetamines Scrn (Negative) U Benzodiazepines Scrn (Negative) Urine Cocaine Screen (Negative) U Marijuana (THC) Screen (Negative) Ur Drug Screen Comment Ethyl Alcohol (0.01-0.03) % <Merari Meza MD - Last Filed: 08/01/22 11:48> Imaging Data CT scan - head: Attestation: I have reviewed the pertinent imaging results. <Merari Meza MD - Last Filed: 08/01/22 11:48> Radiologist's impression: FINDINGS: No abnormal intracranial mass effect or midline shift, or evidence of acute intracranial hemorrhage. No areas of abnormal attenuation are seen within the brain. CSF spaces are age-appropriate. No acute osseous abnormality. Mild mucosal thickening is seen in the left ethmoid and right sphenoid sinuses. Mastoids are clear IMPRESSION: No CT evidence of an acute intracranial abnormality. <Merari Meza MD - Last Filed: 08/01/22 11:48> Head neck CTA: Radiologist's impression: Preliminary Report: FINDINGS: CTA head: No proximal large vessel occlusion or flow-limiting stenosis. CTA neck: Post treatment changes of right vertebral artery sacrifice. Left vertebral artery is poorly visualized proximally due to beam hardening artifact, but is patent throughout its V2/V3 course. No flow-limiting stenosis involving the major cervical arteries elsewhere. <Merari Meza MD - Last Filed: 08/01/22 11:48> ECG Data Attestation: I personally reviewed and interpreted this ECG as follows: <Carmelo Villanueva MD - Last Filed: 08/01/22 19:50> I personally reviewed and interpreted this ECG as follows: (Normal sinus rhythm, pulse 87) <Merari Meza MD - Last Filed: 08/01/22 11:48> Prior ECG tracings: not available for review <Carmelo Villanueva MD - Last Filed: 08/01/22 19:50> Interpretation: Performed at 7:03 a.m. demonstrates sinus rate 87, no acute ischemic changes, normal intervals, normal axis, QTC 466. <Carmelo Villanueva MD - Last Filed: 08/01/22 19:50> Discharge Plan Discharge Clinical Impression: Migraine, Weakness <Carmelo Villanueva MD - Last Filed: 08/01/22 19:50> Patient Disposition: Home, Self-Care <Carmelo Villanueva MD - Last Filed: 08/01/22 19:50> Condition: Improved <Carmelo Villanueva MD - Last Filed: 08/01/22 19:50> Additional Instructions: Recommend he follow-up with primary care provider this coming week. <Carmelo Villanueva MD - Last Filed: 08/01/22 19:50> Prescriptions: No Action esomeprazole magnesium 40 mg capsule,delayed release(DR/EC) 40 mg PO DAILY ropinirole 2 mg tablet 2 mg PO .Bedtime magnesium gluconate 27.5 mg magne- sium (500 mg) tablet 27.5 mg PO DAILY cholecalciferol (vitamin D3) 125 mcg (5,000 unit) tablet 5,000 unit PO DAILY cyanocobalamin (vitamin B-12) 2,500 mcg tablet 5,000 mcg PO DAILY oxycodone 5 mg tablet 5 mg PO QID diclofenac sodium 1 % gel 2 g topical lamotrigine 200 mg tablet 200 mg PO BID Qty: 60 12RF acetaminophen 650 mg tablet extended release 1,300 mg PO .Every 8 Hours Qty: 180 12RF valacyclovir 500 mg tablet 500 mg PO DAILY Qty: 90 3RF aspirin 81 mg tablet,delayed release (DR/EC) 81 mg PO QDAY Qty: 90 3RF bupropion HCl 300 mg tablet extended release 24 hr 300 mg PO QDAY Qty: 90 3RF cetirizine [Zyrtec] 10 mg tablet 10 mg PO QDAY Qty: 90 3RF pregabalin 150 mg capsule 150 mg PO BID Qty: 120 2RF Rx Instructions: Total dose 450 mg BID pregabalin 300 mg capsule 300 mg PO BID Qty: 120 2RF Rx Instructions: Total dose 450 mg BID albuterol sulfate [Ventolin HFA] 90 mcg/actuation HFA aerosol inhaler 2 puff inhalation Q6H PRN (Reason: shortness of breath or wheezing) Qty: 8.5 2RF quetiapine 50 mg tablet 50 mg PO .Bedtime Qty: 30 5RF rizatriptan 10 mg tablet 10 mg PO ONCE PRN (Reason: migraine headache) Qty: 10 5RF Rx Instructions: TAKE ONE TAB AT ONSET OF HEADACHE, MAY REPEAT Q2H PRN, MAX 30 MG/24 HRS sumatriptan 5 mg/actuation spray,non-aerosol 5 mg intranasal ONCE PRN (Reason: migraine headache) Qty: 6 5RF Rx Instructions: 1-2 SPRAYS IN ONE NOSTRIL AT ONSET OF HEADACHE, MAY REPEAT Q2H PRN, MAX 4 SPRAYS/24 HRS tizanidine 4 mg tablet 4 mg PO Q8H PRN (Reason: muscle spasticity) Qty: 30 0RF <Carmelo Villanueva MD - Last Filed: 08/01/22 19:50> Follow Up/Referrals: Clemente Blackwell MD [Primary Care Provider] - <Carmelo Villanueva MD - Last Filed: 08/01/22 19:50> Stand Alone Forms: [facility] <Carmelo Villanueva MD - Last Filed: 08/01/22 19:50>
--- OUTSIDE RECORDS SUMMARY | 2022-08-01 06:45 | XMS_ITS | Encounter Summary ---
:1965 Author Organization [facility] Address [address] [place] [address] Care Team Providers Name Role Phone Unavailable Primary Care Provider Unavailable Reason for Visit Reason Comments Nicotine Dependence Encounter Details Date Type Department Care Team Description 07/24/2021 Clinical Communication Department of [facility], Carolyn Mccarthy cotine Dependence Nicotine M.S., Dependence, C.T.T.S., [facility], L.P.C.C. in [address] [place] [address] [place], [place] [phone] (Work) [phone] Social History Tobacco Use Types Packs/Day Years [...] you attend sabianism or Patient refused 2021 judaism services? Do [...]
--- OUTSIDE RECORDS SUMMARY | 2022-08-01 06:45 | XMS_ITS | Encounter Summary ---
:1965 Author Organization [facility] Address [address] [place] [address] Care Team Providers Name Role Phone Unavailable Primary Care Provider Unavailable Reason for Referral Outpatient (Routine) - Closed Specialty Diagnoses / Procedures Referred By Contact Refer red To Contact Diagnoses Pain Wrist Left Michael Noble Jr., [facility] Procedures PM Device interrogation (clinic) P.A.-C. [address] [place] [phone] Referral ID Status Reason Start Date Expiration Date Visits Requ ested Visits Authorized [id number] Closed 03/17/2021 03/17/2022 1 1 RI/CAT/PET Scan (Routine) - Closed Specialty Diagnoses / Procedures Referred By Contact Refer red To Contact Radiology Diagnoses Pain Wrist Left Michael Noble Jr., [facility] Procedures MR Wrist Left without IV Contrast P.A.-C. 200 [place], [place] [address] Referral ID Status Reason Start Date Expiration Date Visits Requ ested Visits Authorized [id number] Closed 03/17/2021 03/17/2022 1 1 Encounter Details Date Type Department Care Team Description 03/17/2021 Orders Only Department of Michael Noble Wris t Left Orthopedic Surgery in Tona Patel Jr. (Primary Dx) [place], [place] [address] [place] [phone] Social History Tobacco Use Types Packs/Day Years [...] you attend taoist or Patient refused 2021 confucianism services? Do [...]
--- OUTSIDE RECORDS SUMMARY | 2022-08-01 06:45 | XMS_ITS | Encounter Summary ---
:1965 Author Organization [facility] Address [address] [place] [address] Care Team Providers Name Role Phone Unavailable Primary Care Provider Unavailable Reason for Visit Reason Comments Pre-visit Intake Encounter Details Date Type Department Care Team Description 04/15/2021 Clinical Communication Department of Robert Diehl e-visit Intake Neurology in Lilian Celaya [place], [facility] [place], [place] [address] [place] [address] [place], [place] [phone] (Work) [phone] Social History Tobacco Use Types Packs/Day Years [...] you attend yarsanism or Patient refused 2021 holiness services? Do [...]
--- OUTSIDE RECORDS SUMMARY | 2022-08-01 06:45 | XMS_ITS | Encounter Summary ---
:1965 Author Organization [facility] Address [address] [place] [address] Care Team Providers Name Role Phone Unavailable Primary Care Provider Unavailable Reason for Referral Outpatient (Routine) - Closed Specialty Diagnoses / Procedures Referred By Contact Refer red To Contact Orthopedic Surgery Michael Noble [facility] , P.A.-C. [address] [place] [phone] Referral ID Status Reason Start Date Expiration Date Visits Requ ested Visits Authorized [id number] Closed 05/04/2021 05/04/2022 1 1 Scheduling Instructions Pulos Encounter Details Date Type Department Care Team Description 05/04/2021 Orders Only Department of Orthopedic Mirna Noble Surgery in [facility] , P.A.- C. [address] [place] [phone] (Wo rk) Social History Tobacco Use Types [...] you attend christian or Patient refused 2021 cheondoism services? Do you belong to any clubs or No 05/17/2022 organizations such as christian groups, unions, fraAmicrobe or athletic groups, or school groups? How [...]
--- OUTSIDE RECORDS SUMMARY | 2022-08-01 06:45 | XMS_ITS | Encounter Summary ---
:1965 Author Organization [facility] Address [address] [place] [address] Care Team Providers Name Role Phone Unavailable Primary Care Provider Unavailable Reason for Visit Outpatient (Routine) - Closed Specialty Diagnoses / Procedures Referred By Contact Refer red To Contact Neurological Surgery Jeannette Cote [place] M.D. [address] [place] [phone] Referral ID Status Reason Start Date Expiration Date Visits Requ ested Visits Authorized [id number] Closed 02/17/2021 02/17/2022 1 1 Encounter Details Date Type Department Care Team Description 03/12/2021 Office Visit Department of Gonzalez Benjamin Neurologic Surgery in Lilian Jang, Cinthya castorena ([facility]) (Primary [place], [place] Ph.D. Dx) [address] [place] [address] [place] [phone] Social History Tobacco Use Types Packs/Day [...] you attend christian or Patient refused 2021 mormonism services? Do you belong to any clubs or No 05/17/2022 organizations such as christian groups, unions, fraXebiaLabs or athletic groups, or school groups? How [...]
--- OUTSIDE RECORDS SUMMARY | 2022-08-01 06:45 | XMS_ITS | Encounter Summary ---
:1965 Author Organization [facility] Address [address] [place] [address] Care Team Providers Name Role Phone Unavailable Primary Care Provider Unavailable Encounter Details Date Type Department Care Team Description 05/04/2021 Clinical Communication Department of Dario Noel , Orthopedic Surgery in [place], [place] [address] [place] [address] 200 [place] [phone] Social History Tobacco Use Types Packs/Day Years [...] you attend hinduism or Patient refused 2021 adventist services? Do [...]
--- OUTSIDE RECORDS SUMMARY | 2022-08-01 06:45 | XMS_ITS | Encounter Summary ---
:1965 Author Organization [facility] Address [address] [place] [address] Care Team Providers Name Role Phone Unavailable Primary Care Provider Unavailable Encounter Details Date Type Department Care Team Description 03/11/2021 Clinical Communication Department of Ana Segura Orthopedic Surgery in [place], [place] [address] [place] [phone] Social History Tobacco Use Types Packs/Day Years [...] you attend anabaptism or Patient refused 2021 hoahaoism services? Do [...] Patient would like to be seen in [place]. Referral line to [place] provided to angela batista. Patient aware she will call for apptointment. Telephone Encounter - Jerica Gee L.P.N. - 03/13/2021 9:09 AM CDT Left message to call clinic back. Needs to see a hand surgeon. Telephone Encounter - Christal Abraham L.P.N. - 03/12/2021 3:21 PM CDT Left message for patient to call back. She can contact [place], [place], or sarath frye if she choses. Telephone Encounter - Clemente Schofield M.D. - 03/12/2021 11:23 AM CDT She should see a hand surgeon Telephone Encounter - Esperanza Stratton - 03/11/2021 9:33 AM CDT Reason for Communication: Patient is calling in stating that she is being referred to be seen for a brake in her LEFT hand. Patient is stating that [facility] in [facility] is requesting for patient to be seen by our orthopedic department. Patient is wanting to be seen in [place]. Unable to find any encounters regarding a [...]
--- OUTSIDE RECORDS SUMMARY | 2022-08-01 06:45 | XMS_ITS | Encounter Summary ---
:1965 Author Organization [facility] Address [address] [place] [address] Care Team Providers Name Role Phone Unavailable Primary Care Provider Unavailable Reason for Visit Reason Comments Pre-visit Intake Encounter Details Date Type Department Care Team Description 03/11/2021 Clinical Communication Department of Sourav Pre- visit Intake Neurologic Surgery Lilian Jang, in [place], Ph.D. [place] [address] [place] [address] [phone] Social History Tobacco Use Types Packs/Day Years [...] you attend holiness or Patient refused 2021 protestant services? Do [...]
--- OUTSIDE RECORDS SUMMARY | 2022-08-01 06:45 | XMS_ITS | Encounter Summary ---
:1965 Author Organization [facility] Address [address] [place] [address] Care Team Providers Name Role Phone Unavailable Primary Care Provider Unavailable Reason for Visit Reason Comments Nicotine Dependence Encounter Details Date Type Department Care Team Description 07/30/2021 Clinical Communication Department of [facility], Carolyn Mccarthy cotine Dependence Nicotine M.S., Dependence, C.T.T.S., [facility], L.P.C.C. in [address] [place] [phone] [place], [place] [phone] (Work) [phone] Social History Tobacco Use Types Packs/Day Years [...] you attend zoroastrianism or Patient refused 2021 catholic services? Do [...]
--- OUTSIDE RECORDS SUMMARY | 2022-08-01 06:45 | XMS_ITS | Encounter Summary ---
:1965 Author Organization [facility] Address [address] [place] [address] Care Team Providers Name Role Phone Unavailable Primary Care Provider Unavailable Reason for Visit Reason Comments Follow-up [facility] Patient Encounter Details Date Type Department Care Team Description 02/25/2021 Clinical Communication [facility] Neurology jimmy Celaya M.D. Patient) [place], [facility] [address] [place], [place] [address] [place] [phone] [place], [place] [phone] (Work) [phone] Social History Tobacco Use Types Packs/Day Years [...] you attend yarsanism or Patient refused 2021 latter-day services? Do [...] so I advised she report to the [place] [facility] as soon as possible to be [...]
--- OUTSIDE RECORDS SUMMARY | 2022-08-01 06:45 | XMS_ITS | Encounter Summary ---
:1965 Author Organization [facility] Address [address] [place] [address] Care Team Providers Name Role Phone Unavailable Primary Care Provider Unavailable Reason for Referral Outpatient (Routine) - Closed Specialty Diagnoses / Procedures Referred By Contact Refer red To Contact Diagnoses Dissociation Scapholunate Left Michael Downs M.D. [facility] Procedures ORS Cast Room Visit [address] [place] [phone] Referral ID Status Reason Start Date Expiration Date Visits Requ ested Visits Authorized [id number] Closed 05/08/2021 05/08/2022 1 1 Reason for Visit Reason Comments Follow-up Outpatient (Routine) - Closed Specialty Diagnoses / Procedures Referred By Contact Refer red To Contact Diagnoses Dissociation Scapholunate Left Michael Downs M.D. [facility] Procedures ORS Cast Room Visit [address] [place] [phone] Referral ID Status Reason Start Date Expiration Date Visits Requ ested Visits Authorized [id number] Closed 05/08/2021 05/08/2022 1 1 Encounter Details Date Type Department Care Team Description 05/08/2021 Hospital Encounter Department of Paul Downs M.D. [address] [place] [phone] Dissociation Orthopedic Surgery Dario Noel M.D. [address] [place] [phone] Scapkimiunate Left in [place], [place] [address] [place] [address] Social History Tobacco Use Types Packs/Day Years [...] attend latter day or Patient refused 2021 restorationism services? Do [...] mouth 0 06/17/2022 mg tablet at bedtime. nicotine (NICOTROL) 10 Inhale 1 puff as [...] short-arm cast was applied by the castroom heating and cooling technician - The patient is nonweightbearing bearing [...]
--- OUTSIDE RECORDS SUMMARY | 2022-08-01 06:45 | XMS_ITS | Encounter Summary ---
:1965 Author Organization [facility] Address [address] [place] [address] Care Team Providers Name Role Phone Unavailable Primary Care Provider Unavailable Reason for Visit Reason Comments Post Hospital Follow-up Encounter Details Date Type Department Care Team Description 02/19/2021 Clinical Communication Department of [facility], [facility] Neurology in Monica Alvarado R.N. Follow-up [place], [place] [address] [place] [address] Social History Tobacco Use Types [...] you attend lutheran or Patient refused 2021 advent services? Do [...] reports she has not yet picked up gao255 ASA daily and 80 mg Atorvastatin at [...]
--- OUTSIDE RECORDS SUMMARY | 2022-08-01 06:45 | XMS_ITS | Encounter Summary ---
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 [facility] Procedures CT Head Neck Angiogram with IV Contrast 200 [place], [place] [address] Referral ID Status Reason Start Date Expiration Date Visits Requ ested Visits Authorized [id number] Closed 02/17/2021 02/17/2022 1 1 Encounter Details Date Type Department Care Team Description 03/12/2021 Hospital Encounter Department of Jeannette Cote ebral Infarction Radiology, Severiano Souza M.D. Due To Embolism Building, in 200 [facility] Vertebral [place], [place] Artery (HCC) [place] [address] [phone] [place], [place] (Work) [phone] Social History Tobacco Use Types Packs/Day Years [...] attend jehovah's witness or Patient refused 2021 hoahaoism services? Do [...] N/A C omputed Tomography, Computed Neuroradiology ARZ [facility], Neuroradiology T omography [facility] [...] ane urysms. 3. 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 Otherwise [place] of [place] is intact. 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 Otherwise [place] of [place] is intact. Dolichoectasia of [...] ane urysms. 3. 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 Jeannette NIELSON [...]
--- OUTSIDE RECORDS SUMMARY | 2022-08-01 06:45 | XMS_ITS | Encounter Summary ---
:1965 Author Organization [facility] Address [address] [place] [address] Care Team Providers Name Role Phone Unavailable Primary Care Provider Unavailable Reason for Referral Outpatient (Routine) - Closed Specialty Diagnoses / Procedures Referred By Contact Refer red To Contact Diagnoses Dissociation Scapholunate Left Michael Downs M.D. [facility] Procedures ORS Cast Room Visit [address] [place] [phone] Referral ID Status Reason Start Date Expiration Date Visits Requ ested Visits Authorized [id number] Closed 05/08/2021 05/08/2022 1 1 Outpatient (Routine) - Closed Specialty Diagnoses / Procedures Referred By Contact Refer red To Contact Diagnoses Dissociation Scapholunate Left Michael Downs M.D. [facility] Procedures ORS Cast Room Visit [address] [place] [phone] Referral ID Status Reason Start Date Expiration Date Visits Requ ested Visits Authorized [id number] Closed 05/08/2021 05/08/2022 1 1 Reason for Visit Reason Onset Date Comments Left Without Being Seen 07/17/2021 Outpatient (Routine) - Closed Specialty Diagnoses / Procedures Referred By Contact Refer red To Contact Orthopedic Surgery [facility] [address] [place] [phone] Referral ID Status Reason Start Date Expiration Date Visits Requ ested Visits Authorized [id number] Closed 05/04/2021 05/04/2022 1 1 Encounter Details Date Type Department Care Team Description 05/08/2021 Office Visit Department of Pullazaro, Dario Alejo, Dissocia tion Scapholunate Left (Primary Dx); Orthopedic Surgery in M.D. Procedure And Treatment Not Carried Out Due To Patient Leaving Prior To Being Seen By Health Care Provider [place], [place] 200 [address] [facility] 200 [place] [address] [phone] Social History Tobacco Use Types Packs/Day Years [...] you attend anabaptist or Patient refused 2021 synagogue services? Do [...]
--- OUTSIDE RECORDS SUMMARY | 2022-08-01 06:45 | XMS_ITS | Encounter Summary ---
:1965 Author Organization [facility] Address [address] [place] [address] Care Team Providers Name Role Phone Unavailable Primary Care Provider Unavailable Reason for Visit Reason Comments Med Refill Encounter Details Date Type Department Care Team Description 06/04/2021 Refill Department of Orthopedic Pulos, Dario Alejo M.D. Med Refill Surgery in [address] [address] [place] [address] [place] [address] [phone] Social History Tobacco Use Types Packs/Day Years [...] you attend mormon or Patient refused 2021 rastafari services? Do [...]
--- OUTSIDE RECORDS SUMMARY | 2022-08-01 06:45 | XMS_ITS | Encounter Summary ---
:1965 Author Organization [facility] Address [address] [place] [address] Care Team Providers Name Role Phone Unavailable Primary Care Provider Unavailable Reason for Visit Reason Comments Pre-scheduling Questionnaire Hand Pre-Scheduling Qu estionnaire Encounter Details Date Type Department Care Team Description 03/16/2021 Clinical Department of Prescheduling, Pre-scheduli ng Communication Orthopedic Surgery Provider Question elizabeth ( in [place], Hand Pre-Sched uling [place] Questionnaire) [address] [place] [phone] Social History Tobacco Use Types Packs/Day Years [...] you attend moravian or Patient refused 2021 mosque services? Do [...]
--- OUTSIDE RECORDS SUMMARY | 2022-08-01 06:45 | XMS_ITS | Encounter Summary ---
:1965 Author Organization [facility] Address 200 [place] [address] Care Team Providers Name Role Phone Unavailable Primary Care Provider Unavailable Reason for Referral Outpatient (Routine) - Closed Specialty Diagnoses / Procedures Referred By Contact Refer red To Contact Neurological Surgery Jeannette Cote [facility] Lilian 200 [place] [address] Referral ID Status Reason Start Date Expiration Date Visits Requ ested Visits Authorized [id number] Closed 02/17/2021 02/17/2022 1 1 Scheduling Instructions Please schedule with Chief A Neurosurger y Service (Dr. Suhail Benjamin). 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 [facility] Procedures CT Head Neck Angiogram with IV Contrast 200 [place] [address] Referral ID Status Reason Start Date Expiration Date Visits Requ ested Visits Authorized [id number] Closed 02/17/2021 02/17/2022 1 1 Encounter Details Date Type Department Care Team Description 02/17/2021 Orders Only Department of Jeannette Cote Cerebral Infarction Neurologic Surgery jimmy Souza M.D. Due To Embolism Right [place], [place] 200 [address] [facility] Vertebral Artery (HCC) [address] [place], [place] (Primary Dx) [place] [address] [phone] Social History Tobacco Use Types Packs/Day Years [...] you attend yarsani or Patient refused 2021 hinduism services? Do [...] Neuroradiology AR[facility], Neuroradiology T omography FLA [facility] Specimen (Source) Anatomical Collection Method Collection [...] ane urysms. 3. 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 Otherwise [place] is intact. Dolichoectasia of [...] 2 mm left supraclinoid aneurysm (557). Otherwise [place] is intact. Dolichoectasia of [...] ane urysms. 3. 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 Jeannette NIELSON [...]
--- OUTSIDE RECORDS SUMMARY | 2022-08-01 06:45 | XMS_ITS | Encounter Summary ---
:1965 Author Organization [facility] Address [address] [place] [address] Care Team Providers Name Role Phone Unavailable Primary Care Provider Unavailable Reason for Visit Physical Therapy (Routine) - Closed Specialty Diagnoses / Procedures Referred By Contact Refer red To Contact Diagnoses Dissociation Scapholunate Left Dario Noel M.D. [facility] Procedures PT or OT eval and treat (first available) [address] [place] [phone] Referral ID Status Reason Start Date Expiration Date Visits Requ ested Visits Authorized [id number] Closed 06/08/2021 06/08/2022 99 99 Encounter Details Date Type Department Care Team Description 06/08/2021 Clinical Support Department of Physical German Noel M.D. [address] [place] [phone] Pain Wrist Left (Primary Dx); Medicine and Veena Quevedo M.S., C.H.T., O.T. [address] [place] [phone] Dissociation Scapholunate Left Rehabilitation in [place], [place] [address] [place] [phone] Social History Tobacco Use Types Packs/Day [...] you attend hinduism or Patient refused 2021 samaritan services? Do [...] (HCC) ??? Nicotine Dependence Unspecified ??? 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 Active Hand Exercises (Six Pack) [id number]. Active Wrist Exercises [id number] Assessment Clinical Impression: The patient tolerated the [...]
--- OUTSIDE RECORDS SUMMARY | 2022-08-01 06:45 | XMS_ITS | Encounter Summary ---
:1965 Author Organization [facility] Address [address] [place] [address] Care Team Providers Name Role Phone Unavailable Primary Care Provider Unavailable Reason for Visit Reason Comments Nicotine Dependence Encounter Details Date Type Department Care Team Description 03/10/2021 Clinical Communication Department of [facility], Carolyn Mccarthy cotine Dependence Nicotine M.S., Dependence, C.T.T.S., [facility], L.P.C.C. in [address] [place] [address] [place], [place] [phone] (Work) [phone] Social History Tobacco Use Types Packs/Day Years [...] you attend restoration or Patient refused 2021 hindu services? Do [...]
--- OUTSIDE RECORDS SUMMARY | 2022-08-01 06:45 | XMS_ITS | Encounter Summary ---
:1965 Author Organization [facility] Address [address] [place] [address] Care Team Providers Name Role Phone Unavailable Primary Care Provider Unavailable Reason for Referral MRI/CAT/PET Scan (Routine) - Closed Specialty Diagnoses / Procedures Referred By Contact Refer red To Contact Radiology Diagnoses Pain Wrist Left Michael Noble Jr., [facility] Procedures MR Wrist Left without IV Contrast P.A.-C. [address] [place] [phone] Referral ID Status Reason Start Date Expiration Date Visits Requ ested Visits Authorized [id number] Closed 03/17/2021 03/17/2022 1 1 Reason for Visit MRI/CAT/PET Scan (Routine) - Closed Specialty Diagnoses / Procedures Referred By Contact Refer red To Contact Radiology Diagnoses Pain Wrist Left Michael Noble Jr., [facility] Procedures MR Wrist Left without IV Contrast P.A.-C. [address] [place] [phone] Referral ID Status Reason Start Date Expiration Date Visits Requ ested Visits Authorized [id number] Closed 03/17/2021 03/17/2022 1 1 Encounter Details Date Type Department Care Team Description 03/24/2021 Hospital Encounter Department of Michael Noble Wrist Left Radiology, Hema Perez Jr.[facility]itton[facility], in [address] [place] [address] [place], [place] [phone] [place], [place] [phone] (Work) [phone] Social History Tobacco Use Types Packs/Day Years [...] you attend baptist or Patient refused 2021 scientologist services? Do [...]
--- OUTSIDE RECORDS SUMMARY | 2022-08-01 06:45 | XMS_ITS | Encounter Summary ---
:1965 Author Organization [facility] Address [address] [place] [address] Care Team Providers Name Role Phone Unavailable Primary Care Provider Unavailable Reason for Visit Reason Comments pain medication Encounter Details Date Type Department Care Team Description 06/04/2021 Clinical Communication Department of Pullazaro, Dario willard medication Orthopedic Surgery Lilian Alejo in [place], [facility] [place], [place] [address] [place] [phone] [place], [place] [phone] (Work) [phone] Social History Tobacco Use Types Packs/Day Years [...] you attend episcopalian or Patient refused 2021 anabaptist services? Do [...] meds/scripts. Patient would like a call - [phone] documented in this encounter Plan of Treatment Not on filedocumented as of this encounter Visit Diagnoses Not on filedocumented in this encounter Additional Health Concerns Assessment Noted Time PHQ-9 Depression Total Score: 16 02/11/2021 12:00 AM C DT documented as of this encounter
--- OUTSIDE RECORDS SUMMARY | 2022-08-01 06:45 | XMS_ITS | Encounter Summary ---
:1965 Author Organization [facility] Address [address] [place] [address] Care Team Providers Name Role Phone Unavailable Primary Care Provider Unavailable Reason for Referral Outpatient (Routine) - Closed Specialty Diagnoses / Procedures Referred By Contact Refer red To Contact Diagnoses Dissociation Scapholunate Left Michael Downs M.D. [facility] Procedures ORS Cast Room Visit [address] [place] [phone] Referral ID Status Reason Start Date Expiration Date Visits Requ ested Visits Authorized [id number] Closed 03/24/2021 03/24/2022 1 1 Reason for Visit Reason Comments Follow-up Outpatient (Routine) - Closed Specialty Diagnoses / Procedures Referred By Contact Refer red To Contact Diagnoses Dissociation Scapholunate Left Michael Downs M.D. [facility] Procedures ORS Cast Room Visit [address] [place] [phone] Referral ID Status Reason Start Date Expiration Date Visits Requ ested Visits Authorized [id number] Closed 03/24/2021 03/24/2022 1 1 Encounter Details Date Type Department Care Team Description 03/24/2021 Hospital Encounter Department of Paul Downs M.D. [address] [place] [phone] Dissociation Orthopedic Surgery Dario Noel M.D. [address] [place] [phone] Scapkimiunate Left in [place], [place] [address] [place] [address] Social History Tobacco Use Types Packs/Day Years [...] with 70/60 degrees on the contralateral side. Stitcher Tape Controlled Machine strength of 10 kg compared to 23 [...] short-arm cast was applied by the castroom medtronics technician - The patient is nonweightbearing bearing [...] 70/60 degrees on the contr alateral side. ??Stitcher Tape Controlled Machine strength of 10 kg compared to 23 [...] ??The clenched fist view was obtained of [employer] hands, but unfortunately is difficult to assess [...] cast was applied by the kevin garcia medtronics technician - The patient is nonweightbearing bearin [...]
--- OUTSIDE RECORDS SUMMARY | 2022-08-01 06:45 | XMS_ITS | Encounter Summary ---
:1965 Author Organization [facility] Address [address] [place] [address] Care Team Providers Name Role Phone Unavailable Primary Care Provider Unavailable Reason for Referral Outpatient (Routine) - Closed Specialty Diagnoses / Procedures Referred By Contact Refer red To Contact Orthopedic Surgery Dario Noel M .D. [facility] 200 [place] [address] Referral ID Status Reason Start Date Expiration Date Visits Requ ested Visits Authorized [id number] Closed 06/08/2021 06/08/2022 1 1 Physical Therapy (Routine) - Closed Specialty Diagnoses / Procedures Referred By Contact Refer red To Contact Diagnoses Dissociation Scapholunate Left Dario Noel M.D. [facility] Procedures PT or OT eval and treat (first available) [address] [place] [address] [phone] Referral ID Status Reason Start Date Expiration Date Visits Requ ested Visits Authorized [id number] Closed 06/08/2021 06/08/2022 99 99 Outpatient (Routine) - Closed Specialty Diagnoses / Procedures Referred By Contact Refer red To Contact Diagnoses Dissociation Scapholunate Left Michael Downs M.D. [facility] Procedures ORS Cast Room Visit [address] [place] [phone] Referral ID Status Reason Start Date Expiration Date Visits Requ ested Visits Authorized [id number] Closed 05/08/2021 05/08/2022 1 1 Reason for Visit Reason Comments Cast Check Follow-up Outpatient (Routine) - Closed Specialty Diagnoses / Procedures Referred By Contact Refer red To Contact Diagnoses Dissociation Scapholunate Left Michael Downs M.D. [facility] Procedures ORS Cast Room Visit [address] [place] [address] [phone] Referral ID Status Reason Start Date Expiration Date Visits Requ ested Visits Authorized [id number] Closed 05/08/2021 05/08/2022 1 1 Encounter Details Date Type Department Care Team Description 06/08/2021 Hospital Encounter Department of Paul Downs M.D. [address] [place] [phone] Dissociation Orthopedic Surgery Dario Noel M.D. [address] [place] [phone] Scapholunate Left in [place], [place] [address] [place] [phone] Social History Tobacco Use Types Packs/Day Years [...] you attend religion or Patient refused 2021 gnosticism services? Do [...] the food you bought just Often tr uheaven 05/17/2022 didn't last and you didn't have [...] documented as of this encounter Procedure Notes Dario Noel M.D. - 06/08/2021 11:00 AM CDT HAND [...]
--- OUTSIDE RECORDS SUMMARY | 2022-08-01 06:45 | XMS_ITS | Encounter Summary ---
:[address] [facility] Address [address] [place] [address] Care Team Providers Name Role Phone Unavailable Primary Care Provider Unavailable Reason for Referral Outpatient (Routine) - Closed Specialty Diagnoses / Procedures Referred By Contact Refer red To Contact Diagnoses Dissociation Scapholunate Left Michael Downs M.D. [facility] Procedures ORS Cast Room Visit 200 [address] [place] [address] Referral ID Status Reason Start Date Expiration Date Visits Requ ested Visits Authorized [id number] Closed 03/24/2021 03/24/2022 1 1 Outpatient (Routine) - Closed Specialty Diagnoses / Procedures Referred By Contact Refer red To Contact Diagnoses Dissociation Scapholunate Left Michael Downs M.D. [facility] Procedures ORS Cast Room Visit 200 [address] [place] [address] Referral ID Status Reason Start Date Expiration Date Visits Requ ested Visits Authorized [id number] Closed 03/24/2021 03/24/2022 1 1 Reason for Visit Reason Comments Pain Appointment Request (Routine) - Closed Specialty Diagnoses / Procedures Referred By Contact Refer red To Contact Orthopedic Surgery Diagnoses Fracture Wrist Hand Closed Initial Referral ID Status Reason Start Date Expiration Date Visits Requ ested Visits Authorized [id number] Closed 03/16/2021 03/16/2022 1 1 Encounter Details Date Type Department Care Team Description 03/24/2021 Admin Visit Department of Dario Noel Dissocia tion Orthopedic Surgery in [place] Scapholunate Left [place], [place] 200 [facility] (Primary Dx) [address] [place] [address] [phone] Social History Tobacco Use Types Packs/Day Years [...] you attend rastafari or Patient refused 2021 anabaptism services? Do [...] 70/60 degrees on the contr alateral side. ??Pick Up strength of 10 kg compared to 23 [...] cast was applied by the kevin garcia food service technician - The patient is nonweightbearing bearin [...]
--- OUTSIDE RECORDS SUMMARY | 2022-08-01 06:45 | XMS_ITS | Encounter Summary ---
:1965 Author Organization [facility] Address [address] [place] [address] Care Team Providers Name Role Phone Unavailable Primary Care Provider Unavailable Reason for Visit Reason Comments Communication Encounter Details Date Type Department Care Team Description 02/19/2021 Clinical Communication Department of Rossy Benjamin Neurologic Surgery [place], [place] Ph.D. [address] [place] [address] 200 [place] [phone] Social History Tobacco Use Types Packs/Day Years [...] you attend quaker or Patient refused 2021 pentecostal services? Do [...]
--- OUTSIDE RECORDS SUMMARY | 2022-08-01 06:45 | XMS_ITS | Encounter Summary ---
:1965 Author Organization [facility] Address [address] [place] [address] Care Team Providers Name Role Phone Unavailable Primary Care Provider Unavailable Reason for Visit Reason Comments Nicotine Dependence Encounter Details Date Type Department Care Team Description 07/16/2021 Clinical Communication Department of [facility], Carolyn Mccarthy cotine Dependence Nicotine M.S., Dependence, C.T.T.S., [facility], L.P.C.C. in [address] [place] [phone] [place], [place] [phone] (Work) [phone] Social History Tobacco Use Types Packs/Day Years [...]
--- OUTSIDE RECORDS SUMMARY | 2022-08-01 06:45 | XMS_ITS | Encounter Summary ---
:1965 Author Organization [facility] Address [address] [place] [address] Care Team Providers Name Role Phone Unavailable Primary Care Provider Unavailable Reason for Visit Reason Comments Vertigo and vision problems [facility] Encounter Details Date Type Department Care Team Description 02/18/2021 Clinical Communication Department of Fazal, Robert mendosa and vision Neurology in [place] problems ([facility]) [place], [facility] [address] [place], [place] [address] [place] [phone] [place], [place] [phone] (Work) [phone] Social History Tobacco Use Types Packs/Day Years [...] you attend sikh or Patient refused 2021 bahai services? Do [...] PM CDT Patient calling: She states Dr. Dihel was going to prescribe her something for [...]
--- OUTSIDE RECORDS SUMMARY | 2022-08-01 06:46 | XMS_ITS | Encounter Summary ---
:1965 Author Organization [facility] Address [address] [place] [address] Care Team Providers Name Role Phone Unavailable Primary Care Provider Unavailable Encounter Details Date Type Department Care Team Description 02/03/2021 Orders Only Department of Neurology Leonides Kumar S troke ([facility]) (Primary in [facility]) [address] [facility] [address] [place] [id number] [phone] Social History Tobacco Use Types Packs/Day Years [...] you attend spiritism or Patient refused 2021 sikh services? Do [...]
--- OUTSIDE RECORDS SUMMARY | 2022-08-01 06:46 | XMS_ITS | Encounter Summary ---
:1965 Author Organization [facility] Address [address] [place] [address] Care Team Providers Name Role Phone Unavailable Primary Care Provider Unavailable Encounter Details Date Type Department Care Team Description 02/16/2021 Anesthesia Event Department of Radiology Liban Sunshine APRN, FLUORESCENT LIGHTING MODEL MAKER, DNAP [address] [place] [phone] in [facility] Deep Velasquez M.D. [address] [place] [phone] [phone] Anesthesia Record Procedure Summary Procedure Name Responsible Anesthesia Start Anesthesia Stop Anesthesiologist Time Time IR CEREBRAL Liban Sunshine APRN, 02/16/21 0825 02/16/21 1100 INTRACRANIAL ARTERY FLUORESCENT LIGHTING MODEL MAKER, DNAP EMBOLIZATION Events Date Time Event Comment [...] h andoff to the receiving staff during [employer] [facility] [employer] [facility] we 1. Identified the patient 2. [...] 1,000 units/mL injection 6,000 Units heparin standard 56724 Units/250 mL in 0.45 % Sodium C [...] you attend mosque or Patient refused 2021 hinduism services? Do you belong to any clubs or No 05/17/2022 organizations such as mosque groups, unions, [employer] or athletic groups, or school groups? How [...] Room / Location: Department of Radiology in [place], [place] Anesthesia Start: 824 Anesthesia Stop: 1100 [...] Dr. Castillo. Location: Department of Radiology in [place], [place] Pertinent components of the patient's history [...] with patient /legal guardian or through an drum puller. Risks/Benefits/Alternatives of Blood transfusion discussed with patient [...]
--- OUTSIDE RECORDS SUMMARY | 2022-08-01 06:46 | XMS_ITS | Encounter Summary ---
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 thalami (series 3 image 36), bilateral INSURANCE CLAIMS ANALYST regio n (left greater than right, [...] bilateral thalami (series 3 image 36), bilateral INSURANCE CLAIMS ANALYST regio n (left greater than right, [...] bilateral thalami (series 3 image 36), bilateral INSURANCE CLAIMS ANALYST regio n (left greater than right, [...] bilateral thalami (series 3 image 36), bilateral INSURANCE CLAIMS ANALYST regio n (left greater than right, [...] POC, V Asymptomatic (02/11/2021 12:48 AM CDT) [facility] Method Time Signature SARS Undetected Undetected 02/11/2021 DTLR Coronavirus-2 1:09 AM CDT , RNA, Rapid POC, V Comment: Negative for SARS-CoV-2. The [facility] COVID-19 test is a molecular shahzad t for SARS-CoV-2, the virus that causes COVID- 19. A Negative result means that the [facility] COV ID-19 test did not detect SARS-CoV-2 virus in your sample. [facility] COVID-19 test uses the [employer] Mo nitoring System. This test has received Emergency Use Authorization (EUA) by the U.S. Food and Drug Administration (FDA) and is used per man ufacturer instructions. Performance characteristic s were verified by [facility] in a manner consistent with CLIA requirements. Fact sheets for this Emerg ency Use Authorization (EUA) can be found at the following links: Providers: [email or web address]/[email or web address] [email or web address].pdf Patients: [email or web address] [email or web address].pdf SARS Coronavirus 2, Source Nasopharynx DEFAULT 02/11/2021 1:09 AM CDT DTLR Specimen Anatomical Collection Method Collection Time Receive d Time (Source) Location / / Volume Laterality Varies 02/11/2021 12:48 02/11/2021 (Nasopharynx) AM CDT 12:48 AM CDT Vidhi Vinson M.D. LAB MICROBIOLOGY - GENERAL O RDERABLES Performing Organization Address City/[facility] Phon e Number PERFORMING LABS, [place] [address] INTERFACE Ref Interface [address] [facility] DTLR Performing Labs, [place] [address] Interface [address] [facility] Prothrombin Time (PT) (02/11/2021 12:35 AM CDT) [...] BLOOD ADD-ON Performing Organization Address City/[facility] Phon e Number [facility] - [address] [place], [place] [address] [facility] [place] [address] Laboratories-[facility] [address] [facility] CBC without Differential (02/11/2021 12:35 AM [...] Organization Address City/State/ZIP Code Phon e Number [facility] - [address] [place], [place] [address] [facility] [place] [address] Laboratories-[facility] [address] [facility] (ABNORMAL) Basic Metabolic Panel (02/11/2021 12:34 AM CDT) Analysis Performed At Patho logist Time Signature Potassium, S 4.4 3.6 - 5.2 [...] 02/11/2021 DTL 2:01 AM CDT BUN (Blood Urea 12 6 - 21 02/11/2021 DTL Nitrogen), S mg/dL 2:01 AM CDT Creatinine 0.58 (L) 0.59 - 02/11/2021 DTL 1.04 mg/dL 2:01 AM CDT eGFR-Non >90 >=60 02/11/2021 DTL Black/ mL/min/BSA 2:01 AM CDT [place] Comment: ----ADDITIONAL INFORMATION---- Estimated GFR calculated using [...] BLOOD ADD-ON Performing Organization Address City/[facility] Phon e Number [facility] - [address] [place] [address] AST (Aspartate Aminotransferase) (02/11/2021 12:34 AM CDT) [facility] Method Time Signature Aspartate 15 8 - 43 02/11/2021 DTL Aminotransferase U/L 2:01 AM CDT (AST), S Specimen Anatomical Collection Method Collection Time Receive d Time (Source) Location / / Volume Laterality Blood (Blood, 02/11/2021 12:34 02/11/2021 Venous) AM CDT 12:59 AM CDT Aleisha Vega M.D. LAB BLOOD ADD-ON Performing Organization Address City/State/RUST Code Phon e Number [facility] - [address] [place], [place] [address] [place] [address] ALT (Alanine Aminotransferase) (02/11/2021 12:34 AM CDT) [facility] Method Time Signature Alanine 13 7 - 45 02/11/2021 DTL Aminotransferase U/L 2:01 AM CDT (ALT), S Specimen Anatomical Collection Method Collection Time Receive d Time (Source) Location / / Volume Laterality Blood (Blood, 02/11/2021 12:34 02/11/2021 Venous) AM CDT 12:59 AM CDT Aleisha Vega M.D. LAB BLOOD ADD-ON Performing Organization Address City/State/ZIP Code Phon e Number [facility] - [address] [place], [place] [address] [facility] [place] [address] Laboratories-[facility] [address] [facility] ECG 12 Lead (02/10/2021 11:47 PM CDT) P athologist Signature Ventricular Rate 63 BPM MUSE ECG/Min GA Interval 178 ms MUSE QRSD Interval 96 ms MUSE QT Interval 456 ms MUSE QTC Interval 466 ms MUSE P [place] 54 degrees MUSE R [place] -15 degrees MUSE T Wave [place] 21 degrees MUSE Specimen Anatomical Collection Method [...] Vega M.D. ECG ORDERABLES Performing Organization Address City/[facility]/ZIP Code Phon e Number MUSE MUSE NA [...] daily PRN, anxiety, sleep, Startin g on 02/14/21 at 0815 enoxaparin injection 80 mg Given [...] oral, Daily before breakfast, First dose on Tue02/12/21 at 0700, magnesium oxide 200 mg daily [...] hours PRN, dizziness, nausea, vertigo, Starting on Tue02/12/21 at 1400 Given 02/14/2021 10:19 AM CDT [...] or split tablet. May crush using the RxCrush system. zonisamide capsule 300 mg (ZONEGRAN) Given [...] R.N.) 0803 (Given - Provider: Bettie Jacobson RBrittonNBritton) 1001 (Given - Provider: Sukhdeep Simms R.N. [...] at 2100 FLUoxetine capsule 80 mg (PROzac) 08 (Given - Provider: Shanta Caceres R.N.) 1447 (Given - Provider: Jane Reyes R.N.) 1016 [...] Reyes R.N.)1447 (Given - Provider: Jane Reyes R.N.)2110 (Given - Provider: Kristie Duron R.N. - [...] split tablet. pregabalin capsule 300 mg (LYRICA) 811 (Given - Provi marquis: Tiffanie Caceres R.N.) 1447 (Given - Provider: Jane Reyes R.N.) 1001 (Given - Provider: Sukhdeep Simms R.N. - Comment: late getting to patient) 300 mg, oral, Daily, First dose (after l ast modification) on Tue02/11/21 at 0900 pregabalin capsule 600 mg (LYRICA) 2103 (Given - Provider: Ricky Kenyon RBetsy) 2110 (Given - Provider: Kristie Duron R.N.) [...] 1-100 mL (COMPLETED) 1102 (Given - Provider: Mayte Palmer R.N.) 1-100 mL, intravenous, Once, On 02/17 at [...] 1453 (New Bag - Provider: Jane Reyes R.N.)2358 (Handoff - Provider: Karma Cervantes R.N.) 0130 (Rate/Dose Change - Provider: Lesley Cervantes R.N.)0534 (New Bag - Provider: Karma Cervantes R.N.)1100 (Stopped - Provider: Jane Reyes R.N.) 14 Units/kg/hr ? 82.1 kg Dosing weight [...] 0202 (See Alternative - Provider: Lauren Lauren R.N.)0813 (See Alternative - Provider: Tiffanie Caceres R.N.)1349 (See Alternative - Provider: Tiffanie Caceres R.N.)2001 (See Alternative - Provider: Lauren Lauren R.N.) 0211 (See Alternative - Provider: Lauren Lauren R.N.)0727 (See Alternative - Provider: Jane Reyes R.N.)1446 (See Alternative - Provider: Jane Reyes R.N.)1834 (See Alternative - Provider: Kristie Duron R.N.) 0516 (See Alternative - Provider: Karma Cervantes R.N.)1023 (See Alternative - Provider: Claire Root)1336 (See Alternative - Provider: Sukhdeep Simms R.N.) 650 mg, rectal, Every 4 hours PRN, [...] acetaminophen tablet 650 mg (TYLENOL)(Linked Group 2) 0202 (Given - Provider: Lauren Lauren R.N.)0813 (Given - Provider: Tiffanie Caceres R.N.)1349 (Given - Provider: Tiffanie Caceres R.N.)2001 (Given - Provider: Lauren Lauren R.N.) 021 (Given - Provider: Lauren abbasi RBrittonNBritton)0727 (Given - Provider: Jane Reyes RBetsy)1446 (Given - Provider: Jane Reyes RBetsy)1834 (Not Given - Provider: Kristie Duron R.N. - Reason: Patient/family refused) 0516 (Given - Provider: Karma Cervantes R.N.)1023 (Not Given - Provider: Claire Root - Reason: Patient/family refused)1336 (Given - Provider: Sukhdeep Simms R.N.) 650 mg, oral, Every 4 hours PRN, mild pa in or score 1-3 of 10, moderate pain or score 4-6 of 10, fever, Starting on Tue02/10/21 at 2305, Administer for pain greater than comfort goal or oral temperature greater than 38 degrees Celsius. 2109 (Given - Provider: Kristie Duron R.N.) acetaminophen tablet 650 mg (TYLENOL)(Linked Group 2) 0202 (See Alternative - Provider: Lauren Lauren R.N.)0813 (See Alternative - Provider: Tiffanie Caceres R.N.)1349 (See Alternative - Provider: Tiffanie Caceres R.N.)2001 (See Alternative - Provider: Lauren Lauren R.N.) 021 (See Alternative - Provider: Lauren Lauren R.N.)0727 (See Alternative - Provider: Jane Reyes R.N.)1446 (See Alternative - Provider: Jane Reyes R.N.)1834 (See Alternative - Provider: Kristie Duron R.N.) [...] (TUMS) 0516 (Given - Provider: Karma Cervantes R.N.)1501 (Given - Provider: Tanvi Loza R.N.) 400 mg of calcium, oral, 3 times daily P RN, heartburn, indigestion, Starting on Tue02/13/21 at 1000, Doses listed are in mg of elemental calcium. Take with food. 500 mg calcium carbonate contains 200 mg of elemental calcium. carboxymethylcellulose 0.5 % ophthalmic solution 2 drop (REF RESH PLUS) 0621 (Given - Provider: Lauren Lauren, RBrittonNBritton) 2 drop, both eyes, 3 times daily PRN, dry eyes, Starti ng on Tue02/16/21 at 0604 diazePAM tablet 5 mg (VALIUM) [...] D) 1102 (Given - Provider: Mayte Palmer RBrittonNBritton - Comment: [phone]) 1-200 mL, intravenous, Once in imaging, contrast, [...] PRN, dizzines s, nausea, vertigo, Starting on Tue02/12/21 at 1400 naloxone injection 0.2 mg (NARCAN) 0.2 mg, intravenous, As needed, respirat ory depression, Starting on Tue02/11/21 at 1410, For RASS Score -4 or less, respiratory rate of less than 8 breaths/min. Notify provider/service and rapid response team (if available at institution). nicotine 21 mg/24 hr 1 patch (NICODERM CQ) 6726 (Medic ation Removed - Provider: Tiffanie Caceres RRebekah.)1048 (Medication Applied - Provider: Tiffanie Caceres R.N.) [...]
--- OUTSIDE RECORDS SUMMARY | 2022-08-01 06:46 | XMS_ITS | Encounter Summary ---
:1965 Author Organization [facility] Address [address] [place] [address] Care Team Providers Name Role Phone Unavailable Primary Care Provider Unavailable Encounter Details Date Type Department Care Team Description 02/05/2021 Orders Only Pharmacy Prior Auth RO Elsewhere, Pcp [phone] Social History Tobacco Use Types Packs/Day Years [...] you attend adventist or Patient refused 2021 orthodox services? Do [...]
--- OUTSIDE RECORDS SUMMARY | 2022-08-01 06:46 | XMS_ITS | Encounter Summary ---
:1965 Author Organization [facility] Address [address] [place] [address] Care Team Providers Name Role Phone Unavailable Primary Care Provider Unavailable Encounter Details Date Type Department Care Team Description 02/11/2021 Ancillary Procedure Department of Radiology [place] in [facility] raúl Quintana 200 [facility] 200 [place] [phone] (Wo rk) Social History Tobacco Use Types [...] you attend baptist or Patient refused 2021 evangelical services? Do [...] bilateral thalami (series 3 image 36), bilateral DRY ROASTER 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 bilateral thalami (series 3 image 36), bilateral DRY ROASTER 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 bilateral thalami (series 3 image 36), bilateral DRY ROASTER 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 bilateral thalami (series 3 image 36), bilateral DRY ROASTER 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 bilateral thalami (series 3 image 36), bilateral DRY ROASTER 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 bilateral thalami (series 3 image 36), bilateral DRY ROASTER 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
--- OUTSIDE RECORDS SUMMARY | 2022-08-01 06:46 | XMS_ITS | Encounter Summary ---
:1965 Author Organization [facility] Address [address] [place] [address] Care Team Providers Name Role Phone Unavailable Primary Care Provider Unavailable Reason for Visit Reason Onset Date Comments saul med request 02/03/2021 Encounter Details Date Type Department Care Team Description 02/03/2021 Clinical Communication Department of [facility], trinidad Mccarthy med request Nicotine Dependence, M.S., C.T.T.S., [facility] in [address] [place] [address] [place], [place] [phone] (Work) [phone] Social History Tobacco Use Types Packs/Day Years [...] you attend worship or Patient refused 2021 scientology services? 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
--- OUTSIDE RECORDS SUMMARY | 2022-08-01 06:46 | XMS_ITS | Encounter Summary ---
:1965 Author Organization [facility] Address [address] [place] [address] Care Team Providers Name Role Phone Unavailable Primary Care Provider Unavailable Encounter Details Date Type Department Care Team Description 02/11/2021 Ancillary Procedure Department of Radiology [place] in [facility] raúl Quintana 200 [facility] 200 [place] [phone] (Wo rk) Social History Tobacco Use Types [...] you attend yarsanism or Patient refused 2021 congregational services? Do [...] bilateral thalami (series 3 image 36), bilateral CAMP BOSS 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 bilateral thalami (series 3 image 36), bilateral CAMP BOSS 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 bilateral thalami (series 3 image 36), bilateral CAMP BOSS 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 bilateral thalami (series 3 image 36), bilateral CAMP BOSS 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 bilateral thalami (series 3 image 36), bilateral CAMP BOSS 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 bilateral thalami (series 3 image 36), bilateral CAMP BOSS 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
--- OUTSIDE RECORDS SUMMARY | 2022-08-01 06:46 | XMS_ITS | Encounter Summary ---
:1965 Author Organization [facility] Address [address] [place] [address] Care Team Providers Name Role Phone Unavailable Primary Care Provider Unavailable Encounter Details Date Type Department Care Team Description 02/11/2021 Ancillary Procedure Department of Radiology [place] in [facility] raúl Quintana 200 [facility] 200 [place] [phone] (Wo rk) Social History Tobacco Use Types [...] you attend baptism or Patient refused 2021 jew services? Do [...] bilateral thalami (series 3 image 36), bilateral NARROW GAUGE OPERATOR 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 bilateral thalami (series 3 image 36), bilateral NARROW GAUGE OPERATOR 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 bilateral thalami (series 3 image 36), bilateral NARROW GAUGE OPERATOR 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 bilateral thalami (series 3 image 36), bilateral NARROW GAUGE OPERATOR 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 bilateral thalami (series 3 image 36), bilateral NARROW GAUGE OPERATOR 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 bilateral thalami (series 3 image 36), bilateral NARROW GAUGE OPERATOR 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
--- OUTSIDE RECORDS SUMMARY | 2022-08-01 06:47 | XMS_ITS | Encounter Summary ---
:1965 Author Organization [facility] Address [address] [place] [address] Care Team Providers Name Role Phone Unavailable Primary Care Provider Unavailable Reason for Referral MRI/CAT/PET Scan (Routine) - Closed Specialty Diagnoses / Procedures Referred By Contact Refer red To Contact Radiology Diagnoses Robert Akhtar M.D. [facility] Procedures CT Head Neck Angiogram with IV Contrast [address] [place] [address] Referral ID Status Reason Start Date Expiration Date Visits Requ ested Visits Authorized [id number] Closed 12/30/2020 12/30/2021 1 1 RAM COORDINATOR EXECUTIVE EDUCATION MRI/CAT/PET Scan (Routine) - Closed Specialty Diagnoses / Procedures Referred By Contact Refer red To Contact Radiology Diagnoses Stroke Cerebrovascular Accident Personal History Robert Diehl M.D. [facility] Procedures CT Head without IV Contrast [address] [place] [address] Referral ID Status Reason Start Date Expiration Date Visits Requ ested Visits Authorized [id number] Closed 12/30/2020 12/30/2021 1 1 RAM COORDINATOR EXECUTIVE EDUCATION Reason for Visit MRI/CAT/PET Scan (Routine) - Closed Specialty Diagnoses / Procedures Referred By Contact Refer red To Contact Radiology Diagnoses Ataxia oRbert Diehl M.D. [facility] Procedures CT Head Neck Angiogram with IV Contrast [address] [place] [address] Referral ID Status Reason Start Date Expiration Date Visits Requ ested Visits Authorized [id number] Closed 12/30/2020 12/30/2021 1 1 Encounter Details Date Type Department Care Team Description 12/31/2020 Hospital Encounter Department of Robert Diehl Stroke Cerebrovascular Accident Personal History; Radiology, Severiano Celaya M.D. [facility], in [address] [place] [phone] [place] [address] [place], [place] (Work[place] [phone] Social History Tobacco Use Types Packs/Day Years [...] you attend temple or Patient refused 2021 rastafarian services? Do [...] 10 mg by mouth 0 tablet daily. FLUoxetine (PROzac) 40 mg Take 80 mg by mouth 0 capsule every morning. lamoTRIgine (LaMICtal) 200 Take 200 mg by 3 02/08 mg tablet mouth 2 (two) times a day. MAG-G 27 mg magnesium (500 Take 1 tablet by 3 mg) tablet mouth at bedtime. polyethylene glycol Take 17 g by mouth [...] 160-4.5 (two) times a day. mcg/actuation inhaler cholecalciferol (VITAMIN Take 125 mcg by 0 06/25/2022 D3) 125 mcg (5,000 Unit) mouth every tablet morning. clindamycin (CLINDAGEL) 1 as needed. 0 11/13/2019 02/02/2021 % gel cyanocobalamin, vitamin Place 2,500 mcg 3 019 02/26/2022 B-12, 2,500 mcg tablet, under the tongue sublingual every morning. diazePAM (VALIUM) 10 mg Take 10 mg by mouth 0 06/17/2022 tablet 2 (two) times a day as needed. dihydroergotamine Administer 1 spray 1 03/28/2019 02/02/2021 [...] hyclate 0 07/31/202002/02 (VIBRAMYCIN) 100 mg capsule esomeprazole (NexIUM) 40 Take 40 mg by mouth 0 06/17/[address] capsule every morning before breakfast. estradiol (VIVELLE-DOT) APPLY 1 PATCH TWICE 11 [...] 0 201802/02/2021 mcg tablet mouth every morning. furosemide (LASIX) 40 mg Take 40 mg by mouth 0 06/17/2022 tablet 2 (two) times a day. Per patient usually takes daily lidocaine (LIDODERM) 5 % Apply 1 patch [...] for two to six weeks until off. ondansetron ODT Take 1 tablet by 0 [...] in the morning, 2 caps at night. pregabalin (LYRICA) 300 mg Take 600 mg by 0 09/1806/17/2022 capsule mouth 2 (two) times a day. promethazine (PHENERGAN) Take 25 mg by mouth 0 02/02/2021 25 mg tablet every 6 (six) hours as needed for nausea. QUEtiapine (SEROquel) 50 Take 50 mg by mouth 0 06/17/2022 mg tablet at bedtime. Refresh Tears 0.5 % 0 12/03/201902/02 ophthalmic [...] Robert Diehl M.D. - 12/31/2020 5:17 PM PROGRAM COORDINATOR EXECUTIVE EDUCATION I called and discussed the results with [...] by: Robert Diehl M.D. 12/31/20 5:16 PM PROGRAM COORDINATOR EXECUTIVE EDUCATION Stroke Cerebrovascular Accident Personal History Plan: CT Head without IV Contrast, CT Head without IV Contrast Ataxia Plan: CT Head Neck Angiogram with IV Contrast, CT Head Neck Angiogram with IV Contrast RAM COORDINATOR EXECUTIVE EDUCATION documented in this encounter Plan of Treatment Not on filedocumented as of this encounter Procedures Procedure Name Priority Date/Time Associated Diagnosis Comme nts CT HEAD WITHOUT RAD - Routine 12/31/2020 3:34 Stroke Results for IV CONTRAST (most inpatients PM PROGRAM COORDINATOR EXECUTIVE EDUCATION Cerebrovascular this pro cedure and all Accident Personal are in the outpatients) History results section. CT HEAD NECK RAD - Routine 12/31/2020 3:34 Ataxia Results for ANGIOGRAM WITH (most inpatients PM PROGRAM COORDINATOR EXECUTIVE EDUCATION this proc edure IV CONTRAST and all are in the outpatients) results section. documented in this encounter Results CT Head Neck Angiogram with IV Contrast (12/31/2020 3:34 PM PROGRAM COORDINATOR EXECUTIVE EDUCATION) Anatomical Region Laterality Modality Head and Neck, Neuroradiology RST LOS, N/A C omputed Tomography, Computed Neuroradiology ARZ LOS, Neuroradiology T omography FLA [facility] Specimen (Source) Anatomical Collection Method Collection Time Re ceived Time Location / / Volume Laterality 12/31/2020 3:49 PM PROGRAM COORDINATOR EXECUTIVE EDUCATION Impressions 12/31/2020 4:54 PM PROGRAM COORDINATOR EXECUTIVE EDUCATION 1. Evolving right cerebellar infarct with decreased edema since CT of 12/22/2020. 2. 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 Narrative 12/31/2020 4:54 PM PROGRAM COORDINATOR EXECUTIVE EDUCATION EXAM: CT HEAD WITHOUT IV CONTRAST, CT [...] discussed with ordering physici Dr. Fazal abbasi ([id number]) at 4:54 PM on 12/31/2020. Procedure Note [...] discussed with ordering physici Dr. Fazal abbasi ([id number]) at 4:54 PM on 12/31/2020. IMPRESSION: 1. [...] Head without IV Contrast (12/31/2020 3:34 PM PROGRAM COORDINATOR EXECUTIVE EDUCATION) Anatomical Region Laterality Modality Head, Neuroradiology RST LOS, N/A Computed T omography, Computed Neuroradiology ARZ LOS, Neuroradiology T omography FLA LOS Specimen (Source) Anatomical Collection Method Collection Time Re ceived Time Location / / Volume Laterality 12/31/2020 3:49 PM PROGRAM COORDINATOR EXECUTIVE EDUCATION Impressions 12/31/2020 4:54 PM PROGRAM COORDINATOR EXECUTIVE EDUCATION 1. Evolving right cerebellar infarct with decreased [...] oid ICA aneurysms. Narrative 12/31/2020 4:54 PM PROGRAM COORDINATOR EXECUTIVE EDUCATION EXAM: CT HEAD WITHOUT IV CONTRAST, CT [...] discussed with ordering physici Dr. Fazal abbasi ([id number]) at 4:54 PM on 12/31/2020. Procedure Note [...] Findings discussed with ordering physici anDr. Diehl ([id number]) at 4:54 PM on 12/31/2020. IMPRESSION: 1. [...] mg iodine/mL solution Given 12/31/2020 3:34 PM PROGRAM COORDINATOR EXECUTIVE EDUCATION 1 00 mL 1-200 mL (OMNIPAQUE) 1-200 mL, intravenous, Once in imaging, contrast, Starting on Tue12/31/20 at 1411, For 1 dose, Imaging Protocol Orders, Dose per Radiant Medication Guidelines sodium chloride (PF) 0.9 % injection 1-1 00 mL Given 12/31/2020 3:34 PM PROGRAM COORDINATOR EXECUTIVE EDUCATION 35 mL 1-100 mL, intravenous, Once, On Tue12/31/20 at 1415, For 1 dose, Imaging Protocol Orders documented in this encounter Additional Health Concerns Assessment Noted Time PHQ-9 Depression Total Score: 5 04/05/2019 8:00 AM CDT documented as of this encounter
--- OUTSIDE RECORDS SUMMARY | 2022-08-01 06:47 | XMS_ITS | Encounter Summary ---
:1965 Author Organization [facility] Address [address] [place] [address] Care Team Providers Name Role Phone Unavailable Primary Care Provider Unavailable Encounter Details Date Type Department Care Team Description 08/06/2020 Clinical Communication Department of Honorio, Otorhinolaryngology in [place], [place] [address] [place] [address] [facility] [phone] [place] [phone] Social History Tobacco Use Types Packs/Day Years [...] you attend sikhism or Patient refused 2021 denominational services? Do [...] states that she had them done at [facility]. I called the facility and [...] she had a CT Scan today in [place]. If her doctor there feels she needs [...]
--- OUTSIDE RECORDS SUMMARY | 2022-08-01 06:47 | XMS_ITS | Encounter Summary ---
:1965 Author Organization [facility] Address [address] [place] [address] Care Team Providers Name Role Phone Unavailable Primary Care Provider Unavailable Reason for Referral MRI/CAT/PET Scan (Routine) - Closed Specialty Diagnoses / Procedures Referred By Contact Refer red To Contact Radiology Diagnoses Ataxia Robert Fowler M.D. [facility] Procedures CT Head Neck Angiogram with IV Contrast [address] [place] [address] Referral ID Status Reason Start Date Expiration Date Visits Requ ested Visits Authorized [id number] Closed 12/31/2020 12/31/2021 1 1 CH CORD BINDER Outpatient (Routine) - Closed Specialty Diagnoses / Procedures Referred By Contact Refer red To Contact Video Medicine Diagnoses Stroke Cerebrovascular Accident Personal History Robert Fowler Roche [facility] Margot Quintana [address] [place] [address] Referral ID Status Reason Start Date Expiration Date Visits Requ ested Visits Authorized [id number] Closed 12/30/2020 12/30/2021 1 1 CH CORD BINDER MRI/CAT/PET Scan (Routine) - Closed Specialty Diagnoses / Procedures Referred By Contact Refer red To Contact Radiology Diagnoses Ataxia Robert Fowler M.D. [facility] Procedures CT Head Neck Angiogram with IV Contrast [address] [place] [address] Referral ID Status Reason Start Date Expiration Date Visits Requ ested Visits Authorized [id number] Closed 12/30/2020 12/30/2021 1 1 CH CORD BINDER MRI/CAT/PET Scan (Routine) - Closed Specialty Diagnoses / Procedures Referred By Contact Refer red To Contact Radiology Diagnoses Stroke Cerebrovascular Accident Personal History Robert Fowler M.D. [facility] Procedures CT Head without IV Contrast [address] [place] [address] Referral ID Status Reason Start Date Expiration Date Visits Requ ested Visits Authorized [id number] Closed 12/30/2020 12/30/2021 1 1 CH CORD BINDER Reason for Visit Reason Comments Symptom Assessment Encounter Details Date Type Department Care Team Description 12/22/2020 Clinical Communication Department of Robert Fowler mptom Assessment Neurology jimmy Celaya M.D. [place], [address] [place], [place] [address] [facility] [address] [place], [place] [phone] (Work) [phone] Social History Tobacco Use Types Packs/Day Years [...] you attend samaritan or Patient refused 2021 gnosticism services? Do [...] Robert Fowler M.D. - 12/31/2020 5:17 PM FRENCH CORD BINDER Addended by: ROBERT FOWLER on: 12/31/2020 05:17 PM Modules accepted: Orders CH CORD BINDER Addendum Note - Robert Fowler M.D. - 12/30/2020 8:34 AM FRENCH CORD BINDER Addended by: ROBERT FOWLER on: 12/30/2020 08:34 AM Modules accepted: Orders CH CORD BINDER Telephone Encounter - Zuly Alex R.N. - 12/29/2020 4:48 PM CST The patient telephones back today. She did present to the local ED in [place] for evaluation of her vertigo. She shares [...] needs to get in contact with her [facility] neurologist. The patient reports that at her [...] 911 or have someone drive her to [facility] as well. She agrees to call 911 for recurrent episodes. RECOMMENDED LEVEL OF CARE. The patient/caller is willing and able to follow the nurse's recommendation. RESPONSE TO ADVICE GIVEN. Patient/caller able to teach back. REFERENCES UTILIZED. Nursing clinical judgment utilized. Other interventions or information: Provider advice. TYPE OF PHONE CALL. Symptom assessment. CH CORD BINDER Telephone Encounter - Robert Fowler M.D. - [...] by: Robert Fowler M.D. 12/23/20 8:21 AM FRENCH CORD BINDER CH CORD BINDER Telephone Encounter - Zuly Alex R.N. - 12/22/2020 5:25 PM CST 5:17 pm. Tried calling to assure she could reach her son to take her to the ED. No answer. CH CORD BINDER Telephone Encounter - Zuly Alex R.N. - [...] her to the nearest emergency room or [id number]. She expressed concerns about going to the [...] the nearest ED which would be in [place]. He did not answer. I offered to [...] advice. TYPE OF PHONE CALL. Symptom assessment. CH CORD BINDER Telephone Encounter - Robert Fowler M.D. - 12/22/2020 3:29 PM CST Please call patient in triage whether she needs to be seen in the local emergency department for concern of acute stroke? CH CORD BINDER documented in this encounter Plan of Treatment Scheduled Referrals Name Type Priority Associated Diagnoses Order S chedule Video anyplace Outpatient Referral Routine Stroke Cerebrovascu lar Expected: visit Accident Personal 12/30/2020 , History Expires: 12/30/2023 documented as of this encounter Results CT Head Neck Angiogram with IV Contrast (01/30/2021 3:24 PM FRENCH CORD BINDER) Anatomical Region Laterality Modality Head and Neck, Neuroradiology RST LOS, N/A C omputed Tomography, Computed Neuroradiology ARZ LOS, Neuroradiology T omography FLA LOS Specimen (Source) Anatomical Collection Method Collection Time Re ceived Time Location / / Volume Laterality 01/30/2021 2:25 PM FRENCH CORD BINDER Impressions 01/30/2021 3:18 PM FRENCH CORD BINDER 1. 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 Slightly decreased high-grade stenosis a t the V3/4 junction with increased flow in the distal V4 segment. 2. Evolving, now chronic right cerebella r infarct. 3. 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 Narrative 01/30/2021 3:18 PM FRENCH CORD BINDER EXAM: CT HEAD NECK ANGIOGRAM WITH IV [...] normal caliber bilater al MCAs, ACAs and masonry contractor. Patent anterior and right posterior communicating arteri [...] normal caliber bilater al MCAs, ACAs and masonry contractor. Patent anterior and right posterior communicating arteri [...] Angiogram with IV Contrast (12/31/2020 3:34 PM FRENCH CORD BINDER) Anatomical Region Laterality Modality Head and Neck, Neuroradiology RST LOS, N/A C omputed Tomography, Computed Neuroradiology ARZ LOS, Neuroradiology T omography FLA [facility] Specimen (Source) Anatomical Collection Method Collection Time Re ceived Time Location / / Volume Laterality 12/31/2020 3:49 PM FRENCH CORD BINDER Impressions 12/31/2020 4:54 PM FRENCH CORD BINDER 1. Evolving right cerebellar infarct with decreased [...] oid ICA aneurysms. Narrative 12/31/2020 4:54 PM FRENCH CORD BINDER EXAM: CT HEAD WITHOUT IV CONTRAST, CT [...] Findings discussed with ordering Dr. Fazal ching ([id number]) at 4:54 PM on 12/31/2020. Procedure Note [...] Findings discussed with ordering physici anDr. Fowler ([id number]) at 4:54 PM on 12/31/2020. IMPRESSION: 1. [...] Head without IV Contrast (12/31/2020 3:34 PM FRENCH CORD BINDER) Anatomical Region Laterality Modality Head, Neuroradiology RST LOS, N/A Computed T omography, Computed Neuroradiology ARZ LOS, Neuroradiology T omography FLA LOS Specimen (Source) Anatomical Collection Method Collection Time Re ceived Time Location / / Volume Laterality 12/31/2020 3:49 PM FRENCH CORD BINDER Impressions 12/31/2020 4:54 PM FRENCH CORD BINDER 1. Evolving right cerebellar infarct with decreased [...] oid ICA aneurysms. Narrative 12/31/2020 4:54 PM FRENCH CORD BINDER EXAM: CT HEAD WITHOUT IV CONTRAST, CT [...] discussed with ordering physici Dr. Fazal abbasi ([id number]) at 4:54 PM on 12/31/2020. Procedure Note [...] Findings discussed with ordering Dr. Fazal ching ([id number]) at 4:54 PM on 12/31/2020. IMPRESSION: 1. [...]
--- OUTSIDE RECORDS SUMMARY | 2022-08-01 06:47 | XMS_ITS | Encounter Summary ---
:1965 Author Organization [facility] Address [address] [place] [address] Care Team Providers Name Role Phone Unavailable Primary Care Provider Unavailable Encounter Details Date Type Department Care Team Description 01/20/2021 Anticoagulation Visit Department of Neurology Elvira Villalta in [facility] raúl [place] [address] [facility] [address] [place] [phone] Social History Tobacco Use Types Packs/Day Years [...] you attend rastafari or Patient refused 2021 mormonism services? Do [...] call from Dr. Rosalva Aguila's nurse at [facility]. She states they have received our fax [...] Transfer of anticoagulation management back to PCP. A EXECUTIVE documented in this encounter Plan of Treatment Not on filedocumented as of this encounter Visit Diagnoses Not on filedocumented in this encounter Additional Health Concerns Assessment Noted Time PHQ-9 Depression Total Score: 5 04/05/2019 8:00 AM CDT documented as of this encounter
--- OUTSIDE RECORDS SUMMARY | 2022-08-01 06:47 | XMS_ITS | Encounter Summary ---
:1965 Author Organization [facility] Address [address] [place] [address] Care Team Providers Name Role Phone Unavailable Primary Care Provider Unavailable Reason for Visit Reason Comments Michel Encounter Details Date Type Department Care Team Description 09/11/2020 Clinical Communication Department of Robert Diehl W8B/Scharf Neurology in [place], [place] 200 [facility] [address] [place] [phone] [phone] Social History Tobacco Use Types Packs/Day Years [...] you attend cheondoism or Patient refused 2021 christianity services? Do [...]
--- OUTSIDE RECORDS SUMMARY | 2022-08-01 06:47 | XMS_ITS | Encounter Summary ---
:1965 Author Organization [facility] Address [address] [place] [address] Care Team Providers Name Role Phone Unavailable Primary Care Provider Unavailable Encounter Details Date Type Department Care Team Description 01/05/2021 Anticoagulation Visit Department of Neurology Elvira Villalta in [facility] rotational moulding operator [place] [address] [facility] [address] [place] [phone] Social History Tobacco Use Types Packs/Day Years [...] you attend methodist or Patient refused 2021 orthodox services? Do [...] an INR at her outside clinic in [place], [place] today and I called the lab [phone] and was told she did not report [...] advised for today, she report to the [place] lab as scheduled. Ms. Mosquera states she will do that. RECOMMENDED LEVEL OF CARE. The patient/caller is willing and able to follow the nurse's recommendation. RESPONSE TO ADVICE GIVEN. Patient/caller able to teach back. REFERENCES UTILIZED. Nursing clinical judgment utilized. Other interventions or information: Provider advice. TYPE OF PHONE CALL. INR management SPOOLER TENDER Elvira Villalta R.N. - 01/05/2021 4:06 PM CST Patient's INR today is 1.47. Discussed with Dr. Neri Acevedo ([id number]) who advises that the patient take 7.5 [...] OF PHONE CALL. Test results, symptom assessment. SPOOLER TENDER documented in this encounter Plan of Treatment Not on filedocumented as of this encounter Procedures Procedure Name Priority Date/Time Associated Comments Diagnosis PROTHROMBIN TIME Routine 01/05/2021 3:15 PM Resul ts for this (PT), P JACK SPOOLER TENDER procedure are i n the results section. documented in this encounter Results Prothrombin Time (PT) (01/05/2021 3:15 PM JACK SPOOLER TENDER) P athologist Signature EXT INR 1.47 OTHER (SPECIFY IN HEADING SAW OPERATOR) Specimen (Source) Anatomical Collection Method Collection Time Re ceived Time Location / / Volume Laterality Blood (Blood, 01/05/2021 3:15 PM Venous) JACK SPOOLER TENDER Narrative This result has an attachment that is no t available. Resulting Agency Comment [facility] Historical Provider LAB BLOOD ADD-ON Performing Organization Address City/State/ZIP Code Phon e Number OTHER (SPECIFY IN HEADING SAW OPERATOR) OTHER (SPECIFY IN HEADING SAW OPERATOR) N/A documented in this encounter Visit Diagnoses Not on filedocumented in this encounter Additional Health Concerns Assessment Noted Time PHQ-9 Depression Total Score: 5 04/05/2019 8:00 AM CDT documented as of this encounter
--- OUTSIDE RECORDS SUMMARY | 2022-08-01 06:47 | XMS_ITS | Encounter Summary ---
:1965 Author Organization [facility] Address [address] [place] [address] Care Team Providers Name Role Phone Unavailable Primary Care Provider Unavailable Reason for Visit Outpatient (Routine) - Closed Specialty Diagnoses / Procedures Referred By Contact Refer red To Contact Video Medicine Diagnoses Stroke Cerebrovascular Accident Personal History Robert Diehl [facility] M.D. [address] [place] [address] Referral ID Status Reason Start Date Expiration Date Visits Requ ested Visits Authorized [id number] Closed 12/30/2020 12/30/2021 1 1 Encounter Details Date Type Department Care Team Description 02/02/2021 Virtual Visit Department of Robert Diehl Stroke Cere brovascular Neurology jimmy Celaya M.D. Accident Personal [place], [place] [address] [facility] History [address] [place] [phone] Social History Tobacco Use Types Packs/Day Years [...] you attend yarsani or Patient refused 2021 buddhism services? Do you belong to any clubs or No 05/17/2022 organizations such as yarsani groups, unions, [employer] or athletic groups, or school groups? How [...] department over the weekend was transferred to [facility] service where she is currently admitted. Therefore she will not be present for today's 8:00 a.m. Outpatient consultation. Highly appreciative of the [facility] Stroke Service cares. No charge. Electronically signed by: Robert Diehl M.D. 02/02/21 7:46 AM INDUSTRIAL GAS SERVICER STRIAL GAS SERVICER documented in this encounter Plan of Treatment Not on filedocumented as of this encounter Visit Diagnoses Diagnosis Stroke Cerebrovascular Accident Personal History documented in this encounter Additional Health Concerns Assessment Noted Time PHQ-9 Depression Total Score: 23 02/02/2021 11:[address] documented as of this encounter
--- OUTSIDE RECORDS SUMMARY | 2022-08-01 06:47 | XMS_ITS | Encounter Summary ---
:1965 Author Organization [facility] Address [address] [place] [address] Care Team Providers Name Role Phone Unavailable Primary Care Provider Unavailable Encounter Details Date Type Department Care Team Description 01/12/2021 Anticoagulation Visit Department of Neurology Zuly Alex in [facility] raúl [place] [address] [facility] [address] [place] [phone] Social History Tobacco Use Types Packs/Day Years [...] you attend taoist or Patient refused 2021 jewish services? Do [...] Target INR 2.0-3.[address] Argenis Diehl ([phone]). The patient was scheduled for an INR recheck on 01/09/21, however did not have an INR draw until late that afternoon. The results did not become available until after clinic hours. Patient's INR on 01/09/21 was 2.41. Discussed with Dr. Argenis Diehl ([phone]) who advises that the patient follow a [...] OF PHONE CALL. Test results, symptom assessment. ERT GROWER documented in this encounter Plan of Treatment Not on filedocumented as of this encounter Procedures Procedure Name Priority Date/Time Associated Diagnosis Comme nts PROTHROMBIN TIME (PT), Routine 01/09/2021 Resul ts for this P procedure are i n the results section . documented in this encounter Results Prothrombin Time (PT) (01/09/2021) P athologist Signature EXT INR 2.40 OTHER (SPECIFY IN PAPER BOX CUTTER) Specimen (Source) Anatomical Location Collection Method / Collectio n Time Received Time / Laterality Volume Blood (Blood, 01/09/2021 Venous) Narrative This result has an attachment that is no t available. Historical Provider LAB BLOOD ADD-ON Performing Organization Address City/State/ZIP Code Phon e Number OTHER (SPECIFY IN PAPER BOX CUTTER) OTHER (SPECIFY IN PAPER BOX CUTTER) N/A documented in this encounter Visit Diagnoses Not on filedocumented in this encounter Additional Health Concerns Assessment Noted Time PHQ-9 Depression Total Score: 5 04/05/2019 8:00 AM CDT documented as of this encounter
--- OUTSIDE RECORDS SUMMARY | 2022-08-01 06:47 | XMS_ITS | Encounter Summary ---
:1965 Author Organization [facility] Address [address] [place] [address] Care Team Providers Name Role Phone Unavailable Primary Care Provider Unavailable Reason for Visit Reason Comments Tahmina/Fazal Encounter Details Date Type Department Care Team Description 01/26/2021 Clinical Communication Department of Robert Diehl W8B/Scharf Neurology in .. [place], [place] 200 [facility] 200 [place] [phone] Social History Tobacco Use Types Packs/Day Years [...] you attend orthodox or Patient refused 2021 scientology services? Do [...] 01/26/2021 5:19 PM CST Great thank you SSORIES REPAIRER Addendum Note - Robert Diehl M.D. - 01/26/2021 2:50 PM ACCESSORIES REPAIRER Addended by: ROBERT DIEHL on: 01/26/2021 02:50 PM Modules accepted: Orders SSORIES REPAIRER Telephone Encounter - Robert Diehl M.D. - 01/26/2021 2:49 PM CST Believe MRI is ordered now. SSORIES REPAIRER Telephone Encounter - Robert Diehl M.D. - 01/26/2021 2:47 PM CST I am sorry to learn of the patient's additional symptoms Unfortunately we cannot react as quickly as the emergency department which was recommended locally I will order a brain MRI and in-person or video visit to follow-up. Thank you SSORIES REPAIRER Telephone Encounter - Allyssa Amaya - 01/26/2021 12:56 PM CST Patient calls checking the status of this request. Thank you. SSORIES REPAIRER documented in this encounter Plan of Treatment Not on filedocumented as of this encounter Visit Diagnoses Diagnosis Stroke Cerebrovascular Accident Personal History - Primary documented in this encounter Additional Health Concerns Assessment Noted Time PHQ-9 Depression Total Score: 5 04/05/2019 8:00 AM CDT documented as of this encounter
--- OUTSIDE RECORDS SUMMARY | 2022-08-01 06:47 | XMS_ITS | Encounter Summary ---
:1965 Author Organization [facility] Address [address] [place] [address] Care Team Providers Name Role Phone Unavailable Primary Care Provider Unavailable Reason for Referral MRI/CAT/PET Scan (Routine) - Closed Specialty Diagnoses / Procedures Referred By Contact Refer red To Contact Radiology Diagnoses Robert Akhtar M.D. [facility] Procedures CT Head Neck Angiogram with IV Contrast [address] [place], [place] [address] Referral ID Status Reason Start Date Expiration Date Visits Requ ested Visits Authorized [id number] Closed 12/31/2020 12/31/2021 1 1 HALMIC AIDE Reason for Visit MRI/CAT/PET Scan (Routine) - Closed Specialty Diagnoses / Procedures Referred By Contact Refer red To Contact Radiology Diagnoses Ataxia Robert Diehl M.D. [facility] Procedures CT Head Neck Angiogram with IV Contrast [address] [place], [place] [address] Referral ID Status Reason Start Date Expiration Date Visits Requ ested Visits Authorized [id number] Closed 12/31/2020 12/31/2021 1 1 Encounter Details Date Type Department Care Team Description 01/30/2021 Hospital Encounter Department of Radiology, Akhil Diehl Ataxia [facility], in M.D. [place], [place] [address] [place] [address] [place] [phone] (Babatunde billings) Social History Tobacco Use Types Packs/Day Years [...] you attend religion or Patient refused 2021 yarsanism services? Do [...] (TESSALON Take 100 mg by mouth 6 04/2 12/2018 PERLES) 100 mg capsule 3 (three) times a day as needed for cough. cetirizine (ZyrTEC) 10 mg Take 10 mg by mouth 0 tablet daily. FLUoxetine (PROzac) 40 mg Take 80 mg by mouth 0 capsule every morning. ipratropium-albuteroL Inhale 3 mL [...] mcg (5,000 Unit) mouth every morning. tablet clindamycin (CLINDAGEL) 1 as needed. 0 11/13/2019 [...] 2 caps at night. pregabalin (LYRICA) 300 Take 600 mg by mouth 0 06/17/2022 mg capsule 2 (two) times a day. promethazine (PHENERGAN) [...] this ANGIOGRAM WITH IV (most inpatients PM OPHTHALMIC AIDE proced ure are in CONTRAST and all the results outpatients) section. documented in this encounter Results CT Head Neck Angiogram with IV Contrast (01/30/2021 3:24 PM OPHTHALMIC AIDE) Anatomical Region Laterality Modality Head and Neck, Neuroradiology RST LOS, N/A C omputed Tomography, Computed Neuroradiology ARZ LOS, Neuroradiology T omography FLA [facility] Specimen (Source) Anatomical Collection Method Collection Time Re ceived Time Location / / Volume Laterality 01/30/2021 2:25 PM OPHTHALMIC AIDE Impressions 01/30/2021 3:18 PM OPHTHALMIC AIDE 1. 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 Slightly decreased high-grade stenosis a t the V3/4 junction with increased flow in the distal V4 segment. 2. Evolving, now chronic right cerebella r infarct. 3. 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 Narrative 01/30/2021 3:18 PM OPHTHALMIC AIDE EXAM: CT HEAD NECK ANGIOGRAM WITH IV [...] normal caliber bilater al MCAs, ACAs and green marketing specialist. Patent anterior and right posterior communicating arteri [...] normal caliber bilater al MCAs, ACAs and green marketing specialist. Patent anterior and right posterior communicating arteri [...] ICA supraclinoid and para clinoid aneurysms. Robert NIELSON CT PROCEDURES documented in this encounter Visit Diagnoses Diagnosis Ataxia documented in this encounter Administered Medications Inactive Administered Medications - up to 3 most recent administrations Medication Order MAR Action Action Date Dose Rate Site iohexoL 350 mg iodine/mL solution Given 01/30/2021 2:29 PM OPHTHALMIC AIDE 1 00 mL 1-200 mL (OMNIPAQUE) 1-200 mL, intravenous, Once in imaging, contrast, Starting on Tue01/30/21 at 1355, For 1 dose, Imaging Protocol Orders, Dose per Radiant Medication Guidelines sodium chloride (PF) 0.9 % injection 1-1 00 mL Given 01/30/2021 2:29 PM OPHTHALMIC AIDE 35 mL 1-100 mL, intravenous, Once, On Tue01/30/21 at 1400, For 1 dose, Imaging Protocol Orders documented in this encounter Additional Health Concerns Assessment Noted Time PHQ-9 Depression Total Score: 5 04/05/2019 8:00 AM CDT documented as of this encounter
--- OUTSIDE RECORDS SUMMARY | 2022-08-01 06:47 | XMS_ITS | Encounter Summary ---
:1965 Author Organization [facility] Address [address] [place] [address] Care Team Providers Name Role Phone Unavailable Primary Care Provider Unavailable Reason for Visit Reason Comments Michel Encounter Details Date Type Department Care Team Description 09/04/2020 Clinical Communication Department of Robert Diehl W8B/Scharf Neurology in [place], [place] [address] [place] [address] 200 [place] [phone] Social History Tobacco Use Types Packs/Day Years [...] you attend yazdanism or Patient refused 2021 hindu services? Do [...]
--- OUTSIDE RECORDS SUMMARY | 2022-08-01 06:47 | XMS_ITS | Encounter Summary ---
:1965 Author Organization [facility] Address [address] [place] [address] Care Team Providers Name Role Phone Unavailable Primary Care Provider Unavailable Encounter Details Date Type Department Care Team Description 12/31/2020 Orders Only Department of Robert Diehl Stroke Cereb rovascular Accident Personal History (Primary Dx); Neurology in [place], [place]. Thrombosis Arterial (HCC) [place], [place] 200 [facility] 200 [place] [phone] Social History Tobacco Use Types Packs/Day Years [...] you attend religion or Patient refused 2021 scientology services? Do [...]
--- OUTSIDE RECORDS SUMMARY | 2022-08-01 06:47 | XMS_ITS | Encounter Summary ---
:1965 Author Organization [facility] Address [address] [place] [address] Care Team Providers Name Role Phone Unavailable Primary Care Provider Unavailable Encounter Details Date Type Department Care Team Description 01/20/2021 Clinical Communication Department of Elvira Villalta, Neurology in [place], [place] [address] [place] [address] [address] [place] [phone] Social History Tobacco Use Types Packs/Day Years [...] you attend orthodoxy or Patient refused 2021 denominational services? Do [...]
--- OUTSIDE RECORDS SUMMARY | 2022-08-01 06:47 | XMS_ITS | Encounter Summary ---
:1965 Author Organization [facility] Address [address] [place] [address] Care Team Providers Name Role Phone Unavailable Primary Care Provider Unavailable Encounter Details Date Type Department Care Team Description 02/02/2021 Orders Only Department of Neurology in Bisi Acevedo D.O. [place], [place] 200 [facility] 200 [place] [phone] (Wo rk) Social History Tobacco Use Types [...] you attend rastafari or Patient refused 2021 samaritan services? Do [...]
--- OUTSIDE RECORDS SUMMARY | 2022-08-01 06:47 | XMS_ITS | Encounter Summary ---
:1965 Author Organization [facility] Address [address] [place] [address] Care Team Providers Name Role Phone Unavailable Primary Care Provider Unavailable Encounter Details Date Type Department Care Team Description 09/15/2020 Ancillary Procedure Department of Robert Diehl Aneurysm Radiology jimmy Celaya M.D. Nonruptured (HCC) [place], [place] [address] [facility] [address] [place] [phone] Social History Tobacco Use Types Packs/Day Years [...] you attend restorationism or Patient refused 2021 druze services? Do [...] nt right vertebral artery. RADHA, MCA, and rehabilitation case coordinator are patent. Neck MRA: Conventional three-vessel [...] nt right vertebral artery. RADHA, MCA, and rehabilitation case coordinator are patent. Neck MRA: Conventional three-vessel [...]
--- OUTSIDE RECORDS SUMMARY | 2022-08-01 06:47 | XMS_ITS | Encounter Summary ---
:1965 Author Organization [facility] Address [address] [place] [address] Care Team Providers Name Role Phone Unavailable Primary Care Provider Unavailable Encounter Details Date Type Department Care Team Description 01/16/2021 Anticoagulation Visit Department of Elvira Villalta ([facility]) (Primary Dx); Neurology in [place], [place]. Mcc Anticoagulant Treatment [address] [place] [address] [place], [place] [phone] (Work) [phone] Social History Tobacco Use Types Packs/Day Years [...] you attend religion or Patient refused 2021 orthodoxy services? Do [...] Target INR 2.0-3.[address] Argenis Diehl ([phone]). The patient was scheduled for an INR recheck on 01/19/21 but we received a message that she had it drawn today, 01/16/21, by [facility] Nurse. I spoke with RADHA Roman [facility] and she relays that the home POC INR today is 3.9. I discussed this with Dr. Argenis Diehl ([phone]) who advises that the patient follow a [...] her primary care provider, Dr. Neri Blackwell, [facility], [place], [place]. I have put in a call for Dr. Blackwell's care team to call us back. Will schedule an INR recheck for 01/20/21. I will fax a standing INR order to RADHA Roman, [facility], phone # [phone], fax #[phone]. She will fax results back to us. [...] OF PHONE CALL. Test results, symptom assessment. 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 documented in this encounter Results Prothrombin Time (PT) (01/16/2021 2:10 PM VOCATIONAL TECHNICAL EDUCATION TEACHER) P athologist Signature EXT INR 3.90 OTHER (SPECIFY IN GASOLINE ENGINE INSPECTOR) Specimen (Source) Anatomical Collection Method Collection Time Re ceived Time Location / / Volume Laterality Blood (Blood, 01/16/2021 2:10 PM Venous) VOCATIONAL TECHNICAL EDUCATION TEACHER Resulting Agency Comment [facility] Historical Provider LAB BLOOD ADD-ON Performing Organization Address City/State/ZIP Code Phon e Number OTHER (SPECIFY IN GASOLINE ENGINE INSPECTOR) OTHER (SPECIFY IN GASOLINE ENGINE INSPECTOR) N/A documented in this encounter Visit Diagnoses Diagnosis Stroke (HCC) - Primary Mcc (Current) Anticoagulant Treatm ent documented in this encounter Additional Health Concerns Assessment Noted Time PHQ-9 Depression Total Score: 5 04/05/2019 8:00 AM CDT documented as of this encounter
--- OUTSIDE RECORDS SUMMARY | 2022-08-01 06:47 | XMS_ITS | Encounter Summary ---
:1965 Author Organization [facility] Address [address] [place] [address] Care Team Providers Name Role Phone Unavailable Primary Care Provider Unavailable Reason for Visit Reason Comments Initiate warfarin anticoagulation. Encounter Details Date Type Department Care Team Description 01/01/2021 Clinical Communication Department of Renny Mahoney warfarin Neurology in L, R.N. anticoagulation. [address] [place] [address] [place], [place] [phone] (Work) [phone] Social History Tobacco Use Types Packs/Day Years [...] you attend evangelical or Patient refused 2021 amish services? Do [...] PM CST RADHA Thompson, calls in from [facility] with INR results = 3.9. Please call her back at [phone] QUALITY Telephone Encounter - Renny Mahoney R.N. - 01/05/2021 1:56 PM CST Mackenzie talked to her, she needs to go to the lab today. QUALITY Telephone Encounter - Allyssa Amaya - 01/05/2021 11:14 AM CST Patient calls in regarding this. She is wanting this set up now so a nurse can come into her home and do this. She I believed mentions that a nurse comes into her home now. She would like a call to discuss. QUALITY Telephone Encounter - Robert Diehl M.D. - 01/01/2021 4:46 PM CST Absolutely and thank you very much for coordinating this QUALITY Addendum Note - Renny Mahoney R.N. - 01/01/2021 1:03 PM RN QUALITY Addended by: RENNY MAHONEY on: 01/01/2021 01:03 PM Modules accepted: Orders QUALITY Telephone Encounter - Renny Mahoney R.N. - 01/01/2021 12:45 PM CST I spoke to the patient by telephone today to discuss reinitiating warfarin. The patient referred by Dr. Argenis Diehl ([phone]). The patient's target INR is 2.0-3.0. 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 The anticipated duration of warfarin is machine long goods helper. As per Dr. Diehl, the patient is to be instructed to discontinue the 325 mg aspirin once the target INR is reached. The patient shares that she is well aware of the risks/benefits and process of taking warfarin with regular INR monitoring. She declined the need for additional education by phone regarding anticoagulation. She would like to have her INRs drawn at [facility] with results [facility]. I spoke with her local primary care physician nurse about this as well. Once Dr. Diehl obtains imaging in about 3 months, we may consider transitioning her anticoagulation care to her local [facility]. The patient will take 5 mg warfarin nightly starting tonight 01/01/21, then have an INR drawn 01/05/21 at [facility] with results faxed to us. A prescription for warfarin 5 mg #30, take as directed, may refill X 1 was eprescribed to [facility]. The patient reported an adequate understanding of her plan of care and expressed agreement with thisplan. RECOMMENDED LEVEL OF CARE. The patient/caller is willing and able to follow the nurse's recommendation. RESPONSE TO ADVICE GIVEN. Patient/caller able to teach back. REFERENCES UTILIZED. Nursing clinical judgment utilized. Other interventions or information: Provider advice. TYPE OF PHONE CALL. Medical information, care coordination. . QUALITY Addendum Note - Renny Mahoney R.N. - 01/01/2021 9:43 AM RN QUALITY Addended by: RENNY MAHONEY on: 01/01/2021 09:43 AM Modules accepted: Orders QUALITY Telephone Encounter - Renny Mahoney R.N. - 01/01/2021 9:32 AM CST I have spoken with the pharmacist at [facility] in [place]. He notes that in 2018 when thepatient previously was treated with warfarin, she was taking 5 mg nightly for a period of time. Eventually some nights she was taking 7.5 mg nightly. The pharmacist reviewed potential medication interactions with the patient's current medication list. No serious interactions anticipated. As per Dr. Yeboah ([phone]), we will initiate 5 mg nightly. She will continue aspirin until therapeutic INR is reached. QUALITY Telephone Encounter - Renny Mahoney R.N. - 01/01/2021 8:47 AM CST The patient has been experiencing episodes of vertigo, gait instability, with a fall, she was seen in the ED of [facility] on 12/22/20. Head CT was performed and sent to [facility] for Dr. Diehl's review. He noted [...] the patient's primary care team at the [facility]. I have discussed this with the patient who reports an ad equate understanding and agreement with this plan. RECOMMENDED LEVEL OF CARE. The patient/caller is willing and able to follow the nurse's recommendation. RESPONSE TO ADVICE GIVEN. Patient/caller able to teach back. REFERENCES UTILIZED. Nursing clinical judgment utilized. Other interventions or information: Provider advice. TYPE OF PHONE CALL. Care coordination. QUALITY Telephone Encounter - Renny Mahoney R.N. - 01/01/2021 8:46 AM CST ----- Message from Robert Diehl M.D. sent at 12/31/2020 5:17 PM RN QUALITY ----- I called and discussed the results [...] by: Robert Diehl M.D. 12/31/20 5:16 PM RN QUALITY Stroke Cerebrovascular Accident Personal History Plan: CT Head without IV Contrast, CT Head without IV Contrast Ataxia Plan: CT Head Neck Angiogram with IV Contrast, CT Head Neck Angiogram with IV Contrast QUALITY documented in this encounter Plan of Treatment Scheduled Orders Name Type Priority Associated Diagnoses Order S chedule Prothrombin Time (PT) Lab Routine Halfway Anticoagu lant 50 Occurrences starting Treatment 01/01/2021 unti l 01/01/2024 documented as of this encounter Visit Diagnoses Diagnosis Office System Analyst (Current) Anticoagulant Treatm ent - Primary documented in this encounter Additional Health Concerns Assessment Noted Time PHQ-9 Depression Total Score: 5 04/05/2019 8:00 AM CDT documented as of this encounter
--- OUTSIDE RECORDS SUMMARY | 2022-08-01 06:47 | XMS_ITS | Encounter Summary ---
:1965 Author Organization [facility] Address [address] [place] [id number] Care Team Providers Name Role Phone Unavailable Primary Care Provider Unavailable Reason for Referral Outpatient (Routine) - Closed Specialty Diagnoses / Procedures Referred By Contact Refer red To Contact Home Health Care Diagnoses Stroke (HCC) Chronic Pain Syndrome Stroke Cerebrovascular Accident Personal History Ric Quinn M.D., M.S. [address] [place] [phone] Referral ID Status Reason Start Date Expiration Date Visits Requ ested Visits Authorized [id number] Closed 02/03/2021 02/03/2022 1 1 NITIES DEPARTMENT CHAIR Encounter Details Date Type Department Care Team Description 01/31/2021 - Hospital Encounter [facility] Blanca, Stroke (H CC) (Primary Dx); [facility]; [facility], [address] [place] [address] Stroke Cerebrovascular Accident Personal History [facility] [place] [id number] floor [phone] [place] [address] (Work) [place], [place] [phone] (Fax) [phone] Social History Tobacco Use Types Packs/Day Years [...] Comments Blood Pressure 133/71 02/03/2021 5:15 PM HUMANITIES DEPARTMENT CHAIR Pulse 92 02/03/2021 5:15 PM HUMANITIES DEPARTMENT CHAIR Temperature 36.5 ??C (97.7 ??F) 02/03/2021 5:15 PM HUMANITIES DEPARTMENT CHAIR Respiratory Rate 17 02/03/2021 5:15 PM HUMANITIES DEPARTMENT CHAIR Oxygen Saturation 97% 02/03/2021 5:15 PM HUMANITIES DEPARTMENT CHAIR Inhaled Oxygen Concentration - - Weight 78.8 kg (173 lb 11.6 oz) 01/31/2021 9:39 PM HUMANITIES DEPARTMENT CHAIR Height 152.4 cm (5') 01/31/2021 9:39 PM HUMANITIES DEPARTMENT CHAIR Body Mass Index 33.93 01/31/2021 9:39 PM HUMANITIES DEPARTMENT CHAIR documented in this encounter Discharge Summaries Malcom Torres M.D. - 02/03/2021 2:24 PM CST DISCHARGE SUMMARY BRIEF OVERVIEW Hospital: [facility] Discharge Provider: Nan Rios M.D. Primary Team: [facility] Neurology Stroke and Cerebrovascular Disease No [...] artery dissection. Shewas subsequently admitted directly to [facility] Neurology Stroke service for further workup and [...] ??C, temperature source Oral, resp. rate 17, roqtyc598.4 cm, weight 78.8 kg, SpO2 94 %. [...] were provided to the patient and caregiver(s). NITIES DEPARTMENT CHAIR documented in this encounter Discharge Instructions Discharge InstructionsLaquita Rainse - 02/02/2021 7:23 AM CST You were discharge from the Neurology Stroke Service. Please Identify this service name if you call with questions after your hospitalization. NITIES DEPARTMENT CHAIR Discharge Instr - ActivityLeonides Liang P.T. - 02/02/2021 1:13 PM HUMANITIES DEPARTMENT CHAIR Physical Therapy Discharge Summary MOBILITY RESTRICTIONS/PRECAUTIONS: Fall [...] 02/02/2021 by Leonides Liang P.T. Contact information: [employer], [address], NITIES DEPARTMENT CHAIR AttachmentsThe following attachments cannot be sent through Care Everywhere. Apixaban (By mouth) (Tanzanian)Nicotine (Absorbed through the skin) (Tanzanian) Nicotine (By breathing) (Tanzanian)Nicotine (Into the nose) (Tanzanian)documented in this encounter Medications at Time of [...] mg tablet total) by mouth at bedtime. cholecalciferol (VITAMIN Take 125 mcg by mouth 0 06/25/2022 D3) 125 mcg (5,000 Unit) every morning. tablet cyanocobalamin, vitamin Place 2,500 mcg under 3 0 02/08/2019 02/26/2022 B-12, 2,500 mcg tablet, the tongue every sublingual morning. diazePAM (VALIUM) 10 mg Take 10 mg by mouth 2 0 0 02/14/2019 06/17/2022 tablet (two) times a day as needed. diphenhydrAMINE Take 25-50 mg by 0 (BENADRYL) 25 mg tablet mouth every 6 (six) hours as needed for itching. esomeprazole (NexIUM) 40 Take 40 mg by mouth 0 06/17/[address] capsule every morning before breakfast. Flovent HFA 110 Inhale 2 puffs 2 0 01/19/202111/2021 mcg/actuation inhaler (two) times a day. furosemide (LASIX) 40 mg Take 40 mg by mouth 2 0 02/08/2019 06/17/2022 tablet (two) times a day. Per patient usually takes daily nicotine (Nicoderm CQ) Apply 21 mg patch [...] Per patient report, she was able to assisted living coordinator the shower last evening and using grab [...] min Total Treatment Time (min): 16 min MILA Cardoza NITIES DEPARTMENT CHAIR Helen Greer P.T. - 02/03/2021 1:57 PM CST No PT intervention today as patient was at an MRI this morning, now stating that she has just gone for a walk and plans are for dc to home with intermittent assist from her son. Helen Greer, PT NITIES DEPARTMENT CHAIR Catalina Panchal, R.N. - 02/03/2021 1:49 PM CST Patient discussed at Stroke Multidisciplinary Rounds. Plan for the day: Case Management Following, PT/OT, Medication Management, MRI/MRA Plan for the Stay: Stroke w/u Discharge barriers: Inpatient Needs Recommended discharge disposition: [facility] w/[facility] NITIES DEPARTMENT CHAIR Nan Rios M.D. - 02/03/2021 10:36 AM CST SUBJECTIVE [...] pain syndrome, fibromyalgia, and nicotine use disorder. NITIES DEPARTMENT CHAIR Leonides Kumar M.D. - 02/03/2021 7:09 AM [...] status: Prior Disposition: Home Plan discussed with [facility] Neurology Stroke and Cerebrovascular Disease Motor Bus Driver, Dr. Rios. Please page the [facility] Neurology Stroke and Cerebrovascular Disease service pager at [phone] with any questions. Leonides Kumar M.D. NITIES DEPARTMENT CHAIR Makenzie Figueredo O.T.Katarina - 02/02/2021 3:24 PM CST Occupational Therapy [...] home to ensure her safety. From the Exceptional Student Education Teacher's perspective, the patient is not an inpatient [...] Treatment Time (min): 32 min MILA Cardoza NITIES DEPARTMENT CHAIR Catalina Panchal RBetsy - 02/02/2021 2:31 PM CST Patient discussed at Stroke Multidisciplinary Rounds. Plan for the day: MRI, Case Management Consult, PT/OT, Medication Management Plan for the Stay: Stroke w/u Discharge barriers: Inpatient Needs Recommended discharge disposition: [facility] w/C NITIES DEPARTMENT CHAIR Leonides Liang P.T. - 02/02/2021 12:58 PM [...] Time (min): 32 min Leonides Liang P.T. NITIES DEPARTMENT CHAIR Nan Rios M.D. - 02/02/2021 10:27 AM [...] pain syndrome, fibromyalgia, and nicotine use disorder. NITIES DEPARTMENT CHAIR Jessie Rock Pharm.D., R.Ph. - 02/02/2021 10:21 AM CST Images from the original note were not included. Admission Medication History Note Adherence issues: Unable to assess Medication list source: Pharmacy or dispense records. Medication list provided by [facility] in [place]. Most recent dispensing information obtained. Multiple changes made to the list. Medication list reconciled against information in Care Everywhere. Prior to Admission Medications Med List Status: Pharmacy/RN Complete Set By: Jessie Rock Pharm.D., R.Ph. at 02/02/2021 10:20 AM Taking? Informant [...] by mouth 2 (two) times a day. NITIES DEPARTMENT CHAIR Leonides Kumar M.D. - 02/02/2021 6:55 AM [...] status: Prior Disposition: Home Plan discussed with [facility] Neurology Stroke and Cerebrovascular Disease Motor Bus Driver, Dr. Rios. Please page the [facility] Neurology Stroke and Cerebrovascular Disease service pager at [phone] with any questions. Leonides Kumar M.D. NITIES DEPARTMENT CHAIR Leonides Kumar M.D. - 02/01/2021 6:36 AM [...] status: Prior Disposition: Home Plan discussed with [facility] Neurology Stroke and Cerebrovascular Disease Motor Bus Driver, Dr. Rios. Please page the [facility] Neurology Stroke and Cerebrovascular Disease service pager at [phone] with any questions. Leonides Kumar M.D. NITIES DEPARTMENT CHAIR documented in this encounter H&P Notes Nan [...] segment. ?? The patient presented to the [place] ED with acute onset vertigo which occurred yesterday afternoon while she was at [facility]. She bent forward and complained of neck pain which radiated to the top of her head. She also complained of warmth all over her body and generalised weakness. ?? With effort, she was able to ambulate back to her car with her groceries, where she met her son, whothen took her to the [place] ED. There, the patient had a head CT the chronic left cerebellar infarct. There was also concern for a new infarct in the right thalamus. INR was 1.35. She was transferred to [facility] for further evaluation. ?? Today, she feels [...] pain syndrome, fibromyalgia, and nicotine use disorder. NITIES DEPARTMENT CHAIR Marbella Cutler M.D. - 02/01/2021 2:55 AM [...] V4 segment. The patient presented to the [place] ED with acute onset vertigo which occurred yesterday afternoon while she was at [facility]. She bent forward and complained of neck pain which radiated to the top of her head. She also complained of warmth all over her body and generalised weakness. With effort, she was able to ambulate back to her car with her groceries, where she met her son, whothen took her to the [place] [facility] ED. There, the patient had a head CT the chronic left cerebellar infarct. INR was 1.35. She was transferred to [facility] for further evaluation. On the floor, she was hemodynamically stable but complained of ongoing vertigo, with difficulty keeping her eyes open. Social history: she is currently unemployed but previously worked at a [employer] and [employer]. She is fully independent of her ADLs [...] Rehabilitation consult - Bedside dysphagia evaluation - passed Harris - DVT prophylaxis with heparin SC - Code status per admitting resident. Please page the Stroke service [phone] with questions/concerns. NITIES DEPARTMENT CHAIR Gerald England M.D. - 01/31/2021 9:16 PM CST Cerebrovascular Neurology Admission Note SUBJECTIVE CHIEF COMPLAINT Headache, nausea, vertigo HISTORY OF PRESENT ILLNESS: Ms.??Anige Bender??is a 55 y.o.??female??with PMH including gastric [...] artery dissection. Shewas subsequently admitted directly to [facility] Neurology Stroke service for further workup and [...] COMPUTER NAVIGATION.; Surgeon: Darlin Olmedo M.D.; Location: [facility] ROMB OR ??? HYSTERECTOMY ??? 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 Patent anterior and right posterior communicating arteries. [...] page the Cerebrovascular Neurology Service pager at [phone] with any questions or concerns. [facility] Stroke Neurology Service Order Planner: Nan England M.D. STROKE DOCUMENTATION: Stroke Center [...] to hemorrhage and/or hemorrhagic risk Prestroke modified Brunswick Score (mRS): 1 - No significant disability. [...] 30 or greater) and hormonal contraceptive use NITIES DEPARTMENT CHAIR documented in this encounter Consult Notes Pamela Middleton M.S., L.Sapna.NeriC., C.T.T.S. - 02/03/2021 10:08 AM CSTAssociated Order(s): IP CONSULT TO INTERNAL MEDICINE NICOTINE DEPENDENCE; IP CONSULT TO INTERNAL MEDICINE NICOTINE DEPENDENCE SUBJECTIVE Consults REASON FOR CONSULT Admitting Service: Neurology Reason for Consult: Tobacco Use Disorder HISTORY OF PRESENT ILLNESS Angie Bender is a 55 y.o. female who was seen at [facility] and is being evaluated for tobacco use [...] provided the patient with educational materials and [facility] contact information. Patient is unable to schedule [...] Middleton M.S., Delvin, C.T.T.S. 02/03/2021 10:08 AM HUMANITIES DEPARTMENT CHAIR NITIES DEPARTMENT CHAIR Catalina Panchal, RBrittonNBritton - 02/02/2021 2:11 PM CSTAssociated Order(s): IP CONSULT TO CARE MANAGEMENT Discharge Planning Assessment SUBJECTIVE Referral Data Referral Source: Early Screen for Discharge Planning Referral Reason: Discharge Planning Discharge Planning: Home health Who was present during the interview?: Patient Home Health Occupational Therapist Services Used: No Patient Information Primary Caregiver: [...] Behavior: Oriented Communication: Talks, Understands speaking, Understands Tanzanian Environmental Supports Home Environment: House Anticipated Needs/Assistive [...] Nurse visit Home Care Agency Name : [facility] Anticipated Discharge Destination: Home-Health Care [facility] Recommended Discharge Services: Nursing Does the patient need discharge transport arranged?: No ASSESSMENT / PLAN Plan Assessment: The social services director met with Angie Bender to discuss her current hospitalization and home goingneeds. The patient was unaccompanied. The patient was a reliable historian, but was lacking completedetails at times. The role of social services director was reviewed. The patient reviewed her prior level of care and support system. The patient receives support from her son. The patient described her living environment as a single level home with level entry. Housekeeping, grocery shopping, meal prep, and other household responsibilities have previously been completed by patient. social services director discussed the patient's potential needs at dismissal based on their home setti ng, previous needs and responsibilities, homebound status, and relevant assessments with the patient. The patient will be safe and supported to return home with [facility] or previous services noted above when [...] dismissal will be provided by family--son. 3. social services director recommended nothing at this time. 4. social services director provided information regarding the dismissal process. 5. social services director placed or requested the following hospital-based consult orders and/or referrals:None. 6. social services director will continue to assess for homegoing needs with the interdisciplinary team. 7. social services director encouraged the patient to reach out with any questions/concerns. Care Management will continue to follow. Patient to discharge with home health care. [facility] - Admitted Since 01/31/2021 The patient receives long-term visits 1-2x week. She has qualified for ASSISTANT PROFESSOR OF DRAMA, homemaking, and home health aide visits, but [...] assist if needs arise. Signed by: Hailey Pacnhal R.N. 02/02/2021 Radha Sanderson PStacy. - 02/01/2021 4:51 PM CST Physical Therapy [...] With: Alone Receives Help From: Family, Friend(s), parking lot attendant and cashier ADL Assistance: Independent IADL/Homemaking Assistance: Required assistance IADL/Homemaking Assistance Comments: Has assistance with meals on wheels, cleaning, and medication management Occupational Role: On disability Prior Mobility/Functional Transfers Level of [place]: Independent Previous Transfer/Mobility Assistance Comments: Patient reports [...] Time (min): 25 min Radha Samuel P.T. NITIES DEPARTMENT CHAIR Rosario Lopez O.Jolanta. - 02/01/2021 3:17 PM CST Occupational Therapy [...] With: Alone Receives Help From: Family, Friend(s), parking lot attendant and cashier ADL Assistance: Independent IADL/Homemaking Assistance: Required assistance IADL/Homemaking Assistance Comments: Has assistance with meals on wheels, cleaning, and medication management Driving: Independent Occupational Role: On disability Occupational Role Comments: Previously worked at a [employer] and [employer] Prior Mobility/Functional Transfers Level of [place]: Independent Home Living Type of Home: Apartment [...] Time (min): 60 min Rosario Lopez O.T. NITIES DEPARTMENT CHAIR Maria M Duque M.D. - 02/01/2021 7:21 AM CSTAssociated Order(s): IP CONSULT TO PHYSICAL MEDICINE & REHABILITATION Consult received for Physical Medicine and Rehabilitation Consult Service. I reviewed the electronic health record. I have triaged to therapy only; no buzzsaw operator consult appears to be necessary at this time. If therapists or referring service feel that a buzzsaw operator review is necessary, please send a new consult request with only the Physician consult - Physical Medicine and Rehabilitation consult (hospital) item selected. NITIES DEPARTMENT CHAIR documented in this encounter Nursing Notes Sofie [...] by: Sofie Sutton R.N. 02/03/21 5:24 PM HUMANITIES DEPARTMENT CHAIR NITIES DEPARTMENT CHAIR Sofie Sutton R.N. - 02/03/2021 5:20 PM [...] by: Sofie Sutton R.N. 02/03/21 5:22 PM HUMANITIES DEPARTMENT CHAIR NITIES DEPARTMENT CHAIR Marlene Grover R.N. - 02/03/2021 5:14 AM [...] Goal: Patient discharge needs identified Outcome: Progressing NITIES DEPARTMENT CHAIR Mague Rudolph R.N. - 02/02/2021 5:03 AM CST Shift Goals: Clinical Goals for the Shift: patient will use call light appropriately Identify possible barriers to meeting goals/advancing plan of care: End of Shift Summary: patient met goal NITIES DEPARTMENT CHAIR Valarie Grayson R.N. - 02/01/2021 5:59 PM CST Shift Goals: Clinical Goals for the Shift: Patient will tolerate MRI Identify possible barriers to meeting goals/advancing plan of care: Patient's medical technicians End of Shift Summary: Goal not met. MRI scheduled for Tuesday related to device monitoring. Electronically signed by: Valarie Grayson R.N. 02/01/21 5:59 PM HUMANITIES DEPARTMENT CHAIR Problem: SKIN/TISSUE INTEGRITY Goal: Skin/Tissue integrity maintained or improved Outcome: Progressing Problem: SAFETY ADULT Goal: Maintain a safe environment Outcome: Progressing Problem: SAFETY ADULT - RISK FOR FALL AND OR FALL INJURY Goal: Patient remains free from fall/fall injury Outcome: Progressing NITIES DEPARTMENT CHAIR documented in this encounter Miscellaneous Notes Hospital Course - Bisi Vieyra M.D. - 02/02/2021 12:50 PM CST Ms.??Angie Bender??is a 55 y.o.??female??with past medical history including [...] artery dissection. Shewas subsequently admitted directly to [facility] Neurology Stroke service for further workup and [...] after a CTA head/neck in 3 months. NITIES DEPARTMENT CHAIR documented in this encounter Plan of Treatment Scheduled Referrals Name Type Priority Associated Diagnoses [facility] Outpatient Referral Routine Stroke (HCC) Ordered: Health Referral Chronic Pain Syn drome 02/03/2021 Stroke Cerebrovascular Accident Personal History documented as of this encounter Procedures Procedure Name Priority Date/Time Associated Comments Diagnosis MR NECK ANGIOGRAM RAD - Routine 02/03/2021 Results f or WITHOUT AND WITH IV (most inpatients 12:39 PM HUMANITIES DEPARTMENT CHAIR this procedure CONTRAST and all are in the outpatients) results section. MR BRAIN WITHOUT AND RAD - Routine 02/03/2021 Result s for WITH IV CONTRAST (most inpatients 12:34 PM HUMANITIES DEPARTMENT CHAIR this pr ocedure and all are in the outpatients) results section. DX ABDOMEN SUPINE WITH RAD - Routine 02/02/2021 3:26 R esults for UPRIGHT OR DECUBITUS 2 (most inpatients PM HUMANITIES DEPARTMENT CHAIR t his procedure VIEWS and all are in the outpatients) results section. PROTHROMBIN TIME (PT), Routine 02/02/2021 5:20 Re sults for P AM HUMANITIES DEPARTMENT CHAIR this procedure are in the results section. LIPID PANEL, S Routine 02/01/2021 5:21 Results fo r AM HUMANITIES DEPARTMENT CHAIR this procedure are in the results section. RENAL FUNCTION PANEL, S Routine 02/01/2021 5:21 R esults for AM HUMANITIES DEPARTMENT CHAIR this procedure are in the results section. FOLATE, S Routine 02/01/2021 5:21 Results for AM HUMANITIES DEPARTMENT CHAIR this procedure are in the results section. VITAMIN B12 ASSAY, S Routine 02/01/2021 5:21 Resu lts for AM HUMANITIES DEPARTMENT CHAIR this procedure are in the results section. ECG Routine 01/31/2021 Results for 11:35 PM HUMANITIES DEPARTMENT CHAIR this procedure are in the results section. SARS CORONAVIRUS 2, Routine 01/31/2021 Results for RNA, RAPID POC, V 10:32 PM HUMANITIES DEPARTMENT CHAIR this proce dure are in the results section. ELECTROLYTE (CHEM 4) Routine 01/31/2021 9:44 Resu lts for PANEL, S/P PM HUMANITIES DEPARTMENT CHAIR this procedure are in the results section. ACTIVATED PARTIAL Routine 01/31/2021 9:44 Results for THROMBOPLASTIN TIME PM HUMANITIES DEPARTMENT CHAIR this pro cedure (APTT), P are in the results section. PROTHROMBIN TIME (PT), Routine 01/31/2021 9:44 Re sults for P PM HUMANITIES DEPARTMENT CHAIR this procedure are in the results section. CBC WITH DIFFERENTIAL, Routine 01/31/2021 9:44 Re sults for B PM HUMANITIES DEPARTMENT CHAIR this procedure are in the results section. ALANINE Routine 01/31/2021 9:44 Results for AMINOTRANSFERASE (ALT), PM HUMANITIES DEPARTMENT CHAIR this procedure S/P are in the results section. ASPARTATE Routine 01/31/2021 9:44 Results for AMINOTRANSFERASE (AST), PM HUMANITIES DEPARTMENT CHAIR this procedure S/P are in the results section. THYROID-STIMULATING Routine 01/31/2021 9:44 Resul ts for HORMONE-SENSITIVE PM HUMANITIES DEPARTMENT CHAIR this proce dure (S-TSH) are in the results section. HEMOGLOBIN A1C, B Routine 01/31/2021 9:44 Results for PM HUMANITIES DEPARTMENT CHAIR this procedure are in the results section. documented in this encounter Results MR Neck Angiogram without and with IV Contrast (02/03/2021 12:39 PM HUMANITIES DEPARTMENT CHAIR) Anatomical Region Laterality Modality Neck, Neuroradiology RST LOS, Neuroradiology ARZ [facility] N/A Magnetic Resonance Neuroradiology FLA [facility] Specimen (Source) Anatomical Collection Method Collection Time Re ceived Time Location / / Volume Laterality 02/03/2021 11:37 AM HUMANITIES DEPARTMENT CHAIR Impressions 02/03/2021 1:26 PM HUMANITIES DEPARTMENT CHAIR 1. Infarctions in the posterior circulation of [...] technica l limitations. Narrative 02/03/2021 1:26 PM HUMANITIES DEPARTMENT CHAIR EXAM: MR BRAIN WITHOUT AND WITH IV [...] and with IV Contrast (02/03/2021 12:34 PM HUMANITIES DEPARTMENT CHAIR) Anatomical Region Laterality Modality Head, Brain, Neuroradiology RST LOS, Neuroradiology ADILIA N/A Magnetic Resonance LOS, Neuroradiology FLA [facility] Specimen (Source) Anatomical Collection Method Collection Time Re ceived Time Location / / Volume Laterality 02/03/2021 11:37 AM HUMANITIES DEPARTMENT CHAIR Impressions 02/03/2021 1:26 PM HUMANITIES DEPARTMENT CHAIR 1. Infarctions in the posterior circulation of [...] technica l limitations. Narrative 02/03/2021 1:26 PM HUMANITIES DEPARTMENT CHAIR EXAM: MR BRAIN WITHOUT AND WITH IV [...] or Decubitus 2 Views (02/02/2021 3:26 PM HUMANITIES DEPARTMENT CHAIR) Anatomical Region Laterality Modality Abdomen, Abdominal RST LOS, Abdominal ARZ LOS, Right Digital Radiography Abdominal FLA LOS Specimen (Source) Anatomical Collection Method Collection Time Re ceived Time Location / / Volume Laterality 02/02/2021 3:49 PM HUMANITIES DEPARTMENT CHAIR Impressions 02/02/2021 3:50 PM HUMANITIES DEPARTMENT CHAIR Spinal stimulator device with tip over the T7-8 interspace. Generator pack posterior to the left janett ac crest. Postoperative changes ventral hernia repair. Surgical marylin near the GE junction. Cholecystectomy. Lung bases are clear. Narrative 02/02/2021 3:50 PM HUMANITIES DEPARTMENT CHAIR EXAM: ??DX ABDOMEN SUPINE WITH UPRIGHT OR [...] crest. Postoperative changes ventral hernia repair. Surgical amrylin near the GE junction. Cholecystectomy. Lung bases are clear. Leonides Kumar M.D. IMG DIAGNOSTIC IMAGING PROCE DURES (ABNORMAL) Prothrombin Time (PT) (02/02/2021 5:20 AM HUMANITIES DEPARTMENT CHAIR) [facility] Method Time Signature Prothrombin 16.2 (H) 9.4 - 12.5 02/02/2021 DTL Time, P sec 6:12 AM HUMANITIES DEPARTMENT CHAIR INR 1.5 0.9 - 1.1 02/02/2021 DTL 6:12 AM HUMANITIES DEPARTMENT CHAIR Comment: ----ADDITIONAL INFORMATION---- Standard intensity warfarin therapeutic range: 2.0 to 3.0 ?? High intensity warfarin therapeutic rang e: 2.5 to 3.5 Specimen Anatomical Collection Method Collection Time Receive d Time (Source) Location / / Volume Laterality Blood (Blood, 02/02/2021 5:20 AM 02/03/20 5:48 Venous) HUMANITIES DEPARTMENT CHAIR AM HUMANITIES DEPARTMENT CHAIR Leonides Kumar M.D. LAB BLOOD ADD-ON Performing Organization Address City/State/ZIP Code Phon e Number [facility] - [address] [place], [place] [address] [facility] [place] [place] [address] [facility] 200 [facility] Renal Function Panel (02/01/2021 5:21 AM HUMANITIES DEPARTMENT CHAIR) athologist Signature Potassium, S 4.3 3.6 - 5.2 02/01/2021 DTL mmol/L 6:26 AM HUMANITIES DEPARTMENT CHAIR Sodium, S 139 135 - 145 02/01/2021 DTL mmol/L 6:26 AM HUMANITIES DEPARTMENT CHAIR Chloride, S 106 98 - 107 02/01/2021 DTL mmol/L 6:26 AM HUMANITIES DEPARTMENT CHAIR Bicarbonate, S 25 22 - 29 02/01/2021 DTL mmol/L 6:26 AM HUMANITIES DEPARTMENT CHAIR Anion Gap 8 7 - 15 02/01/2021 DTL 6:26 AM HUMANITIES DEPARTMENT CHAIR BUN (Blood Urea 14 6 - 21 02/01/2021 DTL Nitrogen), S mg/dL 6:26 AM HUMANITIES DEPARTMENT CHAIR Creatinine 0.74 0.59 - 02/01/2021 DTL 1.04 mg/dL 6:26 AM HUMANITIES DEPARTMENT CHAIR eGFR-Non >90 >=60 02/01/2021 DTL Black/ mL/min/BSA 6:26 AM HUMANITIES DEPARTMENT CHAIR [place] Comment: ----ADDITIONAL INFORMATION---- Estimated GFR calculated using the 2009 CKD_EPI creatinine equation. eGFR-Black/ >90 >=60 mL/min/BSA 2020 6:26 AM HUMANITIES DEPARTMENT CHAIR DTL Comment: ----ADDITIONAL INFORMATION---- Estimated GFR calculated using the 2009 CKD_EPI creatinine equation. Calcium, Total, S 9.2 8.6 - 10.0 mg/dL 02/01/2021 6:26 AM HUMANITIES DEPARTMENT CHAIR DTL Glucose, S 96 70 - 140 mg/dL 02/01/2021 6:26 AM HUMANITIES DEPARTMENT CHAIR D TL Albumin, S 3.6 3.5 - 5.0 g/dL 02/01/2021 6:26 AM HUMANITIES DEPARTMENT CHAIR D TL Phosphorus (Inorganic), S 4.0 2.5 - 4.5 mg/dL 02/02/20 6:26 AM HUMANITIES DEPARTMENT CHAIR DTL Specimen Anatomical Collection Method Collection Time Receive d Time (Source) Location / / Volume Laterality Blood (Blood, 02/01/2021 5:21 AM 02/02/20 5:52 Venous) HUMANITIES DEPARTMENT CHAIR AM HUMANITIES DEPARTMENT CHAIR Gerald England M.D. LAB BLOOD ADD-ON Performing Organization Address City/[facility] Phon e Number [facility] - [address] [place] [address] [address] (ABNORMAL) Vitamin B12 Assay (02/01/2021 5:21 AM HUMANITIES DEPARTMENT CHAIR) Analysis Performed At Patho logist Time Signature Vitamin B12 >1400 (H) 180 - 914 02/02/2021 DTL Assay, S ng/L 7:10 AM HUMANITIES DEPARTMENT CHAIR Comment: ----ADDITIONAL INFORMATION---- In patients being evaluated [...] (Blood, 02/01/2021 5:21 AM 02/02/20 5:52 Venous) HUMANITIES DEPARTMENT CHAIR AM HUMANITIES DEPARTMENT CHAIR Gerald England M.D. LAB BLOOD ADD-ON Performing Organization Address City/[facility] Phon e Number [facility] - [address] [place], [place] [address] [place] [id number] [address] Folate (02/01/2021 5:21 AM HUMANITIES DEPARTMENT CHAIR) P athologist Signature Folate, S 17.9 >=4.0 mcg/L 02/02/2021 7:09 DTL AM HUMANITIES DEPARTMENT CHAIR Specimen Anatomical Collection Method Collection Time Receive d Time (Source) Location / / Volume Laterality Blood (Blood, 02/01/2021 5:21 AM 02/02/20 5:52 Venous) HUMANITIES DEPARTMENT CHAIR AM HUMANITIES DEPARTMENT CHAIR Gerald England M.D. LAB BLOOD ADD-ON Performing Organization Address City/[facility] Phon e Number [facility] - [address] [place], [place] [address] [facility] [place] [address] [facility] [address] [facility] Lipid Panel (02/01/2021 5:21 AM HUMANITIES DEPARTMENT CHAIR) athologist Signature Cholesterol, 157 mg/dL 02/01/2021 DTL Total 6:27 AM HUMANITIES DEPARTMENT CHAIR Comment: ----REFERENCE VALUE---- Desirable: < 200 Borderline high: 200 - 239 High: > or = 240 Triglycerides 107 mg/dL 02/01/2021 6:27 AM HUMANITIES DEPARTMENT CHAIR DTL Comment: ----REFERENCE VALUE---- Normal: <150 Borderline high: 150-199 High: 200-499 Very high: > or =500 Cholesterol, HDL, S 88 >=50 mg/dL 02/01/2021 6:27 AM HUMANITIES DEPARTMENT CHAIR DTL Calculated LDL 48 mg/dL 02/01/2021 6:27 AM HUMANITIES DEPARTMENT CHAIR DT L Comment: ----REFERENCE VALUE---- Desirable: <100 Above Desirable: 100-129 Borderline high: 130-159 High: 160-189 Very high: > or =190 Cholesterol, Non-HDL, Calculated 69 mg/dL 6:27 AM HUMANITIES DEPARTMENT CHAIR DTL Comment: ----REFERENCE VALUE---- Desirable: <130 Above Desirable: 130-159 Borderline high: 160-189 High: 190-219 Very high: > or =220 Specimen Anatomical Collection Method Collection Time Receive d Time (Source) Location / / Volume Laterality Blood (Blood, 02/01/2021 5:21 AM 02/02/20 5:52 Venous) HUMANITIES DEPARTMENT CHAIR AM HUMANITIES DEPARTMENT CHAIR Gerald England M.D. LAB BLOOD ADD-ON Performing Organization Address City/[facility] Phon e Number [facility] - [address] [place], [place] [address] [facility] [place] [address] [facility] [address] SW ECG 12 Lead (01/31/2021 11:35 PM HUMANITIES DEPARTMENT CHAIR) P athologist Signature Ventricular Rate 60 BPM MUSE ECG/Min NE Interval 170 ms MUSE QRSD Interval 88 ms MUSE QT Interval 434 ms MUSE QTC Interval 434 ms MUSE P [place] 31 degrees MUSE R [place] -16 degrees MUSE T Wave [place] 3 degrees MUSE Specimen Anatomical Collection Method Collection Time Receive d Time (Source) Location / / Volume Laterality 01/31/2021 11:35 02/01/2021 6:10 PM HUMANITIES DEPARTMENT CHAIR AM HUMANITIES DEPARTMENT CHAIR Impressions MUSE - 02/01/2021 6:10 AM HUMANITIES DEPARTMENT CHAIR Normal sinus rhythm Minimal voltage criteria for [...] Rapid POC, V Asymptomatic (01/31/2021 10:32 PM HUMANITIES DEPARTMENT CHAIR) [facility] gist Method Time Signature SARS Undetected Undetected 01/31/2021 DTLR Coronavirus-2 10:52 PM HUMANITIES DEPARTMENT CHAIR , RNA, Rapid POC, V Comment: Negative for SARS-CoV-2. The Cue COVID-19 test is a molecular shahzad t for SARS-CoV-2, the virus that causes COVID- 19. A Negative result means that the [employer] COV ID-19 test did not detect SARS-CoV-2 virus in your sample. Cue COVID-19 test uses the [employer] nitSnehta System. This test has received Emergency Use Authorization (EUA) by the U.S. Food and Drug Administration (FDA) and is used per man ufacturer instructions. Performance characteristic s were verified by [facility] in a manner consistent with CLIA requirements. Fact sheets for this Emerg ency Use Authorization (EUA) can be found at the following links: Providers: [email or web address] Patients: [email or web address].pdf SARS Coronavirus 2, Source Nasopharynx DEFAULT 01/31/2021 10:52 PM HUMANITIES DEPARTMENT CHAIR DTLR Specimen Anatomical Collection Method Collection Time Receive d Time (Source) Location / / Volume Laterality Varies 01/31/2021 10:32 01/31/2021 (Nasopharynx) PM HUMANITIES DEPARTMENT CHAIR 10:32 PM HUMANITIES DEPARTMENT CHAIR Nan Rios M.D. LAB MICROBIOLOGY - GENERAL O RDERABLES Performing Organization Address City/State/ZIP Code Phon e Number PERFORMING LABS, [place] [address] INTERFACE Ref Interface 200 [facility] DT Performing Labs, [place] [address] Interface 200 [facility] Electrolyte (Chem 4) Panel (01/31/2021 9:44 PM HUMANITIES DEPARTMENT CHAIR) P athologist Signature Potassium, P 4.0 3.6 - 5.2 01/31/2021 STMA mmol/L 10:06 PM HUMANITIES DEPARTMENT CHAIR Sodium, P 137 135 - 145 01/31/2021 STMA mmol/L 10:06 PM HUMANITIES DEPARTMENT CHAIR Chloride, P 104 98 - 107 01/31/2021 STMA mmol/L 10:06 PM HUMANITIES DEPARTMENT CHAIR Bicarbonate, P 24 22 - 29 01/31/2021 STMA mmol/L 10:06 PM HUMANITIES DEPARTMENT CHAIR Anion Gap, P 9 7 - 15 01/31/2021 STMA 10:06 PM HUMANITIES DEPARTMENT CHAIR Specimen Anatomical Collection Method Collection Time Receive d Time (Source) Location / / Volume Laterality Blood (Blood, 01/31/2021 9:44 PM 02/01/20 21 9:56 Venous) HUMANITIES DEPARTMENT CHAIR PM HUMANITIES DEPARTMENT CHAIR Gerald England M.D. LAB BLOOD ADD-ON Performing Organization Address City/[facility] Phon e Number [facility] - [address] [place], [place] [address] [facility] [place] [address] [facility] [address] (ABNORMAL) Prothrombin Time (PT) (01/31/2021 9:44 PM HUMANITIES DEPARTMENT CHAIR) [facility] Method Time Signature Prothrombin 15.5 (H) 9.4 - 12.5 01/31/2021 DTL Time, P sec 10:27 PM HUMANITIES DEPARTMENT CHAIR INR 1.4 0.9 - 1.1 01/31/2021 DTL 10:27 PM HUMANITIES DEPARTMENT CHAIR Comment: ----ADDITIONAL INFORMATION---- Standard intensity warfarin therapeutic range: 2.0 to 3.0 ?? High intensity warfarin therapeutic rang e: 2.5 to 3.5 Specimen Anatomical Collection Method Collection Time Receive d Time (Source) Location / / Volume Laterality Blood (Blood, 01/31/2021 9:44 PM 02/01/20 Venous) HUMANITIES DEPARTMENT CHAIR 10:06 PM HUMANITIES DEPARTMENT CHAIR Gerald England M.D. LAB BLOOD ADD-ON Performing Organization Address City/[facility] Phon e Number [facility] - [address] APTT (Activated Partial Thromboplastin Time) (01/31/2021 9:44 PM HUMANITIES DEPARTMENT CHAIR) P athologist Signature Activated 35 25 - 37 sec 01/31/2021 DT Partial 10:27 PM HUMANITIES DEPARTMENT CHAIR Thrombopl Time, P Specimen Anatomical Collection Method Collection Time Receive d Time (Source) Location / / Volume Laterality Blood (Blood, 01/31/2021 9:44 PM 02/01/20 Venous) HUMANITIES DEPARTMENT CHAIR 10:06 PM HUMANITIES DEPARTMENT CHAIR Gerald England M.D. LAB BLOOD ADD-ON Performing Organization Address City/[facility] Phon e Number [facility] - [address] (ABNORMAL) Hemoglobin A1c (01/31/2021 9:44 PM HUMANITIES DEPARTMENT CHAIR) P athologist Signature Hemoglobin A1c, 6.1 (H) 4.0 - 5.6 01/31/2021 DTL B % 10:18 PM HUMANITIES DEPARTMENT CHAIR Comment: Hemoglobin A1c values of 5.7-6.4 percent indicate an increased risk for developing diabetes henrry skinner. In diabetic patients, HbA1c goals should be discussed with healthcare provider. Specimen Anatomical Collection Method Collection Time Receive d Time (Source) Location / / Volume Laterality Blood (Blood, 01/31/2021 9:44 PM 03/06/20 21 Venous) HUMANITIES DEPARTMENT CHAIR 10:06 PM HUMANITIES DEPARTMENT CHAIR Gerald England M.D. LAB BLOOD ADD-ON Performing Organization Address City/State/ZIP Code Phon e Number [facility] - [address] [place], [place] [address] [facility] [place] [address] [facility] [address] [facility] (ABNORMAL) CBC with Differential, Blood (01/31/2021 9:44 PM HUMANITIES DEPARTMENT CHAIR) [facility] Method Time Signature Hemoglobin 11.1 (L) 11.6 - 01/31/2021 DTL 15.0 g/dL 10:12 PM HUMANITIES DEPARTMENT CHAIR Hematocrit 34.9 (L) 35.5 - 01/31/2021 DTL 44.9 % 10:12 PM HUMANITIES DEPARTMENT CHAIR Erythrocytes 3.84 (L) 3.92 - 01/31/2021 DTL 5.13 10:12 PM HUMANITIES DEPARTMENT CHAIR x10(12)/L MCV 90.9 78.2 - 01/31/2021 DTL 97.9 fL 10:12 PM HUMANITIES DEPARTMENT CHAIR RBC Distrib Width 14.4 12.2 - 01/31/2021 DTL 16.1 % 10:12 PM HUMANITIES DEPARTMENT CHAIR Platelet Count 326 157 - 371 01/31/2021 DTL x10(9)/L 10:12 PM HUMANITIES DEPARTMENT CHAIR Leukocytes 6.8 3.4 - 9.6 01/31/2021 DTL x10(9)/L 10:12 PM HUMANITIES DEPARTMENT CHAIR Neutrophils 4.91 1.56 - 01/31/2021 DTL 6.45 10:12 PM HUMANITIES DEPARTMENT CHAIR x10(9)/L Lymphocytes 1.52 0.95 - 01/31/2021 DTL 3.07 10:12 PM HUMANITIES DEPARTMENT CHAIR x10(9)/L Monocytes 0.34 0.26 - 01/31/2021 DTL 0.81 10:12 PM HUMANITIES DEPARTMENT CHAIR x10(9)/L Eosinophils 0.03 0.03 - 01/31/2021 DTL 0.48 10:12 PM HUMANITIES DEPARTMENT CHAIR x10(9)/L Basophils 0.03 0.01 - 01/31/2021 DTL 0.08 10:12 PM HUMANITIES DEPARTMENT CHAIR x10(9)/L Specimen Anatomical Collection Method Collection Time Receive d Time (Source) Location / / Volume Laterality Blood (Blood, 01/31/2021 9:44 PM 02/01/20 21 Venous) HUMANITIES DEPARTMENT CHAIR 10:06 PM HUMANITIES DEPARTMENT CHAIR Gerald England M.D. LAB BLOOD ADD-ON Performing Organization Address City/State/ZIP Code Phon e Number [facility] - [address] [place], [place] [address] [facility] [place] [address] [facility] [address] [facility] S-TSH (Thyroid-Stimulating Hormone - Sensitive) (01/31/2021 9:44 PM HUMANITIES DEPARTMENT CHAIR) P athologist Signature TSH, Sensitive 0.3 0.3 - 4.2 01/31/2021 DTL mIU/L 10:59 PM HUMANITIES DEPARTMENT CHAIR Specimen Anatomical Collection Method Collection Time Receive d Time (Source) Location / / Volume Laterality Blood (Blood, 01/31/2021 9:44 PM 02/01/20 21 Venous) HUMANITIES DEPARTMENT CHAIR 10:06 PM HUMANITIES DEPARTMENT CHAIR Gerald England M.D. LAB BLOOD ADD-ON Performing Organization Address City/State/ZIP Code Phon e Number [facility] - [address] [place], [place] [address] [facility] [place] [address] [place] [address] [facility] AST (Aspartate Aminotransferase) (01/31/2021 9:44 PM HUMANITIES DEPARTMENT CHAIR) [facility] Method Time Signature Aspartate 23 8 - 43 01/31/2021 DTL Aminotransferase U/L 10:59 PM HUMANITIES DEPARTMENT CHAIR (AST), S Specimen Anatomical Collection Method Collection Time Receive d Time (Source) Location / / Volume Laterality Blood (Blood, 01/31/2021 9:44 PM 02/01/20 21 Venous) HUMANITIES DEPARTMENT CHAIR 10:06 PM HUMANITIES DEPARTMENT CHAIR Gerald England M.D. LAB BLOOD ADD-ON Performing Organization Address City/State/ZIP Code Phon e Number [facility] - [address] [place], [place] [address] [facility] [place], [place] [id number] [place] [address] [facility] ALT (Alanine Aminotransferase) (01/31/2021 9:44 PM HUMANITIES DEPARTMENT CHAIR) [facility] Method Time Signature Alanine 15 7 - 45 01/31/2021 DTL Aminotransferase U/L 10:59 PM HUMANITIES DEPARTMENT CHAIR (ALT), S Specimen Anatomical Collection Method Collection Time Receive d Time (Source) Location / / Volume Laterality Blood (Blood, 01/31/2021 9:44 PM 02/01/20 21 Venous) HUMANITIES DEPARTMENT CHAIR 10:06 PM HUMANITIES DEPARTMENT CHAIR Gerald England M.D. LAB BLOOD ADD-ON Performing Organization Address City/State/ZIP Code Phon e Number [facility] - [address] [place], [place] [address] [facility] [place] [address] [facility] [address] documented in this encounter Visit Diagnoses Diagnosis Stroke (HCC) Chronic Pain Syndrome Stroke Cerebrovascular Accident Personal History documented in this encounter Admitting Diagnoses Diagnosis Stroke (HCC) documented in this encounter Administered Medications Inactive Administered Medications - up to 3 most recent administrations Medication Order MAR Action Action Date Dose Rate Site acetaminophen tablet 1,000 mg Given 02/03/2021 6:56 AM HUMANITIES DEPARTMENT CHAIR 1,000 mg (TYLENOL) 1,000 mg, oral, Every 6 hours PRN, mild pain or score 1-3 of 10, moderate pain or score 4-6 of 10, headaches, Starting on 02/01/21 at 0210 Given 02/02/2021 2:36 PM HUMANITIES DEPARTMENT CHAIR 1,000 mg Given 02/02/2021 8:53 AM HUMANITIES DEPARTMENT CHAIR 1,000 mg albuterol 90 mcg/actuation inhaler 2 puf f Given 02/03/2021 4:29 AM HUMANITIES DEPARTMENT CHAIR 2 puffs 2 puff, inhalation, Every 6 hours PRN, wheezing, shortness of breath, Starting on 02/01/21 at 1115 apixaban tablet 5 mg (ELIQUIS) Given 02/03/2021 9:30 AM HUMANITIES DEPARTMENT CHAIR 5 mg 5 mg, oral, 2 times daily, First dose on 02/02/21 at 2100 Given 02/02/2021 8:09 PM HUMANITIES DEPARTMENT CHAIR 5 mg aspirin tablet 325 mg Given 02/02/2021 8:11 AM HUMANITIES DEPARTMENT CHAIR 325 mg 325 mg, oral, Daily, First dose on 02/01/21 at 1030 Given 02/01/2021 10:54 AM HUMANITIES DEPARTMENT CHAIR 325 mg atorvastatin tablet 40 mg (LIPITOR) Given 02/02/2021 8:09 PM HUMANITIES DEPARTMENT CHAIR 40 mg 40 mg, oral, Daily at [...] 25 m cg Given 02/03/2021 9:29 AM HUMANITIES DEPARTMENT CHAIR 25 mcg 25 mcg, oral, Daily, First dose on 02/01/21 at 0900, cholecalciferol (vitamin D3) orderable was interchanged for cholecalciferol (vitamin D3) tablet/capsule Given 02/02/2021 8:10 AM HUMANITIES DEPARTMENT CHAIR 25 mcg Given 02/01/2021 9:11 AM HUMANITIES DEPARTMENT CHAIR 25 mcg cyanocobalamin tablet 2,000 mcg (VITAMIN Given 02/03/2021 9: 28 AM HUMANITIES DEPARTMENT CHAIR 2,000 mcg B12) 2,000 mcg, oral, Daily, First dose on 02/01/21 at 0900 Given 02/02/2021 8:08 AM HUMANITIES DEPARTMENT CHAIR 2,000 mcg Given 02/01/2021 9:11 AM HUMANITIES DEPARTMENT CHAIR 2,000 mcg diazePAM tablet 10 mg (VALIUM) Given 02/03/2021 10:51 AM HUMANITIES DEPARTMENT CHAIR 10 mg 10 mg, oral, 2 times daily PRN, anxiety, Starting on 02/01/21 at 1016 Given 02/02/2021 10:24 PM HUMANITIES DEPARTMENT CHAIR 10 mg Given 02/02/2021 8:53 AM HUMANITIES DEPARTMENT CHAIR 10 mg docusate sodium 283 mg/5 mL enema 1 enem a (ENEMEEZ) 1 enema, rectal, 2 times daily PRN, cons tipation, Starting on 01/31/21 at 2125, If no bowel movement within 24 hours of starting bisac odyl FLUoxetine capsule 80 mg (PROzac) Given 02/03/2021 9:28 AM HUMANITIES DEPARTMENT CHAIR 80 mg 80 mg, oral, Daily, First dose on 02/01/21 at 0900, FLUoxetine orderable was interchanged for FLUoxetine tablet/capsule Given 02/02/2021 8:10 AM HUMANITIES DEPARTMENT CHAIR 80 mg Given 02/01/2021 9:10 AM HUMANITIES DEPARTMENT CHAIR 80 mg folic acid tablet 800 mcg Given 02/03/2021 9:29 AM HUMANITIES DEPARTMENT CHAIR 800 mcg 800 mcg, oral, Every morning, First dose on Tue02/01/21 at 0900 Given 02/02/2021 8:14 AM HUMANITIES DEPARTMENT CHAIR 800 mcg Given 02/01/2021 10:00 AM HUMANITIES DEPARTMENT CHAIR 800 mcg furosemide tablet 40 mg (LASIX) Given 02/03/2021 9:29 AM HUMANITIES DEPARTMENT CHAIR 40 mg 40 mg, oral, 2 times daily, First dose on Tue02/02/21 at 0900 Given 02/02/2021 6:25 PM HUMANITIES DEPARTMENT CHAIR 40 mg Given 02/02/2021 8:10 AM HUMANITIES DEPARTMENT CHAIR 40 mg gadobutrol injection 0.01-30 mL (GADAVIS T) Given 02/03/2021 12:35 PM HUMANITIES DEPARTMENT CHAIR 8 mL 0.01-30 mL, intravenous, Once in imaging, contrast, Starting on Tue02/03/21 at 1235, For 1 dose, Imaging Protocol Orders, Dose per Radiant Medication Guidelines heparin (porcine) Given 02/02/2021 6:29 AM HUMANITIES DEPARTMENT CHAIR 5,000 Units Left Lower Abdomen injection 5,000 Units 5,000 Units, subcutaneous, Every 8 hours scheduled, First dose on Tue02/01/21 at 0600 Given 02/01/2021 9:17 PM HUMANITIES DEPARTMENT CHAIR 5,000 Units Right Lower Abdomen Given 02/01/2021 1:56 PM HUMANITIES DEPARTMENT CHAIR 5,000 Units Right Lower Abdomen lamoTRIgine tablet 200 mg (LaMICtal) Given 02/03/2021 9:29 AM HUMANITIES DEPARTMENT CHAIR 200 mg 200 mg, oral, 2 times daily, First dose (after last modification) on 01/31/21 at 2245 Given 02/02/2021 8:09 PM HUMANITIES DEPARTMENT CHAIR 200 mg Given 02/02/2021 8:11 AM HUMANITIES DEPARTMENT CHAIR 200 mg lidocaine 5 % 1 patch Medication Applied 01/31/2021 10:44 PM 1 patch Upper Back (LIDODERM) HUMANITIES DEPARTMENT CHAIR 1 patch, transdermal, Administer over 12 Hours, Daily, First dose on 01/31/21 at 2200, Remove after 12 hours. lidocaine 5 % ointment 1 application Given 02/02/2021 2:33 A M HUMANITIES DEPARTMENT CHAIR 1 application (XYLOCAINE) 1 application, topical, 3 times daily PRN, mild pain or score 1-3 of 10, Starting on Tue02/01/21 at 1114, MAX of 20 g of ointment/day Given 02/01/2021 5:18 PM HUMANITIES DEPARTMENT CHAIR 1 application loratadine tablet 10 mg (CLARITIN) Given 02/03/2021 9:30 AM HUMANITIES DEPARTMENT CHAIR 10 mg 10 mg, oral, Daily, First dose on Tue02/01/21 at 0900, loratadine 10 mg oral daily was interchanged for cetirizine 5 mg oral twice daily Given 02/02/2021 8:11 AM HUMANITIES DEPARTMENT CHAIR 10 mg Given 02/01/2021 9:12 AM HUMANITIES DEPARTMENT CHAIR 10 mg magnesium oxide tablet 400 mg (MAG-OX) Given 02/02/2021 8:09 PM HUMANITIES DEPARTMENT CHAIR 400 mg 400 mg, oral, Daily at bedtime, First dose on Tue02/01/21 at 2100, magnesium oxide 400 mg daily was interchanged for magnesium gluconate 500 mg daily Given 02/01/2021 9:17 PM HUMANITIES DEPARTMENT CHAIR 400 mg meclizine tablet 25 mg (ANTIVERT) Given 02/02/2021 3:01 AM HUMANITIES DEPARTMENT CHAIR 25 mg 25 mg, oral, 3 times daily PRN, dizziness, Starting on Tue02/01/21 at 0211 Given 02/01/2021 9:19 AM HUMANITIES DEPARTMENT CHAIR 25 mg meclizine tablet 25 mg (ANTIVERT) Given 02/02/2021 8:09 PM HUMANITIES DEPARTMENT CHAIR 25 mg 25 mg, oral, 4 times [...] 1 patch Left Shoulder patch (NICODERM CQ) HUMANITIES DEPARTMENT CHAIR 1 patch, transdermal, Administer over 24 Hours, Daily, First dose on Tue02/01/21 at 0900 Medication Applied 02/02/2021 8:14 AM HUMANITIES DEPARTMENT CHAIR 1 patch Right Arm Medication Applied 02/01/2021 9:13 AM HUMANITIES DEPARTMENT CHAIR 1 patch Left Shoulder nicotine 21 mg/24 hr 1 Medication Applied 02/03/2021 2:55 PM 1 patch Left Shoulder patch (NICODERM CQ) HUMANITIES DEPARTMENT CHAIR 1 patch, transdermal, Administer over 24 Hours, Daily, First dose on Tue02/03/21 at 1330 ondansetron ODT disintegrating tablet 4 mg Given 02/02/2021 10:2 4 PM HUMANITIES DEPARTMENT CHAIR 4 mg (ZOFRAN-ODT) 4 mg, oral, Every 8 hours PRN, nausea, Starting on 01/31/21 at 2228, When splitting ODT at bedside, handle with gloves and a pill splitter to prevent moisture contact. Given 02/02/2021 2:36 PM HUMANITIES DEPARTMENT CHAIR 4 mg Given 02/01/2021 1:12 AM HUMANITIES DEPARTMENT CHAIR 4 mg oxyCODONE IR tablet 10 mg (ROXICODONE) Given 02/03/2021 5:02 PM HUMANITIES DEPARTMENT CHAIR 10 mg 10 mg, oral, Every 6 hours PRN, moderate pain or score 4-6 of 10, Starting on 01/31/21 at 2229 Given 02/03/2021 2:42 AM HUMANITIES DEPARTMENT CHAIR 10 mg Given 02/02/2021 8:08 PM HUMANITIES DEPARTMENT CHAIR [address] tablet 40 mg (PROTONIX) Given 02/03/2021 4:58 PM HUMANITIES DEPARTMENT CHAIR 40 mg 40 mg, oral, 2 times daily before breakfast and dinner, First dose on 02/01/21 at 0700, pantoprazole 40 mg oral twice daily was interchanged for esomeprazole 20 or 40 mg oral twice daily Swallow whole. Do NOT crush, chew, or split tablet. Given 02/03/2021 6:56 AM HUMANITIES DEPARTMENT CHAIR 40 mg Given 02/02/2021 6:25 PM HUMANITIES DEPARTMENT CHAIR 40 mg pregabalin capsule 150 mg (LYRICA) Given 02/01/2021 9:12 AM HUMANITIES DEPARTMENT CHAIR 150 mg 150 mg, oral, Every morning, First dose on 02/01/21 at 0900 pregabalin capsule 300 mg (LYRICA) Given 01/31/2021 11:16 PM HUMANITIES DEPARTMENT CHAIR 300 mg 300 mg, oral, Every evening, First dose on 01/31/21 at 2300 pregabalin capsule 300 mg (LYRICA) Given 02/03/2021 9:28 AM HUMANITIES DEPARTMENT CHAIR 300 mg 300 mg, oral, Every morning, First dose (after last modification) on 02/02/21 at 0900 Given 02/02/2021 8:10 AM HUMANITIES DEPARTMENT CHAIR 300 mg pregabalin capsule 600 mg (LYRICA) Given 02/02/2021 8:09 PM HUMANITIES DEPARTMENT CHAIR 600 mg 600 mg, oral, Daily at bedtime, First dose (after last modification) on 02/01/21 at 2100 Given 02/01/2021 9:17 PM HUMANITIES DEPARTMENT CHAIR 600 mg promethazine injection 6.25 mg (PHENERGA N) Given 02/01/2021 12:47 PM HUMANITIES DEPARTMENT CHAIR 6.25 mg 6.25 mg, intravenous, Once, On 02/01/21 at 1030, For 1 dose QUEtiapine tablet 50 mg (SEROquel) Given 02/03/2021 12:39 AM HUMANITIES DEPARTMENT CHAIR 50 mg 50 mg, oral, Bedtime PRN, agitation/sleep, Starting on 02/01/21 at 1310 rOPINIRole tablet 2 mg (REQUIP) Given 02/03/2021 2:42 AM HUMANITIES DEPARTMENT CHAIR 2 mg 2 mg, oral, Daily PRN, restless legs, Starting on 01/31/21 at 2233 sennosides-docusate sodium 8.6-50 mg per Given 02/03/2021 9: 27 AM HUMANITIES DEPARTMENT CHAIR 2 tablets tablet 2 tablet (SENOKOT-S) 2 [...] 300 mg (ZONEGRAN) Given 02/03/2021 9:28 AM HUMANITIES DEPARTMENT CHAIR 300 mg 300 mg, oral, 2 times daily, First dose (after last modification) on 01/31/21 at 2245, Swallow whole. Do NOT crush, chew or open capsule. Given 02/02/2021 8:09 PM HUMANITIES DEPARTMENT CHAIR 300 mg Given 02/02/2021 8:53 AM HUMANITIES DEPARTMENT CHAIR 300 mg documented in this encounter Active and Recently Administered Medications Times are shown in HUMANITIES DEPARTMENT CHAIR. Scheduled Medication Order 02/01/2021 02/02/2021 02/03/2021 apixaban tablet 5 mg (ELIQUIS) 2008 (Given - Pro vider: Marlene Grover R.N.) 1429 (Given - Provider: Karma Cervantes R.N.) 5 mg, oral, 2 times daily, First dose on 02/02/21 at 2100 aspirin tablet 325 mg (CANCELED) 1054 (Given - Provide r: Valarie Grayson R.N.) 0811 (Given - Provider: [...] Units (CANCELED) 055 0 (Given - Provider: Sharifa MedinaNBritton)1356 (Given - Provider: Valarie Grayson R.N.)211 (Given [...] R.N.)2008 (Given - Provider: Marlene Grover R.N.) 09 (Given - Provider: Karma Cervantes R.N.) 200 [...] Rudolph R.N.) 2008 (Given - Provider: Marlene M Grover, R.N.) 400 mg, oral, Daily at bedtime, First do se on Tue02/01/21 at 2100, magnesium oxide 400 [...] Rudolph R.N.)1825 (Given - Provider: Leatha Vasquez RBetsy) 0656 (Given - Provider: Marlene Grover RBrittonNBritton)1658 (Given - Provider: Sofie Sutton RBetsy) 40 mg, oral, 2 times daily before breakf ast and dinner, First dose on Tue02/01/21 at 0700, pantoprazole 40 mg oral twice daily was interchanged for esomeprazole 20 or 40 mg oral twice daily Swallow whole. Do NOT crush, chew, or split tablet. pregabalin capsule 150 mg (LYRICA) (CANCELED) 09 (Gi saeid - Provider: Valarie Grayson R.N.) 150 mg, oral, Every morning, First dose on 02/01/21 at 0900 pregabalin capsule 300 mg (LYRICA)(Linked Group 1) 0810 (Given - Provider: Leatha Vasquez RBrittonN.) 0928 (Given - Provider: Karma Cervantes RBetsy) 300 mg, oral, Every morning, First dose (after last modification) on 02/02/21 at 0900 pregabalin capsule 600 mg (LYRICA)(Linked Group 1) 211 7 (Given - Provider: Mague Rudolph RBrittonNBritton) 2008 (Given - Provider: Marlene Grover RBetsy) 600 mg, oral, Daily at bedtime, First do se (after last modification) on Tue02/01/21 at 2100 promethazine injection 6.25 mg (PHENERGAN) [...] has diarrhea. zonisamide capsule 300 mg (ZONEGRAN) 09 (Given - Pro vider: Valarie Grayson R.N.)2117 (Given - Provider: Mague Rudolph R.N.) 0853 (Given - Provider: Leatha Vasqeuz R.N.)2008 (Given - Provider: Marlene Grover R.N.) 0928 (Given - Provider: Karma Cervantes R.N.) 300 mg, oral, 2 times daily, First dose (after last modification) on 01/31/21 at 2245, Swallow whole. Do NOT crush, chew or open capsule. PRN Medication Order 02/01/2021 02/02/2021 02/03/2021 acetaminophen tablet 1,000 mg (TYLENOL) 0755 (Given - Provider: Valarie Grayson R.N.)1433 (Given - Provider: Tyler Guerra R.N.) 0853 (Given - Provider: Leatha Vasquez R.N.)1436 [...] (VALIUM) 0853 (Giv en - Provider: Leatha Vasquez, R.N.)2224 (Given - Provider: Marlene Grover R.N.) 1051 (Given - Provider: Karma Cervantes RBrittonNBritton) 10 mg, oral, 2 times daily PRN, [...] (XYLOCAINE) 1718 (Given - Provider: Valarie Grayson R.German.) 0233 (Given - Provider: Mague Rudolph R.NBritton) 1 application, topical, 3 times daily NE N, mild pain or score 1-3 of [...] 2008 ( Given - Provider: Marlene Grover RBrittonNBritton) 25 mg, oral, 4 times daily PRN, [...] Jon R.N.) 1436 (Given - Provider: Leatha chavez, R.N.)2224 (Given - Provider: Marlene Grover RBrittonNBritton) 4 mg, oral, Every 8 hours PRN, nausea, S tarting on 01/31/21 at 2228, When splitting ODT at bedside, handle with gloves and a pill splitter to prevent moisture contact. oxyCODONE IR tablet 10 mg (ROXICODONE) 0919 (Given - P rovider: Valarie Grayson, R.N.)1612 (Given - Provider: Valarie Grayson R.N.) 0232 (Given - Provider: Mague Rudolph R.N.)1353 (Given - Provider: Leatha Vasquez R.N.)2007 (Given - Provider: Marlene Grover R.N.) 0242 [...] (SEROquel) 0039 (Given - Provider: Marlene Grover R.N.) 50 mg, oral, Bedtime PRN, agitation/sleep, Starting on Sun 1 at 1310 rOPINIRole tablet 2 mg (REQUIP) 0242 (Given - Provider: Marlene Grover R.N.) 2 mg, oral, Daily PRN, restless legs, Starting on 01/31/21 at 2233 tiZANidine tablet 4 mg (ZANAFLEX) 0210 (Held by provid er - Provider: Marbella Cutler M.D. - Comment: Sedation) 1924 (Unheld by prov ider - Provider: Discharge [...] 10 mg, rectal, 2 times daily PRN, vicky carrasco, Starting on 01/31/21 at 2125
Suppository is the preference.
documented in this encounter Additional Health Concerns Infection Onset Date Last Indicated Resolved Time COVID19 Pending 01/31/2021 01/31/2021 01/31/2021 10:53 PM HUMANITIES DEPARTMENT CHAIR Assessment Noted Time PHQ-9 Depression Total Score: 23 02/02/2021 11:[address] documented as of this encounter
--- OUTSIDE RECORDS SUMMARY | 2022-08-01 06:47 | XMS_ITS | Encounter Summary ---
:1965 Author Organization [facility] Address [address] [place] [address] Care Team Providers Name Role Phone Unavailable Primary Care Provider Unavailable Reason for Visit Reason Comments Follow-up [facility] Patient Encounter Details Date Type Department Care Team Description 12/29/2020 [facility] Neurology jimmy Celaya M.D. Patient) [place], [facility] [address] [place], [place] [address] [place] [address] [place], [place] [phone] (Work) [phone] Social History Tobacco Use Types Packs/Day Years [...] you attend confucianist or Patient refused 2021 sikhism services? Do [...] her know PCP needs to prescribe meclizine. DRYER Telephone Encounter - Allyssa Amaya - 12/29/2020 [...] ambulance for; one of which lasted over klw-emn-g-half days. She is having headaches, etc. 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
--- OUTSIDE RECORDS SUMMARY | 2022-08-01 06:47 | XMS_ITS | Encounter Summary ---
:1965 Author Organization [facility] Address [address] [place] [address] Care Team Providers Name Role Phone Unavailable Primary Care Provider Unavailable Reason for Referral Outpatient (Routine) - Closed Specialty Diagnoses / Procedures Referred By Contact Clyde bains To Contact Neurology Robert Diehl M. D. [facility] [address] [place] [address] Referral ID Status Reason Start Date Expiration Date Visits Requ ested Visits Authorized [id number] Closed 09/15/2020 09/15/2021 1 1 Reason for Visit Appointment Request (Routine) - Closed Specialty Diagnoses / Procedures Referred By Contact Clyde bains To Contact Neurology Referral ID Status Reason Start Date Expiration Date Visits Requ ested Visits Authorized [id number] Closed 07/31/2020 07/31/2021 1 1 Encounter Details Date Type Department Care Team Description 09/15/2020 Virtual Visit Department of Robert Diehl [place] An eurysm Nonruptured (HCC) (Primary Dx); Neurology in M.D. Nicotine Dependence ; [place], [place] [address] [facility] Aneurysm Cerebral Unruptured (HCC) [address] [place] [phone] Social History Tobacco Use Types Packs/Day Years [...] you attend hindu or Patient refused 2021 mandaen services? Do [...] via the telephone and not in a zenf-im-dqyi manner. Ms. Mosquera is a 55-year-old woman [...] Type Priority Associated Diagnoses Order [facility] Neurology office Outpatient Referral Routine [...] nt right vertebral artery. RADHA, MCA, and restuarant crew worker are patent. Neck MRA: Conventional three-vessel arch [...] nt right vertebral artery. RADHA, MCA, and restuarant crew worker are patent. Neck MRA: Conventional three-vessel arch [...]
--- OUTSIDE RECORDS SUMMARY | 2022-08-01 06:47 | XMS_ITS | Encounter Summary ---
:1965 Author Organization [facility] Address [address] [place] [address] Care Team Providers Name Role Phone Unavailable Primary Care Provider Unavailable Reason for Visit Reason Comments Pre-visit Intake Encounter Details Date Type Department Care Team Description 01/29/2021 Clinical Communication Department of Robert Diehl e-visit Intake Neurology in Lilian Celaya [place], [facility] [place], [place] [address] [place] [phone] [place], [place] [phone] (Work) [phone] Social History Tobacco Use Types Packs/Day Years [...] you attend anabaptism or Patient refused 2021 jain services? Do [...]
--- OUTSIDE RECORDS SUMMARY | 2022-08-01 06:47 | XMS_ITS | Encounter Summary ---
:1965 Author Organization [facility] Address [address] [place] [address] Care Team Providers Name Role Phone Unavailable Primary Care Provider Unavailable Encounter Details Date Type Department Care Team Description 01/07/2021 Anticoagulation Visit Department of Neurology Zuly Alex in [facility] raúl SkaggsNBritton [address] [facility] [address] [place] [phone] Social History Tobacco Use Types Packs/Day Years [...] you attend latter-day or Patient refused 2021 restoration services? Do [...] is 2.28. Discussed with Dr. Ashley Castrejon ([phone]) who advises that the patient take 5 [...] OF PHONE CALL. Test results, symptom assessment. ER documented in this encounter Plan of Treatment Not on filedocumented as of this encounter Procedures Procedure Name Priority Date/Time Associated Diagnosis Comme nts PROTHROMBIN TIME (PT), Routine 01/07/2021 Resul ts for this P procedure are i n the results section . documented in this encounter Results Prothrombin Time (PT) (01/07/2021) P athologist Signature EXT INR 2.28 OTHER (SPECIFY IN MACHINE HOOP MAKER HELPER) Specimen (Source) Anatomical Location Collection Method / Collectio n Time Received Time / Laterality Volume Blood (Blood, 01/07/2021 Venous) Narrative This result has an attachment that is no t available. Historical Provider LAB BLOOD ADD-ON Performing Organization Address City/State/ZIP Code Phon e Number OTHER (SPECIFY IN MACHINE HOOP MAKER HELPER) OTHER (SPECIFY IN MACHINE HOOP MAKER HELPER) N/A documented in this encounter Visit Diagnoses Not on filedocumented in this encounter Additional Health Concerns Assessment Noted Time PHQ-9 Depression Total Score: 5 04/05/2019 8:00 AM CDT documented as of this encounter
--- OUTSIDE RECORDS SUMMARY | 2022-08-01 06:48 | XMS_ITS | Encounter Summary ---
:1965 Author Organization [facility] Address [address] [place] [address] Care Team Providers Name Role Phone Unavailable Primary Care Provider Unavailable Encounter Details Date Type Department Care Team Description 12/08/2019 Documentation Department of Darlin Olmedo, Otorhinolaryngology in .[place], [place] [address] [place] [address] 200 [place] [phone] Social History Tobacco Use Types Packs/Day Years [...] you attend christianity or Patient refused 2021 bahai services? 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 Additional doses of oxycodone not sufficient for [...] she is currently having. -Dr. Clemente Medley ESCENT COUNSELOR documented in this encounter Plan of Treatment Not on filedocumented as of this encounter Visit Diagnoses Not on filedocumented in this encounter Additional Health Concerns Assessment Noted Time PHQ-9 Depression Total Score: 5 04/05/2019 8:00 AM CDT documented as of this encounter
--- OUTSIDE RECORDS SUMMARY | 2022-08-01 06:48 | XMS_ITS | Encounter Summary ---
:[address] [facility] Address [address] [place] [address] Care Team Providers Name Role Phone Unavailable Primary Care Provider Unavailable Encounter Details Date Type Department Care Team Description 12/07/2019 Surgery [facility]ST [facility] OR Darlin Olmedo, SINUSOTOMY ENDOSCOPY [address] [facility] [place] [place] [phone] [address] [place] [address] [place] [phone] Social History Tobacco Use Types Packs/Day Years [...] you attend restorationism or Patient refused 2021 orthodox services? Do [...] sinus rinse kit (jose ramon Dalal or [place]). - Follow the directions on the bottle [...] our clinic or with another department at [facility], an appointment willbe made for you. If you have not received specific details (date, time, location) within 2 weeks of discharge, please contact our office at [phone] to inquire. If you are to follow up somewhere other than [facility], please schedule this appointment (in the timeframe recommended by your surgeon)at your earliest convenience. CONTACT INFORMATION: If you need to reach the Department of ENT at the [facility] regarding any questions during normal business hours, please call . If you are calling after normal business hours and have a concern that needs to be addressed urgently, please call the [facility] Inspector Balance Bridge at and ask to speak to the ENT resident clay pigeon setter. STANT PROFESSOR OF DRAMA AttachmentsThe following attachments cannot be sent through Care Everywhere.Your Scopolamine Patch (Ukrainian)documented in this encounter Medications at Time of [...] at bedtime as needed for sleep. sleep esomeprazole (NexIUM) 40 Take 40 mg by [...] as needed for nausea. oxyCODONE (ROXICODONE) 5 1 tablet 5 times [...] Extradural computer navigation was registered according to pole framer machine's guidelines and confirmed to be accurate within [...] 5 mL Implants None Darlin Olmedo M.D. STANT PROFESSOR OF DRAMA Brief Op Note - Jey Santana M.D. [...] Loss None Implants None Jey Santana M.D. STANT PROFESSOR OF DRAMA documented in this encounter Plan of Treatment Not on filedocumented as of this encounter Procedures Procedure Name Priority Date/Time Associated Diagnosis Comme nts ADULT OXYGEN THERAPY Routine 12/07/2019 2:30 PM ASSISTANT PROFESSOR OF DRAMA EXTRADURAL COMPUTER 12/07/2019 12:13 PM Rhinosin usitis Chronic NAVIGATION ASSISTANT PROFESSOR OF DRAMA Mucocele Nasal Sinus Case Notes MAC ARTIST 10:37 SINUSOTOMY ENDOSCOPY 12/07/2019 12:13 PM ASSISTANT PROFESSOR OF DRAMA Rhi nosinusitis Chronic FRONTAL Mucocele Nasal Sinus Case Notes MAC ARTIST 10:37 documented in this encounter Visit Diagnoses Diagnosis Rhinosinusitis Chronic Mucocele Nasal Sinus documented in this encounter Administered Medications Inactive Administered Medications - up to 3 most recent administrations Medication Order MAR Action Action Date Dose Rate Site acetaminophen injection 1,000 New Bag 12/07/2019 2:38 PM 1,000 mg 400 mL/hr mg (OFIRMEV) ASSISTANT PROFESSOR OF DRAMA 1,000 mg, intravenous, at 400 mL/hr, Administer [...] 1,000 mg (TYLENOL) Given 12/07/2019 12:06 PM ASSISTANT PROFESSOR OF DRAMA 1,000 mg 1,000 mg, oral, Once, On Tue12/07/19 at 1200, For 1 dose, Pre-Op aprepitant capsule 40 mg (EMEND) Given 12/07/2019 12:06 PM ASSISTANT PROFESSOR OF DRAMA 40 mg 40 mg, oral, Once as needed, prevent ponv, Starting on Tue12/07/19 at 1145, For 1 dose, Pre-Op caffeine tablet 200 mg Given 12/07/2019 12:06 PM ASSISTANT PROFESSOR OF DRAMA 200 mg 200 mg, oral, Once as needed, pre-op to prevent caffeine withdrawal headache or to enhance emergence from anesthesia/sedation, Starting on Tue12/07/19 at 1145, For 1 dose, Pre-Op, With sips cocaine 4 % external solution Given 12/07/2019 1:10 PM ASSISTANT PROFESSOR OF DRAMA 4 mL Other As needed, Starting on Tue12/07/19 at 1310, Intra-Op droperidol injection 0.625 mg (INAPSINE) Given 12/07/2019 2:37 PM ASSISTANT PROFESSOR OF DRAMA 0.625 mg 0.625 mg, intravenous, Every 6 [...] 25 mcg (SUBLIMAZE) Given 12/07/2019 2:32 PM ASSISTANT PROFESSOR OF DRAMA 25 mcg 25 mcg, intravenous, Every 2 min PRN, For pain 4 or greater (maximum 100 mcg). If max dose of Fentanyl is reached and if pain is greater than 4, discontinue Fentanyl: give Hydromorphone, Starting on Tue12/07/19 at 1145, Pre-Op ketamine injection 10 mg (KETALAR) Given 12/07/2019 2:37 PM ASSISTANT PROFESSOR OF DRAMA 10 mg 10 mg, intravenous, Once as needed, Pain sedation mismatch AND RASS score less than -1, Starting on Tue12/07/19 at 1430, For 1 dose, PACU (only) lactated ringers New Bag 12/07/2019 3:48 PM ASSISTANT PROFESSOR OF DRAMA 20 mL/hr 20 mL/hr 20 mL/hr, intravenous, Continuous, Starting on Tue12/07/19 at 1400, PACU & Post-Op Continued from OR 12/07/2019 2:25 PM ASSISTANT PROFESSOR OF DRAMA 20 mL/hr 20 mL/hr lidocaine-EPINEPHrine 1 %-1:100,000 Given 12/07/2019 1:45 PM ASSISTANT PROFESSOR OF DRAMA 2 mL Other injection (XYLOCAINE W/EPI) As needed, Starting on Tue12/07/19 at 1320, Intra-Op Given 12/07/2019 1:20 PM ASSISTANT PROFESSOR OF DRAMA 1.5 mL Other metoprolol tablet 12.5 mg [...] 2 mg (VERSED) Given 12/07/2019 12:28 PM ASSISTANT PROFESSOR OF DRAMA 2 mg 2 mg, intravenous, Once as needed, anxiety, sedation, Starting on Tue12/07/19 at 1145, For 1 dose, Pre-Op ondansetron ODT disintegrating tablet 4 mg Given 12/07/2019 12:0 7 PM ASSISTANT PROFESSOR OF DRAMA 4 mg (ZOFRAN-ODT) 4 mg, sublingual, Once, On Tue12/07/19 at 1200, For 1 dose, Pre-Op, When splitting ODT at bedside, handle with gloves and a pill splitter to prevent moisture contact. oxymetazoline 0.05 % nasal spray Given 12/07/2019 1:42 PM ASSISTANT PROFESSOR OF DRAMA 1 application (AFRIN) As needed, Starting on Tue12/07/19 at 1342, Intra-Op scopolamine base 1 mg Medication Applied 12/07/2019 12:11 PM 1 patch Behind Right over 3 days 1 patch ASSISTANT PROFESSOR OF DRAMA Ear (TRANSDERM SCOP) 1 patch, transdermal, Administer [...] Recently Administered Medications Times are shown in ASSISTANT PROFESSOR OF DRAMA. Scheduled Medication Order 12/05/2019 12/06/2019 12/07/2019 acetaminophen [...] ED) 1207 (Given - Provider: Steph Gallo R.N.) 4 mg, sublingual, Once, On Tue12/07/19 a [...] (COMPLETED) 1251 (Given - Provider: Gini Garcia, ADVERTISING DISPATCH CLERK, BUNDLE SHAKER) 1,250 mg (rounded from 1,146 mg = [...] (Continued from OR - Provider: Jerica Uribe R.N. - Comment: bag level 300 cc)1548 (New [...] 1206 (Given - Provider: Steph Gallo R.N.) 40 mg, oral, Once as needed, prevent [...] 1211 (Medication Applied - Provider: Steph Gallo R.N.)1643 (Due: Medication Removed - Provider: Discharge Provider, [...]
--- OUTSIDE RECORDS SUMMARY | 2022-08-01 06:48 | XMS_ITS | Encounter Summary ---
:1965 Author Organization [facility] Address [address] [place] [address] Care Team Providers Name Role Phone Unavailable [...] you attend confucianism or Patient refused 2021 christian services? Do [...] 11/29/2019 3:10 Results for this EXAM PM PRINTING PLATE MAKER procedure are i n the results section. documented in this encounter Results NOSE-Otorhinolaryngology Image Exam (11/29/2019 3:10 PM PRINTING PLATE MAKER) Specimen (Source) Anatomical Collection Method Collection Time Re ceived Time Location / / Volume Laterality 11/29/2019 3:08 PM PRINTING PLATE MAKER Narrative IIMS - 11/29/2019 3:58 PM PRINTING PLATE MAKER This order has been created and auto-finalized [...]
--- OUTSIDE RECORDS SUMMARY | 2022-08-01 06:48 | XMS_ITS | Encounter Summary ---
:1965 Author Organization [facility] Address [address] [place] [address] Care Team Providers Name Role Phone Unavailable Primary Care Provider Unavailable Encounter Details Date Type Department Care Team Description 12/07/2019 Anesthesia Event RST ROMB LUISA OR Leonides Walker, [address] [facility] [place] [address] [address] [place] [address] [place] [address] (Wo rk) Anesthesia Record Procedure [...] Simin valentine, Jey García, (created via procedure COORDINATING PRODUCER, SOUVENIR AND NOVELTY MAKER COORDINATING PRODUCER, TY A documentation); Mask Ventilation: Easy mask; [...] you attend baptism or Patient refused 2021 jehovah's witness services? Do you belong to any clubs or No 05/17/2022 organizations such as baptism groups, unions, frae [employer] or athletic groups, or school groups? How [...] Procedure Summary Date: 12/07/19 Room / Location: [place] [address] ROMB 01 580 / [facility] in [place], [place] Anesthesia Start: 1234 Anesthesia Stop: 1434 Procedures: SINUSOTOMY ENDOSCOPY FRONTAL. (Bilateral Nose) EXTRADURAL COMPUTER NAVIGATION. 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 Responsible Provider: Leonides Walker [...] Promethazine; otherwise, uneventful recovery with outpt dispo. ER VULCANIZING MACHINE OPERATOR Anesthesia Procedure Notes - Gini Garcia APRN, [...] Procedure outcome: successful Airway event: no complications ER VULCANIZING MACHINE OPERATOR Anesthesia Preprocedure Evaluation - Leonides Walker M.D. - 12/07/2019 11:59 AM CST Preprocedure Anesthesia & H&P Assessment Procedure Summary Date/Time: 12/07/19 1119 Procedures: SINUSOTOMY ENDOSCOPY FRONTAL. (Bilateral Nose) EXTRADURAL COMPUTER NAVIGATION. 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 Location: [place] [address] / [facility] in [place], [place] Provider: Darlin Olmedo M.D. Pertinent components [...] #11 Patent Foramen Ovale (HCC) Noted on [id number]/ ECHO otherwise normal. I will not pursue [...] with patient /legal guardian or through an translator/interpreter. The use of blood products not discussed Approval to Proceed: approved for anesthesia ER VULCANIZING MACHINE OPERATOR documented in this encounter Plan of Treatment Not on filedocumented as of this encounter Procedures Procedure Name Priority Date/Time Associated Comments Diagnosis LDA ANE ENDOTRACHEAL Routine 12/07/2019 12:47 Res ults for this AIRWAY PM RUBBER VULCANIZING MACHINE OPERATOR procedure are i n the results section. documented in this encounter Results LDA ANE ENDOTRACHEAL AIRWAY (12/07/2019 12:47 PM RUBBER VULCANIZING MACHINE OPERATOR) Narrative Gini Garcia APRN, CRNA - 2019 12:47 PM RUBBER VULCANIZING MACHINE OPERATOR Gini Garcia APRN, CRNA ? 12/07/2019 12:49 [...] dexamethasone injection (DECADRON) Given 12/07/2019 12:43 PM RUBBER VULCANIZING MACHINE OPERATOR 4 mg As needed, Starting on Tue12/07/19 at 1243, Anesthesia Intra-op ePHEDrine (PF) injection Given 12/07/2019 12:48 PM RUBBER VULCANIZING MACHINE OPERATOR 5 mg intravenous, As needed, Starting on Tue12/07/19 at 1242, Anesthesia Intra-op Given 12/07/2019 12:42 PM RUBBER VULCANIZING MACHINE OPERATOR 25 mg fentaNYL injection 25 mcg (SUBLIMAZE) Given 12/07/2019 2:32 PM RUBBER VULCANIZING MACHINE OPERATOR 25 mcg 25 mcg, intravenous, Every 2 min PRN, For pain 4 or greater (maximum 100 mcg). If max dose of Fentanyl is reached and if pain is greater than 4, discontinue Fentanyl: give Hydromorphone, Starting on Tue12/07/19 at 1145, Pre-Op lactated ringers New Bag 12/07/2019 12:39 PM RUBBER VULCANIZING MACHINE OPERATOR intravenous, Continuous Infusion: Per Instructions PRN, Starting on Tue12/07/19 at 1239, Anesthesia Intra-op lidocaine (PF) (cardiac) injection Given 12/07/2019 12:40 PM RUBBER VULCANIZING MACHINE OPERATOR 100 mg intravenous, As needed, Starting on Tue12/07/19 at 1240, Anesthesia Intra-op ondansetron (PF) injection (ZOFRAN) Given 12/07/2019 1:57 PM RUBBER VULCANIZING MACHINE OPERATOR 4 mg intravenous, As needed, Starting on Tue12/07/19 at 1357, Anesthesia Intra-op phenylephrine injection Given 12/07/2019 12:50 PM RUBBER VULCANIZING MACHINE OPERATOR 100 mcg intravenous, As needed, Starting on Tue12/07/19 at 1246, Anesthesia Intra-op Given 12/07/2019 12:48 PM RUBBER VULCANIZING MACHINE OPERATOR 100 mcg Given 12/07/2019 12:46 PM RUBBER VULCANIZING MACHINE OPERATOR 100 mcg propofol 10 mg/mL infusion Rate/Dose 12/07/2019 75 mcg/kg/min 34.4 m L/hr (DIPRIVAN) Change 12:46 PM RUBBER VULCANIZING MACHINE OPERATOR intravenous, Continuous Infusion: Per Instructions PRN, Starting on Tue12/07/19 at 1241, Anesthesia Intra-op New Bag 12/07/2019 12:41 PM RUBBER VULCANIZING MACHINE OPERATOR 250 mcg/kg/min 115 mL/hr propofol injection (DIPRIVAN) Given 12/07/2019 12:42 PM RUBBER VULCANIZING MACHINE OPERATOR 100 mg intravenous, As needed, Starting on Tue12/07/19 at 1242, Anesthesia Intra-op remifentanil 20 mcg/mL in Rate/Dose 12/07/2019 1:43 0.1 mcg/kg/min 2 2.9 mL/hr NaCl 0.9% 100 mL infusion Change PM RUBBER VULCANIZING MACHINE OPERATOR (ULTIVA) Continuous Infusion: Per Instructions PRN, Starting on Tue12/07/19 at 1246, Anesthesia Intra-op Rate/Dose Change 12/07/2019 12:53 PM RUBBER VULCANIZING MACHINE OPERATOR 0.2 mcg/kg/min 45.8 mL/hr New Bag 12/07/2019 12:46 PM RUBBER VULCANIZING MACHINE OPERATOR 0.25 mcg/kg/min 57.3 mL/hr succinylcholine (PF) injection (ANECTINE ) Given 12/07/2019 12:42 PM RUBBER VULCANIZING MACHINE OPERATOR 10 mg intravenous, As needed, Starting on Tue12/07/19 at 1242, Anesthesia Intra-op vancomycin in NaCl 0.9% IVPB 1,250 mg Given 12/07/2019 12:51 PM RUBBER VULCANIZING MACHINE OPERATOR 1.25 g 1,250 mg (rounded from 1,146 [...]
--- OUTSIDE RECORDS SUMMARY | 2022-08-01 06:48 | XMS_ITS | Encounter Summary ---
:1965 Author Organization [facility] Address [address] [place] [address] Care Team Providers Name Role Phone Unavailable [...] you attend nondenominational or Patient refused 2021 judaism services? Do [...] 12/07/2019 12:15 Results for this EXAM PM PRODUCT SAFETY COORDINATOR procedure are i n the results section. documented in this encounter Results NOSE-Otorhinolaryngology Image Exam (12/07/2019 12:15 PM PRODUCT SAFETY COORDINATOR) Specimen (Source) Anatomical Collection Method Collection Time Re ceived Time Location / / Volume Laterality 12/07/2019 12:15 PM PRODUCT SAFETY COORDINATOR Narrative IIM[facility] - 12/07/2019 2:07 PM PRODUCT SAFETY COORDINATOR This order has been created and auto-finalized to support the import of images acquired without order. The clini fracne documentation to support these images can be [...]
--- OUTSIDE RECORDS SUMMARY | 2022-08-01 06:48 | XMS_ITS | Encounter Summary ---
:1965 Author Organization [facility] Address [address] [place] [address] Care Team Providers Name Role Phone Unavailable [...] you attend rastafarian or Patient refused 2021 methodist services? Do [...] 12/18/2019 1:57 Results for this EXAM PM SUPERVISOR SOAKERS procedure are i n the results section. documented in this encounter Results NOSE-Otorhinolaryngology Image Exam (12/18/2019 1:57 PM SUPERVISOR SOAKERS) Specimen (Source) Anatomical Collection Method Collection Time Re ceived Time Location / / Volume Laterality 12/18/2019 1:57 PM SUPERVISOR SOAKERS Narrative [facility] - 12/18/2019 1:57 PM SUPERVISOR SOAKERS This order has been created and auto-finalized [...]
--- OUTSIDE RECORDS SUMMARY | 2022-08-01 06:48 | XMS_ITS | Encounter Summary ---
:[address] [facility] Address [address] [place] [address] Care Team Providers Name Role Phone Unavailable Primary Care Provider Unavailable Reason for Visit Outpatient (Routine) - Closed Specialty Diagnoses / Procedures Referred By Contact Refer red To Contact Otorhinolaryngology Jey Santana M.D. [facility] [address] [place] [phone] Referral ID Status Reason Start Date Expiration Date Visits Requ ested Visits Authorized [id number] Closed 11/08/2019 11/07/2020 1 1 Encounter Details Date Type Department Care Team Description 11/29/2019 Office Visit Department of Darlin Olmedo Mucocele Nasa l Sinus Otorhinolaryngology jimmy Brumfield M.D. (Primary Dx) [address] [place] [phone] Social History Tobacco Use Types Packs/Day Years [...] you attend mormonism or Patient refused 2021 faith services? Do you belong to any clubs or No 05/17/2022 organizations such as mormonism groups, unions, [employer] or athletic groups, or school groups? How [...] Previous sinus surgery: sinus surgery X2 in [place] and X2 at [place] per patient; mucocele notedby left eye on [...] Crusting Mild = 1 Mild = 1 [place] Score = 2 ASSESSMENT / PLAN [...] if this occurs we will identify another communications consultant surgeon to supervise other team members to safely and seamlessly complete the procedure. Signed consent was obtained today. Patient was seen and examined today in conjunction with Dr. Darlin Olmedo ([phone]). GRATED PEST MANAGEMENT TECHNICIAN Associated attestation - Darlin Olmedo M.D. - 11/30/2019 10:43 AM INTEGRATED PEST MANAGEMENT TECHNICIAN I was the supervising physician in the delivery of the service. I saw the patient with Krista Casey APRN, TOOL TECHNICIAN, MSN and agree with her history, Assessment [...]
--- OUTSIDE RECORDS SUMMARY | 2022-08-01 06:48 | XMS_ITS | Encounter Summary ---
:1965 Author Organization [facility] Address [address] [place] [address] Care Team Providers Name Role Phone Unavailable Primary Care Provider Unavailable Encounter Details Date Type Department Care Team Description 12/06/2019 Clinical Communication Department of Robert Diehl, Neurology in .. [place], [place] 200 [facility] 200 [place] [phone] Social History Tobacco Use Types Packs/Day Years [...] you attend taoism or Patient refused 2021 roman catholic services? [...] during her next visit. Janis Preston R.N. ING AND EMBOSSING UNIT OPERATOR Telephone Encounter - Janis Preston R.N. - 12/06/2019 1:35 PM CST ----- Message from Robert Diehl M.D. sent at 12/03/2019 10:17 AM COATING AND EMBOSSING UNIT OPERATOR ----- Regarding: FW: Overnight oximetry Good morning Would you be able to reach out and let this patient know the oximetry was unsuccessful and would need to be repeated and ask if they would like to do this? Thank you! Electronically signed by: Robert Diehl M.D. 12/03/19 10:18 AM COATING AND EMBOSSING UNIT OPERATOR ----- Message ----- From: Carolynn Stokes Sent: 11/29/2019 2:39 PM COATING AND EMBOSSING UNIT OPERATOR To: Robert Diehl M.D. Subject: Overnight oximetry Your patients overnight oximetry test did not have recorded data of sufficient duration for an interpretation to be completed and was returned four months after appointment. Therefore an overnight oximetry report will not be generated to [facility]. Please contact your clinical doctor assistant to reschedule an overnight oximetry test if you wish the patient to repeat an overnight oximetry test. ING AND EMBOSSING UNIT OPERATOR documented in this encounter Plan of [...] Organization Address City/State/ZIP Code Phon e Number [place] [facility] documented in this encounter Visit Diagnoses Diagnosis Fatigue - Primary Fatigue documented in this encounter Additional Health Concerns Assessment Noted Time PHQ-9 Depression Total Score: 5 04/05/2019 8:00 AM CDT documented as of this encounter
--- OUTSIDE RECORDS SUMMARY | 2022-08-01 06:48 | XMS_ITS | Encounter Summary ---
:1965 Author Organization [facility] Address [address] [place] [address] Care Team Providers Name Role Phone Unavailable Primary Care Provider Unavailable Encounter Details Date Type Department Care Team Description 01/07/2020 Diagnostic Division of Pulmonary Akhil Diehl M.D. [facility] Medicine in [place], [facility] [address] [place], [place] 200 [facility] [address] [place] [phone] Social History Tobacco Use Types Packs/Day Years [...] Organization Address City/State/ZIP Code Phon e Number [place] [facility] documented in this encounter Visit Diagnoses Diagnosis Fatigue documented in this encounter Additional Health Concerns Assessment Noted Time PHQ-9 Depression Total Score: 5 04/05/2019 8:00 AM CDT documented as of this encounter
--- OUTSIDE RECORDS SUMMARY | 2022-08-01 06:48 | XMS_ITS | Encounter Summary ---
:1965 Author Organization [facility] Address [address] [place] [address] Care Team Providers Name Role Phone Unavailable Primary Care Provider Unavailable Reason for Visit Outpatient (Routine) - Closed Specialty Diagnoses / Procedures Referred By Contact Refer red To Contact Otorhinolaryngology Darlin Olmedo M.D . [facility] [address] [place] [phone] Referral ID Status Reason Start Date Expiration Date Visits Requ ested Visits Authorized [id number] Closed 12/18/2019 12/17/2020 1 1 Encounter Details Date Type Department Care Team Description 01/08/2020 Office Visit Department of Darlin Olmedo Mucocele Nasa l Sinus Otorhinolaryngology jimmy Brumfield M.D. (Primary Dx) [address] [place] [phone] Social History Tobacco Use Types [...] you attend scientology or Patient refused 2021 shinto services? Do you belong to any clubs or No 05/17/2022 organizations such as scientology groups, unions, fra[employer] or athletic groups, or school groups? How [...] She will continue saline irrigations and Flonase. K OUT WORKER Associated attestation - Darlin Olmedo M.D. - 01/16/2020 5:45 PM BREAK OUT WORKER I saw and evaluated the patient, participating [...]
--- OUTSIDE RECORDS SUMMARY | 2022-08-01 06:48 | XMS_ITS | Encounter Summary ---
:1965 Author Organization [facility] Address [address] [place] [address] Care Team Providers Name Role Phone Unavailable Primary Care Provider Unavailable Reason for Referral Outpatient (Routine) - Closed Specialty Diagnoses / Procedures Referred By Contact Refer herson To Contact General Surgery Diagnoses Rhinosinusitis Chronic John Gomez M.D. [address] [phone] Referral ID Status Reason Start Date Expiration Date Visits Requ ested Visits Authorized [id number] Closed 11/08/2019 11/07/2020 1 1 utpatient (Routine) - Closed Specialty Diagnoses / Procedures Referred By Contact Clyde bains To Contact Otorhinolaryngology John Gomez M.D. [address] [phone] Referral ID Status Reason Start Date Expiration Date Visits Requ ested Visits Authorized [id number] Closed 11/08/2019 11/07/2020 1 1 Scheduling Instructions EKO listing visit and NESHA 11/29/2019 ICLEBOARD FACTORY WORKER Reason for Visit Reason Onset Date Comments reschedule surgery 11/07/2019 Patient was a no sydni w for surgery with Dr. Olmedo on 11/05/19. Encounter Details Date Type Department Care Team Description 11/07/2019 Clinical Department of shawna Olmedo Communication Otorhinolaryngology in Darlin Brumfield, surg silva (Patient [place], [place] M.D. was a no show for [address] [place]. [place], [place] [phone] SHAHANA [place] on [phone] [place], 11/05/19.) [place] [address] Social History Tobacco Use Types Packs/Day Years [...] you attend jainism or Patient refused 2021 buddhist services? Do [...] Tanvi White R.N. - 11/09/2019 10:02 AM PARTICLEBOARD FACTORY WORKER Patient called to let her know of the preoperative appointments and listing appointment with Dr. Darlin Olmedo. She was also informed that she does not have to stop the aspirin 81 mg for surgery. She verbalized understanding regarding the use of aspirin and was appreciative of the call. ICLEBOARD FACTORY WORKER Telephone Encounter - John Gomez M.D. - 11/08/2019 5:00 PM CST Kosta Wu I placed the NESHA, listing visit, and created the listing. She can stay on her 81 ASA. Thank you. ICLEBOARD FACTORY WORKER Addendum Note - John Gomez M.D. - 11/08/2019 4:59 PM PARTICLEBOARD FACTORY WORKER Addended by: JOHN GOMEZ on: 11/08/2019 04:59 PM Modules accepted: Orders ICLEBOARD FACTORY WORKER Telephone Encounter - Tanvi White R.N. - 11/08/2019 10:59 AM PARTICLEBOARD FACTORY WORKER SUBJECTIVE CHIEF COMPLAINT / REASON FOR CALL [...] the surgical date. She will require a grain combine driver and that plan will work better for her. Disposition/Recommendation: Patient is aware that she will need to call in the night before surgeryfor a report [facility]. Information/Education: patient/caller able to teach back Caller agreeable to plan of care: yes The following references were used: nursing clinical judgement ICLEBOARD FACTORY WORKER Telephone Encounter - Darlin Olmedo M.D. - 11/08/2019 10:16 AM CST Any of those days are fine. I should see her for a listing visit and NESHA. thanks ICLEBOARD FACTORY WORKER Telephone Encounter - Tanvi White R.N. - 11/07/2019 1:34 PM PARTICLEBOARD FACTORY WORKER SUBJECTIVE CHIEF COMPLAINT / REASON FOR CALL [...] following references were used: nursing clinical judgement ICLEBOARD FACTORY WORKER documented in this encounter Plan of Treatment Scheduled Referrals Name Type Priority Associated Diagnoses Order S chedule Otorhinolaryngology office Outpatient Routine E xpected: visit (clinic) Referral 11/29/2019, Expires: 11/08/2022 Preoperative Evaluation Outpatient Routine Rhinosinusitis Ex pected: NESHA consult (clinic) Referral Chronic 020 (Approximate), Expires: 11/08/2022 documented as of this encounter Results (ABNORMAL) CBC without Differential (11/29/2019 11:30 AM PARTICLEBOARD FACTORY WORKER) [facility] gist Method Time Signature Hemoglobin 13.3 11.6 - 11/29/2019 DTL 15.0 g/dL 12:09 PM PARTICLEBOARD FACTORY WORKER Hematocrit 40.6 35.5 - 11/29/2019 DTL 44.9 % 12:09 PM PARTICLEBOARD FACTORY WORKER Erythrocytes 4.08 3.92 - 11/29/2019 DTL 5.13 12:09 PM PARTICLEBOARD FACTORY WORKER x10(12)/L MCV 99.5 (H) 78.2 - 11/29/2019 DTL 97.9 fL 12:09 PM PARTICLEBOARD FACTORY WORKER RBC Distrib Width 13.3 12.2 - 11/29/2019 DTL 16.1 % 12:09 PM PARTICLEBOARD FACTORY WORKER Platelet Count 234 157 - 371 11/29/2019 DTL x10(9)/L 12:09 PM PARTICLEBOARD FACTORY WORKER Leukocytes 5.8 3.4 - 9.6 11/29/2019 DTL x10(9)/L 12:09 PM PARTICLEBOARD FACTORY WORKER Specimen Anatomical Collection Method Collection Time Receive d Time (Source) Location / / Volume Laterality Blood (Blood, 11/29/2019 11:30 11/29/2019 Venous) AM PARTICLEBOARD FACTORY WORKER 11:50 AM PARTICLEBOARD FACTORY WORKER John Gomez M.D. LAB BLOOD ADD-ON Performing Organization Address City/State/ZIP Code Phon e Number [facility] - [address] [place], [place] [address] [facility] [address] [facility] [address] documented in this encounter Visit Diagnoses Diagnosis Rhinosinusitis Chronic - Primary documented in this encounter Additional Health Concerns Assessment Noted Time PHQ-9 Depression Total Score: 5 04/05/2019 8:00 AM CDT documented as of this encounter
--- OUTSIDE RECORDS SUMMARY | 2022-08-01 06:48 | XMS_ITS | Encounter Summary ---
:1965 Author Organization [facility] Address [address] [place] [address] Care Team Providers Name Role Phone Unavailable Primary Care Provider Unavailable Encounter Details Date Type Department Care Team Description 10/03/2019 Clinical Communication Department of Robert Diehl, Neurology in .. [place], [place] 200 [facility] 200 [place] [phone] Social History Tobacco Use Types Packs/Day Years [...] you attend jewish or Patient refused 2021 yazidism services? Do [...] Coby this is for you, records request RVISOR ORDNANCE TRUCK INSTALLATION Telephone Encounter - Janis Preston R.N. - 10/03/2019 3:11 PM CST Called patient back with update about aspirin per Dr. Diehl. Patient voiced understanding that she will stop the warfarin and continue baby aspirin. She wants notes about her visit sent to her DrBrittonin [place]. Janis Preston R.N. RVISOR ORDNANCE TRUCK INSTALLATION Telephone Encounter - Janis Preston R.N. - [...] dose and warfarin discontinuation. Janis Preston R.N. RVISOR ORDNANCE TRUCK INSTALLATION documented in this encounter Plan of Treatment Not on filedocumented as of this encounter Visit Diagnoses Not on filedocumented in this encounter Additional Health Concerns Assessment Noted Time PHQ-9 Depression Total Score: 5 04/05/2019 8:00 AM CDT documented as of this encounter
--- OUTSIDE RECORDS SUMMARY | 2022-08-01 06:48 | XMS_ITS | Encounter Summary ---
:1965 Author Organization [facility] Address [address] [place] [address] Care Team Providers Name Role Phone Unavailable Primary Care Provider Unavailable Reason for Visit Reason Comments shyam Encounter Details Date Type Department Care Team Description 07/29/2020 Clinical Communication Department of Robert Diehl w8b/scharf Neurology in [place], [place] [address] [place] [address] 200 [place] [phone] Social History Tobacco Use Types Packs/Day Years [...] you attend faith or Patient refused 2021 buddhist services? Do [...] for magnetic resonance angiogram be sent to [place]. José Miguel advise what the exact testing [...]
--- OUTSIDE RECORDS SUMMARY | 2022-08-01 06:48 | XMS_ITS | Encounter Summary ---
:1965 Author Organization [facility] Address [address] [place] [address] Care Team Providers Name Role Phone Unavailable Primary Care Provider Unavailable Encounter Details Date Type Department Care Team Description 12/07/2019 Hospital Encounter RST ROMB MAIN OR Darlin Olmedo, [address] [facility] [place] [place] [address] [address] [place] [address] [place] [address] Social History Tobacco Use Types [...] you attend yazdanism or Patient refused 2021 baptist services? Do [...] Comments Blood Pressure 114/72 12/07/2019 3:30 PM SALESPERSON FASHION ACCESSORIES Pulse 75 12/07/2019 4:25 PM SALESPERSON FASHION ACCESSORIES Temperature 36.5 ??C (97.7 ??F) 12/07/2019 2:32 PM SALESPERSON FASHION ACCESSORIES Respiratory Rate 15 12/07/2019 4:25 PM SALESPERSON FASHION ACCESSORIES Oxygen Saturation 94% 12/07/2019 4:25 PM SALESPERSON FASHION ACCESSORIES Inhaled Oxygen Concentration - - Weight - [...] saline sinus rinse kit (suchas NeIron or Avant). - Follow the directions on the bottle [...] our clinic or with another department at [facility], an appointment willbe made for you. If you have not received specific details (date, time, location) within 2 weeks of discharge, please contact our office at [phone] to inquire. If you are to follow up somewhere other than [facility], please schedule this appointment (in the timeframe recommended by your surgeon)at your earliest convenience. CONTACT INFORMATION: If you need to reach the Department of ENT at the [facility] regarding any questions during normal business hours, please call . If you are calling after normal business hours and have a concern that needs to be addressed urgently, please call the [facility] Retail Warehouse Associate at and ask to speak to the ENT resident field contact technician. SPERSON FASHION ACCESSORIES AttachmentsThe following attachments cannot be sent through Care Everywhere.Your Scopolamine Patch (Ghanaian)documented in this encounter Medications at Time of [...] Extradural computer navigation was registered according to data governance analyst's guidelines and confirmed to be accurate within [...] 5 mL Implants None Darlin Olmedo M.D. SPERSON FASHION ACCESSORIES Brief Op Note - Jey Santana M.D. [...] Loss None Implants None Jey Santana M.D. SPERSON FASHION ACCESSORIES documented in this encounter Plan of Treatment Not on filedocumented as of this encounter Procedures Procedure Name Priority Date/Time Associated Diagnosis Comme nts ADULT OXYGEN THERAPY Routine 12/07/2019 2:30 PM SALESPERSON FASHION ACCESSORIES EXTRADURAL COMPUTER 12/07/2019 12:13 PM Rhinosin usitis Chronic NAVIGATION SALESPERSON FASHION ACCESSORIES Mucocele Nasal Sinus Case Notes DIAL SCREW ASSEMBLER 10:37 SINUSOTOMY ENDOSCOPY 12/07/2019 12:13 PM SALESPERSON FASHION ACCESSORIES Rhi nosinusitis Chronic FRONTAL Mucocele Nasal Sinus Case Notes DIAL SCREW ASSEMBLER 10:37 documented in this encounter Visit Diagnoses Not on filedocumented in this encounter Administered Medications Inactive Administered Medications - up to 3 most recent administrations Medication Order MAR Action Action Date Dose Rate Site acetaminophen injection 1,000 New Bag 12/07/2019 2:38 PM 1,000 mg 400 mL/hr mg (OFIRMEV) SALESPERSON FASHION ACCESSORIES 1,000 mg, intravenous, at 400 mL/hr, Administer [...] 1,000 mg (TYLENOL) Given 12/07/2019 12:06 PM SALESPERSON FASHION ACCESSORIES 1,000 mg 1,000 mg, oral, Once, On Tue12/07/19 at 1200, For 1 dose, Pre-Op aprepitant capsule 40 mg (EMEND) Given 12/07/2019 12:06 PM SALESPERSON FASHION ACCESSORIES 40 mg 40 mg, oral, Once as needed, prevent ponv, Starting on Tue12/07/19 at 1145, For 1 dose, Pre-Op caffeine tablet 200 mg Given 12/07/2019 12:06 PM SALESPERSON FASHION ACCESSORIES 200 mg 200 mg, oral, Once as needed, pre-op to prevent caffeine withdrawal headache or to enhance emergence from anesthesia/sedation, Starting on Tue12/07/19 at 1145, For 1 dose, Pre-Op, With sips droperidol injection 0.625 mg (INAPSINE) Given 12/07/2019 2:37 PM SALESPERSON FASHION ACCESSORIES 0.625 mg 0.625 mg, intravenous, Every 6 [...] 25 mcg (SUBLIMAZE) Given 12/07/2019 2:32 PM SALESPERSON FASHION ACCESSORIES 25 mcg 25 mcg, intravenous, Every 2 min PRN, For pain 4 or greater (maximum 100 mcg). If max dose of Fentanyl is reached and if pain is greater than 4, discontinue Fentanyl: give Hydromorphone, Starting on Tue12/07/19 at 1145, Pre-Op ketamine injection 10 mg (KETALAR) Given 12/07/2019 2:37 PM SALESPERSON FASHION ACCESSORIES 10 mg 10 mg, intravenous, Once as needed, Pain sedation mismatch AND RASS score less than -1, Starting on Tue12/07/19 at 1430, For 1 dose, PACU (only) lactated ringers New Bag 12/07/2019 3:48 PM SALESPERSON FASHION ACCESSORIES 20 mL/hr 20 mL/hr 20 mL/hr, intravenous, Continuous, Starting on Tue12/07/19 at 1400, PACU & Post-Op Continued from OR 12/07/2019 2:25 PM SALESPERSON FASHION ACCESSORIES 20 mL/hr 20 mL/hr metoprolol tablet 12.5 [...] 2 mg (VERSED) Given 12/07/2019 12:28 PM SALESPERSON FASHION ACCESSORIES 2 mg 2 mg, intravenous, Once as needed, anxiety, sedation, Starting on Tue12/07/19 at 1145, For 1 dose, Pre-Op ondansetron ODT disintegrating tablet 4 mg Given 12/07/2019 12:0 7 PM SALESPERSON FASHION ACCESSORIES 4 mg (ZOFRAN-ODT) 4 mg, sublingual, Once, On Tue12/07/19 at 1200, For 1 dose, Pre-Op, When splitting ODT at bedside, handle with gloves and a pill splitter to prevent moisture contact. scopolamine base 1 mg Medication Applied 12/07/2019 12:11 PM 1 patch Behind Right over 3 days 1 patch SALESPERSON FASHION ACCESSORIES Ear (TRANSDERM SCOP) 1 patch, transdermal, Administer [...] Recently Administered Medications Times are shown in SALESPERSON FASHION ACCESSORIES. Scheduled Medication Order 12/05/2019 12/06/2019 12/07/2019 acetaminophen [...] mg (COMPLETED) 1251 (Given - Provider: Gini Garcia APRN, LOGISTICS PLANNER) 1,250 mg (rounded from 1,146 mg = [...] (COMPLETED) 1206 (Given - Provider: Steph Gallo RBetsy) 40 mg, oral, Once as needed, prevent bahman v, Starting on Tue12/07/19 at 1145, For 1 dose, Pre-Op belladonna alkaloids-opium 16.2-60 mg suppository 1 ingram ppository (B&O SUPPRETTS) 1 suppository, rectal, Once as needed, b ladder spasms, Starting Tue12/07/19 at 1430, For 1 dose, PACU (only) caffeine tablet 200 mg (COMPLETED) 1206 (Given - Provider: Steph Gallo RBetsy) 200 mg, oral, Once as needed, pre-op [...] 1211 (Medication Applied - Provider: Steph Gallo R.N.)3791 (Due: Medication Removed - Provider: Discharge Provider, [...]
--- OUTSIDE RECORDS SUMMARY | 2022-08-01 06:48 | XMS_ITS | Encounter Summary ---
:1965 Author Organization [facility] Address [address] [place] [address] Care Team Providers Name Role Phone Unavailable Primary Care Provider Unavailable Reason for Visit Outpatient (Routine) - Closed Specialty Diagnoses / Procedures Referred By Contact Refer red To Contact General Surgery Diagnoses Rhinosinusitis Chronic Jey Santana M.D. [facility] [address] [place] [phone] Referral ID Status Reason Start Date Expiration Date Visits Requ ested Visits Authorized [id number] Closed 11/08/2019 11/07/2020 1 1 Encounter Details Date Type Department Care Team Description 11/29/2019 Comprehensive Visit Preoperative Jey Santana M.D. [address] [place] [phone] Preanesthetic Medical Exam (Primary Dx); Evaluation Center in Lanre Carvajal M.D. [address] [place] [phone] Rhinosinusitis Chronic [place], [place] [address] [place] [phone] Social History Tobacco Use Types Packs/Day Years [...] you attend protestant or Patient refused 2021 christianity services? Do [...] Comments Blood Pressure 108/74 11/29/2019 12:45 PM DROP WORKER Pulse 104 11/29/2019 12:45 PM DROP WORKER Temperature 36.5 ??C (97.7 ??F) 11/29/2019 12:45 PM DROP WORKER Respiratory Rate - - Oxygen Saturation 96% 11/29/2019 12:45 PM DROP WORKER Inhaled Oxygen Concentration - - Weight 76.4 kg (168 lb 6.9 oz) 11/29/2019 12:45 PM DROP WORKER Height 151.7 cm (4' 11.72) 11/29/2019 12:45 PM DROP WORKER Body Mass Index 33.2 11/29/2019 12:45 PM DROP WORKER documented in this encounter H&P Notes Lanre Carvajal M.D. - 11/29/2019 12:45 PM CST Preoperative Medical Evaluation Patient Name: Angie Mosquera Age: 54 y.o. Date of : 1965 Patient [address]: [address] [place] [phone] Primary Care Provider: No primary care provider [...] #11 Patent Foramen Ovale (HCC) Noted on [id number]/ ECHO otherwise normal. I will not pursue anything further WORKER documented in this encounter Plan of Treatment Not on filedocumented as of this encounter Results Creatinine with Estimated GFR - for Lab Draw (11/29/2019 11:30 AM DROP WORKER) P athologist Signature Creatinine 0.98 0.59 - 11/29/2019 DTL 1.04 mg/dL 1:05 PM DROP WORKER eGFR-Non 65 >=60 11/29/2019 DTL Black/ mL/min/BSA 1:05 PM DROP WORKER Pakistani Comment: ----ADDITIONAL INFORMATION---- Estimated GFR calculated using the 2009 CKD_EPI creatinine equation. eGFR-Black/ 75 >=60 mL/min/BSA 2019 1:05 PM DROP WORKER DTL Comment: ----ADDITIONAL INFORMATION---- Estimated GFR calculated using the 2009 CKD_EPI creatinine equation. Specimen Anatomical Collection Method Collection Time Receive d Time (Source) Location / / Volume Laterality Blood (Blood, 11/29/2019 11:30 11/29/2019 Venous) AM DROP WORKER 11:50 AM DROP WORKER Miranda Collado APRN, C.N.P., M.S.N. LAB BLOOD ADD-ON Performing Organization Address City/State/ZIP Code Phon e Number [facility] - [address] [place], [place] [address] [facility] [place] [address] Laboratories-[facility] [address] documented in this encounter Visit Diagnoses Diagnosis Preanesthetic Medical Exam - Primary Rhinosinusitis Chronic documented in this encounter Additional Health Concerns Assessment Noted Time PHQ-9 Depression Total Score: 5 04/05/2019 8:00 AM CDT documented as of this encounter
--- OUTSIDE RECORDS SUMMARY | 2022-08-01 06:48 | XMS_ITS | Encounter Summary ---
:1965 Author Organization [facility] Address [address] [place] [address] Care Team Providers Name Role Phone Unavailable [...] you attend orthodoxy or Patient refused 2021 restorationism services? Do [...] 01/08/2020 3:15 Results for this EXAM PM SHREDDED FILLER CIGAR MAKER MACHINE procedure are i n the results section. documented in this encounter Results NOSE-Otorhinolaryngology Image Exam (01/08/2020 3:15 PM SHREDDED FILLER CIGAR MAKER MACHINE) Specimen (Source) Anatomical Collection Method Collection Time Re ceived Time Location / / Volume Laterality 01/08/2020 3:11 PM SHREDDED FILLER CIGAR MAKER MACHINE Narrative [facility]S - 01/08/2020 3:29 PM SHREDDED FILLER CIGAR MAKER MACHINE This order has been created and auto-finalized [...]
--- OUTSIDE RECORDS SUMMARY | 2022-08-01 06:48 | XMS_ITS | Encounter Summary ---
:1965 Author Organization [facility] Address [address] [place] [address] Care Team Providers Name Role Phone Unavailable Primary Care Provider Unavailable Encounter Details Date Type Department Care Team Description 11/29/2019 Hospital Encounter Department of Jey Santana, Rhinosi nusitis Chronic; Laboratory Medicine M.D. Preanesthetic Medical Exam and Pathology, [address] [place] [address] [facility] [address] [place] [phone] [place] [address] (Work) [place], [place] [phone] (Fax) [phone] Social History Tobacco Use Types Packs/Day Years [...] you attend methodist or Patient refused 2021 gnosticist services? Do [...] R esults for this DIFFERENTIAL, B AM MILK BOTTLING MACHINE OPERATOR procedure ar e in the results section. CREATININE WITH Routine 11/29/2019 11:30 Preanesthetic Medical Results for this EGFR, S/P AM MILK BOTTLING MACHINE OPERATOR Exam procedure are i n the results section. documented in this encounter Results Creatinine with Estimated GFR - for Lab Draw (11/29/2019 11:30 AM MILK BOTTLING MACHINE OPERATOR) P athologist Signature Creatinine 0.98 0.59 - 11/29/2019 DTL 1.04 mg/dL 1:05 PM MILK BOTTLING MACHINE OPERATOR eGFR-Non 65 >=60 11/29/2019 DTL Black/ mL/min/BSA 1:05 PM MILK BOTTLING MACHINE OPERATOR Vatican Citizen Comment: ----ADDITIONAL INFORMATION---- Estimated GFR calculated using the 2009 CKD_EPI creatinine equation. eGFR-Black/ 75 >=60 mL/min/BSA 2019 1:05 PM MILK BOTTLING MACHINE OPERATOR DTL Comment: ----ADDITIONAL INFORMATION---- Estimated GFR calculated using the 2009 CKD_EPI creatinine equation. Specimen Anatomical Collection Method Collection Time Receive d Time (Source) Location / / Volume Laterality Blood (Blood, 11/29/2019 11:30 11/29/2019 Venous) AM MILK BOTTLING MACHINE OPERATOR 11:50 AM MILK BOTTLING MACHINE OPERATOR Miranda Collado APRN C.N.P., M.S.N. LAB BLOOD ADD-ON Performing Organization Address City/State/[facility] Code Phon e Number [facility] - [address] [place] [phone] [facility] [place] [place] [address] Laboratories-[facility] [address] [facility] (ABNORMAL) CBC without Differential (11/29/2019 11:30 AM MILK BOTTLING MACHINE OPERATOR) Patholo gist Method Time Signature Hemoglobin 13.3 11.6 - 11/29/2019 DTL 15.0 g/dL 12:09 PM MILK BOTTLING MACHINE OPERATOR Hematocrit 40.6 35.5 - 11/29/2019 DTL 44.9 % 12:09 PM MILK BOTTLING MACHINE OPERATOR Erythrocytes 4.08 3.92 - 11/29/2019 DTL 5.13 12:09 PM MILK BOTTLING MACHINE OPERATOR x10(12)/L MCV 99.5 (H) 78.2 - 11/29/2019 DTL 97.9 fL 12:09 PM MILK BOTTLING MACHINE OPERATOR RBC Distrib Width 13.3 12.2 - 11/29/2019 DTL 16.1 % 12:09 PM MILK BOTTLING MACHINE OPERATOR Platelet Count 234 157 - 371 11/29/2019 DTL x10(9)/L 12:09 PM MILK BOTTLING MACHINE OPERATOR Leukocytes 5.8 3.4 - 9.6 11/29/2019 DTL x10(9)/L 12:09 PM MILK BOTTLING MACHINE OPERATOR Specimen Anatomical Collection Method Collection Time Receive d Time (Source) Location / / Volume Laterality Blood (Blood, 11/29/2019 11:30 11/29/2019 Venous) AM MILK BOTTLING MACHINE OPERATOR 11:50 AM MILK BOTTLING MACHINE OPERATOR Jey Santana M.D. LAB BLOOD ADD-ON Performing Organization Address City/State/ZIP Code Phon e Number [facility] - [address] [place], [place] [address] [facility] [place] [place] [address] Laboratories-[facility] [address] [facility] documented in this encounter Visit Diagnoses Diagnosis Rhinosinusitis Chronic Preanesthetic Medical Exam documented in this encounter Additional Health Concerns Assessment Noted Time PHQ-9 Depression Total Score: 5 04/05/2019 8:00 AM CDT documented as of this encounter
--- OUTSIDE RECORDS SUMMARY | 2022-08-01 06:48 | XMS_ITS | Encounter Summary ---
:1965 Author Organization [facility] Address [address] [place] [address] Care Team Providers Name Role Phone Unavailable Primary Care Provider Unavailable Encounter Details Date Type Department Care Team Description 10/09/2019 Orders Only Department of Otorhinolaryngology Alana Engel, in [facility] L[facility] [address] [place] [address] 200 [place] [address] [place], [place] [phone] Social History Tobacco Use Types Packs/Day Years [...] you attend congregation or Patient refused 2021 scientology services? Do [...]
--- OUTSIDE RECORDS SUMMARY | 2022-08-01 06:48 | XMS_ITS | Encounter Summary ---
:1965 Author Organization [facility] Address [address] [place] [address] Care Team Providers Name Role Phone Unavailable Primary Care Provider Unavailable Reason for Visit Reason Onset Date Comments Patient wants letter and notes sent to physician in 10/03/[address] [facility] Encounter Details Date Type Department Care Team Description 10/03/2019 Clinical Communication Department of Robert Diehl Neurology in L, M.DBritton letter and notes [address] sent to physician [place], [place] in [facility] ( [address] [place] [address] Robert Diehl) [place], [place] [phone] [phone] (Work) [phone] Social History Tobacco Use Types Packs/Day Years [...] you attend presybeterian or Patient refused 2021 mormonism services? Do [...] 3:55 PM CST As per documentation in [facility] on 09/04, a letter has been sent to Dr. Blackwell with the patient's notes from her most recent visit. TECHNOLOGIST documented in this encounter Plan of Treatment Not on filedocumented as of this encounter Visit Diagnoses Not on filedocumented in this encounter Additional Health Concerns Assessment Noted Time PHQ-9 Depression Total Score: 5 04/05/2019 8:00 AM CDT documented as of this encounter
--- OUTSIDE RECORDS SUMMARY | 2022-08-01 06:48 | XMS_ITS | Encounter Summary ---
:1965 Author Organization [facility] Address [address] [place] [address] Care Team Providers Name Role Phone Unavailable Primary Care Provider Unavailable Reason for Visit Reason Onset Date Comments Schedule Surgery 10/05/2019 Encounter Details Date Type Department Care Team Description 10/05/2019 Clinical Department of [place], Schedule Surge ry Communication Otorhinolaryngology in [place], [place] Lil[place] 200 [facility] [address] [place] [phone] [place] [address] Social History Tobacco Use Types Packs/Day Years [...] you attend religious or Patient refused 2021 latter day services? [...] Kaykay Murphy R.N. - 10/17/2019 8:10 AM COMPUTER NUMERICAL CONTROL PROGRAMMER Pt has return appt with EKO on 10/23 UTER NUMERICAL CONTROL PROGRAMMER Telephone Encounter - Alana Engel L.P.NBritton - 10/09/2019 2:49 PM CST Note sent to DR. Olmedo and patient's Neurology team to discuss clearance for surgery. Desk is scheduling a return for the patient ot discuss surgery. UTER NUMERICAL CONTROL PROGRAMMER Telephone Encounter - Alana Engel L.P.N. - [...] following references were used: provider Dr. Olmedo UTER NUMERICAL CONTROL PROGRAMMER Telephone Encounter - Zoey Lipscomb - 10/05/2019 [...] surgical date. She can be reached at [phone]. UTER NUMERICAL CONTROL PROGRAMMER documented in this encounter Plan of Treatment Not on filedocumented as of this encounter Visit Diagnoses Not on filedocumented in this encounter Additional Health Concerns Assessment Noted Time PHQ-9 Depression Total Score: 5 04/05/2019 8:00 AM CDT documented as of this encounter
--- OUTSIDE RECORDS SUMMARY | 2022-08-01 06:48 | XMS_ITS | Encounter Summary ---
:1965 Author Organization [facility] Address [address] [place] [address] Care Team Providers Name Role Phone Unavailable Primary Care Provider Unavailable Reason for Referral Outpatient (Routine) - Closed Specialty Diagnoses / Procedures Referred By Contact Refer red To Contact Otorhinolaryngology Darlin Olmedo M.D . [address] [phone] Referral ID Status Reason Start Date Expiration Date Visits Requ ested Visits Authorized [id number] Closed 12/18/2019 12/17/2020 1 1 E ADJUSTER Reason for Visit Outpatient (Routine) - Closed Specialty Diagnoses / Procedures Referred By Contact Refer red To Contact Otorhinolaryngology Darlin Olmedo M.D . [address] [phone] Referral ID Status Reason Start Date Expiration Date Visits Requ ested Visits Authorized [id number] Closed 11/29/2019 11/28/2020 1 1 Encounter Details Date Type Department Care Team Description 12/18/2019 Office Visit Department of Darlin Olmedo Mucocele Nasa l Sinus Otorhinolaryngology jimmy Brumfield M.D. (Primary Dx) [address] [place] [phone] Social History Tobacco Use Types Packs/Day Years [...] you attend samaritan or Patient refused 2021 judaism services? Do [...] we will refer to neurology headache clinic. E ADJUSTER documented in this encounter Plan of Treatment [...]
--- OUTSIDE RECORDS SUMMARY | 2022-08-01 06:48 | XMS_ITS | Encounter Summary ---
:1965 Author Organization [facility] Address [address] [place] [address] Care Team Providers Name Role Phone Unavailable Primary Care Provider Unavailable Encounter Details Date Type Department Care Team Description 08/05/2020 Clinical Communication Department of [place], Otorhinolaryngology in [place], [place] [address] [place], [place] [phone] [facility] [phone] [place] [phone] Social History Tobacco Use Types Packs/Day Years [...] you attend mandaen or Patient refused 2021 buddhist services? Do [...] called patient to schedule COVID testing at [place] prior to appointment. Didn't answer so jessica [...]
--- OUTSIDE RECORDS SUMMARY | 2022-08-01 06:48 | XMS_ITS | Encounter Summary ---
:1965 Author Organization [facility] Address [address] [place] [address] Care Team Providers Name Role Phone Unavailable Primary Care Provider Unavailable Reason for Visit Reason Onset Date Comments Medication Question 01/08/2020 Encounter Details Date Type Department Care Team Description 01/08/2020 Clinical Department of [place], Medication Communication Otorhinolaryngology in [place], [place] Lilian [address] [place] [address] [place] [phone] [place] [address] Social History Tobacco Use Types Packs/Day Years [...] you attend mu-ism or Patient refused 2021 islam services? Do [...] not covered. Patient will do regular Flonase ISH AS A SECOND LANGUAGE TEACHER Telephone Encounter - Donna Martines - 01/08/2020 4:21 PM CST [facility] called about the Fluticasone Propionate (Flonase) prescription that was put through today. The insurance will not cover it because at the end of the SIG it says Sensimist. Please call the pharmacy at [phone], or place another order. Thank you, Donna ISH AS A SECOND LANGUAGE TEACHER documented in this encounter Plan of Treatment Not on filedocumented as of this encounter Visit Diagnoses Not on filedocumented in this encounter Additional Health Concerns Assessment Noted Time PHQ-9 Depression Total Score: 5 04/05/2019 8:00 AM CDT documented as of this encounter
--- OUTSIDE RECORDS SUMMARY | 2022-08-01 06:49 | XMS_ITS | Encounter Summary ---
:1965 Author Organization [facility] Address [address] [place] [address] Care Team Providers Name Role Phone Unavailable Primary Care Provider Unavailable Reason for Visit Reason Onset Date Comments Nicotine Dependence 04/26/2019 Encounter Details Date Type Department Care Team Description 04/26/2019 Clinical Department of Tesfaye Ortega, Nicotine Janet grady Communication Nicotine Kenna D, Dependence, Jordy Alex, [facility], in [place], [place] [address] [place] [address] Social History Tobacco Use Types Packs/Day Years [...] you attend moravian or Patient refused 2021 yarsani services? Do [...]
--- OUTSIDE RECORDS SUMMARY | 2022-08-01 06:49 | XMS_ITS | Encounter Summary ---
:1965 Author Organization [facility] Address [address] [place] [address] Care Team Providers Name Role Phone Unavailable Primary Care Provider Unavailable Encounter Details Date Type Department Care Team Description 09/03/2019 Documentation Department of Neurology in Robert Fontanez M.D. [place], [place] 200 [facility] 200 [place] [phone] [phone] (Wo rk) Social History Tobacco Use Types [...] you attend scientologist or Patient refused 2021 congregational services? Do [...]
--- OUTSIDE RECORDS SUMMARY | 2022-08-01 06:49 | XMS_ITS | Encounter Summary ---
:1965 Author Organization [facility] Address [address] [place] [address] Care Team Providers Name Role Phone Unavailable Primary Care Provider Unavailable Encounter Details Date Type Department Care Team Description 10/02/2019 Orders Only Department of Robert Diehl Thrombosi s Arterial Neurology in [place] ([facility]) (Primary Dx) [place], [place] [address] [place] [address] [address] [place] [phone] Social History Tobacco Use Types Packs/Day Years [...] you attend methodist or Patient refused 2021 sikhism services? Do [...] of Outside MR Neck (10/02/2019 1:01 PM INSIDE [employer]S SALES) Anatomical Region Laterality Modality Neuroradiology RST LOS, Neuroradiology ARZ LOS, N/A Magnetic Resonance Neuroradiology FLA LOS, Neck Specimen (Source) Anatomical Collection Method Collection Time Re ceived Time Location / / Volume Laterality 10/02/2019 1:03 PM [employer] Impressions 10/02/2019 1:18 PM [employer] Similar appearance of the distal right vertebral artery irregularity and mild narrowing at C1, r elated to the nonocclusive luminal thrombus, as seen on the prior CTA exams . MRA neck otherwise negative and unchanged. Narrative 10/02/2019 1:18 PM INSIDE [employer]S SALES EXAM: ??INTERPRETATION OF OUTSIDE MR NECK COMPARISON: [...]
--- OUTSIDE RECORDS SUMMARY | 2022-08-01 06:49 | XMS_ITS | Encounter Summary ---
:1965 Author Organization [facility] Address [address] [place] [address] Care Team Providers Name Role Phone Unavailable Primary Care Provider Unavailable Reason for Visit Reason Onset Date Comments Telephone call 04/24/2019 [facility] Encounter Details Date Type Department Care Team Description 04/24/2019 Clinical Communication Department of Blanca, Tele phone call Neurology in Nan Bose M.D. ([facility]) [place], [facility] [place], [place] [address] [place] [id number] [place], [place] [phone] (Work) [phone] Social History Tobacco Use Types Packs/Day Years [...] you attend taoism or Patient refused 2021 confucianist services? Do [...] The patient contacted Dr. Henry's office at [facility] for a PFO closure. Depending on your answer would decide if the patient was a candidate for PFO closure. They read your 04/04/18 hospital summary in [facility], but the answer is unclear. Their fax is [phone]. thanks documented in this encounter Plan of Treatment Not on filedocumented as of this encounter Visit Diagnoses Not on filedocumented in this encounter Additional Health Concerns Assessment Noted Time PHQ-9 Depression Total Score: 5 04/05/2019 8:00 AM CDT documented as of this encounter
--- OUTSIDE RECORDS SUMMARY | 2022-08-01 06:49 | XMS_ITS | Encounter Summary ---
:1965 Author Organization [facility] Address [address] [place] [address] Care Team Providers Name Role Phone Unavailable Primary Care Provider Unavailable Reason for Visit Reason Onset Date Comments wants to have MRI done closer to home before appt 09/03/2019 [facility] Encounter Details Date Type Department Care Team Description 09/03/2019 Clinical Communication Department of [facility] Robert cabrera nts to have MRI Neurology in [place], [place] done closer to home [place], [facility] before appt [place], [place] ([facility]) [address] [facility] [address] [place], [place] [phone] (Work) [phone] Social History Tobacco Use Types Packs/Day Years [...] you attend evangelical or Patient refused 2021 jainism services? Do [...] for MRA faxed to Dr. Blackwell at [facility] at fax [phone]. Called the patient and left a message [...] like to have her MRI done at [facility] before her appointment with Dr. Diehl on 09/19. Or if she could get her MRI scheduled for the same day as she is here for her appointment. She doesn't want to drive 2 days in a row. She wanted the order sent to Dr. Blackwell so I guess just send notes to Dr. Clemente Blackwell at [facility] Phone- [phone] documented in this encounter Plan of Treatment Not on filedocumented as of this encounter Visit Diagnoses Not on filedocumented in this encounter Additional Health Concerns Assessment Noted Time PHQ-9 Depression Total Score: 5 04/05/2019 8:00 AM CDT documented as of this encounter
--- OUTSIDE RECORDS SUMMARY | 2022-08-01 06:49 | XMS_ITS | Encounter Summary ---
:1965 Author Organization [facility] Address [address] [place] [address] Care Team Providers Name Role Phone Unavailable Primary Care Provider Unavailable Encounter Details Date Type Department Care Team Description 10/02/2019 Ancillary Procedure Department of Robert Diehl Arterial Radiology jimmy Celaya M.D. ([facility]) [place], [place] [address] [place] [address] [address] [place] [phone] Social History Tobacco Use Types Packs/Day Years [...] you attend christianity or Patient refused 2021 shinto services? Do [...] Robert Diehl M.D. - 10/02/2019 3:20 PM ELECTRICAL CONTRACTOR ASSISTANT AUDITOR: Would you please give the patient a [...] artery finding and the left paraclinoid aneurysm. TRICAL CONTRACTOR documented in this encounter Plan of Treatment Not on filedocumented as of this encounter Procedures Procedure Name Priority Date/Time Associated Comments Diagnosis INTERPRETATION OF RAD - Routine 10/02/2019 1:01 Thrombosis Result s for OUTSIDE MR NECK (most inpatients PM ELECTRICAL CONTRACTOR Arterial (HCC) this p rocedure and all are in the outpatients) results section. documented in this encounter Results Interpretation of Outside MR Neck (10/02/2019 1:01 PM ELECTRICAL CONTRACTOR) Anatomical Region Laterality Modality Neuroradiology RST LOS, Neuroradiology ARZ LOS, N/A Magnetic Resonance Neuroradiology FLA LOS, Neck Specimen (Source) Anatomical Collection Method Collection Time Re ceived Time Location / / Volume Laterality 10/02/2019 1:03 PM ELECTRICAL CONTRACTOR Impressions 10/02/2019 1:18 PM ELECTRICAL CONTRACTOR Similar appearance of the distal right vertebral artery irregularity and mild narrowing at C1, r elated to the nonocclusive luminal thrombus, as seen on the prior CTA exams . MRA neck otherwise negative and unchanged. Narrative 10/02/2019 1:18 PM ELECTRICAL CONTRACTOR EXAM: ??INTERPRETATION OF OUTSIDE MR NECK COMPARISON: [...]
--- OUTSIDE RECORDS SUMMARY | 2022-08-01 06:49 | XMS_ITS | Encounter Summary ---
:1965 Author Organization [facility] Address [address] [place] [id number] Care Team Providers Name Role Phone Unavailable Primary Care Provider Unavailable Encounter Details Date Type Department Care Team Description 04/04/2019 - Hospital Encounter [facility] Blanca, Stroke (H CC) (Primary Dx); 04/05/2019 [facility] M.D. Decline Functional Status; [facility], [address] [place] [address] Second floor [phone] [place] [address] [place], [place] (Work) [phone] Social History Tobacco Use [...] you attend muslim or Patient refused 2021 mormon services? Do [...] up with your primary care provider in [place], [place] for ongoing monitoring of this. - Follow-up in [facility] (Dr. Diehl) in approximately 3 months??? [...] use disorder who initially was admitted to [facility] from 03/29/2019 to 03/31/2019 after presenting [...] use disorder who initially was admitted to [facility] from 03/29/2019 to 03/31/2019 after presenting [...] up with your primary care provider in [place], [place] for ongoing monitoring of this. - Follow-up in [facility] (Dr. Diehl) in approximately 3 months??? [...] only on level surfaces with therapist managing shelter monitor while inpatient. Stairs not assessed. RECOMMENDATIONS: [...] by Jessie Candelario P.T., D.P.T. Contact information: [facility], [address] Beryl Gaytan, Laquita Guardado - 04/05/2019 7:21 AM CDT Take a copy of this after visit summary to your appointment(s). [place], [place] April 10, 2019 -Tuesday --11:15 AM - Hospital Follow-Up with Dr. Rosalva MD Colleague of Juana Franz MD primary care provider, at [facility] RECOMMENDATIONS: * * [facility] You may have outpatient appointments at [facility] that changed during your hospitalization. Refer to your [facility] Patient Visit Guide (PVG) for the most current schedule of appointments and detailed instructions of tests/procedures. Call [phone], if you did not receive an PVG or need to CANCEL any [facility] appointment(s). You were discharged from the Neurology [...] mg by mouth 0 02/02/2021 every morning. cholecalciferol (VITAMIN Take 125 mcg by 0 06/25/2022 D3) 125 mcg (5,000 Unit) mouth every tablet morning. cyanocobalamin, vitamin Place 2,500 mcg 3 [...] No acute overnight events. Vertigo has improved. Ybuo-zx-uyoytuit headache continues. No new symptoms or concerns. [...] NIHSS Total: 0 I/O / 0701 - 05/08 0700 05/08 0701 - / 0700 05/ 0701 - / 0700 Crystalloid Bolus 2.5 Total Intake 2.5 [...] use disorder who initially was admitted to [facility] from 03/29/2019 to 03/31/2019 after presenting [...] previous admission. BILLING: #1 Stroke (HCC) Catalina Panchal RBrittonN. - 04/05/2019 12:27 PM CDT I attempted [...] disposition: Home with possible HHC Akash Torrez, PharmBrittonD., R.Ph. - 04/04/2019 7:58 PM CDT Warfarin [...] being followed by a provider at the [facility]. Dose was increased to 1.5 tabs (of 5 mg) on Monday 04/02. Her INR is 1.8 today. Will continue 7.5 mg tonight. Pharmacist team will continue to follow patient's clinical progress daily until discharge from the hospital. Coby Limon, Pharm.D., R.Ph. documented in this encounter H&P Notes Nan Rios M.D. - 04/05/2019 1:42 PM CDT .. SUBJECTIVE CHIEF COMPLAINT / REASON FOR VISIT Stroke/TIA HISTORY OF PRESENT ILLNESS Ms.??Angie Ashley DuvallDemetri??is a 53 y.o.??female??with PMH including gastric bypass [...] Noted ??? Rhinosinusitis Chronic 03/01/2019 ??? Stroke ([facility]) 03/29/2019 ??? Anxiety Generalized Disorder 03/29/2019 ??? Chronic Pain Syndrome 03/29/2019 ??? Fibromyalgia 03/29/2019 ??? 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 Sinusitis Recurrent 03/29/2019 ??? 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 Nicotine Dependence Cigarettes 03/29/2019 ??? 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 Transient Ischemic Attack ??? Aneurysm Cerebral Unruptured ([facility]) 03/30/2019 ??? Patent Foramen Ovale ([facility]) 03/31/2019 Current Facility-Administered Medications: ??? acetaminophen tablet 1,000 mg (TYLENOL), 1,000 mg, oral, Q6H, Beau Hall M.D., 1,000 mg at 04/05/19 0831 ??? albuterol 90 mcg/actuation inhaler 2 puff (PROVENTIL HFA,VENTOLIN HFA), 2 puff, inhalation, Q6H PRN, AbarbanelClemente M.D. ??? albuterol nebulizer solution 2.5 mg (ACCUNEB), 2.5 mg, nebulization, Q6H PRN, Juan AntoniorbanelClemente M.D. ??? alum-mag hydroxide-simeth 200-200-20 mg/5 mL suspension 30 mL (MAALOX), 30 mL, oral, Q4H PRN, AbaClemente brown M.D. ??? atorvastatin tablet 40 mg (LIPITOR), 40 mg, oral, Daily at bedtime, Clemente Aiken M.D., 40mg at 04/04/19 2158 ??? benzonatate capsule 200 mg (TESSALON PERLES), [...] bedtime, Clemente Aiken M.D., 2 spray at 04/04/19 2209 ??? folic acid tablet 800 mcg, 800 mcg, oral, Daily, Clemente Aiken M.D., 800 mcg at 04/05/19 0832 ??? furosemide tablet 40 mg (LASIX), 40 mg, oral, BID, AlpeshaneClemente howard M.D., 40 mg at 04/05/19 ??? lamoTRIgine tablet 200 mg (LaMICtal), 200 mg, oral, BID, Clemente Aiken M.D., 200 mg at ??? lidocaine 5 % 1 patch (LIDODERM), 1 patch, transdermal, Daily, AlpeshaneClemente howard M.D., 1 patch ??? LORazepam tablet 0.5 [...] mg (ROXICODONE), 5 mg, oral, 5x Daily, AlpeshaneClemente howard M.D., 5 mg ??? pantoprazole DR tablet [...] no new changes. MRI may not change coordinator at this point as she is now [...] 0 and symmetric in all muscle groups. Kaoani-coji-hvsndp and heel- montes testing is normal. Deep [...] obesity ASSESSMENT / PLAN #1 Stroke (HCC) ??Angie Mosquera??is a 53 y.o.??female??with PMH including gastric [...] clarify this, but would not necessarily change coordinator. An MRI brain with and without contrast [...] baseline. Have triaged to therapy only; no commercial collections specialist consult appears to be necessary at this time. If at any time, the therapists or referring service feel that a commercial collections specialist review is necessary, please send a new [...] Prior Function / Occupational Profile Level of Mason: Independent with ADLs and functional transfers Lives [...] Goal Met 04/05/19 Progress: Improving as expected @[id number]([id number])@ Plan Patient agrees with the plan of [...] Prior Function / Occupational Profile Level of Mason: Independent with ADLs and functional transfers Lives [...] for safety and for therapist to bring shelter monitor, no obvious loss of balance noted, patient appeared steady with quick turns Training/Intervention: supervision for therapist to bring shelter monitor Response: Patient mobilizing 200+ meters with [...] for safety and for therapist to bring shelter monitor, no obvious loss of balance noted, patient appeared steady with quick turns Training/Intervention: supervision for therapist to bring shelter monitor Response: Patient mobilizing 200+ meters with [...] min Functional G-code Worksheet Jessie Candelario P.T., D.P.TBritton documented in this encounter Nursing Notes Dia [...] use disorder who initially was admitted to [facility] from 03/29/2019 to 03/31/2019 after presenting [...] Basic Metabolic Panel (04/05/2019 8:07 AM CDT) Analysis Performed At Patho logist Time Signature Potassium, S 4.1 3.6 - 5.2 04/05/2019 [facility] mmol/L 9:28 AM CDT [facility]ATOR[facility] - [facility] Sodium, S 142 135 - 145 04/05/2019 [facility] mmol/L 9:28 AM CDT [facility] - [facility] Chloride, S 105 98 - 107 04/05/2019 [facility] mmol/L 9:28 AM CDT [facility] Bicarbonate, S 25 22 - 29 04/05/2019 [facility] mmol/L 9:28 AM CDT [facility] Anion Gap 12 7 - 15 04/05/2019 [facility] 9:28 AM CDT [facility] - [facility] BUN (Blood Urea 20 6 - 21 04/05/2019 [facility] Nitrogen), S mg/dL 9:28 AM CDT [facility] Creatinine 0.88 0.59 - 04/05/2019 [facility] 1.04 mg/dL 9:[address] [facility] eGFR-Non 74 >=60 04/05/2019 [facility] Black/ mL/min/BSA 9:[address] Comment: ----ADDITIONAL INFORMATION---- Estimated GFR calculated using the 2009 CKD_EPI creatinine equation. eGFR-Black/ 86 >=60 mL/min/BSA 04/05/2019 9:28 [facility] CDT [facility] Comment: ----ADDITIONAL INFORMATION---- Estimated GFR calculated using the 2009 CKD_EPI creatinine equation. Calcium, Total, S 9.2 8.6 - 10.0 mg/dL 04/05/2019 9:28 AM [facility] Glucose, S 124 70 - 140 mg/dL 04/05/2019 9:28 AM [facility] CDT [facility] Specimen Anatomical Collection Method Collection Time Receive d Time (Source) Location / / Volume Laterality Blood (Blood, 04/05/2019 8:07 AM 04/05/20 19 8:26 Venous) CDT AM CDT Clemente Aiken M.D. LAB BLOOD ADD-ON Performing Organization Address City/State/ZIP Code Phon e Number [facility] LABORATORIES - [address] [place] [address] [facility] CBC with Differential, Blood (04/05/2019 8:07 AM CDT) [facility] Method Time Signature Hemoglobin 12.9 11.6 - 04/05/2019 [facility] 15.0 g/dL 8:[address] [facility] Hematocrit 38.0 35.5 - 04/05/2019 [facility] 44.9 % 8:[address] [facility] Erythrocytes 3.94 3.92 - 04/05/2019 [facility] 5.13 8:38 AM CDT LABORATORIES - x10(12)/L [facility] MCV 96.4 78.2 - 04/05/2019 [facility] 97.9 fL 8:[address] [facility] RBC Distrib Width 13.2 12.2 - 04/05/2019 [facility] 16.1 % 8:38 AM CDT [facility] Platelet Count 226 157 - 371 04/05/2019 [facility] x10(9)/L 8:38 AM CDT [facility] - [facility] Leukocytes 5.5 3.4 - 9.6 04/05/2019 [facility] x10(9)/L 8:38 AM CDT [facility] - [facility] Neutrophils 3.00 1.56 - 04/05/2019 [facility] 6.45 8:38 AM CDT LABORATORIES - x10(9)/L [facility] Lymphocytes 1.84 0.95 - 04/05/2019 [facility] 3.07 8:38 AM CDT LABORATORIES - x10(9)/L [facility] Monocytes 0.37 0.26 - 04/05/2019 [facility] 0.81 8:38 AM CDT LABORATORIES - x10(9)/L [facility] Eosinophils 0.22 0.03 - 04/05/2019 [facility] 0.48 8:38 AM CDT LABORATORIES - x10(9)/L [facility] Basophils 0.05 0.01 - 04/05/2019 [facility] 0.08 8:38 AM CDT LABORATORIES - x10(9)/L [facility] Specimen Anatomical Collection Method Collection Time Receive d Time (Source) Location / / Volume Laterality Blood (Blood, 04/05/2019 8:07 AM 04/05/20 19 8:26 Venous) CDT AM CDT Clemente Aiken M.D. LAB BLOOD ADD-ON Performing Organization Address City/State/ZIP Code Phon e Number [facility] LABORATORIES - [address] [place], [place] [address] [facility] (ABNORMAL) Prothrombin Time (PT/INR) (04/05/2019 8:07 AM CDT) [facility] gist Method Time Signature Prothrombin 21.9 (H) 9.4 - 04/05/2019 [facility] Time, P 12.5 sec 8:[address] [facility] INR 2.0 0.9 - 1.1 04/05/2019 [facility] 8:[address] [facility] Comment: ----ADDITIONAL INFORMATION---- Standard intensity warfarin therapeutic range: 2.0 to 3.0 ?? High intensity warfarin therapeutic rang e: 2.5 to 3.5 Specimen Anatomical Collection Method Collection Time Receive d Time (Source) Location / / Volume Laterality Blood (Blood, 04/05/2019 8:07 AM 04/05/20 8:26 Venous) CDT AM CDT Clemente Aiken M.D. LAB BLOOD ADD-ON Performing Organization Address City/State/ZIP Code Phon e Number [facility]ATORIES - [address] [place], [place] [address] [facility] CT Head Neck Angiogram with IV [...] CDT) athologist Signature Heparin 0.81 IU/mL 04/04/2019 [facility] Anti-Xa, P 7:40 PM CDT [facility] - [facility] Comment: UFH therapeutic range: ?? 0.30-0.70 [...] LAB BLOOD NON ADD-ON Performing Organization Address [facility] Phon e Number [facility] LABORATORIES - [address] [place], [place] [address] [facility] (ABNORMAL) Prothrombin Time (PT/INR) (04/04/2019 5:25 PM CDT) [facility] [employer] Method Time Signature Prothrombin 20.1 (H) 9.4 - 04/04/2019 [facility] Time, P 12.5 sec 5:[address] [facility] INR 1.8 0.9 - 1.1 04/04/2019 [facility] 5:54 PM CDT [facility] - [facility] Comment: ----ADDITIONAL INFORMATION---- Standard intensity warfarin therapeutic range: 2.0 to 3.0 ?? High intensity warfarin therapeutic rang e: 2.5 to 3.5 Specimen Anatomical Collection Method Collection Time Receive d Time (Source) Location / / Volume Laterality Blood (Blood, 04/04/2019 5:25 PM 04/04/20 19 5:32 Venous) CDT PM CDT Clemente Aiken M.D. LAB BLOOD ADD-ON Performing Organization Address [facility] Phon e Number [facility]ORATORIES - [address] [place] [address] [facility] (ABNORMAL) CBC with Differential, Blood (04/04/2019 5:25 PM CDT) [facility] [employer] Method Time Signature Hemoglobin 12.1 11.6 - 04/04/2019 [facility] 15.0 g/dL 5:35 PM CDT [facility] Hematocrit 36.3 35.5 - 04/04/2019 [facility] 44.9 % 5:35 PM CDT [facility] Erythrocytes 3.76 (L) 3.92 - 04/04/2019 [facility] 5.13 5:35 PM CDT LABORATORIES - x10(12)/L [facility] MCV 96.5 78.2 - 04/04/2019 [facility] 97.9 fL 5:35 PM CDT [facility]ATOR[facility] - [facility] RBC Distrib 12.9 12.2 - 04/04/2019 [facility] Width 16.1 % 5:35 PM CDT [facility]ATOR[facility] - [facility] Platelet Count 224 157 - 371 04/04/2019 [facility] x10(9)/L 5:35 PM CDT [facility] - [facility] Leukocytes 4.6 3.4 - 9.6 04/04/2019 [facility] x10(9)/L 5:35 PM CDT [facility] - [facility] Neutrophils 2.09 1.56 - 04/04/2019 [facility] 6.45 5:35 PM CDT LABORATORIES - x10(9)/L [facility] Lymphocytes 1.88 0.95 - 04/04/2019 [facility] 3.07 5:35 PM CDT LABORATORIES - x10(9)/L [facility] Monocytes 0.39 0.26 - 04/04/2019 [facility] 0.81 5:35 PM CDT LABORATORIES - x10(9)/L [facility] Eosinophils 0.18 0.03 - 04/04/2019 [facility] 0.48 5:35 PM CDT LABORATORIES - x10(9)/L [facility] Basophils 0.04 0.01 - 04/04/2019 [facility] 0.08 5:35 PM CDT LABORATORIES - x10(9)/L [facility] Specimen Anatomical Collection Method Collection Time Receive d Time (Source) Location / / Volume Laterality Blood (Blood, 04/04/2019 5:25 PM 04/04/20 19 5:32 Venous) CDT PM CDT Clemente Aiken M.D. LAB BLOOD ADD-ON Performing Organization Address City/State/ZIP Code Phon e Number [facility] LAB[facility]ATORIES - [address] [place], [place] [address] [facility] (ABNORMAL) APTT (Activated Partial Thromboplastin Time) (04/04/2019 5:25 PM CDT) Analysis Performed At Patho logist Time Signature Activated 44 (H) 25 - 37 04/04/2019 [facility] Partial sec 5:57 PM CDT LABORATORIES - [facility] Specimen Anatomical Collection Method Collection Time Receive d Time (Source) Location / / Volume Laterality Blood (Blood, 04/04/2019 5:25 PM 04/04/20 19 5:32 Venous) CDT PM CDT Clemente Aiken M.D. LAB BLOOD ADD-ON Performing Organization Address City/[facility]/ZIP Code Phon e Number [facility]ATORIES - [address] [place] [address] [facility] Magnesium (04/04/2019 5:25 PM CDT) P athologist Signature Magnesium, S 2.3 1.7 - 2.3 04/04/2019 [facility] mg/dL 6:21 PM CDT LABORATORIES - [facility] Specimen Anatomical Collection Method Collection Time Receive d Time (Source) Location / / Volume Laterality Blood (Blood, 04/04/2019 5:25 PM 04/04/20 19 5:40 Venous) CDT PM CDT Clemente Aiken M.D. LAB BLOOD ADD-ON Performing Organization Address City/[facility]/ZIP Code Phon e Number [facility]ATORIES - [address] [place] [address] [facility] Phosphorus Inorganic (04/04/2019 5:25 PM CDT) Analysis Performed At Patho logist Time Signature Phosphorus 3.8 2.5 - 4.5 04/04/2019 [facility] (Inorganic), S mg/dL 6:21 PM CDT [facility]ATOR[facility] - [facility] Specimen Anatomical Collection Method Collection Time Receive d Time (Source) Location / / Volume Laterality Blood (Blood, 04/04/2019 5:25 PM 04/04/20 19 5:40 Venous) CDT PM CDT Clemente Aiken M.D. LAB BLOOD ADD-ON Performing Organization Address City/[facility]/ZIP Code Phon e Number [facility]IES - [address] [place], [place] [address] [facility] (ABNORMAL) Comprehensive Metabolic Panel (04/04/2019 5:25 PM CDT) Patholo gist Method Time Signature Potassium, S 3.5 (L) 3.6 - 5.2 04/04/2019 [facility] mmol/L 6:[address] [facility] Sodium, S 141 135 - 145 04/04/2019 [facility] mmol/L 6:21 PM CDT [facility] - [facility] Chloride, S 105 98 - 107 04/04/2019 [facility] mmol/L 6:21 PM CDT [facility] - [facility] Bicarbonate, S 23 22 - 29 04/04/2019 [facility] mmol/L 6:21 CDT [facility] - [facility] Anion Gap 13 7 - 15 04/04/2019 [facility] 6:21 PM CDT [facility] - [facility] BUN (Blood Urea 20 6 - 21 04/04/2019 [facility] Nitrogen), S mg/dL 6:21 PM CDT [facility] - [facility] Creatinine 0.90 0.59 - 04/04/2019 [facility] 1.04 6:21 CDT LABORATORIES - mg/dL [facility] eGFR-Non 72 >=60 04/04/2019 [facility] Black/ mL/min/BS 6:21 CDT LABORATORIES - [place] [facility] Comment: ----ADDITIONAL INFORMATION---- Estimated GFR calculated using the 2009 CKD_EPI creatinine equation. eGFR-Black/ 83 >=60 mL/min/BSA 04/04/2019 6:21 [facility] [place] CDT [facility]ATOR[facility] - [facility] Comment: ----ADDITIONAL INFORMATION---- Estimated GFR calculated using the 2009 CKD_EPI creatinine equation. Calcium, Total, S 8.6 8.6 - 10.0 04/04/2019 6:21 [facility] mg/dL CDT [facility] Glucose, S 96 70 - 140 04/04/2019 6:21 [facility] mg/dL CDT [facility] Protein, Total, S 6.2 (L) 6.3 - 7.9 04/04/2019 6:21 [facility] g/dL CDT [facility] Albumin, S 4.1 3.5 - 5.0 04/04/2019 6:21 [facility] g/dL PM CDT [facility] Aspartate 21 8 - 43 U/L 04/04/2019 6:21 [facility] Aminotransferase (AST), CDT LABORA TORIES - S [facility] Alkaline Phosphatase, S 73 35 - 104 U/L 04/04/2019 6: 21 [facility] CDT [facility] Alanine Aminotransferase 14 7 - 45 U/L 04/04/2019 6:2 [facility] (ALT), S PM CDT LABORATORIES - [facility] Bilirubin, Total, S 0.2 <=1.2 mg/dL 04/04/2019 6:21 [facility] PM CDT LABORATORIES - [facility] Specimen Anatomical Collection Method Collection Time Receive d Time (Source) Location / / Volume Laterality Blood (Blood, 04/04/2019 5:25 PM 04/04/20 19 5:40 Venous) CDT PM CDT Clemente Aiken M.D. LAB BLOOD ADD-ON Performing Organization Address City/State/ZIP Code Phon e Number [facility]ATORIES - [address] [place], [place] [address] [facility] documented in this encounter Visit Diagnoses [...] at 0800 atorvastatin tablet 40 mg (LIPITOR) 2158 (Given - Provider: Beryl Cleary R.N.) 40 mg, oral, Daily at bedtime, First dose on Tue04/04/19 at 2100 cetirizine tablet 10 mg (ZyrTEC) 2157 (Given - P rovider: Beryl Cleary R.N.) [...] g/actuation inhaler 1 puff (BREO ELLIPTA DISKUS) 933 (Given - Provid er: Tyler Naik R.N.) [...] mg (LYRICA) 0840 (Given - Provider: Dia R Rivera, R.N.) 150 mg, oral, Daily, First dose on Clementine 04/05/19 at 0900 pregabalin capsule 450 mg (LYRICA) 2206 (Given - Provider: Beryl Cleary R.N.) 450 [...] 1 dose zonisamide capsule 300 mg (ZONEGRAN) 215 8 (Given - Provider: Beryl Cleary R.N.) 0836 [...] 2 times daily PRN, anxiety, Starting on Tue04/05/19 at 0950 diphenhydrAMINE capsule 25 mg (BENADRYL) 25 mg, oral, Bedtime PRN, sleep, Starting Tue04/04/19 at 1646 iohexol 350 mg iodine/mL solution 1-200 mL (OMNIPAQUE) (COMP LETED) 1930 (Given - Provider: Kiara Curry R.N., CRN - Comment: LOT# [id number]) 1-200 mL, intravenous, Once in imaging, contrast, [...] g, oral, Bedtime PRN, constipation, S tarting 04/04/19 at 1651, 17 g = 1 heaping [...]
--- OUTSIDE RECORDS SUMMARY | 2022-08-01 06:49 | XMS_ITS | Encounter Summary ---
:1965 Author Organization [facility] Address [address] [place] [address] Care Team Providers Name Role Phone Unavailable Primary Care Provider Unavailable Reason for Visit Reason Onset Date Comments MRI from [facility] 10/02/2019 Dr. Diehl Encounter Details Date Type Department Care Team Description 10/02/2019 Clinical Communication Department of Robert Diehl [facility] 200 [facility]) [place], [place] [address] [place] [id number] [place], [place] [phone] (Work) [phone] Social History Tobacco Use Types Packs/Day Years [...] you attend evangelical or Patient refused 2021 restorationist services? Do [...] with the radiology film room ([facility]) at [facility]. They have pushed the MRI and it should be here soon. [employer] documented in this encounter Plan of Treatment Not on filedocumented as of this encounter Visit Diagnoses Not on filedocumented in this encounter Additional Health Concerns Assessment Noted Time PHQ-9 Depression Total Score: 5 04/05/2019 8:00 AM CDT documented as of this encounter
--- OUTSIDE RECORDS SUMMARY | 2022-08-01 06:49 | XMS_ITS | Encounter Summary ---
:1965 Author Organization [facility] Address [address] [place] [address] Care Team Providers Name Role Phone Unavailable Primary Care Provider Unavailable Reason for Visit Outpatient (Routine) - Closed Specialty Diagnoses / Procedures Referred By Contact Refer red To Contact Neurology Robert Diehl M. D. [facility] [address] [place] [address] [phone] Referral ID Status Reason Start Date Expiration Date Visits Requ ested Visits Authorized [id number] Closed 06/28/2019 06/27/2020 1 1 Encounter Details Date Type Department Care Team Description 10/02/2019 Office Visit Department of Robert Diehl, Stroke (H CC) (Primary Dx); Neurology in M.D. Thrombosis Arterial (HCC) [place], [place] [address] [place] [address] [place] [phone] Social History Tobacco Use Types Packs/Day Years [...] you attend mormonism or Patient refused 2021 adventist services? Do you belong to any clubs or No 05/17/2022 organizations such as mormonism groups, unions, [employer] or athletic groups, or school groups? How [...] of a magnetic resonance angiogram completed at [facility]. Unfortunately we do not have the [...] 1. Stroke (HCC) 2. 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
--- OUTSIDE RECORDS SUMMARY | 2022-08-01 06:49 | XMS_ITS | Encounter Summary ---
:1965 Author Organization [facility] Address [address] [place] [address] Care Team Providers Name Role Phone Unavailable Primary Care Provider Unavailable Reason for Visit Reason Onset Date Comments Nicotine Dependence 08/30/2019 Encounter Details Date Type Department Care Team Description 08/30/2019 Clinical Department of Tesfaye Ortega, Nicotine Janet grady Communication Nicotine Kenna D, Dependence, Jordy Alex, [facility] [place], [place] [address] [place] [address] Social History Tobacco Use Types Packs/Day Years [...] you attend catholic or Patient refused 2021 adventist services? Do [...] or slept in a jail (including now)? Sex Assigned at Date Recorded Female 03/01/2019 10:12 AM CDT documented as of this encounter Plan of Treatment Not on filedocumented as of this encounter Visit Diagnoses Not on filedocumented in this encounter Additional Health Concerns Assessment Noted Time PHQ-9 Depression Total Score: 5 04/05/2019 8:00 AM CDT documented as of this encounter
--- OUTSIDE RECORDS SUMMARY | 2022-08-01 06:49 | XMS_ITS | Encounter Summary ---
:1965 Author Organization [facility] Address [address] [place] [address] Care Team Providers Name Role Phone Unavailable Primary Care Provider Unavailable Reason for Referral Outpatient (Routine) - Closed Specialty Diagnoses / Procedures Referred By Contact Refer red To Contact Neurology Robert Diehl M. D. [facility] [address] [place] [address] [phone] Referral ID Status Reason Start Date Expiration Date Visits Requ ested Visits Authorized [id number] Closed 06/28/2019 06/27/2020 1 1 Reason for Visit Outpatient (Routine) - Closed Specialty Diagnoses / Procedures Referred By Contact Refer red To Contact Neurology Diagnoses Stroke (HCC) Thrombosis Arterial (HCC) Aneurysm Cerebral Unruptured (HCC) Fernie Soriano M.D. [facility] [address] [place] [address] [phone] Referral ID Status Reason Start Date Expiration Date Visits Requ ested Visits Authorized [id number] Closed 03/31/2019 03/30/2020 1 1 Encounter Details Date Type Department Care Team Description 06/28/2019 Office Visit Department of Robert Diehl Fatigue ( Primary Dx); Neurology in [place] Stroke (HCC); [place], [place] 200 [facility] Thrombosis Arterial (HCC); [address] [place] [address] Aneurysm Cerebral Unruptured (HCC) [place] [phone] Social History Tobacco Use Types Packs/Day Years [...] you attend jewish or Patient refused 2021 pentecostal services? Do [...] documented as of this encounter Progress Notes Rboert Diehl M.D. - 06/28/2019 3:00 PM CDT [...] Fatigue PUL Home Overnight Oximetry 2. Stroke ([facility]) Neurology - Cerebrovascular consult (clinic) MR Neck Angiogram without and with IV Contrast PM Device interrogation (clinic) 3. Thrombosis Arterial ([facility]) Neurology - Cerebrovascular consult (clinic) MR Neck Angiogram without and with IV Contrast PM Device interrogation (clinic) 4. Aneurysm Cerebral Unruptured ([facility]) Neurology - Cerebrovascular consult (clinic) documented in this encounter Plan of Treatment Scheduled Orders Name Type Priority [facility] Diagnoses [facility] PFT Routine Fatigue Expected: 06/28/2019 Oximetry (Approximate), Expires: 06/28/2022 Scheduled Referrals Name Type Priority Associated Diagnoses Order S [facility] Neurology office Outpatient Referral [...]
--- OUTSIDE RECORDS SUMMARY | 2022-08-01 06:49 | XMS_ITS | Encounter Summary ---
:1965 Author Organization [facility] Address [address] [place] [address] Care Team Providers Name Role Phone Unavailable Primary Care Provider Unavailable Encounter Details Date Type Department Care Team Description 06/28/2019 Hospital Encounter Department of Fernie Soriano Stroke ([facility]); Radiology, Jordy Alvarado M.D. Thrombosis Arterial ([facility]); Building, in [address] [place] [address] Aneurysm Cerebral Unruptured ([facility]) [place], [place] [address] [place] [phone] [place], [place] [phone] (Work) [phone] Social History Tobacco Use Types Packs/Day Years [...] you attend tenriism or Patient refused 2021 episcopalian services? Do [...] the ventral aspect (series 6 image s [id number]). The lumen remains significantly irregular and there [...] well seen. The RADHA, MCA, a nd FINANCIAL DIRECTOR branches are unremarkable in appearance. Stable postoperative [...] the ventral aspect (series 6 image s [phone]). The lumen remains significantly irregular and there [...] well seen. The RADHA, MCA, a nd FINANCIAL DIRECTOR branches are unremarkable in appearance. Stable postoperative [...]
--- OUTSIDE RECORDS SUMMARY | 2022-08-01 06:49 | XMS_ITS | Encounter Summary ---
:1965 Author Organization [facility] Address [address] [place] [address] Care Team Providers Name Role Phone Unavailable Primary Care Provider Unavailable Reason for Visit Reason Onset Date Comments Nicotine Dependence 09/04/2019 Encounter Details Date Type Department Care Team Description 09/04/2019 Clinical Department of Tesfaye Ortega, Nicotine Janet grady Communication Nicotine Kenna D, Dependence, Jordy Alex, [facility] in [place], [place] [address] [place] [address] Social History Tobacco Use Types Packs/Day Years [...] you attend anabaptist or Patient refused 2021 christian services? Do [...]
--- OUTSIDE RECORDS SUMMARY | 2022-08-01 06:50 | XMS_ITS | Encounter Summary ---
:1965 Author Organization [facility] Address [address] [place] [address] Care Team Providers Name Role Phone Unavailable [...] you attend orthodoxy or Patient refused 2021 episcopalian services? Do [...] and Lateral 2 Views (08/18/2008 9:44 PM [facility]) Anatomical Region Laterality Modality Chest, Thoracic RST LOS N/A Radiographic Xi ging Specimen (Source) Anatomical Collection Method Collection Time Re ceived Time Location / / Volume Laterality 08/18/2008 9:44 PM MST Narrative 08/18/2008 9:57 PM [facility] Indications: ?PNE PATHWAY CALL [phone] IF POS - pt unable to remove [...] from the original. Indications: PNE PATHWAY CALL [phone] IF P OS - pt unable to [...]
--- OUTSIDE RECORDS SUMMARY | 2022-08-01 06:50 | XMS_ITS | Encounter Summary ---
:1965 Author Organization [facility] Address [address] [place] [id number] Care Team Providers Name Role Phone Unavailable Primary Care Provider Unavailable Reason for Referral Outpatient (Routine) - Closed Specialty Diagnoses / Procedures Referred By Contact Refer red To Contact Neurology Diagnoses Stroke (HCC) Thrombosis Arterial (HCC) Aneurysm Cerebral Unruptured (HCC) Fernie Soriano M.D. [facility] [address] [place] [phone] Referral ID Status Reason Start Date Expiration Date Visits Requ ested Visits Authorized [id number] Closed 03/31/2019 03/30/2020 1 1 Reason for Visit Reason Comments Dizziness Evaluated in superior with CT scan. Headache Encounter Details Date Type Department Care Team Description 03/29/2019 - Hospital Encounter [facility] Alfredo Rausch M.D., M.A. [address] [place] [address] Stroke (HCC) (Primary Dx); [facility] [address] [place] [phone] Transient Ischemic Attack; [facility], Nan Rios M.D. [address] [place] [phone] Thrombosis Arterial (HCC); [facility], Nicotine Dependence Cigarettes; Second floor Aneurysm Cerebral Unruptured ([facility]) [address] [place] [address] Social History Tobacco Use Types [...] you attend mu-ism or Patient refused 2021 denominational services? Do [...] documented in this encounter Discharge Summaries Fernie Sroiano M.D. - 03/31/2019 1:36 PM CDT DISCHARGE SUMMARY BRIEF OVERVIEW Discharge Provider: Nan Rios M.D. No primary care provider on file. Per patient, follows with Dr. Estephanie Franz in [place], [place]. Primary Care Provider Phone Number: None [...] and PCP follow-up with Dr. Franz in [place], [place], scheduled for 04/02/2019. - Please be [...] 04/10/2019 2:15 PM Darlin Olmedo M.D. [facility] RS[facility]olanta Spec TEST RESULTS PENDING AT DISCHARGE [...] speech at the time. She presented to [facility], where MRI/MRA head showed multiple foci [...] was discharged on a weekend, our clinical assistant dean will arrange for PCP follow-up and INR [...] speech at the time. She presented to [facility], where MRI/MRA head showed multiple foci [...] was discharged on a weekend, our clinical assistant dean will arrange for PCP follow-up and INR checks on Tuesday. RECOMMENDATIONS: - Patient to continue enoxaparin 70 mg (1 mg/kg) BID bridge to warfarin with goal INR 2-3. Patient to receive INR checks and PCP follow-up with Dr. Franz in [place], [place] as soon as possible after discharge. [...] this after visit summary to your appointment(s). [place], [place] April 02, 2019 - Tuesday --12:30 PM - Hospital Follow-Up with Dr. Gold MD, Colleague of Juana Franz MD, primary care provider, at [facility] RECOMMENDATIONS: * April 02, 2019 at 9:30 AM [facility] INR Check * [facility] You may have outpatient appointments at [facility] that changed during your hospitalization. Refer to your [facility] Patient Visit Guide (PVG) for the most current schedule of appointments and detailed instructions of tests/procedures. Call [phone], if you did not receive an PVG or need to CANCEL any [facility] appointment(s). You were discharged from the [...] a day as needed for cough. tiZANidine (ZANAFLEX) 4 mg Take 4-8 mg [...] tablet, under the tongue sublingual every morning. esomeprazole (NexIUM) 40 Take 40 mg [...] (DULERA) 200-5 times a day. mcg/actuation inhaler ondansetron ODT Take 1 tablet by 0 [...] tablet mg total) by mouth at bedtime. diazePAM (VALIUM) 10 mg Take 10 mg [...] are intact. There is no dysmetria on klpeux-ii-pwlj and nhgx-of-xnam. There are no abnormal or extraneous movements. Romberg sign is absent. Gait: Posture is normal. Tandem gait demonstrated. Gait steady with normal steps, base, arm swing and turning. DIAGNOSTICS Last 3 results Lab Units 03/31/19 0803/30/19 0603/29/19 1404 HEMOGLOBIN g/dL 12.9 12.5 12.4 WBC [...] next week (to be arranged by clinical assistant dean, in-basket message sent). Will also require follow-up [...] --Will arrange for PCP appt (Dr. Franz, [place], [place]) for INR monitoring 04/02 or earliest [...] page the neurology stroke/cerebrovascular disease service pager [phone]) with any questions orconcerns. Kylie Rubio RRebekah. - 03/30/2019 2:59 PM CDT Patient discussed [...] 03/28 - 03/28 - 03/29 - 03/30 235 Continuous Medications 14.2 Total Intake(mL/kg) 14.2 (0.2) [...] are intact. There is no dysmetria on wgrqyw-xx-ixae and kjfa-sq-tcfw. There are no abnormal or extraneous movements. [...] 0.81 Last 3 results Lab Units 03/30/19 0603/30/19 0620 03/29/19 1646 03/29/19 1404 GLUCOSE P [...] Findings discussed at 2:03 p.m with pager [phone] Additional Diagnostic Studies Ecg 12 Lead Result [...] intensity heparin nomogram currently, switching to enoxaparin 5 evening and will d/c on that to [...] page the neurology stroke/cerebrovascular disease service pager [phone]) with any questions orconcerns. documented in this [...] the day of presentation and came to [facility], although head CT did not demonstrate [...] developed a headache approximately 45 min later. Bruni room was tilting, not spinning, and had [...] dull and mild now. She presented to [facility], where MRI/MRA head showed multiple foci [...] kg/m?? Pulse Rate: [56-61] 56 I/O 03/28 - 03/28 2359 03/29 - 03/29 2359 Unmeasured Urine Occurrence 1 [...] are intact. There is no dysmetria on rrkufs-rn-weaj and gfus-fl-qgqx. There are no abnormal or extraneous movements. [...] Findings discussed at 2:03 p.m with pager [phone] Additional Diagnostic Studies ASSESSMENT / PLAN Ms. [...] consult placed Diet: general diet, NPO at [place] for [place] Tubes/lines: Will place PIV VTE prophylaxis: therapeutic anticoagulation Code status: Full Code Disposition: Likely Home with expected discharge date pending Trent Ferrer M.D. 03/29/19 Please page the stroke/cerebrovascular neurology service pager ([phone]) for any questions or concerns. STROKE DOCUMENTATION: [...] this encounter Consult Notes Oli Gonzalez P.T., Juice.P.T. - 03/30/2019 4:05 PM CDT Physical Therapy Acute Hospital Inpatient Evaluation/Treatment SUBJECTIVE Patient's Name: Angie Mosquera Referring/Attending Provider: Robert iDehl M.D. Reason for Referral: PT evaluate and [...] Prior Function / Occupational Profile Level of [place]: Independent with ADLs and functional transfers, Independent [...] Score: 24 Basic Mobility Standardized Score: 61.14 [facility] 0-100% Score: 0 % Basic Mobility [facility] Modifier: CH INTERPRETATION: Clinicians answer the [...] be discharged home to her apartment this weekend. Her son lives near to her home [...] Score: 0 % Basic Mobility CMS Modifier: DOMINGO Gonzalez P.T., D.P.T. Kenna Christensen M.S., C.T.T.S. - 03/30/2019 2:26 PM CDTAssociated Order(s): IP CONSULT TO INTERNAL MEDICINE NICOTINE DEPENDENCE SUBJECTIVE Consults REASON FOR CONSULT Admitting Service: Neurology Reason for Consult: Tobacco Use Disorder HISTORY OF PRESENT ILLNESS Angie Mosquera is a 53 y.o. female who was seen at [facility] and is being evaluated for Tobacco [...] Prior Function / Occupational Profile Level of [place]: Independent with ADLs and functional transfers, Independent [...] be independent with home exercise resistive theraband ([place]) program for left shoulder and elbow (MET) OT Goal #3 Date: 03/30/19 @FLOW12([id number])@ Plan Patient agrees with the plan of [...] living independently in her own apartment in [place] until yesterday morning when she noted the [...] Ms. Mosquera was initially taken to the [facility] where MRI/MRA (images which I reviewed in QREADS) revealed bila teral small areas of restricted diffusion in posterior distribution involving both the cerebellar and occipital lobes. The etiology was presumed embolic and she was transferred to [facility] for further evaluation here. Upon arrival at [facility], Ms. Mosquera was described as alert, in [...] has lived alone in an apartment in [place] for,I believe, 5 years. She is unemployed, [...] tone: Upper and lower extremities 0/0. Coordination: Kpsgoh-fk-yanm was 0/0. Satellite sign was symmetric. Cranial nerves II through XII: Extraocular movements were intact. Visual jhaveri were intact. Ruay-hk-ccnztucf decreased hearing acuity bilaterally. Smile symmetric. Tongue [...] diagnostic data. 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 female who presents to the [facility] for evaluation of vertigo and [...] vertiginous but improved. REVIEW OF SYSTEMS Angie Moqsuera's history was reviewed including allergies, current medications, [...] an Emergency Neurology consult note. Please page [phone] with any additional questions. I personally spent [...] stable and no neuro change overnight. Reports 7-07/07 chronic fibromyalgia pain treated with PRNs. Currently [...] CHIEF COMPLAINT/REASON FOR VISIT Dizziness (Evaluated in superior with CT scan. ) and Headache HISTORY OF PRESENT ILLNESS 53-year-old female who presents from outside facility to [facility] ED with a chief concern of [...] She was transported from outside hospital to [facility] for further evaluation management by Neurology [...] do basic arithmetic No visual agnosia No bzer-cu-xpbqd agnosia Tmahep-yi-wcgv normal Zvly-ua-zroe normal Skin: Skin is warm, dry, intact [...] to the emergency department by ambulance from [facility] for evaluation of headache and difficulty with balance. Patient states that she woke up this morning and felt like her body was drunk. She subsequently developed a headache. She was seen at the outside hospital and underwent neuro imaging, laboratory evaluation, EKG testing. She now presents for neurological[facility]uation at [facility]. She is currently complaining of fatigue only. Neuro imaging at [place]: MRI head MRA demonstrates multiple foci of [...] Ischemic Attack Alfredo Rausch M.D., M.A. 03/30/19 142 documented in this encounter Miscellaneous Notes Hospital [...] speech at the time. She presented to [facility], where MRI/MRA head showed multiple foci [...] was discharged on a weekend, our clinical assistant dean will arrange for PCP follow-up and INR checks on Tuesday. documented in this encounter Plan of Treatment Scheduled Referrals Name Type Priority Associated Order Schedule Diagnoses Neurology - Outpatient Routine Stroke ([facility]) Expected: Cerebrovascular consult Referral Thrombosis 02/2019 (clinic) Arterial ([facility]) (Approximate), Aneurysm Cerebral Expires: Unruptured ([facility]) 03/31/2022 documented as of this encounter Procedures [...] - Routine 03/30/2019 5:32 Results for HOSPITAL METALIZING SUPERVISOR - PM CDT this proc edure MONITORED [...] N/A Computed Tomography ARZ LOS, Neuroradiology [facility] Specimen (Source) Anatomical Collection Method Collection [...] the ventral aspect (series 6 image s [id number]). The lumen remains significantly irregular and there [...] well seen. The RADHA, MCA, a nd HIGH ENERGY FORMING EQUIPMENT OPERATOR branches are unremarkable in appearance. Stable postoperative [...] the ventral aspect (series 6 image s [id number]). The lumen remains significantly irregular and there [...] well seen. The RADHA, MCA, a nd HIGH ENERGY FORMING EQUIPMENT OPERATOR branches are unremarkable in appearance. Stable postoperative [...] Prothrombin Time (PT/INR) (03/31/2019 8:12 AM CDT) [facility] Method Time Signature Prothrombin 11.5 9.4 - 12.5 03/31/2019 [facility] Time, P sec 8:46 AM CDT LAB[facility]ATORIES [facility] INR 1.0 0.9 - 1.1 03/31/2019 [facility] 8:46 AM CDT [facility] Comment: ----ADDITIONAL INFORMATION---- Standard intensity warfarin [...] City/State/ZIP Code Phon e Number [facility] LABORATORIES - [address] [place], [place] [address] [facility] CBC without Differential (03/31/2019 8:12 AM CDT) [facility] gist Method Time Signature Hemoglobin 12.9 11.6 - 03/31/2019 [facility] 15.0 g/dL 8:37 AM CDT [facility] Hematocrit 39.6 35.5 - 03/31/2019 [facility] 44.9 % 8:37 AM CDT [facility] Erythrocytes 4.06 3.92 - 03/31/2019 [facility] 5.13 8:37 AM CDT LABORATORIES - x10(12)/L [facility] MCV 97.5 78.2 - 03/31/2019 [facility] 97.9 fL 8:37 AM CDT [facility] RBC Distrib Width 13.2 12.2 - 03/31/2019 [facility] 16.1 % 8:37 AM CDT [facility] Platelet Count 256 157 - 371 03/31/2019 [facility] x10(9)/L 8:37 AM CDT LABORATORIES - [facility] Leukocytes 5.3 3.4 - 9.6 03/31/2019 [facility] x10(9)/L 8:37 AM CDT [facility] Specimen Anatomical Collection Method Collection Time Receive d Time (Source) Location / / Volume Laterality Blood (Blood, 03/31/2019 8:12 AM 03/31/20 19 8:31 Venous) CDT AM CDT Trent Ferrer M.D. LAB BLOOD ADD-ON Performing Organization Address City/State/ZIP Code Phon e Number [facility] LABORATORIES - [address] [place], [place] [address] [facility] HOLTER MONITOR - HOSPITAL METALIZING SUPERVISOR - MONITORED IN HOSPITAL OR ED DISCHARGE (03/30/2019 5:32 PM CDT) [facility] gist Method Time Signature Recording Date [id number] HOLTER SENTINEL Analysis Date 20,190,510 HOLTER SENTINEL Max Heart Rate 125 bpm HOLTER SENTINEL Max Heart Rate [id number] HOLTER Time SENTINEL Min Heart Rate 46 bpm HOLTER SENTINEL Min Heart Rate [id number] HOLTER Time SENTINEL Mean Heart 71 bpm [...] count HOLTER Hour SENTINEL VE Max Per [id number] HOLTER Hour Time SENTINEL AF Count 0 count HOLTER SENTINEL SVT Runs 0 count HOLTER SENTINEL SVE Total 106 count HOLTER Beats SENTINEL SVE Percent 0 percent HOLTER Beats SENTINEL SVE Max Per 18 count HOLTER Hour SENTINEL SVE Max Per [id number] HOLTER Hour Time SENTINEL Specimen (Source) Anatomical [...] superior vena cava. Patent foramen ovale. ??No oril-xh-diiyq shunt at atrial level. ??Agitated saline injection(s) performed. ??Small qliqe-ee-ucbt shunt a t atrial level at rest and with Valsalva release. Pericardial effusion. ??PROCEDURE ??Max sesophageal echocardiogram performed at the request of the primary rehabilitation services aide. ??Adult probe inserted without difficulty. ??Procedure performed [...] Sedation Narrator or other pertinent record in [facility] for additional procedure and sedation in [...] superior vena cava. Patent foramen ovale. No iivz-mz-vcayd s ballesteros at atrial level. Agitated saline injection(s) performed. Small navgj-tl-yija shunt at atrial level at rest and with Valsalva release. Pericardial effusion. PROCEDURE Transeso phageal echocardiogram performed at the request of the primary rehabilitation services aide. Adult pr obe inserted without difficulty. Procedure [...] Sedation Narrator or other pertinent record in [facility] for additional procedure and sedation in formation. Transesophageal echocardiogram completed without complications. For the complete report, see the Order-L evel Documents below. See PDF For Result Trent Ferrer M.D. CV ECHO PROCEDURES Prothrombin Time (PT/INR) (03/30/2019 11:42 AM CDT) [facility] Method Time Signature Prothrombin 11.3 9.4 - 12.5 03/30/2019 [facility] Time, P sec 12:05 PM CDT [facility] INR 1.0 0.9 - 1.1 03/30/2019 [facility] 12:05 PM CDT [facility] Comment: ----ADDITIONAL INFORMATION---- Standard intensity warfarin [...] City/State/ZIP Code Phon e Number [facility] LABORATORIES - [address] [facility], [place] [address] [facility] ECG 12 Lead (03/30/2019 9:30 AM CDT) P athologist Signature Ventricular Rate 53 BPM MUSE ECG/Min CO Interval 150 ms MUSE QRSD Interval 84 ms MUSE QT Interval 452 ms MUSE QTC Interval 424 ms MUSE P [place] 7 degrees MUSE R [place] -11 degrees MUSE T Wave [place] 1 degrees MUSE Specimen Anatomical Collection Method [...] Basic Metabolic Panel (03/30/2019 6:21 AM CDT) Analysis Performed At Patho logist Time Signature Potassium, S 4.1 3.6 - 5.2 03/30/2019 [facility] mmol/L 7:41 AM CDT LABORATORIES - [facility] Sodium, S 141 135 - 145 03/30/2019 [facility] mmol/L 7:41 AM CDT [facility]ATORIES - [facility] Chloride, S 106 98 - 107 03/30/2019 [facility] mmol/L 7:41 AM CDT [facility] - [facility] Bicarbonate, S 24 22 - 29 03/30/2019 [facility] mmol/L 7:41 AM CDT [facility] - [facility] Anion Gap 11 7 - 15 03/30/2019 [facility] 7:41 AM CDT [facility] - [facility] BUN (Blood Urea 14 6 - 21 03/30/2019 [facility] Nitrogen), S mg/dL 7:41 AM CDT LAB[facility]IES - [facility] Creatinine 0.73 0.59 - 03/30/2019 [facility] 1.04 mg/dL 7:41 AM CDT [facility] eGFR-Non >90 >=60 03/30/2019 [facility] Black/ mL/min/BSA 7:41 AM CDT LABORATORIES [facility] Comment: ----ADDITIONAL INFORMATION---- Estimated GFR calculated using the 2009 CKD_EPI creatinine equation. eGFR-Black/ >90 >=60 mL/min/BSA 03/30/2019 7:41 [facility] ER CDT [facility] Comment: ----ADDITIONAL INFORMATION---- Estimated GFR calculated using the 2009 CKD_EPI creatinine equation. Calcium, Total, S 8.9 8.6 - 10.0 mg/dL 03/30/2019 7:41 AM [facility] CDT [facility] S Glucose, S 100 70 - 140 mg/dL 03/30/2019 7:41 AM [facility] CDT LAB[facility]ATORIES [facility] S Specimen Anatomical Collection Method Collection Time Receive d Time (Source) Location / / Volume Laterality Blood (Blood, 03/30/2019 6:21 AM 03/30/20 19 6:52 Venous) CDT AM CDT Trent Ferrer M.D. LAB BLOOD ADD-ON Performing Organization Address City/State/ZIP Code Phon e Number [facility] LABORATORIES - [address] (ABNORMAL) CBC without Differential (03/30/2019 6:21 AM CDT) [facility] Method Time Signature Hemoglobin 12.5 11.6 - 03/30/2019 [facility] 15.0 g/dL 6:54 AM CDT [facility] Hematocrit 37.9 35.5 - 03/30/2019 [facility] 44.9 % 6:54 AM CDT [facility] Erythrocytes 3.87 (L) 3.92 - 03/30/2019 [facility] 5.13 6:54 AM CDT LABORATORIES - x10(12)/L [facility] MCV 97.9 78.2 - 03/30/2019 [facility] 97.9 fL 6:54 AM CDT [facility] RBC Distrib 13.5 12.2 - 03/30/2019 [facility] Width 16.1 % 6:54 AM CDT [facility] - [facility] Platelet Count 245 157 - 371 03/30/2019 [facility] x10(9)/L 6:54 AM CDT [facility] Leukocytes 4.1 3.4 - 9.6 03/30/2019 [facility] x10(9)/L 6:54 AM CDT [facility]ATORIES - [facility] Specimen Anatomical Collection Method Collection Time Receive d Time (Source) Location / / Volume Laterality Blood (Blood, 03/30/2019 6:21 AM 03/30/20 19 6:44 Venous) CDT AM CDT Trent Ferrer M.D. LAB BLOOD ADD-ON Performing Organization Address City/[facility] Phon e Number [facility] LABORATORIES - [address] [place] [address] [facility] Coagulation Factor II Activity Assay (03/30/2019 6:20 AM CDT) athologist Signature Coag Factor II 93 75 - 145 % 03/30/2019 [facility] Assay, P 11:53 AM CDT [facility] Comment: ----ADDITIONAL INFORMATION---- This test has been modified from the carleton treyacturer's instructions. Its performance characteri stics were determined by [facility] in a manner co nsistent with CLIA requirements. This test has not bee n cleared or approved by the U.S. Food and Drug Admin istration. Specimen Anatomical Collection Method Collection Time Receive d Time (Source) Location / / Volume Laterality Blood 03/30/2019 6:20 AM 9 CDT 11:12 AM CDT Trent Ferrer M.D. LAB BLOOD ADD-ON Performing Organization Address City/[facility] Phon e Number [facility] LABORATORIES - [address] [place] [address] [facility] Protein S Antigen, Total (03/30/2019 6:20 AM CDT) athologist Signature Protein S Ag, 91 80 - 160 % 03/30/2019 [facility] Total, P 11:04 AM CDT [facility] Comment: ----ADDITIONAL INFORMATION---- This test has been modified from the carleton ufacturer's instructions. Its performance characteri stics were determined by [facility] in a manner co nsistent with CLIA requirements. This test has not bee n cleared or approved by the U.S. Food and Drug Admin istration. Specimen Anatomical Collection Method Collection Time Receive d Time (Source) Location / / Volume Laterality Blood 03/30/2019 6:20 AM 9 7:17 CDT AM CDT Trent Ferrer M.D. LAB BLOOD NON ADD-ON Performing Organization Address City/[facility]/ZIP [facility] Phon e Number [facility] LABORATORIES - [address] [place], [place] [address] [facility] Reptilase Time, Plasma (03/30/2019 6:20 AM CDT) athologist Signature Reptilase 17 14 - 23 03/30/2019 [facility] Time, P sec 9:49 AM CDT [facility] Comment: ----ADDITIONAL INFORMATION---- This test has been modified from the kyle cordovar's instructions. Its performance characteri stics were determined by [facility] in a manner co nsistent with CLIA requirements. This test has not bee n cleared or approved by the U.S. Food and Drug Admin istration. Specimen Anatomical Collection Method Collection Time Receive d Time (Source) Location / / Volume Laterality Blood 03/30/2019 6:20 AM 9 7:17 CDT AM CDT Trent Ferrer M.D. LAB BLOOD ADD-ON Performing Organization Address City/[facility] Phon e Number [facility] LABORATORIES - [address] [place], [place] [address] [facility] (ABNORMAL) APTT Mix 1:1 (03/30/2019 6:20 AM CDT) P athologist Signature APTT Mix 1:1 42 (H) 26 - 36 03/30/2019 [facility] sec 9:49 AM CDT [facility] Comment: ----ADDITIONAL INFORMATION---- This test has been modified from the kyle yangacturer's instructions. Its performance characteri stics were determined by [facility] in a manner co nsistent with CLIA requirements. This test has not bee n cleared or approved by the U.S. Food and Drug Admin istration. Specimen Anatomical Collection Method Collection Time Receive d Time (Source) Location / / Volume Laterality Blood 03/30/2019 6:20 AM 9 7:17 CDT AM CDT Trent Ferrer M.D. LAB BLOOD ADD-ON Performing Organization Address [facility] Phon e Number [facility]ATORIES - [address] [address] 05 [facility] Heparin Anti-Xa Assay (03/30/2019 6:20 AM CDT) athologist Signature Heparin 0.38 IU/mL 03/30/2019 [facility] Anti-Xa, P 7:12 AM CDT LABORATORIES [facility] Comment: [facility] therapeutic range: ?? 0.30-0.70 [...] LAB BLOOD NON ADD-ON Performing Organization Address City/[facility]/ZIP Code Phon e Number [facility]IES - [address] [address] 05 [facility] Beta-2 Glycoprotein 1 Antibodies, IgG and IgM (03/30/2019 6:20 AM CDT) athologist Signature Beta 2 GP1 Ab <9.4 <15.0 03/30/2019 [facility] IgG, S (Negative) 7:[address] U/mL [facility] Beta 2 GP1 Ab <9.4 <15.0 03/30/2019 [facility] IgM, S (Negative) 7:[address] U/mL [facility] Specimen Anatomical Collection Method Collection Time Receive d Time (Source) Location / / Volume Laterality Blood (Blood, 03/30/2019 6:20 AM 03/30/20 19 9:55 Venous) CDT AM CDT Trent Ferrer M.D. LAB BLOOD ADD-ON Performing Organization Address City/State/ZIP Code Phon e Number [facility] [address] [place] [address] 05 [facility] Phospholipid (Cardiolipin) Antibodies, IgG and IgM (03/30/2019 6:20 AM CDT) P athologist Signature Phospholipid Ab <9.4 <15.0 03/30/2019 [facility] IgM, S (Negative) 3:49 PM CDT [facility] Phospholipid Ab <9.4 <15.0 03/30/2019 [facility] IgG, S (Negative) 3:49 PM CDT [place] [facility] Specimen Anatomical Collection Method Collection Time Receive d Time (Source) Location / / Volume Laterality Blood (Blood, 03/30/2019 6:20 AM 03/30/20 19 9:55 Venous) CDT AM CDT Trent Ferrer M.D. LAB BLOOD ADD-ON Performing Organization Address City/[facility]/ZIP Code Phon e Number [facility] [address] [place], [place] [address] [facility] (ABNORMAL) Thrombophilia Profile (03/30/2019 6:20 AM CDT) Patholo gist Method Time Signature Prothrombin Time 10.9 10.3 - 03/30/2019 [facility] (PT), P 12.8 sec 9:35 AM CDT LABORATORIES - [facility] INR 1.0 03/30/2019 [facility] 9:35 AM CDT LABORATORIES - [facility] Activated 57 (H) 26 - 36 03/30/2019 [facility] Partial sec 9:46 AM CDT LABORATORIES - Thrombopl Time, [facility] DRVVT Screen 0.7 0.0 - 1.1 03/30/2019 [facility] Ratio ratio 9:35 AM CDT LABORATORIES - [facility] Thrombin Time 73 (H) 15 - 23 03/30/2019 [facility] (Bovine), P sec 9:46 AM CDT LABORATORIES - [facility] Comment: ----ADDITIONAL INFORMATION---- This test has been modified from the man ufacturer's instructions. Its performance characteri stics were determined by [facility] in a manner co nsistent with CLIA requirements. This test has not bee n cleared or approved by the U.S. Food and Drug Admin istration. Fibrinogen, P 276 200 - 430 mg/dL 03/30/2019 10:[address] [facility] Comment: ----ADDITIONAL INFORMATION---- This test has been modified from the [employer] Bridges[employer]urer's instructions. Its performance characteri stics were determined by [facility] in a manner co nsistent with CLIA requirements. This test has not bee n cleared or approved by the U.S. Food and Drug Admin istration. Fibrinogen 0.26 0.00 - 0.50 03/30/2019 12:44 PM [facility] INIC Equivalent Units mcg/mL U T [facility] ([facility] D-Dimer Units (DDU) 130 0 - 250 ng/mL 03/30/2019 12:44 PM [facility] D-Dimer [facility] Soluble Fibrin <8 0.0 - 7.9 mcg/mL 03/30/2019 1:19 PM [facility] Monomer T [facility] Comment: ----ADDITIONAL INFORMATION---- This test was developed and its performa nce characteristics determined by [facility] in a manner co nsistent with CLIA requirements. This test has not bee n cleared or approved by the U.S. Food and Drug Admin istration. Antithrombin Activity, 99 80 - 130 % 03/30/2019 10:05 AM [facility] P T [facility] Comment: ----ADDITIONAL INFORMATION---- This test has been modified from the [employer]ges[employer]'s instructions. Its performance characteri stics were determined by [facility] in a manner co nsistent with CLIA requirements. This test has not bee n cleared or approved by the U.S. Food and Drug Admin istration. Protein C Activity, P 131 70 - 150 % 03/30/2019 9:33 A M T [facility] Comment: ----ADDITIONAL INFORMATION---- This test has been modified from the [employer]'s instructions. Its performance characteri stics were determined by [facility] in a manner co nsistent with CLIA requirements. This test has not bee n cleared or approved by the U.S. Food and Drug Admin istration. Protein S Ag, Free, 59 (L) 65 - 160 % 03/30/2019 10:19 AM [facility] P CDT LABORATORIES - [facility] [place] Comment: ----ADDITIONAL INFORMATION---- This test has been modified from the [employer] HealthSourceurer's instructions. Its performance characteri stics were determined by [facility] in a manner co nsistent with CLIA requirements. This test has not bee n cleared or approved by the U.S. Food and Drug Admin istration. APCRV Ratio 3.0 >or=2.3 03/30/2019 10:11 [facility] AM CDT LAB[facility]ATORIES [facility] Prothrombin [id number] Negative Negative 04/02/2019 5:19 [facility] Mutation, B PM CDT LAB[facility]ATORIES [facility] PTNT Reviewed By Lewis Moreno, 04/02/2019 5:19 [facility] MBBS CDT LABORATORIES [facility] PTNT Interpretation This individual DOES NOT hav e the Prothrombin [id number] mutation. Although the 04/02/2019 5:19 [facility] Prothrombin [id number] mutation is absent, the chloe kang may have other genetic CDT LABORATORIES - and environmental risk factors for thrombosis. Alanna rosa genetic consultation [facility] and counseling of potentially affected family members [facility] testing. Comment: ----ADDITIONAL INFORMATION---- This test is a direct mutation analysis using PCR amplification, signal generation and release by cleavage of se quence specific alleles ([employer], [employer] [facility], [place], [place]). This test has been modified from the [employer]'s instructions. Its performance characteristics were determi jayesh by [facility] in a manner consistent with CLIA requirements. This test has not been cleared or approved by the U.S. Food and Drug Administration . Reviewed by: Milad Emerson M.D. 04/03/2019 1:35 PM [facility] CDT LAB[facility]ATORIES [facility] Interpretation ?Type of Study: ?? Thrombophilia Profile 04/03/2019 1:35 PM [facility] ?IMPRESSION: ??1) Decreased protein S free antigen, a cquired versus CDT LABORATORIES - congenital. ??See comments and suggest clinical correlation. [facility] ?2) Data are consistent with [...] patient does n ot have the prothrombin [id number] mutation. ?Separately performed and reported testing for beta-2 glycoprotein I and anticardiolipin antibodies (IgG and IgM isotypes) demonstrat ed normal results, providing no evidence of antiphospholipid antibodie s by these methodologies. Specimen Anatomical Collection Method Collection Time Receive d Time (Source) Location / / Volume Laterality Blood (Blood, 03/30/2019 6:20 AM 03/30/20 19 8:13 Venous) CDT AM CDT Narrative [facility] - 04/03/2019 1:37 PM CDT Specimen Information: Specimen ID: [id number] Specimen Type: Blood Specimen Collection Start Date: 9 ??6:20 AM Specimen Received Date: 03/30/2019 ??8:13 AM Specimen ID: [id number] Specimen Type: Blood Specimen Collection Start Date: ??6:20 AM Specimen Received Date: 03/30/2019 ??7:17 AM Specimen ID: [id number] Specimen Type: Blood Specimen Collection Start Date: ??6:20 AM Specimen Received Date: 03/30/2019 ??7:17 AM Specimen ID: [id number] Specimen Type: Blood Specimen Collection Start Date: ??6:20 AM Specimen Received Date: 03/30/2019 ??7:17 AM Specimen ID: [id number] Specimen Type: Blood Specimen Collection Start Date: ??6:20 AM Specimen Received Date: 03/30/2019 ??7:17 AM Specimen ID: [id number] Specimen Type: Blood Specimen Collection Start Date: ??6:20 AM Specimen Received Date: 03/30/2019 ??7:17 AM Trent Ferrer M.D. LAB BLOOD NON ADD-ON Performing Organization Address City/State/ZIP Code Phon e Number [address] [address] [facility] Heparin Anti-Xa Assay (03/29/2019 11:28 PM CDT) P athologist Signature Heparin 0.31 IU/mL 03/30/2019 [facility] Anti-Xa, P 12:05 AM CDT LABORATORIES [facility] Comment: [facility] therapeutic range: ?? 0.30-0.70 [...] LAB BLOOD NON ADD-ON Performing Organization Address City/[facility] Phon e Number [facility]ATORIES - [address] [address] 05 [facility] Hemoglobin A1c (03/29/2019 6:05 PM CDT) Analysis Performed At Path logist Time Signature Hemoglobin A1c, 5.6 4.0 - 5.6 03/29/2019 [facility] B % 6:50 PM CDT [facility] Specimen Anatomical Collection Method Collection Time Receive d Time (Source) Location / / Volume Laterality Blood (Blood, 03/29/2019 6:05 PM 03/29/20 19 6:28 Venous) CDT PM CDT Trent Ferrer M.D. LAB BLOOD ADD-ON Performing Organization Address City/[facility] Phon e Number [facility] LABORATORIES - [address] [address] [facility] (ABNORMAL) Lipid Panel (03/29/2019 6:05 PM CDT) [facility] Method Time Signature Cholesterol, 204 (H) mg/dL 03/29/2019 [facility] Total 7:09 PM CDT [facility] Comment: ----REFERENCE VALUE---- Desirable: < 200 Borderline high: 200 - 239 High: > or = 240 Triglycerides 104 mg/dL 03/29/2019 7:09 PM CDT [facility] Comment: ----REFERENCE VALUE---- Normal: <150 Borderline high: 150-199 High: 200-499 Very high: > or =500 Cholesterol, HDL, S 91 >=50 mg/dL 03/29/2019 7:09 PM CDT [facility] Calculated LDL 92 mg/dL 03/29/2019 7:09 PM CDT [facility] Comment: ----REFERENCE VALUE---- Desirable: <100 Above Desirable: 100-129 Borderline high: 130-159 High: 160-189 Very high: > or =190 Cholesterol, Non-HDL, 113 mg/dL 03/29/2019 7:0 9 PM CDT [facility] LABORATORIES Calculated - [facility] Comment: ----REFERENCE VALUE---- Desirable: <130 Above Desirable: 130-159 Borderline high: 160-189 High: 190-219 Very high: > or =220 Specimen Anatomical Collection Method Collection Time Receive d Time (Source) Location / / Volume Laterality Blood (Blood, 03/29/2019 6:05 PM 03/29/20 19 6:28 Venous) CDT PM CDT Trent Ferrer M.D. LAB BLOOD ADD-ON Performing Organization Address City/[facility] Code Phon e Number [facility] - [address] S-TSH (Thyroid-Stimulating Hormone - Sensitive) (03/29/2019 6:05 PM CDT) athologist Signature TSH, Sensitive 1.6 0.3 - 4.2 03/29/2019 [facility] mIU/L 7:09 PM CDT [facility] Specimen Anatomical Collection Method Collection Time Receive d Time (Source) Location / / Volume Laterality Blood (Blood, 03/29/2019 6:05 PM 03/29/20 19 6:28 Venous) CDT PM CDT Trent Ferrer M.D. LAB BLOOD ADD-ON Performing Organization Address City/[facility]/ZIP Code Phon e Number [facility]ATORIES - [address] APTT (Activated Partial Thromboplastin Time) (03/29/2019 4:46 PM CDT) athologist Signature Activated 29 25 - 37 03/29/2019 [facility] Partial sec 5:01 PM CDT LABORATORIES [facility] Specimen Anatomical Collection Method Collection Time Receive d Time (Source) Location / / Volume Laterality Blood (Blood, 03/29/2019 4:46 PM 03/29/20 19 4:52 Venous) CDT PM CDT Trent Ferrer M.D. LAB BLOOD ADD-ON Performing Organization Address City/[facility]/ZIP Code Phon e Number [facility]IES - [address] Head Neck Angiogram with IV [...] gs discussed at 2:03 p.m with pager [phone] Narrative 03/29/2019 4:34 PM CDT EXAM: CT [...] gs discussed at 2:03 p.m with pager [phone] Eliseo Mejias M.D. IMG CT PROCEDURES CT Head without IV Contrast [...] gs discussed at 2:03 p.m with pager [phone] Narrative 03/29/2019 4:34 PM CDT EXAM: CT [...] gs discussed at 2:03 p.m with pager [phone] Eliseo Mejias M.D. IMGeronimo CT PROCEDURES (ABNORMAL) CBC with Differential, Blood (03/29/2019 2:04 PM CDT) [facility] Method Time Signature Hemoglobin 12.4 11.6 - 03/29/2019 [facility] 15.0 g/dL 2:11 PM CDT LABORATORIES - [facility] Hematocrit 37.0 35.5 - 03/29/2019 [facility] 44.9 % 2:11 PM CDT LABORATORIES - [facility] Erythrocytes 3.79 (L) 3.92 - 03/29/2019 [facility] 5.13 2:11 PM CDT LABORATORIES - x10(12)/L [facility] MCV 97.6 78.2 - 03/29/2019 [facility] 97.9 fL 2:11 PM CDT LABORATORIES - [facility] RBC Distrib 13.3 12.2 - 03/29/2019 [facility] Width 16.1 % 2:11 PM CDT LABORATORIES - [facility] Platelet Count 238 157 - 371 03/29/2019 [facility] x10(9)/L 2:11 PM CDT LABORATORIES - [facility] Leukocytes 4.7 3.4 - 9.6 03/29/2019 [facility] x10(9)/L 2:11 PM CDT LABORATORIES - [facility] Neutrophils 2.33 1.56 - 03/29/2019 [facility] 6.45 2:11 PM CDT LABORATORIES - x10(9)/L [facility] Lymphocytes 1.74 0.95 - 03/29/2019 [facility] 3.07 2:11 PM CDT LABORATORIES - x10(9)/L [facility] Monocytes 0.32 0.26 - 03/29/2019 [facility] 0.81 2:11 PM CDT LABORATORIES - x10(9)/L [facility] Eosinophils 0.22 0.03 - 03/29/2019 [facility] 0.48 2:11 PM CDT LABORATORIES - x10(9)/L [facility] Basophils 0.04 0.01 - 03/29/2019 [facility] 0.08 2:11 PM CDT LABORATORIES - x10(9)/L [facility] Specimen Anatomical Collection Method Collection Time Receive d Time (Source) Location / / Volume Laterality Blood (Blood, 03/29/2019 2:04 PM 03/29/20 19 2:08 Venous) CDT PM CDT Eliseo Mejias M.D. LAB BLOOD ADD-ON Performing Organization Address City/State/ZIP Code [facility] e Number [facility] LABORATORIES - [address] [place], [place] [address] [facility] Basic Metabolic Panel (03/29/2019 2:04 PM CDT) Analysis Performed At Patho logist Time Signature Potassium, P 4.0 3.6 - 5.2 03/29/2019 [facility] mmol/L 2:24 PM CDT [facility] Sodium, P 142 135 - 145 03/29/2019 [facility] mmol/L 2:24 PM CDT LABORATORIES [facility] Chloride, P 107 98 - 107 03/29/2019 [facility] mmol/L 2:24 PM CDT LAB[facility]ATORIES [facility] Bicarbonate, P 24 22 - 29 03/29/2019 [facility] mmol/L 2:24 PM CDT LAB[facility]ATORIES [facility] Anion Gap, P 11 7 - 15 03/29/2019 [facility] 2:24 PM CDT [facility] BUN (Blood Urea 17 6 - 21 03/29/2019 [facility] Nitrogen), P mg/dL 2:24 PM T [facility] Creatinine 0.81 0.59 - 03/29/2019 [facility] 1.04 mg/dL 2:24 PM T [facility] eGFR-Black/Afri >90 >=60 03/29/2019 [facility] can [facility] [place] mL/min/BSA 2:24 PM T [facility] Comment: ----ADDITIONAL INFORMATION---- Estimated GFR calculated using the 2009 CKD_EPI creatinine equation. eGFR Non-Black/ 82 >=60 mL/min/BSA 03/29/2019 2:24 PM [facility] [place] T [facility] Comment: ----ADDITIONAL INFORMATION---- Estimated GFR calculated using the 2009 CKD_EPI creatinine equation. Calcium, Total, P 8.7 8.6 - 10.0 mg/dL 03/29/2019 2:24 PM [facility] CDT [facility] Glucose, P 101 70 - 140 mg/dL 03/29/2019 2:24 PM [facility] Specimen Anatomical Collection Method Collection Time Receive d Time (Source) Location / / Volume Laterality Blood (Blood, 03/29/2019 2:04 PM 03/29/20 2:08 Venous) CDT PM CDT Eliseo Mejias M.D. LAB BLOOD ADD-ON Performing Organization Address City/State/ZIP Code Phon e Number [facility] LABORATORIES - [address] [place], [place] [address] [facility] documented in this encounter Visit Diagnoses [...] mg, oral, Bedtime PRN, sleep, Starting on Clementine 03/29/19 at 1727 enoxaparin injection 70 mg Given [...] Catheter and Rapid Infusion Catheter, Starting on Tue 9 at 1727, Prior to blood sampling, [...] oral, 2 times daily, First dose on Clementine 5/2/19 at 2100, Swallow whole. Do NOT crush, [...] Marlene Irwin R.N.) 0529 (Given - Provider: Sharifa McdonoughNBritton)1339 (Given - Provider: Sofie Sutton R.N.) 1,000 mg, oral, Every 8 hours scheduled, First dose on Tue 9 at 1600 acetaminophen tablet 650 mg (TYLENOL) (CANCELED) 1849 (Given - Provider: Steven Carrillo R.N.) 0208 (Given - Provider: Christiano Mcdonough)0917 (Given - Provider: Julieth Whitt RBrittonNBritton) 650 mg, oral, Every 8 hours, First dose on Clementine 03/29/19 at 1800 atorvastatin tablet 40 mg (LIPITOR) 2108 (Given - Provider: Marlene Irwin RBetsy) 40 mg, oral, Daily at bedtime, First dose on Tue03/30/19 at 2100 biotin capsule 5 mg (MERIBIN) 13 39 (Given - Provider: Sofie Sutton R.N.) 5 mg, oral, Daily, First dose (after last reorder) on 03/31/19 at 0900 biotin tablet 5 mg (CANCELED) 1322 (Give n - Provider: Julieth Whitt RBrittonNBritton) 5 mg, oral, Daily, First dose on Tue03/30/19 at 0900 cholecalciferol capsule 10,000 Units (VITAMIN D3) 0859 (Given - Provider: Julieth Whitt RBrittonN.) 0854 (Given - Provider: Christiano Gan) 10,000 Units, oral, Daily, First dose on Tue03/30/19 at 0900, cholecalciferol (vitamin D3) orderable was interchanged for cholecalciferol (vitamin D3) tablet/capsule cyanocobalamin tablet 2,000 mcg (VITAMIN B12) (CANCELED) 0859 (Given - Provider: Julieth Whitt, R.N.) 2,000 mcg, oral, Daily, First dose on Tue03/30/19 at 0900 cyanocobalamin tablet 5,000 mcg (VITAMIN B12) 0854 (Given - Provider: Sofie Sutton R.N.) 5,000 mcg, oral, Daily, First dose (afte r last modification) on Tue03/31/19 at 0900 cycloSPORINE 0.05 % ophthalmic emulsion 1 drop (RESTASIS) 2109 (Given - Provider: Sharifa AdanN.) 0855 (Given - Provider: Christiano GanN.) 1 drop, both eyes, 2 times daily, First dose (after last modification) on Tue03/30/19 at 2100 enoxaparin injection 70 mg (LOVENOX) 210 (Given - Provider: Marlene Irwin R.N.) 0900 (Given - Provider: Christiano GanN.) 70 mg, subcutaneous, 2 times daily, Firs [...] (FLONASE) 0859 (Given - Provider: Julieth Whitt R.N.) 0855 (Given - Provider: Sofie Sutton R.N.) 2 spray, each nostril, Daily, First dose on Tue03/30/19 at 0900 folic acid tablet 800 mcg 0859 (Given - Provider : Julieth Whitt R.N.) 0854 (Given - Provider: Sofie Sutton R.N.) 800 mcg, oral, Daily, First dose on Tue03/30/19 at 0900 furosemide tablet 40 mg (LASIX) (CANCELED) 0858 (Given - Provider: Julieth Whitt R.N.) 40 mg, oral, Daily, First dose on Tue03/30/19 at 0900 furosemide tablet 40 mg (LASIX) 1655 (Given - Pr ovider: Marlene Irwin R.N.) 0855 (Given - Provider: Sofie Sutton R.N.) 40 mg, oral, 2 times daily, First dose ( after last modification) on Tue03/30/19 at 1700 ipratropium-albuterol 0.5-2.5 mg/3 mL ne bulizer solution 3 mL (DUO-NEB) (CANCELED) 2019 (Not Given - Provider: Makenzie collado R.N. - Reason: Patient/family refused) 0906 (Given - Provider: Julieth Whitt R.N.) 3 mL, nebulization, 2 times daily, First dose on Tue03/29/19 at 2 100 lamoTRIgine tablet 200 mg (LaMICtal) 2020 (Given - Pro vider: Makenzie Childs R.N.) 0859 (Given - Provider: Julieth Velasquez R.N.)2106 (Given - Provider: Marlene Irwin R.N.) 0854 (Given - Provider: Christiano Gan) 200 mg, oral, 2 times daily, First dose on Tue03/29/19 at 2100 loratadine tablet 10 mg (CLARITIN) 0859 (Given - Provider: Julieth Velasquez RBrittonNBritton) 0855 (Given - Provider: Christiano Gan) 10 mg, oral, Daily, First dose on [...] 0900 (Not Given - Provider: Sofie valentine RBrittonN. - Reason: Patient/family refused) 17 g, oral, Daily, First dose on 03/30 at 0900, 17 g = 1 heaping Tablespoon. Dissolve in 240 mLs (8 ounces) of water prior to giving. Avoid mixing with starch-based thickened liquids. potassium chloride ER tablet 20 mEq (KLORCON/K-TAB) 0859 (Given - Provider: Julieth Whitt R.NBritton) 0855 (Given - Provider: Christiano Gan) 20 mEq, oral, Daily with breakfast, Firs t dose on Tue03/30/19 at 0800, potassium chloride orderable was interchanged for potassium chloride tablet/capsule Swallow whole. Do NOT crush, chew, or split tablet. pregabalin capsule 150 mg (LYRICA) (CANCELED) 2020 (Gi saeid - Provider: Makenzie Childs R.N.) 0858 (Given - Provider: Julieth Whitt RBetsy) 150 mg, oral, 2 times daily, First dose on Clementine 03/29/19 at 2100 pregabalin capsule 150 mg (LYRICA) [...] 12 hours schedu led, First dose on Tue19 at 2100, Peripheral Intravenous Catheter and Rapid [...] 2022 (Given - Pro vider: Makenzie Childs RBetsy) 0859 (Given - Provider: Julieth Velasquez RBetsy)2107 (Given - Provider: Marlene Irwin R.N.) 0854 (Given - Provider: Christiano Gan) 300 mg, oral, 2 times daily, First dose on Clementine 03/29/19 at 2100, Swallow whole. Do NOT crush, chew or open capsule. Continuous Medication Order 03/29/2019 03/30/2019 03/31/2019 heparin (porcine) 100 Units/mL in D5W 250 mL infusion () 1723 (New Bag - Provider: Steven Carrillo R.N.)1807 (Canceled Entry - Provider: Steven Carrillo R.N. - Comment: Due time populated when medication was pulled from the PIXIS. RN used the order due time instead.) 0730 (Handoff - Provider: Julieth Whitt RBrittonNBritton)2104 (Stopped - Provider: Marlene Irwin R.N.) 0-40 Units/kg/hr ? 72.6 kg Dosing weight (0-29.04 mL/hr), intravenous, Continuous, Starting on Clementine 03/29/19 at 1630, For 1 day 5 hours, Dose will be adjusted based on lab results and titrated per heparin 1906 (Handoff - Provider: Leticia Carson, R.N.) weight [...] of breath, Starting on Tue03/30/19 at 1112 albuterol nebulizer solution 2.5 mg (ACCUNEB) 2.5 mg, nebulization, Every 8 hours PRN, wheezing, shortness of breath, Starting Tue03/29/19 at 1723 alum-mag hydroxide-simeth 200-200-20 mg/5 mL [...] (BENADRYL) 2225 (Given - Provider: Marlene Irwin R.N.) 25 mg, oral, Bedtime PRN, sleep, Starting on Tue03/29/19 at 1727 docusate sodium 283 mg/5 mL enema 1 enema (ENEMEEZ) 1 enema, rectal, 2 times daily PRN, cons tipation, Starting Tue03/29/19 at 1735, If no bowel movement within 24 hours of starting bisacodyl fentaNYL injection (SUBLIMAZE) (COMPLETED) 1532 (Given - Provider: Ana oRsa Gordon R.N.)1534 (Given - Provider: Christiano Vaz.N.)1538 (Given - Provider: Christiano Vaz.N.)1554 (Given - Provider: Sharifa VazN.) Code/trauma/sedation medication, Starting on Tue03/30/19 at 1532 iohexol 350 mg iodine/mL solution 1-200 mL (OMNIPAQUE) (COMPLETED) 1528 (Given - Provider: rPincess Atkins R.N.) 1-200 mL, intravenous, Once in imaging, contrast, Starting on Tue03/29/19 at 1526, For 1 dose, Imaging Protocol Orders, Dose per Radiant Medication Guidelines lidocaine 4 % cream 1 application (LMX) 1 application, topical, 4 times daily CO N, mild pain or score 1-3 of 10, Starting Tue03/29/19 at 1730 lidocaine 5 % ointment 1 application (XYLOCAINE) 1517 (Given - Provider: Ana Rosa Gordon R.N.) 1 application, mouth/throat, As needed, mild pain [...] injection (VERSED) (COMPLETED) 1532 (Given - Provider: Christiano Vaz.N.)1534 (Given - Provider: Christiano Vaz.N.)1537 (Given - Provider: Christiano Vaz.N.)1540 (Given - Provider: Ana Rosa Gordon R.N.)1554 (Given - Provider: Ana Rosa Gordon R.N.) Code/trauma/sedation medication, Starting on Tue03/30/19 at 1532 [...] st Medications (Hazardous/Low Fluid Volume), Starting on Clementine 03/29/19 at 1726, Infuse at the same rate as the medication until tubing cleared of medication, then discard. naloxone injection 0.2 mg (NARCAN) 0.2 mg, intravenous, As needed, respirat ory depression, Starting Clementine 03/29/19 at 1742, For respiratory rate less than 8 breaths per minute or RASS score of -3, - 4, -5. Apply oxygen to keep oxygen saturations greater than 90% and notify service. nicotine 10 mg inhaler 1 puff (NICOTROL) 0956 (Given - Provider: Sofie Sutton RBrittonN.) 1 puff, inhalation, As needed, smoking c essation, Starting on Tue03/30/19 at 2251, Inhale with continuous puffing over 20 minutes; Initial 6 to 16 cartridges per day; MAX 16 cartridges per day. ondansetron ODT disintegrating tablet 4 mg (ZOFRAN-ODT) 4 mg, oral, Every 8 hours PRN, nausea, v omiting, Starting Clementine 03/29/19 at 1730, When splitting ODT at bedside, handle with gloves and a pill splitter to prevent moisture contact. oxyCODONE IR tablet 5 mg (ROXICODONE) 2345 (Given - Pr ovider: Makenzie Childs, R.N.) 0638 (Given - Provider: Makenzie Childs R .N.)1315 (Given - Provider: Julieth Whitt R.N.)6111 (Given - Provider: Marlene D Salwey, R.N.) 0334 (Given - Provider: Makenzie Childs, R.N.)1236 [...] mL 1728 (Given - Pro vider: Steven Carrillo, R.N.) 3 mL, intravenous, As needed, line care, [...] (ZANAFLEX) 1322 ( Given - Provider: Julieth Velasquez, R.N.)2225 (Given - Provider: Marlene Irwin R.N.) 1236 (Given - Provider: Jerica Keller, R.N.)1339 (Not Given - Provider: Sofie Sutton R.N. - Reason: Other - Comment: See previous administration) 2 mg, oral, Every 8 hours PRN, muscle sp asms, pain, Starting on Tue03/30/19 at 1040 Linked Groups Order Group 1: bisacodyl DR tablet 10 mg (DULCOLAX)Jump to med 10 mg, oral, 2 times daily PRN, constipa tion, Starting on Clementine 03/29/19 at 1735
Suppository is the preference. Swallow whole. Do NOT crush, chew, or split tablet.
Or bisacodyl suppository 10 mg (DULCOLAX)Jump to med 10 mg, rectal, 2 times daily PRN, vicky carrasco, Starting on Clementine 03/29/19 at 1735
Suppository is the preference.
documented in this encounter Additional Health Concerns Assessment Noted Time PHQ-9 Depression Total Score: 13 03/30/2019 1:48 PM CD T documented as of this encounter
--- OUTSIDE RECORDS SUMMARY | 2022-08-01 06:50 | XMS_ITS | Encounter Summary ---
:1965 Author Organization [facility] Address [address] [place] [address] Care Team Providers Name Role Phone Unavailable [...] you attend nondenominational or Patient refused 2021 yazdanism services? Do [...] 2:55 PM MST Indications: ?CP PATHWAY CALL [phone] IF POS ORIGINAL REPORT - 24-Jul-2009 14:55:00 [...] from the original. Indications: CP PATHWAY CALL [phone] IF PO S ORIGINAL REPORT - 24-Jul-2009 [...]
--- OUTSIDE RECORDS SUMMARY | 2022-08-01 06:50 | XMS_ITS | Encounter Summary ---
:1965 Author Organization [facility] Address [address] [place] [address] Care Team Providers Name Role Phone Unavailable Primary Care Provider Unavailable Reason for Visit Outpatient (Routine) - Closed Specialty Diagnoses / Procedures Referred By Contact Refer red To Contact Otorhinolaryngology Diagnoses Sinus Nose Disorder [facility]itis [facility] Lilian [address] [place] [address] Referral ID Status Reason Start Date Expiration Date Visits Requ ested Visits Authorized [id number] Closed 01/10/2019 01/10/2020 1 1 Encounter Details Date Type Department Care Team Description 03/01/2019 Comprehensive Visit Department of [place], Sinusit is Chronic (Primary Dx); Otorhinolaryngology in [place] , [facility] [address] [facility] [address] [place] [address] [place] [phone] Social History Tobacco Use Types Packs/Day Years [...] you attend lutheran or Patient refused 2021 denominational services? 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 Decongestion: no improvement with decongestion. Modified [facility]: not performed. Rigid exam with a 30 [...] obtained. - Obtained outside operative reports from [place] - Discussed risks and benefits including but [...]
--- OUTSIDE RECORDS SUMMARY | 2022-08-01 06:50 | XMS_ITS | Encounter Summary ---
:1965 Author Organization [facility] Address [address] [place] [address] Care Team Providers Name Role Phone Unavailable [...] you attend confucianism or Patient refused 2021 tenriism services? Do [...] Sig Dispensed Refills Start Date End Date cetirizine (ZyrTEC) 10 mg Take 10 mg [...] Take 1 mg two times a day. atorvastatin (LIPITOR) 40 Take 1 tablet (40 [...] times a day as needed for nausea. potassium chloride Take 20 mEq by 11 03/27/2019 (KLOR-CON SPRINKLE) 10 mEq mouth 2 (two) times ER sprinkle capsule a day. SUMAtriptan (IMITREX) 25 Take 25 mg by mouth 0 03/31/2019 mg tablet every 2 (two) hours as needed for migraine. Maximum of 200 mg in a 24 hour period. VIRTUSSIN AC 10-100 mg/5 TAKE 5 10ML [...]
--- OUTSIDE RECORDS SUMMARY | 2022-08-01 06:50 | XMS_ITS | Encounter Summary ---
:1965 Author Organization [facility] Address [address] [place] [address] Care Team Providers Name Role Phone Unavailable [...]
--- OUTSIDE RECORDS SUMMARY | 2022-08-01 06:50 | XMS_ITS | Encounter Summary ---
:1965 Author Organization [facility] Address [address] [place] [address] Care Team Providers Name Role Phone Unavailable [...] you attend protestant or Patient refused 2021 sabianist services? Do [...] 4:56 PM MST Narrative 07/06/2008 5:07 PM [facility] Indications: ?PNE PATHWAY CALL [phone] IF POS. ??TECHNOTE: NIPPLE PIERCINGS LUNG ARTIFACT. [...] from the original. Indications: PNE PATHWAY CALL [phone] IF P OS. TECHNOTE: NIPPLE PIERCINGS LUNG [...]
--- OUTSIDE RECORDS SUMMARY | 2022-08-01 06:50 | XMS_ITS | Encounter Summary ---
:1965 Author Organization [facility] Address [address] [place] [address] Care Team Providers Name Role Phone Unavailable [...] you attend orthodox or Patient refused 2021 episcopal services? Do [...]
--- OUTSIDE RECORDS SUMMARY | 2022-08-01 06:50 | XMS_ITS | Encounter Summary ---
:1965 Author Organization [facility] Address [address] [place] [address] Care Team Providers Name Role Phone Unavailable Primary Care Provider Unavailable Encounter Details Date Type Department Care Team Description 09/25/2015 Hospital Encounter HX [facility] Hernesto Watson M.D. [address] [facility], [address] [place] [address] (Wo rk) Social History Tobacco [...] Sig Dispensed Refills Start Date End Date alum-mag Take 30 mL by mouth 0 01/16/201002/02 hydroxide-simeth (MAALOX every 4 (four) hours ADVANCED) 200-200-20 as needed for mg/5 mL suspension indigestion or heartburn. ondansetron ODT Take 1 tablet by 0 01/16/2010 (ZOFRAN-ODT) 8 mg mouth 3 (three) times disintegrating tablet a day as needed for nausea. ARIPiprazole (ABILIFY) 2 Take 2 mg by [...] KUNZ LPN On: 09/25/2015 03:38 PM Source: [facility] POWERCHART Document Id: [id number] documented in this encounter Miscellaneous Notes Telephone Encounter - Conversion, Historical Provider Ser - 05/11/2017 11:32 AM CDT *Phone Message/Dr. Watson Document Contains Addenda Addendum by IVY BENITEZ on May 11, 2017 13:27:22 CDT From: IVY BENITEZ ( [place] [employer] Sales Consultant) To: Physical Medicine and Rehabilitation Staff; Sent: 05/11/2017 13:27:22 CDT Subject: RE: *Phone Message/Dr. Watson Left message on patients phone regarding this appointment. Addendum by NIKKIE GANDHI LPN on May 11, 2017 12:57:21 CDT From: NIKKIE GANDHI LPN ( Physical Medicine and Rehabilitation Staff) To: [place] [employer] Consultant; Sent: 05/11/2017 12:57:21 CDT Subject: RE: *Phone Message/Dr. Watson 27th noon, please reschedule. From: IVY BENITEZ ( [place] [employer] Consultant) To: Physical Medicine and Rehabilitation Staff; Sent: [...] come today, she would like it rescheduled [facility] since Dr. Romero wanted her to have it done. Please call her back at [phone] to advise. Advice/Action: Source used: ( ) [...] back cell phone number ( ) [facility] Document Id: [id number] Miscellaneous - Nikkie Gandhi L.P.N. - 05/04/2017 4:19 PM CDT *General Message Document Contains Addenda Addendum by ISIDRO HI on May 04, 2017 16:42:57 CDT From: ISIDRO HI ( [place] [employer] Consultant) To: Physical Medicine and Rehabilitation Staff; Sent: 05/04/2017 16:42:57 CDT Subject: RE: *General Message Called patient and scheduled as requested. From: NIKKIE GANDHI LPN ( Physical Medicine and Rehabilitation Staff) To: [place] [employer] Consultant; Sent: 05/04/2017 16:19:56 CDT Subject: *General Message Please call patient to schedule for bilateral upper extremity EMG. 05/11/17 at 11:45 am. 1 hour Source: [employer] Document Id: [id number] Electronically signed by Avinash [facility]. [facility] Riverside Hospitalzen Scientific Software Engineer [id number] at 06/01/2017 1:18 AM CDT documented in this encounter Plan of Treatment Not on filedocumented as of this encounter Visit Diagnoses Not on filedocumented in this encounter
--- OUTSIDE RECORDS SUMMARY | 2022-08-01 06:50 | XMS_ITS | Encounter Summary ---
:1965 Author Organization [facility] Address [address] [place] [address] Care Team Providers Name Role Phone Unavailable [...] you attend uatsdin or Patient refused 2021 jainism services? Do [...] 2:53 PM MST Narrative 08/16/2008 3:27 PM [facility] Indications: ?CHEST PAIN tech: Pt stated nipple [...] Lead with rhythm strip (08/16/2008 12:00 AM [facility]) Specimen (Source) Anatomical Location Collection Method / Collectio n Time Received Time / Laterality Volume 08/16/2008 Historical Provider ECG ORDERABLES Performing Organization Address City/State/ZIP Code Phon e Number HX [place] CONVERSION documented in this encounter Visit Diagnoses Not on filedocumented in this encounter
--- OUTSIDE RECORDS SUMMARY | 2022-08-01 06:50 | XMS_ITS | Encounter Summary ---
:1965 Author Organization [facility] Address [address] [place] [address] Care Team Providers Name Role Phone Unavailable Primary Care Provider Unavailable Encounter Details Date Type Department Care Team Description 06/21/2017 Hospital Encounter HX [facility] Hernesto Watson M.D. [address] [facility], [address] [place] [address] (Wo rk) Social History Tobacco Use Types [...] you attend hoahaoism or Patient refused 2021 orthodox services? Do [...] Sig Dispensed Refills Start Date End Date polyethylene glycol Take 17 g by mouth as 0 04/11 (MIRALAX) 17 gram/dose needed for oral powder constipation. alum-mag Take 30 mL by mouth 0 01/16/201002/02 hydroxide-simeth (MAALOX every 4 (four) hours ADVANCED) 200-200-20 as needed for mg/5 mL suspension indigestion or heartburn. fluticasone propionate Administer 2 sprays 0 04/2802/02/2021 (FLONASE) 50 into affected mcg/actuation nasal nostril(s) at spray bedtime. lidocaine (LIDODERM) 5 % Apply 1 patch to 0 01/1902/02/2021 painful area of skin for up to 12 hours within a 24-hour period as needed for pain ondansetron ODT Take 1 tablet by 0 01/16/2010 (ZOFRAN-ODT) 8 mg mouth 3 (three) times disintegrating tablet a day as needed for nausea. ARIPiprazole (ABILIFY) 2 Take 2 mg by mouth 0 03/01/2019 mg tablet daily. methocarbamol (ROBAXIN) Take 1 tablet by 0 201603/01/2019 500 mg tablet mouth. NON FORMULARY Take by mouth every 6 0 07/24/2009 03/29/2019 (six) hours. documented as of this encounter Procedure Notes Sergio Watson M.D. - 06/21/2017 12:00 AM CDT 1EMG EMG EIGHT SECTION BLOWER Sergio Watson MD ([phone]) REFERRED BY Dr. Romero. REFERRED FOR Ms. Bender is a very pleasant 52-year-old female who [...] WATSON MD On: 06/21/2017 03:10 PM Source: [facility] MHSDOLBEYNONRADSYS Document Id: [id number] documented in this encounter Miscellaneous Notes Miscellaneous - Sergio Watson, M.D. - 06/21/2017 2:19 PM CDT Ambulatory Discharge Medication List [address] [id number] Visit Information Name: KAYLIN BENDER [facility] Number: [id number] Current Date: 06/21/2017 14:19:38 Attending Provider: SERGIO WATSON MD Primary Care Provider: PCP, ELSEWHERE KAYLIN BEDNER has been given the following list of [...] MD Signed On:21-JUN-2017 14:19:21 Additional Information: Source: [facility] POWERCHART Document Id: [id number] Reema - Sergio Watson M.D. - 06/21/2017 2:19 PM CDT Ambulatory Patient Summary [address] [id number] Visit Information Name: KAYLIN BENDER [facility] Number: [id number] Current Date: 06/21/2017 14:19:38 Physicians Attending Provider: SERGIO WATSON MD Primary Care Provider: PCP, ELSEWHERE KAYLIN BENDER has been given the following list of [...] if you dont have one. Go to [email or web address] and click on Create Your Account. Then, follow the directions to complete the online form. Youll be asked for your [facility] number which you can find at the top of this document. Your Goals/Additional instructions: Source: [facility] POWERCHART Document Id: [id number] Miscellaneous - Ayla Mcmanus, L.P.N. - 06/21/2017 1:25 PM CDT Adult Spring Assembler Supervisor Intake/History Adult Spring Assembler Supervisor Intake/History Entered On: 06/21/2017 13:26 CDT Performed On: 06/21/2017 13:25 CDT by MARIETTA, AYLA J AUDIT LEAD Intake Systolic Blood Pressure : 124 mmHg Diastolic Blood Pressure : 62 mmHg NIBP Mean : 83 mmHg BP Location : Left upper extremity Blood Pressure Cuff Size : Regular Actual Weight : 70.55 kg(Converted to: 155 lb 9 oz) Dosing Weight Clinic : 70.55 kg AYLA MCMANUS LPN - 06/21/2017 13:25 CDT General Info Information Given By : Patient Languages : Belizean Is Patient Female and 13-50 no hysterectomy [...] MCMANUS LPN - 06/21/2017 13:25 CDT Source: [facility] POWERCHART Document Id: [id number] CDT!24 documented in this encounter Plan of Treatment Not on filedocumented as of this encounter Visit Diagnoses Not on filedocumented in this encounter
--- OUTSIDE RECORDS SUMMARY | 2022-08-01 06:50 | XMS_ITS | Encounter Summary ---
:1965 Author Organization [facility] Address [address] [place] [address] Care Team Providers Name Role Phone Unavailable [...]
--- OUTSIDE RECORDS SUMMARY | 2022-08-01 06:50 | XMS_ITS | Encounter Summary ---
:1965 Author Organization [facility] Address [address] [place] [address] Care Team Providers Name Role Phone Unavailable Primary Care Provider Unavailable Encounter Details Date Type Department Care Team Description 02/03/2009 - Hospital Encounter HX [place] NO MAPPING Provider, Jadyn ohugh 02/04/2009 Social History Tobacco Use Types Packs/Day [...] you attend anabaptist or Patient refused 2021 catholic services? Do [...] 9:46 PM MST Indications: ?CP PATHWAY CALL [phone] IF POS ?? tech: pt. not and [...] from the original. Indications: CP PATHWAY CALL [phone] IF PO S tech: pt. not and [...] Lead with rhythm strip (02/03/2009 12:00 AM [facility]) Specimen (Source) Anatomical Location Collection Method / Collectio n Time Received Time / Laterality Volume 02/03/2009 Historical Provider ECG ORDERABLES Performing Organization Address City/State/ZIP Code Phon e Number HX [place] CONVERSION documented in this encounter Visit Diagnoses Not on filedocumented in this encounter
--- OUTSIDE RECORDS SUMMARY | 2022-08-01 06:50 | XMS_ITS | Encounter Summary ---
:1965 Author Organization [facility] Address [address] [place] [address] Care Team Providers Name Role Phone Unavailable Primary Care Provider Unavailable Reason for Visit Reason Onset Date Comments [facility] Med Request 03/30/2019 Encounter Details Date Type Department Care Team Description 03/30/2019 Clinical Communication [facility] Med Request Nicotine Kenna Bose M.S., [place], [facility] in [place], [place] [address] [place] [address] Social History Tobacco Use Types Packs/Day Years [...] you attend worship or Patient refused 2021 jainism services? Do [...] CDT Please send the following to the [facility] 1) 14 mg patch 2) [...]
--- OUTSIDE RECORDS SUMMARY | 2022-08-01 06:50 | XMS_ITS | Encounter Summary ---
:1965 Author Organization [facility] Address [address] [place] [address] Care Team Providers Name Role Phone Unavailable [...] you attend protestant or Patient refused 2021 oriental orthodox services? [...]
--- OUTSIDE RECORDS SUMMARY | 2022-08-01 06:50 | XMS_ITS | Encounter Summary ---
:1965 Author Organization [facility] Address [address] [place] [address] Care Team Providers Name Role Phone Unavailable [...] you attend mu-ism or Patient refused 2021 presybeterian services? Do [...]
--- OUTSIDE RECORDS SUMMARY | 2022-08-01 06:50 | XMS_ITS | Encounter Summary ---
:1965 Author Organization [facility] Address [address] [place] [address] Care Team Providers Name Role Phone Unavailable Primary Care Provider Unavailable Reason for Visit Reason Onset Date Comments Prior Medical Records/Sinus CT 03/02/2019 Encounter Details Date Type Department Care Team Description 03/02/2019 Clinical Department of Honorio, Prior Medical Communication Otorhinolaryngology in [place] rds/Sinus CT [place], [place] Lilian [address] [facility] [address] [place] [address] [place] [address] Social History Tobacco Use Types Packs/Day Years [...] you attend baptism or Patient refused 2021 episcopalian services? Do [...] 8:13 AM CDT Per Kaykay (Dr. Olmedo), [facility] (Dr. Mckeon) ([phone]) was contacted. The previousmedical records have been received and sent for scanning into pt's chart. [facility] recent [facility] CD scan will be pushed. Coby documented in this encounter Plan of Treatment Not on filedocumented as of this encounter Visit Diagnoses Not on filedocumented in this encounter
--- OUTSIDE RECORDS SUMMARY | 2022-08-01 06:50 | XMS_ITS | Encounter Summary ---
:1965 Author Organization [facility] Address [address] [place] [address] Care Team Providers Name Role Phone Unavailable [...] you attend congregation or Patient refused 2021 restoration services? Do [...]
--- OUTSIDE RECORDS SUMMARY | 2022-08-01 06:50 | XMS_ITS | Encounter Summary ---
:1965 Author Organization [facility] Address [address] [place] [address] Care Team Providers Name Role Phone Elsewhere, Pcp Primary Care Provider Unavailable Reason for Referral Outpatient (Routine) - Closed Specialty Diagnoses / Procedures Referred By Contact Refer red To Contact Otorhinolaryngology Diagnoses Sinus Nose Disorder Sinusitis Chronic Chris Mckeon [place] M.D. 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
--- OUTSIDE RECORDS SUMMARY | 2022-08-01 06:50 | XMS_ITS | Encounter Summary ---
:1965 Author Organization [facility] Address [address] [place] [address] Care Team Providers Name Role Phone Unavailable [...] you attend restoration or Patient refused 2021 taoism services? Do [...] encounter Results [place] Esophagram (08/24/2007 10:57 AM [facility]) Anatomical Region Laterality Modality Gastro Intestinal, Abdominal RST LOS N/A Rad iographic Imaging Specimen (Source) Anatomical Collection Method Collection Time Re ceived Time Location / / Volume Laterality 08/24/2007 10:57 AM MST Narrative 08/24/2007 11:41 AM [facility] Indications: ?STATUS POST GASTRIC BYPASS ORIGINAL REPORT [...]
--- OUTSIDE RECORDS SUMMARY | 2022-08-01 06:50 | XMS_ITS | Encounter Summary ---
:1965 Author Organization [facility] Address [address] [place] [address] Care Team Providers Name Role Phone Unavailable [...] you attend alevism or Patient refused 2021 orthodoxy services? Do [...]
--- OUTSIDE RECORDS SUMMARY | 2022-08-01 06:50 | XMS_ITS | Encounter Summary ---
:1965 Author Organization [facility] Address [address] [place] [address] Care Team Providers Name Role Phone Unavailable Primary Care Provider Unavailable Encounter Details Date Type Department Care Team Description 01/15/2010 - Hospital Encounter HX ARZ NO MAPPING Leonides Du, 01/16/2010 Lilian [address] [place] [address] Social History Tobacco Use Types [...] you attend judaism or Patient refused 2021 christian services? Do [...] encounter Results [place] Esophagram (01/15/2010 9:36 PM [facility]) Anatomical Region Laterality Modality Gastro Intestinal, Abdominal RST LOS N/A Rad iographic Imaging Specimen (Source) Anatomical Collection Method Collection Time Re ceived Time Location / / Volume Laterality 01/15/2010 9:36 PM [facility] Narrative 01/15/2010 9:43 PM [facility] Indications: ?STATUS POST GASTRIC BYPASS ORIGINAL [...] by: Mamta Cabrera M.D. 15-Jan-2010 21:43 Leonides NIELSON FLUOROSCOPY PROCEDURES documented in this encounter Visit Diagnoses Not on filedocumented in this encounter
--- OUTSIDE RECORDS SUMMARY | 2022-08-01 06:50 | XMS_ITS | Encounter Summary ---
:1965 Author Organization [facility] Address [address] [place] [address] Care Team Providers Name Role Phone Unavailable [...] you attend restoration or Patient refused 2021 episcopal services? Do [...] Address City/State/ZIP Code Phon e Number [place] CONVERSION documented in this encounter Visit Diagnoses Not on filedocumented in this encounter
--- OUTSIDE RECORDS SUMMARY | 2022-08-01 06:50 | XMS_ITS | Encounter Summary ---
:1965 Author Organization [facility] Address [address] [place] [address] Care Team Providers Name Role Phone Unavailable [...] you attend sikh or Patient refused 2021 baptism services? Do [...] Pelvis with IV Contrast (09/02/2007 1:17 AM [facility]) Anatomical Region Laterality Modality Pelvis, Abdominal RST LOS N/A Computed Tomog chato Specimen (Source) Anatomical Collection Method Collection Time Re ceived Time Location / / Volume Laterality 09/02/2007 1:17 AM [facility] Addenda Addendum by Elmo Cabrera M.D. on 03/2007 11:40 PM [facility] APPENDED REPORT - 02-Sep-2007 01 :40:00 CT Abdomen w/ Contrast CT Pelvis W Contrast Appended to link all pertinent exams to report. ? Electronically signed by: ?? Mamta Cabrera M.D. 02-Sep-2007 01:40 Narrative 09/02/2007 1:40 AM [facility] Indications: ?R/O ABCESS, POSTOP ORIGINAL REPORT [...] Abdomen with IV Contrast (09/02/2007 1:17 AM [facility]) Anatomical Region Laterality Modality Abdomen, Abdominal RST LOS N/A Computed [place] graphy Specimen (Source) Anatomical Collection Method Collection Time Re ceived Time Location / / Volume Laterality 09/02/2007 1:17 AM [facility] Addenda Addendum by Elmo Cabrera M.D. on 03/2007 11:40 PM [facility] APPENDED REPORT - 02-Sep-2007 01 :40:00 CT Abdomen w/ Contrast CT Pelvis W Contrast Appended to link all pertinent exams to report. ? Electronically signed by: ?? Mamta Cabrera M.D. 02-Sep-2007 01:40 Narrative 09/02/2007 1:40 AM [facility] Indications: ?R/O ABCESS, POSTOP ORIGINAL REPORT [...]
[2022-08-01 07:03] LABS: Basophils Percent Auto 0.5 % (0.0-3.0); Eosinophils Percent Auto 4.3 % (0.0-7.0); Hematocrit 34.4 % (33.0-51.0); Hemoglobin* 11.1 gm/dL (12.0-16.0); Lymphocytes Percent Auto 32.2 % (20-44); Mean Corpuscular HGB Conc 32 gm/dL (32-36); Mean Corpuscular Hemoglobin 29 pg (26-34); Mean Corpuscular Volume 88 fL (80-100); Monocytes Percent Auto 10.1 % (0.0-11.0); Neutrophils Percent Auto 52.9 % (42.0-72.0); Platelet Count* 241 K/uL (140-440); RDW Coefficient of Variation % 24.4 % (11.5-15.5); White Blood Count* 3.95 K/uL (4.50-11.00)
[2022-08-01 07:07] LABS: Slide Review Reflex No
[2022-08-01 07:16] LABS: Albumin* 3.7 g/dL (3.3-5.0)
[2022-08-01 07:17] LABS: Chloride* 106 mmol/L (96-114); Sodium* 139 mmol/L (135-149)
[2022-08-01 07:19] LABS: Aspartate Amino Transferase* 22 U/L (12-35); Bilirubin Direct* 0.1 mg/dL (0.0-0.5); Bilirubin Total* 0.1 mg/dL (0.1-1.5); Blood Urea Nitrogen* 18 mg/dL (7-30); Carbon Dioxide* 26 mmol/L (20-32); Creatinine* 0.6 mg/dL (0.5-1.5); Est. Creatinine Clearance* 97.59; Estimated Glomerular Filt Rate 103 ml/min; Total Protein* 6.5 g/dL (6.0-8.3)
[2022-08-01 07:20] LABS: Alanine Aminotransferase* 19 U/L (4-35); Alkaline Phosphatase* 88 U/L (40-150); Calcium* 8.6 mg/dL (8.4-10.6); Glucose* 110 mg/dL (60-115)
--- OUTSIDE RECORDS SUMMARY | 2022-08-01 07:33 | XMS_ITS | Continuity of Care Document ---
:1965 Author Organization [facility] Address [address] [place] [id number] Care Team Providers Name Role Phone Mor Singleton CRNA Unavailable Unavailable Procedures Procedure Date ANESTH, HEAD/NECK/PTRUNK ANESTH PERC IMG TX SP PROC ANESTH PERC IMG TX SP PROC Advance Directives Directive Yes / No Effective Date File Name No Information Encounters Encounter Practice Location Reason(s) Diagnoses Date Provider Provide rs Description For Visit Copied on Encounter [facility] No Areli Referring [facility]. Provider: Lois CISNEROS Surgery [address] [place] [address], [place] [facility] [address] [place] [id number], [facility], [place], [place], [place], [place], [id number], [id number] [place]. . tel:[phone] tel:[phone] [facility] No [facility] Referring Anesthesia [facility] -2019 [place]. Provider: Lois CISNEROS Surgery [address] [facility], [facility] [place], [address] [id number], [id number], [facility]. [facility] tel:[phone] [place], [place], [phone] . tel:[phone] [facility] No [facility] Referring Anesthesia [facility] -2019 [place]. Provider: [place], [address] [facility] [address], [place], Endy J, [place], [place], [place], [address] [facility] [id number], [id number], John, [facility]. Denisa tel:[phone] [place], [place], [phone] . tel:[phone] Family History Family Member Type Diagnosis Age At Onset No Information Payers Payer name Insurance type Covered alliance party ID Authorization(s ) Medicare MB [id number] Medica [facility] [id number] Social History Type Description Quantity Date Captured [...]
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
--- OUTSIDE RECORDS SUMMARY | 2022-08-01 07:33 | XMS_ITS | Continuity of Care Document ---
:1965 Author Organization [facility] Address [address] [place] [address] Care Team Providers Name Role Phone [facility] Unavailable Unavailable Procedures Procedure Date IMPLANT [...] Visit Copied on Encounter [facility] Provider: Surgery Surgery Surgery [facility]. David, [address], [place], [place], [place] [id number], [place], [place], , [place] [id number], [phone]. [place]. tel: [phone] [facility] Twin Referring [address] Provider: Surgery [facility]. David, [address], [place], [place] [id number], [place], , [place] [id number], [phone]. [place]. tel: tel:[phone] [facility] [address] Provider: Surgery Surgery Surgery [facility]. Jose [address] [facility] [address], [facility], [place], [place] , [place], [id number], [place], [address]. [place] [id number], tel: [phone] tel:[phone] Family History Family Member Type Diagnosis Age At Onset No Information Payers Payer name Insurance type Covered republican ID Authorization(s ) Medicare [id number] Medica [facility] [id number] Social History Type Description Quantity Date Captured [...]
--- OUTSIDE RECORDS SUMMARY | 2022-08-01 07:34 | XMS_ITS | Continuity of Care Document ---
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 TELEMEDICINE Pain [place] complaint) migraine without 2 [address] [facility], aura, intractable, John, [address] without status [place], migrainosusOsteoar is, [place], Caterina, thritisPain in [id number] [place], left shoulderPain , [place]. [id number] in left hipPain in tel:+ , US right hipPain in [id number] tel:+ left kneePain in [id number] right kneeOther spondylosis, cervical regionOther spondylosis, lumbar regionRadiculopath y, lumbar regionPain in thoracic spineFibromyalgiaP ostlaminectomy syndrome, not elsewhere classifiedLong term (current) use of opiate analgesic OFFICE VISIT, [facility] Back Pain OsteoarthritisChro K [facility] (chief saul migraine [place]. Provide r: TELEMEDICINE Pain [place] complaint) without aura, [facility], intractable, John, Will J, [address] without status [place] [address] John, migrainosusAnxiety is, [place], John, Caterina, disorder, [id number] [place], unspecifiedPain in , [place]. s, [place] , [id number] left shoulderPain tel: [phone] , [place] in left hipPain in [id number] . tel: right hipPain in tel:2 [phone] left kneePain in 932626 5 right kneeOther spondylosis, cervical regionOther spondylosis, lumbar regionRadiculopath y, lumbar regionPain in thoracic spinePostlaminecto my syndrome, not elsewhere classifiedFibromya lgiaLong term (current) use of opiate analgesic OFFICE VISIT, [facility] Pain in left [facility] (chief shoulderAnxiety [place]. TELEMEDICINE Pain [place] complaint) disorder, [address] [facility], unspecifiedChronic John, [address] migraine without [place] John, aura, intractable, is, [place], Caterina, without status [id number] [place], migrainosusOsteoar , [place]. [id number] thritisPain in tel: , US right hipPain in 68728058 tel: left hipPain in 88806275 left kneePain in right kneeOther spondylosis, cervical regionOther spondylosis, lumbar regionRadiculopath y, lumbar regionPain in thoracic spinePostlaminecto my syndrome, not elsewhere classifiedFibromya lgiaLong term (current) use of opiate analgesic OFFICE VISIT, [facility] Pain in left [facility] (chief hipAnxiety [place]. TELEMEDICINE Pain [place] complaint) disorder, [address] [facility], unspecifiedChronic John, [address] migraine without [place] John, aura, intractable, is, [place], [place], without status [id number] [place], migrainosusOsteoar , US. [id number] thritisPain in tel: , US left shoulderPain [id number] tel: in right hipPain 50687514 in left kneePain in right kneeOther spondylosis, cervical regionOther spondylosis, lumbar regionRadiculopath y, lumbar regionPain in thoracic spineFibromyalgiaP ostlaminectomy syndrome, not elsewhere classifiedLong term (current) use of opiate analgesic [facility] No Information [facility] [place]. Pain Caterina 2 [address] [facility], John, [address] [place], is, [place], C[place], [id number] [place], , [place]. [id number] tel: , [place] [id number] tel: [phone] OFFICE/OUTPAT [facility] Anxiety disorder, Ka [facility] Referring IENT VISIT, [facility] (chief unspecifiedChronic [place] . Provider: EST Pain [place] complaint) migraine without 2 [address] [facility], aura, intractable, John, Will J, [address] without status [place] [address] John, migrainosusOsteoar is, [place], John, Caterina, thritisPain in [id number] [place], left shoulderPain , [place]. s, [place], 479363558 in left hipPain in tel: [phone] , US right hipPain in 89721713 . tel: left kneePain in tel:2 [phone] right kneeOther [id number] spondylosis, cervical regionOther spondylosis, lumbar regionRadiculopath y, lumbar regionPain in thoracic spineFibromyalgiaP ostlaminectomy syndrome, not elsewhere classifiedLong term (current) use of opiate analgesic OFFICE VISIT, [facility] Chronic migraine Jan- Jens gas [facility] (chief without aura, [place]. TELEMEDICINE Pain [place] complaint) intractable, 2 [address] [facility], without status John, [address] migrainosusAnxiety [place] John, disorder, is, [place], [place], unspecifiedOsteoar [id number] [place], thritisPain in , US. 950276520 left shoulderPain tel: , US in right hipPain [id number] tel: in left hipPain in 79253985 right kneePain in left kneeOther spondylosis, cervical regionOther spondylosis, lumbar regionRadiculopath y, lumbar regionPain in thoracic spineFibromyalgiaP ostlaminectomy syndrome, not elsewhere classifiedLong term (current) use of opiate analgesic [facility] [place]. Provider: Pain [place] 2 [address] [facility], John Will J, [address] [place] [address] John, is, [place], John, [place], [id number] [place], , [place]. s, [place], [id number] tel: [phone] , [place] [id number] . tel: tel: [phone] OFFICE VISIT, [facility] Radiculopathy, [facility] (chief lumbar [place]. TELEMEDICINE Pain [place] complaint) regionPostlaminect 2 [address] [facility], marquis syndrome, not John, [address] elsewhere [place] John, classifiedPain in is, [place], Caterina, left hipAnxiety [id number] MN, disorder, , US. [id number] unspecifiedPain in tel: , US thoracic [id number] tel: spineOsteoarthriti [phone] sChronic migraine without aura, intractable, without status migrainosusPain in right hipPain in left shoulderPain in right kneePain in left kneeFibromyalgiaOt her spondylosis, lumbar regionOther spondylosis, cervical regionLong term (current) use of opiate analgesicEncounter for therapeutic drug level monitoring OFFICE VISIT, [facility] Radiculopathy, [facility] (chief lumbar [place]. Provider: TELEMEDICINE Pain [place] complaint) regionPostlaminect 2 [address] [facility], marquis syndrome, not John, Will J , [address] elsewhere [place] [address] John classifiedPain in is, [place], John, [place], left hipAnxiety [id number] Augusta fischer [place], disorder, , [place]. s, [place], 379355586 unspecifiedPain in tel: [phone] , [place] thoracic [id number] . tel: spineOsteoarthriti tel : [phone] sChronic migraine 77594 45 without aura, intractable, without status migrainosusPain in right hipPain in left shoulderPain in right kneePain in left kneeFibromyalgiaOt her spondylosis, lumbar regionOther spondylosis, cervical regionLong term (current) use of opiate analgesic OFFICE VISIT, [facility] Radiculopathy, [facility] Referring [facility] (chief lumbar [place]. Provider: TELEMEDICINE Pain [place] complaint) regionPostlaminect 2 7[address] [facility], marquis syndrome, not Endy Lopez J , [address] elsewhere [place] [address] John classifiedPain in is, [place], John, [place], left hipAnxiety [id number] Augusta fischer [place], disorder, , [place]. s, MN, 158876393 unspecifiedPain in tel: [phone] , [place] thoracic [id number] . tel: spineOsteoarthriti tel : [phone] sChronic migraine 65845 45 without aura, intractable, without status migrainosusPain in right hipPain in left shoulderPain in right kneePain in left kneeFibromyalgiaOt her spondylosis, lumbar regionLong term (current) use of opiate analgesicOther spondylosis, cervical region OFFICE VISIT, [facility] Radiculopathy, [facility] (chief lumbar [place]. TELEMEDICINE Pain [place] complaint) regionPostlaminect 1 [address] [facility], marquis syndrome, not John, [address] elsewhere [place] John classifiedPain in is, [place], [place], left hipAnxiety [id number] MN, disorder, , US. [id number] unspecifiedPain in tel: , [place] thoracic 70178299 tel: spineOsteoarthriti [phone] sChronic migraine without aura, intractable, without status migrainosusPain in right hipPain in left shoulderPain in right kneePain in left kneeFibromyalgiaOt her spondylosis, lumbar regionLong term (current) use of opiate analgesicOther spondylosis, cervical region OFFICE/OUTPAT [facility] Other spondylosis, shlomo Referring IENT VISIT, [facility] (chief cervical [place]. Provide r: EST Pain [place] complaint) regionRadiculopath 1 [address] [facility], y, lumbar John, Will J, [address] regionPostlaminect [place] [address] John, marquis syndrome, not is, [place], John, Caterina, elsewhere [id number] [place], classifiedPain in , [place]. s, MN, 326783525 left hipAnxiety tel: [phone] , [place] disorder, 81496649 . tel: unspecifiedPain in tel :2 [phone] thoracic 1932532 spineOsteoarthriti sChronic migraine without aura, intractable, without status migrainosusPain in right hipPain in left shoulderPain in right kneePain in left kneeFibromyalgiaOt her spondylosis, lumbar regionLong term (current) use of opiate analgesic OFFICE VISIT, [facility] Other spondylosis, anglucrecia EST [facility] (chief cervical [place]. TELEMEDICINE Pain [place] complaint) regionRadiculopath 1 [address] [facility], y, lumbar John, [address] regionPostlaminect [place] John, amrquis syndrome, not is, [place], [place], elsewhere [id number] [place], classifiedPain in , US. 928439239 left hipAnxiety tel: , [place] disorder, [id number] tel: unspecifiedPain in 62389922 thoracic spineOsteoarthriti sChronic migraine without aura, intractable, without status migrainosusPain in right hipPain in left shoulderPain in right kneePain in left kneeFibromyalgiaOt her spondylosis, lumbar regionLong term (current) use of opiate analgesic OFFICE VISIT, [facility] Other spondylosis, Sep- K shlomo Referring [facility] (chief cervical [place]. Provider: TELEMEDICINE Pain [place] complaint) regionRadiculopath 1 [address] [facility], y, lumbar John, Will J, [address] regionPostlaminect [place] [address] John, marquis syndrome, not is, [place], John, Caterina, elsewhere [id number] [place], classifiedPain in , [place]. s, MN, 290815740 left hipAnxiety tel: [phone] , [place] disorder, 92248488 . tel: unspecifiedPain in tel : [phone] thoracic 1759515 spineOsteoarthriti sChronic migraine without aura, intractable, without status migrainosusPain in right hipPain in left shoulderPain in right kneePain in left kneeFibromyalgiaOt her spondylosis, lumbar regionLong term (current) use of opiate analgesic [facility] Encounter for Mario Referr ing [facility] therapeutic drug [place]. Pro vider: Pain [place] level 1 7[address] [facility], monitoringLong John, Will J, [address] term (current) use [place] [address] John, of opiate is, [place], John, [place], analgesic [id number] [place], , [place]. s, [place], 168256958 tel: [phone] , [place] [id number] . tel: tel: [phone] OFFICE/OUTPAT [facility] Other spondylosis, Aug-0 K shlomo Referring IENT VISIT, [facility] (chief lumbar [place]. Provider : EST Pain [place] complaint) regionFibromyalgia 1 [address] [facility], Pain in left John, Will J, [address] kneePain in right [place] [address] John, kneePain in left is, [place], John, Caterina, shoulderPain in 798961355 [place], right hipChronic , [place]. s, MN, 409509753 migraine without tel:+ [phone] , [place] aura, intractable, [id number] . tel: without status tel:+ [phone] migrainosusOsteoar 8412 345 thritisPain in thoracic spineAnxiety disorder, unspecifiedPain in left hipPostlaminectomy syndrome, not elsewhere classifiedRadiculo shane, lumbar regionOther spondylosis, cervical regionLong term (current) use of opiate analgesicEncounter for therapeutic drug level monitoring OFFICE VISIT, [facility] Other spondylosis, [facility] Referring [facility] (chief lumbar [facility]. Provider: TELEMEDICINE Pain [place] complaint) regionFibromyalgia 1 [address] [facility], Pain in left John, Will J, [address] kneePain in right [place] 72 [address] John, kneePain in left is, [place], John, [place], shoulderPain in 592273746 Augusta fischer [place], right hipChronic , [place]. s, MN, 426660107 migraine without tel:+ [phone] , [place] aura, intractable, 18410602 . tel: without status tel: [phone] migrainosusOsteoar 8412 345 thritisPain in thoracic spineAnxiety disorder, unspecifiedPain in left hipPostlaminectomy syndrome, not elsewhere classifiedRadiculo shane, lumbar regionOther spondylosis, cervical regionLong term (current) use of opiate analgesic OFFICE VISIT, [facility] Other spondylosis, Kanu0 K [facility] Referring [facility] (chief lumbar [facility]. Provider: TELEMEDICINE Pain [place] complaint) [facility]Fibromyalgia 1 [facility] [facility], Pain in left John, Will J, [address] kneePain in right [place] 72 [address] John, kneePain in left is, [place], John, Caterina, shoulderPain in 754165367 [place], right hipChronic , [place]. s, MN, 024116671 migraine without tel:+ [phone] , [place] aura, intractable, 43354568 . tel: without status tel: [phone] migrainosusOsteoar 8412 345 thritisPain in thoracic spineAnxiety disorder, unspecifiedPain in left hipPostlaminectomy syndrome, not elsewhere classifiedRadiculo shane, lumbar regionOther spondylosis, cervical regionLong term (current) use of opiate analgesic OFFICE VISIT, [facility] Other spondylosis, [facility] Referring [facility] (chief lumbar 5-202 [place]. Provider: TELEMEDICINE Pain [place] complaint) regionFibromyalgia 1 [address] [facility], Pain in left John, Will J, [address] kneePain in right [place] [address] John, kneePain in left is, [place], John, Caterina, shoulderPain in 396909942 [place], right hipChronic , [place]. s, MN, 326708456 migraine without tel: [phone] , [place] aura, intractable, [id number] . tel: without status tel: [phone] migrainosusOsteoar 8412 345 thritisPain in thoracic spineAnxiety disorder, unspecifiedPain in left hipPostlaminectomy syndrome, not elsewhere classifiedRadiculo shane, lumbar regionOther spondylosis, cervical regionLong term (current) use of opiate analgesic [facility] Other spondylosis, March- Mario Referring [facility] (chief lumbar 4-202 [place]. Provider: Pain [place] complaint) regionFibromyalgia 1 [address] [facility], Pain in left John, Will J, [address] kneePain in right [place] [address] John, kneeChronic is, [place], John, [place], migraine without [id number] [place], aura, intractable, , [place]. s, [place] , 227981884 without status tel: [phone] , [place] migrainosusPain in 16610112 . tel: right hipPain in tel: [phone] left shoulderPain 53088 45 in right shoulderOsteoarthr itisPain in thoracic spineAnxiety disorder, unspecifiedPain in left hipPostlaminectomy syndrome, not elsewhere classifiedRadiculo shane, lumbar regionOther spondylosis, cervical regionLong term (current) use of opiate analgesic OFFICE VISIT, [facility] Other spondylosis, Mar-2 K angas Referring [facility] (chief lumbar [place]. Provider: TELEMEDICINE Pain [place] complaint) regionFibromyalgia 1 [address] [facility], Pain in left John, Will J, [address] kneePain in right [place] [address] John, kneeChronic is, [place], John, Caterina, migraine without [id number] [place], aura, intractable, , [place]. s, [place] , 223739039 without status tel: [phone] , [place] migrainosusPain in 33740194 . tel: right hipPain in tel:2 [phone] left shoulderPain 00221 45 in right shoulderOsteoarthr itisPain in thoracic spineAnxiety disorder, unspecifiedPain in left hipPostlaminectomy syndrome, not elsewhere classifiedRadiculo shane, lumbar regionOther spondylosis, cervical regionLong term (current) use of opiate analgesic OFFICE VISIT, [facility] Pain in left Fe- Mario Referring [facility] (chief hipPostlaminectomy [place]. P rovider: TELEMEDICINE Pain [place] complaint) syndrome, not 1 7235 [facility], elsewhere John, Endy J, [address] classifiedRadiculo [place] [address] John, shane, lumbar is, [place], John, [place], regionOther [id number] [place], spondylosis, , [place]. s, [place], 556009658 cervical tel: [phone] , [place] regionOther 02202680 . tel: spondylosis, tel: 2 [phone] lumbar 3196244 regionFibromyalgia Pain in left kneePain in right kneeChronic migraine without aura, intractable, without status migrainosusPain in right hipPain in left shoulderPain in right shoulderOsteoarthr itisPain in thoracic spineAnxiety disorder, unspecifiedLong term (current) use of opiate analgesic OFFICE VISIT, [facility] Pain in left Mario Referring [facility] (chief hipPostlaminectomy [place]. P rovider: TELEMEDICINE Pain [place] complaint) syndrome, not 1 [address] [facility], elsewhere Endy Lopez J, [address] classifiedRadiculo [place] [address] John, shane, lumbar is, [place], John, Caterina, regionOther [id number] [place], spondylosis, , [place]. s, MN, 883473271 cervical tel:+ [phone] , [place] regionOther [id number] . tel: spondylosis, tel: 2 [phone] lumbar 6623190 regionFibromyalgia Pain in left kneePain in right kneeChronic migraine without aura, intractable, without status migrainosusPain in right hipPain in left shoulderPain in right shoulderOsteoarthr itisPain in thoracic spineAnxiety disorder, unspecifiedLong term (current) use of opiate analgesic OFFICE VISIT, [facility] Pain in left Mario Referring [facility] (chief hipPostlaminectomy [place]. P rovider: TELEMEDICINE Pain [place] complaint) syndrome, not 0 [address] [facility], elsewhere Endy Lopez J, [address] [facility] [address] John, shane, lumbar is, [place], John, Caterina, regionOther [id number] [place], spondylosis, , [place]. s, [place], 858770288 cervical tel: [phone] , [place] regionOther 62454665 . tel: spondylosis, tel: 2 [phone] lumbar 4163381 regionFibromyalgia Pain in left kneePain in right kneeChronic migraine without aura, intractable, without status migrainosusPain in right hipPain in left shoulderPain in right shoulderOsteoarthr itisPain in thoracic spineAnxiety disorder, unspecifiedLong term (current) use of opiate analgesic OFFICE VISIT, [facility] Postlaminectomy [facility] Referring [facility] (chief syndrome, not [place]. Provid er: TELEMEDICINE Pain [place] complaint) elsewhere 0 7235 [facility], classifiedRadiculo John Will J, [address] shane, lumbar [place] 7[address] O [facility] John, regionOther is, [place], John, Caterina, spondylosis, [id number] [place], cervical , [place]. s, MN, 715559339 regionOther tel:+ [phone] , [place] spondylosis, 61236050 . tel: lumbar tel:+ [phone] regionFibromyalgia 8412 345 Pain in left kneePain in right kneeChronic migraine without aura, intractable, without status migrainosusPain in left hipPain in right hipPain in left shoulderPain in right shoulderOsteoarthr itisPain in thoracic spineAnxiety disorder, unspecifiedLong term (current) use of opiate analgesic OFFICE/OUTPAT [facility] Postlaminectomy Oct- Gonzalez as Referring IENT VISIT, [facility] (chief syndrome, not [place]. Pr ovider: EST Pain [place] complaint) elsewhere 0 [address] [facility], classifiedRadiculo Endy Lopez J, [address] shane, lumbar [place] 7[address] O [facility] John, regionOther is, [place], John, [place], spondylosis, [id number] [place], cervical , [place]. s, [place], 976497114 regionOther tel:+ [phone] , [place] spondylosis, 88580650 . tel: lumbar tel: [phone] regionFibromyalgia 8412 345 Pain in left kneePain in right kneeChronic migraine without aura, intractable, without status migrainosusPain in left hipPain in right hipPain in left shoulderPain in right shoulderOsteoarthr itisPain in thoracic spineAnxiety disorder, unspecifiedLong term (current) use of opiate analgesicEncounter for therapeutic drug level monitoring OFFICE VISIT, [facility] Postlaminectomy Sep-2 Gonzalez as Referring EST [facility] (chief syndrome, not [place]. Provid er: TELEMEDICINE Pain [place] complaint) elsewhere 0 7235 [facility] Clinic, classifiedRadiculo John, Will J, [address] shane, lumbar [place] [address] John, regionOther is, [place], John, Caterina, spondylosis, [id number] [place], cervical , [place]. s, [place], 227543360 regionOther tel: [phone] , [place] spondylosis, 18609823 . tel: lumbar regionLong tel: [phone] term (current) use 8412 345 of opiate analgesicAnxiety disorder, unspecifiedFibromy algiaPain in left kneePain in right kneeChronic migraine without aura, intractable, without status migrainosusPain in left hipPain in right hipPain in left shoulderPain in right shoulderOsteoarthr itisPain in thoracic spine OFFICE VISIT, [facility] Postlaminectomy Yeimy en Referring [facility] (chief syndrome, not Venu. Provid er: TELEMEDICINE Pain [place] complaint) elsewhere 0 [address] [facility], [address] [address] Jermaine l J, [address] shane, lumbar 11 Umair [address] John, regionOther 100, John, Caterina, spondylosis, [place], cervical e, MN, s, MN, [id number] regionOther [id number] [phone] , [place] spondylosis, , [place]. . tel: lumbar regionLong tel: te l:+ [phone] term (current) use [id number] of opiate analgesicAnxiety disorder, unspecified [facility] Postlaminectomy RN RN. Refe [facility], [facility] syndrome, not [address] Prov ider: Pain [place] elsewhere 0 [facility], classified [place] Will J, [address] is, [place], [address] John, [id number] John, [place], , [place]. [place], tel: s, [place], [phone] [id number] , [place] . tel: tel: [phone] [facility] Postlaminectomy David Ref [facility] Surgery syndrome, not 4-202 Gi. Provider: Pain Center elsewhere 0 7235 [facility], classified JohnEndy J, [address] [place] [address] John, is, [place], Chandana Lopeza, [id number] [place], , [place]. s, [place], 194968950 tel: [phone] , [place] [id number] . tel: tel:+[phone] OFFICE VISIT, [facility] Postlaminectomy Kanga s Referring [facility] (chief syndrome, not [place]. Provider: TELEMEDICINE Pain complaint) elsewhere 0 7235 [facility], classifiedRadiculo JohnEndy J, [address] shane, lumbar [place] [address] John, regionOther is, [place], John, [place], spondylosis, [id number] [place], cervical , [place]. s, MN, 548991245 regionOther tel: [phone] , [place] spondylosis, 20527423 . tel: lumbar regionLong tel: 2 [phone] term (current) use 8412 345 of opiate analgesicAnxiety disorder, unspecified [facility] Postlaminectomy Mario Refe [facility], [facility] syndrome, not [place]. Provid er: Pain Caterina elsewhere 0 7235 [facility], classified JohnEndy J, [address] [place] [address] [place], is, [place], [place], [id number] [place], , [place]. [place], [place], [address] tel: [phone] , [place] [id number] . tel: tel:[phone] [facility] Postlaminectomy Kokayeff Ref [facility] Surgery syndrome, not Gi. Provider: Pain Center elsewhere 0 7235 [facility], classified Endy Lopez J, [address] [place] [address] John, is, [place], John, Caterina, [id number] [place], , [place]. [place], [place], [address] tel: [phone] , [place] [id number] . tel: tel:[phone] OFFICE VISIT, [facility] Back Pain Postlaminectomy Michael s Referring [facility] (chief syndrome, not [place]. Provider: TELEMEDICINE Pain complaint) elsewhere 0 7235 [facility], classifiedRadiculo Endy Lopez J, [address] shane, lumbar [place] 7235 O [facility] John, regionLong term is, [place], [place], Caterina, (current) use of [id number] [place], opiate , [place]. [place], [place], 9678688[address] analgesicOther tel: [phone] , [place] spondylosis, [id number] . tel: cervical tel: [phone] regionOther [id number] spondylosis, lumbar region [facility] No Information [facility] [place]. Pain [place] 0 7235 [facility], John, 7235 [facility] [place], is, [place], [place], [id number] [place], , [place]. [address] tel: , [place] [id number] tel: [phone] OFFICE VISIT, [facility] Back Pain CervicalgiaPostlam K shlomo Referring [facility] (chief inectomy syndrome, [place]. P rovider: TELEMEDICINE Pain [place] complaint) not elsewhere 0 7235 [facility], classifiedRadiculo Endy Lopez J, [address] shane, lumbar [place] 7235 O [facility] John, regionLong term is, [place], [place], Caterina, (current) use of [id number] [place], opiate analgesic , [place]. [place], [place], [address] tel: [phone] , [place] [id number] . tel: tel:[phone] Psych Dx Eval [facility] Pain disorder with Dunellen e [facility] related Maikel Provider: Pain psychological 0 Peg. 7235 [facility], factorsBipolar Ohne Will J, 7235 [address] disorder John, 7235 [facility] John, [place], Caterina, is, [place], [place], [id number] s, [place], [address] , [place]. [address] , [place] tel: . tel: [phone] tel: [phone] OFFICE VISIT, [facility] Back Pain Postlaminectomy Apr-2 Michael s Referring [facility] (chief syndrome, not [place]. Provider: TELEMEDICINE Pain complaint) elsewhere 0 7235 [facility], classifiedLong John Endy Jorge, [address] term (current) use [place] 7 235 [address] John, of opiate is, [place], John, [place], analgesicRadiculop [id number] [place], athy, lumbar , [place]. [place], [place], [address]9592447 regionCervicalgia tel: [phone] , [place] [id number] . tel: tel: [phone] [facility] No Information Jan- [facility] Peter. Pain [place] 0 7235 [facility], John, [address] [place] John, is, [place], Caterina, [id number] [place], , [place]. 227[address]47[address] tel: , [place] [id number] tel: [phone] OFFICE/OUTPAT [facility] Back Pain Postlaminectomy Jan- Gonzalez as Referring IENT VISIT, [facility] (chief syndrome, not [place]. Pr ovider: EST Pain [place] complaint) elsewhere 0 7235 [facility], classifiedLong Endy Lopez, [address] term (current) use [place] 7 235 [address] John, of opiate is, [place], John, Caterina, analgesicCervicalg [id number] [place], iaRadiculopathy, , [place]. [place], [place], 3268[address] lumbar region tel: [phone] , [place] [id number] . tel: tel:[phone] [facility] Postlaminectomy Mar- Garcia Refe rring [facility] Surgery syndrome, not Viry. Provider: Pain Center elsewhere 0 7235 [facility], classified John, Will J, [address] [place] [address] John, is, [place], Caterina Lopez, [id number] [place], , [place]. [place], [place], 6[address] tel:+ [phone] , [place] [id number] . tel: tel:[phone] OFFICE/OUTPAT [facility] Back Pain Postlaminectomy Gonzalez as Referring IENT VISIT, [facility] (chief syndrome, not 8 [place]. Pr ovider: EST Pain [place] complaint) elsewhere 0 7235 [facility], classifiedCervical John, Will J, [address] giaRadiculopathy, [place] 72 35 [address] John, lumbar regionLong is, [place], Caterina Lopez, term (current) use [id number] [place], of opiate , [place]. [place], [place], 050644345 analgesicCarrier tel: [phone] , [place] of Methicillin [id number] . tel: susceptible tel:[phone] Staphylococcus 7607032 aureusCarrier of Methicillin resistant Staph aureusMethicillin resis staph infct causing diseases classd elsMelissacounter for therapeutic drug level monitoring [facility] Postlaminectomy [facility] syndrome, not [place]. Pain Caterina elsewhere 0 7235 [facility], classified John, [address] [place] John, is, [place], Caterina, [id number] [place], , [place]. 717982881 tel:+ , [place] [id number] tel: [phone] OFFICE/OUTPAT [facility] Back Pain Radiculopathy, Kanga s Referring IENT VISIT, [facility] (chief lumbar [place]. Provider : EST Pain [place] complaint) regionPostlaminect 0 7235 [facility], marquis syndrome, not John, Will J , [address] elsewhere [place] 7[address] John, classifiedCervical is, [place], Caterina Lopez, giaLong term [id number] [place], (current) use of , [place]. [place], [place], 687132935 opiate analgesic tel: [phone] , [place] [id number] . tel: tel:[phone] OFFICE/OUTPAT [facility] Back Pain Radiculopathy, Kanga s Referring IENT VISIT, [facility] (chief lumbar 7-201 [place]. Provider : EST Pain C[place] complaint) regionCervicalgiaL 9 35 [address] [facility], beryl term (current) Endy Lopez J, [address] use of opiate [place] 7235 O hms John, analgesicPostlamin is, [place], John, [place], ectomy syndrome, [id number] [place], not elsewhere , [place]. [place], [place], [address]50744[address] classified tel: [phone] , [place] [id number] . tel: tel: [phone] OFFICE/OUTPAT [facility] Back Pain Chronic pain Referring IENT VISIT, [facility] (chief syndromePostlamine 6-201 [place] . Provider: EST Pain [place] complaint) ctomy syndrome, 9 35 [facility], not elsewhere Endy Lopez J, [address] classifiedRadiculo [place] 7 235 Ohms John, shane, lumbar is, [place], John, Caterina, regionCervicalgiaL [id number] [place], beryl term (current) , [place]. [place], [place] , 021314833 use of opiate tel: [phone] , [place] analgesic [id number] . 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 Provider: EST Pain C[place] complaint) opiate 9 [facility], analgesicPostlamin JohnEndy J, 7235 [address] ectomy syndrome, [place] 723 5 Ohms John, not elsewhere is, [place], John, [place], classifiedRadiculo [id number] [place], shane, lumbar , [place]. [place], [place], 779851546 regionCervicalgia tel: [phone] , [place] 33331106 . tel: tel:[phone] OFFICE/OUTPAT [facility] Back Pain Postlaminectomy Carlos as Referring IENT VISIT, [facility] (chief syndrome, not 0-201 [place]. Pr ovider: EST Pain [place] complaint) elsewhere 9 7235 [facility], classifiedLow back John, Will J, [address] painCervicalgiaLon [place] 7 235 [address] John, g term (current) is, [place], John, Caterina, use of opiate [id number] [place], analgesic , [place]. [place], [place], 389306677 tel:[phone] , [place] 72158234 . tel: tel:[phone] OFFICE/OUTPAT [facility] Back Pain Postlaminectomy Carlos as Referring IENT VISIT, [facility] (chief syndrome, not 0-201 [place]. Pr ovider: EST Pain C[place] complaint) elsewhere 9 7235 [facility], classifiedLow back John, Will J, [address] painCervicalgiaLon [place] 7 235 [address] John, g term (current) is, [place], John, [place], use of opiate [id number] [place], analgesic , [place]. [place], [place], 888400002 tel:[phone] , [place] 40886241 . tel: tel:[phone] OFFICE/OUTPAT [facility] Back Pain Postlaminectomy Carlos as Referring IENT VISIT, [facility] (chief syndrome, not 1-201 [place]. Pr ovider: EST Pain C[place] complaint) elsewhere 9 7235 [facility], classifiedLow back John, Will J, [address] painCervicalgiaEnc [place] 7 235 [address] more [place] for is, [place], John, Caterina, therapeutic drug [id number] [place], level , [place]. [place], [place], 790854932 monitoringLong tel: [phone] , [place] term (current) use 66565852 . tel: of opiate tel:2 [phone] analgesic [phone] OFFICE/OUTPAT [facility] Back Pain Postlaminectomy March- Gonzalez as Referring IENT VISIT, [facility] (chief syndrome, not 1-201 [place]. Pr ovider: EST Pain C[place] complaint) elsewhere 9 7235 [facility], classifiedLow back John, Will J, [address] painCervicalgiaLon [place] 7 235 [address] John, g term (current) is, [place], John, [place], use of opiate [id number] [place], analgesic , [place]. [place], [place], 414281078 tel: [phone] , [place] [id number] . tel: tel:[phone] OFFICE/OUTPAT [facility] Back Pain Postlaminectomy Feb-0 Garcia Referring IENT VISIT, [facility] (chief syndrome, not 2-201 Viry. Pr ovider: EST Pain [place] complaint) elsewhere 9 7235 [facility], classifiedRadiculo John, Will J, [address] shane, lumbar [place] 7235 O hms John, regionCervicalgiaL is, [place], John, Caterina, beryl term (current) [id number] [place], use of opiate , [place]. [place], [place], 980776041 analgesic tel:[phone] , [place] [id number] . tel: tel:[phone] OFFICE/OUTPAT [facility] Back Pain Chronic pain Nov- Mario Referring IENT VISIT, [facility] (chief syndromeRadiculopa 3-201 [place] . Provider: EST Pain Caterina complaint) thy, lumbar 9 7235 [facility], regionLow back John, Will J, [address] painLong term [place] 7235 O hms John, (current) use of is, [place], John, Caterina, opiate analgesic [id number] [place], , [place]. [place], [place], 831829084 tel: [phone] , US [id number] . tel: tel:[phone] [facility] Postlaminectomy Nov- Mario Refe [facility] syndrome, not 3-201 [place]. Provid er: Pain Caterina elsewhere 9 7235 [facility], classified Endy Lopez, [address] [place] [address] John, is, [place], Caterina Lopez, [id number] [place], , [place]. [place], [place], 111117370 tel: [phone] , [place] [id number] . tel: tel:[phone] OFFICE/OUTPAT [facility] Back Pain Radiculopathy, Kanga s Referring IENT VISIT, [facility] (chief lumbar regionLow [place]. Provider: EST Pain C[place] complaint) back painLong term 8 7235 [facility], (current) use of Endy Lopez, [address] opiate analgesic [place] 723 5 Ohms John, is, [place], Caterina Lopez, [id number] [place], , [place]. [place], [place], 580136190 tel: [phone] , [place] [id number] . tel: tel:[phone] [facility] Postlaminectomy Sep- Mario Refe [facility] syndrome, not 1-201 [place]. Provid er: Pain Caterina elsewhere 8 7235 [facility], classified Endy Lopez, [address] [place] [address] John, is, [place], Caterina Lopez, [id number] [place], , [place]. [place], [place], 169020759 tel: [phone] , [place] [id number] . tel: tel:[phone] [facility] Postlaminectomy Aug- Garcia Refe [facility] syndrome, not 5-201 Viry. Provider: Pain Center elsewhere 8 7235 [facility], classified Endy Lopez, [address] [place] [address] John, is, [place], Caterina Lopez, [id number] [place], , [place]. [place], [place], 509627823 tel: [phone] , [place] [id number] . tel: tel: [phone] OFFICE/OUTPAT [facility] Back Pain Postlaminectomy Oct-2 Gonzalez as Referring IENT VISIT, [facility] (chief syndrome, not 2-201 [place]. Pr ovider: EST Pain [place] complaint) elsewhere 8 7235 [facility], classifiedRadiculo Endy Lopez, 7235 [facility] shane, lumbar [place] 7235 O hms John, regionLow back is, [place], John, Caterina, pain [id number] [place], , [place]. [place], [place], 525204784 tel: [phone] , [place] [id number] . tel: tel: [phone] [facility] Postlaminectomy Oct-0 Mario Refe [facility] syndrome, not 1-201 [place]. Provid er: Pain [place] elsewhere 8 7235 [facility], classifiedLow back Endy Lopez J, [address] pain [place] 7235 [facility] John, is, [place], Chandana Lopeza, [id number] [place], , [place]. [place], [place], 955653954 tel: [phone] , [place] [id number] . tel: tel: [phone] [facility] Postlaminectomy Sep-2 Garcia Refe [facility] syndrome, not 7-201 Viry. Provider: Pain Center elsewhere 8 7235 [facility], classified John Will J, [address] [place] 7235 [facility] John, is, [place], Chandana Lopeza, [id number] [place], , [place]. [place], [place], 012748422 tel: [phone] , [place] [id number] . tel: tel:[phone] OFFICE/OUTPAT [facility] Back Pain Chronic pain Sep-1 Mario Referring IENT VISIT, [facility] (chief syndromePostlamine 9-201 [place] . Provider: EST Pain C[place] complaint) ctomy syndrome, 8 7235 [facility], not elsewhere Endy Lopez, [address] classifiedRadiculo [place] 7 235 [address] John, shane, lumbar is, [place], John, [place], regionLow back [id number] [place], pain , [place]. [place], [place], 975658544 tel:+ [phone] , [place] [id number] . tel: tel:[phone] OFFICE/OUTPAT [facility] Back Pain Chronic pain Sep-0 Mario Referring IENT VISIT, [facility] (chief syndromeCervicalgi 5- [place] . Provider: EST Pain [place] complaint) aPostlaminectomy 8 7235 [address] [facility], syndrome, not Endy Lopez, [address] elsewhere [place] 7[address] John, classifiedLow back is, [place], John, [place], painRadiculopathy, [id number] [place], lumbar region , [place]. [place], [place], 412932737 tel: [phone] , US [id number] . tel: tel:[phone] OFFICE/OUTPAT [facility] Back Pain Postlaminectomy Aug-0 Gonzalez as Referring IENT VISIT, [facility] (chief syndrome, not 6- [place]. Pr ovider: EST Pain [place] complaint) elsewhere 8 [address] [facility], classifiedChronic Endy Lopez , [address] pain [place] [address] John, syndromeCervicalgi is, [place], John, [place], aLow back pain [id number] [place], , [place]. [place], [place], [address]2173995 tel: [phone] , [place] [id number] . tel: tel:[phone] OFFICE/OUTPAT [facility] Back Pain Chronic pain Kanu-0 Mario Referring IENT VISIT, [facility] (chief syndromeCervicalgi 6-201 [place] . Provider: EST Pain C[place] complaint) aLow back pain 8 7235 [facility], John, Will J, [address] [place] [address] John, is, [place], John, [place], [id number] [place], , [place]. [place], [place], 665315880 tel: [phone] , US [id number] . tel: tel: [phone] OFFICE/OUTPAT [facility] Back Pain CervicalgiaChronic Apr-1 K angas Referring IENT VISIT, [facility] (chief pain syndromeLow 3-201 [place]. Provider: EST Pain [place] complaint) back painLumbago 8 7235 [facility], with sciatica, John, Will J, [address] left [place] 7[address] John, sidePostlaminectom is, [place], Caterina Lopez, y syndrome, not [id number] [place], elsewhere , [place]. [place], [place], 371869912 classifiedLong tel:43 , [place] term (current) use 40362057 . tel: of opiate tel: [phone] analgesic [phone] OFFICE/OUTPAT [facility] Back Pain CervicalgiaChronic Apr-0 K angas Referring IENT VISIT, [facility] (chief pain syndromeLow 6-201 [place]. Provider: EST Pain Caetr[place] complaint) back 8 7235 [facility], painPostlaminectom Endy Lopez J, [address] y syndrome, not [place] 7235 [address] John, elsewhere is, MNJohn [place], classified [id number] [place], , [place]. [place], [place], 933761737 tel:[phone] , US [id number] . tel: tel: [phone] OFFICE/OUTPAT [facility] Back Pain CervicalgiaChronic Feb-0 K angas Referring IENT VISIT, [facility] (chief pain syndromeLow 6-201 [place]. Provider: EST Pain [place] complaint) back 8 7235 [facility], painPostlaminectom Endy Lopez J, [address] y syndrome, not [place] 7235 [address] John, elsewhere is, [place], John, [place], classified [id number] [place], , [place]. [place], [place], 304636747 tel: [phone] , US [id number] . tel: tel: [phone] OFFICE/OUTPAT [facility] Back Pain CervicalgiaChronic K shlomo Referring IENT VISIT, [facility] (chief pain syndromeLow 8201 [place]. Provider: EST Pain [place] complaint) back 7 7235 [facility], painPostlaminectom John, Will J, [address] y syndrome, not [place] 7235 [address] John, elsewhere is, [place], John, Caterina, classified [id number] [place], , [place]. [place], [place], 598864040 tel:[phone] , [place] [id number] . tel: tel: [phone] OFFICE/OUTPAT [facility] Back Pain CervicalgiaLow Kangiqra s Referring IENT VISIT, [facility] (chief back 0-201 [place]. Provider : EST Pain C[place] complaint) painPostlaminectom 7 7235 [facility], y syndrome, not John, Will J, [address] elsewhere [place] 7[address] John, classified is, [place], John, [place], [id number] [place], , [place]. [place], MN, 942234997 tel: [phone] , [place] [id number] . tel: tel: [phone] OFFICE/OUTPAT [facility] Back Pain Postlaminectomy Gonzalez as Referring IENT VISIT, [facility] (chief syndrome, not 9201 [place]. Pr ovider: EST Pain C[place] complaint) elsewhere 7 7235 [facility], classifiedLow back John, Will J, [address] painCervicalgia [place] [address] John, is, [place], John, [place], [id number] [place], , [place]. [place], [place], 514417763 tel: [phone] , US [id number] . tel: tel: [phone] OFFICE/OUTPAT [facility] Back Pain Low back May- Mario Ref erring IENT VISIT, [facility] (chief painCervicalgiaChr [place] . Provider: EST Pain [place] complaint) onic pain 7 7235 [facility], syndromePostlamine John, Endy J, [address] ctomy syndrome, [place] [address] John, not elsewhere is, [place], Caterina Lopez, classified [id number] [place], , [place]. [place], [place], 516158859 tel: [phone] , US [id number] . tel: tel: [phone] OFFICE/OUTPAT [facility] Back Pain Low back March-3 Mario Ref erring IENT VISIT, [facility] (chief painCervicalgiaChr [place] . Provider: EST Pain Cater[place] complaint) onic pain 7 7235 [facility], syndromePostlamine Endy Lopez J, [address] ctomy syndrome, [place] 7235 [address] John, not elsewhere is, MNJohn [place], classified [id number] [place], , [place]. [place], [place], 116622973 tel: [phone] , [place] [id number] . tel: tel: [phone] OFFICE/OUTPAT [facility] Back Pain Low back May-0 Mario Ref erring IENT VISIT, [facility] (chief painCervicalgiaChr [place] . Provider: EST Pain [place] complaint) onic pain syndrome 7 7235 [facility], Endy Lopez J, [address] [place] 7235 [facility] John, is, [place], Caterina Lopez, [id number] [place], , [place]. [place], [place], 513056405 tel: [phone] , US [id number] . tel: tel: [phone] OFFICE/OUTPAT [facility] Back Pain CervicalgiaChronic Apr-0 K angas Referring IENT VISIT, [facility] (chief pain syndromeLow [place]. Provider: EST Pain C[place] complaint) back 7 7235 [facility], painPostlaminectom John, Endy J, [address] y syndrome, not [place] 7[address] John, elsewhere is, [place], Caterina Lopez, classified [id number] [place], , [place]. [place], [place], 005144891 tel:+ [phone] , US [id number] . tel: tel:[phone] OFFICE/OUTPAT [facility] Back Pain Low back Jan- Mario Ref erring IENT VISIT, [facility] (chief painCervicalgiaChr [place] . Provider: EST Pain [place] complaint) onic pain 7 7235 [facility], syndromePostlamine John, Endy J, [address] ctomy syndrome, [place] [address] John, not elsewhere is, MNJohn [place], classified [id number] [place], , [place]. [place], [place], 015225070 tel: [phone] , [place] [id number] . tel: tel:[phone] OFFICE/OUTPAT [facility] Back Pain CervicalgiaLow Kanga s Referring IENT VISIT, [facility] (chief back painChronic [place]. Provider: EST Pain [place] complaint) pain syndrome 7 7235 [facility], Endy Lopez J, [address] [place] [address] John, is, [place], Caterina Lopez, [id number] [place], , [place]. [place], [place], 886480096 tel: [phone] , [place] [id number] . tel: tel:[phone] OFFICE/OUTPAT [facility] Back Pain Low back Mario Ref erring IENT VISIT, [facility] (chief painCervicalgiaChr [place] . Provider: EST Pain Cater[place] complaint) onic pain syndrome 7 7235 [facility], John Will J, [address] [place] 7235 [address] John, is, [place], John, [place], [id number] [place], , [place]. [place], [place], 074222066 tel:[phone] , [place] [id number] . tel: tel: [phone] OFFICE/OUTPAT [facility] Back Pain Low back Dec-0 Mario Ref erring IENT VISIT, [facility] (chief painCervicalgiaPos 2 [place] . Provider: EST Pain [place] complaint) [facility]inectomy 6 [facility] syndrome, not John, Will J, [address] elsewhere [place] 7235 [address] John, classifiedChronic is, [place], John, Caterina, pain syndrome [id number] Janae weiner [place], , [place]. [place], [place], 482741256 tel:[phone] , [place] [id number] . tel: tel: [phone] OFFICE/OUTPAT [facility] Back Pain Low back Nov-0 Mario Ref erring IENT VISIT, [facility] (chief painCervicalgiaPos [place] . Provider: EST Pain [place] complaint) [facility]laminectomy 6 [facility], syndrome, not John, Will J, 7235 [address] elsewhere [place] 7235 [address] John, classified is, [place], John, Caterina, [id number] [place], , [place]. [place], [place], 660826246 tel:[phone] , US [id number] . tel: tel: [phone] OFFICE/OUTPAT [facility] Back Pain Lumbago with Aug- Van Referring IENT VISIT, [facility] (chief sciatica, left 4-201 [place] Provider: EST Pain [place] complaint) sideLong term 6 Kera. [facility], (current) use of [address] Will J, [address] opiate John, [address] John, analgesicCervicalg [place] Kalin e, [place], ia is, [place], [place], 395957508 s, [place], 135954130 , [place]. [address] , [place] tel: . tel: [phone] tel: [phone] OFFICE/OUTPAT [facility] Back Pain CervicalgiaLow Kanga s Referring IENT VISIT, [facility] (chief back [place]. Provider : EST Pain Cater[place] complaint) painPostlaminectom 6 7235 [facility], y syndrome, not John, Will J, [address] elsewhere [place] [address] John, classified is, [place], John Caterina, [id number] [place], , [place]. [place], [place], 026089796 tel: [phone] , [place] [id number] . tel: tel: [phone] OFFICE/OUTPAT [facility] Back Pain Low back Mario Ref erring IENT VISIT, [facility] (chief painCervicalgiaPos [place] . Provider: EST Pain Caterian complaint) tlaminectomy 6 7235 [facility], syndrome, not John, Will J, [address] elsewhere [place] [address] John, classified [place], [place], John Caterina, [id number] [place], , [place]. [place], [place], [id number] tel: [phone] , [place] [id number] . tel: tel: [phone] OFFICE/OUTPAT [facility] CervicalgiaLow Kanga s Referring IENT VISIT, [facility] (chief back painLumbago [place]. Provider: EST Pain Caterina complaint) with sciatica, 6 7235 [facility], left side John, Will J, [address] [place] [address] John, [place], [place], [place], [place], [id number] [place], , [place], [place], [id number] tel: [phone] , [place] [id number] . tel: tel: [phone] OFFICE/OUTPAT [facility] Low back Mario Ref erring IENT VISIT, [facility] (chief painCervicalgia [place]. Provider: EST Pain Caterina complaint) 6 [facility], John, Endy J, [address] [place] [address] [place], [place], [place], Caterina Lopez, [id number] [place], , [place], [place], [id number] tel:[phone] , [place] [id number] . tel: tel:[phone] OFFICE/OUTPAT [facility] Back Pain CervicalgiaLow March- Kanga s Referring IENT VISIT, [facility] (chief back painLumbago 0- Rosetta. Provider: EST Pain Caterina complaint) with [facility]atica, 6 [facility] John, Endy Patel, [address] sidePostlaminectom [place] [address] John, y syndrome, not is, [place], John, Caterina, elsewhere [id number] [place], classified , [place]. [place], [place], [id number] tel: [phone] , [place] [id number] . tel: tel:[phone] OFFICE/OUTPAT [facility] Back Pain Low back Apr-2 Mario Ref erring IENT VISIT, [facility] (chief painCervicalgiaLum [place] . Provider: EST Pain [place] complaint) bago with 6 [facility], sciatica, left Endy Lopez, [address] [place] [address] John, [place], [place], Caterina Lopez, [id number] [place], , [place], [place], [id number] tel: [phone] , [place] [id number] . tel: tel:[phone] OFFICE/OUTPAT [facility] Back Pain Low back Apr-0 Mario Ref erring IENT VISIT, [facility] (chief painCervicalgia 6 [place]. Provider: EST Pain [place] complaint) 6 [facility], Endy Lopez, [address] [place] [address] John, [place], [place], Caterina Lopez, [id number] [place], , [place], [place], [id number] tel: [phone] , [place] [id number] . tel: tel: [phone] OFFICE/OUTPAT [facility] Low back Mar-2 Mario Ref erring IENT VISIT, [facility] (chief painCervicalgiaLum 5-201 [place] . Provider: NEW Pain [place] complaint) bago with 6 [address] [facility], sciatica, left John, Will J, [address] sideLong term [place] [address] John, (current) use of [place], [place], John, [place], opiate [id number] [place], analgesicPostlamin , [place]. [place], [place] , [id number] ectomy syndrome, tel: [phone] , [place] not elsewhere [id number] . tel: classified tel: [phone] Family History Family Member Type Diagnosis Age At Onset Mother Problem (finding) back pain Payers Payer name Insurance type Covered alliance party ID Authorization(s ) Medicare MB [id number] [employer] [facility] [id number] Social History Type Description Quantity Date Captured [...] Of Treatment Date Type Action Status Goal OARS. Due on due Goal UDT. Due on due Goal CHARGE MASTER COORDINATOR Paperwork. Due on due Goal Weight. Due on due Goal FIT-DNA. Due on due Goal HPV. Due on due Goal Order Annual PT. Due on due Goal Height. Due on due Goal AST (SGOT). Due on d ue Goal ALT (SGPT). Due on d ue Goal Hepatitis C screening. Due on Goal Creatinine. Due on d ue Goal Zoster vaccine (1st). Due on due Goal Review Allergy List. Due on due Goal GRINDER CHIPPER Scanned. Due on due Goal Unhealthy drug use screening. on due Goal PHQ-9. Due on due Goal FIT. Due on due Goal Lipid panel. Due on due Goal Update Social History. Due on Goal Tobacco Use. Due on due Goal Medication Reconciliation. Due o n due Goal CT-Colonography. Due on due Goal AST (SGOT). Due on d ue Goal Creatinine. Due on d ue Goal Order Annual PT. Due on due Goal Tobacco Use. Due on due Goal FIT. Due on due Goal GRINDER CHIPPER Scanned. Due on due Goal Hepatitis C screening. Due on Goal FIT-DNA. Due on due Goal OARS. Due on due Goal Weight. Due on due Goal Zoster vaccine (1st). Due on due Goal UDT. Due on due Goal ALT (SGPT). Due on d ue Goal CHARGE MASTER COORDINATOR Paperwork. Due on due Goal CT-Colonography. Due on 022 due Goal PHQ-9. Due on due Goal Medication Reconciliation. Due o n due Goal Update Social History. Due on Goal Unhealthy drug use screening. on due Goal Review Allergy List. Due on due Goal Lipid panel. Due on due Goal HPV. Due on due Goal Height. Due on due Goal UDT. Due on due Goal AST (SGOT). Due on d ue Goal Tobacco Use. Due on due Goal OARS. Due on due Goal Lipid panel. Due on due Goal Order Annual PT. Due on due Goal CHARGE MASTER COORDINATOR Paperwork. Due on due Goal GRINDER CHIPPER Scanned. Due on due Goal Height. Due [...] Goal Hepatitis C screening. Due on Goal GRINDER CHIPPER Scanned. Due on due Goal Unhealthy drug use screening. on due Goal Order Annual PT. Due [...] due Goal FIT. Due on due Goal CHARGE MASTER COORDINATOR Paperwork. Due on due Goal Hepatitis C screening. Due on du Goal Zoster vaccine (). Due on due Goal Lipid panel. Due on due Goal CHARGE MASTER COORDINATOR Paperwork. Due on due Goal ALT (SGPT). Due on d ue Goal PHQ-9. Due on due Goal CT-Colonography. Due on due Goal Tobacco Use. Due on due Goal Zoster vaccine (). Due on due Goal Order Annual PT. Due on due Goal Unhealthy drug use screening. Du e on due Goal Hepatitis C screening. Due on du e -2022 Apr-29-2022 Goal Lipid panel. Due on due Goal [...] due Goal UDT. Due on due Goal GRINDER CHIPPER Scanned. Due on due Goal Medication Reconciliation. Due o n due Goal CHARGE MASTER COORDINATOR Paperwork. Due on due Goal ALT (SGPT). Due on d ue Goal Unhealthy drug use screening. on due Goal FIT-DNA. Due on due Goal Creatinine. Due on d ue Goal Lipid panel. Due on due Goal GRINDER CHIPPER Scanned. Due on due Goal Tobacco Use. [...] Goal Update Social History. Due on Goal CHARGE MASTER COORDINATOR Paperwork. Due on due Goal GRINDER CHIPPER Scanned. Due on due Goal AST (SGOT). [...] e Goal UDT. Due on due Goal GRINDER CHIPPER Scanned. Due on due Goal AST (SGOT). Due on d ue Goal OARS. Due on due Goal Height. Due on due Goal ALT (SGPT). Due on d ue Goal Order Annual PT. Due on due Goal Review Allergy List. Due on due Goal PHQ-9. Due on due Goal CHARGE MASTER COORDINATOR Paperwork. Due on due Goal Tobacco Use. Due on due Goal Medication Reconciliation. Due o n due Goal Weight. Due on due Goal Medication Reconciliation. Due o n due Goal PHQ-9. Due on due Goal CHARGE MASTER COORDINATOR Paperwork. Due on due Goal UDT. Due on due Goal AST (SGOT). Due on d ue Goal GRINDER CHIPPER Scanned. Due on due Goal OARS. Due on due Goal Update Social History. Due on du e Abilio-31-2022 Goal Review Allergy List. Due on due [...] due Goal PHQ-9. Due on due Goal CHARGE MASTER COORDINATOR Paperwork. Due on due Goal Order Annual PT. Due on due Goal OARS. Due on due Goal GRINDER CHIPPER Scanned. Due on due Goal ALT (SGPT). Due on d ue Goal AST (SGOT). Due on d ue Goal UDT. Due on due Goal Tobacco Use. Due on due Goal Medication Reconciliation. Due o n due Goal OARS. Due on due Goal GRINDER CHIPPER Scanned. Due on due Goal Update Social History. Due on Goal AST (SGOT). Due on d ue Goal Height. Due on due Goal Weight. Due on due Goal Order Annual PT. Due on due Goal ALT (SGPT). Due on d ue Goal PHQ-9. Due on due Goal UDT. Due on due Goal Review Allergy List. Due on due Goal CHARGE MASTER COORDINATOR Paperwork. Due on due Goal AST (SGOT). Due on d ue Goal Review Allergy List. Due on due Goal ALT (SGPT). Due on d ue Goal UDT. Due on due Goal Tobacco Use. Due on due Goal Order Annual PT. Due on due Goal GRINDER CHIPPER Scanned. Due on due Goal Update Social History. Due on Goal Medication Reconciliation. Due o n due Goal OARS. Due on due Goal Height. Due on due Goal Weight. Due on due Goal PHQ-9. Due on due Goal CHARGE MASTER COORDINATOR Paperwork. Due on due Goal Order Annual PT. Due on due Goal OARS. Due on due Goal Update Social History. Due on du e Goal AST (SGOT). Due on d ue Goal UDT. Due on due Goal Height. Due on due Goal ALT (SGPT). Due on d ue Goal CHARGE MASTER COORDINATOR Paperwork. Due on due Goal GRINDER CHIPPER Scanned. Due on due Goal PHQ-9. Due [...] Goal Tobacco Use. Due on due Goal GRINDER CHIPPER Scanned. Due on due Goal CHARGE MASTER COORDINATOR Paperwork. Due on due Goal AST (SGOT). Due on d ue Goal GRINDER CHIPPER Scanned. Due on due Goal Order Annual PT. Due on due Goal Tobacco Use. Due on due Goal Medication Reconciliation. Due o n due Goal Review Allergy List. Due on due Goal UDT. Due on due Goal Weight. Due on due Goal ALT (SGPT). Due on d ue Goal PHQ-9. Due on due Goal Height. Due on due Goal CHARGE MASTER COORDINATOR Paperwork. Due on due Goal Update Social History. Due on Goal OARS. Due on due Goal Weight. Due on due Goal AST (SGOT). Due on d ue Goal Medication Reconciliation. Due o n due Goal ALT (SGPT). Due on d ue Goal Review Allergy List. Due on due Goal UDT. Due on due Goal Update Social History. Due on Goal GRINDER CHIPPER Scanned. Due on due Goal PHQ-9. Due on due Goal OARS. Due on due Goal Tobacco Use. Due on due Goal CHARGE MASTER COORDINATOR Paperwork. Due on due Goal Height. Due on due Goal Order Annual PT. Due on due Goal Tobacco cessation counseling com pleted Goal Review Allergy List. Due on due Goal CHARGE MASTER COORDINATOR Paperwork. Due on due Goal OARS. Due on due Goal Medication Reconciliation. Due o n due Goal Weight. Due on due Goal UDT. Due on due Goal Height. Due on due Goal Tobacco Use. Due on due Goal AST (SGOT). Due on d ue Goal Order Annual PT. Due on due Goal GRINDER CHIPPER Scanned. Due on due Goal Update Social History. Due on Goal PHQ-9. Due on due Goal ALT (SGPT). Due on d ue Goal UDT. Due on due Goal Medication Reconciliation. Due o n due Goal CHARGE MASTER COORDINATOR Paperwork. Due on due Goal Update Social History. Due on Goal PHQ-9. Due on due Goal Weight. Due on due Goal ALT (SGPT). Due on d ue Goal Review Allergy List. Due on due Goal AST (SGOT). Due on d ue Goal Order Annual PT. Due on due Goal Tobacco Use. Due on due Goal OARS. Due on due Goal Height. Due on due Goal GRINDER CHIPPER Scanned. Due on due Goal AST (SGOT). Due on d ue Goal GRINDER CHIPPER Scanned. Due on due Goal CHARGE MASTER COORDINATOR Paperwork. Due on due Goal ALT (SGPT). [...] ALT (SGPT). Due on d ue Goal CHARGE MASTER COORDINATOR Paperwork. Due on due Goal UDT. Due on due Goal AST (SGOT). Due on d ue Goal Medication Reconciliation. Due o n due Goal Weight. Due on due Goal Height. Due on due Goal PHQ-9. Due on due Goal GRINDER CHIPPER Scanned. Due on due Goal Tobacco Use. [...] ANALYSIS , URINE, WITH Ordered MED REPORT ([id number]), Ordered on: Future Order: Lab Order Drug Test Def [address]+ [address] ([id number]), Ordered Ordered on: Future Order: Lab Order Drug Test Def [address]+ [address] ([id number]), Ordered Ordered on: Future Order: Lab Order COMPLIANCE DRUG ANALYSIS , URINE, WITH Ordered MED REPORT ([id number]), Ordered on: Future Order: Lab Order MRSA/MSSA Screening ([id number]), Ordered Ordered on: Future Order: Lab Order COMPLIANCE DRUG ANALYSIS , URINE, WITH Ordered MED REPORT ([id number]), Ordered on: History Of Present Illness Encounter [...] her L sydni ulder on 12/30/21 with [place] in order for infection to clear. Additional [...] h er L shoulder on 12/30/21 with [place] in order for in fection to clear. [...] to her Yomi mann on 12/30/21 with [place] in order for infection to clear. Additional [...] her L sydni ulder on 12/30/21 with [place] in order for infection to clear. Additional [...] e, pain meds/drugs and TENS. Comments: Angie escalona sents for a follow up and medications [...] to her L shoulder on 12/30/21 with [place] in order for infection to clear. Additional surgery scheduled completed 02/26/22. e states this went well and will [...] heat, pain meds/drugs and TENS. Comments: Angie escalona [...] her L sydni johnathan on 12/30/21 with [facility] in order for [...] or hardware removal surgery on 12/30/21 with [place] in order for infection to clear. Will [...] is [place] in order for infection to ca ar. [...] for hardware removal surgery in December with [place] in order for in fection to clear. [...] questions or concerns. Back Pain Duration: chronic. Back Pain (comments) [...] L side weakness -- was treated by [facility] ic. Was put on Warfarin, unsure if it can be held for sinus surgery or SCS revision.[facility] oxycodone 5mg -- on track. Reports [...] and enroll ed in a program through [facility]. She also not es of increasing [...] not interested in any procedures at the mo ment. PT-SABAS-RF-N/ASCS-Anisa jeaneth has Meds: Opioids-Currently ta kes [...] to refill her medications. She will call [facility] if sh e has any questions prior [...] SE. Key[place] pain has been worse since las t [...] injury pain. She is going in again tomne row to decide what to do. She [...] mo re headaches. She was seen by [facility] who told her she has a screw loose. She was referred to Dr. Gonzalez at [facility]. She has not heard from t [...] tomorrow. She said s he will get Leonard for 4-5 days maximum followi ng the [...] and states it aggrevated her pain. [facility] continues to be effective for reduci ng her pain. She will be completing diagnosti c injections today through [facility]. No other concerns [...] #1 Oxycodone, surplus. She [place] for her back pain. She is having an epd iural steroid injection done at [facility] [facility] tomorrow. She isn't sure how well the [...] xpresses some interest in pursuing medical brenda torreyshell once she is more stable. No other [...] neck surgery. ENT referred her to an outsole cutter machine for additional evaluation. No other concerns today. Back Pain Severity level is se maricruz. Duration: chronic. The problem is worsening . It occurs persistently. Location of pain is lower back and neck.The patient describes pain as an ache, sharp, shooting, stabbing [...] Patient completed right shou lder imaging at [facility] and reports a tear. She plans [...] will be undergoing a Cervical Fusion with [place]. She will be following up with [facility] [...] [facility] cervical [facility]. She has noticed increased restlessne ss and [...] by Dr. Amna Fletcher from [facility]. Angie is here today for her initial consult regarding her back, neck and knee pain which bega n years ago and has been aggrevated from [facility]. She had a lumbar fusion in the past. She also has underwent several neck surgeri es including a cervical fusion and plans to have additional surgery done by Dr. Rodriguez at [facility] She also has a history of Gastric [...] regul christian. She recently moved back to [place] from [place]. No ot her concerns today. Medical records:Dr. Rodriguez at [facility] - neck surgeon Dr. Amna Fletcher [facility] - PCP recordsPast treatmen t:SABAS - no [...] 10/27/2020. Additional hardwar e removal surgery through [place] completed 12/30/21. Another s urgery to replace [...] implant on 07/11. Improvement with reprogramming assessment retirement (current) use of opiate analge sic impression [...] Last UDT resul ts reviewed and appropriate. [facility] oxy codone rx [...]
--- OUTSIDE RECORDS SUMMARY | 2022-08-01 07:34 | XMS_ITS | Continuity of Care Document ---
:1965 Author Organization [employer] Address [address] [place] [address] Phone Care Team Providers Name Role Phone [...] rs Description For Visit Copied on Encounter [place] [employer] [facility] [place] Referring [facility] Information -2007 Su. Provider : Arthur [address] [place], [address], [address] [facility], [place], [place], [place], [id number], [place], [id number], . [address]. tel:[phone] tel:[phone] tel:[phone] [place] [employer] Blurred No Adalberto Referring [facility] Information -2007 Deep. Provider: Arthur, (chief [address] complaint) [address] [facility], [address], [address], [place], [place], [place], [place], [place], [place], [id number], [place], [id number], . [address]. tel:[phone] tel:[phone] tel:[phone] Family History Family Member Type Diagnosis Age At Onset No Information Payers Payer name Insurance type Covered libertarian ID Authorization(s ) No Information Social History [...]
--- OUTSIDE RECORDS SUMMARY | 2022-08-01 07:35 | XMS_ITS | Encounter Summary ---
:1965 Author Organization [place] Address [address] [place] [address]. [place] [address] Care Team Providers Name Role Phone [facility] Primary Care Provide r Encounter Details Date Type Department Care Team Description 05/20/2021 Records - [facility] Provider, [facility] Health Information Management [address] [facility] [address] [place] [address] Social History Tobacco Use Types Packs/Day Years [...] athologist Signature Creatinine 0.60 0.50 - 1.50 [place] mg/dL [facility] Specimen (Source) Anatomical Location Collection Method / Collectio n Time Received Time / Laterality Volume Blood specimen 04/20/2021 (specimen) Narrative 04/20/2021 [facility] EXTERNAL RESULT Historical Provider LAB - BLOOD ORDERABLES Performing Organization Address City/State/ZIP Code Phon e Number [facility] [address] [place] [address] documented in this encounter Visit Diagnoses Not on filedocumented in this encounter Care Teams Topstitcher Zigzag Relationship Specialty Start Date End Date [facility] PCP - General 06/03/17[address] [place] [address] documented as of this encounter
--- OUTSIDE RECORDS SUMMARY | 2022-08-01 07:35 | XMS_ITS | Encounter Summary ---
:1965 Author Organization [place] Address [address] [place] [address] Care Team Providers Name Role Phone [facility] Primary Care Provide r Encounter [...] on filedocumented in this encounter Care Teams Floor Installer Relationship Specialty Start Date End Date [facility] PCP - General 06/03/171999 [place] [address] documented as of this encounter
--- OUTSIDE RECORDS SUMMARY | 2022-08-01 07:35 | XMS_ITS | Encounter Summary ---
:1965 Author Organization [place] Address [facility] [place] [address] Care Team Providers Name Role Phone [facility] Primary Care Provide r Mor Bautista MD [...] on filedocumented in this encounter Care Teams Treater Relationship Specialty Start Date End Date [facility] PCP - General 06/03/17 [facility] [address] [place] [address] Mor Bautista MD Assigned Infectious Disease 06/12/2106/25 [address] Provider [address] [place] [address] documented as of this encounter
--- OUTSIDE RECORDS SUMMARY | 2022-08-01 07:35 | XMS_ITS | Encounter Summary ---
:1965 Author Organization [place] Address [facility] [place] [address] Care Team Providers Name Role Phone Clinic, [facility] [place] Primary Care Provider [phone] Reason for Visit Reason Comments Fall Encounter Details Date Type Department Care Team Description 05/17/2017 Emergency [facility] Jose Guadalupe Betancourt MD Acute neck pain; [facility] Emergency Dep t [facility] Shoulder strain, unspecified laterality, initial encounter [address] [place], [place] [address] [address] [id number] [place] [address] [place], [place] [address] (Wo rk) Social History Tobacco Use Types [...] contain Tylenol?? (acetaminophen), including Vicodin??, Tylenol #3??, [place]??, Lortab??, and Percocet??. You should not take [...] contain Tylenol?? (acetaminophen), including Vicodin??, Tylenol #3??, [place]??, Lortab??, and Percocet??. You should not take [...] neck fusion Reports taking tylenol 2 hrs GALVANIZER ZINC Jose Guadalupe Betancourt MD - 05/17/2017 7:20 [...] Surgical History: Abdomen surgery Back surgery Cholecystectomy SCIENTIFIC INFORMATICS PROJECT LEADER surgery Orthopedic Surgery Family History: History reviewed. [...] I spoke with Dr. Davis of the [facility] regarding patient's presentation, findings, [...] and the provider's statements to me. 05/17/2017 [facility] EMERGENCY DEPARTMENT Jose Guadalupe Betancourt MD 05/18/17 [...] NAZANIN MCCORMACK MD Jose Guadalupe Betancourt MD [facility] ORDERABLES documented in this encounter Visit [...] grams documented in this encounter Care Teams Soda Dialyzer Relationship Specialty Start Date End Date [facility], [place] [facility] PCP - General 05/17/17 06/02/17 [address] [place] [address] documented as of this encounter
--- OUTSIDE RECORDS SUMMARY | 2022-08-01 07:35 | XMS_ITS | Encounter Summary ---
:1965 Author Organization [place] Address [facility] [place] [address] Care Team Providers Name Role Phone Clinic, [facility] Primary Care Provide r Mor Bautista MD Unavailable Reason for Visit Reason Onset Date Comments Appointment 05/12/2021 Encounter Details Date Type Department Care Team Description 05/12/2021 [facility] Infectious Disease None Appointment Clinic [place] [phone] Social History Tobacco Use Types Packs/Day Years Used Date Current Every Day Smoker 0.5 Smokeless Tobacco: Never Used Alcohol Use Standard Drinks/Week Comments No 0 (1 standard drink = 0.6 oz pure alcoho l) Sex Assigned at Date Recorded Not on file documented as of this encounter Miscellaneous Notes Telephone Encounter - Tiffanie Georges - 05/12/2021 12:17 PM CDT [facility] Call Center Phone Message May a detailed message be left on voicemail: yes Reason for Call: Other: Pt requesting call back, pt stated she is returning a call to the clinic. Health Center Assistant did not see any notes in the pt's chart to refer to. Pt stated she is being referred from [facility] for a staph infection in her shoulder, [...] on filedocumented in this encounter Care Teams Cloth Mercerizer Back Tender Relationship Specialty Start Date End Date Clinic, [facility] PCP - General 06/03/[address] [address] Mor Bautista MD Assigned Infectious Disease 06/12/2106/25 [address] [place] [address] documented as of this encounter
--- OUTSIDE RECORDS SUMMARY | 2022-08-01 07:35 | XMS_ITS | Clinical Summary ---
:1965 Author Organization [place] Address Count includes the [facility] [place] [address] Care Team Providers Name Role Phone Clinic, [facility] Primary Care Provide r Allergies Active Allergy Reactions Severity Noted Date Comments Acyclovir Rash Low 07/18/2016 Adhesive Tape 07/18/2016 Amoxicillin 07/18/2016 Benzoin Blisters 10/13/2017 Cephalosporins Rash Low 10/13/2017 Gabapentin 05/17/2017 Soy Allergy 10/13/2017 Lynco Rash Low 10/13/2017 Sulfamethoxazole-Trimethoprim GI Disturbance 7 [...] breath / dyspnea or wheezing naloxone (NARCAN) [place] 4 mg into 0 Active nasal spray [...] (Takes 2 x 5000 unit tablet = 66249 unit dose) Esomeprazole Magnesium Take 40 mg [...] CDT Respiratory Rate 16 10/14/2017 4:28 PM ETCHER APPRENTICE PHOTOENGRAVING Oxygen Saturation 98% 10/14/2017 4:28 PM ETCHER APPRENTICE PHOTOENGRAVING Inhaled Oxygen Concentration - - Weight 74.8 [...] this topic Medical Devices Implanted Type Area Race Steward Device Shelf Model / Identifier Expiration Serial / Date Lot Device Tvt Obturator Laser [id number] Other N/A: [employer] 04/27/2018 [id number] / Implanted: Qty: 1 on 10/14/2017 by Rain Herring MD at [facility]- / [id number] Insurance Payer Benefit Plan / Subscriber ID Effective Dates Phone Addre ss Type Group MEDICARE MEDICARE [id number] 2012-Prese [phone] ATTN [facility] Medicare nt 0 [address] [place] [address] MEDICA MEDICA ACCESS [id number] 2016-Presen [phone] [address] [address] HMO ABILITY MA t 2 [place] [address] Care Teams Animal Hospital Clerk Relationship Specialty Start Date End Date Clinic, [facility] PCP - General 06/03/171999 [place] [address]
--- OUTSIDE RECORDS SUMMARY | 2022-08-01 07:35 | XMS_ITS | Encounter Summary ---
:1965 Author Organization [place] Address [address] [place] [address] Care Team Providers Name Role Phone Unavailable Primary Care Provider Unavailable Reason for Visit Reason Onset Date Comments Previsit 12/11/2014 12/19/[address] Juice mackenzie Encounter Details Date Type Department Care Team Description 12/11/2014 PRE VISIT Yasmin, Previsit ( OV [facility] Shauna Alejo MD with Dr Humphrey) [place] [address] [place], [place] [phone] [id number] (Wo rk) Social History Tobacco Use Types Packs/Day Years Used Date Never Assessed Sex Assigned at Date Recorded Not on file documented as of this encounter Plan of Treatment Not on filedocumented as of this encounter Visit Diagnoses Not on filedocumented in this encounter
--- OUTSIDE RECORDS SUMMARY | 2022-08-01 07:35 | XMS_ITS | Encounter Summary ---
:1965 Author Organization [place] Address [address] [place] [address] Care Team Providers Name Role Phone [facility], [facility] Primary Care Provide r Encounter Details Date Type Department Care Team Description [facility]2021 [facility] ProviderAlea Social History Tobacco Use [...] filedocumented in this encounter Care Teams Store Sales Consultant Relationship Specialty Start Date End Date [facility] PCP - General 06/03/171999 [place] [address] documented as of this encounter
--- OUTSIDE RECORDS SUMMARY | 2022-08-01 07:35 | XMS_ITS | Continuity of Care Document ---
:1965 Author Organization [facility] Address [address] [place] [address] Phone Care Team Providers Name Role Phone [...] rs Description For Visit Copied on Encounter [facility] No Information Nov- ZProvider Arthritis [place] 6[address] [place] 4 . . Rheumatolo gy, [address] [facility], [place], [place], [id number], [place] tel:[phone] [facility] TOBACCO USE Apr-1 Michele Arthritis DISORDEROBESITY 8[address] Nara. And NOSOSTEOPOROSIS NOS [address], gy, [address], [address], [place], [id number], [place], [place]. [id number], tel:[phone] tel:[phone] [facility] Age-related Apr-0 ZProvider Arthritis [place] osteoporosis w/o 7[address] [place] current 4 . . Rheumatolo pathological gy, [address] [place] [address], [id number], [place] tel:[phone] [facility] OBESITY NOSTOBACCO Mar-2 ZProvider Arthritis USE [address] And DISORDEROSTEOPOROSI 4 . . Rheumatolo S NOSMALAISE AND gy, [address], [place], [place], [id number], [place] tel:[phone] [place] NEPTALI [place] Tobacco useObesity, Mar-2 Michele Arthritis unspecifiedAge-rela Nara. And mary osteoporosis 4 [address]o [address], gy, [address], [address] fracture [place], [address], [place], [place], [id number], [place], [place]. [id number], tel:[phone] tel:[phone] Family History Family Member Type Diagnosis Age [...]
--- OUTSIDE RECORDS SUMMARY | 2022-08-01 07:35 | XMS_ITS | Encounter Summary ---
:1965 Author Organization [place] Address [address] [place] [address] Care Team Providers Name Role Phone Clinic, [facility] Primary Care Provide r Encounter Details Date Type Department Care Team Description 03/20/2021 Records - [facility], [facility] [address] [place] [address] [phone] Social History Tobacco Use Types Packs/Day Years [...] Bacterial Culture Routine (03/20/2021 6:00 AM CDT) [facility] Method Time Signature Culture STAPHYLOCOCCUS 03/27/2021 [facility] EPIDERMIDIS (A) 8:01 AM CDT [facility] Comment: Staphylococcus epidermidis Isolated from broth only Gram Stain 4+ Polymorphonuclear 03/27/2021 8:01 AM HEALTH Result leukocytes [facility] Gram Stain No organisms seen 03/27/2021 8:01 AM [facility]ALTH Result CDT [facility] Specimen Anatomical Collection Method [...] MICRO GENERAL ORDERABL ES Performing Organization Address City/[facility] [place] [address] [address] [facility] Anaerobic Bacterial Culture Routine (03/20/2021 6:00 AM CDT) [facility] Method Time Signature Culture No anaerobic 03/23/2021 HEALTH organisms 7:18 AM CDT [facility] Specimen Anatomical Collection Method Collection Time Receive d Time (Source) Location / / Volume Laterality Body fluid Non-blood 03/20/2021 6:00 AM 1 sample Collection / CDT 12:05 PM CDT (specimen) Unknown [facility] - MICRO GENERAL ORDERABL ES Performing Organization Address City/[facility]/[place] [address] [address] [facility] (ABNORMAL) Cell count with differential fluid (03/20/2021 6:00 AM CDT) [facility] Method Time Signature Color Red 03/20/2021 [facility] 2:04 PM CDT [facility] Clarity Turbid 03/20/2021 [facility] 2:04 PM CDT [facility] Total Nucleated 42,864 (H) 0 - 99 03/20/2021 [facility] Cells /uL 2:04 PM CDT [facility] RBC, Fluid >50,000 <50,000 03/20/2021 [facility] (A) /ul 2:04 PM CDT [facility] % Neutrophils 91 (H) <=25 % 03/20/2021 [facility] 2:04 PM CDT [facility] % Lymphocytes 8 <=78 % 03/20/2021 [facility] 2:04 PM CDT [facility] Monocyte % 1 <=71 % 03/20/2021 [facility] 2:04 PM CDT [facility] Macrophage % 03/20/2021 [facility] 2:04 PM CDT [facility] Mesothelials, 03/20/2021 [facility] Fluid 2:04 PM CDT [facility] % Eosinophils 03/20/2021 [facility] 2:04 PM CDT [facility] % Other Cells 03/20/2021 [facility] 2:04 PM CDT [facility] Specimen Anatomical Collection Method Collection Time Receive d Time (Source) Location / / Volume Laterality Body fluid BODY FLUID SAMPLE Non-blood 03/20/2021 6:00 AM 02/27 sample / Unknown Collection / CDT 12:05 PM CDT (specimen) Unknown Narrative [facility] - 03/20/2021 2:04 PM CDT Large clot present; count may be inaccur ate. [facility] - BODY FLUIDS ORDERABLES Performing Organization Address City/State/ZIP Code Phon [place] [address] [place] [facility] [address] [place] [id number] [place] [address] [place] [address], [facility] [phone] documented in this encounter Visit Diagnoses Not on filedocumented in this encounter Care Teams Goat Driver Relationship Specialty Start Date End Date Clinic, [facility] PCP - General 06/03/171999 [place] [address] documented as of this encounter
--- OUTSIDE RECORDS SUMMARY | 2022-08-01 07:35 | XMS_ITS | Encounter Summary ---
:1965 Author Organization [place] Address [address] [place] [address] Care Team Providers Name Role Phone Amna Fletcher Primary Care Provider Reason for Visit Reason Comments Chest Wall Pain Encounter Details Date Type Department Care Team Description 07/18/2016 [facility], [facility] Emergency [facility] phuong Ross MD Closed fracture of rib of right side, in itial encounter [address] [facility] [place], [place] [address] [address] [facility] [address] [place] [address] (Wo rk) Social History Tobacco Use Types [...] your healthcare provider ?? Congested cough ?? [phone] [employer]. [address] [place] [address]. All rights reserved. This information is not intended as a substitute for professional medical care. Always follow your healthcare professional's instructions. AttachmentsThe following attachments cannot be sent through Care Everywhere.BONE BRUISE (BONE CONTUSION), UNDERSTANDING ([place])documented in this encounter Medications at Time of [...] as of this encounter ED Notes Myesha Lewsi RN - 07/18/2016 3:26 AM CDT at [...] surgery Bilateral knee arthroplasty Gastric bypass Cholecystectomy Security Messenger surgery Family History: History reviewed. No pertinent [...] Department Course ECG (01:17:19): Rate 69 bpm. OK interval 176. QRS duration 94. QT/QTc 408/437. [...] hours for 10 days Adrian Vera 07/18/2016 [facility] IAdrian am serving as a scribe at 1:03 AM on 07/18/2016 to document services personally performed by Radha Espana MD based on my observations and the provider's statements to me. Radha Espana MD 07/18/16 [address], RADHA - 07/18/2016 12:48 AM [...] EKG 12 lead (07/18/2016 1:17 AM CDT) [facility] gist Method Time Signature Interpretation ECG Click View RADIOLOGY Image link RESULTS to view waveform and result Specimen (Source) Anatomical Collection Method Collection Time Re ceived Time Location / / Volume Laterality 07/18/2016 1:17 AM CDT aRdha Espana MD ECG ORDERABLES Performing Organization Address [...] patch (COMPLETED) 021 (Given - Provider: Myesha Lewsi RN - Comment: right ribcage, sternum) 2 [...] dose documented in this encounter Care Teams Parole Officer Relationship Specialty Start Date End Date Amna Fletcher PCP - General 07/18/16 05/16/17 [facility] [address] [place] [address] documented as of this encounter
--- OUTSIDE RECORDS SUMMARY | 2022-08-01 07:35 | XMS_ITS | Encounter Summary ---
:1965 Author Organization [place] Address [address] [place] [address] Care Team Providers Name Role Phone [facility], [facility] Primary Care Provide r Encounter Details Date Type Department Care Team Description 03/03/2021 [facility] CONVERSION ProviderAlea Social History [...] filedocumented in this encounter Care Teams Manager Policy Relationship Specialty Start Date End Date [facility] PCP - General 06/03/171999 [place] [address] documented as of this encounter
--- OUTSIDE RECORDS SUMMARY | 2022-08-01 07:35 | XMS_ITS | Encounter Summary ---
:1965 Author Organization [place] Address [facility] [place] [address] Care Team Providers Name Role Phone Clinic, [facility] Primary Care Provide r Reason for Visit Reason Comments Consult pt here with her neighbor Airn calderon, Encounter Details Date Type Department Care Team Description 05/14/2021 Office Visit - [facility] Mor Bautista Acute he matogenous [facility] Sheldon Patel MD osteomyelitis of right [address] [place] [address] shoulder [address] (H) [address] [facility] [address] [address] [place], [place] [phone] Social History Tobacco Use Types Packs/Day Years [...] disease history: Reviewed in the notes from [place] Medications: Reviewed prior to admission meds as [...] ?? GRAM STAIN? Gram stain performed by [place], [place] ?? Specimen Collected on Tissue - [...] this duration if possible. My cell is [phone]. I wrote for 90 days and warned pt about sunburn risk. She has hx of skin cancer. 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
--- OUTSIDE RECORDS SUMMARY | 2022-08-01 07:35 | XMS_ITS | Encounter Summary ---
:1965 Author Organization [place] Address [facility] [place] [address] Care Team Providers Name Role Phone Unavailable Primary Care Provider Unavailable Encounter Details Date Type Department Care Team Description 07/29/2011 Historic Notes INTERFACED REPORT Interface, Transcript onMD Social History Tobacco Use Types Packs/Day Years Used Date Never Assessed Sex Assigned at Date Recorded Not on file documented as of this encounter Progress Notes Interface, Kiln Charger - 08/30/2011 5:48 PM CDT Allergies ?? [...]
--- OUTSIDE RECORDS SUMMARY | 2022-08-01 07:35 | XMS_ITS | Encounter Summary ---
:1965 Author Organization [place] Address [address] [place] [address] Care Team Providers Name Role Phone [facility] Primary Care Provide r Encounter Details Date Type Department Care Team Description 04/29/2021 [facility] [...] on filedocumented in this encounter Care Teams Per Diem Physical Therapist Relationship Specialty Start Date End Date [facility] PCP - General 06/03/171999 [place] [address] documented as of this encounter
--- OUTSIDE RECORDS SUMMARY | 2022-08-01 07:35 | XMS_ITS | Encounter Summary ---
:[address] Address [facility] [place] [address] Care Team Providers Name Role Phone [facility] Primary Care Provide r Mor Bautista [...] filedocumented in this encounter Care Teams Elementary [employer] Art Teacher Relationship Specialty Start Date End Date [facility], [facility] PCP - General 06/03/17 [facility] [address] [place] [address] Mor Bautista MD Assigned Infectious Disease 06/12/2106/25 [facility] Mohan Porter Provider [address] [place] [address] documented as of this encounter
--- OUTSIDE RECORDS SUMMARY | 2022-08-01 07:35 | XMS_ITS | Encounter Summary ---
:1965 Author Organization [place] Address [address] [facility] [place] [address] Care Team Providers Name Role Phone Clinic, [facility] Primary Care Provide r Reason for Visit Auth/Cert Specialty Diagnoses / Procedures Referred By Contact Refer red To Contact Surgery Diagnoses URGE AND STRESS INCONTINENCE,FEMALE STRESS INCONTINENCE Sh Periop Services Procedures CYSTOSCOPY, SLING TRANSVAGINAL [address], [address] [place] [address] Phone: Referral ID Status Reason Start Date Expiration Date Visits Requ ested Visits Authorized [id number] 1 1 Encounter Details Date Type Department Care Team Description 10/14/[address] [facility] [place], CYSTOSCOPY ,TVT SLING [place] [facility] Ser ashwin Rodrigez MD [address], [address] [facility] A UROLOGY [facility] [address] [place] [address] [facility] [phone] [place] [address] (Wo rk) Surgery Details Date/Time Status Location OR Service Patient Case Class Case Tr auma Class Type Case? 10/14/17 1:00 Posted OR OR [facility] Urology Same Day PM Surgery Panel [...] Comments Blood Pressure 93/59 10/14/2017 2:15 PM SCREEN HANDLER Pulse - - Temperature 35.7 ??C (96.3 ??F) 10/14/2017 1:31 PM SCREEN HANDLER Respiratory Rate 14 10/14/2017 2:15 PM SCREEN HANDLER Oxygen Saturation 93% 10/14/2017 2:15 PM SCREEN HANDLER Inhaled Oxygen Concentration - - Weight 73.9 kg (163 lb) 10/14/2017 12:15 PM SCREEN HANDLER Height 152.4 cm (5') 10/14/2017 12:15 PM SCREEN HANDLER Body Mass Index 31.83 10/14/2017 12:15 PM SCREEN HANDLER documented in this encounter Discharge Instructions Discharge InstructionsGi King, RADHA - 10/14/2017 1:42 PM SCREEN HANDLER Post Bladder Sling Instructions Dr [facility] [phone] ?? For pain you may take a narcotic/acetaminophen combination prescription for pain relief. The mostcommon pain is in the upper thighs. This usually lasts 2-3 days. You may use cold packs to this areaas needed to reduce pain and bruising. Generally izle-bws-rbedyam medicines such as ibuprofen, 3-4 tablets every [...] vaginal sutures. ?? Post op appointments: Call [phone] to schedule an appointment to see your [...] know so they can address your concerns. EN HANDLER documented in this encounter Medications at Time [...] needed for muscle spasms naloxone (NARCAN) nasal [place] 4 mg into one 0 spray nostril [...] (Takes 2 x 5000 unit tablet = 52502 unit dose) ZONISAMIDE PO Take 300 mg [...] and was given a new prescription for [place]. Prescription for Oxycodone shredded. Patient took hard copy of new [place] prescription with her.; EN HANDLER Vicki Matthews RN - 10/14/2017 3:39 PM CST Patient voided, bladder scan 450cc, encouraged patient to void again. Pt voided. Bladder scan for 100-150cc. Patient comfortable and ready to go home. EN HANDLER documented in this encounter Miscellaneous Notes Op [...] note, she also underwent sling [facility] and on exam I was [...] EM#[id number] Name: ANGIE MOSQUERA MRN: [id number] Account: [id number] : 1965 Procedure Date: 10/14/2017 Document: [id number] cc: Rain Stafford MD EN HANDLER documented in this encounter Plan of Treatment Not on filedocumented as of this encounter Procedures Procedure Name Priority Date/Time Associated Diagnosis Comme nts CREATION, VAGINAL 10/14/2017 12:46 PM URGE AND STRESS SLING, WITH CYSTOSCOPY SCREEN HANDLER INCONTINENCE,FEMAL E STRESS INCONTINENCE LAB RESULT - HIM SCAN 10/11/2017 12:00 AM SCREEN HANDLER EKG CARDIAC - HIM SCAN 08/15/2017 12:00 AM CDT XRAY IMAGING - HIM 07/25/2017 12:00 AM SCAN CDT documented in this encounter Results LAB RESULT - HIM SCAN (10/11/2017 12:00 AM SCREEN HANDLER) Specimen (Source) Anatomical Location Collection Method / [...] 1:21 PM 30 mLs Operative EPINEPHrine 1:200,000 SCREEN HANDLER Sit e/Surgical Site injection PRN, Starting on Tue10/14/17 at 1321, Intra-procedure ciprofloxacin (CIPRO) infusion 400 mg Given 10/14/2017 12:59 PM SCREEN HANDLER 400 mg Routine, 400 mg, Intravenous, PRE-OP/PRE-PROCEDURE, Starting on Tue10/14/17 at 1155, For 1 dose, Irritant., Indications: Perioperative Pharmacoprophylaxis, Pre-procedure New Bag 10/14/2017 12:26 PM SCREEN HANDLER 400 mg fentaNYL (PF) (SUBLIMAZE) injection 25-5 0 mcg Given 10/14/2017 2:01 PM SCREEN HANDLER 50 mcg 25-50 mcg, Intravenous, EVERY 2 [...] 100 mcg., PACU Given 10/14/2017 1:50 PM SCREEN HANDLER 50 mcg HYDROmorphone (PF) (DILAUDID) injection Given 10/14/2017 2:42 PM SCREEN HANDLER 0.5 mg 0.3-0.5 mg 0.3-0.5 mg, Intravenous, [...] minutes., PACU/Phase II Given 10/14/2017 2:18 PM SCREEN HANDLER 0.5 mg ondansetron (ZOFRAN) injection 4 mg Given 10/14/2017 2:18 PM SCREEN HANDLER 4 mg 4 mg, Intravenous, EVERY 30 [...] tablet 5 mg Given 10/14/2017 2:54 PM SCREEN HANDLER 5 mg 5 mg, Oral, ONCE, On Tue10/14/17 at 1500, For 1 dose, PACU scopolamine (TRANSDERM) 72 hr Given 10/14/2017 12:43 PM SCREEN HANDLER 1 pa tch Behind Left Ear patch 1 patch 1 patch, Transdermal, EVERY 72 HOURS, First dose on Tue10/14/17 at 1245, Apply patch to skin, behind ear. Remove every 72 hours. Each 1.5 mg patch delivers 1 mg of scopolamine., Pre-procedure skin closure adhesive Given 10/14/2017 1:19 PM 1 applicator Operative (DERMABOND) vial SCREEN HANDLER Site/Surgical S ite PRN, Starting on Tue10/14/17 at 1319, Intra-procedure sodium chloride 0.9% Given 10/14/2017 1:09 PM 1,000 mLs Operative (bottle) irrigation SCREEN HANDLER Site/Surgical S ite PRN, Starting on Tue10/14/17 at 1309, Intra-procedure sterile water irrigation Given 10/14/2017 1:08 PM 3,000 mLs Operative (bag) SCREEN HANDLER Site/Surgical S ite PRN, Intra-procedure, Starting on Tue10/14/17 at 1308, Until Tue10/14/17 at 1544 documented in this encounter Active and Recently Administered Medications Times are shown in SCREEN HANDLER. Scheduled Medication Order 10/12/2017 10/13/2017 10/14/2017 ciprofloxacin (CIPRO) infusion 400 mg (COMPLETED) 1226 (New Bag - Provider: Rona Hanks RN)1259 (Given - Provider: Gayatri Combs APRN DIRECTOR AIRPORT OPERATIONS) Routine, 400 mg, Intravenous, PRE-OP/PRE -PROCEDURE, Starting [...] 1544 documented in this encounter Care Teams Director Of Special Education Relationship Specialty Start Date End Date Clinic, [facility] PCP - General 06/03/171999 [place] [address] documented as of this encounter
--- OUTSIDE RECORDS SUMMARY | 2022-08-01 07:35 | XMS_ITS | Encounter Summary ---
:1965 Author Organization [place] Address [facility] [place] [address] Care Team Providers Name Role Phone Clinic, [facility] Primary Care Provide r Reason for Visit Reason Comments Back Pain Neck Pain Encounter Details Date Type Department Care Team Description 06/03/2017 Emergency [employer] Heggestad, Zoey Acute mi dline low back pain, with sciatica presence unspecified; [employer] Emergency Dep phuong Flowers PA-C Chronic neck pain [address] [facility] [place], [place] [address] [address] [facility] [phone] [place], [place] [address] (Wo rk) Social History [...] that she received adequate care at the [facility] that she has been too. Pt reports that she left [facility] yesterday after they did not address her issues. Pt states that she would like something to take her painaway and upset that has not been receiving adequate pain control. SW explained that this engineering technical writer could not provide pt with pain [...] Evans RN - 06/03/2017 3:41 PM CDT leather production worker is talking with patient per patient [...] pain in her sternum.She was seen at [facility] and evaluated for neck pain but left [...] and that she is seeing doctors at [facility] for evaluation. She reports that most of [...] 6 months ago when she ran into [place]. She states that she called her pain management center, [facility], and that they referred [...] a history of chronic pain who sees [facility] for her prescription for [...] son tells me that they went to [facility] emergency room and they told the nurse that they went to [facility] emergency room as well in the past few days but nobody did anything or me. Here, the patient notes that hardware in her C-spine has loosened and she is scheduled to see [facility] physician to possibly look [...] patient and her son that per our [facility] pain policy she could have a dose of pain medication here orally but we were not doing IM or IV and she would not get a prescription to go home with. During the work-up, I was unaware that the patient requested to see social work and social work came down to see them and came to talk to me. The community mental health social worker states that the patient wanted to complain about our care to her but she had no complaints of social issues at home. leather production worker referred her back to me. I [...] I did also speak to a [employer] high school combination teacher for [facility], [place], who agreed [...] observations and the provider's statements to me. [facility] Zoey López PA-C 06/03/17 [...] Region Laterality Modality Spine, SUBRAD CT MSK, [facility] CT SPINE Compu mary Tomography Specimen [...] dose documented in this encounter Care Teams Blueprint Duplicator Relationship Specialty Start Date End Date [facility] PCP - General 06/03/171999 [place] [address] documented as of this encounter
--- OUTSIDE RECORDS SUMMARY | 2022-08-01 07:35 | XMS_ITS | Encounter Summary ---
:1965 Author Organization [place] Address [address] [facility] [place] [address] Care Team Providers Name Role Phone Clinic, [facility] Primary Care Provide r Reason for Visit Auth/Cert Specialty Diagnoses / Procedures Referred By Contact Refer red To Contact Surgery Diagnoses URGE AND STRESS INCONTINENCE,FEMALE STRESS INCONTINENCE Sh Periop Services Procedures CYSTOSCOPY, SLING TRANSVAGINAL [address] [place] [address] Phone: Referral ID Status Reason Start Date Expiration Date Visits Requ ested Visits Authorized [id number] 1 1 Encounter Details Date Type Department Care Team Description 10/14/2017 Hospital Encounter [facility] Sitbonnie, Mary Ann ss incontinence Shayne Rodrigez MD (Primary Dx) PreOP/Phase II [place] [address], UROLOGY [address] [facility] [address] [place] [address] [phone] Social History Tobacco Use Types Packs/Day Years Used Date Current Every Day Smoker 0.5 Smokeless Tobacco: Never Used Alcohol Use Standard Drinks/Week Comments No 0 (1 standard drink = 0.6 oz pure alcoho l) Sex Assigned at Date Recorded Not on file documented as of this encounter Last Filed Vital Signs Vital Sign Reading Time Taken Comments Blood Pressure 121/86 10/14/2017 4:28 PM INVASIVE MANAGER Pulse - - Temperature 36.6 ??C (97.8 ??F) 10/14/2017 3:00 PM INVASIVE MANAGER Respiratory Rate 16 10/14/2017 4:28 PM INVASIVE MANAGER Oxygen Saturation 98% 10/14/2017 4:28 PM INVASIVE MANAGER Inhaled Oxygen Concentration - - Weight 73.9 kg (163 lb) 10/14/2017 12:15 PM INVASIVE MANAGER Height 152.4 cm (5') 10/14/2017 12:15 PM INVASIVE MANAGER Body Mass Index 31.83 10/14/2017 12:15 PM INVASIVE MANAGER documented in this encounter Discharge Instructions Discharge InstructionsGi King RN - 10/14/2017 1:42 PM INVASIVE MANAGER Post Bladder Sling Instructions Dr Stafford [phone] ?? For pain you may take a narcotic/acetaminophen combination prescription for pain relief. The mostcommon pain is in the upper thighs. This usually lasts 2-3 days. You may use cold packs to this areaas needed to reduce pain and bruising. Generally [id number] medicines such as ibuprofen, 3-4 tablets every [...] vaginal sutures. ?? Post op appointments: Call [phone] to schedule an appointment to see your [...] know so they can address your concerns. SIVE MANAGER documented in this encounter Medications at Time [...] needed for muscle spasms naloxone (NARCAN) nasal [place] 4 mg into one 0 spray nostril [...] (Takes 2 x 5000 unit tablet = 07207 unit dose) ZONISAMIDE PO Take 300 mg [...] and was given a new prescription for [place]en. Prescription for Oxycodone shredded. Patient took hard copy of new Tilden prescription with her.; SIVE MANAGER Vicki Matthews RN - 10/14/2017 3:39 PM CST Patient voided, bladder scan 450cc, encouraged patient to void again. Pt voided. Bladder scan for 100-150cc. Patient comfortable and ready to go home. SIVE MANAGER documented in this encounter Miscellaneous Notes Op [...] note, she also underwent sling placement in [facility] and on exam I was able [...] and draped in the regular fashion. A 16-Estonian [place] catheter was placed. Periurethral space was [...] MD MT: [id number] Name: ANGIE MOSQUERA Account: [id number] : 1965 Procedure Date: 10/14/2017 Document: [id number] cc: Rain Stafford MD SIVE MANAGER documented in this encounter Plan of Treatment Not on filedocumented as of this encounter Procedures Procedure Name Priority Date/Time Associated Diagnosis Comme nts CREATION, VAGINAL 10/14/2017 12:46 PM URGE AND STRESS SLING, WITH CYSTOSCOPY INVASIVE MANAGER INCONTINENCE,FEMAL E STRESS INCONTINENCE LAB RESULT - HIM SCAN 10/11/2017 12:00 AM INVASIVE MANAGER EKG CARDIAC - HIM SCAN 08/15/2017 12:00 AM CDT XRAY IMAGING - HIM 07/25/2017 12:00 AM SCAN CDT documented in this encounter Results LAB RESULT - HIM SCAN (10/11/2017 12:00 AM INVASIVE MANAGER) Specimen (Source) Anatomical Location Collection Method / [...] ciprofloxacin (CIPRO) infusion Given 10/14/2017 12:59 PM INVASIVE MANAGER 400 mg 400 mg Routine, 400 mg, Intravenous, PRE-OP/PRE-PROCEDURE, Starting on Tue10/14/17 at 1155, For 1 dose, Irritant., Indications: Perioperative Pharmacoprophylaxis, Pre-procedure New Bag 10/14/2017 12:26 PM INVASIVE MANAGER 400 mg fentaNYL (PF) (SUBLIMAZE) injection 25-5 0 mcg Given 10/14/2017 2:01 PM INVASIVE MANAGER 50 mcg 25-50 mcg, Intravenous, EVERY 2 [...] 100 mcg., PACU Given 10/14/2017 1:50 PM INVASIVE MANAGER 50 mcg HYDROmorphone (PF) (DILAUDID) injection Given 10/14/2017 2:42 PM INVASIVE MANAGER 0.5 mg 0.3-0.5 mg 0.3-0.5 mg, Intravenous, [...] minutes., PACU/Phase II Given 10/14/2017 2:18 PM INVASIVE MANAGER 0.5 mg ondansetron (ZOFRAN) injection 4 mg Given 10/14/2017 2:18 PM INVASIVE MANAGER 4 mg 4 mg, Intravenous, EVERY 30 [...] tablet 5 mg Given 10/14/2017 2:54 PM INVASIVE MANAGER 5 mg 5 mg, Oral, ONCE, On Tue10/14/17 at 1500, For 1 dose, PACU scopolamine (TRANSDERM) 72 hr Given 10/14/2017 12:43 PM INVASIVE MANAGER 1 pa tch Behind Left Ear patch 1 patch 1 patch, Transdermal, EVERY 72 HOURS, First dose on Tue10/14/17 at 1245, Apply patch to skin, behind ear. Remove every 72 hours. Each 1.5 mg patch delivers 1 mg of scopolamine., Pre-procedure documented in this encounter Active and Recently Administered Medications Times are shown in INVASIVE MANAGER. Scheduled Medication Order 10/12/2017 10/13/2017 10/14/2017 ciprofloxacin (CIPRO) infusion 400 mg (COMPLETED) 1226 (New Bag - Provider: Rona Hanks RN)1259 (Given - Provider: Gayatri Combs APRN RADIO OFFICER) Routine, 400 mg, Intravenous, PRE-OP/PRE -PROCEDURE, Starting [...] RADHA) 0.3-0.5 mg, Intravenous, EVERY 10 MIN [place] N, other, acute pain.?May administer if Respiratory [...] documented in this encounter Care Teams Director Geothermal Operations Relationship Specialty Start Date End Date [facility] PCP - General 06/03/171999 [place] [address] documented as of this encounter
--- OUTSIDE RECORDS SUMMARY | 2022-08-01 07:35 | XMS_ITS | Encounter Summary ---
:1965 Author Organization [place] Address [address] [place] [address] Care Team Providers Name Role Phone [facility] Primary Care Provide r Encounter [...] on filedocumented in this encounter Care Teams Bench Examiner Relationship Specialty Start Date End Date [facility] PCP - General 06/03/171999 [place] [address] documented as of this encounter
--- OUTSIDE RECORDS SUMMARY | 2022-08-01 07:35 | XMS_ITS | Encounter Summary ---
:1965 Author Organization [place] Address [address] [facility] [place] [address] Care Team Providers Name Role Phone Clinic, [facility] Primary Care Provide r Reason for Visit Auth/Cert Specialty Diagnoses / Procedures Referred By Contact Refer red To Contact Surgery Diagnoses URGE AND STRESS INCONTINENCE,FEMALE STRESS INCONTINENCE Sh Periop Services Procedures CYSTOSCOPY, SLING TRANSVAGINAL [address] [place] [address] Phone: Referral ID Status Reason Start Date Expiration Date Visits Requ ested Visits Authorized [id number] 1 1 Encounter Details Date Type Department Care Team Description 10/14/2017 Anesthesia Event M [facility] SruthiEri rosa MD [facility] ANESTHESIA [address] [place] [id number] [facility] PeriOP Gayatri Combs, FUR SEWER TRANSCRIPTION [address] [place] [address] Services [address] [place] [address] Anesthesia Record Procedure Summary Procedure Name [...] Gayatri Combs, Vicki Collins D, Injectable; Tolerated TRANSCRIPTION RN well Retired Non-Surgical 10/14/17; 1254; Easy; 10/14/17 1254 by 09/28 06/13 1328 by Airway Intravenous; 4; mm; Gayatri Combs, FUR SEWER Gayatri Combs, laryngeal mask airway; TRANSCRIPTION FUR SEWER TRANSCRIPTION midline; Equal, clear and bilateral; TRANSCRIPTION; hh Urethral Catheter 10/14/17; 1314; No; 10/14/17 1314 by 10/14/17 1316 by /GI/TOBACCO CLASSER Pelvic Usha Bar, Carole Duff, Procedure; 16 [...] MD, MD October 14, 2017 1:50 PM OR WEB APPLICATIONS DEVELOPER Anesthesia Preprocedure Evaluation - Mini Negro MD [...] SURGERY ??? BACK SURGERY ??? CHOLECYSTECTOMY ??? TOBACCO CLASSER SURGERY ??? ORTHOPEDIC SURGERY Social History Substance [...] (Takes 2 x 5000 unit tablet = 63077 unit dose) Yes Reported, Patient Esomeprazole Magnesium [...] Yes Reported, Patient naloxone (NARCAN) nasal spray [place] 4 mg into one nostril alternating nostrils [...] Reported, Patient Current Facility-Administered Medications Ordered in [facility] Medication Dose Route Frequency Last Rate Last Dose ??? Provider ordered ALTERNATE pre op antibiotic. 1 each As instructed Continuous ??? ciprofloxacin (CIPRO) infusion 400 mg 400 mg Intravenous Pre-Op/Pre-procedure x 1 dose No current [facility]-ordered outpatient prescriptions on file. ??? Another Antibiotic [...] GLC, BUN, CR, ROGER in the last 17618hvhel. No results for input(s): AST, ALT, ALKPHOS, BILITOTAL, LIPASE in the last 66207 hours. No results for input(s): WBC, HGB, PLT in the last 44632 hours. No results for input(s): ABO, RH in the last 27380 hours. No results for input(s): INR, PTT in the last 43289 hours. No results for input(s): TROPI in the last 68669 hours. No results for input(s): PH, PCO2, PO2, HCO3 in the last 04906 hours. No results for input(s): HCG in the last 28752 hours. No results found for this or any previous visit (from the past 744 hour(s)). RECENT LABS: ECG: ECHO: OR WEB APPLICATIONS DEVELOPER documented in this encounter Miscellaneous Notes Anesthesia [...] APRN CRNA October 14, 2017 1:34 PM OR WEB APPLICATIONS DEVELOPER documented in this encounter Plan of Treatment Not on filedocumented as of this encounter Visit Diagnoses Not on filedocumented in this encounter Administered Medications Inactive Administered Medications - up to 3 most recent administrations Medication Order MAR Action Action Date Dose Rate Site ciprofloxacin (CIPRO) infusion Given 10/14/2017 12:59 PM SENIOR WEB APPLICATIONS DEVELOPER 400 mg 400 mg Routine, 400 mg, Intravenous, PRE-OP/PRE-PROCEDURE, Starting on Tue10/14/17 at 1155, For 1 dose, Irritant., Indications: Perioperative Pharmacoprophylaxis, Pre-procedure New Bag 10/14/2017 12:26 PM SENIOR WEB APPLICATIONS DEVELOPER 400 mg dexamethasone (DECADRON) injection Given 10/14/2017 1:03 PM SENIOR WEB APPLICATIONS DEVELOPER 4 mg PRN, Administer over 1 Minutes, Starting on Tue10/14/17 at 1303, Anesthesia Intra-op dexmedetomidine (PRECEDEX) 4 mcg/mL bolu s Bolus 10/14/2017 1:08 PM SENIOR WEB APPLICATIONS DEVELOPER 8 mcg 200 mcg, CONTINUOUS PRN, Starting on Tue10/14/17 at 1305, Anesthesia Intra-op New Bag 10/14/2017 1:05 PM SENIOR WEB APPLICATIONS DEVELOPER 12 mcg fentaNYL (PF) (SUBLIMAZE) injection Given 10/14/2017 12:52 PM SENIOR WEB APPLICATIONS DEVELOPER 100 mcg PRN, moderate to severe pain, Administer over 3-5 Minutes, Starting on Tue10/14/17 at 1252, Anesthesia Intra-op lactated ringers infusion New Bag 10/14/2017 12:51 PM SENIOR WEB APPLICATIONS DEVELOPER Intravenous, CONTINUOUS PRN, Anesthesia Intra-op, Starting on Tue10/14/17 at 1251, Until Tue10/14/17 at 1334 lidocaine injection 2% (MDV) Given 10/14/2017 12:52 PM SENIOR WEB APPLICATIONS DEVELOPER 80 mg PRN, Starting on Tue10/14/17 at 1252, Anesthesia Intra-op midazolam (VERSED) injection Given 10/14/2017 12:51 PM SENIOR WEB APPLICATIONS DEVELOPER 2 mg Administer over 2 Minutes, PRN, anxiety, Starting on Tue10/14/17 at 1251, Anesthesia Intra-op ondansetron (ZOFRAN) injection Given 10/14/2017 1:03 PM SENIOR WEB APPLICATIONS DEVELOPER 4 mg PRN, nausea, vomiting, Administer over 2-5 Minutes, Starting on Tue10/14/17 at 1303, Anesthesia Intra-op propofol (DIPRIVAN) infusion Rate/Dose 10/14/2017 1:14 150 mcg/kg/min 66.5 mL/hr Intravenous, CONTINUOUS PRN, Change PM SENIOR WEB APPLICATIONS DEVELOPER Starting on Tue10/14/17 at 1252, Anesthesia Intra-op New Bag 10/14/2017 12:52 PM SENIOR WEB APPLICATIONS DEVELOPER 200 mcg/kg/min 88.7 mL/hr propofol (DIPRIVAN) injection 10 mg/mL v ial Given 10/14/2017 1:06 PM SENIOR WEB APPLICATIONS DEVELOPER 50 mg PRN, Starting on Tue10/14/17 at 1252, Anesthesia Intra-op Given 10/14/2017 12:52 PM SENIOR WEB APPLICATIONS DEVELOPER 150 mg documented in this encounter Care Teams Coo & Co Founder Relationship Specialty Start Date End Date Clinic, [facility] PCP - General 06/03/171999 [place] [address] documented as of this encounter
--- OUTSIDE RECORDS SUMMARY | 2022-08-01 07:35 | XMS_ITS | Encounter Summary ---
:1965 Author Organization [place] Address [address] [place] [address] Care Team Providers Name Role Phone [facility], [facility] Primary Care Provide r Encounter Details Date Type Department Care Team Description [facility] ProviderAlea Social History [...] on filedocumented in this encounter Care Teams Rf Engineer Relationship Specialty Start Date End Date [facility] PCP - General 06/03/171999 [place] [address] documented as of this encounter
--- OUTSIDE RECORDS SUMMARY | 2022-08-01 07:35 | XMS_ITS | Encounter Summary ---
:1965 Author Organization [place] Address [address] [place] [address] Care Team Providers Name Role Phone [facility] Primary Care Provide r Encounter [...] on filedocumented in this encounter Care Teams Fmd Teacher Relationship Specialty Start Date End Date [facility] PCP - General 06/03/171999 [place] [address] documented as of this encounter
--- OUTSIDE RECORDS SUMMARY | 2022-08-01 07:35 | XMS_ITS | Continuity of Care Document ---
:1965 Author Organization [facility] Address [address] [address] [place] [address] Phone Care Team Providers Name Role Phone Nilay [place] MD Unavailable Unavailable Advance Directives Directive Yes / No Effective Date File Name No Information Encounters Encounter Practice Location Reason(s) Diagnoses Date Provider Provide rs Description For Visit Copied on Encounter [facility] No Orlando FAULKNER Referring [facility] Nilay. Provider: [facility] [place], Endoscopy [address] [facility] [address], Fredis DILLON MD, [address] [facility] [address], [place], [place], [facility] [address], [id number], [place], [place], [facility] [id number], [place], [address]. tel:[phone] . tel:[phone] tel:[phone] Family History Family Member Type Diagnosis Age At Onset No Information Payers Payer name Insurance type Covered libertarian ID Authorization(s ) [place] Medical Assistance [id number] Social History Type Description Quantity Date Captured [...]
--- OUTSIDE RECORDS SUMMARY | 2022-08-01 07:36 | XMS_ITS | Encounter Summary ---
:1965 Author Organization [place] Address [address] [facility] [place] [address] Care Team Providers Name Role Phone Unavailable Primary Care Provider Unavailable Encounter Details Date Type Department Care Team Description 04/15/2009 Results Only [facility] Evelio Munoz MD Hospital Results [address] [place] [id number] (Wo rk) Social History Tobacco Use Types [...] MD SPECIAL IMAGING STUDIES Performing Organization Address City/[facility] Code Phon e Number RADIOLOGY RESULTS CT [...] MD SPECIAL IMAGING STUDIES Performing Organization Address [facility] Code Phon e Number RADIOLOGY RESULTS documented in this encounter Visit Diagnoses Not on filedocumented in this encounter
--- OUTSIDE RECORDS SUMMARY | 2022-08-01 07:36 | XMS_ITS | Encounter Summary ---
:1965 [facility] Address [address] [place] [address] Care Team Providers Name Role Phone Jose Holden MD Primary Care Provider [phone] Encounter Details Date Type Department Care Team [...] 11/10/2018 12:00 AM R esults for this FRAUD PREVENTION ANALYST procedure are i n the results section. documented in this encounter Results CT SCAN SPINE--SCAN (11/10/2018 12:00 AM FRAUD PREVENTION ANALYST) Anatomical Region Laterality Modality Other Specimen (Source) Anatomical Location Collection Method / Collectio n Time Received Time / Laterality Volume 11/10/2018 Narrative This result has an attachment that is no t available. Phy No Primary/Referring DUMMY/OTHER/AR documented in this encounter Visit Diagnoses Not on filedocumented in this encounter Care Teams Heel Scorer Relationship Specialty Start Date End Date Jose Holden MD PCP - General Otolaryngology 12/14/[address] [place] [address] documented as of this encounter
--- OUTSIDE RECORDS SUMMARY | 2022-08-01 07:36 | XMS_ITS | Encounter Summary ---
:1965 Author Organization [facility] Address [address] [place] [address] Care Team Providers Name Role Phone Jose Holden MD Primary Care Provider [phone] Reason for Visit Reason Comments Revisit repeat injections Occipital VS Trigger point Encounter Details Date Type Department Care Team Description 02/06/2019 Office Visit [facility], Bilateral occ ipital neuralgia (Primary Dx); [facility] Myalgia; Pain Management [address] Fibromyalgia; [address] 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 Tony Pittman MD Pain Medicine documented in this encounter Progress Notes Tony Pittman MD - 02/06/2019 2:30 PM CDT [facility] Follow-up Visit 02/06/2019 [...] Oxycodone 5 mg Q6H - Prescribes by [facility], has been taking [...] at a pain clinic in the past. [facility] physical therapy: Past [...] anterior cervical fusion 2017 Dr. Ihsan Brooke, [facility] past surgical [...] ??? medical cannabis patient certified Take 1 [place] by mouth . ??? naloxone (NARCAN) 4 [...] Gain No facility-administered medications prior to visit. [place] and [place] Prescription Monitoring Program reviewed Allergies: Allergies Allergen [...] in her mother. Social history:she lives in [place], [place].she is not currently working. Smokin/2 ppd. [...] These are unchanged from previous. 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 Patient education: I [...] MD Pain Medicine Physical Medicine and Rehabilitation [facility] This note created [...] myelopathy documented in this encounter Care Teams Scientist/Engineer Relationship Specialty Start Date End Date Jose Holden MD PCP - General Otolaryngology 12/14/[address] [place] [address] documented as of this encounter
--- OUTSIDE RECORDS SUMMARY | 2022-08-01 07:36 | XMS_ITS | Encounter Summary ---
:1965 [facility] Address [address] [address] Care Team Providers Name Role Phone Jose Holden MD Primary Care Provider [phone] Reason for Visit Reason Comments Injection Encounter Details Date Type Department Care Team Description 09/04/2018 Telephone [facility] Pete Gonzalez MD Injection Center Neurosurgery/Ortho [address] [facility] Spine [place], [place] [address] [address] [place] [address] [phone] Social History Tobacco Use Types Packs/Day Years [...] 09/05/2018 10:13 AM CDT Per Sirisha Maher, AUTOCAD DESIGNER: cannot write letter. Okay for repeat bilateral [...] Cervicalgia documented in this encounter Care Teams Electronics Manufacturer Relationship Specialty Start Date End Date Jose Holden MD PCP - General Otolaryngology 12/14/17 [place] [id number] documented as of this encounter
--- OUTSIDE RECORDS SUMMARY | 2022-08-01 07:36 | XMS_ITS | Encounter Summary ---
:1965 Author Organization [facility] Address [address] [facility] [place] [address] Care Team Providers Name Role Phone Unavailable Primary Care Provider Unavailable Encounter Details Date Type Department Care Team Description 07/29/2011 Emergency room [facility] EMERGENCY NURY CISNEROS Results [address] [place], [place] [address] Social History Tobacco Use Types Packs/Day Years Used Date Never Assessed Sex Assigned at Date Recorded Not on file documented as of this encounter Progress Notes Interface, Residential Life Director - 07/31/2011 10:23 AM CDT FINAL Chief [...] she recently came to the area from [place] to visit her father (approximately two weeks [...] with a friend. The patient resides in [place], and is here in the [facility] area visiting her father. The patient states that she has been smoking one pack of cigarettes per day since 1973. Her primary care physician is Dr. Holley De La Rosa in [place], [place]. \n Her chronic pain doctor is Dr. Garcia at [facility] in [place]. - Is negative for Illicit drug use, [...] MT: JOSÉ MIGUEL Name: KAYLIN MOSQUERA Account: [id number] : 1965 Visit Date: 07/29/2011 Document: [id number] documented in this encounter Plan of Treatment Not on filedocumented as of this encounter Visit Diagnoses Not on filedocumented in this encounter
--- OUTSIDE RECORDS SUMMARY | 2022-08-01 07:36 | XMS_ITS | Encounter Summary ---
:1965 Author Organization [facility] Address [address] [address] Care Team Providers Name Role Phone Jose Holden MD Primary Care Provider Reason for Referral Procedure/Equipment (Routine) - Closed Specialty Diagnoses / Procedures Referred By Contact Refer red To Contact Diagnoses Intractable acute post-traumatic headache Blanka Mead APRN, CN P [address] [place] [address] Referral ID Status Reason Start Date Expiration Date Visits Requ ested Visits Authorized [id number] Closed 02/16/2019 05/17/2020 1 1 Scheduling Instructions . herapies (Routine) - Closed Specialty Diagnoses / Procedures Referred By Contact Refer red To Contact Diagnoses Impairment of balance Dizziness Blanka Mead APRN, CN P [address] [place] [address] Referral ID Status Reason Start Date Expiration Date Visits Requ ested Visits Authorized [id number] Closed 02/16/2019 04/17/2019 1 1 Scheduling Instructions Your provider has recommended an appoint ment with a [facility] Physical Therapist. Please stop at the clinic check out desk for assistance with scheduling or if you prefer to call for your appointment you may call [facility] Outpatient Rehabilitation at [phone]. We suggest you call your [facility] insurance company about your coverage and benefits for this appointment. Reason for Visit Reason Comments Consult, New Patient Consult/Transfer Care (Routine) - Closed Specialty Diagnoses / Procedures Referred By Contact Refer red To Contact Diagnoses Traumatic brain injury, without loss of consciousness, initial encounter (HRC) Tony Pittman MD [address] [place] [address] Referral ID Status Reason Start Date Expiration Date Visits Requ ested Visits Authorized [id number] Closed 12/26/2018 03/26/2020 1 1 Encounter Details Date Type Department Care Team Description 02/16/2019 Office Visit [facility], Impairment of balance (Primary Dx); Neuroscience Center Blanka Coulter s; Physical Medicine NIKKY Chavez, Intractable acute post-traum atic headache [address] [facility] [place] [address] [address] [facility] [phone] [place] [address] Social History Tobacco Use Types [...] Body Mass Index 33.01 12/26/2018 1:48 PM CAFETERIA CASHIER documented in this encounter Patient Instructions Patient [...] If you need to reschedule, please call [phone] as soon as you know you will not be able to make the appointment. If you have any questions or concerns, please call the clinic at [phone]. ?? If tests are needed, you will [...] treatment plan is please contact us at [phone] or send us a secure message via Tribe. If you need follow-up in the future, please call [phone] for an appointment. If you cannot get a time that satisfies you, please let us know what times work for you and we will do our best to accommodate you. Thank you for choosing Blanka Mead APRN, CNP and [facility]. documented in this [...] ER right away. She was seen at [facility]. According to the note from [facility]: the patient fell approximately 20 hours before being seenon 11/10/2018 with a presentation of headache neck pain left shoulder pain left knee pain left hip pain out of proportion to the mechanism of injury. The patient's a 53-year-old female well-known to [facility] with multiple comorbid medical and [...] She sees Dr. Bullard with neurosurgery at [facility]. She has a past medical history [...] Ihsan Brooke, [facility] Family History: Family History Problem Relation Age [...] ??? medical cannabis patient certified Take 1 [place] by mouth . ??? naloxone (NARCAN) 4 [...] XR CERVICAL SPINE AP/LAT UPRIGHT LOCATION: [facility] DATE/TIME: 12/26/2018 1:44 PM ?? INDICATION: [...] able to review her head CT from [facility] as well as her cervical spine CT. Findings obtained by [facility] on 11/10/2018 showed CSF spaces within normal [...] headache documented in this encounter Care Teams Telephone Station Installer Relationship Specialty Start Date End Date Jose Holden MD PCP - General Otolaryngology 12/14/17 [facility] [address] documented as of this encounter
--- OUTSIDE RECORDS SUMMARY | 2022-08-01 07:36 | XMS_ITS | Encounter Summary ---
:1965 Author Organization [facility] Address [address] [place] [address] Care Team Providers Name Role Phone Jose Holden MD Primary Care Provider [phone] Encounter Details Date Type Department Care Team Description 08/14/2018 Consent for [facility] E[facility] Procedure/Treat [facility] Tony Alvarado MD FOR TX/PROCEDURE ent Pain Management [address] [place] [phone] Social History Tobacco Use Types Packs/Day Years [...] on filedocumented in this encounter Care Teams Office Employee Relationship Specialty Start Date End Date Jose Holden MD PCP - General Otolaryngology 12/14/[address] [place], [place] [id number] documented as of this encounter
--- OUTSIDE RECORDS SUMMARY | 2022-08-01 07:36 | XMS_ITS | Encounter Summary ---
:1965 [facility] Address [address] [place] [address] Care Team Providers Name Role Phone Jose Holden MD Primary Care Provider [phone] Encounter Details Date Type Department Care Team [...] HEAD 11/10/2018 12:00 AM Results for this FLY SETTER procedure are i n the results section . documented in this encounter Results CT HEAD (11/10/2018 12:00 AM FLY SETTER) Anatomical Region Laterality Modality Other Specimen (Source) Anatomical Location Collection Method / Collectio n Time Received Time / Laterality Volume 11/10/2018 Narrative This result has an attachment that is no t available. Phy No Primary/Referring DUMMY/OTHER/AR documented in this encounter Visit Diagnoses Not on filedocumented in this encounter Care Teams Assembler Fluorescent Lights Relationship Specialty Start Date End Date Jose Holden MD PCP - General Otolaryngology 12/14/17 [place] [address] documented as of this encounter
--- OUTSIDE RECORDS SUMMARY | 2022-08-01 07:36 | XMS_ITS | Encounter Summary ---
:1965 Author Organization [facility] Address [address], [place] [address] Care Team Providers Name Role Phone Jose Holden MD Primary Care Provider [phone] Encounter Details Date Type Department Care Team Description 11/10/2018 Orders Only External to Pete Tamayo MD [address] [place], [place] [id number] (Wo rk) Social History Tobacco Use Types [...] 11/10/2018 12:00 AM R esults for this CUSTOMER SUCCESS MANAGER procedure are i n the results section. documented in this encounter Results CT SCAN SPINE--SCAN (11/10/2018 12:00 AM CUSTOMER SUCCESS MANAGER) Anatomical Region Laterality Modality Other Specimen (Source) Anatomical Location Collection Method / Collectio n Time Received Time / Laterality Volume 11/10/2018 Narrative This result has an attachment that is no t available. Pete Gonzalez MD DUMMY/OTHER/AR documented in this encounter Visit Diagnoses Not on filedocumented in this encounter Care Teams Tannery Worker Relationship Specialty Start Date End Date Jose Holden MD PCP - General Otolaryngology 12/14/17 [address] [place] [address] documented as of this encounter
--- OUTSIDE RECORDS SUMMARY | 2022-08-01 07:36 | XMS_ITS | Encounter Summary ---
:1965 Author Organization [facility] Address [address], [place] [address] Care Team Providers Name Role Phone Jose Holden MD Primary Care Provider [phone] Reason for Visit Reason Comments Revisit occipital nerve block Encounter Details Date Type Department Care Team Description 07/10/2018 Office Visit [facility] Frank occipital neuralgia (Primary Dx); Neuroscience Center Pain RMD Myalgia; Management [address] H/O cervical spinal arthrodesis [address] [place] [address] [phone] Social History Tobacco Use Types Packs/Day Years [...] treatment plan is, please contact me via [employer] online messaging or call the office at and ask to speak to a nurse. Tony Pittman MD Pain Medicine documented in this encounter Progress Notes Tony Pittman MD - 07/10/2018 3:45 PM CDT [facility] Follow-up Visit 07/10/2018 Interim history: [...] Oxycodone 5 mg Q6H - Prescribes by [facility], has [...] at a pain clinic in the past. [facility] physical [...] anterior cervical fusion 2017 Dr. Ihsan Brooke, [facility] past surgical history reviewed with patient. [...] ??? medical cannabis patient certified Take 1 [place] by mouth . ??? naloxone (NARCAN) 4 [...] 0 No facility-administered medications prior to visit. [place] and [place] Prescription Monitoring Program reviewed Allergies: Allergies Allergen [...] in her mother. Social history:she lives in [place], [place].she is not currently working. Smokin/2 ppd. 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 Patient education: I [...] MD Pain Medicine Physical Medicine and Rehabilitation [facility] This document serves as a record of services personally performed by Tony iPttman MD. It was created on his behalf by Gillian Harding, a trained diagnostic medical sonographer. The creation of this record is based [...] status documented in this encounter Care Teams Gas Desulfurizer Relationship Specialty Start Date End Date Jose Holden MD PCP - General Otolaryngology 12/14/[address] [place], [place] [address] [address] documented as of this encounter
--- OUTSIDE RECORDS SUMMARY | 2022-08-01 07:36 | XMS_ITS | Encounter Summary ---
:1965 [facility] Address [address] [place] [address] Care Team Providers Name Role Phone Jose Holden MD Primary Care Provider [phone] Reason for Visit Reason Comments Medication Request Encounter Details Date Type Department Care Team Description 12/08/2019 Telephone Careline Unknown, Physician Medication Request [address] [place], [place] [address] [place], [place] [phone] (Wo rk) Social History Tobacco Use Types [...] pain medication. Pt advised to surgeon at [place]. TH AND WELLNESS ADVISOR documented in this encounter Plan of Treatment Not on filedocumented as of this encounter Visit Diagnoses Not on filedocumented in this encounter Care Teams Business System Manager Relationship Specialty Start Date End Date Jose Holden MD PCP - General Otolaryngology 12/14/17 [address] [place] [address] documented as of this encounter
--- OUTSIDE RECORDS SUMMARY | 2022-08-01 07:36 | XMS_ITS | Encounter Summary ---
:1965 [facility] Address [address] [place] [address] Care Team Providers Name Role Phone Jose Holden MD Primary Care Provider [phone] Reason for Referral Therapies (Routine) - Closed Specialty Diagnoses / Procedures Referred By Contact Refer red To Contact Diagnoses S/P cervical spinal fusion Pete Gonzalez MD [facility] [address] [place] [address] Referral ID Status Reason Start Date Expiration Date Visits Requ ested Visits Authorized [id number] Closed 12/26/2018 02/24/2019 1 1 Scheduling Instructions Your provider has recommended an appoint ment with a [facility] Physical Therapist. Please stop at the clinic check out desk for assistance with scheduling or if you prefer to call for your appointment you may call [facility] Outpatient Rehabilitation at [phone]. We suggest you call your [facility] insurance company about your coverage and benefits for this appointment. NESS INTELLIGENCE ARCHITECT Reason for Visit Reason Comments Revisit Encounter Details Date Type Department Care Team Description 12/26/2018 Office Visit [facility] Pete Gonzalez, S/P miguelito al spinal [facility] fusion (Primary Dx) [facility] [address] [facility] [address] [place] [address] [place] [address] [phone] Social History Tobacco Use Types Packs/Day Years [...] Comments Blood Pressure 115/72 12/26/2018 1:48 PM BUSINESS INTELLIGENCE ARCHITECT Pulse 70 12/26/2018 1:48 PM BUSINESS INTELLIGENCE ARCHITECT Temperature 36.5 ??C (97.7 ??F) 12/26/2018 1:48 PM BUSINESS INTELLIGENCE ARCHITECT Respiratory Rate - - Oxygen Saturation - - Inhaled Oxygen Concentration - - Weight 71.2 kg (157 lb) 12/26/2018 1:48 PM BUSINESS INTELLIGENCE ARCHITECT Height 152.4 cm (5') 12/26/2018 1:48 PM BUSINESS INTELLIGENCE ARCHITECT Body Mass Index 30.66 12/26/2018 1:48 PM BUSINESS INTELLIGENCE ARCHITECT documented in this encounter Patient Instructions Patient [...] your understanding. Please call the Neurosurgery Center [phone] with any further questions or concerns or if your symptoms worsen. Thank you for coming to see us today. We are your partner. NESS INTELLIGENCE ARCHITECT documented in this encounter Progress Notes Pete [...] at her current physical therapy Center at [facility] and also continued pain management in [...] is prone to typos and grammatical errors. NESS INTELLIGENCE ARCHITECT documented in this encounter Plan of Treatment Scheduled Referrals Name Type Priority Associated Diagnoses Order [facility] Physical Therapy Referral Routine S/P cervical spinal fusi on Ordered: 12/26/2018 documented as of this encounter Visit Diagnoses Diagnosis S/P cervical spinal fusion - Primary Arthrodesis status documented in this encounter Care Teams Police District Switchboard Operator Relationship Specialty Start Date End Date Jose Holden MD PCP - General Otolaryngology 12/14/17 [place] [address] documented as of this encounter
--- OUTSIDE RECORDS SUMMARY | 2022-08-01 07:36 | XMS_ITS | Encounter Summary ---
:1965 Author Organization [facility] Address [address] [place] [address] Care Team Providers Name Role Phone Jose Holden MD Primary Care Provider [phone] Encounter Details Date Type Department Care Team Description 03/06/2019 Consent for [facility] Procedure/Treat [facility] Tony Alvarado MD [facility] ent Pain Management [address] TREATMENT [address] [place] [phone] Social History Tobacco Use Types Packs/Day Years [...] on filedocumented in this encounter Care Teams Polytechnic Registrar Relationship Specialty Start Date End Date Jose Holden MD PCP - General Otolaryngology 12/14/[address] [place] [address] documented as of this encounter
--- OUTSIDE RECORDS SUMMARY | 2022-08-01 07:36 | XMS_ITS | Encounter Summary ---
:1965 Author Organization [facility] Address [address], [place] [address] Care Team Providers Name Role Phone Jose Holden MD Primary Care Provider [phone] Encounter Details Date Type Department Care Team Description 11/10/2018 Emergency Room External to External, Provid er FALL/HEADACHE NECK LT No address [place] [address] Social History Tobacco Use Types Packs/Day Years [...] on filedocumented in this encounter Care Teams Wind Farm Operations Manager Relationship Specialty Start Date End Date Jose Holden MD PCP - General Otolaryngology 12/14/17 [place] [address] documented as of this encounter
--- OUTSIDE RECORDS SUMMARY | 2022-08-01 07:36 | XMS_ITS | Encounter Summary ---
:1965 Author Organization [facility] Address [address], [place] [address] Care Team Providers Name Role Phone Jose Holden MD Primary Care Provider [phone] Reason for Visit Reason Comments Forms Encounter Details Date Type Department Care Team Description 07/11/2018 Telephone [facility] Pete Gonzalez MD Forms Center [facility]tho [address] [facility] [place] [place] [address] [address] [place] [address] [phone] Social History Tobacco Use Types Packs/Day Years [...] on filedocumented in this encounter Care Teams Service Station Operator Relationship Specialty Start Date End Date Jose Holden MD PCP - General Otolaryngology 12/14/17 [place] [address] documented as of this encounter
--- OUTSIDE RECORDS SUMMARY | 2022-08-01 07:36 | XMS_ITS | Encounter Summary ---
:1965 Author [facility] Address [address], [place] [address] Care Team Providers Name Role Phone Jose Holden MD Primary Care Provider [phone] Reason for Visit Reason Comments Revisit trigger point injections/occ ipital nerve blocks Encounter Details Date Type Department Care Team Description 03/06/2019 Office Visit [facility] Pittman, Bilateral occ ipital neuralgia (Primary Dx); Neuroscience Center Carole Bowden Myalgia; Pain Management [address] Cervical vertebral fusion; [address] [place], [place] Spondylosis of cervical princess on [place] [phone] Social History Tobacco Use Types Packs/Day Years [...] treatment plan is, please contact me via [employer] online messaging or call the office at and ask to speak to a nurse. Tony Pittman MD Pain Medicine documented in this encounter Progress Notes Tony Pittman MD - 03/06/2019 2:45 PM CDT [facility] Follow-up Visit 03/06/2019 Interim history: [...] Oxycodone 5 mg Q6H - Prescribes by [facility], has been taking for [...] at a pain clinic in the past. [facility] physical therapy: Past Acupuncture: [...] ??? medical cannabis patient certified Take 1 [place] by mouth . ??? naloxone (NARCAN) 4 [...] Gain No facility-administered medications prior to visit. [place] and [place] Prescription Monitoring Program reviewed Allergies: Allergies Allergen [...] in her mother. Social history:she lives in [place], [place].she is not currently working. Smokin/2 ppd. [...] limited. Significant posterior surgical deformity of neck. Motor Vehicle Field Representative to palpation bilateral levator scapulae, splenius, trapezius [...] These are unchanged from previous. 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 Patient education: I [...] MD Pain Medicine Physical Medicine and Rehabilitation [facility] Pain Management This note created using [...] myelopathy documented in this encounter Care Teams Metal Tile Setter Relationship Specialty Start Date End Date Jose Holden MD PCP - General Otolaryngology 12/14/[address] [place] [address] documented as of this encounter
--- OUTSIDE RECORDS SUMMARY | 2022-08-01 07:36 | XMS_ITS | Encounter Summary ---
:1965 Author Organization [facility] Address [address] [place] [address] Care Team Providers Name Role Phone Jose Holden MD Primary Care Provider Reason for Referral Consult/Transfer Care (Routine) - Closed Specialty Diagnoses / Procedures Referred By Contact Refer red To Contact Diagnoses Traumatic brain injury, without loss of consciousness, initial encounter (HRC) Tony Pittman MD [address] [place] [address] Referral ID Status Reason Start Date Expiration Date Visits Requ ested Visits Authorized [id number] Closed 12/26/2018 03/26/2020 1 1 Scheduling Instructions Your provider [facility]. You may call to schedule your appointment. If you prefer, a injection press operator will contact you [facility] the next 3 business days to assist you in setting up this appointment. GENCY PREPAREDNESS COORDINATOR Reason for Visit Reason Comments Revisit Bilateral cervical/thoracic trigger point injections Encounter Details Date Type Department Care Team Description 12/26/2018 Office Visit Tony Huggins occipital neuralgia (Primary Dx); [facility] Pain RMD Myalgia; Management [address] H/O cervical spinal arthrodesis; [address] [place], [place] Traumatic brain injury, with out loss of consciousness, initial encounter (HRC) [place] [phone] Social History Tobacco Use Types Packs/Day Years [...] Comments Blood Pressure 115/72 12/26/2018 2:48 PM EMERGENCY PREPAREDNESS COORDINATOR Pulse 70 12/26/2018 2:48 PM EMERGENCY PREPAREDNESS COORDINATOR Temperature - - Respiratory Rate - - [...] treatment plan is, please contact me via [employer] online messaging or call the office at and ask to speak to a nurse. Tony Pittman MD Pain Medicine GENCY PREPAREDNESS COORDINATOR documented in this encounter Progress Notes Tony Pittman MD - 12/26/2018 2:15 PM CST [facility] Follow-up Visit 08/14/2018 [...] Patient continues to get chronic oxycodone from [facility] in [place] and does not planon decreasing her dosage. [...] Oxycodone 5 mg Q6H - Prescribes by [facility], has been taking for [...] at a pain clinic in the past. [facility] physical therapy: Past Acupuncture: [...] ??? medical cannabis patient certified Take 1 [place] by mouth . ??? naloxone (NARCAN) 4 [...] facility-administered medications prior to visit. [place] and [place] Prescription Monitoring Program reviewed Allergies: [...] in her mother. Social history:she lives in [place], [place].she is not currently working. Smokin/2 ppd. [...] to traumatic brain injury clinic. 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 Patient education: I [...] MD Pain Medicine Physical Medicine and Rehabilitation [facility] This document serves as a record of services personally performed by Tony Pittman MD. It was created on his behalf by Gillian Harding, a trained emergency medical services coordinator. The creation of this record is based on the scribe's personal observations and the provider's statements to her. The document has been checked and approved by the attending provider. GENCY PREPAREDNESS COORDINATOR documented in this encounter Plan of Treatment Scheduled Referrals Name Type Priority Associated Diagnoses Order S [facility] Referral Routine Traumatic brain injury, with out loss Ordered: 12/26/2018 of consciousness, initial en counter (HRC) documented as of this encounter Visit Diagnoses Diagnosis Bilateral occipital neuralgia - Primary Myalgia Mylagia and myositis, unspecified H/O cervical spinal arthrodesis Arthrodesis status Traumatic brain injury, without loss of consciousness, initial encounter (HRC) documented in this encounter Care Teams Booster Station Operator Relationship Specialty Start Date End Date Jose Holden MD PCP - General Otolaryngology 12/14/[address] [place] [id number] documented as of this encounter
--- OUTSIDE RECORDS SUMMARY | 2022-08-01 07:36 | XMS_ITS | Encounter Summary ---
:1965 Author Organization [facility] Address [address], [place] [address] Care Team Providers Name Role Phone Jose Holden MD Primary Care Provider [phone] Reason for Visit Reason Comments Revisit Bilateral cervical/thoracic trigger point injections Encounter Details Date Type Department Care Team Description 08/14/2018 Office Visit [facility] occipital neuralgia (Primary Dx); [facility] Pain RMD Myalgia; Management [address] H/O cervical spinal arthrodesis [address] [place] [address] [phone] Social History Tobacco Use Types Packs/Day Years [...] Pittman MD - 08/14/2018 3:00 PM CDT [facility] Follow-up Visit 08/14/2018 Interim history: [...] ??? medical cannabis patient certified Take 1 [place] by mouth . ??? naloxone (NARCAN) 4 [...] facility-administered medications prior to visit. [place] and [place] Prescription Monitoring Program reviewed Allergies: Allergies Allergen [...] in her mother. Social history:she lives in [place], [place].she is not currently working. Smokin/2 ppd. [...] of occipital nerve block today Barriers: 1. assisted opioid use Plan: 1. Patient education: I [...] MD Pain Medicine [facility] This document serves as a record of services personally performed by Tony Pittman MD. It was created on his behalf by Gillian Harding, a trained behavioral medical director. The creation of this record is [...] status documented in this encounter Care Teams Bad Work Gatherer Relationship Specialty Start Date End Date Jose Holden MD PCP - General Otolaryngology 12/14/17 [facility] [place] [address] documented as of this encounter
--- OUTSIDE RECORDS SUMMARY | 2022-08-01 07:36 | XMS_ITS | Encounter Summary ---
:1965 Author Organization [facility] Address [address] [place] [address] Care Team Providers Name Role Phone Jose Holden MD Primary Care Provider [phone] Encounter Details Date Type Department Care Team Description 06/29/2018 Consent for [facility] Procedure/Treat [facility] Tony Alvarado MD FOR TX/PROCEDURE ent Pain Management [address] [place] [address] [phone] Social History Tobacco Use Types Packs/Day Years [...] on filedocumented in this encounter Care Teams Wrecking Supervisor Relationship Specialty Start Date End Date Jose Holden MD PCP - General Otolaryngology 12/14/[address] [place], [place] [phone] documented as of this encounter
--- OUTSIDE RECORDS SUMMARY | 2022-08-01 07:36 | XMS_ITS | Encounter Summary ---
:1965 Author Organization [facility] Address [address] [place] [address] Care Team Providers Name Role Phone Jose Holden MD Primary Care Provider [phone] Encounter Details Date Type Department Care Team Description 12/26/2018 Consent for [facility] Pittman, CONSENT FOR Procedure/[facility] Tony Alvarado MD PROCEDURE ent Pain Management [address] [place] [phone] Social History Tobacco Use Types Packs/Day Years [...] on filedocumented in this encounter Care Teams Tong Hooker Relationship Specialty Start Date End Date Jose Holden MD PCP - General Otolaryngology 12/14/[address] [place] [address] documented as of this encounter
--- OUTSIDE RECORDS SUMMARY | 2022-08-01 07:36 | XMS_ITS | Encounter Summary ---
:1965 [facility] Address [address] [place] [address] Care Team Providers Name Role Phone Jose Holden MD Primary Care Provider [phone] Reason for Referral Procedure/Equipment (Routine) - Closed Specialty Diagnoses / Procedures Referred By Contact Refer red To Contact Diagnoses Dizziness Concussion with loss of consciousness of 30 minutes or less, subsequent encounter Alyse Carias, PT [address] [place] [address] Referral ID Status Reason Start Date Expiration Date Visits Requ ested Visits Authorized [id number] Closed 03/06/2019 06/04/2020 20 20 Scheduling Instructions . Reason for Visit Reason Comments Concussion Therapies (Routine) - Closed Specialty Diagnoses / Procedures Referred By Contact Refer red To Contact Diagnoses Impairment of balance Dizziness Blanka Mead, HEART NURSE, CN P [address] [place] [address] Referral ID Status Reason Start Date Expiration Date Visits Requ ested Visits Authorized [id number] Closed 02/16/2019 04/17/2019 1 1 Encounter Details Date Type Department Care Team Description 03/06/2019 Office Visit Alyse Bee Dizziness (Primary Dx); [facility] A, PT Concussion with loss of consciousness of 30 minutes or less, subsequent encounter Physical Therapy [address] [place] [address] [phone] Social History Tobacco Use Types Packs/Day Years [...] impacting her status (scheduled for surgery at [facility] on 02/28/19). Tinnitus- scheduled for hearing assessment [...] limited function due to PMH Lives in [place]. Independent with ADLs, driving. Current Level of Function: Currently not-employed. Lives alone in apartment. Difficulty bending down She does endorse LOS in home setting. Previous Therapy for This Condition: PT for neck (01/23/19- refaxed orders) Patient Goals: Return to previous level of function and Increased function OBJECTIVE Posture/Observations: alert, oriented, cooperative. forward head posturing. Carrying multiple bags and able to pickle solution maker from floor to chair without LOS. Functional [...] within her allowable cervical ROM). Access Code: [email or web address] URL: [email or web address] Date: 03/06/2019 Prepared by: Alyse Carias Exercises Standing Gaze Stabilization with Head Rotation - 1-3 reps - 30-40 seconds - 3x daily - 7x weekly Education regarding Rule of 2 -Discussed option of closer location to her home yet noted she would be able to attend at [facility]. Patient's Response to Therapy: Good Home Program [...] encounter documented in this encounter Care Teams Forestry Fire Aide Relationship Specialty Start Date End Date Jose Holden MD PCP - General Otolaryngology 12/14/17 [facility] [place] [address] documented as of this encounter
--- OUTSIDE RECORDS SUMMARY | 2022-08-01 07:36 | XMS_ITS | Encounter Summary ---
:1965 Author Organization [facility] Address [address] [facility] [place] [address] Care Team Providers Name Role Phone Unavailable Primary Care Provider Unavailable Encounter Details Date Type Department Care Team Description 04/15/[address] [facility] Evelio Lamar MD Hospital Results [address] [place] [phone] (Wo rk) Social History Tobacco Use Types [...] She states that her pain clinic in [place] gave her new prescriptions to be filled [...] pain. SOCIAL HISTORY: The patient lives in [place]. Her primary care physician is Dr. Holley De La Rosa in [place], [place]. Her chronic pain doctor is Dr. Garcia at [facility] in [place]. Thepatient has had previous cervical and lumbar [...] I did speak with Dr. Torres the [place] [facility] who review her records with [...] Compazine. I gave her referral information for [facility] if she has further problems while she was in [place]. She plans to be here another 1-2 weeks. DISCHARGE DIAGNOSES: 1. Acute exacerbation of chronic back pains. 2. Nausea. Electronically signed on 05/01/2009 06:49 by EVELIO LAMAR MD MT: [id number] Name: KAYLIN MOSQUERA MRN: [id number] Account: [id number] : 1965 Visit Date: 04/15/2009 Document: [id number] cc: Oc De La Rosa MD documented in this encounter Plan of Treatment Not on filedocumented as of this encounter Visit Diagnoses Not on filedocumented in this encounter
--- OUTSIDE RECORDS SUMMARY | 2022-08-01 07:36 | XMS_ITS | Encounter Summary ---
:1965 Author Organization [facility] Address [address] [place] [address] Care Team Providers Name Role Phone Jose Holden MD Primary Care Provider [phone] Encounter Details Date Type Department Care Team Description 07/10/2018 Consent for [facility] Procedure/Treat [facility] Tony Alvarado MD FOR TX/PROCEDURE ent Pain Management [address] [place] [phone] Social History Tobacco Use Types Packs/Day Years [...] on filedocumented in this encounter Care Teams Sales Clerk Relationship Specialty Start Date End Date Jose Holden MD PCP - General Otolaryngology 12/14/[address] [place], [place] [phone] documented as of this encounter
--- OUTSIDE RECORDS SUMMARY | 2022-08-01 07:36 | XMS_ITS | Encounter Summary ---
:1965 Author Organization [facility] Address [address] [place] [address] Care Team Providers Name Role Phone Jose Holden MD Primary Care Provider [phone] Encounter Details Date Type Department Care Team Description 02/06/2019 Consent for [facility] Procedure/Treatm [facility] Tony Alvarado MD FOR TX/PROCEDURE ent Pain Management [address] [place] [phone] Social History Tobacco Use Types Packs/Day Years [...] on filedocumented in this encounter Care Teams Group Director Relationship Specialty Start Date End Date Jose Holden MD PCP - General Otolaryngology 12/14/[address] [place], [place] [phone] documented as of this encounter
--- OUTSIDE RECORDS SUMMARY | 2022-08-01 07:36 | XMS_ITS | Encounter Summary ---
:1965 Author Organization [facility] Address [address] [place] [address] Care Team Providers Name Role Phone Jose Holden MD Primary Care Provider [phone] Reason for Visit Reason Comments UPDATE Encounter Details Date Type Department Care Team Description 07/07/2018 Telephone [employer] [facility] Gume Pittman, UPDATE [facility] [address] [place] [address] [place] [address] [phone] (Wo rk) Social History Tobacco Use Types [...] Arenas RN - 07/07/2018 12:44 PM CDT Surgical Tech called patient, she states she has left neck/shoulder pain that did not improve after TPI's last week. Pt shares her right side of neck/shoulder is getting tight again and she is having headaches. Pt wants to proceed with occipital nerve blocks for her headache. Surgical Tech offered patient appointment 07/10 which she accepted. [...] blocks instead in the future ??Barriers: 1. skilled nursing opioid use ??Plan: 1. Patient education: I [...] on filedocumented in this encounter Care Teams Welt Sewer Relationship Specialty Start Date End Date Jose Holden MD PCP - General Otolaryngology 12/14/17 [place] [address] documented as of this encounter
--- OUTSIDE RECORDS SUMMARY | 2022-08-01 07:36 | XMS_ITS | Encounter Summary ---
:1965 Author Organization [facility] Address [address], [place] [address] Care Team Providers Name Role Phone Jose Holden MD Primary Care Provider [phone] Reason for Visit Reason Comments Revisit Encounter Details Date Type Department Care Team Description 08/14/2018 Office Visit [facility] Pete Gonzalez, Neck pain (Primary [facility] MD Dx) Neurosurgery/Ortho [address] [facility] [address] [facility] [place], [place] [address] [address] [phone] Social History Tobacco Use Types Packs/Day Years [...] Surgery center (4th floor [address], [place]).prior to your next appointment. Follow up: with [...] your understanding. Please call the Neurosurgery Center [phone] with any further questions or concerns or [...] Cervicalgia documented in this encounter Care Teams Livestock Handler Relationship Specialty Start Date End Date Jose Holden MD PCP - General Otolaryngology 12/14/17 [facility] [place] [address] documented as of this encounter
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
--- OUTSIDE RECORDS SUMMARY | 2022-08-01 07:36 | XMS_ITS | Encounter Summary ---
:1965 Author Organization [facility] Address [address], [place] [address] Care Team Providers Name Role Phone Jose Holden MD Primary Care Provider [phone] Reason for Visit Procedure/Equipment (Routine) - Incomplete Specialty Diagnoses / Procedures Referred By Contact Refer red To Contact Diagnoses S/P cervical spinal fusion Sirisha Rankin, Procedures XR Cervical Spine AP/Lat Upright VICE PRESIDENT FOR INSTRUCTION, PARTNER MARKETING MANAGER [address] [place] [address] Referral ID Status Reason Start Date Expiration Date Visits V isits Requested Authorized [id number] Incomplete 10/10/2018 01/09/2020 1 1 Encounter Details Date Type Department Care Team Description 12/26/2018 Ancillary [facility] Sneha Maher, S/P cervi france Procedure [facility] Sirisha Celaya, VICE PRESIDENT FOR INSTRUCTION, spinal fusion Radiology PARTNER MARKETING MANAGER [address] [place] [address] [place], [place] [phone] [facility] Social History Tobacco Use Types Packs/Day Years [...] spin al Results for this AP/LAT UPRIGHT MANAGER SPRING fusion procedure are in the results section. documented in this encounter Results XR Cervical Spine AP/Lat Upright (12/26/2018 1:44 PM MANAGER SPRING) Anatomical Region Laterality Modality Spine, C-Spine, Neck Computed Radiograph y Specimen (Source) Anatomical Collection Method Collection Time Re ceived Time Location / / Volume Laterality 12/26/2018 1:44 PM MANAGER SPRING Narrative 12/26/2018 3:41 PM MANAGER SPRING EXAM: XR CERVICAL SPINE AP/LAT UPRIGHT LOCATION: [facility] DATE/TIME: 12/26/2018 1:44 PM INDICATION: [...] EXAM: XR CERVICAL SPINE AP/LAT UPRIGHT LOCATION: [facility] DATE/TIME: 12/26/2018 1:44 PM INDICATION: [...] C1-2 level on lateral view. Sirisha Maher VICE PRESIDENT FOR INSTRUCTION, PARTNER MARKETING MANAGER RAD GD documented in this encounter Visit Diagnoses Diagnosis S/P cervical spinal fusion Arthrodesis status documented in this encounter Care Teams Fare Collector Relationship Specialty Start Date End Date Jose Holden MD PCP - General Otolaryngology 12/14/17 [place] [address] documented as of this encounter
--- OUTSIDE RECORDS SUMMARY | 2022-08-01 07:37 | XMS_ITS | Encounter Summary ---
:1965 Author Organization [facility] Address [address] [address] Care Team Providers Name Role Phone Jose Holden MD Primary Care Provider [phone] Reason for Visit Reason Comments QUESTIONS, GENERAL Encounter Details Date Type Department Care Team Description 03/01/2018 Telephone [facility] Pete Gonzalez MD QUESTIONS, GENERAL [facility] [address] [facility] Neurosurgery/Ortho [address] [place], [place] [address] [address] [place] [address] [phone] Social History Tobacco Use Types Packs/Day Years Used Date Smoking Tobacco: Every Day Cigarettes 0.5 30 Smokeless Tobacco: Never Comments: 30 year smoker on and off, 0.5 a day Alcohol Use Standard Drinks/Week Comments No 0 (1 standard drink = 0.6 oz pure alcoho l) Sex Assigned at Date Recorded Not on file documented as of this encounter Nursing Notes Chava Smion RN - 03/01/2018 11:27 AM CDT Patient [...] she should go to the ED in [place]? Please review and advise. Chantel Angela 03/01/2018, 11:15 AM documented in this encounter Plan of Treatment Not on filedocumented as of this encounter Visit Diagnoses Not on filedocumented in this encounter Care Teams Bus Van Driver Relationship Specialty Start Date End Date Jose Holden MD PCP - General Otolaryngology 12/14/17 [facility][note 2] [place] [address] documented as of this encounter
--- OUTSIDE RECORDS SUMMARY | 2022-08-01 07:37 | XMS_ITS | Encounter Summary ---
:1965 [facility] Address [address] [place] [address] Care Team Providers Name Role Phone Jose Holden MD Primary Care Provider [phone] Reason for Visit Reason Comments UPDATE Pain Encounter Details Date Type Department Care Team Description 06/22/2018 Telephone [facility] Neuroscience Gume Pittman R, UPDATE; [facility] [address] [place] [address] [place] [address] [phone] (Wo rk) Social History Tobacco Use Types [...] Arenas RN - 06/26/2018 10:02 AM CDT [employer] called patient, notified info below. [employer] offered patient appt today however she cannot [...] returned post TPI's from 3 days ago. 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 Patient education: I went over the above diagnoses and treatment plan with her and answered all of her questions. 2. Imaging review: None 3. Exercise program: Regular exercise and activity 4. Medications: No changes. Do not recommend skilled nursing opioid use, continue to decrease use until [...] Pain Medicine Physical Medicine and Rehabilitation [facility]. Obi Echeverria - 06/22/2018 4:29 [...] on filedocumented in this encounter Care Teams Bakery Worker Relationship Specialty Start Date End Date Jose Holden MD PCP - General Otolaryngology 12/14/17 [place] [address] documented as of this encounter
--- OUTSIDE RECORDS SUMMARY | 2022-08-01 07:37 | XMS_ITS | Encounter Summary ---
:1965 Author Organization [facility] Address [address] [place] [address] Care Team Providers Name Role Phone Jose Holden MD Primary Care Provider [phone] Reason for Visit Reason Comments Revisit Bilateral cervical/thoracic trigger point injections Encounter Details Date Type Department Care Team Description 06/20/2018 Office Visit [facility] My[facility] (Primary Dx); [facility] Pain RMD H/O cervical spinal arthrodesis; Management [address] Cervical vertebral fusion; [address] [place], [place] Fibromyalgia; [place] [address] Tobacco use disorder; [phone] Status post tot al left knee replacement [...] treatment plan is, please contact me via [facility] online messaging or call the office at [...] Oxycodone 5 mg Q6H - Prescribes by [facility], has been taking for [...] at a pain clinic in the past. [facility] physical therapy: Past Acupuncture: [...] anterior cervical fusion 2016 Dr. Ihsan Brooke, [facility] past surgical history reviewed with patient. [...] Gain No facility-administered medications prior to visit. [place] and [place] Prescription Monitoring Program reviewed Allergies: [...] in her mother. Social history:she lives in [place], [place].she is not currently working. Smokin/2 ppd. 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 Patient education: I went over the above diagnoses and treatment plan with her and answered all of her questions. 2. Imaging review: None 3. Exercise program: Regular exercise and activity 4. Medications: No changes. Do not recommend long term acute care registered nurse opioid use, continue to decrease use until [...] MD Pain Medicine Physical Medicine and Rehabilitation Pending sale to [facility] This document serves as a record of services personally performed by Tony Pittman MD. It was created on his behalf by Gillian Harding, a trained medical housekeeper. The creation of this record is based [...] replacement documented in this encounter Care Teams Project Designer Relationship Specialty Start Date End Date Jose Holden MD PCP - General Otolaryngology 12/14/17 [facility] [place] [address] documented as of this encounter
--- OUTSIDE RECORDS SUMMARY | 2022-08-01 07:37 | XMS_ITS | Encounter Summary ---
:1965 Author Organization [facility] Address [address], [place] [address] Care Team Providers Name Role Phone Jose Holden MD Primary Care Provider [phone] Reason for Visit Auth/Cert Specialty Diagnoses / [...] Expiration Date Visits Requ ested Visits Authorized [id number] 1 1 Encounter Details Date Type Department Care Team Description 02/20/2018 [facility] Pete Gonzalez MD [address] [place] [address] [place] [address] [phone] (Wo rk) Social History Tobacco Use Types [...] on filedocumented in this encounter Care Teams Customizer Relationship Specialty Start Date End Date Jose Holden MD PCP - General Otolaryngology 12/14/17 [facility] [place] [address] documented as of this encounter
--- OUTSIDE RECORDS SUMMARY | 2022-08-01 07:37 | XMS_ITS | Encounter Summary ---
:1965 Author Organization [facility] Address [address] [place] [address] Care Team Providers Name Role Phone Jose Holden MD Primary Care Provider [phone] Reason for Referral Therapies (Routine) - Closed Specialty Diagnoses / Procedures Referred By Contact Refer red To Contact Diagnoses S/P cervical spinal fusion Pete Gonzalez MD [address] [place] [id number] Referral ID Status Reason Start Date Expiration Date Visits Requ ested Visits Authorized [id number] Closed 06/26/2018 08/25/2018 1 1 Scheduling Instructions Your provider has recommended an appoint ment with a [facility] Physical Therapist. Please stop at the clinic check out desk for assistance with scheduling or if you prefer to call for your appointment you may call [facility] [place] at [phone]. We suggest yo u call your health insurance company about your coverage and benefits for this appo intment. Reason for Visit Reason Comments RESULTS, TEST Orders Needed Encounter Details Date Type Department Care Team Description 06/22/2018 Telephone [facility] Pete Gonzalez MD RESULTS, TEST; Orders [facility] [address] [facility] Neurosurgery/Ortho [address] [place] [address] [place] [id number] (Wo rk) Social History Tobacco Use Types [...] getting a stimulator or morphine pump through [facility]. She is wondering if she should wait and discuss possible surgical options with Dr. Gonzalez or just get the stimulator or morphine pump? Please advise. Chava Simon RN 06/28/2018, 8:45 AM Michael Cruz - 06/28/2018 8:25 AM CDT Patient calling in regards to her imaging results. Microelectronics Technician relayed message from Lois Pham PA-C. Patient states that she would like a return call. Patient states she doesn't understand why there are no acute concerns? She will be seeing [facility] to discuss getting a stimulator or morphine pump. Patient would like to know if she should move forward with this from Neurosurgery standpoint. Please call patient to further discuss and advise. Michael Cruz 06/28/2018, 8:27 AM Chava Simon RN - 06/28/2018 8:24 AM CDT [facility] Chava Simon RN 06/28/2018, 8:26 AM [...] Michael Cruz - 06/26/2018 11:18 AM CDT Microelectronics Technician reached patient and relayed message below to her. Patient expressed her appreciation. Per herrequest order has been sent to [facility] at [phone] with a note to have them call patient to schedule. Patient aware they will reach out to schedule her for PT. She also states she picked up a copy of her imaging and they relayed that they had alreadysent one. Microelectronics Technician called their radiology department and spoke to Selena who states a CD was not mailed out and she is not sure why. She took down clinic address of [address] [address] and stated she would send one out [...] sure she has had this sent from [facility] for team to review. Chava Simon RN [...] of CT and MRIthat were done at [facility] on 06/20. Informed pt that Dr. Gonzalez's [...] status documented in this encounter Care Teams Director Of Medical Services Relationship Specialty Start Date End Date Jose Holden MD PCP - General Otolaryngology 12/14/17 [facility] [place] [address] documented as of this encounter
--- OUTSIDE RECORDS SUMMARY | 2022-08-01 07:37 | XMS_ITS | Encounter Summary ---
:1965 [facility] Address [address] [address] Care Team Providers Name Role Phone Jose Holden MD Primary Care Provider [phone] Reason for Referral Procedure/Equipment (Routine) - Incomplete Specialty Diagnoses / Procedures Referred By Contact Refer red To Contact Diagnoses Cervical spondylosis with radiculopathy (HRC) Sirisha Rankin, Procedures XR Cervical Spine AP/Lat Upright KALPANA SHER [address] [place] [address] Referral ID Status Reason Start Date Expiration Date Visits V isits Requested Authorized [id number] Incomplete 02/21/2018 05/23/2019 1 1 (Routine) Specialty Diagnoses / Procedures Referred By Contact Refer red To Contact Sirisha Rankin APRN, CNP [address] [place] [address] Referral ID Status Reason Start Date Expiration Date Visits Requ ested Visits Authorized (Routine) - Incomplete Specialty Diagnoses / Procedures Referred By Contact Refer red To Contact Procedures Marky Gonzalez MD XR C-Arm 0-30 Minutes [address] [place] [address] Referral ID Status Reason Start Date Expiration Date Visits V isits Requested Authorized [id number] Incomplete 02/20/2018 05/22/2019 1 1 Procedure/Equipment (Routine) - Incomplete Specialty Diagnoses / Procedures Referred By Contact Refer red To Contact Procedures Lois Pham, STEPHANIE XR Cervical Spine AP/Lat [address] [place], [place] [address] Referral ID Status Reason Start Date Expiration Date Visits V isits Requested Authorized [id number] Incomplete 02/20/2018 05/22/2019 1 1 (Routine) - Incomplete Specialty Diagnoses / Procedures Referred By Contact Refer red To Contact Procedures Marky Gonzalez MD XR C-Arm 30-[address] [place] [address] XR C-Arm 0-30 Minutes [place], [place] [address] Referral ID Status Reason Start Date Expiration Date Visits V isits Requested Authorized [id number] Incomplete 02/20/2018 05/22/2019 1 1 (Routine) - Incomplete Specialty Diagnoses / Procedures Referred By Contact Refer red To Contact Procedures Marky Gonzalez MD XR C-Arm 2.5-[address] [place] [place] [address] Referral ID Status Reason Start Date Expiration Date Visits V isits Requested Authorized [id number] Incomplete 02/20/2018 05/22/2019 1 1 Reason for [...] Expiration Date Visits Requ ested Visits Authorized [id number] 1 1 Encounter Details Date Type Department Care Team Description 02/20/2018 - Hospital [facility] Marky Gonzalez, Cervical spondylosis with ra diculopathy (Primary Dx); 02/23/2018 Encounter [address] Ervin MD Cervical vertebral fusion; [employer] [place], [place] [address] [place] 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 ([facility]); [address] Neck pain; [phone] [facility], [place]; [place] [address] Pseudarthrosis after fusion or arthrodes is; [phone] Bipolar II diso rder ([facility]); (Work) Moderate persistent asthma without statu s [...] in this encounter Discharge Summaries Sirisha Rankin, LEAKAGE TESTER, SITE ADMINISTRATOR - 02/23/2018 9:09 AM CDT Neurosurgery Discharge [...] Hospital Course: Angie Bender was admitted to [facility] on 02/20/2018 following posterior C2-T3 [...] 9.4 - 12.4 fl Narrative Performed at [facility], [address] [place] [address] Physical Exam: BP 124/78 Pulse 74 Temp [...] in strength to your extremeties. Neurosurgery clinic [phone]. If it is after hours, please call [...] RN on 03/07 at 11AM at [address] [facility], 2nd floor. 2. Follow up with Dr. Gonzalez/Lois Pham PA-C/Sirisha Maher NP on 04[facility]00PM [facility] Patient also instructed to call clinic at [phone] or hospital for any questions or concerns. Patient verbalizes understanding and states no further questions at this time. 3. Follow up with PCP for any medical issues Total time spent at the time of discharge was 30 minutes Sirisha Maher APRN, CNP [facility]#[phone] documented in this encounter Discharge Instructions Discharge InstructionsDonna Ellis RN - 02/23/2018 10:42 AM CDT Hospital Contact Information [address] [address] General Information Discharging physician: Dr. Gonzalez [facility] Resources Emergency & Urgently Needed Care: For emergencies call 911 and/or get medical help right away. If you are a [facility] member and have medical needs after clinic hours you [phone] or . Fall Prevention Recommendations ??? Follow [...] Ellis RN - 02/23/2018 11:50 AM CDT [facility] HOSPITAL Discharge Note - Nursing Admission [...] of Report --- Sneha Maher, Sirisha Celaya, LEAKAGE TESTER, SITE ADMINISTRATOR - 02/23/2018 9:02 AM CDT Neurosurgery Progress [...] including C3- T1 posterior fusion (done in [place] approx 6 years ago), with C6-T1 pseudoarthrosis, [...] Dc home today ?? Sirisha Maher, NIKKY, SITE ADMINISTRATOR 02/23/2018, 9:02 AM Neurosurgery Pgr#[phone] Jolene Kaur PA-C - 02/22/2018 12:45 PM [...] including C3- T1 posterior fusion (done in [place] approx 6 years ago), with C6-T1 pseudoarthrosis, [...] Lois Pham PA-C, 02/22/2018, 9:05 AM Neurosurgery [phone] He Reyes MD - 02/22/2018 8:29 AM [...] He Reyes M.D. [facility] [phone] INTERVAL HISTORY: She started tizanidine last night [...] 02/22/18 0743 Current Outpatient Prescriptions Ordered in [facility] Medication Sig Dispense Refill ??? sennosides-docusate [...] TIME SPENT: 35 minutes including 50% time aflb-gq-vrsp time counseling her about her diagnosis and treatment options, and coordinating care with the primary team. DECISION-MAKING: The level of decision-making in this case is high/complex due to the complexity of medical problems, acute/chronic pain, opioid analgesia issues, and behavioral factors. He Reyes M.D. Brooklyn Whittington - 02/21/2018 1:47 PM CDT [facility] HOSPITAL Care Management Screening Admission Info: [...] She see Dr Dr Estephanie Franz at [facility]. No DC needs anticipated. I verified the demographics on the face sheet for the correct address, phone number, emergency contact and PCP information. Brooklyn Whittington RN CM [phone] Lois Pham PA-C - 02/21/2018 9:23 AM CDT Neurosurgery Progress Note Date of service: 02/21/2018 Subjective: Feels sore. Upset she did not have HEEL SPLITTER overnight. Wants to go smoke. Wants to [...] there were a couple of options including HEEL SPLITTER vs IV pain medications for post op pain control, and rationale for non HEEL SPLITTER at this time. Did discuss that would not recommend DC as drain still has high output. Upright xrays prior to DC Up with assistance Continue hemovac until <30/shift Soft collar when OOB, PRN in bed for comfort PT/OT Dispo: Anticipate home in next 1-2 days pending drain output Lois Pham PA-C, 02/21/2018, 9:23 AM Neurosurgery [phone] He Reyes MD - 02/20/2018 1:20 PM CDT Note from Dr. Covarrubias on 02/13/18: ? 1. On the day of surgery please order an Inpatient pain consult 2. Ketamine 5mg/h during surgery ?? Recommendations for opioids: ?? If using a HEEL SPLITTER: No oral opioids Start a HEEL SPLITTER pump with Dilaudid continuous IV infusion at a basal rate of 0.1 mg/hr with HEEL SPLITTER boluses of 0.2-0.4 mg every 10 minutes. ?? If not using a HEEL SPLITTER: Start dilaudid 2-4mg q3h prn (alternatively can [...] Pham PA-C - 02/20/2018 3:24 PM CDT [facility] Brief Operative Progress Note Surgery Date: 02/20/2018 Surgeon(s) and Role: * Marky Gonzalez MD - Primary PHYSICIAN FULL DECATOR OPERATOR-Meka Pham Pre-op Diagnosis: * Cervical spondylosis with [...] The procedure was medically necessary for an publisher assistant because Dr. Gonzalez needed the operative [...] Lois Pham PA-C, 02/20/2018, 3:25 PM Neurosurgery [phone] Marky Gonzalez MD - 02/20/2018 12:00 AM CDT ANGIE BENDER CSN: [id number] OPERATIVE REPORT DATE OF SURGERY: 02/20/2018 : 1965 SURGEON: MARKY GONZALEZ MD FULL DECATOR OPERATOR: Lois Pham PA-C. PREOPERATIVE DIAGNOSES: 1. Status [...] complications during this case. The assistance of Olis was needed in order to perform surgery with maximum safety and efficacy in a timely fashion. I was scrubbed and present for the entire procedure, performing all critical portions. MD YOLANDE COLEMAN/ALESSANDRO /[id number] cc: MARKY GONZALEZ MD documented in this [...] the risk. She has been on these supervisor intermediates, desires to eventually come off. She also [...] He Reyes M.D. [facility] [phone] HISTORY OF PRESENT ILLNESS: Per Chart Review: [...] headache Opioid prescriber: Rosetta Martin-LEDY Jerry MD-valium BUTTON BREAKER OPERATOR database review: Risk Factors: History of substance [...] Lois Pham PA-C ??? glucose-ascorbic acid (aka [id number]) chewable tablet 4 Tab 4 Tab Oral [...] TIME SPENT: 70 minutes including 50% time tmeh-gx-ivja time counseling her about her diagnosis and treatment options, and coordinating care with the primary team. DECISION-MAKING: The level of decision-making in this case is high/complex due to the complexity of medical problems, acute/chronic pain, opioid analgesia issues, and behavioral factors. documented in this encounter Miscellaneous Notes OR Nursing - Monica Pate RN - 02/20/2018 2:49 PM CDT [facility] Progress Note Patient Name: Angie Bender Date [...] failure. Anatomic alignment. Shoulder prosthesis. Sirisha Maher LEAKAGE TESTER, SITE ADMINISTRATOR RAD GD (ABNORMAL) Complete Blood Count-No Diff (02/22/2018 12:36 PM CDT) P athologist Signature WBC 10.2 4.0 - 11.0 [facility] k/ul HOSPITAL RBC 3.36 (L) 4.0 - 5.2 [facility] M/ul [facility] Hemoglobin 11.1 (L) 12.0 - 16.0 [facility] g/dl HOSPITAL HCT 33.2 (L) 36.0 - 46.0 [facility] MCV 98.8 80 - 100 fl [facility] MCH 33.0 26 - 34 pg [facility] MCHC 33.4 32 - 36 [facility] g/dl HOSPITAL RDW 14.4 11.5 - 14.5 [facility] Platelets 183 150 - 450 [facility] k/[facility] MPV 10.6 9.4 - 12.4 [facility] Specimen Anatomical Collection Method Collection Time Receive d Time (Source) Location / / Volume Laterality 02/22/2018 12:36 02/22/2018 PM CDT 12:37 PM CDT Narrative [facility] - 02/22/2018 12:46 PM C DT Performed at [facility] , [address] [place] [address] Lois Pham PA-C LAB_1 Performing Organization Address City/State/ZIP Code Phon e Number [id number] [place] [address] XR Cervical Spine AP/Lat Upright (02/21/2018 9:50 [...] Organization Address City/State/ZIP Code Phon e Number [address] [address], [facility] [phone] (ABNORMAL) Basic Metabolic Panel (02/21/2018 7:12 AM CDT) athologist Signature Sodium 138 136 - 145 [facility] mmol/L [facility] Potassium 3.9 3.5 - 5.1 [facility] mmol/L [facility] Chloride 111 (H) 98 - 109 [facility] mmol/L [facility] CO2 20 20 - 29 [facility] mmol/L [facility] Anion Gap 7 7 - 16 [facility] (calc.) mmol/L [facility] Glucose 117 70 - 180 [facility] mg/dl [facility]OSPITAL Calcium 8.3 (L) 8.4 - 10.2 [facility] mg/dl [facility]OSPITAL BUN 14 7 - 26 [facility] mg/dl [facility] Creatinine 0.63 0.55 - [facility] 1.02 mg/dl HOSPITAL GFR, Estimated >60 >60 [facility] ml/min/1.7 [facility] 3m2 GFR, Est., If >60 >60 [facility] Black ml/min/1.7 [facility] 3m2 Specimen Anatomical Collection Method Collection Time Receive d Time (Source) Location / / Volume Laterality 02/21/2018 7:12 AM 8 7:13 CDT AM CDT Narrative [facility] - 02/21/2018 7:47 AM CD T Performed at [facility] , [address] [place] [address] Lois Pham PA-C LAB_1 Performing Organization Address City/State/[place] [address] [address], [facility] (ABNORMAL) Hemogram with Plts (02/21/2018 7:12 AM CDT) athologist Signature WBC 10.0 4.0 - 11.0 [facility] RBC 3.29 (L) 4.0 - 5.2 [facility] Hemoglobin 10.7 (L) 12.0 - 16.0 [facility] g/dl [facility] HCT 32.2 (L) 36.0 - 46.0 [facility] MCV 97.9 80 - 100 [facility] MCH 32.5 26 - 34 pg [facility] MCHC 33.2 32 - 36 [facility] g/dl [facility] RDW 13.9 11.5 - 14.5 [facility] Platelets 186 150 - 450 [facility] MPV 10.3 9.4 - 12.4 [facility] Specimen Anatomical Collection Method Collection Time Receive d Time (Source) Location / / Volume Laterality 02/21/2018 7:12 AM 8 7:13 CDT AM CDT Narrative [facility] - 02/21/2018 7:26 AM CD T Performed at [facility] , [address] [place] [address] Lois Pham PA-C LAB_1 Performing Organization Address City/[facility]/ZIP Code Phon e Number [address] [address], [facility] Glucose, Whole Blood POC (02/20/2018 11:20 PM CDT) P athologist Signature Glucose, Whole 140 70 - 180 [facility] Blood mg/dl [facility]OSPITAL Comment: Point of Care Testing No Action Required Specimen Anatomical Collection Method Collection Time Receive d Time (Source) Location / / Volume Laterality 02/20/2018 11:20 02/20/2018 PM CDT 11:26 PM CDT Marky Gonzalez MD LAB_1 Performing Organization Address [facility] Phon e Number [address] [address], [place] [phone] Glucose, Whole Blood POC (02/20/2018 5:05 PM CDT) P athologist Signature Glucose, Whole 145 70 - 180 [facility] Blood mg/dl [facility]OSPITAL Comment: Point of Care Testing No Action Required Specimen Anatomical Collection Method Collection Time Receive d Time (Source) Location / / Volume Laterality 02/20/2018 5:05 PM 8 5:25 CDT PM CDT Marky Gonzalez MD LAB_1 Performing Organization Address City/[facility]/ZIP [facility] Phon e Number [address] [address], [place] Glucose, Whole Blood POC (02/20/2018 3:45 [...] Organization Address City/State/ZIP Code Phon e Number [address] [address], [place] XR C-Arm 0-30 Minutes (02/20/2018 2:05 PM CDT) Anatomical Region Laterality Modality Other Specimen (Source) Anatomical Location Collection Method / Collectio n Time Received Time / Laterality Volume Narrative 02/20/2018 2:06 PM CDT Fluoroscopy provided by a electroencephalogram technologist. Exact fluoroscopy time is documented in end of exam information in EPIC Marky Gonzalez MD RAD GD XR C-Arm 2.5-3 Hours (02/20/2018 12:45 PM CDT) Anatomical Region Laterality Modality Other Specimen (Source) Anatomical Location Collection Method / Collectio n Time Received Time / Laterality Volume Narrative 02/20/2018 12:45 PM CDT Fluoroscopy provided by a electroencephalogram technologist. Exact fluoroscopy time is documented in end of exam information in EPIC Marky Gonzalez MD RAD GD XR C-Arm 30-59 Minutes (02/20/2018 12:36 PM CDT) Anatomical Region Laterality Modality Other Specimen (Source) Anatomical Location Collection Method / Collectio n Time Received Time / Laterality Volume Narrative 02/20/2018 12:36 PM CDT Fluoroscopy provided by a electroencephalogram technologist. Exact fluoroscopy time is documented in [...] Organization Address City/State/ZIP Code Phon e Number [address] [address], [place] [phone] Glucose, Whole Blood POC (02/20/2018 6:25 AM CDT) athologist Signature Glucose, Whole 90 70 - 180 [facility] Blood mg/dl [facility]PITAL Specimen Anatomical Collection Method Collection Time Receive d Time (Source) Location / / Volume Laterality 02/20/2018 6:25 AM 8 6:34 CDT AM CDT Marky Gonzalez MD LAB_1 Performing Organization Address City/[facility]/ZIP [facility] Phon e Number [address] [address], [facility] [phone] ABO/RH(D) Retype (02/20/2018 6:22 AM CDT) athologist Signature ABO/RH(D) A NEGATIVE [facility] Specimen Anatomical Collection Method Collection Time Receive d Time (Source) Location / / Volume Laterality 02/20/2018 6:22 AM 8 6:25 CDT AM CDT Narrative [facility] - 02/20/2018 7:06 AM CD T Performed at [facility] , [address] [place] [address] Marky Gonzalez MD LAB_1 Performing Organization Address [facility] Phon e Number [address] [address], [facility] [phone] INR/Protime (PT/INR) (02/20/2018 6:08 AM CDT) athologist Signature Protime 13.0 12.0 - 14.5 [facility] INR 1.0 0.9 - 1.1 [facility] Specimen Anatomical Collection Method Collection Time Receive d Time (Source) Location / / Volume Laterality 02/20/2018 6:08 AM 8 6:22 CDT AM CDT Narrative [facility] - 02/20/2018 6:40 AM CD T Performed at [facility] , [address] [place] [address] Sirisha Maher APRN, SITE ADMINISTRATOR LAB_1 Performing Organization Address [facility]/ZIP [facility] Phon e Number [address] [address], [facility] Hemogram with Platelets (02/20/2018 6:08 AM CDT) athologist Signature WBC 6.7 4.0 - 11.0 [facility] k/ul [facility] RBC 4.13 4.0 - 5.2 [facility] M/ul [facility] Hemoglobin 13.5 12.0 - 16.0 [facility] g/dl [facility] HCT 39.8 36.0 - 46.0 [facility] MCV 96.4 80 - 100 fl [facility] MCH 32.7 26 - 34 pg [facility] MCHC 33.9 32 - 36 [facility] g/dl HOSPITAL RDW 13.8 11.5 - 14.5 [facility] Platelets 245 150 - 450 [facility] k/[facility] MPV 10.6 9.4 - 12.4 [facility] Specimen Anatomical Collection Method Collection Time Receive d Time (Source) Location / / Volume Laterality 02/20/2018 6:08 AM 8 6:22 CDT AM CDT Narrative [facility] - 02/20/2018 6:32 AM CD T Performed at [facility] , [address] [place] [address] Sirisha Maher APRN, SITE ADMINISTRATOR LAB_1 Performing Organization Address [facility]/State/[place] [address] [phone] (ABNORMAL) Basic Metabolic Panel (02/20/2018 6:08 AM CDT) athologist Signature Sodium 139 136 - 145 [facility] mmol/L [facility] Potassium 4.4 3.5 - 5.1 [facility] mmol/L [facility] Comment: Specimen Slightly Hemolyzed Hemolysis May Affect Result Chloride 109 98 - 109 mmol/L [facility] AL CO2 18 (L) 20 - 29 mmol/L [facility] L Anion Gap (calc.) 12 7 - 16 mmol/L [facility] Glucose 96 70 - 180 mg/dl [facility] L Calcium 9.4 8.4 - 10.2 mg/dl [facility] EHSAN BUN 14 7 - 26 mg/dl [facility] Creatinine 0.69 0.55 - 1.02 mg/dl [facility] HOS PITAL GFR, Estimated >60 >60 ml/min/1.73m2 [facility] GFR, Est., If Black >60 >60 ml/min/1.73m2 [facility] Specimen Anatomical Collection Method Collection Time Receive d Time (Source) Location / / Volume Laterality 02/20/2018 6:08 AM 8 6:22 CDT AM CDT Narrative [facility] - 02/20/2018 6:52 AM CD T Performed at [facility] , [address] [place] [address] Sirisha Maher APRN SITE ADMINISTRATOR LAB_1 Performing Organization Address City/[facility] Phon e Number [address] [address], [facility] aPTT (Activated Partial Thromboplastin Time) (02/20/2018 6:08 AM CDT) P athologist Signature PTT 26.8 24.0 - 37.0 [facility] Specimen Anatomical Collection Method Collection Time Receive d Time (Source) Location / / Volume Laterality 02/20/2018 6:08 AM 8 6:22 CDT AM CDT Narrative [facility] - 02/20/2018 6:40 AM CD T Performed at [facility] , [address] [place] [address] Sirisha Maher APRN, SITE ADMINISTRATOR LAB_1 Performing Organization Address City/[facility] Phon e Number [address] [address], [facility] [phone] ABO Rh & Antibody Screen (Type & Screen) (02/20/2018 6:07 AM CDT) Patholo gist Method Time Signature Crossmatch 02/23/2018 [facility] Expires [facility] ABO/RH(D) A NEGATIVE [facility] Antibody NEGATIVE [facility]OSPITAL Specimen Anatomical Collection Method Collection Time Receive d Time (Source) Location / / Volume Laterality 02/20/2018 6:07 AM 8 6:22 CDT AM CDT [facility] - 02/20/2018 7:10 AM CD T Performed at [facility] , [address] [place] [address] Sirisha Maher APRN, CNP LAB_1 Performing Organization Address City/State/ZIP Code Phon e Number [address] [address], [facility] [phone] EKG IP (02/20/2018 12:00 AM CDT) Specimen [...] Segura RN - 02/23/2018 9:57 AM CDT [facility] Plan of Care Note Assessment: Incisions C/D/I [...] Carbajal RN - 02/23/2018 7:43 AM CDT [facility] Plan of Care Note Assessment: pain Plan: [...] Rico RN - 02/22/2018 10:15 PM CDT [facility] Plan of Care Note Assessment: comfort level [...] Rico RN - 02/22/2018 4:00 PM CDT [facility]. MD Notified Note Name of MD notified: Ankit Time of MD notification: 1600 hours and 1 minute Reason: Pt.asking for valium now and current order for HS prn. [place]juan [place]id [place]. [id number]. Response: Valium one time dose now and HS prn. Shawn Butcher RN --- End of Report --- Plan of Care - Alec Gifford RN - 02/22/2018 1:57 PM CDT [facility] Plan of Care Note Assessment: pain Plan: [...] Lundberg RN - 02/22/2018 2:32 AM CDT [facility] Plan of Care Note Assessment: Pain Plan: [...] Orellana RN - 02/22/2018 12:33 AM CDT [facility] Plan of Care Note Assessment: Pain Plan: [...] Gifford RN - 02/21/2018 1:41 PM CDT [facility] Plan of Care Note Assessment: pain control [...] Lundberg RN - 02/21/2018 4:56 AM CDT [facility]. MD Notified Note Name of MD notified: Neurosurg Time of MD notification: 0400 hours and 55 minutes Reason: [id number]- Pt reporting oral/IV pain meds ineffective. Pt upset, req further intervention. Please advise. Thanks. Response: Discussed w/ neurosurg. To be addressed in AM and PRNs to continue to be administered as able. Anita Lundberg RN --- End of Report --- Plan of Care - Anita Lundberg RN - 02/21/2018 2:26 AM CDT [facility] Plan of Care Note Assessment: Pain Plan: [...] Control/Comfort Level unable to achieve outcome Comments: [facility] Plan of Care Note Assessment: posterior neck pain worst than anterior Plan: IHR, assessment, pain control Subjective: I thought that I was going to be on a dilaudid drip Objective: Pt angry that she was not on a HEEL SPLITTER pump, Dilaudid PO and IV given q3h, [...] PM CDT 50 mcg 25-50 mcg, Intravenous, A3PTLYRJ, Pain, Starting on Tue02/20/18 at 1451, Until [...] Alec Gifford RN)2052 (Given - Provider: Shawn Pattno RN) 0510 (Given - Provider: Heather Carbajal [...] HS
documented in this encounter Care Teams Building And Grounds Supervisor Relationship Specialty Start Date End Date Jose Holden MD PCP - General Otolaryngology 12/14/17 [place] [address] documented as of this encounter
--- OUTSIDE RECORDS SUMMARY | 2022-08-01 07:37 | XMS_ITS | Encounter Summary ---
:1965 Author Organization [facility] Address [address] [address] Care Team Providers Name Role Phone Jose Holden MD Primary Care Provider [phone] Reason for Visit Auth/Cert Specialty Diagnoses / [...] Expiration Date Visits Requ ested Visits Authorized [id number] 1 1 Encounter Details Date Type Department Care Team Description 02/20/2018 [facility] Pete Gonzalez MD [address] [place] [address] [place] [address] [phone] (Wo rk) Social History Tobacco Use Types [...] on filedocumented in this encounter Care Teams Camp Program Director Relationship Specialty Start Date End Date Jose Holden MD PCP - General Otolaryngology 12/14/[address] [place] [phone] (work) documented as of this encounter
--- OUTSIDE RECORDS SUMMARY | 2022-08-01 07:37 | XMS_ITS | Encounter Summary ---
:1965 [facility] Address [address], [place] [address] Care Team Providers Name Role Phone Jose Holden MD Primary Care Provider [phone] Reason for Visit Auth/Cert Specialty Diagnoses / [...] Expiration Date Visits Requ ested Visits Authorized [id number] 1 1 Encounter Details Date Type Department Care Team Description 02/20/2018 [facility] Pete Gonzalez MD [address] [place] [address] [place] [address] [phone] (Wo rk) Social History Tobacco Use Types [...] PM CDT Fluoroscopy provided by a radiology director. Exact fluoroscopy time is documented in end of exam information in EPIC Pete Gonzalez MD RAD GD documented in this encounter Visit Diagnoses Not on filedocumented in this encounter Care Teams Scratcher Relationship Specialty Start Date End Date Jose Holden MD PCP - General Otolaryngology 12/14/[address] [place], [place] [address] [address] documented as of this encounter
--- OUTSIDE RECORDS SUMMARY | 2022-08-01 07:37 | XMS_ITS | Encounter Summary ---
:1965 Author Organization [facility] Address [address] [address] Care Team Providers Name Role Phone Jose Holden MD Primary Care Provider [phone] Reason for Visit Reason Comments Refill Encounter Details Date Type Department Care Team Description 03/07/2018 [facility] Pete Gonzalez MD Refill Center [facility] [address] [facility] [place] [address] [address] [place] [address] [phone] Social History Tobacco Use Types Packs/Day Years [...] on filedocumented in this encounter Care Teams Printing Shop Supervisor Relationship Specialty Start Date End Date Jose Holden MD PCP - General Otolaryngology 12/14/[address] [place] [address] documented as of this encounter
--- OUTSIDE RECORDS SUMMARY | 2022-08-01 07:37 | XMS_ITS | Encounter Summary ---
:1965 Author [facility] Address [address] [place] [address] Care Team Providers Name Role Phone Jose Holden MD Primary Care Provider [phone] Reason for Visit Procedure/Equipment (Routine) - Incomplete Specialty Diagnoses / Procedures Referred By Contact Refer red To Contact Diagnoses S/P cervical spinal fusion Sirisha Rankin, Procedures XR Cervical Spine AP/Lat Upright GAS WORKER, CAREER COUNSELOR [address] [place] [address] Referral ID Status Reason Start Date Expiration Date Visits V isits Requested Authorized [id number] Incomplete 04/05/2018 07/05/2019 1 1 Encounter Details Date Type Department Care Team Description 06/14/2018 Imaging [facility] Sneha Maher, S/P cervi [facility] spinal [facility] Sirisha Celaya, APR N, CAREER COUNSELOR fusion Radiology [address] [place] [address] [place] [address] [phone] Social History Tobacco Use Types Packs/Day Years [...] PM CDT Narrative 06/14/2018 5:54 PM CDT [facility] XR CERVICAL SPINE AP/LAT UPRIGHT [...] note might be different from the original. [facility] XR CERVICAL SPINE AP/LAT UPRIGHT [...] soft tissue swelling. Remainder unchanged. Sirisha Maher GAS WORKER, CAREER COUNSELOR RAD GD documented in this encounter Visit Diagnoses Diagnosis S/P cervical spinal fusion Arthrodesis status documented in this encounter Care Teams Press Operator Apprentice Relationship Specialty Start Date End Date Jose Holden MD PCP - General Otolaryngology 12/14/17 [place] [address] documented as of this encounter
--- OUTSIDE RECORDS SUMMARY | 2022-08-01 07:37 | XMS_ITS | Encounter Summary ---
:1965 Author Organization [facility] Address [address] [address] Care Team Providers Name Role Phone Jose Holden MD Primary Care Provider [phone] Reason for Visit Reason Comments QUESTIONS, GENERAL Encounter Details Date Type Department Care Team Description 02/24/2018 Telephone [facility] Pete Gonzalez MD QUESTIONS, GENERAL [facility] [address] [facility] Neurosurgery/Ortho S [place], [place] [address] [address] [place] [address] [phone] Social History Tobacco Use Types Packs/Day Years [...] currently doing PT which was ordered through [facility] for her shoulder. She is worried [...] on filedocumented in this encounter Care Teams Director Of Construction Relationship Specialty Start Date End Date Jose Holden MD PCP - General Otolaryngology 12/14/17 [facility] [place] [address] documented as of this encounter
--- OUTSIDE RECORDS SUMMARY | 2022-08-01 07:37 | XMS_ITS | Encounter Summary ---
:1965 Author Organization [facility] Address [address], [place] [address] Care Team Providers Name Role Phone Jose Holden MD Primary Care Provider [phone] Reason for Visit Procedure/Equipment (Routine) - Incomplete Specialty Diagnoses / Procedures Referred By Contact Refer red To Contact Diagnoses Cervical spondylosis with radiculopathy (HRC) Sneha Maher, Sirisha Celaya, Procedures XR Cervical Spine AP/Lat Upright MANAGER MILITARY, SUPERIOR COURT JUSTICE [address] [place] [address] Referral ID Status Reason Start Date Expiration Date Visits V isits Requested Authorized [id number] Incomplete 02/21/2018 05/23/2019 1 1 Encounter Details Date Type Department Care Team Description 04/05/2018 [facility] Sneha Maher, Cervical spondylosis [facility] Sirisha Celaya, APR N, SUPERIOR COURT JUSTICE with radiculopathy Radiology [address] [place] [address] [phone] (Wo rk) Social History Tobacco Use Types [...] Anatomic alignment. Shoulder prosthesis. Sirisha Yomi Maher MANAGER MILITARY, SUPERIOR COURT JUSTICE RAD GD documented in this encounter Visit Diagnoses Diagnosis Cervical spondylosis with radiculopathy (HRC) Cervical spondylosis with myelopathy documented in this encounter Care Teams Sergeant Missile Crewman Relationship Specialty Start Date End Date Jose Holden MD PCP - General Otolaryngology 12/14/[address] [place], [place] [address] [address] documented as of this encounter
--- OUTSIDE RECORDS SUMMARY | 2022-08-01 07:37 | XMS_ITS | Encounter Summary ---
:1965 Author Organization [facility] Address [address], [place] [address] Care Team Providers Name Role Phone Jose Holden MD Primary Care Provider [phone] Reason for Visit Reason Comments Medication Check In Encounter Details Date Type Department Care Team Description 03/07/2018 Telephone [facility] Pete Gonzalez MD Medication Check In [facility] [address] [facility] Neuro[facility]/Ortho [place], [place] [address] [address] [place] [address] [phone] Social History Tobacco Use Types Packs/Day Years [...] 12:25 PM CDT Pharmacist Mandy calling from [email or web address]. She would like to inform provider [...] on filedocumented in this encounter Care Teams Signal Repairer Relationship Specialty Start Date End Date Jose Holden MD PCP - General Otolaryngology 12/14/17 [place] [address] documented as of this encounter
--- OUTSIDE RECORDS SUMMARY | 2022-08-01 07:37 | XMS_ITS | Encounter Summary ---
:1965 Author Organization [facility] Address [address] [address] Care Team Providers Name Role Phone Jose Holden MD Primary Care Provider [phone] Reason for Referral Procedure/Equipment (Routine) - Incomplete Specialty Diagnoses / Procedures Referred By Contact Refer red To Contact Diagnoses S/P cervical spinal fusion Sirisha Rankin, Procedures XR Cervical Spine AP/Lat Upright KALPANA SHER [address] [place] [address] Referral ID Status Reason Start Date Expiration Date Visits V isits Requested Authorized [id number] Incomplete 04/05/2018 07/05/2019 1 1 Reason for Visit Reason Comments POST-OP,EXAM Encounter Details Date Type Department Care Team Description 04/05/2018 Office Visit [facility] Sneha Maher, S/Camelia cervic al spinal [facility] RODRICK Newberry CNP fusion (Primary Dx) Neurosurgery/Ortho [address] Spine [place], [place] [address] [address] [place] [address] [phone] Social History Tobacco Use Types Packs/Day Years [...] your understanding. Please call the Neurosurgery Center [phone] with any further questions or concerns or if your symptoms worsen. Thank you for coming to see us today. We are your partner. documented in this encounter Progress Notes Sirisha Rankin, ACCOUNT MANAGEMENT ASSISTANT, GAS METER PROVER - 04/05/2018 1:00 PM CDT POSTOPERATIVE DIAGNOSES: [...] a divorce and plans to move to [place] in the next several months. She would [...] elbow(tricep) R:5/5 L: 5/5 C8 - Finger flexors(developer support engineer) R:5/5 L: 5/5 T1 - Finger abduction/adduction [...] PM CDT Narrative 06/14/2018 5:54 PM CDT [facility] XR CERVICAL SPINE AP/LAT UPRIGHT [...] soft tissue swelling. Remainder unchanged. Sirisha Maher ACCOUNT MANAGEMENT ASSISTANT, GAS METER PROVER RAD GD documented in this encounter Visit Diagnoses Diagnosis S/P cervical spinal fusion - Primary Arthrodesis status S/P cervical spinal fusion Arthrodesis status documented in this encounter Care Teams Electrical Software Engineer Relationship Specialty Start Date End Date Jose Holden MD PCP - General Otolaryngology 12/14/17 [place] [address] documented as of this encounter
--- OUTSIDE RECORDS SUMMARY | 2022-08-01 07:37 | XMS_ITS | Encounter Summary ---
:1965 Author [facility] Address [address] [place] [address] Care Team Providers Name Role Phone Jose Holden MD Primary Care Provider [phone] Encounter Details Date Type Department Care Team [...] on filedocumented in this encounter Care Teams Casing Material Weigher Relationship Specialty Start Date End Date Jose Holden MD PCP - General Otolaryngology 12/14/17 [address] [place] [address] documented as of this encounter
--- OUTSIDE RECORDS SUMMARY | 2022-08-01 07:37 | XMS_ITS | Encounter Summary ---
:1965 Author Organization [facility] Address [address] [place] [address] Care Team Providers Name Role Phone Jose Holden MD Primary Care Provider [phone] Reason for Visit Reason Comments Medication Questions FYI Encounter Details Date Type Department Care Team Description 03/01/2018 Telephone [facility] Pete Gonzalez MD Medication Questions; [facility] [address] [place] [address] FY I Neurosurgery/Ortho S [place] [address] [place] [address] [place] [address] [phone] (Wo rk) Social History Tobacco Use Types [...] on filedocumented in this encounter Care Teams Inspector Integrated Circuits Relationship Specialty Start Date End Date Jose Holden MD PCP - General Otolaryngology 12/14/17 [facility] [place] [address] documented as of this encounter
--- OUTSIDE RECORDS SUMMARY | 2022-08-01 07:37 | XMS_ITS | Encounter Summary ---
:1965 Author [facility] Address [address] [place] [address] Care Team Providers Name Role Phone Jose Holden MD Primary Care Provider [phone] Encounter Details Date Type Department Care Team [...] on filedocumented in this encounter Care Teams Concrete Layer Relationship Specialty Start Date End Date Jose Holden MD PCP - General Otolaryngology 12/14/17 [place] [address] documented as of this encounter
--- OUTSIDE RECORDS SUMMARY | 2022-08-01 07:37 | XMS_ITS | Encounter Summary ---
:1965 Author Organization [facility] Address [address] [place] [address] Care Team Providers Name Role Phone Jose Holden MD Primary Care Provider [phone] Reason for Referral Procedure/Equipment (Routine) - Closed Specialty Diagnoses / Procedures Referred By Contact Refer red To Contact Diagnoses Neck pain Pete Gonzalez MD [address] [place] [address] Referral ID Status Reason Start Date Expiration Date Visits Requ ested Visits Authorized [id number] Closed 06/14/2018 12/11/2018 1 1 Scheduling Instructions [...] [facility] Spine S [address] [place] [address] [place] [id number] Social History Tobacco Use Types Packs/Day Years [...] your understanding. Please call the Neurosurgery Center [phone] with any further questions or concerns or [...] Cervicalgia documented in this encounter Care Teams Business Management Specialist Relationship Specialty Start Date End Date Jose Holden MD PCP - General Otolaryngology 12/14/17 [place] [address] documented as of this encounter
--- OUTSIDE RECORDS SUMMARY | 2022-08-01 07:37 | XMS_ITS | Encounter Summary ---
:1965 Author Organization [facility] Address [address] [address] Care Team Providers Name Role Phone Jose Holden MD Primary Care Provider [phone] Encounter Details Date Type Department Care Team [...] on filedocumented in this encounter Care Teams Charge Lpn Relationship Specialty Start Date End Date Jose Holden MD PCP - General Otolaryngology 12/14/17 [place] [address] documented as of this encounter
--- OUTSIDE RECORDS SUMMARY | 2022-08-01 07:37 | XMS_ITS | Encounter Summary ---
:1965 Author Organization [facility] Address [address] [place] [address] Care Team Providers Name Role Phone Jose Holden MD Primary Care Provider [phone] Encounter Details Date Type Department Care Team Description 06/20/2018 [facility]ent for [facility] Procedure/Treat [facility] Tony Alvarado MD FOR TX/PROCEDURE ent Pain Management [address] [place] [phone] Social History Tobacco Use Types Packs/Day Years [...] on filedocumented in this encounter Care Teams Market Development Trainer Relationship Specialty Start Date End Date Jose Holden MD PCP - General Otolaryngology 12/14/[address] [place], [place] [address] documented as of this encounter
--- OUTSIDE RECORDS SUMMARY | 2022-08-01 07:38 | XMS_ITS | Encounter Summary ---
:1965 Author Organization [facility] Address [address] [place] [address] Care Team Providers Name Role Phone Unassigned, Provider Primary Care Provider Unavailable Encounter Details Date Type Department Care Team Description 01/17/2006 [facility] Curtis Antoine Op Report-Archive [address] StreetBritton García [place] [address] [address] [phone] [place] [address] Social History Tobacco Use Types Packs/Day Years Used Date Smoking Tobacco: Never Assessed Sex Assigned at Date Recorded Not on file documented as of this encounter Plan of Treatment Not on filedocumented as of this encounter Visit Diagnoses Not on filedocumented in this encounter Care Teams Tonsorial Artist Relationship Specialty Start Date End Date Unassigned, Provider PCP - General 08/05/03 12/13/17 [address] [place] [address] documented as of this encounter
--- OUTSIDE RECORDS SUMMARY | 2022-08-01 07:38 | XMS_ITS | Encounter Summary ---
:1965 Author Organization [facility] Address [address] [place] [address] Care Team Providers Name Role Phone Jose Holden MD Primary Care Provider [phone] Reason for Visit Reason Comments CONSULT POPC-dos 02-20 w/Dr Gonzalez Encounter Details Date Type Department Care Team Description 02/13/2018 Office Visit Stew Mcghee of [facility] Raul Stover MD cervical region Management [address] without myelopathy or [address] [place], [place] radiculopathy ([place] [address] Dx) [phone] Social History Tobacco Use Types Packs/Day Years [...] some medicines that are opioids: ??? Hydrocodone ([place], Vicodin, Lortab) ??? Oxycodone (OxyContin, Percocet) ??? [...] before you use any other medicines, including wegu-[id number]-[id number] medicines. Make sure my care team knows [...] team or apharmacist. You can also visit [employer] or [employer] and search medicine disposalto learn about drug disposal. You may also call the Drug Enforcement Administration (BARBY) Office of Diversion Control's Registration Call Center at to find an authorized insurance collector in your community. ??? If your [...] Content Version: 10.9 Custom: HP/PN 6-16 ?? [id number] [employer], [facility]. Stew Covarrubias MD documented in [...] experiences A lot of 'bad' surgeries in [place] Past Medical History: Diagnosis Date ??? Acne ??? Allergy ??? Anxiety disorder (HRC) ??? Arthritis ??? Asthma (HRC) ??? Bipolar 1 disorder (HRC) ??? COPD (chronic obstructive pulmonary disease) (HRC) ??? Depression (HRC) ??? Ear infection ??? Infection of the inner ear, left ? ? Nausea & vomiting ??? Sinusitis No past surgical history on file. LABORATORY ADMINISTRATIVE DIRECTOR Review: Allergies: Allergies Allergen Reactions ??? Adhesive [...] surgery Recommendations for opioids: If using a OPERATOR COATING FURNACE: No oral opioids Start a OPERATOR COATING FURNACE pump with Dilaudid continuous IV infusion at a basal rate of 0.1 mg/hr with OPERATOR COATING FURNACE boluses of 0.2-0.4 mg every 10 minutes. If not using a OPERATOR COATING FURNACE: Start dilaudid 2-4mg q3h prn (alternatively can [...] myelopathy documented in this encounter Care Teams Structures Assembler Relationship Specialty Start Date End Date Jose Holden MD PCP - General Otolaryngology 12/14/17 [facility] [place] [address] documented as of this encounter
--- OUTSIDE RECORDS SUMMARY | 2022-08-01 07:38 | XMS_ITS | Encounter Summary ---
:1965 Author Organization [facility] Address [address], [place] [address] Care Team Providers Name Role Phone Jose Holden MD Primary Care Provider [phone] Reason for Visit Reason Comments QUESTIONS, GENERAL Encounter Details Date Type Department Care Team Description 01/25/2018 Telephone [facility] Pete Gonzalez MD QUESTIONS, GENERAL [facility] [address] [facility] Neurosurgery/Ortho S [place], [place] [address] [address] [place] [address] [phone] Social History Tobacco Use Types Packs/Day Years [...] she should receive a call from the casino banker in the next 1-3 weeks to discuss her surgery/date. Patient stated understanding and will call with any updates or changes. Chava Simon RN 01/25/2018, 11:04 AM DECK SUPERVISOR Gi De La Vega 01/25/2018 10:56 AM CST Patient calling to speak to RN. Regarding her MRI scan. DECK SUPERVISOR documented in this encounter Plan of Treatment Not on filedocumented as of this encounter Visit Diagnoses Not on filedocumented in this encounter Care Teams Railroad Car Inspector Relationship Specialty Start Date End Date Jose Holden MD PCP - General Otolaryngology 12/14/[address] [place] [address] documented as of this encounter
--- OUTSIDE RECORDS SUMMARY | 2022-08-01 07:38 | XMS_ITS | Encounter Summary ---
:1965 Author Organization [facility] Address [address], [place] [address] Care Team Providers Name Role Phone Jose Holden MD Primary Care Provider [phone] Reason for Visit Reason Comments QUESTIONS, GENERAL Encounter Details Date Type Department Care Team Description 01/19/2018 Telephone [facility] Pete Gonzalez MD QUESTIONS, GENERAL [facility] [address] [facility] Neurosurgery/Ortho S [place], [place] [address] [address] [place] [address] [phone] Social History Tobacco Use Types Packs/Day Years [...] of MRI was received via mail from [facility]. CD given to RN MUD MOLDER Chava Simon RN - 01/19/2018 12:00 PM CST Patient states she will bring the MRI CD hopefully tomorrow 01/20/2018. Chava Simon RN 01/19/2018, 12:01 PM MUD MOLDER Gi De La Vega - 01/19/2018 11:47 AM CST Patient calling to speak to RN. Would like to speak to him regarding an MRI CD? Please call her at [phone]. MUD MOLDER documented in this encounter Plan of Treatment Not on filedocumented as of this encounter Visit Diagnoses Not on filedocumented in this encounter Care Teams Pocket Machine Operator Relationship Specialty Start Date End Date Jose Holden MD PCP - General Otolaryngology 12/14/17 [facility] [place] [address] documented as of this encounter
--- OUTSIDE RECORDS SUMMARY | 2022-08-01 07:38 | XMS_ITS | Encounter Summary ---
:1965 Author Organization [facility] Address [address], [place] [address] Care Team Providers Name Role Phone Unassigned, Provider Primary Care Provider Unavailable Reason for Referral Procedure/Equipment (Routine) - Incomplete Specialty Diagnoses / Procedures Referred By Contact Refer red To Contact Diagnoses Screening procedure Pseudarthrosis after fusion or arthrodesis Pete Gonzalez MD Procedures FL Video Swallow Study [address] [place] [address] Referral ID Status Reason Start Date Expiration Date Visits V isits Requested Authorized [id number] Incomplete 11/29/2017 02/28/2019 1 1 herapies (Routine) - Closed Specialty Diagnoses / Procedures Referred By Contact Refer herson To Contact Diagnoses Pseudarthrosis after fusion or arthrodesis Screening procedure Pete Gonzalez MD [address] [place] [address] Referral ID Status Reason Start Date Expiration Date Visits Requ ested Visits Authorized [id number] Closed 11/29/2017 01/28/2018 1 1 Scheduling Instructions Your provider has recommended an appoint ment with a [facility]rap[facility]. Please stop at the clinic check out desk for as sistance with scheduling or if you prefer to call for your appointment you may call [facility] at [phone]. We suggest you call your [facility] insurance company about your coverage and benefits for this appointment. ER AND PACKER Consult/Transfer Care (Routine) - Closed Specialty Diagnoses / Procedures Referred By Contact Refer red To Contact Diagnoses Pseudarthrosis after fusion or arthrodesis Screening procedure Pete Gonzalez MD [address] [place] [address] Referral ID Status Reason Start Date Expiration Date Visits Requ ested Visits Authorized [id number] Closed 11/29/2017 02/28/2019 1 1 Scheduling Instructions Your provider has recommended an appoint ment with [facility] Ear, Nose and Throat. You may call [phone], optio n [phone], to schedule your appointment. If you prefer, a bill of materials clerk will contact you heena hebert the next 3 business days to assist you in setting up this appointment. We suggest you call your health insurance company about your coverage and benefits for this appo intment. ER AND PACKER Procedure/Equipment (Routine) - Incomplete Specialty Diagnoses / Procedures Referred By Contact Refer red To Contact Diagnoses Screening procedure Pseudarthrosis after fusion or arthrodesis Pete Gonzalez MD Procedures XR Cervical Spine W Flex And Ext [address] [place] [address] Referral ID Status Reason Start Date Expiration Date Visits V isits Requested Authorized [id number] Incomplete 10/31/2017 01/30/2019 1 1 ER AND PACKER Reason for Visit Reason Comments SECOND OPINION Consult/Transfer Care (Routine) - Closed Specialty Diagnoses / Procedures Referred By Contact Refer red To Contact Neurosurgery Ihsan Brooke MD [facility] [address] [place] [address] [place] [address]. [place] [address] Phone: Fax: Referral ID Status Reason Start Date Expiration Date Visits Requ ested Visits Authorized [id number] Closed 09/26/2017 12/26/2018 1 1 Encounter Details Date Type Department Care Team Description 11/29/2017 Office Visit [facility] Pete Gonzalez, Pseudarthr osis after fusion or arthrodesis (Primary Dx); [facility] Cervical spondylosis with radiculopathy; Neurosurgery/Ortho [address] Bilater al occipital neuralgia; [address]ine [address] Screening procedure [address] [place] [address] [place] [address] [phone] Social History Tobacco Use Types Packs/Day Years Used Date Smoking Tobacco: Every Day Cigarettes 0.5 Smokeless Tobacco: Never Alcohol Use Standard Drinks/Week Comments No 0 (1 standard drink = 0.6 oz pure alcoho l) Sex Assigned at Date Recorded Not on file documented as of this encounter Last Filed Vital Signs Vital Sign Reading Time Taken Comments Blood Pressure 126/77 11/29/2017 10:21 AM CRATER AND PACKER Pulse 77 11/29/2017 10:21 AM CRATER AND PACKER Temperature - - Respiratory Rate - - Oxygen Saturation - - Inhaled Oxygen Concentration - - Weight 75.4 kg (166 lb 3.2 oz) 11/29/2017 10:21 AM CRATER AND PACKER Height 152.4 cm (5') 11/29/2017 10:21 AM CRATER AND PACKER Body Mass Index 32.46 11/29/2017 10:21 AM CRATER AND PACKER documented in this encounter Patient Instructions Patient InstructionsChava Simon RN - 11/29/2017 10:00 AM CST [facility] Patient Instructions Tests: You will be scheduled [...] your understanding. Please call the Neurosurgery Center [phone] with any further questions or concerns or if your symptoms worsen. Thank you for coming to see us today. We are your partner. ER AND PACKER documented in this encounter Progress Notes Lois [...] after C3-T1 posterior cervical fusion done at [facility] in [place] multiple years ago. The T1 screws are [...] on fentanyl, ms contin and oxycontin in [place]. PSURGHX:No past surgical history on file. PMEDHX:No past medical history on file. MEDICATIONS: Outpatient Prescriptions as of 11/29/2017: benzonatate (TESSALON) 100 MG capsule Take 100 mg by mouth. Note (11/29/2017): Received from: [facility] Received Sig: Take 1 capsule by mouth 3 times daily if needed for Cough. Disp: Rfl: budesonide-formoterol (SYMBICORT) 160-4.5 MCG/ACT inhaler Inhale 2 Puffs. Note (11/29/2017): Received from: [facility] Received Sig: INHALE 2 PUFFS BY [...] Tab by mouth. Note (11/29/2017): Received from: [facility] Received Sig: Take 1 tablet bymouth [...] No narrative on file ROS: Reviewed per [facility] Neurosurgery New Patient Health Packet History was [...] 4/5 C7 Triceps: 5/5 4/5 C8 Finger flexors/lump machine operator: 5/5 5/5 T1 Intrinsics: 5/5 5/5 Sensation: Intact with light touch bue/ble. Skin: Warm to touch to bilateral upper/lower extremities. No skin rashes or lesions noted RADIOLOGY: Personally reviewed CT scans from OSH as well as XR from here. No formal report for either available. Shows previous C3-T1 posterior fusion, appears fused C3-C6, screws at T1 appear lose. [id number] through the facet joint. ASSESSMENT: 52 year old female s/p multiple previous cervical spine surgeries including C3-T1 posterior fusion (done in [place] approx 6 [...] of the chart to: Ihsan Brooke MD [address] [id number] Lois Pham PA-C, 11/29/2017, 12:34 PM ER AND PACKER documented in this encounter Plan of Treatment Scheduled Referrals Name Type Priority Associated Diagnoses Order S chedule Otolaryngology Consult Referral Routine Pseudarthrosis aft er Ordered: Adult/Peds fusion or arthro desis 11/29/2017 Screening procedure Speech Therapy Referral Routine Pseudarthrosis after Order ed: fusion or arthro desis 11/29/2017 Screening procedure documented as of this encounter Results FL Video Swallow Study (12/26/2017 1:03 PM CRATER AND PACKER) Anatomical Region Laterality Modality Neck, Chest Radio Fluoroscopy Specimen (Source) Anatomical Collection Method Collection Time Re ceived Time Location / / Volume Laterality 12/26/2017 1:03 PM CRATER AND PACKER Narrative 12/26/2017 6:00 PM CRATER AND PACKER GA VIDEO SWALLOW STUDY 12/26/2017 1:03 PM INDICATION: [...] note might be different from the original. GA VIDEO SWALLOW STUDY 12/26/2017 1:03 PM INDICATION: [...] W Flex And Ext (11/29/2017 9:54 AM CRATER AND PACKER) Anatomical Region Laterality Modality Spine, C-Spine, Neck Computed Radiograph y Specimen (Source) Anatomical Collection Method Collection Time Re ceived Time Location / / Volume Laterality 11/29/2017 9:54 AM CRATER AND PACKER Narrative 11/29/2017 10:59 AM CRATER AND PACKER XR CERVICAL SPINE W FLEX AND EXT [...] status documented in this encounter Care Teams Audio Video Repairer Relationship Specialty Start Date End Date Unassigned, Provider PCP - General 08/05/03 12/13/[address] [place] [address] documented as of this encounter
--- OUTSIDE RECORDS SUMMARY | 2022-08-01 07:38 | XMS_ITS | Encounter Summary ---
:1965 Author Organization [facility] Address [address], [place] [address] Care Team Providers Name Role Phone Jose Holden MD Primary Care Provider Reason for Visit Reason Comments QUESTIONS, GENERAL Encounter Details Date Type Department Care Team Description 02/03/2018 Telephone [facility] Pete Gonzalez MD QUESTIONS, GENERAL Neuroscience Center [address] [facility] Neurosurgery/Ortho [place], [place] [address] [address] [place] [address] [phone] Social History Tobacco Use Types Packs/Day Years [...] PA. Chava Simon RN 02/03/2018, 12:01 PM LING EQUIPMENT SALES REPRESENTATIVE Gi De La Vega - 02/03/2018 11:55 AM CST Patient calling to speak to Jamir. Would like to know about her surgery. Plum Packer did let patient know that Ana Rosa rehabilitation aide/scheduler is out of the office. She did request to speak to Jamir. Please call her at listed number. Thanks LING EQUIPMENT SALES REPRESENTATIVE documented in this encounter Plan of Treatment Not on filedocumented as of this encounter Visit Diagnoses Not on filedocumented in this encounter Care Teams School Manager Relationship Specialty Start Date End Date Jose Holden MD PCP - General Otolaryngology 12/14/[address] [place], [place] [address] [address] documented as of this encounter
--- OUTSIDE RECORDS SUMMARY | 2022-08-01 07:38 | XMS_ITS | Encounter Summary ---
:1965 Author Organization [facility] Address [address] [place] [address] Care Team Providers Name Role Phone Jose Holden MD Primary Care Provider [phone] Encounter Details Date Type Department Care Team Description 01/20/2018 Telephone [facility] Neuroscience Chava Simon RN Center Neurosurgery/ Ortho Spine [address] [place] [address] Social History Tobacco Use Types Packs/Day [...] placed. Chava Simon RN 01/25/2018, 8:24 AM RCYCLE BUILDER Chava Simon RN - 01/24/2018 12:[address] Gonzalez reviewed imaging and is waiting until appropriate time to place case request. Chava Simon RN 01/24/2018, 12:45 PM RCYCLE BUILDER Gi De La Vega - 01/20/2018 11:21 AM CST Patient called to speak to RN. She has a new phone number. Please call her at [phone]. thanks RCYCLE BUILDER Chava Simon RN - 01/20/2018 11:15 AM CST Images from the original note were not included. Team please have Dr. Gonzalez review imaging which is now on PACs and place case request. Chava Simon RN 01/20/2018, 11:18 AM RCYCLE BUILDER documented in this encounter Plan of Treatment Not on filedocumented as of this encounter Visit Diagnoses Not on filedocumented in this encounter Care Teams Record Pressman Relationship Specialty Start Date End Date Jose Holden MD PCP - General Otolaryngology 12/14/[address] [place], [place] [address] [address] documented as of this encounter
--- OUTSIDE RECORDS SUMMARY | 2022-08-01 07:38 | XMS_ITS | Encounter Summary ---
:1965 [facility] Address [address] [place] [address] Care Team Providers Name Role Phone Jose Holden MD Primary Care Provider [phone] Encounter Details Date Type Department Care Team Description 02/13/2018 Orders Only External to [facility] External, [place] [address] Social History Tobacco Use Types Packs/Day Years [...] on filedocumented in this encounter Care Teams Tribal Judge Relationship Specialty Start Date End Date Jose Holden MD PCP - General Otolaryngology 12/14/17 [place] [address] documented as of this encounter
--- OUTSIDE RECORDS SUMMARY | 2022-08-01 07:38 | XMS_ITS | Encounter Summary ---
:1965 Author Organization [facility] Address [address] [place] [address] Care Team Providers Name Role Phone Jose Holden MD Primary Care Provider [phone] Encounter Details Date Type Department Care Team Description 02/13/2018 Orders Only External to [facility] External, [place] [address] Social History Tobacco Use Types Packs/Day Years [...] on filedocumented in this encounter Care Teams Range Examiner Relationship Specialty Start Date End Date Jose Holden MD PCP - General Otolaryngology 12/14/17 [place] [address] documented as of this encounter
--- OUTSIDE RECORDS SUMMARY | 2022-08-01 07:38 | XMS_ITS | Encounter Summary ---
:1965 Author Organization [facility] Address [address] [address] Care Team Providers Name Role Phone Jose Holden MD Primary Care Provider [phone] Reason for Visit Reason Comments Consult, New Patient vocal cord analysis Consult/Transfer Care (Routine) - Closed Specialty Diagnoses / Procedures Referred By Contact Refer red To Contact Diagnoses Pseudarthrosis after fusion or arthrodesis Screening procedure Pete Gonzalez MD [address] [place] [address] Referral ID Status Reason Start Date Expiration Date Visits Requ ested Visits Authorized [id number] Closed 11/29/2017 02/28/2019 1 1 Encounter Details Date Type Department Care Team Description 12/26/2017 Office Visit Specialty Center Jose Holden Cer vical vertebral 401 Otolaryngology MD Deyvi fusion (Primary Dx) [address] [place] [address] [place], [place] [phone] [address] Social History Tobacco Use Types Packs/Day Years [...] (166 lb 12.8 oz) 12/26/2017 2:06 PM MOVEMENT ASSEMBLER Height - - Body Mass Index 32.58 11/29/2017 10:21 AM MOVEMENT ASSEMBLER documented in this encounter Progress Notes Jose Holden MD - 12/26/2017 3:00 PM CST HPI: Angie Mosquera is a 52 y.o. old female who presents for vocal cord evaluation prior to cervical spine surgery. Patient has significant history of cervical spine surgery having approximate four procedures, three in [place] one here in the [place] area last year. After her last surgery, developed significant hoarseness, loss of voice for approximately three months. Cervical approach with her last surgery was left-hand side. States that she was evaluated by a director blood bank and there were plans for a procedure [...] times per day. 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 Not currently working. [...] software and may contain unintended word substitutions. MENT ASSEMBLER documented in this encounter Plan of Treatment Not on filedocumented as of this encounter Visit Diagnoses Diagnosis Cervical vertebral fusion - Primary Klippel-Feil syndrome documented in this encounter Care Teams Collateral Clerk Relationship Specialty Start Date End Date Jose Holden MD PCP - General Otolaryngology 12/14/17 [facility] [place] [address] documented as of this encounter
--- OUTSIDE RECORDS SUMMARY | 2022-08-01 07:38 | XMS_ITS | Encounter Summary ---
:1965 Author Organization [facility] Address [address] [place] [address] Care Team Providers Name Role Phone Unassigned, Provider Primary Care Provider Unavailable Encounter Details Date Type Department Care Team Description 11/04/2005 [facility] Curtis Antoine Op Report-Archive [address] StreetBritton García [place] [address] [facility] [phone] [place] [address] Social History Tobacco Use Types Packs/Day Years Used Date Smoking Tobacco: Never Assessed Sex Assigned at Date Recorded Not on file documented as of this encounter Plan of Treatment Not on filedocumented as of this encounter Visit Diagnoses Not on filedocumented in this encounter Care Teams Barback Relationship Specialty Start Date End Date Unassigned, Provider PCP - General 08/05/03 12/13/17 [address] [place] [address] documented as of this encounter
--- OUTSIDE RECORDS SUMMARY | 2022-08-01 07:38 | XMS_ITS | Encounter Summary ---
:1965 Author [facility] Address [address], [place] [address] Care Team Providers Name Role Phone Jose Holden MD Primary Care Provider [phone] Encounter Details Date Type Department Care Team Description 02/13/2018 Orders Only External to Jose Holden MD [address] [place], [place] [address] (Wo rk) Social History [...] on filedocumented in this encounter Care Teams Industrial Hygiene Engineer Relationship Specialty Start Date End Date Jose Holden MD PCP - General Otolaryngology 12/14/17 [address] [place] [address] documented as of this encounter
--- OUTSIDE RECORDS SUMMARY | 2022-08-01 07:38 | XMS_ITS | Encounter Summary ---
:1965 Author Organization [facility] Address [address] [place] [address] Care Team Providers Name Role Phone Unassigned, Provider Primary Care Provider Unavailable Encounter Details Date Type Department Care Team Description 10/28/2005 [facility] Curtis Antoine Op Report-Archive [address] StreetBritton García [place] [address] [facility] [phone] [place] [address] Social History Tobacco Use Types Packs/Day Years Used Date Smoking Tobacco: Never Assessed Sex Assigned at Date Recorded Not on file documented as of this encounter Plan of Treatment Not on filedocumented as of this encounter Visit Diagnoses Not on filedocumented in this encounter Care Teams Gasoline Truck Crane Operator Relationship Specialty Start Date End Date Unassigned, Provider PCP - General 08/05/03 12/13/17 [address] [place] [address] documented as of this encounter
--- OUTSIDE RECORDS SUMMARY | 2022-08-01 07:38 | XMS_ITS | Encounter Summary ---
:1965 Author Organization [facility] Address [address] [address] Care Team Providers Name Role Phone Jose Holden MD Primary Care Provider [phone] Encounter Details Date Type Department Care Team Description 12/02/2017 Orders Only External to Pete Gonzalez MD [address] [place], [place] [address] (Wo rk) Social History Tobacco Use Types [...] 12/02/2017 12:00 AM Resul ts for this STRETCH BOX TENDER procedure are i n the results section. documented in this encounter Results MRI SPINE--SCAN (12/02/2017 12:00 AM STRETCH BOX TENDER) Anatomical Region Laterality Modality Other Specimen (Source) Anatomical Location Collection Method / Collectio n Time Received Time / Laterality Volume 12/02/2017 Narrative This result has an attachment that is no t available. Pete Gonzalez MD DUMMY/OTHER/AR documented in this encounter Visit Diagnoses Not on filedocumented in this encounter Care Teams Electrical Accessories I Assembler Relationship Specialty Start Date End Date Jose Holden MD PCP - General Otolaryngology 12/14/17 [address] [place], [place] [address] documented as of this encounter
--- OUTSIDE RECORDS SUMMARY | 2022-08-01 07:38 | XMS_ITS | Encounter Summary ---
:1965 Author [facility] Address [address] [address] Care Team Providers Name Role Phone Jose Holden MD Primary Care Provider [phone] Reason for Visit Therapies (Routine) - Closed Specialty Diagnoses / Procedures Referred By Contact Refer red To Contact Diagnoses Pseudarthrosis after fusion or arthrodesis Screening procedure Pete Gonzalez MD [address] [place] [address] Referral ID Status Reason Start Date Expiration Date Visits Requ ested Visits Authorized [id number] Closed 11/29/2017 01/28/2018 1 1 Encounter Details Date Type Department Care Team Description 12/26/2017 Office Visit Pete Orona MD [address] [place] [address] Pharyngeal dysphagia [facility] Kaykay Wyman FIREWOOD CUTTER [address] [place], [place] [id number] (Primary Dx) Speech Therapy [address] [place] [address]. [id number], [place] [id number] Social History Tobacco Use Types Packs/Day Years Used Date Smoking Tobacco: Every Day Cigarettes 0.5 Smokeless Tobacco: Never Alcohol Use Standard Drinks/Week Comments No 0 (1 standard drink = 0.6 oz pure alcoho l) Sex Assigned at Date Recorded Not on file documented as of this encounter Patient Instructions Patient InstructionsKaykay Wyman SLP - 12/26/2017 12:30 PM GAS OR WATER METER INSTALLER You had a swallow test today. I [...] sensation of food catching. Kaykay Monroy MA CCC/FIREWOOD CUTTER Speech-Language Pathologist M-F Office: [phone] OR WATER METER INSTALLER documented in this encounter Progress Notes Kaykay Wyman, FIREWOOD CUTTER - 12/26/2017 12:30 PM CST SPEECH LANGUAGE PATHOLOGY MODIFIED BARIUM SWALLOW INITIAL EVALUATION ASSESSMENT Patient is referred for dysphagia evaluation as part of surgical consultation related to past ACDF 1year ago in [place] with consideration of revision ACDF surgery in [...] food sticking, especially on textures that are loop drier operator (meats, breads, etc). I would [...] goals established as no further intervention from FIREWOOD CUTTER service is warranted at this time. VISIT [...] Total Treatment Time: 45 minutes Kaykay Monroy CCC-FIREWOOD CUTTER 12/26/2017 documented in this encounter Plan of Treatment Scheduled Referrals Name Type Priority Associated Diagnoses Order S chedule Speech Therapy Referral Routine Pseudarthrosis after fusio n or Ordered: 11/29/2017 arthrodesis Screening procedure documented as of this encounter Visit Diagnoses Diagnosis Pharyngeal dysphagia - Primary Dysphagia, pharyngeal phase documented in this encounter Care Teams Buyer Renter Relationship Specialty Start Date End Date Jose Holden MD PCP - General Otolaryngology 12/14/17 [place] [address] documented as of this encounter
--- OUTSIDE RECORDS SUMMARY | 2022-08-01 07:38 | XMS_ITS | Encounter Summary ---
:1965 Author Organization [facility] Address [address] [place] [address] Care Team Providers Name Role Phone Unassigned, Provider Primary Care Provider Unavailable Encounter Details Date Type Department Care Team Description 12/13/2006 [facility] Curtis Antoine Op Report-Archive [address] StreetBritton García [place] [address] [facility] [phone] [place] [address] Social History Tobacco Use Types Packs/Day Years Used Date Smoking Tobacco: Never Assessed Sex Assigned at Date Recorded Not on file documented as of this encounter Plan of Treatment Not on filedocumented as of this encounter Visit Diagnoses Not on filedocumented in this encounter Care Teams Photo Finish Photographer Relationship Specialty Start Date End Date Unassigned, Provider PCP - General 08/05/03 12/13/17 [address] [place] [address] documented as of this encounter
--- OUTSIDE RECORDS SUMMARY | 2022-08-01 07:38 | XMS_ITS | Encounter Summary ---
:1965 Author Organization [facility] Address [address] [place] [address] Care Team Providers Name Role Phone Jose Holden MD Primary Care Provider [phone] Encounter Details Date Type Department Care Team Description 02/14/2018 [facility] Chava Simon, RN [place] Neurosurgery/ Ortho Spine [address] [place] [address] Social History Tobacco Use Types Packs/Day [...] if we have received her preop yet. Shank Rander relayed we have not. Patient was given [phone] to have preop be faxed to us. Patient states she already talked to them and they said they already sent it but she will reach out to them again. Will await a return call from patient/watch out for fax. Michael Cruz 02/14/2018, 10:06 AM Chava Simon RN - 02/14/2018 9:11 AM CDT I still have not received patient's preop from [facility]. Could you please call patient and make sure she has had it faxed to us? Chava Simon RN 02/14/2018, 9:11 AM documented in this encounter Plan of Treatment Not on filedocumented as of this encounter Visit Diagnoses Not on filedocumented in this encounter Care Teams 7Th Grade Social Studies Teacher Relationship Specialty Start Date End Date Jose Holden MD PCP - General Otolaryngology 12/14/17 [facility] [place] [address] documented as of this encounter
--- OUTSIDE RECORDS SUMMARY | 2022-08-01 07:38 | XMS_ITS | Encounter Summary ---
:1965 Author Organization [facility] Address [address] [place] [address] Care Team Providers Name Role Phone Jose Holden MD Primary Care Provider [phone] Reason for Visit Procedure/Equipment (Routine) - Incomplete Specialty Diagnoses / Procedures Referred By Contact Refer red To Contact Diagnoses Screening procedure Pseudarthrosis after fusion or arthrodesis Pete Gonzalez MD Procedures [place] Video Swallow Study [address] [place] [address] Referral ID Status Reason Start Date Expiration Date Visits V isits Requested Authorized [id number] Incomplete 11/29/2017 02/28/2019 1 1 Encounter Details Date Type Department Care Team Description 12/26/2017 [facility] MD Screening procedure; [facility] [address] [place], [place] [id number] Ps eudarthrosis after fusion or arthrodesis Radiology [facility] [address] [place] [address] [place] [address] [phone] (Wo rk) Social History Tobacco Use Types [...] Screening pr ocedure Results for this STUDY CUSHION SEWER Pseudarthrosis after procedu re are in fusion or the results arthrodesis section. documented in this encounter Results [place] Video Swallow Study (12/26/2017 1:03 PM CUSHION SEWER) Anatomical Region Laterality Modality Neck, Chest Radio Fluoroscopy Specimen (Source) Anatomical Collection Method Collection Time Re ceived Time Location / / Volume Laterality 12/26/2017 1:03 PM CUSHION SEWER Narrative 12/26/2017 6:00 PM CUSHION SEWER [place] VIDEO SWALLOW STUDY 12/26/2017 1:03 PM [...] for additional details. Pete Gonzalez MD RAD MA documented in this encounter Visit Diagnoses Diagnosis Screening procedure Screening for unspecified condition Pseudarthrosis after fusion or arthrodes is Arthrodesis status documented in this encounter Administered Medications Inactive Administered Medications - up to 3 most recent administrations Medication Order MAR Action Action Date Dose Rate Site barium sulfate (EZ PAQUE) Given 12/26/2017 1:06 PM CUSHION SEWER 200 mL suspension 200 mL 200 mL, Oral, ONCE (NON-SCHEDULED), Starting on Tue12/26/17 at 1305, For 1 dose barium sulfate (EZ-DISK) tablet 700 mg Given 12/26/2017 1:06 PM CUSHION SEWER 700 mg 700 mg, Oral, ONCE (NON-SCHEDULED), Starting on Tue12/26/17 at 1305, Until Tue12/26/17 at 1306, For 1 dose barium sulfate (EZ-PASTE) oral cream 9 g Given 12/26/2017 1:06 PM CUSHION SEWER 9 g 9 g (15 mL), Oral, ONCE (NON-SCHEDULED), Starting on Tue12/26/17 at 1305, For 1 dose barium sulfate (VARIBAR, TAGITOL V) 40 % Given 12/26/2017 1:06 P M CUSHION SEWER 240 mL suspension 240 mL 240 mL, Oral, ONCE (NON-SCHEDULED), Starting on Tue12/26/17 at 1305, Until Tue02/20/18 at 1710, For 3 doses documented in this encounter Care Teams Intelligence Agent Relationship Specialty Start Date End Date Jose Holden MD PCP - General Otolaryngology 12/14/[address] [facility] [place] [place] [address] documented as of this encounter
--- OUTSIDE RECORDS SUMMARY | 2022-08-01 07:38 | XMS_ITS | Encounter Summary ---
:1965 Author Organization [facility] Address [address] [address] Care Team Providers Name Role Phone Jose Holden MD Primary Care Provider [phone] Reason for Visit Auth/Cert Specialty Diagnoses / [...] Expiration Date Visits Requ ested Visits Authorized [id number] 1 1 Encounter Details Date Type Department Care Team Description 02/20/2018 Surgery RH Operating Room Marky Gonzalez MD FUSION POSTERIOR [address] [place] [address] [place] C2-T3, REMOVAL HARDWARE [phone] [id number] SPINE Anterior plate [phone] (Wo rk) and Posterior screws and rods [...] encounter Discharge Summaries Sneha Maher, Sirisha Celaya, AUTOCAD DESIGNER, SKELP PROCESSOR - 02/23/2018 9:09 AM CDT Neurosurgery Discharge [...] fl Narrative Performed at [facility], [address] [place] [address] Physical Exam: BP 124/78 Pulse 74 Temp [...] T1. 3. Intraoperative placement and removal of [place] tongs. 4. Hardware removal, C6-T1 posterior. 5. [...] in strength to your extremeties. Neurosurgery clinic [phone]. If it is after hours, please call [...] neurosurgery RN on 03/07 at 11AM at [address] [place] [address], 2nd floor. 2. Follow up with Dr. Gonzalez/Lois Pham PA-C/Sirisha Maher NP on 04/05 at 1:00PM at [address] [place] [address]. Patient also instructed to call clinic at [phone] or [facility] for any questions or concerns. Patient verbalizes understanding and states no further questions at this time. 3. Follow up with PCP for any medical issues Total time spent at the time of discharge was 30 minutes Sirisha Maher APRN, [place] Pgr#[phone] documented in this encounter Discharge Instructions Discharge InstructionsDonna Ellis RN - 02/23/2018 10:42 AM CD[place] [address] General Information Discharging physician: Dr. Gonzalez [facility] Emergency & Urgently Needed Care: For emergencies call 911 and/or get medical help right away. If you are a [facility] member and have medical needs after clinic hours you may call the [facility] [phone] or . Fall Prevention Recommendations ??? Follow [...] Ellis RN - 02/23/2018 11:50 AM CDT [facility] Discharge Note - Nursing Admission [...] End of Report --- Sirisha Rankin APRN, SKELP PROCESSOR - 02/23/2018 9:02 AM CDT Neurosurgery Progress [...] including C3- T1 posterior fusion (done in [place] approx 6 years ago), with C6-T1 pseudoarthrosis, [...] Dc home today ?? Sirisha Maher APRN, SKELP PROCESSOR 02/23/2018, 9:02 AM Neurosurgery Pgr#[phone] Jolene Kaur PA-C - 02/22/2018 12:45 PM [...] including C3- T1 posterior fusion (done in [place] approx 6 years ago), with C6-T1 pseudoarthrosis, s/p C6-T1 ACDF approx [address] Ihsan Brooek, still with pseudoarthrosis; ongoing neck pain and [...] Lois Pham PA-C, 02/22/2018, 9:05 AM Neurosurgery [phone] He Reyes MD - 02/22/2018 8:29 AM [...] questionsor concerns. He Reyes M.D. [facility] Pain Management [phone] INTERVAL HISTORY: She started tizanidine last night [...] 450 mg 450 mg Oral At Bedtime Beyrl Capps 450 mg at 02/21/188 ??? prochlorperazine [...] 02/22/18 0743 Current Outpatient Prescriptions Ordered in [facility] Medication Sig Dispense Refill ??? [...] TIME SPENT: 35 minutes including 50% time kvdr-ye-rjto time counseling her about her diagnosis and treatment options, and coordinating care with the primary team. DECISION-MAKING: The level of decision-making in this case is high/complex due to the complexity of medical problems, acute/chronic pain, opioid analgesia issues, and behavioral factors. He Reyes M.D. Brooklyn Whittington - 02/21/2018 1:47 PM CDT [facility] Care Management Screening Admission Info: Cognitive [...] She see Dr Dr Estephanie Franz at [facility]. No DC needs anticipated. I verified the demographics on the face sheet for the correct address, phone number, emergency contact and PCP information. Brooklyn Whittington RN CM [phone] Lois Pham PA-C - 02/21/2018 9:23 AM CDT Neurosurgery Progress Note Date of service: 02/21/2018 Subjective: Feels sore. Upset she did not have EMERGENCY PLANNING AND RESPONSE MANAGER overnight. Wants to go smoke. Wants to [...] including C3- T1 posterior fusion (done in [place] approx 6 years ago), with C6-T1 pseudoarthrosis, [...] there were a couple of options including EMERGENCY PLANNING AND RESPONSE MANAGER vs IV pain medications for post op pain control, and rationale for non EMERGENCY PLANNING AND RESPONSE MANAGER at this time. Did discuss that would not recommend DC as drain still has high output. Upright xrays prior to DC Up with assistance Continue hemovac until <30/shift Soft collar when OOB, PRN in bed for comfort PT/OT Dispo: Anticipate home in next 1-2 days pending drain output Lois Pham PA-C, 02/21/2018, 9:23 AM Neurosurgery [phone] He Reyes MD - 02/20/2018 1:20 PM [address] Note from Dr. Covarrubias on 02/13/18: ? 1. On the day of surgery please order an Inpatient pain consult 2. Ketamine 5mg/h during surgery ?? Recommendations for opioids: ?? If using a EMERGENCY PLANNING AND RESPONSE MANAGER: No oral opioids Start a EMERGENCY PLANNING AND RESPONSE MANAGER pump with Dilaudid continuous IV infusion at a basal rate of 0.1 mg/hr with EMERGENCY PLANNING AND RESPONSE MANAGER boluses of 0.2-0.4 mg every 10 minutes. ?? If not using a EMERGENCY PLANNING AND RESPONSE MANAGER: Start dilaudid 2-4mg q3h prn (alternatively can [...] Pham PA-C - 02/20/2018 3:24 PM CDT [facility] Brief Operative Progress Note Surgery Date: 02/20/2018 Surgeon(s) and Role: * Marky Gonzalez MD - Primary PHYSICIAN SURVEY SUPERVISOR-Meka Pham Pre-op Diagnosis: * Cervical spondylosis with [...] The procedure was medically necessary for an ophthalmic medical assistant because Dr. Gonzalez needed the operative [...] Lois Pham PA-C, 02/20/2018, 3:25 PM Neurosurgery [phone] Marky Gonzalez MD - 02/20/2018 12:00 AM CDT [facility]: [id number] OPERATIVE REPORT DATE OF SURGERY: 02/20/2018 : 1965 SURGEON: MARKY GONZALEZ MD SURVEY SUPERVISOR: Lois Pham PA-C. PREOPERATIVE DIAGNOSES: 1. Status [...] stepwise fashion using absorbable suture. We placed [place] Wars tongs and then flipped the patient prone [...] all critical portions. MARKY GONZALEZ MD MMK/MODL /[id number] cc: MARKY GONZALEZ MD documented in this [...] risk. She has been on these buttermaker continuous churn, desires to eventually come off. She also [...] questionsor concerns. He Reyes M.D. [facility] Pain Management [phone] HISTORY OF PRESENT ILLNESS: Per Chart Review: [...] - headache Opioid prescriber: LEDY Ojeda MD-valium [facility] database review: Risk Factors: History [...] CURRENT MEDICATIONS: Current Facility-Administered Medications Ordered in [facility] Medication Dose Route Frequency Provider Last [...] Intravenous PRN based on Blood Sugar Lois Phma PA-C ??? diphenhydrAMINE (BENADRYL) capsule 25-50 mg 25-50 mg Oral Q6H PRN Lois Pham PA-C ??? glucagon rDNA (diagnostic) (GLUCAGEN) injection 1 mg 1 mg Intramuscular ONCE PRN Lois Pham PA-C ??? glucose-ascorbic acid (aka [id number]) chewable tablet 4 Tab 4 Tab Oral [...] TIME SPENT: 70 minutes including 50% time uxyn-vt-rcao time counseling her about her diagnosis and treatment options, and coordinating care with the primary team. DECISION-MAKING: The level of decision-making in this case is high/complex due to the complexity of medical problems, acute/chronic pain, opioid analgesia issues, and behavioral factors. documented in this encounter Miscellaneous Notes OR Nursing - Monica Pate, RN - 02/20/2018 2:49 PM CDT [facility] Progress Note Patient Name: Angie Bender [...] failure. Anatomic alignment. Shoulder prosthesis. Sirisha Maher AUTOCAD DESIGNER, SKELP PROCESSOR RAD GD (ABNORMAL) Complete Blood Count-No Diff (02/22/2018 12:36 PM CDT) athologist Signature WBC 10.2 4.0 - 11.0 [facility] RBC 3.36 (L) 4.0 - 5.2 [facility] Hemoglobin 11.1 (L) 12.0 - 16.0 [facility] g/dl [facility] HCT 33.2 (L) 36.0 - 46.0 [facility] MCV 98.8 80 - 100 fl [facility] MCH 33.0 26 - 34 pg [facility] MCHC 33.4 32 - 36 [facility] g/dl [facility] RDW 14.4 11.5 - 14.5 [facility] Platelets 183 150 - 450 [facility] MPV 10.6 9.4 - 12.4 [facility] Specimen Anatomical Collection Method Collection Time Receive d Time (Source) Location / / Volume Laterality 02/22/2018 12:36 02/22/2018 PM CDT 12:37 PM CDT Narrative [facility] - 02/22/2018 12:46 PM C DT Performed at [facility] , [address] [place] [address] Lois Pham PA-C LAB_1 Performing Organization Address City/State/ZIP Code Phon e Number [facility] [address] [place] [address] [address], [facility] [phone] XR Cervical Spine AP/Lat Upright (02/21/2018 9:50 [...] Marky Gonzalez MD LAB_1 Performing Organization Address City/[facility] Phon e Number [address] [address] [place] [address], [facility] (ABNORMAL) Basic Metabolic Panel (02/21/2018 7:12 AM [...] Est., If >60 >60 [facility] Black ml/min/1.7 [facility] 3m2 Specimen Anatomical Collection Method Collection Time Receive d Time (Source) Location / / Volume Laterality 02/21/2018 7:12 AM 8 7:13 CDT AM CDT Narrative [facility] - 02/21/2018 7:47 AM CD T Performed at [facility] , [address] [place] [address] Lois Pham PA-C LAB_1 Performing Organization Address [facility]/ZIP [facility] Phon e Number [address] [address] [place] [address], [facility] (ABNORMAL) Hemogram with Plts (02/21/2018 7:12 AM CDT) athologist Signature WBC 10.0 4.0 - 11.0 [facility] RBC 3.29 (L) 4.0 - 5.2 [facility] Hemoglobin 10.7 (L) 12.0 - 16.0 [facility] g/dl HOSPITAL HCT 32.2 (L) 36.0 - 46.0 [facility] MCV 97.9 80 - 100 fl [facility] MCH 32.5 26 - 34 pg [facility] MCHC 33.2 32 - 36 [facility] g/dl HOSPITAL RDW 13.9 11.5 - 14.5 [facility] Platelets 186 150 - 450 [facility] MPV 10.3 9.4 - 12.4 [facility] Specimen Anatomical Collection Method Collection Time Receive d Time (Source) Location / / Volume Laterality 02/21/2018 7:12 AM 8 7:13 CDT AM CDT Narrative [facility] - 02/21/2018 7:26 AM CD T Performed at [facility] , [address] [place] [address] Lois Pham PA-C LAB_1 Performing Organization Address City/[facility] Phon e Number [address] [address], [facility] Glucose, Whole Blood POC (02/20/2018 11:20 PM CDT) athologist Signature Glucose, Whole 140 70 - 180 [facility] Blood mg/dl [facility] Comment: Point of Care Testing No Action Required Specimen Anatomical Collection Method Collection Time Receive d Time (Source) Location / / Volume Laterality 02/20/2018 11:20 02/20/2018 PM CDT 11:26 PM CDT Marky Gonzalez MD LAB_1 Performing Organization Address City/[facility] Phon e Number [address] [address], [facility] [phone] Glucose, Whole Blood POC (02/20/2018 5:05 PM CDT) athologist Signature Glucose, Whole 145 70 - 180 [facility] Blood mg/dl [facility] Comment: Point of Care Testing No Action Required Specimen Anatomical Collection Method Collection Time Receive d Time (Source) Location / / Volume Laterality 02/20/2018 5:05 PM 8 5:25 CDT PM CDT Marky Gonzalez MD LAB_1 Performing Organization Address City/State/ZIP Code Phon e Number [address] [address], [facility] [phone] Glucose, Whole Blood POC (02/20/2018 3:45 PM CDT) athologist Signature Glucose, Whole 145 70 - 180 [facility] Blood mg/dl HOSPITAL Comment: Point of Care Testing No Action Required Specimen Anatomical Collection Method Collection Time Receive d Time (Source) Location / / Volume Laterality 02/20/2018 3:45 PM 8 3:52 CDT PM CDT Marky Gonzalez MD LAB_1 Performing Organization Address City/[facility]/ZIP Code Phon e Number [address] [address], [facility] XR C-Arm 0-30 Minutes (02/20/2018 2:05 PM CDT) Anatomical Region Laterality Modality Other Specimen (Source) Anatomical Location Collection Method / Collectio n Time Received Time / Laterality Volume Narrative 02/20/2018 2:06 PM CDT Fluoroscopy provided by a blood bank technologist. Exact fluoroscopy time is documented in end of exam information in EPIC Marky Gonzalez MD RAD GD XR C-Arm 2.5-3 Hours (02/20/2018 12:45 PM CDT) Anatomical Region Laterality Modality Other Specimen (Source) Anatomical Location Collection Method / Collectio n Time Received Time / Laterality Volume Narrative 02/20/2018 12:45 PM CDT Fluoroscopy provided by a blood bank technologist. Exact fluoroscopy time is documented in end of exam information in EPIC Marky Gonzalez MD RAD GD XR C-Arm 30-59 Minutes (02/20/2018 12:36 PM CDT) Anatomical Region Laterality Modality Other Specimen (Source) Anatomical Location Collection Method / Collectio n Time Received Time / Laterality Volume Narrative 02/20/2018 12:36 PM CDT Fluoroscopy provided by a blood bank technologist. Exact fluoroscopy time is documented in end of exam information in EPIC Marky Gonzalez MD RAD GD Glucose, Whole Blood POC (02/20/2018 9:02 AM CDT) athologist Signature Glucose, Whole 135 70 - 180 [facility] Blood mg/dl [facility] Comment: Point of Care Testing RN Notified Specimen Anatomical Collection Method Collection Time Receive d Time (Source) Location / / Volume Laterality 02/20/2018 9:02 AM 8 9:08 CDT AM CDT Marky Gonzalez MD LAB_1 Performing Organization Address City/[facility]/ZIP Code Phon e Number [address] [address] [place] [address], [facility] Glucose, Whole Blood POC (02/20/2018 6:25 AM CDT) athologist Signature Glucose, Whole 90 70 - 180 [facility] Blood mg/dl [facility] Specimen Anatomical Collection Method Collection Time Receive d Time (Source) Location / / Volume Laterality 02/20/2018 6:25 AM 8 6:34 CDT AM CDT Marky Gonzalez MD LAB_1 Performing Organization Address City/[facility]/ZIP Code Phon e Number [address] [address], [facility] [phone] ABO/RH(D) Retype (02/20/2018 6:22 AM CDT) athologist Signature ABO/RH(D) A NEGATIVE [facility] Specimen Anatomical Collection Method Collection Time Receive d Time (Source) Location / / Volume Laterality 02/20/2018 6:22 AM 8 6:25 CDT AM CDT Narrative [facility] - 02/20/2018 7:06 AM CD T Performed at [facility] , [address] [place] [address] Marky Gonzalez MD LAB_1 Performing Organization Address City/[facility]/ZIP Code Phon e Number [address] [address], [facility] INR/Protime (PT/INR) (02/20/2018 6:08 AM CDT) P athologist Signature Protime 13.0 12.0 - 14.5 [facility] INR 1.0 0.9 - 1.1 [facility] Specimen Anatomical Collection Method Collection Time Receive d Time (Source) Location / / Volume Laterality 02/20/2018 6:08 AM 8 6:22 CDT AM CDT Narrative [facility] - 02/20/2018 6:40 AM CD T Performed at [facility] , [address] [place] [address] Sirisha Maher APRN, CNP LAB_1 Performing Organization Address City/[facility] Phon e Number [address] [address] [place] [address], [facility] [phone] Hemogram with Platelets (02/20/2018 6:08 AM CDT) P athologist Signature WBC 6.7 4.0 - 11.0 [facility] RBC 4.13 4.0 - 5.2 [facility] Hemoglobin 13.5 12.0 - 16.0 [facility] gdl [facility] HCT 39.8 36.0 - 46.0 [facility] MCV 96.4 80 - 100 [facility] MCH 32.7 26 - 34 pg [facility] MCHC 33.9 32 - 36 [facility] RDW 13.8 11.5 - 14.5 [facility] Platelets 245 150 - 450 [facility] MPV 10.6 9.4 - 12.4 [facility] Specimen Anatomical Collection Method Collection Time Receive d Time (Source) Location / / Volume Laterality 02/20/2018 6:08 AM 8 6:22 CDT AM CDT Narrative [facility] - 02/20/2018 6:32 AM CD T Performed at [facility] , [address] [place] [address] Sirisha Maher APRN, SKELP PROCESSOR LAB_1 Performing Organization Address City/[facility]/ZIP [facility] Phon e Number [address] [address], [facility] (ABNORMAL) Basic Metabolic Panel (02/20/2018 6:08 AM CDT) athologist Signature Sodium 139 136 - 145 [facility] mmol/L [facility] Potassium 4.4 3.5 - 5.1 [facility] mmol/L [facility]OSPITAL Comment: Specimen Slightly Hemolyzed Hemolysis May Affect Result Chloride 109 98 - 109 mmol/L [facility] AL CO2 18 (L) 20 - 29 mmol/L [facility] L Anion Gap (calc.) 12 7 - 16 mmol/L [facility] Glucose 96 70 - 180 mg/dl [facility] L Calcium 9.4 8.4 - 10.2 mg/dl [facility] EHSAN BUN 14 7 - 26 mg/dl [facility] Creatinine 0.69 0.55 - 1.02 mg/dl [facility] GFR, Estimated >60 >60 ml/min/1.73m2 [facility] GFR, Est., If Black >60 >60 ml/min/1.73m2 [facility] Specimen Anatomical Collection Method Collection Time Receive d Time (Source) Location / / Volume Laterality 02/20/2018 6:08 AM 8 6:22 CDT AM CDT Critical access hospital - 02/20/2018 6:52 AM CD T Performed at [facility] , [address] [place] [address] Sirisha Maher APRN, SKELP PROCESSOR LAB_1 Performing Organization Address City/State/ZIP Code Phon e Number [address] [address], [facility] [phone] aPTT (Activated Partial Thromboplastin Time) (02/20/2018 6:08 AM CDT) athologist Signature PTT 26.8 24.0 - 37.0 [facility] sec [facility] Specimen Anatomical Collection Method Collection Time Receive d Time (Source) Location / / Volume Laterality 02/20/2018 6:08 AM 8 6:22 CDT AM CDT Critical access hospital - 02/20/2018 6:40 AM CD T Performed at [facility] , [address] [place] [address] Sirisha Celaya Sneha Maher APRN, SKELP PROCESSOR LAB_1 Performing Organization Address City/[facility]/ZIP Code Phon e Number [address] [address], [facility] ABO Rh & Antibody Screen (Type & Screen) (02/20/2018 6:07 AM CDT) [facility] gist Method Time Signature Crossmatch 02/23/2018 [facility] HOSPITAL ABO/RH(D) A NEGATIVE [facility] Antibody NEGATIVE [facility] Screen HOSPITAL Specimen Anatomical Collection Method Collection Time Receive d Time (Source) Location / / Volume Laterality 02/20/2018 6:07 AM 8 6:22 CDT AM CDT Narrative [facility] - 02/20/2018 7:10 AM CD T Performed at [facility] , [address] [place] [address] Sirisha Maher APRN, SKELP PROCESSOR LAB_1 Performing Organization Address City/[facility] Phon e Number [address] [address], [facility] [phone] EKG IP (02/20/2018 12:00 AM CDT) Specimen (Source) Anatomical Location Collection Method / Collectio n Time Received Time / Laterality Volume 02/20/2018 Narrative This result has an attachment that is no t available. Provider [facility] EKG documented in this encounter Visit Diagnoses [...] Segura, RN - 02/23/2018 9:57 AM CDT [facility] Plan of Care Note Assessment: Incisions [...] Carbajal RN - 02/23/2018 7:43 AM CDT [facility] Plan of Care Note Assessment: pain [...] Rico RN - 02/22/2018 10:15 PM CDT [facility] Plan of Care Note Assessment: comfort [...] Rico RN - 02/22/2018 4:00 PM CDT [facility]. MD Notified Note Name of MD notified: Ankit Time of MD notification: 1600 hours and 1 minute Reason: Pt.asking for valium now and current order for HS prn. plz review. [id number]. Response: Valium one time dose now and HS prn. Shawn Butcher RN --- End of Report --- Plan of Care - Alec Gifford RN - 02/22/2018 1:57 PM CDT [facility] Plan of Care Note Assessment: pain [...] Lundberg RN - 02/22/2018 2:32 AM CDT [facility] Plan of Care Note Assessment: Pain [...] Orellana RN - 02/22/2018 12:33 AM CDT [facility] Plan of Care Note Assessment: Pain [...] Gifford RN - 02/21/2018 1:41 PM CDT [facility] Plan of Care Note Assessment: pain [...] Lundberg RN - 02/21/2018 4:56 AM CDT [facility]. MD Notified Note Name of MD notified: Neurosurg Time of MD notification: 0400 hours and 55 minutes Reason: [id number]- Pt reporting oral/IV pain meds ineffective. Pt upset, req further intervention. Please advise. Thanks. Response: Discussed w/ neurosurg. To be addressed in AM and PRNs to continue to be administered as able. Anita Lundberg RN --- End of Report --- Plan of Care - Anita Lundberg RN - 02/21/2018 2:26 AM CDT [facility] Plan of Care Note Assessment: Pain [...] and Signs and Symptoms Outcome: Progressing 02/20/18 4926 Pain, Acute Related Risk Factors (Acute Pain) surgery;procedure/treatment;persistent pain;disease process Signs and Symptoms (Acute Pain) alteration in muscle tone;sleep pattern alteration;verbalization of pain descriptors;questions meaning of pain;pacing/restlessness Goal: Acceptable Pain Control/Comfort Level 02/20/18 2356 Pain, Acute (Adult) Acceptable Pain Control/Comfort Level unable to achieve outcome Comments: [facility] Plan of Care Note Assessment: posterior neck pain worst than anterior Plan: IHR, assessment, pain control Subjective: I thought that I was going to be on a dilaudid drip Objective: Pt angry that she was not on a EMERGENCY PLANNING AND RESPONSE MANAGER pump, Dilaudid PO and IV given q3h, [...] 10:32 AM CDT 2 Patches lidocaine-epinephrine 1 %-1:[id number] injec tion Given 02/20/2018 10:21 AM CDT [...] RN) 0820 (Given - Provider: Marlen Segura, ARDHA) 5 mg, Oral, DAILY, First dose on [...] HS
documented in this encounter Care Teams Digester Capper Relationship Specialty Start Date End Date Jose Holden MD PCP - General Otolaryngology 12/14/[address] [place] [address] documented as of this encounter
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
--- OUTSIDE RECORDS SUMMARY | 2022-08-01 07:38 | XMS_ITS | Encounter Summary ---
:1965 Author [facility] Address [address] [place] [address] Care Team Providers Name Role Phone Jose Holden MD Primary Care Provider [phone] Encounter Details Date Type Department Care Team Description 01/17/2018 Telephone [facility] Chava Simon RN Center Neurosurgery/ Ortho Spine [address] [place] [address] Social History Tobacco Use Types [...] in. Chava Simon RN 01/17/2018, 1:26 PM LEX MANAGER documented in this encounter Plan of Treatment Not on filedocumented as of this encounter Visit Diagnoses Not on filedocumented in this encounter Care Teams Small Business Banking Officer Relationship Specialty Start Date End Date Jose Holden MD PCP - General Otolaryngology 12/14/17 [address] [place] [address] documented as of this encounter
--- OUTSIDE RECORDS SUMMARY | 2022-08-01 07:38 | XMS_ITS | Encounter Summary ---
:1965 Author [facility] Address [address] [place] [address] Care Team Providers Name Role Phone Jose Holden MD Primary Care Provider [phone] Encounter Details Date Type Department Care Team Description 02/07/2018 Prep for Surgery [facility], [facility] Sirisha L, APR N, RUG SCRATCHER Neurosurgery/Ortho [address] [place] [address] [place] [address] [place] [address] [phone] Social History Tobacco Use Types Packs/Day Years [...] filedocumented in this encounter Care Teams Client Executive Relationship Specialty Start Date End Date Jose Holden MD PCP - General Otolaryngology 12/14/[address] [place] [address] documented as of this encounter
--- OUTSIDE RECORDS SUMMARY | 2022-08-01 07:38 | XMS_ITS | Encounter Summary ---
:1965 Author Organization [facility] Address [address], [place] [address] Care Team Providers Name Role Phone Jose Holden MD Primary Care Provider Encounter Details Date Type Department Care Team Description 12/02/2017 Orders Only External to Pete Gonzalez MD [address] [place], [place] [id number] (Wo rk) Social History Tobacco Use Types [...] 12/02/2017 12:00 AM Resul ts for this SENIOR BILLING CONSULTANT procedure are i n the results section. documented in this encounter Results MRI SPINE--SCAN (12/02/2017 12:00 AM SENIOR BILLING CONSULTANT) Anatomical Region Laterality Modality Other Specimen (Source) Anatomical Location Collection Method / Collectio n Time Received Time / Laterality Volume 12/02/2017 Narrative This result has an attachment that is no t available. Pete Gonzalez MD DUMMY/OTHER/AR documented in this encounter Visit Diagnoses Not on filedocumented in this encounter Care Teams Business Services Sales Agent Relationship Specialty Start Date End Date Jose Holden MD PCP - General Otolaryngology 12/14/17 [address] [place], [place] [id number] documented as of this encounter
--- OUTSIDE RECORDS SUMMARY | 2022-08-01 07:38 | XMS_ITS | Encounter Summary ---
:1965 Author Organization [facility] Address [address] [place] [address] Care Team Providers Name Role Phone Jose Holden MD Primary Care Provider [phone] Reason for Referral Consult/Transfer Care (Routine) - Closed Specialty Diagnoses / Procedures Referred By Contact Refer red To Contact Neurosurgery Diagnoses Pseudarthrosis after fusion or arthrodesis Pete Gonzalez MD [facility] [address] [place] [address] [place] [address] Phone: Fax: Referral ID Status Reason Start Date Expiration Date Visits Requ ested Visits Authorized [id number] Closed 01/17/2018 04/18/2019 1 1 Scheduling Instructions Your provider has recommended an appoint ment for a pre-operative pain consult with [facility]?? You may call [phone] to schedule your appointment.?? If you prefer, a mirela billy will contact you within the next 3 business days to assist you in setting u p this appointment. ICATIONS ANALYST Reason for Visit Reason Comments Revisit Encounter Details Date Type Department Care Team Description 01/17/2018 [facility] Visit [facility], Pseudarthr osis after [facility] Center MD fusion or arthrodesis Neurosurgery/Ortho [address] [place] [address] [place] [address] [phone] Social History Tobacco Use Types Packs/Day Years [...] Comments Blood Pressure 137/83 01/17/2018 11:51 AM APPLICATIONS ANALYST Pulse 83 01/17/2018 11:51 AM APPLICATIONS ANALYST Temperature 36.5 ??C (97.7 ??F) 01/17/2018 11:51 AM APPLICATIONS ANALYST Respiratory Rate 16 01/17/2018 11:51 AM APPLICATIONS ANALYST Oxygen Saturation - - Inhaled Oxygen Concentration [...] business days) Please call Ana Rosa at [phone] if you have not heard from her. [...] prior to surgery. Please fax preops to [phone] Nothing to eat or drink from midnight [...] and Apply plenty of Hibiclens*, a special home restoration service cleaner, to a clean, wet washcloth. Wash [...] 8am-5pm, please call the Neurosurgery Clinic at [phone] if youhave any concerns related to your surgery before going to the Emergency Room, your family physician,or an Urgent Care. After hours call the [facility] Emergency Room at [phone]. PAIN MEDICATION POLICY The Department of Neurosurgery [...] duringweekend hours. Day of surgery, arrive at [facility] on 3rd floor 2 hours prior to surgery. The Same Day Surgery Nurses will call you 1-3 days prior to surgery to inform you what time you should arrive for your surgery. If they do not reach you, please call if your surgery is at [facility]. Review your surgery packet. Contact the Neurosurgery Center [phone] if you have any questions or concerns ICATIONS ANALYST documented in this encounter Progress Notes Pete [...] is prone to typos and grammatical errors. ICATIONS ANALYST documented in this encounter Plan of Treatment Scheduled Referrals Name Type Priority Associated Diagnoses Order S chedule PRE-OP PAIN CONSULT Referral Routine Pseudarthrosis after fusion Ordered: 01/17/2018 - ADULT or arthrodesis documented as of this encounter Procedures Procedure Name Priority Date/Time Associated Diagnosis Comme nts MRSA/MSSA PRE-OP Routine 01/17/2018 1:48 PM Pseudarthrosis aft er Results for this CULTURE APPLICATIONS ANALYST fusion or arthrodesis proced ure are in the results section. documented in this encounter Results MRSA/MSSA Pre-Op Culture (01/17/2018 1:48 PM APPLICATIONS ANALYST) Component Value Ref Test Analysis Performed At [facility] Range Method Time Signature Specimen Nose Swab [facility] Description LABORATORIES Special Unspecified [facility] Requests LABORATORIES Culture No Staphylococcus [facility] aureus Isolated LABORATORIES Report Status 01/18/2018 [facility] Final LABORATORIES Specimen Anatomical Collection Method Collection Time Receive d Time (Source) Location / / Volume Laterality Nasal swab taken NASAL STRUCTURE / 01/17/2018 1:48 PM 01/17/2018 1:49 (situation) Unknown APPLICATIONS ANALYST PM APPLICATIONS ANALYST Pete Gonzalez MD LAB_1 Performing Organization Address City/State/ZIP Code Phon e Number [facility] [phone] documented in this encounter Visit Diagnoses Diagnosis Pseudarthrosis after fusion or arthrodes is - Primary Arthrodesis status documented in this encounter Care Teams Hand Scraper Relationship Specialty Start Date End Date Jose Holden MD PCP - General Otolaryngology 12/14/17 [address] [place] [address] documented as of this encounter
--- OUTSIDE RECORDS SUMMARY | 2022-08-01 07:38 | XMS_ITS | Encounter Summary ---
:1965 Author Organization [facility] Address [address], [place] [address] Care Team Providers Name Role Phone Jose Holden MD Primary Care Provider [phone] Encounter Details Date Type Department Care Team Description 12/02/2017 Orders Only External to Pete Gonzalez MD [address] [place], [place] [address] (Wo rk) Social History Tobacco Use Types [...] 12/02/2017 12:00 AM Resul ts for this LEAD ATG DEVELOPER procedure are i n the results section. documented in this encounter Results MRI SPINE--SCAN (12/02/2017 12:00 AM LEAD ATG DEVELOPER) Anatomical Region Laterality Modality Other Specimen (Source) Anatomical Location Collection Method / Collectio n Time Received Time / Laterality Volume 12/02/2017 Narrative This result has an attachment that is no t available. Pete Gonzalez MD DUMMY/OTHER/AR documented in this encounter Visit Diagnoses Not on filedocumented in this encounter Care Teams Chemical Recovery Operator Relationship Specialty Start Date End Date Jose Holden MD PCP - General Otolaryngology 12/14/17 [address] [place], [place] [id number] documented as of this encounter
--- OUTSIDE RECORDS SUMMARY | 2022-08-01 07:39 | XMS_ITS | Encounter Summary ---
:1965 Author Organization [facility] Address [address] [place] [address] Care Team Providers Name Role Phone Elsewhere, Pcp Primary Care Provider Unavailable Reason for Visit Reason Comments Med Refill Encounter Details Date Type Department Care Team Description 07/19/2022 Refill Division of [facility] Internal H Hoda parmar M.D. Med Refill Medicine, [facility], [place] [address] [place] [address] [place], [place] [address] [phone] Social History Tobacco Use Types Packs/Day Years [...] you attend spiritism or Patient refused 2021 sabianism services? Do [...] documented as of this encounter Care Teams Steffen House Supervisor Relationship Specialty Start Date End Date Elsewhere, Pcp PCP - General Family Medicine 12/25/21 documented as of this encounter
--- OUTSIDE RECORDS SUMMARY | 2022-08-01 07:39 | XMS_ITS | Encounter Summary ---
:1965 Author Organization [facility] Address [address] [place] [address] Care Team Providers Name Role Phone Elsewhere, Pcp Primary Care Provider Unavailable Reason for Referral Physical Therapy (Routine) - Authorized Specialty Diagnoses / Procedures Referred By Contact Refer red To Contact Diagnoses Aftercare Total Shoulder Arthroplasty Flavia Broderick M.D. [facility] Procedures PT or OT eval and treat (first available) Referral ID Status Reason Start Date Expiration Date Visits V isits Requested Authorized [id number] Authorized 06/23/2022 06/23/2023 99 99 utpatient (Routine) - Closed Specialty Diagnoses / Procedures Referred By Contact Refer red To Contact Diagnoses Aftercare Total Shoulder Arthroplasty Flavia Broderick M.D. [facility] Procedures DX Shoulder Left 2+ Views Referral ID Status Reason Start Date Expiration Date Visits Requ ested Visits Authorized [id number] Closed 06/23/2022 06/23/2023 1 1 Reason for Visit Reason Comments Post-op Encounter Details Date Type Department Care Team Description 06/23/2022 Clinical Communication Department of [facility] Orthopedic Surgery in Lilian Souza [place], [place] [address] [facility] [address] [place] [phone] [phone] Social History Tobacco Use Types Packs/Day Years [...] you attend pentecostalism or Patient refused 2021 confucianism services? Do [...] documented as of this encounter Care Teams Structural Test Engineer Relationship Specialty Start Date End Date Elsewhere, Pcp PCP - General Family Medicine 12/25/21 documented as of this encounter
--- OUTSIDE RECORDS SUMMARY | 2022-08-01 07:39 | XMS_ITS | Clinical Summary ---
:1965 Author Organization [facility] Address [address] [place] [address] Care Team Providers Name Role Phone Elsewhere, Pcp Primary Care Provider Unavailable Source Comments Patient records contain information from all sites at [facility]. For routine questions regarding patient records, call [phone] during business hours, M-F 8:00 AM - 5:00 PM Central Time. Record requests for emergency care only can be directed to [phone] at any time.[facility] Allergies Active Allergy Reactions Severity Noted Date [...] 10/13/2017 Other lashaun ction(s): (see comments) Contact Soddy-Daisy titis Gabapentin Other (see comments) Low 05/12/2017 [...] mg oral Daily, Other, Reported on 06/21/2022 zecycbfddj-rcpklyyofgrns-gqef Take 1 tablet by 0 12/2020 Active [...] by 0 01/28 Active mouth at bedtime. multivit-min/iron/folic/dry080 Take 1 tablet by 0 Active (HAIR, [...] Added automatically from request for lonnie li [id number] Nicotine Dependence Unspecified 11/29/2017 Other Group Home Current Drug Therapy 12/30/2016 Opioid Moderate [...] 06/17/2022 Anesthesia Event Radiology Sapphire Verma, NIKKY, FOUNDRY METALLURGIST, DNAP Brian Hunt M.D. 06/17/2022 Orders Only [...] (ICD-10-CM)] 06/15/2022 Clinical Neurology Robert Diehl Followup ([facility] Communication Lilian Celaya Patient/) 06/10/2022 Clinical [...] Ex am 05/13/2022 Virtual Visit Social Work [facility], Pain Shoulder Left; Jenna Porter M.D. Preoperative [...] you attend confucianism or Patient refused 2021 religion services? Do you belong to any clubs or No 05/17/2022 organizations such as confucianism groups, unions, fraSweet [employer] or athletic groups, or school groups? How [...] 09/11/2021, 09/13/2020 Medical Devices Implanted Type Area Warehouse Attendant Device Shelf Model / Identifier Expiration Serial / Date Lot Cmnt Bn Smp 20gm - [id number] Bone Cement Left: [id number] [id number] / Implanted: Qty: 1 on 12/30/2021 by Cyrus Panchal M.D. at [facility] Shoulder / Grft Dbm Grf Obl Ld 15 - [id number] - [id number] Bone or Tis lebron Left: Medtronic 10/14/2023 [id number] / Implanted: Qty: 1 on 02/26/[address] [facility] Shoulder [id number] / 4mm Amplatz Micro Plug Embolization Brain Amplatzer [id number] / Implanted: Qty: 1 on 02/16/2021 by Mustapha Posey M.D. at [facility] Coil Structural Design Engineer / Dayo [id number] Description: MRI Conditional at 1.5T or 3T Max Whole Body YUSEF of 4 W/kg. AAC 2020 [email or web address] Hardware E.G. Hardware e.g. Neck Pins/Screws/Rods pins/screws/rods Scrw Cmp Pthrd 6.5x25 - [id number] Hardware e.g. Left: Trevor B iomet 12/29 [id number] / Implanted: Qty: 1 on 02/26/[address] [facility] pins/screws/rods Shoulder 05/17 [id number] Knee Implant Knee Implant Bilateral: Knee Plg Ocl Amp Avpii 6 - [id number] Mesh or Patch Pedersen 07/31 [id number] / Implanted: Qty: 1 on 02/16/2021 by Mustapha Posey M.D. at [facility] [id number] Shoulder Implant Shoulder Implant Left: Shoulder Bsplt Glnd Cmp Rv Aug Sm - [id number] Shoulder Implant Left: Trevor Biomet 01/26 [id number] / Implanted: Qty: 1 on 02/26/[address] [facility] Shoulder [id number] Hum Stm Cmp Rvrs Prim Mini 9 - [id number] Shoulder Implant Le ft: Trevor Biomet 08/28 [id number] / Implanted: Qty: 1 on 05/18/2022 by Cyrus Panchal M.D. at [facility] Shoulder 02/14 [id number] Medtronic Spinal Cord Stimulator Spinal Cord Back Medtronic [id number] / Implanted: 06/30/2020 (Quantity not on file) Stimulator [id number] / [id number] Description: Medtronic Intelllis Spinal Cord Stimulator model #[id number]. As of 06/17/22, the stimulator IPG is [...] as of 03-19-21 SDN Explanted Type Area Warehouse Attendant Device Shelf Model / Identifier Expiration Serial / Date Lot [facility] Vrs Dl [id number] - [id number] Shoulder Left: Trevor Biom et 05/29/2031 [id number] / Implanted: Qty: 1 on 12/30/2021 by Cyrus Panchal M.D. at [facility] Implant Shoulder / Explanted: Qty: 1 on 02/26/[address] [facility] [id number] [facility] Cmp Rvrs Prim Std 10 - [id number] Shoulder Left: Zi mmer Biomet 12/16/2029 [id number] / Implanted: Qty: 1 on 02/26/[address] [facility] Implant Shoulder / Explanted: Qty: 1 on 05/18/[address] [facility] [id number] Spinal Cord Stimulator Spinal Cord Pelvis Nevro [...] procedure are i n the results section. ME US GUIDE PLC NDL Routine 05/18/2022 11:24 AM R esults for this CDT procedure are i n the results section. ME INJ ANES BRACHIAL Routine 05/18/2022 11:24 AM [...] of3 resultswithin the time period is included. [facility] Method Time Signature Hemoglobin 11.2 (L) 11.6 [...] City/State/ZIP Code Phon e Number [facility] - [address] [place], [place] [address] [facility] [place] [address] [facility] [address] [facility] Basic Metabolic Panel (06/18/2022 7:50 AM CDT)Only [...] 06/18/2022 DTL Black/ mL/min/BSA 8:56 AM CDT Botswanan Comment: ----ADDITIONAL INFORMATION---- Estimated GFR calculated [...] City/State/ZIP Code Phon e Number [facility] - [address] [place], [place] [address] 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 The capitan grande band intraocular lenses are absent . 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 The cap[place] grande band intraocular lenses are absent . 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 The [place] band intraocular lenses are absent . 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 The [place] grande band intraocular lenses are absent . 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 The [place] grande band intraocular lenses are absent . 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 The cap[place] grande band intraocular lenses are absent . Mild mucosal [...] ETT location: oral VL device: glide scope [place] scope blade size: 3 Adult tube size: [...] City/State/ZIP Code Phon e Number [facility] - [address] [place], [place] [address] [facility] [address] [facility] [address] (ABNORMAL) Dipstick, Urine [...] M.D. LAB URINE ORDERABLES Performing Organization Address City/[facility] Phon e Number [facility] [address] pH, Random, Urine (06/16/2022 9:32 AM CDT) athologist Signature pH, Random, U 5.0 4.5 - 8.0 06/16/2022 DTL 11:17 AM CDT Specimen Anatomical Collection Method Collection Time Receive d Time (Source) Location / / Volume Laterality Urine 06/16/2022 9:32 AM 2 CDT 10:39 AM CDT Maira Haynes M.D. LAB URINE ORDERABLES Performing Organization Address City/[facility] Phon e Number [facility] - [address] (ABNORMAL) Microscopic Manual (06/16/2022 9:32 AM [...] M.D. LAB URINE ORDERABLES Performing Organization Address [facility] Phon e Number [facility] - [address] [place], [place] [address] [place] [address] [place] [address] (ABNORMAL) Urinalysis with Microscopic: Urine, Catheter (06/16/2022 9:32 AM CDT) [facility] gist Method Time Signature Source Urine, [...] M.D. LAB URINE ORDERABLES Performing Organization Address [facility] Phon e Number [facility] - [address] [place], [place] [address] [facility] [address] [facility] 200 [facility] Hemoglobin A1c (06/16/2022 7:31 AM CDT) athologist Signature Hemoglobin A1c, 4.9 4.0 - 5.6 06/16/2022 DTL B % 8:13 AM CDT Specimen Anatomical Collection Method Collection Time Receive d Time (Source) Location / / Volume Laterality Blood (Blood, 06/16/2022 7:31 AM 06/16/20 7:51 Venous) CDT AM CDT Kiran Melton M.D. LAB BLOOD ADD-ON Performing Organization Address City/[facility] Phon e Number [facility] - [address] [place], [place] [address] [place] [address] [facility] 200 [facility] Vitamin B12 Assay (06/16/2022 7:31 AM [...] M.D. LAB BLOOD ADD-ON Performing Organization Address City/[facility] Code Phon e Number [facility] - [address] [place], [place] [address] [place] [address] [facility] 200 [facility] (ABNORMAL) Comprehensive Metabolic Panel (06/16/2022 7:31 [...] 06/16/2022 DTL Black/ mL/min/BSA 8:22 AM CDT [place]otswanan Comment: ----ADDITIONAL INFORMATION---- Estimated GFR calculated [...] City/State/ZIP Code Phon e Number [facility] - [address] [place], [place] [address] [facility] [address] [facility] [address] [facility] Critical Care (06/15/2022 8:47 PM CDT) [...] life-threatening deterioration of the fo llowing conditions: [place] [place] failure or compromise Critical care was time spent personally by me on the following activities: ordering and review of radiographic stud ies, ordering and review of laboratory studies, discussions with [facility] provider, discussions with consultants, examination of patient, rev iew of old charts and re-evaluation of patient's condition Scooter Tony APRN, C.N.P. PROCEDURE/MINOR SURGICA L ORDERABLES SARS Coronavirus 2, PCR Rapid, V Symptomatic (06/15/2022 7:51 PM CDT) [facility] Method Time Signature SARS CoV-2, Undetected Undetected 06/15/2022 [facility] PCR, Rapid, V 8:23 PM CDT Comment: ----ADDITIONAL INFORMATION---- This RT-PCR test was performed using the Tita SARS-CoV-2 and Influenza A/B Reagent assay from [employer], which has received Emergency Use Authori zation(EUA) by the U.S. Food and Drug Administration . Fact sheets for this Emergency Use Autho rization (EUA) assay can be found at the following link s: For Healthcare Providers: https://www.fda.gov/media/307226/downloa d For Patients: https://www.fda.gov/media/148946/downloa d SARS Coronavirus 2, Source, Rapid Swab, Nasopharynx 06/15/2022 7:58 PM CDT [facility] Specimen Anatomical Collection Method Collection Time Receive d Time (Source) Location / / Volume Laterality Varies 06/15/2022 7:51 PM 7:58 (Nasopharynx) CDT PM CDT Araceli Ochoa APRNNBrittonPBritton LAB MICROBIOLOGY - GENE RAL ORDERABLES Performing Organization Address City/State/ZIP Code Phon e Number [facility] - [address] [place], [place] [address] [facility] [address] [facility] [address] Head Neck Angiogram [...] 2H/6H, 5th Gen (06/15/2022 2:48 PM CDT) [facility] Method Time Signature Troponin T, 2 <6 [...] 06/15/20 3:21 Venous) CDT PM CDT Narrative [facility] [place] - 06/15/2022 3:54 PM CDT Specimen Information: Specimen ID: [id number] Specimen Type: Blood Specimen Collection Start Date: 06/15/20 ??2:48 PM Specimen Received Date: 06/15/2022 ??3:2 1 PM Specimen ID: [id number] Specimen Type: Blood Specimen Collection Start Date: 06/15/20 ??3:53 PM Specimen Received Date: 06/15/2022 ??3:5 3 PM Demarcus Ernst M.D. LAB BLOOD TROPONIN Performing Organization Address City/State/ZIP Code Phon e Number [facility] - [address] [place], [place] [address] [facility] [address] [facility] [address] DX Hip And Pelvis [...] Signature Ventricular Rate 58 BPM MUSE ECG/Min ME Interval 154 ms MUSE QRSD Interval 102 ms MUSE QT Interval 442 ms MUSE QTC Interval 433 ms MUSE P [place] 48 degrees MUSE R [place] -1 degrees MUSE T Wave [place] 38 degrees MUSE Specimen Anatomical Collection Method [...] Signature Troponin T, <6 <=10 ng/L 06/15/2022 [facility] Baseline, 5th 1:37 PM CDT gen Specimen Anatomical Collection Method Collection Time Receive d Time (Source) Location / / Volume Laterality Blood (Blood, 06/15/2022 12:37 06/15/2022 1:03 Venous) PM CDT PM CDT Demarcus Ernst M.D. LAB BLOOD TROPONIN Performing Organization Address City/State/ZIP Code Phon e Number [facility] - [address] [place], [place] [address] [place] [address] [facility] [address] (ABNORMAL) Hepatic Function Panel [...] City/State/ZIP Code Phon e Number [facility] - [address] [place] [address] [facility] [address] [facility] 200 [facility] (ABNORMAL) CBC with Differential, Blood (06/15/2022 12:36 PM CDT)Only the most recent of4 resultswithin the time period is included. [facility] Method Time Signature Hemoglobin 10.4 (L) 11.6 [...] City/State/ZIP Code Phon e Number [facility] - [address] [place], [place] [address] [facility] [address] [facility] [address] [place] [address] [facility] [address] Prothrombin Time (PT) (06/15/2022 12:34 PM CDT) P athologist Signature Prothrombin 10.2 9.4 - 12.5 06/15/2022 [facility] Time, P sec 1:10 PM CDT INR 0.9 0.9 - 1.1 06/15/2022 [facility] 1:10 PM CDT Comment: ----ADDITIONAL INFORMATION---- [...] City/State/ZIP Code Phon e Number [facility] - [address] [place], [place] [address] [place] [address] [facility] [address] Interpretation of Outside CT [...] System IMG CT PROCEDURES Performing Organization Address [facility] Phon e Number IIMS IIMS NA XR [...] DIAGNOSTIC IMAGING PROCE DURES Performing Organization Address [facility] Phon e Number IIMS IIMS NA DX [...] Jenna Zaldivar M.D. IMG DIAGNOSTIC IMAGING PROCE [facility] Surgical Pathology, Frozen Lab (05/18/2022 1:04 PM CDT) Component Value Ref Test Analysis Performed At [facility] gist Range Method Time Signature 05/20/2022 [...] City/State/ZIP Code Phon e Number [facility] - [address] [place], [place] [address] [facility] [address] [facility] [address] Bacteria Cult, Aerobe / Anaerobe+Susc (05/18/2022 1:03 PM CDT)Only the most recent of3 resultswithin the time period is included. [facility] Method Time Signature Bacteria Cult, No growth 06/01/2022 DTL Aerobe/Anaerob after 14 6:02 PM CDT e+Susc days of incubation. Specimen Anatomical Collection Method Collection Time Receive d Time (Source) Location / / Volume Laterality Shoulder, Left 05/18/2022 1:03 PM 022 5:21 CDT PM CDT Comment: Specimen Source Site: Tissue #1 Narrative [facility] - [facility] - 06/01/2022 6:02 PM CDT Bacterial Culture: Placed in Bactec aero bic and Bactec anaerobic bottles Cyrus Polk M.D. LAB MICROBIOLOGY - GENERAL O RDERABLES Performing Organization Address City/State/ZIP Code Phon e Number [facility] - [address] [place] [address] [facility] [place] [address] [facility] [address] LDA ANE ENDOTRACHEAL AIRWAY [...] ETT location: oral VL device: glide scope [place] scope blade size: 3 Adult tube size: [...] no complications Kaushik Carlos Ch.BBritton ANESTHESIA ORDERABLES ME INJ ANES BRACHIAL PLEX, ME US GUIDE PLC NDL, MC ANE NERVE [...] Organization Address City/State/ZIP Code Phon e Number [facility] NA (ABNORMAL) SPSMA Result (05/17/2022 10:50 AM [...] Kamara LAB BLOOD ADD-ON Performing Organization Address City/[facility] Phon e Number [facility] - [address] [place], [place] [address] [place] [address] [facility] 200 [facility] Type and Screen (with reflex Antibody ID) (05/17/2022 10:50 AM CDT) [facility] Signature ABORh A Neg Not 05/17/2022 ETRM applicable 7:10 PM CDT Antibody Negative Negative 05/17/2022 ETRM Screen 7:22 PM CDT Type & Screen 07/15/2022 05/17/2022 ETRM Expiration 23:59 7:10 PM CDT Testing [place] DEFAULT 05/17/2022 ETRM Location 12:24 PM CDT Specimen Anatomical Collection Method Collection Time Receive d Time (Source) Location / / Volume Laterality Blood (Blood, 05/17/2022 10:50 05/17/2022 Venous) AM CDT 12:24 PM CDT Alfredo Kamara LAB BLOOD BANK TEST ORDERABL ES Performing Organization Address City/[facility] Phon e Number [facility] - [address] [place] [address] [facility] [address] [facility] 200 [facility] SARS Coronavirus 2, Molecular Detection, PCR, Varies Asymptomatic (05/17/2022 10:26 AM CDT) [employer] Method Time Signature COVID-19, Swab, 05/17/2022 DTL [...] ----ADDITIONAL INFORMATION---- This RT-PCR test using the OncoPep SARS-Co V-2 Assay ( [employer] performed on the OncoPep Two Module System has received Emergency Use Authorization (EUA) by the U.S. Food and Drug Administration, and is modified from the room service clerk's instructions with a bridging study. Performance characteristics were verifie d by [facility] in a manner consistent with CLIA requirements. Visit the CDC website: https://www.cdc.g ov/coronavirus/ for the most recent guidelines on [facility] virus testing. Fact Sheet for Healthcare Providers: https://www.fda.gov/media/039153/downloa d Fact Sheet for Patients: https://www.fda.gov/media/488628/downloa d Specimen Anatomical Collection Method Collection Time Receive d Time (Source) Location / / Volume Laterality Varies 05/17/2022 10:26 05/17/2022 (Nasopharynx) AM CDT 10:52 AM CDT Alfredo Kamara LAB MICROBIOLOGY - GENERAL O RDERABLES Performing Organization Address City/State/ZIP Code Phon e Number [facility] - [address] [place], [place] [address] [facility] [place] [address] [facility] 200 [facility] (ABNORMAL) Reflex anemia panel (previous CBC) [...] Venous) AM CDT 10:53 AM CDT Narrative [facility] [place] - 05/03/2022 11:47 AM CDT Specimen Information: Specimen ID: [id number] Specimen Type: Blood Specimen Collection Start Date: 10:11 AM Specimen Received Date: 05/03/2022 10:53 AM Specimen ID: [id number] Specimen Type: Blood Specimen Collection Start Date: 10:11 AM Specimen Received Date: 05/03/2022 10:53 AM Specimen ID: [id number] Specimen Type: Blood Specimen Collection Start Date: 10:11 AM Specimen Received Date: 05/03/2022 10:53 AM Specimen ID: [id number] Specimen Type: Blood Specimen Collection Start Date: 10:11 AM Specimen Received Date: 05/03/2022 10:32 AM Specimen ID: [id number] Specimen Type: Blood Specimen Collection Start Date: 10:11 AM Specimen Received Date: 05/03/2022 11:44 AM Shauna Rubin APRN, C.N.P., M.S.N. LAB BLOOD ADD-ON Performing Organization Address City/State/ZIP Code Phon e Number [facility] - [address] [place], [place] [address] [facility] [address] [facility] [address] from Last 3 Months Insurance Payer Benefit Plan / Subscriber ID Effective Phone Address T ype Group Dates MEDICARE MEDICARE A AND B [id number] 2012-Pre [address] Medicare [place] [address] MEDICA MEDICA [id number] 2018-Pres [phone] Medica id HMO ACCESSABILITY ent [phone] [place] [address] Advance Directives For more information, please contact: [phone] Latest Code Status on File Code Status [...] 8:26 PM Full Code: Discussed Care Teams Apple Press Operator Relationship Specialty Start Date End Date Elsewhere, Pcp PCP - General Family Medicine 12/25/21
--- OUTSIDE RECORDS SUMMARY | 2022-08-01 07:39 | XMS_ITS | Encounter Summary ---
:1965 Author Organization [facility] Address [address] [place] [address] Care Team Providers Name Role Phone Elsewhere, Pcp Primary Care Provider Unavailable Reason for Visit Appointment Request (Routine) - Closed Specialty Diagnoses / Procedures Referred By Contact Refer red To Contact Orthopedic Surgery Diagnoses Aftercare Total Shoulder Arthroplasty Referral ID Status Reason Start Date Expiration Date Visits Requ ested Visits Authorized [id number] Closed 06/23/2022 06/23/2023 1 1 Encounter Details Date Type Department Care Team Description 06/29/2022 Office Visit Department of Cyrus Polk Left Orthopedic Surgery in [place] (Primary Dx) [place], [place] [address] [place] [address] 200 [place] [phone] Social History Tobacco Use Types Packs/Day Years [...] you attend yazdanism or Patient refused 2021 mandaen services? Do [...] is dismissed to follow up through the [facility], Department of Orthopedic Surgery Total Joint Registry. [...] documented as of this encounter Care Teams Health Care Sanitary Technician Relationship Specialty Start Date End Date Elsewhere, Pcp PCP - General Family Medicine 12/25/21 documented as of this encounter
--- OUTSIDE RECORDS SUMMARY | 2022-08-01 07:39 | XMS_ITS | Encounter Summary ---
:1965 Author Organization [facility] Address [address] [place] [address] Care Team Providers Name Role Phone Elsewhere, Pcp Primary Care Provider Unavailable Reason for Visit Reason Comments Patient needs to r/s Jul 02 appointments Encounter Details Date Type Department Care Team Description 06/28/2022 Clinical Communication RST ANDREW Pollard, Patient needs to r/s [address] [facility] [place] Lilian Hughes Jul 02 appointments [place], [place] [address] [place] [address] [place] [address] Social History Tobacco Use Types Packs/Day Years [...] you attend sabianist or Patient refused 2021 restoration services? Do [...] call patient re: this . Thanks, Maritza [phone] documented in this encounter Plan of Treatment Not on filedocumented as of this encounter Visit Diagnoses Not on filedocumented in this encounter Additional Health Concerns Assessment Noted Time PHQ-9 Depression Total Score: 16 02/11/2021 12:00 AM C DT documented as of this encounter Care Teams Head Neck Surgeon Relationship Specialty Start Date End Date Elsewhere, Pcp PCP - General Family Medicine 12/25/21 documented as of this encounter
--- OUTSIDE RECORDS SUMMARY | 2022-08-01 07:39 | XMS_ITS | Encounter Summary ---
:1965 Author Organization [facility] Address 200 [place] [address] Care Team Providers Name Role Phone Elsewhere, Pcp Primary Care Provider Unavailable Reason for Referral Outpatient (Routine) - Closed Specialty Diagnoses / Procedures Referred By Contact Refer red To Contact Diagnoses Aftercare Total Shoulder Arthroplasty Flavia Broderick M.D. [facility] Procedures DX Shoulder Left 2+ Views Referral ID Status Reason Start Date Expiration Date Visits Requ ested Visits Authorized [id number] Closed 06/23/2022 06/23/2023 1 1 Reason for Visit Outpatient (Routine) - Closed Specialty Diagnoses / Procedures Referred By Contact Refer red To Contact Diagnoses Aftercare Total Shoulder Arthroplasty Flavia Broderick M.D. [facility] Procedures DX Shoulder Left 2+ Views Referral ID Status Reason Start Date Expiration Date Visits Requ ested Visits Authorized [id number] Closed 06/23/2022 06/23/2023 1 1 Encounter Details Date Type Department Care Team Description 06/29/2022 Hospital Encounter Department of Flavia Broderick re Total Radiology, Severiano Porter M.D. Shoulder Arthroplasty Building, in [place], [place] 200 [place] [address] Social History Tobacco Use Types Packs/Day Years [...] you attend jainism or Patient refused 2021 restorationist services? Do [...]
--- OUTSIDE RECORDS SUMMARY | 2022-08-01 07:39 | XMS_ITS | Encounter Summary ---
:1965 Author Organization [facility] Address 200 [place] [address] Care Team Providers Name Role Phone Elsewhere, Pcp Primary Care Provider Unavailable Reason for Visit Reason Comments Medication Question Encounter Details Date Type Department Care Team Description 06/21/2022 Clinical Communication RST ANDREW Pollard, Medication Question 200 [facility] Lilian Hughes [place], [place] 200 [facility] [phone] [place] [address] Social History Tobacco Use Types Packs/Day Years [...] you attend mosque or Patient refused 2021 yazidism services? Do [...] 1:12 PM CDT Prescriptions are sent to [facility] Telephone Encounter - Brenda Wright - 06/23/2022 3:02 PM CDT The patient called again re: her pregabalin prescription. She did not pick it up at the hospital pharmacy since she did not know it was there. Her regular pharmacy is [facility] in [place]. A newprescription needs to be sent to [facility] in [place]. The patient is out of this medication. Please call the patient if any questions: . She has been calling and has not heard from anyone re: this. Maritza Jefferson [phone] Patient is saying that she never was told to cherry picker operator the following prescription when she was discharged on 06/17: pregabalin (LYRICA) 300 mg capsule Please send new prescription to [facility] in [place], [place] Please call patient if there are any questions. Brenda Jefferson [phone] documented in this encounter Plan of Treatment Not on filedocumented as of this encounter Visit Diagnoses Not on filedocumented in this encounter Additional Health Concerns Assessment Noted Time PHQ-9 Depression Total Score: 16 02/11/2021 12:00 AM C DT documented as of this encounter Care Teams House Rn Relationship Specialty Start Date End Date Elsewhere, Pcp PCP - General Family Medicine 12/25/21 documented as of this encounter
--- OUTSIDE RECORDS SUMMARY | 2022-08-01 07:39 | XMS_ITS | Encounter Summary ---
:1965 Author Organization [facility] Address [address] [place] [address] Care Team Providers Name Role Phone Elsewhere, Pcp Primary Care Provider Unavailable Reason for Visit Reason Comments Pre-visit Intake Encounter Details Date Type Department Care Team Description 06/25/2022 Clinical Communication Visit Review in Pr e-visit Intake [place], [place] 200 [place], [place] [id number] Social History Tobacco Use Types Packs/Day Years [...] you attend yarsanism or Patient refused 2021 yarsani services? Do [...] as of this encounter Care Teams Software Analyst Relationship Specialty Start Date End Date Elsewhere, Pcp PCP - General Family Medicine 12/25/21 documented as of this encounter
--- OUTSIDE RECORDS SUMMARY | 2022-08-01 07:40 | XMS_ITS | Encounter Summary ---
:1965 Author Organization [facility] Address [address] [place] [address] Care Team Providers Name Role Phone Elsewhere, Pcp Primary Care Provider Unavailable Encounter Details Date Type Department Care Team Description 06/15/2022 Ancillary Procedure Department of Demarcus Ernst, Radiology in [place], [place] [address] [place] [address] [place] [phone] (Wo rk) Social History Tobacco Use Types [...] you attend muslim or Patient refused 2021 mormonism services? Do [...] documented as of this encounter Care Teams Stage Director Relationship Specialty Start Date End Date Elsewhere, Pcp PCP - General Family Medicine 12/25/21 documented as of this encounter
--- OUTSIDE RECORDS SUMMARY | 2022-08-01 07:40 | XMS_ITS | Encounter Summary ---
:1965 Author Organization [facility] Address [address] [place] [address] Care Team Providers Name Role Phone Elsewhere, Pcp Primary Care Provider Unavailable Reason for Visit Reason Comments Scooter prescription Encounter Details Date Type Department Care Team Description 05/19/2022 Clinical Communication Department of Robert Diehl prescription Neurology in [place], [facility] [place], [place] [address] [place] [address] [place], [place] [phone] (Work) [phone] Social History Tobacco Use Types Packs/Day Years [...] you attend amish or Patient refused 2021 orthodox services? Do [...] yesterday and is currently still admitted to [facility] until tomorrow. I encouraged her to [...] Stroke Cerebrovascular Accident Personal History Olivia Pedroza, Theatrical Trouper 05/19/22 11:51 AM CDT documented in this encounter Plan of Treatment Not on filedocumented as of this encounter Visit Diagnoses Not on filedocumented in this encounter Additional Health Concerns Assessment Noted Time PHQ-9 Depression Total Score: 16 02/11/2021 12:00 AM C DT documented as of this encounter Care Teams Manager Pathology Relationship Specialty Start Date End Date Elsewhere, Pcp PCP - General Family Medicine 12/25/21 documented as of this encounter
--- OUTSIDE RECORDS SUMMARY | 2022-08-01 07:40 | XMS_ITS | Encounter Summary ---
:1965 Author Organization [facility] Address [address] [place] [address] Care Team Providers Name Role Phone Elsewhere, Pcp Primary Care Provider Unavailable Reason for Visit Reason Comments xray results Encounter Details Date Type Department Care Team Description 06/10/2022 Clinical Communication Department of Cyrus Polk xr ay results Orthopedic Surgery in [place] Souza [place], [place] [address] [place] [address] 200 [place] [phone] [phone] Social History Tobacco Use Types Packs/Day Years [...] you attend zoroastrian or Patient refused 2021 jainism services? Do [...] Cyrus Polk M.D. CT CT Job ID: [id number] documented in this encounter Miscellaneous Notes Telephone [...] documented as of this encounter Care Teams Sheeter Waxer Operator Relationship Specialty Start Date End Date Elsewhere, Pcp PCP - General Family Medicine 12/25/21 documented as of this encounter
--- OUTSIDE RECORDS SUMMARY | 2022-08-01 07:40 | XMS_ITS | Encounter Summary ---
:1965 Author Organization [facility] Address [address] [place] [address] Care Team Providers Name Role Phone Elsewhere, Pcp Primary Care Provider Unavailable Reason for Visit Reason Comments Followup [facility] Patient Encounter Details Date Type Department Care Team Description 06/15/2022 Clinical Communication Department of [facility], Robert gay ([facility] Neurology in [place], [place] Patient/) [place], [facility] [address] [place], [place] [address] [place] [address] [place], [place] [phone] (Work) [phone] Social History Tobacco Use Types Packs/Day Years [...] you attend confucianism or Patient refused 2021 lutheran services? Do [...] She did end up being seeing in [place] and had a CT scan. I told her to followup with them and make sure that the images are sent here for Dr. Diehl to review. Caller was made aware of the two- to four-business day call turnaround time. Date last seen: 11/17/2021 Future appointment: None scheduled Dx: Stroke Cerebrovascular Accident Personal History Allyssa Amaya, Machine Stone Polisher 06/15/22 8:18 AM CDT documented in this encounter Plan of Treatment Not on filedocumented as of this encounter Visit Diagnoses Not on filedocumented in this encounter Additional Health Concerns Assessment Noted Time PHQ-9 Depression Total Score: 16 02/11/2021 12:00 AM C DT documented as of this encounter Care Teams Intern Retail Relationship Specialty Start Date End Date Elsewhere, Pcp PCP - General Family Medicine 12/25/21 documented as of this encounter
--- OUTSIDE RECORDS SUMMARY | 2022-08-01 07:40 | XMS_ITS | Encounter Summary ---
:1965 Author Organization [facility] Address [address] [place] [address] Care Team Providers Name Role Phone Elsewhere, Pcp Primary Care Provider Unavailable Reason for Visit Reason Comments Post-op Problem Encounter Details Date Type Department Care Team Description 06/03/2022 Clinical Communication Department of Cyrus Polk st-op Problem Orthopedic Surgery in [place] Souza [place], [place] [address] [place] [address] 200 [place] [phone] [phone] Social History Tobacco Use Types Packs/Day Years [...] attend oriental orthodox or Patient refused 2021 mormon services? Do [...] Cyrus Polk M.D. CT CT Job ID: [id number] documented in this encounter Miscellaneous Notes Telephone [...] bent forward again. Please call her at [phone] to discuss. documented in this encounter Plan of Treatment Not on filedocumented as of this encounter Visit Diagnoses Not on filedocumented in this encounter Additional Health Concerns Assessment Noted Time PHQ-9 Depression Total Score: 16 02/11/2021 12:00 AM C DT documented as of this encounter Care Teams Worldwide Chief Creative Officer Relationship Specialty Start Date End Date Elsewhere, Pcp PCP - General Family Medicine 12/25/21 documented as of this encounter
--- OUTSIDE RECORDS SUMMARY | 2022-08-01 07:40 | XMS_ITS | Encounter Summary ---
:1965 Author Organization [facility] Address [address] [place] [address] Care Team Providers Name Role Phone Elsewhere, [...] Embolism Right Vertebral Artery (HCC) M.DBritton [address] [place], [place] [address] Referral ID Status Reason Start Date Expiration Date Visits V isits Requested Authorized [id number] Authorized 06/17/2022 06/17/2023 1 1 Physical Therapy (Routine) - Authorized Specialty Diagnoses / Procedures Referred By Contact Refer red To Contact Road Passenger Firer Diagnoses Weakness General Pain Back Ataxia Repeated Falls Debility Primary Osteoarthritis Shoulder Left 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 Stroke Cerebrovascular Accident Personal History Fusion Cervical Spine Status Post Maira Haynes, Fibromyalgia Chronic Pain Syndrome 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 [address] [place] [id number] Weakness General (Primary Dx); 06/18/2022 Encounter [facility], Neftali García M.D. [address] [place] [phone] Incontinence Urinary; [facility], Saul Pollard M.D. [address] [place] [address] Pain Back; Domitilla Ataxia; Building, Third Repeated Fal ls; Floor Debility; [address] [facility] Primary Osteoarthritis Shoul marquis Left; [place], [place] Ataxia From [facility] Cerebrovascular Accident; [address] Stroke Cerebrovascular Accid ent Personal History; [phone] Fusion Cervical Spine Status Post; Fibromyalgia; Chronic [...] you attend hinduism or Patient refused 2021 jew services? Do [...] AM CDT DISCHARGE SUMMARY BRIEF OVERVIEW Hospital: [facility] Discharge Provider: Saul Pollard M.D. Primary Team: [facility] Medicine ([facility]) Primary Care Providers: Elsewhere, Pcp (General) No address on file Primary Care Provider Phone Number: None Primary Care Provider Fax Number: None Admission Date: 06/15/2022 Discharge Date: 06/18/2022 PRINCIPAL DIAGNOSIS Weakness General SECONDARY DIAGNOSES Principal Problem: Weakness General DISCHARGE DISPOSITION Home-Health Care [facility] [6] ACTIVE ISSUES REQUIRING FOLLOW UP Please [...] Scheduled Appointments 06/21/2022 11:00 AM PHR PHARMACIST [address] [place] [address] Pharmacy For appointment details refer to your Patient Appointment Guide. TEST RESULTS PENDING AT DISCHARGE Pending Labs Order Current Status Basic Metabolic Panel In process DETAILS OF HOSPITAL STAY REASON FOR ADMISSION Pain Back Weakness General Incontinence Urinary Ataxia Repeated Falls HOSPITAL COURSE Ms. Mosquera is hospitalized on [facility] Medicine ([facility]) for evaluation and management of Weakness [...] does not want to transition to a fci facility currently. She will be stable to discharge once her MRI of the brain and spine results are back and if they are not concerning. Saul Pollard M.D. Maira Haynes M.D. - 06/17/2022 2:07 PM CDT DISCHARGE SUMMARY BRIEF OVERVIEW Hospital: [facility] Discharge Provider: Saul Pollard M.D. Primary Team: [facility] Medicine 4 ([facility]) Primary Care Providers: Elsewhere, Pcp (General) [...] HOSPITAL COURSE Ms. Mosquera is hospitalized on [facility] Medicine 4 ([facility]) for evaluation and management of Weakness [...] AM CDT You were discharged from the [facility] Medicine 4 ([facility]) Service. Please identify this service name [...] needed, Assistance with walking and moving around [facility] [place] Discharge information provided on 06/16/2022 Contact information: [facility], [address], Tessie Arora - 06/17/2022 10:50 AM CDT Take a copy of this after visit summary to your appointment(s). REID NATH June 28, 2022 - Tuesday --10:00 AM - Hospital Follow-Up with Dr. Blackwell, primary care provider, at [facility] RECOMMENDATIONS: * * [facility] You may have outpatient appointments at [facility] that changed during your hospitalization. Refer to your [facility] Patient Visit Guide (PVG) for the most current schedule of appointments and detailed instructions of tests/procedures. Call [phone], if you did not receive an PVG or need to CANCEL any [facility] appointment(s). AttachmentsThe following attachments cannot be sent through Care Everywhere. Pregabalin (By mouth) (Omani)Furosemide (By mouth) (Omani)documented in this encounter Medications at Time of [...] THC multivit-min/iron/folic/ Take 1 tablet by 0 [id number] (HAIR, SKIN AND mouth daily. NAILS ADVANCED [...] Discussed patient's care with PT Outcome Measures [facility] Inpatient Short Form: Putting on and [...] Score: 44.27 Interpretation: Clinicians answer the -[facility] Inpatient Short Form based on observed [...] showering/bathing, Assistance with meal preparation, Assistance with financial market dealer, Assistance with shopping, Assistance with housekeeping, Assistance [...] Melton M.D. - 06/17/2022 8:00 PM CDT [facility] 4 ([facility]) PROGRESS NOTE SUBJECTIVE No acute events [...] / PLAN Ms. Mosquera is hospitalized on [facility] Medicine 4 ([facility]) for evaluation and management of Weakness [...] Right Lives With: Alone Receives Help From: golf range attendant, Family, Friend(s) (Son lives in apt next to her.) ADL Assistance: Required assistance ADL Assistance Comments: Gets help from [employer] MAK[employer] for her bath/shower 3x/week, and for her meals, RN once every 2 weeks. IADL/Homemaking Assistance: Required assistance IADL/Homemaking Assistance Comments: Gets help for housecleaning Driving: Does not drive Driving Comments: Friend assists Occupational Role: On disability Occupational Role Comments: Previously worked at a [employer] and [employer] Prior Mobility/Functional Transfers Level of Waite: Needs assistance Gait Devices/Wheelchair Used Comments: No AD since [facility]. Home Equipment Home Adaptive Equipment: Medical alert [...] Additional Staff Present During Session: RN and transportation maintenance supervisor Outcome Measures [facility] Inpatient Short Form: -[facility] Basic Mobility (V.2) How much help [...] steps with a railing?: A Lot -[facility] Basic Mobility (V.2) Raw Score: 21 -[facility] Basic Mobility (V.2) Standardized Score: 45.55 Interpretation: Clinicians answer the -[facility] Inpatient Short Form based on observed [...] patient wasunsure of a few. Consider outpatient [facility] pharmacy review Changes to medications anticipated at discharge:pending hospital course Marlene Wu Pharm.D., R.Ph. [phone] Marlene Wu PharmOj., R.Ph. - 06/16/2022 1:14 PM CDT Images from the original note were not included. Admission Medication History Note Medication list source: Patient + [facility] refill history (patient gets her scheduled medications [...] Take 150 mg by mouth every morning. ehcargpied-ezzcdmjuybriz-wnwg (ESGIC) 50-325-40 mg per tablet Past Month [...] 1 spray as needed. 5 mg THC multivit-min/iron/folic/ttx583 (HAIR, SKIN AND NAILS ADVANCED ORAL) Past [...] Cornelius). Per . Demetri, she lost her rotary slicing machine operator months ago so has not been able to charge the device. Device was interrogated, however, it was unable to connect to the engineering programmer, likely due to the battery being depleted per patient report. county program technician Mandy in room during interrogation and aware that device is off. Carley Mendez M.D. PGY-3, Anesthesiology and Perioperative Medicine documented in this encounter H&P Notes Renetta Michael M.D., M.S. - 06/15/2022 11:41 PM CDT Images from the original note were not included. [facility] Medicine 4 ([facility]) - ADMISSION NOTE Hospital Day 0 [...] but left AMA. She presented to the [place] ED 06/15. In the ED, she was [...] Urinalysis Case will be staffed with supervising animal nutrition consultant within 24 hours. Please page the [facility] Medicine 4 ([facility]) service pager at [phone] with questions or concerns. Renetta Michael M.D., M.S. PGY-3 [phone] Department of Internal Medicine Kiran Melton M.D. - 06/15/2022 12:05 AM CDT [facility] Medicine 4 ([facility]) Admission Note SUBJECTIVE CHIEF COMPLAINT Generalized [...] overflow incontinence. She was seen in the [place] ER a few days ago where they obtained a CT head without evidence for new infarct. She left against medical advice and came to [place] for re-evaluation. Upon arrival to the ED, [...] Take 150 mg by mouth every morning. ukzkiwkrnt-ohizayzdubecn-kqgi (ESGIC) 50-325-40 mg per tablet, Take 1 [...] 1 spray as needed. 5 mg THC multivit-min/iron/folic/ruw432 (HAIR, SKIN AND NAILS ADVANCED ORAL), Take [...] / PLAN Ms. Mosquera is hospitalized on [place] [address] ([facility]) for evaluation and management of Weakness [...] or life-threatening deterioration of the following conditions: PROTOTYPE ENGINEER failure or compromise Critical care was time [...] Grab Bars Support from family Home-Health Care [facility] OBJECTIVE Cbx Operator met with patient to discuss final discharge plans. Patient is agreeable to restart her home health nursing and FERMENTING CELLARS RECEIVER along with PT. Patient will have her friend transport her home today. ASSESSMENT / PLAN Assessment The patient appear to have insight into the patient's needs at this time and are planning appropriately for discharge needs. They report agreement with the below plan with no further questions at this time. Plan [facility] Georgette RN: [phone] Home health requesting an AVS discharge summary [...] Cris Landin R.N. 06/18/2022 IhClaire caballero O.T., [facility] - 06/17/2022 9:53 AM CDT Occupational Therapy [...] (Dependence) Uncomplicated (HCC) Nicotine Dependence Unspecified Other Terrazzo Journeyman Current Drug Therapy Direct Infection Of Left [...] Right Lives With: Alone Receives Help From: golf range attendant, Family, Friend(s) (Son lives in apt next to her.) ADL Assistance: Required assistance ADL Assistance Comments: Gets help from [employer]T MAKER for her bath/shower 3x/week, and for her meals, RN once every 2 weeks. IADL/Homemaking Assistance: Required assistance IADL/Homemaking Assistance Comments: Gets help for housecleaning Driving: Does not drive Driving Comments: Friend assists Occupational Role: On disability Occupational Role Comments: Previously worked at a [employer] and [employer] Prior Mobility/Functional Transfers Level of Waite: Needs assistance Previous Transfer/Mobility Assistance Comments: Patient [...] quite lethargic, yet impulsive required assistance to [facility] gown and shoulder immobilizer to maximize safety [...] and patient's status was discussed Outcome Measures [facility] Inpatient Short Form: Putting on and [...] Score: 32.03 Interpretation: Clinicians answer the -[facility] Inpatient Short Form based on observed [...] dressing, Assistance with meal preparation, Assistance with financial market dealer, Assistance with shopping, Assistance with housekeeping, Assistance [...] Planning Assessment SUBJECTIVE Assessment Information Referral Source: wall scraper Referral Reason: Discharge Planning Primary Language: Omani Pull Tab Dealer Services Used: No Person(s) present during interview: [...] Pleasant, Calm Communication: Talks, Understands speaking, Understands Omani Shopping: Needs assistance Transportation: Support from family Medication Management: Independent Housekeeping: Dependent Meal Prep: Needs assistance Managing Finances: Needs assistance Assistive Devices: Cane, Tub/shower chair/bench Services/Resources: Home health Agency Name: Home health reconnect Services Provided: fci twice monthly, FERMENTING CELLARS RECEIVER 3 times a week Baseline Services/Resources Primary care clinic and provider: ELSEWHERE, PCP Services/Resources: Home health Additional Resources: none Anticipated Needs Functional Status: Bathing, Dressing, Grooming/hygeine, Meal preparation, Medication set-up/administration, Housekeeping, Shopping, Transportation use (drive car, use taxi/bus) Assistive Devices: Tub/shower chair/bench, Grab bars - toilet, Grab bars - wall Services/Resources: Home health Agency Name: Home health reconnect Services Provided: fci twice monthly, FERMENTING CELLARS RECEIVER 3 times a week Anticipated Modifications to the Patient's Home: Grab Bars Transportation Needs: Support from family Does the patient need discharge transport arranged?: No Phone Number for Ride/Caregiver: son or daughter Anticipated Discharge Destination: Home-Health Care [facility] ASSESSMENT / PLAN Assessment: The wall scraper met with Angie Mosquera to discuss her current hospitalization and home goingneeds. The patient was unaccompanied. The patient was a reliable historian. The role of wall scraper was reviewed. The patient reviewed her prior level of care and support system. The patient receives support from her daughter, son, and home care staff . The patient described her living environment as a apartment with elevator access with level entry. Housekeeping, grocery shopping, meal prep, and other household responsibilities have previously been completed by patient and patient's son. wall scraper discussed the patient's potential needs at [facility] based on their home setting, previous [...] ADL's. She currently has home health through [facility] for fci twice monthly and [facility] 3 times a week for 1 1/2-2 [...] identified the following as their current vendor(s): [facility]. After reviewing the patient's chart and meeting with the patient, the wall scraper deemed the LACE+/readmission questions were appropriate. The [...] readmission could not have been prevented. The wall scraper will share this information with the care team. The patient reports understanding that she will dismiss from the hospital when medically stable. Pending hospital course and medical readiness, no barriers to dismissal have been identified at this time. Plan: The patient agrees with the following plan. Patient's anticipated discharge disposition is: Home with Home Healthcare Reconnected: [facility] Transportation upon dismissal will be provided by family--son or daughter . wall scraper recommended a shower seat, grab bars, home delivery of groceries, and reaching out to family, friends, and neighbors for assistance. wall scraper provided information regarding the dismissal process and the Advance Health Care Planning: Making Your Wishes Known [phone] booklet along with education on the benefits of completing an advance directive and resources that may assist them in this process. The patient sharedno further questions or concerns regarding advance directives. The patient appears to have an understanding of how to complete an advance directive and reported awareness of resources to assist them. wall scraper placed or requested the following hospital-based consult orders and/or referrals: PT/OT. wall scraper will continue to assess for homegoing needs with the interdisciplinary team. wall scraper encouraged the patient to reach out with any questions/concerns. Patient to discharge with home health care. [facility] Georgette RN: [phone] Home health requesting an AVS discharge summary [...] Prescriptions are provided by pain management through [facility] and her PCP Dr. Blackwell. [...] lumbosacral radicular pain, last reportedly revised at [facility] in 2019. The initial implant date is unknown. She had turned the device off for one her surgeries, then misplaced the engineering programmer. She has received a new engineering programmer, but has not gotten to using the new device. It is at her home. She thinks she has not used the SCS for several months. CURRENT MEDICATIONS: Acetaminophen 1 g four times a day Hozzctuxsgcbq-lckfuxnp-wjmrkazmq-Lipoderm cream twice a day Diclofenac 1% gel [...] mg by mouth every morning. Past Week pujgpktlba-eqvuettkzmuhf-bjwc (ESGIC) 50-325-40 mg per tablet Take 1 [...] as needed. 5 mg THC Past Week multivit-min/iron/folic/hzj269 (HAIR, SKIN AND NAILS ADVANCED ORAL) Take [...] Daily Given, 1,000 mg at 06/16 1345 captgwlufjpge-fhnmmgsv-hgcfwauna in Lipoderm 2%-0.5%-2% cream 1 g 1 [...] PRN Given, 100 mg at 06/16 921 azmvnuutks-jhqyszevutizl-dkuh 50-325-40 mg per tablet 1 tablet (ESGIC) [...] Depth/Rhythm: Regular (06/15/228 : Asia Cortez RBetsy, [facility]) PAIN PHYSICAL EXAM GENERAL: Pleasant, 57 [...] longitudinally with an outpatient pain provider at [facility]. Though she is on several PROTOTYPE ENGINEER acting medications that could increase the risk [...] organic cause for symptoms - work with [employer] to get her SCS therapy active in the outpatient setting Discussed with Pain Battery Mechanic Dr. Kaushik Gustafson. Thank you for allowing the Inpatient Pain Service to be a part of Angie Mosquera's care. The [facility] Inpatient Pain Service will sign off. Please page [phone] with questions. Anthony Shepard PAna, Juice.P.Jolanta., C.S.C.S. [...] (Dependence) Uncomplicated (HCC) Nicotine Dependence Unspecified Other Terrazzo Journeyman Current Drug Therapy Direct Infection Of Left [...] Procedure: ARTHROPLASTY REPLACEMENT TOTAL SHOULDER.; Surgeon: Cyrus oPlk M.D.; Location: [facility] OR BACK SURGERY 1998 [...] Right Lives With: Alone Receives Help From: golf range attendant, Family, Friend(s) (Son lives in apt next to her.) ADL Assistance: Required assistance ADL Assistance Comments: Gets help from [employer]ATH[employer] CARTRID[employer] BELT MAKER for her bath/shower 3x/week, and for her meals, RN once every 2 weeks. IADL/Homemaking Assistance: Required assistance IADL/Homemaking Assistance Comments: Gets help for housecleaning Driving: Does not drive Driving Comments: Friend assists Occupational Role: On disability Occupational Role Comments: Previously worked at a [employer] and [employer] Prior Mobility/Functional Transfers Level of Waite: Needs assistance Gait Devices/Wheelchair Used Comments: No AD since [facility]. Home Equipment Home Adaptive Equipment: Medical alert [...] eye protection, and gloves Outcome Measures -[facility] Inpatient Short Form: -[facility] Basic Mobility (V.2) How much help [...] steps with a railing?: A Lot AM-[facility] Basic Mobility (V.2) Raw Score: 20 AM-[facility] Basic Mobility (V.2) Standardized Score: 43.99 Interpretation: Clinicians answer the -[facility] Inpatient Short Form based on observed [...] independent with ADLs but does have a LEATH[employer] CARTRIDGE BELT MAKER 3 times per week to assist with [...] is currently below her functional baseline, declining fci facility but agreeable to home health PT [...] She now presented to the ED at [facility] for a second opinion. Review of Systems: [...] (WELLBUTRIN XL) 150 mg, oral, Every morning ohdwoyapui-wnqacjniiehwo-clum (ESGIC) 50-325-40 mg per tablet 1 tablet, [...] 1 spray as needed. 5 mg THC multivit-min/iron/folic/xws184 (HAIR, SKIN AND NAILS ADVANCED ORAL) 1 [...] PM CDT Care of patient transferred to [place] by Scooter Tony. Disposition pending MRI with [...] have chronic pain and she lost the rotary slicing machine operator for her [employer] SCS device several months ago. An MRI [...] relieve her symptoms she was seen in [place] ER few days ago and had no [...] over the past weeks was recently evaluated [facility] which she had a CT of her [...] as of 06/16/22 0848 TueJun 15, 2022 5528 Given patient's history exam I do have concern for possible underlying cauda equina given her recent falls increased back pain some lower leg weakness this could be secondary to other injury thus difficult to assess and urinary incontinence. Will page Neurology have them evaluate further. 3841 Patient continues to be a poor historian [...] medicine. 2025 Patient will go back to [place] awaiting a MRI and then disposition. 2025 [...] is a the provider I spoke with.Pager #[phone] Final Diagnoses: as of 06/16/22 0848 Weakness [...] a recent fall. Pt was seen in [place] yesterday. Ct scan performed. Pt is here for a second opinion. Elaine Winn R.N. 06/15/22 1108 documented in this encounter Miscellaneous Notes Hospital Course - Maira Haynes M.D. - 06/16/2022 7:30 AM CDT Ms. Mosquera is hospitalized on [facility] Medicine 4 ([facility]) for evaluation and management of Weakness [...] Referral Routine Weakness G eneral Ordered: PT ([facility]) Pain Back 06/17/2022 Ataxia Repeated Falls [...] CBC without Differential (06/18/2022 7:50 AM CDT) [facility] Method Time Signature Hemoglobin [...] Address City/State/ZIP Code Phon e Number [facility] [address] [place], [place] [address] [facility] [place] [address] [facility] [address] Basic Metabolic Panel [...] 06/18/2022 DTL Black/ mL/min/BSA 8:56 AM CDT Uzbek Comment: ----ADDITIONAL INFORMATION---- Estimated GFR calculated using [...] Address City/State/ZIP Code Phon e Number [facility] - [address] [place], [place] [address] [facility] [place] [address] [facility] [address] [facility] MR Thoracic Spine without IV Contrast (06/17/2022 [...] 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 The nenana intraocular lenses are absent . 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 The nenana intraocular lenses are absent . 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 The nenana intraocular lenses are absent . 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 The nenana intraocular lenses are absent . 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 The nenana intraocular lenses are absent . 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 The nenana intraocular lenses are absent . Mild mucosal [...] CBC without Differential (06/17/2022 8:00 AM CDT) [facility] gist Method Time Signature Hemoglobin 10.5 (L) [...] Address City/State/ZIP Code Phon e Number [facility] - [address] [place], [place] [address] [facility] D[place], [place] [address] [facility] 200 [facility] Basic Metabolic Panel (06/17/2022 8:00 AM [...] 06/17/2022 DTL Black/ mL/min/BSA 9:34 AM CDT Uzbek Comment: ----ADDITIONAL INFORMATION---- Estimated GFR calculated using [...] M.D. LAB BLOOD ADD-ON Performing Organization Address City/[facility]/ZIP Code Phon e Number [facility] - 200 [place], [place] [address] [place] [id number] [place] [address] (ABNORMAL) Dipstick, Urine (06/16/2022 9:32 AM CDT) [facility] Method Time Signature Hemoglobin, [...] M.D. LAB URINE ORDERABLES Performing Organization Address City/[facility]/ZIP Code Phon e Number [facility] [id number] [place] [address] Osmolality, Urine (06/16/2022 9:32 AM CDT) P athologist Signature Osmolality, U 745 150 - 1150 06/16/2022 DTL mOsm/kg 11:17 AM CDT Specimen Anatomical Collection Method Collection Time Receive d Time (Source) Location / / Volume Laterality Urine 06/16/2022 9:32 AM 2 CDT 10:39 AM CDT Maira Haynes M.D. LAB URINE ORDERABLES Performing Organization Address City/[facility]/ZIP [facility] Phon e Number [facility] - [address] [place] [address] 05 [place] [address] [facility] 200 [facility] pH, Random, Urine (06/16/2022 9:32 AM CDT) P athologist Signature pH, Random, U 5.0 4.5 - 8.0 06/16/2022 DTL 11:17 AM CDT Specimen Anatomical Collection Method Collection Time Receive d Time (Source) Location / / Volume Laterality Urine 06/16/2022 9:32 AM 2 CDT 10:39 AM CDT Maira Haynes M.D. LAB URINE ORDERABLES Performing Organization Address City/[facility] Code Phon e Number [facility] - [address] (ABNORMAL) Microscopic Manual (06/16/2022 9:32 AM [...] M.D. LAB URINE ORDERABLES Performing Organization Address City/[facility]/ZIP Code Phon e Number [facility] - 200 [place], [place] [address] [address] [facility] [address] (ABNORMAL) Urinalysis with Microscopic: Urine, Catheter [...] M.D. LAB URINE ORDERABLES Performing Organization Address City/State/[facility] Code Phon e Number [facility] - 200 [place], [place] [address] [facility] [place] [address] [facility] 200 [facility] Vitamin B12 Assay (06/16/2022 7:31 AM [...] M.D. LAB BLOOD ADD-ON Performing Organization Address City/[facility] Phon e Number [facility] - [address] [place] [address] Hemoglobin A1c (06/16/2022 7:31 AM CDT) P athologist Signature Hemoglobin A1c, 4.9 4.0 - 5.6 06/16/2022 DTL B % 8:13 AM CDT Specimen Anatomical Collection Method Collection Time Receive d Time (Source) Location / / Volume Laterality Blood (Blood, 06/16/2022 7:31 AM 06/16/20 7:51 Venous) CDT AM CDT Kiran Melton M.D. LAB BLOOD ADD-ON Performing Organization Address [facility] Phon e Number [facility] - [address] (ABNORMAL) CBC without Differential (06/16/2022 7:31 [...] Address City/State/ZIP Code Phon e Number [facility] - 200 [place], [place] [address] [facility] [place] [address] [facility] [address] (ABNORMAL) Comprehensive Metabolic [...] 06/16/2022 DTL Black/ mL/min/BSA 8:22 AM CDT Uzbek Comment: ----ADDITIONAL INFORMATION---- Estimated GFR calculated using [...] Address City/State/ZIP Code Phon e Number [facility] - [address] [place] [address] [facility] [place] [address] [facility] 200 [facility] Critical Care (06/15/2022 8:47 PM [...] life-threatening deterioration of the fo llowing conditions: PROTOTYPE ENGINEER failure or compromise Critical care was time spent personally by me on the following activities: ordering and review of radiographic stud ies, ordering and review of laboratory studies, discussions with [facility] provider, discussions with consultants, examination of patient, rev iew of old charts and re-evaluation of patient's condition Scooter Tony APRN, C.N.P. PROCEDURE/MINOR SURGICA L ORDERABLES SARS Coronavirus 2, PCR Rapid, V Symptomatic (06/15/2022 7:51 PM CDT) [facility] Method Time Signature SARS CoV-2, Undetected Undetected 06/15/2022 [facility] PCR, Rapid, V 8:23 PM CDT Comment: ----ADDITIONAL INFORMATION---- This RT-PCR test was performed using the Tita SARS-CoV-2 and Influenza A/B Reagent assay from [employer], which has received Emergency Use Authori zation(EUA) by the U.S. Food and Drug Administration . Fact sheets for this Emergency Use Autho rization (EUA) assay can be found at the following link s: For Healthcare Providers: https://www.fda.gov/media/520561/downloa d For Patients: https://www.fda.gov/media/924902/downloa d SARS Coronavirus 2, Source, Rapid Swab, Nasopharynx 06/15/2022 7:58 PM CDT [facility] Specimen Anatomical Collection Method Collection Time Receive d Time (Source) Location / / Volume Laterality Varies 06/15/2022 7:51 PM 7:58 (Nasopharynx) CDT PM CDT Scooter Tony APRN, Ricky.N.P. LAB MICROBIOLOGY - GENE RAL ORDERABLES Performing Organization Address City/State/ZIP Code Phon e Number [facility] - [address] [place] [address] [address] [place] [address] [facility] 200 [facility] CT Head Neck Angiogram with IV Contrast [...] 2H/6H, 5th Gen (06/15/2022 2:48 PM CDT) [facility] Method Time Signature Troponin T, 2 <6 [...] 3:21 Venous) CDT PM CDT Narrative [facility] - 06/15/2022 3:54 PM CDT Specimen Information: Specimen ID: [id number] Specimen Type: Blood Specimen Collection Start Date: 06/15/20 ??2:48 PM Specimen Received Date: 06/15/2022 ??3:2 1 PM Specimen ID: [id number] Specimen Type: Blood Specimen Collection Start Date: 06/15/20 ??3:53 PM Specimen Received Date: 06/15/2022 ??3:5 3 PM Demarcus Ernst M.D. LAB BLOOD TROPONIN Performing Organization Address City/State/ZIP Code Phon e Number [facility] - [address] [place] [address] [address] [place] [address] [facility] 200 [facility] DX Hip And Pelvis Left 2-3 [...] Signature Ventricular Rate 58 BPM MUSE ECG/Min DE Interval 154 ms MUSE QRSD Interval 102 ms MUSE QT Interval 442 ms MUSE QTC Interval 433 ms MUSE P [place] 48 degrees MUSE R [place] -1 degrees MUSE T Wave [place] 38 degrees MUSE Specimen Anatomical Collection Method [...] M.D. LAB BLOOD TROPONIN Performing Organization Address City/[facility] Phon e Number [facility] - [address] [place] [address] [facility] STMA [address] (ABNORMAL) Hepatic Function Panel (06/15/2022 12:37 [...] M.D. LAB BLOOD ADD-ON Performing Organization Address City/[facility] Phon e Number [facility] - [address] [place] [address] [address] [facility] [place], [place] [phone] [place] [address] [facility] Basic Metabolic Panel (06/15/2022 12:36 PM CDT) [...] CDT eGFR-Black/Afric >90 >=60 06/15/2022 [facility] an Uzbek mL/min/BSA 1:34 PM CDT Comment: ----ADDITIONAL INFORMATION---- [...] City/State/ZIP Code Phon e Number [facility] - [facility] [place] [address] [place], [place] [address] [facility] [place] [address] [facility] [address] (ABNORMAL) CBC with Differential, Blood (06/15/2022 12:36 PM CDT) [facility] Method Time Signature Hemoglobin 10.4 (L) 11.6 [...] Address City/State/ZIP Code Phon e Number [facility] - 200 [place], [place] [address] [address] [place] [address] [address] [facility] 200 [facility] Prothrombin Time (PT) (06/15/2022 12:34 PM CDT) P athologist Signature Prothrombin 10.2 9.4 - 12.5 06/15/2022 [facility] Time, P sec 1:10 PM CDT INR 0.9 0.9 - 1.1 06/15/2022 [facility] 1:10 PM CDT Comment: ----ADDITIONAL INFORMATION---- Standard [...] Address City/State/ZIP Code Phon e Number [facility] - 200 [place], [place] [address] [address] [place] [address] Interpretation of Outside CT Spine (06/15/2022 [...] Modality Head, Neuroradiology RST LOS, Neuroradiology [facility], N/A Computed Tomography Neuroradiology [facility], Other Specimen (Source) Anatomical Collection Method Collection [...] Given 06/17/2022 9:20 AM CDT 1,000 mg fhtozpcmfbesb-fekjfyft-oltkrfzdl in Lipoderm Given 06/18/2022 10 :23 AM [...] Given 06/16/2022 9:16 AM CDT 150 mg xhzghejafx-eiarjovpdhxht-rnyn 50-325-40 mg Given 06/17 6:03 PM CDT [...] 2057 (Given - Provider: Erwin Tello RBrittonNBritton) iztvozgfdblay-zagwrmmc-htqflxjxs in Lipoderm 2%-0.5%-2 % cream 1 g [...] not available) 1024 (Not Given - Provider: aRquel arguelles RBetsy - Reason: Patient/family refused) 2 [...] Erwin Tello R.N.) 101 (Given - Provider: Raquel Guajardo R.N.) 300 mg, oral, 2 times [...] Do NOT crush, chew or open capsule. jxkxbdbpmk-yoptzdfevmmfw-swav 50-325-40 mg per tablet 1 tablet (ESGIC) 1359 (Given - Provider: Gini Newberry R.N.)2108 (Given - Provider: Rufina Huasin R.N.) 1038 (Given - Provider: Kennedi Cabrera APRN, PROTOTYPE ENGINEER, M.S.N.)1803 (Given - Provider: Gini Newberry R.N.) 1 tablet, oral, Every 6 hours PRN, migraine, Starting on 05/29 at 0107 diphenhydrAMINE-zinc acetate 1 % cream 1 application ( BENADRYL) 1431 (Given - Provider: Gini Newberry R.N.) 1 application, topical, 4 times daily DE N, itching, Starting on Tue06/16/22 at 0306 meclizine tablet 25 mg (ANTIVERT) 0920 (Given - Provid er: Gini Newberry R.N.) 0920 (Given - Provider: Gini Newberry R.N.)220 (Given - Provider: Erwin Tello R.N.) 0515 (Given - Provider: Ewrin gimenez RBetsy) 25 mg, oral, Every 6 [...] COMPLETED) 1642 (Given - Provider: Sapphire Verma, BENCH PRESS OPERATOR, CLEANING TEAM MEMBER, DNAP) 1 patch, transdermal, Administer over 72 [...] as of this encounter Care Teams Assistant Banquet Manager Relationship Specialty Start Date End Date Elsewhere, Pcp PCP - General Family Medicine 12/25/21 documented as of this encounter
--- OUTSIDE RECORDS SUMMARY | 2022-08-01 07:40 | XMS_ITS | Encounter Summary ---
:1965 Author Organization [facility] Address [address] [place] [address] Care Team Providers Name Role Phone Elsewhere, Pcp Primary Care Provider Unavailable Encounter Details Date Type Department Care Team Description 06/15/2022 Ancillary Procedure Department of Demarcus Ernst, Radiology in [place], [place] [address] [place] [address] [phone] (Wo rk) Social History Tobacco Use Types [...] you attend taoist or Patient refused 2021 bahai services? Do [...] documented as of this encounter Care Teams Real Estate Agency Licensee Relationship Specialty Start Date End Date Elsewhere, Pcp PCP - General Family Medicine 12/25/21 documented as of this encounter
--- OUTSIDE RECORDS SUMMARY | 2022-08-01 07:40 | XMS_ITS | Encounter Summary ---
:1965 Author Organization [facility] Address 200 [place] [address] Care Team Providers Name Role Phone Elsewhere, Pcp Primary Care Provider Unavailable Encounter Details Date Type Department Care Team Description 06/17/2022 Orders Only RST HIM Latrice, Chronic Pain Syndrome (Prima ry Dx); 200 [facility] Lilian Hughes Transient Ischemic Attack; [place], [place] 200 [facility] Fibromyalgia [phone] [place] [address] Social History Tobacco Use Types Packs/Day Years [...] you attend uatsdin or Patient refused 2021 holiness services? Do [...] documented as of this encounter Care Teams Student Ambassador Relationship Specialty Start Date End Date Elsewhere, Pcp PCP - General Family Medicine 12/25/21 documented as of this encounter
--- OUTSIDE RECORDS SUMMARY | 2022-08-01 07:40 | XMS_ITS | Encounter Summary ---
:1965 Author Organization [facility] Address [address] [place] [address] Care Team Providers Name Role Phone Elsewhere, Pcp Primary Care Provider Unavailable Encounter Details Date Type Department Care Team Description 05/18/2022 Ancillary Procedure Department of Anesthesiology, [place] Social History Tobacco Use Types Packs/Day Years [...] you attend yazidism or Patient refused 2021 gnosticist services? Do [...] documented as of this encounter Care Teams Contractor Buyer Relationship Specialty Start Date End Date Elsewhere, Pcp PCP - General Family Medicine 12/25/21 documented as of this encounter
--- OUTSIDE RECORDS SUMMARY | 2022-08-01 07:40 | XMS_ITS | Encounter Summary ---
:1965 Author Organization [facility] Address [address] [place] [address] Care Team Providers Name Role Phone Elsewhere, Pcp Primary Care Provider Unavailable Encounter Details Date Type Department Care Team Description 06/17/2022 Anesthesia Event Department of Radiology, Shantell Verma APRN, GINETTE, DNAP [address] [place] [address] [phone] [facility] bunch M.D. [address] [place] [phone] [place] [id number] [place] [phone] Anesthesia Record Procedure Summary Procedure Name Responsible Anesthesia Start Anesthesia Stop Time Anesthesiologist Time MR BRAIN WITHOUT IV Sapphire Verma APRN, ASSISTED LIVING EXECUTIVE DIRECTOR, 06/17/22 1446 1702 CONTRAST DNAP Events Date [...] h andoff to the receiving staff during [facility] ch we 1. Identified the patient [...] over 3 days 1 patch (TRANSDERM S COMPUTER ASSISTANT) 1 patch Lactated Ringers Free Drip 850 [...] you attend pentecostalism or Patient refused 2021 roman catholic services? [...] Notes Anesthesia Postprocedure Evaluation - Maritza Friend, PLAN EXAMINER, ASSISTED LIVING EXECUTIVE DIRECTOR, DNAP - 06/17/2022 5:09 PM CDT Patient: Angie Mosquera Procedure Summary Date: 06/17/22 Room / Location: Department of Radiology, [facility], in [place], [place] Anesthesia Start: 1446 Anesthesia Stop: 170 [...] ETT location: oral VL device: glide scope [place] scope blade size: 3 Adult tube size: [...] equina r/o compression Location: Department of Radiology, [facility], in [place], [place] Pertinent components of the patient's history [...] Vertebral Artery (HCC) (+) Dissection Vertebral Artery ([facility]) (+) Transient Ischemic Attack MSK/RHEUM (+) [...] with patient /legal guardian or through an storeroom attendant. Risks/Benefits/Alternatives of Blood transfusion discussed with patient [...] ETT location: oral VL device: glide scope [place] scope blade size: 3 Adult tube size: [...] ?? Airway event: no complications Sapphire Luci PLAN EXAMINER, ASSISTED LIVING EXECUTIVE DIRECTOR, DNAP ANESTHESIA ORDERABLES documented in this encounter [...] as of this encounter Care Teams Animal Ecologist Relationship Specialty Start Date End Date Elsewhere, Pcp PCP - General Family Medicine 12/25/21 documented as of this encounter
--- OUTSIDE RECORDS SUMMARY | 2022-08-01 07:40 | XMS_ITS | Encounter Summary ---
:1965 Author Organization [facility] Address [address] [place] [address] Care Team Providers Name Role Phone Elsewhere, Pcp Primary Care Provider Unavailable Encounter Details Date Type Department Care Team Description 05/18/2022 - Hospital Encounter [facility] Mable Polk In fection Of Left Shoulder In Infectious And Parasitic Diseases Classified Elsewhere (HCC) (Primary Dx); 05/20/2022 Hospital, [facility] Cyrus Souza M.D. Shoulder Joint Disorder Left; [place], [facility] [address] [facility] Pain Shoulder Left; [address], [address] [place], [place] Primary Os teoarthritis Shoulder Left Floor [phone] [address] [facility] [phone] [place], [place] (Work) [phone] Social History Tobacco Use [...] you attend congregational or Patient refused 2021 christian services? Do [...] AM CDT DISCHARGE SUMMARY BRIEF OVERVIEW Hospital: [facility] Discharge Provider: Cyrus Polk M.D. Primary Team: [...] RST ROEI OR DISCHARGE DISPOSITION Home-Health Care [facility] [6] ACTIVE ISSUES REQUIRING FOLLOW UP This document serves as a prescription to continue physical therapy, medications, and labs or x-raysif ordered/required. If you have any questions or concerns about surgery or upcoming appointments, please do not hesitateto contact Dr. Polk's office at [phone] during regular business hours (8am-5pm M-F). For emergencies on the weekend or after hours, you may contact Dr. Polk's service via the [facility] stencil machine operator at [phone]. Details for your 6 week follow-up appointment [...] to: Cyrus Polk MD Dept of Orthopedics [address], [address] None OUTPATIENT FOLLOW UP For appointment details [...] M.D.Wasserburger, Jory N, M.D.Markos, James R, M.D. [facility] OR Angie Mosquera was taken [...] THC multivit-min/iron/folic/ Take 1 tablet by 0 ass822 (HAIR, SKIN AND mouth daily. NAILS ADVANCED [...] mask during therapy session: yes Outcome Measures -[facility] Inpatient Short Form: -[facility] Basic Mobility (V.2) How much help [...] 3-5 steps with a railing?: A Little AM-[facility] Basic Mobility (V.2) Raw Score: 18 AM-[facility] Basic Mobility (V.2) Standardized Score: 41.05 Interpretation: Clinicians answer the -[facility] Inpatient Short Form based on observed [...] 6 pm, please page Jam service at [phone] For urgent matters from 6 pm until 6 am, please page [facility] at [facility] [phone] Jane Nguyen PharmBrittonD., R.Ph. - 05/19/2022 8:12 [...] at this time. Jane Nguyen Pharm.D., R.Ph. [phone] Kaushik Cadena M.D. - 05/19/2022 7:34 AM [...] 6 pm, please page Jam service at [phone] For urgent matters from 6 pm until 6 am, please page Ortho [facility] at [facility] [place] [phone] Paco Valentine - 05/18/2022 9:47 AM CDT Encounter: AM Admit Deanna Tradition: No christian affiliation. Ms. Mosquera did not express any spiritual needs at this time. Plan: Will remain available for spiritual care as needed or requested. [facility]pl[facility] [phone] ([facility]). Rodrigo Preston, Mynor, R.Ph. - 05/18/2022 9:17 [...] Take 150 mg by mouth every morning. iznsbpzepj-yalebedebjtml-dvhg (ESGIC) 50-325-40 mg per tablet Past Week [...] 1 spray as needed. 5 mg THC multivit-min/iron/folic/gni994 (HAIR, SKIN AND NAILS ADVANCED ORAL) Past [...] (HCC) ??? Nicotine Dependence Unspecified ??? Other Nursing Home Current Drug Therapy ??? Direct Infection [...] Profile Lives With: Alone Receives Help From: car attendant, Family, Friend(s) ADL Assistance: Required assistance ADL Assistance Comments: Gets help from [employer] SETTER for her bath/shower 3x/week, and for her meals IADL/Homemaking Assistance: Required assistance IADL/Homemaking Assistance Comments: Gets help for housecleaning Driving: Does not drive Driving Comments: takes her cane and medical alert with her. Occupational Role: On disability Occupational Role Comments: Previously worked at a [employer] Prior Mobility/Functional Transfers Level of Carlton: Needs assistance Previous Transfer/Mobility Assistance Comments: Patient [...] mask during therapy session: yes Outcome Measures AM-[facility] Inpatient Short Form: AM-[facility] Basic Mobility [...] 3-5 steps with a railing?: A Little -[facility] Basic Mobility (V.2) Raw Score: 18 -[facility] Basic Mobility (V.2) Standardized Score: 41.05 Interpretation: Clinicians answer the -[facility] Inpatient Short Form based on observed [...] Nurse Referral Reason: Discharge Planning Primary Language: Khmer Solid Waste Disposal Manager Services Used: No Person(s) present during interview: Person(s) Present During Interview: patient History of Present Illness #1 Primary Osteoarthritis Shoulder Left Social History Support System: children, registered nurse hh case manager/drug abuse social worker, friends/neighbors and home care staff [...] Calm, Oriented Communication: Talks, Understands speaking, Understands Khmer Shopping: Needs assistance Transportation: Support from family Medication Management: Needs assistance Housekeeping: Needs assistance Meal Prep: Needs assistance Managing Finances: Independent Assistive Devices: Grab bars - wall, Eyeglasses Services/Resources: Other (comment) Agency Name: [facility] Services Provided: STEAM SETTER services 3x/week, nurse visits every other week Baseline Services/Resources Primary care clinic and provider: [facility] Phone: Fax: Anticipated Needs Functional Status: Transfer to/from bed, chair, etc., Bathing, Dressing, Grooming/hygeine, Housekeeping, Shopping, Meal preparation, Mobility, Medication set-up/administration, Transportation use (drive car, use taxi/bus) Services/Resources: Other (comment) Agency Name: [facility] Services Provided: STEAM SETTER services 3x/week, nurse visits every other week Transportation Needs: Support from family Does the patient need discharge transport arranged?: No Ride and Caregiver Arranged: Yes Anticipated Discharge Destination: Home-Health Care [facility] ASSESSMENT / PLAN Assessment: The back sewer met with Angie Mosquera to discuss her current hospitalization and home goingneeds. The patient was unaccompanied. The patient was a reliable historian. The role of back sewer was reviewed. The patient reviewed her prior level of care and support system. The patient receives support from her son, friends and home care staff. Patient reported her son lives in the same apartment as her. She also stated getting STEAM SETTER services 3x/week and a nurse visits her every other week. The patient described her living environment as a two bedroom apartment. Housekeeping, grocery shopping, meal prep, and other household responsibilities have previously been completed by patient, patient's son and patient's caregiver(s). back sewer discussed the patient's potential needs at [facility] based on their home setting, previous needs and responsibilities, homebound status, and relevantassessments with the patient. The patient will be safe and supported to return home with [facility] or previous services noted above when medically ready. Support will be provided by son, friends and home care staff. The patient demonstrated understanding when discussing her home going plans and anticipated needs. At this time, the care team anticipates the patient requires the following service(s) to be reconnected: home healthcare. The patient identified the following as their current vendor(s): [facility]. During this visit patient verbalized she is hoping to increase her STEAM SETTER hours and also inq uired about getting a scooter to assist in her mobility. Patient went on to share she is unstable attimes due to her stroke history. She thought perhaps her neurology doctor would be able to help her get a scooter. RN ROWAN recommended she follow up with the [facility] in regards to wanting more STEAM SETTER hours. She was also recommended to follow up with her primary care provider to provide durable medical equipment justification for a scooter, as she is currently hospitalized for orthopedic surgery. Patient verbalized understanding. Patient informed RN CM would be reconnecting her STEAM SETTER services and nurse visits with [facility]. Patient agreeable to RN CM completing this and even provided RN CM the name and contact of her STEAM SETTER and RN. After reviewing the patient's chart and meeting with the patient, the back sewer deemed the LACE+/readmission questions were not necessary. The patient reports understanding that she will dismiss from the hospital when medically stable. Pending hospital course and medical readiness, no barriers to dismissal have been identified at this time. Plan: Patient to discharge with home health care. [facility] Contact: RADHA Palomino ATTN: Georgette NURSING: [...] directive. PRIMARY SERVICE: - Please provide a non-[facility] health order for resumption of previous services [...] dismissal will be provided by family. 3. back sewer recommended reaching out to family, friends, and neighbors for assistance. 4. back sewer provided information regarding the dismissal process. 5. back sewer placed or requested the following hospital-based consult orders and/or referrals:None. 6. back sewer will continue to assess for homegoing needs with the interdisciplinary team. 7. back sewer encouraged the patient to reach out with [...] falls. Patient will discharge to home with [facility] reconnect. Identify possible barriers to meeting goals/advancing plan of care: none End of Shift Summary: Patient stayed on schedule with prn pain meds (Tramadol and oxycodone) throughout the shift. Encouraged using ice packs to help with pain and swelling. Patient's primapore dressing was changed to Aquacell AG and is clean, dry and intact. 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 Patient expects RN from [facility] to visit on Tuesday, May 24. Patient's friend will transport home. Medications including: oxycodone and tramadol were picked up [facility]. documented in this encounter OR Notes Op Note - Cyrus Polk M.D. - 05/18/2022 5:54 PM CDT STAFF: Cyrus Polk M.D. RESIDENT: Jenna Zaldivar M.D. PRE-OPERATIVE DIAGNOSIS Left dislocated reverse arthroplasty. POST-OPERATIVE DIAGNOSIS Left dislocated reverse arthroplasty. A specimen preparation assistant actively participated and was necessary for [...] glenosphere, placement new humeral stem and tray, [id number] Cyrus Polk M.D. CT CT Job ID: [id number] documented in this encounter Miscellaneous Notes Hospital Course - Kaushik Cadena M.D. - 05/19/2022 12:18 PM CDT Surgery Information This Encounter Past Procedures (05/19/2021 to Today) Date Procedures Providers Location 05/18/2022 ARTHROPLASTY REPLACEMENT TOTAL SHOULDER. Cyrus Polk M.D.Wasserburger, Jory N, M.D.Markos, James R, M.D. [facility] OR Angie Mosquera was taken to the [...] with Differential, Blood (05/20/2022 3:43 AM CDT) [facility] Method Time Signature Hemoglobin 8.4 (L) [...] City/State/ZIP Code Phon e Number [facility] - [address] [place], [place] [address] [facility] [place] [address] [facility] [address] [facility] (ABNORMAL) CBC with Differential, Blood (05/19/2022 3:26 AM CDT) [facility] gist Method Time Signature Hemoglobin 7.6 [...] City/State/ZIP Code Phon e Number [facility] - [address] [place], [place] [address] [facility] [place] [address] [facility] [address] [facility] (ABNORMAL) Basic Metabolic Panel (05/19/2022 3:26 [...] 05/19/2022 DTL Black/ mL/min/BSA 4:38 AM CDT Palau[place] Comment: ----ADDITIONAL INFORMATION---- Estimated GFR calculated [...] City/State/ZIP Code Phon e Number [facility] - [address] [place], [place] [address] [facility] [place] [address] [facility] [address] DX [...] postoperative purposes. Jenna NIELSON DIAGNOSTIC IMAGING PROCE [facility] Surgical Pathology, Frozen Lab (05/18/2022 1:04 PM CDT) Component Value Ref Test Analysis Performed At [facility] Range Method Time Signature 05/20/2022 METH [...] for frozen and permanent sections. ??Grossed by Nkiki Ramirez CDT Distad. Block Summary A Left [...] City/State/ZIP Code Phon e Number [facility] - [address] [place], [place] [address] [facility] [place] [place] [address] [facility] [address] Bacteria Cult, Aerobe / Anaerobe+Susc (05/18/2022 1:03 PM CDT) [facility] gist Method Time Signature Bacteria Cult, No growth 06/01/2022 DTL Aerobe/Anaerob after 14 6:02 PM CDT e+Susc days of incubation. Specimen Anatomical Collection Method Collection Time Receive d Time (Source) Location / / Volume Laterality Shoulder, Left 05/18/2022 1:03 PM 022 5:21 CDT PM CDT Comment: Specimen Source Site: Tissue #1 Narrative [facility] - [facility] - 06/01/2022 6:02 PM CDT Bacterial Culture: Placed in Bactec aero bic and Bactec anaerobic bottles Cyrus Polk M.D. LAB MICROBIOLOGY - GENERAL O MARY Performing Organization Address City/[facility]/ZIP Code Phon e Number [facility] - [address] [place], [place] [address] [facility] [place] [address] [facility] Bacteria Cult, Aerobe / Anaerobe+Susc (05/18/2022 1:03 PM CDT) [facility] Method Time Signature Bacteria Cult, No growth 06/01/2022 DTL Aerobe/Anaerob after 14 6:02 PM CDT e+Susc days of incubation. Specimen Anatomical Collection Method Collection Time Receive d Time (Source) Location / / Volume Laterality Shoulder, Left 05/18/2022 1:03 PM 022 5:12 CDT PM CDT Comment: Specimen Source Site: Tissue #3 Narrative [facility] - 06/01/2022 6:02 PM CDT Bacterial Culture: Placed in Bactec aero bic and Bactec anaerobic bottles Cyrus Polk M.D. LAB MICROBIOLOGY - GENERAL O MARY Performing Organization Address City/[facility]/ZIP Code Phon e Number [facility] - [address] [place], [place] [address] [facility] [place] [address] Bacteria Cult, Aerobe / Anaerobe+Susc (05/18/2022 1:03 PM CDT) [facility] Method Time Signature Bacteria Cult, No growth 06/01/2022 DTL Aerobe/Anaerob after 14 6:02 PM CDT e+Susc days of incubation. Specimen Anatomical Collection Method Collection Time Receive d Time (Source) Location / / Volume Laterality Shoulder, Left 05/18/2022 1:03 PM 022 5:07 CDT PM CDT Comment: Specimen Source Site: Tissue #2 Narrative [facility] - 06/01/2022 6:02 PM CDT Bacterial Culture: Placed in Bactec aero bic and Bactec anaerobic bottles Cyrus Polk M.D. LAB MICROBIOLOGY - GENERAL O MARY Performing Organization Address City/[facility]/ZIP Code Phon e Number [facility] - [address] [place], [place] [address] [facility] [place] [address] [facility] [address] [facility] documented in this encounter Visit Diagnoses [...] 05/19/2022 05/20/2022 acetaminophen tablet 1,000 mg (TYLENOL) 7014 (Given - Provider: Corrie Toscano RBrittonN.)2738 (Given - Provider: Catalina B Mccloud, R.N.) [...] R.N.) 337 (New Bag - Provider: Catalina claudoi RBetsy) 2 g, intravenous, at 200 mL/hr, [...] 1240 (Given - Provider: Ihsan Townsend APRN, TOOL LIAISON) 2,000 mg (rounded from 1,652.5 mg = [...] 1240 (Given - Provider: Ihsan Townsend APRN, TOOL LIAISON) 1,000 mg (1 g), intravenous, at 300 [...] Bettie Macias RBetsy) 0848 (Given - Provider: Isarua Vu RBetsy)2224 (Given - Provider: Leticia Thorne, [...] Mccloud R.N.) 092 1 (Given - Provider: sIaura Vu R.N.) 25 mg, oral, Every 6 [...] R.N.) 1502 (Given - Provider: Kiana Ramírez RBrittonNBritton) 4 mg, intravenous, Every 6 hours [...] over 3 days 1 patch (TRANSDERM S TWISTING FRAME CHANGER) (CANCELED) 1118 (Medication Applied - Provider: Cristy [...] documented as of this encounter Care Teams Sales Route Driver Relationship Specialty Start Date End Date Elsewhere, Pcp PCP - General Family Medicine 12/25/21 documented as of this encounter
--- OUTSIDE RECORDS SUMMARY | 2022-08-01 07:41 | XMS_ITS | Encounter Summary ---
:1965 Author Organization [facility] Address [address] [place] [address] Care Team Providers Name Role Phone Elsewhere, Pcp Primary Care Provider Unavailable Encounter Details Date Type Department Care Team Description 04/14/2022 Hospital Encounter Department of Alfredo Herrera Total Shoulder Replacement Status Post Left; Laboratory Medicine A, [facility]. Painful Total Joint Arthroplasty Initial (HCC) and Pathology, [address] [place] [address], in [place] [phone] [place] [phone] [place] [address] (Work) [place], [place] [phone] (Fax) [phone] Social History Tobacco Use Types Packs/Day Years [...] THC multivit-min/iron/folic/ Take 1 tablet by 0 [id number] (HAIR, SKIN AND mouth daily. NAILS ADVANCED [...] Initial proc edure are in ([facility]) the results section. C-REACTIVE PROTEIN Routine [...] Kamara LAB BLOOD ADD-ON Performing Organization Address City/State/[facility] Code Phon e Number [facility] - [address] [place], [place] [address] [facility] [place] [place] [address] [facility] 200 [facility] (ABNORMAL) CBC without Differential (04/14/2022 10:42 [...] [facility] [address] [place], [place] [address] [facility] [place] [address] [facility] [address] documented in this encounter Visit Diagnoses Diagnosis Arthroplasty Total Shoulder Replacement Status Post Left Painful Total Joint Arthroplasty Initial (HCC) documented in this encounter Additional Health Concerns Assessment Noted Time PHQ-9 Depression Total Score: 16 02/11/2021 12:00 AM C DT documented as of this encounter Care Teams Senior Writer Relationship Specialty Start Date End Date Elsewhere, Pcp PCP - General Family Medicine 12/25/21 documented as of this encounter
--- OUTSIDE RECORDS SUMMARY | 2022-08-01 07:41 | XMS_ITS | Encounter Summary ---
:1965 Author Organization [facility] Address [address] [place] [address] Care Team Providers Name Role Phone Elsewhere, Pcp Primary Care Provider Unavailable Reason for Visit Outpatient (Routine) - Closed Specialty Diagnoses / Procedures Referred By Contact Refer red To Contact Anesthesiology Diagnoses Anemia Shauna Rubin APRN, [facility] C.N.P., M.S.N. [address] [place] [phone] Referral ID Status Reason Start Date Expiration Date Visits Requ ested Visits Authorized [id number] Closed 04/22/2022 04/22/2023 1 1 Encounter Details Date Type Department Care Team Description 05/03/2022 Comprehensive Visit Preoperative Evaluation Shauna Gomez, NIKKY, C.N.P., M.S.N. [address] [place] [phone] [facility] [place], Peter Tse R.N. [address] [place] [phone] [place] [address] [place] [address] [phone] Social History Tobacco Use Types Packs/Day [...] you attend religious or Patient refused 2021 mormonism services? Do [...] iron in the past when living in [place] (approximately 5-6 years ago). Therapy Plan: With the planned ARTHROPLASTY REPLACEMENT TOTAL SHOULDER on 05/18/2022 the patient would meet criteria based on the Preoperative Anemia Treatment Algorithm and RN Anemia Protocol to receive 1 x 1,000 mgdose of IV iron dextran. Patient agrees with this and would like this administered @ [facility]. I provided the patient with the education pamphlet [id number] Treating Anemia Before Surgery andanswered her questions [...] documented as of this encounter Care Teams Profile Grinder Relationship Specialty Start Date End Date Elsewhere, Pcp PCP - General Family Medicine 12/25/21 documented as of this encounter
--- OUTSIDE RECORDS SUMMARY | 2022-08-01 07:41 | XMS_ITS | Encounter Summary ---
:1965 Author Organization [facility] Address [address] [place] [address] Care Team Providers Name Role Phone Elsewhere, Pcp Primary Care Provider Unavailable Reason for Visit Reason Comments Pre-visit Intake Encounter Details Date Type Department Care Team Description 05/12/2022 Clinical Communication Department of Cyrus Polk e-visit Intake Orthopedic Surgery Lilian Souza in [address] [place] [phone] [place], [place] [phone] (Work) [phone] Social History Tobacco Use Types Packs/Day Years [...] you attend religious or Patient refused 2021 mandaen services? Do [...] documented as of this encounter Care Teams Railroad Conductor Relationship Specialty Start Date End Date Elsewhere, Pcp PCP - General Family Medicine 12/25/21 documented as of this encounter
--- OUTSIDE RECORDS SUMMARY | 2022-08-01 07:41 | XMS_ITS | Encounter Summary ---
:1965 Author Organization [facility] Address [address] [place] [address] Care Team Providers Name Role Phone Elsewhere, Pcp Primary Care Provider Unavailable Encounter Details Date Type Department Care Team Description 05/18/2022 Anesthesia Event RST SEBAS MORAN OR Kaushik Carpenter, [address] [facility] [place] [address] [address] [facility] [phone] [place] [phone] (Wo rk) Anesthesia Record Procedure Summary Procedure [...] h andoff to the receiving staff during [facility] we 1. Identified the patient 2. [...] by Placement Time: 1220 Ihsan Patel APRN, POULTICE MACHINE OPERATOR Ihsan Townsend APRN, (created via procedure POULTICE MACHINE OPERATOR documentation); Mask Ventilation: Easy mask; Type: [...] you attend sabianism or Patient refused 2021 buddhist services? Do [...] Procedure Summary Date: 05/18/22 Room / Location: [place] [address] / [facility] in [place], [place] Anesthesia Start: 1214 Anesthesia Stop: 1415 [...] ETT location: oral VL device: glide scope [place] scope blade size: 3 Adult tube size: [...] diagnosis: Loose left total shoulder arthroplasty. Location: [place] [address] / [facility] in [place], [place] Providers: Cyrus Polk M.D. 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 AK US GUIDE PLC NDL Routine 05/18/2022 11:24 Resu lts for this AM CDT procedure are i n the results section. AK INJ ANES BRACHIAL Routine 05/18/2022 11:24 Res [...] ETT location: oral VL device: glide scope [place] scope blade size: 3 Adult tube size: [...] no complications Kaushik Carlos, BBritton ANESTHESIA ORDERABLES AK INJ ANES BRACHIAL PLEX, [place] US GUIDE PLC NDL, MC ANE NERVE [...] documented as of this encounter Care Teams Clearance Coordinator Relationship Specialty Start Date End Date Elsewhere, Pcp PCP - General Family Medicine 12/25/21 documented as of this encounter
--- OUTSIDE RECORDS SUMMARY | 2022-08-01 07:41 | XMS_ITS | Encounter Summary ---
:[address] [facility] Address [address] [place] [address] Care Team Providers Name Role Phone Elsewhere, Pcp Primary Care Provider Unavailable Reason for Visit Outpatient (Routine) - Closed Specialty Diagnoses / Procedures Referred By Contact Refer red To Contact Orthopedic Surgery Diagnoses Pain Shoulder Left Preoperative Exam Alfredo Herrera, [facility] OP.A.-C [address] [place] [address] Referral ID Status Reason Start Date Expiration Date Visits Requ ested Visits Authorized [id number] Closed 04/22/2022 04/22/2023 1 1 Encounter Details Date Type Department Care Team Description 05/17/2022 Office Visit Department of Cyrus Polk, Raul Shou lder Left; Orthopedic Surgery in M.D. Preoperative Exam [place], [place] [address] [facility] [address] [place] [address] [phone] Social History Tobacco Use Types Packs/Day Years [...] you attend spiritism or Patient refused 2021 yarsani services? Do you belong to any clubs or No 05/17/2022 organizations such as spiritism groups, unions, [employer]icative [employer] or athletic groups, or school groups? [...] may involve the use of a medical office administrator made by a [email or web address] I or one of my partners have collaborated to design, develop, or improve orthopedic implants, instruments, or products. Both the [facility] and the individual surgeons involved receive royalty payments from the use of those specific devices at other institutions, but no royalties or any other payments are paid for the use of those devices with any [facility] patient. The clinical rationale for the use of those devices as well as the availability and applicability of alternative devices was reviewed. He understands that the final decision for the use of a specific medical office administrator often is made at the time of [...] documented as of this encounter Care Teams Spinal Surgeon Relationship Specialty Start Date End Date Elsewhere, Pcp PCP - General Family Medicine 12/25/21 documented as of this encounter
--- OUTSIDE RECORDS SUMMARY | 2022-08-01 07:41 | XMS_ITS | Encounter Summary ---
:1965 Author Organization [facility] Address [address] [place] [address] Care Team Providers Name Role Phone Elsewhere, Pcp Primary Care Provider Unavailable Reason for Visit Reason Comments Discharge Planning Discharge Planning Encounter Details Date Type Department Care Team Description 05/06/2022 Clinical Communication Department of Kaushik Portillo Di scharge Planning Orthopedic Surgery R.N. (Discharge in [place] [address] [facility] Planning) [place], [place] [address] [place] [address] [place], [place] [phone] (Work) [phone] Social History Tobacco Use Types Packs/Day Years [...] home. The role of the caregiver and patient transportation driver will be filled by the patient's [...] to her history of falling. I encourage Ortho.Physician Surgeon to contact this patient, prior to surgery, [...] documented as of this encounter Care Teams Fretted Instrument Inspector Relationship Specialty Start Date End Date Elsewhere, Pcp PCP - General Family Medicine 12/25/21 documented as of this encounter
--- OUTSIDE RECORDS SUMMARY | 2022-08-01 07:41 | XMS_ITS | Encounter Summary ---
:1965 Author Organization [facility] Address [address] [place] [address] Care Team Providers Name Role Phone Elsewhere, Pcp Primary Care Provider Unavailable Encounter Details Date Type Department Care Team Description 05/17/2022 Hospital Encounter Department of Alfredo Herrera Preo perative Exam Laboratory Medicine O.P.A.-C. and Pathology, [place] 200 [facility], in [place], [place] [address] [place] [address] [place], [place] (Work) [phone] Social History Tobacco Use Types Packs/Day Years [...] you attend mosque or Patient refused 2021 restorationism services? Do [...] THC multivit-min/iron/folic/ Take 1 tablet by 0 [id number] (HAIR, SKIN AND mouth daily. NAILS ADVANCED [...] [facility] [address] [place], [place] [address] [place] [address] [facility] [address] Basic Metabolic Panel (05/17/2022 [...] 05/17/2022 DTL Black/ mL/min/BSA 12:12 PM CDT Gambian Comment: ----ADDITIONAL INFORMATION---- Estimated GFR calculated using [...] [facility] [address] [place], [place] [address] [facility] [place] [address] [facility] [address] Type and Screen (with reflex Antibody ID) (05/17/2022 10:50 AM CDT) [facility] Method Time Signature ABORh A Neg [...] [facility] - [address] [place], [place] [address] [facility] [place] [address] [facility] [address] [facility] (ABNORMAL) CBC with Differential, Blood (05/17/2022 10:50 AM CDT) [facility] [employer] Method Time Signature Hemoglobin 9.2 (L) 11.6 [...] [facility] [address] [place], [place] [address] [facility] [place] [address] [facility] [address] documented in this encounter Visit Diagnoses Diagnosis Preoperative Exam documented in this encounter Additional Health Concerns Infection Onset Date Last Indicated Resolved Time COVID19 Pending 05/17/2022 05/17/2022 05/17/2022 2:34 PM CDT Assessment Noted Time PHQ-9 Depression Total Score: 16 02/11/2021 12:00 AM C DT documented as of this encounter Care Teams It Program Auditor Relationship Specialty Start Date End Date Elsewhere, Pcp PCP - General Family Medicine 12/25/21 documented as of this encounter
--- OUTSIDE RECORDS SUMMARY | 2022-08-01 07:41 | XMS_ITS | Encounter Summary ---
:1965 Author Organization [facility] Address [address] [place] [address] Care Team Providers Name Role Phone Elsewhere, Pcp Primary Care Provider Unavailable Reason for Referral Outpatient (Routine) - Closed Specialty Diagnoses / Procedures Referred By Contact Refer red To Contact Orthopedic Surgery Diagnoses Pain Shoulder Left [facility] [address] [place] [address] Referral ID Status Reason Start Date Expiration Date Visits Requ ested Visits Authorized [id number] Closed 04/22/2022 04/22/2023 1 1 Reason for Visit Reason Comments pre op orders Encounter Details Date Type Department Care Team Description 04/22/2022 Clinical Communication Department of Cyrus Polk op orders Orthopedic Surgery in Lilian Souza [place], [place] [address] [place] [address] [place] [phone] Social History Tobacco Use Types Packs/Day Years [...] you attend yazidi or Patient refused 2021 synagogue services? Do you belong to any clubs or No 05/17/2022 organizations such as yazidi groups, unions, frabrick&mobile or athletic groups, or school groups? How [...] 05/17/2022 DTL Black/ mL/min/BSA 12:12 PM CDT Ugandan Comment: ----ADDITIONAL INFORMATION---- Estimated GFR calculated using [...] [facility] - [address] [place], [place] [address] [facility] [place] [address] [facility] [address] Type and Screen (with reflex Antibody ID) (05/17/2022 10:50 AM CDT) [facility] [employer] Method Time Signature ABORh A Neg Not 05/17/2022 ETRM applicable 7:10 PM CDT Antibody Negative Negative 05/17/2022 ETRM Screen 7:22 PM CDT Type & Screen 07/15/2022 05/17/2022 ETRM Expiration 23:59 7:10 PM CDT Testing [place] DEFAULT 05/17/2022 ETRM Location 12:24 PM CDT Specimen Anatomical Collection Method Collection Time Receive d Time (Source) Location / / Volume Laterality Blood (Blood, 05/17/2022 10:50 05/17/2022 Venous) AM CDT 12:24 PM CDT Alfredo Kamara LAB BLOOD BANK TEST ORDERABL ES Performing Organization Address City/State/ZIP Code Phon e Number [facility] - [address] [place], [place] [address] [facility] [place] [address] [facility] [address] [facility] (ABNORMAL) CBC with Differential, Blood (05/17/2022 10:50 AM CDT) [facility] [employer] Method Time Signature Hemoglobin 9.2 (L) 11.6 [...] Number [facility] - [address] [place], [place] [address] [facility] [place] [address] [facility] 200 [facility] SARS Coronavirus 2, Molecular Detection, PCR, Varies Asymptomatic (05/17/2022 10:26 AM CDT) [facility] Method Time Signature COVID-19, Swab, 05/17/2022 [...] ----ADDITIONAL INFORMATION---- This RT-PCR test using the MessageOne SARS-Co V-2 Assay ( Zytoprotec.) performed on the MessageOne Two Module System has received Emergency Use Authorization (EUA) by the U.S. Food and Drug Administration, and is modified from the barrel loader's instructions with a bridging study. Performance characteristics were verifie d by [facility] in a manner consistent with CLIA requirements. Visit the CDC website: https://www.cdc.g ov/coronavirus/ for the most recent guidelines on [facility] virus testing. Fact Sheet for Healthcare Providers: https://www.fda.gov/media/594992/downloa d Fact Sheet for Patients: https://www.fda.gov/media/940100/downloa d Specimen Anatomical Collection Method Collection Time Receive d Time (Source) Location / / Volume Laterality Varies 05/17/2022 10:26 05/17/2022 (Nasopharynx) AM CDT 10:52 AM CDT Alfredo Kamara LAB MICROBIOLOGY - GENERAL O RDERABLES Performing Organization Address City/State/ZIP Code Phon e Number [facility] - [address] [place], [place] [address] [facility] [place] [address] [facility] [address] documented in this encounter Visit Diagnoses Diagnosis Pain Shoulder Left - Primary Preoperative Exam documented in this encounter Additional Health Concerns Assessment Noted Time PHQ-9 Depression Total Score: 16 02/11/2021 12:00 AM C DT documented as of this encounter Care Teams Scientific Glass Blower Relationship Specialty Start Date End Date Elsewhere, Pcp PCP - General Family Medicine 12/25/21 documented as of this encounter
--- OUTSIDE RECORDS SUMMARY | 2022-08-01 07:41 | XMS_ITS | Encounter Summary ---
:1965 Author Organization [facility] Address [address] [place] [address] Care Team Providers Name Role Phone Elsewhere, Pcp Primary Care Provider Unavailable Reason for Referral Outpatient (Routine) - Closed Specialty Diagnoses / Procedures Referred By Contact Refer red To Contact Anesthesiology Diagnoses Anemia [facility] C.N.Hema, M.S.N. [address] [place] [phone] Referral ID Status Reason Start Date Expiration Date Visits Requ ested Visits Authorized [id number] Closed 04/22/2022 04/22/2023 1 1 Encounter Details Date Type Department Care Team Description 04/22/2022 Orders Only Preoperative Evaluation Shauna Rubin (Primary Dx) Center in [facility], [place] M.S.N. [address] [place] [address] [place] [phone] [place], [place] [phone] Social History Tobacco Use Types Packs/Day Years [...] you attend latter-day or Patient refused 2021 adventist services? Do [...] 05/03/2022 Venous) AM CDT 10:53 AM CDT [facility] - 05/03/2022 11:47 AM CDT Specimen Information: Specimen ID: [id number] Specimen Type: Blood Specimen Collection Start Date: 10:11 AM Specimen Received Date: 05/03/2022 10:53 AM Specimen ID: [id number] Specimen Type: Blood Specimen Collection Start Date: 2 10:11 AM Specimen Received Date: 05/03/2022 10:53 AM Specimen ID: [id number] Specimen Type: Blood Specimen Collection Start Date: 6/6/202 2 10:11 AM Specimen Received Date: 05/03/2022 10:53 AM Specimen ID: [id number] Specimen Type: Blood Specimen Collection Start Date: 2 10:11 AM Specimen Received Date: 05/03/2022 10:32 AM Specimen ID: [id number] Specimen Type: Blood Specimen Collection Start Date: 2 10:11 AM Specimen Received Date: 05/03/2022 11:44 AM Shauna Rubin APRN C.NCristiana, M.S.N. LAB BLOOD ADD-ON Performing Organization Address City/State/ZIP Code Phon e Number [facility] - [address] [place], [place] [address] [facility] [place] [address] [address] documented in this encounter Visit Diagnoses Diagnosis Anemia - Primary Anemia documented in this encounter Additional Health Concerns Assessment Noted Time PHQ-9 Depression Total Score: 16 02/11/2021 12:00 AM C DT documented as of this encounter Care Teams Kiln Firer Relationship Specialty Start Date End Date Elsewhere, Pcp PCP - General Family Medicine 12/25/21 documented as of this encounter
--- OUTSIDE RECORDS SUMMARY | 2022-08-01 07:41 | XMS_ITS | Encounter Summary ---
:1965 Author Organization [facility] Address [address] [place] [address] Care Team Providers Name Role Phone Elsewhere, Pcp Primary Care Provider Unavailable Encounter Details Date Type Department Care Team Description 05/03/2022 Hospital Encounter Department of Laboratory Shauna Rubin, Anemia Medicine and Pathology, [facility] [place] [address] [place] [phone] (Wo rk) Social History Tobacco Use Types [...] you attend synagogue or Patient refused 2021 roman catholic services? [...] THC multivit-min/iron/folic/ Take 1 tablet by 0 [id number] (HAIR, SKIN AND mouth daily. NAILS ADVANCED [...] Venous) AM CDT 10:53 AM CDT Narrative [facility] - 05/03/2022 11:47 AM CDT Specimen Information: Specimen ID: [id number] Specimen Type: Blood Specimen Collection Start Date: 10:11 AM Specimen Received Date: 05/03/2022 10:53 AM Specimen ID: [id number] Specimen Type: Blood Specimen Collection Start Date: 10:11 AM Specimen Received Date: 05/03/2022 10:53 AM Specimen ID: [id number] Specimen Type: Blood Specimen Collection Start Date: 10:11 AM Specimen Received Date: 05/03/2022 10:53 AM Specimen ID: [id number] Specimen Type: Blood Specimen Collection Start Date: 2 10:11 AM Specimen Received Date: 05/03/2022 10:32 AM Specimen ID: [id number] Specimen Type: Blood Specimen Collection Start Date: 2 10:11 AM Specimen Received Date: 05/03/2022 11:44 AM Shauna Rubin APRN C.N.P., M.S.N. LAB BLOOD ADD-ON Performing Organization Address City/State/ZIP Code Phon e Number [facility] - [address] [place], [place] [address] [facility] [place] [address] [facility] [address] documented in this encounter Visit Diagnoses Diagnosis Anemia documented in this encounter Additional Health Concerns Assessment Noted Time PHQ-9 Depression Total Score: 16 02/11/2021 12:00 AM C DT documented as of this encounter Care Teams Tubular Splitting Machine Tender Relationship Specialty Start Date End Date Elsewhere, Pcp PCP - General Family Medicine 12/25/21 documented as of this encounter
--- OUTSIDE RECORDS SUMMARY | 2022-08-01 07:41 | XMS_ITS | Encounter Summary ---
:1965 Author Organization [facility] Address [address] [place] [address] Care Team Providers Name Role Phone Elsewhere, Pcp Primary Care Provider Unavailable Encounter Details Date Type Department Care Team Description 04/21/2022 Clinical Communication Department of Cyrus Polk Orthopedic Surgery in Lilian Souza [place], [place] [address] [place] [address] 200 [place] [phone] Social History Tobacco Use Types Packs/Day Years [...] you attend mosque or Patient refused 2021 congregation services? Do [...] something else is going on . Angie [phone] documented in this encounter Plan of Treatment Not on filedocumented as of this encounter Visit Diagnoses Not on filedocumented in this encounter Additional Health Concerns Assessment Noted Time PHQ-9 Depression Total Score: 16 02/11/2021 12:00 AM C DT documented as of this encounter Care Teams Habitat Management Coordinator Relationship Specialty Start Date End Date Elsewhere, Pcp PCP - General Family Medicine 12/25/21 documented as of this encounter
--- OUTSIDE RECORDS SUMMARY | 2022-08-01 07:41 | XMS_ITS | Encounter Summary ---
:1965 Author Organization [facility] Address [address] [place] [address] Care Team Providers Name Role Phone Elsewhere, Pcp Primary Care Provider Unavailable Encounter Details Date Type Department Care Team Description 05/18/2022 Surgery RST SEBAS MORAN OR Cyrus Polk, ARTHROPLASTY REPLACEMENT [address] [facility] [facility] [place] [address] 200 [facility] [phone] [place] [address] Social History Tobacco Use Types Packs/Day Years [...] or the highest technical, or vocational p [employer] degree you have received? Sex Assigned at [...] AM CDT DISCHARGE SUMMARY BRIEF OVERVIEW Hospital: [facility] Discharge Provider: Cyrus Polk M.D. Primary [...] R, M.D. RST ROEI OR DISCHARGE DISPOSITION Home-[facility] Care [facility] [6] ACTIVE ISSUES REQUIRING FOLLOW UP This document serves as a prescription to continue physical therapy, medications, and labs or x-raysif ordered/required. If you have any questions or concerns about surgery or upcoming appointments, please do not hesitateto contact Dr. Polk's office at [phone] during regular business hours (8am-5pm M-F). For emergencies on the weekend or after hours, you may contact Dr. Polk's service via the [facility] refined syrup operator at [phone]. Details for your 6 week follow-up appointment [...] to: Cyrus Polk MD Dept of Orthopedics [address], [address] None OUTPATIENT FOLLOW UP For appointment details [...] Cyrus Polk M.D.Jenna Zaldivar M.D.Kaushik Cadena M.D. [facility] Angie Mosquera was taken to [...] THC multivit-min/iron/folic/ Take 1 tablet by 0 bil654 (HAIR, SKIN AND mouth daily. NAILS ADVANCED [...] 6 pm, please page Jam service at [phone] For urgent matters from 6 pm until 6 am, please page [facility]o [facility] [phone] Jane Nguyen PharmBrittonDBritton, R.Ph. - 05/19/2022 8:12 [...] at this time. Jane Nguyen Pharm.D., R.Ph. [phone] Kaushik Cadena M.D. - 05/19/2022 7:34 AM [...] 6 pm, please page Jam service at [phone] For urgent matters from 6 pm until 6 am, please page Ortho [place] at [facility] [phone] Paco Valentine - 05/18/2022 9:47 AM CDT Encounter: AM Admit Deanna Tradition: No buddhism affiliation. Ms. Mosquera did not express any spiritual needs at this time. Plan: Will remain available for spiritual care as needed or requested. Chaplains can be contacted bypaging [phone] ([facility]). Rodrigo Preston, Pharm.D., R.Ph. - 05/18/2022 [...] Take 150 mg by mouth every morning. awgvccmzxu-dusweytjjimgl-hryp (ESGIC) 50-325-40 mg per tablet Past Week [...] 1 spray as needed. 5 mg THC multivit-min/iron/folic/hjm607 (HAIR, SKIN AND NAILS ADVANCED ORAL) Past [...] (HCC) ??? Nicotine Dependence Unspecified ??? 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 Direct Infection Of [...] Profile Lives With: Alone Receives Help From: spa attendant, Family, Friend(s) ADL Assistance: Required assistance ADL Assistance Comments: Gets help from DIE KEEPER for her bath/shower 3x/week, and for her meals IADL/Homemaking Assistance: Required assistance IADL/Homemaking Assistance Comments: Gets help for housecleaning Driving: Does not drive Driving Comments: takes her cane and medical alert with her. Occupational Role: On disability Occupational Role Comments: Previously worked at a [employer] and [employer] Prior Mobility/Functional Transfers Level of Mcloud: Needs assistance Previous Transfer/Mobility Assistance Comments: Patient [...] mask during therapy session: yes Outcome Measures -[facility] Inpatient Short Form: AM-[facility] Basic Mobility (V.2) How much help [...] 3-5 steps with a railing?: A Little AM-[facility] Basic Mobility (V.2) Raw Score: 18 -[facility] Basic Mobility (V.2) Standardized Score: 41.05 Interpretation: Clinicians answer the -[facility] Inpatient Short Form based on observed [...] Nurse Referral Reason: Discharge Planning Primary Language: Cambodian Carton Gluing Machine Operator Services Used: No Person(s) present during interview: Person(s) Present During Interview: patient History of Present Illness #1 Primary Osteoarthritis Shoulder Left Social History Support System: children, outpatient case manager/criminal justice social worker, friends/neighbors and home care staff [...] Calm, Oriented Communication: Talks, Understands speaking, Understands Cambodian Shopping: Needs assistance Transportation: Support from family Medication Management: Needs assistance Housekeeping: Needs assistance Meal Prep: Needs assistance Managing Finances: Independent Assistive Devices: Grab bars - wall, Eyeglasses Services/Resources: Other (comment) Agency Name: [facility] Services Provided: DIE KEEPER services 3x/week, nurse visits every other week Baseline Services/Resources Primary care clinic and provider: [facility] [place] Phone: Fax: Anticipated Needs Functional Status: Transfer to/from bed, chair, etc., Bathing, Dressing, Grooming/hygeine, Housekeeping, Shopping, Meal preparation, Mobility, Medication set-up/administration, Transportation use (drive car, use taxi/bus) Services/Resources: Other (comment) Agency Name: [facility] Services Provided: DIE KEEPER services 3x/week, nurse visits every other week Transportation Needs: Support from family Does the patient need discharge transport arranged?: No Ride and Caregiver Arranged: Yes Anticipated Discharge Destination: Home-Health Care [facility] ASSESSMENT / PLAN Assessment: The a and p mechanic met with Angie Mosquera to discuss her current hospitalization and home goingneeds. The patient was unaccompanied. The patient was a reliable historian. The role of a and p mechanic was reviewed. The patient reviewed her prior level of care and support system. The patient receives support from her son, friends and home care staff. Patient reported her son lives in the same apartment as her. She also stated getting DIE KEEPER services 3x/week and a nurse visits her every other week. The patient described her living environment as a two bedroom apartment. Housekeeping, grocery shopping, meal prep, and other household responsibilities have previously been completed by patient, patient's son and patient's caregiver(s). a and p mechanic discussed the patient's potential [facility] based on their home setting, previous needs and responsibilities, homebound status, and relevantassessments with the patient. The patient will be safe and supported to return home with [facility] or previous services noted above when medically ready. Support will be provided by son, friends and home care staff. The patient demonstrated understanding when discussing her home going plans and anticipated needs. At this time, the care team anticipates the patient requires the following service(s) to be reconnected: home healthcare. The patient identified the following as their current vendor(s): [facility]. During this visit patient verbalized she is hoping to increase her DIE KEEPER hours and also inq uired about getting a scooter to assist in her mobility. Patient went on to share she is unstable attimes due to her stroke history. She thought perhaps her neurology doctor would be able to help her get a scooter. RN CM recommended she [facility] the [facility] in regards to wanting more DIE KEEPER hours. She was also recommended to follow up with her primary care provider to provide durable medical equipment justification for a scooter, as she is currently hospitalized for orthopedic surgery. Patient verbalized understanding. Patient informed RN ROWAN would be reconnecting her DIE KEEPER services and nurse visits with [facility]. Patient agreeable to RN CM completing this and even provided RN CM the name and contact of her DIE KEEPER and RN. After reviewing the patient's chart and meeting with the patient, the a and p mechanic deemed the LACE+/readmission questions were not necessary. The patient reports understanding that she will dismiss from the hospital when medically stable. Pending hospital course and medical readiness, no barriers to dismissal have been identified at this time. Plan: Patient to discharge with home health care. [facility] Contact: RADHA Palomino ATTN: Georgette [...] directive. PRIMARY SERVICE: - Please provide a non-[place] home health order for resumption of previous [...] dismissal will be provided by family. 3. a and p mechanic recommended reaching out to family, friends, and neighbors for assistance. 4. a and p mechanic provided information regarding the dismissal process. 5. a and p mechanic placed or requested the following hospital-based consult orders and/or referrals:None. 6. a and p mechanic will continue to assess for homegoing needs with the interdisciplinary team. 7. a and p mechanic encouraged the patient to reach out with [...] falls. Patient will discharge to home with [facility] reconnect. Identify possible barriers to meeting goals/advancing plan of care: none End of Shift Summary: Patient stayed on schedule with prn pain meds (Tramadol and oxycodone) throughout the shift. Encouraged using ice packs to help with pain and swelling. Patient's primapore dressing was changed to Aquacell AG and is clean, dry and intact. Patient has baseline numb/tingling, moderate chief client officer, skin pink and warm with +2 pulses. Patient expects RN from [facility] to visit on Tuesday, May 24. Patient's friend will transport home. Medications including: oxycodone and tramadol were picked up [facility]. documented in this encounter OR Notes Op Note - Cyrus Polk M.D. - 05/18/2022 5:54 PM CDT STAFF: Cyrus Polk M.D. RESIDENT: Jenna Zaldivar M.D. PRE-OPERATIVE DIAGNOSIS Left dislocated reverse arthroplasty. POST-OPERATIVE DIAGNOSIS Left dislocated reverse arthroplasty. A recruiting assistant actively participated and was necessary for [...] glenosphere, placement new humeral stem and tray, [id number] Cyrus Polk M.D. CT CT Job ID: [id number] documented in this encounter Miscellaneous Notes Hospital Course - Kaushik Cadena M.D. - 05/19/2022 12:18 PM CDT Surgery Information This Encounter Past Procedures (05/19/2021 to Today) Date Procedures Providers Location 05/18/2022 ARTHROPLASTY REPLACEMENT TOTAL SHOULDER. Cyrus Polk M.D.Wasserburger, Jory N, M.D.Markos, James R, M.D. [facility] Angie Mosquera was taken to [...] with Differential, Blood (05/20/2022 3:43 AM CDT) [facility] Method Time Signature Hemoglobin 8.4 (L) [...] [facility] - [address] [place] [address] [facility] [place] [address] [facility] 200 [facility] (ABNORMAL) CBC with Differential, Blood (05/19/2022 3:26 AM CDT) [facility] Method Time Signature Hemoglobin 7.6 (L) [...] [facility] - [address] [place], [place] [address] [facility] [place] [address] [facility] [address] (ABNORMAL) Basic Metabolic [...] 05/19/2022 DTL Black/ mL/min/BSA 4:38 AM CDT [place] Comment: ----ADDITIONAL INFORMATION---- Estimated GFR calculated using [...] [facility] - [address] [place], [place] [address] [facility] [place] [address] [facility] [address] [...] Jenna Zaldivar M.D. IMG DIAGNOSTIC IMAGING PROCE [facility] Surgical Pathology, Frozen Lab (05/18/2022 1:04 PM CDT) Component Value Ref Test Analysis Performed At [facility] Range Method Time Signature 05/20/2022 METH [...] LAB SURG PATH ORDERABLES Performing Organization Address City/[facility] Phon e Number [facility] - [address] [place], [place] [address] [facility] [place] [address] [facility] 200 [facility] Bacteria Cult, Aerobe / Anaerobe+Susc (05/18/2022 1:03 PM CDT) [facility] gist Method Time Signature Bacteria Cult, No growth 06/01/2022 DT Aerobe/Anaerob after 14 6:02 PM CDT e+Susc days of incubation. Specimen Anatomical Collection Method Collection Time Receive d Time (Source) Location / / Volume Laterality Shoulder, Left 05/18/2022 1:03 PM 022 5:21 CDT PM CDT Comment: Specimen Source Site: Tissue #1 Narrative [facility] - [facility] - 06/01/2022 6:02 PM CDT Bacterial Culture: Placed in Bactec aero bic and Bactec anaerobic bottles Cyrus Polk M.D. LAB MICROBIOLOGY - GENERAL O RDERABLES Performing Organization Address City/[facility]/ZIP Code Phon e Number [facility] - [address] [place], [place] [address] [place], [place] [phone] [place] [address] 200 [facility] Bacteria Cult, Aerobe / Anaerobe+Susc (05/18/2022 1:03 PM CDT) [facility] Method Time Signature Bacteria Cult, No growth 06/01/2022 DTL Aerobe/Anaerob after 14 6:02 PM CDT e+Susc days of incubation. Specimen Anatomical Collection Method Collection Time Receive d Time (Source) Location / / Volume Laterality Shoulder, Left 05/18/2022 1:03 PM 022 5:12 CDT PM CDT Comment: Specimen Source Site: Tissue #3 Narrative [facility] - 06/01/2022 6:02 PM CDT Bacterial Culture: Placed in Bactec aero bic and Bactec anaerobic bottles Cyrus Polk M.D. LAB MICROBIOLOGY - GENERAL O MARY Performing Organization Address City/[facility]/ZIP Code Phon e Number [id number] [place] [address] Bacteria Cult, Aerobe / Anaerobe+Susc (05/18/2022 1:03 PM CDT) [facility] Method Time Signature Bacteria Cult, No growth 06/01/2022 DTL Aerobe/Anaerob after 14 6:02 PM CDT e+Susc days of incubation. Specimen Anatomical Collection Method Collection Time Receive d Time (Source) Location / / Volume Laterality Shoulder, Left 05/18/2022 1:03 PM 022 5:07 CDT PM CDT Comment: Specimen Source Site: Tissue #2 Narrative [facility] - 06/01/2022 6:02 PM CDT Bacterial Culture: Placed in Bactec aero bic and Bactec anaerobic bottles Cyrus Polk M.D. LAB MICROBIOLOGY - GENERAL O MARY Performing Organization Address City/[facility] Phon e Number [phone] [place] [address] documented in this encounter Visit Diagnoses Diagnosis [...] 05/19/2022 05/20/2022 acetaminophen tablet 1,000 mg (TYLENOL) 3410 (Given - Provider: Corrie Toscano RBrittonN.)1641 (Given - Provider: Catalina Mccloud RBrittonN.) 0511 (Given - Provider: Catalina Mccloud R.N.)1154 (Given - Provider: Isaura Vu RBrittonN.)1725 (Given [...] 1240 (Given - Provider: Ihsan Townsend APRN, [facility]) 2,000 mg (rounded from 1,652.5 mg = [...] 1240 (Given - Provider: Ihsan Townsend APRN, [facility]) 1,000 mg (1 g), intravenous, at 300 [...] M.S.N., R.N., O.C.N. - Comment: pt request) 0950 (Given - Provider: Isaura Vu RBetsy) 300 [...] mg of calcium, oral, Every [address] N, indigestion, Starting on Tue05/18/22 at 1608, [...] mg (DILAUDID) 2241 (Given - Provider: Candace Lanza M.S.N., R.N., O.C.N.) 0.2 mg, intravenous, Every [...] Leticia Pérez, R.N.)0552 (Given - Provider: Jere Lvey R.N.)1004 (Given - Provider: Isaura Vu R.N. [...] over 3 days 1 patch (TRANSDERM S ROOF TECHNICIAN) (CANCELED) 1118 (Medication Applied - Provider: Cristy [...] documented as of this encounter Care Teams Curb Hop Relationship Specialty Start Date End Date Elsewhere, Pcp PCP - General Family Medicine 12/25/21 documented as of this encounter
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
--- OUTSIDE RECORDS SUMMARY | 2022-08-01 07:41 | XMS_ITS | Encounter Summary ---
:1965 Author Organization [facility] Address [address] [place] [address] Care Team Providers Name Role Phone Elsewhere, Pcp Primary Care Provider Unavailable Reason for Referral MRI/CAT/PET Scan (Routine) - Closed Specialty Diagnoses / Procedures Referred By Contact Refer red To Contact Radiology Diagnoses Painful Total Joint Arthroplasty Initial ([facility]) Alfredo Herrera [place] Procedures CT Shoulder Left without IV Contrast O.P.A.-C. [address] [place] [phone] Referral ID Status Reason Start Date Expiration Date Visits Requ ested Visits Authorized [id number] Closed 04/02/2022 04/02/2023 1 1 Reason for Visit MRI/CAT/PET Scan (Routine) - Closed Specialty Diagnoses / Procedures Referred By Contact Refer red To Contact Radiology Diagnoses Painful Total Joint Arthroplasty Initial ([facility]) Alfredo Herrera [place] Procedures CT Shoulder Left without IV Contrast O.P.A.-C. [address] [place] [phone] Referral ID Status Reason Start Date Expiration Date Visits Requ ested Visits Authorized [id number] Closed 04/02/2022 04/02/2023 1 1 Encounter Details Date Type Department Care Team Description 04/14/2022 Hospital Encounter Department of Alfredo Herrera Painful Total Joint Radiology, [place] Arthroplasty Initial Building, in [address] [place] [address] ([facility]) [facility] [address] 200 [facility] [phone] [place], [place] (Work) [phone] Social History Tobacco Use Types Packs/Day Years [...] you attend pentecostalism or Patient refused 2021 faith services? Do [...] THC multivit-min/iron/folic/ Take 1 tablet by 0 [id number] (HAIR, SKIN AND mouth daily. NAILS ADVANCED [...] as of this encounter Care Teams Director Clinical Information Services Relationship Specialty Start Date End Date Elsewhere, Pcp PCP - General Family Medicine 12/25/21 documented as of this encounter
--- OUTSIDE RECORDS SUMMARY | 2022-08-01 07:41 | XMS_ITS | Encounter Summary ---
:1965 Author Organization [facility] Address [address] [place] [address] Care Team Providers Name Role Phone Elsewhere, Pcp Primary Care Provider Unavailable Reason for Referral Outpatient (Routine) - Closed Specialty Diagnoses / Procedures Referred By Contact Refer red To Contact Social Work Diagnoses Pain Shoulder Left Preoperative Exam Jenna Zaldivar [place] M.D. Referral ID Status Reason Start Date Expiration Date Visits Requ ested Visits Authorized [id number] Closed 05/10/2022 05/10/2023 1 1 Reason for Visit Reason Comments Pre-visit Testing Orders Encounter Details Date Type Department Care Team Description 05/07/2022 Clinical Communication Department of Jam, Pre- visit Testing Orthopedic Surgery Cyrus Souza M.D. Orders in [address] [place] [phone] [place], [place] [phone] [address] (Work) [phone] Social History Tobacco Use Types Packs/Day Years [...] [facility] Social Work - Outpatient Referral Routine Pain Shoulde r Left Expected: General consult Preoperative Exam 022 (clinic) (Approximate), Expires: 08/07/2023 documented as of this encounter Visit Diagnoses Diagnosis Pain Shoulder Left - Primary Preoperative Exam documented in this encounter Additional Health Concerns Assessment Noted Time PHQ-9 Depression Total Score: 16 02/11/2021 12:00 AM C DT documented as of this encounter Care Teams Railroad Hand Relationship Specialty Start Date End Date Elsewhere, Pcp PCP - General Family Medicine 12/25/21 documented as of this encounter
--- OUTSIDE RECORDS SUMMARY | 2022-08-01 07:42 | XMS_ITS | Encounter Summary ---
:1965 Author Organization [facility] Address [address] [place] [address] Care Team Providers Name Role Phone Elsewhere, Pcp Primary Care Provider Unavailable Reason for Referral Outpatient (Routine) - Closed Specialty Diagnoses / Procedures Referred By Contact Refer red To Contact Diagnoses Painful Total Joint Arthroplasty Initial (HCC) Alfredo Herrera [place] Procedures ORS US-Guided aspiration/injection O.P.A.-C. 200 [place] [address] Referral ID Status Reason Start Date Expiration Date Visits Requ ested Visits Authorized [id number] Closed 04/02/2022 04/02/2023 1 1 MRI/CAT/PET Scan (Routine) - Closed Specialty Diagnoses / Procedures Referred By Contact Refer red To Contact Radiology Diagnoses Painful Total Joint Arthroplasty Initial ([facility]) Alfredo Herrera [place] Procedures CT Shoulder Left without IV Contrast O.P.A.-C. 200 [place] [address] Referral ID Status Reason Start Date Expiration Date Visits Requ ested Visits Authorized [id number] Closed 04/02/2022 04/02/2023 1 1 Reason for Visit Outpatient (Routine) - Closed Specialty Diagnoses / Procedures Referred By Contact Refer red To Contact Orthopedic Surgery Diagnoses Arthroplasty Total Shoulder Replacement Status Post Left Alfredo Herrera [place] O.P.ABritton-C. [address] [place] [address] Referral ID Status Reason Start Date Expiration Date Visits Requ ested Visits Authorized [id number] Closed 02/25/2022 02/25/2023 1 1 Encounter Details Date Type Department Care Team Description 04/02/2022 Office Visit Department of Cyrus Polk Arthroplasty Total Shoulder Replacement Status Post Left; Orthopedic Surgery in [place] Painful Total Joint Arthroplasty Initial (HCC) [place], [place] [address] [facility] [address] [place] [phone] Social History Tobacco Use Types Packs/Day Years [...] you attend sikh or Patient refused 2021 mormon services? Do [...] Cyrus Polk M.D. CT CT Job ID: [id number] documented in this encounter Plan of Treatment [...] e Number [facility] - [address] [place] [address] [facility] [place] [place] [address] [facility] 200 [facility] (ABNORMAL) CBC without Differential (04/14/2022 10:42 AM CDT) [facility] Method Time Signature Hemoglobin 8.6 (L) [...] [facility] - [address] [place], [place] [address] [facility] [place] [address] [facility] [address] [place] ARTHCS ASP/INJ MJR JT W US (04/14/2022 [...] documented as of this encounter Care Teams Procedure Tech Relationship Specialty Start Date End Date Elsewhere, Pcp PCP - General Family Medicine 12/25/21 documented as of this encounter
--- OUTSIDE RECORDS SUMMARY | 2022-08-01 07:42 | XMS_ITS | Encounter Summary ---
:1965 Author Organization [facility] Address [address] [place] [address] Care Team Providers Name Role Phone Elsewhere, Pcp Primary Care Provider Unavailable Encounter Details Date Type Department Care Team Description 03/03/2022 Orders Only Pharmacy Prior Auth Ana Rosa Ying [phone] Social History Tobacco Use Types Packs/Day Years [...] you attend rastafarian or Patient refused 2021 presybeterian services? Do [...] documented as of this encounter Care Teams Equal Opportunity Assistant Relationship Specialty Start Date End Date Elsewhere, Pcp PCP - General Family Medicine 12/25/21 documented as of this encounter
--- OUTSIDE RECORDS SUMMARY | 2022-08-01 07:42 | XMS_ITS | Encounter Summary ---
:1965 Author Organization [facility] Address [address] [place] [address] Care Team Providers Name Role Phone Elsewhere, Pcp Primary Care Provider Unavailable Encounter Details Date Type Department Care Team Description 03/08/2022 Orders Only Department of Orthopedic Melissa Mcdonald M.D. Surgery in [place], [place] [address] [place] [address] Social History Tobacco Use [...] you attend mandaen or Patient refused 2021 buddhism services? Do [...] documented as of this encounter Care Teams Hand Slitter Relationship Specialty Start Date End Date Elsewhere, Pcp PCP - General Family Medicine 12/25/21 documented as of this encounter
--- OUTSIDE RECORDS SUMMARY | 2022-08-01 07:42 | XMS_ITS | Encounter Summary ---
:1965 Author Organization [facility] Address [address] [place] [address] Care Team Providers Name Role Phone Elsewhere, Pcp Primary Care Provider Unavailable Reason for Visit Reason Comments Medication Question Encounter Details Date Type Department Care Team Description 03/08/2022 Clinical Communication Department of Jose Polk Orthopedic Surgery Cyrus Souza M.D. in [place], [facility] [place], [place] [address] [place] [address] [place], [place] [phone] [address] (Work) [phone] Social History Tobacco Use Types Packs/Day Years [...] you attend adventist or Patient refused 2021 oriental orthodox services? [...] 11:22 AM CDT Kylie, pharmacist at [facility] in [place] calls. She is wondering if you indeed want to fill it. Please call her back at [phone] Regarding the oxycodone script sent today---patient had [...] as of this encounter Care Teams Sales And Service Agent Relationship Specialty Start Date End Date Elsewhere, Pcp PCP - General Family Medicine 12/25/21 documented as of this encounter
--- OUTSIDE RECORDS SUMMARY | 2022-08-01 07:42 | XMS_ITS | Encounter Summary ---
:1965 Author Organization [facility] Address [address] [place] [address] Care Team Providers Name Role Phone Elsewhere, Pcp Primary Care Provider Unavailable Reason for Referral Medication Prior Authorization - Denied Specialty Diagnoses / Procedures Referred By Contact Refer red To Contact Michael Chino M.D. Referral ID Status Reason Start Date Expiration Date Visits Requ ested Visits Authorized [id number] Denied 1 1 Encounter Details Date Type Department Care Team Description 02/26/2022 - Hospital Encounter [facility] Jam, Shoulder Joint Disorder Left; 02/27/2022 Hospital, Mormonism Cyrus Souza M.D. Pain Shoulder Left [facility] [address] [facility] [place], [place] Floor [address] [address] [facility] [phone] [place], [place] (Work) [phone] Social History Tobacco Use [...] you attend amish or Patient refused 2021 amish services? Do you belong to any clubs or No 05/17/2022 organizations such as amish groups, [employer], [employer] or athletic groups, or school groups? How [...] highest level of school Associate degree: etta oplo, 03/24/2021 you have completed or the highest [...] THC multivit-min/iron/folic/ Take 1 tablet by 0 [id number] (HAIR, SKIN AND mouth daily. NAILS ADVANCED [...] - 02/27/2022 8:05 AM CDT Orthopedic Service: [facility] Admission Day: 02/26/2022 SUBJECTIVE POD1. She is [...] am until 6 pm, please page the [facility] pager at [phone] For urgent matters from 6 pm until 6 am, please page [facility] House at [phone] Michael Chino M.D. - 02/26/2022 3:03 PM [...] am until 6 pm, please page the [employer] pager at [phone] For urgent matters from 6 pm until 6 am, please page Orth[facility] House at [phone] Clemente Buck, Pharm.D., R.Ph. - 02/26/2022 9:17 [...] Take 150 mg by mouth every morning. bzzzjgbsbt-ixdngbhlrkolf-tcab (ESGIC) 50-325-40 mg per tablet Past Week [...] 1 spray as needed. 5 mg THC multivit-min/iron/folic/jzt833 (HAIR, SKIN AND NAILS ADVANCED ORAL) 02/25/2022 [...] (HCC) ??? Nicotine Dependence Unspecified ??? Other Carbon Paper Coating Supervisor Current Drug Therapy ??? Direct Infection Of [...] Right Lives With: Alone Receives Help From: cardroom attendant, Family, Friend(s) ADL Assistance: Required assistance ADL Assistance Comments: Gets help from ICT CUSTOMER SUPPORT OFFICER for her bath/shower and for her meals IADL/Homemaking Assistance: Required assistance IADL/Homemaking Assistance Comments: Gets help for housecleaning Driving: Independent Driving Comments: takes her cane and medical alert with her. Occupational Role: On disability Occupational Role Comments: Previously worked at a [employer] Prior Mobility/Functional Transfers Level of [place]: Modified independent Previous Transfer/Mobility Assistance Comments: Patient [...] the last year, reports only bruising OBJECTIVE Agnie's NOHARM modalities were used during their therapy [...] mask during therapy session: yes Outcome Measures [facility] Inpatient Short Form: [facility] Basic Mobility (V.2) How much help [...] Standardized Score: 57.68 Interpretation: Clinicians answer the [facility] Inpatient Short Form based on observed [...] Prescriptions were sent and filled at the [facility] pharmacy. Catalina Mccloud R.N. - [...] elsewhere status post placement antibiotic spacer. A dam tender assistant was necessary for one or more [...] be placed with approximately 70% contact with [place] bone. The more superior aspect of the [...] of antibiotic spacer, implantation of reverse arthroplasty, [id number] Cyrus Polk M.D. CT CT Job ID: [id number] documented in this encounter Plan of Treatment [...] LAB BLOOD ADD-ON Performing Organization Address City/State/[facility] Code Phon e Number [facility] - [address] [place], [place] [address] [facility] [place] [address] [facility] 200 [facility] (ABNORMAL) Basic Metabolic Panel (02/26/2022 3:47 [...] 02/26/2022 DTL Black/ mL/min/BSA 6:27 PM CDT [place] Comment: ----ADDITIONAL INFORMATION---- Estimated GFR calculated using [...] Organization Address City/State/ZIP Code Phon e Number [facility] - 200 [place], [place] [address] [facility] [place] [address] [facility] 200 [facility] (ABNORMAL) CBC with Differential, Blood (02/26/2022 3:47 PM CDT) [facility] Method Time Signature Hemoglobin 8.8 (L) 11.6 [...] Organization Address City/State/ZIP Code Phon e Number [facility] - [address] [place] [address] [facility] [place] [address] [facility] 200 [facility] DX Shoulder Left 1 View (02/26/2022 [...] Aerobe / Anaerobe+Susc (02/26/2022 1:00 PM CDT) [facility] Method Time Signature Bacteria Cult, No growth 03/12/2022 DTL Aerobe/Anaerob after 14 2:02 PM CDT e+Susc days of incubation. Specimen Anatomical Collection Method Collection Time Receive d Time (Source) Location / / Volume Laterality Shoulder, Left 02/26/2022 1:00 PM 022 1:41 CDT PM CDT Comment: Specimen Source Site: Tissue 1 Narrative [facility] - 03/12/2022 2:02 PM CDT Bacterial Culture: Placed in Bactec aero bic and Bactec anaerobic bottles Cyrus Polk M.D. LAB MICROBIOLOGY - GENERAL O MARY Performing Organization Address City/[facility] Phon e Number [facility] - [address] Bacteria Cult, Aerobe / Anaerobe+Susc (02/26/2022 1:00 PM CDT) [facility] Method Richardson Signature Bacteria Cult, No growth 03/12/2022 DTL Aerobe/Anaerob after 14 2:02 PM CDT e+Susc days of incubation. Specimen Anatomical Collection Method Collection Time Receive d Time (Source) Location / / Volume Laterality Shoulder, Left 02/26/2022 1:00 PM 022 1:38 CDT PM CDT Comment: Specimen Source Site: Tissue 3 Narrative [facility] - 03/12/2022 2:02 PM CDT Bacterial Culture: Placed in Bactec aero bic and Bactec anaerobic bottles Cyrus Polk M.D. LAB MICROBIOLOGY - GENERAL O MARY Performing Organization Address City/[facility] Phon e Number [facility] - 200 [place], [place] [address] [facility] [place], [place] [id number] [place] [address] Bacteria Cult, Aerobe / Anaerobe+Susc (02/26/2022 1:00 PM CDT) Patholo gist Method Time Signature Bacteria Cult, No growth 03/12/2022 DTL Aerobe/Anaerob after 14 2:02 PM CDT e+Susc days of incubation. Specimen Anatomical Collection Method Collection Time Receive d Time (Source) Location / / Volume Laterality Shoulder, Left 02/26/2022 1:00 PM 022 1:36 CDT PM CDT Comment: Specimen Source Site: Tissue 2 Narrative [facility] - [facility] - 03/12/2022 2:02 PM CDT Bacterial Culture: Placed in Bactec aero bic and Bactec anaerobic bottles Cyrus Polk M.D. LAB MICROBIOLOGY - GENERAL O RDERABLES Performing Organization Address City/State/ZIP Code Phon e Number [facility] - [address] [place] [address] [facility] [place] [address] [facility] 200 [facility] Surgical Pathology, Frozen Lab (02/26/2022 1:00 PM CDT) Component Value Ref Test Analysis Performed Pathologis t Range Method Time At [facility] 03/01/2022 METH 3:43 PM CDT Participated in [...] permanent sections. ??Grossed by Nan Ledezma M.S., PA([facility] Block Summary A Left shoulder 03/01/2022 [...] LAB SURG PATH ORDERABLES Performing Organization Address City/State/[facility] Code Phon e Number [facility] - [address] [place], [place] [address] [facility] [place] [address] [facility] [address] [...] of calcium (TUMS) 1007 (Given - Provider: Catalnia Mccloud R.N.) 400 mg of calcium, oral, Every 2 hour [place] N, indigestion, Starting on Tue02/26/22 at 1451, [...] documented as of this encounter Care Teams Seafood And Service Meat Manager Relationship Specialty Start Date End Date Elsewhere, Pcp PCP - General Family Medicine 12/25/21 documented as of this encounter
--- OUTSIDE RECORDS SUMMARY | 2022-08-01 07:42 | XMS_ITS | Encounter Summary ---
:1965 Author Organization [facility] Address [address] [place] [address] Care Team Providers Name Role Phone Elsewhere, Pcp Primary Care Provider Unavailable Encounter Details Date Type Department Care Team Description 03/19/2022 Clinical Communication Department of Cyrus Polk Orthopedic Surgery in [place] Sou[place], [place] [address] [place] [address] 200 [place] [address] [phone] Social History Tobacco Use Types Packs/Day Years [...] you attend protestant or Patient refused 2021 protestant services? Do [...] Have discussed this situation with the O.R. appliance service supervisor, the A.M. admission Import Manager, and the Outpatient Import Manager and no one can locate this remote [...] Please return a call to her at [phone] documented in this encounter Plan of Treatment Not on filedocumented as of this encounter Visit Diagnoses Not on filedocumented in this encounter Additional Health Concerns Assessment Noted Time PHQ-9 Depression Total Score: 16 02/11/2021 12:00 AM C DT documented as of this encounter Care Teams Transformation Consultant Relationship Specialty Start Date End Date Elsewhere, Pcp PCP - General Family Medicine 12/25/21 documented as of this encounter
--- OUTSIDE RECORDS SUMMARY | 2022-08-01 07:42 | XMS_ITS | Encounter Summary ---
:1965 Author Organization [facility] Address [address] [place] [address] Care Team Providers Name Role Phone Elsewhere, Pcp Primary Care Provider Unavailable Encounter Details Date Type Department Care Team Description 03/12/2022 Orders Only Department of Melissa Mcdonald Arthroplas ty Total Orthopedic Surgery in M.D. Should er Replacement [place], [place] Status Post Left [address] [facility] (Primary Dx) [place] [address] Social History Tobacco Use Types [...] you attend mormonism or Patient refused 2021 anabaptism services? Do [...] as of this encounter Care Teams Motor Builder Assembler Relationship Specialty Start Date End Date Elsewhere, Pcp PCP - General Family Medicine 12/25/21 documented as of this encounter
--- OUTSIDE RECORDS SUMMARY | 2022-08-01 07:42 | XMS_ITS | Encounter Summary ---
:1965 Author Organization [facility] Address [address] [place] [address] Care Team Providers Name Role Phone Elsewhere, Pcp Primary Care Provider Unavailable Reason for Visit Reason Comments pre op orders Encounter Details Date Type Department Care Team Description 04/02/2022 Clinical Communication Department of Cyrus Polk op orders Orthopedic Surgery in [place], [place] [address] [place] [address] 200 [place] [address] [phone] Social History Tobacco Use Types Packs/Day Years [...] you attend taoism or Patient refused 2021 denominational services? Do [...] documented as of this encounter Care Teams Equipment Service Associate Relationship Specialty Start Date End Date Elsewhere, Pcp PCP - General Family Medicine 12/25/21 documented as of this encounter
--- OUTSIDE RECORDS SUMMARY | 2022-08-01 07:42 | XMS_ITS | Encounter Summary ---
:[address] [facility] Address [address] [place] [address] Care Team Providers Name Role Phone Elsewhere, Pcp Primary Care Provider Unavailable Reason for Visit Outpatient (Routine) - Closed Specialty Diagnoses / Procedures Referred By Contact Refer red To Contact Diagnoses Painful Total Joint Arthroplasty Initial ([facility]) Alfredo Herrera [place] Procedures ORS US-Guided aspiration/injection O.P.A.-C. [address] [place] [phone] Referral ID Status Reason Start Date Expiration Date Visits Requ ested Visits Authorized [id number] Closed 04/02/2022 04/02/2023 1 1 Encounter Details Date Type Department Care Team Description 04/14/2022 Procedure visit Department of Jey Monzon To beto Joint Orthopedic Surgery in [place] Celaya Arthroplasty Initial [place], [place] [address] [place] [address] ([facility]) [address] [place] [phone] Social History Tobacco Use Types Packs/Day Years [...] you attend alevism or Patient refused 2021 mormonism services? Do you belong to any clubs or No 05/17/2022 organizations such as alevism groups, unions, [employer] or athletic groups, or school groups? How [...] was performed by Carmelo Guo M.D., M.S. ([phone]). HISTORY: The patient was recently evaluated for [...] and sterile ultrasound gel were used. Machine: [employer] Transducer: 6-15 MHz linear transducer. Patient position: [...] Mosquera Barriers to learning: None Preferred language: Vietnamese Learning preferences include: Seeing and doing. Discussed: [...] preparation: chlorhexidine/alcohol Images have been archived in [employer]: click the 'Dept Filter' button in [employer], then the 'Clear (ShowAll)' button, then OK. [...] procedure a re in the results section. [facility] ASP/INJ Routine 04/14/2022 9:30 AM Painful Total Aliza nt Results for this MJR JT W US CDT Arthroplasty Initial procedu re are in (HCC) the results section. documented in this encounter Results Bacteria Cult, Aerobe / Anaerobe+Susc (04/14/2022 9:35 AM CDT) [facility] Method Time Signature Bacteria Cult, No growth 04/28/2022 DTL Aerobe/Anaerob after 14 11:02 AM CDT e+Susc days of incubation. Specimen Anatomical Collection Method Collection Time Receive d Time (Source) Location / / Volume Laterality Synovial Fluid, 04/14/2022 9:35 AM 2021 Left Shoulder CDT 10:18 AM CDT Comment: Specimen Source Site: Aspirate Narrative [facility] - 04/28/2022 11:02 AM CDT Bacterial Culture: Received Bactec aerob ic and Bactec anaerobic bottles Alfredo Kamara LAB MICROBIOLOGY - GENERAL O RDERABLES Performing Organization Address City/State/ZIP Code Phon e Number [facility] - [address] [place] [address] [facility] [place] [address] [facility] 200 [facility] Cell Count and Differential, Body Fluid (04/14/2022 9:35 AM CDT) [facility] Method Time Signature Fluid Type Right 04/14/2022 [...] Its performance characteri stics were determined by [facility] in a manner co nsistent [...] Organization Address City/State/ZIP Code Phon e Number [facility] - [address] [place], [place] [address] [place] [address] [facility] [address] [facility] ARTH[facility] ASP/INJ MJR JT W US (04/14/2022 [...] 3. Priya Blue, L.A.T., A.T.C. 4. Pete Kyae, L.A.T., A.T.C. PROCEDURE DETAILS Procedure Location shoulder [...] documented as of this encounter Care Teams Shade Classifier Relationship Specialty Start Date End Date Elsewhere, Pcp PCP - General Family Medicine 12/25/21 documented as of this encounter
--- OUTSIDE RECORDS SUMMARY | 2022-08-01 07:42 | XMS_ITS | Encounter Summary ---
:1965 Author Organization [facility] Address [address] [place] [address] Care Team Providers Name Role Phone Elsewhere, Pcp Primary Care Provider Unavailable Encounter Details Date Type Department Care Team Description 03/08/2022 Documentation Department of Orthopedic Melissa Mcdonald M.D. Surgery in [place], [place] [address] [place] [address] Social History Tobacco Use [...] you attend orthodox or Patient refused 2021 christian services? Do [...] of this encounter Care Teams Director Of Speech Pathology Relationship Specialty Start Date End Date Elsewhere, Pcp PCP - General Family Medicine 12/25/21 documented as of this encounter
--- OUTSIDE RECORDS SUMMARY | 2022-08-01 07:42 | XMS_ITS | Encounter Summary ---
:1965 Author Organization [facility] Address [address] [place] [address] Care Team Providers Name Role Phone Elsewhere, Pcp Primary Care Provider Unavailable Encounter Details Date Type Department Care Team Description 03/02/2022 Orders Only Pharmacy Prior Auth [place] Frias [phone] Social History Tobacco Use Types Packs/Day Years [...] you attend latter-day or Patient refused 2021 shinto services? Do [...] documented as of this encounter Care Teams Licensed Life And Health Agent Relationship Specialty Start Date End Date Elsewhere, Pcp PCP - General Family Medicine 12/25/21 documented as of this encounter
--- OUTSIDE RECORDS SUMMARY | 2022-08-01 07:42 | XMS_ITS | Encounter Summary ---
:1965 Author Organization [facility] Address [address] [place] [address] Care Team Providers Name Role Phone Elsewhere, Pcp Primary Care Provider Unavailable Encounter Details Date Type Department Care Team Description 03/11/2022 Documentation Department of Orthopedic Melissa Mcdonald M.D. Surgery in [place], [place] [address] [place] [address] Social History Tobacco Use [...] you attend lutheran or Patient refused 2021 christianity services? Do [...] Mr. Mosquera if he could come to [place] to pharmacy picking tech a new sling tomorrow and he states [...] documented as of this encounter Care Teams Skin Fitter Relationship Specialty Start Date End Date Elsewhere, Pcp PCP - General Family Medicine 12/25/21 documented as of this encounter
--- OUTSIDE RECORDS SUMMARY | 2022-08-01 07:42 | XMS_ITS | Encounter Summary ---
:1965 Author Organization [facility] Address [address] [place] [address] Care Team Providers Name Role Phone Elsewhere, Pcp Primary Care Provider Unavailable Reason for Referral Outpatient (Routine) - Closed Specialty Diagnoses / Procedures Referred By Contact Refer red To Contact Diagnoses Arthroplasty Total Shoulder Replacement Status Post Left Alfredo Herrera O.P.A.-C. [facility] Procedures DX Shoulder Left Ingrowth Series 5 Views [address] [place] [phone] Referral ID Status Reason Start Date Expiration Date Visits Requ ested Visits Authorized [id number] Closed 02/25/2022 02/25/2023 1 1 Reason for Visit Outpatient (Routine) - Closed Specialty Diagnoses / Procedures Referred By Contact Refer red To Contact Diagnoses Arthroplasty Total Shoulder Replacement Status Post Left Alfredo Herrera O.P.A.-C. [facility] Procedures DX Shoulder Left Ingrowth Series 5 Views [address] [place] [phone] Referral ID Status Reason Start Date Expiration Date Visits Requ ested Visits Authorized [id number] Closed 02/25/2022 02/25/2023 1 1 Encounter Details Date Type Department Care Team Description 04/02/2022 Hospital Encounter Department of Alfredo Herrera Total Radiology, Anh Gonzales [facility], in [address] [place] [address] Status Post Left [facility] [phone] [place], [place] (Work) [phone] Social History Tobacco Use Types Packs/Day Years [...] you attend latter-day or Patient refused 2021 caodaism services? Do [...] THC multivit-min/iron/folic/ Take 1 tablet by 0 [id number] (HAIR, SKIN AND mouth daily. NAILS ADVANCED [...] documented as of this encounter Care Teams Job Service Consultant Relationship Specialty Start Date End Date Elsewhere, Pcp PCP - General Family Medicine 12/25/21 documented as of this encounter
--- OUTSIDE RECORDS SUMMARY | 2022-08-01 07:42 | XMS_ITS | Encounter Summary ---
:1965 Author Organization [facility] Address [address] [place] [address] Care Team Providers Name Role Phone Elsewhere, Pcp Primary Care Provider Unavailable Encounter Details Date Type Department Care Team Description 03/03/2022 Orders Only Pharmacy Prior Auth Usha Maurer [phone] Social History Tobacco Use Types Packs/Day Years [...] you attend rastafarian or Patient refused 2021 islam services? Do [...] as of this encounter Care Teams Manager Medicare Marketing Relationship Specialty Start Date End Date Elsewhere, Pcp PCP - General Family Medicine 12/25/21 documented as of this encounter
--- OUTSIDE RECORDS SUMMARY | 2022-08-01 07:42 | XMS_ITS | Encounter Summary ---
:1965 Author Organization [facility] Address [address] [place] [address] Care Team Providers Name Role Phone Elsewhere, Pcp Primary Care Provider Unavailable Encounter Details Date Type Department Care Team Description 03/05/2022 Clinical Communication Pharmacy Prior Auth Ben Cihno RO M.D. [phone] Social History Tobacco Use Types Packs/Day Years [...] you attend zoroastrian or Patient refused 2021 sabianism services? Do [...] documented as of this encounter Care Teams Pasteurizing Supervisor Relationship Specialty Start Date End Date Elsewhere, Pcp PCP - General Family Medicine 12/25/21 documented as of this encounter
--- OUTSIDE RECORDS SUMMARY | 2022-08-01 07:42 | XMS_ITS | Encounter Summary ---
:1965 Author Organization [facility] Address [address] [place] [address] Care Team Providers Name Role Phone Elsewhere, Pcp Primary Care Provider Unavailable Encounter Details Date Type Department Care Team Description 03/08/2022 Orders Only Department of Orthopedic Melissa Mcdonald M.D. Surgery in [place], [place] [address] [place] [address] Social History Tobacco Use [...] you attend mu-ism or Patient refused 2021 synagogue services? Do [...] as of this encounter Care Teams Structural Iron Worker Relationship Specialty Start Date End Date Elsewhere, Pcp PCP - General Family Medicine 12/25/21 documented as of this encounter
--- OUTSIDE RECORDS SUMMARY | 2022-08-01 07:42 | XMS_ITS | Encounter Summary ---
:1965 Author Organization [facility] Address [address] [place] [address] Care Team Providers Name Role Phone Elsewhere, Pcp Primary Care Provider Unavailable Encounter Details Date Type Department Care Team Description 03/02/2022 Orders Only Pharmacy Prior Auth Sarmad Solano [phone] Social History Tobacco Use Types Packs/Day Years [...] you attend pentecostalism or Patient refused 2021 methodist services? Do [...] documented as of this encounter Care Teams Clinic Mgr Relationship Specialty Start Date End Date Elsewhere, Pcp PCP - General Family Medicine 12/25/21 documented as of this encounter
--- OUTSIDE RECORDS SUMMARY | 2022-08-01 07:42 | XMS_ITS | Encounter Summary ---
:1965 Author Organization [facility] Address [address] [place] [address] Care Team Providers Name Role Phone Elsewhere, Pcp Primary Care Provider Unavailable Encounter Details Date Type Department Care Team Description 02/26/2022 Clinical Communication [facility] Janet Sarmiento, [address] [facility].Ph.T. [place], [place] [phone] (Work) [phone] Social History Tobacco Use Types Packs/Day Years [...] you attend yazdanism or Patient refused 2021 restoration services? Do [...] documented as of this encounter Care Teams Policy Director Relationship Specialty Start Date End Date Elsewhere, Pcp PCP - General Family Medicine 12/25/21 documented as of this encounter
--- OUTSIDE RECORDS SUMMARY | 2022-08-01 07:42 | XMS_ITS | Encounter Summary ---
:1965 Author Organization [facility] Address [address] [place] [address] Care Team Providers Name Role Phone Elsewhere, Pcp Primary Care Provider Unavailable Reason for Visit Reason Comments Medication Problem Encounter Details Date Type Department Care Team Description 03/01/2022 Clinical Communication Department of Jose Polk Orthopedic Surgery Cyrus Souza M.D. in [place], [facility] [place], [place] [address] [place] [phone] [place], [place] [phone] (Work) [phone] Social History Tobacco Use Types Packs/Day Years [...] you attend episcopal or Patient refused 2021 samaritan services? Do [...] 12:04 PM CDT PIPER. Received fax from [employer] 03-03-22 indicating the doxycycline [facility] [address] 100 mg tab is approved through 11/27/2022. Telephone Encounter - Cyrus Polk M.D. - 03/02/2022 7:45 AM CDT Please see below Thank you Telephone Encounter - Radha Suh - 03/01/2022 3:36 PM CDT Regina, pharmacist working for the insurance company calls regarding the doxycycline hyclate (DORYX) 100 mg EC tablet [[id number]] Script. This is not in their formulary. She has several questions to ask to consider approving this. Please call Regina back [phone], ext [phone] Reference # [id number] documented in this encounter Plan of Treatment Not on filedocumented as of this encounter Visit Diagnoses Not on filedocumented in this encounter Additional Health Concerns Assessment Noted Time PHQ-9 Depression Total Score: 16 02/11/2021 12:00 AM C DT documented as of this encounter Care Teams Machine Maintenance Relationship Specialty Start Date End Date Elsewhere, Pcp PCP - General Family Medicine 12/25/21 documented as of this encounter
--- OUTSIDE RECORDS SUMMARY | 2022-08-01 07:42 | XMS_ITS | Encounter Summary ---
:1965 Author Organization [facility] Address [address] [place] [address] Care Team Providers Name Role Phone Elsewhere, Pcp Primary Care Provider Unavailable Encounter Details Date Type Department Care Team Description 03/02/2022 Orders Only Pharmacy Prior Auth Ana Rosa Ying [phone] Social History Tobacco Use Types Packs/Day Years [...] you attend sikh or Patient refused 2021 alevism services? Do [...] documented as of this encounter Care Teams Analytical Data Miner Relationship Specialty Start Date End Date Elsewhere, Pcp PCP - General Family Medicine 12/25/21 documented as of this encounter
--- OUTSIDE RECORDS SUMMARY | 2022-08-01 07:42 | XMS_ITS | Encounter Summary ---
:1965 Author Organization [facility] Address [address] [place] [address] Care Team Providers Name Role Phone Elsewhere, Pcp Primary Care Provider Unavailable Encounter Details Date Type Department Care Team Description 03/16/2022 Clinical Communication Department of Cyrus Polk Orthopedic Surgery in Lilian Souza [place], [place] [address] [place] [address] 200 [place] [phone] [phone] Social History Tobacco Use Types Packs/Day Years [...] you attend hindu or Patient refused 2021 jew services? Do [...] - 03/16/2022 12:15 PM CDT Michael, patient's caser in from [facility], is calling hoping to speak to someone on Dr. Polk's surgical team to ensure that the patient is receiving the correct post-op care. Patient is set up for post op appointments at the beginning of March here. However, Michael is looking to speak to someone over the phone to ensure the patient is on the right track. Please call [phone]. Thank you. documented in this encounter Plan of Treatment Not on filedocumented as of this encounter Visit Diagnoses Not on filedocumented in this encounter Additional Health Concerns Assessment Noted Time PHQ-9 Depression Total Score: 16 02/11/2021 12:00 AM C DT documented as of this encounter Care Teams Assembly Manager Relationship Specialty Start Date End Date Elsewhere, Pcp PCP - General Family Medicine 12/25/21 documented as of this encounter
--- OUTSIDE RECORDS SUMMARY | 2022-08-01 07:43 | XMS_ITS | Encounter Summary ---
:1965 Author Organization [facility] Address [address] [place] [address] Care Team Providers Name Role Phone Elsewhere, Pcp Primary Care Provider Unavailable Encounter Details Date Type Department Care Team Description 02/26/2022 Anesthesia Event RST [facility] OR Kaushik Carpenter, [address] [facility] M.B., [place] [address] [address] [facility] [phone] [place] [phone] (Wo rk) Anesthesia Record Procedure Summary Procedure [...] h andoff to the receiving staff during [facility] we 1. Identified the patient 2. Ident [...] you attend alevism or Patient refused 2021 judaism services? Do [...] or the highest technical, or vocational p [facility] degree you have received? Sex Assigned at Date Recorded Female 03/01/2019 10:12 AM CDT documented as of this encounter OR Notes Anesthesia Postprocedure Evaluation - Kaushik Carpenter M.B., Ch.B. - 02/26/2022 3:19 PM CDT Patient: Angie Mosquera Procedure Summary Date: 02/26/22 Room / Location: [address] / [facility] in [place], [place] Anesthesia Start: 1212 Anesthesia Stop: 143 [...] ETT location: oral VL device: glide scope [place] scope blade size: 3 Adult tube size: [...] Pre-op diagnosis: Degenerative joint disease left. Location: [address] / [facility] in [place], [place] Providers: Cyrus Polk M.D. Pertinent components [...] with patient /legal guardian or through an fur farmer. Risks/Benefits/Alternatives of Blood transfusion discussed with patient [...] fellow participated in the procedure, and the wardrobe image consultant was present for the entire procedure. [...] procedure ar e in the results section. WI US GUIDE PLC NDL Routine 02/26/2022 11:53 Resu lts for this AM CDT procedure are i n the results section. WI INJ ANES BRACHIAL Routine 02/26/2022 11:53 Res [...] Kaushik Carpenter M.B., Ch.B. 3. Juana Silva TILE PROFESSIONAL, WAREHOUSE FOREMAN Patient location during procedure: OR / Procedure Area PROCEDURE DETAILS: Mask difficulty assessment: easy mask Final airway type: video laryngoscope Laryngeal Manipulation: no ?? Final best view of glottic structures - Cormack/Lehane Score: grade 1 ETT location: oral VL device: glide scope [place] scope blade size: 3 Adult tube size: [...] ATTESTATION STATEMENT Kaushik Carlos, Ch.B. ANESTHESIA ORDERABLES WI INJ ANES BRACHIAL PLEX, WI US GUIDE PLC NDL, MC ANE NERVE [...] fellow participated in the procedure, and the wardrobe image consultant was present for the entire procedure. [...] of this encounter Care Teams Director Of Global Marketing Relationship Specialty Start Date End Date Elsewhere, Pcp PCP - General Family Medicine 12/25/21 documented as of this encounter
--- OUTSIDE RECORDS SUMMARY | 2022-08-01 07:43 | XMS_ITS | Encounter Summary ---
:1965 Author Organization [facility] Address [address] [place] [address] Care Team Providers Name Role Phone Elsewhere, [...] you attend baptist or Patient refused 2021 anabaptist services? Do [...] documented as of this encounter Care Teams Rate Supervisor Relationship Specialty Start Date End Date Elsewhere, Pcp PCP - General Family Medicine 12/25/21 documented as of this encounter
--- OUTSIDE RECORDS SUMMARY | 2022-08-01 07:43 | XMS_ITS | Encounter Summary ---
:1965 Author Organization [facility] Address [address] [place] [address] Care Team Providers Name Role Phone Elsewhere, Pcp Primary Care Provider Unavailable Reason for Visit Reason Comments OPAT Normal Labs Encounter Details Date Type Department Care Team Description 01/15/2022 Clinical Communication Section of Madhav Rizo (Normal Labs) Infectious Diseases M, M.P.H., in [address] 200 [place] [phone] Social History Tobacco Use Types Packs/Day Years [...] you attend confucianist or Patient refused 2021 latter-day services? Do [...] Rizo M.P.H., R.N. - 01/15/2022 3:24 PM C APPLICATION DEVELOPER OPAT NOTE Infusion Provider: Dennis TA [facility], phone: [phone], fax: [phone] Labs and site care at [facility], phone: [phone] Antimicrobial(s) currently prescribed: See Med List Hyperlink in note Firm stop date: 02/11/22 Lab results from 01/14/2022 are viewable in the MCR record--listed as External Labs (received via fax, which has been uploaded to Document Viewer/Media) Interpretation and action: The labs were satisfactory and acceptable. No change in plan as per OPAT Practice Guideline. C APPLICATION DEVELOPER documented in this encounter Plan of [...] Signature EXT ALT 14 4 - 35 [facility] Specimen (Source) Anatomical Location Collection Method / Collectio n Time Received Time / Laterality Volume Blood (Blood, Venous) Laly Ward APRN RBrittonN. LAB BLOOD ADD-ON Performing Organization Address City/[facility]/ZIP Code Phon e Number [facility] [address] [place] [address] Creatinine with Estimated GFR (01/14/2022) athologist Signature EXT Creatinine 0.6 0.5 - 1.5 [place] mg/dL [facility] Specimen (Source) Anatomical Location Collection Method / Collectio n Time Received Time / Laterality Volume Blood (Blood, Venous) Laly Ward APRN R.N. LAB BLOOD ADD-ON Performing Organization Address City/[facility]/ZIP Code Phon e Number [facility] [address] [place] [address] (ABNORMAL) CBC with Differential, Blood (01/14/2022) athologist Signature EXT Platelet 406 150 - 450 [place] Count [facility] EXT Hemoglobin 9 (A) 12 - 15.5 [facility] EXT Absolute 3.49 1.7 - 7 [place] Neutrophils [facility] EXT White Blood 5.7 5.0 - 10.0 [place] Cell (WBC) Count [facility] Specimen (Source) Anatomical Location Collection Method / Collectio n Time Received Time / Laterality Volume Blood (Blood, Venous) Narrative This result has an attachment that is no t available. Laly Ward APRN R.N. LAB BLOOD ADD-ON Performing Organization Address City/[facility]/ZIP Code Phon e Number [facility] [address] [place] [address] documented in this encounter Visit Diagnoses Not on filedocumented in this encounter Additional Health Concerns Assessment Noted Time PHQ-9 Depression Total Score: 16 02/11/2021 12:00 AM C DT documented as of this encounter Care Teams Chandelier Maker Relationship Specialty Start Date End Date Elsewhere, Pcp PCP - General Family Medicine 12/25/21 documented as of this encounter
--- OUTSIDE RECORDS SUMMARY | 2022-08-01 07:43 | XMS_ITS | Encounter Summary ---
:1965 Author Organization [facility] Address [address] [place] [address] Care Team Providers Name Role Phone Elsewhere, Pcp Primary Care Provider Unavailable Reason for Referral MRI/CAT/PET Scan (Routine) - Closed Specialty Diagnoses / Procedures Referred By Contact Refer red To Contact Radiology Diagnoses Painful Total Joint Arthroplasty Initial ([facility]) Michael Chino M.D. [facility] Procedures CT Shoulder Left without IV Contrast [address] [place] [phone] Referral ID Status Reason Start Date Expiration Date Visits Requ ested Visits Authorized [id number] Closed 02/25/2022 02/25/2023 1 1 Reason for Visit MRI/CAT/PET Scan (Routine) - Closed Specialty Diagnoses / Procedures Referred By Contact Refer red To Contact Radiology Diagnoses Painful Total Joint Arthroplasty Initial ([facility]) Michael Chino M.D. [facility] Procedures CT Shoulder Left without IV Contrast [address] [place] [phone] Referral ID Status Reason Start Date Expiration Date Visits Requ ested Visits Authorized [id number] Closed 02/25/2022 02/25/2023 1 1 Encounter Details Date Type Department Care Team Description 02/25/2022 Hospital Encounter Department of Michael Chino Total Joint Radiology, Severiano Celaya M.D. Arthropl [facility]) [place], [place] [address] [place] [phone] Social History Tobacco Use Types Packs/Day Years [...] you attend protestant or Patient refused 2021 roman catholic services? [...] THC multivit-min/iron/folic/ Take 1 tablet by 0 [id number] (HAIR, SKIN AND mouth daily. NAILS ADVANCED [...] as of this encounter Care Teams Associate Music Professor Relationship Specialty Start Date End Date Elsewhere, Pcp PCP - General Family Medicine 12/25/21 documented as of this encounter
--- OUTSIDE RECORDS SUMMARY | 2022-08-01 07:43 | XMS_ITS | Encounter Summary ---
:1965 Author Organization [facility] Address [address] [place] [address] Care Team Providers Name Role Phone Elsewhere, Pcp Primary Care Provider Unavailable Reason for Visit Reason Comments OPAT Intervention Encounter Details Date Type Department Care Team Description 01/28/2022 Clinical Communication Section of Ruth Eddy (Intervention Infectious T, R.N. ) Diseases in [address] [place] [phone] [place] [address] [place], [place] (Work) [phone] Social History Tobacco Use Types Packs/Day Years [...] you attend jain or Patient refused 2021 tenriism services? Do [...] are for now to obtain ALP trend. ITY SPECIALIST Telephone Encounter - Desirae Domingo R.N. - 02/01/2022 12:11 PM CST Maritza calls from [place] regarding Alk phos from 01/28. It is greater than 1.5 the upper limit of normal. ITY SPECIALIST Telephone Encounter - Su Greene, Pharm.D., R.Ph. - 01/29/2022 8:49 AM CST Reviewed WBC trend including WBC on 01/28, no changes at this time, see note from my colleague Jennifer Roca for details. ITY SPECIALIST Telephone Encounter - Ruth Eddy R.N. - 01/29/2022 8:14 AM CST OPAT NOTE ?? Infusion Provider: [facility], phone: [phone], fax: [phone] Labs and site care at [facility], phone: [phone] Antimicrobial(s) currently prescribed: See Med List Hyperlink in note Firm stop date: 02/11/22 ?? Lab results from are viewable in the MCR record--listed as External Labs (received via fax, which has been uploaded to Document Viewer/Media) ?? Interpretation and action: The labs were reviewed. WBC and ANC are improving. I will send this to the provider for review. ITY SPECIALIST Telephone Encounter - Jennifer Roca Pharm.D., R.Ph. - 01/28/2022 10:21 AM UTILITY SPECIALIST Pertinent labs and antimicrobial regimen as indicated [...] time. For monitoring: continue weekly OPAT labs. ITY SPECIALIST Telephone Encounter - Ruth Eddy RBrittonN. - 01/28/2022 9:40 AM CST OPAT NOTE Infusion Provider: [facility], phone: [phone], fax: [phone] Labs and site care at [facility], phone: [phone] Antimicrobial(s) currently prescribed: See Med List Hyperlink in note Firm stop date: 02/11/22 Lab results from 01/21/2022 are viewable in the MCR record--listed as External Labs (received via fax, which has been uploaded to Document Viewer/Media) Interpretation and action: The labs were reviewed. WBC is 3.6 and ANC is 1.42. Alk Phos was not done. [facility]. Orders were sent to [facility] that included alk phos that will be drawn today, 01-28-2022. ITY SPECIALIST documented in this encounter Plan of Treatment Not on filedocumented as of this encounter Procedures Procedure Name Priority Date/Time Associated Comments Diagnosis CBC WITH DIFFERENTIAL, B Routine 01/28/2022 3:00 Results for this PM UTILITY SPECIALIST procedure are i n the results section. ALANINE AMINOTRANSFERASE Routine 01/28/2022 3:00 Results for this (ALT), S/P PM UTILITY SPECIALIST procedure are i n the results section. ALKALINE PHOSPHATASE, Routine 01/28/2022 3:00 Res ults for this S/P PM UTILITY SPECIALIST procedure are i n the results section. CREATININE WITH EGFR, Routine 01/28/2022 3:00 Res ults for this S/P PM UTILITY SPECIALIST procedure are i n the results section. [...] Results ALT (Alanine Aminotransferase) (01/28/2022 3:00 PM UTILITY SPECIALIST) athologist Signature EXT ALT 20 4 - 35 [facility] Specimen (Source) Anatomical Location Collection Method / Collectio n Time Received Time / Laterality Volume Blood (Blood, Venous) Laly Ward APRN, RBrittonN. LAB BLOOD ADD-ON Performing Organization Address City/State/ZIP Code Phon e Number [facility] (ABNORMAL) Alkaline Phosphatase (01/28/2022 3:00 PM UTILITY SPECIALIST) athologist Signature EXT Alkaline 97 (A) 40 - 50 [facility] Phosphatase LAB Specimen (Source) Anatomical Location Collection Method / Collectio n Time Received Time / Laterality Volume Blood (Blood, Venous) Laly Ward APRN RBrittonNBritton LAB BLOOD ADD-ON Performing Organization Address City/State/ZIP Code Phon e Number [facility] Creatinine with Estimated GFR (01/28/2022 3:00 PM UTILITY SPECIALIST) athologist Signature EXT Creatinine 0.6 0.5 - [...] CBC with Differential, Blood (01/28/2022 3:00 PM UTILITY SPECIALIST) Analysis Performed At Patho logist Time Signature [...] as of this encounter Care Teams Retail Associate Relationship Specialty Start Date End Date Elsewhere, Pcp PCP - General Family Medicine 12/25/21 documented as of this encounter
--- OUTSIDE RECORDS SUMMARY | 2022-08-01 07:43 | XMS_ITS | Encounter Summary ---
:1965 Author Organization [facility] Address [address] [place] [address] Care Team Providers Name Role Phone Elsewhere, Pcp Primary Care Provider Unavailable Reason for Visit Reason Comments OPAT Monitoring Complete Encounter Details Date Type Department Care Team Description 02/12/2022 Clinical Communication Section of Kylie Siddiqui (Monitoring Infectious Diseases M, R.N. Complete) in [facility] [phone] [place] (Work) [address] [place] [phone] Social History Tobacco Use Types Packs/Day Years [...] you attend lutheran or Patient refused 2021 mandaen services? Do [...] Complete) Information Discussed Princess, a nurse from [place], called to see if any labs need [...] documented as of this encounter Care Teams Cloth Grader Relationship Specialty Start Date End Date Elsewhere, Pcp PCP - General Family Medicine 12/25/21 documented as of this encounter
--- OUTSIDE RECORDS SUMMARY | 2022-08-01 07:43 | XMS_ITS | Encounter Summary ---
:1965 Author Organization [facility] Address [address] [place] [address] Care Team Providers Name Role Phone Elsewhere, Pcp Primary Care Provider Unavailable Reason for Visit Reason Comments Labs Only Encounter Details Date Type Department Care Team Description 02/05/2022 Documentation Section of Infectious Amna Kaur , Labs Only Diseases in [facility] [address] [facility] 200 [place] [phone] Social History Tobacco Use Types Packs/Day Years [...] you attend zoroastrian or Patient refused 2021 pentecostal services? Do [...] PM CST Labs entered at this time. ITY CONTROL PUNCHER documented in this encounter Plan of Treatment Not on filedocumented as of this encounter Procedures Procedure Name Priority Date/Time Associated Comments Diagnosis CBC WITH DIFFERENTIAL, B Routine 02/04/2022 3:06 Results for this PM DENSITY CONTROL PUNCHER procedure are i n the results section. ALANINE AMINOTRANSFERASE Routine 02/04/2022 3:06 Results for this (ALT), S/P PM DENSITY CONTROL PUNCHER procedure are i n the results section. ALKALINE PHOSPHATASE, Routine 02/04/2022 3:06 Res ults for this S/P PM DENSITY CONTROL PUNCHER procedure are i n the results section. CREATININE WITH EGFR, Routine 02/04/2022 3:06 Res ults for this S/P PM DENSITY CONTROL PUNCHER procedure are i n the results section. documented in this encounter Results ALT (Alanine Aminotransferase) (02/04/2022 3:06 PM DENSITY CONTROL PUNCHER) P athologist Signature EXT ALT 20 4 - 35 OTHER (SPECIFY IN E D TECH) Specimen (Source) Anatomical Location Collection Method / Collectio n Time Received Time / Laterality Volume Blood (Blood, Venous) Resulting Agency Comment [facility] Gucci Salvador M.D. LAB BLOOD ADD-ON Performing Organization Address City/State/ZIP Code Phon e Number OTHER (SPECIFY IN E D TECH) OTHER (SPECIFY IN E D TECH) N/A Alkaline Phosphatase (02/04/2022 3:06 PM DENSITY CONTROL PUNCHER) P athologist Signature EXT Alkaline 102 40 - 150 OTHER (SPECIFY Phosphatase IN E D TECH) Specimen (Source) Anatomical Location Collection Method / Collectio n Time Received Time / Laterality Volume Blood (Blood, Venous) Resulting Agency Comment [facility] Gucci Salvador M.D. LAB BLOOD ADD-ON Performing Organization Address City/State/ZIP [facility] Phon [place] Number OTHER (SPECIFY IN E D TECH) OTHER (SPECIFY IN E D TECH) N/A Creatinine with Estimated GFR (02/04/2022 3:06 PM DENSITY CONTROL PUNCHER) P athologist Signature EXT Creatinine 0.7 0.5 - 1.5 OTHER (SPECIFY mg/dL IN E D TECH) Specimen (Source) Anatomical Location Collection Method / Collectio n Time Received Time / Laterality Volume Blood (Blood, Venous) Resulting Agency Comment [facility] Gucci Salvador M.D. LAB BLOOD ADD-ON Performing Organization Address City/[facility] Phon e Number OTHER (SPECIFY IN E D TECH) OTHER (SPECIFY IN E D TECH) N/A (ABNORMAL) CBC with Differential, Blood (02/04/2022 3:06 PM DENSITY CONTROL PUNCHER) P athologist Signature EXT Platelet 253 150 - 450 OTHER Count (SPECIFY IN E D TECH) EXT Hemoglobin 9.1 (A) 12 - 15.5 OTHER (SPECIFY IN E D TECH) EXT White Blood 4.0 (A) 5.0 - 10.0 OTHER Cell (WBC) (SPECIFY IN Count E D TECH) Specimen (Source) Anatomical Location Collection Method / Collectio n Time Received Time / Laterality Volume Blood (Blood, Venous) Narrative This result has an attachment that is no t available. Resulting Agency Comment [facility] Gucci Hernandezk Lilian LAB BLOOD ADD-ON Performing Organization Address City/State/ZIP [facility] Phon e Number OTHER (SPECIFY IN E D TECH) OTHER (SPECIFY IN E D TECH) N/A documented in this encounter Visit Diagnoses Not on filedocumented in this encounter Additional Health Concerns Assessment Noted Time PHQ-9 Depression Total Score: 16 02/11/2021 12:00 AM C DT documented as of this encounter Care Teams Fishing Boat Captain Relationship Specialty Start Date End Date Elsewhere, Pcp PCP - General Family Medicine 12/25/21 documented as of this encounter
--- OUTSIDE RECORDS SUMMARY | 2022-08-01 07:43 | XMS_ITS | Encounter Summary ---
:1965 Author Organization [facility] Address [address] [place] [address] Care Team Providers Name Role Phone Elsewhere, Pcp Primary Care Provider Unavailable Reason for Referral Outpatient (Routine) - Closed Specialty Diagnoses / Procedures Referred By Contact Refer red To Contact Diagnoses Arthroplasty Total Shoulder Replacement Status Post Left Alfredo Herrera O.P.A.-C. [facility] Procedures DX Shoulder Left Ingrowth Series [address] Views [address] [place] [phone] Referral ID Status Reason Start Date Expiration Date Visits Requ ested Visits Authorized [id number] Closed 02/25/2022 02/25/2023 1 1 Outpatient (Routine) - Closed Specialty Diagnoses / Procedures Referred By Contact Refer red To Contact Orthopedic Surgery Diagnoses Arthroplasty Total Shoulder Replacement Status Post Left Alfredo Herrera, [facility] Anh [address] [place] [phone] Referral ID Status Reason Start Date Expiration Date Visits Requ ested Visits Authorized [id number] Closed 02/25/2022 02/25/2023 1 1 Scheduling Instructions 6 wk f/u L TSA Reason for Visit Reason Comments Pre-visit Testing Orders Encounter Details Date Type Department Care Team Description 02/25/2022 Clinical Communication Department of Jam Pre- visit Testing Orthopedic Surgery Cyrus Souza M.D. Orders in [place], [address] [place], [place] [address] [facility] [address] [place], [place] [phone] (Work) [phone] Social History Tobacco Use Types Packs/Day Years [...] you attend hoahaoism or Patient refused 2021 hindu services? Do [...] Name Type Priority Associated Diagnoses Order [facility] Orthopedic Surgery Outpatient Referral Routine Arthroplasty [...] documented as of this encounter Care Teams Recreational Director Relationship Specialty Start Date End Date Elsewhere, Pcp PCP - General Family Medicine 12/25/21 documented as of this encounter
--- OUTSIDE RECORDS SUMMARY | 2022-08-01 07:43 | XMS_ITS | Encounter Summary ---
:1965 Author Organization [facility] Address [address] [place] [address] Care Team Providers Name Role Phone Elsewhere, Pcp Primary Care Provider Unavailable Encounter Details Date Type Department Care Team Description 02/26/2022 Clinical Communication [facility] Austyn Breaux, Pharmacy Umu Alejo [address] [facility] [address] Social History Tobacco Use Types [...] you attend uatsdin or Patient refused 2021 caodaism services? Do [...] documented as of this encounter Care Teams Regional Controller Relationship Specialty Start Date End Date Elsewhere, Pcp PCP - General Family Medicine 12/25/21 documented as of this encounter
--- OUTSIDE RECORDS SUMMARY | 2022-08-01 07:43 | XMS_ITS | Encounter Summary ---
:1965 Author Organization [facility] Address [address] [place] [address] Care Team Providers Name Role Phone Elsewhere, Pcp Primary Care Provider Unavailable Reason for Referral MRI/CAT/PET Scan (Routine) - Closed Specialty Diagnoses / Procedures Referred By Contact Refer red To Contact Radiology Diagnoses Painful Total Joint Arthroplasty Initial ([facility]) Michael Chino M.D. [facility] Procedures CT Shoulder Left without IV Contrast [address] [place] [address] Referral ID Status Reason Start Date Expiration Date Visits Requ ested Visits Authorized [id number] Closed 02/25/2022 02/25/2023 1 1 Encounter Details Date Type Department Care Team Description 02/25/2022 Orders Only Department of Michael Chino, Painful T otal Joint Orthopedic Surgery in [place]eri Arthro plasty Initial [place], [place] ([facility]) [address] [place] [address] Social History Tobacco Use Types Packs/Day Years [...] you attend hinduism or Patient refused 2021 latter-day services? Do you belong to any clubs or No 05/17/2022 organizations such as hinduism groups, [employer], [employer] or athletic groups, or school groups? How [...] documented as of this encounter Care Teams Top Screw Relationship Specialty Start Date End Date Elsewhere, Pcp PCP - General Family Medicine 12/25/21 documented as of this encounter
--- OUTSIDE RECORDS SUMMARY | 2022-08-01 07:43 | XMS_ITS | Encounter Summary ---
:1965 Author Organization [facility] Address [address] [place] [address] Care Team Providers Name Role Phone Elsewhere, Pcp Primary Care Provider Unavailable Encounter Details Date Type Department Care Team Description 01/08/2022 Orders Only Pharmacy Prior Auth RO Elsewhere, Pcp [phone] Social History Tobacco Use Types Packs/Day Years [...] you attend sabianism or Patient refused 2021 orthodox services? Do [...] of this encounter Care Teams Real Estate Legal Secretary Relationship Specialty Start Date End Date Elsewhere, Pcp PCP - General Family Medicine 12/25/21 documented as of this encounter
--- OUTSIDE RECORDS SUMMARY | 2022-08-01 07:43 | XMS_ITS | Encounter Summary ---
:1965 Author Organization [facility] Address [address] [place] [address] Care Team Providers Name Role Phone Elsewhere, Pcp Primary Care Provider Unavailable Encounter Details Date Type Department Care Team Description 01/08/2022 Clinical Communication Pharmacy Prior Auth ОЛЬГА Carrera M.D. [phone] Social History Tobacco Use Types Packs/Day Years [...] you attend quaker or Patient refused 2021 faith services? Do [...] Camelia CINTRON. Thank you, The OPPA Team FLEX DEVELOPER documented in this encounter Plan of Treatment Not on filedocumented as of this encounter Visit Diagnoses Not on filedocumented in this encounter Additional Health Concerns Assessment Noted Time PHQ-9 Depression Total Score: 16 02/11/2021 12:00 AM C DT documented as of this encounter Care Teams Compliance Technician Relationship Specialty Start Date End Date Elsewhere, Pcp PCP - General Family Medicine 12/25/21 documented as of this encounter
--- OUTSIDE RECORDS SUMMARY | 2022-08-01 07:43 | XMS_ITS | Encounter Summary ---
:1965 Author Organization [facility] Address [address] [place] [address] Care Team Providers Name Role Phone Elsewhere, Pcp Primary Care Provider Unavailable Reason for Referral Outpatient (Routine) - Authorized Specialty Diagnoses / Procedures Referred By Contact Refer red To Contact Diagnoses Renewals Specialist Antibiotic Treatment Tejal Medley MPAS, P.A.-C., M.S. [address] [place] [phone] Referral ID Status Reason Start Expiration Visits Visits Date Date Requested Authorized [id number] Authorized Patient 02/08/2022 02/08/2023 1 1 Preference Reason for Visit Reason Comments OPAT Care Coordination Encounter Details Date Type Department Care Team Description 02/08/2022 Clinical Communication Section of Desirae Domingo (Care Infectious Diseases M, R.N. Coordination) in [place], [address] [place] [address] [place] [phone] [place], [place] [phone] (Work) [phone] Social History Tobacco Use Types Packs/Day Years [...] you attend anglican or Patient refused 2021 shinto services? Do you belong to any clubs or No 05/17/2022 organizations such as anglican groups, unions, fraAniika or athletic groups, or school groups? How [...] 02/08/2022 12:06 PM CDT Maritza calls from [employer] [facility] stop date of 02/11 for IV antibiotics. Maritza requests order be faxed to [facility] where patient has labs and PICC site care done. I called the [facility], .Pull PIC order can be faxed to [phone]. documented in this encounter Plan of Treatment Not on filedocumented as of this encounter Visit Diagnoses Diagnosis Residential Antibiotic Treatment - Primary documented in this encounter Additional Health Concerns Assessment Noted Time PHQ-9 Depression Total Score: 16 02/11/2021 12:00 AM C DT documented as of this encounter Care Teams Medical Receptionist Assistant Relationship Specialty Start Date End Date Elsewhere, Pcp PCP - General Family Medicine 12/25/21 documented as of this encounter
--- OUTSIDE RECORDS SUMMARY | 2022-08-01 07:43 | XMS_ITS | Encounter Summary ---
:[address] [facility] Address [address] [place] [address] Care Team Providers Name Role Phone Elsewhere, Pcp Primary Care Provider Unavailable Reason for Visit Reason Comments OPAT Care Coordination Encounter Details Date Type Department Care Team Description 01/22/2022 Clinical Communication Section of Steven Dennis (Care Infectious Diseases E, R.N. Coordination) in [address] [place] [phone] [place], [place] [phone] (Work) [phone] Social History Tobacco Use Types Packs/Day Years [...] you attend holiness or Patient refused 2021 yarsanism services? Do [...] IR. ??Is she able to come to [place] for IR PICC placement? ??If not, we'll [...] I spoke to Carolynn, the nurse at [facility]. She spoke to their wound care nurse and she would liketo try some different dressings first before they move the PICC to the chest. They cannot place a PICC in the chest in [place], so if needed, the patient would have to come to [place]. The patientwill be there at 2 pm today. She will call back with the patient so we all can come up with a plan together. Addendum: We missed a call from Carolynn, infusion nurse at [facility]. Her message stated that PICCsite care was performed and the site looks better. The wound care team has a plan and is hoping thatblessinge can keep her current PICC. OGRAPHY TECHNICIAN Telephone Encounter - Tejal Rudolph R.N. - 01/22/2022 4:46 PM RADIOGRAPHY TECHNICIAN I have been unable to reach the patient, but I notified nurse Carolynn at [facility] of Dr. Boris Chaidez's recommendation, that they could try moving the line to the other arm and use a midline but avoid a chest PICC. I faxed the order for midline placement. Nurse Carolynn at [place] questioned whether the midline could be moved to the other (left) arm, because patient wears a sling on that arm. OGRAPHY TECHNICIAN Telephone Encounter - Steven Dennis R.N. - [...] She did get a special dressing from [facility] to use, but it doesn't seem to be helping. Dressing was changed at [facility] today and they applied some guaze to help with the drainage. 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
--- OUTSIDE RECORDS SUMMARY | 2022-08-01 07:43 | XMS_ITS | Encounter Summary ---
:[address] [facility] Address [address] [place] [address] Care Team Providers Name Role Phone Elsewhere, Pcp Primary Care Provider Unavailable Reason for Visit Outpatient (Routine) - Closed Specialty Diagnoses / Procedures Referred By Contact Refer red To Contact Orthopedic Surgery Diagnoses Pain Shoulder Left Alfredo Herrera, [facility] O.P.A.-C [address] [place] [phone] Referral ID Status Reason Start Date Expiration Date Visits Requ ested Visits Authorized [id number] Closed 12/30/2021 12/30/2022 1 1 Encounter Details Date Type Department Care Team Description 02/25/2022 Office Visit Department of Orthopedic Cyrus Polk , Pain Shoulder Left Surgery in [facility] [address] [place] [address] [address] [place] [phone] Social History Tobacco Use Types Packs/Day Years [...] you attend adventist or Patient refused 2021 denominational services? Do you belong to any clubs or No 05/17/2022 organizations such as adventist groups, [employer], [employer] or athletic groups, or school groups? How [...] may involve the use of a medical photographer made by a [employer] or one of my partners have collaborated to design, develop, or improve orthopedic implants, instruments, or products. Both the [facility] and the individual surgeons involved receive royalty payments from the use of those specific devices at other institutions, but no royalties or any other payments are paid for the use of those devices with any [facility] patient. The clinical rationale for the use of those devices as well as the availability and applicability of alternative devices was reviewed. He understands that the final decision for the use of a specific medical photographer often is made at the time of [...] documented as of this encounter Care Teams Facility Service Associate Relationship Specialty Start Date End Date Elsewhere, Pcp PCP - General Family Medicine 12/25/21 documented as of this encounter
--- OUTSIDE RECORDS SUMMARY | 2022-08-01 07:43 | XMS_ITS | Encounter Summary ---
:1965 Author Organization [facility] Address [address] [place] [address] Care Team Providers Name Role Phone Elsewhere, Pcp Primary Care Provider Unavailable Reason for Visit Reason Comments OPAT Lab request Encounter Details Date Type Department Care Team Description 01/26/2022 Clinical Communication Section of Ruth Eddy (Lab request) Infectious T, R.N. Diseases in [address] [place] [phone] [place] [address] [place], [place] (Work) [phone] Social History Tobacco Use Types Packs/Day Years [...] you attend zoroastrianism or Patient refused 2021 methodist services? Do [...] Eddy RBrittonN. - 01/26/2022 4:13 PM CST [facility], phone: [phone] was called and message left to fax us lab results. Our fax and phone number was given. TY CONSULTANT documented in this encounter Plan of Treatment Not on filedocumented as of this encounter Visit Diagnoses Not on filedocumented in this encounter Additional Health Concerns Assessment Noted Time PHQ-9 Depression Total Score: 16 02/11/2021 12:00 AM C DT documented as of this encounter Care Teams Baker Bread Relationship Specialty Start Date End Date Elsewhere, Pcp PCP - General Family Medicine 12/25/21 documented as of this encounter
--- OUTSIDE RECORDS SUMMARY | 2022-08-01 07:43 | XMS_ITS | Encounter Summary ---
:1965 Author Organization [facility] Address [address] [place] [address] Care Team Providers Name Role Phone Elsewhere, Pcp Primary Care Provider Unavailable Encounter Details Date Type Department Care Team Description 02/26/2022 Surgery RST SEBAS MORAN OR Cyrus Polk, ARTHROPLASTY REPLACEMENT [address] [facility] [place] [phone] [facility] [phone] [place] [address] Social History Tobacco Use Types Packs/Day Years [...] you attend rastafarian or Patient refused 2021 yazidi services? Do [...] or the highest technical, or vocational p Acerram degree you have received? Sex Assigned at [...] THC multivit-min/iron/folic/ Take 1 tablet by 0 [id number] (HAIR, SKIN AND mouth daily. NAILS ADVANCED [...] - 02/27/2022 8:05 AM CDT Orthopedic Service: [facility] Hospital Admission Day: 02/26/2022 SUBJECTIVE POD1. [...] am until 6 pm, please page the [facility] pager at [phone] For urgent matters from 6 pm until 6 am, please page Ortho House at [phone] Michael Chino M.D. - 02/26/2022 3:03 PM CDT Orthopedic Service: [facility] Hospital Admission Day: 02/26/2022 SUBJECTIVE Patient [...] am until 6 pm, please page the [employer] pager at [phone] For urgent matters from 6 pm until 6 am, please page Ortho House at [phone] Clemente Buck, Pharm.D., R.Ph. - 02/26/2022 9:17 [...] Take 150 mg by mouth every morning. abgovddcgp-xznuqntduihxr-yruc (ESGIC) 50-325-40 mg per tablet Past Week [...] 1 spray as needed. 5 mg THC multivit-min/iron/folic/jja614 (HAIR, SKIN AND NAILS ADVANCED ORAL) 02/25/2022 [...] (HCC) ??? Nicotine Dependence Unspecified ??? 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 Direct Infection Of [...] Right Lives With: Alone Receives Help From: cell attendant, Family, Friend(s) ADL Assistance: Required assistance ADL Assistance Comments: Gets help from BICYCLE REPAIRER for her bath/shower and for her meals IADL/Homemaking Assistance: Required assistance IADL/Homemaking Assistance Comments: Gets help for housecleaning Driving: Independent Driving Comments: takes her cane and medical alert with her. Occupational Role: On disability Occupational Role Comments: Previously worked at a [employer] and [employer] Prior Mobility/Functional Transfers Level of Bandera: Modified independent Previous Transfer/Mobility Assistance Comments: Patient [...] mask during therapy session: yes Outcome Measures [facility] Inpatient Short Form: -[facility] Basic Mobility (V.2) How much help [...] AM-PAC Basic Mobility (V.2) Raw Score: 24 -[facility] Basic Mobility (V.2) Standardized Score: 57.68 Interpretation: Clinicians answer the -[facility] Inpatient Short Form based on observed [...] Prescriptions were sent and filled at the [facility] pharmacy. Catalina Mccloud R.N. - 02/27/2022 [...] elsewhere status post placement antibiotic spacer. A university administrative assistant was necessary for one or more [...] be placed with approximately 70% contact with kluti kaah bone. The more superior aspect of the [...] of antibiotic spacer, implantation of reverse arthroplasty, [id number] Cyrus Polk M.D. CT CT Job ID: [id number] documented in this encounter Plan of Treatment [...] [facility] - [address] [place], [place] [address] [facility] [place] [address] [facility] [address] [facility] (ABNORMAL) Basic Metabolic Panel (02/26/2022 3:47 [...] 02/26/2022 DTL Black/ mL/min/BSA 6:27 PM CDT Armenian Comment: ----ADDITIONAL INFORMATION---- Estimated GFR calculated using [...] [facility] - [address] [place], [place] [address] [facility] [place] [address] [facility] [address] [facility] (ABNORMAL) CBC with Differential, Blood (02/26/2022 3:47 PM CDT) [facility] gist Method Time Signature Hemoglobin [...] [place] [facility] - [address] [place], [place] [address] [facility] [place] [address] [facility] [address] DX [...] Aerobe / Anaerobe+Susc (02/26/2022 1:00 PM CDT) [facility] gist Method Time Signature Bacteria Cult, No growth 03/12/2022 DTL Aerobe/Anaerob after 14 2:02 PM CDT e+Susc days of incubation. Specimen Anatomical Collection Method Collection Time Receive d Time (Source) Location / / Volume Laterality Shoulder, Left 02/26/2022 1:00 PM 022 1:41 CDT PM CDT Comment: Specimen Source Site: Tissue 1 Narrative [facility] - 03/12/2022 2:02 PM CDT Bacterial Culture: Placed in Bactec aero bic and Bactec anaerobic bottles Cyrus Polk M.D. LAB MICROBIOLOGY - GENERAL O RDERABLES Performing Organization Address City/[facility] Phon e Number [facility] - [address] [place], [place] [address] [facility] [place] [address] [facility] 200 [facility] Bacteria Cult, Aerobe / Anaerobe+Susc (02/26/2022 1:00 PM CDT) Patholo gist Method Time Signature Bacteria Cult, No growth 03/12/2022 DTL Aerobe/Anaerob after 14 2:02 PM CDT e+Susc days of incubation. Specimen Anatomical Collection Method Collection Time Receive d Time (Source) Location / / Volume Laterality Shoulder, Left 02/26/2022 1:00 PM 022 1:38 CDT PM CDT Comment: Specimen Source Site: Tissue 3 Narrative [facility] - 03/12/2022 2:02 PM CDT Bacterial Culture: Placed in Bactec aero bic and Bactec anaerobic bottles Cyrus Polk M.D. LAB MICROBIOLOGY - GENERAL O RDERASARAH Performing Organization Address City/[facility] Phon e Number [facility] - [address] [place], [place] [address] [facility] [place] [address] [facility] 200 [facility] Bacteria Cult, Aerobe / Anaerobe+Susc (02/26/2022 1:00 PM CDT) Patholo gist Method Time Signature Bacteria Cult, No growth 03/12/2022 DTL Aerobe/Anaerob after 14 2:02 PM CDT e+Susc days of incubation. Specimen Anatomical Collection Method Collection Time Receive d Time (Source) Location / / Volume Laterality Shoulder, Left 02/26/2022 1:00 PM 022 1:36 CDT PM CDT Comment: Specimen Source Site: Tissue 2 Narrative [facility] - 03/12/2022 2:02 PM CDT Bacterial Culture: Placed in Bactec aero bic and Bactec anaerobic bottles Cyrus Polk M.D. LAB MICROBIOLOGY - GENERAL O RDERABLES Performing Organization Address City/State/ZIP Code Phon e Number [facility] - [address] [place] [address] [facility] [place] [address] [facility] 200 [facility] Surgical Pathology, Frozen Lab (02/26/2022 1:00 [...] permanent sections. ??Grossed by Nan Ledezma M.S., AMELIA([facility]). Block Summary A Left shoulder 03/01/2022 [...] [facility] - [address] [place], [place] [address] [place] [address] [facility] [address] documented in [...] 02/26/2022 02/27/2022 acetaminophen tablet 1,000 mg (TYLENOL) 0463 (Given - Provider: Tanesha Butt)0280 (Given - Provider: Tanesha Butt) 043 (Given - Provider: Lauren Mckeon RBrittonN.)1104 (Given [...] Butt) 0825 (Given - Provider: Catalina Mccloud RBetsy) 40 mg, oral, 2 times daily, First [...] mg of calcium, oral, Every 2 hour ME N, indigestion, Starting on Tue02/26/22 at 1451, [...] Provider: Tanesha Butt) 0130 (Given - Provider: Densie Novak RBrittonN., ONC)0433 (Given - Provider: Lauren [...] documented as of this encounter Care Teams Billing Machine Operator Relationship Specialty Start Date End Date Elsewhere, Pcp PCP - General Family Medicine 12/25/21 documented as of this encounter
--- OUTSIDE RECORDS SUMMARY | 2022-08-01 07:43 | XMS_ITS | Encounter Summary ---
:1965 Author Organization [facility] Address [address] [place] [address] Care Team Providers Name Role Phone Elsewhere, Pcp Primary Care Provider Unavailable Reason for Visit Outpatient (Routine) - Closed Specialty Diagnoses / Procedures Referred By Contact Refer red To Contact Infectious Diseases Diagnoses Aftercare Total Shoulder Arthroplasty [facility] [address] [place] [phone] Referral ID Status Reason Start Date Expiration Date Visits Requ ested Visits Authorized [id number] Closed 01/01/2022 01/01/2023 1 1 Encounter Details Date Type Department Care Team Description 02/25/2022 Comprehensive Visit Section of Christiano Nixon M.D. [address] [place] [phone] Prison Antibiotic Treatment (Primary Dx); Infectious Diseases Russell Santos M.D. [address] [place] [phone] Infection Shoulder Prosthesis Subsequent ; in [place], Direct Infecti on Of Left Shoulder In Infectious And Parasitic Diseases Classified Elsewhere ([facility]); [place] Aftercare Total Shoulder Art hroplasty [address] [place] [phone] Social History Tobacco Use Types Packs/Day [...] you attend hoahaoism or Patient refused 2021 baptism services? Do [...] 56 y.o. Birthdate: 1965 Sex: female Address: [address] [place] [phone] Referring Provider: Jose Guadalupe Nixon M.D. REASON [...] on OSH AST. She presented to [facility] (unclear if on antibiotics) for further evaluation given persistent L shoulder pain 08/2021 prompting aspiration (09/25/21) which revealed elevated TNC ([address]1914) with 81% PMNs with cultures positive for [...] thorough debridement.??[facility]. Intraoperative cultures and synovial [...] is consistent with aspiration results from original [facility] evaluation which is likely it sales representative of the culprit organism causing [...] of Infectious Diseases OPAT monitoring program at [phone] after dismissal. Primary service to follow labs while patient is hospitalized. [facility] pharmacist to adjust dosing after dismissal 4. [...] 150 mg by mouth every morning. ??? runrtgfvxh-bnjlafmgthaup-bixe (ESGIC) 50-325-40 mg per tablet Take 1 [...] 11 mo ago Resulting Agency CULTURE RESULT??Abnormal?? [facility] CULTURE 1+ Staphylococcus coagulase negative [facility] GRAM STAIN ? 1+ PMNs [facility] GRAM STAIN ? No organisms seen [facility] GRAM STAIN ? 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 Hepatic Function Panel ??? Basic Metabolic Panel Spent 36 minutes in total time both ctku-es-nboq and non jmvl-tl-ukte to face documented in this encounter Plan [...] 02/25/2022 DTL Black/ mL/min/BSA 11:19 AM CDT Beninese Comment: ----ADDITIONAL INFORMATION---- Estimated GFR calculated using [...] City/State/ZIP Code Phon e Number [facility] - [address] [place] [address] [facility] [place] [place] [address] [facility] 200 [facility] Hepatic Function Panel (02/25/2022 10:09 AM CDT) [facility] gist Method Time Signature Bilirubin, Total, [...] City/State/ZIP Code Phon e Number [facility] - [address] [place], [place] [address] [facility] [place] [address] [facility] [address] documented in this encounter Visit Diagnoses Diagnosis Bark Grinder Antibiotic Treatment - Primary Infection Shoulder Prosthesis Subsequent Direct Infection Of Left Shoulder In Inf ectious And Parasitic Diseases Classified Elsewhere (HCC) Aftercare Total Shoulder Arthroplasty documented in this encounter Additional Health Concerns Assessment Noted Time PHQ-9 Depression Total Score: 16 02/11/2021 12:00 AM C DT documented as of this encounter Care Teams Gristmill Operator Relationship Specialty Start Date End Date Elsewhere, Pcp PCP - General Family Medicine 12/25/21 documented as of this encounter
--- OUTSIDE RECORDS SUMMARY | 2022-08-01 07:44 | XMS_ITS | Encounter Summary ---
:1965 Author Organization [facility] Address [address] [place] [address] Care Team Providers Name Role Phone Elsewhere, Pcp Primary Care Provider Unavailable Reason for Visit Reason Comments OPAT Intervention Encounter Details Date Type Department Care Team Description 01/07/2022 Clinical Communication Section of MATTHEW Tolbert (Intervention) Infectious Diseases [facility] [phone] 200 [facility] (Work) [place] [address] Social History Tobacco Use Types Packs/Day Years [...] attend jehovah's witness or Patient refused 2021 jain services? Do [...] Dandy Reyes, Pharm.D. - 01/12/2022 9:38 AM FACILITY MAINTENANCE WORKER Pertinent labs and antimicrobial regimen as indicated [...] >0.3 mg/dL and absolute value >1.0 mg/dL. LITY MAINTENANCE WORKER Telephone Encounter - Steven Dennis R.N. - 01/12/2022 9:13 AM CST OPAT NOTE Infusion Provider: Dennis [facility], phone: [phone], fax: [phone] Labs and site care at [facility], phone: [phone] Antimicrobial(s) currently prescribed: See Med List Hyperlink in note Firm stop date: 02/11/22 Lab results from 01/07/22 are viewable in the MCR record--listed as External Labs (received via fax, which has been uploaded to Document Viewer/Media) Interpretation and action: Will send to the OPAT pharmacist to review the creatinine, which has decreased >30%. Alk phos wasnot drawn. LITY MAINTENANCE WORKER documented in this encounter Plan of Treatment Not on filedocumented as of this encounter Procedures Procedure Name Priority Date/Time Associated Comments Diagnosis CBC WITH DIFFERENTIAL, B Routine 01/07/2022 2:30 Results for this PM FACILITY MAINTENANCE WORKER procedure are i n the results section. ALANINE AMINOTRANSFERASE Routine 01/07/2022 2:30 Results for this (ALT), S/P PM FACILITY MAINTENANCE WORKER procedure are i n the results section. CREATININE WITH EGFR, Routine 01/07/2022 2:30 Res ults for this S/P PM FACILITY MAINTENANCE WORKER procedure are i n the results section. documented in this encounter Results ALT (Alanine Aminotransferase) (01/07/2022 2:30 PM FACILITY MAINTENANCE WORKER) P athologist Signature EXT ALT 10 4 - 35 [facility]) Specimen (Source) Anatomical Location Collection Method / Collectio n Time Received Time / Laterality Volume Blood (Blood, Venous) Laly Ward APRN, R.N. LAB BLOOD ADD-ON Performing Organization Address [facility] e [facility], [address] [place] [address] [facility]) Creatinine with Estimated GFR (01/07/2022 2:30 PM FACILITY MAINTENANCE WORKER) Analysis Performed At Patho logist Time Signature EXT Creatinine 0.5 0.5 - 1.5 [place] mg/dL [facility]) Specimen (Source) Anatomical Location Collection Method / Collectio n Time Received Time / Laterality Volume Blood (Blood, Venous) Narrative This result has an attachment that is no t available. aLly Ward APRN, R.N. LAB BLOOD ADD-ON Performing Organization Address [facility] Phon e Number [facility], [address] [place] [address] [facility]) (ABNORMAL) CBC with Differential, Blood (01/07/2022 2:30 PM FACILITY MAINTENANCE WORKER) [facility] gist Method Time Signature EXT Platelet 349 150 - 450 [facility], [facility]) EXT Eosinophils 0.28 0 - 0.5 [facility]) EXT Hemoglobin 8.7 (A) 12 - 15.[address] [facility], [facility]) EXT Absolute 3.19 1.7 - 7 [place] Neutrophils [facility], [facility]) EXT White Blood 5.4 5.0 - [place] Cell (WBC) 10.0 [facility]) Specimen (Source) Anatomical Location Collection Method / Collectio n Time Received Time / Laterality Volume Blood (Blood, Venous) Narrative This result has an attachment that is no t available. Laly Ward APRN, R.N. LAB BLOOD ADD-ON Performing Organization Address City/State/ZIP Code Phon e Number [facility], [address] [place], [place] [id number] [facility]) documented in this encounter Visit Diagnoses Not on filedocumented in this encounter Additional Health Concerns Assessment Noted Time PHQ-9 Depression Total Score: 16 02/11/2021 12:00 AM C DT documented as of this encounter Care Teams Batch Tank Controller Relationship Specialty Start Date End Date Elsewhere, Pcp PCP - General Family Medicine 12/25/21 documented as of this encounter
--- OUTSIDE RECORDS SUMMARY | 2022-08-01 07:44 | XMS_ITS | Encounter Summary ---
:1965 Author Organization [facility] Address [address] [place] [address] Care Team Providers Name Role Phone Elsewhere, Pcp Primary Care Provider Unavailable Encounter Details Date Type Department Care Team Description 12/30/2021 Anesthesia Event RST SEBAS MORAN OR Clifford Young M.D. [address] [place] [phone] [address] [facility] Collin Fernández M.D. [address] [place] [phone] [place] [phone] Anesthesia Record Procedure Summary [...] h andoff to the receiving staff during [facility] ch we 1. Identified the patient [...] Ayakalashell Andreyscout howard T, (created via procedure TNT LINE SUPERVISOR, PRICE ECONOMIST TNT LINE SUPERVISOR, CRN A documentation); Mask Ventilation: Easy mask; [...] you attend shinto or Patient refused 2021 yazidi services? Do [...] or the highest technical, or vocational p [facility] degree you have received? Sex Assigned at Date Recorded Female 03/01/2019 10:12 AM CDT documented as of this encounter OR Notes Anesthesia Postprocedure Evaluation - Clifford Young M.D. - 12/30/2021 3:55 PM CST Patient: Angie Mosquera Procedure Summary Date: 12/30/21 Room / Location: [address] / [facility] in [place], [place] Anesthesia Start: 1250 Anesthesia Stop: 1550 [...] Post Op nausea/vomiting: none Hydration status: euvolemic ILL PRODUCTION WORKER Anesthesia Procedure Notes - Emre Rodriguez APRN, CRNA - 12/30/2021 2:29 PM SAWMILL PRODUCTION WORKER Associated Order(s): Airway Airway Date/Time: 12/30/2021 1:02 [...] successful Airway event: no complications ATTESTATION STATEMENT ILL PRODUCTION WORKER Anesthesia Preprocedure Evaluation - Clifford Young M.D. - 12/30/2021 1:23 PM CST Preprocedure Anesthesia & H&P Assessment Procedure Summary Anesthesia Start Date/Time: 12/30/21 1250 Procedure: ARTHROPLASTY RESECTION SHOULDER. 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 Location: [address] / [facility] in [place], [place] Providers: Cyrus Polk M.D. Pertinent components [...] with patient /legal guardian or through an curtain fitter. Risks/Benefits/Alternatives of Blood transfusion discussed with patient / legal guardian, including an opportunity to ask questions and/or decline some or all transfusion therapies. The patient / legalguardian consented to the use of all blood products, as deemed medically necessary Approval to Proceed: approved for anesthesia ILL PRODUCTION WORKER Anesthesia Procedure Notes - Clifford Khanna M.D. - 12/30/2021 12:56 PM SAWMILL PRODUCTION WORKER Associated Order(s): Regional Block Regional Block Date/Time: [...] successful procedure Other complications: none ATTESTATION STATEMENT ILL PRODUCTION WORKER documented in this encounter Plan of Treatment Not on filedocumented as of this encounter Procedures Procedure Name Priority Date/Time Associated Comments Diagnosis LDA ANE ENDOTRACHEAL Routine 12/30/2021 1:02 PM R esults for this AIRWAY SAWMILL PRODUCTION WORKER procedure are i n the results section. MC ANE NERVE BLOCK Routine 12/30/2021 12:56 Resul ts for this WITH ULTRASOUND PM SAWMILL PRODUCTION WORKER procedure ar e in the results section. LDA ANE UPPER Routine 12/30/2021 12:56 Results fo r this EXTREMITY PNC PM SAWMILL PRODUCTION WORKER procedure are in the results section. W[place] US GUIDE PLC NDL Routine 12/30/2021 12:56 Resu lts for this PM SAWMILL PRODUCTION WORKER procedure are i n the results section. WY INJ ANES BRACHIAL Routine 12/30/2021 12:56 Res ults for this PLEXUS CONT PM SAWMILL PRODUCTION WORKER procedure are i n the results section. documented in this encounter Results LDA ANE ENDOTRACHEAL AIRWAY (12/30/2021 1:02 PM SAWMILL PRODUCTION WORKER) Narrative Emre Rodriguez APRN, CRNA - 12/30/2021 1:02 PM SAWMILL PRODUCTION WORKER Emre Rodriguez APRN, CRNA ? 12/30/2021 ??2:30 [...] ATTESTATION STATEMENT Clifford Young M.D. ANESTHESIA ORDERABLES WY INJ ANES BRACHIAL PLEXUS CONT, W[place] US GUIDE PLC NDL, LDA ANE UPPER EXTREMITY PNC, MC ANE NERVE BLOCK WITH ULTRASOUND (12/30/2021 12:56 PM SAWMILL PRODUCTION WORKER) Narrative Clifford Khanna M.D. - 12/30/2021 12:56 P M SAWMILL PRODUCTION WORKER Clifford Khanna M.D. ? 12/30/2021 12:57 PM Regional Block Date/Time: 12/30/2021 12:56 PM Performed by: lCifford Khanna M.D. Authorized by: Clifford Khanna M.D. [...] 5 % injection Given 12/30/2021 1:52 PM SAWMILL PRODUCTION WORKER 250 mL intravenous, As needed, Starting on Tue12/30/21 at 1352, Anesthesia Intra-op bupivacaine PF 0.5 % (5 mg/mL) injection Given 12/30/2021 12:45 PM SAWMILL PRODUCTION WORKER 10 mL (MARCAINE) intrathecal, As needed, Starting on Tue12/30/21 at 1245, Anesthesia Intra-op ceFAZolin injection 2,000 mg (ANCEF) Given 12/30/2021 2:19 PM SAWMILL PRODUCTION WORKER 2 g 2,000 mg (rounded from 1,747.5 [...] dexAMETHasone injection (DECADRON) Given 12/30/2021 1:09 PM SAWMILL PRODUCTION WORKER 8 mg intravenous, As needed, Starting on Tue12/30/21 at 1309, Anesthesia Intra-op diphenhydrAMINE injection (BENADRYL) Given 12/30/2021 1:32 PM SAWMILL PRODUCTION WORKER 12.5 mg intravenous, As needed, Starting on Tue12/30/21 at 1332, Anesthesia Intra-op ePHEDrine (PF) injection Given 12/30/2021 1:58 PM SAWMILL PRODUCTION WORKER 10 mg intravenous, As needed, Starting on Tue12/30/21 at 1346, Anesthesia Intra-op Given 12/30/2021 1:46 PM SAWMILL PRODUCTION WORKER 5 mg Given 12/30/2021 1:24 PM SAWMILL PRODUCTION WORKER 10 mg fentaNYL injection (SUBLIMAZE) Given 12/30/2021 3:12 PM SAWMILL PRODUCTION WORKER 50 mcg intravenous, As needed, Starting on Tue12/30/21 at 1512, Anesthesia Intra-op ketamine injection (KETALAR) Given 12/30/2021 2:43 PM SAWMILL PRODUCTION WORKER 20 mg intravenous, As needed, Starting on Tue12/30/21 at 1443, Anesthesia Intra-op lactated ringers New Bag 12/30/2021 12:53 PM SAWMILL PRODUCTION WORKER intravenous, Continuous Infusion: Per Instructions PRN, Starting on Tue12/30/21 at 1253, Anesthesia Intra-op ondansetron (PF) injection (ZOFRAN) Given 12/30/2021 3:00 PM SAWMILL PRODUCTION WORKER 4 mg intravenous, As needed, Starting on Tue12/30/21 at 1500, Anesthesia Intra-op phenylephrine 80 mcg/mL in Rate/Dose 12/30/2021 3:00 0.4 mcg/kg/min 20.97 NaCl 0.9% 250 mL infusion Change PM SAWMILL PRODUCTION WORKER mL/hr intravenous, Continuous Infusion: Per Instructions PRN, Starting on Tue12/30/21 at 1404, Anesthesia Intra-op Rate/Dose Change 12/30/2021 2:36 PM SAWMILL PRODUCTION WORKER 0.3 mcg/kg/min 15.728 mL/hr Rate/Dose Change 12/30/2021 2:25 PM SAWMILL PRODUCTION WORKER 0.25 mcg/kg/min 13.106 mL/h r phenylephrine injection Given 12/30/2021 2:31 PM SAWMILL PRODUCTION WORKER 100 mcg intravenous, As needed, Starting on Tue12/30/21 at 1346, Anesthesia Intra-op Given 12/30/2021 2:12 PM SAWMILL PRODUCTION WORKER 100 mcg Given 12/30/2021 2:10 PM SAWMILL PRODUCTION WORKER 100 mcg propofol 10 mg/mL infusion New Bag 12/30/2021 1:15 50 mcg/kg/min 2 0.97 mL/hr (DIPRIVAN) PM SAWMILL PRODUCTION WORKER intravenous, Continuous Infusion: Per Instructions PRN, Starting on Tue12/30/21 at 1315, Anesthesia Intra-op New Bag 12/30/2021 1:09 PM SAWMILL PRODUCTION WORKER 50 mcg/kg/min 20.97 mL/hr propofoL injection (DIPRIVAN) Given 12/30/2021 12:59 PM SAWMILL PRODUCTION WORKER 140 mg intravenous, As needed, Starting on Tue12/30/21 at 1259, Anesthesia Intra-op rocuronium injection (ZEMURON) Given 12/30/2021 1:12 PM SAWMILL PRODUCTION WORKER 10 mg intravenous, As needed, Starting on Tue12/30/21 at 1301, Anesthesia Intra-op Given 12/30/2021 1:01 PM SAWMILL PRODUCTION WORKER 50 mg sugammadex injection (BRIDION) Given 12/30/2021 3:14 PM SAWMILL PRODUCTION WORKER 139.8 mg intravenous, As needed, Starting on [...] as of this encounter Care Teams Agricultural Economics Professor Relationship Specialty Start Date End Date Elsewhere, Pcp PCP - General Family Medicine 12/25/21 documented as of this encounter
--- OUTSIDE RECORDS SUMMARY | 2022-08-01 07:44 | XMS_ITS | Encounter Summary ---
:1965 Author Organization [facility] Address [address] [place] [address] Care Team Providers Name Role Phone Elsewhere, Pcp Primary Care Provider Unavailable Encounter Details Date Type Department Care Team Description 01/05/2022 Clinical Communication Section of Infectious Ed [facility] in [place], , DUMP OPERATOR, R.N. [place] 200 [facility] 200 [place] [phone] Social History Tobacco Use Types Packs/Day Years [...] Ward APRN, C.N.P. - 01/05/2022 2:17 PM DISTRIBUTION CENTER MANAGER Left shoulder synovial fluid culture from 12/30 has been reported for growth of oxacillin sensitive Staphylococcus epidermidis. No change recommended to the patient's current regimen of ceftriaxone. RIBUTION CENTER MANAGER Telephone Encounter - Laly Ward APRN, C.N.P. - 01/05/2022 2:17 PM DISTRIBUTION CENTER MANAGER ----- Message from Su Greene, Pharm.D., R.Ph. sent at 01/05/2022 9:51 AM DISTRIBUTION CENTER MANAGER ----- Patient with shoulder infection (with previous [...] changes please message RST [facility]D [facility] PHARMACIST pool. If urgent, page [phone] M-F 9am-5 pm RIBUTION CENTER MANAGER documented in this encounter Plan of Treatment Not on filedocumented as of this encounter Visit Diagnoses Not on filedocumented in this encounter Additional Health Concerns Assessment Noted Time PHQ-9 Depression Total Score: 16 02/11/2021 12:00 AM C DT documented as of this encounter Care Teams Farmworker Dairy Relationship Specialty Start Date End Date Elsewhere, Pcp PCP - General Family Medicine 12/25/21 documented as of this encounter
--- OUTSIDE RECORDS SUMMARY | 2022-08-01 07:44 | XMS_ITS | Encounter Summary ---
:1965 Author Organization [facility] Address [address] [place] [address] Care Team Providers Name Role Phone Elsewhere, Pcp Primary Care Provider Unavailable Reason for Referral Outpatient (Routine) - Closed Specialty Diagnoses / Procedures Referred By Contact Refer red To Contact Orthopedic Surgery Diagnoses Pain Shoulder Left Alfredo Herrera, [facility] Anh [address] [place] [phone] Referral ID Status Reason Start Date Expiration Date Visits Requ ested Visits Authorized [id number] Closed 12/30/2021 12/30/2022 1 1 ING PRODUCTION MANAGER Reason for Visit Reason Comments Pre-visit Testing Orders Encounter Details Date Type Department Care Team Description 12/29/2021 Clinical Communication Department of Jam Pre- visit Testing Orthopedic Surgery Cyrus Souza M.D. Orders in [address] [place] [phone] [place], [place] [phone] (Work) [phone] Social History Tobacco Use Types Packs/Day Years [...] you attend caodaism or Patient refused 2021 evangelical services? Do you belong to any clubs or No 05/17/2022 organizations such as caodaism groups, unions, [employer] or athletic groups, or school groups? [...] 12/29/2021 1:06 PM CST Please sign order ING PRODUCTION MANAGER documented in this encounter Plan of Treatment Scheduled Referrals Name Type Priority Associated Order Schedule Diagnoses Orthopedic Surgery Outpatient Referral Routine Pain Shoulder L eft Expected: Pre Op (clinic) 02/24/2022, Expires: 03/28/2023 documented as of this encounter Results SARS CoV-2 RNA, PCR, Varies Asymptomatic (02/25/2022 11:09 AM CDT) [facility] Method Time Signature SARS CoV-2 Swab, [...] Drug Administration an d is used per laundry helper's instructions. Performance characteristics were verified by [facility] in a manner consistent with CLIA requirements. Visit the CDC website: https://www.cdc.g ov/coronavirus/ for the most recent guidelines on Coron avirus testing. Fact Sheet for Healthcare Providers: https://www.fda.gov/media/645587/downloa d Fact Sheet for Patients: https://www.fda.gov/media/658361/downloa d Specimen Anatomical Collection Method Collection Time Receive d Time (Source) Location / / Volume Laterality Varies 02/25/2022 11:09 02/25/2022 (Nasopharynx) AM CDT 11:40 AM CDT Alfredo Kamara LAB MICROBIOLOGY - GENERAL O RDERABLES Performing Organization Address City/State/ZIP Code Phon e Number [facility] - [address] [place], [place] [address] [place] [address] Laboratories-[facility] [address] documented in this encounter Visit Diagnoses Diagnosis Pain Shoulder Left - Primary documented in this encounter Additional Health Concerns Infection Onset Date Last Indicated Resolved Time COVID19 Pending 12/29/2021 12/29/2021 12/29/2021 4:20 PM TOURING PRODUCTION MANAGER Assessment Noted Time PHQ-9 Depression Total Score: 16 02/11/2021 12:00 AM C DT documented as of this encounter Care Teams Golf Course Superintendent Relationship Specialty Start Date End Date Elsewhere, Pcp PCP - General Family Medicine 12/25/21 documented as of this encounter
--- OUTSIDE RECORDS SUMMARY | 2022-08-01 07:44 | XMS_ITS | Encounter Summary ---
:1965 Author Organization [facility] Address [address] [place] [address] Care Team Providers Name Role Phone Elsewhere, Pcp Primary Care Provider Unavailable Reason for Referral Outpatient (Routine) - Closed Specialty Diagnoses / Procedures Referred By Contact Refer red To Contact Infectious Diseases Diagnoses Aftercare Total Shoulder Arthroplasty Jose Guadalupe Nixon [place] M.D. 200 [place] [address] Referral ID Status Reason Start Date Expiration Date Visits Requ ested Visits Authorized [id number] Closed 01/01/2022 01/01/2023 1 1 R BAG MAKER Reason for Visit Reason Comments OPAT Post [facility] Follow-up Encounter Details Date Type Department Care Team Description 01/01/2022 Clinical Communication RST HIM MATTHEW Nixon; [facility] [address] [place] [address] Jose Guadalupe Garcia M.D. Follow-up [place], [place] [address] [place] [phone] [place] [phone] Social History Tobacco Use Types Packs/Day Years [...] you attend catholic or Patient refused 2021 religion services? Do you belong to any clubs or No 05/17/2022 organizations such as catholic groups, unions, [employer] or athletic groups, or school groups? How [...] Priority Associated Diagnoses Order S [facility] Infectious Disease Outpatient Routine Aftercare [...] M.D. LAB BLOOD ADD-ON Performing Organization Address City/State/[facility] Phon e Number [facility] - [address] [place] [phone] [address] CRP (C-Reactive Protein) (02/25/2022 10:09 AM CDT) P athologist Signature C-Reactive <3.0 <=8.0 mg/L 02/25/2022 DTL Protein (CRP), 11:34 AM CDT S Specimen Anatomical Collection Method Collection Time Receive d Time (Source) Location / / Volume Laterality Blood (Blood, 02/25/2022 10:09 02/25/2022 Venous) AM CDT 11:00 AM CDT Jose Guadalupe Nixon M.D. LAB BLOOD ADD-ON Performing Organization Address [facility] Phon e Number [facility] - [address] [place] [address] (ABNORMAL) CBC with Differential, Blood (02/25/2022 [...] Organization Address City/State/ZIP Code Phon e Number [facility] - [address] [place], [place] [address] [facility] [place] [address] Laboratories-[facility] [address] documented in this encounter Visit Diagnoses Diagnosis Aftercare Total Shoulder Arthroplasty - Primary documented in this encounter Additional Health Concerns Assessment Noted Time PHQ-9 Depression Total Score: 16 02/11/2021 12:00 AM C DT documented as of this encounter Care Teams Retail Sales Representative Relationship Specialty Start Date End Date Elsewhere, Pcp PCP - General Family Medicine 12/25/21 documented as of this encounter
--- OUTSIDE RECORDS SUMMARY | 2022-08-01 07:44 | XMS_ITS | Encounter Summary ---
:1965 Author Organization [facility] Address [address] [place] [address] Care Team Providers Name Role Phone Elsewhere, Pcp Primary Care Provider Unavailable Encounter Details Date Type Department Care Team Description 01/01/2022 Episode Changes Section of Infectious [facility] in [place], (Work ) [place] [address] [place] [phone] Social History Tobacco Use Types Packs/Day [...] attend latter day or Patient refused 2021 jehovah's witness services? [...] documented as of this encounter Care Teams Sewer Pipe Layer Relationship Specialty Start Date End Date Elsewhere, Pcp PCP - General Family Medicine 12/25/21 documented as of this encounter
--- OUTSIDE RECORDS SUMMARY | 2022-08-01 07:44 | XMS_ITS | Encounter Summary ---
:[address] [facility] Address [address] [place] [address] Care Team Providers Name Role Phone Elsewhere, Pcp Primary Care Provider Unavailable Encounter Details Date Type Department Care Team Description 12/30/2021 Surgery RST SEBAS MORAN OR Cyrus Polk, ARTHROPLASTY RESECTION [address] [facility] [place] [address] 0001 [address] [facility] [phone] [place] [phone] Social History Tobacco Use Types Packs/Day Years [...] you attend bahai or Patient refused 2021 yazdanism services? Do [...] Comments Blood Pressure 119/74 12/30/2021 12:47 PM WAGE ANALYST Pulse 79 12/30/2021 12:47 PM WAGE ANALYST Temperature 36.8 ??C (98.2 ??F) 12/30/2021 11:22 AM WAGE ANALYST Respiratory Rate 20 12/30/2021 12:47 PM WAGE ANALYST Oxygen Saturation 99% 12/30/2021 12:47 PM WAGE ANALYST Inhaled Oxygen Concentration - - Weight 69.9 kg (154 lb 1.6 12/30/2021 11:22 AM oz) WAGE ANALYST Height 150.5 cm (4' 11.25) 12/30/2021 11:22 AM no shoe s/boots WAGE ANALYST Body Mass Index 30.86 12/30/2021 11:22 AM WAGE ANALYST documented in this encounter Discharge Summaries Dario Carrera M.D. - 01/01/2022 8:50 AM CST DISCHARGE SUMMARY BRIEF OVERVIEW Hospital: [facility] Discharge Provider: Cyrus Polk M.D. [...] ROEI OR DISCHARGE DISPOSITION [place] [facility] [place] ACTIVE ISSUES REQUIRING [...] were provided to the patient and caregiver(s). ANALYST documented in this encounter Discharge Instructions AttachmentsThe following attachments cannot be sent through Care Everywhere. Continuous Nerve-Block Infusion System: Often called a ???pain pump?? (Zimbabwean) documented in this encounter Medications at Time [...] THC multivit-min/iron/folic/ Take 1 tablet by 0 [id number] (HAIR, SKIN AND mouth daily. NAILS ADVANCED [...] signs of local anesthetic systemic toxicity, occur. ANALYST Fatemeh Pena R.N. - 01/01/2022 5:28 PM [...] when she got up for the day. ANALYST Ruht Gonzalez PAna, D.P.T. - 01/01/2022 4:29 PM [...] mask during therapy session: no Outcome Measures [facility] Inpatient Short Form: -[facility] Basic Mobility (V.2) How much help [...] 3-5 steps with a railing?: A Little AM-[facility] Basic Mobility (V.2) Raw Score: 23 -[facility] Basic Mobility (V.2) Standardized Score: 50.88 Interpretation: Clinicians answer the -[facility] Inpatient Short Form based on observed [...] quad cane since it is not available [facility] by prescription. Barriers to Discharge Home: Other [...] (min): 23 min Ruth Gonzalez P.T., D.P.T. ANALYST Elvira Duncan R.N. - 01/01/2022 3:21 PM [...] educational pamphlet Continuous Nerve-Block Infusion System ( [id number]).?? Discussed at home removal of nervecatheter, signs of toxicity, and provided the 20/06 number to call with questions.?? All questions answered. On-Q infusion will end Wednesday 01/03 at 2230. Informed patient she may wait until Tuesday morning to remove if she is sleeping. Note OnQ will not be empty as running at 6ml/hr with fill of 550cc. She is aware of this. ANALYST Thao You L.I.C.S.W., M.S.W. - 01/01/2022 11:23 AM CST SUBJECTIVE Referral Data The patient was seen for ongoing discharge needs. A list of infusion options (that patient/family geographically resides or requests) has been provided to and reviewed with patient/family. Disclaimers: Financial disclosure provided informing patient of our ownership and financial relationship of the [facility]/home health & hospice agencies. Reviewed [...] Selected Services Address Phone Fax Patient Preferred [facility] Infusion and IV Therapy [address], [place] [address] [phone] -- Contact: Intake NURSING: - Adjust the [...] draws will be managed by Outpatient Facility: [facility] Address: [address] [place] [address] Contact: Princess Jimenez will provide IV access [...] continue to follow. Joe Ervin, M.S.WBritton 01/01/2022 ANALYST Gucci Salvador M.D. - 01/01/2022 10:45 AM CST DEMOGRAPHIC INFORMATION [employer] Number:[phone] Patient Name: Angie Ashley Mosquera Service: [...] questions answered to patient's satisfaction. Please page [phone] for questions. 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 [id number] Pamela Leonard PharmAlejandrina, R.Ph. - 01/01/2022 10:14 [...] on post-operative opioids Pamela Crawford PharmAlejandrina, R.Ph. [phone] Jose Guadalupe Washington M.D. - 01/01/2022 8:31 AM CST Infectious Diseases Orthopedic Surgery [facility] [place] Consulting Service Progress Note [...] Date/Time Bacteria / Mandi Culture, Blood #2 [[id number]] Collected: 12/31/21 1604 Lab Status: In process Specimen: Blood, Peripheral Draw Updated: 12/31/21 1651 Narrative: Received Bactec aerobic and Bactec anaerobic bottles Specimen Information: Specimen ID: [id number] Specimen Source: Blood, Peripheral Draw Specimen Comment: Specimen Source Site: Blood Specimen Collection Start Date: 12/31/2021 4:05 PM Specimen Received Date: 12/31/2021 4:51 PM Specimen ID: [id number] Specimen Source: Blood, Peripheral Draw Specimen Comment: Specimen Source Site: Blood Specimen Collection Start Date: 12/31/2021 4:05 PM Specimen Received Date: 12/31/2021 4:51 PM Specimen ID: [id number] Specimen Source: Blood, Peripheral Draw Specimen Comment: Specimen Source Site: Blood Specimen Collection Start Date: 12/31/2021 4:04 PM Specimen Received Date: 12/31/2021 4:51 PM Bacteria / Mandi Culture, Blood #1 [[id number]] Collected: 12/31/21 1552 Lab Status: In process Specimen: Blood, Peripheral Draw Updated: 12/31/21 1651 Narrative: Received Bactec aerobic and Bactec anaerobic bottles Specimen Information: Specimen ID: [id number] Specimen Source: Blood, Peripheral Draw Specimen Comment: Specimen Source Site: Blood Specimen Collection Start Date: 12/31/2021 3:52 PM Specimen Received Date: 12/31/2021 4:50 PM Specimen ID: [id number] Specimen Source: Blood, Peripheral Draw Specimen Comment: Specimen Source Site: Blood Specimen Collection Start Date: 12/31/2021 3:53 PM Specimen Received Date: 12/31/2021 4:50 PM Specimen ID: [id number] Specimen Source: Blood, Peripheral Draw Specimen Comment: Specimen Source Site: Blood Specimen Collection Start Date: 12/31/2021 3:53 PM Specimen Received Date: 12/31/2021 4:50 PM Bacteria Cult, Aerobe / Anaerobe+Susc [[id number]] Collected: 12/30/21 1411 Lab Status: Preliminary result Specimen: Shoulder, Left Updated: 12/31/21 1601 Bacteria Cult, Aerobe/Anaerobe+Susc No growth to date. Narrative: Bacterial Culture: Placed in Bactec aerobic and Bactec anaerobic bottles Bacteria Cult, Aerobe / Anaerobe+Susc [[id number]] Collected: 12/30/21 1405 Lab Status: Preliminary result Specimen: Synovial Fluid, Left Shoulder Updated: 12/31/21 1601 Bacteria Cult, Aerobe/Anaerobe+Susc No growth to date. Narrative: Bacterial Culture: Placed in Bactec aerobic and Bactec anaerobic bottles Bacteria Cult, Aerobe / Anaerobe+Susc [[id number]] Collected: 12/30/21 1404 Lab Status: Preliminary result Specimen: Shoulder, Left Updated: 12/31/21 1601 Bacteria Cult, Aerobe/Anaerobe+Susc No growth to date. Narrative: Bacterial Culture: Placed in Bactec aerobic and Bactec anaerobic bottles Bacteria Cult, Aerobe / Anaerobe+Susc [[id number]] Collected: 12/30/21 1403 Lab Status: Preliminary result Specimen: Shoulder, Left Updated: 12/31/21 1601 Bacteria Cult, Aerobe/Anaerobe+Susc No growth to date. Narrative: Bacterial Culture: Placed in Bactec aerobic and Bactec anaerobic bottles Bacteria Cult, Aerobe / Anaerobe+Susc [[id number]] Collected: 12/30/21 1403 Lab Status: Preliminary result Specimen: Shoulder, Left Updated: 12/31/21 1601 Bacteria Cult, Aerobe/Anaerobe+Susc No growth to date. Narrative: Bacterial Culture: Placed in Bactec aerobic and Bactec anaerobic bottles SARS Coronavirus 2, Molecular Detection, PCR, Varies Asymptomatic [[id number]] Collected: 12/29/21 1111 Lab Status: Final result [...] ----ADDITIONAL INFORMATION---- This RT-PCR test using the NuLife Recovery SARS-CoV-2 Assay ( Kaola100) performed on the NuLife Recovery Two Module System has received Emergency Use Authorization (EUA) by the U.S. Food and Drug Administration, and is modified from the garde manager's instructions with a bridging study. Performance characteristics were verified by [facility] in a manner consistent with CLIA requirements. Visit the CDC website: https://www.cdc.gov/coronavirus/ for the most recent guidelines on Coronavirus testing. Fact Sheet for Healthcare Providers: https://www.fda.gov/media/558556/download Fact Sheet for Patients: https://www.fda.gov/media/708473/download ASSESSMENT / PLAN 56-year-old female with a [...] is consistent with aspiration results from original [facility] evaluation which is likely business office representative of the culprit organism causing her [...] of Infectious Diseases OPAT monitoring program at [phone] after dismissal. Primary service to follow labs while patient is hospitalized. [facility] pharmacist to adjust dosing after dismissal 4. [...] off at this time. Please page Ortho [facility]-ID service pager at [phone] with any questions. ?? Jose Guadalupe Nixon [...] Overall Comments Patient to dismiss with OnQ. ANALYST Dario Carrera M.D. - 01/01/2022 7:00 AM [...] - Date/Time Bacteria Cult, Aerobe / Anaerobe+Susc [[id number]] Collected: 12/30/21 1411 Lab Status: In process Specimen: Shoulder, Left Updated: 12/30/21 1540 Narrative: Bacterial Culture: Placed in Bactec aerobic and Bactec anaerobic bottles Bacteria Cult, Aerobe / Anaerobe+Susc [[id number]] Collected: 12/30/21 1405 Lab Status: In process Specimen: Synovial Fluid, Left Shoulder Updated: 12/30/21 1519 Narrative: Bacterial Culture: Placed in Bactec aerobic and Bactec anaerobic bottles Bacteria Cult, Aerobe / Anaerobe+Susc [[id number]] Collected: 12/30/21 1404 Lab Status: In process Specimen: Shoulder, Left Updated: 12/30/21 1536 Narrative: Bacterial Culture: Placed in Bactec aerobic and Bactec anaerobic bottles Bacteria Cult, Aerobe / Anaerobe+Susc [[id number]] Collected: 12/30/21 1403 Lab Status: In process Specimen: Shoulder, Left Updated: 12/30/21 1533 Narrative: Bacterial Culture: Placed in Bactec aerobic and Bactec anaerobic bottles Bacteria Cult, Aerobe / Anaerobe+Susc [[id number]] Collected: 12/30/21 1403 Lab Status: In process Specimen: Shoulder, Left Updated: 12/30/21 1538 Narrative: Bacterial Culture: Placed in Bactec aerobic and Bactec anaerobic bottles SARS Coronavirus 2, Molecular Detection, PCR, Varies Asymptomatic [[id number]] Collected: 12/29/21 1111 Lab Status: Final result [...] ----ADDITIONAL INFORMATION---- This RT-PCR test using the NuLife Recovery SARS-CoV-2 Assay ( Fullbridge.) performed on the NuLife Recovery Two Module System has received Emergency Use Authorization (EUA) by the U.S. Food and Drug Administration, and is modified from the garde manager's instructions with a bridging study. Performance characteristics were verified by [facility] in a manner consistent with CLIA requirements. Visit the CDC website: https://www.cdc.gov/coronavirus/ for the most recent guidelines on Coronavirus testing. Fact Sheet for Healthcare Providers: https://www.fda.gov/media/910363/download Fact Sheet for Patients: https://www.fda.gov/media/313120/download ASSESSMENT / PLAN IMPRESSION/REPORT/PLAN #1 Status post [...] 6 am, please page Arthur [facility] at [facility] [phone] ANALYST Trey Rdz R.N. - 12/31/2021 7:34 AM [...] with onq pump later today or tomorrow ANALYST Jey Matos D.O. - 12/31/2021 6:53 AM [...] - Date/Time Bacteria Cult, Aerobe / Anaerobe+Susc [[id number]] Collected: 12/30/21 1411 Lab Status: In process Specimen: Shoulder, Left Updated: 12/30/21 1540 Narrative: Bacterial Culture: Placed in Bactec aerobic and Bactec anaerobic bottles Bacteria Cult, Aerobe / Anaerobe+Susc [[id number]] Collected: 12/30/21 1405 Lab Status: In process Specimen: Synovial Fluid, Left Shoulder Updated: 12/30/21 1519 Narrative: Bacterial Culture: Placed in Bactec aerobic and Bactec anaerobic bottles Bacteria Cult, Aerobe / Anaerobe+Susc [[id number]] Collected: 12/30/21 1404 Lab Status: In process Specimen: Shoulder, Left Updated: 12/30/21 1536 Narrative: Bacterial Culture: Placed in Bactec aerobic and Bactec anaerobic bottles Bacteria Cult, Aerobe / Anaerobe+Susc [[id number]] Collected: 12/30/21 1403 Lab Status: In process Specimen: Shoulder, Left Updated: 12/30/21 1533 Narrative: Bacterial Culture: Placed in Bactec aerobic and Bactec anaerobic bottles Bacteria Cult, Aerobe / Anaerobe+Susc [[id number]] Collected: 12/30/21 1403 Lab Status: In process Specimen: Shoulder, Left Updated: 12/30/21 1538 Narrative: Bacterial Culture: Placed in Bactec aerobic and Bactec anaerobic bottles SARS Coronavirus 2, Molecular Detection, PCR, Varies Asymptomatic [[id number]] Collected: 12/29/21 1111 Lab Status: Final result [...] ----ADDITIONAL INFORMATION---- This RT-PCR test using the NuLife Recovery SARS-CoV-2 Assay ( Kaola100) performed on the NuLife Recovery Two Module System has received Emergency Use Authorization (EUA) by the U.S. Food and Drug Administration, and is modified from the garde manager's instructions with a bridging study. Performance characteristics were verified by [facility] in a manner consistent with CLIA requirements. Visit the CDC website: https://www.cdc.gov/coronavirus/ for the most recent guidelines on Coronavirus testing. Fact Sheet for Healthcare Providers: https://www.fda.gov/media/521528/download Fact Sheet for Patients: https://www.fda.gov/media/916421/download ASSESSMENT / PLAN IMPRESSION/REPORT/PLAN #1 Status post [...] Jey Matos, DO Shoulder & Elbow Fellow [facility] Orthopaedic Surgery For any questions or concerns from 6 am until 6 pm, please page Jam service For urgent matters from 6 pm until 6 am, please page Ortho House at [facility] [phone] Trey Phan R.N. - 12/30/2021 4:39 PM [...] She is registered with the state of [place] for medical [place] and she [place]. She was told to leave her [...] Take 150 mg by mouth every morning. mzcyirfxxt-yjnphgwqrovsa-mjlg (ESGIC) 50-325-40 mg per tablet Past Week [...] by mouth 2 (two) times a day. ANALYST documented in this encounter Procedure Notes Soraida [...] to release the adhesive from the skin. http://Xiaoying/products/secureportiv ANALYST documented in this encounter Consult Notes Ruth [...] (HCC) ??? Nicotine Dependence Unspecified ??? Other Long-Term Current Drug Therapy ??? Direct Infection Of [...] Right Lives With: Alone Receives Help From: beach attendant, Family, Friend(s) ADL Assistance: Required assistance ADL Assistance Comments: Gets help from GENERATING PLANT SUPERINTENDENT for her bath/shower and for her meals IADL/Homemaking Assistance: Required assistance IADL/Homemaking Assistance Comments: Gets help for housecleaning Driving: Independent Occupational Role: On disability Prior Mobility/Functional Transfers Level of [place]: Modified independent Gait Devices/Wheelchair Used: Cane Gait [...] session with call light in reach and GENERATING PLANT SUPERINTENDENT present, all needs metand questions answered. Contact monitoring: PPE used during therapy: Therapist was wearing the following PPE throughout entire session: surgicalmask and eye protection Patient was wearing a mask during therapy session: yes, when out of room Outcome Measures -[facility] Inpatient Short Form: AM-[facility] Basic Mobility (V.2) How much help [...] 3-5 steps with a railing?: A Lot -[facility] Basic Mobility (V.2) Raw Score: 17 -[facility] Basic Mobility (V.2) Standardized Score: 39.67 Interpretation: Clinicians answer the -[facility] Inpatient Short Form based on observed [...] (min): 36 min Ruth Gonzalez P.T., D.P.T. ANALYST Thao You L.I.C.S.Erma, M.S.W. - 12/31/2021 2:04 PM CSTAssociated Order(s): IP CONSULT TO CARE MANAGEMENT; IP CONSULT TO CARE MANAGEMENT; IP CONSULT TO CARE MANAGEMENT Psychosocial Assessment SUBJECTIVE DEMOGRAPHIC INFORMATION Person(s) present during interview: Patient Primary care clinic and provider: [facility] Primary Language: Zimbabwean Legal Information: Legal decision maker for self [...] / Household Status: Patient resides alone in [place], [place]. She lives in a two bedroom apartment. Patient has four adultchildren two of whom live in [place]. Patient son Rafal lives next door to patient. Support Systems: Family members, Friends/neighbors. We have not received permission to contact them. Primary caregiver: Self Accompanied by/Relationship: None Support System: Family members, Friends/neighbors Spirituality / Adventism / Culture: , None History: No Education: High school Employment: Disabled Psychosocial Risk Factors impacting the patient: Resides alone, mental health issues Abuse, Neglect, Maltreatment, Trauma: Current: None reported. Past: None reported. ENVIRONMENTAL SUPPORTS Current Living Situation: Private residence Patient's Home Environment: Resides in a two bedroom apartment [address] the [address] [facility] Care Facility Name (if applicable): NA [...] Behavior: Oriented Communication: Reads, writes and speaks Zimbabwean It is anticipated that the patient will need assistance with .Dressing,bathing, meal prep, housekeeping, shopping ASSISTIVE DEVICES Patient has the following equipment: Eyeglasses, Dentures upper, Dentures lower, cane, walker Patient anticipates potentially needing the following additional equipment: None Transportation needs: Independent to drive, support from family and friends SERVICES REQUESTED Infusion therapy [employer] Formal and Informal Resources: Patient receives home health aid services three times per week and longterm visit one time every two weeks through [facility]. FINANCES/INSURANCE Primary insurance: MEDICARE A AND B Secondary insurance: MEDICA ADVANCE DIRECTIVES Advance Directive: Patient does not have advance directive, does not want information DISCHARGE PLANNING Patient is planning on returning home upon her discharge. She currently receives home health aid services and longterm through [facility]. Patient also has support from a [...] good support [place], [place] [facility]. INTERVENTIONS ?? Psychosocial assessment ?? Rapport building ?? Education on coping with chronic pain. PLAN ?? Social work will continue to follow for discharge planning and support. ?? Social work did speak with Pat at [facility] to confirm home health services. ?? Social work will work on infusion therapy referrals as well as home health/outpatient picc site care and labs. Anticipated barriers to the transition of care/plan: None Joe Ervin, M.S.W. 12/31/2021 ANALYST Jose Guadalupe Nixon M.D. - 12/31/2021 7:31 AM CSTAssociated Order(s): IP CONSULT TO INFECTIOUS DISEASES Infectious Diseases Orthopedic Surgery [facility] Consulting Service Consult Note [...] resistance on OSH AST. She presented to [facility] (unclear if on antibiotics) for further evaluation given persistent L shoulder pain 08/2021 prompting aspiration (09/25/21) which revealed elevated TNC (30298) with 81% PMNs with cultures positive for1 [...] patient was subsequently admitted to [facility] for further management. Intraoperative cultures [...] - Date/Time Bacteria Cult, Aerobe / Anaerobe+Susc [[id number]] Collected: 12/30/21 1411 Lab Status: In process Specimen: Shoulder, Left Updated: 12/30/21 1540 Narrative: Bacterial Culture: Placed in Bactec aerobic and Bactec anaerobic bottles Bacteria Cult, Aerobe / Anaerobe+Susc [[id number]] Collected: 12/30/21 1405 Lab Status: In process Specimen: Synovial Fluid, Left Shoulder Updated: 12/30/21 1519 Narrative: Bacterial Culture: Placed in Bactec aerobic and Bactec anaerobic bottles Bacteria Cult, Aerobe / Anaerobe+Susc [[id number]] Collected: 12/30/21 1404 Lab Status: In process Specimen: Shoulder, Left Updated: 12/30/21 1536 Narrative: Bacterial Culture: Placed in Bactec aerobic and Bactec anaerobic bottles Bacteria Cult, Aerobe / Anaerobe+Susc [[id number]] Collected: 12/30/21 1403 Lab Status: In process Specimen: Shoulder, Left Updated: 12/30/21 1533 Narrative: Bacterial Culture: Placed in Bactec aerobic and Bactec anaerobic bottles Bacteria Cult, Aerobe / Anaerobe+Susc [[id number]] Collected: 12/30/21 1403 Lab Status: In process Specimen: Shoulder, Left Updated: 12/30/21 1538 Narrative: Bacterial Culture: Placed in Bactec aerobic and Bactec anaerobic bottles SARS Coronavirus 2, Molecular Detection, PCR, Varies Asymptomatic [[id number]] Collected: 12/29/21 1111 Lab Status: Final result [...] ----ADDITIONAL INFORMATION---- This RT-PCR test using the NuLife Recovery SARS-CoV-2 Assay ( Kaola100) performed on the NuLife Recovery Two Module System has received Emergency Use Authorization (EUA) by the U.S. Food and Drug Administration, and is modified from the garde manager's instructions with a bridging study. Performance characteristics were verified by [facility] in a manner consistent with CLIA requirements. Visit the CDC website: https://www.cdc.gov/coronavirus/ for the most recent guidelines on Coronavirus testing. Fact Sheet for Healthcare Providers: https://www.fda.gov/media/250214/download Fact Sheet for Patients: https://www.fda.gov/media/233469/download ASSESSMENT / PLAN 56-year-old female with a [...] is consistent with aspiration results from original [facility] evaluation which is likely business office representative of the culprit organism causing her [...] will follow along closely. Please page the [facility]-ID service pager at [phone] with questions. Thank you for the consultation. Jose Guadalupe Nixon M.D. ANALYST Associated attestation - Gucci Salvador M.D. - 12/31/2021 6:07 PM WAGE ANALYST DEMOGRAPHIC INFORMATION Clinic Number:[phone] Patient Name: Angie [...] Oxycodone. Oxycodone filled here at [facility] pharmacy. Patient going home with an interscalene block OnQ pump. Transportation provided by her son. ANALYST Fanny Sifuentes R.N. - 12/31/2021 11:00 PM [...] Nasal mucous membranes remain intact Outcome: Progressing ANALYST Ezequiel Hernandez R.N. - 12/30/2021 10:27 PM [...] staff assistance to bathroom. Navin Hernandez R.N. ANALYST documented in this encounter OR Notes Op Note - Cyrus Polk M.D. - 12/30/2021 2:50 PM CST STAFF: Cyrus Polk M.D. RESIDENT: Dario Carrera M.D. PRE-OPERATIVE DIAGNOSIS Left infected reverse arthroplasty. POST-OPERATIVE DIAGNOSIS Left infected reverse arthroplasty. A spa assistant manager was necessary for one or more [...] Cyrus Polk M.D. CT CT Job ID: [id number] ANALYST documented in this encounter Miscellaneous Notes Hospital [...] and pain is controlled on oral medications. ANALYST documented in this encounter Plan of Treatment Scheduled Referrals Name Type Priority Associated Diagnoses Order [facility] Outpatient Referral Routine Direct Infection Of Ordered: Health Referral Left Shoulder In 02/04/20 22 Infectious And Parasitic Diseases Classified Elsewhere (HCC) documented as of this encounter Procedures Procedure Name Priority Date/Time Associated Comments Diagnosis PLACE PERIPHERALLY Routine 01/01/2022 12:11 Resul ts for this INSERTED CENTRAL PM WAGE ANALYST procedure a re in CATHETER (PICC) the results section. REMOTE OXIMETRY Routine 12/31/2021 5:23 MONITORING CONT. PM WAGE ANALYST REMOTE OXIMETRY Routine 12/31/2021 5:23 MONITORING CONT. PM WAGE ANALYST BACTERIA / MANDI Routine 12/31/2021 4:04 Result s for this CULTURE, BLOOD PM WAGE ANALYST procedure are in the results section. BACTERIA / MANDI Routine 12/31/2021 3:52 Result s for this CULTURE, BLOOD PM WAGE ANALYST procedure are in the results section. ADULT OXYGEN THERAPY Routine 12/31/2021 8:01 AM WAGE ANALYST CBC WITH Routine 12/31/2021 4:25 Results for this DIFFERENTIAL, B AM WAGE ANALYST procedure ar e in the results section. BASIC METABOLIC Routine 12/31/2021 4:25 Results f or this PANEL, S/P AM WAGE ANALYST procedure are i n the results section. ADULT OXYGEN THERAPY Routine 12/30/2021 8:01 PM WAGE ANALYST ADULT OXYGEN THERAPY Routine 12/30/2021 5:12 PM WAGE ANALYST ADULT OXYGEN THERAPY Routine 12/30/2021 5:12 PM WAGE ANALYST ADULT OXYGEN THERAPY Routine 12/30/2021 3:46 PM WAGE ANALYST ADULT OXYGEN THERAPY Routine 12/30/2021 3:46 PM WAGE ANALYST DX SHOULDER LEFT 1 RAD - Timed (for 12/30/2021 3:41 Re sults for this VIEW specific PM WAGE ANALYST procedure are i n dates/times) the results section. SURGICAL PATHOLOGY, Routine 12/30/2021 2:15 Shoulder Joint Res ults for this FROZEN LAB PM WAGE ANALYST Disorder Left procedure are in the results section. BACTERIA CULT, Routine 12/30/2021 2:11 Results fo r this AEROBE/ANAEROBE+SUSC PM WAGE ANALYST procedu re are in the results section. BACTERIA CULT, Routine 12/30/2021 2:05 Results fo r this AEROBE/ANAEROBE+SUSC PM WAGE ANALYST procedu re are in the results section. BACTERIA CULT, Routine 12/30/2021 2:04 Results fo r this AEROBE/ANAEROBE+SUSC PM WAGE ANALYST procedu re are in the results section. BACTERIA CULT, Routine 12/30/2021 2:03 Results fo r this AEROBE/ANAEROBE+SUSC PM WAGE ANALYST procedu re are in the results section. BACTERIA CULT, Routine 12/30/2021 2:03 Results fo r this AEROBE/ANAEROBE+SUSC PM WAGE ANALYST procedu re are in the results section. ARTHROPLASTY 12/30/2021 12:34 Shoulder Joint RESECTION SHOULDER PM WAGE ANALYST Disorder Left documented in this encounter Results Place peripherally inserted central catheter (PICC) (01/01/2022 12:11 PM WAGE ANALYST) Narrative MMODAL - 01/01/2022 12:11 PM WAGE ANALYST Soraida Dick R.N. ? 01/01/2022 12:13 PM [...] to release the adhesive from the skin. [email or web address] [email or web address] Dario Carrera M.D. PROCEDURE/MINOR SURGICAL ORD ERABLES Performing Organization Address City/State/ZIP Code Phon e Number MMODAL MMODAL NA Bacteria / Mandi Culture, Blood #2 (12/31/2021 4:04 PM WAGE ANALYST) [facility] gist Method Time Signature Bacteria/Valerie No growth 01/05/2022 DTL da Culture, after 5 5:02 PM WAGE ANALYST Blood days of incubation. Specimen (Source) Anatomical Collection Method Collection Time Re ceived Time Location / / Volume Laterality Blood (Blood, 12/31/2021 4:04 12/31/2021 4:51 Peripheral Draw) PM WAGE ANALYST PM WAGE ANALYST Comment: Specimen Source Site: Blood Narrative [facility] [place] - 01/05/2022 5:02 PM WAGE ANALYST Received Bactec aerobic and Bactec anaer obic bottles Dario Carrera M.D. LAB MICROBIOLOGY - GENERAL O PATERASARAH Performing Organization Address City/[facility] Phon e Number [facility] - [address] [place], [place] [address] [place] [address] Bacteria / Mandi Culture, Blood #1 (12/31/2021 3:52 PM WAGE ANALYST) [facility] Method Time Signature Bacteria/Valerie No growth 01/05/2022 DT da Culture, after 5 5:02 PM WAGE ANALYST Blood days of incubation. Specimen (Source) Anatomical Collection Method Collection Time Re ceived Time Location / / Volume Laterality Blood (Blood, 12/31/2021 3:52 12/31/2021 4:50 Peripheral Draw) PM WAGE ANALYST PM WAGE ANALYST Comment: Specimen Source Site: Blood Narrative [facility] [place] - 01/05/2022 5:02 PM WAGE ANALYST Received Bactec aerobic and Bactec anaer obic bottles Dario Carrera M.D. LAB MICROBIOLOGY - GENERAL O MARY Performing Organization Address City/[facility] Phon e Number [facility] - [address] [place] [address] [place] [address] (ABNORMAL) CBC with Differential, Blood (12/31/2021 4:25 AM WAGE ANALYST) [facility] Method Time Signature Hemoglobin 8.9 (L) 11.6 - 12/31/2021 DTL 15.0 g/dL 5:15 AM WAGE ANALYST Hematocrit 27.3 (L) 35.5 - 12/31/2021 DTL 44.9 % 5:15 AM WAGE ANALYST Erythrocytes 3.26 (L) 3.92 - 12/31/2021 DTL 5.13 5:15 AM WAGE ANALYST x10(12)/L MCV 83.7 78.2 - 12/31/2021 DTL 97.9 fL 5:15 AM WAGE ANALYST RBC Distrib Width 19.6 (H) 12.2 - 12/31/2021 DTL 16.1 % 5:15 AM WAGE ANALYST Platelet Count 274 157 - 371 12/31/2021 DTL x10(9)/L 5:15 AM WAGE ANALYST Leukocytes 6.6 3.4 - 9.6 12/31/2021 DTL x10(9)/L 5:15 AM WAGE ANALYST Neutrophils 4.91 1.56 - 12/31/2021 DTL 6.45 5:15 AM WAGE ANALYST x10(9)/L Lymphocytes 1.10 0.95 - 12/31/2021 DTL 3.07 5:15 AM WAGE ANALYST x10(9)/L Monocytes 0.61 0.26 - 12/31/2021 DTL 0.81 5:15 AM WAGE ANALYST x10(9)/L Eosinophils <0.03 0.03 - 12/31/2021 DTL 0.48 5:15 AM WAGE ANALYST x10(9)/L Basophils <0.03 0.01 - 12/31/2021 DTL 0.08 5:15 AM WAGE ANALYST x10(9)/L Specimen Anatomical Collection Method Collection Time Receive d Time (Source) Location / / Volume Laterality Blood (Blood, 12/31/2021 4:25 AM 12/31/19 5:04 Venous) WAGE ANALYST AM WAGE ANALYST Dario Carrera M.D. LAB BLOOD ADD-ON Performing Organization Address City/State/ZIP Code Phon e Number [facility] - [address] [place] [phone] [place] [address] [facility] [address] [facility] (ABNORMAL) Basic Metabolic Panel (12/31/2021 4:25 AM WAGE ANALYST) P athologist Signature Potassium, S 4.4 3.6 - 5.2 12/31/2021 DTL mmol/L 5:35 AM WAGE ANALYST Sodium, S 134 (L) 135 - 145 12/31/2021 DTL mmol/L 5:35 AM WAGE ANALYST Chloride, S 103 98 - 107 12/31/2021 DTL mmol/L 5:35 AM WAGE ANALYST Bicarbonate, S 22 22 - 29 12/31/2021 DTL mmol/L 5:35 AM WAGE ANALYST Anion Gap 9 7 - 15 12/31/2021 DTL 5:35 AM WAGE ANALYST BUN (Blood Urea 21 6 - 21 12/31/2021 DTL Nitrogen), S mg/dL 5:35 AM WAGE ANALYST Creatinine 0.74 0.59 - 12/31/2021 DTL 1.04 mg/dL 5:35 AM WAGE ANALYST eGFR-Non 90 >=60 12/31/2021 DTL Black/ mL/min/BSA 5:35 AM WAGE ANALYST [place] Comment: ----ADDITIONAL INFORMATION---- Estimated GFR calculated using the 2009 CKD_EPI creatinine equation. eGFR-Black/ >90 >=60 mL/min/BSA 2021 5:35 AM WAGE ANALYST DTL Comment: ----ADDITIONAL INFORMATION---- Estimated GFR calculated using the 2009 CKD_EPI creatinine equation. Calcium, Total, S 8.7 8.6 - 10.0 mg/dL 12/31/2021 5:35 AM WAGE ANALYST DTL Glucose, S 138 70 - 140 mg/dL 12/31/2021 5:35 AM WAGE ANALYST D TL Specimen Anatomical Collection Method Collection Time Receive d Time (Source) Location / / Volume Laterality Blood (Blood, 12/31/2021 4:25 AM 12/31/19 5:18 Venous) WAGE ANALYST AM WAGE ANALYST Dario Carrera M.D. LAB BLOOD ADD-ON Performing Organization Address City/State/ZIP Code Phon e Number [facility] - [address] [place], [place] [address] [address] [place] [address] [facility] [address] DX Shoulder Left 1 View (12/30/2021 3:41 PM WAGE ANALYST) Anatomical Region Laterality Modality Upper Extremity, Shoulder, Musculoskeletal RST LOS, Left Computed Radiography Musculoskeletal ARZ LOS, Muskuloskeletal FLA LOS Specimen (Source) Anatomical Collection Method Collection Time Re ceived Time Location / / Volume Laterality 12/30/2021 3:54 PM WAGE ANALYST Impressions 12/30/2021 3:59 PM WAGE ANALYST Postoperative changes of a left shoulder arthroplasty resection and placement of an antibiotic spacer. Negat lalo for postoperative purposes. Narrative 12/30/2021 3:59 PM WAGE ANALYST EXAM: ??DX SHOULDER LEFT 1 VIEW Procedure Note Timothy Resendiz M.D. - 12/30/2021Forma tting of this note might be different from the original. EXAM: DX SHOULDER LEFT 1 VIEW IMPRESSION: Postoperative changes of a left shoulder arthroplasty resection and placement of an antibiotic spacer. Negat lalo for postoperative purposes. Dario Carrera M.D. IMG DIAGNOSTIC IMAGING [facility] Surgical Pathology, Frozen Lab (12/30/2021 2:15 PM WAGE ANALYST) Component Value Ref Test Analysis Performed At [facility] [employer] Range Method Time Signature 01/01/2022 METH 8:22 AM WAGE ANALYST Participated in Kelly Howard, 01/01/2022 METH the D.O.-Pathology 8:22 AM WAGE ANALYST Interpretation Resident Report Solomon Marcum M.D. 01/01/2022 METH electronically 8:22 AM WAGE ANALYST signed by I verify that I have examined all relevant slides/materials for the specimen(s) and rendered or confirmed the diagnosis. Frozen A. ??Synovium, left shoulder, excision: ??Synovial tissue 01/01/2022 METH Intraoperative with 8:22 AM WAGE ANALYST Report acute inflammation (>5 neutrophils/high power field). Signed by Solomon Marcum M.D. 12/31/2021 8:17 AM Gross Description A. ??Received fresh labeled left shoulder is a 1.4 x 0.9 x 01/01/2022 METH 0.4 cm aggregate of red and campbell fibrous tissue, which is 8:22 AM WAGE ANALYST soft. ??All submitted for frozen and permanent sections. Grossed by Nikki Gallardo. Block Summary A Left shoulder 01/01/2022 METH A1 Left shoulder-frozen 8:22 AM WAGE ANALYST Interpretation FINAL DIAGNOSIS 01/01/2022 METH 8:22 AM WAGE ANALYST A. ??Synovium, left shoulder, excision: ??Synovial tissue with acute inflammation (>5 neutrophils/high power field). Specimen (Source) Anatomical Collection Method Collection Time Re ceived Time Location / / Volume Laterality Tissue (Shoulder, 12/30/2021 2:15 PM Left) WAGE ANALYST Narrative This result has an attachment that is no t available. Cyrus Polk M.D. LAB SURG PATH ORDERABLES Performing Organization Address City/State/ZIP Code Phon e Number [facility] - [address] [place], [place] [address] [place] [address] [facility] [address] Bacteria Cult, Aerobe / Anaerobe+Susc (12/30/2021 2:11 PM WAGE ANALYST) [employer] Method Time Signature Bacteria Cult, No growth 01/13/2022 DTL Aerobe/Anaerob after 14 4:02 PM WAGE ANALYST e+Susc days of incubation. Specimen Anatomical Collection Method Collection Time Receive d Time (Source) Location / / Volume Laterality Shoulder, Left 12/30/2021 2:11 PM 022 3:38 WAGE ANALYST PM WAGE ANALYST Comment: Specimen Source Site: Tissue #4 Narrative [facility] - 01/13/2022 4:02 PM WAGE ANALYST Bacterial Culture: Placed in Bactec aero bic and Bactec anaerobic bottles Cyrus Polk M.D. LAB MICROBIOLOGY - GENERAL O RDERABLES Performing Organization Address City/State/ZIP Code Phon e Number [facility] [address] [place], [place] [address] [place] [address] [facility] [address] (ABNORMAL) Bacteria Cult, Aerobe / Anaerobe+Susc (12/30/2021 2:05 PM WAGE ANALYST) Component Value Ref Test Analysis Performed At [facility] [employer] Range Method Time Signature Bacteria STAPHYLOCOCCUS EPIDERMIDIS 01/11/2022 DT L Cult, Growth after 4 days 7:55 AM WAGE ANALYST Aerobe/Anaero (A) be+Susc Comment: Semi-Urgent Result. Semi-Urgent This is a semi-urgent result [facility] () [facility] Specimen Anatomical Collection Method Collection Time Receive d Time (Source) Location / / Volume Laterality Synovial Fluid, 12/30/2021 2:05 PM 2021 3:17 Left Shoulder WAGE ANALYST PM WAGE ANALYST Comment: Specimen Source Site: Fluid Narrative [facility] - 01/11/2022 7:55 AM WAGE ANALYST Bacterial Culture: Placed in Bactec aero bic [...] - GENERAL O MARY Performing Organization Address [facility] Phon e Number [facility] - [address] [place] [address] Bacteria Cult, Aerobe / Anaerobe+Susc (12/30/2021 2:04 PM WAGE ANALYST) [facility] Signature Bacteria Cult, No growth 01/13/2022 [facility] Aerobe/Anaerob after 14 4:02 PM WAGE ANALYST e+Susc days of incubation. Specimen Anatomical Collection Method Collection Time Receive d Time (Source) Location / / Volume Laterality Shoulder, Left 12/30/2021 2:04 PM 022 3:34 WAGE ANALYST PM WAGE ANALYST Comment: Specimen Source Site: Tissue #3 Narrative [facility] [place] - 01/13/2022 4:02 PM WAGE ANALYST Bacterial Culture: Placed in Bactec aero bic and Bactec anaerobic bottles Cyrus Polk M.D. LAB MICROBIOLOGY - GENERAL O MARY Performing Organization Address City/[facility] Phon e Number [facility] - [address] Bacteria Cult, Aerobe / Anaerobe+Susc (12/30/2021 2:03 PM WAGE ANALYST) [facility] Method Time Signature Bacteria Cult, No growth 01/13/2022 DTL Aerobe/Anaerob after 14 4:02 PM WAGE ANALYST e+Susc days of incubation. Specimen Anatomical Collection Method Collection Time Receive d Time (Source) Location / / Volume Laterality Shoulder, Left 12/30/2021 2:03 PM 022 3:37 WAGE ANALYST PM WAGE ANALYST Comment: Specimen Source Site: Tissue #2 Narrative [facility] - 01/13/2022 4:02 PM WAGE ANALYST Bacterial Culture: Placed in Bactec aero bic and Bactec anaerobic bottles Cyrus Polk M.D. LAB MICROBIOLOGY - GENERAL O RDSONIA Performing Organization Address City/[facility] Phon e Number [facility] - [address] Bacteria Cult, Aerobe / Anaerobe+Susc (12/30/2021 2:03 PM WAGE ANALYST) [facility] Method Time Signature Bacteria Cult, No growth 01/13/2022 DTL Aerobe/Anaerob after 14 4:02 PM WAGE ANALYST e+Susc days of incubation. Specimen Anatomical Collection Method Collection Time Receive d Time (Source) Location / / Volume Laterality Shoulder, Left 12/30/2021 2:03 PM 022 3:31 WAGE ANALYST PM WAGE ANALYST Comment: Specimen Source Site: Tissue #1 Narrative [facility] - 01/13/2022 4:02 PM WAGE ANALYST Bacterial Culture: Placed in Bactec aero bic and Bactec anaerobic bottles Cyrus Polk M.D. LAB MICROBIOLOGY - GENERAL O RDSONIA Performing Organization Address City/State/[facility] Phon e Number [facility] - [address] [place], [place] [address] [place], [place] [id number] [place] [address] documented in this encounter Visit Diagnoses Diagnosis [...] tablet 1,000 mg Given 01/01/2022 11:36 AM WAGE ANALYST 1,00 0 mg (TYLENOL) 1,000 mg, oral, Every 6 hours, First dose on Tue12/30/21 at 1800 Given 01/01/2022 6:28 AM WAGE ANALYST 1,000 mg Given 12/31/2021 11:51 PM WAGE ANALYST 1,000 mg albuterol nebulizer solution 2.5 mg Given 12/31/2021 4:44 PM WAGE ANALYST 2.5 mg 2.5 mg, nebulization, Every 6 hours PRN, wheezing, Starting on Tue12/30/21 at 1711, Albuterol nebs were interchanged for albuterol/levalbuterol MDI (same frequency) atorvastatin tablet 80 mg (LIPITOR) Given 12/31/2021 8:57 PM WAGE ANALYST 80 mg 80 mg, oral, Daily at bedtime, First dose on Tue12/30/21 at 2100 Given 12/30/2021 9:55 PM WAGE ANALYST 80 mg benzonatate capsule 100 mg (TESSALON PER LES) Given 01/01/2022 3:10 AM WAGE ANALYST 100 mg 100 mg, oral, 3 times daily PRN, cough, Starting on Tue12/31/21 at 1702, Swallow whole. Do NOT crush, chew or open capsule. Given 12/31/2021 5:39 PM WAGE ANALYST 100 mg bupivacaine PF 0.2 % 550 mL in NaCl New Bag 01/01/2022 3:15 PM WAGE ANALYST 6 mL/hr 6 mL/hr 0.9% On-Q pain pump (CB004) 6 mL/hr, nerve catheter, Continuous, Starting on Tue01/01/22 at 1500, PACU & Post-Op, Location: Nerve Catheter Location, Nerve Catheter Location: Interscalene, Device: On-Q Pump bupivacaine PF 0.2 % in Rate/Dose Verify 01/01/2022 1:00 AM WAGE ANALYST 6 mL/ hr 6 mL/hr NaCl 0.9% 341 mL infusion (MARCAINE) 6 mL/hr, nerve catheter, Continuous, Starting on Tue12/30/21 at 1600, PACU & Post-Op, Nerve Catheter Location: Interscalene, Device: Hospital Infusion Pump Rate/Dose Verify 12/31/2021 12:11 AM WAGE ANALYST 6 mL/hr 6 mL/hr New Bag 12/30/2021 3:49 PM WAGE ANALYST 6 mL/hr 6 mL/hr buPROPion XL 24 hr tablet 150 mg (WELLBUTRIN Given 02/2022 8:35 AM WAGE ANALYST 150 mg XL) 150 mg, oral, Every morning, First dose on Tue12/31/21 at 0900, Swallow whole. Do NOT crush, chew, or split tablet. Given 12/31/2021 8:16 AM WAGE ANALYST 150 mg calcium carbonate chewable tablet Given 12/31/2021 11: 46 PM WAGE ANALYST 400 mg of calcium 400 mg of calcium (TUMS) 400 mg of calcium, oral, Every 2 hour PRN, indigestion, Starting on Tue12/30/21 at 1711, Doses listed are in mg of elemental calcium. Take with food. 500 mg calcium carbonate contains 200 mg of elemental calcium. Given 12/31/2021 9:15 PM WAGE ANALYST 400 mg of calcium carboxymethylcellulose 0.5 % ophthalmic Given 01/01/2022 1:15 AM WAGE ANALYST 2 drops solution 2 drop (REFRESH PLUS) 2 drop, both eyes, 4 times daily PRN, dry eyes, Starting on Tue12/30/21 at 1711 Given 12/31/2021 12:31 PM WAGE ANALYST 2 drops Given 12/31/2021 12:23 AM WAGE ANALYST 2 drops cefTRIAXone in dextrose (iso-osm) IVPB New Bag 01/01/2022 2:38 PM WAGE ANALYST 2 g 200 mL/hr 2 g (ROCEPHIN) 2 g, intravenous, at 200 mL/hr, Administer over 15 Minutes, Daily before lunch, First dose on Tue01/01/22 at 1345, Drug Monitoring Program: Pharmacist to adjust medication dosing based on indication and drug clearance factors., Indications: Bone and/or joint infection cetirizine tablet 10 mg (ZyrTEC) Given 01/01/2022 8:35 AM WAGE ANALYST 10 mg 10 mg, oral, 2 times daily, First dose on Tue12/30/21 at 2100, Drug Monitoring Program: Pharmacist to adjust medication dosing based on indication and drug clearance factors. Given 12/31/2021 8:57 PM WAGE ANALYST 10 mg Given 12/31/2021 8:16 AM WAGE ANALYST 10 mg cholecalciferol (vitamin D3) tablet 25 m cg Given 01/01/2022 8:35 AM WAGE ANALYST 25 mcg 25 mcg, oral, Daily, First dose on Tue12/31/21 at 0900, cholecalciferol (vitamin D3) orderable was interchanged for cholecalciferol (vitamin D3) tablet/capsule Given 12/31/2021 8:16 AM WAGE ANALYST 25 mcg D5W infusion 10-250 mL/hr, intravenous, [...] 5 mg (VALIUM) Given 12/31/2021 12:31 PM WAGE ANALYST 5 mg 5 mg, oral, 4 times daily PRN, muscle spasms, Starting on Tue12/30/21 at 2243 Given 12/31/2021 1:59 AM WAGE ANALYST 5 mg diphenhydrAMINE capsule 25 mg (BENADRYL) 25 mg, oral, Daily PRN, itching, Starting on Tue 2 at 0854 diphenhydrAMINE capsule 75 mg (BENADRYL) Given 01/01/2022 8:49 AM WAGE ANALYST 75 mg 75 mg, oral, Bedtime PRN, sleep, Starting on Tue12/30/21 at 1715 FLUoxetine capsule 80 mg (PROzac) Given 01/01/2022 8:34 AM WAGE ANALYST 80 mg 80 mg, oral, Daily, First dose on Tue12/31/21 at 0900, FLUoxetine orderable was interchanged for FLUoxetine tablet/capsule Given 12/31/2021 8:16 AM WAGE ANALYST 80 mg fluticasone furoate 100 mcg/actuation Given 01/01/2022 8:[address] 2 puffs inhaler 2 puff (ARNUITY ELLIPTA) 2 puff, inhalation, 2 times daily, First dose on Tue12/30/21 at 2100, fluticasone furoate 100 mcg was interchanged for fluticasone MDI 110 mcg Given 12/31/2021 9:04 PM WAGE ANALYST 2 puffs Given 12/31/2021 8:17 AM WAGE ANALYST 2 puffs gentamicin powder (for bone Given 12/30/2021 2:40 PM WAGE ANALYST 4 vials Left Shoulder cement) As needed, Starting on Tue12/30/21 at 1440, Intra-Op heparin PF flush syringe 50-150 Units 50-150 Units, intravenous, Once as neede d, line care, 50 units (5 mL) to each lumen of non-valved catheters only, Starting on Tue01/01/22 a t 0817, For 1 dose HYDROmorphone (PF) injection 0.4 mg Given 01/01/2022 4:56 AM WAGE ANALYST 0.4 mg (DILAUDID) 0.4 mg, intravenous, Every 2 hour PRN, severe pain or score 7-10 of 10, Starting on Tue12/30/21 at 1711, For 5 doses, May administer if pain is greater than 7 after scheduled and PRN regimen exhausted. If pain remains greater than 7, notify primary service. Given 12/31/2021 11:35 AM WAGE ANALYST 0.4 mg Given 12/31/2021 4:14 AM WAGE ANALYST 0.4 mg ipratropium-albuteroL 0.5-2.5 mg/3 mL nebulizer Given 01/01/2022 3:15 AM WAGE ANALYST 3 mL solution 3 mL (DUONEB) 3 mL, nebulization, 4 times daily PRN, shortness of breath, wheezing, Starting on Tue12/30/21 at 1711 lactated ringers Rate/Dose Change 01/01/2022 1:00 AM WAGE ANALYST 20 mL/hr 20 mL/hr 75 mL/hr, intravenous, Continuous, Starting on Tue12/30/21 at 1715, Until patient has 500cc po intake New Bag 12/31/2021 11:46 PM WAGE ANALYST 75 mL/hr 75 mL/hr Rate/Dose Change 12/31/2021 3:55 AM WAGE ANALYST 20 mL/hr 20 mL/hr lactated ringers Continued from OR 12/30/2021 4:00 PM WAGE ANALYST 75 mL/hr 75 mL/hr 75 mL/hr, intravenous, Continuous, Starting on Tue12/30/21 at 1600, PACU & Post-Op lamoTRIgine tablet 200 mg (LaMICtaL) Given 01/01/2022 8:34 AM WAGE ANALYST 200 mg 200 mg, oral, 2 times daily, First dose on Tue12/30/21 at 2100 Given 12/31/2021 8:56 PM WAGE ANALYST 200 mg Given 12/31/2021 8:16 AM WAGE ANALYST 200 mg methylene blue 0.5 % (5 mg/mL) Given 12/30/2021 2:39 PM WAGE ANALYST 2 mL Left Shoulder injection As needed, [...] 10 mg (ROXICODONE) Given 01/01/2022 2:38 PM WAGE ANALYST 10 mg 10 mg, oral, Every 3 hours PRN, severe pain or score 7-10 of 10, Starting on Tue12/31/21 at 1745 Given 01/01/2022 11:35 AM WAGE ANALYST 10 mg Given 01/01/2022 7:07 AM WAGE ANALYST 10 mg oxyCODONE IR tablet 5 mg (ROXICODONE) 5 mg, oral, Every 3 hours PRN, moderate pain or score 4-6 of 10, Starting on Tue12/31/21 at 1745, If patient is >75 consider changing to 2.5-5mg scale pantoprazole DR tablet 40 mg (PROTONIX) Given 01/01/2022 3:46 PM WAGE ANALYST 40 mg 40 mg, oral, 2 times daily before breakfast and dinner, First dose on Tue12/31/21 at 0700, pantoprazole 40 mg oral twice daily was interchanged for esomeprazole 20 or 40 mg oral twice daily Swallow whole. Do NOT crush, chew, or split tablet. Given 01/01/2022 6:29 AM WAGE ANALYST 40 mg Given 12/31/2021 4:47 PM WAGE ANALYST 40 mg pregabalin capsule 600 mg (LYRICA) Given 01/01/2022 8:34 AM WAGE ANALYST 600 mg 600 mg, oral, 2 times daily, First dose on Tue12/30/21 at 2100 Given 12/31/2021 8:56 PM WAGE ANALYST 600 mg Given 12/31/2021 8:15 AM WAGE ANALYST 600 mg QUEtiapine tablet 50 mg (SEROquel) Given 12/31/2021 8:57 PM WAGE ANALYST 50 mg 50 mg, oral, Daily at bedtime, First dose on Tue12/30/21 at 2100 Given 12/30/2021 9:55 PM WAGE ANALYST 50 mg sennosides-docusate sodium 8.6-50 mg per Given 01/01/2022 8:35 A M WAGE ANALYST 1 tablet tablet 1 tablet (SENOKOT-S) 1 tablet, oral, 2 times daily, First dose on Tue12/30/21 at 2100, Do not give if patient has diarrhea. Given 12/31/2021 8:57 PM WAGE ANALYST 1 tablet Given 12/31/2021 8:16 AM WAGE ANALYST 1 tablet sodium chloride 0.9 % injection [...] injection 3 mL Given 12/31/2021 8:18 AM WAGE ANALYST 3 mL 3 mL, intravenous, Every 12 hours scheduled, First dose on Tue12/30/21 at 2100, PACU & Post-Op, Peripheral Intravenous Catheter and Rapid Infusion Catheter, when no infusion to maintain patency Given 12/30/2021 9:53 PM WAGE ANALYST 3 mL vancomycin powder Given 12/30/2021 2:40 PM WAGE ANALYST 4 g Left Shoulder As needed, Starting on Tue12/30/21 at 1440, Intra-Op zonisamide capsule 300 mg (ZONEGRAN) Given 01/01/2022 8:35 AM WAGE ANALYST 300 mg 300 mg, oral, 2 times daily, First dose on Tue12/30/21 at 2100, Swallow whole. Do NOT crush, chew or open capsule. Given 12/31/2021 8:57 PM WAGE ANALYST 300 mg Given 12/31/2021 8:16 AM WAGE ANALYST 300 mg documented in this encounter Active and Recently Administered Medications Times are shown in WAGE ANALYST. 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
--- OUTSIDE RECORDS SUMMARY | 2022-08-01 07:44 | XMS_ITS | Encounter Summary ---
:1965 Author Organization [facility] Address [address] [place] [address] Care Team Providers Name Role Phone Elsewhere, Pcp Primary Care Provider Unavailable Encounter Details Date Type Department Care Team Description 01/01/2022 Clinical Communication [facility] Sapna Dodge C.Ph.T. [address] [facility] [phone] [place], [place] (Work) [phone] Social History Tobacco Use [...] you attend [employer]abaptism or Patient refused 2021 druze services? Do [...] documented as of this encounter Care Teams Coremaker Machine Relationship Specialty Start Date End Date Elsewhere, Pcp PCP - General Family Medicine 12/25/21 documented as of this encounter
--- OUTSIDE RECORDS SUMMARY | 2022-08-01 07:44 | XMS_ITS | Encounter Summary ---
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 [address] [place] [phone] Referral ID Status Reason Start Date Expiration Date Visits V isits Requested Authorized [id number] Authorized 01/01/2022 01/01/2023 1 1 OR BUSINESS DEVELOPMENT ANALYST Encounter Details Date Type Department Care Team Description 12/30/2021 - Hospital Encounter [facility] Kulwant Polk M.D. [address] [place] [phone] Pain Shoulder Left (Primary Dx); 01/01/2022 Hospital, [facility] Kennedi Vera MPAS, P.A.-C. [address] [place] [phone] Shoulder Joint Disorder Left; Afshin Blasenberg Direct Inf ection Of Left Shoulder In Infectious And Parasitic Diseases Classified Elsewhere (HCC) Building, Eighth Floor [address] [place] [phone] Social History Tobacco Use Types Packs/Day Years [...] you attend islam or Patient refused 2021 yazdanism services? Do [...] Comments Blood Pressure 141/91 01/01/2022 4:26 PM SENIOR BUSINESS DEVELOPMENT ANALYST Pulse 95 01/01/2022 4:26 PM SENIOR BUSINESS DEVELOPMENT ANALYST Temperature 36.8 ??C (98.2 ??F) 01/01/2022 4:26 PM SENIOR BUSINESS DEVELOPMENT ANALYST Respiratory Rate 18 01/01/2022 4:26 PM SENIOR BUSINESS DEVELOPMENT ANALYST Oxygen Saturation 93% 01/01/2022 4:26 PM SENIOR BUSINESS DEVELOPMENT ANALYST Inhaled Oxygen Concentration - - Weight 69.9 kg (154 lb 1.6 12/30/2021 11:22 AM oz) SENIOR BUSINESS DEVELOPMENT ANALYST Height 150.5 cm (4' 11.25) 12/30/2021 11:22 AM no shoe s/boots SENIOR BUSINESS DEVELOPMENT ANALYST Body Mass Index 30.86 12/30/2021 11:22 AM SENIOR BUSINESS DEVELOPMENT ANALYST documented in this encounter Discharge Summaries Dario Carrera M.D. - 01/01/2022 8:50 AM CST DISCHARGE SUMMARY BRIEF OVERVIEW Hospital: [facility] Discharge Provider: Cyrus Polk M.D. Primary [...] [facility] OR DISCHARGE DISPOSITION Home-Health Care [facility] [6] ACTIVE ISSUES REQUIRING FOLLOW UP Active [...] were provided to the patient and caregiver(s). OR BUSINESS DEVELOPMENT ANALYST documented in this encounter Discharge Instructions AttachmentsThe following attachments cannot be sent through Care Everywhere. Continuous Nerve-Block Infusion System: Often called a ???pain pump?? (Chilean) documented in this encounter Medications at Time [...] THC multivit-min/iron/folic/ Take 1 tablet by 0 [id number] (HAIR, SKIN AND mouth daily. NAILS ADVANCED [...] when she got up for the day. OR BUSINESS DEVELOPMENT ANALYST Ruth Gonzalez P.T., D.P.T. - 01/01/2022 4:29 [...] mask during therapy session: no Outcome Measures -[facility] Inpatient Short Form: -[facility] Basic Mobility (V.2) How [...] [facility] Basic Mobility (V.2) Raw Score: 23 AM-PAC Basic Mobility (V.2) Standardized Score: 50.88 Interpretation: Clinicians answer the AM-[facility] Inpatient Short Form based [...] quad cane since it is not available [facility] by prescription. Barriers to Discharge Home: Other [...] (min): 23 min Ruth Gonzalez P.T., Juice.P.TBritton OR BUSINESS DEVELOPMENT ANALYST Elvira Duncan R.N. - 01/01/2022 3:21 [...] educational pamphlet Continuous Nerve-Block Infusion System ( [id number]).?? Discussed at home removal of nervecatheter, signs [...] our ownership and financial relationship of the [facility]/home health & hospice agencies. Reviewed insurance coverage, [...] Address Phone Fax Patient Preferred [facility] [address], [place] [id number] -- Contact: Intake NURSING: - Adjust the [...] draws will be managed by Outpatient Facility: [facility] Address: [address] , [place], [place] Contact: Princess They will provide IV [...] continue to follow. Joe Ervin, M.S.W. 01/01/2022 OR BUSINESS DEVELOPMENT ANALYST Gucci Salvador M.D. - 01/01/2022 10:45 [...] questions answered to patient's satisfaction. Please page [phone] for questions. 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 [id number] OR BUSINESS DEVELOPMENT ANALYST Pamela Crawford Pharm.D., R.Ph. - 01/01/2022 10:14 [...] on post-operative opioids Pamela Crawford Pharm.D., R.Ph. [phone] OR BUSINESS DEVELOPMENT ANALYST Jose Guadalupe Nixon M.D. - 01/01/2022 8:31 AM CST Infectious Diseases Orthopedic Surgery [facility] Consulting Service Progress Note SUBJECTIVE -No acute [...] Date/Time Bacteria / Mandi Culture, Blood #2 [[id number]] Collected: 12/31/21 1604 Lab Status: In process Specimen: Blood, Peripheral Draw Updated: 12/31/21 1651 Narrative: Received Bactec aerobic and Bactec anaerobic bottles Specimen Information: Specimen ID: [id number] Specimen Source: Blood, Peripheral Draw Specimen Comment: Specimen Source Site: Blood Specimen Collection Start Date: 12/31/2021 4:05 PM Specimen Received Date: 12/31/2021 4:51 PM Specimen ID: [id number] Specimen Source: Blood, Peripheral Draw Specimen Comment: Specimen Source Site: Blood Specimen Collection Start Date: 12/31/2021 4:05 PM Specimen Received Date: 12/31/2021 4:51 PM Specimen ID: [id number] Specimen Source: Blood, Peripheral Draw Specimen Comment: Specimen Source Site: Blood Specimen Collection Start Date: 12/31/2021 4:04 PM Specimen Received Date: 12/31/2021 4:51 PM Bacteria / Mandi Culture, Blood #1 [[id number]] Collected: 12/31/21 1552 Lab Status: In process Specimen: Blood, Peripheral Draw Updated: 12/31/21 165 Narrative: Received Bactec aerobic and Bactec anaerobic bottles Specimen Information: Specimen ID: [id number] Specimen Source: Blood, Peripheral Draw Specimen Comment: Specimen Source Site: Blood Specimen Collection Start Date: 12/31/2021 3:52 PM Specimen Received Date: 12/31/2021 4:50 PM Specimen ID: [id number] Specimen Source: Blood, Peripheral Draw Specimen Comment: Specimen Source Site: Blood Specimen Collection Start Date: 12/31/2021 3:53 PM Specimen Received Date: 12/31/2021 4:50 PM Specimen ID: [id number] Specimen Source: Blood, Peripheral Draw Specimen Comment: Specimen Source Site: Blood Specimen Collection Start Date: 12/31/2021 3:53 PM Specimen Received Date: 12/31/2021 4:50 PM Bacteria Cult, Aerobe / Anaerobe+Susc [[id number]] Collected: 12/30/21 1411 Lab Status: Preliminary result Specimen: Shoulder, Left Updated: 12/31/21 1601 Bacteria Cult, Aerobe/Anaerobe+Susc No growth to date. Narrative: Bacterial Culture: Placed in Bactec aerobic and Bactec anaerobic bottles Bacteria Cult, Aerobe / Anaerobe+Susc [[id number]] Collected: 12/30/21 1405 Lab Status: Preliminary result Specimen: Synovial Fluid, Left Shoulder Updated: 12/31/21 1601 Bacteria Cult, Aerobe/Anaerobe+Susc No growth to date. Narrative: Bacterial Culture: Placed in Bactec aerobic and Bactec anaerobic bottles Bacteria Cult, Aerobe / Anaerobe+Susc [[id number]] Collected: 12/30/21 1404 Lab Status: Preliminary result Specimen: Shoulder, Left Updated: 12/31/21 1601 Bacteria Cult, Aerobe/Anaerobe+Susc No growth to date. Narrative: Bacterial Culture: Placed in Bactec aerobic and Bactec anaerobic bottles Bacteria Cult, Aerobe / Anaerobe+Susc [[id number]] Collected: 12/30/21 1403 Lab Status: Preliminary result Specimen: Shoulder, Left Updated: 12/31/21 1601 Bacteria Cult, Aerobe/Anaerobe+Susc No growth to date. Narrative: Bacterial Culture: Placed in Bactec aerobic and Bactec anaerobic bottles Bacteria Cult, Aerobe / Anaerobe+Susc [[id number]] Collected: 12/30/21 1403 Lab Status: Preliminary result Specimen: Shoulder, Left Updated: 12/31/21 1601 Bacteria Cult, Aerobe/Anaerobe+Susc No growth to date. Narrative: Bacterial Culture: Placed in Bactec aerobic and Bactec anaerobic bottles SARS Coronavirus 2, Molecular Detection, PCR, Varies Asymptomatic [[id number]] Collected: 12/29/21 1111 Lab Status: Final result [...] ----ADDITIONAL INFORMATION---- This RT-PCR test using the PeopleLinx SARS-CoV-2 Assay ( bettermarks.) performed on the PeopleLinx Two Module System has received Emergency Use Authorization (EUA) by the U.S. Food and Drug Administration, and is modified from the database architect's instructions with a bridging study. Performance characteristics were verified by [facility] in a manner consistent with CLIA requirements. Visit the CDC website: https://www.cdc.gov/coronavirus/ for the most recent guidelines on Coronavirus testing. 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 Primary service to follow labs while patient is hospitalized. [place] pharmacist to adjust dosing after dismissal 4. [...] off at this time. Please page [facility] service pager at [phone] with any questions. ?? Jose Guadalupe Nixon [...] - Date/Time Bacteria Cult, Aerobe / Anaerobe+Susc [[id number]] Collected: 12/30/21 1411 Lab Status: In process Specimen: Shoulder, Left Updated: 12/30/21 1540 Narrative: Bacterial Culture: Placed in Bactec aerobic and Bactec anaerobic bottles Bacteria Cult, Aerobe / Anaerobe+Susc [[id number]] Collected: 12/30/21 1405 Lab Status: In process Specimen: Synovial Fluid, Left Shoulder Updated: 12/30/21 1519 Narrative: Bacterial Culture: Placed in Bactec aerobic and Bactec anaerobic bottles Bacteria Cult, Aerobe / Anaerobe+Susc [[id number]] Collected: 12/30/21 1404 Lab Status: In process Specimen: Shoulder, Left Updated: 12/30/21 1536 Narrative: Bacterial Culture: Placed in Bactec aerobic and Bactec anaerobic bottles Bacteria Cult, Aerobe / Anaerobe+Susc [[id number]] Collected: 12/30/21 1403 Lab Status: In process Specimen: Shoulder, Left Updated: 12/30/21 1533 Narrative: Bacterial Culture: Placed in Bactec aerobic and Bactec anaerobic bottles Bacteria Cult, Aerobe / Anaerobe+Susc [[id number]] Collected: 12/30/21 1403 Lab Status: In process Specimen: Shoulder, Left Updated: 12/30/21 1538 Narrative: Bacterial Culture: Placed in Bactec aerobic and Bactec anaerobic bottles SARS Coronavirus 2, Molecular Detection, PCR, Varies Asymptomatic [[id number]] Collected: 12/29/21 1111 Lab Status: Final result [...] ----ADDITIONAL INFORMATION---- This RT-PCR test using the PeopleLinx SARS-CoV-2 Assay ( bettermarks.) performed on the PeopleLinx Two Module System has received Emergency Use Authorization (EUA) by the U.S. Food and Drug Administration, and is modified from the database architect's instructions with a bridging study. Performance characteristics were verified by [facility] in a manner consistent with CLIA requirements. Visit the CDC website: https://www.cdc.gov/coronavirus/ for the most recent guidelines on Coronavirus testing. Fact Sheet for Healthcare Providers: https://www.fda.gov/media/830439/download Fact Sheet for Patients: https://www.fda.gov/media/497333/download ASSESSMENT / PLAN IMPRESSION/REPORT/PLAN #1 Status post [...] 6 am, please page [facility] at [facility] [phone] Trey Phan R.N. - 12/31/2021 7:34 AM [...] - Date/Time Bacteria Cult, Aerobe / Anaerobe+Susc [[id number]] Collected: 12/30/21 1411 Lab Status: In process Specimen: Shoulder, Left Updated: 12/30/21 1540 Narrative: Bacterial Culture: Placed in Bactec aerobic and Bactec anaerobic bottles Bacteria Cult, Aerobe / Anaerobe+Susc [[id number]] Collected: 12/30/21 1405 Lab Status: In process Specimen: Synovial Fluid, Left Shoulder Updated: 12/30/21 1519 Narrative: Bacterial Culture: Placed in Bactec aerobic and Bactec anaerobic bottles Bacteria Cult, Aerobe / Anaerobe+Susc [[id number]] Collected: 12/30/21 1404 Lab Status: In process Specimen: Shoulder, Left Updated: 12/30/21 1536 Narrative: Bacterial Culture: Placed in Bactec aerobic and Bactec anaerobic bottles Bacteria Cult, Aerobe / Anaerobe+Susc [[id number]] Collected: 12/30/21 1403 Lab Status: In process Specimen: Shoulder, Left Updated: 12/30/21 1533 Narrative: Bacterial Culture: Placed in Bactec aerobic and Bactec anaerobic bottles Bacteria Cult, Aerobe / Anaerobe+Susc [[id number]] Collected: 12/30/21 1403 Lab Status: In process Specimen: Shoulder, Left Updated: 12/30/21 1538 Narrative: Bacterial Culture: Placed in Bactec aerobic and Bactec anaerobic bottles SARS Coronavirus 2, Molecular Detection, PCR, Varies Asymptomatic [[id number]] Collected: 12/29/21 1111 Lab Status: Final result [...] ----ADDITIONAL INFORMATION---- This RT-PCR test using the PeopleLinx SARS-CoV-2 Assay ( bettermarks.) performed on the PeopleLinx Two Module System has received Emergency Use Authorization (EUA) by the U.S. Food and Drug Administration, and is modified from the database architect's instructions with a bridging study. Performance characteristics were verified by [facility] in a manner consistent with CLIA requirements. Visit the CDC website: https://www.cdc.gov/coronavirus/ for the most recent guidelines on Coronavirus testing. Fact Sheet for Healthcare Providers: https://www.fda.gov/media/097132/download Fact Sheet for Patients: https://www.fda.gov/media/085777/download ASSESSMENT / PLAN IMPRESSION/REPORT/PLAN #1 Status post [...] Jey Matos DO Shoulder & Elbow Fellow [facility] Orthopaedic Surgery For any questions or concerns from 6 am until 6 pm, please page Jam service For urgent matters from 6 pm until 6 am, please page Arthur Smallwood at [facility] [phone] OR BUSINESS DEVELOPMENT ANALYST Trey Rdz R.N. - 12/30/2021 4:39 PM [...] Care Plan:continue current management per plan/IPS protocol OR BUSINESS DEVELOPMENT ANALYST Feli Viveros, PharmBrittonDBritton, R.Ph. - 12/30/2021 11:33 [...] home. She is registered with the state [facility] for medical cannabis and she gets her meds from a [place] dispensary. She was told to leave her [...] Take 150 mg by mouth every morning. rnpujrgoox-zgqxtflwgzptp-oocp (ESGIC) 50-325-40 mg per tablet Past Week [...] by mouth 2 (two) times a day. OR BUSINESS DEVELOPMENT ANALYST documented in this encounter Procedure Notes [...] to release the adhesive from the skin. http://CityVoter/products/secureportiv OR BUSINESS DEVELOPMENT ANALYST documented in this encounter Consult Notes [...] (HCC) ??? Nicotine Dependence Unspecified ??? Other Charge Accounts Audit Clerk Current Drug Therapy ??? 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 ABDOMINOPLASTY ??? ARTHROPLASTY - RESECTION SHOULDER Left 12/30/2021 Procedure: ARTHROPLASTY RESECTION SHOULDER.; Surgeon: Cyrus Polk M.D.; Location: [facility] OR ??? BACK SURGERY 1998 lumbar [...] assistance ADL Assistance Comments: Gets help from SUBEDITOR for her bath/shower and for her meals IADL/Homemaking Assistance: Required assistance IADL/Homemaking Assistance Comments: Gets help for housecleaning Driving: Independent Occupational Role: On disability Prior Mobility/Functional Transfers Level of Brule: Modified independent Gait Devices/Wheelchair Used: Cane Gait [...] session with call light in reach and SUBEDITOR present, all needs metand questions answered. Contact monitoring: PPE used during therapy: Therapist was wearing the following PPE throughout entire session: surgicalmask and eye protection Patient was wearing a mask during therapy session: yes, when out of room Outcome Measures [facility] Inpatient Short Form: -[facility] Basic Mobility (V.2) How [...] 3-5 steps with a railing?: A Lot -[facility] Basic Mobility (V.2) Raw Score: 17 -[facility] Basic Mobility (V.2) Standardized Score: 39.67 Interpretation: Clinicians answer the -[facility] [...] Total Treatment Time (min): 36 min Ruth Gonzaelz P.T., D.P.T. OR BUSINESS DEVELOPMENT ANALYST Thao You L.I.C.SBrenton, M.S.W. - 12/31/2021 2:04 PM CSTAssociated Order(s): IP CONSULT TO CARE MANAGEMENT; IP CONSULT TO CARE MANAGEMENT; IP CONSULT TO CARE MANAGEMENT Psychosocial Assessment SUBJECTIVE DEMOGRAPHIC INFORMATION Person(s) present during interview: Patient Primary care clinic and provider: [facility] Primary Language: Chilean Legal Information: Legal decision maker for self [...] / Household Status: Patient resides alone in [place], [place]. She lives in a two bedroom apartment. Patient has four adultchildren two of whom live in [place]. Patient son Rafal lives next door to patient. Support Systems: Family members, Friends/neighbors. We have not received permission to contact them. Primary caregiver: Self Accompanied by/Relationship: None Support System: Family members, Friends/neighbors Spirituality / Moravian / Culture: , None History: No Education: High school Employment: Disabled Psychosocial Risk Factors impacting the patient: Resides alone, mental health issues Abuse, Neglect, Maltreatment, Trauma: Current: None reported. Past: None reported. ENVIRONMENTAL SUPPORTS Current Living Situation: Private residence Patient's Home Environment: Resides in a two bedroom apartment on the [address] [facility] Care Facility Name (if applicable): NA Anticipated [...] Behavior: Oriented Communication: Reads, writes and speaks Chilean It is anticipated that the patient will need assistance with .Dressing,bathing, meal prep, housekeeping, shopping ASSISTIVE DEVICES Patient has the following equipment: Eyeglasses, Dentures upper, Dentures lower, cane, walker Patient anticipates potentially needing the following additional equipment: None Transportation needs: Independent to drive, support from family and friends SERVICES REQUESTED Infusion therapy POT PUNCHER Formal and Informal Resources: Patient receives home health aid services three times per week and long-term visit one time every two weeks through [facility]. FINANCES/INSURANCE Primary insurance: MEDICARE A AND B Secondary insurance: MEDICA ADVANCE DIRECTIVES Advance Directive: Patient does not have advance directive, does not want information DISCHARGE PLANNING Patient is planning on returning home upon her discharge. She currently receives home health aid services and long-term through [facility]. Patient also has support from a [...] good support group consisting of family, friends [facility]. INTERVENTIONS ?? Psychosocial assessment ?? Rapport building ?? Education on coping with chronic pain. PLAN ?? Social work will continue to follow for discharge planning and support. ?? Social work did speak with Pat at [facility] to confirm home health services. ?? Social work will work on infusion therapy referrals as well as home health/outpatient picc site care and labs. Anticipated barriers to the transition of care/plan: None Joe Ervin, M.S.W. 12/31/2021 OR BUSINESS DEVELOPMENT ANALYST Jose Guadalupe Nixon M.D. - 12/31/2021 7:31 AM CSTAssociated Order(s): IP CONSULT TO INFECTIOUS DISEASES Infectious Diseases Orthopedic Surgery [facility] Consulting Service Consult Note SUBJECTIVE REASON FOR [...] OSH AST. She presented to [facility] (unclear if on antibiotics) for further evaluation given persistent L shoulder pain 08/2021 prompting aspiration (09/25/21) which revealed elevated TNC (56394) with 81% PMNs with cultures positive for1 [...] patient was subsequently admitted to [facility] for further management. Intraoperative cultures and [...] - Date/Time Bacteria Cult, Aerobe / Anaerobe+Susc [[id number]] Collected: 12/30/21 1411 Lab Status: In process Specimen: Shoulder, Left Updated: 12/30/21 1540 Narrative: Bacterial Culture: Placed in Bactec aerobic and Bactec anaerobic bottles Bacteria Cult, Aerobe / Anaerobe+Susc [[id number]] Collected: 12/30/21 1405 Lab Status: In process Specimen: Synovial Fluid, Left Shoulder Updated: 12/30/21 1519 Narrative: Bacterial Culture: Placed in Bactec aerobic and Bactec anaerobic bottles Bacteria Cult, Aerobe / Anaerobe+Susc [[id number]] Collected: 12/30/21 1404 Lab Status: In process Specimen: Shoulder, Left Updated: 12/30/21 1536 Narrative: Bacterial Culture: Placed in Bactec aerobic and Bactec anaerobic bottles Bacteria Cult, Aerobe / Anaerobe+Susc [[id number]] Collected: 12/30/21 1403 Lab Status: In process Specimen: Shoulder, Left Updated: 12/30/21 1533 Narrative: Bacterial Culture: Placed in Bactec aerobic and Bactec anaerobic bottles Bacteria Cult, Aerobe / Anaerobe+Susc [[id number]] Collected: 12/30/21 1403 Lab Status: In process Specimen: Shoulder, Left Updated: 12/30/21 1538 Narrative: Bacterial Culture: Placed in Bactec aerobic and Bactec anaerobic bottles SARS Coronavirus 2, Molecular Detection, PCR, Varies Asymptomatic [[id number]] Collected: 12/29/21 1111 Lab Status: Final result [...] ----ADDITIONAL INFORMATION---- This RT-PCR test using the PeopleLinx SARS-CoV-2 Assay ( bettermarks.) performed on the PeopleLinx Two Module System has received Emergency Use Authorization (EUA) by the U.S. Food and Drug Administration, and is modified from the database architect's instructions with a bridging study. Performance characteristics were verified by [facility] in a manner consistent with CLIA requirements. Visit the CDC website: https://www.cdc.gov/coronavirus/ for the most recent guidelines on Coronavirus testing. 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 Please page the [facility] service pager at [phone] with questions. Thank you for the consultation. Jose Guadalupe Nixon M.D. OR BUSINESS DEVELOPMENT ANALYST Associated attestation - Gucci Salvador M.D. - 12/31/2021 6:07 PM SENIOR BUSINESS DEVELOPMENT ANALYST DEMOGRAPHIC INFORMATION [facility] Number:[phone] Patient Name: Angie Mosquera Date: 12/31/21 [...] Oxycodone. Oxycodone filled here at [facility] pharmacy. Patient going home with an interscalene block OnQ pump. Transportation provided by her son. OR BUSINESS DEVELOPMENT ANALYST Fanny Sifuentes R.N. - 12/31/2021 11:00 [...] Nasal mucous membranes remain intact Outcome: Progressing OR BUSINESS DEVELOPMENT ANALYST Ezequiel Hernandez R.N. - 12/30/2021 10:27 [...] staff assistance to bathroom. Navin Hernandez R.N. OR BUSINESS DEVELOPMENT ANALYST documented in this encounter OR Notes Op Note - Cyrus Polk M.D. - 12/30/2021 2:50 PM CST STAFF: Cyrus Polk M.D. RESIDENT: Dario Carrera M.D. PRE-OPERATIVE DIAGNOSIS Left infected reverse arthroplasty. POST-OPERATIVE DIAGNOSIS Left infected reverse arthroplasty. A plumber's assistant was necessary for one or more [...] Cyrus Polk M.D. CT CT Job ID: [id number] OR BUSINESS DEVELOPMENT ANALYST documented in this encounter Miscellaneous Notes [...] and pain is controlled on oral medications. OR BUSINESS DEVELOPMENT ANALYST documented in this encounter Plan of Treatment Scheduled Referrals Name Type Priority Associated Diagnoses Order S [facility] Outpatient Referral Routine Direct Infection Of Ordered: Health Referral Left Shoulder In 01/01/20 22 Infectious And Parasitic Diseases Classified Elsewhere (HCC) documented as of this encounter Procedures Procedure Name Priority Date/Time Associated Comments Diagnosis PLACE PERIPHERALLY Routine 01/01/2022 12:11 Resul ts for this INSERTED CENTRAL PM SENIOR BUSINESS DEVELOPMENT ANALYST procedure a re in CATHETER (PICC) the results section. REMOTE OXIMETRY Routine 12/31/2021 5:23 MONITORING CONT. PM SENIOR BUSINESS DEVELOPMENT ANALYST REMOTE OXIMETRY Routine 12/31/2021 5:23 MONITORING CONT. PM SENIOR BUSINESS DEVELOPMENT ANALYST BACTERIA / MANDI Routine 12/31/2021 4:04 Result s for this CULTURE, BLOOD PM SENIOR BUSINESS DEVELOPMENT ANALYST procedure are in the results section. BACTERIA / MANDI Routine 12/31/2021 3:52 Result s for this CULTURE, BLOOD PM SENIOR BUSINESS DEVELOPMENT ANALYST procedure are in the results section. ADULT OXYGEN THERAPY Routine 12/31/2021 8:01 AM SENIOR BUSINESS DEVELOPMENT ANALYST CBC WITH Routine 12/31/2021 4:25 Results for this DIFFERENTIAL, B AM SENIOR BUSINESS DEVELOPMENT ANALYST procedure ar e in the results section. BASIC METABOLIC Routine 12/31/2021 4:25 Results f or this PANEL, S/P AM SENIOR BUSINESS DEVELOPMENT ANALYST procedure are i n the results section. ADULT OXYGEN THERAPY Routine 12/30/2021 8:01 PM SENIOR BUSINESS DEVELOPMENT ANALYST ADULT OXYGEN THERAPY Routine 12/30/2021 5:12 PM SENIOR BUSINESS DEVELOPMENT ANALYST ADULT OXYGEN THERAPY Routine 12/30/2021 5:12 PM SENIOR BUSINESS DEVELOPMENT ANALYST ADULT OXYGEN THERAPY Routine 12/30/2021 3:46 PM SENIOR BUSINESS DEVELOPMENT ANALYST ADULT OXYGEN THERAPY Routine 12/30/2021 3:46 PM SENIOR BUSINESS DEVELOPMENT ANALYST DX SHOULDER LEFT 1 RAD - Timed (for 12/30/2021 3:41 Re sults for this VIEW specific PM SENIOR BUSINESS DEVELOPMENT ANALYST procedure are i n dates/times) the results section. SURGICAL PATHOLOGY, Routine 12/30/2021 2:15 Shoulder Joint Res ults for this FROZEN LAB PM SENIOR BUSINESS DEVELOPMENT ANALYST Disorder Left procedure are in the results section. BACTERIA CULT, Routine 12/30/2021 2:11 Results fo r this AEROBE/ANAEROBE+SUSC PM SENIOR BUSINESS DEVELOPMENT ANALYST procedu re are in the results section. BACTERIA CULT, Routine 12/30/2021 2:05 Results fo r this AEROBE/ANAEROBE+SUSC PM SENIOR BUSINESS DEVELOPMENT ANALYST procedu re are in the results section. BACTERIA CULT, Routine 12/30/2021 2:04 Results fo r this AEROBE/ANAEROBE+SUSC PM SENIOR BUSINESS DEVELOPMENT ANALYST procedu re are in the results section. BACTERIA CULT, Routine 12/30/2021 2:03 Results fo r this AEROBE/ANAEROBE+SUSC PM SENIOR BUSINESS DEVELOPMENT ANALYST procedu re are in the results section. BACTERIA CULT, Routine 12/30/2021 2:03 Results fo r this AEROBE/ANAEROBE+SUSC PM SENIOR BUSINESS DEVELOPMENT ANALYST procedu re are in the results section. ARTHROPLASTY 12/30/2021 12:34 Shoulder Joint RESECTION SHOULDER PM SENIOR BUSINESS DEVELOPMENT ANALYST Disorder Left documented in this encounter Results Place peripherally inserted central catheter (PICC) (01/01/2022 12:11 PM SENIOR BUSINESS DEVELOPMENT ANALYST) Narrative MMODAL - 01/01/2022 12:11 PM SENIOR BUSINESS DEVELOPMENT ANALYST Soraida Dick R.N. ? 01/01/2022 12:13 [...] to release the adhesive from the skin. [email or web address] Dario Carrera M.D. PROCEDURE/MINOR SURGICAL ORD ERABLES Performing Organization Address City/[facility]/ZIP Code Phon e Number MMODAL MMODAL NA Bacteria / Mandi Culture, Blood #2 (12/31/2021 4:04 PM SENIOR BUSINESS DEVELOPMENT ANALYST) [facility] Method Time Signature Bacteria/Valerie No growth 01/05/2022 DTL da Culture, after 5 5:02 PM SENIOR BUSINESS DEVELOPMENT ANALYST Blood days of incubation. Specimen (Source) Anatomical Collection Method Collection Time Re ceived Time Location / / Volume Laterality Blood (Blood, 12/31/2021 4:04 12/31/2021 4:51 Peripheral Draw) PM SENIOR BUSINESS DEVELOPMENT ANALYST PM SENIOR BUSINESS DEVELOPMENT ANALYST Comment: Specimen Source Site: Blood Narrative [facility] - 01/05/2022 5:02 PM SENIOR BUSINESS DEVELOPMENT ANALYST Received Bactec aerobic and Bactec anaer obic bottles Dario Carrera M.D. LAB MICROBIOLOGY - GENERAL O RDERASARAH Performing Organization Address [facility]/ZIP [facility] Phon e Number [facility] [id number] [place] [address] Bacteria / Mandi Culture, Blood #1 (12/31/2021 3:52 PM SENIOR BUSINESS DEVELOPMENT ANALYST) [facility] Method Time Signature Bacteria/Valerie No growth 01/05/2022 DTL da Culture, after 5 5:02 PM SENIOR BUSINESS DEVELOPMENT ANALYST Blood days of incubation. Specimen (Source) Anatomical Collection Method Collection Time Re ceived Time Location / / Volume Laterality Blood (Blood, 12/31/2021 3:52 12/31/2021 4:50 Peripheral Draw) PM SENIOR BUSINESS DEVELOPMENT ANALYST PM SENIOR BUSINESS DEVELOPMENT ANALYST Comment: Specimen Source Site: Blood Narrative [facility] - 01/05/2022 5:02 PM SENIOR BUSINESS DEVELOPMENT ANALYST Received Bactec aerobic and Bactec anaer obic bottles Dario Carrera M.D. LAB MICROBIOLOGY - GENERAL O RDERABLES Performing Organization Address City/[facility]/ZIP Code Phon e Number [facility] - [address] [place], [place] [address] [facility] [place] [address] Laboratories-[facility] [address] (ABNORMAL) CBC with Differential, Blood (12/31/2021 4:25 AM SENIOR BUSINESS DEVELOPMENT ANALYST) [facility] gist Method Time Signature Hemoglobin 8.9 (L) 11.6 - 12/31/2021 DTL 15.0 g/dL 5:15 AM SENIOR BUSINESS DEVELOPMENT ANALYST Hematocrit 27.3 (L) 35.5 - 12/31/2021 DTL 44.9 % 5:15 AM SENIOR BUSINESS DEVELOPMENT ANALYST Erythrocytes 3.26 (L) 3.92 - 12/31/2021 DTL 5.13 5:15 AM SENIOR BUSINESS DEVELOPMENT ANALYST x10(12)/L MCV 83.7 78.2 - 12/31/2021 DTL 97.9 fL 5:15 AM SENIOR BUSINESS DEVELOPMENT ANALYST RBC Distrib Width 19.6 (H) 12.2 - 12/31/2021 DTL 16.1 % 5:15 AM SENIOR BUSINESS DEVELOPMENT ANALYST Platelet Count 274 157 - 371 12/31/2021 DTL x10(9)/L 5:15 AM SENIOR BUSINESS DEVELOPMENT ANALYST Leukocytes 6.6 3.4 - 9.6 12/31/2021 DTL x10(9)/L 5:15 AM SENIOR BUSINESS DEVELOPMENT ANALYST Neutrophils 4.91 1.56 - 12/31/2021 DTL 6.45 5:15 AM SENIOR BUSINESS DEVELOPMENT ANALYST x10(9)/L Lymphocytes 1.10 0.95 - 12/31/2021 DTL 3.07 5:15 AM SENIOR BUSINESS DEVELOPMENT ANALYST x10(9)/L Monocytes 0.61 0.26 - 12/31/2021 DTL 0.81 5:15 AM SENIOR BUSINESS DEVELOPMENT ANALYST x10(9)/L Eosinophils <0.03 0.03 - 12/31/2021 DTL 0.48 5:15 AM SENIOR BUSINESS DEVELOPMENT ANALYST x10(9)/L Basophils <0.03 0.01 - 12/31/2021 DTL 0.08 5:15 AM SENIOR BUSINESS DEVELOPMENT ANALYST x10(9)/L Specimen Anatomical Collection Method Collection Time Receive d Time (Source) Location / / Volume Laterality Blood (Blood, 12/31/2021 4:25 AM 12/31/19 5:04 Venous) SENIOR BUSINESS DEVELOPMENT ANALYST AM SENIOR BUSINESS DEVELOPMENT ANALYST Dario Carrera M.D. LAB BLOOD ADD-ON Performing Organization Address City/State/ZIP Code Phon e Number [facility] - [address] [place], [place] [address] [facility] [place] [address] Laboratories-[facility] 200 [facility] (ABNORMAL) Basic Metabolic Panel (12/31/2021 4:25 AM SENIOR BUSINESS DEVELOPMENT ANALYST) P athologist Signature Potassium, S 4.4 3.6 - 5.2 12/31/2021 DTL mmol/L 5:35 AM SENIOR BUSINESS DEVELOPMENT ANALYST Sodium, S 134 (L) 135 - 145 12/31/2021 DTL mmol/L 5:35 AM SENIOR BUSINESS DEVELOPMENT ANALYST Chloride, S 103 98 - 107 12/31/2021 DTL mmol/L 5:35 AM SENIOR BUSINESS DEVELOPMENT ANALYST Bicarbonate, S 22 22 - 29 12/31/2021 DTL mmol/L 5:35 AM SENIOR BUSINESS DEVELOPMENT ANALYST Anion Gap 9 7 - 15 12/31/2021 DTL 5:35 AM SENIOR BUSINESS DEVELOPMENT ANALYST BUN (Blood Urea 21 6 - 21 12/31/2021 DTL Nitrogen), S mg/dL 5:35 AM SENIOR BUSINESS DEVELOPMENT ANALYST Creatinine 0.74 0.59 - 12/31/2021 DTL 1.04 mg/dL 5:35 AM SENIOR BUSINESS DEVELOPMENT ANALYST eGFR-Non 90 >=60 12/31/2021 DTL Black/ mL/min/BSA 5:35 AM SENIOR BUSINESS DEVELOPMENT ANALYST Syrian Comment: ----ADDITIONAL INFORMATION---- Estimated GFR calculated using the 2009 CKD_EPI creatinine equation. eGFR-Black/ >90 >=60 mL/min/BSA 2021 5:35 AM SENIOR BUSINESS DEVELOPMENT ANALYST DTL Comment: ----ADDITIONAL INFORMATION---- Estimated GFR calculated using the 2009 CKD_EPI creatinine equation. Calcium, Total, S 8.7 8.6 - 10.0 mg/dL 12/31/2021 5:35 AM SENIOR BUSINESS DEVELOPMENT ANALYST DTL Glucose, S 138 70 - 140 mg/dL 12/31/2021 5:35 AM SENIOR BUSINESS DEVELOPMENT ANALYST D TL Specimen Anatomical Collection Method Collection Time Receive d Time (Source) Location / / Volume Laterality Blood (Blood, 12/31/2021 4:25 AM 12/31/19 5:18 Venous) SENIOR BUSINESS DEVELOPMENT ANALYST AM SENIOR BUSINESS DEVELOPMENT ANALYST Dario Carrera M.D. LAB BLOOD ADD-ON Performing Organization Address City/State/ZIP Code Phon e Number [facility] - [address] [place], [place] [address] [place] [address] Laboratories-[facility] [address] DX Shoulder Left 1 View (12/30/2021 3:41 PM SENIOR BUSINESS DEVELOPMENT ANALYST) Anatomical Region Laterality Modality Upper Extremity, Shoulder, Musculoskeletal RST LOS, Left Computed Radiography Musculoskeletal ARZ LOS, Muskuloskeletal FLA LOS Specimen (Source) Anatomical Collection Method Collection Time Re ceived Time Location / / Volume Laterality 12/30/2021 3:54 PM SENIOR BUSINESS DEVELOPMENT ANALYST Impressions 12/30/2021 3:59 PM SENIOR BUSINESS DEVELOPMENT ANALYST Postoperative changes of a left shoulder arthroplasty resection and placement of an antibiotic spacer. Negat lalo for postoperative purposes. Narrative 12/30/2021 3:59 PM SENIOR BUSINESS DEVELOPMENT ANALYST EXAM: ??DX SHOULDER LEFT 1 VIEW Procedure Note Timothy Resendiz M.D. - 12/30/2021Forma tting of this note might be different from the original. EXAM: DX SHOULDER LEFT 1 VIEW IMPRESSION: Postoperative changes of a left shoulder arthroplasty resection and placement of an antibiotic spacer. Negat lalo for postoperative purposes. Dario [facility] Surgical Pathology, Frozen Lab (12/30/2021 2:15 PM SENIOR BUSINESS DEVELOPMENT ANALYST) Component Value Ref Test Analysis Performed At [facility] Range Method Time Signature 01/01/2022 METH 8:22 AM SENIOR BUSINESS DEVELOPMENT ANALYST Participated in Kelly Howard 01/01/2022 METH the D.O.-Pathology 8:22 AM SENIOR BUSINESS DEVELOPMENT ANALYST Interpretation Resident Report Solomon Marcum M.D. 01/01/2022 METH electronically 8:22 AM SENIOR BUSINESS DEVELOPMENT ANALYST signed by I verify that I have examined all relevant slides/materials for the specimen(s) and rendered or confirmed the diagnosis. Frozen A. ??Synovium, left shoulder, excision: ??Synovial tissue 01/01/2022 METH Intraoperative with 8:22 AM SENIOR BUSINESS DEVELOPMENT ANALYST Report acute inflammation (>5 neutrophils/high power field). Signed by Solomon Marcum M.D. 12/31/2021 8:17 AM Gross Description A. ??Received fresh labeled left shoulder is a 1.4 x 0.9 x 01/01/2022 METH 0.4 cm aggregate of red and campbell fibrous tissue, which is 8:22 AM SENIOR BUSINESS DEVELOPMENT ANALYST soft. ??All submitted for frozen and permanent sections. Grossed by Nikki Gallardo. Block Summary A Left shoulder 01/01/2022 METH A1 Left shoulder-frozen 8:22 AM SENIOR BUSINESS DEVELOPMENT ANALYST Interpretation FINAL DIAGNOSIS 01/01/2022 METH 8:22 AM SENIOR BUSINESS DEVELOPMENT ANALYST A. ??Synovium, left shoulder, excision: ??Synovial tissue with acute inflammation (>5 neutrophils/high power field). Specimen (Source) Anatomical Collection Method Collection Time Re ceived Time Location / / Volume Laterality Tissue (Shoulder, 12/30/2021 2:15 PM Left) SENIOR BUSINESS DEVELOPMENT ANALYST Narrative This result has an attachment that is no t available. Cyrus Polk M.D. LAB SURG PATH ORDERABLES Performing Organization Address [facility] Phon e Number [facility] - [address] METH [place], [place] [id number] [place] [address] First [facility] Bacteria Cult, Aerobe / Anaerobe+Susc (12/30/2021 2:11 PM SENIOR BUSINESS DEVELOPMENT ANALYST) [facility] Method Time Signature Bacteria Cult, No growth 01/13/2022 DTL Aerobe/Anaerob after 14 4:02 PM SENIOR BUSINESS DEVELOPMENT ANALYST e+Susc days of incubation. Specimen Anatomical Collection Method Collection Time Receive d Time (Source) Location / / Volume Laterality Shoulder, Left 12/30/2021 2:11 PM 022 3:38 SENIOR BUSINESS DEVELOPMENT ANALYST PM SENIOR BUSINESS DEVELOPMENT ANALYST Comment: Specimen Source Site: Tissue #4 Narrative [facility] - [facility] - 01/13/2022 4:02 PM SENIOR BUSINESS DEVELOPMENT ANALYST Bacterial Culture: Placed in Bactec aero bic and Bactec anaerobic bottles Cyrus Polk M.D. LAB MICROBIOLOGY - GENERAL O RDERABLES Performing Organization Address City/[facility] Phon e Number [facility] - [address] [place], [place] [address] [facility] DTL [place], [place] [id number] [place] [address] First [facility] (ABNORMAL) Bacteria Cult, Aerobe / Anaerobe+Susc (12/30/2021 2:05 PM SENIOR BUSINESS DEVELOPMENT ANALYST) Component Value Ref Test Analysis [facility] Range Method Time Signature Bacteria STAPHYLOCOCCUS EPIDERMIDIS 01/11/2022 DT L Cult, Growth after 4 days 7:55 AM SENIOR BUSINESS DEVELOPMENT ANALYST Aerobe/Anaero (A) be+Susc Comment: Semi-Urgent Result. Semi-Urgent This is a semi-urgent result [facility] - (ORTIZ) [facility] S Specimen Anatomical Collection Method Collection Time Receive d Time (Source) Location / / Volume Laterality Synovial Fluid, 12/30/2021 2:05 PM 2021 3:17 Left Shoulder SENIOR BUSINESS DEVELOPMENT ANALYST PM SENIOR BUSINESS DEVELOPMENT ANALYST Comment: Specimen Source Site: Fluid Narrative [facility] - [facility] - 01/11/2022 7:55 AM SENIOR BUSINESS DEVELOPMENT ANALYST Bacterial Culture: Placed in Bactec aero [...] [facility] - [address] [place] [address] [facility] [place] [address] [facility] [address] [facility] Bacteria Cult, Aerobe / Anaerobe+Susc (12/30/2021 2:04 PM SENIOR BUSINESS DEVELOPMENT ANALYST) [facility] Method Time Signature Bacteria Cult, No growth 01/13/2022 DTL Aerobe/Anaerob after 14 4:02 PM SENIOR BUSINESS DEVELOPMENT ANALYST e+Susc days of incubation. Specimen Anatomical Collection Method Collection Time Receive d Time (Source) Location / / Volume Laterality Shoulder, Left 12/30/2021 2:04 PM 022 3:34 SENIOR BUSINESS DEVELOPMENT ANALYST PM SENIOR BUSINESS DEVELOPMENT ANALYST Comment: Specimen Source Site: Tissue #3 [facility] - 01/13/2022 4:02 PM SENIOR BUSINESS DEVELOPMENT ANALYST Bacterial Culture: Placed in Bactec aero bic and Bactec anaerobic bottles Cyrus Polk M.D. LAB MICROBIOLOGY - GENERAL O MARY Performing Organization Address City/[facility] Phon e Number [facility] - [address] [place], [place] [address] [facility] [address] Bacteria Cult, Aerobe / Anaerobe+Susc (12/30/2021 2:03 PM SENIOR BUSINESS DEVELOPMENT ANALYST) [facility] Method Time Signature Bacteria Cult, No growth 01/13/2022 DTL Aerobe/Anaerob after 14 4:02 PM SENIOR BUSINESS DEVELOPMENT ANALYST e+Susc days of incubation. Specimen Anatomical Collection Method Collection Time Receive d Time (Source) Location / / Volume Laterality Shoulder, Left 12/30/2021 2:03 PM 022 3:37 SENIOR BUSINESS DEVELOPMENT ANALYST PM SENIOR BUSINESS DEVELOPMENT ANALYST Comment: Specimen Source Site: Tissue #2 [facility] - 01/13/2022 4:02 PM SENIOR BUSINESS DEVELOPMENT ANALYST Bacterial Culture: Placed in Bactec aero bic and Bactec anaerobic bottles Cyrus Polk M.D. LAB MICROBIOLOGY - GENERAL O MARY Performing Organization Address City/State/[facility] Code Phon e Number [facility] - [address] [place], [place] [address] [facility] [place], [place] [id number] [place] [address] Bacteria Cult, Aerobe / Anaerobe+Susc (12/30/2021 2:03 PM SENIOR BUSINESS DEVELOPMENT ANALYST) [facility] Method Time Signature Bacteria Cult, No growth 01/13/2022 DTL Aerobe/Anaerob after 14 4:02 PM SENIOR BUSINESS DEVELOPMENT ANALYST e+Susc days of incubation. Specimen Anatomical Collection Method Collection Time Receive d Time (Source) Location / / Volume Laterality Shoulder, Left 12/30/2021 2:03 PM 022 3:31 SENIOR BUSINESS DEVELOPMENT ANALYST PM SENIOR BUSINESS DEVELOPMENT ANALYST Comment: Specimen Source Site: Tissue #[address] [facility] - [facility] - 01/13/2022 4:02 PM SENIOR BUSINESS DEVELOPMENT ANALYST Bacterial Culture: Placed in Bactec aero bic and Bactec anaerobic bottles Cyrus Polk M.D. LAB MICROBIOLOGY - GENERAL O RDERABLES Performing Organization Address City/State/ZIP Code Phon e Number [facility] - [address] [place], [place] [address] [facility] [place] [address] Laboratories-[facility] [address] documented in this [...] tablet 1,000 mg Given 12/30/2021 12:02 PM SENIOR BUSINESS DEVELOPMENT ANALYST 1,00 0 mg (TYLENOL) 1,000 mg, oral, Once, On Tue12/30/21 at 1215, For 1 dose, Pre-Op acetaminophen tablet 1,000 mg (TYLENOL) Given 01/01/2022 11:36 AM SENIOR BUSINESS DEVELOPMENT ANALYST 1,000 mg 1,000 mg, oral, Every 6 hours, First dose on Tue12/30/21 at 1800 Given 01/01/2022 6:28 AM SENIOR BUSINESS DEVELOPMENT ANALYST 1,000 mg Given 12/31/2021 11:51 PM SENIOR BUSINESS DEVELOPMENT ANALYST 1,000 mg albuterol nebulizer solution 2.5 mg Given 12/31/2021 4:44 PM SENIOR BUSINESS DEVELOPMENT ANALYST 2.5 mg 2.5 mg, nebulization, Every 6 hours PRN, wheezing, Starting on Tue12/30/21 at 1711, Albuterol nebs were interchanged for albuterol/levalbuterol MDI (same frequency) atorvastatin tablet 80 mg (LIPITOR) Given 12/31/2021 8:57 PM SENIOR BUSINESS DEVELOPMENT ANALYST 80 mg 80 mg, oral, Daily at bedtime, First dose on Tue12/30/21 at 2100 Given 12/30/2021 9:55 PM SENIOR BUSINESS DEVELOPMENT ANALYST 80 mg benzonatate capsule 100 mg (TESSALON PER LES) Given 01/01/2022 3:10 AM SENIOR BUSINESS DEVELOPMENT ANALYST 100 mg 100 mg, oral, 3 times daily PRN, cough, Starting on Tue12/31/21 at 1702, Swallow whole. Do NOT crush, chew or open capsule. Given 12/31/2021 5:39 PM SENIOR BUSINESS DEVELOPMENT ANALYST 100 mg bupivacaine PF 0.2 % 550 mL in NaCl New Bag 01/01/2022 3:15 PM SENIOR BUSINESS DEVELOPMENT ANALYST 6 mL/hr 6 mL/hr 0.9% On-Q pain pump (CB004) 6 mL/hr, nerve catheter, Continuous, Starting on Tue01/01/22 at 1500, PACU & Post-Op, Location: Nerve Catheter Location, Nerve Catheter Location: Interscalene, Device: On-Q Pump bupivacaine PF 0.2 % in Rate/Dose Verify 01/01/2022 1:00 AM SENIOR BUSINESS DEVELOPMENT ANALYST 6 mL/ hr 6 mL/hr NaCl 0.9% 341 mL infusion (MARCAINE) 6 mL/hr, nerve catheter, Continuous, Starting on Tue12/30/21 at 1600, PACU & Post-Op, Nerve Catheter Location: Interscalene, Device: Hospital Infusion Pump Rate/Dose Verify 12/31/2021 12:11 AM SENIOR BUSINESS DEVELOPMENT ANALYST 6 mL/hr 6 mL/hr New Bag 12/30/2021 3:49 PM SENIOR BUSINESS DEVELOPMENT ANALYST 6 mL/hr 6 mL/hr buPROPion XL 24 hr tablet 150 mg (WELLBUTRIN Given 02/2022 8:35 AM SENIOR BUSINESS DEVELOPMENT ANALYST 150 mg XL) 150 mg, oral, Every morning, First dose on Tue12/31/21 at 0900, Swallow whole. Do NOT crush, chew, or split tablet. Given 12/31/2021 8:16 AM SENIOR BUSINESS DEVELOPMENT ANALYST 150 mg calcium carbonate chewable tablet Given 12/31/2021 11: 46 PM SENIOR BUSINESS DEVELOPMENT ANALYST 400 mg of calcium 400 mg of calcium (TUMS) 400 mg of calcium, oral, Every 2 hour PRN, indigestion, Starting on Tue12/30/21 at 1711, Doses listed are in mg of elemental calcium. Take with food. 500 mg calcium carbonate contains 200 mg of elemental calcium. Given 12/31/2021 9:15 PM SENIOR BUSINESS DEVELOPMENT ANALYST 400 mg of calcium carboxymethylcellulose 0.5 % ophthalmic Given 01/01/2022 1:15 AM SENIOR BUSINESS DEVELOPMENT ANALYST 2 drops solution 2 drop (REFRESH PLUS) 2 drop, both eyes, 4 times daily PRN, dry eyes, Starting on Tue12/30/21 at 1711 Given 12/31/2021 12:31 PM SENIOR BUSINESS DEVELOPMENT ANALYST 2 drops Given 12/31/2021 12:23 AM SENIOR BUSINESS DEVELOPMENT ANALYST 2 drops ceFAZolin in dextrose (iso-os) IVPB 2 New Bag 01/01/2022 6:27 AM SENIOR BUSINESS DEVELOPMENT ANALYST 2 g 200 mL/hr g (ANCEF) 2 g, intravenous, at 200 mL/hr, Administer over 30 Minutes, Every 8 hours, First dose on Tue12/30/21 at 2200, Start within 8 hours of last IV dose., Drug Monitoring Program: Pharmacist to adjust medication dosing based on indication and drug clearance factors., Indications: Bone and/or joint infection New Bag 12/31/2021 10:32 PM SENIOR BUSINESS DEVELOPMENT ANALYST 2 g 200 mL/hr New Bag 12/31/2021 2:21 PM SENIOR BUSINESS DEVELOPMENT ANALYST 2 g 200 mL/hr cefTRIAXone in dextrose (iso-osm) IVPB New Bag 01/01/2022 2:38 PM SENIOR BUSINESS DEVELOPMENT ANALYST 2 g 200 mL/hr 2 g (ROCEPHIN) 2 g, intravenous, at 200 mL/hr, Administer over 15 Minutes, Daily before lunch, First dose on Tue01/01/22 at 1345, Drug Monitoring Program: Pharmacist to adjust medication dosing based on indication and drug clearance factors., Indications: Bone and/or joint infection cetirizine tablet 10 mg (ZyrTEC) Given 01/01/2022 8:35 AM SENIOR BUSINESS DEVELOPMENT ANALYST 10 mg 10 mg, oral, 2 times daily, First dose on Tue12/30/21 at 2100, Drug Monitoring Program: Pharmacist to adjust medication dosing based on indication and drug clearance factors. Given 12/31/2021 8:57 PM SENIOR BUSINESS DEVELOPMENT ANALYST 10 mg Given 12/31/2021 8:16 AM SENIOR BUSINESS DEVELOPMENT ANALYST 10 mg cholecalciferol (vitamin D3) tablet 25 m cg Given 01/01/2022 8:35 AM SENIOR BUSINESS DEVELOPMENT ANALYST 25 mcg 25 mcg, oral, Daily, First dose on Tue12/31/21 at 0900, cholecalciferol (vitamin D3) orderable was interchanged for cholecalciferol (vitamin D3) tablet/capsule Given 12/31/2021 8:16 AM SENIOR BUSINESS DEVELOPMENT ANALYST 25 mcg D5W infusion 10-250 mL/hr, [...] 5 mg (VALIUM) Given 12/31/2021 12:31 PM SENIOR BUSINESS DEVELOPMENT ANALYST 5 mg 5 mg, oral, 4 times daily PRN, muscle spasms, Starting on Tue12/30/21 at 2243 Given 12/31/2021 1:59 AM SENIOR BUSINESS DEVELOPMENT ANALYST 5 mg diphenhydrAMINE capsule 25 mg (BENADRYL) 25 mg, oral, Daily PRN, itching, Starting on Tue 2 at 0854 diphenhydrAMINE capsule 75 mg (BENADRYL) Given 01/01/2022 8:49 AM SENIOR BUSINESS DEVELOPMENT ANALYST 75 mg 75 mg, oral, Bedtime PRN, sleep, Starting on Tue12/30/21 at 1715 FLUoxetine capsule 80 mg (PROzac) Given 01/01/2022 8:34 AM SENIOR BUSINESS DEVELOPMENT ANALYST 80 mg 80 mg, oral, Daily, First dose on Tue12/31/21 at 0900, FLUoxetine orderable was interchanged for FLUoxetine tablet/capsule Given 12/31/2021 8:16 AM SENIOR BUSINESS DEVELOPMENT ANALYST 80 mg fluticasone furoate 100 mcg/actuation Given 01/01/2022 8:[address] 2 puffs inhaler 2 puff (ARNUITY ELLIPTA) 2 puff, inhalation, 2 times daily, First dose on Tue12/30/21 at 2100, fluticasone furoate 100 mcg was interchanged for fluticasone MDI 110 mcg Given 12/31/2021 9:04 PM SENIOR BUSINESS DEVELOPMENT ANALYST 2 puffs Given 12/31/2021 8:17 AM SENIOR BUSINESS DEVELOPMENT ANALYST 2 puffs granisetron (PF) injection 1 mg (KYTRIL) Given 12/30/2021 3:57 PM SENIOR BUSINESS DEVELOPMENT ANALYST 1 mg 1 mg, intravenous, Once as needed, nausea, vomiting, Starting on Tue12/30/21 at 1546, For 1 dose, PACU (only), If patient does not respond to ondansetron or haloperidol. (order of antiemetic administration - ondansetron then haloperidol then granisetron) haloperidol lactate injection 1 mg (HALD OL) Given 12/30/2021 4:31 PM SENIOR BUSINESS DEVELOPMENT ANALYST 1 mg 1 mg, intravenous, Every 6 [...] injection 0.2 mg Given 12/30/2021 4:17 PM SENIOR BUSINESS DEVELOPMENT ANALYST 0.2 mg (DILAUDID) 0.2 mg, intravenous, Every 5 min PRN, moderate pain or score 4-6 of 10, severe pain or score 7-10 of 10, Starting on Tue12/30/21 at 1546, PACU (only), Up to maximum total dose of 2 mg Given 12/30/2021 4:07 PM SENIOR BUSINESS DEVELOPMENT ANALYST 0.2 mg Given 12/30/2021 3:55 PM SENIOR BUSINESS DEVELOPMENT ANALYST 0.2 mg HYDROmorphone (PF) injection 0.4 mg Given 01/01/2022 4:56 AM SENIOR BUSINESS DEVELOPMENT ANALYST 0.4 mg (DILAUDID) 0.4 mg, intravenous, Every 2 hour PRN, severe pain or score 7-10 of 10, Starting on Tue12/30/21 at 1711, For 5 doses, May administer if pain is greater than 7 after scheduled and PRN regimen exhausted. If pain remains greater than 7, notify primary service. Given 12/31/2021 11:35 AM SENIOR BUSINESS DEVELOPMENT ANALYST 0.4 mg Given 12/31/2021 4:14 AM SENIOR BUSINESS DEVELOPMENT ANALYST 0.4 mg ipratropium-albuteroL 0.5-2.5 mg/3 mL nebulizer Given 01/01/2022 3:15 AM SENIOR BUSINESS DEVELOPMENT ANALYST 3 mL solution 3 mL (DUONEB) 3 mL, nebulization, 4 times daily PRN, shortness of breath, wheezing, Starting on Tue12/30/21 at 1711 ketamine injection 10 mg (KETALAR) Given 12/30/2021 12:38 PM SENIOR BUSINESS DEVELOPMENT ANALYST 10 mg 10 mg, intravenous, Once, On Tue12/30/21 at 1300, For 1 dose, Pre-Op lactated ringers Rate/Dose Change 01/01/2022 1:00 AM SENIOR BUSINESS DEVELOPMENT ANALYST 20 mL/hr 20 mL/hr 75 mL/hr, intravenous, Continuous, Starting on Tue12/30/21 at 1715, Until patient has 500cc po intake New Bag 12/31/2021 11:46 PM SENIOR BUSINESS DEVELOPMENT ANALYST 75 mL/hr 75 mL/hr Rate/Dose Change 12/31/2021 3:55 AM SENIOR BUSINESS DEVELOPMENT ANALYST 20 mL/hr 20 mL/hr lactated ringers Continued from OR 12/30/2021 4:00 PM SENIOR BUSINESS DEVELOPMENT ANALYST 75 mL/hr 75 mL/hr 75 mL/hr, intravenous, Continuous, Starting on Tue12/30/21 at 1600, PACU & Post-Op lamoTRIgine tablet 200 mg (LaMICtaL) Given 01/01/2022 8:34 AM SENIOR BUSINESS DEVELOPMENT ANALYST 200 mg 200 mg, oral, 2 times daily, First dose on Tue12/30/21 at 2100 Given 12/31/2021 8:56 PM SENIOR BUSINESS DEVELOPMENT ANALYST 200 mg Given 12/31/2021 8:16 AM SENIOR BUSINESS DEVELOPMENT ANALYST 200 mg midazolam (PF) injection 1 mg (VERSED) Given 12/30/2021 12:38 PM SENIOR BUSINESS DEVELOPMENT ANALYST 2 mg 1 mg, intravenous, Every 2 [...] 4 mg (ZOFRAN) Given 01/01/2022 1:16 AM SENIOR BUSINESS DEVELOPMENT ANALYST 4 mg 4 mg, intravenous, Every 6 hours PRN, nausea, vomiting, Starting on Tue12/30/21 at 1711, For 48 hours, Reassess for nausea or vomiting after at least 10 minutes. If nausea or vomiting persists administer next ordered antiemetic medications (order for antiemetic medication administration ondansetron then haloperidol then promethazine). Given 12/31/2021 8:16 AM SENIOR BUSINESS DEVELOPMENT ANALYST 4 mg oxyCODONE 12 hr tablet 20 mg (OxyCONTIN) Given 12/30/2021 12:35 PM SENIOR BUSINESS DEVELOPMENT ANALYST 20 mg 20 mg, oral, Once, On Tue12/30/21 at 1300, For 1 dose, Pre-Op, Swallow whole. Do NOT crush, chew, or split tablet. oxyCODONE IR tablet 10 mg (ROXICODONE) Given 12/31/2021 10:43 AM SENIOR BUSINESS DEVELOPMENT ANALYST 10 mg 10 mg, oral, Every 4 hours PRN, severe pain or score 7-10 of 10, Starting on Tue12/30/21 at 1536 Given 12/31/2021 6:19 AM SENIOR BUSINESS DEVELOPMENT ANALYST 10 mg Given 12/31/2021 12:22 AM SENIOR BUSINESS DEVELOPMENT ANALYST 10 mg oxyCODONE IR tablet 10 mg (ROXICODONE) Given 12/31/2021 2:21 PM SENIOR BUSINESS DEVELOPMENT ANALYST 10 mg 10 mg, oral, Every 4 hours PRN, severe pain or score 7-10 of 10, Starting on Tue12/31/21 at 1415 oxyCODONE IR tablet 10 mg (ROXICODONE) Given 01/01/2022 2:38 PM SENIOR BUSINESS DEVELOPMENT ANALYST 10 mg 10 mg, oral, Every 3 hours PRN, severe pain or score 7-10 of 10, Starting on Tue12/31/21 at 1745 Given 01/01/2022 11:35 AM SENIOR BUSINESS DEVELOPMENT ANALYST 10 mg Given 01/01/2022 7:07 AM SENIOR BUSINESS DEVELOPMENT ANALYST 10 mg oxyCODONE IR tablet 5 mg (ROXICODONE) 5 mg, oral, Every 3 hours PRN, moderate pain or score 4-6 of 10, Starting on Clementine 12/31/21 at 1745, If patient is >75 consider changing to 2.5-5mg scale pantoprazole DR tablet 40 mg (PROTONIX) Given 01/01/2022 3:46 PM SENIOR BUSINESS DEVELOPMENT ANALYST 40 mg 40 mg, oral, 2 times daily before breakfast and dinner, First dose on Tue12/31/21 at 0700, pantoprazole 40 mg oral twice daily was interchanged for esomeprazole 20 or 40 mg oral twice daily Swallow whole. Do NOT crush, chew, or split tablet. Given 01/01/2022 6:29 AM SENIOR BUSINESS DEVELOPMENT ANALYST 40 mg Given 12/31/2021 4:47 PM SENIOR BUSINESS DEVELOPMENT ANALYST 40 mg pregabalin capsule 600 mg (LYRICA) Given 01/01/2022 8:34 AM SENIOR BUSINESS DEVELOPMENT ANALYST 600 mg 600 mg, oral, 2 times daily, First dose on Tue12/30/21 at 2100 Given 12/31/2021 8:56 PM SENIOR BUSINESS DEVELOPMENT ANALYST 600 mg Given 12/31/2021 8:15 AM SENIOR BUSINESS DEVELOPMENT ANALYST 600 mg QUEtiapine tablet 50 mg (SEROquel) Given 12/31/2021 8:57 PM SENIOR BUSINESS DEVELOPMENT ANALYST 50 mg 50 mg, oral, Daily at bedtime, First dose on Tue12/30/21 at 2100 Given 12/30/2021 9:55 PM SENIOR BUSINESS DEVELOPMENT ANALYST 50 mg scopolamine base 1 mg Medication Applied 12/30/2021 12:02 PM 1 patch Behind Left Ear over 3 days 1 patch SENIOR BUSINESS DEVELOPMENT ANALYST (TRANSDERM SCOP) 1 patch, transdermal, Administer over 72 Hours, Once as needed, nausea and vomiting, Starting on Tue12/30/21 at 1201, For 1 dose, Pre-Op, Contains 1.5 mg to deliver 1 mg/72 hours. sennosides-docusate sodium 8.6-50 mg per Given 01/01/2022 8:35 A M SENIOR BUSINESS DEVELOPMENT ANALYST 1 tablet tablet 1 tablet (SENOKOT-S) 1 tablet, oral, 2 times daily, First dose on Tue12/30/21 at 2100, Do not give if patient has diarrhea. Given 12/31/2021 8:57 PM SENIOR BUSINESS DEVELOPMENT ANALYST 1 tablet Given 12/31/2021 8:16 AM SENIOR BUSINESS DEVELOPMENT ANALYST 1 tablet sodium chloride 0.9 % [...] injection 3 mL Given 12/31/2021 8:18 AM SENIOR BUSINESS DEVELOPMENT ANALYST 3 mL 3 mL, intravenous, Every 12 hours scheduled, First dose on Tue12/30/21 at 2100, PACU & Post-Op, Peripheral Intravenous Catheter and Rapid Infusion Catheter, when no infusion to maintain patency Given 12/30/2021 9:53 PM SENIOR BUSINESS DEVELOPMENT ANALYST 3 mL zonisamide capsule 300 mg (ZONEGRAN) Given 01/01/2022 8:35 AM SENIOR BUSINESS DEVELOPMENT ANALYST 300 mg 300 mg, oral, 2 times daily, First dose on Tue12/30/21 at 2100, Swallow whole. Do NOT crush, chew or open capsule. Given 12/31/2021 8:57 PM SENIOR BUSINESS DEVELOPMENT ANALYST 300 mg Given 12/31/2021 8:16 AM SENIOR BUSINESS DEVELOPMENT ANALYST 300 mg documented in this encounter Active and Recently Administered Medications Times are shown in SENIOR BUSINESS DEVELOPMENT ANALYST. Scheduled Medication Order 12/30/2021 12/31/2021 01/01/2022 acetaminophen tablet 1,000 mg (TYLENOL) (COMPLETED) 12 (Given - Provider: Manda Barnett RBrittonNrBitton) 1,000 mg, oral, Once, On Tue12/30/21 at [...] Viktoriya Givens R.N.)1136 (Given - Provider: Corrie Toscnao R.NBritton) 1,000 mg, oral, Every 6 hours, [...] 1419 (Given - Provider: Emre Rodriguez APRN, YARN MAN) 2,000 mg (rounded from 1,747.5 mg = [...] dropping tourniquet zonisamide capsule 300 mg (ZONEGRAN) 7715 (Given - Pro vider: Ezequiel Hernandez, R.N.) [...] mg of calcium, oral, Every 2 hour NV N, indigestion, Starting on Tue12/30/21 at 1711, [...] over 3 days 1 patch (TRANSDERM S CREAM DIPPER) (CANCELED) 1202 (Medication Applied - Provider: Manda [...] documented as of this encounter Care Teams Radio Announcer Relationship Specialty Start Date End Date Elsewhere, Pcp PCP - General Family Medicine 12/25/21 documented as of this encounter
--- OUTSIDE RECORDS SUMMARY | 2022-08-01 07:45 | XMS_ITS | Encounter Summary ---
:1965 Author Organization [facility] Address [address] [place] [id number] Care Team Providers Name Role Phone Elsewhere, Pcp Primary Care Provider Unavailable Reason for Visit Reason Comments Pre-op Exam Outpatient (Routine) - Closed Specialty Diagnoses / Procedures Referred By Contact Refer red To Contact Orthopedic Surgery Diagnoses Preoperative Exam Painful Total Joint Arthroplasty Initial (HCC) Alfredo Herrera [facility] [address] [place] [phone] Referral ID Status Reason Start Date Expiration Date Visits Requ ested Visits Authorized [id number] Closed 10/13/2021 10/13/2022 1 1 Encounter Details Date Type Department Care Team Description 12/29/2021 Office Visit Department of Cyrus Polk Shoulde r Left (Primary Dx); Orthopedic Surgery in [place] Preoperative Exam; [place], [place] [address] [place] [address] Painful Total Joint Arthroplasty Initial ([facility]) [address] [place] [phone] Social History Tobacco Use Types Packs/Day Years [...] you attend anglican or Patient refused 2021 jewish services? Do [...] may involve the use of a medical asst made by a company [email or web address] I or one of my partners have collaborated to design, develop, or improve orthopedic implants, instruments, or products. Both the [facility] and the individual surgeons involved receive royalty payments from the use of those specific devices at other institutions, but no royalties or any other payments are paid for the use of those devices with any [facility] patient. The clinical rationale for the use of those devices as well as the availability and applicability of alternative devices was reviewed. He understands that the final decision for the use of a specific medical asst often is made at the time of surgery. All of his questions were answered; he understands and agrees with my approach to device selection and wants to proceed. PING ASSOCIATE documented in this encounter Plan of Treatment Not on filedocumented as of this encounter Visit Diagnoses Diagnosis Pain Shoulder Left - Primary Preoperative Exam Painful Total Joint Arthroplasty Initial (HCC) documented in this encounter Additional Health Concerns Infection Onset Date Last Indicated Resolved Time COVID19 Pending 12/29/2021 12/29/2021 12/29/2021 4:20 PM SHIPPING ASSOCIATE Assessment Noted Time PHQ-9 Depression Total Score: 16 02/11/2021 12:00 AM C DT documented as of this encounter Care Teams Mixer Operator Raw Salt Relationship Specialty Start Date End Date Elsewhere, Pcp PCP - General Family Medicine 12/25/21 documented as of this encounter
--- OUTSIDE RECORDS SUMMARY | 2022-08-01 07:45 | XMS_ITS | Encounter Summary ---
:1965 Author Organization [facility] Address [address] [place] [address] Care Team Providers Name Role Phone Unavailable Primary Care Provider Unavailable Reason for Referral MRI/CAT/PET Scan (Routine) - Authorized Specialty Diagnoses / Procedures Referred By Contact Refer red To Contact Radiology Diagnoses Stroke Cerebrovascular Accident Personal History Occlusion Vertebral Artery With lnfarction (HCC) Robert Diehl M.D. [facility] Procedures MR Neck Angiogram without and with IV Contrast [address] [place] [address] Referral ID Status Reason Start Date Expiration Date Visits V isits Requested Authorized [id number] Authorized 12/10/2021 12/10/2022 1 1 ETITIVE ATHLETE Outpatient (Routine) - Authorized Specialty Diagnoses / Procedures Referred By Contact Refer red To Contact Diagnoses Aneurysm Cerebral Unruptured (HCC) Robert Diehl M.D. [facility] Procedures PM Device interrogation (clinic) [address] [place] [address] Referral ID Status Reason Start Date Expiration Date Visits V isits Requested Authorized [id number] Authorized 12/10/2021 12/10/2022 1 1 ETITIVE ATHLETE MRI/CAT/PET Scan (Routine) - Authorized Specialty Diagnoses / Procedures Referred By Contact Refer red To Contact Radiology Diagnoses Aneurysm Cerebral Unruptured (HCC) Robert Diehl M.D. [facility] Procedures MR Brain Angiogram without IV Contrast [address] [place] [phone] Referral ID Status Reason Start Date Expiration Date Visits V isits Requested Authorized [id number] Authorized 12/10/2021 12/10/2022 1 1 ETITIVE ATHLETE Reason for Visit Reason Comments Michel Encounter Details Date Type Department Care Team Description 12/10/2021 Clinical Communication Department of Robert Diehl W8B/[id number] Neurology in [place], [place] [address] [facility] [address] [place] [phone] Social History Tobacco Use Types Packs/Day Years [...] you attend anglican or Patient refused 2021 cheondoism services? Do [...] 2:58 PM CST Signed and thank you. ETITIVE ATHLETE documented in this encounter Plan of Treatment Scheduled Orders Name Type Priority Associated Diagnoses Order S chedule MR Brain Angiogram Imaging RAD - Routine Aneurysm Cerebral Exp ected: without IV Contrast (most inpatients Unruptured ([facility]) 05/03/2022, and all Expires: outpatients) 03/10/2023 PM Device Procedures Routine Aneurysm Cerebral Expected: interrogation Unruptured ([facility]) 12/29/2021 , (clinic) Expires: 03/10/2023 MR Neck Angiogram Imaging RAD - Routine Stroke Cerebrovascular Expected: without and with IV (most inpatients Accident Personal 05/03/2022 Contrast and all History (Approximate), outpatients) Occlusion Vertebral Expires: Artery With lnfarction 03/10 ([facility]) documented as of this encounter Visit Diagnoses Diagnosis Stroke Cerebrovascular Accident Personal History - Primary Aneurysm Cerebral Unruptured ([facility]) Occlusion Vertebral Artery With lnfarcti on ([facility]) documented in this encounter Additional Health Concerns Assessment Noted Time PHQ-9 Depression Total Score: 16 02/11/2021 12:00 AM C DT documented as of this encounter
--- OUTSIDE RECORDS SUMMARY | 2022-08-01 07:45 | XMS_ITS | Encounter Summary ---
:1965 Author Organization [facility] Address [address] [place] [phone] Care Team Providers Name Role Phone Unavailable Primary Care Provider Unavailable Encounter Details Date Type Department Care Team Description 09/23/2021 Hospital Encounter Department of Alfredo Herrera Total Joint Radiology, Anh Gonzales Arthroplasty Initial Building, in [address] [place] [address] ([facility]) [facility] [phone] [place] [address] [place], [place] (Work) [phone] Social History Tobacco Use Types Packs/Day Years [...] you attend religion or Patient refused 2021 synagogue services? Do [...]
--- OUTSIDE RECORDS SUMMARY | 2022-08-01 07:45 | XMS_ITS | Encounter Summary ---
:1965 Author Organization [facility] Address [address] [place] [address] Care Team Providers Name Role Phone Elsewhere, Pcp Primary Care Provider Unavailable Reason for Visit Outpatient (Routine) - Closed Specialty Diagnoses / Procedures Referred By Contact Refer red To Contact Anesthesiology Diagnoses Preoperative Exam Painful Total Joint Arthroplasty Initial (HCC) Alfredo Herrera [facility]hest [facility] [address] [place] [phone] Referral ID Status Reason Start Date Expiration Date Visits Requ ested Visits Authorized [id number] Closed 10/13/2021 10/13/2022 1 1 Encounter Details Date Type Department Care Team Description 12/29/2021 Comprehensive Visit Preoperative Cayetano Herrera, O.P.A.-CBritton [address] [place] [phone] Preanesthetic Medical Exam (Primary Dx); Evaluation Center Etta Lyle M.D. 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 Do [...] Comments Blood Pressure 125/78 12/29/2021 1:21 PM COMMODITIES CLERK Pulse 64 12/29/2021 1:21 PM COMMODITIES CLERK Temperature 36.1 ??C (97 ??F) 12/29/2021 1:01 PM COMMODITIES CLERK Respiratory Rate - - Oxygen Saturation 97% 12/29/2021 1:21 PM COMMODITIES CLERK Inhaled Oxygen Concentration - - Weight 72.6 kg (160 lb 0.9 oz) 12/29/2021 1:01 PM COMMODITIES CLERK Height 152 cm (4' 11.84) 12/29/2021 1:01 PM COMMODITIES CLERK Body Mass Index 31.42 12/29/2021 1:01 PM COMMODITIES CLERK documented in this encounter H&P Notes Etta [...] RCRI score: 1; 6% risk of , SD, or cardiac arrest OBJECTIVE OBJECTIVE PHYSICAL EXAMINATION [...] 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 ([facility]) # Aneurysm Cerebral Unruptured ([facility]) # Dissection Vertebral Artery ([facility]) # 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 - s/p embolization of right vertebral artery dissection with no new strokes following stabilization of her dissection - no current significant neurologic deficits following posterior circulation strokes; reports some balance issues when ambulating - aspirin 325 mg held since 12/21/2021; resume aspirin 325 mg postoperatively # Chronic Pain Syndrome # Fibromyalgia # Bipolar II Disorder ([facility]) # Anxiety Generalized Disorder - s/p spinal cord stimulator placement ([employer]erstuff, MRI compatible to 1.5 Lucy) - patient [...] with patient the Checklist for Surgical Patients [id number]. Written and verbal instructions given on medication [...] Lyle M.D. PGY-3, Anesthesiology and Perioperative Medicine [facility] ODITIES CLERK documented in this encounter Plan of [...] COVID19 Pending 12/29/2021 12/29/2021 12/29/2021 4:20 PM COMMODITIES CLERK Assessment Noted Time PHQ-9 Depression Total Score: 16 02/11/2021 12:00 AM C DT documented as of this encounter Care Teams Bulldozer Engineer Relationship Specialty Start Date End Date Elsewhere, Pcp PCP - General Family Medicine 12/25/21 documented as of this encounter
--- OUTSIDE RECORDS SUMMARY | 2022-08-01 07:45 | XMS_ITS | Encounter Summary ---
:[address] [facility] Address [address] [place] [address] Care Team Providers Name Role Phone Unavailable Primary Care Provider Unavailable Reason for Visit Outpatient (Routine) - Closed Specialty Diagnoses / Procedures Referred By Contact Refer red To Contact Neurology Robert Diehl M. D. [facility] [address] [place] [phone] Referral ID Status Reason Start Date Expiration Date Visits Requ ested Visits Authorized [id number] Closed 09/15/2020 09/15/2021 1 1 Encounter Details Date Type Department Care Team Description 11/18/2021 Virtual Visit Department of Robert Diehl Stroke Cere brovascular Neurology jimmy Celaya M.D. Accident Personal [place], [place] [address] [place] [address] History (Primary Dx) [address] [place] [phone] Social History Tobacco Use Types Packs/Day Years [...] you attend mormon or Patient refused 2021 temple services? Do [...] 19 pandemic patient not seen in a [id number] manner. This is a 56-year-old woman with [...] antibiotics she has not been seen by [facility] Orthopedics Department who are planning a [...] by: Robert Diehl M.D. 11/18/21 11:46 AM THREAD CUTTER TENDER Diagnosis Plan 1. Stroke Cerebrovascular Accident Personal History AD CUTTER TENDER documented in this encounter Plan of Treatment Not on filedocumented as of this encounter Visit Diagnoses Diagnosis Stroke Cerebrovascular Accident Personal History - Primary documented in this encounter Additional Health Concerns Assessment Noted Time PHQ-9 Depression Total Score: 16 02/11/2021 12:00 AM C DT documented as of this encounter
--- OUTSIDE RECORDS SUMMARY | 2022-08-01 07:45 | XMS_ITS | Encounter Summary ---
:1965 Author Organization [facility] Address [address] [place] [address] Care Team Providers Name Role Phone Elsewhere, Pcp Primary Care Provider Unavailable Encounter Details Date Type Department Care Team Description 12/29/2021 Hospital Encounter Department of Alfredo Herrera ative Exam; Laboratory Medicine A, O.P.A.-C. Painful Total Joint Arthroplasty Initial (HCC) and Pathology, [address] [place] [address], in [place] [phone] [place] [phone] [place] [address] (Work) [place], [place] [phone] [phone] (Fax) [phone] Social History Tobacco Use Types Packs/Day Years [...] you attend catholic or Patient refused 2021 sikhism services? Do [...] THC multivit-min/iron/folic/ Take 1 tablet by 0 [id number] (HAIR, SKIN AND mouth daily. NAILS ADVANCED [...] 12/29/2021 11:34 Results for this RBC AM SENIOR SAFETY MANAGEMENT CONSULTANT procedure are i n the results section. CBC WITH Routine 12/29/2021 11:34 Preoperative Ex am Results for this DIFFERENTIAL, B AM SENIOR SAFETY MANAGEMENT CONSULTANT Painful Total Joint proce dure are in Arthroplasty Initial the res ults ([facility]) section. TYPE AND SCREEN Routine 12/29/2021 11:34 Preoperative Ex am Results for this AM SENIOR SAFETY MANAGEMENT CONSULTANT Painful Total Joint procedur e are in Arthroplasty Initial the res ults ([facility]) section. BASIC METABOLIC Routine 12/29/2021 11:34 Preoperative Ex am Results for this PANEL, S/P AM SENIOR SAFETY MANAGEMENT CONSULTANT Painful Total Joint procedur e are in Arthroplasty Initial the res ults ([facility]) section. documented in this encounter Results Antibody Screen, RBC (12/29/2021 11:34 AM SENIOR SAFETY MANAGEMENT CONSULTANT) athologist Signature Antibody Negative Negative 12/29/2021 DTL Screen 12:59 PM SENIOR SAFETY MANAGEMENT CONSULTANT Specimen Anatomical Collection Method Collection Time Receive d Time (Source) Location / / Volume Laterality Blood 12/29/2021 11:34 12/29/2021 AM SENIOR SAFETY MANAGEMENT CONSULTANT 11:58 AM SENIOR SAFETY MANAGEMENT CONSULTANT Alfrdeo Kamara LAB BLOOD BANK TEST ORDERABL ES Performing Organization Address City/State/ZIP Code Phon e Number [facility] - [address] [place], [place] [address] [facility] [place] [address] [facility] [address] (ABNORMAL) Basic Metabolic Panel (12/29/2021 11:34 AM SENIOR SAFETY MANAGEMENT CONSULTANT) athologist [facility] Potassium, S 4.7 3.6 - 5.2 12/29/2021 DTL mmol/L 12:38 PM SENIOR SAFETY MANAGEMENT CONSULTANT Sodium, S 143 135 - 145 12/29/2021 DTL mmol/L 12:38 PM SENIOR SAFETY MANAGEMENT CONSULTANT Chloride, S 108 (H) 98 - 107 12/29/2021 DTL mmol/L 12:38 PM SENIOR SAFETY MANAGEMENT CONSULTANT Bicarbonate, S 24 22 - 29 12/29/2021 DTL mmol/L 12:38 PM SENIOR SAFETY MANAGEMENT CONSULTANT Anion Gap 11 7 - 15 12/29/2021 DTL 12:38 PM SENIOR SAFETY MANAGEMENT CONSULTANT BUN (Blood Urea 15 6 - 21 12/29/2021 DTL Nitrogen), S mg/dL 12:38 PM SENIOR SAFETY MANAGEMENT CONSULTANT Creatinine 0.83 0.59 - 12/29/2021 DTL 1.04 mg/dL 12:38 PM SENIOR SAFETY MANAGEMENT CONSULTANT eGFR-Non 78 >=60 12/29/2021 DTL Black/ mL/min/BSA 12:38 PM SENIOR SAFETY MANAGEMENT CONSULTANT [place] Comment: ----ADDITIONAL INFORMATION---- Estimated GFR calculated using the 2009 CKD_EPI creatinine equation. eGFR-Black/ 90 >=60 mL/min/BSA 2021 12:38 PM SENIOR SAFETY MANAGEMENT CONSULTANT DTL Comment: ----ADDITIONAL INFORMATION---- Estimated GFR calculated using the 2009 CKD_EPI creatinine equation. Calcium, Total, S 9.1 8.6 - 10.0 mg/dL 12/29/2021 12:3 8 PM SENIOR SAFETY MANAGEMENT CONSULTANT DTL Glucose, S 90 70 - 140 mg/dL 12/29/2021 12:38 PM SENIOR SAFETY MANAGEMENT CONSULTANT DTL Specimen Anatomical Collection Method Collection Time Receive d Time (Source) Location / / Volume Laterality Blood (Blood, 12/29/2021 11:34 12/29/2021 Venous) AM SENIOR SAFETY MANAGEMENT CONSULTANT 12:13 PM SENIOR SAFETY MANAGEMENT CONSULTANT Alfredo Kamara LAB BLOOD ADD-ON Performing Organization Address City/State/ZIP [facility] Phon e Number [facility] - 200 [place], [place] [address] [facility] [place] [address] [facility] 200 [facility] Type and Screen (with reflex Antibody ID) (12/29/2021 11:34 AM SENIOR SAFETY MANAGEMENT CONSULTANT) [facility] Method Time Signature ABORh A Neg Not applicable 12/29/2021 ETRM 12:59 PM SENIOR SAFETY MANAGEMENT CONSULTANT Antibody CANCELED 12/29/2021 ETRM Screen 12:59 PM SENIOR SAFETY MANAGEMENT CONSULTANT Comment: Result canceled by the ancillar y. Type & Screen Expiration 02/26/2022 23:59 12/29/19 22 12:59 PM SENIOR SAFETY MANAGEMENT CONSULTANT ETRM Testing Location Ara DEFAULT 12/29/2021 11:58 AM SENIOR SAFETY MANAGEMENT CONSULTANT ETRM Specimen Anatomical Collection Method Collection Time Receive d Time (Source) Location / / Volume Laterality Blood (Blood, 12/29/2021 11:34 12/29/2021 Venous) AM SENIOR SAFETY MANAGEMENT CONSULTANT 11:58 AM SENIOR SAFETY MANAGEMENT CONSULTANT Alfredo Kamara LAB BLOOD BANK TEST ORDERABL ES Performing Organization Address City/[facility] Phon e Number [facility] - [address] [place] [phone] [facility] [place] [address] [facility] 200 [facility] (ABNORMAL) CBC with Differential, Blood (12/29/2021 11:34 AM SENIOR SAFETY MANAGEMENT CONSULTANT) [facility] Method Time Signature Hemoglobin 11.2 (L) 11.6 - 12/29/2021 DTL 15.0 g/dL 12:02 PM SENIOR SAFETY MANAGEMENT CONSULTANT Hematocrit 34.1 (L) 35.5 - 12/29/2021 DTL 44.9 % 12:02 PM SENIOR SAFETY MANAGEMENT CONSULTANT Erythrocytes 4.04 3.92 - 12/29/2021 DTL 5.13 12:02 PM SENIOR SAFETY MANAGEMENT CONSULTANT x10(12)/L MCV 84.4 78.2 - 12/29/2021 DTL 97.9 fL 12:02 PM SENIOR SAFETY MANAGEMENT CONSULTANT RBC Distrib Width 20.2 (H) 12.2 - 12/29/2021 DTL 16.1 % 12:02 PM SENIOR SAFETY MANAGEMENT CONSULTANT Platelet Count 324 157 - 371 12/29/2021 DTL x10(9)/L 12:02 PM SENIOR SAFETY MANAGEMENT CONSULTANT Leukocytes 5.1 3.4 - 9.6 12/29/2021 DTL x10(9)/L 12:02 PM SENIOR SAFETY MANAGEMENT CONSULTANT Neutrophils 3.08 1.56 - 12/29/2021 DTL 6.45 12:02 PM SENIOR SAFETY MANAGEMENT CONSULTANT x10(9)/L Lymphocytes 1.39 0.95 - 12/29/2021 DTL 3.07 12:02 PM SENIOR SAFETY MANAGEMENT CONSULTANT x10(9)/L Monocytes 0.43 0.26 - 12/29/2021 DTL 0.81 12:02 PM SENIOR SAFETY MANAGEMENT CONSULTANT x10(9)/L Eosinophils 0.17 0.03 - 12/29/2021 DTL 0.48 12:02 PM SENIOR SAFETY MANAGEMENT CONSULTANT x10(9)/L Basophils 0.05 0.01 - 12/29/2021 DTL 0.08 12:02 PM SENIOR SAFETY MANAGEMENT CONSULTANT x10(9)/L Specimen Anatomical Collection Method Collection Time Receive d Time (Source) Location / / Volume Laterality Blood (Blood, 12/29/2021 11:34 12/29/2021 Venous) AM SENIOR SAFETY MANAGEMENT CONSULTANT 11:54 AM SENIOR SAFETY MANAGEMENT CONSULTANT Alfredo Kamara LAB BLOOD ADD-ON Performing Organization Address City/State/ZIP Code Phon e Number [facility] - [facility] [place], [place] [address] [facility] [place] [address] [facility] [address] documented in this encounter Visit Diagnoses Diagnosis Preoperative Exam Painful Total Joint Arthroplasty Initial (HCC) documented in this encounter Additional Health Concerns Assessment Noted Time PHQ-9 Depression Total Score: 16 02/11/2021 12:00 AM C DT documented as of this encounter Care Teams Elementary Secretary Relationship Specialty Start Date End Date Elsewhere, Pcp PCP - General Family Medicine 12/25/21 documented as of this encounter
--- OUTSIDE RECORDS SUMMARY | 2022-08-01 07:45 | XMS_ITS | Encounter Summary ---
:1965 Author Organization [facility] Address [address] [place] [address] Care Team Providers Name Role Phone Unavailable Primary Care Provider Unavailable Reason for Visit Reason Comments Pain Appointment Request (Routine) - Closed Specialty Diagnoses / Procedures Referred By Contact Refer red To Contact Orthopedic Surgery Diagnoses Arthroplasty Total Shoulder Replacement Status Post Left David Cohn M.D. [address] [facility] [address] [place] [address] Referral ID Status Reason Start Date Expiration Date Visits Requ ested Visits Authorized [id number] Closed 09/04/2021 09/04/2022 1 1 Encounter Details Date Type Department Care Team Description 09/23/2021 Comprehensive Visit Department of Cyrus Polk Pain Shoulder Left Orthopedic Surgery Lilian Souza (Primary Dx) in [address] [place] [phone] [place], [place] [phone] (Work) [phone] Social History Tobacco Use Types Packs/Day Years [...] you attend confucianist or Patient refused 2021 mandaeism services? Do you belong to any clubs or No 05/17/2022 organizations such as confucianist groups, unions, fraPreparis or athletic groups, or school groups? How [...]
--- OUTSIDE RECORDS SUMMARY | 2022-08-01 07:45 | XMS_ITS | Encounter Summary ---
:1965 Author Organization [facility] Address [address] [place] [address] Care Team Providers Name Role Phone Elsewhere, Pcp Primary Care Provider Unavailable Encounter Details Date Type Department Care Team Description 12/29/2021 Hospital Encounter Department of Alfredo Herrera ative Exam; Radiology, Clifton GonzalesPEmilioCBritton Painful Total Joint Arthroplasty Initial ([facility]) Building, in [address] [place] [phone] [place] [address] [place], [place] (Work) [phone] Social History Tobacco Use [...] you attend faith or Patient refused 2021 lutheran services? Do [...] THC multivit-min/iron/folic/ Take 1 tablet by 0 [id number] (HAIR, SKIN AND mouth daily. NAILS ADVANCED [...] for this 2+ VIEWS (most inpatients AM GANG PLANK WORKMAN Painful Total Joint proc edure are in and all Arthroplasty the results outpatients) Initial (HCC) section. documented in this encounter Results DX Shoulder Left 2+ Views (12/29/2021 10:30 AM GANG PLANK WORKMAN) Anatomical Region Laterality Modality Upper Extremity, Shoulder, Musculoskeletal RST LOS, Left Digital Radiography Musculoskeletal ARZ LOS, Muskuloskeletal FLA LOS Specimen (Source) Anatomical Collection Method Collection Time Re ceived Time Location / / Volume Laterality 12/29/2021 10:53 AM GANG PLANK WORKMAN Impressions 12/29/2021 10:57 AM GANG PLANK WORKMAN Demineralization. Left shoulder arthroplasty revision to a reverse TSA. Developing lucency about the glenoi d component screws when compared back to 11/13/20, compatible with loosening. Pre sumed distal clavicle resection. Incompletely imaged instrumented spinal fusion from the upper cervical spine to the upper thoracic spine. Spinal cord st imulator. At least one old healed left posterior rib fracture. Narrative 12/29/2021 10:57 AM GANG PLANK WORKMAN EXAM: ??DX SHOULDER LEFT 2+ VIEWS Procedure [...] COVID19 Pending 12/29/2021 12/29/2021 12/29/2021 4:20 PM GANG PLANK WORKMAN Assessment Noted Time PHQ-9 Depression Total Score: 16 02/11/2021 12:00 AM C DT documented as of this encounter Care Teams Exhaust Emissions Automotive Technician Relationship Specialty Start Date End Date Elsewhere, Pcp PCP - General Family Medicine 12/25/21 documented as of this encounter
--- OUTSIDE RECORDS SUMMARY | 2022-08-01 07:45 | XMS_ITS | Encounter Summary ---
:1965 Author Organization [facility] Address [address] [place] [address] Care Team Providers Name Role Phone Unavailable Primary Care Provider Unavailable Reason for Referral MRI/CAT/PET Scan (Routine) - Closed Specialty Diagnoses / Procedures Referred By Contact Refer red To Contact Radiology Diagnoses Painful Total Joint Arthroplasty Initial ([facility]) Alfredo Herrera [place] Procedures [facility] Shoulder Left without IV Contrast O.P.A.-C. [address] [place] [phone] Referral ID Status Reason Start Date Expiration Date Visits Requ ested Visits Authorized [id number] Closed 09/07/2021 09/07/2022 1 1 Reason for Visit MRI/CAT/PET Scan (Routine) - Closed Specialty Diagnoses / Procedures Referred By Contact Refer red To Contact Radiology Diagnoses Painful Total Joint Arthroplasty Initial ([facility]) Alfredo Herrera [place] Procedures CT Shoulder Left without IV Contrast O.P.A.-C. [address] [place] [phone] Referral ID Status Reason Start Date Expiration Date Visits Requ ested Visits Authorized [id number] Closed 09/07/2021 09/07/2022 1 1 Encounter Details Date Type Department Care Team Description 09/25/2021 Hospital Encounter Department of Alfredo Herrera Painful Total Joint Radiology, Emily HillAOmar Arthroplasty Initial Building, in [address] [place] [address] ([facility]) [facility] [phone] [facility] [phone] [place], [place] (Work) [address] [phone] Social History Tobacco Use Types Packs/Day Years [...] you attend islam or Patient refused 2021 congregational services? Do [...]
--- OUTSIDE RECORDS SUMMARY | 2022-08-01 07:45 | XMS_ITS | Encounter Summary ---
:1965 Author Organization [facility] Address [address] [place] [address] Care Team Providers Name Role Phone Unavailable Primary Care Provider Unavailable Reason for Visit Reason Comments Communication results Encounter Details Date Type Department Care Team Description 10/05/2021 Clinical Communication Department of Rossy Polk Orthopedic Surgery Cyrus Souza M.D. (results) in [address] 200 [facility] [address] [phone] Social History Tobacco Use Types Packs/Day Years [...] you attend muslim or Patient refused 2021 protestant services? Do [...] Cyrus Polk M.D. 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 Thank you KING DEPARTMENT SUPERVISOR Telephone Encounter - Cyrus Polk M.D. - 10/05/2021 11:37 AM CST Dx: left infected shoulder arthroplasty Procedure: left resection shoulder arthroplasty [id number], NESHA, and see me Surgery date: December 30 Thank you KING DEPARTMENT SUPERVISOR Telephone Encounter - Radha Suh - 10/05/2021 11:18 AM CST Ms. Mosquera calls for results of labs, CT and aspiration results ( She is disappointment no one has reached out to her and that she had to call for these) Please call her with results to date KING DEPARTMENT SUPERVISOR documented in this encounter Plan of Treatment Not on filedocumented as of this encounter Visit Diagnoses Not on filedocumented in this encounter Additional Health Concerns Assessment Noted Time PHQ-9 Depression Total Score: 16 02/11/2021 12:00 AM C DT documented as of this encounter
--- OUTSIDE RECORDS SUMMARY | 2022-08-01 07:45 | XMS_ITS | Encounter Summary ---
:1965 Author Organization [facility] Address [address] [place] [address] Care Team Providers Name Role Phone Unavailable Primary Care Provider Unavailable Encounter Details Date Type Department Care Team Description 10/13/2021 Clinical Communication Preoperative [facility] in [place], [place] [address] [facility] [address] [place] [phone] Social History Tobacco Use Types Packs/Day Years [...] you attend protestant or Patient refused 2021 amish services? Do [...] Umu Gan [facility] - 10/13/2021 11:09 AM SENIOR CATERING SALES MANAGER Surgical Risk Score: 3 Risk Identifiers: 4+ ??? TIA ??? PFO ??? Hx of Arterial Thrombosis ??? Asthma OR CATERING SALES MANAGER documented in this encounter Plan of Treatment Not on filedocumented as of this encounter Visit Diagnoses Not on filedocumented in this encounter Additional Health Concerns Assessment Noted Time PHQ-9 Depression Total Score: 16 02/11/2021 12:00 AM C DT documented as of this encounter
--- OUTSIDE RECORDS SUMMARY | 2022-08-01 07:45 | XMS_ITS | Encounter Summary ---
:1965 Author Organization [facility] Address [address] [place] [address] Care Team Providers Name Role Phone Unavailable Primary Care Provider Unavailable Reason for Visit MRI/CAT/PET Scan (Routine) - Canceled Specialty Diagnoses / Procedures Referred By Contact Refer red To Contact Radiology Diagnoses Aneurysm Cerebral Unruptured (HCC) Robert Diehl M.D. [facility] Procedures MR Brain Angiogram without IV Contrast [address] [place] [phone] Referral ID Status Reason Start Date Expiration Date Visits V isits Requested Authorized [id number] Canceled 09/15/2020 09/15/2021 1 1 Encounter Details Date Type Department Care Team Description 09/18/2021 Hospital Encounter Department of Robert Diehl ed (Patient: Radiology, Severiano Celaya M.D. Request) [facility], [address] [place], [place] [address] [place] [phone] [place], [place] [phone] (Work) [phone] Social History Tobacco Use Types Packs/Day Years [...] you attend christianity or Patient refused 2021 pentecostal services? Do you belong to any clubs or No 05/17/2022 organizations such as christianity groups, unions, [email or web address] or athletic groups, or school groups? How [...]
--- OUTSIDE RECORDS SUMMARY | 2022-08-01 07:45 | XMS_ITS | Encounter Summary ---
:1965 Author Organization [facility] Address [address] [place] [address] Care Team Providers Name Role Phone Unavailable Primary Care Provider Unavailable Encounter Details Date Type Department Care Team Description 11/25/2021 Clinical Communication Department of Guillermo Patterson, Neurologic Surgery in [place], [place] [address] [place] [address] [address] [place] [phone] Social History Tobacco Use Types Packs/Day Years [...] you attend buddhism or Patient refused 2021 alevism services? Do [...] be seen through ED, or local provider/neurology. N OPERATOR documented in this encounter Plan of Treatment Not on filedocumented as of this encounter Visit Diagnoses Not on filedocumented in this encounter Additional Health Concerns Assessment Noted Time PHQ-9 Depression Total Score: 16 02/11/2021 12:00 AM C DT documented as of this encounter
--- OUTSIDE RECORDS SUMMARY | 2022-08-01 07:45 | XMS_ITS | Encounter Summary ---
:1965 Author Organization [facility] Address [address] [place] [address] Care Team Providers Name Role Phone Unavailable Primary Care Provider Unavailable Reason for Referral Outpatient (Routine) - Closed Specialty Diagnoses / Procedures Referred By Contact Refer red To Contact Anesthesiology Diagnoses Preoperative Exam Painful Total Joint Arthroplasty Initial (HCC) [facility] [address] [place] [phone] Referral ID Status Reason Start Date Expiration Date Visits Requ ested Visits Authorized [id number] Closed 10/13/2021 10/13/2022 1 1 E WORK CHECKER Outpatient (Routine) - Closed Specialty Diagnoses / Procedures Referred By Contact Refer red To Contact Orthopedic Surgery Diagnoses Preoperative Exam Painful Total Joint Arthroplasty Initial ([facility]) Alfredo Herrera Rochest [facility] Lebron.Fernando-CBritton 200 [place] [address] Referral ID Status Reason Start Date Expiration Date Visits Requ ested Visits Authorized [id number] Closed 10/13/2021 10/13/2022 1 1 E WORK CHECKER Reason for Visit Reason Comments pre op orders L verena Encounter Details Date Type Department Care Team Description 10/12/2021 Clinical Communication Department of Jam pre op orders ([facility] Lilian Alex) in [place] [address] [address] [place], [place] 200 [facility] [address] [place], [place] [phone] [address] (Work) [phone] Social History Tobacco Use Types Packs/Day Years [...] you attend religious or Patient refused 2021 anabaptism services? Do [...] and see me Surgery date: December 30 E WORK CHECKER documented in this encounter Plan of Treatment Scheduled Referrals Name Type Priority Associated Diagnoses Order S [facility] Orthopedic Surgery Outpatient Referral Routine Preoperat lalo Exam Expected: Pre Op (clinic) Painful Total Joint 12/29 Arthroplasty Initial (Approx imate), (HCC) Expires: 10/12/2024 Preoperative Outpatient Referral Routine Preoperative Exam Expected: Evaluation NESHA Painful Total Joint 2021 consult (clinic) Arthroplasty Initial (Ap proximate), (HCC) Expires: 10/12/2024 documented as of this encounter Results (ABNORMAL) Basic Metabolic Panel (12/29/2021 11:34 AM PIECE WORK CHECKER) P athologist Signature Potassium, S 4.7 3.6 - 5.2 12/29/2021 DTL mmol/L 12:38 PM PIECE WORK CHECKER Sodium, S 143 135 - 145 12/29/2021 DTL mmol/L 12:38 PM PIECE WORK CHECKER Chloride, S 108 (H) 98 - 107 12/29/2021 DTL mmol/L 12:38 PM PIECE WORK CHECKER Bicarbonate, S 24 22 - 29 12/29/2021 DTL mmol/L 12:38 PM PIECE WORK CHECKER Anion Gap 11 7 - 15 12/29/2021 DTL 12:38 PM PIECE WORK CHECKER BUN (Blood Urea 15 6 - 21 12/29/2021 DTL Nitrogen), S mg/dL 12:38 PM PIECE WORK CHECKER Creatinine 0.83 0.59 - 12/29/2021 DTL 1.04 mg/dL 12:38 PM PIECE WORK CHECKER eGFR-Non 78 >=60 12/29/2021 DTL Black/ mL/min/BSA 12:38 PM PIECE WORK CHECKER Azerbaijani Comment: ----ADDITIONAL INFORMATION---- Estimated GFR calculated using the 2009 CKD_EPI creatinine equation. eGFR-Black/ 90 >=60 mL/min/BSA 2021 12:38 PM PIECE WORK CHECKER DTL Comment: ----ADDITIONAL INFORMATION---- Estimated GFR calculated using the 2009 CKD_EPI creatinine equation. Calcium, Total, S 9.1 8.6 - 10.0 mg/dL 12/29/2021 12:3 8 PM PIECE WORK CHECKER DTL Glucose, S 90 70 - 140 mg/dL 12/29/2021 12:38 PM PIECE WORK CHECKER DTL Specimen Anatomical Collection Method Collection Time Receive d Time (Source) Location / / Volume Laterality Blood (Blood, 12/29/2021 11:34 12/29/2021 Venous) AM PIECE WORK CHECKER 12:13 PM PIECE WORK CHECKER Alfredo Kamara LAB BLOOD ADD-ON Performing Organization Address City/[facility] Phon e Number [facility] - [address] [place] [address] Laboratories-[address] Type and Screen (with reflex Antibody ID) (12/29/2021 11:34 AM PIECE WORK CHECKER) [facility] 4Blox Method Time Signature ABORh A Neg Not applicable 12/29/2021 ETRM 12:59 PM PIECE WORK CHECKER Antibody CANCELED 12/29/2021 ETRM Screen 12:59 PM PIECE WORK CHECKER Comment: Result canceled by the ancerick y. Type & Screen Expiration 02/26/2022 23:59 12/29/19 22 12:59 PM PIECE WORK CHECKER ETRM Testing Location [place] DEFAULT 12/29/2021 11:58 AM PIECE WORK CHECKER ETRM Specimen Anatomical Collection Method Collection Time Receive d Time (Source) Location / / Volume Laterality Blood (Blood, 12/29/2021 11:34 12/29/2021 Venous) AM PIECE WORK CHECKER 11:58 AM PIECE WORK CHECKER Alfredo SchmidtCBritton LAB BLOOD BANK TEST ORDERABL ES Performing Organization Address City/[facility] Phon e Number [facility] - [address] ETRM [address] (ABNORMAL) CBC with Differential, Blood (12/29/2021 11:34 AM PIECE WORK CHECKER) [facility] / [facility] 4Blox Method Time Signature Hemoglobin 11.2 (L) 11.6 - 12/29/2021 DTL 15.0 g/dL 12:02 PM PIECE WORK CHECKER Hematocrit 34.1 (L) 35.5 - 12/29/2021 DTL 44.9 % 12:02 PM PIECE WORK CHECKER Erythrocytes 4.04 3.92 - 12/29/2021 DTL 5.13 12:02 PM PIECE WORK CHECKER x10(12)/L MCV 84.4 78.2 - 12/29/2021 DTL 97.9 fL 12:02 PM PIECE WORK CHECKER RBC Distrib Width 20.2 (H) 12.2 - 12/29/2021 DTL 16.1 % 12:02 PM PIECE WORK CHECKER Platelet Count 324 157 - 371 12/29/2021 DTL x10(9)/L 12:02 PM PIECE WORK CHECKER Leukocytes 5.1 3.4 - 9.6 12/29/2021 DTL x10(9)/L 12:02 PM PIECE WORK CHECKER Neutrophils 3.08 1.56 - 12/29/2021 DTL 6.45 12:02 PM PIECE WORK CHECKER x10(9)/L Lymphocytes 1.39 0.95 - 12/29/2021 DTL 3.07 12:02 PM PIECE WORK CHECKER x10(9)/L Monocytes 0.43 0.26 - 12/29/2021 DTL 0.81 12:02 PM PIECE WORK CHECKER x10(9)/L Eosinophils 0.17 0.03 - 12/29/2021 DTL 0.48 12:02 PM PIECE WORK CHECKER x10(9)/L Basophils 0.05 0.01 - 12/29/2021 DTL 0.08 12:02 PM PIECE WORK CHECKER x10(9)/L Specimen Anatomical Collection Method Collection Time Receive d Time (Source) Location / / Volume Laterality Blood (Blood, 12/29/2021 11:34 12/29/2021 Venous) AM PIECE WORK CHECKER 11:54 AM PIECE WORK CHECKER Alfredo Kamara LAB BLOOD ADD-ON Performing Organization Address City/State/ZIP Code Phon e Number [facility] - [address] [place], [place] [address] [place] [address] Laboratories-[facility] [address] SARS Coronavirus 2, Molecular Detection, PCR, Varies Asymptomatic (12/29/2021 11:11 AM PIECE WORK CHECKER) [facility] Method Time Signature COVID-19, Swab, 12/29/2021 DTL PCR, Source Nasopharynx 4:19 PM PIECE WORK CHECKER COVID-19, Undetected Undetected 12/29/2021 DTL PCR, Result 4:19 PM PIECE WORK CHECKER Comment: SARS-CoV-2 RNA absent. This result does not rule out COVID-19 in the patient, as the sensitivity of the test depends o n the timing of the specimen collection and quality of the specimen. Result should be correlated with patient's history and clinical presentat ion. ----ADDITIONAL INFORMATION---- This RT-PCR test using the EZDOCTOR SARS-Co V-2 Assay ( [employer].) performed on the EZDOCTOR Two Module System has received Emergency Use Authorization (EUA) by the U.S. Food and Drug Administration, and is modified from the optomechanical engineer's instructions with a bridging study. Performance characteristics were verifie d by [facility] in a manner consistent with CLIA requirements. Visit the CDC website: https://www.cdc.g ov/coronavirus/ for the most recent guidelines on [facility] virus testing. Fact Sheet for Healthcare Providers: https://www.fda.gov/media/129870/downloa d Fact Sheet for Patients: https://www.fda.gov/media/909301/downloa d Specimen Anatomical Collection Method Collection Time Receive d Time (Source) Location / / Volume Laterality Varies 12/29/2021 11:11 12/29/2021 (Nasopharynx) AM PIECE WORK CHECKER 12:03 PM PIECE WORK CHECKER Alfredo Kamara LAB MICROBIOLOGY - GENERAL O RDERABLES Performing Organization Address City/State/ZIP Code Phon e Number [facility] - 200 [place], [place] [address] [facility] [place] [address] Laboratories-[facility] [address] DX Shoulder Left 2+ Views (12/29/2021 10:30 AM PIECE WORK CHECKER) Anatomical Region Laterality Modality Upper Extremity, Shoulder, Musculoskeletal RST LOS, Left Digital Radiography Musculoskeletal ARZ LOS, Muskuloskeletal FLA LOS Specimen (Source) Anatomical Collection Method Collection Time Re ceived Time Location / / Volume Laterality 12/29/2021 10:53 AM PIECE WORK CHECKER Impressions 12/29/2021 10:57 AM PIECE WORK CHECKER Demineralization. Left shoulder arthroplasty revision to a reverse TSA. Developing lucency about the glenoi d component screws when compared back to 11/13/20, compatible with loosening. Pre sumed distal clavicle resection. Incompletely imaged instrumented spinal fusion from the upper cervical spine to the upper thoracic spine. Spinal cord st imulator. At least one old healed left posterior rib fracture. Narrative 12/29/2021 10:57 AM PIECE WORK CHECKER EXAM: ??DX SHOULDER LEFT 2+ VIEWS Procedure [...]
--- OUTSIDE RECORDS SUMMARY | 2022-08-01 07:45 | XMS_ITS | Encounter Summary ---
:1965 Author Organization [facility] Address [address] [place] [address] Care Team Providers Name Role Phone Unavailable Primary Care Provider Unavailable Reason for Visit Reason Comments Michel Encounter Details Date Type Department Care Team Description 11/25/2021 Clinical Communication Department of Chani Benjamin Neurologic Surgery in Lilian Jang, [place], [place] Ph.D. [address] [facility] 200 [place] [address] [phone] Social History Tobacco Use Types Packs/Day Years [...] you attend mormon or Patient refused 2021 orthodox services? Do [...] for your help. Boris Neurosurgery Appointment Office [phone] Please respond to the RST YEYO SCHEDULING Pool Thank You NI SECRETARY documented in this encounter Plan of Treatment Not on filedocumented as of this encounter Visit Diagnoses Not on filedocumented in this encounter Additional Health Concerns Assessment Noted Time PHQ-9 Depression Total Score: 16 02/11/2021 12:00 AM C DT documented as of this encounter
--- OUTSIDE RECORDS SUMMARY | 2022-08-01 07:45 | XMS_ITS | Encounter Summary ---
:1965 Author Organization [facility] Address 200 [place] [address] Care Team Providers Name Role Phone Unavailable Primary Care Provider Unavailable Reason for Referral Outpatient (Routine) - Closed Specialty Diagnoses / Procedures Referred By Contact Refer red To Contact Diagnoses Painful Total Joint Arthroplasty Initial (HCC) Alfredo Herrera Roc[place] er Region Procedures US Major Joint Aspiration and or Injection Left O.P.A.-C. 200 [place] [address] Referral ID Status Reason Start Date Expiration Date Visits Requ ested Visits Authorized [id number] Closed 09/07/2021 09/07/2022 1 1 Outpatient (Routine) - Closed Specialty Diagnoses / Procedures Referred By Contact Refer red To Contact Diagnoses Painful Total Joint Arthroplasty Initial (HCC) Alfredo Herrera Roc[place] er Region Procedures US Musculoskeletal Shoulder Left O.P.A.-C. 200 [place] [address] Referral ID Status Reason Start Date Expiration Date Visits Requ ested Visits Authorized [id number] Closed 09/07/2021 09/07/2022 1 1 Reason for Visit Outpatient (Routine) - Closed Specialty Diagnoses / Procedures Referred By Contact Refer red To Contact Diagnoses Painful Total Joint Arthroplasty Initial (HCC) Alfredo Herrera Roc[place] er Region Procedures US Major Joint Aspiration and or Injection Left O.P.A.-C. [address] [place] [phone] Referral ID Status Reason Start Date Expiration Date Visits Requ ested Visits Authorized [id number] Closed 09/07/2021 09/07/2022 1 1 Encounter Details Date Type Department Care Team Description 09/25/2021 Hospital Encounter Department of Alfredo Herrera Total Joint Radiology, Lebron Gonzales.P.A.-CBritton Arthroplasty Initial Building, in [address] [place] [address] ([facility]) [facility] [address] [place] [address] [place], [place] (Work) [phone] Social History Tobacco Use [...] you attend anabaptism or Patient refused 2021 bahai services? Do [...] Differential, Body Fluid (09/25/2021 1:48 PM CDT) [facility] Method Time Signature Fluid Type Left 09/25/2021 DHPM Shoulder 4:50 PM CDT Gross Slightly 09/25/2021 DHPM Appearance bloody 4:50 PM CDT Total [address] /mcL 09/25/2021 DHPM Nucleated 4:50 PM CDT Cells Comment: ----REFERENCE VALUE---- Synovial: <150 /mcL Peritoneal: <500 /mcL Pleural: <500 /mcL Pericardial: <500 /mcL ----ADDITIONAL INFORMATION---- This test has been modified from the man ufacturer's instructions. Its performance characteri stics were determined by [facility] in a manner co nsistent with CLIA [...] seen. Reviewed by: Tech 09/25/2021 7:38 PM [facility] CDT Specimen Anatomical Collection Method Collection Time Receive d Time (Source) Location / / Volume Laterality Fluid 09/25/2021 1:48 PM 3:27 CDT PM CDT Alfredo Kamara LAB BODY FLUIDS AND STOOLS O PATERABLES Performing Organization Address City/[facility] Phon e Number [facility] - [address] [place], [place] [address] [facility] [place] [address] [facility] [address] [facility] Acid Fast Smear For Mycobacterium (09/25/2021 1:48 PM CDT) [facility] Method Time Signature Acid Fast Smear Negative. 09/26/2021 DTL For Mycobacterium 2:58 PM CDT Specimen Anatomical Collection Method Collection Time Receive d Time (Source) Location / / Volume Laterality Synovial Fluid, 09/25/2021 1:48 PM 2020 3:42 Left Shoulder CDT PM CDT Comment: Specimen Source Site: Fluid Narrative [facility] - [facility] - 09/26/2021 2:58 PM CDT Fungal and Mycobacteria specimens plated for culture, volume inadequate for optimal recovery. Alfredo Kamara LAB MICROBIOLOGY - GENERAL O PATERASARAH Performing Organization Address City/[facility] Code Phon e Number [facility] - [address] [place], [place] [address] [facility] [place] [address] Gram Stain (09/25/2021 1:48 PM CDT) [facility] Method Time Signature Gram Stain No organisms [...] [facility] - [address] [place], [place] [address] [facility] [place] [address] Laboratories-[facility] [address] (ABNORMAL) Bacterial Culture, Aerobic + Susc (09/25/2021 1:48 PM CDT) Component Value Ref Test Analysis Performed At Patholo gist Range Method Time Signature Bacterial STAPHYLOCOCCUS EPIDERMIDIS 09/30/2021 DT L Culture, One [place] 2:35 PM CDT Aerobic + (A) Susc Comment: Semi-Urgent Result. Semi-Urgent This is a semi-urgent result [facility] - ([place]) [facility] S Specimen Anatomical Collection Method Collection Time Receive d Time (Source) Location / / Volume Laterality Fluid (Synovial 09/25/2021 1:48 PM 2020 3:42 Fluid, Left CDT PM CDT Shoulder) Comment: Specimen Source Site: Fluid Narrative [facility] - [facility] - 09/30/2021 2:35 PM CDT [...] - GENERAL O RDSONIA Performing Organization Address City/[facility] Phon e Number [facility] - 200 [place], [place] [address] [place], [place] [phone] [place] [address] Bacterial Culture, Anaerobic + Susc (09/25/2021 1:48 PM CDT) [employer] Method Time Signature Bacterial No growth 10/09/2021 DTL Culture, after 14 7:41 AM BREAKFAST MANAGER Anaerobic + days of Susc incubation. Specimen Anatomical Collection Method Collection Time Receive d Time (Source) Location / / Volume Laterality Fluid (Synovial 09/25/2021 1:48 PM 2020 3:42 Fluid, Left CDT PM CDT Shoulder) Comment: Specimen Source Site: Fluid Narrative [facility] - 10/09/2021 7:41 AM BREAKFAST MANAGER Fungal and Mycobacteria specimens plated for culture, volume inadequate for optimal recovery. Alfredo Kamara LAB MICROBIOLOGY - GENERAL O MARY Performing Organization Address [facility] Phon e Number [facility] - [address] (ABNORMAL) [facility] Bacteria PCR+Sequencing (09/25/2021 1:48 PM CDT) Component Value Ref Test Analysis Performed At [facility] Method Time Signature Broad Range This test was developed and its performance characteri stics 10/06/2021 DTL Bacteria determined by [facility] in a manner consistent with 1:24 PM BREAKFAST MANAGER PCR+Sequencin CLIA requirements. This test has not been cleared or g approved by the U.S. Food and Drug Administration. (A) Broad Range STAPHYLOCOCCUS EPIDERMIDIS 10/06/2021 DTL Bacteria DNA detected 1:24 PM BREAKFAST MANAGER PCR+Sequencin (A) g Comment: Semi-Urgent Result. Semi-Urgent This is a semi-urgent result [facility] - () [facility] Specimen Anatomical Collection Method Collection Time Receive d Time (Source) Location / / Volume Laterality Fluid (Synovial 09/25/2021 1:48 PM 2020 3:42 Fluid, Left CDT PM CDT Shoulder) Comment: Specimen Source Site: Fluid Narrative [facility] - 10/06/2021 1:24 PM BREAKFAST MANAGER Fungal and Mycobacteria specimens plated for culture, volume inadequate for optimal recovery. Alfredo Kamara LAB MICROBIOLOGY - GENERAL O RDBRADLEYBLES Performing Organization Address [facility] Phon e Number [facility] - [address] [place] [address] [address] Crystal Identification, Synovial Fluid (09/25/2021 1:48 PM CDT) Analysis Performed At [facility] Time Signature Crystal ID, None seen None seen 09/25/2021 [facility] Synovial Fl 4:56 PM CDT Reviewed by: Tech 09/25/2021 [facility] 4:56 PM CDT Specimen Anatomical Collection Method Collection Time Receive d Time (Source) Location / / Volume Laterality Fluid (Synovial 09/25/2021 1:48 PM 2020 3:27 Fluid, Left CDT PM CDT Shoulder) Alfredo Kamara LAB BODY FLUIDS AND STOOLS O RDERABLES Performing Organization Address City/[facility] Code Phon e Number [facility] - 200 [place], [place] [address] Fungal Culture, Routine (09/25/2021 1:48 PM CDT) [facility] gist Method Time Signature Fungal No growth 10/20/2021 [facility] Culture, after 24 1:01 AM BREAKFAST MANAGER Routine days of incubation. Specimen Anatomical Collection Method Collection Time Receive d Time (Source) Location / / Volume Laterality Fluid (Synovial 09/25/2021 1:48 PM 2020 3:42 Fluid, Left CDT PM CDT Shoulder) Comment: Specimen Source Site: Fluid Narrative [facility] - 10/20/2021 1:01 AM BREAKFAST MANAGER Fungal and Mycobacteria specimens plated for culture, volume inadequate for optimal recovery. Alfredo Foote. LAB MICROBIOLOGY - GENERAL O RDERABLES Performing Organization Address [facility] Phon e Number [facility] - [address] Mycobacterial Culture (09/25/2021 1:48 PM CDT) [facility] gist Method Time Signature Mycobacterial No growth 11/07/2021 DTL Culture after 42 1:03 AM BREAKFAST MANAGER days of incubation . Specimen Anatomical Collection Method Collection Time Receive d Time (Source) Location / / Volume Laterality Fluid (Synovial 09/25/2021 1:48 PM 2020 3:42 Fluid, Left CDT PM CDT Shoulder) Comment: Specimen Source Site: Fluid Narrative [facility] - [facility] - 11/07/2021 1:03 AM BREAKFAST MANAGER Fungal and Mycobacteria specimens plated for culture, volume inadequate for optimal recovery. Alfredo Kamara LAB MICROBIOLOGY - GENERAL O MARY Performing Organization Address [facility] Phon e Number [facility] - [id number] [place] [address] documented in this encounter Visit Diagnoses Diagnosis [...]
--- OUTSIDE RECORDS SUMMARY | 2022-08-01 07:45 | XMS_ITS | Encounter Summary ---
:1965 Author Organization [facility] Address [address] [place] [address] Care Team Providers Name Role Phone Unavailable Primary Care Provider Unavailable Encounter Details Date Type Department Care Team Description 09/23/2021 Hospital Encounter Department of Alfredo Herrera Total Joint Laboratory Medicine A, O.PEmilioCBritton Arthroplasty Initial and Pathology, [address] [place] [address] ([facility]) [facility] in [place] [facility] [place] [facility] [address] [place] [phone] 200 [facility] (Work) [place], [place] [phone] [address] (Fax) [phone] Social History Tobacco Use Types Packs/Day Years [...] you attend rastafari or Patient refused 2021 druze services? Do [...] (ABNORMAL) Sedimentation Rate (09/23/2021 9:07 AM CDT) [facility] Method Time Signature Sedimentation 31 (H) 2 - 22 09/23/2021 DTL Rate, B mm/h 10:46 AM CDT Specimen Anatomical Collection Method Collection Time Receive d Time (Source) Location / / Volume Laterality Blood (Blood, 09/23/2021 9:07 AM 09/23/20 9:30 Venous) CDT AM CDT Alfredo Kamara LAB BLOOD ADD-ON Performing Organization Address City/[facility] Code Phon e Number [facility] - 200 [place], [place] [address] [place] [address] [place] [address] CRP (C-Reactive Protein) (09/23/2021 9:07 AM CDT) P athologist Signature C-Reactive <3.0 <=8.0 mg/L 09/23/2021 DTL Protein (CRP), 10:30 AM CDT S Specimen Anatomical Collection Method Collection Time Receive d Time (Source) Location / / Volume Laterality Blood (Blood, 09/23/2021 9:07 AM 09/23/20 9:57 Venous) CDT AM CDT Alfredo Kamara LAB BLOOD ADD-ON Performing Organization Address City/[facility] Code Phon e Number [facility] - 200 [place], [place] [address] [facility] [place] [address] Laboratories-[address] (ABNORMAL) CBC with Differential, Blood (09/23/2021 9:07 AM CDT) [facility] Method Time Signature Hemoglobin 10.1 (L) [...] Address City/State/ZIP Code Phon e Number [facility] - [address] [place], [place] [address] [facility] [place] [address] Laboratories-[facility] [address] documented in this encounter Visit Diagnoses Diagnosis Painful Total Joint Arthroplasty Initial (HCC) documented in this encounter Additional Health Concerns Assessment Noted Time PHQ-9 Depression Total Score: 16 02/11/2021 12:00 AM C DT documented as of this encounter
--- OUTSIDE RECORDS SUMMARY | 2022-08-01 07:46 | XMS_ITS | Encounter Summary ---
:1965 Author Organization [facility] Address [address] [place] [address] Care Team Providers Name Role Phone Unavailable Primary Care Provider Unavailable Reason for Visit Outpatient (Routine) - Closed Specialty Diagnoses / Procedures Referred By Contact Refer red To Contact Neurological Surgery Jeannette [facility] [place] [facility] [place] M.D. [address] [place] [phone] Referral ID Status Reason Start Date Expiration Date Visits Requ ested Visits Authorized [id number] Closed 02/17/2021 02/17/2022 1 1 Encounter Details Date Type Department Care Team Description 03/12/2021 Office Visit Department of Gonzalez Benjamin Neurologic Surgery in Lilian Jang, Cinthya castorena ([facility]) (Primary [place], [place] Ph.D. Dx) [address] [place] [address] [place] [phone] Social History Tobacco Use Types Packs/Day [...] you attend episcopal or Patient refused 2021 yazdanism services? Do you belong to any clubs or No 05/17/2022 organizations such as episcopal groups, unions, [employer] or athletic groups, or school groups? How [...]
--- OUTSIDE RECORDS SUMMARY | 2022-08-01 07:46 | XMS_ITS | Encounter Summary ---
:1965 Author Organization [facility] Address [address] [place] [address] Care Team Providers Name Role Phone Unavailable Primary Care Provider Unavailable Reason for Visit Reason Comments Pre-visit Intake Encounter Details Date Type Department Care Team Description 03/11/2021 Clinical Communication Department of Sourav Pre- visit Intake Neurologic Surgery Lilian Jang, in [place], Ph.D. [place] [address] [place] [address] [phone] Social History Tobacco Use Types Packs/Day Years [...] you attend islam or Patient refused 2021 jehovah's witness services? [...]
--- OUTSIDE RECORDS SUMMARY | 2022-08-01 07:46 | XMS_ITS | Encounter Summary ---
:1965 Author Organization [facility] Address [address] [place] [address] Care Team Providers Name Role Phone Unavailable Primary Care Provider Unavailable Encounter Details Date Type Department Care Team Description 03/11/2021 Clinical Communication Department of Ana Segura Orthopedic Surgery in [place], [place] [address] [place] [phone] Social History Tobacco Use Types Packs/Day Years [...] you attend denominational or Patient refused 2021 mandaeism services? Do [...] Patient would like to be seen in [place]. Referral line to [place] provided to angela batista. Patient aware she will call for apptointment. Telephone Encounter - Jerica Gee L.P.N. - 03/13/2021 9:09 AM CDT Left message to call clinic back. Needs to see a hand surgeon. Telephone Encounter - Christal Abraham L.P.N. - 03/12/2021 3:21 PM CDT Left message for patient to call back. She can contact [facility], [place], or sarath frye if she choses. Telephone Encounter - Clemente Schofield M.D. - 03/12/2021 11:23 AM CDT She should see a hand surgeon Telephone Encounter - Esperanza Stratton - 03/11/2021 9:33 AM CDT Reason for Communication: Patient is calling in stating that she is being referred to be seen for a brake in her LEFT hand. Patient is stating that [facility] in [facility] is requesting for patient to be seen by our orthopedic department. Patient is wanting to be seen in [place]. Unable to find any encounters regarding a [...]
--- OUTSIDE RECORDS SUMMARY | 2022-08-01 07:46 | XMS_ITS | Encounter Summary ---
:1965 Author Organization [facility] Address [address] [place] [address] Care Team Providers Name Role Phone Unavailable Primary Care Provider Unavailable Reason for Referral Outpatient (Routine) - Closed Specialty Diagnoses / Procedures Referred By Contact Refer red To Contact Diagnoses Dissociation Scapholunate Left Michael Downs M.D. [facility] Procedures ORS Cast Room Visit [address] [place] [phone] Referral ID Status Reason Start Date Expiration Date Visits Requ ested Visits Authorized [id number] Closed 05/08/2021 05/08/2022 1 1 Reason for Visit Reason Comments Follow-up Outpatient (Routine) - Closed Specialty Diagnoses / Procedures Referred By Contact Refer red To Contact Diagnoses Dissociation Scapholunate Left Michael Downs M.D. [facility] Procedures ORS Cast Room Visit [address] [place] [phone] Referral ID Status Reason Start Date Expiration Date Visits Requ ested Visits Authorized [id number] Closed 05/08/2021 05/08/2022 1 1 Encounter Details Date Type Department Care Team Description 05/08/2021 Hospital Encounter Department of Paul Downs M.D. [address] [place] [phone] Dissociation Orthopedic Surgery Dario Noel M.D. [address] [place] [phone] Scapkimiunate Left in [place], [place] [address] [place] [address] Social History Tobacco Use Types Packs/Day Years [...] you attend sikhism or Patient refused 2021 bahai services? Do [...] short-arm cast was applied by the castroom urgent care technician - The patient is nonweightbearing bearing [...]
--- OUTSIDE RECORDS SUMMARY | 2022-08-01 07:46 | XMS_ITS | Encounter Summary ---
:1965 Author Organization [facility] Address [address] [place] [address] Care Team Providers Name Role Phone Unavailable Primary Care Provider Unavailable Reason for Visit Reason Comments Med Refill Encounter Details Date Type Department Care Team Description 06/04/2021 Refill Department of Orthopedic Pulos, Dario Alejo M.D. Med Refill Surgery in [address] [phone] [place] [address] [place] [phone] Social History Tobacco Use Types Packs/Day Years [...] you attend bahai or Patient refused 2021 restorationism services? Do [...]
--- OUTSIDE RECORDS SUMMARY | 2022-08-01 07:46 | XMS_ITS | Encounter Summary ---
:1965 Author Organization [facility] Address [address] [place] [address] Care Team Providers Name Role Phone Unavailable Primary Care Provider Unavailable Reason for Referral MRI/CAT/PET Scan (Routine) - Closed Specialty Diagnoses / Procedures Referred By Contact Refer red To Contact Radiology Diagnoses Pain Wrist Left Michael Noble Jr., [facility] Procedures MR Wrist Left without IV Contrast P.A.-C. [address] [place] [address] [phone] Referral ID Status Reason Start Date Expiration Date Visits Requ ested Visits Authorized [id number] Closed 03/17/2021 03/17/2022 1 1 Reason for Visit MRI/CAT/PET Scan (Routine) - Closed Specialty Diagnoses / Procedures Referred By Contact Refer red To Contact Radiology Diagnoses Pain Wrist Left Michael Noble Jr., [facility] Procedures MR Wrist Left without IV Contrast P.A.-C. [address] [place] [address] [phone] Referral ID Status Reason Start Date Expiration Date Visits Requ ested Visits Authorized [id number] Closed 03/17/2021 03/17/2022 1 1 Encounter Details Date Type Department Care Team Description 03/24/2021 Hospital Encounter Department of Michael Noble Wrist Left Radiology, Hema Perez [facility], in [address] [place] [address] [place], [place] [phone] [place], [place] [phone] (Work) [phone] Social History Tobacco Use Types Packs/Day Years [...] you attend mormonism or Patient refused 2021 presybeterian services? Do [...]
--- OUTSIDE RECORDS SUMMARY | 2022-08-01 07:46 | XMS_ITS | Encounter Summary ---
:1965 Author Organization [facility] Address [address] [place] [address] Care Team Providers Name Role Phone Unavailable Primary Care Provider Unavailable Reason for Referral Outpatient (Routine) - Closed Specialty Diagnoses / Procedures Referred By Contact Refer red To Contact Diagnoses Dissociation Scapholunate Left Michael Downs M.D. [facility] Procedures ORS Cast Room Visit [address] [place] [phone] Referral ID Status Reason Start Date Expiration Date Visits Requ ested Visits Authorized [id number] Closed 05/08/2021 05/08/2022 1 1 Outpatient (Routine) - Closed Specialty Diagnoses / Procedures Referred By Contact Refer red To Contact Diagnoses Dissociation Scapholunate Left Michael Downs M.D. [facility] Procedures ORS Cast Room Visit [address] [place] [phone] Referral ID Status Reason Start Date Expiration Date Visits Requ ested Visits Authorized [id number] Closed 05/08/2021 05/08/2022 1 1 Reason for Visit Reason Onset Date Comments Left Without Being Seen 07/17/2021 Outpatient (Routine) - Closed Specialty Diagnoses / Procedures Referred By Contact Refer red To Contact Orthopedic Surgery Michael Noble [facility] [address] [place] [phone] Referral ID Status Reason Start Date Expiration Date Visits Requ ested Visits Authorized [id number] Closed 05/04/2021 05/04/2022 1 1 Encounter Details Date Type Department Care Team Description 05/08/2021 Office Visit Department of Pullazaro, Dario Alejo, Dissocia tion Scapholunate Left (Primary Dx); Orthopedic Surgery in M.D. Procedure And Treatment Not Carried Out Due To Patient Leaving Prior To Being Seen By Health Care Provider [place], [place] [address] [facility] 200 [place] [phone] [phone] Social History Tobacco Use Types Packs/Day Years [...] you attend anabaptist or Patient refused 2021 mandaen services? Do [...]
--- OUTSIDE RECORDS SUMMARY | 2022-08-01 07:46 | XMS_ITS | Encounter Summary ---
:1965 Author Organization [facility] Address [address] [place] [address] Care Team Providers Name Role Phone Unavailable Primary Care Provider Unavailable Reason for Referral Outpatient (Routine) - Closed Specialty Diagnoses / Procedures Referred By Contact Refer red To Contact Diagnoses Dissociation Scapholunate Left Michael Downs M.D. [facility] Procedures ORS Cast Room Visit [address] [place] [phone] Referral ID Status Reason Start Date Expiration Date Visits Requ ested Visits Authorized [id number] Closed 03/24/2021 03/24/2022 1 1 Reason for Visit Reason Comments Follow-up Outpatient (Routine) - Closed Specialty Diagnoses / Procedures Referred By Contact Refer red To Contact Diagnoses Dissociation Scapholunate Left Michael Downs M.D. [facility] Procedures ORS Cast Room Visit [address] [place] [phone] Referral ID Status Reason Start Date Expiration Date Visits Requ ested Visits Authorized [id number] Closed 03/24/2021 03/24/2022 1 1 Encounter Details Date Type Department Care Team Description 03/24/2021 Hospital Encounter Department of Paul Downs M.D. [address] [place] [address] [phone] Dissociation Orthopedic Surgery Dario Noel M.D. [address] [place] [phone] Scapkimiunate Left in [place], [place] [address] [place] [address] Social History Tobacco Use Types Packs/Day Years [...] you attend anglican or Patient refused 2021 church services? Do [...] with 70/60 degrees on the contralateral side. Drywall Worker strength of 10 kg compared to 23 [...] short-arm cast was applied by the castroom commercial maintenance technician - The patient is nonweightbearing bearing [...] 70/60 degrees on the contr alateral side. ??Drywall Worker strength of 10 kg compared to 23 [...] ??The clenched fist view was obtained of [employer] hands, but unfortunately is difficult to assess [...] cast was applied by the kevin garcia commercial maintenance technician - The patient is nonweightbearing bearin [...]
--- OUTSIDE RECORDS SUMMARY | 2022-08-01 07:46 | XMS_ITS | Encounter Summary ---
:1965 Author Organization [facility] Address [address] [place] [address] Care Team Providers Name Role Phone Unavailable Primary Care Provider Unavailable Reason for Visit Reason Comments Nicotine Dependence Encounter Details Date Type Department Care Team Description 07/24/2021 Clinical Communication Department of [facility], Carolyn Mccarthy cotine Dependence Nicotine M.S., Dependence, C.T.T.S., [facility], L.P.C.C. in [address] [place] [phone] [place], [place] [phone] (Work) [phone] Social History Tobacco Use Types Packs/Day Years [...] you attend christianity or Patient refused 2021 yazidism services? Do [...]
--- OUTSIDE RECORDS SUMMARY | 2022-08-01 07:46 | XMS_ITS | Encounter Summary ---
:1965 Author Organization [facility] Address [address] [place] [address] Care Team Providers Name Role Phone Unavailable Primary Care Provider Unavailable Reason for Referral Outpatient (Routine) - Closed Specialty Diagnoses / Procedures Referred By Contact Refer red To Contact Orthopedic Surgery Dario Noel M .D. [facility] 200 [place] [address] Referral ID Status Reason Start Date Expiration Date Visits Requ ested Visits Authorized [id number] Closed 06/08/2021 06/08/2022 1 1 Physical Therapy (Routine) - Closed Specialty Diagnoses / Procedures Referred By Contact Refer red To Contact Diagnoses Dissociation Scapholunate Left Dario Noel M.D. [facility] Procedures PT or OT eval and treat (first available) [address] [place] [address] [phone] Referral ID Status Reason Start Date Expiration Date Visits Requ ested Visits Authorized [id number] Closed 06/08/2021 06/08/2022 99 99 Outpatient (Routine) - Closed Specialty Diagnoses / Procedures Referred By Contact Refer red To Contact Diagnoses Dissociation Scapholunate Left Michael Downs M.D. [facility] Procedures ORS Cast Room Visit [address] [place] [phone] Referral ID Status Reason Start Date Expiration Date Visits Requ ested Visits Authorized [id number] Closed 05/08/2021 05/08/2022 1 1 Reason for Visit Reason Comments Cast Check Follow-up Outpatient (Routine) - Closed Specialty Diagnoses / Procedures Referred By Contact Refer red To Contact Diagnoses Dissociation Scapholunate Left Michael Downs M.D. [facility] Procedures ORS Cast Room Visit [address] [place] [address] [phone] Referral ID Status Reason Start Date Expiration Date Visits Requ ested Visits Authorized [id number] Closed 05/08/2021 05/08/2022 1 1 Encounter Details Date Type Department Care Team Description 06/08/2021 Hospital Encounter Department of Paul oDwns M.D. [address] [place] [address] [phone] Dissociation Orthopedic Surgery Dario Noel M.D. [address] [place] [phone] Scapholunate Left in [place], [place] [address] [place] [phone] Social History Tobacco Use Types Packs/Day Years [...] you attend anabaptism or Patient refused 2021 presybeterian services? Do [...]
--- OUTSIDE RECORDS SUMMARY | 2022-08-01 07:46 | XMS_ITS | Encounter Summary ---
:1965 Author Organization [facility] Address [address] [place] [address] Care Team Providers Name Role Phone Unavailable Primary Care Provider Unavailable Reason for Referral Outpatient (Routine) - Closed Specialty Diagnoses / Procedures Referred By Contact Refer red To Contact Diagnoses Dissociation Scapholunate Left Michael Downs M.D. [facility] Procedures ORS Cast Room Visit [address] [place] [phone] Referral ID Status Reason Start Date Expiration Date Visits Requ ested Visits Authorized [id number] Closed 03/24/2021 03/24/2022 1 1 Outpatient (Routine) - Closed Specialty Diagnoses / Procedures Referred By Contact Refer red To Contact Diagnoses Dissociation Scapholunate Left Michael Downs M.D. [facility] Procedures ORS Cast Room Visit [address] [place] [address] Referral ID Status Reason Start Date Expiration Date Visits Requ ested Visits Authorized [id number] Closed 03/24/2021 03/24/2022 1 1 Reason for Visit Reason Comments Pain Appointment Request (Routine) - Closed Specialty Diagnoses / Procedures Referred By Contact Refer red To Contact Orthopedic Surgery Diagnoses Fracture Wrist Hand Closed Initial Referral ID Status Reason Start Date Expiration Date Visits Requ ested Visits Authorized [id number] Closed 03/16/2021 03/16/2022 1 1 Encounter Details Date Type Department Care Team Description 03/24/2021 Admin Visit Department of Dario Noel Dissocia tion Orthopedic Surgery in M.D. Scapholunate Left [place], [place] 200 [facility] (Primary Dx) [address] [place] [phone] [phone] Social History Tobacco Use Types Packs/Day Years [...] you attend religious or Patient refused 2021 confucianism services? Do [...] 70/60 degrees on the contr alateral side. ??Contingents Supervisor strength of 10 kg compared to [...] cast was applied by the kevin garcia photo lab technician - The patient is nonweightbearing bearin [...]
--- OUTSIDE RECORDS SUMMARY | 2022-08-01 07:46 | XMS_ITS | Encounter Summary ---
:1965 Author Organization [facility] Address [address] [place] [address] Care Team Providers Name Role Phone Unavailable Primary Care Provider Unavailable Reason for Visit Reason Comments Pre-visit Intake Encounter Details Date Type Department Care Team Description 04/15/2021 Clinical Communication Department of Robert Diehl e-visit Intake Neurology in Lilian Celaya [place], [facility] [place], [place] [address] [place] [phone] [place], [place] [phone] (Work) [phone] Social History Tobacco Use Types Packs/Day Years [...] you attend buddhism or Patient refused 2021 hoahaoism services? Do [...]
--- OUTSIDE RECORDS SUMMARY | 2022-08-01 07:46 | XMS_ITS | Encounter Summary ---
:1965 Author Organization [facility] Address [address] [place] [address] Care Team Providers Name Role Phone Unavailable Primary Care Provider Unavailable Reason for Visit Reason Comments Nicotine Dependence Encounter Details Date Type Department Care Team Description 03/10/2021 Clinical Communication Department of [facility], Carolyn Mccarthy cotine Dependence Nicotine M.S., Dependence, C.T.T.S., [facility], L.P.C.C. in [address] [place] [phone] [place], [place] [phone] (Work) [phone] Social History Tobacco Use Types Packs/Day Years [...] you attend mandaeism or Patient refused 2021 jain services? Do [...]
--- OUTSIDE RECORDS SUMMARY | 2022-08-01 07:46 | XMS_ITS | Encounter Summary ---
:1965 Author Organization [facility] Address [address] [place] [address] Care Team Providers Name Role Phone Unavailable Primary Care Provider Unavailable Reason for Visit Physical Therapy (Routine) - Closed Specialty Diagnoses / Procedures Referred By Contact Refer red To Contact Diagnoses Dissociation Scapholunate Left Dario Noel M.D. [facility] Procedures PT or OT eval and treat (first available) [address] [place] [phone] Referral ID Status Reason Start Date Expiration Date Visits Requ ested Visits Authorized [id number] Closed 06/08/2021 06/08/2022 99 99 Encounter Details Date Type Department Care Team Description 06/08/2021 Clinical Support Department of Physical German Noel M.D. [address] [place] [address] [phone] Pain Wrist Left (Primary Dx); Medicine and Veena Quevedo M.S., C.H.T., O.T. [address] [place] [phone] Dissociation Scapholunate Left Rehabilitation in [place], [place] [address] [place] [phone] Social History Tobacco Use Types Packs/Day [...] you attend sikhism or Patient refused 2021 mosque services? Do [...] (HCC) ??? Nicotine Dependence Unspecified ??? 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 Active Hand Exercises (Six Pack) DC6452. Active Wrist Exercises LP2430 Assessment Clinical Impression: The patient tolerated the [...]
--- OUTSIDE RECORDS SUMMARY | 2022-08-01 07:46 | XMS_ITS | Encounter Summary ---
:1965 Author Organization [facility] Address [address] [place] [address] Care Team Providers Name Role Phone Unavailable Primary Care Provider Unavailable Reason for Visit Reason Comments pain medication Encounter Details Date Type Department Care Team Description 06/04/2021 Clinical Communication Department of Pullazaro, Dario willard medication Orthopedic Surgery Lilian Alejo in [place], [facility] [place], [place] [address] [place] [phone] [place], [place] [phone] (Work) [phone] Social History Tobacco Use Types Packs/Day Years [...] you attend denominational or Patient refused 2021 church services? Do [...] meds/scripts. Patient would like a call - [phone] documented in this encounter Plan of Treatment Not on filedocumented as of this encounter Visit Diagnoses Not on filedocumented in this encounter Additional Health Concerns Assessment Noted Time PHQ-9 Depression Total Score: 16 02/11/2021 12:00 AM C DT documented as of this encounter
--- OUTSIDE RECORDS SUMMARY | 2022-08-01 07:46 | XMS_ITS | Encounter Summary ---
:1965 Author Organization [facility] Address [address] [place] [address] Care Team Providers Name Role Phone Unavailable Primary Care Provider Unavailable Reason for Visit Reason Comments Pre-scheduling Questionnaire Hand Pre-Scheduling Qu estionnaire Encounter Details Date Type Department Care Team Description 03/16/2021 Clinical Department of Prescheduling, Pre-scheduli ng Communication Orthopedic Surgery Provider Question elizabeth ( in [place], Hand Pre-Sched uling [place] Questionnaire) [address] [place] [phone] Social History Tobacco Use Types Packs/Day Years [...] you attend anabaptist or Patient refused 2021 confucianist services? Do [...]
--- OUTSIDE RECORDS SUMMARY | 2022-08-01 07:46 | XMS_ITS | Encounter Summary ---
:[address] [facility] Address [address] [place] [address] Care Team Providers Name Role Phone Unavailable Primary Care Provider Unavailable Reason for Visit Reason Comments Nicotine Dependence Encounter Details Date Type Department Care Team Description 07/16/2021 Clinical Communication Department of [facility], Carolyn Mccarthy cotine Dependence Nicotine M.S., Dependence, C.T.T.S., [facility], L.P.C.C. in [address] [place] [phone] [place], [place] [phone] (Work) [phone] Social History Tobacco Use Types Packs/Day Years [...] attend jehovah's witness or Patient refused 2021 buddhism services? Do [...]
--- OUTSIDE RECORDS SUMMARY | 2022-08-01 07:46 | XMS_ITS | Encounter Summary ---
:1965 Author Organization [facility] Address [address] [place] [address] Care Team Providers Name Role Phone Unavailable Primary Care Provider Unavailable Reason for Referral Outpatient (Routine) - Closed Specialty Diagnoses / Procedures Referred By Contact Refer red To Contact Diagnoses Painful Total Joint Arthroplasty Initial (HCC) Alfredo Herrera [facility] Procedures US Major Joint Aspiration and or Injection Left O.P.A.-C. [address] [place] [address] Referral ID Status Reason Start Date Expiration Date Visits Requ ested Visits Authorized [id number] Closed 09/07/2021 09/07/2022 1 1 Outpatient (Routine) - Closed Specialty Diagnoses / Procedures Referred By Contact Refer red To Contact Diagnoses Painful Total Joint Arthroplasty Initial (HCC) Alfredo Herrera [facility] [facility] Procedures US Musculoskeletal Shoulder Left O.P.A.-C. [address] [place] [address] Referral ID Status Reason Start Date Expiration Date Visits Requ ested Visits Authorized [id number] Closed 09/07/2021 09/07/2022 1 1 MRI/CAT/PET Scan (Routine) - Closed Specialty Diagnoses / Procedures Referred By Contact Refer red To Contact Radiology Diagnoses Painful Total Joint Arthroplasty Initial (HCC) Alfredo Herrera [facility] Procedures CT Shoulder Left without IV Contrast O.P.A.-C. [address] [place] [address] Referral ID Status Reason Start Date Expiration Date Visits Requ ested Visits Authorized [id number] Closed 09/07/2021 09/07/2022 1 1 Reason for Visit Reason Comments Pre-visit Testing Orders L shldr - prev. TSA Encounter Details Date Type Department Care Team Description 09/07/2021 Clinical Communication Department of [facility], Pre- visit Testing Orthopedic Surgery Cyrus Souza M.D. Orders (L shldr - in [address] prev[address] TSA) [place], [place] [address] [place] [address] [place], [place] [phone] (Work) [phone] Social History Tobacco Use Types Packs/Day Years [...] you attend anabaptist or Patient refused 2021 hindu services? Do [...] PROCEDURES Mycobacterial Culture (09/25/2021 1:48 PM CDT) Phase Focus Method Time Signature Mycobacterial No growth 11/07/2021 DTL Culture after 42 1:03 AM [facility]IV[facility] days of incubation . Specimen Anatomical Collection Method Collection Time Receive d Time (Source) Location / / Volume Laterality Fluid (Synovial 09/25/2021 1:48 PM 2020 3:42 Fluid, Left CDT PM CDT Shoulder) Comment: Specimen Source Site: Fluid Narrative [facility] - 11/07/2021 1:03 AM [facility] Fungal and Mycobacteria specimens plated for culture, volume inadequate for optimal recovery. Alfredo Kamara LAB MICROBIOLOGY - GENERAL O RDERABLES Performing Organization Address City/State/ZIP Code Phon e Number [facility] - [address] [place], [place] [address] [facility] [place] [address] [facility] [address] Fungal Culture, Routine (09/25/2021 1:48 PM CDT) Phase Focus Method Time Signature Fungal No growth 10/20/2021 DTL Culture, after 24 1:01 AM [facility] Routine days of incubation. Specimen Anatomical Collection Method Collection Time Receive d Time (Source) Location / / Volume Laterality Fluid (Synovial 09/25/2021 1:48 PM 2020 3:42 Fluid, Left CDT PM CDT Shoulder) Comment: Specimen Source Site: Fluid Narrative [facility] - 10/20/2021 1:01 AM [facility] Fungal and Mycobacteria specimens plated for culture, volume inadequate for optimal recovery. Alfredo Kamara LAB MICROBIOLOGY - GENERAL O RDERABLES Performing Organization Address [facility] Phon e Number [facility] - [address] [place], [place] [address] [facility] [place] [address] [facility] Crystal Identification, Synovial Fluid (09/25/2021 1:48 PM CDT) [facility] Signature Crystal ID, None seen None seen 09/25/2021 [facility] Synovial Fl 4:56 PM CDT Reviewed by: Tech 09/25/2021 [facility] 4:56 PM CDT Specimen Anatomical Collection Method Collection Time Receive d Time (Source) Location / / Volume Laterality Fluid (Synovial 09/25/2021 1:48 PM 2020 3:27 Fluid, Left CDT PM CDT Shoulder) Alfredo Kamara LAB BODY FLUIDS AND STOOLS O RDERABLES Performing Organization Address City/[facility] Phon e Number [facility] - [address] [place], [place] [address] [place] [address] (ABNORMAL) Broad Range Bacteria PCR+Sequencing (09/25/2021 1:48 PM CDT) Component Value Ref Test Analysis Performed At [facility] gist Range Method Time Signature Broad Range This test was developed and its performance characteri stics 10/06/2021 DTL Bacteria determined by [facility] in a manner consistent with 1:24 PM [facility] DIRECT[facility]IV[facility] PCR+Sequencin CLIA requirements. This test has not been cleared or g approved by the U.S. Food and Drug Administration. (A) Broad Range STAPHYLOCOCCUS EPIDERMIDIS 10/06/2021 DTL Bacteria DNA detected 1:24 PM [facility] PCR+Sequencin (A) g Comment: Semi-Urgent Result. Semi-Urgent This is a semi-urgent result [facility] - () [facility] Specimen Anatomical Collection Method Collection Time Receive d Time (Source) Location / / Volume Laterality Fluid (Synovial 09/25/2021 1:48 PM 2020 3:42 Fluid, Left CDT PM CDT Shoulder) Comment: Specimen Source Site: Fluid Narrative [facility] - 10/06/2021 1:24 PM [facility] Fungal and Mycobacteria specimens plated for culture, volume inadequate for optimal recovery. Alfredo Kamara LAB MICROBIOLOGY - GENERAL O MARY Performing Organization Address [facility] Phon e Number [facility] - [address] Bacterial Culture, Anaerobic + Susc (09/25/2021 1:48 PM CDT) Phase Focus Method Time Signature Bacterial No growth 10/09/2021 DTL Culture, after 14 7:41 AM [facility] Anaerobic + days of Susc incubation. Specimen Anatomical Collection Method Collection Time Receive d Time (Source) Location / / Volume Laterality Fluid (Synovial 09/25/2021 1:48 PM 2020 3:42 Fluid, Left CDT PM CDT Shoulder) Comment: Specimen Source Site: Fluid Narrative [facility] - 10/09/2021 7:41 AM [facility] Fungal and Mycobacteria specimens plated for culture, volume inadequate for optimal recovery. Alfredo Kamara LAB MICROBIOLOGY - GENERAL O MARY Performing Organization Address City/[facility] Phon e Number [facility] - [address] (ABNORMAL) Bacterial Culture, Aerobic + Susc (09/25/2021 1:48 PM CDT) Component Value Ref Test Analysis Performed At Phase Focus Range Method Time Signature Bacterial STAPHYLOCOCCUS EPIDERMIDIS 09/30/2021 DT L Culture, One [place] 2:35 PM CDT Aerobic + (A) Susc Comment: Semi-Urgent Result. Semi-Urgent This is a semi-urgent result [facility] () [facility] Specimen Anatomical Collection Method Collection Time Receive d Time (Source) Location / / Volume Laterality Fluid (Synovial 09/25/2021 1:48 PM 2020 3:42 Fluid, Left CDT PM CDT Shoulder) Comment: Specimen Source Site: Fluid Narrative [facility] - 09/30/2021 2:35 PM CDT [...] City/State/ZIP Code Phon e Number [facility] - [address] [place], [place] [address] [place] [address] [facility] [address] Gram Stain [...] City/State/ZIP Code Phon e Number [facility] - [address] [place], [place] [address] [facility] [place] [address] [facility] [address] [...] (ABNORMAL) Sedimentation Rate (09/23/2021 9:07 AM CDT) [facility] gist Method Time Signature Sedimentation 31 (H) 2 - 22 09/23/2021 DTL Rate, B mm/h 10:46 AM CDT Specimen Anatomical Collection Method Collection Time Receive d Time (Source) Location / / Volume Laterality Blood (Blood, 09/23/2021 9:07 AM 09/23/20 21 9:30 Venous) CDT AM CDT Alfredo Kamara LAB BLOOD ADD-ON Performing Organization Address [facility] Phon e Number [facility] - [address] [place], [place] [address] [facility] [place] [address] CRP (C-Reactive Protein) (09/23/2021 9:07 AM CDT) P athologist Signature C-Reactive <3.0 <=8.0 mg/L 09/23/2021 DTL Protein (CRP), 10:30 AM CDT S Specimen Anatomical Collection Method Collection Time Receive d Time (Source) Location / / Volume Laterality Blood (Blood, 09/23/2021 9:07 AM 09/23/20 21 9:57 Venous) CDT AM CDT Alfredo Kamara LAB BLOOD ADD-ON Performing Organization Address [facility] Phon e Number [facility] - [address] [place], [place] [phone] [place] [address] (ABNORMAL) CBC with Differential, Blood (09/23/2021 9:07 [...] City/State/ZIP Code Phon e Number [facility] - [address] [place], [place] [address] [facility] [place] [address] [facility] [address] documented in [...]
--- OUTSIDE RECORDS SUMMARY | 2022-08-01 07:46 | XMS_ITS | Encounter Summary ---
:1965 Author Organization [facility] Address [address] [place] [address] Care Team Providers Name Role Phone Unavailable Primary Care Provider Unavailable Reason for Referral Outpatient (Routine) - Closed Specialty Diagnoses / Procedures Referred By Contact Refer red To Contact Orthopedic Surgery [facility] [address] [place] [phone] Referral ID Status Reason Start Date Expiration Date Visits Requ ested Visits Authorized [id number] Closed 05/04/2021 05/04/2022 1 1 Scheduling Instructions Pulos Encounter Details Date Type Department Care Team Description 05/04/2021 Orders Only Department of Orthopedic Mirna Noble Surgery in [facility] , [facility]. [address] [place] [phone] (Wo rk) Social History Tobacco Use Types [...] you attend taoist or Patient refused 2021 nondenominational services? Do you belong to any clubs or No 05/17/2022 organizations such as taoist groups, unions, fraCase Rover or athletic groups, or school groups? How [...]
--- OUTSIDE RECORDS SUMMARY | 2022-08-01 07:46 | XMS_ITS | Encounter Summary ---
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 [facility] Procedures CT Head Neck Angiogram with IV Contrast [address] [place], [place] [address] Referral ID Status Reason Start Date Expiration Date Visits Requ ested Visits Authorized [id number] Closed 02/17/2021 02/17/2022 1 1 Encounter Details Date Type Department Care Team Description 03/12/2021 Hospital Encounter Department of Jeannette Cote ebral Infarction Radiology, Severiano Souza M.D. Due To Embolism Building, in [address] [facility] Vertebral [place], [place] Artery (HCC) [place] [address] [phone] [place], [place] (Work) [phone] Social History Tobacco Use Types Packs/Day Years [...] you attend congregation or Patient refused 2021 jainism services? Do [...] N/A C omputed Tomography, Computed Neuroradiology [facility], Neuroradiology T omography [facility] Specimen (Source) Anatomical [...] ane urysms. 3. 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 Otherwise inaja of Wi llis is intact. 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 Otherwise inaja of Wi llis is intact. Dolichoectasia of [...] ane urysms. 3. 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 Jeannette NIELSON [...]
--- OUTSIDE RECORDS SUMMARY | 2022-08-01 07:46 | XMS_ITS | Encounter Summary ---
:1965 Author Organization [facility] Address [address] [place] [address] Care Team Providers Name Role Phone Unavailable Primary Care Provider Unavailable Reason for Visit Reason Comments Follow-up [facility] Patient Encounter Details Date Type Department Care Team Description 02/25/2021 Clinical [facility] jimmy Celaya M.D. Patient) [place], [facility] [address] [place], [place] [address] [place] [address] [place], [place] [phone] (Work) [phone] Social History Tobacco Use Types Packs/Day Years [...] you attend evangelical or Patient refused 2021 mu-ism services? Do [...] so I advised she report to the [place] [facility] as soon as possible to be [...]
--- OUTSIDE RECORDS SUMMARY | 2022-08-01 07:47 | XMS_ITS | Encounter Summary ---
:1965 Author Organization [facility] Address [address] [place] [address] Care Team Providers Name Role Phone Unavailable Primary Care Provider Unavailable Reason for Visit Reason Onset Date Comments saul med request 02/03/2021 Encounter Details Date Type Department Care Team Description 02/03/2021 Clinical Communication Department of [facility], trinidad Mccarthy med request Nicotine Dependence, M.S., C.T.T.S., [facility]. in [address] [place] [address] [place], [place] [phone] (Work) [phone] Social History Tobacco Use Types Packs/Day Years [...] you attend gnosticist or Patient refused 2021 restorationist services? 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
--- OUTSIDE RECORDS SUMMARY | 2022-08-01 07:47 | XMS_ITS | Encounter Summary ---
:1965 Author Organization [facility] Address [address] [place] [address] Care Team Providers Name Role Phone Unavailable Primary Care Provider Unavailable Encounter Details Date Type Department Care Team Description 02/05/2021 Orders Only Pharmacy Prior Auth RO Elsewhere, Pcp [phone] Social History Tobacco Use Types Packs/Day Years [...] you attend rastafarian or Patient refused 2021 christianity services? Do [...]
--- OUTSIDE RECORDS SUMMARY | 2022-08-01 07:47 | XMS_ITS | Encounter Summary ---
:1965 Author Organization [facility] Address [address] [place] [address] Care Team Providers Name Role Phone Unavailable Primary Care Provider Unavailable Reason for Visit Reason Comments [facility] Follow-up Encounter Details Date Type Department Care Team Description 02/19/2021 Clinical Communication Department of [facility] Neurology in Monica Alvarado R.N. Follow-up [place], [place] [address] [place] [address] Social History Tobacco Use Types [...] you attend catholic or Patient refused 2021 orthodox services? Do [...] reports she has not yet picked up [id number] ASA daily and 80 mg Atorvastatin at [...]
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
--- OUTSIDE RECORDS SUMMARY | 2022-08-01 07:47 | XMS_ITS | Encounter Summary ---
:1965 Author Organization [facility] Address [address] [place] [address] Care Team Providers Name Role Phone Unavailable Primary Care Provider Unavailable Encounter Details Date Type Department Care Team Description 02/03/2021 Orders Only Department of Neurology Leonides Kumar S troke ([facility]) (Primary in [facility] Lilian Dx) 200 [facility] 200 [place] [address] [phone] Social History Tobacco Use Types Packs/Day Years [...] you attend catholic or Patient refused 2021 denominational services? Do [...]
--- OUTSIDE RECORDS SUMMARY | 2022-08-01 07:47 | XMS_ITS | Encounter Summary ---
:1965 Author Organization [facility] Address [address] [place] [address] Care Team Providers Name Role Phone Unavailable Primary Care Provider Unavailable Encounter Details Date Type Department Care Team Description 02/11/2021 Ancillary Procedure Department of Radiology Ridge Vega in [facility] raúl Quintana 200 [facility] 200 [place] [phone] (Wo rk) Social History Tobacco Use Types [...] you attend holiness or Patient refused 2021 yarsani services? Do [...] bilateral thalami (series 3 image 36), bilateral CROSS TIE CUTTER 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 bilateral thalami (series 3 image 36), bilateral CROSS TIE CUTTER 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 bilateral thalami (series 3 image 36), bilateral CROSS TIE CUTTER 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 bilateral thalami (series 3 image 36), bilateral CROSS TIE CUTTER 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 bilateral thalami (series 3 image 36), bilateral CROSS TIE CUTTER 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 bilateral thalami (series 3 image 36), bilateral CROSS TIE CUTTER 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
--- OUTSIDE RECORDS SUMMARY | 2022-08-01 07:47 | XMS_ITS | Encounter Summary ---
:1965 Author Organization [facility] Address [address] [place] [address] Care Team Providers Name Role Phone Unavailable Primary Care Provider Unavailable Reason for Visit Reason Comments Vertigo and vision problems [facility] Encounter Details Date Type Department Care Team Description 02/18/2021 Clinical Communication Department of Fazal, Robert mendosa and vision Neurology in [place] Celaya problems ([facility]) [place], [facility] 1st [place], [place] [address] [place] [address] [place], [place] [phone] (Work) [phone] Social History Tobacco Use Types Packs/Day Years [...] encounter Miscellaneous Notes Telephone Encounter - Monica Shha R.N. - 02/19/2021 11:03 AM CDT See [...]
--- OUTSIDE RECORDS SUMMARY | 2022-08-01 07:47 | XMS_ITS | Encounter Summary ---
:1965 Author Organization [facility] Address [address] [place] [address] Care Team Providers Name Role Phone Unavailable Primary Care Provider Unavailable Encounter Details Date Type Department Care Team Description 02/16/2021 Anesthesia Event Department of Radiology Liban Sunshine APRN, MACHINE COMPOSITOR, DNAP [address] [place] [phone] in [facility] Deep Velasquez M.D. [address] [place] [phone] [place] [phone] Anesthesia Record Procedure Summary Procedure Name Responsible Anesthesia Start Anesthesia Stop Anesthesiologist Time Time IR CEREBRAL Liban Sunshine APRN, 02/16/21 0825 02/16/21 1100 INTRACRANIAL ARTERY MACHINE COMPOSITOR, DNAP EMBOLIZATION Events Date Time Event Comment [...] h andoff to the receiving staff during [facility] we 1. Identified the patient 2. [...] 1,000 units/mL injection 6,000 Units heparin standard 21350 Units/250 mL in 0.45 % Sodium C [...] you attend muslim or Patient refused 2021 latter-day services? Do you belong to any clubs or No 05/17/2022 organizations such as muslim groups, unions, fraNexterra or athletic groups, or school groups? How [...] Room / Location: Department of Radiology in [place], [place] Anesthesia Start: 824 Anesthesia Stop: 1100 [...] Dr. Castillo. Location: Department of Radiology in [place], [place] Pertinent components of the patient's history [...] with patient /legal guardian or through an park interpreter. Risks/Benefits/Alternatives of Blood transfusion discussed with [...]
--- OUTSIDE RECORDS SUMMARY | 2022-08-01 07:47 | XMS_ITS | Encounter Summary ---
:1965 Author Organization [facility] Address [address] [place] [address] Care Team Providers Name Role Phone Unavailable Primary Care Provider Unavailable Encounter Details Date Type Department Care Team Description 02/11/2021 Ancillary Procedure Department of Radiology Ridge Vega in [facility] raúl Quintana 200 [facility] 200 [place] [phone] (Wo rk) Social History Tobacco Use Types [...] you attend bahai or Patient refused 2021 oriental orthodox services? [...] bilateral thalami (series 3 image 36), bilateral UNISHEAR OPERATOR regio n (left greater than right, [...] bilateral thalami (series 3 image 36), bilateral UNISHEAR OPERATOR regio n (left greater than right, [...] bilateral thalami (series 3 image 36), bilateral UNISHEAR OPERATOR regio n (left greater than right, [...] bilateral thalami (series 3 image 36), bilateral UNISHEAR OPERATOR regio n (left greater than right, [...] bilateral thalami (series 3 image 36), bilateral UNISHEAR OPERATOR regio n (left greater than right, [...] bilateral thalami (series 3 image 36), bilateral UNISHEAR OPERATOR regio n (left greater than right, [...]
--- OUTSIDE RECORDS SUMMARY | 2022-08-01 07:47 | XMS_ITS | Encounter Summary ---
:1965 Author Organization [facility] Address 200 [place] [address] Care Team Providers Name Role Phone Unavailable Primary Care Provider Unavailable Reason for Referral Outpatient (Routine) - Closed Specialty Diagnoses / Procedures Referred By Contact Refer red To Contact Neurological Surgery Jeannette Cote [place] [facility] Lilian 200 [place] [address] Referral ID Status Reason Start Date Expiration Date Visits Requ ested Visits Authorized [id number] Closed 02/17/2021 02/17/2022 1 1 Scheduling Instructions Please schedule with Chief A Neurosurger y Service (Dr. Suhail Benjamin). 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 [facility] Procedures CT Head Neck Angiogram with IV Contrast 200 [place] [address] Referral ID Status Reason Start Date Expiration Date Visits Requ ested Visits Authorized [id number] Closed 02/17/2021 02/17/2022 1 1 Encounter Details Date Type Department Care Team Description 02/17/2021 Orders Only Department of Jeannette Cote Cerebral Infarction Neurologic Surgery jimmy Souza M.D. Due To Embolism Right [place], [place] 200 [address] [facility] Vertebral Artery (HCC) [address] [place], [place] (Primary Dx) [place] [phone] Social History Tobacco Use Types Packs/Day Years [...] you attend sabianism or Patient refused 2021 hinduism services? Do [...] Neuroradiology ARZ LOS, Neuroradiology T omography [facility] Specimen (Source) Anatomical Collection Method Collection [...] ane urysms. 3. 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 Otherwise [place]hoe of [place] ll[place] is intact. Dolichoectasia of [...] 2 mm left supraclinoid aneurysm (557). Otherwise [place]hoe of Wi llis is intact. Dolichoectasia of [...] ane urysms. 3. 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 Jeannette NIELSON CT [...]
--- OUTSIDE RECORDS SUMMARY | 2022-08-01 07:47 | XMS_ITS | Encounter Summary ---
:1965 Author Organization [facility] Address [address] [place] [address] Care Team Providers Name Role Phone Unavailable Primary Care Provider Unavailable Encounter Details Date Type Department Care Team Description 02/11/2021 Ancillary Procedure Department of Radiology Ridge Vega in [facility] raúl Quintana 200 [facility] 200 [place] [phone] (Wo rk) Social History Tobacco Use Types [...] you attend moravian or Patient refused 2021 yarsanism services? Do [...] bilateral thalami (series 3 image 36), bilateral ROCK PICKER 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 bilateral thalami (series 3 image 36), bilateral ROCK PICKER 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 bilateral thalami (series 3 image 36), bilateral ROCK PICKER 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 bilateral thalami (series 3 image 36), bilateral ROCK PICKER 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 bilateral thalami (series 3 image 36), bilateral ROCK PICKER 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 bilateral thalami (series 3 image 36), bilateral ROCK PICKER 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
--- OUTSIDE RECORDS SUMMARY | 2022-08-01 07:47 | XMS_ITS | Encounter Summary ---
:1965 Author Organization [facility] Address [address] [place] [address] Care Team Providers Name Role Phone Unavailable Primary Care Provider Unavailable Reason for Visit Reason Comments Communication Encounter Details Date Type Department Care Team Description 02/19/2021 Clinical Communication Department of Rossy Benjamin Neurologic Surgery in [place], [place] Ph.D. [address] [place] [address] 200 [place] [phone] Social History Tobacco Use Types Packs/Day Years [...] you attend mandaeism or Patient refused 2021 tenriism services? Do [...]
--- OUTSIDE RECORDS SUMMARY | 2022-08-01 07:48 | XMS_ITS | Encounter Summary ---
:1965 Author Organization [facility] Address [address] [place] [address] Care Team Providers Name Role Phone Unavailable Primary Care Provider Unavailable Encounter Details Date Type Department Care Team Description 01/07/2021 Anticoagulation Visit Department of Neurology Zuly Alex in [facility] raúl SkaggsNBritton 1216 [facility] [address] [place] [phone] Social History Tobacco Use Types Packs/Day Years [...] you attend anglican or Patient refused 2021 yazdanism services? Do [...] is 2.28. Discussed with Dr. Ashley Castrejon ([phone]) who advises that the patient take 5 [...] OF PHONE CALL. Test results, symptom assessment. E INSERTER documented in this encounter Plan of Treatment Not on filedocumented as of this encounter Procedures Procedure Name Priority Date/Time Associated Diagnosis Comme nts PROTHROMBIN TIME (PT), Routine 01/07/2021 Resul ts for this P procedure are i n the results section . documented in this encounter Results Prothrombin Time (PT) (01/07/2021) P athologist Signature EXT INR 2.28 OTHER (SPECIFY IN OPERATIONS EXPERT) Specimen (Source) Anatomical Location Collection Method / Collectio n Time Received Time / Laterality Volume Blood (Blood, 01/07/2021 Venous) Narrative This result has an attachment that is no t available. Historical Provider LAB BLOOD ADD-ON Performing Organization Address City/State/ZIP Code Phon e Number OTHER (SPECIFY IN OPERATIONS EXPERT) OTHER (SPECIFY IN OPERATIONS EXPERT) N/A documented in this encounter Visit Diagnoses Not on filedocumented in this encounter Additional Health Concerns Assessment Noted Time PHQ-9 Depression Total Score: 5 04/05/2019 8:00 AM CDT documented as of this encounter
--- OUTSIDE RECORDS SUMMARY | 2022-08-01 07:48 | XMS_ITS | Encounter Summary ---
:1965 Author Organization [facility] Address [address] [place] [address] Care Team Providers Name Role Phone Unavailable Primary Care Provider Unavailable Encounter Details Date Type Department Care Team Description 01/16/2021 Anticoagulation Visit Department of Elvira Villalta ([facility]) (Primary Dx); Neurology in E, R.N. Custodial Anticoagulant Treatment [address] [place] [phone] [place], [place] [phone] (Work) [phone] Social History Tobacco Use Types Packs/Day Years [...] you attend methodist or Patient refused 2021 mosque services? Do [...] Target INR 2.0-3.[address] Argenis Diehl ([phone]). The patient was scheduled for an INR recheck on 01/19/21 but we received a message that she had it drawn today, 01/16/21, by [facility] Nurse. I spoke with RADHA Roman [facility] and she relays that the home POC INR today is 3.9. I discussed this with Dr. Argenis Diehl ([phone]) who advises that the patient follow a [...] provider, Dr. Neri Blackwell, [facility], [place], [place]. I have put in a call for Dr. Blackwell's care team to call us back. Will schedule an INR recheck for 01/20/21. I will fax a standing INR order to RADHA Roman, [facility], phone # [phone], fax #[phone]. She will fax results back to us. [...] OF PHONE CALL. Test results, symptom assessment. FSHEET CORRECTOR documented in this encounter Plan of Treatment Not on filedocumented as of this encounter Procedures Procedure Name Priority Date/Time Associated Comments Diagnosis PROTHROMBIN TIME Routine 01/16/2021 2:10 PM Resul ts for this (PT), P PROOFSHEET CORRECTOR procedure are i n the results section. documented in this encounter Results Prothrombin Time (PT) (01/16/2021 2:10 PM PROOFSHEET CORRECTOR) P athologist Signature EXT INR 3.90 OTHER (SPECIFY IN BUYER PLANNER) Specimen (Source) Anatomical Collection Method Collection Time Re ceived Time Location / / Volume Laterality Blood (Blood, 01/16/2021 2:10 PM Venous) PROOFSHEET CORRECTOR Resulting Agency Comment [facility] Historical Provider LAB BLOOD ADD-ON Performing Organization Address City/State/ZIP Code Phon e Number OTHER (SPECIFY IN BUYER PLANNER) OTHER (SPECIFY IN BUYER PLANNER) N/A documented in this encounter Visit Diagnoses Diagnosis Stroke (HCC) - Primary Custodial (Current) Anticoagulant Treatm ent documented in this encounter Additional Health Concerns Assessment Noted Time PHQ-9 Depression Total Score: 5 04/05/2019 8:00 AM CDT documented as of this encounter
--- OUTSIDE RECORDS SUMMARY | 2022-08-01 07:48 | XMS_ITS | Encounter Summary ---
:1965 Author Organization [facility] Address [address] [place] [address] Care Team Providers Name Role Phone Unavailable Primary Care Provider Unavailable Reason for Visit Outpatient (Routine) - Closed Specialty Diagnoses / Procedures Referred By Contact Refer red To Contact Video Medicine Diagnoses Stroke Cerebrovascular Accident Personal History Robert Diehl [place] M.D. [address] [place] [address] Referral ID Status Reason Start Date Expiration Date Visits Requ ested Visits Authorized [id number] Closed 12/30/2020 12/30/2021 1 1 Encounter Details Date Type Department Care Team Description 02/02/2021 Virtual Visit Department of Robert Diehl Stroke Cere brovascular Neurology jimmy Celaya M.D. Accident Personal [place], [place] 200 [facility] [place] [facility] History 200 [place] [phone] Social History Tobacco Use Types Packs/Day Years [...] you attend jain or Patient refused 2021 worship services? Do you belong to any clubs or No 05/17/2022 organizations such as jain groups, unions, fraAlectrica Motors or athletic groups, or school groups? How [...] department over the weekend was transferred to [facility] service where she is currently admitted. Therefore she will not be present for today's 8:00 a.m. Outpatient consultation. Highly appreciative of the [facility] Stroke Service cares. No charge. Electronically signed by: Robert Diehl M.D. 02/02/21 7:46 AM ORDERING MACHINE OPERATOR RING MACHINE OPERATOR documented in this encounter Plan of Treatment Not on filedocumented as of this encounter Visit Diagnoses Diagnosis Stroke Cerebrovascular Accident Personal History documented in this encounter Additional Health Concerns Assessment Noted Time PHQ-9 Depression Total Score: 23 02/02/2021 11:[address] documented as of this encounter
--- OUTSIDE RECORDS SUMMARY | 2022-08-01 07:48 | XMS_ITS | Encounter Summary ---
:1965 Author Organization [facility] Address [address] [place] [address] Care Team Providers Name Role Phone Unavailable Primary Care Provider Unavailable Encounter Details Date Type Department Care Team Description 01/12/2021 Anticoagulation Visit Department of Neurology Zuly Alex in [facility] raúl SkaggsNBritton 1216 [facility] [address] [place] [phone] Social History Tobacco Use Types Packs/Day Years [...] you attend mandaeism or Patient refused 2021 jainism services? Do [...] Target INR 2.0-3.[address] Argenis Diehl ([phone]). The patient was scheduled for an INR recheck on 01/09/21, however did not have an INR draw until late that afternoon. The results did not become available until after clinic hours. Patient's INR on 01/09/21 was 2.[address]. Discussed with Dr. Argenis Diehl ([phone]) who advises that the patient follow a [...] OF PHONE CALL. Test results, symptom assessment. EY CAD TECHNICIAN documented in this encounter Plan of Treatment Not on filedocumented as of this encounter Procedures Procedure Name Priority Date/Time Associated Diagnosis Comme nts PROTHROMBIN TIME (PT), Routine 01/09/2021 Resul ts for this P procedure are i n the results section . documented in this encounter Results Prothrombin Time (PT) (01/09/2021) P athologist Signature EXT INR 2.40 OTHER (SPECIFY IN SPLICING MACHINE OPERATOR) Specimen (Source) Anatomical Location Collection Method / Collectio n Time Received Time / Laterality Volume Blood (Blood, 01/09/2021 Venous) Narrative This result has an attachment that is no t available. Historical Provider LAB BLOOD ADD-ON Performing Organization Address City/State/ZIP Code Phon e Number OTHER (SPECIFY IN SPLICING MACHINE OPERATOR) OTHER (SPECIFY IN SPLICING MACHINE OPERATOR) N/A documented in this encounter Visit Diagnoses Not on filedocumented in this encounter Additional Health Concerns Assessment Noted Time PHQ-9 Depression Total Score: 5 04/05/2019 8:00 AM CDT documented as of this encounter
--- OUTSIDE RECORDS SUMMARY | 2022-08-01 07:48 | XMS_ITS | Encounter Summary ---
:1965 [facility] Address [address] [place] [address] Care Team Providers Name Role Phone Unavailable Primary Care Provider Unavailable Reason for Referral MRI/CAT/PET Scan (Routine) - Closed Specialty Diagnoses / Procedures Referred By Contact Refer red To Contact Radiology Diagnoses Robert Akhtar M.D. [facility] Procedures CT Head Neck Angiogram with IV Contrast [address] [place] [address] Referral ID Status Reason Start Date Expiration Date Visits Requ ested Visits Authorized [id number] Closed 12/30/2020 12/30/2021 1 1 IFICATION OFFICER MRI/CAT/PET Scan (Routine) - Closed Specialty Diagnoses / Procedures Referred By Contact Refer red To Contact Radiology Diagnoses Stroke Cerebrovascular Accident Personal History Robert Diehl M.D. [facility] Procedures CT Head without IV Contrast [address] [place] [address] Referral ID Status Reason Start Date Expiration Date Visits Requ ested Visits Authorized [id number] Closed 12/30/2020 12/30/2021 1 1 IFICATION OFFICER Reason for Visit MRI/CAT/PET Scan (Routine) - Closed Specialty Diagnoses / Procedures Referred By Contact Refer red To Contact Radiology Diagnoses Ataxia Robert Diehl M.D. [facility] Procedures CT Head Neck Angiogram with IV Contrast [address] [place] [address] Referral ID Status Reason Start Date Expiration Date Visits Requ ested Visits Authorized [id number] Closed 12/30/2020 12/30/2021 1 1 Encounter Details Date Type Department Care Team Description 12/31/2020 Hospital Encounter Department of Robert Diehl Stroke Cerebrovascular Accident Personal History; Radiology, Severiano Celaya M.D. [facility], in [address] [place] [phone] [place] [address] [place], [place] (Work) [phone] Social History Tobacco Use Types Packs/Day Years [...] you attend protestant or Patient refused 2021 scientology services? Do [...] Robert Diehl M.D. - 12/31/2020 5:17 PM CERTIFICATION OFFICER I called and discussed the results with [...] by: Robert Diehl M.D. 12/31/20 5:16 PM CERTIFICATION OFFICER Stroke Cerebrovascular Accident Personal History Plan: CT Head without IV Contrast, CT Head without IV Contrast Ataxia Plan: CT Head Neck Angiogram with IV Contrast, CT Head Neck Angiogram with IV Contrast IFICATION OFFICER documented in this encounter Plan of Treatment Not on filedocumented as of this encounter Procedures Procedure Name Priority Date/Time Associated Diagnosis Comme nts CT HEAD WITHOUT RAD - Routine 12/31/2020 3:34 Stroke Results for IV CONTRAST (most inpatients PM CERTIFICATION OFFICER Cerebrovascular this pro cedure and all Accident Personal are in the outpatients) History results section. CT HEAD NECK RAD - Routine 12/31/2020 3:34 Ataxia Results for ANGIOGRAM WITH (most inpatients PM CERTIFICATION OFFICER this proc edure IV CONTRAST and all are in the outpatients) results section. documented in this encounter Results CT Head Neck Angiogram with IV Contrast (12/31/2020 3:34 PM CERTIFICATION OFFICER) Anatomical Region Laterality Modality Head and Neck, Neuroradiology RST LOS, N/A C omputed Tomography, Computed Neuroradiology ARZ LOS, Neuroradiology T omography FLA [facility] Specimen (Source) Anatomical Collection Method Collection Time Re ceived Time Location / / Volume Laterality 12/31/2020 3:49 PM CERTIFICATION OFFICER Impressions 12/31/2020 4:54 PM CERTIFICATION OFFICER 1. Evolving right cerebellar infarct with decreased [...] oid ICA aneurysms. Narrative 12/31/2020 4:54 PM CERTIFICATION OFFICER EXAM: CT HEAD WITHOUT IV CONTRAST, CT [...] discussed with ordering physici Dr. Fazal abbasi ([id number]) at 4:54 PM on 12/31/2020. Procedure Note [...] discussed with ordering physici Dr. Fazal abbasi ([id number]) at 4:54 PM on 12/31/2020. IMPRESSION: 1. [...] Head without IV Contrast (12/31/2020 3:34 PM CERTIFICATION OFFICER) Anatomical Region Laterality Modality Head, Neuroradiology RST LOS, N/A Computed T omography, Computed Neuroradiology ARZ LOS, Neuroradiology T omography FLA LOS Specimen (Source) Anatomical Collection Method Collection Time Re ceived Time Location / / Volume Laterality 12/31/2020 3:49 PM CERTIFICATION OFFICER Impressions 12/31/2020 4:54 PM CERTIFICATION OFFICER 1. Evolving right cerebellar infarct with decreased [...] oid ICA aneurysms. Narrative 12/31/2020 4:54 PM CERTIFICATION OFFICER EXAM: CT HEAD WITHOUT IV CONTRAST, CT [...] discussed with ordering physici Dr. Fazal abbasi ([id number]) at 4:54 PM on 12/31/2020. Procedure Note [...] Findings discussed with ordering physici anDr. Diehl ([id number]) at 4:54 PM on 12/31/2020. IMPRESSION: 1. [...] mg iodine/mL solution Given 12/31/2020 3:34 PM CERTIFICATION OFFICER 1 00 mL 1-200 mL (OMNIPAQUE) 1-200 mL, intravenous, Once in imaging, contrast, Starting on Tue12/31/20 at 1411, For 1 dose, Imaging Protocol Orders, Dose per Radiant Medication Guidelines sodium chloride (PF) 0.9 % injection 1-1 00 mL Given 12/31/2020 3:34 PM CERTIFICATION OFFICER 35 mL 1-100 mL, intravenous, Once, On Tue12/31/20 at 1415, For 1 dose, Imaging Protocol Orders documented in this encounter Additional Health Concerns Assessment Noted Time PHQ-9 Depression Total Score: 5 04/05/2019 8:00 AM CDT documented as of this encounter
--- OUTSIDE RECORDS SUMMARY | 2022-08-01 07:48 | XMS_ITS | Encounter Summary ---
:1965 Author Organization [facility] Address [address] [place] [address] Care Team Providers Name Role Phone Unavailable Primary Care Provider Unavailable Reason for Visit Reason Comments Pre-visit Intake Encounter Details Date Type Department Care Team Description 01/29/2021 Clinical Communication Department of Robert Diehl e-visit Intake Neurology in Lilian Celaya [place], [facility] [place], [place] [address] [place] [address] [place], [place] [phone] (Work) [phone] Social History Tobacco Use Types Packs/Day Years [...] you attend pentecostal or Patient refused 2021 tenriism services? Do [...]
--- OUTSIDE RECORDS SUMMARY | 2022-08-01 07:48 | XMS_ITS | Encounter Summary ---
:1965 Author Organization [facility] Address [address] [place] [address] Care Team Providers Name Role Phone Unavailable Primary Care Provider Unavailable Encounter Details Date Type Department Care Team Description 02/02/2021 Orders Only Department of Neurology in Bisi Acevedo D.O. [place], [place] 200 [facility] 200 [place] [phone] [phone] (Wo rk) Social History Tobacco Use Types [...] you attend sikh or Patient refused 2021 moravian services? Do [...]
--- OUTSIDE RECORDS SUMMARY | 2022-08-01 07:48 | XMS_ITS | Encounter Summary ---
:1965 Author Organization [facility] Address [address] [place] [address] Care Team Providers Name Role Phone Unavailable Primary Care Provider Unavailable Reason for Referral MRI/CAT/PET Scan (Routine) - Closed Specialty Diagnoses / Procedures Referred By Contact Refer red To Contact Radiology Diagnoses Robert Akhtar M.D. [facility] Procedures CT Head Neck Angiogram with IV Contrast [address] [place], [place] [address] Referral ID Status Reason Start Date Expiration Date Visits Requ ested Visits Authorized [id number] Closed 12/31/2020 12/31/2021 1 1 PRESIDENT OF DEVELOPMENT Reason for Visit MRI/CAT/PET Scan (Routine) - Closed Specialty Diagnoses / Procedures Referred By Contact Refer red To Contact Radiology Diagnoses Ataxia Robert Diehl M.D. [facility] Procedures CT Head Neck Angiogram with IV Contrast [address] [place], [place] [address] Referral ID Status Reason Start Date Expiration Date Visits Requ ested Visits Authorized [id number] Closed 12/31/2020 12/31/2021 1 1 Encounter Details Date Type Department Care Team Description 01/30/2021 Hospital Encounter Department of Radiology, Akhil Diehl Ataxia [facility], in M.D. [place], [place] [address] [facility] [address] [place] [phone] (Babatnude billings) Social History Tobacco Use Types Packs/Day [...] you attend bahai or Patient refused 2021 sabianist services? Do [...] this ANGIOGRAM WITH IV (most inpatients PM VICE PRESIDENT OF DEVELOPMENT proced ure are in CONTRAST and all the results outpatients) section. documented in this encounter Results CT Head Neck Angiogram with IV Contrast (01/30/2021 3:24 PM VICE PRESIDENT OF DEVELOPMENT) Anatomical Region Laterality Modality Head and Neck, Neuroradiology RST LOS, N/A C omputed Tomography, Computed Neuroradiology ARZ LOS, Neuroradiology T omography FLA [facility] Specimen (Source) Anatomical Collection Method Collection Time Re ceived Time Location / / Volume Laterality 01/30/2021 2:25 PM VICE PRESIDENT OF DEVELOPMENT Impressions 01/30/2021 3:18 PM VICE PRESIDENT OF DEVELOPMENT 1. 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 Slightly decreased high-grade stenosis a t the V3/4 junction with increased flow in the distal V4 segment. 2. Evolving, now chronic right cerebella r infarct. 3. 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 Narrative 01/30/2021 3:18 PM VICE PRESIDENT OF DEVELOPMENT EXAM: CT HEAD NECK ANGIOGRAM WITH IV [...] normal caliber bilater al MCAs, ACAs and key bed installer. Patent anterior and right posterior communicating arteri [...] normal caliber bilater al MCAs, ACAs and key bed installer. Patent anterior and right posterior communicating arteri [...] mg iodine/mL solution Given 01/30/2021 2:29 PM VICE PRESIDENT OF DEVELOPMENT 1 00 mL 1-200 mL (OMNIPAQUE) 1-200 mL, intravenous, Once in imaging, contrast, Starting on Tue01/30/21 at 1355, For 1 dose, Imaging Protocol Orders, Dose per Radiant Medication Guidelines sodium chloride (PF) 0.9 % injection 1-1 00 mL Given 01/30/2021 2:29 PM VICE PRESIDENT OF DEVELOPMENT 35 mL 1-100 mL, intravenous, Once, On Tue01/30/21 at 1400, For 1 dose, Imaging Protocol Orders documented in this encounter Additional Health Concerns Assessment Noted Time PHQ-9 Depression Total Score: 5 04/05/2019 8:00 AM CDT documented as of this encounter
--- OUTSIDE RECORDS SUMMARY | 2022-08-01 07:48 | XMS_ITS | Encounter Summary ---
:1965 Author Organization [facility] Address [address] [place] [address] Care Team Providers Name Role Phone Unavailable Primary Care Provider Unavailable Reason for Visit Reason Comments Tahmina/Fazal Encounter Details Date Type Department Care Team Description 01/26/2021 Clinical Communication Department of Robert Diehl W8[facility] in .. [place], [place] 200 [facility] 200 [place] [phone] Social History Tobacco Use Types Packs/Day Years [...] you attend zoroastrian or Patient refused 2021 anabaptism services? Do [...] 01/26/2021 5:19 PM CST Great thank you ARMS EXPERT Addendum Note - Robert Diehl M.D. - 01/26/2021 2:50 PM FIREARMS EXPERT Addended by: ROBERT DIEHL on: 01/26/2021 02:50 PM Modules accepted: Orders ARMS EXPERT Telephone Encounter - Robert Diehl M.D. - 01/26/2021 2:49 PM CST Believe MRI is ordered now. ARMS EXPERT Telephone Encounter - Robert Diehl M.D. - 01/26/2021 2:47 PM CST I am sorry to learn of the patient's additional symptoms Unfortunately we cannot react as quickly as the emergency department which was recommended locally I will order a brain MRI and in-person or video visit to follow-up. Thank you ARMS EXPERT Telephone Encounter - Allyssa Amaya - 01/26/2021 12:56 PM CST Patient calls checking the status of this request. Thank you. ARMS EXPERT documented in this encounter Plan of Treatment Not on filedocumented as of this encounter Visit Diagnoses Diagnosis Stroke Cerebrovascular Accident Personal History - Primary documented in this encounter Additional Health Concerns Assessment Noted Time PHQ-9 Depression Total Score: 5 04/05/2019 8:00 AM CDT documented as of this encounter
--- OUTSIDE RECORDS SUMMARY | 2022-08-01 07:48 | XMS_ITS | Encounter Summary ---
:1965 Author Organization [facility] Address [address] [place] [address] Care Team Providers Name Role Phone Unavailable Primary Care Provider Unavailable Encounter Details Date Type Department Care Team Description 01/05/2021 Anticoagulation Visit Department of Neurology Elvira Villalta in [facility] potato chip fryer R[facility]ittonNBritton [address] [facility] [address] [place] [phone] Social History Tobacco Use Types Packs/Day Years [...] you attend scientologist or Patient refused 2021 samaritan services? Do [...] an INR at her outside clinic in [place], [place] today and I called the lab [phone] and was told she did not report [...] advised for today, she report to the [place] lab as scheduled. Ms. Mosquera states she will do that. RECOMMENDED LEVEL OF CARE. The patient/caller is willing and able to follow the nurse's recommendation. RESPONSE TO ADVICE GIVEN. Patient/caller able to teach back. REFERENCES UTILIZED. Nursing clinical judgment utilized. Other interventions or information: Provider advice. TYPE OF PHONE CALL. INR management GER AGRICULTURE Elvira Villalta R.N. - 01/05/2021 4:06 PM CST Patient's INR today is 1.47. Discussed with Dr. Neri Acevedo ([id number]) who advises that the patient take 7.5 [...] OF PHONE CALL. Test results, symptom assessment. GER AGRICULTURE documented in this encounter Plan of Treatment Not on filedocumented as of this encounter Procedures Procedure Name Priority Date/Time Associated Comments Diagnosis PROTHROMBIN TIME Routine 01/05/2021 3:15 PM Resul ts for this (PT), P MANAGER AGRICULTURE procedure are i n the results section. documented in this encounter Results Prothrombin Time (PT) (01/05/2021 3:15 PM MANAGER AGRICULTURE) P athologist Signature EXT INR 1.47 OTHER (SPECIFY IN AUTOMATIC LOG CUT OFF SAWYER) Specimen (Source) Anatomical Collection Method Collection Time Re ceived Time Location / / Volume Laterality Blood (Blood, 01/05/2021 3:15 PM Venous) MANAGER AGRICULTURE Narrative This result has an attachment that is no t available. Resulting Agency Comment [facility] Historical Provider LAB BLOOD ADD-ON Performing Organization Address City/State/ZIP Code Phon e Number OTHER (SPECIFY IN AUTOMATIC LOG CUT OFF SAWYER) OTHER (SPECIFY IN AUTOMATIC LOG CUT OFF SAWYER) N/A documented in this encounter Visit Diagnoses Not on filedocumented in this encounter Additional Health Concerns Assessment Noted Time PHQ-9 Depression Total Score: 5 04/05/2019 8:00 AM CDT documented as of this encounter
--- OUTSIDE RECORDS SUMMARY | 2022-08-01 07:48 | XMS_ITS | Encounter Summary ---
:1965 Author Organization [facility] Address [address] [place] [address] Care Team Providers Name Role Phone Unavailable Primary Care Provider Unavailable Reason for Referral Outpatient (Routine) - Closed Specialty Diagnoses / Procedures Referred By Contact Refer red To Contact Home Health Care Diagnoses Stroke (HCC) Chronic Pain Syndrome Stroke Cerebrovascular Accident Personal History Ric Quinn M.D., M.S. [address] [place] [phone] Referral ID Status Reason Start Date Expiration Date Visits Requ ested Visits Authorized [id number] Closed 02/03/2021 02/03/2022 1 1 EN TESTER Encounter Details Date Type Department Care Team Description 01/31/2021 - Hospital Encounter [facility] Blanca, Stroke (H CC) (Primary Dx); [facility], [address] [place] [address] Stroke Cerebrovascular Accident Personal History [facility], [facility] [phone] floor [phone] [place] [address] (Work) [place], [place] [phone] (Fax) [phone] Social History Tobacco Use Types Packs/Day Years [...] you attend confucianist or Patient refused 2021 catholic services? Do [...] Comments Blood Pressure 133/71 02/03/2021 5:15 PM WOOLEN TESTER Pulse 92 02/03/2021 5:15 PM WOOLEN TESTER Temperature 36.5 ??C (97.7 ??F) 02/03/2021 5:15 PM WOOLEN TESTER Respiratory Rate 17 02/03/2021 5:15 PM WOOLEN TESTER Oxygen Saturation 97% 02/03/2021 5:15 PM WOOLEN TESTER Inhaled Oxygen Concentration - - Weight 78.8 kg (173 lb 11.6 oz) 01/31/2021 9:39 PM WOOLEN TESTER Height 152.4 cm (5') 01/31/2021 9:39 PM WOOLEN TESTER Body Mass Index 33.93 01/31/2021 9:39 PM WOOLEN TESTER documented in this encounter Discharge Summaries Malcom Torres M.D. - 02/03/2021 2:24 PM CST DISCHARGE SUMMARY BRIEF OVERVIEW Hospital: [facility] Discharge Provider: Nan Rios M.D. Primary Team: [facility] Stroke and Cerebrovascular Disease No primary [...] FOLLOW UP Scheduled Appointments 04/28/2021 1:00 PM oRbert Diehl M.D. Neurology For appointment details refer [...] artery dissection. Shewas subsequently admitted directly to [facility] Neurology Stroke service for further [...] ??C, temperature source Oral, resp. rate 17, .4 cm, weight 78.8 kg, SpO2 94 %. [...] were provided to the patient and caregiver(s). EN TESTER documented in this encounter Discharge Instructions Discharge InstructionsLaquita Raines - 02/02/2021 7:23 AM CST You were discharge from the Neurology Stroke Service. Please Identify this service name if you call with questions after your hospitalization. EN TESTER Discharge Instr - ActivityLeonides Liang P.T. - 02/02/2021 1:13 PM WOOLEN TESTER Physical Therapy Discharge Summary MOBILITY RESTRICTIONS/PRECAUTIONS: Fall [...] 02/02/2021 by Leonides Liang P.T. Contact information: [facility], 5 Melissa, EN TESTER AttachmentsThe following attachments cannot be sent through Care Everywhere. Apixaban (By mouth) (Iranian)Nicotine (Absorbed through the skin) (Iranian) Nicotine (By breathing) (Iranian)Nicotine (Into the nose) (Iranian)documented in this encounter Medications at Time of [...] Per patient report, she was able to fish net stringer the shower last evening and using grab [...] Treatment Time (min): 16 min MILA Cardoza EN TESTER Helen Greer P.T. - 02/03/2021 1:57 PM CST No PT intervention today as patient was at an MRI this morning, now stating that she has just gone for a walk and plans are for dc to home with intermittent assist from her son. Helen Greer, PT EN TESTER Catalina Panchal, R.N. - 02/03/2021 1:49 PM CST Patient discussed at Stroke Multidisciplinary Rounds. Plan for the day: Case Management Following, PT/OT, Medication Management, MRI/MRA Plan for the Stay: Stroke w/u Discharge barriers: Inpatient Needs Recommended discharge disposition: [facility] w/[facility] EN TESTER Nan Rios M.D. - 02/03/2021 10:36 AM [...] pain syndrome, fibromyalgia, and nicotine use disorder. EN TESTER Leonides Kumar M.D. - 02/03/2021 7:09 AM [...] status: Prior Disposition: Home Plan discussed with [facility] Stroke and Cerebrovascular Disease Gis Software Engineer, Dr. Rios. Please page the [facility] Stroke and Cerebrovascular Disease service pager at [phone] with any questions. Leonides Kumar M.D. EN TESTER Makenzie Figueredo O.T.Katarina - 02/02/2021 3:24 PM [...] home to ensure her safety. From the Ob Scrub Tech's perspective, the patient is not an inpatient [...] Treatment Time (min): 32 min MILA Cardoza EN TESTER Catalina Panchal RBetsy - 02/02/2021 2:31 PM CST Patient discussed at Stroke Multidisciplinary Rounds. Plan for the day: MRI, Case Management Consult, PT/OT, Medication Management Plan for the Stay: Stroke w/u Discharge barriers: Inpatient Needs Recommended discharge disposition: [facility] w/C EN TESTER Leonides Liang P.T. - 02/02/2021 12:58 PM [...] Time (min): 32 min Leonides Liang P.T. EN TESTER Nan Rios M.D. - 02/02/2021 10:27 AM [...] pain syndrome, fibromyalgia, and nicotine use disorder. EN TESTER Jessie Rock Pharm.D., R.Ph. - 02/02/2021 10:21 AM CST Images from the original note were not included. Admission Medication History Note Adherence issues: Unable to assess Medication list source: Pharmacy or dispense records. Medication list provided by [facility] in [place]. Most recent dispensing information obtained. Multiple changes [...] by mouth 2 (two) times a day. EN TESTER Leonides Kumar M.D. - 02/02/2021 6:55 AM [...] status: Prior Disposition: Home Plan discussed with [facility] Stroke and Cerebrovascular Disease Gis Software Engineer, Dr. Rios. Please page the [facility] Stroke and Cerebrovascular Disease service pager at [phone] with any questions. Leonides Kumar M.D. EN TESTER Leonides Kumar M.D. - 02/01/2021 6:36 AM [...] status: Prior Disposition: Home Plan discussed with [facility] Stroke and Cerebrovascular Disease Gis Software Engineer, Dr. Rios. Please page the [facility] Stroke and Cerebrovascular Disease service pager at [phone] with any questions. Leonides Kumar M.D. EN TESTER documented in this encounter H&P Notes Nan [...] segment. ?? The patient presented to the [place] ED with acute onset vertigo which occurred yesterday afternoon while she was at [facility]. She bent forward and complained of neck pain which radiated to the top of her head. She also complained of warmth all over her body and generalised weakness. ?? With effort, she was able to ambulate back to her car with her groceries, where she met her son, whothen took her to the [place] ED. There, the patient had a head CT the chronic left cerebellar infarct. There was also concern for a new infarct in the right thalamus. INR was 1.35. She was transferred to [facility] for further evaluation. ?? Today, [...] 0 Coordination -1 Finger-nose (eyes closed) 0 Heel-mnotes Gait and Station: Not tested ASSESSMENT / [...] pain syndrome, fibromyalgia, and nicotine use disorder. EN TESTER Marbella Cutler M.D. - 02/01/2021 2:55 AM [...] V4 segment. The patient presented to the [place] ED with acute onset vertigo which occurred yesterday afternoon while she was at [facility]. She bent forward and complained of neck pain which radiated to the top of her head. She also complained of warmth all over her body and generalised weakness. With effort, she was able to ambulate back to her car with her groceries, where she met her son, whothen took her to the [place] ED. There, the patient had a head CT the chronic left cerebellar infarct. INR was 1.35. She was transferred to [facility] for further evaluation. On the floor, she was hemodynamically stable but complained of ongoing vertigo, with difficulty keeping her eyes open. Social history: she is currently unemployed but previously worked at a [employer] and [employer]. She is fully independent of her ADLs [...] admitting resident. Please page the Stroke service [phone] with questions/concerns. EN TESTER Gerald England M.D. - 01/31/2021 9:16 PM [...] artery dissection. Shewas subsequently admitted directly to [facility] Neurology Stroke service for further [...] COMPUTER NAVIGATION.; Surgeon: Darlin Olmedo M.D.; Location: [facility] OR ??? HYSTERECTOMY ??? JOINT REPLACEMENT [...] More than three times a week Attends catholic service: Patient refused Active member of club [...] and normal caliber bilateral MCAs, ACAs and dental technician metal. Patent anterior and right posterior communicating arteries. [...] page the Cerebrovascular Neurology Service pager at [phone] with any questions or concerns. [facility] Stroke Neurology Service Financial Solutions Advisor: Nan England M.D. STROKE DOCUMENTATION: Stroke Center [...] to hemorrhage and/or hemorrhagic risk Prestroke modified Thurman Score (mRS): 1 - No significant disability. [...] 30 or greater) and hormonal contraceptive use EN TESTER documented in this encounter Consult Notes Pamela Middleton M.S., L.Sapna.NeriC., C.T.T.S. - 02/03/2021 10:08 AM CSTAssociated Order(s): IP CONSULT TO INTERNAL MEDICINE NICOTINE DEPENDENCE; IP CONSULT TO INTERNAL MEDICINE NICOTINE DEPENDENCE SUBJECTIVE Consults REASON FOR CONSULT Admitting Service: Neurology Reason for Consult: Tobacco Use Disorder HISTORY OF PRESENT ILLNESS Agnie Bender is a 55 y.o. female who was seen at [place] and is being evaluated for tobacco use [...] provided the patient with educational materials and [facility][NOTE 3] contact information. Patient is unable to schedule [...] Middleton M.S., Delvin, C.T.T.S. 02/03/2021 10:08 AM WOOLEN TESTER EN TESTER Catalina Panchal, RBrittonNBritton - 02/02/2021 2:11 PM CSTAssociated Order(s): IP CONSULT TO CARE MANAGEMENT Discharge Planning Assessment SUBJECTIVE Referral Data Referral Source: Early Screen for Discharge Planning Referral Reason: Discharge Planning Discharge Planning: Home health Who was present during the interview?: Patient Back Joiner Services Used: No Patient Information Primary Caregiver: Self Legal Information Legal Decision Maker: Self Legal Status: Voluntary Caregiver Information Self Services Requested Home Health: shelter Level of Care: Intermediate OBJECTIVE Functional Status (ADLs) Functional Status: Minimum assistance Assistive Devices: Walker, Shower chair, Eyeglasses, Hearing aids Dressing: Independent Feeding: Independent Bathing: Independent Grooming: Independent Toileting: Independent Transfer to/from Bed, Chair Etc.: Independent Mobility: Independent Meal Prep: Independent Medication Setup/Administration: Needs assistance Telephone Use: Independent Housekeeping: Independent Shopping: Independent Managing Finances: Independent Behavior: Oriented Communication: Talks, Understands speaking, Understands Iranian Environmental Supports Home Environment: House Anticipated Needs/Assistive [...] Nurse visit Home Care Agency Name : [facility] Anticipated Discharge Destination: Home-Health Care [facility] Recommended Discharge Services: Nursing Does the patient need discharge transport arranged?: No ASSESSMENT / PLAN Plan Assessment: The wellness program coordinator met with Angie Bender to discuss her current hospitalization and home goingneeds. The patient was unaccompanied. The patient was a reliable historian, but was lacking completedetails at times. The role of wellness program coordinator was reviewed. The patient reviewed her prior level of care and support system. The patient receives support from her son. The patient described her living environment as a single level home with level entry. Housekeeping, grocery shopping, meal prep, and other household responsibilities have previously been completed by patient. wellness program coordinator discussed the patient's potential needs at dismissal based on their home setti ng, previous needs and responsibilities, homebound status, and relevant assessments with the patient. The patient will be safe and supported to return home with [facility] or previous services noted above when [...] dismissal will be provided by family--son. 3. wellness program coordinator recommended nothing at this time. 4. wellness program coordinator provided information regarding the dismissal process. 5. wellness program coordinator placed or requested the following hospital-based consult orders and/or referrals:None. 6. wellness program coordinator will continue to assess for homegoing needs with the interdisciplinary team. 7. wellness program coordinator encouraged the patient to reach out with any questions/concerns. Care Management will continue to follow. Patient to discharge with home health care. [facility] - Admitted Since 01/31/2021 The patient receives long-term visits 1-2x week. She has qualified for BPM ANALYST, homemaking, and home health aide visits, but [...] arise. Signed by: Hailey Panchal R.N. 02/02/2021 Radha Sanderson PStacy. - 02/01/2021 [...] With: Alone Receives Help From: Family, Friend(s), communications attendant ADL Assistance: Independent IADL/Homemaking Assistance: Required assistance IADL/Homemaking Assistance Comments: Has assistance with meals on wheels, cleaning, and medication management Occupational Role: On disability Prior Mobility/Functional Transfers Level of [place]: Independent Previous Transfer/Mobility Assistance Comments: Patient [...] Time (min): 25 min Radha Samuel P.T. EN TESTER Rosario Lopez O.Jolanta. - 02/01/2021 3:17 PM [...] With: Alone Receives Help From: Family, Friend(s), communications attendant ADL Assistance: Independent IADL/Homemaking Assistance: Required assistance IADL/Homemaking Assistance Comments: Has assistance with meals on wheels, cleaning, and medication management Driving: Independent Occupational Role: On disability Occupational Role Comments: Previously worked at a [employer] Prior Mobility/Functional Transfers Level of [place]: Independent Home Living Type of Home: Apartment [...] Time (min): 60 min Rosario Lopez O.T. EN TESTER Maria M Duque M.D. - 02/01/2021 7:21 AM CSTAssociated Order(s): IP CONSULT TO PHYSICAL MEDICINE & REHABILITATION Consult received for Physical Medicine and Rehabilitation Consult Service. I reviewed the electronic health record. I have triaged to therapy only; no bottle washing machine operator consult appears to be necessary at this time. If therapists or referring service feel that a bottle washing machine operator review is necessary, please send a new consult request with only the Physician consult - Physical Medicine and Rehabilitation consult (hospital) item selected. EN TESTER documented in this encounter Nursing Notes Sofie [...] by: Sofie Sutton R.N. 02/03/21 5:24 PM WOOLEN TESTER EN TESTER Sofie Sutton R.N. - 02/03/2021 5:20 PM [...] by: Sofie Sutton R.N. 02/03/21 5:22 PM WOOLEN TESTER EN TESTER Marlene Grover R.N. - 02/03/2021 5:14 AM [...] Goal: Patient discharge needs identified Outcome: Progressing EN TESTER Mague Rudolph R.N. - 02/02/2021 5:03 AM CST Shift Goals: Clinical Goals for the Shift: patient will use call light appropriately Identify possible barriers to meeting goals/advancing plan of care: End of Shift Summary: patient met goal EN TESTER Valarie Grayson R.N. - 02/01/2021 5:59 PM CST Shift Goals: Clinical Goals for the Shift: Patient will tolerate MRI Identify possible barriers to meeting goals/advancing plan of care: Patient's medical facilities section director End of Shift Summary: Goal not met. MRI scheduled for Tuesday related to device monitoring. Electronically signed by: Valarie Gryason R.N. 02/01/21 5:59 PM WOOLEN TESTER Problem: SKIN/TISSUE INTEGRITY Goal: Skin/Tissue integrity maintained or improved Outcome: Progressing Problem: SAFETY ADULT Goal: Maintain a safe environment Outcome: Progressing Problem: SAFETY ADULT - RISK FOR FALL AND OR FALL INJURY Goal: Patient remains free from fall/fall injury Outcome: Progressing EN TESTER documented in this encounter Miscellaneous Notes Hospital [...] artery dissection. Shewas subsequently admitted directly to [facility] Neurology Stroke service for further [...] after a CTA head/neck in 3 months. EN TESTER documented in this encounter Plan of Treatment Scheduled Referrals Name Type Priority Associated Diagnoses Order [facility] [place] [facility] Outpatient Referral Routine Stroke (HCC) Ordered: Health Referral Chronic Pain Syn drome 02/03/2021 Stroke Cerebrovascular Accident Personal History documented as of this encounter Procedures Procedure Name Priority Date/Time Associated Comments Diagnosis MR NECK ANGIOGRAM RAD - Routine 02/03/2021 Results f or WITHOUT AND WITH IV (most inpatients 12:39 PM WOOLEN TESTER this procedure CONTRAST and all are in the outpatients) results section. MR BRAIN WITHOUT AND RAD - Routine 02/03/2021 Result s for WITH IV CONTRAST (most inpatients 12:34 PM WOOLEN TESTER this pr ocedure and all are in the outpatients) results section. DX ABDOMEN SUPINE WITH RAD - Routine 02/02/2021 3:26 R esults for UPRIGHT OR DECUBITUS 2 (most inpatients PM WOOLEN TESTER t his procedure VIEWS and all are in the outpatients) results section. PROTHROMBIN TIME (PT), Routine 02/02/2021 5:20 Re sults for P AM WOOLEN TESTER this procedure are in the results section. LIPID PANEL, S Routine 02/01/2021 5:21 Results fo r AM WOOLEN TESTER this procedure are in the results section. RENAL FUNCTION PANEL, S Routine 02/01/2021 5:21 R esults for AM WOOLEN TESTER this procedure are in the results section. FOLATE, S Routine 02/01/2021 5:21 Results for AM WOOLEN TESTER this procedure are in the results section. VITAMIN B12 ASSAY, S Routine 02/01/2021 5:21 Resu lts for AM WOOLEN TESTER this procedure are in the results section. ECG Routine 01/31/2021 Results for 11:35 PM WOOLEN TESTER this procedure are in the results section. SARS CORONAVIRUS 2, Routine 01/31/2021 Results for RNA, RAPID POC, V 10:32 PM WOOLEN TESTER this proce dure are in the results section. ELECTROLYTE (CHEM 4) Routine 01/31/2021 9:44 Resu lts for PANEL, S/P PM WOOLEN TESTER this procedure are in the results section. ACTIVATED PARTIAL Routine 01/31/2021 9:44 Results for THROMBOPLASTIN TIME PM WOOLEN TESTER this pro cedure (APTT), P are in the results section. PROTHROMBIN TIME (PT), Routine 01/31/2021 9:44 Re sults for P PM WOOLEN TESTER this procedure are in the results section. CBC WITH DIFFERENTIAL, Routine 01/31/2021 9:44 Re sults for B PM WOOLEN TESTER this procedure are in the results section. ALANINE Routine 01/31/2021 9:44 Results for AMINOTRANSFERASE (ALT), PM WOOLEN TESTER this procedure S/P are in the results section. ASPARTATE Routine 01/31/2021 9:44 Results for AMINOTRANSFERASE (AST), PM WOOLEN TESTER this procedure S/P are in the results section. THYROID-STIMULATING Routine 01/31/2021 9:44 Resul ts for HORMONE-SENSITIVE PM WOOLEN TESTER this proce dure (S-TSH) are in the results section. HEMOGLOBIN A1C, B Routine 01/31/2021 9:44 Results for PM WOOLEN TESTER this procedure are in the results section. documented in this encounter Results MR Neck Angiogram without and with IV Contrast (02/03/2021 12:39 PM WOOLEN TESTER) Anatomical Region Laterality Modality Neck, Neuroradiology RST LOS, Neuroradiology ARZ [facility], N/A Magnetic Resonance Neuroradiology F[facility] Specimen (Source) Anatomical Collection Method Collection Time Re ceived Time Location / / Volume Laterality 02/03/2021 11:37 AM WOOLEN TESTER Impressions 02/03/2021 1:26 PM WOOLEN TESTER 1. Infarctions in the posterior circulation of [...] technica l limitations. Narrative 02/03/2021 1:26 PM WOOLEN TESTER EXAM: MR BRAIN WITHOUT AND WITH IV [...] and with IV Contrast (02/03/2021 12:34 PM WOOLEN TESTER) Anatomical Region Laterality Modality Head, Brain, Neuroradiology RST LOS, Neuroradiology ADILIA N/A Magnetic Resonance LOS, Neuroradiology F[facility] Specimen (Source) Anatomical Collection Method Collection Time Re ceived Time Location / / Volume Laterality 02/03/2021 11:37 AM WOOLEN TESTER Impressions 02/03/2021 1:26 PM WOOLEN TESTER 1. Infarctions in the posterior circulation of [...] technica l limitations. Narrative 02/03/2021 1:26 PM WOOLEN TESTER EXAM: MR BRAIN WITHOUT AND WITH IV [...] or Decubitus 2 Views (02/02/2021 3:26 PM WOOLEN TESTER) Anatomical Region Laterality Modality Abdomen, Abdominal RST LOS, Abdominal ARZ LOS, Right Digital Radiography Abdominal FLA LOS Specimen (Source) Anatomical Collection Method Collection Time Re ceived Time Location / / Volume Laterality 02/02/2021 3:49 PM WOOLEN TESTER Impressions 02/02/2021 3:50 PM WOOLEN TESTER Spinal stimulator device with tip over the T7-8 interspace. Generator pack posterior to the left janett ac crest. Postoperative changes ventral hernia repair. Surgical marylin near the GE junction. Cholecystectomy. Lung bases are clear. Narrative 02/02/2021 3:50 PM WOOLEN TESTER EXAM: ??DX ABDOMEN SUPINE WITH UPRIGHT OR [...] (ABNORMAL) Prothrombin Time (PT) (02/02/2021 5:20 AM WOOLEN TESTER) [facility] Method Time Signature Prothrombin 16.2 (H) 9.4 - 12.5 02/02/2021 DTL Time, P sec 6:12 AM WOOLEN TESTER INR 1.5 0.9 - 1.1 02/02/2021 DTL 6:12 AM WOOLEN TESTER Comment: ----ADDITIONAL INFORMATION---- Standard intensity warfarin therapeutic range: 2.0 to 3.0 ?? High intensity warfarin therapeutic rang e: 2.5 to 3.5 Specimen Anatomical Collection Method Collection Time Receive d Time (Source) Location / / Volume Laterality Blood (Blood, 02/02/2021 5:20 AM 02/03/20 5:48 Venous) WOOLEN TESTER AM WOOLEN TESTER Leonides Kumar M.D. LAB BLOOD ADD-ON Performing Organization Address City/State/ZIP Code Phon e Number [facility] - [address] [place], [place] [address] [facility] [place] [address] Laboratories-[facility] 200 [facility] Renal Function Panel (02/01/2021 5:21 AM WOOLEN TESTER) athologist Signature Potassium, S 4.3 3.6 - 5.2 02/01/2021 DTL mmol/L 6:26 AM WOOLEN TESTER Sodium, S 139 135 - 145 02/01/2021 DTL mmol/L 6:26 AM WOOLEN TESTER Chloride, S 106 98 - 107 02/01/2021 DTL mmol/L 6:26 AM WOOLEN TESTER Bicarbonate, S 25 22 - 29 02/01/2021 DTL mmol/L 6:26 AM WOOLEN TESTER Anion Gap 8 7 - 15 02/01/2021 DTL 6:26 AM WOOLEN TESTER BUN (Blood Urea 14 6 - 21 02/01/2021 DTL Nitrogen), S mg/dL 6:26 AM WOOLEN TESTER Creatinine 0.74 0.59 - 02/01/2021 DTL 1.04 mg/dL 6:26 AM WOOLEN TESTER eGFR-Non >90 >=60 02/01/2021 DTL Black/ mL/min/BSA 6:26 AM WOOLEN TESTER Finnish Comment: ----ADDITIONAL INFORMATION---- Estimated GFR calculated using the 2009 CKD_EPI creatinine equation. eGFR-Black/ >90 >=60 mL/min/BSA 2020 6:26 AM WOOLEN TESTER DTL Comment: ----ADDITIONAL INFORMATION---- Estimated GFR calculated using the 2009 CKD_EPI creatinine equation. Calcium, Total, S 9.2 8.6 - 10.0 mg/dL 02/01/2021 6:26 AM WOOLEN TESTER DTL Glucose, S 96 70 - 140 mg/dL 02/01/2021 6:26 AM WOOLEN TESTER D TL Albumin, S 3.6 3.5 - 5.0 g/dL 02/01/2021 6:26 AM WOOLEN TESTER D TL Phosphorus (Inorganic), S 4.0 2.5 - 4.5 mg/dL 02/02/20 6:26 AM WOOLEN TESTER DTL Specimen Anatomical Collection Method Collection Time Receive d Time (Source) Location / / Volume Laterality Blood (Blood, 02/01/2021 5:21 AM 02/02/20 5:52 Venous) WOOLEN TESTER AM WOOLEN TESTER Gerald England M.D. LAB BLOOD ADD-ON Performing Organization Address City/[facility] Phon e Number [facility] - [address] [place] [address] Laboratories-[address] (ABNORMAL) Vitamin B12 Assay (02/01/2021 5:21 AM WOOLEN TESTER) Analysis Performed At Patho logist Time Signature Vitamin B12 >1400 (H) 180 - 914 02/02/2021 DTL Assay, S ng/L 7:10 AM WOOLEN TESTER Comment: ----ADDITIONAL INFORMATION---- In patients being evaluated [...] (Blood, 02/01/2021 5:21 AM 02/02/20 5:52 Venous) WOOLEN TESTER AM WOOLEN TESTER Gerald England M.D. LAB BLOOD ADD-ON Performing Organization Address City/[facility] Phon e Number [facility] - [address] [place], [place] [address] [place] [id number] Laboratories[address] Folate (02/01/2021 5:21 AM WOOLEN TESTER) P athologist Signature Folate, S 17.9 >=4.0 mcg/L 02/02/2021 7:09 DTL AM WOOLEN TESTER Specimen Anatomical Collection Method Collection Time Receive d Time (Source) Location / / Volume Laterality Blood (Blood, 02/01/2021 5:21 AM 02/02/20 5:52 Venous) WOOLEN TESTER AM WOOLEN TESTER Gerald England M.D. LAB BLOOD ADD-ON Performing Organization Address City/[facility] Phon e Number [facility] - [address] [place], [place] [address] [facility] [place] [address] [facility] [address] [facility] Lipid Panel (02/01/2021 5:21 AM WOOLEN TESTER) athologist Signature Cholesterol, 157 mg/dL 02/01/2021 DTL Total 6:27 AM WOOLEN TESTER Comment: ----REFERENCE VALUE---- Desirable: < 200 Borderline high: 200 - 239 High: > or = 240 Triglycerides 107 mg/dL 02/01/2021 6:27 AM WOOLEN TESTER DTL Comment: ----REFERENCE VALUE---- Normal: <150 Borderline high: 150-199 High: 200-499 Very high: > or =500 Cholesterol, HDL, S 88 >=50 mg/dL 02/01/2021 6:27 AM WOOLEN TESTER DTL Calculated LDL 48 mg/dL 02/01/2021 6:27 AM WOOLEN TESTER DT L Comment: ----REFERENCE VALUE---- Desirable: <100 Above Desirable: 100-129 Borderline high: 130-159 High: 160-189 Very high: > or =190 Cholesterol, Non-HDL, Calculated 69 mg/dL 6:27 AM WOOLEN TESTER DTL Comment: ----REFERENCE VALUE---- Desirable: <130 Above Desirable: 130-159 Borderline high: 160-189 High: 190-219 Very high: > or =220 Specimen Anatomical Collection Method Collection Time Receive d Time (Source) Location / / Volume Laterality Blood (Blood, 02/01/2021 5:21 AM 02/02/20 5:52 Venous) WOOLEN TESTER AM WOOLEN TESTER Gerald England M.D. LAB BLOOD ADD-ON Performing Organization Address City/[facility] Phon e Number [facility] - [address] [place], [place] [address] [facility] [place] [address] [facility] [address] SW ECG 12 Lead (01/31/2021 11:35 PM WOOLEN TESTER) P athologist Signature Ventricular Rate 60 BPM MUSE ECG/Min [place] Interval 170 ms MUSE QRSD Interval 88 ms MUSE QT Interval 434 ms MUSE QTC Interval 434 ms MUSE P Yoder 31 degrees MUSE R Yoder -16 degrees MUSE T Wave Yoder 3 degrees MUSE Specimen Anatomical Collection Method Collection Time Receive d Time (Source) Location / / Volume Laterality 01/31/2021 11:35 02/01/2021 6:10 PM WOOLEN TESTER AM WOOLEN TESTER Impressions MUSE - 02/01/2021 6:10 AM WOOLEN TESTER Normal sinus rhythm Minimal voltage criteria for [...] Rapid POC, V Asymptomatic (01/31/2021 10:32 PM WOOLEN TESTER) [facility] gist Method Time Signature SARS Undetected Undetected 01/31/2021 DTLR Coronavirus-2 10:52 PM WOOLEN TESTER , RNA, Rapid POC, V Comment: Negative for SARS-CoV-2. The Cue COVID-19 test is a molecular shahzad t for SARS-CoV-2, the virus that causes COVID- 19. A Negative result means that the [employer] COV ID-19 test did not detect SARS-CoV-2 virus in your sample. Cue COVID-19 test uses the ITeam nitTactoTek System. This test has received Emergency Use Authorization (EUA) by the U.S. Food and Drug Administration (FDA) and is used per man ufacturer instructions. Performance characteristic s were verified by [facility] in a manner consistent with CLIA requirements. Fact sheets for this Emerg ency Use Authorization (EUA) can be found at the following links: Providers: [email or web address]/prov iders.pdf Patients: [email or web address]/documentation/olayinka ents.pdf SARS Coronavirus 2, Source Nasopharynx DEFAULT 01/31/2021 10:52 PM WOOLEN TESTER DTLR Specimen Anatomical Collection Method Collection Time Receive d Time (Source) Location / / Volume Laterality Varies 01/31/2021 10:32 01/31/2021 (Nasopharynx) PM WOOLEN TESTER 10:32 PM WOOLEN TESTER Nan Rios M.D. LAB MICROBIOLOGY - GENERAL O RDERABLES Performing Organization Address City/State/ZIP Code Phon e Number PERFORMING LABS, [place] [address] INTERFACE Ref Interface 200 [facility] DT Performing Labs, [place] [address] Interface 200 [facility] Electrolyte (Chem 4) Panel (01/31/2021 9:44 PM WOOLEN TESTER) P athologist Signature Potassium, P 4.0 3.6 - 5.2 01/31/2021 STMA mmol/L 10:06 PM WOOLEN TESTER Sodium, P 137 135 - 145 01/31/2021 STMA mmol/L 10:06 PM WOOLEN TESTER Chloride, P 104 98 - 107 01/31/2021 STMA mmol/L 10:06 PM WOOLEN TESTER Bicarbonate, P 24 22 - 29 01/31/2021 STMA mmol/L 10:06 PM WOOLEN TESTER Anion Gap, P 9 7 - 15 01/31/2021 STMA 10:06 PM WOOLEN TESTER Specimen Anatomical Collection Method Collection Time Receive d Time (Source) Location / / Volume Laterality Blood (Blood, 01/31/2021 9:44 PM 02/01/20 21 9:56 Venous) WOOLEN TESTER PM WOOLEN TESTER Gerald England M.D. LAB BLOOD ADD-ON Performing Organization Address City/[facility] Phon e Number [facility] - [address] [place], [place] [address] [facility] [place] [address] [facility] [address] (ABNORMAL) Prothrombin Time (PT) (01/31/2021 9:44 PM WOOLEN TESTER) [facility] gist Method Time Signature Prothrombin 15.5 (H) 9.4 - 12.5 01/31/2021 DTL Time, P sec 10:27 PM WOOLEN TESTER INR 1.4 0.9 - 1.1 01/31/2021 DTL 10:27 PM WOOLEN TESTER Comment: ----ADDITIONAL INFORMATION---- Standard intensity warfarin therapeutic range: 2.0 to 3.0 ?? High intensity warfarin therapeutic rang e: 2.5 to 3.5 Specimen Anatomical Collection Method Collection Time Receive d Time (Source) Location / / Volume Laterality Blood (Blood, 01/31/2021 9:44 PM 02/01/20 Venous) WOOLEN TESTER 10:06 PM WOOLEN TESTER Gerald England M.D. LAB BLOOD ADD-ON Performing Organization Address City/[facility] Phon e Number [facility] - [address] APTT (Activated Partial Thromboplastin Time) (01/31/2021 9:44 PM WOOLEN TESTER) P athologist Signature Activated 35 25 - 37 sec 01/31/2021 DT Partial 10:27 PM WOOLEN TESTER Thrombopl Time, P Specimen Anatomical Collection Method Collection Time Receive d Time (Source) Location / / Volume Laterality Blood (Blood, 01/31/2021 9:44 PM 02/01/20 Venous) WOOLEN TESTER 10:06 PM WOOLEN TESTER Gerald England M.D. LAB BLOOD ADD-ON Performing Organization Address City/[facility] Phon e Number [facility] - [address] (ABNORMAL) Hemoglobin A1c (01/31/2021 9:44 PM WOOLEN TESTER) P athologist Signature Hemoglobin A1c, 6.1 (H) 4.0 - 5.6 01/31/2021 DTL B % 10:18 PM WOOLEN TESTER Comment: Hemoglobin A1c values of 5.7-6.4 percent indicate an increased risk for developing diabetes henrry skinner. In diabetic patients, HbA1c goals should be discussed with healthcare provider. Specimen Anatomical Collection Method Collection Time Receive d Time (Source) Location / / Volume Laterality Blood (Blood, 01/31/2021 9:44 PM 03/06/20 21 Venous) WOOLEN TESTER 10:06 PM WOOLEN TESTER Gerald England M.D. LAB BLOOD ADD-ON Performing Organization Address City/State/ZIP Code Phon e Number [facility] - [address] [place], [place] [address] [facility] [place] [address] [facility] [address] [facility] (ABNORMAL) CBC with Differential, Blood (01/31/2021 9:44 PM WOOLEN TESTER) [facility] Method Time Signature Hemoglobin 11.1 (L) 11.6 - 01/31/2021 DTL 15.0 g/dL 10:12 PM WOOLEN TESTER Hematocrit 34.9 (L) 35.5 - 01/31/2021 DTL 44.9 % 10:12 PM WOOLEN TESTER Erythrocytes 3.84 (L) 3.92 - 01/31/2021 DTL 5.13 10:12 PM WOOLEN TESTER x10(12)/L MCV 90.9 78.2 - 01/31/2021 DTL 97.9 fL 10:12 PM WOOLEN TESTER RBC Distrib Width 14.4 12.2 - 01/31/2021 DTL 16.1 % 10:12 PM WOOLEN TESTER Platelet Count 326 157 - 371 01/31/2021 DTL x10(9)/L 10:12 PM WOOLEN TESTER Leukocytes 6.8 3.4 - 9.6 01/31/2021 DTL x10(9)/L 10:12 PM WOOLEN TESTER Neutrophils 4.91 1.56 - 01/31/2021 DTL 6.45 10:12 PM WOOLEN TESTER x10(9)/L Lymphocytes 1.52 0.95 - 01/31/2021 DTL 3.07 10:12 PM WOOLEN TESTER x10(9)/L Monocytes 0.34 0.26 - 01/31/2021 DTL 0.81 10:12 PM WOOLEN TESTER x10(9)/L Eosinophils 0.03 0.03 - 01/31/2021 DTL 0.48 10:12 PM WOOLEN TESTER x10(9)/L Basophils 0.03 0.01 - 01/31/2021 DTL 0.08 10:12 PM WOOLEN TESTER x10(9)/L Specimen Anatomical Collection Method Collection Time Receive d Time (Source) Location / / Volume Laterality Blood (Blood, 01/31/2021 9:44 PM 02/01/20 21 Venous) WOOLEN TESTER 10:06 PM WOOLEN TESTER Gerald England M.D. LAB BLOOD ADD-ON Performing Organization Address City/State/ZIP Code Phon e Number [facility] - [address] [place], [place] [address] [facility] [place] [address] [facility] [address] [facility] S-TSH (Thyroid-Stimulating Hormone - Sensitive) (01/31/2021 9:44 PM WOOLEN TESTER) P athologist Signature TSH, Sensitive 0.3 0.3 - 4.2 01/31/2021 DTL mIU/L 10:59 PM WOOLEN TESTER Specimen Anatomical Collection Method Collection Time Receive d Time (Source) Location / / Volume Laterality Blood (Blood, 01/31/2021 9:44 PM 02/01/20 21 Venous) WOOLEN TESTER 10:06 PM WOOLEN TESTER Gerald England M.D. LAB BLOOD ADD-ON Performing Organization Address City/State/ZIP Code Phon e Number [facility] - [address] [place], [place] [address] [facility] [place] [address] [place] [address] [facility] AST (Aspartate Aminotransferase) (01/31/2021 9:44 PM WOOLEN TESTER) [facility] Method Time Signature Aspartate 23 8 - 43 01/31/2021 DTL Aminotransferase U/L 10:59 PM WOOLEN TESTER (AST), S Specimen Anatomical Collection Method Collection Time Receive d Time (Source) Location / / Volume Laterality Blood (Blood, 01/31/2021 9:44 PM 02/01/20 21 Venous) WOOLEN TESTER 10:06 PM WOOLEN TESTER Gerald England M.D. LAB BLOOD ADD-ON Performing Organization Address City/State/ZIP Code Phon e Number [facility] - [address] [place], [place] [address] [facility] [place], [place] [id number] [place] [address] [facility] ALT (Alanine Aminotransferase) (01/31/2021 9:44 PM WOOLEN TESTER) [facility] Method Time Signature Alanine 15 7 - 45 01/31/2021 DTL Aminotransferase U/L 10:59 PM WOOLEN TESTER (ALT), S Specimen Anatomical Collection Method Collection Time Receive d Time (Source) Location / / Volume Laterality Blood (Blood, 01/31/2021 9:44 PM 02/01/20 21 Venous) WOOLEN TESTER 10:06 PM WOOLEN TESTER Gerald England M.D. LAB BLOOD ADD-ON Performing Organization Address City/State/ZIP Code Phon e Number [facility] - [address] [place], [place] [address] [facility] [place] [address] [facility] [address] documented in [...] tablet 1,000 mg Given 02/03/2021 6:56 AM WOOLEN TESTER 1,000 mg (TYLENOL) 1,000 mg, oral, Every 6 hours PRN, mild pain or score 1-3 of 10, moderate pain or score 4-6 of 10, headaches, Starting on 02/01/21 at 0210 Given 02/02/2021 2:36 PM WOOLEN TESTER 1,000 mg Given 02/02/2021 8:53 AM WOOLEN TESTER 1,000 mg albuterol 90 mcg/actuation inhaler 2 puf f Given 02/03/2021 4:29 AM WOOLEN TESTER 2 puffs 2 puff, inhalation, Every 6 hours PRN, wheezing, shortness of breath, Starting on 02/01/21 at 1115 apixaban tablet 5 mg (ELIQUIS) Given 02/03/2021 9:30 AM WOOLEN TESTER 5 mg 5 mg, oral, 2 times daily, First dose on 02/02/21 at 2100 Given 02/02/2021 8:09 PM WOOLEN TESTER 5 mg aspirin tablet 325 mg Given 02/02/2021 8:11 AM WOOLEN TESTER 325 mg 325 mg, oral, Daily, First dose on 02/01/21 at 1030 Given 02/01/2021 10:54 AM WOOLEN TESTER 325 mg atorvastatin tablet 40 mg (LIPITOR) Given 02/02/2021 8:09 PM WOOLEN TESTER 40 mg 40 mg, oral, Daily at [...] 25 m cg Given 02/03/2021 9:29 AM WOOLEN TESTER 25 mcg 25 mcg, oral, Daily, First dose on 02/01/21 at 0900, cholecalciferol (vitamin D3) orderable was interchanged for cholecalciferol (vitamin D3) tablet/capsule Given 02/02/2021 8:10 AM WOOLEN TESTER 25 mcg Given 02/01/2021 9:11 AM WOOLEN TESTER 25 mcg cyanocobalamin tablet 2,000 mcg (VITAMIN Given 02/03/2021 9: 28 AM WOOLEN TESTER 2,000 mcg B12) 2,000 mcg, oral, Daily, First dose on 02/01/21 at 0900 Given 02/02/2021 8:08 AM WOOLEN TESTER 2,000 mcg Given 02/01/2021 9:11 AM WOOLEN TESTER 2,000 mcg diazePAM tablet 10 mg (VALIUM) Given 02/03/2021 10:51 AM WOOLEN TESTER 10 mg 10 mg, oral, 2 times daily PRN, anxiety, Starting on 02/01/21 at 1016 Given 02/02/2021 10:24 PM WOOLEN TESTER 10 mg Given 02/02/2021 8:53 AM WOOLEN TESTER 10 mg docusate sodium 283 mg/5 mL enema 1 enem a (ENEMEEZ) 1 enema, rectal, 2 times daily PRN, cons tipation, Starting on 01/31/21 at 2125, If no bowel movement within 24 hours of starting bisac odyl FLUoxetine capsule 80 mg (PROzac) Given 02/03/2021 9:28 AM WOOLEN TESTER 80 mg 80 mg, oral, Daily, First dose on 02/01/21 at 0900, FLUoxetine orderable was interchanged for FLUoxetine tablet/capsule Given 02/02/2021 8:10 AM WOOLEN TESTER 80 mg Given 02/01/2021 9:10 AM WOOLEN TESTER 80 mg folic acid tablet 800 mcg Given 02/03/2021 9:29 AM WOOLEN TESTER 800 mcg 800 mcg, oral, Every morning, First dose on Tue02/01/21 at 0900 Given 02/02/2021 8:14 AM WOOLEN TESTER 800 mcg Given 02/01/2021 10:00 AM WOOLEN TESTER 800 mcg furosemide tablet 40 mg (LASIX) Given 02/03/2021 9:29 AM WOOLEN TESTER 40 mg 40 mg, oral, 2 times daily, First dose on Tue02/02/21 at 0900 Given 02/02/2021 6:25 PM WOOLEN TESTER 40 mg Given 02/02/2021 8:10 AM WOOLEN TESTER 40 mg gadobutrol injection 0.01-30 mL (GADAVIS T) Given 02/03/2021 12:35 PM WOOLEN TESTER 8 mL 0.01-30 mL, intravenous, Once in imaging, contrast, Starting on Tue02/03/21 at 1235, For 1 dose, Imaging Protocol Orders, Dose per Radiant Medication Guidelines heparin (porcine) Given 02/02/2021 6:29 AM WOOLEN TESTER 5,000 Units Left Lower Abdomen injection 5,000 Units 5,000 Units, subcutaneous, Every 8 hours scheduled, First dose on Tue02/01/21 at 0600 Given 02/01/2021 9:17 PM WOOLEN TESTER 5,000 Units Right Lower Abdomen Given 02/01/2021 1:56 PM WOOLEN TESTER 5,000 Units Right Lower Abdomen lamoTRIgine tablet 200 mg (LaMICtal) Given 02/03/2021 9:29 AM WOOLEN TESTER 200 mg 200 mg, oral, 2 times daily, First dose (after last modification) on 01/31/21 at 2245 Given 02/02/2021 8:09 PM WOOLEN TESTER 200 mg Given 02/02/2021 8:11 AM WOOLEN TESTER 200 mg lidocaine 5 % 1 patch Medication Applied 01/31/2021 10:44 PM 1 patch Upper Back (LIDODERM) WOOLEN TESTER 1 patch, transdermal, Administer over 12 Hours, Daily, First dose on 01/31/21 at 2200, Remove after 12 hours. lidocaine 5 % ointment 1 application Given 02/02/2021 2:33 A M WOOLEN TESTER 1 application (XYLOCAINE) 1 application, topical, 3 times daily PRN, mild pain or score 1-3 of 10, Starting on Tue02/01/21 at 1114, MAX of 20 g of ointment/day Given 02/01/2021 5:18 PM WOOLEN TESTER 1 application loratadine tablet 10 mg (CLARITIN) Given 02/03/2021 9:30 AM WOOLEN TESTER 10 mg 10 mg, oral, Daily, First dose on Tue02/01/21 at 0900, loratadine 10 mg oral daily was interchanged for cetirizine 5 mg oral twice daily Given 02/02/2021 8:11 AM WOOLEN TESTER 10 mg Given 02/01/2021 9:12 AM WOOLEN TESTER 10 mg magnesium oxide tablet 400 mg (MAG-OX) Given 02/02/2021 8:09 PM WOOLEN TESTER 400 mg 400 mg, oral, Daily at bedtime, First dose on Tue02/01/21 at 2100, magnesium oxide 400 mg daily was interchanged for magnesium gluconate 500 mg daily Given 02/01/2021 9:17 PM WOOLEN TESTER 400 mg meclizine tablet 25 mg (ANTIVERT) Given 02/02/2021 3:01 AM WOOLEN TESTER 25 mg 25 mg, oral, 3 times daily PRN, dizziness, Starting on Tue02/01/21 at 0211 Given 02/01/2021 9:19 AM WOOLEN TESTER 25 mg meclizine tablet 25 mg (ANTIVERT) Given 02/02/2021 8:09 PM WOOLEN TESTER 25 mg 25 mg, oral, 4 times [...] 1 patch Left Shoulder patch (NICODERM CQ) WOOLEN TESTER 1 patch, transdermal, Administer over 24 Hours, Daily, First dose on Tue02/01/21 at 0900 Medication Applied 02/02/2021 8:14 AM WOOLEN TESTER 1 patch Right Arm Medication Applied 02/01/2021 9:13 AM WOOLEN TESTER 1 patch Left Shoulder nicotine 21 mg/24 hr 1 Medication Applied 02/03/2021 2:55 PM 1 patch Left Shoulder patch (NICODERM CQ) WOOLEN TESTER 1 patch, transdermal, Administer over 24 Hours, Daily, First dose on Tue02/03/21 at 1330 ondansetron ODT disintegrating tablet 4 mg Given 02/02/2021 10:2 4 PM WOOLEN TESTER 4 mg (ZOFRAN-ODT) 4 mg, oral, Every 8 hours PRN, nausea, Starting on 01/31/21 at 2228, When splitting ODT at bedside, handle with gloves and a pill splitter to prevent moisture contact. Given 02/02/2021 2:36 PM WOOLEN TESTER 4 mg Given 02/01/2021 1:12 AM WOOLEN TESTER 4 mg oxyCODONE IR tablet 10 mg (ROXICODONE) Given 02/03/2021 5:02 PM WOOLEN TESTER 10 mg 10 mg, oral, Every 6 hours PRN, moderate pain or score 4-6 of 10, Starting on 01/31/21 at 2229 Given 02/03/2021 2:42 AM WOOLEN TESTER 10 mg Given 02/02/2021 8:08 PM WOOLEN TESTER [address] tablet 40 mg (PROTONIX) Given 02/03/2021 4:58 PM WOOLEN TESTER 40 mg 40 mg, oral, 2 times daily before breakfast and dinner, First dose on 02/01/21 at 0700, pantoprazole 40 mg oral twice daily was interchanged for esomeprazole 20 or 40 mg oral twice daily Swallow whole. Do NOT crush, chew, or split tablet. Given 02/03/2021 6:56 AM WOOLEN TESTER 40 mg Given 02/02/2021 6:25 PM WOOLEN TESTER 40 mg pregabalin capsule 150 mg (LYRICA) Given 02/01/2021 9:12 AM WOOLEN TESTER 150 mg 150 mg, oral, Every morning, First dose on 02/01/21 at 0900 pregabalin capsule 300 mg (LYRICA) Given 01/31/2021 11:16 PM WOOLEN TESTER 300 mg 300 mg, oral, Every evening, First dose on 01/31/21 at 2300 pregabalin capsule 300 mg (LYRICA) Given 02/03/2021 9:28 AM WOOLEN TESTER 300 mg 300 mg, oral, Every morning, First dose (after last modification) on 02/02/21 at 0900 Given 02/02/2021 8:10 AM WOOLEN TESTER 300 mg pregabalin capsule 600 mg (LYRICA) Given 02/02/2021 8:09 PM WOOLEN TESTER 600 mg 600 mg, oral, Daily at bedtime, First dose (after last modification) on 02/01/21 at 2100 Given 02/01/2021 9:17 PM WOOLEN TESTER 600 mg promethazine injection 6.25 mg (PHENERGA N) Given 02/01/2021 12:47 PM WOOLEN TESTER 6.25 mg 6.25 mg, intravenous, Once, On 02/01/21 at 1030, For 1 dose QUEtiapine tablet 50 mg (SEROquel) Given 02/03/2021 12:39 AM WOOLEN TESTER 50 mg 50 mg, oral, Bedtime PRN, agitation/sleep, Starting on 02/01/21 at 1310 rOPINIRole tablet 2 mg (REQUIP) Given 02/03/2021 2:42 AM WOOLEN TESTER 2 mg 2 mg, oral, Daily PRN, restless legs, Starting on 01/31/21 at 2233 sennosides-docusate sodium 8.6-50 mg per Given 02/03/2021 9: 27 AM WOOLEN TESTER 2 tablets tablet 2 tablet (SENOKOT-S) 2 [...] 300 mg (ZONEGRAN) Given 02/03/2021 9:28 AM WOOLEN TESTER 300 mg 300 mg, oral, 2 times daily, First dose (after last modification) on 01/31/21 at 2245, Swallow whole. Do NOT crush, chew or open capsule. Given 02/02/2021 8:09 PM WOOLEN TESTER 300 mg Given 02/02/2021 8:53 AM WOOLEN TESTER 300 mg documented in this encounter Active and Recently Administered Medications Times are shown in WOOLEN TESTER. Scheduled Medication Order 02/01/2021 02/02/2021 02/03/2021 apixaban tablet 5 mg (ELIQUIS) 2008 (Given - Pro vider: Marlene Grover R.N.) 6961 (Given - Provider: Karma Cervantes R.N.) 5 [...] Rudolph R.N.) 0853 (Given - Provider: Leatha Vasquez R.N.)2008 (Given [...] R.NBritton) 1 application, topical, 3 times daily [place] N, mild pain or score 1-3 of [...] mg, rectal, 2 times daily PRN, vicky carracso, Starting on 01/31/21 at 2125
Suppository is the preference.
documented in this encounter Additional Health Concerns Infection Onset Date Last Indicated Resolved Time COVID19 Pending 01/31/2021 01/31/2021 01/31/2021 10:53 PM WOOLEN TESTER Assessment Noted Time PHQ-9 Depression Total Score: 23 02/02/2021 11:[address] documented as of this encounter
--- OUTSIDE RECORDS SUMMARY | 2022-08-01 07:48 | XMS_ITS | Encounter Summary ---
:1965 Author Organization [facility] Address [address] [place] [id number] Care Team Providers Name Role Phone Unavailable Primary Care Provider Unavailable Reason for Visit Reason Comments Follow-up [facility] Patient Encounter Details Date Type Department Care Team Description 12/29/2020 Clinical [facility] Neurology jimmy Celaya M.D. Patient) [place], [facility] [address] [place], [place] [address] [place] [id number] [place], [place] [phone] (Work) [phone] Social History Tobacco Use Types Packs/Day Years [...] you attend sikhism or Patient refused 2021 islam services? Do [...] her know PCP needs to prescribe meclizine. DISPATCHER Telephone Encounter - Allyssa Amaya - 12/29/2020 [...] ambulance for; one of which lasted over dcc-wzp-n-half days. She is having headaches, etc. 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
--- OUTSIDE RECORDS SUMMARY | 2022-08-01 07:48 | XMS_ITS | Encounter Summary ---
:[address] [facility] Address [address] [place] [address] Care Team Providers Name Role Phone Unavailable Primary Care Provider Unavailable Encounter Details Date Type Department Care Team Description 12/31/2020 Orders Only Department of Robert Diehl Stroke Cereb rovascular Accident Personal History (Primary Dx); Neurology in [place], M[place]ittonD. Thrombosis Arterial (HCC) [place], [place] 200 [facility] 200 [place] [phone] Social History Tobacco Use Types Packs/Day Years [...] you attend quaker or Patient refused 2021 anglican services? Do [...]
--- OUTSIDE RECORDS SUMMARY | 2022-08-01 07:48 | XMS_ITS | Encounter Summary ---
:1965 Author Organization [facility] Address [address] [place] [address] Care Team Providers Name Role Phone Unavailable Primary Care Provider Unavailable Encounter Details Date Type Department Care Team Description 01/20/2021 Clinical Communication Department of Elvira Villalta, Neurology in [place], [place] [address] [place] [address] [address] [place] [phone] Social History Tobacco Use Types Packs/Day Years [...] you attend orthodox or Patient refused 2021 moravian services? Do [...]
--- OUTSIDE RECORDS SUMMARY | 2022-08-01 07:49 | XMS_ITS | Encounter Summary ---
:1965 Author Organization [facility] Address [address] [place] [address] Care Team Providers Name Role Phone Unavailable [...] you attend adventism or Patient refused 2021 amish services? Do [...] 11/29/2019 3:10 Results for this EXAM PM MORTUARY OPERATIONS MANAGER procedure are i n the results section. documented in this encounter Results NOSE-Otorhinolaryngology Image Exam (11/29/2019 3:10 PM MORTUARY OPERATIONS MANAGER) Specimen (Source) Anatomical Collection Method Collection Time Re ceived Time Location / / Volume Laterality 11/29/2019 3:08 PM MORTUARY OPERATIONS MANAGER Narrative [facility]IM[facility] - 11/29/2019 3:58 PM MORTUARY OPERATIONS MANAGER This order has been created and [...]
--- OUTSIDE RECORDS SUMMARY | 2022-08-01 07:49 | XMS_ITS | Encounter Summary ---
:1965 Author Organization [facility] Address [address] [place] [address] Care Team Providers Name Role Phone Unavailable [...] you attend pentecostal or Patient refused 2021 moravian services? Do [...] 01/08/2020 3:15 Results for this EXAM PM ADMINISTRATIVE SUPPORT SPECIALIST procedure are i n the results section. documented in this encounter Results NOSE-Otorhinolaryngology Image Exam (01/08/2020 3:15 PM ADMINISTRATIVE SUPPORT SPECIALIST) Specimen (Source) Anatomical Collection Method Collection Time Re ceived Time Location / / Volume Laterality 01/08/2020 3:11 PM ADMINISTRATIVE SUPPORT SPECIALIST Narrative [facility] - 01/08/2020 3:29 PM ADMINISTRATIVE SUPPORT SPECIALIST This order has been created and auto-finalized [...]
--- OUTSIDE RECORDS SUMMARY | 2022-08-01 07:49 | XMS_ITS | Encounter Summary ---
:1965 Author Organization [facility] Address [address] [place] [address] Care Team Providers Name Role Phone Unavailable Primary Care Provider Unavailable Encounter Details Date Type Department Care Team Description 12/06/2019 Clinical Communication Department of Robert Diehl, Neurology in .. [place], [place] 200 [facility] 200 [place] [address] [phone] Social History Tobacco Use Types Packs/Day Years [...] you attend latter-day or Patient refused 2021 anabaptist services? Do [...] during her next visit. Janis Preston R.N. AL ACCOUNT MANAGER Telephone Encounter - Janis Preston R.N. - 12/06/2019 1:35 PM CST ----- Message from Robert Diehl M.D. sent at 12/03/2019 10:17 AM GLOBAL ACCOUNT MANAGER ----- Regarding: FW: Overnight oximetry Good morning Would you be able to reach out and let this patient know the oximetry was unsuccessful and would need to be repeated and ask if they would like to do this? Thank you! Electronically signed by: Robert Diehl M.D. 12/03/19 10:18 AM GLOBAL ACCOUNT MANAGER ----- Message ----- From: Carolynn Stokes Sent: 11/29/2019 2:39 PM GLOBAL ACCOUNT MANAGER To: Robert Diehl M.D. Subject: Overnight oximetry Your patients overnight oximetry test did not have recorded data of sufficient duration for an interpretation to be completed and was returned four months after appointment. Therefore an overnight oximetry report will not be generated to [facility]. Please contact your clinical assistant office manager to reschedule an overnight oximetry test if you wish the patient to repeat an overnight oximetry test. AL ACCOUNT MANAGER documented in this encounter Plan of [...] Organization Address City/State/ZIP Code Phon e Number RYE PATRICIA EA documented in this encounter Visit Diagnoses Diagnosis Fatigue - Primary Fatigue documented in this encounter Additional Health Concerns Assessment Noted Time PHQ-9 Depression Total Score: 5 04/05/2019 8:00 AM CDT documented as of this encounter
--- OUTSIDE RECORDS SUMMARY | 2022-08-01 07:49 | XMS_ITS | Encounter Summary ---
:1965 Author Organization [facility] Address [address] [place] [address] Care Team Providers Name Role Phone Unavailable Primary Care Provider Unavailable Reason for Visit Outpatient (Routine) - Closed Specialty Diagnoses / Procedures Referred By Contact Refer red To Contact General Surgery Diagnoses Rhinosinusitis Chronic Jey Santana M.D. [facility] [address] [place] [phone] Referral ID Status Reason Start Date Expiration Date Visits Requ ested Visits Authorized [id number] Closed 11/08/2019 11/07/2020 1 1 Encounter Details Date Type Department Care Team Description 11/29/2019 Comprehensive Visit Preoperative Jey Santana M.D. [address] [place] [phone] Preanesthetic Medical Exam (Primary Dx); Evaluation Center in Lanre Carvajal M.D. [address] [place] [phone] Rhinosinusitis Chronic [place], [place] [address] [place] [phone] Social History Tobacco Use Types Packs/Day Years [...] you attend yazidism or Patient refused 2021 jehovah's witness services? [...] Comments Blood Pressure 108/74 11/29/2019 12:45 PM ROBOTIC MAINTENANCE TECHNICIAN Pulse 104 11/29/2019 12:45 PM ROBOTIC MAINTENANCE TECHNICIAN Temperature 36.5 ??C (97.7 ??F) 11/29/2019 12:45 PM ROBOTIC MAINTENANCE TECHNICIAN Respiratory Rate - - Oxygen Saturation 96% 11/29/2019 12:45 PM ROBOTIC MAINTENANCE TECHNICIAN Inhaled Oxygen Concentration - - Weight 76.4 kg (168 lb 6.9 oz) 11/29/2019 12:45 PM ROBOTIC MAINTENANCE TECHNICIAN Height 151.7 cm (4' 11.72) 11/29/2019 12:45 PM ROBOTIC MAINTENANCE TECHNICIAN Body Mass Index 33.2 11/29/2019 12:45 PM ROBOTIC MAINTENANCE TECHNICIAN documented in this encounter H&P Notes Lanre Carvajal M.D. - 11/29/2019 12:45 PM CST Preoperative Medical Evaluation Patient Name: Angie Mosquera Age: 54 y.o. Date of : 1965 Patient Address: [address] [place] [phone] Primary Care Provider: No primary care provider [...] #11 Patent Foramen Ovale (HCC) Noted on [id number]/ ECHO otherwise normal. I will not pursue anything further TIC MAINTENANCE TECHNICIAN documented in this encounter Plan of Treatment Not on filedocumented as of this encounter Results Creatinine with Estimated GFR - for Lab Draw (11/29/2019 11:30 AM ROBOTIC MAINTENANCE TECHNICIAN) P athologist Signature Creatinine 0.98 0.59 - 11/29/2019 DTL 1.04 mg/dL 1:05 PM ROBOTIC MAINTENANCE TECHNICIAN eGFR-Non 65 >=60 11/29/2019 DTL Black/ mL/min/BSA 1:05 PM ROBOTIC MAINTENANCE TECHNICIAN Guyanese Comment: ----ADDITIONAL INFORMATION---- Estimated GFR calculated using the 2009 CKD_EPI creatinine equation. eGFR-Black/ 75 >=60 mL/min/BSA 2019 1:05 PM ROBOTIC MAINTENANCE TECHNICIAN DTL Comment: ----ADDITIONAL INFORMATION---- Estimated GFR calculated using the 2009 CKD_EPI creatinine equation. Specimen Anatomical Collection Method Collection Time Receive d Time (Source) Location / / Volume Laterality Blood (Blood, 11/29/2019 11:30 11/29/2019 Venous) AM ROBOTIC MAINTENANCE TECHNICIAN 11:50 AM ROBOTIC MAINTENANCE TECHNICIAN Miranda Collado APRN, C.N.P., M.S.N. LAB BLOOD ADD-ON Performing Organization Address City/State/ZIP Code Phon e Number [facility] - [address] [place], [place] [address] [place] [address] [facility] [address] documented in this encounter Visit Diagnoses Diagnosis Preanesthetic Medical Exam - Primary Rhinosinusitis Chronic documented in this encounter Additional Health Concerns Assessment Noted Time PHQ-9 Depression Total Score: 5 04/05/2019 8:00 AM CDT documented as of this encounter
--- OUTSIDE RECORDS SUMMARY | 2022-08-01 07:49 | XMS_ITS | Encounter Summary ---
:1965 Author Organization [facility] Address [address] [place] [address] Care Team Providers Name Role Phone Unavailable Primary Care Provider Unavailable Reason for Visit Reason Comments Michel Encounter Details Date Type Department Care Team Description 09/04/2020 Clinical Communication Department of Robert Diehl W8B/Scharf Neurology in [place], [place] [address] [place] [address] 200 [place] [phone] Social History Tobacco Use Types Packs/Day Years [...] you attend mu-ism or Patient refused 2021 scientology services? Do [...]
--- OUTSIDE RECORDS SUMMARY | 2022-08-01 07:49 | XMS_ITS | Encounter Summary ---
:1965 Author Organization [facility] Address [address] [place] [address] Care Team Providers Name Role Phone Unavailable Primary Care Provider Unavailable Reason for Referral Outpatient (Routine) - Closed Specialty Diagnoses / Procedures Referred By Contact Clyde bains To Contact Neurology Robert Diehl M. D. [facility] [address] [place] [address] Referral ID Status Reason Start Date Expiration Date Visits Requ ested Visits Authorized [id number] Closed 09/15/2020 09/15/2021 1 1 Reason for Visit Appointment Request (Routine) - Closed Specialty Diagnoses / Procedures Referred By Contact Clyde bains To Contact Neurology Referral ID Status Reason Start Date Expiration Date Visits Requ ested Visits Authorized [id number] Closed 07/31/2020 07/31/2021 1 1 Encounter Details Date Type Department Care Team Description 09/15/2020 Virtual Visit Department of Robert Diehl [place] An eurysm Nonruptured (HCC) (Primary Dx); Neurology in M.D. Nicotine Dependence ; [place], [place] [address] [facility] Aneurysm Cerebral Unruptured (HCC) [address] [place] [phone] Social History Tobacco Use Types Packs/Day Years [...] via the telephone and not in a [id number] manner. Ms. Mosquera is a 55-year-old woman [...] Name Type Priority Associated Diagnoses Order S [facility] Neurology office Outpatient Referral Routine Expe [...] nt right vertebral artery. RADHA, MCA, and machine i trimmer are patent. Neck MRA: Conventional three-vessel arch [...] nt right vertebral artery. RADHA, MCA, and machine i trimmer are patent. Neck MRA: Conventional three-vessel arch [...]
--- OUTSIDE RECORDS SUMMARY | 2022-08-01 07:49 | XMS_ITS | Encounter Summary ---
:1965 Author Organization [facility] Address [address] [place] [address] Care Team Providers Name Role Phone Unavailable Primary Care Provider Unavailable Encounter Details Date Type Department Care Team Description 09/15/2020 Ancillary Procedure Department of Robert Diehl Aneurysm Radiology jimmy Celaya M.D. Nonruptured (HCC) [place], [place] [address] [facility] [address] [place] [phone] Social History Tobacco Use Types Packs/Day Years [...] you attend presybeterian or Patient refused 2021 nondenominational services? Do [...] nt right vertebral artery. RADHA, MCA, and poker dealer are patent. Neck MRA: Conventional three-vessel arch [...] nt right vertebral artery. RADHA, MCA, and poker dealer are patent. Neck MRA: Conventional three-vessel arch [...]
--- OUTSIDE RECORDS SUMMARY | 2022-08-01 07:49 | XMS_ITS | Encounter Summary ---
:1965 Author Organization [facility] Address [address] [place] [address] Care Team Providers Name Role Phone Unavailable Primary Care Provider Unavailable Encounter Details Date Type Department Care Team Description 08/05/2020 Clinical Communication Department of Honorio, Otorhinolaryngology in [place], [place] [address] [place], [place] [phone] [facility] [phone] [place] [phone] Social History Tobacco Use Types Packs/Day Years [...] you attend pentecostalism or Patient refused 2021 church services? Do [...] called patient to schedule COVID testing at [place] prior to appointment. Didn't answer so jessica [...]
--- OUTSIDE RECORDS SUMMARY | 2022-08-01 07:49 | XMS_ITS | Encounter Summary ---
:1965 Author Organization [facility] Address [address] [place] [address] Care Team Providers Name Role Phone Unavailable Primary Care Provider Unavailable Encounter Details Date Type Department Care Team Description 01/07/2020 Diagnostic Division of Pulmonary Akhil Diehl M.D. [facility], [facility] Medicine in [place], [facility] [address] [place], [place] 200 [facility] [address] [place] [address] [phone] Social History Tobacco Use Types Packs/Day Years [...] you attend jewish or Patient refused 2021 hoahaoism services? Do [...] Organization Address City/State/ZIP Code Phon e Number [facility] documented in this encounter Visit Diagnoses Diagnosis Fatigue documented in this encounter Additional Health Concerns Assessment Noted Time PHQ-9 Depression Total Score: 5 04/05/2019 8:00 AM CDT documented as of this encounter
--- OUTSIDE RECORDS SUMMARY | 2022-08-01 07:49 | XMS_ITS | Encounter Summary ---
:1965 Author Organization [facility] Address [address] [place] [address] Care Team Providers Name Role Phone Unavailable Primary Care Provider Unavailable Encounter Details Date Type Department Care Team Description 12/08/2019 Documentation Department of Darlin Olmedo, Otorhinolaryngology in .[place], [place] [address] [place] [address] 200 [place] [phone] Social History Tobacco Use Types Packs/Day Years [...] Chronicpain for spine pathology with oxycodone use floral assistant. Additional doses of oxycodone not sufficient for [...] she is currently having. -Dr. Clemente Medley NIA BOX TENDER documented in this encounter Plan of Treatment Not on filedocumented as of this encounter Visit Diagnoses Not on filedocumented in this encounter Additional Health Concerns Assessment Noted Time PHQ-9 Depression Total Score: 5 04/05/2019 8:00 AM CDT documented as of this encounter
--- OUTSIDE RECORDS SUMMARY | 2022-08-01 07:49 | XMS_ITS | Encounter Summary ---
:[address] [facility] Address [address] [place] [address] Care Team Providers Name Role Phone Unavailable Primary Care Provider Unavailable Reason for Visit Reason Onset Date Comments Medication Question 01/08/2020 Encounter Details Date Type Department Care Team Description 01/08/2020 Clinical Department of [place], Medication Communication Otorhinolaryngology in Wolf[place] Manuel [place], [place] Lilian [address] [place] [address] [place] [phone] [place] [address] Social History Tobacco Use Types Packs/Day Years [...] you attend orthodoxy or Patient refused 2021 adventist services? Do [...] not covered. Patient will do regular Flonase IC SPACE ATTENDANT Telephone Encounter - Donna Martines - 01/08/2020 4:21 PM CST [facility] called about the Fluticasone Propionate (Flonase) prescription that was put through today. The insurance will not cover it because at the end of the SIG it says Sensimist. Please call the pharmacy at [phone], or place another order. Thank you, Donna IC SPACE ATTENDANT documented in this encounter Plan of Treatment Not on filedocumented as of this encounter Visit Diagnoses Not on filedocumented in this encounter Additional Health Concerns Assessment Noted Time PHQ-9 Depression Total Score: 5 04/05/2019 8:00 AM CDT documented as of this encounter
--- OUTSIDE RECORDS SUMMARY | 2022-08-01 07:49 | XMS_ITS | Encounter Summary ---
:1965 Author Organization [facility] Address [address] [place] [address] Care Team Providers Name Role Phone Unavailable Primary Care Provider Unavailable Reason for Visit Outpatient (Routine) - Closed Specialty Diagnoses / Procedures Referred By Contact Refer red To Contact Otorhinolaryngology Darlin Olmedo M.D . [facility] [address] [place] [phone] Referral ID Status Reason Start Date Expiration Date Visits Requ ested Visits Authorized [id number] Closed 12/18/2019 12/17/2020 1 1 Encounter Details Date Type Department Care Team Description 01/08/2020 Office Visit Department of Darlin Olmedo Mucocele Nasa l Sinus Otorhinolaryngology jimmy Brumfield M.D. (Primary Dx) [address] [place] [phone] Social History Tobacco Use Types [...] you attend episcopal or Patient refused 2021 scientologist services? Do you belong to any clubs or No 05/17/2022 organizations such as episcopal groups, unions, fraEVault or athletic groups, or school groups? How [...] She will continue saline irrigations and Flonase. WEB ARCHITECT Associated attestation - Darlin Olmedo M.D. - 01/16/2020 5:45 PM JAVA WEB ARCHITECT I saw and evaluated the patient, participating [...]
--- OUTSIDE RECORDS SUMMARY | 2022-08-01 07:49 | XMS_ITS | Encounter Summary ---
:1965 Author Organization [facility] Address [address] [place] [address] Care Team Providers Name Role Phone Unavailable Primary Care Provider Unavailable Reason for Visit Reason Comments Michel Encounter Details Date Type Department Care Team Description 09/11/2020 Clinical Communication Department of Robert Diehl W8B/Scharf Neurology in [place], [place] 200 [facility] 200 [place] [phone] [phone] Social History Tobacco Use Types Packs/Day Years [...] you attend hoahaoism or Patient refused 2021 anabaptist services? Do [...]
--- OUTSIDE RECORDS SUMMARY | 2022-08-01 07:49 | XMS_ITS | Encounter Summary ---
:1965 Author Organization [facility] Address [address] [place] [address] Care Team Providers Name Role Phone Unavailable Primary Care Provider Unavailable Encounter Details Date Type Department Care Team Description 08/06/2020 Clinical Communication Department of Honorio, Otorhinolaryngology in [place], [place] [address] [place] [address] [facility] [phone] [place] [phone] Social History Tobacco Use Types Packs/Day Years [...] you attend druze or Patient refused 2021 mosque services? Do [...] states that she had them done at [facility]. I called the facility and requested that [...] she had a CT Scan today in [place]. If her doctor there feels she needs [...]
--- OUTSIDE RECORDS SUMMARY | 2022-08-01 07:49 | XMS_ITS | Encounter Summary ---
:1965 Author Organization [facility] Address [address] [place] [address] Care Team Providers Name Role Phone Unavailable Primary Care Provider Unavailable Encounter Details Date Type Department Care Team Description 12/07/2019 Surgery RST ROMB LUISA OR Darlin Olmedo, SINUSOTOMY ENDOSCOPY [address] [facility] [place] [address] [address] [place] [address] [place] [phone] Social History Tobacco Use Types Packs/Day Years [...] you attend uatsdin or Patient refused 2021 yarsani services? Do [...] sinus rinse kit (jose ramon Dalal or Satanta). - Follow the directions on the bottle [...] of discharge, please contact our office at [phone] to inquire. If you are to follow [...] call the [facility] Java Sdet at and ask to speak to the ENT resident production operations inspector. S MELT OPERATOR AttachmentsThe following attachments cannot be sent through Care Everywhere.Your Scopolamine Patch (Moroccan)documented in this encounter Medications at Time of [...] Extradural computer navigation was registered according to product inspection supervisor's guidelines and confirmed to be accurate within [...] 5 mL Implants None Darlin Olmedo M.D. S MELT OPERATOR Brief Op Note - Jey Santana M.D. [...] Loss None Implants None Jey Santana M.D. 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 Case Notes COMPOSITE MECHANIC 10:37 documented in this encounter Visit Diagnoses Diagnosis Rhinosinusitis Chronic Mucocele Nasal Sinus documented in this encounter Administered Medications Inactive Administered Medications - up to 3 most recent administrations Medication Order MAR Action Action Date Dose Rate Site acetaminophen injection 1,000 New Bag 12/07/2019 2:38 PM 1,000 mg 400 mL/hr mg (OFIRMEV) GLASS MELT OPERATOR 1,000 mg, intravenous, at 400 mL/hr, Administer [...] 1,000 mg (TYLENOL) Given 12/07/2019 12:06 PM GLASS MELT OPERATOR 1,000 mg 1,000 mg, oral, Once, On Tue12/07/19 at 1200, For 1 dose, Pre-Op aprepitant capsule 40 mg (EMEND) Given 12/07/2019 12:06 PM GLASS MELT OPERATOR 40 mg 40 mg, oral, Once as needed, prevent ponv, Starting on Tue12/07/19 at 1145, For 1 dose, Pre-Op caffeine tablet 200 mg Given 12/07/2019 12:06 PM GLASS MELT OPERATOR 200 mg 200 mg, oral, Once as needed, pre-op to prevent caffeine withdrawal headache or to enhance emergence from anesthesia/sedation, Starting on Tue12/07/19 at 1145, For 1 dose, Pre-Op, With sips cocaine 4 % external solution Given 12/07/2019 1:10 PM GLASS MELT OPERATOR 4 mL Other As needed, Starting on Tue12/07/19 at 1310, Intra-Op droperidol injection 0.625 mg (INAPSINE) Given 12/07/2019 2:37 PM GLASS MELT OPERATOR 0.625 mg 0.625 mg, intravenous, Every 6 [...] 25 mcg (SUBLIMAZE) Given 12/07/2019 2:32 PM GLASS MELT OPERATOR 25 mcg 25 mcg, intravenous, Every 2 min PRN, For pain 4 or greater (maximum 100 mcg). If max dose of Fentanyl is reached and if pain is greater than 4, discontinue Fentanyl: give Hydromorphone, Starting on Tue12/07/19 at 1145, Pre-Op ketamine injection 10 mg (KETALAR) Given 12/07/2019 2:37 PM GLASS MELT OPERATOR 10 mg 10 mg, intravenous, Once as needed, Pain sedation mismatch AND RASS score less than -1, Starting on Tue12/07/19 at 1430, For 1 dose, PACU (only) lactated ringers New Bag 12/07/2019 3:48 PM GLASS MELT OPERATOR 20 mL/hr 20 mL/hr 20 mL/hr, intravenous, Continuous, Starting on Tue12/07/19 at 1400, PACU & Post-Op Continued from OR 12/07/2019 2:25 PM GLASS MELT OPERATOR 20 mL/hr 20 mL/hr lidocaine-EPINEPHrine 1 %-1:100,000 Given 12/07/2019 1:45 PM GLASS MELT OPERATOR 2 mL Other injection (XYLOCAINE W/EPI) As needed, Starting on Tue12/07/19 at 1320, Intra-Op Given 12/07/2019 1:20 PM GLASS MELT OPERATOR 1.5 mL Other metoprolol tablet 12.5 mg [...] 2 mg (VERSED) Given 12/07/2019 12:28 PM GLASS MELT OPERATOR 2 mg 2 mg, intravenous, Once as needed, anxiety, sedation, Starting on Tue12/07/19 at 1145, For 1 dose, Pre-Op ondansetron ODT disintegrating tablet 4 mg Given 12/07/2019 12:0 7 PM GLASS MELT OPERATOR 4 mg (ZOFRAN-ODT) 4 mg, sublingual, Once, On Tue12/07/19 at 1200, For 1 dose, Pre-Op, When splitting ODT at bedside, handle with gloves and a pill splitter to prevent moisture contact. oxymetazoline 0.05 % nasal spray Given 12/07/2019 1:42 PM GLASS MELT OPERATOR 1 application (AFRIN) As needed, Starting on Tue12/07/19 at 1342, Intra-Op scopolamine base 1 mg Medication Applied 12/07/2019 12:11 PM 1 patch Behind Right over 3 days 1 patch GLASS MELT OPERATOR Ear (TRANSDERM SCOP) 1 patch, transdermal, Administer [...] Recently Administered Medications Times are shown in GLASS MELT OPERATOR. Scheduled Medication Order 12/05/2019 12/06/2019 12/07/2019 acetaminophen [...] (COMPLETED) 1251 (Given - Provider: Gini Garcia, TRUCK STRIKER, AGRICULTURE WORKER) 1,250 mg (rounded from 1,146 mg = [...] 1211 (Medication Applied - Provider: Steph Gallo R.N.)1642 (Due: Medication Removed - Provider: Discharge Provider, [...]
--- OUTSIDE RECORDS SUMMARY | 2022-08-01 07:49 | XMS_ITS | Encounter Summary ---
:1965 Author Organization [facility] Address [address] [place] [address] Care Team Providers Name Role Phone Unavailable [...] you attend cheondoism or Patient refused 2021 christian services? Do [...] 12/18/2019 1:57 Results for this EXAM PM SPIRAL SPRING WINDER procedure are i n the results section. documented in this encounter Results NOSE-Otorhinolaryngology Image Exam (12/18/2019 1:57 PM SPIRAL SPRING WINDER) Specimen (Source) Anatomical Collection Method Collection Time Re ceived Time Location / / Volume Laterality 12/18/2019 1:57 PM SPIRAL SPRING WINDER Narrative IIMS - 12/18/2019 1:57 PM SPIRAL SPRING WINDER This order has been created and auto-finalized [...]
--- OUTSIDE RECORDS SUMMARY | 2022-08-01 07:49 | XMS_ITS | Encounter Summary ---
:1965 Author Organization [facility] Address [address] [place] [address] Care Team Providers Name Role Phone Unavailable Primary Care Provider Unavailable Encounter Details Date Type Department Care Team Description 12/07/2019 Hospital Encounter RST ROMB MAIN OR Darlin Olmedo, [address] [facility] [place] [address] [address] [place] [address] [place] [address] Social History Tobacco Use Types [...] you attend pentecostal or Patient refused 2021 mu-ism services? Do [...] Comments Blood Pressure 114/72 12/07/2019 3:30 PM ELECTRO WINNING OPERATOR Pulse 75 12/07/2019 4:25 PM ELECTRO WINNING OPERATOR Temperature 36.5 ??C (97.7 ??F) 12/07/2019 2:32 PM ELECTRO WINNING OPERATOR Respiratory Rate 15 12/07/2019 4:25 PM ELECTRO WINNING OPERATOR Oxygen Saturation 94% 12/07/2019 4:25 PM ELECTRO WINNING OPERATOR Inhaled Oxygen Concentration - - Weight - [...] saline sinus rinse kit (suchas NeIron or [place]). - Follow the directions on the bottle [...] clinic or with another department at [facility], an appointment willbe made for you. If you have not received specific details (date, time, location) within 2 weeks of discharge, please contact our office at [phone] to inquire. If you are to follow up somewhere other than [facility], please schedule this appointment (in the timeframe recommended by your surgeon)at your earliest convenience. CONTACT INFORMATION: If you need to reach the Department of ENT at the [facility] regarding any questions during normal business hours, please call . If you are calling after normal business hours and have a concern that needs to be addressed urgently, please call the [facility] Long Distance Billing Operator at and ask to speak to the ENT resident sephora product consultant. TRO WINNING OPERATOR AttachmentsThe following attachments cannot be sent through Care Everywhere.Your Scopolamine Patch (Costa Rican)documented in this encounter Medications at Time of [...] Extradural computer navigation was registered according to foot orthopedist's guidelines and confirmed to be accurate within [...] 5 mL Implants None Darlin Olmedo M.D. TRO WINNING OPERATOR Brief Op Note - Jey Santana [...] Loss None Implants None Jey Santana M.D. TRO WINNING OPERATOR documented in this encounter Plan of Treatment Not on filedocumented as of this encounter Procedures Procedure Name Priority Date/Time Associated Diagnosis Comme nts ADULT OXYGEN THERAPY Routine 12/07/2019 2:30 PM ELECTRO WINNING OPERATOR EXTRADURAL COMPUTER 12/07/2019 12:13 PM Rhinosin usitis Chronic NAVIGATION ELECTRO WINNING OPERATOR Mucocele Nasal Sinus Case Notes RESEARCH EXECUTIVE 10:37 SINUSOTOMY ENDOSCOPY 12/07/2019 12:13 PM ELECTRO WINNING OPERATOR Rhi nosinusitis Chronic FRONTAL Mucocele Nasal Sinus Case Notes RESEARCH EXECUTIVE 10:37 documented in this encounter Visit Diagnoses Not on filedocumented in this encounter Administered Medications Inactive Administered Medications - up to 3 most recent administrations Medication Order MAR Action Action Date Dose Rate Site acetaminophen injection 1,000 New Bag 12/07/2019 2:38 PM 1,000 mg 400 mL/hr mg (OFIRMEV) ELECTRO WINNING OPERATOR 1,000 mg, intravenous, at 400 mL/hr, [...] 1,000 mg (TYLENOL) Given 12/07/2019 12:06 PM ELECTRO WINNING OPERATOR 1,000 mg 1,000 mg, oral, Once, On Tue12/07/19 at 1200, For 1 dose, Pre-Op aprepitant capsule 40 mg (EMEND) Given 12/07/2019 12:06 PM ELECTRO WINNING OPERATOR 40 mg 40 mg, oral, Once as needed, prevent ponv, Starting on Tue12/07/19 at 1145, For 1 dose, Pre-Op caffeine tablet 200 mg Given 12/07/2019 12:06 PM ELECTRO WINNING OPERATOR 200 mg 200 mg, oral, Once as needed, pre-op to prevent caffeine withdrawal headache or to enhance emergence from anesthesia/sedation, Starting on Tue12/07/19 at 1145, For 1 dose, Pre-Op, With sips droperidol injection 0.625 mg (INAPSINE) Given 12/07/2019 2:37 PM ELECTRO WINNING OPERATOR 0.625 mg 0.625 mg, intravenous, Every [...] 25 mcg (SUBLIMAZE) Given 12/07/2019 2:32 PM ELECTRO WINNING OPERATOR 25 mcg 25 mcg, intravenous, Every 2 min PRN, For pain 4 or greater (maximum 100 mcg). If max dose of Fentanyl is reached and if pain is greater than 4, discontinue Fentanyl: give Hydromorphone, Starting on Tue12/07/19 at 1145, Pre-Op ketamine injection 10 mg (KETALAR) Given 12/07/2019 2:37 PM ELECTRO WINNING OPERATOR 10 mg 10 mg, intravenous, Once as needed, Pain sedation mismatch AND RASS score less than -1, Starting on Tue12/07/19 at 1430, For 1 dose, PACU (only) lactated ringers New Bag 12/07/2019 3:48 PM ELECTRO WINNING OPERATOR 20 mL/hr 20 mL/hr 20 mL/hr, intravenous, Continuous, Starting on Tue12/07/19 at 1400, PACU & Post-Op Continued from OR 12/07/2019 2:25 PM ELECTRO WINNING OPERATOR 20 mL/hr 20 mL/hr metoprolol tablet 12.5 [...] 2 mg (VERSED) Given 12/07/2019 12:28 PM ELECTRO WINNING OPERATOR 2 mg 2 mg, intravenous, Once as needed, anxiety, sedation, Starting on Tue12/07/19 at 1145, For 1 dose, Pre-Op ondansetron ODT disintegrating tablet 4 mg Given 12/07/2019 12:0 7 PM ELECTRO WINNING OPERATOR 4 mg (ZOFRAN-ODT) 4 mg, sublingual, Once, On Tue12/07/19 at 1200, For 1 dose, Pre-Op, When splitting ODT at bedside, handle with gloves and a pill splitter to prevent moisture contact. scopolamine base 1 mg Medication Applied 12/07/2019 12:11 PM 1 patch Behind Right over 3 days 1 patch ELECTRO WINNING OPERATOR Ear (TRANSDERM SCOP) 1 patch, transdermal, [...] Recently Administered Medications Times are shown in ELECTRO WINNING OPERATOR. Scheduled Medication Order 12/05/2019 12/06/2019 12/07/2019 [...] 1251 (Given - Provider: Gini Garcia APRN, NETWORK SECURITY CONSULTANT) 1,250 mg (rounded from 1,146 mg = [...] 1211 (Medication Applied - Provider: Steph Gallo R.N.)3014 (Due: Medication Removed - Provider: Discharge Provider, [...]
--- OUTSIDE RECORDS SUMMARY | 2022-08-01 07:49 | XMS_ITS | Encounter Summary ---
:1965 Author Organization [facility] Address [address] [place] [address] Care Team Providers Name Role Phone Unavailable Primary Care Provider Unavailable Reason for Referral Outpatient (Routine) - Closed Specialty Diagnoses / Procedures Referred By Contact Refer red To Contact Otorhinolaryngology Darlin Olmedo M.D . [address] [address] Referral ID Status Reason Start Date Expiration Date Visits Requ ested Visits Authorized [id number] Closed 12/18/2019 12/17/2020 1 1 ED TAPE PRESS OPERATOR Reason for Visit Outpatient (Routine) - Closed Specialty Diagnoses / Procedures Referred By Contact Refer red To Contact Otorhinolaryngology Darlin Olmedo M.D . [address] [address] Referral ID Status Reason Start Date Expiration Date Visits Requ ested Visits Authorized [id number] Closed 11/29/2019 11/28/2020 1 1 Encounter Details Date Type Department Care Team Description 12/18/2019 Office Visit Department of Darlin Olmedo Mucocele Nasa l Sinus Otorhinolaryngology jimmy Brumfield M.D. (Primary Dx) [address] [place] [phone] Social History Tobacco Use Types Packs/Day Years [...] attend latter day or Patient refused 2021 yarsanism services? Do [...] we will refer to neurology headache clinic. ED TAPE PRESS OPERATOR documented in this encounter Plan of [...]
--- OUTSIDE RECORDS SUMMARY | 2022-08-01 07:49 | XMS_ITS | Encounter Summary ---
:1965 Author Organization [facility] Address [address] [place] [address] Care Team Providers Name Role Phone Unavailable Primary Care Provider Unavailable Reason for Visit Reason Comments shyam Encounter Details Date Type Department Care Team Description 07/29/2020 Clinical Communication Department of Robert Diehl [id number]/[id number] Neurology in [place], [place] [address] [place] [address] 200 [place] [phone] Social History Tobacco Use Types Packs/Day Years [...] you attend pentecostalism or Patient refused 2021 uatsdin services? Do [...] for magnetic resonance angiogram be sent to [place]. José Miguel advise what the exact testing recommendation would be. Is magnetic resonance angiogram specific enough? Telephone Encounter - Robert Diehl M.D. - 08/01/2020 7:22 AM CDT Okay that is fine but I can not order those they are different Health System she can send CD to review Telephone Encounter - Rboert Diehl M.D. - 07/30/2020 4:29 PM CDT [...]
--- OUTSIDE RECORDS SUMMARY | 2022-08-01 07:49 | XMS_ITS | Encounter Summary ---
:1965 Author Organization [facility] Address [address] [place] [address] Care Team Providers Name Role Phone Unavailable [...] you attend voodoo or Patient refused 2021 confucianism services? Do [...] 12/07/2019 12:15 Results for this EXAM PM RUST PROOFER procedure are i n the results section. documented in this encounter Results NOSE-Otorhinolaryngology Image Exam (12/07/2019 12:15 PM RUST PROOFER) Specimen (Source) Anatomical Collection Method Collection Time Re ceived Time Location / / Volume Laterality 12/07/2019 12:15 PM RUST PROOFER Narrative IIMS - 12/07/2019 2:07 PM RUST PROOFER This order has been created and auto-finalized [...]
--- OUTSIDE RECORDS SUMMARY | 2022-08-01 07:49 | XMS_ITS | Encounter Summary ---
:1965 Author Organization [facility] Address [address] [place] [address] Care Team Providers Name Role Phone Unavailable Primary Care Provider Unavailable Reason for Referral MRI/CAT/PET Scan (Routine) - Closed Specialty Diagnoses / Procedures Referred By Contact Refer red To Contact Radiology Diagnoses Ataxia Robert Fowler M.D. [facility] Procedures CT Head Neck Angiogram with IV Contrast [address] [place] [address] Referral ID Status Reason Start Date Expiration Date Visits Requ ested Visits Authorized [id number] Closed 12/31/2020 12/31/2021 1 1 PRESS OPERATOR Outpatient (Routine) - Closed Specialty Diagnoses / Procedures Referred By Contact Refer red To Contact Video Medicine Diagnoses Stroke Cerebrovascular Accident Personal History Robert Fowler [facility] Margot Quintana [address] [place] [address] Referral ID Status Reason Start Date Expiration Date Visits Requ ested Visits Authorized [id number] Closed 12/30/2020 12/30/2021 1 1 PRESS OPERATOR MRI/CAT/PET Scan (Routine) - Closed Specialty Diagnoses / Procedures Referred By Contact Refer red To Contact Radiology Diagnoses Ataxia Robert Fowler M.D. [facility] Procedures CT Head Neck Angiogram with IV Contrast 200 [place] [address] Referral ID Status Reason Start Date Expiration Date Visits Requ ested Visits Authorized [id number] Closed 12/30/2020 12/30/2021 1 1 PRESS OPERATOR MRI/CAT/PET Scan (Routine) - Closed Specialty Diagnoses / Procedures Referred By Contact Refer red To Contact Radiology Diagnoses Stroke Cerebrovascular Accident Personal History Robert Fowler M.D. [facility] [facility] Procedures CT Head without IV Contrast [address] [place] [address] Referral ID Status Reason Start Date Expiration Date Visits Requ ested Visits Authorized [id number] Closed 12/30/2020 12/30/2021 1 1 PRESS OPERATOR Reason for Visit Reason Comments Symptom Assessment Encounter Details Date Type Department Care Team Description 12/22/2020 Clinical Communication Department of Robert Fowler mptom Assessment Neurology jimmy Celaya M.D. [place], [address] [place], [place] [address] [facility] [address] [place], [place] [phone] (Work) [phone] Social History Tobacco Use Types Packs/Day Years [...] you attend zoroastrian or Patient refused 2021 worship services? Do [...] Robert Fowler M.D. - 12/31/2020 5:17 PM FOOT PRESS OPERATOR Addended by: ROBERT FOWLER on: 12/31/2020 05:17 PM Modules accepted: Orders PRESS OPERATOR Addendum Note - Robert Fowler M.D. - 12/30/2020 8:34 AM FOOT PRESS OPERATOR Addended by: ROBERT FOWLER on: 12/30/2020 08:34 AM Modules accepted: Orders PRESS OPERATOR Telephone Encounter - Zuly Alex R.N. - 12/29/2020 4:48 PM CST The patient telephones back today. She did present to the local ED in [place] for evaluation of her vertigo. She shares [...] needs to get in contact with her [facility] neurologist. The patient reports that at [...] 911 or have someone drive her to [facility] as well. She agrees to call 911 for recurrent episodes. RECOMMENDED LEVEL OF CARE. The patient/caller is willing and able to follow the nurse's recommendation. RESPONSE TO ADVICE GIVEN. Patient/caller able to teach back. REFERENCES UTILIZED. Nursing clinical judgment utilized. Other interventions or information: Provider advice. TYPE OF PHONE CALL. Symptom assessment. PRESS OPERATOR Telephone Encounter - Robert Fowler M.D. - [...] by: Robert Fowler M.D. 12/23/20 8:21 AM FOOT PRESS OPERATOR PRESS OPERATOR Telephone Encounter - Zuly Alex R.N. - 12/22/2020 5:25 PM CST 5:17 pm. Tried calling to assure she could reach her son to take her to the ED. No answer. PRESS OPERATOR Telephone Encounter - Zuly Alex R.N. - [...] her to the nearest emergency room or [facility]. She expressed concerns about going to the [...] the nearest ED which would be in [place]. He did not answer. I offered to [...] advice. TYPE OF PHONE CALL. Symptom assessment. PRESS OPERATOR Telephone Encounter - Robert Fowler M.D. - 12/22/2020 3:29 PM CST Please call patient in triage whether she needs to be seen in the local emergency department for concern of acute stroke? PRESS OPERATOR documented in this encounter Plan of Treatment Scheduled Referrals Name Type Priority Associated Diagnoses Order S chedule Video anyplace Outpatient Referral Routine Stroke Cerebrovascu lar Expected: visit Accident Personal 12/30/2020 , History Expires: 12/30/2023 documented as of this encounter Results CT Head Neck Angiogram with IV Contrast (01/30/2021 3:24 PM FOOT PRESS OPERATOR) Anatomical Region Laterality Modality Head and Neck, Neuroradiology RST LOS, N/A C omputed Tomography, Computed Neuroradiology ARZ LOS, Neuroradiology T omography FLA LOS Specimen (Source) Anatomical Collection Method Collection Time Re ceived Time Location / / Volume Laterality 01/30/2021 2:25 PM FOOT PRESS OPERATOR Impressions 01/30/2021 3:18 PM FOOT PRESS OPERATOR 1. 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 Slightly decreased high-grade stenosis a t the V3/4 junction with increased flow in the distal V4 segment. 2. Evolving, now chronic right cerebella r infarct. 3. 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 Narrative 01/30/2021 3:18 PM FOOT PRESS OPERATOR EXAM: CT HEAD NECK ANGIOGRAM WITH IV [...] normal caliber bilater al MCAs, ACAs and linux unix system administrator. Patent anterior and right posterior communicating arteri [...] normal caliber bilater al MCAs, ACAs and linux unix system administrator. Patent anterior and right posterior communicating arteri [...] Angiogram with IV Contrast (12/31/2020 3:34 PM FOOT PRESS OPERATOR) Anatomical Region Laterality Modality Head and Neck, Neuroradiology RST LOS, N/A C omputed Tomography, Computed Neuroradiology ARZ LOS, Neuroradiology T omography FLA [facility] Specimen (Source) Anatomical Collection Method Collection Time Re ceived Time Location / / Volume Laterality 12/31/2020 3:49 PM FOOT PRESS OPERATOR Impressions 12/31/2020 4:54 PM FOOT PRESS OPERATOR 1. Evolving right cerebellar infarct with decreased [...] oid ICA aneurysms. Narrative 12/31/2020 4:54 PM FOOT PRESS OPERATOR EXAM: CT HEAD WITHOUT IV CONTRAST, CT [...] Findings discussed with ordering Dr. Fazal ching ([phone]) at 4:54 PM on 12/31/2020. Procedure Note [...] Findings discussed with ordering physici anDr. Fowler ([phone]) at 4:54 PM on 12/31/2020. IMPRESSION: 1. [...] Head without IV Contrast (12/31/2020 3:34 PM FOOT PRESS OPERATOR) Anatomical Region Laterality Modality Head, Neuroradiology RST LOS, N/A Computed T omography, Computed Neuroradiology ARZ LOS, Neuroradiology T omography FLA LOS Specimen (Source) Anatomical Collection Method Collection Time Re ceived Time Location / / Volume Laterality 12/31/2020 3:49 PM FOOT PRESS OPERATOR Impressions 12/31/2020 4:54 PM FOOT PRESS OPERATOR 1. Evolving right cerebellar infarct with decreased [...] oid ICA aneurysms. Narrative 12/31/2020 4:54 PM FOOT PRESS OPERATOR EXAM: CT HEAD WITHOUT IV CONTRAST, CT [...] discussed with ordering physici Dr. Fazal abbasi ([phone]) at 4:54 PM on 12/31/2020. Procedure Note [...] Findings discussed with ordering Dr. Fazal ching ([phone]) at 4:54 PM on 12/31/2020. IMPRESSION: 1. [...]
--- OUTSIDE RECORDS SUMMARY | 2022-08-01 07:49 | XMS_ITS | Encounter Summary ---
:1965 Author Organization [facility] Address [address] [place] [address] Care Team Providers Name Role Phone Unavailable Primary Care Provider Unavailable Encounter Details Date Type Department Care Team Description 12/07/2019 Anesthesia Event RST ROMB [place] OR Leonides Walker, [address] [facility] [place] [address] [address] [place] [address] [place] [address] (Wo rk) Anesthesia Record Procedure [...] h andoff to the receiving staff during [facility] we 1. Identified the patient 2. Ident [...] Simin valentine, Jey García, (created via procedure RADIATOR REPAIRER, LANGUAGE INTERPRETER RADIATOR REPAIRER, TY A documentation); Mask Ventilation: Easy mask; [...] many times do you More than three arbahan es a week 05/17/2022 talk on the phone with family, friends, or neighbors? How often do you get together with friends More than three t imes a week 05/17/2022 or relatives? How often do you attend bahai or Patient refused 2021 christianity services? Do you belong to any clubs or No 05/17/2022 organizations such as bahai groups, unions, [employer]ure Outcomes or athletic groups, or school groups? How [...] Procedure Summary Date: 12/07/19 Room / Location: [place] [address] ROMB 01 580 / [facility] in [place], [place] Anesthesia Start: 1234 Anesthesia Stop: 1434 Procedures: SINUSOTOMY ENDOSCOPY FRONTAL. (Bilateral Nose) EXTRADURAL COMPUTER NAVIGATION. 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 Responsible Provider: Leonides Walker [...] Promethazine; otherwise, uneventful recovery with outpt dispo. ING CONSULTANT Anesthesia Procedure Notes - Gini Garcia APRN, [...] Procedure outcome: successful Airway event: no complications ING CONSULTANT Anesthesia Preprocedure Evaluation - Leonides Walker M.D. - 12/07/2019 11:59 AM CST Preprocedure Anesthesia & H&P Assessment Procedure Summary Date/Time: 12/07/19 1119 Procedures: SINUSOTOMY ENDOSCOPY FRONTAL. (Bilateral Nose) EXTRADURAL COMPUTER NAVIGATION. 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 Location: [place] [address] / [facility] in [place], [place] Provider: Darlin Olmedo M.D. Pertinent components [...] #11 Patent Foramen Ovale (HCC) Noted on [id number]/ ECHO otherwise normal. I will not pursue [...] with patient /legal guardian or through an life insurance sales. The use of blood products not discussed Approval to Proceed: approved for anesthesia ING CONSULTANT documented in this encounter Plan of Treatment Not on filedocumented as of this encounter Procedures Procedure Name Priority Date/Time Associated Comments Diagnosis LDA ANE ENDOTRACHEAL Routine 12/07/2019 12:47 Res ults for this AIRWAY PM BANKING CONSULTANT procedure are i n the results section. documented in this encounter Results LDA ANE ENDOTRACHEAL AIRWAY (12/07/2019 12:47 PM BANKING CONSULTANT) Narrative Gini Garcia APRN, CRNA - 2019 12:47 PM BANKING CONSULTANT Gini Garcia APRN, CRNA ? 12/07/2019 12:49 [...] dexamethasone injection (DECADRON) Given 12/07/2019 12:43 PM BANKING CONSULTANT 4 mg As needed, Starting on Tue12/07/19 at 1243, Anesthesia Intra-op ePHEDrine (PF) injection Given 12/07/2019 12:48 PM BANKING CONSULTANT 5 mg intravenous, As needed, Starting on Tue12/07/19 at 1242, Anesthesia Intra-op Given 12/07/2019 12:42 PM BANKING CONSULTANT 25 mg fentaNYL injection 25 mcg (SUBLIMAZE) Given 12/07/2019 2:32 PM BANKING CONSULTANT 25 mcg 25 mcg, intravenous, Every 2 min PRN, For pain 4 or greater (maximum 100 mcg). If max dose of Fentanyl is reached and if pain is greater than 4, discontinue Fentanyl: give Hydromorphone, Starting on Tue12/07/19 at 1145, Pre-Op lactated ringers New Bag 12/07/2019 12:39 PM BANKING CONSULTANT intravenous, Continuous Infusion: Per Instructions PRN, Starting on Tue12/07/19 at 1239, Anesthesia Intra-op lidocaine (PF) (cardiac) injection Given 12/07/2019 12:40 PM BANKING CONSULTANT 100 mg intravenous, As needed, Starting on Tue12/07/19 at 1240, Anesthesia Intra-op ondansetron (PF) injection (ZOFRAN) Given 12/07/2019 1:57 PM BANKING CONSULTANT 4 mg intravenous, As needed, Starting on Tue12/07/19 at 1357, Anesthesia Intra-op phenylephrine injection Given 12/07/2019 12:50 PM BANKING CONSULTANT 100 mcg intravenous, As needed, Starting on Tue12/07/19 at 1246, Anesthesia Intra-op Given 12/07/2019 12:48 PM BANKING CONSULTANT 100 mcg Given 12/07/2019 12:46 PM BANKING CONSULTANT 100 mcg propofol 10 mg/mL infusion Rate/Dose 12/07/2019 75 mcg/kg/min 34.4 m L/hr (DIPRIVAN) Change 12:46 PM BANKING CONSULTANT intravenous, Continuous Infusion: Per Instructions PRN, Starting on Tue12/07/19 at 1241, Anesthesia Intra-op New Bag 12/07/2019 12:41 PM BANKING CONSULTANT 250 mcg/kg/min 115 mL/hr propofol injection (DIPRIVAN) Given 12/07/2019 12:42 PM BANKING CONSULTANT 100 mg intravenous, As needed, Starting on Tue12/07/19 at 1242, Anesthesia Intra-op remifentanil 20 mcg/mL in Rate/Dose 12/07/2019 1:43 0.1 mcg/kg/min 2 2.9 mL/hr NaCl 0.9% 100 mL infusion Change PM BANKING CONSULTANT (ULTIVA) Continuous Infusion: Per Instructions PRN, Starting on Tue12/07/19 at 1246, Anesthesia Intra-op Rate/Dose Change 12/07/2019 12:53 PM BANKING CONSULTANT 0.2 mcg/kg/min 45.8 mL/hr New Bag 12/07/2019 12:46 PM BANKING CONSULTANT 0.25 mcg/kg/min 57.3 mL/hr succinylcholine (PF) injection (ANECTINE ) Given 12/07/2019 12:42 PM BANKING CONSULTANT 10 mg intravenous, As needed, Starting on Tue12/07/19 at 1242, Anesthesia Intra-op vancomycin in NaCl 0.9% IVPB 1,250 mg Given 12/07/2019 12:51 PM BANKING CONSULTANT 1.25 g 1,250 mg (rounded from 1,146 [...]
--- OUTSIDE RECORDS SUMMARY | 2022-08-01 07:50 | XMS_ITS | Encounter Summary ---
:1965 Author Organization [facility] Address [address] [place] [address] Care Team Providers Name Role Phone Unavailable Primary Care Provider Unavailable Reason for Referral Outpatient (Routine) - Closed Specialty Diagnoses / Procedures Referred By Contact Refer herson To Contact General Surgery Diagnoses Rhinosinusitis Chronic John Gomez M.D. [address] [phone] Referral ID Status Reason Start Date Expiration Date Visits Requ ested Visits Authorized [id number] Closed 11/08/2019 11/07/2020 1 1 utpatient (Routine) - Closed Specialty Diagnoses / Procedures Referred By Contact Clyde bains To Contact Otorhinolaryngology John Gomez M.D. [address] [address] Referral ID Status Reason Start Date Expiration Date Visits Requ ested Visits Authorized [id number] Closed 11/08/2019 11/07/2020 1 1 Scheduling Instructions EKO listing visit and NESHA 11/29/2019 ER BAILER OPERATOR Reason for Visit Reason Onset Date Comments reschedule surgery 11/07/2019 Patient was a no sydni w for surgery with Dr. Olmedo on 11/05/19. Encounter Details Date Type Department Care Team Description 11/07/2019 Clinical Department of shawna Olmedo Communication Otorhinolaryngology in Darlin Brumfield, surg silva (Patient [place], [place] M.D. was a no show for [address] [place]. [place], [place] [id number] SHAHANA Toole on [phone] [place], 11/05/19.) [place] [id number] Social History Tobacco Use Types Packs/Day Years [...] you attend buddhist or Patient refused 2021 taoist services? Do [...] Tanvi White R.N. - 11/09/2019 10:02 AM DUMPER BAILER OPERATOR Patient called to let her know of the preoperative appointments and listing appointment with Dr. Darlin Olmedo. She was also informed that she does not have to stop the aspirin 81 mg for surgery. She verbalized understanding regarding the use of aspirin and was appreciative of the call. ER BAILER OPERATOR Telephone Encounter - John Gomez M.D. - 11/08/2019 5:00 PM CST Kosta Wu I placed the NESHA, listing visit, and created the listing. She can stay on her 81 ASA. Thank you. ER BAILER OPERATOR Addendum Note - John Gomez M.D. - 11/08/2019 4:59 PM DUMPER BAILER OPERATOR Addended by: JOHN GOMEZ on: 11/08/2019 04:59 PM Modules accepted: Orders ER BAILER OPERATOR Telephone Encounter - Tanvi White R.N. - 11/08/2019 10:59 AM DUMPER BAILER OPERATOR SUBJECTIVE CHIEF COMPLAINT / REASON FOR CALL [...] the surgical date. She will require a team cdl driver and that plan will work better for her. Disposition/Recommendation: Patient is aware that she will need to call in the night before surgeryfor a report [facility]. Information/Education: patient/caller able to teach back Caller agreeable to plan of care: yes The following references were used: nursing clinical judgement ER BAILER OPERATOR Telephone Encounter - Darlin Olmedo M.D. - 11/08/2019 10:16 AM CST Any of those days are fine. I should see her for a listing visit and NESHA. thanks ER BAILER OPERATOR Telephone Encounter - Tanvi White R.N. - 11/07/2019 1:34 PM DUMPER BAILER OPERATOR SUBJECTIVE CHIEF COMPLAINT / REASON FOR CALL [...] following references were used: nursing clinical judgement ER BAILER OPERATOR documented in this encounter Plan of Treatment Scheduled Referrals Name Type Priority Associated Diagnoses Order S chedule Otorhinolaryngology office Outpatient Routine E xpected: visit (clinic) Referral 11/29/2019, Expires: 11/08/2022 Preoperative Evaluation Outpatient Routine Rhinosinusitis Ex pected: NESHA consult (clinic) Referral Chronic 020 (Approximate), Expires: 11/08/2022 documented as of this encounter Results (ABNORMAL) CBC without Differential (11/29/2019 11:30 AM DUMPER BAILER OPERATOR) [facility] gist Method Time Signature Hemoglobin 13.3 11.6 - 11/29/2019 DTL 15.0 g/dL 12:09 PM DUMPER BAILER OPERATOR Hematocrit 40.6 35.5 - 11/29/2019 DTL 44.9 % 12:09 PM DUMPER BAILER OPERATOR Erythrocytes 4.08 3.92 - 11/29/2019 DTL 5.13 12:09 PM DUMPER BAILER OPERATOR x10(12)/L MCV 99.5 (H) 78.2 - 11/29/2019 DTL 97.9 fL 12:09 PM DUMPER BAILER OPERATOR RBC Distrib Width 13.3 12.2 - 11/29/2019 DTL 16.1 % 12:09 PM DUMPER BAILER OPERATOR Platelet Count 234 157 - 371 11/29/2019 DTL x10(9)/L 12:09 PM DUMPER BAILER OPERATOR Leukocytes 5.8 3.4 - 9.6 11/29/2019 DTL x10(9)/L 12:09 PM DUMPER BAILER OPERATOR Specimen Anatomical Collection Method Collection Time Receive d Time (Source) Location / / Volume Laterality Blood (Blood, 11/29/2019 11:30 11/29/2019 Venous) AM DUMPER BAILER OPERATOR 11:50 AM DUMPER BAILER OPERATOR John Gomez M.D. LAB BLOOD ADD-ON Performing Organization Address City/State/ZIP Code Phon e Number [facility] - [address] [place], [place] [address] [facility] [place] [address] Laboratories-[facility] [address] documented in this encounter Visit Diagnoses Diagnosis Rhinosinusitis Chronic - Primary documented in this encounter Additional Health Concerns Assessment Noted Time PHQ-9 Depression Total Score: 5 04/05/2019 8:00 AM CDT documented as of this encounter
--- OUTSIDE RECORDS SUMMARY | 2022-08-01 07:50 | XMS_ITS | Encounter Summary ---
:1965 Author Organization [facility] Address [address] [place] [address] Care Team Providers Name Role Phone Unavailable Primary Care Provider Unavailable Encounter Details Date Type Department Care Team Description 09/03/2019 Documentation Department of Neurology in Robert Fontanez M.D. [place], [place] 200 [facility] 200 [place] [phone] [phone] (Wo rk) Social History Tobacco Use Types [...] you attend methodist or Patient refused 2021 worship services? Do [...]
--- OUTSIDE RECORDS SUMMARY | 2022-08-01 07:50 | XMS_ITS | Encounter Summary ---
:1965 Author Organization [facility] Address [address] [place] [address] Care Team Providers Name Role Phone Unavailable Primary Care Provider Unavailable Reason for Visit Reason Onset Date Comments wants to have MRI done closer to home before appt 09/03/2019 [facility] Encounter Details Date Type Department Care Team Description 09/03/2019 Clinical Communication Department of [facility] Robert cabrera nts to have MRI Neurology in [place], [place] done closer to home [place], [facility] before appt [place], [place] ([facility]) [address] [facility] [address] [place], [place] [phone] (Work) [phone] Social History Tobacco Use Types Packs/Day Years [...] you attend synagogue or Patient refused 2021 shinto services? Do [...] for MRA faxed to Dr. Blackwell at [facility] at fax [phone]. Called the patient and left a message [...] like to have her MRI done at [facility] Clinic's before her appointment with Dr. Diehl on 09/19. Or if she could get her MRI scheduled for the same day as she is here for her appointment. She doesn't want to drive 2 days in a row. She wanted the order sent to Dr. Blackwell so I guess just send notes to Dr. Clemente Blackwell at [facility] Phone- [phone] documented in this encounter Plan of Treatment Not on filedocumented as of this encounter Visit Diagnoses Not on filedocumented in this encounter Additional Health Concerns Assessment Noted Time PHQ-9 Depression Total Score: 5 04/05/2019 8:00 AM CDT documented as of this encounter
--- OUTSIDE RECORDS SUMMARY | 2022-08-01 07:50 | XMS_ITS | Encounter Summary ---
:1965 Author Organization [facility] Address [address] [place] [address] Care Team Providers Name Role Phone Unavailable Primary Care Provider Unavailable Encounter Details Date Type Department Care Team Description 10/02/2019 Orders Only Department of Robert Diehl Thrombosi s Arterial Neurology in [place].D[place]itton ([facility]) (Primary Dx) [place], [place] [address] [place] [address] 200 [place] [phone] Social History Tobacco Use Types Packs/Day Years [...] you attend episcopalian or Patient refused 2021 alevism services? Do [...] of Outside MR Neck (10/02/2019 1:01 PM RIVER BOAT CAPTAIN) Anatomical Region Laterality Modality Neuroradiology RST LOS, Neuroradiology ARZ LOS, N/A Magnetic Resonance Neuroradiology FLA LOS, Neck Specimen (Source) Anatomical Collection Method Collection Time Re ceived Time Location / / Volume Laterality 10/02/2019 1:03 PM RIVER BOAT CAPTAIN Impressions 10/02/2019 1:18 PM RIVER BOAT CAPTAIN Similar appearance of the distal right vertebral artery irregularity and mild narrowing at C1, r elated to the nonocclusive luminal thrombus, as seen on the prior CTA exams . MRA neck otherwise negative and unchanged. Narrative 10/02/2019 1:18 PM RIVER BOAT CAPTAIN EXAM: ??INTERPRETATION OF OUTSIDE MR NECK COMPARISON: [...]
--- OUTSIDE RECORDS SUMMARY | 2022-08-01 07:50 | XMS_ITS | Encounter Summary ---
:1965 Author Organization [facility] Address [address] [place] [address] Care Team Providers Name Role Phone Unavailable Primary Care Provider Unavailable Encounter Details Date Type Department Care Team Description 11/29/2019 Hospital Encounter Department of Jey Santana, Rhinosi nusitis Chronic; Laboratory Medicine M.D. Preanesthetic Medical Exam and Pathology, [address] [place] [address] [facility] [address] [place] [phone] [place] [address] (Work) [place], [place] [phone] (Fax) [phone] Social History Tobacco Use Types Packs/Day Years [...] R esults for this DIFFERENTIAL, B AM DIRECTOR OF MARKET ANALYSIS procedure ar e in the results section. CREATININE WITH Routine 11/29/2019 11:30 Preanesthetic Medical Results for this EGFR, S/P AM DIRECTOR OF MARKET ANALYSIS Exam procedure are i n the results section. documented in this encounter Results Creatinine with Estimated GFR - for Lab Draw (11/29/2019 11:30 AM DIRECTOR OF MARKET ANALYSIS) P athologist Signature Creatinine 0.98 0.59 - 11/29/2019 DTL 1.04 mg/dL 1:05 PM DIRECTOR OF MARKET ANALYSIS eGFR-Non 65 >=60 11/29/2019 DTL Black/ mL/min/BSA 1:05 PM DIRECTOR OF MARKET ANALYSIS [place] Comment: ----ADDITIONAL INFORMATION---- Estimated GFR calculated using the 2009 CKD_EPI creatinine equation. eGFR-Black/ 75 >=60 mL/min/BSA 2019 1:05 PM DIRECTOR OF MARKET ANALYSIS DTL Comment: ----ADDITIONAL INFORMATION---- Estimated GFR calculated using the 2009 CKD_EPI creatinine equation. Specimen Anatomical Collection Method Collection Time Receive d Time (Source) Location / / Volume Laterality Blood (Blood, 11/29/2019 11:30 11/29/2019 Venous) AM DIRECTOR OF MARKET ANALYSIS 11:50 AM DIRECTOR OF MARKET ANALYSIS Miranda Collado APRN C.N.P., M.S.N. LAB BLOOD ADD-ON Performing Organization Address City/State/[facility] Code Phon e Number [facility] - [address] [place] [address] [facility] [place] [address] Laboratories[facility] [address] [facility] (ABNORMAL) CBC without Differential (11/29/2019 11:30 AM DIRECTOR OF MARKET ANALYSIS) Patholo gist Method Time Signature Hemoglobin 13.3 11.6 - 11/29/2019 DTL 15.0 g/dL 12:09 PM DIRECTOR OF MARKET ANALYSIS Hematocrit 40.6 35.5 - 11/29/2019 DTL 44.9 % 12:09 PM DIRECTOR OF MARKET ANALYSIS Erythrocytes 4.08 3.92 - 11/29/2019 DTL 5.13 12:09 PM DIRECTOR OF MARKET ANALYSIS x10(12)/L MCV 99.5 (H) 78.2 - 11/29/2019 DTL 97.9 fL 12:09 PM DIRECTOR OF MARKET ANALYSIS RBC Distrib Width 13.3 12.2 - 11/29/2019 DTL 16.1 % 12:09 PM DIRECTOR OF MARKET ANALYSIS Platelet Count 234 157 - 371 11/29/2019 DTL x10(9)/L 12:09 PM DIRECTOR OF MARKET ANALYSIS Leukocytes 5.8 3.4 - 9.6 11/29/2019 DTL x10(9)/L 12:09 PM DIRECTOR OF MARKET ANALYSIS Specimen Anatomical Collection Method Collection Time Receive d Time (Source) Location / / Volume Laterality Blood (Blood, 11/29/2019 11:30 11/29/2019 Venous) AM DIRECTOR OF MARKET ANALYSIS 11:50 AM DIRECTOR OF MARKET ANALYSIS Jey Santana M.D. LAB BLOOD ADD-ON Performing Organization Address City/State/ZIP Code Phon e Number [facility] - [address] [place], [place] [address] [facility] [place] [address] Laboratories-[facility] [address] [facility] documented in this encounter Visit Diagnoses Diagnosis Rhinosinusitis Chronic Preanesthetic Medical Exam documented in this encounter Additional Health Concerns Assessment Noted Time PHQ-9 Depression Total Score: 5 04/05/2019 8:00 AM CDT documented as of this encounter
--- OUTSIDE RECORDS SUMMARY | 2022-08-01 07:50 | XMS_ITS | Encounter Summary ---
:1965 Author Organization [facility] Address [address] [place] [address] Care Team Providers Name Role Phone Unavailable Primary Care Provider Unavailable Reason for Visit Outpatient (Routine) - Closed Specialty Diagnoses / Procedures Referred By Contact Refer red To Contact Neurology Robert Diehl M. D. [facility] [address] [place] [phone] Referral ID Status Reason Start Date Expiration Date Visits Requ ested Visits Authorized [id number] Closed 06/28/2019 06/27/2020 1 1 Encounter Details Date Type Department Care Team Description 10/02/2019 Office Visit Department of Robert Diehl, Stroke (H CC) (Primary Dx); Neurology in M.D. Thrombosis Arterial (HCC) [place], [place] [address] [place] [address] [place] [phone] Social History Tobacco Use Types Packs/Day Years [...] many times do you More than three barahan es a week 05/17/2022 talk on the phone with family, friends, or neighbors? How often do you get together with friends More than three t imes a week 05/17/2022 or relatives? How often do you attend jainism or Patient refused 2021 synagogue services? Do you belong to any clubs or No 05/17/2022 organizations such as jainism groups, unions, fraJH Network or athletic groups, or school groups? How [...] of a magnetic resonance angiogram completed at [facility]. Unfortunately we do not have the [...] 1. Stroke (HCC) 2. Thrombosis Arterial (HCC) CE DISTRICT SWITCHBOARD OPERATOR documented in this encounter Plan of Treatment Not on filedocumented as of this encounter Visit Diagnoses Diagnosis Stroke (HCC) - Primary Thrombosis Arterial (HCC) documented in this encounter Additional Health Concerns Assessment Noted Time PHQ-9 Depression Total Score: 5 04/05/2019 8:00 AM CDT documented as of this encounter
--- OUTSIDE RECORDS SUMMARY | 2022-08-01 07:50 | XMS_ITS | Encounter Summary ---
:1965 Author Organization [facility] Address [address] [place] [address] Care Team Providers Name Role Phone Unavailable Primary Care Provider Unavailable Reason for Visit Reason Onset Date Comments Nicotine Dependence 04/26/2019 Encounter Details Date Type Department Care Team Description 04/26/2019 Clinical Department of Tesfaye Ortega, Nicotine Janet grady Communication Nicotine Kenna D, Dependence, Jordy Alex, [facility], in [place], [place] [address] [place] [address] Social History Tobacco Use Types Packs/Day Years [...]
--- OUTSIDE RECORDS SUMMARY | 2022-08-01 07:50 | XMS_ITS | Encounter Summary ---
:1965 Author Organization [facility] Address [address] [place] [address] Care Team Providers Name Role Phone Unavailable Primary Care Provider Unavailable Reason for Visit Reason Onset Date Comments Telephone call 04/24/2019 [place]anca Encounter Details Date Type Department Care Team Description 04/24/2019 Clinical Communication Department of Blanca, Tele phone call Neurology in Nan Bose M.D. (Blanca) [place], [facility] [place], [place] [address] [place] [phone] [place], [place] [phone] (Work) [phone] Social History Tobacco Use Types Packs/Day Years [...] you attend restorationism or Patient refused 2021 restorationism services? Do [...] The patient contacted Dr. Henry's office at [facility] for a PFO closure. Depending on your answer would decide if the patient was a candidate for PFO closure. They read your 04/04/18 hospital summary in [facility], but the answer is unclear. Their fax is [phone]. thanks documented in this encounter Plan of Treatment Not on filedocumented as of this encounter Visit Diagnoses Not on filedocumented in this encounter Additional Health Concerns Assessment Noted Time PHQ-9 Depression Total Score: 5 04/05/2019 8:00 AM CDT documented as of this encounter
--- OUTSIDE RECORDS SUMMARY | 2022-08-01 07:50 | XMS_ITS | Encounter Summary ---
:[address] [facility] Address [address] [place] [address] Care Team Providers Name Role Phone Unavailable Primary Care Provider Unavailable Reason for Visit Reason Onset Date Comments Nicotine Dependence 08/30/2019 Encounter Details Date Type Department Care Team Description 08/30/2019 Clinical Department of Tesfaye Ortega, Nicotine Janet grady Communication Nicotine Kenna D, Dependence, Jordy Alex, [facility], in [place], [place] [address] [place] [address] Social History Tobacco Use Types Packs/Day Years [...] you attend synagogue or Patient refused 2021 episcopal services? Do [...]
--- OUTSIDE RECORDS SUMMARY | 2022-08-01 07:50 | XMS_ITS | Encounter Summary ---
:1965 Author Organization [facility] Address [address] [place] [address] Care Team Providers Name Role Phone Unavailable Primary Care Provider Unavailable Encounter Details Date Type Department Care Team Description 10/02/2019 Ancillary Procedure Department of Robert Diehl Arterial Radiology jimmy Celaya M.D. ([facility]) [place], [place] [address] [place] [address] [address] [place] [phone] Social History Tobacco Use Types Packs/Day Years [...] attend roman catholic or Patient refused 2021 mosque services? [...] Robert Diehl M.D. - 10/02/2019 3:20 PM HEEL SLICKER INSURANCE POLICY CLERK: Would you please give the patient [...] artery finding and the left paraclinoid aneurysm. SLICKER documented in this encounter Plan of Treatment Not on filedocumented as of this encounter Procedures Procedure Name Priority Date/Time Associated Comments Diagnosis INTERPRETATION OF RAD - Routine 10/02/2019 1:01 Thrombosis Result s for OUTSIDE MR NECK (most inpatients PM HEEL SLICKER Arterial (HCC) this p rocedure and all are in the outpatients) results section. documented in this encounter Results Interpretation of Outside MR Neck (10/02/2019 1:01 PM HEEL SLICKER) Anatomical Region Laterality Modality Neuroradiology RST LOS, Neuroradiology ARZ LOS, N/A Magnetic Resonance Neuroradiology FLA LOS, Neck Specimen (Source) Anatomical Collection Method Collection Time Re ceived Time Location / / Volume Laterality 10/02/2019 1:03 PM HEEL SLICKER Impressions 10/02/2019 1:18 PM HEEL SLICKER Similar appearance of the distal right vertebral artery irregularity and mild narrowing at C1, r elated to the nonocclusive luminal thrombus, as seen on the prior CTA exams . MRA neck otherwise negative and unchanged. Narrative 10/02/2019 1:18 PM HEEL SLICKER EXAM: ??INTERPRETATION OF OUTSIDE MR NECK COMPARISON: [...]
--- OUTSIDE RECORDS SUMMARY | 2022-08-01 07:50 | XMS_ITS | Encounter Summary ---
:1965 Author Organization [facility] Address [address] [place] [address] Care Team Providers Name Role Phone Unavailable Primary Care Provider Unavailable Encounter Details Date Type Department Care Team Description 10/03/2019 Clinical Communication Department of Robert Diehl, Neurology in .. [place], [place] 200 [facility] 200 [place] [phone] Social History Tobacco Use Types Packs/Day Years [...] you attend adventism or Patient refused 2021 temple services? Do [...] Coby this is for you, records request FOOD CREW LEAD Telephone Encounter - Janis Preston R.N. - 10/03/2019 3:11 PM CST Called patient back with update about aspirin per Dr. Diehl. Patient voiced understanding that she will stop the warfarin and continue baby aspirin. She wants notes about her visit sent to her DrBrittonin [place]. Janis Preston R.N. FOOD CREW LEAD Telephone Encounter - Janis Preston R.N. - [...] dose and warfarin discontinuation. Janis Preston R.N. FOOD CREW LEAD documented in this encounter Plan of Treatment Not on filedocumented as of this encounter Visit Diagnoses Not on filedocumented in this encounter Additional Health Concerns Assessment Noted Time PHQ-9 Depression Total Score: 5 04/05/2019 8:00 AM CDT documented as of this encounter
--- OUTSIDE RECORDS SUMMARY | 2022-08-01 07:50 | XMS_ITS | Encounter Summary ---
:1965 Author Organization [facility] Address [address] [place] [address] Care Team Providers Name Role Phone Unavailable Primary Care Provider Unavailable Reason for Visit Outpatient (Routine) - Closed Specialty Diagnoses / Procedures Referred By Contact Refer red To Contact Otorhinolaryngology Jey Santana M.D. [facility] [address] [place] [phone] Referral ID Status Reason Start Date Expiration Date Visits Requ ested Visits Authorized [id number] Closed 11/08/2019 11/07/2020 1 1 Encounter Details Date Type Department Care Team Description 11/29/2019 Office Visit Department of Darlin Olmedo Mucocele Nasa l Sinus Otorhinolaryngology jimmy Brumfield M.D. (Primary Dx) [address] [place] [phone] Social History Tobacco Use Types Packs/Day Years [...] you attend caodaism or Patient refused 2021 bahai services? Do you belong to any clubs or No 05/17/2022 organizations such as caodaism groups, unions, fraKahub or athletic groups, or school groups? How [...] Previous sinus surgery: sinus surgery X2 in [place] and X2 at [place] per patient; mucocele notedby left eye on [...] Crusting Mild = 1 Mild = 1 [facility] Score = 2 ASSESSMENT / PLAN [...] if this occurs we will identify another retirement consultant surgeon to supervise other team members to safely and seamlessly complete the procedure. Signed consent was obtained today. Patient was seen and examined today in conjunction with Dr. Darlin Olmedo ([phone]). AND LINK ASSEMBLY SUPERVISOR Associated attestation - Darlin Olmedo M.D. - 11/30/2019 10:43 AM BELT AND LINK ASSEMBLY SUPERVISOR I was the supervising physician in the delivery of the service. I saw the patient with Krista Casey APRN, NURSING PROGRAM DIRECTOR, MSN and agree with her history, Assessment [...]
--- OUTSIDE RECORDS SUMMARY | 2022-08-01 07:50 | XMS_ITS | Encounter Summary ---
:1965 Author Organization [facility] Address [address] [place] [address] Care Team Providers Name Role Phone Unavailable Primary Care Provider Unavailable Encounter Details Date Type Department Care Team Description 06/28/2019 Hospital Encounter Department of Fernie Soriano Stroke ([facility]); Radiology, Jordy Alvarado M.D. Thrombosis Arterial ([facility]); Building, in [address] [place] [address] Aneurysm Cerebral Unruptured ([facility]) [place], [place] [address] [place] [phone] [place], [place] [phone] (Work) [phone] Social History Tobacco Use Types Packs/Day Years [...] you attend quaker or Patient refused 2021 quaker services? Do [...] the ventral aspect (series 6 image s [id number]). The lumen remains significantly irregular and there [...] well seen. The RADHA, MCA, a nd TRAFFIC SAFETY ADMINISTRATOR branches are unremarkable in appearance. Stable postoperative [...] the ventral aspect (series 6 image s [id number]). The lumen remains significantly irregular and there [...] well seen. The RADHA, MCA, a nd TRAFFIC SAFETY ADMINISTRATOR branches are unremarkable in appearance. Stable postoperative [...]
--- OUTSIDE RECORDS SUMMARY | 2022-08-01 07:50 | XMS_ITS | Encounter Summary ---
:1965 Author Organization [facility] Address [address] [place] [address] Care Team Providers Name Role Phone Unavailable Primary Care Provider Unavailable Reason for Visit Reason Onset Date Comments Schedule Surgery 10/05/2019 Encounter Details Date Type Department Care Team Description 10/05/2019 Clinical Department of [place], Schedule Surge ry Communication Otorhinolaryngology in [place], [place] [address] [facility] [address] [place] [phone] [place] [address] Social History Tobacco Use Types Packs/Day Years [...] you attend sikh or Patient refused 2021 mosque services? Do [...] Kaykay Murphy R.N. - 10/17/2019 8:10 AM RISK AND COMPLIANCE ANALYTICS DIRECTOR Pt has return appt with [facility] on 10/23 AND COMPLIANCE ANALYTICS DIRECTOR Telephone Encounter - Alana Engel L.P.NBritton - 10/09/2019 2:49 PM CST Note sent to DR. Olmedo and patient's Neurology team to discuss clearance for surgery. Desk is scheduling a return for the patient ot discuss surgery. AND COMPLIANCE ANALYTICS DIRECTOR Telephone Encounter - Alana Engel L.P.N. - [...] following references were used: provider Dr. Olmedo AND COMPLIANCE ANALYTICS DIRECTOR Telephone Encounter - Zoey Lipscomb - 10/05/2019 [...] surgical date. She can be reached at [phone]. AND COMPLIANCE ANALYTICS DIRECTOR documented in this encounter Plan of Treatment Not on filedocumented as of this encounter Visit Diagnoses Not on filedocumented in this encounter Additional Health Concerns Assessment Noted Time PHQ-9 Depression Total Score: 5 04/05/2019 8:00 AM CDT documented as of this encounter
--- OUTSIDE RECORDS SUMMARY | 2022-08-01 07:50 | XMS_ITS | Encounter Summary ---
:1965 Author Organization [facility] Address [address] [place] [address] Care Team Providers Name Role Phone Unavailable Primary Care Provider Unavailable Encounter Details Date Type Department Care Team Description 10/09/2019 Orders Only Department of Otorhinolaryngology Alana Engel, in [facility] L.P.N. [address] [place] [address] 200 [place] [phone] [place], [place] [phone] Social History Tobacco Use Types Packs/Day Years [...] you attend sikh or Patient refused 2021 spiritism services? Do [...]
--- OUTSIDE RECORDS SUMMARY | 2022-08-01 07:50 | XMS_ITS | Encounter Summary ---
:1965 Author Organization [facility] Address [address] [place] [address] Care Team Providers Name Role Phone Unavailable Primary Care Provider Unavailable Reason for Visit Reason Onset Date Comments Patient wants letter and notes sent to physician in 10/03/[address] Robert Diehl [facility] Encounter Details Date Type Department Care Team Description 10/03/2019 Clinical Communication Department of Robert Diehl Neurology in [place] letter and notes [address] sent to physician [place], [place] in [facility] ( [address] [place] [phone] Robert Diehl) [place], [place] [phone] (Work) [phone] Social History Tobacco Use Types Packs/Day Years [...] you attend scientology or Patient refused 2021 latter-day services? Do [...] 3:55 PM CST As per documentation in [facility] on 09/04, a letter has been sent to Dr. Blackwell with the patient's notes from her most recent visit. ECTOR SEMICONDUCTOR WAFER documented in this encounter Plan of Treatment Not on filedocumented as of this encounter Visit Diagnoses Not on filedocumented in this encounter Additional Health Concerns Assessment Noted Time PHQ-9 Depression Total Score: 5 04/05/2019 8:00 AM CDT documented as of this encounter
--- OUTSIDE RECORDS SUMMARY | 2022-08-01 07:50 | XMS_ITS | Encounter Summary ---
:1965 Author Organization [facility] Address [address] [place] [address] Care Team Providers Name Role Phone Unavailable Primary Care Provider Unavailable Reason for Visit Reason Onset Date Comments MRI from [facility] 10/02/2019 Dr. Diehl Encounter Details Date Type Department Care Team Description 10/02/2019 Clinical Communication Department of Robert Diehl MR [facility], 200 [facility] F[facility]) [place], [place] [address] [place] [phone] [place], [place] [phone] (Work) [phone] Social History Tobacco Use Types Packs/Day Years [...] you attend methodist or Patient refused 2021 protestant services? Do [...] with the radiology film room ([facility]) at [facility]. They have pushed the MRI and it should be here soon. 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
--- OUTSIDE RECORDS SUMMARY | 2022-08-01 07:50 | XMS_ITS | Encounter Summary ---
:1965 Author Organization [facility] Address [address] [place] [address] Care Team Providers Name Role Phone Unavailable Primary Care Provider Unavailable Encounter Details Date Type Department Care Team Description 04/04/2019 - Hospital Encounter [facility], Stroke (H [facility]) (Primary Dx); 04/05/2019 [facility] M.D. Decline Functional Status; [facility], [address] [place] [address] Second floor [phone] [place] [address] [place], [place] (Work) [phone] Social History Tobacco Use [...] you attend islam or Patient refused 2021 zoroastrianism services? Do [...] up with your primary care provider in [place], [place] for ongoing monitoring of this. - Follow-up in [facility] (Dr. Diehl) in approximately 3 [...] use disorder who initially was admitted to [facility] from 03/29/2019 to 03/31/2019 after presenting [...] use disorder who initially was admitted to [facility] from 03/29/2019 to 03/31/2019 after presenting [...] up with your primary care provider in [place], [place] for ongoing monitoring of this. - Follow-up in [facility] (Dr. Diehl) in approximately 3 [...] only on level surfaces with therapist managing phototypesetting equipment monitor while inpatient. Stairs not assessed. RECOMMENDATIONS: [...] by Jessie Candelario P.T., D.P.T. Contact information: [facility], [address] Beryl Gaytan, Laquita Guardado - 04/05/2019 7:21 AM CDT Take a copy of this after visit summary to your appointment(s). [place], [place] April 10, 2019 -Tuesday --11:15 AM - Hospital Follow-Up with Dr. Rosalva MD Colleague of Juana Franz MD primary care provider, at [facility] RECOMMENDATIONS: * * [facility] You may have outpatient appointments at [facility] that changed during your hospitalization. Refer to your [facility] Patient Visit Guide (PVG) for the most current schedule of appointments and detailed instructions of tests/procedures. Call [phone], if you did not receive an PVG or need to CANCEL any [facility] appointment(s). You were discharged from [...] No acute overnight events. Vertigo has improved. Fghj-rj-hranpljx headache continues. No new symptoms or concerns. [...] use disorder who initially was admitted to [facility] from 03/29/2019 to 03/31/2019 after presenting [...] being followed by a provider at the [facility]. Dose was increased to 1.5 tabs (of [...] Noted ??? Rhinosinusitis Chronic 03/01/2019 ??? Stroke ([facility]) 03/29/2019 ??? Anxiety Generalized Disorder 03/29/2019 ??? Chronic Pain Syndrome 03/29/2019 ??? Fibromyalgia 03/29/2019 ??? 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 Sinusitis Recurrent 03/29/2019 ??? 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 Nicotine Dependence Cigarettes 03/29/2019 ??? 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 Transient Ischemic Attack ??? Aneurysm Cerebral Unruptured ([facility]) 03/30/2019 ??? Patent Foramen Ovale ([facility]) 03/31/2019 Current Facility-Administered Medications: ??? acetaminophen [...] shows no new changes. MRI may not waste/materials exchange specialist at this point as she is [...] 0 and symmetric in all muscle groups. Crjezg-qquu-sosqcq and heel- montes testing is normal. Deep [...] to clarify this, but would not necessarily waste/materials exchange specialist. An MRI brain with and without [...] baseline. Have triaged to therapy only; no nutritional chemist consult appears to be necessary at this time. If at any time, the therapists or referring service feel that a nutritional chemist review is necessary, please send a new [...] Prior Function / Occupational Profile Level of [place]: Independent with ADLs and functional transfers Lives [...] Goal Met 04/05/19 Progress: Improving as expected @[id number])@ Plan Patient agrees with the plan of [...] Prior Function / Occupational Profile Level of [place]: Independent with ADLs and functional transfers Lives [...] for safety and for therapist to bring phototypesetting equipment monitor, no obvious loss of balance noted, patient appeared steady with quick turns Training/Intervention: supervision for therapist to bring phototypesetting equipment monitor Response: Patient mobilizing 200+ meters with [...] for safety and for therapist to bring phototypesetting equipment monitor, no obvious loss of balance noted, patient appeared steady with quick turns Training/Intervention: supervision for therapist to bring phototypesetting equipment monitor Response: Patient mobilizing 200+ meters with [...] use disorder who initially was admitted to [facility] from 03/29/2019 to 03/31/2019 after presenting [...] Potassium, S 4.1 3.6 - 5.2 04/05/2019 [facility] mmol/L 9:28 AM CDT LABORATORIES - [facility] Sodium, S 142 135 - 145 04/05/2019 [facility] mmol/L 9:28 AM CDT LABORATORIES - [facility] Chloride, S 105 98 - 107 04/05/2019 [facility] mmol/L 9:28 AM CDT LAB[facility]ATORIES - [facility] Bicarbonate, S 25 22 - 29 04/05/2019 [facility] mmol/L 9:28 AM CDT LABORATORIES - [facility] Anion Gap 12 7 - 15 04/05/2019 [facility] 9:28 AM CDT LABORATORIES - [facility] BUN (Blood Urea 20 6 - 21 04/05/2019 [facility] Nitrogen), S mg/dL 9:28 AM CDT [facility] Creatinine 0.88 0.59 - 04/05/2019 [facility] 1.04 mg/dL 9:28 AM CDT LABORATORIES [facility] eGFR-Non 74 >=60 04/05/2019 [facility] Black/ mL/min/BSA 9:28 AM CDT LABORATORIES [facility] Comment: ----ADDITIONAL INFORMATION---- Estimated GFR calculated using the 2009 CKD_EPI creatinine equation. eGFR-Black/ 86 >=60 mL/min/BSA 04/05/2019 9:28 [facility] CDT LABORATORIES [facility] Comment: ----ADDITIONAL INFORMATION---- Estimated GFR calculated using the 2009 CKD_EPI creatinine equation. Calcium, Total, S 9.2 8.6 - 10.0 mg/dL 04/05/2019 9:28 AM [facility] Glucose, S 124 70 - 140 mg/dL 04/05/2019 9:28 AM [facility] CDT [facility] Specimen Anatomical Collection Method Collection Time Receive d Time (Source) Location / / Volume Laterality Blood (Blood, 04/05/2019 8:07 AM 04/05/20 19 8:26 Venous) CDT AM CDT Clemente Aiken M.D. LAB BLOOD ADD-ON Performing Organization Address City/State/ZIP Code Phon e Number [facility] LABORATORIES - [address] [place] [address] 05 [facility] CBC with Differential, Blood (04/05/2019 8:07 AM CDT) [facility] Method Time Signature Hemoglobin 12.9 11.6 - 04/05/2019 [facility] 15.0 g/dL 8:38 AM CDT LABORATORIES [facility] Hematocrit 38.0 35.5 - 04/05/2019 [facility] 44.9 % 8:38 AM CDT LABORATORIES [facility] Erythrocytes 3.94 3.92 - 04/05/2019 [facility] 5.13 8:38 AM CDT LABORATORIES - x10(12)/L [facility] MCV 96.4 78.2 - 04/05/2019 [facility] 97.9 fL 8:38 AM CDT LABORATORIES [facility] RBC Distrib Width 13.2 12.2 - 04/05/2019 [facility] 16.1 % 8:38 AM CDT [facility]ATORIES - [facility] Platelet Count 226 157 - 371 04/05/2019 [facility] x10(9)/L 8:38 AM CDT LAB[facility]ATORIES - [facility] Leukocytes 5.5 3.4 - 9.6 04/05/2019 [facility] x10(9)/L 8:38 AM CDT [facility]ATORIES - [facility] Neutrophils 3.00 1.56 - 04/05/2019 [facility] 6.45 8:38 AM CDT LABORATORIES - x10(9)/L [facility] Lymphocytes 1.84 0.95 - 04/05/2019 [facility] 3.07 8:38 AM CDT LABORATORIES - x10(9)/L [facility] Monocytes 0.37 0.26 - 04/05/2019 [facility] 0.81 8:38 AM CDT LABORATORIES - x10(9)/L [facility] Eosinophils 0.22 0.03 - 04/05/2019 [facility] 0.48 8:38 AM CDT LABORATORIES - x10(9)/L [facility] Basophils 0.05 0.01 - 04/05/2019 [facility] 0.08 8:38 AM CDT LABORATORIES - x10(9)/L [facility] Specimen Anatomical Collection Method Collection Time Receive d Time (Source) Location / / Volume Laterality Blood (Blood, 04/05/2019 8:07 AM 04/05/20 19 8:26 Venous) CDT AM CDT Clemente Aiken M.D. LAB BLOOD ADD-ON Performing Organization Address City/State/ZIP Code Phon e Number [facility] LABORATORIES - [address] [place], [place] [address] [facility] (ABNORMAL) Prothrombin Time (PT/INR) (04/05/2019 8:07 AM CDT) [employer] gist Method Time Signature Prothrombin 21.9 (H) 9.4 - 04/05/2019 [facility] Time, P 12.5 sec 8:44 AM CDT LABORATORIES [facility] INR 2.0 0.9 - 1.1 04/05/2019 [facility] 8:44 AM CDT LABORATORIES [facility] Comment: ----ADDITIONAL INFORMATION---- Standard intensity warfarin therapeutic range: 2.0 to 3.0 ?? High intensity warfarin therapeutic rang e: 2.5 to 3.5 Specimen Anatomical Collection Method Collection Time Receive d Time (Source) Location / / Volume Laterality Blood (Blood, 04/05/2019 8:07 AM 04/05/20 8:26 Venous) CDT AM CDT Clemente Aiken M.D. LAB BLOOD ADD-ON Performing Organization Address City/State/ZIP Code Phon e Number [facility] LABORATORIES - [address] [place], [place] [address] [facility] CT Head Neck Angiogram with IV Contrast [...] CDT) athologist Signature Heparin 0.81 IU/mL 04/04/2019 [facility] Anti-Xa, P 7:40 PM CDT LABORATORIES - [facility] Comment: UFH therapeutic range: ?? 0.30-0.70 [...] LAB BLOOD NON ADD-ON Performing Organization Address [facility] Phon e Number [facility] LABORATORIES - [address] [place], [place] [address] [facility] (ABNORMAL) Prothrombin Time (PT/INR) (04/04/2019 5:25 PM CDT) [employer] [facility] Method Time Signature Prothrombin 20.1 (H) 9.4 - 04/04/2019 [facility] Time, P 12.5 sec 5:54 PM CDT LABORATORIES [facility] INR 1.8 0.9 - 1.1 04/04/2019 [facility] 5:54 PM CDT [facility] - [facility] Comment: ----ADDITIONAL INFORMATION---- Standard intensity warfarin therapeutic range: 2.0 to 3.0 ?? High intensity warfarin therapeutic rang e: 2.5 to 3.5 Specimen Anatomical Collection Method Collection Time Receive d Time (Source) Location / / Volume Laterality Blood (Blood, 04/04/2019 5:25 PM 04/04/20 19 5:32 Venous) CDT PM CDT Clemente Aiken M.D. LAB BLOOD ADD-ON Performing Organization Address [facility] Phon e Number [facility] LABORATORIES - [address] [place] [address] [facility] (ABNORMAL) CBC with Differential, Blood (04/04/2019 5:25 PM CDT) [employer] [facility] Method Time Signature Hemoglobin 12.1 11.6 - 04/04/2019 [facility] 15.0 g/dL 5:35 PM CDT [facility] Hematocrit 36.3 35.5 - 04/04/2019 [facility] 44.9 % 5:35 PM CDT [facility] Erythrocytes 3.76 (L) 3.92 - 04/04/2019 [facility] 5.13 5:35 PM CDT LABORATORIES - x10(12)/L [facility] MCV 96.5 78.2 - 04/04/2019 [facility] 97.9 fL 5:35 PM CDT LABORATORIES - [facility] RBC Distrib 12.9 12.2 - 04/04/2019 [facility] Width 16.1 % 5:35 PM CDT LABORATORIES - [facility] Platelet Count 224 157 - 371 04/04/2019 [facility] x10(9)/L 5:35 PM CDT LABORATORIES - [facility] Leukocytes 4.6 3.4 - 9.6 04/04/2019 [facility] x10(9)/L 5:35 PM CDT LABORATORIES - [facility] Neutrophils 2.09 1.56 - 04/04/2019 [facility] 6.45 5:35 PM CDT LABORATORIES - x10(9)/L [facility] Lymphocytes 1.88 0.95 - 04/04/2019 [facility] 3.07 5:35 PM CDT LABORATORIES - x10(9)/L [facility] Monocytes 0.39 0.26 - 04/04/2019 [facility] 0.81 5:35 PM CDT LABORATORIES - x10(9)/L [facility] Eosinophils 0.18 0.03 - 04/04/2019 [facility] 0.48 5:35 PM CDT LABORATORIES - x10(9)/L [facility] Basophils 0.04 0.01 - 04/04/2019 [facility] 0.08 5:35 PM CDT LABORATORIES - x10(9)/L [facility] Specimen Anatomical Collection Method Collection Time Receive d Time (Source) Location / / Volume Laterality Blood (Blood, 04/04/2019 5:25 PM 04/04/20 19 5:32 Venous) CDT PM CDT Clemente Aiken M.D. LAB BLOOD ADD-ON Performing Organization Address City/State/ZIP Code Phon e Number [facility] LABORATORIES - [address] [place], [place] [address] [facility] (ABNORMAL) APTT (Activated Partial Thromboplastin Time) (04/04/2019 5:25 PM CDT) Analysis Performed At Patho logist Time Signature Activated 44 (H) 25 - 37 04/04/2019 [facility] Partial sec 5:57 PM CDT LABORATORIES - [facility] Time[facility] Specimen Anatomical Collection Method Collection Time Receive d Time (Source) Location / / Volume Laterality Blood (Blood, 04/04/2019 5:25 PM 04/04/20 19 5:32 Venous) CDT PM CDT Clemente Aiken M.D. LAB BLOOD ADD-ON Performing Organization Address City/[facility]/ZIP Code Phon e Number [facility] LABORATORIES - [address] [place] [address] [facility] Magnesium (04/04/2019 5:25 PM CDT) P athologist Signature Magnesium, S 2.3 1.7 - 2.3 04/04/2019 [facility] mg/dL 6:21 PM CDT LABORATORIES - [facility] Specimen Anatomical Collection Method Collection Time Receive d Time (Source) Location / / Volume Laterality Blood (Blood, 04/04/2019 5:25 PM 04/04/20 19 5:40 Venous) CDT PM CDT Clemente Aiken M.D. LAB BLOOD ADD-ON Performing Organization Address City/[facility]/ZIP Code Phon e Number [facility] LABORATORIES - [address] [place] [address] 05 [facility] Phosphorus Inorganic (04/04/2019 5:25 PM CDT) Analysis Performed At Patho logist Time Signature Phosphorus 3.8 2.5 - 4.5 04/04/2019 [facility] (Inorganic), S mg/dL 6:21 PM CDT LABORATORIES - [facility] Specimen Anatomical Collection Method Collection Time Receive d Time (Source) Location / / Volume Laterality Blood (Blood, 04/04/2019 5:25 PM 04/04/20 19 5:40 Venous) CDT PM CDT Clemente Aiken M.D. LAB BLOOD ADD-ON Performing Organization Address City/[facility]/ZIP Code Phon e Number [facility] LABORATORIES - [address] [place], [place] [address] [facility] (ABNORMAL) Comprehensive Metabolic Panel (04/04/2019 5:25 PM CDT) Patholo gist Method Time Signature Potassium, S 3.5 (L) 3.6 - 5.2 04/04/2019 [facility] mmol/L 6:21 PM CDT LABORATORIES [facility] Sodium, S 141 135 - 145 04/04/2019 [facility] mmol/L 6:21 PM CDT LABORATORIES - [facility] Chloride, S 105 98 - 107 04/04/2019 [facility] mmol/L 6:21 PM CDT LABORATORIES - [facility] Bicarbonate, S 23 22 - 29 04/04/2019 [facility] mmol/L 6:21 CDT LABORATORIES - [facility] Anion Gap 13 7 - 15 04/04/2019 [facility] 6:21 PM CDT LABORATORIES - [facility] BUN (Blood Urea 20 6 - 21 04/04/2019 [facility] Nitrogen), S mg/dL 6:21 PM CDT LABORATORIES - [facility] Creatinine 0.90 0.59 - 04/04/2019 [facility] 1.04 6:21 CDT LABORATORIES - mg/dL [facility] eGFR-Non 72 >=60 04/04/2019 [facility] Black/ mL/min/BS 6:21 CDT LABORATORIES - [place] [facility] Comment: ----ADDITIONAL INFORMATION---- Estimated GFR calculated using the 2009 CKD_EPI creatinine equation. eGFR-Black/ 83 >=60 mL/min/BSA 04/04/2019 6:21 [facility] [place] CDT LABORATORIES - [facility] Comment: ----ADDITIONAL INFORMATION---- Estimated GFR calculated using the 2009 CKD_EPI creatinine equation. Calcium, Total, S 8.6 8.6 - 10.0 04/04/2019 6:21 [facility] mg/dL CDT LABORATORIES [facility] Glucose, S 96 70 - 140 04/04/2019 6:21 [facility] mg/dL CDT LABORATORIES [facility] Protein, Total, S 6.2 (L) 6.3 - 7.9 04/04/2019 6:21 [facility] g/dL CDT LABORATORIES [facility] Albumin, S 4.1 3.5 - 5.0 04/04/2019 6:21 [facility] g/dL PM CDT LABORATORIES [facility] Aspartate 21 8 - 43 U/L 04/04/2019 6:21 [facility] Aminotransferase (AST), CDT LABORA TORIES - S [facility] Alkaline Phosphatase, S 73 35 - 104 U/L 04/04/2019 6: 21 [facility] CDT LABORATORIES [facility] Alanine Aminotransferase 14 7 - 45 U/L 04/04/2019 6:2 [facility] (ALT), S PM CDT LABORATORIES - [facility] Bilirubin, Total, S 0.2 <=1.2 mg/dL 04/04/2019 6:21 [facility] PM CDT LABORATORIES - [facility] Specimen Anatomical Collection Method Collection Time Receive d Time (Source) Location / / Volume Laterality Blood (Blood, 04/04/2019 5:25 PM 04/04/20 19 5:40 Venous) CDT PM CDT Clemente Aiken M.D. LAB BLOOD ADD-ON Performing Organization Address City/State/ZIP Code Phon e Number [facility] LABORATORIES - [address] [place], [place] [address] [facility] documented in this encounter Visit Diagnoses Diagnosis [...] Cleary R.N.) 0841 (Given - Provider: Dia Stafofrd R.N.) 10 mg, oral, 2 times daily, [...] Kiara Curry R.N., CRN - Comment: LOT# [id number]) 1-200 mL, intravenous, Once in imaging, contrast, [...]
--- OUTSIDE RECORDS SUMMARY | 2022-08-01 07:51 | XMS_ITS | Encounter Summary ---
:1965 Author Organization [facility] Address [address] [place] [address] Care Team Providers Name Role Phone Unavailable Primary Care Provider Unavailable Reason for Visit Reason Onset Date Comments [facility] Med Request 03/30/2019 Encounter Details Date Type Department Care Team Description 03/30/2019 Clinical [facility] Med Request Nicotine Kenna Bose M.S., [place], C.T.T.S. [facility] in [place], [place] [address] [place] [address] Social History Tobacco Use Types Packs/Day Years [...] you attend jew or Patient refused 2021 denominational services? Do [...] CDT Please send the following to the [facility] 1) 14 mg patch 2) [...]
--- OUTSIDE RECORDS SUMMARY | 2022-08-01 07:51 | XMS_ITS | Encounter Summary ---
:[address] [facility] Address [address] [place] [address] Care Team Providers Name Role Phone Unavailable [...] you attend sabianist or Patient refused 2021 samaritan services? Do [...]
--- OUTSIDE RECORDS SUMMARY | 2022-08-01 07:51 | XMS_ITS | Encounter Summary ---
:1965 Author Organization [facility] Address [address] [place] [address] Care Team Providers Name Role Phone Unavailable Primary Care Provider Unavailable Reason for Visit Outpatient (Routine) - Closed Specialty Diagnoses / Procedures Referred By Contact Refer red To Contact Otorhinolaryngology Diagnoses Sinus Nose Disorder Sinusitis Chronic [facility] [address] [place] [address] Referral ID Status Reason Start Date Expiration Date Visits Requ ested Visits Authorized [id number] Closed 01/10/2019 01/10/2020 1 1 Encounter Details Date Type Department Care Team Description 03/01/2019 Comprehensive Visit Department of [place], Sinusit is Chronic (Primary Dx); Otorhinolaryngology in [place] , [facility] [address] [facility] [address] [place] [address] [place] [id number] Social History Tobacco Use Types Packs/Day Years [...] you attend moravian or Patient refused 2021 cheondoism services? 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 Decongestion: no improvement with decongestion. Modified Dougherty: not performed. Rigid exam with a 30 [...] obtained. - Obtained outside operative reports from [place] - Discussed risks and benefits including but [...]
--- OUTSIDE RECORDS SUMMARY | 2022-08-01 07:51 | XMS_ITS | Encounter Summary ---
:1965 Author Organization [facility] Address [address] [place] [address] Care Team Providers Name Role Phone Unavailable Primary Care Provider Unavailable Encounter Details Date Type Department Care Team Description 09/25/2015 Hospital Encounter HX [facility] Hernesto Watson M.D. [address], [address] [place] [address] (Wo rk) Social History Tobacco [...] you attend rastafarian or Patient refused 2021 druze services? Do [...] KUNZ LPN On: 09/25/2015 03:38 PM Source: [facility] POWERCHART Document Id: [id number] documented in this encounter Miscellaneous Notes Telephone Encounter - Conversion, Historical Provider Ser - 05/11/2017 11:32 AM CDT *Phone Message/Dr. Watson Document Contains Addenda Addendum by IVY BENITEZ on May 11, 2017 13:27:22 CDT From: IVY BENITEZ ( [employer]wen Diesel Instructor) To: Physical Medicine and Rehabilitation Staff; Sent: 05/11/2017 13:27:22 CDT Subject: RE: *Phone Message/Dr. Watson Left message on patients phone regarding this appointment. Addendum by NIKKIE GANDHI LPN on May 11, 2017 12:57:21 CDT From: NIKKIE GANDHI LPN ( Physical Medicine and Rehabilitation Staff) To: [employer]wen [employer] Instructor; Sent: 05/11/2017 12:57:21 CDT Subject: RE: *Phone Message/Dr. Watson 27th noon, please reschedule. From: IVY BENITEZ ( [employer]wen Diesel Instructor) To: Physical Medicine and Rehabilitation Staff; Sent: [...] come today, she would like it rescheduled [facility] since Dr. Romero wanted her to have it done. Please call her back at [phone] to advise. Advice/Action: Source used: ( ) [...] back cell phone number ( ) [facility] Document Id: [id number] Miscellaneous - Nikkie Gandhi L.P.N. - 05/04/2017 4:19 PM CDT *General Message Document Contains Addenda Addendum by ISIDRO HI on May 04, 2017 16:42:57 CDT From: ISIDRO HI ( [employer]wen [employer] Instructor) To: Physical Medicine and Rehabilitation Staff; Sent: 05/04/2017 16:42:57 CDT Subject: RE: *General Message Called patient and scheduled as requested. From: NIKKIE GANDHI LPN ( Physical Medicine and Rehabilitation Staff) To: Ewen Diesel Instructor; Sent: 05/04/2017 16:19:56 CDT Subject: *General Message Please call patient to schedule for bilateral upper extremity EMG. 05/11/17 at 11:45 am. 1 hour Source: [email or web address] Document Id: [id number] Electronically signed by Avinash [facility] Hospitalzen Drilling Field Operator [id number] at 06/01/2017 1:18 AM CDT documented in this encounter Plan of Treatment Not on filedocumented as of this encounter Visit Diagnoses Not on filedocumented in this encounter
--- OUTSIDE RECORDS SUMMARY | 2022-08-01 07:51 | XMS_ITS | Encounter Summary ---
:1965 Author Organization [facility] Address [address] [place] [address] Care Team Providers Name Role Phone Unavailable [...] you attend judaism or Patient refused 2021 cheondoism services? Do [...]
--- OUTSIDE RECORDS SUMMARY | 2022-08-01 07:51 | XMS_ITS | Encounter Summary ---
:1965 Author Organization [facility] Address [address] [place] [address] Care Team Providers Name Role Phone Unavailable Primary Care Provider Unavailable Reason for Referral Outpatient (Routine) - Closed Specialty Diagnoses / Procedures Referred By Contact Refer red To Contact Neurology Diagnoses Stroke (HCC) Thrombosis Arterial (HCC) Aneurysm Cerebral Unruptured (HCC) Fernie Soriano M.D. [facility] [address] [place] [phone] Referral ID Status Reason Start Date Expiration Date Visits Requ ested Visits Authorized [id number] Closed 03/31/2019 03/30/2020 1 1 Reason for Visit Reason Comments Dizziness Evaluated in ol[place] with CT scan. Headache Encounter Details Date Type Department Care Team Description 03/29/2019 - Hospital Encounter [facility] Alfredo Rausch M.D., M.A. [address] [place] [address] Stroke (HCC) (Primary Dx); [facility] [address] [place] [phone] Transient Ischemic Attack; [facility], Nan Rios M.D. [address] [place] [phone] Thrombosis Arterial (HCC); [facility], Nicotine Dependence Cigarettes; Second floor Aneurysm Cerebral Unruptured ([facility]) [address] [place] [address] Social History Tobacco Use Types [...] you attend congregation or Patient refused 2021 mandaen services? Do [...] patient, follows with Dr. Estephanie Franz in [place], [place]. Primary Care Provider Phone Number: None [...] and PCP follow-up with Dr. Franz in [place], [place], scheduled for 04/02/2019. - Please be [...] 04/10/2019 2:15 PM Darlin Olmedo M.D. [facility] Spec TEST RESULTS PENDING AT DISCHARGE [...] speech at the time. She presented to [facility], where MRI/MRA head showed multiple foci of [...] was discharged on a weekend, our clinical commercial lines account assistant will arrange for PCP follow-up and [...] speech at the time. She presented to [facility], where MRI/MRA head showed multiple foci of [...] was discharged on a weekend, our clinical commercial lines account assistant will arrange for PCP follow-up and INR checks on Tuesday. RECOMMENDATIONS: - Patient to continue enoxaparin 70 mg (1 mg/kg) BID bridge to warfarin with goal INR 2-3. Patient to receive INR checks and PCP follow-up with Dr. Franz in [place], [place] as soon as possible after discharge. [...] this after visit summary to your appointment(s). [place], [place] April 02, 2019 - Tuesday --12:30 PM - Hospital Follow-Up with Dr. Gold MD, Colleague of Juana Franz MD, primary care provider, at [facility] RECOMMENDATIONS: * April 02, 2019 at 9:30 AM [facility] INR Check * [facility] You may have outpatient appointments at [facility] that changed during your hospitalization. Refer to your [facility] Patient Visit Guide (PVG) for the most current schedule of appointments and detailed instructions of tests/procedures. Call [phone], if you did not receive an PVG or need to CANCEL any [facility] appointment(s). You were discharged from the Neurology [...] are intact. There is no dysmetria on payamj-lb-gmeg and vvpe-nj-tiir. There are no abnormal or extraneous movements. [...] next week (to be arranged by clinical commercial lines account assistant, in-basket message sent). Will also require [...] --Will arrange for PCP appt (Dr. Franz, [place], [place]) for INR monitoring 04/02 or earliest [...] page the neurology stroke/cerebrovascular disease service pager [phone]) with any questions orconcerns. Kylie Rubio RRebekah. [...] are intact. There is no dysmetria on lawkhh-fp-jeqs and itok-bq-ndbt. There are no abnormal or extraneous movements. [...] Findings discussed at 2:03 p.m with pager [phone] Additional Diagnostic Studies Ecg 12 Lead Result [...] page the neurology stroke/cerebrovascular disease service pager ([phone]) with any questions orconcerns. documented in this [...] the day of presentation and came [facility], although head CT did not [...] developed a headache approximately 45 min later. [place] room was tilting, not spinning, and had [...] dull and mild now. She presented to [facility], where MRI/MRA head showed multiple foci of [...] are intact. There is no dysmetria on csjtge-nc-zxfh and bojw-ae-jnqg. There are no abnormal or extraneous movements. [...] Findings discussed at 2:03 p.m with pager [phone] Additional Diagnostic Studies ASSESSMENT / PLAN Ms. [...] Please page the stroke/cerebrovascular neurology service pager [phone]) for any questions or concerns. STROKE DOCUMENTATION: [...] Prior Function / Occupational Profile Level of Hitchcock: Independent with ADLs and functional transfers, Independent [...] Score: 24 Basic Mobility Standardized Score: 61.14 [facility] 0-100% Score: 0 % Basic Mobility [facility] Modifier: CH INTERPRETATION: Clinicians answer the AM-PAC [...] 53 y.o. female who was seen at [facility] and is being evaluated for Tobacco [...] Prior Function / Occupational Profile Level of Hitchcock: Independent with ADLs and functional transfers, Independent [...] be independent with home exercise resistive theraband ([place]) program for left shoulder and elbow (MET) OT Goal #3 Date: 03/30/19 @FLOW12([id number])@ Plan Patient agrees with the plan of [...] living independently in her own apartment in [place] until yesterday morning when she noted the [...] Ms. Mosquera was initially taken to the [facility] where MRI/MRA (images which I reviewed in QREADS) revealed bila teral small areas of restricted diffusion in posterior distribution involving both the cerebellar and occipital lobes. The etiology was presumed embolic and she was transferred to [facility] for further evaluation here. Upon arrival at [facility], Ms. Mosquera was described as alert, in [...] has lived alone in an apartment in [place] for,I believe, 5 years. She is unemployed, [...] tone: Upper and lower extremities 0/0. Coordination: Ksylze-yz-cdsz was 0/0. Satellite sign was symmetric. Cranial nerves II through XII: Extraocular movements were intact. Visual jhaveri were intact. Lmwt-je-crjjqokm decreased hearing acuity bilaterally. Smile symmetric. Tongue [...] diagnostic data. 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 female who presents to the [facility] for evaluation of vertigo and [...] an Emergency Neurology consult note. Please page [phone] with any additional questions. I personally spent [...] CHIEF COMPLAINT/REASON FOR VISIT Dizziness (Evaluated in olpe with CT scan. ) and Headache HISTORY OF PRESENT ILLNESS 53-year-old female who presents from outside facility to [facility] ED with a chief concern of [...] She was transported from outside hospital to [facility] for further evaluation management by Neurology here. [...] do basic arithmetic No visual agnosia No azuc-ke-wrqso agnosia Jfniaq-yb-bszt normal Xkud-de-qtom normal Skin: Skin is warm, dry, intact [...] to the emergency department by ambulance from [facility] for evaluation of headache and difficulty with balance. Patient states that she woke up this morning and felt like her body was drunk. She subsequently developed a headache. She was seen at the outside hospital and underwent neuro imaging, laboratory evaluation, EKG testing. She now presents for neurologicalevaluation at [facility]. She is currently complaining of fatigue only. Neuro imaging at [place]: MRI head MRA demonstrates multiple foci of [...] speech at the time. She presented to [facility], where MRI/MRA head showed multiple foci of [...] was discharged on a weekend, our clinical commercial lines account assistant will arrange for PCP follow-up and INR checks on Tuesday. documented in this encounter Plan of Treatment Scheduled Referrals Name Type Priority Associated Order Schedule Diagnoses Neurology - Outpatient Routine Stroke ([facility]) Expected: Cerebrovascular consult Referral Thrombosis 02/2019 (clinic) Arterial ([facility]) (Approximate), Aneurysm Cerebral Expires: Unruptured ([facility]) 03/31/2022 documented as of this encounter Procedures [...] - Routine 03/30/2019 5:32 Results for HOSPITAL OIL PIPE INSPECTOR - PM CDT this proc edure MONITORED [...] N/A Computed Tomography ARZ LOS, Neuroradiology FLA [facility] Specimen (Source) Anatomical Collection Method [...] the ventral aspect (series 6 image s [id number]). The lumen remains significantly irregular and there [...] well seen. The RADHA, MCA, a nd RETARDER OPERATOR branches are unremarkable in appearance. Stable [...] the ventral aspect (series 6 image s [id number]). The lumen remains significantly irregular and there [...] well seen. The RADHA, MCA, a nd RETARDER OPERATOR branches are unremarkable in appearance. Stable [...] Prothrombin Time (PT/INR) (03/31/2019 8:12 AM CDT) [facility] Method Time Signature Prothrombin 11.5 9.4 - 12.5 03/31/2019 [facility] Time, P sec 8:46 AM CDT [facility] INR 1.0 0.9 - 1.1 03/31/2019 [facility] 8:46 AM CDT [facility] Comment: ----ADDITIONAL INFORMATION---- Standard intensity warfarin therapeutic range: 2.0 to 3.0 ?? High intensity warfarin therapeutic rang e: 2.5 to 3.5 Specimen Anatomical Collection Method Collection Time Receive d Time (Source) Location / / Volume Laterality Blood (Blood, 03/31/2019 8:12 AM 03/31/20 19 8:32 Venous) CDT AM CDT Trent Ferrer M.D. LAB BLOOD ADD-ON Performing Organization Address City/State/ZIP Code Phon e Number [facility]ATORIES - [address] [place], [place] [address] [facility] CBC without Differential (03/31/2019 8:12 AM CDT) [facility] gist Method Time Signature Hemoglobin 12.9 11.6 - 03/31/2019 [facility] 15.0 g/dL 8:37 AM CDT [facility] Hematocrit 39.6 35.5 - 03/31/2019 [facility] 44.9 % 8:37 AM CDT [facility] Erythrocytes 4.06 3.92 - 03/31/2019 [facility] 5.13 8:37 AM CDT LABORATORIES - x10(12)/L [facility] MCV 97.5 78.2 - 03/31/2019 [facility] 97.9 fL 8:37 AM CDT [facility] RBC Distrib Width 13.2 12.2 - 03/31/2019 [facility] 16.1 % 8:37 AM CDT [facility] Platelet Count 256 157 - 371 03/31/2019 [facility] x10(9)/L 8:37 AM CDT LABORATORIES - [facility] Leukocytes 5.3 3.4 - 9.6 03/31/2019 [facility] x10(9)/L 8:37 AM CDT [facility] Specimen Anatomical Collection Method Collection Time Receive d Time (Source) Location / / Volume Laterality Blood (Blood, 03/31/2019 8:12 AM 03/31/20 19 8:31 Venous) CDT AM CDT Trent Ferrer M.D. LAB BLOOD ADD-ON Performing Organization Address City/State/ZIP Code Phon e Number [facility]ATORIES - [address] [place], [place] [address] [facility] HOLTER MONITOR - HOSPITAL OIL PIPE INSPECTOR - MONITORED IN HOSPITAL OR ED DISCHARGE (03/30/2019 5:32 PM CDT) [facility] gist Method Time Signature Recording Date [id number] HOLTER SENTINEL Analysis Date 20,190,510 HOLTER SENTINEL Max Heart Rate 125 bpm HOLTER SENTINEL Max Heart Rate [id number] HOLTER Time SENTINEL Min Heart Rate 46 bpm HOLTER SENTINEL Min Heart Rate [id number] HOLTER Time SENTINEL Mean Heart 71 bpm [...] count HOLTER Hour SENTINEL VE Max Per [id number] HOLTER Hour Time SENTINEL AF Count 0 count HOLTER SENTINEL SVT Runs 0 count HOLTER SENTINEL SVE Total 106 count HOLTER Beats SENTINEL SVE Percent 0 percent HOLTER Beats SENTINEL SVE Max Per 18 count HOLTER Hour SENTINEL SVE Max Per [id number] HOLTER Hour Time SENTINEL Specimen (Source) Anatomical [...] superior vena cava. Patent foramen ovale. ??No yumc-ts-ehvhw shunt at atrial level. ??Agitated saline injection(s) performed. ??Small umsud-ju-vrbv shunt a t atrial level at rest and with Valsalva release. Pericardial effusion. ??PROCEDURE ??Max sesophageal echocardiogram performed at the request of the primary manager social services. ??Adult probe inserted without difficulty. ??Procedure performed [...] Sedation Narrator or other pertinent record in [facility] for additional procedure and sedation in [...] superior vena cava. Patent foramen ovale. No bcqz-sg-pqvrq s ballesteros at atrial level. Agitated saline injection(s) performed. Small ksbmv-dw-xfvu shunt at atrial level at rest and with Valsalva release. Pericardial effusion. PROCEDURE Transeso phageal echocardiogram performed at the request of the primary manager social services. Adult pr obe inserted without difficulty. Procedure [...] Sedation Narrator or other pertinent record in [facility] for additional procedure and sedation in formation. Transesophageal echocardiogram completed without complications. For the complete report, see the Order-L evel Documents below. See PDF For Result Trent Ferrer M.D. CV ECHO PROCEDURES Prothrombin Time (PT/INR) (03/30/2019 11:42 AM CDT) [facility] Method Time Signature Prothrombin 11.3 9.4 - 12.5 03/30/2019 [facility] Time, P sec 12:05 PM CDT [facility] INR 1.0 0.9 - 1.1 03/30/2019 [facility] 12:05 PM CDT [facility] Comment: ----ADDITIONAL INFORMATION---- Standard intensity warfarin therapeutic range: 2.0 to 3.0 ?? High intensity warfarin therapeutic rang e: 2.5 to 3.5 Specimen Anatomical Collection Method Collection Time Receive d Time (Source) Location / / Volume Laterality Blood (Blood, 03/30/2019 11:42 03/30/2019 Venous) AM CDT 11:51 AM CDT Trent Ferrer M.D. LAB BLOOD ADD-ON Performing Organization Address City/State/ZIP Code Phon e Number [facility] - [address] [facility], [place] [address] [facility] ECG 12 Lead (03/30/2019 9:30 AM CDT) P athologist Signature Ventricular Rate 53 BPM MUSE ECG/Min NH Interval 150 ms MUSE QRSD Interval 84 ms MUSE QT Interval 452 ms MUSE QTC Interval 424 ms MUSE P [place] 7 degrees MUSE R [place] -11 degrees MUSE T Wave [place] 1 degrees MUSE Specimen Anatomical Collection Method [...] Potassium, S 4.1 3.6 - 5.2 03/30/2019 [facility] mmol/L 7:41 AM CDT LABORATORIES - [facility] Sodium, S 141 135 - 145 03/30/2019 [facility] mmol/L 7:41 AM CDT [facility] - [facility] Chloride, S 106 98 - 107 03/30/2019 [facility] mmol/L 7:41 AM CDT [facility] - [facility] Bicarbonate, S 24 22 - 29 03/30/2019 [facility] mmol/L 7:41 AM CDT [facility] - [facility] Anion Gap 11 7 - 15 03/30/2019 [facility] 7:41 AM CDT [facility] - [facility] BUN (Blood Urea 14 6 - 21 03/30/2019 [facility] Nitrogen), S mg/dL 7:41 AM CDT [facility] - [facility] Creatinine 0.73 0.59 - 03/30/2019 [facility] 1.04 mg/dL 7:41 AM CDT [facility] eGFR-Non >90 >=60 03/30/2019 [facility] Black/ mL/min/BSA 7:41 AM CDT LABORATORIES [facility] Comment: ----ADDITIONAL INFORMATION---- Estimated GFR calculated using the 2009 CKD_EPI creatinine equation. eGFR-Black/ >90 >=60 mL/min/BSA 03/30/2019 7:41 [facility] CDT [facility] Comment: ----ADDITIONAL INFORMATION---- Estimated GFR calculated using the 2009 CKD_EPI creatinine equation. Calcium, Total, S 8.9 8.6 - 10.0 mg/dL 03/30/2019 7:41 AM [facility] CDT [facility] S Glucose, S 100 70 - 140 mg/dL 03/30/2019 7:41 AM [facility] CDT [facility]IES [facility] S Specimen Anatomical Collection Method Collection Time Receive d Time (Source) Location / / Volume Laterality Blood (Blood, 03/30/2019 6:21 AM 03/30/20 19 6:52 Venous) CDT AM CDT Trent Ferrer M.D. LAB BLOOD ADD-ON Performing Organization Address City/State/ZIP Code Phon e Number [facility] - [address] (ABNORMAL) CBC without Differential (03/30/2019 6:21 AM CDT) [facility] Method Time Signature Hemoglobin 12.5 11.6 - 03/30/2019 [facility] 15.0 g/dL 6:54 AM CDT [facility] Hematocrit 37.9 35.5 - 03/30/2019 [facility] 44.9 % 6:54 AM CDT [facility] Erythrocytes 3.87 (L) 3.92 - 03/30/2019 [facility] 5.13 6:54 AM CDT LABORATORIES - x10(12)/L [facility] MCV 97.9 78.2 - 03/30/2019 [facility] 97.9 fL 6:54 AM CDT [facility] RBC Distrib 13.5 12.2 - 03/30/2019 [facility] Width 16.1 % 6:54 AM CDT [facility] - [facility] Platelet Count 245 157 - 371 03/30/2019 [facility] x10(9)/L 6:54 AM CDT [facility] Leukocytes 4.1 3.4 - 9.6 03/30/2019 [facility] x10(9)/L 6:54 AM CDT [facility]ATOR[facility] - [facility] Specimen Anatomical Collection Method Collection Time Receive d Time (Source) Location / / Volume Laterality Blood (Blood, 03/30/2019 6:21 AM 03/30/20 19 6:44 Venous) CDT AM CDT Trent Ferrer M.D. LAB BLOOD ADD-ON Performing Organization Address City/[facility] Phon e Number [facility]IES - [address] [place] [address] [facility] Coagulation Factor II Activity Assay (03/30/2019 6:20 AM CDT) athologist Signature Coag Factor II 93 75 - 145 % 03/30/2019 [facility] Assay, P 11:53 AM CDT [facility] Comment: ----ADDITIONAL INFORMATION---- This test has been modified from the tecumseh treyacturer's instructions. Its performance characteri stics were determined by [facility] in a manner co nsistent with CLIA requirements. This test has not bee n cleared or approved by the U.S. Food and Drug Admin istration. Specimen Anatomical Collection Method Collection Time Receive d Time (Source) Location / / Volume Laterality Blood 03/30/2019 6:20 AM 9 CDT 11:12 AM CDT Trent Ferrer M.D. LAB BLOOD ADD-ON Performing Organization Address City/[facility] Phon e Number [facility] - [address] [place] [address] [facility] Protein S Antigen, Total (03/30/2019 6:20 AM CDT) athologist Signature Protein S Ag, 91 80 - 160 % 03/30/2019 [facility] Total, P 11:04 AM CDT [facility] Comment: ----ADDITIONAL INFORMATION---- This test has been modified from the tecumseh ufacturer's instructions. Its performance characteri stics were determined by [facility] in a manner co nsistent with CLIA requirements. This test has not bee n cleared or approved by the U.S. Food and Drug Admin istration. Specimen Anatomical Collection Method Collection Time Receive d Time (Source) Location / / Volume Laterality Blood 03/30/2019 6:20 AM 9 7:17 CDT AM CDT Trent Ferrer M.D. LAB BLOOD NON ADD-ON Performing Organization Address City/[facility]/ZIP [facility] Phon e Number [facility]IES - [address] [place], [place] [address] [facility] Reptilase Time, Plasma (03/30/2019 6:20 AM CDT) athologist Signature Reptilase 17 14 - 23 03/30/2019 [facility] Time, P sec 9:49 AM CDT [facility] Comment: ----ADDITIONAL INFORMATION---- This test has been modified from the kyle cordovar's instructions. Its performance characteri stics were determined by [facility] in a manner co nsistent with CLIA requirements. This test has not bee n cleared or approved by the U.S. Food and Drug Admin istration. Specimen Anatomical Collection Method Collection Time Receive d Time (Source) Location / / Volume Laterality Blood 03/30/2019 6:20 AM 9 7:17 CDT AM CDT Trent Ferrer M.D. LAB BLOOD ADD-ON Performing Organization Address City/[facility] Phon e Number [facility] - [address] [place], [place] [address] [facility] (ABNORMAL) APTT Mix 1:1 (03/30/2019 6:20 AM CDT) P athologist Signature APTT Mix 1:1 42 (H) 26 - 36 03/30/2019 [facility] sec 9:49 AM CDT [facility] Comment: ----ADDITIONAL INFORMATION---- This test has been modified from the kyle yangacturer's instructions. Its performance characteri stics were determined by [facility] in a manner co nsistent with CLIA requirements. This test has not bee n cleared or approved by the U.S. Food and Drug Admin istration. Specimen Anatomical Collection Method Collection Time Receive d Time (Source) Location / / Volume Laterality Blood 03/30/2019 6:20 AM 9 7:17 CDT AM CDT Trent Ferrer M.D. LAB BLOOD ADD-ON Performing Organization Address [facility] Phon e Number [facility]IES - [address] [place] [address] [facility] Heparin Anti-Xa Assay (03/30/2019 6:20 AM CDT) athologist Signature Heparin 0.38 IU/mL 03/30/2019 [facility] Anti-Xa, P 7:12 AM CDT [facility] Comment: UFH therapeutic range: ?? 0.30-0.70 [...] LAB BLOOD NON ADD-ON Performing Organization Address City/[facility]/ZIP Code Phon e Number [facility] - [address] [place] [address] [facility] Beta-2 Glycoprotein 1 Antibodies, IgG and IgM (03/30/2019 6:20 AM CDT) athologist Signature Beta 2 GP1 Ab <9.4 <15.0 03/30/2019 [facility] IgG, S (Negative) 7:[address] U/mL [facility] Beta 2 GP1 Ab <9.4 <15.0 03/30/2019 [facility] IgM, S (Negative) 7:[address] U/mL [facility] Specimen Anatomical Collection Method Collection Time Receive d Time (Source) Location / / Volume Laterality Blood (Blood, 03/30/2019 6:20 AM 03/30/20 19 9:55 Venous) CDT AM CDT Trent Ferrer M.D. LAB BLOOD ADD-ON Performing Organization Address City/State/ZIP Code Phon e Number [facility] [address] [place] [address] [facility] Phospholipid (Cardiolipin) Antibodies, IgG and IgM (03/30/2019 6:20 AM CDT) P athologist Signature Phospholipid Ab <9.4 <15.0 03/30/2019 [facility] IgM, S (Negative) 3:49 PM CDT [facility] Phospholipid Ab <9.4 <15.0 03/30/2019 [facility] IgG, S (Negative) 3:49 PM CDT [facility] Specimen Anatomical Collection Method Collection Time Receive d Time (Source) Location / / Volume Laterality Blood (Blood, 03/30/2019 6:20 AM 03/30/20 19 9:55 Venous) CDT AM CDT Trent Ferrer M.D. LAB BLOOD ADD-ON Performing Organization Address City/[facility]/ZIP Code Phon e Number [facility] [address] [place], [place] [address] [facility] (ABNORMAL) Thrombophilia Profile (03/30/2019 6:20 AM CDT) Patholo gist Method Time Signature Prothrombin Time 10.9 10.3 - 03/30/2019 [facility] (PT), P 12.8 sec 9:35 AM CDT LABORATORIES - [facility] INR 1.0 03/30/2019 [facility] 9:35 AM CDT [facility] - [facility] Activated 57 (H) 26 - 36 03/30/2019 [facility] Partial sec 9:46 AM CDT LABORATORIES - Thrombopl Time, [facility] DRVVT Screen 0.7 0.0 - 1.1 03/30/2019 [facility] Ratio ratio 9:35 AM CDT [facility] - [facility] Thrombin Time 73 (H) 15 - 23 03/30/2019 [facility] (Bovine), P sec 9:46 AM CDT [facility] - [facility] Comment: ----ADDITIONAL INFORMATION---- This test has been modified from the man ufacturer's instructions. Its performance characteri stics were determined by [facility] in a manner co nsistent with CLIA requirements. This test has not bee n cleared or approved by the U.S. Food and Drug Admin istration. Fibrinogen, P 276 200 - 430 mg/dL 03/30/2019 10:04 AM CDT [facility] Comment: ----ADDITIONAL INFORMATION---- This test has been modified from the tecumseh [employer]id[employer] Internationalacturer's instructions. Its performance characteri stics were determined by [facility] in a manner co nsistent with CLIA requirements. This test has not bee n cleared or approved by the U.S. Food and Drug Admin istration. Fibrinogen 0.26 0.00 - 0.50 03/30/2019 12:44 PM [facility] INIC Equivalent Units mcg/mL U T [facility] (FE) [facility] D-Dimer Units (DDU) 130 0 - 250 ng/mL 03/30/2019 12:44 PM [facility] D-Dimer [facility] Soluble Fibrin <8 0.0 - 7.9 mcg/mL 03/30/2019 1:19 PM [facility] Monomer T [facility] Comment: ----ADDITIONAL INFORMATION---- This test was developed and its performa nce characteristics determined by [facility] in a manner co nsistent with CLIA requirements. This test has not bee n cleared or approved by the U.S. Food and Drug Admin istration. Antithrombin Activity, 99 80 - 130 % 03/30/2019 10:05 AM [facility] P T [facility] Comment: ----ADDITIONAL INFORMATION---- This test has been modified from the tecumseh [employer]acturer's instructions. Its performance characteri stics were determined by [facility] in a manner co nsistent with CLIA requirements. This test has not bee n cleared or approved by the U.S. Food and Drug Admin istration. Protein C Activity, P 131 70 - 150 % 03/30/2019 9:33 A M T [facility] Comment: ----ADDITIONAL INFORMATION---- This test has been modified from the tecumseh [employer]urer's instructions. Its performance characteri stics were determined by [facility] in a manner co nsistent with CLIA requirements. This test has not bee n cleared or approved by the U.S. Food and Drug Admin istration. Protein S Ag, Free, 59 (L) 65 - 160 % 03/30/2019 10:19 AM [facility] P CDT LAB[facility]ATORIES - [facility] Chloe Comment: ----ADDITIONAL INFORMATION---- This test has been modified from the tecumseh [employer]urer's instructions. Its performance characteri stics were determined by [facility] in a manner co nsistent with CLIA requirements. This test has not bee n cleared or approved by the U.S. Food and Drug Admin istration. APCRV Ratio 3.0 >or=2.3 03/30/2019 10:11 [facility] AM CDT LABORATORIES [facility] Prothrombin [id number] Negative Negative 04/02/2019 5:19 [facility] Mutation, B PM CDT LABORATORIES [facility] PTNT Reviewed By Lewis Moreno, 04/02/2019 5:19 [facility] MBBS CDT LABORATORIES [facility] PTNT Interpretation This individual DOES NOT hav e the Prothrombin [id number] mutation. Although the 04/02/2019 5:19 [facility] Prothrombin [id number] mutation is absent, the chloe kang may have other genetic CDT LABORATORIES - and environmental risk factors for thrombosis. Alanna rosa genetic consultation [facility] and counseling of potentially affected family members [facility] testing. Comment: ----ADDITIONAL INFORMATION---- This test is a direct mutation analysis using PCR amplification, signal generation and release by cleavage of se quence specific alleles ([employer], [employer], [place], [place]). This test has been modified from the tecumseh [employer]acturer's instructions. Its performance characteristics were determi jayesh by [facility] in a manner consistent with CLIA requirements. This test has not been cleared or approved by the U.S. Food and Drug Administration . Reviewed by: Milad Emerson M.D. 04/03/2019 1:35 PM [facility] CDT LAB[facility]ATORIES [facility] Interpretation ?Type of Study: ?? Thrombophilia Profile 04/03/2019 1:35 PM [facility] ?IMPRESSION: ??1) Decreased protein S free antigen, a cquired versus CDT LABORATORIES - congenital. ??See comments and suggest clinical correlation. [facility] ?2) Data are consistent with the [...] patient does n ot have the prothrombin [id number] mutation. ?Separately performed and reported testing for beta-2 glycoprotein I and anticardiolipin antibodies (IgG and IgM isotypes) demonstrat ed normal results, providing no evidence of antiphospholipid antibodie s by these methodologies. Specimen Anatomical Collection Method Collection Time Receive d Time (Source) Location / / Volume Laterality Blood (Blood, 03/30/2019 6:20 AM 03/30/20 19 8:13 Venous) CDT AM CDT Narrative [facility] - 04/03/2019 1:37 PM CDT Specimen Information: Specimen ID: [id number] Specimen Type: Blood Specimen Collection Start Date: 9 ??6:20 AM Specimen Received Date: 03/30/2019 ??8:13 AM Specimen ID: [id number] Specimen Type: Blood Specimen Collection Start Date: ??6:20 AM Specimen Received Date: 03/30/2019 ??7:17 AM Specimen ID: [id number] Specimen Type: Blood Specimen Collection Start Date: ??6:20 AM Specimen Received Date: 03/30/2019 ??7:17 AM Specimen ID: [id number] Specimen Type: Blood Specimen Collection Start Date: ??6:20 AM Specimen Received Date: 03/30/2019 ??7:17 AM Specimen ID: [id number] Specimen Type: Blood Specimen Collection Start Date: ??6:20 AM Specimen Received Date: 03/30/2019 ??7:17 AM Specimen ID: [id number] Specimen Type: Blood Specimen Collection Start Date: ??6:20 AM Specimen Received Date: 03/30/2019 ??7:17 AM Trent Ferrer M.D. LAB BLOOD NON ADD-ON Performing Organization Address City/State/ZIP Code Phon e Number [address] [address] [facility] Heparin Anti-Xa Assay (03/29/2019 11:28 PM CDT) P athologist Signature Heparin 0.31 IU/mL 03/30/2019 [facility] Anti-Xa, P 12:05 AM CDT LABORATORIES [facility] Comment: UFH therapeutic range: ?? 0.30-0.70 [...] LAB BLOOD NON ADD-ON Performing Organization Address City/[facility] Phon e Number [facility] LABORATORIES - [address] [address] [facility] Hemoglobin A1c (03/29/2019 6:05 PM CDT) Analysis Performed At Path logist Time Signature Hemoglobin A1c, 5.6 4.0 - 5.6 03/29/2019 [facility] B % 6:50 PM CDT [facility] Specimen Anatomical Collection Method Collection Time Receive d Time (Source) Location / / Volume Laterality Blood (Blood, 03/29/2019 6:05 PM 03/29/20 19 6:28 Venous) CDT PM CDT Trent Ferrer M.D. LAB BLOOD ADD-ON Performing Organization Address City/[facility] Phon e Number [facility] LABORATORIES - [address] [address] [facility] (ABNORMAL) Lipid Panel (03/29/2019 6:05 PM CDT) [facility] gist Method Time Signature Cholesterol, 204 (H) mg/dL 03/29/2019 [facility] Total 7:09 PM CDT [facility] Comment: ----REFERENCE VALUE---- Desirable: < 200 Borderline high: 200 - 239 High: > or = 240 Triglycerides 104 mg/dL 03/29/2019 7:09 PM CDT [facility] Comment: ----REFERENCE VALUE---- Normal: <150 Borderline high: 150-199 High: 200-499 Very high: > or =500 Cholesterol, HDL, S 91 >=50 mg/dL 03/29/2019 7:09 PM CDT [facility] Calculated LDL 92 mg/dL 03/29/2019 7:09 PM CDT [facility] Comment: ----REFERENCE VALUE---- Desirable: <100 Above Desirable: 100-129 Borderline high: 130-159 High: 160-189 Very high: > or =190 Cholesterol, Non-HDL, 113 mg/dL 03/29/2019 7:0 9 PM CDT [facility] LABORATORIES Calculated - [facility] Comment: ----REFERENCE VALUE---- Desirable: <130 Above Desirable: 130-159 Borderline high: 160-189 High: 190-219 Very high: > or =220 Specimen Anatomical Collection Method Collection Time Receive d Time (Source) Location / / Volume Laterality Blood (Blood, 03/29/2019 6:05 PM 03/29/20 19 6:28 Venous) CDT PM CDT Trent Ferrer M.D. LAB BLOOD ADD-ON Performing Organization Address City/[facility] Code Phon e Number [facility] - [address] S-TSH (Thyroid-Stimulating Hormone - Sensitive) (03/29/2019 6:05 PM CDT) athologist Signature TSH, Sensitive 1.6 0.3 - 4.2 03/29/2019 [facility] mIU/L 7:09 PM CDT [facility] Specimen Anatomical Collection Method Collection Time Receive d Time (Source) Location / / Volume Laterality Blood (Blood, 03/29/2019 6:05 PM 03/29/20 19 6:28 Venous) CDT PM CDT Trent Ferrer M.D. LAB BLOOD ADD-ON Performing Organization Address City/[facility]/ZIP Code Phon e Number [facility] LABORATORIES - [address] APTT (Activated Partial Thromboplastin Time) (03/29/2019 4:46 PM CDT) athologist Signature Activated 29 25 - 37 03/29/2019 [facility] Partial sec 5:01 PM CDT LABORATORIES [facility] Specimen Anatomical Collection Method Collection Time Receive d Time (Source) Location / / Volume Laterality Blood (Blood, 03/29/2019 4:46 PM 03/29/20 19 4:52 Venous) CDT PM CDT Trent Ferrer M.D. LAB BLOOD ADD-ON Performing Organization Address City/[facility]/ZIP Code Phon e Number [facility] LABORATORIES - [address] Head Neck Angiogram with IV [...] gs discussed at 2:03 p.m with pager [phone] Narrative 03/29/2019 4:34 PM CDT EXAM: CT [...] gs discussed at 2:03 p.m with pager [phone] Eliseo Mejias M.D. IMG CT PROCEDURES CT [...] gs discussed at 2:03 p.m with pager [phone] Narrative 03/29/2019 4:34 PM CDT EXAM: CT [...] gs discussed at 2:03 p.m with pager [phone] Eliseo Mejias M.D. IMGeronimo CT PROCEDURES (ABNORMAL) CBC with Differential, Blood (03/29/2019 2:04 PM CDT) [facility] Method Time Signature Hemoglobin 12.4 11.6 - 03/29/2019 [facility] 15.0 g/dL 2:11 PM CDT [facility]ATOR[facility] - [facility] Hematocrit 37.0 35.5 - 03/29/2019 [facility] 44.9 % 2:11 PM CDT [facility]ATOR[facility] - [facility] Erythrocytes 3.79 (L) 3.92 - 03/29/2019 [facility] 5.13 2:11 PM CDT LABORATORIES - x10(12)/L [facility] MCV 97.6 78.2 - 03/29/2019 [facility] 97.9 fL 2:11 PM CDT [facility] - [facility] RBC Distrib 13.3 12.2 - 03/29/2019 [facility] Width 16.1 % 2:11 PM CDT [facility] - [facility] Platelet Count 238 157 - 371 03/29/2019 [facility] x10(9)/L 2:11 PM CDT [facility] - [facility] Leukocytes 4.7 3.4 - 9.6 03/29/2019 [facility] x10(9)/L 2:11 PM CDT [facility] - [facility] Neutrophils 2.33 1.56 - 03/29/2019 [facility] 6.45 2:11 PM CDT LABORATORIES - x10(9)/L [facility] Lymphocytes 1.74 0.95 - 03/29/2019 [facility] 3.07 2:11 PM CDT LABORATORIES - x10(9)/L [facility] Monocytes 0.32 0.26 - 03/29/2019 [facility] 0.81 2:11 PM CDT LABORATORIES - x10(9)/L [facility] Eosinophils 0.22 0.03 - 03/29/2019 [facility] 0.48 2:11 PM CDT LABORATORIES - x10(9)/L [facility] Basophils 0.04 0.01 - 03/29/2019 [facility] 0.08 2:11 PM CDT LABORATORIES - x10(9)/L [facility] Specimen Anatomical Collection Method Collection Time Receive d Time (Source) Location / / Volume Laterality Blood (Blood, 03/29/2019 2:04 PM 03/29/20 19 2:08 Venous) CDT PM CDT Eliseo Mejias M.D. LAB BLOOD ADD-ON Performing Organization Address City/State/ZIP Code [facility] e Number [facility] LABORATORIES - [address] [place], [place] [address] [facility] Basic Metabolic Panel (03/29/2019 2:04 PM CDT) Analysis Performed At Patho logist Time Signature Potassium, P 4.0 3.6 - 5.2 03/29/2019 [facility] mmol/L 2:24 PM CDT [facility] Sodium, P 142 135 - 145 03/29/2019 [facility] mmol/L 2:24 PM CDT LABORATORIES [facility] Chloride, P 107 98 - 107 03/29/2019 [facility] mmol/L 2:24 PM CDT LABORATORIES [facility] Bicarbonate, P 24 22 - 29 03/29/2019 [facility] mmol/L 2:24 PM CDT LABORATORIES [facility] Anion Gap, P 11 7 - 15 03/29/2019 [facility] 2:24 PM CDT [facility] BUN (Blood Urea 17 6 - 21 03/29/2019 [facility] Nitrogen), P mg/dL 2:24 PM T [facility] Creatinine 0.81 0.59 - 03/29/2019 [facility] 1.04 mg/dL 2:24 PM T [facility] eGFR-Black/Afri >90 >=60 03/29/2019 [facility] can Monegasque mL/min/BSA 2:24 PM T [facility] Comment: ----ADDITIONAL INFORMATION---- Estimated GFR calculated using the 2009 CKD_EPI creatinine equation. eGFR Non-Black/ 82 >=60 mL/min/BSA 03/29/2019 2:24 PM [facility] Monegasque T [facility] Comment: ----ADDITIONAL INFORMATION---- Estimated GFR calculated using the 2009 CKD_EPI creatinine equation. Calcium, Total, P 8.7 8.6 - 10.0 mg/dL 03/29/2019 2:24 PM [facility] CDT [facility] Glucose, P 101 70 - 140 mg/dL 03/29/2019 2:24 PM [facility] Specimen Anatomical Collection Method Collection Time Receive d Time (Source) Location / / Volume Laterality Blood (Blood, 03/29/2019 2:04 PM 03/29/20 2:08 Venous) CDT PM CDT Eliseo Mejias M.D. LAB BLOOD ADD-ON Performing Organization Address City/State/ZIP Code Phon e Number [facility] LABORATORIES - [address] [place], [place] [address] [facility] documented in this encounter Visit Diagnoses [...] Rosa Gordon R.N.)1534 (Given - Provider: Christiano Vaz.N.)1538 (Given - Provider: Christiano Vaz.N.)1554 (Given - Provider: Sharifa VazN.) Code/trauma/sedation medication, Starting on Tue03/30/19 at 1532 iohexol 350 mg iodine/mL solution 1-200 mL (OMNIPAQUE) (COMPLETED) 1528 (Given - Provider: Princess Atkins R.N.) 1-200 mL, intravenous, Once in imaging, contrast, Starting on Tue03/29/19 at 1526, For 1 dose, Imaging Protocol Orders, Dose per Radiant Medication Guidelines lidocaine 4 % cream 1 application (LMX) 1 application, topical, 4 times daily NH N, mild pain or score 1-3 of [...] 8 hours PRN, nausea, v omiting, Starting Clemnetine 03/29/19 at 1730, When splitting ODT at bedside, handle with gloves and a pill splitter to prevent moisture contact. oxyCODONE IR tablet 5 mg (ROXICODONE) 2345 (Given - Pr ovider: Makenzie Childs, R.N.) 0638 (Given - Provider: Makenzie Childs R .N.)1315 (Given - Provider: Julieth Whitt R.N.)8892 (Given - Provider: Marlene D Salwey, R.N.) [...]
--- OUTSIDE RECORDS SUMMARY | 2022-08-01 07:51 | XMS_ITS | Encounter Summary ---
:1965 Author Organization [facility] Address [address] [place] [address] Care Team Providers Name Role Phone Unavailable [...]
--- OUTSIDE RECORDS SUMMARY | 2022-08-01 07:51 | XMS_ITS | Encounter Summary ---
:1965 Author Organization [facility] Address [address] [place] [address] Care Team Providers Name Role Phone Unavailable [...] you attend adventist or Patient refused 2021 pentecostalism services? Do [...] or slept in a intermediate (including now)? Sex Assigned at Date Recorded [...] 4:56 PM MST Narrative 07/06/2008 5:07 PM [facility] Indications: ?PNE PATHWAY CALL [phone] IF POS. ??TECHNOTE: NIPPLE PIERCINGS LUNG ARTIFACT. [...] from the original. Indications: PNE PATHWAY CALL [phone] IF P OS. TECHNOTE: NIPPLE PIERCINGS LUNG [...]
--- OUTSIDE RECORDS SUMMARY | 2022-08-01 07:51 | XMS_ITS | Encounter Summary ---
:1965 Author Organization [facility] Address [address] [place] [address] Care Team Providers Name Role Phone Unavailable [...] you attend quaker or Patient refused 2021 protestant services? Do [...]
--- OUTSIDE RECORDS SUMMARY | 2022-08-01 07:51 | XMS_ITS | Encounter Summary ---
:1965 Author Organization [facility] Address [address] [place] [address] Care Team Providers Name Role Phone Unavailable [...] you attend confucianism or Patient refused 2021 latter-day services? Do [...] and Lateral 2 Views (08/18/2008 9:44 PM [facility]) Anatomical Region Laterality Modality Chest, Thoracic RST LOS N/A Radiographic Xi ging Specimen (Source) Anatomical Collection Method Collection Time Re ceived Time Location / / Volume Laterality 08/18/2008 9:44 PM MST Narrative 08/18/2008 9:57 PM [facility] Indications: ?PNE PATHWAY CALL [phone] IF POS - pt unable to remove [...] from the original. Indications: PNE PATHWAY CALL [phone] IF P OS - pt unable to [...]
--- OUTSIDE RECORDS SUMMARY | 2022-08-01 07:51 | XMS_ITS | Encounter Summary ---
:1965 Author Organization [facility] Address [address] [place] [address] Care Team Providers Name Role Phone Unavailable [...] you attend scientology or Patient refused 2021 anabaptism services? Do [...]
--- OUTSIDE RECORDS SUMMARY | 2022-08-01 07:51 | XMS_ITS | Encounter Summary ---
:1965 Author Organization [facility] Address [address] [place] [address] Care Team Providers Name Role Phone Unavailable Primary Care Provider Unavailable Encounter Details Date Type Department Care Team Description 01/15/2010 - Hospital Encounter HX ARZ NO MAPPING Leoindes Du, 01/16/2010 [address] [place] [address] Social History Tobacco Use Types [...] you attend sabianism or Patient refused 2021 restorationist services? Do [...] encounter Results [place] Esophagram (01/15/2010 9:36 PM [facility]) Anatomical Region Laterality Modality Gastro Intestinal, Abdominal RST LOS N/A Rad iographic Imaging Specimen (Source) Anatomical Collection Method Collection Time Re ceived Time Location / / Volume Laterality 01/15/2010 9:36 PM [facility] Narrative 01/15/2010 9:43 PM [facility] Indications: ?STATUS POST GASTRIC BYPASS ORIGINAL REPORT [...]
--- OUTSIDE RECORDS SUMMARY | 2022-08-01 07:51 | XMS_ITS | Encounter Summary ---
:1965 Author Organization [facility] Address [address] [place] [address] Care Team Providers Name Role Phone Unavailable [...] you attend uatsdin or Patient refused 2021 lutheran services? Do [...]
--- OUTSIDE RECORDS SUMMARY | 2022-08-01 07:51 | XMS_ITS | Encounter Summary ---
:1965 Author Organization [facility] Address [address] [place] [address] Care Team Providers Name Role Phone Unavailable [...] you attend restorationist or Patient refused 2021 religion services? Do [...] 2:53 PM MST Narrative 08/16/2008 3:27 PM [facility] Indications: ?CHEST PAIN tech: Pt stated [...] Lead with rhythm strip (08/16/2008 12:00 AM [facility]) Specimen (Source) Anatomical Location Collection Method / Collectio n Time Received Time / Laterality Volume 08/16/2008 Historical Provider ECG ORDERABLES Performing Organization Address City/State/ZIP Code Phon e Number [facility] [place] [facility] documented in this encounter Visit Diagnoses Not on filedocumented in this encounter
--- OUTSIDE RECORDS SUMMARY | 2022-08-01 07:51 | XMS_ITS | Encounter Summary ---
:1965 Author Organization [facility] Address [address] [place] [address] Care Team Providers Name Role Phone Unavailable Primary Care Provider Unavailable Reason for Visit Reason Onset Date Comments Prior Medical Records/Sinus CT 03/02/2019 Encounter Details Date Type Department Care Team Description 03/02/2019 Clinical Department of Honorio, Prior Medical Communication Otorhinolaryngology in [place] rds/Sinus CT [place], [place] Lilian [address] [facility] [address] [place] [phone] [place] [address] Social History Tobacco Use Types Packs/Day Years [...] or slept in a fdc (including now)? Sex Assigned at Date Recorded Female 03/01/2019 10:12 AM CDT documented as of this encounter Miscellaneous Notes Telephone Encounter - Coby Sol - 03/02/2019 8:13 AM CDT Per [place] (Dr. Olmedo), [facility] (Dr. Mckeon) ([phone]) was contacted. The previousmedical records have been received and sent for scanning into pt's chart. [facility] will be pushed. Coby documented in this encounter Plan of Treatment Not on filedocumented as of this encounter Visit Diagnoses Not on filedocumented in this encounter
--- OUTSIDE RECORDS SUMMARY | 2022-08-01 07:51 | XMS_ITS | Encounter Summary ---
:1965 Author Organization [facility] Address [address] [place] [address] Care Team Providers Name Role Phone Unavailable Primary Care Provider Unavailable Encounter Details Date Type Department Care Team Description 06/21/2017 Hospital Encounter HX [facility] PMTR Hernesto Watson M.D. [address] [facility], [address] [place] [address] (Wo rk) Social History Tobacco Use Types [...] you attend rastafarian or Patient refused 2021 confucianist services? Do [...] - 06/21/2017 12:00 AM CDT 1EMG [facility]G ADDRESSING MACHINE OPERATOR Sergio Watson MD ([phone]) REFERRED BY Dr. Romero. REFERRED FOR Ms. [...] WATSON MD On: 06/21/2017 03:10 PM Source: [facility] MHSDOLBEYNONRADSYS Document Id: [id number] documented in this encounter Miscellaneous Notes Miscellaneous - Sergio Watson, M.D. - 06/21/2017 2:19 PM CDT Ambulatory Discharge Medication List [address] [id number] Visit Information Name: KAYLIN BENDER [facility] Number: [id number] Current Date: 06/21/2017 14:19:38 [...] MD Signed On:21-JUN-2017 14:19:21 Additional Information: Source: [facility] POWERCHART Document Id: [id number] Reema - Sergio Watson M.D. - 06/21/2017 2:19 PM CDT Ambulatory Patient Summary [address] [id number] Visit Information Name: KAYLIN BENDER [facility] Number: [id number] Current Date: 06/21/2017 14:19:38 [...] if you dont have one. Go to [email or web address] and click on Create Your Account. Then, follow the directions to complete the online form. Youll be asked for your [facility] number which you can find at the top of this document. Your Goals/Additional instructions: Source: [facility] POWERCHART Document Id: [id number] Miscellaneous - Ayla Mcmanus, L.P.N. - 06/21/2017 1:25 PM CDT Adult Body Piercer Intake/History Adult Body Piercer Intake/History Entered On: 06/21/2017 13:26 CDT Performed On: 06/21/2017 13:25 CDT by MARIETTA, AYLA J RESPIRATORY THERAPY DIRECTOR Intake Systolic Blood Pressure : 124 mmHg Diastolic Blood Pressure : 62 mmHg NIBP Mean : 83 mmHg BP Location : Left upper extremity Blood Pressure Cuff Size : Regular Actual Weight : 70.55 kg(Converted to: 155 lb 9 oz) Dosing Weight Clinic : 70.55 kg AYLA MCMANUS LPN - 06/21/2017 13:25 CDT General Info Information Given By : Patient Languages : Samoan Is Patient Female and 13-50 no hysterectomy [...] MCMANUS LPN - 06/21/2017 13:25 CDT Source: [facility] POWERCHART Document Id: [id number] CDT!24 documented in this encounter Plan of Treatment Not on filedocumented as of this encounter Visit Diagnoses Not on filedocumented in this encounter
--- OUTSIDE RECORDS SUMMARY | 2022-08-01 07:51 | XMS_ITS | Encounter Summary ---
:1965 Author Organization [facility] Address [address] [place] [address] Care Team Providers Name Role Phone Elsewhere, Pcp Primary Care Provider Unavailable Reason for Referral Outpatient (Routine) - Closed Specialty Diagnoses / Procedures Referred By Contact Refer red To Contact Otorhinolaryngology Diagnoses Sinus Nose Disorder Sinusitis Chronic Chris Mckeon [place] M.D. [address] [place] [address] Referral ID Status Reason Start Date Expiration Date Visits Requ ested Visits Authorized [id number] Closed 01/10/2019 01/10/2020 1 1 T BAKER Encounter Details Date Type Department Care Team Description 01/10/2019 [facility] Mike, Sinu s Nose Disorder (Primary Dx); AND CLINICS Chris Celaya M.D. Sinusitis Chronic [address] [facility] [address] [place] [address] [place], [place] [phone] [id number] Social History Tobacco Use Types Packs/Day Years [...] you attend episcopal or Patient refused 2021 episcopalian services? Do [...] COVID19 Pending 01/31/2021 01/31/2021 01/31/2021 10:53 PM NIGHT BAKER COVID19 Pending 02/10/2021 02/11/2021 02/11/2021 1:09 AM CDT COVID19 Pending 12/29/2021 12/29/2021 12/29/2021 4:20 PM NIGHT BAKER COVID19 Pending 02/25/2022 02/25/2022 02/25/2022 3:59 PM CDT COVID19 Pending 05/17/2022 05/17/2022 05/17/2022 2:34 PM CDT COVID19 Pending 06/15/2022 06/15/2022 06/15/2022 8:24 PM CDT documented as of this encounter Care Teams Drop Wire Builder Relationship Specialty Start Date End Date Elsewhere, Pcp PCP - General Family Medicine 12/25/21 documented as of this encounter
--- OUTSIDE RECORDS SUMMARY | 2022-08-01 07:51 | XMS_ITS | Encounter Summary ---
:1965 Author Organization [facility] Address [address] [place] [address] Care Team Providers Name Role Phone Unavailable [...] you attend zoroastrian or Patient refused 2021 gnosticism services? Do [...]
--- OUTSIDE RECORDS SUMMARY | 2022-08-01 07:51 | XMS_ITS | Encounter Summary ---
:1965 Author Organization [facility] Address [address] [place] [address] Care Team Providers Name Role Phone Unavailable [...] you attend denominational or Patient refused 2021 quaker services? Do [...] 9:46 PM MST Indications: ?CP PATHWAY CALL [phone] IF POS ?? tech: pt. not and [...] from the original. Indications: CP PATHWAY CALL [phone] IF PO S tech: pt. not and [...] Feb 03 2009 9:45PM. Electronically signed by: oJnny Reyes 03-Feb-2009 21:46 He [facility] PROCE DURES ECG 12 Lead with rhythm strip (02/03/2009 12:00 AM [facility]) Specimen (Source) Anatomical Location Collection Method / Collectio n Time Received Time / Laterality Volume 02/03/2009 Historical Provider ECG ORDERABLES Performing Organization Address City/State/ZIP Code Phon e Number HX [place] CONVERSION documented in this encounter Visit Diagnoses Not on filedocumented in this encounter
--- OUTSIDE RECORDS SUMMARY | 2022-08-01 07:51 | XMS_ITS | Encounter Summary ---
:1965 Author Organization [facility] Address [address] [place] [address] Care Team Providers Name Role Phone Unavailable [...] you attend nondenominational or Patient refused 2021 mosque services? Do [...] Address City/State/ZIP Code Phon e Number HX [place] CONVERSION documented in this encounter Visit Diagnoses Not on filedocumented in this encounter
--- OUTSIDE RECORDS SUMMARY | 2022-08-01 07:52 | XMS_ITS | Continuity of Care Document ---
:1965 Author Organization [facility] Address [address] [place] [address] Care Team Providers Name Role Phone Mor Singleton CRNA Unavailable Unavailable Procedures Procedure Date ANESTH, HEAD/NECK/PTRUNK ANESTH PERC IMG TX SP PROC ANESTH PERC IMG TX SP PROC Advance Directives Directive Yes / No Effective Date File Name No Information Encounters Encounter Practice Location Reason(s) Diagnoses Date Provider Provide rs Description For Visit Copied on Encounter [facility] No Areli Referring [facility] Mor. Provider: Lois CISNEROS Surgery [address] [place] [address], [facility] [address] [place] [id number], [facility], [place], [place], [place], [place], [id number], [id number] [place]. . tel:[phone] tel:[phone] [facility] No [facility] Referring Anesthesia [facility] -2019 Nilay. Provider: Lois CISNEROS Surgery [address] [facility], [facility] [place], [address] [id number], [id number], [facility]. [facility] tel:[phone], [place], [id number] [phone] . tel:[phone] [facility] No [facility] Referring Anesthesia [facility] -2019 Nilay. Provider: PA, [address], [place], Endy J, [place], [place], [place], [address] [facility] [id number], [id number], John, [facility]. Denisa tel:[phone] s, [place], [phone] . tel:[phone] Family History Family Member Type Diagnosis Age At Onset No Information Payers Payer name Insurance type Covered green party ID Authorization(s ) Medicare MB [id number] [employer] [facility] [id number] Social History Type Description Quantity Date Captured [...]
--- OUTSIDE RECORDS SUMMARY | 2022-08-01 07:52 | XMS_ITS | Continuity of Care Document ---
:1965 Author Organization [facility] Address [address] [place] [address] Phone Care Team Providers Name Role Phone [...] rs Description For Visit Copied on Encounter [facility] [place] Referring [facility] Information -2007 Su. Provider : Arthur [address] [place], [address], [address] [facility], [place], [place], [place], [id number], [place], [id number], . [address]. tel:[phone] tel:[phone] tel:[phone] [facility] Blurred No Adalberto Referring [facility] Vision Information -2007 Deep. Provider: Arthur, (chief [address]) [address] [facility], [address], [address], [place], [place], [place], [place], [place], [place], [id number], [place], [id number], . [address]. tel:[phone] tel:[phone] tel:[phone] Family History Family Member Type Diagnosis Age [...]
--- OUTSIDE RECORDS SUMMARY | 2022-08-01 07:52 | XMS_ITS | Continuity of Care Document ---
:1965 Author Organization [facility] Address [address] [address] [place] [address] Phone Care Team Providers Name Role Phone Nilay Perry MD Unavailable Unavailable Advance Directives Directive Yes / No Effective Date File Name No Information Encounters Encounter Practice Location Reason(s) Diagnoses Date Provider Provide rs Description For Visit Copied on Encounter [facility] No Orlando FAULKNER Referring [facility] Nil[place]. Provider: [place], Endoscopy [address] [facility] [address], Fredis DILLON MD, [address] [facility] [address], [place], [place], [facility] [address], [id number], [place], [place], [facility] [id number], [place], [address]. tel:[phone] . tel:[phone] tel:[phone] Family History Family Member Type Diagnosis Age At Onset No Information Payers Payer name Insurance type Covered alliance party ID Authorization(s ) [place] Medical [employer] [id number] Social History Type Description Quantity Date Captured [...]
--- OUTSIDE RECORDS SUMMARY | 2022-08-01 07:52 | XMS_ITS | Continuity of Care Document ---
:1965 Author Organization [facility] Address [address] [place] [address] Care Team Providers Name Role Phone [facility] Unavailable Unavailable Procedures Procedure Date IMPLANT [...] Visit Copied on Encounter [facility] Provider: Surgery Surgery Surgery [facility]. David, [address], [place], [place], [place] [id number], [place], [place], , [place] [id number], [address]. [place]. tel: [phone] [facility] No Twin Referring [address] Provider: Surgery Surgery Surgery [facility]. David, [address], [place], [place] [id number], [place], [place], , [place] [id number], [address]. [place]. tel: tel:[phone] [facility] No Twin [address] Provider: Surgery Surgery Surgery [facility]. Jose [address] [facility] [address], [facility], [place], [place] , [place], [id number], [place], [address]. [place] [id number], tel: [phone] tel:[phone] Family History Family Member Type Diagnosis Age At Onset No Information Payers Payer name Insurance type Covered democrat ID Authorization(s ) Medicare [id number] [employer] [facility] [id number] Social History Type Description Quantity Date Captured [...]
--- OUTSIDE RECORDS SUMMARY | 2022-08-01 07:53 | XMS_ITS | Continuity of Care Document ---
:1965 Author Organization [facility] Address [address] [place] [address] Phone Care Team Providers Name Role Phone [...] GENERATOR FLUOROGUIDE FOR SPINE INJECTION SCS PreSurgery Enigma Production OFFICE/OUTPATIENT VISIT, EST No Charge For [...] For Visit Copied on Encounter OFFICE VISIT, [facility] Back Pain Anxiety disorder, Ka ngas [facility] (chief unspecifiedChronic 0-202 [place]. TELEMEDICINE Pain Enigma complaint) migraine without 2 [address] [facility], aura, intractable, John, [address] without status [place], migrainosusOsteoar is, [place], Caterina, thritisPain in [id number] [place], left shoulderPain , [place]. [id number] in left hipPain in tel:+ , [place] right hipPain in [id number] tel:+ left kneePain in [id number] right kneeOther spondylosis, cervical regionOther spondylosis, lumbar regionRadiculopath y, lumbar regionPain in thoracic spineFibromyalgiaP ostlaminectomy syndrome, not elsewhere classifiedLong term (current) use of opiate analgesic OFFICE VISIT, [facility] Back Pain OsteoarthritisChro K [facility] (chief saul migraine [place]. Provide r: TELEMEDICINE Pain Caterina complaint) without aura, 2 [address] [facility], intractable, John, Will J, [address] without status [place] [address] John, migrainosusAnxiety is, [place], John, Caterina, disorder, [id number] [place], unspecifiedPain in , [place]. s, [place] , [id number] left shoulderPain tel: [phone] , [place] in left hipPain in [id number] . tel: right hipPain in tel:2 [phone] left kneePain in 880501 5 right kneeOther spondylosis, cervical regionOther spondylosis, lumbar regionRadiculopath y, lumbar regionPain in thoracic spinePostlaminecto my syndrome, not elsewhere classifiedFibromya lgiaLong term (current) use of opiate analgesic OFFICE VISIT, [facility] Back Pain Pain in left [facility] (chief shoulderAnxiety [place]. TELEMEDICINE Pain Enigma complaint) disorder, 2 [address] [facility], unspecifiedChronic John, [address] migraine without [place] John, aura, intractable, is, [place], Caterina, without status [id number] [place], migrainosusOsteoar , [place]. [id number] thritisPain in tel: , US right hipPain in [id number] tel: left hipPain in 17064032 left kneePain in right kneeOther spondylosis, cervical regionOther spondylosis, lumbar regionRadiculopath y, lumbar regionPain in thoracic spinePostlaminecto my syndrome, not elsewhere classifiedFibromya lgiaLong term (current) use of opiate analgesic OFFICE VISIT, [facility] Back Pain Pain in left [facility] (chief hipAnxiety [place]. TELEMEDICINE Pain Caterina complaint) disorder, 2 [address] [facility], unspecifiedChronic John, [address] migraine without [place] John, aura, intractable, is, [place], Enigma, without status [id number] [place], migrainosusOsteoar , [place]. [id number] thritisPain in tel: , US left shoulderPain [id number] tel: in right hipPain 13977765 in left kneePain in right kneeOther spondylosis, cervical regionOther spondylosis, lumbar regionRadiculopath y, lumbar regionPain in thoracic spineFibromyalgiaP ostlaminectomy syndrome, not elsewhere classifiedLong term (current) use of opiate analgesic [facility] No Information [facility] [place]. Pain Caterina 2 [address] [facility], John, [address] [place], is, [place], Caterina, [id number] [place], , [place]. [id number] tel: , [place] [id number] tel: [phone] OFFICE/OUTPAT [facility] Back Pain Anxiety disorder, Ka [facility] Referring IENT VISIT, [facility] (chief unspecifiedChronic [place] . Provider: EST Pain Enigma complaint) migraine without 2 [address] [facility], aura, intractable, John, Will J, [address] without status [place] [address] John, migrainosusOsteoar is, [place], John, Caterina, thritisPain in [id number] [place], left shoulderPain , [place]. s, [place], 029417375 in left hipPain in tel: [phone] , US right hipPain in 79849626 . tel: left kneePain in tel:2 [phone] right kneeOther [id number] spondylosis, cervical regionOther spondylosis, lumbar regionRadiculopath y, lumbar regionPain in thoracic spineFibromyalgiaP ostlaminectomy syndrome, not elsewhere classifiedLong term (current) use of opiate analgesic OFFICE VISIT, [facility] Back [facility] Chronic migraine Jan- Jens gas [facility] (chief without aura, [place]. TELEMEDICINE Pain Enigma complaint) intractable, 2 [address] [facility], without status John, [address] migrainosusAnxiety [place] John, disorder, is, [place], Enigma, unspecifiedOsteoar [id number] [place], thritisPain in , US. [id number] left shoulderPain tel: , [place] in right hipPain [id number] tel: in left hipPain in 33129293 right kneePain in left kneeOther spondylosis, cervical regionOther spondylosis, lumbar regionRadiculopath y, lumbar regionPain in thoracic spineFibromyalgiaP ostlaminectomy syndrome, not elsewhere classifiedLong term (current) use of opiate analgesic [facility] No Information [facility] [place]. Provider: Pain Enigma 2 [address] [facility], John Will J, [address] [place] [address] John, is, [place], John, Enigma, [id number] [place], , [place]. s, [place], [id number] tel: [phone] , [place] [id number] . tel: tel: [phone] OFFICE VISIT, [facility] Back Pain Radiculopathy, [facility] (chief lumbar [place]. TELEMEDICINE Pain Enigma complaint) regionPostlaminect 2 [address] [facility], marquis syndrome, not John, [address] elsewhere [place] John, classifiedPain in is, [place], Caterina, left hipAnxiety [id number] MN, disorder, , US. [id number] unspecifiedPain in tel: , US thoracic [id number] tel: spineOsteoarthriti [phone] sChronic migraine without aura, intractable, without status migrainosusPain in right hipPain in left shoulderPain in right kneePain in left kneeFibromyalgiaOt her spondylosis, lumbar regionOther spondylosis, cervical regionLong term (current) use of opiate analgesicEncounter for therapeutic drug level monitoring OFFICE VISIT, [facility] Back Pain Radiculopathy, [facility] (chief lumbar [place]. Provider: TELEMEDICINE Pain Caterina complaint) regionPostlaminect 2 [address] [facility], marquis syndrome, not John, Will J , [address] elsewhere [place] [address] John classifiedPain in is, [place], John, Enigma, left hipAnxiety [id number] Augusta fischer [place], disorder, , [place]. s, [place], [id number] unspecifiedPain in tel: [phone] , US thoracic [id number] . tel: spineOsteoarthriti tel : [phone] sChronic migraine 06892 45 without aura, intractable, without status migrainosusPain in right hipPain in left shoulderPain in right kneePain in left kneeFibromyalgiaOt her spondylosis, lumbar regionOther spondylosis, cervical regionLong term (current) use of opiate analgesic OFFICE VISIT, [facility] Back [facility] Radiculopathy, [facility] Referring [facility] (chief lumbar [place]. Provider: TELEMEDICINE Pain Caterina complaint) regionPostlaminect 2 [address] [facility], marquis syndrome, not Endy Lopez J , [address] elsewhere [place] [address] John classifiedPain in is, [place], John, Enigma, left hipAnxiety [id number] Augusta fischer [place], disorder, , [place]. s, [place], 280093846 unspecifiedPain in tel: [phone] , [place] thoracic [id number] . tel: spineOsteoarthriti tel : [phone] sChronic migraine 61665 45 without aura, intractable, without status migrainosusPain in right hipPain in left shoulderPain in right kneePain in left kneeFibromyalgiaOt her spondylosis, lumbar regionLong term (current) use of opiate analgesicOther spondylosis, cervical region OFFICE VISIT, [facility] Back Pain Radiculopathy, [facility] (chief lumbar [place]. TELEMEDICINE Pain Caterina complaint) regionPostlaminect 1 [address] [facility], marquis syndrome, not John, [address] elsewhere [place] John classifiedPain in is, [place], Enigma, left hipAnxiety [id number] [place], disorder, , [place]. 477873105 unspecifiedPain in tel: , [place] thoracic 05722858 tel: spineOsteoarthriti [phone] sChronic migraine without aura, intractable, without status migrainosusPain in right hipPain in left shoulderPain in right kneePain in left kneeFibromyalgiaOt her spondylosis, lumbar regionLong term (current) use of opiate analgesicOther spondylosis, cervical region OFFICE/OUTPAT [facility] Other spondylosis, shlomo Referring IENT VISIT, [facility] (chief cervical [place]. Provide r: EST Pain Caterina complaint) regionRadiculopath 1 [address] [facility], y, lumbar John, Will J, [address] regionPostlaminect [place] [address] John, marquis syndrome, not is, [place], John, Caterina, elsewhere [id number] [place], classifiedPain in , [place]. s, [place], 866521996 left hipAnxiety tel: [phone] , [place] disorder, 93307643 . tel: unspecifiedPain in tel :2 [phone] thoracic 8627206 spineOsteoarthriti sChronic migraine without aura, intractable, without status migrainosusPain in right hipPain in left shoulderPain in right kneePain in left kneeFibromyalgiaOt her spondylosis, lumbar regionLong term (current) use of opiate analgesic OFFICE VISIT, [facility] Other spondylosis, anglucrecia EST [facility] (chief cervical [place]. TELEMEDICINE Pain Caterina complaint) regionRadiculopath 1 [address] [facility], y, lumbar John, [address] regionPostlaminect [place] John, marquis syndrome, not is, [place], Enigma, elsewhere [id number] MN, classifiedPain in , US. 434044894 left hipAnxiety tel: , [place] disorder, 27790643 tel: unspecifiedPain in 39131467 thoracic spineOsteoarthriti sChronic migraine without aura, intractable, without status migrainosusPain in right hipPain in left shoulderPain in right kneePain in left kneeFibromyalgiaOt her spondylosis, lumbar regionLong term (current) use of opiate analgesic OFFICE VISIT, [facility] Back [facility] Other spondylosis, Sep- K shlomo Referring [facility] (chief cervical [place]. Provider: TELEMEDICINE Pain Enigma complaint) regionRadiculopath 1 [address] [facility], y, lumbar John, Will J, [address] regionPostlaminect [place] [address] John, marquis syndrome, not is, [place], John, Caterina, elsewhere [id number] [place], classifiedPain in , [place]. s, MN, 161803087 left hipAnxiety tel: [phone] , [place] disorder, 33102269 . tel: unspecifiedPain in tel : [phone] thoracic 1496893 spineOsteoarthriti sChronic migraine without aura, intractable, without status migrainosusPain in right hipPain in left shoulderPain in right kneePain in left kneeFibromyalgiaOt her spondylosis, lumbar regionLong term (current) use of opiate analgesic [facility] Encounter for Mario Referr ing [facility] therapeutic drug [place]. Pro vider: Pain Enigma level 1 [address] [facility], monitoringLong John, Will J, [address] term (current) use [place] [address] John, of opiate is, [place], John, Enigma, analgesic [id number] [place], , [place]. s, [place], 831582368 tel: [phone] , [place] 70542893 . tel: tel: [phone] OFFICE/OUTPAT [facility] Other spondylosis, Aug-0 K shlomo Referring IENT VISIT, [facility] (chief lumbar [place]. Provider : EST Pain Enigma complaint) regionFibromyalgia 1 [address] [facility], Pain in left John, Will J, [address] kneePain in right [place] [address] John, kneePain in left is, [place], John, Caterina, shoulderPain in 571970407 [place], right hipChronic , [place]. s, MN, 591980772 migraine without tel:+ [phone] , [place] aura, intractable, 09296879 . tel: without status tel:+ [phone] migrainosusOsteoar 8412 345 thritisPain in thoracic spineAnxiety disorder, unspecifiedPain in left hipPostlaminectomy syndrome, not elsewhere classifiedRadiculo shane, lumbar regionOther spondylosis, cervical regionLong term (current) use of opiate analgesicEncounter for therapeutic drug level monitoring OFFICE VISIT, [facility] Other spondylosis, [facility] Referring [facility] (chief lumbar [facility]. Provider: TELEMEDICINE Pain Caterina complaint) regionFibromyalgia 1 [address] [facility], Pain in left John, Will J, [address] kneePain in right [place] 72 [address] John, kneePain in left is, [place], John, Enigma, shoulderPain in [id number] Augusta fischer [place], right hipChronic , [place]. s, MN, 407813776 migraine without tel:+ [phone] , [place] aura, intractable, 07170982 . tel: without status tel: [phone] migrainosusOsteoar 8412 345 thritisPain in thoracic spineAnxiety disorder, unspecifiedPain in left hipPostlaminectomy syndrome, not elsewhere classifiedRadiculo shane, lumbar regionOther spondylosis, cervical regionLong term (current) use of opiate analgesic OFFICE VISIT, [facility] Other spondylosis, Kanu0 K [facility] Referring [facility] (chief lumbar [facility]. Provider: TELEMEDICINE Pain Enigma complaint) regionFibromyalgia 1 [facility] [facility], Pain in left John, Will J, [address] kneePain in right [place] [address] John, kneePain in left is, [place], John, Caterina, shoulderPain in [id number] [place], right hipChronic , [place]. s, MN, 408180058 migraine without tel:+ [phone] , [place] aura, intractable, 33289282 . tel: without status tel: [phone] migrainosusOsteoar 8412 345 thritisPain in thoracic spineAnxiety disorder, unspecifiedPain in left hipPostlaminectomy syndrome, not elsewhere classifiedRadiculo shane, lumbar regionOther spondylosis, cervical regionLong term (current) use of opiate analgesic OFFICE VISIT, [facility] Other spondylosis, [facility] Referring [facility] (chief lumbar 5-202 [place]. Provider: TELEMEDICINE Pain Caterina complaint) regionFibromyalgia 1 [address] [facility], Pain in left John, Will J, [address] kneePain in right [place] [address] John, kneePain in left is, [place], John, Caterina, shoulderPain in 137541338 [place], right hipChronic , [place]. s, MN, 757705057 migraine without tel: [phone] , [place] aura, intractable, 74825988 . tel: without status tel: [phone] migrainosusOsteoar 8412 345 thritisPain in thoracic spineAnxiety disorder, unspecifiedPain in left hipPostlaminectomy syndrome, not elsewhere classifiedRadiculo shane, lumbar regionOther spondylosis, cervical regionLong term (current) use of opiate analgesic [facility] Other spondylosis, March- Mario Referring [facility] (chief lumbar 4-202 [place]. Provider: Pain Caterina complaint) regionFibromyalgia 1 [address] [facility], Pain in left John, Will J, [address] kneePain in right [place] [address] John, kneeChronic is, [place], John, Enigma, migraine without [id number] [place], aura, intractable, , [place]. s, [place] , 960629492 without status tel: [phone] , [place] migrainosusPain in 96061062 . tel: right hipPain in tel: [phone] left shoulderPain 53834 45 in right shoulderOsteoarthr itisPain in thoracic spineAnxiety disorder, unspecifiedPain in left hipPostlaminectomy syndrome, not elsewhere classifiedRadiculo shane, lumbar regionOther spondylosis, cervical regionLong term (current) use of opiate analgesic OFFICE VISIT, [facility] Other spondylosis, Mar-2 K angas Referring [facility] (chief lumbar [place]. Provider: TELEMEDICINE Pain Caterina complaint) regionFibromyalgia 1 [address] [facility], Pain in left John, Will J, [address] kneePain in right [place] [address] John, kneeChronic is, [place], John, Caterina, migraine without [id number] [place], aura, intractable, , [place]. s, [place] , 728017535 without status tel: [phone] , [place] migrainosusPain in 08379827 . tel: right hipPain in tel:2 [phone] left shoulderPain 16703 45 in right shoulderOsteoarthr itisPain in thoracic spineAnxiety disorder, unspecifiedPain in left hipPostlaminectomy syndrome, not elsewhere classifiedRadiculo shane, lumbar regionOther spondylosis, cervical regionLong term (current) use of opiate analgesic OFFICE VISIT, [facility] Pain in left Fe- Mario Referring [facility] (chief hipPostlaminectomy [place]. P rovider: TELEMEDICINE Pain Enigma complaint) syndrome, not 1 7[address] [facility], elsewhere John, Endy J, [address] classifiedRadiculo [place] [address] John, shane, lumbar is, [place], John, Enigma, regionOther [id number] [place], spondylosis, , [place]. s, [place], 235322858 cervical tel: [phone] , [place] regionOther 14453502 . tel: spondylosis, tel: 2 [phone] lumbar 2799030 regionFibromyalgia Pain in left kneePain in right kneeChronic migraine without aura, intractable, without status migrainosusPain in right hipPain in left shoulderPain in right shoulderOsteoarthr itisPain in thoracic spineAnxiety disorder, unspecifiedLong term (current) use of opiate analgesic OFFICE VISIT, [facility] Pain in left Mario Referring [facility] (chief hipPostlaminectomy [place]. P rovider: TELEMEDICINE Pain Enigma complaint) syndrome, not 1 [address] [facility], elsewhere Endy Lopez J, [address] classifiedRadiculo [place] [address] John, shane, lumbar is, [place], John, Caterina, regionOther [id number] [place], spondylosis, , [place]. s, [place], 488279562 cervical tel:+ [phone] , [place] regionOther [id number] . tel: spondylosis, tel: 2 [phone] lumbar 0125840 regionFibromyalgia Pain in left kneePain in right kneeChronic migraine without aura, intractable, without status migrainosusPain in right hipPain in left shoulderPain in right shoulderOsteoarthr itisPain in thoracic spineAnxiety disorder, unspecifiedLong term (current) use of opiate analgesic OFFICE VISIT, [facility] Pain in left Mario Referring [facility] (chief hipPostlaminectomy [place]. P rovider: TELEMEDICINE Pain Caterina complaint) syndrome, not 0 [address] [facility], elsewhere Endy Lopez J, [address] classifiedRadiculo [facility] [address] John, shane, lumbar is, [place], John, Caterina, regionOther [id number] [place], spondylosis, , [place]. s, [place], 492068544 cervical tel: [phone] , [place] regionOther 01178649 . tel: spondylosis, tel: 2 [phone] lumbar 8650466 regionFibromyalgia Pain in left kneePain in right kneeChronic migraine without aura, intractable, without status migrainosusPain in right hipPain in left shoulderPain in right shoulderOsteoarthr itisPain in thoracic spineAnxiety disorder, unspecifiedLong term (current) use of opiate analgesic OFFICE VISIT, [facility] Postlaminectomy [facility] Referring [facility] (chief syndrome, not [place]. Provid er: TELEMEDICINE Pain Enigma complaint) elsewhere 0 7235 [facility], classifiedRadiculo John Will J, [address] shane, lumbar [place] 7[address] [facility] John, regionOther is, [place], John, Caterina, spondylosis, [id number] [place], cervical , [place]. s, MN, 554949471 regionOther tel:+ [phone] , [place] spondylosis, 31617904 . tel: lumbar tel:+ [phone] regionFibromyalgia 8412 345 Pain in left kneePain in right kneeChronic migraine without aura, intractable, without status migrainosusPain in left hipPain in right hipPain in left shoulderPain in right shoulderOsteoarthr itisPain in thoracic spineAnxiety disorder, unspecifiedLong term (current) use of opiate analgesic OFFICE/OUTPAT [facility] Postlaminectomy Oct- Gonzalez as Referring IENT VISIT, [facility] (chief syndrome, not [place]. Pr ovider: EST Pain Enigma complaint) elsewhere 0 7235 [facility], classifiedRadiculo Endy Lopez J, [address] shane, lumbar [place] 7235 [facility] John, regionOther is, [place], John, Enigma, spondylosis, [id number] [place], cervical , [place]. s, [place], 696367183 regionOther tel:+ [phone] , [place] spondylosis, 84888188 . tel: lumbar tel: [phone] regionFibromyalgia 8412 345 Pain in left kneePain in right kneeChronic migraine without aura, intractable, without status migrainosusPain in left hipPain in right hipPain in left shoulderPain in right shoulderOsteoarthr itisPain in thoracic spineAnxiety disorder, unspecifiedLong term (current) use of opiate analgesicEncounter for therapeutic drug level monitoring OFFICE VISIT, [facility] Postlaminectomy Sep-2 Gonzalez as Referring EST [facility] (chief syndrome, not [place]. Provid er: TELEMEDICINE Pain Caterina complaint) elsewhere 0 7235 [facility], classifiedRadiculo John, Will J, [address] shane, lumbar [place] [address] John, regionOther is, [place], John, Caterina, spondylosis, [id number] [place], cervical , [place]. s, [place], 247159076 regionOther tel: [phone] , [place] spondylosis, 22246743 . tel: lumbar regionLong tel: [phone] term (current) use 8412 345 of opiate analgesicAnxiety disorder, unspecifiedFibromy algiaPain in left kneePain in right kneeChronic migraine without aura, intractable, without status migrainosusPain in left hipPain in right hipPain in left shoulderPain in right shoulderOsteoarthr itisPain in thoracic spine OFFICE VISIT, [facility] Postlaminectomy Yeimy en Referring [facility] (chief syndrome, not Venu. Provid er: TELEMEDICINE Pain [place] complaint) elsewhere 0 [address] [facility], [facility] [facility] [address] Jermaine l J, [address] shane, lumbar 11 Umair [address] John, regionOther 100, John, Caterina, spondylosis, [place], cervical e, MN, s, MN, 547973654 regionOther [id number] [phone] 48 , [place] spondylosis, , [place]. . tel: lumbar regionLong tel: te l:+ [phone] term (current) use [id number] of opiate analgesicAnxiety disorder, unspecified [facility] Postlaminectomy RN RN. Refe [facility] syndrome, not [address] Prov ider: Pain Caterina elsewhere 0 [facility], classified [place] Will J, [address] is, [place], [address] John, [id number] John, Enigma, , [place]. [place], tel: s, [place], [phone] [id number] , [place] . tel: tel: [phone] [facility] Postlaminectomy David Ref [facility] Surgery syndrome, not 4-202 Gi. Provider: Pain Center elsewhere 0 7235 [facility], classified JohnEndy J, [address] [place] [address] John, is, [place], Chandana Lopeza, [id number] [place], , [place]. s, [place], 699187349 tel: [phone] , [place] 86843564 . tel: tel:+2 [phone] OFFICE VISIT, [facility] Postlaminectomy Kanga s Referring [facility] (chief syndrome, not [place]. Provider: TELEMEDICINE Pain complaint) elsewhere 0 7235 [facility], classifiedRadiculo JohnEndy J, [address] shane, lumbar [place] [address] John, regionOther is, [place], John, Enigma, spondylosis, [id number] [place], cervical , [place]. s, MN, 968870444 regionOther tel: [phone] , [place] spondylosis, 44059508 . tel: lumbar regionLong tel: 2 [phone] term (current) use 8412 345 of opiate analgesicAnxiety disorder, unspecified [facility] Postlaminectomy Mario Refe [facility] syndrome, not [place]. Provid er: Pain Caterina elsewhere 0 7235 [facility], classified JohnEndy J, [address] [place] [address] John, is, [place], John Enigma, [id number] [place], , [place]. s, [place], 224988581 tel: [phone] , [place] [id number] . tel: tel:2 [phone] [facility] Hospital Postlaminectomy Kokayeff Ref [facility] Surgery syndrome, not Gi. Provider: Pain Center elsewhere 0 7235 [facility], classified Endy Lopez J, [address] [place] [address] [place], is, [place], John, Caterina, [id number] [place], , [place]. [place], [place], [address]607[address] tel: [phone] , [place] [id number] . tel: tel:[phone] OFFICE VISIT, [facility] Back Pain Postlaminectomy Michael s Referring [facility] (chief syndrome, not [place]. Provider: TELEMEDICINE Pain complaint) elsewhere 0 7235 [facility], classifiedRadiculo Endy Lopez J, 7235 [address] shane, lumbar [place] 7235 [facility] [place], regionLong term is, [place], [place], Caterina, (current) use of [id number] [place], opiate , [place]. [place], [place], 139870907 analgesicOther tel: [phone] , [place] spondylosis, [id number] . tel: cervical tel: [phone] regionOther [id number] spondylosis, lumbar region [facility] No Information [facility] [place]. Pain Enigma 0 7235 [facility], John, 7235 [facility] [place], is, [place], Enigma, [id number] [place], , [place]. [id number] tel: , [place] [id number] tel: [phone] OFFICE VISIT, [facility] Back Pain CervicalgiaPostlam K shlomo Referring [facility] (chief inectomy syndrome, [place]. P rovider: TELEMEDICINE Pain Enigma complaint) not elsewhere 0 7235 [facility], classifiedRadiculo Endy Lopez J, [address] shane, lumbar [place] 7235 [facility] [place], regionLong term is, [place], John, Caterina, (current) use of [id number] [place], opiate analgesic , [place]. [place], [place], 448001598 tel: [phone] , [place] [id number] . tel: tel:[phone] Psych Dx Eval [facility] Pain disorder with [facility] related Maikel Provider: Pain psychological 0 Peg. 7235 [facility], factorsBipolar Ohny Will J, 7235 Ohny disorder John, 7235 [facility] John, [place], Caterina, is, [place], [place], [id number] s, [place], [id number] , [place]. [address] , [place] tel: . tel: [phone] tel: [phone] OFFICE VISIT, [facility] Back Pain Postlaminectomy Apr-2 Michael s Referring [facility] (chief syndrome, not [place]. Provider: TELEMEDICINE Pain complaint) elsewhere 0 7235 [facility], classifiedLong John Endy Jorge, [address]235 [address] term (current) use [place] 7 235 [address] John, of opiate is, [place], John, Enigma, analgesicRadiculop [id number] [place], athy, lumbar , [place]. [place], [place], 006492439 regionCervicalgia tel: [phone] , [place] [id number] . tel: tel: [phone] [facility] No Information Jan- [facility] Peter. Pain Enigma 0 7235 [facility], John, [address] [place] John, is, [place], Caterina, [id number] [place], , [place]. [id number] tel: , [place] [id number] tel: [phone] OFFICE/OUTPAT [facility] Back Pain Postlaminectomy Jan- Gonzalez as Referring IENT VISIT, [facility] (chief syndrome, not [place]. Pr ovider: EST Pain Enigma complaint) elsewhere 0 7235 [facility], classifiedLong Endy Lopez, 7235 [address] term (current) use [place] 7 [address] John, of opiate is, [place], John, Caterina, analgesicCervicalg [id number] [place], iaRadiculopathy, , [place]. [place], [place], 294014405 lumbar region tel: [phone] , [place] [id number] . tel: tel:[phone] [facility] Postlaminectomy Mar- Garcia Refe rring [facility] Surgery syndrome, not Viry. Provider: Pain Center elsewhere 0 7235 [facility], classified John, Will J, [address] [place] [address] John, is, [place], Caterina Lopez, [id number] [place], , [place]. [place], MN, 777865767 tel:+ [phone] , [place] [id number] . tel: tel:2 [phone] OFFICE/OUTPAT [facility] Back Pain Postlaminectomy Gonzalez as Referring IENT VISIT, [facility] (chief syndrome, not 8 [place]. Pr ovider: EST Pain Enigma complaint) elsewhere 0 7235 [facility], classifiedCervical John, Will J, 7235 [address] giaRadiculopathy, [place] 72 35 [address] John, lumbar regionLong is, [place], Caterina Lopez, term (current) use [id number] [place], of opiate , [place]. [place], [place], 351280195 analgesicCarrier tel: [phone] , [place] of Methicillin [id number] . tel: susceptible tel:2 [phone] Staphylococcus 1776994 aureusCarrier of Methicillin resistant Staph aureusMethicillin resis staph infct causing diseases classd elsMelissacounter for therapeutic drug level monitoring [facility] Postlaminectomy [facility] syndrome, not [place]. Pain Caterina elsewhere 0 7235 [facility], classified John, [address] [place] John, is, [place], Caterina, [id number] [place], , [place]. 471441715 tel:+ , [place] [id number] tel: [phone] OFFICE/OUTPAT [facility] Back Pain Radiculopathy, Kanga s Referring IENT VISIT, [facility] (chief lumbar [place]. Provider : EST Pain Enigma complaint) regionPostlaminect 0 7235 [facility], marquis syndrome, not John, Will J , [address] elsewhere [place] 7235 [address] John, classifiedCervical is, [place], Caterina Lopez, giaLong term [id number] [place], (current) use of , [place]. [place], [place], 022967533 opiate analgesic tel: [phone] , [place] [id number] . tel: tel:[phone] OFFICE/OUTPAT [facility] Back Pain Radiculopathy, Kanga s Referring IENT VISIT, [facility] (chief lumbar 7-201 [place]. Provider : EST Pain Caterina complaint) regionCervicalgiaL 9 35 [facility], beryl term (current) Endy Lopez J, [address] use of opiate [place] 7235 O hms John, analgesicPostlamin is, [place], John, Enigma, ectomy syndrome, [id number] [place], not elsewhere , [place]. [place], MN, 498866461 classified tel: [phone] , [place] [id number] . tel: tel: [phone] OFFICE/OUTPAT [facility] Back Pain Chronic pain Referring IENT VISIT, [facility] (chief syndromePostlamine 6-201 [place] . Provider: EST Pain Caterina complaint) ctomy syndrome, 9 35 [facility], not elsewhere Endy Lopez J, [address] classifiedRadiculo [place] 7 235 [address] John, shane, lumbar is, [place], John, Caterina, regionCervicalgiaL [id number] [place], beryl term (current) , [place]. [place], [place] , 512934661 use of opiate tel: [phone] , [place] analgesic [id number] . 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 Provider: EST Pain Caterina complaint) opiate 9 [facility], analgesicPostlamin JohnEndy J, 7235 [address] ectomy syndrome, [place] 723 5 [address] John, not elsewhere is, [place], John, Enigma, classifiedRadiculo [id number] [place], shane, lumbar , [place]. s, MN, 929686466 regionCervicalgia tel: [phone] , [place] 15697374 . tel: tel:[phone] OFFICE/OUTPAT Twin Twin [facility] Back Pain Postlaminectomy Carlos as Referring IENT VISIT, [facility] (chief syndrome, not 0-201 [place]. Pr ovider: EST Pain Enigma complaint) elsewhere 9 7235 [facility], classifiedLow back John, Will J, [address] painCervicalgiaLon [place] 7 235 [address] John, g term (current) is, [place], John, Caterina, use of opiate [id number] [place], analgesic , [place]. [place], [place], 489386823 tel:[phone] , [place] 26555704 . tel: tel:2 [phone] OFFICE/OUTPAT Twin Twin [facility] Back Pain Postlaminectomy Carlos as Referring IENT VISIT, [facility] (chief syndrome, not 0-201 [place]. Pr ovider: EST Pain Caterina complaint) elsewhere 9 7235 [facility], classifiedLow back John, Will J, [address] painCervicalgiaLon [place] 7 235 [address] John, g term (current) is, [place], John, Enigma, use of opiate [id number] [place], analgesic , [place]. [place], MN, 723148839 tel:[phone] , [place] [id number] . tel: tel:[phone] OFFICE/OUTPAT Twin Twin [facility] Back Pain Postlaminectomy Carlos as Referring IENT VISIT, [facility] (chief syndrome, not 1-201 [place]. Pr ovider: EST Pain Caterina complaint) elsewhere 9 7235 [facility], classifiedLow back John, Will J, [address] painCervicalgiaEnc [place] 7 235 [address] more [place] for is, [place], John, Caterina, therapeutic drug [id number] [place], level , [place]. [place], [place], 417306887 monitoringLong tel: [phone] , [place] term (current) use 59473160 . tel: of opiate tel:2 [phone] analgesic [id number] OFFICE/OUTPAT [facility] Back Pain Postlaminectomy March- Gonzalez as Referring IENT VISIT, [facility] (chief syndrome, not 1-201 [place]. Pr ovider: EST Pain Caterina complaint) elsewhere 9 7235 [facility], classifiedLow back John, Will J, [address] painCervicalgiaLon [place] 7 235 [address] John, g term (current) is, [place], John, Enigma, use of opiate [id number] [place], analgesic , [place]. [place], [place], 479562970 tel: [phone] , [place] 53987881 . tel: tel:2 [phone] OFFICE/OUTPAT [facility] Back Pain Postlaminectomy Feb-0 Garcia Referring IENT VISIT, [facility] (chief syndrome, not 2-201 Viry. Pr ovider: EST Pain Caterina complaint) elsewhere 9 7235 [facility], classifiedRadiculo John, Will J, 7235 [address] shane, lumbar [place] 7235 [address] hms John, regionCervicalgiaL is, [place], John, Caterina, beryl term (current) [id number] [place], use of opiate , [place]. [place], [place], 843899664 analgesic tel:[phone] , [place] [id number] . tel: tel:[phone] OFFICE/OUTPAT [facility] Back Pain Chronic pain Nov- Mario Referring IENT VISIT, [facility] (chief syndromeRadiculopa 3-201 [place] . Provider: EST Pain Caterina complaint) thy, lumbar 9 7235 [facility], regionLow back John, Will J, [address] painLong term [place] 7235 O hms John, (current) use of is, [place], John, Caterina, opiate analgesic [id number] [place], , [place]. [place], [place], 585349507 tel: [phone] , [place] 64395754 . tel: tel:[phone] [facility] Postlaminectomy Nov- Mario Refe [facility] syndrome, not 3-201 [place]. Provid er: Pain Caterina elsewhere 9 7235 [facility], classified Endy Lopez, [address] [place] [address] John, is, [place], Caterina Lopez, [id number] [place], , [place]. [place], [place], 262824382 tel: [phone] , [place] [id number] . tel: tel:[phone] OFFICE/OUTPAT [facility] Back Pain Radiculopathy, Kanga s Referring IENT VISIT, [facility] (chief lumbar regionLow [place]. Provider: EST Pain Caterina complaint) back painLong term 8 7235 [facility], (current) use of Endy Lopez, [address] opiate analgesic [place] 723 5 [address] John, is, [place], Caterina Lopez, [id number] [place], , [place]. [place], [place], 273912239 tel: [phone] , [place] 87924860 . tel: tel:[phone] [facility] Postlaminectomy Sep- Mario Refe [facility] syndrome, not 1-201 [place]. Provid er: Pain Caterina elsewhere 8 7235 [facility], classified Endy Lopez, [address] [place] [address] John, is, [place], Caterina Lopez, [id number] [place], , [place]. [place], [place], 463876224 tel: [phone] , US [id number] . tel: tel:[phone] [facility] Postlaminectomy Aug- Garcia Refe [facility] syndrome, not 5-201 Viry. Provider: Pain Center elsewhere 8 7235 [facility], classified Endy Lopez, [address] [place] [address] John, is, [place], Caterina Lopez, [id number] [place], , [place]. [place], [place], 725203689 tel: [phone] , [place] [id number] . tel: tel: [phone] OFFICE/OUTPAT Twin Twin [facility] Back Pain Postlaminectomy Oct-2 Gonzalez as Referring IENT VISIT, [facility] (chief syndrome, not 2-201 [place]. Pr ovider: EST Pain Enigma complaint) elsewhere 8 7235 [facility], classifiedRadiculo Endy Lopez, 7235 [facility] shane, lumbar [place] [address] John, regionLow back is, [place], John, Caterina, pain [id number] [place], , [place]. [place], [place], 638537877 tel: [phone] , [place] [id number] . tel: tel: [phone] [facility] Postlaminectomy Oct-0 Mario Refe [facility] syndrome, not 1-201 [place]. Provid er: Pain Enigma elsewhere 8 7235 [facility], classifiedLow back Endy Lopez J, [address] pain [place] 7235 [facility] John, is, [place], Chandana Lopeza, [id number] [place], , [place]. [place], [place], 933872799 tel: [phone] , [place] [id number] . tel: tel: [phone] [facility] Postlaminectomy Sep-2 Garcia Refe [facility] syndrome, not 7-201 Viry. Provider: Pain Center elsewhere 8 7235 [facility], classified John Will J, [address] [place] 7235 [facility] John, is, [place], Chandana Lopeza, [id number] [place], , [place]. [place], [place], 567111193 tel: [phone] , [place] [id number] . tel: tel:[phone] OFFICE/OUTPAT [facility] Back Pain Chronic pain Sep-1 Mario Referring IENT VISIT, [facility] (chief syndromePostlamine 9-201 [place] . Provider: EST Pain Caterina complaint) ctomy syndrome, 8 7235 [address] [facility], not elsewhere Endy Lopez, [address] classifiedRadiculo [place] 7 [address] John, shane, lumbar is, [place], John, Enigma, regionLow back [id number] [place], pain , [place]. [place], [place], 996694248 tel:+ [phone] , [place] 07106926 . tel: tel:[phone] OFFICE/OUTPAT [facility] Back Pain Chronic pain Sep-0 Mario Referring IENT VISIT, [facility] (chief syndromeCervicalgi 5- [place] . Provider: EST Pain Enigma complaint) aPostlaminectomy 8 7235 [address] [facility], syndrome, not Endy Lopez, [address] elsewhere [place] [address] John, classifiedLow back is, [place], John, Enigma, painRadiculopathy, [id number] [place], lumbar region , [place]. [place], [place], 280844352 tel: [phone] , US 72019761 . tel: tel:[phone] OFFICE/OUTPAT [facility] Back Pain Postlaminectomy Aug-0 Gonzalez as Referring IENT VISIT, [facility] (chief syndrome, not 6- [place]. Pr ovider: EST Pain Caterina complaint) elsewhere 8 [address]235 [address] [facility], classifiedChronic Endy Lopez , [address] pain [place] [address] John, syndromeCervicalgi is, [place], John, Enigma, aLow back pain [id number] [place], , [place]. [place], [place], 518958145 tel: [phone] , [place] 76766803 . tel: tel:[phone] OFFICE/OUTPAT [facility] Back Pain Chronic pain Kanu-0 Mario Referring IENT VISIT, [facility] (chief syndromeCervicalgi 6-201 [place] . Provider: EST Pain Caterina complaint) aLow back pain 8 7235 [address] [facility], John, Will J, [address] [place] [address] John, is, [place], John, Enigma, [id number] [place], , [place]. [place], [place], 396356168 tel: [phone] , [place] [id number] . tel: tel: [phone] OFFICE/OUTPAT [facility] Back Pain CervicalgiaChronic Apr-1 K angas Referring IENT VISIT, [facility] (chief pain syndromeLow 3-201 [place]. Provider: EST Pain Enigma complaint) back painLumbago 8 7235 [facility], with sciatica, John, Will J, [address] left [place] 7235 [address] John, sidePostlaminectom is, [place], Caterina Lopez, y syndrome, not [id number] [place], elsewhere , [place]. [place], [place], 815659159 classifiedLong tel:43 , [place] term (current) use [id number] . tel: of opiate tel: [phone] analgesic [phone] OFFICE/OUTPAT [facility] Back Pain CervicalgiaChronic Apr-0 K angas Referring IENT VISIT, [facility] (chief pain syndromeLow 6-201 [place]. Provider: EST Pain Caterina complaint) back 8 7235 [facility], painPostlaminectom Endy Lopez J, [address] y syndrome, not [place] 7235 [address] John, elsewhere is, MNJohn [place], classified [id number] [place], , [place]. [place], [place], 532896421 tel:[phone] , US 76559877 . tel: tel: [phone] OFFICE/OUTPAT [facility] Back Pain CervicalgiaChronic Feb-0 K angas Referring IENT VISIT, [facility] (chief pain syndromeLow 6-201 [place]. Provider: EST Pain Enigma complaint) back 8 7235 [facility], painPostlaminectom Endy Lopez J, [address] y syndrome, not [place] 7235 [address] John, elsewhere is, [place], John, Enigma, classified [id number] [place], , [place]. [place], [place], 004392730 tel: [phone] , [place] [id number] . tel: tel: [phone] OFFICE/OUTPAT Twin Twin [facility] Back Pain CervicalgiaChronic K shlomo Referring IENT VISIT, [facility] (chief pain syndromeLow 8201 [place]. Provider: EST Pain Enigma complaint) back 7 7235 [facility], painPostlaminectom John, Will J, [address] y syndrome, not [place] 7[address] John, elsewhere is, [place], John, Caterina, classified [id number] [place], , [place]. [place], [place], 019499017 tel:[phone] , [place] [id number] . tel: tel: [phone] OFFICE/OUTPAT [facility] Back Pain CervicalgiaLow Kangiqra s Referring IENT VISIT, [facility] (chief back 0-201 [place]. Provider : EST Pain Caterina complaint) painPostlaminectom 7 7235 [facility], y syndrome, not John, Will J, [address] elsewhere [place] 7235 [address] John, classified is, [place], John, Enigma, [id number] [place], , [place]. [place], [place], 039809927 tel: [phone] , [place] 05644201 . tel: tel: [phone] OFFICE/OUTPAT [facility] Back Pain Postlaminectomy Gonzalez as Referring IENT VISIT, [facility] (chief syndrome, not 9201 [place]. Pr ovider: EST Pain Caterina complaint) elsewhere 7 7235 [facility], classifiedLow back John, Will J, [address] painCervicalgia [place] [address] John, is, [place], John, Enigma, [id number] [place], , [place]. [place], [place], 689721933 tel: [phone] , US [id number] . tel: tel: [phone] OFFICE/OUTPAT Twin [facility] Back Pain Low back May- Mario Ref erring IENT VISIT, [facility] (chief painCervicalgiaChr [place] . Provider: EST Pain Caterina complaint) onic pain 7 7235 [facility], syndromePostlamine John, Endy J, [address] ctomy syndrome, [place] 7235 [address] John, not elsewhere is, [place], Caterina Lopez, classified [id number] [place], , [place]. [place], [place], 965507146 tel: [phone] , [place] [id number] . tel: tel: [phone] OFFICE/OUTPAT [facility] Back Pain Low back March-3 Mario Ref erring IENT VISIT, [facility] (chief painCervicalgiaChr [place] . Provider: EST Pain Caterina complaint) onic pain 7 7235 [facility], syndromePostlamine Endy Lopez J, [address] ctomy syndrome, [place] 7235 [address] John, not elsewhere is, MNJohn [place], classified [id number] [place], , [place]. [place], [place], 565074433 tel: [phone] , US 94656069 . tel: tel: [phone] OFFICE/OUTPAT [facility] Back Pain Low back May-0 Mario Ref erring IENT VISIT, [facility] (chief painCervicalgiaChr [place] . Provider: EST Pain Enigma complaint) onic pain syndrome 7 7235 [facility], Endy Lopez J, [address] [place] 7235 [facility] John, is, [place], Caterina Lopez, [id number] [place], , [place]. [place], [place], 242539229 tel: [phone] , US [id number] . tel: tel: [phone] OFFICE/OUTPAT [facility] Back Pain CervicalgiaChronic Apr-0 K angas Referring IENT VISIT, [facility] (chief pain syndromeLow [place]. Provider: EST Pain Caterina complaint) back 7 7235 [facility], painPostlaminectom John, Endy J, [address] y syndrome, not [place] 7[address] John, elsewhere is, [place], Caterina Lopez, classified [id number] [place], , [place], [place], 405788763 tel:+ [phone] , US 95762326 . tel: tel:[phone] OFFICE/OUTPAT [facility] Back Pain Low back Jan- Mario Ref erring IENT VISIT, [facility] (chief painCervicalgiaChr [place] . Provider: EST Pain Enigma complaint) onic pain 7 7235 [facility], syndromePostlamine John, Endy J, [address] ctomy syndrome, [place] [address] John, not elsewhere is, [place]John [place], classified [id number] [place], , [place]. [place], [place], 651546102 tel: [phone] , US 38762022 . tel: tel:[phone] OFFICE/OUTPAT [facility] Back Pain CervicalgiaLow Kanga s Referring IENT VISIT, [facility] (chief back painChronic [place]. Provider: EST Pain Enigma complaint) pain syndrome 7 7235 [facility], Endy Lopez J, [address] [place] [address] John, is, [place], Caterina Lopez, [id number] [place], , [place]. [place], [place], 006009817 tel: [phone] , US [id number] . tel: tel:[phone] OFFICE/OUTPAT [facility] Back Pain Low back Mario Ref erring IENT VISIT, [facility] (chief painCervicalgiaChr [place] . Provider: EST Pain Caterina complaint) onic pain syndrome 7 7235 [facility], John Will J, [address] [place] 7235 [address] John, is, [place], John, Enigma, [id number] [place], , [place]. [place], [place], 101892660 tel:[phone] , [place] [id number] . tel: tel: [phone] OFFICE/OUTPAT Twin [facility] Back Pain Low back Dec-0 Mario Ref erring IENT VISIT, [facility] (chief painCervicalgiaPos 2 [place] . Provider: EST Pain Caterina complaint) [facility]inectomy 6 [facility]235 [facility], syndrome, not John, Will J, [address] elsewhere [place] 7235 [address] John, classifiedChronic is, [place], John, Caterina, pain syndrome [id number] Janae weiner [place], , [place]. [place], [place], 925672783 tel:[phone] , [place] 68971501 . tel: tel: [phone] OFFICE/OUTPAT Twin [facility] Back Pain Low back Nov-0 Mario Ref erring IENT VISIT, [facility] (chief painCervicalgiaPos [place] . Provider: EST Pain Enigma complaint) [facility]laminectomy 6 [facility]235 [facility], syndrome, not John, Will J, 7235 [address] elsewhere [place] 7235 [address] John, classified is, [place], John, Caterina, [id number] [place], , [place]. [place], [place], 926533484 tel:[phone] , US [id number] . tel: tel: [phone] OFFICE/OUTPAT Twin [facility] Back Pain Lumbago with Aug- Van Referring IENT VISIT, [facility] (chief sciatica, left 4-201 [place] Provider: EST Pain Enigma complaint) sideLong term 6 Kera. [facility], (current) use of [address] Will J, [address] opiate John, [address] John, analgesicCervicalg [place] Kalin e, Enigma, ia is, [place], [place], [id number] s, [place], 777935157 , [place]. [address] , [place] tel: . tel: [phone] tel: [phone] OFFICE/OUTPAT Twin Twin [facility] Back Pain CervicalgiaLow Kanga s Referring IENT VISIT, [facility] (chief back [place]. Provider : EST Pain Caterina complaint) painPostlaminectom 6 7235 [facility], y syndrome, not John, Will J, [address] elsewhere [place] 7[address] John, classified is, [place], John Caterina, [id number] [place], , [place]. [place], [place], 729771541 tel: [phone] , [place] [id number] . tel: tel: [phone] OFFICE/OUTPAT [facility] Back Pain Low back Mario Ref erring IENT VISIT, [facility] (chief painCervicalgiaPos [place]etta . Provider: EST Pain Caterina complaint) tlaminectomy 6 7235 [facility], syndrome, not John, Will J, [address] elsewhere [place] [address] John, classified [place], [place], John Caterina, [id number] [place], , [place]. [place], [place], [id number] tel: [phone] , [place] [id number] . tel: tel: [phone] OFFICE/OUTPAT [facility] Back Pain CervicalgiaLow Kanga s Referring IENT VISIT, [facility] (chief back painLumbago [place]. Provider: EST Pain Caterina complaint) with sciatica, 6 7235 [facility], left side John, Will J, [address] [place] [address] [place], [place], [place], John, Enigma, [id number] [place], , [place], [place], [id number] tel: [phone] , [place] [id number] . tel: tel: [phone] OFFICE/OUTPAT [facility] Back Pain Low back Mario Ref erring IENT VISIT, [facility] (chief painCervicalgia Rosetta. Provider: EST Pain Caterina complaint) 6 7235 [facility], John, Endy J, [address] [place] [address] [place], [place], [place], Caterina Lopez, [id number] [place], , [place], [place], [id number] tel:[phone] , [place] [id number] . tel: tel:[phone] OFFICE/OUTPAT [facility] Back Pain CervicalgiaLow March- Kanga s Referring IENT VISIT, [facility] (chief back painLumbago 0- Rosetta. Provider: EST Pain Caterina complaint) with sciatica, 6 7235 [facility], left John, Endy Patel, [address] sidePostlaminectom [place] [address] [place], y syndrome, not [place], [place], John, Caterina, elsewhere [id number] [place], classified , [place]. [place], [place], [id number] tel: [phone] , [place] [id number] . tel: tel:[phone] OFFICE/OUTPAT [facility] Back Pain Low back Apr-2 Mario Ref erring IENT VISIT, [facility] (chief painCervicalgiaLum [place] . Provider: EST Pain Enigma complaint) bago with 6 [facility], sciatica, left Endy Lopez, [address] [place] [address] [place], [place], [place], Caterina Lopez, [id number] [place], , [place], [place], [id number] tel: [phone] , [place] [id number] . tel: tel:[phone] OFFICE/OUTPAT [facility] Back Pain Low back Apr-0 Mario Ref erring IENT VISIT, [facility] (chief painCervicalgia 6 [place]. Provider: EST Pain Enigma complaint) 6 7235 [facility], Endy Lopez, [address] [place] [address] [place], [place], [place], Caterina Lopez, [id number] [place], , [place], [place], [id number] tel: [phone] , [place] [id number] . tel: tel: [phone] OFFICE/OUTPAT [facility] Back Pain Low back Mar-2 Mario Ref erring IENT VISIT, [facility] (chief painCervicalgiaLum 5-201 [place] . Provider: NEW Pain Enigma complaint) bago with 6 [address], sciatica, left John, Will J, [address] sideLong term [place] [address] John, (current) use of [place], [place], John, Enigma, opiate [id number] [place], analgesicPostlamin , [place]. [place], [place] , [id number] ectomy syndrome, tel: [phone] , [place] not elsewhere [id number] . tel: classified tel: [phone] Family History Family Member Type Diagnosis Age At Onset Mother Problem (finding) back pain Payers Payer name Insurance type Covered green party ID Authorization(s ) Medicare MB [id number] [facility] [id number] Social History Type Description Quantity Date Captured [...] due Goal UDT. Due on due Goal LOCOMOTIVE INSPECTOR Paperwork. Due on due Goal Weight. Due [...] Review Allergy List. Due on due Goal DIRECTOR OF LABOR RELATIONS Scanned. Due on due Goal Unhealthy drug [...] due Goal FIT. Due on due Goal DIRECTOR OF LABOR RELATIONS Scanned. Due on due Goal Hepatitis C screening. Due on Goal FIT-DNA. Due on due Goal OARS. Due on due Goal Weight. Due on due Goal Zoster vaccine (1st). Due on due Goal UDT. Due on due Goal ALT (SGPT). Due on d ue Goal LOCOMOTIVE INSPECTOR Paperwork. Due on due Goal CT-Colonography. Due [...] Order Annual PT. Due on due Goal LOCOMOTIVE INSPECTOR Paperwork. Due on due Goal DIRECTOR OF LABOR RELATIONS Scanned. Due on due Goal Height. Due [...] Goal Hepatitis C screening. Due on Goal DIRECTOR OF LABOR RELATIONS Scanned. Due on due Goal Unhealthy drug [...] due Goal FIT. Due on due Goal LOCOMOTIVE INSPECTOR Paperwork. Due on due Goal Hepatitis C screening. Due on du Goal Zoster vaccine (). Due on due Goal Lipid panel. Due on due Goal LOCOMOTIVE INSPECTOR Paperwork. Due on due Goal ALT (SGPT). [...] due Goal UDT. Due on due Goal DIRECTOR OF LABOR RELATIONS Scanned. Due on due Goal Medication Reconciliation. Due o n due Goal LOCOMOTIVE INSPECTOR Paperwork. Due on due Goal ALT (SGPT). Due on d ue Goal Unhealthy drug use screening. on due Goal FIT-DNA. Due on due Goal Creatinine. Due on d ue Goal Lipid panel. Due on due Goal DIRECTOR OF LABOR RELATIONS Scanned. Due on due Goal Tobacco Use. [...] Goal Update Social History. Due on Goal LOCOMOTIVE INSPECTOR Paperwork. Due on due Goal DIRECTOR OF LABOR RELATIONS Scanned. Due on due Goal AST (SGOT). [...] e Goal UDT. Due on due Goal DIRECTOR OF LABOR RELATIONS Scanned. Due on due Goal AST (SGOT). Due on d ue Goal OARS. Due on due Goal Height. Due on due Goal ALT (SGPT). Due on d ue Goal Order Annual PT. Due on due Goal Review Allergy List. Due on due Goal PHQ-9. Due on due Goal LOCOMOTIVE INSPECTOR Paperwork. Due on due Goal Tobacco Use. Due on due Goal Medication Reconciliation. Due o n due Goal Weight. Due on due Goal Medication Reconciliation. Due o n due Goal PHQ-9. Due on due Goal LOCOMOTIVE INSPECTOR Paperwork. Due on due Goal UDT. Due on due Goal AST (SGOT). Due on d ue Goal DIRECTOR OF LABOR RELATIONS Scanned. Due on due Goal OARS. Due [...] due Goal PHQ-9. Due on due Goal LOCOMOTIVE INSPECTOR Paperwork. Due on due Goal Order Annual PT. Due on due Goal OARS. Due on due Goal DIRECTOR OF LABOR RELATIONS Scanned. Due on due Goal ALT (SGPT). Due on d ue Goal AST (SGOT). Due on d ue Goal UDT. Due on due Goal Tobacco Use. Due on due Goal Medication Reconciliation. Due o n due Goal OARS. Due on due Goal DIRECTOR OF LABOR RELATIONS Scanned. Due on due Goal Update Social History. Due on Goal AST (SGOT). Due on d ue Goal Height. Due on due Goal Weight. Due on due Goal Order Annual PT. Due on due Goal ALT (SGPT). Due on d ue Goal PHQ-9. Due on due Goal UDT. Due on due Goal Review Allergy List. Due on due Goal LOCOMOTIVE INSPECTOR Paperwork. Due on due Goal AST (SGOT). Due on d ue Goal Review Allergy List. Due on due Goal ALT (SGPT). Due on d ue Goal UDT. Due on due Goal Tobacco Use. Due on due Goal Order Annual PT. Due on due Goal DIRECTOR OF LABOR RELATIONS Scanned. Due on due Goal Update Social History. Due on Goal Medication Reconciliation. Due o n due Goal OARS. Due on due Goal Height. Due on due Goal Weight. Due on due Goal PHQ-9. Due on due Goal LOCOMOTIVE INSPECTOR Paperwork. Due on due Goal Order Annual PT. Due on due Goal OARS. Due on due Goal Update Social History. Due on du e Goal AST (SGOT). Due on d ue Goal UDT. Due on due Goal Height. Due on due Goal ALT (SGPT). Due on d ue Goal LOCOMOTIVE INSPECTOR Paperwork. Due on due Goal DIRECTOR OF LABOR RELATIONS Scanned. Due on due Goal PHQ-9. Due [...] Goal Tobacco Use. Due on due Goal DIRECTOR OF LABOR RELATIONS Scanned. Due on due Goal LOCOMOTIVE INSPECTOR Paperwork. Due on due Goal AST (SGOT). Due on d ue Goal DIRECTOR OF LABOR RELATIONS Scanned. Due on due Goal Order Annual PT. Due on due Goal Tobacco Use. Due on due Goal Medication Reconciliation. Due o n due Goal Review Allergy List. Due on due Goal UDT. Due on due Goal Weight. Due on due Goal ALT (SGPT). Due on d ue Goal PHQ-9. Due on due Goal Height. Due on due Goal LOCOMOTIVE INSPECTOR Paperwork. Due on due Goal Update Social History. Due on Goal OARS. Due on due Goal Weight. Due on due Goal AST (SGOT). Due on d ue Goal Medication Reconciliation. Due o n due Goal ALT (SGPT). Due on d ue Goal Review Allergy List. Due on due Goal UDT. Due on due Goal Update Social History. Due on Goal DIRECTOR OF LABOR RELATIONS Scanned. Due on due Goal PHQ-9. Due on due Goal OARS. Due on due Goal Tobacco Use. Due on due Goal LOCOMOTIVE INSPECTOR Paperwork. Due on due Goal Height. Due on due Goal Order Annual PT. Due on due Goal Tobacco cessation counseling com pleted Goal Review Allergy List. Due on due Goal LOCOMOTIVE INSPECTOR Paperwork. Due on due Goal OARS. Due on due Goal Medication Reconciliation. Due o n due Goal Weight. Due on due Goal UDT. Due on due Goal Height. Due on due Goal Tobacco Use. Due on due Goal AST (SGOT). Due on d ue Goal Order Annual PT. Due on due Goal DIRECTOR OF LABOR RELATIONS Scanned. Due on due Goal Update Social History. Due on Goal PHQ-9. Due on due Goal ALT (SGPT). Due on d ue Goal UDT. Due on due Goal Medication Reconciliation. Due o n due Goal LOCOMOTIVE INSPECTOR Paperwork. Due on due Goal Update Social [...] due Goal Height. Due on due Goal DIRECTOR OF LABOR RELATIONS Scanned. Due on due Goal AST (SGOT). Due on d ue Goal DIRECTOR OF LABOR RELATIONS Scanned. Due on due Goal LOCOMOTIVE INSPECTOR Paperwork. Due on due Goal ALT (SGPT). [...] ALT (SGPT). Due on d ue Goal LOCOMOTIVE INSPECTOR Paperwork. Due on due Goal UDT. Due on due Goal AST (SGOT). Due on d ue Goal Medication Reconciliation. Due o n due Goal Weight. Due on due Goal Height. Due on due Goal PHQ-9. Due on due Goal DIRECTOR OF LABOR RELATIONS Scanned. Due on due Goal Tobacco Use. [...] ANALYSIS , URINE, WITH Ordered MED REPORT ([id number]), Ordered on: Future Order: Lab Order Drug Test Def [address]+ [address] (G0483), Ordered Ordered on: Future Order: Lab Order Drug Test Def [address]+ [address] (G0483), Ordered Ordered on: Future Order: Lab Order COMPLIANCE DRUG ANALYSIS , URINE, WITH Ordered MED REPORT ([id number]), Ordered on: Future Order: Lab Order MRSA/MSSA Screening ([id number]), Ordered Ordered on: Future Order: Lab Order COMPLIANCE DRUG ANALYSIS , URINE, WITH Ordered MED REPORT ([id number]), Ordered on: History Of Present Illness Encounter [...] her L sydni ulder on 12/30/21 with [facility] in order for infection to clear. Additional [...] h er L shoulder on 12/30/21 with [facility] in order for in fection to clear. [...] to her Yomi mann on 12/30/21 with [facility] in order for infection to clear. Additional [...] her L sydni ulder on 12/30/21 with [facility] in order for infection to clear. Additional [...] to her L shoulder on 12/30/21 with [facility] in order for infection to clear. Additional [...] or hardware removal surgery on 12/30/21 with [facility] in order for infection to clear. Will [...] is [place] with [facility] in order for infection to ca ar. [...] for hardware removal surgery in December with [facility] in order for in fection to clear. [...] and back pain continue to be eleva amry. Recent exacerbations r/t allergies. Ongoing r elief [...] pain meds/drugs and rest. Back Pain (comments) Angei is here for follow up and medications [...] L side weakness -- was treated by [facility] ic. Was put on Warfarin, unsure if it can be held for sinus surgery or SCS revision.[facility]resents [facility] #3 oxycodone 5mg -- on track. Reports [...] and enroll ed in a program through [facility]. She also not es of increasing [...] to refill her medications. She will call [facility] if sh e has any questions prior [...] injury pain. She is going in again tomnv row to decide what to do. She [...] mo re headaches. She was seen by [facility] who told her she has a screw loose. She was referred to Dr. Gonzalez at [facility]. She has not heard from t [...] tomorrow. She said s he will get [place] for 4-5 days maximum followi ng the [...] states it aggrevated her pain. Medical [facility] continues to be effective for reduci ng her pain. She will be completing diagnosti c injections today through [facility]. No other concerns [...] #1 Oxycodone, surplus. She was hospitalized in [place] about a w [place] ago for her back pain. She is having an epd iural steroid injection done at [facility] tomorrow. She isn't sure how well the [...] neck surgery. ENT referred her to an agricultural produce packer for additional evaluation. No other concerns today. [...] will be undergoing a Cervical Fusion with [facility]. She will be following up with [facility] [...] [facility] She has noticed increased restlessne ss and [...] re ferred by Dr. Amna Fletcher from [facility]. Angie is here today for her initial consult regarding her back, neck and knee pain which bega n years ago and has been aggrevated from [facility]. She had a lumbar fusion in the past. She also has underwent several neck surgeri es including a cervical fusion and plans to have additional surgery done by Dr. Rodriguez at [facility]. She also has a history of [...] regul christian. [place] No ot her concerns today. Medical records:Dr. Rodriguez at [facility] - neck surgeon Dr. Amna Fletcher a t [facility] - PCP recordsPast treatmen t:SABAS - [...] 10/27/2020. Additional hardwar e removal surgery through [facility] completed 12/30/21. Another s urgery to replace [...] implant on 07/11. Improvement with reprogramming assessment halfway (current) use of opiate analge sic impression [...] [facility]ul [facility] [...]
--- OUTSIDE RECORDS SUMMARY | 2022-08-01 07:53 | XMS_ITS | Continuity of Care Document ---
:1965 Author Organization [facility] Address [address] [place] [address] Phone Care Team Providers Name Role Phone [...] Description For Visit Copied on Encounter [facility] No Information Nov- ZProvider Arthritis Scroggins 6-[address] [place] 4 . . Rheumatolo gy, [address] [facility], [place], [place], [id number], [place] tel:[phone] [facility] TOBACCO USE Apr-1 Michele Arthritis DISORDEROBESITY 8-[address] [place]. And NOSOSTEOPOROSIS NOS [address], gy, [address], [place], [id number], [place], [place]. [id number], tel:[phone] tel:[phone] [facility] Age-related Apr-0 ZProvider Arthritis Scroggins osteoporosis w/o 7-[address] [facility] current 4 . . Rheumatolo pathological gy, [address] [place] [address], [id number], [place] tel:[phone] [facility] OBESITY NOSTOBACCO Mar-2 ZProvider Arthritis USE 8[address] And DISORDEROSTEOPOROSI 4 . . Rheumatolo S NOSMALAISE AND gy, [address], [place], [place], [id number], [place] tel:[phone] [place] [facility]AL[facility] [place] Tobacco useObesity, Mar-2 Michele Arthritis unspecifiedAge-rela Nara. And mary osteoporosis [address]o [address], gy, [address], [address] [place], [place], [place], [id number], [place], [place]. [id number], tel:[phone] tel:[phone] Family History Family Member Type Diagnosis Age At Onset Problem (finding) Mother Problem (finding) The patient reports no changes except otherwise noted during the prese nt visit Problem (finding) Father living Problem (finding) Osteoporosis Problem (finding) Number of Sisters Problem (finding) Number of Brothers Payers Payer name Insurance type Covered democrat ID Authorization(s ) No Information Social History [...]
--- OUTSIDE RECORDS SUMMARY | 2022-08-01 07:54 | XMS_ITS | Encounter Summary ---
:1965 Author Organization [facility] Address [address] [place] [address] Care Team Providers Name Role Phone Jose Holden MD Primary Care Provider [phone] Reason for Visit Reason Comments Revisit trigger point injections Encounter Details Date Type Department Care Team Description 06/29/2018 Office Visit [facility] (Primary Dx); [facility] Raul Alvarado MD Medical marijuana use; Management [address] H/O cervical spinal arthrodesis; [address] [place], [place] [address] [phone] Social History Tobacco Use Types Packs/Day Years [...] treatment plan is, please contact me via [employer] online messaging or call the office at and ask to speak to a nurse. Tony Pittman MD Pain Medicine documented in this encounter Progress Notes Tony Pittman MD - 06/29/2018 10:20 AM CDT [facility] Follow-up Visit 06/29/2018 Interim history: [...] 5 mg Q6H - Prescribes by [facility], has been taking [...] a pain clinic in the past. [facility] physical therapy: Past [...] ??? medical cannabis patient certified Take 1 [place] by mouth . ??? naloxone (NARCAN) 4 [...] facility-administered medications prior to visit. [place] and [place] Prescription Monitoring Program reviewed Allergies: Allergies Allergen [...] in her mother. Social history:she lives in [place], [place].she is not currently working. Smokin/2 ppd. 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 Patient education: I [...] Pain Medicine Physical Medicine and Rehabilitation [facility] This document serves as a record of services personally performed by Tony Pittman MD. It was created on his behalf by Gillian Harding, a trained certified medical biller. The creation of this record is based [...] disorder documented in this encounter Care Teams Planning Assistant Relationship Specialty Start Date End Date Jose Holden MD PCP - General Otolaryngology 12/14/[address] [place] [id number] documented as of this encounter
--- OUTSIDE RECORDS SUMMARY | 2022-08-01 07:55 | XMS_ITS | Encounter Summary ---
:1965 Author Organization [facility] Address [address], [place] [address] Care Team Providers Name Role Phone Unassigned, Provider Primary Care Provider Unavailable Reason for Visit Procedure/Equipment (Routine) - Incomplete Specialty Diagnoses / Procedures Referred By Contact Refer red To Contact Diagnoses Screening procedure Pseudarthrosis after fusion or arthrodesis Pete Gonzalez MD Procedures XR Cervical Spine W Flex And Ext [address] [place] [address] Referral ID Status Reason Start Date Expiration Date Visits V isits Requested Authorized [id number] Incomplete 10/31/2017 01/30/2019 1 1 Encounter Details Date Type Department Care Team Description 11/29/2017 Imaging [facility] Screening procedure [facility] Radiology [place], [place] [address] [address] [place] [address] [phone] Social History Tobacco Use Types Packs/Day Years [...] dure Results for this FLEX AND EXT TECHNICAL SUPPORT ENGINEER procedure are i n the results section. documented in this encounter Results XR Cervical Spine W Flex And Ext (11/29/2017 9:54 AM TECHNICAL SUPPORT ENGINEER) Anatomical Region Laterality Modality Spine, C-Spine, Neck Computed Radiograph y Specimen (Source) Anatomical Collection Method Collection Time Re ceived Time Location / / Volume Laterality 11/29/2017 9:54 AM TECHNICAL SUPPORT ENGINEER Narrative 11/29/2017 10:59 AM TECHNICAL SUPPORT ENGINEER XR CERVICAL SPINE W FLEX AND EXT [...] condition documented in this encounter Care Teams Trimmer Helper Relationship Specialty Start Date End Date Unassigned, Provider PCP - General 08/05/03 12/13/[address] [place] [phone] documented as of this encounter
[2022-08-01 08:21] LABS: Appearance Urine Clear (Clear); Bilirubin Urine Negative (Negative); Blood Urine Negative (Negative); Color Urine Yellow (Yellow); Glucose Urine Negative (Negative); Ketones Urine Negative (Negative); Leukocyte Esterase Urine Negative (Negative); Nitrite Urine Negative (Negative); Protein Urine Negative (Negative); Specific Gravity Urine <= 1.005 (1.000-1.030); Urobilinogen Urine 0.2 (0.2-1.0); pH Urine 5.5 (5.0-8.5)
[2022-08-01 08:31] LABS: Cannabinoid Screen Urine POSITIVE (Negative); Cocaine Screen Urine Negative (Negative); Methamphetamines Screen Urine Negative (Negative); Opiate Screen Urine Negative (Negative); Phencyclidine Screen Urine Negative (Negative)
[2022-08-01 08:32] LABS: Amphetamine Screen Urine Negative (Negative); Barbiturate Screen Urine Negative (Negative); Benzodiazepines Screen Urine POSITIVE (Negative); Buprenorphine Screen Urine Negative (Negative); Methadone Screen Urine Negative (Negative); Oxycodone Screen Urine Negative (Negative); Tricyclic Antidepressant Urine Negative (Negative)
[2022-08-01 08:42] LABS: Squamous Epithelial Cell Urine Few (None-Few); WBC Urine 0-2 (0-5)
[2022-08-01 08:57] LABS: Ethanol* < 0.01 % (0.01-0.03)
--- NOTE | 2022-08-01 09:08 | ED.NURSE ---
was unable to urinate, fem cath was used and urine sample obtained. did empty bladder -approx 250 ml of clear yellow urine. is able to stand and pivot. does not want to use her left side-arm, as she explains that she has had surgery in the past and has limited use.is able to carry on a conversation. is slurred some and conversation wanders.
[2022-08-01] MEDS: 0.9 % SODIUM CHLORIDE 1000 ml 1,000 ML IV (10:16)
[2022-08-01] MEDS: ONDANSETRON 2 MG/ML inj 4 MG IVP (10:21)
[2022-08-01] MEDS: diphenhydrAMINE 50 MG/ML inj 25 MG IVP (10:22)
[2022-08-01] MEDS: KETOROLAC 30 MG/ML inj IVP (10:24)
[2022-08-01] MEDS: OxyCODONE/APAP 5-325 TABLET 1 TAB PO (11:04)
== END 2022-08-01 12:20 | disposition home or self-care (01) ==
PROVIDERS: Emergency Provider Family Medicine; PCP Family Medicine
DX: G43.909 Migraine, unspecified, not intractable, without status migrainosus (principal); R53.1 Weakness
CPT/HCPCS: 36415; 70450; 70496; 70498; 80048; 80076; 80306; 81001; 82077; 85025; 93005; 96374; 96375; 99285; A9270; J1200; J1885; J2405; J7030; Q9967

== ENCOUNTER 2022-08-08 20:33 | Emergency (ER) | payer MEDICARE, OTHER, SELFPAY ==
[2022-08-08 21:06] VITALS: BP 142/114; PULSE 77; RESP 18; BMI 26.0
--- NOTE | 2022-08-08 21:43 | ED.GENADULT ---
HPI - General Adult General Time Seen by Provider: 21:44 Date Seen: 08/08/22 Chief complaint: Extremity Pain/Injury, Lower Stated complaint: Bilateral knee pain Time Seen by Provider: 08/08/22 21:38 Source: patient, RN notes reviewed and old records reviewed Mode of arrival: ambulatory Limitations: no limitations History of Present Illness HPI narrative: Angie is a 57-year-old female well-known to the emergency room with a history of stroke, chronic pain, frequent falls who comes to the emergency room with complaints of knee pain. Patient states that tonight she was coming home from [place] and a friend was helping her take boots off. She states that when her friend did this she felt a crack in each of her knees. She is not sure when she had knee replacement but it has been quite some time she says and she calls them ?old knees?. She also notes that she has been falling frequently. This is not new for her. She denies any head injury or loss of consciousness. Patient also states that her left arm feels funny. She states that she can feel something different in it. She does state that it is painful and she has had multiple surgeries. She is currently on oxycodone for discomfort. She states that she can barely move her left arm and tries to do most of her activities with her right arm. Related Data Home Medications Medication Instructions Recorded Confirmed cholecalciferol (vitamin D3) 125 5,000 unit PO DAILY 06/07/22 08/04/22 mcg (5,000 unit) tablet cyanocobalamin (vitamin B-12) 5,000 mcg PO DAILY 06/07/22 08/04/22 2,500 mcg tablet esomeprazole magnesium 40 mg 40 mg PO DAILY 06/07/22 08/04/22 capsule,delayed release magnesium gluconate 27.5 mg 27.5 mg PO DAILY 06/07/22 08/04/22 magnesium (500 mg) tablet oxycodone 5 mg tablet 5 mg PO QID 06/07/22 08/04/22 ropinirole 2 mg tablet 2 mg PO .Bedtime 06/07/22 08/04/22 diclofenac sodium 1 % topical gel 2 g topical 07/22/22 08/04/22 Previous Rx's Medication Instructions Recorded acetaminophen 650 mg 1,300 mg PO .Every 8 Hours #180 07/12/22 tablet,extended release tabs lamotrigine 200 mg tablet 200 mg PO BID #60 tabs 06/08/22 valacyclovir 500 mg tablet 500 mg PO DAILY cold sores #90 tabs 06/14/22 albuterol sulfate 90 mcg/actuation 2 puff inhalation Q6H PRN 07/23/22 aerosol inhaler (Ventolin HFA) shortness of breath or wheezing #8.5 grams aspirin 81 mg tablet,delayed 81 mg PO QDAY #90 tabs 07/23/22 release bupropion HCl 300 mg 24 hr tablet, 300 mg PO QDAY #90 tabs 07/23/22 extended release cetirizine 10 mg tablet (Zyrtec) 10 mg PO QDAY #90 tabs 07/23/22 pregabalin 150 mg capsule 150 mg PO BID #120 caps 07/23/22 pregabalin 300 mg capsule 300 mg PO BID #120 caps 07/23/22 quetiapine 50 mg tablet 50 mg PO .Bedtime sleep #30 tabs 07/23/22 rizatriptan 10 mg tablet 10 mg PO ONCE PRN migraine 07/23/22 headache #10 tabs sumatriptan 5 mg/actuation nasal 5 mg intranasal ONCE PRN migraine 07/23/22 spray headache #6 ea tizanidine 4 mg tablet 4 mg PO Q8H PRN muscle spasticity 07/23/22 #30 tabs diazepam 5 mg tablet (Valium) 5 mg PO BID PRN anxiety #60 tabs 08/04/22 Allergies Allergy/AdvReac Type Severity Reaction Status Date / Time acyclovir Allergy Mild rash Verified 08/04/22 11:18 shingles like benzoin Allergy Mild rash, Verified 08/04/22 11:18 blisters, itching Cephalosporins Allergy Mild Rash Verified 08/04/22 11:18 penicillin V Allergy Mild Rash Verified 08/04/22 11:18 adhesive Allergy Unknown contact Verified 08/04/22 11:18 dermatitis to tape amoxicillin Allergy Unknown Rash Verified 08/04/22 11:18 baclofen Allergy Unknown Rash Verified 08/04/22 11:18 cefaclor Allergy Unknown Rash Verified 08/04/22 11:18 chlorhexidine Allergy Unknown contact Verified 08/04/22 11:18 dermatitis fentanyl Allergy Unknown Hallucinati Verified 08/04/22 11:18 ng gabapentin Allergy Unknown muscular Verified 08/04/22 11:18 twitch, slurred speech nortriptyline Allergy Unknown Palpitation Verified 08/04/22 11:18 s NSAIDS (Non-Steroidal Allergy Unknown gastric Verified 08/04/22 11:18 Anti-Inflamma bypass silver Allergy Unknown contact Verified 08/04/22 11:18 dermatitis Milk solids Allergy Intermediate Vomiting Uncoded 08/04/22 11:18 RACHEL Allergy Mild rash Uncoded 08/04/22 11:18 needing early removal Pollen Allergy Unknown runny nose Uncoded 08/04/22 11:18 Soy Allergy Allergy Unknown Uncoded 08/04/22 11:18 Sulfamethoxazole / Allergy Unknown nausea, GI Uncoded 08/04/22 11:18 trimethoprim upset dermbond AdvReac Unknown contact Uncoded 08/04/22 11:18 dermatitis Review of Systems Status of ROS: Reports: 6 or more systems reviewed and unremarkable except as noted in History and below Const: Denies: fever or chills Eyes: Denies: change in vision ENMT: Denies: throat pain Cardio: Denies: chest pain or shortness of breath with exertion Resp: Denies: shortness of breath or cough GI: Denies: abdominal pain or vomiting Neuro: Denies: headache PFSH PFSH Medical History Allergic rhinitis Ataxia due to cerebrovascular disease Bipolar II disorder Cerebral arteriosclerosis with history of previous cerebrovascular accident Chronic back pain Chronic neck pain Chronic obstructive pulmonary disease Continuous opioid dependence (08/27/16) Cyclothymic disorder Fibromyalgia ELLEN (generalized anxiety disorder) Herpes labialis History of cerebrovascular accident Migraine Neuropathy associated with polyneuropathy, organomegaly, endocrinopathy, monoclonal gammopathy, and skin changes syndrome Nicotine dependence Polypharmacy Posttraumatic stress disorder Pyogenic arthritis of left shoulder region (03/25/21) Restless legs syndrome 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) Surgical History History of abdominoplasty History of arthroplasty of both knees History of bilateral cataract extraction History of carpal tunnel release of both wrists (2016) History of cholecystectomy History of foot surgery History of gastric bypass (1999) History of left shoulder replacement History of mastopexy History of neck surgery History of nevus excision History of sinus surgery History of spinal surgery History of total hysterectomy with bilateral salpingo-oophorectomy (BSO) History of tubal ligation Status post insertion of spinal cord stimulator Family History Family/Other Breast cancer Lung cancer Father Cancer Coronary artery disease Sister Congenital heart defect Mother Pancreatic cancer, Onset Age: 60 Social History Narrative: medical marijuana use chronic narcotic use tobacco use Smoking Status: Former smoker What tobacco products do you use: cigarettes Smoking quit date/years: <= 15 years ago Do you use any of these nicotine containing products: None Second hand tobacco smoke exposure: No How often do you have a drink containing alcohol: never How often do you have six or more drinks on one occasion: Never AUDIT-C Alcohol total score: 0 Non-prescribed substance use: marijuana (any form) service: No Exam Const: Vital Signs, click to edit/add: Vital Signs - 24 hr 08/08/22 21:06 08/08/22 23:21 Pulse Rate [Pulse Oximeter] 77 78 Respiratory Rate 18 16 Blood Pressure [14 2/114] 142/114 H Blood Pressure [Ri ght Upper Arm] 142/114 H 108/70 Pulse Oximetry 97 Oxygen Delivery Me thod Room Air Room Air Documenting provider has reviewed patient's vital signs: yes Common normals: no apparent distress and oriented x3 General appearance: cooperative, comfortable and well kempt Other: Angie is at baseline. HENMT: Common normals: normocephalic and head/scalp atraumatic Head and scalp: normocephalic and atraumatic Eye: General eye: normal appearance of both eyes Neck & C-Spine: Common normals: supple Resp: Common normals: normal respiratory effort and clear to auscultation bilaterally Effort & inspection: able to speak in complete sentences Auscultation: clear to auscultation bilaterally Cardio: Common normals: regular rate and regular rhythm Rate: regular rate Rhythm: regular rhythm : Common normals: no CVA tenderness Bladder/kidney exam: no CVA tenderness Back & Pelvis: Common normals: no CVA tenderness Extremity: Other: Patient noted to have pain with palpation over the left knee superior tibia as well as the lateral joint. She is able to extend her knee. This did seem to cause her difficulty. However when she was disrobing she was able to pull her pants off with no difficulty or deficit of strength. Her right knee is tender over the medial joint line and anterior knee. There is ecchymosis noted on the medial surface of the left knee as well as right superior fibular head. These appear to be old bruising and fading. Her left shoulder shows old scars. No significant tenderness or erythema or bruising. Patient initially shows me that she is unable to lift her left arm. However with distraction she is using that arm to stabilize herself when she sits up and she is able to pull her clothes off over her head with both shoulders per nursing. Neuro: Common normals: oriented x3 and moves all extremities Psych: Common normals: speech normal Appearance: well kempt Speech: normal speech Course Course Hospital Course: Patient is complaining of pain and has had frequent falls. Even though she is distractible and moving around in the exam room I do feel we should x-ray her. Left shoulder and bilateral knees ordered. Reevaluation(s) Reevaluation #1: While awaiting results of the x-rays patient is requesting pain medications. Vital Signs Vital signs: Initial Vital Signs Temperature Source Temporal Artery Scan 08/08/22 21:06 Pulse Rate 77 08/08/22 21:06 Respiratory Rate 18 08/08/22 21:06 Blood Pressure 142/114 H 08/08/22 21:06 Blood Pressure Mean 123 08/08/22 21:06 Blood Pressure Position Sitting 08/08/22 21:06 Oxygen Delivery Method 08/08/22 21:06 Vital Signs Pulse Rate 77 08/08/22 21:06 Respiratory Rate 18 08/08/22 21:06 Blood Pressure 142/114 H 08/08/22 21:06 Oxygen Delivery Method 08/08/22 21:06 Pulse Rate 78 08/08/22 23:21 Respiratory Rate 16 08/08/22 23:21 Blood Pressure 108/70 08/08/22 23:21 Pulse Oximetry 97 08/08/22 23:21 Oxygen Delivery Method 08/08/22 23:21 Medical Decision Making MDM Narrative Medical decision making narrative: 1. Left humeral fracture-patient has what appears to be a 2 cm fracture fragment along the proximal humerus. There did not appear evidence of this from May of 2022. Patient notes frequent falls. I would suspect that this may be subacute. Patient is able to move shoulder but is requesting shoulder immobilizer. Would have her follow up with her orthopedic for recheck. Will send her with a disc of the images. I stated that she could take the pain medications that she has at home as she would just received a large amount of oxycodone on 07/27/22. I did talk about immobilizing her shoulder causing worry in regards to her balance. She states that she has worn immobilizers before and it does not appear to worsen her balance. 2. Bilateral soft tissue injury need-may ice and use pain medications as directed. 3. Disposition-home with a friend. Medical Records Medical records reviewed: Yes I reviewed the patient's medical records Imaging Data Shoulder x-ray: Attestation: I have reviewed the pertinent imaging results. Radiologist's impression: 1. There is a ill-defined periprostatic fracture fragment along the superior lateral aspect of the proximal humerus measuring 2 cm. This may represent a subacute or chronic fracture deformity and correlation with physical exam for focal tenderness in this region is recommended to exclude an acute fracture. Right knee x-ray: Attestation: I have reviewed the pertinent imaging results. My impression: No acute findings Radiologist's impression: Bone: No acute fractures or aggressive bone lesions are identified. Joint: The patient is status post a total knee arthroplasty with patellar resurfacing. No radiographic evidence of asymmetric polyethylene wear, prosthetic loosening or infection is seen. No significant knee effusion is seen. Soft tissue: Unremarkable. No radiopaque foreign bodies are seen. IMPRESSION: 1. No acute fractures or aggressive bone lesions are identified. Left knee x-ray: Attestation: I have reviewed the pertinent imaging results. My impression: No acute fractures Radiologist's impression: ne: No acute fractures or aggressive bone lesions are identified. Joint: The patient is status post a total knee arthroplasty with patellar resurfacing. No radiographic evidence of asymmetric polyethylene wear, prosthetic loosening or infection is seen. No significant knee effusion is seen. Soft tissue: Unremarkable. No radiopaque foreign bodies are seen. IMPRESSION: 1. No acute fractures or aggressive bone lesions are identified. Discharge Plan Discharge Clinical Impression: Soft tissue injury of right knee, Soft tissue injury of left knee, Injury of shoulder, left Patient Disposition: Home, Self-Care Condition: Unchanged Additional Instructions: Pain medications as directed by your doctor. Left arm immobilizer. Follow-up with your orthopedic surgeon. We will provide you a copy of today's x-rays of your shoulder. Caution when ambulating and moving about so that you do not fall again. Return to the emergency room as needed. Prescriptions: No Action esomeprazole magnesium 40 mg capsule,delayed release(DR/EC) 40 mg PO DAILY ropinirole 2 mg tablet 2 mg PO .Bedtime magnesium gluconate 27.5 mg magne- sium (500 mg) tablet 27.5 mg PO DAILY cholecalciferol (vitamin D3) 125 mcg (5,000 unit) tablet 5,000 unit PO DAILY cyanocobalamin (vitamin B-12) 2,500 mcg tablet 5,000 mcg PO DAILY oxycodone 5 mg tablet 5 mg PO QID diclofenac sodium 1 % gel 2 g topical diazepam [Valium] 5 mg tablet 5 mg PO BID PRN (Reason: anxiety) Qty: 60 0RF lamotrigine 200 mg tablet 200 mg PO BID Qty: 60 12RF acetaminophen 650 mg tablet extended release 1,300 mg PO .Every 8 Hours Qty: 180 12RF valacyclovir 500 mg tablet 500 mg PO DAILY Qty: 90 3RF aspirin 81 mg tablet,delayed release (DR/EC) 81 mg PO QDAY Qty: 90 3RF bupropion HCl 300 mg tablet extended release 24 hr 300 mg PO QDAY Qty: 90 3RF cetirizine [Zyrtec] 10 mg tablet 10 mg PO QDAY Qty: 90 3RF pregabalin 150 mg capsule 150 mg PO BID Qty: 120 2RF Rx Instructions: Total dose 450 mg BID pregabalin 300 mg capsule 300 mg PO BID Qty: 120 2RF Rx Instructions: Total dose 450 mg BID albuterol sulfate [Ventolin HFA] 90 mcg/actuation HFA aerosol inhaler 2 puff inhalation Q6H PRN (Reason: shortness of breath or wheezing) Qty: 8.5 2RF quetiapine 50 mg tablet 50 mg PO .Bedtime Qty: 30 5RF rizatriptan 10 mg tablet 10 mg PO ONCE PRN (Reason: migraine headache) Qty: 10 5RF Rx Instructions: TAKE ONE TAB AT ONSET OF HEADACHE, MAY REPEAT Q2H PRN, MAX 30 MG/24 HRS sumatriptan 5 mg/actuation spray,non-aerosol 5 mg intranasal ONCE PRN (Reason: migraine headache) Qty: 6 5RF Rx Instructions: 1-2 SPRAYS IN ONE NOSTRIL AT ONSET OF HEADACHE, MAY REPEAT Q2H PRN, MAX 4 SPRAYS/24 HRS tizanidine 4 mg tablet 4 mg PO Q8H PRN (Reason: muscle spasticity) Qty: 30 0RF Follow Up/Referrals: Clemente Blackwell MD [Primary Care Provider] - Stand Alone Forms: [facility] Info Instructions
--- NOTE | 2022-08-08 22:01 | CRLHL7_ITS ---
For Patients: As a result of the Century Cures Act, medical imaging exams and procedure reports are released immediately into your electronic medical record. You may view this report before your referring provider. If you have questions, please contact your health care provider. INDICATION: Trauma, shoulder pain, injury TECHNIQUE: Shoulder radiograph 3 views left COMPARISON: 06/14/2022 FINDINGS: Bone: There is a ill-defined periprostatic fracture fragment along the superior lateral aspect of the proximal humerus measuring 2 cm. Joint: A left reverse shoulder arthroplasty is noted. Posterior spinal fusion of the cervical thoracic junction is partially visualized. The acromioclavicular joint is unremarkable. Soft tissue: Unremarkable. No radiopaque foreign bodies are seen. IMPRESSION: 1. There is a ill-defined periprostatic fracture fragment along the superior lateral aspect of the proximal humerus measuring 2 cm. This may represent a subacute or chronic fracture deformity and correlation with physical exam for focal tenderness in this region is recommended to exclude an acute fracture. Dictated by Will Max MD @ 08/08/2022 10:57:10 PM Dictated by: Will Max MD @ 08/08/2022 22:57:14 (Electronically Signed)
--- NOTE | 2022-08-08 22:01 | CRLHL7_ITS ---
For Patients: As a result of the Cures Act, medical imaging exams and procedure reports are released immediately into your electronic medical record. You may view this report before your referring provider. If you have questions, please contact your health care provider. INDICATION: Trauma, knee injury TECHNIQUE: Knee radiograph 3 views left COMPARISON: 11/17/2018 FINDINGS: Bone: No acute fractures or aggressive bone lesions are identified. Joint: The patient is status post a total knee arthroplasty with patellar resurfacing. No radiographic evidence of asymmetric polyethylene wear, prosthetic loosening or infection is seen. No significant knee effusion is seen. Soft tissue: Unremarkable. No radiopaque foreign bodies are seen. IMPRESSION: 1. No acute fractures or aggressive bone lesions are identified. Dictated by: Will Max MD @ 08/08/2022 22:55:32 (Electronically Signed)
--- NOTE | 2022-08-08 22:01 | CRLHL7_ITS ---
For Patients: As a result of the Cures Act, medical imaging exams and procedure reports are released immediately into your electronic medical record. You may view this report before your referring provider. If you have questions, please contact your health care provider. INDICATION: Trauma, knee injury TECHNIQUE: Knee radiograph 3 views right COMPARISON: None FINDINGS: Bone: No acute fractures or aggressive bone lesions are identified. Joint: The patient is status post a total knee arthroplasty with patellar resurfacing. No radiographic evidence of asymmetric polyethylene wear, prosthetic loosening or infection is seen. No significant knee effusion is seen. Soft tissue: Unremarkable. No radiopaque foreign bodies are seen. IMPRESSION: 1. No acute fractures or aggressive bone lesions are identified. Dictated by: Will Max MD @ 08/08/2022 22:56:01 (Electronically Signed)
--- NOTE | 2022-08-08 22:01 | ED.NURSE ---
Pt stood at bedside and used both arms well to remove over shirt off over top of head. Pt was also able to remove own jeans, asked for help from underwriter mortgage loan getting tight jeans off over ankles.
--- OUTSIDE RECORDS SUMMARY | 2022-08-08 22:50 | XMS_ITS | Continuity of Care Document ---
:1965 Author Organization [facility] Address [address] [address] [place] [address] Phone Care Team Providers Name Role Phone Nilay Perry MD Unavailable Unavailable Advance Directives Directive Yes / No Effective Date File Name No Information Encounters Encounter Practice Location Reason(s) Diagnoses Date Provider Provide rs Description For Visit Copied on Encounter [facility] No [place] FAULKNER Referring [facility] Nilay. Provider: [facility] [place] [address] [facility] [address], Fredis DILLON MD, [address], [place], [place], [facility] [address], [id number], [place], [place], [facility] [id number], [place], [address]. tel:[phone] . tel:[phone] tel:[phone] Family History Family Member Type Diagnosis Age At Onset No Information Payers Payer name Insurance type Covered libertarian ID Authorization(s ) [place] [employer] [id number] Social History Type Description Quantity Date Captured [...]
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
--- OUTSIDE RECORDS SUMMARY | 2022-08-08 22:50 | XMS_ITS | Continuity of Care Document ---
:1965 Author Organization [facility] Address [address] [place] [address] Care Team Providers Name Role Phone [facility] Unavailable Unavailable Procedures Procedure Date IMPLANT NEUROELECTRODES [...] Visit Copied on Encounter [facility] No [facility] Provider: Surgery Surgery Surgery [facility]. David, [address], [place], [place], [place] [id number], [place], [place], , [place] [id number], [address]. [place]. tel: [phone] Twin Twin No Twin Referring [address] Provider: Surgery Surgery Surgery [facility]. David, [address], [place], [place], [place] [id number], [place], [place], , [place] [id number], [address]. [place]. tel: [phone] Twin Twin No Twin [address] Provider: Surgery Surgery Surgery [facility]. Jose [address] [facility] [address], [facility], [place], [place] , [place], [id number], [place], [address]. [place] [id number], tel: [phone] tel:[phone] Family History Family Member Type Diagnosis Age At Onset No Information Payers Payer name Insurance type Covered democrat ID Authorization(s ) Medicare [id number] [facility] [id number] Social History Type Description Quantity Date Captured [...]
--- OUTSIDE RECORDS SUMMARY | 2022-08-08 22:50 | XMS_ITS | Continuity of Care Document ---
:1965 Author Organization [facility] Address [address] [place] [address] Care Team Providers Name Role Phone Mor Singleton CRNA Unavailable Unavailable Procedures Procedure Date ANESTH, HEAD/NECK/PTRUNK ANESTH PERC IMG TX SP PROC ANESTH PERC IMG TX SP PROC Advance Directives Directive Yes / No Effective Date File Name No Information Encounters Encounter Practice Location Reason(s) Diagnoses Date Provider Provide rs Description For Visit Copied on Encounter [facility] No Areli Referring [facility] Mor. Provider: Lois CISNEROS Surgery [address] [place] [address], [place] [facility] [address] [place] [id number], [facility], [place], [place], [place], [place], [id number], [id number] [place]. . tel:[phone] tel:[phone] [facility] No Banner Referring Anest[facility] -2019 Nilay. Provider: oLis CISNEROS Surgery [address] [facility], [facility] [place], [address] [id number], [id number], [facility]. [facility] tel:[phone] [place], [place], [phone] . tel:[phone] [facility] No Banner Referring Anesthesia [facility] -2019 Nilay. Provider: PA, [address] [facility] [address], [place], Endy J, [place], [place], [place], [address] [facility] [id number], [id number], John, [facility]. Denisa tel:[phone] s, [place], [id number] . tel:[phone] Family History Family Member Type Diagnosis Age At Onset No Information Payers Payer name Insurance type Covered constitution party ID Authorization(s ) Medicare MB [id number] [employer] [facility] [id number] Social History Type Description Quantity Date Captured [...]
--- OUTSIDE RECORDS SUMMARY | 2022-08-08 22:50 | XMS_ITS | Continuity of Care Document ---
:1965 Author Organization [facility] Address [address] [place] [address] Phone Care Team Providers Name Role Phone [...] rs Description For Visit Copied on Encounter [facility] No [place] Referring [facility] Information -2007 Su. Provider : Arthur [address] [place], [address], [address] [facility], [place], [place], [place], [id number], [place], [id number], . [address]. tel:[phone] tel:[phone] tel:[phone] [facility] Sun Blurred No Adalberto Referring [facility] Information -2007 Deep. Provider: Arthur, (chief [address]) [address] [facility], [address], [address], [place], [place], [place], [place], [place], [place], [id number], [place], [id number], . [address]. tel:[phone] tel:[phone] tel:[phone] Family History Family Member Type Diagnosis Age [...]
--- OUTSIDE RECORDS SUMMARY | 2022-08-08 22:51 | XMS_ITS | Continuity of Care Document ---
:1965 Author Organization [facility] Address [address] [place] [address] Phone Care Team Providers Name Role Phone [...] Description For Visit Copied on Encounter [facility] No Information Nov- ZProvider Arthritis [place] 6[address] Con[address] [place] 4 . . Rheumatolo gy, [address] [facility], [place], [place], [id number], [place] tel:[phone] [facility] TOBACCO USE Apr-1 Michele Arthritis DISORDEROBESITY 8[address] Nara. And NOSOSTEOPOROSIS NOS [address], gy, [address], [place], [id number], [place], [place]. [id number], tel:[phone] tel:[phone] [facility] Age-related Apr-0 ZProvider Arthritis [place] osteoporosis w/o 7[address] [place] current 4 . . Rheumatolo pathological gy, [address] [place] [address], [id number], [place] tel:[phone] [facility] OBESITY NOSTOBACCO Mar-2 ZProvider Arthritis USE [address] And DISORDEROSTEOPOROSI 4 . . Rheumatolo S NOSMALAISE AND gy, [address], [place], [place], [id number], [place] tel:[phone] [place] NEPTALI [place] Tobacco useObesity, Mar-2 Michele Arthritis unspecifiedAge-rela Nara. And mary osteoporosis 4 [address]o [address], gy, [address], [address] [place], [address], [place], [place], [id number], [place], [place]. [id number], tel:[phone] tel:[phone] Family History Family Member Type Diagnosis Age [...]
--- OUTSIDE RECORDS SUMMARY | 2022-08-08 22:51 | XMS_ITS | Continuity of Care Document ---
:1965 Author Organization [facility] Address [address] [place] [address] Phone Care Team Providers Name Role Phone [...] elctr each OFFICE/OUTPATIENT VISIT, EST SCS PreTrial [employer] OFFICE/OUTPATIENT VISIT, EST OFFICE/OUTPATIENT VISIT, EST [...] For Visit Copied on Encounter OFFICE VISIT, [facility] Back Pain Anxiety disorder, Ka ngas [facility] (chief unspecifiedChronic 0-202 [place]. TELEMEDICINE Pain Caterina complaint) migraine without 2 [address] [facility], aura, intractable, John, [address] without status [place], migrainosusOsteoar is, [place], Caterina, thritisPain in [id number] [place], left shoulderPain , [place]. [id number] in left hipPain in tel:+ , [place] right hipPain in [id number] tel:+ left kneePain in [id number] right kneeOther spondylosis, cervical regionOther spondylosis, lumbar regionRadiculopath y, lumbar regionPain in thoracic spineFibromyalgiaP ostlaminectomy syndrome, not elsewhere classifiedLong term (current) use of opiate analgesic OFFICE VISIT, [facility] Back Pain OsteoarthritisChro K [facility] (chief saul migraine [place]. Provide r: TELEMEDICINE Pain [employer] complaint) without aura, 2 [facility], intractable, John, Will J, [address] without status [place] [address] John, migrainosusAnxiety is, [place], John, Caterina, disorder, [id number] [place], unspecifiedPain in , [place]. s, [place] , [id number] left shoulderPain tel: [phone] , [place] in left hipPain in 16635460 . tel: right hipPain in tel:2 [phone] left kneePain in 306348 5 right kneeOther spondylosis, cervical regionOther spondylosis, lumbar regionRadiculopath y, lumbar regionPain in thoracic spinePostlaminecto my syndrome, not elsewhere classifiedFibromya lgiaLong term (current) use of opiate analgesic OFFICE VISIT, [facility] Back Pain Pain in left [facility] (chief shoulderAnxiety [place]. TELEMEDICINE Pain Caterina complaint) disorder, [address] Clinic, unspecifiedChronic John, [address] migraine without [place], aura, intractable, is, [place], Caterina, without status [id number] [place], migrainosusOsteoar , [place]. [id number] thritisPain in tel: , US right hipPain in 70352533 tel: left hipPain in 33730507 left kneePain in right kneeOther spondylosis, cervical regionOther spondylosis, lumbar regionRadiculopath y, lumbar regionPain in thoracic spinePostlaminecto my syndrome, not elsewhere classifiedFibromya lgiaLong term (current) use of opiate analgesic OFFICE VISIT, [facility] Back Pain Pain in left [facility] (chief hipAnxiety [place]. TELEMEDICINE Pain [employer] complaint) disorder, 2 [address] [facility], unspecifiedChronic John, [address] migraine without [place] John, aura, intractable, is, [place], Caterina, without status [id number] [place], migrainosusOsteoar , [place]. [id number] thritisPain in tel: , US left shoulderPain [id number] tel: in right hipPain 85639272 in left kneePain in right kneeOther spondylosis, cervical regionOther spondylosis, lumbar regionRadiculopath y, lumbar regionPain in thoracic spineFibromyalgiaP ostlaminectomy syndrome, not elsewhere classifiedLong term (current) use of opiate analgesic [facility] No Information [facility] [place]. Pain [employer] 2 [address] [facility], John, [address] [place], is, [place], Caterina, [id number] [place], , [place]. [id number] tel: , [place] [id number] tel: [phone] OFFICE/OUTPAT [facility] Back Pain Anxiety disorder, Ka [facility] Referring IENT VISIT, [facility] (chief unspecifiedChronic [place] . Provider: EST Pain [employer] complaint) migraine without 2 [address] [facility], aura, intractable, John, Will J, [address] without status [place] [address] John, migrainosusOsteoar is, [place], John, Caterina, thritisPain in [id number] [place], left shoulderPain , [place]. s, [place], [id number] in left hipPain in tel: [phone] , US right hipPain in 83682683 . tel: left kneePain in tel:2 [phone] right kneeOther [id number] spondylosis, cervical regionOther spondylosis, lumbar regionRadiculopath y, lumbar regionPain in thoracic spineFibromyalgiaP ostlaminectomy syndrome, not elsewhere classifiedLong term (current) use of opiate analgesic OFFICE VISIT, [facility] Back Pain Chronic migraine Jan- Jens gas [facility] (chief without aura, [place]. TELEMEDICINE Pain [employer] complaint) intractable, [address] [facility], without status John, [address] migrainosusAnxiety [place], disorder, [place], [place], [employer], unspecifiedOsteoar [id number] [place], thritisPain in , US. [id number] left shoulderPain tel: , [place] in right hipPain [id number] tel: in left hipPain in 64758412 right kneePain in left kneeOther spondylosis, cervical regionOther spondylosis, lumbar regionRadiculopath y, lumbar regionPain in thoracic spineFibromyalgiaP ostlaminectomy syndrome, not elsewhere classifiedLong term (current) use of opiate analgesic [facility] No Information [facility] [place]. Provider: Pain Caterina 2 [address] [facility], John Will J, [address] [place] [address] John, is, [place], John, [employer], [id number] [place], , [place]. s, [place], [id number] tel: [phone] , [place] [id number] . tel: tel: [phone] OFFICE VISIT, [facility] Back Pain Radiculopathy, [facility] (chief lumbar [place]. TELEMEDICINE Pain Caterina complaint) regionPostlaminect 2 7235 [facility], marquis syndrome, not John, [address] elsewhere [place] John, classifiedPain in is, [place], [employer], left hipAnxiety [id number] [place], disorder, , US. [id number] unspecifiedPain in tel: , [place] thoracic [id number] tel: spineOsteoarthriti [phone] sChronic migraine without aura, intractable, without status migrainosusPain in right hipPain in left shoulderPain in right kneePain in left kneeFibromyalgiaOt her spondylosis, lumbar regionOther spondylosis, cervical regionLong term (current) use of opiate analgesicEncounter for therapeutic drug level monitoring OFFICE VISIT, [facility] Back Pain Radiculopathy, [facility] (chief lumbar [place]. Provider: TELEMEDICINE Pain [employer] complaint) regionPostlaminect 2 [address] [facility], marquis syndrome, not John, Will J , [address] elsewhere [place] [address] John classifiedPain in is, [place], John, Caterina, left hipAnxiety [id number] [place], disorder, , [place]. s, [place], [id number] unspecifiedPain in tel: [phone] , [place] thoracic [id number] . tel: spineOsteoarthriti tel : [phone] sChronic migraine 92548 45 without aura, intractable, without status migrainosusPain in right hipPain in left shoulderPain in right kneePain in left kneeFibromyalgiaOt her spondylosis, lumbar regionOther spondylosis, cervical regionLong term (current) use of opiate analgesic OFFICE VISIT, [facility] Back Pain Radiculopathy, [facility] Referring [facility] (chief lumbar [place]. Provider: TELEMEDICINE Pain Caterina complaint) regionPostlaminect 2 7235 [facility], [place], marquis syndrome, not Endy Lopez J , [address] elsewhere [place] [address] John classifiedPain in is, [place], John, [employer], left hipAnxiety [id number] [place], disorder, , [place]. s, [place], 825376030 unspecifiedPain in tel: [phone] , [place] thoracic [id number] . tel: spineOsteoarthriti tel : [phone] sChronic migraine 51541 45 without aura, intractable, without status migrainosusPain in right hipPain in left shoulderPain in right kneePain in left kneeFibromyalgiaOt her spondylosis, lumbar regionLong term (current) use of opiate analgesicOther spondylosis, cervical region OFFICE VISIT, [facility] Back Pain Radiculopathy, [facility] (chief lumbar [place]. TELEMEDICINE Pain [employer] complaint) regionPostlaminect 1 [address] [facility], marquis syndrome, not John, [address] elsewhere [place] John classifiedPain in is, [place], Caterina, left hipAnxiety [id number] [place], disorder, , US. 125262659 unspecifiedPain in tel: , [place] thoracic [id number] tel: spineOsteoarthriti [phone] sChronic migraine without aura, intractable, without status migrainosusPain in right hipPain in left shoulderPain in right kneePain in left kneeFibromyalgiaOt her spondylosis, lumbar regionLong term (current) use of opiate analgesicOther spondylosis, cervical region OFFICE/OUTPAT [facility] Back Pain Other spondylosis, shlomo Referring IENT VISIT, [facility] (chief cervical [place]. Provide r: EST Pain [employer] complaint) regionRadiculopath 1 [address] [facility], y, lumbar John, Will J, [address] regionPostlaminect [place] [address] John, marquis syndrome, not is, [place], John, [employer], elsewhere [id number] [place], classifiedPain in , [place]. s, MN, 196906249 left hipAnxiety tel: [phone] , [place] disorder, 52550500 . tel: unspecifiedPain in tel :2 [phone] thoracic 1872896 spineOsteoarthriti sChronic migraine without aura, intractable, without status migrainosusPain in right hipPain in left shoulderPain in right kneePain in left kneeFibromyalgiaOt her spondylosis, lumbar regionLong term (current) use of opiate analgesic OFFICE VISIT, [facility] Back Pain Other spondylosis, anglucrecia EST [facility] (chief cervical [place]. TELEMEDICINE Pain Caterina complaint) regionRadiculopath 1 [address] [facility], y, lumbar John, [address] regionPostlaminect [place] John, marquis syndrome, not is, [place], [employer], elsewhere [id number] [place], classifiedPain in , US. 306491086 left hipAnxiety tel: , [place] disorder, [id number] tel: unspecifiedPain in 94285544 thoracic spineOsteoarthriti sChronic migraine without aura, intractable, without status migrainosusPain in right hipPain in left shoulderPain in right kneePain in left kneeFibromyalgiaOt her spondylosis, lumbar regionLong term (current) use of opiate analgesic OFFICE VISIT, [facility] Back Pain Other spondylosis, Sep- K shlomo Referring [facility] (chief cervical [place]. Provider: TELEMEDICINE Pain Caterina complaint) regionRadiculopath 1 [address] [facility], y, lumbar John, Will J, [address] regionPostlaminect [place] [address] John, marquis syndrome, not is, [place], John, [employer], elsewhere [id number] [place], classifiedPain in , [place]. s, MN, 496795953 left hipAnxiety tel: [phone] , [place] disorder, 58537608 . tel: unspecifiedPain in tel : [phone] thoracic [phone] spineOsteoarthriti sChronic migraine without aura, intractable, without status migrainosusPain in right hipPain in left shoulderPain in right kneePain in left kneeFibromyalgiaOt her spondylosis, lumbar regionLong term (current) use of opiate analgesic [facility] Encounter for Mario Referr ing [facility] therapeutic drug [place]. Pro vider: Pain [employer] level 1 7235 [facility], [place], monitoringLong John, Will J, [address] term (current) use [place] [address] John, of opiate is, [place], John, [employer], analgesic [id number] [place], , [place]. s, [place], 577010367 tel: [phone] , [place] [id number] . tel: tel: [phone] OFFICE/OUTPAT [facility] Back Pain Other spondylosis, Aug-0 K shlomo Referring IENT VISIT, [facility] (chief lumbar [place]. Provider : EST Pain Caterina complaint) regionFibromyalgia 1 [address] [facility], Pain in left John, Will J, [address] kneePain in right [place] 72 [address] John, kneePain in left is, [place], John, [employer], shoulderPain in [id number] [place], right hipChronic , [place]. s, [place], 209179342 migraine without tel:+ [phone] , [place] aura, intractable, 21955159 . tel: without status tel:+ [phone] migrainosusOsteoar 8412 345 thritisPain in thoracic spineAnxiety disorder, unspecifiedPain in left hipPostlaminectomy syndrome, not elsewhere classifiedRadiculo shane, lumbar regionOther spondylosis, cervical regionLong term (current) use of opiate analgesicEncounter for therapeutic drug level monitoring OFFICE VISIT, [facility] Back Pain Other spondylosis, [facility] Referring [facility] (chief lumbar [facility]. Provider: TELEMEDICINE Pain Caterina complaint) regionFibromyalgia 1 [address] [facility], Pain in left John, Will J, [address] kneePain in right [place] 72 [address] John, kneePain in left is, [place], John, [employer], shoulderPain in [id number] [place] f[place], right hipChronic , [place]. s, MN, 418769798 migraine without tel:+ [phone] , [place] aura, intractable, 40076505 . tel: without status tel: [phone] migrainosusOsteoar 8412 345 thritisPain in thoracic spineAnxiety disorder, unspecifiedPain in left hipPostlaminectomy syndrome, not elsewhere classifiedRadiculo shane, lumbar regionOther spondylosis, cervical regionLong term (current) use of opiate analgesic OFFICE VISIT, [facility] Back Pain Other spondylosis, Kanu0 K [facility] Referring [facility] (chief lumbar [facility]. Provider: TELEMEDICINE Pain [employer] complaint) regionFibromyalgia 1 [facility] [facility], Pain in left John, Will J, [address] kneePain in right [place] 72 [address] John, kneePain in left is, [place], John, Caterina, shoulderPain in 108612012 [place], right hipChronic , [place]. s, MN, 704475012 migraine without tel:+ [phone] , [place] aura, intractable, 38704760 . tel: without status tel: [phone] migrainosusOsteoar 8412 345 thritisPain in thoracic spineAnxiety disorder, unspecifiedPain in left hipPostlaminectomy syndrome, not elsewhere classifiedRadiculo shane, lumbar regionOther spondylosis, cervical regionLong term (current) use of opiate analgesic OFFICE VISIT, [facility] Back Pain Other spondylosis, K [facility] Referring [facility] (chief lumbar 5-202 [place]. Provider: TELEMEDICINE Pain Caterina complaint) regionFibromyalgia 1 [address] [facility], Pain in left John, Will J, [address] kneePain in right [place] 72 [address] John, kneePain in left is, [place], John, Caterina, shoulderPain in [id number] [place], right hipChronic , [place]. s, MN, 721934953 migraine without tel: [phone] , [place] aura, intractable, 55770960 . tel: without status tel: [phone] migrainosusOsteoar 8412 345 thritisPain in thoracic spineAnxiety disorder, unspecifiedPain in left hipPostlaminectomy syndrome, not elsewhere classifiedRadiculo shane, lumbar regionOther spondylosis, cervical regionLong term (current) use of opiate analgesic [facility] Back Pain Other spondylosis, March- Mario Referring [facility] (chief lumbar 4-202 [place]. Provider: Pain Caterina complaint) regionFibromyalgia 1 [address] [facility], Pain in left John, Will J, [address] kneePain in right [place] [address] John, kneeChronic is, [place], John, Caterina, migraine without [id number] [place], aura, intractable, , [place]. s, [place] , [id number] without status tel: [phone] , [place] migrainosusPain in 05086116 . tel: right hipPain in tel: [phone] left shoulderPain 99703 45 in right shoulderOsteoarthr itisPain in thoracic spineAnxiety disorder, unspecifiedPain in left hipPostlaminectomy syndrome, not elsewhere classifiedRadiculo shane, lumbar regionOther spondylosis, cervical regionLong term (current) use of opiate analgesic OFFICE VISIT, [facility] Back Pain Other spondylosis, Mar-2 K angas Referring [facility] (chief lumbar [place]. Provider: TELEMEDICINE Pain Caterina complaint) regionFibromyalgia 1 [address] [facility], Pain in left John, Will J, [address] kneePain in right [place] [address] John, kneeChronic is, [place], John, [employer], migraine without [id number] [place], aura, intractable, , [place]. s, [place] , 343645811 without status tel: [phone] , [place] migrainosusPain in 24461931 . tel: right hipPain in tel:2 [phone] left shoulderPain 21962 45 in right shoulderOsteoarthr itisPain in thoracic spineAnxiety disorder, unspecifiedPain in left hipPostlaminectomy syndrome, not elsewhere classifiedRadiculo shane, lumbar regionOther spondylosis, cervical regionLong term (current) use of opiate analgesic OFFICE VISIT, [facility] Back Pain Pain in left Fe- Mario Referring [facility] (chief hipPostlaminectomy [place]. P rovider: TELEMEDICINE Pain [employer] complaint) syndrome, not 1 7235 [facility], [place], elsewhere John, Endy J, [address] classifiedRadiculo [place] [address] John, shane, lumbar is, [place], John, Caterina, regionOther [id number] [place], spondylosis, , [place]. s, [place], 657190312 cervical tel: [phone] , [place] regionOther 24058581 . tel: spondylosis, tel: 2 [phone] lumbar 2515835 regionFibromyalgia Pain in left kneePain in right kneeChronic migraine without aura, intractable, without status migrainosusPain in right hipPain in left shoulderPain in right shoulderOsteoarthr itisPain in thoracic spineAnxiety disorder, unspecifiedLong term (current) use of opiate analgesic OFFICE VISIT, [facility] Back Pain Pain in left Mario Referring [facility] (chief hipPostlaminectomy [place]. P rovider: TELEMEDICINE Pain Caterina complaint) syndrome, not 1 [address] [facility], elsewhere Endy Lopez J, [address] classifiedRadiculo [place] [address] John, shane, lumbar is, [place], John, Caterina, regionOther [id number] [place], spondylosis, , [place]. s, [place], 648665717 cervical tel:+ [phone] , [place] regionOther 44662430 . tel: spondylosis, tel: 2 [phone] lumbar 8299821 regionFibromyalgia Pain in left kneePain in right kneeChronic migraine without aura, intractable, without status migrainosusPain in right hipPain in left shoulderPain in right shoulderOsteoarthr itisPain in thoracic spineAnxiety disorder, unspecifiedLong term (current) use of opiate analgesic OFFICE VISIT, [facility] Pain in left Mario Referring [facility] (chief hipPostlaminectomy [place]. P rovider: TELEMEDICINE Pain Caterina complaint) syndrome, not 0 [address] [facility], elsewhere Endy Lopez J, [address] classifiedRadiculo [facility] [address] John, shane, lumbar is, [place], John, [employer], regionOther [id number] [place], spondylosis, , [place]. s, [place], 936359867 cervical tel: [phone] , [place] regionOther 97956401 . tel: spondylosis, tel: 2 [phone] lumbar 3360259 regionFibromyalgia Pain in left kneePain in right kneeChronic migraine without aura, intractable, without status migrainosusPain in right hipPain in left shoulderPain in right shoulderOsteoarthr itisPain in thoracic spineAnxiety disorder, unspecifiedLong term (current) use of opiate analgesic OFFICE VISIT, [facility] Back Pain Postlaminectomy [facility] Referring [facility] (chief syndrome, not [place]. Provid er: TELEMEDICINE Pain Caterina complaint) elsewhere 0 7235 [facility], classifiedRadiculo John Will J, [address] shane, lumbar [place] 7235 [facility] John, regionOther is, [place], John, [employer], spondylosis, [id number] [place], cervical , [place]. s, [place], 423676447 regionOther tel:+ [phone] , [place] spondylosis, 38539433 . tel: lumbar tel:+ [phone] regionFibromyalgia 8412 345 Pain in left kneePain in right kneeChronic migraine without aura, intractable, without status migrainosusPain in left hipPain in right hipPain in left shoulderPain in right shoulderOsteoarthr itisPain in thoracic spineAnxiety disorder, unspecifiedLong term (current) use of opiate analgesic OFFICE/OUTPAT [facility] Back Pain Postlaminectomy Oct- Gonzalez as Referring IENT VISIT, [facility] (chief syndrome, not [place]. Pr ovider: EST Pain Caterina complaint) elsewhere 0 [address]235 [facility], classifiedRadiculo Endy Lopez J, [address] shane, lumbar [place] 7235 [facility] John, regionOther is, [place], John, Caterina, spondylosis, [id number] [place], cervical , [place]. s, [place], [id number] regionOther tel:+ [phone] , [place] spondylosis, 67607360 . tel: lumbar tel: [phone] regionFibromyalgia 8412 345 Pain in left kneePain in right kneeChronic migraine without aura, intractable, without status migrainosusPain in left hipPain in right hipPain in left shoulderPain in right shoulderOsteoarthr itisPain in thoracic spineAnxiety disorder, unspecifiedLong term (current) use of opiate analgesicEncounter for therapeutic drug level monitoring OFFICE VISIT, [facility] Back Pain Postlaminectomy Sep-2 Gonzalez as Referring EST [facility] (chief syndrome, not [place]. Provid er: TELEMEDICINE Pain Caterina complaint) elsewhere 0 7235 [facility], classifiedRadiculo John, Will J, [address] shane, lumbar [place] [address] John, regionOther is, [place], John, Caterina, spondylosis, [id number] [place], cervical , [place]. s, [place], 592928552 regionOther tel: [phone] , [place] spondylosis, [id number] . tel: lumbar regionLong tel: [phone] term (current) use 8412 345 of opiate analgesicAnxiety disorder, unspecifiedFibromy algiaPain in left kneePain in right kneeChronic migraine without aura, intractable, without status migrainosusPain in left hipPain in right hipPain in left shoulderPain in right shoulderOsteoarthr itisPain in thoracic spine OFFICE VISIT, [facility] Back Pain Postlaminectomy Yeimy en Referring [facility] (chief syndrome, not [place]. Provid er: TELEMEDICINE Pain [place] complaint) elsewhere 0 [address] [facility] [address] Jermaine l J, [address] shane, lumbar 11 Umair [address] John, regionOther 100, John, [employer], spondylosis, [place], cervical e, [place], s, [place], 713142305 regionOther [id number] [phone] , [place] spondylosis, , [place]. . tel: lumbar regionLong tel: te l:+ [phone] term (current) use [id number] of opiate analgesicAnxiety disorder, unspecified [facility] Postlaminectomy RN RN. Refe [facility] syndrome, not [address] Prov ider: Pain Caterina elsewhere 0 [facility], classified [place] Will J, [address] is, [place], [address] John, [id number] John, [employer], , [place]. [place], tel: s, [place], [id number] [phone] , [place] . tel: tel: [phone] [facility] Postlaminectomy David Ref [facility] syndrome, not 4-202 Gi. Provider: Pain Center elsewhere 0 7235 [facility], [place], classified JohnEndy J, [address] [place] [address] John, is, [place], Chandana Lopeza, [id number] [place], , [place]. s, [place], 237171770 tel: [phone] , [place] 93290439 . tel: tel:+2 [id number] [id number] OFFICE VISIT, [facility] Back Pain Postlaminectomy Kanga s Referring [facility] (chief syndrome, not [place]. Provider: TELEMEDICINE Pain complaint) elsewhere 0 7235 [facility], classifiedRadiculo JohnEndy J, 7235 Oh[place] shane, lumbar [place] 7235 O hms John, regionOther is, [place], John, [employer], spondylosis, [id number] [place], cervical , [place]. [place], [place], 681282584 regionOther tel: [phone] , [place] spondylosis, [id number] . tel: lumbar regionLong tel: [phone] term (current) use [id number] of opiate analgesicAnxiety disorder, unspecified [facility] Postlaminectomy Mario Refe [facility] syndrome, not [place]. Provid er: Pain Caterina elsewhere 0 7235 [facility], [place], classified JohnEndy J, 7235 Ohms [place] 7235 Ohms John, is, [place], John [employer], [id number] [place], , [place]. [place], [place], [address] tel: [phone] , [place] [id number] . tel: tel:[phone] [facility] Postlaminectomy Kokayeff Ref [facility] Surgery syndrome, not Gi. Provider: Pain Center elsewhere 0 7235 [facility], [place], classified Endy Lopez J, 7235 [address] [place] 7235 Ohms John, is, [place], John, Caterina, [id number] [place], , [place]. [place], [place], 001893195 tel: [phone] , [place] [id number] . tel: tel:[phone] OFFICE VISIT, [facility] Back Pain Postlaminectomy Michael s Referring [facility] (chief syndrome, not [place]. Provider: TELEMEDICINE Pain complaint) elsewhere 0 7235 [facility], classifiedRadiculo Endy Lopez J, 7235 Oh[address] shane, lumbar [place] 7235 O [facility] John, regionLong term is, [place], John, [employer], (current) use of [id number] [place], opiate , [place]. [place], [place], 725001151 analgesicOther tel: [phone] , [place] spondylosis, [id number] . tel: cervical tel: [phone] regionOther [id number] spondylosis, lumbar region [facility] No Information [facility] [place]. Pain Caterina 0 7235 [facility], John, 7235 [facility] [place], [place], [place], [employer], [id number] [place], , [place]. [address] tel: , [place] [id number] tel: [phone] OFFICE VISIT, [facility] Back Pain CervicalgiaPostlam K shlomo Referring [facility] (chief inectomy syndrome, [place]. P rovider: TELEMEDICINE Pain [employer] complaint) not elsewhere 0 7235 [facility], [place], classifiedRadiculo Endy Lopez J, 7235 [address] shane, lumbar [place] 7235 O [facility] John, regionLong term is, [place], John, [employer], (current) use of [id number] [place], opiate analgesic , [place]. [place], [place], 005576331 tel: [phone] , [place] [id number] . tel: tel:[phone] Psych Dx Eval [facility] Pain disorder with Juliana e [facility] related Maikel Provider: Pain psychological 0 Peg. 7235 [facility] [place], factorsBipolar Ohil Will J, 7235 Ohil disorder John, 7235 [facility] John, [place], Caterina, is, [place], [place], [id number] s, [place], [address] , [place]. [address] , [place] tel: . tel: [phone] tel: [phone] OFFICE VISIT, [facility] Back Pain Postlaminectomy Apr-2 Michael s Referring [facility] (chief syndrome, not [place]. Provider: TELEMEDICINE Pain complaint) elsewhere 0 7235 [facility], classifiedLong John Endy Jorge, 7235 Oh[address] term (current) use [place] 7 235 Ohms John, of opiate is, [place], John, [employer], analgesicRadiculop [id number] [place], athy, lumbar , [place]. [place], [place], 422952141 regionCervicalgia tel: [phone] , [place] [id number] . tel: tel: [phone] [facility] No Information Jan- [facility] Peter. Pain [employer] 0 7235 [facility], John, 7235 Ohil [place], is, [place], [employer], [id number] [place], , [place]. 375113891 tel: , [place] [id number] tel: [phone] OFFICE/OUTPAT [facility] Back Pain Postlaminectomy Jan- Gonzalez as Referring IENT VISIT, [facility] (chief syndrome, not [place]. Pr ovider: EST Pain Caterina complaint) elsewhere 0 7235 [facility], [place], classifiedLong Endy Lopez, 7235 Ohil term (current) use [place] 7 235 Ohms John, of opiate is, [place], John, [employer], analgesicCervicalg [id number] [place], iaRadiculopathy, , [place]. [place], [place], 067985970 lumbar region tel: [phone] , [place] [id number] . tel: tel:[phone] [facility] Postlaminectomy Mar- Garcia Refe rring [facility] Surgery syndrome, not Viry. Provider: Pain Center elsewhere 0 7235 [facility], [place], classified John, Will J, 7235 [address] [place] 7235 Ohms John, is, [place], Caterina Lopez, [id number] [place], , [place]. [place], [place], [address]0583 tel:+ [phone] , [place] [id number] . tel: tel:[phone] OFFICE/OUTPAT [facility] Back Pain Postlaminectomy Gonzalez as Referring IENT VISIT, [facility] (chief syndrome, not 8 [place]. Pr ovider: EST Pain Caterina complaint) elsewhere 0 7235 [facility], [place], classifiedCervical John, Will J, 7235 Ohil giaRadiculopathy, [place] 72 35 Ohil John, lumbar regionLong is, [place], Caterina Lopez, term (current) use [id number] [place], of opiate , [place]. [place], [place], 915557588 analgesicCarrier tel: [phone] , [place] of Methicillin [id number] . tel: susceptible tel:2 [phone] Staphylococcus 6758132 aureusCarrier of Methicillin resistant Staph aureusMethicillin resis staph infct causing diseases classd elsMelissacounter for therapeutic drug level monitoring [facility] Postlaminectomy [facility] syndrome, not [place]. Pain Caterina elsewhere 0 7235 [facility], classified John, 7235 [address] [place] John, is, [place], Caterina, [id number] [place], , [place]. 152472397 tel:+ , [place] [id number] tel: [phone] OFFICE/OUTPAT [facility] Back Pain Radiculopathy, Kanga s Referring IENT VISIT, [facility] (chief lumbar [place]. Provider : EST Pain [employer] complaint) regionPostlaminect 0 7235 [facility], [place], marquis syndrome, not John, Will J , 7235 Ohms elsewhere [place] 7235 Ohil John, classifiedCervical is, [place], Caterina Lopez, giaLong term [id number] [place], (current) use of , [place]. [place], [place], 927182500 opiate analgesic tel: [phone] , [place] [id number] . tel: tel:[phone] OFFICE/OUTPAT [facility] Back Pain Radiculopathy, Kanga s Referring IENT VISIT, [facility] (chief lumbar 7-201 [place]. Provider : EST Pain [employer] complaint) regionCervicalgiaL 9 35 Ohil [facility], beryl term (current) Endy Lopez J, 7235 Oh[address] use of opiate [place] 7235 O hms John, analgesicPostlamin is, [place], John, Caterina, ectomy syndrome, 300083353 [place], not elsewhere , [place]. [place], [place], 770073880 classified tel: [phone] , [place] [id number] . tel: tel: [phone] OFFICE/OUTPAT [facility] Back Pain Chronic pain Referring IENT VISIT, [facility] (chief syndromePostlamine 6-201 [place] . Provider: EST Pain [employer] complaint) ctomy syndrome, 9 35 [facility], not elsewhere Endy Lopez J, 7235 Oh[address] classifiedRadiculo [place] 7 235 Ohms John, shane, lumbar is, [place], John, [employer], regionCervicalgiaL [id number] [place], beryl term (current) , [place]. [place], [place] , 232381801 use of opiate tel: [phone] , [place] analgesic 59277384 . 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 Provider: EST Pain [employer] complaint) opiate 9 35 [facility], analgesicPostlamin JohnEndy J, 7235 Ohms ectomy syndrome, [place] 723 5 Ohms John, not elsewhere is, [place], John, Caterina, classifiedRadiculo [id number] [place], shane, lumbar , [place]. [place], [place], 688293327 regionCervicalgia tel: [phone] , [place] 91495875 . tel: tel:[phone] OFFICE/OUTPAT [facility] Back Pain Postlaminectomy Carlos as Referring IENT VISIT, [facility] (chief syndrome, not 0-201 [place]. Pr ovider: EST Pain [employer] complaint) elsewhere 9 7235 [facility], [place], classifiedLow back John, Will J, 7235 [address] painCervicalgiaLon [place] 7 235 Ohms John, g term (current) is, [place], John, [employer], use of opiate 904140004 [place], analgesic , [place]. [place], [place], 704472704 tel:[phone] , [place] 61421666 . tel: tel:2 [phone] OFFICE/OUTPAT [facility] Back Pain Postlaminectomy Carlos as Referring IENT VISIT, [facility] (chief syndrome, not 0-201 [place]. Pr ovider: EST Pain [employer] complaint) elsewhere 9 7235 [facility], [place], classifiedLow back John, Will J, 7235 [address] painCervicalgiaLon [place] 7 235 Ohms John, g term (current) is, [place], John, [employer], use of opiate [id number] [place], analgesic , [place]. [place], [place], 597055002 tel:[phone] , [place] 64611272 . tel: tel:[phone] OFFICE/OUTPAT [facility] Back Pain Postlaminectomy Carlos as Referring IENT VISIT, [facility] (chief syndrome, not 1-201 [place]. Pr ovider: EST Pain [employer] complaint) elsewhere 9 7235 [facility], [place], classifiedLow back John, Will J, 7235 [address] painCervicalgiaEnc [place] 7 235 Ohms more Lopezer for is, [place], John, [employer], therapeutic drug [id number] [place], level , [place]. [place], [place], 129280965 monitoringLong tel: [phone] , [place] term (current) use 83344403 . tel: of opiate tel:2 [phone] analgesic [id number] OFFICE/OUTPAT [facility] Back Pain Postlaminectomy March- Gonzalez as Referring IENT VISIT, [facility] (chief syndrome, not 1-201 [place]. Pr ovider: EST Pain Caterina complaint) elsewhere 9 7235 [facility], [place], classifiedLow back John, Will J, 7235 Oh[address] painCervicalgiaLon [place] 7 235 Ohms John, g term (current) is, [place], John, Caterina, use of opiate 770615657 [place], analgesic , [place]. [place], [place], 907719053 tel: [phone] , [place] [id number] . tel: tel:[phone] OFFICE/OUTPAT [facility] Back Pain Postlaminectomy Feb-0 Garcia Referring IENT VISIT, [facility] (chief syndrome, not 2-201 Viry. Pr ovider: EST Pain Caterina complaint) elsewhere 9 7235 [facility], [place], classifiedRadiculo John, Will J, 7235 Ohil shane, lumbar [place] 7235 O hms John, regionCervicalgiaL is, [place], John, [employer], beryl term (current) [id number] [place], use of opiate , [place]. [place], [place], 116537784 analgesic tel:[phone] , [place] [id number] . tel: tel:[phone] OFFICE/OUTPAT [facility] Back Pain Chronic pain Nov- Mario Referring IENT VISIT, [facility] (chief syndromeRadiculopa 3-201 [place] . Provider: EST Pain [employer] complaint) thy, lumbar 9 7235 [facility], [place], regionLow back John, Will J, 7235 Ohms painLong term [place] 7235 O hms John, (current) use of is, [place], John, [employer], opiate analgesic [id number] [place], , [place]. [place], [place], 268189045 tel: [phone] , [place] 82832643 . tel: tel:[phone] [facility] Postlaminectomy Nov- Mario Refe [facility] syndrome, not 3-201 [place]. Provid er: Pain Caterina elsewhere 9 7235 [facility], [place], classified Endy Lopez, 7235 Oh[address] [place] 7235 Ohms John, is, [place], Caterina Lopez, [id number] [place], , [place]. [place], [place], 405434854 tel: [phone] , [place] 56580631 . tel: tel:[phone] OFFICE/OUTPAT [facility] Back Pain Radiculopathy, Kanga s Referring IENT VISIT, [facility] (chief lumbar regionLow [place]. Provider: EST Pain Caterina complaint) back painLong term 8 7235 [facility], [place], (current) use of Endy Lopez, 7235 Oh[address] opiate analgesic [place] 723 5 Ohms John, is, [place], Caterina Lopez, [id number] [place], , [place]. [place], [place], 948604815 tel: [phone] , [place] [id number] . tel: tel:[phone] [facility] Postlaminectomy Sep- Mario Refe [facility] syndrome, not 1-201 [place]. Provid er: Pain [employer] elsewhere 8 7235 [facility], [place], classified Endy Lopez, 7235 Ohms [place] 7235 Ohms John, is, [place], Caterina Lopez, [id number] [place], , [place]. [place], [place], 203057888 tel: [phone] , [place] 10175276 . tel: tel:[phone] [facility] Postlaminectomy Aug- Garcia Refe [facility] Surgery syndrome, not 5-201 Viry. Provider: Pain Center elsewhere 8 7235 [facility], [place], classified Endy Lopez, 7235 [address] [place] 7235 Ohms John, is, [place], Caterina Lopez, [id number] [place], , [place]. [place], [place], 459729877 tel: [phone] , US [id number] . tel: tel: [phone] OFFICE/OUTPAT [facility] Back Pain Postlaminectomy Oct-2 Gonzalez as Referring IENT VISIT, [facility] (chief syndrome, not 2-201 [place]. Pr ovider: EST Pain [employer] complaint) elsewhere 8 7235 [facility], [place], classifiedRadiculo Endy Lopez, 7235 [facility] shane, lumbar [place] 7235 O hms John, regionLow back is, [place], John, Caterina, pain [id number] [place], , [place]. [place], [place], 804630677 tel: [phone] , US 66643161 . tel: tel: [phone] [facility] Postlaminectomy Oct-0 Mario Refe [facility] syndrome, not 1-201 [place]. Provid er: Pain Caterina elsewhere 8 7235 [facility], [place], classifiedLow back Endy Lopez J, 7235 [address] pain [place] 7235 [facility] John, is, [place], Chandana Lopeza, [id number] [place], , [place]. [place], [place], 376471821 tel: [phone] , [place] [id number] . tel: tel: [phone] [facility] Postlaminectomy Sep-2 Garcia Refe [facility] Surgery syndrome, not 7-201 Viry. Provider: Pain Center elsewhere 8 7235 [facility], [place], classified John Will J, 7235 [address] [place] 7235 [facility] John, is, [place], Chandana Lopeza, [id number] [place], , [place]. [place], [place], 688535276 tel: [phone] , [place] [id number] . tel: tel:2 [phone] OFFICE/OUTPAT [facility] Back Pain Chronic pain Sep-1 Mario Referring IENT VISIT, [facility] (chief syndromePostlamine 9-201 [place] . Provider: EST Pain [employer] complaint) ctomy syndrome, 8 7235 [facility], not elsewhere Endy Lopez, 7235 Oh[address] classifiedRadiculo [place] 7 235 Ohms John, shane, lumbar is, [place], John, Caterina, regionLow back [id number] [place], pain , [place]. [place], [place], 681351405 tel:+ [phone] , [place] [id number] . tel: tel:[phone] OFFICE/OUTPAT [facility] Back Pain Chronic pain Sep-0 Mario Referring IENT VISIT, [facility] (chief syndromeCervicalgi 5- [place] . Provider: EST Pain Caterina complaint) aPostlaminectomy 8 7235 Ohms [facility], syndrome, not Endy Lopez, 7235 Oh[address] elsewhere [place] 7235 Ohms John, classifiedLow back is, [place], John, Caterina, painRadiculopathy, 636742787 [place], lumbar region , [place]. [place], [place], 332375384 tel: [phone] , [place] [id number] . tel: tel:[phone] OFFICE/OUTPAT [facility] Back Pain Postlaminectomy Aug-0 Gonzalez as Referring IENT VISIT, [facility] (chief syndrome, not 6- [place]. Pr ovider: EST Pain [employer] complaint) elsewhere 8 7235 [facility], classifiedChronic Endy Lopez , 7235 [address] pain [place] 7235 Ohms John, syndromeCervicalgi is, [place], John, [employer], aLow back pain [id number] [place], , [place], [place], 242720478 tel: [phone] , [place] [id number] . tel: tel:[phone] OFFICE/OUTPAT [facility] Back Pain Chronic pain Kanu-0 Mario Referring IENT VISIT, [facility] (chief syndromeCervicalgi 6-201 [place] . Provider: EST Pain [employer] complaint) aLow back pain 8 7235 [facility], John, Will J, 7235 [address] [place] 7235 Ohms John, is, [place], John, [employer], [id number] [place], , [place]. [place], [place], 642200773 tel: [phone] , [place] [id number] . tel: tel: [phone] OFFICE/OUTPAT [facility] Back Pain CervicalgiaChronic Apr-1 K angas Referring IENT VISIT, [facility] (chief pain syndromeLow 3-201 [place]. Provider: EST Pain [employer] complaint) back painLumbago 8 7235 [facility], with sciatica, John, Will J, 7235 [address] left [place] 7235 Ohil John, sidePostlaminectom is, [place], Caterina Lopez, y syndrome, not [id number] [place], elsewhere , [place]. [place], [place], 475456623 classifiedLong tel:43 , [place] term (current) use 05641185 . tel: of opiate tel: [phone] analgesic [phone] OFFICE/OUTPAT [facility] Back Pain CervicalgiaChronic Apr-0 K angas Referring IENT VISIT, [facility] (chief pain syndromeLow 6-201 [place]. Provider: EST Pain Caterina complaint) back 8 7235 [facility], [place], painPostlaminectom Endy Lopez J, 7235 Ohms y syndrome, not [place] 7235 Ohil John, elsewhere is, [place], classified [id number] [place], , [place]. [place], [place], 647588625 tel:[phone] , [place] [id number] . tel: tel: [phone] OFFICE/OUTPAT [facility] Back Pain CervicalgiaChronic Feb-0 K angas Referring IENT VISIT, [facility] (chief pain syndromeLow 6-201 [place]. Provider: EST Pain [employer] complaint) back 8 7235 [facility], [place], painPostlaminectom Edny Lopez J, 7235 Ohms y syndrome, not [place] 7235 Ohil John, elsewhere is, [place], John, [employer], classified [id number] [place], , [place]. [place], [place], 506280619 tel: [phone] , US [id number] . tel: tel: [phone] OFFICE/OUTPAT [facility] Back Pain CervicalgiaChronic K shlomo Referring IENT VISIT, [facility] (chief pain syndromeLow 8201 [place]. Provider: EST Pain [employer] complaint) back 7 7235 [facility], [place], painPostlaminectom John, Will J, 7235 Ohms y syndrome, not [place] 7235 Ohil John, elsewhere is, [place], John, [employer], classified [id number] [place], , [place], [place], 375939521 tel:[phone] , [place] 85779363 . tel: tel: [phone] OFFICE/OUTPAT [facility] Back Pain CervicalgiaLow Kangiqra s Referring IENT VISIT, [facility] (chief back 0-201 [place]. Provider : EST Pain [employer] complaint) painPostlaminectom 7 7235 [facility] [place], y syndrome, not John, Will J, 7235 Ohms elsewhere [place] 7235 Ohil John, classified is, [place], John, Caterina, [id number] [place], , [place]. [place], [place], 279200939 tel: [phone] , [place] [id number] . tel: tel: [phone] OFFICE/OUTPAT [facility] Back Pain Postlaminectomy Gonzalez as Referring IENT VISIT, [facility] (chief syndrome, not 9201 [place]. Pr ovider: EST Pain Caterina complaint) elsewhere 7 7235 [facility], [place], classifiedLow back John, Will J, 7235 Ohms painCervicalgia [place] 7235 Ohms John, is, [place], John, [employer], [id number] [place], , [place]. [place], [place], 047556859 tel: [phone] , US [id number] . tel: tel: [phone] OFFICE/OUTPAT [facility] Back Pain Low back May- Mario Ref erring IENT VISIT, [facility] (chief painCervicalgiaChr [place] . Provider: EST Pain [employer] complaint) onic pain 7 7235 [facility], [place], syndromePostlamine John, Endy J, 7235 Oh[address] ctomy syndrome, [place] 7235 Ohil John, not elsewhere is, [place], Caterina Lopez, classified [id number] [place], , [place], [place], 057601070 tel: [phone] , US [id number] . tel: tel: [phone] OFFICE/OUTPAT [facility] Back Pain Low back March-3 Mario Ref erring IENT VISIT, [facility] (chief painCervicalgiaChr [place] . Provider: EST Pain [employer] complaint) onic pain 7 7235 [facility], [place], syndromePostlamine Endy Lopez J, 7235 Oh[address] ctomy syndrome, [place] 7235 Ohil John, not elsewhere is, [place]John [place], classified [id number] [place], , [place], [place], 272413974 tel: [phone] , US [id number] . tel: tel: [phone] OFFICE/OUTPAT [facility] Back Pain Low back May-0 Mario Ref erring IENT VISIT, [facility] (chief painCervicalgiaChr [place] . Provider: EST Pain Caterina complaint) onic pain syndrome 7 7235 [facility], Endy Lopez J, 7235 Ohms [place] 7235 [facility] John, is, [place], Caterina Lopez, [id number] [place], , [place]. [place], [place], 842741731 tel: [phone] , [place] 04793530 . tel: tel: [phone] OFFICE/OUTPAT [facility] Back Pain CervicalgiaChronic Apr-0 K angas Referring IENT VISIT, [facility] (chief pain syndromeLow [place]. Provider: EST Pain Caterina complaint) back 7 7235 [facility], [place], painPostlaminectom John, Endy J, 7235 Ohms y syndrome, not [place] 7235 [place] John, elsewhere is, [place], Caterina Lopez, classified [id number] [place], , [place], [place], 924050391 tel:+ [phone] , [place] [id number] . tel: tel:[phone] OFFICE/OUTPAT [facility] Back Pain Low back Jan- Mario Ref erring IENT VISIT, [facility] (chief painCervicalgiaChr [place] . Provider: EST Pain [employer] complaint) onic pain 7 7235 [facility], [place], syndromePostlamine John, Endy J, 7235 Oh[address] ctomy syndrome, [place] 7235 Oh[place] John, not elsewhere is, [place], classified [id number] [place], , [place], [place], 850701752 tel: [phone] , US [id number] . tel: tel:[phone] OFFICE/OUTPAT [facility] Back Pain CervicalgiaLow Kanga s Referring IENT VISIT, [facility] (chief back painChronic [place]. Provider: EST Pain Caterina complaint) pain syndrome [address] [facility], Endy Lopez J, 7235 Ohil [place] 7235 [address] John, is, [place], Caterina Lopez, [id number] [place], , [place], [place], 330441436 tel: [phone] , [place] [id number] . tel: tel:[phone] OFFICE/OUTPAT [facility] Back Pain Low back Mario Ref erring IENT VISIT, [facility] (chief painCervicalgiaChr Rosetta . Provider: EST Pain Caterina complaint) onic pain syndrome 7 [address] [facility], [place], John Will J, [address] [place] [address] [place], is, [place], John, [employer], [id number] [place], , [place]. s, [place], [id number] tel:[phone] , [place] [id number] . tel: tel: [phone] OFFICE/OUTPAT [facility] Back Pain Low back Dec-0 Mario Ref erring IENT VISIT, [facility] (chief painCervicalgiaPos 2 Rosetta . Provider: EST Pain [employer] complaint) [facility]laminectomy 6 [facility], syndrome, not John, Will J, [address] elsewhere [place] [address] [place], classifiedChronic [place], [place], Ojhn, Caterina, pain syndrome [id number] Janae weiner [place], , [place]. [place], [place], [id number] tel:[phone] , [place] [id number] . tel: tel: [phone] OFFICE/OUTPAT [facility] Back Pain Low back Nov-0 Mario Ref erring IENT VISIT, [facility] (chief painCervicalgiaPos Rosetta . Provider: EST Pain Caterina complaint) [facility]laminectomy 6 [facility], syndrome, not John, Will J, [address] elsewhere [place] [address] John, classified [place], [place], John, [employer], [id number] [place], , [place]. [place], [place], [id number] tel:[phone] , [place] [id number] . tel: tel: [phone] OFFICE/OUTPAT [facility] Back Pain Lumbago with Aug- Van Referring IENT VISIT, [facility] (chief sciatica, left 4-[address] [place] Provider: EST Pain Caterina complaint) sideLong term 6 Kera. [facility], (current) use of [address] Will J, [address] opiate John, [address] John, analgesicCervicalg [place], [employer], [place] is, [place], [place], [id number] [place], [place], [id number] , [place]. [address] , [place] tel: . tel: [phone] tel: [phone] OFFICE/OUTPAT [facility] Back Pain CervicalgiaLow Kanga s Referring IENT VISIT, [facility] (chief back Rosetta. Provider : EST Pain [employer] complaint) painPostlaminectom 6 7235 [facility], [place], y syndrome, not John, Will J, [address] elsewhere [place] [address] John, classified [place], [place], John [employer], [id number] [place], , [place]. [place], [place], [address] tel: [phone] , [place] [id number] . tel: tel: [phone] OFFICE/OUTPAT [facility] Back Pain Low back Mario Ref erring IENT VISIT, [facility] (chief painCervicalgiaPos Rosetta . Provider: EST Pain Caterina complaint) tlaminectomy 6 7235 [facility], [place], syndrome, not John, Will J, [address] elsewhere [place] [address] John, classified [place], [place], John Caterina, [id number] [place], , [place]. [place], [place], [id number] tel: [phone] , [place] [id number] . tel: tel: [phone] OFFICE/OUTPAT [facility] Back Pain CervicalgiaLow Kanga s Referring IENT VISIT, [facility] (chief back painLumbago Rosetta. Provider: EST Pain [employer] complaint) with sciatica, 6 7235 [facility], left side John, Will J, [address] [place] [address] [place], is, [place], John, [employer], [id number] [place], , [place]. [place], [place], [id number] tel: [phone] , [place] [id number] . tel: tel: [phone] OFFICE/OUTPAT [facility] Back Pain Low back Mario Ref erring IENT VISIT, [facility] (chief painCervicalgia Rosetta. Provider: EST Pain Caterina complaint) 6 [facility], John, Endy J, [address] [place] [address] [place], is, [place], Caterina Lopez, [id number] [place], , [place]. [place], [place], [id number] tel:[phone] , [place] [id number] . tel: tel:[phone] OFFICE/OUTPAT [facility] Back Pain CervicalgiaLow March- Kanga s Referring IENT VISIT, [facility] (chief back painLumbago 0- Rosetta. Provider: EST Pain [employer] complaint) with sciatica, 6 7[address] [facility], left John, Endy Patel, [address] sidePostlaminectom [place] 7 [address] [place], y syndrome, not is, [place], John, Caterina, elsewhere [id number] [place], classified , [place]. [place], [place], [id number] tel: [phone] , [place] [id number] . tel: tel:[phone] OFFICE/OUTPAT [facility] Back Pain Low back Apr-2 Mario Ref erring IENT VISIT, [facility] (chief painCervicalgiaLum Rosetta . Provider: EST Pain [employer] complaint) bago [facility] 6 [facility], [facility], left Endy Lopez, [address] [place] [address] [place], is, [place], Caterina Lopez, [id number] [place], , [place]. [place], [place], [id number] tel: [phone] , [place] [id number] . tel: tel:[phone] OFFICE/OUTPAT [facility] Back Pain Low back Apr-0 Mario Ref erring IENT VISIT, [facility] (chief painCervicalgia 6 Rosetta. Provider: EST Pain [employer] complaint) 6 [facility] [facility], Endy Lopez, [address] [place] [address] [place], is, [place], Caterina Lopez, [id number] [place], , [place]. [place], [place], [id number] tel: [phone] , [place] [id number] . tel: tel: [phone] OFFICE/OUTPAT [facility] Back Pain Low back Mar-2 Mario Ref erring IENT VISIT, [facility] (chief painCervicalgiaLum 5-201 [place] . Provider: NEW Pain [employer] complaint) bago with 6 [address] [facility], sciatica, left John, Will J, [address] sideLong term [place] [address] John, (current) use of is, [place], John, Caterina, opiate [id number] [place], analgesicPostlamin , [place]. [place], [place] , [id number] ectomy syndrome, tel: [phone] , [place] not elsewhere [id number] . tel: classified tel: [phone] Family History Family Member Type Diagnosis Age At Onset Mother Problem (finding) back pain Payers Payer name Insurance type Covered libertarian ID Authorization(s ) Medicare MB [id number] [employer] [facility] [id number] Social History Type Description Quantity Date Captured [...] le Percentile percentile Ox Ox Area 60.781 -2021 kg 11:08 (134.00 AM lbs) Chief Complaint And Reason For Visit From encounter dated '07/27/2022 10:57'. Back Pain (chief complaint). Description: Severity level is 9. Duration: chronic. The problem is worsening. Reason For Referral Reason For Referral No Information Plan Of Treatment Date Type Action Status Goal Weight. Due on due Goal Zoster vaccine (1st). Due on due Goal Review Allergy List. Due on due Goal FIT-DNA. Due on due Goal UDT. Due on due Goal OARS. Due on due Goal GLYCERIN OPERATOR Scanned. Due on due Goal Unhealthy drug use screening. Du e on due Goal PHQ-9. Due on due Goal FIT. Due on due Goal Lipid panel. Due on due Goal Update Social History. Due on Goal Tobacco Use. Due on due Goal Medication Reconciliation. Due o n due Goal CT-Colonography. Due on due Goal BEE WORKER Paperwork. Due on due Goal HPV. Due [...] due Goal FIT. Due on due Goal GLYCERIN OPERATOR Scanned. Due on due Goal BEE WORKER Paperwork. Due on due Goal Weight. Due on due Goal Zoster vaccine (1st). Due on due Goal UDT. Due on due Goal Hepatitis C screening. Due on Goal FIT-DNA. Due on due Goal OARS. Due on due Goal AST (SGOT). Due on d ue Goal Medication Reconciliation. Due o n due Goal Update Social History. Due on Goal HPV. Due on due Goal CT-Colonography. [...] Order Annual PT. Due on due Goal BEE WORKER Paperwork. Due on due Goal GLYCERIN OPERATOR Scanned. Due on due Goal Height. Due on due Goal Unhealthy drug use screening. Du e on due Goal Review Allergy List. Due on due Goal ALT (SGPT). Due on d ue Goal HPV. Due on due Goal Creatinine. Due on d ue Goal UDT. Due on due Goal AST (SGOT). Due on d ue Goal FIT. Due on due Goal Zoster vaccine (). Due on due Goal Weight. Due on due Goal Hepatitis C screening. Due on Goal Update Social History. Due on Goal Medication Reconciliation. Due o n due Goal PHQ-9. Due on due Goal CT-Colonography. Due on 022 due Goal FIT-DNA. Due on due Goal Review Allergy List. Due on due Goal Lipid panel. Due on due Goal Zoster vaccine (1st). Due on due Goal Tobacco Use. Due on due Goal UDT. Due on due Goal HPV. Due on due Goal AST (SGOT). Due on d ue Goal GLYCERIN OPERATOR Scanned. Due on due Goal Unhealthy drug use screening. Du e on due Goal Order Annual PT. Due on due Goal OARS. Due on due Goal ALT (SGPT). Due on d ue Goal Height. Due on due Goal Update Social History. Due on du Goal Medication Reconciliation. Due o n due Goal Creatinine. Due on d ue Goal Weight. Due on due Goal CT-Colonography. Due on due Goal FIT-DNA. Due on due Goal PHQ-9. Due on due Goal FIT. Due on due Goal BEE WORKER Paperwork. Due on due Goal Hepatitis C screening. Due on Goal BEE WORKER Paperwork. Due on due Goal ALT (SGPT). Due on d ue Goal PHQ-9. Due on due Goal CT-Colonography. Due on due Goal Tobacco Use. Due on due Goal Zoster vaccine (1st). Due on due Goal Order Annual PT. Due on due Goal Unhealthy drug use screening. e on due Goal Hepatitis C screening. Due on du -2022 Apr-29-2022 Goal Lipid panel. Due on [...] due Goal UDT. Due on due Goal GLYCERIN OPERATOR Scanned. Due on due Goal Zoster vaccine (1st). Due on due Goal Order Annual PT. Due on 022 due Goal HPV. Due on due Goal AST (SGOT). Due on d ue Goal Medication Reconciliation. Due o n due Goal BEE WORKER Paperwork. Due on due Goal ALT (SGPT). Due on d ue Goal Unhealthy drug use screening. on due Goal FIT-DNA. Due on due Goal Creatinine. Due on d ue Goal Lipid panel. Due on due Goal GLYCERIN OPERATOR Scanned. Due on due Goal Tobacco [...] Goal Update Social History. Due on Goal BEE WORKER Paperwork. Due on due Goal GLYCERIN OPERATOR Scanned. Due on due Goal AST [...] due Goal UDT. Due on due Goal GLYCERIN OPERATOR Scanned. Due on due Goal AST (SGOT). Due on d ue Goal OARS. Due on due Goal Height. Due on due Goal ALT (SGPT). Due on d ue Goal Order Annual PT. Due on due Goal Review Allergy List. Due on due Goal PHQ-9. Due on due Goal BEE WORKER Paperwork. Due on due Goal Update Social History. Due on Goal Review Allergy List. Due on due Goal Weight. Due on due Goal Tobacco Use. Due on due Goal Order Annual PT. Due on due Goal Height. Due on due Goal ALT (SGPT). Due on d ue Goal Medication Reconciliation. Due o n due Goal PHQ-9. Due on due Goal BEE WORKER Paperwork. Due on due Goal UDT. Due on due Goal AST (SGOT). Due on d ue Goal GLYCERIN OPERATOR Scanned. Due on due Goal OARS. Due on due Goal Update Social History. Due on Goal Weight. Due on due Goal Medication Reconciliation. Due o n due Goal Update Social History. Due on Goal Tobacco Use. Due on due Goal Height. Due on due Goal Review Allergy List. Due on due Goal PHQ-9. Due on due Goal BEE WORKER Paperwork. Due on due Goal Order Annual PT. Due on 022 due Goal OARS. Due on due Goal GLYCERIN OPERATOR Scanned. Due on due Goal ALT (SGPT). Due on d ue Goal AST (SGOT). Due on d ue Goal UDT. Due on due Goal Tobacco Use. Due on due Goal Medication Reconciliation. Due o n due Goal OARS. Due on due Goal GLYCERIN OPERATOR Scanned. Due on due Goal Update Social History. Due on Goal AST (SGOT). Due on d ue Goal Height. Due on due Goal Weight. Due on due Goal Order Annual PT. Due on due Goal ALT (SGPT). Due on d ue Goal PHQ-9. Due on due Goal UDT. Due on due Goal Review Allergy List. Due on due Goal BEE WORKER Paperwork. Due on due Goal BEE WORKER Paperwork. Due on due Goal PHQ-9. Due on due Goal Weight. Due on due Goal Height. Due on due Goal OARS. Due on due Goal Medication Reconciliation. Due o n due Goal Update Social History. Due on Goal GLYCERIN OPERATOR Scanned. Due on due Goal Order [...] ALT (SGPT). Due on d ue Goal BEE WORKER Paperwork. Due on due Goal GLYCERIN OPERATOR Scanned. Due on due Goal PHQ-9. Due on due Goal Medication Reconciliation. Due o n due Goal Tobacco Use. Due on due Goal Review Allergy List. Due on due Goal Height. Due on due Goal Medication Reconciliation. Due o n due Goal PHQ-9. Due on due Goal Update Social History. Due on Goal Tobacco Use. Due on due Goal GLYCERIN OPERATOR Scanned. Due on due Goal BEE WORKER Paperwork. Due on due Goal Weight. Due on due Goal OARS. Due on due Goal Order Annual PT. Due on due Goal ALT (SGPT). Due on d ue Goal AST (SGOT). Due on d ue Goal UDT. Due on due Goal Weight. Due on due Goal ALT (SGPT). Due on d ue Goal PHQ-9. Due on due Goal Height. Due on due Goal BEE WORKER Paperwork. Due on due Goal Update Social History. Due on e Goal OARS. Due on due Goal AST (SGOT). Due on d ue Goal GLYCERIN OPERATOR Scanned. Due on due Goal Order Annual PT. Due on 021 due Goal Tobacco Use. Due on due [...] Update Social History. Due on e Goal GLYCERIN OPERATOR Scanned. Due on due Goal PHQ-9. Due on due Goal OARS. Due on due Goal Tobacco Use. Due on due Goal BEE WORKER Paperwork. Due on due Goal Height. Due on due Goal Order Annual PT. Due on due Goal Tobacco cessation counseling com pleted Goal Tobacco Use. Due on due Goal AST (SGOT). Due on d ue Goal Order Annual PT. Due on due Goal GLYCERIN OPERATOR Scanned. Due on due Goal Update Social History. Due on du e Goal PHQ-9. Due on due Goal ALT (SGPT). Due on d ue Goal Review Allergy List. Due on due Goal BEE WORKER Paperwork. Due on due Goal OARS. Due [...] due Goal Height. Due on due Goal GLYCERIN OPERATOR Scanned. Due on due Goal UDT. Due on due Goal Medication Reconciliation. Due o n due Goal BEE WORKER Paperwork. Due on due Goal Update Social History. Due on Goal PHQ-9. Due on due Goal ALT (SGPT). Due on d ue Goal UDT. Due on due Goal AST (SGOT). Due on d ue Goal GLYCERIN OPERATOR Scanned. Due on due Goal BEE WORKER Paperwork. Due on due Goal PHQ-9. Due on due Goal Order Annual PT. Due on due Goal Review Allergy List. Due on due Goal Tobacco Use. Due on due Goal Height. Due on due Goal Weight. Due on due Goal Update Social History. Due on Goal OARS. Due on due Goal Medication Reconciliation. Due o n due Goal AST (SGOT). Due on d ue Goal Medication Reconciliation. Due o n due Goal Weight. Due on due Goal Height. Due on due Goal PHQ-9. Due on due Goal GLYCERIN OPERATOR Scanned. Due on due Goal Tobacco Use. Due on due Goal Order Annual PT. Due on 021 due Goal UDT. Due on due Goal BEE WORKER Paperwork. Due on due Goal ALT (SGPT). [...] ANALYSIS , URINE, WITH Ordered MED REPORT ([id number]), Ordered on: Future Order: Lab Order Drug Test Def 22+ Classe s ([id number]), Ordered Ordered on: Future Order: Lab Order Drug Test Def 22+ Classe s ([id number]), Ordered Ordered on: Future Order: Lab Order COMPLIANCE DRUG ANALYSIS , URINE, WITH Ordered MED REPORT ([id number]), Ordered on: Future Order: Lab Order MRSA/MSSA Screening ([id number]), Ordered Ordered on: Future Order: Lab Order COMPLIANCE DRUG ANALYSIS , URINE, WITH Ordered MED REPORT ([id number]), Ordered on: History Of Present Illness Encounter [...] her L sydni ulder on 12/30/21 with [facility] in order for infection to clear. Additional surgery completed 02/26/22. In fection returned as well as dislocation. Followi ng with surgeon as needed and underwent another ingram rgery 05/19/22 for new hardware placement. Participates [...] h er L shoulder on 12/30/21 with [facility] in order for in fection to clear. [...] to her Yomi mann on 12/30/21 with [facility] in order for infection to clear. Additional [...] her L sydni ulder on 12/30/21 with [facility] in order for infection to clear. Additional [...] or hardware removal surgery on 12/30/21 with [facility] in order for infection to clear. Will [...] is scheduled [facility] in order for infection to ca ar. Pre-op Physical on 12/29/21 and surgery on 12/30/21. Following surgery, she continu es to plan to with shoulder specialist to discus s treatment options upon improvement of infec tion. Participates in HEP as able. Ongoing relief with SCS and medical cannabis.No further questions or concerns. Back Pain (comments) Angei presents for a follow up and medications refill for her back and neck pain. Neck, back, L shoulder and bilater al hips/knees/shoulder pain have continued to be worse over the past month. Feels her fibromyalg ia pain is worse with the colder weather. Typi france flares with weather fluctuations. She st ates that she is scheduled for hardware removal surgery in December with [facility] in order for in fection to clear. [...] patient today - no show Back Pain Severity level is 9. Duration: [...] /drugs, rest and changing positions. Back Pain (comments) Patient is here for follow up and medications refill for ongoing b ack pain. States her pain has gotten worse since l ast OV and is affected by weather changes. She had recently completed sinus surgery on 12/07/2019 . Remains interested in pursuing an SCS gene rator replacement now that she is cleared for s greer. Continues to use conservative treatme nts for pain relief. Reports current medication r egimen provides 70% pain relief. Denies side effects from current medication regimen. Oral medications and medical cannabis continues t o provide pain relief and allow her to do ever yday tasks. No other concerns today. Back Pain Duration: [...] relief and allo ws for increased functionality. Denie s side effects [...] L side weakness -- was treated by [facility]. Was put on Warfarin, [...] and enroll ed in a program through [facility]. She also not es of increasing [...] down, pain meds/drugs and rest. Back Pain Severity [...] not interested in any procedures at the [facility]. PT-SABAS-RF-N/ASCS-Cur evelinkarolinay has Meds: Opioids-Currently ta kes [...] to refill her medications. She will call [facility] if sh e has any questions [...] mo re headaches. She was seen by [facility] who told her she has a screw loose. She was referred to Dr. Gonzalez at [facility]. She has not heard from t hem. [...] tomorrow. She said s he will get [place] for 4-5 days maximum followi ng the [...] and states it aggrevated her pain. Medical [facility] continues to be effective for reduci ng her pain. She will be completing diagnosti c injections today through [facility]. No other concerns today. [...] #1 Oxycodone, surplus. She was hospitalized in [place] about a w pilot point ago for her back pain. She is having an epd iural steroid injection done at [facility] tomorrow. She isn't sure how well the [...] neck surgery. ENT referred her to an screwdown operator for additional evaluation. No other concerns today. [...] rest. Back Pain (comments) Angei is here to y for follow up [...] Patient completed right shou lder imaging at [facility] and reports a tear. She plans [...] heat, pain meds/drugs and rest. Back Pain (comments) Angie is here toda y for follow up evaluation and medication refills r elating to her back pain. She has #76 oxycodone an d #6 Fentanyl remaining - on track. She did not r eceive any relief from her SABAS and is unsure wi th she will be undergoing a Cervical Fusion with [facility]. [facility]. She stat [...] a cervical fusion in the near f [facility]. She has noticed increased restlessne ss [...] re ferred by Dr. Amna Fletcher from [facility]. Angie is here today for her initial consult regarding her back, neck and knee pain which bega n years ago and has been aggrevated from [facility]. She had a lumbar fusion in the past. She also has underwent several neck surgeri es including a cervical fusion and plans to have additional surgery done by Dr. Rodriguez at [facility]. She also has a history of Gastric [...] regul christian. She recently moved back to [place] from [place]. No ot her concerns today. Medical records:Dr. Rodriguez at [facility] - neck surgeon Dr. Amna Fletcher a t [facility] - PCP recordsPast treatmen t:SABAS - no [...] 10/27/2020. Additional hardwar e removal surgery through [facility] completed 12/30/21. Another s urgery to replace [...] implant on 07/11. Improvement with reprogramming assessment buttermilk drier operator (current) use of opiate analge sic impression [...] Last [facility]ul [facility] and [facility] [...]
--- OUTSIDE RECORDS SUMMARY | 2022-08-08 22:52 | XMS_ITS | Encounter Summary ---
:1965 Author Organization [place] Address [facility] [place] [address] Care Team Providers Name Role Phone Unavailable Primary Care Provider Unavailable Encounter Details Date Type Department Care Team Description 07/29/2011 Historic Notes INTERFACED REPORT Interface, Transcript onMD Social History Tobacco Use Types Packs/Day Years Used Date Never Assessed Sex Assigned at Date Recorded Not on file documented as of this encounter Progress Notes Interface, Weed Cooking Operator - 08/30/2011 5:48 PM CDT Allergies ?? [...]
--- OUTSIDE RECORDS SUMMARY | 2022-08-08 22:52 | XMS_ITS | Encounter Summary ---
:1965 Author Organization [place] Address [facility] [place] [address] Care Team Providers Name Role Phone [facility] Primary Care Provide r Mor [...] filedocumented in this encounter Care Teams Pot Pusher Relationship Specialty Start Date End Date [facility], [facility] PCP - General 06/03/17 [facility] [address] [place] [address] Mor Bautista MD Assigned Infectious Disease 06/12/2106/25 [facility] Mohan Porter Provider [address] [place] [address] documented as of this encounter
--- OUTSIDE RECORDS SUMMARY | 2022-08-08 22:52 | XMS_ITS | Encounter Summary ---
:1965 Author Organization [place] Address [address] [facility] 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 Sh Periop Services Procedures CYSTOSCOPY, SLING TRANSVAGINAL [address], [address] [place] [address] Phone: Referral ID Status Reason Start Date Expiration Date Visits Requ ested Visits Authorized [id number] 1 1 Encounter Details Date Type Department Care Team Description 10/14/2017 Anesthesia Event M [facility] SruthiEri rosa MD [facility] ANESTHESIA [address] [place] [id number] [facility] PeriOP Gayatri Combs, REVISING CLERK MOBILITY ENGINEER [address] [place] [address] Services [address] [place] [address] Anesthesia Record Procedure Summary Procedure Name [...] Gayatri Combs, Vicki Collins D, Injectable; Tolerated MOBILITY ENGINEER RN well Retired Non-Surgical 10/14/17; 1254; Easy; 10/14/17 1254 by 09/28 06/13 1328 by Airway Intravenous; 4; mm; Gayatri Combs, REVISING CLERK Gayatri Combs, laryngeal mask airway; MOBILITY ENGINEER REVISING CLERK MOBILITY ENGINEER midline; Equal, clear and bilateral; MOBILITY ENGINEER; hh Urethral Catheter 10/14/17; 1314; No; 10/14/17 1314 by 10/14/17 1316 by /GI/MAINTENANCE PIPEFITTER Pelvic Usha Bar, Carole Duff, Procedure; 16 [...] MD, MD October 14, 2017 1:50 PM ILE TRIMMER Anesthesia Preprocedure Evaluation - Mini Negro MD [...] SURGERY ??? BACK SURGERY ??? CHOLECYSTECTOMY ??? MAINTENANCE PIPEFITTER SURGERY ??? ORTHOPEDIC SURGERY Social History Substance [...] (Takes 2 x 5000 unit tablet = 07855 unit dose) Yes Reported, Patient Esomeprazole Magnesium [...] Yes Reported, Patient naloxone (NARCAN) nasal spray [place] 4 mg into one nostril alternating nostrils [...] Reported, Patient Current Facility-Administered Medications Ordered in [facility] Medication Dose Route Frequency Last Rate Last Dose ??? Provider ordered ALTERNATE pre op antibiotic. 1 each As instructed Continuous ??? ciprofloxacin (CIPRO) infusion 400 mg 400 mg Intravenous Pre-Op/Pre-procedure x 1 dose No current [facility]-ordered outpatient prescriptions on file. ??? [...] GLC, BUN, CR, ROGER in the last [id number]. No results for input(s): AST, ALT, ALKPHOS, BILITOTAL, LIPASE in the last 71492 hours. No results for input(s): WBC, HGB, PLT in the last 04174 hours. No results for input(s): ABO, RH in the last 71244 hours. No results for input(s): INR, PTT in the last 15629 hours. No results for input(s): TROPI in the last 21249 hours. No results for input(s): PH, PCO2, PO2, HCO3 in the last 40696 hours. No results for input(s): HCG in the last 81154 hours. No results found for this or any previous visit (from the past 744 hour(s)). RECENT LABS: ECG: ECHO: ILE TRIMMER documented in this encounter Miscellaneous Notes Anesthesia [...] APRN CRNA October 14, 2017 1:34 PM ILE TRIMMER documented in this encounter Plan of Treatment Not on filedocumented as of this encounter Visit Diagnoses Not on filedocumented in this encounter Administered Medications Inactive Administered Medications - up to 3 most recent administrations Medication Order MAR Action Action Date Dose Rate Site ciprofloxacin (CIPRO) infusion Given 10/14/2017 12:59 PM PROFILE TRIMMER 400 mg 400 mg Routine, 400 mg, Intravenous, PRE-OP/PRE-PROCEDURE, Starting on Tue10/14/17 at 1155, For 1 dose, Irritant., Indications: Perioperative Pharmacoprophylaxis, Pre-procedure New Bag 10/14/2017 12:26 PM PROFILE TRIMMER 400 mg dexamethasone (DECADRON) injection Given 10/14/2017 1:03 PM PROFILE TRIMMER 4 mg PRN, Administer over 1 Minutes, Starting on Tue10/14/17 at 1303, Anesthesia Intra-op dexmedetomidine (PRECEDEX) 4 mcg/mL bolu s Bolus 10/14/2017 1:08 PM PROFILE TRIMMER 8 mcg 200 mcg, CONTINUOUS PRN, Starting on Tue10/14/17 at 1305, Anesthesia Intra-op New Bag 10/14/2017 1:05 PM PROFILE TRIMMER 12 mcg fentaNYL (PF) (SUBLIMAZE) injection Given 10/14/2017 12:52 PM PROFILE TRIMMER 100 mcg PRN, moderate to severe pain, Administer over 3-5 Minutes, Starting on Tue10/14/17 at 1252, Anesthesia Intra-op lactated ringers infusion New Bag 10/14/2017 12:51 PM PROFILE TRIMMER Intravenous, CONTINUOUS PRN, Anesthesia Intra-op, Starting on Tue10/14/17 at 1251, Until Tue10/14/17 at 1334 lidocaine injection 2% (MDV) Given 10/14/2017 12:52 PM PROFILE TRIMMER 80 mg PRN, Starting on Tue10/14/17 at 1252, Anesthesia Intra-op midazolam (VERSED) injection Given 10/14/2017 12:51 PM PROFILE TRIMMER 2 mg Administer over 2 Minutes, PRN, anxiety, Starting on Tue10/14/17 at 1251, Anesthesia Intra-op ondansetron (ZOFRAN) injection Given 10/14/2017 1:03 PM PROFILE TRIMMER 4 mg PRN, nausea, vomiting, Administer over 2-5 Minutes, Starting on Tue10/14/17 at 1303, Anesthesia Intra-op propofol (DIPRIVAN) infusion Rate/Dose 10/14/2017 1:14 150 mcg/kg/min 66.5 mL/hr Intravenous, CONTINUOUS PRN, Change PM PROFILE TRIMMER Starting on Tue10/14/17 at 1252, Anesthesia Intra-op New Bag 10/14/2017 12:52 PM PROFILE TRIMMER 200 mcg/kg/min 88.7 mL/hr propofol (DIPRIVAN) injection 10 mg/mL v ial Given 10/14/2017 1:06 PM PROFILE TRIMMER 50 mg PRN, Starting on Tue10/14/17 at 1252, Anesthesia Intra-op Given 10/14/2017 12:52 PM PROFILE TRIMMER 150 mg documented in this encounter Care Teams Product Craftsman Relationship Specialty Start Date End Date Clinic, [facility] PCP - General 06/03/171999 [place] [address] documented as of this encounter
--- OUTSIDE RECORDS SUMMARY | 2022-08-08 22:52 | XMS_ITS | Encounter Summary ---
:1965 Author Organization [place] Address [facility] [place] [address] Care Team Providers Name Role Phone Clinic, [facility] Primary Care Provider [phone] Reason for Visit Reason Comments Fall Encounter Details Date Type Department Care Team Description 05/17/2017 Emergency [facility] Jose Guadalupe Betancourt MD Acute neck pain; [facility] Emergency Dep t EMERGENCY PHYSICIANS Shoulder strain, unspecified laterality, initial encounter [address] [place], [place] [address] [address] [id number] [address] [address] [place], [place] [address] (Wo rk) Social History Tobacco Use Types [...] contain Tylenol?? (acetaminophen), including Vicodin??, Tylenol #3??, [place]??, Lortab??, and Percocet??. You should not take [...] contain Tylenol?? (acetaminophen), including Vicodin??, Tylenol #3??, [place]??, Lortab??, and Percocet??. You should not take [...] neck fusion Reports taking tylenol 2 hrs BELT MAKER HELPER Jose Guadalupe Betancourt MD - 05/17/2017 7:20 [...] Surgical History: Abdomen surgery Back surgery Cholecystectomy TELEPHONE SERVICES SALES REPRESENTATIVE surgery Orthopedic Surgery Family History: History reviewed. [...] I spoke with Dr. Davis of the [facility] regarding patient's presentation, findings, [...] and the provider's statements to me. 05/17/2017 [facility] EMERGENCY DEPARTMENT Jose Guadalupe Betancourt MD 05/18/17 [...] NAZANIN MCCORMACK MD Jose Guadalupe Betancourt MD [facility] ORDERABLES documented in this encounter Visit [...] grams documented in this encounter Care Teams Room Service Runner Relationship Specialty Start Date End Date [facility], [facility] PCP - General 05/17/17 06/02/17 [address] [place] [address] documented as of this encounter
--- OUTSIDE RECORDS SUMMARY | 2022-08-08 22:52 | XMS_ITS | Encounter Summary ---
:1965 Author Organization [place] Address [facility] [place] [address] Care Team Providers Name Role Phone [facility] Provide r Reason for Visit Reason Comments Referral Other ID Encounter Details Date Type Department Care Team Description 05/11/2021 Communication - [facility] [place] Provider, Jameel howard; [facility] Specialties Patient Access [address] [place] [id number] Social History Tobacco Use Types Packs/Day Years Used Date Current Every Day Smoker 0.5 Smokeless Tobacco: Never Used Alcohol Use Standard Drinks/Week Comments No 0 (1 standard drink = 0.6 oz pure alcoho l) Sex Assigned at Date Recorded Not on file documented as of this encounter Miscellaneous Notes Telephone Encounter - Historical Provider - 05/13/2021 11:10 AM CDT Date: 05/14/2021 Status: [facility] Time: 3:20 PM Length: 40 Visit Type: CONSULT [[id number]] Copay: $0.00 Provider: Mor Bautista MD Telephone [...] ONLY received??? 05/11/2021 12:05pm inside ID consult [facility] [place], , Referring: Dr David Cohn, DX: status post shoulder replacement, left Order comments: Asking for HALI, this week. Electronically signed by [facility] Provider at 05/11/2021 3:37 PM CDT documented in this encounter Plan of Treatment Not on filedocumented as of this encounter Visit Diagnoses Not on filedocumented in this encounter Care Teams Compliance Examiner Relationship Specialty Start Date End Date Clinic, [facility] PCP - General 06/03/171999 [place] [address] documented as of this encounter
--- OUTSIDE RECORDS SUMMARY | 2022-08-08 22:52 | XMS_ITS | Encounter Summary ---
:1965 Author Organization [place] Address [facility] [place] [address] Care Team Providers Name Role Phone Unavailable Primary Care Provider Unavailable Encounter Details Date Type Department Care Team Description 04/15/2009 Historic Results INTERFACED REPORT Kai Munoz MD [address] [facility] [address] [place] [address] (Wo rk) Social History Tobacco [...]
--- OUTSIDE RECORDS SUMMARY | 2022-08-08 22:52 | XMS_ITS | Encounter Summary ---
:1965 Author Organization [place] Address [address] [place] [address] Care Team Providers Name Role Phone [facility], [facility] Primary Care Provide r Encounter Details Date Type Department Care Team Description 04/29/2021 [facility] CONVERSION ProviderAlea Social History [...] on filedocumented in this encounter Care Teams Maid Housekeeper Relationship Specialty Start Date End Date [facility] PCP - General 06/03/171999 [place] [address] documented as of this encounter
--- OUTSIDE RECORDS SUMMARY | 2022-08-08 22:52 | XMS_ITS | Encounter Summary ---
:1965 Author Organization [place] Address [address] [facility] 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 Sh Periop Services Procedures CYSTOSCOPY, SLING TRANSVAGINAL [address], [address] [place] [address] Phone: Referral ID Status Reason Start Date Expiration Date Visits Requ ested Visits Authorized [id number] 1 1 Encounter Details Date Type Department Care Team Description 10/14/2017 Surgery [facility] [place], CYSTOSCOPY ,TVT SLING [place] PeriOP Ser ashwin Rodrigez MD [address], [address] [facility] A UROLOGY [facility] [address] [place] [address] [facility] [phone] [place] [address] (Wo rk) Surgery Details Date/Time Status Location OR Service Patient Case Class Case Tr auma Class Type Case? 10/14/17 1:00 Posted OR OR [facility] Urology Same Day PM Surgery Panel 1 [...] Comments Blood Pressure 93/59 10/14/2017 2:15 PM SIZE ROLLER OPERATOR Pulse - - Temperature 35.7 ??C (96.3 ??F) 10/14/2017 1:31 PM SIZE ROLLER OPERATOR Respiratory Rate 14 10/14/2017 2:15 PM SIZE ROLLER OPERATOR Oxygen Saturation 93% 10/14/2017 2:15 PM SIZE ROLLER OPERATOR Inhaled Oxygen Concentration - - Weight 73.9 kg (163 lb) 10/14/2017 12:15 PM SIZE ROLLER OPERATOR Height 152.4 cm (5') 10/14/2017 12:15 PM SIZE ROLLER OPERATOR Body Mass Index 31.83 10/14/2017 12:15 PM SIZE ROLLER OPERATOR documented in this encounter Discharge Instructions Discharge InstructionsGi King, RADHA - 10/14/2017 1:42 PM SIZE ROLLER OPERATOR Post Bladder Sling Instructions Dr Stafford [phone] ?? For pain you may take a narcotic/acetaminophen combination prescription for pain relief. The mostcommon pain is in the upper thighs. This usually lasts 2-3 days. You may use cold packs to this areaas needed to reduce pain and bruising. Generally frgl-xzn-ypsdgzz medicines such as ibuprofen, 3-4 tablets every [...] vaginal sutures. ?? Post op appointments: Call [phone] to schedule an appointment to see your [...] know so they can address your concerns. ROLLER OPERATOR documented in this encounter Medications at Time [...] needed for muscle spasms naloxone (NARCAN) nasal Pease 4 mg into one 0 spray nostril [...] (Takes 2 x 5000 unit tablet = 62897 unit dose) ZONISAMIDE PO Take 300 mg [...] and was given a new prescription for [place]. Prescription for Oxycodone shredded. Patient took hard copy of new [place] prescription with her.; ROLLER OPERATOR Vicki Matthews RN - 10/14/2017 3:39 PM CST Patient voided, bladder scan 450cc, encouraged patient to void again. Pt voided. Bladder scan for 100-150cc. Patient comfortable and ready to go home. ROLLER OPERATOR documented in this encounter Miscellaneous Notes Op [...] note, she also underwent sling placement in [facility] and on exam I was [...] and draped in the regular fashion. A 16-Bur[place] catheter was placed. Periurethral space was [...] EM#[id number] Name: ANGIE MOSQUERA MRN: [id number] Account: [id number] : 1965 Procedure Date: 10/14/2017 Document: [id number] cc: Rain Stafford MD ROLLER OPERATOR documented in this encounter Plan of Treatment Not on filedocumented as of this encounter Procedures Procedure Name Priority Date/Time Associated Diagnosis Comme nts CREATION, VAGINAL 10/14/2017 12:46 PM URGE AND STRESS SLING, WITH CYSTOSCOPY SIZE ROLLER OPERATOR INCONTINENCE,FEMAL E STRESS INCONTINENCE LAB RESULT - HIM SCAN 10/11/2017 12:00 AM SIZE ROLLER OPERATOR EKG CARDIAC - HIM SCAN 08/15/2017 12:00 AM CDT XRAY IMAGING - HIM 07/25/2017 12:00 AM SCAN CDT documented in this encounter Results LAB RESULT - HIM SCAN (10/11/2017 12:00 AM SIZE ROLLER OPERATOR) Specimen (Source) Anatomical Location Collection Method [...] 1:21 PM 30 mLs Operative EPINEPHrine 1:200,000 SIZE ROLLER OPERATOR Sit e/Surgical Site injection PRN, Starting on Tue10/14/17 at 1321, Intra-procedure ciprofloxacin (CIPRO) infusion 400 mg Given 10/14/2017 12:59 PM SIZE ROLLER OPERATOR 400 mg Routine, 400 mg, Intravenous, PRE-OP/PRE-PROCEDURE, Starting on Tue10/14/17 at 1155, For 1 dose, Irritant., Indications: Perioperative Pharmacoprophylaxis, Pre-procedure New Bag 10/14/2017 12:26 PM SIZE ROLLER OPERATOR 400 mg fentaNYL (PF) (SUBLIMAZE) injection 25-5 0 mcg Given 10/14/2017 2:01 PM SIZE ROLLER OPERATOR 50 mcg 25-50 mcg, Intravenous, EVERY 2 [...] 100 mcg., PACU Given 10/14/2017 1:50 PM SIZE ROLLER OPERATOR 50 mcg HYDROmorphone (PF) (DILAUDID) injection Given 10/14/2017 2:42 PM SIZE ROLLER OPERATOR 0.5 mg 0.3-0.5 mg 0.3-0.5 mg, Intravenous, [...] minutes., PACU/Phase II Given 10/14/2017 2:18 PM SIZE ROLLER OPERATOR 0.5 mg ondansetron (ZOFRAN) injection 4 mg Given 10/14/2017 2:18 PM SIZE ROLLER OPERATOR 4 mg 4 mg, Intravenous, EVERY 30 [...] tablet 5 mg Given 10/14/2017 2:54 PM SIZE ROLLER OPERATOR 5 mg 5 mg, Oral, ONCE, On Tue10/14/17 at 1500, For 1 dose, PACU scopolamine (TRANSDERM) 72 hr Given 10/14/2017 12:43 PM SIZE ROLLER OPERATOR 1 pa tch Behind Left Ear patch 1 patch 1 patch, Transdermal, EVERY 72 HOURS, First dose on Tue10/14/17 at 1245, Apply patch to skin, behind ear. Remove every 72 hours. Each 1.5 mg patch delivers 1 mg of scopolamine., Pre-procedure skin closure adhesive Given 10/14/2017 1:19 PM 1 applicator Operative (DERMABOND) vial SIZE ROLLER OPERATOR Site/Surgical S ite PRN, Starting on Tue10/14/17 at 1319, Intra-procedure sodium chloride 0.9% Given 10/14/2017 1:09 PM 1,000 mLs Operative (bottle) irrigation SIZE ROLLER OPERATOR Site/Surgical S ite PRN, Starting on Tue10/14/17 at 1309, Intra-procedure sterile water irrigation Given 10/14/2017 1:08 PM 3,000 mLs Operative (bag) SIZE ROLLER OPERATOR Site/Surgical S ite PRN, Intra-procedure, Starting on Tue10/14/17 at 1308, Until Tue10/14/17 at 1544 documented in this encounter Active and Recently Administered Medications Times are shown in SIZE ROLLER OPERATOR. Scheduled Medication Order 10/12/2017 10/13/2017 10/14/2017 ciprofloxacin (CIPRO) infusion 400 mg (COMPLETED) 1226 (New Bag - Provider: Rona Hanks RN)1259 (Given - Provider: aGyatri Combs APRN FILM PROJECTOR OPERATOR) Routine, 400 mg, Intravenous, PRE-OP/PRE -PROCEDURE, [...] Provider: Gi King RN)1442 (Given - Provider: iG King, RADHA) 0.3-0.5 mg, Intravenous, EVERY 10 [...] 1544 documented in this encounter Care Teams Klystrom Tube Tester Relationship Specialty Start Date End Date Clinic, [facility] PCP - General 06/03/171999 [place] [address] documented as of this encounter
--- OUTSIDE RECORDS SUMMARY | 2022-08-08 22:52 | XMS_ITS | Encounter Summary ---
:1965 Author Organization [place] Address [address] [place] [address] Care Team Providers Name Role Phone [facility] [...] on filedocumented in this encounter Care Teams Windows Security Analyst Relationship Specialty Start Date End Date [facility] PCP - General 06/03/171999 [place] [address] documented as of this encounter
--- OUTSIDE RECORDS SUMMARY | 2022-08-08 22:52 | XMS_ITS | Encounter Summary ---
:1965 Author Organization [place] Address [address] [facility] [place] [address] Care Team Providers Name Role Phone Unavailable Primary Care Provider Unavailable Encounter Details Date Type Department Care Team Description 04/15/2009 Results Only [facility] Evelio Munoz MD Hospital Results [address] [place] [phone] (Wo rk) Social History Tobacco Use Types [...] MD SPECIAL IMAGING STUDIES Performing Organization Address City/[facility] Code Phon e Number RADIOLOGY [...] MD SPECIAL IMAGING STUDIES Performing Organization Address [facility] Code Phon e Number RADIOLOGY RESULTS documented in this encounter Visit Diagnoses Not on filedocumented in this encounter
--- OUTSIDE RECORDS SUMMARY | 2022-08-08 22:52 | XMS_ITS | Encounter Summary ---
:1965 Author Organization [place] Address [facility] [place] [address] Care Team Providers Name Role Phone Clinic, [facility] Primary Care Provide r Mor Bautista MD Unavailable Reason for Visit Reason Onset Date Comments Appointment 05/12/2021 Encounter Details Date Type Department Care Team Description 05/12/2021 [facility] Infectious Disease None Appointment Clinic [place] [phone] Social History Tobacco Use Types Packs/Day Years Used Date Current Every Day Smoker 0.5 Smokeless Tobacco: Never Used Alcohol Use Standard Drinks/Week Comments No 0 (1 standard drink = 0.6 oz pure alcoho l) Sex Assigned at Date Recorded Not on file documented as of this encounter Miscellaneous Notes Telephone Encounter - Tiffanie Georges - 05/12/2021 12:17 PM CDT [facility] Phone Message May a detailed message be left on voicemail: yes Reason for Call: Other: Pt requesting call back, pt stated she is returning a call to the clinic. Editor Managing Newspaper did not see any notes in the pt's chart to refer to. Pt stated she is being referred from [facility] for a staph infection in her [...] on filedocumented in this encounter Care Teams Boatbuilder Supervisor Relationship Specialty Start Date End Date Clinic, [facility] PCP - General 06/03/[address] [address] Mor Bautista MD Assigned Infectious Disease 06/12/2106/25 [address] [place] [address] documented as of this encounter
--- OUTSIDE RECORDS SUMMARY | 2022-08-08 22:52 | XMS_ITS | Encounter Summary ---
:1965 Author Organization [place] Address [address] [facility] [place] [address] Care Team Providers Name Role Phone Unavailable Primary Care Provider Unavailable Encounter Details Date Type Department Care Team Description 04/15/2009 Emergency room [facility] Evelio Lamar MD Hospital Results [address] [place] [phone] (Wo rk) Social History Tobacco Use Types [...] She states that her pain clinic in [place] gave her new prescriptions to be filled [...] pain. SOCIAL HISTORY: The patient lives in [place]. Her primary care physician is Dr. Holley De La Rosa in [place], [place]. Her chronic pain doctor is Dr. Garcia at [facility] in [place]. Thepatient has had previous cervical and lumbar [...] I did speak with Dr. Torres the [facility] who review her records with [...] Compazine. I gave her referral information for [facility] if she has further problems while she was in [place]. She plans to be here another 1-2 weeks. DISCHARGE DIAGNOSES: 1. Acute exacerbation of chronic back pains. 2. Nausea. Electronically signed on 05/01/2009 06:49 by EVELIO LAMAR MD [place]: LINDSAY#[id number] Name: KAYLIN MOSQUERA MRN: [id number] Account: [id number] : 1965 Visit Date: 04/15/2009 Document: [id number] cc: Oc De La Rosa MD documented in this encounter Plan of Treatment Not on filedocumented as of this encounter Visit Diagnoses Not on filedocumented in this encounter
--- OUTSIDE RECORDS SUMMARY | 2022-08-08 22:52 | XMS_ITS | Encounter Summary ---
:1965 Author Organization [place] Address [address] [place] [address] Care Team Providers Name Role Phone [facility], [facility] Primary Care Provide r Encounter Details Date Type Department Care Team Description [facility] ProviderAlea Social History [...] on filedocumented in this encounter Care Teams Fixed Wing Aircraft Crew Chief Relationship Specialty Start Date End Date [facility] PCP - General 06/03/171999 [place] [address] documented as of this encounter
--- OUTSIDE RECORDS SUMMARY | 2022-08-08 22:52 | XMS_ITS | Encounter Summary ---
:1965 Author Organization [place] Address [address] [facility] 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 INCONTINENCE Sh Periop Services Procedures CYSTOSCOPY, SLING TRANSVAGINAL [address] [place] [address] Phone: Referral ID Status Reason Start Date Expiration Date Visits Requ ested Visits Authorized [id number] 1 1 Encounter Details Date Type Department Care Team Description 10/14/2017 Hospital Encounter [facility] Sitbonnie, Mary Ann ss incontinence Shayne Rodrigez MD (Primary Dx) PreOP/Phase II [place] [address] [facility] [address] [place] [address] [phone] Social History Tobacco Use Types Packs/Day Years Used Date Current Every Day Smoker 0.5 Smokeless Tobacco: Never Used Alcohol Use Standard Drinks/Week Comments No 0 (1 standard drink = 0.6 oz pure alcoho l) Sex Assigned at Date Recorded Not on file documented as of this encounter Last Filed Vital Signs Vital Sign Reading Time Taken Comments Blood Pressure 121/86 10/14/2017 4:28 PM SKIN CARE TECHNICIAN Pulse - - Temperature 36.6 ??C (97.8 ??F) 10/14/2017 3:00 PM SKIN CARE TECHNICIAN Respiratory Rate 16 10/14/2017 4:28 PM SKIN CARE TECHNICIAN Oxygen Saturation 98% 10/14/2017 4:28 PM SKIN CARE TECHNICIAN Inhaled Oxygen Concentration - - Weight 73.9 kg (163 lb) 10/14/2017 12:15 PM SKIN CARE TECHNICIAN Height 152.4 cm (5') 10/14/2017 12:15 PM SKIN CARE TECHNICIAN Body Mass Index 31.83 10/14/2017 12:15 PM SKIN CARE TECHNICIAN documented in this encounter Discharge Instructions Discharge InstructionsGi King RN - 10/14/2017 1:42 PM SKIN CARE TECHNICIAN Post Bladder Sling Instructions Dr Stafford [phone] ?? For pain you may take a narcotic/acetaminophen combination prescription for pain relief. The mostcommon pain is in the upper thighs. This usually lasts 2-3 days. You may use cold packs to this areaas needed to reduce pain and bruising. Generally xsfg-sgg-cmggxyu medicines such as ibuprofen, 3-4 tablets every [...] vaginal sutures. ?? Post op appointments: Call [phone] to schedule an appointment to see your [...] know so they can address your concerns. CARE TECHNICIAN documented in this encounter Medications at Time [...] needed for muscle spasms naloxone (NARCAN) nasal [place] 4 mg into one 0 spray nostril [...] (Takes 2 x 5000 unit tablet = 71494 unit dose) ZONISAMIDE PO Take 300 mg [...] and was given a new prescription for [place]. Prescription for Oxycodone shredded. Patient took hard copy of new [place] prescription with her.; CARE TECHNICIAN Vicki Matthews RN - 10/14/2017 3:39 PM CST Patient voided, bladder scan 450cc, encouraged patient to void again. Pt voided. Bladder scan for 100-150cc. Patient comfortable and ready to go home. CARE TECHNICIAN documented in this encounter Miscellaneous Notes Op [...] note, she also underwent sling placement in [facility] and on exam I was [...] and draped in the regular fashion. A 16-[place] catheter was placed. Periurethral space was [...] MD MT: [id number] Name: ANGIE MOSQUERA Account: [id number] : 1965 Procedure Date: 10/14/2017 Document: [id number] cc: Rain Stafford MD CARE TECHNICIAN documented in this encounter Plan of Treatment Not on filedocumented as of this encounter Procedures Procedure Name Priority Date/Time Associated Diagnosis Comme nts CREATION, VAGINAL 10/14/2017 12:46 PM URGE AND STRESS SLING, WITH CYSTOSCOPY SKIN CARE TECHNICIAN INCONTINENCE,FEMAL E STRESS INCONTINENCE LAB RESULT - HIM SCAN 10/11/2017 12:00 AM SKIN CARE TECHNICIAN EKG CARDIAC - HIM SCAN 08/15/2017 12:00 AM CDT XRAY IMAGING - HIM 07/25/2017 12:00 AM SCAN CDT documented in this encounter Results LAB RESULT - HIM SCAN (10/11/2017 12:00 AM SKIN CARE TECHNICIAN) Specimen (Source) Anatomical Location Collection Method [...] ciprofloxacin (CIPRO) infusion Given 10/14/2017 12:59 PM SKIN CARE TECHNICIAN 400 mg 400 mg Routine, 400 mg, Intravenous, PRE-OP/PRE-PROCEDURE, Starting on Tue10/14/17 at 1155, For 1 dose, Irritant., Indications: Perioperative Pharmacoprophylaxis, Pre-procedure New Bag 10/14/2017 12:26 PM SKIN CARE TECHNICIAN 400 mg fentaNYL (PF) (SUBLIMAZE) injection 25-5 0 mcg Given 10/14/2017 2:01 PM SKIN CARE TECHNICIAN 50 mcg 25-50 mcg, Intravenous, EVERY 2 [...] 100 mcg., PACU Given 10/14/2017 1:50 PM SKIN CARE TECHNICIAN 50 mcg HYDROmorphone (PF) (DILAUDID) injection Given 10/14/2017 2:42 PM SKIN CARE TECHNICIAN 0.5 mg 0.3-0.5 mg 0.3-0.5 mg, Intravenous, [...] minutes., PACU/Phase II Given 10/14/2017 2:18 PM SKIN CARE TECHNICIAN 0.5 mg ondansetron (ZOFRAN) injection 4 mg Given 10/14/2017 2:18 PM SKIN CARE TECHNICIAN 4 mg 4 mg, Intravenous, EVERY 30 [...] tablet 5 mg Given 10/14/2017 2:54 PM SKIN CARE TECHNICIAN 5 mg 5 mg, Oral, ONCE, On Tue10/14/17 at 1500, For 1 dose, PACU scopolamine (TRANSDERM) 72 hr Given 10/14/2017 12:43 PM SKIN CARE TECHNICIAN 1 pa tch Behind Left Ear patch 1 patch 1 patch, Transdermal, EVERY 72 HOURS, First dose on Tue10/14/17 at 1245, Apply patch to skin, behind ear. Remove every 72 hours. Each 1.5 mg patch delivers 1 mg of scopolamine., Pre-procedure documented in this encounter Active and Recently Administered Medications Times are shown in SKIN CARE TECHNICIAN. Scheduled Medication Order 10/12/2017 10/13/2017 10/14/2017 ciprofloxacin (CIPRO) infusion 400 mg (COMPLETED) 1226 (New Bag - Provider: Rona Hanks RN)1259 (Given - Provider: Gayatri Combs APRN TURF FARMER) Routine, 400 mg, Intravenous, PRE-OP/PRE -PROCEDURE, Starting Tue10/14/17 at 1155, For 1 dose, Irritant., Indications: Perioperative Pharmacoprophylaxis, Pre-procedure oxyCODONE IR (ROXICODONE) tablet 5 mg (COMPLETED) 1454 (Given - Provider: Gi King RN) 5 mg, Oral, ONCE, Tue10/14/17 at 1500, For 1 dose, PACU scopolamine (TRANSDERM) 72 hr patch 1 patch (CANCELED) 1243 (Given - Provider: Rona aHnks RN) 1 patch, Transdermal, EVERY 72 HOURS, [...] RADHA) 0.3-0.5 mg, Intravenous, EVERY 10 MIN [place] N, other, acute pain.?May administer if Respiratory [...] 1544 documented in this encounter Care Teams Perinatal Specialist Relationship Specialty Start Date End Date [facility], [facility] PCP - General 06/03/171999 [place] [address] documented as of this encounter
--- OUTSIDE RECORDS SUMMARY | 2022-08-08 22:52 | XMS_ITS | Encounter Summary ---
:1965 Author Organization [place] Address [address] [place] [address] Care Team Providers Name Role Phone [facility] Primary Care Provide r Encounter Details Date [...] on filedocumented in this encounter Care Teams Tank Driver Relationship Specialty Start Date End Date [facility] PCP - General 06/03/171999 [place] [address] documented as of this encounter
--- OUTSIDE RECORDS SUMMARY | 2022-08-08 22:52 | XMS_ITS | Encounter Summary ---
:1965 Author Organization [place] Address [address] [place] [address]. [place] [address] Care Team Providers Name Role Phone [facility] Primary Care Provide r Encounter Details Date Type Department Care Team Description 05/20/2021 Records - [facility] Provider, [place] [employer] Health Information Management [address] [facility] [address] [place] [address] Social History Tobacco Use Types Packs/Day Years [...] athologist Signature Creatinine 0.60 0.50 - 1.50 [facility] mg/dL [facility] Specimen (Source) Anatomical Location Collection Method / Collectio n Time Received Time / Laterality Volume Blood specimen 04/20/2021 (specimen) Narrative 04/20/2021 [facility] LAB EXTERNAL RESULT Historical Provider LAB - BLOOD ORDERABLES Performing Organization Address City/State/ZIP Code Phon e Number [facility] [address] [place] [address] documented in this encounter Visit Diagnoses Not on filedocumented in this encounter Care Teams Molder Shoulder Pad Relationship Specialty Start Date End Date [facility] PCP - General 06/03/171999 [place] [address] documented as of this encounter
--- OUTSIDE RECORDS SUMMARY | 2022-08-08 22:52 | XMS_ITS | Encounter Summary ---
:1965 Author Organization [place] Address [address] [place] [address] Care Team Providers Name Role Phone [facility] Primary Care Provide r Encounter Details Date [...] on filedocumented in this encounter Care Teams General Operations Agent Relationship Specialty Start Date End Date [facility] PCP - General 06/03/171999 [place] [address] documented as of this encounter
--- OUTSIDE RECORDS SUMMARY | 2022-08-08 22:52 | XMS_ITS | Encounter Summary ---
:1965 Author Organization [place] Address [facility] [place] [address] Care Team Providers Name Role Phone Clinic, [facility] Primary Care Provide r Reason for Visit Reason Comments Back Pain Neck Pain Encounter Details Date Type Department Care Team Description 06/03/2017 Emergency [facility] Heggestad, Zoey Acute mi dline low back pain, with sciatica presence unspecified; [facility] Emergency Dep phuong Flowers PA-C Chronic neck pain [address] [facility] [place], [place] [address] [address] [facility] [phone] [place], [place] [address] (Wo rk) Social History [...] that she received adequate care at the [facility] hospitals that she has been too. Pt reports that she left [facility] yesterday after they did not address her issues. Pt states that she would like something to take her painaway and upset that has not been receiving adequate pain control. SW explained that this business writer could not provide pt with pain [...] Patient is not in the room. Tejal Evasn RN - 06/03/2017 3:45 PM CDT Patient is not in the room, presumed to have eloped. Tejal Evans RN - 06/03/2017 3:41 PM CDT plant production worker is talking with patient per [...] pain in her sternum.She was seen at [place] and evaluated for neck pain but left [...] and that she is seeing doctors at [facility] for evaluation. She reports that most of [...] 6 months ago when she ran into [employer]. She states that she called her pain management center, [facility], and that they referred her [...] a history of chronic pain who sees [facility] for her prescription for oxycodone. [...] son tells me that they went to [place] emergency room and they told the nurse that they went to [place] emergency room as well in the past few days but nobody did anything or me. Here, the patient notes that hardware in her C-spine has loosened and she is scheduled to see [facility] physician to possibly look into [...] patient and her son that per our [facility] pain policy she could have a dose of pain medication here orally but we were not doing IM or IV and she would not get a prescription to go home with. During the work-up, I was unaware that the patient requested to see social work and social work came down to see them and came to talk to me. The forensic social worker states that the patient wanted to complain about our care to her but she had no complaints of social issues at home. plant production worker referred her back to me. [...] I did also speak to a P.A. production planning supervisor for [facility], [place], who agreed with [...] observations and the provider's statements to me. [facility] EMERGENCY DEPARTMENT Zoey López PA-C [...] Region Laterality Modality Spine, [facility]BR[facility] CT MSK, [facility] CT SPINE Compu mary Tomography [...] dose documented in this encounter Care Teams Manager Of Pmo Relationship Specialty Start Date End Date [facility] PCP - General 06/03/171999 [place] [address] documented as of this encounter
--- OUTSIDE RECORDS SUMMARY | 2022-08-08 22:52 | XMS_ITS | Encounter Summary ---
:1965 Author Organization [place] Address [address] [place] [address] Care Team Providers Name Role Phone Clinic, [facility] Primary Care Provide r Encounter Details Date Type Department Care Team Description 03/20/2021 Records - [facility], [facility] [address] [place] [address] [phone] Social History Tobacco Use Types Packs/Day Years [...] Bacterial Culture Routine (03/20/2021 6:00 AM CDT) [facility] Method Time Signature Culture STAPHYLOCOCCUS 03/27/2021 [facility] EPIDERMIDIS (A) 8:01 AM CDT [facility] Comment: Staphylococcus epidermidis Isolated from broth only Gram Stain 4+ Polymorphonuclear 03/27/2021 8:01 AM HEALTH Result leukocytes CD[facility] Gram Stain No organisms seen 03/27/2021 8:01 AM [facility]ALTH Result CDT [facility] Specimen Anatomical Collection Method [...] MICRO GENERAL ORDERABL ES Performing Organization Address City/[facility] [place] [address] [address] [facility] Anaerobic Bacterial Culture Routine (03/20/2021 6:00 AM CDT) [facility] Method Time Signature Culture No anaerobic 03/23/2021 [facility] organisms 7:18 AM CDT [facility] Specimen Anatomical Collection Method Collection Time Receive d Time (Source) Location / / Volume Laterality Body fluid Non-blood 03/20/2021 6:00 AM 1 sample Collection / CDT 12:05 PM CDT (specimen) Unknown [facility] LAB - MICRO GENERAL ORDERABL ES Performing Organization Address City/[facility]/[place] [address] [address] [facility] (ABNORMAL) Cell count with differential fluid (03/20/2021 6:00 AM CDT) [facility] Method Time Signature Color Red 03/20/2021 [facility] 2:04 PM CDT [facility] Clarity Turbid 03/20/2021 [facility] 2:04 PM CDT [facility] Total Nucleated 42,864 (H) 0 - 99 03/20/2021 [facility] Cells /uL 2:04 PM CDT [facility] RBC, Fluid >50,000 <50,000 03/20/2021 [facility] (A) /ul 2:04 PM CDT [facility] % Neutrophils 91 (H) <=25 % 03/20/2021 [facility] 2:04 PM CDT [facility] % Lymphocytes 8 <=78 % 03/20/2021 [facility] 2:04 PM CDT [facility] Monocyte % 1 <=71 % 03/20/2021 [facility] 2:04 PM CDT [facility] Macrophage % 03/20/2021 [facility] 2:04 PM CDT [facility] Mesothelials, 03/20/2021 [facility] Fluid 2:04 PM CDT [facility] % Eosinophils 03/20/2021 [facility] 2:04 PM CDT [facility] % Other Cells 03/20/2021 [facility] 2:04 PM CDT [facility] Specimen Anatomical Collection Method Collection Time Receive d Time (Source) Location / / Volume Laterality Body fluid BODY FLUID SAMPLE Non-blood 03/20/2021 6:00 AM 02/27 sample / Unknown Collection / CDT 12:05 PM CDT (specimen) Unknown Narrative [facility] - 03/20/2021 2:04 PM CDT Large clot present; count may be inaccur ate. [facility] LAB - BODY FLUIDS ORDERABLES Performing Organization Address City/State/ZIP Code Phon [place] [address] [phone] [place] [facility] [address] [place] [phone] [place] [address] [place] [address], [facility] [phone] documented in this encounter Visit Diagnoses Not on filedocumented in this encounter Care Teams Plastic Cablemaking Machine Operator Relationship Specialty Start Date End Date Clinic, [facility] PCP - General 06/03/17[address] [place] [address] documented as of this encounter
--- OUTSIDE RECORDS SUMMARY | 2022-08-08 22:52 | XMS_ITS | Encounter Summary ---
:1965 Author Organization [place] Address [address] [place] [address] Care Team Providers Name Role Phone [employer], [facility] Primary Care Provide r Encounter Details Date Type Department Care Team Description 03/03/2021 [facility] CONVERSION ProviderAlea Social History Tobacco [...] on filedocumented in this encounter Care Teams Clerk Carrier Relationship Specialty Start Date End Date [facility] PCP - General 06/03/171999 [place] [address] documented as of this encounter
--- OUTSIDE RECORDS SUMMARY | 2022-08-08 22:52 | XMS_ITS | Clinical Summary ---
:1965 Author Organization [place] Address [facility] [place] [address] Care Team Providers Name Role Phone Clinic, [facility] Primary Care Provide r Allergies Active Allergy Reactions Severity Noted Date Comments Acyclovir Rash Low 07/18/2016 Adhesive Tape 07/18/2016 Amoxicillin 07/18/2016 Benzoin Blisters 10/13/2017 Cephalosporins Rash Low 10/13/2017 Gabapentin 05/17/2017 Soy Allergy 10/13/2017 [place] Rash Low 10/13/2017 Sulfamethoxazole-Trimethoprim GI Disturbance 7 [...] breath / dyspnea or wheezing naloxone (NARCAN) [place] 4 mg into 0 Active nasal spray [...] (Takes 2 x 5000 unit tablet = 98279 unit dose) Esomeprazole Magnesium Take 40 mg [...] CDT Respiratory Rate 16 10/14/2017 4:28 PM MANAGER FIBER Oxygen Saturation 98% 10/14/2017 4:28 PM MANAGER FIBER Inhaled Oxygen Concentration - - Weight 74.8 [...] this topic Medical Devices Implanted Type Area Outside Plant Cable Engineer Device Shelf Model / Identifier Expiration Serial / Date Lot Device Tvt Obturator Laser [id number] Other N/A: [employer] 04/27/2018 [id number] / Implanted: Qty: 1 on 10/14/2017 by Rain Herring MD at [facility]- / [id number] Insurance Payer Benefit Plan / Subscriber ID Effective Dates Phone Addre ss Type Group MEDICARE MEDICARE [id number] 2012-Prese [phone] ATTN [facility] Medicare nt 0 [address] [place] [address] MEDICA MEDICA ACCESS [id number] 2016-Presen [phone] [address] [address] H[address] [place] [address] Care Teams Vegetable Trimmer Relationship Specialty Start Date End Date Clinic, [facility] PCP - General 06/03/171999 [place] [address]
--- OUTSIDE RECORDS SUMMARY | 2022-08-08 22:52 | XMS_ITS | Encounter Summary ---
:1965 Author Organization [place] Address [address] [place] [address] Care Team Providers Name Role Phone [facility], [facility] Primary Care Provide r Encounter Details Date Type Department Care Team Description [facility]2021 [facility] ProviderAlea Social History [...] on filedocumented in this encounter Care Teams Escalator Operator Relationship Specialty Start Date End Date [facility] PCP - General 06/03/171999 [place] [address] documented as of this encounter
--- OUTSIDE RECORDS SUMMARY | 2022-08-08 22:52 | XMS_ITS | Encounter Summary ---
:1965 Author Organization [place] Address [address] [place] [address] Care Team Providers Name Role Phone Amna Fletcher Primary Care Provider Reason for Visit Reason Comments Chest Wall Pain Encounter Details Date Type Department Care Team Description 07/18/2016 [facility], [facility]; [facility] Emergency [facility] phuong Ross MD Closed fracture of rib of right side, in itial encounter [address] [facility] [place] [address] [address] [facility] [address] [place] [address] (Wo rk) Social History Tobacco Use Types [...] your healthcare provider ?? Congested cough ?? [phone] [employer]. [address] [place] [address]. All rights reserved. This information is not intended as a substitute for professional medical care. Always follow your healthcare professional's instructions. AttachmentsThe following attachments cannot be sent through Care Everywhere.BONE BRUISE (BONE CONTUSION), UNDERSTANDING (BULGARIAN)documented in this encounter Medications at Time of [...] surgery Bilateral knee arthroplasty Gastric bypass Cholecystectomy Mastic Sprayer surgery Family History: History reviewed. No pertinent [...] Department Course ECG (01:17:19): Rate 69 bpm. IL interval 176. QRS duration 94. QT/QTc 408/437. [...] hours for 10 days Adrian Vera 07/18/2016 [facility] EMERGENCY DEPARTMENT IAdrian am serving as a scribe at 1:03 AM on 07/18/2016 to document services personally performed by Radha Espana MD based on my observations and the provider's statements to me. Radha Espana MD 07/18/16 [address], RADHA - 07/18/2016 12:48 AM [...] EKG 12 lead (07/18/2016 1:17 AM CDT) [facility] gist Method Time Signature Interpretation ECG [...] patch (COMPLETED) 021 (Given - Provider: Myesha eLwis RN - Comment: right ribcage, sternum) 2 [...] dose documented in this encounter Care Teams Drill Instructor Relationship Specialty Start Date End Date Amna Fletcher PCP - General 07/18/16 05/16/17 [facility] [address] [place] [address] documented as of this encounter
--- OUTSIDE RECORDS SUMMARY | 2022-08-08 22:52 | XMS_ITS | Encounter Summary ---
:1965 Author Organization [place] Address [address] [place] [address] Care Team Providers Name Role Phone Unavailable Primary Care Provider Unavailable Reason for Visit Reason Onset Date Comments Previsit 12/11/2014 12/19/[address] Juice mackenzie Encounter Details Date Type Department Care Team Description 12/11/2014 PRE VISIT Yasmin, Previsit ( OV [facility] Shauna Alejo MD with Dr Humphrey) [place] [address] [place], [place] [phone] (Wo rk) Social History Tobacco Use Types Packs/Day Years Used Date Never Assessed Sex Assigned at Date Recorded Not on file documented as of this encounter Plan of Treatment Not on filedocumented as of this encounter Visit Diagnoses Not on filedocumented in this encounter
--- OUTSIDE RECORDS SUMMARY | 2022-08-08 22:52 | XMS_ITS | Encounter Summary ---
:1965 Author Organization [place] Address [address] [place] [address] Care Team Providers Name Role Phone Unavailable Primary Care Provider Unavailable Encounter Details Date Type Department Care Team Description 07/29/2011 Emergency room [facility] EMERGENCY NURY CISNEROS Results [address] [place], [place] [address] Social History Tobacco Use Types Packs/Day Years Used Date Never Assessed Sex Assigned at Date Recorded Not on file documented as of this encounter Progress Notes Interface, Senior Premium Auditor - 07/31/2011 10:23 AM CDT FINAL Chief [...] she recently came to the area from [place] to visit her father (approximately two weeks [...] with a friend. The patient resides in [place], and is here in the [facility] area visiting her father. The patient states that she has been smoking one pack of cigarettes per day since 1973. Her primary care physician is Dr. Holley De La Rosa in [place], [place]. \n Her chronic pain doctor is Dr. Garcia at [facility] in [place]. - Is negative for Illicit drug use, [...] MT: JOSÉ MIGUEL Name: KAYLIN MOSQUERA Account: [id number] : 1965 Visit Date: 07/29/2011 Document: [id number] documented in this encounter Plan of Treatment Not on filedocumented as of this encounter Visit Diagnoses Not on filedocumented in this encounter
--- OUTSIDE RECORDS SUMMARY | 2022-08-08 22:52 | XMS_ITS | Encounter Summary ---
:1965 Author Organization [place] Address [address] [place] [address] Care Team Providers Name Role Phone [facility], [facility] Primary Care Provide r Encounter Details Date Type Department Care Team Description [facility]20[facility] [...] on filedocumented in this encounter Care Teams Flask Maker Relationship Specialty Start Date End Date [facility] PCP - General 06/03/171999 [place] [address] documented as of this encounter
--- OUTSIDE RECORDS SUMMARY | 2022-08-08 22:52 | XMS_ITS | Encounter Summary ---
:1965 Author Organization [place] Address [facility] [place] [address] Care Team Providers Name Role Phone Clinic, [facility] Primary Care Provide r Reason for Visit Reason Comments Consult pt here with her neighbor Arin calderon, Encounter Details Date Type Department Care Team Description 05/14/2021 Office Visit - [facility] Mor Bautista Acute he matogenous [facility] Sheldon Patel MD osteomyelitis of right [address] [place] [address] shoulder reg ion (H) [address] [facility] [phone] [place], [place] [phone] [phone] Social History Tobacco Use Types Packs/Day Years [...] disease history: Reviewed in the notes from [place] Medications: Reviewed prior to admission meds as [...] ?? GRAM STAIN? Gram stain performed by [place], [place] ?? Specimen Collected on Tissue - [...] this duration if possible. My cell is [id number]. I wrote for 90 days and warned pt about sunburn risk. She has hx of skin cancer. 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
--- OUTSIDE RECORDS SUMMARY | 2022-08-08 22:53 | XMS_ITS | Encounter Summary ---
:1965 Author Organization [facility] Address [address], [place] [address] Care Team Providers Name Role Phone Jose Holden MD Primary Care Provider Reason for Referral Procedure/Equipment (Routine) - Closed Specialty Diagnoses / Procedures Referred By Contact Refer red To Contact Diagnoses Intractable acute post-traumatic headache Blanka Mead APRN, CN P [address] [place] [address] Referral ID Status Reason Start Date Expiration Date Visits Requ ested Visits Authorized [id number] Closed 02/16/2019 05/17/2020 1 1 Scheduling Instructions . herapies (Routine) - Closed Specialty Diagnoses / Procedures Referred By Contact Refer red To Contact Diagnoses Impairment of balance Dizziness Blanka Mead APRN, CN P [address] [place] [address] Referral ID Status Reason Start Date Expiration Date Visits Requ ested Visits Authorized [id number] Closed 02/16/2019 04/17/2019 1 1 Scheduling Instructions Your provider has recommended an appoint ment with a [facility] Physical Therapist. Please stop at the clinic check out desk for assistance with scheduling or if you prefer to call for your appointment you may call [facility] Outpatient Rehabilitation at [phone]. We suggest you call your [facility] insurance company about your coverage and benefits for this appointment. Reason for Visit Reason Comments Consult, New Patient Consult/Transfer Care (Routine) - Closed Specialty Diagnoses / Procedures Referred By Contact Refer red To Contact Diagnoses Traumatic brain injury, without loss of consciousness, initial encounter (HRC) Tony Pittman MD [address] [place] [address] Referral ID Status Reason Start Date Expiration Date Visits Requ ested Visits Authorized [id number] Closed 12/26/2018 03/26/2020 1 1 Encounter Details Date Type Department Care Team Description 02/16/2019 Office Visit [facility], Impairment of balance (Primary Dx); [facility] Blanka Coulter s; Physical Medicine NIKKY Chavez, Intractable acute post-traum atic headache [address] [facility] [place] [address] [address] [facility] [phone] [place] [address] Social History Tobacco Use Types [...] Body Mass Index 33.01 12/26/2018 1:48 PM PREPLEATER documented in this encounter Patient Instructions Patient [...] If you need to reschedule, please call [phone] as soon as you know you will not be able to make the appointment. If you have any questions or concerns, please call the clinic at [phone]. ?? If tests are needed, you will [...] treatment plan is please contact us at [phone] or send us a secure message via [employer]. If you need follow-up in the future, please call [phone] for an appointment. If you cannot get a time that satisfies you, please let us know what times work for you and we will do our best to accommodate you. Thank you for choosing Blanka Mead APRN, CNP and [facility]. documented in this [...] ER right away. She was seen at [facility]. According to the note from [facility]: the patient fell approximately 20 hours before being seenon 11/10/2018 with a presentation of headache neck pain left shoulder pain left knee pain left hip pain out of proportion to the mechanism of injury. The patient's a 53-year-old female well-known to [facility] with multiple comorbid medical and psychosocial [...] She sees Dr. Bullard with neurosurgery at [facility]. She has a past medical history [...] anterior cervical fusion 2016 Dr. Ihsan Brooke, [facility] Family History: Family History Problem Relation [...] ??? medical cannabis patient certified Take 1 [place] by mouth . ??? naloxone (NARCAN) 4 [...] EXAM: XR CERVICAL SPINE AP/LAT UPRIGHT LOCATION: [facility] DATE/TIME: 12/26/2018 1:44 PM ?? INDICATION: [...] able to review her head CT from [facility] as well as her cervical spine CT. Findings obtained by [place] on 11/10/2018 showed CSF spaces within normal [...] headache documented in this encounter Care Teams Clinical Trial Associate Relationship Specialty Start Date End Date Jose Holden MD PCP - General Otolaryngology 12/14/17 [facility] [place] [address] documented as of this encounter
--- OUTSIDE RECORDS SUMMARY | 2022-08-08 22:53 | XMS_ITS | Encounter Summary ---
:1965 Author Organization [facility] Address [address] [place] [address] Care Team Providers Name Role Phone Jose Holden MD Primary Care Provider [phone] Reason for Visit Reason Comments Revisit repeat injections Occipital VS Trigger point Encounter Details Date Type Department Care Team Description 02/06/2019 Office Visit [facility]man, Bilateral occ ipital neuralgia (Primary Dx); [facility] Carole Bowden Myalgia; Pain Management [address] Fibromyalgia; [address] [place], [place] Cervical vertebral fusion; [place] [address] Spondylosis of cervical region without m yelopathy or radiculopathy [phone] Social History Tobacco Use Types Packs/Day Years [...] MD - 02/06/2019 2:30 PM CDT Impression: Agnie was seen today for revisit. Diagnoses and [...] treatment plan is, please contact me via [employer] online messaging or call the office at and ask to speak to a nurse. Tony Pittman MD Pain Medicine documented in this encounter Progress Notes Tony Pittman MD - 02/06/2019 2:30 PM CDT [facility] Follow-up Visit 02/06/2019 Interim history: [...] Oxycodone 5 mg Q6H - Prescribes by [facility], has been taking for [...] at a pain clinic in the past. [facility] physical therapy: Past Acupuncture: [...] anterior cervical fusion 2017 Dr. Ihsan Brooke, [facility] past surgical history reviewed with patient. [...] ??? medical cannabis patient certified Take 1 [place] by mouth . ??? naloxone (NARCAN) 4 [...] facility-administered medications prior to visit. [place] and [place] Prescription Monitoring Program reviewed Allergies: Allergies Allergen [...] in her mother. Social history:she lives in [place], [place].she is not currently working. Smokin/2 ppd. [...] These are unchanged from previous. Barriers: 1. oysterman opioid use Plan: 1. Patient education: I [...] Medicine Physical Medicine and Rehabilitation [facility] This note created using speech-recognition [...] myelopathy documented in this encounter Care Teams Informatics Analyst Relationship Specialty Start Date End Date Jose Holden MD PCP - General Otolaryngology 12/14/[address] [place] [address] documented as of this encounter
--- OUTSIDE RECORDS SUMMARY | 2022-08-08 22:53 | XMS_ITS | Encounter Summary ---
:1965 Author Organization [facility] Address [address] [place] [address] Care Team Providers Name Role Phone Jose Holden MD Primary Care Provider [phone] Encounter Details Date Type Department Care Team Description 03/06/2019 Consent for [facility] Procedure/Treat [facility] Tony Alvarado MD [facility] ent Pain Management [address] TREATMENT [address] [place] [phone] Social History Tobacco Use Types Packs/Day Years [...] on filedocumented in this encounter Care Teams Logistics Planning Manager Relationship Specialty Start Date End Date Jose Holden MD PCP - General Otolaryngology 12/14/[address] [place] [address] documented as of this encounter
--- OUTSIDE RECORDS SUMMARY | 2022-08-08 22:53 | XMS_ITS | Encounter Summary ---
:1965 Author [facility] Address [address] [place] [address] Care Team Providers Name Role Phone Jose Holden MD Primary Care Provider [phone] Reason for Visit Reason Comments Revisit trigger point injections Encounter Details Date Type Department Care Team Description 06/29/2018 Office Visit [facility] Myalgia (Primary Dx); [facility] Raul Alvarado MD Medical marijuana use; Management [address] H/O cervical spinal arthrodesis; [address] [place], [place] [address] [phone] Social History Tobacco Use Types Packs/Day Years [...] treatment plan is, please contact me via [employer] online messaging or call the office at and ask to speak to a nurse. Tony Pittman MD Pain Medicine documented in this encounter Progress Notes Tony Pittman MD - 06/29/2018 10:20 AM CDT [facility] Follow-up Visit 06/29/2018 Interim history: [...] Oxycodone 5 mg Q6H - Prescribes by [facility], has been taking [...] at a pain clinic in the past. [facility] physical therapy: Past [...] fusion 2016 Dr. Ihsan Brooke, [facility] past surgical [...] ??? medical cannabis patient certified Take 1 [place] by mouth . ??? naloxone (NARCAN) 4 [...] Gain No facility-administered medications prior to visit. [place] and [place] Prescription Monitoring Program reviewed Allergies: [...] in her mother. Social history:she lives in [place], [place].she is not currently working. Smokin/2 ppd. [...] instead in the future Barriers: 1. intermediate card tender opioid use Plan: 1. Patient education: I [...] Pain Medicine Physical Medicine and Rehabilitation [facility] Pain Management This document serves as a record of services personally performed by Tony Pittman MD. It was created on his behalf by Gillian Harding, a trained emergency medical technician basic. The creation of this record is based [...] disorder documented in this encounter Care Teams Manager Labor Relations Relationship Specialty Start Date End Date Jose Holden MD PCP - General Otolaryngology 12/14/[address] [place] [address] documented as of this encounter
--- OUTSIDE RECORDS SUMMARY | 2022-08-08 22:53 | XMS_ITS | Encounter Summary ---
:1965 Author Organization [facility] Address [address] [place] [address] Care Team Providers Name Role Phone Jose Holden MD Primary Care Provider [phone] Encounter Details Date Type Department Care Team Description 06/20/2018 Consent for [facility] Procedure/Treat [facility] Tony Alvarado MD FOR TX/PROCEDURE ent Pain Management [address] [place] [phone] Social History Tobacco Use Types Packs/Day Years [...] filedocumented in this encounter Care Teams Senior Ux Developer Relationship Specialty Start Date End Date Jose Holden MD PCP - General Otolaryngology 12/14/[address] [place], [place] [phone] documented as of this encounter
--- OUTSIDE RECORDS SUMMARY | 2022-08-08 22:53 | XMS_ITS | Encounter Summary ---
:1965 Author Organization [facility] Address [address], [place] [address] Care Team Providers Name Role Phone Jose Holden MD Primary Care Provider [phone] Reason for Referral Therapies (Routine) - Closed Specialty Diagnoses / Procedures Referred By Contact Refer red To Contact Diagnoses S/P cervical spinal fusion Pete Gonzalez MD [address] [place] [address] Referral ID Status Reason Start Date Expiration Date Visits Requ ested Visits Authorized [id number] Closed 08/16/2018 10/15/2018 1 1 [facility]uling [facility]ructions [facility] has recommended an appoin tment with a [facility] Physical Therapist. Please stop at the clinic check out desk for assistance with scheduling or if you prefer to call for your appointment you may call [facility] Outpatient Rehabilitation at [phone]. We suggest you call your [employer] insurance company about your coverage and benefits for this appointment. Encounter Details Date Type Department Care Team Description 07/07/2018 Telephone [facility] Neuroscience Pete Gonzalez MD Center Neurosurgery/Ortho [address] [facility] Spine [place], [place] [address] [place] [address] [place] [address] [phone] Social History Tobacco Use Types Packs/Day Years [...] Del Toro - 08/16/2018 1:41 PM CDT Hand Baseball Sewer contacted patient 08/16-faxed order to [facility] [phone] per patient request Chava Simon RN - [...] Name Type Priority Associated Diagnoses [facility] Referral Routine S/P cervical spinal fusi on Ordered: 08/16/2018 documented as of this encounter Visit Diagnoses Diagnosis S/P cervical spinal fusion - Primary Arthrodesis status documented in this encounter Care Teams Slasher Sawyer Relationship Specialty Start Date End Date Jose Holden MD PCP - General Otolaryngology 12/14/17 [place] [address] documented as of this encounter
--- OUTSIDE RECORDS SUMMARY | 2022-08-08 22:53 | XMS_ITS | Encounter Summary ---
:1965 Author Organization [facility] Address [address] [place] [address] Care Team Providers Name Role Phone Jose Holden MD Primary Care Provider [phone] Encounter Details Date Type Department Care Team Description 07/10/2018 Consent for [facility] Procedure/Treat [facility] Tony Alvarado MD FOR TX/PROCEDURE ent Pain Management [address] [place] [phone] Social History Tobacco Use Types Packs/Day Years [...] on filedocumented in this encounter Care Teams Investment Specialist Relationship Specialty Start Date End Date Jose Holden MD PCP - General Otolaryngology 12/14/[address] [place], [place] [phone] documented as of this encounter
--- OUTSIDE RECORDS SUMMARY | 2022-08-08 22:53 | XMS_ITS | Encounter Summary ---
:1965 Author Organization [facility] Address [address] [place] [address] Care Team Providers Name Role Phone Jose Holden MD Primary Care Provider [phone] Reason for Referral Procedure/Equipment (Routine) - Closed Specialty Diagnoses / Procedures Referred By Contact Refer red To Contact Diagnoses Neck pain Pete Gonzalez MD [address] [place] [address] Referral ID Status Reason Start Date Expiration Date Visits Requ ested Visits Authorized [id number] Closed 06/14/2018 12/11/2018 1 1 Scheduling Instructions [...] Dx); Neuroscience Center Neck pain Neurosurgery/Ortho [address] [facility] Spine S [address] [place] [address] [place] [address] Social History Tobacco Use Types Packs/Day Years [...] your understanding. Please call the Neurosurgery Center [phone] with any further questions or concerns or [...] Cervicalgia documented in this encounter Care Teams Agricultural Specialist Relationship Specialty Start Date End Date Jose Holden MD PCP - General Otolaryngology 12/14/17 [place] [address] documented as of this encounter
--- OUTSIDE RECORDS SUMMARY | 2022-08-08 22:53 | XMS_ITS | Encounter Summary ---
:1965 Author Organization [facility] Address [address] [place] [address] Care Team Providers Name Role Phone Jose Holden MD Primary Care Provider [phone] Encounter Details Date Type Department Care Team Description 08/14/2018 Consent for [facility] Procedure/Treat [facility] Tony Alvarado MD FOR TX/PROCEDURE ent Pain Management [address] [place] [phone] Social History Tobacco Use Types Packs/Day Years [...] on filedocumented in this encounter Care Teams Regulatory Compliance Officer Relationship Specialty Start Date End Date Jose Holden MD PCP - General Otolaryngology 12/14/[address] [place], [place] [phone] documented as of this encounter
--- OUTSIDE RECORDS SUMMARY | 2022-08-08 22:53 | XMS_ITS | Encounter Summary ---
:1965 [facility] Address [address], [place] [address] Care Team Providers Name Role Phone Jose Holden MD Primary Care Provider [phone] Reason for Visit Reason Comments Revisit occipital nerve block Encounter Details Date Type Department Care Team Description 07/10/2018 Office Visit [facility] occipital neuralgia (Primary Dx); Neuroscience Center Pain RMD Myalgia; Management [address] H/O cervical spinal arthrodesis [address] [place] [address] [phone] Social History Tobacco Use Types Packs/Day Years [...] treatment plan is, please contact me via [employer] online messaging or call the office at and ask to speak to a nurse. Tony Pittman MD Pain Medicine documented in this encounter Progress Notes Tony Pittman MD - 07/10/2018 3:45 PM CDT [facility] Follow-up Visit 07/10/2018 Interim history: [...] Oxycodone 5 mg Q6H - Prescribes by [facility], has been taking for many [...] at a pain clinic in the past. [facility] physical therapy: Past Acupuncture: None [...] anterior cervical fusion 2017 Dr. Ihsan Brooke, [facility] past surgical history reviewed with patient. [...] ??? medical cannabis patient certified Take 1 [place] by mouth . ??? naloxone (NARCAN) [...] 0 No facility-administered medications prior to visit. [place] and [place] Prescription Monitoring Program reviewed Allergies: Allergies Allergen [...] in her mother. Social history:she lives in [place], [place].she is not currently working. Smokin/2 ppd. 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 Patient education: [...] [facility] This document serves as a record of services personally performed by Tony Pittman MD. It was created on his behalf by Gillian Harding, a trained biomedical manager. The creation of this record is based [...] status documented in this encounter Care Teams Chemical Compounder Relationship Specialty Start Date End Date Jose Holden MD PCP - General Otolaryngology 12/14/[address] [place], [place] [address] [address] documented as of this encounter
--- OUTSIDE RECORDS SUMMARY | 2022-08-08 22:53 | XMS_ITS | Encounter Summary ---
:1965 Author [facility] Address [address], [place] [address] Care Team Providers Name Role Phone Jose Holden MD Primary Care Provider [phone] Reason for Visit Reason Comments Injection Encounter Details Date Type Department Care Team Description 09/04/2018 Telephone [facility] Pete Gonzalez MD Injection Center Neurosurgery/Ortho [address] [facility] Spine [place], [place] [address] [address] [place] [address] [phone] Social History Tobacco Use Types Packs/Day Years [...] 09/05/2018 10:13 AM CDT Per Sirisha Maher, RESEARCH AND DEVELOPMENT ENGINEER: cannot write letter. Okay for repeat bilateral [...] Cervicalgia documented in this encounter Care Teams Tunnel Kiln Operator Relationship Specialty Start Date End Date Jose Holden MD PCP - General Otolaryngology 12/14/17 [place] [id number] documented as of this encounter
--- OUTSIDE RECORDS SUMMARY | 2022-08-08 22:53 | XMS_ITS | Encounter Summary ---
:1965 Author Organization [facility] Address [address] [place] [address] Care Team Providers Name Role Phone Jose Holden MD Primary Care Provider [phone] Reason for Referral Therapies (Routine) - Closed Specialty Diagnoses / Procedures Referred By Contact Refer red To Contact Diagnoses S/P cervical spinal fusion Pete Gonzalez MD [address] [place] [address] Referral ID Status Reason Start Date Expiration Date Visits Requ ested Visits Authorized [id number] Closed 06/26/2018 08/25/2018 1 1 Scheduling Instructions Your provider has recommended an appoint ment with a [facility] Physical Therapist. Please stop at the clinic check out desk for assistance with scheduling or if you prefer to call for your appointment you may call [facility] Outpatient Rehabilitation [place] at [phone]. We suggest yo u call your health insurance company about your coverage and benefits for this appo intment. Reason for Visit Reason Comments RESULTS, TEST Orders Needed Encounter Details Date Type Department Care Team Description 06/22/2018 Telephone [facility] Pete Gonzalez MD RESULTS, TEST; Orders Neuroscience Center [address] [facility] eded Neurosurgery/Ortho S [address] [place] [address] [place] [id number] (Wo rk) Social History Tobacco Use Types [...] getting a stimulator or morphine pump through [facility]. She is wondering if she should wait and discuss possible surgical options with Dr. Gonzalez or just get the stimulator or morphine pump? Please advise. Chava Simon RN 06/28/2018, 8:45 AM Michael Cruz - 06/28/2018 8:25 AM CDT Patient calling in regards to her imaging results. Compliance Counsel relayed message from Lois Pham PA-C. Patient states that she would like a return call. Patient states she doesn't understand why there are no acute concerns? She will be seeing [facility] to discuss getting a stimulator or morphine pump. Patient would like to know if she should move forward with this from Neurosurgery standpoint. Please call patient to further discuss and advise. Michael Cruz 06/28/2018, 8:27 AM Chava Simon RN - 06/28/2018 8:24 AM CDT [facility] Chava Simon RN 06/28/2018, 8:26 AM [...] Michael Cruz - 06/26/2018 11:18 AM CDT Compliance Counsel reached patient and relayed message below to her. Patient expressed her appreciation. Per herrequest order has been sent to [facility] outpatient rehabilitation services at [phone] with a note to have them call patient to schedule. Patient aware they will reach out to schedule her for PT. She also states she picked up a copy of her imaging and they relayed that they had alreadysent one. Compliance Counsel called their radiology department and spoke to Selena who states a CD was not mailed out and she is not sure why. She took down clinic address of [address] [address] and stated she would send one out [...] sure she has had this sent from [facility] for team to review. Chava [...] of CT and MRIthat were done at [facility] on 06/20. Informed pt that [...] status documented in this encounter Care Teams Operator Control Room Relationship Specialty Start Date End Date Jose Holden MD PCP - General Otolaryngology 12/14/17 Formerly named [facility] [place] [address] documented as of this encounter
--- OUTSIDE RECORDS SUMMARY | 2022-08-08 22:53 | XMS_ITS | Encounter Summary ---
:1965 Author Organization [facility] Address [address] [place] [address] Care Team Providers Name Role Phone Jose Holden MD Primary Care Provider [phone] Encounter Details Date Type Department Care Team Description 04/09/2019 Notes/Orders [facility] Neuroscience Jose Carias, Center Final Block Press Operator apy PT [address] [place] [address] [place] [address] [phone] (Wo rk) Social History Tobacco Use Types [...] CDT PHYSICAL THERAPY DISCHARGE NOTE Angie Mosquera [id number] Payor: MEDICARE / Plan: MEDICARE / Product [...] on filedocumented in this encounter Care Teams Pouncer Machine Relationship Specialty Start Date End Date Jose Holden MD PCP - General Otolaryngology 12/14/17 [place] [address] documented as of this encounter
--- OUTSIDE RECORDS SUMMARY | 2022-08-08 22:53 | XMS_ITS | Encounter Summary ---
:1965 [facility] Address [address] [place] [address] Care Team Providers Name Role Phone Jose Holden MD Primary Care Provider [phone] Encounter Details Date Type Department Care Team [...] 11/10/2018 12:00 AM R esults for this SUPERVISOR RESIDENTIAL procedure are i n the results section. documented in this encounter Results CT SCAN SPINE--SCAN (11/10/2018 12:00 AM SUPERVISOR RESIDENTIAL) Anatomical Region Laterality Modality Other Specimen (Source) Anatomical Location Collection Method / Collectio n Time Received Time / Laterality Volume 11/10/2018 Narrative This result has an attachment that is no t available. Phy No Primary/Referring DUMMY/OTHER/AR documented in this encounter Visit Diagnoses Not on filedocumented in this encounter Care Teams Linux Unix System Administrator Relationship Specialty Start Date End Date Jose Holden MD PCP - General Otolaryngology 12/14/[address] [place] [address] documented as of this encounter
--- OUTSIDE RECORDS SUMMARY | 2022-08-08 22:53 | XMS_ITS | Encounter Summary ---
:1965 Author [facility] Address [address] [place] [address] Care Team Providers Name Role Phone Jose Holden MD Primary Care Provider [phone] Encounter Details Date Type Department Care Team [...] on filedocumented in this encounter Care Teams Full Decator Operator Relationship Specialty Start Date End Date Jose Holden MD PCP - General Otolaryngology 12/14/17 [address] [place] [address] documented as of this encounter
--- OUTSIDE RECORDS SUMMARY | 2022-08-08 22:53 | XMS_ITS | Encounter Summary ---
:1965 Author Organization [facility] Address [address] [place] [address] Care Team Providers Name Role Phone Jose Holden MD Primary Care Provider [phone] Reason for Referral Consult/Transfer Care (Routine) - Closed Specialty Diagnoses / Procedures Referred By Contact Refer red To Contact Diagnoses Traumatic brain injury, without loss of consciousness, initial encounter (HRC) Tony Pittman MD [address] [place] [address] Referral ID Status Reason Start Date Expiration Date Visits Requ ested Visits Authorized [id number] Closed 12/26/2018 03/26/2020 1 1 Scheduling Instructions Your provider has recommended an appoint ment with [facility]. You may call to schedule your appointment. If you prefer, a ribbon blockmaker will contact you the [facility] the next 3 business days to assist you in setting up this appointment. IRATORY PHYSICIAN Reason for Visit Reason Comments Revisit Bilateral cervical/thoracic trigger point injections Encounter Details Date Type Department Care Team Description 12/26/2018 Office Visit Tony Huggins occipital neuralgia (Primary Dx); [facility] Pain RMD Myalgia; Management [address] H/O cervical spinal arthrodesis; [address] [place], [place] Traumatic brain injury, with out loss of consciousness, initial encounter (HRC) [place] [address] [phone] Social History Tobacco Use Types Packs/Day Years [...] Comments Blood Pressure 115/72 12/26/2018 2:48 PM RESPIRATORY PHYSICIAN Pulse 70 12/26/2018 2:48 PM RESPIRATORY PHYSICIAN Temperature - - Respiratory Rate - - [...] treatment plan is, please contact me via [employer] online messaging or call the office at and ask to speak to a nurse. Tony Pittman MD Pain Medicine IRATORY PHYSICIAN documented in this encounter Progress Notes Tony Pittman MD - 12/26/2018 2:15 PM CST [facility] Follow-up Visit 08/14/2018 Interim history: [...] Patient continues to get chronic oxycodone from [facility] in [place] and does not planon decreasing her dosage. [...] Oxycodone 5 mg Q6H - Prescribes by [facility], has been taking [...] at a pain clinic in the past. [facility] physical therapy: Past [...] ??? medical cannabis patient certified Take 1 Shirley by mouth . ??? naloxone (NARCAN) 4 [...] Gain No facility-administered medications prior to visit. [place] and [facility] Pres[place] [facility] reviewed Allergies: Allergies Allergen [...] in her mother. Social history:she lives in [place], [place].she is not currently working. Smokin/2 ppd. [...] to traumatic brain injury clinic. 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 Patient education: I [...] and Rehabilitation [facility] Pain Management This document serves as a record of services personally performed by Tony Pittman MD. It was created on his behalf by Gillian Harding, a trained medical director of hospice. The creation of this record is based on the scribe's personal observations and the provider's statements to her. The document has been checked and approved by the attending provider. IRATORY PHYSICIAN documented in this encounter Plan of Treatment Scheduled Referrals Name Type Priority Associated Diagnoses Order S [facility] Referral Routine Traumatic brain injury, with out loss Ordered: 12/26/2018 of consciousness, initial en counter (HRC) documented as of this encounter Visit Diagnoses Diagnosis Bilateral occipital neuralgia - Primary Myalgia Mylagia and myositis, unspecified H/O cervical spinal arthrodesis Arthrodesis status Traumatic brain injury, without loss of consciousness, initial encounter (HRC) documented in this encounter Care Teams Boiling Tub Operator Relationship Specialty Start Date End Date Jose Holden MD PCP - General Otolaryngology 12/14/[address] [place] [address] documented as of this encounter
--- OUTSIDE RECORDS SUMMARY | 2022-08-08 22:53 | XMS_ITS | Encounter Summary ---
:1965 Author Organization [facility] Address [address], [place] [address] Care Team Providers Name Role Phone Jose Holden MD Primary Care Provider [phone] Reason for Visit Reason Comments APPOINTMENT REQUEST Encounter Details Date Type Department Care Team Description 11/13/2018 Telephone [facility] Pete Gonzalez MD APPOINTMENT REQUEST [facility] [address] [place], [place] [address]E Neurosurgery/Ortho [place], [place] [address] [address] [place] [address] [phone] Social History Tobacco Use Types Packs/Day Years [...] Jana Marcos - 11/16/2018 3:46 PM CST Terminal Press Operator spoke to the pt and helped schedule an appt with Dr. Gonzalez on 12/26/17 at 1:40PM. Pt was in agreement of date, time and location. Jana Marcos 11/16/2018, 3:46 PM AND ALCOHOL COUNSELOR Chava Simon RN - 11/16/2018 1:15 PM CST Per Sirisha Rolandson Gunnar, UTILITY WORKER [place]: patient can follow up with Dr. Gonzalez with repeat upright cervical XRs. Rachid: please call patient and assist in scheduling her for an appointment with Dr. Gonzalez at next available with XR Chava Simon RN 11/16/2018, 1:20 PM AND ALCOHOL COUNSELOR Chava Simon RN - 11/16/2018 11:15 AM [...] Walker RN - 11/15/2018 11:21 AM CST [facility]- still have not received CD from [place]. If patient calls back, please let her [...] plan? Chava Simon RN 11/13/2018, 9:12 AM AND ALCOHOL COUNSELOR Michael Cruz - 11/13/2018 8:23 AM CST Patient called in requesting for an appointment with Dr. Gonzalez himself only and not APPs. She states she fell on ice last week 11/09/18 and went to [facility] to be evaluated. She reports the [...] Gonzalez to ensure everything is well as [place] is not theones who did surgery on her and cannot compare this to before and after surgery. Terminal Press Operator called [facility] and spoke with Mandy in the film room. They are not able to push imaging but they can send a CD. Address was provided for her of mail stop [id number] [address] [facility] Attn: Dr. Gonzalez. She states the report will also be included in the CD. She then transferred me to Medical Records. Terminal Press Operator spoke with Shauna who states patient will need to sign an CODI to obtain ED note from 11/09/18 to be sent to us as they are not affiliated with [employer] system. Terminal Press Operator reached patient and relayed she would need [...] being sent. Michael Cruz 11/13/2018, 8:43 AM AND ALCOHOL COUNSELOR documented in this encounter Plan of Treatment Not on filedocumented as of this encounter Visit Diagnoses Diagnosis S/P cervical spinal fusion - Primary Arthrodesis status documented in this encounter Care Teams Facility Sales And Admin Relationship Specialty Start Date End Date Jose Holden MD PCP - General Otolaryngology 12/14/17 [place] [address] documented as of this encounter
--- OUTSIDE RECORDS SUMMARY | 2022-08-08 22:53 | XMS_ITS | Encounter Summary ---
:1965 Author Organization [facility] Address [address] [place] [address] Care Team Providers Name Role Phone Jose Holden MD Primary Care Provider [phone] Reason for Referral Therapies (Routine) - Closed Specialty Diagnoses / Procedures Referred By Contact Refer red To Contact Diagnoses S/P cervical spinal fusion Pete Gonzalez MD [facility] [address] [place] [address] Referral ID Status Reason Start Date Expiration Date Visits Requ ested Visits Authorized [id number] Closed 12/26/2018 02/24/2019 1 1 Scheduling Instructions Your provider has recommended an appoint ment with a [facility] Physical Therapist. Please stop at the clinic check out desk for assistance with scheduling or if you prefer to call for your appointment you may call [facility] Outpatient Rehabilitation at [phone]. We suggest you call your [facility] insurance company about your coverage and benefits for this appointment. ING ENGINEER Reason for Visit Reason Comments Revisit Encounter Details Date Type Department Care Team Description 12/26/2018 Office Visit [facility] Pete Gonzalez, S/P miguelito al spinal [facility] fusion (Primary Dx) [facility] [address] [place] [address] [place] [address] [phone] Social History Tobacco Use Types Packs/Day Years [...] Comments Blood Pressure 115/72 12/26/2018 1:48 PM IMAGING ENGINEER Pulse 70 12/26/2018 1:48 PM IMAGING ENGINEER Temperature 36.5 ??C (97.7 ??F) 12/26/2018 1:48 PM IMAGING ENGINEER Respiratory Rate - - Oxygen Saturation - - Inhaled Oxygen Concentration - - Weight 71.2 kg (157 lb) 12/26/2018 1:48 PM IMAGING ENGINEER Height 152.4 cm (5') 12/26/2018 1:48 PM IMAGING ENGINEER Body Mass Index 30.66 12/26/2018 1:48 PM IMAGING ENGINEER documented in this encounter Patient Instructions Patient [...] your understanding. Please call the Neurosurgery Center [phone] with any further questions or concerns or if your symptoms worsen. Thank you for coming to see us today. We are your partner. ING ENGINEER documented in this encounter Progress Notes Pete [...] at her current physical therapy Center at [facility] and also continued pain management [...] is prone to typos and grammatical errors. ING ENGINEER documented in this encounter Plan of Treatment Scheduled Referrals Name Type Priority Associated Diagnoses Order S [facility] Physical Therapy Referral Routine S/P cervical spinal fusi on Ordered: 12/26/2018 documented as of this encounter Visit Diagnoses Diagnosis S/P cervical spinal fusion - Primary Arthrodesis status documented in this encounter Care Teams Film Or Videotape Editor Relationship Specialty Start Date End Date Jose Holden MD PCP - General Otolaryngology 12/14/17 [place] [address] documented as of this encounter
--- OUTSIDE RECORDS SUMMARY | 2022-08-08 22:53 | XMS_ITS | Encounter Summary ---
:1965 Author Organization [facility] Address [address] [address] Care Team Providers Name Role Phone Jose Holden MD Primary Care Provider [phone] Reason for Visit Reason Comments Forms Encounter Details Date Type Department Care Team Description 07/11/2018 Telephone [facility] Pete Gonzalez MD Forms Center [facility]tho [address] [facility] [place] [place] [address] [address] [place] [address] [phone] Social History Tobacco Use Types Packs/Day Years [...] on filedocumented in this encounter Care Teams Livestock Laborer Relationship Specialty Start Date End Date Jose Holden MD PCP - General Otolaryngology 12/14/17 [place] [address] documented as of this encounter
--- OUTSIDE RECORDS SUMMARY | 2022-08-08 22:53 | XMS_ITS | Encounter Summary ---
:1965 Author Organization [facility] Address [address] [place] [address] Care Team Providers Name Role Phone Jose Holden MD Primary Care Provider [phone] Encounter Details Date Type Department Care Team Description 02/06/2019 Consent for [facility] Procedure/Treatm [facility] Tony Alvarado MD FOR TX/PROCEDURE ent Pain Management [address] [place] [phone] Social History Tobacco Use Types Packs/Day Years [...] on filedocumented in this encounter Care Teams Dish Carrier Relationship Specialty Start Date End Date Jose Holden MD PCP - General Otolaryngology 12/14/[address] [place], [place] [address] documented as of this encounter
--- OUTSIDE RECORDS SUMMARY | 2022-08-08 22:53 | XMS_ITS | Encounter Summary ---
:1965 Author Organization [facility] Address [address] [place] [address] Care Team Providers Name Role Phone Jose Holden MD Primary Care Provider [phone] Encounter Details Date Type Department Care Team Description 12/26/2018 Consent for [facility], CONSENT FOR Procedure/[facility] Neuroscience Center Tony Alvarado MD PROCEDURE ent Pain Management [address] [place] [phone] Social History Tobacco Use Types Packs/Day Years [...] on filedocumented in this encounter Care Teams Job Lithographer Relationship Specialty Start Date End Date Jose Holden MD PCP - General Otolaryngology 12/14/[address] [place] [address] documented as of this encounter
--- OUTSIDE RECORDS SUMMARY | 2022-08-08 22:53 | XMS_ITS | Encounter Summary ---
:1965 Author Organization [facility] Address [address] [place] [address] Care Team Providers Name Role Phone Jose Holden MD Primary Care Provider [phone] Reason for Visit Reason Comments UPDATE Pain Encounter Details Date Type Department Care Team Description 06/22/2018 [facility] Gume Pittman R, UPDATE; [facility] [address] [place] [address] [place] [address] [phone] (Wo rk) Social History Tobacco Use Types [...] Arenas RN - 06/26/2018 10:02 AM CDT Phlebotomy Tech called patient, notified info below. Phlebotomy Tech offered patient appt today however she cannot [...] returned post TPI's from 3 days ago. 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 Patient education: I went over the above diagnoses and treatment plan with her and answered all of her questions. 2. Imaging review: None 3. Exercise program: Regular exercise and activity 4. Medications: No changes. Do not recommend chcf opioid use, continue to decrease use until [...] MD Pain Medicine Physical Medicine and Rehabilitation [facility]. Obi Echeverria - 06/22/2018 4:29 [...] on filedocumented in this encounter Care Teams Vocational Rehabilitation Specialist Relationship Specialty Start Date End Date Jose Holden MD PCP - General Otolaryngology 12/14/17 [place] [address] documented as of this encounter
--- OUTSIDE RECORDS SUMMARY | 2022-08-08 22:53 | XMS_ITS | Encounter Summary ---
:1965 Author Organization [facility] Address [address], [place] [address] Care Team Providers Name Role Phone Jose Holden MD Primary Care Provider Reason for Visit Procedure/Equipment (Routine) - Incomplete Specialty Diagnoses / Procedures Referred By Contact Refer red To Contact Diagnoses S/P cervical spinal fusion Sirisha Rankin, Procedures XR Cervical Spine AP/Lat Upright FABRIC WORKER FOREMAN, MILL CONTROL OPERATOR [address] [place] [address] Referral ID Status Reason Start Date Expiration Date Visits V isits Requested Authorized [id number] Incomplete 10/10/2018 01/09/2020 1 1 Encounter Details Date Type Department Care Team Description 12/26/2018 Ancillary [facility] Sneha Maher, S/P cervi france Procedure [facility] Sirisha Celaya, FABRIC WORKER FOREMAN, spinal fusion Radiology MILL CONTROL OPERATOR [address] [place] [address] [place], [place] [phone] [facility] Social History Tobacco Use Types Packs/Day [...] spin al Results for this AP/LAT UPRIGHT TIRE RECAPPING MACHINE OPERATOR fusion procedure are in the results section. documented in this encounter Results XR Cervical Spine AP/Lat Upright (12/26/2018 1:44 PM TIRE RECAPPING MACHINE OPERATOR) Anatomical Region Laterality Modality Spine, C-Spine, Neck Computed Radiograph y Specimen (Source) Anatomical Collection Method Collection Time Re ceived Time Location / / Volume Laterality 12/26/2018 1:44 PM TIRE RECAPPING MACHINE OPERATOR Narrative 12/26/2018 3:41 PM TIRE RECAPPING MACHINE OPERATOR EXAM: XR CERVICAL SPINE AP/LAT UPRIGHT LOCATION: [facility] DATE/TIME: 12/26/2018 1:44 PM [...] EXAM: XR CERVICAL SPINE AP/LAT UPRIGHT LOCATION: [facility] DATE/TIME: 12/26/2018 1:44 PM [...] C1-2 level on lateral view. Sirisha Maher FABRIC WORKER FOREMAN, MILL CONTROL OPERATOR RAD GD documented in this encounter Visit Diagnoses Diagnosis S/P cervical spinal fusion Arthrodesis status documented in this encounter Care Teams Technical Support Associate Relationship Specialty Start Date End Date Jose Holden MD PCP - General Otolaryngology 12/14/17 [place] [address] documented as of this encounter
--- OUTSIDE RECORDS SUMMARY | 2022-08-08 22:53 | XMS_ITS | Encounter Summary ---
:1965 Author Organization [facility] Address [address] [address] Care Team Providers Name Role Phone Jose Holden MD Primary Care Provider [phone] Reason for Visit Reason Comments Revisit Bilateral cervical/thoracic trigger point injections Encounter Details Date Type Department Care Team Description 08/14/2018 Office Visit [facility] occipital neuralgia (Primary Dx); [facility] Pain RMD Myalgia; Management [address] H/O cervical spinal arthrodesis [address] [place] [phone] Social History Tobacco Use Types Packs/Day Years [...] Pittman MD - 08/14/2018 3:00 PM CDT [facility] Follow-up Visit 08/14/2018 Interim history: [...] Oxycodone 5 mg Q6H - Prescribes by [facility], has been taking [...] at a pain clinic in the past. [facility] physical therapy: Past [...] ??? medical cannabis patient certified Take 1 [place] by mouth . ??? naloxone (NARCAN) 4 [...] Gain No facility-administered medications prior to visit. [place] Pres[place] reviewed Allergies: [...] in her mother. Social history:she lives in [place], [place].she is not currently working. Smokin/2 ppd. [...] MD Pain Medicine [facility] This document serves as a record of services personally performed by Tony Pittman MD. It was created on his behalf by Gillian Harding, a trained nuclear medical technologist. The creation of this record is based [...] status documented in this encounter Care Teams Mason Tender Restoration Labor Relationship Specialty Start Date End Date Jose Holden MD PCP - General Otolaryngology 12/14/17 [facility] [place] [address] documented as of this encounter
--- OUTSIDE RECORDS SUMMARY | 2022-08-08 22:53 | XMS_ITS | Encounter Summary ---
:1965 Author Organization [facility] Address [address] [place] [address] Care Team Providers Name Role Phone Jose Holden MD Primary Care Provider [phone] Reason for Visit Reason Comments UPDATE Encounter Details Date Type Department Care Team Description 07/07/2018 Telephone [employer] Neuroscience Gume Pittman, [facility] [address] [place] [address] [place] [address] [phone] (Wo rk) Social History Tobacco Use Types [...] Arenas RN - 07/07/2018 12:44 PM CDT Gas Appliance Repairer called patient, she states she has left neck/shoulder pain that did not improve after TPI's last week. Pt shares her right side of neck/shoulder is getting tight again and she is having headaches. Pt wants to proceed with occipital nerve blocks for her headache. Gas Appliance Repairer offered patient appointment 07/10 which she accepted. [...] blocks instead in the future ??Barriers: 1. FPC opioid use ??Plan: 1. Patient education: I [...] on filedocumented in this encounter Care Teams Java User Interface Developer Relationship Specialty Start Date End Date Jose Holden MD PCP - General Otolaryngology 12/14/17 [place] [address] documented as of this encounter
--- OUTSIDE RECORDS SUMMARY | 2022-08-08 22:53 | XMS_ITS | Encounter Summary ---
:1965 [facility] Address [address] [place] [address] Care Team Providers Name Role Phone Jose Holden MD Primary Care Provider [phone] Encounter Details Date Type Department Care Team [...] on filedocumented in this encounter Care Teams Mail Technician Relationship Specialty Start Date End Date Jose Holden MD PCP - General Otolaryngology 12/14/17 [place] [address] documented as of this encounter
--- OUTSIDE RECORDS SUMMARY | 2022-08-08 22:53 | XMS_ITS | Encounter Summary ---
:1965 [facility] Address [address] [place] [address] Care Team Providers Name Role Phone Jose Holden MD Primary Care Provider [phone] Reason for Visit Reason Comments Medication Request Encounter Details Date Type Department Care Team Description 12/08/2019 Telephone Careline Unknown, Physician Medication Request [address] [place], [place] [address] [place], [place] [phone] (Wo rk) Social History Tobacco Use Types [...] pain medication. Pt advised to surgeon at [facility]. DER SET UP OPERATOR THREAD documented in this encounter Plan of Treatment Not on filedocumented as of this encounter Visit Diagnoses Not on filedocumented in this encounter Care Teams Cook Room Supervisor Relationship Specialty Start Date End Date Jose Holden MD PCP - General Otolaryngology 12/14/17 [address] [place] [address] documented as of this encounter
--- OUTSIDE RECORDS SUMMARY | 2022-08-08 22:53 | XMS_ITS | Encounter Summary ---
:1965 [facility] Address [address] [address] Care Team Providers Name Role Phone Jose Holden MD Primary Care Provider [phone] Encounter Details Date Type Department Care Team Description 11/10/2018 Emergency Room External to External, Provid er FALL/HEADACHE NECK LT No address [place] [address] Social History Tobacco Use Types Packs/Day Years [...] on filedocumented in this encounter Care Teams Sandblast Carver Relationship Specialty Start Date End Date Jose Holden MD PCP - General Otolaryngology 12/14/17 [place] [address] documented as of this encounter
--- OUTSIDE RECORDS SUMMARY | 2022-08-08 22:53 | XMS_ITS | Encounter Summary ---
:1965 [facility] Address [address], [place] [address] Care Team Providers Name Role Phone Jose Holden MD Primary Care Provider [phone] Reason for Visit Reason Comments Revisit trigger point injections/occ ipital nerve blocks Encounter Details Date Type Department Care Team Description 03/06/2019 Office Visit [facility] Pittman, Bilateral occ ipital neuralgia (Primary Dx); [facility] Carole Bowden Myalgia; Pain Management [address] Cervical vertebral fusion; [address] [place], [place] Spondylosis of cervical princess on without [place] [phone] Social History Tobacco Use Types Packs/Day Years [...] treatment plan is, please contact me via Myxer online messaging or call the office at and ask to speak to a nurse. Tony Pittman MD Pain Medicine documented in this encounter Progress Notes Tony Pittman MD - 03/06/2019 2:45 PM CDT [facility] Follow-up Visit 03/06/2019 Interim history: [...] Oxycodone 5 mg Q6H - Prescribes by [facility], has been taking for many [...] at a pain clinic in the past. [facility] physical therapy: Past Acupuncture: None [...] ??? medical cannabis patient certified Take 1 [place] by mouth . ??? naloxone (NARCAN) 4 [...] Gain No facility-administered medications prior to visit. [place] and [place] Prescription Monitoring Program reviewed Allergies: [...] in her mother. Social history:she lives in [place], [place].she is not currently working. Smokin/2 ppd. [...] limited. Significant posterior surgical deformity of neck. Post Anesthesia Room Nurse to palpation bilateral levator scapulae, splenius, trapezius [...] These are unchanged from previous. Barriers: 1. assisted opioid use Plan: 1. [...] Physical Medicine and Rehabilitation [facility] This note created using speech-recognition [...] myelopathy documented in this encounter Care Teams Dramatic Coach Relationship Specialty Start Date End Date Jose Holden MD PCP - General Otolaryngology 12/14/[address] [place] [address] documented as of this encounter
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
--- OUTSIDE RECORDS SUMMARY | 2022-08-08 22:53 | XMS_ITS | Encounter Summary ---
:1965 Author Organization [facility] Address [address] [address] Care Team Providers Name Role Phone Jose Holden MD Primary Care Provider [phone] Encounter Details Date Type Department Care Team Description 11/10/2018 Orders Only External to Pete Tamayo MD [address] [place], [place] [address] (Wo rk) Social History Tobacco Use Types [...] 11/10/2018 12:00 AM R esults for this AIRCRAFT FUSELAGE FRAMER procedure are i n the results section. documented in this encounter Results CT SCAN SPINE--SCAN (11/10/2018 12:00 AM AIRCRAFT FUSELAGE FRAMER) Anatomical Region Laterality Modality Other Specimen (Source) Anatomical Location Collection Method / Collectio n Time Received Time / Laterality Volume 11/10/2018 Narrative This result has an attachment that is no t available. Pete Gonzalez MD DUMMY/OTHER/AR documented in this encounter Visit Diagnoses Not on filedocumented in this encounter Care Teams Card Clothier Relationship Specialty Start Date End Date Jose Holden MD PCP - General Otolaryngology 12/14/17 [address] [place] [address] documented as of this encounter
--- OUTSIDE RECORDS SUMMARY | 2022-08-08 22:53 | XMS_ITS | Encounter Summary ---
:1965 [facility] Address [address] [place] [address] Care Team Providers Name Role Phone Jose Holden MD Primary Care Provider [phone] Reason for Visit Procedure/Equipment (Routine) - Incomplete Specialty Diagnoses / Procedures Referred By Contact Refer red To Contact Diagnoses S/P cervical spinal fusion Sirisha Rankin, Procedures XR Cervical Spine AP/Lat Upright DISTRIBUTION ANALYST, TABLE KEEPER [address] [place] [address] Referral ID Status Reason Start Date Expiration Date Visits V isits Requested Authorized [id number] Incomplete 04/05/2018 07/05/2019 1 1 Encounter Details Date Type Department Care Team Description 06/14/2018 Imaging [facility] Sneha Maher, S/P cervi [facility] spinal [facility] Sirisha Celaya, APR N, TABLE KEEPER fusion Radiology [address] [place] [address] [place] [address] [phone] Social History Tobacco Use Types Packs/Day Years [...] PM CDT Narrative 06/14/2018 5:54 PM CDT [facility] XR CERVICAL SPINE AP/LAT UPRIGHT [...] note might be different from the original. [facility] XR CERVICAL SPINE AP/LAT UPRIGHT [...] soft tissue swelling. Remainder unchanged. Sirisha Maher DISTRIBUTION ANALYST, TABLE KEEPER RAD GD documented in this encounter Visit Diagnoses Diagnosis S/P cervical spinal fusion Arthrodesis status documented in this encounter Care Teams Key Operator Relationship Specialty Start Date End Date Jose Holden MD PCP - General Otolaryngology 12/14/17 [place] [address] documented as of this encounter
--- OUTSIDE RECORDS SUMMARY | 2022-08-08 22:53 | XMS_ITS | Encounter Summary ---
:1965 Author Organization [facility] Address [address] [place] [address] Care Team Providers Name Role Phone Jose Holden MD Primary Care Provider [phone] Reason for Visit Reason Comments Revisit Bilateral cervical/thoracic trigger point injections Encounter Details Date Type Department Care Team Description 06/20/2018 Office Visit [facility] Myalgia (Primary Dx); [facility] Pain [facility]MD H/O cervical spinal arthrodesis; Management [address] Cervical vertebral fusion; [address] [place], [place] Fibromyalgia; [place] [address] Tobacco use disorder; [phone] Status post tot al left knee replacement [...] medications, in ALL states. As laws can belt changer time, one should review the state government [...] treatment plan is, please contact me via TellFi online messaging or call the office at [...] mg Q6H - Prescribes by [facility], has been taking for [...] pain clinic in the past. [facility] physical therapy: Past Acupuncture: [...] anterior cervical fusion 2016 Dr. Ihsan Brooke, [facility] past surgical history reviewed with patient. [...] Gain No facility-administered medications prior to visit. [place] and [place] Prescription Monitoring Program reviewed Allergies: Allergies Allergen [...] in her mother. Social history:she lives in [place], [place].she is not currently working. Smokin/2 ppd. 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 Patient education: I went over the above diagnoses and treatment plan with her and answered all of her questions. 2. Imaging review: None 3. Exercise program: Regular exercise and activity 4. Medications: No changes. Do not recommend long wall shear operator opioid use, continue to decrease use until [...] Pain Medicine Physical Medicine and Rehabilitation [facility] This document serves as a record of services personally performed by Tony Pittman MD. It was created on his behalf by Gillian Harding, a trained medical imaging technologist. The creation of this record is [...] replacement documented in this encounter Care Teams Lighter Captain Relationship Specialty Start Date End Date Jose Holden MD PCP - General Otolaryngology 12/14/17 [facility] [place] [address] documented as of this encounter
--- OUTSIDE RECORDS SUMMARY | 2022-08-08 22:53 | XMS_ITS | Encounter Summary ---
:1965 [facility] Address [address] [place] [address] Care Team Providers Name Role Phone Jose Holden MD Primary Care Provider [phone] Reason for Referral Procedure/Equipment (Routine) - Closed Specialty Diagnoses / Procedures Referred By Contact Refer red To Contact Diagnoses Dizziness Concussion with loss of consciousness of 30 minutes or less, subsequent encounter Alyse Carias, PT [address] [place] [address] Referral ID Status Reason Start Date Expiration Date Visits Requ ested Visits Authorized [id number] Closed 03/06/2019 06/04/2020 20 20 Scheduling Instructions . Reason for Visit Reason Comments Concussion Therapies (Routine) - Closed Specialty Diagnoses / Procedures Referred By Contact Refer red To Contact Diagnoses Impairment of balance Dizziness Blanka Mead, DRUM SEALER, CN P [address] [place] [address] Referral ID Status Reason Start Date Expiration Date Visits Requ ested Visits Authorized [id number] Closed 02/16/2019 04/17/2019 1 1 Encounter Details Date Type Department Care Team Description 03/06/2019 Office Visit Alyse Bee Dizziness (Primary Dx); [facility] A, PT Concussion with loss of consciousness of 30 minutes or less, subsequent encounter Physical Therapy [address] [place] [phone] Social History Tobacco Use Types Packs/Day Years [...] impacting her status (scheduled for surgery at [place] on 02/28/19). Tinnitus- scheduled for hearing assessment [...] ER right away. She was seen at [facility]. ?? She has a past medical [...] limited function due to PMH Lives in [place]. Independent with ADLs, driving. Current Level of Function: Currently not-employed. Lives alone in apartment. Difficulty bending down She does endorse LOS in home setting. Previous Therapy for This Condition: PT for neck (01/23/19- refaxed orders) Patient Goals: Return to previous level of function and Increased function OBJECTIVE Posture/Observations: alert, oriented, cooperative. forward head posturing. Carrying multiple bags and able to roller picker from floor to chair without LOS. Functional [...] within her allowable cervical ROM). Access Code: [email or web address] URL: [email or web address] Date: 03/06/2019 Prepared by: Alyse Carias Exercises Standing Gaze Stabilization with Head Rotation - 1-3 reps - 30-40 seconds - 3x daily - 7x weekly Education regarding Rule of 2 -Discussed option of closer location to her home yet noted she would be able to attend at [facility]. Patient's Response to Therapy: Good Home Program [...] encounter documented in this encounter Care Teams Balancer Scale Relationship Specialty Start Date End Date Jose Holden MD PCP - General Otolaryngology 12/14/17 [facility] [place] [address] documented as of this encounter
--- OUTSIDE RECORDS SUMMARY | 2022-08-08 22:54 | XMS_ITS | Encounter Summary ---
:1965 Author [facility] Address [address], [place] [address] Care Team Providers Name Role Phone Jose Holden MD Primary Care Provider [phone] Encounter Details Date Type Department Care Team [...] on filedocumented in this encounter Care Teams Garden Labourer Relationship Specialty Start Date End Date Jose Holden MD PCP - General Otolaryngology 12/14/17 [place] [address] documented as of this encounter
--- OUTSIDE RECORDS SUMMARY | 2022-08-08 22:54 | XMS_ITS | Encounter Summary ---
:1965 Author Organization [facility] Address [address], [place] [address] Care Team Providers Name Role Phone Jose Holden MD Primary Care Provider [phone] Reason for Visit Reason Comments POST-OP,EXAM Encounter Details Date Type Department Care Team Description 03/07/2018 Office Visit [facility] Denis P ostop check (Primary Center Neurosurgery/Ortho Dx ) Spine [address] [place], [place] [phone] Social History Tobacco Use Types Packs/Day Years [...] understanding. Please call the Neurosurgery/Spine Clinic at [phone] with any further questions or concerns. documented [...] surgery documented in this encounter Care Teams Waterworks Employee Relationship Specialty Start Date End Date Jose Holden MD PCP - General Otolaryngology 12/14/17 [facility] [place] [address] documented as of this encounter
--- OUTSIDE RECORDS SUMMARY | 2022-08-08 22:54 | XMS_ITS | Encounter Summary ---
:1965 Author Organization [facility] Address [address], [place] [address] Care Team Providers Name Role Phone Jose Holden MD Primary Care Provider [phone] Reason for Visit Reason Onset Date Comments Refill 03/01/2018 Encounter Details Date Type Department Care Team Description 03/01/2018 Refill [facility] Neuroscience [place] Chava Simon RN Refill Neurosurgery/Ortho [address] [place] [address] Social History Tobacco Use Types [...] as per standard weaning. Sirisha Jefferson APRN, WIRELESS STORE MANAGER 03/01/2018, 11:49 AM Chava Simon RN - [...] pt. have a f/u appointment: 04/05/2018 Pharmacy: [facility] Chava Simon RN 03/01/2018, 11:40 AM documented in this encounter Plan of Treatment Not on filedocumented as of this encounter Visit Diagnoses Not on filedocumented in this encounter Care Teams Reproductive Endocrinologist Relationship Specialty Start Date End Date Jose Holden MD PCP - General Otolaryngology 12/14/[address] [place], [place] [address] [address] documented as of this encounter
--- OUTSIDE RECORDS SUMMARY | 2022-08-08 22:54 | XMS_ITS | Encounter Summary ---
:1965 [facility] Address [address], [place] [address] Care Team Providers Name Role Phone Jose Holden MD Primary Care Provider [phone] Reason for Visit Auth/Cert Specialty Diagnoses / [...] Expiration Date Visits Requ ested Visits Authorized [id number] 1 1 Encounter Details Date Type Department Care Team Description 02/20/2018 [facility] Pete Gonzalez MD [address] [place] [address] [place] [address] [phone] (Wo rk) Social History Tobacco Use Types [...] 12:36 PM CDT Fluoroscopy provided by a interventional radiology technologist. Exact fluoroscopy time is documented in end of exam information in EPIC Pete Gonzalez MD RAD GD documented in this encounter Visit Diagnoses Not on filedocumented in this encounter Care Teams Skin Washer Relationship Specialty Start Date End Date Jose Holden MD PCP - General Otolaryngology 12/14/[address] [place] [address] documented as of this encounter
--- OUTSIDE RECORDS SUMMARY | 2022-08-08 22:54 | XMS_ITS | Encounter Summary ---
:1965 Author Organization [facility] Address [address], [place] [address] Care Team Providers Name Role Phone Jose Holden MD Primary Care Provider [phone] Reason for Referral Procedure/Equipment (Routine) - Incomplete Specialty Diagnoses / Procedures Referred By Contact Refer red To Contact Diagnoses S/P cervical spinal fusion Sirisha Rankin, Procedures XR Cervical Spine AP/Lat Upright KALPANA SHER [address] [place] [address] Referral ID Status Reason Start Date Expiration Date Visits V isits Requested Authorized [id number] Incomplete 04/05/2018 07/05/2019 1 1 Reason for Visit Reason Comments POST-OP,EXAM Encounter Details Date Type Department Care Team Description 04/05/2018 Office Visit [facility] Sneha Maher, S/Camelia cervic al spinal [facility] RODRICK Newberry CNP fusion (Primary Dx) Neurosurgery/Ortho [address] Spine [place], [place] [address] [address] [place] [address] [phone] Social History Tobacco Use Types Packs/Day Years [...] your understanding. Please call the Neurosurgery Center [phone] with any further questions or concerns or if your symptoms worsen. Thank you for coming to see us today. We are your partner. documented in this encounter Progress Notes Sirisha Rankin, RESIDENT ADVISOR, REEL REPAIRER - 04/05/2018 1:00 PM CDT POSTOPERATIVE DIAGNOSES: [...] a divorce and plans to move to [place] in the next several months. She would like to have an appointment with Dr. Gonzalez prior to her move out of [facility]. She denies any incisional concerns. She has [...] elbow(tricep) R:5/5 L: 5/5 C8 - Finger flexors(thermo cementing folder operator) R:5/5 L: 5/5 T1 - Finger [...] PM CDT Narrative 06/14/2018 5:54 PM CDT [facility] XR CERVICAL SPINE AP/LAT UPRIGHT 06/14/2018 [...] soft tissue swelling. Remainder unchanged. Sirisha Maher RESIDENT ADVISOR, REEL REPAIRER RAD GD documented in this encounter Visit Diagnoses Diagnosis S/P cervical spinal fusion - Primary Arthrodesis status S/P cervical spinal fusion Arthrodesis status documented in this encounter Care Teams Personal Security Specialist Relationship Specialty Start Date End Date Jose Holden MD PCP - General Otolaryngology 12/14/17 [place] [address] documented as of this encounter
--- OUTSIDE RECORDS SUMMARY | 2022-08-08 22:54 | XMS_ITS | Encounter Summary ---
:1965 Author Organization [facility] Address [address], [place] [address] Care Team Providers Name Role Phone Jose Holden MD Primary Care Provider [phone] Reason for Visit Auth/Cert Specialty Diagnoses / [...] Expiration Date Visits Requ ested Visits Authorized [id number] 1 1 Encounter Details Date Type Department Care Team Description 02/20/2018 [facility] Pete Gonzalez MD [address] [place] [address] [place] [address] [phone] (Wo rk) Social History Tobacco Use Types [...] filedocumented in this encounter Care Teams Sales Recruiter Relationship Specialty Start Date End Date Jose Holden MD PCP - General Otolaryngology 12/14/[address] [place] [address] [phone] (work) documented as of this encounter
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
--- OUTSIDE RECORDS SUMMARY | 2022-08-08 22:54 | XMS_ITS | Encounter Summary ---
:1965 Author Organization [facility] Address [address] [place] [address] Care Team Providers Name Role Phone Jose Holden MD Primary Care Provider [phone] Reason for Visit Reason Comments Medication Questions FYI Encounter Details Date Type Department Care Team Description 03/01/2018 Telephone [facility] Pete Gonzalez MD Medication Questions; [facility] [address] [place] [address] FY I Neurosurgery/Ortho [address] [place] [address] [place] [address] [place] [address] [phone] (Wo rk) Social History Tobacco Use Types [...] on filedocumented in this encounter Care Teams Retail Security Professional Relationship Specialty Start Date End Date Jose Holden MD PCP - General Otolaryngology 12/14/17 [facility] [place] [address] documented as of this encounter
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
--- OUTSIDE RECORDS SUMMARY | 2022-08-08 22:54 | XMS_ITS | Encounter Summary ---
:1965 Author Organization [facility] Address [address] [address] Care Team Providers Name Role Phone Jose Holden MD Primary Care Provider [phone] Reason for Visit Auth/Cert Specialty Diagnoses / [...] Expiration Date Visits Requ ested Visits Authorized [id number] 1 1 Encounter Details Date Type Department Care Team Description 02/20/2018 [facility] Pete Gonzalez MD [address] [place] [address] [place] [address] [phone] (Wo rk) Social History Tobacco Use Types [...] PM CDT Fluoroscopy provided by a radiology resident. Exact fluoroscopy time is documented in end of exam information in EPIC Pete Gonzalez MD RAD GD documented in this encounter Visit Diagnoses Not on filedocumented in this encounter Care Teams Steerer Relationship Specialty Start Date End Date Jose Holden MD PCP - General Otolaryngology 12/14/17 [facility] [place] [address] documented as of this encounter
--- OUTSIDE RECORDS SUMMARY | 2022-08-08 22:54 | XMS_ITS | Encounter Summary ---
:1965 Author Organization [facility] Address [address], [place] [address] Care Team Providers Name Role Phone Jose Holden MD Primary Care Provider [phone] Reason for Visit Reason Comments QUESTIONS, GENERAL Encounter Details Date Type Department Care Team Description 02/24/2018 Telephone [facility] Pete Gonzalez MD QUESTIONS, GENERAL [facility] [address] [facility] Neurosurgery/Ortho [place], [place] [address] [address] [place] [address] [phone] Social History Tobacco Use Types Packs/Day Years [...] currently doing PT which was ordered through [facility] for her shoulder. She is worried [...] on filedocumented in this encounter Care Teams District Associate Judge Relationship Specialty Start Date End Date Jose Holden MD PCP - General Otolaryngology 12/14/[address] [facility] [place] [address] documented as of this encounter
--- OUTSIDE RECORDS SUMMARY | 2022-08-08 22:54 | XMS_ITS | Encounter Summary ---
:1965 Author Organization [facility] Address [address], [place] [address] Care Team Providers Name Role Phone Jose Holden MD Primary Care Provider [phone] Reason for Visit Reason Comments Medication Check In Encounter Details Date Type Department Care Team Description 03/07/2018 Telephone [facility] Pete Gonzalez MD Medication Check In [facility] [facility] Neuro[facility]Ortho [place], [place] [address] [address] [place] [address] [phone] Social History Tobacco Use Types Packs/Day Years [...] 12:25 PM CDT Pharmacist Mandy calling from [facility]. She would like to inform provider [...] on filedocumented in this encounter Care Teams Form Setter Relationship Specialty Start Date End Date Jose Holden MD PCP - General Otolaryngology 12/14/17 [place] [address] documented as of this encounter
--- OUTSIDE RECORDS SUMMARY | 2022-08-08 22:54 | XMS_ITS | Encounter Summary ---
:1965 Author Organization [facility] Address [address], [place] [address] Care Team Providers Name Role Phone Jose Holden MD Primary Care Provider [phone] Reason for Visit Reason Comments QUESTIONS, GENERAL Encounter Details Date Type Department Care Team Description 03/01/2018 Telephone [facility] Pete Gonzalez MD QUESTIONS, GENERAL [facility] [address] [facility] Neurosurgery/Ortho [place], [place] [address] [address] [place] [address] [phone] Social History Tobacco Use Types Packs/Day Years [...] she should go to the ED in [place]? Please review and advise. Chantel Angela 03/01/2018, 11:15 AM documented in this encounter Plan of Treatment Not on filedocumented as of this encounter Visit Diagnoses Not on filedocumented in this encounter Care Teams Raw Scales Operator Relationship Specialty Start Date End Date Jose Holden MD PCP - General Otolaryngology 12/14/[address] [facility] [place] [address] documented as of this encounter
--- OUTSIDE RECORDS SUMMARY | 2022-08-08 22:54 | XMS_ITS | Encounter Summary ---
:1965 Author Organization [facility] Address [address], [place] [address] Care Team Providers Name Role Phone Jose Holden MD Primary Care Provider [phone] Reason for Visit Procedure/Equipment (Routine) - Incomplete Specialty Diagnoses / Procedures Referred By Contact Refer red To Contact Diagnoses Cervical spondylosis with radiculopathy (HRC) Sneha Maher, Sirisha Celaya, Procedures XR Cervical Spine AP/Lat Upright ELECTRICAL TECH/PROJECT MANAGER, TECHNICAL WRITER [address] [place] [address] Referral ID Status Reason Start Date Expiration Date Visits V isits Requested Authorized [id number] Incomplete 02/21/2018 05/23/2019 1 1 Encounter Details Date Type Department Care Team Description 04/05/2018 Imaging [facility] Sneha Maher, Cervical spondylosis [facility] Sirisha Celaya, APR N, TECHNICAL WRITER with radiculopathy Radiology [address] [place] [address] [phone] (Wo rk) Social History Tobacco Use Types [...] Anatomic alignment. Shoulder prosthesis. Sirisha Yomi Maher ELECTRICAL TECH/PROJECT MANAGER, TECHNICAL WRITER RAD GD documented in this encounter Visit Diagnoses Diagnosis Cervical spondylosis with radiculopathy (HRC) Cervical spondylosis with myelopathy documented in this encounter Care Teams Child Center Assistant Relationship Specialty Start Date End Date Jose Holden MD PCP - General Otolaryngology 12/14/[address] [place], [place] [address] [address] documented as of this encounter
--- OUTSIDE RECORDS SUMMARY | 2022-08-08 22:54 | XMS_ITS | Encounter Summary ---
:1965 Author Organization [facility] Address [address], [place] [address] Care Team Providers Name Role Phone Jose Holedn MD Primary Care Provider [phone] Reason for Visit Auth/Cert Specialty Diagnoses / [...] Expiration Date Visits Requ ested Visits Authorized [id number] 1 1 Encounter Details Date Type Department Care Team Description 02/20/2018 Surgery RH Operating Room Marky Gonazlez MD FUSION POSTERIOR [address] [place] [address] [place], [place] C2-T3, REMOVAL HARDWARE [phone] [id number] SPINE Anterior plate [phone] (Wo rk) and Posterior screws and rods [...] encounter Discharge Summaries Sneha Maher, Sirisha Celaya, MARINE CONSULTANT, ACCOUNTING MANAGER CPA - 02/23/2018 9:09 AM CDT Neurosurgery Discharge [...] Hospital Course: Angie Bender was admitted to [facility] on 02/20/2018 following posterior C2-T3 [...] 9.4 - 12.4 fl Narrative Performed at [facility], [address] [place] [address] Physical Exam: BP 124/78 Pulse 74 Temp [...] T1. 3. Intraoperative placement and removal of Taylor-BNI Video tongs. 4. Hardware removal, C6-T1 posterior. 5. [...] in strength to your extremeties. Neurosurgery clinic [phone]. If it is after hours, please call [...] neurosurgery RN on 03/07 at 11AM at [address] [place] [address], 2nd floor. 2. Follow up with Dr. Gonzalez/Lois Pham PA-C/Sirisha Maher NP on 04/05 at 1:00PM at [address] [place] [address]. Patient also instructed to call clinic at [phone] or [facility] for any questions or concerns. Patient verbalizes understanding and states no further questions at this time. 3. Follow up with PCP for any medical issues Total time spent at the time of discharge was 30 minutes Sirisha Maher APRN, [place] Pgr#[phone] documented in this encounter Discharge Instructions Discharge InstructionsDonna Ellis RN - 02/23/2018 10:42 AM CDT Hospital [place] [address] General Information Discharging physician: Dr. Gonzalez [facility] Emergency & Urgently Needed Care: For emergencies call 911 and/or get medical help right away. If you are a [facility] member and have medical needs after clinic hours you may call the [facility] [phone] or . Fall Prevention Recommendations ??? Follow [...] Ellis RN - 02/23/2018 11:50 AM CDT [facility] Discharge Note - Nursing Admission [...] End of Report --- Sirisha Rankin APRN, ACCOUNTING MANAGER CPA - 02/23/2018 9:02 AM CDT Neurosurgery Progress [...] including C3- T1 posterior fusion (done in [place] approx 6 years ago), with C6-T1 pseudoarthrosis, [...] Dc home today ?? Sirisha Maher APRN, ACCOUNTING MANAGER CPA 02/23/2018, 9:02 AM Neurosurgery Pgr#[phone] Jolene Kaur PA-C - 02/22/2018 12:45 PM [...] including C3- T1 posterior fusion (done in [place] approx 6 years ago), with C6-T1 pseudoarthrosis, [...] Lois Pham PA-C, 02/22/2018, 9:05 AM Neurosurgery [phone] He Reyes MD - 02/22/2018 8:29 AM [...] with any questionsor concerns. He Reyes M.D. [facility] [phone] INTERVAL HISTORY: She started tizanidine last night [...] 02/22/18 0743 Current Outpatient Prescriptions Ordered in [facility] Medication Sig Dispense Refill ??? [...] TIME SPENT: 35 minutes including 50% time iodn-tx-kguc time counseling her about her diagnosis and treatment options, and coordinating care with the primary team. DECISION-MAKING: The level of decision-making in this case is high/complex due to the complexity of medical problems, acute/chronic pain, opioid analgesia issues, and behavioral factors. He Reyes M.D. Brooklyn Whittington - 02/21/2018 1:47 PM CDT [facility] Care Management Screening Admission Info: [...] She see Dr Dr Estephanie Franz at [facility]. No DC needs anticipated. I verified the demographics on the face sheet for the correct address, phone number, emergency contact and PCP information. Brooklyn Whittington RN CM [phone] Lois Pham PA-C - 02/21/2018 9:23 AM CDT Neurosurgery Progress Note Date of service: 02/21/2018 Subjective: Feels sore. Upset she did not have DIRECTOR OF FIELD SALES overnight. Wants to go smoke. Wants to [...] including C3- T1 posterior fusion (done in [place] approx 6 years ago), with C6-T1 pseudoarthrosis, [...] there were a couple of options including DIRECTOR OF FIELD SALES vs IV pain medications for post op pain control, and rationale for non DIRECTOR OF FIELD SALES at this time. Did discuss that would not recommend DC as drain still has high output. Upright xrays prior to DC Up with assistance Continue hemovac until <30/shift Soft collar when OOB, PRN in bed for comfort PT/OT Dispo: Anticipate home in next 1-2 days pending drain output Lois Pham PA-C, 02/21/2018, 9:23 AM Neurosurgery [phone] He Reyes MD - 02/20/2018 1:20 PM CDT Note from Dr. Covarrubias on 02/13/18: ? 1. On the day of surgery please order an Inpatient pain consult 2. Ketamine 5mg/h during surgery ?? Recommendations for opioids: ?? If using a [employer]OR OF FIELD SALES: No oral opioids Start a [employer]OR [employer] pump with Dilaudid continuous IV infusion at a basal rate of 0.1 mg/hr with DIRECTOR OF FIELD SALES boluses of 0.2-0.4 mg every 10 minutes. ?? If not using a DIRECTOR OF FIELD SALES: Start dilaudid 2-4mg q3h prn (alternatively can [...] Pham PA-C - 02/20/2018 3:24 PM CDT [facility] Brief Operative Progress Note Surgery Date: 02/20/2018 Surgeon(s) and Role: * Marky Gonzalez MD - Primary PHYSICIAN IMPORT/EXPORT ADMINISTRATOR-Meka Pham Pre-op Diagnosis: * Cervical spondylosis with [...] The procedure was medically necessary for an hr administrative assistant because Dr. Gonzalez needed the operative [...] Lois Pham PA-C, 02/20/2018, 3:25 PM Neurosurgery [phone] Marky Gonzalez MD - 02/20/2018 12:00 AM CDT [facility]: [phone] OPERATIVE REPORT DATE OF SURGERY: 02/20/2018 : 1965 SURGEON: MARKY GONZALEZ MD IMPORT/EXPORT ADMINISTRATOR: Lois Pham PA-C. PREOPERATIVE DIAGNOSES: 1. Status [...] stepwise fashion using absorbable suture. We placed Taylor-BNI Video tongs and then flipped the patient prone [...] all critical portions. MARKY GONZALEZ MD MMK/MODL /[id number] cc: MARKY GONZALEZ MD documented in this [...] the risk. 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 She also [...] with any questionsor concerns. He Reyes M.D. [facility] [phone] HISTORY OF PRESENT ILLNESS: Per Chart Review: [...] - headache Opioid prescriber: LEDY Ojeda MD-valium [facility] database review: Risk Factors: History of substance [...] CURRENT MEDICATIONS: Current Facility-Administered Medications Ordered in [facility] Medication Dose Route Frequency Provider [...] Lois Pham PA-C ??? glucose-ascorbic acid (aka [id number]) chewable tablet 4 Tab 4 Tab Oral [...] TIME SPENT: 70 minutes including 50% time poaq-ek-swgq time counseling her about her diagnosis and treatment options, and coordinating care with the primary team. DECISION-MAKING: The level of decision-making in this case is high/complex due to the complexity of medical problems, acute/chronic pain, opioid analgesia issues, and behavioral factors. documented in this encounter Miscellaneous Notes OR Nursing - Monica Pate, RN - 02/20/2018 2:49 PM CDT [facility] Progress Note Patient Name: Angie [...] failure. Anatomic alignment. Shoulder prosthesis. Sirisha Maher MARINE CONSULTANT, ACCOUNTING MANAGER CPA RAD GD (ABNORMAL) Complete Blood Count-No Diff (02/22/2018 12:36 PM CDT) athologist Signature WBC 10.2 4.0 - 11.0 [facility] RBC 3.36 (L) 4.0 - 5.2 [facility] Hemoglobin 11.1 (L) 12.0 - 16.0 [facility] g/dl [facility] HCT 33.2 (L) 36.0 - 46.0 [facility] MCV 98.8 80 - 100 fl [facility] MCH 33.0 26 - 34 pg [facility] MCHC 33.4 32 - 36 [facility] g/dl [facility] RDW 14.4 11.5 - 14.5 [facility] Platelets 183 150 - 450 [facility] MPV 10.6 9.4 - 12.4 [facility] Specimen Anatomical Collection Method Collection Time Receive d Time (Source) Location / / Volume Laterality 02/22/2018 12:36 02/22/2018 PM CDT 12:37 PM CDT Narrative [facility] - 02/22/2018 12:46 PM C DT Performed at [facility] , [address] [place] [address] Lois Pham PA-C LAB_1 Performing Organization Address City/State/ZIP Code Phon e Number [facility] [address] [place] [address] [address], [facility] XR Cervical Spine AP/Lat Upright (02/21/2018 9:50 [...] Marky Gonzalez MD LAB_1 Performing Organization Address City/[facility] Phon e Number [address] [address] [place] [address], [facility] [phone] (ABNORMAL) Basic Metabolic Panel (02/21/2018 7:12 AM [...] Est., If >60 >60 [facility] Black ml/min/1.7 [facility] 3m2 Specimen Anatomical Collection Method Collection Time Receive d Time (Source) Location / / Volume Laterality 02/21/2018 7:12 AM 8 7:13 CDT AM CDT Narrative [facility] - 02/21/2018 7:47 AM CD T Performed at [facility] , [address] [place] [address] Lois Pham PA-C LAB_1 Performing Organization Address [facility]/ZIP [facility] Phon e Number [address] [address] [place] [address], [facility] (ABNORMAL) Hemogram with Plts (02/21/2018 7:12 AM CDT) athologist Signature WBC 10.0 4.0 - 11.0 [facility] RBC 3.29 (L) 4.0 - 5.2 [facility] Hemoglobin 10.7 (L) 12.0 - 16.0 [facility] g/dl HOSPITAL HCT 32.2 (L) 36.0 - 46.0 [facility] MCV 97.9 80 - 100 fl [facility] MCH 32.5 26 - 34 pg [facility] MCHC 33.2 32 - 36 [facility] g/dl HOSPITAL RDW 13.9 11.5 - 14.5 [facility] Platelets 186 150 - 450 [facility] MPV 10.3 9.4 - 12.4 [facility] Specimen Anatomical Collection Method Collection Time Receive d Time (Source) Location / / Volume Laterality 02/21/2018 7:12 AM 8 7:13 CDT AM CDT Narrative [facility] - 02/21/2018 7:26 AM CD T Performed at [facility] , [address] [place] [address] Lois Pham PA-C LAB_1 Performing Organization Address City/[facility] Phon e Number [address] [address], [facility] Glucose, Whole Blood POC (02/20/2018 11:20 PM CDT) athologist Signature Glucose, Whole 140 70 - 180 [facility] Blood mg/dl [facility] Comment: Point of Care Testing No Action Required Specimen Anatomical Collection Method Collection Time Receive d Time (Source) Location / / Volume Laterality 02/20/2018 11:20 02/20/2018 PM CDT 11:26 PM CDT Marky Gonzalez MD LAB_1 Performing Organization Address City/[facility] Phon e Number [address] [address], [facility] [phone] Glucose, Whole Blood POC (02/20/2018 5:05 PM CDT) athologist Signature Glucose, Whole 145 70 - 180 [facility] Blood mg/dl [facility] Comment: Point of Care Testing No Action Required Specimen Anatomical Collection Method Collection Time Receive d Time (Source) Location / / Volume Laterality 02/20/2018 5:05 PM 8 5:25 CDT PM CDT Marky Gonzalez MD LAB_1 Performing Organization Address City/State/ZIP Code Phon e Number [address] [address], [facility] Glucose, Whole Blood POC (02/20/2018 3:45 PM CDT) athologist Signature Glucose, Whole 145 70 - 180 [facility] Blood mg/dl HOSPITAL Comment: Point of Care Testing No Action Required Specimen Anatomical Collection Method Collection Time Receive d Time (Source) Location / / Volume Laterality 02/20/2018 3:45 PM 8 3:52 CDT PM CDT Marky Gonzalez MD LAB_1 Performing Organization Address City/[facility]/ZIP Code Phon e Number [address] [address], [facility] XR C-Arm 0-30 Minutes (02/20/2018 2:05 PM CDT) Anatomical Region Laterality Modality Other Specimen (Source) Anatomical Location Collection Method / Collectio n Time Received Time / Laterality Volume Narrative 02/20/2018 2:06 PM CDT Fluoroscopy provided by a radiology rn. Exact fluoroscopy time is documented in end of exam information in EPIC Marky Gonzalez MD RAD GD XR C-Arm 2.5-3 Hours (02/20/2018 12:45 PM CDT) Anatomical Region Laterality Modality Other Specimen (Source) Anatomical Location Collection Method / Collectio n Time Received Time / Laterality Volume Narrative 02/20/2018 12:45 PM CDT Fluoroscopy provided by a radiology rn. Exact fluoroscopy time is documented in end of exam information in EPIC Marky Gonzalez MD RAD GD XR C-Arm 30-59 Minutes (02/20/2018 12:36 PM CDT) Anatomical Region Laterality Modality Other Specimen (Source) Anatomical Location Collection Method / Collectio n Time Received Time / Laterality Volume Narrative 02/20/2018 12:36 PM CDT Fluoroscopy provided by a radiology rn. Exact fluoroscopy time is documented in end of exam information in EPIC Marky Gonzalez MD RAD GD Glucose, Whole Blood POC (02/20/2018 9:02 AM CDT) athologist Signature Glucose, Whole 135 70 - 180 [facility] Blood mg/dl [facility] Comment: Point of Care Testing RN Notified Specimen Anatomical Collection Method Collection Time Receive d Time (Source) Location / / Volume Laterality 02/20/2018 9:02 AM 8 9:08 CDT AM CDT Marky Gonzalez MD LAB_1 Performing Organization Address City/[facility]/ZIP Code Phon e Number [address] [address] [place] [address], [facility] [phone] Glucose, Whole Blood POC (02/20/2018 6:25 AM CDT) athologist Signature Glucose, Whole 90 70 - 180 [facility] Blood mg/dl [facility] Specimen Anatomical Collection Method Collection Time Receive d Time (Source) Location / / Volume Laterality 02/20/2018 6:25 AM 8 6:34 CDT AM CDT Marky Gonzalez MD LAB_1 Performing Organization Address City/[facility]/ZIP Code Phon e Number [address] [address], [facility] ABO/RH(D) Retype (02/20/2018 6:22 AM CDT) athologist Signature ABO/RH(D) A NEGATIVE [facility] Specimen Anatomical Collection Method Collection Time Receive d Time (Source) Location / / Volume Laterality 02/20/2018 6:22 AM 8 6:25 CDT AM CDT Narrative [facility] - 02/20/2018 7:06 AM CD T Performed at [facility] , [address] [place] [address] Marky Gonzalez MD LAB_1 Performing Organization Address City/[facility]/ZIP Code Phon e Number [address] [address], [facility] [phone] INR/Protime (PT/INR) (02/20/2018 6:08 AM CDT) P athologist Signature Protime 13.0 12.0 - 14.5 [facility] INR 1.0 0.9 - 1.1 [facility] Specimen Anatomical Collection Method Collection Time Receive d Time (Source) Location / / Volume Laterality 02/20/2018 6:08 AM 8 6:22 CDT AM CDT Narrative [facility] - 02/20/2018 6:40 AM CD T Performed at [facility] , [address] [place] [address] Sirisha Maher APRN, CNP LAB_1 Performing Organization Address City/[facility] Phon e Number [address] [address] [place] [address], [facility] Hemogram with Platelets (02/20/2018 6:08 AM CDT) P athologist Signature WBC 6.7 4.0 - 11.0 [facility] RBC 4.13 4.0 - 5.2 [facility] Hemoglobin 13.5 12.0 - 16.0 [facility] gdl [facility] HCT 39.8 36.0 - 46.0 [facility] MCV 96.4 80 - 100 [facility] MCH 32.7 26 - 34 pg [facility] MCHC 33.9 32 - 36 [facility] RDW 13.8 11.5 - 14.5 [facility] Platelets 245 150 - 450 [facility] MPV 10.6 9.4 - 12.4 [facility] Specimen Anatomical Collection Method Collection Time Receive d Time (Source) Location / / Volume Laterality 02/20/2018 6:08 AM 8 6:22 CDT AM CDT Narrative [facility] - 02/20/2018 6:32 AM CD T Performed at [facility] , [address] [place] [address] Sirisha Maher APRN, ACCOUNTING MANAGER CPA LAB_1 Performing Organization Address City/[facility]/ZIP [facility] Phon e Number [address] [address], [facility] (ABNORMAL) Basic Metabolic Panel (02/20/2018 6:08 AM CDT) athologist Signature Sodium 139 136 - 145 [facility] mmol/L [facility] Potassium 4.4 3.5 - 5.1 [facility] mmol/L HOSPITAL Comment: Specimen Slightly Hemolyzed Hemolysis May Affect Result Chloride 109 98 - 109 mmol/L [facility] AL CO2 18 (L) 20 - 29 mmol/L [facility] L Anion Gap (calc.) 12 7 - 16 mmol/L [facility] Glucose 96 70 - 180 mg/dl [facility] L Calcium 9.4 8.4 - 10.2 mg/dl [facility] EHSAN BUN 14 7 - 26 mg/dl [facility] Creatinine 0.69 0.55 - 1.02 mg/dl [facility] GFR, Estimated >60 >60 ml/min/1.73m2 [facility] GFR, Est., If Black >60 >60 ml/min/1.73m2 [facility] Specimen Anatomical Collection Method Collection Time Receive d Time (Source) Location / / Volume Laterality 02/20/2018 6:08 AM 8 6:22 CDT AM CDT [facility] - 02/20/2018 6:52 AM CD T Performed at [facility] , [address] [place] [address] Sirisha Maher APRN, ACCOUNTING MANAGER CPA LAB_1 Performing Organization Address City/State/ZIP Code Phon e Number [address] [address], [facility] [phone] aPTT (Activated Partial Thromboplastin Time) (02/20/2018 6:08 AM CDT) athologist Signature PTT 26.8 24.0 - 37.0 [facility] sec [facility] Specimen Anatomical Collection Method Collection Time Receive d Time (Source) Location / / Volume Laterality 02/20/2018 6:08 AM 8 6:22 CDT AM CDT [facility] - 02/20/2018 6:40 AM CD T Performed at [facility] , [address] [place] [address] Sirisha Celaya Sneha Maher APRN, ACCOUNTING MANAGER CPA LAB_1 Performing Organization Address City/[facility]/ZIP Code Phon e Number [address] [address], [facility] [phone] ABO Rh & Antibody Screen (Type & Screen) (02/20/2018 6:07 AM CDT) [facility] gist Method Time Signature Crossmatch 02/23/2018 [facility] ABO/RH(D) A NEGATIVE [facility] Antibody NEGATIVE [facility] Screen HOSPITAL Specimen Anatomical Collection Method Collection Time Receive d Time (Source) Location / / Volume Laterality 02/20/2018 6:07 AM 8 6:22 CDT AM CDT Narrative [facility] - 02/20/2018 7:10 AM CD T Performed at [facility] , [address] [place] [address] Sirisha Maher APRN, ACCOUNTING MANAGER CPA LAB_1 Performing Organization Address City/[facility] Phon e Number [address] [address], [facility] [phone] EKG IP (02/20/2018 12:00 AM CDT) Specimen (Source) Anatomical Location Collection Method / Collectio n Time Received Time / Laterality Volume 02/20/2018 Narrative This result has an attachment that is no t available. Provider [facility] EKG documented in this encounter Visit Diagnoses [...] Segura, RN - 02/23/2018 9:57 AM CDT [facility] Plan of Care Note Assessment: [...] Carbajal RN - 02/23/2018 7:43 AM CDT [facility] Plan of Care Note Assessment: [...] Rico RN - 02/22/2018 10:15 PM CDT [facility] Plan of Care Note Assessment: [...] Rico RN - 02/22/2018 4:00 PM CDT [facility]. MD Notified Note Name of MD notified: Ankit Time of MD notification: 1600 hours and 1 minute Reason: Pt.asking for valium now and current order for HS prn. plz review. [id number]. Response: Valium one time dose now and HS prn. Shawn Butcher RN --- End of Report --- Plan of Care - Alec Gifford RN - 02/22/2018 1:57 PM CDT [facility] Plan of Care Note Assessment: [...] Lundberg RN - 02/22/2018 2:32 AM CDT [facility] Plan of Care Note Assessment: [...] Orellana RN - 02/22/2018 12:33 AM CDT [facility] Plan of Care Note Assessment: [...] Gifford RN - 02/21/2018 1:41 PM CDT [facility] Plan of Care Note Assessment: [...] Lundberg RN - 02/21/2018 4:56 AM CDT [facility]. MD Notified Note Name of MD notified: Neurosurg Time of MD notification: 0400 hours and 55 minutes Reason: [id number]- Pt reporting oral/IV pain meds ineffective. Pt upset, req further intervention. Please advise. Thanks. Response: Discussed w/ neurosurg. To be addressed in AM and PRNs to continue to be administered as able. Anita Lundberg RN --- End of Report --- Plan of Care - Anita Lundberg RN - 02/21/2018 2:26 AM CDT [facility] Plan of Care Note Assessment: [...] and Signs and Symptoms Outcome: Progressing 02/20/18 0956 Pain, Acute Related Risk Factors (Acute Pain) surgery;procedure/treatment;persistent pain;disease process Signs and Symptoms (Acute Pain) alteration in muscle tone;sleep pattern alteration;verbalization of pain descriptors;questions meaning of pain;pacing/restlessness Goal: Acceptable Pain Control/Comfort Level 02/20/18 2356 Pain, Acute (Adult) Acceptable Pain Control/Comfort Level unable to achieve outcome Comments: [facility] Plan of Care Note Assessment: posterior neck pain worst than anterior Plan: IHR, assessment, pain control Subjective: I thought that I was going to be on a dilaudid drip Objective: Pt angry that she was not on a DIRECTOR OF FIELD SALES pump, Dilaudid PO and IV given q3h, [...] 10:32 AM CDT 2 Patches lidocaine-epinephrine 1 %-1:[id number] injec tion Given 02/20/2018 10:21 AM CDT [...] Alec Gifford RN) 0742 (Given - Provider: Aelc Gifford RN) 0818 (Given - P rovider: [...] HS
documented in this encounter Care Teams Manager Administration Relationship Specialty Start Date End Date Jose Holden MD PCP - General Otolaryngology 12/14/[address] [place] [id number] documented as of this encounter
--- OUTSIDE RECORDS SUMMARY | 2022-08-08 22:54 | XMS_ITS | Encounter Summary ---
:1965 [facility] Address [address] [address] Care Team Providers Name Role Phone Jose Holden MD Primary Care Provider [phone] Reason for Visit Auth/Cert Specialty Diagnoses / [...] Expiration Date Visits Requ ested Visits Authorized [id number] 1 1 Encounter Details Date Type Department Care Team Description 02/21/2018 [facility] Pete Gonzalez MD [address] [place] [address] [place] [address] [phone] (Wo rk) Social History Tobacco Use Types [...] on filedocumented in this encounter Care Teams Solid Propellant Processor Relationship Specialty Start Date End Date Jose Holden MD PCP - General Otolaryngology 12/14/[address] [place] [id number] documented as of this encounter
--- OUTSIDE RECORDS SUMMARY | 2022-08-08 22:54 | XMS_ITS | Encounter Summary ---
:1965 Author Organization [facility] Address [address], [place] [address] Care Team Providers Name Role Phone Jose Holden MD Primary Care Provider [phone] Reason for Visit Reason Comments Refill Encounter Details Date Type Department Care Team Description 03/07/2018 [facility] Refill Center [facility] [address] [facility] [place] [place] [address] [address] [place] [address] [phone] Social History Tobacco Use Types Packs/Day Years [...] on filedocumented in this encounter Care Teams Keyboard Instrument Tuner Relationship Specialty Start Date End Date Jose Holden MD PCP - General Otolaryngology 12/14/[address] [place] [id number] documented as of this encounter
--- OUTSIDE RECORDS SUMMARY | 2022-08-08 22:54 | XMS_ITS | Encounter Summary ---
:1965 [facility] Address [address], [place] [address] Care Team Providers Name Role Phone Jose Holden MD Primary Care Provider [phone] Reason for Referral Procedure/Equipment (Routine) - Incomplete Specialty Diagnoses / Procedures Referred By Contact Refer red To Contact Diagnoses Cervical spondylosis with radiculopathy (HRC) Sirisha Rankin, Procedures XR Cervical Spine AP/Lat Upright KALPANA SHER [address] [place] [address] Referral ID Status Reason Start Date Expiration Date Visits V isits Requested Authorized [id number] Incomplete 02/21/2018 05/23/2019 1 1 (Routine) Specialty Diagnoses / Procedures Referred By Contact Refer red To Contact Sirisha Rankin APRN, CNP [address] [place] [address] Referral ID Status Reason Start Date Expiration Date Visits Requ ested Visits Authorized (Routine) - Incomplete Specialty Diagnoses / Procedures Referred By Contact Refer red To Contact Procedures Marky Gonzalez MD XR C-Arm 0-30 Minutes [address] [place] [address] Referral ID Status Reason Start Date Expiration Date Visits V isits Requested Authorized [id number] Incomplete 02/20/2018 05/22/2019 1 1 Procedure/Equipment (Routine) - Incomplete Specialty Diagnoses / Procedures Referred By Contact Refer red To Contact Procedures Lois Pham, STEPHANIE XR Cervical Spine AP/Lat [address] [place], [place] [address] Referral ID Status Reason Start Date Expiration Date Visits V isits Requested Authorized [id number] Incomplete 02/20/2018 05/22/2019 1 1 (Routine) - Incomplete Specialty Diagnoses / Procedures Referred By Contact Refer red To Contact Procedures Marky Gonzalez MD XR C-Arm 30-[address] [place] [address] XR C-Arm 0-30 Minutes [place], [place] [address] Referral ID Status Reason Start Date Expiration Date Visits V isits Requested Authorized [id number] Incomplete 02/20/2018 05/22/2019 1 1 (Routine) - Incomplete Specialty Diagnoses / Procedures Referred By Contact Refer red To Contact Procedures Marky Gonzalez MD XR C-Arm 2.5-[address] [place] [address] Referral ID Status Reason Start Date Expiration Date Visits V isits Requested Authorized [id number] Incomplete 02/20/2018 05/22/2019 1 1 Reason for [...] Expiration Date Visits Requ ested Visits Authorized [id number] 1 1 Encounter Details Date Type Department Care Team Description 02/20/2018 - Hospital [facility] Marky Gonzalez, Cervical spondylosis with ra diculopathy (Primary Dx); 02/23/2018 Encounter [address] Ervin MD Cervical vertebral fusion; [place], [place] [id number] [place] 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 old female [...] Hospital Course: Angie Bender was admitted to [facility] on 02/20/2018 following posterior C2-T3 with [...] 9.4 - 12.4 fl Narrative Performed at [facility], [address] [place] [address] Physical Exam: BP 124/78 Pulse 74 Temp [...] in strength to your extremeties. Neurosurgery clinic [phone]. If it is after hours, please call [...] RN on 03/07 at 11AM at [address] [facility], 2nd floor. 2. Follow up with Dr. Gonzalez/Lois Pham PA-C/Sirisha Maher NP [facility] 04[facility]00[facility] Patient also instructed to call clinic at [phone] or hospital for any questions or concerns. Patient verbalizes understanding and states no further questions at this time. 3. Follow up with PCP for any medical issues Total time spent at the time of discharge was 30 minutes Sirisha Maher APRN, CNP [facility]#[phone] documented in this encounter Discharge Instructions Discharge InstructionsDonna Ellis RN - 02/23/2018 10:42 AM CDT Hospital Contact Information [address] [address] General Information Discharging physician: Dr. Gonzalez [facility] Resources Emergency & Urgently Needed Care: For emergencies call 911 and/or get medical help right away. If you are a [facility] member and have medical needs after clinic hours you [phone] or . Fall Prevention Recommendations ??? Follow [...] Ellis RN - 02/23/2018 11:50 AM CDT [facility] Discharge Note - Nursing [...] of Report --- Sneha Maher, Sirisha Celaya, MANAGER [employer], [employer] WALKER - 02/23/2018 9:02 AM CDT Neurosurgery Progress [...] including C3- T1 posterior fusion (done in [place] approx 6 [...] Dc home today ?? Sirisha Maher, NIKKY, LINE WALKER 02/23/2018, 9:02 AM Neurosurgery Pgr#[phone] Jolene Kaur PA-C - 02/22/2018 12:45 PM [...] including C3- T1 posterior fusion (done in [place] approx 6 [...] Lois Pham PA-C, 02/22/2018, 9:05 AM Neurosurgery [phone] He Reyes MD - 02/22/2018 8:29 AM [...] He Reyes M.D. [facility] [phone] INTERVAL HISTORY: She started tizanidine last night [...] 02/22/18 0743 Current Outpatient Prescriptions Ordered in [facility] Medication Sig Dispense Refill ??? sennosides-docusate [...] TIME SPENT: 35 minutes including 50% time kbjv-zj-wqwz time counseling her about her diagnosis and treatment options, and coordinating care with the primary team. DECISION-MAKING: The level of decision-making in this case is high/complex due to the complexity of medical problems, acute/chronic pain, opioid analgesia issues, and behavioral factors. He Reyes M.D. Brooklyn Whittington - 02/21/2018 1:47 PM CDT [facility] Care Management Screening Admission Info: [...] She see Dr Dr Estephanie Franz at [facility]. No DC needs anticipated. I verified the demographics on the face sheet for the correct address, phone number, emergency contact and PCP information. Brooklyn Whittington RN CM [phone] Lois Pham PA-C - 02/21/2018 9:23 AM CDT Neurosurgery Progress Note Date of service: 02/21/2018 Subjective: Feels sore. Upset she did not have NEUROSCIENTIST overnight. Wants to go smoke. Wants to [...] there were a couple of options including NEUROSCIENTIST vs IV pain medications for post op pain control, and rationale for non NEUROSCIENTIST at this time. Did discuss that would not recommend DC as drain still has high output. Upright xrays prior to DC Up with assistance Continue hemovac until <30/shift Soft collar when OOB, PRN in bed for comfort PT/OT Dispo: Anticipate home in next 1-2 days pending drain output Lois Pham PA-C, 02/21/2018, 9:23 AM Neurosurgery [phone] He Reyes MD - 02/20/2018 1:20 PM [address]T Note from Dr. Covarrubias on 02/13/18: ? 1. On the day of surgery please order an Inpatient pain consult 2. Ketamine 5mg/h during surgery ?? Recommendations for opioids: ?? If using a NEUROSCIENTIST: No oral opioids Start a NEUROSCIENTIST pump with Dilaudid continuous IV infusion at a basal rate of 0.1 mg/hr with NEUROSCIENTIST boluses of 0.2-0.4 mg every 10 minutes. ?? If not using a NEUROSCIENTIST: Start dilaudid 2-4mg q3h prn (alternatively can [...] Pham PA-C - 02/20/2018 3:24 PM CDT [facility] Brief Operative Progress Note Surgery Date: 02/20/2018 Surgeon(s) and Role: * Marky Gonzalez MD - Primary PHYSICIAN GAUGE OPERATOR-Meka Pham Pre-op Diagnosis: * Cervical spondylosis [...] The procedure was medically necessary for an administrative assistant because Dr. Gonzalez needed the [...] Lois Pham PA-C, 02/20/2018, 3:25 PM Neurosurgery [phone] Marky Gonzalez MD - 02/20/2018 12:00 AM CDT ANGIE BENDER CSN: [id number] OPERATIVE REPORT DATE OF SURGERY: 02/20/2018 : 1965 SURGEON: MARKY GONZALEZ MD GAUGE OPERATOR: Lois Pham PA-C. PREOPERATIVE DIAGNOSES: 1. [...] performing all critical portions. MD YOLANDE COLEMAN/ALESSANDRO /[id number] cc: MARKY GONZALEZ MD documented in this [...] the risk. 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 She also [...] He Reyes M.D. [facility] [phone] HISTORY OF PRESENT ILLNESS: Per Chart Review: [...] headache Opioid prescriber: Rosetta Martin-LEDY Jerry MD-valium SUB ARC OPERATOR database review: Risk Factors: History of [...] Lois Pham PA-C ??? glucose-ascorbic acid (aka [id number]) chewable tablet 4 Tab 4 Tab Oral [...] TIME SPENT: 70 minutes including 50% time ujrj-lb-nbao time counseling her about her diagnosis and treatment options, and coordinating care with the primary team. DECISION-MAKING: The level of decision-making in this case is high/complex due to the complexity of medical problems, acute/chronic pain, opioid analgesia issues, and behavioral factors. documented in this encounter Miscellaneous Notes OR Nursing - Monica Pate RN - 02/20/2018 2:49 PM CDT [facility] Progress Note Patient Name: Angie Bender Date [...] failure. Anatomic alignment. Shoulder prosthesis. Sirisha Maher MANAGER [employer], [employer]ALKER RAD GD (ABNORMAL) Complete Blood Count-No Diff (02/22/2018 12:36 PM CDT) P athologist Signature WBC 10.2 4.0 - 11.0 [facility] k/ul HOSPITAL RBC 3.36 (L) 4.0 - 5.2 [facility] M/ul [facility] Hemoglobin 11.1 (L) 12.0 - 16.0 [facility] g/dl HOSPITAL HCT 33.2 (L) 36.0 - 46.0 [facility]PITAL MCV 98.8 80 - 100 fl [facility] MCH 33.0 26 - 34 pg [facility] MCHC 33.4 32 - 36 [facility] g/dl HOSPITAL RDW 14.4 11.5 - 14.5 [facility] HOSPITAL Platelets 183 150 - 450 [facility] k/[facility] MPV 10.6 9.4 - 12.4 [facility] Specimen Anatomical Collection Method Collection Time Receive d Time (Source) Location / / Volume Laterality 02/22/2018 12:36 02/22/2018 PM CDT 12:37 PM CDT Narrative [facility] - 02/22/2018 12:46 PM C DT Performed at [facility] , [address] [place] [address] Lois Pham PA-C LAB_1 Performing Organization Address City/State/ZIP Code Phon e Number [id number] [place] [address] [phone] XR Cervical Spine AP/Lat Upright (02/21/2018 9:50 [...] Organization Address City/State/ZIP Code Phon e Number [address] [address], [facility] (ABNORMAL) Basic Metabolic Panel (02/21/2018 7:12 AM CDT) athologist Signature Sodium 138 136 - 145 [facility] mmol/L [facility] Potassium 3.9 3.5 - 5.1 [facility] mmol/L [facility] Chloride 111 (H) 98 - 109 [facility] mmol/L [facility] CO2 20 20 - 29 [facility] mmol/L [facility] Anion Gap 7 7 - 16 [facility] (calc.) mmol/L [facility] Glucose 117 70 - 180 [facility] mg/dl HOSPITAL Calcium 8.3 (L) 8.4 - 10.2 [facility] mg/dl [facility]OSPITAL BUN 14 7 - 26 [facility] mg/dl [facility] Creatinine 0.63 0.55 - [facility] 1.02 mg/dl HOSPITAL GFR, Estimated >60 >60 [facility] ml/min/1.7 [facility] 3m2 GFR, Est., If >60 >60 [facility] Black ml/min/1.7 [facility] 3m2 Specimen Anatomical Collection Method Collection Time Receive d Time (Source) Location / / Volume Laterality 02/21/2018 7:12 AM 8 7:13 CDT AM CDT Narrative [facility] - 02/21/2018 7:47 AM CD T Performed at [facility] , [address] [place] [address] Lois Pham PA-C LAB_1 Performing Organization Address City/State/[place] [address] [address], [facility] (ABNORMAL) Hemogram with Plts (02/21/2018 7:12 AM CDT) athologist Signature WBC 10.0 4.0 - 11.0 [facility] RBC 3.29 (L) 4.0 - 5.2 [facility] Hemoglobin 10.7 (L) 12.0 - 16.0 [facility] g/dl [facility] HCT 32.2 (L) 36.0 - 46.0 [facility] MCV 97.9 80 - 100 [facility] MCH 32.5 26 - 34 pg [facility] MCHC 33.2 32 - 36 [facility] g/dl [facility] RDW 13.9 11.5 - 14.5 [facility] Platelets 186 150 - 450 [facility] MPV 10.3 9.4 - 12.4 [facility] Specimen Anatomical Collection Method Collection Time Receive d Time (Source) Location / / Volume Laterality 02/21/2018 7:12 AM 8 7:13 CDT AM CDT Narrative [facility] - 02/21/2018 7:26 AM CD T Performed at [facility] , [address] [place] [address] Lois Pham PA-C LAB_1 Performing Organization Address City/[facility]/ZIP Code Phon e Number [address] [address], [facility] Glucose, Whole Blood POC (02/20/2018 11:20 PM CDT) P athologist Signature Glucose, Whole 140 70 - 180 [facility] Blood mg/dl HOSPITAL Comment: Point of Care Testing No Action Required Specimen Anatomical Collection Method Collection Time Receive d Time (Source) Location / / Volume Laterality 02/20/2018 11:20 02/20/2018 PM CDT 11:26 PM CDT Marky Gonzalez MD LAB_1 Performing Organization Address [facility] Phon e Number [address] [address], [place] Glucose, Whole Blood POC (02/20/2018 5:05 PM CDT) P athologist Signature Glucose, Whole 145 70 - 180 [facility] Blood mg/dl [facility]OSPITAL Comment: Point of Care Testing No Action Required Specimen Anatomical Collection Method Collection Time Receive d Time (Source) Location / / Volume Laterality 02/20/2018 5:05 PM 8 5:25 CDT PM CDT Marky Gonzalez MD LAB_1 Performing Organization Address City/[facility]/ZIP [facility] Phon e Number [address] [address], [place] [phone] Glucose, Whole Blood POC (02/20/2018 3:45 PM [...] Organization Address City/State/ZIP Code Phon e Number [address] [address], [place] XR C-Arm 0-30 Minutes (02/20/2018 2:05 [...] Organization Address City/State/ZIP Code Phon e Number [address] [address], [place] [phone] Glucose, Whole Blood POC (02/20/2018 6:25 AM CDT) athologist Signature Glucose, Whole 90 70 - 180 [facility] Blood mg/dl [facility] Specimen Anatomical Collection Method Collection Time Receive d Time (Source) Location / / Volume Laterality 02/20/2018 6:25 AM 8 6:34 CDT AM CDT Marky Gonzalez MD LAB_1 Performing Organization Address City/[facility]/ZIP [facility] Phon e Number [address] [address], [facility] ABO/RH(D) Retype (02/20/2018 6:22 AM CDT) athologist Signature ABO/RH(D) A NEGATIVE [facility] Specimen Anatomical Collection Method Collection Time Receive d Time (Source) Location / / Volume Laterality 02/20/2018 6:22 AM 8 6:25 CDT AM CDT Narrative [facility] - 02/20/2018 7:06 AM CD T Performed at [facility] , [address] [place] [address] Marky Gonzalez MD LAB_1 Performing Organization Address [facility] Phon e Number [address] [address], [facility] INR/Protime (PT/INR) (02/20/2018 6:08 AM CDT) athologist Signature Protime 13.0 12.0 - 14.5 [facility] INR 1.0 0.9 - 1.1 [facility] Specimen Anatomical Collection Method Collection Time Receive d Time (Source) Location / / Volume Laterality 02/20/2018 6:08 AM 8 6:22 CDT AM CDT Narrative [facility] - 02/20/2018 6:40 AM CD T Performed at [facility] , [address] [place] [address] Sirisha Maher APRN, LINE WALKER LAB_1 Performing Organization Address [facility]/ZIP [facility] Phon e Number [address] [address], [facility] [phone] Hemogram with Platelets (02/20/2018 6:08 AM CDT) athologist Signature WBC 6.7 4.0 - 11.0 [facility] k/ul [facility] RBC 4.13 4.0 - 5.2 [facility] M/ul [facility] Hemoglobin 13.5 12.0 - 16.0 [facility] g/dl [facility] HCT 39.8 36.0 - 46.0 [facility]OSPITAL MCV 96.4 80 - 100 fl [facility] MCH 32.7 26 - 34 pg [facility] MCHC 33.9 32 - 36 [facility] g/dl HOSPITAL RDW 13.8 11.5 - 14.5 [facility] Platelets 245 150 - 450 [facility] k/[facility] MPV 10.6 9.4 - 12.4 [facility] Specimen Anatomical Collection Method Collection Time Receive d Time (Source) Location / / Volume Laterality 02/20/2018 6:08 AM 8 6:22 CDT AM CDT Narrative [facility] - 02/20/2018 6:32 AM CD T Performed at [facility] , [address] [place] [address] Sirisha Maher APRN, LINE WALKER LAB_1 Performing Organization Address [facility]/State/[place] [address] [phone] (ABNORMAL) Basic Metabolic Panel (02/20/2018 6:08 AM CDT) athologist Signature Sodium 139 136 - 145 [facility] mmol/L [facility] Potassium 4.4 3.5 - 5.1 [facility] mmol/L [facility] Comment: Specimen Slightly Hemolyzed Hemolysis May Affect Result Chloride 109 98 - 109 mmol/L [facility] AL CO2 18 (L) 20 - 29 mmol/L [facility] L Anion Gap (calc.) 12 7 - 16 mmol/L [facility] Glucose 96 70 - 180 mg/dl [facility] L Calcium 9.4 8.4 - 10.2 mg/dl [facility] EHSAN BUN 14 7 - 26 mg/dl [facility] Creatinine 0.69 0.55 - 1.02 mg/dl [facility] HOS PITAL GFR, Estimated >60 >60 ml/min/1.73m2 [facility] GFR, Est., If Black >60 >60 ml/min/1.73m2 [facility] Specimen Anatomical Collection Method Collection Time Receive d Time (Source) Location / / Volume Laterality 02/20/2018 6:08 AM 8 6:22 CDT AM CDT Narrative [facility] - 02/20/2018 6:52 AM CD T Performed at [facility] , [address] [place] [address] Sirisha Maher APRN [employer] LAB_1 Performing Organization Address City/[facility] Phon e Number [address] [address], [facility] [phone] aPTT (Activated Partial Thromboplastin Time) (02/20/2018 6:08 AM CDT) P athologist Signature PTT 26.8 24.0 - 37.0 [facility] Specimen Anatomical Collection Method Collection Time Receive d Time (Source) Location / / Volume Laterality 02/20/2018 6:08 AM 8 6:22 CDT AM CDT Narrative [facility] - 02/20/2018 6:40 AM CD T Performed at [facility] , [address] [place] [address] Sirisha Maher APRN, [employer] WALKER LAB_1 Performing Organization Address City/[facility] Phon e Number [address] [address], [facility] [phone] ABO Rh & Antibody Screen (Type & Screen) (02/20/2018 6:07 AM CDT) Patholo gist Method Time Signature Crossmatch 02/23/2018 [facility] Expires [facility] ABO/RH(D) A NEGATIVE [facility] Antibody NEGATIVE [facility]OSPITAL Specimen Anatomical Collection Method Collection Time Receive d Time (Source) Location / / Volume Laterality 02/20/2018 6:07 AM 8 6:22 CDT AM CDT [facility] - 02/20/2018 7:10 AM CD T Performed at [facility] , [address] [place] [address] Sirisha Maher APRN, CNP LAB_1 Performing Organization Address City/State/ZIP Code Phon e Number [address] [address], [facility] [phone] EKG IP (02/20/2018 12:00 AM CDT) Specimen [...] Segura RN - 02/23/2018 9:57 AM CDT [facility] Plan of Care Note Assessment: Incisions C/D/I [...] Carbajal RN - 02/23/2018 7:43 AM CDT [facility] Plan of Care Note Assessment: pain Plan: [...] Rico RN - 02/22/2018 10:15 PM CDT [facility] Plan of Care Note Assessment: comfort level [...] Rico RN - 02/22/2018 4:00 PM CDT [facility]. MD Notified Note Name of MD notified: Ankit Time of MD notification: 1600 hours and 1 minute Reason: Pt.asking for valium now and current order for HS prn. pljuan david review. [id number]. Response: Valium one time dose now and HS prn. Shawn Butcher RN --- End of Report --- Plan of Care - Alec Gifford RN - 02/22/2018 1:57 PM CDT [facility] Plan of Care Note Assessment: pain Plan: [...] Lundberg RN - 02/22/2018 2:32 AM CDT [facility] Plan of Care Note Assessment: Pain Plan: [...] Orellana RN - 02/22/2018 12:33 AM CDT [facility] Plan of Care Note Assessment: Pain Plan: [...] Gifford RN - 02/21/2018 1:41 PM CDT [facility] Plan of Care Note Assessment: pain control [...] Lundberg RN - 02/21/2018 4:56 AM CDT [facility]. MD Notified Note Name of MD notified: Neurosurg Time of MD notification: 0400 hours and 55 minutes Reason: [id number]- Pt reporting oral/IV pain meds ineffective. Pt upset, req further intervention. Please advise. Thanks. Response: Discussed w/ neurosurg. To be addressed in AM and PRNs to continue to be administered as able. Anita Lundberg RN --- End of Report --- Plan of Care - Anita Lundberg RN - 02/21/2018 2:26 AM CDT [facility] Plan of Care Note Assessment: Pain Plan: [...] Control/Comfort Level unable to achieve outcome Comments: [facility] Plan of Care Note Assessment: posterior neck pain worst than anterior Plan: IHR, assessment, pain control Subjective: I thought that I was going to be on a dilaudid drip Objective: Pt angry that she was not on a NEUROSCIENTIST pump, Dilaudid PO and IV given q3h, [...] PM CDT 50 mcg 25-50 mcg, Intravenous, [id number], Pain, Starting on Tue02/20/18 at 1451, Until [...] rovider: Anita Lundberg RN)[phone] (Given - Provider: Antia Lundberg RN)0738 (Given - Provider: Alec Gifford [...] HS
documented in this encounter Care Teams Dye Blender Relationship Specialty Start Date End Date Jose Holden MD PCP - General Otolaryngology 12/14/17 [place] [address] documented as of this encounter
--- OUTSIDE RECORDS SUMMARY | 2022-08-08 22:55 | XMS_ITS | Encounter Summary ---
:1965 Author Organization [facility] Address [address], [place] [address] Care Team Providers Name Role Phone Unassigned, Provider Primary Care Provider Unavailable Reason for Referral Procedure/Equipment (Routine) - Incomplete Specialty Diagnoses / Procedures Referred By Contact Refer red To Contact Diagnoses Screening procedure Pseudarthrosis after fusion or arthrodesis Pete Gonzalez MD Procedures FL Video Swallow Study [address] [place] [address] Referral ID Status Reason Start Date Expiration Date Visits V isits Requested Authorized [id number] Incomplete 11/29/2017 02/28/2019 1 1 herapies (Routine) - Closed Specialty Diagnoses / Procedures Referred By Contact Refer herson To Contact Diagnoses Pseudarthrosis after fusion or arthrodesis Screening procedure Pete Gonzalez MD [address] [place] [address] Referral ID Status Reason Start Date Expiration Date Visits Requ ested Visits Authorized [id number] Closed 11/29/2017 01/28/2018 1 1 Scheduling Instructions Your provider has recommended an appoint ment with a [facility]rap[facility]. Please stop at the clinic check out desk for as sistance with scheduling or if you prefer to call for your appointment you may call [facility] at [phone]. We suggest you call your [facility] insurance company about your coverage and benefits for this appointment. C VIDEO DIRECTOR Consult/Transfer Care (Routine) - Closed Specialty Diagnoses / Procedures Referred By Contact Refer red To Contact Diagnoses Pseudarthrosis after fusion or arthrodesis Screening procedure Pete Gonzalez MD [address] [place] [address] Referral ID Status Reason Start Date Expiration Date Visits Requ ested Visits Authorized [id number] Closed 11/29/2017 02/28/2019 1 1 Scheduling Instructions Your provider has recommended an appoint ment with [facility]. You may call [phone], optio n [phone], to schedule your appointment. If you prefer, a special forces engineer sergeant will contact you heena hebert the next 3 business days to assist you in setting up this appointment. We suggest you call your health insurance company about your coverage and benefits for this appo intment. C VIDEO DIRECTOR Procedure/Equipment (Routine) - Incomplete Specialty Diagnoses / Procedures Referred By Contact Refer red To Contact Diagnoses Screening procedure Pseudarthrosis after fusion or arthrodesis Pete Gonzalez MD Procedures XR Cervical Spine W Flex And Ext [address] [place] [address] Referral ID Status Reason Start Date Expiration Date Visits V isits Requested Authorized [id number] Incomplete 10/31/2017 01/30/2019 1 1 C VIDEO DIRECTOR Reason for Visit Reason Comments SECOND OPINION Consult/Transfer Care (Routine) - Closed Specialty Diagnoses / Procedures Referred By Contact Refer red To Contact Neurosurgery Ihsan Brooke MD [facility] [place] [address] [place] [address] [place] [address]. [place] [address] Phone: Fax: Referral ID Status Reason Start Date Expiration Date Visits Requ ested Visits Authorized [id number] Closed 09/26/2017 12/26/2018 1 1 Encounter Details Date Type Department Care Team Description 11/29/2017 Office Visit [facility] Pete Gonzalez, Pseudarthr osis after fusion or arthrodesis (Primary Dx); [facility] Cervical spondylosis with radiculopathy; Neurosurgery/Ortho [address] Bil[address] occipital neuralgia; [address] Screening procedure [address] [place] [address] [place] [address] [phone] Social History Tobacco Use Types Packs/Day Years Used Date Smoking Tobacco: Every Day Cigarettes 0.5 Smokeless Tobacco: Never Alcohol Use Standard Drinks/Week Comments No 0 (1 standard drink = 0.6 oz pure alcoho l) Sex Assigned at Date Recorded Not on file documented as of this encounter Last Filed Vital Signs Vital Sign Reading Time Taken Comments Blood Pressure 126/77 11/29/2017 10:21 AM MUSIC VIDEO DIRECTOR Pulse 77 11/29/2017 10:21 AM MUSIC VIDEO DIRECTOR Temperature - - Respiratory Rate - - Oxygen Saturation - - Inhaled Oxygen Concentration - - Weight 75.4 kg (166 lb 3.2 oz) 11/29/2017 10:21 AM MUSIC VIDEO DIRECTOR Height 152.4 cm (5') 11/29/2017 10:21 AM MUSIC VIDEO DIRECTOR Body Mass Index 32.46 11/29/2017 10:21 AM MUSIC VIDEO DIRECTOR documented in this encounter Patient Instructions Patient InstructionsChava Simon RN - 11/29/2017 10:[address] [facility] Patient Instructions Tests: You will be [...] your understanding. Please call the Neurosurgery Center [phone] with any further questions or concerns or if your symptoms worsen. Thank you for coming to see us today. We are your partner. C VIDEO DIRECTOR documented in this encounter Progress Notes Lois [...] after C3-T1 posterior cervical fusion done at [facility] in [place] multiple years ago. The T1 screws are [...] on fentanyl, ms contin and oxycontin in [place]. PSURGHX:No past surgical history on file. PMEDHX:No past medical history on file. MEDICATIONS: Outpatient Prescriptions as of 11/29/2017: benzonatate (TESSALON) 100 MG capsule Take 100 mg by mouth. Note (11/29/2017): Received from: [facility] Received Sig: Take 1 capsule by mouth 3 times daily if needed for Cough. Disp: Rfl: budesonide-formoterol (SYMBICORT) 160-4.5 MCG/ACT inhaler Inhale 2 Puffs. Note (11/29/2017): Received from: [facility] [employer] Received Sig: INHALE 2 PUFFS BY [...] Tab by mouth. Note (11/29/2017): Received from: [facility] Received Sig: Take 1 tablet bymouth [...] No narrative on file ROS: Reviewed per [facility] Neurosurgery New Patient Health Packet [...] 4/5 C7 Triceps: 5/5 4/5 C8 Finger flexors/installation manager: 5/5 5/5 T1 Intrinsics: 5/5 5/5 Sensation: Intact with light touch bue/ble. Skin: Warm to touch to bilateral upper/lower extremities. No skin rashes or lesions noted RADIOLOGY: Personally reviewed CT scans from OSH as well as XR from here. No formal report for either available. Shows previous C3-T1 posterior fusion, appears fused C3-C6, screws at T1 appear lose. [id number] through the facet joint. ASSESSMENT: 52 year old female s/p multiple previous cervical spine surgeries including C3-T1 posterior fusion (done in [place] approx 6 years ago), with C6-T1 pseudoarthrosis, [...] of the chart to: Ihsan Brooke MD [address] [id number] Lois Pham PA-C, 11/29/2017, 12:34 PM C VIDEO DIRECTOR documented in this encounter Plan of Treatment Scheduled Referrals Name Type Priority Associated Diagnoses Order S chedule Otolaryngology Consult Referral Routine Pseudarthrosis aft er Ordered: Adult/Peds fusion or arthro desis 11/29/2017 Screening procedure Speech Therapy Referral Routine Pseudarthrosis after Order ed: fusion or arthro desis 11/29/2017 Screening procedure documented as of this encounter Results FL Video Swallow Study (12/26/2017 1:03 PM MUSIC VIDEO DIRECTOR) Anatomical Region Laterality Modality Neck, Chest Radio Fluoroscopy Specimen (Source) Anatomical Collection Method Collection Time Re ceived Time Location / / Volume Laterality 12/26/2017 1:03 PM MUSIC VIDEO DIRECTOR Narrative 12/26/2017 6:00 PM MUSIC VIDEO DIRECTOR PA VIDEO SWALLOW STUDY 12/26/2017 1:03 PM INDICATION: [...] note might be different from the original. PA VIDEO SWALLOW STUDY 12/26/2017 1:03 PM INDICATION: [...] W Flex And Ext (11/29/2017 9:54 AM MUSIC VIDEO DIRECTOR) Anatomical Region Laterality Modality Spine, C-Spine, Neck Computed Radiograph y Specimen (Source) Anatomical Collection Method Collection Time Re ceived Time Location / / Volume Laterality 11/29/2017 9:54 AM MUSIC VIDEO DIRECTOR Narrative 11/29/2017 10:59 AM MUSIC VIDEO DIRECTOR XR CERVICAL SPINE W FLEX AND EXT [...] status documented in this encounter Care Teams Cassandra Consultant Relationship Specialty Start Date End Date Unassigned, Provider PCP - General 08/05/03 12/13/[address] [place] [address] documented as of this encounter
--- OUTSIDE RECORDS SUMMARY | 2022-08-08 22:55 | XMS_ITS | Encounter Summary ---
:1965 [facility] Address [address], [place] [address] Care Team Providers Name Role Phone Unassigned, Provider Primary Care Provider Unavailable Reason for Visit Procedure/Equipment (Routine) - Incomplete Specialty Diagnoses / Procedures Referred By Contact Refer red To Contact Diagnoses Screening procedure Pseudarthrosis after fusion or arthrodesis Pete Gonzalez MD Procedures XR Cervical Spine W Flex And Ext [address] [place] [address] Referral ID Status Reason Start Date Expiration Date Visits V isits Requested Authorized [id number] Incomplete 10/31/2017 01/30/2019 1 1 Encounter Details Date Type Department Care Team Description 11/29/2017 Imaging [facility]ined[facility] MD Screening procedure Neuro[facility] [address] [facility] Radiology [place], [place] [address] [address] [place] [address] [phone] Social History Tobacco Use Types Packs/Day Years [...] dure Results for this FLEX AND EXT HOUSE SERVANT procedure are i n the results section. documented in this encounter Results XR Cervical Spine W Flex And Ext (11/29/2017 9:54 AM HOUSE SERVANT) Anatomical Region Laterality Modality Spine, C-Spine, Neck Computed Radiograph y Specimen (Source) Anatomical Collection Method Collection Time Re ceived Time Location / / Volume Laterality 11/29/2017 9:54 AM HOUSE SERVANT Narrative 11/29/2017 10:59 AM HOUSE SERVANT XR CERVICAL SPINE W FLEX AND EXT [...] condition documented in this encounter Care Teams Gold Letterer Relationship Specialty Start Date End Date Unassigned, Provider PCP - General 08/05/03 12/13/[address] [place] [address] documented as of this encounter
--- OUTSIDE RECORDS SUMMARY | 2022-08-08 22:55 | XMS_ITS | Encounter Summary ---
:1965 Author Organization [facility] Address [address] [address] Care Team Providers Name Role Phone Jose Holden MD Primary Care Provider [phone] Reason for Visit Reason Comments Consult, New Patient vocal cord analysis Consult/Transfer Care (Routine) - Closed Specialty Diagnoses / Procedures Referred By Contact Refer red To Contact Diagnoses Pseudarthrosis after fusion or arthrodesis Screening procedure Pete Gonzalez MD [address] [place] [address] Referral ID Status Reason Start Date Expiration Date Visits Requ ested Visits Authorized [id number] Closed 11/29/2017 02/28/2019 1 1 Encounter Details Date Type Department Care Team Description 12/26/2017 Office Visit Specialty Center Jose Holden Cer vical vertebral 401 Otolaryngology MD Deyvi fusion (Primary Dx) [address] [place] [address] [place], [place] [phone] Social History Tobacco Use Types Packs/Day Years [...] (166 lb 12.8 oz) 12/26/2017 2:06 PM CLOUD AUTOMATION TESTER Height - - Body Mass Index 32.58 11/29/2017 10:21 AM CLOUD AUTOMATION TESTER documented in this encounter Progress Notes Jose Holden MD - 12/26/2017 3:00 PM CST HPI: Angie Mosquera is a 52 y.o. old female who presents for vocal cord evaluation prior to cervical spine surgery. Patient has significant history of cervical spine surgery having approximate four procedures, three in [place] one here in the [place] area last year. After her last surgery, developed significant hoarseness, loss of voice for approximately three months. Cervical approach with her last surgery was left-hand side. States that she was evaluated by a lining ironer and there were plans for a procedure [...] times per day. 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 Not currently working. [...] software and may contain unintended word substitutions. D AUTOMATION TESTER documented in this encounter Plan of Treatment Not on filedocumented as of this encounter Visit Diagnoses Diagnosis Cervical vertebral fusion - Primary Klippel-Feil syndrome documented in this encounter Care Teams Mixing Plant Operator Relationship Specialty Start Date End Date Jose Holden MD PCP - General Otolaryngology 12/14/17 [facility] [place] [address] documented as of this encounter
--- OUTSIDE RECORDS SUMMARY | 2022-08-08 22:55 | XMS_ITS | Encounter Summary ---
:1965 Author Organization [facility] Address [address] [address] Care Team Providers Name Role Phone Jose Holden MD Primary Care Provider Encounter Details Date Type Department Care Team Description 12/02/2017 Orders Only External to Pete Gonzalez MD [address] [place], [place] [address] (Wo rk) Social History Tobacco Use Types [...] 12/02/2017 12:00 AM Resul ts for this COTTON BUYER procedure are i n the results section. documented in this encounter Results MRI SPINE--SCAN (12/02/2017 12:00 AM COTTON BUYER) Anatomical Region Laterality Modality Other Specimen (Source) Anatomical Location Collection Method / Collectio n Time Received Time / Laterality Volume 12/02/2017 Narrative This result has an attachment that is no t available. Pete Gonzalez MD DUMMY/OTHER/AR documented in this encounter Visit Diagnoses Not on filedocumented in this encounter Care Teams Cnmt Relationship Specialty Start Date End Date Jose Holden MD PCP - General Otolaryngology 12/14/17 [address] [place], [place] [id number] documented as of this encounter
--- OUTSIDE RECORDS SUMMARY | 2022-08-08 22:55 | XMS_ITS | Encounter Summary ---
:1965 Author Organization [facility] Address [address] [place] [address] Care Team Providers Name Role Phone Unassigned, Provider Primary Care Provider Unavailable Encounter Details Date Type Department Care Team Description 10/28/2005 [facility] Curtis Antoine Op Report-Archive [address] StreetBritton García [place] [address] [address] [facility] [phone] [place] [address] Social History Tobacco Use Types Packs/Day Years Used Date Smoking Tobacco: Never Assessed Sex Assigned at Date Recorded Not on file documented as of this encounter Plan of Treatment Not on filedocumented as of this encounter Visit Diagnoses Not on filedocumented in this encounter Care Teams Gynecology Teacher Relationship Specialty Start Date End Date Unassigned, Provider PCP - General 08/05/03 12/13/17 [address] [place] [address] documented as of this encounter
--- OUTSIDE RECORDS SUMMARY | 2022-08-08 22:55 | XMS_ITS | Encounter Summary ---
:1965 Author Organization [facility] Address [address] [place] [address] Care Team Providers Name Role Phone Unassigned, Provider Primary Care Provider Unavailable Encounter Details Date Type Department Care Team Description 12/13/2006 [facility] Curtis Antoine Op Report-Archive [address] StreetBritton García [place] [address] [facility] [phone] [place] [address] Social History Tobacco Use Types Packs/Day Years Used Date Smoking Tobacco: Never Assessed Sex Assigned at Date Recorded Not on file documented as of this encounter Plan of Treatment Not on filedocumented as of this encounter Visit Diagnoses Not on filedocumented in this encounter Care Teams Bakeshop Cleaner Relationship Specialty Start Date End Date Unassigned, Provider PCP - General 08/05/03 12/13/17 [address] [place] [address] documented as of this encounter
--- OUTSIDE RECORDS SUMMARY | 2022-08-08 22:55 | XMS_ITS | Encounter Summary ---
:1965 [facility] Address [address] [place] [address] Care Team Providers Name Role Phone Jose Holden MD Primary Care Provider [phone] Encounter Details Date Type Department Care Team [...] filedocumented in this encounter Care Teams Manager Wealth Management Relationship Specialty Start Date End Date Jose Holden MD PCP - General Otolaryngology 12/14/17 [place] [address] documented as of this encounter
--- OUTSIDE RECORDS SUMMARY | 2022-08-08 22:55 | XMS_ITS | Encounter Summary ---
:1965 Author Organization [facility] Address [address], [place] [address] Care Team Providers Name Role Phone Jose Holden MD Primary Care Provider [phone] Encounter Details Date Type Department Care Team Description 12/02/2017 Orders Only External to Pete Gonzalez MD [address] [place], [place] [address] (Wo rk) Social History Tobacco Use Types [...] 12/02/2017 12:00 AM Resul ts for this TARGET NETWORK ANALYST procedure are i n the results section. documented in this encounter Results MRI SPINE--SCAN (12/02/2017 12:00 AM TARGET NETWORK ANALYST) Anatomical Region Laterality Modality Other Specimen (Source) Anatomical Location Collection Method / Collectio n Time Received Time / Laterality Volume 12/02/2017 Narrative This result has an attachment that is no t available. Pete Gonzalez MD DUMMY/OTHER/AR documented in this encounter Visit Diagnoses Not on filedocumented in this encounter Care Teams Record Press Supervisor Relationship Specialty Start Date End Date Jose Holden MD PCP - General Otolaryngology 12/14/17 [address] [place], [place] [id number] documented as of this encounter
--- OUTSIDE RECORDS SUMMARY | 2022-08-08 22:55 | XMS_ITS | Encounter Summary ---
:1965 Author Organization [facility] Address [address] [place] [address] Care Team Providers Name Role Phone Jose Holden MD Primary Care Provider [phone] Reason for Visit Reason Comments CONSULT POPC-dos 02-20 w/Dr Gonzalez Encounter Details Date Type Department Care Team Description 02/13/2018 Office Visit [facility] Mcghee [facility] Raul Stover MD cervical region Management [address] without myelopathy or [address] [place], [place] radiculopathy ([place] [address] Dx) [phone] Social History Tobacco Use Types Packs/Day Years [...] some medicines that are opioids: ??? Hydrocodone (Hamilton, Vicodin, Lortab) ??? Oxycodone (OxyContin, Percocet) ??? [...] before you use any other medicines, including mziz-tnw-znsomkf medicines. Make sure my care team knows [...] team or apharmacist. You can also visit [employer] or [employer] and search medicine disposalto learn about drug [...] Content Version: 10.9 Custom: HP/PN 6-16 ?? [id number] [employer], [facility]. Stew Covarrubias MD documented in this encounter [...] of Surgery 02/20/2018 C2-T3 anterior fusion. Dr. Gonazlez. Current non-opioid pain medications Tylenol as needed [...] experiences A lot of 'bad' surgeries in [place] Past Medical History: Diagnosis Date ??? Acne ??? Allergy ??? Anxiety disorder (HRC) ??? Arthritis ??? Asthma (HRC) ??? Bipolar 1 disorder (HRC) ??? COPD (chronic obstructive pulmonary disease) (HRC) ??? Depression (HRC) ??? Ear infection ??? Infection of the inner ear, left ? ? Nausea & vomiting ??? Sinusitis No past surgical history on file. CCU NURSE Review: Allergies: Allergies Allergen Reactions ??? Adhesive [...] surgery Recommendations for opioids: If using a FISHING CAPTAIN: No oral opioids Start a FISHING CAPTAIN pump with Dilaudid continuous IV infusion at a basal rate of 0.1 mg/hr with FISHING CAPTAIN boluses of 0.2-0.4 mg every 10 minutes. If not using a FISHING CAPTAIN: Start dilaudid 2-4mg q3h prn (alternatively can [...] myelopathy documented in this encounter Care Teams Field Crop Harvest Worker Relationship Specialty Start Date End Date Jose Holden MD PCP - General Otolaryngology 12/14/17 [facility] [address] [place] [address] documented as of this encounter
--- OUTSIDE RECORDS SUMMARY | 2022-08-08 22:55 | XMS_ITS | Encounter Summary ---
:1965 Author Organization [facility] Address [address] [address] Care Team Providers Name Role Phone Jose Holden MD Primary Care Provider [phone] Reason for Visit Reason Comments QUESTIONS, GENERAL Encounter Details Date Type Department Care Team Description 01/25/2018 Telephone [facility] Pete Gonzalez MD QUESTIONS, GENERAL [facility] [address] [facility] Neurosurgery/Ortho [address] [place], [place] [address] [address] [place] [address] [phone] Social History Tobacco Use Types Packs/Day Years [...] she should receive a call from the operations scheduler in the next 1-3 weeks to discuss her surgery/date. Patient stated understanding and will call with any updates or changes. Chava Simon RN 01/25/2018, 11:04 AM ENING TECH [facility] 01/25/2018 10:56 AM CST Patient calling to speak to RN. Regarding her MRI scan. ENING TECH documented in this encounter Plan of Treatment Not on filedocumented as of this encounter Visit Diagnoses Not on filedocumented in this encounter Care Teams Barrel Marker Relationship Specialty Start Date End Date Jose Holden MD PCP - General Otolaryngology 12/14/[address] [place] [address] documented as of this encounter
--- OUTSIDE RECORDS SUMMARY | 2022-08-08 22:55 | XMS_ITS | Encounter Summary ---
:1965 [facility] Address [address] [place] [address] Care Team Providers Name Role Phone Jose Holden MD Primary Care Provider [phone] Encounter Details Date Type Department Care Team Description 01/17/2018 Telephone [facility] Chava Simon RN Center Neurosurgery/ Ortho Spine [address] [place] [place] [address] Social History Tobacco Use Types [...] in. Chava Simon RN 01/17/2018, 1:26 PM ERS AND ACQUISITIONS ATTORNEY documented in this encounter Plan of Treatment Not on filedocumented as of this encounter Visit Diagnoses Not on filedocumented in this encounter Care Teams Patient Attendant Relationship Specialty Start Date End Date Jose Holden MD PCP - General Otolaryngology 12/14/17 [address] [place] [address] documented as of this encounter
--- OUTSIDE RECORDS SUMMARY | 2022-08-08 22:55 | XMS_ITS | Encounter Summary ---
:1965 Author Organization [facility] Address [address] [place] [address] Care Team Providers Name Role Phone Jose Holden MD Primary Care Provider [phone] Encounter Details Date Type Department Care Team Description 02/13/2018 Orders Only External to HP External, [place] [address] Social History Tobacco Use Types Packs/Day Years [...] on filedocumented in this encounter Care Teams Break Up Worker Relationship Specialty Start Date End Date Jose Holden MD PCP - General Otolaryngology 12/14/17 [place] [address] documented as of this encounter
--- OUTSIDE RECORDS SUMMARY | 2022-08-08 22:55 | XMS_ITS | Encounter Summary ---
:1965 Author [facility] Address [address] [address] Care Team Providers Name Role Phone Jose Holden MD Primary Care Provider [phone] Encounter Details Date Type Department Care Team Description 02/13/2018 Orders Only External to Jose Holden MD [address] [place], [place] [address] (Wo rk) Social History [...] on filedocumented in this encounter Care Teams Etcher Electrolytic Relationship Specialty Start Date End Date Jose Holden MD PCP - General Otolaryngology 12/14/17 [address] [place] [address] documented as of this encounter
--- OUTSIDE RECORDS SUMMARY | 2022-08-08 22:55 | XMS_ITS | Encounter Summary ---
:1965 Author Organization [facility] Address [address] [place] [address] Care Team Providers Name Role Phone Jose Holden MD Primary Care Provider [phone] Reason for Referral (Routine) - Incomplete Specialty [...] (*), IMAGE GUIDANCE ADD ON SPINE (*) [place] [address] Referral ID Status Reason Start Date Expiration Date Visits V isits Requested Authorized [id number] Incomplete 01/25/2018 04/26/2019 1 1 OVISUAL EQUIPMENT OPERATOR Encounter Details Date Type Department Care Team Description 01/25/2018 Prep for [facility] Pete Gonzalez, Cervical s pondylosis with radiculopathy (Primary Dx); Surgery [facility] 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 [address] [place] [address] [phone] Social History Tobacco Use Types Packs/Day Years [...] Cervicalgia documented in this encounter Care Teams Pattern Puncher Relationship Specialty Start Date End Date Jose Holden MD PCP - General Otolaryngology 12/14/17 [facility] [place] [address] documented as of this encounter
--- OUTSIDE RECORDS SUMMARY | 2022-08-08 22:55 | XMS_ITS | Encounter Summary ---
:1965 Author Organization [facility] Address [address] [place] [address] Care Team Providers Name Role Phone Unassigned, Provider Primary Care Provider Unavailable Encounter Details Date Type Department Care Team Description 01/17/2006 [facility] Curtis Antoine Op Report-Archive [address] StreetBritton García [place] [address] [address] [phone] [place] [address] Social History Tobacco Use Types Packs/Day Years Used Date Smoking Tobacco: Never Assessed Sex Assigned at Date Recorded Not on file documented as of this encounter Plan of Treatment Not on filedocumented as of this encounter Visit Diagnoses Not on filedocumented in this encounter Care Teams Adz Worker Relationship Specialty Start Date End Date Unassigned, Provider PCP - General 08/05/03 12/13/17 [address] [place] [address] documented as of this encounter
--- OUTSIDE RECORDS SUMMARY | 2022-08-08 22:55 | XMS_ITS | Encounter Summary ---
:1965 Author Organization [facility] Address [address] [place] [address] Care Team Providers Name Role Phone Unassigned, Provider Primary Care Provider Unavailable Encounter Details Date Type Department Care Team Description 11/04/2005 [facility] Curtis Antoine Op Report-Archive [address] StreetBritton García [place] [address] [facility] [phone] [place] [address] Social History Tobacco Use Types Packs/Day Years Used Date Smoking Tobacco: Never Assessed Sex Assigned at Date Recorded Not on file documented as of this encounter Plan of Treatment Not on filedocumented as of this encounter Visit Diagnoses Not on filedocumented in this encounter Care Teams Manager Of Administration Relationship Specialty Start Date End Date Unassigned, Provider PCP - General 08/05/03 12/13/17 [address] [place] [address] documented as of this encounter
--- OUTSIDE RECORDS SUMMARY | 2022-08-08 22:55 | XMS_ITS | Encounter Summary ---
:1965 Author Organization [facility] Address [address] [place] [address] Care Team Providers Name Role Phone Jose Holden MD Primary Care Provider [phone] Reason for Visit Reason Comments Other Encounter Details Date Type Department Care Team Description 01/17/2018 [facility]phone [facility] Neuroscience Chava Simon RN Other Center Neurosurgery/ Ortho Spine [address] [place] [address]. [place] [address] Social History Tobacco Use Types [...] AM CST XR printed for patient to picket labor union when she comes to clinic. Chava Simon RN 01/18/2018, 8:42 AM RTISING SALES ASSISTANT Michael Cruz - 01/17/2018 3:46 PM CST Patient called in stating she will drop off her CD in clinic tomorrow. However she wants to make sure RADHA Bowie also has a copy of her neck pictures ready for her as well. Patient states she had alreadyspoken to RADHA Bowie about this. Please advise Michael Cruz 01/17/2018, 3:47 PM RTISING SALES ASSISTANT documented in this encounter Plan of Treatment Not on filedocumented as of this encounter Visit Diagnoses Not on filedocumented in this encounter Care Teams Rn Stars Relationship Specialty Start Date End Date Jose Holden MD PCP - General Otolaryngology 12/14/[address] [facility] [place] [address] documented as of this encounter
--- OUTSIDE RECORDS SUMMARY | 2022-08-08 22:55 | XMS_ITS | Encounter Summary ---
:1965 [facility] Address [address], [place] [address] Care Team Providers Name Role Phone Jose Holden MD Primary Care Provider [phone] Reason for Visit Therapies (Routine) - Closed Specialty Diagnoses / Procedures Referred By Contact Refer red To Contact Diagnoses Pseudarthrosis after fusion or arthrodesis Screening procedure Pete Gonzalez MD [address] [place] [address] Referral ID Status Reason Start Date Expiration Date Visits Requ ested Visits Authorized [id number] Closed 11/29/2017 01/28/2018 1 1 Encounter Details Date Type Department Care Team Description 12/26/2017 Office Visit Pete Orona MD [address] [place] [address] Pharyngeal dysphagia [facility] Kaykay Wyman [facility] [address] [place], [place] [id number] (Primary Dx) Speech Therapy [address] [place] [address]. [id number], [place] [id number] Social History Tobacco Use Types Packs/Day Years Used Date Smoking Tobacco: Every Day Cigarettes 0.5 Smokeless Tobacco: Never Alcohol Use Standard Drinks/Week Comments No 0 (1 standard drink = 0.6 oz pure alcoho l) Sex Assigned at Date Recorded Not on file documented as of this encounter Patient Instructions Patient InstructionsKaykay Wyman SLP - 12/26/2017 12:30 PM ADJUNCT HISTORY INSTRUCTOR You had a swallow test today. I [...] sensation of food catching. Kaykay Monroy MA CCC/[facility] Speech-Language Pathologist M-F Office: [phone] NCT HISTORY INSTRUCTOR documented in this encounter Progress Notes Kaykay Wyman, [facility] - 12/26/2017 12:30 PM CST SPEECH LANGUAGE PATHOLOGY MODIFIED BARIUM SWALLOW INITIAL EVALUATION ASSESSMENT Patient is referred for dysphagia evaluation as part of surgical consultation related to past ACDF 1[place] ago in [place] with consideration of revision ACDF surgery in [...] food sticking, especially on textures that are rotary drier feeder (meats, breads, etc). I would anticipate that [...] goals established as no further intervention from [facility] service is warranted at this time. VISIT [...] Total Treatment Time: 45 minutes Kaykay Monroy CCC-[facility] [employer] [facility] [facility] 12/26/2017 documented in this encounter Plan of Treatment Scheduled Referrals Name Type Priority Associated Diagnoses Order S chedule Speech Therapy Referral Routine Pseudarthrosis after fusio n or Ordered: 11/29/2017 arthrodesis Screening procedure documented as of this encounter Visit Diagnoses Diagnosis Pharyngeal dysphagia - Primary Dysphagia, pharyngeal phase documented in this encounter Care Teams Drawing Operator Relationship Specialty Start Date End Date Jose Holden MD PCP - General Otolaryngology 12/14/17 [place] [address] documented as of this encounter
--- OUTSIDE RECORDS SUMMARY | 2022-08-08 22:55 | XMS_ITS | Encounter Summary ---
:1965 Author Organization [facility] Address [address] [place] [address] Care Team Providers Name Role Phone Jose Holden MD Primary Care Provider [phone] Encounter Details Date Type Department Care Team Description 02/14/2018 [facility] Neuroscience Chava Simon, RN [place] Neurosurgery/ Ortho Spine [address] [place] [address] Social History Tobacco Use Types Packs/Day [...] if we have received her preop yet. Seed Sales Manager relayed we have not. Patient was given [phone] to have preop be faxed to us. Patient states she already talked to them and they said they already sent it but she will reach out to them again. Will await a return call from patient/watch out for fax. Michael Cruz 02/14/2018, 10:06 AM Chava Simon RN - 02/14/2018 9:11 AM CDT I still have not received patient's preop from [facility]. Could you please call patient and make sure she has had it faxed to us? Chava Simon RN 02/14/2018, 9:11 AM documented in this encounter Plan of Treatment Not on filedocumented as of this encounter Visit Diagnoses Not on filedocumented in this encounter Care Teams Corporate Representative Relationship Specialty Start Date End Date Jose Holden MD PCP - General Otolaryngology 12/14/17 [place] [address] documented as of this encounter
--- OUTSIDE RECORDS SUMMARY | 2022-08-08 22:55 | XMS_ITS | Encounter Summary ---
:1965 Author Organization [facility] Address [address] [place] [address] Care Team Providers Name Role Phone Jose Holden MD Primary Care Provider [phone] Encounter Details Date Type Department Care Team Description 02/07/2018 [facility] Chava Simon RN [place] Neurosurgery/ Ortho Spine [address] [place] [address]. [place] [address] Social History Tobacco Use Types Packs/Day Years Used Date Smoking Tobacco: Every Day Cigarettes 0.5 30 Smokeless Tobacco: Never Comments: 30 year smoker on and off Alcohol Use Standard Drinks/Week Comments No 0 (1 standard drink = 0.6 oz pure alcoho l) Sex Assigned at Date Recorded Not on file documented as of this encounter Nursing Notes hCava Simon RN - 02/08/2018 3:05 PM CDT Noted. Will watch for preop note. Chava Simon RN 02/08/2018, 3:06 PM Chilo Holden - 02/08/2018 1:44 PM CDT Angie Mosquera returned call and stated that her pre-op is scheduled for 02/13/18 at [facility]. Clinic fax # was given. Patient will have clearance note faxed to clinic. Will post pone message to after the to check and see if pre-op has been received yet. Michael Cruz - 02/08/2018 1:37 PM CDT [facility] Michael Cruz 02/08/2018, 1:37 PM Michael Cruz Porfirio - 02/07/2018 11:27 AM CDT [facility] Michael Monroy Anthony 02/07/2018, 11:27 AM Chava [...] on filedocumented in this encounter Care Teams Clamp Jig Assembler Relationship Specialty Start Date End Date Jose Holden MD PCP - General Otolaryngology 12/14/17 [facility] [place] [address] documented as of this encounter
--- OUTSIDE RECORDS SUMMARY | 2022-08-08 22:55 | XMS_ITS | Encounter Summary ---
:1965 Author Organization [facility] Address [address], [place] [address] Care Team Providers Name Role Phone Jose Holden MD Primary Care Provider [phone] Reason for Visit Reason Comments QUESTIONS, GENERAL Encounter Details Date Type Department Care Team Description 01/19/2018 Telephone [facility] Pete Gonzalez MD QUESTIONS, GENERAL Neuroscience Center [address] [facility] [address] Neurosurgery/Ortho [place], [place] [address] [address] [place] [address] [phone] Social History Tobacco Use Types Packs/Day Years [...] of MRI was received via mail from [facility]. CD given to RN ERCIAL REAL ESTATE AGENT Chava Simon RN - 01/19/2018 12:00 PM CST Patient states she will bring the MRI CD hopefully tomorrow 01/20/2018. Chava Simon RN 01/19/2018, 12:01 PM ERCIAL REAL ESTATE AGENT Gi De La Vega - 01/19/2018 11:47 AM CST Patient calling to speak to RN. Would like to speak to him regarding an MRI CD? Please call her at [phone]. ERCIAL REAL ESTATE AGENT documented in this encounter Plan of Treatment Not on filedocumented as of this encounter Visit Diagnoses Not on filedocumented in this encounter Care Teams Wagon Driver Salesperson Relationship Specialty Start Date End Date Jose Holden MD PCP - General Otolaryngology 12/14/17 [facility] [place] [address] documented as of this encounter
--- OUTSIDE RECORDS SUMMARY | 2022-08-08 22:55 | XMS_ITS | Encounter Summary ---
:1965 Author [facility] Address [address] [place] [address] Care Team Providers Name Role Phone Jose Holden MD Primary Care Provider [phone] Encounter Details Date Type Department Care Team Description 02/07/2018 Prep for Surgery [facility] Sneha Maher, Neuroscience Center Sirisha L, APR N, GRIEVANCE AND APPEALS SPECIALIST Neurosurgery/Ortho S [address] [place] [address] [place] [address] [phone] Social History Tobacco Use Types Packs/Day Years [...] on filedocumented in this encounter Care Teams Web Content Developer Relationship Specialty Start Date End Date Jose Holden MD PCP - General Otolaryngology 12/14/[address] [place] [address] documented as of this encounter
--- OUTSIDE RECORDS SUMMARY | 2022-08-08 22:55 | XMS_ITS | Encounter Summary ---
:1965 Author Organization [facility] Address [address] [place] [address] Care Team Providers Name Role Phone Jose Holden MD Primary Care Provider [phone] Reason for Visit Procedure/Equipment (Routine) - Incomplete Specialty Diagnoses / Procedures Referred By Contact Refer red To Contact Diagnoses Screening procedure Pseudarthrosis after fusion or arthrodesis Pete Gonzalez MD Procedures [place] Video Swallow Study [address] [place] [address] Referral ID Status Reason Start Date Expiration Date Visits V isits Requested Authorized [id number] Incomplete 11/29/2017 02/28/2019 1 1 Encounter Details Date Type Department Care Team Description 12/26/2017 Imaging [facility] MD Screening procedure; Neuroscience Center [address] [place], [place] [address]E Ps eudarthrosis after fusion or arthrodesis Radiology Fluoro S [address] [place] [address] [place] [address] [phone] (Wo rk) Social History Tobacco Use Types [...] Screening pr ocedure Results for this STUDY CONTENT CURATOR Pseudarthrosis after procedu re are in fusion or the results arthrodesis section. documented in this encounter Results [place] Video Swallow Study (12/26/2017 1:03 PM CONTENT CURATOR) Anatomical Region Laterality Modality Neck, Chest Radio Fluoroscopy Specimen (Source) Anatomical Collection Method Collection Time Re ceived Time Location / / Volume Laterality 12/26/2017 1:03 PM CONTENT CURATOR Narrative 12/26/2017 6:00 PM CONTENT CURATOR [place] VIDEO SWALLOW STUDY 12/26/2017 1:03 PM [...] for additional details. Pete Gonzalez MD RAD MO documented in this encounter Visit Diagnoses Diagnosis Screening procedure Screening for unspecified condition Pseudarthrosis after fusion or arthrodes is Arthrodesis status documented in this encounter Administered Medications Inactive Administered Medications - up to 3 most recent administrations Medication Order MAR Action Action Date Dose Rate Site barium sulfate (EZ PAQUE) Given 12/26/2017 1:06 PM CONTENT CURATOR 200 mL suspension 200 mL 200 mL, Oral, ONCE (NON-SCHEDULED), Starting on Tue12/26/17 at 1305, For 1 dose barium sulfate (EZ-DISK) tablet 700 mg Given 12/26/2017 1:06 PM CONTENT CURATOR 700 mg 700 mg, Oral, ONCE (NON-SCHEDULED), Starting on Tue12/26/17 at 1305, Until Tue12/26/17 at 1306, For 1 dose barium sulfate (EZ-PASTE) oral cream 9 g Given 12/26/2017 1:06 PM CONTENT CURATOR 9 g 9 g (15 mL), Oral, ONCE (NON-SCHEDULED), Starting on Tue12/26/17 at 1305, For 1 dose barium sulfate (VARIBAR, TAGITOL V) 40 % Given 12/26/2017 1:06 P M CONTENT CURATOR 240 mL suspension 240 mL 240 mL, Oral, ONCE (NON-SCHEDULED), Starting on Tue12/26/17 at 1305, Until Tue02/20/18 at 1710, For 3 doses documented in this encounter Care Teams Oil Derrick Operator Relationship Specialty Start Date End Date Jose Holden MD PCP - General Otolaryngology 12/14/17 [facility] [place] [address] documented as of this encounter
--- OUTSIDE RECORDS SUMMARY | 2022-08-08 22:55 | XMS_ITS | Encounter Summary ---
:1965 Author Organization [facility] Address [address] [place] [address] Care Team Providers Name Role Phone Jose Holden MD Primary Care Provider [phone] Reason for Referral Consult/Transfer Care (Routine) - Closed Specialty Diagnoses / Procedures Referred By Contact Refer red To Contact Neurosurgery Diagnoses Pseudarthrosis after fusion or arthrodesis Pete Gonzalez MD [facility] Neurosurgery/Ortho [address] [place] [address] [place] [address] Phone: Fax: Referral ID Status Reason Start Date Expiration Date Visits Requ ested Visits Authorized [id number] Closed 01/17/2018 04/18/2019 1 1 Scheduling Instructions Your provider has recommended an appoint ment for a pre-operative pain consult with [facility]?? You may call [phone] to schedule your appointment.?? If you prefer, a mirela billy will contact you within the next 3 business days to assist you in setting u p this appointment. ORA PRODUCT CONSULTANT Reason for Visit Reason Comments Revisit Encounter Details Date Type Department Care Team Description 01/17/2018 Office Visit [facility], Pseudarthr osis after Neuroscience Center MD fusion or arthrodesis Neurosurgery/Ortho [address] (Primar y Dx) [address] [place] [address] [place] [address] [phone] Social History Tobacco Use Types Packs/Day Years [...] Comments Blood Pressure 137/83 01/17/2018 11:51 AM SEPHORA PRODUCT CONSULTANT Pulse 83 01/17/2018 11:51 AM SEPHORA PRODUCT CONSULTANT Temperature 36.5 ??C (97.7 ??F) 01/17/2018 11:51 AM SEPHORA PRODUCT CONSULTANT Respiratory Rate 16 01/17/2018 11:51 AM SEPHORA PRODUCT CONSULTANT Oxygen Saturation - - Inhaled Oxygen Concentration [...] business days) Please call Ana Rosa at [phone] if you have not heard from her. [...] prior to surgery. Please fax preops to [phone] Nothing to eat or drink from midnight [...] and Apply plenty of Hibiclens*, a special blind cleaner, to a clean, wet washcloth. Wash [...] 8am-5pm, please call the Neurosurgery Clinic at [phone] if youhave any concerns related to your surgery before going to the Emergency Room, your family physician,or an Urgent Care. After hours call the [facility] at [phone]. PAIN MEDICATION POLICY The Department of Neurosurgery [...] duringweekend hours. Day of surgery, arrive at [facility] on 3rd floor 2 hours prior to surgery. The Same Day Surgery Nurses will call you 1-3 days prior to surgery to inform you what time you should arrive for your surgery. If they do not reach you, please call if your surgery is at [facility]. Review your surgery packet. Contact the Neurosurgery Center [phone] if you have any questions or concerns ORA PRODUCT CONSULTANT documented in this encounter Progress Notes Pete [...] is prone to typos and grammatical errors. ORA PRODUCT CONSULTANT documented in this encounter Plan of Treatment Scheduled Referrals Name Type Priority Associated Diagnoses Order S chedule PRE-OP PAIN CONSULT Referral Routine Pseudarthrosis after fusion Ordered: 01/17/2018 - ADULT or arthrodesis documented as of this encounter Procedures Procedure Name Priority Date/Time Associated Diagnosis Comme nts MRSA/MSSA PRE-OP Routine 01/17/2018 1:48 PM Pseudarthrosis aft er Results for this CULTURE SEPHORA PRODUCT CONSULTANT fusion or arthrodesis proced ure are in the results section. documented in this encounter Results MRSA/MSSA Pre-Op Culture (01/17/2018 1:48 PM SEPHORA PRODUCT CONSULTANT) Component Value Ref Test Analysis Performed At [facility] Range Method Time Signature Specimen Nose Swab [facility] Description LABORATORIES Special Unspecified [facility] Requests LABORATORIES Culture No Staphylococcus [facility] aureus Isolated LABORATORIES Report Status 01/18/2018 [facility] Final LABORATORIES Specimen Anatomical Collection Method Collection Time Receive d Time (Source) Location / / Volume Laterality Nasal swab taken NASAL STRUCTURE / 01/17/2018 1:48 PM 01/17/2018 1:49 (situation) Unknown SEPHORA PRODUCT CONSULTANT PM SEPHORA PRODUCT CONSULTANT Pete Gonzalez MD LAB_1 Performing Organization Address City/State/ZIP Code Phon e Number [facility]IES [phone] documented in this encounter Visit Diagnoses Diagnosis Pseudarthrosis after fusion or arthrodes is - Primary Arthrodesis status documented in this encounter Care Teams Mower Sharpener Relationship Specialty Start Date End Date Jose Holden MD PCP - General Otolaryngology 12/14/17 [address] [place] [address] documented as of this encounter
--- OUTSIDE RECORDS SUMMARY | 2022-08-08 22:56 | XMS_ITS | Encounter Summary ---
:1965 Author Organization [facility] Address [address] [place] [address] Care Team Providers Name Role Phone Elsewhere, Pcp Primary Care Provider Unavailable Reason for Visit Reason Comments Pregabalin prescription Encounter Details Date Type Department Care Team Description 06/22/2022 Clinical Communication RST ANDREW Pollard, Pregabalin [address] [facility] Lilian Hughes prescription [place], [place] [address] [facility] [address] [place] [address] Social History Tobacco Use Types Packs/Day Years [...] you attend hindu or Patient refused 2021 mormon services? Do [...] Maritza Carrillo - 06/22/2022 12:18 PM CDT [facility] called. The patient had a prescription for Pregabalin sent to one of the [place] pharmacies on 06/17/22 and she never picked it up. [facility] would like the prescription sent to them since they provide the prescriptions to the patient. Please phone or send a new prescription for Pregabalin 300 mg to [facility] in [place]. Please do as soon as able, the patient is out of this medication. Thank you, Maritza [phone] documented in this encounter Plan of Treatment Not on filedocumented as of this encounter Visit Diagnoses Not on filedocumented in this encounter Additional Health Concerns Assessment Noted Time PHQ-9 Depression Total Score: 16 02/11/2021 12:00 AM C DT documented as of this encounter Care Teams Groutman Relationship Specialty Start Date End Date Elsewhere, Pcp PCP - General Family Medicine 12/25/21 documented as of this encounter
--- OUTSIDE RECORDS SUMMARY | 2022-08-08 22:56 | XMS_ITS | Encounter Summary ---
:1965 Author Organization [facility] Address [address] [place] [address] Care Team Providers Name Role Phone Elsewhere, Pcp Primary Care Provider Unavailable Reason for Referral Physical Therapy (Routine) - Authorized Specialty Diagnoses / Procedures Referred By Contact Refer red To Contact Diagnoses Aftercare Total Shoulder Arthroplasty Flavia Broderick M.D. [facility] Procedures PT or OT eval and treat (first available) Referral ID Status Reason Start Date Expiration Date Visits V isits Requested Authorized [id number] Authorized 06/23/2022 06/23/2023 99 99 utpatient (Routine) - Closed Specialty Diagnoses / Procedures Referred By Contact Refer red To Contact Diagnoses Aftercare Total Shoulder Arthroplasty Flavia Broderick M.D. [facility] Procedures DX Shoulder Left 2+ Views Referral ID Status Reason Start Date Expiration Date Visits Requ ested Visits Authorized [id number] Closed 06/23/2022 06/23/2023 1 1 Reason for Visit Reason Comments Post-op Encounter Details Date Type Department Care Team Description 06/23/2022 Clinical Communication Department of [facility] Orth[facility] Surgery in [place], [place] [address] [facility] [address] [place] [phone] Social History Tobacco Use Types Packs/Day Years [...] you attend jew or Patient refused 2021 druze services? Do [...] documented as of this encounter Care Teams Blister Pack Operator Relationship Specialty Start Date End Date Elsewhere, Pcp PCP - General Family Medicine 12/25/21 documented as of this encounter
--- OUTSIDE RECORDS SUMMARY | 2022-08-08 22:56 | XMS_ITS | Encounter Summary ---
:1965 Author Organization [facility] Address [address] [place] [id number] Care Team Providers Name Role Phone Elsewhere, Pcp Primary Care Provider Unavailable Reason for Visit Reason Comments Pre-visit Intake Encounter Details Date Type Department Care Team Description 06/25/2022 Clinical Communication Visit Review in Pr e-visit Intake [place], [place] [address] [place], [place] [id number] Social History Tobacco Use Types Packs/Day Years [...] you attend buddhist or Patient refused 2021 druze services? Do [...] documented as of this encounter Care Teams Industrial Engineering Director Relationship Specialty Start Date End Date Elsewhere, Pcp PCP - General Family Medicine 12/25/21 documented as of this encounter
--- OUTSIDE RECORDS SUMMARY | 2022-08-08 22:56 | XMS_ITS | Clinical Summary ---
:1965 Author Organization [facility] Address [address] [place] [address] Care Team Providers Name Role Phone Elsewhere, Pcp Primary Care Provider Unavailable Source Comments Patient records contain information from all sites at [facility]. For routine questions regarding patient records, call [phone] during business hours, M-F 8:00 AM - 5:00 PM Central Time. Record requests for emergency care only can be directed to [phone] at any time.[facility] Allergies Active Allergy Reactions Severity Noted [...] 10/13/2017 Other lashaun ction(s): (see comments) Contact Omao titis Gabapentin Other (see comments) Low 05/12/2017 [...] mg oral Daily, Other, Reported on 06/21/2022 okpfeuuikw-vegeaxirtunro-dpaa Take 1 tablet by 0 12/2020 Active [...] by 0 01/28 Active mouth at bedtime. multivit-min/iron/folic/xsn519 Take 1 tablet by 0 Active (HAIR, [...] Added automatically from request for lonnie li [id number] Nicotine Dependence Unspecified 11/29/2017 Other Chcf Current Drug Therapy 12/30/2016 Opioid Moderate Or [...] 06/17/2022 Anesthesia Event Radiology Sapphire Verma, NIKKY, KEYMODULE ASSEMBLY SUPERVISOR, DNAP Brian Hunt M.D. 06/17/2022 Orders Only [...] (ICD-10-CM)] 06/15/2022 Clinical Neurology Robert Diehl Followup ([facility] Communication Lilian Celaya Patient/) 06/10/2022 Clinical [...] Ex am 05/13/2022 Virtual Visit Social [facility], Pain Shoulder Left; Jenna Porter M.D. Preoperative Exam Jose Bernstein L.I.C.S.W., M.S.W. 05/12/2022 Clinical Orthopedic Surgery Cyrus Polk Pre-vis it Intake Communication Lilian Souza 05/11/2022 Clinical Orthopedic Surgery Cyrus Polk Communication Lilian Souza from Last 3 Months Immunizations Name Administration [...] you attend sikhism or Patient refused 2021 restorationism services? Do [...] 09/11/2021, 09/13/2020 Medical Devices Implanted Type Area Pensionholder Information Clerk Device Shelf Model / Identifier Expiration Serial / Date Lot Cmnt Bn Smp 20gm - [id number] Bone Cement Left: [place] [id number] / Implanted: Qty: 1 on 12/30/2021 by Cyrus Panchal M.D. at [facility] Shoulder / Grft Dbm Grf Obl 15 - [id number] - [id number] Bone or Tis lebron Left: Medtronic 10/14/2023 [id number] / Implanted: Qty: 1 on 02/26/2022 at [facility] Shoulder [id number] / 4mm Amplatz Micro Plug Embolization Brain Amplatzer [id number] / Implanted: Qty: 1 on 02/16/2021 by Mustapha Posey M.D. at [facility] Coil Field Marketing Associate / Dayo [id number] Description: MRI Conditional at 1.5T or 3T Max Whole Body YUSEF of 4 W/kg. AAC 2020 [email or web address] [email or web address]/ Hardware E.G. Hardware e.g. Neck Pins/Screws/Rods pins/screws/rods Scrw Cmp Pthrd 6.5x25 - [id number] Hardware e.g. Left: Trevor B iomet 12/29 [id number] / Implanted: Qty: 1 on 02/26/2022 at [facility] pins/screws/rods Shoulder 05/17 [id number] Knee Implant Knee Implant Bilateral: Knee Plg Ocl Amp Avpii 6 - [id number] Mesh or Patch Pedersen 07/31 [id number] / Implanted: Qty: 1 on 02/16/2021 by Mustapha Posey M.D. at [facility] [id number] Shoulder Implant Shoulder Implant Left: Shoulder Bsplt Glnd Cmp Rv Aug Sm - [id number] Shoulder Implant Left: Trevor Biomet 01/26 [id number] / Implanted: Qty: 1 on 02/26/2022 at [facility] Shoulder [id number] Hum Stm Cmp Rvrs Prim Mini 9 - [id number] Shoulder Implant Le ft: Trevor Biomet 08/28 [id number] / Implanted: Qty: 1 on 05/18/2022 by Cyrus Panchal M.D. at [facility] Shoulder 02/14 [id number] Medtronic Spinal Cord Stimulator Spinal Cord Back Medtronic [id number] / Implanted: 06/30/2020 (Quantity not on file) Stimulator [id number] / [id number] Description: Medtronic Intelllis Spinal Cord Stimulator model #[id number]. As of 06/17/22, the stimulator IPG is [...] with the patient during future MRI appointments. TOMI 06/17/22 PT got new spinal cord stimulator bailey d . Patient states she fell and the old stimulator broke, so she had the new Medtronic device put in. 1.5T Normal/ Normal, patient has to have a remote and device needs to be put in MRI Mode prior to MRI as of 03-19-21 SDN Explanted Type Area Pensionholder Information Clerk Device Shelf Model / Identifier Expiration Serial / Date Lot Hum Hd Vrs Dl [id number] - [id number] Shoulder Left: Trevor Biom et 05/29/2031 [id number] / Implanted: Qty: 1 on 12/30/2021 by Cyrus Panchal M.D. at [facility] Implant Shoulder / Explanted: Qty: 1 on 02/26/2022 at [facility] [id number] [facility] Rvrs Prim Std 10 - [id number] Shoulder Left: Zi mmer Biomet 12/16/2029 [id number] / Implanted: Qty: 1 on 02/26/2022 at [facility] Implant Shoulder / Explanted: Qty: 1 on 05/18/2022 at [facility] [id number] Spinal Cord Stimulator Spinal Cord Pelvis Nevro Explanted: 03/10/2020 (Quantity not on file) Stimulator Description: Device was explanted on 02-26 per Brendan Support. HEMALATHA 03-19-21 Procedures Procedure Name Priority [...] are i n the results section. MI US GUIDE PLC NDL Routine 05/18/2022 11:24 AM R esults for this CDT procedure are i n the results section. MI INJ ANES BRACHIAL Routine 05/18/2022 11:24 AM [...] are in PCR, VARIES the results section. from Last 3 Months [...] cervical and upper thoracic spinal fusion. Flavia Broderick M.D. IMG DIAGNOSTIC IMAGING PROCE DURES (ABNORMAL) CBC without Differential (06/18/2022 7:50 AM CDT)Only the most recent of3 resultswithin the time period is included. [facility] gist Method Time Signature Hemoglobin 11.2 (L) [...] City/State/ZIP Code Phon e Number [facility] - [address] [place], [place] [address] [facility] [place] [address] [facility] [address] Basic Metabolic Panel (06/18/2022 7:50 AM CDT)Only [...] 06/18/2022 DTL Black/ mL/min/BSA 8:56 AM CDT Hong Konger Comment: ----ADDITIONAL INFORMATION---- Estimated GFR calculated using [...] City/State/ZIP Code Phon e Number [facility] - [address] [place], [place] [address] [facility] [place] [address] [facility] [address] 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 The naknek intraocular lenses are absent . 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 The naknek intraocular lenses are absent . Mild mucosal [...] Tony APRN, C.N.P. 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 The naknek intraocular lenses are absent . 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 The naknek intraocular lenses are absent . 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 The naknek intraocular lenses are absent . 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 The naknek intraocular lenses are absent . Mild mucosal [...] at L1-2 through L3-4. Scooter Tony APRN CBrittonNCristiana IMG MRI PROCEDURES LDA ANE ENDOTRACHEAL AIRWAY (06/17/2022 2:59 PM CDT) Narrative Sapphire Verma APRN, CRNA, DNAP - 06/17/20 22 2:59 PM CDT Sapphire Verma APRN, CRNA, [...] ETT location: oral VL device: glide scope Ramona scope blade size: 3 Adult tube size: [...] ?? Airway event: no complications Sapphire Verma DRYWALL METAL STUD WORKER, KEYMODULE ASSEMBLY SUPERVISOR, DNAP ANESTHESIA ORDERABLES Osmolality, Urine (06/16/2022 9:32 AM CDT) P athologist Signature Osmolality, U 745 150 - 1150 06/16/2022 DTL mOsm/kg 11:17 AM CDT Specimen Anatomical Collection Method Collection Time Receive d Time (Source) Location / / Volume Laterality Urine 06/16/2022 9:32 AM 2 CDT 10:39 AM CDT Maira Haynes M.D. LAB URINE ORDERABLES Performing Organization Address City/State/ZIP Code Phon e Number [facility] - [address] [place] [address] [facility] [place] [address] [facility] [address] [facility] (ABNORMAL) Dipstick, Urine (06/16/2022 9:32 AM CDT) [...] M.D. LAB URINE ORDERABLES Performing Organization Address City/[facility]/ZIP Code Phon e Number [facility] - [address] [address] [place] [address] pH, Random, Urine (06/16/2022 9:32 AM CDT) P athologist Signature pH, Random, U 5.0 4.5 - 8.0 06/16/2022 DTL 11:17 AM CDT Specimen Anatomical Collection Method Collection Time Receive d Time (Source) Location / / Volume Laterality Urine 06/16/2022 9:32 AM 2 CDT 10:39 AM CDT Maira Haynes M.D. LAB URINE ORDERABLES Performing Organization Address City/[facility]/ZIP Code Phon e Number [facility] - [address] (ABNORMAL) Microscopic Manual (06/16/2022 9:32 AM [...] M.D. LAB URINE ORDERABLES Performing Organization Address City/[facility]/ZIP Code Phon e Number [facility] - [address] [address] [place] [address] (ABNORMAL) Urinalysis with Microscopic: Urine, Catheter [...] M.D. LAB URINE ORDERABLES Performing Organization Address City/[facility]/ZIP [facility] Phon e Number [address] Hemoglobin A1c (06/16/2022 7:31 AM CDT) P athologist Signature Hemoglobin A1c, 4.9 4.0 - 5.6 06/16/2022 DTL B % 8:13 AM CDT Specimen Anatomical Collection Method Collection Time Receive d Time (Source) Location / / Volume Laterality Blood (Blood, 06/16/2022 7:31 AM 06/16/20 22 7:51 Venous) CDT AM CDT Kiran Melton M.D. LAB BLOOD ADD-ON Performing Organization Address City/[facility] Phon e Number [address] [place] [address] Vitamin B12 Assay (06/16/2022 7:31 AM CDT) [facility] Vitamin B12 201 180 - 914 06/16/2022 [...] City/State/ZIP Code Phon e Number [facility] - [address] [place] [address] [facility] [place] [address] [facility] [address] [facility] (ABNORMAL) Comprehensive Metabolic Panel (06/16/2022 7:31 AM CDT) [facility] Potassium, S 4.1 3.6 - 5.2 06/16/2022 [...] 06/16/2022 DTL Black/ mL/min/BSA 8:22 AM CDT [place]er Comment: ----ADDITIONAL INFORMATION---- Estimated GFR calculated using [...] City/State/ZIP Code Phon e Number [facility] - [address] [place] [address] [facility] [place] [address] [facility] [address] [facility] Critical Care (06/15/2022 8:47 PM CDT) Narrative Scooter Tony APRN, C.N.P. - 06/15 8:47 PM CDT Scooter Tony APRN, C.N.P. ? 06/15/2022 ??8:47 PM Critical Care [...] life-threatening deterioration of the fo llowing conditions: FRUIT THINNER failure or compromise Critical care was time spent personally by me on the following activities: ordering and review of radiographic stud ies, ordering and review of laboratory studies, discussions with [facility] provider, discussions with consultants, examination of patient, rev iew of old charts and re-evaluation of patient's condition Scooter Tony APRN, C.N.P. PROCEDURE/MINOR SURGICA L ORDERABLES SARS Coronavirus 2, PCR Rapid, V Symptomatic (06/15/2022 7:51 PM CDT) [facility] Method Time Signature SARS CoV-2, Undetected Undetected 06/15/2022 [facility] PCR, Rapid, V 8:23 PM CDT Comment: ----ADDITIONAL INFORMATION---- This RT-PCR test was performed using the Tita SARS-CoV-2 and Influenza A/B Reagent assay from [employer], which has received Emergency Use Authori zation(EUA) by the U.S. Food and Drug Administration . Fact sheets for this Emergency Use Autho rization (EUA) assay can be found at the following link s: For Healthcare Providers: https://www.fda.gov/media/022268/downloa d For Patients: https://www.fda.gov/media/013226/downloa d SARS Coronavirus 2, Source, Rapid Swab, Nasopharynx 06/15/2022 7:58 PM CDT [facility] Specimen Anatomical Collection Method Collection Time Receive d Time (Source) Location / / Volume Laterality Varies 06/15/2022 7:51 PM 7:58 (Nasopharynx) CDT PM CDT Scooter Tony APRN, C.N.P. LAB MICROBIOLOGY - GENE RAL ORDERABLES Performing Organization Address City/State/ZIP Code Phon e Number [facility] - [address] [place], [place] [address] [place] [address] [facility] [address] Head Neck Angiogram with IV Contrast (06/15/2022 4:49 PM CDT) Anatomical Region Laterality Modality Head and Neck, Neuroradiology RST LOS, N/A C omputed Tomography, Computed Neuroradiology ARZ LOS, Neuroradiology T omography FLA [facility] Specimen (Source) Anatomical Collection Method Collection Time [...] endplate T8. Abdominal hernia r epair mesh. Araceli Ochoa APRNNBrittonPBritton IMG DIAGNOSTIC IMAGING PROCEDURES Troponin T, 2H/6H, 5th Gen (06/15/2022 2:48 PM CDT) [facility] gist Method Time Signature Troponin T, 2 <6 [...] 3:21 Venous) CDT PM CDT Narrative [facility] - 06/15/2022 3:54 PM CDT Specimen Information: Specimen ID: [id number] Specimen Type: Blood Specimen Collection Start Date: 06/15/20 ??2:48 PM Specimen Received Date: 06/15/2022 ??3:2 1 PM Specimen ID: [id number] Specimen Type: Blood Specimen Collection Start Date: 06/15/20 ??3:53 PM Specimen Received Date: 06/15/2022 ??3:5 3 PM Demarcus Ernst M.D. LAB BLOOD TROPONIN Performing Organization Address City/State/ZIP Code Phon e Number [place] [address] [place], [place] [address] [place] [address] [facility] [address] [place] [address] DX Hip And Pelvis Left 2-3 Views [...] hip chondrocalcinosis. No fracture. Scooter Tony APRN C.N.P. IMG DIAGNOSTIC IMAGING PROCEDURES ECG 12 Lead (06/15/2022 1:35 PM CDT) P athologist Signature Ventricular Rate 58 BPM MUSE ECG/Min MI Interval 154 ms MUSE QRSD Interval 102 ms MUSE QT Interval 442 ms MUSE QTC Interval 433 ms MUSE P [place] 48 degrees MUSE R [place] -1 degrees MUSE T Wave [place] 38 degrees MUSE Specimen Anatomical Collection Method [...] Ernst M.D. ECG ORDERABLES Performing Organization Address City/[facility]/ZIP Code Phon e Number MUSE MUSE NA Troponin T, Baseline, 5th gen (06/15/2022 12:37 PM CDT) athologist Signature Troponin T, <6 <=10 ng/L 06/15/2022 [facility] Baseline, 5th 1:37 PM CDT gen Specimen Anatomical Collection Method Collection Time Receive d Time (Source) Location / / Volume Laterality Blood (Blood, 06/15/2022 12:37 06/15/2022 1:03 Venous) PM CDT PM CDT Demarcus Ernst M.D. LAB BLOOD TROPONIN Performing Organization Address City/[facility] Phon e Number [facility] - [address] [place], [place] [address] [place] [address] [facility] [address] [facility] (ABNORMAL) Hepatic Function Panel (06/15/2022 12:37 PM [...] City/State/ZIP Code Phon e Number [facility] - [address] [place], [place] [address] [facility] [place] [address] [facility] [address] (ABNORMAL) CBC with Differential, Blood (06/15/2022 12:36 PM CDT)Only the most recent of4 resultswithin the time period is included. [facility] Method Time Signature Hemoglobin 10.4 (L) 11.6 [...] M.D. LAB BLOOD ADD-ON Performing Organization Address [facility] Phon e Number [facility] - [id number] [place] [id number] [place] [address] Prothrombin Time (PT) (06/15/2022 12:34 PM CDT) P athologist Signature Prothrombin 10.2 9.4 - 12.5 06/15/2022 [facility] Time, P sec 1:10 PM CDT INR 0.9 0.9 - 1.1 06/15/2022 [facility] 1:10 PM CDT Comment: ----ADDITIONAL INFORMATION---- Standard intensity warfarin therapeutic range: 2.0 to 3.0 ?? High intensity warfarin therapeutic rang e: 2.5 to 3.5 Specimen Anatomical Collection Method Collection Time Receive d Time (Source) Location / / Volume Laterality Blood (Blood, 06/15/2022 12:34 06/15/2022 1:03 Venous) PM CDT PM CDT Demarcus Ernst M.D. LAB BLOOD ADD-ON Performing Organization Address City/[facility] Phon e Number [facility] - [address] [place], [place] [address] [place] [address] Interpretation of Outside CT Spine (06/15/2022 [...] instrumented fusion hardwa re and osteopenia. Demarcus Ernst M.D. [facility] CT PROCEDURES CT HEAD/BRAIN WO CON-Outside CT [...] System IMG CT PROCEDURES Performing Organization Address City/State/ZIP Code Phon [...] defined workflow. ?? Provider Not In System [facility] DIAGNOSTIC IMAGING [facility] Performing Organization Address City/State/ZIP Code Phon e [...] Negative for postoperative purposes. Jenna Zaldivar M.D. [facility] DIAGNOSTIC IMAGING [facility] Surgical Pathology, Frozen Lab (05/18/2022 1:04 PM CDT) Component Value Ref Test Analysis Performed At [facility] Range Method Time Signature 05/20/2022 METH 11:46 [...] City/State/ZIP Code Phon e Number [facility] - [facility] [place] [address] [place], [place] [address] [facility] [place] [address] [facility] [address] Bacteria Cult, Aerobe / Anaerobe+Susc (05/18/2022 1:03 PM CDT)Only the most recent of3 resultswithin the time period is included. [facility] gist Method Time Signature Bacteria Cult, No growth 06/01/2022 DTL Aerobe/Anaerob after 14 6:02 PM CDT e+Susc days of incubation. Specimen Anatomical Collection Method Collection Time Receive d Time (Source) Location / / Volume Laterality Shoulder, Left 05/18/2022 1:03 PM 022 5:21 CDT PM CDT Comment: Specimen Source Site: Tissue #1 Narrative [facility] - [facility] - 06/01/2022 6:02 PM CDT Bacterial Culture: Placed in Bactec aero bic and Bactec anaerobic bottles Cyrus Polk M.D. LAB MICROBIOLOGY - GENERAL O RDERABLES Performing Organization Address City/State/ZIP Code Phon e Number [facility] - [address] [place] [address] [facility] [place] [address] [facility] [address] LDA ANE ENDOTRACHEAL AIRWAY [...] ETT location: oral VL device: glide scope Ramona scope blade size: 3 Adult tube size: [...] ?? Airway event: no complications Kaushik Carlos, Ch.B. ANESTHESIA ORDERABLES MI INJ ANES BRACHIAL PLEX, MI US GUIDE PLC NDL, MC ANE NERVE [...] Non-Radiology Image-Anesthesiology Image Exam (05/18/2022 9:35 AM [facility]) Specimen (Source) Anatomical Collection Method Collection Time Re ceived Time Location / / Volume Laterality 05/18/2022 10:22 AM [facility] Narrative IIMS - 05/18/2022 9:35 AM [facility] This order has been created and auto-finalized to support the import of images acquired without order. The clini france documentation to support these images can be found on the encounter daniel t produced images. Provider Not In System IMG NON RAD IMAGING PROCEDUR ES Performing Organization Address City/State/ZIP Code Phon e Number IIMS IIMS NA (ABNORMAL) [facility] Result (05/17/2022 10:50 AM [...] Reviewed by: Priti 05/17/2022 1:04 PM CDT [facility] Specimen Anatomical Collection Method Collection Time Receive d Time (Source) Location / / Volume Laterality Blood 05/17/2022 10:50 05/17/2022 AM CDT 11:30 AM CDT Alfredo Kamara LAB BLOOD ADD-ON Performing Organization Address City/State/ZIP Code Phon e Number [facility] - [facility] [place] [address] [place], [place] [address] [place] [address] [facility] [address] Type and Screen (with reflex Antibody ID) (05/17/2022 10:50 AM CDT) Patholo gist Method Time Signature ABORh A Neg [...] City/State/ZIP Code Phon e Number [facility] - [address] [place] [address] [facility] [place] [address] [facility] [address] [facility] SARS Coronavirus 2, Molecular Detection, PCR, Varies Asymptomatic (05/17/2022 10:26 AM CDT) [facility] gist Method Time Signature COVID-19, Swab, 05/17/2022 DTL [...] ----ADDITIONAL INFORMATION---- This RT-PCR test using the Dotspin SARS-Co V-2 Assay ( [employer] performed on the Dotspin Two Module System has received Emergency Use Authorization (EUA) by the U.S. Food and Drug Administration, and is modified from the clinical professor's instructions with a bridging study. Performance characteristics were verifie d by [facility] in a manner consistent with CLIA requirements. Visit the CDC website: https://www.cdc.g ov/coronavirus/ for the most recent guidelines on [facility] virus testing. Fact Sheet for Healthcare Providers: https://www.fda.gov/media/428323/downloa d Fact Sheet for Patients: https://www.fda.gov/media/818269/downloa d Specimen Anatomical Collection Method Collection Time Receive d Time (Source) Location / / Volume Laterality Varies 05/17/2022 10:26 05/17/2022 (Nasopharynx) AM CDT 10:52 AM CDT Alfredo Kamara LAB MICROBIOLOGY - GENERAL O RDERABLES Performing Organization Address City/State/ZIP Code Phon e Number [facility] - [address] [place], [place] [address] [facility] [place] [address] [facility] [address] from Last 3 Months Insurance Payer Benefit Plan / Subscriber ID Effective Phone Address T ype Group Dates MEDICARE MEDICARE A AND B [id number] 2012-Pre [address] [place] [address] MEDICA MEDICA [id number] 2018-Pres [phone] Medica id HMO ACCESSABILITY ent [phone] [place] [address] Advance Directives For more information, please contact: [phone] Latest Code Status on File Code Status [...] 8:26 PM Full Code: Discussed Care Teams Calender Supervisor Relationship Specialty Start Date End Date Elsewhere, Pcp PCP - General Family Medicine 12/25/21
--- OUTSIDE RECORDS SUMMARY | 2022-08-08 22:56 | XMS_ITS | Encounter Summary ---
:1965 Author Organization [facility] Address [address] [place] [address] Care Team Providers Name Role Phone Elsewhere, Pcp Primary Care Provider Unavailable Reason for Referral Outpatient (Routine) - Closed Specialty Diagnoses / Procedures Referred By Contact Refer red To Contact Diagnoses Aftercare Total Shoulder Arthroplasty Flavia Broderick M.D. [facility] Procedures DX Shoulder Left 2+ Views Referral ID Status Reason Start Date Expiration Date Visits Requ ested Visits Authorized [id number] Closed 06/23/2022 06/23/2023 1 1 Reason for Visit Outpatient (Routine) - Closed Specialty Diagnoses / Procedures Referred By Contact Refer red To Contact Diagnoses Aftercare Total Shoulder Arthroplasty Flavia Broderick M.D. [facility] Procedures DX Shoulder Left 2+ Views Referral ID Status Reason Start Date Expiration Date Visits Requ ested Visits Authorized [id number] Closed 06/23/2022 06/23/2023 1 1 Encounter Details Date Type Department Care Team Description 06/29/2022 Hospital Encounter Department of Flavia Broderick re Total Radiology, Severiano Porter M.D. Shoulder Arthroplasty Building, in [place], [place] [address] [place] [address] Social History Tobacco Use Types Packs/Day Years [...] you attend bahai or Patient refused 2021 rastafarian services? Do [...] documented as of this encounter Care Teams Semiconductor Wafer Inspector Relationship Specialty Start Date End Date Elsewhere, Pcp PCP - General Family Medicine 12/25/21 documented as of this encounter
--- OUTSIDE RECORDS SUMMARY | 2022-08-08 22:56 | XMS_ITS | Encounter Summary ---
:1965 Author Organization [facility] Address [address] [place] [id number] Care Team Providers Name Role Phone Elsewhere, Pcp Primary Care Provider Unavailable Reason for Visit Reason Comments Patient needs to r/s Jul 02 appointments Encounter Details Date Type Department Care Team Description 06/28/2022 Clinical Communication RST ANDREW Pollard, Patient needs to r/s [address] [facility] Lilian Hughes Jul 02 appointments [place], [place] [address] [place] [id number] [place] [address] Social History Tobacco Use Types Packs/Day Years [...] you attend lutheran or Patient refused 2021 judaism services? Do [...] call patient re: this . Thanks, Maritza [phone] documented in this encounter Plan of Treatment Not on filedocumented as of this encounter Visit Diagnoses Not on filedocumented in this encounter Additional Health Concerns Assessment Noted Time PHQ-9 Depression Total Score: 16 02/11/2021 12:00 AM C DT documented as of this encounter Care Teams Dimethylaniline Sulfator Operator Relationship Specialty Start Date End Date Elsewhere, Pcp PCP - General Family Medicine 12/25/21 documented as of this encounter
--- OUTSIDE RECORDS SUMMARY | 2022-08-08 22:56 | XMS_ITS | Encounter Summary ---
:1965 Author Organization [facility] Address [address] [place] [address] Care Team Providers Name Role Phone Elsewhere, Pcp Primary Care Provider Unavailable Reason for Visit Reason Comments Medication Question Encounter Details Date Type Department Care Team Description 06/21/2022 Clinical Communication RST ANDREW Pollard, Medication Question [address] [facility] Lilian Hughes [place], [place] 200 [facility] [phone] [place] [address] Social History Tobacco Use Types Packs/Day Years [...] you attend anabaptism or Patient refused 2021 advent services? Do [...] 1:12 PM CDT Prescriptions are sent to [facility] Telephone Encounter - Brenda Wright - 06/23/2022 3:02 PM CDT The patient called again re: her pregabalin prescription. She did not pick it up at the hospital pharmacy since she did not know it was there. Her regular pharmacy is [facility] in [place]. A newprescription needs to be sent to [facility] in [place]. The patient is out of this medication. Please call the patient if any questions: . She has been calling and has not heard from anyone re: this. 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 Brenda Jefferson [phone] documented in this encounter Plan of Treatment Not on filedocumented as of this encounter Visit Diagnoses Not on filedocumented in this encounter Additional Health Concerns Assessment Noted Time PHQ-9 Depression Total Score: 16 02/11/2021 12:00 AM C DT documented as of this encounter Care Teams Home Extension Agent Relationship Specialty Start Date End Date Elsewhere, Pcp PCP - General Family Medicine 12/25/21 documented as of this encounter
--- OUTSIDE RECORDS SUMMARY | 2022-08-08 22:56 | XMS_ITS | Encounter Summary ---
:1965 Author Organization [facility] Address [address] [place] [address] Care Team Providers Name Role Phone Elsewhere, Pcp Primary Care Provider Unavailable Reason for Visit Appointment Request (Routine) - Closed Specialty Diagnoses / Procedures Referred By Contact Refer red To Contact Orthopedic Surgery Diagnoses Aftercare Total Shoulder Arthroplasty Referral ID Status Reason Start Date Expiration Date Visits Requ ested Visits Authorized [id number] Closed 06/23/2022 06/23/2023 1 1 Encounter Details Date Type Department Care Team Description 06/29/2022 Office Visit Department of Cyrus Polk Left Orthopedic Surgery in [place] (Primary Dx) [place], [place] [address] [place] [address] [address] [place] [phone] Social History Tobacco Use Types Packs/Day Years [...] you attend mosque or Patient refused 2021 shinto services? Do [...] is dismissed to follow up through the [facility], Department of Orthopedic Surgery Total Joint Registry. [...] as of this encounter Care Teams Manager Photo Relationship Specialty Start Date End Date Elsewhere, Pcp PCP - General Family Medicine 12/25/21 documented as of this encounter
--- OUTSIDE RECORDS SUMMARY | 2022-08-08 22:56 | XMS_ITS | Encounter Summary ---
:1965 Author Organization [facility] Address [address] [place] [address] Care Team Providers Name Role Phone Elsewhere, [...] Embolism Right Vertebral Artery (HCC) M.DBritton [address] [place], [place] [phone] Referral ID Status Reason Start Date Expiration Date Visits V isits Requested Authorized [id number] Authorized 06/17/2022 06/17/2023 1 1 Physical Therapy (Routine) - Authorized Specialty Diagnoses / Procedures Referred By Contact Refer red To Contact Explosive Operator Fuse Diagnoses Weakness General Pain Back Ataxia Repeated Falls Debility Primary Osteoarthritis Shoulder Left 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 Stroke Cerebrovascular Accident Personal History Fusion Cervical Spine Status Post Maira Haynes, Fibromyalgia Chronic Pain Syndrome 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 Scooter Tony, NIKKY, C.N.P. [address] [place] [id number] Weakness General (Primary Dx); 06/18/2022 Encounter [facility], Neftali García M.D. [address] [place] [phone] Incontinence Urinary; [facility], Saul Pollard M.D. [address] [place] [address] Pain Back; Domitilla Ataxia; Building, Third Repeated Fal ls; Floor Debility; [address] [facility] Primary Osteoarthritis Shoul marquis Left; [place], [place] Ataxia From [facility] Cerebrovascular Accident; [id number] Stroke Cerebrovascular Accid ent Personal History; [phone] Fusion Cervical Spine Status Post; Fibromyalgia; Chronic [...] you attend anabaptist or Patient refused 2021 tenriism services? Do [...] AM CDT DISCHARGE SUMMARY BRIEF OVERVIEW Hospital: [facility] Discharge Provider: Saul Pollard M.D. Primary Team: [facility] Medicine ([facility]) Primary Care Providers: Elsewhere, Pcp (General) No address on file Primary Care Provider Phone Number: None Primary Care Provider Fax Number: None Admission Date: 06/15/2022 Discharge Date: 06/18/2022 PRINCIPAL DIAGNOSIS Weakness General SECONDARY DIAGNOSES Principal Problem: Weakness General DISCHARGE DISPOSITION [facility] [place]] ACTIVE ISSUES REQUIRING FOLLOW UP Please [...] Scheduled Appointments 06/21/2022 11:00 AM PHR PHARMACIST [address] [place] [address] Pharmacy For appointment details refer to your Patient Appointment Guide. TEST RESULTS PENDING AT DISCHARGE Pending Labs Order Current Status Basic Metabolic Panel In process DETAILS OF HOSPITAL STAY REASON FOR ADMISSION Pain Back Weakness General Incontinence Urinary Ataxia Repeated Falls HOSPITAL COURSE Ms. Mosquera is hospitalized on [facility] Medicine ([facility]) for evaluation and management of Weakness General. [...] does not want to transition to a detention facility currently. She will be stable to discharge once her MRI of the brain and spine results are back and if they are not concerning. Saul Pollard M.D. Maira Haynes M.D. - 06/17/2022 2:07 PM CDT DISCHARGE SUMMARY BRIEF OVERVIEW Hospital: [facility] Discharge Provider: Saul Pollard M.D. Primary Team: [facility] Medicine 4 ([facility]) Primary Care Providers: Elsewhere, Pcp (General) No [...] HOSPITAL COURSE Ms. Mosquera is hospitalized on [facility] Medicine 4 ([facility]) for evaluation and management of Weakness General. [...] AM CDT You were discharged from the [facility] Medicine 4 ([facility]) Service. Please identify this service name if [...] needed, Assistance with walking and moving around [facility] Discharge information provided on 06/16/2022 Contact information: [facility], [address], Tessie Arora - 06/17/2022 10:50 AM CDT Take a copy of this after visit summary to your appointment(s). REID NATH June 28, 2022 - Tuesday --10:00 AM - Hospital Follow-Up with Dr. Blackwell, primary care provider, at [facility] RECOMMENDATIONS: * * [facility] You may have outpatient appointments at [facility] that changed during your hospitalization. Refer to your [facility] Patient Visit Guide (PVG) for the most current schedule of appointments and detailed instructions of tests/procedures. Call [phone], if you did not receive an PVG or need to CANCEL any [facility] appointment(s). AttachmentsThe following attachments cannot be sent through Care Everywhere. Pregabalin (By mouth) (Djiboutian)Furosemide (By mouth) (Djiboutian)documented in this encounter Medications at Time of [...] THC multivit-min/iron/folic/ Take 1 tablet by 0 [id number] (HAIR, SKIN AND mouth daily. NAILS ADVANCED [...] Discussed patient's care with PT Outcome Measures [facility] Inpatient Short Form: Putting on and taking [...] Score: 44.27 Interpretation: Clinicians answer the -[facility] Inpatient Short Form based on [...] showering/bathing, Assistance with meal preparation, Assistance with peer financial counselor, Assistance with shopping, Assistance with housekeeping, Assistance [...] Melton M.D. - 06/17/2022 8:00 PM CDT [facility] 4 ([facility]) PROGRESS NOTE SUBJECTIVE No acute events overnight [...] / PLAN Ms. Mosquera is hospitalized on [facility] Medicine 4 ([facility]) for evaluation and management of Weakness General. [...] Right Lives With: Alone Receives Help From: crew mess attendant, Family, Friend(s) (Son lives in apt next to her.) ADL Assistance: Required assistance ADL Assistance Comments: Gets help from [employer] for her bath/shower 3x/week, and for her meals, RN once every 2 weeks. IADL/Homemaking Assistance: Required assistance IADL/Homemaking Assistance Comments: Gets help for housecleaning Driving: Does not drive Driving Comments: Friend assists Occupational Role: On disability Occupational Role Comments: Previously worked at a [employer] and [employer] Prior Mobility/Functional Transfers Level of [place]: Needs assistance Gait Devices/Wheelchair Used Comments: No AD since [facility]. Home Equipment Home Adaptive Equipment: Medical [...] Staff Present During Session: RN and transportation technician Outcome Measures [facility] Inpatient Short Form: -[facility] Basic Mobility (V.2) How much [...] steps with a railing?: A Lot -[facility] Basic Mobility (V.2) Raw Score: 21 -[facility] Basic Mobility (V.2) Standardized Score: 45.55 Interpretation: Clinicians answer the -[facility] Inpatient Short Form based on [...] patient wasunsure of a few. Consider outpatient [facility] pharmacy review Changes to medications anticipated at discharge:pending hospital course Marlene Wu Pharm.D., R.Ph. [phone] Marlene Wu PharmOj., R.Ph. - 06/16/2022 1:14 PM CDT Images from the original note were not included. Admission Medication History Note Medication list source: Patient + [facility] refill history (patient gets [...] Take 150 mg by mouth every morning. ipomlwbefu-hdvbbnqgksgyo-bozq (ESGIC) 50-325-40 mg per tablet Past Month [...] 1 spray as needed. 5 mg THC multivit-min/iron/folic/qli695 (HAIR, SKIN AND NAILS ADVANCED ORAL) Past [...] Cornelius). Per . Demetri, she lost her devulcanizer charger months ago so has not been able to charge the device. Device was interrogated, however, it was unable to connect to the professional programmer analyst, likely due to the battery being depleted per patient report. technical program manager Mandy in room during interrogation and aware that device is off. Carley Mendez M.D. PGY-3, Anesthesiology and Perioperative Medicine documented in this encounter H&P Notes Renetta Michael M.D., M.S. - 06/15/2022 11:41 PM CDT Images from the original note were not included. [facility] Medicine 4 ([facility]) - ADMISSION NOTE Hospital Day 0 This [...] but left AMA. She presented to the [place] ED 06/15. In the ED, she was [...] Urinalysis Case will be staffed with supervising financial operations consultant within 24 hours. Please page the [facility] Medicine 4 ([facility]) service pager at [phone] with questions or concerns. Renetta Michael M.D., M.S. PGY-3 [phone] Department of Internal Medicine Kiran Melton M.D. - 06/15/2022 12:05 AM CDT [facility] Medicine 4 ([facility]) Admission Note SUBJECTIVE CHIEF COMPLAINT Generalized weakness [...] overflow incontinence. She was seen in the [place] [facility] a few days ago where they obtained a CT head without evidence for new infarct. She left against medical advice and came to [place] for re-evaluation. Upon arrival to the ED, [...] Take 150 mg by mouth every morning. oiyilvbsbp-wzxkdxzuqpeca-hwom (ESGIC) 50-325-40 mg per tablet, Take 1 [...] 1 spray as needed. 5 mg THC multivit-min/iron/folic/nbg670 (HAIR, SKIN AND NAILS ADVANCED ORAL), Take [...] / PLAN Ms. Mosquera is hospitalized on [place] [address] ([facility]) for evaluation and management of Weakness General. [...] or life-threatening deterioration of the following conditions: CHILD CARE CENTER ASSISTANT DIRECTOR failure or compromise Critical care was time [...] Grab Bars Support from family [facility] [place]JECTIVE Baker Biscuit met with patient to discuss final discharge plans. Patient is agreeable to restart her home health nursing and DIRECT ENTRY MIDWIFE along with PT. Patient will have her friend transport her home today. ASSESSMENT / PLAN Assessment The patient appear to have insight into the patient's needs at this time and are planning appropriately for discharge needs. They report agreement with the below plan with no further questions at this time. Plan [facility] Georgette RN: [phone] Home health requesting an AVS discharge summary [...] Cris Landin R.N. 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 IADL/Homemaking Assistance: Required assistance IADL/Homemaking Assistance Comments: Gets help for housecleaning Driving: Does not drive Driving Comments: Friend assists Occupational Role: On disability Occupational Role Comments: Previously worked at a [employer] Prior Mobility/Functional Transfers Level of [place]: Needs assistance Previous Transfer/Mobility Assistance Comments: Patient [...] quite lethargic, yet impulsive required assistance to [facility] gown and shoulder immobilizer to [...] and patient's status was discussed Outcome Measures [facility] Inpatient Short Form: Putting on and taking [...] Score: 32.03 Interpretation: Clinicians answer the -[facility] Inpatient Short Form based on [...] dressing, Assistance with meal preparation, Assistance with peer financial counselor, Assistance with shopping, Assistance with housekeeping, Assistance [...] our care management team. Rehab potential: Ms. Msoquera has fair potential to achieve established occupational [...] Planning Assessment SUBJECTIVE Assessment Information Referral Source: manager channel Referral Reason: Discharge Planning Primary Language: Djib[place]ian Instrument Maker Services Used: No Person(s) present during interview: [...] Pleasant, Calm Communication: Talks, Understands speaking, Understands [place]ian Shopping: Needs assistance Transportation: Support from family Medication Management: Independent Housekeeping: Dependent Meal Prep: Needs assistance Managing Finances: Needs assistance Assistive Devices: Cane, Tub/shower chair/bench Services/Resources: Home health Agency Name: Home health reconnect Services Provided: detention twice monthly, DIRECT ENTRY MIDWIFE 3 times a week Baseline Services/Resources Primary care clinic and provider: ELSEWHERE, PCP Services/Resources: Home health Additional Resources: none Anticipated Needs Functional Status: Bathing, Dressing, Grooming/hygeine, Meal preparation, Medication set-up/administration, Housekeeping, Shopping, Transportation use (drive car, use taxi/bus) Assistive Devices: Tub/shower chair/bench, Grab bars - toilet, Grab bars - wall Services/Resources: Home health Agency Name: [facility] health [facility] Provided: detention twice monthly, DIRECT ENTRY MIDWIFE 3 times a week Anticipated Modifications to the Patient's Home: Grab Bars Transportation Needs: Support from family Does the patient need discharge transport arranged?: No Phone Number for Ride/Caregiver: son or daughter Anticipated Discharge Destination: [facility] ASSESSMENT / PLAN Assessment: The manager channel met with Angie Mosquera to discuss her current hospitalization and home goingneeds. The patient was unaccompanied. The patient was a reliable historian. The role of manager channel was reviewed. The patient reviewed her prior level of care and support system. The patient receives support from her daughter, son, and home care staff . The patient described her living environment as a apartment with elevator access with level entry. Housekeeping, grocery shopping, meal prep, and other household responsibilities have previously been completed by patient and patient's son. manager channel discussed the [facility] based on their home setting, previous [...] ADL's. She currently has home health through [facility] for detention twice monthly and [facility] 3 times a week for 1 1/2-2 [...] identified the following as their current vendor(s): [facility]. After reviewing the patient's chart and meeting with the patient, the manager channel deemed the LACE+/readmission questions were appropriate. The [...] readmission could not have been prevented. The manager channel will share this information with the care team. The patient reports understanding that she will dismiss from the hospital when medically stable. Pending hospital course and medical readiness, no barriers to dismissal have been identified at this time. Plan: The patient agrees with the following plan. Patient's anticipated discharge disposition is: Home with Home Healthcare Reconnected: [facility] Transportation upon dismissal will be provided by family--son or daughter . manager channel recommended a shower seat, grab bars, home delivery of groceries, and reaching out to family, friends, and neighbors for assistance. manager channel provided information regarding the dismissal process and the Advance Health Care Planning: Making Your Wishes Known [id number] booklet along with education on the benefits of completing an advance directive and resources that may assist them in this process. The patient sharedno further questions or concerns regarding advance directives. The patient appears to have an understanding of how to complete an advance directive and reported awareness of resources to assist them. manager channel placed or requested the following hospital-based consult orders and/or referrals: PT/OT. manager channel will continue to assess for homegoing needs with the interdisciplinary team. manager channel encouraged the patient to reach out with any questions/concerns. Patient to discharge with home health care. [facility] Georgette RN: [phone] Home health requesting an AVS discharge summary [...] Prescriptions are provided by pain management through [facility] and her PCP Dr. Blackwell. [...] lumbosacral radicular pain, last reportedly revised at [facility] in 2019. The initial implant date is unknown. She had turned the device off for one her surgeries, then misplaced the professional programmer analyst. She has received a new professional programmer analyst, but has not gotten to using the new device. It is at her home. She thinks she has not used the SCS for several months. CURRENT MEDICATIONS: Acetaminophen 1 g four times a day Lezgnbxzasyjp-hktmfyrb-vyzksmsgv-Lipoderm cream twice a day Diclofenac 1% gel [...] mg by mouth every morning. Past Week jhviotobrd-atoxqgrpbatkp-teig (ESGIC) 50-325-40 mg per tablet Take 1 [...] as needed. 5 mg THC Past Week multivit-min/iron/folic/rsf527 (HAIR, SKIN AND NAILS ADVANCED ORAL) Take [...] Daily Given, 1,000 mg at 06/16 1345 tkjbhfsufvzbo-nrijcloz-bctneptds in Lipoderm 2%-0.5%-2% cream 1 g 1 [...] PRN Given, 100 mg at 06/16 921 tawxixyqsw-ixxlbjwkoswpj-wpci 50-325-40 mg per tablet 1 tablet (ESGIC) [...] Depth/Rhythm: Regular (06/15/228 : Asia Cortez RBetsy, [facility]) PAIN PHYSICAL EXAM GENERAL: Pleasant, 57 [...] longitudinally with an outpatient pain provider at [facility]. Though she is on several CHILD CARE CENTER ASSISTANT DIRECTOR acting medications that could increase the risk [...] organic cause for symptoms - work with [employer] to get her SCS therapy active in the outpatient setting Discussed with Pain Drug Room Operator Dr. Kaushik Gustafson. Thank you for allowing the Inpatient Pain Service to be a part of Angie Mosquera's care. The [facility] Inpatient Pain Service will sign off. Please page [phone] with questions. Anthony Shepard PAna, Juice.P.Jolanta., C.S.C.S. 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 IADL/Homemaking Assistance: Required assistance IADL/Homemaking Assistance Comments: Gets help for housecleaning Driving: Does not drive Driving Comments: Friend assists Occupational Role: On disability Occupational Role Comments: Previously worked at a [employer] and [employer] Prior Mobility/Functional Transfers Level of [place]: Needs assistance Gait Devices/Wheelchair Used Comments: No AD since shoulder [facility]. Home Equipment Home Adaptive Equipment: [...] eye protection, and gloves Outcome Measures -[facility] Inpatient Short Form: -[facility] Basic Mobility (V.2) How much [...] steps with a railing?: A Lot AM-[facility] Basic Mobility (V.2) Raw Score: 20 AM-[facility] Basic Mobility (V.2) Standardized Score: 43.99 Interpretation: Clinicians answer the -[facility] Inpatient Short Form based on [...] independent with ADLs but does have a ATTORNEY GENERAL 3 times per week to assist with [...] is currently below her functional baseline, declining detention facility but agreeable to home health PT [...] She now presented to the ED at [facility] for a second opinion. Review [...] (WELLBUTRIN XL) 150 mg, oral, Every morning svtmqnxpvi-xaviwtfgrijvf-qzvv (ESGIC) 50-325-40 mg per tablet 1 tablet, [...] 1 spray as needed. 5 mg THC multivit-min/iron/folic/mwy895 (HAIR, SKIN AND NAILS ADVANCED ORAL) 1 [...] PM CDT Care of patient transferred to pr by Scooter Tony. Disposition pending MRI with [...] have chronic pain and she lost the devulcanizer charger for her [employer] SCS device several months ago. An MRI [...] relieve her symptoms she was seen in [place] ER few days ago and had no [...] over the past weeks was recently evaluated [facility] which she had a CT of her [...] as of 06/16/22 0848 TueJun 15, 2022 0515 Given patient's history exam I do have concern for possible underlying cauda equina given her recent falls increased back pain some lower leg weakness this could be secondary to other injury thus difficult to assess and urinary incontinence. Will page Neurology have them evaluate further. [id number] Patient continues to be a poor historian [...] medicine. 2025 Patient will go back to [place] awaiting a MRI and then disposition. 2025 [...] is a the provider I spoke with.Pager #[phone] Final Diagnoses: as of 06/16/22 0848 Weakness [...] a recent fall. Pt was seen in [place] yesterday. Ct scan performed. Pt is here for a second opinion. Elaine Winn R.N. 06/15/22 1108 documented in this encounter Miscellaneous Notes Hospital Course - Maira Haynes M.D. - 06/16/2022 7:30 AM CDT Ms. Mosquera is hospitalized on [facility] Medicine 4 ([facility]) for evaluation and management of Weakness General. [...] Referral Routine Weakness G eneral Ordered: PT ([facility]) Pain Back 06/17/2022 Ataxia Repeated Falls Debility [...] CBC without Differential (06/18/2022 7:50 AM CDT) [facility] Method Time Signature Hemoglobin [...] [facility] - [address] [place], [place] [address] [facility] [place] [address] [facility] [address] Basic Metabolic Panel (06/18/2022 [...] 06/18/2022 DTL Black/ mL/min/BSA 8:56 AM CDT Eritrean Comment: ----ADDITIONAL INFORMATION---- Estimated GFR calculated using [...] [facility] - [address] [place], [place] [address] [facility] [place] [address] [facility] [address] [facility] MR Thoracic Spine without IV Contrast [...] 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 [place] intraocular lenses are absent . 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 [place] intraocular lenses are absent . 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 [place] intraocular lenses are absent . 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 [place] intraocular lenses are absent . 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 [place] intraocular lenses are absent . 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 [place] intraocular lenses are absent . Mild mucosal [...] CBC without Differential (06/17/2022 8:00 AM CDT) [facility] gist Method Time Signature Hemoglobin 10.5 (L) [...] [facility] - [address] [place], [place] [address] [facility] [place] [address] [facility] [address] [facility] Basic Metabolic Panel (06/17/2022 8:00 AM [...] 06/17/2022 DTL Black/ mL/min/BSA 9:34 AM CDT Eritrean Comment: ----ADDITIONAL INFORMATION---- Estimated GFR calculated using [...] M.D. LAB BLOOD ADD-ON Performing Organization Address City/[facility]/ZIP Code Phon e Number [facility] - 200 [place], [place] [address] [place] [id number] [place] [address] (ABNORMAL) Dipstick, Urine (06/16/2022 9:32 AM CDT) [facility] Method Time Signature Hemoglobin, [...] M.D. LAB URINE ORDERABLES Performing Organization Address City/[facility]/ZIP Code Phon e Number [facility] [id number] [place] [address] Osmolality, Urine (06/16/2022 9:32 AM CDT) P athologist Signature Osmolality, U 745 150 - 1150 06/16/2022 DTL mOsm/kg 11:17 AM CDT Specimen Anatomical Collection Method Collection Time Receive d Time (Source) Location / / Volume Laterality Urine 06/16/2022 9:32 AM 2 CDT 10:39 AM CDT Maira Haynes M.D. LAB URINE ORDERABLES Performing Organization Address City/[facility]/ZIP [facility] Phon e Number [facility] - [address] [place] [address] [address] [place] [address] [facility] 200 [facility] pH, Random, Urine (06/16/2022 9:32 AM CDT) P athologist Signature pH, Random, U 5.0 4.5 - 8.0 06/16/2022 DTL 11:17 AM CDT Specimen Anatomical Collection Method Collection Time Receive d Time (Source) Location / / Volume Laterality Urine 06/16/2022 9:32 AM 2 CDT 10:39 AM CDT Maira Haynes M.D. LAB URINE ORDERABLES Performing Organization Address City/[facility] Code Phon e Number [facility] - [address] (ABNORMAL) Microscopic Manual (06/16/2022 9:32 AM [...] M.D. LAB URINE ORDERABLES Performing Organization Address City/[facility]/ZIP Code Phon e Number [facility] - [address] [place], [place] [address] [facility] [address] (ABNORMAL) Urinalysis with Microscopic: Urine, Catheter [...] M.D. LAB URINE ORDERABLES Performing Organization Address City/State/[facility] Code Phon e Number [facility] - [address] [place], [place] [address] [facility] [place] [address] Laboratories-[facility] 200 [facility] Vitamin B12 Assay (06/16/2022 7:31 AM [...] M.D. LAB BLOOD ADD-ON Performing Organization Address City/[facility] Phon e Number [facility] - [address] [place] [address] Hemoglobin A1c (06/16/2022 7:31 AM CDT) P athologist Signature Hemoglobin A1c, 4.9 4.0 - 5.6 06/16/2022 DTL B % 8:13 AM CDT Specimen Anatomical Collection Method Collection Time Receive d Time (Source) Location / / Volume Laterality Blood (Blood, 06/16/2022 7:31 AM 06/16/20 7:51 Venous) CDT AM CDT Kiran Melton M.D. LAB BLOOD ADD-ON Performing Organization Address [facility] Phon e Number [facility] - [address] (ABNORMAL) CBC without Differential (06/16/2022 7:31 [...] [facility] - [address] [place], [place] [address] [facility] [place] [address] Laboratories[facility] [address] (ABNORMAL) Comprehensive Metabolic Panel [...] 06/16/2022 DTL Black/ mL/min/BSA 8:22 AM CDT E[place]an Comment: ----ADDITIONAL INFORMATION---- Estimated GFR calculated using [...] Number [facility] - [address] [place] [address] [facility] [place] [address] [facility] 200 [facility] Critical Care (06/15/2022 8:47 PM CDT) [...] life-threatening deterioration of the fo llowing conditions: CHILD CARE CENTER ASSISTANT DIRECTOR failure or compromise Critical care was time spent personally by me on the following activities: ordering and review of radiographic stud ies, ordering and review of laboratory studies, discussions with [facility] provider, discussions with consultants, examination of patient, rev iew of old charts and re-evaluation of patient's condition Scooter Tony APRN, C.N.P. PROCEDURE/MINOR SURGICA L ORDERABLES SARS Coronavirus 2, PCR Rapid, V Symptomatic (06/15/2022 7:51 PM CDT) [facility] Method Time Signature SARS CoV-2, Undetected Undetected 06/15/2022 [facility] PCR, Rapid, V 8:23 PM CDT Comment: ----ADDITIONAL INFORMATION---- This RT-PCR test was performed using the Tita SARS-CoV-2 and Influenza A/B Reagent assay from [employer], which has received Emergency Use Authori zation(EUA) by the U.S. Food and Drug Administration . Fact sheets for this Emergency Use Autho rization (EUA) assay can be found at the following link s: For Healthcare Providers: https://www.fda.gov/media/961518/downloa d For Patients: https://www.fda.gov/media/823638/downloa d SARS Coronavirus 2, Source, Rapid Swab, Nasopharynx 06/15/2022 7:58 PM CDT [facility] Specimen Anatomical Collection Method Collection Time Receive d Time (Source) Location / / Volume Laterality Varies 06/15/2022 7:51 PM 7:58 (Nasopharynx) CDT PM CDT Scooter Tony APRN, Ricky.N.P. LAB MICROBIOLOGY - GENE RAL ORDERABLES Performing Organization Address City/State/ZIP Code Phon e Number [facility] - [address] [place] [address] [address] [place] [address] [facility] [address] [facility] [address] Head Neck Angiogram with IV [...] 2H/6H, 5th Gen (06/15/2022 2:48 PM CDT) [facility] Method Time Signature Troponin T, 2 <6 [...] 06/15/20 3:21 Venous) CDT PM CDT Narrative [facility] - [facility] - 06/15/2022 3:54 PM CDT Specimen Information: Specimen ID: [id number] Specimen Type: Blood Specimen Collection Start Date: 06/15/20 ??2:48 PM Specimen Received Date: 06/15/2022 ??3:2 1 PM Specimen ID: [id number] Specimen Type: Blood Specimen Collection Start Date: 06/15/20 ??3:53 PM Specimen Received Date: 06/15/2022 ??3:5 3 PM Demarcus Ernst M.D. LAB BLOOD TROPONIN Performing Organization Address City/State/ZIP Code Phon e Number [facility] - [address] [place] [address] [address] [place] [address] [facility] 200 [facility] DX Hip And Pelvis Left 2-3 [...] Signature Ventricular Rate 58 BPM MUSE ECG/Min MO Interval 154 ms MUSE QRSD Interval 102 ms MUSE QT Interval 442 ms MUSE QTC Interval 433 ms MUSE P [place] 48 degrees MUSE R [place] -1 degrees MUSE T Wave [place] 38 degrees MUSE Specimen Anatomical Collection Method [...] M.D. LAB BLOOD TROPONIN Performing Organization Address City/[facility] Phon e Number [facility] - [address] [place] [address] 05 [facility] STMA [address] (ABNORMAL) Hepatic Function Panel (06/15/2022 12:37 [...] M.D. LAB BLOOD ADD-ON Performing Organization Address City/[facility] Phon e Number [facility] - [address] [place] [address] [facility] [place], [place] [phone] [place] [address] [facility] Basic Metabolic Panel (06/15/2022 12:36 PM [...] CDT eGFR-Black/Afric >90 >=60 06/15/2022 STMA an Erit[place]an mL/min/BSA 1:34 PM CDT Comment: ----ADDITIONAL INFORMATION---- [...] Address City/State/ZIP Code Phon e Number [facility] - [facility] [address] [place], [place] [address] [facility] [place] [address] [facility] [address] (ABNORMAL) CBC with Differential, Blood (06/15/2022 12:36 PM CDT) [facility] Method Time Signature Hemoglobin 10.4 (L) 11.6 [...] [facility] - [address] [place], [place] [address] [place] [address] [address] Laboratories[facility] 200 [facility] Prothrombin Time (PT) (06/15/2022 12:34 PM CDT) P athologist Signature Prothrombin 10.2 9.4 - 12.5 06/15/2022 [facility] Time, P sec 1:10 PM CDT INR 0.9 0.9 - 1.1 06/15/2022 [facility] 1:10 PM CDT Comment: ----ADDITIONAL INFORMATION---- [...] [facility] - [address] [place], [place] [address] [place] [address] Interpretation of Outside CT Spine (06/15/2022 [...] Modality Head, Neuroradiology RST LOS, Neuroradiology [facility], N/A Computed Tomography Neuroradiology [facility], Other Specimen (Source) Anatomical Collection Method [...] Given 06/17/2022 9:20 AM CDT 1,000 mg oqiycxzbjwcuc-oyiggilb-hgluokfse in Lipoderm Given 06/18/2022 10 :23 AM [...] Given 06/16/2022 9:16 AM CDT 150 mg vohderboid-fmmtkosbjjchj-exup 50-325-40 mg Given 06/17 6:03 PM CDT [...] 2057 (Given - Provider: Erwin Tello RBrittonNBritton) uoptyzmwvwhzf-elfjflgw-okoftbyfh in Lipoderm 2%-0.5%-2 % cream 1 g [...] Do NOT crush, chew or open capsule. dhwjuwzjxv-dnsyzzbdpfrof-vpcy 50-325-40 mg per tablet 1 tablet (ESGIC) 1359 (Given - Provider: Gini Newberry R.N.)2108 (Given - Provider: Rufina Husain R.N.) 1038 (Given - Provider: Kennedi Cabrera APRN, CHILD CARE CENTER ASSISTANT DIRECTOR, M.S.N.)1803 (Given - Provider: Gini Newberry R.N.) 1 tablet, oral, Every 6 hours PRN, migraine, Starting on 05/29 at 0107 diphenhydrAMINE-zinc acetate 1 % cream 1 application ( BENADRYL) 1431 (Given - Provider: Gini Newberry R.N.) 1 application, topical, 4 times daily MO N, itching, Starting on Tue06/16/22 at 0306 [...] COMPLETED) 1642 (Given - Provider: Sapphire Verma, LIBRARY SALES CONSULTANT, HAT BRIM CURLER, DNAP) 1 patch, transdermal, Administer over 72 [...] documented as of this encounter Care Teams Program Manufacturing Leader Relationship Specialty Start Date End Date Elsewhere, Pcp PCP - General Family Medicine 12/25/21 documented as of this encounter
--- OUTSIDE RECORDS SUMMARY | 2022-08-08 22:56 | XMS_ITS | Encounter Summary ---
:1965 Author Organization [facility] Address [address] [place] [address] Care Team Providers Name Role Phone Elsewhere, Pcp Primary Care Provider Unavailable Reason for Visit Reason Comments Med Refill Encounter Details Date Type Department Care Team Description 07/19/2022 Refill Division of [facility] Internal H Hoda parmar M.D. Med Refill Medicine, [facility], [place] [address] [place] [address] [place], [place] [address] [phone] Social History Tobacco Use Types Packs/Day Years [...] you attend spiritism or Patient refused 2021 baptist services? Do [...] documented as of this encounter Care Teams Derrick Man Relationship Specialty Start Date End Date Elsewhere, Pcp PCP - General Family Medicine 12/25/21 documented as of this encounter
--- OUTSIDE RECORDS SUMMARY | 2022-08-08 22:56 | XMS_ITS | Encounter Summary ---
:1965 Author Organization [facility] Address [address] [place] [address] Care Team Providers Name Role Phone Elsewhere, Pcp Primary Care Provider Unavailable Reason for Visit Reason Onset Date Comments Left Without Being Seen 07/22/2022 Physical Therapy (Routine) - Authorized Specialty Diagnoses / Procedures Referred By Contact Refer red To Contact Diagnoses Aftercare Total Shoulder Arthroplasty Flavia Broderick M.D. [facility] Procedures PT or OT eval and treat (first available) Referral ID Status Reason Start Date Expiration Date Visits V isits Requested Authorized [id number] Authorized 06/23/2022 06/23/2023 99 99 Encounter Details Date Type Department Care Team Description 06/29/2022 Comprehensive Visit Department of Physical Juaquin Broderick M.D. Procedure And Treatment Not Carried Out Due To Patient Leaving Prior To Being Seen By Health Care Provider (Primary Dx); Medicine and Jessie Faye M.S., O.T. 200 [place] [id number] Aftercare Total Shoulder Arthroplasty Rehabilitation in [place], [place] [address] [place] [address] Social History Tobacco Use Types Packs/Day Years [...] you attend restoration or Patient refused 2021 anglican services? Do you belong to any clubs or No 05/17/2022 organizations such as restoration groups, unions, fraMoneero or athletic groups, or school groups? How [...] X-ray and Dr. Polk. Patient arrived at [place] [address] des and was rescheduled. documented in this [...] as of this encounter Care Teams Back Tacker Relationship Specialty Start Date End Date Elsewhere, Pcp PCP - General Family Medicine 12/25/21 documented as of this encounter
--- NOTE | 2022-08-08 22:57 | PC.NURSE ---
pt with call light on I need to see the doctor as I am in so much pain. noted to be rubbing right hip and texting at some time.
--- OUTSIDE RECORDS SUMMARY | 2022-08-08 22:57 | XMS_ITS | Encounter Summary ---
:1965 Author Organization [facility] Address [address] [place] [address] Care Team Providers Name Role Phone Elsewhere, Pcp Primary Care Provider Unavailable Reason for Visit Reason Comments xray results Encounter Details Date Type Department Care Team Description 06/10/2022 Clinical Communication Department of Cyrus Polk xr ay results Orthopedic Surgery in [place], [place] [address] [place] [address] 200 [place] [phone] [phone] Social History Tobacco Use Types Packs/Day Years [...] you attend orthodoxy or Patient refused 2021 pentecostal services? Do [...] Cyrus Polk M.D. CT CT Job ID: [id number] documented in this encounter Miscellaneous Notes Telephone [...] documented as of this encounter Care Teams Registered Public Surveyor Relationship Specialty Start Date End Date Elsewhere, Pcp PCP - General Family Medicine 12/25/21 documented as of this encounter
--- OUTSIDE RECORDS SUMMARY | 2022-08-08 22:57 | XMS_ITS | Encounter Summary ---
:1965 Author Organization [facility] Address [address] [place] [address] Care Team Providers Name Role Phone Elsewhere, Pcp Primary Care Provider Unavailable Encounter Details Date Type Department Care Team Description 05/18/2022 - Hospital Encounter [facility] Mable Polk In fection Of Left Shoulder In Infectious And Parasitic Diseases Classified Elsewhere (HCC) (Primary Dx); 05/20/2022 Hospital, Buddhist Cyrus Souza M.D. Shoulder Joint Disorder Left; [place], [facility] [address] [facility] Pain Shoulder Left; Building, [place], [place] Primary Os teoarthritis Shoulder Left Floor [address] [address] [facility] [phone] [place], [place] (Work) [address] Social History Tobacco Use [...] AM CDT DISCHARGE SUMMARY BRIEF OVERVIEW Hospital: [facility] Discharge Provider: Cyrus Polk M.D. [...] RST ROEI OR DISCHARGE DISPOSITION Home-Health Care [facility] [6] ACTIVE ISSUES REQUIRING FOLLOW UP This document serves as a prescription to continue physical therapy, medications, and labs or x-raysif ordered/required. If you have any questions or concerns about surgery or upcoming appointments, please do not hesitateto contact Dr. Polk's office at [phone] during regular business hours (8am-5pm M-F). For emergencies on the weekend or after hours, you may contact Dr. Polk's service via the [facility] crepe machine operator at [phone]. Details for your 6 week follow-up appointment [...] to: Cyrus Polk MD Dept of Orthopedics [address], [address] None OUTPATIENT FOLLOW UP For appointment details [...] M.D.Wasserburger, Jory N, M.D.Markos, James R, M.D. [facility] OR Angie Mosquera was [...] Sig Dispensed Refills Start Date End Date Arnuity Ellipta 100 Inhale 1 puff daily. 0 2021 mcg/actuation diskus inhaler atorvastatin (LIPITOR) Take 1 tablet (80 mg [...] THC multivit-min/iron/folic/ Take 1 tablet by 0 [id number] (HAIR, SKIN AND mouth daily. NAILS ADVANCED ORAL) oxyCODONE (ROXICODONE) Take 10 mg by mouth 0 01/28 10 mg IR tablet every 4 (four) hours as needed for pain. Per patient uses 4-5 tablets per day usually polyethylene glycol Take 17 g by mouth as 0 04/11 (MIRALAX) 17 gram/dose needed for oral powder constipation. rOPINIRole (REQUIP) 2 mg Take 2 mg [...] capsule 2 (two) times a day. albuterol (PROVENTIL Inhale 2 puffs every 0 HFA,VENTOLIN HFA) 90 6 (six) hours as mcg/actuation inhaler needed for wheezing or shortness of breath. aspirin 325 mg tablet Take 1 tablet (325 mg 0 12/2021 total) by mouth every evening. naloxone (NARCAN) 4 Administer 1 spray 0 03/26/20 22 mg/actuation nasal spray into one nostril as directed. SPRAY 0.1 MILLILITER BY INTRANASAL ROUTE IN 1 NOSTRIL MAY REPEAT DOSE EVERY 2-3 MINUTES NEEDED ALTERNATING NOSTRILS rizatriptan (MAXALT) 10 Take 1 tablet by 0 2021 mg tablet mouth as directed. May repeat every 2hrs as needed (Max 30mg/24hrs) SUMAtriptan (IMITREX) 5 1-2 sprays as needed. 0 0 04/24/2022 mg/actuation nasal spray cholecalciferol (VITAMIN Take 125 mcg by mouth [...] a day. Per patient usually takes daily ondansetron ODT Take 1 tablet by 0 01/16/2010 (ZOFRAN-ODT) 8 mg mouth 3 (three) times disintegrating tablet a day as needed for nausea. pregabalin (LYRICA) 300 Take 600 mg by mouth 0 06/17/2022 mg capsule 2 (two) times a day. QUEtiapine (SEROquel) 50 Take 50 mg by mouth 0 06/17/2022 mg tablet at bedtime. acetaminophen (TYLENOL) Take 2 capsules 0 022 06/21/2022 500 mg capsule (1,000 mg total) by mouth every 6 (six) hours as needed for pain. Start the day of surgery. oxyCODONE (ROXICODONE) 5 Take 1 tablet (5 mg 30 tablet 0 06/16/2022 mg immediate release total) by mouth every tabletIndications: Acute 4 (four) hours as Pain, Acute Pain needed for severe Exception pain or score 7-10 of 10 Indication: Acute Pain, Acute Pain Exception. traMADoL (ULTRAM) 50 mg Take 1 tablet (50 mg 24 tablet 0 06/17/2022 tabletIndications: Acute total) by mouth every Pain, Acute Pain 6 (six) hours as Exception needed for severe pain or score 7-10 of 10 Indications: Acute Pain, Acute Pain Exception. documented as [...] mask during therapy session: yes Outcome Measures -[facility] Inpatient Short Form: -[facility] Basic Mobility (V.2) How much help [...] 3-5 steps with a railing?: A Little AM-[facility] Basic Mobility (V.2) Raw Score: 18 AM-[facility] Basic Mobility (V.2) Standardized Score: 41.05 Interpretation: Clinicians answer the -[facility] Inpatient Short Form based on observed [...] 6 pm, please page Jam service at [phone] For urgent matters from 6 pm until 6 am, please page [facility] [phone] Jane Nguyen PharmBrittonD., R.Ph. - 05/19/2022 8:12 [...] at this time. Jane Nguyen Pharm.D., R.Ph. [phone] Kaushik Cadena M.D. - 05/19/2022 7:34 AM [...] 6 pm, please page Jam service at [phone] For urgent matters from 6 pm until 6 am, please page [facility] [phone] Paco Valentine - 05/18/2022 9:47 AM CDT Encounter: AM Admit Deanna Tradition: No islam affiliation. Ms. Mosquera did not express any spiritual needs at this time. Plan: Will remain available for spiritual care as needed or requested. Chaplains can be [facility] [phone] ([facility]). Rodrigo Preston, Mynor, R.Ph. - [...] Take 150 mg by mouth every morning. whwiycxfkh-xiefpakjsuyop-hqfq (ESGIC) 50-325-40 mg per tablet Past Week [...] 1 spray as needed. 5 mg THC multivit-min/iron/folic/dwy782 (HAIR, SKIN AND NAILS ADVANCED ORAL) Past [...] Patient's Name: Angie Mosquera Referring/Attending Provider: Cyrus Plok M.D. Medical Diagnosis: Shoulder Joint Disorder Left [...] Profile Lives With: Alone Receives Help From: warehouse attendant, Family, Friend(s) ADL Assistance: Required assistance ADL Assistance Comments: Gets help from INTER[employer]ATIONAL [employer] OFF[employer] for her bath/shower 3x/week, and for her meals IADL/Homemaking Assistance: Required assistance IADL/Homemaking Assistance Comments: Gets help for housecleaning Driving: Does not drive Driving Comments: takes her cane and medical alert with her. Occupational Role: On disability Occupational Role Comments: Previously worked at a [employer] Prior Mobility/Functional Transfers Level of [place]: Needs assistance Previous Transfer/Mobility Assistance Comments: Patient [...] mask during therapy session: yes Outcome Measures AM-[facility] Inpatient Short Form: AM-[facility] Basic Mobility (V.2) [...] 3-5 steps with a railing?: A Little -[facility] Basic Mobility (V.2) Raw Score: 18 -[facility] Basic Mobility (V.2) Standardized Score: 41.05 Interpretation: Clinicians answer the -[facility] Inpatient Short Form based on observed [...] Nurse Referral Reason: Discharge Planning Primary Language: Portuguese Sand System Operator Services Used: No Person(s) present during interview: Person(s) Present During Interview: patient History of Present Illness #1 Primary Osteoarthritis Shoulder Left Social History Support System: children, case manager specialist/community mental health social worker, friends/neighbors and home care staff [...] Calm, Oriented Communication: Talks, Understands speaking, Understands Portuguese Shopping: Needs assistance Transportation: Support from family Medication Management: Needs assistance Housekeeping: Needs assistance Meal Prep: Needs assistance Managing Finances: Independent Assistive Devices: Grab bars - wall, Eyeglasses Services/Resources: Other (comment) Agency Name: [facility] Services Provided: [employer] FIRST [employer] services 3x/week, nurse visits every other week Baseline Services/Resources Primary care clinic and provider: [facility] Phone: Fax: Anticipated Needs Functional Status: Transfer to/from bed, chair, etc., Bathing, Dressing, Grooming/hygeine, Housekeeping, Shopping, Meal preparation, Mobility, Medication set-up/administration, Transportation use (drive car, use taxi/bus) Services/Resources: Other (comment) Agency Name: [facility] Services Provided: [employer]ATIONAL FIRST OFFIC[employer] services 3x/week, nurse visits every other week Transportation Needs: Support from family Does the patient need discharge transport arranged?: No Ride and Caregiver Arranged: Yes Anticipated Discharge Destination: Home-Health Care [facility] ASSESSMENT / PLAN Assessment: The psychiatric nurse met with Angie Mosquera to discuss her current hospitalization and home goingneeds. The patient was unaccompanied. The patient was a reliable historian. The role of psychiatric nurse was reviewed. The patient reviewed her prior level of care and support system. The patient receives support from her son, friends and home care staff. Patient reported her son lives in the same apartment as her. She also stated getting [employer]ATIONAL FIRST OFFIC[employer] services 3x/week and a nurse visits her every other week. The patient described her living environment as a two bedroom apartment. Housekeeping, grocery shopping, meal prep, and other household responsibilities have previously been completed by patient, patient's son and patient's caregiver(s). psychiatric nurse discussed the patient's potential needs at [facility] based on their home setting, previous needs and responsibilities, homebound status, and relevantassessments with the patient. The patient will be safe and supported to return home with [facility] or previous services noted above when medically ready. Support will be provided by son, friends and home care staff. The patient demonstrated understanding when discussing her home going plans and anticipated needs. At this time, the care team anticipates the patient requires the following service(s) to be reconnected: home healthcare. The patient identified the following as their current vendor(s): [facility]. During this visit patient verbalized she is hoping to increase her INTERNATIONAL FIRST OFFICER hours and also inq uired about getting a scooter to assist in her mobility. Patient went on to share she is unstable attimes due to her stroke history. She thought perhaps her neurology doctor would be able to help her get a scooter. RN ROWAN recommended she follow up with the psychiatric hospital in regards to wanting more INTERNATIONAL FIRST OFFICER hours. She was also recommended to follow up with her primary care provider to provide durable medical equipment justification for a scooter, as she is currently hospitalized for orthopedic surgery. Patient verbalized understanding. Patient informed RN CM would be reconnecting her INTERNATIONAL FIRST OFFICER services and nurse visits with [facility]. Patient agreeable to RN CM completing this and even provided RN CM the name and contact of her INTERNATIONAL FIRST OFFICER and RN. After reviewing the patient's chart and meeting with the patient, the psychiatric nurse deemed the LACE+/readmission questions were not necessary. The patient reports understanding that she will dismiss from the hospital when medically stable. Pending hospital course and medical readiness, no barriers to dismissal have been identified at this time. Plan: Patient to discharge with home health care. [facility] Contact: RADHA Palomino ATTN: Georgette NURSING: [...] directive. PRIMARY SERVICE: - Please provide a non-[facility] health order for resumption of previous services [...] dismissal will be provided by family. 3. psychiatric nurse recommended reaching out to family, friends, and neighbors for assistance. 4. psychiatric nurse provided information regarding the dismissal process. 5. psychiatric nurse placed or requested the following hospital-based consult orders and/or referrals:None. 6. psychiatric nurse will continue to assess for homegoing needs with the interdisciplinary team. 7. psychiatric nurse encouraged the patient to reach out with [...] falls. Patient will discharge to home with [facility] reconnect. Identify possible barriers to meeting goals/advancing plan of care: none End of Shift Summary: Patient stayed on schedule with prn pain meds (Tramadol and oxycodone) throughout the shift. Encouraged using ice packs to help with pain and swelling. Patient's primapore dressing was changed to Aquacell AG and is clean, dry and intact. Patient has baseline numb/tingling, moderate humane officer, skin pink and warm with +2 pulses. Patient expects RN from [facility] to visit on Tuesday, May 24. Patient's friend will transport home. Medications including: oxycodone and tramadol were picked up [facility]. documented in this encounter OR Notes Op Note - Cyrus Polk M.D. - 05/18/2022 5:54 PM CDT STAFF: Cyrus Polk M.D. RESIDENT: Jenna Zaldivar M.D. PRE-OPERATIVE DIAGNOSIS Left dislocated reverse arthroplasty. POST-OPERATIVE DIAGNOSIS Left dislocated reverse arthroplasty. A assistant brand manager actively participated and was necessary for one [...] glenosphere, placement new humeral stem and tray, [id number] Cyrus Polk M.D. CT CT Job ID: [id number] documented in this encounter Miscellaneous Notes Hospital Course - Kaushik Cadena M.D. - 05/19/2022 12:18 PM CDT Surgery Information This Encounter Past Procedures (05/19/2021 to Today) Date Procedures Providers Location 05/18/2022 ARTHROPLASTY REPLACEMENT TOTAL SHOULDER. Cyrus Polk M.D.Wasserburger, Jory N, M.D.Markos, James R, M.D. [facility] OR Angie Mosquera was taken to the [...] with Differential, Blood (05/20/2022 3:43 AM CDT) [facility] Method Time Signature Hemoglobin 8.4 (L) [...] Address City/State/ZIP Code Phon e Number [facility] - [address] [place], [place] [address] [facility] [place] [address] [facility] [address] [facility] (ABNORMAL) CBC with Differential, Blood (05/19/2022 [...] Address City/State/ZIP Code Phon e Number [facility] - [address] [place], [place] [address] [facility] [place] [address] [facility] [address] [facility] (ABNORMAL) Basic Metabolic Panel (05/19/2022 3:26 [...] 05/19/2022 DTL Black/ mL/min/BSA 4:38 AM CDT Jamaican Comment: ----ADDITIONAL INFORMATION---- Estimated GFR [...] Address City/State/ZIP Code Phon e Number [facility] - [address] [place], [place] [address] [facility] [place] [address] [facility] [address] DX Shoulder [...] postoperative purposes. Jenna NIELSON DIAGNOSTIC IMAGING PROCE [facility] Surgical Pathology, Frozen Lab (05/18/2022 1:04 PM CDT) Component Value Ref Test Analysis Performed At [facility] Range Method Time Signature 05/20/2022 METH [...] Address City/State/ZIP Code Phon e Number [facility] - [address] [place], [place] [address] [facility] [place] [address] [facility] [address] Bacteria Cult, Aerobe / Anaerobe+Susc (05/18/2022 1:03 PM CDT) [facility] gist Method Time Signature Bacteria Cult, No growth 06/01/2022 DTL Aerobe/Anaerob after 14 6:02 PM CDT e+Susc days of incubation. Specimen Anatomical Collection Method Collection Time Receive d Time (Source) Location / / Volume Laterality Shoulder, Left 05/18/2022 1:03 PM 022 5:21 CDT PM CDT Comment: Specimen Source Site: Tissue #[address] [facility] - [facility] - 06/01/2022 6:02 PM CDT Bacterial Culture: Placed in Bactec aero bic and Bactec anaerobic bottles Cyrus Polk M.D. LAB MICROBIOLOGY - GENERAL O MARY Performing Organization Address City/[facility]/ZIP Code Phon e Number [facility] - [address] [place], [place] [address] [facility] [place] [place] [address] [facility] [address] [facility] Bacteria Cult, Aerobe / Anaerobe+Susc (05/18/2022 1:03 PM CDT) [facility] Method Time Signature Bacteria Cult, No growth 06/01/2022 DTL Aerobe/Anaerob after 14 6:02 PM CDT e+Susc days of incubation. Specimen Anatomical Collection Method Collection Time Receive d Time (Source) Location / / Volume Laterality Shoulder, Left 05/18/2022 1:03 PM 022 5:12 CDT PM CDT Comment: Specimen Source Site: Tissue #3 Narrative [facility] - 06/01/2022 6:02 PM CDT Bacterial Culture: Placed in Bactec aero bic and Bactec anaerobic bottles Cyrus Polk M.D. LAB MICROBIOLOGY - GENERAL O MARY Performing Organization Address City/[facility]/ZIP Code Phon e Number [facility] - [address] [place], [place] [address] [facility] [place] [place] [address] Bacteria Cult, Aerobe / Anaerobe+Susc (05/18/2022 1:03 PM CDT) [facility] Method Time Signature Bacteria Cult, No growth 06/01/2022 DTL Aerobe/Anaerob after 14 6:02 PM CDT e+Susc days of incubation. Specimen Anatomical Collection Method Collection Time Receive d Time (Source) Location / / Volume Laterality Shoulder, Left 05/18/2022 1:03 PM 022 5:07 CDT PM CDT Comment: Specimen Source Site: Tissue #[address] [facility] - 06/01/2022 6:02 PM CDT Bacterial Culture: Placed in Bactec aero bic and Bactec anaerobic bottles Cyrus Polk M.D. LAB MICROBIOLOGY - GENERAL O MARY Performing Organization Address City/[facility]/ZIP Code Phon e Number [facility] - [address] [place], [place] [address] [facility] [place] [address] [facility] [address] [facility] documented in this encounter Visit Diagnoses [...] 05/19/2022 05/20/2022 acetaminophen tablet 1,000 mg (TYLENOL) 8253 (Given - Provider: Corrie Toscano RBrittonN.)0667 (Given - Provider: Catalina B Mccloud, R.N.) [...] 1240 (Given - Provider: Ihsan Townsend APRN, UTILITY INSPECTOR) 2,000 mg (rounded from 1,652.5 mg = [...] 1240 (Given - Provider: Ihsan Townsend APRN, UTILITY INSPECTOR) 1,000 mg (1 g), intravenous, at 300 [...] mg of calcium, oral, Every 2 hour DC N, indigestion, Starting on Tue05/18/22 at 1608, [...] over 3 days 1 patch (TRANSDERM S FORMULA ROOM WORKER) (CANCELED) 1118 (Medication Applied - Provider: Cristy [...] documented as of this encounter Care Teams Cctv Technician Relationship Specialty Start Date End Date Elsewhere, Pcp PCP - General Family Medicine 12/25/21 documented as of this encounter
--- OUTSIDE RECORDS SUMMARY | 2022-08-08 22:57 | XMS_ITS | Encounter Summary ---
:1965 Author Organization [facility] Address [address] [place] [address] Care Team Providers Name Role Phone Elsewhere, Pcp Primary Care Provider Unavailable Reason for Visit Reason Comments Post-op Problem Encounter Details Date Type Department Care Team Description 06/03/2022 Clinical Communication Department of Cyrus Polk st-op Problem Orthopedic Surgery in Lilian Souza [place], [place] [address] [place] [address] [address] [place] [phone] Social History Tobacco Use Types Packs/Day Years [...] you attend judaism or Patient refused 2021 amish services? Do [...] Cyrus Polk M.D. CT CT Job ID: [id number] documented in this encounter Miscellaneous Notes Telephone [...] bent forward again. Please call her at [phone] to discuss. documented in this encounter Plan of Treatment Not on filedocumented as of this encounter Visit Diagnoses Not on filedocumented in this encounter Additional Health Concerns Assessment Noted Time PHQ-9 Depression Total Score: 16 02/11/2021 12:00 AM C DT documented as of this encounter Care Teams Acds Block 1 Operator Relationship Specialty Start Date End Date Elsewhere, Pcp PCP - General Family Medicine 12/25/21 documented as of this encounter
--- OUTSIDE RECORDS SUMMARY | 2022-08-08 22:57 | XMS_ITS | Encounter Summary ---
:1965 Author Organization [facility] Address [address] [place] [address] Care Team Providers Name Role Phone Elsewhere, Pcp Primary Care Provider Unavailable Encounter Details Date Type Department Care Team Description 06/15/2022 Ancillary Procedure Department of Demarcus Ernst, Radiology in [place], [place] [address] [facility] [address] [place] [phone] (Wo rk) Social History Tobacco Use Types [...] you attend scientology or Patient refused 2021 yazidi services? Do [...] documented as of this encounter Care Teams Light Air Defense Artillery Crewmember Relationship Specialty Start Date End Date Elsewhere, Pcp PCP - General Family Medicine 12/25/21 documented as of this encounter
--- OUTSIDE RECORDS SUMMARY | 2022-08-08 22:57 | XMS_ITS | Encounter Summary ---
:1965 Author Organization [facility] Address [address] [place] [address] Care Team Providers Name Role Phone Elsewhere, Pcp Primary Care Provider Unavailable Reason for Visit Reason Comments Followup [facility] Patient Encounter Details Date Type Department Care Team Description 06/15/2022 Clinical Communication Department of [facility], Robert gay ([facility] Neurology in [place], Lilian Patient/) [place], [facility] [address] [place], [place] [address] [place] [id number] [place], [place] [phone] (Work) [phone] Social History Tobacco Use Types Packs/Day Years [...] you attend sabianism or Patient refused 2021 latter-day services? Do [...] She did end up being seeing in [place] and had a CT scan. I told her to followup with them and make sure that the images are sent here for Dr. Diehl to review. Caller was made aware of the two- to four-business day call turnaround time. Date last seen: 11/17/2021 Future appointment: None scheduled Dx: Stroke Cerebrovascular Accident Personal History Allyssa Amaya, Hvac Journeyman 06/15/22 8:18 AM CDT documented in this encounter Plan of Treatment Not on filedocumented as of this encounter Visit Diagnoses Not on filedocumented in this encounter Additional Health Concerns Assessment Noted Time PHQ-9 Depression Total Score: 16 02/11/2021 12:00 AM C DT documented as of this encounter Care Teams Top Bottom Attaching Machine Operator Relationship Specialty Start Date End Date Elsewhere, Pcp PCP - General Family Medicine 12/25/21 documented as of this encounter
--- OUTSIDE RECORDS SUMMARY | 2022-08-08 22:57 | XMS_ITS | Encounter Summary ---
:1965 Author Organization [facility] Address [address] [place] [address] Care Team Providers Name Role Phone Elsewhere, Pcp Primary Care Provider Unavailable Encounter Details Date Type Department Care Team Description 05/18/2022 Ancillary Procedure Department of Anesthesiology, [place] Social History Tobacco Use Types Packs/Day Years [...] you attend christian or Patient refused 2021 mandaeism services? Do [...] documented as of this encounter Care Teams Strategic Debriefing Officer Relationship Specialty Start Date End Date Elsewhere, Pcp PCP - General Family Medicine 12/25/21 documented as of this encounter
--- OUTSIDE RECORDS SUMMARY | 2022-08-08 22:57 | XMS_ITS | Encounter Summary ---
:1965 Author Organization [facility] Address [address] [place] [address] Care Team Providers Name Role Phone Elsewhere, Pcp Primary Care Provider Unavailable Encounter Details Date Type Department Care Team Description 05/18/2022 Anesthesia Event RST SEBAS MORAN OR Kaushik Carpenter, [address] [facility] [address] [place] [phone] [facility] [phone] [place] [phone] (Wo rk) Anesthesia Record Procedure Summary Procedure [...] h andoff to the receiving staff during [facility] we 1. Identified the patient 2. Ident [...] by Placement Time: 1220 Ihsan Patel APRN, EYE DROPPER ASSEMBLER Ihsan Townsend APRN, (created via procedure EYE DROPPER ASSEMBLER documentation); Mask Ventilation: Easy mask; Type: Standard [...] you attend anglican or Patient refused 2021 mormonism services? Do [...] Procedure Summary Date: 05/18/22 Room / Location: [place] [address] / [facility] in [place], [place] Anesthesia Start: 1214 Anesthesia Stop: 1415 [...] ETT location: oral VL device: glide scope Windsor scope blade size: 3 Adult tube size: [...] diagnosis: Loose left total shoulder arthroplasty. Location: [place] [address] / [facility] in [place], [place] Providers: Cyrus Polk M.D. 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 The use of blood products not [...] procedure ar e in the results section. ME US GUIDE PLC NDL Routine 05/18/2022 11:24 Resu lts for this AM CDT procedure are i n the results section. ME INJ ANES BRACHIAL Routine 05/18/2022 11:24 Res ults for this PLEX AM CDT procedure are i n the results section. documented in this encounter Results LDA ANE ENDOTRACHEAL AIRWAY (05/18/2022 12:20 PM CDT) Narrative Ihsan Tonwsend APRN, CRNA - 05/18/2022 12:20 PM CDT [...] ETT location: oral VL device: glide scope Windsor scope blade size: 3 Adult tube size: [...] no complications Kaushik Carlos, BBritton ANESTHESIA ORDERABLES ME INJ ANES BRACHIAL PLEX, [...] as of this encounter Care Teams Form Grader Operator Relationship Specialty Start Date End Date Elsewhere, Pcp PCP - General Family Medicine 12/25/21 documented as of this encounter
--- OUTSIDE RECORDS SUMMARY | 2022-08-08 22:57 | XMS_ITS | Encounter Summary ---
:1965 Author Organization [facility] Address [address] [place] [address] Care Team Providers Name Role Phone Elsewhere, Pcp Primary Care Provider Unavailable Encounter Details Date Type Department Care Team Description 06/17/2022 Anesthesia Event Department of Radiology, Shantell Verma APRN, GINETTE, DNAP [address] [place] [phone] [facility]. [address] [place] [phone] [place] [id number] [place] [phone] Anesthesia Record Procedure Summary Procedure Name Responsible Anesthesia Start Anesthesia Stop Time Anesthesiologist Time MR BRAIN WITHOUT IV Sapphire Verma APRN, RETAIL BRANCH MANAGER, 06/17/22 1446 1702 CONTRAST DNAP Events Date [...] h andoff to the receiving staff during [facility] we 1. Identified the patient 2. [...] over 3 days 1 patch (TRANSDERM S BANQUET BARTENDER) 1 patch Lactated Ringers Free Drip 850 [...] you attend hinduism or Patient refused 2021 sikhism services? Do [...] Notes Anesthesia Postprocedure Evaluation - Maritza Friend, PATIENT DAY COORDINATOR, RETAIL BRANCH MANAGER, DNAP - 06/17/2022 5:09 PM CDT Patient: Angie Mosquera Procedure Summary Date: 06/17/22 Room / Location: Department of Radiology, [facility], in [place], [place] Anesthesia Start: 1446 Anesthesia Stop: 170 [...] ETT location: oral VL device: glide scope [place] scope blade size: 3 Adult tube size: [...] equina r/o compression Location: Department of Radiology, [facility], in [place], [place] Pertinent components of the patient's history [...] Vertebral Artery (HCC) (+) Dissection Vertebral Artery ([facility]) (+) Transient Ischemic Attack MSK/RHEUM (+) [...] with patient /legal guardian or through an market research interviewer. Risks/Benefits/Alternatives of Blood transfusion discussed with patient [...] ETT location: oral VL device: glide scope [place] scope blade size: 3 Adult tube size: [...] ?? Airway event: no complications Sapphire Luci PATIENT DAY COORDINATOR, RETAIL BRANCH MANAGER, DNAP ANESTHESIA ORDERABLES documented in this encounter [...] as of this encounter Care Teams Software Test Automation Engineer Relationship Specialty Start Date End Date Elsewhere, Pcp PCP - General Family Medicine 12/25/21 documented as of this encounter
--- OUTSIDE RECORDS SUMMARY | 2022-08-08 22:57 | XMS_ITS | Encounter Summary ---
:1965 Author Organization [facility] Address [address] [place] [address] Care Team Providers Name Role Phone Elsewhere, Pcp Primary Care Provider Unavailable Reason for Visit Reason Comments Scooter prescription Encounter Details Date Type Department Care Team Description 05/19/2022 Clinical Communication Department of Robert Diehl prescription Neurology in [place], [facility] [place], [place] [address] [place] [phone] [place], [place] [phone] (Work) [phone] Social History Tobacco Use Types Packs/Day Years [...] you attend congregation or Patient refused 2021 anglican services? Do [...] and is currently still admitted to [facility] until tomorrow. I encouraged her to reach [...] Stroke Cerebrovascular Accident Personal History Olivia Pedroza, Assistant Loan Processor 05/19/22 11:51 AM CDT documented in this encounter Plan of Treatment Not on filedocumented as of this encounter Visit Diagnoses Not on filedocumented in this encounter Additional Health Concerns Assessment Noted Time PHQ-9 Depression Total Score: 16 02/11/2021 12:00 AM C DT documented as of this encounter Care Teams Elevated Work Platform Operator Relationship Specialty Start Date End Date Elsewhere, Pcp PCP - General Family Medicine 12/25/21 documented as of this encounter
--- OUTSIDE RECORDS SUMMARY | 2022-08-08 22:57 | XMS_ITS | Encounter Summary ---
:1965 Author Organization [facility] Address [address] [place] [address] Care Team Providers Name Role Phone Elsewhere, Pcp Primary Care Provider Unavailable Encounter Details Date Type Department Care Team Description 05/18/2022 Surgery RST SEBAS MORAN OR Cyrus Polk, ARTHROPLASTY REPLACEMENT [address] [facility] [place] [phone] 200 [facility] [place] [phone] [place] [address] Social History Tobacco Use Types Packs/Day Years [...] you attend yarsanism or Patient refused 2021 church services? Do [...] or the highest technical, or vocational p GloNavram degree you have received? Sex Assigned at [...] AM CDT DISCHARGE SUMMARY BRIEF OVERVIEW Hospital: [facility] Discharge Provider: Cyrus Pokl M.D. Primary Team: RST Orthopedic Surgery - [...] R, M.D. RST ROEI OR DISCHARGE DISPOSITION [facility] Care [facility] [6] ACTIVE ISSUES REQUIRING FOLLOW UP This document serves as a prescription to continue physical therapy, medications, and labs or x-raysif ordered/required. If you have any questions or concerns about surgery or upcoming appointments, please do not hesitateto contact Dr. Polk's office at [phone] during regular business hours (8am-5pm M-F). For emergencies on the weekend or after hours, you may contact Dr. Polk's service via the [facility] dairy feed mixing operator at [phone]. Details for your 6 week follow-up appointment [...] to: Cyrus Polk MD Dept of Orthopedics [address], [address] None OUTPATIENT FOLLOW UP For appointment details [...] Cyrus Polk M.D.Jenna Zaldivar M.D.Kaushik Cadena M.D. [facility] SEBAS OR Angie Mosquera [...] Take 100 mg by mouth 6 02/27 AYDIN) 100 mg capsule 3 (three) times a [...] THC multivit-min/iron/folic/ Take 1 tablet by 0 [id number] (HAIR, SKIN AND mouth daily. NAILS ADVANCED [...] 6 pm, please page Jam service at [phone] For urgent matters from 6 pm until 6 am, please page Ortho [facility] [phone] Jane Nguyen PharmBrittonDBritton, R.Ph. - 05/19/2022 8:12 [...] at this time. Jane Nguyen Pharm.D., R.Ph. [phone] Kaushik Cadena M.D. - 05/19/2022 7:34 AM CDT SUBJECTIVE Angei Mosquera was examined in her hospital room [...] 6 pm, please page Jam service at [phone] For urgent matters from 6 pm until 6 am, please page Ortho Swisher at [facility] [phone] Paco Valentine - 05/18/2022 9:47 AM CDT Encounter: AM Admit Deanna Tradition: No church affiliation. Ms. Mosquera did not express any spiritual needs at this time. Plan: Will remain available for spiritual care as needed or requested. Chaplains can be contacted bypaging [phone] ([facility]). Rodrigo Preston, Pharm.D., R.Ph. - [...] Take 150 mg by mouth every morning. yypjbjvqbu-utvalwyufofij-ronm (ESGIC) 50-325-40 mg per tablet Past Week [...] 1 spray as needed. 5 mg THC multivit-min/iron/folic/vel487 (HAIR, SKIN AND NAILS ADVANCED ORAL) Past [...] (HCC) ??? Nicotine Dependence Unspecified ??? Other Train Director Current Drug Therapy ??? Direct Infection Of [...] Profile Lives With: Alone Receives Help From: shower room attendant, Family, Friend(s) ADL Assistance: Required assistance ADL Assistance Comments: Gets help from BRICK CHIMNEY SUPERVISOR for her bath/shower 3x/week, and for her meals IADL/Homemaking Assistance: Required assistance IADL/Homemaking Assistance Comments: Gets help for housecleaning Driving: Does not drive Driving Comments: takes her cane and medical alert with her. Occupational Role: On disability Occupational Role Comments: Previously worked at a [employer] Prior Mobility/Functional Transfers Level of [place]: Needs assistance Previous Transfer/Mobility Assistance Comments: Patient [...] mask during therapy session: yes Outcome Measures -[facility] Inpatient Short Form: AM-[facility] Basic Mobility (V.2) How much help from [...] 3-5 steps with a railing?: A Little AM-[facility] Basic Mobility (V.2) Raw Score: 18 -[facility] Basic Mobility (V.2) Standardized Score: 41.05 Interpretation: Clinicians answer the -[facility] Inpatient Short Form based on observed patient [...] Nurse Referral Reason: Discharge Planning Primary Language: Kittitian Charm Filter Operator Helper Services Used: No Person(s) present during interview: Person(s) Present During Interview: patient History of Present Illness #1 Primary Osteoarthritis Shoulder Left Social History Support System: children, case finisher/administrator social welfare, friends/neighbors and home care staff Patient's Home [...] Calm, Oriented Communication: Talks, Understands speaking, Understands Kittitian Shopping: Needs assistance Transportation: Support from family Medication Management: Needs assistance Housekeeping: Needs assistance Meal Prep: Needs assistance Managing Finances: Independent Assistive Devices: Grab bars - wall, Eyeglasses Services/Resources: Other (comment) Agency Name: [facility] Services Provided: BRICK CHIMNEY SUPERVISOR services 3x/week, nurse visits every other week Baseline Services/Resources Primary care clinic and provider: [facility] Phone: Fax: Anticipated Needs Functional Status: Transfer to/from bed, chair, etc., Bathing, Dressing, Grooming/hygeine, Housekeeping, Shopping, Meal preparation, Mobility, Medication set-up/administration, Transportation use (drive car, use taxi/bus) Services/Resources: Other (comment) Agency Name: [facility] Provided: BRICK CHIMNEY SUPERVISOR services 3x/week, nurse visits every other week Transportation Needs: Support from family Does the patient need discharge transport arranged?: No Ride and Caregiver Arranged: Yes Anticipated Discharge Destination: Home-Health Care [facility] ASSESSMENT / PLAN Assessment: The technology education instructor met with Angie Mosquera to discuss her current hospitalization and home goingneeds. The patient was unaccompanied. The patient was a reliable historian. The role of technology education instructor was reviewed. The patient reviewed her prior level of care and support system. The patient receives support from her son, friends and home care staff. Patient reported her son lives in the same apartment as her. She also stated getting BRICK CHIMNEY SUPERVISOR services 3x/week and a nurse visits her every other week. The patient described her living environment as a two bedroom apartment. Housekeeping, grocery shopping, meal prep, and other household responsibilities have previously been completed by patient, patient's son and patient's caregiver(s). technology education instructor discussed the patient's potential needs at [facility] based on their home setting, previous needs and responsibilities, homebound status, and relevantassessments with the patient. The patient will be safe and supported to return home with [facility] or previous services noted above when medically ready. Support will be provided by son, friends and home care staff. The patient demonstrated understanding when discussing her home going plans and anticipated needs. At this time, the care team anticipates the patient requires the following service(s) to be reconnected: home healthcare. The patient identified the following as their current vendor(s): [facility]. During this visit patient verbalized she is hoping to increase her BRICK CHIMNEY SUPERVISOR hours and also inq uired about getting a scooter to assist in her mobility. Patient went on to share she is unstable attimes due to her stroke history. She thought perhaps her neurology doctor would be able to help her get a scooter. RN CM recommended she follow up with the [facility] in regards to wanting more BRICK CHIMNEY SUPERVISOR hours. She was also recommended to follow up with her primary care provider to provide durable medical equipment justification for a scooter, as she is currently hospitalized for orthopedic surgery. Patient verbalized understanding. Patient informed RN ROWAN would be reconnecting her BRICK CHIMNEY SUPERVISOR services and nurse visits with [facility]. Patient agreeable to RN CM completing this and even provided RN CM the name and contact of her BRICK CHIMNEY SUPERVISOR and RN. After reviewing the patient's chart and meeting with the patient, the technology education instructor deemed the LACE+/readmission questions were not necessary. The patient reports understanding that she will dismiss from the hospital when medically stable. Pending hospital course and medical readiness, no barriers to dismissal have been identified at this time. Plan: Patient to discharge with home health care. [facility] Contact: RADHA Palomino ATTN: Georgette [...] directive. PRIMARY SERVICE: - Please provide a non-[facility] home health order for resumption of previous [...] dismissal will be provided by family. 3. technology education instructor recommended reaching out to family, friends, and neighbors for assistance. 4. technology education instructor provided information regarding the dismissal process. 5. technology education instructor placed or requested the following hospital-based consult orders and/or referrals:None. 6. technology education instructor will continue to assess for homegoing needs with the interdisciplinary team. 7. technology education instructor encouraged the patient to reach out with [...] falls. Patient will discharge to home with [facility] reconnect. Identify possible barriers to meeting goals/advancing plan of care: none End of Shift Summary: Patient stayed on schedule with prn pain meds (Tramadol and oxycodone) throughout the shift. Encouraged using ice packs to help with pain and swelling. Patient's primapore dressing was changed to Aquacell AG and is clean, dry and intact. Patient has baseline numb/tingling, moderate fur blender, skin pink and warm with +2 pulses. Patient expects RN from [facility] to visit on Tuesday, May 24. Patient's friend will transport home. Medications including: oxycodone and tramadol were picked up [facility]. documented in this encounter OR Notes Op Note - Cyrus Polk M.D. - 05/18/2022 5:54 PM CDT STAFF: Cyrus Polk M.D. RESIDENT: Jenna Zaldivar M.D. PRE-OPERATIVE DIAGNOSIS Left dislocated reverse arthroplasty. POST-OPERATIVE DIAGNOSIS Left dislocated reverse arthroplasty. A assistant business manager actively participated and was necessary for [...] glenosphere, placement new humeral stem and tray, [id number] Cyrus Polk M.D. CT CT Job ID: [id number] documented in this encounter Miscellaneous Notes Hospital Course - Kaushik Cadena M.D. - 05/19/2022 12:18 PM CDT Surgery Information This Encounter Past Procedures (05/19/2021 to Today) Date Procedures Providers Location 05/18/2022 ARTHROPLASTY REPLACEMENT TOTAL SHOULDER. Cyrus Polk M.D.Wasserburger, Jory N, M.D.Markos, James R, M.D. [facility] SEBAS OR Angie Mosquera [...] Routine 05/18/2022 1:03 Results fo r this AEROBE/ANAEROBE+CRARIE PM CDT procedur e are in C the results section. ARTHROPLASTY 05/18/2022 11:55 Shoulder Joint REPLACEMENT TOTAL AM CDT Disorder Left SHOULDER Case Notes Patient has multiple facial piercings that she is unable to remove ADULT OXYGEN THERAPY Routine 05/18/2022 10:57 AM CDT documented in this encounter Results (ABNORMAL) CBC with Differential, Blood (05/20/2022 3:43 AM CDT) [facility] Method Time Signature Hemoglobin 8.4 [...] City/State/ZIP Code Phon e Number [facility] - [address] [place] [address] [facility] [place] [address] [facility] 200 [facility] (ABNORMAL) CBC with Differential, Blood (05/19/2022 3:26 AM CDT) [facility] Method Time Signature Hemoglobin 7.6 (L) [...] City/State/ZIP Code Phon e Number [facility] - [address] [place], [place] [address] [facility] [place] [address] [facility] [address] (ABNORMAL) Basic [...] 05/19/2022 DTL Black/ mL/min/BSA 4:38 AM CDT Niuean Comment: ----ADDITIONAL INFORMATION---- Estimated GFR calculated using [...] City/State/ZIP Code Phon e Number [facility] - [address] [place], [place] [address] [facility] [place] [address] [facility] [address] DX [...] Jenna Zaldivar M.D. IMG DIAGNOSTIC IMAGING PROCE [facility] Surgical Pathology, Frozen Lab (05/18/2022 1:04 PM CDT) Component Value Ref Test Analysis Performed At [facility] Range Method Time Signature 05/20/2022 [...] LAB SURG PATH ORDERABLES Performing Organization Address City/[facility] Phon e Number [facility] - 200 [place], [place] [address] [facility] [place] [address] [facility] 200 [facility] Bacteria Cult, Aerobe / Anaerobe+Susc (05/18/2022 1:03 PM CDT) [facility] gist Method Time Signature Bacteria Cult, No growth 06/01/2022 DT Aerobe/Anaerob after 14 6:02 PM CDT e+Susc days of incubation. Specimen Anatomical Collection Method Collection Time Receive d Time (Source) Location / / Volume Laterality Shoulder, Left 05/18/2022 1:03 PM 022 5:21 CDT PM CDT Comment: Specimen Source Site: Tissue #[address] [facility] - [facility] - 06/01/2022 6:02 PM CDT Bacterial Culture: Placed in Bactec aero bic and Bactec anaerobic bottles Cyrus Polk M.D. LAB MICROBIOLOGY - GENERAL O RDERABLES Performing Organization Address City/[facility]/ZIP Code Phon e Number [facility] - [address] [place], [place] [address] [place], [place] [id number] [place] [address] 200 [facility] Bacteria Cult, Aerobe / Anaerobe+Susc (05/18/2022 1:03 PM CDT) [facility] Method Time Signature Bacteria Cult, No growth 06/01/2022 DTL Aerobe/Anaerob after 14 6:02 PM CDT e+Susc days of incubation. Specimen Anatomical Collection Method Collection Time Receive d Time (Source) Location / / Volume Laterality Shoulder, Left 05/18/2022 1:03 PM 022 5:12 CDT PM CDT Comment: Specimen Source Site: Tissue #3 Narrative [facility] - 06/01/2022 6:02 PM CDT Bacterial Culture: Placed in Bactec aero bic and Bactec anaerobic bottles Cyrus Polk M.D. LAB MICROBIOLOGY - GENERAL O MARY Performing Organization Address City/[facility]/ZIP Code Phon e Number [id number] [place] [address] Bacteria Cult, Aerobe / Anaerobe+Susc (05/18/2022 1:03 PM CDT) [facility] Method Time Signature Bacteria Cult, No growth 06/01/2022 DTL Aerobe/Anaerob after 14 6:02 PM CDT e+Susc days of incubation. Specimen Anatomical Collection Method Collection Time Receive d Time (Source) Location / / Volume Laterality Shoulder, Left 05/18/2022 1:03 PM 022 5:07 CDT PM CDT Comment: Specimen Source Site: Tissue #2 Narrative [facility] - 06/01/2022 6:02 PM CDT Bacterial Culture: Placed in Bactec aero bic and Bactec anaerobic bottles Cyrus Polk M.D. LAB MICROBIOLOGY - GENERAL O MARY Performing Organization Address City/[facility] Phon e Number [id number] [place] [address] documented in this encounter Visit Diagnoses Diagnosis [...] 05/19/2022 05/20/2022 acetaminophen tablet 1,000 mg (TYLENOL) 3288 (Given - Provider: Corrie Toscano RBrittonN.)1955 (Given - Provider: Catalina Mccloud RBrittonN.) 0511 (Given - Provider: Catalina Mccloud R.N.)1159 (Given - Provider: Isaura Vu RBrittonN.)1725 (Given [...] 1240 (Given - Provider: Ihsan Townsend APRN, GENERAL FARM HAND) 2,000 mg (rounded from 1,652.5 mg = [...] (COMPLETED) 1702 ( Given - Provider: Corrie oTscano R.N.)2124 (Given - Provider: Jere Levy R.N.) [...] M.S.N., R.N., O.C.N. - Comment: pt request) 0932 (Given - Provider: Isaura Vu RBetsy) 300 [...] mg of calcium, oral, Every 2 hour MI N, indigestion, Starting on Tue05/18/22 at 1608, [...] over 3 days 1 patch (TRANSDERM S JIG INSPECTOR) (CANCELED) 1118 (Medication Applied - Provider: Cristy [...] documented as of this encounter Care Teams Bath Solution Maker Relationship Specialty Start Date End Date Elsewhere, Pcp PCP - General Family Medicine 12/25/21 documented as of this encounter
--- OUTSIDE RECORDS SUMMARY | 2022-08-08 22:57 | XMS_ITS | Encounter Summary ---
:1965 Author Organization [facility] Address [address] [place] [address] Care Team Providers Name Role Phone Elsewhere, Pcp Primary Care Provider Unavailable Encounter Details Date Type Department Care Team Description 06/15/2022 Ancillary Procedure Department of Demarcus Ernst, Radiology in [place], [place] [address] PAREKH [address] [place] [address] [phone] (Wo rk) Social History Tobacco Use Types [...] you attend religion or Patient refused 2021 uatsdin services? Do [...] documented as of this encounter Care Teams Worm Packer Relationship Specialty Start Date End Date Elsewhere, Pcp PCP - General Family Medicine 12/25/21 documented as of this encounter
--- OUTSIDE RECORDS SUMMARY | 2022-08-08 22:57 | XMS_ITS | Encounter Summary ---
:1965 Author Organization [facility] Address 200 [place] [address] Care Team Providers Name Role Phone Elsewhere, Pcp Primary Care Provider Unavailable Encounter Details Date Type Department Care Team Description 06/17/2022 Orders Only RST HIM Latrice, Chronic Pain Syndrome (Prima ry Dx); 200 [facility] Lilian Hughes Transient Ischemic Attack; [place], [place] [address] [facility] Fibromyalgia [address] [place] [address] Social History Tobacco Use Types Packs/Day Years [...] you attend mandaen or Patient refused 2021 restorationism services? Do [...] documented as of this encounter Care Teams Play Therapist Relationship Specialty Start Date End Date Elsewhere, Pcp PCP - General Family Medicine 12/25/21 documented as of this encounter
--- OUTSIDE RECORDS SUMMARY | 2022-08-08 22:58 | XMS_ITS | Encounter Summary ---
:1965 Author Organization [facility] Address [address] [place] [address] Care Team Providers Name Role Phone Elsewhere, Pcp Primary Care Provider Unavailable Reason for Visit Outpatient (Routine) - Closed Specialty Diagnoses / Procedures Referred By Contact Refer red To Contact Orthopedic Surgery Diagnoses Pain Shoulder Left Preoperative Exam Alfredo Herrera, [facility] OP.A.-C [address] [place] [address] Referral ID Status Reason Start Date Expiration Date Visits Requ ested Visits Authorized [id number] Closed 04/22/2022 04/22/2023 1 1 Encounter Details Date Type Department Care Team Description 05/17/2022 Office Visit Department of Cyrus Polk, Raul Shou lder Left; Orthopedic Surgery in M.D. Preoperative Exam [place], [place] [address] [facility] [address] [place] [address] [phone] Social History Tobacco Use Types Packs/Day Years [...] you attend anglican or Patient refused 2021 religion services? Do you belong to any clubs or No 05/17/2022 organizations such as anglican groups, unions, fraPHmHealth or athletic groups, or school groups? How [...] surgery may involve the use of a bio medical technician made by a [employer] I or one of my partners have collaborated to design, develop, or improve orthopedic implants, instruments, or products. Both the [facility] and the individual surgeons involved receive royalty payments from the use of those specific devices at other institutions, but no royalties or any other payments are paid for the use of those devices with any [facility] patient. The clinical rationale for the use of those devices as well as the availability and applicability of alternative devices was reviewed. He understands that the final decision for the use of a specific bio medical technician often is made at the time of [...] documented as of this encounter Care Teams Tufter Operator Relationship Specialty Start Date End Date Elsewhere, Pcp PCP - General Family Medicine 12/25/21 documented as of this encounter
--- OUTSIDE RECORDS SUMMARY | 2022-08-08 22:58 | XMS_ITS | Encounter Summary ---
:1965 Author Organization [facility] Address [address] [place] [address] Care Team Providers Name Role Phone Elsewhere, Pcp Primary Care Provider Unavailable Reason for Referral Outpatient (Routine) - Closed Specialty Diagnoses / Procedures Referred By Contact Refer red To Contact Diagnoses Arthroplasty Total Shoulder Replacement Status Post Left Alfredo Herrera O.P.A.-C. [facility] Procedures DX Shoulder Left Ingrowth Series [address] Views [address] [place] [phone] Referral ID Status Reason Start Date Expiration Date Visits Requ ested Visits Authorized [id number] Closed 02/25/2022 02/25/2023 1 1 Reason for Visit Outpatient (Routine) - Closed Specialty Diagnoses / Procedures Referred By Contact Refer red To Contact Diagnoses Arthroplasty Total Shoulder Replacement Status Post Left Alfredo Herrera O.P.A.-C. [facility] Procedures DX Shoulder Left Ingrowth Series 5 Views [address] [place] [phone] Referral ID Status Reason Start Date Expiration Date Visits Requ ested Visits Authorized [id number] Closed 02/25/2022 02/25/2023 1 1 Encounter Details Date Type Department Care Team Description 04/02/2022 Hospital Encounter Department of Alfredo Herrera Total Radiology, Anh Gonzales [facility], in [address] [place] [address] Status Post Left [facility] [address] [place], [place] (Work) [address] [phone] Social History Tobacco Use Types Packs/Day Years [...] you attend uatsdin or Patient refused 2021 amish services? Do [...] THC multivit-min/iron/folic/ Take 1 tablet by 0 [id number] (HAIR, SKIN AND mouth daily. NAILS ADVANCED ORAL) naloxone (NARCAN) 4 Administer 1 spray 0 03/26/20 22 mg/actuation nasal spray into one nostril as directed. SPRAY 0.1 MILLILITER BY INTRANASAL ROUTE IN 1 NOSTRIL MAY REPEAT DOSE EVERY 2-3 MINUTES NEEDED ALTERNATING NOSTRILS oxyCODONE (ROXICODONE) Take 10 mg by mouth [...] mg capsule 2 (two) times a day. acetaminophen (TYLENOL) Take 2 capsules 0 022 [...] 10 Indication: Acute Pain, Acute Pain Exception. pregabalin (LYRICA) 300 Take 600 mg by [...] as of this encounter Care Teams Heat Treat Furnace Operator Relationship Specialty Start Date End Date Elsewhere, Pcp PCP - General Family Medicine 12/25/21 documented as of this encounter
--- OUTSIDE RECORDS SUMMARY | 2022-08-08 22:58 | XMS_ITS | Encounter Summary ---
:1965 Author Organization [facility] Address [address] [place] [address] Care Team Providers Name Role Phone Elsewhere, Pcp Primary Care Provider Unavailable Encounter Details Date Type Department Care Team Description 04/21/2022 Clinical Communication Department of Cyrus Polk Orthopedic Surgery in Lilian Souza [place], [place] [address] [place] [address] 200 [place] [phone] [phone] Social History Tobacco Use Types Packs/Day Years [...] you attend mandaen or Patient refused 2021 spiritism services? Do [...] something else is going on . Angie [phone] documented in this encounter Plan of Treatment Not on filedocumented as of this encounter Visit Diagnoses Not on filedocumented in this encounter Additional Health Concerns Assessment Noted Time PHQ-9 Depression Total Score: 16 02/11/2021 12:00 AM C DT documented as of this encounter Care Teams County Attorney Relationship Specialty Start Date End Date Elsewhere, Pcp PCP - General Family Medicine 12/25/21 documented as of this encounter
--- OUTSIDE RECORDS SUMMARY | 2022-08-08 22:58 | XMS_ITS | Encounter Summary ---
:1965 Author Organization [facility] Address [address] [place] [address] Care Team Providers Name Role Phone Elsewhere, Pcp Primary Care Provider Unavailable Reason for Referral Outpatient (Routine) - Closed Specialty Diagnoses / Procedures Referred By Contact Refer red To Contact Social Work Diagnoses Pain Shoulder Left Preoperative Exam Jenna Zaldivar [place] M.D. Referral ID Status Reason Start Date Expiration Date Visits Requ ested Visits Authorized [id number] Closed 05/10/2022 05/10/2023 1 1 Reason for Visit Reason Comments Pre-visit Testing Orders Encounter Details Date Type Department Care Team Description 05/07/2022 Clinical Communication Department of Jam, Pre- visit Testing Orthopedic Surgery Cyrus Souza M.D. Orders in [address] [place] [phone] [place], [place] [phone] (Work) [phone] Social History Tobacco Use Types Packs/Day Years [...] you attend islam or Patient refused 2021 evangelical services? Do [...] Name Type Priority Associated Diagnoses Order [facility] Social Work - Outpatient Referral Routine Pain Shoulde r Left Expected: General consult Preoperative Exam 022 (clinic) (Approximate), Expires: 08/07/2023 documented as of this encounter Visit Diagnoses Diagnosis Pain Shoulder Left - Primary Preoperative Exam documented in this encounter Additional Health Concerns Assessment Noted Time PHQ-9 Depression Total Score: 16 02/11/2021 12:00 AM C DT documented as of this encounter Care Teams Art Display Maker Relationship Specialty Start Date End Date Elsewhere, Pcp PCP - General Family Medicine 12/25/21 documented as of this encounter
--- OUTSIDE RECORDS SUMMARY | 2022-08-08 22:58 | XMS_ITS | Encounter Summary ---
:1965 Author Organization [facility] Address [address] [place] [address] Care Team Providers Name Role Phone Elsewhere, Pcp Primary Care Provider Unavailable Reason for Referral Outpatient (Routine) - Closed Specialty Diagnoses / Procedures Referred By Contact Refer red To Contact Diagnoses Painful Total Joint Arthroplasty Initial (HCC) Alfredo Herrera [place] Procedures ORS US-Guided aspiration/injection O.P.A.-C. 200 [place] [address] Referral ID Status Reason Start Date Expiration Date Visits Requ ested Visits Authorized [id number] Closed 04/02/2022 04/02/2023 1 1 MRI/CAT/PET Scan (Routine) - Closed Specialty Diagnoses / Procedures Referred By Contact Refer red To Contact Radiology Diagnoses Painful Total Joint Arthroplasty Initial ([facility]) Alfredo Herrera [place] Procedures CT Shoulder Left without IV Contrast O.P.A.-C. 200 [place] [address] Referral ID Status Reason Start Date Expiration Date Visits Requ ested Visits Authorized [id number] Closed 04/02/2022 04/02/2023 1 1 Reason for Visit Outpatient (Routine) - Closed Specialty Diagnoses / Procedures Referred By Contact Refer red To Contact Orthopedic Surgery Diagnoses Arthroplasty Total Shoulder Replacement Status Post Left Alfredo Herrera [place] O.P.ABritton-C. [address] [place] [address] Referral ID Status Reason Start Date Expiration Date Visits Requ ested Visits Authorized [id number] Closed 02/25/2022 02/25/2023 1 1 Encounter Details Date Type Department Care Team Description 04/02/2022 Office Visit Department of Cyrus Polk Arthroplasty Total Shoulder Replacement Status Post Left; Orthopedic Surgery in [place] Souza Painful Total Joint Arthroplasty Initial (HCC) [place], [place] [address] [facility] [address] [place] [phone] Social History Tobacco Use Types Packs/Day Years [...] you attend restorationism or Patient refused 2021 mormonism services? Do [...] are done to review the results. Cyrus Plok M.D. CT CT Job ID: [id number] documented in this encounter Plan of Treatment [...] Organization Address City/State/ZIP Code Phon e Number [facility] - [address] [place] [phone] [facility] [place] [address] [facility] 200 [facility] (ABNORMAL) CBC without Differential (04/14/2022 10:42 AM CDT) [facility] Method Time Signature Hemoglobin 8.6 (L) [...] Organization Address City/State/ZIP Code Phon e Number [facility] - [address] [place], [place] [address] [facility] [place] [address] [facility] [address] OR ARTHCS ASP/INJ MJR JT W US (04/14/2022 [...] documented as of this encounter Care Teams Bioinformatics Scientist Relationship Specialty Start Date End Date Elsewhere, Pcp PCP - General Family Medicine 12/25/21 documented as of this encounter
--- OUTSIDE RECORDS SUMMARY | 2022-08-08 22:58 | XMS_ITS | Encounter Summary ---
:1965 Author Organization [facility] Address [address] [place] [address] Care Team Providers Name Role Phone Elsewhere, Pcp Primary Care Provider Unavailable Reason for Visit Outpatient (Routine) - Closed Specialty Diagnoses / Procedures Referred By Contact Refer red To Contact Diagnoses Painful Total Joint Arthroplasty Initial ([facility]) Alfredo Herrera [place] Procedures ORS US-Guided aspiration/injection O.P.A.-C. [address] [place] [phone] Referral ID Status Reason Start Date Expiration Date Visits Requ ested Visits Authorized [id number] Closed 04/02/2022 04/02/2023 1 1 Encounter Details Date Type Department Care Team Description 04/14/2022 Procedure visit Department of Jey Monzon To beto Joint Orthopedic Surgery in Lilian Celaya Arthroplasty Initial [place], [place] [address] [place] [address] ([facility]) [address] [place] [phone] Social History Tobacco Use Types Packs/Day Years [...] you attend latter-day or Patient refused 2021 jew services? Do you belong to any clubs or No 05/17/2022 organizations such as latter-day groups, unions, fraNONO or athletic groups, or school groups? How [...] was performed by Carmelo Guo M.D., M.S. ([phone]). HISTORY: The patient was recently evaluated for [...] and sterile ultrasound gel were used. Machine: Zero Carbon Food Transducer: 6-15 MHz linear transducer. Patient position: [...] Mosquera Barriers to learning: None Preferred language: Nepali Learning preferences include: Seeing and doing. Discussed: [...] preparation: chlorhexidine/alcohol Images have been archived in [employer]: click the 'Dept Filter' button in [employer], then the 'Clear (ShowAll)' button, then OK. [...] procedure a re in the results section. IN ARTHCS ASP/INJ Routine 04/14/2022 9:30 AM Painful Total Aliza nt Results for this MJR JT W US CDT Arthroplasty Initial procedu re are in (HCC) the results section. documented in this encounter Results Bacteria Cult, Aerobe / Anaerobe+Susc (04/14/2022 9:35 AM CDT) RunRev Method Time Signature Bacteria Cult, No growth 04/28/2022 DTL Aerobe/Anaerob after 14 11:02 AM CDT e+Susc days of incubation. Specimen Anatomical Collection Method Collection Time Receive d Time (Source) Location / / Volume Laterality Synovial Fluid, 04/14/2022 9:35 AM 2021 Left Shoulder CDT 10:18 AM CDT Comment: Specimen Source Site: Aspirate Narrative [facility] - 04/28/2022 11:02 AM CDT Bacterial Culture: Received Bactec aerob ic and Bactec anaerobic bottles Alfredo Kamara LAB MICROBIOLOGY - GENERAL O RDERABLES Performing Organization Address City/State/ZIP Code Phon e Number [facility] - [address] [place] [phone] [facility] [place] [address] [facility] 200 [facility] Cell Count and Differential, Body Fluid (04/14/2022 9:35 AM CDT) RunRev Method Time Signature Fluid Type Right 04/14/2022 [...] performance characteri stics were determined by [facility] in a manner co nsistent [...] [facility] - [address] [place], [place] [address] [place] [address] [facility] [address] [place] ARTHCS ASP/INJ MJR JT W US (04/14/2022 [...] 3. Priya Blue, L.A.T., A.T.C. 4. Pete aKye, L.A.T., A.T.C. PROCEDURE DETAILS Procedure Location shoulder [...] documented as of this encounter Care Teams Highway Patrol Commander Relationship Specialty Start Date End Date Elsewhere, Pcp PCP - General Family Medicine 12/25/21 documented as of this encounter
--- OUTSIDE RECORDS SUMMARY | 2022-08-08 22:58 | XMS_ITS | Encounter Summary ---
:1965 Author Organization [facility] Address [address] [place] [address] Care Team Providers Name Role Phone Elsewhere, Pcp Primary Care Provider Unavailable Reason for Visit Reason Comments pre op orders Encounter Details Date Type Department Care Team Description 04/02/2022 Clinical Communication Department of Cyrus Polk op orders Orthopedic Surgery in Lilian Souza [place], [place] [address] [place] [address] 200 [place] [phone] [phone] Social History Tobacco Use Types Packs/Day Years [...] you attend gnosticism or Patient refused 2021 church services? Do [...] documented as of this encounter Care Teams Continuous Process Coffee Roaster Relationship Specialty Start Date End Date Elsewhere, Pcp PCP - General Family Medicine 12/25/21 documented as of this encounter
--- OUTSIDE RECORDS SUMMARY | 2022-08-08 22:58 | XMS_ITS | Encounter Summary ---
:1965 Author Organization [facility] Address [address] [place] [address] Care Team Providers Name Role Phone Elsewhere, Pcp Primary Care Provider Unavailable Encounter Details Date Type Department Care Team Description 03/19/2022 Clinical Communication Department of Cyrus Polk Orthopedic Surgery in [place] Souza [place], [place] [address] [place] [address] 200 [place] [address] [phone] Social History Tobacco Use Types Packs/Day Years [...] you attend nondenominational or Patient refused 2021 yazidi services? Do [...] Have discussed this situation with the O.R. cloth shrinking supervisor, the A.M. admission Systems Planner, and the Outpatient Systems Planner and no one can locate this remote [...] Please return a call to her at [phone] documented in this encounter Plan of Treatment Not on filedocumented as of this encounter Visit Diagnoses Not on filedocumented in this encounter Additional Health Concerns Assessment Noted Time PHQ-9 Depression Total Score: 16 02/11/2021 12:00 AM C DT documented as of this encounter Care Teams Die Repairer Forging Relationship Specialty Start Date End Date Elsewhere, Pcp PCP - General Family Medicine 12/25/21 documented as of this encounter
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
--- OUTSIDE RECORDS SUMMARY | 2022-08-08 22:58 | XMS_ITS | Encounter Summary ---
:1965 Author Organization [facility] Address [address] [place] [address] Care Team Providers Name Role Phone Elsewhere, Pcp Primary Care Provider Unavailable Reason for Referral Outpatient (Routine) - Closed Specialty Diagnoses / Procedures Referred By Contact Refer red To Contact Orthopedic Surgery Diagnoses Pain Shoulder Left [facility] 200 [place] [address] Referral ID Status Reason Start Date Expiration Date Visits Requ ested Visits Authorized [id number] Closed 04/22/2022 04/22/2023 1 1 Reason for Visit Reason Comments pre op orders Encounter Details Date Type Department Care Team Description 04/22/2022 Clinical Communication Department of Cyrus Polk op orders Orthopedic Surgery in Lilian Souza [place], [place] [address] [place] [address] [place] [phone] Social History Tobacco Use Types Packs/Day Years [...] you attend synagogue or Patient refused 2021 quaker services? Do you belong to any clubs or No 05/17/2022 organizations such as synagogue groups, unions, fraBioCurity or athletic groups, or school groups? How [...] 05/17/2022 DTL Black/ mL/min/BSA 12:12 PM CDT Indonesian Comment: ----ADDITIONAL INFORMATION---- Estimated GFR calculated using [...] City/State/ZIP Code Phon e Number [facility] - [address] [place], [place] [address] [facility] [place] [address] [facility] [address] Type and Screen (with reflex Antibody ID) (05/17/2022 10:50 AM CDT) [facility] [email or web address] Method Time Signature ABORh A Neg Not 05/17/2022 ETRM applicable 7:10 PM CDT Antibody Negative Negative 05/17/2022 ETRM Screen 7:22 PM CDT Type & Screen 07/15/2022 05/17/2022 ETRM Expiration 23:59 7:10 PM CDT Testing [place] DEFAULT 05/17/2022 ETRM Location 12:24 PM CDT Specimen Anatomical Collection Method Collection Time Receive d Time (Source) Location / / Volume Laterality Blood (Blood, 05/17/2022 10:50 05/17/2022 Venous) AM CDT 12:24 PM CDT Alfredo Kamara LAB BLOOD BANK TEST ORDERABL ES Performing Organization Address City/State/ZIP Code Phon e Number [facility] - 200 [place], [place] [address] [facility] [place] [address] [facility] 200 [address] [facility] (ABNORMAL) CBC with Differential, Blood (05/17/2022 10:50 AM CDT) [facility] [email or web address] Method Time Signature Hemoglobin 9.2 (L) 11.6 [...] City/State/ZIP Code Phon e Number [facility] - 200 [place], [place] [address] [facility] [place] [address] [facility] 200 [facility] SARS Coronavirus 2, Molecular Detection, PCR, Varies Asymptomatic (05/17/2022 10:26 AM CDT) [facility] Method Time Signature COVID-19, Swab, 05/17/2022 DTL [...] ----ADDITIONAL INFORMATION---- This RT-PCR test using the BrandCont SARS-Co V-2 Assay ( [employer].) performed on the BrandCont Two Module System has received Emergency Use Authorization (EUA) by the U.S. Food and Drug Administration, and is modified from the digital recruiter's instructions with a bridging study. Performance characteristics were verifie d by [facility] in a manner consistent with CLIA requirements. Visit the CDC website: https://www.cdc.g ov/coronavirus/ for the most recent guidelines on [facility] virus testing. Fact Sheet for Healthcare Providers: https://www.fda.gov/media/977629/downloa d Fact Sheet for Patients: https://www.fda.gov/media/031630/downloa d Specimen Anatomical Collection Method Collection Time Receive d Time (Source) Location / / Volume Laterality Varies 05/17/2022 10:26 05/17/2022 (Nasopharynx) AM CDT 10:52 AM CDT Alfredo Kamara LAB MICROBIOLOGY - GENERAL O RDERABLES Performing Organization Address City/State/ZIP Code Phon e Number [facility] - [address] [place], [place] [address] [facility] [place] [address] [facility] [address] documented in this encounter Visit Diagnoses Diagnosis Pain Shoulder Left - Primary Preoperative Exam documented in this encounter Additional Health Concerns Assessment Noted Time PHQ-9 Depression Total Score: 16 02/11/2021 12:00 AM C DT documented as of this encounter Care Teams Barrel Bung Remover And Dumper Relationship Specialty Start Date End Date Elsewhere, Pcp PCP - General Family Medicine 12/25/21 documented as of this encounter
--- OUTSIDE RECORDS SUMMARY | 2022-08-08 22:58 | XMS_ITS | Encounter Summary ---
:1965 Author Organization [facility] Address [address] [place] [address] Care Team Providers Name Role Phone Elsewhere, Pcp Primary Care Provider Unavailable Encounter Details Date Type Department Care Team Description 04/14/2022 Hospital Encounter Department of Alfredo Herrera Total Shoulder Replacement Status Post Left; Laboratory Medicine A, O.P.A.-C. Painful Total Joint Arthroplasty Initial (HCC) and Pathology, [address] [place] [address], in [place] [phone] [place] [phone] [place] [address] (Work) [place], [place] [phone] (Fax) [phone] Social History Tobacco Use Types Packs/Day Years [...] you attend anglican or Patient refused 2021 gnosticist services? Do [...] THC multivit-min/iron/folic/ Take 1 tablet by 0 [id number] (HAIR, SKIN AND mouth daily. NAILS ADVANCED [...] CDT Arthroplasty Initial proc edure are in ([facility]) the results section. C-REACTIVE PROTEIN [...] Kamara LAB BLOOD ADD-ON Performing Organization Address City/State/[facility] Code Phon e Number [facility] - 200 [place], [place] [address] [facility] [place] [address] [facility] 200 [facility] (ABNORMAL) CBC without Differential (04/14/2022 10:42 [...] City/State/ZIP Code Phon e Number [facility] - [address] [place], [place] [address] [facility] [place] [address] [facility] [address] documented in this encounter Visit Diagnoses Diagnosis Arthroplasty Total Shoulder Replacement Status Post Left Painful Total Joint Arthroplasty Initial (HCC) documented in this encounter Additional Health Concerns Assessment Noted Time PHQ-9 Depression Total Score: 16 02/11/2021 12:00 AM C DT documented as of this encounter Care Teams Integration Aide Relationship Specialty Start Date End Date Elsewhere, Pcp PCP - General Family Medicine 12/25/21 documented as of this encounter
--- OUTSIDE RECORDS SUMMARY | 2022-08-08 22:58 | XMS_ITS | Encounter Summary ---
:1965 Author Organization [facility] Address [address] [place] [address] Care Team Providers Name Role Phone Elsewhere, Pcp Primary Care Provider Unavailable Encounter Details Date Type Department Care Team Description 05/11/2022 Clinical Communication Department of Cyrus Polk Orthopedic Surgery in Lilian Souza [place], [place] [address] [place] [address] 200 [place] [phone] Social History Tobacco Use Types Packs/Day Years [...] you attend mosque or Patient refused 2021 oriental orthodox services? [...] documented as of this encounter Care Teams Floors Buffer Relationship Specialty Start Date End Date Elsewhere, Pcp PCP - General Family Medicine 12/25/21 documented as of this encounter
--- OUTSIDE RECORDS SUMMARY | 2022-08-08 22:58 | XMS_ITS | Encounter Summary ---
:1965 Author Organization [facility] Address 200 [place] [address] Care Team Providers Name Role Phone Elsewhere, Pcp Primary Care Provider Unavailable Reason for Visit Reason Comments Discharge Planning Discharge Planning Encounter Details Date Type Department Care Team Description 05/06/2022 Clinical Communication Department of Kaushik Portillo Di scharge Planning Orthopedic Surgery R.N. (Discharge in [place] [address] [facility] Planning) [place], [place] [address] [place] [address] [place], [place] [phone] (Work) [phone] Social History Tobacco Use Types Packs/Day Years [...] you attend faith or Patient refused 2021 protestant services? Do [...] home. 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 I encourage Ortho.Enamel Burner to contact this patient, prior to surgery, [...] documented as of this encounter Care Teams Research Spec Relationship Specialty Start Date End Date Elsewhere, Pcp PCP - General Family Medicine 12/25/21 documented as of this encounter
--- OUTSIDE RECORDS SUMMARY | 2022-08-08 22:58 | XMS_ITS | Encounter Summary ---
:1965 Author Organization [facility] Address [address] [place] [address] Care Team Providers Name Role Phone Elsewhere, Pcp Primary Care Provider Unavailable Encounter Details Date Type Department Care Team Description 05/17/2022 Hospital Encounter Department of Alfredo Herrera Preo perative Exam Laboratory Medicine O.P.A.-C. and Pathology, [place] 200 [facility], in [place], [place] [address] [place] [address] [place], [place] (Work) [phone] Social History Tobacco Use Types Packs/Day Years [...] you attend orthodoxy or Patient refused 2021 samaritan services? Do [...] THC multivit-min/iron/folic/ Take 1 tablet by 0 [id number] (HAIR, SKIN AND mouth daily. NAILS ADVANCED [...] times a 8.6-50 mg per tablet day. SUMAtriptan (IMITREX) 5 [...] CDT Manual Absolute 2.24 1.56 - 05/17/2022 [facility] Neutrophil Count 6.45 1:04 PM [...] Reviewed by: Priti 05/17/2022 1:04 PM CDT [facility] Specimen Anatomical Collection Method Collection Time Receive d Time (Source) Location / / Volume Laterality Blood 05/17/2022 10:50 05/17/2022 AM CDT 11:30 AM CDT Alfredo Kamara LAB BLOOD ADD-ON Performing Organization Address City/State/ZIP Code Phon e Number [facility] - [address] [place], [place] [address] [place] [address] [facility] [address] Basic Metabolic Panel (05/17/2022 [...] 05/17/2022 DTL Black/ mL/min/BSA 12:12 PM CDT German Comment: ----ADDITIONAL INFORMATION---- Estimated GFR calculated [...] [facility] [address] [place], [place] [address] [facility] [place] [address] [facility] [address] Type and Screen (with reflex Antibody ID) (05/17/2022 10:50 AM CDT) [facility] Method Time Signature ABORh A [...] [facility] - [address] [place], [place] [address] [facility] [place] [address] [facility] [address] [facility] (ABNORMAL) CBC with Differential, Blood (05/17/2022 10:50 AM CDT) [facility] Method Time Signature Hemoglobin 9.2 (L) 11.6 [...] [facility] - [address] [place], [place] [address] [facility] [place] [address] [facility] [address] documented in this encounter Visit Diagnoses Diagnosis Preoperative Exam documented in this encounter Additional Health Concerns Infection Onset Date Last Indicated Resolved Time COVID19 Pending 05/17/2022 05/17/2022 05/17/2022 2:34 PM CDT Assessment Noted Time PHQ-9 Depression Total Score: 16 02/11/2021 12:00 AM C DT documented as of this encounter Care Teams Certified Court/Medical Interpreter Relationship Specialty Start Date End Date Elsewhere, Pcp PCP - General Family Medicine 12/25/21 documented as of this encounter
--- OUTSIDE RECORDS SUMMARY | 2022-08-08 22:58 | XMS_ITS | Encounter Summary ---
:1965 Author Organization [facility] Address [address] [place] [address] Care Team Providers Name Role Phone Elsewhere, Pcp Primary Care Provider Unavailable Encounter Details Date Type Department Care Team Description 05/03/2022 Hospital Encounter Department of Laboratory Shauna Rubin, Anemia Medicine and Pathology, [facility] C.N.BrittonFormerly [facility] in M.S.N. [address] [place] [phone] (Wo rk) Social History Tobacco Use Types [...] you attend religious or Patient refused 2021 jainism services? Do [...] THC multivit-min/iron/folic/ Take 1 tablet by 0 [id number] (HAIR, SKIN AND mouth daily. NAILS ADVANCED [...] Venous) AM CDT 10:53 AM CDT Narrative [facility] - 05/03/2022 11:47 AM CDT Specimen Information: Specimen ID: [id number] Specimen Type: Blood Specimen Collection Start Date: 10:11 AM Specimen Received Date: 05/03/2022 10:53 AM Specimen ID: [id number] Specimen Type: Blood Specimen Collection Start Date: 10:11 AM Specimen Received Date: 05/03/2022 10:53 AM Specimen ID: [id number] Specimen Type: Blood Specimen Collection Start Date: 10:11 AM Specimen Received Date: 05/03/2022 10:53 AM Specimen ID: [id number] Specimen Type: Blood Specimen Collection Start Date: 2 10:11 AM Specimen Received Date: 05/03/2022 10:32 AM Specimen ID: [id number] Specimen Type: Blood Specimen Collection Start Date: 2 10:11 AM Specimen Received Date: 05/03/2022 11:44 AM Shauna Rubin APRN C.N.P., M.S.N. LAB BLOOD ADD-ON Performing Organization Address City/State/ZIP Code Phon e Number [facility] - [address] [place], [place] [address] [facility] [place] [address] [facility] [address] documented in this encounter Visit Diagnoses Diagnosis Anemia documented in this encounter Additional Health Concerns Assessment Noted Time PHQ-9 Depression Total Score: 16 02/11/2021 12:00 AM C DT documented as of this encounter Care Teams Land Acquisition Analyst Relationship Specialty Start Date End Date Elsewhere, Pcp PCP - General Family Medicine 12/25/21 documented as of this encounter
--- OUTSIDE RECORDS SUMMARY | 2022-08-08 22:58 | XMS_ITS | Encounter Summary ---
:1965 Author Organization [facility] Address [address] [place] [address] Care Team Providers Name Role Phone Elsewhere, Pcp Primary Care Provider Unavailable Reason for Referral MRI/CAT/PET Scan (Routine) - Closed Specialty Diagnoses / Procedures Referred By Contact Refer red To Contact Radiology Diagnoses Painful Total Joint Arthroplasty Initial ([facility]) Alfredo Herrera [place] Procedures [place] Shoulder Left without IV Contrast O.P.A.-C. [address] [place] [phone] Referral ID Status Reason Start Date Expiration Date Visits Requ ested Visits Authorized [id number] Closed 04/02/2022 04/02/2023 1 1 Reason for Visit MRI/CAT/PET Scan (Routine) - Closed Specialty Diagnoses / Procedures Referred By Contact Refer red To Contact Radiology Diagnoses Painful Total Joint Arthroplasty Initial ([facility]) Alfredo Herrera [place] Procedures CT Shoulder Left without IV Contrast O.P.A.-C. [address] [place] [phone] Referral ID Status Reason Start Date Expiration Date Visits Requ ested Visits Authorized [id number] Closed 04/02/2022 04/02/2023 1 1 Encounter Details Date Type Department Care Team Description 04/14/2022 Hospital Encounter Department of Alfredo Herrera Painful Total Joint Radiology, [place] Arthroplasty Initial Building, in [address] [place] [address] ([facility]) [facility] [address] 200 [facility] [phone] [place], [place] (Work) [phone] Social History Tobacco Use Types Packs/Day Years [...] you attend sabianist or Patient refused 2021 religion services? Do [...] THC multivit-min/iron/folic/ Take 1 tablet by 0 [id number] (HAIR, SKIN AND mouth daily. NAILS ADVANCED [...] as of this encounter Care Teams It Training Specialist Relationship Specialty Start Date End Date Elsewhere, Pcp PCP - General Family Medicine 12/25/21 documented as of this encounter
--- OUTSIDE RECORDS SUMMARY | 2022-08-08 22:58 | XMS_ITS | Encounter Summary ---
:1965 Author Organization [facility] Address [address] [place] [address] Care Team Providers Name Role Phone Elsewhere, Pcp Primary Care Provider Unavailable Reason for Visit Reason Comments Pre-visit Intake Encounter Details Date Type Department Care Team Description 05/12/2022 Clinical Communication Department of Cyrus Polk e-visit Intake Orthopedic Surgery [place] in [address] [place] [phone] [place], [place] [phone] (Work) [phone] Social History Tobacco Use Types Packs/Day Years [...] you attend christian or Patient refused 2021 jew services? Do [...] as of this encounter Care Teams Home Health Care Social Worker Relationship Specialty Start Date End Date Elsewhere, Pcp PCP - General Family Medicine 12/25/21 documented as of this encounter
--- OUTSIDE RECORDS SUMMARY | 2022-08-08 22:58 | XMS_ITS | Encounter Summary ---
:1965 Author Organization [facility] Address [address] [place] [address] Care Team Providers Name Role Phone Elsewhere, Pcp Primary Care Provider Unavailable Reason for Referral Outpatient (Routine) - Closed Specialty Diagnoses / Procedures Referred By Contact Refer red To Contact Anesthesiology Diagnoses Anemia [facility]in [facility] C.N.Hema, M.S.N. [address] [place] [phone] Referral ID Status Reason Start Date Expiration Date Visits Requ ested Visits Authorized [id number] Closed 04/22/2022 04/22/2023 1 1 Encounter Details Date Type Department Care Team Description 04/22/2022 Orders Only Preoperative Evaluation Shauna Rubin (Primary Dx) Center in [facility], NIKKY [place], [place] M.S.N. [address] [place] [address] [place] [phone] [place], [place] [phone] Social History Tobacco Use Types Packs/Day Years [...] you attend tenriism or Patient refused 2021 jew services? Do [...] 05/03/2022 Venous) AM CDT 10:53 AM CDT [facility] - 05/03/2022 11:47 AM CDT Specimen Information: Specimen ID: [id number] Specimen Type: Blood Specimen Collection Start Date: 10:11 AM Specimen Received Date: 05/03/2022 10:53 AM Specimen ID: [id number] Specimen Type: Blood Specimen Collection Start Date: 2 10:11 AM Specimen Received Date: 05/03/2022 10:53 AM Specimen ID: [id number] Specimen Type: Blood Specimen Collection Start Date: 6/6/202 2 10:11 AM Specimen Received Date: 05/03/2022 10:53 AM Specimen ID: [id number] Specimen Type: Blood Specimen Collection Start Date: 2 10:11 AM Specimen Received Date: 05/03/2022 10:32 AM Specimen ID: [id number] Specimen Type: Blood Specimen Collection Start Date: 2 10:11 AM Specimen Received Date: 05/03/2022 11:44 AM Shauna Rubin APRN C.NCristiana, M.S.N. LAB BLOOD ADD-ON Performing Organization Address City/State/ZIP Code Phon e Number [facility] - [address] [place], [place] [address] [facility] [place] [address] [facility] [address] documented in this encounter Visit Diagnoses Diagnosis Anemia - Primary Anemia documented in this encounter Additional Health Concerns Assessment Noted Time PHQ-9 Depression Total Score: 16 02/11/2021 12:00 AM C DT documented as of this encounter Care Teams Supervisor Paper Products Relationship Specialty Start Date End Date Elsewhere, Pcp PCP - General Family Medicine 12/25/21 documented as of this encounter
--- OUTSIDE RECORDS SUMMARY | 2022-08-08 22:58 | XMS_ITS | Encounter Summary ---
:1965 Author Organization [facility] Address [address] [place] [address] Care Team Providers Name Role Phone Elsewhere, Pcp Primary Care Provider Unavailable Reason for Visit Outpatient (Routine) - Closed Specialty Diagnoses / Procedures Referred By Contact Refer red To Contact Anesthesiology Diagnoses Anemia Shauna Rubin APRN, [facility] C.N.P., M.S.N. [address] [place] [phone] Referral ID Status Reason Start Date Expiration Date Visits Requ ested Visits Authorized [id number] Closed 04/22/2022 04/22/2023 1 1 Encounter Details Date Type Department Care Team Description 05/03/2022 Comprehensive Visit Preoperative Evaluation Shauna Gomez, NIKKY, C.N.P., M.S.N. [address] [place] [phone] [facility] Center in [place], Peter Tse R.N. [address] [place] [phone] [place] [address] [place] [phone] Social History Tobacco Use Types Packs/Day [...] you attend hoahaoism or Patient refused 2021 taoism services? Do [...] her blood health/Hgb. Anemia Probable Diagnosis: Ms. Mosuqera would be classified according to our Preoperative Anemia Treatment Algorithm as being iron deficient. She denies any?blood disorder, previous blood transfusions, EPO injections, recent chemotherapy, cancer history, taking proton pump inhibitors, recent blood donations, recent surgery/procedure, bleeding history, celiac disease, or IBD. ?Denies epistaxis, hematemesis, hematuria, hematochezia, and melena. She has received IV iron in the past when living in [place] (approximately 5-6 years ago). Therapy Plan: With the planned ARTHROPLASTY REPLACEMENT TOTAL SHOULDER on 05/18/2022 the patient would meet criteria based on the Preoperative Anemia Treatment Algorithm and RN Anemia Protocol to receive 1 x 1,000 mgdose of IV iron dextran. Patient agrees with this and would like this administered @ [facility]. I provided the patient with the education pamphlet [id number] Treating Anemia Before Surgery andanswered her questions [...] documented as of this encounter Care Teams Geothermal Powerplant Supervisor Relationship Specialty Start Date End Date Elsewhere, Pcp PCP - General Family Medicine 12/25/21 documented as of this encounter
--- OUTSIDE RECORDS SUMMARY | 2022-08-08 22:59 | XMS_ITS | Encounter Summary ---
:1965 Author Organization [facility] Address [address] [place] [address] Care Team Providers Name Role Phone Elsewhere, Pcp Primary Care Provider Unavailable Encounter Details Date Type Department Care Team Description 03/11/2022 Documentation Department of Orthopedic Melissa Mcdonald M.D. Surgery in [place], [place] [address] [place] [phone] Social History Tobacco Use [...] you attend muslim or Patient refused 2021 rastafari services? Do [...] Mr. 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
--- OUTSIDE RECORDS SUMMARY | 2022-08-08 22:59 | XMS_ITS | Encounter Summary ---
:1965 Author Organization [facility] Address [address] [place] [address] Care Team Providers Name Role Phone Elsewhere, Pcp Primary Care Provider Unavailable Encounter Details Date Type Department Care Team Description 03/02/2022 Orders Only Pharmacy Prior Auth Brooklyn Frias [phone] Social History Tobacco Use Types Packs/Day Years [...] you attend mormon or Patient refused 2021 muslim services? Do [...] as of this encounter Care Teams Customer Service Trainer Relationship Specialty Start Date End Date Elsewhere, Pcp PCP - General Family Medicine 12/25/21 documented as of this encounter
--- OUTSIDE RECORDS SUMMARY | 2022-08-08 22:59 | XMS_ITS | Encounter Summary ---
:1965 Author Organization [facility] Address [address] [place] [address] Care Team Providers Name Role Phone Elsewhere, Pcp Primary Care Provider Unavailable Encounter Details Date Type Department Care Team Description 03/12/2022 Orders Only Department of Melissa Mcdonald Arthroplas ty Total Orthopedic Surgery in M.D. Should er Replacement [place], [place] Status Post Left [address] [facility] (Primary Dx) [place] [address] Social History Tobacco Use Types [...] you attend taoism or Patient refused 2021 amish services? Do [...] documented as of this encounter Care Teams Clinical Documentation Consultant Relationship Specialty Start Date End Date Elsewhere, Pcp PCP - General Family Medicine 12/25/21 documented as of this encounter
--- OUTSIDE RECORDS SUMMARY | 2022-08-08 22:59 | XMS_ITS | Encounter Summary ---
:1965 Author Organization [facility] Address [address] [place] [address] Care Team Providers Name Role Phone Elsewhere, Pcp Primary Care Provider Unavailable Encounter Details Date Type Department Care Team Description 02/26/2022 Clinical Communication [facility] Phar Janet Sarmiento, [address] [facility] [place], [place] [phone] [address] (Work) [phone] Social History Tobacco Use Types Packs/Day Years [...] you attend nondenominational or Patient refused 2021 anabaptism services? Do [...] as of this encounter Care Teams Hand Counter Relationship Specialty Start Date End Date Elsewhere, Pcp PCP - General Family Medicine 12/25/21 documented as of this encounter
--- OUTSIDE RECORDS SUMMARY | 2022-08-08 22:59 | XMS_ITS | Encounter Summary ---
:[address] [facility] Address [address] [place] [address] Care Team Providers Name Role Phone Elsewhere, Pcp Primary Care Provider Unavailable Encounter Details Date Type Department Care Team Description 02/26/2022 Clinical Communication [facility] Austyn Breaux, Pharmacy Umu Alejo [address] [facility] [address] Social History Tobacco Use Types [...] you attend moravian or Patient refused 2021 hinduism services? Do [...] documented as of this encounter Care Teams Perinatal Breastfeeding Assistant Relationship Specialty Start Date End Date Elsewhere, Pcp PCP - General Family Medicine 12/25/21 documented as of this encounter
--- OUTSIDE RECORDS SUMMARY | 2022-08-08 22:59 | XMS_ITS | Encounter Summary ---
:1965 Author Organization [facility] Address [address] [place] [address] Care Team Providers Name Role Phone Elsewhere, Pcp Primary Care Provider Unavailable Reason for Visit Reason Comments Medication Problem Encounter Details Date Type Department Care Team Description 03/01/2022 Clinical Communication Department of Jose Polk Orthopedic Surgery Cyrus Souza M.D. in [place], [facility] [place], [place] [address] [place] [address] [place], [place] [phone] (Work) [phone] Social History Tobacco Use Types Packs/Day Years [...] you attend judaism or Patient refused 2021 denominational services? Do [...] 12:04 PM CDT PIPER. Received fax from [employer] 03-03-22 indicating the doxycycline [facility] [address] 100 mg tab is approved through 11/27/2022. Telephone Encounter - Cyrus Polk M.D. - 03/02/2022 7:45 AM CDT Please see below Thank you Telephone Encounter - Radha Suh - 03/01/2022 3:36 PM CDT Regina, pharmacist working for the insurance company calls regarding the doxycycline hyclate (DORYX) 100 mg EC tablet [[id number]] Script. This is not in their formulary. She has several questions to ask to consider approving this. Please call Regina back [phone], ext [phone] Reference # [id number] documented in this encounter Plan of Treatment Not on filedocumented as of this encounter Visit Diagnoses Not on filedocumented in this encounter Additional Health Concerns Assessment Noted Time PHQ-9 Depression Total Score: 16 02/11/2021 12:00 AM C DT documented as of this encounter Care Teams Dealer Accounts Investigator Relationship Specialty Start Date End Date Elsewhere, Pcp PCP - General Family Medicine 12/25/21 documented as of this encounter
--- OUTSIDE RECORDS SUMMARY | 2022-08-08 22:59 | XMS_ITS | Encounter Summary ---
:1965 Author Organization [facility] Address [address] [place] [address] Care Team Providers Name Role Phone Elsewhere, Pcp Primary Care Provider Unavailable Reason for Visit Reason Comments Communication Encounter Details Date Type Department Care Team Description 03/11/2022 Clinical Communication Department of Cyrus Polk mmunication Orthopedic Surgery in Lilian Souza [place], [place] [address] [place] [address] 200 [place] [phone] [phone] Social History Tobacco Use Types Packs/Day Years [...] you attend yarsani or Patient refused 2021 sabianism services? 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 Telephone Encounter - Radha Suh [...] as of this encounter Care Teams Sales Representative Uniforms Relationship Specialty Start Date End Date Elsewhere, Pcp PCP - General Family Medicine 12/25/21 documented as of this encounter
--- OUTSIDE RECORDS SUMMARY | 2022-08-08 22:59 | XMS_ITS | Encounter Summary ---
:1965 Author Organization [facility] Address [address] [place] [address] Care Team Providers Name Role Phone Elsewhere, Pcp Primary Care Provider Unavailable Encounter Details Date Type Department Care Team Description 03/16/2022 Clinical Communication Department of Cyrus Polk Orthopedic Surgery in [place] Souza [place], [place] [address] [place] [address] 200 [place] [address] [phone] Social History Tobacco Use Types Packs/Day Years [...] you attend jain or Patient refused 2021 moravian services? Do [...] - 03/16/2022 12:15 PM CDT Michael, patient's machine adjuster leader case trim from [facility], is calling hoping to speak to someone on Dr. Polk's surgical team to ensure that the patient is receiving the correct post-op care. Patient is set up for post op appointments at the beginning of March here. However, Michael is looking to speak to someone over the phone to ensure the patient is on the right track. Please call [phone]. Thank you. documented in this encounter Plan of Treatment Not on filedocumented as of this encounter Visit Diagnoses Not on filedocumented in this encounter Additional Health Concerns Assessment Noted Time PHQ-9 Depression Total Score: 16 02/11/2021 12:00 AM C DT documented as of this encounter Care Teams Biochemistry Professor Relationship Specialty Start Date End Date Elsewhere, Pcp PCP - General Family Medicine 12/25/21 documented as of this encounter
--- OUTSIDE RECORDS SUMMARY | 2022-08-08 22:59 | XMS_ITS | Encounter Summary ---
:1965 Author Organization [facility] Address [address] [place] [address] Care Team Providers Name Role Phone Elsewhere, Pcp Primary Care Provider Unavailable Encounter Details Date Type Department Care Team Description 03/05/2022 Orders Only Pharmacy Prior Auth RO Elsewhere, Pcp [phone] Social History Tobacco Use Types Packs/Day Years [...] you attend religious or Patient refused 2021 nondenominational services? Do [...] as of this encounter Care Teams Software Development Specialist Relationship Specialty Start Date End Date Elsewhere, Pcp PCP - General Family Medicine 12/25/21 documented as of this encounter
--- OUTSIDE RECORDS SUMMARY | 2022-08-08 22:59 | XMS_ITS | Encounter Summary ---
:1965 Author Organization [facility] Address [address] [place] [address] Care Team Providers Name Role Phone Elsewhere, [...] you attend muslim or Patient refused 2021 zoroastrianism services? Do [...] documented as of this encounter Care Teams Asparagus Cutter Relationship Specialty Start Date End Date Elsewhere, Pcp PCP - General Family Medicine 12/25/21 documented as of this encounter
--- OUTSIDE RECORDS SUMMARY | 2022-08-08 22:59 | XMS_ITS | Encounter Summary ---
:1965 Author Organization [facility] Address [address] [place] [address] Care Team Providers Name Role Phone Elsewhere, Pcp Primary Care Provider Unavailable Encounter Details Date Type Department Care Team Description 02/26/2022 Anesthesia Event [facility]ST [facility] OR Kaushik Carpenter, [address] [facility] [place] [address] [address] [facility] [phone] [place] [phone] (Wo rk) Anesthesia Record Procedure Summary Procedure [...] h andoff to the receiving staff during [facility] we 1. Identified the patient 2. [...] or the highest technical, or vocational [facility] degree you have received? Sex Assigned at Date Recorded Female 03/01/2019 10:12 AM CDT documented as of this encounter OR Notes Anesthesia Postprocedure Evaluation - Kaushik Carpenter M.B., Ch.B. - 02/26/2022 3:19 PM CDT Patient: Angie Mosquera Procedure Summary Date: 02/26/22 Room / Location: [address] / [facility] in [place], [place] Anesthesia Start: 1212 Anesthesia Stop: 143 [...] ETT location: oral VL device: glide scope Oakman scope blade size: 3 Adult tube size: [...] diagnosis: Degenerative joint disease left. Location: [address] / [facility] in [place], [place] Providers: Cyrus Polk M.D. Pertinent components [...] patient /legal guardian or through an supervisor pumping. Risks/Benefits/Alternatives of Blood transfusion discussed with patient [...] fellow participated in the procedure, and the reservoir engineering consultant was present for the entire procedure. [...] procedure ar e in the results section. NV US GUIDE PLC NDL Routine 02/26/2022 11:53 Resu lts for this AM CDT procedure are i n the results section. NV INJ ANES BRACHIAL Routine 02/26/2022 11:53 Res [...] Kaushik Carpenter M.B., Ch.B. 3. Juana Silva ASSOCIATE BIOLOGICAL SALES, EXPLOSIVE OPERATOR FUSE Patient location during procedure: OR / Procedure Area PROCEDURE DETAILS: Mask difficulty assessment: easy mask Final airway type: video laryngoscope Laryngeal Manipulation: no ?? Final best view of glottic structures - Cormack/Lehane Score: grade 1 ETT location: oral VL device: glide scope Oakman scope blade size: 3 Adult tube size: [...] ATTESTATION STATEMENT Kaushik Carlos, Ch.B. ANESTHESIA ORDERABLES NV INJ ANES BRACHIAL PLEX, NV US GUIDE PLC NDL, MC ANE NERVE [...] fellow participated in the procedure, and the reservoir engineering consultant was present for the entire procedure. [...] as of this encounter Care Teams Machine Stone Polisher Apprentice Relationship Specialty Start Date End Date Elsewhere, Pcp PCP - General Family Medicine 12/25/21 documented as of this encounter
--- OUTSIDE RECORDS SUMMARY | 2022-08-08 22:59 | XMS_ITS | Encounter Summary ---
:1965 Author Organization [facility] Address [address] [place] [address] Care Team Providers Name Role Phone Elsewhere, Pcp Primary Care Provider Unavailable Encounter Details Date Type Department Care Team Description 03/05/2022 Clinical Communication Pharmacy Prior Auth Ben Chino RO M.D. [phone] Social History Tobacco Use Types Packs/Day Years [...] you attend worship or Patient refused 2021 bahai services? Do [...] documented as of this encounter Care Teams Relief Docking Master Relationship Specialty Start Date End Date Elsewhere, Pcp PCP - General Family Medicine 12/25/21 documented as of this encounter
--- OUTSIDE RECORDS SUMMARY | 2022-08-08 22:59 | XMS_ITS | Encounter Summary ---
:1965 Author Organization [facility] Address [address] [place] [address] Care Team Providers Name Role Phone Elsewhere, Pcp Primary Care Provider Unavailable Reason for Visit Reason Comments Medication Question Encounter Details Date Type Department Care Team Description 03/08/2022 Clinical Communication Department of Jose Polk Orthopedic Surgery Cyrus Souza M.D. in [place], [facility][note 3] [place], [place] [address] [place] [address] [place], [place] [phone] (Work) [phone] Social History Tobacco Use Types Packs/Day Years [...] 03/08/2022 11:22 AM CDT Kylie, pharmacist at [facility] in [place] calls. She is wondering if you indeed want to fill it. Please call her back at [phone] Regarding the oxycodone script sent today---patient had [...] documented as of this encounter Care Teams Qa Developer Relationship Specialty Start Date End Date Elsewhere, Pcp PCP - General Family Medicine 12/25/21 documented as of this encounter
--- OUTSIDE RECORDS SUMMARY | 2022-08-08 22:59 | XMS_ITS | Encounter Summary ---
:1965 Author Organization [facility] Address [address] [place] [address] Care Team Providers Name Role Phone Elsewhere, Pcp Primary Care Provider Unavailable Encounter Details Date Type Department Care Team Description 03/08/2022 Orders Only Department of Orthopedic Melissa Mcdonald M.D. Surgery in [place], [place] [address] [place] [phone] Social History Tobacco Use [...] as of this encounter Care Teams Truck Spotter Relationship Specialty Start Date End Date Elsewhere, Pcp PCP - General Family Medicine 12/25/21 documented as of this encounter
--- OUTSIDE RECORDS SUMMARY | 2022-08-08 22:59 | XMS_ITS | Encounter Summary ---
:1965 Author Organization [facility] Address [address] [place] [address] Care Team Providers Name Role Phone Elsewhere, Pcp Primary Care Provider Unavailable Encounter Details Date Type Department Care Team Description 03/03/2022 Orders Only Pharmacy Prior Auth Usha Maurer [phone] Social History Tobacco Use Types Packs/Day Years [...] you attend buddhism or Patient refused 2021 christian services? Do [...] documented as of this encounter Care Teams Chief School Finance Officer Relationship Specialty Start Date End Date Elsewhere, Pcp PCP - General Family Medicine 12/25/21 documented as of this encounter
--- OUTSIDE RECORDS SUMMARY | 2022-08-08 22:59 | XMS_ITS | Encounter Summary ---
:1965 Author Organization [facility] Address [address] [place] [address] Care Team Providers Name Role Phone Elsewhere, Pcp Primary Care Provider Unavailable Encounter Details Date Type Department Care Team Description 03/03/2022 Orders Only Pharmacy Prior Auth Ana Rosa Ying [phone] Social History Tobacco Use Types Packs/Day Years [...] you attend rastafarian or Patient refused 2021 religion services? Do [...] documented as of this encounter Care Teams Brand Lead Relationship Specialty Start Date End Date Elsewhere, Pcp PCP - General Family Medicine 12/25/21 documented as of this encounter
--- OUTSIDE RECORDS SUMMARY | 2022-08-08 22:59 | XMS_ITS | Encounter Summary ---
:1965 Author Organization [facility] Address [address] [place] [address] Care Team Providers Name Role Phone Elsewhere, Pcp Primary Care Provider Unavailable Encounter Details Date Type Department Care Team Description 03/02/2022 Orders Only Pharmacy Prior Auth Ana Rosa Ying [phone] Social History Tobacco Use Types Packs/Day Years [...] attend oriental orthodox or Patient refused 2021 congregational services? Do [...] documented as of this encounter Care Teams Drapery Sewer Hand Relationship Specialty Start Date End Date Elsewhere, Pcp PCP - General Family Medicine 12/25/21 documented as of this encounter
--- OUTSIDE RECORDS SUMMARY | 2022-08-08 22:59 | XMS_ITS | Encounter Summary ---
:1965 Author Organization [facility] Address [address] [place] [address] Care Team Providers Name Role Phone Elsewhere, Pcp Primary Care Provider Unavailable Encounter Details Date Type Department Care Team Description 02/26/2022 Clinical Communication [facility] Blanca Galan Eisenberg C.Ph.T. [address] [facility] [phone] [place], [place] (Work) [phone] Social History Tobacco Use [...] you attend restorationism or Patient refused 2021 sabianist services? Do [...] documented as of this encounter Care Teams Life Insurance Sales Relationship Specialty Start Date End Date Elsewhere, Pcp PCP - General Family Medicine 12/25/21 documented as of this encounter
--- OUTSIDE RECORDS SUMMARY | 2022-08-08 22:59 | XMS_ITS | Encounter Summary ---
:1965 Author Organization [facility] Address [address] [place] [address] Care Team Providers Name Role Phone Elsewhere, Pcp Primary Care Provider Unavailable Encounter Details Date Type Department Care Team Description 03/08/2022 Documentation Department of Orthopedic Melissa Mcdonald M.D. Surgery in [place], [place] [address] [place] [phone] Social History Tobacco Use [...] you attend pentecostalism or Patient refused 2021 rastafari services? Do [...] documented as of this encounter Care Teams Airplane Pilot Photogrammetry Relationship Specialty Start Date End Date Elsewhere, Pcp PCP - General Family Medicine 12/25/21 documented as of this encounter
--- OUTSIDE RECORDS SUMMARY | 2022-08-08 22:59 | XMS_ITS | Encounter Summary ---
:1965 Author Organization [facility] Address [address] [place] [address] Care Team Providers Name Role Phone Elsewhere, Pcp Primary Care Provider Unavailable Encounter Details Date Type Department Care Team Description 03/08/2022 Orders Only Department of Orthopedic Melissa Mcdonald M.D. Surgery in [place], [place] [address] [place] [phone] Social History Tobacco Use [...] you attend catholic or Patient refused 2021 advent services? Do [...] documented as of this encounter Care Teams Bar Helper Relationship Specialty Start Date End Date Elsewhere, Pcp PCP - General Family Medicine 12/25/21 documented as of this encounter
--- OUTSIDE RECORDS SUMMARY | 2022-08-08 22:59 | XMS_ITS | Encounter Summary ---
:1965 Author Organization [facility] Address [address] [place] [address] Care Team Providers Name Role Phone Elsewhere, Pcp Primary Care Provider Unavailable Encounter Details Date Type Department Care Team Description 03/03/2022 Orders Only Pharmacy Prior Auth Yady Lebron [phone] Social History Tobacco Use Types Packs/Day Years [...] as of this encounter Care Teams Head Athletic Trainer/Strength Coach Relationship Specialty Start Date End Date Elsewhere, Pcp PCP - General Family Medicine 12/25/21 documented as of this encounter
--- OUTSIDE RECORDS SUMMARY | 2022-08-08 22:59 | XMS_ITS | Encounter Summary ---
:1965 Author Organization [facility] Address [address] [place] [address] Care Team Providers Name Role Phone Elsewhere, Pcp Primary Care Provider Unavailable Reason for Referral Medication Prior Authorization - Denied Specialty Diagnoses / Procedures Referred By Contact Refer red To Contact Michael Chino M.D. Referral ID Status Reason Start Date Expiration Date Visits Requ ested Visits Authorized [id number] Denied 1 1 Encounter Details Date Type Department Care Team Description 02/26/2022 - Hospital Encounter [facility] Jam, Shoulder Joint Disorder Left; 02/27/2022 Hospital, Confucianism Cyrus Souza M.D. Pain Shoulder Left [facility] [address] [facility] [address] [place], [place] Floor [phone] [address] [facility] [phone] [place], [place] (Work[place] [phone] Social History Tobacco Use [...] you attend yarsani or Patient refused 2021 pentecostalism services? Do you belong to any clubs or No 05/17/2022 organizations such as yarsani groups, [employer], [employer] or athletic groups, or school groups? How [...] THC multivit-min/iron/folic/ Take 1 tablet by 0 [id number] (HAIR, SKIN AND mouth daily. NAILS ADVANCED [...] controlled by Tylenol.) Indication: Acute Pain Exception. pregabalin (LYRICA) 300 Take 600 mg by mouth 0 06/17/2022 mg capsule 2 (two) times a day. QUEtiapine (SEROquel) 50 Take 50 mg by mouth 0 06/17/2022 mg tablet at bedtime. doxycycline hyclate Take 1 tablet (100 mg 28 tablet 0 02/2603/12/2022 (DORYX) 100 mg EC tablet total) by mouth 2 (two) times a day for 14 days. documented as of this encounter Progress Notes Navya Gibson M.D. - 02/27/2022 8:05 AM CDT Orthopedic Service: [facility] Admission Day: 02/26/2022 SUBJECTIVE POD1. She is [...] am until 6 pm, please page the [facility] pager at [phone] For urgent matters from 6 pm until 6 am, please page Ortho House at [phone] Michael Chino M.D. - 02/26/2022 3:03 PM [...] am until 6 pm, please page the [facility] pager at [phone] For urgent matters from 6 pm until 6 am, please page Orth[facility] House at [phone] Clemente Buck, Pharm.D., R.Ph. - 02/26/2022 9:17 [...] Take 150 mg by mouth every morning. vxcbixbnwt-elzznzdqzeohb-lwzy (ESGIC) 50-325-40 mg per tablet Past Week [...] 1 spray as needed. 5 mg THC multivit-min/iron/folic/lmx096 (HAIR, SKIN AND NAILS ADVANCED ORAL) 02/25/2022 [...] (HCC) ??? Nicotine Dependence Unspecified ??? 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 Direct Infection Of [...] assistance ADL Assistance Comments: Gets help from MERCHANDISE COMPLAINT ADJUSTER for her bath/shower and for her meals IADL/Homemaking Assistance: Required assistance IADL/Homemaking Assistance Comments: Gets help for housecleaning Driving: Independent Driving Comments: takes her cane and medical alert with her. Occupational Role: On disability Occupational Role Comments: Previously worked at a [employer] Prior Mobility/Functional Transfers Level of Sevier: Modified independent Previous Transfer/Mobility Assistance Comments: Patient [...] mask during therapy session: yes Outcome Measures [facility] Inpatient Short Form: [facility] Basic Mobility (V.2) How much help [...] Standardized Score: 57.68 Interpretation: Clinicians answer the [facility] Inpatient Short Form based on observed [...] Prescriptions were sent and filled at the [facility] pharmacy. Catalina Mccloud R.N. - 02/27/2022 12:00 PM CDT Shift Goals: Clinical Goals for the Shift: 1) Manage pain Identify possible barriers to meeting goals/advancing plan of care: chronic pain End of Shift Summary: Patient was able to be discharged with transport provided by a friend. documented in this encounter OR Notes Op Note - Cyrus Plok M.D. - 02/26/2022 9:22 AM CDT STAFF: Cyrus Polk M.D. RESIDENT: Michael Chino M.D. 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 A cable splicer assistant was necessary for one or more [...] be placed with approximately 70% contact with capitan grande band bone. The more superior aspect of the [...] of antibiotic spacer, implantation of reverse arthroplasty, [id number] Cyrus Polk M.D. CT CT Job ID: [id number] documented in this encounter Plan of Treatment [...] M.D. LAB BLOOD ADD-ON Performing Organization Address City/State/[facility] Code Phon e Number [facility] - [address] [place], [place] [address] [facility] [place] [address] [facility] 200 [facility] (ABNORMAL) Basic Metabolic Panel (02/26/2022 3:47 PM [...] 02/26/2022 DTL Black/ mL/min/BSA 6:27 PM CDT Belizean Comment: ----ADDITIONAL INFORMATION---- Estimated GFR calculated using [...] [facility] - 200 [place], [place] [address] [facility] [place] [address] [facility] 200 [facility] (ABNORMAL) CBC with Differential, Blood (02/26/2022 3:47 PM CDT) [facility] Method Time Signature Hemoglobin 8.8 (L) 11.6 [...] Number [facility] - [address] [place] [phone] [facility] [place] [address] [facility] 200 [facility] DX Shoulder Left 1 View (02/26/2022 2:47 [...] Aerobe / Anaerobe+Susc (02/26/2022 1:00 PM CDT) [facility] Method Time Signature Bacteria Cult, No growth 03/12/2022 DTL Aerobe/Anaerob after 14 2:02 PM CDT e+Susc days of incubation. Specimen Anatomical Collection Method Collection Time Receive d Time (Source) Location / / Volume Laterality Shoulder, Left 02/26/2022 1:00 PM 022 1:41 CDT PM CDT Comment: Specimen Source Site: Tissue 1 Narrative [facility] - 03/12/2022 2:02 PM CDT Bacterial Culture: Placed in Bactec aero bic and Bactec anaerobic bottles Cyrus Polk M.D. LAB MICROBIOLOGY - GENERAL O MARY Performing Organization Address City/[facility] Phon e Number [facility] - [address] Bacteria Cult, Aerobe / Anaerobe+Susc (02/26/2022 1:00 PM CDT) [facility] Method [place] Signature Bacteria Cult, No growth 03/12/2022 DTL Aerobe/Anaerob after 14 2:02 PM CDT e+Susc days of incubation. Specimen Anatomical Collection Method Collection Time Receive d Time (Source) Location / / Volume Laterality Shoulder, Left 02/26/2022 1:00 PM 022 1:38 CDT PM CDT Comment: Specimen Source Site: Tissue 3 Narrative [facility] - 03/12/2022 2:02 PM CDT Bacterial Culture: Placed in Bactec aero bic and Bactec anaerobic bottles Cyrus Polk M.D. LAB MICROBIOLOGY - GENERAL O MARY Performing Organization Address City/[facility] Phon e Number [facility] - 200 [place], [place] [address] [facility] [place], [place] [phone] [place] [address] Bacteria Cult, Aerobe / Anaerobe+Susc (02/26/2022 1:00 PM CDT) Patholo gist Method Time Signature Bacteria Cult, No growth 03/12/2022 DTL Aerobe/Anaerob after 14 2:02 PM CDT e+Susc days of incubation. Specimen Anatomical Collection Method Collection Time Receive d Time (Source) Location / / Volume Laterality Shoulder, Left 02/26/2022 1:00 PM 022 1:36 CDT PM CDT Comment: Specimen Source Site: Tissue [address] [facility] - [facility] - 03/12/2022 2:02 PM CDT Bacterial Culture: Placed in Bactec aero bic and Bactec anaerobic bottles Cyrus Polk M.D. LAB MICROBIOLOGY - GENERAL O RDERABLES Performing Organization Address City/State/ZIP Code Phon e Number [facility] - [address] [place] [phone] [facility] [place] [place] [address] [facility] [address] [facility] Surgical Pathology, Frozen Lab (02/26/2022 1:00 PM CDT) Component Value Ref Test Analysis Performed Pathologis t Range Method Time At [facility] 03/01/2022 METH 3:43 PM CDT Participated in [...] Nan Ledezma M.S., PA([facility] Block Summary A Left shoulder 03/01/2022 METH [...] LAB SURG PATH ORDERABLES Performing Organization Address City/State/[facility] Code Phon e Number [facility] - [address] [place], [place] [address] [facility] [place] [address] [facility] [address] documented in this [...] mg (TYLENOL) (COMPLETED) 104 (Given - Provider: Dnona Mercado R.N.) 1,000 mg, oral, Once, On [...] 2 hour MI N, indigestion, Starting on Tue02/26/22 at 1451, [...] as of this encounter Care Teams Supervisor Brake Repair Relationship Specialty Start Date End Date Elsewhere, Pcp PCP - General Family Medicine 12/25/21 documented as of this encounter
--- OUTSIDE RECORDS SUMMARY | 2022-08-08 22:59 | XMS_ITS | Encounter Summary ---
:1965 Author Organization [facility] Address [address] [place] [address] Care Team Providers Name Role Phone Elsewhere, Pcp Primary Care Provider Unavailable Encounter Details Date Type Department Care Team Description 03/02/2022 Orders Only Pharmacy Prior Auth Sarmad Solnao [phone] Social History Tobacco Use Types Packs/Day Years [...] you attend sikh or Patient refused 2021 pentecostalism services? Do [...] as of this encounter Care Teams Health Actuary Relationship Specialty Start Date End Date Elsewhere, Pcp PCP - General Family Medicine 12/25/21 documented as of this encounter
--- OUTSIDE RECORDS SUMMARY | 2022-08-08 23:00 | XMS_ITS | Encounter Summary ---
:1965 Author Organization [facility] Address [address] [place] [address] Care Team Providers Name Role Phone Elsewhere, Pcp Primary Care Provider Unavailable Reason for Visit Reason Comments OPAT Intervention Encounter Details Date Type Department Care Team Description 01/28/2022 Clinical Communication Section of Ruth Eddy (Intervention Infectious T, R.N. ) Diseases in [address] [place] [phone] [place] [address] [place], [place] (Work) [phone] Social History Tobacco Use Types Packs/Day Years [...] you attend yarsani or Patient refused 2021 gnosticism services? Do [...] are for now to obtain ALP trend. AINER WASHER MACHINE Telephone Encounter - Desirae Domingo R.N. - 02/01/2022 12:11 PM CST Maritza calls from [place] regarding Alk phos from 01/28. It is greater than 1.5 the upper limit of normal. AINER WASHER MACHINE Telephone Encounter - Su Greene, Pharm.D., R.Ph. - 01/29/2022 8:49 AM CST Reviewed WBC trend including WBC on 01/28, no changes at this time, see note from my colleague Jennifer Roca for details. AINER WASHER MACHINE Telephone Encounter - Ruth Eddy R.N. - 01/29/2022 8:14 AM CST OPAT NOTE ?? Infusion Provider: [facility], phone: [phone], fax: [phone] Labs and site care at [facility], phone: [phone] Antimicrobial(s) currently prescribed: See Med List Hyperlink in note Firm stop date: 02/11/22 ?? Lab results from are viewable in the MCR record--listed as External Labs (received via fax, which has been uploaded to Document Viewer/Media) ?? Interpretation and action: The labs were reviewed. WBC and ANC are improving. I will send this to the provider for review. AINER WASHER MACHINE Telephone Encounter - Jennifer Roca Pharm.D., R.Ph. - 01/28/2022 10:21 AM CONTAINER WASHER MACHINE Pertinent labs and antimicrobial regimen as indicated [...] time. For monitoring: continue weekly OPAT labs. AINER WASHER MACHINE Telephone Encounter - Ruth Eddy RBrittonN. - 01/28/2022 9:40 AM CST OPAT NOTE Infusion Provider: [facility], phone: [phone], fax: [phone] Labs and site care at [facility], phone: [phone] Antimicrobial(s) currently prescribed: See Med List Hyperlink in note Firm stop date: 02/11/22 Lab results from 01/21/2022 are viewable in the MCR record--listed as External Labs (received via fax, which has been uploaded to Document Viewer/Media) Interpretation and action: The labs were reviewed. WBC is 3.6 and ANC is 1.42. Alk Phos was not done. Labs will be [facility] for review. Orders were sent to [facility] that included alk phos that will be drawn today, 01-28-2022. AINER WASHER MACHINE documented in this encounter Plan of Treatment Not on filedocumented as of this encounter Procedures Procedure Name Priority Date/Time Associated Comments Diagnosis CBC WITH DIFFERENTIAL, B Routine 01/28/2022 3:00 Results for this PM CONTAINER WASHER MACHINE procedure are i n the results section. ALANINE AMINOTRANSFERASE Routine 01/28/2022 3:00 Results for this (ALT), S/P PM CONTAINER WASHER MACHINE procedure are i n the results section. ALKALINE PHOSPHATASE, Routine 01/28/2022 3:00 Res ults for this S/P PM CONTAINER WASHER MACHINE procedure are i n the results section. CREATININE WITH EGFR, Routine 01/28/2022 3:00 Res ults for this S/P PM CONTAINER WASHER MACHINE procedure are i n the results [...] Results ALT (Alanine Aminotransferase) (01/28/2022 3:00 PM CONTAINER WASHER MACHINE) athologist Signature EXT ALT 20 4 - 35 [facility] Specimen (Source) Anatomical Location Collection Method / Collectio n Time Received Time / Laterality Volume Blood (Blood, Venous) Laly Ward APRN, RBrittonN. LAB BLOOD ADD-ON Performing Organization Address City/State/ZIP Code Phon e Number [facility] (ABNORMAL) Alkaline Phosphatase (01/28/2022 3:00 PM CONTAINER WASHER MACHINE) athologist Signature EXT Alkaline 97 (A) 40 - 50 [facility] Phosphatase LAB Specimen (Source) Anatomical Location Collection Method / Collectio n Time Received Time / Laterality Volume Blood (Blood, Venous) Laly Ward APRN RBrittonNBritton LAB BLOOD ADD-ON Performing Organization Address City/State/ZIP Code Phon e Number [facility] Creatinine with Estimated GFR (01/28/2022 3:00 PM CONTAINER WASHER MACHINE) athologist Signature EXT Creatinine 0.6 0.5 - [...] CBC with Differential, Blood (01/28/2022 3:00 PM CONTAINER WASHER MACHINE) Analysis Performed At Patho logist Time Signature [...]
--- OUTSIDE RECORDS SUMMARY | 2022-08-08 23:00 | XMS_ITS | Encounter Summary ---
:1965 Author Organization [facility] Address [address] [place] [address] Care Team Providers Name Role Phone Elsewhere, Pcp Primary Care Provider Unavailable Reason for Visit Reason Comments OPAT Lab request Encounter Details Date Type Department Care Team Description 01/26/2022 Clinical Communication Section of Ruth Eddy (Lab request) Infectious T, R.N. Diseases in [address] [place] [phone] [place] [address] [place], [place] (Work) [phone] Social History Tobacco Use Types Packs/Day Years [...] you attend mandaeism or Patient refused 2021 caodaism services? Do [...] Eddy RBrittonN. - 01/26/2022 4:[address] [facility], phone: [phone] was called and message left to fax us lab results. Our fax and phone number was given. ER LAYER documented in this encounter Plan of Treatment Not on filedocumented as of this encounter Visit Diagnoses Not on filedocumented in this encounter Additional Health Concerns Assessment Noted Time PHQ-9 Depression Total Score: 16 02/11/2021 12:00 AM C DT documented as of this encounter Care Teams Firmware Architect Relationship Specialty Start Date End Date Elsewhere, Pcp PCP - General Family Medicine 12/25/21 documented as of this encounter
--- OUTSIDE RECORDS SUMMARY | 2022-08-08 23:00 | XMS_ITS | Encounter Summary ---
:1965 Author Organization [facility] Address [address] [place] [address] Care Team Providers Name Role Phone Elsewhere, Pcp Primary Care Provider Unavailable Reason for Referral Outpatient (Routine) - Authorized Specialty Diagnoses / Procedures Referred By Contact Refer red To Contact Diagnoses Estimator Lumber Antibiotic Treatment Tejal Medley MPAS, P.A.-C., M.S. [address] [place] [phone] Referral ID Status Reason Start Expiration Visits Visits Date Date Requested Authorized [id number] Authorized Patient 02/08/2022 02/08/2023 1 1 Preference Reason for Visit Reason Comments OPAT Care Coordination Encounter Details Date Type Department Care Team Description 02/08/2022 Clinical Communication Section of Desirae Domingo (Care Infectious Diseases M, R.N. Coordination) in [place], [address] [place] [address] [place] [phone] [place], [place] [phone] (Work) [phone] Social History Tobacco Use Types Packs/Day Years [...] you attend gnosticism or Patient refused 2021 nondenominational services? Do you belong to any clubs or No 05/17/2022 organizations such as gnosticism groups, unions, fraFaceAlerta or athletic groups, or school groups? How [...] 02/08/2022 12:06 PM CDT Maritza calls from [place]. Vendor Registry stop date of 02/11 for IV antibiotics. Maritza requests order be faxed to [facility] where patient has labs and PICC site care done. I called the [facility], .Pull PIC order can be faxed to [phone]. documented in this encounter Plan of Treatment Not on filedocumented as of this encounter Visit Diagnoses Diagnosis Half-Way Antibiotic Treatment - Primary documented in this encounter Additional Health Concerns Assessment Noted Time PHQ-9 Depression Total Score: 16 02/11/2021 12:00 AM C DT documented as of this encounter Care Teams [place] Aide Relationship Specialty Start Date End Date Elsewhere, Pcp PCP - General Family Medicine 12/25/21 documented as of this encounter
--- OUTSIDE RECORDS SUMMARY | 2022-08-08 23:00 | XMS_ITS | Encounter Summary ---
:1965 Author Organization [facility] Address [address] [place] [address] Care Team Providers Name Role Phone Elsewhere, Pcp Primary Care Provider Unavailable Reason for Visit Reason Comments OPAT Monitoring Complete Encounter Details Date Type Department Care Team Description 02/12/2022 Clinical Communication Section of Kylie Siddiqui (Monitoring Infectious Diseases M, R.N. Complete) in [facility] [phone] [place] (Work) [address] [place] [phone] Social History Tobacco Use Types Packs/Day Years [...] you attend sikh or Patient refused 2021 restoration services? Do [...] Complete) Information Discussed Princess, a nurse from [place], called to see if any labs need [...] documented as of this encounter Care Teams Extension Service Advisor Relationship Specialty Start Date End Date Elsewhere, Pcp PCP - General Family Medicine 12/25/21 documented as of this encounter
--- OUTSIDE RECORDS SUMMARY | 2022-08-08 23:00 | XMS_ITS | Encounter Summary ---
:1965 Author Organization [facility] Address [address] [place] [address] Care Team Providers Name Role Phone Elsewhere, Pcp Primary Care Provider Unavailable Encounter Details Date Type Department Care Team Description 01/08/2022 Orders Only Pharmacy Prior Auth RO Elsewhere, Pcp [phone] Social History Tobacco Use Types Packs/Day Years [...] you attend uatsdin or Patient refused 2021 congregation services? Do [...] documented as of this encounter Care Teams Hay Rake Operator Relationship Specialty Start Date End Date Elsewhere, Pcp PCP - General Family Medicine 12/25/21 documented as of this encounter
--- OUTSIDE RECORDS SUMMARY | 2022-08-08 23:00 | XMS_ITS | Encounter Summary ---
:1965 Author Organization [facility] Address [address] [place] [address] Care Team Providers Name Role Phone Elsewhere, Pcp Primary Care Provider Unavailable Reason for Visit Reason Comments OPAT Care Coordination Encounter Details Date Type Department Care Team Description 01/22/2022 Clinical Communication Section of Steven Dennis (Care Infectious Diseases E, R.N. Coordination) in [address] [place] [phone] [place], [place] [phone] (Work) [phone] Social History Tobacco Use Types Packs/Day Years [...] IR. ??Is she able to come to [place] for IR PICC placement? ??If not, we'll [...] I spoke to Carolynn, the nurse at [facility]. She spoke to their wound care nurse and she would liketo try some different dressings first before they move the PICC to the chest. They cannot place a PICC in the chest in [place], so if needed, the patient would have to come to [place]. The patientwill be there at 2 pm today. She will call back with the patient so we all can come up with a plan together. Addendum: We missed a call from Carolynn, infusion nurse at [facility]. Her message stated that PICCsite care was performed and the site looks better. The wound care team has a plan and is hoping thatblessinge can keep her current PICC. OR ELECTRICAL ENGINEER Telephone Encounter - Tejal Rudolph R.N. - 01/22/2022 4:46 PM SENIOR ELECTRICAL ENGINEER I have been unable to reach the patient, but I notified nurse Carolynn at [facility] of Dr. Boris Chaidez's recommendation, that they could try moving the line to the other arm and use a midline but avoid a chest PICC. I faxed the order for midline placement. Nurse Carolynn at [place] questioned whether the midline could be moved to the other (left) arm, because patient wears a sling on that arm. OR ELECTRICAL ENGINEER Telephone Encounter - Steven Dennis R.N. - [...] She did get a special dressing from [facility] to use, but it doesn't seem to be helping. Dressing was changed at [facility] today and they applied some guaze to help with the drainage. 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
--- OUTSIDE RECORDS SUMMARY | 2022-08-08 23:00 | XMS_ITS | Encounter Summary ---
:1965 Author Organization [facility] Address [address] [place] [address] Care Team Providers Name Role Phone Elsewhere, Pcp Primary Care Provider Unavailable Reason for Referral MRI/CAT/PET Scan (Routine) - Closed Specialty Diagnoses / Procedures Referred By Contact Refer red To Contact Radiology Diagnoses Painful Total Joint Arthroplasty Initial ([facility]) Michael Chino M.D. [facility] Procedures CT Shoulder Left without IV Contrast [address] [place] [address] Referral ID Status Reason Start Date Expiration Date Visits Requ ested Visits Authorized [id number] Closed 02/25/2022 02/25/2023 1 1 Encounter Details Date Type Department Care Team Description 02/25/2022 Orders Only Department of Michael Chino, Painful T otal Joint Orthopedic Surgery in [place].Neri Arthro plasty Initial [place], [place] ([facility]) [address] [place] [address] Social History Tobacco Use Types Packs/Day Years [...] you attend jewish or Patient refused 2021 holiness services? Do you belong to any clubs or No 05/17/2022 organizations such as jewish groups, [employer] or athletic groups, or school groups? How [...] documented as of this encounter Care Teams Material Handling Supervisor Relationship Specialty Start Date End Date Elsewhere, Pcp PCP - General Family Medicine 12/25/21 documented as of this encounter
--- OUTSIDE RECORDS SUMMARY | 2022-08-08 23:00 | XMS_ITS | Encounter Summary ---
:1965 Author Organization [facility] Address [address] [place] [address] Care Team Providers Name Role Phone Elsewhere, Pcp Primary Care Provider Unavailable Encounter Details Date Type Department Care Team Description 01/01/2022 Clinical Communication [facility] Sapna Dodge C.Ph.T. [address] [facility] [phone] [place], [place] (Work) [phone] Social History Tobacco Use [...] documented as of this encounter Care Teams Undergraduate Intern Relationship Specialty Start Date End Date Elsewhere, Pcp PCP - General Family Medicine 12/25/21 documented as of this encounter
--- OUTSIDE RECORDS SUMMARY | 2022-08-08 23:00 | XMS_ITS | Encounter Summary ---
:1965 Author Organization [facility] Address [address] [place] [address] Care Team Providers Name Role Phone Elsewhere, Pcp Primary Care Provider Unavailable Reason for Visit Reason Comments Labs Only Encounter Details Date Type Department Care Team Description 02/05/2022 Documentation Section of Infectious Amna Kaur , Labs Only Diseases in [facility] 200 [facility] 200 [place] [address] [phone] Social History Tobacco Use Types Packs/Day Years [...] you attend jew or Patient refused 2021 congregational services? Do [...] PM CST Labs entered at this time. MENT IMAGING MANAGER documented in this encounter Plan of Treatment Not on filedocumented as of this encounter Procedures Procedure Name Priority Date/Time Associated Comments Diagnosis CBC WITH DIFFERENTIAL, B Routine 02/04/2022 3:06 Results for this PM DOCUMENT IMAGING MANAGER procedure are i n the results section. ALANINE AMINOTRANSFERASE Routine 02/04/2022 3:06 Results for this (ALT), S/P PM DOCUMENT IMAGING MANAGER procedure are i n the results section. ALKALINE PHOSPHATASE, Routine 02/04/2022 3:06 Res ults for this S/P PM DOCUMENT IMAGING MANAGER procedure are i n the results section. CREATININE WITH EGFR, Routine 02/04/2022 3:06 Res ults for this S/P PM DOCUMENT IMAGING MANAGER procedure are i n the results section. documented in this encounter Results ALT (Alanine Aminotransferase) (02/04/2022 3:06 PM DOCUMENT IMAGING MANAGER) P athologist Signature EXT ALT 20 4 - 35 OTHER (SPECIFY IN HISTORY FACULTY MEMBER) Specimen (Source) Anatomical Location Collection Method / Collectio n Time Received Time / Laterality Volume Blood (Blood, Venous) Resulting Agency Comment [facility] Gucci Salvador M.D. LAB BLOOD ADD-ON Performing Organization Address City/State/ZIP Code Phon e Number OTHER (SPECIFY IN HISTORY FACULTY MEMBER) OTHER (SPECIFY IN HISTORY FACULTY MEMBER) N/A Alkaline Phosphatase (02/04/2022 3:06 PM DOCUMENT IMAGING MANAGER) P athologist Signature EXT Alkaline 102 40 - 150 OTHER (SPECIFY Phosphatase IN HISTORY FACULTY MEMBER) Specimen (Source) Anatomical Location Collection Method / Collectio n Time Received Time / Laterality Volume Blood (Blood, Venous) Resulting Agency Comment [facility] Gucci Salvador M.D. LAB BLOOD ADD-ON Performing Organization Address City/State/ZIP [facility] Phon e Number OTHER (SPECIFY IN HISTORY FACULTY MEMBER) OTHER (SPECIFY IN HISTORY FACULTY MEMBER) N/A Creatinine with Estimated GFR (02/04/2022 3:06 PM DOCUMENT IMAGING MANAGER) P athologist Signature EXT Creatinine 0.7 0.5 - 1.5 OTHER (SPECIFY mg/dL IN HISTORY FACULTY MEMBER) Specimen (Source) Anatomical Location Collection Method / Collectio n Time Received Time / Laterality Volume Blood (Blood, Venous) Resulting Agency Comment [facility] Gucci Salvador M.D. LAB BLOOD ADD-ON Performing Organization Address City/[facility] Phon e Number OTHER (SPECIFY IN HISTORY FACULTY MEMBER) OTHER (SPECIFY IN HISTORY FACULTY MEMBER) N/A (ABNORMAL) CBC with Differential, Blood (02/04/2022 3:06 PM DOCUMENT IMAGING MANAGER) P athologist Signature EXT Platelet 253 150 - 450 OTHER Count (SPECIFY IN HISTORY FACULTY MEMBER) EXT Hemoglobin 9.1 (A) 12 - 15.5 OTHER (SPECIFY IN HISTORY FACULTY MEMBER) EXT White Blood 4.0 (A) 5.0 - 10.0 OTHER Cell (WBC) (SPECIFY IN Count HISTORY FACULTY MEMBER) Specimen (Source) Anatomical Location Collection Method / Collectio n Time Received Time / Laterality Volume Blood (Blood, Venous) Narrative This result has an attachment that is no t available. Resulting Agency Comment [facility] Gucci Hernandezk Lilian LAB BLOOD ADD-ON Performing Organization Address City/State/ZIP [facility] Phon e Number OTHER (SPECIFY IN HISTORY FACULTY MEMBER) OTHER (SPECIFY IN HISTORY FACULTY MEMBER) N/A documented in this encounter Visit Diagnoses Not on filedocumented in this encounter Additional Health Concerns Assessment Noted Time PHQ-9 Depression Total Score: 16 02/11/2021 12:00 AM C DT documented as of this encounter Care Teams Crepe Laminator Operator Relationship Specialty Start Date End Date Elsewhere, Pcp PCP - General Family Medicine 12/25/21 documented as of this encounter
--- OUTSIDE RECORDS SUMMARY | 2022-08-08 23:00 | XMS_ITS | Encounter Summary ---
:[address] [facility] Address [address] [place] [address] Care Team Providers Name Role Phone Elsewhere, Pcp Primary Care Provider Unavailable Encounter Details Date Type Department Care Team Description 01/01/2022 Episode Changes Section of Infectious Lin Tadeo Diseases in [place], (Work ) [place] [address] [place] [address] Social History Tobacco Use Types Packs/Day [...] documented as of this encounter Care Teams Copy Clerk Relationship Specialty Start Date End Date Elsewhere, Pcp PCP - General Family Medicine 12/25/21 documented as of this encounter
--- OUTSIDE RECORDS SUMMARY | 2022-08-08 23:00 | XMS_ITS | Encounter Summary ---
:1965 Author Organization [facility] Address [address] [place] [address] Care Team Providers Name Role Phone Elsewhere, Pcp Primary Care Provider Unavailable Reason for Visit Reason Comments OPAT Normal Labs Encounter Details Date Type Department Care Team Description 01/15/2022 Clinical Communication Section of Madhav Rizo (Normal Labs) Infectious Diseases M, M.P.H., in [address] [place] [phone] [phone] Social History Tobacco Use Types Packs/Day Years [...] you attend advent or Patient refused 2021 congregational services? Do [...] Rizo M.P.H., R.N. - 01/15/2022 3:24 PM RN TELEHEALTH OPAT NOTE Infusion Provider: Dennis TA [facility], phone: [phone], fax: [phone] Labs and site care at [facility], phone: [phone] Antimicrobial(s) currently prescribed: See Med List Hyperlink in note Firm stop date: 02/11/22 Lab results from 01/14/2022 are viewable in the MCR record--listed as External Labs (received via fax, which has been uploaded to Document Viewer/Media) Interpretation and action: The labs were satisfactory and acceptable. No change in plan as per OPAT Practice Guideline. TELEHEALTH documented in this encounter Plan of Treatment [...] EXT ALT 14 4 - 35 [facility] Specimen (Source) Anatomical Location Collection Method / Collectio n Time Received Time / Laterality Volume Blood (Blood, Venous) Laly Ward APRN RBrittonN. LAB BLOOD ADD-ON Performing Organization Address City/[facility]/ZIP Code Phon e Number [facility] [address] [place] [address] Creatinine with Estimated GFR (01/14/2022) athologist Signature EXT Creatinine 0.6 0.5 - 1.5 [place] mg/dL [facility] Specimen (Source) Anatomical Location Collection Method / Collectio n Time Received Time / Laterality Volume Blood (Blood, Venous) Laly Ward APRN R.N. LAB BLOOD ADD-ON Performing Organization Address City/[facility]/ZIP Code Phon e Number [facility] [address] [place] [address] (ABNORMAL) CBC with Differential, Blood (01/14/2022) athologist Signature EXT Platelet 406 150 - 450 [place] Count [facility] EXT Hemoglobin 9 (A) 12 - 15.5 [facility] EXT Absolute 3.49 1.7 - 7 [place] Neutrophils [facility] EXT White Blood 5.7 5.0 - 10.0 [place] Cell (WBC) Count [facility] Specimen (Source) Anatomical Location Collection Method / Collectio n Time Received Time / Laterality Volume Blood (Blood, Venous) Narrative This result has an attachment that is no t available. Laly Ward APRN R.N. LAB BLOOD ADD-ON Performing Organization Address City/[facility]/ZIP Code Phon e Number [facility] [address] [place] [address] documented in this encounter Visit Diagnoses Not on filedocumented in this encounter Additional Health Concerns Assessment Noted Time PHQ-9 Depression Total Score: 16 02/11/2021 12:00 AM C DT documented as of this encounter Care Teams Sample Tester Relationship Specialty Start Date End Date Elsewhere, Pcp PCP - General Family Medicine 12/25/21 documented as of this encounter
--- OUTSIDE RECORDS SUMMARY | 2022-08-08 23:00 | XMS_ITS | Encounter Summary ---
:1965 Author Organization [facility] Address 200 [place] [address] Care Team Providers Name Role Phone Elsewhere, Pcp Primary Care Provider Unavailable Reason for Visit Reason Comments OPAT Intervention Encounter Details Date Type Department Care Team Description 01/07/2022 Clinical Communication Section of MATTHEW Tolbert (Intervention) Infectious Diseases [facility] [phone] [address] [facility] (Work) [place] [address] Social History Tobacco Use Types Packs/Day Years [...] Dandy Reyes, Pharm.D. - 01/12/2022 9:38 AM WHITE GOODS APPLIANCE TECH Pertinent labs and antimicrobial regimen as indicated [...] >0.3 mg/dL and absolute value >1.0 mg/dL. E GOODS APPLIANCE TECH Telephone Encounter - Steven Dennis R.N. - 01/12/2022 9:13 AM CST OPAT NOTE Infusion Provider: Dennis TA [facility], phone: [phone], fax: [phone] Labs and site care at [facility] [place] [facility], phone: [phone] Antimicrobial(s) currently prescribed: See Med List Hyperlink in note Firm stop date: 02/11/22 Lab results from 01/07/22 are viewable in the MCR record--listed as External Labs (received via fax, which has been uploaded to Document Viewer/Media) Interpretation and action: Will send to the OPAT pharmacist to review the creatinine, which has decreased >30%. Alk phos wasnot drawn. E GOODS APPLIANCE TECH documented in this encounter Plan of Treatment Not on filedocumented as of this encounter Procedures Procedure Name Priority Date/Time Associated Comments Diagnosis CBC WITH DIFFERENTIAL, B Routine 01/07/2022 2:30 Results for this PM WHITE GOODS APPLIANCE TECH procedure are i n the results section. ALANINE AMINOTRANSFERASE Routine 01/07/2022 2:30 Results for this (ALT), S/P PM WHITE GOODS APPLIANCE TECH procedure are i n the results section. CREATININE WITH EGFR, Routine 01/07/2022 2:30 Res ults for this S/P PM WHITE GOODS APPLIANCE TECH procedure are i n the results section. documented in this encounter Results ALT (Alanine Aminotransferase) (01/07/2022 2:30 PM WHITE GOODS APPLIANCE TECH) P athologist Signature EXT ALT 10 4 - 35 [facility]) Specimen (Source) Anatomical Location Collection Method / Collectio n Time Received Time / Laterality Volume Blood (Blood, Venous) Laly Ward APRN, R.N. LAB BLOOD ADD-ON Performing Organization Address [facility] e [facility], [address] [place] [address] [facility]) Creatinine with Estimated GFR (01/07/2022 2:30 PM WHITE GOODS APPLIANCE TECH) Analysis Performed At Patho logist Time Signature EXT Creatinine 0.5 0.5 - 1.5 [place] mg/dL [facility]) Specimen (Source) Anatomical Location Collection Method / Collectio n Time Received Time / Laterality Volume Blood (Blood, Venous) Narrative This result has an attachment that is no t available. Laly Ward APRN, R.N. LAB BLOOD ADD-ON Performing Organization Address [facility] Phon e Number [facility], [address] [place] [address] [facility]) (ABNORMAL) CBC with Differential, Blood (01/07/2022 2:30 PM WHITE GOODS APPLIANCE TECH) [facility] gist Method Time Signature EXT Platelet 349 150 - 450 [facility], [facility]) EXT Eosinophils 0.28 0 - 0.5 [facility]) EXT Hemoglobin 8.7 (A) 12 - 15.5 [facility], [facility]) EXT Absolute 3.19 1.7 - 7 [place] Neutrophils [facility], [facility]) EXT White Blood 5.4 5.0 - [place] Cell (WBC) 10.0 [facility]) Specimen (Source) Anatomical Location Collection Method / Collectio n Time Received Time / Laterality Volume Blood (Blood, Venous) Narrative This result has an attachment that is no t available. Laly Ward APRN, R.N. LAB BLOOD ADD-ON Performing Organization Address City/State/ZIP Code Phon e Number [facility], [address] [place], [place] [id number] [facility]) documented in this encounter Visit Diagnoses Not on filedocumented in this encounter Additional Health Concerns Assessment Noted Time PHQ-9 Depression Total Score: 16 02/11/2021 12:00 AM C DT documented as of this encounter Care Teams Seam Rubbing Machine Operator Relationship Specialty Start Date End Date Elsewhere, Pcp PCP - General Family Medicine 12/25/21 documented as of this encounter
--- OUTSIDE RECORDS SUMMARY | 2022-08-08 23:00 | XMS_ITS | Encounter Summary ---
:1965 Author Organization [facility] Address [address] [place] [address] Care Team Providers Name Role Phone Elsewhere, Pcp Primary Care Provider Unavailable Reason for Referral Outpatient (Routine) - Closed Specialty Diagnoses / Procedures Referred By Contact Refer red To Contact Diagnoses Arthroplasty Total Shoulder Replacement Status Post Left Alfredo Herrera O.P.A.-C. [facility] Procedures DX Shoulder Left Ingrowth Series 5 Views [address] [place] [phone] Referral ID Status Reason Start Date Expiration Date Visits Requ ested Visits Authorized [id number] Closed 02/25/2022 02/25/2023 1 1 Outpatient (Routine) - Closed Specialty Diagnoses / Procedures Referred By Contact Refer red To Contact Orthopedic Surgery Diagnoses Arthroplasty Total Shoulder Replacement Status Post Left Alfredo Herrera, [facility] Anh [address] [place] [phone] Referral ID Status Reason Start Date Expiration Date Visits Requ ested Visits Authorized [id number] Closed 02/25/2022 02/25/2023 1 1 Scheduling Instructions 6 wk f/u L TSA Reason for Visit Reason Comments Pre-visit Testing Orders Encounter Details Date Type Department Care Team Description 02/25/2022 Clinical Communication Department of Jam Pre- visit Testing Orthopedic Surgery Cyrus Souza M.D. Orders in [place], [address] [place], [place] [address] [facility] [address] [place], [place] [phone] (Work) [phone] Social History Tobacco Use Types Packs/Day Years [...] Name Type Priority Associated Diagnoses Order S [facility] Orthopedic Surgery Outpatient Referral Routine Arthroplasty [...] as of this encounter Care Teams Chief Airport Guide Relationship Specialty Start Date End Date Elsewhere, Pcp PCP - General Family Medicine 12/25/21 documented as of this encounter
--- OUTSIDE RECORDS SUMMARY | 2022-08-08 23:00 | XMS_ITS | Encounter Summary ---
:1965 Author Organization [facility] Address [address] [place] [address] Care Team Providers Name Role Phone Elsewhere, Pcp Primary Care Provider Unavailable Encounter Details Date Type Department Care Team Description 01/08/2022 Clinical Communication Pharmacy Prior Auth ОЛЬГА Carrera M.D. [phone] Social History Tobacco Use Types Packs/Day Years [...] Camelia CINTRON. Thank you, The OPPA Team MAKER documented in this encounter Plan of Treatment Not on filedocumented as of this encounter Visit Diagnoses Not on filedocumented in this encounter Additional Health Concerns Assessment Noted Time PHQ-9 Depression Total Score: 16 02/11/2021 12:00 AM C DT documented as of this encounter Care Teams Machine Binding Folder Relationship Specialty Start Date End Date Elsewhere, Pcp PCP - General Family Medicine 12/25/21 documented as of this encounter
--- OUTSIDE RECORDS SUMMARY | 2022-08-08 23:00 | XMS_ITS | Encounter Summary ---
:1965 Author Organization [facility] Address [address] [place] [address] Care Team Providers Name Role Phone Elsewhere, Pcp Primary Care Provider Unavailable Reason for Visit Reason Comments OPAT Normal labs Encounter Details Date Type Department Care Team Description 02/09/2022 Clinical Communication Section of Ruth Eddy (Normal labs) Infectious T, R.N. Diseases in [address] [place] [phone] [place] [address] [place], [place] (Work) [phone] Social History Tobacco Use Types Packs/Day Years [...] you attend adventist or Patient refused 2021 christian services? Do [...] Provider: Dennis TA [facility], phone: [phone], fax: [phone] Labs and site care at [facility], phone: [phone] Antimicrobial(s) currently prescribed: See Med List Hyperlink [...] as of this encounter Care Teams Clinical Project Leader Relationship Specialty Start Date End Date Elsewhere, Pcp PCP - General Family Medicine 12/25/21 documented as of this encounter
--- OUTSIDE RECORDS SUMMARY | 2022-08-08 23:00 | XMS_ITS | Encounter Summary ---
:1965 Author Organization [facility] Address [address] [place] [address] Care Team Providers Name Role Phone Elsewhere, Pcp Primary Care Provider Unavailable Reason for Visit Outpatient (Routine) - Closed Specialty Diagnoses / Procedures Referred By Contact Refer red To Contact Infectious Diseases Diagnoses Aftercare Total [facility]er [facility]thro[facility] [address] [place] [phone] Referral ID Status Reason Start Date Expiration Date Visits Requ ested Visits Authorized [id number] Closed 01/01/2022 01/01/2023 1 1 Encounter Details Date Type Department Care Team Description 02/25/2022 Comprehensive Visit Section of Christiano Nixon M.D. [address] [place] [phone] Mcfp Antibiotic Treatment (Primary Dx); Infectious Diseases Russell Santos M.D. [address] [place] [phone] Infection Shoulder Prosthesis Subsequent ; in [place], Direct Infecti on Of Left Shoulder In Infectious And Parasitic Diseases Classified Elsewhere ([facility]); [place] Aftercare Total Shoulder Art hroplasty [address] [place] [phone] Social History Tobacco Use Types Packs/Day [...] you attend taoist or Patient refused 2021 latter day services? [...] 56 y.o. Birthdate: 1965 Sex: female Address: [address] [place] [phone] Referring Provider: Jose Guadalupe Nixon M.D. REASON [...] resistance on OSH AST. She presented to [facility] (unclear if on antibiotics) for further evaluation given persistent L shoulder pain 08/2021 prompting aspiration (09/25/21) which revealed elevated TNC (84116) with 81% PMNs with cultures positive for [...] thorough debridement.??The patient was subsequently admitted to ON LICENSE [...] is consistent with aspiration results from original [facility] evaluation which is likely retail representative of the culprit organism causing her [...] of Infectious Diseases OPAT monitoring program at [phone] after dismissal. Primary service to follow labs while patient is hospitalized. [facility] pharmacist to adjust dosing after dismissal 4. [...] 150 mg by mouth every morning. ??? wwptakzrxw-sdoglaeabgivp-ryei (ESGIC) 50-325-40 mg per tablet Take 1 [...] 11 mo ago Resulting Agency CULTURE RESULT??Abnormal?? [facility] CULTURE 1+ Staphylococcus coagulase negative [facility] GRAM STAIN ? 1+ PMNs [facility] GRAM STAIN ? No organisms seen [facility] GRAM STAIN ? 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 Hepatic Function Panel ??? Basic Metabolic Panel Spent 36 minutes in total time both vjgy-jk-hnue and non srzg-cg-pdwp to face documented in this encounter Plan [...] 02/25/2022 DTL Black/ mL/min/BSA 11:19 AM CDT Montserratian Comment: ----ADDITIONAL INFORMATION---- Estimated GFR [...] City/State/ZIP Code Phon e Number [facility] - [address] [place] [address] [place] [place] [address] Laboratories-[facility] 200 [facility] Hepatic Function Panel (02/25/2022 10:09 AM CDT) [facility] gist Method Time Signature Bilirubin, Total, [...] City/State/ZIP Code Phon e Number [facility] - [address] [place], [place] [address] [facility] [place] [address] [facility] [address] documented in this encounter Visit Diagnoses Diagnosis Rn Radiology Antibiotic Treatment - Primary Infection Shoulder Prosthesis Subsequent Direct Infection Of Left Shoulder In Inf ectious And Parasitic Diseases Classified Elsewhere (HCC) Aftercare Total Shoulder Arthroplasty documented in this encounter Additional Health Concerns Assessment Noted Time PHQ-9 Depression Total Score: 16 02/11/2021 12:00 AM C DT documented as of this encounter Care Teams Trimming Operator Relationship Specialty Start Date End Date Elsewhere, Pcp PCP - General Family Medicine 12/25/21 documented as of this encounter
--- OUTSIDE RECORDS SUMMARY | 2022-08-08 23:00 | XMS_ITS | Encounter Summary ---
:1965 Author Organization [facility] Address [address] [place] [phone] Care Team Providers Name Role Phone Elsewhere, Pcp Primary Care Provider Unavailable Reason for Referral Outpatient (Routine) - Closed Specialty Diagnoses / Procedures Referred By Contact Refer red To Contact Infectious Diseases Diagnoses Aftercare Total Shoulder Arthroplasty Jose Guadalupe Nixon [place] M.D. 200 [place] [address] Referral ID Status Reason Start Date Expiration Date Visits Requ ested Visits Authorized [id number] Closed 01/01/2022 01/01/2023 1 1 L FOOD SERVICE SUPERVISOR Reason for Visit Reason Comments OPAT Post Hospital Follow-up Encounter Details Date Type Department Care Team Description 01/01/2022 Clinical Communication RST HIM MATTHEW Nixon; Post [facility] [address] [place] [address] Jose Guadalupe Garcia M.D. Follow-up [place], [place] [address] [place] [phone] [place] [phone] Social History Tobacco Use Types Packs/Day Years [...] you attend sabianism or Patient refused 2021 anglican services? Do you belong to any clubs or No 05/17/2022 organizations such as sabianism groups, unions, fraEnventum or athletic groups, or school groups? How [...] Name Type Priority Associated Diagnoses Order S [facility] Infectious Disease Outpatient Routine Aftercare [...] M.D. LAB BLOOD ADD-ON Performing Organization Address City/State/[facility] Phon e Number [facility] - [address] [place] [phone] [address] CRP (C-Reactive Protein) (02/25/2022 10:09 AM CDT) P athologist Signature C-Reactive <3.0 <=8.0 mg/L 02/25/2022 DTL Protein (CRP), 11:34 AM CDT S Specimen Anatomical Collection Method Collection Time Receive d Time (Source) Location / / Volume Laterality Blood (Blood, 02/25/2022 10:09 02/25/2022 Venous) AM CDT 11:00 AM CDT Jose Guadalupe Nixon M.D. LAB BLOOD ADD-ON Performing Organization Address [facility] Phon e Number [facility] - [address] (ABNORMAL) CBC with Differential, Blood (02/25/2022 [...] Address City/State/ZIP Code Phon e Number [facility] - [address] [place], [place] [address] [facility] [place] [address] Laboratories-[facility] [address] documented in this encounter Visit Diagnoses Diagnosis Aftercare Total Shoulder Arthroplasty - Primary documented in this encounter Additional Health Concerns Assessment Noted Time PHQ-9 Depression Total Score: 16 02/11/2021 12:00 AM C DT documented as of this encounter Care Teams Coal Unloader Relationship Specialty Start Date End Date Elsewhere, Pcp PCP - General Family Medicine 12/25/21 documented as of this encounter
--- OUTSIDE RECORDS SUMMARY | 2022-08-08 23:00 | XMS_ITS | Encounter Summary ---
:1965 Author Organization [facility] Address [address] [place] [address] Care Team Providers Name Role Phone Elsewhere, Pcp Primary Care Provider Unavailable Encounter Details Date Type Department Care Team Description 01/05/2022 Clinical Communication Section of Infectious Ed [facility] in [place], , COUNSELING DEPARTMENT CHAIR, R.N. [place] 200 [facility] 200 [place] [phone] Social History Tobacco Use Types Packs/Day Years [...] you attend spiritism or Patient refused 2021 roman catholic services? [...] Ward APRN, C.N.P. - 01/05/2022 2:17 PM PAINT FACTORY WORKER Left shoulder synovial fluid culture from 12/30 has been reported for growth of oxacillin sensitive Staphylococcus epidermidis. No change recommended to the patient's current regimen of ceftriaxone. T FACTORY WORKER Telephone Encounter - Laly Ward APRN, C.N.P. - 01/05/2022 2:17 PM PAINT FACTORY WORKER ----- Message from Su Greene, Pharm.D., R.Ph. sent at 01/05/2022 9:51 AM PAINT FACTORY WORKER ----- Patient with shoulder infection (with previous [...] changes please message RST [facility] PHARMACIST pool. If urgent, page [phone] M-F 9am-5 pm T FACTORY WORKER documented in this encounter Plan of Treatment Not on filedocumented as of this encounter Visit Diagnoses Not on filedocumented in this encounter Additional Health Concerns Assessment Noted Time PHQ-9 Depression Total Score: 16 02/11/2021 12:00 AM C DT documented as of this encounter Care Teams Rate Examiner Relationship Specialty Start Date End Date Elsewhere, Pcp PCP - General Family Medicine 12/25/21 documented as of this encounter
--- OUTSIDE RECORDS SUMMARY | 2022-08-08 23:00 | XMS_ITS | Encounter Summary ---
:1965 Author Organization [facility] Address [address] [place] [address] Care Team Providers Name Role Phone Elsewhere, Pcp Primary Care Provider Unavailable Reason for Referral MRI/CAT/PET Scan (Routine) - Closed Specialty Diagnoses / Procedures Referred By Contact Refer red To Contact Radiology Diagnoses Painful Total Joint Arthroplasty Initial ([facility]) Michael Chino M.D. [facility] Procedures CT Shoulder Left without IV Contrast [address] [place] [phone] Referral ID Status Reason Start Date Expiration Date Visits Requ ested Visits Authorized [id number] Closed 02/25/2022 02/25/2023 1 1 Reason for Visit MRI/CAT/PET Scan (Routine) - Closed Specialty Diagnoses / Procedures Referred By Contact Refer red To Contact Radiology Diagnoses Painful Total Joint Arthroplasty Initial ([facility]) Michael Chino M.D. [facility] Procedures CT Shoulder Left without IV Contrast [address] [place] [phone] Referral ID Status Reason Start Date Expiration Date Visits Requ ested Visits Authorized [id number] Closed 02/25/2022 02/25/2023 1 1 Encounter Details Date Type Department Care Team Description 02/25/2022 Hospital Encounter Department of Michael Chino Total Joint Radiology, Severiano Celaya M.D. Arthropl [facility]) [place], [place] [address] [place] [phone] Social History Tobacco Use Types Packs/Day Years [...] you attend nondenominational or Patient refused 2021 lutheran services? Do [...] THC multivit-min/iron/folic/ Take 1 tablet by 0 [id number] (HAIR, SKIN AND mouth daily. NAILS ADVANCED [...] (two) times a day for 14 days. acetaminophen (TYLENOL) Take 2 capsules 0 022 06/21/2022 500 mg capsule (1,000 mg total) by mouth every 6 (six) hours as needed for pain. Start the day of surgery. aspirin 325 mg tablet Take 1 tablet (325 mg 90 tablet 3 02/26/2022 total) by mouth daily. aspirin 325 mg tablet Take 1 tablet (325 mg 0 01/202202/26/2022 total) by mouth every evening. Banophen 25 mg capsule Take 75 mg by mouth 0 01/2702/26/2022 at bedtime. cefTRIAXone (ROCEPHIN) 2 g. 0 02/04/2022 100 mg/mL injection cholecalciferol (VITAMIN Take 125 mcg by mouth 0 06/25/2022 D3) 125 mcg (5,000 Unit) every morning. tablet cyanocobalamin, vitamin Take 1 tablet by 0 202106/21/2022 B-12, 2,500 mcg lozenge mouth daily. cyanocobalamin, vitamin Place 2,500 mcg under 3 [...] mouth 0 06/17/2022 mg tablet at bedtime. sodium chloride 0.9 % Infuse 5 mL [...] documented as of this encounter Care Teams Salesperson Men'S Furnishings Relationship Specialty Start Date End Date Elsewhere, Pcp PCP - General Family Medicine 12/25/21 documented as of this encounter
--- OUTSIDE RECORDS SUMMARY | 2022-08-08 23:00 | XMS_ITS | Encounter Summary ---
:1965 Author Organization [facility] Address [address] [place] [address] Care Team Providers Name Role Phone Elsewhere, Pcp Primary Care Provider Unavailable Reason for Visit Outpatient (Routine) - Closed Specialty Diagnoses / Procedures Referred By Contact Refer red To Contact Orthopedic Surgery Diagnoses Pain Shoulder Left Alfredo Hrerera, [facility] [address] [place] [phone] Referral ID Status Reason Start Date Expiration Date Visits Requ ested Visits Authorized [id number] Closed 12/30/2021 12/30/2022 1 1 Encounter Details Date Type Department Care Team Description 02/25/2022 Office Visit Department of Orthopedic Cyrus Polk , Pain Shoulder Left Surgery in [facility] [address] [place] [address] [address] [place] [phone] Social History Tobacco Use Types Packs/Day Years [...] you attend gnosticist or Patient refused 2021 religion services? Do you belong to any clubs or No 05/17/2022 organizations such as gnosticist groups, [employer], fraChorus or athletic groups, or school groups? How [...] surgery may involve the use of a biomedical photographer made by a [place] or one of my partners have collaborated to design, develop, or improve orthopedic implants, instruments, or products. Both the [facility] and the individual surgeons involved receive royalty payments from the use of those specific devices at other institutions, but no royalties or any other payments are paid for the use of those devices with any [facility] patient. The clinical rationale for the use of those devices as well as the availability and applicability of alternative devices was reviewed. He understands that the final decision for the use of a specific biomedical photographer often is made at the time [...] as of this encounter Care Teams Auto Electrical Technician Relationship Specialty Start Date End Date Elsewhere, Pcp PCP - General Family Medicine 12/25/21 documented as of this encounter
--- OUTSIDE RECORDS SUMMARY | 2022-08-08 23:00 | XMS_ITS | Encounter Summary ---
:1965 Author Organization [facility] Address 200 [place] [address] Care Team Providers Name Role Phone Elsewhere, Pcp Primary Care Provider Unavailable Encounter Details Date Type Department Care Team Description 02/26/2022 Surgery RST [facility] OR Cyrus Polk, ARTHROPLASTY REPLACEMENT 201 [facility] [place] [phone] 200 [facility] [phone] [place] [address] Social History Tobacco Use Types Packs/Day Years [...] you attend temple or Patient refused 2021 taoist services? Do [...] or the highest technical, or vocational p [employer] degree you have received? Sex Assigned at [...] THC multivit-min/iron/folic/ Take 1 tablet by 0 [id number] (HAIR, SKIN AND mouth daily. NAILS ADVANCED [...] - 02/27/2022 8:05 AM CDT Orthopedic Service: [facility] Admission Day: 02/26/2022 SUBJECTIVE POD1. She [...] am until 6 pm, please page the [facility] pager at [phone] For urgent matters from 6 pm until 6 am, please page [facility] at [phone] Michael Chino M.D. - 02/26/2022 3:03 PM CDT Orthopedic Service: [facility] Admission Day: 02/26/2022 SUBJECTIVE Patient [...] am until 6 pm, please page the [facility] pager at [phone] For urgent matters from 6 pm until 6 am, please page [facility] at [phone] Clemente Buck, Pharm.D., R.Ph. - 02/26/2022 9:17 [...] Take 150 mg by mouth every morning. xcajweowyg-atxwhvdlciwzl-jlag (ESGIC) 50-325-40 mg per tablet Past Week [...] 1 spray as needed. 5 mg THC multivit-min/iron/folic/iuy435 (HAIR, SKIN AND NAILS ADVANCED ORAL) 02/25/2022 [...] (HCC) ??? Nicotine Dependence Unspecified ??? Other Internet Technology Manager Current Drug Therapy ??? Direct Infection Of [...] Right Lives With: Alone Receives Help From: station attendant, Family, Friend(s) ADL Assistance: Required assistance ADL Assistance Comments: Gets help from [employer] CARRIAGE OPERATOR for her bath/shower and for her meals IADL/Homemaking Assistance: Required assistance IADL/Homemaking Assistance Comments: Gets help for housecleaning Driving: Independent Driving Comments: takes her cane and medical alert with her. Occupational Role: On disability Occupational Role Comments: Previously worked at a [employer] and [employer] Prior Mobility/Functional Transfers Level of [place]: Modified independent Previous Transfer/Mobility Assistance Comments: Patient [...] mask during therapy session: yes Outcome Measures [facility] Inpatient Short Form: -[facility] Basic Mobility (V.2) How much help [...] AM-PAC Basic Mobility (V.2) Raw Score: 24 -[facility] Basic Mobility (V.2) Standardized Score: 57.68 Interpretation: Clinicians answer the -[facility] Inpatient Short Form based on observed [...] Prescriptions were sent and filled at the [facility] pharmacy. Catalina Mccloud R.N. - 02/27/2022 [...] elsewhere status post placement antibiotic spacer. A medical practice assistant was necessary for one or more [...] be placed with approximately 70% contact with [place] bone. The more superior aspect of the [...] of antibiotic spacer, implantation of reverse arthroplasty, [id number] Cyrus Polk M.D. CT CT Job ID: [id number] documented in this encounter Plan of Treatment [...] [facility] - [address] [place], [place] [address] [facility] [place] [address] [facility] [address] [facility] (ABNORMAL) Basic Metabolic Panel (02/26/2022 3:47 PM [...] 02/26/2022 DTL Black/ mL/min/BSA 6:27 PM CDT [place] Comment: ----ADDITIONAL INFORMATION---- Estimated GFR calculated using [...] [facility] - [address] [place], [place] [address] [facility] [address] [facility] [address] [facility] (ABNORMAL) CBC with Differential, Blood (02/26/2022 [...] [facility] - 200 [place], [place] [address] [facility] [address] [facility] [...] Comment: Specimen Source Site: Tissue 1 Narrative [facility] - 03/12/2022 2:02 PM CDT Bacterial Culture: Placed in Bactec aero bic and Bactec anaerobic bottles Cyrus Polk M.D. LAB MICROBIOLOGY - GENERAL O RDERABLES Performing Organization Address City/[facility] Phon e Number [facility] - 200 [place], [place] [address] [facility] [place] [address] [facility] 200 [facility] Bacteria Cult, Aerobe / Anaerobe+Susc (02/26/2022 1:00 PM CDT) Patholo gist Method Time Signature Bacteria Cult, No growth 03/12/2022 DTL Aerobe/Anaerob after 14 2:02 PM CDT e+Susc days of incubation. Specimen Anatomical Collection Method Collection Time Receive d Time (Source) Location / / Volume Laterality Shoulder, Left 02/26/2022 1:00 PM 022 1:38 CDT PM CDT Comment: Specimen Source Site: Tissue 3 Narrative [facility] - 03/12/2022 2:02 PM CDT Bacterial Culture: Placed in Bactec aero bic and Bactec anaerobic bottles Cyrus Plok M.D. LAB MICROBIOLOGY - GENERAL O RDERASARAH Performing Organization Address City/[facility] Phon e Number [facility] - [address] [place], [place] [address] [facility] [address] [facility] 200 [facility] Bacteria Cult, Aerobe / Anaerobe+Susc (02/26/2022 1:00 PM CDT) Patholo gist Method Time Signature Bacteria Cult, No growth 03/12/2022 DTL Aerobe/Anaerob after 14 2:02 PM CDT e+Susc days of incubation. Specimen Anatomical Collection Method Collection Time Receive d Time (Source) Location / / Volume Laterality Shoulder, Left 02/26/2022 1:00 PM 022 1:36 CDT PM CDT Comment: Specimen Source Site: Tissue 2 Narrative [facility] - 03/12/2022 2:02 PM CDT Bacterial Culture: Placed in Bactec aero bic and Bactec anaerobic bottles Cyrus Polk M.D. LAB MICROBIOLOGY - GENERAL O RDERABLES Performing Organization Address City/State/ZIP Code Phon e Number [facility] - [address] [place] [address] [address] [facility] [place] [address] [facility] 200 [facility] Surgical Pathology, Frozen Lab (02/26/2022 1:00 [...] permanent sections. ??Grossed by Nan Ledezma M.S., [facility]). Block Summary A Left shoulder 03/01/2022 METH [...] [facility] - [address] [place], [place] [address] [place] [address] [facility] [...] 02/26/2022 02/27/2022 acetaminophen tablet 1,000 mg (TYLENOL) 6124 (Given - Provider: Tanesha Butt)6661 (Given - Provider: Tanesha Butt) 0438 (Given - Provider: Lauren Mckeon RBrittonN.)1104 (Given - Provider: Catalina Mccluod R.N.) 1,000 mg, oral, Every 6 hours, [...] mg of calcium, oral, Every 2 hour [place] N, indigestion, Starting on Tue02/26/22 at 1451, [...] documented as of this encounter Care Teams Package Line Operator Relationship Specialty Start Date End Date Elsewhere, Pcp PCP - General Family Medicine 12/25/21 documented as of this encounter
--- OUTSIDE RECORDS SUMMARY | 2022-08-08 23:01 | XMS_ITS | Encounter Summary ---
:1965 Author Organization [facility] Address [address] [place] [address] Care Team Providers Name Role Phone Elsewhere, Pcp Primary Care Provider Unavailable Encounter Details Date Type Department Care Team Description 12/30/2021 Anesthesia Event RST [facility] OR Clifford Young M.D. [address] [place] [phone] [address] [facility] Collin Fernández M.D. [address] [place] [phone] [place] [phone] Anesthesia Record Procedure Summary [...] h andoff to the receiving staff during [facility] we 1. Identified the patient 2. [...] Ayakalashell Andreyscout howard T, (created via procedure INSURANCE EXAMINING CLERK, STUDY DIRECTOR INSURANCE EXAMINING CLERK, CRN A documentation); Mask Ventilation: Easy mask; [...] you attend christian or Patient refused 2021 sabianist services? Do [...] or the highest technical, or vocational p [facility] degree you have received? Sex Assigned at Date Recorded Female 03/01/2019 10:12 AM CDT documented as of this encounter OR Notes Anesthesia Postprocedure Evaluation - Clifford Young M.D. - 12/30/2021 3:55 PM CST Patient: Angie Mosquera Procedure Summary Date: 12/30/21 Room / Location: [address] / [facility] in [place], [place] Anesthesia Start: 1250 Anesthesia Stop: 1550 [...] Post Op nausea/vomiting: none Hydration status: euvolemic DYNAMICS PROFESSOR Anesthesia Procedure Notes - Emre Rodriguez APRN, CRNA - 12/30/2021 2:29 PM AERODYNAMICS PROFESSOR Associated Order(s): Airway Airway Date/Time: 12/30/2021 1:02 [...] successful Airway event: no complications ATTESTATION STATEMENT DYNAMICS PROFESSOR Anesthesia Preprocedure Evaluation - Clifford Young M.D. - 12/30/2021 1:23 PM CST Preprocedure Anesthesia & H&P Assessment Procedure Summary Anesthesia Start Date/Time: 12/30/21 1250 Procedure: ARTHROPLASTY RESECTION SHOULDER. 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 Location: [address] / [facility] in [place], [place] Providers: Cyrus Polk M.D. Pertinent components [...] with patient /legal guardian or through an paper bags sewing machine operator. Risks/Benefits/Alternatives of Blood transfusion discussed with patient / legal guardian, including an opportunity to ask questions and/or decline some or all transfusion therapies. The patient / legalguardian consented to the use of all blood products, as deemed medically necessary Approval to Proceed: approved for anesthesia DYNAMICS PROFESSOR Anesthesia Procedure Notes - Clifford Khanna M.D. - 12/30/2021 12:56 PM AERODYNAMICS PROFESSOR Associated Order(s): Regional Block Regional Block Date/Time: [...] successful procedure Other complications: none ATTESTATION STATEMENT DYNAMICS PROFESSOR documented in this encounter Plan of Treatment Not on filedocumented as of this encounter Procedures Procedure Name Priority Date/Time Associated Comments Diagnosis LDA ANE ENDOTRACHEAL Routine 12/30/2021 1:02 PM R esults for this AIRWAY AERODYNAMICS PROFESSOR procedure are i n the results section. MC ANE NERVE BLOCK Routine 12/30/2021 12:56 Resul ts for this WITH ULTRASOUND PM AERODYNAMICS PROFESSOR procedure ar e in the results section. LDA ANE UPPER Routine 12/30/2021 12:56 Results fo r this EXTREMITY PNC PM AERODYNAMICS PROFESSOR procedure are in the results section. ND US GUIDE PLC NDL Routine 12/30/2021 12:56 Resu lts for this PM AERODYNAMICS PROFESSOR procedure are i n the results section. ND INJ ANES BRACHIAL Routine 12/30/2021 12:56 Res ults for this PLEXUS CONT PM AERODYNAMICS PROFESSOR procedure are i n the results section. documented in this encounter Results LDA ANE ENDOTRACHEAL AIRWAY (12/30/2021 1:02 PM AERODYNAMICS PROFESSOR) Narrative Emre Rodriguez APRN, CRNA - 12/30/2021 1:02 PM AERODYNAMICS PROFESSOR Emre Rodriguez APRN, CRNA ? 12/30/2021 ??2:30 [...] ATTESTATION STATEMENT Clifford Young M.D. ANESTHESIA ORDERABLES ND INJ ANES BRACHIAL PLEXUS CONT, ND US GUIDE PLC NDL, LDA ANE UPPER EXTREMITY PNC, MC ANE NERVE BLOCK WITH ULTRASOUND (12/30/2021 12:56 PM AERODYNAMICS PROFESSOR) Narrative Clifford Khanna M.D. - 12/30/2021 12:56 P M AERODYNAMICS PROFESSOR Clifford Khanna M.D. ? 12/30/2021 12:57 PM [...] 5 % injection Given 12/30/2021 1:52 PM AERODYNAMICS PROFESSOR 250 mL intravenous, As needed, Starting on Tue12/30/21 at 1352, Anesthesia Intra-op bupivacaine PF 0.5 % (5 mg/mL) injection Given 12/30/2021 12:45 PM AERODYNAMICS PROFESSOR 10 mL (MARCAINE) intrathecal, As needed, Starting on Tue12/30/21 at 1245, Anesthesia Intra-op ceFAZolin injection 2,000 mg (ANCEF) Given 12/30/2021 2:19 PM AERODYNAMICS PROFESSOR 2 g 2,000 mg (rounded from 1,747.5 [...] dexAMETHasone injection (DECADRON) Given 12/30/2021 1:09 PM AERODYNAMICS PROFESSOR 8 mg intravenous, As needed, Starting on Tue12/30/21 at 1309, Anesthesia Intra-op diphenhydrAMINE injection (BENADRYL) Given 12/30/2021 1:32 PM AERODYNAMICS PROFESSOR 12.5 mg intravenous, As needed, Starting on Tue12/30/21 at 1332, Anesthesia Intra-op ePHEDrine (PF) injection Given 12/30/2021 1:58 PM AERODYNAMICS PROFESSOR 10 mg intravenous, As needed, Starting on Tue12/30/21 at 1346, Anesthesia Intra-op Given 12/30/2021 1:46 PM AERODYNAMICS PROFESSOR 5 mg Given 12/30/2021 1:24 PM AERODYNAMICS PROFESSOR 10 mg fentaNYL injection (SUBLIMAZE) Given 12/30/2021 3:12 PM AERODYNAMICS PROFESSOR 50 mcg intravenous, As needed, Starting on Tue12/30/21 at 1512, Anesthesia Intra-op ketamine injection (KETALAR) Given 12/30/2021 2:43 PM AERODYNAMICS PROFESSOR 20 mg intravenous, As needed, Starting on Tue12/30/21 at 1443, Anesthesia Intra-op lactated ringers New Bag 12/30/2021 12:53 PM AERODYNAMICS PROFESSOR intravenous, Continuous Infusion: Per Instructions PRN, Starting on Tue12/30/21 at 1253, Anesthesia Intra-op ondansetron (PF) injection (ZOFRAN) Given 12/30/2021 3:00 PM AERODYNAMICS PROFESSOR 4 mg intravenous, As needed, Starting on Tue12/30/21 at 1500, Anesthesia Intra-op phenylephrine 80 mcg/mL in Rate/Dose 12/30/2021 3:00 0.4 mcg/kg/min 20.97 NaCl 0.9% 250 mL infusion Change PM AERODYNAMICS PROFESSOR mL/hr intravenous, Continuous Infusion: Per Instructions PRN, Starting on Tue12/30/21 at 1404, Anesthesia Intra-op Rate/Dose Change 12/30/2021 2:36 PM AERODYNAMICS PROFESSOR 0.3 mcg/kg/min 15.728 mL/hr Rate/Dose Change 12/30/2021 2:25 PM AERODYNAMICS PROFESSOR 0.25 mcg/kg/min 13.106 mL/h r phenylephrine injection Given 12/30/2021 2:31 PM AERODYNAMICS PROFESSOR 100 mcg intravenous, As needed, Starting on Tue12/30/21 at 1346, Anesthesia Intra-op Given 12/30/2021 2:12 PM AERODYNAMICS PROFESSOR 100 mcg Given 12/30/2021 2:10 PM AERODYNAMICS PROFESSOR 100 mcg propofol 10 mg/mL infusion New Bag 12/30/2021 1:15 50 mcg/kg/min 2 0.97 mL/hr (DIPRIVAN) PM AERODYNAMICS PROFESSOR intravenous, Continuous Infusion: Per Instructions PRN, Starting on Tue12/30/21 at 1315, Anesthesia Intra-op New Bag 12/30/2021 1:09 PM AERODYNAMICS PROFESSOR 50 mcg/kg/min 20.97 mL/hr propofoL injection (DIPRIVAN) Given 12/30/2021 12:59 PM AERODYNAMICS PROFESSOR 140 mg intravenous, As needed, Starting on Tue12/30/21 at 1259, Anesthesia Intra-op rocuronium injection (ZEMURON) Given 12/30/2021 1:12 PM AERODYNAMICS PROFESSOR 10 mg intravenous, As needed, Starting on Tue12/30/21 at 1301, Anesthesia Intra-op Given 12/30/2021 1:01 PM AERODYNAMICS PROFESSOR 50 mg sugammadex injection (BRIDION) Given 12/30/2021 3:14 PM AERODYNAMICS PROFESSOR 139.8 mg intravenous, As needed, Starting on [...] documented as of this encounter Care Teams Wet Roaster Relationship Specialty Start Date End Date Elsewhere, Pcp PCP - General Family Medicine 12/25/21 documented as of this encounter
--- OUTSIDE RECORDS SUMMARY | 2022-08-08 23:01 | XMS_ITS | Encounter Summary ---
:1965 Author Organization [facility] Address [address] [place] [address] Care Team Providers Name Role Phone Elsewhere, Pcp Primary Care Provider Unavailable Encounter Details Date Type Department Care Team Description 12/29/2021 Hospital Encounter Department of Alfredo Herrera ative Exam; Radiology, Clifton GnozalesPEmilioCBritton Painful Total Joint Arthroplasty Initial ([facility]) Building, in [address] [place] [phone] [place] [address] [place], [place] (Work) [phone] Social History Tobacco Use [...] you attend caodaism or Patient refused 2021 episcopalian services? Do [...] diclofenac sodium Apply 2-4 g topically 0 01/01/ 022 (VOLTAREN) 1 % gel 4 (four) [...] THC multivit-min/iron/folic/ Take 1 tablet by 0 [id number] (HAIR, SKIN AND mouth daily. NAILS ADVANCED [...] bowel movement in the past 36 hrs.). acetaminophen (TYLENOL) Take 2 capsules 0 022 06/21/2022 500 mg capsule (1,000 mg total) by mouth every 6 (six) hours as needed for pain. Start the day of surgery. ARTHRITIS PAIN RELIEF, TAKE TWO TABLETS 6 [...] a day. Per patient usually takes daily HYDROcodone-acetaminophe Take 1 tablet by 0 03/0512/30/2021 [...] for this 2+ VIEWS (most inpatients AM LOG BRANDER Painful Total Joint proc edure are in and all Arthroplasty the results outpatients) Initial (HCC) section. documented in this encounter Results DX Shoulder Left 2+ Views (12/29/2021 10:30 AM LOG BRANDER) Anatomical Region Laterality Modality Upper Extremity, Shoulder, Musculoskeletal RST LOS, Left Digital Radiography Musculoskeletal ARZ LOS, Muskuloskeletal FLA LOS Specimen (Source) Anatomical Collection Method Collection Time Re ceived Time Location / / Volume Laterality 12/29/2021 10:53 AM LOG BRANDER Impressions 12/29/2021 10:57 AM LOG BRANDER Demineralization. Left shoulder arthroplasty revision to a reverse TSA. Developing lucency about the glenoi d component screws when compared back to 11/13/20, compatible with loosening. Pre sumed distal clavicle resection. Incompletely imaged instrumented spinal fusion from the upper cervical spine to the upper thoracic spine. Spinal cord st imulator. At least one old healed left posterior rib fracture. Narrative 12/29/2021 10:57 AM LOG BRANDER EXAM: ??DX SHOULDER LEFT 2+ VIEWS Procedure [...] COVID19 Pending 12/29/2021 12/29/2021 12/29/2021 4:20 PM LOG BRANDER Assessment Noted Time PHQ-9 Depression Total Score: 16 02/11/2021 12:00 AM C DT documented as of this encounter Care Teams Auto Body Mechanic Apprentice Relationship Specialty Start Date End Date Elsewhere, Pcp PCP - General Family Medicine 12/25/21 documented as of this encounter
--- OUTSIDE RECORDS SUMMARY | 2022-08-08 23:01 | XMS_ITS | Encounter Summary ---
:1965 Author Organization [facility] Address [address] [place] [address] Care Team Providers Name Role Phone Elsewhere, Pcp Primary Care Provider Unavailable Encounter Details Date Type Department Care Team Description 12/29/2021 Hospital Encounter Department of Alfredo Herrera ative Exam; Laboratory Medicine A, [facility]A.-[facility]. Painful Total Joint Arthroplasty Initial (HCC) and Pathology, [address] [place] [address], in [place] [phone] [place] [phone] [place] [address] (Work) [place], [place] [phone] (Fax) [phone] Social History Tobacco Use Types Packs/Day Years [...] you attend religion or Patient refused 2021 moravian services? Do [...] THC multivit-min/iron/folic/ Take 1 tablet by 0 [id number] (HAIR, SKIN AND mouth daily. NAILS ADVANCED [...] 12/29/2021 11:34 Results for this RBC AM BLENDER LABORER procedure are i n the results section. CBC WITH Routine 12/29/2021 11:34 Preoperative Ex am Results for this DIFFERENTIAL, B AM BLENDER LABORER Painful Total Joint proce dure are in Arthroplasty Initial the res ults ([facility]) section. TYPE AND SCREEN Routine 12/29/2021 11:34 Preoperative Ex am Results for this AM BLENDER LABORER Painful Total Joint procedur e are in Arthroplasty Initial the res ults ([facility]) section. BASIC METABOLIC Routine 12/29/2021 11:34 Preoperative Ex am Results for this PANEL, S/P AM BLENDER LABORER Painful Total Joint procedur e are in Arthroplasty Initial the res ults ([facility]) section. documented in this encounter Results Antibody Screen, RBC (12/29/2021 11:34 AM BLENDER LABORER) athologist Signature Antibody Negative Negative 12/29/2021 DTL Screen 12:59 PM BLENDER LABORER Specimen Anatomical Collection Method Collection Time Receive d Time (Source) Location / / Volume Laterality Blood 12/29/2021 11:34 12/29/2021 AM BLENDER LABORER 11:58 AM BLENDER LABORER Alfredo Kamara LAB BLOOD BANK TEST ORDERABL ES Performing Organization Address City/State/ZIP Code Phon e Number [facility] - [address] [place], [place] [address] [facility] [place] [address] Laboratories[facility] [address] (ABNORMAL) Basic Metabolic Panel (12/29/2021 11:34 AM BLENDER LABORER) athologist [facility] Potassium, S 4.7 3.6 - 5.2 12/29/2021 DTL mmol/L 12:38 PM BLENDER LABORER Sodium, S 143 135 - 145 12/29/2021 DTL mmol/L 12:38 PM BLENDER LABORER Chloride, S 108 (H) 98 - 107 12/29/2021 DTL mmol/L 12:38 PM BLENDER LABORER Bicarbonate, S 24 22 - 29 12/29/2021 DTL mmol/L 12:38 PM BLENDER LABORER Anion Gap 11 7 - 15 12/29/2021 DTL 12:38 PM BLENDER LABORER BUN (Blood Urea 15 6 - 21 12/29/2021 DTL Nitrogen), S mg/dL 12:38 PM BLENDER LABORER Creatinine 0.83 0.59 - 12/29/2021 DTL 1.04 mg/dL 12:38 PM BLENDER LABORER eGFR-Non 78 >=60 12/29/2021 DTL Black/ mL/min/BSA 12:38 PM BLENDER LABORER [place] Comment: ----ADDITIONAL INFORMATION---- Estimated GFR calculated using the 2009 CKD_EPI creatinine equation. eGFR-Black/ 90 >=60 mL/min/BSA 2021 12:38 PM BLENDER LABORER DTL Comment: ----ADDITIONAL INFORMATION---- Estimated GFR calculated using the 2009 CKD_EPI creatinine equation. Calcium, Total, S 9.1 8.6 - 10.0 mg/dL 12/29/2021 12:3 8 PM BLENDER LABORER DTL Glucose, S 90 70 - 140 mg/dL 12/29/2021 12:38 PM BLENDER LABORER DTL Specimen Anatomical Collection Method Collection Time Receive d Time (Source) Location / / Volume Laterality Blood (Blood, 12/29/2021 11:34 12/29/2021 Venous) AM BLENDER LABORER 12:13 PM BLENDER LABORER Alfredo Kamara LAB BLOOD ADD-ON Performing Organization Address City/State/ZIP [facility] Phon e Number [facility] - 200 [place], [place] [address] [facility] [place] [address] [facility] 200 [facility] Type and Screen (with reflex Antibody ID) (12/29/2021 11:34 AM BLENDER LABORER) [facility] Method Time Signature ABORh A Neg Not applicable 12/29/2021 ETRM 12:59 PM BLENDER LABORER Antibody CANCELED 12/29/2021 ETRM Screen 12:59 PM BLENDER LABORER Comment: Result canceled by the ancillar y. Type & Screen Expiration 02/26/2022 23:59 12/29/19 22 12:59 PM BLENDER LABORER ETRM Testing Location Ara DEFAULT 12/29/2021 11:58 AM BLENDER LABORER ETRM Specimen Anatomical Collection Method Collection Time Receive d Time (Source) Location / / Volume Laterality Blood (Blood, 12/29/2021 11:34 12/29/2021 Venous) AM BLENDER LABORER 11:58 AM BLENDER LABORER Alfredo Kamara LAB BLOOD BANK TEST ORDERABL ES Performing Organization Address City/[facility] Phon e Number [facility] - [address] [place] [phone] [facility] [place] [address] [facility] 200 [facility] (ABNORMAL) CBC with Differential, Blood (12/29/2021 11:34 AM BLENDER LABORER) [facility] Method Time Signature Hemoglobin 11.2 (L) 11.6 - 12/29/2021 DTL 15.0 g/dL 12:02 PM BLENDER LABORER Hematocrit 34.1 (L) 35.5 - 12/29/2021 DTL 44.9 % 12:02 PM BLENDER LABORER Erythrocytes 4.04 3.92 - 12/29/2021 DTL 5.13 12:02 PM BLENDER LABORER x10(12)/L MCV 84.4 78.2 - 12/29/2021 DTL 97.9 fL 12:02 PM BLENDER LABORER RBC Distrib Width 20.2 (H) 12.2 - 12/29/2021 DTL 16.1 % 12:02 PM BLENDER LABORER Platelet Count 324 157 - 371 12/29/2021 DTL x10(9)/L 12:02 PM BLENDER LABORER Leukocytes 5.1 3.4 - 9.6 12/29/2021 DTL x10(9)/L 12:02 PM BLENDER LABORER Neutrophils 3.08 1.56 - 12/29/2021 DTL 6.45 12:02 PM BLENDER LABORER x10(9)/L Lymphocytes 1.39 0.95 - 12/29/2021 DTL 3.07 12:02 PM BLENDER LABORER x10(9)/L Monocytes 0.43 0.26 - 12/29/2021 DTL 0.81 12:02 PM BLENDER LABORER x10(9)/L Eosinophils 0.17 0.03 - 12/29/2021 DTL 0.48 12:02 PM BLENDER LABORER x10(9)/L Basophils 0.05 0.01 - 12/29/2021 DTL 0.08 12:02 PM BLENDER LABORER x10(9)/L Specimen Anatomical Collection Method Collection Time Receive d Time (Source) Location / / Volume Laterality Blood (Blood, 12/29/2021 11:34 12/29/2021 Venous) AM BLENDER LABORER 11:54 AM BLENDER LABORER Alfredo Kamara LAB BLOOD ADD-ON Performing Organization Address City/State/ZIP Code Phon e Number [facility] - [facility] [place], [place] [address] [facility] [place] [address] Laboratories[facility] [address] documented in this encounter Visit Diagnoses Diagnosis Preoperative Exam Painful Total Joint Arthroplasty Initial (HCC) documented in this encounter Additional Health Concerns Assessment Noted Time PHQ-9 Depression Total Score: 16 02/11/2021 12:00 AM C DT documented as of this encounter Care Teams Assistant To The Dean Relationship Specialty Start Date End Date Elsewhere, Pcp PCP - General Family Medicine 12/25/21 documented as of this encounter
--- OUTSIDE RECORDS SUMMARY | 2022-08-08 23:01 | XMS_ITS | Encounter Summary ---
:1965 Author Organization [facility] Address [address] [place] [address] Care Team Providers Name Role Phone Elsewhere, Pcp Primary Care Provider Unavailable Encounter Details Date Type Department Care Team Description 12/30/2021 Surgery RST SEBAS MORAN OR Cyrus Polk, ARTHROPLASTY RESECTION [address] [facility] [place] [address] 0001 [address] [facility] [phone] [place] [phone] Social History Tobacco Use Types Packs/Day Years [...] attend oriental orthodox or Patient refused 2021 synagogue services? Do [...] Comments Blood Pressure 119/74 12/30/2021 12:47 PM BACK LINE COOK Pulse 79 12/30/2021 12:47 PM BACK LINE COOK Temperature 36.8 ??C (98.2 ??F) 12/30/2021 11:22 AM BACK LINE COOK Respiratory Rate 20 12/30/2021 12:47 PM BACK LINE COOK Oxygen Saturation 99% 12/30/2021 12:47 PM BACK LINE COOK Inhaled Oxygen Concentration - - Weight 69.9 kg (154 lb 1.6 12/30/2021 11:22 AM oz) BACK LINE COOK Height 150.5 cm (4' 11.25) 12/30/2021 11:22 AM no shoe s/boots BACK LINE COOK Body Mass Index 30.86 12/30/2021 11:22 AM BACK LINE COOK documented in this encounter Discharge Summaries Dario Carrera M.D. - 01/01/2022 8:50 AM CST DISCHARGE SUMMARY BRIEF OVERVIEW Hospital: [facility] Discharge Provider: Cyrus Polk M.D. Primary Team: [...] RST ROEI OR DISCHARGE DISPOSITION [place] [facility] ACTIVE ISSUES REQUIRING FOLLOW UP Active [...] were provided to the patient and caregiver(s). LINE COOK documented in this encounter Discharge Instructions AttachmentsThe following attachments cannot be sent through Care Everywhere. Continuous Nerve-Block Infusion System: Often called a ???pain pump?? (Prydeinig) documented in this encounter Medications at Time [...] mg capsule 2 (two) times a day. Arnuity Ellipta 100 Inhale 1 puff daily. 0 2021 mcg/actuation diskus inhaler aspirin 325 mg tablet Take 1 tablet (325 mg 0 12/2021 total) by mouth every evening. clindamycin (CLEOCIN T) Apply 1 application 0 1 % external solution topically 2 (two) times a day. Apply to face. diclofenac sodium Apply 2-4 g topically 0 022 (VOLTAREN) 1 % gel 4 (four) times a day as needed. multivit-min/iron/folic/ Take 1 tablet by 0 [id number] (HAIR, SKIN AND mouth daily. NAILS ADVANCED [...] times a 8.6-50 mg per tablet day. Banophen 25 mg capsule Take 75 mg [...] hrs.). acetaminophen (TYLENOL) Take 2 capsules 0 01/01/ 022 06/21/2022 500 mg capsule (1,000 mg total) by mouth every 6 (six) hours as needed for pain. Start the day of surgery. aspirin 325 mg tablet Take 1 tablet (325 mg 90 tablet 3 02/26/2022 total) by mouth daily. aspirin 325 mg tablet Take 1 tablet (325 mg 0 01/202202/26/2022 total) by mouth every evening. cefTRIAXone (ROCEPHIN) 2 g. 0 02/04/2022 100 mg/mL injection cyanocobalamin, vitamin Take 1 tablet by 0 202106/21/2022 B-12, 2,500 mcg lozenge mouth daily. diphenhydrAMINE Take 75 mg by mouth 0 06/17/2022 (BENADRYL) 25 mg tablet at bedtime. oxyCODONE (ROXICODONE) 5 Take 1 tablet (5 [...] signs of local anesthetic systemic toxicity, occur. LINE COOK Fatemeh Pena R.N. - 01/01/2022 5:28 PM [...] when she got up for the day. LINE COOK Ruth Gonzalez PAna, D.P.T. - 01/01/2022 4:29 [...] mask during therapy session: no Outcome Measures [facility] Inpatient Short Form: -[facility] Basic Mobility (V.2) How much help [...] 3-5 steps with a railing?: A Little AM-[facility] Basic Mobility (V.2) Raw Score: 23 -[facility] Basic Mobility (V.2) Standardized Score: 50.88 Interpretation: Clinicians answer the -[facility] Inpatient Short Form based on observed [...] quad cane since it is not available [facility] by prescription. Barriers to Discharge Home: [...] (min): 23 min Ruth Gonzalez P.T., D.P.T. LINE COOK Elvira Duncan R.N. - 01/01/2022 3:21 PM [...] educational pamphlet Continuous Nerve-Block Infusion System ( [id number]).?? Discussed at home removal of nervecatheter, signs of toxicity, and provided the 20/06 number to call with questions.?? All questions answered. On-Q infusion will end Wednesday 01/03 at 2230. Informed patient she may wait until Tuesday morning to remove if she is sleeping. Note OnQ will not be empty as running at 6ml/hr with fill of 550cc. She is aware of this. LINE COOK Thao You L.I.C.S.W., M.S.W. - 01/01/2022 11:23 AM CST SUBJECTIVE Referral Data The patient was seen for ongoing discharge needs. A list of infusion options (that patient/family geographically resides or requests) has been provided to and reviewed with patient/family. Disclaimers: Financial disclosure provided informing patient of our ownership and financial relationship of the [facility]/home health & hospice agencies. Reviewed insurance coverage, [...] Address Phone Fax Patient Preferred [facility] Infusion and IV Therapy [address], [place] [address] [phone] -- Contact: Intake NURSING: - Adjust the [...] draws will be managed by Outpatient Facility: [facility] Address: [address] [place] [address] Contact: Princess Jimenez will provide IV access [...] continue to follow. Joe Ervin, M.S.WBritton 01/01/2022 LINE COOK Gucci Salvador M.D. - 01/01/2022 10:45 AM CST DEMOGRAPHIC INFORMATION [facility] Number:[id number] Patient Name: Angie Ashley Mosquera Service: [...] questions answered to patient's satisfaction. Please page [phone] for questions. 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 [id number] Pamela Leonard PharmAlejandrina, R.Ph. - 01/01/2022 10:14 [...] on post-operative opioids Pamela Crawford PharmAlejandrina, R.Ph. [phone] Jose Guadalupe Washington M.D. - 01/01/2022 8:31 AM CST Infectious Diseases Orthopedic Surgery [facility] Consulting Service Progress Note [...] Date/Time Bacteria / Mandi Culture, Blood #2 [[id number]] Collected: 12/31/21 1604 Lab Status: In process Specimen: Blood, Peripheral Draw Updated: 12/31/21 1651 Narrative: Received Bactec aerobic and Bactec anaerobic bottles Specimen Information: Specimen ID: [id number] Specimen Source: Blood, Peripheral Draw Specimen Comment: Specimen Source Site: Blood Specimen Collection Start Date: 12/31/2021 4:05 PM Specimen Received Date: 12/31/2021 4:51 PM Specimen ID: [id number] Specimen Source: Blood, Peripheral Draw Specimen Comment: Specimen Source Site: Blood Specimen Collection Start Date: 12/31/2021 4:05 PM Specimen Received Date: 12/31/2021 4:51 PM Specimen ID: [id number] Specimen Source: Blood, Peripheral Draw Specimen Comment: Specimen Source Site: Blood Specimen Collection Start Date: 12/31/2021 4:04 PM Specimen Received Date: 12/31/2021 4:51 PM Bacteria / Mandi Culture, Blood #1 [[id number]] Collected: 12/31/21 1552 Lab Status: In process Specimen: Blood, Peripheral Draw Updated: 12/31/21 1651 Narrative: Received Bactec aerobic and Bactec anaerobic bottles Specimen Information: Specimen ID: [id number] Specimen Source: Blood, Peripheral Draw Specimen Comment: Specimen Source Site: Blood Specimen Collection Start Date: 12/31/2021 3:52 PM Specimen Received Date: 12/31/2021 4:50 PM Specimen ID: [id number] Specimen Source: Blood, Peripheral Draw Specimen Comment: Specimen Source Site: Blood Specimen Collection Start Date: 12/31/2021 3:53 PM Specimen Received Date: 12/31/2021 4:50 PM Specimen ID: [id number] Specimen Source: Blood, Peripheral Draw Specimen Comment: Specimen Source Site: Blood Specimen Collection Start Date: 12/31/2021 3:53 PM Specimen Received Date: 12/31/2021 4:50 PM Bacteria Cult, Aerobe / Anaerobe+Susc [[id number]] Collected: 12/30/21 1411 Lab Status: Preliminary result Specimen: Shoulder, Left Updated: 12/31/21 1601 Bacteria Cult, Aerobe/Anaerobe+Susc No growth to date. Narrative: Bacterial Culture: Placed in Bactec aerobic and Bactec anaerobic bottles Bacteria Cult, Aerobe / Anaerobe+Susc [[id number]] Collected: 12/30/21 1405 Lab Status: Preliminary result Specimen: Synovial Fluid, Left Shoulder Updated: 12/31/21 1601 Bacteria Cult, Aerobe/Anaerobe+Susc No growth to date. Narrative: Bacterial Culture: Placed in Bactec aerobic and Bactec anaerobic bottles Bacteria Cult, Aerobe / Anaerobe+Susc [[id number]] Collected: 12/30/21 1404 Lab Status: Preliminary result Specimen: Shoulder, Left Updated: 12/31/21 1601 Bacteria Cult, Aerobe/Anaerobe+Susc No growth to date. Narrative: Bacterial Culture: Placed in Bactec aerobic and Bactec anaerobic bottles Bacteria Cult, Aerobe / Anaerobe+Susc [[id number]] Collected: 12/30/21 1403 Lab Status: Preliminary result Specimen: Shoulder, Left Updated: 12/31/21 1601 Bacteria Cult, Aerobe/Anaerobe+Susc No growth to date. Narrative: Bacterial Culture: Placed in Bactec aerobic and Bactec anaerobic bottles Bacteria Cult, Aerobe / Anaerobe+Susc [[id number]] Collected: 12/30/21 1403 Lab Status: Preliminary result Specimen: Shoulder, Left Updated: 12/31/21 1601 Bacteria Cult, Aerobe/Anaerobe+Susc No growth to date. Narrative: Bacterial Culture: Placed in Bactec aerobic and Bactec anaerobic bottles SARS Coronavirus 2, Molecular Detection, PCR, Varies Asymptomatic [[id number]] Collected: 12/29/21 1111 Lab Status: Final result [...] ----ADDITIONAL INFORMATION---- This RT-PCR test using the Intexys SARS-CoV-2 Assay ( Vivonet) performed on the Intexys Two Module System has received Emergency Use Authorization (EUA) by the U.S. Food and Drug Administration, and is modified from the dogman/woman's instructions with a bridging study. Performance characteristics were verified by [facility] in a manner consistent with CLIA requirements. Visit the CDC website: https://www.cdc.gov/coronavirus/ for the most recent guidelines on Coronavirus testing. Fact Sheet for Healthcare Providers: https://www.fda.gov/media/586851/download Fact Sheet for Patients: https://www.fda.gov/media/259019/download ASSESSMENT / PLAN 56-year-old female with a [...] is consistent with aspiration results from original [facility] evaluation which is likely service liaison representative of the culprit organism causing her [...] of Infectious Diseases OPAT monitoring program at [phone] after dismissal. Primary service to follow labs while patient is hospitalized. [facility] pharmacist to adjust dosing after dismissal 4. [...] off at this time. Please page Ortho [facility]-ID service pager at [phone] with any questions. ?? Jose Guadalupe Nixon [...] Overall Comments Patient to dismiss with OnQ. LINE COOK Dario Carrera M.D. - 01/01/2022 7:00 AM [...] - Date/Time Bacteria Cult, Aerobe / Anaerobe+Susc [[id number]] Collected: 12/30/21 1411 Lab Status: In process Specimen: Shoulder, Left Updated: 12/30/21 1540 Narrative: Bacterial Culture: Placed in Bactec aerobic and Bactec anaerobic bottles Bacteria Cult, Aerobe / Anaerobe+Susc [[id number]] Collected: 12/30/21 1405 Lab Status: In process Specimen: Synovial Fluid, Left Shoulder Updated: 12/30/21 1519 Narrative: Bacterial Culture: Placed in Bactec aerobic and Bactec anaerobic bottles Bacteria Cult, Aerobe / Anaerobe+Susc [[id number]] Collected: 12/30/21 1404 Lab Status: In process Specimen: Shoulder, Left Updated: 12/30/21 1536 Narrative: Bacterial Culture: Placed in Bactec aerobic and Bactec anaerobic bottles Bacteria Cult, Aerobe / Anaerobe+Susc [[id number]] Collected: 12/30/21 1403 Lab Status: In process Specimen: Shoulder, Left Updated: 12/30/21 1533 Narrative: Bacterial Culture: Placed in Bactec aerobic and Bactec anaerobic bottles Bacteria Cult, Aerobe / Anaerobe+Susc [[id number]] Collected: 12/30/21 1403 Lab Status: In process Specimen: Shoulder, Left Updated: 12/30/21 1538 Narrative: Bacterial Culture: Placed in Bactec aerobic and Bactec anaerobic bottles SARS Coronavirus 2, Molecular Detection, PCR, Varies Asymptomatic [[id number]] Collected: 12/29/21 1111 Lab Status: Final result [...] ----ADDITIONAL INFORMATION---- This RT-PCR test using the Intexys SARS-CoV-2 Assay ( Pley.) performed on the Intexys Two Module System has received Emergency Use Authorization (EUA) by the U.S. Food and Drug Administration, and is modified from the dogman/woman's instructions with a bridging study. Performance characteristics were verified by [facility] in a manner consistent with CLIA requirements. Visit the CDC website: https://www.cdc.gov/coronavirus/ for the most recent guidelines on Coronavirus testing. Fact Sheet for Healthcare Providers: https://www.fda.gov/media/125896/download Fact Sheet for Patients: https://www.fda.gov/media/896541/download ASSESSMENT / PLAN IMPRESSION/REPORT/PLAN #1 Status post [...] 6 am, please page Arthur Smallwood at [facility] [phone] LINE COOK Trey Rdz R.N. - 12/31/2021 7:34 AM [...] with onq pump later today or tomorrow LINE COOK Jey Matos D.O. - 12/31/2021 6:53 AM [...] - Date/Time Bacteria Cult, Aerobe / Anaerobe+Susc [[id number]] Collected: 12/30/21 1411 Lab Status: In process Specimen: Shoulder, Left Updated: 12/30/21 1540 Narrative: Bacterial Culture: Placed in Bactec aerobic and Bactec anaerobic bottles Bacteria Cult, Aerobe / Anaerobe+Susc [[id number]] Collected: 12/30/21 1405 Lab Status: In process Specimen: Synovial Fluid, Left Shoulder Updated: 12/30/21 1519 Narrative: Bacterial Culture: Placed in Bactec aerobic and Bactec anaerobic bottles Bacteria Cult, Aerobe / Anaerobe+Susc [[id number]] Collected: 12/30/21 1404 Lab Status: In process Specimen: Shoulder, Left Updated: 12/30/21 1536 Narrative: Bacterial Culture: Placed in Bactec aerobic and Bactec anaerobic bottles Bacteria Cult, Aerobe / Anaerobe+Susc [[id number]] Collected: 12/30/21 1403 Lab Status: In process Specimen: Shoulder, Left Updated: 12/30/21 1533 Narrative: Bacterial Culture: Placed in Bactec aerobic and Bactec anaerobic bottles Bacteria Cult, Aerobe / Anaerobe+Susc [[id number]] Collected: 12/30/21 1403 Lab Status: In process Specimen: Shoulder, Left Updated: 12/30/21 1538 Narrative: Bacterial Culture: Placed in Bactec aerobic and Bactec anaerobic bottles SARS Coronavirus 2, Molecular Detection, PCR, Varies Asymptomatic [[id number]] Collected: 12/29/21 1111 Lab Status: Final result [...] ----ADDITIONAL INFORMATION---- This RT-PCR test using the Intexys SARS-CoV-2 Assay ( Vivonet) performed on the Intexys Two Module System has received Emergency Use Authorization (EUA) by the U.S. Food and Drug Administration, and is modified from the dogman/woman's instructions with a bridging study. Performance characteristics were verified by [facility] in a manner consistent with CLIA requirements. Visit the CDC website: https://www.cdc.gov/coronavirus/ for the most recent guidelines on Coronavirus testing. Fact Sheet for Healthcare Providers: https://www.fda.gov/media/762712/download Fact Sheet for Patients: https://www.fda.gov/media/868960/download ASSESSMENT / PLAN IMPRESSION/REPORT/PLAN #1 Status post [...] Jey Matos, DO Shoulder & Elbow Fellow [facility] Orthopaedic Surgery For any questions or concerns from 6 am until 6 pm, please page Jam service For urgent matters from 6 pm until 6 am, please page Ortho House at [facility] [phone] Trey Phan R.N. - 12/30/2021 4:39 PM [...] She is registered with the state of [place] for medical cannabis and she [place] her med[place] a [place] dispensary. She was told to leave her [...] Take 150 mg by mouth every morning. qvsujnonij-ldqhtiwudbdyv-ojue (ESGIC) 50-325-40 mg per tablet Past Week [...] by mouth 2 (two) times a day. LINE COOK documented in this encounter Procedure Notes Soraida [...] to release the adhesive from the skin. http://Endorse/products/secureportiv LINE COOK documented in this encounter Consult Notes Ruth [...] (HCC) ??? Nicotine Dependence Unspecified ??? Other Longterm Current Drug Therapy ??? Direct Infection Of [...] Right Lives With: Alone Receives Help From: car wash attendant, Family, Friend(s) ADL Assistance: Required assistance ADL Assistance Comments: Gets help from [employer] for her bath/shower and for her meals IADL/Homemaking Assistance: Required assistance IADL/Homemaking Assistance Comments: Gets help for housecleaning Driving: Independent Occupational Role: On disability Prior Mobility/Functional Transfers Level of [place]: Modified independent Gait Devices/Wheelchair Used: Cane Gait [...] session with call light in reach and [employer] present, all needs metand questions answered. Contact monitoring: PPE used during therapy: Therapist was wearing the following PPE throughout entire session: surgicalmask and eye protection Patient was wearing a mask during therapy session: yes, when out of room Outcome Measures -[facility] Inpatient Short Form: AM-[facility] Basic Mobility (V.2) How much help [...] steps with a railing?: A Lot -[facility] Basic Mobility (V.2) Raw Score: 17 -[facility] Basic Mobility (V.2) Standardized Score: 39.67 Interpretation: Clinicians answer the -[facility] Inpatient Short Form based on observed [...] (min): 36 min Ruth Gonzalez P.T., D.P.T. LINE COOK Thao You L.I.C.S.Erma, M.S.W. - 12/31/2021 2:04 PM CSTAssociated Order(s): IP CONSULT TO CARE MANAGEMENT; IP CONSULT TO CARE MANAGEMENT; IP CONSULT TO CARE MANAGEMENT Psychosocial Assessment SUBJECTIVE DEMOGRAPHIC INFORMATION Person(s) present during interview: Patient Primary care clinic and provider: [facility] Primary Language: Prydeinig Legal Information: Legal decision maker for self [...] / Household Status: Patient resides alone in [place], [place]. She lives in a two bedroom apartment. Patient has four adultchildren two of whom live in [place]. Patient son Rafal lives next door to patient. Support Systems: Family members, Friends/neighbors. We have not received permission to contact them. Primary caregiver: Self Accompanied by/Relationship: None Support System: Family members, Friends/neighbors Spirituality / Nondenominational / Culture: , None History: No Education: High school Employment: Disabled Psychosocial Risk Factors impacting the patient: Resides alone, mental health issues Abuse, Neglect, Maltreatment, Trauma: Current: None reported. Past: None reported. ENVIRONMENTAL SUPPORTS Current Living Situation: Private residence Patient's Home Environment: Resides in a two bedroom apartment [address] [facility] Care Facility Name (if applicable): NA [...] Behavior: Oriented Communication: Reads, writes and speaks Prydeinig It is anticipated that the patient will need assistance with .Dressing,bathing, meal prep, housekeeping, shopping ASSISTIVE DEVICES Patient has the following equipment: Eyeglasses, Dentures upper, Dentures lower, cane, walker Patient anticipates potentially needing the following additional equipment: None Transportation needs: Independent to drive, support from family and friends SERVICES REQUESTED Infusion therapy FENCE ERECTOR Formal and Informal Resources: Patient receives home health aid services three times per week and alf visit one time every two weeks through [facility]. FINANCES/INSURANCE Primary insurance: MEDICARE A AND B Secondary insurance: MEDICA ADVANCE DIRECTIVES Advance Directive: Patient does not have advance directive, does not want information DISCHARGE PLANNING Patient is planning on returning home upon her discharge. She currently receives home health aid services and alf through [facility]. Patient also has support from a son [...] good support group consisting of family, friends anditta bena health services through [facility]. INTERVENTIONS ?? Psychosocial assessment ?? Rapport building ?? Education on coping with chronic pain. PLAN ?? Social work will continue to follow for discharge planning and support. ?? Social work did speak with Pat at [facility] to confirm home health services. ?? Social work will work on infusion therapy referrals as well as home health/outpatient picc site care and labs. Anticipated barriers to the transition of care/plan: None Joe Ervin, M.S.W. 12/31/2021 LINE COOK Jose Guadalupe Nixon M.D. - 12/31/2021 7:31 AM CSTAssociated Order(s): IP CONSULT TO INFECTIOUS DISEASES Infectious Diseases Orthopedic Surgery [facility] Consulting Service Consult Note [...] resistance on OSH AST. She presented to [facility] (unclear if on antibiotics) for further evaluation given persistent L shoulder pain 08/2021 prompting aspiration (09/25/21) which revealed elevated TNC (46859) with 81% PMNs with cultures positive for1 [...] debridement. The patient was subsequently admitted to [facility] for further management. Intraoperative cultures and [...] - Date/Time Bacteria Cult, Aerobe / Anaerobe+Susc [[id number]] Collected: 12/30/21 1411 Lab Status: In process Specimen: Shoulder, Left Updated: 12/30/21 1540 Narrative: Bacterial Culture: Placed in Bactec aerobic and Bactec anaerobic bottles Bacteria Cult, Aerobe / Anaerobe+Susc [[id number]] Collected: 12/30/21 1405 Lab Status: In process Specimen: Synovial Fluid, Left Shoulder Updated: 12/30/21 1519 Narrative: Bacterial Culture: Placed in Bactec aerobic and Bactec anaerobic bottles Bacteria Cult, Aerobe / Anaerobe+Susc [[id number]] Collected: 12/30/21 1404 Lab Status: In process Specimen: Shoulder, Left Updated: 12/30/21 1536 Narrative: Bacterial Culture: Placed in Bactec aerobic and Bactec anaerobic bottles Bacteria Cult, Aerobe / Anaerobe+Susc [[id number]] Collected: 12/30/21 1403 Lab Status: In process Specimen: Shoulder, Left Updated: 12/30/21 1533 Narrative: Bacterial Culture: Placed in Bactec aerobic and Bactec anaerobic bottles Bacteria Cult, Aerobe / Anaerobe+Susc [[id number]] Collected: 12/30/21 1403 Lab Status: In process Specimen: Shoulder, Left Updated: 12/30/21 1538 Narrative: Bacterial Culture: Placed in Bactec aerobic and Bactec anaerobic bottles SARS Coronavirus 2, Molecular Detection, PCR, Varies Asymptomatic [[id number]] Collected: 12/29/21 1111 Lab Status: Final result [...] ----ADDITIONAL INFORMATION---- This RT-PCR test using the Intexys SARS-CoV-2 Assay ( Vivonet) performed on the Intexys Two Module System has received Emergency Use Authorization (EUA) by the U.S. Food and Drug Administration, and is modified from the dogman/woman's instructions with a bridging study. Performance characteristics were verified by [facility] in a manner consistent with CLIA requirements. Visit the CDC website: https://www.cdc.gov/coronavirus/ for the most recent guidelines on Coronavirus testing. Fact Sheet for Healthcare Providers: https://www.fda.gov/media/852676/download Fact Sheet for Patients: https://www.fda.gov/media/723438/download ASSESSMENT / PLAN 56-year-old female with a [...] is consistent with aspiration results from original [facility] evaluation which is likely service liaison representative of the culprit organism causing her [...] will follow along closely. Please page the [facility] service pager at [phone] with questions. Thank you for the consultation. Jose Guadalupe Nixon M.D. LINE COOK Associated attestation - Gucci Salvador M.D. - 12/31/2021 6:07 PM BACK LINE COOK DEMOGRAPHIC INFORMATION Clinic Number:[id number] Patient Name: Angie [...] prescriptions, and Oxycodone. Oxycodone filled here at [facility] pharmacy. Patient going home with an interscalene block OnQ pump. Transportation provided by her son. LINE COOK Fanny Sifuentes R.N. - 12/31/2021 11:00 PM [...] Nasal mucous membranes remain intact Outcome: Progressing LINE COOK Ezequiel Hernandez R.N. - 12/30/2021 10:27 PM [...] staff assistance to bathroom. Navin Hernandez R.N. LINE COOK documented in this encounter OR Notes Op Note - Cyrus Polk M.D. - 12/30/2021 2:50 PM CST STAFF: Cyrus Polk M.D. RESIDENT: Dario Carrera M.D. PRE-OPERATIVE DIAGNOSIS Left infected reverse arthroplasty. POST-OPERATIVE DIAGNOSIS Left infected reverse arthroplasty. A assistant athletic trainer was necessary for one or more of [...] Cyrus Polk M.D. CT CT Job ID: [id number] LINE COOK documented in this encounter Miscellaneous Notes Hospital [...] and pain is controlled on oral medications. LINE COOK documented in this encounter Plan of Treatment Scheduled Referrals Name Type Priority Associated Diagnoses Order S [facility] Outpatient Referral Routine Direct Infection Of Ordered: Health Referral Left Shoulder In 02/04/20 22 Infectious And Parasitic Diseases Classified Elsewhere (HCC) documented as of this encounter Procedures Procedure Name Priority Date/Time Associated Comments Diagnosis PLACE PERIPHERALLY Routine 01/01/2022 12:11 Resul ts for this INSERTED CENTRAL PM BACK LINE COOK procedure a re in CATHETER (PICC) the results section. REMOTE OXIMETRY Routine 12/31/2021 5:23 MONITORING CONT. PM BACK LINE COOK REMOTE OXIMETRY Routine 12/31/2021 5:23 MONITORING CONT. PM BACK LINE COOK BACTERIA / MANDI Routine 12/31/2021 4:04 Result s for this CULTURE, BLOOD PM BACK LINE COOK procedure are in the results section. BACTERIA / MANDI Routine 12/31/2021 3:52 Result s for this CULTURE, BLOOD PM BACK LINE COOK procedure are in the results section. ADULT OXYGEN THERAPY Routine 12/31/2021 8:01 AM BACK LINE COOK CBC WITH Routine 12/31/2021 4:25 Results for this DIFFERENTIAL, B AM BACK LINE COOK procedure ar e in the results section. BASIC METABOLIC Routine 12/31/2021 4:25 Results f or this PANEL, S/P AM BACK LINE COOK procedure are i n the results section. ADULT OXYGEN THERAPY Routine 12/30/2021 8:01 PM BACK LINE COOK ADULT OXYGEN THERAPY Routine 12/30/2021 5:12 PM BACK LINE COOK ADULT OXYGEN THERAPY Routine 12/30/2021 5:12 PM BACK LINE COOK ADULT OXYGEN THERAPY Routine 12/30/2021 3:46 PM BACK LINE COOK ADULT OXYGEN THERAPY Routine 12/30/2021 3:46 PM BACK LINE COOK DX SHOULDER LEFT 1 RAD - Timed (for 12/30/2021 3:41 Re sults for this VIEW specific PM BACK LINE COOK procedure are i n dates/times) the results section. SURGICAL PATHOLOGY, Routine 12/30/2021 2:15 Shoulder Joint Res ults for this FROZEN LAB PM BACK LINE COOK Disorder Left procedure are in the results section. BACTERIA CULT, Routine 12/30/2021 2:11 Results fo r this AEROBE/ANAEROBE+SUSC PM BACK LINE COOK procedu re are in the results section. BACTERIA CULT, Routine 12/30/2021 2:05 Results fo r this AEROBE/ANAEROBE+SUSC PM BACK LINE COOK procedu re are in the results section. BACTERIA CULT, Routine 12/30/2021 2:04 Results fo r this AEROBE/ANAEROBE+SUSC PM BACK LINE COOK procedu re are in the results section. BACTERIA CULT, Routine 12/30/2021 2:03 Results fo r this AEROBE/ANAEROBE+SUSC PM BACK LINE COOK procedu re are in the results section. BACTERIA CULT, Routine 12/30/2021 2:03 Results fo r this AEROBE/ANAEROBE+SUSC PM BACK LINE COOK procedu re are in the results section. ARTHROPLASTY 12/30/2021 12:34 Shoulder Joint RESECTION SHOULDER PM BACK LINE COOK Disorder Left documented in this encounter Results Place peripherally inserted central catheter (PICC) (01/01/2022 12:11 PM BACK LINE COOK) Narrative MMODAL - 01/01/2022 12:11 PM BACK LINE COOK Soraida Dick R.N. ? 01/01/2022 12:13 PM [...] to release the adhesive from the skin. [email or web address] Dario Carrera M.D. PROCEDURE/MINOR SURGICAL ORD ERABLES Performing Organization Address City/State/ZIP Code Phon e Number MMODAL MMODAL NA Bacteria / Mandi Culture, Blood #2 (12/31/2021 4:04 PM BACK LINE COOK) [employer] gist Method Time Signature Bacteria/Valerie No growth 01/05/2022 DTL da Culture, after 5 5:02 PM BACK LINE COOK Blood days of incubation. Specimen (Source) Anatomical Collection Method Collection Time Re ceived Time Location / / Volume Laterality Blood (Blood, 12/31/2021 4:04 12/31/2021 4:51 Peripheral Draw) PM BACK LINE COOK PM BACK LINE COOK Comment: Specimen Source Site: Blood Narrative [facility] - 01/05/2022 5:02 PM BACK LINE COOK Received Bactec aerobic and Bactec anaer obic bottles Dario Carrera M.D. LAB MICROBIOLOGY - GENERAL O PATERASARAH Performing Organization Address City/[facility] Phon e Number [facility] - [address] [place], [place] [address] [place] [id number] [place] [address] Bacteria / Mandi Culture, Blood #1 (12/31/2021 3:52 PM BACK LINE COOK) [facility] Method Time Signature Bacteria/Valerie No growth 01/05/2022 DT da Culture, after 5 5:02 PM BACK LINE COOK Blood days of incubation. Specimen (Source) Anatomical Collection Method Collection Time Re ceived Time Location / / Volume Laterality Blood (Blood, 12/31/2021 3:52 12/31/2021 4:50 Peripheral Draw) PM BACK LINE COOK PM BACK LINE COOK Comment: Specimen Source Site: Blood Narrative [facility] - 01/05/2022 5:02 PM BACK LINE COOK Received Bactec aerobic and Bactec anaer obic bottles Dario Carrera M.D. LAB MICROBIOLOGY - GENERAL O MARY Performing Organization Address City/[facility] Phon e Number [facility] - [address] [place] [address] [place] [address] (ABNORMAL) CBC with Differential, Blood (12/31/2021 4:25 AM BACK LINE COOK) [facility] Method Time Signature Hemoglobin 8.9 (L) 11.6 - 12/31/2021 DTL 15.0 g/dL 5:15 AM BACK LINE COOK Hematocrit 27.3 (L) 35.5 - 12/31/2021 DTL 44.9 % 5:15 AM BACK LINE COOK Erythrocytes 3.26 (L) 3.92 - 12/31/2021 DTL 5.13 5:15 AM BACK LINE COOK x10(12)/L MCV 83.7 78.2 - 12/31/2021 DTL 97.9 fL 5:15 AM BACK LINE COOK RBC Distrib Width 19.6 (H) 12.2 - 12/31/2021 DTL 16.1 % 5:15 AM BACK LINE COOK Platelet Count 274 157 - 371 12/31/2021 DTL x10(9)/L 5:15 AM BACK LINE COOK Leukocytes 6.6 3.4 - 9.6 12/31/2021 DTL x10(9)/L 5:15 AM BACK LINE COOK Neutrophils 4.91 1.56 - 12/31/2021 DTL 6.45 5:15 AM BACK LINE COOK x10(9)/L Lymphocytes 1.10 0.95 - 12/31/2021 DTL 3.07 5:15 AM BACK LINE COOK x10(9)/L Monocytes 0.61 0.26 - 12/31/2021 DTL 0.81 5:15 AM BACK LINE COOK x10(9)/L Eosinophils <0.03 0.03 - 12/31/2021 DTL 0.48 5:15 AM BACK LINE COOK x10(9)/L Basophils <0.03 0.01 - 12/31/2021 DTL 0.08 5:15 AM BACK LINE COOK x10(9)/L Specimen Anatomical Collection Method Collection Time Receive d Time (Source) Location / / Volume Laterality Blood (Blood, 12/31/2021 4:25 AM 12/31/19 5:04 Venous) BACK LINE COOK AM BACK LINE COOK Dario Carrera M.D. LAB BLOOD ADD-ON Performing Organization Address City/State/ZIP Code Phon e Number [facility] - [address] [place] [phone] [facility] [place] [place] [address] [facility] [address] [facility] (ABNORMAL) Basic Metabolic Panel (12/31/2021 4:25 AM BACK LINE COOK) P athologist Signature Potassium, S 4.4 3.6 - 5.2 12/31/2021 DTL mmol/L 5:35 AM BACK LINE COOK Sodium, S 134 (L) 135 - 145 12/31/2021 DTL mmol/L 5:35 AM BACK LINE COOK Chloride, S 103 98 - 107 12/31/2021 DTL mmol/L 5:35 AM BACK LINE COOK Bicarbonate, S 22 22 - 29 12/31/2021 DTL mmol/L 5:35 AM BACK LINE COOK Anion Gap 9 7 - 15 12/31/2021 DTL 5:35 AM BACK LINE COOK BUN (Blood Urea 21 6 - 21 12/31/2021 DTL Nitrogen), S mg/dL 5:35 AM BACK LINE COOK Creatinine 0.74 0.59 - 12/31/2021 DTL 1.04 mg/dL 5:35 AM BACK LINE COOK eGFR-Non 90 >=60 12/31/2021 DTL Black/ mL/min/BSA 5:35 AM BACK LINE COOK Swedish Comment: ----ADDITIONAL INFORMATION---- Estimated GFR calculated using the 2009 CKD_EPI creatinine equation. eGFR-Black/ >90 >=60 mL/min/BSA 2021 5:35 AM BACK LINE COOK DTL Comment: ----ADDITIONAL INFORMATION---- Estimated GFR calculated using the 2009 CKD_EPI creatinine equation. Calcium, Total, S 8.7 8.6 - 10.0 mg/dL 12/31/2021 5:35 AM BACK LINE COOK DTL Glucose, S 138 70 - 140 mg/dL 12/31/2021 5:35 AM BACK LINE COOK D TL Specimen Anatomical Collection Method Collection Time Receive d Time (Source) Location / / Volume Laterality Blood (Blood, 12/31/2021 4:25 AM 12/31/19 5:18 Venous) BACK LINE COOK AM BACK LINE COOK Dario Carrera M.D. LAB BLOOD ADD-ON Performing Organization Address City/State/ZIP Code Phon e Number [facility] - [address] [place], [place] [address] [facility] [place] [address] [facility] [address] DX Shoulder Left 1 View (12/30/2021 3:41 PM BACK LINE COOK) Anatomical Region Laterality Modality Upper Extremity, Shoulder, Musculoskeletal RST LOS, Left Computed Radiography Musculoskeletal ARZ LOS, Muskuloskeletal FLA LOS Specimen (Source) Anatomical Collection Method Collection Time Re ceived Time Location / / Volume Laterality 12/30/2021 3:54 PM BACK LINE COOK Impressions 12/30/2021 3:59 PM BACK LINE COOK Postoperative changes of a left shoulder arthroplasty resection and placement of an antibiotic spacer. Negat lalo for postoperative purposes. Narrative 12/30/2021 3:59 PM BACK LINE COOK EXAM: ??DX SHOULDER LEFT 1 VIEW Procedure Note Timothy Resendiz M.D. - 12/30/2021Forma tting of this note might be different from the original. EXAM: DX SHOULDER LEFT 1 VIEW IMPRESSION: Postoperative changes of a left shoulder arthroplasty resection and placement of an antibiotic spacer. Negat lalo for postoperative purposes. Dario Carrera M.D. IMG DIAGNOSTIC IMAGING [facility] Surgical Pathology, Frozen Lab (12/30/2021 2:15 PM BACK LINE COOK) Component Value Ref Test Analysis Performed At [employer] Purpose Global Range Method Time Signature 01/01/2022 M[facility] 8:22 AM BACK LINE COOK Participated in Kelly Howard, 01/01/2022 M[facility] the D.O.-Pathology 8:22 AM BACK LINE COOK Interpretation Resident Report Solomon Marcum M.D. 01/01/2022 METH electronically 8:22 AM BACK LINE COOK signed by I verify that I have examined all relevant slides/materials for the specimen(s) and rendered or confirmed the diagnosis. Frozen A. ??Synovium, left shoulder, excision: ??Synovial tissue 01/01/2022 M[facility] Intraoperative with 8:22 AM BACK LINE COOK Report acute inflammation (>5 neutrophils/high power field). Signed by Solomon Marcum M.D. 12/31/2021 8:17 AM Gross Description A. ??Received fresh labeled left shoulder is a 1.4 x 0.9 x 01/01/2022 METH 0.4 cm aggregate of red and campbell fibrous tissue, which is 8:22 AM BACK LINE COOK soft. ??All submitted for frozen and permanent sections. Grossed by Nikki Gallardo. Block Summary A Left shoulder 01/01/2022 M[facility] A1 Left shoulder-frozen 8:22 AM BACK LINE COOK Interpretation FINAL DIAGNOSIS 01/01/2022 M[facility] 8:22 AM BACK LINE COOK A. ??Synovium, left shoulder, excision: ??Synovial tissue with acute inflammation (>5 neutrophils/high power field). Specimen (Source) Anatomical Collection Method Collection Time Re ceived Time Location / / Volume Laterality Tissue (Shoulder, 12/30/2021 2:15 PM Left) BACK LINE COOK Narrative This result has an attachment that is no t available. Cyrus Polk M.D. LAB SURG PATH ORDERABLES Performing Organization Address City/State/ZIP Code Phon e Number [facility] - [address] [place], [place] [address] [facility] [place] [address] [facility] [address] Bacteria Cult, Aerobe / Anaerobe+Susc (12/30/2021 2:11 PM BACK LINE COOK) [employer] Method Time Signature Bacteria Cult, No growth 01/13/2022 DTL Aerobe/Anaerob after 14 4:02 PM BACK LINE COOK e+Susc days of incubation. Specimen Anatomical Collection Method Collection Time Receive d Time (Source) Location / / Volume Laterality Shoulder, Left 12/30/2021 2:11 PM 022 3:38 BACK LINE COOK PM BACK LINE COOK Comment: Specimen Source Site: Tissue #4 Narrative [facility] - 01/13/2022 4:02 PM BACK LINE COOK Bacterial Culture: Placed in Bactec aero bic and Bactec anaerobic bottles Cyrus Polk M.D. LAB MICROBIOLOGY - GENERAL O RDERABLES Performing Organization Address City/State/ZIP Code Phon e Number [facility] [address] [place], [place] [address] [facility] [place] [place] [address] [facility] [address] (ABNORMAL) Bacteria Cult, Aerobe / Anaerobe+Susc (12/30/2021 2:05 PM BACK LINE COOK) Component Value Ref Test Analysis Performed At [employer] Purpose Global Range Method Time Signature Bacteria STAPHYLOCOCCUS EPIDERMIDIS 01/11/2022 DT L Cult, Growth after 4 days 7:55 AM BACK LINE COOK Aerobe/Anaero (A) be+Susc Comment: Semi-Urgent Result. Semi-Urgent This is a semi-urgent result [facility] - () [facility] Specimen Anatomical Collection Method Collection Time Receive d Time (Source) Location / / Volume Laterality Synovial Fluid, 12/30/2021 2:05 PM 2021 3:17 Left Shoulder BACK LINE COOK PM BACK LINE COOK Comment: Specimen Source Site: Fluid Narrative [facility] - 01/11/2022 7:55 AM BACK LINE COOK Bacterial Culture: Placed in Bactec aero bic [...] - GENERAL O MARY Performing Organization Address [facility] Phon e Number [facility] - [address] [place] [address] Bacteria Cult, Aerobe / Anaerobe+Susc (12/30/2021 2:04 PM BACK LINE COOK) [facility] Method Time Signature Bacteria Cult, No growth 01/13/2022 [facility] Aerobe/Anaerob after 14 4:02 PM BACK LINE COOK e+Susc days of incubation. Specimen Anatomical Collection Method Collection Time Receive d Time (Source) Location / / Volume Laterality Shoulder, Left 12/30/2021 2:04 PM 022 3:34 BACK LINE COOK PM BACK LINE COOK Comment: Specimen Source Site: Tissue #3 Narrative [facility] - 01/13/2022 4:02 PM BACK LINE COOK Bacterial Culture: Placed in Bactec aero bic and Bactec anaerobic bottles Cyrus Polk M.D. LAB MICROBIOLOGY - GENERAL O MARY Performing Organization Address City/[facility] Phon e Number [facility] - [address] Bacteria Cult, Aerobe / Anaerobe+Susc (12/30/2021 2:03 PM BACK LINE COOK) [facility] Method Time Signature Bacteria Cult, No growth 01/13/2022 DTL Aerobe/Anaerob after 14 4:02 PM BACK LINE COOK e+Susc days of incubation. Specimen Anatomical Collection Method Collection Time Receive d Time (Source) Location / / Volume Laterality Shoulder, Left 12/30/2021 2:03 PM 022 3:37 BACK LINE COOK PM BACK LINE COOK Comment: Specimen Source Site: Tissue #2 Narrative [facility] - 01/13/2022 4:02 PM BACK LINE COOK Bacterial Culture: Placed in Bactec aero bic and Bactec anaerobic bottles Cyrus Polk M.D. LAB MICROBIOLOGY - GENERAL O RDSONIA Performing Organization Address City/[facility] Phon e Number [facility] - [address] Bacteria Cult, Aerobe / Anaerobe+Susc (12/30/2021 2:03 PM BACK LINE COOK) [facility] Method Time Signature Bacteria Cult, No growth 01/13/2022 DTL Aerobe/Anaerob after 14 4:02 PM BACK LINE COOK e+Susc days of incubation. Specimen Anatomical Collection Method Collection Time Receive d Time (Source) Location / / Volume Laterality Shoulder, Left 12/30/2021 2:03 PM 022 3:31 BACK LINE COOK PM BACK LINE COOK Comment: Specimen Source Site: Tissue #1 Narrative [facility] - 01/13/2022 4:02 PM BACK LINE COOK Bacterial Culture: Placed in Bactec aero bic and Bactec anaerobic bottles Cyrus Polk M.D. LAB MICROBIOLOGY - GENERAL O RDSONIA Performing Organization Address City/State/[facility] Phon e Number [facility] - [address] [place], [place] [address] [place], [place] [id number] [place] [address] documented in this encounter Visit Diagnoses Diagnosis [...] tablet 1,000 mg Given 01/01/2022 11:36 AM BACK LINE COOK 1,00 0 mg (TYLENOL) 1,000 mg, oral, Every 6 hours, First dose on Tue12/30/21 at 1800 Given 01/01/2022 6:28 AM BACK LINE COOK 1,000 mg Given 12/31/2021 11:51 PM BACK LINE COOK 1,000 mg albuterol nebulizer solution 2.5 mg Given 12/31/2021 4:44 PM BACK LINE COOK 2.5 mg 2.5 mg, nebulization, Every 6 hours PRN, wheezing, Starting on Tue12/30/21 at 1711, Albuterol nebs were interchanged for albuterol/levalbuterol MDI (same frequency) atorvastatin tablet 80 mg (LIPITOR) Given 12/31/2021 8:57 PM BACK LINE COOK 80 mg 80 mg, oral, Daily at bedtime, First dose on Tue12/30/21 at 2100 Given 12/30/2021 9:55 PM BACK LINE COOK 80 mg benzonatate capsule 100 mg (TESSALON PER LES) Given 01/01/2022 3:10 AM BACK LINE COOK 100 mg 100 mg, oral, 3 times daily PRN, cough, Starting on Tue12/31/21 at 1702, Swallow whole. Do NOT crush, chew or open capsule. Given 12/31/2021 5:39 PM BACK LINE COOK 100 mg bupivacaine PF 0.2 % 550 mL in NaCl New Bag 01/01/2022 3:15 PM BACK LINE COOK 6 mL/hr 6 mL/hr 0.9% On-Q pain pump (CB004) 6 mL/hr, nerve catheter, Continuous, Starting on Tue01/01/22 at 1500, PACU & Post-Op, Location: Nerve Catheter Location, Nerve Catheter Location: Interscalene, Device: On-Q Pump bupivacaine PF 0.2 % in Rate/Dose Verify 01/01/2022 1:00 AM BACK LINE COOK 6 mL/ hr 6 mL/hr NaCl 0.9% 341 mL infusion (MARCAINE) 6 mL/hr, nerve catheter, Continuous, Starting on Tue12/30/21 at 1600, PACU & Post-Op, Nerve Catheter Location: Interscalene, Device: Hospital Infusion Pump Rate/Dose Verify 12/31/2021 12:11 AM BACK LINE COOK 6 mL/hr 6 mL/hr New Bag 12/30/2021 3:49 PM BACK LINE COOK 6 mL/hr 6 mL/hr buPROPion XL 24 hr tablet 150 mg (WELLBUTRIN Given 02/2022 8:35 AM BACK LINE COOK 150 mg XL) 150 mg, oral, Every morning, First dose on Tue12/31/21 at 0900, Swallow whole. Do NOT crush, chew, or split tablet. Given 12/31/2021 8:16 AM BACK LINE COOK 150 mg calcium carbonate chewable tablet Given 12/31/2021 11: 46 PM BACK LINE COOK 400 mg of calcium 400 mg of calcium (TUMS) 400 mg of calcium, oral, Every 2 hour PRN, indigestion, Starting on Tue12/30/21 at 1711, Doses listed are in mg of elemental calcium. Take with food. 500 mg calcium carbonate contains 200 mg of elemental calcium. Given 12/31/2021 9:15 PM BACK LINE COOK 400 mg of calcium carboxymethylcellulose 0.5 % ophthalmic Given 01/01/2022 1:15 AM BACK LINE COOK 2 drops solution 2 drop (REFRESH PLUS) 2 drop, both eyes, 4 times daily PRN, dry eyes, Starting on Tue12/30/21 at 1711 Given 12/31/2021 12:31 PM BACK LINE COOK 2 drops Given 12/31/2021 12:23 AM BACK LINE COOK 2 drops cefTRIAXone in dextrose (iso-osm) IVPB New Bag 01/01/2022 2:38 PM BACK LINE COOK 2 g 200 mL/hr 2 g (ROCEPHIN) 2 g, intravenous, at 200 mL/hr, Administer over 15 Minutes, Daily before lunch, First dose on Tue01/01/22 at 1345, Drug Monitoring Program: Pharmacist to adjust medication dosing based on indication and drug clearance factors., Indications: Bone and/or joint infection cetirizine tablet 10 mg (ZyrTEC) Given 01/01/2022 8:35 AM BACK LINE COOK 10 mg 10 mg, oral, 2 times daily, First dose on Tue12/30/21 at 2100, Drug Monitoring Program: Pharmacist to adjust medication dosing based on indication and drug clearance factors. Given 12/31/2021 8:57 PM BACK LINE COOK 10 mg Given 12/31/2021 8:16 AM BACK LINE COOK 10 mg cholecalciferol (vitamin D3) tablet 25 m cg Given 01/01/2022 8:35 AM BACK LINE COOK 25 mcg 25 mcg, oral, Daily, First dose on Tue12/31/21 at 0900, cholecalciferol (vitamin D3) orderable was interchanged for cholecalciferol (vitamin D3) tablet/capsule Given 12/31/2021 8:16 AM BACK LINE COOK 25 mcg D5W infusion 10-250 mL/hr, intravenous, [...] 5 mg (VALIUM) Given 12/31/2021 12:31 PM BACK LINE COOK 5 mg 5 mg, oral, 4 times daily PRN, muscle spasms, Starting on Tue12/30/21 at 2243 Given 12/31/2021 1:59 AM BACK LINE COOK 5 mg diphenhydrAMINE capsule 25 mg (BENADRYL) 25 mg, oral, Daily PRN, itching, Starting on Tue 2 at 0854 diphenhydrAMINE capsule 75 mg (BENADRYL) Given 01/01/2022 8:49 AM BACK LINE COOK 75 mg 75 mg, oral, Bedtime PRN, sleep, Starting on Tue12/30/21 at 1715 FLUoxetine capsule 80 mg (PROzac) Given 01/01/2022 8:34 AM BACK LINE COOK 80 mg 80 mg, oral, Daily, First dose on Tue12/31/21 at 0900, FLUoxetine orderable was interchanged for FLUoxetine tablet/capsule Given 12/31/2021 8:16 AM BACK LINE COOK 80 mg fluticasone furoate 100 mcg/actuation Given 01/01/2022 8:[address] 2 puffs inhaler 2 puff (ARNUITY ELLIPTA) 2 puff, inhalation, 2 times daily, First dose on Tue12/30/21 at 2100, fluticasone furoate 100 mcg was interchanged for fluticasone MDI 110 mcg Given 12/31/2021 9:04 PM BACK LINE COOK 2 puffs Given 12/31/2021 8:17 AM BACK LINE COOK 2 puffs gentamicin powder (for bone Given 12/30/2021 2:40 PM BACK LINE COOK 4 vials Left Shoulder cement) As needed, Starting on Tue12/30/21 at 1440, Intra-Op heparin PF flush syringe 50-150 Units 50-150 Units, intravenous, Once as neede d, line care, 50 units (5 mL) to each lumen of non-valved catheters only, Starting on Tue01/01/22 a t 0817, For 1 dose HYDROmorphone (PF) injection 0.4 mg Given 01/01/2022 4:56 AM BACK LINE COOK 0.4 mg (DILAUDID) 0.4 mg, intravenous, Every 2 hour PRN, severe pain or score 7-10 of 10, Starting on Tue12/30/21 at 1711, For 5 doses, May administer if pain is greater than 7 after scheduled and PRN regimen exhausted. If pain remains greater than 7, notify primary service. Given 12/31/2021 11:35 AM BACK LINE COOK 0.4 mg Given 12/31/2021 4:14 AM BACK LINE COOK 0.4 mg ipratropium-albuteroL 0.5-2.5 mg/3 mL nebulizer Given 01/01/2022 3:15 AM BACK LINE COOK 3 mL solution 3 mL (DUONEB) 3 mL, nebulization, 4 times daily PRN, shortness of breath, wheezing, Starting on Tue12/30/21 at 1711 lactated ringers Rate/Dose Change 01/01/2022 1:00 AM BACK LINE COOK 20 mL/hr 20 mL/hr 75 mL/hr, intravenous, Continuous, Starting on Tue12/30/21 at 1715, Until patient has 500cc po intake New Bag 12/31/2021 11:46 PM BACK LINE COOK 75 mL/hr 75 mL/hr Rate/Dose Change 12/31/2021 3:55 AM BACK LINE COOK 20 mL/hr 20 mL/hr lactated ringers Continued from OR 12/30/2021 4:00 PM BACK LINE COOK 75 mL/hr 75 mL/hr 75 mL/hr, intravenous, Continuous, Starting on Tue12/30/21 at 1600, PACU & Post-Op lamoTRIgine tablet 200 mg (LaMICtaL) Given 01/01/2022 8:34 AM BACK LINE COOK 200 mg 200 mg, oral, 2 times daily, First dose on Tue12/30/21 at 2100 Given 12/31/2021 8:56 PM BACK LINE COOK 200 mg Given 12/31/2021 8:16 AM BACK LINE COOK 200 mg methylene blue 0.5 % (5 mg/mL) Given 12/30/2021 2:39 PM BACK LINE COOK 2 mL Left Shoulder injection As needed, [...] 10 mg (ROXICODONE) Given 01/01/2022 2:38 PM BACK LINE COOK 10 mg 10 mg, oral, Every 3 hours PRN, severe pain or score 7-10 of 10, Starting on Tue12/31/21 at 1745 Given 01/01/2022 11:35 AM BACK LINE COOK 10 mg Given 01/01/2022 7:07 AM BACK LINE COOK 10 mg oxyCODONE IR tablet 5 mg (ROXICODONE) 5 mg, oral, Every 3 hours PRN, moderate pain or score 4-6 of 10, Starting on Tue12/31/21 at 1745, If patient is >75 consider changing to 2.5-5mg scale pantoprazole DR tablet 40 mg (PROTONIX) Given 01/01/2022 3:46 PM BACK LINE COOK 40 mg 40 mg, oral, 2 times daily before breakfast and dinner, First dose on Tue12/31/21 at 0700, pantoprazole 40 mg oral twice daily was interchanged for esomeprazole 20 or 40 mg oral twice daily Swallow whole. Do NOT crush, chew, or split tablet. Given 01/01/2022 6:29 AM BACK LINE COOK 40 mg Given 12/31/2021 4:47 PM BACK LINE COOK 40 mg pregabalin capsule 600 mg (LYRICA) Given 01/01/2022 8:34 AM BACK LINE COOK 600 mg 600 mg, oral, 2 times daily, First dose on Tue12/30/21 at 2100 Given 12/31/2021 8:56 PM BACK LINE COOK 600 mg Given 12/31/2021 8:15 AM BACK LINE COOK 600 mg QUEtiapine tablet 50 mg (SEROquel) Given 12/31/2021 8:57 PM BACK LINE COOK 50 mg 50 mg, oral, Daily at bedtime, First dose on Tue12/30/21 at 2100 Given 12/30/2021 9:55 PM BACK LINE COOK 50 mg sennosides-docusate sodium 8.6-50 mg per Given 01/01/2022 8:35 A M BACK LINE COOK 1 tablet tablet 1 tablet (SENOKOT-S) 1 tablet, oral, 2 times daily, First dose on Tue12/30/21 at 2100, Do not give if patient has diarrhea. Given 12/31/2021 8:57 PM BACK LINE COOK 1 tablet Given 12/31/2021 8:16 AM BACK LINE COOK 1 tablet sodium chloride 0.9 % injection [...] injection 3 mL Given 12/31/2021 8:18 AM BACK LINE COOK 3 mL 3 mL, intravenous, Every 12 hours scheduled, First dose on Tue12/30/21 at 2100, PACU & Post-Op, Peripheral Intravenous Catheter and Rapid Infusion Catheter, when no infusion to maintain patency Given 12/30/2021 9:53 PM BACK LINE COOK 3 mL vancomycin powder Given 12/30/2021 2:40 PM BACK LINE COOK 4 g Left Shoulder As needed, Starting on Tue12/30/21 at 1440, Intra-Op zonisamide capsule 300 mg (ZONEGRAN) Given 01/01/2022 8:35 AM BACK LINE COOK 300 mg 300 mg, oral, 2 times daily, First dose on Tue12/30/21 at 2100, Swallow whole. Do NOT crush, chew or open capsule. Given 12/31/2021 8:57 PM BACK LINE COOK 300 mg Given 12/31/2021 8:16 AM BACK LINE COOK 300 mg documented in this encounter Active and Recently Administered Medications Times are shown in BACK LINE COOK. 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
--- OUTSIDE RECORDS SUMMARY | 2022-08-08 23:01 | XMS_ITS | Encounter Summary ---
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 Orders in [address] [place] [id number] [place], [place] [phone] (Work) [phone] Social History Tobacco Use Types Packs/Day Years [...] you attend hinduism or Patient refused 2021 mu-ism services? Do you belong to any clubs or No 05/17/2022 organizations such as hinduism groups, unions, [employer] or athletic groups, or school groups? How [...] 12/29/2021 1:06 PM CST Please sign order UCT SALES REPRESENTATIVE documented in this encounter Plan of Treatment Scheduled Referrals Name Type Priority Associated Order Schedule Diagnoses Orthopedic Surgery Outpatient Referral Routine Pain Shoulder L eft Expected: Pre Op (clinic) 02/24/2022, Expires: 03/28/2023 documented as of this encounter Results SARS CoV-2 RNA, PCR, Varies Asymptomatic (02/25/2022 11:09 AM CDT) [facility] Method Time Signature SARS CoV-2 Swab, [...] Drug Administration an d is used per erp pm's instructions. Performance characteristics were verified by [facility] in a manner consistent with CLIA requirements. Visit the CDC website: https://www.cdc.g ov/coronavirus/ for the most recent guidelines on Coron avirus testing. Fact Sheet for Healthcare Providers: https://www.fda.gov/media/142762/downloa d Fact Sheet for Patients: https://www.fda.gov/media/039712/downloa d Specimen Anatomical Collection Method Collection Time Receive d Time (Source) Location / / Volume Laterality Varies 02/25/2022 11:09 02/25/2022 (Nasopharynx) AM CDT 11:40 AM CDT Alfredo Kamara LAB MICROBIOLOGY - GENERAL O RDERABLES Performing Organization Address City/State/ZIP Code Phon e Number [facility] - [address] [place], [place] [address] [place] [address] [facility] [address] documented in this encounter Visit Diagnoses Diagnosis Pain Shoulder Left - Primary documented in this encounter Additional Health Concerns Infection Onset Date Last Indicated Resolved Time COVID19 Pending 12/29/2021 12/29/2021 12/29/2021 4:20 PM PRODUCT SALES REPRESENTATIVE Assessment Noted Time PHQ-9 Depression Total Score: 16 02/11/2021 12:00 AM C DT documented as of this encounter Care Teams Integrated Campaign Manager Relationship Specialty Start Date End Date Elsewhere, Pcp PCP - General Family Medicine 12/25/21 documented as of this encounter
--- OUTSIDE RECORDS SUMMARY | 2022-08-08 23:01 | XMS_ITS | Encounter Summary ---
:1965 Author Organization [facility] Address [address] [place] [id number] Care Team Providers Name Role Phone Elsewhere, Pcp Primary Care Provider Unavailable Reason for Visit Outpatient (Routine) - Closed Specialty Diagnoses / Procedures Referred By Contact Refer red To Contact Anesthesiology Diagnoses Preoperative Exam Painful Total Joint Arthroplasty Initial (HCC) Alfredo Herrera [facility] [address] [place] [phone] Referral ID Status Reason Start Date Expiration Date Visits Requ ested Visits Authorized [id number] Closed 10/13/2021 10/13/2022 1 1 Encounter Details Date Type Department Care Team Description 12/29/2021 Comprehensive Visit Preoperative Cayetano Herrera, [facility] [address] [place] [phone] Preanesthetic Medical Exam (Primary Dx); Evaluation Center Etta Lyle M.D. 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 Do [...] Comments Blood Pressure 125/78 12/29/2021 1:21 PM [facility] Pulse 64 12/29/2021 1:21 PM [facility] Temperature 36.1 ??C (97 ??F) 12/29/2021 1:01 PM [facility] Respiratory Rate - - Oxygen Saturation 97% 12/29/2021 1:21 PM [facility] Inhaled Oxygen Concentration - - Weight 72.6 kg (160 lb 0.9 oz) 12/29/2021 1:01 PM [facility] Height 152 cm (4' 11.84) 12/29/2021 1:01 PM [facility] Body Mass Index 31.42 12/29/2021 1:01 PM [facility] documented in this encounter H&P Notes Etta [...] RCRI score: 1; 6% risk of , [place], or cardiac arrest OBJECTIVE OBJECTIVE PHYSICAL EXAMINATION [...] 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 ([facility]) # Aneurysm Cerebral Unruptured ([facility]) # Dissection Vertebral Artery ([facility]) # 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 Written and verbal instructions given on medication [...] Lyle M.D. PGY-3, Anesthesiology and Perioperative Medicine [facility] documented in this encounter Plan of Treatment [...] COVID19 Pending 12/29/2021 12/29/2021 12/29/2021 4:20 PM [facility] Assessment Noted Time PHQ-9 Depression Total Score: 16 02/11/2021 12:00 AM C DT documented as of this encounter Care Teams Galvanizing Pot Runner Relationship Specialty Start Date End Date Elsewhere, Pcp PCP - General Family Medicine 12/25/21 documented as of this encounter
--- OUTSIDE RECORDS SUMMARY | 2022-08-08 23:01 | XMS_ITS | Encounter Summary ---
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 [address] [place] [phone] Referral ID Status Reason Start Date Expiration Date Visits V isits Requested Authorized [id number] Authorized 01/01/2022 01/01/2023 1 1 R VEHICLE LICENCE EXAMINER Encounter Details Date Type Department Care Team Description 12/30/2021 - Hospital Encounter [facility] Kulwant Polk M.D. [address] [place] [phone] Pain Shoulder Left (Primary Dx); 01/01/2022 Hospital, Scientology Kennedi Vera MPAS, P.A.-C. [address] [place] [phone] Shoulder Joint Disorder Left; Afshin Blasenberg Direct Inf ection Of Left Shoulder In Infectious And Parasitic Diseases Classified Elsewhere (HCC) Building, Eighth Floor [address] [place] [phone] Social History Tobacco Use Types Packs/Day Years [...] you attend confucianist or Patient refused 2021 hoahaoism services? Do [...] Comments Blood Pressure 141/91 01/01/2022 4:26 PM MOTOR VEHICLE LICENCE EXAMINER Pulse 95 01/01/2022 4:26 PM MOTOR VEHICLE LICENCE EXAMINER Temperature 36.8 ??C (98.2 ??F) 01/01/2022 4:26 PM MOTOR VEHICLE LICENCE EXAMINER Respiratory Rate 18 01/01/2022 4:26 PM MOTOR VEHICLE LICENCE EXAMINER Oxygen Saturation 93% 01/01/2022 4:26 PM MOTOR VEHICLE LICENCE EXAMINER Inhaled Oxygen Concentration - - Weight 69.9 kg (154 lb 1.6 12/30/2021 11:22 AM oz) MOTOR VEHICLE LICENCE EXAMINER Height 150.5 cm (4' 11.25) 12/30/2021 11:22 AM no shoe s/boots MOTOR VEHICLE LICENCE EXAMINER Body Mass Index 30.86 12/30/2021 11:22 AM MOTOR VEHICLE LICENCE EXAMINER documented in this encounter Discharge Summaries Dario Carrera M.D. - 01/01/2022 8:50 AM CST DISCHARGE SUMMARY BRIEF OVERVIEW Hospital: [facility] Discharge Provider: Cyrus Polk M.D. Primary Team: [...] OR DISCHARGE DISPOSITION [place] [facility] [place]] ACTIVE ISSUES REQUIRING FOLLOW UP Active [...] were provided to the patient and caregiver(s). R VEHICLE LICENCE EXAMINER documented in this encounter Discharge Instructions AttachmentsThe following attachments cannot be sent through Care Everywhere. Continuous Nerve-Block Infusion System: Often called a ???pain pump?? (Senegalese) documented in this encounter Medications at Time [...] needed. multivit-min/iron/folic/ Take 1 tablet by 0 aub308 (HAIR, SKIN AND mouth daily. NAILS ADVANCED [...] mg by mouth 0 03/12/202002/26/2022 at bedtime. cholecalciferol (VITAMIN Take 125 mcg [...] 50 mL (2 g 2050 mL 0 02/0 02/202202/11/2022 iso-osm, (ROCEPHIN) 2 [...] when she got up for the day. R VEHICLE LICENCE EXAMINER Ruth Gonzalez P.T., D.P.T. - 01/01/2022 4:29 [...] mask during therapy session: no Outcome Measures -[facility] Inpatient Short Form: -[facility] Basic [...] 3-5 steps with a railing?: A Little AM-[facility] Basic Mobility (V.2) Raw Score: 23 AM-PAC Basic Mobility (V.2) Standardized Score: 50.88 Interpretation: Clinicians answer the AM-[facility] Inpatient Short Form based on observed [...] quad cane since it is not available [facility] by prescription. Barriers to Discharge Home: [...] (min): 23 min Ruth Gonzalez P.T., Juice.P.TBritton R VEHICLE LICENCE EXAMINER Elvira Duncan R.N. - 01/01/2022 3:21 PM [...] educational pamphlet Continuous Nerve-Block Infusion System ( [id number]).?? Discussed at home removal of nervecatheter, signs [...] and financial relationship of the [facility]/home health & hospice agencies. Reviewed insurance [...] Selected Services Address Phone Fax Patient Preferred [facility] Infusion and IV Therapy [address], [place] [id number] -- Contact: Intake NURSING: - Adjust the [...] draws will be managed by Outpatient Facility: [facility] Address: [address] , [place], [place] Contact: Princess They will provide IV [...] continue to follow. Joe Ervin, M.S.W. 01/01/2022 R VEHICLE LICENCE EXAMINER Gucci Salvador M.D. - 01/01/2022 10:45 AM [...] questions answered to patient's satisfaction. Please page [phone] for questions. 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 [phone] R VEHICLE LICENCE EXAMINER Pamela Crawford Pharm.D., R.Ph. - 01/01/2022 10:14 [...] on post-operative opioids Pamela Crawford Pharm.D., R.Ph. [phone] R VEHICLE LICENCE EXAMINER Jose Guadalupe Nixon M.D. - 01/01/2022 8:31 AM CST Infectious Diseases Orthopedic Surgery [facility] [place]ing Service Progress Note SUBJECTIVE -No acute [...] Date/Time Bacteria / Mandi Culture, Blood #2 [[id number]] Collected: 12/31/21 1604 Lab Status: In process Specimen: Blood, Peripheral Draw Updated: 12/31/21 1651 Narrative: Received Bactec aerobic and Bactec anaerobic bottles Specimen Information: Specimen ID: [id number] Specimen Source: Blood, Peripheral Draw Specimen Comment: Specimen Source Site: Blood Specimen Collection Start Date: 12/31/2021 4:05 PM Specimen Received Date: 12/31/2021 4:51 PM Specimen ID: [id number] Specimen Source: Blood, Peripheral Draw Specimen Comment: Specimen Source Site: Blood Specimen Collection Start Date: 12/31/2021 4:05 PM Specimen Received Date: 12/31/2021 4:51 PM Specimen ID: [id number] Specimen Source: Blood, Peripheral Draw Specimen Comment: Specimen Source Site: Blood Specimen Collection Start Date: 12/31/2021 4:04 PM Specimen Received Date: 12/31/2021 4:51 PM Bacteria / Mandi Culture, Blood #1 [[id number]] Collected: 12/31/21 1552 Lab Status: In process Specimen: Blood, Peripheral Draw Updated: 12/31/21 165 Narrative: Received Bactec aerobic and Bactec anaerobic bottles Specimen Information: Specimen ID: [id number] Specimen Source: Blood, Peripheral Draw Specimen Comment: Specimen Source Site: Blood Specimen Collection Start Date: 12/31/2021 3:52 PM Specimen Received Date: 12/31/2021 4:50 PM Specimen ID: [id number] Specimen Source: Blood, Peripheral Draw Specimen Comment: Specimen Source Site: Blood Specimen Collection Start Date: 12/31/2021 3:53 PM Specimen Received Date: 12/31/2021 4:50 PM Specimen ID: [id number] Specimen Source: Blood, Peripheral Draw Specimen Comment: Specimen Source Site: Blood Specimen Collection Start Date: 12/31/2021 3:53 PM Specimen Received Date: 12/31/2021 4:50 PM Bacteria Cult, Aerobe / Anaerobe+Susc [[id number]] Collected: 12/30/21 1411 Lab Status: Preliminary result Specimen: Shoulder, Left Updated: 12/31/21 1601 Bacteria Cult, Aerobe/Anaerobe+Susc No growth to date. Narrative: Bacterial Culture: Placed in Bactec aerobic and Bactec anaerobic bottles Bacteria Cult, Aerobe / Anaerobe+Susc [[id number]] Collected: 12/30/21 1405 Lab Status: Preliminary result Specimen: Synovial Fluid, Left Shoulder Updated: 12/31/21 1601 Bacteria Cult, Aerobe/Anaerobe+Susc No growth to date. Narrative: Bacterial Culture: Placed in Bactec aerobic and Bactec anaerobic bottles Bacteria Cult, Aerobe / Anaerobe+Susc [[id number]] Collected: 12/30/21 1404 Lab Status: Preliminary result Specimen: Shoulder, Left Updated: 12/31/21 1601 Bacteria Cult, Aerobe/Anaerobe+Susc No growth to date. Narrative: Bacterial Culture: Placed in Bactec aerobic and Bactec anaerobic bottles Bacteria Cult, Aerobe / Anaerobe+Susc [[id number]] Collected: 12/30/21 1403 Lab Status: Preliminary result Specimen: Shoulder, Left Updated: 12/31/21 1601 Bacteria Cult, Aerobe/Anaerobe+Susc No growth to date. Narrative: Bacterial Culture: Placed in Bactec aerobic and Bactec anaerobic bottles Bacteria Cult, Aerobe / Anaerobe+Susc [[id number]] Collected: 12/30/21 1403 Lab Status: Preliminary result Specimen: Shoulder, Left Updated: 12/31/21 1601 Bacteria Cult, Aerobe/Anaerobe+Susc No growth to date. Narrative: Bacterial Culture: Placed in Bactec aerobic and Bactec anaerobic bottles SARS Coronavirus 2, Molecular Detection, PCR, Varies Asymptomatic [[id number]] Collected: 12/29/21 1111 Lab Status: Final result [...] ----ADDITIONAL INFORMATION---- This RT-PCR test using the RedMart SARS-CoV-2 Assay ( [employer].) performed on the RedMart Two Module System has received Emergency Use Authorization (EUA) by the U.S. Food and Drug Administration, and is modified from the management recruiter's instructions with a bridging study. Performance characteristics were verified by [facility] in a manner consistent with CLIA requirements. Visit the CDC website: https://www.cdc.gov/coronavirus/ for the most recent guidelines on Coronavirus testing. 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 Primary service to follow labs while patient is hospitalized. [place] pharmacist to adjust dosing after dismissal 4. [...] at this time. Please page Ortho [facility] service pager at [phone] with any questions. ?? Jose Guadalupe Nixon [...] - Date/Time Bacteria Cult, Aerobe / Anaerobe+Susc [[id number]] Collected: 12/30/21 1411 Lab Status: In process Specimen: Shoulder, Left Updated: 12/30/21 1540 Narrative: Bacterial Culture: Placed in Bactec aerobic and Bactec anaerobic bottles Bacteria Cult, Aerobe / Anaerobe+Susc [[id number]] Collected: 12/30/21 1405 Lab Status: In process Specimen: Synovial Fluid, Left Shoulder Updated: 12/30/21 1519 Narrative: Bacterial Culture: Placed in Bactec aerobic and Bactec anaerobic bottles Bacteria Cult, Aerobe / Anaerobe+Susc [[id number]] Collected: 12/30/21 1404 Lab Status: In process Specimen: Shoulder, Left Updated: 12/30/21 1536 Narrative: Bacterial Culture: Placed in Bactec aerobic and Bactec anaerobic bottles Bacteria Cult, Aerobe / Anaerobe+Susc [[id number]] Collected: 12/30/21 1403 Lab Status: In process Specimen: Shoulder, Left Updated: 12/30/21 1533 Narrative: Bacterial Culture: Placed in Bactec aerobic and Bactec anaerobic bottles Bacteria Cult, Aerobe / Anaerobe+Susc [[id number]] Collected: 12/30/21 1403 Lab Status: In process Specimen: Shoulder, Left Updated: 12/30/21 1538 Narrative: Bacterial Culture: Placed in Bactec aerobic and Bactec anaerobic bottles SARS Coronavirus 2, Molecular Detection, PCR, Varies Asymptomatic [[id number]] Collected: 12/29/21 1111 Lab Status: Final result [...] ----ADDITIONAL INFORMATION---- This RT-PCR test using the RedMart SARS-CoV-2 Assay ( [employer]s.) performed on the RedMart Two Module System has received Emergency Use Authorization (EUA) by the U.S. Food and Drug Administration, and is modified from the management recruiter's instructions with a bridging study. Performance characteristics were verified by [facility] in a manner consistent with CLIA requirements. Visit the CDC website: https://www.cdc.gov/coronavirus/ for the most recent guidelines on Coronavirus testing. Fact Sheet for Healthcare Providers: https://www.fda.gov/media/520190/download Fact Sheet for Patients: https://www.fda.gov/media/384310/download ASSESSMENT / PLAN IMPRESSION/REPORT/PLAN #1 Status post [...] please page Ortho House at [facility] [phone] Trey Phan R.N. - 12/31/2021 7:34 AM [...] - Date/Time Bacteria Cult, Aerobe / Anaerobe+Susc [[id number]] Collected: 12/30/21 1411 Lab Status: In process Specimen: Shoulder, Left Updated: 12/30/21 1540 Narrative: Bacterial Culture: Placed in Bactec aerobic and Bactec anaerobic bottles Bacteria Cult, Aerobe / Anaerobe+Susc [[id number]] Collected: 12/30/21 1405 Lab Status: In process Specimen: Synovial Fluid, Left Shoulder Updated: 12/30/21 1519 Narrative: Bacterial Culture: Placed in Bactec aerobic and Bactec anaerobic bottles Bacteria Cult, Aerobe / Anaerobe+Susc [[id number]] Collected: 12/30/21 1404 Lab Status: In process Specimen: Shoulder, Left Updated: 12/30/21 1536 Narrative: Bacterial Culture: Placed in Bactec aerobic and Bactec anaerobic bottles Bacteria Cult, Aerobe / Anaerobe+Susc [[id number]] Collected: 12/30/21 1403 Lab Status: In process Specimen: Shoulder, Left Updated: 12/30/21 1533 Narrative: Bacterial Culture: Placed in Bactec aerobic and Bactec anaerobic bottles Bacteria Cult, Aerobe / Anaerobe+Susc [[id number]] Collected: 12/30/21 1403 Lab Status: In process Specimen: Shoulder, Left Updated: 12/30/21 1538 Narrative: Bacterial Culture: Placed in Bactec aerobic and Bactec anaerobic bottles SARS Coronavirus 2, Molecular Detection, PCR, Varies Asymptomatic [[id number]] Collected: 12/29/21 1111 Lab Status: Final result [...] ----ADDITIONAL INFORMATION---- This RT-PCR test using the RedMart SARS-CoV-2 Assay ( [employer]s.) performed on the RedMart Two Module System has received Emergency Use Authorization (EUA) by the U.S. Food and Drug Administration, and is modified from the management recruiter's instructions with a bridging study. Performance characteristics were verified by [facility] in a manner consistent with CLIA requirements. Visit the CDC website: https://www.cdc.gov/coronavirus/ for the most recent guidelines on Coronavirus testing. Fact Sheet for Healthcare Providers: https://www.fda.gov/media/715896/download Fact Sheet for Patients: https://www.fda.gov/media/787113/download ASSESSMENT / PLAN IMPRESSION/REPORT/PLAN #1 Status post [...] Jey Matos DO Shoulder & Elbow Fellow [facility] Orthopaedic Surgery For any questions or concerns from 6 am until 6 pm, please page Jam service For urgent matters from 6 pm until 6 am, please page [facility] at [facility] [phone] R VEHICLE LICENCE EXAMINER Trey Rdz R.N. - 12/30/2021 4:39 PM [...] Care Plan:continue current management per plan/IPS protocol R VEHICLE LICENCE EXAMINER Feli Viveros, PharmBrittonDBritton, R.Ph. - 12/30/2021 11:33 [...] home. She is registered with the state [facility] for medical cannabis and she gets her meds from a [place] dispensary. She was told to leave her [...] Take 150 mg by mouth every morning. wovwglnjqs-fkkuqcubdhgxd-zuuz (ESGIC) 50-325-40 mg per tablet Past Week [...] by mouth 2 (two) times a day. R VEHICLE LICENCE EXAMINER documented in this encounter Procedure Notes Soraida [...] to release the adhesive from the skin. http://FraudMetrix/products/secureportiv R VEHICLE LICENCE EXAMINER documented in this encounter Consult Notes Ruth [...] (HCC) ??? Nicotine Dependence Unspecified ??? 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 ABDOMINOPLASTY ??? ARTHROPLASTY - RESECTION SHOULDER Left 12/30/2021 Procedure: ARTHROPLASTY RESECTION SHOULDER.; Surgeon: Cyrus Polk M.D.; Location: [facility] OR ??? BACK SURGERY 1998 [...] Right Lives With: Alone Receives Help From: field attendant, Family, Friend(s) ADL Assistance: Required assistance ADL Assistance Comments: Gets help from CERTIFIED ORTHOTIST PRACTICE MANAGER for her bath/shower and for her meals IADL/Homemaking Assistance: Required assistance IADL/Homemaking Assistance Comments: Gets help for housecleaning Driving: Independent Occupational Role: On disability Prior Mobility/Functional Transfers Level of [place]: Modified independent Gait Devices/Wheelchair Used: Cane Gait [...] session with call light in reach and CERTIFIED ORTHOTIST PRACTICE MANAGER present, all needs metand questions answered. Contact monitoring: PPE used during therapy: Therapist was wearing the following PPE throughout entire session: surgicalmask and eye protection Patient was wearing a mask during therapy session: yes, when out of room Outcome Measures [facility] Inpatient Short Form: -[facility] Basic [...] 3-5 steps with a railing?: A Lot -[facility] Basic Mobility (V.2) Raw Score: 17 -[facility] Basic Mobility (V.2) Standardized Score: 39.67 Interpretation: Clinicians answer the -[facility] Inpatient Short Form based on observed [...] (min): 36 min Ruth Gonzalez P.T., D.P.T. R VEHICLE LICENCE EXAMINER Thao You L.I.C.SBrenton, M.S.W. - 12/31/2021 2:04 PM CSTAssociated Order(s): IP CONSULT TO CARE MANAGEMENT; IP CONSULT TO CARE MANAGEMENT; IP CONSULT TO CARE MANAGEMENT Psychosocial Assessment SUBJECTIVE DEMOGRAPHIC INFORMATION Person(s) present during interview: Patient Primary care clinic and provider: [facility] Primary Language: Senegalese Legal Information: Legal decision maker for self [...] / Household Status: Patient resides alone in [place], [place]. She lives in a two bedroom apartment. Patient has four adultchildren two of whom live in [place]. Patient son Rafal lives next door to patient. Support Systems: Family members, Friends/neighbors. We have not received permission to contact them. Primary caregiver: Self Accompanied by/Relationship: None Support System: Family members, Friends/neighbors Spirituality / Gnosticist / Culture: , None History: No Education: High school Employment: Disabled Psychosocial Risk Factors impacting the patient: Resides alone, mental health issues Abuse, Neglect, Maltreatment, Trauma: Current: None reported. Past: None reported. ENVIRONMENTAL SUPPORTS Current Living Situation: Private residence Patient's Home Environment: Resides in a two bedroom apartment on the main [facility] Care Facility Name (if applicable): [...] Behavior: Oriented Communication: Reads, writes and speaks Senegalese It is anticipated that the patient will need assistance with .Dressing,bathing, meal prep, housekeeping, shopping ASSISTIVE DEVICES Patient has the following equipment: Eyeglasses, Dentures upper, Dentures lower, cane, walker Patient anticipates potentially needing the following additional equipment: None Transportation needs: Independent to drive, support from family and friends SERVICES REQUESTED Infusion therapy GEOMAGNETICIAN Formal and Informal Resources: Patient receives home health aid services three times per week and group home visit one time every two weeks through [facility]. FINANCES/INSURANCE Primary insurance: MEDICARE A AND B Secondary insurance: MEDICA ADVANCE DIRECTIVES Advance Directive: Patient does not have advance directive, does not want information DISCHARGE PLANNING Patient is planning on returning home upon her discharge. She currently receives home health aid services and group home through [facility]. Patient also [...] good support group consisting of family, [facility]. INTERVENTIONS ?? Psychosocial assessment ?? Rapport [...] of care/plan: None Joe Ervin, M.S.W. 12/31/2021 R VEHICLE LICENCE EXAMINER Jose Guadalupe Nixon M.D. - 12/31/2021 7:31 AM CSTAssociated Order(s): IP CONSULT TO INFECTIOUS DISEASES Infectious Diseases Orthopedic Surgery [facility] Consulting Service Consult Note SUBJECTIVE REASON FOR [...] resistance on OSH AST. She presented to [facility] (unclear if on antibiotics) for further evaluation given persistent L shoulder pain 08/2021 prompting aspiration (09/25/21) which revealed elevated TNC (01295) with 81% PMNs with cultures positive for1 [...] patient was subsequently admitted to [facility] for further management. Intraoperative cultures and synovial [...] - Date/Time Bacteria Cult, Aerobe / Anaerobe+Susc [[id number]] Collected: 12/30/21 1411 Lab Status: In process Specimen: Shoulder, Left Updated: 12/30/21 1540 Narrative: Bacterial Culture: Placed in Bactec aerobic and Bactec anaerobic bottles Bacteria Cult, Aerobe / Anaerobe+Susc [[id number]] Collected: 12/30/21 1405 Lab Status: In process Specimen: Synovial Fluid, Left Shoulder Updated: 12/30/21 1519 Narrative: Bacterial Culture: Placed in Bactec aerobic and Bactec anaerobic bottles Bacteria Cult, Aerobe / Anaerobe+Susc [[id number]] Collected: 12/30/21 1404 Lab Status: In process Specimen: Shoulder, Left Updated: 12/30/21 1536 Narrative: Bacterial Culture: Placed in Bactec aerobic and Bactec anaerobic bottles Bacteria Cult, Aerobe / Anaerobe+Susc [[id number]] Collected: 12/30/21 1403 Lab Status: In process Specimen: Shoulder, Left Updated: 12/30/21 1533 Narrative: Bacterial Culture: Placed in Bactec aerobic and Bactec anaerobic bottles Bacteria Cult, Aerobe / Anaerobe+Susc [[id number]] Collected: 12/30/21 1403 Lab Status: In process Specimen: Shoulder, Left Updated: 12/30/21 1538 Narrative: Bacterial Culture: Placed in Bactec aerobic and Bactec anaerobic bottles SARS Coronavirus 2, Molecular Detection, PCR, Varies Asymptomatic [[id number]] Collected: 12/29/21 1111 Lab Status: Final result [...] ----ADDITIONAL INFORMATION---- This RT-PCR test using the RedMart SARS-CoV-2 Assay ( [employer].) performed on the RedMart Two Module System has received Emergency Use Authorization (EUA) by the U.S. Food and Drug Administration, and is modified from the management recruiter's instructions with a bridging study. Performance characteristics were verified by [facility] in a manner consistent with CLIA requirements. Visit the CDC website: https://www.cdc.gov/coronavirus/ for the most recent guidelines on Coronavirus testing. 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 Please page the Ortho [facility] service pager at [phone] with questions. Thank you for the consultation. Jose Guadalupe Nixon M.D. R VEHICLE LICENCE EXAMINER Associated attestation - Gucci Salvador M.D. - 12/31/2021 6:07 PM MOTOR VEHICLE LICENCE EXAMINER DEMOGRAPHIC INFORMATION [facility] Number:[phone] Patient Name: Angie Mosquera Date: [...] Oxycodone. Oxycodone filled here at [facility] pharmacy. Patient going home with an interscalene block OnQ pump. Transportation provided by her son. R VEHICLE LICENCE EXAMINER Fanny Sifuentes R.N. - 12/31/2021 11:00 PM [...] Nasal mucous membranes remain intact Outcome: Progressing R VEHICLE LICENCE EXAMINER Ezequiel Hernandez R.N. - 12/30/2021 10:27 PM [...] staff assistance to bathroom. Navin Hernandez R.N. R VEHICLE LICENCE EXAMINER documented in this encounter OR Notes Op Note - Cyrus Polk M.D. - 12/30/2021 2:50 PM CST STAFF: Cyrus Polk M.D. RESIDENT: Dario Carrera M.D. PRE-OPERATIVE DIAGNOSIS Left infected reverse arthroplasty. POST-OPERATIVE DIAGNOSIS Left infected reverse arthroplasty. A personal banking assistant was necessary for one or more [...] Cyrus Polk M.D. CT CT Job ID: [id number] R VEHICLE LICENCE EXAMINER documented in this encounter Miscellaneous Notes Hospital [...] and pain is controlled on oral medications. R VEHICLE LICENCE EXAMINER documented in this encounter Plan of Treatment Scheduled Referrals Name Type Priority Associated Diagnoses Order [facility] Outpatient Referral Routine Direct Infection Of Ordered: Health Referral Left Shoulder In 01/01/20 22 Infectious And Parasitic Diseases Classified Elsewhere (HCC) documented as of this encounter Procedures Procedure Name Priority Date/Time Associated Comments Diagnosis PLACE PERIPHERALLY Routine 01/01/2022 12:11 Resul ts for this INSERTED CENTRAL PM MOTOR VEHICLE LICENCE EXAMINER procedure a re in CATHETER (PICC) the results section. REMOTE OXIMETRY Routine 12/31/2021 5:23 MONITORING CONT. PM MOTOR VEHICLE LICENCE EXAMINER REMOTE OXIMETRY Routine 12/31/2021 5:23 MONITORING CONT. PM MOTOR VEHICLE LICENCE EXAMINER BACTERIA / MANDI Routine 12/31/2021 4:04 Result s for this CULTURE, BLOOD PM MOTOR VEHICLE LICENCE EXAMINER procedure are in the results section. BACTERIA / MANDI Routine 12/31/2021 3:52 Result s for this CULTURE, BLOOD PM MOTOR VEHICLE LICENCE EXAMINER procedure are in the results section. ADULT OXYGEN THERAPY Routine 12/31/2021 8:01 AM MOTOR VEHICLE LICENCE EXAMINER CBC WITH Routine 12/31/2021 4:25 Results for this DIFFERENTIAL, B AM MOTOR VEHICLE LICENCE EXAMINER procedure ar e in the results section. BASIC METABOLIC Routine 12/31/2021 4:25 Results f or this PANEL, S/P AM MOTOR VEHICLE LICENCE EXAMINER procedure are i n the results section. ADULT OXYGEN THERAPY Routine 12/30/2021 8:01 PM MOTOR VEHICLE LICENCE EXAMINER ADULT OXYGEN THERAPY Routine 12/30/2021 5:12 PM MOTOR VEHICLE LICENCE EXAMINER ADULT OXYGEN THERAPY Routine 12/30/2021 5:12 PM MOTOR VEHICLE LICENCE EXAMINER ADULT OXYGEN THERAPY Routine 12/30/2021 3:46 PM MOTOR VEHICLE LICENCE EXAMINER ADULT OXYGEN THERAPY Routine 12/30/2021 3:46 PM MOTOR VEHICLE LICENCE EXAMINER DX SHOULDER LEFT 1 RAD - Timed (for 12/30/2021 3:41 Re sults for this VIEW specific PM MOTOR VEHICLE LICENCE EXAMINER procedure are i n dates/times) the results section. SURGICAL PATHOLOGY, Routine 12/30/2021 2:15 Shoulder Joint Res ults for this FROZEN LAB PM MOTOR VEHICLE LICENCE EXAMINER Disorder Left procedure are in the results section. BACTERIA CULT, Routine 12/30/2021 2:11 Results fo r this AEROBE/ANAEROBE+SUSC PM MOTOR VEHICLE LICENCE EXAMINER procedu re are in the results section. BACTERIA CULT, Routine 12/30/2021 2:05 Results fo r this AEROBE/ANAEROBE+SUSC PM MOTOR VEHICLE LICENCE EXAMINER procedu re are in the results section. BACTERIA CULT, Routine 12/30/2021 2:04 Results fo r this AEROBE/ANAEROBE+SUSC PM MOTOR VEHICLE LICENCE EXAMINER procedu re are in the results section. BACTERIA CULT, Routine 12/30/2021 2:03 Results fo r this AEROBE/ANAEROBE+SUSC PM MOTOR VEHICLE LICENCE EXAMINER procedu re are in the results section. BACTERIA CULT, Routine 12/30/2021 2:03 Results fo r this AEROBE/ANAEROBE+SUSC PM MOTOR VEHICLE LICENCE EXAMINER procedu re are in the results section. ARTHROPLASTY 12/30/2021 12:34 Shoulder Joint RESECTION SHOULDER PM MOTOR VEHICLE LICENCE EXAMINER Disorder Left documented in this encounter Results Place peripherally inserted central catheter (PICC) (01/01/2022 12:11 PM MOTOR VEHICLE LICENCE EXAMINER) Narrative [facility] - 01/01/2022 12:11 PM MOTOR VEHICLE LICENCE EXAMINER Soraida Dick R.N. ? 01/01/2022 12:13 PM [...] to release the adhesive from the skin. [email or web address] [email or web address] Dario Carrera M.D. PROCEDURE/MINOR SURGICAL ORD ERABLES Performing Organization Address City/[facility]/ZIP Code Phon e Number MMODAL MMODAL NA Bacteria / Mandi Culture, Blood #2 (12/31/2021 4:04 PM MOTOR VEHICLE LICENCE EXAMINER) [facility] Method Time Signature Bacteria/Valerie No growth 01/05/2022 DTL da Culture, after 5 5:02 PM MOTOR VEHICLE LICENCE EXAMINER Blood days of incubation. Specimen (Source) Anatomical Collection Method Collection Time Re ceived Time Location / / Volume Laterality Blood (Blood, 12/31/2021 4:04 12/31/2021 4:51 Peripheral Draw) PM MOTOR VEHICLE LICENCE EXAMINER PM MOTOR VEHICLE LICENCE EXAMINER Comment: Specimen Source Site: Blood Narrative [facility] - 01/05/2022 5:02 PM MOTOR VEHICLE LICENCE EXAMINER Received Bactec aerobic and Bactec anaer obic bottles Dario Carrera M.D. LAB MICROBIOLOGY - GENERAL O RDERASARAH Performing Organization Address [facility]/ZIP [facility] Phon e Number [facility] [id number] [place] [address] Bacteria / Mandi Culture, Blood #1 (12/31/2021 3:52 PM MOTOR VEHICLE LICENCE EXAMINER) [facility] Method Time Signature Bacteria/Avlerie No growth 01/05/2022 DTL da Culture, after 5 5:02 PM MOTOR VEHICLE LICENCE EXAMINER Blood days of incubation. Specimen (Source) Anatomical Collection Method Collection Time Re ceived Time Location / / Volume Laterality Blood (Blood, 12/31/2021 3:52 12/31/2021 4:50 Peripheral Draw) PM MOTOR VEHICLE LICENCE EXAMINER PM MOTOR VEHICLE LICENCE EXAMINER Comment: Specimen Source Site: Blood Narrative [facility] - 01/05/2022 5:02 PM MOTOR VEHICLE LICENCE EXAMINER Received Bactec aerobic and Bactec anaer obic bottles Dario Carrera M.D. LAB MICROBIOLOGY - GENERAL O RDERABLES Performing Organization Address City/[facility]/ZIP Code Phon e Number [facility] - [address] [place], [place] [address] [place] [address] [facility] [address] (ABNORMAL) CBC with Differential, Blood (12/31/2021 4:25 AM MOTOR VEHICLE LICENCE EXAMINER) [facility] gist Method Time Signature Hemoglobin 8.9 (L) 11.6 - 12/31/2021 DTL 15.0 g/dL 5:15 AM MOTOR VEHICLE LICENCE EXAMINER Hematocrit 27.3 (L) 35.5 - 12/31/2021 DTL 44.9 % 5:15 AM MOTOR VEHICLE LICENCE EXAMINER Erythrocytes 3.26 (L) 3.92 - 12/31/2021 DTL 5.13 5:15 AM MOTOR VEHICLE LICENCE EXAMINER x10(12)/L MCV 83.7 78.2 - 12/31/2021 DTL 97.9 fL 5:15 AM MOTOR VEHICLE LICENCE EXAMINER RBC Distrib Width 19.6 (H) 12.2 - 12/31/2021 DTL 16.1 % 5:15 AM MOTOR VEHICLE LICENCE EXAMINER Platelet Count 274 157 - 371 12/31/2021 DTL x10(9)/L 5:15 AM MOTOR VEHICLE LICENCE EXAMINER Leukocytes 6.6 3.4 - 9.6 12/31/2021 DTL x10(9)/L 5:15 AM MOTOR VEHICLE LICENCE EXAMINER Neutrophils 4.91 1.56 - 12/31/2021 DTL 6.45 5:15 AM MOTOR VEHICLE LICENCE EXAMINER x10(9)/L Lymphocytes 1.10 0.95 - 12/31/2021 DTL 3.07 5:15 AM MOTOR VEHICLE LICENCE EXAMINER x10(9)/L Monocytes 0.61 0.26 - 12/31/2021 DTL 0.81 5:15 AM MOTOR VEHICLE LICENCE EXAMINER x10(9)/L Eosinophils <0.03 0.03 - 12/31/2021 DTL 0.48 5:15 AM MOTOR VEHICLE LICENCE EXAMINER x10(9)/L Basophils <0.03 0.01 - 12/31/2021 DTL 0.08 5:15 AM MOTOR VEHICLE LICENCE EXAMINER x10(9)/L Specimen Anatomical Collection Method Collection Time Receive d Time (Source) Location / / Volume Laterality Blood (Blood, 12/31/2021 4:25 AM 12/31/19 5:04 Venous) MOTOR VEHICLE LICENCE EXAMINER AM MOTOR VEHICLE LICENCE EXAMINER Dario Carrera M.D. LAB BLOOD ADD-ON Performing Organization Address City/State/ZIP Code Phon e Number [facility] - [address] [place], [place] [address] [facility] [place] [address] [facility] 200 [facility] (ABNORMAL) Basic Metabolic Panel (12/31/2021 4:25 AM MOTOR VEHICLE LICENCE EXAMINER) P athologist Signature Potassium, S 4.4 3.6 - 5.2 12/31/2021 DTL mmol/L 5:35 AM MOTOR VEHICLE LICENCE EXAMINER Sodium, S 134 (L) 135 - 145 12/31/2021 DTL mmol/L 5:35 AM MOTOR VEHICLE LICENCE EXAMINER Chloride, S 103 98 - 107 12/31/2021 DTL mmol/L 5:35 AM MOTOR VEHICLE LICENCE EXAMINER Bicarbonate, S 22 22 - 29 12/31/2021 DTL mmol/L 5:35 AM MOTOR VEHICLE LICENCE EXAMINER Anion Gap 9 7 - 15 12/31/2021 DTL 5:35 AM MOTOR VEHICLE LICENCE EXAMINER BUN (Blood Urea 21 6 - 21 12/31/2021 DTL Nitrogen), S mg/dL 5:35 AM MOTOR VEHICLE LICENCE EXAMINER Creatinine 0.74 0.59 - 12/31/2021 DTL 1.04 mg/dL 5:35 AM MOTOR VEHICLE LICENCE EXAMINER eGFR-Non 90 >=60 12/31/2021 DTL Black/ mL/min/BSA 5:35 AM MOTOR VEHICLE LICENCE EXAMINER [place] Comment: ----ADDITIONAL INFORMATION---- Estimated GFR calculated using the 2009 CKD_EPI creatinine equation. eGFR-Black/ >90 >=60 mL/min/BSA 2021 5:35 AM MOTOR VEHICLE LICENCE EXAMINER DTL Comment: ----ADDITIONAL INFORMATION---- Estimated GFR calculated using the 2009 CKD_EPI creatinine equation. Calcium, Total, S 8.7 8.6 - 10.0 mg/dL 12/31/2021 5:35 AM MOTOR VEHICLE LICENCE EXAMINER DTL Glucose, S 138 70 - 140 mg/dL 12/31/2021 5:35 AM MOTOR VEHICLE LICENCE EXAMINER D TL Specimen Anatomical Collection Method Collection Time Receive d Time (Source) Location / / Volume Laterality Blood (Blood, 12/31/2021 4:25 AM 12/31/19 5:18 Venous) MOTOR VEHICLE LICENCE EXAMINER AM MOTOR VEHICLE LICENCE EXAMINER Dario Carrera M.D. LAB BLOOD ADD-ON Performing Organization Address City/State/ZIP Code Phon e Number [facility] - [address] [place], [place] [address] [place] [address] [facility] [address] DX Shoulder Left 1 View (12/30/2021 3:41 PM MOTOR VEHICLE LICENCE EXAMINER) Anatomical Region Laterality Modality Upper Extremity, Shoulder, Musculoskeletal RST LOS, Left Computed Radiography Musculoskeletal ARZ LOS, Muskuloskeletal FLA LOS Specimen (Source) Anatomical Collection Method Collection Time Re ceived Time Location / / Volume Laterality 12/30/2021 3:54 PM MOTOR VEHICLE LICENCE EXAMINER Impressions 12/30/2021 3:59 PM MOTOR VEHICLE LICENCE EXAMINER Postoperative changes of a left shoulder arthroplasty resection and placement of an antibiotic spacer. Negat lalo for postoperative purposes. Narrative 12/30/2021 3:59 PM MOTOR VEHICLE LICENCE EXAMINER EXAM: ??DX SHOULDER LEFT 1 VIEW Procedure Note Timothy Resendiz M.D. - 12/30/2021Forma tting of this note might be different from the original. EXAM: DX SHOULDER LEFT 1 VIEW IMPRESSION: Postoperative changes of a left shoulder arthroplasty resection and placement of an antibiotic spacer. Negat lalo for postoperative purposes. Dario [facility] Surgical Pathology, Frozen Lab (12/30/2021 2:15 PM MOTOR VEHICLE LICENCE EXAMINER) Component Value Ref Test Analysis Performed At [facility] Range Method Time Signature 01/01/2022 M[facility] 8:22 AM MOTOR VEHICLE LICENCE EXAMINER Participated in Kelly Howard 01/01/2022 [facility] the D.O.-Pathology 8:22 AM MOTOR VEHICLE LICENCE EXAMINER Interpretation Resident Report Solomon Marcum M.D. 01/01/2022 [facility] electronically 8:22 AM MOTOR VEHICLE LICENCE EXAMINER signed by I verify that I have examined all relevant slides/materials for the specimen(s) and rendered or confirmed the diagnosis. Frozen A. ??Synovium, left shoulder, excision: ??Synovial tissue 01/01/2022 [facility] Intraoperative with 8:22 AM MOTOR VEHICLE LICENCE EXAMINER Report acute inflammation (>5 neutrophils/high power field). Signed by Solomon Marcum M.D. 12/31/2021 8:17 AM Gross Description A. ??Received fresh labeled left shoulder is a 1.4 x 0.9 x 01/01/2022 M[facility] 0.4 cm aggregate of red and campbell fibrous tissue, which is 8:22 AM MOTOR VEHICLE LICENCE EXAMINER soft. ??All submitted for frozen and permanent sections. Grossed by Nikki Gallardo. Block Summary A Left shoulder 01/01/2022 [facility] A1 Left shoulder-frozen 8:22 AM MOTOR VEHICLE LICENCE EXAMINER Interpretation FINAL DIAGNOSIS 01/01/2022 [facility] 8:22 AM MOTOR VEHICLE LICENCE EXAMINER A. ??Synovium, left shoulder, excision: ??Synovial tissue with acute inflammation (>5 neutrophils/high power field). Specimen (Source) Anatomical Collection Method Collection Time Re ceived Time Location / / Volume Laterality Tissue (Shoulder, 12/30/2021 2:15 PM Left) MOTOR VEHICLE LICENCE EXAMINER Narrative This result has an attachment that is no t available. Cyrus Polk M.D. LAB SURG PATH ORDERABLES Performing Organization Address [facility] Phon e Number [facility] - [address] [place], [place] [id number] [place] [address] [address] [facility] Bacteria Cult, Aerobe / Anaerobe+Susc (12/30/2021 2:11 PM MOTOR VEHICLE LICENCE EXAMINER) [facility] Method Time Signature Bacteria Cult, No growth 01/13/2022 DTL Aerobe/Anaerob after 14 4:02 PM MOTOR VEHICLE LICENCE EXAMINER e+Susc days of incubation. Specimen Anatomical Collection Method Collection Time Receive d Time (Source) Location / / Volume Laterality Shoulder, Left 12/30/2021 2:11 PM 022 3:38 MOTOR VEHICLE LICENCE EXAMINER PM MOTOR VEHICLE LICENCE EXAMINER Comment: Specimen Source Site: Tissue #4 Narrative [facility] - [facility] - 01/13/2022 4:02 PM MOTOR VEHICLE LICENCE EXAMINER Bacterial Culture: Placed in Bactec aero bic and Bactec anaerobic bottles Cyrus Polk M.D. LAB MICROBIOLOGY - GENERAL O RDERABLES Performing Organization Address City/[facility] Phon e Number [facility] - [address] [place], [place] [address] [facility] [place] [place], [place] [id number] [place] [address] [address] [facility] (ABNORMAL) Bacteria Cult, Aerobe / Anaerobe+Susc (12/30/2021 2:05 PM MOTOR VEHICLE LICENCE EXAMINER) Component Value Ref Test Analysis [facility]formed At [facility] Method Time Signature Bacteria STAPHYLOCOCCUS EPIDERMIDIS 01/11/2022 DT L Cult, Growth after 4 days 7:55 AM MOTOR VEHICLE LICENCE EXAMINER Aerobe/Anaero (A) be+Susc Comment: Semi-Urgent Result. Semi-Urgent This is a semi-urgent result [facility] - (ORTIZ) [facility] S Specimen Anatomical Collection Method Collection Time Receive d Time (Source) Location / / Volume Laterality Synovial Fluid, 12/30/2021 2:05 PM 2021 3:17 Left Shoulder MOTOR VEHICLE LICENCE EXAMINER PM MOTOR VEHICLE LICENCE EXAMINER Comment: Specimen Source Site: Fluid Narrative [facility] - [facility] - 01/11/2022 7:55 AM MOTOR VEHICLE LICENCE EXAMINER Bacterial Culture: Placed in Bactec aero bic [...] Organization Address City/State/ZIP Code Phon e Number [facility] - [address] [place] [address] [facility] [place] [address] [facility] [address] [facility] Bacteria Cult, Aerobe / Anaerobe+Susc (12/30/2021 2:04 PM MOTOR VEHICLE LICENCE EXAMINER) [facility] Method Time Signature Bacteria Cult, No growth 01/13/2022 DTL Aerobe/Anaerob after 14 4:02 PM MOTOR VEHICLE LICENCE EXAMINER e+Susc days of incubation. Specimen Anatomical Collection Method Collection Time Receive d Time (Source) Location / / Volume Laterality Shoulder, Left 12/30/2021 2:04 PM 022 3:34 MOTOR VEHICLE LICENCE EXAMINER PM MOTOR VEHICLE LICENCE EXAMINER Comment: Specimen Source Site: Tissue #3 [facility] - 01/13/2022 4:02 PM MOTOR VEHICLE LICENCE EXAMINER Bacterial Culture: Placed in Bactec aero bic and Bactec anaerobic bottles Cyrus Polk M.D. LAB MICROBIOLOGY - GENERAL O MARY Performing Organization Address City/[facility] Phon e Number [facility] - [address] [place], [place] [address] [facility] [address] Bacteria Cult, Aerobe / Anaerobe+Susc (12/30/2021 2:03 PM MOTOR VEHICLE LICENCE EXAMINER) [facility] Method Time Signature Bacteria Cult, No growth 01/13/2022 DTL Aerobe/Anaerob after 14 4:02 PM MOTOR VEHICLE LICENCE EXAMINER e+Susc days of incubation. Specimen Anatomical Collection Method Collection Time Receive d Time (Source) Location / / Volume Laterality Shoulder, Left 12/30/2021 2:03 PM 022 3:37 MOTOR VEHICLE LICENCE EXAMINER PM MOTOR VEHICLE LICENCE EXAMINER Comment: Specimen Source Site: Tissue #2 [facility] - 01/13/2022 4:02 PM MOTOR VEHICLE LICENCE EXAMINER Bacterial Culture: Placed in Bactec aero bic and Bactec anaerobic bottles Cyrus Polk M.D. LAB MICROBIOLOGY - GENERAL O MARY Performing Organization Address City/State/[facility] Code Phon e Number [facility] - [address] [place], [place] [address] [facility] [place], [place] [id number] [place] [address] Bacteria Cult, Aerobe / Anaerobe+Susc (12/30/2021 2:03 PM MOTOR VEHICLE LICENCE EXAMINER) [facility] Method Time Signature Bacteria Cult, No growth 01/13/2022 DTL Aerobe/Anaerob after 14 4:02 PM MOTOR VEHICLE LICENCE EXAMINER e+Susc days of incubation. Specimen Anatomical Collection Method Collection Time Receive d Time (Source) Location / / Volume Laterality Shoulder, Left 12/30/2021 2:03 PM 022 3:31 MOTOR VEHICLE LICENCE EXAMINER PM MOTOR VEHICLE LICENCE EXAMINER Comment: Specimen Source Site: Tissue #1 Narrative [facility] - [facility] - 01/13/2022 4:02 PM MOTOR VEHICLE LICENCE EXAMINER Bacterial Culture: Placed in Bactec aero bic and Bactec anaerobic bottles Cyurs Polk M.D. LAB MICROBIOLOGY - GENERAL O RDERABLES Performing Organization Address City/State/ZIP Code Phon e Number [facility] - [address] [place], [place] [address] [facility] [place] [address] [facility] [address] documented in this encounter [...] tablet 1,000 mg Given 12/30/2021 12:02 PM MOTOR VEHICLE LICENCE EXAMINER 1,00 0 mg (TYLENOL) 1,000 mg, oral, Once, On Tue12/30/21 at 1215, For 1 dose, Pre-Op acetaminophen tablet 1,000 mg (TYLENOL) Given 01/01/2022 11:36 AM MOTOR VEHICLE LICENCE EXAMINER 1,000 mg 1,000 mg, oral, Every 6 hours, First dose on Tue12/30/21 at 1800 Given 01/01/2022 6:28 AM MOTOR VEHICLE LICENCE EXAMINER 1,000 mg Given 12/31/2021 11:51 PM MOTOR VEHICLE LICENCE EXAMINER 1,000 mg albuterol nebulizer solution 2.5 mg Given 12/31/2021 4:44 PM MOTOR VEHICLE LICENCE EXAMINER 2.5 mg 2.5 mg, nebulization, Every 6 hours PRN, wheezing, Starting on Tue12/30/21 at 1711, Albuterol nebs were interchanged for albuterol/levalbuterol MDI (same frequency) atorvastatin tablet 80 mg (LIPITOR) Given 12/31/2021 8:57 PM MOTOR VEHICLE LICENCE EXAMINER 80 mg 80 mg, oral, Daily at bedtime, First dose on Tue12/30/21 at 2100 Given 12/30/2021 9:55 PM MOTOR VEHICLE LICENCE EXAMINER 80 mg benzonatate capsule 100 mg (TESSALON PER LES) Given 01/01/2022 3:10 AM MOTOR VEHICLE LICENCE EXAMINER 100 mg 100 mg, oral, 3 times daily PRN, cough, Starting on Tue12/31/21 at 1702, Swallow whole. Do NOT crush, chew or open capsule. Given 12/31/2021 5:39 PM MOTOR VEHICLE LICENCE EXAMINER 100 mg bupivacaine PF 0.2 % 550 mL in NaCl New Bag 01/01/2022 3:15 PM MOTOR VEHICLE LICENCE EXAMINER 6 mL/hr 6 mL/hr 0.9% On-Q pain pump (CB004) 6 mL/hr, nerve catheter, Continuous, Starting on Tue01/01/22 at 1500, PACU & Post-Op, Location: Nerve Catheter Location, Nerve Catheter Location: Interscalene, Device: On-Q Pump bupivacaine PF 0.2 % in Rate/Dose Verify 01/01/2022 1:00 AM MOTOR VEHICLE LICENCE EXAMINER 6 mL/ hr 6 mL/hr NaCl 0.9% 341 mL infusion (MARCAINE) 6 mL/hr, nerve catheter, Continuous, Starting on Tue12/30/21 at 1600, PACU & Post-Op, Nerve Catheter Location: Interscalene, Device: Hospital Infusion Pump Rate/Dose Verify 12/31/2021 12:11 AM MOTOR VEHICLE LICENCE EXAMINER 6 mL/hr 6 mL/hr New Bag 12/30/2021 3:49 PM MOTOR VEHICLE LICENCE EXAMINER 6 mL/hr 6 mL/hr buPROPion XL 24 hr tablet 150 mg (WELLBUTRIN Given 02/2022 8:35 AM MOTOR VEHICLE LICENCE EXAMINER 150 mg XL) 150 mg, oral, Every morning, First dose on Tue12/31/21 at 0900, Swallow whole. Do NOT crush, chew, or split tablet. Given 12/31/2021 8:16 AM MOTOR VEHICLE LICENCE EXAMINER 150 mg calcium carbonate chewable tablet Given 12/31/2021 11: 46 PM MOTOR VEHICLE LICENCE EXAMINER 400 mg of calcium 400 mg of calcium (TUMS) 400 mg of calcium, oral, Every 2 hour PRN, indigestion, Starting on Tue12/30/21 at 1711, Doses listed are in mg of elemental calcium. Take with food. 500 mg calcium carbonate contains 200 mg of elemental calcium. Given 12/31/2021 9:15 PM MOTOR VEHICLE LICENCE EXAMINER 400 mg of calcium carboxymethylcellulose 0.5 % ophthalmic Given 01/01/2022 1:15 AM MOTOR VEHICLE LICENCE EXAMINER 2 drops solution 2 drop (REFRESH PLUS) 2 drop, both eyes, 4 times daily PRN, dry eyes, Starting on Tue12/30/21 at 1711 Given 12/31/2021 12:31 PM MOTOR VEHICLE LICENCE EXAMINER 2 drops Given 12/31/2021 12:23 AM MOTOR VEHICLE LICENCE EXAMINER 2 drops ceFAZolin in dextrose (iso-os) IVPB 2 New Bag 01/01/2022 6:27 AM MOTOR VEHICLE LICENCE EXAMINER 2 g 200 mL/hr g (ANCEF) 2 g, intravenous, at 200 mL/hr, Administer over 30 Minutes, Every 8 hours, First dose on Tue12/30/21 at 2200, Start within 8 hours of last IV dose., Drug Monitoring Program: Pharmacist to adjust medication dosing based on indication and drug clearance factors., Indications: Bone and/or joint infection New Bag 12/31/2021 10:32 PM MOTOR VEHICLE LICENCE EXAMINER 2 g 200 mL/hr New Bag 12/31/2021 2:21 PM MOTOR VEHICLE LICENCE EXAMINER 2 g 200 mL/hr cefTRIAXone in dextrose (iso-osm) IVPB New Bag 01/01/2022 2:38 PM MOTOR VEHICLE LICENCE EXAMINER 2 g 200 mL/hr 2 g (ROCEPHIN) 2 g, intravenous, at 200 mL/hr, Administer over 15 Minutes, Daily before lunch, First dose on Tue01/01/22 at 1345, Drug Monitoring Program: Pharmacist to adjust medication dosing based on indication and drug clearance factors., Indications: Bone and/or joint infection cetirizine tablet 10 mg (ZyrTEC) Given 01/01/2022 8:35 AM MOTOR VEHICLE LICENCE EXAMINER 10 mg 10 mg, oral, 2 times daily, First dose on Tue12/30/21 at 2100, Drug Monitoring Program: Pharmacist to adjust medication dosing based on indication and drug clearance factors. Given 12/31/2021 8:57 PM MOTOR VEHICLE LICENCE EXAMINER 10 mg Given 12/31/2021 8:16 AM MOTOR VEHICLE LICENCE EXAMINER 10 mg cholecalciferol (vitamin D3) tablet 25 m cg Given 01/01/2022 8:35 AM MOTOR VEHICLE LICENCE EXAMINER 25 mcg 25 mcg, oral, Daily, First dose on Tue12/31/21 at 0900, cholecalciferol (vitamin D3) orderable was interchanged for cholecalciferol (vitamin D3) tablet/capsule Given 12/31/2021 8:16 AM MOTOR VEHICLE LICENCE EXAMINER 25 mcg D5W infusion 10-250 mL/hr, intravenous, [...] 5 mg (VALIUM) Given 12/31/2021 12:31 PM MOTOR VEHICLE LICENCE EXAMINER 5 mg 5 mg, oral, 4 times daily PRN, muscle spasms, Starting on Tue12/30/21 at 2243 Given 12/31/2021 1:59 AM MOTOR VEHICLE LICENCE EXAMINER 5 mg diphenhydrAMINE capsule 25 mg (BENADRYL) 25 mg, oral, Daily PRN, itching, Starting on Tue 2 at 0854 diphenhydrAMINE capsule 75 mg (BENADRYL) Given 01/01/2022 8:49 AM MOTOR VEHICLE LICENCE EXAMINER 75 mg 75 mg, oral, Bedtime PRN, sleep, Starting on Tue12/30/21 at 1715 FLUoxetine capsule 80 mg (PROzac) Given 01/01/2022 8:34 AM MOTOR VEHICLE LICENCE EXAMINER 80 mg 80 mg, oral, Daily, First dose on Tue12/31/21 at 0900, FLUoxetine orderable was interchanged for FLUoxetine tablet/capsule Given 12/31/2021 8:16 AM MOTOR VEHICLE LICENCE EXAMINER 80 mg fluticasone furoate 100 mcg/actuation Given 01/01/2022 8:[address] 2 puffs inhaler 2 puff (ARNUITY ELLIPTA) 2 puff, inhalation, 2 times daily, First dose on Tue12/30/21 at 2100, fluticasone furoate 100 mcg was interchanged for fluticasone MDI 110 mcg Given 12/31/2021 9:04 PM MOTOR VEHICLE LICENCE EXAMINER 2 puffs Given 12/31/2021 8:17 AM MOTOR VEHICLE LICENCE EXAMINER 2 puffs granisetron (PF) injection 1 mg (KYTRIL) Given 12/30/2021 3:57 PM MOTOR VEHICLE LICENCE EXAMINER 1 mg 1 mg, intravenous, Once as needed, nausea, vomiting, Starting on Tue12/30/21 at 1546, For 1 dose, PACU (only), If patient does not respond to ondansetron or haloperidol. (order of antiemetic administration - ondansetron then haloperidol then granisetron) haloperidol lactate injection 1 mg (HALD OL) Given 12/30/2021 4:31 PM MOTOR VEHICLE LICENCE EXAMINER 1 mg 1 mg, intravenous, Every 6 [...] injection 0.2 mg Given 12/30/2021 4:17 PM MOTOR VEHICLE LICENCE EXAMINER 0.2 mg (DILAUDID) 0.2 mg, intravenous, Every 5 min PRN, moderate pain or score 4-6 of 10, severe pain or score 7-10 of 10, Starting on Tue12/30/21 at 1546, PACU (only), Up to maximum total dose of 2 mg Given 12/30/2021 4:07 PM MOTOR VEHICLE LICENCE EXAMINER 0.2 mg Given 12/30/2021 3:55 PM MOTOR VEHICLE LICENCE EXAMINER 0.2 mg HYDROmorphone (PF) injection 0.4 mg Given 01/01/2022 4:56 AM MOTOR VEHICLE LICENCE EXAMINER 0.4 mg (DILAUDID) 0.4 mg, intravenous, Every 2 hour PRN, severe pain or score 7-10 of 10, Starting on Tue12/30/21 at 1711, For 5 doses, May administer if pain is greater than 7 after scheduled and PRN regimen exhausted. If pain remains greater than 7, notify primary service. Given 12/31/2021 11:35 AM MOTOR VEHICLE LICENCE EXAMINER 0.4 mg Given 12/31/2021 4:14 AM MOTOR VEHICLE LICENCE EXAMINER 0.4 mg ipratropium-albuteroL 0.5-2.5 mg/3 mL nebulizer Given 01/01/2022 3:15 AM MOTOR VEHICLE LICENCE EXAMINER 3 mL solution 3 mL (DUONEB) 3 mL, nebulization, 4 times daily PRN, shortness of breath, wheezing, Starting on Tue12/30/21 at 1711 ketamine injection 10 mg (KETALAR) Given 12/30/2021 12:38 PM MOTOR VEHICLE LICENCE EXAMINER 10 mg 10 mg, intravenous, Once, On Tue12/30/21 at 1300, For 1 dose, Pre-Op lactated ringers Rate/Dose Change 01/01/2022 1:00 AM MOTOR VEHICLE LICENCE EXAMINER 20 mL/hr 20 mL/hr 75 mL/hr, intravenous, Continuous, Starting on Tue12/30/21 at 1715, Until patient has 500cc po intake New Bag 12/31/2021 11:46 PM MOTOR VEHICLE LICENCE EXAMINER 75 mL/hr 75 mL/hr Rate/Dose Change 12/31/2021 3:55 AM MOTOR VEHICLE LICENCE EXAMINER 20 mL/hr 20 mL/hr lactated ringers Continued from OR 12/30/2021 4:00 PM MOTOR VEHICLE LICENCE EXAMINER 75 mL/hr 75 mL/hr 75 mL/hr, intravenous, Continuous, Starting on Tue12/30/21 at 1600, PACU & Post-Op lamoTRIgine tablet 200 mg (LaMICtaL) Given 01/01/2022 8:34 AM MOTOR VEHICLE LICENCE EXAMINER 200 mg 200 mg, oral, 2 times daily, First dose on Tue12/30/21 at 2100 Given 12/31/2021 8:56 PM MOTOR VEHICLE LICENCE EXAMINER 200 mg Given 12/31/2021 8:16 AM MOTOR VEHICLE LICENCE EXAMINER 200 mg midazolam (PF) injection 1 mg (VERSED) Given 12/30/2021 12:38 PM MOTOR VEHICLE LICENCE EXAMINER 2 mg 1 mg, intravenous, Every 2 [...] 4 mg (ZOFRAN) Given 01/01/2022 1:16 AM MOTOR VEHICLE LICENCE EXAMINER 4 mg 4 mg, intravenous, Every 6 hours PRN, nausea, vomiting, Starting on Tue12/30/21 at 1711, For 48 hours, Reassess for nausea or vomiting after at least 10 minutes. If nausea or vomiting persists administer next ordered antiemetic medications (order for antiemetic medication administration ondansetron then haloperidol then promethazine). Given 12/31/2021 8:16 AM MOTOR VEHICLE LICENCE EXAMINER 4 mg oxyCODONE 12 hr tablet 20 mg (OxyCONTIN) Given 12/30/2021 12:35 PM MOTOR VEHICLE LICENCE EXAMINER 20 mg 20 mg, oral, Once, On Tue12/30/21 at 1300, For 1 dose, Pre-Op, Swallow whole. Do NOT crush, chew, or split tablet. oxyCODONE IR tablet 10 mg (ROXICODONE) Given 12/31/2021 10:43 AM MOTOR VEHICLE LICENCE EXAMINER 10 mg 10 mg, oral, Every 4 hours PRN, severe pain or score 7-10 of 10, Starting on Tue12/30/21 at 1536 Given 12/31/2021 6:19 AM MOTOR VEHICLE LICENCE EXAMINER 10 mg Given 12/31/2021 12:22 AM MOTOR VEHICLE LICENCE EXAMINER 10 mg oxyCODONE IR tablet 10 mg (ROXICODONE) Given 12/31/2021 2:21 PM MOTOR VEHICLE LICENCE EXAMINER 10 mg 10 mg, oral, Every 4 hours PRN, severe pain or score 7-10 of 10, Starting on Tue12/31/21 at 1415 oxyCODONE IR tablet 10 mg (ROXICODONE) Given 01/01/2022 2:38 PM MOTOR VEHICLE LICENCE EXAMINER 10 mg 10 mg, oral, Every 3 hours PRN, severe pain or score 7-10 of 10, Starting on Tue12/31/21 at 1745 Given 01/01/2022 11:35 AM MOTOR VEHICLE LICENCE EXAMINER 10 mg Given 01/01/2022 7:07 AM MOTOR VEHICLE LICENCE EXAMINER 10 mg oxyCODONE IR tablet 5 mg (ROXICODONE) 5 mg, oral, Every 3 hours PRN, moderate pain or score 4-6 of 10, Starting on Clementine 12/31/21 at 1745, If patient is >75 consider changing to 2.5-5mg scale pantoprazole DR tablet 40 mg (PROTONIX) Given 01/01/2022 3:46 PM MOTOR VEHICLE LICENCE EXAMINER 40 mg 40 mg, oral, 2 times daily before breakfast and dinner, First dose on Tue12/31/21 at 0700, pantoprazole 40 mg oral twice daily was interchanged for esomeprazole 20 or 40 mg oral twice daily Swallow whole. Do NOT crush, chew, or split tablet. Given 01/01/2022 6:29 AM MOTOR VEHICLE LICENCE EXAMINER 40 mg Given 12/31/2021 4:47 PM MOTOR VEHICLE LICENCE EXAMINER 40 mg pregabalin capsule 600 mg (LYRICA) Given 01/01/2022 8:34 AM MOTOR VEHICLE LICENCE EXAMINER 600 mg 600 mg, oral, 2 times daily, First dose on Tue12/30/21 at 2100 Given 12/31/2021 8:56 PM MOTOR VEHICLE LICENCE EXAMINER 600 mg Given 12/31/2021 8:15 AM MOTOR VEHICLE LICENCE EXAMINER 600 mg QUEtiapine tablet 50 mg (SEROquel) Given 12/31/2021 8:57 PM MOTOR VEHICLE LICENCE EXAMINER 50 mg 50 mg, oral, Daily at bedtime, First dose on Tue12/30/21 at 2100 Given 12/30/2021 9:55 PM MOTOR VEHICLE LICENCE EXAMINER 50 mg scopolamine base 1 mg Medication Applied 12/30/2021 12:02 PM 1 patch Behind Left Ear over 3 days 1 patch MOTOR VEHICLE LICENCE EXAMINER (TRANSDERM SCOP) 1 patch, transdermal, Administer over 72 Hours, Once as needed, nausea and vomiting, Starting on Tue12/30/21 at 1201, For 1 dose, Pre-Op, Contains 1.5 mg to deliver 1 mg/72 hours. sennosides-docusate sodium 8.6-50 mg per Given 01/01/2022 8:35 A M MOTOR VEHICLE LICENCE EXAMINER 1 tablet tablet 1 tablet (SENOKOT-S) 1 tablet, oral, 2 times daily, First dose on Tue12/30/21 at 2100, Do not give if patient has diarrhea. Given 12/31/2021 8:57 PM MOTOR VEHICLE LICENCE EXAMINER 1 tablet Given 12/31/2021 8:16 AM MOTOR VEHICLE LICENCE EXAMINER 1 tablet sodium chloride 0.9 % injection [...] injection 3 mL Given 12/31/2021 8:18 AM MOTOR VEHICLE LICENCE EXAMINER 3 mL 3 mL, intravenous, Every 12 hours scheduled, First dose on Tue12/30/21 at 2100, PACU & Post-Op, Peripheral Intravenous Catheter and Rapid Infusion Catheter, when no infusion to maintain patency Given 12/30/2021 9:53 PM MOTOR VEHICLE LICENCE EXAMINER 3 mL zonisamide capsule 300 mg (ZONEGRAN) Given 01/01/2022 8:35 AM MOTOR VEHICLE LICENCE EXAMINER 300 mg 300 mg, oral, 2 times daily, First dose on Tue12/30/21 at 2100, Swallow whole. Do NOT crush, chew or open capsule. Given 12/31/2021 8:57 PM MOTOR VEHICLE LICENCE EXAMINER 300 mg Given 12/31/2021 8:16 AM MOTOR VEHICLE LICENCE EXAMINER 300 mg documented in this encounter Active and Recently Administered Medications Times are shown in MOTOR VEHICLE LICENCE EXAMINER. Scheduled Medication Order 12/30/2021 12/31/2021 01/01/2022 acetaminophen tablet 1,000 mg (TYLENOL) (COMPLETED) 12 (Given - Provider: Manda Banrett RBrittonNBritton) 1,000 mg, oral, Once, On Tue12/30/21 [...] 1419 (Given - Provider: Emre Rodriguez APRN, INTERVENTION TEACHER) 2,000 mg (rounded from 1,747.5 mg = [...] dropping tourniquet zonisamide capsule 300 mg (ZONEGRAN) 3785 (Given - Pro vider: Ezequiel Hernandez, R.N.) [...] over 3 days 1 patch (TRANSDERM S DISPLAY SCREEN FABRICATOR) (CANCELED) 1202 (Medication Applied - Provider: Manda [...] as of this encounter Care Teams Machine Clipper Relationship Specialty Start Date End Date Elsewhere, Pcp PCP - General Family Medicine 12/25/21 documented as of this encounter
--- OUTSIDE RECORDS SUMMARY | 2022-08-08 23:02 | XMS_ITS | Encounter Summary ---
:1965 Author Organization [facility] Address [address] [place] [address] Care Team Providers Name Role Phone Unavailable Primary Care Provider Unavailable Reason for Visit Reason Comments Communication results Encounter Details Date Type Department Care Team Description 10/05/2021 Clinical Communication Department of [facility] Orthopedic Surgery Cyrus Souza M.D. (results) in [address] 200 [facility] [phone] Social History Tobacco Use Types Packs/Day Years [...] you attend cheondoism or Patient refused 2021 anabaptist services? Do [...] Cyrus Polk M.D. CT CT Job ID: [id number] AL OFFICE COORDINATOR documented in this encounter Miscellaneous Notes Telephone Encounter - Sosa Laughlin - 10/05/2021 3:17 PM CST Please list patient for 12/30/21. Thank you AL OFFICE COORDINATOR Telephone Encounter - Cyrus Polk M.D. - 10/05/2021 11:37 AM CST Dx: left infected shoulder arthroplasty Procedure: left resection shoulder arthroplasty [id number], NESHA, and see me Surgery date: December 30 Thank you AL OFFICE COORDINATOR Telephone Encounter - Radha Suh - 10/05/2021 11:18 AM CST Ms. Mosquera calls for results of labs, CT and aspiration results ( She is disappointment no one has reached out to her and that she had to call for these) Please call her with results to date AL OFFICE COORDINATOR documented in this encounter Plan of Treatment Not on filedocumented as of this encounter Visit Diagnoses Not on filedocumented in this encounter Additional Health Concerns Assessment Noted Time PHQ-9 Depression Total Score: 16 02/11/2021 12:00 AM C DT documented as of this encounter
--- OUTSIDE RECORDS SUMMARY | 2022-08-08 23:02 | XMS_ITS | Encounter Summary ---
:1965 Author Organization [facility] Address [address] [place] [address] Care Team Providers Name Role Phone Unavailable Primary Care Provider Unavailable Reason for Visit Reason Comments Nicotine Dependence Encounter Details Date Type Department Care Team Description 07/30/2021 Clinical Communication Department of [facility], Carolyn Mccarthy cotine Dependence Nicotine M.S., Dependence, C.T.T.S., [facility] in [address] [place] [phone] [place], [place] [phone] (Work) [phone] Social History Tobacco Use Types Packs/Day Years [...] you attend denominational or Patient refused 2021 mu-ism services? Do [...]
--- OUTSIDE RECORDS SUMMARY | 2022-08-08 23:02 | XMS_ITS | Encounter Summary ---
:1965 Author Organization [facility] Address [address] [place] [address] Care Team Providers Name Role Phone Unavailable Primary Care Provider Unavailable Reason for Visit Physical Therapy (Routine) - Closed Specialty Diagnoses / Procedures Referred By Contact Refer red To Contact Diagnoses Dissociation Scapholunate Left Dario Noel M.D. [facility] Procedures PT or OT eval and treat (first available) [address] [place] [phone] Referral ID Status Reason Start Date Expiration Date Visits Requ ested Visits Authorized [id number] Closed 06/08/2021 06/08/2022 99 99 Encounter Details Date Type Department Care Team Description 06/08/2021 Clinical Support Department of Physical German Noel M.D. [address] [place] [phone] Pain Wrist Left (Primary Dx); Medicine and Veena Quevedo M.S., C.H.T., O.T. [address] [place] [phone] Dissociation Scapholunate Left Rehabilitation in [place], [place] [address] [place] [phone] Social History Tobacco Use Types Packs/Day [...] you attend denominational or Patient refused 2021 mandaen services? Do [...] (HCC) ??? Nicotine Dependence Unspecified ??? Other Licensed Optician Current Drug Therapy Past Surgical History: Procedure [...] the following home instruction handouts: Splint Receipt [id number]. Active Hand Exercises (Six Pack) [id number]. Active Wrist Exercises [id number] Assessment Clinical Impression: The patient tolerated the [...]
--- OUTSIDE RECORDS SUMMARY | 2022-08-08 23:02 | XMS_ITS | Encounter Summary ---
:1965 Author Organization [facility] Address 200 [place] [address] Care Team Providers Name Role Phone Unavailable Primary Care Provider Unavailable Reason for Referral Outpatient (Routine) - Closed Specialty Diagnoses / Procedures Referred By Contact Refer red To Contact Diagnoses Painful Total Joint Arthroplasty Initial (HCC) Alfredo Herrera [place] Procedures US Major Joint Aspiration and or Injection Left O.P.A.-C. 200 [place] [phone] Referral ID Status Reason Start Date Expiration Date Visits Requ ested Visits Authorized [id number] Closed 09/07/2021 09/07/2022 1 1 Outpatient (Routine) - Closed Specialty Diagnoses / Procedures Referred By Contact Refer red To Contact Diagnoses Painful Total Joint Arthroplasty Initial (HCC) Alfredo Herrera [place] Procedures US Musculoskeletal Shoulder Left O.P.A.-C. 200 [place] [phone] Referral ID Status Reason Start Date Expiration Date Visits Requ ested Visits Authorized [id number] Closed 09/07/2021 09/07/2022 1 1 Reason for Visit Outpatient (Routine) - Closed Specialty Diagnoses / Procedures Referred By Contact Refer red To Contact Diagnoses Painful Total Joint Arthroplasty Initial (HCC) Alfredo Herrera [place] Procedures US Major Joint Aspiration and or Injection Left O.P.A.-C. [address] [place] [phone] Referral ID Status Reason Start Date Expiration Date Visits Requ ested Visits Authorized [id number] Closed 09/07/2021 09/07/2022 1 1 Encounter Details Date Type Department Care Team Description 09/25/2021 Hospital Encounter Department of Alfredo Herrera Total Joint Radiology, Lebron Gonzales.P.A.-CBritton Arthroplasty Initial Building, in [address] [place] [address] ([facility]) [facility] [phone] [place] [address] [place], [place] (Work) [phone] Social History Tobacco Use [...] you attend orthodox or Patient refused 2021 tenriism services? Do [...] 1 spray as needed. 5 mg THC polyethylene glycol Take 17 g by mouth [...] mouth 0 06/17/2022 mg tablet at bedtime. documented as of this encounter Plan of [...] Differential, Body Fluid (09/25/2021 1:48 PM CDT) [facility] Method Time Signature Fluid Type Left 09/25/2021 DHPM Shoulder 4:50 PM CDT Gross Slightly 09/25/2021 DHPM Appearance bloody 4:50 PM CDT Total 90566 /mcL 09/25/2021 DH[facility] Nucleated 4:50 PM CDT Cells Comment: ----REFERENCE VALUE---- Synovial: <150 /mcL Peritoneal: <500 /mcL Pleural: <500 /mcL Pericardial: <500 /mcL ----ADDITIONAL INFORMATION---- This test has been modified from the man ufacturer's instructions. Its performance characteri stics were determined by [facility] in a manner co nsistent [...] seen. Reviewed by: Tech 09/25/2021 7:38 PM [facility] CDT Specimen Anatomical Collection Method Collection Time Receive d Time (Source) Location / / Volume Laterality Fluid 09/25/2021 1:48 PM 3:27 CDT PM CDT Alfredo Kamara LAB BODY FLUIDS AND STOOLS O PATERABLES Performing Organization Address City/[facility] Phon e Number [facility] - [address] [place], [place] [address] [facility] [place] [address] [facility] [address] [facility] Acid Fast Smear For Mycobacterium (09/25/2021 1:48 PM CDT) [facility] Method Time Signature Acid Fast Smear Negative. 09/26/2021 DTL For Mycobacterium 2:58 PM CDT Specimen Anatomical Collection Method Collection Time Receive d Time (Source) Location / / Volume Laterality Synovial Fluid, 09/25/2021 1:48 PM 2020 3:42 Left Shoulder CDT PM CDT Comment: Specimen Source Site: Fluid Narrative [facility] - [facility] - 09/26/2021 2:58 PM CDT Fungal and Mycobacteria specimens plated for culture, volume inadequate for optimal recovery. Alfredo Kamara LAB MICROBIOLOGY - GENERAL O PATERASARAH Performing Organization Address City/[facility] Code Phon e Number [facility] - [address] [place], [place] [address] [facility] [place] [place] [address] Gram Stain (09/25/2021 1:48 PM CDT) [facility] Method Time Signature Gram Stain No [...] Organization Address City/State/ZIP Code Phon e Number [facility] - [address] [place], [place] [address] [facility] [place] [address] [facility] [place] [address] (ABNORMAL) Bacterial Culture, Aerobic + Susc (09/25/2021 1:48 PM CDT) Component Value Ref Test Analysis Performed At Path[facility] Method Time Signature Bacterial STAPHYLOCOCCUS EPIDERMIDIS 09/30/2021 DT L Culture, One Allen 2:35 PM CDT Aerobic + (A) Susc Comment: Semi-Urgent Result. Semi-Urgent This is a semi-urgent result [facility] - ([facility]) [facility] S Specimen Anatomical Collection Method Collection Time Receive d Time (Source) Location / / Volume Laterality Fluid (Synovial 09/25/2021 1:48 PM 2020 3:42 Fluid, Left CDT PM CDT Shoulder) Comment: Specimen Source Site: Fluid Narrative [facility] - 09/30/2021 2:35 PM CDT [...] - GENERAL O RDSONIA Performing Organization Address City/[facility] Phon e Number [facility] - 200 [place], [place] [address] [place], [place] [phone] [place] [address] Bacterial Culture, Anaerobic + Susc (09/25/2021 1:48 PM CDT) [facility] Method Time Signature Bacterial No growth 10/09/2021 DTL Culture, after 14 7:41 AM RADIO INTELLIGENCE OPERATOR Anaerobic + days of Susc incubation. Specimen Anatomical Collection Method Collection Time Receive d Time (Source) Location / / Volume Laterality Fluid (Synovial 09/25/2021 1:48 PM 2020 3:42 Fluid, Left CDT PM CDT Shoulder) Comment: Specimen Source Site: Fluid Narrative [facility] - 10/09/2021 7:41 AM RADIO INTELLIGENCE OPERATOR Fungal and Mycobacteria specimens plated for culture, volume inadequate for optimal recovery. Alfredo Kamara LAB MICROBIOLOGY - GENERAL O MARY Performing Organization Address [facility] Phon e Number [facility] - [address] (ABNORMAL) Broad Range Bacteria PCR+Sequencing (09/25/2021 1:48 PM CDT) Component Value Ref Test Analysis Performed At [facility] Method Time Signature Broad Range This test was developed and its performance characteri stics 10/06/2021 DTL Bacteria determined by [facility] in a manner consistent with 1:24 PM RADIO INTELLIGENCE OPERATOR PCR+Sequencin CLIA requirements. This test has not been cleared or g approved by the U.S. Food and Drug Administration. (A) Broad Range STAPHYLOCOCCUS EPIDERMIDIS 10/06/2021 DTL Bacteria DNA detected 1:24 PM RADIO INTELLIGENCE OPERATOR PCR+Sequencin (A) g Comment: Semi-Urgent Result. Semi-Urgent This is a semi-urgent result [facility] - () [facility] Specimen Anatomical Collection Method Collection Time Receive d Time (Source) Location / / Volume Laterality Fluid (Synovial 09/25/2021 1:48 PM 2020 3:42 Fluid, Left CDT PM CDT Shoulder) Comment: Specimen Source Site: Fluid Narrative [facility] - 10/06/2021 1:24 PM RADIO INTELLIGENCE OPERATOR Fungal and Mycobacteria specimens plated for culture, volume inadequate for optimal recovery. Alfredo Kamara LAB MICROBIOLOGY - GENERAL O RDBRADLEYBLES Performing Organization Address [facility] Phon e Number [facility] - [address] [place] [phone] Crystal Identification, Synovial Fluid (09/25/2021 1:48 PM CDT) Analysis Performed At [facility] Time Signature Crystal ID, None seen None seen 09/25/2021 [facility] Synovial Fl 4:56 PM CDT Reviewed by: Tech 09/25/2021 [facility] 4:56 PM CDT Specimen Anatomical Collection Method Collection Time Receive d Time (Source) Location / / Volume Laterality Fluid (Synovial 09/25/2021 1:48 PM 2020 3:27 Fluid, Left CDT PM CDT Shoulder) Alfredo Kamara LAB BODY FLUIDS AND STOOLS O RDERABLES Performing Organization Address City/[facility] Code Phon e Number [facility] - 200 [place], [place] [address] Fungal Culture, Routine (09/25/2021 1:48 PM CDT) [facility] Method Time Signature Fungal No growth 10/20/2021 [facility] Culture, after 24 1:01 AM RADIO INTELLIGENCE OPERATOR Routine days of incubation. Specimen Anatomical Collection Method Collection Time Receive d Time (Source) Location / / Volume Laterality Fluid (Synovial 09/25/2021 1:48 PM 2020 3:42 Fluid, Left CDT PM CDT Shoulder) Comment: Specimen Source Site: Fluid Narrative [facility] - 10/20/2021 1:01 AM RADIO INTELLIGENCE OPERATOR Fungal and Mycobacteria specimens plated for culture, volume inadequate for optimal recovery. Alfredo Foote. LAB MICROBIOLOGY - GENERAL O RDERABLES Performing Organization Address [facility] Phon e Number [facility] - [address] Mycobacterial Culture (09/25/2021 1:48 PM CDT) [facility] gist Method Time Signature Mycobacterial No growth 11/07/2021 DTL Culture after 42 1:03 AM RADIO INTELLIGENCE OPERATOR days of incubation . Specimen Anatomical Collection Method Collection Time Receive d Time (Source) Location / / Volume Laterality Fluid (Synovial 09/25/2021 1:48 PM 2020 3:42 Fluid, Left CDT PM CDT Shoulder) Comment: Specimen Source Site: Fluid Narrative [facility] - 11/07/2021 1:03 AM RADIO INTELLIGENCE OPERATOR Fungal and Mycobacteria specimens plated for culture, volume inadequate for optimal recovery. Alfredo Kamara LAB MICROBIOLOGY - GENERAL O MARY Performing Organization Address [facility] Phon e Number [facility] - [id number] [place] [address] documented in this encounter Visit Diagnoses Diagnosis [...]
--- OUTSIDE RECORDS SUMMARY | 2022-08-08 23:02 | XMS_ITS | Encounter Summary ---
:1965 Author Organization [facility] Address [address] [place] [address] Care Team Providers Name Role Phone Unavailable Primary Care Provider Unavailable Encounter Details Date Type Department Care Team Description 09/23/2021 Hospital Encounter Department of Alfredo Herrera Total Joint Laboratory Medicine A, O.PEmilioCBritton Arthroplasty Initial and Pathology, [address] [place] [address] ([facility]) [facility] in [facility] [address] [place] [phone] 200 [facility] (Work) [place], [place] [phone] (Fax) [phone] Social History Tobacco Use Types Packs/Day Years [...] (ABNORMAL) Sedimentation Rate (09/23/2021 9:07 AM CDT) [facility] Method Time Signature Sedimentation 31 (H) 2 - 22 09/23/2021 DTL Rate, B mm/h 10:46 AM CDT Specimen Anatomical Collection Method Collection Time Receive d Time (Source) Location / / Volume Laterality Blood (Blood, 09/23/2021 9:07 AM 09/23/20 9:30 Venous) CDT AM CDT Alfredo Kamara LAB BLOOD ADD-ON Performing Organization Address City/[facility] Code Phon e Number [facility] - 200 [place], [place] [address] [place] [address] [place] [address] CRP (C-Reactive Protein) (09/23/2021 9:07 AM CDT) P athologist Signature C-Reactive <3.0 <=8.0 mg/L 09/23/2021 DTL Protein (CRP), 10:30 AM CDT S Specimen Anatomical Collection Method Collection Time Receive d Time (Source) Location / / Volume Laterality Blood (Blood, 09/23/2021 9:07 AM 09/23/20 9:57 Venous) CDT AM CDT Alfredo Kamara LAB BLOOD ADD-ON Performing Organization Address City/[facility] Code Phon e Number [facility] - 200 [place], [place] [address] [facility] [place] [address] Laboratories-[address] (ABNORMAL) CBC with Differential, Blood (09/23/2021 9:07 AM CDT) [facility] Method Time Signature Hemoglobin 10.1 (L) [...] [facility] - [address] [place], [place] [address] [facility] [place] [address] Laboratories-[facility] [address] documented in this encounter Visit Diagnoses Diagnosis Painful Total Joint Arthroplasty Initial (HCC) documented in this encounter Additional Health Concerns Assessment Noted Time PHQ-9 Depression Total Score: 16 02/11/2021 12:00 AM C DT documented as of this encounter
--- OUTSIDE RECORDS SUMMARY | 2022-08-08 23:02 | XMS_ITS | Encounter Summary ---
:1965 Author Organization [facility] Address [address] [place] [address] Care Team Providers Name Role Phone Unavailable Primary Care Provider Unavailable Reason for Visit Reason Comments Pain Appointment Request (Routine) - Closed Specialty Diagnoses / Procedures Referred By Contact Refer red To Contact Orthopedic Surgery Diagnoses Arthroplasty Total Shoulder Replacement Status Post Left David Cohn M.D. [address] [facility] [address] [place] [address] Referral ID Status Reason Start Date Expiration Date Visits Requ ested Visits Authorized [id number] Closed 09/04/2021 09/04/2022 1 1 Encounter Details Date Type Department Care Team Description 09/23/2021 Comprehensive Visit Department of Cyrus Polk Pain Shoulder Left Orthopedic Surgery Lilian Souza (Primary Dx) in [address] [place] [address] [place], [place] [phone] (Work) [phone] Social History Tobacco Use Types Packs/Day Years [...] you attend temple or Patient refused 2021 adventism services? Do you belong to any clubs or No 05/17/2022 organizations such as temple groups, unions, fraLovli or athletic groups, or school groups? How [...]
--- OUTSIDE RECORDS SUMMARY | 2022-08-08 23:02 | XMS_ITS | Encounter Summary ---
:1965 Author Organization [facility] Address [address] [place] [address] Care Team Providers Name Role Phone Unavailable Primary Care Provider Unavailable Reason for Referral MRI/CAT/PET Scan (Routine) - Authorized Specialty Diagnoses / Procedures Referred By Contact Refer red To Contact Radiology Diagnoses Stroke Cerebrovascular Accident Personal History Occlusion Vertebral Artery With lnfarction (HCC) Robert Diehl M.D. [facility] Procedures MR Neck Angiogram without and with IV Contrast [address] [place] [address] Referral ID Status Reason Start Date Expiration Date Visits V isits Requested Authorized [id number] Authorized 12/10/2021 12/10/2022 1 1 O RECORDER MECHANIC Outpatient (Routine) - Authorized Specialty Diagnoses / Procedures Referred By Contact Refer red To Contact Diagnoses Aneurysm Cerebral Unruptured (HCC) Robert Diehl M.D. [facility] Procedures PM Device interrogation (clinic) [address] [place] [address] Referral ID Status Reason Start Date Expiration Date Visits V isits Requested Authorized [id number] Authorized 12/10/2021 12/10/2022 1 1 O RECORDER MECHANIC MRI/CAT/PET Scan (Routine) - Authorized Specialty Diagnoses / Procedures Referred By Contact Refer red To Contact Radiology Diagnoses Aneurysm Cerebral Unruptured (HCC) Robert Diehl M.D. [facility] Procedures MR Brain Angiogram without IV Contrast [address] [place] [address] Referral ID Status Reason Start Date Expiration Date Visits V isits Requested Authorized [id number] Authorized 12/10/2021 12/10/2022 1 1 O RECORDER MECHANIC Reason for Visit Reason Comments Michel Encounter Details Date Type Department Care Team Description 12/10/2021 Clinical Communication Department of Robert Diehl W[facility] in [place], [place] [address] [facility] [address] [place] [phone] Social History Tobacco Use Types Packs/Day Years [...] you attend protestant or Patient refused 2021 buddhist services? Do [...] 2:58 PM CST Signed and thank you. O RECORDER MECHANIC documented in this encounter Plan of Treatment Scheduled Orders Name Type Priority Associated Diagnoses Order S chedule MR Brain Angiogram Imaging RAD - Routine Aneurysm Cerebral Exp ected: without IV Contrast (most inpatients Unruptured ([facility]) 05/03/2022, and all Expires: outpatients) 03/10/2023 PM Device Procedures Routine Aneurysm Cerebral Expected: interrogation Unruptured ([facility]) 12/29/2021 , (clinic) Expires: 03/10/2023 MR Neck Angiogram Imaging RAD - Routine Stroke Cerebrovascular Expected: without and with IV (most inpatients Accident Personal 05/03/2022 Contrast and all History (Approximate), outpatients) Occlusion Vertebral Expires: Artery With lnfarction 03/10 ([facility]) documented as of this encounter Visit Diagnoses Diagnosis Stroke Cerebrovascular Accident Personal History - Primary Aneurysm Cerebral Unruptured ([facility]) Occlusion Vertebral Artery With lnfarcti on ([facility]) documented in this encounter Additional Health Concerns Assessment Noted Time PHQ-9 Depression Total Score: 16 02/11/2021 12:00 AM C DT documented as of this encounter
--- OUTSIDE RECORDS SUMMARY | 2022-08-08 23:02 | XMS_ITS | Encounter Summary ---
:1965 Author Organization [facility] Address [address] [place] [address] Care Team Providers Name Role Phone Unavailable Primary Care Provider Unavailable Reason for Referral MRI/CAT/PET Scan (Routine) - Closed Specialty Diagnoses / Procedures Referred By Contact Refer red To Contact Radiology Diagnoses Painful Total Joint Arthroplasty Initial ([facility]) Alfredo Herrera [facility] Procedures CT Shoulder Left without IV Contrast O.P.A.-C. [address] [place] [phone] Referral ID Status Reason Start Date Expiration Date Visits Requ ested Visits Authorized [id number] Closed 09/07/2021 09/07/2022 1 1 Reason for Visit MRI/CAT/PET Scan (Routine) - Closed Specialty Diagnoses / Procedures Referred By Contact Refer red To Contact Radiology Diagnoses Painful Total Joint Arthroplasty Initial ([facility]) Alfredo Herrera [facility] Procedures CT Shoulder Left without IV Contrast O.P.A.-C. [address] [place] [phone] Referral ID Status Reason Start Date Expiration Date Visits Requ ested Visits Authorized [id number] Closed 09/07/2021 09/07/2022 1 1 Encounter Details Date Type Department Care Team Description 09/25/2021 Hospital Encounter Department of Alfredo Herrera Painful Total Joint Radiology, Emily HillAOmar Arthroplasty Initial Building, in [address] [place] [address] ([facility]) [facility] [address] [facility] [phone] [place], [place] (Work) [phone] [phone] Social History Tobacco Use Types Packs/Day Years [...] you attend baptist or Patient refused 2021 catholic services? Do [...]
--- OUTSIDE RECORDS SUMMARY | 2022-08-08 23:02 | XMS_ITS | Encounter Summary ---
:1965 Author Organization [facility] Address [address] [place] [address] Care Team Providers Name Role Phone Unavailable Primary Care Provider Unavailable Encounter Details Date Type Department Care Team Description 11/25/2021 Clinical Communication Department of Guillermo Patterson, Neurologic Surgery in [place], [place] [address] [place] [address] [address] [place] [phone] Social History Tobacco Use Types Packs/Day Years [...] you attend mandaen or Patient refused 2021 latter-day services? Do [...] be seen through ED, or local provider/neurology. TER HELPER documented in this encounter Plan of Treatment Not on filedocumented as of this encounter Visit Diagnoses Not on filedocumented in this encounter Additional Health Concerns Assessment Noted Time PHQ-9 Depression Total Score: 16 02/11/2021 12:00 AM C DT documented as of this encounter
--- OUTSIDE RECORDS SUMMARY | 2022-08-08 23:02 | XMS_ITS | Encounter Summary ---
:1965 Author Organization [facility] Address [address] [place] [address] Care Team Providers Name Role Phone Unavailable Primary Care Provider Unavailable Reason for Visit Outpatient (Routine) - Closed Specialty Diagnoses / Procedures Referred By Contact Refer red To Contact Neurology Robert Diehl M. D. [facility] [address] [place] [phone] Referral ID Status Reason Start Date Expiration Date Visits Requ ested Visits Authorized [id number] Closed 09/15/2020 09/15/2021 1 1 Encounter Details Date Type Department Care Team Description 11/18/2021 Virtual Visit Department of Robert Diehl Stroke Cere brovascular Neurology jimmy Celaya M.D. Accident Personal [place], [place] [address] [place] [address] History (Primary Dx) [address] [place] [phone] [phone] Social History Tobacco Use Types Packs/Day Years [...] you attend mormon or Patient refused 2021 evangelical services? Do [...] 19 pandemic patient not seen in a ybaz-ix-uaev manner. This is a 56-year-old woman with [...] by: Robert Diehl M.D. 11/18/21 11:46 AM ENVIRONMENTAL STUDIES FACULTY MEMBER Diagnosis Plan 1. Stroke Cerebrovascular Accident Personal History RONMENTAL STUDIES FACULTY MEMBER documented in this encounter Plan of Treatment Not on filedocumented as of this encounter Visit Diagnoses Diagnosis Stroke Cerebrovascular Accident Personal History - Primary documented in this encounter Additional Health Concerns Assessment Noted Time PHQ-9 Depression Total Score: 16 02/11/2021 12:00 AM C DT documented as of this encounter
--- OUTSIDE RECORDS SUMMARY | 2022-08-08 23:02 | XMS_ITS | Encounter Summary ---
:1965 Author Organization [facility] Address [address] [place] [address] Care Team Providers Name Role Phone Unavailable Primary Care Provider Unavailable Reason for Visit MRI/CAT/PET Scan (Routine) - Canceled Specialty Diagnoses / Procedures Referred By Contact Refer red To Contact Radiology Diagnoses Aneurysm Cerebral Unruptured (HCC) Robert Diehl M.D. [facility] Procedures MR Brain Angiogram without IV Contrast [address] [place] [phone] Referral ID Status Reason Start Date Expiration Date Visits V isits Requested Authorized [id number] Canceled 09/15/2020 09/15/2021 1 1 Encounter Details Date Type Department Care Team Description 09/18/2021 Hospital Encounter Department of Robert Diehl ed (Patient: Radiology, Severiano Celaya M.D. Request) [facility], [address] [place], [place] [address] [place] [address] [place], [place] [phone] (Work) [phone] Social History Tobacco Use Types Packs/Day Years [...] you attend jewish or Patient refused 2021 episcopalian services? Do you belong to any clubs or No 05/17/2022 organizations such as jewish groups, unions, fraSuperior Services or athletic groups, or school groups? [...]
--- OUTSIDE RECORDS SUMMARY | 2022-08-08 23:02 | XMS_ITS | Encounter Summary ---
:1965 Author Organization [facility] Address [address] [place] [address] Care Team Providers Name Role Phone Unavailable Primary Care Provider Unavailable Reason for Visit Reason Comments Nicotine Dependence Encounter Details Date Type Department Care Team Description 07/24/2021 Clinical Communication Department of [facility], Carolyn Mccarthy cotine Dependence Nicotine M.S., Dependence, C.T.T.S., [facility] in [address] [place] [address] [place], [place] [phone] (Work) [phone] Social History Tobacco Use Types Packs/Day Years [...] you attend baptist or Patient refused 2021 alevism services? Do [...]
--- OUTSIDE RECORDS SUMMARY | 2022-08-08 23:02 | XMS_ITS | Encounter Summary ---
:1965 Author Organization [facility] Address [address] [place] [address] Care Team Providers Name Role Phone Unavailable Primary Care Provider Unavailable Reason for Visit Reason Comments Nicotine Dependence Encounter Details Date Type Department Care Team Description 07/16/2021 Clinical Communication Department of [facility], Carolyn Mccarthy cotine Dependence Nicotine M.S., Dependence, C.T.T.S., [facility] in [address] [place] [address] [place], [place] [phone] (Work) [phone] Social History Tobacco Use Types Packs/Day Years [...]
--- OUTSIDE RECORDS SUMMARY | 2022-08-08 23:02 | XMS_ITS | Encounter Summary ---
:1965 Author Organization [facility] Address [address] [place] [address] Care Team Providers Name Role Phone Unavailable Primary Care Provider Unavailable Reason for Visit Reason Comments Michel Encounter Details Date Type Department Care Team Description 11/25/2021 Clinical Communication Department of Chani Benjamin Neurologic Surgery in [place], [place], [place] Ph.D. 12[address] [facility] [[email or web address] 200 [place] [address] [phone] Social History Tobacco Use Types Packs/Day Years [...] you attend tenriism or Patient refused 2021 jain services? Do [...] for your help. Boris Neurosurgery Appointment Office [phone] Please respond to the RST YEYO SCHEDULING Pool Thank You TRAINER documented in this encounter Plan of Treatment Not on filedocumented as of this encounter Visit Diagnoses Not on filedocumented in this encounter Additional Health Concerns Assessment Noted Time PHQ-9 Depression Total Score: 16 02/11/2021 12:00 AM C DT documented as of this encounter
--- OUTSIDE RECORDS SUMMARY | 2022-08-08 23:02 | XMS_ITS | Encounter Summary ---
:1965 Author Organization [facility] Address [address] [place] [address] Care Team Providers Name Role Phone Unavailable Primary Care Provider Unavailable Reason for Referral Outpatient (Routine) - Closed Specialty Diagnoses / Procedures Referred By Contact Refer red To Contact Anesthesiology Diagnoses Preoperative Exam Painful Total Joint Arthroplasty Initial (HCC) [facility] Akbar-Araceli [address] [place] [phone] Referral ID Status Reason Start Date Expiration Date Visits Requ ested Visits Authorized [id number] Closed 10/13/2021 10/13/2022 1 1 ICATION TRAINER Outpatient (Routine) - Closed Specialty Diagnoses / Procedures Referred By Contact Refer red To Contact Orthopedic Surgery Diagnoses Preoperative Exam Painful Total Joint Arthroplasty Initial ([facility]) Alfredo Herrera Rochest [facility] Lebron.Fernando-CBritton 200 [place] [address] Referral ID Status Reason Start Date Expiration Date Visits Requ ested Visits Authorized [id number] Closed 10/13/2021 10/13/2022 1 1 ICATION TRAINER Reason for Visit Reason Comments pre op orders L verena Encounter Details Date Type Department Care Team Description 10/12/2021 Clinical Communication Department of Jam pre op orders ([facility] Lilian Alex) in [place] [address] [address] [place], [place] 200 [facility] [address] [place], [place] [phone] (Work) [phone] Social History Tobacco Use Types Packs/Day Years [...] you attend anglican or Patient refused 2021 confucianist services? Do [...] and see me Surgery date: December 30 ICATION TRAINER documented in this encounter Plan of Treatment Scheduled Referrals Name Type Priority Associated Diagnoses Order S [facility] Orthopedic Surgery Outpatient Referral Routine Preoperat lalo Exam Expected: Pre Op (clinic) Painful Total Joint 12/29 Arthroplasty Initial (Approx imate), (HCC) Expires: 10/12/2024 Preoperative Outpatient Referral Routine Preoperative Exam Expected: Evaluation NESHA Painful Total Joint 2021 consult (clinic) Arthroplasty Initial (Ap proximate), (HCC) Expires: 10/12/2024 documented as of this encounter Results (ABNORMAL) Basic Metabolic Panel (12/29/2021 11:34 AM APPLICATION TRAINER) P athologist Signature Potassium, S 4.7 3.6 - 5.2 12/29/2021 DTL mmol/L 12:38 PM APPLICATION TRAINER Sodium, S 143 135 - 145 12/29/2021 DTL mmol/L 12:38 PM APPLICATION TRAINER Chloride, S 108 (H) 98 - 107 12/29/2021 DTL mmol/L 12:38 PM APPLICATION TRAINER Bicarbonate, S 24 22 - 29 12/29/2021 DTL mmol/L 12:38 PM APPLICATION TRAINER Anion Gap 11 7 - 15 12/29/2021 DTL 12:38 PM APPLICATION TRAINER BUN (Blood Urea 15 6 - 21 12/29/2021 DTL Nitrogen), S mg/dL 12:38 PM APPLICATION TRAINER Creatinine 0.83 0.59 - 12/29/2021 DTL 1.04 mg/dL 12:38 PM APPLICATION TRAINER eGFR-Non 78 >=60 12/29/2021 DTL Black/ mL/min/BSA 12:38 PM APPLICATION TRAINER Bulgarian Comment: ----ADDITIONAL INFORMATION---- Estimated GFR calculated using the 2009 CKD_EPI creatinine equation. eGFR-Black/ 90 >=60 mL/min/BSA 2021 12:38 PM APPLICATION TRAINER DTL Comment: ----ADDITIONAL INFORMATION---- Estimated GFR calculated using the 2009 CKD_EPI creatinine equation. Calcium, Total, S 9.1 8.6 - 10.0 mg/dL 12/29/2021 12:3 8 PM APPLICATION TRAINER DTL Glucose, S 90 70 - 140 mg/dL 12/29/2021 12:38 PM APPLICATION TRAINER DTL Specimen Anatomical Collection Method Collection Time Receive d Time (Source) Location / / Volume Laterality Blood (Blood, 12/29/2021 11:34 12/29/2021 Venous) AM APPLICATION TRAINER 12:13 PM APPLICATION TRAINER Alfredo Kamara LAB BLOOD ADD-ON Performing Organization Address City/[facility] Phon e Number [facility] - [address] [place] [address] Laboratories-[address] Type and Screen (with reflex Antibody ID) (12/29/2021 11:34 AM APPLICATION TRAINER) [facility] [employer] Method Time Signature ABORh A Neg Not applicable 12/29/2021 ETRM 12:59 PM APPLICATION TRAINER Antibody CANCELED 12/29/2021 ETRM Screen 12:59 PM APPLICATION TRAINER Comment: Result canceled by the ancerick y. Type & Screen Expiration 02/26/2022 23:59 12/29/19 22 12:59 PM APPLICATION TRAINER ETRM Testing Location [place] DEFAULT 12/29/2021 11:58 AM APPLICATION TRAINER ETRM Specimen Anatomical Collection Method Collection Time Receive d Time (Source) Location / / Volume Laterality Blood (Blood, 12/29/2021 11:34 12/29/2021 Venous) AM APPLICATION TRAINER 11:58 AM APPLICATION TRAINER Alfredo SchmidtCBritton LAB BLOOD BANK TEST ORDERABL ES Performing Organization Address City/[facility] Phon e Number [facility] - [address] ETRM [address] (ABNORMAL) CBC with Differential, Blood (12/29/2021 11:34 AM APPLICATION TRAINER) [facility] [employer] Method Time Signature Hemoglobin 11.2 (L) 11.6 - 12/29/2021 DTL 15.0 g/dL 12:02 PM APPLICATION TRAINER Hematocrit 34.1 (L) 35.5 - 12/29/2021 DTL 44.9 % 12:02 PM APPLICATION TRAINER Erythrocytes 4.04 3.92 - 12/29/2021 DTL 5.13 12:02 PM APPLICATION TRAINER x10(12)/L MCV 84.4 78.2 - 12/29/2021 DTL 97.9 fL 12:02 PM APPLICATION TRAINER RBC Distrib Width 20.2 (H) 12.2 - 12/29/2021 DTL 16.1 % 12:02 PM APPLICATION TRAINER Platelet Count 324 157 - 371 12/29/2021 DTL x10(9)/L 12:02 PM APPLICATION TRAINER Leukocytes 5.1 3.4 - 9.6 12/29/2021 DTL x10(9)/L 12:02 PM APPLICATION TRAINER Neutrophils 3.08 1.56 - 12/29/2021 DTL 6.45 12:02 PM APPLICATION TRAINER x10(9)/L Lymphocytes 1.39 0.95 - 12/29/2021 DTL 3.07 12:02 PM APPLICATION TRAINER x10(9)/L Monocytes 0.43 0.26 - 12/29/2021 DTL 0.81 12:02 PM APPLICATION TRAINER x10(9)/L Eosinophils 0.17 0.03 - 12/29/2021 DTL 0.48 12:02 PM APPLICATION TRAINER x10(9)/L Basophils 0.05 0.01 - 12/29/2021 DTL 0.08 12:02 PM APPLICATION TRAINER x10(9)/L Specimen Anatomical Collection Method Collection Time Receive d Time (Source) Location / / Volume Laterality Blood (Blood, 12/29/2021 11:34 12/29/2021 Venous) AM APPLICATION TRAINER 11:54 AM APPLICATION TRAINER Alfredo Kamara LAB BLOOD ADD-ON Performing Organization Address City/State/ZIP Code Phon e Number [facility] - [address] [place], [place] [address] [facility] [place] [address] Laboratories-[facility] [address] SARS Coronavirus 2, Molecular Detection, PCR, Varies Asymptomatic (12/29/2021 11:11 AM APPLICATION TRAINER) [facility] Method Time Signature COVID-19, Swab, 12/29/2021 DTL PCR, Source Nasopharynx 4:19 PM APPLICATION TRAINER COVID-19, Undetected Undetected 12/29/2021 DTL PCR, Result 4:19 PM APPLICATION TRAINER Comment: SARS-CoV-2 RNA absent. This result does not rule out COVID-19 in the patient, as the sensitivity of the test depends o n the timing of the specimen collection and quality of the specimen. Result should be correlated with patient's history and clinical presentat ion. ----ADDITIONAL INFORMATION---- This RT-PCR test using the Yub SARS-Co V-2 Assay ( Tacatì.) performed on the Yub Two Module System has received Emergency Use Authorization (EUA) by the U.S. Food and Drug Administration, and is modified from the warehouse shipping receiving clerk's instructions with a bridging study. Performance characteristics were verifie d by [facility] in a manner consistent with CLIA requirements. Visit the CDC website: https://www.cdc.g ov/coronavirus/ for the most recent guidelines on [facility] virus testing. Fact Sheet for Healthcare Providers: https://www.fda.gov/media/165309/downloa d Fact Sheet for Patients: https://www.fda.gov/media/392188/downloa d Specimen Anatomical Collection Method Collection Time Receive d Time (Source) Location / / Volume Laterality Varies 12/29/2021 11:11 12/29/2021 (Nasopharynx) AM APPLICATION TRAINER 12:03 PM APPLICATION TRAINER Alfredo Kamara LAB MICROBIOLOGY - GENERAL O RDERABLES Performing Organization Address City/State/ZIP Code Phon e Number [facility] - 200 [place], [place] [address] [facility] [place] [address] Laboratories-[facility] [address] DX Shoulder Left 2+ Views (12/29/2021 10:30 AM APPLICATION TRAINER) Anatomical Region Laterality Modality Upper Extremity, Shoulder, Musculoskeletal RST LOS, Left Digital Radiography Musculoskeletal ARZ LOS, Muskuloskeletal FLA LOS Specimen (Source) Anatomical Collection Method Collection Time Re ceived Time Location / / Volume Laterality 12/29/2021 10:53 AM APPLICATION TRAINER Impressions 12/29/2021 10:57 AM APPLICATION TRAINER Demineralization. Left shoulder arthroplasty revision to a reverse TSA. Developing lucency about the glenoi d component screws when compared back to 11/13/20, compatible with loosening. Pre sumed distal clavicle resection. Incompletely imaged instrumented spinal fusion from the upper cervical spine to the upper thoracic spine. Spinal cord st imulator. At least one old healed left posterior rib fracture. Narrative 12/29/2021 10:57 AM APPLICATION TRAINER EXAM: ??DX SHOULDER LEFT 2+ VIEWS Procedure [...] one old healed left posterior rib fracture. Alfreod [facility] EMBER GARDINER documented in this encounter Visit Diagnoses Diagnosis Preoperative Exam - Primary Painful Total Joint Arthroplasty Initial (HCC) Preoperative Exam Painful Total Joint Arthroplasty Initial (HCC) documented in this encounter Additional Health Concerns Assessment Noted Time PHQ-9 Depression Total Score: 16 02/11/2021 12:00 AM C DT documented as of this encounter
--- OUTSIDE RECORDS SUMMARY | 2022-08-08 23:02 | XMS_ITS | Encounter Summary ---
:1965 Author Organization [facility] Address 200 [place] [address] Care Team Providers Name Role Phone Unavailable Primary Care Provider Unavailable Reason for Referral Outpatient (Routine) - Closed Specialty Diagnoses / Procedures Referred By Contact Refer red To Contact Diagnoses Painful Total Joint Arthroplasty Initial (HCC) Alfredo Herrera Rochest er Region Procedures US Major Joint Aspiration and or Injection Left O.P.A.-C. 200 [place] [address] Referral ID Status Reason Start Date Expiration Date Visits Requ ested Visits Authorized [id number] Closed 09/07/2021 09/07/2022 1 1 Outpatient (Routine) - Closed Specialty Diagnoses / Procedures Referred By Contact Refer red To Contact Diagnoses Painful Total Joint Arthroplasty Initial (HCC) Alfredo Herrera Rochest er Region Procedures US Musculoskeletal Shoulder Left O.P.A.-C. 200 [place] [address] Referral ID Status Reason Start Date Expiration Date Visits Requ ested Visits Authorized [id number] Closed 09/07/2021 09/07/2022 1 1 MRI/CAT/PET Scan (Routine) - Closed Specialty Diagnoses / Procedures Referred By Contact Refer red To Contact Radiology Diagnoses Painful Total Joint Arthroplasty Initial (HCC) Alfredo Herrera Rochest er Region Procedures CT Shoulder Left without IV Contrast O.P.A.-C. [address] [place] [address] Referral ID Status Reason Start Date Expiration Date Visits Requ ested Visits Authorized [id number] Closed 09/07/2021 09/07/2022 1 1 Reason for Visit Reason Comments Pre-visit Testing Orders L shldr - prev. TSA Encounter Details Date Type Department Care Team Description 09/07/2021 Clinical Communication Department of Jam, Pre- visit Testing Orthopedic Surgery Cyrus Souza M.D. Orders (L shldr - in [address] prev[address] TSA) [place], [place] [address] [place] [phone] [place], [place] [phone] (Work) [phone] Social History Tobacco Use Types Packs/Day Years [...] you attend taoism or Patient refused 2021 yazdanism services? Do [...] PROCEDURES Mycobacterial Culture (09/25/2021 1:48 PM CDT) [facility] Method Time Signature Mycobacterial No growth 11/07/2021 DTL Culture after 42 1:03 AM SEED EXPERT days of incubation . Specimen Anatomical Collection Method Collection Time Receive d Time (Source) Location / / Volume Laterality Fluid (Synovial 09/25/2021 1:48 PM 2020 3:42 Fluid, Left CDT PM CDT Shoulder) Comment: Specimen Source Site: Fluid Narrative [facility] - [facility] - 11/07/2021 1:03 AM SEED EXPERT Fungal and Mycobacteria specimens plated for culture, volume inadequate for optimal recovery. Alfredo Kamara LAB MICROBIOLOGY - GENERAL O RDERABLES Performing Organization Address City/State/ZIP Code Phon e Number [facility] - [address] [place], [place] [address] [facility] [place] [address] Laboratories-[facility] [address] Fungal Culture, Routine (09/25/2021 1:48 PM CDT) [facility] Method Time Signature Fungal No growth 10/20/2021 DTL Culture, after 24 1:01 AM SEED EXPERT Routine days of incubation. Specimen Anatomical Collection Method Collection Time Receive d Time (Source) Location / / Volume Laterality Fluid (Synovial 09/25/2021 1:48 PM 2020 3:42 Fluid, Left CDT PM CDT Shoulder) Comment: Specimen Source Site: Fluid Narrative [facility] - [facility] - 10/20/2021 1:01 AM SEED EXPERT Fungal and Mycobacteria specimens plated for culture, volume inadequate for optimal recovery. Alfredo Kamara LAB MICROBIOLOGY - GENERAL O RDERABLES Performing Organization Address [facility] Phon e Number [facility] - 200 [place], [place] [address] [facility] [place] [address] Formerly [facility]-[address] Crystal Identification, Synovial Fluid (09/25/2021 1:48 PM CDT) [facility] Signature Crystal ID, None seen None seen 09/25/2021 [facility] Synovial Fl 4:56 PM CDT Reviewed by: Tech 09/25/2021 [facility] 4:56 PM CDT Specimen Anatomical Collection Method Collection Time Receive d Time (Source) Location / / Volume Laterality Fluid (Synovial 09/25/2021 1:48 PM 2020 3:27 Fluid, Left CDT PM CDT Shoulder) Alfredo Kamara LAB BODY FLUIDS AND STOOLS O RDERABLES Performing Organization Address City/[facility] Phon e Number [facility] - 200 [place], [place] [address] [place] [address] (ABNORMAL) Broad Range Bacteria PCR+Sequencing (09/25/2021 1:48 PM CDT) Component Value Ref Test Analysis Performed At [facility] gist Range Method Time Signature Broad Range This test was developed and its performance characteri stics 10/06/2021 DTL Bacteria determined by [facility] in a manner consistent with 1:24 PM SEED EXPERT PCR+Sequencin CLIA requirements. This test has not been cleared or g approved by the U.S. Food and Drug Administration. (A) Broad Range STAPHYLOCOCCUS EPIDERMIDIS 10/06/2021 DTL Bacteria DNA detected 1:24 PM SEED EXPERT PCR+Sequencin (A) g Comment: Semi-Urgent Result. Semi-Urgent This is a semi-urgent result [facility] - () [facility] Specimen Anatomical Collection Method Collection Time Receive d Time (Source) Location / / Volume Laterality Fluid (Synovial 09/25/2021 1:48 PM 2020 3:42 Fluid, Left CDT PM CDT Shoulder) Comment: Specimen Source Site: Fluid Narrative [facility] - 10/06/2021 1:24 PM SEED EXPERT Fungal and Mycobacteria specimens plated for culture, volume inadequate for optimal recovery. Alfredo Kamara LAB MICROBIOLOGY - GENERAL O MARY Performing Organization Address [facility] Phon e Number [facility] - [address] Bacterial Culture, Anaerobic + Susc (09/25/2021 1:48 PM CDT) [facility] Method Time Signature Bacterial No growth 10/09/2021 DTL Culture, after 14 7:41 AM SEED EXPERT Anaerobic + days of Susc incubation. Specimen Anatomical Collection Method Collection Time Receive d Time (Source) Location / / Volume Laterality Fluid (Synovial 09/25/2021 1:48 PM 2020 3:42 Fluid, Left CDT PM CDT Shoulder) Comment: Specimen Source Site: Fluid Narrative [facility] - 10/09/2021 7:41 AM SEED EXPERT Fungal and Mycobacteria specimens plated for culture, volume inadequate for optimal recovery. Alfredo Kamara LAB MICROBIOLOGY - GENERAL O MARY Performing Organization Address City/[facility] Phon e Number [facility] - [address] (ABNORMAL) Bacterial Culture, Aerobic + Susc (09/25/2021 1:48 PM CDT) Component Value Ref Test Analysis Performed At [facility] Range Method Time Signature Bacterial STAPHYLOCOCCUS EPIDERMIDIS 09/30/2021 DT L Culture, One [place] 2:35 PM CDT Aerobic + (A) Susc Comment: Semi-Urgent Result. Semi-Urgent This is a semi-urgent result [facility] () [facility] Specimen Anatomical Collection Method Collection Time Receive d Time (Source) Location / / Volume Laterality Fluid (Synovial 09/25/2021 1:48 PM 2020 3:42 Fluid, Left CDT PM CDT Shoulder) Comment: Specimen Source Site: Fluid Narrative [facility] - [facility] - 09/30/2021 2:35 PM CDT Fungal [...] Susceptible Staphylococcus Daptomycin SUSCEPTIBILITY, BP 1 mcg/mL: Adnyell ceptible epidermidis (MCG/ML) Alfredo Kamara LAB MICROBIOLOGY - GENERAL O RDERABLES Performing Organization Address City/State/ZIP Code Phon e Number [facility] - [address] [place], [place] [address] [place] [address] Laboratories-[facility] [address] Gram Stain [...] Code Phon e Number [facility] - [address] [place], [place] [address] [facility] [place] [address] Laboratories-[facility] [address] [...] oid component appears slightly increased since 08/26/2021. Tluio ot exclude developing loosening or infection. Alfredo Kamara IMG DIAGNOSTIC IMAGING PROCE DURES (ABNORMAL) Sedimentation Rate (09/23/2021 9:07 AM CDT) [facility] gist Method Time Signature Sedimentation 31 (H) 2 - 22 09/23/2021 DTL Rate, B mm/h 10:46 AM CDT Specimen Anatomical Collection Method Collection Time Receive d Time (Source) Location / / Volume Laterality Blood (Blood, 09/23/2021 9:07 AM 09/23/20 21 9:30 Venous) CDT AM CDT Alfredo Kamara LAB BLOOD ADD-ON Performing Organization Address [facility] Phon e Number [facility] - 200 [place], [place] [address] [facility] [place] [address] CRP (C-Reactive Protein) (09/23/2021 9:07 AM CDT) P athologist Signature C-Reactive <3.0 <=8.0 mg/L 09/23/2021 DTL Protein (CRP), 10:30 AM CDT S Specimen Anatomical Collection Method Collection Time Receive d Time (Source) Location / / Volume Laterality Blood (Blood, 09/23/2021 9:07 AM 09/23/20 21 9:57 Venous) CDT AM CDT Alfredo Kamara LAB BLOOD ADD-ON Performing Organization Address [facility] Phon e Number [facility] - [address] [place], [place] [id number] [place] [address] (ABNORMAL) CBC with Differential, Blood (09/23/2021 9:07 [...] Code Phon e Number [facility] - [address] [place], [place] [address] [facility] [place] [address] Laboratories-[facility] [address] documented in [...]
--- OUTSIDE RECORDS SUMMARY | 2022-08-08 23:02 | XMS_ITS | Encounter Summary ---
:1965 Author Organization [facility] Address [address] [place] [address] Care Team Providers Name Role Phone Unavailable Primary Care Provider Unavailable Encounter Details Date Type Department Care Team Description 09/23/2021 Hospital Encounter Department of Alfredo Herrera Total Joint Radiology, Anh Gonzales Arthroplasty Initial Building, in [address] [place] [address] ([facility]) [facility] [phone] [place] [address] [place], [place] (Work) [phone] Social History Tobacco Use Types Packs/Day Years [...] you attend adventism or Patient refused 2021 yazidi services? Do [...]
--- OUTSIDE RECORDS SUMMARY | 2022-08-08 23:02 | XMS_ITS | Encounter Summary ---
:1965 Author Organization [facility] Address [address] [place] [address] Care Team Providers Name Role Phone Elsewhere, Pcp Primary Care Provider Unavailable Reason for Visit Reason Comments Pre-op Exam Outpatient (Routine) - Closed Specialty Diagnoses / Procedures Referred By Contact Refer red To Contact Orthopedic Surgery Diagnoses Preoperative Exam Painful Total Joint Arthroplasty Initial (HCC) Alfredo Herrera Rochest [facility] O.P.A.-CBritton [address] [place] [phone] Referral ID Status Reason Start Date Expiration Date Visits Requ ested Visits Authorized [id number] Closed 10/13/2021 10/13/2022 1 1 Encounter Details Date Type Department Care Team Description 12/29/2021 Office Visit Department of Cyrus Polk Shoulde r Left (Primary Dx); Orthopedic Surgery in Lilian Souza Preoperative Exam; [place], [place] [address] [place] [address] Painful Total Joint Arthroplasty Initial ([facility]) [address] [place] [phone] Social History Tobacco Use Types Packs/Day Years [...] you attend anabaptism or Patient refused 2021 jehovah's witness services? [...] involve the use of a medical technologist blood bank made by a company [employer] I or one of my partners have collaborated to design, develop, or improve orthopedic implants, instruments, or products. Both the [facility] and the individual surgeons involved receive royalty payments from the use of those specific devices at other institutions, but no royalties or any other payments are paid for the use of those devices with any [facility] patient. The clinical rationale for the use of those devices as well as the availability and applicability of alternative devices was reviewed. He understands that the final decision for the use of a specific medical technologist blood bank often is made at the time of surgery. All of his questions were answered; he understands and agrees with my approach to device selection and wants to proceed. Y MIXER documented in this encounter Plan of Treatment Not on filedocumented as of this encounter Visit Diagnoses Diagnosis Pain Shoulder Left - Primary Preoperative Exam Painful Total Joint Arthroplasty Initial (HCC) documented in this encounter Additional Health Concerns Infection Onset Date Last Indicated Resolved Time COVID19 Pending 12/29/2021 12/29/2021 12/29/2021 4:20 PM SPRAY MIXER Assessment Noted Time PHQ-9 Depression Total Score: 16 02/11/2021 12:00 AM C DT documented as of this encounter Care Teams Car Usher Relationship Specialty Start Date End Date Elsewhere, Pcp PCP - General Family Medicine 12/25/21 documented as of this encounter
--- OUTSIDE RECORDS SUMMARY | 2022-08-08 23:02 | XMS_ITS | Encounter Summary ---
:1965 Author Organization [facility] Address [address] [place] [address] Care Team Providers Name Role Phone Unavailable Primary Care Provider Unavailable Encounter Details Date Type Department Care Team Description 10/13/2021 Clinical Communication Preoperative [facility] in [facility], [facility] [place], [place] [address] [facility] [address] [place] [phone] Social History Tobacco Use Types Packs/Day Years [...] you attend restoration or Patient refused 2021 restorationist services? Do [...] Umu Gan R.R.T. - 10/13/2021 11:09 AM RN CRITICAL CARE Surgical Risk Score: 3 Risk Identifiers: 4+ ??? TIA ??? PFO ??? Hx of Arterial Thrombosis ??? Asthma CRITICAL CARE documented in this encounter Plan of Treatment Not on filedocumented as of this encounter Visit Diagnoses Not on filedocumented in this encounter Additional Health Concerns Assessment Noted Time PHQ-9 Depression Total Score: 16 02/11/2021 12:00 AM C DT documented as of this encounter
--- OUTSIDE RECORDS SUMMARY | 2022-08-08 23:03 | XMS_ITS | Encounter Summary ---
:1965 Author Organization [facility] Address [address] [place] [address] Care Team Providers Name Role Phone Unavailable Primary Care Provider Unavailable Reason for Referral Outpatient (Routine) - Closed Specialty Diagnoses / Procedures Referred By Contact Refer red To Contact Diagnoses Pain Wrist Left Michael Noble Jr., [facility] Procedures PM Device interrogation (clinic) P.A.-C. [address] [place] [address] [phone] Referral ID Status Reason Start Date Expiration Date Visits Requ ested Visits Authorized [id number] Closed 03/17/2021 03/17/2022 1 1 RI/CAT/PET Scan (Routine) - Closed Specialty Diagnoses / Procedures Referred By Contact Refer red To Contact Radiology Diagnoses Pain Wrist Left Michael Noble Jr., [facility] Procedures MR Wrist Left without IV Contrast P.A.-C. 200 [place], [place] [address] Referral ID Status Reason Start Date Expiration Date Visits Requ ested Visits Authorized [id number] Closed 03/17/2021 03/17/2022 1 1 Encounter Details Date Type Department Care Team Description 03/17/2021 Orders Only Department of Michael Noble Wris t Left Orthopedic Surgery in Tona Patel Jr. (Primary Dx) [place], [place] [address] [place] [phone] [phone] Social History Tobacco Use Types Packs/Day Years [...] you attend christianity or Patient refused 2021 anglican services? Do [...]
--- OUTSIDE RECORDS SUMMARY | 2022-08-08 23:03 | XMS_ITS | Encounter Summary ---
:1965 Author Organization [facility] Address [address] [place] [address] Care Team Providers Name Role Phone Unavailable Primary Care Provider Unavailable Reason for Visit Reason Comments Post Hospital Follow-up Encounter Details Date Type Department Care Team Description 02/19/2021 Clinical Communication Department of [facility], Post Hospital Neurology in Monica Alvarado R.N. Follow-up [place], [place] [address] [place] [address] Social History Tobacco Use Types [...] you attend worship or Patient refused 2021 mandaen services? Do [...] reports she has not yet picked up [id number] ASA daily and 80 mg Atorvastatin at [...]
--- OUTSIDE RECORDS SUMMARY | 2022-08-08 23:03 | XMS_ITS | Encounter Summary ---
:1965 Author Organization [facility] Address [address] [place] [address] Care Team Providers Name Role Phone Unavailable Primary Care Provider Unavailable Reason for Referral Outpatient (Routine) - Closed Specialty Diagnoses / Procedures Referred By Contact Refer red To Contact Orthopedic Surgery Michael Noble [facility] , P.A.-C. [address] [place] [phone] Referral ID Status Reason Start Date Expiration Date Visits Requ ested Visits Authorized [id number] Closed 05/04/2021 05/04/2022 1 1 Scheduling Instructions Pulos Encounter Details Date Type Department Care Team Description 05/04/2021 Orders Only Department of Orthopedic Mirna Noble Surgery in [facility] , P.A.- C. [address] [place] [phone] (Wo rk) Social History Tobacco Use Types [...] you attend scientologist or Patient refused 2021 oriental orthodox services? Do you belong to any clubs or No 05/17/2022 organizations such as scientologist groups, unions, fraFlextrip or athletic groups, or school groups? How [...]
--- OUTSIDE RECORDS SUMMARY | 2022-08-08 23:03 | XMS_ITS | Encounter Summary ---
:1965 Author Organization [facility] Address [address] [place] [address] Care Team Providers Name Role Phone Unavailable Primary Care Provider Unavailable Reason for Visit Reason Comments Pre-visit Intake Encounter Details Date Type Department Care Team Description 04/15/2021 Clinical Communication Department of Robert Diehl e-visit Intake Neurology in Lilian Celaya [place], [facility] [place], [place] [address] [place] [phone] [place], [place] [phone] (Work) [phone] Social History Tobacco Use Types Packs/Day Years [...] you attend hinduism or Patient refused 2021 uatsdin services? Do [...]
--- OUTSIDE RECORDS SUMMARY | 2022-08-08 23:03 | XMS_ITS | Encounter Summary ---
:1965 Author Organization [facility] Address [address] [place] [address] Care Team Providers Name Role Phone Unavailable Primary Care Provider Unavailable Reason for Visit Reason Comments Follow-up [facility] Patient Encounter Details Date Type Department Care Team Description 02/25/2021 Clinical Communication [facility] Neurology jimmy Celaya M.D. Patient) [place], [facility] [place] [address] [place], [place] [address] [place] [phone] [place], [place] [phone] (Work) [phone] Social History Tobacco Use Types Packs/Day Years [...] you attend mormon or Patient refused 2021 restoration services? Do [...] so I advised she report to the [facility] as soon as possible to be [...]
--- OUTSIDE RECORDS SUMMARY | 2022-08-08 23:03 | XMS_ITS | Encounter Summary ---
:1965 Author Organization [facility] Address [address] [place] [address] Care Team Providers Name Role Phone Unavailable Primary Care Provider Unavailable Encounter Details Date Type Department Care Team Description 03/11/2021 Clinical Communication Department of Ana Segura Orthopedic Surgery in [place], [place] [address] [place] [phone] Social History Tobacco Use Types Packs/Day Years [...] you attend jain or Patient refused 2021 jainism services? Do [...] Patient would like to be seen in [place]. Referral line to [place] provided to angela batista. Patient aware she will call for apptointment. Telephone Encounter - Jerica Gee L.P.N. - 03/13/2021 9:09 AM CDT Left message to call clinic back. Needs to see a hand surgeon. Telephone Encounter - Christal Abraham L.P.N. - 03/12/2021 3:21 PM CDT Left message for patient to call back. She can contact [place] [place], [place], or sarath frye if she choses. Telephone Encounter - Clemente Schofield M.D. - 03/12/2021 11:23 AM CDT She should see a hand surgeon Telephone Encounter - Esperanza Stratton - 03/11/2021 9:33 AM CDT Reason for Communication: Patient is calling in stating that she is being referred to be seen for a brake in her LEFT hand. Patient is stating that [facility] is requesting for patient to be seen by our orthopedic department. Patient is wanting to be seen in [place]. Unable to find any encounters regarding a [...]
--- OUTSIDE RECORDS SUMMARY | 2022-08-08 23:03 | XMS_ITS | Encounter Summary ---
:1965 Author Organization [facility] Address [address] [place] [address] Care Team Providers Name Role Phone Unavailable Primary Care Provider Unavailable Reason for Visit Reason Comments pain medication Encounter Details Date Type Department Care Team Description 06/04/2021 Clinical Communication Department of Pullaz[place], Dario willard medication Orthopedic Surgery Lilian Alejo in [place], [facility] [place], [place] [address] [place] [phone] [place], [place] [phone] (Work) [phone] Social History Tobacco Use Types Packs/Day Years [...] you attend adventism or Patient refused 2021 caodaism services? Do [...] meds/scripts. Patient would like a call - [phone] documented in this encounter Plan of Treatment Not on filedocumented as of this encounter Visit Diagnoses Not on filedocumented in this encounter Additional Health Concerns Assessment Noted Time PHQ-9 Depression Total Score: 16 02/11/2021 12:00 AM C DT documented as of this encounter
--- OUTSIDE RECORDS SUMMARY | 2022-08-08 23:03 | XMS_ITS | Encounter Summary ---
:1965 Author Organization [facility] Address [address] [place] [address] Care Team Providers Name Role Phone Unavailable Primary Care Provider Unavailable Reason for Visit Reason Comments Pre-visit Intake Encounter Details Date Type Department Care Team Description 03/11/2021 Clinical Communication Department of Sourav Pre- visit Intake Neurologic Surgery Lilian Jang, in [place], Ph.D. [place] [address] [place] [phone] Social History Tobacco Use Types Packs/Day Years [...] you attend spiritism or Patient refused 2021 rastafarian services? Do [...]
--- OUTSIDE RECORDS SUMMARY | 2022-08-08 23:03 | XMS_ITS | Encounter Summary ---
:1965 Author Organization [facility] Address [address] [place] [address] Care Team Providers Name Role Phone Unavailable Primary Care Provider Unavailable Reason for Visit Reason Comments Communication Encounter Details Date Type Department Care Team Description 02/19/2021 Clinical Communication Department of Rossy Benjamin Neurologic Surgery in [place], [place] Ph.D. [address] [place] [address] 200 [place] [address] [phone] Social History Tobacco Use Types Packs/Day Years [...] you attend sabianism or Patient refused 2021 gnosticism services? Do [...]
--- OUTSIDE RECORDS SUMMARY | 2022-08-08 23:03 | XMS_ITS | Encounter Summary ---
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 [facility] Procedures CT Head Neck Angiogram with IV Contrast 200 [place], [place] [phone] Referral ID Status Reason Start Date Expiration Date Visits Requ ested Visits Authorized [id number] Closed 02/17/2021 02/17/2022 1 1 Encounter Details Date Type Department Care Team Description 03/12/2021 Hospital Encounter Department of Jeannette Cote ebral Infarction Radiology, Severiano Souza M.D. Due To Embolism Building, in 200 [facility] ([place], [place]) Vertebral [place], [place] Artery (HCC) [place] [address] [phone] [place], [place] (Work) [phone] [phone] Social History Tobacco Use Types Packs/Day Years [...] you attend faith or Patient refused 2021 voodoo services? Do [...] ane urysms. 3. 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 Otherwise [place] is intact. 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 Otherwise [place] is intact. Dolichoectasia of [...] ane urysms. 3. 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 Jeannette NIELSON CT [...]
--- OUTSIDE RECORDS SUMMARY | 2022-08-08 23:03 | XMS_ITS | Encounter Summary ---
:1965 Author Organization [facility] Address [address] [place] [address] Care Team Providers Name Role Phone Unavailable Primary Care Provider Unavailable Reason for Visit Reason Comments Pre-scheduling Questionnaire Hand Pre-Scheduling Qu estionnaire Encounter Details Date Type Department Care Team Description 03/16/2021 Clinical Department of Prescheduling, Pre-scheduli ng Communication Orthopedic Surgery Provider Question elizabeth ( in [place], Hand Pre-Sched uling [place] Questionnaire) [address] [place] [phone] Social History Tobacco Use Types Packs/Day Years [...] you attend mormonism or Patient refused 2021 bahai services? Do [...]
--- OUTSIDE RECORDS SUMMARY | 2022-08-08 23:03 | XMS_ITS | Encounter Summary ---
:1965 Author Organization [facility] Address [address] [place] [address] Care Team Providers Name Role Phone Unavailable Primary Care Provider Unavailable Reason for Referral Outpatient (Routine) - Closed Specialty Diagnoses / Procedures Referred By Contact Refer red To Contact Diagnoses Dissociation Scapholunate Left Michael Downs M.D. [facility] Procedures ORS Cast Room Visit [address] [place] [address] Referral ID Status Reason Start Date Expiration Date Visits Requ ested Visits Authorized [id number] Closed 03/24/2021 03/24/2022 1 1 Outpatient (Routine) - Closed Specialty Diagnoses / Procedures Referred By Contact Refer red To Contact Diagnoses Dissociation Scapholunate Left Michael Downs M.D. [facility] Procedures ORS Cast Room Visit [address] [place] [address] Referral ID Status Reason Start Date Expiration Date Visits Requ ested Visits Authorized [id number] Closed 03/24/2021 03/24/2022 1 1 Reason for Visit Reason Comments Pain Appointment Request (Routine) - Closed Specialty Diagnoses / Procedures Referred By Contact Refer red To Contact Orthopedic Surgery Diagnoses Fracture Wrist Hand Closed Initial Referral ID Status Reason Start Date Expiration Date Visits Requ ested Visits Authorized [id number] Closed 03/16/2021 03/16/2022 1 1 Encounter Details Date Type Department Care Team Description 03/24/2021 Admin Visit Department of Dario Noel Dissocia tion Orthopedic Surgery in M.D. Scapholunate Left [place], [place] 200 [facility] (Primary Dx) [address] [place] [address] [phone] Social History Tobacco Use Types Packs/Day Years [...] you attend sikhism or Patient refused 2021 rastafari services? Do [...] 70/60 degrees on the contr alateral side. ??Self Storage Manager strength of 10 kg compared to 23 [...] cast was applied by the kevin garcia tax map technician - The patient is nonweightbearing bearin [...]
--- OUTSIDE RECORDS SUMMARY | 2022-08-08 23:03 | XMS_ITS | Encounter Summary ---
:1965 Author Organization [facility] Address [address] [place] [address] Care Team Providers Name Role Phone Unavailable Primary Care Provider Unavailable Reason for Visit Outpatient (Routine) - Closed Specialty Diagnoses / Procedures Referred By Contact Refer red To Contact Neurological Surgery Jeannette Cote [place] M.D. [address] [place] [phone] Referral ID Status Reason Start Date Expiration Date Visits Requ ested Visits Authorized [id number] Closed 02/17/2021 02/17/2022 1 1 Encounter Details Date Type Department Care Team Description 03/12/2021 Office Visit Department of Gonzalez Benjamin Neurologic Surgery in Lilian Jang, Cinthya castorena ([facility]) (Primary [place], [place] Ph.D. Dx) [address] [place] [address] [place] [phone] Social History Tobacco Use Types Packs/Day [...] you attend jain or Patient refused 2021 orthodoxy services? Do you belong to any clubs or No 05/17/2022 organizations such as jain groups, unions, fraWazoo Sports or athletic groups, or school groups? How [...]
--- OUTSIDE RECORDS SUMMARY | 2022-08-08 23:03 | XMS_ITS | Encounter Summary ---
:1965 Author Organization [facility] Address [address] [place] [address] Care Team Providers Name Role Phone Unavailable Primary Care Provider Unavailable Reason for Visit Reason Comments Med Refill Encounter Details Date Type Department Care Team Description 06/04/2021 Refill Department of Orthopedic Pulos, Dario Alejo M.D. Med Refill Surgery in [address] [phone] [place] [address] [place] [address] [phone] Social History Tobacco Use Types Packs/Day Years [...]
--- OUTSIDE RECORDS SUMMARY | 2022-08-08 23:03 | XMS_ITS | Encounter Summary ---
:1965 Author Organization [facility] Address [address] [place] [address] Care Team Providers Name Role Phone Unavailable Primary Care Provider Unavailable Reason for Referral Outpatient (Routine) - Closed Specialty Diagnoses / Procedures Referred By Contact Refer red To Contact Diagnoses Dissociation Scapholunate Left Michael Downs M.D. [facility] Procedures ORS Cast Room Visit [address] [place] [phone] Referral ID Status Reason Start Date Expiration Date Visits Requ ested Visits Authorized [id number] Closed 03/24/2021 03/24/2022 1 1 Reason for Visit Reason Comments Follow-up Outpatient (Routine) - Closed Specialty Diagnoses / Procedures Referred By Contact Refer red To Contact Diagnoses Dissociation Scapholunate Left Michael Downs M.D. [facility] Procedures ORS Cast Room Visit [address] [place] [phone] Referral ID Status Reason Start Date Expiration Date Visits Requ ested Visits Authorized [id number] Closed 03/24/2021 03/24/2022 1 1 Encounter Details Date Type Department Care Team Description 03/24/2021 Hospital Encounter Department of Paul Downs M.D. [address] [place] [phone] Dissociation Orthopedic Surgery Dario Noel M.D. [address] [place] [phone] Scapkimiunate Left in [place], [place] [address] [place] [address] Social History Tobacco Use Types Packs/Day Years [...] you attend tenriism or Patient refused 2021 voodoo services? Do [...] at bedtime. documented as of this encounter Procedure Notes Michael Downs M.D. - 03/24/2021 10:00 AM CDTAssociated Order(s): ORS CAST ROOM VISIT HAND SURGERY CASTROOM NOTE DIAGNOSIS: 1. Left S-L dissociation PROCEDURE: 1. Left upper extremity cast application SUBJECTIVE: Anige Mosquera is a 55 y.o. female who [...] with 70/60 degrees on the contralateral side. Rocket Scientist strength of 10 kg compared to 23 [...] short-arm cast was applied by the castroom clock repair technician - The patient is nonweightbearing bearing [...] 70/60 degrees on the contr alateral side. ??Rocket Scientist strength of 10 kg compared to 23 [...] ??The clenched fist view was obtained of [employer] hands, but unfortunately is difficult to assess [...] cast was applied by the kevin garcia clock repair technician - The patient is nonweightbearing bearin [...]
--- OUTSIDE RECORDS SUMMARY | 2022-08-08 23:03 | XMS_ITS | Encounter Summary ---
:1965 Author Organization [facility] Address 200 [place] [address] Care Team Providers Name Role Phone Unavailable Primary Care Provider Unavailable Reason for Referral Outpatient (Routine) - Closed Specialty Diagnoses / Procedures Referred By Contact Refer red To Contact Neurological Surgery Jeannette [place]ote [place] [facility] Lilian 200 [place] [address] Referral ID Status Reason Start Date Expiration Date Visits Requ ested Visits Authorized [id number] Closed 02/17/2021 02/17/2022 1 1 Scheduling Instructions Please schedule with Chief A Neurosurger y Service (Dr. Suhail Benjamin). 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 [facility] Procedures CT Head Neck Angiogram with IV Contrast 200 [place] [address] Referral ID Status Reason Start Date Expiration Date Visits Requ ested Visits Authorized [id number] Closed 02/17/2021 02/17/2022 1 1 Encounter Details Date Type Department Care Team Description 02/17/2021 Orders Only Department of Jeannette Cote Cerebral Infarction Neurologic Surgery jimmy Souza M.D. Due To Embolism Right [place], [place] [address] [facility] Vertebral Artery (HCC) [address] [place], [place] (Primary Dx) [place] [address] [phone] Social History Tobacco Use Types Packs/Day Years [...] you attend rastafarian or Patient refused 2021 hinduism services? Do [...] Neuroradiology ARZ LOS, Neuroradiology T omography [facility] Specimen (Source) Anatomical Collection Method [...] ane urysms. 3. 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 Otherwise [place] is intact. Dolichoectasia of [...] 2 mm left supraclinoid aneurysm (557). Otherwise [place] is intact. Dolichoectasia of [...] ane urysms. 3. 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 Jeannette NIELSON CT [...]
--- OUTSIDE RECORDS SUMMARY | 2022-08-08 23:03 | XMS_ITS | Encounter Summary ---
:1965 Author Organization [facility] Address [address] [place] [address] Care Team Providers Name Role Phone Unavailable Primary Care Provider Unavailable Reason for Visit Reason Comments Vertigo and vision problems [facility] Encounter Details Date Type Department Care Team Description 02/18/2021 Clinical Communication Department of Fazal, Robert mendosa and vision Neurology in Lilian Celaya problems ([facility]) [place], [facility] [address] [place], [place] [address] [place] [address] [place], [place] [phone] (Work) [phone] Social History Tobacco Use Types Packs/Day Years [...] you attend confucianist or Patient refused 2021 bahai services? Do [...]
--- OUTSIDE RECORDS SUMMARY | 2022-08-08 23:03 | XMS_ITS | Encounter Summary ---
:1965 Author Organization [facility] Address [address] [place] [address] Care Team Providers Name Role Phone Unavailable Primary Care Provider Unavailable Reason for Referral Outpatient (Routine) - Closed Specialty Diagnoses / Procedures Referred By Contact Refer red To Contact Orthopedic Surgery Dario Noel M .D. [facility] 200 [place] [address] Referral ID Status Reason Start Date Expiration Date Visits Requ ested Visits Authorized [id number] Closed 06/08/2021 06/08/2022 1 1 Physical Therapy (Routine) - Closed Specialty Diagnoses / Procedures Referred By Contact Refer red To Contact Diagnoses Dissociation Scapholunate Left Dario Noel M.D. [facility] Procedures PT or OT eval and treat (first available) [address] [place] [address] [phone] Referral ID Status Reason Start Date Expiration Date Visits Requ ested Visits Authorized [id number] Closed 06/08/2021 06/08/2022 99 99 Outpatient (Routine) - Closed Specialty Diagnoses / Procedures Referred By Contact Refer red To Contact Diagnoses Dissociation Scapholunate Left Michael Downs M.D. [facility] Procedures ORS Cast Room Visit [address] [place] [phone] Referral ID Status Reason Start Date Expiration Date Visits Requ ested Visits Authorized [id number] Closed 05/08/2021 05/08/2022 1 1 Reason for Visit Reason Comments Cast Check Follow-up Outpatient (Routine) - Closed Specialty Diagnoses / Procedures Referred By Contact Refer red To Contact Diagnoses Dissociation Scapholunate Left Michael Downs M.D. [facility] Procedures ORS Cast Room Visit [address] [place] [address] [phone] Referral ID Status Reason Start Date Expiration Date Visits Requ ested Visits Authorized [id number] Closed 05/08/2021 05/08/2022 1 1 Encounter Details Date Type Department Care Team Description 06/08/2021 Hospital Encounter Department of Paul Downs M.D. [address] [place] [address] [phone] Dissociation Orthopedic Surgery Dario Noel M.D. [address] [place] [phone] Scapholunate Left in [place], [place] [address] [place] [phone] Social History Tobacco Use Types Packs/Day Years [...] you attend mandaen or Patient refused 2021 yarsanism services? Do [...] capsule Take 75 mg by mouth 0 03/2 12/2020 02/26/2022 at bedtime. cholecalciferol (VITAMIN Take 125 mcg [...]
--- OUTSIDE RECORDS SUMMARY | 2022-08-08 23:03 | XMS_ITS | Encounter Summary ---
:1965 Author Organization [facility] Address [address] [place] [address] Care Team Providers Name Role Phone Unavailable Primary Care Provider Unavailable Reason for Referral MRI/CAT/PET Scan (Routine) - Closed Specialty Diagnoses / Procedures Referred By Contact Refer red To Contact Radiology Diagnoses Pain Wrist Left Michael Noble Jr., [facility] Procedures MR Wrist Left without IV Contrast P.A.-C. [address] [place] [address] [phone] Referral ID Status Reason Start Date Expiration Date Visits Requ ested Visits Authorized [id number] Closed 03/17/2021 03/17/2022 1 1 Reason for Visit MRI/CAT/PET Scan (Routine) - Closed Specialty Diagnoses / Procedures Referred By Contact Refer red To Contact Radiology Diagnoses Pain Wrist Left Michael Noble Jr., [facility] Procedures MR Wrist Left without IV Contrast P.A.-C. [address] [place] [address] [phone] Referral ID Status Reason Start Date Expiration Date Visits Requ ested Visits Authorized [id number] Closed 03/17/2021 03/17/2022 1 1 Encounter Details Date Type Department Care Team Description 03/24/2021 Hospital Encounter Department of Michael Noble Wrist Left Radiology, Hema Perez Jr.ABritton-CBritton [facility], in [address] [place] [address] [place], [place] [phone] [place], [place] [phone] (Work) [phone] Social History Tobacco Use Types Packs/Day Years [...] you attend rastafari or Patient refused 2021 latter-day services? Do [...]
--- OUTSIDE RECORDS SUMMARY | 2022-08-08 23:03 | XMS_ITS | Encounter Summary ---
:1965 Author Organization [facility] Address [address] [place] [address] Care Team Providers Name Role Phone Unavailable Primary Care Provider Unavailable Encounter Details Date Type Department Care Team Description 05/04/2021 Clinical Communication Department of Dario Noel , Orthopedic Surgery in [place], [place] [address] [place] [address] 200 [place] [phone] Social History Tobacco Use Types Packs/Day Years [...] you attend rastafari or Patient refused 2021 islam services? Do [...]
--- OUTSIDE RECORDS SUMMARY | 2022-08-08 23:03 | XMS_ITS | Encounter Summary ---
:1965 Author Organization [facility] Address [address] [place] [address] Care Team Providers Name Role Phone Unavailable Primary Care Provider Unavailable Reason for Referral Outpatient (Routine) - Closed Specialty Diagnoses / Procedures Referred By Contact Refer red To Contact Diagnoses Dissociation Scapholunate Left Michael Downs M.D. [facility] Procedures ORS Cast Room Visit [address] [place] [phone] Referral ID Status Reason Start Date Expiration Date Visits Requ ested Visits Authorized [id number] Closed 05/08/2021 05/08/2022 1 1 Reason for Visit Reason Comments Follow-up Outpatient (Routine) - Closed Specialty Diagnoses / Procedures Referred By Contact Refer red To Contact Diagnoses Dissociation Scapholunate Left Michael Downs M.D. [facility] Procedures ORS Cast Room Visit [address] [place] [phone] Referral ID Status Reason Start Date Expiration Date Visits Requ ested Visits Authorized [id number] Closed 05/08/2021 05/08/2022 1 1 Encounter Details Date Type Department Care Team Description 05/08/2021 Hospital Encounter Department of Paul Downs M.D. [address] [place] [address] [phone] Dissociation Orthopedic Surgery Dario Noel M.D. [address] [place] [phone] Scapkimiunate Left in [place], [place] [address] [place] [address] Social History Tobacco Use Types Packs/Day Years [...] you attend druze or Patient refused 2021 bahai services? Do [...] short-arm cast was applied by the castroom technician biological health - The patient is nonweightbearing bearing on [...]
--- OUTSIDE RECORDS SUMMARY | 2022-08-08 23:03 | XMS_ITS | Encounter Summary ---
:1965 Author Organization [facility] Address [address] [place] [address] Care Team Providers Name Role Phone Unavailable Primary Care Provider Unavailable Reason for Visit Reason Comments Nicotine Dependence Encounter Details Date Type Department Care Team Description 03/10/2021 Clinical Communication Department of [facility], Carolyn Mccarthy cotine Dependence Nicotine M.S., Dependence, C.T.T.S., [facility] in [address] [place] [phone] [place], [place] [phone] (Work) [phone] Social History Tobacco Use Types Packs/Day Years [...] you attend alevism or Patient refused 2021 episcopalian services? Do [...]
--- OUTSIDE RECORDS SUMMARY | 2022-08-08 23:04 | XMS_ITS | Encounter Summary ---
:1965 Author Organization [facility] Address [address] [place] [address] Care Team Providers Name Role Phone Unavailable Primary Care Provider Unavailable Encounter Details Date Type Department Care Team Description 02/03/2021 Orders Only Department of Neurology Leonides Kumar S troke ([facility]) (Primary in [facility] Lilian Dx) 200 [facility] 200 [place] [phone] Social History Tobacco Use Types Packs/Day Years [...] you attend christian or Patient refused 2021 anglican services? Do [...]
--- OUTSIDE RECORDS SUMMARY | 2022-08-08 23:04 | XMS_ITS | Encounter Summary ---
:1965 Author Organization [facility] Address [address] [place] [address] Care Team Providers Name Role Phone Unavailable Primary Care Provider Unavailable Encounter Details Date Type Department Care Team Description 02/11/2021 Ancillary Procedure Department of Radiology [place] in [facility] raúl Quintana 200 [facility] 200 [place] [phone] (Wo rk) Social History Tobacco Use Types [...] you attend hinduism or Patient refused 2021 zoroastrianism services? Do [...] bilateral thalami (series 3 image 36), bilateral KNIFE MACHINE OPERATOR regio n (left greater than right, [...] bilateral thalami (series 3 image 36), bilateral KNIFE MACHINE OPERATOR regio n (left greater than right, [...] bilateral thalami (series 3 image 36), bilateral KNIFE MACHINE OPERATOR regio n (left greater than right, [...] bilateral thalami (series 3 image 36), bilateral KNIFE MACHINE OPERATOR regio n (left greater than right, [...] bilateral thalami (series 3 image 36), bilateral KNIFE MACHINE OPERATOR regio n (left greater than right, [...] bilateral thalami (series 3 image 36), bilateral KNIFE MACHINE OPERATOR regio n (left greater than right, [...]
--- OUTSIDE RECORDS SUMMARY | 2022-08-08 23:04 | XMS_ITS | Encounter Summary ---
:1965 Author Organization [facility] Address [address] [place] [address] Care Team Providers Name Role Phone Unavailable Primary Care Provider Unavailable Encounter Details Date Type Department Care Team Description 02/16/2021 Anesthesia Event Department of Radiology Liban Sunshine APRN, BATHING SUIT MAKER, DNAP [address] [place] [phone] [facility] Deep Velasquez M.D. [address] [place] [phone] [place] [phone] Anesthesia Record Procedure Summary Procedure Name Responsible Anesthesia Start Anesthesia Stop Anesthesiologist Time Time IR CEREBRAL Liban Sunshine APRN, 02/16/21 0825 02/16/21 1100 INTRACRANIAL ARTERY BATHING SUIT MAKER, DNAP EMBOLIZATION Events Date Time Event [...] h andoff to the receiving staff during [facility] we 1. Identified the patient [...] 1,000 units/mL injection 6,000 Units heparin standard 84123 Units/250 mL in 0.45 % Sodium C [...] 05/17/2022 organizations such as mormonism groups, unions, [employer] or athletic groups, or school groups? How [...] Room / Location: Department of Radiology in [place], [place] Anesthesia Start: 824 Anesthesia Stop: 1100 [...] Dr. Castillo. Location: Department of Radiology in [place], [place] Pertinent components of the patient's history [...] with patient /legal guardian or through an campaign associate. Risks/Benefits/Alternatives of Blood transfusion discussed with patient [...]
--- OUTSIDE RECORDS SUMMARY | 2022-08-08 23:04 | XMS_ITS | Encounter Summary ---
:1965 Author Organization [facility] Address [address] [place] [address] Care Team Providers Name Role Phone Unavailable Primary Care Provider Unavailable Encounter Details Date Type Department Care Team Description 02/11/2021 Ancillary Procedure Department of Radiology [place] in [facility] raúl Quintana 200 [facility] 200 [place] [phone] (Wo rk) Social History Tobacco Use Types [...] you attend yazidism or Patient refused 2021 mu-ism services? Do [...] bilateral thalami (series 3 image 36), bilateral CASINO ENFORCEMENT AGENT 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 bilateral thalami (series 3 image 36), bilateral CASINO ENFORCEMENT AGENT 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 bilateral thalami (series 3 image 36), bilateral CASINO ENFORCEMENT AGENT 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 bilateral thalami (series 3 image 36), bilateral CASINO ENFORCEMENT AGENT 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 bilateral thalami (series 3 image 36), bilateral CASINO ENFORCEMENT AGENT 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 bilateral thalami (series 3 image 36), bilateral CASINO ENFORCEMENT AGENT 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
--- OUTSIDE RECORDS SUMMARY | 2022-08-08 23:04 | XMS_ITS | Encounter Summary ---
:1965 Author Organization [facility] Address [address] [place] [address] Care Team Providers Name Role Phone Unavailable Primary Care Provider Unavailable Encounter Details Date Type Department Care Team Description 02/11/2021 Ancillary Procedure Department of Radiology [place] in [facility] raúl Quintana 200 [facility] 200 [place] [phone] (Wo rk) Social History Tobacco Use Types [...] you attend restoration or Patient refused 2021 adventist services? Do [...] bilateral thalami (series 3 image 36), bilateral SOLDERING 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 bilateral thalami (series 3 image 36), bilateral SOLDERING 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 bilateral thalami (series 3 image 36), bilateral SOLDERING 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 bilateral thalami (series 3 image 36), bilateral SOLDERING 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 bilateral thalami (series 3 image 36), bilateral SOLDERING 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 bilateral thalami (series 3 image 36), bilateral SOLDERING 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
--- OUTSIDE RECORDS SUMMARY | 2022-08-08 23:04 | XMS_ITS | Encounter Summary ---
:1965 Author Organization [facility] Address [address] [place] [address] Care Team Providers Name Role Phone Unavailable Primary Care Provider Unavailable Reason for Visit Reason Onset Date Comments saul med request 02/03/2021 Encounter Details Date Type Department Care Team Description 02/03/2021 Clinical Communication Department of [facility], trinidad Mccarthy med request Nicotine Dependence, M.S., C.T.T.S., [facility] in [address] [place] [phone] [place], [place] [phone] (Work) [phone] Social History Tobacco Use Types Packs/Day Years [...] you attend restorationism or Patient refused 2021 uatsdin services? Do [...] 02/03/2021 10:16 AM CST Please send to [facility] in [facility] 21 mg patches with refills Nicotrol inhaler with refills Nicotine nasal spray with refills OW TILE PARTITION ERECTOR documented in this encounter Plan of Treatment Not on filedocumented as of this encounter Visit Diagnoses Not on filedocumented in this encounter Additional Health Concerns Assessment Noted Time PHQ-9 Depression Total Score: 23 02/02/2021 11:[address] documented as of this encounter
--- OUTSIDE RECORDS SUMMARY | 2022-08-08 23:04 | XMS_ITS | Encounter Summary ---
:1965 Author Organization [facility] Address [address] [place] [address] Care Team Providers Name Role Phone Unavailable Primary Care Provider Unavailable Encounter Details Date Type Department Care Team Description 02/05/2021 Orders Only Pharmacy Prior Auth RO Elsewhere, Pcp [phone] Social History Tobacco Use Types Packs/Day Years [...] you attend anabaptism or Patient refused 2021 congregation services? Do [...]
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
--- OUTSIDE RECORDS SUMMARY | 2022-08-08 23:05 | XMS_ITS | Encounter Summary ---
:1965 Author Organization [facility] Address [address] [place] [address] Care Team Providers Name Role Phone Unavailable Primary Care Provider Unavailable Reason for Visit Reason Comments Michel Encounter Details Date Type Department Care Team Description 09/04/2020 Clinical Communication Department of Robert Diehl W8B/Scharf Neurology in [place], [place] [address] [place] [address] 200 [place] [phone] Social History Tobacco Use Types Packs/Day Years [...] you attend islam or Patient refused 2021 synagogue services? Do [...]
--- OUTSIDE RECORDS SUMMARY | 2022-08-08 23:05 | XMS_ITS | Encounter Summary ---
:[address] [facility] Address [address] [place] [address] Care Team Providers Name Role Phone Unavailable Primary Care Provider Unavailable Reason for Visit Reason Comments Michel Encounter Details Date Type Department Care Team Description 09/11/2020 Clinical Communication Department of Robert Diehl W8B/Scharf Neurology in [place], [place] 200 [facility] 200 [place] [phone] Social History Tobacco Use Types Packs/Day Years [...]
--- OUTSIDE RECORDS SUMMARY | 2022-08-08 23:05 | XMS_ITS | Encounter Summary ---
:1965 Author Organization [facility] Address [address] [place] [address] Care Team Providers Name Role Phone Unavailable Primary Care Provider Unavailable Encounter Details Date Type Department Care Team Description 01/12/2021 Anticoagulation Visit Department of Neurology Zuly Alex in [facility] raúl [place] 1216 [facility] [address] [place] [phone] Social History Tobacco Use Types Packs/Day Years [...] you attend protestant or Patient refused 2021 religion services? Do [...] Target INR 2.0-3.[address] Argenis Diehl ([id number]). The patient was scheduled for an INR recheck on 01/09/21, however did not have an INR draw until late that afternoon. The results did not become available until after clinic hours. Patient's INR on 01/09/21 was 2.[address]. Discuss[address] with Dr. Argenis Diehl ([id number]) who advises that the patient follow a [...] OF PHONE CALL. Test results, symptom assessment. UITING ASSISTANT documented in this encounter Plan of Treatment Not on filedocumented as of this encounter Procedures Procedure Name Priority Date/Time Associated Diagnosis Comme nts PROTHROMBIN TIME (PT), Routine 01/09/2021 Resul ts for this P procedure are i n the results section . documented in this encounter Results Prothrombin Time (PT) (01/09/2021) P athologist Signature EXT INR 2.40 OTHER (SPECIFY IN NURSE INFORMATICS EDUCATOR) Specimen (Source) Anatomical Location Collection Method / Collectio n Time Received Time / Laterality Volume Blood (Blood, 01/09/2021 Venous) Narrative This result has an attachment that is no t available. Historical Provider LAB BLOOD ADD-ON Performing Organization Address City/State/ZIP Code Phon e Number OTHER (SPECIFY IN NURSE INFORMATICS EDUCATOR) OTHER (SPECIFY IN NURSE INFORMATICS EDUCATOR) N/A documented in this encounter Visit Diagnoses Not on filedocumented in this encounter Additional Health Concerns Assessment Noted Time PHQ-9 Depression Total Score: 5 04/05/2019 8:00 AM CDT documented as of this encounter
--- OUTSIDE RECORDS SUMMARY | 2022-08-08 23:05 | XMS_ITS | Encounter Summary ---
:1965 Author Organization [facility] Address [address] [place] [address] Care Team Providers Name Role Phone Unavailable Primary Care Provider Unavailable Encounter Details Date Type Department Care Team Description 12/31/2020 Orders Only Department of Robert Diehl Stroke Cereb rovascular Accident Personal History (Primary Dx); Neurology in [place] Thrombosis Arterial (HCC) [place], [place] 200 [facility] 200 [place] [phone] Social History Tobacco Use Types Packs/Day Years [...] you attend temple or Patient refused 2021 mandaeism services? Do [...]
--- OUTSIDE RECORDS SUMMARY | 2022-08-08 23:05 | XMS_ITS | Encounter Summary ---
:1965 Author Organization [facility] Address [address] [place] [address] Care Team Providers Name Role Phone Unavailable Primary Care Provider Unavailable Encounter Details Date Type Department Care Team Description 01/07/2021 Anticoagulation Visit Department of Neurology Zuly Alex in [facility] raúl [place] 1216 [facility] [address] [place] [phone] Social History Tobacco Use Types Packs/Day Years [...] you attend mosque or Patient refused 2021 adventism services? Do [...] is 2.28. Discussed with Dr. Ashley Castrejon ([id number]) who advises that the patient take 5 [...] OF PHONE CALL. Test results, symptom assessment. OPERATIONS TECHNICIAN documented in this encounter Plan of Treatment Not on filedocumented as of this encounter Procedures Procedure Name Priority Date/Time Associated Diagnosis Comme nts PROTHROMBIN TIME (PT), Routine 01/07/2021 Resul ts for this P procedure are i n the results section . documented in this encounter Results Prothrombin Time (PT) (01/07/2021) P athologist Signature EXT INR 2.28 OTHER (SPECIFY IN BUSINESS DEVELOPMENT PROFESSIONAL) Specimen (Source) Anatomical Location Collection Method / Collectio n Time Received Time / Laterality Volume Blood (Blood, 01/07/2021 Venous) Narrative This result has an attachment that is no t available. Historical Provider LAB BLOOD ADD-ON Performing Organization Address City/State/ZIP Code Phon e Number OTHER (SPECIFY IN BUSINESS DEVELOPMENT PROFESSIONAL) OTHER (SPECIFY IN BUSINESS DEVELOPMENT PROFESSIONAL) N/A documented in this encounter Visit Diagnoses Not on filedocumented in this encounter Additional Health Concerns Assessment Noted Time PHQ-9 Depression Total Score: 5 04/05/2019 8:00 AM CDT documented as of this encounter
--- OUTSIDE RECORDS SUMMARY | 2022-08-08 23:05 | XMS_ITS | Encounter Summary ---
:1965 Author Organization [facility] Address 200 [place] [address] Care Team Providers Name Role Phone Unavailable Primary Care Provider Unavailable Reason for Referral MRI/CAT/PET Scan (Routine) - Closed Specialty Diagnoses / Procedures Referred By Contact Refer red To Contact Radiology Diagnoses Robert Akhtar M.D. [facility] Procedures CT Head Neck Angiogram with IV Contrast 200 [place] [address] Referral ID Status Reason Start Date Expiration Date Visits Requ ested Visits Authorized [id number] Closed 12/30/2020 12/30/2021 1 1 ITY SYSTEMS REPAIRER OPERATOR MRI/CAT/PET Scan (Routine) - Closed Specialty Diagnoses / Procedures Referred By Contact Refer red To Contact Radiology Diagnoses Stroke Cerebrovascular Accident Personal History Robert Diehl M.D. [facility] Procedures CT Head without IV Contrast [address] [place] [address] Referral ID Status Reason Start Date Expiration Date Visits Requ ested Visits Authorized [id number] Closed 12/30/2020 12/30/2021 1 1 ITY SYSTEMS REPAIRER OPERATOR Reason for Visit MRI/CAT/PET Scan (Routine) - Closed Specialty Diagnoses / Procedures Referred By Contact Refer red To Contact Radiology Diagnoses Ataxia Robert Diehl M.D. [facility] Procedures CT Head Neck Angiogram with IV Contrast [address] [place] [address] Referral ID Status Reason Start Date Expiration Date Visits Requ ested Visits Authorized [id number] Closed 12/30/2020 12/30/2021 1 1 Encounter Details Date Type Department Care Team Description 12/31/2020 Hospital Encounter Department of Robert Diehl Stroke Cerebrovascular Accident Personal History; Radiology, Severiano Celaya M.D. [facility], in [address] [place] [phone] [place] [address] [place], [place] (Work) [phone] Social History Tobacco Use Types Packs/Day Years [...] you attend jew or Patient refused 2021 mormonism services? Do [...] Robert Diehl M.D. - 12/31/2020 5:17 PM UTILITY SYSTEMS REPAIRER OPERATOR I called and discussed the results with [...] by: Robert Diehl M.D. 12/31/20 5:16 PM UTILITY SYSTEMS REPAIRER OPERATOR Stroke Cerebrovascular Accident Personal History Plan: CT Head without IV Contrast, CT Head without IV Contrast Ataxia Plan: CT Head Neck Angiogram with IV Contrast, CT Head Neck Angiogram with IV Contrast ITY SYSTEMS REPAIRER OPERATOR documented in this encounter Plan of Treatment Not on filedocumented as of this encounter Procedures Procedure Name Priority Date/Time Associated Diagnosis Comme nts CT HEAD WITHOUT RAD - Routine 12/31/2020 3:34 Stroke Results for IV CONTRAST (most inpatients PM UTILITY SYSTEMS REPAIRER OPERATOR Cerebrovascular this pro cedure and all Accident Personal are in the outpatients) History results section. CT HEAD NECK RAD - Routine 12/31/2020 3:34 Ataxia Results for ANGIOGRAM WITH (most inpatients PM UTILITY SYSTEMS REPAIRER OPERATOR this proc edure IV CONTRAST and all are in the outpatients) results section. documented in this encounter Results CT Head Neck Angiogram with IV Contrast (12/31/2020 3:34 PM UTILITY SYSTEMS REPAIRER OPERATOR) Anatomical Region Laterality Modality Head and Neck, Neuroradiology RST LOS, N/A C omputed Tomography, Computed Neuroradiology ARZ LOS, Neuroradiology T omography FLA [facility] Specimen (Source) Anatomical Collection Method Collection Time Re ceived Time Location / / Volume Laterality 12/31/2020 3:49 PM UTILITY SYSTEMS REPAIRER OPERATOR Impressions 12/31/2020 4:54 PM UTILITY SYSTEMS REPAIRER OPERATOR 1. Evolving right cerebellar infarct with [...] oid ICA aneurysms. Narrative 12/31/2020 4:54 PM UTILITY SYSTEMS REPAIRER OPERATOR EXAM: CT HEAD WITHOUT IV CONTRAST, [...] discussed with ordering physici Dr. Fazal abbasi ([id number]) at 4:54 PM on 12/31/2020. Procedure Note [...] discussed with ordering physici Dr. Fazal abbasi ([id number]) at 4:54 PM on 12/31/2020. IMPRESSION: 1. [...] Head without IV Contrast (12/31/2020 3:34 PM UTILITY SYSTEMS REPAIRER OPERATOR) Anatomical Region Laterality Modality Head, Neuroradiology RST LOS, N/A Computed T omography, Computed Neuroradiology ARZ LOS, Neuroradiology T omography FLA LOS Specimen (Source) Anatomical Collection Method Collection Time Re ceived Time Location / / Volume Laterality 12/31/2020 3:49 PM UTILITY SYSTEMS REPAIRER OPERATOR Impressions 12/31/2020 4:54 PM UTILITY SYSTEMS REPAIRER OPERATOR 1. Evolving right cerebellar infarct with [...] oid ICA aneurysms. Narrative 12/31/2020 4:54 PM UTILITY SYSTEMS REPAIRER OPERATOR EXAM: CT HEAD WITHOUT IV CONTRAST, [...] discussed with ordering physici Dr. Fazal abbasi ([id number]) at 4:54 PM on 12/31/2020. Procedure Note [...] Findings discussed with ordering physici anDr. Diehl ([id number]) at 4:54 PM on 12/31/2020. IMPRESSION: 1. [...] mg iodine/mL solution Given 12/31/2020 3:34 PM UTILITY SYSTEMS REPAIRER OPERATOR 1 00 mL 1-200 mL (OMNIPAQUE) 1-200 mL, intravenous, Once in imaging, contrast, Starting on Tue12/31/20 at 1411, For 1 dose, Imaging Protocol Orders, Dose per Radiant Medication Guidelines sodium chloride (PF) 0.9 % injection 1-1 00 mL Given 12/31/2020 3:34 PM UTILITY SYSTEMS REPAIRER OPERATOR 35 mL 1-100 mL, intravenous, Once, On Tue12/31/20 at 1415, For 1 dose, Imaging Protocol Orders documented in this encounter Additional Health Concerns Assessment Noted Time PHQ-9 Depression Total Score: 5 04/05/2019 8:00 AM CDT documented as of this encounter
--- OUTSIDE RECORDS SUMMARY | 2022-08-08 23:05 | XMS_ITS | Encounter Summary ---
:1965 Author Organization [facility] Address [address] [place] [address] Care Team Providers Name Role Phone Unavailable Primary Care Provider Unavailable Reason for Visit Reason Comments Pre-visit Intake Encounter Details Date Type Department Care Team Description 01/29/2021 Clinical Communication Department of Robert Diehl e-visit Intake Neurology in [place] Celaya [place], [facility] [place], [place] [address] [place] [address] [place], [place] [phone] (Work) [phone] Social History Tobacco Use Types Packs/Day Years [...] you attend zoroastrian or Patient refused 2021 christian services? Do [...]
--- OUTSIDE RECORDS SUMMARY | 2022-08-08 23:05 | XMS_ITS | Encounter Summary ---
:1965 Author Organization [facility] Address [address] [place] [address] Care Team Providers Name Role Phone Unavailable Primary Care Provider Unavailable Reason for Visit Reason Comments Initiate warfarin anticoagulation. Encounter Details Date Type Department Care Team Description 01/01/2021 Clinical Communication Department of Renny Mahoney warfarin Neurology in [place] anticoagulation. [address] [place] [phone] [place], [place] [phone] (Work) [phone] Social History Tobacco Use Types Packs/Day Years [...] you attend gnosticist or Patient refused 2021 synagogue services? Do [...] PM CST RADHA Thompson, calls in from [facility] with INR results = 3.9. Please call her back at [phone] NEERING EXECUTIVE Telephone Encounter - Renny Mahoney R.N. - 01/05/2021 1:56 PM CST Mackenzie talked to her, she needs to go to the lab today. NEERING EXECUTIVE Telephone Encounter - Allyssa Amaya - 01/05/2021 11:14 AM CST Patient calls in regarding this. She is wanting this set up now so a nurse can come into her home and do this. She I believed mentions that a nurse comes into her home now. She would like a call to discuss. NEERING EXECUTIVE Telephone Encounter - Robert Diehl M.D. - 01/01/2021 4:46 PM CST Absolutely and thank you very much for coordinating this NEERING EXECUTIVE Addendum Note - Renny Mahoney R.N. - 01/01/2021 1:03 PM ENGINEERING EXECUTIVE Addended by: RENNY MAHONEY on: 01/01/2021 01:03 PM Modules accepted: Orders NEERING EXECUTIVE Telephone Encounter - Renny Mahoney R.N. - 01/01/2021 12:45 PM CST I spoke to the patient by telephone today to discuss reinitiating warfarin. The patient referred by Dr. Argenis Diehl ([phone]). The patient's target INR is 2.0-3.0. 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 The anticipated duration of warfarin is watermaster. As per Dr. Diehl, the patient is to be instructed to discontinue the 325 mg aspirin once the target INR is reached. The patient shares that she is well aware of the risks/benefits and process of taking warfarin with regular INR monitoring. She declined the need for additional education by phone regarding anticoagulation. She would like to have her INRs drawn at [facility] with results faxed to us [facility]. I spoke with her local primary care physician nurse about this as well. Once Dr. Diehl obtains imaging in about 3 months, we may consider transitioning her anticoagulation care to her local [facility]. The patient will take 5 mg warfarin nightly starting tonight 01/01/21, then have an INR drawn 01/05/21 at [facility] with results faxed to us. A prescription for warfarin 5 mg #30, take as directed, may refill X 1 was eprescribed to [facility]. The patient reported an adequate understanding of her plan of care and expressed agreement with thisplan. RECOMMENDED LEVEL OF CARE. The patient/caller is willing and able to follow the nurse's recommendation. RESPONSE TO ADVICE GIVEN. Patient/caller able to teach back. REFERENCES UTILIZED. Nursing clinical judgment utilized. Other interventions or information: Provider advice. TYPE OF PHONE CALL. Medical information, care coordination. . NEERING EXECUTIVE Addendum Note - Renny Mahoney R.N. - 01/01/2021 9:43 AM ENGINEERING EXECUTIVE Addended by: RENNY MAHONEY on: 01/01/2021 09:43 AM Modules accepted: Orders NEERING EXECUTIVE Telephone Encounter - Renny Mahoney R.N. - 01/01/2021 9:32 AM CST I have spoken with the pharmacist at [facility] in [place]. He notes that in 2018 when thepatient previously was treated with warfarin, she was taking 5 mg nightly for a period of time. Eventually some nights she was taking 7.5 mg nightly. The pharmacist reviewed potential medication interactions with the patient's current medication list. No serious interactions anticipated. As per Dr. Yeboah ([phone]), we will initiate 5 mg nightly. She will continue aspirin until therapeutic INR is reached. NEERING EXECUTIVE Telephone Encounter - Renny Mahoney R.N. - 01/01/2021 8:47 AM CST The patient has been experiencing episodes of vertigo, gait instability, with a fall, she was seen in the ED of [facility] on 12/22/20. Head CT was performed and sent to [facility] for Dr. Diehl's review. He noted [...] the patient's primary care team at the [facility]. I have discussed this with the patient who reports an ad equate understanding and agreement with this plan. RECOMMENDED LEVEL OF CARE. The patient/caller is willing and able to follow the nurse's recommendation. RESPONSE TO ADVICE GIVEN. Patient/caller able to teach back. REFERENCES UTILIZED. Nursing clinical judgment utilized. Other interventions or information: Provider advice. TYPE OF PHONE CALL. Care coordination. NEERING EXECUTIVE Telephone Encounter - Renny Mahoney R.N. - 01/01/2021 8:46 AM CST ----- Message from Robert Diehl M.D. sent at 12/31/2020 5:17 PM ENGINEERING EXECUTIVE ----- I called and discussed the results [...] by: Robert Diehl M.D. 12/31/20 5:16 PM ENGINEERING EXECUTIVE Stroke Cerebrovascular Accident Personal History Plan: CT Head without IV Contrast, CT Head without IV Contrast Ataxia Plan: CT Head Neck Angiogram with IV Contrast, CT Head Neck Angiogram with IV Contrast NEERING EXECUTIVE documented in this encounter Plan of Treatment Scheduled Orders Name Type Priority Associated Diagnoses Order S chedule Prothrombin Time (PT) Lab Routine Penitentiary Anticoagu lant 50 Occurrences starting Treatment 01/01/2021 unti l 01/01/2024 documented as of this encounter Visit Diagnoses Diagnosis Financial Management (Current) Anticoagulant Treatm ent - Primary documented in this encounter Additional Health Concerns Assessment Noted Time PHQ-9 Depression Total Score: 5 04/05/2019 8:00 AM CDT documented as of this encounter
--- OUTSIDE RECORDS SUMMARY | 2022-08-08 23:05 | XMS_ITS | Encounter Summary ---
:1965 Author Organization [facility] Address [address] [place] [address] Care Team Providers Name Role Phone Unavailable Primary Care Provider Unavailable Encounter Details Date Type Department Care Team Description 09/15/2020 Ancillary Procedure Department of Robert Diehl Aneurysm Radiology jimmy Celaya M.D. Nonruptured (HCC) [place], [place] [address] [facility] [address] [place] [phone] Social History Tobacco Use Types Packs/Day Years [...] you attend yazidism or Patient refused 2021 buddhism services? Do [...] nt right vertebral artery. RADHA, MCA, and aircraft engine mechanic supervisor are patent. Neck MRA: Conventional three-vessel arch [...] nt right vertebral artery. RADHA, MCA, and aircraft engine mechanic supervisor are patent. Neck MRA: Conventional three-vessel arch [...]
--- OUTSIDE RECORDS SUMMARY | 2022-08-08 23:05 | XMS_ITS | Encounter Summary ---
:1965 Author Organization [facility] Address [address] [place] [address] Care Team Providers Name Role Phone Unavailable Primary Care Provider Unavailable Reason for Referral Outpatient (Routine) - Closed Specialty Diagnoses / Procedures Referred By Contact Refer red To Contact Home Health Care Diagnoses Stroke (HCC) Chronic Pain Syndrome Stroke Cerebrovascular Accident Personal History Ric Quinn M.D., M.S. [address] [place] [id number] Referral ID Status Reason Start Date Expiration Date Visits Requ ested Visits Authorized [id number] Closed 02/03/2021 02/03/2022 1 1 ERT OR LECTURE HALL MANAGER Encounter Details Date Type Department Care Team Description 01/31/2021 - Hospital Encounter [facility] [place], Stroke (H CC) (Primary Dx); [facility]; [facility], [address] [place] [address] Stroke Cerebrovascular Accident Personal History [facility] [place] [facility] [place] [facility] [phone] floor [phone] [place] [address] (Work) [place], [place] [phone] (Fax) [phone] Social History Tobacco Use Types Packs/Day Years [...] you attend tenriism or Patient refused 2021 episcopal services? Do [...] Comments Blood Pressure 133/71 02/03/2021 5:15 PM CONCERT OR LECTURE HALL MANAGER Pulse 92 02/03/2021 5:15 PM CONCERT OR LECTURE HALL MANAGER Temperature 36.5 ??C (97.7 ??F) 02/03/2021 5:15 PM CONCERT OR LECTURE HALL MANAGER Respiratory Rate 17 02/03/2021 5:15 PM CONCERT OR LECTURE HALL MANAGER Oxygen Saturation 97% 02/03/2021 5:15 PM CONCERT OR LECTURE HALL MANAGER Inhaled Oxygen Concentration - - Weight 78.8 kg (173 lb 11.6 oz) 01/31/2021 9:39 PM CONCERT OR LECTURE HALL MANAGER Height 152.4 cm (5') 01/31/2021 9:39 PM CONCERT OR LECTURE HALL MANAGER Body Mass Index 33.93 01/31/2021 9:39 PM CONCERT OR LECTURE HALL MANAGER documented in this encounter Discharge Summaries Malcom Torres M.D. - 02/03/2021 2:24 PM CST DISCHARGE SUMMARY BRIEF OVERVIEW Hospital: [facility] Discharge Provider: Nan Rios M.D. Primary Team: [facility] Neurology Stroke and Cerebrovascular Disease No [...] artery dissection. Shewas subsequently admitted directly to [facility] Neurology Stroke service for further [...] ??C, temperature source Oral, resp. rate 17, ijgype858.4 cm, weight 78.8 kg, SpO2 94 %. [...] were provided to the patient and caregiver(s). ERT OR LECTURE HALL MANAGER documented in this encounter Discharge Instructions Discharge InstructionsLaquita Raines - 02/02/2021 7:23 AM CST You were discharge from the Neurology Stroke Service. Please Identify this service name if you call with questions after your hospitalization. ERT OR LECTURE HALL MANAGER Discharge Instr - ActivityLeonides Liang PBrittonT. - 02/02/2021 1:13 PM CONCERT OR LECTURE HALL MANAGER Physical Therapy Discharge Summary MOBILITY RESTRICTIONS/PRECAUTIONS: Fall [...] 02/02/2021 by Leonides Liang P.T. Contact information: [facility], [address], ERT OR LECTURE HALL MANAGER AttachmentsThe following attachments cannot be sent through Care Everywhere. Apixaban (By mouth) (Welsh)Nicotine (Absorbed through the skin) (Welsh) Nicotine (By breathing) (Welsh)Nicotine (Into the nose) (Welsh)documented in this encounter Medications at Time of Discharge Medication Sig Dispensed Refills Start Date End Date cetirizine (ZyrTEC) 10 Take 10 mg by mouth 0 mg tablet daily. FLUoxetine (PROzac) 40 Take 80 mg by mouth 0 mg capsule every morning. lamoTRIgine (LaMICtal) Take 200 mg by mouth 3 200 mg tablet 2 (two) times a day. albuterol (PROVENTIL [...] 150 mg 24 hr tablet every morning. ipratropium-albuteroL Inhale 3 mL by 0 01/16/2021 (DUONEB) 0.5-2.5 mg/3 mL nebulization 4 (four) nebulizer solution times a day as needed for shortness of breath or wheezing. MAG-G 27 mg magnesium Take 1 tablet [...] tablet (1300MG) BY MOUTH EVERY EIGHT HOURS diphenhydrAMINE Take 25-50 mg by 0 (BENADRYL) 25 mg tablet mouth every 6 (six) hours as needed for itching. oxyCODONE (ROXICODONE) Take 10 mg by mouth [...] by mouth 2 (two) times a day. atorvastatin (LIPITOR) Take 1 tablet (40 mg [...] tablet a day as needed for nausea. 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 - 02/03/2021 1:57 PM CST No PT intervention today as patient was at an MRI this morning, now stating that she has just gone for a walk and plans are for dc to home with intermittent assist from her son. Helen Greer, PT ERT OR LECTURE HALL MANAGER Catalina Panchal, R.N. - 02/03/2021 1:49 PM CST Patient discussed at Stroke Multidisciplinary Rounds. Plan for the day: Case Management Following, PT/OT, Medication Management, MRI/MRA Plan for the Stay: Stroke w/u Discharge barriers: Inpatient Needs Recommended discharge disposition[facility] [place] ERT OR LECTURE HALL MANAGER Nan Rios M.D. - 02/03/2021 10:36 AM [...] pain syndrome, fibromyalgia, and nicotine use disorder. ERT OR LECTURE HALL MANAGER Leonides Kumar M.D. - 02/03/2021 7:09 AM [...] status: Prior Disposition: Home Plan discussed with [facility] Neurology Stroke and Cerebrovascular Disease Drywall Finisher, Dr. Rios. Please page the [facility] Neurology Stroke and Cerebrovascular Disease service pager at [phone] with any questions. Leonides Kumar M.D. ERT OR LECTURE HALL MANAGER Makenzie Figueredo O.T.Katarina - 02/02/2021 3:24 PM [...] home to ensure her safety. From the Digital Account Coordinator's perspective, the patient is not an inpatient [...] Treatment Time (min): 32 min MILA Cardoza ERT OR LECTURE HALL MANAGER Catalina Panchal RBetsy - 02/02/2021 2:31 PM CST Patient discussed at Stroke Multidisciplinary Rounds. Plan for the day: MRI, Case Management Consult, PT/OT, Medication Management Plan for the Stay: Stroke w/u Discharge barriers: Inpatient Needs Recommended discharge disposition: [facility] [place] ERT OR LECTURE HALL MANAGER Leonides Liang P.T. - 02/02/2021 12:58 PM [...] Time (min): 32 min Leonides Liang P.T. ERT OR LECTURE HALL MANAGER Nan Rios M.D. - 02/02/2021 10:27 AM [...] pain syndrome, fibromyalgia, and nicotine use disorder. ERT OR LECTURE HALL MANAGER Jessie Rock Pharm.D., R.Ph. - 02/02/2021 10:21 AM CST Images from the original note were not included. Admission Medication History Note Adherence issues: Unable to assess Medication list source: Pharmacy or dispense records. Medication list provided by [facility] in [place]. Most recent dispensing information obtained. Multiple changes [...] by mouth 2 (two) times a day. ERT OR LECTURE HALL MANAGER Leonides Kumar M.D. - 02/02/2021 6:55 AM [...] status: Prior Disposition: Home Plan discussed with [facility] Neurology Stroke and Cerebrovascular Disease Drywall Finisher, Dr. Rios. Please page the [facility] Neurology Stroke and Cerebrovascular Disease service pager at [phone] with any questions. Leonides Kumar M.D. ERT OR LECTURE HALL MANAGER Leonides Kumar M.D. - 02/01/2021 6:36 AM [...] status: Prior Disposition: Home Plan discussed with [facility] Neurology Stroke and Cerebrovascular Disease Drywall Finisher, Dr. Rios. Please page the [facility] Neurology Stroke and Cerebrovascular Disease service pager at [phone] with any questions. Leonides Kumar M.D. ERT OR LECTURE HALL MANAGER documented in this encounter H&P Notes Nan [...] segment. ?? The patient presented to the [place] ED with acute onset vertigo which occurred yesterday afternoon while she was at [facility]. She bent forward and complained of neck pain which radiated to the top of her head. She also complained of warmth all over her body and generalised weakness. ?? With effort, she was able to ambulate back to her car with her groceries, where she met her son, whothen took her to the [place] ED. There, the patient had a head CT the chronic left cerebellar infarct. There was also concern for a new infarct in the right thalamus. INR was 1.35. She was transferred to [facility] for further evaluation. ?? Today, [...] pain syndrome, fibromyalgia, and nicotine use disorder. ERT OR LECTURE HALL MANAGER Marbella Cutler M.D. - 02/01/2021 2:55 AM [...] V4 segment. The patient presented to the [place] ED with acute onset vertigo which occurred yesterday afternoon while she was at [facility]. She bent forward and complained of neck pain which radiated to the top of her head. She also complained of warmth all over her body and generalised weakness. With effort, she was able to ambulate back to her car with her groceries, where she met her son, whothen took her to the [place] ED. There, the patient had a head CT the chronic left cerebellar infarct. INR was 1.35. She was transferred to [facility] for further evaluation. On the floor, she was hemodynamically stable but complained of ongoing vertigo, with difficulty keeping her eyes open. Social history: she is currently unemployed but previously worked at a [employer]. She is fully independent of her ADLs [...] admitting resident. Please page the Stroke service [phone] with questions/concerns. ERT OR LECTURE HALL MANAGER Gerald England M.D. - 01/31/2021 9:16 PM [...] artery dissection. Shewas subsequently admitted directly to [facility] Neurology Stroke service for further [...] COMPUTER NAVIGATION.; Surgeon: Darlin Olmedo M.D.; Location: [facility] ROMB OR ??? HYSTERECTOMY ??? JOINT REPLACEMENT [...] More than three times a week Attends episcopal service: Patient refused Active member of club [...] and normal caliber bilateral MCAs, ACAs and broker. Patent anterior and right posterior communicating arteries. [...] page the Cerebrovascular Neurology Service pager at [phone] with any questions or concerns. [facility] Stroke Neurology Service Chief Hydroelectric Station Operator: Nan England M.D. STROKE DOCUMENTATION: Stroke Center [...] to hemorrhage and/or hemorrhagic risk Prestroke modified Camden Score (mRS): 1 - No significant disability. [...] 30 or greater) and hormonal contraceptive use ERT OR LECTURE HALL MANAGER documented in this encounter Consult Notes Pamela Middleton M.S., L.Sapna.NeriC., C.T.T.S. - 02/03/2021 10:08 AM CSTAssociated Order(s): IP CONSULT TO INTERNAL MEDICINE NICOTINE DEPENDENCE; IP CONSULT TO INTERNAL MEDICINE NICOTINE DEPENDENCE SUBJECTIVE Consults REASON FOR CONSULT Admitting Service: Neurology Reason for Consult: Tobacco Use Disorder HISTORY OF PRESENT ILLNESS Angie Bender is a 55 y.o. female who was seen at [place] and is being evaluated for tobacco use [...] provided the patient with educational materials and [facility] contact information. Patient is unable to schedule [...] Middleton M.S., Delvin, C.T.T.S. 02/03/2021 10:08 AM CONCERT OR LECTURE HALL MANAGER ERT OR LECTURE HALL MANAGER Catalina Panchal, RBrittonNBritton - 02/02/2021 2:11 PM CSTAssociated Order(s): IP CONSULT TO CARE MANAGEMENT Discharge Planning Assessment SUBJECTIVE Referral Data Referral Source: Early Screen for Discharge Planning Referral Reason: Discharge Planning Discharge Planning: Home health Who was present during the interview?: Patient Size Tester Services Used: No Patient Information Primary Caregiver: [...] Behavior: Oriented Communication: Talks, Understands speaking, Understands Welsh Environmental Supports Home Environment: House Anticipated Needs/Assistive [...] Nurse visit Home Care Agency Name : [facility] Anticipated Discharge Destination: Home-Health Care [facility] Recommended Discharge Services: Nursing Does the patient need discharge transport arranged?: No ASSESSMENT / PLAN Plan Assessment: The rouge miller met with Angie Bender to discuss her current hospitalization and home goingneeds. The patient was unaccompanied. The patient was a reliable historian, but was lacking completedetails at times. The role of rouge miller was reviewed. The patient reviewed her prior level of care and support system. The patient receives support from her son. The patient described her living environment as a single level home with level entry. Housekeeping, grocery shopping, meal prep, and other household responsibilities have previously been completed by patient. rouge miller discussed the patient's potential needs at dismissal based on their home setti ng, previous needs and responsibilities, homebound status, and relevant assessments with the patient. The patient will be safe and supported to return home with [facility] or previous services noted above when medically [...] dismissal will be provided by family--son. 3. rouge miller recommended nothing at this time. 4. rouge miller provided information regarding the dismissal process. 5. rouge miller placed or requested the following hospital-based consult orders and/or referrals:None. 6. rouge miller will continue to assess for homegoing needs with the interdisciplinary team. 7. rouge miller encouraged the patient to reach out with any questions/concerns. Care Management will continue to follow. Patient to discharge with home health care. [facility] - Admitted Since 01/31/2021 The patient receives halfway visits 1-2x week. She has qualified for CHIEF CREW SCHEDULER, homemaking, and home health aide visits, but [...] With: Alone Receives Help From: Family, Friend(s), suit attendant ADL Assistance: Independent IADL/Homemaking Assistance: Required assistance IADL/Homemaking Assistance Comments: Has assistance with meals on wheels, cleaning, and medication management Occupational Role: On disability Prior Mobility/Functional Transfers Level of [place]: Independent Previous Transfer/Mobility Assistance Comments: Patient reports [...] Time (min): 25 min Radha Samuel P.T. ERT OR LECTURE HALL MANAGER Rosario Lopez O.Jolanta. - 02/01/2021 3:17 PM [...] With: Alone Receives Help From: Family, Friend(s), suit attendant ADL Assistance: Independent IADL/Homemaking Assistance: Required assistance IADL/Homemaking Assistance Comments: Has assistance with meals on wheels, cleaning, and medication management Driving: Independent Occupational Role: On disability Occupational Role Comments: Previously worked at a [employer] Prior Mobility/Functional Transfers Level of [place]: Independent Home Living Type of Home: Apartment [...] Time (min): 60 min Rosario Lopez O.T. ERT OR LECTURE HALL MANAGER Maria M Duque M.D. - 02/01/2021 7:21 AM CSTAssociated Order(s): IP CONSULT TO PHYSICAL MEDICINE & REHABILITATION Consult received for Physical Medicine and Rehabilitation Consult Service. I reviewed the electronic health record. I have triaged to therapy only; no needle loom setter consult appears to be necessary at this time. If therapists or referring service feel that a needle loom setter review is necessary, please send a new consult request with only the Physician consult - Physical Medicine and Rehabilitation consult (hospital) item selected. ERT OR LECTURE HALL MANAGER documented in this encounter Nursing Notes Sofie [...] by: Sofie Sutton R.N. 02/03/21 5:24 PM CONCERT OR LECTURE HALL MANAGER ERT OR LECTURE HALL MANAGER Sofie Sutton R.N. - 02/03/2021 5:20 PM [...] by: Sofie Sutton R.N. 02/03/21 5:22 PM CONCERT OR LECTURE HALL MANAGER ERT OR LECTURE HALL MANAGER Marlene Grover R.N. - 02/03/2021 5:14 AM [...] Goal: Patient discharge needs identified Outcome: Progressing ERT OR LECTURE HALL MANAGER Mague Rudolph R.N. - 02/02/2021 5:03 AM CST Shift Goals: Clinical Goals for the Shift: patient will use call light appropriately Identify possible barriers to meeting goals/advancing plan of care: End of Shift Summary: patient met goal ERT OR LECTURE HALL MANAGER Valarie Grayson R.N. - 02/01/2021 5:59 PM CST Shift Goals: Clinical Goals for the Shift: Patient will tolerate MRI Identify possible barriers to meeting goals/advancing plan of care: Patient's medical records analyst End of Shift Summary: Goal not met. MRI scheduled for Tuesday related to device monitoring. Electronically signed by: Valarie Grayson R.N. 02/01/21 5:59 PM CONCERT OR LECTURE HALL MANAGER Problem: SKIN/TISSUE INTEGRITY Goal: Skin/Tissue integrity maintained or improved Outcome: Progressing Problem: SAFETY ADULT Goal: Maintain a safe environment Outcome: Progressing Problem: SAFETY ADULT - RISK FOR FALL AND OR FALL INJURY Goal: Patient remains free from fall/fall injury Outcome: Progressing ERT OR LECTURE HALL MANAGER documented in this encounter Miscellaneous Notes Hospital [...] artery dissection. Shewas subsequently admitted directly to [facility] Neurology Stroke service for further [...] after a CTA head/neck in 3 months. ERT OR LECTURE HALL MANAGER documented in this encounter Plan of Treatment Scheduled Referrals Name Type Priority Associated Diagnoses [facility] Outpatient Referral Routine Stroke (HCC) Ordered: Health Referral Chronic Pain Syn drome 02/03/2021 Stroke Cerebrovascular Accident Personal History documented as of this encounter Procedures Procedure Name Priority Date/Time Associated Comments Diagnosis MR NECK ANGIOGRAM RAD - Routine 02/03/2021 Results f or WITHOUT AND WITH IV (most inpatients 12:39 PM CONCERT OR LECTURE HALL MANAGER this procedure CONTRAST and all are in the outpatients) results section. MR BRAIN WITHOUT AND RAD - Routine 02/03/2021 Result s for WITH IV CONTRAST (most inpatients 12:34 PM CONCERT OR LECTURE HALL MANAGER this pr ocedure and all are in the outpatients) results section. DX ABDOMEN SUPINE WITH RAD - Routine 02/02/2021 3:26 R esults for UPRIGHT OR DECUBITUS 2 (most inpatients PM CONCERT OR LECTURE HALL MANAGER t his procedure VIEWS and all are in the outpatients) results section. PROTHROMBIN TIME (PT), Routine 02/02/2021 5:20 Re sults for P AM CONCERT OR LECTURE HALL MANAGER this procedure are in the results section. LIPID PANEL, S Routine 02/01/2021 5:21 Results fo r AM CONCERT OR LECTURE HALL MANAGER this procedure are in the results section. RENAL FUNCTION PANEL, S Routine 02/01/2021 5:21 R esults for AM CONCERT OR LECTURE HALL MANAGER this procedure are in the results section. FOLATE, S Routine 02/01/2021 5:21 Results for AM CONCERT OR LECTURE HALL MANAGER this procedure are in the results section. VITAMIN B12 ASSAY, S Routine 02/01/2021 5:21 Resu lts for AM CONCERT OR LECTURE HALL MANAGER this procedure are in the results section. ECG Routine 01/31/2021 Results for 11:35 PM CONCERT OR LECTURE HALL MANAGER this procedure are in the results section. SARS CORONAVIRUS 2, Routine 01/31/2021 Results for RNA, RAPID POC, V 10:32 PM CONCERT OR LECTURE HALL MANAGER this proce dure are in the results section. ELECTROLYTE (CHEM 4) Routine 01/31/2021 9:44 Resu lts for PANEL, S/P PM CONCERT OR LECTURE HALL MANAGER this procedure are in the results section. ACTIVATED PARTIAL Routine 01/31/2021 9:44 Results for THROMBOPLASTIN TIME PM CONCERT OR LECTURE HALL MANAGER this pro cedure (APTT), P are in the results section. PROTHROMBIN TIME (PT), Routine 01/31/2021 9:44 Re sults for P PM CONCERT OR LECTURE HALL MANAGER this procedure are in the results section. CBC WITH DIFFERENTIAL, Routine 01/31/2021 9:44 Re sults for B PM CONCERT OR LECTURE HALL MANAGER this procedure are in the results section. ALANINE Routine 01/31/2021 9:44 Results for AMINOTRANSFERASE (ALT), PM CONCERT OR LECTURE HALL MANAGER this procedure S/P are in the results section. ASPARTATE Routine 01/31/2021 9:44 Results for AMINOTRANSFERASE (AST), PM CONCERT OR LECTURE HALL MANAGER this procedure S/P are in the results section. THYROID-STIMULATING Routine 01/31/2021 9:44 Resul ts for HORMONE-SENSITIVE PM CONCERT OR LECTURE HALL MANAGER this proce dure (S-TSH) are in the results section. HEMOGLOBIN A1C, B Routine 01/31/2021 9:44 Results for PM CONCERT OR LECTURE HALL MANAGER this procedure are in the results section. documented in this encounter Results MR Neck Angiogram without and with IV Contrast (02/03/2021 12:39 PM CONCERT OR LECTURE HALL MANAGER) Anatomical Region Laterality Modality Neck, Neuroradiology RST LOS, Neuroradiology ARZ [facility], N/A Magnetic Resonance Neuroradiology FLA [facility] Specimen (Source) Anatomical Collection Method Collection Time Re ceived Time Location / / Volume Laterality 02/03/2021 11:37 AM CONCERT OR LECTURE HALL MANAGER Impressions 02/03/2021 1:26 PM CONCERT OR LECTURE HALL MANAGER 1. Infarctions in the posterior circulation of [...] technica l limitations. Narrative 02/03/2021 1:26 PM CONCERT OR LECTURE HALL MANAGER EXAM: MR BRAIN WITHOUT AND WITH IV [...] and with IV Contrast (02/03/2021 12:34 PM CONCERT OR LECTURE HALL MANAGER) Anatomical Region Laterality Modality Head, Brain, Neuroradiology RST LOS, Neuroradiology ADILIA N/A Magnetic Resonance LOS, Neuroradiology FLA [facility] Specimen (Source) Anatomical Collection Method Collection Time Re ceived Time Location / / Volume Laterality 02/03/2021 11:37 AM CONCERT OR LECTURE HALL MANAGER Impressions 02/03/2021 1:26 PM CONCERT OR LECTURE HALL MANAGER 1. Infarctions in the posterior circulation of [...] technica l limitations. Narrative 02/03/2021 1:26 PM CONCERT OR LECTURE HALL MANAGER EXAM: MR BRAIN WITHOUT AND WITH IV [...] or Decubitus 2 Views (02/02/2021 3:26 PM CONCERT OR LECTURE HALL MANAGER) Anatomical Region Laterality Modality Abdomen, Abdominal RST LOS, Abdominal ARZ LOS, Right Digital Radiography Abdominal FLA LOS Specimen (Source) Anatomical Collection Method Collection Time Re ceived Time Location / / Volume Laterality 02/02/2021 3:49 PM CONCERT OR LECTURE HALL MANAGER Impressions 02/02/2021 3:50 PM CONCERT OR LECTURE HALL MANAGER Spinal stimulator device with tip over the T7-8 interspace. Generator pack posterior to the left janett ac crest. Postoperative changes ventral hernia repair. Surgical marylin near the GE junction. Cholecystectomy. Lung bases are clear. Narrative 02/02/2021 3:50 PM CONCERT OR LECTURE HALL MANAGER EXAM: ??DX ABDOMEN SUPINE WITH UPRIGHT OR [...] crest. Postoperative changes ventral hernia repair. Surgical marlyin near the GE junction. Cholecystectomy. Lung bases are clear. Leonides Kumar M.D. IMG DIAGNOSTIC IMAGING PROCE DURES (ABNORMAL) Prothrombin Time (PT) (02/02/2021 5:20 AM CONCERT OR LECTURE HALL MANAGER) [facility] Method Time Signature Prothrombin 16.2 (H) 9.4 - 12.5 02/02/2021 DTL Time, P sec 6:12 AM CONCERT OR LECTURE HALL MANAGER INR 1.5 0.9 - 1.1 02/02/2021 DTL 6:12 AM CONCERT OR LECTURE HALL MANAGER Comment: ----ADDITIONAL INFORMATION---- Standard intensity warfarin therapeutic range: 2.0 to 3.0 ?? High intensity warfarin therapeutic rang e: 2.5 to 3.5 Specimen Anatomical Collection Method Collection Time Receive d Time (Source) Location / / Volume Laterality Blood (Blood, 02/02/2021 5:20 AM 02/03/20 5:48 Venous) CONCERT OR LECTURE HALL MANAGER AM CONCERT OR LECTURE HALL MANAGER Leonides Kumar M.D. LAB BLOOD ADD-ON Performing Organization Address City/State/ZIP Code Phon e Number [facility] - [address] [place], [place] [address] [facility] [place] [address] Laboratories-[facility] [address] [facility] Renal Function Panel (02/01/2021 5:21 AM CONCERT OR LECTURE HALL MANAGER) athologist Signature Potassium, S 4.3 3.6 - 5.2 02/01/2021 DTL mmol/L 6:26 AM CONCERT OR LECTURE HALL MANAGER Sodium, S 139 135 - 145 02/01/2021 DTL mmol/L 6:26 AM CONCERT OR LECTURE HALL MANAGER Chloride, S 106 98 - 107 02/01/2021 DTL mmol/L 6:26 AM CONCERT OR LECTURE HALL MANAGER Bicarbonate, S 25 22 - 29 02/01/2021 DTL mmol/L 6:26 AM CONCERT OR LECTURE HALL MANAGER Anion Gap 8 7 - 15 02/01/2021 DTL 6:26 AM CONCERT OR LECTURE HALL MANAGER BUN (Blood Urea 14 6 - 21 02/01/2021 DTL Nitrogen), S mg/dL 6:26 AM CONCERT OR LECTURE HALL MANAGER Creatinine 0.74 0.59 - 02/01/2021 DTL 1.04 mg/dL 6:26 AM CONCERT OR LECTURE HALL MANAGER eGFR-Non >90 >=60 02/01/2021 DTL Black/ mL/min/BSA 6:26 AM CONCERT OR LECTURE HALL MANAGER [place] Comment: ----ADDITIONAL INFORMATION---- Estimated GFR calculated using the 2009 CKD_EPI creatinine equation. eGFR-Black/ >90 >=60 mL/min/BSA 2020 6:26 AM CONCERT OR LECTURE HALL MANAGER DTL Comment: ----ADDITIONAL INFORMATION---- Estimated GFR calculated using the 2009 CKD_EPI creatinine equation. Calcium, Total, S 9.2 8.6 - 10.0 mg/dL 02/01/2021 6:26 AM CONCERT OR LECTURE HALL MANAGER DTL Glucose, S 96 70 - 140 mg/dL 02/01/2021 6:26 AM CONCERT OR LECTURE HALL MANAGER D TL Albumin, S 3.6 3.5 - 5.0 g/dL 02/01/2021 6:26 AM CONCERT OR LECTURE HALL MANAGER D TL Phosphorus (Inorganic), S 4.0 2.5 - 4.5 mg/dL 02/02/20 6:26 AM CONCERT OR LECTURE HALL MANAGER DTL Specimen Anatomical Collection Method Collection Time Receive d Time (Source) Location / / Volume Laterality Blood (Blood, 02/01/2021 5:21 AM 02/02/20 5:52 Venous) CONCERT OR LECTURE HALL MANAGER AM CONCERT OR LECTURE HALL MANAGER Gerald England M.D. LAB BLOOD ADD-ON Performing Organization Address City/[facility] Phon e Number [facility] - [address] [place] [address] Laboratories-[address] (ABNORMAL) Vitamin B12 Assay (02/01/2021 5:21 AM CONCERT OR LECTURE HALL MANAGER) Analysis Performed At Patho logist Time Signature Vitamin B12 >1400 (H) 180 - 914 02/02/2021 DTL Assay, S ng/L 7:10 AM CONCERT OR LECTURE HALL MANAGER Comment: ----ADDITIONAL INFORMATION---- In patients being evaluated [...] (Blood, 02/01/2021 5:21 AM 02/02/20 5:52 Venous) CONCERT OR LECTURE HALL MANAGER AM CONCERT OR LECTURE HALL MANAGER Gerald England M.D. LAB BLOOD ADD-ON Performing Organization Address City/[facility] Phon e Number [facility] - [address] [place], [place] [address] [place] [address] Laboratories-[address] Folate (02/01/2021 5:21 AM CONCERT OR LECTURE HALL MANAGER) P athologist Signature Folate, S 17.9 >=4.0 mcg/L 02/02/2021 7:09 DTL AM CONCERT OR LECTURE HALL MANAGER Specimen Anatomical Collection Method Collection Time Receive d Time (Source) Location / / Volume Laterality Blood (Blood, 02/01/2021 5:21 AM 02/02/20 5:52 Venous) CONCERT OR LECTURE HALL MANAGER AM CONCERT OR LECTURE HALL MANAGER Gerald England M.D. LAB BLOOD ADD-ON Performing Organization Address City/[facility] Phon e Number [facility] - [address] [place], [place] [address] [facility] [place] [address] [facility] [address] [facility] Lipid Panel (02/01/2021 5:21 AM CONCERT OR LECTURE HALL MANAGER) athologist Signature Cholesterol, 157 mg/dL 02/01/2021 DTL Total 6:27 AM CONCERT OR LECTURE HALL MANAGER Comment: ----REFERENCE VALUE---- Desirable: < 200 Borderline high: 200 - 239 High: > or = 240 Triglycerides 107 mg/dL 02/01/2021 6:27 AM CONCERT OR LECTURE HALL MANAGER DTL Comment: ----REFERENCE VALUE---- Normal: <150 Borderline high: 150-199 High: 200-499 Very high: > or =500 Cholesterol, HDL, S 88 >=50 mg/dL 02/01/2021 6:27 AM CONCERT OR LECTURE HALL MANAGER DTL Calculated LDL 48 mg/dL 02/01/2021 6:27 AM CONCERT OR LECTURE HALL MANAGER DT L Comment: ----REFERENCE VALUE---- Desirable: <100 Above Desirable: 100-129 Borderline high: 130-159 High: 160-189 Very high: > or =190 Cholesterol, Non-HDL, Calculated 69 mg/dL 6:27 AM CONCERT OR LECTURE HALL MANAGER DTL Comment: ----REFERENCE VALUE---- Desirable: <130 Above Desirable: 130-159 Borderline high: 160-189 High: 190-219 Very high: > or =220 Specimen Anatomical Collection Method Collection Time Receive d Time (Source) Location / / Volume Laterality Blood (Blood, 02/01/2021 5:21 AM 02/02/20 5:52 Venous) CONCERT OR LECTURE HALL MANAGER AM CONCERT OR LECTURE HALL MANAGER Gerald England M.D. LAB BLOOD ADD-ON Performing Organization Address City/[facility] Phon e Number [facility] - [address] [place], [place] [address] [facility] [place] [address] [facility] [address] SW ECG 12 Lead (01/31/2021 11:35 PM CONCERT OR LECTURE HALL MANAGER) P athologist Signature Ventricular Rate 60 BPM MUSE ECG/Min FL Interval 170 ms MUSE QRSD Interval 88 ms MUSE QT Interval 434 ms MUSE QTC Interval 434 ms MUSE P [place] 31 degrees MUSE R [place] -16 degrees MUSE T Wave [place] 3 degrees MUSE Specimen Anatomical Collection Method Collection Time Receive d Time (Source) Location / / Volume Laterality 01/31/2021 11:35 02/01/2021 6:10 PM CONCERT OR LECTURE HALL MANAGER AM CONCERT OR LECTURE HALL MANAGER Impressions MUSE - 02/01/2021 6:10 AM CONCERT OR LECTURE HALL MANAGER Normal sinus rhythm Minimal voltage criteria for [...] Rapid POC, V Asymptomatic (01/31/2021 10:32 PM CONCERT OR LECTURE HALL MANAGER) [facility] gist Method Time Signature SARS Undetected Undetected 01/31/2021 DTLR Coronavirus-2 10:52 PM CONCERT OR LECTURE HALL MANAGER , RNA, Rapid POC, V Comment: Negative for SARS-CoV-2. The Cue COVID-19 test is a molecular shahzad t for SARS-CoV-2, the virus that causes COVID- 19. A Negative result means that the [employer] COV ID-19 test did not detect SARS-CoV-2 virus in your sample. Cue COVID-19 test uses the [employer] System. This test has received Emergency Use Authorization (EUA) by the U.S. Food and Drug Administration (FDA) and is used per man ufacturer instructions. Performance characteristic s were verified by [facility] in a manner consistent with CLIA requirements. Fact sheets for this Emerg ency Use Authorization (EUA) can be found at the following links: Providers: https://[employer]/documentation/prov iders.pdf Patients: https://[employer]/documentation/olayinka ents.pdf SARS Coronavirus 2, Source Nasopharynx DEFAULT 01/31/2021 10:52 PM CONCERT OR LECTURE HALL MANAGER DTLR Specimen Anatomical Collection Method Collection Time Receive d Time (Source) Location / / Volume Laterality Varies 01/31/2021 10:32 01/31/2021 (Nasopharynx) PM CONCERT OR LECTURE HALL MANAGER 10:32 PM CONCERT OR LECTURE HALL MANAGER Nan Rios M.D. LAB MICROBIOLOGY - GENERAL O RDERABLES Performing Organization Address City/State/ZIP Code Phon e Number PERFORMING LABS, REF [place] [address] INTERFACE Ref Interface [address] [facility] DT Performing Labs, [place] [address] Interface [address] [facility] Electrolyte (Chem 4) Panel (01/31/2021 9:44 PM CONCERT OR LECTURE HALL MANAGER) P athologist Signature Potassium, P 4.0 3.6 - 5.2 01/31/2021 STMA mmol/L 10:06 PM CONCERT OR LECTURE HALL MANAGER Sodium, P 137 135 - 145 01/31/2021 STMA mmol/L 10:06 PM CONCERT OR LECTURE HALL MANAGER Chloride, P 104 98 - 107 01/31/2021 STMA mmol/L 10:06 PM CONCERT OR LECTURE HALL MANAGER Bicarbonate, P 24 22 - 29 01/31/2021 STMA mmol/L 10:06 PM CONCERT OR LECTURE HALL MANAGER Anion Gap, P 9 7 - 15 01/31/2021 STMA 10:06 PM CONCERT OR LECTURE HALL MANAGER Specimen Anatomical Collection Method Collection Time Receive d Time (Source) Location / / Volume Laterality Blood (Blood, 01/31/2021 9:44 PM 02/01/20 21 9:56 Venous) CONCERT OR LECTURE HALL MANAGER PM CONCERT OR LECTURE HALL MANAGER Gerald England M.D. LAB BLOOD ADD-ON Performing Organization Address City/[facility] Phon e Number [facility] - [address] [place], [place] [address] [facility] [place] [address] Laboratories-[facility] [address] (ABNORMAL) Prothrombin Time (PT) (01/31/2021 9:44 PM CONCERT OR LECTURE HALL MANAGER) [facility] gist Method Time Signature Prothrombin 15.5 (H) 9.4 - 12.5 01/31/2021 DTL Time, P sec 10:27 PM CONCERT OR LECTURE HALL MANAGER INR 1.4 0.9 - 1.1 01/31/2021 DTL 10:27 PM CONCERT OR LECTURE HALL MANAGER Comment: ----ADDITIONAL INFORMATION---- Standard intensity warfarin therapeutic range: 2.0 to 3.0 ?? High intensity warfarin therapeutic rang e: 2.5 to 3.5 Specimen Anatomical Collection Method Collection Time Receive d Time (Source) Location / / Volume Laterality Blood (Blood, 01/31/2021 9:44 PM 02/01/20 Venous) CONCERT OR LECTURE HALL MANAGER 10:06 PM CONCERT OR LECTURE HALL MANAGER Gerald England M.D. LAB BLOOD ADD-ON Performing Organization Address City/[facility] Phon e Number [facility] - [address] APTT (Activated Partial Thromboplastin Time) (01/31/2021 9:44 PM CONCERT OR LECTURE HALL MANAGER) P athologist Signature Activated 35 25 - 37 sec 01/31/2021 DT Partial 10:27 PM CONCERT OR LECTURE HALL MANAGER Thrombopl Time, P Specimen Anatomical Collection Method Collection Time Receive d Time (Source) Location / / Volume Laterality Blood (Blood, 01/31/2021 9:44 PM 02/01/20 Venous) CONCERT OR LECTURE HALL MANAGER 10:06 PM CONCERT OR LECTURE HALL MANAGER Gerald England M.D. LAB BLOOD ADD-ON Performing Organization Address City/[facility] Phon e Number [facility] - [address] (ABNORMAL) Hemoglobin A1c (01/31/2021 9:44 PM CONCERT OR LECTURE HALL MANAGER) P athologist Signature Hemoglobin A1c, 6.1 (H) 4.0 - 5.6 01/31/2021 DTL B % 10:18 PM CONCERT OR LECTURE HALL MANAGER Comment: Hemoglobin A1c values of 5.7-6.4 percent indicate an increased risk for developing diabetes henrry skinner. In diabetic patients, HbA1c goals should be discussed with healthcare provider. Specimen Anatomical Collection Method Collection Time Receive d Time (Source) Location / / Volume Laterality Blood (Blood, 01/31/2021 9:44 PM 03/06/20 21 Venous) CONCERT OR LECTURE HALL MANAGER 10:06 PM CONCERT OR LECTURE HALL MANAGER Gerald England M.D. LAB BLOOD ADD-ON Performing Organization Address City/State/ZIP Code Phon e Number [facility] - [address] [place], [place] [address] [facility] [place] [address] Laboratories-[facility] [address] [facility] (ABNORMAL) CBC with Differential, Blood (01/31/2021 9:44 PM CONCERT OR LECTURE HALL MANAGER) [facility] Method Time Signature Hemoglobin 11.1 (L) 11.6 - 01/31/2021 DTL 15.0 g/dL 10:12 PM CONCERT OR LECTURE HALL MANAGER Hematocrit 34.9 (L) 35.5 - 01/31/2021 DTL 44.9 % 10:12 PM CONCERT OR LECTURE HALL MANAGER Erythrocytes 3.84 (L) 3.92 - 01/31/2021 DTL 5.13 10:12 PM CONCERT OR LECTURE HALL MANAGER x10(12)/L MCV 90.9 78.2 - 01/31/2021 DTL 97.9 fL 10:12 PM CONCERT OR LECTURE HALL MANAGER RBC Distrib Width 14.4 12.2 - 01/31/2021 DTL 16.1 % 10:12 PM CONCERT OR LECTURE HALL MANAGER Platelet Count 326 157 - 371 01/31/2021 DTL x10(9)/L 10:12 PM CONCERT OR LECTURE HALL MANAGER Leukocytes 6.8 3.4 - 9.6 01/31/2021 DTL x10(9)/L 10:12 PM CONCERT OR LECTURE HALL MANAGER Neutrophils 4.91 1.56 - 01/31/2021 DTL 6.45 10:12 PM CONCERT OR LECTURE HALL MANAGER x10(9)/L Lymphocytes 1.52 0.95 - 01/31/2021 DTL 3.07 10:12 PM CONCERT OR LECTURE HALL MANAGER x10(9)/L Monocytes 0.34 0.26 - 01/31/2021 DTL 0.81 10:12 PM CONCERT OR LECTURE HALL MANAGER x10(9)/L Eosinophils 0.03 0.03 - 01/31/2021 DTL 0.48 10:12 PM CONCERT OR LECTURE HALL MANAGER x10(9)/L Basophils 0.03 0.01 - 01/31/2021 DTL 0.08 10:12 PM CONCERT OR LECTURE HALL MANAGER x10(9)/L Specimen Anatomical Collection Method Collection Time Receive d Time (Source) Location / / Volume Laterality Blood (Blood, 01/31/2021 9:44 PM 02/01/20 21 Venous) CONCERT OR LECTURE HALL MANAGER 10:06 PM CONCERT OR LECTURE HALL MANAGER Gerald England M.D. LAB BLOOD ADD-ON Performing Organization Address City/State/ZIP Code Phon e Number [facility] - [address] [place], [place] [address] [facility] [place] [place] [address] [facility] [address] [facility] S-TSH (Thyroid-Stimulating Hormone - Sensitive) (01/31/2021 9:44 PM CONCERT OR LECTURE HALL MANAGER) P athologist Signature TSH, Sensitive 0.3 0.3 - 4.2 01/31/2021 DTL mIU/L 10:59 PM CONCERT OR LECTURE HALL MANAGER Specimen Anatomical Collection Method Collection Time Receive d Time (Source) Location / / Volume Laterality Blood (Blood, 01/31/2021 9:44 PM 02/01/20 21 Venous) CONCERT OR LECTURE HALL MANAGER 10:06 PM CONCERT OR LECTURE HALL MANAGER Gerald England M.D. LAB BLOOD ADD-ON Performing Organization Address City/State/ZIP Code Phon e Number [facility] - [address] [place], [place] [address] [facility] [place] [place] [address] [place] [address] [facility] AST (Aspartate Aminotransferase) (01/31/2021 9:44 PM CONCERT OR LECTURE HALL MANAGER) [facility] Method Time Signature Aspartate 23 8 - 43 01/31/2021 DTL Aminotransferase U/L 10:59 PM CONCERT OR LECTURE HALL MANAGER (AST), S Specimen Anatomical Collection Method Collection Time Receive d Time (Source) Location / / Volume Laterality Blood (Blood, 01/31/2021 9:44 PM 02/01/20 21 Venous) CONCERT OR LECTURE HALL MANAGER 10:06 PM CONCERT OR LECTURE HALL MANAGER Gerald England M.D. LAB BLOOD ADD-ON Performing Organization Address City/State/ZIP Code Phon e Number [facility] - [address] [place], [place] [address] [facility] [place], [place] [id number] [place] [address] [facility] ALT (Alanine Aminotransferase) (01/31/2021 9:44 PM CONCERT OR LECTURE HALL MANAGER) [facility] Method Time Signature Alanine 15 7 - 45 01/31/2021 DTL Aminotransferase U/L 10:59 PM CONCERT OR LECTURE HALL MANAGER (ALT), S Specimen Anatomical Collection Method Collection Time Receive d Time (Source) Location / / Volume Laterality Blood (Blood, 01/31/2021 9:44 PM 02/01/20 21 Venous) CONCERT OR LECTURE HALL MANAGER 10:06 PM CONCERT OR LECTURE HALL MANAGER Gerald England M.D. LAB BLOOD ADD-ON Performing Organization Address City/State/ZIP Code Phon e Number [facility] - [address] [place], [place] [address] [facility] [place] [place] [address] Laboratories-[facility] [address] documented in this encounter Visit Diagnoses Diagnosis Stroke (HCC) Chronic Pain Syndrome Stroke Cerebrovascular Accident Personal History documented in this encounter Admitting Diagnoses Diagnosis Stroke (HCC) documented in this encounter Administered Medications Inactive Administered Medications - up to 3 most recent administrations Medication Order MAR Action Action Date Dose Rate Site acetaminophen tablet 1,000 mg Given 02/03/2021 6:56 AM CONCERT OR LECTURE HALL MANAGER 1,000 mg (TYLENOL) 1,000 mg, oral, Every 6 hours PRN, mild pain or score 1-3 of 10, moderate pain or score 4-6 of 10, headaches, Starting on 02/01/21 at 0210 Given 02/02/2021 2:36 PM CONCERT OR LECTURE HALL MANAGER 1,000 mg Given 02/02/2021 8:53 AM CONCERT OR LECTURE HALL MANAGER 1,000 mg albuterol 90 mcg/actuation inhaler 2 puf f Given 02/03/2021 4:29 AM CONCERT OR LECTURE HALL MANAGER 2 puffs 2 puff, inhalation, Every 6 hours PRN, wheezing, shortness of breath, Starting on 02/01/21 at 1115 apixaban tablet 5 mg (ELIQUIS) Given 02/03/2021 9:30 AM CONCERT OR LECTURE HALL MANAGER 5 mg 5 mg, oral, 2 times daily, First dose on 02/02/21 at 2100 Given 02/02/2021 8:09 PM CONCERT OR LECTURE HALL MANAGER 5 mg aspirin tablet 325 mg Given 02/02/2021 8:11 AM CONCERT OR LECTURE HALL MANAGER 325 mg 325 mg, oral, Daily, First dose on 02/01/21 at 1030 Given 02/01/2021 10:54 AM CONCERT OR LECTURE HALL MANAGER 325 mg atorvastatin tablet 40 mg (LIPITOR) Given 02/02/2021 8:09 PM CONCERT OR LECTURE HALL MANAGER 40 mg 40 mg, oral, Daily at [...] 25 m cg Given 02/03/2021 9:29 AM CONCERT OR LECTURE HALL MANAGER 25 mcg 25 mcg, oral, Daily, First dose on 02/01/21 at 0900, cholecalciferol (vitamin D3) orderable was interchanged for cholecalciferol (vitamin D3) tablet/capsule Given 02/02/2021 8:10 AM CONCERT OR LECTURE HALL MANAGER 25 mcg Given 02/01/2021 9:11 AM CONCERT OR LECTURE HALL MANAGER 25 mcg cyanocobalamin tablet 2,000 mcg (VITAMIN Given 02/03/2021 9: 28 AM CONCERT OR LECTURE HALL MANAGER 2,000 mcg B12) 2,000 mcg, oral, Daily, First dose on 02/01/21 at 0900 Given 02/02/2021 8:08 AM CONCERT OR LECTURE HALL MANAGER 2,000 mcg Given 02/01/2021 9:11 AM CONCERT OR LECTURE HALL MANAGER 2,000 mcg diazePAM tablet 10 mg (VALIUM) Given 02/03/2021 10:51 AM CONCERT OR LECTURE HALL MANAGER 10 mg 10 mg, oral, 2 times daily PRN, anxiety, Starting on 02/01/21 at 1016 Given 02/02/2021 10:24 PM CONCERT OR LECTURE HALL MANAGER 10 mg Given 02/02/2021 8:53 AM CONCERT OR LECTURE HALL MANAGER 10 mg docusate sodium 283 mg/5 mL enema 1 enem a (ENEMEEZ) 1 enema, rectal, 2 times daily PRN, cons tipation, Starting on 01/31/21 at 2125, If no bowel movement within 24 hours of starting bisac odyl FLUoxetine capsule 80 mg (PROzac) Given 02/03/2021 9:28 AM CONCERT OR LECTURE HALL MANAGER 80 mg 80 mg, oral, Daily, First dose on 02/01/21 at 0900, FLUoxetine orderable was interchanged for FLUoxetine tablet/capsule Given 02/02/2021 8:10 AM CONCERT OR LECTURE HALL MANAGER 80 mg Given 02/01/2021 9:10 AM CONCERT OR LECTURE HALL MANAGER 80 mg folic acid tablet 800 mcg Given 02/03/2021 9:29 AM CONCERT OR LECTURE HALL MANAGER 800 mcg 800 mcg, oral, Every morning, First dose on Tue02/01/21 at 0900 Given 02/02/2021 8:14 AM CONCERT OR LECTURE HALL MANAGER 800 mcg Given 02/01/2021 10:00 AM CONCERT OR LECTURE HALL MANAGER 800 mcg furosemide tablet 40 mg (LASIX) Given 02/03/2021 9:29 AM CONCERT OR LECTURE HALL MANAGER 40 mg 40 mg, oral, 2 times daily, First dose on Tue02/02/21 at 0900 Given 02/02/2021 6:25 PM CONCERT OR LECTURE HALL MANAGER 40 mg Given 02/02/2021 8:10 AM CONCERT OR LECTURE HALL MANAGER 40 mg gadobutrol injection 0.01-30 mL (GADAVIS T) Given 02/03/2021 12:35 PM CONCERT OR LECTURE HALL MANAGER 8 mL 0.01-30 mL, intravenous, Once in imaging, contrast, Starting on Tue02/03/21 at 1235, For 1 dose, Imaging Protocol Orders, Dose per Radiant Medication Guidelines heparin (porcine) Given 02/02/2021 6:29 AM CONCERT OR LECTURE HALL MANAGER 5,000 Units Left Lower Abdomen injection 5,000 Units 5,000 Units, subcutaneous, Every 8 hours scheduled, First dose on Tue02/01/21 at 0600 Given 02/01/2021 9:17 PM CONCERT OR LECTURE HALL MANAGER 5,000 Units Right Lower Abdomen Given 02/01/2021 1:56 PM CONCERT OR LECTURE HALL MANAGER 5,000 Units Right Lower Abdomen lamoTRIgine tablet 200 mg (LaMICtal) Given 02/03/2021 9:29 AM CONCERT OR LECTURE HALL MANAGER 200 mg 200 mg, oral, 2 times daily, First dose (after last modification) on 01/31/21 at 2245 Given 02/02/2021 8:09 PM CONCERT OR LECTURE HALL MANAGER 200 mg Given 02/02/2021 8:11 AM CONCERT OR LECTURE HALL MANAGER 200 mg lidocaine 5 % 1 patch Medication Applied 01/31/2021 10:44 PM 1 patch Upper Back (LIDODERM) CONCERT OR LECTURE HALL MANAGER 1 patch, transdermal, Administer over 12 Hours, Daily, First dose on 01/31/21 at 2200, Remove after 12 hours. lidocaine 5 % ointment 1 application Given 02/02/2021 2:33 A M CONCERT OR LECTURE HALL MANAGER 1 application (XYLOCAINE) 1 application, topical, 3 times daily PRN, mild pain or score 1-3 of 10, Starting on Tue02/01/21 at 1114, MAX of 20 g of ointment/day Given 02/01/2021 5:18 PM CONCERT OR LECTURE HALL MANAGER 1 application loratadine tablet 10 mg (CLARITIN) Given 02/03/2021 9:30 AM CONCERT OR LECTURE HALL MANAGER 10 mg 10 mg, oral, Daily, First dose on Tue02/01/21 at 0900, loratadine 10 mg oral daily was interchanged for cetirizine 5 mg oral twice daily Given 02/02/2021 8:11 AM CONCERT OR LECTURE HALL MANAGER 10 mg Given 02/01/2021 9:12 AM CONCERT OR LECTURE HALL MANAGER 10 mg magnesium oxide tablet 400 mg (MAG-OX) Given 02/02/2021 8:09 PM CONCERT OR LECTURE HALL MANAGER 400 mg 400 mg, oral, Daily at bedtime, First dose on Tue02/01/21 at 2100, magnesium oxide 400 mg daily was interchanged for magnesium gluconate 500 mg daily Given 02/01/2021 9:17 PM CONCERT OR LECTURE HALL MANAGER 400 mg meclizine tablet 25 mg (ANTIVERT) Given 02/02/2021 3:01 AM CONCERT OR LECTURE HALL MANAGER 25 mg 25 mg, oral, 3 times daily PRN, dizziness, Starting on Tue02/01/21 at 0211 Given 02/01/2021 9:19 AM CONCERT OR LECTURE HALL MANAGER 25 mg meclizine tablet 25 mg (ANTIVERT) Given 02/02/2021 8:09 PM CONCERT OR LECTURE HALL MANAGER 25 mg 25 mg, oral, 4 times [...] 1 patch Left Shoulder patch (NICODERM CQ) CONCERT OR LECTURE HALL MANAGER 1 patch, transdermal, Administer over 24 Hours, Daily, First dose on Tue02/01/21 at 0900 Medication Applied 02/02/2021 8:14 AM CONCERT OR LECTURE HALL MANAGER 1 patch Right Arm Medication Applied 02/01/2021 9:13 AM CONCERT OR LECTURE HALL MANAGER 1 patch Left Shoulder nicotine 21 mg/24 hr 1 Medication Applied 02/03/2021 2:55 PM 1 patch Left Shoulder patch (NICODERM CQ) CONCERT OR LECTURE HALL MANAGER 1 patch, transdermal, Administer over 24 Hours, Daily, First dose on Tue02/03/21 at 1330 ondansetron ODT disintegrating tablet 4 mg Given 02/02/2021 10:2 4 PM CONCERT OR LECTURE HALL MANAGER 4 mg (ZOFRAN-ODT) 4 mg, oral, Every 8 hours PRN, nausea, Starting on 01/31/21 at 2228, When splitting ODT at bedside, handle with gloves and a pill splitter to prevent moisture contact. Given 02/02/2021 2:36 PM CONCERT OR LECTURE HALL MANAGER 4 mg Given 02/01/2021 1:12 AM CONCERT OR LECTURE HALL MANAGER 4 mg oxyCODONE IR tablet 10 mg (ROXICODONE) Given 02/03/2021 5:02 PM CONCERT OR LECTURE HALL MANAGER 10 mg 10 mg, oral, Every 6 hours PRN, moderate pain or score 4-6 of 10, Starting on 01/31/21 at 2229 Given 02/03/2021 2:42 AM CONCERT OR LECTURE HALL MANAGER 10 mg Given 02/02/2021 8:08 PM CONCERT OR LECTURE HALL MANAGER [address] tablet 40 mg (PROTONIX) Given 02/03/2021 4:58 PM CONCERT OR LECTURE HALL MANAGER 40 mg 40 mg, oral, 2 times daily before breakfast and dinner, First dose on 02/01/21 at 0700, pantoprazole 40 mg oral twice daily was interchanged for esomeprazole 20 or 40 mg oral twice daily Swallow whole. Do NOT crush, chew, or split tablet. Given 02/03/2021 6:56 AM CONCERT OR LECTURE HALL MANAGER 40 mg Given 02/02/2021 6:25 PM CONCERT OR LECTURE HALL MANAGER 40 mg pregabalin capsule 150 mg (LYRICA) Given 02/01/2021 9:12 AM CONCERT OR LECTURE HALL MANAGER 150 mg 150 mg, oral, Every morning, First dose on 02/01/21 at 0900 pregabalin capsule 300 mg (LYRICA) Given 01/31/2021 11:16 PM CONCERT OR LECTURE HALL MANAGER 300 mg 300 mg, oral, Every evening, First dose on 01/31/21 at 2300 pregabalin capsule 300 mg (LYRICA) Given 02/03/2021 9:28 AM CONCERT OR LECTURE HALL MANAGER 300 mg 300 mg, oral, Every morning, First dose (after last modification) on 02/02/21 at 0900 Given 02/02/2021 8:10 AM CONCERT OR LECTURE HALL MANAGER 300 mg pregabalin capsule 600 mg (LYRICA) Given 02/02/2021 8:09 PM CONCERT OR LECTURE HALL MANAGER 600 mg 600 mg, oral, Daily at bedtime, First dose (after last modification) on 02/01/21 at 2100 Given 02/01/2021 9:17 PM CONCERT OR LECTURE HALL MANAGER 600 mg promethazine injection 6.25 mg (PHENERGA N) Given 02/01/2021 12:47 PM CONCERT OR LECTURE HALL MANAGER 6.25 mg 6.25 mg, intravenous, Once, On 02/01/21 at 1030, For 1 dose QUEtiapine tablet 50 mg (SEROquel) Given 02/03/2021 12:39 AM CONCERT OR LECTURE HALL MANAGER 50 mg 50 mg, oral, Bedtime PRN, agitation/sleep, Starting on 02/01/21 at 1310 rOPINIRole tablet 2 mg (REQUIP) Given 02/03/2021 2:42 AM CONCERT OR LECTURE HALL MANAGER 2 mg 2 mg, oral, Daily PRN, restless legs, Starting on 01/31/21 at 2233 sennosides-docusate sodium 8.6-50 mg per Given 02/03/2021 9: 27 AM CONCERT OR LECTURE HALL MANAGER 2 tablets tablet 2 tablet (SENOKOT-S) 2 [...] 300 mg (ZONEGRAN) Given 02/03/2021 9:28 AM CONCERT OR LECTURE HALL MANAGER 300 mg 300 mg, oral, 2 times daily, First dose (after last modification) on 01/31/21 at 2245, Swallow whole. Do NOT crush, chew or open capsule. Given 02/02/2021 8:09 PM CONCERT OR LECTURE HALL MANAGER 300 mg Given 02/02/2021 8:53 AM CONCERT OR LECTURE HALL MANAGER 300 mg documented in this encounter Active and Recently Administered Medications Times are shown in CONCERT OR LECTURE HALL MANAGER. Scheduled Medication Order 02/01/2021 02/02/2021 02/03/2021 apixaban tablet 5 mg (ELIQUIS) 2008 (Given - Pro vider: Marlene Grover R.N.) 1287 (Given - Provider: Karma Cervantes R.N.) 5 [...] R.NBritton) 1 application, topical, 3 times daily [place] N, mild pain or score 1-3 of [...] Leatha Vasquez R.N.)2007 (Given - Provider: Marlene Grvoer R.N.) 0242 (Given - Provider: Marlene Grover [...] COVID19 Pending 01/31/2021 01/31/2021 01/31/2021 10:53 PM CONCERT OR LECTURE HALL MANAGER Assessment Noted Time PHQ-9 Depression Total Score: 23 02/02/2021 11:[address] documented as of this encounter
--- OUTSIDE RECORDS SUMMARY | 2022-08-08 23:05 | XMS_ITS | Encounter Summary ---
:1965 Author Organization [facility] Address [address] [place] [address] Care Team Providers Name Role Phone Unavailable Primary Care Provider Unavailable Encounter Details Date Type Department Care Team Description 01/20/2021 Anticoagulation Visit Department of Neurology Elvira Villalta in [facility] raúl SkaggsNBritton [address] [facility] [address] [place] [phone] Social History Tobacco Use Types Packs/Day Years [...] you attend yazidi or Patient refused 2021 adventist services? Do [...] call from Dr. Rosalva Aguila's nurse at [facility]. She states they have received our fax [...] Transfer of anticoagulation management back to PCP. 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
--- OUTSIDE RECORDS SUMMARY | 2022-08-08 23:05 | XMS_ITS | Encounter Summary ---
:1965 Author Organization [facility] Address [address] [place] [address] Care Team Providers Name Role Phone Unavailable Primary Care Provider Unavailable Reason for Visit Reason Comments Follow-up [facility] Patient Encounter Details Date Type Department Care Team Description 12/29/2020 Clinical [facility] Neurology jimmy Celaya M.D. Patient) Scott, [facility] [address] [place], [place] [address] [place] [address] [place], [place] [phone] (Work) [phone] Social History Tobacco Use Types Packs/Day Years [...] you attend sabianist or Patient refused 2021 yarsanism services? Do [...] her know PCP needs to prescribe meclizine. CH CLEANER Telephone Encounter - Allyssa Amaya - 12/29/2020 [...] ambulance for; one of which lasted over svf-hkt-a-half days. She is having headaches, etc. 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
--- OUTSIDE RECORDS SUMMARY | 2022-08-08 23:05 | XMS_ITS | Encounter Summary ---
:1965 Author Organization [facility] Address [address] [place] [address] Care Team Providers Name Role Phone Unavailable Primary Care Provider Unavailable Reason for Visit Outpatient (Routine) - Closed Specialty Diagnoses / Procedures Referred By Contact Refer red To Contact Video Medicine Diagnoses Stroke Cerebrovascular Accident Personal History Robert Diehl [place] M.D. [address] [place] [address] Referral ID Status Reason Start Date Expiration Date Visits Requ ested Visits Authorized [id number] Closed 12/30/2020 12/30/2021 1 1 Encounter Details Date Type Department Care Team Description 02/02/2021 Virtual Visit Department of Robert Diehl Stroke Cere brovascular Neurology jimmy Celaya M.D. Accident Personal [place], [place] 200 [facility] History 200 [place] [phone] Social History Tobacco Use Types Packs/Day Years [...] 05/17/2022 organizations such as latter-day groups, unions, fraGoPago or athletic groups, or school groups? How [...] department over the weekend was transferred to [facility] service where she is currently admitted. Therefore she will not be present for today's 8:00 a.m. Outpatient consultation. Highly appreciative of the [facility] Stroke Service cares. No charge. Electronically signed by: Robert Diehl M.D. 02/02/21 7:46 AM CALCULUS TEACHER ULUS TEACHER documented in this encounter Plan of Treatment Not on filedocumented as of this encounter Visit Diagnoses Diagnosis Stroke Cerebrovascular Accident Personal History documented in this encounter Additional Health Concerns Assessment Noted Time PHQ-9 Depression Total Score: 23 02/02/2021 11:[address] documented as of this encounter
--- OUTSIDE RECORDS SUMMARY | 2022-08-08 23:05 | XMS_ITS | Encounter Summary ---
:1965 Author Organization [facility] Address [address] [place] [address] Care Team Providers Name Role Phone Unavailable Primary Care Provider Unavailable Reason for Referral Outpatient (Routine) - Closed Specialty Diagnoses / Procedures Referred By Contact Clyde bains To Contact Neurology Robert Diehl M. D. [facility] [address] [place] [address] Referral ID Status Reason Start Date Expiration Date Visits Requ ested Visits Authorized [id number] Closed 09/15/2020 09/15/2021 1 1 Reason for Visit Appointment Request (Routine) - Closed Specialty Diagnoses / Procedures Referred By Contact Clyde bains To Contact Neurology Referral ID Status Reason Start Date Expiration Date Visits Requ ested Visits Authorized [id number] Closed 07/31/2020 07/31/2021 1 1 Encounter Details Date Type Department Care Team Description 09/15/2020 Virtual Visit Department of Robert Diehl Berry An eurysm Nonruptured (HCC) (Primary Dx); Neurology in M.D. Nicotine Dependence ; [place], [place] [address] [place] Aneurysm Cerebral Unruptured (HCC) [address] [place] [phone] Social History Tobacco Use Types Packs/Day Years [...] you attend buddhist or Patient refused 2021 restorationist services? Do [...] via the telephone and not in a vmov-lf-rrok manner. Ms. Mosquera is a 55-year-old woman [...] Name Type Priority Associated Diagnoses Order S [facility] Neurology office Outpatient Referral Routine Expe [...] nt right vertebral artery. RADHA, MCA, and cmo & president are patent. Neck MRA: Conventional three-vessel arch [...] nt right vertebral artery. RADHA, MCA, and cmo & president are patent. Neck MRA: Conventional three-vessel arch [...]
--- OUTSIDE RECORDS SUMMARY | 2022-08-08 23:05 | XMS_ITS | Encounter Summary ---
:1965 Author Organization [facility] Address [address] [place] [address] Care Team Providers Name Role Phone Unavailable Primary Care Provider Unavailable Encounter Details Date Type Department Care Team Description 08/06/2020 Clinical Communication Department of Honorio, Otorhinolaryngology in Carole Manuel [place], [place] [address] [place] [address] [facility] [phone] Social History Tobacco Use Types Packs/Day Years [...] you attend voodoo or Patient refused 2021 orthodox services? Do [...] states that she had them done at [facility]. I called the facility and [...] she had a CT Scan today in [place]. If her doctor there feels she needs [...]
--- OUTSIDE RECORDS SUMMARY | 2022-08-08 23:05 | XMS_ITS | Encounter Summary ---
:1965 Author Organization [facility] Address [address] [place] [address] Care Team Providers Name Role Phone Unavailable Primary Care Provider Unavailable Reason for Visit Reason Comments Tahmina/Fazal Encounter Details Date Type Department Care Team Description 01/26/2021 Clinical Communication Department of Robert Diehl W8B/Scharf Neurology in .. [place], [place] 200 [facility] 200 [place] [phone] Social History Tobacco Use Types Packs/Day Years [...] you attend catholic or Patient refused 2021 sabianist services? Do [...] 01/26/2021 5:19 PM CST Great thank you F AIRPORT GUIDE Addendum Note - Robert Diehl M.D. - 01/26/2021 2:50 PM CHIEF AIRPORT GUIDE Addended by: ROBERT DIEHL on: 01/26/2021 02:50 PM Modules accepted: Orders F AIRPORT GUIDE Telephone Encounter - Robert Diehl M.D. - 01/26/2021 2:49 PM CST Believe MRI is ordered now. F AIRPORT GUIDE Telephone Encounter - Robert Diehl M.D. - 01/26/2021 2:47 PM CST I am sorry to learn of the patient's additional symptoms Unfortunately we cannot react as quickly as the emergency department which was recommended locally I will order a brain MRI and in-person or video visit to follow-up. Thank you F AIRPORT GUIDE Telephone Encounter - Allyssa Amaya - 01/26/2021 12:56 PM CST Patient calls checking the status of this request. Thank you. F AIRPORT GUIDE documented in this encounter Plan of Treatment Not on filedocumented as of this encounter Visit Diagnoses Diagnosis Stroke Cerebrovascular Accident Personal History - Primary documented in this encounter Additional Health Concerns Assessment Noted Time PHQ-9 Depression Total Score: 5 04/05/2019 8:00 AM CDT documented as of this encounter
--- OUTSIDE RECORDS SUMMARY | 2022-08-08 23:05 | XMS_ITS | Encounter Summary ---
:1965 Author Organization [facility] Address [address] [place] [address] Care Team Providers Name Role Phone Unavailable Primary Care Provider Unavailable Encounter Details Date Type Department Care Team Description 02/02/2021 Orders Only Department of Neurology in Bisi Acevedo D.O. [place], [place] 200 [facility] 200 [place] [phone] (Wo rk) Social History Tobacco Use Types [...]
--- OUTSIDE RECORDS SUMMARY | 2022-08-08 23:05 | XMS_ITS | Encounter Summary ---
:1965 Author Organization [facility] Address [address] [place] [address] Care Team Providers Name Role Phone Unavailable Primary Care Provider Unavailable Encounter Details Date Type Department Care Team Description 01/20/2021 Clinical Communication Department of Elvria Villalta, Neurology in [place], [place] [address] [place] [address] [address] [place] [phone] Social History Tobacco Use Types Packs/Day Years [...] you attend holiness or Patient refused 2021 zoroastrian services? Do [...]
--- OUTSIDE RECORDS SUMMARY | 2022-08-08 23:05 | XMS_ITS | Encounter Summary ---
:1965 Author Organization [facility] Address [address] [place] [address] Care Team Providers Name Role Phone Unavailable Primary Care Provider Unavailable Encounter Details Date Type Department Care Team Description 01/16/2021 Anticoagulation Visit Department of Elvira Villalta ([facility]) (Primary Dx); Neurology in [facility] Anticoagulant Treatment [address] [place] [address] [place], [place] [phone] (Work) [phone] Social History Tobacco Use Types Packs/Day Years [...] attend roman catholic or Patient refused 2021 amish services? Do [...] [facility] INR 2.0-3.[address] Argenis Diehl ([phone]). The patient was scheduled for an INR recheck on 01/19/21 but we received a message that she had it drawn today, 01/16/21, by [facility] Nurse. I spoke with RADHA Roman [facility] and she relays that the home POC INR today is 3.9. I discussed this with Dr. Argenis Diehl ([phone]) who advises that the patient follow a [...] her primary care provider, Dr. Neri Blackwell, [facility], [place], [place]. I have put in a call for Dr. Blackwell's care team to call us back. Will schedule an INR recheck for 01/20/21. I will fax a standing INR order to RADHA Roman, [facility], phone # [phone], fax #[phone]. She will fax results back to us. [...] PHONE CALL. Test results, symptom assessment. GER MARKET DEVELOPMENT documented in this encounter Plan of Treatment Not on filedocumented as of this encounter Procedures Procedure Name Priority Date/Time Associated Comments Diagnosis PROTHROMBIN TIME Routine 01/16/2021 2:10 PM Resul ts for this (PT), P MANAGER MARKET DEVELOPMENT procedure are i n the results section. documented in this encounter Results Prothrombin Time (PT) (01/16/2021 2:10 PM MANAGER MARKET DEVELOPMENT) P athologist Signature EXT INR 3.90 OTHER (SPECIFY IN DIRECTOR OF BUSINESS SYSTEMS) Specimen (Source) Anatomical Collection Method Collection Time Re ceived Time Location / / Volume Laterality Blood (Blood, 01/16/2021 2:10 PM Venous) MANAGER MARKET DEVELOPMENT Resulting Agency Comment [facility] Historical Provider LAB BLOOD ADD-ON Performing Organization Address City/State/ZIP Code Phon e Number OTHER (SPECIFY IN DIRECTOR OF BUSINESS SYSTEMS) OTHER (SPECIFY IN DIRECTOR OF BUSINESS SYSTEMS) N/A documented in this encounter Visit Diagnoses Diagnosis Stroke (HCC) - Primary Nursing Home (Current) Anticoagulant Treatm ent documented in this encounter Additional Health Concerns Assessment Noted Time PHQ-9 Depression Total Score: 5 04/05/2019 8:00 AM CDT documented as of this encounter
--- OUTSIDE RECORDS SUMMARY | 2022-08-08 23:05 | XMS_ITS | Encounter Summary ---
:[address] [facility] Address [address] [place] [address] Care Team Providers Name Role Phone Unavailable Primary Care Provider Unavailable Encounter Details Date Type Department Care Team Description 01/05/2021 Anticoagulation Visit Department of Neurology Elvira Villalta in [facility] potash flaker RBrittonNBritton 1216 [facility] [address] [place] [phone] Social History Tobacco Use Types Packs/Day Years [...] you attend anglican or Patient refused 2021 mu-ism services? Do [...] an INR at her outside clinic in [place], [place] today and I called the lab [phone] and was told she did not report [...] advised for today, she report to the [place] lab as scheduled. Ms. Mosquera states she will do that. RECOMMENDED LEVEL OF CARE. The patient/caller is willing and able to follow the nurse's recommendation. RESPONSE TO ADVICE GIVEN. Patient/caller able to teach back. REFERENCES UTILIZED. Nursing clinical judgment utilized. Other interventions or information: Provider advice. TYPE OF PHONE CALL. INR management ING MACHINE MECHANIC Elvira Villalta R.N. - 01/05/2021 4:06 PM CST Patient's INR today is 1.47. Discussed with Dr. Neri Acevedo ([phone]) who advises that the patient take 7.5 [...] CALL. Test results, symptom assessment. ING MACHINE MECHANIC documented in this encounter Plan of Treatment Not on filedocumented as of this encounter Procedures Procedure Name Priority Date/Time Associated Comments Diagnosis PROTHROMBIN TIME Routine 01/05/2021 3:15 PM Resul ts for this (PT), P MILKING MACHINE MECHANIC procedure are i n the results section. documented in this encounter Results Prothrombin Time (PT) (01/05/2021 3:15 PM MILKING MACHINE MECHANIC) P athologist Signature EXT INR 1.47 OTHER (SPECIFY IN ENGINEERING SCIENTIST) Specimen (Source) Anatomical Collection Method Collection Time Re ceived Time Location / / Volume Laterality Blood (Blood, 01/05/2021 3:15 PM Venous) MILKING MACHINE MECHANIC Narrative This result has an attachment that is no t available. Resulting Agency Comment [facility] Historical Provider LAB BLOOD ADD-ON Performing Organization Address City/State/ZIP Code Phon e Number OTHER (SPECIFY IN ENGINEERING SCIENTIST) OTHER (SPECIFY IN ENGINEERING SCIENTIST) N/A documented in this encounter Visit Diagnoses Not on filedocumented in this encounter Additional Health Concerns Assessment Noted Time PHQ-9 Depression Total Score: 5 04/05/2019 8:00 AM CDT documented as of this encounter
--- OUTSIDE RECORDS SUMMARY | 2022-08-08 23:05 | XMS_ITS | Encounter Summary ---
:1965 Author Organization [facility] Address [address] [place] [address] Care Team Providers Name Role Phone Unavailable Primary Care Provider Unavailable Reason for Referral MRI/CAT/PET Scan (Routine) - Closed Specialty Diagnoses / Procedures Referred By Contact Refer red To Contact Radiology Diagnoses Robert Akhtar M.D. [facility] Procedures CT Head Neck Angiogram with IV Contrast [address] [place], [place] [address] Referral ID Status Reason Start Date Expiration Date Visits Requ ested Visits Authorized [id number] Closed 12/31/2020 12/31/2021 1 1 ING ASSISTANT Reason for Visit MRI/CAT/PET Scan (Routine) - Closed Specialty Diagnoses / Procedures Referred By Contact Refer red To Contact Radiology Diagnoses Ataxia Robert Diehl M.D. [facility] Procedures CT Head Neck Angiogram with IV Contrast [address] [place], [place] [address] Referral ID Status Reason Start Date Expiration Date Visits Requ ested Visits Authorized [id number] Closed 12/31/2020 12/31/2021 1 1 Encounter Details Date Type Department Care Team Description 01/30/2021 Hospital Encounter Department of Radiology, Akhil Diehl Ataxia [facility], in M.D. [place], [place] [address] [facility] [address] [place] [phone] (Babatunde billings) Social History Tobacco Use Types [...] you attend anabaptist or Patient refused 2021 presybeterian services? Do [...] this ANGIOGRAM WITH IV (most inpatients PM LOGGING ASSISTANT proced ure are in CONTRAST and all the results outpatients) section. documented in this encounter Results CT Head Neck Angiogram with IV Contrast (01/30/2021 3:24 PM LOGGING ASSISTANT) Anatomical Region Laterality Modality Head and Neck, Neuroradiology RST LOS, N/A C omputed Tomography, Computed Neuroradiology ARZ LOS, Neuroradiology T omography FLA [facility] Specimen (Source) Anatomical Collection Method Collection Time Re ceived Time Location / / Volume Laterality 01/30/2021 2:25 PM LOGGING ASSISTANT Impressions 01/30/2021 3:18 PM LOGGING ASSISTANT 1. 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 Slightly decreased high-grade stenosis a t the V3/4 junction with increased flow in the distal V4 segment. 2. Evolving, now chronic right cerebella r infarct. 3. 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 Narrative 01/30/2021 3:18 PM LOGGING ASSISTANT EXAM: CT HEAD NECK ANGIOGRAM WITH IV [...] normal caliber bilater al MCAs, ACAs and psychologist personnel. Patent anterior and right posterior communicating arteri [...] normal caliber bilater al MCAs, ACAs and psychologist personnel. Patent anterior and right posterior communicating arteri [...] mg iodine/mL solution Given 01/30/2021 2:29 PM LOGGING ASSISTANT 1 00 mL 1-200 mL (OMNIPAQUE) 1-200 mL, intravenous, Once in imaging, contrast, Starting on Tue01/30/21 at 1355, For 1 dose, Imaging Protocol Orders, Dose per Radiant Medication Guidelines sodium chloride (PF) 0.9 % injection 1-1 00 mL Given 01/30/2021 2:29 PM LOGGING ASSISTANT 35 mL 1-100 mL, intravenous, Once, On Tue01/30/21 at 1400, For 1 dose, Imaging Protocol Orders documented in this encounter Additional Health Concerns Assessment Noted Time PHQ-9 Depression Total Score: 5 04/05/2019 8:00 AM CDT documented as of this encounter
--- OUTSIDE RECORDS SUMMARY | 2022-08-08 23:05 | XMS_ITS | Encounter Summary ---
:1965 Author Organization [facility] Address [address] [place] [address] Care Team Providers Name Role Phone Unavailable Primary Care Provider Unavailable Reason for Referral MRI/CAT/PET Scan (Routine) - Closed Specialty Diagnoses / Procedures Referred By Contact Refer red To Contact Radiology Diagnoses Ataxia Robert Fowler M.D. [facility] Procedures CT Head Neck Angiogram with IV Contrast [address] [place] [address] Referral ID Status Reason Start Date Expiration Date Visits Requ ested Visits Authorized [id number] Closed 12/31/2020 12/31/2021 1 1 ET NOTCHER Outpatient (Routine) - Closed Specialty Diagnoses / Procedures Referred By Contact Refer red To Contact Video Medicine Diagnoses Stroke Cerebrovascular Accident Personal History Robert Fowler [facility] Margot Quintana [address] [place] [address] Referral ID Status Reason Start Date Expiration Date Visits Requ ested Visits Authorized [id number] Closed 12/30/2020 12/30/2021 1 1 ET NOTCHER MRI/CAT/PET Scan (Routine) - Closed Specialty Diagnoses / Procedures Referred By Contact Refer red To Contact Radiology Diagnoses Ataxia Robert Fowler M.D. [facility] Procedures CT Head Neck Angiogram with IV Contrast [address] [place] [address] Referral ID Status Reason Start Date Expiration Date Visits Requ ested Visits Authorized [id number] Closed 12/30/2020 12/30/2021 1 1 ET NOTCHER MRI/CAT/PET Scan (Routine) - Closed Specialty Diagnoses / Procedures Referred By Contact Refer red To Contact Radiology Diagnoses Stroke Cerebrovascular Accident Personal History Robert Fowler M.D. [place] [facility] Procedures CT Head without IV Contrast [address] [place] [address] Referral ID Status Reason Start Date Expiration Date Visits Requ ested Visits Authorized [id number] Closed 12/30/2020 12/30/2021 1 1 ET NOTCHER Reason for Visit Reason Comments Symptom Assessment Encounter Details Date Type Department Care Team Description 12/22/2020 Clinical Communication Department of Robert Fowler mptom Assessment Neurology jimmy Celaya M.D. [place], [address] [place], [place] [address] [facility] [address] [place], [place] [phone] (Work) [phone] Social History Tobacco Use Types Packs/Day Years [...] you attend worship or Patient refused 2021 nondenominational services? Do [...] Robert Fowler M.D. - 12/31/2020 5:17 PM GASKET NOTCHER Addended by: ROBERT FOWLER on: 12/31/2020 05:17 PM Modules accepted: Orders ET NOTCHER Addendum Note - Robert Fowler M.D. - 12/30/2020 8:34 AM GASKET NOTCHER Addended by: ROBERT FOWLER on: 12/30/2020 08:34 AM Modules accepted: Orders ET NOTCHER Telephone Encounter - Zuly Alex R.N. - 12/29/2020 4:48 PM CST The patient telephones back today. She did present to the local ED in [place] for evaluation of her vertigo. She shares [...] needs to get in contact with her [facility] neurologist. The patient reports that at her [...] advice. TYPE OF PHONE CALL. Symptom assessment. ET NOTCHER Telephone Encounter - Robert Fowler M.D. - [...] by: Robert Fowler M.D. 12/23/20 8:21 AM GASKET NOTCHER ET NOTCHER Telephone Encounter - Zuly Alex R.N. - 12/22/2020 5:25 PM CST 5:17 pm. Tried calling to assure she could reach her son to take her to the ED. No answer. ET NOTCHER Telephone Encounter - Zuly Alex R.N. - [...] her to the nearest emergency room or [facility]. She expressed concerns about going to the [...] the nearest ED which would be in [place]. He did not answer. I offered to [...] advice. TYPE OF PHONE CALL. Symptom assessment. ET NOTCHER Telephone Encounter - Robert Fowler M.D. - 12/22/2020 3:29 PM CST Please call patient in triage whether she needs to be seen in the local emergency department for concern of acute stroke? ET NOTCHER documented in this encounter Plan of Treatment Scheduled Referrals Name Type Priority Associated Diagnoses Order S chedule Video anyplace Outpatient Referral Routine Stroke Cerebrovascu lar Expected: visit Accident Personal 12/30/2020 , History Expires: 12/30/2023 documented as of this encounter Results CT Head Neck Angiogram with IV Contrast (01/30/2021 3:24 PM GASKET NOTCHER) Anatomical Region Laterality Modality Head and Neck, Neuroradiology RST LOS, N/A C omputed Tomography, Computed Neuroradiology ARZ LOS, Neuroradiology T omography FLA LOS Specimen (Source) Anatomical Collection Method Collection Time Re ceived Time Location / / Volume Laterality 01/30/2021 2:25 PM GASKET NOTCHER Impressions 01/30/2021 3:18 PM GASKET NOTCHER 1. 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 Slightly decreased high-grade stenosis a t the V3/4 junction with increased flow in the distal V4 segment. 2. Evolving, now chronic right cerebella r infarct. 3. 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 Narrative 01/30/2021 3:18 PM GASKET NOTCHER EXAM: CT HEAD NECK ANGIOGRAM WITH IV [...] normal caliber bilater al MCAs, ACAs and medical certification specialist. Patent anterior and right posterior communicating [...] normal caliber bilater al MCAs, ACAs and medical certification specialist. Patent anterior and right posterior communicating [...] Angiogram with IV Contrast (12/31/2020 3:34 PM GASKET NOTCHER) Anatomical Region Laterality Modality Head and Neck, Neuroradiology RST LOS, N/A C omputed Tomography, Computed Neuroradiology ARZ LOS, Neuroradiology T omography FLA [facility] Specimen (Source) Anatomical Collection Method Collection Time Re ceived Time Location / / Volume Laterality 12/31/2020 3:49 PM GASKET NOTCHER Impressions 12/31/2020 4:54 PM GASKET NOTCHER 1. Evolving right cerebellar infarct with decreased [...] oid ICA aneurysms. Narrative 12/31/2020 4:54 PM GASKET NOTCHER EXAM: CT HEAD WITHOUT IV CONTRAST, CT [...] Findings discussed with ordering Dr. Fazal ching ([phone]) at 4:54 PM on 12/31/2020. Procedure Note [...] Findings discussed with ordering physici anDr. Fowler ([phone]) at 4:54 PM on 12/31/2020. IMPRESSION: 1. [...] Head without IV Contrast (12/31/2020 3:34 PM GASKET NOTCHER) Anatomical Region Laterality Modality Head, Neuroradiology RST LOS, N/A Computed T omography, Computed Neuroradiology ARZ LOS, Neuroradiology T omography FLA LOS Specimen (Source) Anatomical Collection Method Collection Time Re ceived Time Location / / Volume Laterality 12/31/2020 3:49 PM GASKET NOTCHER Impressions 12/31/2020 4:54 PM GASKET NOTCHER 1. Evolving right cerebellar infarct with decreased [...] oid ICA aneurysms. Narrative 12/31/2020 4:54 PM GASKET NOTCHER EXAM: CT HEAD WITHOUT IV CONTRAST, CT [...] discussed with ordering physici Dr. Fazal abbasi ([phone]) at 4:54 PM on 12/31/2020. Procedure Note [...] Findings discussed with ordering Dr. Fazal ching ([phone]) at 4:54 PM on 12/31/2020. IMPRESSION: 1. [...]
--- OUTSIDE RECORDS SUMMARY | 2022-08-08 23:06 | XMS_ITS | Encounter Summary ---
:1965 Author Organization [facility] Address [address] [place] [address] Care Team Providers Name Role Phone Unavailable Primary Care Provider Unavailable Encounter Details Date Type Department Care Team Description 12/06/2019 Clinical Communication Department of Robert Diehl, Neurology in .. [place], [place] 200 [facility] 200 [place] [address] [phone] Social History Tobacco Use Types Packs/Day Years [...] you attend cheondoism or Patient refused 2021 scientology services? Do [...] during her next visit. Janis Preston R.N. HOLDER Telephone Encounter - Jansi Preston R.N. - 12/06/2019 1:35 PM CST ----- Message from Robert Diehl M.D. sent at 12/03/2019 10:17 AM KEY HOLDER ----- Regarding: FW: Overnight oximetry Good morning Would you be able to reach out and let this patient know the oximetry was unsuccessful and would need to be repeated and ask if they would like to do this? Thank you! Electronically signed by: Robert Diehl M.D. 12/03/19 10:18 AM KEY HOLDER ----- Message ----- From: Carolynn Stokes Sent: 11/29/2019 2:39 PM KEY HOLDER To: Robert Diehl M.D. Subject: Overnight oximetry Your patients overnight oximetry test did not have recorded data of sufficient duration for an interpretation to be completed and was returned four months after appointment. Therefore an overnight oximetry report will not be generated to [facility]. Please contact your clinical acute care assistant to reschedule an overnight oximetry test if you wish the patient to repeat an overnight oximetry test. HOLDER documented in this encounter Plan of Treatment [...] Organization Address City/State/ZIP Code Phon e Number RODNEY PATRICIA EA documented in this encounter Visit Diagnoses Diagnosis Fatigue - Primary Fatigue documented in this encounter Additional Health Concerns Assessment Noted Time PHQ-9 Depression Total Score: 5 04/05/2019 8:00 AM CDT documented as of this encounter
--- OUTSIDE RECORDS SUMMARY | 2022-08-08 23:06 | XMS_ITS | Encounter Summary ---
:1965 Author Organization [facility] Address [address] [place] [address] Care Team Providers Name Role Phone Unavailable Primary Care Provider Unavailable Encounter Details Date Type Department Care Team Description 08/05/2020 Clinical Communication Department of Honorio, Otorhinolaryngology in [place], [place] [address] [place], [place] [phone] [facility] [phone] [place] [phone] Social History Tobacco Use Types Packs/Day Years [...] you attend denominational or Patient refused 2021 catholic services? Do [...] called patient to schedule COVID testing at [place] prior to appointment. Didn't answer so jessica [...]
--- OUTSIDE RECORDS SUMMARY | 2022-08-08 23:06 | XMS_ITS | Encounter Summary ---
:1965 Author Organization [facility] Address [address] [place] [address] Care Team Providers Name Role Phone Unavailable Primary Care Provider Unavailable Reason for Visit Outpatient (Routine) - Closed Specialty Diagnoses / Procedures Referred By Contact Refer red To Contact Otorhinolaryngology Darlin Olmedo M.D . [facility] [address] [place] [phone] Referral ID Status Reason Start Date Expiration Date Visits Requ ested Visits Authorized [id number] Closed 12/18/2019 12/17/2020 1 1 Encounter Details Date Type Department Care Team Description 01/08/2020 Office Visit Department of Darlin Olmedo Mucocele Nasa l Sinus Otorhinolaryngology jimmy Brumfield M.D. (Primary Dx) [address] [place] [phone] Social History Tobacco Use Types [...] you attend muslim or Patient refused 2021 denominational services? Do you belong to any clubs or No 05/17/2022 organizations such as muslim groups, unions, [employer]Swallow [employer] or athletic groups, or school groups? How [...] documented as of this encounter Progress Notes ePte Meeks M.D. - 01/08/2020 2:15 PM CST [...] She will continue saline irrigations and Flonase. TRAFFIC MANAGER Associated attestation - Darlin Olmedo M.D. - 01/16/2020 5:45 PM PORT TRAFFIC MANAGER I saw and evaluated the patient, [...]
--- OUTSIDE RECORDS SUMMARY | 2022-08-08 23:06 | XMS_ITS | Encounter Summary ---
:1965 Author Organization [facility] Address [address] [place] [address] Care Team Providers Name Role Phone Unavailable Primary Care Provider Unavailable Encounter Details Date Type Department Care Team Description 01/07/2020 Diagnostic Division of Pulmonary Akhil Diehl M.D. [facility] in [place], [facility] [address] [place], [place] 200 [facility] [address] [place] [address] [phone] Social History Tobacco Use Types Packs/Day Years [...] Organization Address City/State/ZIP Code Phon e Number [facility] documented in this encounter Visit Diagnoses Diagnosis Fatigue documented in this encounter Additional Health Concerns Assessment Noted Time PHQ-9 Depression Total Score: 5 04/05/2019 8:00 AM CDT documented as of this encounter
--- OUTSIDE RECORDS SUMMARY | 2022-08-08 23:06 | XMS_ITS | Encounter Summary ---
:1965 Author Organization [facility] Address [address] [place] [address] Care Team Providers Name Role Phone Unavailable Primary Care Provider Unavailable Encounter Details Date Type Department Care Team Description 11/29/2019 Hospital Encounter Department of Jey Santana, Rhinosi nusitis Chronic; Laboratory Medicine M.D. Preanesthetic Medical Exam and Pathology, [address] [place] [address] in [facility] [address] [place] [phone] [place] [address] (Work) [place], [place] [phone] [address] (Fax) [phone] Social History Tobacco Use Types Packs/Day Years [...] you attend mosque or Patient refused 2021 yazidi services? Do [...] R esults for this DIFFERENTIAL, B AM WEB GRAPHIC DESIGNER procedure ar e in the results section. CREATININE WITH Routine 11/29/2019 11:30 Preanesthetic Medical Results for this EGFR, S/P AM WEB GRAPHIC DESIGNER Exam procedure are i n the results section. documented in this encounter Results Creatinine with Estimated GFR - for Lab Draw (11/29/2019 11:30 AM WEB GRAPHIC DESIGNER) P athologist Signature Creatinine 0.98 0.59 - 11/29/2019 DTL 1.04 mg/dL 1:05 PM WEB GRAPHIC DESIGNER eGFR-Non 65 >=60 11/29/2019 DTL Black/ mL/min/BSA 1:05 PM WEB GRAPHIC DESIGNER Polish Comment: ----ADDITIONAL INFORMATION---- Estimated GFR calculated using the 2009 CKD_EPI creatinine equation. eGFR-Black/ 75 >=60 mL/min/BSA 2019 1:05 PM WEB GRAPHIC DESIGNER DTL Comment: ----ADDITIONAL INFORMATION---- Estimated GFR calculated using the 2009 CKD_EPI creatinine equation. Specimen Anatomical Collection Method Collection Time Receive d Time (Source) Location / / Volume Laterality Blood (Blood, 11/29/2019 11:30 11/29/2019 Venous) AM WEB GRAPHIC DESIGNER 11:50 AM WEB GRAPHIC DESIGNER Miranda Collado APRN C.N.P., M.S.N. LAB BLOOD ADD-ON Performing Organization Address City/State/RUST Code Phon e Number [facility] - [address] [place] [address] [place] [address] Laboratories-[facility] [address] [facility] (ABNORMAL) CBC without Differential (11/29/2019 11:30 AM WEB GRAPHIC DESIGNER) Patholo gist Method Time Signature Hemoglobin 13.3 11.6 - 11/29/2019 DTL 15.0 g/dL 12:09 PM WEB GRAPHIC DESIGNER Hematocrit 40.6 35.5 - 11/29/2019 DTL 44.9 % 12:09 PM WEB GRAPHIC DESIGNER Erythrocytes 4.08 3.92 - 11/29/2019 DTL 5.13 12:09 PM WEB GRAPHIC DESIGNER x10(12)/L MCV 99.5 (H) 78.2 - 11/29/2019 DTL 97.9 fL 12:09 PM WEB GRAPHIC DESIGNER RBC Distrib Width 13.3 12.2 - 11/29/2019 DTL 16.1 % 12:09 PM WEB GRAPHIC DESIGNER Platelet Count 234 157 - 371 11/29/2019 DTL x10(9)/L 12:09 PM WEB GRAPHIC DESIGNER Leukocytes 5.8 3.4 - 9.6 11/29/2019 DTL x10(9)/L 12:09 PM WEB GRAPHIC DESIGNER Specimen Anatomical Collection Method Collection Time Receive d Time (Source) Location / / Volume Laterality Blood (Blood, 11/29/2019 11:30 11/29/2019 Venous) AM WEB GRAPHIC DESIGNER 11:50 AM WEB GRAPHIC DESIGNER Jey Santana M.D. LAB BLOOD ADD-ON Performing Organization Address City/State/ZIP Code Phon e Number [facility] - [address] [place], [place] [address] [place] [address] [facility] [address] [facility] documented in this encounter Visit Diagnoses Diagnosis Rhinosinusitis Chronic Preanesthetic Medical Exam documented in this encounter Additional Health Concerns Assessment Noted Time PHQ-9 Depression Total Score: 5 04/05/2019 8:00 AM CDT documented as of this encounter
--- OUTSIDE RECORDS SUMMARY | 2022-08-08 23:06 | XMS_ITS | Encounter Summary ---
:1965 Author Organization [facility] Address [address] [place] [address] Care Team Providers Name Role Phone Unavailable Primary Care Provider Unavailable Reason for Visit Outpatient (Routine) - Closed Specialty Diagnoses / Procedures Referred By Contact Refer red To Contact Otorhinolaryngology Jey Santana M.D. [facility] [address] [place] [phone] Referral ID Status Reason Start Date Expiration Date Visits Requ ested Visits Authorized [id number] Closed 11/08/2019 11/07/2020 1 1 Encounter Details Date Type Department Care Team Description 11/29/2019 Office Visit Department of Darlin Olmedo Mucocele Nasa l Sinus Otorhinolaryngology jimmy Brumfield M.D. (Primary Dx) [address] [place] [phone] Social History Tobacco Use Types Packs/Day Years [...] you attend anabaptist or Patient refused 2021 sikhism services? Do you belong to any clubs or No 05/17/2022 organizations such as anabaptist groups, unions, fraSocial DJ or athletic groups, or school groups? How [...] Previous sinus surgery: sinus surgery X2 in [place] and X2 at [place] per patient; mucocele notedby left eye on [...] Crusting Mild = 1 Mild = 1 [facility] Score = 2 ASSESSMENT / PLAN [...] if this occurs we will identify another furniture sales consultant surgeon to supervise other team members to safely and seamlessly complete the procedure. Signed consent was obtained today. Patient was seen and examined today in conjunction with Dr. Darlin Olmedo ([phone]). STANT PARALEGAL Associated attestation - Darlin Olmedo M.D. - 11/30/2019 10:43 AM ASSISTANT PARALEGAL I was the supervising physician in the delivery of the service. I saw the patient with Krista Casey APRN, PERINATAL TECHNICIAN, MSN and agree with her history, [...]
--- OUTSIDE RECORDS SUMMARY | 2022-08-08 23:06 | XMS_ITS | Encounter Summary ---
:1965 Author Organization [facility] Address [address] [place] [address] Care Team Providers Name Role Phone Unavailable Primary Care Provider Unavailable Reason for Visit Reason Onset Date Comments Patient wants letter and notes sent to physician in 10/03/[address] Robert Diehl [facility] Encounter Details Date Type Department Care Team Description 10/03/2019 Clinical Communication Department of Robert Diehl Neurology in [place], M.DBritton letter and notes [address] sent to physician [place], [place] in [facility] ( [address] [place] [phone] Robert Diehl) [place], [place] [phone] (Work) [phone] Social History Tobacco Use Types Packs/Day Years [...] you attend advent or Patient refused 2021 christian services? Do [...] patient's notes from her most recent visit. ONAL VAN OWNER OPERATOR documented in this encounter Plan of Treatment Not on filedocumented as of this encounter Visit Diagnoses Not on filedocumented in this encounter Additional Health Concerns Assessment Noted Time PHQ-9 Depression Total Score: 5 04/05/2019 8:00 AM CDT documented as of this encounter
--- OUTSIDE RECORDS SUMMARY | 2022-08-08 23:06 | XMS_ITS | Encounter Summary ---
:1965 Author Organization [facility] Address [address] [place] [address] Care Team Providers Name Role Phone Unavailable Primary Care Provider Unavailable Reason for Visit Outpatient (Routine) - Closed Specialty Diagnoses / Procedures Referred By Contact Refer red To Contact General Surgery Diagnoses Rhinosinusitis Chronic Jey Santana M.D. [facility] [address] [place] [phone] Referral ID Status Reason Start Date Expiration Date Visits Requ ested Visits Authorized [id number] Closed 11/08/2019 11/07/2020 1 1 Encounter Details Date Type Department Care Team Description 11/29/2019 Comprehensive Visit Preoperative Jey Santana M.D. [address] [place] [phone] Preanesthetic Medical Exam (Primary Dx); Evaluation Center in Lanre Carvajal M.D. [address] [place] [phone] Rhinosinusitis Chronic [place], [place] [address] [place] [phone] Social History Tobacco Use Types Packs/Day Years [...] you attend sabianism or Patient refused 2021 jainism services? Do [...] Comments Blood Pressure 108/74 11/29/2019 12:45 PM WHITE SPOOLER Pulse 104 11/29/2019 12:45 PM WHITE SPOOLER Temperature 36.5 ??C (97.7 ??F) 11/29/2019 12:45 PM WHITE SPOOLER Respiratory Rate - - Oxygen Saturation 96% 11/29/2019 12:45 PM WHITE SPOOLER Inhaled Oxygen Concentration - - Weight 76.4 kg (168 lb 6.9 oz) 11/29/2019 12:45 PM WHITE SPOOLER Height 151.7 cm (4' 11.72) 11/29/2019 12:45 PM WHITE SPOOLER Body Mass Index 33.2 11/29/2019 12:45 PM WHITE SPOOLER documented in this encounter H&P Notes Lanre Carvajal M.D. - 11/29/2019 12:45 PM CST Preoperative Medical Evaluation Patient Name: Angie Mosquera Age: 54 y.o. Date of : 1965 Patient Address: [address] [place] [phone] Primary Care Provider: No primary care provider [...] #11 Patent Foramen [place] (HCC) Noted on [id number]/ ECHO otherwise normal. I will not pursue anything further E SPOOLER documented in this encounter Plan of Treatment Not on filedocumented as of this encounter Results Creatinine with Estimated GFR - for Lab Draw (11/29/2019 11:30 AM WHITE SPOOLER) P athologist Signature Creatinine 0.98 0.59 - 11/29/2019 DTL 1.04 mg/dL 1:05 PM WHITE SPOOLER eGFR-Non 65 >=60 11/29/2019 DTL Black/ mL/min/BSA 1:05 PM WHITE SPOOLER [place] Citizen Comment: ----ADDITIONAL INFORMATION---- Estimated GFR calculated using the 2009 CKD_EPI creatinine equation. eGFR-Black/ 75 >=60 mL/min/BSA 2019 1:05 PM WHITE SPOOLER DTL Comment: ----ADDITIONAL INFORMATION---- Estimated GFR calculated using the 2009 CKD_EPI creatinine equation. Specimen Anatomical Collection Method Collection Time Receive d Time (Source) Location / / Volume Laterality Blood (Blood, 11/29/2019 11:30 11/29/2019 Venous) AM WHITE SPOOLER 11:50 AM WHITE SPOOLER Miranda Collado APRN, C.N.P., M.S.N. LAB BLOOD ADD-ON Performing Organization Address City/State/ZIP Code Phon e Number [facility] - [address] [place], [place] [address] [facility] [place] [address] Laboratories-[facility] [address] documented in this encounter Visit Diagnoses Diagnosis Preanesthetic Medical Exam - Primary Rhinosinusitis Chronic documented in this encounter Additional Health Concerns Assessment Noted Time PHQ-9 Depression Total Score: 5 04/05/2019 8:00 AM CDT documented as of this encounter
--- OUTSIDE RECORDS SUMMARY | 2022-08-08 23:06 | XMS_ITS | Encounter Summary ---
:1965 Author Organization [facility] Address [address] [place] [address] Care Team Providers Name Role Phone Unavailable [...] 01/08/2020 3:15 Results for this EXAM PM CARBIDE TOOL MAKER procedure are i n the results section. documented in this encounter Results NOSE-Otorhinolaryngology Image Exam (01/08/2020 3:15 PM CARBIDE TOOL MAKER) Specimen (Source) Anatomical Collection Method Collection Time Re ceived Time Location / / Volume Laterality 01/08/2020 3:11 PM CARBIDE TOOL MAKER Narrative [facility]IMS - 01/08/2020 3:29 PM CARBIDE TOOL MAKER This order has been created and [...]
--- OUTSIDE RECORDS SUMMARY | 2022-08-08 23:06 | XMS_ITS | Encounter Summary ---
:1965 Author Organization [facility] Address [address] [place] [address] Care Team Providers Name Role Phone Unavailable Primary Care Provider Unavailable Encounter Details Date Type Department Care Team Description 12/07/2019 Anesthesia Event RST ROMB LUISA OR Leonides Walker, [address] [facility] [place] [address] [address] [place] [address] [place] [address] (Wo rk) Anesthesia Record Procedure [...] h andoff to the receiving staff during [place] we 1. Identified the patient 2. Ident [...] 12/07 1222 by Placement Time: 1201; Pamela eD Leon Britt M, Catheter Size: 20 G; R.N. Orientation: Left; Location: Hand; Site Prep: Chlorhexidine (Preferred); Removal Date: 12/07/19; Removal Time: 1222 ETT Placement Date: 12/07/19; 12/07/19 1244 by 12/07 1415 by Placement Time: 1244 Gini Garcia R, Simin valentine, Jey García, (created via procedure FOUNDRY WORKER APPRENTICE, ROCK DUSTER FOUNDRY WORKER APPRENTICE, TY A documentation); Mask Ventilation: Easy mask; [...] you attend moravian or Patient refused 2021 anglican services? Do you belong to any clubs or No 05/17/2022 organizations such as moravian groups, unions, fraInkerwang or athletic groups, or school groups? How [...] Procedure Summary Date: 12/07/19 Room / Location: [place] [address] ROMB 01 580 / [facility] in [place], [place] Anesthesia Start: 1234 Anesthesia Stop: 1434 Procedures: SINUSOTOMY ENDOSCOPY FRONTAL. (Bilateral Nose) EXTRADURAL COMPUTER NAVIGATION. 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 Responsible Provider: Leonides Walker [...] Promethazine; otherwise, uneventful recovery with outpt dispo. OUT WAITER Anesthesia Procedure Notes - Gini Garcia APRN, [...] Procedure outcome: successful Airway event: no complications OUT WAITER Anesthesia Preprocedure Evaluation - Leonides Walker M.D. - 12/07/2019 11:59 AM CST Preprocedure Anesthesia & H&P Assessment Procedure Summary Date/Time: 12/07/19 1119 Procedures: SINUSOTOMY ENDOSCOPY FRONTAL. (Bilateral Nose) EXTRADURAL COMPUTER NAVIGATION. 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 Location: [place] [address] / [facility] in [place], [place] Provider: Darlin Olmedo M.D. Pertinent components [...] #11 Patent Foramen Ovale (HCC) Noted on [id number]/ ECHO otherwise normal. I will not pursue [...] with patient /legal guardian or through an deaf interpreter. The use of blood products not discussed Approval to Proceed: approved for anesthesia OUT WAITER documented in this encounter Plan of Treatment Not on filedocumented as of this encounter Procedures Procedure Name Priority Date/Time Associated Comments Diagnosis LDA ANE ENDOTRACHEAL Routine 12/07/2019 12:47 Res ults for this AIRWAY PM TAKE OUT WAITER procedure are i n the results section. documented in this encounter Results LDA ANE ENDOTRACHEAL AIRWAY (12/07/2019 12:47 PM TAKE OUT WAITER) Narrative Gini Garcia APRN, CRNA - 2019 12:47 PM TAKE OUT WAITER Gini Garcia APRN, CRNA ? 12/07/2019 12:49 [...] dexamethasone injection (DECADRON) Given 12/07/2019 12:43 PM TAKE OUT WAITER 4 mg As needed, Starting on Tue12/07/19 at 1243, Anesthesia Intra-op ePHEDrine (PF) injection Given 12/07/2019 12:48 PM TAKE OUT WAITER 5 mg intravenous, As needed, Starting on Tue12/07/19 at 1242, Anesthesia Intra-op Given 12/07/2019 12:42 PM TAKE OUT WAITER 25 mg fentaNYL injection 25 mcg (SUBLIMAZE) Given 12/07/2019 2:32 PM TAKE OUT WAITER 25 mcg 25 mcg, intravenous, Every 2 min PRN, For pain 4 or greater (maximum 100 mcg). If max dose of Fentanyl is reached and if pain is greater than 4, discontinue Fentanyl: give Hydromorphone, Starting on Tue12/07/19 at 1145, Pre-Op lactated ringers New Bag 12/07/2019 12:39 PM TAKE OUT WAITER intravenous, Continuous Infusion: Per Instructions PRN, Starting on Tue12/07/19 at 1239, Anesthesia Intra-op lidocaine (PF) (cardiac) injection Given 12/07/2019 12:40 PM TAKE OUT WAITER 100 mg intravenous, As needed, Starting on Tue12/07/19 at 1240, Anesthesia Intra-op ondansetron (PF) injection (ZOFRAN) Given 12/07/2019 1:57 PM TAKE OUT WAITER 4 mg intravenous, As needed, Starting on Tue12/07/19 at 1357, Anesthesia Intra-op phenylephrine injection Given 12/07/2019 12:50 PM TAKE OUT WAITER 100 mcg intravenous, As needed, Starting on Tue12/07/19 at 1246, Anesthesia Intra-op Given 12/07/2019 12:48 PM TAKE OUT WAITER 100 mcg Given 12/07/2019 12:46 PM TAKE OUT WAITER 100 mcg propofol 10 mg/mL infusion Rate/Dose 12/07/2019 75 mcg/kg/min 34.4 m L/hr (DIPRIVAN) Change 12:46 PM TAKE OUT WAITER intravenous, Continuous Infusion: Per Instructions PRN, Starting on Tue12/07/19 at 1241, Anesthesia Intra-op New Bag 12/07/2019 12:41 PM TAKE OUT WAITER 250 mcg/kg/min 115 mL/hr propofol injection (DIPRIVAN) Given 12/07/2019 12:42 PM TAKE OUT WAITER 100 mg intravenous, As needed, Starting on Tue12/07/19 at 1242, Anesthesia Intra-op remifentanil 20 mcg/mL in Rate/Dose 12/07/2019 1:43 0.1 mcg/kg/min 2 2.9 mL/hr NaCl 0.9% 100 mL infusion Change PM TAKE OUT WAITER (ULTIVA) Continuous Infusion: Per Instructions PRN, Starting on Tue12/07/19 at 1246, Anesthesia Intra-op Rate/Dose Change 12/07/2019 12:53 PM TAKE OUT WAITER 0.2 mcg/kg/min 45.8 mL/hr New Bag 12/07/2019 12:46 PM TAKE OUT WAITER 0.25 mcg/kg/min 57.3 mL/hr succinylcholine (PF) injection (ANECTINE ) Given 12/07/2019 12:42 PM TAKE OUT WAITER 10 mg intravenous, As needed, Starting on Tue12/07/19 at 1242, Anesthesia Intra-op vancomycin in NaCl 0.9% IVPB 1,250 mg Given 12/07/2019 12:51 PM TAKE OUT WAITER 1.25 g 1,250 mg (rounded from 1,146 [...]
--- OUTSIDE RECORDS SUMMARY | 2022-08-08 23:06 | XMS_ITS | Encounter Summary ---
:1965 Author Organization [facility] Address [address] [place] [address] Care Team Providers Name Role Phone Unavailable Primary Care Provider Unavailable Reason for Visit Reason Onset Date Comments Schedule Surgery 10/05/2019 Encounter Details Date Type Department Care Team Description 10/05/2019 Clinical Department of [place], Schedule Surge ry Communication Otorhinolaryngology in [place], [place] 200 [facility] [address] [place] [phone] [place] [address] Social History Tobacco Use Types Packs/Day Years [...] you attend sikhism or Patient refused 2021 jew services? Do [...] Kaykay Murphy R.N. - 10/17/2019 8:10 AM SEAFOOD SPECIALIST Pt has return appt with EKO on 10/23 OOD SPECIALIST Telephone Encounter - Alana Engel L.P.NBritton - 10/09/2019 2:49 PM CST Note sent to DR. Olmedo and patient's Neurology team to discuss clearance for surgery. Desk is scheduling a return for the patient ot discuss surgery. OOD SPECIALIST Telephone Encounter - Alana Engel L.P.N. - [...] following references were used: provider Dr. Olmedo OOD SPECIALIST Telephone Encounter - Zoey Lipscomb - 10/05/2019 [...] surgical date. She can be reached at [phone]. OOD SPECIALIST documented in this encounter Plan of Treatment Not on filedocumented as of this encounter Visit Diagnoses Not on filedocumented in this encounter Additional Health Concerns Assessment Noted Time PHQ-9 Depression Total Score: 5 04/05/2019 8:00 AM CDT documented as of this encounter
--- OUTSIDE RECORDS SUMMARY | 2022-08-08 23:06 | XMS_ITS | Encounter Summary ---
:1965 Author Organization [facility] Address [address] [place] [address] Care Team Providers Name Role Phone Unavailable Primary Care Provider Unavailable Encounter Details Date Type Department Care Team Description 12/08/2019 Documentation Department of Darlin Olmedo, Otorhinolaryngology in [place], [place] [address] [place] [address] 200 [place] [phone] [phone] Social History Tobacco Use Types Packs/Day Years [...] Chronicpain for spine pathology with oxycodone use medical terminologist. Additional doses of oxycodone not sufficient for [...] she is currently having. -Dr. Clemente Medley EY INTERVIEWER documented in this encounter Plan of Treatment Not on filedocumented as of this encounter Visit Diagnoses Not on filedocumented in this encounter Additional Health Concerns Assessment Noted Time PHQ-9 Depression Total Score: 5 04/05/2019 8:00 AM CDT documented as of this encounter
--- OUTSIDE RECORDS SUMMARY | 2022-08-08 23:06 | XMS_ITS | Encounter Summary ---
:1965 Author Organization [facility] Address [address] [place] [address] Care Team Providers Name Role Phone Unavailable Primary Care Provider Unavailable Reason for Referral Outpatient (Routine) - Closed Specialty Diagnoses / Procedures Referred By Contact Refer herson To Contact General Surgery Diagnoses Rhinosinusitis Chronic John Gomez M.D. [address] [address] Referral ID Status Reason Start Date Expiration Date Visits Requ ested Visits Authorized [id number] Closed 11/08/2019 11/07/2020 1 1 utpatient (Routine) - Closed Specialty Diagnoses / Procedures Referred By Contact Clyde bains To Contact Otorhinolaryngology John Gomez M.D. [address] [address] Referral ID Status Reason Start Date Expiration Date Visits Requ ested Visits Authorized [id number] Closed 11/08/2019 11/07/2020 1 1 Scheduling Instructions EKO listing visit and NESHA 11/29/2019 ETICS PROFESSOR Reason for Visit Reason Onset Date Comments reschedule surgery 11/07/2019 Patient was a no sydni w for surgery with Dr. Olmedo on 11/05/19. Encounter Details Date Type Department Care Team Description 11/07/2019 Clinical Department of shawna Olmedo Communication Otorhinolaryngology in [place], surg silva (Patient [place], [place] M.D. was a no show for [address] [place]. [place], [place] [phone] SHAHANA Bennett on [phone] [place], 11/05/19.) [place] [address] Social History Tobacco Use Types Packs/Day Years [...] you attend hinduism or Patient refused 2021 worship services? Do [...] Tanvi White R.N. - 11/09/2019 10:02 AM DIETETICS PROFESSOR Patient called to let her know of the preoperative appointments and listing appointment with Dr. Darlin Olmedo. She was also informed that she does not have to stop the aspirin 81 mg for surgery. She verbalized understanding regarding the use of aspirin and was appreciative of the call. ETICS PROFESSOR Telephone Encounter - John Gomez M.D. - 11/08/2019 5:00 PM CST Kosta Wu I placed the NESHA, listing visit, and created the listing. She can stay on her 81 ASA. Thank you. ETICS PROFESSOR Addendum Note - John Gomez M.D. - 11/08/2019 4:59 PM DIETETICS PROFESSOR Addended by: JOHN GOMEZ on: 11/08/2019 04:59 PM Modules accepted: Orders ETICS PROFESSOR Telephone Encounter - Tanvi White R.N. - 11/08/2019 10:59 AM DIETETICS PROFESSOR SUBJECTIVE CHIEF COMPLAINT / REASON FOR CALL [...] the surgical date. 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 Disposition/Recommendation: Patient is aware that she will need to call in the night before surgeryfor a report [facility]. Information/Education: patient/caller able to teach back Caller agreeable to plan of care: yes The following references were used: nursing clinical judgement ETICS PROFESSOR Telephone Encounter - Darlin Olmedo M.D. - 11/08/2019 10:16 AM CST Any of those days are fine. I should see her for a listing visit and NESHA. thanks ETICS PROFESSOR Telephone Encounter - Tanvi White R.N. - 11/07/2019 1:34 PM DIETETICS PROFESSOR SUBJECTIVE CHIEF COMPLAINT / REASON FOR CALL [...] following references were used: nursing clinical judgement ETICS PROFESSOR documented in this encounter Plan of Treatment Scheduled Referrals Name Type Priority Associated Diagnoses Order S chedule Otorhinolaryngology office Outpatient Routine E xpected: visit (clinic) Referral 11/29/2019, Expires: 11/08/2022 Preoperative Evaluation Outpatient Routine Rhinosinusitis Ex pected: NESHA consult (clinic) Referral Chronic 020 (Approximate), Expires: 11/08/2022 documented as of this encounter Results (ABNORMAL) CBC without Differential (11/29/2019 11:30 AM DIETETICS PROFESSOR) [facility] gist Method Time Signature Hemoglobin 13.3 11.6 - 11/29/2019 DTL 15.0 g/dL 12:09 PM DIETETICS PROFESSOR Hematocrit 40.6 35.5 - 11/29/2019 DTL 44.9 % 12:09 PM DIETETICS PROFESSOR Erythrocytes 4.08 3.92 - 11/29/2019 DTL 5.13 12:09 PM DIETETICS PROFESSOR x10(12)/L MCV 99.5 (H) 78.2 - 11/29/2019 DTL 97.9 fL 12:09 PM DIETETICS PROFESSOR RBC Distrib Width 13.3 12.2 - 11/29/2019 DTL 16.1 % 12:09 PM DIETETICS PROFESSOR Platelet Count 234 157 - 371 11/29/2019 DTL x10(9)/L 12:09 PM DIETETICS PROFESSOR Leukocytes 5.8 3.4 - 9.6 11/29/2019 DTL x10(9)/L 12:09 PM DIETETICS PROFESSOR Specimen Anatomical Collection Method Collection Time Receive d Time (Source) Location / / Volume Laterality Blood (Blood, 11/29/2019 11:30 11/29/2019 Venous) AM DIETETICS PROFESSOR 11:50 AM DIETETICS PROFESSOR John Gomez M.D. LAB BLOOD ADD-ON Performing Organization Address City/State/ZIP Code Phon e Number [facility] - [address] [place], [place] [address] [facility] [place] [address] [facility] [address] documented in this encounter Visit Diagnoses Diagnosis Rhinosinusitis Chronic - Primary documented in this encounter Additional Health Concerns Assessment Noted Time PHQ-9 Depression Total Score: 5 04/05/2019 8:00 AM CDT documented as of this encounter
--- OUTSIDE RECORDS SUMMARY | 2022-08-08 23:06 | XMS_ITS | Encounter Summary ---
:1965 Author Organization [facility] Address [address] [place] [address] Care Team Providers Name Role Phone Unavailable Primary Care Provider Unavailable Reason for Visit Reason Comments shyam Encounter Details Date Type Department Care Team Description 07/29/2020 Clinical Communication Department of Robert Diehl [id number]/[id number] Neurology in [place], [place] [address] [place] [address] 200 [place] [address] [phone] Social History Tobacco Use Types Packs/Day Years [...] you attend anabaptism or Patient refused 2021 worship services? Do [...] for magnetic resonance angiogram be sent to [facility]. José Miguel advise what the exact testing [...]
--- OUTSIDE RECORDS SUMMARY | 2022-08-08 23:06 | XMS_ITS | Encounter Summary ---
:1965 Author Organization [facility] Address [address] [place] [address] Care Team Providers Name Role Phone Unavailable Primary Care Provider Unavailable Encounter Details Date Type Department Care Team Description 12/07/2019 Surgery RST ROMB [place] OR Darlin Olmedo, SINUSOTOMY ENDOSCOPY [address] [facility] [address] [address] [place] [address] [place] [phone] Social History Tobacco Use Types Packs/Day Years [...] you attend advent or Patient refused 2021 confucianist services? Do [...] sinus rinse kit (jose ramon Dalal or Lead). - Follow the directions on the bottle [...] or with another department at [facility], an appointment willbe made for you. If you have not received specific details (date, time, location) within 2 weeks of discharge, please contact our office at [phone] to inquire. If you are to follow up somewhere other than [facility], please schedule this appointment (in the timeframe recommended by your surgeon)at your earliest convenience. CONTACT INFORMATION: If you need to reach the Department of ENT at the [facility] regarding any questions during normal business hours, please call . If you are calling after normal business hours and have a concern that needs to be addressed urgently, please call the [facility] Maintenance Painter Apprentice at and ask to speak to the ENT resident director of vocational guidance. ECTIONS ASSOCIATE AttachmentsThe following attachments cannot be sent through Care Everywhere.Your Scopolamine Patch ([place] Islander)documented in this encounter Medications at Time of [...] by 3 mg) tablet mouth at bedtime. tiZANidine (ZANAFLEX) 4 mg Take [...] times a day as needed for cough. polyethylene glycol Take 17 g by mouth 0 04/11/20 17 (MIRALAX) 17 gram/dose as needed for oral powder constipation. albuterol (ACCUNEB) 2.5 mg Inhale 1 vial every 0 02/02/2021 /3 mL nebulizer solution 6 (six) hours as needed for shortness of breath. ARTHRITIS PAIN RELIEF, TAKE TWO TABLETS 6 [...] 0 02/2709/12/2020 mg immediate release daily tablet phentermine (ADIPEX-P) 37.5 mg every 2 10/16/2019 02/02/2021 37.5 mg tablet morning. potassium chloride Take 10 mEq by 0 (KLOR-CON M) 10 mEq ER mouth 2 (two) times tablet a day with meals. pregabalin (LYRICA) 150 mg Take 300 mg by 0 11/0402/02/2021 capsule mouth 2 (two) times a day. 1 cap in the morning, 2 caps at night. RESTASIS 0.05 % ophthalmic Administer 1 drop 0 02/02/2021 emulsion into both eyes 2 (two) times a day. SPIRIVA RESPIMAT 2.5 Inhale 2 puffs 0 01/09/2019 02/02/2021 mcg/actuation inhaler every morning. UNABLE TO FIND Take 1 each by 0 2020 mouth as needed. Med Name: Medical Marijuana Capsule doxycycline monohydrate Take 1 tablet (100 20 tablet 0 11/2812/17/2019 (ADOXA) 100 mg tablet mg total) by mouth 2 (two) times a day for 10 days. alum-mag hydroxide-simeth Take 30 mL by mouth 0 0 01/16/2010 02/02/2021 (MAALOX ADVANCED) every 4 (four) 200-200-20 mg/5 mL hours as needed for suspension indigestion or heartburn. clindamycin (CLINDAGEL) 1 as needed. 0 11/13/2019 02/02/2021 % gel metoclopramide (REGLAN) 10 Take 10 mg by [...] score 7-10 of 10 Indication: acute pain. promethazine (PHENERGAN) Take 25 mg by mouth 0 02/02/2021 25 mg tablet every 6 (six) hours as needed for nausea. Refresh Tears 0.5 % 0 12/03/201902/02 ophthalmic solution rOPINIRole (REQUIP) 2 mg 2 mg daily as 0 11/13/20 19 02/02/2021 tablet needed. varenicline (CHANTIX JULIANE) Use as directed on [...] Extradural computer navigation was registered according to industrial retrofit designer's guidelines and confirmed to be accurate within [...] 5 mL Implants None Darlin Olmedo M.D. ECTIONS ASSOCIATE Brief Op Note - Jey Santana M.D. [...] Loss None Implants None Jey Santana M.D. 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 Case Notes INTERNET DESIGNER 10:37 documented in this encounter Visit Diagnoses Diagnosis Rhinosinusitis Chronic Mucocele Nasal Sinus documented in this encounter Administered Medications Inactive Administered Medications - up to 3 most recent administrations Medication Order MAR Action Action Date Dose Rate Site acetaminophen injection 1,000 New Bag 12/07/2019 2:38 PM 1,000 mg 400 mL/hr mg (OFIRMEV) COLLECTIONS ASSOCIATE 1,000 mg, intravenous, at 400 mL/hr, Administer [...] 1,000 mg (TYLENOL) Given 12/07/2019 12:06 PM COLLECTIONS ASSOCIATE 1,000 mg 1,000 mg, oral, Once, On Tue12/07/19 at 1200, For 1 dose, Pre-Op aprepitant capsule 40 mg (EMEND) Given 12/07/2019 12:06 PM COLLECTIONS ASSOCIATE 40 mg 40 mg, oral, Once as needed, prevent ponv, Starting on Tue12/07/19 at 1145, For 1 dose, Pre-Op caffeine tablet 200 mg Given 12/07/2019 12:06 PM COLLECTIONS ASSOCIATE 200 mg 200 mg, oral, Once as needed, pre-op to prevent caffeine withdrawal headache or to enhance emergence from anesthesia/sedation, Starting on Tue12/07/19 at 1145, For 1 dose, Pre-Op, With sips cocaine 4 % external solution Given 12/07/2019 1:10 PM COLLECTIONS ASSOCIATE 4 mL Other As needed, Starting on Tue12/07/19 at 1310, Intra-Op droperidol injection 0.625 mg (INAPSINE) Given 12/07/2019 2:37 PM COLLECTIONS ASSOCIATE 0.625 mg 0.625 mg, intravenous, Every 6 [...] 25 mcg (SUBLIMAZE) Given 12/07/2019 2:32 PM COLLECTIONS ASSOCIATE 25 mcg 25 mcg, intravenous, Every 2 min PRN, For pain 4 or greater (maximum 100 mcg). If max dose of Fentanyl is reached and if pain is greater than 4, discontinue Fentanyl: give Hydromorphone, Starting on Tue12/07/19 at 1145, Pre-Op ketamine injection 10 mg (KETALAR) Given 12/07/2019 2:37 PM COLLECTIONS ASSOCIATE 10 mg 10 mg, intravenous, Once as needed, Pain sedation mismatch AND RASS score less than -1, Starting on Tue12/07/19 at 1430, For 1 dose, PACU (only) lactated ringers New Bag 12/07/2019 3:48 PM COLLECTIONS ASSOCIATE 20 mL/hr 20 mL/hr 20 mL/hr, intravenous, Continuous, Starting on Tue12/07/19 at 1400, PACU & Post-Op Continued from OR 12/07/2019 2:25 PM COLLECTIONS ASSOCIATE 20 mL/hr 20 mL/hr lidocaine-EPINEPHrine 1 %-1:100,000 Given 12/07/2019 1:45 PM COLLECTIONS ASSOCIATE 2 mL Other injection (XYLOCAINE W/EPI) As needed, Starting on Tue12/07/19 at 1320, Intra-Op Given 12/07/2019 1:20 PM COLLECTIONS ASSOCIATE 1.5 mL Other metoprolol tablet 12.5 mg [...] 2 mg (VERSED) Given 12/07/2019 12:28 PM COLLECTIONS ASSOCIATE 2 mg 2 mg, intravenous, Once as needed, anxiety, sedation, Starting on Tue12/07/19 at 1145, For 1 dose, Pre-Op ondansetron ODT disintegrating tablet 4 mg Given 12/07/2019 12:0 7 PM COLLECTIONS ASSOCIATE 4 mg (ZOFRAN-ODT) 4 mg, sublingual, Once, On Tue12/07/19 at 1200, For 1 dose, Pre-Op, When splitting ODT at bedside, handle with gloves and a pill splitter to prevent moisture contact. oxymetazoline 0.05 % nasal spray Given 12/07/2019 1:42 PM COLLECTIONS ASSOCIATE 1 application (AFRIN) As needed, Starting on Tue12/07/19 at 1342, Intra-Op scopolamine base 1 mg Medication Applied 12/07/2019 12:11 PM 1 patch Behind Right over 3 days 1 patch COLLECTIONS ASSOCIATE Ear (TRANSDERM SCOP) 1 patch, transdermal, Administer [...] Recently Administered Medications Times are shown in COLLECTIONS ASSOCIATE. Scheduled Medication Order 12/05/2019 12/06/2019 12/07/2019 acetaminophen [...] (COMPLETED) 1251 (Given - Provider: Gini Garcia, AIR HOLE DRILLER, PRODUCTION CELL LEADER) 1,250 mg (rounded from 1,146 mg = [...] 1211 (Medication Applied - Provider: Steph Gallo R.N.)1640 (Due: Medication Removed - Provider: Discharge Provider, [...]
--- OUTSIDE RECORDS SUMMARY | 2022-08-08 23:06 | XMS_ITS | Encounter Summary ---
:1965 Author Organization [facility] Address [address] [place] [address] Care Team Providers Name Role Phone Unavailable [...] you attend taoist or Patient refused 2021 congregational services? Do [...] 12/07/2019 12:15 Results for this EXAM PM SKIN PASS OPERATOR procedure are i n the results section. documented in this encounter Results NOSE-Otorhinolaryngology Image Exam (12/07/2019 12:15 PM SKIN PASS OPERATOR) Specimen (Source) Anatomical Collection Method Collection Time Re ceived Time Location / / Volume Laterality 12/07/2019 12:15 PM SKIN PASS OPERATOR Narrative [facility] - 12/07/2019 2:07 PM SKIN PASS OPERATOR This order has been created and [...]
--- OUTSIDE RECORDS SUMMARY | 2022-08-08 23:06 | XMS_ITS | Encounter Summary ---
:1965 Author Organization [facility] Address [address] [place] [address] Care Team Providers Name Role Phone Unavailable [...] you attend sabianist or Patient refused 2021 mandaeism services? Do [...] 11/29/2019 3:10 Results for this EXAM PM CADDIE SUPERVISOR procedure are i n the results section. documented in this encounter Results NOSE-Otorhinolaryngology Image Exam (11/29/2019 3:10 PM CADDIE SUPERVISOR) Specimen (Source) Anatomical Collection Method Collection Time Re ceived Time Location / / Volume Laterality 11/29/2019 3:08 PM CADDIE SUPERVISOR Narrative [facility] - 11/29/2019 3:58 PM CADDIE SUPERVISOR This order has been created and auto-finalized [...]
--- OUTSIDE RECORDS SUMMARY | 2022-08-08 23:06 | XMS_ITS | Encounter Summary ---
:[address] [facility] Address [address] [place] [address] Care Team Providers Name Role Phone Unavailable [...] you attend temple or Patient refused 2021 episcopalian services? Do [...] 12/18/2019 1:57 Results for this EXAM PM TOOL MACHINE SET UP OPERATOR procedure are i n the results section. documented in this encounter Results NOSE-Otorhinolaryngology Image Exam (12/18/2019 1:57 PM TOOL MACHINE SET UP OPERATOR) Specimen (Source) Anatomical Collection Method Collection Time Re ceived Time Location / / Volume Laterality 12/18/2019 1:57 PM TOOL MACHINE SET UP OPERATOR Narrative [facility] - 12/18/2019 1:57 PM TOOL MACHINE SET UP OPERATOR This order has been created and [...]
--- OUTSIDE RECORDS SUMMARY | 2022-08-08 23:06 | XMS_ITS | Encounter Summary ---
:1965 Author Organization [facility] Address [address] [place] [address] Care Team Providers Name Role Phone Unavailable Primary Care Provider Unavailable Encounter Details Date Type Department Care Team Description 12/07/2019 Hospital Encounter [facility] MAIN OR Darlin Olmedo, [address] [facility] [place] [address] [phone] [place] [address] [place] [address] Social History Tobacco Use Types [...] you attend uatsdin or Patient refused 2021 oriental orthodox services? [...] Comments Blood Pressure 114/72 12/07/2019 3:30 PM BLOOD SPLATTER ANALYST Pulse 75 12/07/2019 4:25 PM BLOOD SPLATTER ANALYST Temperature 36.5 ??C (97.7 ??F) 12/07/2019 2:32 PM BLOOD SPLATTER ANALYST Respiratory Rate 15 12/07/2019 4:25 PM BLOOD SPLATTER ANALYST Oxygen Saturation 94% 12/07/2019 4:25 PM BLOOD SPLATTER ANALYST Inhaled Oxygen Concentration - - Weight - [...] saline sinus rinse kit (suchas NeIron or Rye). - Follow the directions on the bottle [...] of discharge, please contact our office at [phone] to inquire. If you are to follow [...] please call the [facility] at and ask to speak to the ENT resident integrity consultant. D SPLATTER ANALYST AttachmentsThe following attachments cannot be sent through Care Everywhere.Your Scopolamine Patch (Mauritanian)documented in this encounter Medications at Time of [...] mg daily as 0 11/13/2002/02/2021 tablet needed. varenicline (CHANTIX JULIANE) Use as [...] Extradural computer navigation was registered according to soap slabber's guidelines and confirmed to be accurate within [...] 5 mL Implants None Darlin Olmedo M.D. D SPLATTER ANALYST Brief Op Note - Jey Santana M.D. [...] Loss None Implants None Jey Santana M.D. 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 Case Notes FRONT MAKER LOCKSTITCH 10:37 documented in this encounter Visit Diagnoses Not on filedocumented in this encounter Administered Medications Inactive Administered Medications - up to 3 most recent administrations Medication Order MAR Action Action Date Dose Rate Site acetaminophen injection 1,000 New Bag 12/07/2019 2:38 PM 1,000 mg 400 mL/hr mg (OFIRMEV) BLOOD SPLATTER ANALYST 1,000 mg, intravenous, at 400 mL/hr, Administer [...] 1,000 mg (TYLENOL) Given 12/07/2019 12:06 PM BLOOD SPLATTER ANALYST 1,000 mg 1,000 mg, oral, Once, On Tue12/07/19 at 1200, For 1 dose, Pre-Op aprepitant capsule 40 mg (EMEND) Given 12/07/2019 12:06 PM BLOOD SPLATTER ANALYST 40 mg 40 mg, oral, Once as needed, prevent ponv, Starting on Tue12/07/19 at 1145, For 1 dose, Pre-Op caffeine tablet 200 mg Given 12/07/2019 12:06 PM BLOOD SPLATTER ANALYST 200 mg 200 mg, oral, Once as needed, pre-op to prevent caffeine withdrawal headache or to enhance emergence from anesthesia/sedation, Starting on Tue12/07/19 at 1145, For 1 dose, Pre-Op, With sips droperidol injection 0.625 mg (INAPSINE) Given 12/07/2019 2:37 PM BLOOD SPLATTER ANALYST 0.625 mg 0.625 mg, intravenous, Every 6 [...] 25 mcg (SUBLIMAZE) Given 12/07/2019 2:32 PM BLOOD SPLATTER ANALYST 25 mcg 25 mcg, intravenous, Every 2 min PRN, For pain 4 or greater (maximum 100 mcg). If max dose of Fentanyl is reached and if pain is greater than 4, discontinue Fentanyl: give Hydromorphone, Starting on Tue12/07/19 at 1145, Pre-Op ketamine injection 10 mg (KETALAR) Given 12/07/2019 2:37 PM BLOOD SPLATTER ANALYST 10 mg 10 mg, intravenous, Once as needed, Pain sedation mismatch AND RASS score less than -1, Starting on Tue12/07/19 at 1430, For 1 dose, PACU (only) lactated ringers New Bag 12/07/2019 3:48 PM BLOOD SPLATTER ANALYST 20 mL/hr 20 mL/hr 20 mL/hr, intravenous, Continuous, Starting on Tue12/07/19 at 1400, PACU & Post-Op Continued from OR 12/07/2019 2:25 PM BLOOD SPLATTER ANALYST 20 mL/hr 20 mL/hr metoprolol tablet 12.5 [...] 2 mg (VERSED) Given 12/07/2019 12:28 PM BLOOD SPLATTER ANALYST 2 mg 2 mg, intravenous, Once as needed, anxiety, sedation, Starting on Tue12/07/19 at 1145, For 1 dose, Pre-Op ondansetron ODT disintegrating tablet 4 mg Given 12/07/2019 12:0 7 PM BLOOD SPLATTER ANALYST 4 mg (ZOFRAN-ODT) 4 mg, sublingual, Once, On Tue12/07/19 at 1200, For 1 dose, Pre-Op, When splitting ODT at bedside, handle with gloves and a pill splitter to prevent moisture contact. scopolamine base 1 mg Medication Applied 12/07/2019 12:11 PM 1 patch Behind Right over 3 days 1 patch BLOOD SPLATTER ANALYST Ear (TRANSDERM SCOP) 1 patch, transdermal, Administer [...] Recently Administered Medications Times are shown in BLOOD SPLATTER ANALYST. Scheduled Medication Order 12/05/2019 12/06/2019 12/07/2019 acetaminophen [...] 1251 (Given - Provider: Gini Garcia APRN, POKER ROOM MANAGER) 1,250 mg (rounded from 1,146 mg = [...] 1211 (Medication Applied - Provider: Steph Gallo R.N.)6361 (Due: Medication Removed - Provider: Discharge Provider, [...]
--- OUTSIDE RECORDS SUMMARY | 2022-08-08 23:06 | XMS_ITS | Encounter Summary ---
:1965 Author Organization [facility] Address [address] [place] [address] Care Team Providers Name Role Phone Unavailable Primary Care Provider Unavailable Reason for Referral Outpatient (Routine) - Closed Specialty Diagnoses / Procedures Referred By Contact Refer red To Contact Otorhinolaryngology Darlin Olmedo M.D . [address] [phone] Referral ID Status Reason Start Date Expiration Date Visits Requ ested Visits Authorized [id number] Closed 12/18/2019 12/17/2020 1 1 ADMINISTRATOR Reason for Visit Outpatient (Routine) - Closed Specialty Diagnoses / Procedures Referred By Contact Refer red To Contact Otorhinolaryngology Darlin Olmedo M.D . [address] [address] Referral ID Status Reason Start Date Expiration Date Visits Requ ested Visits Authorized [id number] Closed 11/29/2019 11/28/2020 1 1 Encounter Details Date Type Department Care Team Description 12/18/2019 Office Visit Department of Darlin Olmedo Mucocele Nasa l Sinus Otorhinolaryngology jimmy Brumfield M.D. (Primary Dx) [address] [place] [phone] Social History Tobacco Use Types Packs/Day Years [...] you attend taoist or Patient refused 2021 buddhist services? Do [...] we will refer to neurology headache clinic. ADMINISTRATOR documented in this encounter Plan of [...]
--- OUTSIDE RECORDS SUMMARY | 2022-08-08 23:06 | XMS_ITS | Encounter Summary ---
:1965 Author Organization [facility] Address [address] [place] [address] Care Team Providers Name Role Phone Unavailable Primary Care Provider Unavailable Reason for Visit Reason Onset Date Comments Medication Question 01/08/2020 Encounter Details Date Type Department Care Team Description 01/08/2020 Clinical Department of [place], Medication Communication Otorhinolaryngology in [place], [place] Lilian [address] [place] [address] [place] [phone] [place] [address] Social History Tobacco Use Types Packs/Day Years [...] you attend methodist or Patient refused 2021 latter-day services? Do [...] not covered. Patient will do regular Flonase ICULTURE WORKER Telephone Encounter - Donna Martines - 01/08/2020 4:21 PM CST [facility] called about the Fluticasone Propionate (Flonase) prescription that was put through today. The insurance will not cover it because at the end of the SIG it says Sensimist. Please call the pharmacy at [phone], or place another order. Thank you, Donna ICULTURE WORKER documented in this encounter Plan of Treatment Not on filedocumented as of this encounter Visit Diagnoses Not on filedocumented in this encounter Additional Health Concerns Assessment Noted Time PHQ-9 Depression Total Score: 5 04/05/2019 8:00 AM CDT documented as of this encounter
--- OUTSIDE RECORDS SUMMARY | 2022-08-08 23:06 | XMS_ITS | Encounter Summary ---
:1965 Author Organization [facility] Address [address] [place] [address] Care Team Providers Name Role Phone Unavailable Primary Care Provider Unavailable Encounter Details Date Type Department Care Team Description 10/09/2019 Orders Only Department of Otorhinolaryngology Alana Engel, in [facility] [address] [place] [address] 200 [place] [phone] [place], [place] [phone] Social History Tobacco Use Types Packs/Day Years [...] you attend restorationist or Patient refused 2021 confucianist services? Do [...]
--- OUTSIDE RECORDS SUMMARY | 2022-08-08 23:07 | XMS_ITS | Encounter Summary ---
:1965 Author Organization [facility] Address [address] [place] [address] Care Team Providers Name Role Phone Unavailable Primary Care Provider Unavailable Encounter Details Date Type Department Care Team Description 10/03/2019 Clinical Communication Department of Robert Diehl, Neurology in .. [place], [place] 200 [facility] 200 [place] [phone] Social History Tobacco Use Types Packs/Day Years [...] you attend restorationist or Patient refused 2021 sikhism services? Do [...] Coby this is for you, records request TRAINER Telephone Encounter - Janis Preston R.N. - 10/03/2019 3:11 PM CST Called patient back with update about aspirin per Dr. Diehl. Patient voiced understanding that she will stop the warfarin and continue baby aspirin. She wants notes about her visit sent to her DrBrittonin Mercer. Janis Preston R.N. TRAINER Telephone Encounter - Janis Preston R.N. - [...] dose and warfarin discontinuation. Janis Preston R.N. TRAINER documented in this encounter Plan of Treatment Not on filedocumented as of this encounter Visit Diagnoses Not on filedocumented in this encounter Additional Health Concerns Assessment Noted Time PHQ-9 Depression Total Score: 5 04/05/2019 8:00 AM CDT documented as of this encounter
--- OUTSIDE RECORDS SUMMARY | 2022-08-08 23:07 | XMS_ITS | Encounter Summary ---
:1965 Author Organization [facility] Address [address] [place] [address] Care Team Providers Name Role Phone Unavailable Primary Care Provider Unavailable Reason for Referral Outpatient (Routine) - Closed Specialty Diagnoses / Procedures Referred By Contact Refer red To Contact Neurology Robert Diehl M. D. [facility] [address] [place] [phone] Referral ID Status Reason Start Date Expiration Date Visits Requ ested Visits Authorized [id number] Closed 06/28/2019 06/27/2020 1 1 Reason for Visit Outpatient (Routine) - Closed Specialty Diagnoses / Procedures Referred By Contact Refer red To Contact Neurology Diagnoses Stroke (HCC) Thrombosis Arterial (HCC) Aneurysm Cerebral Unruptured (HCC) Fernie Soriano M.D. [facility] [address] [place] [phone] Referral ID Status Reason Start Date Expiration Date Visits Requ ested Visits Authorized [id number] Closed 03/31/2019 03/30/2020 1 1 Encounter Details Date Type Department Care Team Description 06/28/2019 Office Visit Department of Robert Diehl Fatigue ( Primary Dx); Neurology in [place] Stroke (HCC); [place], [place] 200 [facility] Thrombosis Arterial (HCC); [address] [place] [address] Aneurysm Cerebral Unruptured (HCC) [place] [phone] Social History Tobacco Use Types Packs/Day Years [...] you attend catholic or Patient refused 2021 presybeterian services? Do [...] Fatigue PUL Home Overnight Oximetry 2. Stroke ([facility]) Neurology - Cerebrovascular consult (clinic) MR Neck Angiogram without and with IV Contrast PM Device interrogation (clinic) 3. Thrombosis Arterial ([facility]) Neurology - Cerebrovascular consult (clinic) MR Neck Angiogram without and with IV Contrast PM Device interrogation (clinic) 4. Aneurysm Cerebral Unruptured ([facility]) Neurology - Cerebrovascular consult (clinic) documented in this encounter Plan of Treatment Scheduled Orders Name Type Priority Associated Diagnoses [facility] Overnight PFT Routine Fatigue Expected: 06/28/2019 Oximetry (Approximate), Expires: 06/28/2022 Scheduled Referrals Name Type Priority Associated Diagnoses Order S [facility] Neurology office Outpatient Referral Routine Expe cted: [...]
--- OUTSIDE RECORDS SUMMARY | 2022-08-08 23:07 | XMS_ITS | Encounter Summary ---
:1965 Author Organization [facility] Address [address] [place] [address] Care Team Providers Name Role Phone Unavailable Primary Care Provider Unavailable Reason for Visit Reason Onset Date Comments Nicotine Dependence 09/04/2019 Encounter Details Date Type Department Care Team Description 09/04/2019 Clinical Department of Tesfaye Ortega, Nicotine Janet grady Communication Nicotine Kenna D, Dependence, [facility]ordy Alex[facility] in [place], [place] [address] [place] [address] Social History Tobacco Use Types Packs/Day Years [...] you attend religion or Patient refused 2021 alevism services? Do [...] or slept in a penitentiary (including now)? Sex Assigned at Date Recorded Female 03/01/2019 10:12 AM CDT documented as of this encounter Plan of Treatment Not on filedocumented as of this encounter Visit Diagnoses Not on filedocumented in this encounter Additional Health Concerns Assessment Noted Time PHQ-9 Depression Total Score: 5 04/05/2019 8:00 AM CDT documented as of this encounter
--- OUTSIDE RECORDS SUMMARY | 2022-08-08 23:07 | XMS_ITS | Encounter Summary ---
:1965 Author Organization [facility] Address [address] [place] [address] Care Team Providers Name Role Phone Unavailable Primary Care Provider Unavailable Encounter Details Date Type Department Care Team Description 04/04/2019 - Hospital Encounter [facility] Blanca, Stroke (H CC) (Primary Dx); 04/05/2019 [facility] M.D. Decline Functional Status; [facility], [address] [place] [address] Second floor [phone] [place] [address] [place], [place] (Work) [phone] Social History Tobacco Use [...] up with your primary care provider in [place], [place] for ongoing monitoring of this. - Follow-up in [facility] (Dr. Diehl) in approximately 3 months??? [...] use disorder who initially was admitted to [facility] from 03/29/2019 to 03/31/2019 after presenting [...] use disorder who initially was admitted to [facility] from 03/29/2019 to 03/31/2019 after presenting [...] up with your primary care provider in [place], [place] for ongoing monitoring of this. - Follow-up in [facility] (Dr. Diehl) in approximately 3 months??? [...] only on level surfaces with therapist managing information security associate while inpatient. Stairs not assessed. RECOMMENDATIONS: Recommend [...] by Jessie Candelario P.T., D.P.T. Contact information: [facility], [address] Beryl Gaytan, Laquita Guardado - 04/05/2019 7:21 AM CDT Take a copy of this after visit summary to your appointment(s). [place], [place] April 10, 2019 -Tuesday --11:15 AM - Hospital Follow-Up with Dr. Rosalva MD Colleague of Juana Franz MD primary care provider, at [facility] RECOMMENDATIONS: * * [facility] You may have outpatient appointments at [facility] that changed during your hospitalization. Refer to your [facility] Patient Visit Guide (PVG) for the most current schedule of appointments and detailed instructions of tests/procedures. Call [phone], if you did not receive an PVG or need to CANCEL any [facility] appointment(s). You were discharged from the Neurology [...] No acute overnight events. Vertigo has improved. [id number]-tv-[id number] headache continues. No new symptoms or concerns. [...] use disorder who initially was admitted to [facility] from 03/29/2019 to 03/31/2019 after presenting [...] being followed by a provider at the [facility]. Dose was increased to 1.5 tabs (of [...] Noted ??? Rhinosinusitis Chronic 03/01/2019 ??? Stroke ([facility]) 03/29/2019 ??? Anxiety Generalized Disorder 03/29/2019 ??? Chronic Pain Syndrome 03/29/2019 ??? Fibromyalgia 03/29/2019 ??? 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 Sinusitis Recurrent 03/29/2019 ??? 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 Nicotine Dependence Cigarettes 03/29/2019 ??? 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 Transient Ischemic Attack ??? Aneurysm Cerebral Unruptured ([facility]) 03/30/2019 ??? Patent Foramen Ovale ([facility]) 03/31/2019 Current Facility-Administered Medications: ??? acetaminophen tablet [...] shows no new changes. MRI may not private branch exchange service adviser at this point as she is now [...] 0 and symmetric in all muscle groups. Eckeht-[id number]-[id number] and heel- montes testing is normal. Deep [...] to clarify this, but would not necessarily private branch exchange service adviser. An MRI brain with and without contrast [...] baseline. Have triaged to therapy only; no manager radiation consult appears to be necessary at this time. If at any time, the therapists or referring service feel that a manager radiation review is necessary, please send a new [...] Prior Function / Occupational Profile Level of [place]: Independent with ADLs and functional transfers Lives [...] Goal Met 04/05/19 Progress: Improving as expected @[id number])@ Plan Patient agrees with the plan of [...] Prior Function / Occupational Profile Level of [place]: Independent with ADLs and functional transfers Lives [...] for safety and for therapist to bring information security associate, no obvious loss of balance noted, patient appeared steady with quick turns Training/Intervention: supervision for therapist to bring information security associate Response: Patient mobilizing 200+ meters with no [...] for safety and for therapist to bring information security associate, no obvious loss of balance noted, patient appeared steady with quick turns Training/Intervention: supervision for therapist to bring information security associate Response: Patient mobilizing 200+ meters with no [...] use disorder who initially was admitted to [facility] from 03/29/2019 to 03/31/2019 after presenting [...] Potassium, S 4.1 3.6 - 5.2 04/05/2019 [facility] mmol/L 9:28 AM CDT LABORATORIES - [facility] Sodium, S 142 135 - 145 04/05/2019 [facility] mmol/L 9:28 AM CDT [facility] - [facility] Chloride, S 105 98 - 107 04/05/2019 [facility] mmol/L 9:28 AM CDT [facility] - [facility] Bicarbonate, S 25 22 - 29 04/05/2019 [facility] mmol/L 9:28 AM CDT [facility] - [facility] Anion Gap 12 7 - 15 04/05/2019 [facility] 9:28 AM CDT [facility] - [facility] BUN (Blood Urea 20 6 - 21 04/05/2019 [facility] Nitrogen), S mg/dL 9:28 AM CDT [facility] Creatinine 0.88 0.59 - 04/05/2019 [facility] 1.04 mg/dL 9:28 AM CDT LABORATORIES [facility] eGFR-Non 74 >=60 04/05/2019 [facility] Black/ mL/min/BSA 9:28 AM CDT LABORATORIES [facility] Comment: ----ADDITIONAL INFORMATION---- Estimated GFR calculated using the 2009 CKD_EPI creatinine equation. eGFR-Black/ 86 >=60 mL/min/BSA 04/05/2019 9:28 [facility] CDT LABORATORIES [facility] Comment: ----ADDITIONAL INFORMATION---- Estimated GFR calculated using the 2009 CKD_EPI creatinine equation. Calcium, Total, S 9.2 8.6 - 10.0 mg/dL 04/05/2019 9:28 AM [facility] Glucose, S 124 70 - 140 mg/dL 04/05/2019 9:28 AM [facility] CDT [facility] Specimen Anatomical Collection Method Collection Time Receive d Time (Source) Location / / Volume Laterality Blood (Blood, 04/05/2019 8:07 AM 04/05/20 19 8:26 Venous) CDT AM CDT Clemente Aiken M.D. LAB BLOOD ADD-ON Performing Organization Address City/State/ZIP Code Phon e Number [facility] LABORATORIES - [address] [place] [address] [facility] CBC with Differential, Blood (04/05/2019 8:07 AM CDT) [facility] Method Time Signature Hemoglobin 12.9 11.6 - 04/05/2019 [facility] 15.0 g/dL 8:38 AM CDT LABORATORIES [facility] Hematocrit 38.0 35.5 - 04/05/2019 [facility] 44.9 % 8:38 AM CDT LABORATORIES [facility] Erythrocytes 3.94 3.92 - 04/05/2019 [facility] 5.13 8:38 AM CDT LABORATORIES - x10(12)/L [facility] MCV 96.4 78.2 - 04/05/2019 [facility] 97.9 fL 8:38 AM CDT LABORATORIES [facility] RBC Distrib Width 13.2 12.2 - 04/05/2019 [facility] 16.1 % 8:38 AM CDT [facility] - [facility] Platelet Count 226 157 - 371 04/05/2019 [facility] x10(9)/L 8:38 AM CDT [facility] - [facility] Leukocytes 5.5 3.4 - 9.6 04/05/2019 [facility] x10(9)/L 8:38 AM CDT [facility]ATOR[facility] - [facility] Neutrophils 3.00 1.56 - 04/05/2019 [facility] 6.45 8:38 AM CDT LABORATORIES - x10(9)/L [facility] Lymphocytes 1.84 0.95 - 04/05/2019 [facility] 3.07 8:38 AM CDT LABORATORIES - x10(9)/L [facility] Monocytes 0.37 0.26 - 04/05/2019 [facility] 0.81 8:38 AM CDT LABORATORIES - x10(9)/L [facility] Eosinophils 0.22 0.03 - 04/05/2019 [facility] 0.48 8:38 AM CDT LABORATORIES - x10(9)/L [facility] Basophils 0.05 0.01 - 04/05/2019 [facility] 0.08 8:38 AM CDT LABORATORIES - x10(9)/L [facility] Specimen Anatomical Collection Method Collection Time Receive d Time (Source) Location / / Volume Laterality Blood (Blood, 04/05/2019 8:07 AM 04/05/20 19 8:26 Venous) CDT AM CDT Clemente Aiken M.D. LAB BLOOD ADD-ON Performing Organization Address City/State/ZIP Code Phon e Number [facility] LABORATORIES - [address] [place], [place] [address] [facility] (ABNORMAL) Prothrombin Time (PT/INR) (04/05/2019 8:07 AM CDT) [facility] gist Method Time Signature Prothrombin 21.9 (H) 9.4 - 04/05/2019 [facility] Time, P 12.5 sec 8:44 AM CDT LABORATORIES [facility] INR 2.0 0.9 - 1.1 04/05/2019 [facility] 8:44 AM CDT LABORATORIES [facility] Comment: ----ADDITIONAL INFORMATION---- Standard intensity warfarin therapeutic range: 2.0 to 3.0 ?? High intensity warfarin therapeutic rang e: 2.5 to 3.5 Specimen Anatomical Collection Method Collection Time Receive d Time (Source) Location / / Volume Laterality Blood (Blood, 04/05/2019 8:07 AM 04/05/20 8:26 Venous) CDT AM CDT Clemente Aiken M.D. LAB BLOOD ADD-ON Performing Organization Address City/State/ZIP Code Phon e Number [facility] LABORATORIES - [address] [place], [place] [address] [facility] CT Head Neck Angiogram with [...] CDT) athologist Signature Heparin 0.81 IU/mL 04/04/2019 [facility] Anti-Xa, P 7:40 PM CDT [facility]ATORIES - [facility] Comment: UFH therapeutic range: ?? [...] LAB BLOOD NON ADD-ON Performing Organization Address [facility] Phon e Number [facility] LABORATORIES - [address] [place], [place] [address] [facility] (ABNORMAL) Prothrombin Time (PT/INR) (04/04/2019 5:25 PM CDT) [facility] Recordant Method Time Signature Prothrombin 20.1 (H) 9.4 - 04/04/2019 [facility] Time, P 12.5 sec 5:54 PM CDT LABORATORIES [facility] INR 1.8 0.9 - 1.1 04/04/2019 [facility] 5:54 PM CDT [facility] - [facility] Comment: ----ADDITIONAL INFORMATION---- Standard intensity [...] Organization Address [facility] Phon e Number [facility] LABORATORIES - [address] [place] [address] [facility] (ABNORMAL) CBC with Differential, Blood (04/04/2019 5:25 PM CDT) [facility] Recordant Method Time Signature Hemoglobin 12.1 11.6 - 04/04/2019 [facility] 15.0 g/dL 5:35 PM CDT [facility] Hematocrit 36.3 35.5 - 04/04/2019 [facility] 44.9 % 5:35 PM CDT [facility] Erythrocytes 3.76 (L) 3.92 - 04/04/2019 [facility] 5.13 5:35 PM CDT LABORATORIES - x10(12)/L [facility] MCV 96.5 78.2 - 04/04/2019 [facility] 97.9 fL 5:35 PM CDT [facility]ATORIES - [facility] RBC Distrib 12.9 12.2 - 04/04/2019 [facility] Width 16.1 % 5:35 PM CDT LAB[facility]ATORIES - [facility] Platelet Count 224 157 - 371 04/04/2019 [facility] x10(9)/L 5:35 PM CDT [facility]ATORIES - [facility] Leukocytes 4.6 3.4 - 9.6 04/04/2019 [facility] x10(9)/L 5:35 PM CDT LAB[facility]ATORIES - [facility] Neutrophils 2.09 1.56 - 04/04/2019 [facility] 6.45 5:35 PM CDT LABORATORIES - x10(9)/L [facility] Lymphocytes 1.88 0.95 - 04/04/2019 [facility] 3.07 5:35 PM CDT LABORATORIES - x10(9)/L [facility] Monocytes 0.39 0.26 - 04/04/2019 [facility] 0.81 5:35 PM CDT LABORATORIES - x10(9)/L [facility] Eosinophils 0.18 0.03 - 04/04/2019 [facility] 0.48 5:35 PM CDT LABORATORIES - x10(9)/L [facility] Basophils 0.04 0.01 - 04/04/2019 [facility] 0.08 5:35 PM CDT LABORATORIES - x10(9)/L [facility] Specimen Anatomical Collection Method Collection Time Receive d Time (Source) Location / / Volume Laterality Blood (Blood, 04/04/2019 5:25 PM 04/04/20 19 5:32 Venous) CDT PM CDT Clemente Aiken M.D. LAB BLOOD ADD-ON Performing Organization Address City/State/ZIP Code Phon e Number [facility] LABORATORIES - [address] [place], [place] [address] [facility] (ABNORMAL) APTT (Activated Partial Thromboplastin Time) (04/04/2019 5:25 PM CDT) Analysis Performed At Patho logist Time Signature Activated 44 (H) 25 - 37 04/04/2019 [facility] Partial sec 5:57 PM CDT LABORATORIES - [facility] Specimen Anatomical Collection Method Collection Time Receive d Time (Source) Location / / Volume Laterality Blood (Blood, 04/04/2019 5:25 PM 04/04/20 19 5:32 Venous) CDT PM CDT Clemente Aiken M.D. LAB BLOOD ADD-ON Performing Organization Address City/[facility]/ZIP Code Phon e Number [facility] LABORATORIES - [address] [place] [address] [facility] Magnesium (04/04/2019 5:25 PM CDT) P athologist Signature Magnesium, S 2.3 1.7 - 2.3 04/04/2019 [facility] mg/dL 6:21 PM CDT LABORATORIES - [facility] Specimen Anatomical Collection Method Collection Time Receive d Time (Source) Location / / Volume Laterality Blood (Blood, 04/04/2019 5:25 PM 04/04/20 19 5:40 Venous) CDT PM CDT Clemente Aiken M.D. LAB BLOOD ADD-ON Performing Organization Address City/[facility]/ZIP Code Phon e Number [facility] LABORATORIES - [address] [place] [address] [facility] Phosphorus Inorganic (04/04/2019 5:25 PM CDT) Analysis Performed At Patho logist Time Signature Phosphorus 3.8 2.5 - 4.5 04/04/2019 [facility] (Inorganic), S mg/dL 6:21 PM CDT LABORATORIES - [facility] Specimen Anatomical Collection Method Collection Time Receive d Time (Source) Location / / Volume Laterality Blood (Blood, 04/04/2019 5:25 PM 04/04/20 19 5:40 Venous) CDT PM CDT Clemente Aiken M.D. LAB BLOOD ADD-ON Performing Organization Address City/[facility]/ZIP Code Phon e Number [facility] LABORATORIES - [address] [place], [place] [address] [facility] (ABNORMAL) Comprehensive Metabolic Panel (04/04/2019 5:25 PM CDT) Patholo gist Method Time Signature Potassium, S 3.5 (L) 3.6 - 5.2 04/04/2019 [facility] mmol/L 6:21 PM CDT LABORATORIES [facility] Sodium, S 141 135 - 145 04/04/2019 [facility] mmol/L 6:21 PM CDT [facility] - [facility] Chloride, S 105 98 - 107 04/04/2019 [facility] mmol/L 6:21 PM CDT [facility] - [facility] Bicarbonate, S 23 22 - 29 04/04/2019 [facility] mmol/L 6:21 CDT [facility]ATORIES - [facility] Anion Gap 13 7 - 15 04/04/2019 [facility] 6:21 PM CDT [facility] - [facility] BUN (Blood Urea 20 6 - 21 04/04/2019 [facility] Nitrogen), S mg/dL 6:21 PM CDT [facility]ATORIES - [facility] Creatinine 0.90 0.59 - 04/04/2019 [facility] 1.04 6:21 CDT LABORATORIES - mg/dL [facility] eGFR-Non 72 >=60 04/04/2019 [facility] Black/ mL/min/BS 6:21 CDT LABORATORIES - [place] [facility] Comment: ----ADDITIONAL INFORMATION---- Estimated GFR calculated using the 2009 CKD_EPI creatinine equation. eGFR-Black/ 83 >=60 mL/min/BSA 04/04/2019 6:21 [facility] [place] CDT LABORATORIES - [facility] Comment: ----ADDITIONAL INFORMATION---- Estimated GFR calculated using the 2009 CKD_EPI creatinine equation. Calcium, Total, S 8.6 8.6 - 10.0 04/04/2019 6:21 [facility] mg/dL CDT LABORATORIES [facility] Glucose, S 96 70 - 140 04/04/2019 6:21 [facility] mg/dL CDT LABORATORIES [facility] Protein, Total, S 6.2 (L) 6.3 - 7.9 04/04/2019 6:[address] [facility] g/dL CDT LABORATORIES [facility] Albumin, S 4.1 3.5 - 5.0 04/04/2019 6:21 [facility] g/dL PM CDT LABORATORIES [facility] Aspartate 21 8 - 43 U/L 04/04/2019 6:21 [facility] Aminotransferase (AST), CDT LABORA TORIES - S [facility] Alkaline Phosphatase, S 73 35 - 104 U/L 04/04/2019 6: 21 [facility] CDT LABORATORIES [facility] Alanine Aminotransferase 14 7 - 45 U/L 04/04/2019 6:2 1 [facility] (ALT), S PM CDT LABORATORIES - [facility] Bilirubin, Total, S 0.2 <=1.2 mg/dL 04/04/2019 6:21 [facility] PM CDT LABORATORIES - [facility] Specimen Anatomical Collection Method Collection Time Receive d Time (Source) Location / / Volume Laterality Blood (Blood, 04/04/2019 5:25 PM 04/04/20 19 5:40 Venous) CDT PM CDT Clemente Aiken M.D. LAB BLOOD ADD-ON Performing Organization Address City/State/ZIP Code Phon e Number [facility] LABORATORIES - [address] [place], [place] [address] [facility] documented in this encounter Visit [...] Kiara Curry R.N., CRN - Comment: LOT# [id number]) 1-200 mL, intravenous, Once in imaging, contrast, [...]
--- OUTSIDE RECORDS SUMMARY | 2022-08-08 23:07 | XMS_ITS | Encounter Summary ---
:1965 Author Organization [facility] Address [address] [place] [address] Care Team Providers Name Role Phone Unavailable Primary Care Provider Unavailable Encounter Details Date Type Department Care Team Description 10/02/2019 Orders Only Department of Robert Diehl Thrombosi s Arterial Neurology in [place] ([facility]) (Primary Dx) [place], [place] [address] [place] [address] 200 [place] [id number] Social History Tobacco Use Types Packs/Day Years [...] of Outside MR Neck (10/02/2019 1:01 PM [facility]EL[facility]) Anatomical Region Laterality Modality Neuroradiology RST LOS, Neuroradiology ARZ LOS, N/A Magnetic Resonance Neuroradiology FLA LOS, Neck Specimen (Source) Anatomical Collection Method Collection Time Re ceived Time Location / / Volume Laterality 10/02/2019 1:03 PM [facility] Impressions 10/02/2019 1:18 PM [facility] Similar appearance of the distal right vertebral artery irregularity and mild narrowing at C1, r elated to the nonocclusive luminal thrombus, as seen on the prior CTA exams . MRA neck otherwise negative and unchanged. Narrative 10/02/2019 1:18 PM [facility] EXAM: ??INTERPRETATION OF OUTSIDE MR NECK COMPARISON: [...]
--- OUTSIDE RECORDS SUMMARY | 2022-08-08 23:07 | XMS_ITS | Encounter Summary ---
:1965 Author Organization [facility] Address [address] [place] [address] Care Team Providers Name Role Phone Unavailable Primary Care Provider Unavailable Reason for Visit Reason Onset Date Comments MRI from [facility] 10/02/2019 Dr. Diehl Encounter Details Date Type Department Care Team Description 10/02/2019 Clinical Communication Department of Robert Diehl MR [facility] [place] [facility] 200 [facility]) [place], [place] [address] [place] [address] [place], [place] [phone] (Work) [phone] Social History Tobacco Use Types Packs/Day Years [...] you attend scientologist or Patient refused 2021 taoist services? Do [...] with the radiology film room (Marlen) at [facility]. They have pushed the MRI and it should be here soon. T HANGER documented in this encounter Plan of Treatment Not on filedocumented as of this encounter Visit Diagnoses Not on filedocumented in this encounter Additional Health Concerns Assessment Noted Time PHQ-9 Depression Total Score: 5 04/05/2019 8:00 AM CDT documented as of this encounter
--- OUTSIDE RECORDS SUMMARY | 2022-08-08 23:07 | XMS_ITS | Encounter Summary ---
:1965 Author Organization [facility] Address [address] [place] [address] Care Team Providers Name Role Phone Unavailable Primary Care Provider Unavailable Encounter Details Date Type Department Care Team Description 06/28/2019 Hospital Encounter Department of Fernie Soriano Stroke ([facility]); Radiology, Jordy Alvarado M.D. Thrombosis Arterial ([facility]); Building, in [address] [place] [address] Aneurysm Cerebral Unruptured ([facility]) [place], [place] [address] [place] [id number] [place], [place] [phone] (Work) [phone] Social History Tobacco Use Types Packs/Day Years [...] you attend samaritan or Patient refused 2021 denominational services? Do [...] the ventral aspect (series 6 image s [id number]). The lumen remains significantly irregular and there [...] well seen. The RADHA, MCA, a nd DIE STAMPER branches are unremarkable in appearance. Stable postoperative [...] the ventral aspect (series 6 image s [id number]). The lumen remains significantly irregular and there [...] well seen. The RADHA, MCA, a nd DIE STAMPER branches are unremarkable in appearance. Stable postoperative [...]
--- OUTSIDE RECORDS SUMMARY | 2022-08-08 23:07 | XMS_ITS | Encounter Summary ---
:1965 Author Organization [facility] Address [address] [place] [address] Care Team Providers Name Role Phone Unavailable Primary Care Provider Unavailable Reason for Visit Reason Onset Date Comments Telephone call 04/24/2019 Blanca Encounter Details Date Type Department Care Team Description 04/24/2019 Clinical Communication Department of Blanca, Tele phone call Neurology in Nan Bose M.D. (Blanca) [place], [facility] [place], [place] [address] [place] [phone] [place], [place] [phone] (Work) [phone] Social History Tobacco Use Types Packs/Day Years [...] you attend hoahaoism or Patient refused 2021 zoroastrianism services? Do [...] The patient contacted Dr. Henry's office at [facility] for a PFO closure. Depending on your answer would decide if the patient was a candidate for PFO closure. They read your 04/04/18 hospital summary in PSYCHIATRIC, but the answer is unclear. Their fax is [phone]. thanks documented in this encounter Plan of Treatment Not on filedocumented as of this encounter Visit Diagnoses Not on filedocumented in this encounter Additional Health Concerns Assessment Noted Time PHQ-9 Depression Total Score: 5 04/05/2019 8:00 AM CDT documented as of this encounter
--- OUTSIDE RECORDS SUMMARY | 2022-08-08 23:07 | XMS_ITS | Encounter Summary ---
:1965 Author Organization [facility] Address [address] [place] [address] Care Team Providers Name Role Phone Unavailable Primary Care Provider Unavailable Reason for Visit Outpatient (Routine) - Closed Specialty Diagnoses / Procedures Referred By Contact Refer red To Contact Neurology Robert Diehl M. D. [facility] [address] [place] [phone] Referral ID Status Reason Start Date Expiration Date Visits Requ ested Visits Authorized [id number] Closed 06/28/2019 06/27/2020 1 1 Encounter Details Date Type Department Care Team Description 10/02/2019 Office Visit Department of Robert Diehl, Stroke (H CC) (Primary Dx); Neurology in M.D. Thrombosis Arterial (HCC) [place], [place] [address] [place] [address] [place] [phone] Social History Tobacco Use Types Packs/Day Years [...] you attend shinto or Patient refused 2021 confucianism services? Do you belong to any clubs or No 05/17/2022 organizations such as shinto groups, unions, fraBango or athletic groups, or school groups? How [...] of a magnetic resonance angiogram completed at [facility]. Unfortunately we do not have the [...] 1. Stroke (HCC) 2. 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
--- OUTSIDE RECORDS SUMMARY | 2022-08-08 23:07 | XMS_ITS | Encounter Summary ---
:1965 Author Organization [facility] Address [address] [place] [address] Care Team Providers Name Role Phone Unavailable Primary Care Provider Unavailable Encounter Details Date Type Department Care Team Description 10/02/2019 Ancillary Procedure Department of Robert Diehl Arterial Radiology jimmy Celaya M.D. ([facility]) [place], [place] [address] [place] [address] [address] [place] [phone] Social History Tobacco Use Types Packs/Day Years [...] you attend orthodoxy or Patient refused 2021 nondenominational services? Do [...] Robert Diehl M.D. - 10/02/2019 3:20 PM ASSEMBLY MANAGER STEP FINISHER: Would you please give the patient a [...] artery finding and the left paraclinoid aneurysm. MBLY MANAGER documented in this encounter Plan of Treatment Not on filedocumented as of this encounter Procedures Procedure Name Priority Date/Time Associated Comments Diagnosis INTERPRETATION OF RAD - Routine 10/02/2019 1:01 Thrombosis Result s for OUTSIDE MR NECK (most inpatients PM ASSEMBLY MANAGER Arterial (HCC) this p rocedure and all are in the outpatients) results section. documented in this encounter Results Interpretation of Outside MR Neck (10/02/2019 1:01 PM ASSEMBLY MANAGER) Anatomical Region Laterality Modality Neuroradiology RST LOS, Neuroradiology ARZ LOS, N/A Magnetic Resonance Neuroradiology FLA LOS, Neck Specimen (Source) Anatomical Collection Method Collection Time Re ceived Time Location / / Volume Laterality 10/02/2019 1:03 PM ASSEMBLY MANAGER Impressions 10/02/2019 1:18 PM ASSEMBLY MANAGER Similar appearance of the distal right vertebral artery irregularity and mild narrowing at C1, r elated to the nonocclusive luminal thrombus, as seen on the prior CTA exams . MRA neck otherwise negative and unchanged. Narrative 10/02/2019 1:18 PM ASSEMBLY MANAGER EXAM: ??INTERPRETATION OF OUTSIDE MR NECK [...]
--- OUTSIDE RECORDS SUMMARY | 2022-08-08 23:07 | XMS_ITS | Encounter Summary ---
:1965 Author Organization [facility] Address [address] [place] [address] Care Team Providers Name Role Phone Unavailable Primary Care Provider Unavailable Reason for Visit Reason Onset Date Comments Nicotine Dependence 08/30/2019 Encounter Details Date Type Department Care Team Description 08/30/2019 Clinical Department of Tesfaye Ortega, Nicotine Janet grady Communication Nicotine Kenna D, Dependence, Jordy Alex, [facility] in [place], [place] [address] [place] [address] Social History Tobacco Use Types Packs/Day Years [...] you attend faith or Patient refused 2021 spiritism services? Do [...]
--- OUTSIDE RECORDS SUMMARY | 2022-08-08 23:07 | XMS_ITS | Encounter Summary ---
:1965 Author Organization [facility] Address [address] [place] [address] Care Team Providers Name Role Phone Unavailable Primary Care Provider Unavailable Encounter Details Date Type Department Care Team Description 09/03/2019 Documentation Department of Neurology in Robert Fontanez M.D. [place], [place] 200 [facility] [[email or web address] 200 [place] [phone] (Wo rk) Social History Tobacco Use Types [...] attend oriental orthodox or Patient refused 2021 zoroastrianism services? Do [...]
--- OUTSIDE RECORDS SUMMARY | 2022-08-08 23:07 | XMS_ITS | Encounter Summary ---
:1965 Author Organization [facility] Address [address] [place] [address] Care Team Providers Name Role Phone Unavailable Primary Care Provider Unavailable Reason for Visit Reason Onset Date Comments Nicotine Dependence 04/26/2019 Encounter Details Date Type Department Care Team Description 04/26/2019 Clinical Department of Tesfaye Ortega, Nicotine Janet grady Communication Nicotine Kenna D, Dependence, Jordy Alex, [facility], in [place], [place] [address] [place] [address] Social History Tobacco Use Types Packs/Day Years [...]
--- OUTSIDE RECORDS SUMMARY | 2022-08-08 23:07 | XMS_ITS | Encounter Summary ---
:1965 Author Organization [facility] Address [address] [place] [address] Care Team Providers Name Role Phone Unavailable Primary Care Provider Unavailable Reason for Visit Reason Onset Date Comments wants to have MRI done closer to home before appt 09/03/2019 [facility] Encounter Details Date Type Department Care Team Description 09/03/2019 Clinical Communication Department of [facility] Robert cabrera nts to have MRI Neurology in [place], [place]itt[place] done closer to home [place], [facility] before appt [place], [place] ([facility]) [address] [facility] [address] [place], [place] [phone] (Work) [phone] Social History Tobacco Use Types Packs/Day Years [...] you attend restorationist or Patient refused 2021 restoration services? Do [...] for MRA faxed to Dr. Blackwell at [facility] at fax [phone]. Called the patient and left a message [...] like to have her MRI done at [facility] before her appointment with Dr. Diehl on 09/19. Or if she could get her MRI scheduled for the same day as she is here for her appointment. She doesn't want to drive 2 days in a row. She wanted the order sent to Dr. Blackwell so I guess just send notes to Dr. Clemente Blackwell at [facility] Phone- [phone] documented in this encounter Plan of Treatment Not on filedocumented as of this encounter Visit Diagnoses Not on filedocumented in this encounter Additional Health Concerns Assessment Noted Time PHQ-9 Depression Total Score: 5 04/05/2019 8:00 AM CDT documented as of this encounter
--- OUTSIDE RECORDS SUMMARY | 2022-08-08 23:08 | XMS_ITS | Encounter Summary ---
:1965 Author Organization [facility] Address [address] [place] [address] Care Team Providers Name Role Phone Unavailable [...] you attend mandaeism or Patient refused 2021 judaism services? Do [...] times a day for 5 days. esomeprazole (NexIUM) 40 Take 40 mg by [...]
--- OUTSIDE RECORDS SUMMARY | 2022-08-08 23:08 | XMS_ITS | Encounter Summary ---
:1965 Author Organization [facility] Address [address] [place] [address] Care Team Providers Name Role Phone Elsewhere, Pcp Primary Care Provider Unavailable Reason for Referral Outpatient (Routine) - Closed Specialty Diagnoses / Procedures Referred By Contact Refer red To Contact Otorhinolaryngology Diagnoses Sinus Nose Disorder Sinusitis Chronic Chris Mckeon [place] [facility] M.D. [address] [place] [address] Referral ID Status Reason Start Date Expiration Date Visits Requ ested Visits Authorized [id number] Closed 01/10/2019 01/10/2020 1 1 OR RESEARCH ASSOCIATE Encounter Details Date Type Department Care Team Description 01/10/2019 [facility] Mike, Sinu s Nose Disorder (Primary Dx); AND CLINICS Chris Celaya M.D. Sinusitis Chronic 1999 [facility] [address] [place] [address] [place], [place] [phone] Social History Tobacco Use Types Packs/Day Years [...] you attend scientology or Patient refused 2021 pentecostal services? Do [...] COVID19 Pending 01/31/2021 01/31/2021 01/31/2021 10:53 PM SENIOR RESEARCH ASSOCIATE COVID19 Pending 02/10/2021 02/11/2021 02/11/2021 1:09 AM CDT COVID19 Pending 12/29/2021 12/29/2021 12/29/2021 4:20 PM SENIOR RESEARCH ASSOCIATE COVID19 Pending 02/25/2022 02/25/2022 02/25/2022 3:59 PM CDT COVID19 Pending 05/17/2022 05/17/2022 05/17/2022 2:34 PM CDT COVID19 Pending 06/15/2022 06/15/2022 06/15/2022 8:24 PM CDT documented as of this encounter Care Teams Industrial Maintenance Millwright Relationship Specialty Start Date End Date Elsewhere, Pcp PCP - General Family Medicine 12/25/21 documented as of this encounter
--- OUTSIDE RECORDS SUMMARY | 2022-08-08 23:08 | XMS_ITS | Encounter Summary ---
:1965 Author Organization [facility] Address [address] [place] [address] Care Team Providers Name Role Phone Unavailable [...] you attend protestant or Patient refused 2021 restorationism services? Do [...] Pelvis with IV Contrast (09/02/2007 1:17 AM [facility]) Anatomical Region Laterality Modality Pelvis, Abdominal RST LOS N/A Computed Tomog chato Specimen (Source) Anatomical Collection Method Collection Time Re ceived Time Location / / Volume Laterality 09/02/2007 1:17 AM [facility] Addenda Addendum by Elmo Cabrera M.D. on 03/2007 11:40 PM [facility] APPENDED REPORT - 02-Sep-2007 01 :40:00 CT Abdomen w/ Contrast CT Pelvis W Contrast Appended to link all pertinent exams to report. ? Electronically signed by: ?? Mamta Cabrera M.D. 02-Sep-2007 01:40 Narrative 09/02/2007 1:40 AM [facility] Indications: ?R/O ABCESS, POSTOP ORIGINAL REPORT - [...] Abdomen with IV Contrast (09/02/2007 1:17 AM [facility]) Anatomical Region Laterality Modality Abdomen, Abdominal RST LOS N/A Computed Tacos graphy Specimen (Source) Anatomical Collection Method Collection Time Re ceived Time Location / / Volume Laterality 09/02/2007 1:17 AM [facility] Addenda Addendum by Elmo Cabrera M.D. on 03/2007 11:40 PM [facility] APPENDED REPORT - 02-Sep-2007 01 :40:00 CT Abdomen w/ Contrast CT Pelvis W Contrast Appended to link all pertinent exams to report. ? Electronically signed by: ?? Mamta Cabrera M.D. 02-Sep-2007 01:40 Narrative 09/02/2007 1:40 AM [facility] Indications: ?R/O ABCESS, POSTOP ORIGINAL REPORT - [...]
--- OUTSIDE RECORDS SUMMARY | 2022-08-08 23:08 | XMS_ITS | Encounter Summary ---
:1965 Author Organization [facility] Address [address] [place] [address] Care Team Providers Name Role Phone Unavailable [...] attend latter day or Patient refused 2021 jewish services? Do [...] Address City/State/ZIP Code Phon e Number [place] CONVERSION documented in this encounter Visit Diagnoses Not on filedocumented in this encounter
--- OUTSIDE RECORDS SUMMARY | 2022-08-08 23:08 | XMS_ITS | Encounter Summary ---
:1965 Author Organization [facility] Address [address] [place] [address] Care Team Providers Name Role Phone Unavailable [...] you attend taoist or Patient refused 2021 orthodox services? Do [...]
--- OUTSIDE RECORDS SUMMARY | 2022-08-08 23:08 | XMS_ITS | Encounter Summary ---
:1965 Author Organization [facility] Address [address] [place] [address] Care Team Providers Name Role Phone Unavailable [...] you attend zoroastrian or Patient refused 2021 amish services? Do [...] HEALTH CARE [facility]ENTER Indications: ?PNE PATHWAY CALL [phone] IF POS. ??TECHNOTE: NIPPLE PIERCINGS LUNG ARTIFACT. [...] from the original. Indications: PNE PATHWAY CALL [phone] IF P OS. TECHNOTE: NIPPLE PIERCINGS LUNG [...]
--- OUTSIDE RECORDS SUMMARY | 2022-08-08 23:08 | XMS_ITS | Encounter Summary ---
:1965 Author Organization [facility] Address [address] [place] [address] Care Team Providers Name Role Phone Unavailable Primary Care Provider Unavailable Encounter Details Date Type Department Care Team Description 06/21/2017 Hospital Encounter HX [facility] Hernesto Watson M.D. [address] [facility], [address] [place] [address] (Wo rk) Social History Tobacco Use Types [...] you attend baptism or Patient refused 2021 taoist services? Do [...] every 6 0 07/24/2009 03/29/2019 (six) hours. ondansetron ODT Take 1 tablet by 0 01/16/2010 (ZOFRAN-ODT) 8 mg mouth 3 (three) times disintegrating tablet a day as needed for nausea. documented as of this encounter Procedure Notes Sergio Watson M.D. - 06/21/2017 12:00 AM CDT 1EMG EMG OIL GAS AND PIPE TESTER Sergio Watson MD ([phone]) REFERRED BY Dr. Romero. REFERRED FOR Ms. [...] WATSON MD On: 06/21/2017 03:10 PM Source: [facility] MHSDOLBEYNONRADSYS Document Id: [id number] documented in this encounter Miscellaneous Notes Miscellaneous - Sergio Watson, M.D. - 06/21/2017 2:19 PM CDT Ambulatory Discharge Medication List [address] [id number] Visit Information Name: KAYLIN BENDER [facility] Number: [phone] Current Date: 06/21/2017 14:19:38 Attending [...] MD Signed On:21-JUN-2017 14:19:21 Additional Information: Source: [facility] POWERCHART Document Id: [id number] Reema - Sergio Watson M.D. - 06/21/2017 2:19 PM CDT Ambulatory Patient Summary [address] [id number] Visit Information Name: KAYLIN BENDER [facility] Number: [phone] Current Date: 06/21/2017 14:19:38 Physicians [...] if you dont have one. Go to [email or web address] and click on Create Your Account. Then, follow the directions to complete the online form. Youll be asked for your [facility] number which you can find at the top of this document. Your Goals/Additional instructions: Source: [facility] POWERCHART Document Id: [id number] Miscellaneous - Ayla Mcmanus, L.P.N. - 06/21/2017 1:25 PM CDT Adult Packaging Line Operator Intake/History Adult Packaging Line Operator Intake/History Entered On: 06/21/2017 13:26 CDT Performed On: 06/21/2017 13:25 CDT by MARIETTA, AYLA J SALES DEVELOPMENT CONSULTANT Intake Systolic Blood Pressure : 124 mmHg Diastolic Blood Pressure : 62 mmHg NIBP Mean : 83 mmHg BP Location : Left upper extremity Blood Pressure Cuff Size : Regular Actual Weight : 70.55 kg(Converted to: 155 lb 9 oz) Dosing Weight Clinic : 70.55 kg AYLA MCMANUS LPN - 06/21/2017 13:25 CDT General Info Information Given By : Patient Languages : Chinese Is Patient Female and 13-50 no hysterectomy [...] MCMANUS LPN - 06/21/2017 13:25 CDT Source: [facility] POWERCHART Document Id: [id number] CDT!24 documented in this encounter Plan of Treatment Not on filedocumented as of this encounter Visit Diagnoses Not on filedocumented in this encounter
--- OUTSIDE RECORDS SUMMARY | 2022-08-08 23:08 | XMS_ITS | Encounter Summary ---
:1965 Author Organization [facility] Address [address] [place] [address] Care Team Providers Name Role Phone Unavailable Primary Care Provider Unavailable Reason for Visit Reason Onset Date Comments [facility] Med Request 03/30/2019 Encounter Details Date Type Department Care Team Description 03/30/2019 Clinical [facility] Med Request Nicotine Kenna Bose M.S., Dependence, C.T.T.S. [facility] in [place], [place] [address] [place] [address] Social History Tobacco Use Types Packs/Day Years [...] you attend buddhist or Patient refused 2021 anglican services? Do [...] CDT Please send the following to the [facility] 1) 14 mg patch 2) [...]
--- OUTSIDE RECORDS SUMMARY | 2022-08-08 23:08 | XMS_ITS | Encounter Summary ---
:1965 Author Organization [facility] Address [address] [place] [address] Care Team Providers Name Role Phone Unavailable Primary Care Provider Unavailable Reason for Visit Outpatient (Routine) - Closed Specialty Diagnoses / Procedures Referred By Contact Refer red To Contact Otorhinolaryngology Diagnoses Sinus Nose Disorder [facility]itis [facility] [address] [place] [address] Referral ID Status Reason Start Date Expiration Date Visits Requ ested Visits Authorized [id number] Closed 01/10/2019 01/10/2020 1 1 Encounter Details Date Type Department Care Team Description 03/01/2019 Comprehensive Visit Department of Honorio, Sinusit is Chronic (Primary Dx); Otorhinolaryngology in [place] , [facility] 200 [facility] 200 [place] [address] [place] [phone] Social History Tobacco Use Types Packs/Day Years [...] you attend presybeterian or Patient refused 2021 worship services? 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 Decongestion: no improvement with decongestion. Modified [place]: not performed. Rigid exam with a 30 [...] obtained. - Obtained outside operative reports from [place] - Discussed risks and benefits including but [...]
--- OUTSIDE RECORDS SUMMARY | 2022-08-08 23:08 | XMS_ITS | Encounter Summary ---
:1965 Author Organization [facility] Address [address] [place] [address] Care Team Providers Name Role Phone Unavailable [...]
--- OUTSIDE RECORDS SUMMARY | 2022-08-08 23:08 | XMS_ITS | Encounter Summary ---
:1965 Author Organization [facility] Address [address] [place] [address] Care Team Providers Name Role Phone Unavailable [...] you attend lutheran or Patient refused 2021 gnosticism services? Do [...]
--- OUTSIDE RECORDS SUMMARY | 2022-08-08 23:08 | XMS_ITS | Encounter Summary ---
:1965 Author Organization [facility] Address [address] [place] [address] Care Team Providers Name Role Phone Unavailable [...] you attend caodaism or Patient refused 2021 taoism services? Do [...]
--- OUTSIDE RECORDS SUMMARY | 2022-08-08 23:08 | XMS_ITS | Encounter Summary ---
:1965 Author Organization [facility] Address [address] [place] [address] Care Team Providers Name Role Phone Unavailable Primary Care Provider Unavailable Encounter Details Date Type Department Care Team Description 09/25/2015 Hospital Encounter HX [facility] Hernesto Watson M.D. [address] [facility], [address] [place] [address] (Wo rk) Social History Tobacco [...] for nausea. documented as of this encounter Nursing Notes [...] KUNZ LPN On: 09/25/2015 03:38 PM Source: [facility] POWERCHART Document Id: [id number] documented in this encounter Miscellaneous Notes Telephone Encounter - Conversion, Historical Provider Ser - 05/11/2017 11:32 AM CDT *Phone Message/Dr. Watson Document Contains Addenda Addendum by IVY BENITEZ on May 11, 2017 13:27:22 CDT From: IVY BENITEZ ( [place] [employer]) To: Physical Medicine and Rehabilitation Staff; Sent: 05/11/2017 13:27:22 CDT Subject: RE: *Phone Message/Dr. Watson Left message on patients phone regarding this appointment. Addendum by NIKKIE GANDHI LPN on May 11, 2017 12:57:21 CDT From: NIKKIE GANDHI LPN ( Physical Medicine and Rehabilitation Staff) To: [place] [employer]; Sent: 05/11/2017 12:57:21 CDT Subject: RE: *Phone Message/Dr. Watson 27th noon, please reschedule. From: IVY BENITEZ ( [place] [employer]) To: Physical Medicine and Rehabilitation Staff; Sent: [...] come today, she would [facility] Romero wanted her to have it done. Please call her back at [phone] to advise. Advice/Action: Source used: ( ) [...] back cell phone number ( ) [facility]: [facility] Document Id: [id number] Miscellaneous - Nikkie Gandhi L.P.N. - 05/04/2017 4:19 PM CDT *General Message Document Contains Addenda Addendum by ISIDRO HI on May 04, 2017 16:42:57 CDT From: ISIDRO HI ( [place] [employer]) To: Physical Medicine and Rehabilitation Staff; Sent: 05/04/2017 16:42:57 CDT Subject: RE: *General Message Called patient and scheduled as requested. From: NIKKIE GANDHI LPN ( Physical Medicine and Rehabilitation Staff) To: [place] [employer]; Sent: 05/04/2017 16:19:56 CDT Subject: *General Message Please call patient to schedule for bilateral upper extremity EMG. 05/11/17 at 11:45 am. 1 hour Source: [employer] Document Id: [id number] Electronically signed by Avinash [facility] Fertilizer Supervisor [id number] at 06/01/2017 1:18 AM CDT documented in this encounter Plan of Treatment Not on filedocumented as of this encounter Visit Diagnoses Not on filedocumented in this encounter
--- OUTSIDE RECORDS SUMMARY | 2022-08-08 23:08 | XMS_ITS | Encounter Summary ---
:1965 Author Organization [facility] Address [address] [place] [address] Care Team Providers Name Role Phone Unavailable Primary Care Provider Unavailable Reason for Visit Reason Onset Date Comments Prior Medical Records/Sinus CT 03/02/2019 Encounter Details Date Type Department Care Team Description 03/02/2019 Clinical Department of [facility], Prior Medical Communication Otorhinolaryngology in [place] rds/Sinus [place], [place] [address] [facility] [address] [place] [phone] [place] [address] Social History Tobacco Use Types Packs/Day Years [...] you attend lutheran or Patient refused 2021 quaker services? Do [...] 8:13 AM CDT Per [place] (Dr. Olmedo), [facility] (Dr. Mckeon) ([phone]) was contacted. The previousmedical records have been received and sent for scanning into pt's chart. [facility] recent [facility] CD scan will be pushed. Coby documented in this encounter Plan of Treatment Not on filedocumented as of this encounter Visit Diagnoses Not on filedocumented in this encounter
--- OUTSIDE RECORDS SUMMARY | 2022-08-08 23:08 | XMS_ITS | Encounter Summary ---
:1965 Author Organization [facility] Address [address] [place] [address] Care Team Providers Name Role Phone Unavailable [...] you attend yazdanism or Patient refused 2021 anglican services? Do [...] and Lateral 2 Views (08/18/2008 9:44 PM [facility]) Anatomical Region Laterality Modality Chest, Thoracic RST LOS N/A Radiographic Xi ging Specimen (Source) Anatomical Collection Method Collection Time Re ceived Time Location / / Volume Laterality 08/18/2008 9:44 PM MST Narrative 08/18/2008 9:57 PM [facility] Indications: ?PNE PATHWAY CALL [phone] IF POS - pt unable to remove [...] from the original. Indications: PNE PATHWAY CALL [phone] IF P OS - pt unable to [...]
--- OUTSIDE RECORDS SUMMARY | 2022-08-08 23:08 | XMS_ITS | Encounter Summary ---
:1965 Author Organization [facility] Address [address] [place] [address] Care Team Providers Name Role Phone Unavailable [...] you attend tenriism or Patient refused 2021 congregation services? Do [...] encounter Results [place] Esophagram (08/24/2007 10:57 AM [facility]) Anatomical Region Laterality Modality Gastro Intestinal, Abdominal RST LOS N/A Rad iographic Imaging Specimen (Source) Anatomical Collection Method Collection Time Re ceived Time Location / / Volume Laterality 08/24/2007 10:57 AM MST Narrative 08/24/2007 11:41 AM [facility] Indications: ?STATUS POST GASTRIC BYPASS ORIGINAL [...]
--- OUTSIDE RECORDS SUMMARY | 2022-08-08 23:08 | XMS_ITS | Encounter Summary ---
:1965 Author Organization [facility] Address [address] [place] [address] Care Team Providers Name Role Phone Unavailable [...] you attend confucianist or Patient refused 2021 yazdanism services? Do [...] for nausea. documented as of this encounter Plan of Treatment Not on filedocumented as of this encounter Visit Diagnoses Not on filedocumented in this encounter
--- OUTSIDE RECORDS SUMMARY | 2022-08-08 23:08 | XMS_ITS | Encounter Summary ---
:1965 Author Organization [facility] Address [address] [place] [id number] Care Team Providers Name Role Phone Unavailable Primary Care Provider Unavailable Reason for Referral Outpatient (Routine) - Closed Specialty Diagnoses / Procedures Referred By Contact Refer red To Contact Neurology Diagnoses Stroke (HCC) Thrombosis Arterial (HCC) Aneurysm Cerebral Unruptured (HCC) Fernie Soriano M.D. [facility] [address] [place] [phone] Referral ID Status Reason Start Date Expiration Date Visits Requ ested Visits Authorized [id number] Closed 03/31/2019 03/30/2020 1 1 Reason for Visit Reason Comments Dizziness Evaluated in [place] scan. Headache Encounter Details Date Type Department Care Team Description 03/29/2019 - Hospital Encounter [facility] Alfredo Rausch M.D., M.A. [address] [place] [address] Stroke (HCC) (Primary Dx); [facility] [address] [place] [phone] Transient Ischemic Attack; [facility], Nan Rios M.D. [address] [place] [phone] Thrombosis Arterial (HCC); [facility], Nicotine Dependence Cigarettes; Second floor Aneurysm Cerebral Unruptured ([facility]) [address] [place] [address] Social History Tobacco Use Types [...] attend latter day or Patient refused 2021 taoism services? Do [...] patient, follows with Dr. Estephanie Franz in [place], [place]. Primary Care Provider Phone Number: None [...] and PCP follow-up with Dr. Franz in [place], [place], scheduled for 04/02/2019. - Please be [...] 04/10/2019 2:15 PM Darlin Olmedo M.D. [facility] Spec TEST RESULTS PENDING AT DISCHARGE [...] at the time. She presented to [facility], where MRI/MRA head showed multiple foci of [...] was discharged on a weekend, our clinical graduate assistant will arrange for PCP follow-up and [...] at the time. She presented to [facility], where MRI/MRA head showed multiple foci of [...] was discharged on a weekend, our clinical graduate assistant will arrange for PCP follow-up and INR checks on Tuesday. RECOMMENDATIONS: - Patient to continue enoxaparin 70 mg (1 mg/kg) BID bridge to warfarin with goal INR 2-3. Patient to receive INR checks and PCP follow-up with Dr. Franz in [place], [place] as soon as possible after discharge. [...] this after visit summary to your appointment(s). [place], [place] April 02, 2019 - Tuesday --12:30 PM - Hospital Follow-Up with Dr. Gold MD, Colleague of Juana Franz MD, primary care provider, at [facility] RECOMMENDATIONS: * April 02, 2019 at 9:30 AM [facility] INR Check * [facility] You may have outpatient appointments at [facility] that changed during your hospitalization. Refer to your [facility] Patient Visit Guide (PVG) for the most current schedule of appointments and detailed instructions of tests/procedures. Call [phone], if you did not receive an PVG or need to CANCEL any [facility] appointment(s). You were discharged from the Neurology [...] AM CDT Warfarin Dosing Progress Note Ms. Angei Mosquera is a [age] year old [...] are intact. There is no dysmetria on qwjixk-yw-vhuh and qzyl-wr-yfcg. There are no abnormal or extraneous movements. [...] next week (to be arranged by clinical graduate assistant, in-basket message sent). Will also require [...] --Will arrange for PCP appt (Dr. Franz, [place], [place]) for INR monitoring 04/02 or earliest [...] page the neurology stroke/cerebrovascular disease service pager ([phone]) with any questions orconcerns. Kylie Rubio RRebekah. [...] are intact. There is no dysmetria on xtzpjz-jp-aujv and gwud-zy-ofwg. There are no abnormal or extraneous movements. [...] Findings discussed at 2:03 p.m with pager [phone] Additional Diagnostic Studies Ecg 12 Lead Result [...] page the neurology stroke/cerebrovascular disease service pager [phone]) with any questions orconcerns. documented in this [...] the day of presentation and came to [facility], although head CT did not demonstrate any [...] ??? Aneurysm Ruptured Cerebral Nontraumatic (HCC) Trent eFrrer M.D. - 03/29/2019 2:02 PM CDT STROKE/CEREBROVASCULAR [...] developed a headache approximately 45 min later. [place] room was tilting, not spinning, and had [...] and mild now. She presented to [facility], where MRI/MRA head showed multiple foci of [...] are intact. There is no dysmetria on ldmrtw-qn-akrp and xkyq-jc-jqpi. There are no abnormal or extraneous movements. [...] Findings discussed at 2:03 p.m with pager [phone] Additional Diagnostic Studies ASSESSMENT / PLAN Ms. [...] Please page the stroke/cerebrovascular neurology service pager [phone]) for any questions or concerns. STROKE DOCUMENTATION: [...] Prior Function / Occupational Profile Level of [place]: Independent with ADLs and functional transfers, Independent [...] Score: 24 Basic Mobility Standardized Score: 61.14 [facility] 0-100% Score: 0 % Basic Mobility [facility] Modifier: CH INTERPRETATION: Clinicians answer the [...] 53 y.o. female who was seen at [facility] and is being evaluated for Tobacco Use [...] Prior Function / Occupational Profile Level of [place]: Independent with ADLs and functional transfers, Independent [...] be independent with home exercise resistive theraband ([place]) program for left shoulder and elbow (MET) OT Goal #3 Date: 03/30/19 @FLOW12([id number])@ Plan Patient agrees with the plan of [...] living independently in her own apartment in [place] until yesterday morning when she noted the [...] Ms. Mosquera was initially taken to the [facility] where MRI/MRA (images which I reviewed in QREADS) revealed bila teral small areas of restricted diffusion in posterior distribution involving both the cerebellar and occipital lobes. The etiology was presumed embolic and she was transferred to [place] for further evaluation here. Upon arrival at [place], Ms. Mosquera was described as alert, in [...] has lived alone in an apartment in [place] for,I believe, 5 years. She is unemployed, [...] tone: Upper and lower extremities 0/0. Coordination: Jzpikk-vn-elpb was 0/0. Satellite sign was symmetric. Cranial nerves II through XII: Extraocular movements were intact. Visual jhaveri were intact. Vwvt-ue-dwmupzhe decreased hearing acuity bilaterally. Smile symmetric. Tongue [...] diagnostic data. 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 female who presents to the [place] for evaluation of vertigo and [...] an Emergency Neurology consult note. Please page [phone] with any additional questions. I personally spent [...] call light appropriate. Electronically signed by: Marlene Iriwn R.N. 03/30/19 10:47 PM Makenzie Childs R.N. [...] CHIEF COMPLAINT/REASON FOR VISIT Dizziness (Evaluated in [place] with CT scan. ) and Headache HISTORY OF PRESENT ILLNESS 53-year-old female who presents from outside facility to [facility] ED with a chief concern of headache [...] She was transported from outside hospital to [facility] for further evaluation management by Neurology here. [...] do basic arithmetic No visual agnosia No ddfj-hh-pxhwi agnosia Uigdmn-wm-hhbk normal Gjdy-lu-ezna normal Skin: Skin is warm, dry, intact [...] the emergency department by ambulance from [facility] for evaluation of headache and difficulty with balance. Patient states that she woke up this morning and felt like her body was drunk. She subsequently developed a headache. She was seen at the outside hospital and underwent neuro imaging, laboratory evaluation, EKG testing. She now presents for neurological[facility]uation at [facility]. She is currently complaining of fatigue only. Neuro imaging at [place]: MRI head MRA demonstrates multiple foci of [...] at the time. She presented to [facility], where MRI/MRA head showed multiple foci of [...] was discharged on a weekend, our clinical graduate assistant will arrange for PCP follow-up and INR checks on Tuesday. documented in this encounter Plan of Treatment Scheduled Referrals Name Type Priority Associated Order Schedule Diagnoses Neurology - Outpatient Routine Stroke ([facility]) Expected: Cerebrovascular consult Referral Thrombosis 02/2019 (clinic) Arterial ([facility]) (Approximate), Aneurysm Cerebral Expires: Unruptured ([facility]) 03/31/2022 documented as of this encounter [...] - Routine 03/30/2019 5:32 Results for HOSPITAL SR. UNIX SYSTEM ADMINISTRATOR - PM CDT this proc edure MONITORED [...] N/A Computed Tomography ARZ LOS, Neuroradiology FLA [facility] Specimen (Source) Anatomical Collection Method Collection Time [...] the ventral aspect (series 6 image s [id number]). The lumen remains significantly irregular and there [...] well seen. The RADHA, MCA, a nd DISTRIBUTION SYSTEM OPERATOR branches are unremarkable in appearance. Stable [...] the ventral aspect (series 6 image s [id number]). The lumen remains significantly irregular and there [...] well seen. The RADHA, MCA, a nd DISTRIBUTION SYSTEM OPERATOR branches are unremarkable in appearance. Stable [...] Prothrombin Time (PT/INR) (03/31/2019 8:12 AM CDT) [facility] Method Time Signature Prothrombin 11.5 9.4 - 12.5 03/31/2019 [facility] Time, P sec 8:46 AM CDT LABORATORIES [facility] INR 1.0 0.9 - 1.1 03/31/2019 [facility] 8:46 AM CDT [facility]ATOR[facility] Comment: ----ADDITIONAL INFORMATION---- Standard intensity [...] City/State/ZIP Code Phon e Number [facility] LABORATORIES - [address] [place], [place] [address] [facility] CBC without Differential (03/31/2019 8:12 AM CDT) [facility] gist Method Time Signature Hemoglobin 12.9 11.6 - 03/31/2019 [facility] 15.0 g/dL 8:37 AM CDT LAB[facility]ATORIES [facility] Hematocrit 39.6 35.5 - 03/31/2019 [facility] 44.9 % 8:37 AM CDT [facility] Erythrocytes 4.06 3.92 - 03/31/2019 [facility] 5.13 8:37 AM CDT LABORATORIES - x10(12)/L [facility] MCV 97.5 78.2 - 03/31/2019 [facility] 97.9 fL 8:37 AM CDT [facility] RBC Distrib Width 13.2 12.2 - 03/31/2019 [facility] 16.1 % 8:37 AM CDT [facility] Platelet Count 256 157 - 371 03/31/2019 [facility] x10(9)/L 8:37 AM CDT LABORATORIES - [facility] Leukocytes 5.3 3.4 - 9.6 03/31/2019 [facility] x10(9)/L 8:37 AM CDT [facility] Specimen Anatomical Collection Method Collection Time Receive d Time (Source) Location / / Volume Laterality Blood (Blood, 03/31/2019 8:12 AM 03/31/20 19 8:31 Venous) CDT AM CDT Trent Ferrer M.D. LAB BLOOD ADD-ON Performing Organization Address City/State/ZIP Code Phon e Number [facility] LABORATORIES - [address] [place], [place] [address] [facility] HOLTER MONITOR - HOSPITAL SR. UNIX SYSTEM ADMINISTRATOR - MONITORED IN HOSPITAL OR ED DISCHARGE (03/30/2019 5:32 PM CDT) [facility] gist Method Time Signature Recording Date [id number] HOLTER SENTINEL Analysis Date 20,190,510 HOLTER SENTINEL Max Heart Rate 125 bpm HOLTER SENTINEL Max Heart Rate [id number] HOLTER Time SENTINEL Min Heart Rate 46 bpm HOLTER SENTINEL Min Heart Rate [id number] HOLTER Time SENTINEL Mean Heart 71 bpm [...] count HOLTER Hour SENTINEL VE Max Per [id number] HOLTER Hour Time SENTINEL AF Count 0 count HOLTER SENTINEL SVT Runs 0 count HOLTER SENTINEL SVE Total 106 count HOLTER Beats SENTINEL SVE Percent 0 percent HOLTER Beats SENTINEL SVE Max Per 18 count HOLTER Hour SENTINEL SVE Max Per [id number] HOLTER Hour Time SENTINEL Specimen (Source) Anatomical [...] superior vena cava. Patent foramen ovale. ??No iydi-wt-slklm shunt at atrial level. ??Agitated saline injection(s) performed. ??Small mjldd-qi-grou shunt a t atrial level at rest and with Valsalva release. Pericardial effusion. ??PROCEDURE ??Max sesophageal echocardiogram performed at the request of the primary customer servicer. ??Adult probe inserted without difficulty. ??Procedure performed [...] Sedation Narrator or other pertinent record in [facility] for additional procedure and sedation [...] superior vena cava. Patent foramen ovale. No crnt-tm-kxdxb s ballesteros at atrial level. Agitated saline injection(s) performed. Small caicl-si-atwd shunt at atrial level at rest and with Valsalva release. Pericardial effusion. PROCEDURE Transeso phageal echocardiogram performed at the request of the primary customer servicer. Adult pr obe inserted without difficulty. Procedure [...] Sedation Narrator or other pertinent record in [facility] for additional procedure and sedation in formation. Transesophageal echocardiogram completed without complications. For the complete report, see the Order-L evel Documents below. See PDF For Result Trent Ferrer M.D. CV ECHO PROCEDURES Prothrombin Time (PT/INR) (03/30/2019 11:42 AM CDT) [facility] Method Time Signature Prothrombin 11.3 9.4 - 12.5 03/30/2019 [facility] Time, P sec 12:05 PM CDT [facility] INR 1.0 0.9 - 1.1 03/30/2019 [facility] 12:05 PM CDT [facility] Comment: ----ADDITIONAL INFORMATION---- Standard intensity [...] City/State/ZIP Code Phon e Number [facility] LABORATORIES - [address] [facility] [place], [place] [address] [facility] ECG 12 Lead (03/30/2019 9:30 AM CDT) P athologist Signature Ventricular Rate 53 BPM MUSE ECG/Min [place] Interval 150 ms MUSE QRSD Interval 84 ms MUSE QT Interval 452 ms MUSE QTC Interval 424 ms MUSE P [place] 7 degrees MUSE R [place] -11 degrees MUSE T Wave [place] 1 degrees MUSE Specimen Anatomical Collection Method [...] Potassium, S 4.1 3.6 - 5.2 03/30/2019 [facility] mmol/L 7:41 AM CDT LABORATORIES - [facility] Sodium, S 141 135 - 145 03/30/2019 [facility] mmol/L 7:41 AM CDT LABORATORIES - [facility] Chloride, S 106 98 - 107 03/30/2019 [facility] mmol/L 7:41 AM CDT LABORATORIES - [facility] Bicarbonate, S 24 22 - 29 03/30/2019 [facility] mmol/L 7:41 AM CDT LABORATORIES - [facility] Anion Gap 11 7 - 15 03/30/2019 [facility] 7:41 AM CDT LABORATORIES - [facility] BUN (Blood Urea 14 6 - 21 03/30/2019 [facility] Nitrogen), S mg/dL 7:41 AM CDT LABORATORIES - [facility] Creatinine 0.73 0.59 - 03/30/2019 [facility] 1.04 mg/dL 7:41 AM CDT [facility]IES [facility] eGFR-Non >90 >=60 03/30/2019 [facility] Black/ mL/min/BSA 7:41 AM CDT LABORATORIES [facility] Comment: ----ADDITIONAL INFORMATION---- Estimated GFR calculated using the 2009 CKD_EPI creatinine equation. eGFR-Black/ >90 >=60 mL/min/BSA 03/30/2019 7:41 [facility] CDT [facility]ATORIES [facility] Comment: ----ADDITIONAL INFORMATION---- Estimated GFR calculated using the 2009 CKD_EPI creatinine equation. Calcium, Total, S 8.9 8.6 - 10.0 mg/dL 03/30/2019 7:41 AM [facility] CDT [facility] S Glucose, S 100 70 - 140 mg/dL 03/30/2019 7:41 AM [facility] CDT LABORATORIES [facility] S Specimen Anatomical Collection Method Collection Time Receive d Time (Source) Location / / Volume Laterality Blood (Blood, 03/30/2019 6:21 AM 03/30/20 19 6:52 Venous) CDT AM CDT Trent Ferrer M.D. LAB BLOOD ADD-ON Performing Organization Address City/State/ZIP Code Phon e Number [facility] LABORATORIES - [address] (ABNORMAL) CBC without Differential (03/30/2019 6:21 AM CDT) [facility] Method Time Signature Hemoglobin 12.5 11.6 - 03/30/2019 [facility] 15.0 g/dL 6:54 AM CDT LAB[facility]ATORIES [facility] Hematocrit 37.9 35.5 - 03/30/2019 [facility] 44.9 % 6:54 AM CDT LAB[facility] Erythrocytes 3.87 (L) 3.92 - 03/30/2019 [facility] 5.13 6:54 AM CDT LABORATORIES - x10(12)/L [facility] MCV 97.9 78.2 - 03/30/2019 [facility] 97.9 fL 6:54 AM CDT LAB[facility]ATORIES [facility] RBC Distrib 13.5 12.2 - 03/30/2019 [facility] Width 16.1 % 6:54 AM CDT LABORATORIES - [facility] Platelet Count 245 157 - 371 03/30/2019 [facility] x10(9)/L 6:54 AM CDT [facility] - [facility] Leukocytes 4.1 3.4 - 9.6 03/30/2019 [facility] x10(9)/L 6:54 AM CDT LABORATORIES - [facility] Specimen Anatomical Collection Method Collection Time Receive d Time (Source) Location / / Volume Laterality Blood (Blood, 03/30/2019 6:21 AM 03/30/20 19 6:44 Venous) CDT AM CDT Trent Ferrer M.D. LAB BLOOD ADD-ON Performing Organization Address City/[facility] Phon e Number [facility] LABORATORIES - [address] [place] [address] [facility] Coagulation Factor II Activity Assay (03/30/2019 6:20 AM CDT) athologist Signature Coag Factor II 93 75 - 145 % 03/30/2019 [facility] Assay, P 11:53 AM CDT [facility] Comment: ----ADDITIONAL INFORMATION---- This test has been modified from the surfside treyacturer's instructions. Its performance characteri stics were determined by [facility] in a manner co nsistent with CLIA requirements. This test has not bee n cleared or approved by the U.S. Food and Drug Admin istration. Specimen Anatomical Collection Method Collection Time Receive d Time (Source) Location / / Volume Laterality Blood 03/30/2019 6:20 AM 9 CDT 11:12 AM CDT Trent Ferrer M.D. LAB BLOOD ADD-ON Performing Organization Address City/[facility] Phon e Number [facility] LABORATORIES - [address] [place] [address] [facility] Protein S Antigen, Total (03/30/2019 6:20 AM CDT) athologist Signature Protein S Ag, 91 80 - 160 % 03/30/2019 [facility] Total, P 11:04 AM CDT [facility] Comment: ----ADDITIONAL INFORMATION---- This test has been modified from the surfside ufacturer's instructions. Its performance characteri stics were determined by [facility] in a manner co nsistent with CLIA [...] Address City/[facility]/ZIP [facility] Phon e Number [facility] LABORATORIES - [address] [place], [place] [address] [facility] Reptilase Time, Plasma (03/30/2019 6:20 AM CDT) athologist Signature Reptilase 17 14 - 23 03/30/2019 [facility] Time, P sec 9:49 AM CDT [facility] Comment: ----ADDITIONAL INFORMATION---- This test has been modified from the kyle cordovar's instructions. Its performance characteri stics were determined by [facility] in a manner co nsistent with CLIA requirements. This test has not bee n cleared or approved by the U.S. Food and Drug Admin istration. Specimen Anatomical Collection Method Collection Time Receive d Time (Source) Location / / Volume Laterality Blood 03/30/2019 6:20 AM 9 7:17 CDT AM CDT Trent Ferrer M.D. LAB BLOOD ADD-ON Performing Organization Address City/[facility] Phon e Number [facility] LABORATORIES - [address] [place], [place] [address] [facility] (ABNORMAL) APTT Mix 1:1 (03/30/2019 6:20 AM CDT) P athologist Signature APTT Mix 1:1 42 (H) 26 - 36 03/30/2019 [facility] sec 9:49 AM CDT [facility] Comment: ----ADDITIONAL INFORMATION---- This test has been modified from the kyle yangacturer's instructions. Its performance characteri stics were determined by [facility] in a manner co nsistent with CLIA requirements. This test has not bee n cleared or approved by the U.S. Food and Drug Admin istration. Specimen Anatomical Collection Method Collection Time Receive d Time (Source) Location / / Volume Laterality Blood 03/30/2019 6:20 AM 9 7:17 CDT AM CDT Trent Ferrer M.D. LAB BLOOD ADD-ON Performing Organization Address [facility] Phon e Number [facility] LABORATORIES - [address] [place] [address] [facility] Heparin Anti-Xa Assay (03/30/2019 6:20 AM CDT) athologist Signature Heparin 0.38 IU/mL 03/30/2019 [facility] Anti-Xa, P 7:12 AM CDT LABORATORIES [facility] Comment: UFH therapeutic range: ?? [...] [place]/ZIP Code Phon e Number [facility]IES - [address] [place] [address] [facility] Beta-2 Glycoprotein 1 Antibodies, IgG and IgM (03/30/2019 6:20 AM CDT) athologist Signature Beta 2 GP1 Ab <9.4 <15.0 03/30/2019 [facility] IgG, S (Negative) 7:[address] U/mL [facility] Beta 2 GP1 Ab <9.4 <15.0 03/30/2019 [facility] IgM, S (Negative) 7:[address] U/mL [facility] Specimen Anatomical Collection Method Collection Time Receive d Time (Source) Location / / Volume Laterality Blood (Blood, 03/30/2019 6:20 AM 03/30/20 19 9:55 Venous) CDT AM CDT Trent Ferrer M.D. LAB BLOOD ADD-ON Performing Organization Address City/State/ZIP Code Phon e Number [facility] [address] [place] [address] [facility] Phospholipid (Cardiolipin) Antibodies, IgG and IgM (03/30/2019 6:20 AM CDT) P athologist Signature Phospholipid Ab <9.4 <15.0 03/30/2019 [facility] IgM, S (Negative) 3:49 PM CDT [place] [facility] Phospholipid Ab <9.4 <15.0 03/30/2019 [facility] IgG, S (Negative) 3:49 PM CDT [place] [facility] Specimen Anatomical Collection Method Collection Time Receive d Time (Source) Location / / Volume Laterality Blood (Blood, 03/30/2019 6:20 AM 03/30/20 19 9:55 Venous) CDT AM CDT Trent Ferrer M.D. LAB BLOOD ADD-ON Performing Organization Address City/[facility] [place]/ZIP Code Phon e Number [facility] [address] [place], [place] [address] [facility] (ABNORMAL) Thrombophilia Profile (03/30/2019 6:20 AM CDT) Patholo gist Method Time Signature Prothrombin Time 10.9 10.3 - 03/30/2019 [facility] (PT), P 12.8 sec 9:35 AM CDT LABORATORIES - [facility] INR 1.0 03/30/2019 [facility] 9:35 AM CDT LABORATORIES - [facility] Activated 57 (H) 26 - 36 03/30/2019 [facility] Partial sec 9:46 AM CDT LABORATORIES - Thrombopl Time, [facility] DRVVT Screen 0.7 0.0 - 1.1 03/30/2019 [facility] Ratio ratio 9:35 AM CDT LABORATORIES - [facility] Thrombin Time 73 (H) 15 - 23 03/30/2019 [facility] (Bovine), P sec 9:46 AM CDT LABORATORIES - [facility] Comment: ----ADDITIONAL INFORMATION---- This test has been modified from the man ufacturer's instructions. Its performance characteri stics were determined by [facility] in a manner co nsistent with CLIA requirements. This test has not bee n cleared or approved by the U.S. Food and Drug Admin istration. Fibrinogen, P 276 200 - 430 mg/dL 03/30/2019 10:04 AM CDT [facility] Comment: ----ADDITIONAL INFORMATION---- This test has been modified from the surfside Remicalmacturer's instructions. Its performance characteri stics were determined by [facility] in a manner co nsistent with CLIA requirements. This test has not bee n cleared or approved by the U.S. Food and Drug Admin istration. Fibrinogen 0.26 0.00 - 0.50 03/30/2019 12:44 PM [facility] Equivalent Units mcg/mL U T [facility] (FE) [facility] D-Dimer Units (DDU) 130 0 - 250 ng/mL 03/30/2019 12:44 PM [facility] D-Dimer [facility] Soluble Fibrin <8 0.0 - 7.9 mcg/mL 03/30/2019 1:19 PM [facility] Monomer T [facility] Comment: ----ADDITIONAL INFORMATION---- This test was developed and its performa nce characteristics determined by [facility] in a manner co nsistent with CLIA requirements. This test has not bee n cleared or approved by the U.S. Food and Drug Admin istration. Antithrombin Activity, 99 80 - 130 % 03/30/2019 10:05 AM [facility] P T [facility] Comment: ----ADDITIONAL INFORMATION---- This test has been modified from the surfside Remicalmacturer's instructions. Its performance characteri stics were determined by [facility] in a manner co nsistent with CLIA requirements. This test has not bee n cleared or approved by the U.S. Food and Drug Admin istration. Protein C Activity, P 131 70 - 150 % 03/30/2019 9:33 A M T [facility] Comment: ----ADDITIONAL INFORMATION---- This test has been modified from the surfside Remicalmacturer's instructions. Its performance characteri stics were determined by [facility] in a manner co nsistent with CLIA requirements. This test has not bee n cleared or approved by the U.S. Food and Drug Admin istration. Protein S Ag, Free, 59 (L) 65 - 160 % 03/30/2019 10:19 AM [facility] P CDT LABORATORIES - [facility] Chloe Comment: ----ADDITIONAL INFORMATION---- This test has been modified from the surfside Coupzurer's instructions. Its performance characteri stics were determined by [facility] in a manner co nsistent with CLIA requirements. This test has not bee n cleared or approved by the U.S. Food and Drug Admin istration. APCRV Ratio 3.0 >or=2.3 03/30/2019 10:11 [facility] AM CDT LABORATORIES [facility] Prothrombin [id number] Negative Negative 04/02/2019 5:19 [facility] Mutation, B PM CDT LABORATORIES [facility] PTNT Reviewed By Lewis Moreno, 04/02/2019 5:19 [facility] MBBS CDT LABORATORIES [facility] PTNT Interpretation This individual DOES NOT hav e the Prothrombin [id number] mutation. Although the 04/02/2019 5:19 [facility] Prothrombin [id number] mutation is absent, the chloe kang may have other genetic CDT LABORATORIES - and environmental risk factors for thrombosis. Alanna rosa genetic consultation [facility] and counseling of potentially affected family members [facility] testing. Comment: ----ADDITIONAL INFORMATION---- This test is a direct mutation analysis using PCR amplification, signal generation and release by cleavage of se quence specific alleles ([employer], [employer], [place], [place]). This test has been modified from the surfside Remicalmacturer's instructions. Its performance characteristics were determi jayesh by [facility] in a manner consistent with CLIA requirements. This test has not been cleared or approved by the U.S. Food and Drug Administration . Reviewed by: iMlad Emerson M.D. 04/03/2019 1:35 PM [facility] CDT LABORATORIES [facility] Interpretation ?Type of Study: ?? Thrombophilia Profile 04/03/2019 1:35 PM [facility] ?IMPRESSION: ??1) Decreased protein S free antigen, a cquired versus CDT LABORATORIES - congenital. ??See comments and suggest clinical correlation. [facility] ?2) Data are consistent with the presence [...] patient does n ot have the prothrombin [id number] mutation. ?Separately performed and reported testing for beta-2 glycoprotein I and anticardiolipin antibodies (IgG and IgM isotypes) demonstrat ed normal results, providing no evidence of antiphospholipid antibodie s by these methodologies. Specimen Anatomical Collection Method Collection Time Receive d Time (Source) Location / / Volume Laterality Blood (Blood, 03/30/2019 6:20 AM 03/30/20 19 8:13 Venous) CDT AM CDT Narrative [facility] - 04/03/2019 1:37 PM CDT Specimen Information: Specimen ID: [id number] Specimen Type: Blood Specimen Collection Start Date: 9 ??6:20 AM Specimen Received Date: 03/30/2019 ??8:13 AM Specimen ID: [id number] Specimen Type: Blood Specimen Collection Start Date: ??6:20 AM Specimen Received Date: 03/30/2019 ??7:17 AM Specimen ID: [id number] Specimen Type: Blood Specimen Collection Start Date: ??6:20 AM Specimen Received Date: 03/30/2019 ??7:17 AM Specimen ID: [id number] Specimen Type: Blood Specimen Collection Start Date: ??6:20 AM Specimen Received Date: 03/30/2019 ??7:17 AM Specimen ID: [id number] Specimen Type: Blood Specimen Collection Start Date: ??6:20 AM Specimen Received Date: 03/30/2019 ??7:17 AM Specimen ID: [id number] Specimen Type: Blood Specimen Collection Start Date: ??6:20 AM Specimen Received Date: 03/30/2019 ??7:17 AM Trent Ferrer M.D. LAB BLOOD NON ADD-ON Performing Organization Address City/State/ZIP Code Phon e Number [address] [address] [facility] Heparin Anti-Xa Assay (03/29/2019 11:28 PM CDT) P athologist Signature Heparin 0.31 IU/mL 03/30/2019 [facility] Anti-Xa, P 12:05 AM CDT LABORATORIES [facility] Comment: UFH therapeutic range: ?? [...] Organization Address City/[facility] [place]/[facility] Phon e Number [facility] LABORATORIES - [address] [address] [facility] Hemoglobin A1c (03/29/2019 6:05 PM CDT) Analysis Performed At Path logist Time Signature Hemoglobin A1c, 5.6 4.0 - 5.6 03/29/2019 [facility] B % 6:50 PM CDT [facility] Specimen Anatomical Collection Method Collection Time Receive d Time (Source) Location / / Volume Laterality Blood (Blood, 03/29/2019 6:05 PM 03/29/20 19 6:28 Venous) CDT PM CDT Trent Ferrer M.D. LAB BLOOD ADD-ON Performing Organization Address City/[facility] [place]/[facility] Phon e Number [facility] LABORATORIES - [address] [address] [facility] (ABNORMAL) Lipid Panel (03/29/2019 6:05 PM CDT) [facility] Method Time Signature Cholesterol, 204 (H) mg/dL 03/29/2019 [facility] Total 7:09 PM CDT [facility] Comment: ----REFERENCE VALUE---- Desirable: < 200 Borderline high: 200 - 239 High: > or = 240 Triglycerides 104 mg/dL 03/29/2019 7:09 PM CDT [facility] Comment: ----REFERENCE VALUE---- Normal: <150 Borderline high: 150-199 High: 200-499 Very high: > or =500 Cholesterol, HDL, S 91 >=50 mg/dL 03/29/2019 7:09 PM CDT [facility] Calculated LDL 92 mg/dL 03/29/2019 7:09 PM CDT [facility] Comment: ----REFERENCE VALUE---- Desirable: <100 Above Desirable: 100-129 Borderline high: 130-159 High: 160-189 Very high: > or =190 Cholesterol, Non-HDL, 113 mg/dL 03/29/2019 7:0 9 PM CDT [facility] LABORATORIES Calculated - [facility] Comment: ----REFERENCE VALUE---- Desirable: <130 [...] [facility] Code Phon e Number [facility] - [address] S-TSH (Thyroid-Stimulating Hormone - Sensitive) (03/29/2019 6:05 PM CDT) athologist Signature TSH, Sensitive 1.6 0.3 - 4.2 03/29/2019 [facility] mIU/L 7:09 PM CDT [facility] Specimen Anatomical Collection Method Collection Time Receive d Time (Source) Location / / Volume Laterality Blood (Blood, 03/29/2019 6:05 PM 03/29/20 19 6:28 Venous) CDT PM CDT Trent Ferrer M.D. LAB BLOOD ADD-ON Performing Organization Address City/[facility] [place]/ZIP Code Phon e Number [facility] LABORATORIES - [address] APTT (Activated Partial Thromboplastin Time) (03/29/2019 4:46 PM CDT) athologist Signature Activated 29 25 - 37 03/29/2019 [facility] Partial sec 5:01 PM CDT LABORATORIES [facility] Specimen Anatomical Collection Method Collection Time Receive d Time (Source) Location / / Volume Laterality Blood (Blood, 03/29/2019 4:46 PM 03/29/20 19 4:52 Venous) CDT PM CDT Trent Ferrer M.D. LAB BLOOD ADD-ON Performing Organization Address City/[facility] [place]/ZIP Code Phon e Number [facility] LABORATORIES - [address] Head Neck Angiogram with IV [...] gs discussed at 2:03 p.m with pager [phone] Narrative 03/29/2019 4:34 PM CDT EXAM: CT [...] gs discussed at 2:03 p.m with pager [phone] Eliseo Mejias M.D. IMG CT PROCEDURES CT [...] gs discussed at 2:03 p.m with pager [phone] Narrative 03/29/2019 4:34 PM CDT EXAM: CT [...] gs discussed at 2:03 p.m with pager [phone] Eliseo Mejias M.D. IMGeronimo CT PROCEDURES (ABNORMAL) CBC with Differential, Blood (03/29/2019 2:04 PM CDT) [facility] Method Time Signature Hemoglobin 12.4 11.6 - 03/29/2019 [facility] 15.0 g/dL 2:11 PM CDT LABORATORIES - [facility] Hematocrit 37.0 35.5 - 03/29/2019 [facility] 44.9 % 2:11 PM CDT LABORATORIES - [facility] Erythrocytes 3.79 (L) 3.92 - 03/29/2019 [facility] 5.13 2:11 PM CDT LABORATORIES - x10(12)/L [facility] MCV 97.6 78.2 - 03/29/2019 [facility] 97.9 fL 2:11 PM CDT LABORATORIES - [facility] RBC Distrib 13.3 12.2 - 03/29/2019 [facility] Width 16.1 % 2:11 PM CDT LABORATORIES - [facility] Platelet Count 238 157 - 371 03/29/2019 [facility] x10(9)/L 2:11 PM CDT LABORATORIES - [facility] Leukocytes 4.7 3.4 - 9.6 03/29/2019 [facility] x10(9)/L 2:11 PM CDT LABORATORIES - [facility] Neutrophils 2.33 1.56 - 03/29/2019 [facility] 6.45 2:11 PM CDT LABORATORIES - x10(9)/L [facility] Lymphocytes 1.74 0.95 - 03/29/2019 [facility] 3.07 2:11 PM CDT LABORATORIES - x10(9)/L [facility] Monocytes 0.32 0.26 - 03/29/2019 [facility] 0.81 2:11 PM CDT LABORATORIES - x10(9)/L [facility] Eosinophils 0.22 0.03 - 03/29/2019 [facility] 0.48 2:11 PM CDT LABORATORIES - x10(9)/L [facility] Basophils 0.04 0.01 - 03/29/2019 [facility] 0.08 2:11 PM CDT LABORATORIES - x10(9)/L [facility] Specimen Anatomical Collection Method Collection Time Receive d Time (Source) Location / / Volume Laterality Blood (Blood, 03/29/2019 2:04 PM 03/29/20 19 2:08 Venous) CDT PM CDT Eliseo Mejias M.D. LAB BLOOD ADD-ON Performing Organization Address City/State/ZIP Code [facility] e Number [facility] LABORATORIES - [address] [place], [place] [address] [facility] Basic Metabolic Panel (03/29/2019 2:04 PM CDT) Analysis Performed At Patho logist Time Signature Potassium, P 4.0 3.6 - 5.2 03/29/2019 [facility] mmol/L 2:24 PM CDT [facility] Sodium, P 142 135 - 145 03/29/2019 [facility] mmol/L 2:24 PM CDT LABORATORIES [facility] Chloride, P 107 98 - 107 03/29/2019 [facility] mmol/L 2:24 PM CDT LABORATORIES [facility] Bicarbonate, P 24 22 - 29 03/29/2019 [facility] mmol/L 2:24 PM CDT LABORATORIES [facility] Anion Gap, P 11 7 - 15 03/29/2019 [facility] 2:24 PM CDT [facility] BUN (Blood Urea 17 6 - 21 03/29/2019 [facility] Nitrogen), P mg/dL 2:24 PM T [facility] Creatinine 0.81 0.59 - 03/29/2019 [facility] 1.04 mg/dL 2:24 PM T [facility] eGFR-Black/Afri >90 >=60 03/29/2019 [facility] can [place] Leonean mL/min/BSA 2:24 PM T [facility] Comment: ----ADDITIONAL INFORMATION---- Estimated GFR calculated using the 2009 CKD_EPI creatinine equation. eGFR Non-Black/ 82 >=60 mL/min/BSA 03/29/2019 2:24 PM [facility] [place]an T [facility] Comment: ----ADDITIONAL INFORMATION---- Estimated GFR calculated using the 2009 CKD_EPI creatinine equation. Calcium, Total, P 8.7 8.6 - 10.0 mg/dL 03/29/2019 2:24 PM [facility] CDT [facility] Glucose, P 101 70 - 140 mg/dL 03/29/2019 2:24 PM [facility] Specimen Anatomical Collection Method Collection Time Receive d Time (Source) Location / / Volume Laterality Blood (Blood, 03/29/2019 2:04 PM 03/29/20 2:08 Venous) CDT PM CDT Eliseo Mejias M.D. LAB BLOOD ADD-ON Performing Organization Address City/State/ZIP Code Phon e Number [facility] LABORATORIES - [address] [place], [place] [address] [facility] documented in this encounter Visit Diagnoses Diagnosis [...] (LMX) 1 application, topical, 4 times daily [place] N, mild pain or score 1-3 of [...] R .N.)1315 (Given - Provider: Julieth Whitt R.N.)8265 (Given - Provider: Marlene D Salwey, R.N.) [...]
--- OUTSIDE RECORDS SUMMARY | 2022-08-08 23:08 | XMS_ITS | Encounter Summary ---
:[address] [facility] Address [address] [place] [address] Care Team Providers Name Role Phone Unavailable [...] you attend anglican or Patient refused 2021 amish services? Do [...]
--- OUTSIDE RECORDS SUMMARY | 2022-08-08 23:08 | XMS_ITS | Encounter Summary ---
:1965 Author Organization [facility] Address [address] [place] [address] Care Team Providers Name Role Phone Unavailable Primary Care Provider Unavailable Encounter Details Date Type Department Care Team Description 01/15/2010 - Hospital Encounter HX ARZ NO MAPPING Leonides Du, 01/16/2010 Lilian [address] [place] [address] Social History Tobacco Use Types [...] you attend gnosticist or Patient refused 2021 mandaen services? Do [...] encounter Results [place] Esophagram (01/15/2010 9:36 PM [facility]) Anatomical Region Laterality Modality Gastro Intestinal, Abdominal RST LOS N/A Rad iographic Imaging Specimen (Source) Anatomical Collection Method Collection Time Re ceived Time Location / / Volume Laterality 01/15/2010 9:36 PM [facility] Narrative 01/15/2010 9:43 PM [facility] Indications: ?STATUS POST GASTRIC BYPASS ORIGINAL REPORT [...] Cabrera M.D. 15-Jan-2010 21:43 Procedure Note Elmo aCbrera M.D. - 07/24/2018Formatt ing of this note [...]
--- OUTSIDE RECORDS SUMMARY | 2022-08-08 23:08 | XMS_ITS | Encounter Summary ---
:1965 Author Organization [facility] Address [address] [place] [address] Care Team Providers Name Role Phone Unavailable [...] you attend presybeterian or Patient refused 2021 advent services? Do [...]
--- OUTSIDE RECORDS SUMMARY | 2022-08-08 23:08 | XMS_ITS | Encounter Summary ---
:1965 Author Organization [facility] Address [address] [place] [address] Care Team Providers Name Role Phone Unavailable [...] you attend rastafarian or Patient refused 2021 pentecostalism services? Do [...] 2:55 PM MST Indications: ?CP PATHWAY CALL [phone] IF POS ORIGINAL REPORT - 24-Jul-2009 14:55:00 [...] from the original. Indications: CP PATHWAY CALL [phone] IF PO S ORIGINAL REPORT - 24-Jul-2009 [...]
--- OUTSIDE RECORDS SUMMARY | 2022-08-08 23:09 | XMS_ITS | Continuity of Care Document ---
:1965 Author Organization [facility] Address [address] [place] [address] Care Team Providers Name Role Phone [facility] Unavailable Unavailable Procedures Procedure Date IMPLANT [...] Visit Copied on Encounter [facility] No [facility] Provider: Surgery Surgery Surgery [facility]. David, [address], [place], [place], [place] [id number], [place], [place], , [place] [id number], [address]. [place]. tel: [phone] Twin Twin No Twin Referring [address] Provider: Surgery Surgery Surgery [facility]. David, [address], [place], [place], [place] [id number], [place], [place], , [place] [id number], [address]. [place]. tel: [phone] Twin [place] No Twin [address] Provider: Surgery Surgery Surgery [facility]. Jose [address] [facility] [address], [facility], [place], [place] , [place], [id number], [place], [address]. [place] [id number], tel: [phone] tel:[phone] Family History Family Member Type Diagnosis Age At Onset No Information Payers Payer name Insurance type Covered alliance party ID Authorization(s ) Medicare [id number] [employer] [facility] [id number] Social History Type Description Quantity Date Captured [...]
--- OUTSIDE RECORDS SUMMARY | 2022-08-08 23:09 | XMS_ITS | Continuity of Care Document ---
:1965 Author Organization [facility] Address [address] [address] [place] [address] Phone Care Team Providers Name Role Phone Nilay Perry MD Unavailable Unavailable Advance Directives Directive Yes / No Effective Date File Name No Information Encounters Encounter Practice Location Reason(s) Diagnoses Date Provider Provide rs Description For Visit Copied on Encounter [facility] No Orlando FAULKNER Referring [facility] Nilay. Provider: [facility] [place], Endoscopy [address] [facility] [address], Fredis DILLON MD, [address] [facility] [address], [place], [place], [facility] [address], [id number], [place], [place], [facility] [id number], [place], [address]. tel:[phone] . tel:[phone] tel:[phone] Family History Family Member Type Diagnosis Age At Onset No Information Payers Payer name Insurance type Covered constitution party ID Authorization(s ) [place] [employer] [id number] Social History Type Description Quantity Date Captured [...]
--- OUTSIDE RECORDS SUMMARY | 2022-08-08 23:09 | XMS_ITS | Continuity of Care Document ---
:1965 Author Organization [facility] Address [address] [place] [address] Phone Care Team Providers Name Role Phone [...] rs Description For Visit Copied on Encounter [facility] No [place] Referring [facility] Information -2007 Su. Provider : Arthur [address]ab, [address], [address] [facility], [place], [place], [place], [id number], [place], [id number], . [address]. tel:[phone] tel:[phone] tel:[phone] [facility] Blurred No Adalberto Referring [facility] Vision Information -2007 Deep. Provider: Arthur, (chief [address]) [address] [facility], [address], [address], [place], [place], [place], [place], [place], [place], [id number], [place], [id number], . [address]. tel:[phone] tel:[phone] tel:[phone] Family History Family Member Type Diagnosis Age [...]
--- OUTSIDE RECORDS SUMMARY | 2022-08-08 23:09 | XMS_ITS | Continuity of Care Document ---
:1965 Author Organization [facility] Address [address] [place] [address] Phone Care Team Providers Name Role Phone [...] rs Description For Visit Copied on Encounter [facility] No Information Nov- ZProvider Arthritis [place] [address] [place] 4 . . Rheumatolo gy, [address] [facility], [place], [place], [id number], [place] tel:[phone] [facility] TOBACCO USE Apr-1 Michele Arthritis DISORDEROBESITY 8[address]ara. And NOSOSTEOPOROSIS NOS [address], gy, [address], [address], [place], [id number], [place], [place]. [id number], tel:[phone] tel:[phone] [facility] Age-related Apr-0 ZProvider Arthritis [place] osteoporosis w/o 7[address] [place] current 4 . . Rheumatolo pathological gy, [address] [place] [address], [id number], [place] tel:[phone] [facility] OBESITY NOSTOBACCO Mar-2 ZProvider Arthritis USE [address] And DISORDEROSTEOPOROSI 4 . . Rheumatolo S NOSMALAISE AND gy, [address], [place], [place], [id number], [place] tel:[phone] [place] NEPTALI [place] Tobacco useObesity, Mar-2 Michele Arthritis unspecifiedAge-rela Nara. And mary osteoporosis 4 [address]/o [address], gy, [address], [address] fracture [place], [address], [place], [place], [id number], [place], [place]. [id number], tel:[phone] tel:[phone] Family History Family Member Type Diagnosis Age [...]
--- OUTSIDE RECORDS SUMMARY | 2022-08-08 23:09 | XMS_ITS | Continuity of Care Document ---
:1965 Author Organization [facility] Address [address] [place] [id number] Care Team Providers Name Role Phone Mor Singleton CRNA Unavailable Unavailable Procedures Procedure Date ANESTH, HEAD/NECK/PTRUNK ANESTH PERC IMG TX SP PROC ANESTH PERC IMG TX SP PROC Advance Directives Directive Yes / No Effective Date File Name No Information Encounters Encounter Practice Location Reason(s) Diagnoses Date Provider Provide rs Description For Visit Copied on Encounter [facility] No Areli Referring [facility]. Provider: Lois CISNEROS Surgery [address] [place] [address], [facility] [address] [place] [id number], [facility], [place], [place], [place], [place], [id number], [id number] [place]. . tel:[phone] tel:[phone] [facility] No [facility] Referring Anesthesia [facility] -2019 [place]. Provider: Lois CISNEROS Surgery [address] [facility], [facility] [place], [place], [address] [id number], [id number], [facility]. [facility] tel:[phone] s, [place], [phone] . tel:[phone] [facility] No [facility] Referring Anesthesia [facility] -2019 [place]. Provider: PA, [address] [facility] [address], [place], Endy J, [place], [place], [place], [address] [facility] [id number], [id number], John, [facility]. Denisa tel:[phone] s, [place], [id number] . tel:[phone] Family History Family Member Type Diagnosis Age At Onset No Information Payers Payer name Insurance type Covered democrat ID Authorization(s ) Medicare MB [id number] [employer] [facility] [id number] Social History Type Description Quantity Date Captured [...]
--- OUTSIDE RECORDS SUMMARY | 2022-08-08 23:10 | XMS_ITS | Continuity of Care Document ---
:1965 Author Organization [facility] Address [address] [place] [address] Phone Care Team Providers Name Role Phone [...] elctr each OFFICE/OUTPATIENT VISIT, EST SCS [employer] [place] [employer] OFFICE/OUTPATIENT VISIT, EST OFFICE/OUTPATIENT VISIT, EST [...] For Visit Copied on Encounter OFFICE VISIT, [facility] Back Pain Anxiety disorder, Ka ngas [facility] (chief unspecifiedChronic 0-202 [place]. TELEMEDICINE Pain Caterina complaint) migraine without 2 [address] [facility], aura, intractable, John, [address] without status [place], migrainosusOsteoar is, [place], Caterina, thritisPain in [id number] [place], left shoulderPain , [place]. [id number] in left hipPain in tel:+ , [place] right hipPain in [id number] tel:+ left kneePain in [id number] right kneeOther spondylosis, cervical regionOther spondylosis, lumbar regionRadiculopath y, lumbar regionPain in thoracic spineFibromyalgiaP ostlaminectomy syndrome, not elsewhere classifiedLong term (current) use of opiate analgesic OFFICE VISIT, [facility] Back Pain OsteoarthritisChro K [facility] (chief saul migraine [place]. Provide r: TELEMEDICINE Pain [place] complaint) without aura, [facility], intractable, John, Will J, [address] without status [place] [address] John, migrainosusAnxiety is, [place], John, Caterina, disorder, [id number] [place], unspecifiedPain in , [place]. s, [place] , [id number] left shoulderPain tel: [phone] , [place] in left hipPain in 53782799 . tel: right hipPain in tel:2 [phone] left kneePain in 995650 5 right kneeOther spondylosis, cervical regionOther spondylosis, lumbar regionRadiculopath y, lumbar regionPain in thoracic spinePostlaminecto my syndrome, not elsewhere classifiedFibromya lgiaLong term (current) use of opiate analgesic OFFICE VISIT, [facility] Back Pain Pain in left [facility] (chief shoulderAnxiety [place]. TELEMEDICINE Pain Caterina complaint) disorder, 2 [address] [facility], unspecifiedChronic John, [address] migraine without [place], aura, intractable, is, [place], Caterina, without status [id number] [place], migrainosusOsteoar , [place]. [id number] thritisPain in tel: , US right hipPain in [id number] tel: left hipPain in 87036181 left kneePain in right kneeOther spondylosis, cervical regionOther spondylosis, lumbar regionRadiculopath y, lumbar regionPain in thoracic spinePostlaminecto my syndrome, not elsewhere classifiedFibromya lgiaLong term (current) use of opiate analgesic OFFICE VISIT, [facility] Back Pain Pain in left [facility] (chief hipAnxiety [place]. TELEMEDICINE Pain [place] complaint) disorder, 2 [address] [facility], unspecifiedChronic John, [address] migraine without [place] John, aura, intractable, is, [place], Caterina, without status [id number] [place], migrainosusOsteoar , US. [id number] thritisPain in tel: , US left shoulderPain [id number] tel: in right hipPain 94048874 in left kneePain in right kneeOther spondylosis, cervical regionOther spondylosis, lumbar regionRadiculopath y, lumbar regionPain in thoracic spineFibromyalgiaP ostlaminectomy syndrome, not elsewhere classifiedLong term (current) use of opiate analgesic [facility] No Information [facility] [place]. Pain [place] 2 [address] [facility], John, [address] [place], is, [place], Caterina, [id number] [place], , [place]. [id number] tel: , [place] [id number] tel: [phone] OFFICE/OUTPAT [facility] Back Pain Anxiety disorder, Ka [facility] Referring IENT VISIT, [facility] (chief unspecifiedChronic [place] . Provider: EST Pain [place] complaint) migraine without 2 [address] [facility], aura, intractable, John, Will J, [address] without status [place] [address] John, migrainosusOsteoar is, [place], John, Caterina, thritisPain in [id number] [place], left shoulderPain , [place]. s, MN, 541183060 in left hipPain in tel: [phone] , US right hipPain in 11590908 . tel: left kneePain in tel:2 [phone] right kneeOther [id number] spondylosis, cervical regionOther spondylosis, lumbar regionRadiculopath y, lumbar regionPain in thoracic spineFibromyalgiaP ostlaminectomy syndrome, not elsewhere classifiedLong term (current) use of opiate analgesic OFFICE VISIT, [facility] Back Pain Chronic migraine Jan- Jens gas [facility] (chief without aura, [place]. TELEMEDICINE Pain [place] complaint) intractable, 2 [address] [facility], without status John, [address] migrainosusAnxiety [place], disorder, is, [place], [place], unspecifiedOsteoar [id number] [place], thritisPain in , US. [id number] left shoulderPain tel: , [place] in right hipPain [id number] tel: in left hipPain in 18591157 right kneePain in left kneeOther spondylosis, cervical regionOther spondylosis, lumbar regionRadiculopath y, lumbar regionPain in thoracic spineFibromyalgiaP ostlaminectomy syndrome, not elsewhere classifiedLong term (current) use of opiate analgesic [facility] Information [facility] [place]. Provider: Pain Caterina 2 [address] [facility], John Will J, [address] [place] [address] John, is, [place], John, [place], [id number] [place], , [place]. s, [place], [id number] tel: [phone] , [place] [id number] . tel: tel: [phone] OFFICE VISIT, [facility] Back Pain Radiculopathy, [facility] (chief lumbar [place]. TELEMEDICINE Pain Caterina complaint) regionPostlaminect 2 [address] [facility], marquis syndrome, not John, [address] elsewhere [place] John, classifiedPain in is, [place], [place], left hipAnxiety [id number] [place], disorder, , US. [id number] unspecifiedPain in tel: , US thoracic [id number] tel: spineOsteoarthriti [phone] sChronic migraine without aura, intractable, without status migrainosusPain in right hipPain in left shoulderPain in right kneePain in left kneeFibromyalgiaOt her spondylosis, lumbar regionOther spondylosis, cervical regionLong term (current) use of opiate analgesicEncounter for therapeutic drug level monitoring OFFICE VISIT, [facility] Back Pain Radiculopathy, [facility] (chief lumbar [place]. Provider: TELEMEDICINE Pain [place] complaint) regionPostlaminect 2 [address] [facility], marquis syndrome, not John, Will J , [address] elsewhere [place] [address] John classifiedPain in is, [place], John, Caterina, left hipAnxiety [id number] Augusta fischer [place], disorder, , [place]. s, [place], 518884778 unspecifiedPain in tel: [phone] , [place] thoracic [id number] . tel: spineOsteoarthriti tel : [phone] sChronic migraine 45800 45 without aura, intractable, without status migrainosusPain in right hipPain in left shoulderPain in right kneePain in left kneeFibromyalgiaOt her spondylosis, lumbar regionOther spondylosis, cervical regionLong term (current) use of opiate analgesic OFFICE VISIT, [facility] Back Pain Radiculopathy, [facility] Referring [facility] (chief lumbar [place]. Provider: TELEMEDICINE Pain Caterina complaint) regionPostlaminect 2 [address] [facility], marquis syndrome, not Endy Lopez J , [address] elsewhere [place] [address] John classifiedPain in is, [place], John, [place], left hipAnxiety [id number] Augusta fischer [place], disorder, , [place]. s, MN, 998668104 unspecifiedPain in tel: [phone] , [place] thoracic [id number] . tel: spineOsteoarthriti tel : [phone] sChronic migraine 50538 45 without aura, intractable, without status migrainosusPain in right hipPain in left shoulderPain in right kneePain in left kneeFibromyalgiaOt her spondylosis, lumbar regionLong term (current) use of opiate analgesicOther spondylosis, cervical region OFFICE VISIT, [facility] Back Pain Radiculopathy, [facility] (chief lumbar [place]. TELEMEDICINE Pain [place] complaint) regionPostlaminect 1 [address] [facility], marquis syndrome, not John, [address] elsewhere [place] John classifiedPain in is, [place], Caterina, left hipAnxiety [id number] MN, disorder, , US. [id number] unspecifiedPain in tel: , [place] thoracic [id number] tel: spineOsteoarthriti [phone] sChronic migraine without aura, intractable, without status migrainosusPain in right hipPain in left shoulderPain in right kneePain in left kneeFibromyalgiaOt her spondylosis, lumbar regionLong term (current) use of opiate analgesicOther spondylosis, cervical region OFFICE/OUTPAT [facility] Back Pain Other spondylosis, shlomo Referring IENT VISIT, [facility] (chief cervical [place]. Provide r: EST Pain [place] complaint) regionRadiculopath 1 [address] [facility], y, lumbar John, Will J, [address] regionPostlaminect [place] [address] John, marquis syndrome, not is, [place], John, [place], elsewhere [id number] [place], classifiedPain in , [place]. s, MN, 031779344 left hipAnxiety tel: [phone] , [place] disorder, 72863356 . tel: unspecifiedPain in tel :2 [phone] thoracic 5975797 spineOsteoarthriti sChronic migraine without aura, intractable, without status migrainosusPain in right hipPain in left shoulderPain in right kneePain in left kneeFibromyalgiaOt her spondylosis, lumbar regionLong term (current) use of opiate analgesic OFFICE VISIT, [facility] Back Pain Other spondylosis, anglucrecia EST [facility] (chief cervical [place]. TELEMEDICINE Pain Caterina complaint) regionRadiculopath 1 [address] [facility], y, lumbar John, [address] regionPostlaminect [place] John, marquis syndrome, not is, [place], [place], elsewhere [id number] MN, classifiedPain in , US. 523269259 left hipAnxiety tel: , [place] disorder, 24139019 tel: unspecifiedPain in 93135354 thoracic spineOsteoarthriti sChronic migraine without aura, intractable, without status migrainosusPain in right hipPain in left shoulderPain in right kneePain in left kneeFibromyalgiaOt her spondylosis, lumbar regionLong term (current) use of opiate analgesic OFFICE VISIT, [facility] Back Pain Other spondylosis, Sep- K shlomo Referring [facility] (chief cervical [place]. Provider: TELEMEDICINE Pain C[place] complaint) regionRadiculopath 1 [address] [facility], y, lumbar John, Will J, [address] regionPostlaminect [place] [address] John, marquis syndrome, not is, [place], John, [place], elsewhere [id number] [place], classifiedPain in , [place]. s, MN, 252774682 left hipAnxiety tel: [phone] , [place] disorder, 08055353 . tel: unspecifiedPain in tel : [phone] thoracic 2367050 spineOsteoarthriti sChronic migraine without aura, intractable, without status migrainosusPain in right hipPain in left shoulderPain in right kneePain in left kneeFibromyalgiaOt her spondylosis, lumbar regionLong term (current) use of opiate analgesic [facility] Encounter for Mario Referr ing [facility] therapeutic drug [place]. Pro vider: Pain [place] level 1 [address] [facility], monitoringLong John, Will J, [address] term (current) use [place] [address] John, of opiate is, [place], John, [place], analgesic [id number] [place], , [place]. s, [place], 209006532 tel: [phone] , [place] 67595262 . tel: tel: [phone] OFFICE/OUTPAT [facility] Back Pain Other spondylosis, Aug-0 K shlomo Referring IENT VISIT, [facility] (chief lumbar [place]. Provider : EST Pain Cater[place] complaint) regionFibromyalgia 1 [address] [facility], Pain in left John, Will J, [address] kneePain in right [place] [address] John, kneePain in left is, [place], John, [place], shoulderPain in [id number] [place], right hipChronic , [place]. s, MN, 052249637 migraine without tel:+ [phone] , [place] aura, intractable, 29186212 . tel: without status tel:+ [phone] migrainosusOsteoar 8412 345 thritisPain in thoracic spineAnxiety disorder, unspecifiedPain in left hipPostlaminectomy syndrome, not elsewhere classifiedRadiculo shane, lumbar regionOther spondylosis, cervical regionLong term (current) use of opiate analgesicEncounter for therapeutic drug level monitoring OFFICE VISIT, [facility] Back Pain Other spondylosis, [facility] Referring [facility] (chief lumbar [facility]. Provider: TELEMEDICINE Pain Cater[place] complaint) regionFibromyalgia 1 [address] [facility], Pain in left John, Will J, [address] kneePain in right [place] [address] John, kneePain in left is, [place], John, [place], shoulderPain in [id number] Augusta fischer [place], right hipChronic , [place]. s, MN, 196184676 migraine without tel:+ [phone] , [place] aura, intractable, 58840891 . tel: without status tel: [phone] migrainosusOsteoar 8412 345 thritisPain in thoracic spineAnxiety disorder, unspecifiedPain in left hipPostlaminectomy syndrome, not elsewhere classifiedRadiculo shane, lumbar regionOther spondylosis, cervical regionLong term (current) use of opiate analgesic OFFICE VISIT, [facility] Back Pain Other spondylosis, Kanu0 K [facility] Referring [facility] (chief lumbar [facility]. Provider: TELEMEDICINE Pain [place] complaint) regionFibromyalgia 1 [facility] [facility], Pain in left John, Will J, [address] kneePain in right [place] [address] John, kneePain in left is, [place], John, Caterina, shoulderPain in 507214554 [place], right hipChronic , [place]. s, [place], 641762672 migraine without tel:+ [phone] , [place] aura, intractable, 15725267 . tel: without status tel: [phone] migrainosusOsteoar 8412 345 thritisPain in thoracic spineAnxiety disorder, unspecifiedPain in left hipPostlaminectomy syndrome, not elsewhere classifiedRadiculo shane, lumbar regionOther spondylosis, cervical regionLong term (current) use of opiate analgesic OFFICE VISIT, [facility] Back Pain Other spondylosis, [facility] Referring [facility] (chief lumbar 5-202 [place]. Provider: TELEMEDICINE Pain [place] complaint) regionFibromyalgia 1 [address] [facility], Pain in left John, Will J, [address] kneePain in right [place] [address] John, kneePain in left is, [place], John, Caterina, shoulderPain in [id number] [place], right hipChronic , [place]. s, MN, 301842808 migraine without tel: [phone] , [place] aura, intractable, 80120781 . tel: without status tel: [phone] migrainosusOsteoar 8412 345 thritisPain in thoracic spineAnxiety disorder, unspecifiedPain in left hipPostlaminectomy syndrome, not elsewhere classifiedRadiculo shane, lumbar regionOther spondylosis, cervical regionLong term (current) use of opiate analgesic [facility] Back Pain Other spondylosis, March- Mario Referring [facility] (chief lumbar 4-202 [place]. Provider: Pain [place]ater[place] complaint) regionFibromyalgia 1 [address] [facility], Pain in left John, Will J, [address] kneePain in right [place] [address] John, kneeChronic is, [place], John, Caterina, migraine without [id number] [place], aura, intractable, , [place]. s, [place] , 246114759 without status tel: [phone] , [place] migrainosusPain in 72195961 . tel: right hipPain in tel: [phone] left shoulderPain 47597 45 in right shoulderOsteoarthr itisPain in thoracic spineAnxiety disorder, unspecifiedPain in left hipPostlaminectomy syndrome, not elsewhere classifiedRadiculo shane, lumbar regionOther spondylosis, cervical regionLong term (current) use of opiate analgesic OFFICE VISIT, [facility] Back Pain Other spondylosis, Mar-2 K angas Referring [facility] (chief lumbar [place]. Provider: TELEMEDICINE Pain Caterina complaint) regionFibromyalgia 1 [address] [facility], Pain in left John, Will J, [address] kneePain in right [place] [address] John, kneeChronic is, [place], John, [place], migraine without 019031102 [place], aura, intractable, , [place]. s, [place] , 175692161 without status tel: [phone] , [place] migrainosusPain in 82423459 . tel: right hipPain in tel:2 [phone] left shoulderPain 54835 45 in right shoulderOsteoarthr itisPain in thoracic spineAnxiety disorder, unspecifiedPain in left hipPostlaminectomy syndrome, not elsewhere classifiedRadiculo shane, lumbar regionOther spondylosis, cervical regionLong term (current) use of opiate analgesic OFFICE VISIT, [facility] Back Pain Pain in left Fe- Mario Referring [facility] (chief hipPostlaminectomy [place]. P rovider: TELEMEDICINE Pain [place] complaint) syndrome, not 1 [address] [facility], elsewhere John, Endy J, [address] classifiedRadiculo [place] [address] John, shane, lumbar is, [place], John, Caterina, regionOther [id number] [place], spondylosis, , [place]. s, [place], 745256441 cervical tel: [phone] , [place] regionOther 07687660 . tel: spondylosis, tel: 2 [phone] lumbar 4313651 regionFibromyalgia Pain in left kneePain in right kneeChronic migraine without aura, intractable, without status migrainosusPain in right hipPain in left shoulderPain in right shoulderOsteoarthr itisPain in thoracic spineAnxiety disorder, unspecifiedLong term (current) use of opiate analgesic OFFICE VISIT, [facility] Back Pain Pain in left Mario Referring [facility] (chief hipPostlaminectomy [place]. P rovider: TELEMEDICINE Pain [place] complaint) syndrome, not 1 [address] [facility], elsewhere Endy Lopez J, [address] classifiedRadiculo [place] [address] John, shane, lumbar is, [place], John, Caterina, regionOther [id number] [place], spondylosis, , [place]. s, MN, 106513706 cervical tel:+ [phone] , [place] regionOther 95755182 . tel: spondylosis, tel: 2 [phone] lumbar 5796046 regionFibromyalgia Pain in left kneePain in right kneeChronic migraine without aura, intractable, without status migrainosusPain in right hipPain in left shoulderPain in right shoulderOsteoarthr itisPain in thoracic spineAnxiety disorder, unspecifiedLong term (current) use of opiate analgesic OFFICE VISIT, [facility] Pain in left Mario Referring [facility] (chief hipPostlaminectomy [place]. P rovider: TELEMEDICINE Pain [place] complaint) syndrome, not 0 [address] [facility], elsewhere Endy Lopez J, [address] classifiedRadiculo [facility] [address] John, shane, lumbar is, [place], John, [place], regionOther [id number] [place], spondylosis, , [place]. s, [place], 283087755 cervical tel: [phone] , [place] regionOther 93305836 . tel: spondylosis, tel: 2 [phone] lumbar 5845430 regionFibromyalgia Pain in left kneePain in right kneeChronic migraine without aura, intractable, without status migrainosusPain in right hipPain in left shoulderPain in right shoulderOsteoarthr itisPain in thoracic spineAnxiety disorder, unspecifiedLong term (current) use of opiate analgesic OFFICE VISIT, [facility] Back Pain Postlaminectomy [facility] Referring [facility] (chief syndrome, not [place]. Provid er: TELEMEDICINE Pain Caterina complaint) elsewhere 0 [address] [facility], classifiedRadiculo John Will J, [address] shane, lumbar [place] [address] [facility] John, regionOther is, [place], John, [place], spondylosis, [id number] [place], cervical , [place]. s, [place], 409758451 regionOther tel:+ [phone] , [place] spondylosis, 54208146 . tel: lumbar tel:+ [phone] regionFibromyalgia 8412 345 Pain in left kneePain in right kneeChronic migraine without aura, intractable, without status migrainosusPain in left hipPain in right hipPain in left shoulderPain in right shoulderOsteoarthr itisPain in thoracic spineAnxiety disorder, unspecifiedLong term (current) use of opiate analgesic OFFICE/OUTPAT [facility] Back Pain Postlaminectomy Oct- Gonzalez as Referring IENT VISIT, [facility] (chief syndrome, not [place]. Pr ovider: EST Pain Cater[place] complaint) elsewhere 0 [address] [facility], classifiedRadiculo Endy Lopez J, [address] shane, lumbar [place] [address] [facility] John, regionOther is, [place], John, Caterina, spondylosis, [id number] [place], cervical , [place]. s, MN, 526887226 regionOther tel:+ [phone] , [place] spondylosis, 75488847 . tel: lumbar tel: [phone] regionFibromyalgia 8412 345 Pain in left kneePain in right kneeChronic migraine without aura, intractable, without status migrainosusPain in left hipPain in right hipPain in left shoulderPain in right shoulderOsteoarthr itisPain in thoracic spineAnxiety disorder, unspecifiedLong term (current) use of opiate analgesicEncounter for therapeutic drug level monitoring OFFICE VISIT, [facility] Back Pain Postlaminectomy Sep-2 Gonzalez as Referring EST [facility] (chief syndrome, not [place]. Provid er: TELEMEDICINE Pain Caterina complaint) elsewhere 0 [address] [facility], classifiedRadiculo John, Will J, [address] shane, lumbar [place] [address] John, regionOther is, [place], John, Caterina, spondylosis, [id number] [place], cervical , [place]. s, [place], 206877249 regionOther tel: [phone] , [place] spondylosis, [id number] . tel: lumbar regionLong tel: [phone] term (current) use 8412 345 of opiate analgesicAnxiety disorder, unspecifiedFibromy algiaPain in left kneePain in right kneeChronic migraine without aura, intractable, without status migrainosusPain in left hipPain in right hipPain in left shoulderPain in right shoulderOsteoarthr itisPain in thoracic spine OFFICE VISIT, [facility] Back Pain Postlaminectomy Yeimy en Referring [facility] (chief syndrome, not Venu. Provid er: TELEMEDICINE Pain [place] complaint) elsewhere 0 [address] [facility] [address] Jermaine l J, [address] shane, lumbar 11 Umair [address] John, regionOther 100, John, [place], spondylosis, [place], cervical e, MN, s, MN, 152864721 regionOther [id number] [phone] , [place] spondylosis, , [place]. . tel: lumbar regionLong tel: te l:+ [phone] term (current) use [id number] of opiate analgesicAnxiety disorder, unspecified [facility] Postlaminectomy RN RN. Refe [facility] syndrome, not [address] Prov ider: Pain Caterina elsewhere 0 [facility], classified [place] Will J, [address] is, [place], [address] John, [id number] John, [place], , [place]. [place], tel: s, [place], [phone] , [place] . tel: tel: [phone] [facility] Postlaminectomy David Ref [facility] Surgery syndrome, not 4-202 Gi. Provider: Pain Center elsewhere 0 7235 [facility], classified JohnEndy J, [address] [place] [address] John, is, [place], Chandana Lopeza, [id number] [place], , [place]. s, [place], 022421749 tel: [phone] , [place] [id number] . tel: tel:+[phone] OFFICE VISIT, [facility] Postlaminectomy Kanga s Referring [facility] (chief syndrome, not [place]. Provider: TELEMEDICINE Pain complaint) elsewhere 0 7235 [facility], classifiedRadiculo JohnEndy J, [address] shane, lumbar [place] [address] John, regionOther is, [place], [place], [place], spondylosis, [id number] [place], cervical , [place]. [place], [place], 016066811 regionOther tel: [phone] , [place] spondylosis, 99021123 . tel: lumbar regionLong tel: [phone] term (current) use [id number] 345 of opiate analgesicAnxiety disorder, unspecified [facility] Postlaminectomy Mario Refe [facility] syndrome, not [place]. Provid er: Pain Caterina elsewhere 0 7235 [facility], classified JohnEndy J, [address] [place] [address] John, is, [place], [place], [id number] [place], , [place]. [place], [place], [address] tel: [phone] , [place] [id number] . tel: tel:[phone] [facility] Postlaminectomy Kokayeff Ref [facility] Surgery syndrome, not Gi. Provider: Pain Center elsewhere 0 7235 [facility], classified Endy Lopez J, [address] [place] [address] John, is, [place], John, Caterina, [id number] [place], , [place]. [place], [place], 555401107 tel: [phone] , [place] [id number] . tel: tel:[phone] OFFICE VISIT, [facility] Back Pain Postlaminectomy Michale s Referring [facility] (chief syndrome, not [place]. Provider: TELEMEDICINE Pain complaint) elsewhere 0 7235 [facility], classifiedRadiculo Endy Lopez J, [address] shane, lumbar [place] 7235 [facility] John, regionLong term is, [place], [place], [place], (current) use of [id number] [place], opiate , [place]. [place], [place], 442379899 analgesicOther tel: [phone] , [place] spondylosis, 61335103 . tel: cervical tel: [phone] regionOther [id number] spondylosis, lumbar region [facility] No Information [facility] [place]. Pain Caterina 0 7235 [facility], John, 7235 [facility] [place], is, [place], [place], [id number] [place], , [place]. [address]018817 tel: , [place] [id number] tel: [phone] OFFICE VISIT, [facility] Back Pain CervicalgiaPostlam K shlomo Referring [facility] (chief inectomy syndrome, [place]. P rovider: TELEMEDICINE Pain [place] complaint) not elsewhere 0 7235 [facility], classifiedRadiculo Endy Lopez J, [address] shane, lumbar [place] 7235 [facility] John, regionLong term is, [place], John, [place], (current) use of [id number] [place], opiate analgesic , [place]. [place], [place], 496928229 tel: [phone] , [place] [id number] . tel: tel:[phone] Psych Dx Eval [place] [facility] Pain disorder with Juliana e [facility] related Maikel Provider: Pain psychological [address] [facility], factorsBipolar Ohva Will J, [address] disorder John, 7235 [facility] John, [place], Caterina, is, [place], [place], [id number] s, [place], [id number] , [place]. [address] , [place] tel: . tel: [phone] tel: [phone] OFFICE VISIT, [facility] Back Pain Postlaminectomy Apr-2 Michael s Referring [facility] (chief syndrome, not [place]. Provider: TELEMEDICINE Pain complaint) elsewhere 0 7235 [facility], classifiedLong John Endy Jorge, [address] term (current) use [place] 7 [address] John, of opiate is, [place], John, [place], analgesicRadiculop [id number] [place], athy, lumbar , [place]. s, MN, 194765961 regionCervicalgia tel: [phone] , [place] [id number] . tel: tel: [phone] [facility] No Information Jan- [facility], [facility] Peter. Pain [place] 0 7235 [facility], John, [address] [place] John, is, [place], [place], [id number] [place], , [place]. 3974049[address] tel: , [place] [id number] tel: [phone] OFFICE/OUTPAT [facility] Back Pain Postlaminectomy Jan- Gonzalez as Referring IENT VISIT, [facility] (chief syndrome, not [place]. Pr ovider: EST Pain Caterina complaint) elsewhere 0 7235 [facility], classifiedLong Endy Lopez, [address] term (current) use [place] 7 [address] John, of opiate is, [place], John, [place], analgesicCervicalg [id number] [place], iaRadiculopathy, , [place]. [place], [place], 431998989 lumbar region tel: [phone] , [place] [id number] . tel: tel:[phone] [facility] Postlaminectomy Mar- Garcia Refe rring [facility] Surgery syndrome, not Viry. Provider: Pain Center elsewhere 0 7235 [facility], classified John, Will J, [address] [place] [address] John, is, [place], Caterina Lopez, [id number] [place], , [place]. [place], MN, 005134455 tel:+ [phone] , [place] [id number] . tel: tel:[phone] OFFICE/OUTPAT [facility] Back Pain Postlaminectomy Gonzalez as Referring IENT VISIT, [facility] (chief syndrome, not 8 [place]. Pr ovider: EST Pain Caterina complaint) elsewhere 0 7235 [facility], classifiedCervical John, Will J, [address] giaRadiculopathy, [place] 72 35 [address] John, lumbar regionLong is, [place], Caterina Lopez, term (current) use [id number] [place], of opiate , [place]. [place], MN, 055234191 analgesicCarrier tel: [phone] , [place] of Methicillin 80547322 . tel: susceptible tel:2 [phone] Staphylococcus [id number] aureusCarrier of Methicillin resistant Staph aureusMethicillin resis staph infct causing diseases classd elsMelissacounter for therapeutic drug level monitoring [facility] Postlaminectomy [facility] syndrome, not Rosetta. Pain Caterina elsewhere 0 7235 [facility], classified John, [address] [place] John, is, [place], Caterina, [id number] [place], , [place]. 071901059 tel:+ , [place] [id number] tel: [phone] OFFICE/OUTPAT [facility] Back Pain Radiculopathy, Kanga s Referring IENT VISIT, [facility] (chief lumbar [place]. Provider : EST Pain [place] complaint) regionPostlaminect 0 7235 [facility], marquis syndrome, not John, Will J , [address] elsewhere [place] [address] John, classifiedCervical is, [place], Caterina Lopez, giaLong term [id number] [place], (current) use of , [place]. [place], [place], 163922235 opiate analgesic tel: [phone] , [place] [id number] . tel: tel:[phone] OFFICE/OUTPAT [facility] Back Pain Radiculopathy, Kanga s Referring IENT VISIT, [facility] (chief lumbar 7-201 [place]. Provider : EST Pain [place] complaint) regionCervicalgiaL 9 35 [facility], beryl term (current) Endy Lopez J, [address] use of opiate [place] [address] John, analgesicPostlamin is, [place], John, Caterina, ectomy syndrome, [id number] [place], not elsewhere , [place]. [place], MN, 758968105 classified tel: [phone] , [place] 97622491 . tel: tel: [phone] OFFICE/OUTPAT [facility] Back Pain Chronic pain Referring IENT VISIT, [facility] (chief syndromePostlamine 6-201 [place] . Provider: EST Pain [place] complaint) ctomy syndrome, 9 35 [facility], not elsewhere Endy Lopez J, [address] classifiedRadiculo [place] 7 235 [address] John, shane, lumbar is, [place], John, [place], regionCervicalgiaL [id number] [place], beryl term (current) , [place]. [place], [place] , 227084328 use of opiate tel: [phone] , [place] analgesic 88722891 . 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 Provider: EST Pain [place] complaint) opiate 9 [facility], analgesicPostlamin JohnEndy J, [address] ectomy syndrome, [place] 723 5 Ohms John, not elsewhere is, [place], John, Caterina, classifiedRadiculo 155610009 [place], shane, lumbar , [place]. [place], MN, 296139434 regionCervicalgia tel: [phone] , US 75311392 . tel: tel:[phone] OFFICE/OUTPAT [facility] Back Pain Postlaminectomy Carlos as Referring IENT VISIT, [facility] (chief syndrome, not 0-201 [place]. Pr ovider: EST Pain [place] complaint) elsewhere 9 7235 [facility], classifiedLow back John, Will J, [address] painCervicalgiaLon [place] 7 235 [address] John, g term (current) is, [place], John, [place], use of opiate 972136199 [place], analgesic , [place]. [place], [place], 110757363 tel:[phone] , [place] 48877287 . tel: tel:2 [phone] OFFICE/OUTPAT [facility] Back Pain Postlaminectomy Carlos as Referring IENT VISIT, [facility] (chief syndrome, not 0-201 [place]. Pr ovider: EST Pain [place] complaint) elsewhere 9 7235 [facility], classifiedLow back John, Will J, [address] painCervicalgiaLon [place] 7 235 [address] John, g term (current) is, [place], John, [place], use of opiate 939547286 [place], analgesic , [place]. [place], MN, 809193277 tel:[phone] , US 94691234 . tel: tel:2 [phone] OFFICE/OUTPAT [facility] Back Pain Postlaminectomy Carols as Referring IENT VISIT, [facility] (chief syndrome, not 1-201 [place]. Pr ovider: EST Pain [place] complaint) elsewhere 9 7235 [facility], classifiedLow back John, Will J, [address] painCervicalgiaEnc [place] 7 235 [address] more [place] for is, [place], John, [place], therapeutic drug [id number] [place], level , [place]. [place], [place], 205128241 monitoringLong tel: [phone] , [place] term (current) use 97933865 . tel: of opiate tel:2 [phone] analgesic 8773482 OFFICE/OUTPAT [facility] Back Pain Postlaminectomy March- Gonzalez as Referring IENT VISIT, [facility] (chief syndrome, not 1-201 [place]. Pr ovider: EST Pain Caterina complaint) elsewhere 9 7235 [facility], classifiedLow back John, Will J, [address] painCervicalgiaLon [place] 7 235 [address] John, g term (current) is, [place], John, Caterina, use of opiate 775334041 [place], analgesic , [place]. [place], [place], 321857025 tel: [phone] , [place] [id number] . tel: tel:2 [phone] OFFICE/OUTPAT [facility] Back Pain Postlaminectomy Feb-0 Garcia Referring IENT VISIT, [facility] (chief syndrome, not 2-201 Viry. Pr ovider: EST Pain Caterina complaint) elsewhere 9 7235 [facility], classifiedRadiculo John, Will J, [address] shane, lumbar [place] [address] hms John, regionCervicalgiaL is, [place], John, [place], beryl term (current) [id number] [place], use of opiate , [place]. [place], MN, 958738677 analgesic tel:[phone] , [place] [id number] . tel: tel:2 [phone] OFFICE/OUTPAT [facility] Back Pain Chronic pain Nov- Mario Referring IENT VISIT, [facility] (chief syndromeRadiculopa 3-201 [place] . Provider: EST Pain [place] complaint) thy, lumbar 9 7235 [facility], regionLow back John, Will J, [address] painLong term [place] 7235 O hms John, (current) use of is, [place], John, [place], opiate analgesic [id number] [place], , [place]. [place], [place], 265578878 tel: [phone] , [place] [id number] . tel: tel:[phone] [facility] Postlaminectomy Nov- Mario Refe [facility] syndrome, not 3-201 [place]. Provid er: Pain Caterina elsewhere 9 7235 [facility], classified Endy Lopez, [address] [place] [address] John, is, [place], Caterina Lopez, [id number] [place], , [place]. [place], [place], 753359760 tel: [phone] , [place] [id number] . tel: tel:[phone] OFFICE/OUTPAT [facility] Back Pain Radiculopathy, Kanga s Referring IENT VISIT, [facility] (chief lumbar regionLow [place]. Provider: EST Pain Caterina complaint) back painLong term 8 7235 [facility], (current) use of Endy Lopez, [address] opiate analgesic [place] 723 5 [address] John, is, [place], Caterina Lopez, 244867961 [place], , [place]. [place], [place], 444196732 tel: [phone] , [place] [id number] . tel: tel:[phone] [facility] Postlaminectomy Sep- Mario Refe [facility] syndrome, not 1-201 [place]. Provid er: Pain [place] elsewhere 8 7235 [facility], classified Endy Lopez, [address] [place] [address] John, is, [place], Caterina Lopez, [id number] [place], , [place]. [place], [place], 364925437 tel: [phone] , [place] [id number] . tel: tel:[phone] [facility] Postlaminectomy Aug- Garcia Refe [facility] Surgery syndrome, not 5-201 Viry. Provider: Pain Center elsewhere 8 7235 [facility], classified Endy Lopez, [address] [place] [address] John, is, [place], Caterina Lopez, [id number] [place], , [place]. [place], [place], 376641209 tel: [phone] , [place] [id number] . tel: tel: [phone] OFFICE/OUTPAT [facility] Back Pain Postlaminectomy Oct-2 Gonzalez as Referring IENT VISIT, [facility] (chief syndrome, not 2-201 [place]. Pr ovider: EST Pain [place] complaint) elsewhere 8 7235 [facility], classifiedRadiculo Endy Lopez, 7235 [facility] shane, lumbar [place] [address] John, regionLow back is, [place], John, Caterina, pain [id number] [place], , [place]. [place], [place], 354421779 tel: [phone] , [place] [id number] . tel: tel: [phone] [facility] Postlaminectomy Oct-0 Mario Refe [facility] syndrome, not 1-201 [place]. Provid er: Pain Caterina elsewhere 8 7235 [facility], classifiedLow back Endy Lopez J, [address] pain [place] 7235 [facility] John, is, [place], Chandana Lopeza, [id number] [place], , [place]. [place], [place], 344911714 tel: [phone] , [place] [id number] . tel: tel: [phone] [facility] Postlaminectomy Sep-2 Garcia Refe [facility] Surgery syndrome, not 7-201 Viry. Provider: Pain Center elsewhere 8 7235 [facility], classified John Will J, [address] [place] 7235 [facility] John, is, [place], Chandana Lopeza, [id number] [place], , [place]. [place], [place], 300369715 tel: [phone] , [place] [id number] . tel: tel:[phone] OFFICE/OUTPAT [facility] Back Pain Chronic pain Sep-1 Mario Referring IENT VISIT, [facility] (chief syndromePostlamine 9-201 [place] . Provider: EST Pain [place] complaint) ctomy syndrome, 8 [address] [facility], not elsewhere Endy Lopez, [address] classifiedRadiculo [place] 7 [address] John, shane, lumbar is, [place], John, Caterina, regionLow back [id number] [place], pain , [place]. [place], [place], 682414126 tel:+ [phone] , [place] [id number] . tel: tel:[phone] OFFICE/OUTPAT [facility] Back Pain Chronic pain Sep-0 Mario Referring IENT VISIT, [facility] (chief syndromeCervicalgi 5- [place] . Provider: EST Pain Caterina complaint) aPostlaminectomy 8 [address]235 [address] [facility], syndrome, not Endy Lopez, [address] elsewhere [place] [address] John, classifiedLow back is, [place], John, Caterina, painRadiculopathy, 902538778 [place], lumbar region , [place]. [place], [place], 858820259 tel: [phone] , [place] [id number] . tel: tel:[phone] OFFICE/OUTPAT [facility] Back Pain Postlaminectomy Aug-0 Gonzalez as Referring IENT VISIT, [facility] (chief syndrome, not 6- [place]. Pr ovider: EST Pain [place] complaint) elsewhere 8 [address] [facility], classifiedChronic Endy Lopez , [address] pain [place] [address] John, syndromeCervicalgi is, [place], John, [place], aLow back pain [id number] [place], , [place]. [place], [place], 560241860 tel: [phone] , [place] [id number] . tel: tel:[phone] OFFICE/OUTPAT [facility] Back Pain Chronic pain Kanu-0 Mario Referring IENT VISIT, [facility] (chief syndromeCervicalgi 6-201 [place] . Provider: EST Pain [place] complaint) aLow back pain 8 [address]235 [address] [facility], John, Will J, [address] [place] [address] John, is, [place], John, [place], [id number] [place], , [place]. [place], [place], 577677083 tel: [phone] , [place] [id number] . tel: tel: [phone] OFFICE/OUTPAT [facility] Back Pain CervicalgiaChronic Apr-1 K angas Referring IENT VISIT, [facility] (chief pain syndromeLow 3-201 [place]. Provider: EST Pain [place] complaint) back painLumbago 8 7235 [facility], with sciatica, John, Will J, [address] left [place] 7[address] John, sidePostlaminectom is, [place], Caterina Lopez, y syndrome, not [id number] [place], elsewhere , [place]. [place], [place], 610169443 classifiedLong tel:43 , [place] term (current) use 17179736 . tel: of opiate tel: [phone] analgesic [phone] OFFICE/OUTPAT [facility] Back Pain CervicalgiaChronic Apr-0 K angas Referring IENT VISIT, [facility] (chief pain syndromeLow 6-201 [place]. Provider: EST Pain Caterina complaint) back 8 7235 [facility], painPostlaminectom Endy oLpez J, [address] y syndrome, not [place] 7235 [address] John, elsewhere is, [place]John [place], classified [id number] [place], , [place]. [place], [place], 534829633 tel:[phone] , US [id number] . tel: tel: [phone] OFFICE/OUTPAT [facility] Back Pain CervicalgiaChronic Feb-0 K angas Referring IENT VISIT, [facility] (chief pain syndromeLow 6-201 [place]. Provider: EST Pain [place] complaint) back 8 7235 [facility], painPostlaminectom Endy Lopez J, [address] y syndrome, not [place] 7235 [address] Jhon, elsewhere is, [place], John, [place], classified [id number] [place], , [place]. [place], [place], 153245477 tel: [phone] , [place] [id number] . tel: tel: [phone] OFFICE/OUTPAT [facility] Back Pain CervicalgiaChronic K shlomo Referring IENT VISIT, [facility] (chief pain syndromeLow 8201 [place]. Provider: EST Pain [place] complaint) back 7 7235 [facility], painPostlaminectom John, Will J, [address] y syndrome, not [place] 7235 [address] John, elsewhere is, [place], John, [place], classified [id number] [place], , [place]. [place], [place], 854428845 tel:[phone] , [place] [id number] . tel: tel: [phone] OFFICE/OUTPAT [facility] Back Pain CervicalgiaLow Kangiqra s Referring IENT VISIT, [facility] (chief back 0-201 [place]. Provider : EST Pain [place] complaint) painPostlaminectom 7 7235 [facility], y syndrome, not John, Will J, [address] elsewhere [place] 7[address] John, classified is, [place], John, Caterina, [id number] [place], , [place]. [place], [place], 668738123 tel: [phone] , [place] [id number] . tel: tel: [phone] OFFICE/OUTPAT [facility] Back Pain Postlaminectomy Gonzalez as Referring IENT VISIT, [facility] (chief syndrome, not 9201 [place]. Pr ovider: EST Pain Caterina complaint) elsewhere 7 7235 [facility], classifiedLow back John, Will J, [address] painCervicalgia [place] [address] John, is, [place], John, [place], [id number] [place], , [place]. [place], [place], 684371979 tel: [phone] , [place] [id number] . tel: tel: [phone] OFFICE/OUTPAT [facility] Back Pain Low back May- Mario Ref erring IENT VISIT, [facility] (chief painCervicalgiaChr [place] . Provider: EST Pain [place] complaint) onic pain 7 7235 [facility], syndromePostlamine John, Endy J, [address] ctomy syndrome, [place] 7[address] John, not elsewhere is, [place], Caterina Lopez, classified [id number] [place], , [place]. [place], [place], 127384768 tel: [phone] , [place] [id number] . tel: tel: [phone] OFFICE/OUTPAT [facility] Back Pain Low back March-3 Mario Ref erring IENT VISIT, [facility] (chief painCervicalgiaChr [place] . Provider: EST Pain [place] complaint) onic pain 7 7235 [facility], syndromePostlamine Endy Lopez J, [address] ctomy syndrome, [place] 7235 [address] John, not elsewhere is, [place]John [place], classified [id number] [place], , [place]. [place], [place], 440132857 tel: [phone] , [place] [id number] . tel: tel: [phone] OFFICE/OUTPAT [facility] Back Pain Low back May-0 Mario Ref erring IENT VISIT, [facility] (chief painCervicalgiaChr [place] . Provider: EST Pain Caterina complaint) onic pain syndrome 7 7235 [facility], Endy Lopez J, [address] [place] 7235 [facility] John, is, [place], Caterina Lopez, [id number] [place], , [place]. [place], [place], 251300335 tel: [phone] , [place] [id number] . tel: tel: [phone] OFFICE/OUTPAT [facility] Back Pain CervicalgiaChronic Apr-0 K angas Referring IENT VISIT, [facility] (chief pain syndromeLow [place]. Provider: EST Pain Caterina complaint) back 7 7235 [facility], painPostlaminectom John, Endy J, [address] y syndrome, not [place] 7[address] John, elsewhere is, [place], Caterina Lopez, classified [id number] [place], , [place], [place], 574638391 tel:+ [phone] , [place] [id number] . tel: tel:[phone] OFFICE/OUTPAT [facility] Back Pain Low back Jan- Mario Ref erring IENT VISIT, [facility] (chief painCervicalgiaChr [place] . Provider: EST Pain [place] complaint) onic pain 7 7235 [facility], syndromePostlamine John, Endy J, [address] ctomy syndrome, [place] [address] John, not elsewhere is, [place], classified [id number] [place], , [place]. [place], [place], 680291115 tel: [phone] , [place] [id number] . tel: tel:[phone] OFFICE/OUTPAT [facility] Back Pain CervicalgiaLow Kanga s Referring IENT VISIT, [facility] (chief back painChronic [place]. Provider: EST Pain Caterina complaint) pain syndrome 7 7235 [facility], Endy Lopez J, [address] [place] [address] John, is, [place], Caterina Lopez, [id number] [place], , [place]. [place], [place], 658702522 tel: [phone] , [place] [id number] . tel: tel:[phone] OFFICE/OUTPAT [facility] Back Pain Low back Mario Ref erring IENT VISIT, [facility] (chief painCervicalgiaChr [place] . Provider: EST Pain Caterina complaint) onic pain syndrome 7 7235 [facility], John Will J, [address] [place] [address] John, is, [place], John, [place], [id number] [place], , [place]. [place], [place], 233909211 tel:[phone] , US [id number] . tel: tel: [phone] OFFICE/OUTPAT [facility] Back Pain Low back Dec-0 Mario Ref erring IENT VISIT, [facility] (chief painCervicalgiaPos 2 [place] . Provider: EST Pain [place] complaint) [facility]ctomy 6 [facility] syndrome, not John, Will J, [address] elsewhere [place] 7235 [address] John, classifiedChronic is, [place], John, Caterina, pain syndrome [id number] Janae [place], , [place]. [place], [place], [id number] tel:[phone] , [place] [id number] . tel: tel: [phone] OFFICE/OUTPAT [facility] Back Pain Low back Nov-0 Mario Ref erring IENT VISIT, [facility] Clinic (chief painCervicalgiaPos Rosetta . Provider: EST Pain Caterina complaint) [facility], syndrome, not John, Will J, [address] elsewhere [place] [address] [place], classified [place], [place], [place], [place], [id number] [place], , [place], [place], [id number] tel:[phone] , [place] [id number] . tel: tel: [phone] OFFICE/OUTPAT [facility] Back Pain Lumbago with Aug- Van Referring IENT VISIT, [facility] (chief sciatica, left 4-201 [place] Provider: EST Pain Caterina complaint) sideLong term [address] [facility], (current) use of [address] Will J, [address] opiate John, [address] John, analgesicCervicalg [place] Kalin e, [place], [place], [place], [id number] [place], [place], [id number] , [place]. [address] , [place] tel: . tel: [phone] tel: [phone] OFFICE/OUTPAT [facility] Back Pain CervicalgiaLow Kanga s Referring IENT VISIT, [facility] (chief back Rosetta. Provider : EST Pain [place] complaint) painPostlaminectom 6 7235 [facility], y syndrome, not John, Will J, [address] elsewhere [place] [address] [place], classified [place], [place], John [place], [id number] [place], , [place], [place], [id number] tel: [phone] , [place] [id number] . tel: tel: [phone] OFFICE/OUTPAT [facility] Back Pain Low back Mario Ref erring IENT VISIT, [facility] (chief painCervicalgiaPos Rosetta . Provider: EST Pain Caterina complaint) tlaminectomy 6 7235 [facility], syndrome, not John, Will J, [address] elsewhere [place] [address] [place], [place], [place], [place] Caterina, [id number] [place], , [place], [place], [id number] tel: [phone] , [place] [id number] . tel: tel: [phone] OFFICE/OUTPAT [facility] Back Pain CervicalgiaLow Kanga s Referring IENT VISIT, [facility] (chief back painLumbago Rosetta. Provider: EST Pain [place] complaint) with sciatica, 6 7235 [facility], left side John, Will J, [address] [place] [address] [place], is, [place], [place], [place], [id number] [place], , [place], [place], [id number] tel: [phone] , [place] [id number] . tel: tel: [phone] OFFICE/OUTPAT [facility] Back Pain Low back Mario Ref erring IENT VISIT, [facility] (chief painCervicalgia Rosetta. Provider: EST Pain Caterina complaint) 6 [facility] John, Endy J, [address] [place] [address] [place], is, [place], Caterina Lopez, [id number] [place], , [place], [place], [address] tel:[phone] , [place] [id number] . tel: tel:[phone] OFFICE/OUTPAT [facility] Back Pain CervicalgiaLow March- Kanga s Referring IENT VISIT, [facility] (chief back painLumbago 0- Rosetta. Provider: EST Pain [place] complaint) with [facility]atica, 6 [facility] John, Endy Patel, [address] sidePostlaminectom [place] 7 [address] John, y syndrome, not is, [place], John, Caterina, elsewhere [id number] [place], classified , [place]. [place], [place], [address] tel: [phone] , [place] [id number] . tel: tel:[phone] OFFICE/OUTPAT [facility] Back Pain Low back Apr-2 Mario Ref erring IENT VISIT, [facility] (chief painCervicalgiaLum Rosetta . Provider: EST Pain [place] complaint) bago [facility] 6 [facility], [facility], left Endy Lopez, [address] side [place] [address] [place], [place], [place], Caterina Lopez, [id number] [place], , [place], [place], [id number] tel: [phone] , [place] [id number] . tel: tel:[phone] OFFICE/OUTPAT [facility] Back Pain Low back Apr-0 Mario Ref erring IENT VISIT, [facility] (chief painCervicalgia 6 Rosetta. Provider: EST Pain [place] complaint) 6 [facility], Endy Lopez, [address] [place] [address] [place], is, [place], Caterina Lopez, [id number] [place], , [place]. [place], [place], [address] tel: [phone] , [place] [id number] . tel: tel: [phone] OFFICE/OUTPAT [facility] Back Pain Low back Mar-2 Mario Ref erring IENT VISIT, [facility] (chief painCervicalgiaLum 5-201 [place] . Provider: NEW Pain [place] complaint) bago with 6 [address] [facility], sciatica, left John, Will J, [address] sideLong term [place] [address] John, (current) use of is, [place], John, Caterina, opiate [id number] [place], analgesicPostlamin , [place]. [place], [place] , [id number] ectomy syndrome, tel: [phone] , [place] not elsewhere [id number] . tel: classified tel: [phone] Family History Family Member Type Diagnosis Age At Onset Mother Problem (finding) back pain Payers Payer name Insurance type Covered libertarian ID Authorization(s ) Medicare MB [id number] Medica [facility] [id number] Social History Type Description Quantity Date Captured [...] due Goal UDT. Due on due Goal TAR PROCESSING TECHNICIAN Paperwork. Due on due Goal Weight. Due [...] Review Allergy List. Due on due Goal ACCIDENT EXAMINER Scanned. Due on due Goal Unhealthy drug [...] due Goal FIT. Due on due Goal ACCIDENT EXAMINER Scanned. Due on due Goal Hepatitis C screening. Due on Goal FIT-DNA. Due on due Goal OARS. Due on due Goal Weight. Due on due Goal Zoster vaccine (1st). Due on due Goal UDT. Due on due Goal ALT (SGPT). Due on d ue Goal TAR PROCESSING TECHNICIAN Paperwork. Due on due Goal CT-Colonography. Due [...] Order Annual PT. Due on due Goal TAR PROCESSING TECHNICIAN Paperwork. Due on due Goal ACCIDENT EXAMINER Scanned. Due on due Goal Height. Due [...] Goal Hepatitis C screening. Due on Goal ACCIDENT EXAMINER Scanned. Due on due Goal Unhealthy drug [...] due Goal FIT. Due on due Goal TAR PROCESSING TECHNICIAN Paperwork. Due on due Goal Hepatitis C screening. Due on du Goal Zoster vaccine (). Due on due Goal Lipid panel. Due on due Goal TAR PROCESSING TECHNICIAN Paperwork. Due on due Goal ALT (SGPT). [...] due Goal UDT. Due on due Goal ACCIDENT EXAMINER Scanned. Due on due Goal Medication Reconciliation. Due o n due Goal TAR PROCESSING TECHNICIAN Paperwork. Due on due Goal ALT (SGPT). Due on d ue Goal Unhealthy drug use screening. on due Goal FIT-DNA. Due on due Goal Creatinine. Due on d ue Goal Lipid panel. Due on due Goal ACCIDENT EXAMINER Scanned. Due on due Goal Tobacco Use. [...] Goal Update Social History. Due on Goal TAR PROCESSING TECHNICIAN Paperwork. Due on due Goal ACCIDENT EXAMINER Scanned. Due on due Goal AST (SGOT). [...] e Goal UDT. Due on due Goal ACCIDENT EXAMINER Scanned. Due on due Goal AST (SGOT). Due on d ue Goal OARS. Due on due Goal Height. Due on due Goal ALT (SGPT). Due on d ue Goal Order Annual PT. Due on due Goal Review Allergy List. Due on due Goal PHQ-9. Due on due Goal TAR PROCESSING TECHNICIAN Paperwork. Due on due Goal Tobacco Use. Due on due Goal Medication Reconciliation. Due o n due Goal Weight. Due on due Goal Medication Reconciliation. Due o n due Goal PHQ-9. Due on due Goal TAR PROCESSING TECHNICIAN Paperwork. Due on due Goal UDT. Due on due Goal AST (SGOT). Due on d ue Goal ACCIDENT EXAMINER Scanned. Due on due Goal OARS. Due [...] due Goal PHQ-9. Due on due Goal TAR PROCESSING TECHNICIAN Paperwork. Due on due Goal Order Annual PT. Due on due Goal OARS. Due on due Goal ACCIDENT EXAMINER Scanned. Due on due Goal ALT (SGPT). Due on d ue Goal AST (SGOT). Due on d ue Goal UDT. Due on due Goal Tobacco Use. Due on due Goal Medication Reconciliation. Due o n due Goal OARS. Due on due Goal ACCIDENT EXAMINER Scanned. Due on due Goal Update Social History. Due on Goal AST (SGOT). Due on d ue Goal Height. Due on due Goal Weight. Due on due Goal Order Annual PT. Due on due Goal ALT (SGPT). Due on d ue Goal PHQ-9. Due on due Goal UDT. Due on due Goal Review Allergy List. Due on due Goal TAR PROCESSING TECHNICIAN Paperwork. Due on due Goal AST (SGOT). Due on d ue Goal Review Allergy List. Due on due Goal ALT (SGPT). Due on d ue Goal UDT. Due on due Goal Tobacco Use. Due on due Goal Order Annual PT. Due on due Goal ACCIDENT EXAMINER Scanned. Due on due Goal Update Social History. Due on Goal Medication Reconciliation. Due o n due Goal OARS. Due on due Goal Height. Due on due Goal Weight. Due on due Goal PHQ-9. Due on due Goal TAR PROCESSING TECHNICIAN Paperwork. Due on due Goal Order Annual PT. Due on due Goal OARS. Due on due Goal Update Social History. Due on du e Goal AST (SGOT). Due on d ue Goal UDT. Due on due Goal Height. Due on due Goal ALT (SGPT). Due on d ue Goal TAR PROCESSING TECHNICIAN Paperwork. Due on due Goal ACCIDENT EXAMINER Scanned. Due on due Goal PHQ-9. Due [...] Goal Tobacco Use. Due on due Goal ACCIDENT EXAMINER Scanned. Due on due Goal TAR PROCESSING TECHNICIAN Paperwork. Due on due Goal AST (SGOT). Due on d ue Goal ACCIDENT EXAMINER Scanned. Due on due Goal Order Annual PT. Due on due Goal Tobacco Use. Due on due Goal Medication Reconciliation. Due o n due Goal Review Allergy List. Due on due Goal UDT. Due on due Goal Weight. Due on due Goal ALT (SGPT). Due on d ue Goal PHQ-9. Due on due Goal Height. Due on due Goal TAR PROCESSING TECHNICIAN Paperwork. Due on due Goal Update Social History. Due on Goal OARS. Due on due Goal Weight. Due on due Goal AST (SGOT). Due on d ue Goal Medication Reconciliation. Due o n due Goal ALT (SGPT). Due on d ue Goal Review Allergy List. Due on due Goal UDT. Due on due Goal Update Social History. Due on Goal ACCIDENT EXAMINER Scanned. Due on due Goal PHQ-9. Due on due Goal OARS. Due on due Goal Tobacco Use. Due on due Goal TAR PROCESSING TECHNICIAN Paperwork. Due on due Goal Height. Due on due Goal Order Annual PT. Due on due Goal Tobacco cessation counseling com pleted Goal Review Allergy List. Due on due Goal TAR PROCESSING TECHNICIAN Paperwork. Due on due Goal OARS. Due on due Goal Medication Reconciliation. Due o n due Goal Weight. Due on due Goal UDT. Due on due Goal Height. Due on due Goal Tobacco Use. Due on due Goal AST (SGOT). Due on d ue Goal Order Annual PT. Due on due Goal ACCIDENT EXAMINER Scanned. Due on due Goal Update Social History. Due on Goal PHQ-9. Due on due Goal ALT (SGPT). Due on d ue Goal UDT. Due on due Goal Medication Reconciliation. Due o n due Goal TAR PROCESSING TECHNICIAN Paperwork. Due on due Goal Update Social [...] due Goal Height. Due on due Goal ACCIDENT EXAMINER Scanned. Due on due Goal AST (SGOT). Due on d ue Goal ACCIDENT EXAMINER Scanned. Due on due Goal TAR PROCESSING TECHNICIAN Paperwork. Due on due Goal ALT (SGPT). [...] ALT (SGPT). Due on d ue Goal TAR PROCESSING TECHNICIAN Paperwork. Due on due Goal UDT. Due on due Goal AST (SGOT). Due on d ue Goal Medication Reconciliation. Due o n due Goal Weight. Due on due Goal Height. Due on due Goal PHQ-9. Due on due Goal ACCIDENT EXAMINER Scanned. Due on due Goal Tobacco Use. [...] ANALYSIS , URINE, WITH Ordered MED REPORT ([id number]), Ordered on: Future Order: Lab Order Drug Test Def 22+ Cl[address] s (G0483), Ordered Ordered on: Future Order: Lab Order Drug Test Def 22+ Cl[address] (G0483), Ordered Ordered on: Future Order: Lab Order COMPLIANCE DRUG ANALYSIS , URINE, WITH Ordered MED REPORT ([id number]), Ordered on: Future Order: Lab Order MRSA/MSSA Screening ([id number]), Ordered Ordered on: Future Order: Lab Order COMPLIANCE DRUG ANALYSIS , URINE, WITH Ordered MED REPORT ([id number]), Ordered on: History Of Present Illness Encounter [...] her L sydni ulder on 12/30/21 with [facility] in order for infection to clear. Additional [...] h er L shoulder on 12/30/21 with [facility] in order for in fection to clear. [...] to her Yomi mann on 12/30/21 with [facility] in order for infection to clear. Additional [...] her L sydni ulder on 12/30/21 with [facility] in order for infection to clear. Additional [...] to her L shoulder on 12/30/21 with [facility] in order for infection to clear. Additional [...] heat and pain meds/drugs. Back Pain (comments) nAgie presents for a virtual follow up and medications refill f or her back and neck pain. Prescribed medicatio n offers 75% pain relief. Denies SE.Neck, back , L shoulder and bilateral hips/knees/shoulder pain have continued to be worse the past month . Typical flares with colder weather. Scheduled f or hardware removal surgery on 12/30/21 with [facility] in order for infection to clear. Will [...] is scheduled for hardware removal surgery [place] with [facility] in order for infection to ca ar. [...] for hardware removal surgery in December with [facility] in order for in fection to clear. [...] L side weakness -- was treated by [facility] ic. Was put on Warfarin, unsure if it can be held for sinus surgery or SCS revision.Presents [facility] #3 oxycodone 5mg -- on track. [...] and enroll ed in a program through [facility]. She also not es of increasing symptoms [...] to refill her medications. She will call [facility] if sh e has any questions [...] injury pain. She is going in again tomhi row to decide what to do. She [...] mo re headaches. She was seen by [facility] who told her she has a screw loose. She was referred to Dr. Gonzalez at [facility]. She has not heard from t hem. [...] tomorrow. She said s he will get [place] for 4-5 days maximum followi ng the [...] and states it aggrevated her pain. [facility] continues to be effective for reduci ng her pain. She will be completing diagnosti c injections today through [facility]. No other concerns today. [...] #1 Oxycodone, surplus. She was hospitalized in [place] about [place] w [place] ago for her back pain. She is having an epd iural steroid injection done at [facility] tomorrow. She isn't sure how well the [...] neck surgery. ENT referred her to an dermatopathologist for additional evaluation. No other concerns today. [...] Patient completed right shou lder imaging at [facility] and reports a tear. She plans to [...] will be undergoing a Cervical Fusion with [facility]. She will be following up with [facility] [...] [facility]. She has noticed increased restlessne [...] ferred by Dr. Amna Fletcher from [facility]. Angie is here today for her initial consult regarding her back, neck and knee pain which bega n years ago and has been aggrevated from [facility]. She had a lumbar fusion in the [...] regul christian. She recently moved back to [place] from [place]. No ot her concerns today. Medical records:Dr. Rodriguez at [facility] - neck surgeon Dr. Amna Fletcher a t [facility] - PCP recordsPast treatmen t:SABAS [...] 10/27/2020. Additional hardwar e removal surgery through [facility] completed 12/30/21. Another s urgery to replace [...] implant on 07/11. 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y [facility]one [facility] [...]
[2022-08-08 23:21] VITALS: BP 108/70; PULSE 78; RESP 16; O2SAT 97
--- NOTE | 2022-08-08 23:38 | PC.NURSE ---
Patient reports pain. Dr. Casey is aware.
== END 2022-08-09 | disposition home or self-care (01) ==
PROVIDERS: Emergency Provider Family Medicine; PCP Family Medicine
DX: S89.82XA Other specified injuries of left lower leg, initial encounter (principal); S89.91XA Unspecified injury of right lower leg, initial encounter; S49.92XA Unspecified injury of left shoulder and upper arm, initial encounter; W19.XXXA Unspecified fall, initial encounter; Z91.81 History of falling; Y93.9 Activity, unspecified; Y92.9 Unspecified place or not applicable; Y99.9 Unspecified external cause status
CPT/HCPCS: 73030; 73560; 99283

== ENCOUNTER 2022-08-14 15:53 | Emergency (ER) | payer MEDICARE, OTHER, SELFPAY ==
[2022-08-14 16:12] VITALS: BP 127/77; PULSE 93; RESP 18; TEMP 36.7; O2SAT 96; BMI 27.3
--- NOTE | 2022-08-14 17:35 | CRLHL7_ITS ---
For Patients: As a result of the Cures Act, medical imaging exams and procedure reports are released immediately into your electronic medical record. You may view this report before your referring provider. If you have questions, please contact your health care provider. Indication: Pain Technique: Three views right knee Comparison: No comparison Findings: Right knee total arthroplasty and satisfactory position. No fracture. No effusion. Dictated by Bonny Marr MD @ 08/14/2022 6:31:16 PM (Electronically Signed)
--- NOTE | 2022-08-14 17:35 | CRLHL7_ITS ---
For Patients: As a result of the Cures Act, medical imaging exams and procedure reports are released immediately into your electronic medical record. You may view this report before your referring provider. If you have questions, please contact your health care provider. Indication: Left shoulder pain. Technique: Left shoulder 2 views. Comparison: 08/08/2022. Findings: Bones: Unchanged periprosthetic fracture plane along the superolateral aspect of the proximal humerus. No new fracture. Joint spaces: Postsurgical changes of reverse total shoulder arthroplasty. Partially visualized posterior spinal fusion of the cervical thoracic junction. AC joint is unremarkable. Soft tissues: Partially visualized spinal cord stimulator leads. Impression: No significant interval change. Left reversed total shoulder arthroplasty with unchanged periprosthetic fracture plane along the superolateral aspect of the proximal humerus. Dictated by Aston Sheth MD @ 08/14/2022 6:30:10 PM (Electronically Signed)
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
--- OUTSIDE RECORDS SUMMARY | 2022-08-14 17:39 | XMS_ITS | Continuity of Care Document ---
:1965 Author Organization [facility] Address [address] [place] [address] Phone Care Team Providers Name Role Phone [...] rs Description For Visit Copied on Encounter [facility] No Information Nov- ZProvider Arthritis Dierks 6-[address] [place] 4 . . Rheumatolo gy, [address] [place] [address], [id number], [place] tel:[phone] [facility] TOBACCO USE Apr-1 Michele Arthritis DISORDEROBESITY 8-201 Nara. And NOSOSTEOPOROSIS NOS [address], gy, [address], [address], [place], [id number], [place], [place]. [id number], tel:[phone] tel:[phone] [facility] Age-related Apr-0 ZProvider Arthritis Dierks osteoporosis w/o 7-[address] [place] current 4 . . Rheumatolo pathological gy, [address] [place] [address], [id number], [place] tel:[phone] [facility] OBESITY NOSTOBACCO Mar-2 ZProvider Arthritis USE 8[address] And DISORDEROSTEOPOROSI 4 . . Rheumatolo S NOSMALAISE AND gy, [address], [place], [place], [id number], [place] tel:[phone] [place] [facility] [place] Tobacco useObesity, Mar-2 Michele Arthritis unspecifiedAge-rela Nara. And mary osteoporosis 4 [address]o [address], gy, [address], [address] fracture [place], [address], [place], [place], [id number], [place], [place]. [id number], tel:[phone] tel:[phone] Family History Family Member Type Diagnosis Age [...]
--- OUTSIDE RECORDS SUMMARY | 2022-08-14 17:39 | XMS_ITS | Continuity of Care Document ---
:1965 Author Organization [facility] Address [address] [place] [address] Care Team Providers Name Role Phone [facility] Unavailable Unavailable Procedures Procedure Date IMPLANT [...] Visit Copied on Encounter [facility] No [facility] Provider: Surgery Surgery Surgery [facility]. David, [address], [place], [place], [place] [id number], [place], [place], , [place] [id number], [address]. [place]. tel: [phone] [facility] No Twin Referring [address] Provider: Surgery Surgery Surgery [facility]. David, [address], [place], [place], [place] [id number], [place], [place], , [place] [id number], [id number]. [place]. tel: [phone] [facility] No Twin [address] Provider: Surgery Surgery Surgery [facility]. Jose [address] [facility] [address], [facility], [place], [place] , [place], [id number], [place], [address]. [place] [id number], tel: [phone] tel:[phone] Family History Family Member Type Diagnosis Age At Onset No Information Payers Payer name Insurance type Covered constitution party ID Authorization(s ) Medicare [id number] [employer] [facility] [id number] Social History Type Description Quantity Date Captured [...]
--- OUTSIDE RECORDS SUMMARY | 2022-08-14 17:39 | XMS_ITS | Continuity of Care Document ---
:1965 Author Organization [facility] Address [address] [place] [address] Care Team Providers Name Role Phone Mor Singleton CRNA Unavailable Unavailable Procedures Procedure Date ANESTH, HEAD/NECK/PTRUNK ANESTH PERC IMG TX SP PROC ANESTH PERC IMG TX SP PROC Advance Directives Directive Yes / No Effective Date File Name No Information Encounters Encounter Practice Location Reason(s) Diagnoses Date Provider Provide rs Description For Visit Copied on Encounter [facility] No Areli Referring [facility] Mor. Provider: Lois CISNEROS Surgery [address] [place] [address], [place] [facility] [address] [place] [id number], [facility], [place], [place], [place], [place], [id number], [id number] [place]. . tel:[phone] tel:[phone] [facility] No [facility] Referring Anesthesia [facility] -2019 Nilay. Provider: Lois CISNEROS Surgery [address] [facility], [facility] [place], [address] [id number], [id number], [facility]. [facility] tel:[phone] [place], [place], [phone] . tel:[phone] [facility] No [facility] Referring Anesthesia [facility] -2019 Nilay. Provider: PA, [address] Surgery [address] [facility] [address], [place], Endy J, [place], [place], [place], [address]235 [facility] [id number], [id number], John, [facility]. Denisa tel:[phone] s, [place], [id number] . tel:[phone] Family History Family Member Type Diagnosis Age At Onset No Information Payers Payer name Insurance type Covered republican ID Authorization(s ) Medicare MB [id number] [facility] [id number] Social History Type Description Quantity Date Captured [...]
--- OUTSIDE RECORDS SUMMARY | 2022-08-14 17:40 | XMS_ITS | Continuity of Care Document ---
:1965 Author Organization [facility] Address [address] [place] [address] Phone Care Team Providers Name Role Phone [...] rs Description For Visit Copied on Encounter [facility] No [place] Referring [facility] Information -2007 Su. Provider : Arthur [address], [address], [address] [facility], [place], [place], [place], [id number], [place], [id number], . [id number]. tel:[phone] tel:[phone] tel:[phone] [facility] Blurred No Adalberto Referring [facility] Information -2007 Deep. Provider: Arthur, (chief [address]) [address] [facility], [address], [address], [place], [place], [place], [place], [place], [place], [id number], [place], [id number], . [address]. tel:[phone] tel:[phone] tel:[phone] Family History Family Member Type Diagnosis Age [...]
--- OUTSIDE RECORDS SUMMARY | 2022-08-14 17:40 | XMS_ITS | Continuity of Care Document ---
:1965 Author Organization [facility] Address [address] [place] [address] Phone Care Team Providers Name Role Phone [...] elctr each OFFICE/OUTPATIENT VISIT, EST SCS [employer] OFFICE/OUTPATIENT VISIT, EST OFFICE/OUTPATIENT VISIT, EST [...] For Visit Copied on Encounter OFFICE VISIT, [facility] Back Pain Anxiety disorder, Ka ngas [facility] (chief unspecifiedChronic 0-202 [place]. TELEMEDICINE Pain Caterina complaint) migraine without 2 [address] Clinic, aura, intractable, John, [address] without status [place], migrainosusOsteoar is, [place], Caterina, thritisPain in [id number] [place], left shoulderPain , [place]. [id number] in left hipPain in tel:+ , [place] right hipPain in [id number] tel:+ left kneePain in [id number] right kneeOther spondylosis, cervical regionOther spondylosis, lumbar regionRadiculopath y, lumbar regionPain in thoracic spineFibromyalgiaP ostlaminectomy syndrome, not elsewhere classifiedLong term (current) use of opiate analgesic OFFICE VISIT, [facility] Back Pain OsteoarthritisChro K [facility] (chief saul migraine [place]. Provide r: TELEMEDICINE Pain Medon complaint) without aura, [facility], intractable, John, Will J, [address] without status [place] [address] John, migrainosusAnxiety is, [place], John, Caterina, disorder, [id number] [place], unspecifiedPain in , [place]. s, [place] , [id number] left shoulderPain tel: [phone] , [place] in left hipPain in 29038874 . tel: right hipPain in tel:2 [phone] left kneePain in 831523 5 right kneeOther spondylosis, cervical regionOther spondylosis, lumbar regionRadiculopath y, lumbar regionPain in thoracic spinePostlaminecto my syndrome, not elsewhere classifiedFibromya lgiaLong term (current) use of opiate analgesic OFFICE VISIT, [facility] Pain in left [facility] (chief shoulderAnxiety [place]. TELEMEDICINE Pain Caterina complaint) disorder, 2 [address] Clinic, unspecifiedChronic John, [address] migraine without [place] John, aura, intractable, is, [place], Caterina, without status [id number] [place], migrainosusOsteoar , [place]. [id number] thritisPain in tel: , US right hipPain in [id number] tel: left hipPain in 74410543 left kneePain in right kneeOther spondylosis, cervical regionOther spondylosis, lumbar regionRadiculopath y, lumbar regionPain in thoracic spinePostlaminecto my syndrome, not elsewhere classifiedFibromya lgiaLong term (current) use of opiate analgesic OFFICE VISIT, [facility] Pain in left [facility] (chief hipAnxiety [place]. TELEMEDICINE Pain Medon complaint) disorder, 2 [address] Clinic, unspecifiedChronic John, [address] migraine without [place] John, aura, intractable, is, [place], Caterina, without status [id number] [place], migrainosusOsteoar , [place]. [id number] thritisPain in tel: , US left shoulderPain 88001789 tel: in right hipPain 66611604 in left kneePain in right kneeOther spondylosis, cervical regionOther spondylosis, lumbar regionRadiculopath y, lumbar regionPain in thoracic spineFibromyalgiaP ostlaminectomy syndrome, not elsewhere classifiedLong term (current) use of opiate analgesic [facility] No Information [facility] [place]. Pain Medon 2 [address] [facility], John, [address] [place], is, [place], Caterina, [id number] [place], , [place]. [id number] tel: , [place] [id number] tel: [phone] OFFICE/OUTPAT [facility] Back Pain Anxiety disorder, Ka [facility] Referring IENT VISIT, [facility] (chief unspecifiedChronic [place] . Provider: EST Pain Medon complaint) migraine without 2 [address] [facility], aura, intractable, John, Will J, [address] without status [place] [address] John, migrainosusOsteoar is, [place], John, Caterina, thritisPain in [id number] [place], left shoulderPain , US. s, [place], 858108117 in left hipPain in tel: [phone] , US right hipPain in 96702968 . tel: left kneePain in tel:2 [phone] right kneeOther 4803440 spondylosis, cervical regionOther spondylosis, lumbar regionRadiculopath y, lumbar regionPain in thoracic spineFibromyalgiaP ostlaminectomy syndrome, not elsewhere classifiedLong term (current) use of opiate analgesic OFFICE VISIT, [facility] Chronic migraine Jan- Jens gas [facility] (chief without aura, [place]. TELEMEDICINE Pain Medon complaint) intractable, 2 [address] [facility], without status John, [address] migrainosusAnxiety [place] John, disorder, is, [place], Medon, unspecifiedOsteoar [id number] [place], thritisPain in , [place]. 206252006 left shoulderPain tel: , [place] in right hipPain 34476072 tel: in left hipPain in 65352441 right kneePain in left kneeOther spondylosis, cervical regionOther spondylosis, lumbar regionRadiculopath y, lumbar regionPain in thoracic spineFibromyalgiaP ostlaminectomy syndrome, not elsewhere classifiedLong term (current) use of opiate analgesic [facility] [place] Provider: Pain Caterina 2 [address] [facility], John Will J, [address] [place] [address] John, is, [place], John, Medon, [id number] [place], , [place]. s, [place], [id number] tel: [phone] , [place] [id number] . tel: tel: [phone] OFFICE VISIT, [facility] Pain Radiculopathy, [facility] (chief lumbar [place]. TELEMEDICINE Pain Caterina complaint) regionPostlaminect 2 [address] [facility], marquis syndrome, not John, [address] elsewhere [place] John, classifiedPain in is, [place], Medon, left hipAnxiety [id number] MN, disorder, , US. [id number] unspecifiedPain in tel: , US thoracic 51274816 tel: spineOsteoarthriti [phone] sChronic migraine without aura, intractable, without status migrainosusPain in right hipPain in left shoulderPain in right kneePain in left kneeFibromyalgiaOt her spondylosis, lumbar regionOther spondylosis, cervical regionLong term (current) use of opiate analgesicEncounter for therapeutic drug level monitoring OFFICE VISIT, [facility] Pain Radiculopathy, [facility] (chief lumbar [place]. Provider: TELEMEDICINE Pain Medon complaint) regionPostlaminect 2 [address] [facility], amrquis syndrome, not John, Will J , [address] elsewhere [place] [address] John classifiedPain in is, [place], John, Caterina, left hipAnxiety [id number] Augusta fischer [place], disorder, , [place]. s, [place], [id number] unspecifiedPain in tel: [phone] , [place] thoracic [id number] . tel: spineOsteoarthriti tel : [phone] sChronic migraine 13088 45 without aura, intractable, without status migrainosusPain in right hipPain in left shoulderPain in right kneePain in left kneeFibromyalgiaOt her spondylosis, lumbar regionOther spondylosis, cervical regionLong term (current) use of opiate analgesic OFFICE VISIT, [facility] Radiculopathy, [facility] Referring [facility] (chief lumbar [place]. Provider: TELEMEDICINE Pain Caterina complaint) regionPostlaminect 2 [address] [facility], marquis syndrome, not Endy Lopez J , [address] elsewhere [place] [address] John classifiedPain in is, [place], John, Medon, left hipAnxiety [id number] Augusta fischer [place], disorder, , [place]. s, [place], 396482731 unspecifiedPain in tel: [phone] , [place] thoracic 52897986 . tel: spineOsteoarthriti tel : [phone] sChronic migraine 40680 45 without aura, intractable, without status migrainosusPain in right hipPain in left shoulderPain in right kneePain in left kneeFibromyalgiaOt her spondylosis, lumbar regionLong term (current) use of opiate analgesicOther spondylosis, cervical region OFFICE VISIT, [facility] Back Pain Radiculopathy, [facility] (chief lumbar [place]. TELEMEDICINE Pain Medon complaint) regionPostlaminect 1 [address] [facility], marquis syndrome, not John, [address] elsewhere [place] John classifiedPain in is, [place], Caterina, left hipAnxiety [id number] [place], disorder, , US. 044522115 unspecifiedPain in tel: , US thoracic 66122586 tel: spineOsteoarthriti [phone] sChronic migraine without aura, intractable, without status migrainosusPain in right hipPain in left shoulderPain in right kneePain in left kneeFibromyalgiaOt her spondylosis, lumbar regionLong term (current) use of opiate analgesicOther spondylosis, cervical region OFFICE/OUTPAT [facility] Other spondylosis, shlomo Referring IENT VISIT, [facility] (chief cervical [place]. Provide r: EST Pain Medon complaint) regionRadiculopath 1 [address] [facility], y, lumbar John, Will J, [address] regionPostlaminect [place] [address] John, marquis syndrome, not is, [place], John, Medon, elsewhere [id number] [place], classifiedPain in , [place]. s, MN, 307993644 left hipAnxiety tel: [phone] , [place] disorder, 85578465 . tel: unspecifiedPain in tel :2 [phone] thoracic 1785522 spineOsteoarthriti sChronic migraine without aura, intractable, without status migrainosusPain in right hipPain in left shoulderPain in right kneePain in left kneeFibromyalgiaOt her spondylosis, lumbar regionLong term (current) use of opiate analgesic OFFICE VISIT, [facility] Other spondylosis, anglucrecia EST [facility] (chief cervical [place]. TELEMEDICINE Pain Caterina complaint) regionRadiculopath 1 [address] [facility], y, lumbar John, [address] regionPostlaminect [place] John, marquis syndrome, not is, [place], Medon, elsewhere [id number] [place], classifiedPain in , US. 377719978 left hipAnxiety tel: , [place] disorder, 38814299 tel: unspecifiedPain in 88146591 thoracic spineOsteoarthriti sChronic migraine without aura, intractable, without status migrainosusPain in right hipPain in left shoulderPain in right kneePain in left kneeFibromyalgiaOt her spondylosis, lumbar regionLong term (current) use of opiate analgesic OFFICE VISIT, [facility] Other spondylosis, Sep- K shlomo Referring [facility] (chief cervical [place]. Provider: TELEMEDICINE Pain Caterina complaint) regionRadiculopath 1 [address] [facility], y, lumbar John, Will J, [address] regionPostlaminect [place] [address] John, marquis syndrome, not is, [place], John, Medon, elsewhere [id number] [place], classifiedPain in , [place]. s, MN, 817219299 left hipAnxiety tel: [phone] , [place] disorder, 80676226 . tel: unspecifiedPain in tel : [phone] thoracic 0340173 spineOsteoarthriti sChronic migraine without aura, intractable, without status migrainosusPain in right hipPain in left shoulderPain in right kneePain in left kneeFibromyalgiaOt her spondylosis, lumbar regionLong term (current) use of opiate analgesic [facility] Encounter for Mario Referr ing [facility] therapeutic drug [place]. Pro vider: Pain Medon level 1 [address] [facility], monitoringLong John, Will J, [address] term (current) use [place] [address] John, of opiate is, [place], John, Medon, analgesic [id number] [place], , [place]. s, [place], 208425631 tel: [phone] , [place] 88606395 . tel: tel: [phone] OFFICE/OUTPAT [facility] Other spondylosis, Aug-0 K shlomo Referring IENT VISIT, [facility] (chief lumbar [place]. Provider : EST Pain Caterina complaint) regionFibromyalgia 1 [address] [facility], Pain in left John, Will J, [address] kneePain in right [place] 72 [address] John, kneePain in left is, [place], John, Medon, shoulderPain in [id number] [place], right hipChronic , [place]. s, MN, 979690945 migraine without tel:+ [phone] , [place] aura, intractable, 75357544 . tel: without status tel:+ [phone] migrainosusOsteoar 8412 345 thritisPain in thoracic spineAnxiety disorder, unspecifiedPain in left hipPostlaminectomy syndrome, not elsewhere classifiedRadiculo shane, lumbar regionOther spondylosis, cervical regionLong term (current) use of opiate analgesicEncounter for therapeutic drug level monitoring OFFICE VISIT, [facility] Back Pain Other spondylosis, [facility] Referring [facility] (chief lumbar [facility]. Provider: TELEMEDICINE Pain Caterina complaint) regionFibromyalgia 1 [address] [facility], Pain in left John, Will J, [address] kneePain in right [place] 72 [address] John, kneePain in left is, [place], John, Medon, shoulderPain in [id number] Augusta fischer [place], right hipChronic , [place]. s, MN, 460845546 migraine without tel:+ [phone] , [place] aura, intractable, 46014462 . tel: without status tel: [phone] migrainosusOsteoar 8412 345 thritisPain in thoracic spineAnxiety disorder, unspecifiedPain in left hipPostlaminectomy syndrome, not elsewhere classifiedRadiculo shane, lumbar regionOther spondylosis, cervical regionLong term (current) use of opiate analgesic OFFICE VISIT, [facility] Pain Other spondylosis, Kanu0 K [facility] Referring [facility] (chief lumbar [facility]. Provider: TELEMEDICINE Pain Medon complaint) regionFibromyalgia 1 [facility] [facility], Pain in left John, Will J, [address] kneePain in right [place] 72 [address] John, kneePain in left is, [place], John, Caterina, shoulderPain in 579607006 [place], right hipChronic , [place]. s, MN, 422138388 migraine without tel:+ [phone] , [place] aura, intractable, 48321955 . tel: without status tel: [phone] migrainosusOsteoar 8412 345 thritisPain in thoracic spineAnxiety disorder, unspecifiedPain in left hipPostlaminectomy syndrome, not elsewhere classifiedRadiculo shane, lumbar regionOther spondylosis, cervical regionLong term (current) use of opiate analgesic OFFICE VISIT, [facility] Other spondylosis, [facility] Referring [facility] (chief lumbar 5-202 [place]. Provider: TELEMEDICINE Pain Caterina complaint) regionFibromyalgia 1 [address] [facility], Pain in left John, Will J, [address] kneePain in right [place] [address] John, kneePain in left is, [place], John, Caterina, shoulderPain in 137422343 [place], right hipChronic , [place]. s, MN, 568218180 migraine without tel: [phone] , [place] aura, intractable, 99969398 . tel: without status tel: [phone] migrainosusOsteoar 8412 345 thritisPain in thoracic spineAnxiety disorder, unspecifiedPain in left hipPostlaminectomy syndrome, not elsewhere classifiedRadiculo shane, lumbar regionOther spondylosis, cervical regionLong term (current) use of opiate analgesic [facility] Other spondylosis, March- Mario Referring [facility] (chief lumbar 4-202 [place]. Provider: Pain Caterina complaint) regionFibromyalgia 1 [address] [facility], Pain in left John, Will J, [address] kneePain in right [place] [address] John, kneeChronic is, [place], John, Caterina, migraine without [id number] [place], aura, intractable, , [place]. s, [place] , 371645686 without status tel: [phone] , [place] migrainosusPain in 34079376 . tel: right hipPain in tel: [phone] left shoulderPain 62834 45 in right shoulderOsteoarthr itisPain in thoracic spineAnxiety disorder, unspecifiedPain in left hipPostlaminectomy syndrome, not elsewhere classifiedRadiculo shane, lumbar regionOther spondylosis, cervical regionLong term (current) use of opiate analgesic OFFICE VISIT, [facility] Pain Other spondylosis, Mar-2 K angas Referring [facility] (chief lumbar [place]. Provider: TELEMEDICINE Pain Caterina complaint) regionFibromyalgia 1 [address] [facility], Pain in left John, Will J, [address] kneePain in right [place] [address] John, kneeChronic is, [place], John, Medon, migraine without [id number] [place], aura, intractable, , [place]. s, [place] , 071752014 without status tel: [phone] , [place] migrainosusPain in 25428213 . tel: right hipPain in tel:2 [phone] left shoulderPain 61257 45 in right shoulderOsteoarthr itisPain in thoracic spineAnxiety disorder, unspecifiedPain in left hipPostlaminectomy syndrome, not elsewhere classifiedRadiculo shane, lumbar regionOther spondylosis, cervical regionLong term (current) use of opiate analgesic OFFICE VISIT, [facility] Pain in left Fe- Mario Referring [facility] (chief hipPostlaminectomy [place]. P rovider: TELEMEDICINE Pain Medon complaint) syndrome, not 1 7[address] [facility], elsewhere John, Endy J, [address] classifiedRadiculo [place] [address] John, shane, lumbar is, [place], John, Caterina, regionOther [id number] [place], spondylosis, , [place]. s, [place], 123700978 cervical tel: [phone] , [place] regionOther 88322302 . tel: spondylosis, tel: 2 [phone] lumbar 1338297 regionFibromyalgia Pain in left kneePain in right kneeChronic migraine without aura, intractable, without status migrainosusPain in right hipPain in left shoulderPain in right shoulderOsteoarthr itisPain in thoracic spineAnxiety disorder, unspecifiedLong term (current) use of opiate analgesic OFFICE VISIT, [facility] Pain in left Mario Referring [facility] (chief hipPostlaminectomy [place]. P rovider: TELEMEDICINE Pain Caterina complaint) syndrome, not 1 [address] [facility], elsewhere Endy Lopez J, [address] classifiedRadiculo [place] [address] John, shane, lumbar is, [place], John, Caterina, regionOther [id number] [place], spondylosis, , [place]. s, MN, 450980592 cervical tel:+ [phone] , [place] regionOther 15240063 . tel: spondylosis, tel: 2 [phone] lumbar 4364318 regionFibromyalgia Pain in left kneePain in right kneeChronic migraine without aura, intractable, without status migrainosusPain in right hipPain in left shoulderPain in right shoulderOsteoarthr itisPain in thoracic spineAnxiety disorder, unspecifiedLong term (current) use of opiate analgesic OFFICE VISIT, [facility] Pain in left Mario Referring [facility] (chief hipPostlaminectomy [place]. P rovider: TELEMEDICINE Pain Caterina complaint) syndrome, not 0 [address]235 [facility], elsewhere Endy Lopez J, [address] classifiedRadiculo [facility] [address] John, shane, lumbar is, [place], John, Medon, regionOther [id number] [place], spondylosis, , [place]. s, [place], 731232375 cervical tel: [phone] , [place] regionOther 13781970 . tel: spondylosis, tel: 2 [phone] lumbar 9883713 regionFibromyalgia Pain in left kneePain in right kneeChronic migraine without aura, intractable, without status migrainosusPain in right hipPain in left shoulderPain in right shoulderOsteoarthr itisPain in thoracic spineAnxiety disorder, unspecifiedLong term (current) use of opiate analgesic OFFICE VISIT, [facility] Pain Postlaminectomy [facility] Referring [facility] (chief syndrome, not [place]. Provid er: TELEMEDICINE Pain Caterina complaint) elsewhere 0 [address] [facility], classifiedRadiculo John Will J, [address] shane, lumbar [place] [address] [facility] John, regionOther is, [place], John, Medon, spondylosis, [id number] [place], cervical , [place]. s, [place], 471312447 regionOther tel:+ [phone] , [place] spondylosis, 80256274 . tel: lumbar tel:+ [phone] regionFibromyalgia 8412 345 Pain in left kneePain in right kneeChronic migraine without aura, intractable, without status migrainosusPain in left hipPain in right hipPain in left shoulderPain in right shoulderOsteoarthr itisPain in thoracic spineAnxiety disorder, unspecifiedLong term (current) use of opiate analgesic OFFICE/OUTPAT [facility] Pain Postlaminectomy Oct- Gonzalez as Referring IENT VISIT, [facility] (chief syndrome, not [place]. Pr ovider: EST Pain Caterina complaint) elsewhere 0 7235 [facility], classifiedRadiculo Endy Lopez J, [address] shane, lumbar [place] [address] [facility] John, regionOther is, [place], John, Caterina, spondylosis, [id number] [place], cervical , [place]. s, [place], 460104839 regionOther tel:+ [phone] , [place] spondylosis, 62837357 . tel: lumbar tel: [phone] regionFibromyalgia 8412 345 Pain in left kneePain in right kneeChronic migraine without aura, intractable, without status migrainosusPain in left hipPain in right hipPain in left shoulderPain in right shoulderOsteoarthr itisPain in thoracic spineAnxiety disorder, unspecifiedLong term (current) use of opiate analgesicEncounter for therapeutic drug level monitoring OFFICE VISIT, [facility] Back Pain Postlaminectomy Sep-2 Gonzalez as Referring EST [facility] (chief syndrome, not [place]. Provid er: TELEMEDICINE Pain Caterina complaint) elsewhere 0 7235 [facility], classifiedRadiculo John, Will J, [address] shane, lumbar [place] [address] John, regionOther is, [place], John, Caterina, spondylosis, [id number] [place], cervical , [place]. s, MN, 812433731 regionOther tel: [phone] , [place] spondylosis, 64996199 . tel: lumbar regionLong tel: [phone] term (current) use 8412 345 of opiate analgesicAnxiety disorder, unspecifiedFibromy algiaPain in left kneePain in right kneeChronic migraine without aura, intractable, without status migrainosusPain in left hipPain in right hipPain in left shoulderPain in right shoulderOsteoarthr itisPain in thoracic spine OFFICE VISIT, [facility] Back Pain Postlaminectomy Yeimy en Referring [facility] (chief syndrome, not Venu. Provid er: TELEMEDICINE Pain [place] complaint) elsewhere 0 [address] [facility] [address] Jermaine l J, [address] shane, lumbar 11 Umair [address] John, regionOther 100, John, Medon, spondylosis, [place], cervical e, [place], s, MN, 070155445 regionOther [id number] [phone] , [place] spondylosis, , [place]. . tel: lumbar regionLong tel: te l:+ [phone] term (current) use [id number] of opiate analgesicAnxiety disorder, unspecified [facility] Postlaminectomy RN RN. Refe [facility] syndrome, not [address] Prov ider: Pain Caterina elsewhere 0 [facility], classified [place] Will J, [address] is, [place], [address] John, [id number] John, Medon, , [place]. [place], tel: s, [place], [id number] , [place] . tel: tel: [phone] [facility] Postlaminectomy David Ref [facility] Surgery syndrome, not 4-202 Gi. Provider: Pain Center elsewhere 0 7235 [facility], classified JohnEndy J, [address] [place] [address] John, is, [place], Chandana Lopeza, [id number] [place], , [place]. s, [place], 585298420 tel: [phone] , [place] [id number] . tel: tel:+[phone] OFFICE VISIT, [facility] Postlaminectomy Kanga s Referring [facility] (chief syndrome, not [place]. Provider: TELEMEDICINE Pain complaint) elsewhere 0 7235 [facility], classifiedRadiculo JohnEndy J, [address] shane, lumbar [place] [address] John, regionOther is, [place], John, Medon, spondylosis, [id number] [place], cervical , [place]. [place], [place], [address]2379[address] regionOther tel: [phone] , [place] spondylosis, [id number] . tel: lumbar regionLong tel: [phone] term (current) use [id number] of opiate analgesicAnxiety disorder, unspecified [facility] Postlaminectomy Mario Refe [facility] syndrome, not [place]. Provid er: Pain Caterina elsewhere 0 7235 [facility], classified JohnEndy J, [address] [place] [address] John, is, [place], John Medon, [id number] [place], , [place]. [place], [place], 112130777 tel: [phone] , [place] [id number] . tel: tel:[phone] [facility] Postlaminectomy Kokayeff Ref [facility] Surgery syndrome, not Gi. Provider: Pain Center elsewhere 0 7235 [facility], classified Endy Lopez J, [address] [place] [address] John, is, [place], John, Caterina, [id number] [place], , [place]. [place], [place], 089[address]2237 tel: [phone] , [place] [id number] . tel: tel:[phone] OFFICE VISIT, [facility] Back Pain Postlaminectomy Michael s Referring [facility] (chief syndrome, not [place]. Provider: TELEMEDICINE Pain complaint) elsewhere 0 7235 [facility], classifiedRadiculo Endy Lopez J, [address] shane, lumbar [place] 7235 [facility] John, regionLong term is, [place], John, Medon, (current) use of [id number] [place], opiate , [place]. [place], [place], 096341530 analgesicOther tel: [phone] , [place] spondylosis, [id number] . tel: cervical tel: [phone] regionOther [id number] spondylosis, lumbar region [facility] No Information [facility] [place]. Pain Caterina 0 7235 [facility], John, 7235 [facility] [place], is, [place], Medon, [id number] [place], , [place]. 632[address]3739 tel: , [place] [id number] tel: [phone] OFFICE VISIT, [facility] Back Pain CervicalgiaPostlam K shlomo Referring [facility] (chief inectomy syndrome, [place]. P rovider: TELEMEDICINE Pain Medon complaint) not elsewhere 0 7235 [facility], classifiedRadiculo Endy Lopez J, [address] shane, lumbar [place] 7235 [facility] John, regionLong term is, [place], John, Medon, (current) use of [id number] [place], opiate analgesic , [place]. [place], [place], 447080163 tel: [phone] , [place] [id number] . tel: tel:[phone] Psych Dx Eval Petronila [facility] Pain disorder with Juliana e [facility] related Maikel Provider: Pain psychological 0 Peg. 7235 [facility], factorsBipolar Ohnh Will J, [address] disorder John, 7235 [facility] John, [place], Caterina, is, [place], [place], [id number] s, [place], [address] , [place]. [address] , [place] tel: . tel: [phone] tel: [phone] OFFICE VISIT, [facility] Back Pain Postlaminectomy Apr-2 Michael s Referring [facility] (chief syndrome, not [place]. Provider: TELEMEDICINE Pain complaint) elsewhere 0 7235 [facility], classifiedLong John Endy Jorge, [address] term (current) use [place] 7 [address] John, of opiate is, [place], John, Medon, analgesicRadiculop [id number] [place], athy, lumbar , [place]. [place], [place], 530435371 regionCervicalgia tel: [phone] , [place] [id number] . tel: tel: [phone] [facility] No Information Jan- [facility] Peter. Pain Medon 0 7235 [facility], John, [address] [place] John, is, [place], Medon, [id number] [place], , [place]. 664431080 tel: , [place] [id number] tel: [phone] OFFICE/OUTPAT [facility] Back Pain Postlaminectomy Jan- Gonzalez as Referring IENT VISIT, [facility] (chief syndrome, not [place]. Pr ovider: EST Pain Caterina complaint) elsewhere 0 7235 [facility], classifiedLong Endy Lopez, [address] term (current) use [place] 7 [address] John, of opiate is, [place], John, Medon, analgesicCervicalg [id number] [place], iaRadiculopathy, , [place]. [place], [place], 749513785 lumbar region tel: [phone] , [place] [id number] . tel: tel:[phone] [facility] Postlaminectomy Mar- Garcia Refe rring [facility] Surgery syndrome, not Viry. Provider: Pain Center elsewhere 0 7235 [facility], classified John, Will J, [address] [place] [address] John, is, [place], Caterina Lopez, [id number] [place], , [place]. [place], [place], 663558386 tel:+ [phone] , [place] [id number] . tel: tel:[phone] OFFICE/OUTPAT [facility] Back Pain Postlaminectomy Gonzalez as Referring IENT VISIT, [facility] (chief syndrome, not 8 [place]. Pr ovider: EST Pain Caterina complaint) elsewhere 0 7235 [facility], classifiedCervical John, Will J, [address] giaRadiculopathy, [place] 72 [address] John, lumbar regionLong is, [place], Caterina Lopez, term (current) use [id number] [place], of opiate , [place]. [place], [place], 887454896 analgesicCarrier tel: [phone] , [place] of Methicillin [id number] . tel: susceptible tel:2 [phone] Staphylococcus 7762138 aureusCarrier of Methicillin resistant Staph aureusMethicillin resis staph infct causing diseases classd elsMelissacounter for therapeutic drug level monitoring [facility] Postlaminectomy [facility] syndrome, not [place]. Pain Caterina elsewhere 0 7235 [facility], classified John, [address] [place] John, is, [place], Caterina, [id number] [place], , [place]. 118933208 tel:+ , US [id number] tel: [phone] OFFICE/OUTPAT [facility] Back Pain Radiculopathy, Kanga s Referring IENT VISIT, [facility] (chief lumbar [place]. Provider : EST Pain Medon complaint) regionPostlaminect 0 7235 [facility], marquis syndrome, not John, Will J , [address] elsewhere [place] [address] John, classifiedCervical is, [place], Caterina Lopez, giaLong term [id number] [place], (current) use of , [place]. [place], [place], 299490162 opiate analgesic tel: [phone] , [place] 45330046 . tel: tel:[phone] OFFICE/OUTPAT [facility] Back Pain Radiculopathy, Kanga s Referring IENT VISIT, [facility] (chief lumbar 7-201 [place]. Provider : EST Pain Medon complaint) regionCervicalgiaL 9 35 [address] [facility], beryl term (current) Endy Lopez J, [address] use of opiate [place] [address] John, analgesicPostlamin is, [place], John, Caterina, ectomy syndrome, [id number] [place], not elsewhere , [place]. [place], MN, 744187406 classified tel: [phone] , [place] [id number] . tel: tel: [phone] OFFICE/OUTPAT [facility] Back Pain Chronic pain Referring IENT VISIT, [facility] (chief syndromePostlamine 6-201 [place] . Provider: EST Pain Medon complaint) ctomy syndrome, 9 35 [address] [facility], not elsewhere nEdy Lopez J, [address] classifiedRadiculo [place] 7 [address] John, shane, lumbar is, [place], John, Medon, regionCervicalgiaL [id number] [place], beryl term (current) , [place]. [place], [place] , 554236424 use of opiate tel: [phone] , [place] analgesic 42031490 . 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 Provider: EST Pain Medon complaint) opiate 9 [facility], analgesicPostlamin JohnEndy J, [address] ectomy syndrome, [place] 723 5 [address] John, not elsewhere is, [place], John, Caterina, classifiedRadiculo [id number] [place], shane, lumbar , [place]. s, MN, 915272294 regionCervicalgia tel: [phone] , US 04430797 . tel: tel:[phone] OFFICE/OUTPAT [facility] Back Pain Postlaminectomy Carlos as Referring IENT VISIT, [facility] (chief syndrome, not 0-201 [place]. Pr ovider: EST Pain Medon complaint) elsewhere 9 7235 [facility], classifiedLow back John, Will J, [address] painCervicalgiaLon [place] 7 [address] John, g term (current) is, [place], John, Medon, use of opiate [id number] [place], analgesic , [place]. [place], [place], 589707166 tel:[phone] , [place] 09433952 . tel: tel:[phone] OFFICE/OUTPAT [facility] Back Pain Postlaminectomy Carlos as Referring IENT VISIT, [facility] (chief syndrome, not 0-201 [place]. Pr ovider: EST Pain Medon complaint) elsewhere 9 7235 [facility], classifiedLow back John, Will J, [address] painCervicalgiaLon [place] 7 [address] John, g term (current) is, [place], John, Medon, use of opiate [id number] [place], analgesic , [place]. [place], [place], 462752319 tel:[phone] , US 54115100 . tel: tel:[phone] OFFICE/OUTPAT [facility] Back Pain Postlaminectomy Carlos as Referring IENT VISIT, [facility] (chief syndrome, not 1-201 [place]. Pr ovider: EST Pain Medon complaint) elsewhere 9 7235 [facility], classifiedLow back John, Will J, [address] painCervicalgiaEnc [place] 7 [address] more [place] for is, [place], John, Medon, therapeutic drug [id number] [place], level , [place]. [place], [place], 260330007 monitoringLong tel: [phone] , [place] term (current) use 95255296 . tel: of opiate tel:2 [phone] analgesic [phone] OFFICE/OUTPAT [facility] Back Pain Postlaminectomy March- Gonzalez as Referring IENT VISIT, [facility] (chief syndrome, not 1-201 [place]. Pr ovider: EST Pain Caterina complaint) elsewhere 9 7235 [facility], classifiedLow back John, Will J, [address] painCervicalgiaLon [place] 7 [address] John, g term (current) is, [place], John, Caterina, use of opiate 174221420 [place], analgesic , [place]. [place], [place], 285213339 tel: [phone] , [place] 68769006 . tel: tel:2 [phone] OFFICE/OUTPAT [facility] Back Pain Postlaminectomy Feb-0 Garcia Referring IENT VISIT, [facility] (chief syndrome, not 2-201 Viry. Pr ovider: EST Pain Caterina complaint) elsewhere 9 7235 [facility], classifiedRadiculo John, Will J, [address] shane, lumbar [place] 7235 [address]ms John, regionCervicalgiaL is, [place], John, Medon, beryl term (current) [id number] [place], use of opiate , [place]. [place], [place], 593838092 analgesic tel:[phone] , [place] 92997738 . tel: tel:2 [phone] OFFICE/OUTPAT [facility] Back Pain Chronic pain Nov- Mario Referring IENT VISIT, [facility] (chief syndromeRadiculopa 3-201 [place] . Provider: EST Pain Medon complaint) thy, lumbar 9 7235 [facility], regionLow back John, Will J, [address] painLong term [place] 7235 [address] John, (current) use of is, [place], John, Medon, opiate analgesic 979354153 [place], , [place]. [place], [place], 404549671 tel: [phone] , [place] 38994470 . tel: tel:[phone] [facility] Postlaminectomy Nov- Mario Refe [facility] syndrome, not 3-201 [place]. Provid er: Pain Caterina elsewhere 9 7235 [facility], classified Endy Lopez, [address] [place] [address] John, is, [place], Caterina Lopez, [id number] [place], , [place]. [place], [place], 686618597 tel: [phone] , [place] 32960041 . tel: tel:[phone] OFFICE/OUTPAT [facility] Back Pain Radiculopathy, Kanga s Referring IENT VISIT, [facility] (chief lumbar regionLow [place]. Provider: EST Pain Caterina complaint) back painLong term 8 7235 [facility], (current) use of Endy Lopez, [address] opiate analgesic [place] 7[address] John, is, [place], Caterina Lopez, [id number] [place], , [place]. [place], [place], 478795475 tel: [phone] , [place] 49888724 . tel: tel:[phone] [facility] Postlaminectomy Sep- Mario Refe [facility] syndrome, not 1-201 [place]. Provid er: Pain Medon elsewhere 8 7235 [facility], classified Endy Lopez, [address] [place] [address] John, is, [place], Caterina Lopez, 741391968 [place], , [place]. [place], [place], 378770174 tel: [phone] , US 68029189 . tel: tel:[phone] [facility] Postlaminectomy Aug- Garcia Refe [facility] syndrome, not 5-201 Viry. Provider: Pain Center elsewhere 8 7235 [facility], classified Endy Lopez, [address] [place] [address] John, is, [place], Caterina Lopez, [id number] [place], , [place]. [place], [place], 973746199 tel: [phone] , US 70042960 . tel: tel: [phone] OFFICE/OUTPAT [facility] Back Pain Postlaminectomy Oct-2 Gonzalez as Referring IENT VISIT, [facility] (chief syndrome, not 2-201 [place]. Pr ovider: EST Pain Medon complaint) elsewhere 8 7235 [facility], classifiedRadiculo Endy Lopez, 7235 [facility] shane, lumbar [place] [address] John, regionLow back is, [place], John, Caterina, pain [id number] [place], , [place]. [place], [place], 936618641 tel: [phone] , [place] 09890051 . tel: tel: [phone] [facility] Postlaminectomy Oct-0 Mario Refe [facility] syndrome, not 1-201 [place]. Provid er: Pain Caterina elsewhere 8 7235 [facility], classifiedLow back Endy Lopez J, [address] pain [place] 7235 [facility] John, is, [place], Chandana Lopeza, [id number] [place], , [place]. [place], [place], 275679084 tel: [phone] , [place] 76972591 . tel: tel: [phone] [facility] Postlaminectomy Sep-2 Garcia Refe [facility] syndrome, not 7-201 Viry. Provider: Pain Center elsewhere 8 7235 [facility], classified John Will J, [address] [place] 7235 [facility] John, is, [place], Chandana Lopeza, [id number] [place], , [place], [place], 053931289 tel: [phone] , [place] 40805914 . tel: tel:[phone] OFFICE/OUTPAT [facility] Back Pain Chronic pain Sep-1 Mario Referring IENT VISIT, [facility] (chief syndromePostlamine 9-201 [place] . Provider: EST Pain Medon complaint) ctomy syndrome, 8 [address] [facility], not elsewhere Endy Lopez, [address] classifiedRadiculo [place] 7 [address] John, shane, lumbar is, [place], John, Caterina, regionLow back [id number] [place], pain , [place]. [place], [place], 386864903 tel:+ [phone] , [place] 72087346 . tel: tel:[phone] OFFICE/OUTPAT [facility] Back Pain Chronic pain Sep-0 Mario Referring IENT VISIT, [facility] (chief syndromeCervicalgi 5- [place] . Provider: EST Pain Caterina complaint) aPostlaminectomy 8 [address] [facility], syndrome, not Endy Lopez, [address] elsewhere [place] [address] John, classifiedLow back is, [place], John, Caterina, painRadiculopathy, 998295851 [place], lumbar region , [place]. [place], [place], 177691017 tel: [phone] , [place] 72178105 . tel: tel:[phone] OFFICE/OUTPAT [facility] Back Pain Postlaminectomy Aug-0 Gonzalez as Referring IENT VISIT, [facility] (chief syndrome, not 6- [place]. Pr ovider: EST Pain Medon complaint) elsewhere 8 [address] [facility], classifiedChronic Endy Lopez , [address] pain [place] [address] John, syndromeCervicalgi is, [place], John, Medon, aLow back pain 647250412 [place], , [place], [place], 900281912 tel: [phone] , US 40455028 . tel: tel:[phone] OFFICE/OUTPAT [facility] Back Pain Chronic pain Kanu-0 Mario Referring IENT VISIT, [facility] (chief syndromeCervicalgi 6-201 [place] . Provider: EST Pain Medon complaint) aLow back pain 8 [address] [facility], John, Will J, [address] [place] [address] John, is, [place], John, Medon, [id number] [place], , [place]. [place], [place], 055361565 tel: [phone] , [place] 60867426 . tel: tel: [phone] OFFICE/OUTPAT [facility] Back Pain CervicalgiaChronic Apr-1 K angas Referring IENT VISIT, [facility] (chief pain syndromeLow 3-201 [place]. Provider: EST Pain Medon complaint) back painLumbago 8 7235 [facility], with sciatica, John, Will J, [address] left [place] [address] John, sidePostlaminectom is, [place], Caterina Lopez, y syndrome, not [id number] [place], elsewhere , [place]. [place], [place], 691774428 classifiedLong tel:43 , [place] term (current) use 62446794 . tel: of opiate tel: [phone] analgesic [phone] OFFICE/OUTPAT [facility] Back Pain CervicalgiaChronic Apr-0 K angas Referring IENT VISIT, [facility] (chief pain syndromeLow 6-201 [place]. Provider: EST Pain Caterina complaint) back 8 7235 [facility], painPostlaminectom Endy Lopez J, [address] y syndrome, not [place] [address] John, elsewhere is, MNJohn [place], classified [id number] [place], , [place]. [place], [place], 204225157 tel:[phone] , US 53743972 . tel: tel: [phone] OFFICE/OUTPAT [facility] Back Pain CervicalgiaChronic Feb-0 K angas Referring IENT VISIT, [facility] (chief pain syndromeLow 6-201 [place]. Provider: EST Pain Medon complaint) back 8 7235 [facility], painPostlaminectom Endy Lopez J, [address] y syndrome, not [place] [address] John, elsewhere is, [place], John, Medon, classified [id number] [place], , [place]. [place], [place], 859042786 tel: [phone] , [place] 38803732 . tel: tel: [phone] OFFICE/OUTPAT [facility] Back Pain CervicalgiaChronic K shlomo Referring IENT VISIT, [facility] (chief pain syndromeLow 8201 [place]. Provider: EST Pain Medon complaint) back 7 7235 [facility], painPostlaminectom John, Will J, [address] y syndrome, not [place] [address] John, elsewhere is, [place], John, Medon, classified [id number] [place], , [place]. [place], [place], 806272963 tel:[phone] , [place] 44312195 . tel: tel: [phone] OFFICE/OUTPAT [facility] Back Pain CervicalgiaLow Kangiqra s Referring IENT VISIT, [facility] (chief back 0-201 [place]. Provider : EST Pain Medon complaint) painPostlaminectom 7 7235 [facility], y syndrome, not John, Will J, [address] elsewhere [place] [address] John, classified is, [place], John, Caterina, [id number] [place], , [place]. [place], [place], 997232839 tel: [phone] , [place] 83638267 . tel: tel: [phone] OFFICE/OUTPAT [facility] Back Pain Postlaminectomy Gonzalez as Referring IENT VISIT, [facility] (chief syndrome, not 9201 [place]. Pr ovider: EST Pain Caterina complaint) elsewhere 7 7235 [facility], classifiedLow back John, Will J, [address] painCervicalgia [place] [address] John, is, [place], John, Medon, [id number] [place], , [place]. [place], [place], 940416300 tel: [phone] , US [id number] . tel: tel: [phone] OFFICE/OUTPAT [facility] Back Pain Low back May- Mario Ref erring IENT VISIT, [facility] (chief painCervicalgiaChr [place] . Provider: EST Pain Medon complaint) onic pain 7 7235 [facility], syndromePostlamine John, Endy J, [address] ctomy syndrome, [place] [address] John, not elsewhere is, [place], Caterina Lopez, classified [id number] [place], , [place], [place], 852387269 tel: [phone] , US 66085530 . tel: tel: [phone] OFFICE/OUTPAT [facility] Pain Low back March-3 Mario Ref erring IENT VISIT, [facility] (chief painCervicalgiaChr [place] . Provider: EST Pain Medon complaint) onic pain 7 7235 [facility], syndromePostlamine Endy Lopez J, [address] ctomy syndrome, [place] [address] John, not elsewhere is, MNJohn [place], classified [id number] [place], , [place]. [place], [place], 525743900 tel: [phone] , US 84036727 . tel: tel: [phone] OFFICE/OUTPAT [facility] Back Pain Low back May-0 Mario Ref erring IENT VISIT, [facility] (chief painCervicalgiaChr [place] . Provider: EST Pain Caterina complaint) onic pain syndrome 7 7235 [facility], Endy Lopez J, [address] [place] 7235 [facility] John, is, [place], Caterina Lopez, [id number] [place], , [place]. [place], [place], 370343396 tel: [phone] , [place] 53931372 . tel: tel: [phone] OFFICE/OUTPAT [facility] Back Pain CervicalgiaChronic Apr-0 K angas Referring IENT VISIT, [facility] (chief pain syndromeLow [place]. Provider: EST Pain Caterina complaint) back 7 7235 [facility], painPostlaminectom John, Endy J, [address] y syndrome, not [place] [address] John, elsewhere is, [place], Caterina Lopez, classified [id number] [place], , [place], [place], 672657106 tel:+ [phone] , [place] 47606350 . tel: tel:[phone] OFFICE/OUTPAT [facility] Back Pain Low back Jan- Mario Ref erring IENT VISIT, [facility] (chief painCervicalgiaChr [place] . Provider: EST Pain Medon complaint) onic pain 7 7235 [facility], syndromePostlamine John, Endy J, [address] ctomy syndrome, [place] [address] John, not elsewhere is, MNJohn [place], classified [id number] [place], , [place]. [place], [place], 258293135 tel: [phone] , [place] 11058362 . tel: tel:[phone] OFFICE/OUTPAT [facility] Back Pain CervicalgiaLow Kanga s Referring IENT VISIT, [facility] (chief back painChronic [place]. Provider: EST Pain Caterina complaint) pain syndrome 7 7235 [facility], Endy Lopez J, [address] [place] [address] John, is, [place], Caterina Lopez, [id number] [place], , [place], [place], 635379869 tel: [phone] , [place] 62428741 . tel: tel:[phone] OFFICE/OUTPAT [facility] Back Pain Low back Mario Ref erring IENT VISIT, [facility] (chief painCervicalgiaChr [place] . Provider: EST Pain Caterina complaint) onic pain syndrome 7 7235 [facility], John Will J, [address] [place] [address] John, is, [place], John, Medon, [id number] [place], , [place]. [place], [place], 195392449 tel:[phone] , [place] [id number] . tel: tel: [phone] OFFICE/OUTPAT [facility] Back Pain Low back Dec-0 Mario Ref erring IENT VISIT, [facility] (chief painCervicalgiaPos 2 [place] . Provider: EST Pain Medon complaint) [facility]laminectomy 6 [facility] syndrome, not John, Will J, [address] elsewhere [place] [address] John, classifiedChronic is, [place], John, Caterina, pain syndrome [id number] Janae weiner [place], , [place]. [place], [place], 927502809 tel:[phone] , [place] [id number] . tel: tel: [phone] OFFICE/OUTPAT [facility] Back Pain Low back Nov-0 Mario Ref erring IENT VISIT, [facility] (chief painCervicalgiaPos [place] . Provider: EST Pain Caterina complaint) [facility]laminectomy 6 [facility], syndrome, not John, Will J, [address] elsewhere [place] [address] John, classified is, [place], John, Medon, [id number] [place], , [place], [place], 686199111 tel:[phone] , [place] [id number] . tel: tel: [phone] OFFICE/OUTPAT [facility] Back Pain Lumbago with Aug- Van Referring IENT VISIT, [facility] (chief sciatica, left 4-201 [place] Provider: EST Pain Caterina complaint) sideLong term 6 Kera. Maple [facility], (current) use of [address] Will J, [address] opiate John, [address] John, analgesicCervicalg [place] Kal[place] e, [place], [place], [place], [id number] [place], [place], [id number] , [place]. [phone] , [place] tel: . tel: [phone] tel: [phone] OFFICE/OUTPAT [facility] Back Pain CervicalgiaLow Kanga s Referring IENT VISIT, [facility] (chief back Rosetta. Provider : EST Pain Medon complaint) painPostlaminectom 6 [facility] [facility], y syndrome, not John, Will J, [address] elsewhere [place] [address] John, classified [place], [place], John Medon, [id number] [place], , [place]. [place], [place], [id number] tel: [phone] , [place] [id number] . tel: tel: [phone] OFFICE/OUTPAT [facility] Back Pain Low back Mario Ref erring IENT VISIT, [facility] (chief painCervicalgiaPos Rosetta . Provider: EST Pain Caterina complaint) tlaminectomy 6 7235 [facility], syndrome, not John, Will J, [address] elsewhere [place] [address] John, classified [place], [place], [place] Caterina, [id number] [place], , [place]. [place], [place], [id number] tel: [phone] , [place] [id number] . tel: tel: [phone] OFFICE/OUTPAT [facility] Back Pain CervicalgiaLow Kanga s Referring IENT VISIT, [facility] (chief back painLumbago Rosetta. Provider: EST Pain Medon complaint) with sciatica, 6 7235 [facility], left side John, Will J, [address] [place] [address] John, [place], [place], John, [place], [id number] [place], , [place]. [place], [place], [id number] tel: [phone] , [place] [id number] . tel: tel: [phone] OFFICE/OUTPAT [facility] Back Pain Low back Mario Ref erring IENT VISIT, [facility] (chief painCervicalgia Rosetta. Provider: EST Pain Caterina complaint) 6 7[address] [facility], John, Endy J, [address] [place] [address] John, [place], [place], Caterina Lopez, [id number] [place], , [place]. [place], [place], [id number] tel:[phone] , [place] [id number] . tel: tel:[phone] OFFICE/OUTPAT [facility] Back Pain CervicalgiaLow March- Kanga s Referring IENT VISIT, [facility] (chief back painLumbago 0- Rosetta. Provider: EST Pain Medon complaint) with sciatica, 6 [facility], left John, Endy Patel, [address] sidePostlaminectom [place] [address] John, y syndrome, not is, [place], John, Caterina, elsewhere [id number] [place], classified , [place]. [place], [place], [id number] tel: [phone] , [place] [id number] . tel: tel:[phone] OFFICE/OUTPAT [facility] Back Pain Low back Apr-2 Mario Ref erring IENT VISIT, [facility] (chief painCervicalgiaLum Rosetta . Provider: EST Pain Medon complaint) bago [facility] 6 [facility], [facility]atic[facility], left Endy Lopez, [address] side [place] [address] John, [place], [place], Caterina Lopez, [id number] [place], , [place]. [place], [place], [id number] tel: [phone] , [place] [id number] . tel: tel:[phone] OFFICE/OUTPAT [facility] Back Pain Low back Apr-0 Mario Ref erring IENT VISIT, [facility] (chief painCervicalgia 6 Rosetta. Provider: EST Pain Medon complaint) 6 [facility], Endy Lopez, [address] [place] [address] John, [place], [place], Caterina Lopez, [id number] [place], , [place]. [place], [place], [id number] tel: [phone] , [place] [id number] . tel: tel: [phone] OFFICE/OUTPAT [facility] Back Pain Low back Mar-2 Mario Ref erring IENT VISIT, [facility] (chief painCervicalgiaLum 5-201 [place] . Provider: NEW Pain Medon complaint) bago with 6 [address] [facility], sciatica, left John, Will J, [address] sideLong term [place] [address] John, (current) use of [place], [place], John, Caterina, opiate [id number] [place], analgesicPostlamin , [place]. [place], [place] , [id number] ectomy syndrome, tel: [phone] , [place] not elsewhere [id number] . tel: classified tel: [phone] Family History Family Member Type Diagnosis Age At Onset Mother Problem (finding) back pain Payers Payer name Insurance type Covered green party ID Authorization(s ) Medicare MB [id number] [employer] [facility] [id number] Social History Type Description Quantity Date Captured [...] Of Treatment Date Type Action Status Goal Zoster vaccine (1st). Due on due Goal Review Allergy List. Due on due Goal DEFECTIVE CIGARETTE SLITTER Scanned. Due on due Goal Unhealthy drug use screening. e on due Goal PHQ-9. Due on due Goal FIT. Due on due Goal Lipid panel. Due on due Goal Update Social History. Due on Goal Tobacco Use. Due on due Goal Medication Reconciliation. Due o n due Goal CT-Colonography. Due on due Goal OARS. Due on due Goal UDT. Due on due Goal CARPET YARN WINDER OPERATOR Paperwork. Due on due Goal Weight. Due on due Goal FIT-DNA. Due on due Goal HPV. Due on due Goal Order Annual PT. Due on due Goal Height. Due on due Goal AST (SGOT). Due on d ue Goal ALT (SGPT). Due on d ue Goal Hepatitis C screening. Due on Goal Creatinine. Due on d ue Goal AST (SGOT). Due on d ue Goal ALT (SGPT). Due on d ue Goal Creatinine. Due on d ue Goal Order Annual PT. Due on due Goal Tobacco Use. Due on due Goal FIT. Due on due Goal DEFECTIVE CIGARETTE SLITTER Scanned. Due on due Goal CARPET YARN WINDER OPERATOR Paperwork. Due on due Goal Weight. Due [...] due Goal PHQ-9. Due on due Goal UDT. Due on due Goal AST (SGOT). Due on d ue Goal Tobacco Use. Due on due Goal OARS. Due on due Goal Lipid panel. Due on due Goal Order Annual PT. Due on due Goal CARPET YARN WINDER OPERATOR Paperwork. Due on due Goal DEFECTIVE CIGARETTE SLITTER Scanned. Due on due Goal Height. Due on due Goal Unhealthy drug use screening. on due Goal Review Allergy List. Due on due Goal Creatinine. Due on d ue Goal ALT (SGPT). Due on d ue Goal HPV. Due on due Goal Update Social History. Due on Goal Weight. Due on due Goal Hepatitis C screening. Due on Goal Medication Reconciliation. Due o n due Goal PHQ-9. Due on due Goal CT-Colonography. Due on due Goal FIT-DNA. Due on due Goal FIT. Due on due Goal Zoster vaccine (1st). Due on due Goal ALT (SGPT). Due on d ue Goal Height. Due on due Goal Update Social History. Due on Goal Review Allergy List. Due on due Goal Tobacco Use. Due on due Goal UDT. Due on due Goal HPV. Due on due Goal AST (SGOT). Due on d ue Goal DEFECTIVE CIGARETTE SLITTER Scanned. Due on due Goal Unhealthy drug use screening. Du on due Goal Order Annual PT. Due on due Goal OARS. Due on due Goal Medication Reconciliation. Due o n due Goal Creatinine. Due on d ue Goal Weight. Due on due Goal CT-Colonography. Due on due Goal FIT-DNA. Due on due Goal PHQ-9. Due on due Goal FIT. Due on due Goal CARPET YARN WINDER OPERATOR Paperwork. Due on due Goal Hepatitis C [...] due Goal UDT. Due on due Goal DEFECTIVE CIGARETTE SLITTER Scanned. Due on due Goal CARPET YARN WINDER OPERATOR Paperwork. Due on due Goal ALT (SGPT). [...] Medication Reconciliation. Due o n due Goal DEFECTIVE CIGARETTE SLITTER Scanned. Due on due Goal Tobacco Use. Due on due Goal Update Social History. Due on du e Goal CT-Colonography. Due on due Goal OARS. Due on due Goal Zoster vaccine (). Due on due Goal AST (SGOT). Due on d ue Goal Review Allergy List. Due on due Goal FIT. Due on due Goal Height. Due on due Goal Hepatitis C screening. Due on Goal Weight. Due on due Goal UDT. Due on due Goal PHQ-9. Due on due Goal Order Annual PT. Due on due Goal HPV. Due on due Goal CARPET YARN WINDER OPERATOR Paperwork. Due on due Goal ALT (SGPT). Due on d ue Goal Unhealthy drug use screening. on due Goal FIT-DNA. Due on due Goal Creatinine. Due on d ue Goal Lipid panel. Due on due Goal OARS. Due on [...] Goal Update Social History. Due on Goal CARPET YARN WINDER OPERATOR Paperwork. Due on due Goal DEFECTIVE CIGARETTE SLITTER Scanned. Due on due Goal AST (SGOT). Due on d ue Goal Review Allergy List. Due on due Goal PHQ-9. Due on due Goal UDT. Due on due Goal DEFECTIVE CIGARETTE SLITTER Scanned. Due on due Goal CARPET YARN WINDER OPERATOR Paperwork. Due on due Goal Update Social History. Due on e Goal AST (SGOT). Due on d ue Goal OARS. Due on due Goal Height. Due on due Goal ALT (SGPT). Due on d ue Goal Order Annual PT. Due on due Goal Medication Reconciliation. Due o n due Goal Tobacco Use. Due on due Goal Weight. Due on due Goal Medication Reconciliation. Due o n due Goal PHQ-9. Due on due Goal CARPET YARN WINDER OPERATOR Paperwork. Due on due Goal UDT. Due on due Goal Order Annual PT. Due on due Goal Height. Due on due Goal ALT (SGPT). Due on d ue Goal AST (SGOT). Due on d ue Goal DEFECTIVE CIGARETTE SLITTER Scanned. Due on due Goal OARS. Due [...] ue Goal UDT. Due on due Goal CARPET YARN WINDER OPERATOR Paperwork. Due on due Goal Order Annual PT. Due on 022 due Goal OARS. Due on due Goal DEFECTIVE CIGARETTE SLITTER Scanned. Due on due Goal Tobacco Use. Due on due Goal Medication Reconciliation. Due o n due Goal OARS. Due on due Goal DEFECTIVE CIGARETTE SLITTER Scanned. Due on due Goal Update Social History. Due on Goal AST (SGOT). Due on d ue Goal Height. Due on due Goal Weight. Due on due Goal Order Annual PT. Due on due Goal ALT (SGPT). Due on d ue Goal PHQ-9. Due on due Goal UDT. Due on due Goal Review Allergy List. Due on due Goal CARPET YARN WINDER OPERATOR Paperwork. Due on due Goal CARPET YARN WINDER OPERATOR Paperwork. Due on due Goal PHQ-9. Due on due Goal Weight. Due on due Goal Height. Due on due Goal OARS. Due on due Goal Medication Reconciliation. Due o n due Goal Update Social History. Due on Goal DEFECTIVE CIGARETTE SLITTER Scanned. Due on due Goal Order Annual PT. Due on due Goal Tobacco Use. Due on due Goal UDT. Due on due Goal ALT (SGPT). Due on d ue Goal Review Allergy List. Due on due Goal AST (SGOT). Due on d ue Goal CARPET YARN WINDER OPERATOR Paperwork. Due on due Goal DEFECTIVE CIGARETTE SLITTER Scanned. Due on due Goal PHQ-9. Due [...] Goal Tobacco Use. Due on due Goal DEFECTIVE CIGARETTE SLITTER Scanned. Due on due Goal CARPET YARN WINDER OPERATOR Paperwork. Due on due Goal Weight. Due on due Goal OARS. Due on due Goal Order Annual PT. Due on due Goal ALT (SGPT). Due on d ue Goal AST (SGOT). Due on d ue Goal UDT. Due on due Goal Review Allergy List. Due on due Goal UDT. Due on due Goal Weight. Due on due Goal ALT (SGPT). Due on d ue Goal PHQ-9. Due on due Goal Height. Due on due Goal CARPET YARN WINDER OPERATOR Paperwork. Due on due Goal Update Social History. Due on Goal OARS. Due on due Goal AST (SGOT). Due on d ue Goal DEFECTIVE CIGARETTE SLITTER Scanned. Due on due Goal Order Annual [...] Goal Update Social History. Due on Goal DEFECTIVE CIGARETTE SLITTER Scanned. Due on due Goal PHQ-9. Due on due Goal OARS. Due on due Goal Tobacco Use. Due on due Goal CARPET YARN WINDER OPERATOR Paperwork. Due on due Goal Height. Due on due Goal Order Annual PT. Due on due Goal Tobacco cessation counseling com pleted Goal Tobacco Use. Due on due Goal PHQ-9. Due on due Goal ALT (SGPT). Due on d ue Goal AST (SGOT). Due on d ue Goal Order Annual PT. Due on due Goal DEFECTIVE CIGARETTE SLITTER Scanned. Due on due Goal Update Social History. Due on Goal Review Allergy List. Due on due Goal CARPET YARN WINDER OPERATOR Paperwork. Due on due Goal OARS. Due on due Goal Medication Reconciliation. Due o n due Goal Weight. Due on due Goal UDT. Due on due Goal Height. Due on due Goal UDT. Due on due Goal Medication Reconciliation. Due o n due Goal CARPET YARN WINDER OPERATOR Paperwork. Due on due Goal Update Social [...] due Goal Height. Due on due Goal DEFECTIVE CIGARETTE SLITTER Scanned. Due on due Goal AST (SGOT). Due on d ue Goal DEFECTIVE CIGARETTE SLITTER Scanned. Due on due Goal CARPET YARN WINDER OPERATOR Paperwork. Due on due Goal ALT (SGPT). [...] due Goal PHQ-9. Due on due Goal DEFECTIVE CIGARETTE SLITTER Scanned. Due on due Goal Tobacco Use. Due on due Goal Order Annual PT. Due on 021 due Goal UDT. Due on due Goal CARPET YARN WINDER OPERATOR Paperwork. Due on due Goal ALT (SGPT). [...] ANALYSIS , URINE, WITH Ordered MED REPORT ([id number]), Ordered on: Future Order: Lab Order Drug Test Def 22+ Classe s ([id number]), Ordered Ordered on: Future Order: Lab Order Drug Test Def 22+ Classe s ([id number]), Ordered Ordered on: Future Order: Lab Order COMPLIANCE DRUG ANALYSIS , URINE, WITH Ordered MED REPORT ([id number]), Ordered on: Future Order: Lab Order MRSA/MSSA Screening ([id number]), Ordered Ordered on: Future Order: Lab Order COMPLIANCE DRUG ANALYSIS , URINE, WITH Ordered MED REPORT ([id number]), Ordered on: History Of Present Illness Encounter [...] her L sydni ulder on 12/30/21 with [facility] in order for infection to clear. Additional [...] h er L shoulder on 12/30/21 with [facility] in order for in fection to clear. [...] to her Yomi mann on 12/30/21 with [facility] in order for infection to clear. Additional [...] her L sydni ulder on 12/30/21 with [facility] in order for infection to clear. Additional [...] or hardware removal surgery on 12/30/21 with [facility] in order for infection to clear. Will [...] is scheduled for hardware removal surgery in [place] with [facility] in order for infection to ca ar. [...] for hardware removal surgery in December with [facility] in order for in fection to clear. [...] eather. Ongoing relief with SCS and medical beevrly abis.No further questions or concerns. Back Pain Duration: chronic. T he problem is stable. It occurs persistently. The patient describes the pain as an ache, bur cam, sharp and shooting. Symptoms are aggrava mary by walking. Symptoms are relieved by heat, ic e and pain meds/drugs. Back Pain Duration: chronic. T he problem [...] L side weakness -- was treated by [facility] ic. Was put on Warfarin, unsure if [...] ed in a program through [facility]. She also not es of increasing [...] not interested in any procedures at the [facility]. PT-SABAS-RF-N/ASCS-Cur evelinkarolinay has Meds: Opioids-Currently ta kes [...] to refill her medications. She will call [facility] if sh e has any questions [...] orders. No other concerns today Back Pain (comments) [...] mo re headaches. She was seen by [facility] who told her she has a screw loose. She was referred to Dr. Gonzalez at [facility]. She has not heard from t [...] tomorrow. She said s he will get [place] for 4-5 days maximum followi ng the [...] and states it aggrevated her pain. Medical [facility] continues to be effective for reduci ng her pain. She will be completing diagnosti c injections today through [facility]. No other concerns [...] #1 Oxycodone, surplus. She was hospitalized in [place] about a w [place] ago for her back pain. She is having an epd iural steroid injection done at [facility] tomorrow. She isn't sure how well the [...] her pain has been worse lately. The cristel brewer states the current medication regimen c ontinues to be effective for reducing pain. She h as not followed up with her surgeon since her la st appointment. No other concerns today. Back Pain (comments) [...] neck surgery. ENT referred her to an code enforcement officer for additional evaluation. No other concerns today. [...] Patient completed right shou lder imaging at [facility] and reports a tear. She plans to [...] will be undergoing a Cervical Fusion with [facility]. [facility]. She stat [...] a cervical fusion in the near f [facility]. She has noticed increased restlessne ss [...] by Dr. Amna Fletcher from [facility]. Angie is here today for her initial consult regarding her back, neck and knee pain which bega n years ago and [facility]. She had a lumbar fusion in the past. She also has underwent several neck surgeri es including a cervical fusion and plans to have additional surgery done by Dr. Rodriguez at [facility]. She also has a history [...] regul christian. She recently moved back to [place] from [place]. No ot her concerns today. Medical records:Dr. Rodriguez at [facility] - neck surgeon Dr. Amna Fletcher a t [facility] - PCP recordsPast treatmen t:SABAS - no [...] Osteoarthritis impression History of widespread osteoarthritis. Au impression History of bilateral shoulder pain. Inje ctions through [facility] without significant relief. L shoulder r eversal surgery completed 10/27/2020. Additional hardwar e removal surgery through [facility] completed 12/30/21. Another s urgery to replace hardware completed 02/26/22 assessment Pain in left shoulder assessment Pain in left hip impression History of bilateral hip pain. Also wors e. No past relief with injections through [facility] pain reduced wi th current pain medication regimen. assessment Pain in right hip impression History of bilateral hip pain. Also wors e impression Chronic bilateral knee pain currently wo rse. Pt planning to follow with ortho regarding this. H/o bi lateral TKA assessment Pain in left knee assessment Pain in right knee impression Chronic bilateral knee pain currently wo rse. impression Neck pain also worse. Hx of cervical fus ion. Degenerative changes noted on 2019 MRI. No relief wit h injections in the past. Failed cervical RF.Neck pain reduc ed with HEP and current pain medication regimen. assessment Other spondylosis, cervical region assessment Other spondylosis, lumbar region 2021 impression Continued back/leg pain exacerbation wit h increased activity. No relief with injections in the past. F [place]in[place] lumbar RF.Lumbar pain reduced with current pain medicatio n regimen and home exercise program. impression Back pain with radicular sx noted down B LEs has been worse. assessment Radiculopathy, lumbar region assessment Pain in thoracic spine impression History of thoracic pain. impression History of fibromyalgia. Worse d/t weath er assessment Fibromyalgia assessment Postlaminectomy syndrome, not elsewhere classified Aug-30-2022 [...] SCS implant on 07/11. Improvement with reprogramming impression Current treatment plan increases the pat iekole's daily activity level and quality of life. Encouraged pa daniella to participate in alternative therapies, conservative m easures, and follow a healthy lifestyle.Patient has been manag ing medications well with no signs of abuse or oversedation, and is appropriate to continue with opioid use. Last UDT resul ts reviewed and appropriate[facility] oxy codone [facility] [...] enh anced the patient's quality of life. 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
--- OUTSIDE RECORDS SUMMARY | 2022-08-14 17:40 | XMS_ITS | Continuity of Care Document ---
:1965 Author Organization [facility] Address [address] [address] [place] [address] Phone Care Team Providers Name Role Phone Nilay Perry MD Unavailable Unavailable Advance Directives Directive Yes / No Effective Date File Name No Information Encounters Encounter Practice Location Reason(s) Diagnoses Date Provider Provide rs Description For Visit Copied on Encounter [facility] No [place] FAULKNER Referring [facility] Nilay. Provider: Health MD, Endoscopy [address] [facility] [address], Fredis DILLON MD, [address] [facility] [address], [place], [place], [facility] [address], [id number], [place], [place], [facility] [id number], [place], [address]. tel:[phone] . tel:[phone] tel:[phone] Family History Family Member Type Diagnosis Age At Onset No Information Payers Payer name Insurance type Covered green party ID Authorization(s ) [place] [employer] [id number] Social History Type Description Quantity Date Captured [...]
--- OUTSIDE RECORDS SUMMARY | 2022-08-14 17:40 | XMS_ITS | Encounter Summary ---
:1965 Author Organization [place] Address [facility] [place] [address] Care Team Providers Name Role Phone Clinic, [facility] Primary Care Provide r Reason for Visit Reason Comments Consult pt here with her neighbor Arin calderon, Encounter Details Date Type Department Care Team Description 05/14/2021 Office Visit - [facility] Mor Bautista Acute he matogenous [facility] Sheldon Patel MD osteomyelitis of right [address] [place] [address] [address] ([address]) [address] [facility] [id number] [place], [place] [phone] [id number] Social History Tobacco Use Types Packs/Day Years [...] disease history: Reviewed in the notes from [facility] Medications: Reviewed prior to admission meds as [...] ?? GRAM STAIN? Gram stain performed by [place], [place] ?? Specimen Collected on Tissue - [...] this duration if possible. My cell is [phone]. I wrote for 90 days and warned pt about sunburn risk. She has hx of skin cancer. 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
--- OUTSIDE RECORDS SUMMARY | 2022-08-14 17:40 | XMS_ITS | Clinical Summary ---
:1965 Author Organization [place] Address [facility] [place] [address] Care Team Providers Name Role Phone Clinic, [facility] Primary Care Provide r Allergies Active Allergy [...] breath / dyspnea or wheezing naloxone (NARCAN) [place] 4 mg into 0 Active nasal spray [...] (Takes 2 x 5000 unit tablet = 57298 unit dose) Esomeprazole Magnesium Take 40 mg [...] CDT Respiratory Rate 16 10/14/2017 4:28 PM CUSTOMS OFFICER Oxygen Saturation 98% 10/14/2017 4:28 PM CUSTOMS OFFICER Inhaled Oxygen Concentration - - Weight 74.8 [...] this topic Medical Devices Implanted Type Area Door Glass Installer Device Shelf Model / Identifier Expiration Serial / Date Lot Device Tvt Obturator Laser [id number] Other N/A: [employer] 04/27/2018 [id number] / Implanted: Qty: 1 on 10/14/2017 by Rain Herring MD at [facility]- / [id number] Procedures Procedure Name Priority Date/Time Associated Comments Diagnosis RHEUMATOID FACTOR Routine 08/10/2022 11:10 Pain in right knee Results for this AM CDT procedure are i n the results section. URIC ACID Routine 08/10/2022 11:10 Pain in right knee Resul ts for this AM CDT procedure are i n the results section. CRP INFLAMMATION Routine 08/10/2022 11:10 Pain in right knee R esults for this AM CDT procedure are i n the results section. LYME DISEASE TOTAL ABS Routine 08/10/2022 11:10 Pain in right knee Results for this BLD WITH REFLEX TO AM CDT procedure are in CONFIRM CLIA the results section. ANTI NUCLEAR ULISES IGG Routine 08/10/2022 11:10 Pain in right kn ee Results for this BY IFA WITH REFLEX AM CDT procedure are in the results section. T4 FREE Routine 08/10/2022 11:10 Pain in right knee Resul ts for this AM CDT procedure are i n the results section. THYROXINE TOTAL Routine 08/10/2022 11:10 Pain in right knee Re sults for this AM CDT procedure are i n the results section. T3 TOTAL Routine 08/10/2022 11:10 Pain in right knee Resul ts for this AM CDT procedure are i n the results section. TSH Routine 08/10/2022 11:10 Pain in right knee Resul ts for this AM CDT procedure are i n the results section. D DIMER QUANTITATIVE Routine 08/10/2022 11:10 Pain in right kn ee Results for this AM CDT procedure are i n the results section. WBC AND DIFFERENTIAL Routine 08/10/2022 11:05 Pain in right kn ee Results for this AM CDT procedure are i n the results section. WBC AND DIFFERENTIAL Routine 08/10/2022 11:05 Pain in right kn ee Results for this AM CDT procedure are i n the results section. ERYTHROCYTE Routine 08/10/2022 11:05 Pain in right knee Resul ts for this SEDIMENTATION RATE AM CDT procedure are in AUTO the results section. from Last 3 Months Results Anti Nuclear Ulises IgG by IFA with Reflex (08/10/2022 11:10 AM CDT) [facility] Method Time Signature ERYN interpretation Negative Negative 08/11/2022 [facility] SPECIAL TY 11:44 AM CDT CORE/PROT/EN DO Comment: Negative: ?<1:40 Borderline Positive: ?? 1:40 - 1:80 Positive: ?>1:80 Specimen Anatomical Collection Method / Collection Time Recei jose Time (Source) Location / Volume Laterality Blood STRUCTURE OF RIGHT Venipuncture / 08/10/2022 11:10 HAND / Unknown Unknown AM CDT 11:10 AM CDT Clemente Katz PA-C LAB - BLOOD ORDERABLES Performing Organization Address City/State/ZIP Code Phon e Number SPECIALTY CORE/PROT/ENDO [place], [place] [address] Core/Prot/Endo [address] [facility] [place] [address]-580 Lyme Disease Total Abs Bld with Reflex to Confirm CLIA (08/10/2022 11:10 AM CDT) athologist Signature Lyme Disease 0.27 <0.90 08/10/2022 SPECIALTY Antibodies 3:47 PM CDT CORE/PROT/ENDO Total Comment: Non-reactive, Absence of detect able Borrelia burgdorferi antibodies. A non-reactive result does not exclude the possibility of Borrelia burgdorferi infection. If early Lyme disease is susp ected, a second sample should be collected and tested 2 to 4 weeks later. Specimen Anatomical Collection Method / Collection Time Recei jose Time (Source) Location / Volume Laterality Blood STRUCTURE OF RIGHT Venipuncture / 08/10/2022 11:10 HAND / Unknown Unknown AM CDT 11:10 AM CDT Clemente Katz PA-C LAB - BLOOD ORDERABLES Performing Organization Address [facility] Code Phon e Number SPECIALTY CORE/PROT/ENDO [place]ty [place], [place] [address] Core/Prot/Endo [address] [facility] [place], Room 3-580 Uric acid (08/10/2022 11:10 AM CDT) athologist Signature Uric Acid 4.8 2.0 - 7.5 08/10/2022 [facility] mg/dL 11:36 AM CDT Specimen Anatomical Collection Method / Collection Time Recei jose Time (Source) Location / Volume Laterality Blood STRUCTURE OF RIGHT Venipuncture / 08/10/2022 11:10 HAND / Unknown Unknown AM CDT 11:10 AM CDT Clemente Katz PA-C LAB - BLOOD ORDERABLES Performing Organization Address City/[facility]/ZIP Code Phon e Number [facility] [place] [address] [facility] [address] TSH (08/10/2022 11:10 AM CDT) athologist Signature TSH 0.92 0.30 - 5.00 08/10/2022 [facility] uIU/mL 12:01 PM CDT Specimen Anatomical Collection Method / Collection Time Recei jose Time (Source) Location / Volume Laterality Blood STRUCTURE OF RIGHT Venipuncture / 08/10/2022 11:10 HAND / Unknown Unknown AM CDT 11:10 AM CDT Clemente Katz PA-C LAB - BLOOD ORDERABLES Performing Organization Address City/State/ZIP Code Phon e Number [facility] [place] [address] [address] [facility] Thyroxine total (08/10/2022 11:10 AM CDT) athologist Signature T4 Total 5.4 4.5 - 11.7 08/10/2022 [facility] ug/dL 5:57 PM CDT Specimen Anatomical Collection Method / Collection Time Recei jose Time (Source) Location / Volume Laterality Blood STRUCTURE OF RIGHT Venipuncture / 08/10/2022 11:10 HAND / Unknown Unknown AM CDT 11:10 AM CDT Clemente Katz PA-C LAB - BLOOD ORDERABLES Performing Organization Address City/[facility]/ZIP Code Phon [place] [address] Lab [address] [facility], Room [address]80 T4 free (08/10/2022 11:10 AM CDT) P athologist Signature Free T4 0.98 0.90 - 1.70 08/10/2022 [facility] ng/dL 5:57 PM CDT Specimen Anatomical Collection Method / Collection Time Recei jose Time (Source) Location / Volume Laterality Blood STRUCTURE OF RIGHT Venipuncture / 08/10/2022 11:10 HAND / Unknown Unknown AM CDT 11:10 AM CDT Clemente Katz PA-C LAB - BLOOD ORDERABLES Performing Organization Address City/State/ZIP Code Phon [place] [address] [phone], Room 3[address]580 T3 total (08/10/2022 11:10 AM CDT) athologist Signature T3 Total 110 85 - 202 08/10/2022 [facility] ng/dL 5:57 PM CDT Specimen Anatomical Collection Method / Collection Time Recei jose Time (Source) Location / Volume Laterality Blood STRUCTURE OF RIGHT Venipuncture / 08/10/2022 11:10 HAND / Unknown Unknown AM CDT 11:10 AM CDT Clemente Katz PA-C LAB - BLOOD ORDERABLES Performing Organization Address City/State/ZIP Code Phon e Number [facility] [place] [place] [address] [phone] Lab [address] [facility] [address] Building, Room 3-580 Rheumatoid factor (08/10/2022 11:10 AM CDT) athologist Signature Rheumatoid <6 <12 IU/mL 08/10/2022 [facility] Factor 3:34 PM CDT CORE/PROT/ENDO Specimen Anatomical Collection Method / Collection Time Recei jose Time (Source) Location / Volume Laterality Blood STRUCTURE OF RIGHT Venipuncture / 08/10/2022 11:10 HAND / Unknown Unknown AM CDT 11:10 AM CDT Clemente Katz PA-C LAB - BLOOD ORDERABLES Performing Organization Address City/State/ZIP Code Phon e Number [facility] SPECIALTY CORE/PROT/ENDO UM Specialty [place], [place] [address] Core/Prot/Endo [address] [facility] [address] Building, Room 3-580 (ABNORMAL) D dimer quantitative (08/10/2022 11:10 AM CDT) [facility] gist Method Time Signature D-Dimer 1.69 (H) 0.00 - 08/10/2022 [facility] Quantitative 0.50 11:28 AM CDT ug/mL FEU Specimen Anatomical Collection Method / Collection Time Recei jose Time (Source) Location / Volume Laterality Blood STRUCTURE OF RIGHT Venipuncture / 08/10/2022 11:10 HAND / Unknown Unknown AM CDT 11:10 AM CDT Narrative [facility] - 08/10/2022 11:28 AM CDT This D-dimer assay is intended for use i n conjunction with a clinical pretest probability assessment model to exclude pulmonary embolism (PE) and deep venous thrombosis (DVT) in outpatients suspecte d of PE or DVT. The cut-off value is 0.50 ug/mL FEU. Clemente Katz PA-C LAB - BLOOD ORDERABLES Performing Organization Address City/[facility]/ZIP Code Phon e Number [facility] [place] [address] CRP inflammation (08/10/2022 11:10 AM CDT) P athologist Signature CRP 0.2 0.0 - <0.8 08/10/2022 [facility] mg/dL 11:33 AM CDT Specimen Anatomical Collection Method / Collection Time Recei jose Time (Source) Location / Volume Laterality Blood STRUCTURE OF RIGHT Venipuncture / 08/10/2022 11:10 HAND / Unknown Unknown AM CDT 11:10 AM CDT Clemente Katz PA-C LAB - BLOOD ORDERABLES Performing Organization Address [facility] Code Phon e Number [facility] [place] [address] WBC and Differential (08/10/2022 11:05 AM CDT) Analysis Performed At Patho logist Time Signature WBC Count 4.2 4.0 - 11.0 08/10/2022 [facility] 10e3/uL 11:16 AM CDT % Neutrophils 43 % 08/10/2022 [facility] 11:16 AM CDT % Lymphocytes 42 % 08/10/2022 [facility] 11:16 AM CDT % Monocytes 11 % 08/10/2022 [facility] 11:16 AM CDT % Eosinophils 3 % 08/10/2022 [facility] 11:16 AM CDT % Basophils 1 % 08/10/2022 [facility] 11:16 AM CDT % Immature 0 % 08/10/2022 [facility] Granulocytes 11:16 AM CDT NRBCs per 100 WBC 0 <1 /100 08/10/2022 [facility]Y 11:16 AM CDT Absolute 1.8 1.6 - 8.3 08/10/2022 [facility] Neutrophils 10e3/uL 11:16 AM CDT Absolute 1.8 0.8 - 5.3 08/10/2022 [facility] Lymphocytes 10e3/uL 11:16 AM CDT Absolute 0.5 0.0 - 1.3 08/10/2022 [facility] Monocytes 10e3/uL 11:16 AM CDT Absolute 0.1 0.0 - 0.7 08/10/2022 [facility] Eosinophils 10e3/uL 11:16 AM CDT Absolute 0.0 0.0 - 0.2 08/10/2022 [facility] Basophils 10e3/uL 11:16 AM CDT Absolute Immature 0.0 <=0.4 08/10/2022 [facility] Granulocytes 10e3/uL 11:16 AM CDT Absolute NRBCs 0.0 10e3/uL 08/10/2022 [facility] 11:16 AM CDT Specimen Anatomical Collection Method / Collection Time Recei jose Time (Source) Location / Volume Laterality Blood STRUCTURE OF RIGHT Venipuncture / 08/10/2022 11:05 HAND / Unknown Unknown AM CDT 11:05 AM CDT Clemente Katz PA-C LAB - BLOOD ORDERABLES Performing Organization Address City/State/[place] [address] Erythrocyte sedimentation rate auto (08/10/2022 11:05 AM CDT) [facility] gist Method Time Signature Erythrocyte 13 0 - 20 08/10/2022 [facility] Sedimentation Rate mm/hr 11:45 AM CDT Specimen Anatomical Collection Method / Collection Time Recei jose Time (Source) Location / Volume Laterality Blood STRUCTURE OF RIGHT Venipuncture / 08/10/2022 11:05 HAND / Unknown Unknown AM CDT 11:05 AM CDT Clemente Katz PA-C LAB - BLOOD ORDERABLES Performing Organization Address City/State/[place] [address] from Last 3 Months Insurance Payer Benefit Plan / Subscriber ID Effective Dates Phone Addre ss Type Group MEDICARE MEDICARE [id number] 2012-Ariana [phone] ATTN CLA IMS Medicare nt 0 [address] [place] [address] MEDICA MEDICA ACCESS [id number] 2016-Dirk [phone] [address] [address] [address] [place] [address] [place] [address] Care Teams Delicatessen Slicer Relationship Specialty Start Date End Date Clinic, [facility] PCP - General 06/03/171999 [place] [address]
--- OUTSIDE RECORDS SUMMARY | 2022-08-14 17:40 | XMS_ITS | Encounter Summary ---
:1965 Author Organization [place] Address [address] [place] [address] Care Team Providers Name Role Phone [facility], [facility] Primary Care Provide r Encounter Details Date Type Department Care Team Description [facility] CONVERSION ProviderAlea Social History Tobacco [...] on filedocumented in this encounter Care Teams Narrow Fabrics Weaver Relationship Specialty Start Date End Date [facility] PCP - General 06/03/171999 [place] [address] documented as of this encounter
--- OUTSIDE RECORDS SUMMARY | 2022-08-14 17:41 | XMS_ITS | Encounter Summary ---
:1965 Author Organization [place] Address [address] [place] [address] Care Team Providers Name Role Phone [facility], [facility] Primary Care Provide r Encounter Details Date Type Department Care Team Description [facility] ProviderAlea Social History [...] on filedocumented in this encounter Care Teams Cotton Ball Bagger Relationship Specialty Start Date End Date [facility] PCP - General 06/03/171999 [place] [address] documented as of this encounter
--- OUTSIDE RECORDS SUMMARY | 2022-08-14 17:41 | XMS_ITS | Encounter Summary ---
:1965 Author Organization [place] Address [address] [facility] [place] [address] Care Team Providers Name Role Phone Clinic, [facility] Primary Care Provide r Reason for Visit Auth/Cert Specialty Diagnoses / Procedures Referred By Contact Refer red To Contact Surgery Diagnoses URGE AND STRESS INCONTINENCE,FEMALE STRESS INCONTINENCE Sh Periop Services Procedures CYSTOSCOPY, SLING TRANSVAGINAL [address], [address] [place] [address] Phone: Referral ID Status Reason Start Date Expiration Date Visits Requ ested Visits Authorized [id number] 1 Encounter Details Date Type Department Care Team Description 10/14/2017 Surgery [facility] [place], CYSTOSCOPY ,TVT SLING [place] [facility] ashwin Rodrigez MD [address], [address] [facility] [address] [place] [address] [facility] [phone] [place] [address] (Wo rk) Surgery Details Date/Time Status Location OR Service Patient Case Class Case Tr auma Class Type Case? 10/14/17 1:00 Posted OR OR [facility] Urology Same Day PM Surgery Panel [...] Comments Blood Pressure 93/59 10/14/2017 2:15 PM TABLE KEEPER Pulse - - Temperature 35.7 ??C (96.3 ??F) 10/14/2017 1:31 PM TABLE KEEPER Respiratory Rate 14 10/14/2017 2:15 PM TABLE KEEPER Oxygen Saturation 93% 10/14/2017 2:15 PM TABLE KEEPER Inhaled Oxygen Concentration - - Weight 73.9 kg (163 lb) 10/14/2017 12:15 PM TABLE KEEPER Height 152.4 cm (5') 10/14/2017 12:15 PM TABLE KEEPER Body Mass Index 31.83 10/14/2017 12:15 PM TABLE KEEPER documented in this encounter Discharge Instructions Discharge InstructionsGi King, RADHA - 10/14/2017 1:42 PM TABLE KEEPER Post Bladder Sling Instructions Dr Stafford [phone] ?? For pain you may take a narcotic/acetaminophen combination prescription for pain relief. The mostcommon pain is in the upper thighs. This usually lasts 2-3 days. You may use cold packs to this areaas needed to reduce pain and bruising. Generally [id number] medicines such as ibuprofen, 3-4 tablets every [...] vaginal sutures. ?? Post op appointments: Call [phone] to schedule an appointment to see your [...] know so they can address your concerns. E KEEPER documented in this encounter Medications at Time [...] needed for muscle spasms naloxone (NARCAN) nasal [place] 4 mg into one 0 spray nostril [...] (Takes 2 x 5000 unit tablet = 76599 unit dose) ZONISAMIDE PO Take 300 mg [...] and was given a new prescription for [place]. Prescription for Oxycodone shredded. Patient took hard copy of new [place] prescription with her.; E KEEPER Vicki Matthews RN - 10/14/2017 3:39 PM CST Patient voided, bladder scan 450cc, encouraged patient to void again. Pt voided. Bladder scan for 100-150cc. Patient comfortable and ready to go home. E KEEPER documented in this encounter Miscellaneous Notes Op [...] note, she also underwent sling placement in [facility] and on exam I was able to [...] and draped in the regular fashion. A 16-Sur[place]amese [place] catheter was placed. Periurethral space was [...] EM#[id number] Name: ANGIE MOSQUERA MRN: [id number] Account: [id number] : 1965 Procedure Date: 10/14/2017 Document: [id number] cc: Rain Stafford MD E KEEPER documented in this encounter Plan of Treatment Not on filedocumented as of this encounter Procedures Procedure Name Priority Date/Time Associated Diagnosis Comme nts CREATION, VAGINAL 10/14/2017 12:46 PM URGE AND STRESS SLING, WITH CYSTOSCOPY TABLE KEEPER INCONTINENCE,FEMAL E STRESS INCONTINENCE LAB RESULT - HIM SCAN 10/11/2017 12:00 AM TABLE KEEPER EKG CARDIAC - HIM SCAN 08/15/2017 12:00 AM CDT XRAY IMAGING - HIM 07/25/2017 12:00 AM SCAN CDT documented in this encounter Results LAB RESULT - HIM SCAN (10/11/2017 12:00 AM TABLE KEEPER) Specimen (Source) Anatomical Location Collection Method / [...] 1:21 PM 30 mLs Operative EPINEPHrine 1:200,000 TABLE KEEPER Sit e/Surgical Site injection PRN, Starting on Tue10/14/17 at 1321, Intra-procedure ciprofloxacin (CIPRO) infusion 400 mg Given 10/14/2017 12:59 PM TABLE KEEPER 400 mg Routine, 400 mg, Intravenous, PRE-OP/PRE-PROCEDURE, Starting on Tue10/14/17 at 1155, For 1 dose, Irritant., Indications: Perioperative Pharmacoprophylaxis, Pre-procedure New Bag 10/14/2017 12:26 PM TABLE KEEPER 400 mg fentaNYL (PF) (SUBLIMAZE) injection 25-5 0 mcg Given 10/14/2017 2:01 PM TABLE KEEPER 50 mcg 25-50 mcg, Intravenous, EVERY 2 [...] 100 mcg., PACU Given 10/14/2017 1:50 PM TABLE KEEPER 50 mcg HYDROmorphone (PF) (DILAUDID) injection Given 10/14/2017 2:42 PM TABLE KEEPER 0.5 mg 0.3-0.5 mg 0.3-0.5 mg, Intravenous, [...] minutes., PACU/Phase II Given 10/14/2017 2:18 PM TABLE KEEPER 0.5 mg ondansetron (ZOFRAN) injection 4 mg Given 10/14/2017 2:18 PM TABLE KEEPER 4 mg 4 mg, Intravenous, EVERY 30 [...] tablet 5 mg Given 10/14/2017 2:54 PM TABLE KEEPER 5 mg 5 mg, Oral, ONCE, On Tue10/14/17 at 1500, For 1 dose, PACU scopolamine (TRANSDERM) 72 hr Given 10/14/2017 12:43 PM TABLE KEEPER 1 pa tch Behind Left Ear patch 1 patch 1 patch, Transdermal, EVERY 72 HOURS, First dose on Tue10/14/17 at 1245, Apply patch to skin, behind ear. Remove every 72 hours. Each 1.5 mg patch delivers 1 mg of scopolamine., Pre-procedure skin closure adhesive Given 10/14/2017 1:19 PM 1 applicator Operative (DERMABOND) vial TABLE KEEPER Site/Surgical S ite PRN, Starting on Tue10/14/17 at 1319, Intra-procedure sodium chloride 0.9% Given 10/14/2017 1:09 PM 1,000 mLs Operative (bottle) irrigation TABLE KEEPER Site/Surgical S ite PRN, Starting on Tue10/14/17 at 1309, Intra-procedure sterile water irrigation Given 10/14/2017 1:08 PM 3,000 mLs Operative (bag) TABLE KEEPER Site/Surgical S ite PRN, Intra-procedure, Starting on Tue10/14/17 at 1308, Until Tue10/14/17 at 1544 documented in this encounter Active and Recently Administered Medications Times are shown in TABLE KEEPER. Scheduled Medication Order 10/12/2017 10/13/2017 10/14/2017 ciprofloxacin (CIPRO) infusion 400 mg (COMPLETED) 1226 (New Bag - Provider: Rona Hanks RN)1259 (Given - Provider: Gayatri Combs APRN BISTRO ATTENDANT) Routine, 400 mg, Intravenous, PRE-OP/PRE -PROCEDURE, Starting [...] RADHA) 0.3-0.5 mg, Intravenous, EVERY 10 MIN DC N, other, acute pain.?May administer if Respiratory [...] 1544 documented in this encounter Care Teams Vamp Strap Ironer Relationship Specialty Start Date End Date Clinic, [facility] PCP - General 06/03/171999 [place] [address] documented as of this encounter
--- OUTSIDE RECORDS SUMMARY | 2022-08-14 17:41 | XMS_ITS | Encounter Summary ---
:1965 Author Organization [place] Address [address] [place] [address] Care Team Providers Name Role Phone [facility], [facility] Primary Care Provide r Encounter Details Date Type Department Care Team Description [facility] ProviderAlea Social History Tobacco [...] filedocumented in this encounter Care Teams Office Clinician Relationship Specialty Start Date End Date [facility] PCP - General 06/03/171999 [place] [address] documented as of this encounter
--- OUTSIDE RECORDS SUMMARY | 2022-08-14 17:41 | XMS_ITS | Encounter Summary ---
:1965 Author Organization [place] Address [facility] [place] [address] Care Team Providers Name Role Phone [facility] Provide r Reason for Visit Reason Comments Referral Other ID Encounter Details Date Type Department Care Team Description 05/11/2021 Communication - [facility] [place] Provider, Jameel howard; [facility] Special[facility] Patient Access [address] [place] [phone] Social History Tobacco Use Types Packs/Day Years Used Date Current Every Day Smoker 0.5 Smokeless Tobacco: Never Used Alcohol Use Standard Drinks/Week Comments No 0 (1 standard drink = 0.6 oz pure alcoho l) Sex Assigned at Date Recorded Not on file documented as of this encounter Miscellaneous Notes Telephone Encounter - Historical Provider - 05/13/2021 11:10 AM CDT Date: 05/14/2021 Status: [facility] Time: 3:20 PM Length: 40 Visit Type: CONSULT [[id number]] Copay: $0.00 Provider: Mor Bautista MD Telephone [...] ONLY received??? 05/11/2021 12:05pm inside ID consult [facility], , Referring: Dr David Cohn, DX: status post shoulder replacement, left Order comments: Asking for HALI, this week. documented in this encounter Plan of Treatment Not on filedocumented as of this encounter Visit Diagnoses Not on filedocumented in this encounter Care Teams Intake Specialist Relationship Specialty Start Date End Date Clinic, [facility] PCP - General 06/03/171999 [place] [address] documented as of this encounter
--- OUTSIDE RECORDS SUMMARY | 2022-08-14 17:41 | XMS_ITS | Encounter Summary ---
:1965 Author Organization [place] Address [facility] [place] [address] Care Team Providers Name Role Phone Clinic, [facility] Primary Care Provide r Reason for Visit Reason Comments Back Pain Neck Pain Encounter Details Date Type Department Care Team Description 06/03/2017 Emergency [facility] Heggestad, Zoey Acute mi dline low back pain, with sciatica presence unspecified; [facility] Emergency Dep phuong Flowers PA-C Chronic neck pain [address] [facility] EMERGENCY PHYSICIANS [place], [place] [address] 5[address] [facility] [phone] [place], [place] [address] (Wo rk) Social History [...] that she received adequate care at the [facility] that she has been too. Pt reports that she left [facility] yesterday after they did not address her issues. Pt states that she would like something to take her painaway and upset that has not been receiving adequate pain control. SW explained that this telegraphic typewriter mechanic could not provide pt with pain meds [...] Evans RN - 06/03/2017 3:41 PM CDT line out worker is talking with patient per patient [...] pain in her sternum.She was seen at [facility] and evaluated for neck pain but left [...] and that she is seeing doctors at [facility] for evaluation. She reports that most of [...] 6 months ago when she ran into [employer]. She states that she called her pain management center, [facility], and that they referred [...] a history of chronic pain who sees [facility] for her prescription for [...] son tells me that they went to [facility] and they told the nurse that they went to [facility] emergency room as well in the past few days but nobody did anything or me. Here, the patient notes that hardware in her C-spine has loosened and she is scheduled to see [facility] physician to possibly look [...] came to talk to me. The social economist states that the patient wanted to complain about our care to her but she had no complaints of social issues at home. line out worker referred her back to me. I [...] I did also speak to a P.A. conductor/brakeman for [facility], [place], who agreed [...] observations and the provider's statements to me. [facility] EMERGENCY DEPARTMENT Zoey López PA-C 06/03/17 [...] Region Laterality Modality Spine, SUBRAD CT MSK, [facility] CT SPINE Compu mary Tomography [...] dose documented in this encounter Care Teams Program Clerk Relationship Specialty Start Date End Date [facility] PCP - General 06/03/171999 [place] [address] documented as of this encounter
--- OUTSIDE RECORDS SUMMARY | 2022-08-14 17:41 | XMS_ITS | Encounter Summary ---
:1965 Author Organization [place] Address [address] [place] [place] [address] Care Team Providers Name Role Phone Unavailable Primary Care Provider Unavailable Encounter Details Date Type Department Care Team Description 07/29/2011 Emergency room [facility] EMERGENCY NURY CISNEROS Results [address] [place], [place] [address] Social History Tobacco Use Types Packs/Day Years Used Date Never Assessed Sex Assigned at Date Recorded Not on file documented as of this encounter Progress Notes Interface, Aerial Photogrammetrist - 07/31/2011 10:23 AM CDT FINAL Chief [...] she recently came to the area from [place] to visit her father (approximately two weeks [...] with a friend. The patient resides in [place], and is here in the [facility] area visiting her father. The patient states that she has been smoking one pack of cigarettes per day since 1973. Her primary care physician is Dr. Holley De La Rosa in [place], [place]. \n Her chronic pain doctor is Dr. Garcia at [facility] in [place]. - Is negative for Illicit drug use, [...] MD As dictated by NUHA KAUR MT: JOS ÉMIGUEL Name: KAYLIN MOSQUERA Account: [id number] : 1965 Visit Date: 07/29/2011 Document: [id number] documented in this encounter Plan of Treatment Not on filedocumented as of this encounter Visit Diagnoses Not on filedocumented in this encounter
--- OUTSIDE RECORDS SUMMARY | 2022-08-14 17:41 | XMS_ITS | Encounter Summary ---
:1965 Author Organization [place] Address [facility] hospital[facility] [place] [address] Care Team Providers Name Role Phone Clinic, [facility] Primary Care Provider [phone] Reason for Visit Reason Comments Fall Encounter Details Date Type Department Care Team Description 05/17/2017 Emergency [facility] Jose Guadalupe Betancourt MD Acute neck pain; [facility] Emergency Dep t EMERGENCY PHYSICIANS Shoulder strain, unspecified laterality, initial encounter [address] [place], [place] [address] [employer] [address] [place] [address] [place], [place] [address] (Wo rk) Social History Tobacco Use Types [...] contain Tylenol?? (acetaminophen), including Vicodin??, Tylenol #3??, [place]??, Lortab??, and Percocet??. You should not take [...] contain Tylenol?? (acetaminophen), including Vicodin??, Tylenol #3??, [place]??, Lortab??, and Percocet??. You should not take [...] neck fusion Reports taking tylenol 2 hrs BOOK SEWER Jose Guadalupe Betancourt MD - 05/17/2017 7:20 [...] Surgical History: Abdomen surgery Back surgery Cholecystectomy TECHNICAL SOLUTIONS DIRECTOR surgery Orthopedic Surgery Family History: History reviewed. [...] I spoke with Dr. Davis of the [facility] regarding patient's presentation, findings, [...] and the provider's statements to me. 05/17/2017 [facility] EMERGENCY DEPARTMENT Jose Guadalupe Betancourt [...] NAZANIN MCCORMACK MD Jose Guadalupe Betancourt MD [facility] ORDERABLES documented in this encounter Visit [...] grams documented in this encounter Care Teams System Operation Superintendent Relationship Specialty Start Date End Date [facility], [facility] PCP - General 05/17/17 06/02/17 [address] [place] [address] documented as of this encounter
--- OUTSIDE RECORDS SUMMARY | 2022-08-14 17:41 | XMS_ITS | Encounter Summary ---
:1965 Author Organization [place] Address [facility] [place] [address] Care Team Providers Name Role Phone On License [facility] Primary Care Provide r Mor Bautisat MD Unavailable Encounter Details Date Type Department [...] on filedocumented in this encounter Care Teams Medicinal Chemist Relationship Specialty Start Date End Date [facility] PCP - General 06/03/17 [facility] [address] [place] [address] Mor Bautista MD Assigned Infectious Disease 06/12/2106/25 [address] Porter Provider [address] [place] [address] documented as of this encounter
--- OUTSIDE RECORDS SUMMARY | 2022-08-14 17:41 | XMS_ITS | Encounter Summary ---
:1965 Author Organization [place] Address [address] [place] [address] Care Team Providers Name Role Phone Clinic, [facility] Primary Care Provide r Reason for Visit Auth/Cert Specialty Diagnoses / Procedures Referred By Contact Refer red To Contact Surgery Diagnoses URGE AND STRESS INCONTINENCE,FEMALE STRESS INCONTINENCE Sh Periop Services Procedures CYSTOSCOPY, SLING TRANSVAGINAL [address] [place] [address] Phone: Referral ID Status Reason Start Date Expiration Date Visits Requ ested Visits Authorized [id number] 1 1 Encounter Details Date Type Department Care Team Description 10/14/2017 Anesthesia Event [facility] SruthiEri rosa MD [facility] ANESTHESIA [address] [place] [id number] [facility] PeriOP Gayatri Combs, LAB AIDE CONSULTING DATABASE ADMINISTRATOR [address] [place] [address] Services [address] [place] [address] Anesthesia Record Procedure Summary Procedure Name [...] Gayatri Combs, Vicki Collins D, Injectable; Tolerated CONSULTING DATABASE ADMINISTRATOR RN well Retired Non-Surgical 10/14/17; 1254; Easy; 10/14/17 1254 by 09/28 06/13 1328 by Airway Intravenous; 4; mm; Gayatri Combs, LAB AIDE Gayatri Combs, laryngeal mask airway; CONSULTING DATABASE ADMINISTRATOR LAB AIDE CONSULTING DATABASE ADMINISTRATOR midline; Equal, clear and bilateral; CONSULTING DATABASE ADMINISTRATOR; hh Urethral Catheter 10/14/17; 1314; No; 10/14/17 1314 by 10/14/17 1316 by /GI/MELTER OPERATOR Pelvic Usha Bar, Carole Duff, Procedure; 16 [...] MD, MD October 14, 2017 1:50 PM ICAL BRACE MAKER Anesthesia Preprocedure Evaluation - Mini Negro MD [...] SURGERY ??? BACK SURGERY ??? CHOLECYSTECTOMY ??? MELTER OPERATOR SURGERY ??? ORTHOPEDIC SURGERY Social History Substance [...] (Takes 2 x 5000 unit tablet = 39466 unit dose) Yes Reported, Patient Esomeprazole Magnesium [...] Yes Reported, Patient naloxone (NARCAN) nasal spray [place] 4 mg into one nostril alternating nostrils [...] Reported, Patient Current Facility-Administered Medications Ordered in [facility] Medication Dose Route Frequency Last Rate Last Dose ??? Provider ordered ALTERNATE pre op antibiotic. 1 each As instructed Continuous ??? ciprofloxacin (CIPRO) infusion 400 mg 400 mg Intravenous Pre-Op/Pre-procedure x 1 dose No current [facility]-ordered outpatient prescriptions on file. ??? Another [...] GLC, BUN, CR, ROGER in the last 05851dqmnl. No results for input(s): AST, ALT, ALKPHOS, BILITOTAL, LIPASE in the last 51777 hours. No results for input(s): WBC, HGB, PLT in the last 62202 hours. No results for input(s): ABO, RH in the last 06590 hours. No results for input(s): INR, PTT in the last 59812 hours. No results for input(s): TROPI in the last 83399 hours. No results for input(s): PH, PCO2, PO2, HCO3 in the last 27917 hours. No results for input(s): HCG in the last 66667 hours. No results found for this or any previous visit (from the past 744 hour(s)). RECENT LABS: ECG: ECHO: ICAL BRACE MAKER documented in this encounter Miscellaneous Notes Anesthesia [...] APRN CRNA October 14, 2017 1:34 PM ICAL BRACE MAKER documented in this encounter Plan of Treatment Not on filedocumented as of this encounter Visit Diagnoses Not on filedocumented in this encounter Administered Medications Inactive Administered Medications - up to 3 most recent administrations Medication Order MAR Action Action Date Dose Rate Site ciprofloxacin (CIPRO) infusion Given 10/14/2017 12:59 PM SURGICAL BRACE MAKER 400 mg 400 mg Routine, 400 mg, Intravenous, PRE-OP/PRE-PROCEDURE, Starting on Tue10/14/17 at 1155, For 1 dose, Irritant., Indications: Perioperative Pharmacoprophylaxis, Pre-procedure New Bag 10/14/2017 12:26 PM SURGICAL BRACE MAKER 400 mg dexamethasone (DECADRON) injection Given 10/14/2017 1:03 PM SURGICAL BRACE MAKER 4 mg PRN, Administer over 1 Minutes, Starting on Tue10/14/17 at 1303, Anesthesia Intra-op dexmedetomidine (PRECEDEX) 4 mcg/mL bolu s Bolus 10/14/2017 1:08 PM SURGICAL BRACE MAKER 8 mcg 200 mcg, CONTINUOUS PRN, Starting on Tue10/14/17 at 1305, Anesthesia Intra-op New Bag 10/14/2017 1:05 PM SURGICAL BRACE MAKER 12 mcg fentaNYL (PF) (SUBLIMAZE) injection Given 10/14/2017 12:52 PM SURGICAL BRACE MAKER 100 mcg PRN, moderate to severe pain, Administer over 3-5 Minutes, Starting on Tue10/14/17 at 1252, Anesthesia Intra-op lactated ringers infusion New Bag 10/14/2017 12:51 PM SURGICAL BRACE MAKER Intravenous, CONTINUOUS PRN, Anesthesia Intra-op, Starting on Tue10/14/17 at 1251, Until Tue10/14/17 at 1334 lidocaine injection 2% (MDV) Given 10/14/2017 12:52 PM SURGICAL BRACE MAKER 80 mg PRN, Starting on Tue10/14/17 at 1252, Anesthesia Intra-op midazolam (VERSED) injection Given 10/14/2017 12:51 PM SURGICAL BRACE MAKER 2 mg Administer over 2 Minutes, PRN, anxiety, Starting on Tue10/14/17 at 1251, Anesthesia Intra-op ondansetron (ZOFRAN) injection Given 10/14/2017 1:03 PM SURGICAL BRACE MAKER 4 mg PRN, nausea, vomiting, Administer over 2-5 Minutes, Starting on Tue10/14/17 at 1303, Anesthesia Intra-op propofol (DIPRIVAN) infusion Rate/Dose 10/14/2017 1:14 150 mcg/kg/min 66.5 mL/hr Intravenous, CONTINUOUS PRN, Change PM SURGICAL BRACE MAKER Starting on Tue10/14/17 at 1252, Anesthesia Intra-op New Bag 10/14/2017 12:52 PM SURGICAL BRACE MAKER 200 mcg/kg/min 88.7 mL/hr propofol (DIPRIVAN) injection 10 mg/mL v ial Given 10/14/2017 1:06 PM SURGICAL BRACE MAKER 50 mg PRN, Starting on Tue10/14/17 at 1252, Anesthesia Intra-op Given 10/14/2017 12:52 PM SURGICAL BRACE MAKER 150 mg documented in this encounter Care Teams Pharmacy Technology Instructor Relationship Specialty Start Date End Date Clinic, [facility] PCP - General 06/03/171999 [place] [address] documented as of this encounter
--- OUTSIDE RECORDS SUMMARY | 2022-08-14 17:41 | XMS_ITS | Encounter Summary ---
:1965 Author Organization [place] Address [facility] [place] [address] Care Team Providers Name Role Phone [facility] Primary Care Provide r Mor Batuista MD Unavailable Encounter Details Date Type Department [...] on filedocumented in this encounter Care Teams Application Support Intern Relationship Specialty Start Date End Date [facility], [facility] PCP - General 06/03/17 [facility] [address] [place] [address] Mor Bautista MD Assigned Infectious Disease 06/12/2106/25 [facility] Mohan Porter Provider [address] [place] [address] documented as of this encounter
--- OUTSIDE RECORDS SUMMARY | 2022-08-14 17:41 | XMS_ITS | Encounter Summary ---
:1965 Author Organization [place] Address [address] [place] [address] Care Team Providers Name Role Phone [facility] Primary Care Provide r Encounter Details Date [...] on filedocumented in this encounter Care Teams Log Chain Feeder Relationship Specialty Start Date End Date [facility] PCP - General 06/03/171999 [place] [address] documented as of this encounter
--- OUTSIDE RECORDS SUMMARY | 2022-08-14 17:41 | XMS_ITS | Encounter Summary ---
:1965 Author Organization [place] Address [address] [facility] [place] [address] Care Team Providers Name Role Phone Clinic, [facility] Primary Care Provide r Reason for Visit Auth/Cert Specialty Diagnoses / Procedures Referred By Contact Refer red To Contact Surgery Diagnoses URGE AND STRESS INCONTINENCE,FEMALE STRESS INCONTINENCE Sh Periop Services Procedures CYSTOSCOPY, SLING TRANSVAGINAL [address] [place] [address] Phone: Referral ID Status Reason Start Date Expiration Date Visits Requ ested Visits Authorized [id number] 1 1 Encounter Details Date Type Department Care Team Description 10/14/2017 Hospital Encounter [facility] Sitbonnie, Mary Ann ss incontinence Shayne Rodrigez MD (Primary Dx) PreOP/Phase II [facility] [address], UROLOGY [address] [facility] [address] [place] [address] [phone] Social History Tobacco Use Types Packs/Day Years Used Date Current Every Day Smoker 0.5 Smokeless Tobacco: Never Used Alcohol Use Standard Drinks/Week Comments No 0 (1 standard drink = 0.6 oz pure alcoho l) Sex Assigned at Date Recorded Not on file documented as of this encounter Last Filed Vital Signs Vital Sign Reading Time Taken Comments Blood Pressure 121/86 10/14/2017 4:28 PM SHEET ROCK TAPER Pulse - - Temperature 36.6 ??C (97.8 ??F) 10/14/2017 3:00 PM SHEET ROCK TAPER Respiratory Rate 16 10/14/2017 4:28 PM SHEET ROCK TAPER Oxygen Saturation 98% 10/14/2017 4:28 PM SHEET ROCK TAPER Inhaled Oxygen Concentration - - Weight 73.9 kg (163 lb) 10/14/2017 12:15 PM SHEET ROCK TAPER Height 152.4 cm (5') 10/14/2017 12:15 PM SHEET ROCK TAPER Body Mass Index 31.83 10/14/2017 12:15 PM SHEET ROCK TAPER documented in this encounter Discharge Instructions Discharge InstructionsGi King RN - 10/14/2017 1:42 PM SHEET ROCK TAPER Post Bladder Sling Instructions Dr Stafford [phone] ?? For pain you may take a narcotic/acetaminophen combination prescription for pain relief. The mostcommon pain is in the upper thighs. This usually lasts 2-3 days. You may use cold packs to this areaas needed to reduce pain and bruising. Generally tagx-roo-cphuuta medicines such as ibuprofen, 3-4 tablets every [...] vaginal sutures. ?? Post op appointments: Call [phone] to schedule an appointment to see your [...] know so they can address your concerns. T ROCK TAPER documented in this encounter Medications at Time [...] needed for muscle spasms naloxone (NARCAN) nasal [place] 4 mg into one 0 spray nostril [...] (Takes 2 x 5000 unit tablet = 25135 unit dose) ZONISAMIDE PO Take 300 mg [...] and was given a new prescription for Olden. Prescription for Oxycodone shredded. Patient took hard copy of new Olden prescription with her.; T ROCK TAPER Vicki Matthews RN - 10/14/2017 3:39 PM CST Patient voided, bladder scan 450cc, encouraged patient to void again. Pt voided. Bladder scan for 100-150cc. Patient comfortable and ready to go home. T ROCK TAPER documented in this encounter Miscellaneous Notes Op [...] note, she also underwent sling placement in [facility] and on exam I was able to [...] and draped in the regular fashion. A 16-[place] catheter was placed. Periurethral space was [...] MD MT: [id number] Name: ANGIE MOSQUERA Account: [id number] : 1965 Procedure Date: 10/14/2017 Document: [id number] cc: Rain Stafford MD T ROCK TAPER documented in this encounter Plan of Treatment Not on filedocumented as of this encounter Procedures Procedure Name Priority Date/Time Associated Diagnosis Comme nts CREATION, VAGINAL 10/14/2017 12:46 PM URGE AND STRESS SLING, WITH CYSTOSCOPY SHEET ROCK TAPER INCONTINENCE,FEMAL E STRESS INCONTINENCE LAB RESULT - HIM SCAN 10/11/2017 12:00 AM SHEET ROCK TAPER EKG CARDIAC - HIM SCAN 08/15/2017 12:00 AM CDT XRAY IMAGING - HIM 07/25/2017 12:00 AM SCAN CDT documented in this encounter Results LAB RESULT - HIM SCAN (10/11/2017 12:00 AM SHEET ROCK TAPER) Specimen (Source) Anatomical Location Collection Method / [...] ciprofloxacin (CIPRO) infusion Given 10/14/2017 12:59 PM SHEET ROCK TAPER 400 mg 400 mg Routine, 400 mg, Intravenous, PRE-OP/PRE-PROCEDURE, Starting on Tue10/14/17 at 1155, For 1 dose, Irritant., Indications: Perioperative Pharmacoprophylaxis, Pre-procedure New Bag 10/14/2017 12:26 PM SHEET ROCK TAPER 400 mg fentaNYL (PF) (SUBLIMAZE) injection 25-5 0 mcg Given 10/14/2017 2:01 PM SHEET ROCK TAPER 50 mcg 25-50 mcg, Intravenous, EVERY 2 [...] 100 mcg., PACU Given 10/14/2017 1:50 PM SHEET ROCK TAPER 50 mcg HYDROmorphone (PF) (DILAUDID) injection Given 10/14/2017 2:42 PM SHEET ROCK TAPER 0.5 mg 0.3-0.5 mg 0.3-0.5 mg, Intravenous, [...] minutes., PACU/Phase II Given 10/14/2017 2:18 PM SHEET ROCK TAPER 0.5 mg ondansetron (ZOFRAN) injection 4 mg Given 10/14/2017 2:18 PM SHEET ROCK TAPER 4 mg 4 mg, Intravenous, EVERY 30 [...] tablet 5 mg Given 10/14/2017 2:54 PM SHEET ROCK TAPER 5 mg 5 mg, Oral, ONCE, On Tue10/14/17 at 1500, For 1 dose, PACU scopolamine (TRANSDERM) 72 hr Given 10/14/2017 12:43 PM SHEET ROCK TAPER 1 pa tch Behind Left Ear patch 1 patch 1 patch, Transdermal, EVERY 72 HOURS, First dose on Tue10/14/17 at 1245, Apply patch to skin, behind ear. Remove every 72 hours. Each 1.5 mg patch delivers 1 mg of scopolamine., Pre-procedure documented in this encounter Active and Recently Administered Medications Times are shown in SHEET ROCK TAPER. Scheduled Medication Order 10/12/2017 10/13/2017 10/14/2017 ciprofloxacin (CIPRO) infusion 400 mg (COMPLETED) 1226 (New Bag - Provider: Rona Hanks RN)1259 (Given - Provider: Gayatri Combs APRN CERTIFIED DENTAL ASSISTANT) Routine, 400 mg, Intravenous, PRE-OP/PRE -PROCEDURE, Starting [...] RADHA) 0.3-0.5 mg, Intravenous, EVERY 10 MIN CO N, other, acute pain.?May administer if Respiratory [...] 1544 documented in this encounter Care Teams Tractor Engine Mechanic Relationship Specialty Start Date End Date [facility], [facility] PCP - General 06/03/171999 [place] [address] documented as of this encounter
--- OUTSIDE RECORDS SUMMARY | 2022-08-14 17:41 | XMS_ITS | Encounter Summary ---
:1965 Author Organization [place] Address [facility] [place] [address] Care Team Providers Name Role Phone Unavailable Primary Care Provider Unavailable Encounter Details Date Type Department Care Team Description 04/15/2009 Historic Results INTERFACED REPORT Kai Munoz MD [address] [facility] [address] [place] [address] (Wo rk) Social History Tobacco [...]
--- OUTSIDE RECORDS SUMMARY | 2022-08-14 17:41 | XMS_ITS | Encounter Summary ---
:1965 Author Organization [place] Address [facility] [place] [address] Care Team Providers Name Role Phone Unavailable Primary Care Provider Unavailable Encounter Details Date Type Department Care Team Description 07/29/2011 Historic Notes INTERFACED REPORT Interface, Transcript onMD Social History Tobacco Use Types Packs/Day Years Used Date Never Assessed Sex Assigned at Date Recorded Not on file documented as of this encounter Progress Notes Interface, Adult Neuropsychologist - 08/30/2011 5:48 PM CDT Allergies ?? [...]
--- OUTSIDE RECORDS SUMMARY | 2022-08-14 17:41 | XMS_ITS | Encounter Summary ---
:1965 Author Organization [place] Address [address] [place] [address] Care Team Providers Name Role Phone Unavailable Primary Care Provider Unavailable Reason for Visit Reason Onset Date Comments Previsit 12/11/2014 12/19/[address] Juice mackenzie Encounter Details Date Type Department Care Team Description 12/11/2014 PRE VISIT Yasmin, Previsit ( [facility] Shauna Alejo MD with Dr Humphrey) [place] [address] [place], [place] [phone] (Wo rk) Social History Tobacco Use Types Packs/Day Years Used Date Never Assessed Sex Assigned at Date Recorded Not on file documented as of this encounter Plan of Treatment Not on filedocumented as of this encounter Visit Diagnoses Not on filedocumented in this encounter
--- OUTSIDE RECORDS SUMMARY | 2022-08-14 17:41 | XMS_ITS | Encounter Summary ---
:1965 Author Organization [place] Address [address] [place] [place] [address] Care Team Providers Name Role Phone [facility] Primary Care Provide r Encounter Details Date [...] on filedocumented in this encounter Care Teams Production Graphic Designer Relationship Specialty Start Date End Date [facility] PCP - General 06/03/171999 [place] [address] documented as of this encounter
--- OUTSIDE RECORDS SUMMARY | 2022-08-14 17:41 | XMS_ITS | Encounter Summary ---
:1965 Author Organization [employer] Address [address] [place] [address] Care Team Providers Name Role Phone Clinic, [facility] Primary Care Provide r Encounter Details Date Type Department Care Team Description 03/20/2021 Records - [facility], [facility] [address] [place] [address] [phone] Social History Tobacco Use Types Packs/Day Years [...] Bacterial Culture Routine (03/20/2021 6:00 AM CDT) [facility] Method Time Signature Culture STAPHYLOCOCCUS 03/27/2021 [facility] EPIDERMIDIS (A) 8:01 AM CDT [facility] Comment: Staphylococcus epidermidis Isolated from broth only Gram Stain 4+ Polymorphonuclear 03/27/2021 8:01 AM HEALTH Result leukocytes [facility] Gram Stain No organisms seen 03/27/2021 8:01 AM HEALTH Result CDT [facility] Specimen Anatomical Collection Method Collection Time Receive d Time (Source) Location / / Volume Laterality Body fluid Non-blood 03/20/2021 6:00 AM 1 specimen Collection / CDT 12:05 PM CDT (specimen) [...] MICRO GENERAL ORDERABL ES Performing Organization Address City/[facility] [place] [address] [address] [facility] Anaerobic Bacterial Culture Routine (03/20/2021 6:00 AM CDT) [facility] Method Time Signature Culture No anaerobic 03/23/2021 HEALTH organisms 7:18 AM CDT [facility] Specimen Anatomical Collection Method Collection Time Receive d Time (Source) Location / / Volume Laterality Body fluid Non-blood 03/20/2021 6:00 AM 1 specimen Collection / CDT 12:05 PM CDT (specimen) Unknown [facility] - MICRO GENERAL ORDERABL ES Performing Organization Address City/[facility]/[place] [address] [address] [facility] (ABNORMAL) Cell count with differential fluid (03/20/2021 6:00 AM CDT) [facility] Method Time Signature Color Red 03/20/2021 HEALTH 2:04 PM CDT [facility] Clarity Turbid 03/20/2021 HEALTH 2:04 PM CDT [facility] Total Nucleated 42,864 (H) 0 - 99 03/20/2021 [facility] Cells /uL 2:04 PM CDT [facility] RBC, Fluid >50,000 <50,000 03/20/2021 HEALTH (A) /ul 2:04 PM CDT [facility] % Neutrophils 91 (H) <=25 % 03/20/2021 [facility] 2:04 PM CDT [facility] % Lymphocytes 8 <=78 % 03/20/2021 [facility] 2:04 PM CDT [facility] Monocyte % 1 <=71 % 03/20/2021 [facility] 2:04 PM CDT [facility] Macrophage % 03/20/2021 [facility] 2:04 PM CDT [facility] Mesothelials, 03/20/2021 [facility] Fluid 2:04 PM CDT [facility] % Eosinophils 03/20/2021 [facility] 2:04 PM CDT [facility] % Other Cells 03/20/2021 [facility] 2:04 PM CDT [facility] Specimen Anatomical Collection Method Collection Time Receive d Time (Source) Location / / Volume Laterality Body fluid BODY FLUID Non-blood 03/20/2021 6:00 AM specimen SPECIMEN / Unknown Collection / CDT 12:05 PM CDT (specimen) Unknown Narrative [facility] - 03/20/2021 2:04 PM CDT Large clot present; count may be inaccur ate. [facility] - BODY FLUIDS ORDERABLES Performing Organization Address City/State/ZIP Code Phon e [place] [address] [phone] [facility] [address] [place] [address] [facility] [place] [address], [facility] [phone] [facility] [address] documented in this encounter Visit Diagnoses Not on filedocumented in this encounter Care Teams Agricultural Inspector Relationship Specialty Start Date End Date Clinic, [facility] PCP - General 06/03/171999 [place] [address] documented as of this encounter
--- OUTSIDE RECORDS SUMMARY | 2022-08-14 17:41 | XMS_ITS | Encounter Summary ---
:1965 Author Organization [place] Address [address] [place] [address] Care Team Providers Name Role Phone Amna Fletcher Primary Care Provider Reason for Visit Reason Comments Chest Wall Pain Encounter Details Date Type Department Care Team Description 07/18/2016 [facility], [facility]; [facility] Emergency [facility] phuong Ross MD Closed fracture of rib of right side, in itial encounter [address] [facility], [place] [address] [address] [facility] [address] [place] [address] (Wo rk) Social History Tobacco Use Types [...] your healthcare provider ?? Congested cough ?? [phone] [employer]. [address] [place] [address]. All rights reserved. This information is not intended as a substitute for professional medical care. Always follow your healthcare professional's instructions. AttachmentsThe following attachments cannot be sent through Care Everywhere.BONE BRUISE (BONE CONTUSION), UNDERSTANDING (ROMANIAN)documented in this encounter Medications at Time of [...] surgery Bilateral knee arthroplasty Gastric bypass Cholecystectomy Demographic Analyst surgery Family History: History reviewed. No pertinent [...] Department Course ECG (01:17:19): Rate 69 bpm. WV interval 176. QRS duration 94. QT/QTc 408/437. [...] hours for 10 days Adrian Vera 07/18/2016 [facility] EM[facility] IAdrian am serving as a scribe at 1:03 AM on 07/18/2016 to document services personally performed by Radha Espana MD based on my observations and the provider's statements to me. Radha Espana MD 07/18/16 [address], RADHA - 07/18/2016 12:48 AM [...] EKG 12 lead (07/18/2016 1:17 AM CDT) [facility] gist Method Time Signature Interpretation ECG [...] dose documented in this encounter Care Teams Supervisor Kosher Dietary Service Relationship Specialty Start Date End Date Amna Fletcher PCP - General 07/18/16 05/16/17 [facility] [address] [place] [address] documented as of this encounter
--- OUTSIDE RECORDS SUMMARY | 2022-08-14 17:41 | XMS_ITS | Encounter Summary ---
:1965 Author Organization [place] Address [address] [place] [address] Care Team Providers Name Role Phone [facility] Primary Care Provide r Encounter Details Date Type Department Care Team Description [facility]2021 [facility] CONVERSION ProviderAlea Social History Tobacco [...] on filedocumented in this encounter Care Teams .Net Programmer Relationship Specialty Start Date End Date [facility] PCP - General 06/03/171999 [place] [address] documented as of this encounter
--- OUTSIDE RECORDS SUMMARY | 2022-08-14 17:41 | XMS_ITS | Encounter Summary ---
:1965 Author Organization [place] Address [address] [facility] [place] [address] Care Team Providers Name Role Phone Unavailable Primary Care Provider Unavailable Encounter Details Date Type Department Care Team Description 04/15/[address] [facility] Evelio Munoz MD Hospital Results [address] [place] [phone] (Wo rk) Social History Tobacco Use Types [...] MD SPECIAL IMAGING STUDIES Performing Organization Address City/[facility] Code Phon e Number RADIOLOGY RESULTS [...] MD SPECIAL IMAGING STUDIES Performing Organization Address [facility] Code Phon e Number RADIOLOGY RESULTS documented in this encounter Visit Diagnoses Not on filedocumented in this encounter
--- OUTSIDE RECORDS SUMMARY | 2022-08-14 17:41 | XMS_ITS | Encounter Summary ---
:1965 Author Organization [place] Address [address] [place] [address] Care Team Providers Name Role Phone [facility], [facility] Primary Care Provide r Encounter Details Date Type Department Care Team Description 03/03/2021 [facility] CONVERSION ProviderAlea Social History [...] on filedocumented in this encounter Care Teams Kiln Head House Operator Relationship Specialty Start Date End Date [facility] PCP - General 06/03/171999 [place] [address] documented as of this encounter
--- OUTSIDE RECORDS SUMMARY | 2022-08-14 17:41 | XMS_ITS | Encounter Summary ---
:1965 Author Organization [place] Address [address] [facility] [place] [address] Care Team Providers Name Role Phone Unavailable Primary Care Provider Unavailable Encounter Details Date Type Department Care Team Description 04/15/2009 Emergency room [facility] Evelio Lamar MD Hospital Results [address] [place] [phone] (Wo rk) Social History Tobacco Use Types [...] is Dr. Holley De La Rosa in [place], [place]. Her chronic pain doctor is Dr. Garcia at [facility] in [place]. Thepatient has had previous cervical and lumbar [...] Compazine. I gave her referral information for [facility] if she has further problems while she was in [place]. She plans to be here another 1-2 weeks. DISCHARGE DIAGNOSES: 1. Acute exacerbation of chronic back pains. 2. Nausea. Electronically signed on 05/01/2009 06:49 by EVELIO LAMAR MD [place]: [facility][id number] Name: KAYLIN MOSQUERA MRN: [id number] Account: [id number] : 1965 Visit Date: 04/15/2009 Document: [id number] cc: Oc De La oRsa MD documented in this encounter Plan of Treatment Not on filedocumented as of this encounter Visit Diagnoses Not on filedocumented in this encounter
--- OUTSIDE RECORDS SUMMARY | 2022-08-14 17:42 | XMS_ITS | Encounter Summary ---
:1965 Author Organization [facility] Address [address] [place] [address] Care Team Providers Name Role Phone Jose Holden MD Primary Care Provider [phone] Encounter Details Date Type Department Care Team Description 07/10/2018 Consent for [facility] Procedure/Treat [facility] Tony Alvarado MD FOR [place]/PROCEDURE ent Pain Management [address] [place] [phone] Social History Tobacco Use Types Packs/Day Years [...] on filedocumented in this encounter Care Teams Capital Project Engineer Relationship Specialty Start Date End Date Jose Holden MD PCP - General Otolaryngology 12/14/[address] [place], [place] [phone] documented as of this encounter
--- OUTSIDE RECORDS SUMMARY | 2022-08-14 17:42 | XMS_ITS | Encounter Summary ---
:1965 Author Organization [facility] Address [address], [place] [address] Care Team Providers Name Role Phone Jose Holden MD Primary Care Provider [phone] Reason for Visit Reason Comments Revisit Encounter Details Date Type Department Care Team Description 08/14/2018 Office Visit [facility] Pete Gonzalez, Neck pain (Primary [facility] MD Dx) Neurosurgery/Ortho [address] [facility] Spine [address] [facility]. [place], [place] [address] [address] [phone] Social History Tobacco Use Types Packs/Day Years [...] Surgery center (4th floor [address], [place]).prior to your next appointment. Follow up: with [...] your understanding. Please call the Neurosurgery Center [phone] with any further questions or concerns or [...] Cervicalgia documented in this encounter Care Teams It Engineer Relationship Specialty Start Date End Date Jose Holden MD PCP - General Otolaryngology 12/14/17 [facility] [place] [address] documented as of this encounter
--- OUTSIDE RECORDS SUMMARY | 2022-08-14 17:42 | XMS_ITS | Encounter Summary ---
:1965 [facility] Address [address], [place] [address] Care Team Providers Name Role Phone Jose Holden MD Primary Care Provider [phone] Encounter Details Date Type Department Care Team Description 11/10/2018 Emergency Room External to External, Provid er FALL/HEADACHE NECK LT No [place] [address] Social History Tobacco Use Types Packs/Day Years [...] on filedocumented in this encounter Care Teams Environmental Coordinator Relationship Specialty Start Date End Date Jose Holden MD PCP - General Otolaryngology 12/14/17 [place] [address] documented as of this encounter
--- OUTSIDE RECORDS SUMMARY | 2022-08-14 17:42 | XMS_ITS | Encounter Summary ---
:1965 Author [facility] Address [address] [place] [address] Care Team Providers Name Role Phone Jose Holden MD Primary Care Provider [phone] Encounter Details Date Type Department Care Team [...] on filedocumented in this encounter Care Teams Infection Prevention Coordinator Relationship Specialty Start Date End Date Jose Holden MD PCP - General Otolaryngology 12/14/17 [place] [address] documented as of this encounter
--- OUTSIDE RECORDS SUMMARY | 2022-08-14 17:42 | XMS_ITS | Encounter Summary ---
:1965 Author Organization [facility] Address [address] [place] [address] Care Team Providers Name Role Phone Jose Holden MD Primary Care Provider [phone] Reason for Visit Reason Comments UPDATE Encounter Details Date Type Department Care Team Description 07/07/2018 Telephone [employer] Neuroscience Gume Pittman, [facility] [address] [place] [address] [place] [address] [phone] (Wo rk) Social History Tobacco Use Types [...] Arenas RN - 07/07/2018 12:44 PM CDT Hand Lens Polisher called patient, she states she has left neck/shoulder pain that did not improve after TPI's last week. Pt shares her right side of neck/shoulder is getting tight again and she is having headaches. Pt wants to proceed with occipital nerve blocks for her headache. Hand Lens Polisher offered patient appointment 07/10 which she accepted. [...] blocks instead in the future ??Barriers: 1. residential opioid use ??Plan: 1. Patient education: I [...] on filedocumented in this encounter Care Teams Reinforcing Steel Placer Relationship Specialty Start Date End Date Jose Holden MD PCP - General Otolaryngology 12/14/17 [place] [address] documented as of this encounter
--- OUTSIDE RECORDS SUMMARY | 2022-08-14 17:42 | XMS_ITS | Encounter Summary ---
:1965 [facility] Address [address] [place] [address] Care Team Providers Name Role Phone Jose Holden MD Primary Care Provider [phone] Reason for Referral Procedure/Equipment (Routine) - Closed Specialty Diagnoses / Procedures Referred By Contact Refer red To Contact Diagnoses Dizziness Concussion with loss of consciousness of 30 minutes or less, subsequent encounter Alyse Carias, PT [address] [place] [address] Referral ID Status Reason Start Date Expiration Date Visits Requ ested Visits Authorized [id number] Closed 03/06/2019 06/04/2020 20 20 Scheduling Instructions . Reason for Visit Reason Comments Concussion Therapies (Routine) - Closed Specialty Diagnoses / Procedures Referred By Contact Refer red To Contact Diagnoses Impairment of balance Dizziness Blanka Mead, BOG WORKER, CN P [address] [place] [address] Referral ID Status Reason Start Date Expiration Date Visits Requ ested Visits Authorized [id number] Closed 02/16/2019 04/17/2019 1 1 Encounter Details Date Type Department Care Team Description 03/06/2019 Office Visit Alyse Bee Dizziness (Primary Dx); [facility] A, PT Concussion with loss of consciousness of 30 minutes or less, subsequent encounter Physical Therapy [address] [place] [phone] Social History Tobacco Use Types Packs/Day Years [...] impacting her status (scheduled for surgery at [place] on 02/28/19). Tinnitus- scheduled for hearing assessment [...] ER right away. She was seen at [facility]. ?? She has a past medical history [...] limited function due to PMH Lives in [place]. Independent with ADLs, driving. Current Level of Function: Currently not-employed. Lives alone in apartment. Difficulty bending down She does endorse LOS in home setting. Previous Therapy for This Condition: PT for neck (01/23/19- refaxed orders) Patient Goals: Return to previous level of function and Increased function OBJECTIVE Posture/Observations: alert, oriented, cooperative. forward head posturing. Carrying multiple bags and able to machine operator hop picker from floor to chair without LOS. [...] within her allowable cervical ROM). Access Code: [email or web address] URL: [email or web address] Date: 03/06/2019 Prepared by: Alyse Carias Exercises Standing Gaze Stabilization with Head Rotation - 1-3 reps - 30-40 seconds - 3x daily - 7x weekly Education regarding Rule of 2 -Discussed option of closer location to her home yet noted she would be able to [place] [facility] Patient's Response to Therapy: Good Home Program [...] encounter documented in this encounter Care Teams General Farm Hand Relationship Specialty Start Date End Date Jose Holden MD PCP - General Otolaryngology 12/14/17 [facility] [place] [address] documented as of this encounter
--- OUTSIDE RECORDS SUMMARY | 2022-08-14 17:42 | XMS_ITS | Encounter Summary ---
:1965 Author Organization [facility] Address [address] [place] [address] Care Team Providers Name Role Phone Jose Holden MD Primary Care Provider [phone] Encounter Details Date Type Department Care Team Description 03/06/2019 Consent for [facility] Procedure/Treat [facility] Tnoy Alvarado MD BUPRENORPHINE ent Pain Management [address] TREATMENT [address] [place] [phone] Social History Tobacco Use Types Packs/Day Years [...] on filedocumented in this encounter Care Teams Dispatcher Chief Coal Slurry Relationship Specialty Start Date End Date Jose Holden MD PCP - General Otolaryngology 12/14/[address] [place] [address] documented as of this encounter
--- OUTSIDE RECORDS SUMMARY | 2022-08-14 17:42 | XMS_ITS | Encounter Summary ---
:1965 Author Organization [facility] Address [address] [place] [address] Care Team Providers Name Role Phone Jose Holden MD Primary Care Provider [phone] Reason for Visit Procedure/Equipment (Routine) - Incomplete Specialty Diagnoses / Procedures Referred By Contact Refer red To Contact Diagnoses S/P cervical spinal fusion Sirisha Rankin, Procedures XR Cervical Spine AP/Lat Upright PAIRER ODDS, FABRICATOR FOAM RUBBER [address] [place] [address] Referral ID Status Reason Start Date Expiration Date Visits V isits Requested Authorized [id number] Incomplete 04/05/2018 07/05/2019 1 1 Encounter Details Date Type Department Care Team Description 06/14/2018 Imaging [facility] Sneha Maher, S/P cervi [facility] spinal [facility] Sirisha Celaya, APR N, FABRICATOR FOAM RUBBER fusion Radiology [address] [place] [address] [place] [address] [phone] Social History Tobacco Use Types Packs/Day Years [...] PM CDT Narrative 06/14/2018 5:54 PM CDT [facility] XR CERVICAL SPINE AP/LAT [...] note might be different from the original. [facility] XR CERVICAL SPINE AP/LAT [...] soft tissue swelling. Remainder unchanged. Sirisha Maher PAIRER ODDS, FABRICATOR FOAM RUBBER RAD GD documented in this encounter Visit Diagnoses Diagnosis S/P cervical spinal fusion Arthrodesis status documented in this encounter Care Teams Mess Cook Relationship Specialty Start Date End Date Jose Holden MD PCP - General Otolaryngology 12/14/17 [place] [address] documented as of this encounter
--- OUTSIDE RECORDS SUMMARY | 2022-08-14 17:42 | XMS_ITS | Encounter Summary ---
:1965 Author [facility] Address [address] [place] [address] Care Team Providers Name Role Phone Jose Holden MD Primary Care Provider [phone] Encounter Details Date Type Department Care Team [...] on filedocumented in this encounter Care Teams Local Area Network Systems Adminstrator Relationship Specialty Start Date End Date Jose Holden MD PCP - General Otolaryngology 12/14/17 [address] [place] [address] documented as of this encounter
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
--- OUTSIDE RECORDS SUMMARY | 2022-08-14 17:42 | XMS_ITS | Encounter Summary ---
:1965 Author Organization [facility] Address [address], [place] [address] Care Team Providers Name Role Phone Jose Holden MD Primary Care Provider [phone] Reason for Visit Reason Comments Revisit occipital nerve block Encounter Details Date Type Department Care Team Description 07/10/2018 Office Visit [facility] occipital neuralgia (Primary Dx); [facility] Pain RMD Myalgia; Management [address] H/O cervical spinal arthrodesis [address] [place] [address] [phone] Social History Tobacco Use Types Packs/Day Years [...] treatment plan is, please contact me via [facility] online messaging or call the office at and ask to speak to a nurse. Tony Pittman MD Pain Medicine documented in this encounter Progress Notes Tony Pittman MD - 07/10/2018 3:45 PM CDT [facility] Pain Clinic Follow-up Visit 07/10/2018 Interim [...] Oxycodone 5 mg Q6H - Prescribes by [facility], has been taking [...] at a pain clinic in the past. [facility] physical therapy: Past [...] ??? medical cannabis patient certified Take 1 [place] by mouth . ??? naloxone (NARCAN) 4 [...] 0 No facility-administered medications prior to visit. [place] and [place] Prescription Monitoring Program reviewed Allergies: [...] in her mother. Social history:she lives in [place], [place].she is not currently working. Smokin/2 ppd. [...] of occipital nerve block today Barriers: 1. ferry terminal agent opioid use Plan: 1. Patient education: I [...] Pain Medicine Physical Medicine and Rehabilitation [facility] Pain Management This document serves as [...] status documented in this encounter Care Teams Dog Handler Or Trainer Relationship Specialty Start Date End Date Jose Holden MD PCP - General Otolaryngology 12/14/[address] [place], [place] [address] [address] documented as of this encounter
--- OUTSIDE RECORDS SUMMARY | 2022-08-14 17:42 | XMS_ITS | Encounter Summary ---
:1965 Author Organization [facility] Address [address] [place] [address] Care Team Providers Name Role Phone Jose Holden MD Primary Care Provider [phone] Encounter Details Date Type Department Care Team Description 02/06/2019 Consent for [facility] E[facility] Procedure/Treatm [facility] Tony Alvarado MD FOR TX/PROCEDURE ent Pain Management [address] [place] [address] [phone] Social History Tobacco Use Types Packs/Day Years [...] filedocumented in this encounter Care Teams Financial Recruiter Relationship Specialty Start Date End Date Jose Holden MD PCP - General Otolaryngology 12/14/[address] [place], [place] [id number] documented as of this encounter
--- OUTSIDE RECORDS SUMMARY | 2022-08-14 17:42 | XMS_ITS | Encounter Summary ---
:1965 Author Organization [facility] Address [address], [place] [address] Care Team Providers Name Role Phone Jose Holden MD Primary Care Provider [phone] Reason for Visit Procedure/Equipment (Routine) - Incomplete Specialty Diagnoses / Procedures Referred By Contact Refer red To Contact Diagnoses S/P cervical spinal fusion Sirisha Rankin, Procedures XR Cervical Spine AP/Lat Upright SLUBBER TENDER, FELT FINISHER [address] [place] [address] Referral ID Status Reason Start Date Expiration Date Visits V isits Requested Authorized [id number] Incomplete 10/10/2018 01/09/2020 1 1 Encounter Details Date Type Department Care Team Description 12/26/2018 Ancillary [facility] Sneha Maher, S/P cervi france Procedure [facility] Sirisha Celaya, SLUBBER TENDER, spinal fusion Radiology FELT FINISHER [address] [place] [address] [place], [place] [phone] [facility] Social History Tobacco Use Types Packs/Day Years [...] al Results for this AP/LAT UPRIGHT TIRE CORD WEAVER fusion procedure are in the results section. documented in this encounter Results XR Cervical Spine AP/Lat Upright (12/26/2018 1:44 PM TIRE CORD WEAVER) Anatomical Region Laterality Modality Spine, C-Spine, Neck Computed Radiograph y Specimen (Source) Anatomical Collection Method Collection Time Re ceived Time Location / / Volume Laterality 12/26/2018 1:44 PM TIRE CORD WEAVER Narrative 12/26/2018 3:41 PM TIRE CORD WEAVER EXAM: XR CERVICAL SPINE AP/LAT UPRIGHT [facility] DATE/TIME: 12/26/2018 1:44 PM INDICATION: [...] EXAM: XR CERVICAL SPINE AP/LAT UPRIGHT LOCATION: [facility] DATE/TIME: 12/26/2018 1:44 PM INDICATION: [...] C1-2 level on lateral view. Sirisha Maher SLUBBER TENDER, FELT FINISHER RAD GD documented in this encounter Visit Diagnoses Diagnosis S/P cervical spinal fusion Arthrodesis status documented in this encounter Care Teams Retail Marketing Coordinator Relationship Specialty Start Date End Date Jose Holden MD PCP - General Otolaryngology 12/14/17 [place] [address] documented as of this encounter
--- OUTSIDE RECORDS SUMMARY | 2022-08-14 17:42 | XMS_ITS | Encounter Summary ---
:1965 Author Organization [facility] Address [address] [place] [address] Care Team Providers Name Role Phone Jose Holden MD Primary Care Provider [phone] Encounter Details Date Type Department Care Team Description 12/26/2018 Consent for [facility]man, CONSENT FOR Procedure/[facility] Tony Alvarado MD PROCEDURE ent Pain Management [address] [place] [phone] Social History Tobacco Use Types Packs/Day Years [...] on filedocumented in this encounter Care Teams Counterperson Relationship Specialty Start Date End Date Jose Holden MD PCP - General Otolaryngology 12/14/[address] [place] [address] documented as of this encounter
--- OUTSIDE RECORDS SUMMARY | 2022-08-14 17:42 | XMS_ITS | Encounter Summary ---
:1965 Author Organization [facility] Address [address] [place] [address] Care Team Providers Name Role Phone Jose Holden MD Primary Care Provider [phone] Encounter Details Date Type Department Care Team Description 06/20/2018 Consent for [facility] Procedure/Treat [facility] Tony Alvarado MD FOR TX/PROCEDURE ent Pain Management [address] [place] [phone] Social History Tobacco Use Types Packs/Day Years [...] on filedocumented in this encounter Care Teams Boat Deckhand Relationship Specialty Start Date End Date Jose Holden MD PCP - General Otolaryngology 12/14/[address] [place], [place] [phone] documented as of this encounter
--- OUTSIDE RECORDS SUMMARY | 2022-08-14 17:42 | XMS_ITS | Encounter Summary ---
:1965 Author [facility] Address [address], [place] [address] Care Team Providers Name Role Phone Jose Holden MD Primary Care Provider [phone] Reason for Visit Reason Comments Revisit trigger point injections/occ ipital nerve blocks Encounter Details Date Type Department Care Team Description 03/06/2019 Office Visit [facility], Bilateral occ ipital neuralgia (Primary Dx); [facility] Carole Bowden Myalgia; Pain Management [address] Cervical vertebral fusion; [address] 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 Tony Pittman MD Pain Medicine documented in this encounter Progress Notes Tony Pittman MD - 03/06/2019 2:45 PM CDT [facility] Follow-up Visit 03/06/2019 Interim history: [...] Oxycodone 5 mg Q6H - Prescribes by [facility], has been taking [...] hydromorphone, fentanyl Other treatments have included: Angie oJrge Mosquera has been seen at a pain clinic in the past. [facility] physical therapy: Past [...] ??? medical cannabis patient certified Take 1 [place] by mouth . ??? naloxone (NARCAN) 4 [...] Gain No facility-administered medications prior to visit. [place] and [place] Prescription Monitoring Program reviewed Allergies: [...] in her mother. Social history:she lives in [place], [place].she is not currently working. Smokin/2 ppd. [...] limited. Significant posterior surgical deformity of neck. Senior Drupal Developer to palpation bilateral levator scapulae, splenius, trapezius [...] These are unchanged from previous. Barriers: 1. long-term opioid use Plan: 1. Patient education: I [...] myelopathy documented in this encounter Care Teams Duct Installer Relationship Specialty Start Date End Date Jose Holden MD PCP - General Otolaryngology 12/14/[address] [place] [address] documented as of this encounter
--- OUTSIDE RECORDS SUMMARY | 2022-08-14 17:42 | XMS_ITS | Encounter Summary ---
:1965 Author Organization [facility] Address [address] [place] [address] Care Team Providers Name Role Phone Jose Holden MD Primary Care Provider [phone] Reason for Visit Reason Comments Medication Request Encounter Details Date Type Department Care Team Description 12/08/2019 Telephone Careline Unknown, Physician Medication Request [address] [place], [place] [address] [place], [place] [phone] (Wo rk) Social History Tobacco Use Types [...] pain medication. Pt advised to surgeon at [facility]. ONAL DIRECTOR OF FINANCE documented in this encounter Plan of Treatment Not on filedocumented as of this encounter Visit Diagnoses Not on filedocumented in this encounter Care Teams Driller Operator Relationship Specialty Start Date End Date Jose Holden MD PCP - General Otolaryngology 12/14/17 [address] [place] [address] documented as of this encounter
--- OUTSIDE RECORDS SUMMARY | 2022-08-14 17:42 | XMS_ITS | Encounter Summary ---
:1965 Author Organization [facility] Address [address], [place] [address] Care Team Providers Name Role Phone Jose Holden MD Primary Care Provider [phone] Encounter Details Date Type Department Care Team Description 11/10/2018 Orders Only External to Pete Tamayo MD [address] [place], [place] [phone] (Wo rk) Social History Tobacco Use Types [...] 11/10/2018 12:00 AM R esults for this HYDROGRAPHIC ENGINEER procedure are i n the results section. documented in this encounter Results CT SCAN SPINE--SCAN (11/10/2018 12:00 AM HYDROGRAPHIC ENGINEER) Anatomical Region Laterality Modality Other Specimen (Source) Anatomical Location Collection Method / Collectio n Time Received Time / Laterality Volume 11/10/2018 Narrative This result has an attachment that is no t available. Pete Gonzalez MD DUMMY/OTHER/AR documented in this encounter Visit Diagnoses Not on filedocumented in this encounter Care Teams Tracer Bullet Section Supervisor Relationship Specialty Start Date End Date Jose Holden MD PCP - General Otolaryngology 12/14/17 [address] [place] [address] documented as of this encounter
--- OUTSIDE RECORDS SUMMARY | 2022-08-14 17:42 | XMS_ITS | Encounter Summary ---
:1965 [facility] Address [address], [place] [address] Care Team Providers Name Role Phone Jose Holden MD Primary Care Provider [phone] Reason for Visit Reason Comments Injection Encounter Details Date Type Department Care Team Description 09/04/2018 Telephone [facility] Pete Gonzalez MD Injection Center Neurosurgery/Ortho [address] [facility] Spine [place], [place] [address] [address] [place] [address] [phone] Social History Tobacco Use Types Packs/Day Years [...] 09/05/2018 10:13 AM CDT Per Sirisha Maher, FISH PACKER: cannot write letter. Okay for repeat bilateral [...] Cervicalgia documented in this encounter Care Teams Material Requirements Planning Manager Relationship Specialty Start Date End Date Jose Holden MD PCP - General Otolaryngology 12/14/17 [place] [id number] documented as of this encounter
--- OUTSIDE RECORDS SUMMARY | 2022-08-14 17:42 | XMS_ITS | Encounter Summary ---
:1965 [facility] Address [address] [place] [address] Care Team Providers Name Role Phone Jose Holden MD Primary Care Provider [phone] Reason for Referral Therapies (Routine) - Closed Specialty Diagnoses / Procedures Referred By Contact Refer red To Contact Diagnoses S/P cervical spinal fusion Pete Gonzalez MD [facility] [address] [place] [address] Referral ID Status Reason Start Date Expiration Date Visits Requ ested Visits Authorized [id number] Closed 12/26/2018 02/24/2019 1 1 Scheduling Instructions Your provider has recommended an appoint ment with a [facility] Physical Therapist. Please stop at the clinic check out desk for assistance with scheduling or if you prefer to call for your appointment you may call [facility] Outpatient Rehabilitation at [phone]. We suggest you call your [employer] health insurance company about your coverage and benefits for this appointment. MBLER ADJUSTER Reason for Visit Reason Comments Revisit Encounter Details Date Type Department Care Team Description 12/26/2018 Office Visit [facility] Pete Gonzalez, S/P miguelito al spinal [facility] fusion (Primary Dx) [facility] [address] [facility] [address] [place] [address] [place] [address] [phone] Social History Tobacco Use Types Packs/Day Years [...] Comments Blood Pressure 115/72 12/26/2018 1:48 PM ASSEMBLER ADJUSTER Pulse 70 12/26/2018 1:48 PM ASSEMBLER ADJUSTER Temperature 36.5 ??C (97.7 ??F) 12/26/2018 1:48 PM ASSEMBLER ADJUSTER Respiratory Rate - - Oxygen Saturation - - Inhaled Oxygen Concentration - - Weight 71.2 kg (157 lb) 12/26/2018 1:48 PM ASSEMBLER ADJUSTER Height 152.4 cm (5') 12/26/2018 1:48 PM ASSEMBLER ADJUSTER Body Mass Index 30.66 12/26/2018 1:48 PM ASSEMBLER ADJUSTER documented in this encounter Patient Instructions Patient [...] your understanding. Please call the Neurosurgery Center [phone] with any further questions or concerns or if your symptoms worsen. Thank you for coming to see us today. We are your partner. MBLER ADJUSTER documented in this encounter Progress Notes Pete [...] is prone to typos and grammatical errors. MBLER ADJUSTER documented in this encounter Plan of Treatment Scheduled Referrals Name Type Priority Associated Diagnoses Order S [facility] Physical Therapy Referral Routine S/P cervical spinal fusi on Ordered: 12/26/2018 documented as of this encounter Visit Diagnoses Diagnosis S/P cervical spinal fusion - Primary Arthrodesis status documented in this encounter Care Teams Dyer Assistant Relationship Specialty Start Date End Date Jose Holden MD PCP - General Otolaryngology 12/14/17 [place] [address] documented as of this encounter
--- OUTSIDE RECORDS SUMMARY | 2022-08-14 17:42 | XMS_ITS | Encounter Summary ---
:1965 [facility] Address [address] [place] [address] Care Team Providers Name Role Phone Jose Holden MD Primary Care Provider [phone] Reason for Visit Reason Comments Revisit trigger point injections Encounter Details Date Type Department Care Team Description 06/29/2018 Office Visit [facility] Myalgia (Primary Dx); [facility] Raul Alvarado MD Medical marijuana use; Management [address] H/O cervical spinal arthrodesis; [address] [place], [place] [address] [phone] Social History Tobacco Use Types Packs/Day Years [...] treatment plan is, please contact me via [employer] online messaging or call the office at and ask to speak to a nurse. Tony Pittman MD Pain Medicine documented in this encounter Progress Notes Tony Pittman MD - 06/29/2018 10:20 AM CDT Counts include 234 beds at the [facility] Follow-up Visit 06/29/2018 Interim [...] Oxycodone 5 mg Q6H - Prescribes by [facility], has been taking [...] at a pain clinic in the past. [facility] physical therapy: Past [...] anterior cervical fusion 2016 Dr. Ihsan Brooke, [facility] past surgical history reviewed with patient. [...] ??? medical cannabis patient certified Take 1 [place] by mouth . ??? naloxone (NARCAN) 4 [...] facility-administered medications prior to visit. [place] and [place] Prescription Monitoring Program reviewed Allergies: Allergies Allergen [...] in her mother. Social history:she lives in [place], [place].she is not currently working. Smokin/2 ppd. [...] blocks instead in the future Barriers: 1. watermaster opioid use Plan: 1. Patient education: I [...] MD Pain Medicine Physical Medicine and Rehabilitation Counts include 234 beds at the [facility] Pain Management This document serves as a record of services personally performed by Tony Pittman MD. It was created on his behalf by Gillian Harding, a trained bio medical technician. The creation of this record is based [...] disorder documented in this encounter Care Teams Stitch Rubber Relationship Specialty Start Date End Date Jose Holden MD PCP - General Otolaryngology 12/14/[address] [place] [address] documented as of this encounter
--- OUTSIDE RECORDS SUMMARY | 2022-08-14 17:42 | XMS_ITS | Encounter Summary ---
:1965 Author Organization [facility] Address [address] [place] [address] Care Team Providers Name Role Phone Jose Holden MD Primary Care Provider [phone] Encounter Details Date Type Department Care Team Description 06/29/2018 Consent for [facility] Procedure/Treat [facility] Tony Alvarado MD FOR TX/PROCEDURE ent Pain Management [address] [place] [phone] Social History Tobacco Use Types Packs/Day Years [...] filedocumented in this encounter Care Teams Patient Access Relationship Specialty Start Date End Date Jose Holden MD PCP - General Otolaryngology 12/14/[address] [place], [place] [phone] documented as of this encounter
--- OUTSIDE RECORDS SUMMARY | 2022-08-14 17:42 | XMS_ITS | Encounter Summary ---
:1965 Author Organization [facility] Address [address], [place] [address] Care Team Providers Name Role Phone Jose Holden MD Primary Care Provider [phone] Reason for Referral Therapies (Routine) - Closed Specialty Diagnoses / Procedures Referred By Contact Refer red To Contact Diagnoses S/P cervical spinal fusion Pete Gonzalez MD [address] [place] [address] Referral ID Status Reason Start Date Expiration Date Visits Requ ested Visits Authorized [id number] Closed 08/16/2018 10/15/2018 1 1 Scheduling Instructions [facility] provider has recommended an appoin tment with a [facility] Physical Therapist. Please stop at the clinic check out desk for assistance with scheduling or if you prefer to call for your appointment you may call [facility] Outpatient Rehabilitation at [phone]. We suggest you call your [facility] insurance company about your coverage and benefits for this appointment. Encounter Details Date Type Department Care Team Description 07/07/2018 Telephone [facility] Neuroscience Pete Gonzalez MD Center Neurosurgery/Ortho [address] [facility] Spine [place], [place] [address] [address] [place] [address] [phone] Social History Tobacco Use Types Packs/Day Years [...] Del Toro - 08/16/2018 1:41 PM CDT Veneer Drier contacted patient 08/16-faxed order to [facility] [phone] per patient request Chava Simon RN - [...] Diagnoses [facility] Referral Routine S/P cervical spinal fusi on Ordered: 08/16/2018 documented as of this encounter Visit Diagnoses Diagnosis S/P cervical spinal fusion - Primary Arthrodesis status documented in this encounter Care Teams Wine Bottle Inspector Relationship Specialty Start Date End Date Jose Holden MD PCP - General Otolaryngology 12/14/17 [place] [address] documented as of this encounter
--- OUTSIDE RECORDS SUMMARY | 2022-08-14 17:42 | XMS_ITS | Encounter Summary ---
:1965 Author Organization [facility] Address [address] [place] [address] Care Team Providers Name Role Phone Jose Holden MD Primary Care Provider [phone] Encounter Details Date Type Department Care Team Description 04/09/2019 Notes/Orders [facility] Neuroscience Jose Carias, Center Smash Piecer apy PT [address] [place] [address] [place] [address] [phone] (Wo rk) Social History Tobacco Use Types [...] CDT PHYSICAL THERAPY DISCHARGE NOTE Angie Mosquera [phone] Payor: MEDICARE / Plan: MEDICARE / Product [...] on filedocumented in this encounter Care Teams Doughnut Icer Relationship Specialty Start Date End Date Jose Holden MD PCP - General Otolaryngology 12/14/17 [place] [address] documented as of this encounter
--- OUTSIDE RECORDS SUMMARY | 2022-08-14 17:42 | XMS_ITS | Encounter Summary ---
:1965 Author Organization [facility] Address [address] [address] Care Team Providers Name Role Phone Jose Holden MD Primary Care Provider [phone] Reason for Referral Procedure/Equipment (Routine) - Closed Specialty Diagnoses / Procedures Referred By Contact Refer red To Contact Diagnoses Intractable acute post-traumatic headache Blanka Mead APRN, CN P [address] [place] [address] Referral ID Status Reason Start Date Expiration Date Visits Requ ested Visits Authorized [id number] Closed 02/16/2019 05/17/2020 1 1 Scheduling Instructions . herapies (Routine) - Closed Specialty Diagnoses / Procedures Referred By Contact Refer red To Contact Diagnoses Impairment of balance Dizziness Blanka Mead APRN, CN P [address] [place] [address] Referral ID Status Reason Start Date Expiration Date Visits Requ ested Visits Authorized [id number] Closed 02/16/2019 04/17/2019 1 1 Scheduling Instructions Your provider has recommended an appoint ment with a [facility] Physical Therapist. Please stop at the clinic check out desk for assistance with scheduling or if you prefer to call for your appointment you may call [facility] at [phone]. We suggest you call your [facility] insurance company about your coverage and benefits for this appointment. Reason for Visit Reason Comments Consult, New Patient Consult/Transfer Care (Routine) - Closed Specialty Diagnoses / Procedures Referred By Contact Refer red To Contact Diagnoses Traumatic brain injury, without loss of consciousness, initial encounter (HRC) Tony Pittman MD [address] [place] [address] Referral ID Status Reason Start Date Expiration Date Visits Requ ested Visits Authorized [id number] Closed 12/26/2018 03/26/2020 1 1 Encounter Details Date Type Department Care Team Description 02/16/2019 Office Visit [facility], Impairment of balance (Primary Dx); [facility] Blanka Coulter s; Physical Medicine NIKKY Chavez, Intractable acute post-traum atic headache [address] [facility] [place] [address] [address] [facility] [phone] [place] [address] Social History Tobacco Use Types [...] Body Mass Index 33.01 12/26/2018 1:48 PM WEB PORTAL DEVELOPER documented in this encounter Patient Instructions Patient [...] If you need to reschedule, please call [phone] as soon as you know you will not be able to make the appointment. If you have any questions or concerns, please call the clinic at [phone]. ?? If tests are needed, you will [...] treatment plan is please contact us at [phone] or send us a secure message via Skytide. If you need follow-up in the future, please call [phone] for an appointment. If you cannot get a time that satisfies you, please let us know what times work for you and we will do our best to accommodate you. Thank you for choosing Blanka Mead APRN, CNP and [facility]. documented in [...] right away. She was seen at [facility]. According to the note from [facility]: the patient fell approximately 20 hours before being seenon 11/10/2018 with a presentation of headache neck pain left shoulder pain left knee pain left hip pain out of proportion to the mechanism of injury. The patient's a 53-year-old female well-known to [facility] with multiple comorbid medical and psychosocial issues, [...] Dr. Bullard with neurosurgery at [facility]. She has a past medical history [...] anterior cervical fusion 2016 Dr. Ihsan Brooke, [facility] Family History: Family History Problem Relation [...] ??? medical cannabis patient certified Take 1 [place] by mouth . ??? naloxone (NARCAN) 4 [...] EXAM: XR CERVICAL SPINE AP/LAT UPRIGHT LOCATION: [facility] DATE/TIME: 12/26/2018 1:44 PM ?? INDICATION: [...] able to review her head CT from [facility] as well as her cervical spine CT. Findings obtained by Bernie on 11/10/2018 showed CSF spaces within normal [...] headache documented in this encounter Care Teams Senior Clinical Data Coordinator Relationship Specialty Start Date End Date Jose Holden MD PCP - General Otolaryngology 12/14/17 [facility] [place] [address] documented as of this encounter
--- OUTSIDE RECORDS SUMMARY | 2022-08-14 17:42 | XMS_ITS | Encounter Summary ---
:1965 Author Organization [facility] Address [address], [place] [address] Care Team Providers Name Role Phone Jose Holden MD Primary Care Provider [phone] Reason for Visit Reason Comments Revisit Bilateral cervical/thoracic trigger point injections Encounter Details Date Type Department Care Team Description 08/14/2018 Office Visit [facility] Frank occipital neuralgia (Primary Dx); [facility] Pain RMD Myalgia; Management [address] H/O cervical spinal arthrodesis [address] [place] [id number] Social History Tobacco Use Types Packs/Day Years [...] Pittman MD - 08/14/2018 3:00 PM CDT [facility] Follow-up Visit 08/14/2018 Interim history: [...] anterior cervical fusion 2017 Dr. Ihsan Brooke, [facility] past surgical [...] ??? medical cannabis patient certified Take 1 [place] by mouth . ??? naloxone (NARCAN) 4 [...] Gain No facility-administered medications prior to visit. [place] and [place] Prescription Monitoring Program reviewed Allergies: Allergies Allergen [...] in her mother. Social history:she lives in [place], [place].she is not currently working. Smokin/2 ppd. [...] of occipital nerve block today Barriers: 1. shelter opioid use Plan: 1. Patient education: I [...] MD Pain Medicine [facility] This document serves as a record of services personally performed by Tony Pittman MD. It was created on his behalf by Gillian Hardign, a trained medical transcription supervisor. The creation of this record is based [...] status documented in this encounter Care Teams Chief Revenue Officer Relationship Specialty Start Date End Date Jose Holden MD PCP - General Otolaryngology 12/14/17 [facility] [place] [address] documented as of this encounter
--- OUTSIDE RECORDS SUMMARY | 2022-08-14 17:42 | XMS_ITS | Encounter Summary ---
:1965 Author Organization [facility] Address [address] [place] [address] Care Team Providers Name Role Phone Jose Holden MD Primary Care Provider [phone] Reason for Visit Reason Comments Revisit repeat injections Occipital VS Trigger point Encounter Details Date Type Department Care Team Description 02/06/2019 Office Visit [facility] Pittman, Bilateral occ ipital neuralgia (Primary Dx); [facility] Carole Bowden Myalgia; Pain Management [address] Fibromyalgia; [address] [place], [place] Cervical vertebral fusion; [place] [address] Spondylosis of cervical region without m yelopathy or radiculopathy [phone] Social History Tobacco Use Types Packs/Day Years [...] treatment plan is, please contact me via [employer] online messaging or call the office at and ask to speak to a nurse. Tony Pittman MD Pain Medicine documented in this encounter Progress Notes Tony Pittman MD - 02/06/2019 2:30 PM CDT [facility] Follow-up Visit 02/06/2019 Interim history: [...] Oxycodone 5 mg Q6H - Prescribes by [facility], has been taking [...] at a pain clinic in the past. [facility] physical therapy: Past [...] ??? medical cannabis patient certified Take 1 [place] by mouth . ??? naloxone (NARCAN) 4 [...] Gain No facility-administered medications prior to visit. [place] and [place] Prescription Monitoring Program reviewed Allergies: Allergies Allergen [...] in her mother. Social history:she lives in [place], [place].she is not currently working. Smokin/2 ppd. [...] These are unchanged from previous. 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 Patient education: I [...] Medicine Physical Medicine and Rehabilitation [facility] Pain Management This note created [...] myelopathy documented in this encounter Care Teams Last Chalker Relationship Specialty Start Date End Date Jose Holden MD PCP - General Otolaryngology 12/14/[address] [place] [address] documented as of this encounter
--- OUTSIDE RECORDS SUMMARY | 2022-08-14 17:42 | XMS_ITS | Encounter Summary ---
:1965 Author Organization [facility] Address [address], [place] [address] Care Team Providers Name Role Phone Jose Holden MD Primary Care Provider Reason for Visit Reason Comments Forms Encounter Details Date Type Department Care Team Description 07/11/2018 Telephone [facility] Pete Gonzalez MD Forms Center [facility]Ortho [address] [facility] [place], [place] [address] [address] [place] [address] [phone] Social History Tobacco Use Types Packs/Day Years [...] on filedocumented in this encounter Care Teams Steel Crane Operator Relationship Specialty Start Date End Date Jose Holden MD PCP - General Otolaryngology 12/14/17 [place] [address] documented as of this encounter
--- OUTSIDE RECORDS SUMMARY | 2022-08-14 17:42 | XMS_ITS | Encounter Summary ---
:1965 Author Organization [facility] Address [address] [place] [address] Care Team Providers Name Role Phone Jose Holden MD Primary Care Provider [phone] Reason for Visit Reason Comments Revisit Bilateral cervical/thoracic trigger point injections Encounter Details Date Type Department Care Team Description 06/20/2018 Office Visit [facility] Myalgia (Primary Dx); [facility] Pain RMD H/O cervical spinal arthrodesis; Management [address] Cervical vertebral fusion; [address] [place], [place] Fibromyalgia; [place] [address] Tobacco use disorder; [phone] Status post tot al left knee replacement [...] medications, in ALL states. As laws can mash filter cloth changer time, one should review the state [...] treatment plan is, please contact me via 51fanli online messaging or call the office at [...] Oxycodone 5 mg Q6H - Prescribes by [facility], has been taking for [...] at a pain clinic in the past. [facility] physical therapy: Past Acupuncture: [...] facility-administered medications prior to visit. [place] and [place] Prescription Monitoring Program reviewed Allergies: [...] in her mother. Social history:she lives in [place], [place].she is not currently working. Smokin/2 ppd. [...] post total left knee replacement Barriers: 1. rn long term care opioid use Plan: 1. Patient education: I went over the above diagnoses and treatment plan with her and answered all of her questions. 2. Imaging review: None 3. Exercise program: Regular exercise and activity 4. Medications: No changes. Do not recommend watermelon inspector opioid use, continue to decrease use until [...] Medicine Physical Medicine and Rehabilitation [facility] This document serves as a record of services personally performed by Tony Pittman MD. It was created on his behalf by Gillian Harding, a trained medical sales associate. The creation of this record is based [...] replacement documented in this encounter Care Teams Storage Solutions Architect Relationship Specialty Start Date End Date Jose Holden MD PCP - General Otolaryngology 12/14/17 [facility] [place] [address] documented as of this encounter
--- OUTSIDE RECORDS SUMMARY | 2022-08-14 17:42 | XMS_ITS | Encounter Summary ---
:1965 [facility] Address [address] [place] [address] Care Team Providers Name Role Phone Jose Holden MD Primary Care Provider Reason for Visit Reason Comments UPDATE Pain Encounter Details Date Type Department Care Team Description 06/22/2018 [facility] Gume Pittman R, UPDATE; [facility] [address] [place] [address] [place] [address] [phone] (Wo rk) Social History Tobacco Use Types [...] Arenas RN - 06/26/2018 10:02 AM CDT Prosthetist called patient, notified info below. Prosthetist offered patient appt today however she cannot find a way to get to clinic today. Pt scheduled 06/29 which she accepted. oTny Pittman MD - 06/26/2018 9:53 AM CDT We can repeat trigger point injection if she would like. Ok to overbook for this afternoon. [place] Arenas RN - 06/23/2018 9:[address] Pittman please advise: pt states her pain returned post TPI's from 3 days ago. Prosthetist called patient, she states the day of [...] post total left knee replacement ??Barriers: 1. compound mixer opioid use ??Plan: 1. Patient education: I went over the above diagnoses and treatment plan with her and answered all of her questions. 2. Imaging review: None 3. Exercise program: Regular exercise and activity 4. Medications: No changes. Do not recommend shelter opioid use, continue to decrease use until [...] filedocumented in this encounter Care Teams Process Artist Relationship Specialty Start Date End Date Jose Holden MD PCP - General Otolaryngology 12/14/17 [place] [address] documented as of this encounter
--- OUTSIDE RECORDS SUMMARY | 2022-08-14 17:42 | XMS_ITS | Encounter Summary ---
:1965 Author Organization [facility] Address [address], [place] [address] Care Team Providers Name Role Phone Jose Holden MD Primary Care Provider [phone] Reason for Visit Reason Comments APPOINTMENT REQUEST Encounter Details Date Type Department Care Team Description 11/13/2018 Telephone [facility] Pete Gonzalez MD APPOINTMENT REQUEST [facility] [address] [place], [place] [address]E Neurosurgery/Ortho [place], [place] [address] [address] [place] [address] [phone] Social History Tobacco Use Types Packs/Day Years [...] Jana Marcos - 11/16/2018 3:46 PM CST Band Scroll Saw Operator spoke to the pt and helped schedule an appt with Dr. Gonzalez on 12/26/17 at 1:40PM. Pt was in agreement of date, time and location. Jana Marcos 11/16/2018, 3:46 PM MOTIVE REPAIRER DIESEL Chava Simon RN - 11/16/2018 1:15 PM CST Per Sirisha Rolandson Gunnar, PROGRAMMING DIRECTOR: patient can follow up with Dr. Gonzalez with repeat upright cervical XRs. Rachid: please call patient and assist in scheduling her for an appointment with Dr. Gonzalez at next available with XR Chava Simon RN 11/16/2018, 1:20 PM MOTIVE REPAIRER DIESEL Chava Simon RN - 11/16/2018 11:15 AM [...] Walker RN - 11/15/2018 11:21 AM CST [facility]- still have not received CD from [facility]. If patient calls back, please let her [...] plan? Chava Simon RN 11/13/2018, 9:12 AM MOTIVE REPAIRER DIESEL Michael Cruz - 11/13/2018 8:23 AM CST Patient called in requesting for an appointment with Dr. Gonzalez himself only and not APPs. She states she fell on ice last week 11/09/18 and went to [facility] to be evaluated. She reports [...] Gonzalez to ensure everything is well as [facility] is not theones who did surgery on her and cannot compare this to before and after surgery. Band Scroll Saw Operator called [facility] and spoke with Mandy in the film room. They are not able to push imaging but they can send a CD. Address was provided for her of mail stop [id number] [facility] Attn: Dr. Gonzalez. She states the report will also be included in the CD. She then transferred me to Medical Records. Band Scroll Saw Operator spoke with Shauna who states patient will need to sign an CODI to obtain ED note from 11/09/18 to be sent to us as they are not affiliated with [facility] system. Band Scroll Saw Operator reached patient and relayed she would [...] being sent. Michael Cruz 11/13/2018, 8:43 AM MOTIVE REPAIRER DIESEL documented in this encounter Plan of Treatment Not on filedocumented as of this encounter Visit Diagnoses Diagnosis S/P cervical spinal fusion - Primary Arthrodesis status documented in this encounter Care Teams Primary Education Professor Relationship Specialty Start Date End Date Jose Holden MD PCP - General Otolaryngology 12/14/17 [place] [address] documented as of this encounter
--- OUTSIDE RECORDS SUMMARY | 2022-08-14 17:43 | XMS_ITS | Encounter Summary ---
:1965 Author Organization [facility] Address [address] [place] [address] Care Team Providers Name Role Phone Jose Holden MD Primary Care Provider [phone] Reason for Referral Procedure/Equipment (Routine) - Closed Specialty Diagnoses / Procedures Referred By Contact Refer red To Contact Diagnoses Neck pain Pete Gonzalez MD [address] [place] [address] Referral ID Status Reason Start Date Expiration Date Visits Requ ested Visits Authorized [id number] Closed 06/14/2018 12/11/2018 1 1 Scheduling Instructions [...] [facility] [address] [place] [address] [place] 348666 Social History Tobacco Use Types Packs/Day Years [...] your understanding. Please call the Neurosurgery Center [phone] with any further questions or concerns or [...] Cervicalgia documented in this encounter Care Teams Broke Beater Relationship Specialty Start Date End Date Jose Holden MD PCP - General Otolaryngology 12/14/17 [place] [address] documented as of this encounter
--- OUTSIDE RECORDS SUMMARY | 2022-08-14 17:43 | XMS_ITS | Encounter Summary ---
:1965 Author [facility] Address [address], [place] [address] Care Team Providers Name Role Phone Jose Holden MD Primary Care Provider [phone] Reason for Visit Auth/Cert Specialty Diagnoses / [...] Expiration Date Visits Requ ested Visits Authorized [id number] 1 1 Encounter Details Date Type Department Care Team Description 02/20/2018 [facility] Pete Gonzalez MD [address] [place] [address] [place] [address] [phone] (Wo rk) Social History Tobacco Use Types [...] 12:36 PM CDT Fluoroscopy provided by a doctor of radiology. Exact fluoroscopy time is documented in end of exam information in EPIC Pete Gonzalez MD RAD GD documented in this encounter Visit Diagnoses Not on filedocumented in this encounter Care Teams Coal Passer Relationship Specialty Start Date End Date Jose Holden MD PCP - General Otolaryngology 12/14/[address] [place] [address] documented as of this encounter
--- OUTSIDE RECORDS SUMMARY | 2022-08-14 17:43 | XMS_ITS | Encounter Summary ---
:1965 [facility] Address [address], [place] [address] Care Team Providers Name Role Phone Jose Holden MD Primary Care Provider [phone] Reason for Visit Auth/Cert Specialty Diagnoses / [...] Expiration Date Visits Requ ested Visits Authorized [id number] 1 1 Encounter Details Date Type Department Care Team Description 02/21/2018 [facility] Pete Gonzalez MD [address] [place] [address] [place] [address] [phone] (Wo rk) Social History Tobacco Use Types [...] on filedocumented in this encounter Care Teams Volcanologist Relationship Specialty Start Date End Date Jose Holden MD PCP - General Otolaryngology 12/14/[address] [place] [address] documented as of this encounter
--- OUTSIDE RECORDS SUMMARY | 2022-08-14 17:43 | XMS_ITS | Encounter Summary ---
:1965 Author Organization [facility] Address [address] [address] Care Team Providers Name Role Phone Jose Holden MD Primary Care Provider [phone] Reason for Visit Procedure/Equipment (Routine) - Incomplete Specialty Diagnoses / Procedures Referred By Contact Refer red To Contact Diagnoses Cervical spondylosis with radiculopathy (HRC) Sneha Maher, Sirisha Celaya, Procedures XR Cervical Spine AP/Lat Upright SPEECH THERAPIST EARLY INTERVENTION, TOP KNITTER [address] [place] [address] Referral ID Status Reason Start Date Expiration Date Visits V isits Requested Authorized [id number] Incomplete 02/21/2018 05/23/2019 1 1 Encounter Details Date Type Department Care Team Description 04/05/2018 Imaging [facility] Sneha Maher, Cervical spondylosis [facility] Sirisha Celaya, APR N, TOP KNITTER with radiculopathy Radiology [address] [place] [address] [phone] (Wo rk) Social History Tobacco Use Types [...] Anatomic alignment. Shoulder prosthesis. Sirisha Yomi Maher SPEECH THERAPIST EARLY INTERVENTION, TOP KNITTER RAD GD documented in this encounter Visit Diagnoses Diagnosis Cervical spondylosis with radiculopathy (HRC) Cervical spondylosis with myelopathy documented in this encounter Care Teams Chief Clinical Officer Relationship Specialty Start Date End Date Jose Holden MD PCP - General Otolaryngology 12/14/[address] [place], [place] [address] [address] documented as of this encounter
--- OUTSIDE RECORDS SUMMARY | 2022-08-14 17:43 | XMS_ITS | Encounter Summary ---
:1965 Author Organization [facility] Address [address] [address] Care Team Providers Name Role Phone Jose Holden MD Primary Care Provider [phone] Reason for Visit Auth/Cert Specialty Diagnoses / [...] Expiration Date Visits Requ ested Visits Authorized [id number] 1 1 Encounter Details Date Type Department Care Team Description 02/20/2018 [facility] Pete Gonzalez MD [address] [place] [address] [place] [address] [phone] (Wo rk) Social History Tobacco Use Types [...] 12:45 PM CDT Fluoroscopy provided by a ophthalmic medical technologist. Exact fluoroscopy time is documented in end of exam information in EPIC Pete Gonzalez MD RAD GD documented in this encounter Visit Diagnoses Not on filedocumented in this encounter Care Teams Doctor'S Assistant Relationship Specialty Start Date End Date Jose Holden MD PCP - General Otolaryngology 12/14/17 [facility] [place] [place] [address] documented as of this encounter
--- OUTSIDE RECORDS SUMMARY | 2022-08-14 17:43 | XMS_ITS | Encounter Summary ---
:1965 Author [facility] Address [address], [place] [address] Care Team Providers Name Role Phone Jose [...] on filedocumented in this encounter Care Teams Wholesale And Retail Merchant Relationship Specialty Start Date End Date Jose Holden MD PCP - General Otolaryngology 12/14/17 [place] [address] documented as of this encounter
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
--- OUTSIDE RECORDS SUMMARY | 2022-08-14 17:43 | XMS_ITS | Encounter Summary ---
:1965 Author Organization [facility] Address [address] [address] Care Team Providers Name Role Phone Jose Holden MD Primary Care Provider Reason for Visit Reason Comments [facility] Encounter Details Date Type Department Care Team Description 03/01/2018 Telephone [facility] Pete Gonzalez MD [facility] [address] [facility] Neuro[facility]/Ortho [address] [place], [place] [address] [address] [place] [address] [phone] Social History Tobacco Use Types Packs/Day Years [...] she should go to the ED in [place]? Please review and advise. Chantel Angela 03/01/2018, 11:15 AM documented in this encounter Plan of Treatment Not on filedocumented as of this encounter Visit Diagnoses Not on filedocumented in this encounter Care Teams Systems Analysis Manager Relationship Specialty Start Date End Date Jose Holden MD PCP - General Otolaryngology 12/14/17 [facility] [place] [address] documented as of this encounter
--- OUTSIDE RECORDS SUMMARY | 2022-08-14 17:43 | XMS_ITS | Encounter Summary ---
:1965 [facility] Address [address], [place] [address] Care Team Providers Name Role Phone Jose Holden MD Primary Care Provider [phone] Reason for Referral Procedure/Equipment (Routine) - Incomplete Specialty Diagnoses / Procedures Referred By Contact Refer red To Contact Diagnoses Cervical spondylosis with radiculopathy (HRC) Sirisha Rankin, Procedures XR Cervical Spine AP/Lat Upright KALPANA SHER [address] [place] [address] Referral ID Status Reason Start Date Expiration Date Visits V isits Requested Authorized [id number] Incomplete 02/21/2018 05/23/2019 1 1 (Routine) Specialty Diagnoses / Procedures Referred By Contact Refer red To Contact Sirisha Rankin APRN, CNP [address] [place] [address] Referral ID Status Reason Start Date Expiration Date Visits Requ ested Visits Authorized (Routine) - Incomplete Specialty Diagnoses / Procedures Referred By Contact Refer red To Contact Procedures Marky Gonzalez MD XR C-Arm 0-30 Minutes [address] [place] [address] Referral ID Status Reason Start Date Expiration Date Visits V isits Requested Authorized [id number] Incomplete 02/20/2018 05/22/2019 1 1 Procedure/Equipment (Routine) - Incomplete Specialty Diagnoses / Procedures Referred By Contact Refer red To Contact Procedures Lois Pham, STEPHANIE XR Cervical Spine AP/Lat [address] [place], [place] [address] Referral ID Status Reason Start Date Expiration Date Visits V isits Requested Authorized [id number] Incomplete 02/20/2018 05/22/2019 1 1 (Routine) - Incomplete Specialty Diagnoses / Procedures Referred By Contact Refer red To Contact Procedures Marky Gonzalez MD XR C-Arm 30-[address] [place] [address] XR C-Arm 0-30 Minutes [place], [place] [address] Referral ID Status Reason Start Date Expiration Date Visits V isits Requested Authorized [id number] Incomplete 02/20/2018 05/22/2019 1 1 (Routine) - Incomplete Specialty Diagnoses / Procedures Referred By Contact Refer red To Contact Procedures Marky Gonzalez MD XR C-Arm 2.5-[address] [place] [address] Referral ID Status Reason Start Date Expiration Date Visits V isits Requested Authorized [id number] Incomplete 02/20/2018 05/22/2019 1 1 Reason for [...] Expiration Date Visits Requ ested Visits Authorized [id number] 1 1 Encounter Details Date Type Department Care Team Description 02/20/2018 - [facility] Marky Gonzalez, Cervical spondylosis with ra diculopathy (Primary Dx); 02/23/2018 Encounter [address] Ervin MD Cervical vertebral fusion; [place], [place] [address] [place] 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 [...] 9.4 - 12.4 fl Narrative Performed at [facility], [address] [place] [address] Physical Exam: BP 124/78 Pulse 74 Temp [...] in strength to your extremeties. Neurosurgery clinic [phone]. If it is after hours, please call [...] RN on 03/07 at 11AM at 295 [facility], 2nd floor. 2. Follow up with Dr. Gonzalez/Lois Pham PA-C/Sirisha Maher NP on 04[facility]00PM [facility] Patient also instructed to call clinic at [phone] or hospital for any questions or concerns. Patient verbalizes understanding and states no further questions at this time. 3. Follow up with PCP for any medical issues Total time spent at the time of discharge was 30 minutes Sirisha Maher APRN, CNP [facility]#[phone] documented in this encounter Discharge Instructions Discharge InstructionsDonna Ellis RN - 02/23/2018 10:42 AM CDT Hospital Contact Information [address] [address] General Information Discharging physician: Dr. Gonzalez [facility] Emergency & Urgently Needed Care: For emergencies call 911 and/or get medical help right away. If you are a [facility] member and have medical needs after clinic hours you may call the [facility] [phone] or . Fall Prevention Recommendations ??? Follow [...] of Report --- Sneha Maher, Sirisha Celaya, ENTERPRISE APPLICATION DEVELOPER, SECONDARY EDUCATION PROFESSOR - 02/23/2018 9:02 AM CDT Neurosurgery Progress [...] Dc home today ?? Sirisha Maher, NIKKY, SECONDARY EDUCATION PROFESSOR 02/23/2018, 9:02 AM Neurosurgery Pgr#[phone] Jolene Kaur PA-C - 02/22/2018 12:45 PM [...] Lois Pham PA-C, 02/22/2018, 9:05 AM Neurosurgery [phone] He Reyes MD - 02/22/2018 8:29 AM [...] He Reyes M.D. [facility] [phone] INTERVAL HISTORY: She started tizanidine last night [...] 02/22/18 0743 Current Outpatient Prescriptions Ordered in [facility] Medication Sig Dispense Refill ??? sennosides-docusate [...] TIME SPENT: 35 minutes including 50% time vtiq-pi-jypq time counseling her about her diagnosis and treatment options, and coordinating care with the primary team. DECISION-MAKING: The level of decision-making in this case is high/complex due to the complexity of medical problems, acute/chronic pain, opioid analgesia issues, and behavioral factors. He Reyes M.D. Brooklyn Whittington - 02/21/2018 1:47 PM CDT [facility] Care Management Screening Admission [...] She see Dr Dr Estephanie Franz at [facility]. No DC needs anticipated. I verified the demographics on the face sheet for the correct address, phone number, emergency contact and PCP information. Brooklyn Whittington RN CM [phone] Lois Pham PA-C - 02/21/2018 9:23 AM CDT Neurosurgery Progress Note Date of service: 02/21/2018 Subjective: Feels sore. Upset she did not have NAIL POLISH BRUSH MACHINE FEEDER overnight. Wants to go smoke. Wants to [...] there were a couple of options including NAIL POLISH BRUSH MACHINE FEEDER vs IV pain medications for post op pain control, and rationale for non NAIL POLISH BRUSH MACHINE FEEDER at this time. Did discuss that would not recommend DC as drain still has high output. Upright xrays prior to DC Up with assistance Continue hemovac until <30/shift Soft collar when OOB, PRN in bed for comfort PT/OT Dispo: Anticipate home in next 1-2 days pending drain output Lois Pham PA-C, 02/21/2018, 9:23 AM Neurosurgery [phone] He Reyes MD - 02/20/2018 1:[address] PM [address] Note from Dr. Covarrubias on 02/13/18: ? 1. On the day of surgery please order an Inpatient pain consult 2. Ketamine 5mg/h during surgery ?? Recommendations for opioids: ?? If using a NAIL POLISH BRUSH MACHINE FEEDER: No oral opioids Start a NAIL POLISH BRUSH MACHINE FEEDER pump with Dilaudid continuous IV infusion at a basal rate of 0.1 mg/hr with NAIL POLISH BRUSH MACHINE FEEDER boluses of 0.2-0.4 mg every 10 minutes. ?? If not using a NAIL POLISH BRUSH MACHINE FEEDER: Start dilaudid 2-4mg q3h prn (alternatively can [...] Pham PA-C - 02/20/2018 3:24 PM CDT [facility] Brief Operative Progress Note Surgery Date: 02/20/2018 Surgeon(s) and Role: * Marky Gonzalez MD - Primary PHYSICIAN [address] SQL DEVELOPER-Meka Pham Pre-op Diagnosis: * Cervical spondylosis with [...] The procedure was medically necessary for an case assistant because Dr. Gonzalez needed the operative [...] Lois Pham PA-C, 02/20/2018, 3:25 PM Neurosurgery [phone] Marky Gonzalez MD - 02/20/2018 12:00 AM CDT ANGIE BENDER CSN: [id number] OPERATIVE REPORT DATE OF SURGERY: 02/20/2018 : 1965 SURGEON: MARKY GONZALEZ MD [address] SQL DEVELOPER: Lois Pham PA-C. PREOPERATIVE DIAGNOSES: 1. Status [...] performing all critical portions. MD YOLANDE COLEMAN/ALESSANDRO /[id number] cc: MARKY GONZALEZ MD documented in this [...] the risk. She has been on these rat exterminator, desires to eventually come off. She also [...] He Reyes M.D. [facility] [phone] HISTORY OF PRESENT ILLNESS: Per Chart Review: [...] headache Opioid prescriber: Rosetta Martin-LEDY Jerry MD-valium DIRECTOR OF GOVERNMENT SALES database review: Risk Factors: History of substance [...] Lois Pham PA-C ??? glucose-ascorbic acid (aka [id number]) chewable tablet 4 Tab 4 Tab Oral [...] TIME SPENT: 70 minutes including 50% time ybez-ee-qtbi time counseling her about her diagnosis and treatment options, and coordinating care with the primary team. DECISION-MAKING: The level of decision-making in this case is high/complex due to the complexity of medical problems, acute/chronic pain, opioid analgesia issues, and behavioral factors. documented in this encounter Miscellaneous Notes OR Nursing - Monica Pate RN - 02/20/2018 2:49 PM CDT [facility] Progress Note Patient Name: Angie [...] failure. Anatomic alignment. Shoulder prosthesis. Sirisha Maher ENTERPRISE APPLICATION DEVELOPER, SECONDARY EDUCATION PROFESSOR RAD GD (ABNORMAL) Complete Blood Count-No Diff (02/22/2018 12:36 PM CDT) P athologist Signature WBC 10.2 4.0 - 11.0 [facility] k/ul HOSPITAL RBC 3.36 (L) 4.0 - 5.2 [facility] M[facility]ul [facility] Hemoglobin 11.1 (L) 12.0 - 16.0 [facility] g/dl HOSPITAL HCT 33.2 (L) 36.0 - 46.0 [facility] MCV 98.8 80 - 100 fl [facility] MCH 33.0 26 - 34 pg [facility] MCHC 33.4 32 - 36 [facility] g/dl HOSPITAL RDW 14.4 11.5 - 14.5 [facility] Platelets 183 150 - 450 [facility] k/[facility] MPV 10.6 9.4 - 12.4 [facility] Specimen Anatomical Collection Method Collection Time Receive d Time (Source) Location / / Volume Laterality 02/22/2018 12:36 02/22/2018 PM CDT 12:37 PM CDT Narrative [facility] - 02/22/2018 12:46 PM C DT Performed at [facility] , [address] [place] [address] Lois Pham PA-C LAB_1 Performing Organization Address City/State/ZIP Code Phon e Number [id number] [place] [address] [phone] XR Cervical Spine AP/Lat Upright (02/21/2018 9:50 [...] Organization Address City/State/ZIP Code Phon e Number [address] [address], [facility] [phone] (ABNORMAL) Basic Metabolic Panel (02/21/2018 7:12 AM CDT) athologist Signature Sodium 138 136 - 145 [facility] mmol/L [facility] Potassium 3.9 3.5 - 5.1 [facility] mmol/L [facility] Chloride 111 (H) 98 - 109 [facility] mmol/L [facility] CO2 20 20 - 29 [facility] mmol/L [facility] Anion Gap 7 7 - 16 [facility] (calc.) mmol/L [facility] Glucose 117 70 - 180 [facility] mg/dl HOSPITAL Calcium 8.3 (L) 8.4 - 10.2 [facility] mg/dl [facility]OSPITAL BUN 14 7 - 26 [facility] mg/dl [facility] Creatinine 0.63 0.55 - [facility] 1.02 mg/dl HOSPITAL GFR, Estimated >60 >60 [facility] ml/min/1.7 [facility] 3m2 GFR, Est., If >60 >60 [facility] Black ml/min/1.7 [facility] 3m2 Specimen Anatomical Collection Method Collection Time Receive d Time (Source) Location / / Volume Laterality 02/21/2018 7:12 AM 8 7:13 CDT AM CDT Narrative [facility] - 02/21/2018 7:47 AM CD T Performed at [facility] , [address] [place] [address] Lois Pham PA-C LAB_1 Performing Organization Address City/State/[place] [address] [address], [facility] (ABNORMAL) Hemogram with Plts (02/21/2018 7:12 AM CDT) athologist Signature WBC 10.0 4.0 - 11.0 [facility] RBC 3.29 (L) 4.0 - 5.2 [facility] Hemoglobin 10.7 (L) 12.0 - 16.0 [facility] g/dl [facility] HCT 32.2 (L) 36.0 - 46.0 [facility] MCV 97.9 80 - 100 [facility] MCH 32.5 26 - 34 pg [facility] MCHC 33.2 32 - 36 [facility] g/dl [facility] RDW 13.9 11.5 - 14.5 [facility] Platelets 186 150 - 450 [facility] MPV 10.3 9.4 - 12.4 [facility] Specimen Anatomical Collection Method Collection Time Receive d Time (Source) Location / / Volume Laterality 02/21/2018 7:12 AM 8 7:13 CDT AM CDT Narrative [facility] - 02/21/2018 7:26 AM CD T Performed at [facility] , [address] [place] [address] Lois Pham PA-C LAB_1 Performing Organization Address City/[facility]/ZIP Code Phon e Number [address] [address], [facility] Glucose, Whole Blood POC (02/20/2018 11:20 PM CDT) P athologist Signature Glucose, Whole 140 70 - 180 [facility] Blood mg/dl [facility]OSPITAL Comment: Point of Care Testing No Action Required Specimen Anatomical Collection Method Collection Time Receive d Time (Source) Location / / Volume Laterality 02/20/2018 11:20 02/20/2018 PM CDT 11:26 PM CDT Marky Gonzalez MD LAB_1 Performing Organization Address [facility] Phon e Number [address] [address], [place] Glucose, Whole Blood POC (02/20/2018 5:05 PM CDT) P athologist Signature Glucose, Whole 145 70 - 180 [facility] Blood mg/dl [facility]OSPITAL Comment: Point of Care Testing No Action Required Specimen Anatomical Collection Method Collection Time Receive d Time (Source) Location / / Volume Laterality 02/20/2018 5:05 PM 8 5:25 CDT PM CDT Marky Gonzalez MD LAB_1 Performing Organization Address City/[facility]/ZIP [facility] Phon e Number [address] [address], [place] Glucose, Whole Blood POC (02/20/2018 3:45 [...] Organization Address City/State/ZIP Code Phon e Number [address] [address], [place] [phone] XR C-Arm 0-30 Minutes (02/20/2018 2:05 PM CDT) Anatomical Region Laterality Modality Other Specimen (Source) Anatomical Location Collection Method / Collectio n Time Received Time / Laterality Volume Narrative 02/20/2018 2:06 PM CDT Fluoroscopy provided by a lead nuclear medicine technologist. Exact fluoroscopy time is documented in end of exam information in EPIC Marky Gonzalez MD RAD GD XR C-Arm 2.5-3 Hours (02/20/2018 12:45 PM CDT) Anatomical Region Laterality Modality Other Specimen (Source) Anatomical Location Collection Method / Collectio n Time Received Time / Laterality Volume Narrative 02/20/2018 12:45 PM CDT Fluoroscopy provided by a lead nuclear medicine technologist. Exact fluoroscopy time is documented in end of exam information in EPIC Marky Gonzalez MD RAD GD XR C-Arm 30-59 Minutes (02/20/2018 12:36 PM CDT) Anatomical Region Laterality Modality Other Specimen (Source) Anatomical Location Collection Method / Collectio n Time Received Time / Laterality Volume Narrative 02/20/2018 12:36 PM CDT Fluoroscopy provided by a lead nuclear medicine technologist. Exact fluoroscopy time is documented in [...] Organization Address City/State/ZIP Code Phon e Number [address] [address], [place] [phone] Glucose, Whole Blood POC (02/20/2018 6:25 AM CDT) athologist Signature Glucose, Whole 90 70 - 180 [facility] Blood mg/dl [facility] Specimen Anatomical Collection Method Collection Time Receive d Time (Source) Location / / Volume Laterality 02/20/2018 6:25 AM 8 6:34 CDT AM CDT Marky Gonzalez MD LAB_1 Performing Organization Address City/[facility]/ZIP [facility] Phon e Number [address] [address], [facility] ABO/RH(D) Retype (02/20/2018 6:22 AM CDT) athologist Signature ABO/RH(D) A NEGATIVE [facility] Specimen Anatomical Collection Method Collection Time Receive d Time (Source) Location / / Volume Laterality 02/20/2018 6:22 AM 8 6:25 CDT AM CDT Narrative [facility] - 02/20/2018 7:06 AM CD T Performed at [facility] , [address] [place] [address] Marky Gonzalez MD LAB_1 Performing Organization Address [facility] Phon e Number [address] [address], [facility] INR/Protime (PT/INR) (02/20/2018 6:08 AM CDT) athologist Signature Protime 13.0 12.0 - 14.5 [facility] INR 1.0 0.9 - 1.1 [facility] Specimen Anatomical Collection Method Collection Time Receive d Time (Source) Location / / Volume Laterality 02/20/2018 6:08 AM 8 6:22 CDT AM CDT Narrative [facility] - 02/20/2018 6:40 AM CD T Performed at [facility] , [address] [place] [address] Sirisha Maher APRN, SECONDARY EDUCATION PROFESSOR LAB_1 Performing Organization Address [facility]/ZIP [facility] Phon e Number [address] [address], [facility] [phone] Hemogram with Platelets (02/20/2018 6:08 AM CDT) athologist Signature WBC 6.7 4.0 - 11.0 [facility] k/ul [facility] RBC 4.13 4.0 - 5.2 [facility] M/ul [facility] Hemoglobin 13.5 12.0 - 16.0 [facility] g/dl [facility] HCT 39.8 36.0 - 46.0 [facility] MCV 96.4 80 - 100 fl [facility] MCH 32.7 26 - 34 pg [facility] MCHC 33.9 32 - 36 [facility] g/dl HOSPITAL RDW 13.8 11.5 - 14.5 [facility] Platelets 245 150 - 450 [facility] k/[facility] MPV 10.6 9.4 - 12.4 [facility] Specimen Anatomical Collection Method Collection Time Receive d Time (Source) Location / / Volume Laterality 02/20/2018 6:08 AM 8 6:22 CDT AM CDT Narrative [facility] - 02/20/2018 6:32 AM CD T Performed at [facility] , [address] [place] [address] Sirisha Maher APRN, SECONDARY EDUCATION PROFESSOR LAB_1 Performing Organization Address [facility]/State/[place] [address] (ABNORMAL) Basic Metabolic Panel (02/20/2018 6:08 AM CDT) athologist Signature Sodium 139 136 - 145 [facility] mmol/L [facility] Potassium 4.4 3.5 - 5.1 [facility] mmol/L [facility] Comment: Specimen Slightly Hemolyzed Hemolysis May Affect Result Chloride 109 98 - 109 mmol/L [facility] AL CO2 18 (L) 20 - 29 mmol/L [facility] L Anion Gap (calc.) 12 7 - 16 mmol/L [facility] Glucose 96 70 - 180 mg/dl [facility] L Calcium 9.4 8.4 - 10.2 mg/dl [facility] BUN 14 7 - 26 mg/dl [facility] Creatinine 0.69 0.55 - 1.02 mg/dl [facility]OS PITAL GFR, Estimated >60 >60 ml/min/1.73m2 [facility] GFR, Est., If Black >60 >60 ml/min/1.73m2 [facility] Specimen Anatomical Collection Method Collection Time Receive d Time (Source) Location / / Volume Laterality 02/20/2018 6:08 AM 8 6:22 CDT AM CDT Narrative [facility] - 02/20/2018 6:52 AM CD T Performed at [facility] , [address] [place] [address] Sirsiha Maher APRN SECONDARY EDUCATION PROFESSOR LAB_1 Performing Organization Address City/[facility] Phon e Number [address] [address], [facility] [phone] aPTT (Activated Partial Thromboplastin Time) (02/20/2018 6:08 AM CDT) P athologist Signature PTT 26.8 24.0 - 37.0 [facility] Specimen Anatomical Collection Method Collection Time Receive d Time (Source) Location / / Volume Laterality 02/20/2018 6:08 AM 8 6:22 CDT AM CDT Narrative [facility] - 02/20/2018 6:40 AM CD T Performed at [facility] , [address] [place] [address] Sirisha Maher APRN, SECONDARY EDUCATION PROFESSOR LAB_1 Performing Organization Address City/[facility] Phon e Number [address] [address], [facility] ABO Rh & Antibody Screen (Type & Screen) (02/20/2018 6:07 AM CDT) Patholo gist Method Time Signature Crossmatch 02/23/2018 [facility] Expires [facility] ABO/RH(D) A NEGATIVE [facility] Antibody NEGATIVE [facility] HOSPITAL Specimen Anatomical Collection Method Collection Time Receive d Time (Source) Location / / Volume Laterality 02/20/2018 6:07 AM 8 6:22 CDT AM CDT [facility] - 02/20/2018 7:10 AM CD T Performed at [facility] , [address] [place] [address] Sirisha Maher APRN, CNP LAB_1 Performing Organization Address City/State/ZIP Code Phon e Number [address] [address], [facility] EKG IP (02/20/2018 12:00 AM CDT) [...] Segura RN - 02/23/2018 9:57 AM CDT [facility] Plan of Care Note Assessment: [...] Carbajal RN - 02/23/2018 7:43 AM CDT [facility] Plan of Care Note Assessment: [...] Rico RN - 02/22/2018 10:15 PM CDT [facility] Plan of Care Note Assessment: [...] Rico RN - 02/22/2018 4:00 PM CDT [facility]. MD Notified Note Name of MD notified: Ankit Time of MD notification: 1600 hours and 1 minute Reason: Pt.asking for valium now and current order for HS prn. [place]juan [place]. [id number]. Response: Valium one time dose now and HS prn. Shawn Butcher RN --- End of Report --- Plan of Care - Alec Gifford RN - 02/22/2018 1:57 PM CDT [facility] Plan of Care Note Assessment: [...] Lundberg RN - 02/22/2018 2:32 AM CDT [facility] Plan of Care Note Assessment: [...] Orellana RN - 02/22/2018 12:33 AM CDT [facility] Plan of Care Note Assessment: [...] Gifford RN - 02/21/2018 1:41 PM CDT [facility] Plan of Care Note Assessment: [...] Lundberg RN - 02/21/2018 4:56 AM CDT [facility]. MD Notified Note Name of MD notified: Neurosurg Time of MD notification: 0400 hours and 55 minutes Reason: [id number]- Pt reporting oral/IV pain meds ineffective. Pt upset, req further intervention. Please advise. Thanks. Response: Discussed w/ neurosurg. To be addressed in AM and PRNs to continue to be administered as able. Anita Lundberg RN --- End of Report --- Plan of Care - Anita Lundberg RN - 02/21/2018 2:26 AM CDT [facility] Plan of Care Note Assessment: [...] Control/Comfort Level unable to achieve outcome Comments: [facility] Plan of Care Note Assessment: posterior neck pain worst than anterior Plan: IHR, assessment, pain control Subjective: I thought that I was going to be on a dilaudid drip Objective: Pt angry that she was not on a NAIL POLISH BRUSH MACHINE FEEDER pump, Dilaudid PO and IV given q3h, [...] PM CDT 50 mcg 25-50 mcg, Intravenous, [id number], Pain, Starting on Tue02/20/18 at 1451, Until [...] Provider: Shawn Mcdaniels RN)2052 (Given - Provider: Shanw Patton RN) methocarbamol (ROBAXIN) tablet 500 mg [...] HS
documented in this encounter Care Teams Box Estimator Relationship Specialty Start Date End Date Jose Holden MD PCP - General Otolaryngology 12/14/17 [place] [address] documented as of this encounter
--- OUTSIDE RECORDS SUMMARY | 2022-08-14 17:43 | XMS_ITS | Encounter Summary ---
:1965 Author Organization [facility]ly [facility] Address [address], [place] [address] Care Team Providers Name Role Phone Jose Holden MD Primary Care Provider Reason for Visit Reason Comments POST-OP,EXAM Encounter Details Date Type Department Care Team Description 03/07/2018 Office Visit [facility] Denis P ostop check (Primary Center Neurosurgery/Ortho Dx ) Spine [address] [place], [place] [id number] Social History Tobacco Use Types Packs/Day Years [...] understanding. Please call the Neurosurgery/Spine Clinic at [phone] with any further questions or concerns. documented [...] surgery documented in this encounter Care Teams Cyanide Pot Hardener Relationship Specialty Start Date End Date Jose Holden MD PCP - General Otolaryngology 12/14/17 [facility] [place] [address] documented as of this encounter
--- OUTSIDE RECORDS SUMMARY | 2022-08-14 17:43 | XMS_ITS | Encounter Summary ---
:1965 Author Organization [facility] Address [address] [place] [address] Care Team Providers Name Role Phone Jose Holden MD Primary Care Provider [phone] Encounter Details Date Type Department Care Team Description 03/24/2018 [facility]phone [facility] Neuroscience Chava Simon RN [place] Neurosurgery/ Ortho Spine [address] [place] [address] Social History Tobacco Use Types Packs/Day [...] RN 03/24/2018, 10:24 AM Sirisha Rankin, NIKKY, CENTER LEAD CONSULTANT - 03/24/2018 9:52 AM CDT Continue to monitor symptoms. No change in plan/appointment at this time. We will review cervical CTwhen it is available. Sirisha Jefferson APRN, CENTER LEAD CONSULTANT 03/24/2018, 9:53 AM Electronically signed by Sirisha Rankin, SUPERVISOR TELEPHONE CLERKS, CENTER LEAD CONSULTANT at 03/24/2018 9:54 AM DENT Chava Simon RN - 03/24/2018 9:23 AM CDT Patient called and state she was in a little accident last night. She ended up going to [facility]. They did imaging of neck and [...] positioning. Patient states she is able to tack picker a coffee cup with left hand. [...] clinic on 03/27/18 which were done at [facility]) Chava Simon RN 03/24/2018, 9:37 AM documented in this encounter Plan of Treatment Not on filedocumented as of this encounter Visit Diagnoses Not on filedocumented in this encounter Care Teams Merit System Director Relationship Specialty Start Date End Date Jose Holden MD PCP - General Otolaryngology 12/14/[address] [place] [address] documented as of this encounter
--- OUTSIDE RECORDS SUMMARY | 2022-08-14 17:43 | XMS_ITS | Encounter Summary ---
:1965 Author Organization [facility] Address [address] [address] Care Team Providers Name Role Phone Jose Holden MD Primary Care Provider [phone] Reason for Visit Auth/Cert Specialty Diagnoses / [...] Expiration Date Visits Requ ested Visits Authorized [id number] 1 1 Encounter Details Date Type Department Care Team Description 02/20/2018 [facility] Pete Gonzalez MD [address] [place] [address] [place] [address] [phone] (Wo rk) Social History Tobacco Use Types [...] on filedocumented in this encounter Care Teams Quarryman Relationship Specialty Start Date End Date Jose Holden MD PCP - General Otolaryngology 12/14/[address] [place], [place] [address] [address] documented as of this encounter
--- OUTSIDE RECORDS SUMMARY | 2022-08-14 17:43 | XMS_ITS | Encounter Summary ---
:1965 Author Organization [facility] Address [address] [place] [address] Care Team Providers Name Role Phone Jose Holden MD Primary Care Provider [phone] Reason for Visit Reason Comments Medication Questions FYI Encounter Details Date Type Department Care Team Description 03/01/2018 Telephone [facility] Pete Gonzalez MD Medication Questions; Neuroscience Center [address] [place] [address] FY I Neurosurgery/Ortho S [place] [address] [place] [address] [place] [address] [phone] (Wo rk) Social History Tobacco Use Types [...] on filedocumented in this encounter Care Teams Tufter Operator Relationship Specialty Start Date End Date Jose Holden MD PCP - General Otolaryngology 12/14/17 [facility] [place] [address] documented as of this encounter
--- OUTSIDE RECORDS SUMMARY | 2022-08-14 17:43 | XMS_ITS | Encounter Summary ---
:1965 Author Organization [facility] Address [address], [place] [address] Care Team Providers Name Role Phone Jose Holden MD Primary Care Provider Reason for Visit Reason Comments QUESTIONS, GENERAL Encounter Details Date Type Department Care Team Description 02/24/2018 Telephone [facility] Pete Gonzalez MD QUESTIONS, GENERAL Neuroscience Center [address] [facility] Neurosurgery/Ortho S [place], [place] [address] [address] [place] [address] [phone] Social History Tobacco Use Types Packs/Day Years [...] currently doing PT which was ordered through [facility] for her shoulder. She is worried [...] on filedocumented in this encounter Care Teams Maintainer Plant Relationship Specialty Start Date End Date Jose Holden MD PCP - General Otolaryngology 12/14/17 [facility] [place] [address] documented as of this encounter
--- OUTSIDE RECORDS SUMMARY | 2022-08-14 17:43 | XMS_ITS | Encounter Summary ---
:1965 Author [facility] Address [address] [address] Care Team Providers Name Role Phone Jose Holden MD Primary Care Provider [phone] Reason for Visit Auth/Cert Specialty Diagnoses / [...] Expiration Date Visits Requ ested Visits Authorized [id number] 1 1 Encounter Details Date Type Department Care Team Description 02/20/2018 [facility] Pete Gonzalez MD [address] [place] [address] [place] [address] [phone] (Wo rk) Social History Tobacco Use Types [...] on filedocumented in this encounter Care Teams Fiscal Analyst Relationship Specialty Start Date End Date Jose Holden MD PCP - General Otolaryngology 12/14/[address] [place] [phone] (work) documented as of this encounter
--- OUTSIDE RECORDS SUMMARY | 2022-08-14 17:43 | XMS_ITS | Encounter Summary ---
:1965 Author Organization [facility] Address [address], [place] [address] Care Team Providers Name Role Phone Jose Holden MD Primary Care Provider [phone] Reason for Visit Reason Onset Date Comments Refill 03/01/2018 Encounter Details Date Type Department Care Team Description 03/01/2018 Refill [facility] Neuroscience [place] Chava Simon RN Refill Neurosurgery/Ortho S [address] [place] [address] Social History Tobacco Use Types [...] as per standard weaning. Sirisha Jefferson APRN, BACKROOM ASSOCIATE 03/01/2018, 11:49 AM Chava Simon RN - [...] pt. have a f/u appointment: 04/05/2018 Pharmacy: [facility] pharmacy Chava Simon RN 03/01/2018, 11:40 AM documented in this encounter Plan of Treatment Not on filedocumented as of this encounter Visit Diagnoses Not on filedocumented in this encounter Care Teams Plant Specialist Relationship Specialty Start Date End Date Jose Holden MD PCP - General Otolaryngology 12/14/[address] [place], [place] [address] [address] documented as of this encounter
--- OUTSIDE RECORDS SUMMARY | 2022-08-14 17:43 | XMS_ITS | Encounter Summary ---
:1965 Author Organization [facility] Address [address], [place] [address] Care Team Providers Name Role Phone Jose Holden MD Primary Care Provider [phone] Reason for Visit Reason Comments Refill Encounter Details Date Type Department Care Team Description 03/07/2018 [facility] Pete Gonzalez MD Refill Center Neurosurgery/Ortho [address] [facility] Spine [place], [place] [address] [address] [place] [address] [phone] Social History Tobacco Use Types Packs/Day Years [...] on filedocumented in this encounter Care Teams Flat Bed Knitter Relationship Specialty Start Date End Date Jose Holden MD PCP - General Otolaryngology 12/14/[address] [place] [address] documented as of this encounter
--- OUTSIDE RECORDS SUMMARY | 2022-08-14 17:43 | XMS_ITS | Encounter Summary ---
:1965 Author [facility] Address [address] [address] Care Team Providers Name Role Phone Jose Holden MD Primary Care Provider [phone] Reason for Referral Procedure/Equipment (Routine) - Incomplete Specialty Diagnoses / Procedures Referred By Contact Refer red To Contact Diagnoses S/P cervical spinal fusion Sirisha Rankin, Procedures XR Cervical Spine AP/Lat Upright KALPANA SHER [address] [place] [address] Referral ID Status Reason Start Date Expiration Date Visits V isits Requested Authorized [id number] Incomplete 04/05/2018 07/05/2019 1 1 Reason for Visit Reason Comments POST-OP,EXAM Encounter Details Date Type Department Care Team Description 04/05/2018 Office Visit [facility] Sneha Maher, S/Camelia cervic al spinal [facility] RODRICK Newberry CNP fusion (Primary Dx) Neurosurgery/Ortho [address] Spine [place], [place] [address] [address] [place] [address] [phone] Social History Tobacco Use Types Packs/Day Years [...] your understanding. Please call the Neurosurgery Center [phone] with any further questions or concerns or if your symptoms worsen. Thank you for coming to see us today. We are your partner. documented in this encounter Progress Notes Sirisha Rankin, LOG INSPECTOR, NEW ORDER CLERK - 04/05/2018 1:00 PM CDT POSTOPERATIVE [...] a divorce and plans to move to [place] in the next several months. She would like to have an appointment with Dr. Gonzalez prior to her move out of [facility]. She denies any incisional concerns. She has [...] elbow(tricep) R:5/5 L: 5/5 C8 - Finger flexors(lehr tender) R:5/5 L: 5/5 T1 - Finger abduction/adduction [...] PM CDT Narrative 06/14/2018 5:54 PM CDT [facility] XR CERVICAL SPINE AP/LAT UPRIGHT [...] soft tissue swelling. Remainder unchanged. Sirisha Maher LOG INSPECTOR, NEW ORDER CLERK RAD GD documented in this encounter Visit Diagnoses Diagnosis S/P cervical spinal fusion - Primary Arthrodesis status S/P cervical spinal fusion Arthrodesis status documented in this encounter Care Teams Library Media Assistant Relationship Specialty Start Date End Date Jose Holden MD PCP - General Otolaryngology 12/14/17 [place] [address] documented as of this encounter
--- OUTSIDE RECORDS SUMMARY | 2022-08-14 17:44 | XMS_ITS | Encounter Summary ---
:1965 [facility] Address [address] [place] [address] Care Team Providers Name Role Phone Jose Holden MD Primary Care Provider [phone] Encounter Details Date Type Department Care Team Description 01/17/2018 Telephone [facility] Neuro[facility] Chava Simon RN Center Neurosurgery/ Ortho Sp[facility] [address] [facility] [place] [address] Social History Tobacco Use Types [...] in. Chava Simon RN 01/17/2018, 1:26 PM BAKER documented in this encounter Plan of Treatment Not on filedocumented as of this encounter Visit Diagnoses Not on filedocumented in this encounter Care Teams Barrel Loader And Cleaner Relationship Specialty Start Date End Date Jose Holden MD PCP - General Otolaryngology 12/14/17 [address] [place] [address] documented as of this encounter
--- OUTSIDE RECORDS SUMMARY | 2022-08-14 17:44 | XMS_ITS | Encounter Summary ---
:1965 Author Organization [facility] Address [address], [place] [address] Care Team Providers Name Role Phone Jose Holden MD Primary Care Provider [phone] Reason for Visit Reason Comments QUESTIONS, GENERAL Encounter Details Date Type Department Care Team Description 01/19/2018 Telephone [facility] Pete Gonzalez MD QUESTIONS, GENERAL Neuroscience Center [address] [facility] Neurosurgery/Ortho S [place], [place] [address] [address] [place] [address] [phone] Social History Tobacco Use Types Packs/Day Years [...] of MRI was received via mail from [facility]. CD given to RN . PAYROLL MANAGER Chava Simon RN - 01/19/2018 12:00 PM CST Patient states she will bring the MRI CD hopefully tomorrow 01/20/2018. Chava Simon RN 01/19/2018, 12:01 PM . PAYROLL MANAGER Gi De La Vega - 01/19/2018 11:47 AM CST Patient calling to speak to RN. Would like to speak to him regarding an MRI CD? Please call her at [phone]. . PAYROLL MANAGER documented in this encounter Plan of Treatment Not on filedocumented as of this encounter Visit Diagnoses Not on filedocumented in this encounter Care Teams Property Claim Rep Relationship Specialty Start Date End Date Jose Holden MD PCP - General Otolaryngology 12/14/17 [facility] [place] [address] documented as of this encounter
--- OUTSIDE RECORDS SUMMARY | 2022-08-14 17:44 | XMS_ITS | Encounter Summary ---
:1965 Author Organization [facility] Address [address] [place] [address] Care Team Providers Name Role Phone Jose Holden MD Primary Care Provider [phone] Encounter Details Date Type Department Care Team Description 02/14/2018 [facility] Chava Simon, RN [place] Neurosurgery/ Ortho Spine [address] [place] [address] Social History Tobacco Use Types Packs/Day [...] if we have received her preop yet. Weaving Supervisor relayed we have not. Patient was given [phone] to have preop be faxed to us. Patient states she already talked to them and they said they already sent it but she will reach out to them again. Will await a return call from patient/watch out for fax. Michael Cruz 02/14/2018, 10:06 AM Chava Simon RN - 02/14/2018 9:11 AM CDT I still have not received patient's preop from [facility]. Could you please call patient and make sure she has had it faxed to us? Chava Simon RN 02/14/2018, 9:11 AM documented in this encounter Plan of Treatment Not on filedocumented as of this encounter Visit Diagnoses Not on filedocumented in this encounter Care Teams Motor Overhauler Relationship Specialty Start Date End Date Jose Holden MD PCP - General Otolaryngology 12/14/17 [facility] [place] [address] documented as of this encounter
--- OUTSIDE RECORDS SUMMARY | 2022-08-14 17:44 | XMS_ITS | Encounter Summary ---
:1965 Author [facility] Address [address], [place] [address] Care Team Providers Name Role Phone Jose Holden MD Primary Care Provider [phone] Reason for Visit Reason Comments Consult, New Patient vocal cord analysis Consult/Transfer Care (Routine) - Closed Specialty Diagnoses / Procedures Referred By Contact Refer red To Contact Diagnoses Pseudarthrosis after fusion or arthrodesis Screening procedure Pete Gonzalez MD [address] [place] [address] Referral ID Status Reason Start Date Expiration Date Visits Requ ested Visits Authorized [id number] Closed 11/29/2017 02/28/2019 1 1 Encounter Details Date Type Department Care Team Description 12/26/2017 Office Visit Specialty Center Jose Holden Cer vical vertebral 401 Otolaryngology MD Deyvi fusion (Primary Dx) [address] [place] [address] [place], [place] [phone] Social History Tobacco Use Types Packs/Day Years [...] (166 lb 12.8 oz) 12/26/2017 2:06 PM SUPERVISOR COIN MACHINE Height - - Body Mass Index 32.58 11/29/2017 10:21 AM SUPERVISOR COIN MACHINE documented in this encounter Progress Notes Jose Holden MD - 12/26/2017 3:00 PM CST HPI: Angie Mosquera is a 52 y.o. old female who presents for vocal cord evaluation prior to cervical spine surgery. Patient has significant history of cervical spine surgery having approximate four procedures, three in [place] one here in the [place] area last year. After her last surgery, developed significant hoarseness, loss of voice for approximately three months. Cervical approach with her last surgery was left-hand side. States that she was evaluated by a booth manager and there were plans for a procedure [...] per day. 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 Not currently working. [...] software and may contain unintended word substitutions. RVISOR COIN MACHINE documented in this encounter Plan of Treatment Not on filedocumented as of this encounter Visit Diagnoses Diagnosis Cervical vertebral fusion - Primary Klippel-Feil syndrome documented in this encounter Care Teams Ore Buyer Relationship Specialty Start Date End Date Jose Holden MD PCP - General Otolaryngology 12/14/17 [facility] [place] [address] documented as of this encounter
--- OUTSIDE RECORDS SUMMARY | 2022-08-14 17:44 | XMS_ITS | Encounter Summary ---
:1965 Author Organization [facility] Address [address] [place] [address] Care Team Providers Name Role Phone Unassigned, Provider Primary Care Provider Unavailable Encounter Details Date Type Department Care Team Description 01/17/2006 [facility] Curtis Antoine Op Report-Archive [address] StreetBritton [place]ía [place] [address] [phone] [place] [address] Social History Tobacco Use Types Packs/Day Years Used Date Smoking Tobacco: Never Assessed Sex Assigned at Date Recorded Not on file documented as of this encounter Plan of Treatment Not on filedocumented as of this encounter Visit Diagnoses Not on filedocumented in this encounter Care Teams Octave Board Assembler Relationship Specialty Start Date End Date Unassigned, Provider PCP - General 08/05/03 12/13/17 [address] [place] [address] documented as of this encounter
--- OUTSIDE RECORDS SUMMARY | 2022-08-14 17:44 | XMS_ITS | Encounter Summary ---
:1965 Author Organization [facility] Address [address], [place] [address] Care Team Providers Name Role Phone Jose Holden MD Primary Care Provider [phone] Reason for Visit Auth/Cert Specialty Diagnoses / [...] Expiration Date Visits Requ ested Visits Authorized [id number] 1 1 Encounter Details Date Type Department Care Team Description 02/20/2018 Surgery RH Operating Room Marky Gonzalez MD FUSION POSTERIOR [address] [place] [address] [place], [place] C2-T3, REMOVAL HARDWARE [phone] [id number] SPINE Anterior plate [id number] (Wo rk) and Posterior screws and rods [...] encounter Discharge Summaries Sneha Maher, Sirisha Celaya, HEAVY EQUIPMENT OPERATOR, CAPACITY PLANNING ENGINEER - 02/23/2018 9:09 AM CDT Neurosurgery Discharge [...] fl Narrative Performed at [facility], [address] [place] [address] Physical Exam: BP 124/78 Pulse 74 Temp [...] T1. 3. Intraoperative placement and removal of Taylor-biNu tongs. 4. Hardware removal, C6-T1 posterior. 5. [...] in strength to your extremeties. Neurosurgery clinic [phone]. If it is after hours, please call [...] neurosurgery RN on 03/07 at 11AM at [address] [place] [address], 2nd floor. 2. Follow up with Dr. Gonzalez/Lois Pham PA-C/Sirisha Maher NP on 04/05 at 1:00PM at [address] [place] [address]. Patient also instructed to call clinic at [phone] or [facility] for any questions or concerns. Patient verbalizes understanding and states no further questions at this time. 3. Follow up with PCP for any medical issues Total time spent at the time of discharge was 30 minutes Sirisha Maher APRN, [place] Pgr#[phone] documented in this encounter Discharge Instructions Discharge InstructionsDonna Ellis RN - 02/23/2018 10:42 AM CDT [place] [address] General Information Discharging physician: Dr. Gonzalez [facility] Emergency & Urgently Needed Care: For emergencies call 911 and/or get medical help right away. If you are a [facility] member and have medical needs after clinic hours you may call the [facility] [phone] or . Fall Prevention Recommendations ??? Follow [...] End of Report --- Sirisha Rankin APRN, CAPACITY PLANNING ENGINEER - 02/23/2018 9:02 AM CDT Neurosurgery Progress [...] including C3- T1 posterior fusion (done in [place] approx 6 years ago), with C6-T1 pseudoarthrosis, [...] Dc home today ?? Sirisha Maher APRN, CAPACITY PLANNING ENGINEER 02/23/2018, 9:02 AM Neurosurgery Pgr#[phone] Jolene Kaur PA-C - 02/22/2018 12:45 PM [...] including C3- T1 posterior fusion (done in [place] approx 6 years ago), with C6-T1 pseudoarthrosis, [...] Lois Pham PA-C, 02/22/2018, 9:05 AM Neurosurgery [phone] He Reyes MD - 02/22/2018 8:29 AM [...] with any questionsor concerns. He Reyes M.D. Count Includes [facility] Pain Management [phone] INTERVAL HISTORY: She started tizanidine last night [...] 0743 Current Outpatient Prescriptions Ordered in [facility] Medication Sig Dispense Refill ??? sennosides-docusate sodium [...] TIME SPENT: 35 minutes including 50% time rocp-go-ndjd time counseling her about her diagnosis and treatment options, and coordinating care with the primary team. DECISION-MAKING: The level of decision-making in this case is high/complex due to the complexity of medical problems, acute/chronic pain, opioid analgesia issues, and behavioral factors. He Reyes M.D. Brooklyn Whittington - 02/21/2018 1:47 PM CDT [facility] Care Management Screening Admission Info: Cognitive capacity [...] She see Dr Dr Estephanie Franz at [facility]. No DC needs anticipated. I verified the demographics on the face sheet for the correct address, phone number, emergency contact and PCP information. Brooklyn Whittington RN CM [phone] Losi Pham PA-C - 02/21/2018 9:23 AM CDT Neurosurgery Progress Note Date of service: 02/21/2018 Subjective: Feels sore. Upset she did not have FENCE INSTALLER HELPER overnight. Wants to go smoke. Wants to [...] including C3- T1 posterior fusion (done in [place] approx 6 years ago), with C6-T1 pseudoarthrosis, [...] there were a couple of options including FENCE INSTALLER HELPER vs IV pain medications for post op pain control, and rationale for non FENCE INSTALLER HELPER at this time. Did discuss that would not recommend DC as drain still has high output. Upright xrays prior to DC Up with assistance Continue hemovac until <30/shift Soft collar when OOB, PRN in bed for comfort PT/OT Dispo: Anticipate home in next 1-2 days pending drain output Lois Pham PA-C, 02/21/2018, 9:23 AM Neurosurgery [phone] He Reyes MD - 02/20/2018 1:[address] Note from Dr. Covarrubias on 02/13/18: ? 1. On the day of surgery please order an Inpatient pain consult 2. Ketamine 5mg/h during surgery ?? Recommendations for opioids: ?? If using a FENCE INSTALLER HELPER: No oral opioids Start a FENCE INSTALLER HELPER pump with Dilaudid continuous IV infusion at a basal rate of 0.1 mg/hr with FENCE INSTALLER HELPER boluses of 0.2-0.4 mg every 10 minutes. ?? If not using a FENCE INSTALLER HELPER: Start dilaudid 2-4mg q3h prn (alternatively can [...] Pham PA-C - 02/20/2018 3:24 PM CDT [facility] Brief Operative Progress Note Surgery Date: 02/20/2018 Surgeon(s) and Role: * Marky Gonzalez MD - Primary PHYSICIAN SAP TECHNICAL ARCHITECT-Meka Pham Pre-op Diagnosis: * Cervical spondylosis with [...] medically necessary for an assistant professor of education because Dr. Gonzalez needed the operative exposure [...] Lois Pham PA-C, 02/20/2018, 3:25 PM Neurosurgery [phone] Marky Gonzalez MD - 02/20/2018 12:00 AM CDT [facility]: [phone] OPERATIVE REPORT DATE OF SURGERY: 02/20/2018 : 1965 SURGEON: MARKY GONZALEZ MD SAP TECHNICAL ARCHITECT: Lois Pham PA-C. PREOPERATIVE DIAGNOSES: 1. Status [...] stepwise fashion using absorbable suture. We placed Taylor-biNu tongs and then flipped the patient prone [...] all critical portions. MARKY GONZALEZ MD MMK/MODL /[id number] cc: MARKY GONZALEZ MD documented in this [...] the risk. She has been on these building carpenter helper, desires to eventually come off. She [...] with any questionsor concerns. He Reyes M.D. Count Includes [facility] Pain Management [phone] HISTORY OF PRESENT ILLNESS: Per Chart Review: [...] - headache Opioid prescriber: LEDY Ojeda MD-valium [facility] database review: Risk Factors: History [...] CURRENT MEDICATIONS: Current Facility-Administered Medications Ordered in [facility] Medication Dose Route Frequency Provider Last Rate [...] Lois Pham PA-C ??? glucose-ascorbic acid (aka [id number]) chewable tablet 4 Tab 4 Tab Oral [...] TIME SPENT: 70 minutes including 50% time dlny-gk-cnbv time counseling her about her diagnosis and treatment options, and coordinating care with the primary team. DECISION-MAKING: The level of decision-making in this case is high/complex due to the complexity of medical problems, acute/chronic pain, opioid analgesia issues, and behavioral factors. documented in this encounter Miscellaneous Notes OR Nursing - Monica Pate, RN - 02/20/2018 2:49 PM CDT [facility] Progress Note Patient Name: Angie Bender Date [...] failure. Anatomic alignment. Shoulder prosthesis. Sirisha Maher HEAVY EQUIPMENT OPERATOR, CAPACITY PLANNING ENGINEER RAD GD (ABNORMAL) Complete Blood Count-No Diff (02/22/2018 12:36 PM CDT) athologist Signature WBC 10.2 4.0 - 11.0 [facility] RBC 3.36 (L) 4.0 - 5.2 [facility] Hemoglobin 11.1 (L) 12.0 - 16.0 [facility] g/dl [facility] HCT 33.2 (L) 36.0 - 46.0 [facility] MCV 98.8 80 - 100 fl [facility] MCH 33.0 26 - 34 pg [facility] MCHC 33.4 32 - 36 [facility] g/dl [facility] RDW 14.4 11.5 - 14.5 [facility] Platelets 183 150 - 450 [facility] MPV 10.6 9.4 - 12.4 [facility] Specimen Anatomical Collection Method Collection Time Receive d Time (Source) Location / / Volume Laterality 02/22/2018 12:36 02/22/2018 PM CDT 12:37 PM CDT Narrative [facility] - 02/22/2018 12:46 PM C DT Performed at [facility] , [address] [place] [address] Lois Pham PA-C LAB_1 Performing Organization Address City/State/ZIP Code Phon e Number [facility] [address] [place] [address] [address], [facility] XR Cervical Spine AP/Lat Upright [...] Marky Gonzalez MD LAB_1 Performing Organization Address City/[facility] Phon e Number [address] [address] [place] [address], [facility] [phone] (ABNORMAL) Basic Metabolic Panel (02/21/2018 7:12 AM [...] AM 8 7:13 CDT AM CDT Narrative [facility] - 02/21/2018 7:47 AM CD T Performed at [facility] , [address] [place] [address] Lois Pham PA-C LAB_1 Performing Organization Address [facility]/ZIP [facility] Phon e Number [address] [address] [place] [address], [facility] [phone] (ABNORMAL) Hemogram with Plts (02/21/2018 7:12 AM CDT) athologist Signature WBC 10.0 4.0 - 11.0 [facility] RBC 3.29 (L) 4.0 - 5.2 [facility] Hemoglobin 10.7 (L) 12.0 - 16.0 [facility] g/dl HOSPITAL HCT 32.2 (L) 36.0 - 46.0 [facility] MCV 97.9 80 - 100 fl [facility] MCH 32.5 26 - 34 pg [facility] MCHC 33.2 32 - 36 [facility] g/dl HOSPITAL RDW 13.9 11.5 - 14.5 [facility] Platelets 186 150 - 450 [facility] MPV 10.3 9.4 - 12.4 [facility] Specimen Anatomical Collection Method Collection Time Receive d Time (Source) Location / / Volume Laterality 02/21/2018 7:12 AM 8 7:13 CDT AM CDT Narrative [facility] - 02/21/2018 7:26 AM CD T Performed at [facility] , [address] [place] [address] Lois Pham PA-C LAB_1 Performing Organization Address City/[facility] Phon e Number [address] [address], [facility] Glucose, Whole Blood POC (02/20/2018 11:20 PM CDT) athologist Signature Glucose, Whole 140 70 - 180 [facility] Blood mg/dl [facility] Comment: Point of Care Testing No Action Required Specimen Anatomical Collection Method Collection Time Receive d Time (Source) Location / / Volume Laterality 02/20/2018 11:20 02/20/2018 PM CDT 11:26 PM CDT Marky Gonzalez MD LAB_1 Performing Organization Address City/[facility] Phon e Number [address] [address], [facility] Glucose, Whole Blood POC (02/20/2018 5:05 [...] Address City/State/ZIP Code Phon e Number [address] [address], [facility] [phone] Glucose, Whole Blood POC (02/20/2018 3:45 PM CDT) athologist Signature Glucose, Whole 145 70 - 180 [facility] Blood mg/dl HOSPITAL Comment: Point of Care Testing No Action Required Specimen Anatomical Collection Method Collection Time Receive d Time (Source) Location / / Volume Laterality 02/20/2018 3:45 PM 8 3:52 CDT PM CDT Marky Gonzalez MD LAB_1 Performing Organization Address City/[facility]/ZIP Code Phon e Number [address] [address], [facility] XR C-Arm 0-30 Minutes (02/20/2018 2:05 PM CDT) Anatomical Region Laterality Modality Other Specimen (Source) Anatomical Location Collection Method / Collectio n Time Received Time / Laterality Volume Narrative 02/20/2018 2:06 PM CDT Fluoroscopy provided by a veterinary technologist. Exact fluoroscopy time is documented in end of exam information in EPIC Marky Gonzalez MD RAD GD XR C-Arm 2.5-3 Hours (02/20/2018 12:45 PM CDT) Anatomical Region Laterality Modality Other Specimen (Source) Anatomical Location Collection Method / Collectio n Time Received Time / Laterality Volume Narrative 02/20/2018 12:45 PM CDT Fluoroscopy provided by a veterinary technologist. Exact fluoroscopy time is documented in end of exam information in EPIC Marky Gonzalez MD RAD GD XR C-Arm 30-59 Minutes (02/20/2018 12:36 PM CDT) Anatomical Region Laterality Modality Other Specimen (Source) Anatomical Location Collection Method / Collectio n Time Received Time / Laterality Volume Narrative 02/20/2018 12:36 PM CDT Fluoroscopy provided by a veterinary technologist. Exact fluoroscopy time is documented in [...] Marky Gonzalez MD LAB_1 Performing Organization Address City/[facility]/ZIP Code Phon e Number [address] [address] [place] [address], [facility] Glucose, Whole Blood POC (02/20/2018 6:25 AM CDT) athologist Signature Glucose, Whole 90 70 - 180 [facility] Blood mg/dl [facility] Specimen Anatomical Collection Method Collection Time Receive d Time (Source) Location / / Volume Laterality 02/20/2018 6:25 AM 8 6:34 CDT AM CDT Marky Gonzalez MD LAB_1 Performing Organization Address City/[facility]/ZIP Code Phon e Number [address] [address], [facility] [phone] ABO/RH(D) Retype (02/20/2018 6:22 AM CDT) athologist Signature ABO/RH(D) A NEGATIVE [facility] Specimen Anatomical Collection Method Collection Time Receive d Time (Source) Location / / Volume Laterality 02/20/2018 6:22 AM 8 6:25 CDT AM CDT Narrative [facility] - 02/20/2018 7:06 AM CD T Performed at [facility] , [address] [place] [address] Marky Gonzalez MD LAB_1 Performing Organization Address City/[facility]/ZIP Code Phon e Number [address] [address], [facility] INR/Protime (PT/INR) (02/20/2018 6:08 AM CDT) P athologist Signature Protime 13.0 12.0 - 14.5 [facility] INR 1.0 0.9 - 1.1 [facility] Specimen Anatomical Collection Method Collection Time Receive d Time (Source) Location / / Volume Laterality 02/20/2018 6:08 AM 8 6:22 CDT AM CDT Narrative [facility] - 02/20/2018 6:40 AM CD T Performed at [facility] , [address] [place] [address] Sirisha Maher APRN, CNP LAB_1 Performing Organization Address City/[facility] Phon e Number [address] [address] [place] [address], [facility] Hemogram with Platelets (02/20/2018 6:08 AM CDT) P athologist Signature WBC 6.7 4.0 - 11.0 [facility] RBC 4.13 4.0 - 5.2 [facility] Hemoglobin 13.5 12.0 - 16.0 [facility] gdl [facility] HCT 39.8 36.0 - 46.0 [facility] MCV 96.4 80 - 100 [facility] MCH 32.7 26 - 34 pg [facility] MCHC 33.9 32 - 36 [facility] RDW 13.8 11.5 - 14.5 [facility] Platelets 245 150 - 450 [facility] MPV 10.6 9.4 - 12.4 [facility] Specimen Anatomical Collection Method Collection Time Receive d Time (Source) Location / / Volume Laterality 02/20/2018 6:08 AM 8 6:22 CDT AM CDT Narrative [facility] - 02/20/2018 6:32 AM CD T Performed at [facility] , [address] [place] [address] Sirisha Maher APRN, CAPACITY PLANNING ENGINEER LAB_1 Performing Organization Address City/[facility]/ZIP [facility] Phon e Number [address] [address], [facility] (ABNORMAL) Basic Metabolic Panel (02/20/2018 6:08 AM CDT) athologist Signature Sodium 139 136 - 145 [facility] mmol/L [facility] Potassium 4.4 3.5 - 5.1 [facility] mmol/L HOSPITAL Comment: Specimen Slightly Hemolyzed Hemolysis May Affect Result Chloride 109 98 - 109 mmol/L [facility] CO2 18 (L) 20 - 29 mmol/L [facility] L Anion Gap (calc.) 12 7 - 16 mmol/L [facility] Glucose 96 70 - 180 mg/dl [facility] L Calcium 9.4 8.4 - 10.2 mg/dl [facility] BUN 14 7 - 26 mg/dl [facility] Creatinine 0.69 0.55 - 1.02 mg/dl [facility] GFR, Estimated >60 >60 ml/min/1.73m2 [facility] GFR, Est., If Black >60 >60 ml/min/1.73m2 [facility] Specimen Anatomical Collection Method Collection Time Receive d Time (Source) Location / / Volume Laterality 02/20/2018 6:08 AM 8 6:22 CDT AM CDT [facility] - 02/20/2018 6:52 AM CD T Performed at [facility] , [address] [place] [address] Sirisha Maher APRN, CAPACITY PLANNING ENGINEER LAB_1 Performing Organization Address City/State/ZIP Code Phon e Number [address] [address], [facility] aPTT (Activated Partial Thromboplastin Time) (02/20/2018 6:08 AM CDT) athologist Signature PTT 26.8 24.0 - 37.0 [facility] sec [facility] Specimen Anatomical Collection Method Collection Time Receive d Time (Source) Location / / Volume Laterality 02/20/2018 6:08 AM 8 6:22 CDT AM CDT [facility] - 02/20/2018 6:40 AM CD T Performed at [facility] , [address] [place] [address] Sirisha Celaya Sneha Maher APRN, CAPACITY PLANNING ENGINEER LAB_1 Performing Organization Address City/[facility]/ZIP Code Phon e Number [address] [address], [facility] [phone] ABO Rh & Antibody Screen (Type & Screen) (02/20/2018 6:07 AM CDT) [facility] gist Method Time Signature Crossmatch 02/23/2018 [facility]OSPITAL ABO/RH(D) A NEGATIVE [facility] Antibody NEGATIVE [facility] Screen HOSPITAL Specimen Anatomical Collection Method Collection Time Receive d Time (Source) Location / / Volume Laterality 02/20/2018 6:07 AM 8 6:22 CDT AM CDT Narrative [facility] - 02/20/2018 7:10 AM CD T Performed at [facility] , [address] [place] [address] Sirisha Maher APRN, CAPACITY PLANNING ENGINEER LAB_1 Performing Organization Address City/[facility] Phon e Number [address] [address], [facility] EKG IP (02/20/2018 12:00 AM CDT) Specimen (Source) Anatomical Location Collection Method / Collectio n Time Received Time / Laterality Volume 02/20/2018 Narrative This result has an attachment that is no t available. Provider [facility] EKG documented in this encounter [...] Segura, RN - 02/23/2018 9:57 AM CDT [facility] Plan of Care Note Assessment: Incisions C/D/I [...] Carbajal RN - 02/23/2018 7:43 AM CDT [facility] Plan of Care Note Assessment: pain Plan: [...] Rico RN - 02/22/2018 10:15 PM CDT [facility] Plan of Care Note Assessment: comfort level [...] Rico RN - 02/22/2018 4:00 PM CDT [facility]. MD Notified Note Name of MD notified: Ankit Time of MD notification: 1600 hours and 1 minute Reason: Pt.asking for valium now and current order for HS prn. plz review. [id number]. Response: Valium one time dose now and HS prn. Shawn Butcher RN --- End of Report --- Plan of Care - Alec Gifford RN - 02/22/2018 1:57 PM CDT [facility] Plan of Care Note Assessment: pain Plan: [...] Lundberg RN - 02/22/2018 2:32 AM CDT [facility] Plan of Care Note Assessment: Pain Plan: [...] Orellana RN - 02/22/2018 12:33 AM CDT [facility] Plan of Care Note Assessment: Pain Plan: [...] Gifford RN - 02/21/2018 1:41 PM CDT [facility] Plan of Care Note Assessment: pain control [...] Lundberg RN - 02/21/2018 4:56 AM CDT [facility]. MD Notified Note Name of MD notified: Neurosurg Time of MD notification: 0400 hours and 55 minutes Reason: [id number]- Pt reporting oral/IV pain meds ineffective. Pt upset, req further intervention. Please advise. Thanks. Response: Discussed w/ neurosurg. To be addressed in AM and PRNs to continue to be administered as able. Anita Lundberg RN --- End of Report --- Plan of Care - Anita Lundberg RN - 02/21/2018 2:26 AM CDT [facility] Plan of Care Note Assessment: Pain Plan: [...] and Signs and Symptoms Outcome: Progressing 02/20/18 1586 Pain, Acute Related Risk Factors (Acute Pain) surgery;procedure/treatment;persistent pain;disease process Signs and Symptoms (Acute Pain) alteration in muscle tone;sleep pattern alteration;verbalization of pain descriptors;questions meaning of pain;pacing/restlessness Goal: Acceptable Pain Control/Comfort Level 02/20/18 2356 Pain, Acute (Adult) Acceptable Pain Control/Comfort Level unable to achieve outcome Comments: [facility] Plan of Care Note Assessment: posterior neck pain worst than anterior Plan: IHR, assessment, pain control Subjective: I thought that I was going to be on a dilaudid drip Objective: Pt angry that she was not on a FENCE INSTALLER HELPER pump, Dilaudid PO and IV given q3h, [...] 10:32 AM CDT 2 Patches lidocaine-epinephrine 1 %-1:[id number] injec tion Given 02/20/2018 10:21 AM CDT [...] 5 mg 2320 (Given - Prov ider: Heathre Carbajal RN) 5 mg, Oral, HS PRN, [...] Provider: Heather Carbajal, RN)0643 (Given - Provider: Heatehr Carbajal, RN)0939 (Given - Provider: Marlne Segura RN) 2-4 mg, Oral, Q3H PRN, [...] mg 13 03 (Given - Provider: Coral Baever RN) 0708 (Given - Provider: Anita Lundberg [...] HS
documented in this encounter Care Teams Form Setter Supervisor Relationship Specialty Start Date End Date Jose Holden MD PCP - General Otolaryngology 12/14/[address] [place] [id number] documented as of this encounter
--- OUTSIDE RECORDS SUMMARY | 2022-08-14 17:44 | XMS_ITS | Encounter Summary ---
:1965 [facility] Address [address], [place] [address] Care Team Providers Name Role Phone Jose Holden MD Primary Care Provider [phone] Reason for Visit Therapies (Routine) - Closed Specialty Diagnoses / Procedures Referred By Contact Refer red To Contact Diagnoses Pseudarthrosis after fusion or arthrodesis Screening procedure Pete Gonzalez MD [address] [place] [address] Referral ID Status Reason Start Date Expiration Date Visits Requ ested Visits Authorized [id number] Closed 11/29/2017 01/28/2018 1 1 Encounter Details Date Type Department Care Team Description 12/26/2017 Office Visit Pete Orona MD [address] [place] [address] Pharyngeal dysphagia [facility] Kaykay Wyman PROCUREMENT INTERN [address] [place], [place] [id number] (Primary Dx) Speech Therapy [address] [place] [address]. [id number], [place] [id number] Social History Tobacco Use Types Packs/Day Years Used Date Smoking Tobacco: Every Day Cigarettes 0.5 Smokeless Tobacco: Never Alcohol Use Standard Drinks/Week Comments No 0 (1 standard drink = 0.6 oz pure alcoho l) Sex Assigned at Date Recorded Not on file documented as of this encounter Patient Instructions Patient InstructionsKaykay Wyman SLP - 12/26/2017 12:30 PM IT QUALITY ANALYST You had a swallow test today. I [...] sensation of food catching. Kaykay Monroy MA CCC/PROCUREMENT INTERN Speech-Language Pathologist M-F Office: [phone] QUALITY ANALYST documented in this encounter Progress Notes Kaykay Wyman, PROCUREMENT INTERN - 12/26/2017 12:30 PM CST SPEECH LANGUAGE PATHOLOGY MODIFIED BARIUM SWALLOW INITIAL EVALUATION ASSESSMENT Patient is referred for dysphagia evaluation as part of surgical consultation related to past ACDF 1[place] ago in [place] with consideration of revision ACDF surgery in [...] food sticking, especially on textures that are spray drier operator (meats, breads, etc). I would [...] goals established as no further intervention from PROCUREMENT INTERN service is warranted at this time. VISIT [...] Total Treatment Time: 45 minutes Kaykay Monroy CCC-PROCUREMENT INTERN 12/26/2017 documented in this encounter Plan of Treatment Scheduled Referrals Name Type Priority Associated Diagnoses Order S chedule Speech Therapy Referral Routine Pseudarthrosis after fusio n or Ordered: 11/29/2017 arthrodesis Screening procedure documented as of this encounter Visit Diagnoses Diagnosis Pharyngeal dysphagia - Primary Dysphagia, pharyngeal phase documented in this encounter Care Teams Trading Assistant Relationship Specialty Start Date End Date Jose Holden MD PCP - General Otolaryngology 12/14/17 [place] [address] documented as of this encounter
--- OUTSIDE RECORDS SUMMARY | 2022-08-14 17:44 | XMS_ITS | Encounter Summary ---
:1965 Author Organization [facility] Address [address], [place] [address] Care Team Providers Name Role Phone Unassigned, Provider Primary Care Provider Unavailable Reason for Referral Procedure/Equipment (Routine) - Incomplete Specialty Diagnoses / Procedures Referred By Contact Refer red To Contact Diagnoses Screening procedure Pseudarthrosis after fusion or arthrodesis Pete Gonzalez MD Procedures FL Video Swallow Study [address] [place] [address] Referral ID Status Reason Start Date Expiration Date Visits V isits Requested Authorized [id number] Incomplete 11/29/2017 02/28/2019 1 1 herapies (Routine) - Closed Specialty Diagnoses / Procedures Referred By Contact Refer herson To Contact Diagnoses Pseudarthrosis after fusion or arthrodesis Screening procedure Pete Gonzalez MD [address] [place] [address] Referral ID Status Reason Start Date Expiration Date Visits Requ ested Visits Authorized [id number] Closed 11/29/2017 01/28/2018 1 1 Scheduling Instructions Your provider has recommended an appoint ment with a [facility] Speech Therapist. Please stop at the clinic check out desk for as sistance with scheduling or if you prefer to call for your appointment you may call [facility] at [phone]. We suggest you call your [employer] insurance company about your coverage and benefits for this appointment. OLOGY SECRETARY Consult/Transfer Care (Routine) - Closed Specialty Diagnoses / Procedures Referred By Contact Refer red To Contact Diagnoses Pseudarthrosis after fusion or arthrodesis Screening procedure Pete Gonzalez MD [address] [place] [address] Referral ID Status Reason Start Date Expiration Date Visits Requ ested Visits Authorized [id number] Closed 11/29/2017 02/28/2019 1 1 Scheduling Instructions Your provider has recommended an appoint ment with [facility]. You may call [phone], optio n [phone], to schedule your appointment. If you prefer, a furnace door tender will contact you heena hebert the next 3 business days to assist you in setting up this appointment. We suggest you call your health insurance company about your coverage and benefits for this appo intment. OLOGY SECRETARY Procedure/Equipment (Routine) - Incomplete Specialty Diagnoses / Procedures Referred By Contact Refer red To Contact Diagnoses Screening procedure Pseudarthrosis after fusion or arthrodesis Pete Gonzalez MD Procedures XR Cervical Spine W Flex And Ext [address] [place] [address] Referral ID Status Reason Start Date Expiration Date Visits V isits Requested Authorized [id number] Incomplete 10/31/2017 01/30/2019 1 1 OLOGY SECRETARY Reason for Visit Reason Comments SECOND OPINION Consult/Transfer Care (Routine) - Closed Specialty Diagnoses / Procedures Referred By Contact Refer red To Contact Neurosurgery Ihsan Brooke MD [facility] Neurosurgery/Ortho [address] [place] [address] [place] [address]. [place] [address] Phone: Fax: Referral ID Status Reason Start Date Expiration Date Visits Requ ested Visits Authorized [id number] Closed 09/26/2017 12/26/2018 1 1 Encounter Details Date Type Department Care Team Description 11/29/2017 Office Visit [facility] Pete Gonzalez, Pseudarthr osis after fusion or arthrodesis (Primary Dx); [facility] Cervical spondylosis with radiculopathy; Neurosurgery/Ortho [address] [place] Bilater al occipital neuralgia; Spine [address] Screening procedure [address] [place] [address] [place] [address] [phone] Social History Tobacco Use Types Packs/Day Years Used Date Smoking Tobacco: Every Day Cigarettes 0.5 Smokeless Tobacco: Never Alcohol Use Standard Drinks/Week Comments No 0 (1 standard drink = 0.6 oz pure alcoho l) Sex Assigned at Date Recorded Not on file documented as of this encounter Last Filed Vital Signs Vital Sign Reading Time Taken Comments Blood Pressure 126/77 11/29/2017 10:21 AM PATHOLOGY SECRETARY Pulse 77 11/29/2017 10:21 AM PATHOLOGY SECRETARY Temperature - - Respiratory Rate - - Oxygen Saturation - - Inhaled Oxygen Concentration - - Weight 75.4 kg (166 lb 3.2 oz) 11/29/2017 10:21 AM PATHOLOGY SECRETARY Height 152.4 cm (5') 11/29/2017 10:21 AM PATHOLOGY SECRETARY Body Mass Index 32.46 11/29/2017 10:21 AM PATHOLOGY SECRETARY documented in this encounter Patient Instructions Patient InstructionsChava Simon RN - 11/29/2017 10:00 AM CST [facility] Patient Instructions Tests: You will be scheduled [...] your understanding. Please call the Neurosurgery Center [phone] with any further questions or concerns or if your symptoms worsen. Thank you for coming to see us today. We are your partner. OLOGY SECRETARY documented in this encounter Progress Notes Lois [...] after C3-T1 posterior cervical fusion done at [facility] in [place] multiple years ago. The [...] on fentanyl, ms contin and oxycontin in [place]. PSURGHX:No past surgical history on file. PMEDHX:No past medical history on file. MEDICATIONS: Outpatient Prescriptions as of 11/29/2017: benzonatate (TESSALON) 100 MG capsule Take 100 mg by mouth. Note (11/29/2017): Received from: [facility] Received Sig: Take 1 capsule by mouth 3 times daily if needed for Cough. Disp: Rfl: budesonide-formoterol (SYMBICORT) 160-4.5 MCG/ACT inhaler Inhale 2 Puffs. Note (11/29/2017): Received from: [facility] Received Sig: INHALE 2 PUFFS BY [...] Tab by mouth. Note (11/29/2017): Received from: [facility] Received Sig: Take 1 tablet [...] No narrative on file ROS: Reviewed per [facility] Neurosurgery New Patient Health Packet History was [...] 4/5 C7 Triceps: 5/5 4/5 C8 Finger flexors/principal research economist: 5/5 5/5 T1 Intrinsics: 5/5 5/5 Sensation: Intact with light touch bue/ble. Skin: Warm to touch to bilateral upper/lower extremities. No skin rashes or lesions noted RADIOLOGY: Personally reviewed CT scans from OSH as well as XR from here. No formal report for either available. Shows previous C3-T1 posterior fusion, appears fused C3-C6, screws at T1 appear lose. V0uxvclg through the facet joint. ASSESSMENT: 52 year old female s/p multiple previous cervical spine surgeries including C3-T1 posterior fusion (done in [place] approx 6 years ago), with C6-T1 pseudoarthrosis, [...] of the chart to: Ihsan Brooke MD [address] [place] [id number] Lois Pham PA-C, 11/29/2017, 12:34 PM OLOGY SECRETARY documented in this encounter Plan of Treatment Scheduled Referrals Name Type Priority Associated Diagnoses Order S chedule Otolaryngology Consult Referral Routine Pseudarthrosis aft er Ordered: Adult/Peds fusion or arthro desis 11/29/2017 Screening procedure Speech Therapy Referral Routine Pseudarthrosis after Order ed: fusion or arthro desis 11/29/2017 Screening procedure documented as of this encounter Results FL Video Swallow Study (12/26/2017 1:03 PM PATHOLOGY SECRETARY) Anatomical Region Laterality Modality Neck, Chest Radio Fluoroscopy Specimen (Source) Anatomical Collection Method Collection Time Re ceived Time Location / / Volume Laterality 12/26/2017 1:03 PM PATHOLOGY SECRETARY Narrative 12/26/2017 6:00 PM PATHOLOGY SECRETARY TX VIDEO SWALLOW STUDY 12/26/2017 1:03 PM INDICATION: [...] note might be different from the original. [place] VIDEO SWALLOW STUDY 12/26/2017 1:03 PM INDICATION: [...] W Flex And Ext (11/29/2017 9:54 AM PATHOLOGY SECRETARY) Anatomical Region Laterality Modality Spine, C-Spine, Neck Computed Radiograph y Specimen (Source) Anatomical Collection Method Collection Time Re ceived Time Location / / Volume Laterality 11/29/2017 9:54 AM PATHOLOGY SECRETARY Narrative 11/29/2017 10:59 AM PATHOLOGY SECRETARY XR CERVICAL SPINE W FLEX AND EXT [...] status documented in this encounter Care Teams Customer Success Advocate Relationship Specialty Start Date End Date Unassigned, Provider PCP - General 08/05/03 12/13/[address] [place] [address] documented as of this encounter
--- OUTSIDE RECORDS SUMMARY | 2022-08-14 17:44 | XMS_ITS | Encounter Summary ---
:1965 Author Organization [facility] Address [address], [place] [address] Care Team Providers Name Role Phone Unassigned, Provider Primary Care Provider Unavailable Reason for Visit Procedure/Equipment (Routine) - Incomplete Specialty Diagnoses / Procedures Referred By Contact Refer red To Contact Diagnoses Screening procedure Pseudarthrosis after fusion or arthrodesis Pete Gonzalez MD Procedures XR Cervical Spine W Flex And Ext [address] [place] [address] Referral ID Status Reason Start Date Expiration Date Visits V isits Requested Authorized [id number] Incomplete 10/31/2017 01/30/2019 1 1 Encounter Details Date Type Department Care Team Description 11/29/2017 Imaging [facility] Pineda MD Screening procedure Neuroscience Center [address] [facility] Radiology [place], [place] [address] [address] [place] [address] [phone] Social History Tobacco Use Types Packs/Day Years [...] dure Results for this FLEX AND EXT BOND RUNNER procedure are i n the results section. documented in this encounter Results XR Cervical Spine W Flex And Ext (11/29/2017 9:54 AM BOND RUNNER) Anatomical Region Laterality Modality Spine, C-Spine, Neck Computed Radiograph y Specimen (Source) Anatomical Collection Method Collection Time Re ceived Time Location / / Volume Laterality 11/29/2017 9:54 AM BOND RUNNER Narrative 11/29/2017 10:59 AM BOND RUNNER XR CERVICAL SPINE W FLEX AND EXT [...] condition documented in this encounter Care Teams Plan Coordinator Relationship Specialty Start Date End Date Unassigned, Provider PCP - General 08/05/03 12/13/[address] [place] [address] documented as of this encounter
--- OUTSIDE RECORDS SUMMARY | 2022-08-14 17:44 | XMS_ITS | Encounter Summary ---
:1965 Author Organization [facility] Address [address] [place] [address] Care Team Providers Name Role Phone Jose Holden MD Primary Care Provider [phone] Reason for Visit Procedure/Equipment (Routine) - Incomplete Specialty Diagnoses / Procedures Referred By Contact Refer red To Contact Diagnoses Screening procedure Pseudarthrosis after fusion or arthrodesis Pete Gonzalez MD Procedures FL Video Swallow Study [address] [place] [address] Referral ID Status Reason Start Date Expiration Date Visits V isits Requested Authorized [id number] Incomplete 11/29/2017 02/28/2019 1 1 Encounter Details Date Type Department Care Team Description 12/26/2017 Imaging [facility] Pineda MD Screening procedure; Neuroscience Center [address] [place], [place] [address]E Ps eudarthrosis after fusion or arthrodesis Radiology Fluoro S [address] [place] [address] [place] [address] [phone] (Wo rk) Social History Tobacco Use Types [...] Screening pr ocedure Results for this STUDY ORACLE DRM CONSULTANT Pseudarthrosis after procedu re are in fusion or the results arthrodesis section. documented in this encounter Results FL Video Swallow Study (12/26/2017 1:03 PM ORACLE DRM CONSULTANT) Anatomical Region Laterality Modality Neck, Chest Radio Fluoroscopy Specimen (Source) Anatomical Collection Method Collection Time Re ceived Time Location / / Volume Laterality 12/26/2017 1:03 PM ORACLE DRM CONSULTANT Narrative 12/26/2017 6:00 PM ORACLE DRM CONSULTANT FL VIDEO SWALLOW STUDY 12/26/2017 1:03 PM [...] for additional details. Pete Gonzalez MD RAD ID documented in this encounter Visit Diagnoses Diagnosis Screening procedure Screening for unspecified condition Pseudarthrosis after fusion or arthrodes is Arthrodesis status documented in this encounter Administered Medications Inactive Administered Medications - up to 3 most recent administrations Medication Order MAR Action Action Date Dose Rate Site barium sulfate (EZ PAQUE) Given 12/26/2017 1:06 PM ORACLE DRM CONSULTANT 200 mL suspension 200 mL 200 mL, Oral, ONCE (NON-SCHEDULED), Starting on Tue12/26/17 at 1305, For 1 dose barium sulfate (EZ-DISK) tablet 700 mg Given 12/26/2017 1:06 PM ORACLE DRM CONSULTANT 700 mg 700 mg, Oral, ONCE (NON-SCHEDULED), Starting on Tue12/26/17 at 1305, Until Tue12/26/17 at 1306, For 1 dose barium sulfate (EZ-PASTE) oral cream 9 g Given 12/26/2017 1:06 PM ORACLE DRM CONSULTANT 9 g 9 g (15 mL), Oral, ONCE (NON-SCHEDULED), Starting on Tue12/26/17 at 1305, For 1 dose barium sulfate (VARIBAR, TAGITOL V) 40 % Given 12/26/2017 1:06 P M ORACLE DRM CONSULTANT 240 mL suspension 240 mL 240 mL, Oral, ONCE (NON-SCHEDULED), Starting on Tue12/26/17 at 1305, Until Tue02/20/18 at 1710, For 3 doses documented in this encounter Care Teams Resource Specialist Teacher Relationship Specialty Start Date End Date Jose Holden MD PCP - General Otolaryngology 12/14/17 [facility] [place] [address] documented as of this encounter
--- OUTSIDE RECORDS SUMMARY | 2022-08-14 17:44 | XMS_ITS | Encounter Summary ---
:1965 Author Organization [facility] Address [address] [place] [address] Care Team Providers Name Role Phone Unassigned, Provider Primary Care Provider Unavailable Encounter Details Date Type Department Care Team Description 12/13/2006 [facility] Curtis Antoine Op Report-Archive [address] StreetBritton García [place] [address] [facility] [phone] [place] [address] Social History Tobacco Use Types Packs/Day Years Used Date Smoking Tobacco: Never Assessed Sex Assigned at Date Recorded Not on file documented as of this encounter Plan of Treatment Not on filedocumented as of this encounter Visit Diagnoses Not on filedocumented in this encounter Care Teams Beam Builder Relationship Specialty Start Date End Date Unassigned, Provider PCP - General 08/05/03 12/13/17 [address] [place] [address] documented as of this encounter
--- OUTSIDE RECORDS SUMMARY | 2022-08-14 17:44 | XMS_ITS | Encounter Summary ---
:1965 Author Organization [facility] Address [address] [place] [address] Care Team Providers Name Role Phone Jose Holden MD Primary Care Provider [phone] Reason for Visit Reason Comments Other Encounter Details Date Type Department Care Team Description 01/17/2018 [facility] Chava Simon RN Other Center Neurosurgery/ Ortho Spine [address] [place] [address]. [place] [address] Social History Tobacco Use [...] AM CST XR printed for patient to garbage pick up worker when she comes to clinic. Chava Simon RN 01/18/2018, 8:42 AM ERN TACK ASSEMBLY LINE WORKER Michael Cruz - 01/17/2018 3:46 PM CST Patient called in stating she will drop off her CD in clinic tomorrow. However she wants to make sure RADHA Bowie also has a copy of her neck pictures ready for her as well. Patient states she had alreadyspoken to RADHA Bowie about this. Please advise Michael Cruz 01/17/2018, 3:47 PM ERN TACK ASSEMBLY LINE WORKER documented in this encounter Plan of Treatment Not on filedocumented as of this encounter Visit Diagnoses Not on filedocumented in this encounter Care Teams Cosmetic Maker Relationship Specialty Start Date End Date Jose Holden MD PCP - General Otolaryngology 12/14/[address] [facility] [place] [address] documented as of this encounter
--- OUTSIDE RECORDS SUMMARY | 2022-08-14 17:44 | XMS_ITS | Encounter Summary ---
:1965 Author Organization [facility] Address [address], [place] [address] Care Team Providers Name Role Phone Jose Holden MD Primary Care Provider [phone] Reason for Visit Reason Comments QUESTIONS, GENERAL Encounter Details Date Type Department Care Team Description 01/25/2018 Telephone [facility] Pete Gonzalez MD QUESTIONS, GENERAL Neuroscience Center [address] [facility] Neurosurgery/Ortho [place], [place] [address] [address] [place] [address] [phone] Social History Tobacco Use Types Packs/Day Years [...] she should receive a call from the museum service scheduler in the next 1-3 weeks to discuss her surgery/date. Patient stated understanding and will call with any updates or changes. Chava Simon RN 01/25/2018, 11:04 AM EPOINT APPLICATION DEVELOPER Gi De La Vega 01/25/2018 10:56 AM CST Patient calling to speak to RN. Regarding her MRI scan. EPOINT APPLICATION DEVELOPER documented in this encounter Plan of Treatment Not on filedocumented as of this encounter Visit Diagnoses Not on filedocumented in this encounter Care Teams Associate Professor Of Economics Relationship Specialty Start Date End Date Jose Holden MD PCP - General Otolaryngology 12/14/[address] [place] [address] documented as of this encounter
--- OUTSIDE RECORDS SUMMARY | 2022-08-14 17:44 | XMS_ITS | Encounter Summary ---
:1965 Author Organization [facility] Address [address] [place] [address] Care Team Providers Name Role Phone Unassigned, Provider Primary Care Provider Unavailable Encounter Details Date Type Department Care Team Description 10/28/2005 [facility] Curtis Antoine Op Report-Archive [address] StreetBritton García [place] [address] [facility] [phone] [place] [address] Social History Tobacco Use Types Packs/Day Years Used Date Smoking Tobacco: Never Assessed Sex Assigned at Date Recorded Not on file documented as of this encounter Plan of Treatment Not on filedocumented as of this encounter Visit Diagnoses Not on filedocumented in this encounter Care Teams Service Support Representative Relationship Specialty Start Date End Date Unassigned, Provider PCP - General 08/05/03 12/13/17 [address] [place] [address] documented as of this encounter
--- OUTSIDE RECORDS SUMMARY | 2022-08-14 17:44 | XMS_ITS | Encounter Summary ---
:1965 [facility] Address [address] [place] [address] Care Team Providers Name Role Phone Jose Holden MD Primary Care Provider [phone] Encounter Details Date Type Department Care Team [...] on filedocumented in this encounter Care Teams Housing Coordinator Relationship Specialty Start Date End Date Jose Holden MD PCP - General Otolaryngology 12/14/17 [place] [address] documented as of this encounter
--- OUTSIDE RECORDS SUMMARY | 2022-08-14 17:44 | XMS_ITS | Encounter Summary ---
:1965 Author Organization [facility] Address [address] [place] [address] Care Team Providers Name Role Phone Jose Holden MD Primary Care Provider [phone] Encounter Details Date Type Department Care Team Description 02/07/2018 Prep [facility] Sneha Maher, Neuroscience Center Sirisha L, APR N, CUSTODIAN ATHLETIC EQUIPMENT Neurosurgery[place]Ortho [place] [address] [place] [address] [place] [address] [phone] Social History Tobacco Use Types Packs/Day Years [...] filedocumented in this encounter Care Teams Restaurant Line Cook Relationship Specialty Start Date End Date Jose Holden MD PCP - General Otolaryngology 12/14/[address] [place] [address] documented as of this encounter
--- OUTSIDE RECORDS SUMMARY | 2022-08-14 17:44 | XMS_ITS | Encounter Summary ---
:1965 Author Organization [facility] Address [address] [place] [address] Care Team Providers Name Role Phone Unassigned, Provider Primary Care Provider Unavailable Encounter Details Date Type Department Care Team Description 11/04/2005 [facility] Curtis Antoine Op Report-Archive [address] StreetBritton García [place] [address] [facility] [phone] [place] [address] Social History Tobacco Use Types Packs/Day Years Used Date Smoking Tobacco: Never Assessed Sex Assigned at Date Recorded Not on file documented as of this encounter Plan of Treatment Not on filedocumented as of this encounter Visit Diagnoses Not on filedocumented in this encounter Care Teams Paint Roller Assembler Relationship Specialty Start Date End Date Unassigned, Provider PCP - General 08/05/03 12/13/17 [address] [place] [address] documented as of this encounter
--- OUTSIDE RECORDS SUMMARY | 2022-08-14 17:44 | XMS_ITS | Encounter Summary ---
:1965 Author Organization [facility] Address [address] [place] [address] Care Team Providers Name Role Phone Jose Holden MD Primary Care Provider [phone] Encounter Details Date Type Department Care Team Description 02/13/2018 Orders Only External to [facility] External, [place] [address] Social History Tobacco Use Types Packs/Day Years [...] on filedocumented in this encounter Care Teams Toggle Press Folder And Feeder Relationship Specialty Start Date End Date Jose Holden MD PCP - General Otolaryngology 12/14/17 [place] [address] documented as of this encounter
--- OUTSIDE RECORDS SUMMARY | 2022-08-14 17:44 | XMS_ITS | Encounter Summary ---
:1965 Author Organization Count includes the [facility] Address [address] [place] [address] Care Team Providers Name Role Phone Jose Holden MD Primary Care Provider [phone] Encounter Details Date Type Department Care Team Description 01/20/2018 Telephone [facility] Chava Simon RN Center Neurosurgery/ Ortho Spine [address] [place] [address] Social History Tobacco Use Types Packs/Day [...] placed. Chava Simon RN 01/25/2018, 8:24 AM FURNISHINGS SALES REPRESENTATIVE Chava Simon RN - 01/24/2018 12:[address] Gonzalez reviewed imaging and is waiting until appropriate time to place case request. Chava Simon RN 01/24/2018, 12:45 PM FURNISHINGS SALES REPRESENTATIVE Gi De La Vega - 01/20/2018 11:21 AM CST Patient called to speak to RN. She has a new phone number. Please call her at [phone]. thanks FURNISHINGS SALES REPRESENTATIVE Chava Simon RN - 01/20/2018 11:15 AM CST Images from the original note were not included. Team please have Dr. Gonzalez review imaging which is now on PACs and place case request. Chava Simon RN 01/20/2018, 11:18 AM FURNISHINGS SALES REPRESENTATIVE documented in this encounter Plan of Treatment Not on filedocumented as of this encounter Visit Diagnoses Not on filedocumented in this encounter Care Teams Suspect Artist Relationship Specialty Start Date End Date Jose Holden MD PCP - General Otolaryngology 12/14/[address] [place], [place] [address] [address] documented as of this encounter
--- OUTSIDE RECORDS SUMMARY | 2022-08-14 17:44 | XMS_ITS | Encounter Summary ---
:1965 Author Organization [facility] Address [address] [place] [address] Care Team Providers Name Role Phone Jose Holden MD Primary Care Provider [phone] Encounter Details Date Type Department Care Team Description 02/13/2018 Orders Only External to [facility] External, [place] [address] Social History Tobacco Use Types Packs/Day Years [...] on filedocumented in this encounter Care Teams Automobile Accessories Installer Relationship Specialty Start Date End Date Jose Holden MD PCP - General Otolaryngology 12/14/17 [place] [address] documented as of this encounter
--- OUTSIDE RECORDS SUMMARY | 2022-08-14 17:44 | XMS_ITS | Encounter Summary ---
:1965 Author Organization [facility] Address [address] [address] Care Team Providers Name Role Phone Jose Holden MD Primary Care Provider [phone] Encounter Details Date Type Department Care Team Description 12/02/2017 Orders Only External to Pete Gonzalez MD [address] [place], [place] [address] (Wo rk) Social History Tobacco Use Types [...] 12/02/2017 12:00 AM Resul ts for this MARKET DEVELOPMENT EXECUTIVE procedure are i n the results section. documented in this encounter Results MRI SPINE--SCAN (12/02/2017 12:00 AM MARKET DEVELOPMENT EXECUTIVE) Anatomical Region Laterality Modality Other Specimen (Source) Anatomical Location Collection Method / Collectio n Time Received Time / Laterality Volume 12/02/2017 Narrative This result has an attachment that is no t available. Pete Gonzalez MD DUMMY/OTHER/AR documented in this encounter Visit Diagnoses Not on filedocumented in this encounter Care Teams Truck Switcher Relationship Specialty Start Date End Date Jose Holden MD PCP - General Otolaryngology 12/14/17 [address] [place], [place] [id number] documented as of this encounter
--- OUTSIDE RECORDS SUMMARY | 2022-08-14 17:44 | XMS_ITS | Encounter Summary ---
:1965 Author Organization [facility] Address [address], [place] [address] Care Team Providers Name Role Phone Jose Holden MD Primary Care Provider [phone] Reason for Visit Reason Comments QUESTIONS, GENERAL Encounter Details Date Type Department Care Team Description 02/03/2018 Telephone [facility] Pete Gonzalez MD QUESTIONS, GENERAL Neuroscience Center [address] [facility] Neurosurgery/Ortho [place], [place] [address] [address] [place] [address] [phone] Social History Tobacco Use Types Packs/Day Years [...] PA. Chava Simon RN 02/03/2018, 12:01 PM CULAR DETOXIFICATION SPECIALIST Gi De La Vega - 02/03/2018 11:55 AM CST Patient calling to speak to Jamir. Would like to know about her surgery. Amusement Equipment Operator did let patient know that Ana Rosa computer processing scheduler is out of the office. She did request to speak to Jamir. Please call her at listed number. Thanks CULAR DETOXIFICATION SPECIALIST documented in this encounter Plan of Treatment Not on filedocumented as of this encounter Visit Diagnoses Not on filedocumented in this encounter Care Teams Belt Notcher Relationship Specialty Start Date End Date Jose Holden MD PCP - General Otolaryngology 12/14/[address] [place], [place] [address] [address] documented as of this encounter
--- OUTSIDE RECORDS SUMMARY | 2022-08-14 17:44 | XMS_ITS | Encounter Summary ---
:1965 Author Organization [facility] Address [address], [place] [address] Care Team Providers Name Role Phone Jose Holden MD Primary Care Provider [phone] Encounter Details Date Type Department Care Team Description 12/02/2017 Orders Only External to Pete Gonzalez MD [address] [place], [place] [address] (Wo rk) Social History Tobacco Use Types [...] 12:00 AM Resul ts for this LEAD TRAINER procedure are i n the results section. documented in this encounter Results MRI SPINE--SCAN (12/02/2017 12:00 AM LEAD TRAINER) Anatomical Region Laterality Modality Other Specimen (Source) Anatomical Location Collection Method / Collectio n Time Received Time / Laterality Volume 12/02/2017 Narrative This result has an attachment that is no t available. Pete Gonzalez MD DUMMY/OTHER/AR documented in this encounter Visit Diagnoses Not on filedocumented in this encounter Care Teams System Administrator Relationship Specialty Start Date End Date Jose Holden MD PCP - General Otolaryngology 12/14/17 [address] [place], [place] [id number] documented as of this encounter
--- OUTSIDE RECORDS SUMMARY | 2022-08-14 17:45 | XMS_ITS | Encounter Summary ---
:1965 Author Organization [facility] Address [address] [place] [address] Care Team Providers Name Role Phone Elsewhere, Pcp Primary Care Provider Unavailable Reason for Visit Appointment Request (Routine) - Closed Specialty Diagnoses / Procedures Referred By Contact Refer red To Contact Orthopedic Surgery Diagnoses Aftercare Total Shoulder Arthroplasty Referral ID Status Reason Start Date Expiration Date Visits Requ ested Visits Authorized [id number] Closed 06/23/2022 06/23/2023 1 1 Encounter Details Date Type Department Care Team Description 06/29/2022 Office Visit Department of Cyrus Polk Left Orthopedic Surgery in [place] (Primary Dx) [place], [place] [address] [place] [address] [address] [place] [id number] [phone] Social History Tobacco Use Types Packs/Day Years [...] attend roman catholic or Patient refused 2021 rastafarian services? Do [...] is dismissed to follow up through the [facility], Department of Orthopedic Surgery Total Joint Registry. All questions answered. DIAGNOSES #1 Status post shoulder arthroplasty documented in this encounter Plan of Treatment Upcoming Encounters Date Type Specialty Care Team Description 09/01/2022 Clinical Communication Admitting/Central Scheduling 09/06/2022 Appointment Radiology Alfredo Herrera O.P.A.-C. [address] [place] [address] 09/06/2022 Office Visit Orthopedic Surgery Cyrus Polk M.D. [address] [place] [address] documented as of this encounter Visit Diagnoses Diagnosis Pain Shoulder Left - Primary documented in this encounter Additional Health Concerns Assessment Noted Time PHQ-9 Depression Total Score: 16 02/11/2021 12:00 AM C DT documented as of this encounter Care Teams Whitewasher Relationship Specialty Start Date End Date Elsewhere, Pcp PCP - General Family Medicine 12/25/21 documented as of this encounter
--- OUTSIDE RECORDS SUMMARY | 2022-08-14 17:45 | XMS_ITS | Encounter Summary ---
:1965 Author Organization [facility] Address [address] [place] [address] Care Team Providers Name Role Phone Elsewhere, Pcp Primary Care Provider Unavailable Reason for Visit Reason Comments Pre-visit Intake Encounter Details Date Type Department Care Team Description 06/25/2022 Clinical Communication Visit Review in Pr e-visit Intake [place], [place] [address] [place], [place] [address] Social History Tobacco Use Types Packs/Day Years [...] you attend restoration or Patient refused 2021 baptist services? Do [...] as of this encounter Plan of Treatment Upcoming Encounters Date Type Specialty Care Team Description 09/01/2022 Clinical Communication Admitting/Central Scheduling 09/06/2022 Appointment Radiology Alfredo Herrera O.PBrittonAOmar [address] [place] [phone] 09/06/2022 Office Visit Orthopedic Surgery Cyrus Polk M.D. [address] [place] [phone] documented as of this encounter Visit Diagnoses Not on filedocumented in this encounter Additional Health Concerns Assessment Noted Time PHQ-9 Depression Total Score: 16 02/11/2021 12:00 AM C DT documented as of this encounter Care Teams Renewable Energy Trader Relationship Specialty Start Date End Date Elsewhere, Pcp PCP - General Family Medicine 12/25/21 documented as of this encounter
--- OUTSIDE RECORDS SUMMARY | 2022-08-14 17:45 | XMS_ITS | Clinical Summary ---
:1965 Author Organization [facility] Address [address] [place] [address] Care Team Providers Name Role Phone Elsewhere, Pcp Primary Care Provider Unavailable Source Comments Patient records contain information from all sites at [facility]. For routine questions regarding patient records, call [phone] during business hours, M-F 8:00 AM - 5:00 PM Central Time. Record requests for emergency care only can be directed to [phone] at any time.[facility] Allergies Active Allergy Reactions Severity Noted [...] 10/13/2017 Other lashaun ction(s): (see comments) Contact Quinter titis Gabapentin Other (see comments) Low 05/12/2017 [...] mg oral Daily, Other, Reported on 06/21/2022 pyloddlrox-jwsqeznfiumnp-hxkx Take 1 tablet by 0 12/2020 Active [...] by 0 01/28 Active mouth at bedtime. multivit-min/iron/folic/dhd016 Take 1 tablet by 0 Active (HAIR, [...] Added automatically from request for lonnie li [id number] Nicotine Dependence Unspecified 11/29/2017 Other Alf Current Drug Therapy 12/30/2016 Opioid Moderate Or Severe Use Disorder (Dependence) Un complicated 08/27/2016 Bipolar II Disorder 09/27/2007 Transient Ischemic Attack Encounters Date Type Specialty Care Team Description 08/09/2022 Clinical Orthopedic Surgery Cyrus Polk Return Visit Communication Lilian Souza 07/19/2022 Refill Community Internal Hoda Benito, Med fill Medicine Lilian 06/29/2022 Comprehensive Visit Physical Medicine Flavia Broderick [...] Communication Lilian Souza 06/22/2022 Clinical Acute Care Nehemiasaryan, Pregabalin Communication Lilian Hughes prescription 06/21/2022 Clinical Acute Care Gloriaaddy, Medication Ques tion Communication Lilian Hughes 06/17/2022 Anesthesia Event Radiology Luci Soniberyl, PRODUCT DEVELOPMENT, BIOFUELS PLANT OPERATIONS ENGINEER, DNAP Brian Hunt M.D. 06/17/2022 Orders Only Acute Care Latrice, Chronic Pain Sy ndrome (Primary Dx); Lilian Hughes Transient Ische maria t Attack; Fibromyalgia 06/15/2022 Ancillary Procedure Radiology Demarcus Ernst M.D. 06/15/2022 Ancillary Procedure Radiology Demarcus Ernst M.D. 06/15/2022 Hospital Encounter Tony, Weakness General (Primary Dx); - Scooter P, Incontinence Ur inary; 06/18/2022 Araceli SHERNCristiana Pain Back; Radha, Ataxia; Neftali García M.D. 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 Patient/) 06/10/2022 Clinical Orthopedic Surgery Cyrus Polkay re sults Veronica Souza M.D. 06/03/2022 Clinical Orthopedic Surgery Cyrus Polk Post-op Problem Communication Lilian Souza 05/19/2022 Clinical Neurology Robert Diehl pres ription Veronica Celaya M.D. 05/18/2022 Surgery Cyrus Polk ARTHROPLASTY Lilian Souza REPLACEMENT TOT AL SHOULDER. 05/18/2022 Anesthesia Event Kaushik Carpenter M.B., Ch.B. 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 Shoulder Joint Disorder Left; 05/20/2022 Pain Shoulder L eft; Primary Osteoar thritis Shoulder Left 05/17/2022 Hospital Encounter Laboratory Medicine Alfredo Herrera reoperative Exam A, O.P.A.-C. 05/17/2022 Office Visit Orthopedic Surgery Jam, Cyrus Pain Sh oulder Left; Lilian Souza Preoperative Ex am from Last 3 Months Immunizations Name Administration [...] you attend worship or Patient refused 2021 religion services? Do [...] 06/16/2022 1:23 AM CDT Plan of Treatment Upcoming Encounters Date Type Specialty Care Team Description 09/01/2022 Clinical Communication Admitting/Central Scheduling 09/06/2022 Appointment Radiology Alfredo Herrera O.P.A.-C. [address] [place] [phone] 09/06/2022 Office Visit Orthopedic Surgery Cyrus Polk M.D. [address] [place] [phone] Health Maintenance Due Date Last Done Comments [...] 09/11/2021, 09/13/2020 Medical Devices Implanted Type Area Commercial Lending Vice President Device Shelf Model / Identifier Expiration Serial / Date Lot Cmnt Bn Smp 20gm - [id number] Bone Cement Left: Nato [id number] / Implanted: Qty: 1 on 12/30/2021 by Cyrus Panchal M.D. at [facility] Shoulder / Grft Dbm Grf Obl Ld 15 - [id number] - [id number] Bone or Tis lebron Left: Medtronic 10/14/2023 [id number] / Implanted: Qty: 1 on 02/26/2022 at [facility] Shoulder [id number] / 4mm Amplatz Micro Plug Embolization Brain Amplatzer [id number] / Implanted: Qty: 1 on 02/16/2021 by Mustapha Posey M.D. at [facility] [employer] Executive / Dayo [id number] Description: MRI Conditional at 1.5T or 3T Max Whole Body YUSEF of 4 W/kg. AAC 2020 [email or web address] Hardware E.G. Hardware e.g. Neck Pins/Screws/Rods pins/screws/rods Scrw Cmp Pthrd 6.5x25 - [id number] Hardware e.g. Left: Trevor B iomet 12/29 [id number] / Implanted: Qty: 1 on 02/26/2022 at [facility] pins/screws/rods Shoulder 05/17 [id number] Knee Implant Knee Implant Bilateral: Knee Plg Ocl Amp Avpii 6 - [id number] Mesh or Patch Pedersen 07/31 [id number] / Implanted: Qty: 1 on 02/16/2021 by Mustapha Posey M.D. at [facility] [id number] Shoulder Implant Shoulder Implant Left: Shoulder Bsplt Glnd Cmp Rv Aug Sm - [id number] Shoulder Implant Left: Trevor Biomet 01/26 [id number] / Implanted: Qty: 1 on 02/26/2022 at [facility] Shoulder [id number] Hum Stm Cmp Rvrs Prim Mini 9 - [id number] Shoulder Implant Le ft: Trevor Biomet 08/28 [id number] / Implanted: Qty: 1 on 05/18/2022 by Cyrus Panchal M.D. at [facility] Shoulder 02/14 [id number] Medtronic Spinal Cord Stimulator Spinal Cord Back Medtronic [id number] / Implanted: 06/30/2020 (Quantity not on file) Stimulator [id number] / [id number] Description: Medtronic yourdeliverylis Spinal Cord Stimulator model #96740. As of 06/17/22, the stimulator IPG is [...] as of 03-19-21 SDN Explanted Type Area Commercial Lending Vice President Device Shelf Model / Identifier Expiration Serial / Date Lot Hum Hd Vrs Dl [id number] - [id number] Shoulder Left: Trevor Biom et 05/29/2031 [id number] / Implanted: Qty: 1 on 12/30/2021 by Cyrus Panchal M.D. at [facility] Implant Shoulder / Explanted: Qty: 1 on 02/26/2022 at [facility] [id number] [facility] Cmp Rvrs Prim Std 10 - [id number] Shoulder Left: Zi mmer Biomet 12/16/2029 [id number] / Implanted: Qty: 1 on 02/26/2022 at [facility] Implant Shoulder / Explanted: Qty: 1 on 05/18/2022 at [facility] [id number] Spinal Cord Stimulator Spinal Cord Pelvis Nevro Explanted: 03/10/2020 (Quantity not on file) Stimulator Description: Device was explanted on 02-26 per [facility] Support. HEMALATHA 03-19-21 Procedures Procedure Name Priority [...] procedure are i n the results section. LA US GUIDE PLC NDL Routine 05/18/2022 11:24 AM R esults for this CDT procedure are i n the results section. LA INJ ANES BRACHIAL Routine 05/18/2022 11:24 AM [...] upper thoracic spinal fusion. Flavia Broderick M.D. IMGeronimo DIAGNOSTIC IMAGING PROCE DURES (ABNORMAL) CBC without Differential (06/18/2022 7:50 AM CDT)Only the most recent of3 resultswithin the time period is included. [facility] gist Method Time Signature Hemoglobin 11.2 [...] [facility] - [address] [place], [place] [address] [facility] [place] [address] [address] [facility] Basic Metabolic Panel (06/18/2022 7:50 AM CDT)Only the most recent of5 results within the time period is included. P athologist Signature Potassium, S 4.2 3.6 - 5.2 06/18/2022 DTL mmol/L 8:56 AM CDT Sodium, S 137 135 - 145 06/18/2022 DTL mmol/L 8:56 AM CDT Chloride, S 102 98 - 107 06/18/2022 DTL mmol/L 8:56 AM CDT Bicarbonate, S 22 - 29 06/18/2022 DTL mmol/L 8:56 AM CDT Anion Gap 13 7 - 15 06/18/2022 DTL 8:56 AM CDT BUN (Blood Urea 15 6 - 21 06/18/2022 DTL Nitrogen), S mg/dL 8:56 AM CDT Creatinine 0.76 0.59 - 06/18/2022 DTL 1.04 mg/dL 8:56 AM CDT eGFR-Non 86 >=60 06/18/2022 DTL Black/ mL/min/BSA 8:56 AM CDT [place] Comment: ----ADDITIONAL INFORMATION---- Estimated GFR calculated using [...] [facility] [address] [place], [place] [address] [facility] [place] 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 The [place]ot[place] intraocular lenses are absent . 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 The [place] intraocular lenses are absent . 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 The [place] intraocular lenses are absent . 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 The [place] intraocular lenses are absent . 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 The [place] intraocular lenses are absent . 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 The [place] intraocular lenses are absent . Mild mucosal [...] CRNA, DNAP Care team members present 1. Haselton, Brian J, M.D. Patient location during procedure: OR / Procedure Area PROCEDURE DETAILS: Mask difficulty assessment: easy mask Final airway type: video laryngoscope Laryngeal Manipulation: no ?? Final best view of glottic structures - Cormack/Lehane Score: grade 1 ETT location: oral VL device: glide scope Tyler scope blade size: 3 Adult tube size: [...] ?? Airway event: no complications Sapphire Verma PRODUCT DEVELOPMENT, BIOFUELS PLANT OPERATIONS ENGINEER, DNAP ANESTHESIA ORDERABLES Osmolality, Urine (06/16/2022 9:32 [...] [facility] - [address] [place], [place] [address] [facility] [place] [address] [address] (ABNORMAL) Dipstick, Urine (06/16/2022 9:32 AM CDT) [...] ORDERABLES Performing Organization Address [facility] Phon e Number [facility] - [address] [place] [address] [facility] [place] [address] pH, Random, Urine (06/16/2022 9:32 AM CDT) P athologist Signature pH, Random, U 5.0 4.5 - 8.0 06/16/2022 DTL 11:17 AM CDT Specimen Anatomical Collection Method Collection Time Receive d Time (Source) Location / / Volume Laterality Urine 06/16/2022 9:32 AM 2 CDT 10:39 AM CDT Maira Haynes M.D. LAB URINE ORDERABLES Performing Organization Address City/[facility] Phon e Number [facility] - [address] [place], [place] [address] [place] [address] [address] [address] (ABNORMAL) Microscopic Manual (06/16/2022 9:32 AM [...] M.D. LAB URINE ORDERABLES Performing Organization Address City/[facility] Phon e Number [facility] - [address] [place], [place] [address] [facility] [place] [address] (ABNORMAL) Urinalysis with Microscopic: Urine, Catheter [...] M.D. LAB URINE ORDERABLES Performing Organization Address City/[facility] Phon e Number [facility] - [address] [place], [place] [address] [facility] [place] [address] [address] Hemoglobin A1c (06/16/2022 7:31 AM CDT) P athologist Signature Hemoglobin A1c, 4.9 4.0 - 5.6 06/16/2022 DTL B % 8:13 AM CDT Specimen Anatomical Collection Method Collection Time Receive d Time (Source) Location / / Volume Laterality Blood (Blood, 06/16/2022 7:31 AM 06/16/20 7:51 Venous) CDT AM CDT Kiran Melton M.D. LAB BLOOD ADD-ON Performing Organization Address [facility] Phon e Number [facility] - [address] [address] [address] Vitamin B12 Assay (06/16/2022 7:31 AM CDT) [...] BLOOD ADD-ON Performing Organization Address [facility] Phon e Number [facility] - [address] [place] [address] [address] (ABNORMAL) Comprehensive Metabolic Panel (06/16/2022 7:31 [...] 06/16/2022 DTL Black/ mL/min/BSA 8:22 AM CDT [place] Comment: ----ADDITIONAL INFORMATION---- Estimated GFR calculated using [...] [facility] [address] [place], [place] [address] [facility] [place] [address] [address] Critical Care (06/15/2022 8:47 PM CDT) Narrative Scooter Tony APRN C.N.P. - 06/15 8:47 PM CDT Scooter Tony APRN, C.N.Camelia. ? 06/15/2022 ??8:47 PM Critical Care Date/Time: 06/15/2022 8:47 PM Performed by: Scooter Tony APRN, C.N.P. Authorized by: Scooter Tony APRN, C.N.PBritton Critical care provider statement: Critical care total time (minutes): 45 Critical care time was exclusive of: sep arately billable procedures and treating other patients Critical care was necessary to treat or prevent imminent or life-threatening deterioration of the fo llowing conditions: RADIO TIME SALES SUPERVISOR failure or compromise Critical care was time spent personally by me on the following activities: ordering and review of radiographic stud ies, ordering and review of laboratory studies, discussions with [facility] provider, discussions with consultants, examination of patient, rev iew of old charts and re-evaluation of patient's condition Araceli Ochoa APRNNCristiana PROCEDURE/MINOR SURGICA L ORDERABLES SARS Coronavirus 2, PCR Rapid, V Symptomatic (06/15/2022 7:51 PM CDT) [facility] Method Time Signature SARS CoV-2, Undetected Undetected 06/15/2022 STMA PCR, Rapid, V 8:23 PM CDT Comment: ----ADDITIONAL INFORMATION---- This RT-PCR test was performed using the Tita SARS-CoV-2 and Influenza A/B Reagent assay from [employer], which has received Emergency Use Authori zation(EUA) by the U.S. Food and Drug Administration . Fact sheets for this Emergency Use Autho rization (EUA) assay can be found at the following link s: For Healthcare Providers: https://www.fda.gov/media/956795/downloa d For Patients: https://www.fda.gov/media/581663/downloa d SARS Coronavirus 2, Source, Rapid Swab, [...] [facility] - [address] [place], [place] [address] [facility] [place] [address] [address] Head Neck [...] 2H/6H, 5th Gen (06/15/2022 2:48 PM CDT) [facility] Method Time Signature Troponin T, 2 [...] 06/15/20 3:21 Venous) CDT PM CDT Narrative [facility] - 06/15/2022 3:54 PM CDT Specimen Information: Specimen ID: [id number] Specimen Type: Blood Specimen Collection Start Date: 06/15/20 ??2:48 PM Specimen Received Date: 06/15/2022 ??3:2 1 PM Specimen ID: [id number] Specimen Type: Blood Specimen Collection Start Date: 06/15/20 ??3:53 PM Specimen Received Date: 06/15/2022 ??3:5 3 PM Demarcus Ernst M.D. LAB BLOOD TROPONIN Performing Organization Address City/State/ZIP Code Phon e Number [facility] - [address] [place], [place] [address] [facility] [place] [address] [address] DX Hip And [...] Signature Ventricular Rate 58 BPM MUSE ECG/Min LA Interval 154 ms MUSE QRSD Interval 102 ms MUSE QT Interval 442 ms MUSE QTC Interval 433 ms MUSE P [place] 48 degrees MUSE R [place] -1 degrees MUSE T Wave [place] 38 degrees MUSE Specimen Anatomical Collection Method [...] Ernst M.D. ECG ORDERABLES Performing Organization Address City/[facility]/ZIP Code Phon e Number MUSE MUSE NA Troponin T, Baseline, 5th gen (06/15/2022 12:37 PM CDT) athologist Signature Troponin T, <6 <=10 ng/L 06/15/2022 [facility] Baseline, 5th 1:37 PM CDT gen Specimen Anatomical Collection Method Collection Time Receive d Time (Source) Location / / Volume Laterality Blood (Blood, 06/15/2022 12:37 06/15/2022 1:03 Venous) PM CDT PM CDT Demarcus Ernst M.D. LAB BLOOD TROPONIN Performing Organization Address City/[facility]/ZIP Code Phon e Number [facility] - [address] [place], [place] [address] [place] [address] [address] [facility] (ABNORMAL) Hepatic Function Panel (06/15/2022 12:37 [...] Number [facility] - [address] [place] [address] [facility] [place] [address] [address] [facility] (ABNORMAL) CBC with Differential, Blood (06/15/2022 12:36 PM CDT)Only the most recent of4 resultswithin the time period is included. [facility] Method Time Signature Hemoglobin 10.4 (L) [...] M.D. LAB BLOOD ADD-ON Performing Organization Address City/State/[facility] Code Phon e Number [facility] - [address] [place], [place] [address] [place] [address] [facility] [address] [place], [place] [id number] [place] [address] [address] [facility] Prothrombin Time (PT) (06/15/2022 12:34 PM CDT) P athologist Signature Prothrombin 10.2 9.4 - 12.5 06/15/2022 [facility] Time, P sec 1:10 PM CDT [...] 06/15/2022 1:03 Venous) PM CDT PM CDT Betzalel E Sujata M.D. LAB BLOOD ADD-ON Performing Organization Address City/State/ZIP Code Phon e Number [facility] - [address] [place], [place] [address] [facility] [place] [address] [address] Interpretation of Outside [...] Provider Not In System IMG DIAGNOSTIC IMAGING [facility] Performing Organization Address City/[facility]/ZIP Code Phon e Number IIMS IIMS NA [...] purposes. Jenna Zaldivar M.D. IMG DIAGNOSTIC IMAGING [facility] Surgical Pathology, Frozen Lab (05/18/2022 1:04 PM CDT) Component Value Ref Test Analysis Performed At [facility] Range Method Time Signature 05/20/2022 METH [...] Address City/State/ZIP Code Phon e Number [facility] - [address] [place], [place] [address] [facility] [place] [address] [facility] [address] Bacteria Cult, Aerobe / Anaerobe+Susc (05/18/2022 1:03 PM CDT)Only the most recent of3 resultswithin the time period is included. [facility] gist Method Time Signature Bacteria Cult, No growth 06/01/2022 DTL Aerobe/Anaerob after 14 6:02 PM CDT e+Susc days of incubation. Specimen Anatomical Collection Method Collection Time Receive d Time (Source) Location / / Volume Laterality Shoulder, Left 05/18/2022 1:03 PM 022 5:21 CDT PM CDT Comment: Specimen Source Site: Tissue #1 Narrative [facility] - 06/01/2022 6:02 PM CDT Bacterial Culture: Placed in Bactec aero bic and Bactec anaerobic bottles Cyrus Polk M.D. LAB MICROBIOLOGY - GENERAL O RDERABLES Performing Organization Address City/State/ZIP Code Phon e Number [facility] - [address] [place], [place] [address] [facility] [place] [address] [address] SW LDA ANE ENDOTRACHEAL AIRWAY (05/18/2022 12:20 PM CDT) Narrative Ihsan Townsend APRN, CRNA - 05/18/2022 12:20 PM CDT Ihsan Townsend APRN, CRNA ? 05/18/2022 12:51 PM Airway Date/Time: 05/18/2022 12:20 PM Performed by: Ihsan Townsend APRN, CRNA Authorized by: Kaushik Carpenter M.B., C h.BBritton Patient location during procedure: OR / Procedure Area PROCEDURE DETAILS: Mask difficulty assessment: easy mask Final airway type: video laryngoscope Laryngeal Manipulation: no ?? Final best view of glottic structures - Cormack/Lehane Score: grade 1 ETT location: oral VL device: glide scope Tyler scope blade size: 3 Adult tube size: [...] no complications Kaushik Carlos, Ch.B. ANESTHESIA ORDERABLES LA INJ ANES BRACHIAL PLEX, LA US GUIDE PLC NDL, MC ANE NERVE BLOCK WITH ULTRASOUND (05/18/2022 11:24AM CDT) Narrative Jonah Mendez M.D. - 05/18/2022 11:24 AM CDJonah Norwood M.D. ? 05/18/2022 12:18 PM Regional Block [...] Non-Radiology Image-Anesthesiology Image Exam (05/18/2022 9:35 AM [facility]) Specimen (Source) Anatomical Collection Method Collection Time Re ceived Time Location / / Volume Laterality 05/18/2022 10:22 AM MST Narrative [facility] - 05/18/2022 9:35 AM [facility] This order has been created and auto-finalized to support the import of images acquired without order. The clini france documentation to support these images can be found on the encounter daniel t produced images. Provider Not In System IMG NON RAD IMAGING PROCEDUR ES Performing Organization Address City/[facility]/ZIP Code Phon e Number [facility] NA (ABNORMAL) SPSMA Result (05/17/2022 [...] Reviewed by: Tech 05/17/2022 1:04 PM CDT [facility] Specimen Anatomical Collection Method Collection Time Receive d Time (Source) Location / / Volume Laterality Blood 05/17/2022 10:50 05/17/2022 AM CDT 11:30 AM CDT Alfredo Kamara LAB BLOOD ADD-ON Performing Organization Address City/State/ZIP Code Phon e Number [facility] - [address] [place], [place] [address] [place] [address] [address] Type and Screen (with reflex Antibody ID) (05/17/2022 10:50 AM CDT) Field Agent Method Time Signature ABORh A Neg Not 05/17/2022 ETRM applicable 7:10 PM CDT Antibody Negative Negative 05/17/2022 ETRM Screen 7:22 PM CDT Type & Screen 07/15/2022 05/17/2022 ETRM Expiration 23:59 7:10 PM CDT Testing Taylor DEFAULT 05/17/2022 ETRM Location 12:24 PM CDT Specimen Anatomical Collection Method Collection Time Receive d Time (Source) Location / / Volume Laterality Blood (Blood, 05/17/2022 10:50 05/17/2022 Venous) AM CDT 12:24 PM CDT Alfredo Kamara LAB BLOOD BANK TEST ORDERABL ES Performing Organization Address City/State/ZIP Code Phon e Number [facility] - [address] [place] [address] [facility] [place] [address] [address] [facility] SARS Coronavirus 2, Molecular Detection, PCR, Varies Asymptomatic (05/17/2022 10:26 AM CDT) Field Agent Method Time Signature COVID-19, Swab, 05/17/2022 DTL [...] ----ADDITIONAL INFORMATION---- This RT-PCR test using the QuickProNotes SARS-Co V-2 Assay ( [employer] performed on the QuickProNotes Two Module System has received Emergency Use Authorization (EUA) by the U.S. Food and Drug Administration, and is modified from the l d rn's instructions with a bridging study. Performance characteristics were verifie d by [facility] in a manner consistent with CLIA requirements. Visit the CDC website: https://www.cdc.g ov/coronavirus/ for the most recent guidelines on [facility] virus testing. Fact Sheet for Healthcare Providers: https://www.fda.gov/media/331486/downloa d Fact Sheet for Patients: https://www.fda.gov/media/062423/downloa d Specimen Anatomical Collection Method Collection Time Receive d Time (Source) Location / / Volume Laterality Varies 05/17/2022 10:26 05/17/2022 (Nasopharynx) AM CDT 10:52 AM CDT Alfredo Kamara LAB MICROBIOLOGY - GENERAL O RDERABLES Performing Organization Address City/State/ZIP Code Phon e Number [facility] - [address] [place], [place] [address] [facility] [place] [place] [address] [address] from Last 3 Months Insurance Payer Benefit Plan / Subscriber ID Effective Phone Address T ype Group Dates MEDICARE MEDICARE A AND B [id number] 2012-Pre [address] [place] [address] MEDICA MEDICA [id number] 2018-Pres [phone] [address] Medica id HMO ACCESSABILITY ent [phone] [place] [address] Advance Directives For more information, please contact: [phone] Latest Code Status on File Code Status [...] 8:26 PM Full Code: Discussed Care Teams Competitive Shopper Relationship Specialty Start Date End Date Elsewhere, Pcp PCP - General Family Medicine 12/25/21
--- OUTSIDE RECORDS SUMMARY | 2022-08-14 17:45 | XMS_ITS | Encounter Summary ---
:1965 Author Organization [facility] Address 200 [place] [address] Care Team Providers Name Role Phone Elsewhere, Pcp Primary Care Provider Unavailable Reason for Referral Physical Therapy (Routine) - Authorized Specialty Diagnoses / Procedures Referred By Contact Refer red To Contact Diagnoses Aftercare Total Shoulder Arthroplasty Flavia Broderick M.D. [facility] Procedures PT or OT eval and treat (first available) Referral ID Status Reason Start Date Expiration Date Visits V isits Requested Authorized [id number] Authorized 06/23/2022 06/23/2023 99 99 utpatient (Routine) - Closed Specialty Diagnoses / Procedures Referred By Contact Refer red To Contact Diagnoses Aftercare Total Shoulder Arthroplasty Flavia Broderick M.D. [facility] Procedures DX Shoulder Left 2+ Views Referral ID Status Reason Start Date Expiration Date Visits Requ ested Visits Authorized [id number] Closed 06/23/2022 06/23/2023 1 1 Reason for Visit Reason Comments Post-op Encounter Details Date Type Department Care Team Description 06/23/2022 Clinical Communication Department of Cyrus Polk-op Orthopedic Surgery in Lilian Souza [place], [place] 200 [facility] 200 [place] [phone] Social History Tobacco Use Types Packs/Day Years [...] you attend gnosticism or Patient refused 2021 restorationism services? Do [...] Appointment Radiology Alfredo Herrera O.P.A.-C. [address] [place] [address] 09/06/2022 Office Visit Orthopedic Surgery Cyrus Polk M.D. [address] [place] [address] documented as of this encounter Results DX [...] documented as of this encounter Care Teams Analytic Manager Relationship Specialty Start Date End Date Elsewhere, Pcp PCP - General Family Medicine 12/25/21 documented as of this encounter
--- OUTSIDE RECORDS SUMMARY | 2022-08-14 17:45 | XMS_ITS | Encounter Summary ---
:1965 Author Organization [facility] Address [address] [place] [address] Care Team Providers Name Role Phone Elsewhere, Pcp Primary Care Provider Unavailable Reason for Visit Reason Comments Med Refill Encounter Details Date Type Department Care Team Description 07/19/2022 Refill Division of [facility] Internal H Hoda parmar M.D. Med Refill Medicine, [facility], [place] [address] [place] [address] [place], [place] [phone] Social History Tobacco Use Types Packs/Day Years [...] you attend restorationist or Patient refused 2021 mandaen services? Do [...] encounter Miscellaneous Notes Telephone Encounter - Katelynn Mrecado - 07/22/2022 5:00 AM CDT NO PCP documented in this encounter Plan of Treatment Upcoming Encounters Date Type Specialty Care Team Description 09/01/2022 Clinical Communication Admitting/Central Scheduling 09/06/2022 Appointment Radiology Alfredo Herrera O.P.A.-C. [address] [place] [address] 09/06/2022 Office Visit Orthopedic Surgery Cyrus Polk M.D. [address] [place] [address] documented as of this encounter Visit Diagnoses Not on filedocumented in this encounter Additional Health Concerns Assessment Noted Time PHQ-9 Depression Total Score: 16 02/11/2021 12:00 AM C DT documented as of this encounter Care Teams Therapy Aide Relationship Specialty Start Date End Date Elsewhere, Pcp PCP - General Family Medicine 12/25/21 documented as of this encounter
--- OUTSIDE RECORDS SUMMARY | 2022-08-14 17:45 | XMS_ITS | Encounter Summary ---
:1965 Author Organization [facility] Address 200 [place] [address] Care Team Providers Name Role Phone Elsewhere, Pcp Primary Care Provider Unavailable Reason for Referral Outpatient (Routine) - Closed Specialty Diagnoses / Procedures Referred By Contact Refer red To Contact Diagnoses Aftercare Total Shoulder Arthroplasty Flavia Broderick M.D. [facility] Procedures DX Shoulder Left 2+ Views Referral ID Status Reason Start Date Expiration Date Visits Requ ested Visits Authorized [id number] Closed 06/23/2022 06/23/2023 1 1 Reason for Visit Outpatient (Routine) - Closed Specialty Diagnoses / Procedures Referred By Contact Refer red To Contact Diagnoses Aftercare Total Shoulder Arthroplasty Flavia Broderick M.D. [facility] Procedures DX Shoulder Left 2+ Views Referral ID Status Reason Start Date Expiration Date Visits Requ ested Visits Authorized [id number] Closed 06/23/2022 06/23/2023 1 1 Encounter Details Date Type Department Care Team Description 06/29/2022 Hospital Encounter Department of Flavia Broderick re Total Radiology, Severiano Porter M.D. Shoulder Arthroplasty Building, in [place], [place] 200 [place] [address] Social History Tobacco Use Types Packs/Day Years [...] you attend scientology or Patient refused 2021 yarsani services? Do [...] Appointment Radiology Alfredo Herrera O.P.A.-C. [address] [place] [address] 09/06/2022 Office Visit Orthopedic Surgery Cyrus Polk M.D. [address] [place] [address] documented as of this encounter Procedures Procedure [...] documented as of this encounter Care Teams Acute Care Clinical Nurse Specialist Relationship Specialty Start Date End Date Elsewhere, Pcp PCP - General Family Medicine 12/25/21 documented as of this encounter
--- OUTSIDE RECORDS SUMMARY | 2022-08-14 17:45 | XMS_ITS | Encounter Summary ---
:[address] [facility] Address [address] [place] [address] Care Team Providers Name Role Phone Elsewhere, Pcp Primary Care Provider Unavailable Reason for Visit Reason Comments Pregabalin prescription Encounter Details Date Type Department Care Team Description 06/22/2022 Clinical Communication RST ANDREW Pollard, Pregabalin [address] [facility] Lilian Hughes prescription [place], [place] [address] [facility] [address] [place] [address] Social History Tobacco Use Types Packs/Day Years [...] you attend gnosticist or Patient refused 2021 spiritism services? Do [...] the highest level of school Associate degree: etat polo, 03/24/2021 you have completed or the highest technical, or vocational p rogram degree you have received? Sex Assigned at Date Recorded Female 03/01/2019 10:12 AM CDT documented as of this encounter Miscellaneous Notes Telephone Encounter - Maritza Carrillo - 06/22/2022 12:18 PM CDT [facility] called. The patient had a prescription for Pregabalin sent to one of the [facility]ies on 06/17/22 and she never picked it up. [facility] would like the prescription sent to them since they provide the prescriptions to the patient. Please phone or send a new prescription for Pregabalin 300 mg to [facility] in [place]. Please do as soon as able, the patient is out of this medication. Thank you, Maritza [phone] documented in this encounter Plan of Treatment Upcoming Encounters Date Type Specialty Care Team Description 09/01/2022 Clinical Communication Admitting/Central Scheduling 09/06/2022 Appointment Radiology Alfredo Herrera O.P.A.-C. [address] [place] [address] 09/06/2022 Office Visit Orthopedic Surgery Cyrus Polk M.D. [address] [place] [address] documented as of this encounter Visit Diagnoses Not on filedocumented in this encounter Additional Health Concerns Assessment Noted Time PHQ-9 Depression Total Score: 16 02/11/2021 12:00 AM C DT documented as of this encounter Care Teams Agriculture Extension Specialist Relationship Specialty Start Date End Date Elsewhere, Pcp PCP - General Family Medicine 12/25/21 documented as of this encounter
--- OUTSIDE RECORDS SUMMARY | 2022-08-14 17:45 | XMS_ITS | Encounter Summary ---
:1965 Author Organization [facility] Address [address] [place] [address] Care Team Providers Name Role Phone Elsewhere, Pcp Primary Care Provider Unavailable Reason for Visit Reason Onset Date Comments Left Without Being Seen 07/22/2022 Physical Therapy (Routine) - Authorized Specialty Diagnoses / Procedures Referred By Contact Refer red To Contact Diagnoses Aftercare Total Shoulder Arthroplasty Flavia Broderick M.D. [facility] Procedures PT or OT eval and treat (first available) Referral ID Status Reason Start Date Expiration Date Visits V isits Requested Authorized [id number] Authorized 06/23/2022 06/23/2023 99 99 Encounter Details Date Type Department Care Team Description 06/29/2022 Comprehensive Visit Department of Physical Juaquin Broderick M.D. Procedure And Treatment Not Carried Out Due To Patient Leaving Prior To Being Seen By Health Care Provider (Primary Dx); Medicine and Jessie Faye M.S., O.T. 200 [place] [phone] Aftercare Total Shoulder Arthroplasty Rehabilitation in [place], [place] [address] [place] [address] Social History Tobacco Use Types Packs/Day Years [...] you attend alevism or Patient refused 2021 buddhism services? Do you belong to any clubs or No 05/17/2022 organizations such as alevism groups, unions, fraMICMALI or athletic groups, or school groups? How [...] of this encounter Progress Notes Marla Varghese C.HStacy., O.T. - 06/29/2022 10:00 AM CDT Patient prescheduled ahead of follow up with X-ray and Dr. Polk. Patient arrived at [facility] 15 desk and was rescheduled. documented in this encounter Plan of Treatment Upcoming Encounters Date Type Specialty Care Team Description 09/01/2022 Clinical Communication Admitting/Central Scheduling 09/06/2022 Appointment Radiology Alfredo Herrera O.P.A.-C. [address] [place] [address] 09/06/2022 Office Visit Orthopedic Surgery Cyrus Polk M.D. [address] [place] [address] documented as of this encounter Visit Diagnoses Diagnosis Procedure And Treatment Not Carried Out Due To Patient Leaving Prior To Being Seen By Health Care Provider - Primary Aftercare Total Shoulder Arthroplasty documented in this encounter Additional Health Concerns Assessment Noted Time PHQ-9 Depression Total Score: 16 02/11/2021 12:00 AM C DT documented as of this encounter Care Teams Teacher Of The Emotionally Disturbed Relationship Specialty Start Date End Date Elsewhere, Pcp PCP - General Family Medicine 12/25/21 documented as of this encounter
--- OUTSIDE RECORDS SUMMARY | 2022-08-14 17:45 | XMS_ITS | Encounter Summary ---
:1965 Author Organization [facility] Address [address] [place] [address] Care Team Providers Name Role Phone Elsewhere, Pcp Primary Care Provider Unavailable Reason for Referral Outpatient (Routine) - Authorized Specialty Diagnoses / Procedures Referred By Contact Refer red To Contact Diagnoses Pain Shoulder Left Alfredo Herrera O.P.A.-C. [facility] Procedures DX Shoulder Left 2+ Views [address] [place] [phone] Referral ID Status Reason Start Date Expiration Date Visits V isits Requested Authorized [id number] Authorized 08/09/2022 08/09/2023 1 1 Reason for Visit Reason Comments Return Visit Encounter Details Date Type Department Care Team Description 08/09/2022 Clinical Communication Department of Cyrus Polk Visit Orthopedic Surgery in Lilian Souza [place], [place] [address] [place] [address] 200 [place] [phone] [phone] Social History Tobacco Use Types Packs/Day Years [...] you attend methodist or Patient refused 2021 scientology services? Do you belong to any clubs or No 05/17/2022 organizations such as methodist groups, unions, [employer]lamour [employer] or athletic groups, or school groups? How [...] Notes Telephone Encounter - Sosa Laughlin - 08/09/2022 9:56 AM CDT Patient was in the ER locally and they placed her in a sling. She needs to see DR. Polk back. She also needs to see a knee surgeon. Please sign orders. Thank you documented in this encounter Plan of Treatment Upcoming Encounters Date Type Specialty Care Team Description 09/01/2022 Clinical Communication Admitting/Central Scheduling 09/06/2022 Appointment Radiology Alfredo Herrera O.P.A.-C. 200 [place] [address] 09/06/2022 Office Visit Orthopedic Surgery Cyrus Polk M.D. 200 [place] [address] Scheduled Orders Name Type Priority Associated Order Schedule Diagnoses DX Shoulder Left Imaging RAD - Routine (most Pain Shoulder Lef t 1 Occurrences 2+ Views inpatients and all starting 08/09/2022 outpatients) until 3 documented as of this encounter Visit Diagnoses Diagnosis Pain Shoulder Left - Primary Pain Knee Bilateral documented in this encounter Additional Health Concerns Assessment Noted Time PHQ-9 Depression Total Score: 16 02/11/2021 12:00 AM C DT documented as of this encounter Care Teams Third Cook Relationship Specialty Start Date End Date Elsewhere, Pcp PCP - General Family Medicine 12/25/21 documented as of this encounter
--- OUTSIDE RECORDS SUMMARY | 2022-08-14 17:45 | XMS_ITS | Encounter Summary ---
:1965 Author Organization [facility] Address [address] [place] [address] Care Team Providers Name Role Phone Elsewhere, Pcp Primary Care Provider Unavailable Reason for Visit Reason Comments Patient needs to r/s Jul 02 appointments Encounter Details Date Type Department Care Team Description 06/28/2022 Clinical Communication RST ANDREW Pollard, Patient needs to r/s [address] [facility] Lilian Hughes Jul 02 appointments [place], [place] [address] [place] [address] [place] [address] Social History Tobacco Use Types Packs/Day Years [...] you attend sabianism or Patient refused 2021 lutheran services? Do [...] then. Please call patient re: this . Maritza Jefferson [phone] documented in this encounter Plan of Treatment Upcoming Encounters Date Type Specialty Care Team Description 09/01/2022 Clinical Communication Admitting/Central Scheduling 09/06/2022 Appointment Radiology Alfredo Herrera O.P.A.-C. [address] [place] [phone] 09/06/2022 Office Visit Orthopedic Surgery Cyrus Polk M.D. [address] [place] [phone] documented as of this encounter Visit Diagnoses Not on filedocumented in this encounter Additional Health Concerns Assessment Noted Time PHQ-9 Depression Total Score: 16 02/11/2021 12:00 AM C DT documented as of this encounter Care Teams Cable Television Access Coordinator Relationship Specialty Start Date End Date Elsewhere, Pcp PCP - General Family Medicine 12/25/21 documented as of this encounter
--- OUTSIDE RECORDS SUMMARY | 2022-08-14 17:45 | XMS_ITS | Encounter Summary ---
:1965 Author Organization [facility] Address 200 [place] [address] Care Team Providers Name Role Phone Elsewhere, Pcp Primary Care Provider Unavailable Reason for Visit Reason Comments Medication Question Encounter Details Date Type Department Care Team Description 06/21/2022 Clinical Communication RST ANDREW Pollard, Medication Question 200 [facility] Lilian Hughes [place], [place] 200 [facility] [address] [place] [address] Social History Tobacco Use Types Packs/Day Years [...] you attend taoism or Patient refused 2021 congregational services? Do [...] 1:12 PM CDT Prescriptions are sent to [facility] Telephone Encounter - Brenda Wright - 06/23/2022 3:02 PM CDT The patient called again re: her pregabalin prescription. She did not pick it up at the hospital pharmacy since she did not know it was there. Her regular pharmacy is [facility] in [place]. A newprescription needs to be sent to [facility] in [place]. The patient is out of this medication. Please call the patient if any questions: . She has been calling and has not heard from anyone re: this. Maritza Jefferson [phone] Patient is saying that she never was told to garbage pick up man the following prescription when she was discharged on 06/17: pregabalin (LYRICA) 300 mg capsule Please send new prescription to [facility] in [place], [place] Please call patient if there are any questions. Brenda Jefferson [phone] documented in this encounter Plan of Treatment Upcoming Encounters Date Type Specialty Care Team Description 09/01/2022 Clinical Communication Admitting/Central Scheduling 09/06/2022 Appointment Radiology Alfredo Herrera O.P.A.-C. [address] [place] [address] 09/06/2022 Office Visit Orthopedic Surgery Cyrus Polk M.D. [address] [place] [address] documented as of this encounter Visit Diagnoses Not on filedocumented in this encounter Additional Health Concerns Assessment Noted Time PHQ-9 Depression Total Score: 16 02/11/2021 12:00 AM C DT documented as of this encounter Care Teams Account Financial Manager Relationship Specialty Start Date End Date Elsewhere, Pcp PCP - General Family Medicine 12/25/21 documented as of this encounter
--- OUTSIDE RECORDS SUMMARY | 2022-08-14 17:46 | XMS_ITS | Encounter Summary ---
:1965 Author Organization [facility] Address [address] [place] [address] Care Team Providers Name Role Phone Elsewhere, Pcp Primary Care Provider Unavailable Encounter Details Date Type Department Care Team Description 06/17/2022 Anesthesia Event Department of Radiology, Shantell Verma APRN, GINETTE, DNAP [address] [place] [phone] [facility] M.D. [address] [place] [phone] [place] [address] [place] [phone] Anesthesia Record Procedure Summary Procedure Name Responsible Anesthesia Start Anesthesia Stop Time Anesthesiologist Time MR BRAIN WITHOUT IV Sapphire Verma APRN, PIT OPERATOR, 06/17/22 1446 1702 CONTRAST DNAP Events Date [...] h andoff to the receiving staff during [facility] we 1. Identified the [...] over 3 days 1 patch (TRANSDERM S PLASTIC AND RECONSTRUCTIVE SURGEON) 1 patch Lactated Ringers Free Drip 850 [...] 06/17/22 1651 by Luci, Placement Time: 1459 NKIKY Leary CRNA, Rafiq heller APRN, CRNA, (created [...] you attend mandaen or Patient refused 2021 quaker services? Do [...] Notes Anesthesia Postprocedure Evaluation - Maritza Friend, MANAGER INVESTMENT BANKING, PIT OPERATOR, DNAP - 06/17/2022 5:09 PM CDT Patient: Angie Mosquera Procedure Summary Date: 06/17/22 Room / Location: Department of Radiology, [facility], in [place], [place] Anesthesia Start: 1446 Anesthesia Stop: 170 [...] ETT location: oral VL device: glide scope Raymond scope blade size: 3 Adult tube size: [...] equina r/o compression Location: Department of Radiology, 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 Risks/Benefits/Alternatives of Blood transfusion discussed with patient [...] 09/06/2022 Appointment Radiology Alfredo Herrera O.P.A.-C. [address] [place] [phone] 09/06/2022 Office Visit Orthopedic Surgery Cyrus Polk M.D. [address] [place] [phone] documented as of this encounter Procedures Procedure Name Priority Date/Time Associated Comments Diagnosis LDA ANE ENDOTRACHEAL Routine 06/17/2022 2:59 PM R esults for this AIRWAY CDT procedure are i n the results section. documented in this encounter Results LDA ANE ENDOTRACHEAL AIRWAY (06/17/2022 2:59 PM CDT) Narrative Sapphire Verma APRN, CRNA DNACamelia - 06/17/20 22 2:59 PM CDT Sapphire [...] ETT location: oral VL device: glide scope Raymond scope blade size: 3 Adult tube size: [...] ?? Airway event: no complications Sapphire Verma MANAGER INVESTMENT BANKING, PIT OPERATOR, DNAP ANESTHESIA ORDERABLES documented in this encounter [...] as of this encounter Care Teams Manager Global Relationship Specialty Start Date End Date Elsewhere, Pcp PCP - General Family Medicine 12/25/21 documented as of this encounter
--- OUTSIDE RECORDS SUMMARY | 2022-08-14 17:46 | XMS_ITS | Encounter Summary ---
:1965 Author Organization [facility] Address [address] [place] [address] Care Team Providers Name Role Phone Elsewhere, Pcp Primary Care Provider Unavailable Reason for Visit Reason Comments Post-op Problem Encounter Details Date Type Department Care Team Description 06/03/2022 Clinical Communication Department of Cyrus Polk st-op Problem Orthopedic Surgery in Lilian Souza [place], [place] [address] [place] [address] 200 [place] [phone] [phone] Social History Tobacco Use Types Packs/Day Years [...] you attend sabianism or Patient refused 2021 voodoo services? Do [...] Cyrus Polk M.D. CT CT Job ID: [id number] documented in this encounter Miscellaneous Notes Telephone [...] bent forward again. Please call her at [phone] to discuss. documented in this encounter Plan of Treatment Upcoming Encounters Date Type Specialty Care Team Description 09/01/2022 Clinical Communication Admitting/Central Scheduling 09/06/2022 Appointment Radiology Alfredo Herrera O.P.A.-CBritton [address] [place] [address] 09/06/2022 Office Visit Orthopedic Surgery Cyrus Polk M.D. [address] [place] [address] documented as of this encounter Visit Diagnoses Not on filedocumented in this encounter Additional Health Concerns Assessment Noted Time PHQ-9 Depression Total Score: 16 02/11/2021 12:00 AM C DT documented as of this encounter Care Teams Tax Accountant Relationship Specialty Start Date End Date Elsewhere, Pcp PCP - General Family Medicine 12/25/21 documented as of this encounter
--- OUTSIDE RECORDS SUMMARY | 2022-08-14 17:46 | XMS_ITS | Encounter Summary ---
:1965 Author Organization [facility] Address [address] [place] [address] Care Team Providers Name Role Phone Elsewhere, Pcp Primary Care Provider Unavailable Encounter Details Date Type Department Care Team Description 06/15/2022 Ancillary Procedure Department of Demarcus Ernst, Radiology in [place], [place] [address] PAREKH [address] [place] [address] [phone] (Wo rk) Social History Tobacco Use Types [...] you attend mosque or Patient refused 2021 denominational services? Do [...] Admitting/Central Scheduling 09/06/2022 Appointment Radiology Alfredo Herrera O.PBrittonACorazonCBritton [address] [place] [address] 09/06/2022 Office Visit Orthopedic Surgery Cyrus Polk M.D. [address] [place] [address] documented as of this encounter Procedures Procedure [...] Modality Head, Neuroradiology RST LOS, Neuroradiology ARZ [facility], N/A Computed Tomography Neuroradiology FLA [facility], Other Specimen (Source) Anatomical Collection Method Collection [...] documented as of this encounter Care Teams Game Farm Supervisor Relationship Specialty Start Date End Date Elsewhere, Pcp PCP - General Family Medicine 12/25/21 documented as of this encounter
--- OUTSIDE RECORDS SUMMARY | 2022-08-14 17:46 | XMS_ITS | Encounter Summary ---
:1965 Author Organization [facility] Address [address] [place] [address] Care Team Providers Name Role Phone Elsewhere, Pcp Primary Care Provider Unavailable Encounter Details Date Type Department Care Team Description 05/18/2022 - Hospital Encounter [facility] Mable Polk In fection Of Left Shoulder In Infectious And Parasitic Diseases Classified Elsewhere (HCC) (Primary Dx); 05/20/2022 Hospital, [facility] Cyrus Souza M.D. Shoulder Joint Disorder Left; [place], [facility] [address] [facility] Pain Shoulder Left; Building, [place], [place] Primary Os teoarthritis Shoulder Left Floor [address] [address] [facility] [phone] [place], [place] (Work) [address] Social History Tobacco Use [...] you attend samaritan or Patient refused 2021 baptist services? Do [...] AM CDT DISCHARGE SUMMARY BRIEF OVERVIEW Hospital: [facility] [place] Provider: Cyrus Polk M.D. Primary Team: [...] OR DISCHARGE DISPOSITION [place] [facility] [place]6] ACTIVE ISSUES REQUIRING FOLLOW UP This document serves as a prescription to continue physical therapy, medications, and labs or x-raysif ordered/required. If you have any questions or concerns about surgery or upcoming appointments, please do not hesitateto contact Dr. Polk's office at [phone] during regular business hours (8am-5pm M-F). For emergencies on the weekend or after hours, you may contact Dr. Polk's service via the [facility] straw hat brim cutter operator at [phone]. Details for your 6 week follow-up appointment [...] to: Cyrus Polk MD Dept of Orthopedics [address], [address] None OUTPATIENT FOLLOW UP For appointment details [...] M.D.Wasserburger, Jory N, M.D.Markos, James R, M.D. [facility] OR Angie Mosquera was taken [...] THC multivit-min/iron/folic/ Take 1 tablet by 0 [id number] (HAIR, SKIN AND mouth daily. NAILS ADVANCED [...] mask during therapy session: yes Outcome Measures -[facility] Inpatient Short Form: -[facility] Basic Mobility (V.2) How much [...] 3-5 steps with a railing?: A Little AM-[facility] Basic Mobility (V.2) Raw Score: 18 AM-[facility] Basic Mobility (V.2) Standardized Score: 41.05 Interpretation: Clinicians answer the -[facility] Inpatient Short Form based on [...] 6 pm, please page Jam service at [phone] For urgent matters from 6 pm until 6 am, please page [facility] [phone] Jane Nguyen PharmBrittonD., R.Ph. - 05/19/2022 8:12 [...] at this time. Jane Nguyen Pharm.D., R.Ph. [phone] Kaushik Cadena M.D. - 05/19/2022 7:34 AM [...] 6 pm, please page Jam service at [phone] For urgent matters from 6 pm until 6 am, please page Ortho [facility] at [facility] [phone] Paco Valentine - 05/18/2022 9:47 AM CDT Encounter: AM Admit Deanna Tradition: No baptist affiliation. Ms. Mosquera did not express any spiritual needs at this time. Plan: Will remain available for spiritual care as needed or requested. [phone] ([facility]). Rodrigo Preston, Mynor, R.Ph. [...] Take 150 mg by mouth every morning. xtlaucojyg-bsmbvnhjvuvlo-gpls (ESGIC) 50-325-40 mg per tablet Past Week [...] 1 spray as needed. 5 mg THC multivit-min/iron/folic/nrs272 (HAIR, SKIN AND NAILS ADVANCED ORAL) Past [...] Lives With: Alone Receives Help From: car park attendant, Family, Friend(s) ADL Assistance: Required assistance ADL Assistance Comments: Gets help from [facility] for her bath/shower 3x/week, and for her meals IADL/Homemaking Assistance: Required assistance IADL/Homemaking Assistance Comments: Gets help for housecleaning Driving: Does not drive Driving Comments: takes her cane and medical alert with her. Occupational Role: On disability Occupational Role Comments: Previously worked at a [employer] and [employer] Prior Mobility/Functional Transfers Level of Crawford: Needs assistance Previous Transfer/Mobility Assistance Comments: Patient [...] mask during therapy session: yes Outcome Measures AM-[facility] Inpatient Short Form: AM-PAC Basic [...] 3-5 steps with a railing?: A Little -[facility] Basic Mobility (V.2) Raw Score: 18 -[facility] Basic Mobility (V.2) Standardized Score: 41.05 Interpretation: Clinicians answer the -[facility] Inpatient Short Form based on [...] Nurse Referral Reason: Discharge Planning Primary Language: Setswana Certified Midwife Services Used: No Person(s) present during interview: Person(s) Present During Interview: patient History of Present Illness #1 Primary Osteoarthritis Shoulder Left Social History Support System: children, foster care case manager/social sciences instructor, friends/neighbors and home [...] Calm, Oriented Communication: Talks, Understands speaking, Understands Setswana Shopping: Needs assistance Transportation: Support from family Medication Management: Needs assistance Housekeeping: Needs assistance Meal Prep: Needs assistance Managing Finances: Independent Assistive Devices: Grab bars - wall, Eyeglasses Services/Resources: Other (comment) Agency Name: [facility] Services Provided: HEDIS ABSTRACTOR services 3x/week, nurse visits every other week Baseline Services/Resources Primary care clinic and provider: [facility] Phone: Fax: Anticipated Needs Functional Status: Transfer to/from bed, chair, etc., Bathing, Dressing, Grooming/hygeine, Housekeeping, Shopping, Meal preparation, Mobility, Medication set-up/administration, Transportation use (drive car, use taxi/bus) Services/Resources: Other (comment) Agency Name: [facility] Provided: HEDIS ABSTRACTOR services 3x/week, nurse visits every other week Transportation Needs: Support from family Does the patient need discharge transport arranged?: No Ride and Caregiver Arranged: Yes Anticipated Discharge Destination: [place] [facility] [place] / PLAN Assessment: The program paraprofessional met with Angie Mosquera to discuss her current hospitalization and home goingneeds. The patient was unaccompanied. The patient was a reliable historian. The role of program paraprofessional was reviewed. The patient reviewed her prior level of care and support system. The patient receives support from her son, friends and home care staff. Patient reported her son lives in the same apartment as her. She also stated getting HEDIS ABSTRACTOR services 3x/week and a nurse visits her every other week. The patient described her living environment as a two bedroom apartment. Housekeeping, grocery shopping, meal prep, and other household responsibilities have previously been completed by patient, patient's son and patient's caregiver(s). program paraprofessional discussed the patient's [facility] based on their home setting, previous needs and responsibilities, homebound status, and relevantassessments with the patient. The patient will be safe and supported to return home with [facility] or previous services noted above when medically ready. Support will be provided by son, friends and home care staff. The patient demonstrated understanding when discussing her home going plans and anticipated needs. At this time, the care team anticipates the patient requires the following service(s) to be reconnected: home healthcare. The patient identified the following as their current vendor(s): [facility]. During this visit patient verbalized she is hoping to increase her HEDIS ABSTRACTOR hours and also inq uired about getting a scooter to assist in her mobility. Patient went on to share she is unstable attimes due to her stroke history. She thought perhaps her neurology doctor would be able to help her get a scooter. RN ROWAN recommended she follow up with the critical access hospital in regards to wanting more HEDIS ABSTRACTOR hours. She was also recommended to follow up with her primary care provider to provide durable medical equipment justification for a scooter, as she is currently hospitalized for orthopedic surgery. Patient verbalized understanding. Patient informed RN CM would be reconnecting her HEDIS ABSTRACTOR services and nurse visits with [facility]. Patient agreeable to RN CM completing this and even provided RN CM the name and contact of her HEDIS ABSTRACTOR and RN. After reviewing the patient's chart and meeting with the patient, the program paraprofessional deemed the LACE+/readmission questions were not necessary. The patient reports understanding that she will dismiss from the hospital when medically stable. Pending hospital course and medical readiness, no barriers to dismissal have been identified at this time. Plan: Patient to discharge with home health care. [facility] Contact: RADHA Palomino ATTN: Georgette [...] directive. PRIMARY SERVICE: - Please provide a non-[facility] health order for resumption of previous [...] dismissal will be provided by family. 3. program paraprofessional recommended reaching out to family, friends, and neighbors for assistance. 4. program paraprofessional provided information regarding the dismissal process. 5. program paraprofessional placed or requested the following hospital-based consult orders and/or referrals:None. 6. program paraprofessional will continue to assess for homegoing needs with the interdisciplinary team. 7. program paraprofessional encouraged the patient to reach out with [...] will discharge to home with [facility] reconnect. Identify possible barriers to meeting goals/advancing plan of care: none End of Shift Summary: Patient stayed on schedule with prn pain meds (Tramadol and oxycodone) throughout the shift. Encouraged using ice packs to help with pain and swelling. Patient's primapore dressing was changed to Aquacell AG and is clean, dry and intact. Patient has baseline numb/tingling, moderate butcher scullion, skin pink and warm with +2 pulses. Patient expects RN from [facility] to visit on Tuesday, May 24. Patient's friend will transport home. Medications including: oxycodone and tramadol were picked up [facility]. documented in this encounter OR Notes Op Note - Cyrus Polk M.D. - 05/18/2022 5:54 PM CDT STAFF: Cyrus Polk M.D. RESIDENT: Jenna Zaldivar M.D. PRE-OPERATIVE DIAGNOSIS Left dislocated reverse arthroplasty. POST-OPERATIVE DIAGNOSIS Left dislocated reverse arthroplasty. A first coat sander actively participated and was necessary for one [...] glenosphere, placement new humeral stem and tray, [id number] Cyrus Polk M.D. CT CT Job ID: [id number]/mac documented in this encounter Miscellaneous Notes Hospital Course - Kaushik Cadena M.D. - 05/19/2022 12:18 PM CDT Surgery Information This Encounter Past Procedures (05/19/2021 to Today) Date Procedures Providers Location 05/18/2022 ARTHROPLASTY REPLACEMENT TOTAL SHOULDER. Cyrus Polk M.D.Wasserburger, Jory N, M.D.Markos, James R, M.D. [facility] OR Angie Mosquera was taken [...] 09/06/2022 Appointment Radiology Alfredo Herrera O.P.A.-C. [address] [place] [phone] 09/06/2022 Office Visit Orthopedic Surgery Cyrus Polk M.D. [address] [place] [address] documented as of this encounter Procedures Procedure [...] with Differential, Blood (05/20/2022 3:43 AM CDT) [facility] Time Signature Hemoglobin 8.4 (L) 11.6 [...] [facility] - [address] [place], [place] [address] [facility] [place] [address] [facility] [address] [facility] (ABNORMAL) CBC with Differential, Blood (05/19/2022 3:26 AM CDT) [facility] gist Method Time Signature Hemoglobin 7.6 [...] [facility] - [address] [place] [address] [facility] [place] [address] [facility] [address] [facility] (ABNORMAL) Basic Metabolic Panel (05/19/2022 [...] 05/19/2022 DTL Black/ mL/min/BSA 4:38 AM CDT Congolese Comment: ----ADDITIONAL INFORMATION---- Estimated GFR calculated using [...] [facility] - [address] [place], [place] [address] [facility] [place] [address] [facility] [address] DX Shoulder Left [...] purposes. Jenna Zaldivar M.D. IMG DIAGNOSTIC IMAGING [facility] Surgical Pathology, Frozen Lab (05/18/2022 1:04 PM CDT) Component Value Ref Test Analysis Performed At [facility] Range Method Time Signature 05/20/2022 METH [...] [facility] [address] [place], [place] [address] [facility] [place] [address] [facility] [address] Bacteria Cult, Aerobe / Anaerobe+Susc (05/18/2022 1:03 PM CDT) [facility] Method Time Signature Bacteria Cult, No growth 06/01/2022 DTL Aerobe/Anaerob after 14 6:02 PM CDT e+Susc days of incubation. Specimen Anatomical Collection Method Collection Time Receive d Time (Source) Location / / Volume Laterality Shoulder, Left 05/18/2022 1:03 PM 022 5:21 CDT PM CDT Comment: Specimen Source Site: Tissue #1 Narrative [facility] - 06/01/2022 6:02 PM CDT Bacterial Culture: Placed in Bactec aero bic and Bactec anaerobic bottles Cyrus Polk M.D. LAB MICROBIOLOGY - GENERAL O MARY Performing Organization Address City/[facility] Phon e Number [facility] - [address] [place], [place] [address] [facility] [place], [place] [id number] [place] [address] [address] [facility] Bacteria Cult, Aerobe / Anaerobe+Susc (05/18/2022 1:03 PM CDT) [facility] Method Time Signature Bacteria Cult, No growth 06/01/2022 DTL Aerobe/Anaerob after 14 6:02 PM CDT e+Susc days of incubation. Specimen Anatomical Collection Method Collection Time Receive d Time (Source) Location / / Volume Laterality Shoulder, Left 05/18/2022 1:03 PM 022 5:12 CDT PM CDT Comment: Specimen Source Site: Tissue #3 Narrative [facility] - 06/01/2022 6:02 PM CDT Bacterial Culture: Placed in Bactec aero bic and Bactec anaerobic bottles Cyrus Polk M.D. LAB MICROBIOLOGY - GENERAL O MARY Performing Organization Address City/State/[facility] Code Phon e Number [facility] - [address] [place], [place] [address] [facility] [place], [place] [id number] [place] [address] [address] [facility] Bacteria Cult, Aerobe / Anaerobe+Susc (05/18/2022 1:03 PM CDT) [facility] Method Time Signature Bacteria Cult, No growth 06/01/2022 DTL Aerobe/Anaerob after 14 6:02 PM CDT e+Susc days of incubation. Specimen Anatomical Collection Method Collection Time Receive d Time (Source) Location / / Volume Laterality Shoulder, Left 05/18/2022 1:03 PM 022 5:07 CDT PM CDT Comment: Specimen Source Site: Tissue #2 Narrative [facility] - [facility] - 06/01/2022 6:02 PM CDT Bacterial Culture: Placed in Bactec aero bic and Bactec anaerobic bottles Cyrus Polk M.D. LAB MICROBIOLOGY - GENERAL O RDERABLES Performing Organization Address City/State/ZIP Code Phon e Number [facility] - [address] [place], [place] [address] [facility] [place] [address] Formerly [facility] [address] documented [...] (TYLENOL) 1738 (Given - Provider: Corrie Toscano R.N.)2339 (Given - Provider: Catalina Mccloud RRebekah.) 0511 (Given - Provider: Catalina Mccloud R.N.)1153 (Given - Provider: Isaura Vu RBrittonNBritton)1725 (Given - Provider: Candace Lanza M.S.NBritton, R.N., O.C.N.) 0125 (Given - Provider: Carole Pérez.S.NBritton, R.N.)0552 (Given - Provider: Jere Levy RBetsy)1206 (Given - Provider: Kennedi Jensen R.N.) 1,000 mg, oral, Every 6 hours, First dose on Tue05/18/22 at 1815 acetaminophen tablet 1,000 mg (TYLENOL) (COMPLETED) 11 12 (Given - Provider: Cristy Rosario RBetsy) 1,000 mg, oral, Once, On Tue05/18/22 at 1100, For 1 dose, Pre-Op albuterol 90 mcg/actuation inhaler 2 puff (COMPLETED) 1129 (Given - Provider: Cristy Rosaroi R.N.) 2 puff, inhalation, Once, On Tue05/18/22 at 1115, For 1 dose, Pr e-Op aspirin tablet 325 mg 1206 (Give n - Provider: Kennedi Jensen R.N.) 325 mg, oral, Every evening, First dose on Clementine 05/20/22 at 1030 atorvastatin tablet 80 mg (LIPITOR) 2050 (Given - Prov ider: Bettie Macias RBrittonNBritton) 2226 (Given - Provider: Leticia Thorne, R. [...] 337 (New Bag - Provider: Catalina claudio R.N.) [...] 1240 (Given - Provider: Ihsan Townsend APRN, HORSE RACE TIMER) 2,000 mg (rounded from 1,652.5 mg = [...] Isaura Vu R.N.)1725 (Not Given - Provider: Carole Thorne.S.N., R.N., O.C.N. - Reason: Contraindicated - Comment: [...] Thorne., R.N., O.C.N. - Comment: pt request) 0909 [...] Provider: Isaura Vu R.N.)2223 (Given - Provider: Sen Thorne., R.N., O.C.N. - Comment: pt request) 09 (Given - Provider: Isaura Vu R.N.) 600 mg, oral, 2 times daily, First dose (after last modification) on Tue05/19/22 at 0900 QUEtiapine tablet 50 mg (SEROquel) 2051 (Given - Provi marquis: Bettie Macias R.N.) 2224 (Given - Provider: Carole Hobson.S.N., R.N., O.C.N. - Comment: pt request) 50 mg, oral, Daily at bedtime, First dose on Tue05/18/22 at 2100 rOPINIRole tablet 2 mg (REQUIP) 2050 (Given - Provider: Pravin De La Rosa R.N.) 2224 (Given - Provider: Jonny ThorneSBrittonNBritton, R.N., O.C.N. - Comment: pt request) 2 mg, oral, Daily at bedtime, First dose on Tue05/18/22 at 2100 sennosides-docusate sodium 8.6-50 mg per tablet 1 tabl et (SENOKOT-S) 2051 (Given - Provider: Bettie Macias R.N.) 08 (Given - Provider: Isaura Vu R.N.)2224 (Given - Provider: Jonny ThorneSBrittonN., R.N., O.C.N. - Comment: pt request) 09 (Given - Provider: Isaura Vu R.N.) 1 tablet, oral, 2 times daily, First dos e on Tue05/18/22 at 2100, Do not give if patient has diarrhea. tranexamic acid in NaCl IVPB 1,000 mg (CYKLOKAPRON) (C OMPLETED) 1240 (Given - Provider: Ihsan Townsend APRN, HORSE RACE TIMER) 1,000 mg (1 g), intravenous, at 300 [...] mg (ZONEGRAN) 2051 (Given - Pro vider: Btetie Macias R.N.) 0848 (Given - Provider: Isaura [...] PERLES) 0501 (Given - Provider: Catalina Mccloud R.N.)223 (Given - Provider: Candace Lanza, Carole.S.N., R.N., [...] Vu R.N.)1957 (Given - Provider: Melissa Garcia RBrittonN.)224 (Given - Provider: Candace Lanza, M.S.N., R.N., O.C.N.) 400 mg of calcium, oral, Every 2 hour IA N, indigestion, Starting on Tue05/18/22 at 1608, [...] daily PRN, muscle spasms, Starting on T u05/18/22 at 1651 diphenhydrAMINE capsule 25 mg (BENADRYL) [...] (CANCELED) 1416 (Given - Provider: Eve Smith RBetsy)1423 (Given - Provider: Eve Smith R.N.)1430 (Given [...] 1 416 (Given - Provider: Eve Smith RBetsy) 1 mg, intravenous, Once as needed, nause [...] (DILAUDID) (CANCEL ED) 1450 (Given - Provider: Vkitoriya Land RRebekah.)1506 (Given - Provider: Viktoriya Land [...] (COMPLETED) 1120 (New Bag - Provider: Cristy Rosario, R.N.) 20 mL/hr, intravenous, Once as needed, t o keep vein open, Starting on Tue05/18/22 at 1055, For 1 dose, Pre-Op midazolam (PF) injection 1 mg (VERSED) (CANCELED) 1119 (Given - Provider: Cristy Rosario, R.N.) 1 mg, intravenous, Every 2 min [...] (ZOFRAN) 2123 (Given - Provider: Jere Levy R.N.) 1502 (Given - Provider: Kiana Ramírez [...] (CANCELED) 15 (Given - Provider: Viktoriya Land RBrittonNBritton) 4 [...] Corrie Toscano RBrittonN.)2339 (Given - Provider: Catalina Mccloud, RBrittonN.) 0339 (Given - Provider: Catalina Mccloud, R.N.)0742 (Given - Provider: Catalina Mccloud, R.N.)1153 (Given - Provider: Isaura Vu RBrittonN.) 10 mg, oral, Every 4 hours PRN, severe p ain or score 7-10 of 10, Starting on Tue05/18/22 at 1608 oxyCODONE IR tablet 10 mg (ROXICODONE) (COMPLETED) 111 2 (Given - Provider: Cristy Rosario R.N.) 10 mg, oral, Once as needed, moderate pa in or score 4-6 of 10, severe pain or score 7-10 of 10, Starting on Tue05/18/22 at 1109, For 1 dose, Pre-Op oxyCODONE IR tablet 10 mg (ROXICODONE)(Linked Group 1) 1599 (Given - Provider: Isaura Vu R.N.)2004 (See Alternative - Provider: Melissa Garcia R.N.) 012 (See Alternative - Provider: Carole Pérez.S.NBritton, R.N.)0552 [...] R.N.)2004 (Given - Provider: Melissa Garcia R.N.) 012 (Given - Provider: Carole Pérez.S.NBritton, R.N.)0552 (Given - Provider: Jere Levy RBetsy)1004 (Given - Provider: Isaura Vu R.N. - [...] over 3 days 1 patch (TRANSDERM S SUSTAINABLE COMMUNITIES DESIGNER) (CANCELED) 1118 (Medication Applied - Provider: Cristy Rosario RBrittonN.) 1459 (Due: Medication Removed - Provider: Discharge [...] Macias RBetsy) 0612 (Given - Provider: Catalina lerma, R.N.)1209 (Given - Provider: Isaura Vu R.N.) 0124 (Given - Provider: Carole Pérez.S.Milad, R.N.)0732 (Given - Provider: Isaura Vu R.N.)1359 (Given - Provider: Isaura Vu R.N.) 100 mg, oral, Every 6 hours PRN, severe pain or score 7-10 of 10, Starting on Tue05/18/22 at 1608, First line therapy or for pain greater than comfort goal (not to exceed 400 mg in 24 hours). traMADoL tablet 50 mg (ULTRAM)(Linked Group 2) 2050 (Geronimo peoplesen - Provider: Bettie Macias R.N.) 0612 (See Alternative - Provider: Sal Mccloud R.N.)1209 (See Alternative - Provider: Isaura Vu RBetsy) 0124 (See Alternative - Provider: Leticia Pérez, R.N.)0732 (See Alternative - Provider: Isaura Vu [...] as of this encounter Care Teams Veneer Taping Machine Offbearer Relationship Specialty Start Date End Date Elsewhere, Pcp PCP - General Family Medicine 12/25/21 documented as of this encounter
--- OUTSIDE RECORDS SUMMARY | 2022-08-14 17:46 | XMS_ITS | Encounter Summary ---
:1965 Author Organization [facility] Address [address] [place] [address] Care Team Providers Name Role Phone Elsewhere, Pcp Primary Care Provider Unavailable Encounter Details Date Type Department Care Team Description 06/15/2022 Ancillary Procedure Department of Demarcus Ernst, Radiology in [place], [place] [address] [facility] [address] [place] [address] [phone] (Wo rk) Social History Tobacco Use Types [...] you attend congregation or Patient refused 2021 baptist services? Do [...] Admitting/Central Scheduling 09/06/2022 Appointment Radiology Alfredo Herrera O.P.[facility] [address] [place] [address] 09/06/2022 Office Visit Orthopedic Surgery Cyrus Polk M.D. [address] [place] [address] documented as of this encounter Procedures Procedure [...] Modality Head, Neuroradiology [facility], Neuroradiology [facility], N/A Computed Tomography Neuroradiology [facility], Other [...] documented as of this encounter Care Teams Cartographic Engineer Relationship Specialty Start Date End Date Elsewhere, Pcp PCP - General Family Medicine 12/25/21 documented as of this encounter
--- OUTSIDE RECORDS SUMMARY | 2022-08-14 17:46 | XMS_ITS | Encounter Summary ---
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 [address] [place] [id number] Weakness General (Primary Dx); 06/18/2022 Encounter [facility], Neftali García M.D. [address] [place] [phone] Incontinence Urinary; [facility], Saul Pollard M.D. [address] [place] [address] Pain Back; Domitilla Ataxia; Building, Third Repeated Fal ls; Floor Debility; [address] [facility] Primary Osteoarthritis Shoul marquis Left; [place], [place] Ataxia From [facility] Cerebrovascular Accident; [address] Stroke Cerebrovascular Accid ent Personal History; [phone] Fusion Cervical Spine Status Post; Fibromyalgia; Chronic [...] you attend religious or Patient refused 2021 evangelical services? Do [...] AM CDT DISCHARGE SUMMARY BRIEF OVERVIEW Hospital: [facility] Discharge Provider: Saul Pollard M.D. Primary Team: [facility] Medicine ([facility]) Primary Care Providers: Elsewhere, Pcp (General) No address on file Primary Care Provider Phone Number: None Primary Care Provider Fax Number: None Admission Date: 06/15/2022 Discharge Date: 06/18/2022 PRINCIPAL DIAGNOSIS Weakness General SECONDARY DIAGNOSES Principal Problem: Weakness General DISCHARGE DISPOSITION Home-Health Care [facility] [6] ACTIVE ISSUES REQUIRING FOLLOW [...] Scheduled Appointments 06/21/2022 11:00 AM PHR PHARMACIST [address] [place] [address] Pharmacy For appointment details refer to your Patient Appointment Guide. TEST RESULTS PENDING AT DISCHARGE Pending Labs Order Current Status Basic Metabolic Panel In process DETAILS OF HOSPITAL STAY REASON FOR ADMISSION Pain Back Weakness General Incontinence Urinary Ataxia Repeated Falls HOSPITAL COURSE Ms. Mosquera is hospitalized on [facility] Medicine ([facility]) for evaluation and management of Weakness [...] does not want to transition to a long-term facility currently. She will be stable to discharge once her MRI of the brain and spine results are back and if they are not concerning. Saul Pollard M.D. Maira Haynes M.D. - 06/17/2022 2:07 PM CDT DISCHARGE SUMMARY BRIEF OVERVIEW Hospital: [facility] Discharge Provider: Saul Pollard M.D. Primary Team: [facility] Medicine 4 ([facility]) Primary Care Providers: Elsewhere, Pcp (General) [...] HOSPITAL COURSE Ms. Mosquera is hospitalized on [facility] Medicine 4 ([facility]) for evaluation and management of Weakness [...] AM CDT You were discharged from the [facility] Medicine 4 ([facility]) Service. Please identify this service name [...] needed, Assistance with walking and moving around [facility] Discharge information provided on 06/16/2022 Contact information: [facility], [address], Tessie Arora - 06/17/2022 10:50 AM CDT Take a copy of this after visit summary to your appointment(s). REID NATH June 28, 2022 - Tuesday --10:00 AM - Hospital Follow-Up with Dr. Blackwell, primary care provider, at [facility] RECOMMENDATIONS: * * [facility] You may have outpatient appointments at [facility] that changed during your hospitalization. Refer to your [facility] Patient Visit Guide (PVG) for the most current schedule of appointments and detailed instructions of tests/procedures. Call [phone], if you did not receive an PVG or need to CANCEL any [facility] appointment(s). AttachmentsThe following attachments cannot be sent through Care Everywhere. Pregabalin (By mouth) (Bhutanese)Furosemide (By mouth) (Bhutanese)documented in this encounter Medications [...] THC multivit-min/iron/folic/ Take 1 tablet by 0 uqt200 (HAIR, SKIN AND mouth daily. NAILS ADVANCED [...] Discussed patient's care with PT Outcome Measures [facility] Inpatient Short Form: Putting on and taking [...] Standardized Score: 44.27 Interpretation: Clinicians answer the -[facility] Inpatient Short Form based on observed [...] Assistance with meal preparation, Assistance with financial legal assistant, Assistance with shopping, Assistance with housekeeping, Assistance [...] Melton M.D. - 06/17/2022 8:00 PM CDT [facility] 4 ([facility]) PROGRESS NOTE SUBJECTIVE No acute events [...] / PLAN Ms. Mosquera is hospitalized on [facility] Medicine 4 ([facility]) for evaluation and management of Weakness [...] Right Lives With: Alone Receives Help From: automat car attendant, Family, Friend(s) (Son lives in apt next to her.) ADL Assistance: Required assistance ADL Assistance Comments: Gets help from SPEECH ASSISTANT for her bath/shower 3x/week, and for her meals, RN once every 2 weeks. IADL/Homemaking Assistance: Required assistance IADL/Homemaking Assistance Comments: Gets help for housecleaning Driving: Does not drive Driving Comments: Friend assists Occupational Role: On disability Occupational Role Comments: Previously worked at a [employer] Prior Mobility/Functional Transfers Level of [place]: Needs assistance Gait Devices/Wheelchair Used Comments: No AD since [facility]. Home Equipment Home Adaptive Equipment: Medical [...] Additional Staff Present During Session: RN and superintendent transportation Outcome Measures [facility] Inpatient Short Form: -[facility] Basic Mobility (V.2) How much help [...] 3-5 steps with a railing?: A Lot -[facility] Basic Mobility (V.2) Raw Score: 21 -[facility] Basic Mobility (V.2) Standardized Score: 45.55 Interpretation: Clinicians answer the -[facility] Inpatient Short Form based on observed [...] patient wasunsure of a few. Consider outpatient [facility] pharmacy review Changes to medications anticipated at discharge:pending hospital course Marlene Wu Pharm.D., R.Ph. [phone] Marlene Wu PharmOj., R.Ph. - 06/16/2022 1:14 PM CDT Images from the original note were not included. Admission Medication History Note Medication list source: Patient + [facility] refill history (patient gets her scheduled medications [...] Take 150 mg by mouth every morning. mpgkwlnvti-hglsidgpozbdj-tsch (ESGIC) 50-325-40 mg per tablet Past Month [...] 1 spray as needed. 5 mg THC multivit-min/iron/folic/cak409 (HAIR, SKIN AND NAILS ADVANCED ORAL) Past [...] Cornelius). Per . Demetri, she lost her crutching contractor months ago so has not been able to charge the device. Device was interrogated, however, it was unable to connect to the systems programmer, likely due to the battery being depleted per patient report. wood technologist Mandy in room during interrogation and aware that device is off. Carley Mendez M.D. PGY-3, Anesthesiology and Perioperative Medicine documented in this encounter H&P Notes Renetta Michael M.D., M.S. - 06/15/2022 11:41 PM CDT Images from the original note were not included. [facility]ST Medicine 4 ([facility]) - ADMISSION NOTE Hospital Day 0 [...] but left AMA. She presented to the [place] [facility] 06/15. In the ED, she was [...] Urinalysis Case will be staffed with supervising office 365 consultant within 24 hours. Please page the [facility] Medicine 4 ([facility]) service pager at [phone] with questions or concerns. Renetta Michael M.D., M.S. PGY-3 [phone] Department of Internal Medicine Kiran Melton M.D. - 06/15/2022 12:05 AM CDT [facility] Medicine 4 ([facility]) Admission Note SUBJECTIVE CHIEF COMPLAINT Generalized [...] overflow incontinence. She was seen in the [place] ER a few days ago where they obtained a CT head without evidence for new infarct. She left against medical advice and came to [place] for re-evaluation. Upon arrival to the ED, [...] Take 150 mg by mouth every morning. fwiswrirvl-ptjemiqrgzbxk-jgdb (ESGIC) 50-325-40 mg per tablet, Take 1 [...] 1 spray as needed. 5 mg THC multivit-min/iron/folic/amp744 (HAIR, SKIN AND NAILS ADVANCED ORAL), Take [...] / PLAN Ms. Mosquera is hospitalized on [place] [address] ([facility]) for evaluation and management of Weakness [...] or life-threatening deterioration of the following conditions: MACHINE FASTENER failure or compromise Critical care was time [...] Grab Bars Support from family Home-Health Care [facility] OBJECTIVE Right Of Way Buyer met with patient to discuss final discharge plans. Patient is agreeable to restart her home health nursing and PRODUCT COORDINATOR along with PT. Patient will have her friend transport her home today. ASSESSMENT / PLAN Assessment The patient appear to have insight into the patient's needs at this time and are planning appropriately for discharge needs. They report agreement with the below plan with no further questions at this time. Plan [facility] Georgette RN: [phone] Home health requesting an AVS discharge summary [...] Cris Landin R.N. 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 IADL/Homemaking Assistance: Required assistance IADL/Homemaking Assistance Comments: Gets help for housecleaning Driving: Does not drive Driving Comments: Friend assists Occupational Role: On disability Occupational Role Comments: Previously worked at a [employer] Prior Mobility/Functional Transfers Level of [place]: Needs assistance Previous Transfer/Mobility Assistance Comments: Patient [...] quite lethargic, yet impulsive required assistance to [facility] gown and shoulder immobilizer to maximize [...] and patient's status was discussed Outcome Measures [facility] Inpatient Short Form: Putting on and taking [...] Standardized Score: 32.03 Interpretation: Clinicians answer the -[facility] Inpatient Short Form based on observed [...] Assistance with meal preparation, Assistance with financial legal assistant, Assistance with shopping, Assistance with housekeeping, Assistance [...] Planning Assessment SUBJECTIVE Assessment Information Referral Source: guard chief Referral Reason: Discharge Planning Primary Language: Bhutanese Quarter Seamer Services Used: No Person(s) present during interview: [...] Pleasant, Calm Communication: Talks, Understands speaking, Understands Bhutanese Shopping: Needs assistance Transportation: Support from family Medication Management: Independent Housekeeping: Dependent Meal Prep: Needs assistance Managing Finances: Needs assistance Assistive Devices: Cane, Tub/shower chair/bench Services/Resources: Home health Agency Name: Home health reconnect Services Provided: long-term twice monthly, PRODUCT COORDINATOR 3 times a week Baseline Services/Resources Primary care clinic and provider: ELSEWHERE, PCP Services/Resources: Home health Additional Resources: none Anticipated Needs Functional Status: Bathing, Dressing, Grooming/hygeine, Meal preparation, Medication set-up/administration, Housekeeping, Shopping, Transportation use (drive car, use taxi/bus) Assistive Devices: Tub/shower chair/bench, Grab bars - toilet, Grab bars - wall Services/Resources: Home health Agency Name: Home health reconnect Services Provided: long-term twice monthly, PRODUCT COORDINATOR 3 times a week Anticipated Modifications to the Patient's Home: Grab Bars Transportation Needs: Support from family Does the patient need discharge transport arranged?: No Phone Number for Ride/Caregiver: son or daughter Anticipated Discharge Destination: Home-Health Care [facility] ASSESSMENT / PLAN Assessment: The guard chief met with Angie Mosquera to discuss her current hospitalization and home goingneeds. The patient was unaccompanied. The patient was a reliable historian. The role of guard chief was reviewed. The patient reviewed her prior level of care and support system. The patient receives support from her daughter, son, and home care staff . The patient described her living environment as a apartment with elevator access with level entry. Housekeeping, grocery shopping, meal prep, and other household responsibilities have previously been completed by patient and patient's son. guard chief discussed the patient's potential needs at [facility] based on their home setting, [...] ADL's. She currently has home health through [facility] for long-term twice monthly and [facility] 3 times a week for 1 [...] identified the following as their current vendor(s): [facility]. After reviewing the patient's chart and meeting with the patient, the guard chief deemed the LACE+/readmission questions were appropriate. The [...] readmission could not have been prevented. The guard chief will share this information with the care team. The patient reports understanding that she will dismiss from the hospital when medically stable. Pending hospital course and medical readiness, no barriers to dismissal have been identified at this time. Plan: The patient agrees with the following plan. Patient's anticipated discharge disposition is: Home with Home Healthcare Reconnected: [facility] Transportation upon dismissal will be provided by family--son or daughter . guard chief recommended a shower seat, grab bars, home delivery of groceries, and reaching out to family, friends, and neighbors for assistance. guard chief provided information regarding the dismissal process and the Advance Health Care Planning: Making Your Wishes Known [id number] booklet along with education on the benefits of completing an advance directive and resources that may assist them in this process. The patient sharedno further questions or concerns regarding advance directives. The patient appears to have an understanding of how to complete an advance directive and reported awareness of resources to assist them. guard chief placed or requested the following hospital-based consult orders and/or referrals: PT/OT. guard chief will continue to assess for homegoing needs with the interdisciplinary team. guard chief encouraged the patient to reach out with any questions/concerns. Patient to discharge with home health care. [facility] Georgette RN: [phone] Home health requesting an AVS discharge summary [...] Prescriptions are provided by pain management through [facility] and her PCP Dr. [...] lumbosacral radicular pain, last reportedly revised at [facility] in 2019. The initial implant date is unknown. She had turned the device off for one her surgeries, then misplaced the systems programmer. She has received a new systems programmer, but has not gotten to using the new device. It is at her home. She thinks she has not used the SCS for several months. CURRENT MEDICATIONS: Acetaminophen 1 g four times a day Dlxwpvhnxwyvs-tivghgkf-ppjudbtjn-Lipoderm cream twice a day Diclofenac 1% gel [...] mg by mouth every morning. Past Week slcbjnlkod-zbwfjqvxnqbdi-gxsr (ESGIC) 50-325-40 mg per tablet Take 1 [...] as needed. 5 mg THC Past Week multivit-min/iron/folic/anr657 (HAIR, SKIN AND NAILS ADVANCED ORAL) Take [...] Daily Given, 1,000 mg at 06/16 1345 rdpnsvcsrxecb-httzslbd-gemhzeouw in Lipoderm 2%-0.5%-2% cream 1 g 1 [...] PRN Given, 100 mg at 06/16 921 xyecaigpya-vsrmvtshdwtof-kypo 50-325-40 mg per tablet 1 tablet (ESGIC) [...] R.N.) Respiratory Depth/Rhythm: Regular (06/15/228 : Asia oCrtez RBetsy, [facility]) PAIN PHYSICAL EXAM GENERAL: Pleasant, 57 [...] longitudinally with an outpatient pain provider at [facility]. Though she is on several MACHINE FASTENER acting medications that could increase the risk [...] organic cause for symptoms - work with [employer] to get her SCS therapy active in the outpatient setting Discussed with Pain Class B Truck Driver Dr. Kaushik Gustafson. Thank you for allowing the Inpatient Pain Service to be a part of Angie Mosquera's care. The [facility] Inpatient Pain Service will sign off. Please page [phone] with questions. nAthony Shepard PAna, Juice.P.Jolanta., C.S.C.S. 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 IADL/Homemaking Assistance: Required assistance IADL/Homemaking Assistance Comments: Gets help for housecleaning Driving: Does not drive Driving Comments: Friend assists Occupational Role: On disability Occupational Role Comments: Previously worked at a [employer] Prior Mobility/Functional Transfers Level of [place]: Needs assistance Gait Devices/Wheelchair Used Comments: No AD since shoulder [facility]. Home Equipment Home Adaptive Equipment: Medical alert [...] surgicalmask, eye protection, and gloves Outcome Measures -[facility] Inpatient Short Form: -[facility] Basic Mobility (V.2) How much help [...] 3-5 steps with a railing?: A Lot AM-[facility] Basic Mobility (V.2) Raw Score: 20 AM-[facility] Basic Mobility (V.2) Standardized Score: 43.99 Interpretation: Clinicians answer the -[facility] Inpatient Short Form based on observed [...] independent with ADLs but does have a SPEECH ASSISTANT 3 times per week to assist with [...] is currently below her functional baseline, declining long-term facility but agreeable to home health PT [...] She now presented to the ED at [facility] for a second opinion. Review of [...] (WELLBUTRIN XL) 150 mg, oral, Every morning ortgjkimyx-toxvmazqubpuq-wmrk (ESGIC) 50-325-40 mg per tablet 1 tablet, [...] 1 spray as needed. 5 mg THC multivit-min/iron/folic/gpz188 (HAIR, SKIN AND NAILS ADVANCED ORAL) 1 [...] PM CDT Care of patient transferred to ne by Scooter Tony. Disposition pending MRI with [...] have chronic pain and she lost the crutching contractor for her [employer] SCS device several months ago. An MRI [...] relieve her symptoms she was seen in [place] ER few days ago and had no [...] over the past weeks was recently evaluated [facility] which she had a CT of [...] as of 06/16/22 0848 TueJun 15, 2022 3593 Given patient's history exam I do have concern for possible underlying cauda equina given her recent falls increased back pain some lower leg weakness this could be secondary to other injury thus difficult to assess and urinary incontinence. Will page Neurology have them evaluate further. 1240 Patient continues to be a poor historian [...] medicine. 2025 Patient will go back to [place] awaiting a MRI and then disposition. 2025 [...] is a the provider I spoke with.Pager #[phone] Final Diagnoses: as of 06/16/22 0848 Weakness [...] a recent fall. Pt was seen in [place] yesterday. Ct scan performed. Pt is here for a second opinion. Elaine Winn R.N. 06/15/22 1108 documented in this encounter Miscellaneous Notes Hospital Course - Maira Haynes M.D. - 06/16/2022 7:30 AM CDT Ms. Mosquera is hospitalized on [facility] Medicine 4 ([facility]) for evaluation and management of Weakness [...] Appointment Radiology Alfredo Herrera O.P.A.-C. [address] [place] [address] 09/06/2022 Office Visit Orthopedic Surgery Cyrus Polk M.D. 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) Non-[facility] Outpatient Referral Routine Weakness Gen eral Ordered: [...] CBC without Differential (06/18/2022 7:50 AM CDT) [facility] gist Method Time Signature Hemoglobin 11.2 [...] Number [facility] - [address] [place], [place] [address] [facility] [place] [address] [facility] [address] Basic Metabolic Panel (06/18/2022 7:50 AM CDT) P athologist Signature Potassium, S [...] 06/18/2022 DTL Black/ mL/min/BSA 8:56 AM CDT Martiniquais Comment: ----ADDITIONAL INFORMATION---- Estimated GFR calculated using [...] Volume Laterality Blood (Blood, 06/18/2022 7:50 AM 07/22/20 22 8:35 Venous) CDT AM CDT Maira Haynes M.D. 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 The chicken ranch intraocular lenses are absent . 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 The chicken ranch intraocular lenses are absent . 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 The chicken ranch intraocular lenses are absent . 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 The chicken ranch intraocular lenses are absent . 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 The chicken ranch intraocular lenses are absent . 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 The chicken ranch intraocular lenses are absent . Mild mucosal [...] L1-2 through L3-4. Scooter Tony APRN, C.N.P. IM MRI PROCEDURES (ABNORMAL) CBC without Differential (06/17/2022 8:00 AM CDT) [facility] Method Time Signature Hemoglobin 10.5 (L) 11.6 [...] Phon e Number [facility] - [address] [place] [address] 05 [facility] [place] [address] [facility] 200 [facility] Basic Metabolic Panel (06/17/2022 8:00 AM CDT) [...] 06/17/2022 DTL Black/ mL/min/BSA 9:34 AM CDT Martiniquais Comment: ----ADDITIONAL INFORMATION---- Estimated GFR calculated using [...] Laterality Blood (Blood, 06/17/2022 8:00 AM 06/17/20 9:10 Venous) CDT AM CDT Maira Haynes M.D. LAB BLOOD ADD-ON Performing Organization Address [facility] Phon e Number [facility] - 200 [place], [place] [address] [place] [address] [facility] 200 [facility] (ABNORMAL) Dipstick, Urine (06/16/2022 9:32 AM CDT) [facility] gist Method Time Signature Hemoglobin, Large (A) [...] M.D. LAB URINE ORDERABLES Performing Organization Address City/[facility] Phon e Number [facility] - [address] [place] [address] 55 05 [place] [address] Laboratories-[address] Osmolality, Urine (06/16/2022 9:32 AM CDT) athologist Signature Osmolality, U 745 150 - 1150 06/16/2022 DT mOsm/kg 11:17 AM CDT Specimen Anatomical Collection Method Collection Time Receive d Time (Source) Location / / Volume Laterality Urine 06/16/2022 9:32 AM 2 CDT 10:39 AM CDT Maira Haynes M.D. LAB URINE ORDERABLES Performing Organization Address City/[facility]/ZIP [facility] Phon e Number [facility] - 200 [place] [address] pH, Random, Urine (06/16/2022 9:32 AM CDT) athologist Signature pH, Random, U 5.0 4.5 - 8.0 06/16/2022 DT 11:17 AM CDT Specimen Anatomical Collection Method Collection Time Receive d Time (Source) Location / / Volume Laterality Urine 06/16/2022 9:32 AM 2 CDT 10:39 AM CDT Maira Haynes M.D. LAB URINE ORDERABLES Performing Organization Address City/[facility]/ZIP Code Phon e Number [facility] - [address] (ABNORMAL) Microscopic Manual (06/16/2022 9:32 AM [...] M.D. LAB URINE ORDERABLES Performing Organization Address [facility] Phon e Number [facility] - 200 [place], [place] 55 05 [facility] [place] [address] [facility] 200 [facility] (ABNORMAL) Urinalysis with Microscopic: Urine, Catheter (06/16/2022 [...] M.D. LAB URINE ORDERABLES Performing Organization Address City/[facility]/ZIP Code Phon e Number [facility] - 200 [place], [place] [address] [address] [facility] [place] [address] [facility]-[address] Vitamin B12 Assay (06/16/2022 7:31 AM [...] Blood (Blood, 06/16/2022 7:31 AM 06/16/20 22 8:11 Venous) CDT AM CDT Kiran Melton M.D. LAB BLOOD ADD-ON Performing Organization Address City/[facility] Phon e Number [facility] - [address] Hemoglobin A1c (06/16/2022 7:31 AM CDT) [...] Address City/[facility] Phon e Number [facility] - [address] (ABNORMAL) CBC without Differential (06/16/2022 7:31 [...] [facility] - [address] [place], [place] [address] [address] [facility] [place] [address] [facility] [address] (ABNORMAL) Comprehensive Metabolic [...] 06/16/2022 DTL Black/ mL/min/BSA 8:22 AM CDT Martiniquais Comment: ----ADDITIONAL INFORMATION---- Estimated GFR calculated using [...] e Number [facility] - 200 [place], [place] [address] [facility] [place] [address] [facility] [address] Critical Care (06/15/2022 8:47 PM CDT) Narrative Scooter Tony APRN, C.N.P. - 06/15 8:47 PM CDT Scooter Tony APRN C.N.P. ? 06/15/2022 ??8:47 PM Critical Care Date/Time: 06/15/2022 8:47 PM Performed by: Scooter Tony APRN, C.N.P. Authorized by: Scooter Tony APRN, C.N.P. Critical care provider statement: Critical care total time (minutes): 45 Critical care time was exclusive of: sep aratemariana billable procedures and treating other patients Critical care was necessary to treat or prevent imminent or life-threatening deterioration of the fo llowing conditions: MACHINE FASTENER failure or compromise Critical care was time spent personally by me on the following activities: ordering and review of radiographic stud ies, ordering and review of laboratory studies, discussions with [facility] provider, discussions with consultants, examination of patient, rev iew of old charts and re-evaluation of patient's condition Scooter Tony APRN, C.N.P. PROCEDURE/MINOR SURGICA L ORDERABLES SARS Coronavirus 2, PCR Rapid, V Symptomatic (06/15/2022 7:51 PM CDT) [facility] Method Time Signature SARS CoV-2, Undetected Undetected 06/15/2022 [facility] PCR, Rapid, V 8:23 PM CDT Comment: ----ADDITIONAL INFORMATION---- This RT-PCR test was performed using the Tita SARS-CoV-2 and Influenza A/B Reagent assay from [employer], which has received Emergency Use Authori zation(EUA) by the U.S. Food and Drug Administration . Fact sheets for this Emergency Use Autho rization (EUA) assay can be found at the following link s: For Healthcare Providers: https://www.fda.gov/media/794328/downloa d For Patients: https://www.fda.gov/media/518748/downloa d SARS Coronavirus 2, Source, Rapid Swab, Nasopharynx 06/15/2022 7:58 PM CDT STMA Specimen Anatomical Collection Method Collection Time Receive d Time (Source) Location / / Volume Laterality Varies 06/15/2022 7:51 PM 7:58 (Nasopharynx) CDT PM CDT Scooter Tony APRN, C.N.P. LAB MICROBIOLOGY - GENE RAL ORDERABLES Performing Organization Address City/State/ZIP Code Phon e Number [facility] - [address] [place], [place] [address] [address] [place] [address] [facility] [address] Head Neck Angiogram with IV Contrast [...] 2H/6H, 5th Gen (06/15/2022 2:48 PM CDT) [facility] Method Time Signature Troponin T, 2 [...] 06/15/20 3:21 Venous) CDT PM CDT Narrative [facility] - 06/15/2022 3:54 PM CDT Specimen Information: Specimen ID: [id number] Specimen Type: Blood Specimen Collection Start Date: 06/15/20 ??2:48 PM Specimen Received Date: 06/15/2022 ??3:2 1 PM Specimen ID: [id number] Specimen Type: Blood Specimen Collection Start Date: 06/15/20 ??3:53 PM Specimen Received Date: 06/15/2022 ??3:5 3 PM Demarcus Ernst M.D. LAB BLOOD TROPONIN Performing Organization Address City/State/ZIP Code Phon e Number [facility] - [address] [place] [address] 559 [address] [place] [address] [facility] 200 [facility] DX Hip And Pelvis Left 2-3 Views [...] Signature Ventricular Rate 58 BPM MUSE ECG/Min MD Interval 154 ms MUSE QRSD Interval 102 ms MUSE QT Interval 442 ms MUSE QTC Interval 433 ms MUSE P [place] 48 degrees MUSE R [place] -1 degrees MUSE T Wave [place] 38 degrees MUSE Specimen Anatomical Collection Method [...] Organization Address City/State/ZIP Code Phon e Number VANDANA ROSS NA Troponin T, Baseline, 5th gen (06/15/2022 12:37 PM CDT) athologist Signature Troponin T, <6 <=10 ng/L 06/15/2022 STMA Baseline, 5th 1:37 PM CDT gen Specimen Anatomical Collection Method Collection Time Receive d Time (Source) Location / / Volume Laterality Blood (Blood, 06/15/2022 12:37 06/15/2022 1:03 Venous) PM CDT PM CDT Demarcus Ernst M.D. LAB BLOOD TROPONIN Performing Organization Address City/[facility] Code Phon e Number [facility] - [address] [place], [place] [address] [address] [place] [address] [facility] [address] (ABNORMAL) Hepatic Function [...] e Number [facility] - 200 [place], [place] [address] [address] [facility] [address] [facility] 200 [facility] Basic Metabolic Panel (06/15/2022 12:36 [...] CDT eGFR-Black/Afric >90 >=60 06/15/2022 STMA an Martiniquais mL/min/BSA 1:34 PM CDT Comment: ----ADDITIONAL INFORMATION---- [...] e Number [facility] - 200 [place], [place] [address] [address] [facility] [place] [address] [facility] 200 [address] [facility] (ABNORMAL) CBC with Differential, Blood (06/15/2022 12:36 PM CDT) [facility] Method Time Signature Hemoglobin 10.4 (L) [...] M.D. LAB BLOOD ADD-ON Performing Organization Address [facility] Phon e Number [facility] - 200 [place], [place] 55 05 [place] [id number] [place] [address] Prothrombin Time (PT) (06/15/2022 12:34 PM CDT) P athologist Signature Prothrombin 10.2 9.4 - 12.5 [facility], P sec 1:10 PM CDT INR 0.9 0.9 - 1.1 06/15/2022 [facility] 1[facility]10 PM CDT Comment: ----ADDITIONAL INFORMATION---- Standard [...] Address City/[facility] Phon e Number [facility] - 200 [place], [place] 55 05 [place] [address] Interpretation of Outside CT Spine (06/15/2022 [...] Anatomical Region Laterality Modality Head, Neuroradiology RST [facility], Neuroradiology [facility], N/A Computed Tomography Neuroradiology FLA LOS, Other [...] Given 06/17/2022 9:20 AM CDT 1,000 mg nwvaeeaqxyvzn-fzxzkkye-dvmnnwsae in Lipoderm Given 06/18/2022 10 :23 AM [...] Given 06/16/2022 9:16 AM CDT 150 mg bqdfrjxatz-kseetytqpketg-eqhl 50-325-40 mg Given 06/17 6:03 PM CDT [...] (TYLENOL) 0916 (Given - Provider: Gini Newberry RRebekah.)1345 (Given - Provider: Gini Newberry R.German.)1803 (Given - Provider: Gini Newberry R.German.)2106 (Given - Provider: Rufina Husain RBrittonN.) 0920 (Given - Provider: Gini Newberry R.N.)1153 (Not Given - Provider: Christiano Moon.German. - Reason: Patient not available)1602 (Not Given - Provider: Gini Newberry R.N. - Reason: Patient not available) 1019 (Given - Provider: Sharifa GavinNBritton) 1,000 mg, oral, 4 times daily, First dos e on Tue06/16/22 at 0800, Not to exceed 4 grams of acetaminophen in 24 hours all sources 2057 (Given - Provider: Erwin Tello R.N.) dehrpwrnourqr-bdprkray-nyctzcapo in Lipoderm 2%-0.5%-2 % cream 1 g 1344 (Given - Provider: Gini Newberry R.N.)2109 (Given - Provider: Rufina Husain R.N.) 09 (Given - Provider: Gini Newberry R.N.)2100 (Given - Provider: Erwin Tello R.N.) 102 (Given - Provider: Raquel Guajardo R.N.) 1 g, topical, 2 times daily, First dose on Tue06/16/22 at 0915 aprepitant capsule 40 mg (EMEND) 1315 (N ot Given - Provider: Gini Newberry R.N. - Reason: Other - Comment: possibly given on during procedure) 40 mg, oral, Once, On Tue06/17/22 at 1315, For 1 dose, Pre-Op aspirin tablet 325 mg 180 (Given - Provider: Gini heller R.N.) 180 [...] 09 (Given - Provider: Gini Newberry R.N.) 101 (G iven - Provider: Raquel Guajardo R.N.) 150 mg, oral, Every morning, First dose on Tue06/16/22 at 0900, Swallow whole. Do NOT crush, chew, or split tablet. cholecalciferol (vitamin D3) tablet 25 mcg (CANCELED) 0916 (Given - Provider: Gini Newberry R.N.) 25 mcg, oral, Daily, First dose on Tue at 0900, cholecalciferol (vitamin D3) orderable was interchanged for cholecalciferol (vitamin D3) tablet/capsule clindamycin 1 % external solution 1 application (CLEOC IN T) 0922 (Given - Provider: Gini Newberry R.N.)211 (Given - Provider: Rufina Husain R.N.) 09 (Given - Provider: Gini Newberry R.N.)210 (Given - Provider: Erwin Tello R.N.) 1025 (Not Given - Provider: Raquel arguelles RBrittonNBritton - Reason: Patient/family refused) 1 application, topical, 2 times daily, First dose on Tue06/16/22 at 0900 cyanocobalamin tablet 500 mcg (VITAMIN B12) 09 (Give n - Provider: Gini Newberry R.N.) 09 (Given - Provider: Gini Newberry R.N.) 1020 (G iven - Provider: Raquel Guajardo R.N.) 500 mcg, oral, Daily, First dose on Tue06/16/22 at 0900 diclofenac sodium 1 % gel 2 g (VOLTAREN) 1346 (Given - Provider: Gini Newberry R.N.)1817 (Given - Provider: Gini Newberry R.N.)211 (Given - Provider: Rufina Husain R.N.) 0925 (Given - Provider: Gini Newberry R.N.)1153 (Not Given - Provider: Gini Newberry R.N. - Reason: Patient not available)1602 (Not Given - Provider: Gini Newberry R.N. - Reason: Patient not available) 1024 (Not Given - Provider: Raquel arguelles R.NBritton - Reason: Patient/family refused) 2 g, topical, [...] First dose (after la st modification) on Tue06/17/22 at 0900, FLUoxetine orderable was interchanged for FLUoxetine tablet/capsule FLUoxetine tablet 10 mg (PROzac) (CANCELED) 0916 (Give n - Provider: Gini Newberry R.N.) 10 mg, oral, Daily, First dose on Tue at 0900, FLUoxetine orderable was interchanged for FLUoxetine tablet/capsule fluticasone furoate 100 mcg/actuation inhaler 1 puff ( ARNUITY ELLIPTA) 0921 (Given - Provider: Gini Newberry R.N.) 0921 [...] 0900 HYDROmorphone tablet 2 mg (DILAUDID) (COMPLETED) 7 (Given - Provider: Tiffanie Mills R.N.) 2 mg, oral, Once, On Tue06/16/22 at 0230, For 1 dose lamoTRIgine tablet 200 mg (LaMICtaL) 920 (Given - Pro vider: Gini Newberry R.N.)2108 (Given - Provider: Rufina Husain R.N.) 918 (Given - Provider: Gini Newberry R.N.)2057 (Given - Provider: Erwin Tello R.N.) 1018 (Given - Provider: Raquel Guajardo R.N.) [...] split tablet. pregabalin capsule 300 mg (LYRICA) 0916 (Given - Provi marquis: Gini Newberry R.N.)2108 [...] mg per tablet 1 tabl et (SENOKOT-S) 915 (Given - Provider: Gini Newberry R.N.)2110 (Not [...] maintain patency valACYclovir tablet 500 mg (VALTREX) 919 (Given - Pro vider: Gini Newberry R.N.) 0920 (Given - Provider: Gini Newberry R.N.) 1024 (G iven - Provider: Raquel Guajardo R.N.) 500 mg, oral, Daily, First dose on Tue at 0900, Drug Monitoring Program: Pharmacist to adjust medication dosing based on indication and drug clearance factors., Indications: Chickenpox/herpes zoster zonisamide capsule 300 mg (ZONEGRAN) 0916 (Given - Pro vider: iGni Newberry R.N.)2107 (Given - Provider: Rufina Husain R.N.) 09 (Given - Provider: Gini Newberry R.N.)2057 (Given - Provider: Erwin Tello R.N.) 1019 (Given - Provider: Raquel Guajardo R.N.) 300 [...] MDI (same frequency) benzonatate capsule 100 mg (TESSALON PERLSHAHZAD) 0921 (Giv en - Provider: Gini Newberry R.N.) 0339 (Given - Provider: Laquita rosa RBrittonN.)0920 (Given - Provider: Gini Newberry R.N.)2204 (Given - Provider: Erwin Tello R.N.) 0515 (Given - Provider: Erwin gimenez RBetsy) 100 mg, oral, 3 times daily PRN, cough, Starting on Tue06/16/22 at 0107, Swallow whole. Do NOT crush, chew or open capsule. dirrkoatyw-pnwrvlzoftzby-yahb 50-325-40 mg per tablet 1 tablet (ESGIC) 1359 (Given - Provider: Gini M Ojo Sarco, R.N.)2108 (Given - Provider: Sharifa TaylorNBritton) 1038 (Given - Provider: Kennedi Cabrera APRN, MACHINE FASTENER, M.S.N.)1803 (Given - Provider: Christiano Moon.NBritton) 1 tablet, oral, Every 6 hours PRN, migraine, Starting on 05/29 at 0107 diphenhydrAMINE-zinc acetate 1 % cream 1 application ( BENADRYL) 1431 (Given - Provider: Gini Newberry R.N.) 1 application, topical, 4 times daily MD N, itching, Starting on Tue06/16/22 at 0306 meclizine tablet 25 mg (ANTIVERT) 0920 (Given - Provid er: Gini Newberry R.N.) 0920 (Given - Provider: Gini Newberry R.N.)2204 (Given - Provider: Erwin Tello R.N.) 0515 (Given - Provider: Erwin gimenez R.NBritton) 25 mg, oral, Every 6 hours PRN, dizziness, Starting on Tue at 0111 melatonin tablet 1 mg 1 mg, oral, Bedtime PRN, sleep, Starting on Tue06/16/22 at 1336 ondansetron ODT disintegrating tablet 8 mg (ZOFRAN-ODT ) 2207 (Not Given - Provider: Laquita Calero RBetsy - Reason: Other - Comment: Wasted in Pyxis)2340 (Given - Provider: Laquita Calero R.N.) 8 mg, oral, 3 times daily PRN, nausea, S tarting on Tue06/16/22 at 0112, When splitting ODT at bedside, handle with gloves and a pill splitter to prevent moisture contact. oxyCODONE IR tablet 10 mg (ROXICODONE) 0544 (Given - P rovider: Tiffanie Mills R.N.)0959 (Given - Provider: Christiano Moon.German.)1345 (Given - Provider: Gini Newberry R.N.)1803 (Given - Provider: Gini Newberry R.N.) 0006 (Given - Provider: Laquita Calero R.N.)0919 (Given - Provider: Gini Newberry R.N.)1803 (Given - Provider: Gini Newberry R.N.)2204 (Given - Provider: Erwin Tello RBrittonN.) 0515 (Given - Provider: Ewrin gimenez R.N.)1024 (Given - Provider: Raquel Guajardo RBetsy) 10 mg, oral, Every 4 hours [...] ( COMPLETED) 1642 (Given - Provider: Sapphire Verma APRN, CHARTER AND TOUR BUS DRIVER, DNAP) 1 patch, transdermal, Administer over 72 [...] documented as of this encounter Care Teams Master Of Ceremonies Relationship Specialty Start Date End Date Elsewhere, Pcp PCP - General Family Medicine 12/25/21 documented as of this encounter
--- OUTSIDE RECORDS SUMMARY | 2022-08-14 17:46 | XMS_ITS | Encounter Summary ---
:1965 Author Organization [facility] Address [address] [place] [address] Care Team Providers Name Role Phone Elsewhere, Pcp Primary Care Provider Unavailable Reason for Visit Reason Comments xray results Encounter Details Date Type Department Care Team Description 06/10/2022 Clinical Communication Department of Cyrus Polk xr ay results Orthopedic Surgery in [place], [place] [address] [place] [address] 200 [place] [phone] Social History Tobacco Use Types Packs/Day Years [...] Cyrus Polk M.D. CT CT Job ID: [id number] documented in this encounter Miscellaneous Notes Telephone Encounter - Sosa Laughlin - 06/10/2022 11:51 AM CDT Patient is calling for xray results. Xrays from 06/07 are in qreads. Please call patient to discuss. Thank you documented in this encounter Plan of Treatment Upcoming Encounters Date Type Specialty Care Team Description 09/01/2022 Clinical Communication Admitting/Central Scheduling 09/06/2022 Appointment Radiology Alfredo Herrera O.P.A.-C. [address] [place] [phone] 09/06/2022 Office Visit Orthopedic Surgery Cyrus Polk M.D. [address] [place] [phone] documented as of this encounter Visit Diagnoses Not on filedocumented in this encounter Additional Health Concerns Assessment Noted Time PHQ-9 Depression Total Score: 16 02/11/2021 12:00 AM C DT documented as of this encounter Care Teams Loadmaster Relationship Specialty Start Date End Date Elsewhere, Pcp PCP - General Family Medicine 12/25/21 documented as of this encounter
--- OUTSIDE RECORDS SUMMARY | 2022-08-14 17:46 | XMS_ITS | Encounter Summary ---
:1965 Author Organization [facility] Address [address] [place] [address] Care Team Providers Name Role Phone Elsewhere, Pcp Primary Care Provider Unavailable Reason for Visit Reason Comments Scooter prescription Encounter Details Date Type Department Care Team Description 05/19/2022 Clinical Communication Department of Robert Diehl prescription Neurology in [place] Cel[place], [facility] [place], [place] [address] [place] [phone] [place], [place] [phone] (Work) [phone] Social History Tobacco Use Types Packs/Day Years [...] you attend sikh or Patient refused 2021 voodoo services? Do [...] yesterday and is currently still admitted to [facility] until tomorrow. I encouraged her to reach [...] Stroke Cerebrovascular Accident Personal History Olivia Pedroza, Duralumin Mechanic 05/19/22 11:51 AM CDT documented in this encounter Plan of Treatment Upcoming Encounters Date Type Specialty Care Team Description 09/01/2022 Clinical Communication Admitting/Central Scheduling 09/06/2022 Appointment Radiology Alfredo Herrera O.P.A.-C. [address] [place] [phone] 09/06/2022 Office Visit Orthopedic Surgery Cyrus Polk M.D. [address] [place] [address] documented as of this encounter Visit Diagnoses Not on filedocumented in this encounter Additional Health Concerns Assessment Noted Time PHQ-9 Depression Total Score: 16 02/11/2021 12:00 AM C DT documented as of this encounter Care Teams Bright Cutter Relationship Specialty Start Date End Date Elsewhere, Pcp PCP - General Family Medicine 12/25/21 documented as of this encounter
--- OUTSIDE RECORDS SUMMARY | 2022-08-14 17:46 | XMS_ITS | Encounter Summary ---
:1965 Author Organization [facility] Address [address] [place] [address] Care Team Providers Name Role Phone Elsewhere, [...] 09/06/2022 Appointment Radiology Alfredo Herrera O.P.A.-C. [address] [place] [phone] 09/06/2022 Office Visit Orthopedic Surgery Cyrus Polk M.D. [address] [place] [address] documented as of this encounter Procedures Procedure [...] documented as of this encounter Care Teams Quill Machine Tender Relationship Specialty Start Date End Date Elsewhere, Pcp PCP - General Family Medicine 12/25/21 documented as of this encounter
--- OUTSIDE RECORDS SUMMARY | 2022-08-14 17:46 | XMS_ITS | Encounter Summary ---
:1965 Author Organization [facility] Address [address] [place] [address] Care Team Providers Name Role Phone Elsewhere, Pcp Primary Care Provider Unavailable Reason for Visit Reason Comments Followup [facility] Patient Encounter Details Date Type Department Care Team Description 06/15/2022 Clinical Communication Department of [facility], Robert gay ([facility] Neurology in [place], Lilian Patient/) [place], [facility] [address] [place], [place] [address] [place] [phone] [place], [place] [phone] (Work) [phone] Social History Tobacco Use Types Packs/Day Years [...] you attend buddhism or Patient refused 2021 zoroastrian services? Do [...] She did end up being seeing in [place] and had a CT scan. I told her to followup with them and make sure that the images are sent here for Dr. Diehl to review. Caller was made aware of the two- to four-business day call turnaround time. Date last seen: 11/17/2021 Future appointment: None scheduled Dx: Stroke Cerebrovascular Accident Personal History Allyssa Amaya, Homicide Detective 06/15/22 8:18 AM CDT documented in this encounter Plan of Treatment Upcoming Encounters Date Type Specialty Care Team Description 09/01/2022 Clinical Communication Admitting/Central Scheduling 09/06/2022 Appointment Radiology Alfredo Herrera O.P.A.-C. [address] [place] [address] 09/06/2022 Office Visit Orthopedic Surgery Cyrus Polk M.D. [address] [place] [phone] documented as of this encounter Visit Diagnoses Not on filedocumented in this encounter Additional Health Concerns Assessment Noted Time PHQ-9 Depression Total Score: 16 02/11/2021 12:00 AM C DT documented as of this encounter Care Teams Manager Multimedia Relationship Specialty Start Date End Date Elsewhere, Pcp PCP - General Family Medicine 12/25/21 documented as of this encounter
--- OUTSIDE RECORDS SUMMARY | 2022-08-14 17:46 | XMS_ITS | Encounter Summary ---
:1965 Author Organization [facility] Address 200 [place] [address] Care Team Providers Name Role Phone Elsewhere, Pcp Primary Care Provider Unavailable Encounter Details Date Type Department Care Team Description 06/17/2022 Orders Only RST HIM Latrice, Chronic Pain Syndrome (Prima ry Dx); 200 [facility] Lilian Hughes Transient Ischemic Attack; [place], [place] 200 [facility] Fibromyalgia [phone] [place] [address] Social History Tobacco Use Types Packs/Day Years [...] you attend mandaeism or Patient refused 2021 protestant services? Do [...] Appointment Radiology Alfredo Herrera O.P.A.-C. [address] [place] [address] 09/06/2022 Office Visit Orthopedic Surgery Cyrus Polk M.D. [address] [place] [address] documented as of this encounter Visit Diagnoses Diagnosis Chronic Pain Syndrome - Primary Transient Ischemic Attack Fibromyalgia documented in this encounter Additional Health Concerns Assessment Noted Time PHQ-9 Depression Total Score: 16 02/11/2021 12:00 AM C DT documented as of this encounter Care Teams Return To Factory Clerk Relationship Specialty Start Date End Date Elsewhere, Pcp PCP - General Family Medicine 12/25/21 documented as of this encounter
--- OUTSIDE RECORDS SUMMARY | 2022-08-14 17:47 | XMS_ITS | Encounter Summary ---
:1965 Author Organization [facility] Address [address] [place] [address] Care Team Providers Name Role Phone Elsewhere, Pcp Primary Care Provider Unavailable Encounter Details Date Type Department Care Team Description 05/17/2022 Hospital Encounter Department of Alfredo Herrera Preo perative Exam Laboratory Medicine O.P.A.-C. and Pathology, [place] 200 [facility], in [place], [place] [phone] [place] [address] [place], [place] (Work) [phone] Social History Tobacco Use Types Packs/Day Years [...] you attend lutheran or Patient refused 2021 sikh services? Do [...] THC multivit-min/iron/folic/ Take 1 tablet by 0 oti414 (HAIR, SKIN AND mouth daily. NAILS ADVANCED [...] 09/06/2022 Appointment Radiology Alfredo Herrera O.PBrittonAOmar [address] [place] [phone] 09/06/2022 Office Visit Orthopedic Surgery Cyrus Polk M.D. [address] [place] [address] documented as of this encounter Procedures Procedure [...] Code Phon e Number [facility] - 200 [place], [place] [address] [place] [address] 200 [facility] Basic Metabolic Panel (05/17/2022 10:50 AM [...] 05/17/2022 DTL Black/ mL/min/BSA 12:12 PM CDT Citizen Of [place] Comment: ----ADDITIONAL INFORMATION---- Estimated GFR calculated using [...] Kamara LAB BLOOD ADD-ON Performing Organization Address City/[facility] Phon e Number [facility] - 200 [place], [place] [address] [facility] [place] [place] [address] 200 [facility] Type and Screen (with reflex Antibody ID) (05/17/2022 10:50 AM CDT) [facility] [employer] Method Time Signature ABORh A Neg Not 05/17/2022 ETRM applicable 7:10 PM CDT Antibody Negative Negative 05/17/2022 ETRM Screen 7:22 PM CDT Type & Screen 07/15/2022 05/17/2022 ETRM Expiration 23:59 7:10 PM CDT Testing [place] DEFAULT 05/17/2022 ETRM Location 12:24 PM CDT Specimen Anatomical Collection Method Collection Time Receive d Time (Source) Location / / Volume Laterality Blood (Blood, 05/17/2022 10:50 05/17/2022 Venous) AM CDT 12:24 PM CDT Alfredo Kamara LAB BLOOD BANK TEST ORDERABL ES Performing Organization Address City/[facility] Phon e Number [facility] - 200 [place], [place] [address] [facility] [place] [address] 200 [facility] (ABNORMAL) CBC with Differential, Blood (05/17/2022 10:50 AM CDT) [facility] Time Signature Hemoglobin 9.2 (L) 11.6 [...] Code Phon e Number [facility] - 200 [place], [place] [address] [facility] [place] [place] [address] [address] documented in this encounter Visit Diagnoses Diagnosis Preoperative Exam documented in this encounter Additional Health Concerns Infection Onset Date Last Indicated Resolved Time COVID19 Pending 05/17/2022 05/17/2022 05/17/2022 2:34 PM CDT Assessment Noted Time PHQ-9 Depression Total Score: 16 02/11/2021 12:00 AM C DT documented as of this encounter Care Teams Shingle Packer Relationship Specialty Start Date End Date Elsewhere, Pcp PCP - General Family Medicine 12/25/21 documented as of this encounter
--- OUTSIDE RECORDS SUMMARY | 2022-08-14 17:47 | XMS_ITS | Encounter Summary ---
:1965 Author Organization [facility] Address [address] [place] [address] Care Team Providers Name Role Phone Elsewhere, Pcp Primary Care Provider Unavailable Encounter Details Date Type Department Care Team Description 05/18/2022 Anesthesia Event RST SEBAS MORAN OR Kaushik Carpenter, [address] [facility] [place] [address] [address] [facility] [phone] [place] [phone] (Wo rk) Anesthesia Record Procedure Summary Procedure [...] h andoff to the receiving staff during main campus medical center we 1. Identified the patient [...] by Placement Time: 1220 Ihsan Patel APRN, DOUBLE CUT OFF SAW OPERATOR Ihsan Townsend APRN, (created via procedure DOUBLE CUT OFF SAW OPERATOR documentation); Mask Ventilation: Easy mask; Type: [...] Procedure Summary Date: 05/18/22 Room / Location: [place] [address] / [facility] in [place], [place] Anesthesia Start: 1214 Anesthesia Stop: 1415 [...] ETT location: oral VL device: glide scope [place] scope blade size: 3 Adult tube size: [...] diagnosis: Loose left total shoulder arthroplasty. Location: [place] [address] / [facility] in [place], [place] Providers: Cyrus Polk M.D. 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 Chronic pain - oxy 40 -50 mg daily. Baseline 06/06 Asthma, current smoker documented in this encounter Plan of Treatment Upcoming Encounters Date Type Specialty Care Team Description 09/01/2022 Clinical Communication Admitting/Central Scheduling 09/06/2022 Appointment Radiology Alfredo Herrera O.P.A.-C. [address] [place] [phone] 09/06/2022 Office Visit Orthopedic Surgery Cyrus Polk M.D. [address] [place] [phone] documented as of this encounter Procedures Procedure Name Priority Date/Time Associated Comments Diagnosis LDA ANE ENDOTRACHEAL Routine 05/18/2022 12:20 Res ults for this AIRWAY PM CDT procedure are i n the results section. MC ANE NERVE BLOCK Routine 05/18/2022 11:24 Resul ts for this WITH ULTRASOUND AM CDT procedure ar e in the results section. SD US GUIDE PLC NDL Routine 05/18/2022 11:24 Resu lts for this AM CDT procedure are i n the results section. SD INJ ANES BRACHIAL Routine 05/18/2022 11:24 Res [...] ETT location: oral VL device: glide scope [place] scope blade size: 3 Adult tube size: [...] no complications Kaushik Carlos, Ch.B. ANESTHESIA ORDERABLES SD INJ ANES BRACHIAL PLEX, SD US GUIDE [facility] NDL, MC ANE NERVE BLOCK WITH [...] documented as of this encounter Care Teams Piped Buttonhole Machine Operator Relationship Specialty Start Date End Date Elsewhere, Pcp PCP - General Family Medicine 12/25/21 documented as of this encounter
--- OUTSIDE RECORDS SUMMARY | 2022-08-14 17:47 | XMS_ITS | Encounter Summary ---
:1965 Author Organization [facility] Address [address] [place] [address] Care Team Providers Name Role Phone Elsewhere, Pcp Primary Care Provider Unavailable Encounter Details Date Type Department Care Team Description 05/11/2022 Clinical Communication Department of Cyrus Polk Orthopedic Surgery in [place], [place] [address] [place] [address] 200 [place] [phone] Social History Tobacco Use Types Packs/Day Years [...] you attend voodoo or Patient refused 2021 worship services? Do [...] Appointment Radiology Alfredo Herrera O.P.A.-C. [address] [place] [phone] 09/06/2022 Office Visit Orthopedic Surgery Cyrus Polk M.D. [address] [place] [phone] documented as of this encounter Visit Diagnoses Not on filedocumented in this encounter Additional Health Concerns Assessment Noted Time PHQ-9 Depression Total Score: 16 02/11/2021 12:00 AM C DT documented as of this encounter Care Teams Clinical Staff Rn Relationship Specialty Start Date End Date Elsewhere, Pcp PCP - General Family Medicine 12/25/21 documented as of this encounter
--- OUTSIDE RECORDS SUMMARY | 2022-08-14 17:47 | XMS_ITS | Encounter Summary ---
:1965 Author Organization [facility] Address [address] [place] [address] Care Team Providers Name Role Phone Elsewhere, Pcp Primary Care Provider Unavailable Encounter Details Date Type Department Care Team Description 05/18/2022 Surgery RST SEBAS MORAN OR Cyrus Polk, ARTHROPLASTY REPLACEMENT [address] [facility] [place] [address] [address] [facility] [phone] [place] [address] Social History Tobacco Use Types Packs/Day Years [...] you attend christian or Patient refused 2021 anabaptism services? Do [...] or the highest technical, or vocational p Car[employer] degree you have received? Sex Assigned at [...] AM CDT DISCHARGE SUMMARY BRIEF OVERVIEW Hospital: [facility] Discharge Provider: Cyrus Polk M.D. [...] R, M.D. RST ROEI OR DISCHARGE DISPOSITION [facility] Care [facility] [6] ACTIVE ISSUES REQUIRING FOLLOW UP This document serves as a prescription to continue physical therapy, medications, and labs or x-raysif ordered/required. If you have any questions or concerns about surgery or upcoming appointments, please do not hesitateto contact Dr. Polk's office at [phone] during regular business hours (8am-5pm M-F). For emergencies on the weekend or after hours, you may contact Dr. Polk's service via the [facility] single needle tufting machine operator at [phone]. Details for your 6 week follow-up appointment [...] to: Cyrus Polk MD Dept of Orthopedics [address], [address] None OUTPATIENT FOLLOW UP For appointment details [...] Cyrus Polk M.D.Jenna Zaldivar M.D.Kaushik Cadena M.D. [facility] SEBAS OR Angie Mosquera was taken [...] THC multivit-min/iron/folic/ Take 1 tablet by 0 [id number] (HAIR, SKIN AND mouth daily. NAILS ADVANCED [...] 6 pm, please page Jam service at [phone] For urgent matters from 6 pm until 6 am, please page [facility] [phone] Jane Nguyen PharmBrittonDBritton, R.Ph. - 05/19/2022 8:12 [...] at this time. Jane Nguyen Pharm.D., R.Ph. [phone] Kaushik Cadena M.D. - 05/19/2022 7:34 AM [...] 6 pm, please page Jam service at [phone] For urgent matters from 6 pm until 6 am, please page [facility] [phone] Paco Valentine - 05/18/2022 9:47 AM CDT Encounter: AM Admit Deanna Tradition: No anabaptism affiliation. Ms. Mosquera did not express any spiritual needs at this time. Plan: Will remain available for spiritual care as needed or requested. Chaplains can be contacted bypaging [phone] ([facility]). Rodrigo Preston, Pharm.D., R.Ph. - 05/18/2022 [...] Take 150 mg by mouth every morning. lvjytwivky-zqmrkaizgbrlg-jpzc (ESGIC) 50-325-40 mg per tablet Past Week [...] 1 spray as needed. 5 mg THC multivit-min/iron/folic/ppe721 (HAIR, SKIN AND NAILS ADVANCED ORAL) Past [...] (HCC) ??? Nicotine Dependence Unspecified ??? 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 Direct Infection [...] Profile Lives With: Alone Receives Help From: blower room attendant, Family, Friend(s) ADL Assistance: Required assistance ADL Assistance Comments: Gets help from [employer] for her bath/shower 3x/week, and for her meals IADL/Homemaking Assistance: Required assistance IADL/Homemaking Assistance Comments: Gets help for housecleaning Driving: Does not drive Driving Comments: takes her cane and medical alert with her. Occupational Role: On disability Occupational Role Comments: Previously worked at a [employer] and [employer] Prior Mobility/Functional Transfers Level of [place]: Needs assistance Previous Transfer/Mobility Assistance Comments: Patient [...] mask during therapy session: yes Outcome Measures -[facility] Inpatient Short Form: AM-[facility] Basic Mobility (V.2) How much [...] CENTER Basic Mobility (V.2) Raw Score: 18 -[facility] Basic Mobility (V.2) Standardized Score: 41.05 Interpretation: Clinicians answer the -[facility] [...] Nurse Referral Reason: Discharge Planning Primary Language: Israeli Build Technician Services Used: No Person(s) present during interview: Person(s) Present During Interview: patient History of Present Illness #1 Primary Osteoarthritis Shoulder Left Social History Support System: children, family caseworker/social science instructor, friends/neighbors and home care staff Patient's [...] Calm, Oriented Communication: Talks, Understands speaking, Understands Israeli Shopping: Needs assistance Transportation: Support from family Medication Management: Needs assistance Housekeeping: Needs assistance Meal Prep: Needs assistance Managing Finances: Independent Assistive Devices: Grab bars - wall, Eyeglasses Services/Resources: Other (comment) Agency Name: [facility] Provided: [employer] services 3x/week, nurse visits every other week Baseline Services/Resources Primary care clinic and provider: [facility] Phone: Fax: Anticipated Needs Functional Status: Transfer to/from bed, chair, etc., Bathing, Dressing, Grooming/hygeine, Housekeeping, Shopping, Meal preparation, Mobility, Medication set-up/administration, Transportation use (drive car, use taxi/bus) Services/Resources: Other (comment) Agency Name: [facility] Provided: [employer] services 3x/week, nurse visits every other week Transportation Needs: Support from family Does the patient need discharge transport arranged?: No Ride and Caregiver Arranged: Yes Anticipated Discharge Destination: Home-Health Care [facility] ASSESSMENT / PLAN Assessment: The chip loft worker met with Angie Mosquera to discuss her current hospitalization and home goingneeds. The patient was unaccompanied. The patient was a reliable historian. The role of chip loft worker was reviewed. The patient reviewed her prior level of care and support system. The patient receives support from her son, friends and home care staff. Patient reported her son lives in the same apartment as her. She also stated getting [employer] services 3x/week and a nurse visits her every other week. The patient described her living environment as a two bedroom apartment. Housekeeping, grocery shopping, meal prep, and other household responsibilities have previously been completed by patient, patient's son and patient's caregiver(s). chip loft worker discussed the patient's potential [facility] based on their home setting, previous needs and responsibilities, homebound status, and relevantassessments with the patient. The patient will be safe and supported to return home with [facility] or previous services noted above when medically ready. Support will be provided by son, friends and home care staff. The patient demonstrated understanding when discussing her home going plans and anticipated needs. At this time, the care team anticipates the patient requires the following service(s) to be reconnected: home healthcare. The patient identified the following as their current vendor(s): [facility]. During this visit patient verbalized she is hoping to increase her [employer] hours and also inq uired about getting a scooter to assist in her mobility. Patient went on to share she is unstable attimes due to her stroke history. She thought perhaps her neurology doctor would be able to help her get a scooter. RN CM recommended she follow up with the [facility] in regards to wanting more [employer] hours. She was also recommended to follow up with her primary care provider to provide durable medical equipment justification for a scooter, as she is currently hospitalized for orthopedic surgery. Patient verbalized understanding. Patient informed RN ROWAN would be reconnecting her [employer] services and nurse visits with [facility]. Patient agreeable to RN CM completing this and even provided RN CM the name and contact of her [employer] and RN. After reviewing the patient's chart and meeting with the patient, the chip loft worker deemed the LACE+/readmission questions were not necessary. The patient reports understanding that she will dismiss from the hospital when medically stable. Pending hospital course and medical readiness, no barriers to dismissal have been identified at this time. Plan: Patient to discharge with home health care. [facility] Contact: RADHA Palomino ATTN: Georgette NURSING: [...] directive. PRIMARY SERVICE: - Please provide a non-[place] home health order for resumption of previous [...] dismissal will be provided by family. 3. chip loft worker recommended reaching out to family, friends, and neighbors for assistance. 4. chip loft worker provided information regarding the dismissal process. 5. chip loft worker placed or requested the following hospital-based consult orders and/or referrals:None. 6. chip loft worker will continue to assess for homegoing needs with the interdisciplinary team. 7. chip loft worker encouraged the patient to reach out with [...] Patient will discharge to home with [facility] reconnect. Identify possible barriers to meeting goals/advancing plan of care: none End of Shift Summary: Patient stayed on schedule with prn pain meds (Tramadol and oxycodone) throughout the shift. Encouraged using ice packs to help with pain and swelling. Patient's primapore dressing was changed to Aquacell AG and is clean, dry and intact. Patient has baseline numb/tingling, moderate stitching machine setter, skin pink and warm with +2 pulses. Patient expects RN from [facility] to visit on Tuesday, May 24. Patient's friend will transport home. Medications including: oxycodone and tramadol were picked up [facility]. documented in this encounter OR Notes Op Note - Cyrus Polk M.D. - 05/18/2022 5:54 PM CDT STAFF: Cyrus Polk M.D. RESIDENT: Jenna Zaldivar M.D. PRE-OPERATIVE DIAGNOSIS Left dislocated reverse arthroplasty. POST-OPERATIVE DIAGNOSIS Left dislocated reverse arthroplasty. A first mate actively participated and was necessary for one [...] glenosphere, placement new humeral stem and tray, [id number] Cyrus Polk M.D. CT CT Job ID: [id number] documented in this encounter Miscellaneous Notes Hospital Course - Kaushik Cadena M.D. - 05/19/2022 12:18 PM CDT Surgery Information This Encounter Past Procedures (05/19/2021 to Today) Date Procedures Providers Location 05/18/2022 ARTHROPLASTY REPLACEMENT TOTAL SHOULDER. Cyrus Polk M.D.Wasserburger, Jory N, M.D.Markos, James R, M.D. [facility] SE[facility] OR Angie Mosquera was taken [...] Appointment Radiology Alfredo Herrera O.P.A.-C. [address] [place] [address] 09/06/2022 Office Visit Orthopedic Surgery Cyrus Polk M.D. [address] [place] [address] documented as of this encounter Procedures Procedure [...] with Differential, Blood (05/20/2022 3:43 AM CDT) [facility] Method Time Signature Hemoglobin 8.4 (L) [...] City/State/ZIP Code Phon e Number [facility] - [address] [place] [address] [facility] [place] [address] Laboratories-[facility] 200 [facility] (ABNORMAL) CBC with Differential, Blood (05/19/2022 3:26 AM CDT) [facility] Method Time Signature Hemoglobin 7.6 (L) [...] City/State/ZIP Code Phon e Number [facility] - [address] [place], [place] [address] [facility] [place] [address] [facility] [address] [facility] (ABNORMAL) Basic Metabolic Panel (05/19/2022 3:26 [...] 05/19/2022 DTL Black/ mL/min/BSA 4:38 AM CDT Australian Comment: ----ADDITIONAL INFORMATION---- Estimated GFR calculated [...] City/State/ZIP Code Phon e Number [facility] - [address] [place], [place] [address] [facility] [place] [address] [facility] [address] DX [...] in alignment. Negative for postoperative purposes. Jenna WEIG DIAGNOSTIC IMAGING PROCE [facility] Surgical Pathology, Frozen Lab (05/18/2022 1:04 PM CDT) Component Value Ref Test Analysis Performed At [facility] Range Method Time Signature 05/20/2022 METH [...] City/State/ZIP Code Phon e Number [facility] - [address] [place], [place] [address] [facility] [place] [address] [facility] [address] Bacteria Cult, Aerobe / Anaerobe+Susc (05/18/2022 1:03 PM CDT) [facility] Method Time Signature Bacteria Cult, No growth 06/01/2022 DTL Aerobe/Anaerob after 14 6:02 PM CDT e+Susc days of incubation. Specimen Anatomical Collection Method Collection Time Receive d Time (Source) Location / / Volume Laterality Shoulder, Left 05/18/2022 1:03 PM 022 5:21 CDT PM CDT Comment: Specimen Source Site: Tissue #1 Narrative [facility] - 06/01/2022 6:02 PM CDT Bacterial Culture: Placed in Bactec aero bic and Bactec anaerobic bottles Cyrus Polk M.D. LAB MICROBIOLOGY - GENERAL O RDSONIA Performing Organization Address City/[facility] Phon e Number [facility] - [address] [place], [place] [address] [place], [place] [id number] [place] [address] 200 [facility] Bacteria Cult, Aerobe / Anaerobe+Susc (05/18/2022 1:03 PM CDT) Patholo gist Method Time Signature Bacteria Cult, No growth 06/01/2022 DT Aerobe/Anaerob after 14 6:02 PM CDT e+Susc days of incubation. Specimen Anatomical Collection Method Collection Time Receive d Time (Source) Location / / Volume Laterality Shoulder, Left 05/18/2022 1:03 PM 022 5:12 CDT PM CDT Comment: Specimen Source Site: Tissue #3 Narrative [facility] - 06/01/2022 6:02 PM CDT Bacterial Culture: Placed in Bactec aero bic and Bactec anaerobic bottles Cyrus Polk M.D. LAB MICROBIOLOGY - GENERAL O MARY Performing Organization Address City/[facility] Phon e Number [facility] - [address] [place], [place] [address] [place] [address] [facility] 200 [facility] Bacteria Cult, Aerobe / Anaerobe+Susc (05/18/2022 1:03 PM CDT) Patholo gist Method Time Signature Bacteria Cult, No growth 06/01/2022 DTL Aerobe/Anaerob after 14 6:02 PM CDT e+Susc days of incubation. Specimen Anatomical Collection Method Collection Time Receive d Time (Source) Location / / Volume Laterality Shoulder, Left 05/18/2022 1:03 PM 022 5:07 CDT PM CDT Comment: Specimen Source Site: Tissue #2 Narrative [facility] - 06/01/2022 6:02 PM CDT Bacterial Culture: Placed in Bactec aero bic and Bactec anaerobic bottles Cyrus Polk M.D. LAB MICROBIOLOGY - GENERAL O RDERABLES Performing Organization Address City/State/ZIP Code Phon e Number [facility] - [address] [place], [place] [address] [facility] [place] [address] [facility] [address] documented in [...] Toscano R.N.)2339 (Given - Provider: Catalina Mccloud R.N.) 0511 (Given - Provider: Catalina Mccloud R.N.)1153 (Given - Provider: Isaura Vu R.N.)1725 (Given - Provider: Candace Lanza, Carole.S.N., R.N., O.C.N.) 0125 (Given - Provider: Rafal Waller M.S.NBritton, R.N.)0552 (Given - Provider: Jere Levy R.N.)1206 [...] (Given - Prov ider: Bettie Macias R.N.) 2225 (Given - Provider: Candace Lanza, Carole.S.N., R. N., O.C.N.) 80 mg, oral, Daily [...] (COMPLETED) 1240 (Given - Provider: Ihsan Townsend, NUCLEAR CRITICALITY SAFETY ENGINEER, SAP BASIS) 2,000 mg (rounded from 1,652.5 mg = [...] not swallow. furosemide tablet 40 mg (LASIX) 170 (Not Given - Prov ider: Corrie Toscano R.N. - Reason: Patient/family refused) 0849 (Given - Provider: Isaura Vu R.N.)1725 (Not Given - Provider: Candace Lanza M.S.NBritton, R.NBritton, O.C.N. - Reason: Contraindicated - Comment: patient having nausea/vomiting and low BP) 0909 (Not Given - Provider: Isaura Vu R.N. - Reason: Patient/family refused) 40 mg, oral, 2 times daily, First dose on Tue05/18/22 at 1700 ketorolac injection 15 mg (TORADOL) (COMPLETED) 170 ( Given - Provider: Corrie Toscano R.N.)2124 [...] (COMPLETED) 2340 (Bolus from Bag - Provider: aCtalina Mccloud R.N.) 500 mL, intravenous, at 500 mL/hr, Admin ister over 1 Hours, Once, On Tue05/18/22 at 2345, For 1 dose lamoTRIgine tablet 200 mg (LaMICtaL) 2051 (Given - Pro vider: Bettie Macias R.N.) 0848 (Given - Provider: Isaura Vu R.N.)2225 (Given - Provider: Candace Lanza M.S.NBritton, R.N., O.C.N. - Comment: pt request) 0909 [...] pantoprazole DR tablet 40 mg (PROTONIX) (CANCELED) 12 (Given - Provider: Catalina Mccloud R.N.) 40 [...] Isaura Vu R.N.)2224 (Given - Provider: Candace A Loveless, M.S.N., R.N., O.C.N. - Comment: pt request) 0907 (Given - Provider: Isaura Vu R.N.) 600 mg, oral, 2 times daily, First dose (after last modification) on Tue05/19/22 at 0900 QUEtiapine tablet 50 mg (SEROquel) 2051 (Given - Provi marquis: Bettie Macias R.N.) 2224 (Given - Provider: Candace guerra, M.S.N., R.N., O.C.N. - Comment: pt request) 50 mg, oral, Daily at bedtime, First dose on Tue05/18/22 at 2100 rOPINIRole tablet 2 mg (REQUIP) 2050 (Given - Provider: Pravin De La Rosa R.N.) 2224 (Given - Provider: Candace Lanza, Carole.S.N., R.N., O.C.N. - Comment: pt request) 2 mg, oral, Daily at bedtime, First dose on Tue05/18/22 at 2100 sennosides-docusate sodium 8.6-50 mg per tablet 1 tabl et (SENOKOT-S) 2051 (Given - Provider: Bettie Macias R.N.) 0849 (Given - Provider: Isaura Vu R.N.)2224 (Given - Provider: Carole Thorne.S.N., R.N., O.C.N. - Comment: pt request) 0908 (Given - Provider: Isaura Vu R.N.) 1 tablet, oral, 2 times daily, First dos e on Tue05/18/22 at 2100, Do not give if patient has diarrhea. tranexamic acid in NaCl IVPB 1,000 mg (CYKLOKAPRON) (C OMPLETED) 1240 (Given - Provider: Ihsan Townsend APRN, SAP BASIS) 1,000 mg (1 g), intravenous, at 300 [...] (CEPACOL) 0510 (Given - Provider: Catalina Mccloud RBetsy)1015 (Given - Provider: Isaura H Mirella, R.N.) 1 lozenge, oral, As needed, sore throat, Starting on Tue05/18/22 at 1608 benzonatate capsule 100 mg (TESSALON PERLES) 0501 (Given - Provider: Catalina Mccloud RBrittonN.)2233 (Given - Provider: Candace Lanza, Carole.S.N., R.N., [...] Vu RRebekah.)1957 (Given - Provider: Melissa Garcia R.N.)2241 (Given - Provider: Candace Lanza, Carole.S.N., R.N., O.C.N.) 400 mg of calcium, oral, [...] times daily PRN, muscle spasms, Starting on 05/18/22 at 1651 diphenhydrAMINE capsule 25 mg (BENADRYL) 1738 (Given - Provider: Corrie Toscano RBrittonN.) 0504 (Given - Provider: Catalina Mccloud RBrittonNBritton) [...] Eve Smith R.N.)1437 (Given - Provider: Eve Smith, R.N.) 25 mcg, intravenous, Every 2 min [...] 1120 (New Bag - Provider: Cristy Rosario, RBrittonN.) 20 mL/hr, intravenous, Once as needed, t o keep vein open, Starting on Tue05/18/22 at 1055, For 1 dose, Pre-Op midazolam (PF) injection 1 mg (VERSED) (CANCELED) 1119 (Given - Provider: Cristy Rosario, RBetsy) 1 mg, intravenous, Every 2 min [...] ondansetron (PF) injection 4 mg (ZOFRAN) 4 (Given - Provider: Jere Levy RBrittonN.) 1502 (Given - Provider: Kiana Ramírez RBrittonNBritton) [...] Toscano RBrittonN.)2339 (Given - Provider: Catalina Mccloud, R.N.) 0339 (Given - Provider: Catalina Mccloud R.N.)0742 (Given - Provider: Catalina Mccloud R.N.)1153 (Given - Provider: Isaura Vu R.N.) 10 mg, [...] Melissa Garcia R.N.) 012 (Given - Provider: Jonny PérezS.NBritton, R.N.)0552 (Given - Provider: Jere Levy R.N.)1004 (Given - Provider: Isaura Vu R.N. - Comment: per pt)1406 (Given - Provider: Sharifa CuevasNBritton) 15 mg, oral, Every 4 hours PRN, [...] over 3 days 1 patch (TRANSDERM S SUPERVISOR HISTOLOGY) (CANCELED) 1118 (Medication Applied - Provider: Cristy Rosario RBrittonNBritton) 1459 (Due: Medication Removed - Provider: Discharge [...] Vu R.N.) 0124 (Given - Provider: Carole Pérez.S.German., R.N.)0732 (Given - Provider: Isaura Vu R.N.)1359 (Given - Provider: Isaura Vu R.Milad) 100 mg, oral, Every 6 hours PRN, [...] R.N.)1209 (See Alternative - Provider: Isaura Vu RBrittonNBritton) 0124 (See Alternative - Provider: Leticia Pérez, R.N.)0732 (See Alternative - Provider: Isaura Vu R.N.)1357 (See Alternative - Provider: Isaura Vu R.N.) [...] documented as of this encounter Care Teams Fitting Room Maintenance Mechanic Relationship Specialty Start Date End Date Elsewhere, Pcp PCP - General Family Medicine 12/25/21 documented as of this encounter
--- OUTSIDE RECORDS SUMMARY | 2022-08-14 17:47 | XMS_ITS | Encounter Summary ---
:1965 [facility] Address [address] [place] [address] Care Team Providers Name Role Phone Elsewhere, Pcp Primary Care Provider Unavailable Reason for Referral Outpatient (Routine) - Closed Specialty Diagnoses / Procedures Referred By Contact Refer red To Contact Social Work Diagnoses Pain Shoulder Left Preoperative Exam Jenna Zaldivar [place] M.D. Referral ID Status Reason Start Date Expiration Date Visits Requ ested Visits Authorized [id number] Closed 05/10/2022 05/10/2023 1 1 Reason for Visit Reason Comments Pre-visit Testing Orders Encounter Details Date Type Department Care Team Description 05/07/2022 Clinical Communication Department of Jam, Pre- visit Testing Orthopedic Surgery Cyrus Souza M.D. Orders in [address] [place] [phone] [place], [place] [phone] (Work) [phone] Social History Tobacco Use Types Packs/Day Years [...] you attend mandaen or Patient refused 2021 caodaism services? Do [...] or the highest technical, or vocational p [employer] degree you have received? Sex Assigned at Date Recorded Female 03/01/2019 10:12 AM CDT documented as of this encounter Miscellaneous Notes Telephone Encounter - Deann Watkins - 05/07/2022 8:02 AM CDT Please sign order documented in this encounter Plan of Treatment Upcoming Encounters Date Type Specialty Care Team Description 09/01/2022 Clinical Communication Admitting/Central Scheduling 09/06/2022 Appointment Radiology Alfredo Herrera O.P.A.-C. [address] [place] [phone] 09/06/2022 Office Visit Orthopedic Surgery Cyrus Polk M.D. [address] [place] [phone] Scheduled Referrals Name Type Priority Associated Diagnoses Order S chedule Social Work - Outpatient Referral Routine Pain Shoulde r Left Expected: General consult Preoperative Exam 022 (clinic) (Approximate), Expires: 08/07/2023 documented as of this encounter Visit Diagnoses Diagnosis Pain Shoulder Left - Primary Preoperative Exam documented in this encounter Additional Health Concerns Assessment Noted Time PHQ-9 Depression Total Score: 16 02/11/2021 12:00 AM C DT documented as of this encounter Care Teams Hand Suture Winder Relationship Specialty Start Date End Date Elsewhere, Pcp PCP - General Family Medicine 12/25/21 documented as of this encounter
--- OUTSIDE RECORDS SUMMARY | 2022-08-14 17:47 | XMS_ITS | Encounter Summary ---
:1965 Author Organization [facility] Address [address] [place] [address] Care Team Providers Name Role Phone Elsewhere, Pcp Primary Care Provider Unavailable Encounter Details Date Type Department Care Team Description 05/03/2022 Hospital Encounter Department of Laboratory Shauna Rubin, Anemia Medicine and Pathology, [facility] [address] [place] [phone] [phone] (Wo rk) Social History Tobacco Use Types [...] you attend pentecostal or Patient refused 2021 restoration services? Do [...] THC multivit-min/iron/folic/ Take 1 tablet by 0 [id number] (HAIR, SKIN AND mouth daily. NAILS ADVANCED [...] 09/06/2022 Appointment Radiology Alfredo Herrera O.P.A.-C. 200 [place] [address] 09/06/2022 Office Visit Orthopedic Surgery Cyrus Polk M.D. 200 [place] [address] documented as of this encounter Procedures Procedure [...] Venous) AM CDT 10:53 AM CDT Narrative [facility] - 05/03/2022 11:47 AM CDT Specimen Information: Specimen ID: [id number] Specimen Type: Blood Specimen Collection Start Date: 10:11 AM Specimen Received Date: 05/03/2022 10:53 AM Specimen ID: [id number] Specimen Type: Blood Specimen Collection Start Date: 2 10:11 AM Specimen Received Date: 05/03/2022 10:53 AM Specimen ID: [id number] Specimen Type: Blood Specimen Collection Start Date: 10:11 AM Specimen Received Date: 05/03/2022 10:53 AM Specimen ID: [id number] Specimen Type: Blood Specimen Collection Start Date: 2 10:11 AM Specimen Received Date: 05/03/2022 10:32 AM Specimen ID: [id number] Specimen Type: Blood Specimen Collection Start Date: 10:11 AM Specimen Received Date: 05/03/2022 11:44 AM Shauna Rubin APRN C.N.P., M.S.N. LAB BLOOD ADD-ON Performing Organization Address City/State/ZIP Code Phon e Number [place] [address] [place], [place] [address] [facility] [address] [facility] [address] documented in this encounter Visit Diagnoses Diagnosis Anemia documented in this encounter Additional Health Concerns Assessment Noted Time PHQ-9 Depression Total Score: 16 02/11/2021 12:00 AM C DT documented as of this encounter Care Teams Ui Software Engineer Relationship Specialty Start Date End Date Elsewhere, Pcp PCP - General Family Medicine 12/25/21 documented as of this encounter
--- OUTSIDE RECORDS SUMMARY | 2022-08-14 17:47 | XMS_ITS | Encounter Summary ---
:[address] [facility] Address [address] [place] [address] Care Team Providers Name Role Phone Elsewhere, Pcp Primary Care Provider Unavailable Encounter Details Date Type Department Care Team Description 04/21/2022 Clinical Communication Department of Cyrus Polk Orthopedic Surgery in Lilian Souza [place], [place] [address] [place] [address] 200 [place] [phone] Social History Tobacco Use Types Packs/Day Years [...] you attend islam or Patient refused 2021 temple services? Do [...] something else is going on . Angie [phone] documented in this encounter Plan of Treatment Upcoming Encounters Date Type Specialty Care Team Description 09/01/2022 Clinical Communication Admitting/Central Scheduling 09/06/2022 Appointment Radiology Alfredo Herrera O.P.A.-C. [address] [place] [address] 09/06/2022 Office Visit Orthopedic Surgery Cyrus Polk M.D. [address] [place] [address] documented as of this encounter Visit Diagnoses Not on filedocumented in this encounter Additional Health Concerns Assessment Noted Time PHQ-9 Depression Total Score: 16 02/11/2021 12:00 AM C DT documented as of this encounter Care Teams Literacy Tutor Relationship Specialty Start Date End Date Elsewhere, Pcp PCP - General Family Medicine 12/25/21 documented as of this encounter
--- OUTSIDE RECORDS SUMMARY | 2022-08-14 17:47 | XMS_ITS | Encounter Summary ---
:1965 Author Organization [facility] Address [address] [place] [address] Care Team Providers Name Role Phone Elsewhere, Pcp Primary Care Provider Unavailable Reason for Visit Outpatient (Routine) - Closed Specialty Diagnoses / Procedures Referred By Contact Refer red To Contact Diagnoses Painful Total Joint Arthroplasty Initial ([facility]) Alfredo Herrera [place] Procedures ORS US-Guided aspiration/injection O.P.A.-C. [address] [place] [address] [phone] Referral ID Status Reason Start Date Expiration Date Visits Requ ested Visits Authorized [id number] Closed 04/02/2022 04/02/2023 1 1 Encounter Details Date Type Department Care Team Description 04/14/2022 Procedure visit Department of Jey Monzon To beto Joint Orthopedic Surgery in Lilian Celaya Arthroplasty Initial [place], [place] [address] [place] [address] ([facility]) [address] [place] [phone] Social History Tobacco Use Types Packs/Day Years [...] you attend pentecostal or Patient refused 2021 taoism services? Do you belong to any clubs or No 05/17/2022 organizations such as pentecostal groups, unions, fraPathway Lending or athletic groups, or school groups? How [...] was performed by Carmelo Guo M.D., M.S. ([phone]). HISTORY: The patient was recently evaluated for [...] and sterile ultrasound gel were used. Machine: Midisolaire Transducer: 6-15 MHz linear transducer. Patient position: [...] Mosquera Barriers to learning: None Preferred language: Swedish Learning preferences include: Seeing and doing. Discussed: [...] preparation: chlorhexidine/alcohol Images have been archived in [employer]: click the 'Dept Filter' button in [employer], then the 'Clear (ShowAll)' button, then OK. documented in this encounter Plan of Treatment Upcoming Encounters Date Type Specialty Care Team Description 09/01/2022 Clinical Communication Admitting/Central Scheduling 09/06/2022 Appointment Radiology Alfredo Herrera O.P.A.-C. [address] [place] [address] 09/06/2022 Office Visit Orthopedic Surgery Cyrus Polk M.D. [address] [place] [address] documented as of this encounter Procedures Procedure Name Priority Date/Time Associated Diagnosis Comme nts BACTERIA CULT, Routine 04/14/2022 9:35 AM Results for this AEROBE/ANAEROBE+CARRIE CDT procedur e are in C the results section. CELL COUNT AND Routine 04/14/2022 9:35 AM Results for this DIFFERENTIAL, BF CDT procedure a re in the results section. MA ARTHCS ASP/INJ Routine 04/14/2022 9:30 AM Painful Total Aliza nt Results for this MJR JT W US CDT Arthroplasty Initial procedu re are in (HCC) the results section. documented in this encounter Results Bacteria Cult, Aerobe / Anaerobe+Susc (04/14/2022 9:35 AM CDT) [facility] gist Method Time Signature Bacteria Cult, No growth 04/28/2022 DTL Aerobe/Anaerob after 14 11:02 AM CDT e+Susc days of incubation. Specimen Anatomical Collection Method Collection Time Receive d Time (Source) Location / / Volume Laterality Synovial Fluid, 04/14/2022 9:35 AM 2021 Left Shoulder CDT 10:18 AM CDT Comment: Specimen Source Site: Aspirate Narrative [facility] - 04/28/2022 11:02 AM CDT Bacterial Culture: Received Bactec aerob ic and Bactec anaerobic bottles Alfredo Kamara LAB MICROBIOLOGY - GENERAL O PATERABLES Performing Organization Address City/State/ZIP Code Phon e Number [facility] - [address] [place] [address] [facility] [place] [address] Laboratories-[facility] [address] [facility] Cell Count and Differential, Body Fluid (04/14/2022 9:35 AM CDT) [facility] gist Method Time Signature Fluid Type Right [...] performance characteri stics were determined by [facility] in a manner co nsistent with CLIA [...] Code Phon e Number [facility] - [address] [place], [place] [address] [place] [address] [facility] [address] [place] ARTHCS ASP/INJ MJR JT W US (04/14/2022 [...] as of this encounter Care Teams Rn Referral Relationship Specialty Start Date End Date Elsewhere, Pcp PCP - General Family Medicine 12/25/21 documented as of this encounter
--- OUTSIDE RECORDS SUMMARY | 2022-08-14 17:47 | XMS_ITS | Encounter Summary ---
:1965 Author Organization [facility] Address [address] [place] [address] Care Team Providers Name Role Phone Elsewhere, Pcp Primary Care Provider Unavailable Reason for Referral Outpatient (Routine) - Closed Specialty Diagnoses / Procedures Referred By Contact Refer red To Contact Orthopedic Surgery Diagnoses Pain Shoulder Left [facility] 200 [place] [address] Referral ID Status Reason Start Date Expiration Date Visits Requ ested Visits Authorized [id number] Closed 04/22/2022 04/22/2023 1 1 Reason for Visit Reason Comments pre op orders Encounter Details Date Type Department Care Team Description 04/22/2022 Clinical Communication Department of Cyrus Polk op orders Orthopedic Surgery in Lilian Souza [place], [place] [address] [place] [address] [phone] Social History Tobacco Use Types Packs/Day Years [...] you attend religion or Patient refused 2021 rastafarian services? Do you belong to any clubs or No 05/17/2022 organizations such as religion groups, unions, fraAcceptd or athletic groups, or school groups? How [...] Appointment Radiology Alfredo Herrera O.P.A.-CBritton [address] [place] [address] 09/06/2022 Office Visit Orthopedic Surgery Cyrus Polk M.D. [address] [place] [address] Scheduled Referrals Name Type Priority Associated Order [...] 05/17/2022 DTL Black/ mL/min/BSA 12:12 PM CDT Luxembourger Comment: ----ADDITIONAL INFORMATION---- Estimated GFR [...] Kamara LAB BLOOD ADD-ON Performing Organization Address City/[facility] Phon e Number [facility] - [address] [place] [address] [facility] [place] [place] [address] Laboratories-[facility] 200 [facility] Type and Screen (with reflex Antibody ID) (05/17/2022 10:50 AM CDT) [facility] Method Time Signature ABORh A Neg Not [...] BANK TEST ORDERABL ES Performing Organization Address City/[facility] Phon e Number [facility] - [address] [place] [address] [facility] [place] [address] Laboratories-[facility] 200 [facility] (ABNORMAL) CBC with Differential, Blood (05/17/2022 10:50 AM CDT) [employer] Method Time Signature Hemoglobin 9.2 (L) 11.6 [...] Address City/State/ZIP Code Phon e Number [facility] - [address] [place] [address] [facility] [place] [address] Laboratories-[address] SARS Coronavirus 2, Molecular Detection, PCR, Varies Asymptomatic (05/17/2022 10:26 AM CDT) [facility] Method Time Signature COVID-19, Swab, 05/17/2022 DTL [...] ----ADDITIONAL INFORMATION---- This RT-PCR test using the [employer] SARS-Co V-2 Assay ( [employer]way.) performed on the [employer]ARD[employer] Two Module System has received Emergency Use Authorization (EUA) by the U.S. Food and Drug Administration, and is modified from the fire loss prevention engineer's instructions with a bridging study. Performance characteristics were verifie d by [facility] in a manner consistent with CLIA requirements. Visit the CDC website: https://www.cdc.g ov/coronavirus/ for the most recent guidelines on [facility] virus testing. Fact Sheet for Healthcare Providers: https://www.fda.gov/media/645918/downloa d Fact Sheet for Patients: https://www.fda.gov/media/270364/downloa d Specimen Anatomical Collection Method Collection Time Receive d Time (Source) Location / / Volume Laterality Varies 05/17/2022 10:26 05/17/2022 (Nasopharynx) AM CDT 10:52 AM CDT Alfredo Kamara LAB MICROBIOLOGY - GENERAL O RDERABLES Performing Organization Address City/State/[facility] Code Phon e Number [facility] - [address] [place], [place] [address] [facility] [place] [place] [address] Laboratories-[facility] [address] documented in this encounter Visit Diagnoses Diagnosis Pain Shoulder Left - Primary Preoperative Exam documented in this encounter Additional Health Concerns Assessment Noted Time PHQ-9 Depression Total Score: 16 02/11/2021 12:00 AM C DT documented as of this encounter Care Teams Expert Witness Relationship Specialty Start Date End Date Elsewhere, Pcp PCP - General Family Medicine 12/25/21 documented as of this encounter
--- OUTSIDE RECORDS SUMMARY | 2022-08-14 17:47 | XMS_ITS | Encounter Summary ---
:1965 Author Organization [facility] Address [address] [place] [address] Care Team Providers Name Role Phone Elsewhere, Pcp Primary Care Provider Unavailable Reason for Visit Reason Comments pre op orders Encounter Details Date Type Department Care Team Description 04/02/2022 Clinical Communication Department of Cyrus Polk op orders Orthopedic Surgery in Lilian Souza [place], [place] [address] [place] [address] 200 [place] [phone] Social History Tobacco Use Types Packs/Day Years [...] you attend lutheran or Patient refused 2021 sabianist services? Do [...] Appointment Radiology Alfredo Herrera O.P.A.-C. [address] [place] [address] 09/06/2022 Office Visit Orthopedic Surgery Cyrus Polk M.D. [address] [place] [address] documented as of this encounter Visit Diagnoses Not on filedocumented in this encounter Additional Health Concerns Assessment Noted Time PHQ-9 Depression Total Score: 16 02/11/2021 12:00 AM C DT documented as of this encounter Care Teams Rn Surgical Pcu Relationship Specialty Start Date End Date Elsewhere, Pcp PCP - General Family Medicine 12/25/21 documented as of this encounter
--- OUTSIDE RECORDS SUMMARY | 2022-08-14 17:47 | XMS_ITS | Encounter Summary ---
:1965 Author Organization [facility] Address [address] [place] [address] Care Team Providers Name Role Phone Elsewhere, Pcp Primary Care Provider Unavailable Reason for Visit Outpatient (Routine) - Closed Specialty Diagnoses / Procedures Referred By Contact Refer red To Contact Orthopedic Surgery Diagnoses Pain Shoulder Left Preoperative Exam Alfredo Herrera, [facility] OP.A.-C [address] [place] [address] Referral ID Status Reason Start Date Expiration Date Visits Requ ested Visits Authorized [id number] Closed 04/22/2022 04/22/2023 1 1 Encounter Details Date Type Department Care Team Description 05/17/2022 Office Visit Department of Cyrus Polk, Raul Shou lder Left; Orthopedic Surgery in M.D. Preoperative Exam [place], [place] [address] [facility] [address] [place] [phone] Social History Tobacco Use Types Packs/Day Years [...] you attend mandaeism or Patient refused 2021 mosque services? Do you belong to any clubs or No 05/17/2022 organizations such as mandaeism groups, unions, fraCoachClub or athletic groups, or school groups? How [...] may involve the use of a medical auditor made by a company [employer] I or one of my partners have collaborated to design, develop, or improve orthopedic implants, instruments, or products. Both the [facility] and the individual surgeons involved receive royalty payments from the use of those specific devices at other institutions, but no royalties or any other payments are paid for the use of those devices with any [facility] patient. The clinical rationale for the use of those devices as well as the availability and applicability of alternative devices was reviewed. He understands that the final decision for the use of a specific medical auditor often is made at the time of surgery. All of his questions were answered; he understands and agrees with my approach to device selection and wants to proceed. documented in this encounter Plan of Treatment Upcoming Encounters Date Type Specialty Care Team Description 09/01/2022 Clinical Communication Admitting/Central Scheduling 09/06/2022 Appointment Radiology Alfredo Herrera O.P.A.-C. [address] [place] [address] 09/06/2022 Office Visit Orthopedic Surgery Cyrus Polk M.D. [address] [place] [address] documented as of this encounter Visit Diagnoses Diagnosis Pain Shoulder Left Preoperative Exam documented in this encounter Additional Health Concerns Assessment Noted Time PHQ-9 Depression Total Score: 16 02/11/2021 12:00 AM C DT documented as of this encounter Care Teams Manager Hvac Relationship Specialty Start Date End Date Elsewhere, Pcp PCP - General Family Medicine 12/25/21 documented as of this encounter
--- OUTSIDE RECORDS SUMMARY | 2022-08-14 17:47 | XMS_ITS | Encounter Summary ---
:1965 Author Organization [facility] Address [address] [place] [address] Care Team Providers Name Role Phone Elsewhere, Pcp Primary Care Provider Unavailable Encounter Details Date Type Department Care Team Description 04/14/2022 Hospital Encounter Department of Alfredo Herrera Total Shoulder Replacement Status Post Left; Laboratory Medicine A, O.P.A.-C. Painful Total Joint Arthroplasty Initial (HCC) and Pathology, [address] [place] [address], in [place] [phone] [place] [phone] [place] [address] (Work) [place], [place] [phone] (Fax) [phone] Social History Tobacco Use Types Packs/Day Years [...] you attend christianity or Patient refused 2021 orthodox services? Do [...] THC multivit-min/iron/folic/ Take 1 tablet by 0 [id number] (HAIR, SKIN AND mouth daily. NAILS ADVANCED [...] 09/06/2022 Appointment Radiology Alfredo Herrera O.P.A.-C. 200 [place] [address] 09/06/2022 Office Visit Orthopedic Surgery Cyrus Polk M.D. 200 [place] [phone] (work) documented as of this encounter Procedures Procedure Name Priority Date/Time Associated Diagnosis Comme nts CBC WITHOUT Routine 04/14/2022 10:42 Painful Total Joint Resu lts for this DIFFERENTIAL, B AM CDT Arthroplasty Initial proc edure are in ([facility]) the results section. C-REACTIVE PROTEIN Routine 04/14/2022 10:42 Painful Total Join t Results for this (CRP), S/P AM CDT Arthroplasty Initial procedu re are in ([facility]) the results section. documented in this encounter Results CRP (C-Reactive Protein) (04/14/2022 10:42 AM CDT) athologist Signature C-Reactive <3.0 <=8.0 mg/L 04/14/2022 DTL Protein (CRP), 11:43 AM CDT S Specimen Anatomical Collection Method Collection Time Receive d Time (Source) Location / / Volume Laterality Blood (Blood, 04/14/2022 10:42 04/14/2022 Venous) AM CDT 11:20 AM CDT Alfredo Kamara LAB BLOOD ADD-ON Performing Organization Address City/State/ZIP Code Phon e Number [facility] - [address] [place] [address] [facility] [place] [address] Laboratories-[facility] 200 [facility] (ABNORMAL) CBC without Differential (04/14/2022 10:42 AM CDT) [facility] gist Method Time Signature Hemoglobin 8.6 (L) [...] Kamara LAB BLOOD ADD-ON Performing Organization Address City/State/[facility] Code Phon e Number [facility] - [address] [place], [place] [address] [facility] [place] [address] Laboratories-[facility] [address] documented in this encounter Visit Diagnoses Diagnosis Arthroplasty Total Shoulder Replacement Status Post Left Painful Total Joint Arthroplasty Initial (HCC) documented in this encounter Additional Health Concerns Assessment Noted Time PHQ-9 Depression Total Score: 16 02/11/2021 12:00 AM C DT documented as of this encounter Care Teams Salesperson Women'S Dresses Relationship Specialty Start Date End Date Elsewhere, Pcp PCP - General Family Medicine 12/25/21 documented as of this encounter
--- OUTSIDE RECORDS SUMMARY | 2022-08-14 17:47 | XMS_ITS | Encounter Summary ---
:1965 Author Organization [facility] Address 200 [place] [address] Care Team Providers Name Role Phone Elsewhere, Pcp Primary Care Provider Unavailable Reason for Visit Reason Comments Discharge Planning Discharge Planning Encounter Details Date Type Department Care Team Description 05/06/2022 Clinical Communication Department of Kaushik Portillo Di scharge Planning Orthopedic Surgery R.N. (Discharge in [place] [address] [facility] Planning) [place], [place] [address] [place] [address] [place], [place] [phone] (Work) [phone] Social History Tobacco Use Types Packs/Day Years [...] you attend moravian or Patient refused 2021 mormonism services? Do [...] home. The role of the caregiver and refuse driver will be filled by the patient's [...] to her history of falling. I encourage Ortho.Bow Maker Gift Wrapping to contact this patient, prior to surgery, [...] Appointment Radiology Alfredo Herrera O.P.A.-C. [address] [place] [address] 09/06/2022 Office Visit Orthopedic Surgery Cyrus Polk M.D. [address] [place] [address] documented as of this encounter Visit Diagnoses Not on filedocumented in this encounter Additional Health Concerns Assessment Noted Time PHQ-9 Depression Total Score: 16 02/11/2021 12:00 AM C DT documented as of this encounter Care Teams Equipment Service Technician Relationship Specialty Start Date End Date Elsewhere, Pcp PCP - General Family Medicine 12/25/21 documented as of this encounter
--- OUTSIDE RECORDS SUMMARY | 2022-08-14 17:47 | XMS_ITS | Encounter Summary ---
:1965 Author Organization [facility] Address [address] [place] [address] Care Team Providers Name Role Phone Elsewhere, Pcp Primary Care Provider Unavailable Reason for Visit Reason Comments Pre-visit Intake Encounter Details Date Type Department Care Team Description 05/12/2022 Clinical Communication Department of Cyrus Polk e-visit Intake Orthopedic Surgery [place]ian Souza in [address] [place] [address] [place], [place] [phone] (Work) [phone] Social History Tobacco Use Types Packs/Day Years [...] you attend religious or Patient refused 2021 confucianist services? Do [...] Admitting/Central Scheduling 09/06/2022 Appointment Radiology Alfredo Herrera O.P.AOmar [address] [place] [phone] 09/06/2022 Office Visit Orthopedic Surgery Cyrus Polk M.D. [address] [place] [address] documented as of this encounter Visit Diagnoses Not on filedocumented in this encounter Additional Health Concerns Assessment Noted Time PHQ-9 Depression Total Score: 16 02/11/2021 12:00 AM C DT documented as of this encounter Care Teams Forestry Adviser Relationship Specialty Start Date End Date Elsewhere, Pcp PCP - General Family Medicine 12/25/21 documented as of this encounter
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
--- OUTSIDE RECORDS SUMMARY | 2022-08-14 17:47 | XMS_ITS | Encounter Summary ---
:1965 Author Organization [facility] Address [address] [place] [address] Care Team Providers Name Role Phone Elsewhere, Pcp Primary Care Provider Unavailable Reason for Referral MRI/CAT/PET Scan (Routine) - Closed Specialty Diagnoses / Procedures Referred By Contact Refer red To Contact Radiology Diagnoses Painful Total Joint Arthroplasty Initial ([facility]) Alfredo Herrera [place] Procedures CT Shoulder Left without IV Contrast O.P.A.-C. [address] [place] [address] [phone] Referral ID Status Reason Start Date Expiration Date Visits Requ ested Visits Authorized [id number] Closed 04/02/2022 04/02/2023 1 1 Reason for Visit MRI/CAT/PET Scan (Routine) - Closed Specialty Diagnoses / Procedures Referred By Contact Refer red To Contact Radiology Diagnoses Painful Total Joint Arthroplasty Initial ([facility]) Alfredo Herrera [place] Procedures CT Shoulder Left without IV Contrast O.P.A.-C. [address] [place] [phone] Referral ID Status Reason Start Date Expiration Date Visits Requ ested Visits Authorized [id number] Closed 04/02/2022 04/02/2023 1 1 Encounter Details Date Type Department Care Team Description 04/14/2022 Hospital Encounter Department of Alfredo Herrera Painful Total Joint Radiology, [place] Arthroplasty Initial Building, in [address] [place] [address] ([facility]) [facility] [phone] 200 [facility] [phone] [place], [place] (Work) [phone] Social History Tobacco Use Types Packs/Day Years [...] you attend pentecostalism or Patient refused 2021 druze services? Do [...] THC multivit-min/iron/folic/ Take 1 tablet by 0 ttu361 (HAIR, SKIN AND mouth daily. NAILS ADVANCED [...] 09/06/2022 Appointment Radiology Alfredo Herrera O.P.A.-C. [address] [place] [phone] 09/06/2022 Office Visit Orthopedic Surgery Cyrus Polk M.D. [address] [place] [phone] documented as of this encounter Procedures Procedure [...] documented as of this encounter Care Teams Pulverizer Tender Relationship Specialty Start Date End Date Elsewhere, Pcp PCP - General Family Medicine 12/25/21 documented as of this encounter
--- OUTSIDE RECORDS SUMMARY | 2022-08-14 17:47 | XMS_ITS | Encounter Summary ---
:1965 Author Organization [facility] Address [address] [place] [address] Care Team Providers Name Role Phone Elsewhere, Pcp Primary Care Provider Unavailable Reason for Referral Outpatient (Routine) - Closed Specialty Diagnoses / Procedures Referred By Contact Refer red To Contact Anesthesiology Diagnoses Anemia [facility] C.N.Hema, M.S.N. [address] [place] [phone] Referral ID Status Reason Start Date Expiration Date Visits Requ ested Visits Authorized [id number] Closed 04/22/2022 04/22/2023 1 1 Encounter Details Date Type Department Care Team Description 04/22/2022 Orders Only Preoperative Evaluation Shuana Rubin (Primary Dx) Center in [facility], NIKKY [place], [place] M.S.N. [address] [place] [address] [place] [phone] [place], [place] [phone] Social History Tobacco Use Types Packs/Day Years [...] 09/06/2022 Appointment Radiology Alfredo Herrera O.P.A.-C. [address] [place] [phone] 09/06/2022 Office Visit Orthopedic Surgery Cyrus Polk M.D. [address] [place] [phone] Scheduled Referrals Name Type Priority Associated Order [...] Venous) AM CDT 10:53 AM CDT Narrative [facility] - 05/03/2022 11:47 AM CDT Specimen Information: Specimen ID: [id number] Specimen Type: Blood Specimen Collection Start Date: 10:11 AM Specimen Received Date: 05/03/2022 10:53 AM Specimen ID: [id number] Specimen Type: Blood Specimen Collection Start Date: 10:11 AM Specimen Received Date: 05/03/2022 10:53 AM Specimen ID: [id number] Specimen Type: Blood Specimen Collection Start Date: 10:11 AM Specimen Received Date: 05/03/2022 10:53 AM Specimen ID: [id number] Specimen Type: Blood Specimen Collection Start Date: 10:11 AM Specimen Received Date: 05/03/2022 10:32 AM Specimen ID: [id number] Specimen Type: Blood Specimen Collection Start Date: 10:11 AM Specimen Received Date: 05/03/2022 11:44 AM Araceli Doyle APRNNBetty., M.S.N. LAB BLOOD ADD-ON Performing Organization Address City/State/ZIP Code Phon e Number [facility] - [address] [place], [place] [address] [facility] [place] [address] [facility] [address] documented in this encounter Visit Diagnoses Diagnosis Anemia - Primary Anemia documented in this encounter Additional Health Concerns Assessment Noted Time PHQ-9 Depression Total Score: 16 02/11/2021 12:00 AM C DT documented as of this encounter Care Teams Wharf Tender Relationship Specialty Start Date End Date Elsewhere, Pcp PCP - General Family Medicine 12/25/21 documented as of this encounter
--- OUTSIDE RECORDS SUMMARY | 2022-08-14 17:47 | XMS_ITS | Encounter Summary ---
:1965 Author Organization [facility] Address [address] [place] [address] Care Team Providers Name Role Phone Elsewhere, Pcp Primary Care Provider Unavailable Reason for Visit Outpatient (Routine) - Closed Specialty Diagnoses / Procedures Referred By Contact Refer red To Contact Anesthesiology Diagnoses Anemia Shauna Rubin APRN, [facility] C.N.P., M.S.N. [address] [place] [phone] Referral ID Status Reason Start Date Expiration Date Visits Requ ested Visits Authorized [id number] Closed 04/22/2022 04/22/2023 1 1 Encounter Details Date Type Department Care Team Description 05/03/2022 Comprehensive Visit Preoperative Evaluation Shauna Gomez, NIKKY, C.N.P., M.S.N. [address] [place] [phone] [facility] in [place], Peter Tse R.N. [address] [place] [phone] [place] [address] [place] [phone] Social History Tobacco Use Types Packs/Day [...] you attend judaism or Patient refused 2021 mosque services? Do [...] iron in the past when living in [place] (approximately 5-6 years ago). Therapy Plan: With the planned ARTHROPLASTY REPLACEMENT TOTAL SHOULDER on 05/18/2022 the patient would meet criteria based on the Preoperative Anemia Treatment Algorithm and RN Anemia Protocol to receive 1 x 1,000 mgdose of IV iron dextran. Patient agrees with this and would like this administered @ [facility]. I provided the patient with the education pamphlet TF7932-31 Treating Anemia Before Surgery andanswered her questions about anemia and IV iron dextran. I spent 30 minutes with the patient. documented in this encounter Plan of Treatment Upcoming Encounters Date Type Specialty Care Team Description 09/01/2022 Clinical Communication Admitting/Central Scheduling 09/06/2022 Appointment Radiology Alfredo Herrera O.P.A.-C. [address] [place] [address] 09/06/2022 Office Visit Orthopedic Surgery Cyrus Polk M.D. [address] [place] [phone] documented as of this encounter Visit Diagnoses Diagnosis Anemia documented in this encounter Additional Health Concerns Assessment Noted Time PHQ-9 Depression Total Score: 16 02/11/2021 12:00 AM C DT documented as of this encounter Care Teams White Goods Appliance Tech Relationship Specialty Start Date End Date Elsewhere, Pcp PCP - General Family Medicine 12/25/21 documented as of this encounter
--- OUTSIDE RECORDS SUMMARY | 2022-08-14 17:48 | XMS_ITS | Encounter Summary ---
:1965 Author Organization [facility] Address [address] [place] [address] Care Team Providers Name Role Phone Elsewhere, Pcp Primary Care Provider Unavailable Encounter Details Date Type Department Care Team Description 03/02/2022 Orders Only Pharmacy Prior Auth Sarmad Solano [phone] Social History Tobacco Use Types Packs/Day Years [...] you attend jainism or Patient refused 2021 mandaen services? Do [...] Appointment Radiology Alfredo Herrera O.P.A.-C. [address] [place] [address] 09/06/2022 Office Visit Orthopedic Surgery Cyrus Polk M.D. [address] [place] [address] documented as of this encounter Visit Diagnoses Not on filedocumented in this encounter Additional Health Concerns Assessment Noted Time PHQ-9 Depression Total Score: 16 02/11/2021 12:00 AM C DT documented as of this encounter Care Teams Cattle Broker Relationship Specialty Start Date End Date Elsewhere, Pcp PCP - General Family Medicine 12/25/21 documented as of this encounter
--- OUTSIDE RECORDS SUMMARY | 2022-08-14 17:48 | XMS_ITS | Encounter Summary ---
:1965 Author Organization [facility] Address [address] [place] [address] Care Team Providers Name Role Phone Elsewhere, Pcp Primary Care Provider Unavailable Encounter Details Date Type Department Care Team Description 03/16/2022 Clinical Communication Department of Cyrus Polk Orthopedic Surgery in Lilian Souza [place], [place] [address] [place] [address] 200 [place] [phone] Social History Tobacco Use Types Packs/Day Years [...] you attend adventist or Patient refused 2021 quaker services? Do [...] - 03/16/2022 12:15 PM CDT Michael, patient's showcase maker from [facility], is calling hoping to speak to someone on Dr. Polk's surgical team to ensure that the patient is receiving the correct post-op care. Patient is set up for post op appointments at the beginning of March here. However, Michael is looking to speak to someone over the phone to ensure the patient is on the right track. Please call [phone]. Thank you. documented in this encounter Plan of Treatment Upcoming Encounters Date Type Specialty Care Team Description 09/01/2022 Clinical Communication Admitting/Central Scheduling 09/06/2022 Appointment Radiology Alfredo Herrera O.P.A.-C. 200 [place] [phone] 09/06/2022 Office Visit Orthopedic Surgery Cyrus Polk M.D. [address] [place] [phone] documented as of this encounter Visit Diagnoses Not on filedocumented in this encounter Additional Health Concerns Assessment Noted Time PHQ-9 Depression Total Score: 16 02/11/2021 12:00 AM C DT documented as of this encounter Care Teams Surgical Nurse Relationship Specialty Start Date End Date Elsewhere, Pcp PCP - General Family Medicine 12/25/21 documented as of this encounter
--- OUTSIDE RECORDS SUMMARY | 2022-08-14 17:48 | XMS_ITS | Encounter Summary ---
:1965 Author Organization [facility] Address [address] [place] [address] Care Team Providers Name Role Phone Elsewhere, Pcp Primary Care Provider Unavailable Encounter Details Date Type Department Care Team Description 03/02/2022 Orders Only Pharmacy Prior Auth Ana Rosa Ying [phone] Social History Tobacco Use Types Packs/Day Years [...] you attend tenriism or Patient refused 2021 islam services? Do [...] Appointment Radiology Alfredo Herrera O.P.A.-C. [address] [place] [phone] 09/06/2022 Office Visit Orthopedic Surgery Cyrus Polk M.D. [address] [place] [address] documented as of this encounter Visit Diagnoses Not on filedocumented in this encounter Additional Health Concerns Assessment Noted Time PHQ-9 Depression Total Score: 16 02/11/2021 12:00 AM C DT documented as of this encounter Care Teams Inspector Packer Glass Container Relationship Specialty Start Date End Date Elsewhere, Pcp PCP - General Family Medicine 12/25/21 documented as of this encounter
--- OUTSIDE RECORDS SUMMARY | 2022-08-14 17:48 | XMS_ITS | Encounter Summary ---
:1965 Author Organization [facility] Address [address] [place] [address] Care Team Providers Name Role Phone Elsewhere, Pcp Primary Care Provider Unavailable Encounter Details Date Type Department Care Team Description 03/03/2022 Orders Only Pharmacy Prior Auth Usha Maurer [phone] Social History Tobacco Use Types Packs/Day Years [...] you attend buddhist or Patient refused 2021 caodaism services? Do [...] Appointment Radiology Alfredo Herrera O.P.A.-C. [address] [place] [address] 09/06/2022 Office Visit Orthopedic Surgery Cyrus Polk M.D. [address] [place] [address] documented as of this encounter Visit Diagnoses Not on filedocumented in this encounter Additional Health Concerns Assessment Noted Time PHQ-9 Depression Total Score: 16 02/11/2021 12:00 AM C DT documented as of this encounter Care Teams Vehicle Upholsterer Relationship Specialty Start Date End Date Elsewhere, Pcp PCP - General Family Medicine 12/25/21 documented as of this encounter
--- OUTSIDE RECORDS SUMMARY | 2022-08-14 17:48 | XMS_ITS | Encounter Summary ---
:1965 Author Organization [facility] Address [address] [place] [address] Care Team Providers Name Role Phone Elsewhere, Pcp Primary Care Provider Unavailable Encounter Details Date Type Department Care Team Description 03/08/2022 Orders Only Department of Orthopedic Melissa Mcdonald M.D. Surgery in [place], [place] [address] [place] [phone] Social History Tobacco Use [...] you attend advent or Patient refused 2021 church services? Do [...] Appointment Radiology Alfredo Herrera O.PBrittonAOmar [address] [place] [address] 09/06/2022 Office Visit Orthopedic Surgery Cyrus Polk M.D. [address] [place] [address] documented as of this encounter Visit Diagnoses Not on filedocumented in this encounter Additional Health Concerns Assessment Noted Time PHQ-9 Depression Total Score: 16 02/11/2021 12:00 AM C DT documented as of this encounter Care Teams Weight Clerk Relationship Specialty Start Date End Date Elsewhere, Pcp PCP - General Family Medicine 12/25/21 documented as of this encounter
--- OUTSIDE RECORDS SUMMARY | 2022-08-14 17:48 | XMS_ITS | Encounter Summary ---
:1965 Author Organization [facility] Address [address] [place] [address] Care Team Providers Name Role Phone Elsewhere, Pcp Primary Care Provider Unavailable Encounter Details Date Type Department Care Team Description 03/05/2022 Clinical Communication Pharmacy Prior Auth Ben Chino RO M.D. [phone] Social History Tobacco Use Types Packs/Day Years [...] you attend baptism or Patient refused 2021 latter day services? [...] Appointment Radiology Alfredo Herrera O.P.A.-C. [address] [place] [address] 09/06/2022 Office Visit Orthopedic Surgery Cyrus Polk M.D. [address] [place] [address] documented as of this encounter Visit Diagnoses Not on filedocumented in this encounter Additional Health Concerns Assessment Noted Time PHQ-9 Depression Total Score: 16 02/11/2021 12:00 AM C DT documented as of this encounter Care Teams Clay Mine Cutting Machine Operator Relationship Specialty Start Date End Date Elsewhere, Pcp PCP - General Family Medicine 12/25/21 documented as of this encounter
--- OUTSIDE RECORDS SUMMARY | 2022-08-14 17:48 | XMS_ITS | Encounter Summary ---
:1965 Author Organization [facility] Address [address] [place] [address] Care Team Providers Name Role Phone Elsewhere, Pcp Primary Care Provider Unavailable Encounter Details Date Type Department Care Team Description 03/12/2022 Orders Only Department of Melissa Mcdonald Arthroplas ty Total Orthopedic Surgery in M.D. Should er Replacement [place], [place] Status Post Left [address] [facility] (Primary Dx) [place] [address] Social History Tobacco Use Types [...] Admitting/Central Scheduling 09/06/2022 Appointment Radiology Alfredo Herrera O.PBrittonABritton-CBritton [address] [place] [address] 09/06/2022 Office Visit Orthopedic Surgery Cyrus Polk M.D. [address] [place] [address] documented as of this encounter Visit Diagnoses Diagnosis Arthroplasty Total Shoulder Replacement Status Post Left - Primary documented in this encounter Additional Health Concerns Assessment Noted Time PHQ-9 Depression Total Score: 16 02/11/2021 12:00 AM C DT documented as of this encounter Care Teams Finance Insurance Manager Relationship Specialty Start Date End Date Elsewhere, Pcp PCP - General Family Medicine 12/25/21 documented as of this encounter
--- OUTSIDE RECORDS SUMMARY | 2022-08-14 17:48 | XMS_ITS | Encounter Summary ---
:1965 Author Organization [facility] Address [address] [place] [address] Care Team Providers Name Role Phone Elsewhere, Pcp Primary Care Provider Unavailable Reason for Referral Outpatient (Routine) - Closed Specialty Diagnoses / Procedures Referred By Contact Refer red To Contact Diagnoses Painful Total Joint Arthroplasty Initial ([facility]) Alfredo Herrera [place] Procedures ORS US-Guided aspiration/injection O.P.A.-C. 200 [place] [address] Referral ID Status Reason Start Date Expiration Date Visits Requ ested Visits Authorized [id number] Closed 04/02/2022 04/02/2023 1 1 MRI/CAT/PET Scan (Routine) - Closed Specialty Diagnoses / Procedures Referred By Contact Refer red To Contact Radiology Diagnoses Painful Total Joint Arthroplasty Initial ([facility]) Alfredo Herrera [place] Procedures CT Shoulder Left without IV Contrast O.P.A.-C. 200 [place] [address] Referral ID Status Reason Start Date Expiration Date Visits Requ ested Visits Authorized [id number] Closed 04/02/2022 04/02/2023 1 1 Reason for Visit Outpatient (Routine) - Closed Specialty Diagnoses / Procedures Referred By Contact Refer red To Contact Orthopedic Surgery Diagnoses Arthroplasty Total Shoulder Replacement Status Post Left Alfredo Herrera [place] O.P.ABritton-C. [address] [place] [address] Referral ID Status Reason Start Date Expiration Date Visits Requ ested Visits Authorized [id number] Closed 02/25/2022 02/25/2023 1 1 Encounter Details Date Type Department Care Team Description 04/02/2022 Office Visit Department of Cyrus Polk Arthroplasty Total Shoulder Replacement Status Post Left; Orthopedic Surgery in [place] Painful Total Joint Arthroplasty Initial (HCC) [place], [place] [address] [facility] [address] [place] [phone] Social History Tobacco Use Types Packs/Day Years [...] attend oriental orthodox or Patient refused 2021 christian services? [...] Cyrus Polk M.D. CT CT Job ID: [id number] documented in this encounter Plan of Treatment Upcoming Encounters Date Type Specialty Care Team Description 09/01/2022 Clinical Communication Admitting/Central Scheduling 09/06/2022 Appointment Radiology Alfredo Herrera O.P.A.-C. [address] [place] [phone] 09/06/2022 Office Visit Orthopedic Surgery Cyrus Polk M.D. [address] [place] [phone] documented as of this encounter Results CT Shoulder [...] [facility] [address] [place], [place] [address] [facility] [place] [address] [facility] [address] (ABNORMAL) CBC without Differential (04/14/2022 10:42 AM [...] [facility] - 200 [place], [place] [address] [facility] [place] [address] [facility] [address] [place] ARTHCS ASP/INJ MJR JT W US (04/14/2022 9:30 AM CDT) Specimen (Source) Anatomical Location Collection Method / Collectio n Time Received Time / Laterality Volume Narrative MMODAL - 04/14/2022 9:30 AM CDT Jey Monzon M.D. ? 04/14/2022 10:34 AM Shoulder site - L glenohumeral : aspirat ion only Date/Time: 04/14/2022 9:30 AM Performed by: Jey Monzon M.D. Authorized by: Alfredo Herrera O.P.A.-C [place] Care team members present 1. Jey Monzon M.D. 2. Carmelo Guo M.D., M.S. 3. Priya Blue L.A.T., A.T.C. 4. Pete Kaye, L.A.T., A.T.C. [...] documented as of this encounter Care Teams Vessel Welder Relationship Specialty Start Date End Date Elsewhere, Pcp PCP - General Family Medicine 12/25/21 documented as of this encounter
--- OUTSIDE RECORDS SUMMARY | 2022-08-14 17:48 | XMS_ITS | Encounter Summary ---
:1965 Author Organization [facility] Address [address] [place] [address] Care Team Providers Name Role Phone Elsewhere, Pcp Primary Care Provider Unavailable Reason for Visit Reason Comments Med Refill Encounter Details Date Type Department Care Team Description 03/02/2022 Refill Division of [facility] Ridge Vega M.D. Med Refill Internal Medicine, [place] [address] [address] [facility] [place] [address] [place] [address] [place] [address] [place] [address] Social History Tobacco Use [...] you attend scientologist or Patient refused 2021 muslim services? Do [...] Appointment Radiology Alfredo Herrera O.PBrittonABritton-CBritton [address] [place] [address] 09/06/2022 Office Visit Orthopedic Surgery Cyrus Polk M.D. [address] [place] [address] documented as of this encounter Visit Diagnoses Not on filedocumented in this encounter Additional Health Concerns Assessment Noted Time PHQ-9 Depression Total Score: 16 02/11/2021 12:00 AM C DT documented as of this encounter Care Teams Space Planner Relationship Specialty Start Date End Date Elsewhere, Pcp PCP - General Family Medicine 12/25/21 documented as of this encounter
--- OUTSIDE RECORDS SUMMARY | 2022-08-14 17:48 | XMS_ITS | Encounter Summary ---
:1965 Author Organization [facility] Address [address] [place] [address] Care Team Providers Name Role Phone Elsewhere, Pcp Primary Care Provider Unavailable Encounter Details Date Type Department Care Team Description 03/05/2022 Orders Only Pharmacy Prior Auth RO Elsewhere, Pcp [phone] Social History Tobacco Use Types Packs/Day Years [...] you attend yazidi or Patient refused 2021 quaker services? Do [...] Appointment Radiology Alfredo Herrera O.P.A.-C. [address] [place] [address] 09/06/2022 Office Visit Orthopedic Surgery Cyrus Polk M.D. [address] [place] [address] documented as of this encounter Visit Diagnoses Not on filedocumented in this encounter Additional Health Concerns Assessment Noted Time PHQ-9 Depression Total Score: 16 02/11/2021 12:00 AM C DT documented as of this encounter Care Teams Revenue Field Agent Relationship Specialty Start Date End Date Elsewhere, Pcp PCP - General Family Medicine 12/25/21 documented as of this encounter
--- OUTSIDE RECORDS SUMMARY | 2022-08-14 17:48 | XMS_ITS | Encounter Summary ---
:1965 Author Organization [facility] Address [address] [place] [address] Care Team Providers Name Role Phone Elsewhere, Pcp Primary Care Provider Unavailable Encounter Details Date Type Department Care Team Description 03/08/2022 Documentation Department of Orthopedic Melissa Mcdonald M.D. Surgery in [place], [place] [address] [place] [address] Social History Tobacco Use [...] you attend alevism or Patient refused 2021 mosque services? Do [...] Appointment Radiology Alfredo Herrera O.P.A.-C. [address] [place] [phone] 09/06/2022 Office Visit Orthopedic Surgery Cyrus Polk M.D. [address] [place] [address] documented as of this encounter Visit Diagnoses Not on filedocumented in this encounter Additional Health Concerns Assessment Noted Time PHQ-9 Depression Total Score: 16 02/11/2021 12:00 AM C DT documented as of this encounter Care Teams Gold Frame Assembler Relationship Specialty Start Date End Date Elsewhere, Pcp PCP - General Family Medicine 12/25/21 documented as of this encounter
--- OUTSIDE RECORDS SUMMARY | 2022-08-14 17:48 | XMS_ITS | Encounter Summary ---
:1965 Author Organization [facility] Address [address] [place] [address] Care Team Providers Name Role Phone Elsewhere, Pcp Primary Care Provider Unavailable Encounter Details Date Type Department Care Team Description 03/11/2022 Documentation Department of Orthopedic Melissa Mcdonald M.D. Surgery in [place], [place] [address] [place] [address] Social History Tobacco Use [...] you attend holiness or Patient refused 2021 synagogue services? Do [...] the highest level of school Associate degree: occupa tioswaldo, 03/24/2021 you have completed or the highest [...] Mr. Mosquera if he could come to [place] to worm picker a new sling tomorrow and he [...] 09/06/2022 Appointment Radiology Alfredo Herrera O.P.A.-C. [address] [place] [phone] 09/06/2022 Office Visit Orthopedic Surgery Cyrus Polk M.D. [address] [place] [address] documented as of this encounter Visit Diagnoses Not on filedocumented in this encounter Additional Health Concerns Assessment Noted Time PHQ-9 Depression Total Score: 16 02/11/2021 12:00 AM C DT documented as of this encounter Care Teams Slipman Relationship Specialty Start Date End Date Elsewhere, Pcp PCP - General Family Medicine 12/25/21 documented as of this encounter
--- OUTSIDE RECORDS SUMMARY | 2022-08-14 17:48 | XMS_ITS | Encounter Summary ---
:1965 Author Organization [facility] Address [address] [place] [address] Care Team Providers Name Role Phone Elsewhere, Pcp Primary Care Provider Unavailable Encounter Details Date Type Department Care Team Description 03/02/2022 Orders Only Pharmacy Prior Auth Brooklyn Frias [phone] Social History Tobacco Use Types Packs/Day Years [...] Appointment Radiology Alfredo Herrera O.P.A.-C. [address] [place] [address] 09/06/2022 Office Visit Orthopedic Surgery Cyrus Polk M.D. [address] [place] [phone] documented as of this encounter Visit Diagnoses Not on filedocumented in this encounter Additional Health Concerns Assessment Noted Time PHQ-9 Depression Total Score: 16 02/11/2021 12:00 AM C DT documented as of this encounter Care Teams Medical Billing Coder Relationship Specialty Start Date End Date Elsewhere, Pcp PCP - General Family Medicine 12/25/21 documented as of this encounter
--- OUTSIDE RECORDS SUMMARY | 2022-08-14 17:48 | XMS_ITS | Encounter Summary ---
:1965 Author Organization [facility] Address [address] [place] [address] Care Team Providers Name Role Phone Elsewhere, Pcp Primary Care Provider Unavailable Encounter Details Date Type Department Care Team Description 02/26/2022 Clinical Communication [facility] [place] Main Phar Janet Sarmiento, [address] [facility].T[facility] [place], [place] [phone] [address] (Work) [phone] Social History Tobacco Use Types Packs/Day Years [...] you attend worship or Patient refused 2021 jew services? Do [...] Admitting/Central Scheduling 09/06/2022 Appointment Radiology Alfredo Herrera O.P.ABritton-CBritton [address] [place] [address] 09/06/2022 Office Visit Orthopedic Surgery Cyrus Polk M.D. [address] [place] [address] documented as of this encounter Visit Diagnoses Not on filedocumented in this encounter Additional Health Concerns Assessment Noted Time PHQ-9 Depression Total Score: 16 02/11/2021 12:00 AM C DT documented as of this encounter Care Teams Mechanical Detailer Relationship Specialty Start Date End Date Elsewhere, Pcp PCP - General Family Medicine 12/25/21 documented as of this encounter
--- OUTSIDE RECORDS SUMMARY | 2022-08-14 17:48 | XMS_ITS | Encounter Summary ---
:1965 Author Organization [facility] Address [address] [place] [address] Care Team Providers Name Role Phone Elsewhere, Pcp Primary Care Provider Unavailable Encounter Details Date Type Department Care Team Description 03/19/2022 Clinical Communication Department of Cyrus Polk Orthopedic Surgery in [place], [place] [address] [place] [address] 200 [place] [address] [phone] Social History Tobacco Use Types Packs/Day Years [...] you attend nondenominational or Patient refused 2021 latter-day services? Do [...] discussed this situation with the O.R. supervisor covering and lining, the A.M. admission Textile Chemist, and the Outpatient Textile Chemist and no one can locate this remote [...] Please return a call to her at [phone] documented in this encounter Plan of Treatment Upcoming Encounters Date Type Specialty Care Team Description 09/01/2022 Clinical Communication Admitting/Central Scheduling 09/06/2022 Appointment Radiology Alfredo Herrera O.P.A.-C. [address] [place] [address] 09/06/2022 Office Visit Orthopedic Surgery Cyrus Polk M.D. [address] [place] [address] documented as of this encounter Visit Diagnoses Not on filedocumented in this encounter Additional Health Concerns Assessment Noted Time PHQ-9 Depression Total Score: 16 02/11/2021 12:00 AM C DT documented as of this encounter Care Teams Machine Setter And Repairer Relationship Specialty Start Date End Date Elsewhere, Pcp PCP - General Family Medicine 12/25/21 documented as of this encounter
--- OUTSIDE RECORDS SUMMARY | 2022-08-14 17:48 | XMS_ITS | Encounter Summary ---
:1965 Author Organization [facility] Address [address] [place] [address] Care Team Providers Name Role Phone Elsewhere, Pcp Primary Care Provider Unavailable Reason for Visit Reason Comments Medication Problem Encounter Details Date Type Department Care Team Description 03/01/2022 Clinical Communication Department of Jose Polk Orthopedic Surgery Cyrus Souza M.D. in [place], [facility] [place], [place] [address] [place] [address] [place], [place] [phone] (Work) [phone] Social History Tobacco Use Types Packs/Day Years [...] you attend religious or Patient refused 2021 orthodox services? Do [...] 12:04 PM CDT PIPER. Received fax from [employer] 03-03-22 indicating the doxycycline [address] 100 mg tab is approved through 11/27/2022. Telephone Encounter - Cyrus Polk M.D. - 03/02/2022 7:45 AM CDT Please see below Thank you Telephone Encounter - Radha Suh - 03/01/2022 3:36 PM CDT Regina, pharmacist working for the insurance company calls regarding the doxycycline hyclate (DORYX) 100 mg EC tablet [[id number]] Script. This is not in their formulary. She has several questions to ask to consider approving this. Please call Regina back [phone], ext [phone] Reference # [id number] documented in this encounter Plan of Treatment Upcoming Encounters Date Type Specialty Care Team Description 09/01/2022 Clinical Communication Admitting/Central Scheduling 09/06/2022 Appointment Radiology Alfredo Herrera O.P.A.-C. [address] [place] [phone] 09/06/2022 Office Visit Orthopedic Surgery Cyrus Polk M.D. [address] [place] [phone] documented as of this encounter Visit Diagnoses [...]
--- OUTSIDE RECORDS SUMMARY | 2022-08-14 17:48 | XMS_ITS | Encounter Summary ---
:1965 Author Organization [facility] Address [address] [place] [address] Care Team Providers Name Role Phone Elsewhere, Pcp Primary Care Provider Unavailable Reason for Visit Reason Comments Medication Question Encounter Details Date Type Department Care Team Description 03/08/2022 Clinical Communication Department of Jose Polk Orthopedic Surgery Cyrus Souza M.D. in [place], [facility] [place], [place] [address] [place] [address] [place], [place] [phone] (Work) [phone] Social History Tobacco Use Types Packs/Day Years [...] you attend temple or Patient refused 2021 cheondoism services? Do [...] 03/08/2022 11:22 AM CDT Kylie, pharmacist at [facility] in [place] calls. She is wondering if you indeed want to fill it. Please call her back at [phone] Regarding the oxycodone script sent today---patient had received 120 tablets of oxycodone on February 24 provided by another provider. documented in this encounter Plan of Treatment Upcoming Encounters Date Type Specialty Care Team Description 09/01/2022 Clinical Communication Admitting/Central Scheduling 09/06/2022 Appointment Radiology Alfredo Herrera O.P.A.-C. [address] [place] [phone] 09/06/2022 Office Visit Orthopedic Surgery Cyrus Polk M.D. [address] [place] [address] documented as of this encounter Visit Diagnoses Not on filedocumented in this encounter Additional Health Concerns Assessment Noted Time PHQ-9 Depression Total Score: 16 02/11/2021 12:00 AM C DT documented as of this encounter Care Teams School Librarian Relationship Specialty Start Date End Date Elsewhere, Pcp PCP - General Family Medicine 12/25/21 documented as of this encounter
--- OUTSIDE RECORDS SUMMARY | 2022-08-14 17:48 | XMS_ITS | Encounter Summary ---
:1965 Author Organization [facility] Address [address] [place] [address] Care Team Providers Name Role Phone Elsewhere, Pcp Primary Care Provider Unavailable Encounter Details Date Type Department Care Team Description 03/08/2022 Orders Only Department of Orthopedic Melissa Mcdonald M.D. Surgery in [place], [place] [address] [place] [address] Social History Tobacco Use [...] you attend faith or Patient refused 2021 rastafari services? Do [...] Appointment Radiology Alfredo Herrera O.PBrittonAOmar [address] [place] [address] 09/06/2022 Office Visit Orthopedic Surgery Cyrus Polk M.D. [address] [place] [address] documented as of this encounter Visit Diagnoses Not on filedocumented in this encounter Additional Health Concerns Assessment Noted Time PHQ-9 Depression Total Score: 16 02/11/2021 12:00 AM C DT documented as of this encounter Care Teams Spare Fixer Relationship Specialty Start Date End Date Elsewhere, Pcp PCP - General Family Medicine 12/25/21 documented as of this encounter
--- OUTSIDE RECORDS SUMMARY | 2022-08-14 17:48 | XMS_ITS | Encounter Summary ---
:1965 Author Organization [facility] Address [address] [place] [address] Care Team Providers Name Role Phone Elsewhere, Pcp Primary Care Provider Unavailable Reason for Referral Medication Prior Authorization - Denied Specialty Diagnoses / Procedures Referred By Contact Refer red To Contact Michael Chino M.D. Referral ID Status Reason Start Date Expiration Date Visits Requ ested Visits Authorized [id number] Denied 1 1 Encounter Details Date Type Department Care Team Description 02/26/2022 - Hospital Encounter [facility] Jam, Shoulder Joint Disorder Left; 02/27/2022 Hospital, Anabaptism Cyrus Souza M.D. Pain Shoulder Left [facility] [address] [facility] [place], [place] Floor [address] [address] [facility] [phone] [place], [place] (Work) [phone] Social History Tobacco Use [...] you attend mormonism or Patient refused 2021 islam services? Do you belong to any clubs or No 05/17/2022 organizations such as mormonism groups, [employer], [place] or athletic groups, or school groups? How [...] THC multivit-min/iron/folic/ Take 1 tablet by 0 [id number] (HAIR, SKIN AND mouth daily. NAILS ADVANCED [...] - 02/27/2022 8:05 AM CDT Orthopedic Service: [facility] Admission Day: 02/26/2022 SUBJECTIVE POD1. [...] am until 6 pm, please page the [facility] pager at [phone] For urgent matters from 6 pm until 6 am, please page Ortho House at [phone] Michael Chino M.D. - 02/26/2022 3:03 PM [...] am until 6 pm, please page the enavu pager at [phone] For urgent matters from 6 pm until 6 am, please page Ortho House at [phone] Clemente Buck, Pharm.D., R.Ph. - 02/26/2022 9:17 [...] Take 150 mg by mouth every morning. xycjfzicom-dgsyppfwtyfue-qkzh (ESGIC) 50-325-40 mg per tablet Past Week [...] 1 spray as needed. 5 mg THC multivit-min/iron/folic/gys049 (HAIR, SKIN AND NAILS ADVANCED ORAL) 02/25/2022 [...] (HCC) ??? Nicotine Dependence Unspecified ??? Other Hide And Skin Classer Current Drug Therapy ??? Direct Infection Of [...] Lives With: Alone Receives Help From: flight attendant inflight services, Family, Friend(s) ADL Assistance: Required assistance ADL Assistance Comments: Gets help from PARANORMAL INVESTIGATOR for her bath/shower and for her meals IADL/Homemaking Assistance: Required assistance IADL/Homemaking Assistance Comments: Gets help for housecleaning Driving: Independent Driving Comments: takes her cane and medical alert with her. Occupational Role: On disability Occupational Role Comments: Previously worked at a [employer] and [employer] Prior Mobility/Functional Transfers Level of Rap[place]: Modified independent Previous Transfer/Mobility Assistance Comments: Patient [...] Prescriptions were sent and filled at the [facility] pharmacy. Catalina Mccloud R.N. - [...] elsewhere status post placement antibiotic spacer. A head start assistant teacher was necessary for one or more the [...] be placed with approximately 70% contact with wales bone. The more superior aspect of the [...] of antibiotic spacer, implantation of reverse arthroplasty, [id number] Cyrus Polk M.D. CT CT Job ID: [id number] documented in this encounter Plan of Treatment Upcoming Encounters Date Type Specialty Care Team Description 09/01/2022 Clinical Communication Admitting/Central Scheduling 09/06/2022 Appointment Radiology Alfredo Herrera O.P.A.-C. [address] [place] [address] 09/06/2022 Office Visit Orthopedic Surgery Cyrus Polk M.D. [address] [place] [address] documented as of this encounter Procedures Procedure [...] Laterality Blood (Blood, 02/26/2022 3:47 PM 02/27/20 22 4:29 Venous) CDT PM CDT Michael Chino M.D. LAB BLOOD ADD-ON Performing Organization Address City/State/ZIP Code Phon e Number [facility] - [address] [place], [place] [address] [facility] [place] [address] Laboratories-[facility] [address] (ABNORMAL) Basic Metabolic [...] 02/26/2022 DTL Black/ mL/min/BSA 6:27 PM CDT Turkmen Comment: ----ADDITIONAL INFORMATION---- Estimated GFR [...] Organization Address City/State/ZIP Code Phon e Number [facility] - [address] [place], [place] [address] [facility] [place] [address] [facility] [address] (ABNORMAL) CBC with Differential, Blood (02/26/2022 3:47 PM CDT) [facility] Method Time Signature Hemoglobin 8.8 (L) [...] Laterality Blood (Blood, 02/26/2022 3:47 PM 02/27/20 22 4:14 Venous) CDT PM CDT Michael Chino M.D. LAB BLOOD ADD-ON Performing Organization Address City/State/ZIP Code Phon e Number [facility] - [address] [place] [address] [facility] [place] [address] [facility] [address] [facility] DX Shoulder Left 1 View (02/26/2022 2:47 [...] Aerobe / Anaerobe+Susc (02/26/2022 1:00 PM CDT) [facility] [employer] Method Time Signature Bacteria Cult, No growth 03/12/2022 DTL Aerobe/Anaerob after 14 2:02 PM CDT e+Susc days of incubation. Specimen Anatomical Collection Method Collection Time Receive d Time (Source) Location / / Volume Laterality Shoulder, Left 02/26/2022 1:00 PM 022 1:41 CDT PM CDT Comment: Specimen Source Site: Tissue 1 Narrative [facility] - 03/12/2022 2:02 PM CDT Bacterial Culture: Placed in Bactec aero bic and Bactec anaerobic bottles Cyrus Polk M.D. LAB MICROBIOLOGY - GENERAL O RDERABLES Performing Organization Address City/State/ZIP Code Phon e Number [facility] - [address] [place], [place] [address] [facility] [place] [address] [facility] [address] [facility] Bacteria Cult, Aerobe / Anaerobe+Susc (02/26/2022 1:00 PM CDT) [facility] Method Time Signature Bacteria Cult, No growth 03/12/2022 DTL Aerobe/Anaerob after 14 2:02 PM CDT e+Susc days of incubation. Specimen Anatomical Collection Method Collection Time Receive d Time (Source) Location / / Volume Laterality Shoulder, Left 02/26/2022 1:00 PM 022 1:38 CDT PM CDT Comment: Specimen Source Site: Tissue 3 Narrative [facility] - 03/12/2022 2:02 PM CDT Bacterial Culture: Placed in Bactec aero bic and Bactec anaerobic bottles Cyrus Polk M.D. LAB MICROBIOLOGY - GENERAL O MARY Performing Organization Address [facility] Phon e Number [facility] - [address] [place], [place] [address] [facility] [place] [address] Laboratories-[address] Bacteria Cult, Aerobe / Anaerobe+Susc (02/26/2022 1:00 PM CDT) [facility] gist Method Time [facility] Bacteria Cult, No growth 03/12/2022 DT Aerobe/Anaerob after 14 2:02 PM CDT e+Susc days of incubation. Specimen Anatomical Collection Method Collection Time Receive d Time (Source) Location / / Volume Laterality Shoulder, Left 02/26/2022 1:00 PM 022 1:36 CDT PM CDT Comment: Specimen Source Site: Tissue 2 Narrative [facility] - 03/12/2022 2:02 PM CDT Bacterial Culture: Placed in Bactec aero bic and Bactec anaerobic bottles Cyrus Polk M.D. LAB MICROBIOLOGY - GENERAL O MARY Performing Organization Address [facility] Phon e Number [facility] - [id number] [place] [address] Surgical Pathology, Frozen Lab (02/26/2022 1:00 PM CDT) Component Value Ref Test [facility] 03/01/2022 METH 3:43 PM CDT Participated in [...] permanent sections. ??Grossed by Nan Ledezma M.S., PA([facility]). Block Summary A Left shoulder [...] LAB SURG PATH ORDERABLES Performing Organization Address City/State/[facility] Code Phon e Number [facility] - [address] [place], [place] [address] [facility] [place] [address] [facility] [...] on 02/27/22 at 0411, For 1 dose lactated ringers [...] 7-10 of 10, Starting on Tue02/27/[address] tablet 40 mg [...] Mckeon R.N.)1104 (Given - Provider: Catalina Mccloud RBetsy) 1,000 mg, oral, Every 6 hours, First dose on Tue02/26/22 at 1700 acetaminophen tablet 1,000 mg (TYLENOL) (COMPLETED) 104 (Given - Provider: Donna Mercado RBetsy) 1,000 mg, oral, Once, On Tue02/26/22 at 1045, For 1 dose, Pre-Op atorvastatin tablet 80 mg (LIPITOR) 2040 (Given - Provider: Tanesha Butt) 80 mg, oral, Daily at bedtime, First dose on Tue02/26/22 at 2100 buPROPion XL 24 hr tablet 150 mg (WELLBUTRIN XL) 08 (Given - Provider: Catalina Mccloud RBetsy) 150 mg, oral, Every morning, First [...] Tanesha Butt) 0825 (Given - Provider: Catalina lerma, R.N.) 200 mg, oral, 2 times daily, First dose on Tue02/26/22 at 2100 midazolam (PF) injection 1 mg (VERSED) (COMPLETED) 1137 (Given - Provider: Donna Mercado RBrittonNBritton) 1 mg, intravenous, Once, On Tue02/26/22 at 1045, For 1 dose, Pre- Op ondansetron (PF) injection 4 mg (ZOFRAN) (COMPLETED) 1203 (Given - Provider: Donna Mercado R.NBritton) 4 mg, intravenous, Once, On Tue02/26/22 at [...] Tanesha Butt) 0825 (Given - Provider: Catalina Mccloud, R.N.) 600 mg, oral, 2 times daily, [...] IVPB (COM PLETED) 1251 (Given - Provider: Sharifa SnyderNBritton) 1,000 mg (rounded from 1,050 mg = [...] mg of calcium, oral, Every 2 hour OK N, indigestion, Starting on Tue02/26/22 at 1451, [...] (DILAUDID) (COMPLETED) 0433 (Given - Provider: Lauren Mckeon, R.N.) 0.2 mg, intravenous, Every 2 hour [...] (COMPLETED) 1203 (Given - Provider: Donna Mercado R.Milad) 10 mg, oral, Once as needed, moderate pa in or score 4-6 of 10, severe pain or score 7-10 of 10, Starting on Tue02/26/22 at 1154, For 1 dose, Pre-Op oxyCODONE IR tablet 10 mg (ROXICODONE) (CANCELED) 1829 (Given - Provider: Tanesha Butt) 0130 (Given - Provider: Denise Novak R.N., ONC)0433 (Given - Provider: Lauren Mckeon RBrittonNBritton)0743 (Given - Provider: Catalina Mccloud R.N.) 10 [...] documented as of this encounter Care Teams Corporate Travel Coordinator Relationship Specialty Start Date End Date Elsewhere, Pcp PCP - General Family Medicine 12/25/21 documented as of this encounter
--- OUTSIDE RECORDS SUMMARY | 2022-08-14 17:48 | XMS_ITS | Encounter Summary ---
:1965 Author Organization [facility] Address [address] [place] [address] Care Team Providers Name Role Phone Elsewhere, Pcp Primary Care Provider Unavailable Encounter Details Date Type Department Care Team Description 03/03/2022 Orders Only Pharmacy Prior Auth Ana Rosa Ying [phone] Social History Tobacco Use Types Packs/Day Years [...] you attend spiritism or Patient refused 2021 bahai services? Do [...] Appointment Radiology Alfredo Herrera O.P.A.-C. [address] [place] [address] 09/06/2022 Office Visit Orthopedic Surgery Cyrus Polk M.D. [address] [place] [address] documented as of this encounter Visit Diagnoses Not on filedocumented in this encounter Additional Health Concerns Assessment Noted Time PHQ-9 Depression Total Score: 16 02/11/2021 12:00 AM C DT documented as of this encounter Care Teams Etl Bi Developer Relationship Specialty Start Date End Date Elsewhere, Pcp PCP - General Family Medicine 12/25/21 documented as of this encounter
--- OUTSIDE RECORDS SUMMARY | 2022-08-14 17:48 | XMS_ITS | Encounter Summary ---
:1965 Author Organization [facility] Address [address] [place] [address] Care Team Providers Name Role Phone Elsewhere, Pcp Primary Care Provider Unavailable Reason for Referral Outpatient (Routine) - Closed Specialty Diagnoses / Procedures Referred By Contact Refer red To Contact Diagnoses Arthroplasty Total Shoulder Replacement Status Post Left Alfredo Herrera O.P.A.-C. [facility] Procedures DX Shoulder Left Ingrowth Series 5 Views [address] [place] [phone] Referral ID Status Reason Start Date Expiration Date Visits Requ ested Visits Authorized [id number] Closed 02/25/2022 02/25/2023 1 1 Reason for Visit Outpatient (Routine) - Closed Specialty Diagnoses / Procedures Referred By Contact Refer red To Contact Diagnoses Arthroplasty Total Shoulder Replacement Status Post Left Alfredo Herrera O.P.A.-C. [facility] Procedures DX Shoulder Left Ingrowth Series 5 Views [address] [place] [phone] Referral ID Status Reason Start Date Expiration Date Visits Requ ested Visits Authorized [id number] Closed 02/25/2022 02/25/2023 1 1 Encounter Details Date Type Department Care Team Description 04/02/2022 Hospital Encounter Department of Alfredo Herrera Total Radiology, Anh Gonzales Shoulder Replacement [facility], in [address] [place] [address] Status Post Left [facility] [address] [place], [place] (Work) [phone] [phone] Social History Tobacco Use Types Packs/Day Years [...] you attend pentecostal or Patient refused 2021 pentecostalism services? Do [...] THC multivit-min/iron/folic/ Take 1 tablet by 0 [id number] (HAIR, SKIN AND mouth daily. NAILS ADVANCED [...] Appointment Radiology Alfredo Herrera O.P.A.-C. [address] [place] [phone] 09/06/2022 Office Visit Orthopedic Surgery Cyrus Polk M.D. [address] [place] [address] documented as of this encounter Procedures Procedure [...] documented as of this encounter Care Teams International Freight Forwarder Relationship Specialty Start Date End Date Elsewhere, Pcp PCP - General Family Medicine 12/25/21 documented as of this encounter
--- OUTSIDE RECORDS SUMMARY | 2022-08-14 17:49 | XMS_ITS | Encounter Summary ---
:1965 Author Organization [facility] Address [address] [place] [address] Care Team Providers Name Role Phone Elsewhere, [...] you attend tenriism or Patient refused 2021 mandaen services? Do [...] Appointment Radiology Alfredo Herrera O.P.A.-C. [address] [place] [address] 09/06/2022 Office Visit Orthopedic Surgery Cyrus Polk M.D. [address] [place] [address] documented as of this encounter Procedures Procedure [...] documented as of this encounter Care Teams Boat And Plant Utility Supervisor Relationship Specialty Start Date End Date Elsewhere, Pcp PCP - General Family Medicine 12/25/21 documented as of this encounter
--- OUTSIDE RECORDS SUMMARY | 2022-08-14 17:49 | XMS_ITS | Encounter Summary ---
:1965 Author Organization [facility] Address [address] [place] [address] Care Team Providers Name Role Phone Elsewhere, Pcp Primary Care Provider Unavailable Reason for Referral Outpatient (Routine) - Authorized Specialty Diagnoses / Procedures Referred By Contact Refer red To Contact Diagnoses Head Of Integrated Media Antibiotic Treatment Tejal Medley MPAS, P.A.-C., M.S. [address] [place] [phone] Referral ID Status Reason Start Expiration Visits Visits Date Date Requested Authorized [id number] Authorized Patient 02/08/2022 02/08/2023 1 1 Preference Reason for Visit Reason Comments OPAT Care Coordination Encounter Details Date Type Department Care Team Description 02/08/2022 Clinical Communication Section of Desirae Dominog (Care Infectious Diseases M, R.N. Coordination) in [place], [address] [place] [address] [place] [address] [place], [place] [phone] [address] (Work) [phone] Social History Tobacco Use Types Packs/Day Years [...] you attend sikhism or Patient refused 2021 adventist services? Do you belong to any clubs or No 05/17/2022 organizations such as sikhism groups, unions, fraRecipharm or athletic groups, or school groups? How [...] 02/08/2022 12:06 PM CDT Maritza calls from [employer]. [employer] stop date of 02/11 for IV antibiotics. Maritza requests order be faxed to [facility] where patient has labs and PICC site care done. I called the [facility], .Pull PIC order can be faxed to [phone]. documented in this encounter Plan of Treatment Upcoming Encounters Date Type Specialty Care Team Description 09/01/2022 Clinical Communication Admitting/Central Scheduling 09/06/2022 Appointment Radiology Alfredo Herrera O.P.A.-C. [address] [place] [address] 09/06/2022 Office Visit Orthopedic Surgery Cyrus Polk M.D. [address] [place] [address] documented as of this encounter Visit Diagnoses Diagnosis Head Of Integrated Media Antibiotic Treatment - Primary documented in this encounter Additional Health Concerns Assessment Noted Time PHQ-9 Depression Total Score: 16 02/11/2021 12:00 AM C DT documented as of this encounter Care Teams Membership Secretary Relationship Specialty Start Date End Date Elsewhere, Pcp PCP - General Family Medicine 12/25/21 documented as of this encounter
--- OUTSIDE RECORDS SUMMARY | 2022-08-14 17:49 | XMS_ITS | Encounter Summary ---
:1965 Author Organization [facility] Address [address] [place] [address] Care Team Providers Name Role Phone Elsewhere, Pcp Primary Care Provider Unavailable Encounter Details Date Type Department Care Team Description 01/08/2022 Clinical Communication Pharmacy Prior Auth ОЛЬГА Carrera M.D. [phone] Social History Tobacco Use Types Packs/Day Years [...] you attend episcopalian or Patient refused 2021 moravian services? Do [...] Camelia CINTRON. Thank you, The OPP[employer] Team HOLOGIST ENGINEERING documented in this encounter Plan of Treatment Upcoming Encounters Date Type Specialty Care Team Description 09/01/2022 Clinical Communication Admitting/Central Scheduling 09/06/2022 Appointment Radiology Herrera, Anh Britton [address] [place] [address] 09/06/2022 Office Visit Orthopedic Surgery Cyrus Polk M.D. [address] [place] [address] documented as of this encounter Visit Diagnoses Not on filedocumented in this encounter Additional Health Concerns Assessment Noted Time PHQ-9 Depression Total Score: 16 02/11/2021 12:00 AM C DT documented as of this encounter Care Teams Corporate Administrative Assistant Relationship Specialty Start Date End Date Elsewhere, Pcp PCP - General Family Medicine 12/25/21 documented as of this encounter
--- OUTSIDE RECORDS SUMMARY | 2022-08-14 17:49 | XMS_ITS | Encounter Summary ---
:1965 Author Organization [facility] Address [address] [place] [address] Care Team Providers Name Role Phone Elsewhere, Pcp Primary Care Provider Unavailable Reason for Referral Outpatient (Routine) - Closed Specialty Diagnoses / Procedures Referred By Contact Refer red To Contact Diagnoses Arthroplasty Total Shoulder Replacement Status Post Left Alfredo Herrera O.P.A.-C. [facility] Procedures DX Shoulder Left Ingrowth Series 5 Views [address] [place] [phone] Referral ID Status Reason Start Date Expiration Date Visits Requ ested Visits Authorized [id number] Closed 02/25/2022 02/25/2023 1 1 Outpatient (Routine) - Closed Specialty Diagnoses / Procedures Referred By Contact Refer red To Contact Orthopedic Surgery Diagnoses Arthroplasty Total Shoulder Replacement Status Post Left Alfredo Herrera, [facility] Anh [address] [place] [phone] Referral ID Status Reason Start Date Expiration Date Visits Requ ested Visits Authorized [id number] Closed 02/25/2022 02/25/2023 1 1 Scheduling Instructions 6 wk f/u L TSA Reason for Visit Reason Comments Pre-visit Testing Orders Encounter Details Date Type Department Care Team Description 02/25/2022 Clinical Communication Department of Jam Pre- visit Testing Orthopedic Surgery Cyrus Souza M.D. Orders in [place], [address] [place], [place] [address] [facility] [address] [place], [place] [phone] (Work) [phone] Social History Tobacco Use Types Packs/Day Years [...] you attend lutheran or Patient refused 2021 worship services? Do [...] Appointment Radiology Alfredo Herrera O.P.A.-C. [address] [place] [address] 09/06/2022 Office Visit Orthopedic Surgery Cyrus oPlk M.D. [address] [place] [address] Scheduled Referrals Name Type Priority Associated Diagnoses Order S [facility] Orthopedic Surgery Outpatient Referral Routine Arthroplasty To beot Expected: Post Op (clinic) Shoulder Replacement 10/2022, [...] arthroplasty loosening. Alfredo Kamara [facility]ER GARDINER documented in this encounter Visit Diagnoses Diagnosis Arthroplasty Total Shoulder Replacement Status Post Left - Primary Arthroplasty Total Shoulder Replacement Status Post Left documented in this encounter Additional Health Concerns Assessment Noted Time PHQ-9 Depression Total Score: 16 02/11/2021 12:00 AM C DT documented as of this encounter Care Teams Director Community Health Nursing Relationship Specialty Start Date End Date Elsewhere, Pcp PCP - General Family Medicine 12/25/21 documented as of this encounter
--- OUTSIDE RECORDS SUMMARY | 2022-08-14 17:49 | XMS_ITS | Encounter Summary ---
:1965 Author Organization [facility] Address [address] [place] [address] Care Team Providers Name Role Phone Elsewhere, Pcp Primary Care Provider Unavailable Encounter Details Date Type Department Care Team Description 02/26/2022 Anesthesia Event RST SEBAS MORAN OR Kaushik Carpenter, [address] [facility] [place] [address] [address] [facility] [phone] [place] [phone] (Wo rk) Anesthesia Record Procedure Summary Procedure [...] h andoff to the receiving staff during [facility] we 1. Identified the patient [...] you attend sikh or Patient refused 2021 presybeterian services? Do [...] or the highest technical, or vocational p [facility] degree you have received? Sex Assigned at Date Recorded Female 03/01/2019 10:12 AM CDT documented as of this encounter OR Notes Anesthesia Postprocedure Evaluation - Kaushik Carpenter M.B., Ch.B. - 02/26/2022 3:19 PM CDT Patient: Angie Mosquera Procedure Summary Date: 02/26/22 Room / Location: [address] / [facility] in [place], [place] Anesthesia Start: 1212 Anesthesia Stop: 143 [...] ETT location: oral VL device: glide scope [place] scope blade size: 3 Adult tube size: [...] Pre-op diagnosis: Degenerative joint disease left. Location: [address] / [facility] in [place], [place] Providers: Cyrus Polk M.D. Pertinent components [...] with patient /legal guardian or through an surface grinder. Risks/Benefits/Alternatives of Blood transfusion discussed with patient [...] fellow participated in the procedure, and the oracle drm consultant was present for the entire procedure. documented in this encounter Plan of Treatment Upcoming Encounters Date Type Specialty Care Team Description 09/01/2022 Clinical Communication Admitting/Central Scheduling 09/06/2022 Appointment Radiology Alfredo Herrera O.P.A.-C. [address] [place] [address] 09/06/2022 Office Visit Orthopedic Surgery Cyrus Polk M.D. [address] [place] [address] documented as of this encounter Procedures Procedure Name Priority Date/Time Associated Comments Diagnosis LDA ANE ENDOTRACHEAL Routine 02/26/2022 12:21 Res ults for this AIRWAY PM CDT procedure are i n the results section. MC ANE NERVE BLOCK Routine 02/26/2022 11:53 Resul ts for this WITH ULTRASOUND AM CDT procedure ar e in the results section. AL US GUIDE PLC NDL Routine 02/26/2022 11:53 Resu lts for this AM CDT procedure are i n the results section. AL INJ ANES BRACHIAL Routine 02/26/2022 11:53 Res [...] Kaushik Carpenter M.B., Ch.B. 3. Juana Silva FLOORWORKER LASTING, METAL FABRICATION SUPERVISOR Patient location during procedure: OR / Procedure Area PROCEDURE DETAILS: Mask difficulty assessment: easy mask Final airway type: video laryngoscope Laryngeal Manipulation: no ?? Final best view of glottic structures - Cormack/Lehane Score: grade 1 ETT location: oral VL device: glide scope [place] scope blade size: 3 Adult tube size: [...] ATTESTATION STATEMENT Kaushik Carlos, Ch.B. ANESTHESIA ORDERABLES AL INJ ANES BRACHIAL PLEX, AL US GUIDE PLC NDL, MC ANE NERVE [...] fellow participated in the procedure, and the oracle drm consultant was present for the entire procedure. [...] documented as of this encounter Care Teams Pharmacy Sales Representative Relationship Specialty Start Date End Date Elsewhere, Pcp PCP - General Family Medicine 12/25/21 documented as of this encounter
--- OUTSIDE RECORDS SUMMARY | 2022-08-14 17:49 | XMS_ITS | Encounter Summary ---
:1965 Author Organization [facility] Address [address] [place] [address] Care Team Providers Name Role Phone Elsewhere, Pcp Primary Care Provider Unavailable Reason for Visit Outpatient (Routine) - Closed Specialty Diagnoses / Procedures Referred By Contact Refer red To Contact Infectious Diseases Diagnoses Aftercare Total Shoulder Arthro[facility] [address] [place] [phone] Referral ID Status Reason Start Date Expiration Date Visits Requ ested Visits Authorized [id number] Closed 01/01/2022 01/01/2023 1 1 Encounter Details Date Type Department Care Team Description 02/25/2022 Comprehensive Visit Section of Christiano Nixon M.D. [address] [place] [phone] Correction Antibiotic Treatment (Primary Dx); Infectious Diseases Russell Santos M.D. [address] [place] [phone] Infection Shoulder Prosthesis Subsequent ; in [place], Direct Infecti on Of Left Shoulder In Infectious And Parasitic Diseases Classified Elsewhere ([facility]); [place] Aftercare Total Shoulder Art hroplasty [address] [place] [phone] Social History Tobacco Use Types Packs/Day [...] you attend anabaptist or Patient refused 2021 hinduism services? Do [...] 56 y.o. Birthdate: 1965 Sex: female Address: [address] [place] [phone] Referring Provider: Jose Guadalupe Nixon M.D. REASON [...] on OSH AST. She presented to [facility] (unclear if on antibiotics) for further evaluation given persistent L shoulder pain 08/2021 prompting aspiration (09/25/21) which revealed elevated TNC (73652) with 81% PMNs with cultures positive for [...] thorough debridement.??The patient was subsequently admitted to [facility] for further management. Intraoperative cultures and [...] is consistent with aspiration results from original [facility] evaluation which is likely branch sales and service representative of the culprit organism causing [...] of Infectious Diseases OPAT monitoring program at [phone] after dismissal. Primary service to follow labs while patient is hospitalized. [facility] pharmacist to adjust dosing after dismissal 4. [...] 150 mg by mouth every morning. ??? amjqrjylom-tjgxududvmmts-tvsf (ESGIC) 50-325-40 mg per tablet Take 1 [...] mo ago Resulting Agency CULTURE RESULT??Abnormal?? [facility] CULTURE 1+ Staphylococcus coagulase negative [facility] GRAM STAIN ? 1+ PMNs [facility] GRAM STAIN ? No organisms seen [facility] GRAM STAIN ? 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 Hepatic Function Panel ??? Basic Metabolic Panel Spent 36 minutes in total time both qmfk-od-ftrh and non ikye-hq-huym to face documented in this encounter Plan of Treatment Upcoming Encounters Date Type Specialty Care Team Description 09/01/2022 Clinical Communication Admitting/Central Scheduling 09/06/2022 Appointment Radiology Alfredo Herrera O.P.A.-C. [address] [place] [address] 09/06/2022 Office Visit Orthopedic Surgery Cyrus Polk M.D. [address] [place] [address] documented as of this encounter Results Basic [...] 02/25/2022 DTL Black/ mL/min/BSA 11:19 AM CDT Irish Comment: ----ADDITIONAL INFORMATION---- Estimated GFR calculated using [...] Address City/State/ZIP Code Phon e Number [facility] - [address] [place] [address] [address] [place] [address] Laboratories-[facility] 200 [facility] Hepatic Function Panel (02/25/2022 10:09 AM CDT) [facility] gist Method Time Signature Bilirubin, Total, [...] Address City/State/ZIP Code Phon e Number [facility] - [address] [place], [place] [address] [facility] [place] [address] Laboratories-[facility] [address] documented in this encounter Visit Diagnoses Diagnosis Insurance Producer Antibiotic Treatment - Primary Infection Shoulder Prosthesis Subsequent Direct Infection Of Left Shoulder In Inf ectious And Parasitic Diseases Classified Elsewhere (HCC) Aftercare Total Shoulder Arthroplasty documented in this encounter Additional Health Concerns Assessment Noted Time PHQ-9 Depression Total Score: 16 02/11/2021 12:00 AM C DT documented as of this encounter Care Teams Still Cleaner Tube Relationship Specialty Start Date End Date Elsewhere, Pcp PCP - General Family Medicine 12/25/21 documented as of this encounter
--- OUTSIDE RECORDS SUMMARY | 2022-08-14 17:49 | XMS_ITS | Encounter Summary ---
:1965 Author Organization [facility] Address [address] [place] [address] Care Team Providers Name Role Phone Elsewhere, Pcp Primary Care Provider Unavailable Reason for Visit Reason Comments OPAT Intervention Encounter Details Date Type Department Care Team Description 01/28/2022 Clinical Communication Section of Ruth Eddy (Intervention Infectious T, R.N. ) Diseases in [address] [place] [phone] [place] [address] [place], [place] (Work) [phone] Social History Tobacco Use Types Packs/Day Years [...] you attend yarsani or Patient refused 2021 samaritan services? Do [...] are for now to obtain ALP trend. NOLOGY SALES REPRESENTATIVE Telephone Encounter - Desirae Domingo R.N. - 02/01/2022 12:11 PM CST Maritza calls from [place] regarding Alk phos from 01/28. It is greater than 1.5 the upper limit of normal. NOLOGY SALES REPRESENTATIVE Telephone Encounter - Su Greene, Pharm.D., R.Ph. - 01/29/2022 8:49 AM CST Reviewed WBC trend including WBC on 01/28, no changes at this time, see note from my colleague Jennifer Roca for details. NOLOGY SALES REPRESENTATIVE Telephone Encounter - Ruth Eddy R.N. - 01/29/2022 8:14 AM CST OPAT NOTE ?? Infusion Provider: [facility], phone: [phone], fax: [phone] Labs and site care at [facility], phone: [phone] Antimicrobial(s) currently prescribed: See Med List Hyperlink in note Firm stop date: 02/11/22 ?? Lab results from are viewable in the MCR record--listed as External Labs (received via fax, which has been uploaded to Document Viewer/Media) ?? Interpretation and action: The labs were reviewed. WBC and ANC are improving. I will send this to the provider for review. NOLOGY SALES REPRESENTATIVE Telephone Encounter - Jennifer Roca Pharm.D., R.Ph. - 01/28/2022 10:21 AM TECHNOLOGY SALES REPRESENTATIVE Pertinent labs and antimicrobial regimen as indicated [...] time. For monitoring: continue weekly OPAT labs. NOLOGY SALES REPRESENTATIVE Telephone Encounter - Ruth Eddy RBrittonN. - 01/28/2022 9:40 AM CST OPAT NOTE Infusion Provider: [facility], phone: [phone], fax: [phone] Labs and site care at [facility], phone: [phone] Antimicrobial(s) currently prescribed: See Med List Hyperlink in note Firm stop date: 02/11/22 Lab results from 01/21/2022 are viewable in the MCR record--listed as External Labs (received via fax, which has been uploaded to Document Viewer/Media) Interpretation and action: The labs were reviewed. WBC is 3.6 and ANC is 1.42. Alk Phos was not done. Labs will be [facility]. Orders were sent to [facility] that included alk phos that will be drawn today, 01-28-2022. NOLOGY SALES REPRESENTATIVE documented in this encounter Plan of Treatment Upcoming Encounters Date Type Specialty Care Team Description 09/01/2022 Clinical Communication Admitting/Central Scheduling 09/06/2022 Appointment Radiology Alfredo Herrera O.P.A.-C. [address] [place] [address] 09/06/2022 Office Visit Orthopedic Surgery Cyrus Polk M.D. [address] [place] [phone] documented as of this encounter Procedures Procedure Name Priority Date/Time Associated Comments Diagnosis CBC WITH DIFFERENTIAL, B Routine 01/28/2022 3:00 Results for this PM TECHNOLOGY SALES REPRESENTATIVE procedure are i n the results section. ALANINE AMINOTRANSFERASE Routine 01/28/2022 3:00 Results for this (ALT), S/P PM TECHNOLOGY SALES REPRESENTATIVE procedure are i n the results section. ALKALINE PHOSPHATASE, Routine 01/28/2022 3:00 Res ults for this S/P PM TECHNOLOGY SALES REPRESENTATIVE procedure are i n the results section. CREATININE WITH EGFR, Routine 01/28/2022 3:00 Res ults for this S/P PM TECHNOLOGY SALES REPRESENTATIVE procedure are i n the results section. [...] Results ALT (Alanine Aminotransferase) (01/28/2022 3:00 PM TECHNOLOGY SALES REPRESENTATIVE) athologist Signature EXT ALT 20 4 - 35 MISC REFERRAL LAB Specimen (Source) Anatomical Location Collection Method / Collectio n Time Received Time / Laterality Volume Blood (Blood, Venous) Laly Ward APRN, R.N. LAB BLOOD ADD-ON Performing Organization Address City/State/ZIP Code Phon e Number MISC REFERRAL LAB (ABNORMAL) Alkaline Phosphatase (01/28/2022 3:00 PM TECHNOLOGY SALES REPRESENTATIVE) athologist Signature EXT Alkaline 97 (A) 40 - 50 MISC REFERRAL Phosphatase LAB Specimen (Source) Anatomical Location Collection Method / Collectio n Time Received Time / Laterality Volume Blood (Blood, Venous) Laly Ward APRN R.N. LAB BLOOD ADD-ON Performing Organization Address [facility] Code Phon e Number MISC REFERRAL LAB Creatinine with Estimated GFR (01/28/2022 3:00 PM TECHNOLOGY SALES REPRESENTATIVE) athologist Signature EXT Creatinine 0.6 0.5 - 1.5 MISC REFERRAL mg/dL LAB Specimen (Source) Anatomical Location Collection Method / Collectio n Time Received Time / Laterality Volume Blood (Blood, Venous) Narrative This result has an attachment that is no t available. Laly Ward APRN, R.N. LAB BLOOD ADD-ON Performing Organization Address [facility] Code Phon e Number MISC REFERRAL LAB (ABNORMAL) CBC with Differential, Blood (01/28/2022 3:00 PM TECHNOLOGY SALES REPRESENTATIVE) Analysis Performed At Patho logist Time Signature [...] Time / Laterality Volume Blood (Blood, Venous) uGcci Salvador M.D. LAB BLOOD ADD-ON Performing Organization Address City/State/ZIP Code Phon e Number MISC REFERRAL LAB Creatinine with Estimated GFR (01/21/2022) athologist Signature EXT Creatinine 0.7 0.5 - 1.5 MISC REFERRAL mg/dL LAB Specimen (Source) Anatomical Location Collection Method / Collectio n Time Received Time / Laterality Volume Blood (Blood, Venous) Gucci Salvador M.D. LAB BLOOD ADD-ON Performing Organization Address City/State/ZIP Code Phon e Number MISC REFERRAL LAB (ABNORMAL) CBC with Differential, Blood (01/21/2022) [facility] gist Method Time Signature EXT Platelet 298 [...] documented as of this encounter Care Teams Jewelry Repairer Relationship Specialty Start Date End Date Elsewhere, Pcp PCP - General Family Medicine 12/25/21 documented as of this encounter
--- OUTSIDE RECORDS SUMMARY | 2022-08-14 17:49 | XMS_ITS | Encounter Summary ---
:[address] [facility] Address [address] [place] [address] Care Team Providers Name Role Phone Elsewhere, Pcp Primary Care Provider Unavailable Reason for Visit Reason Comments OPAT Lab request Encounter Details Date Type Department Care Team Description 01/26/2022 Clinical Communication Section of Ruth Eddy (Lab request) Infectious T, R.N. Diseases in [address] [place] [phone] [place] [address] [place], [place] (Work) [phone] Social History Tobacco Use Types Packs/Day Years [...] you attend caodaism or Patient refused 2021 buddhism services? Do [...] Miscellaneous Notes Telephone Encounter - Ruth Eddy RBetsy - 01/26/2022 4:13 PM CST [facility], phone: [phone] was called and message left to fax us lab results. Our fax and phone number was given. D RESEARCH ASSOCIATE documented in this encounter Plan of Treatment Upcoming Encounters Date Type Specialty Care Team Description 09/01/2022 Clinical Communication Admitting/Central Scheduling 09/06/2022 Appointment Radiology Alfredo Herrera O.P.A.-C. [address] [place] [address] 09/06/2022 Office Visit Orthopedic Surgery Cyrus Polk M.D. [address] [place] [address] documented as of this encounter Visit Diagnoses Not on filedocumented in this encounter Additional Health Concerns Assessment Noted Time PHQ-9 Depression Total Score: 16 02/11/2021 12:00 AM C DT documented as of this encounter Care Teams Investigation Division Lieutenant Relationship Specialty Start Date End Date Elsewhere, Pcp PCP - General Family Medicine 12/25/21 documented as of this encounter
--- OUTSIDE RECORDS SUMMARY | 2022-08-14 17:49 | XMS_ITS | Encounter Summary ---
:1965 Author Organization [facility] Address [address] [place] [address] Care Team Providers Name Role Phone Elsewhere, Pcp Primary Care Provider Unavailable Reason for Referral MRI/CAT/PET Scan (Routine) - Closed Specialty Diagnoses / Procedures Referred By Contact Refer red To Contact Radiology Diagnoses Painful Total Joint Arthroplasty Initial ([facility]) Michael Chino M.D. [facility] Procedures CT Shoulder Left without IV Contrast [address] [place] [address] Referral ID Status Reason Start Date Expiration Date Visits Requ ested Visits Authorized [id number] Closed 02/25/2022 02/25/2023 1 1 Encounter Details Date Type Department Care Team Description 02/25/2022 Orders Only Department of Michael Chino, Painful T otal Joint Orthopedic Surgery in [place].Neri Arthro plasty Initial [place], [place] ([facility]) [address] [place] [address] Social History Tobacco Use Types Packs/Day Years [...] you attend caodaism or Patient refused 2021 mormonism services? Do you belong to any clubs or No 05/17/2022 organizations such as caodaism groups, [employer], [employer] or athletic groups, or school groups? How [...] 09/06/2022 Appointment Radiology Alfredo Herrera O.P.A.-C. [address] [place] [phone] 09/06/2022 Office Visit Orthopedic Surgery Cyrus Polk M.D. [address] [place] [phone] documented as of this encounter Results CT [...] documented as of this encounter Care Teams Paper Production Engineer Relationship Specialty Start Date End Date Elsewhere, Pcp PCP - General Family Medicine 12/25/21 documented as of this encounter
--- OUTSIDE RECORDS SUMMARY | 2022-08-14 17:49 | XMS_ITS | Encounter Summary ---
:1965 Author Organization [facility] Address [address] [place] [address] Care Team Providers Name Role Phone Elsewhere, Pcp Primary Care Provider Unavailable Reason for Visit Reason Comments OPAT Care Coordination Encounter Details Date Type Department Care Team Description 01/22/2022 Clinical Communication Section of Steven Dennis (Care Infectious Diseases E, R.N. Coordination) in [address] [place] [phone] [place], [place] [phone] (Work) [phone] Social History Tobacco Use Types Packs/Day Years [...] you attend restoration or Patient refused 2021 bahai services? Do [...] IR. ??Is she able to come to [place] for IR PICC placement? ??If not, we'll [...] I spoke to Carolynn, the nurse at [facility]. She spoke to their wound care nurse and she would liketo try some different dressings first before they move the PICC to the chest. They cannot place a PICC in the chest in [place], so if needed, the patient would have to come to [place]. The patientwill be there at 2 pm today. She will call back with the patient so we all can come up with a plan together. Addendum: We missed a call from Carolynn, infusion nurse at [facility]. Her message stated that PICCsite care was performed and the site looks better. The wound care team has a plan and is hoping thatblessinge can keep her current PICC. DATA LEAD Telephone Encounter - Tejal Rudolph R.N. - 01/22/2022 4:46 PM BIG DATA LEAD I have been unable to reach the patient, but I notified nurse Carolynn at [facility] of Dr. Boris Chaidez's recommendation, that they could try moving the line to the other arm and use a midline but avoid a chest PICC. I faxed the order for midline placement. Nurse Carolynn at [place] questioned whether the midline could be moved to the other (left) arm, because patient wears a sling on that arm. DATA LEAD Telephone Encounter - Steven Dennis R.N. - [...] She did get a special dressing from [facility] to use, but it doesn't seem to be helping. Dressing was changed at [facility] today and they applied some guaze to help with the drainage. The [facility] nurse told the patient that [...] following references were used: nursing clinical judgement DATA LEAD documented in this encounter Plan of Treatment Upcoming Encounters Date Type Specialty Care Team Description 09/01/2022 Clinical Communication Admitting/Central Scheduling 09/06/2022 Appointment Radiology Alfredo Herrera O.P.A.-C. [address] [place] [address] 09/06/2022 Office Visit Orthopedic Surgery Cyrus Polk M.D. 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
--- OUTSIDE RECORDS SUMMARY | 2022-08-14 17:49 | XMS_ITS | Encounter Summary ---
:1965 Author Organization [facility] Address [address] [place] [address] Care Team Providers Name Role Phone Elsewhere, Pcp Primary Care Provider Unavailable Reason for Visit Reason Comments OPAT Monitoring Complete Encounter Details Date Type Department Care Team Description 02/12/2022 Clinical Communication Section of Kylie Siddiqui (Monitoring Infectious Diseases M, R.N. Complete) in [facility] [phone] [place] (Work) [address] [place] [phone] Social History Tobacco Use Types Packs/Day Years [...] you attend yarsani or Patient refused 2021 restoration services? Do [...] Complete) Information Discussed Princess, a nurse from [place], called to see if any labs need [...] Appointment Radiology Alfredo Herrera O.P.A.-C. [address] [place] [address] 09/06/2022 Office Visit Orthopedic Surgery Cyrus Polk M.D. [address] [place] [address] documented as of this encounter Visit Diagnoses Not on filedocumented in this encounter Additional Health Concerns Assessment Noted Time PHQ-9 Depression Total Score: 16 02/11/2021 12:00 AM C DT documented as of this encounter Care Teams Window Glass Installer Relationship Specialty Start Date End Date Elsewhere, Pcp PCP - General Family Medicine 12/25/21 documented as of this encounter
--- OUTSIDE RECORDS SUMMARY | 2022-08-14 17:49 | XMS_ITS | Encounter Summary ---
:1965 Author Organization [facility] Address [address] [place] [address] Care Team Providers Name Role Phone Elsewhere, Pcp Primary Care Provider Unavailable Encounter Details Date Type Department Care Team Description 02/26/2022 Clinical Communication [facility] Blanca Galan Eisenberg C.Ph.T. 201 [facility] [phone] [place], [place] (Work) [phone] Social History Tobacco Use [...] you attend congregational or Patient refused 2021 presybeterian services? Do [...] Communication Admitting/Central Scheduling 09/06/2022 Appointment Radiology Alfredo Herrera, OBrittonPBrittonAOmar [address] [place] [address] 09/06/2022 Office Visit Orthopedic Surgery Cyrus [place] M.D. [address] [place] [address] documented as of this encounter Visit Diagnoses Not on filedocumented in this encounter Additional Health Concerns Assessment Noted Time PHQ-9 Depression Total Score: 16 02/11/2021 12:00 AM C DT documented as of this encounter Care Teams Semiautomatic Taper Operator Relationship Specialty Start Date End Date Elsewhere, Pcp PCP - General Family Medicine 12/25/21 documented as of this encounter
--- OUTSIDE RECORDS SUMMARY | 2022-08-14 17:49 | XMS_ITS | Encounter Summary ---
:1965 Author Organization [facility] Address [address] [place] [address] Care Team Providers Name Role Phone Elsewhere, Pcp Primary Care Provider Unavailable Encounter Details Date Type Department Care Team Description 02/26/2022 Surgery RST SE[facility]AN OR Cyrus [place], ARTHROPLASTY REPLACEMENT [address] [facility] [address] 200 [facility] [phone] [place] [address] Social History Tobacco Use Types Packs/Day Years [...] you attend gnosticism or Patient refused 2021 yarsani services? Do [...] or the highest technical, or vocational p [employer] degree you have received? Sex Assigned at [...] THC multivit-min/iron/folic/ Take 1 tablet by 0 [id number] (HAIR, SKIN AND mouth daily. NAILS ADVANCED [...] page the [facility] pager at [phone] For urgent matters from 6 pm until 6 am, please page [facility] at [phone] Michael Chino M.D. - 02/26/2022 3:03 PM [...] am until 6 pm, please page the [facility] pager at [phone] For urgent matters from 6 pm until 6 am, please page [facility] at [phone] Clemente Buck, Pharm.D., R.Ph. - 02/26/2022 9:17 [...] Take 150 mg by mouth every morning. vlkgnsrbay-wfdwgpndedlwn-kwck (ESGIC) 50-325-40 mg per tablet Past Week [...] 1 spray as needed. 5 mg THC multivit-min/iron/folic/cps564 (HAIR, SKIN AND NAILS ADVANCED ORAL) 02/25/2022 [...] (HCC) ??? Nicotine Dependence Unspecified ??? Other Public Address System Operator Current Drug Therapy ??? Direct Infection [...] Right Lives With: Alone Receives Help From: wall attendant, Family, Friend(s) ADL Assistance: Required assistance ADL Assistance Comments: Gets help from [employer] for her bath/shower and for her meals IADL/Homemaking Assistance: Required assistance IADL/Homemaking Assistance Comments: Gets help for housecleaning Driving: Independent Driving Comments: takes her cane and medical alert with her. Occupational Role: On disability Occupational Role Comments: Previously worked at a [employer] Prior Mobility/Functional Transfers Level of Banner: Modified independent Previous Transfer/Mobility Assistance Comments: Patient [...] mask during therapy session: yes Outcome Measures [facility] Inpatient Short Form: -[facility] Basic Mobility (V.2) How much [...] AM-PAC Basic Mobility (V.2) Raw Score: 24 -[facility] Basic Mobility (V.2) Standardized Score: 57.68 Interpretation: Clinicians answer the -[facility] Inpatient Short Form based on [...] Prescriptions were sent and filled at the [facility] pharmacy. Catalina Mccloud R.N. - 02/27/2022 [...] elsewhere status post placement antibiotic spacer. A mailroom assistant was necessary for one or more [...] be placed with approximately 70% contact with stillaguamish bone. The more superior aspect of the [...] of antibiotic spacer, implantation of reverse arthroplasty, [id number] C[place] M.D. CT CT Job ID: [id number] documented in this encounter Plan of Treatment Upcoming Encounters Date Type Specialty Care Team Description 09/01/2022 Clinical Communication Admitting/Central Scheduling 09/06/2022 Appointment Radiology Alfredo Herrera O.P.A.-C. [address] [place] [address] 09/06/2022 Office Visit Orthopedic Surgery Cyrus [place] M.D. [address] [place] [address] documented as of this encounter Procedures Procedure [...] M.D. LAB BLOOD ADD-ON Performing Organization Address City/State/[facility] Code Phon e Number [facility] - [address] [place] [address] 559 05 [facility] [place] [address] Laboratories-[facility] 200 [facility] (ABNORMAL) Basic Metabolic Panel (02/26/2022 3:47 [...] 02/26/2022 DTL Black/ mL/min/BSA 6:27 PM CDT South Korean Comment: ----ADDITIONAL INFORMATION---- Estimated GFR calculated using [...] [facility] - [address] [place] [address] 05 [facility] [place] [address] Laboratories-[address] (ABNORMAL) CBC with Differential, Blood (02/26/2022 3:47 PM CDT) [facility] Method Time Signature Hemoglobin 8.8 (L) 11.6 [...] [facility] - 200 [place], [place] [address] [facility] [place] [place] [address] Laboratories-[facility] [address] DX Shoulder Left 1 View (02/26/2022 2:47 [...] Aerobe / Anaerobe+Susc (02/26/2022 1:00 PM CDT) [facility] Method Time Signature Bacteria Cult, No growth 03/12/2022 DTL Aerobe/Anaerob after 14 2:02 PM CDT e+Susc days of incubation. Specimen Anatomical Collection Method Collection Time Receive d Time (Source) Location / / Volume Laterality Shoulder, Left 02/26/2022 1:00 PM 022 1:41 CDT PM CDT Comment: Specimen Source Site: Tissue 1 Narrative [facility] - 03/12/2022 2:02 PM CDT Bacterial Culture: Placed in Bactec aero bic and Bactec anaerobic bottles Cyrus [place] M.D. LAB MICROBIOLOGY - GENERAL O MARY Performing Organization Address City/[facility] Code Phon e Number [facility] - [address] [facility] Bacteria Cult, Aerobe / Anaerobe+Susc (02/26/2022 1:00 PM CDT) [facility] Method Time Signature Bacteria Cult, No growth 03/12/2022 DTL Aerobe/Anaerob after 14 2:02 PM CDT e+Susc days of incubation. Specimen Anatomical Collection Method Collection Time Receive d Time (Source) Location / / Volume Laterality Shoulder, Left 02/26/2022 1:00 PM 022 1:38 CDT PM CDT Comment: Specimen Source Site: Tissue 3 Narrative [facility] - 03/12/2022 2:02 PM CDT Bacterial Culture: Placed in Bactec aero bic and Bactec anaerobic bottles Cyrus [place] M.D. LAB MICROBIOLOGY - GENERAL O MARY Performing Organization Address City/[facility]/ZIP Code Phon e Number [facility] - [address] [place], [place] [address] [facility] DTL [place], [place] [phone] [place] [address] [address] [facility] Bacteria Cult, Aerobe / Anaerobe+Susc (02/26/2022 1:00 PM CDT) Patholo gist Method Time Signature Bacteria Cult, No growth 03/12/2022 DTL Aerobe/Anaerob after 14 2:02 PM CDT e+Susc days of incubation. Specimen Anatomical Collection Method Collection Time Receive d Time (Source) Location / / Volume Laterality Shoulder, Left 02/26/2022 1:00 PM 022 1:36 CDT PM CDT Comment: Specimen Source Site: Tissue 2 Narrative [facility] - [facility] - 03/12/2022 2:02 PM CDT Bacterial Culture: Placed in Bactec aero bic and Bactec anaerobic bottles Cyrus [place] M.D. LAB MICROBIOLOGY - GENERAL O RDERABLES Performing Organization Address City/State/ZIP Code Phon e Number [facility] - [address] [place] [address] 05 [place] [address] Laboratories-[facility] 200 [facility] Surgical Pathology, Frozen Lab (02/26/2022 1:00 [...] permanent sections. ??Grossed by Nan Ledezma M.S., AMELIA([facility]). Block Summary A Left shoulder 03/01/2022 METH [...] [facility] - [address] [place], [place] [address] [facility] [place] [address] Laboratories-[facility] [address] documented in this encounter [...] XL) 08 (Given - Provider: Catalina Mccloud RBrittonNBritton) 150 [...] 0011 (Not Given - Provider: Lauren garcia R.N. - Reason: Contraindicated)0606 (Given - Provider: Lauren [...] 0825 (Given - Provider: Catalina Mccloud, R.N.) 40 mg, oral, 2 times daily, [...] from OR - Provi marquis: Guillermina Oneill RBrittonNBritton) 20 mL/hr, intravenous, Continuous, Start ing [...] (CANCELED) 1136 (Given - Provider: Donna Mercado R.NBritton) 50 mcg, intravenous, Every 2 min PRN, [...] RBrittonN., ONC)0433 (Given - Provider: Lauren Mckeon R.N.)0727 (Given - Provider: Catalina Mccloud R.N.) 10 [...] documented as of this encounter Care Teams Comber Setter Relationship Specialty Start Date End Date Elsewhere, Pcp PCP - General Family Medicine 12/25/21 documented as of this encounter
--- OUTSIDE RECORDS SUMMARY | 2022-08-14 17:49 | XMS_ITS | Encounter Summary ---
:1965 Author Organization [facility] Address [address] [place] [address] Care Team Providers Name Role Phone Elsewhere, Pcp Primary Care Provider Unavailable Reason for Referral MRI/CAT/PET Scan (Routine) - Closed Specialty Diagnoses / Procedures Referred By Contact Refer red To Contact Radiology Diagnoses Painful Total Joint Arthroplasty Initial ([facility]) Michael Chino M.D. [facility] Procedures CT Shoulder Left without IV Contrast [address] [place] [phone] Referral ID Status Reason Start Date Expiration Date Visits Requ ested Visits Authorized [id number] Closed 02/25/2022 02/25/2023 1 1 Reason for Visit MRI/CAT/PET Scan (Routine) - Closed Specialty Diagnoses / Procedures Referred By Contact Refer red To Contact Radiology Diagnoses Painful Total Joint Arthroplasty Initial ([facility]) Michael Chino M.D. [facility] Procedures CT Shoulder Left without IV Contrast [address] [place] [phone] Referral ID Status Reason Start Date Expiration Date Visits Requ ested Visits Authorized [id number] Closed 02/25/2022 02/25/2023 1 1 Encounter Details Date Type Department Care Team Description 02/25/2022 Hospital Encounter Department of Michael Chino Total Joint Radiology, Severiano Celaya M.D. Arthropl [facility]) [place], [place] [address] [place] [phone] Social History Tobacco Use Types Packs/Day Years [...] you attend christianity or Patient refused 2021 zoroastrian services? Do [...] THC multivit-min/iron/folic/ Take 1 tablet by 0 [id number] (HAIR, SKIN AND mouth daily. NAILS ADVANCED [...] 09/06/2022 Appointment Radiology Alfredo Herrera O.P.A.-C. [address] [place] [phone] 09/06/2022 Office Visit Orthopedic Surgery Cyrus [place] M.D. [address] [place] [address] documented as of this encounter Procedures Procedure [...] as of this encounter Care Teams Executive Staff Assistant Relationship Specialty Start Date End Date Elsewhere, Pcp PCP - General Family Medicine 12/25/21 documented as of this encounter
--- OUTSIDE RECORDS SUMMARY | 2022-08-14 17:49 | XMS_ITS | Encounter Summary ---
:1965 Author Organization [facility] Address [address] [place] [address] Care Team Providers Name Role Phone Elsewhere, Pcp Primary Care Provider Unavailable Reason for Visit Reason Comments Labs Only Encounter Details Date Type Department Care Team Description 02/05/2022 Documentation Section of Infectious Amna Kaur , Labs Only Diseases in [facility] 200 [facility] 200 [place] [address] [phone] Social History Tobacco Use Types Packs/Day Years [...] attend roman catholic or Patient refused 2021 hindu services? Do [...] as of this encounter Progress Notes Amna Kaur RRebekah. - 02/05/2022 4:14 PM CST Labs entered at this time. CHANGER documented in this encounter Plan of Treatment Upcoming Encounters Date Type Specialty Care Team Description 09/01/2022 Clinical Communication Admitting/Central Scheduling 09/06/2022 Appointment Radiology Alfredo Herrera O.P.A.-C. [address] [place] [phone] 09/06/2022 Office Visit Orthopedic Surgery Cyrus [place] M.D. [address] [place] [phone] documented as of this encounter Procedures Procedure Name Priority Date/Time Associated Comments Diagnosis CBC WITH DIFFERENTIAL, B Routine 02/04/2022 3:06 Results for this PM CELL CHANGER procedure are i n the results section. ALANINE AMINOTRANSFERASE Routine 02/04/2022 3:06 Results for this (ALT), S/P PM CELL CHANGER procedure are i n the results section. ALKALINE PHOSPHATASE, Routine 02/04/2022 3:06 Res ults for this S/P PM CELL CHANGER procedure are i n the results section. CREATININE WITH EGFR, Routine 02/04/2022 3:06 Res ults for this S/P PM CELL CHANGER procedure are i n the results section. documented in this encounter Results ALT (Alanine Aminotransferase) (02/04/2022 3:06 PM CELL CHANGER) P athologist Signature EXT ALT 20 4 - 35 OTHER (SPECIFY IN CELLAR PUMPER) Specimen (Source) Anatomical Location Collection Method / Collectio n Time Received Time / Laterality Volume Blood (Blood, Venous) Resulting Agency Comment [facility] Gucci Salvador M.D. LAB BLOOD ADD-ON Performing Organization Address City/State/ZIP Code Phon e Number OTHER (SPECIFY IN CELLAR PUMPER) OTHER (SPECIFY IN CELLAR PUMPER) N/A Alkaline Phosphatase (02/04/2022 3:06 PM CELL CHANGER) P athologist Signature EXT Alkaline 102 40 - 150 OTHER (SPECIFY Phosphatase IN CELLAR PUMPER) Specimen (Source) Anatomical Location Collection Method / Collectio n Time Received Time / Laterality Volume Blood (Blood, Venous) Resulting Agency Comment [facility] Gucci Salvador M.D. LAB BLOOD ADD-ON Performing Organization Address City/State/ZIP Code Phon e Number OTHER (SPECIFY IN CELLAR PUMPER) OTHER (SPECIFY IN CELLAR PUMPER) N/A Creatinine with Estimated GFR (02/04/2022 3:06 PM CELL CHANGER) P athologist Signature EXT Creatinine 0.7 0.5 - 1.5 OTHER (SPECIFY mg/dL IN CELLAR PUMPER) Specimen (Source) Anatomical Location Collection Method / Collectio n Time Received Time / Laterality Volume Blood (Blood, Venous) Resulting Agency Comment [facility] Gucci Salvador M.D. LAB BLOOD ADD-ON Performing Organization Address City/State/ZIP Code Phon e Number OTHER (SPECIFY IN CELLAR PUMPER) OTHER (SPECIFY IN CELLAR PUMPER) N/A (ABNORMAL) CBC with Differential, Blood (02/04/2022 3:06 PM CELL CHANGER) P athologist Signature EXT Platelet 253 150 - 450 OTHER Count (SPECIFY IN CELLAR PUMPER) EXT Hemoglobin 9.1 (A) 12 - 15.5 OTHER (SPECIFY IN CELLAR PUMPER) EXT White Blood 4.0 (A) 5.0 - 10.0 OTHER Cell (WBC) (SPECIFY IN Count CELLAR PUMPER) Specimen (Source) Anatomical Location Collection Method / Collectio n Time Received Time / Laterality Volume Blood (Blood, Venous) Narrative This result has an attachment that is no t available. Resulting Agency Comment [facility] Gucci Salvador M.D. LAB BLOOD ADD-ON Performing Organization Address City/State/ZIP Code Phon e Number OTHER (SPECIFY IN CELLAR PUMPER) OTHER (SPECIFY IN CELLAR PUMPER) N/A documented in this encounter Visit Diagnoses Not on filedocumented in this encounter Additional Health Concerns Assessment Noted Time PHQ-9 Depression Total Score: 16 02/11/2021 12:00 AM C DT documented as of this encounter Care Teams Financial Services Sales Representative Relationship Specialty Start Date End Date Elsewhere, Pcp PCP - General Family Medicine 12/25/21 documented as of this encounter
--- OUTSIDE RECORDS SUMMARY | 2022-08-14 17:49 | XMS_ITS | Encounter Summary ---
:1965 Author Organization [facility] Address [address] [place] [address] Care Team Providers Name Role Phone Elsewhere, Pcp Primary Care Provider Unavailable Reason for Visit Reason Comments OPAT Normal labs Encounter Details Date Type Department Care Team Description 02/09/2022 Clinical Communication Section of Ruth Eddy (Normal labs) Infectious T, R.N. Diseases in [address] [place] [phone] [place] [address] [place], [place] (Work) [phone] Social History Tobacco Use Types Packs/Day Years [...] you attend faith or Patient refused 2021 hoahaoism services? Do [...] Telephone Encounter - Ruth Eddy RBetsy - 02/09/2022 10:19 AM CDT OPAT NOTE ?? Infusion Provider: Dennis [facility], phone: [phone], fax: [phone] Labs and site care at [facility], phone: [phone] Antimicrobial(s) currently prescribed: See Med List Hyperlink [...] Appointment Radiology Alfredo Herrera O.P.A.-C. [address] [place] [address] 09/06/2022 Office Visit Orthopedic Surgery Cyrus [place] M.D. [address] [place] [address] documented as of this encounter Visit Diagnoses Not on filedocumented in this encounter Additional Health Concerns Assessment Noted Time PHQ-9 Depression Total Score: 16 02/11/2021 12:00 AM C DT documented as of this encounter Care Teams Dry Press Operator Relationship Specialty Start Date End Date Elsewhere, Pcp PCP - General Family Medicine 12/25/21 documented as of this encounter
--- OUTSIDE RECORDS SUMMARY | 2022-08-14 17:49 | XMS_ITS | Encounter Summary ---
:1965 Author Organization [facility] Address [address] [place] [address] Care Team Providers Name Role Phone Elsewhere, Pcp Primary Care Provider Unavailable Encounter Details Date Type Department Care Team Description 02/26/2022 Clinical Communication RST [facility] Austyn Breaux, Pharmacy U[facility] Alejo [address] [facility] [address] Social History Tobacco Use Types [...] you attend pentecostal or Patient refused 2021 rastafarian services? Do [...] Appointment Radiology Alfredo Herrera O.PBrittonAOmar [address] [place] [address] 09/06/2022 Office Visit Orthopedic Surgery Cyrus [place] M.D. [address] [place] [address] documented as of this encounter Visit Diagnoses Not on filedocumented in this encounter Additional Health Concerns Assessment Noted Time PHQ-9 Depression Total Score: 16 02/11/2021 12:00 AM C DT documented as of this encounter Care Teams Patient Support Specialist Relationship Specialty Start Date End Date Elsewhere, Pcp PCP - General Family Medicine 12/25/21 documented as of this encounter
--- OUTSIDE RECORDS SUMMARY | 2022-08-14 17:49 | XMS_ITS | Encounter Summary ---
:1965 Author Organization [facility] Address [address] [place] [address] Care Team Providers Name Role Phone Elsewhere, Pcp Primary Care Provider Unavailable Encounter Details Date Type Department Care Team Description 01/08/2022 Orders Only Pharmacy Prior Auth RO Elsewhere, Pcp [phone] Social History Tobacco Use Types Packs/Day Years [...] you attend rastafarian or Patient refused 2021 latter-day services? Do [...] Appointment Radiology Alfredo Herrera O.P.A.-C. [address] [place] [address] 09/06/2022 Office Visit Orthopedic Surgery Cyrus [place] M.D. [address] [place] [address] documented as of this encounter Visit Diagnoses [...]
--- OUTSIDE RECORDS SUMMARY | 2022-08-14 17:49 | XMS_ITS | Encounter Summary ---
:1965 Author Organization [facility] Address [address] [place] [address] Care Team Providers Name Role Phone Elsewhere, Pcp Primary Care Provider Unavailable Reason for Visit Outpatient (Routine) - Closed Specialty Diagnoses / Procedures Referred By Contact Refer red To Contact Orthopedic Surgery Diagnoses Pain Shoulder Left Alfredo Herrera, [facility] O.P.A.-C [address] [place] [phone] Referral ID Status Reason Start Date Expiration Date Visits Requ ested Visits Authorized [id number] Closed 12/30/2021 12/30/2022 1 1 Encounter Details Date Type Department Care Team Description 02/25/2022 Office Visit Department of Orthopedic Cyrus [place] , Pain Shoulder Left Surgery in [facility] [address] [place] [address] [address] [place] [phone] Social History Tobacco Use Types Packs/Day Years [...] you attend druze or Patient refused 2021 religion services? Do you belong to any clubs or No 05/17/2022 organizations such as druze groups, webtides, fraAkampus or athletic groups, or school groups? How [...] may involve the use of a medical records assistant made by a company [employer] I or one of my partners have collaborated to design, develop, or improve orthopedic implants, instruments, or products. Both the [facility] and the individual surgeons involved receive royalty payments from the use of those specific devices at other institutions, but no royalties or any other payments are paid for the use of those devices with any [facility] patient. The clinical rationale for the use of those devices as well as the availability and applicability of alternative devices was reviewed. He understands that the final decision for the use of a specific medical records assistant often is made at the time of surgery. All of his questions were answered; he understands and agrees with my approach to device selection and wants to proceed. documented in this encounter Plan of Treatment Upcoming Encounters Date Type Specialty Care Team Description 09/01/2022 Clinical Communication Admitting/Central Scheduling 09/06/2022 Appointment Radiology Alfredo Herrera O.P.A.-C. [address] [place] [address] 09/06/2022 Office Visit Orthopedic Surgery Cyrus [place] M.D. [address] [place] [address] documented as of this encounter Visit Diagnoses Diagnosis Pain Shoulder Left documented in this encounter Additional Health Concerns Infection Onset Date Last Indicated Resolved Time COVID19 Pending 02/25/2022 02/25/2022 02/25/2022 3:59 PM CDT Assessment Noted Time PHQ-9 Depression Total Score: 16 02/11/2021 12:00 AM C DT documented as of this encounter Care Teams Grain Thresher Relationship Specialty Start Date End Date Elsewhere, Pcp PCP - General Family Medicine 12/25/21 documented as of this encounter
--- OUTSIDE RECORDS SUMMARY | 2022-08-14 17:50 | XMS_ITS | Encounter Summary ---
:1965 Author Organization [facility] Address [address] [place] [id number] Care Team Providers Name Role Phone Elsewhere, Pcp Primary Care Provider Unavailable Reason for Referral Outpatient (Routine) - Closed Specialty Diagnoses / Procedures Referred By Contact Refer red To Contact Infectious Diseases Diagnoses Aftercare Total Shoulder Arthroplasty Jose Guadalupe Nixon [place] M.D. 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 Follow-up [place], [place] [address] [place] [phone] [place] [address] Social History Tobacco Use Types Packs/Day Years [...] you attend buddhism or Patient refused 2021 advent services? Do you belong to any clubs or No 05/17/2022 organizations such as buddhism groups, unions, [employer] or athletic groups, or school groups? How [...] 09/06/2022 Appointment Radiology Alfredo Herrera O.P.A.-C. [address] [place] [phone] 09/06/2022 Office Visit Orthopedic Surgery Cyrus Polk M.D. [address] [place] [phone] Scheduled Referrals Name Type Priority Associated Diagnoses Order S chedule Infectious Disease Outpatient Routine Aftercare Total 1 [...] M.D. LAB BLOOD ADD-ON Performing Organization Address City/State/[facility] Code Phon e Number [facility] - [address] [place], [place] [address] [place] [address] [place] [address] Laboratories-[address] CRP (C-Reactive Protein) (02/25/2022 10:09 AM CDT) P athologist Signature C-Reactive <3.0 <=8.0 mg/L 02/25/2022 DTL Protein (CRP), 11:34 AM CDT S Specimen Anatomical Collection Method Collection Time Receive d Time (Source) Location / / Volume Laterality Blood (Blood, 02/25/2022 10:09 02/25/2022 Venous) AM CDT 11:00 AM CDT Jose Guadalupe Nixon M.D. LAB BLOOD ADD-ON Performing Organization Address City/State/[facility] Code Phon e Number [facility] - [address] [place], [place] [address] [facility] [place] [id number] Laboratories-[address] (ABNORMAL) CBC with Differential, Blood (02/25/2022 [...] Organization Address City/State/ZIP Code Phon e Number [facility] - [address] [place], [place] [address] [facility] [place] [address] Laboratories-[facility] [address] documented in this encounter Visit Diagnoses Diagnosis Aftercare Total Shoulder Arthroplasty - Primary documented in this encounter Additional Health Concerns Assessment Noted Time PHQ-9 Depression Total Score: 16 02/11/2021 12:00 AM C DT documented as of this encounter Care Teams Central Office Inspector Relationship Specialty Start Date End Date Elsewhere, Pcp PCP - General Family Medicine 12/25/21 documented as of this encounter
--- OUTSIDE RECORDS SUMMARY | 2022-08-14 17:50 | XMS_ITS | Encounter Summary ---
:1965 Author Organization [facility] Address [address] [place] [address] Care Team Providers Name Role Phone Elsewhere, Pcp Primary Care Provider Unavailable Encounter Details Date Type Department Care Team Description 12/30/2021 Surgery RST SEBAS MORAN OR Cyrus Polk, ARTHROPLASTY RESECTION [address] [facility] [place] [address] 0001 [address] [facility] [phone] [place] [phone] Social History Tobacco Use Types Packs/Day Years [...] you attend catholic or Patient refused 2021 taoist services? Do [...] Comments Blood Pressure 119/74 12/30/2021 12:47 PM SUPERVISOR CELL MAINTENANCE Pulse 79 12/30/2021 12:47 PM SUPERVISOR CELL MAINTENANCE Temperature 36.8 ??C (98.2 ??F) 12/30/2021 11:22 AM SUPERVISOR CELL MAINTENANCE Respiratory Rate 20 12/30/2021 12:47 PM SUPERVISOR CELL MAINTENANCE Oxygen Saturation 99% 12/30/2021 12:47 PM SUPERVISOR CELL MAINTENANCE Inhaled Oxygen Concentration - - Weight 69.9 kg (154 lb 1.6 12/30/2021 11:22 AM oz) SUPERVISOR CELL MAINTENANCE Height 150.5 cm (4' 11.25) 12/30/2021 11:22 AM no shoe s/boots SUPERVISOR CELL MAINTENANCE Body Mass Index 30.86 12/30/2021 11:22 AM SUPERVISOR CELL MAINTENANCE documented in this encounter Discharge Summaries Dario Carrera M.D. - 01/01/2022 8:50 AM CST DISCHARGE SUMMARY BRIEF OVERVIEW Hospital: [facility] Discharge Provider: Cyrus Polk M.D. [...] RST ROEI OR DISCHARGE DISPOSITION Home-Health Care [facility] [6] ACTIVE ISSUES REQUIRING FOLLOW UP Active [...] were provided to the patient and caregiver(s). RVISOR CELL MAINTENANCE documented in this encounter Discharge Instructions AttachmentsThe following attachments cannot be sent through Care Everywhere. Continuous Nerve-Block Infusion System: Often called a ???pain pump?? (Citizen [place]) documented in this encounter Medications at Time [...] needed. multivit-min/iron/folic/ Take 1 tablet by 0 snt254 (HAIR, SKIN AND mouth daily. NAILS ADVANCED [...] signs of local anesthetic systemic toxicity, occur. RVISOR CELL MAINTENANCE Fatemeh Pena R.N. - 01/01/2022 5:28 PM [...] when she got up for the day. RVISOR CELL MAINTENANCE Ruth Gonzalez PAna, D.P.T. - 01/01/2022 4:29 [...] mask during therapy session: no Outcome Measures [facility] Inpatient Short Form: -[facility] Basic Mobility (V.2) How much help from [...] 3-5 steps with a railing?: A Little AM-[facility] Basic Mobility (V.2) Raw Score: 23 -[facility] Basic Mobility (V.2) Standardized Score: 50.88 Interpretation: Clinicians answer the -[facility] Inpatient Short Form based on observed patient [...] quad cane since it is not available [facility] by prescription. Barriers to Discharge Home: Other [...] (min): 23 min Ruth Gonzalez P.T., D.P.T. RVISOR CELL MAINTENANCE Elvira Duncan R.N. - 01/01/2022 3:21 PM [...] educational pamphlet Continuous Nerve-Block Infusion System ( [id number]).?? Discussed at home removal of nervecatheter, signs of toxicity, and provided the 20/06 number to call with questions.?? All questions answered. On-Q infusion will end Wednesday 01/03 at 2230. Informed patient she may wait until Tuesday morning to remove if she is sleeping. Note OnQ will not be empty as running at 6ml/hr with fill of 550cc. She is aware of this. RVISOR CELL MAINTENANCE Thao You L.I.C.S.W., M.S.W. - 01/01/2022 11:23 AM CST SUBJECTIVE Referral Data The patient was seen for ongoing discharge needs. A list of infusion options (that patient/family geographically resides or requests) has been provided to and reviewed with patient/family. Disclaimers: Financial disclosure provided informing patient of our ownership and financial relationship of the [facility] emergency room/home health & hospice agencies. Reviewed insurance coverage, [...] Selected Services Address Phone Fax Patient Preferred [facility] Infusion and IV Therapy [address], [place] [address] [phone] Contact: Intake NURSING: - Adjust the [...] be managed by Outpatient Facility: [facility] Address: [address] [place] [address] Contact: Princess Jimenez will provide IV access [...] continue to follow. Joe Ervin, M.S.WBritton 01/01/2022 RVISOR CELL MAINTENANCE Gucci Salvador M.D. - 01/01/2022 10:45 AM CST DEMOGRAPHIC INFORMATION [facility] Number:[id number] Patient Name: Angie [...] questions answered to patient's satisfaction. Please page [phone] for questions. 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 [id number] Pamela Leonard PharmAlejandrina, R.Ph. - 01/01/2022 10:14 [...] on post-operative opioids Pamela Crawford PharmAlejandrina, R.Ph. [phone] Jose Guadalupe Washington M.D. - 01/01/2022 8:31 AM CST Infectious Diseases Orthopedic Surgery [facility] Consulting Service Progress Note SUBJECTIVE -No acute [...] Date/Time Bacteria / Mandi Culture, Blood #2 [[id number]] Collected: 12/31/21 1604 Lab Status: In process Specimen: Blood, Peripheral Draw Updated: 12/31/21 1651 Narrative: Received Bactec aerobic and Bactec anaerobic bottles Specimen Information: Specimen ID: [id number] Specimen Source: Blood, Peripheral Draw Specimen Comment: Specimen Source Site: Blood Specimen Collection Start Date: 12/31/2021 4:05 PM Specimen Received Date: 12/31/2021 4:51 PM Specimen ID: [id number] Specimen Source: Blood, Peripheral Draw Specimen Comment: Specimen Source Site: Blood Specimen Collection Start Date: 12/31/2021 4:05 PM Specimen Received Date: 12/31/2021 4:51 PM Specimen ID: [id number] Specimen Source: Blood, Peripheral Draw Specimen Comment: Specimen Source Site: Blood Specimen Collection Start Date: 12/31/2021 4:04 PM Specimen Received Date: 12/31/2021 4:51 PM Bacteria / Mandi Culture, Blood #1 [[id number]] Collected: 12/31/21 1552 Lab Status: In process Specimen: Blood, Peripheral Draw Updated: 12/31/21 1651 Narrative: Received Bactec aerobic and Bactec anaerobic bottles Specimen Information: Specimen ID: [id number] Specimen Source: Blood, Peripheral Draw Specimen Comment: Specimen Source Site: Blood Specimen Collection Start Date: 12/31/2021 3:52 PM Specimen Received Date: 12/31/2021 4:50 PM Specimen ID: [id number] Specimen Source: Blood, Peripheral Draw Specimen Comment: Specimen Source Site: Blood Specimen Collection Start Date: 12/31/2021 3:53 PM Specimen Received Date: 12/31/2021 4:50 PM Specimen ID: [id number] Specimen Source: Blood, Peripheral Draw Specimen Comment: Specimen Source Site: Blood Specimen Collection Start Date: 12/31/2021 3:53 PM Specimen Received Date: 12/31/2021 4:50 PM Bacteria Cult, Aerobe / Anaerobe+Susc [[id number]] Collected: 12/30/21 1411 Lab Status: Preliminary result Specimen: Shoulder, Left Updated: 12/31/21 1601 Bacteria Cult, Aerobe/Anaerobe+Susc No growth to date. Narrative: Bacterial Culture: Placed in Bactec aerobic and Bactec anaerobic bottles Bacteria Cult, Aerobe / Anaerobe+Susc [[id number]] Collected: 12/30/21 1405 Lab Status: Preliminary result Specimen: Synovial Fluid, Left Shoulder Updated: 12/31/21 1601 Bacteria Cult, Aerobe/Anaerobe+Susc No growth to date. Narrative: Bacterial Culture: Placed in Bactec aerobic and Bactec anaerobic bottles Bacteria Cult, Aerobe / Anaerobe+Susc [[id number]] Collected: 12/30/21 1404 Lab Status: Preliminary result Specimen: Shoulder, Left Updated: 12/31/21 1601 Bacteria Cult, Aerobe/Anaerobe+Susc No growth to date. Narrative: Bacterial Culture: Placed in Bactec aerobic and Bactec anaerobic bottles Bacteria Cult, Aerobe / Anaerobe+Susc [[id number]] Collected: 12/30/21 1403 Lab Status: Preliminary result Specimen: Shoulder, Left Updated: 12/31/21 1601 Bacteria Cult, Aerobe/Anaerobe+Susc No growth to date. Narrative: Bacterial Culture: Placed in Bactec aerobic and Bactec anaerobic bottles Bacteria Cult, Aerobe / Anaerobe+Susc [[id number]] Collected: 12/30/21 1403 Lab Status: Preliminary result Specimen: Shoulder, Left Updated: 12/31/21 1601 Bacteria Cult, Aerobe/Anaerobe+Susc No growth to date. Narrative: Bacterial Culture: Placed in Bactec aerobic and Bactec anaerobic bottles SARS Coronavirus 2, Molecular Detection, PCR, Varies Asymptomatic [[id number]] Collected: 12/29/21 1111 Lab Status: Final result [...] ----ADDITIONAL INFORMATION---- This RT-PCR test using the bepretty SARS-CoV-2 Assay ( Chromatin) performed on the bepretty Two Module System has received Emergency Use Authorization (EUA) by the U.S. Food and Drug Administration, and is modified from the chauffeur's instructions with a bridging study. Performance characteristics were verified by [facility] in a manner consistent with CLIA requirements. Visit the CDC website: https://www.cdc.gov/coronavirus/ for the most recent guidelines on Coronavirus testing. Fact Sheet for Healthcare Providers: https://www.fda.gov/media/067557/download Fact Sheet for Patients: https://www.fda.gov/media/816145/download ASSESSMENT / PLAN 56-year-old female with a [...] is consistent with aspiration results from original [facility] evaluation which is likely vaccine customer representative of the culprit organism causing her [...] of Infectious Diseases OPAT monitoring program at [phone] after dismissal. Primary service to follow labs while patient is hospitalized. [place] pharmacist to adjust dosing after dismissal 4. [...] off at this time. Please page Ortho [facility]-ID service pager at [phone] with any questions. ?? Jose Guadalupe Nixon [...] Overall Comments Patient to dismiss with OnQ. RVISOR CELL MAINTENANCE Dario Carrera M.D. - 01/01/2022 7:00 AM [...] - Date/Time Bacteria Cult, Aerobe / Anaerobe+Susc [[id number]] Collected: 12/30/21 1411 Lab Status: In process Specimen: Shoulder, Left Updated: 12/30/21 1540 Narrative: Bacterial Culture: Placed in Bactec aerobic and Bactec anaerobic bottles Bacteria Cult, Aerobe / Anaerobe+Susc [[id number]] Collected: 12/30/21 1405 Lab Status: In process Specimen: Synovial Fluid, Left Shoulder Updated: 12/30/21 1519 Narrative: Bacterial Culture: Placed in Bactec aerobic and Bactec anaerobic bottles Bacteria Cult, Aerobe / Anaerobe+Susc [[id number]] Collected: 12/30/21 1404 Lab Status: In process Specimen: Shoulder, Left Updated: 12/30/21 1536 Narrative: Bacterial Culture: Placed in Bactec aerobic and Bactec anaerobic bottles Bacteria Cult, Aerobe / Anaerobe+Susc [[id number]] Collected: 12/30/21 1403 Lab Status: In process Specimen: Shoulder, Left Updated: 12/30/21 1533 Narrative: Bacterial Culture: Placed in Bactec aerobic and Bactec anaerobic bottles Bacteria Cult, Aerobe / Anaerobe+Susc [[id number]] Collected: 12/30/21 1403 Lab Status: In process Specimen: Shoulder, Left Updated: 12/30/21 1538 Narrative: Bacterial Culture: Placed in Bactec aerobic and Bactec anaerobic bottles SARS Coronavirus 2, Molecular Detection, PCR, Varies Asymptomatic [[id number]] Collected: 12/29/21 1111 Lab Status: Final result [...] ----ADDITIONAL INFORMATION---- This RT-PCR test using the bepretty SARS-CoV-2 Assay ( Appfolio.) performed on the bepretty Two Module System has received Emergency Use Authorization (EUA) by the U.S. Food and Drug Administration, and is modified from the chauffeur's instructions with a bridging study. Performance characteristics were verified by [facility] in a manner consistent with CLIA requirements. Visit the CDC website: https://www.cdc.gov/coronavirus/ for the most recent guidelines on Coronavirus testing. Fact Sheet for Healthcare Providers: https://www.fda.gov/media/345808/download Fact Sheet for Patients: https://www.fda.gov/media/115963/download ASSESSMENT / PLAN IMPRESSION/REPORT/PLAN #1 Status post [...] am, please page Arthur Smallwood at [facility] [phone] RVISOR CELL MAINTENANCE Trey Rdz R.N. - 12/31/2021 7:34 AM [...] with onq pump later today or tomorrow RVISOR CELL MAINTENANCE Jey Matos D.O. - 12/31/2021 6:53 AM [...] - Date/Time Bacteria Cult, Aerobe / Anaerobe+Susc [[id number]] Collected: 12/30/21 1411 Lab Status: In process Specimen: Shoulder, Left Updated: 12/30/21 1540 Narrative: Bacterial Culture: Placed in Bactec aerobic and Bactec anaerobic bottles Bacteria Cult, Aerobe / Anaerobe+Susc [[id number]] Collected: 12/30/21 1405 Lab Status: In process Specimen: Synovial Fluid, Left Shoulder Updated: 12/30/21 1519 Narrative: Bacterial Culture: Placed in Bactec aerobic and Bactec anaerobic bottles Bacteria Cult, Aerobe / Anaerobe+Susc [[id number]] Collected: 12/30/21 1404 Lab Status: In process Specimen: Shoulder, Left Updated: 12/30/21 1536 Narrative: Bacterial Culture: Placed in Bactec aerobic and Bactec anaerobic bottles Bacteria Cult, Aerobe / Anaerobe+Susc [[id number]] Collected: 12/30/21 1403 Lab Status: In process Specimen: Shoulder, Left Updated: 12/30/21 1533 Narrative: Bacterial Culture: Placed in Bactec aerobic and Bactec anaerobic bottles Bacteria Cult, Aerobe / Anaerobe+Susc [[id number]] Collected: 12/30/21 1403 Lab Status: In process Specimen: Shoulder, Left Updated: 12/30/21 1538 Narrative: Bacterial Culture: Placed in Bactec aerobic and Bactec anaerobic bottles SARS Coronavirus 2, Molecular Detection, PCR, Varies Asymptomatic [[id number]] Collected: 12/29/21 1111 Lab Status: Final result [...] ----ADDITIONAL INFORMATION---- This RT-PCR test using the bepretty SARS-CoV-2 Assay ( Chromatin) performed on the bepretty Two Module System has received Emergency Use Authorization (EUA) by the U.S. Food and Drug Administration, and is modified from the chauffeur's instructions with a bridging study. Performance characteristics were verified by [facility] in a manner consistent with CLIA requirements. Visit the CDC website: https://www.cdc.gov/coronavirus/ for the most recent guidelines on Coronavirus testing. Fact Sheet for Healthcare Providers: https://www.fda.gov/media/598299/download Fact Sheet for Patients: https://www.fda.gov/media/476998/download ASSESSMENT / PLAN IMPRESSION/REPORT/PLAN #1 Status post [...] Jey Matos, DO Shoulder & Elbow Fellow [facility] Orthopaedic Surgery For any questions or concerns from 6 am until 6 pm, please page Jam service For urgent matters from 6 pm until 6 am, please page Ortho House at [facility] [phone] Trey Phan R.N. - 12/30/2021 4:39 PM [...] She is registered with the state of [place] for medical cannabis and she gets her meds from a [place] dispensary. She was told to leave her [...] Take 150 mg by mouth every morning. fftauaxkau-gdhqrnvnmclnx-qowb (ESGIC) 50-325-40 mg per tablet Past Week [...] by mouth 2 (two) times a day. RVISOR CELL MAINTENANCE documented in this encounter Procedure Notes Soraida [...] to release the adhesive from the skin. http://seedchange/products/secureportiv RVISOR CELL MAINTENANCE documented in this encounter Consult Notes Ruth [...] (HCC) ??? Nicotine Dependence Unspecified ??? Other Half-Way Current Drug Therapy ??? Direct Infection Of [...] Right Lives With: Alone Receives Help From: steamtable attendant railroad, Family, Friend(s) ADL Assistance: Required assistance ADL Assistance Comments: Gets help from INSURANCE SALES PRODUCER for her bath/shower and for her meals IADL/Homemaking Assistance: Required assistance IADL/Homemaking Assistance Comments: Gets help for housecleaning Driving: Independent Occupational Role: On disability Prior Mobility/Functional Transfers Level of Toutle: Modified independent Gait Devices/Wheelchair Used: Cane Gait [...] session with call light in reach and INSURANCE SALES PRODUCER present, all needs metand questions answered. Contact monitoring: PPE used during therapy: Therapist was wearing the following PPE throughout entire session: surgicalmask and eye protection Patient was wearing a mask during therapy session: yes, when out of room Outcome Measures -[facility] Inpatient Short Form: AM-[facility] Basic Mobility (V.2) How much help from [...] 3-5 steps with a railing?: A Lot -[facility] Basic Mobility (V.2) Raw Score: 17 -[facility] Basic Mobility (V.2) Standardized Score: 39.67 Interpretation: Clinicians answer the -[facility] Inpatient Short Form based on observed patient [...] (min): 36 min Ruth Gonzalez P.T., D.P.T. RVISOR CELL MAINTENANCE Thao You L.I.C.S.Erma, M.S.W. - 12/31/2021 2:04 PM CSTAssociated Order(s): IP CONSULT TO CARE MANAGEMENT; IP CONSULT TO CARE MANAGEMENT; IP CONSULT TO CARE MANAGEMENT Psychosocial Assessment SUBJECTIVE DEMOGRAPHIC INFORMATION Person(s) present during interview: Patient Primary care clinic and provider: [facility] Primary Language: Citizen [place] Legal Information: Legal decision maker for self [...] / Household Status: Patient resides alone in [place], [place]. She lives in a two bedroom apartment. Patient has four adultchildren two of whom live in [place]. Patient son Rafal lives next door to patient. Support Systems: Family members, Friends/neighbors. We have not received permission to contact them. Primary caregiver: Self Accompanied by/Relationship: None Support System: Family members, Friends/neighbors Spirituality / Methodist / Culture: , None History: No Education: High school Employment: Disabled Psychosocial Risk Factors impacting the patient: Resides alone, mental health issues Abuse, Neglect, Maltreatment, Trauma: Current: None reported. Past: None reported. ENVIRONMENTAL SUPPORTS Current Living Situation: Private residence Patient's Home Environment: Resides in a two bedroom apartment on the [address] [facility] Care Facility Name (if applicable): [...] Behavior: Oriented Communication: Reads, writes and speaks Citizen [place] It is anticipated that the patient will need assistance with .Dressing,bathing, meal prep, housekeeping, shopping ASSISTIVE DEVICES Patient has the following equipment: Eyeglasses, Dentures upper, Dentures lower, cane, walker Patient anticipates potentially needing the following additional equipment: None Transportation needs: Independent to drive, support from family and friends SERVICES REQUESTED Infusion therapy USED CAR MAKE READY MECHANIC Formal and Informal Resources: Patient receives home health aid services three times per week and mcc visit one time every two weeks through [facility]. FINANCES/INSURANCE Primary insurance: MEDICARE A AND B Secondary insurance: MEDICA ADVANCE DIRECTIVES Advance Directive: Patient does not have advance directive, does not want information DISCHARGE PLANNING Patient is planning on returning home upon her discharge. She currently receives home health aid services and mcc through [facility]. Patient also has support from a son [...] good support group consisting of family, friends andenon health services through [facility]. INTERVENTIONS ?? Psychosocial assessment ?? Rapport building ?? Education on coping with chronic pain. PLAN ?? Social work will continue to follow for discharge planning and support. ?? Social work did speak with Pat at [facility] to confirm home health services. ?? Social work will work on infusion therapy referrals as well as home health/outpatient picc site care and labs. Anticipated barriers to the transition of care/plan: None Joe Ervin, M.S.W. 12/31/2021 RVISOR CELL MAINTENANCE Jose Guadalupe Nixon M.D. - 12/31/2021 7:31 AM CSTAssociated Order(s): IP CONSULT TO INFECTIOUS DISEASES Infectious Diseases Orthopedic Surgery [facility] Consulting Service Consult Note SUBJECTIVE REASON FOR [...] resistance on OSH AST. She presented to [facility] (unclear if on antibiotics) for further evaluation given persistent L shoulder pain 08/2021 prompting aspiration (09/25/21) which revealed elevated TNC (18414) with 81% PMNs with cultures positive for1 [...] debridement. The patient was subsequently admitted to [facility] for further management. Intraoperative cultures and [...] - Date/Time Bacteria Cult, Aerobe / Anaerobe+Susc [[id number]] Collected: 12/30/21 1411 Lab Status: In process Specimen: Shoulder, Left Updated: 12/30/21 1540 Narrative: Bacterial Culture: Placed in Bactec aerobic and Bactec anaerobic bottles Bacteria Cult, Aerobe / Anaerobe+Susc [[id number]] Collected: 12/30/21 1405 Lab Status: In process Specimen: Synovial Fluid, Left Shoulder Updated: 12/30/21 1519 Narrative: Bacterial Culture: Placed in Bactec aerobic and Bactec anaerobic bottles Bacteria Cult, Aerobe / Anaerobe+Susc [[id number]] Collected: 12/30/21 1404 Lab Status: In process Specimen: Shoulder, Left Updated: 12/30/21 1536 Narrative: Bacterial Culture: Placed in Bactec aerobic and Bactec anaerobic bottles Bacteria Cult, Aerobe / Anaerobe+Susc [[id number]] Collected: 12/30/21 1403 Lab Status: In process Specimen: Shoulder, Left Updated: 12/30/21 1533 Narrative: Bacterial Culture: Placed in Bactec aerobic and Bactec anaerobic bottles Bacteria Cult, Aerobe / Anaerobe+Susc [[id number]] Collected: 12/30/21 1403 Lab Status: In process Specimen: Shoulder, Left Updated: 12/30/21 1538 Narrative: Bacterial Culture: Placed in Bactec aerobic and Bactec anaerobic bottles SARS Coronavirus 2, Molecular Detection, PCR, Varies Asymptomatic [[id number]] Collected: 12/29/21 1111 Lab Status: Final result [...] ----ADDITIONAL INFORMATION---- This RT-PCR test using the bepretty SARS-CoV-2 Assay ( Chromatin) performed on the bepretty Two Module System has received Emergency Use Authorization (EUA) by the U.S. Food and Drug Administration, and is modified from the chauffeur's instructions with a bridging study. Performance characteristics were verified by [facility] in a manner consistent with CLIA requirements. Visit the CDC website: https://www.cdc.gov/coronavirus/ for the most recent guidelines on Coronavirus testing. Fact Sheet for Healthcare Providers: https://www.fda.gov/media/157083/download Fact Sheet for Patients: https://www.fda.gov/media/296053/download ASSESSMENT / PLAN 56-year-old female with a [...] is consistent with aspiration results from original [facility] evaluation which is likely vaccine customer representative of the culprit organism causing her [...] will follow along closely. Please page the [facility]-ID service pager at [phone] with questions. Thank you for the consultation. Jose Guadalupe Nixon M.D. RVISOR CELL MAINTENANCE Associated attestation - Gucci Salvador M.D. - 12/31/2021 6:07 PM SUPERVISOR CELL MAINTENANCE DEMOGRAPHIC INFORMATION Clinic Number:[id number] Patient Name: Angie [...] prescriptions, and Oxycodone. Oxycodone filled here at [facility] pharmacy. Patient going home with an interscalene block OnQ pump. Transportation provided by her son. RVISOR CELL MAINTENANCE Fanny Sifuentes R.N. - 12/31/2021 11:00 PM [...] Nasal mucous membranes remain intact Outcome: Progressing RVISOR CELL MAINTENANCE Ezequiel Hernandez R.N. - 12/30/2021 10:27 PM [...] staff assistance to bathroom. Navin Hernandez R.N. RVISOR CELL MAINTENANCE documented in this encounter OR Notes Op Note - Cyrus Polk M.D. - 12/30/2021 2:50 PM CST STAFF: Cyrus Polk M.D. RESIDENT: Dario Carrera M.D. PRE-OPERATIVE DIAGNOSIS Left infected reverse arthroplasty. POST-OPERATIVE DIAGNOSIS Left infected reverse arthroplasty. A special event assistant was necessary for one or more [...] Cyrus Polk M.D. CT CT Job ID: [id number] RVISOR CELL MAINTENANCE documented in this encounter Miscellaneous Notes Hospital [...] and pain is controlled on oral medications. RVISOR CELL MAINTENANCE documented in this encounter Plan of Treatment Upcoming Encounters Date Type Specialty Care Team Description 09/01/2022 Clinical Communication Admitting/Central Scheduling 09/06/2022 Appointment Radiology Alfredo Herrera O.P.A.-C. [address] [place] [address] 09/06/2022 Office Visit Orthopedic Surgery Cyrus Polk M.D. [address] [place] [address] Scheduled Referrals Name Type Priority Associated Diagnoses Order [facility] Outpatient Referral Routine Direct Infection Of Ordered: Health Referral Left Shoulder In 01/01/20 22 Infectious And Parasitic Diseases Classified Elsewhere (HCC) documented as of this encounter Procedures Procedure Name Priority Date/Time Associated Comments Diagnosis PLACE PERIPHERALLY Routine 01/01/2022 12:11 Resul ts for this INSERTED CENTRAL PM SUPERVISOR CELL MAINTENANCE procedure a re in CATHETER (PICC) the results section. REMOTE OXIMETRY Routine 12/31/2021 5:23 MONITORING CONT. PM SUPERVISOR CELL MAINTENANCE REMOTE OXIMETRY Routine 12/31/2021 5:23 MONITORING CONT. PM [employer]PERVISOR CELL MAINTENANCE BACTERIA / MANDI Routine 12/31/2021 4:04 Result s for this CULTURE, BLOOD PM [employer]INTENANCE procedure are in the results section. BACTERIA / MANDI Routine 12/31/2021 3:52 Result s for this CULTURE, BLOOD PM [employer] MAINTENANCE procedure are in the results section. ADULT OXYGEN THERAPY Routine 12/31/2021 8:01 AM SUPERVISOR CELL MAINTENANCE CBC WITH Routine 12/31/2021 4:25 Results for this DIFFERENTIAL, B AM [employer] MAINTENANCE procedure ar e in the results section. BASIC METABOLIC Routine 12/31/2021 4:25 Results f or this PANEL, S/P AM [employer]OR [employer]LL MAINTENANCE procedure are i n the results section. ADULT OXYGEN THERAPY Routine 12/30/2021 8:01 PM SUPERVISOR CELL MAINTENANCE ADULT OXYGEN THERAPY Routine 12/30/2021 5:12 PM SUPERVISOR CELL MAINTENANCE ADULT OXYGEN THERAPY Routine 12/30/2021 5:12 PM SUPERVISOR CELL MAINTENANCE ADULT OXYGEN THERAPY Routine 12/30/2021 3:46 PM SUPERVISOR CELL MAINTENANCE ADULT OXYGEN THERAPY Routine 12/30/2021 3:46 PM SUPERVISOR CELL MAINTENANCE DX SHOULDER LEFT 1 RAD - Timed (for 12/30/2021 3:41 Re sults for this VIEW specific PM SUPERVISOR [employer]LL MAINTENANCE procedure are i n dates/times) the results section. SURGICAL PATHOLOGY, Routine 12/30/2021 2:15 Shoulder Joint Res ults for this FROZEN LAB PM SUPER[employer]OR [employer]LL MAINTENANCE Disorder Left procedure are in the results section. BACTERIA CULT, Routine 12/30/2021 2:11 Results fo r this AEROBE/ANAEROBE+SUSC PM SUPER[employer]OR [employer]LL MAINTENANCE procedu re are in the results section. BACTERIA CULT, Routine 12/30/2021 2:05 Results fo r this AEROBE/ANAEROBE+SUSC PM SUPER[employer]OR [employer]LL MAINTENANCE procedu re are in the results section. BACTERIA CULT, Routine 12/30/2021 2:04 Results fo r this AEROBE/ANAEROBE+SUSC PM [employer]PER[employer]OR [employer]LL MAINTENANCE procedu re are in the results section. BACTERIA CULT, Routine 12/30/2021 2:03 Results fo r this AEROBE/ANAEROBE+SUSC PM SUPERVISOR [employer]LL MAINTENANCE procedu re are in the results section. BACTERIA CULT, Routine 12/30/2021 2:03 Results fo r this AEROBE/ANAEROBE+SUSC PM [employer]LL MAINTENANCE procedu re are in the results section. ARTHROPLASTY 12/30/2021 12:34 Shoulder Joint RESECTION SHOULDER PM [employer]PER[employer] MAINTENANCE Disorder Left documented in this encounter Results Place peripherally inserted central catheter (PICC) (01/01/2022 12:11 PM SUPERVISOR CELL MAINTENANCE) Narrative [facility] - 01/01/2022 12:11 PM SUPERVISOR CELL MAINTENANCE Soraida Dick R.N. ? 01/01/2022 12:13 PM [...] to release the adhesive from the skin. [email or web address] Dario Carrera M.D. PROCEDURE/MINOR SURGICAL ORD ERABLES Performing Organization Address City/State/ZIP Code Phon e Number MMODAL MMODAL NA Bacteria / Mandi Culture, Blood #2 (12/31/2021 4:04 PM SUPERVISOR CELL MAINTENANCE) [facility] Method Time Signature Bacteria/Valerie No growth 01/05/2022 DTL da Culture, after 5 5:02 PM SUPERVISOR CELL MAINTENANCE Blood days of incubation. Specimen (Source) Anatomical Collection Method Collection Time Re ceived Time Location / / Volume Laterality Blood (Blood, 12/31/2021 4:04 12/31/2021 4:51 Peripheral Draw) PM SUPERVISOR CELL MAINTENANCE PM SUPERVISOR CELL MAINTENANCE Comment: Specimen Source Site: Blood Narrative [facility] - 01/05/2022 5:02 PM SUPERVISOR CELL MAINTENANCE Received Bactec aerobic and Bactec anaer obic bottles Dario Carrera M.D. LAB MICROBIOLOGY - GENERAL O MARY Performing Organization Address City/[facility] Phon e Number [facility] - [address] [place], [place] [address] [place] [id number] [place] [address] Bacteria / Mandi Culture, Blood #1 (12/31/2021 3:52 PM SUPERVISOR CELL MAINTENANCE) [facility] Method [place] Signature Bacteria/Valerie No growth 01/05/2022 DTL da Culture, after 5 5:02 PM SUPERVISOR CELL MAINTENANCE Blood days of incubation. Specimen (Source) Anatomical Collection Method Collection Time Re ceived Time Location / / Volume Laterality Blood (Blood, 12/31/2021 3:52 12/31/2021 4:50 Peripheral Draw) PM SUPERVISOR CELL MAINTENANCE PM SUPERVISOR CELL MAINTENANCE Comment: Specimen Source Site: Blood Narrative [facility] - 01/05/2022 5:02 PM SUPERVISOR CELL MAINTENANCE Received Bactec aerobic and Bactec anaer obic bottles Dario Carrera M.D. LAB MICROBIOLOGY - GENERAL O MARY Performing Organization Address City/[facility]/ZIP Code Phon e Number [facility] - [address] [place], [place] [address] [place] [address] (ABNORMAL) CBC with Differential, Blood (12/31/2021 4:25 AM SUPERVISOR CELL MAINTENANCE) [facility] Method Time Signature Hemoglobin 8.9 (L) 11.6 - 12/31/2021 DTL 15.0 g/dL 5:15 AM SUPER[employer]OR CELL MAINTENANCE Hematocrit 27.3 (L) 35.5 - 12/31/2021 DTL 44.9 % 5:15 AM SUPER[employer]OR CELL MAINTENANCE Erythrocytes 3.26 (L) 3.92 - 12/31/2021 DTL 5.13 5:15 AM SUPERVISOR CELL MAINTENANCE x10(12)/L MCV 83.7 78.2 - 12/31/2021 DTL 97.9 fL 5:15 AM SUPER[employer]OR CELL MAINTENANCE RBC Distrib Width 19.6 (H) 12.2 - 12/31/2021 DTL 16.1 % 5:15 AM SUPERVISOR CELL MAINTENANCE Platelet Count 274 157 - 371 12/31/2021 DTL x10(9)/L 5:15 AM SUPER[employer]OR CELL MAINTENANCE Leukocytes 6.6 3.4 - 9.6 12/31/2021 DTL x10(9)/L 5:15 AM SUPER[employer]OR CELL MAINTENANCE Neutrophils 4.91 1.56 - 12/31/2021 DTL 6.45 5:15 AM SUPERVISOR CELL MAINTENANCE x10(9)/L Lymphocytes 1.10 0.95 - 12/31/2021 DTL 3.07 5:15 AM SUPERVISOR CELL MAINTENANCE x10(9)/L Monocytes 0.61 0.26 - 12/31/2021 DTL 0.81 5:15 AM SUPERVISOR CELL MAINTENANCE x10(9)/L Eosinophils <0.03 0.03 - 12/31/2021 DTL 0.48 5:15 AM SUPERVISOR CELL MAINTENANCE x10(9)/L Basophils <0.03 0.01 - 12/31/2021 DTL 0.08 5:15 AM SUPERVISOR CELL MAINTENANCE x10(9)/L Specimen Anatomical Collection Method Collection Time Receive d Time (Source) Location / / Volume Laterality Blood (Blood, 12/31/2021 4:25 AM 12/31/19 22 5:04 Venous) SUPERVISOR CELL MAINTENANCE AM SUPERVISOR CELL MAINTENANCE Draio Carrera M.D. LAB BLOOD ADD-ON Performing Organization Address City/State/ZIP Code Phon e Number [facility] - [address] [place], [place] [address] [facility] [place] [address] Laboratories-[facility] [address] [facility] (ABNORMAL) Basic Metabolic Panel (12/31/2021 4:25 AM SUPERVISOR CELL MAINTENANCE) P athologist Signature Potassium, S 4.4 3.6 - 5.2 12/31/2021 DTL mmol/L 5:35 AM SUPERVISOR CELL MAINTENANCE Sodium, S 134 (L) 135 - 145 12/31/2021 DTL mmol/L 5:35 AM SUPER[employer]OR CELL MAINTENANCE Chloride, S 103 98 - 107 12/31/2021 DTL mmol/L 5:35 AM SUPER[employer]OR CELL MAINTENANCE Bicarbonate, S 22 22 - 29 12/31/2021 DTL mmol/L 5:35 AM SUPERVISOR CELL MAINTENANCE Anion Gap 9 7 - 15 12/31/2021 DTL 5:35 AM SUPER[employer]OR CELL MAINTENANCE BUN (Blood Urea 21 6 - 21 12/31/2021 DTL Nitrogen), S mg/dL 5:35 AM SUPERVISOR CELL MAINTENANCE Creatinine 0.74 0.59 - 12/31/2021 DTL 1.04 mg/dL 5:35 AM SUPERVISOR CELL MAINTENANCE eGFR-Non 90 >=60 12/31/2021 DTL Black/ mL/min/BSA 5:35 AM SUPERVISOR CELL MAINTENANCE Mong[place]ian Comment: ----ADDITIONAL INFORMATION---- Estimated GFR calculated using the 2009 CKD_EPI creatinine equation. eGFR-Black/ >90 >=60 mL/min/BSA 2021 5:35 AM SUPERVISOR CELL MAINTENANCE DTL Comment: ----ADDITIONAL INFORMATION---- Estimated GFR calculated using the 2009 CKD_EPI creatinine equation. Calcium, Total, S 8.7 8.6 - 10.0 mg/dL 12/31/2021 5:35 AM SUPERVISOR CELL MAINTENANCE DTL Glucose, S 138 70 - 140 mg/dL 12/31/2021 5:35 AM SUPERVISOR CELL MAINTENANCE D TL Specimen Anatomical Collection Method Collection Time Receive d Time (Source) Location / / Volume Laterality Blood (Blood, 12/31/2021 4:25 AM 12/31/19 5:18 Venous) SUPERVISOR CELL MAINTENANCE AM SUPERVISOR CELL MAINTENANCE Dario Carrera M.D. LAB BLOOD ADD-ON Performing Organization Address City/State/ZIP Code Phon e Number [facility] - [address] [place], [place] [address] [facility] [place] [address] [facility] [address] DX Shoulder Left 1 View (12/30/2021 3:41 PM SUPERVISOR CELL MAINTENANCE) Anatomical Region Laterality Modality Upper Extremity, Shoulder, Musculoskeletal RST LOS, Left Computed Radiography Musculoskeletal ARZ LOS, Muskuloskeletal FLA LOS Specimen (Source) Anatomical Collection Method Collection Time Re ceived Time Location / / Volume Laterality 12/30/2021 3:54 PM SUPERVISOR CELL MAINTENANCE Impressions 12/30/2021 3:59 PM SUPERVISOR CELL MAINTENANCE Postoperative changes of a left shoulder arthroplasty resection and placement of an antibiotic spacer. Negat lalo for postoperative purposes. Narrative 12/30/2021 3:59 PM SUPERVISOR CELL MAINTENANCE EXAM: ??DX SHOULDER LEFT 1 VIEW Procedure Note Timothy Resendiz M.D. - 12/30/2021Forma tting of this note might be different from the original. EXAM: DX SHOULDER LEFT 1 VIEW IMPRESSION: Postoperative changes of a left shoulder arthroplasty resection and placement of an antibiotic spacer. Negat lalo for postoperative purposes. Dario Carrera M.D. [facility] Surgical Pathology, Frozen Lab (12/30/2021 2:15 PM SUPERVISOR CELL MAINTENANCE) Component Value Ref Test Analysis Performed At [facility] Method Time Signature 01/01/2022 [facility] 8:22 AM SUPERVISOR CELL MAINTENANCE Participated in Kelly Howard 01/01/2022 [facility] the D.O.-Pathology 8:22 AM SUPER[employer]OR CELL MAINTENANCE Interpretation Resident Report Solomon Marcum M.D. 01/01/2022 [facility] electronically 8:22 AM SUPERVISOR CELL MAINTENANCE signed by I verify that I have examined all relevant slides/materials for the specimen(s) and rendered or confirmed the diagnosis. Frozen A. ??Synovium, left shoulder, excision: ??Synovial tissue 01/01/2022 [facility] Intraoperative with 8:22 AM SUPERVISOR CELL MAINTENANCE Report acute inflammation (>5 neutrophils/high power field). Signed by Solomon Marcum M.D. 12/31/2021 8:17 AM Gross Description A. ??Received fresh labeled left shoulder is a 1.4 x 0.9 x 01/01/2022 [facility] 0.4 cm aggregate of red and campbell fibrous tissue, which is 8:22 AM SUPERVISOR CELL MAINTENANCE soft. ??All submitted for frozen and permanent sections. Grossed by Nikki Gallardo. Block Summary A Left shoulder 01/01/2022 [facility] A1 Left shoulder-frozen 8:22 AM SUPERVISOR CELL MAINTENANCE Interpretation FINAL DIAGNOSIS 01/01/2022 [facility] 8:22 AM SUPERVISOR CELL MAINTENANCE A. ??Synovium, left shoulder, excision: ??Synovial tissue with acute inflammation (>5 neutrophils/high power field). Specimen (Source) Anatomical Collection Method Collection Time Re ceived Time Location / / Volume Laterality Tissue (Shoulder, 12/30/2021 2:15 PM Left) SUPER[employer]OR [employer]LL MAINTENANCE Narrative This result has an attachment that is no t available. Cyrus Polk M.D. LAB SURG PATH ORDERABLES Performing Organization Address [facility] Phon e Number [facility] - [address] [place], [place] [address] [facility] [place] [place] [address] [facility] [address] [facility] Bacteria Cult, Aerobe / Anaerobe+Susc (12/30/2021 2:11 PM SUPERVISOR CELL MAINTENANCE) [facility]spaces Method Time Signature Bacteria Cult, No growth 01/13/2022 DTL Aerobe/Anaerob after 14 4:02 PM SUPERVISOR CELL MAINTENANCE e+Susc days of incubation. Specimen Anatomical Collection Method Collection Time Receive d Time (Source) Location / / Volume Laterality Shoulder, Left 12/30/2021 2:11 PM 022 3:38 SUPERVISOR CELL MAINTENANCE PM SUPERVISOR CELL MAINTENANCE Comment: Specimen Source Site: Tissue #[address] [facility] - 01/13/2022 4:02 PM SUPERVISOR CELL MAINTENANCE Bacterial Culture: Placed in Bactec aero bic and Bactec anaerobic bottles Cyrus Polk M.D. LAB MICROBIOLOGY - GENERAL O RDERABLES Performing Organization Address City/[facility] Code Phon e Number [facility] - [address] [place], [place] [address] [facility] [place] [address] [facility] [address] [facility] (ABNORMAL) Bacteria Cult, Aerobe / Anaerobe+Susc (12/30/2021 2:05 PM SUPERVISOR CELL MAINTENANCE) Component Value Ref Test Analysis Performed At [facility] Backspaces Range Method Time Signature Bacteria STAPHYLOCOCCUS EPIDERMIDIS 01/11/2022 DT L Cult, Growth after 4 days 7:55 AM SUPERVISOR CELL MAINTENANCE Aerobe/Anaero (A) be+Susc Comment: Semi-Urgent Result. Semi-Urgent This is a semi-urgent result [facility] - () [facility] Specimen Anatomical Collection Method Collection Time Receive d Time (Source) Location / / Volume Laterality Synovial Fluid, 12/30/2021 2:05 PM 2021 3:17 Left Shoulder SUPERVISOR CELL MAINTENANCE PM SUPERVISOR CELL MAINTENANCE Comment: Specimen Source Site: Fluid Narrative [facility] - 01/11/2022 7:55 AM SUPERVISOR CELL MAINTENANCE Bacterial Culture: Placed in Bactec aero bic and Bactec anaerobic bottles Organism Antibiotic Method Susceptibility Staphylococcus epidermidis Oxacillin SUSCEPTIBILITY, SANDRA < =0.06 mcg/mL: Susceptible (MCG/ML) Comment: Use oxacillin interpretation to predict results for anti-staphylococcal beta-lac chen antibiotics (except ceftaroline). Staphylococcus Vancomycin SUSCEPTIBILITY, SANDRA 2 mcg/mL: Ortiz sceptible epidermidis (MCG/ML) Staphylococcus Clindamycin SUSCEPTIBILITY, SANDRA >2 mcg/mL: R esistant epidermidis (MCG/ML) Staphylococcus Levofloxacin SUSCEPTIBILITY, ASNDRA >4 mcg/mL: R esistant epidermidis (MCG/ML) Comment: [...] Address City/State/ZIP Code Phon e Number [facility] - [address] [place] [address] [place] [address] Laboratories-[address] Bacteria Cult, Aerobe / Anaerobe+Susc (12/30/2021 2:04 PM SUPERVISOR CELL MAINTENANCE) [facility] Method Time Signature Bacteria Cult, No growth 01/13/2022 [facility] Aerobe/Anaerob after 14 4:02 PM SUPERVISOR CELL MAINTENANCE e+Susc days of incubation. Specimen Anatomical Collection Method Collection Time Receive d Time (Source) Location / / Volume Laterality Shoulder, Left 12/30/2021 2:04 PM 022 3:34 SUPERVISOR CELL MAINTENANCE PM SUPERVISOR CELL MAINTENANCE Comment: Specimen Source Site: Tissue #3 Narrative [facility] - [facility] - 01/13/2022 4:02 PM SUPERVISOR CELL MAINTENANCE Bacterial Culture: Placed in Bactec aero bic and Bactec anaerobic bottles Cyrus Polk M.D. LAB MICROBIOLOGY - GENERAL O RDERABLES Performing Organization Address City/[facility] Phon e Number [facility] - [address] [place], [place] [address] [facility] [place] [place] [address] [facility] [address] [facility] Bacteria Cult, Aerobe / Anaerobe+Susc (12/30/2021 2:03 PM SUPERVISOR CELL MAINTENANCE) [facility] Method Time Signature Bacteria Cult, No growth 01/13/2022 DTL Aerobe/Anaerob after 14 4:02 PM SUPERVISOR CELL MAINTENANCE e+Susc days of incubation. Specimen Anatomical Collection Method Collection Time Receive d Time (Source) Location / / Volume Laterality Shoulder, Left 12/30/2021 2:03 PM 022 3:37 SUPERVISOR CELL MAINTENANCE PM SUPERVISOR CELL MAINTENANCE Comment: Specimen Source Site: Tissue #[address] [facility] - 01/13/2022 4:02 PM SUPERVISOR CELL MAINTENANCE Bacterial Culture: Placed in Bactec aero bic and Bactec anaerobic bottles Cyrus Polk M.D. LAB MICROBIOLOGY - GENERAL O MARY Performing Organization Address City/[facility] Code Phon e Number [facility] - [address] [place], [place] [address] [place], [place] [id number] [place] [address] [address] [facility] Bacteria Cult, Aerobe / Anaerobe+Susc (12/30/2021 2:03 PM SUPERVISOR CELL MAINTENANCE) [facility] Method Time Signature Bacteria Cult, No growth 01/13/2022 DTL Aerobe/Anaerob after 14 4:02 PM SUPERVISOR CELL MAINTENANCE e+Susc days of incubation. Specimen Anatomical Collection Method Collection Time Receive d Time (Source) Location / / Volume Laterality Shoulder, Left 12/30/2021 2:03 PM 022 3:31 SUPERVISOR CELL MAINTENANCE PM SUPERVISOR CELL MAINTENANCE Comment: Specimen Source Site: Tissue #1 Narrative [facility] - 01/13/2022 4:02 PM SUPERVISOR CELL MAINTENANCE Bacterial Culture: Placed in Bactec aero bic and Bactec anaerobic bottles Cyrus W Jam M.D. LAB MICROBIOLOGY - GENERAL O RDERABLES Performing Organization Address City/State/ZIP Code Phon e Number [facility] - [address] [place], [place] [address] [facility] [place] [address] [facility] [address] documented in this [...] tablet 1,000 mg Given 01/01/2022 11:36 AM SUPERVISOR CELL MAINTENANCE 1,00 0 mg (TYLENOL) 1,000 mg, oral, Every 6 hours, First dose on Tue12/30/21 at 1800 Given 01/01/2022 6:28 AM SUPERVISOR CELL MAINTENANCE 1,000 mg Given 12/31/2021 11:51 PM SUPERVISOR CELL MAINTENANCE 1,000 mg albuterol nebulizer solution 2.5 mg Given 12/31/2021 4:44 PM SUPERVISOR CELL MAINTENANCE 2.5 mg 2.5 mg, nebulization, Every 6 hours PRN, wheezing, Starting on Tue12/30/21 at 1711, Albuterol nebs were interchanged for albuterol/levalbuterol MDI (same frequency) atorvastatin tablet 80 mg (LIPITOR) Given 12/31/2021 8:57 PM SUPERVISOR CELL MAINTENANCE 80 mg 80 mg, oral, Daily at bedtime, First dose on Tue12/30/21 at 2100 Given 12/30/2021 9:55 PM SUPERVISOR CELL MAINTENANCE 80 mg benzonatate capsule 100 mg (TESSALON PER LES) Given 01/01/2022 3:10 AM SUPERVISOR CELL MAINTENANCE 100 mg 100 mg, oral, 3 times daily PRN, cough, Starting on Tue12/31/21 at 1702, Swallow whole. Do NOT crush, chew or open capsule. Given 12/31/2021 5:39 PM SUPERVISOR CELL MAINTENANCE 100 mg bupivacaine PF 0.2 % 550 mL in NaCl New Bag 01/01/2022 3:15 PM SUPERVISOR CELL MAINTENANCE 6 mL/hr 6 mL/hr 0.9% On-Q pain pump (CB004) 6 mL/hr, nerve catheter, Continuous, Starting on Tue01/01/22 at 1500, PACU & Post-Op, Location: Nerve Catheter Location, Nerve Catheter Location: Interscalene, Device: On-Q Pump bupivacaine PF 0.2 % in Rate/Dose Verify 01/01/2022 1:00 AM SUPERVISOR CELL MAINTENANCE 6 mL/ hr 6 mL/hr NaCl 0.9% 341 mL infusion (MARCAINE) 6 mL/hr, nerve catheter, Continuous, Starting on Tue12/30/21 at 1600, PACU & Post-Op, Nerve Catheter Location: Interscalene, Device: Hospital Infusion Pump Rate/Dose Verify 12/31/2021 12:11 AM SUPERVISOR CELL MAINTENANCE 6 mL/hr 6 mL/hr New Bag 12/30/2021 3:49 PM SUPERVISOR CELL MAINTENANCE 6 mL/hr 6 mL/hr buPROPion XL 24 hr tablet 150 mg (WELLBUTRIN Given 02/2022 8:35 AM SUPERVISOR CELL MAINTENANCE 150 mg XL) 150 mg, oral, Every morning, First dose on Clementine 12/31/21 at 0900, Swallow whole. Do NOT crush, chew, or split tablet. Given 12/31/2021 8:16 AM SUPERVISOR CELL MAINTENANCE 150 mg calcium carbonate chewable tablet Given 12/31/2021 11: 46 PM SUPERVISOR CELL MAINTENANCE 400 mg of calcium 400 mg of calcium (TUMS) 400 mg of calcium, oral, Every 2 hour PRN, indigestion, Starting on Tue12/30/21 at 1711, Doses listed are in mg of elemental calcium. Take with food. 500 mg calcium carbonate contains 200 mg of elemental calcium. Given 12/31/2021 9:15 PM SUPERVISOR CELL MAINTENANCE 400 mg of calcium carboxymethylcellulose 0.5 % ophthalmic Given 01/01/2022 1:15 AM SUPERVISOR CELL MAINTENANCE 2 drops solution 2 drop (REFRESH PLUS) 2 drop, both eyes, 4 times daily PRN, dry eyes, Starting on Tue12/30/21 at 1711 Given 12/31/2021 12:31 PM SUPERVISOR CELL MAINTENANCE 2 drops Given 12/31/2021 12:23 AM SUPERVISOR CELL MAINTENANCE 2 drops cefTRIAXone in dextrose (iso-osm) IVPB New Bag 01/01/2022 2:38 PM SUPERVISOR CELL MAINTENANCE 2 g 200 mL/hr 2 g (ROCEPHIN) 2 g, intravenous, at 200 mL/hr, Administer over 15 Minutes, Daily before lunch, First dose on Tue01/01/22 at 1345, Drug Monitoring Program: Pharmacist to adjust medication dosing based on indication and drug clearance factors., Indications: Bone and/or joint infection cetirizine tablet 10 mg (ZyrTEC) Given 01/01/2022 8:35 AM SUPERVISOR CELL MAINTENANCE 10 mg 10 mg, oral, 2 times daily, First dose on Tue12/30/21 at 2100, Drug Monitoring Program: Pharmacist to adjust medication dosing based on indication and drug clearance factors. Given 12/31/2021 8:57 PM SUPERVISOR CELL MAINTENANCE 10 mg Given 12/31/2021 8:16 AM SUPERVISOR CELL MAINTENANCE 10 mg cholecalciferol (vitamin D3) tablet 25 m cg Given 01/01/2022 8:35 AM SUPERVISOR CELL MAINTENANCE 25 mcg 25 mcg, oral, Daily, First dose on Tue12/31/21 at 0900, cholecalciferol (vitamin D3) orderable was interchanged for cholecalciferol (vitamin D3) tablet/capsule Given 12/31/2021 8:16 AM SUPERVISOR CELL MAINTENANCE 25 mcg D5W infusion 10-250 mL/hr, intravenous, [...] 5 mg (VALIUM) Given 12/31/2021 12:31 PM SUPERVISOR CELL MAINTENANCE 5 mg 5 mg, oral, 4 times daily PRN, muscle spasms, Starting on Tue12/30/21 at 2243 Given 12/31/2021 1:59 AM SUPERVISOR CELL MAINTENANCE 5 mg diphenhydrAMINE capsule 25 mg (BENADRYL) 25 mg, oral, Daily PRN, itching, Starting on Tue 2 at 0854 diphenhydrAMINE capsule 75 mg (BENADRYL) Given 01/01/2022 8:49 AM SUPERVISOR CELL MAINTENANCE 75 mg 75 mg, oral, Bedtime PRN, sleep, Starting on Tue12/30/21 at 1715 FLUoxetine capsule 80 mg (PROzac) Given 01/01/2022 8:34 AM SUPERVISOR CELL MAINTENANCE 80 mg 80 mg, oral, Daily, First dose on Tue12/31/21 at 0900, FLUoxetine orderable was interchanged for FLUoxetine tablet/capsule Given 12/31/2021 8:16 AM SUPERVISOR CELL MAINTENANCE 80 mg fluticasone furoate 100 mcg/actuation Given 01/01/2022 8:[address] 2 puffs inhaler 2 puff (ARNUITY ELLIPTA) 2 puff, inhalation, 2 times daily, First dose on Tue12/30/21 at 2100, fluticasone furoate 100 mcg was interchanged for fluticasone MDI 110 mcg Given 12/31/2021 9:04 PM SUPERVISOR CELL MAINTENANCE 2 puffs Given 12/31/2021 8:17 AM SUPERVISOR CELL MAINTENANCE 2 puffs gentamicin powder (for bone Given 12/30/2021 2:40 PM SUPERVISOR CELL MAINTENANCE 4 vials Left Shoulder cement) As needed, Starting on Tue12/30/21 at 1440, Intra-Op heparin PF flush syringe 50-150 Units 50-150 Units, intravenous, Once as neede d, line care, 50 units (5 mL) to each lumen of non-valved catheters only, Starting on Tue01/01/22 a t 0817, For 1 dose HYDROmorphone (PF) injection 0.4 mg Given 01/01/2022 4:56 AM SUPERVISOR CELL MAINTENANCE 0.4 mg (DILAUDID) 0.4 mg, intravenous, Every 2 hour PRN, severe pain or score 7-10 of 10, Starting on Tue12/30/21 at 1711, For 5 doses, May administer if pain is greater than 7 after scheduled and PRN regimen exhausted. If pain remains greater than 7, notify primary service. Given 12/31/2021 11:35 AM SUPERVISOR CELL MAINTENANCE 0.4 mg Given 12/31/2021 4:14 AM SUPERVISOR CELL MAINTENANCE 0.4 mg ipratropium-albuteroL 0.5-2.5 mg/3 mL nebulizer Given 01/01/2022 3:15 AM SUPERVISOR CELL MAINTENANCE 3 mL solution 3 mL (DUONEB) 3 mL, nebulization, 4 times daily PRN, shortness of breath, wheezing, Starting on Tue12/30/21 at 1711 lactated ringers Rate/Dose Change 01/01/2022 1:00 AM SUPERVISOR CELL MAINTENANCE 20 mL/hr 20 mL/hr 75 mL/hr, intravenous, Continuous, Starting on Tue12/30/21 at 1715, Until patient has 500cc po intake New Bag 12/31/2021 11:46 PM SUPERVISOR CELL MAINTENANCE 75 mL/hr 75 mL/hr Rate/Dose Change 12/31/2021 3:55 AM SUPERVISOR CELL MAINTENANCE 20 mL/hr 20 mL/hr lactated ringers Continued from OR 12/30/2021 4:00 PM SUPERVISOR CELL MAINTENANCE 75 mL/hr 75 mL/hr 75 mL/hr, intravenous, Continuous, Starting on Tue12/30/21 at 1600, PACU & Post-Op lamoTRIgine tablet 200 mg (LaMICtaL) Given 01/01/2022 8:34 AM SUPERVISOR CELL MAINTENANCE 200 mg 200 mg, oral, 2 times daily, First dose on Tue12/30/21 at 2100 Given 12/31/2021 8:56 PM SUPERVISOR CELL MAINTENANCE 200 mg Given 12/31/2021 8:16 AM SUPERVISOR CELL MAINTENANCE 200 mg methylene blue 0.5 % (5 mg/mL) Given 12/30/2021 2:39 PM SUPERVISOR CELL MAINTENANCE 2 mL Left Shoulder injection As needed, [...] 10 mg (ROXICODONE) Given 01/01/2022 2:38 PM SUPERVISOR CELL MAINTENANCE 10 mg 10 mg, oral, Every 3 hours PRN, severe pain or score 7-10 of 10, Starting on Clementine 12/31/21 at 1745 Given 01/01/2022 11:35 AM SUPERVISOR CELL MAINTENANCE 10 mg Given 01/01/2022 7:07 AM SUPERVISOR CELL MAINTENANCE 10 mg oxyCODONE IR tablet 5 mg (ROXICODONE) 5 mg, oral, Every 3 hours PRN, moderate pain or score 4-6 of 10, Starting on Clementine 12/31/21 at 1745, If patient is >75 consider changing to 2.5-5mg scale pantoprazole DR tablet 40 mg (PROTONIX) Given 01/01/2022 3:46 PM SUPERVISOR CELL MAINTENANCE 40 mg 40 mg, oral, 2 times daily before breakfast and dinner, First dose on Tue12/31/21 at 0700, pantoprazole 40 mg oral twice daily was interchanged for esomeprazole 20 or 40 mg oral twice daily Swallow whole. Do NOT crush, chew, or split tablet. Given 01/01/2022 6:29 AM SUPERVISOR CELL MAINTENANCE 40 mg Given 12/31/2021 4:47 PM SUPERVISOR CELL MAINTENANCE 40 mg pregabalin capsule 600 mg (LYRICA) Given 01/01/2022 8:34 AM SUPERVISOR CELL MAINTENANCE 600 mg 600 mg, oral, 2 times daily, First dose on Tue12/30/21 at 2100 Given 12/31/2021 8:56 PM SUPERVISOR CELL MAINTENANCE 600 mg Given 12/31/2021 8:15 AM SUPERVISOR CELL MAINTENANCE 600 mg QUEtiapine tablet 50 mg (SEROquel) Given 12/31/2021 8:57 PM SUPERVISOR CELL MAINTENANCE 50 mg 50 mg, oral, Daily at bedtime, First dose on Tue12/30/21 at 2100 Given 12/30/2021 9:55 PM SUPERVISOR CELL MAINTENANCE 50 mg sennosides-docusate sodium 8.6-50 mg per Given 01/01/2022 8:35 A M SUPERVISOR CELL MAINTENANCE 1 tablet tablet 1 tablet (SENOKOT-S) 1 tablet, oral, 2 times daily, First dose on Tue12/30/21 at 2100, Do not give if patient has diarrhea. Given 12/31/2021 8:57 PM SUPERVISOR CELL MAINTENANCE 1 tablet Given 12/31/2021 8:16 AM SUPERVISOR CELL MAINTENANCE 1 tablet sodium chloride 0.9 % injection [...] injection 3 mL Given 12/31/2021 8:18 AM SUPERVISOR CELL MAINTENANCE 3 mL 3 mL, intravenous, Every 12 hours scheduled, First dose on Tue12/30/21 at 2100, PACU & Post-Op, Peripheral Intravenous Catheter and Rapid Infusion Catheter, when no infusion to maintain patency Given 12/30/2021 9:53 PM SUPERVISOR CELL MAINTENANCE 3 mL vancomycin powder Given 12/30/2021 2:40 PM SUPERVISOR CELL MAINTENANCE 4 g Left Shoulder As needed, Starting on Tue12/30/21 at 1440, Intra-Op zonisamide capsule 300 mg (ZONEGRAN) Given 01/01/2022 8:35 AM SUPERVISOR CELL MAINTENANCE 300 mg 300 mg, oral, 2 times daily, First dose on Tue12/30/21 at 2100, Swallow whole. Do NOT crush, chew or open capsule. Given 12/31/2021 8:57 PM SUPERVISOR CELL MAINTENANCE 300 mg Given 12/31/2021 8:16 AM SUPERVISOR CELL MAINTENANCE 300 mg documented in this encounter Active and Recently Administered Medications Times are shown in SUPERVISOR CELL MAINTENANCE. Scheduled Medication Order 12/30/2021 12/31/2021 01/01/2022 acetaminophen tablet 1,000 mg (TYLENOL) (COMPLETED) 12 (Given - Provider: Manda Barnett RBrittonNBritton) 1,000 mg, oral, Once, On Tue12/30/21 at 1215, For 1 dose, Pre-Op acetaminophen tablet 1,000 mg (TYLENOL) 1828 (Given - Provider: Ezequiel Hernandez RRebekah.) 0007 (Given - Provider: Viktoriya Givens RBrittonN.)0619 (Given - Provider: Viktoriya Givens RBrittonN.)1135 (Given - Provider: Maci Gonzalez R.N.)1738 (Given - Provider: Fanny Sifuentes RBrittonN.)2351 (Given - Provider: Leticia Pérez, R.N.) 0628 (Given - Provider: Viktoriya Givens R.N.)1136 (Given - Provider: Corrie Toscano RBrittonNBritton) 1,000 mg, oral, Every 6 hours, First dose on Tue12/30/21 at 1800 atorvastatin tablet 80 mg (LIPITOR) 2155 (Given - Prov ider: Sharifa GarciaNBritton) 2056 (Given - Provider: Fanny Sifuentes RBrittonN.) 80 mg, oral, Daily at bedtime, First [...] 1419 (Given - Provider: Emre Rodriguez APRN, [facility]) 2,000 mg (rounded from 1,747.5 mg = [...] 25 mcg, oral, Daily, First dose on Clementine at 0900, cholecalciferol (vitamin D3) orderable was interchanged for cholecalciferol (vitamin D3) tablet/capsule FLUoxetine capsule 80 mg (PROzac) 08 ( Given - Provider: Maci Gonzalez R.N.) 0834 (Given - Provider: Corrie fall R.N.) 80 mg, oral, Daily, First dose on Clementine02/16 at 0900, FLUoxetine orderable was interchanged for [...] R.N.) 0834 (Given - Provider: Corrie fall RBrittonNBritton) 600 [...] R.N.) 0835 (Given - Provider: Corrie Toscano R.N.) 1 [...] >500cc)2346 (New Bag - Provider: Leticia Pérez, R.NBritton) 0100 (Rate/Dose Change - Provider: Kem Givens [...] R.N.) 0310 (Given - Provider: Viktoriya Givens RBetsy) 100 mg, oral, 3 times daily [...] Provider: Fanny Sifuentes R.N.)234 (Given - Provider: Leticia Pérez, R.N.) 400 mg of calcium, oral, Every 2 hour NJ N, indigestion, Starting on Tue12/30/21 at 1711, Doses listed are in mg of elemental calcium. Take with food. 500 mg calcium carbonate contains 200 mg of elemental calcium. carboxymethylcellulose 0.5 % ophthalmic solution 2 drop (REF RESH PLUS) 0023 (Given - Provider: Viktoriya Givens RBrittonN.)1231 (Given - Provider: Maci Gonzalez R.N.) 0115 [...] powder (for bone cement) (CANCELED) 1440 (G sheltonen - Provider: Cyrus Polk M.D.) As needed, [...] (CANCELED) 1631 (Given - Provider: Conchita Carmen RBetsy) 1 mg, intravenous, Every 6 hours PRN, [...] Provider: Conchita Carmen R.N.)1617 (Given - Provider: Christiano Darling.NBritton) 0.2 mg, intravenous, Every 5 min PRN, mo derate pain or score 4-6 of 10, severe pain or score 7-10 of 10, Starting on Tue12/30/21 at 1546, PACU (only), Up to maximum total dose of 2 mg HYDROmorphone (PF) injection 0.4 mg (DILAUDID) 0159 (Given - Provider: Viktoriya Givens RRebekah.)0414 (Given - Provider: Viktoriya Givens R.N.)1135 (Given - Provider: Maci Gonzalez RBrittonNBritton) 0456 (Given - Provider: Viktoriya Givens RBrittonNBritton) 0.4 mg, intravenous, Every 2 hour PRN, [...] Sifuentes R.N.)2053 (Given - Provider: Fanny Sifuentes R.N.)2351 (Given - Provider: Rafal Waller, M.S.N., R.N.) 0303 (Given - Provider: Viktoriya Givens R.N.)0707 (Given - Provider: Viktoriya Givens R.N.)1135 (Given - Provider: Sharifa CanasNBritton)1438 (Given - Provider: Corrie Toscano R.N.) 10 mg, oral, Every 3 hours PRN, severe p ain or score 7-10 of 10, Starting on Tue12/31/21 at 1745 oxyCODONE IR tablet 5 mg (ROXICODONE)(Linked Group 1) 1739 (See Alternative - Provider: Fanny Sifuentes R.N.)2053 (See Alternative - Provider: Fanny Sifuentes R.N.)2351 (See Alternative - Provider: Carole Pérez.S.N., R.N.) 0303 (See Alternative - Provider: Viktoriya [...] over 3 days 1 patch (TRANSDERM S FOOD VENDOR) (CANCELED) 1202 (Medication Applied - Provider: Manda Barnett RBrittonN.) 0110 (Medication Removed - Provider: Leticia Pérez, [...] documented as of this encounter Care Teams Undraped Artist Model Relationship Specialty Start Date End Date Elsewhere, Pcp PCP - General Family Medicine 12/25/21 documented as of this encounter
--- OUTSIDE RECORDS SUMMARY | 2022-08-14 17:50 | XMS_ITS | Encounter Summary ---
:[address] [facility] Address [address] [place] [address] Care Team Providers Name Role Phone Elsewhere, Pcp Primary Care Provider Unavailable Encounter Details Date Type Department Care Team Description 12/30/2021 Anesthesia Event RST SEBAS MORAN OR Clifford Young M.D. [address] [place] [address] [phone] [address] [facility] Collin Fernández M.D. [address] [place] [phone] [place] [phone] Anesthesia Record Procedure Summary [...] h andoff to the receiving staff during central hospital ch we 1. Identified the patient [...] Ayakalashell Andreyscout howard T, (created via procedure FORM RAISER, LEAF TINNER FORM RAISER, CRN A documentation); Mask Ventilation: Easy mask; [...] or the highest technical, or vocational p legacy health degree you have received? Sex Assigned at Date Recorded Female 03/01/2019 10:12 AM CDT documented as of this encounter OR Notes Anesthesia Postprocedure Evaluation - Clifford Young M.D. - 12/30/2021 3:55 PM CST Patient: Angie Mosquera Procedure Summary Date: 12/30/21 Room / Location: [address] / [facility] in [place], [place] Anesthesia Start: 1250 Anesthesia Stop: 1550 [...] Post Op nausea/vomiting: none Hydration status: euvolemic NG DESIGNER Anesthesia Procedure Notes - Emre Rodriguez APRN, CRNA - 12/30/2021 2:29 PM PIPING DESIGNER Associated Order(s): Airway Airway Date/Time: 12/30/2021 1:02 [...] successful Airway event: no complications ATTESTATION STATEMENT NG DESIGNER Anesthesia Preprocedure Evaluation - Clifford Young M.D. - 12/30/2021 1:23 PM CST Preprocedure Anesthesia & H&P Assessment Procedure Summary Anesthesia Start Date/Time: 12/30/21 1250 Procedure: ARTHROPLASTY RESECTION SHOULDER. 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 Location: [address] / [facility] in [place], [place] Providers: Cyrus Polk M.D. Pertinent components [...] with patient /legal guardian or through an repairer veneer sheet. Risks/Benefits/Alternatives of Blood transfusion discussed with patient / legal guardian, including an opportunity to ask questions and/or decline some or all transfusion therapies. The patient / legalguardian consented to the use of all blood products, as deemed medically necessary Approval to Proceed: approved for anesthesia NG DESIGNER Anesthesia Procedure Notes - Clifford Khanna M.D. - 12/30/2021 12:56 PM PIPING DESIGNER Associated Order(s): Regional Block Regional Block Date/Time: [...] successful procedure Other complications: none ATTESTATION STATEMENT NG DESIGNER documented in this encounter Plan of Treatment Upcoming Encounters Date Type Specialty Care Team Description 09/01/2022 Clinical Communication Admitting/Central Scheduling 09/06/2022 Appointment Radiology Alfredo Herrera O.P.A.-C. [address] [place] [address] 09/06/2022 Office Visit Orthopedic Surgery Cyrus Polk M.D. [address] [place] [address] documented as of this encounter Procedures Procedure Name Priority Date/Time Associated Comments Diagnosis LDA ANE ENDOTRACHEAL Routine 12/30/2021 1:02 PM R esults for this AIRWAY PIPING DESIGNER procedure are i n the results section. MC ANE NERVE BLOCK Routine 12/30/2021 12:56 Resul ts for this WITH ULTRASOUND PM PIPING DESIGNER procedure ar e in the results section. LDA ANE UPPER Routine 12/30/2021 12:56 Results fo r this EXTREMITY PNC PM PIPING DESIGNER procedure are in the results section. WA US GUIDE PLC NDL Routine 12/30/2021 12:56 Resu lts for this PM PIPING DESIGNER procedure are i n the results section. WA INJ ANES BRACHIAL Routine 12/30/2021 12:56 Res ults for this PLEXUS CONT PM PIPING DESIGNER procedure are i n the results section. documented in this encounter Results LDA ANE ENDOTRACHEAL AIRWAY (12/30/2021 1:02 PM PIPING DESIGNER) Narrative Emre Rodriguez APRN, CRNA - 12/30/2021 1:02 PM PIPING DESIGNER Emre Rodriguez APRN, CRNA ? 12/30/2021 ??2:30 [...] ATTESTATION STATEMENT Clifford Young M.D. ANESTHESIA ORDERABLES WA INJ ANES BRACHIAL PLEXUS CONT, WA US GUIDE PLC NDL, LDA ANE UPPER EXTREMITY PNC, MC ANE NERVE BLOCK WITH ULTRASOUND (12/30/2021 12:56 PM PIPING DESIGNER) Narrative Clifford Khanna M.D. - 12/30/2021 12:56 P M PIPING DESIGNER Clifford Khanna M.D. ? 12/30/2021 12:57 PM [...] 5 % injection Given 12/30/2021 1:52 PM PIPING DESIGNER 250 mL intravenous, As needed, Starting on Tue12/30/21 at 1352, Anesthesia Intra-op bupivacaine PF 0.5 % (5 mg/mL) injection Given 12/30/2021 12:45 PM PIPING DESIGNER 10 mL (MARCAINE) intrathecal, As needed, Starting on Tue12/30/21 at 1245, Anesthesia Intra-op ceFAZolin injection 2,000 mg (ANCEF) Given 12/30/2021 2:19 PM PIPING DESIGNER 2 g 2,000 mg (rounded from 1,747.5 [...] dexAMETHasone injection (DECADRON) Given 12/30/2021 1:09 PM PIPING DESIGNER 8 mg intravenous, As needed, Starting on Tue12/30/21 at 1309, Anesthesia Intra-op diphenhydrAMINE injection (BENADRYL) Given 12/30/2021 1:32 PM PIPING DESIGNER 12.5 mg intravenous, As needed, Starting on Tue12/30/21 at 1332, Anesthesia Intra-op ePHEDrine (PF) injection Given 12/30/2021 1:58 PM PIPING DESIGNER 10 mg intravenous, As needed, Starting on Tue12/30/21 at 1346, Anesthesia Intra-op Given 12/30/2021 1:46 PM PIPING DESIGNER 5 mg Given 12/30/2021 1:24 PM PIPING DESIGNER 10 mg fentaNYL injection (SUBLIMAZE) Given 12/30/2021 3:12 PM PIPING DESIGNER 50 mcg intravenous, As needed, Starting on Tue12/30/21 at 1512, Anesthesia Intra-op ketamine injection (KETALAR) Given 12/30/2021 2:43 PM PIPING DESIGNER 20 mg intravenous, As needed, Starting on Tue12/30/21 at 1443, Anesthesia Intra-op lactated ringers New Bag 12/30/2021 12:53 PM PIPING DESIGNER intravenous, Continuous Infusion: Per Instructions PRN, Starting on Tue12/30/21 at 1253, Anesthesia Intra-op ondansetron (PF) injection (ZOFRAN) Given 12/30/2021 3:00 PM PIPING DESIGNER 4 mg intravenous, As needed, Starting on Tue12/30/21 at 1500, Anesthesia Intra-op phenylephrine 80 mcg/mL in Rate/Dose 12/30/2021 3:00 0.4 mcg/kg/min 20.97 NaCl 0.9% 250 mL infusion Change PM PIPING DESIGNER mL/hr intravenous, Continuous Infusion: Per Instructions PRN, Starting on Tue12/30/21 at 1404, Anesthesia Intra-op Rate/Dose Change 12/30/2021 2:36 PM PIPING DESIGNER 0.3 mcg/kg/min 15.728 mL/hr Rate/Dose Change 12/30/2021 2:25 PM PIPING DESIGNER 0.25 mcg/kg/min 13.106 mL/h r phenylephrine injection Given 12/30/2021 2:31 PM PIPING DESIGNER 100 mcg intravenous, As needed, Starting on Tue12/30/21 at 1346, Anesthesia Intra-op Given 12/30/2021 2:12 PM PIPING DESIGNER 100 mcg Given 12/30/2021 2:10 PM PIPING DESIGNER 100 mcg propofol 10 mg/mL infusion New Bag 12/30/2021 1:15 50 mcg/kg/min 2 0.97 mL/hr (DIPRIVAN) PM PIPING DESIGNER intravenous, Continuous Infusion: Per Instructions PRN, Starting on Tue12/30/21 at 1315, Anesthesia Intra-op New Bag 12/30/2021 1:09 PM PIPING DESIGNER 50 mcg/kg/min 20.97 mL/hr propofoL injection (DIPRIVAN) Given 12/30/2021 12:59 PM PIPING DESIGNER 140 mg intravenous, As needed, Starting on Tue12/30/21 at 1259, Anesthesia Intra-op rocuronium injection (ZEMURON) Given 12/30/2021 1:12 PM PIPING DESIGNER 10 mg intravenous, As needed, Starting on Tue12/30/21 at 1301, Anesthesia Intra-op Given 12/30/2021 1:01 PM PIPING DESIGNER 50 mg sugammadex injection (BRIDION) Given 12/30/2021 3:14 PM PIPING DESIGNER 139.8 mg intravenous, As needed, Starting on [...] documented as of this encounter Care Teams Professor Of Religious Studies Relationship Specialty Start Date End Date Elsewhere, Pcp PCP - General Family Medicine 12/25/21 documented as of this encounter
--- OUTSIDE RECORDS SUMMARY | 2022-08-14 17:50 | XMS_ITS | Encounter Summary ---
:1965 Author Organization [facility] Address [address] [place] [address] Care Team Providers Name Role Phone Elsewhere, Pcp Primary Care Provider Unavailable Reason for Visit Reason Comments OPAT Intervention Encounter Details Date Type Department Care Team Description 01/07/2022 Clinical Communication Section of MATTHEW Tolbert (Intervention) Infectious Diseases [facility] [phone] [address] [facility] (Work) [place] [address] Social History Tobacco Use Types Packs/Day Years [...] you attend yazidism or Patient refused 2021 church services? Do [...] Dandy Reyes, Pharm.D. - 01/12/2022 9:38 AM HAND SCUDDER Pertinent labs and antimicrobial regimen as indicated [...] >0.3 mg/dL and absolute value >1.0 mg/dL. SCUDDER Telephone Encounter - Steven Dennis R.N. - 01/12/2022 9:13 AM CST OPAT NOTE Infusion Provider: Dennis [facility], phone: [phone], fax: [phone] Labs and site care at [facility], phone: [phone] Antimicrobial(s) currently prescribed: See Med List Hyperlink in note Firm stop date: 02/11/22 Lab results from 01/07/22 are viewable in the MCR record--listed as External Labs (received via fax, which has been uploaded to Document Viewer/Media) Interpretation and action: Will send to the OPAT pharmacist to review the creatinine, which has decreased >30%. Alk phos wasnot drawn. SCUDDER documented in this encounter Plan of Treatment Upcoming Encounters Date Type Specialty Care Team Description 09/01/2022 Clinical Communication Admitting/Central Scheduling 09/06/2022 Appointment Radiology Alfredo Herrera O.P.A.-C. [address] [place] [address] 09/06/2022 Office Visit Orthopedic Surgery Cyrus Polk M.D. [address] [place] [address] documented as of this encounter Procedures Procedure Name Priority Date/Time Associated Comments Diagnosis CBC WITH DIFFERENTIAL, B Routine 01/07/2022 2:30 Results for this PM HAND SCUDDER procedure are i n the results section. ALANINE AMINOTRANSFERASE Routine 01/07/2022 2:30 Results for this (ALT), S/P PM HAND SCUDDER procedure are i n the results section. CREATININE WITH EGFR, Routine 01/07/2022 2:30 Res ults for this S/P PM HAND SCUDDER procedure are i n the results section. documented in this encounter Results ALT (Alanine Aminotransferase) (01/07/2022 2:30 PM HAND SCUDDER) P athologist Signature EXT ALT 10 4 - 35 [facility] ([place]) Specimen (Source) Anatomical Location Collection Method / Collectio n Time Received Time / Laterality Volume Blood (Blood, Venous) Laly Ward APRN, R.N. LAB BLOOD ADD-ON Performing Organization Address City/State/ZIP Code Phon e Number [facility], [address] [place] [id number] [facility]) Creatinine with Estimated GFR (01/07/2022 2:30 PM HAND SCUDDER) Analysis Performed At Patho logist Time Signature EXT Creatinine 0.5 0.5 - 1.5 [place] mg/dL [facility], [facility]) Specimen (Source) Anatomical Location Collection Method / Collectio n Time Received Time / Laterality Volume Blood (Blood, Venous) Narrative This result has an attachment that is no t available. Laly Ward APRN, R.N. LAB BLOOD ADD-ON Performing Organization Address City/[facility] e Number [facility], [address] [place] [id number] [facility]) (ABNORMAL) CBC with Differential, Blood (01/07/2022 2:30 PM HAND SCUDDER) Patholo gist Method Time Signature EXT Platelet 349 150 - 450 [facility], [facility]) EXT Eosinophils 0.28 0 - 0.5 [facility] EXT Hemoglobin 8.7 (A) 12 - 15.5 [facility]) EXT Absolute 3.19 1.7 - 7 [place] Neutrophils [facility], [facility]) EXT White Blood 5.4 5.0 - [place] Cell (WBC) 10.0 [facility]) Specimen (Source) Anatomical Location Collection Method / Collectio n Time Received Time / Laterality Volume Blood (Blood, Venous) Narrative This result has an attachment that is no t available. Laly Ward APRN, R.N. LAB BLOOD ADD-ON Performing Organization Address City/State/[facility] e Number [facility], [address] [place] [phone] [facility]) documented in this encounter Visit Diagnoses Not on filedocumented in this encounter Additional Health Concerns Assessment Noted Time PHQ-9 Depression Total Score: 16 02/11/2021 12:00 AM C DT documented as of this encounter Care Teams Sed High School Teacher Relationship Specialty Start Date End Date Elsewhere, Pcp PCP - General Family Medicine 12/25/21 documented as of this encounter
--- OUTSIDE RECORDS SUMMARY | 2022-08-14 17:50 | XMS_ITS | Encounter Summary ---
:1965 Author Organization [facility] Address [address] [place] [address] Care Team Providers Name Role Phone Elsewhere, Pcp Primary Care Provider Unavailable Reason for Referral Outpatient (Routine) - Closed Specialty Diagnoses / Procedures Referred By Contact Refer red To Contact Orthopedic Surgery Diagnoses Pain Shoulder Left Alfredo Herrera, [facility] [address] [place] [phone] Referral ID Status Reason Start Date Expiration Date Visits Requ ested Visits Authorized [id number] Closed 12/30/2021 12/30/2022 1 1 NING PROGRAM ASSISTANT Reason for Visit Reason Comments Pre-visit Testing Orders Encounter Details Date Type Department Care Team Description 12/29/2021 Clinical Communication Department of Jam Pre- visit Testing Orthopedic Surgery Cyrus Souza M.D. Orders in [address] [place] [phone] [place], [place] [phone] (Work) [phone] Social History Tobacco Use Types Packs/Day Years [...] you attend samaritan or Patient refused 2021 gnosticist services? Do you belong to any clubs or No 05/17/2022 organizations such as samaritan groups, unions, [employer]Skuld[employer] or athletic groups, or school groups? How [...] 12/29/2021 1:06 PM CST Please sign order NING PROGRAM ASSISTANT documented in this encounter Plan of Treatment Upcoming Encounters Date Type Specialty Care Team Description 09/01/2022 Clinical Communication Admitting/Central Scheduling 09/06/2022 Appointment Radiology Alfredo Herrera O.P.A.-C. [address] [place] [address] 09/06/2022 Office Visit Orthopedic Surgery Cyrus Polk M.D. [address] [place] [address] Scheduled Referrals Name Type Priority Associated Order Schedule Diagnoses Orthopedic Surgery Outpatient Referral Routine Pain Shoulder L eft Expected: Pre Op (clinic) 02/24/2022, Expires: 03/28/2023 documented as of this encounter Results SARS CoV-2 RNA, PCR, Varies Asymptomatic (02/25/2022 11:09 AM CDT) [facility] Method Time Signature SARS CoV-2 Swab, [...] Drug Administration an d is used per joint sealer's instructions. Performance characteristics were verified by [facility] in a manner consistent with CLIA requirements. Visit the CDC website: https://www.cdc.g ov/coronavirus/ for the most recent guidelines on Coron avirus testing. Fact Sheet for Healthcare Providers: https://www.fda.gov/media/722236/downloa d Fact Sheet for Patients: https://www.fda.gov/media/048403/downloa d Specimen Anatomical Collection Method Collection Time Receive d Time (Source) Location / / Volume Laterality Varies 02/25/2022 11:09 02/25/2022 (Nasopharynx) AM CDT 11:40 AM CDT Alfredo Kamara LAB MICROBIOLOGY - GENERAL O RDERABLES Performing Organization Address City/State/ZIP Code Phon e Number [facility] [address] [place], [place] [address] [place] [address] [facility] [address] documented in this encounter Visit Diagnoses Diagnosis Pain Shoulder Left - Primary documented in this encounter Additional Health Concerns Infection Onset Date Last Indicated Resolved Time COVID19 Pending 12/29/2021 12/29/2021 12/29/2021 4:20 PM TRAINING PROGRAM ASSISTANT Assessment Noted Time PHQ-9 Depression Total Score: 16 02/11/2021 12:00 AM C DT documented as of this encounter Care Teams Associate Dean Relationship Specialty Start Date End Date Elsewhere, Pcp PCP - General Family Medicine 12/25/21 documented as of this encounter
--- OUTSIDE RECORDS SUMMARY | 2022-08-14 17:50 | XMS_ITS | Encounter Summary ---
:1965 Author Organization 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 [address] [place] [phone] Referral ID Status Reason Start Date Expiration Date Visits V isits Requested Authorized [id number] Authorized 01/01/2022 01/01/2023 1 1 ICE DESK ASSOCIATE Encounter Details Date Type Department Care Team Description 12/30/2021 - Hospital Encounter [facility] Kulwant Polk M.D. [address] [place] [phone] Pain Shoulder Left (Primary Dx); 01/01/2022 Hospital, Uatsdin Kennedi Vera MPAS, P.A.-C. [address] [place] [phone] Shoulder Joint Disorder Left; Afshin Blasenberg Direct Inf ection Of Left Shoulder In Infectious And Parasitic Diseases Classified Elsewhere (HCC) Building, Eighth Floor [address] [place] [phone] Social History Tobacco Use Types Packs/Day Years [...] Comments Blood Pressure 141/91 01/01/2022 4:26 PM SERVICE DESK ASSOCIATE Pulse 95 01/01/2022 4:26 PM SERVICE DESK ASSOCIATE Temperature 36.8 ??C (98.2 ??F) 01/01/2022 4:26 PM SERVICE DESK ASSOCIATE Respiratory Rate 18 01/01/2022 4:26 PM SERVICE DESK ASSOCIATE Oxygen Saturation 93% 01/01/2022 4:26 PM SERVICE DESK ASSOCIATE Inhaled Oxygen Concentration - - Weight 69.9 kg (154 lb 1.6 12/30/2021 11:22 AM oz) SERVICE DESK ASSOCIATE Height 150.5 cm (4' 11.25) 12/30/2021 11:22 AM no shoe s/boots SERVICE DESK ASSOCIATE Body Mass Index 30.86 12/30/2021 11:22 AM SERVICE DESK ASSOCIATE documented in this encounter Discharge Summaries Dario Carrera M.D. - 01/01/2022 8:50 AM CST DISCHARGE SUMMARY BRIEF OVERVIEW Hospital: [facility] Discharge Provider: Cyrus Polk M.D. Primary [...] were provided to the patient and caregiver(s). ICE DESK ASSOCIATE documented in this encounter Discharge Instructions AttachmentsThe following attachments cannot be sent through Care Everywhere. Continuous Nerve-Block Infusion System: Often called a ???pain pump?? (Puerto Rican) documented in this encounter Medications at Time [...] needed. multivit-min/iron/folic/ Take 1 tablet by 0 [id number] (HAIR, SKIN AND mouth daily. NAILS ADVANCED [...] when she got up for the day. ICE DESK ASSOCIATE Ruth Gonzalez P.T., D.P.T. - 01/01/2022 4:29 [...] mask during therapy session: no Outcome Measures -[facility] Inpatient Short Form: -[facility] Basic Mobility (V.2) How much help [...] steps with a railing?: A Little AM-[facility] Basic Mobility (V.2) Raw Score: 23 AM-PAC Basic Mobility (V.2) Standardized Score: 50.88 Interpretation: Clinicians answer the AM-[facility] Inpatient Short Form based on observed [...] quad cane since it is not available [facility] by prescription. Barriers to Discharge Home: [...] (min): 23 min Ruth Gonzalez P.T., Juice.P.TBritton ICE DESK ASSOCIATE Elvira Duncan R.N. - 01/01/2022 3:21 PM [...] educational pamphlet Continuous Nerve-Block Infusion System ( [id number]).?? Discussed at home removal of nervecatheter, signs [...] our ownership and financial relationship of the [facility]/home health & hospice agencies. Reviewed [...] Selected Services Address Phone Fax Patient Preferred [facility] Infusion and IV Therapy [id number], [place] [phone] -- Contact: Intake NURSING: - Adjust the [...] draws will be managed by Outpatient Facility: [facility] Center Address: [address] , [place], [place] Contact: Princess They will provide IV [...] continue to follow. Joe Ervin, M.S.W. 01/01/2022 ICE DESK ASSOCIATE Gucci Salvador M.D. - 01/01/2022 10:45 AM [...] questions answered to patient's satisfaction. Please page [phone] for questions. 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 [phone] ICE DESK ASSOCIATE Pamela Crawford Pharm.D., R.Ph. - 01/01/2022 10:14 [...] on post-operative opioids Pamela Crawford Pharm.D., R.Ph. [phone] ICE DESK ASSOCIATE Jose Guadalupe Nixon M.D. - 01/01/2022 8:31 AM CST Infectious Diseases Orthopedic Surgery [facility] Consulting Service Progress Note SUBJECTIVE [...] Date/Time Bacteria / Mandi Culture, Blood #2 [[id number]] Collected: 12/31/21 1604 Lab Status: In process Specimen: Blood, Peripheral Draw Updated: 12/31/21 1651 Narrative: Received Bactec aerobic and Bactec anaerobic bottles Specimen Information: Specimen ID: [id number] Specimen Source: Blood, Peripheral Draw Specimen Comment: Specimen Source Site: Blood Specimen Collection Start Date: 12/31/2021 4:05 PM Specimen Received Date: 12/31/2021 4:51 PM Specimen ID: [id number] Specimen Source: Blood, Peripheral Draw Specimen Comment: Specimen Source Site: Blood Specimen Collection Start Date: 12/31/2021 4:05 PM Specimen Received Date: 12/31/2021 4:51 PM Specimen ID: [id number] Specimen Source: Blood, Peripheral Draw Specimen Comment: Specimen Source Site: Blood Specimen Collection Start Date: 12/31/2021 4:04 PM Specimen Received Date: 12/31/2021 4:51 PM Bacteria / Mandi Culture, Blood #1 [[id number]] Collected: 12/31/21 1552 Lab Status: In process Specimen: Blood, Peripheral Draw Updated: 12/31/21 165 Narrative: Received Bactec aerobic and Bactec anaerobic bottles Specimen Information: Specimen ID: [id number] Specimen Source: Blood, Peripheral Draw Specimen Comment: Specimen Source Site: Blood Specimen Collection Start Date: 12/31/2021 3:52 PM Specimen Received Date: 12/31/2021 4:50 PM Specimen ID: [id number] Specimen Source: Blood, Peripheral Draw Specimen Comment: Specimen Source Site: Blood Specimen Collection Start Date: 12/31/2021 3:53 PM Specimen Received Date: 12/31/2021 4:50 PM Specimen ID: [id number] Specimen Source: Blood, Peripheral Draw Specimen Comment: Specimen Source Site: Blood Specimen Collection Start Date: 12/31/2021 3:53 PM Specimen Received Date: 12/31/2021 4:50 PM Bacteria Cult, Aerobe / Anaerobe+Susc [[id number]] Collected: 12/30/21 1411 Lab Status: Preliminary result Specimen: Shoulder, Left Updated: 12/31/21 1601 Bacteria Cult, Aerobe/Anaerobe+Susc No growth to date. Narrative: Bacterial Culture: Placed in Bactec aerobic and Bactec anaerobic bottles Bacteria Cult, Aerobe / Anaerobe+Susc [[id number]] Collected: 12/30/21 1405 Lab Status: Preliminary result Specimen: Synovial Fluid, Left Shoulder Updated: 12/31/21 1601 Bacteria Cult, Aerobe/Anaerobe+Susc No growth to date. Narrative: Bacterial Culture: Placed in Bactec aerobic and Bactec anaerobic bottles Bacteria Cult, Aerobe / Anaerobe+Susc [[id number]] Collected: 12/30/21 1404 Lab Status: Preliminary result Specimen: Shoulder, Left Updated: 12/31/21 1601 Bacteria Cult, Aerobe/Anaerobe+Susc No growth to date. Narrative: Bacterial Culture: Placed in Bactec aerobic and Bactec anaerobic bottles Bacteria Cult, Aerobe / Anaerobe+Susc [[id number]] Collected: 12/30/21 1403 Lab Status: Preliminary result Specimen: Shoulder, Left Updated: 12/31/21 1601 Bacteria Cult, Aerobe/Anaerobe+Susc No growth to date. Narrative: Bacterial Culture: Placed in Bactec aerobic and Bactec anaerobic bottles Bacteria Cult, Aerobe / Anaerobe+Susc [[id number]] Collected: 12/30/21 1403 Lab Status: Preliminary result Specimen: Shoulder, Left Updated: 12/31/21 1601 Bacteria Cult, Aerobe/Anaerobe+Susc No growth to date. Narrative: Bacterial Culture: Placed in Bactec aerobic and Bactec anaerobic bottles SARS Coronavirus 2, Molecular Detection, PCR, Varies Asymptomatic [[id number]] Collected: 12/29/21 1111 Lab Status: Final result [...] ----ADDITIONAL INFORMATION---- This RT-PCR test using the [employer] SARS-CoV-2 Assay ( GenOil.) performed on the [employer] Two Module System has received Emergency Use Authorization (EUA) by the U.S. Food and Drug Administration, and is modified from the shale processing technician's instructions with a bridging study. Performance characteristics were verified by [facility] in a manner consistent with CLIA requirements. Visit the CDC website: https://www.cdc.gov/coronavirus/ for the most recent guidelines on Coronavirus testing. Fact Sheet for Healthcare Providers: https://www.fda.gov/media/540699/download Fact Sheet for Patients: https://www.fda.gov/media/520383/download ASSESSMENT / PLAN 56-year-old female with a [...] is consistent with aspiration results from original [facility] evaluation which is likely service support representative of the culprit organism causing [...] of Infectious Diseases OPAT monitoring program at [phone] after dismissal. Primary service to follow labs while patient is hospitalized. [facility] pharmacist to adjust dosing after dismissal 4. [...] off at this time. Please page Ortho [facility] service pager at [phone] with any questions. ?? Jose Guadalupe Nixon [...] - Date/Time Bacteria Cult, Aerobe / Anaerobe+Susc [[id number]] Collected: 12/30/21 1411 Lab Status: In process Specimen: Shoulder, Left Updated: 12/30/21 1540 Narrative: Bacterial Culture: Placed in Bactec aerobic and Bactec anaerobic bottles Bacteria Cult, Aerobe / Anaerobe+Susc [[id number]] Collected: 12/30/21 1405 Lab Status: In process Specimen: Synovial Fluid, Left Shoulder Updated: 12/30/21 1519 Narrative: Bacterial Culture: Placed in Bactec aerobic and Bactec anaerobic bottles Bacteria Cult, Aerobe / Anaerobe+Susc [[id number]] Collected: 12/30/21 1404 Lab Status: In process Specimen: Shoulder, Left Updated: 12/30/21 1536 Narrative: Bacterial Culture: Placed in Bactec aerobic and Bactec anaerobic bottles Bacteria Cult, Aerobe / Anaerobe+Susc [[id number]] Collected: 12/30/21 1403 Lab Status: In process Specimen: Shoulder, Left Updated: 12/30/21 1533 Narrative: Bacterial Culture: Placed in Bactec aerobic and Bactec anaerobic bottles Bacteria Cult, Aerobe / Anaerobe+Susc [[id number]] Collected: 12/30/21 1403 Lab Status: In process Specimen: Shoulder, Left Updated: 12/30/21 1538 Narrative: Bacterial Culture: Placed in Bactec aerobic and Bactec anaerobic bottles SARS Coronavirus 2, Molecular Detection, PCR, Varies Asymptomatic [[id number]] Collected: 12/29/21 1111 Lab Status: Final result [...] ----ADDITIONAL INFORMATION---- This RT-PCR test using the [employer] SARS-CoV-2 Assay ( GenOil.) performed on the [employer] Two Module System has received Emergency Use Authorization (EUA) by the U.S. Food and Drug Administration, and is modified from the shale processing technician's instructions with a bridging study. Performance characteristics were verified by [facility] in a manner consistent with CLIA requirements. Visit the CDC website: https://www.cdc.gov/coronavirus/ for the most recent guidelines on Coronavirus testing. Fact Sheet for Healthcare Providers: https://www.fda.gov/media/099726/download Fact Sheet for Patients: https://www.fda.gov/media/339039/download ASSESSMENT / PLAN IMPRESSION/REPORT/PLAN #1 Status post [...] 6 am, please page Ortho House at [facility] [phone] Trey Phan R.N. - 12/31/2021 7:34 AM [...] - Date/Time Bacteria Cult, Aerobe / Anaerobe+Susc [[id number]] Collected: 12/30/21 1411 Lab Status: In process Specimen: Shoulder, Left Updated: 12/30/21 1540 Narrative: Bacterial Culture: Placed in Bactec aerobic and Bactec anaerobic bottles Bacteria Cult, Aerobe / Anaerobe+Susc [[id number]] Collected: 12/30/21 1405 Lab Status: In process Specimen: Synovial Fluid, Left Shoulder Updated: 12/30/21 1519 Narrative: Bacterial Culture: Placed in Bactec aerobic and Bactec anaerobic bottles Bacteria Cult, Aerobe / Anaerobe+Susc [[id number]] Collected: 12/30/21 1404 Lab Status: In process Specimen: Shoulder, Left Updated: 12/30/21 1536 Narrative: Bacterial Culture: Placed in Bactec aerobic and Bactec anaerobic bottles Bacteria Cult, Aerobe / Anaerobe+Susc [[id number]] Collected: 12/30/21 1403 Lab Status: In process Specimen: Shoulder, Left Updated: 12/30/21 1533 Narrative: Bacterial Culture: Placed in Bactec aerobic and Bactec anaerobic bottles Bacteria Cult, Aerobe / Anaerobe+Susc [[id number]] Collected: 12/30/21 1403 Lab Status: In process Specimen: Shoulder, Left Updated: 12/30/21 1538 Narrative: Bacterial Culture: Placed in Bactec aerobic and Bactec anaerobic bottles SARS Coronavirus 2, Molecular Detection, PCR, Varies Asymptomatic [[id number]] Collected: 12/29/21 1111 Lab Status: Final result [...] ----ADDITIONAL INFORMATION---- This RT-PCR test using the [employer] SARS-CoV-2 Assay ( GenOil.) performed on the [employer] Two Module System has received Emergency Use Authorization (EUA) by the U.S. Food and Drug Administration, and is modified from the shale processing technician's instructions with a bridging study. Performance characteristics were verified by [facility] in a manner consistent with CLIA requirements. Visit the CDC website: https://www.cdc.gov/coronavirus/ for the most recent guidelines on Coronavirus testing. Fact Sheet for Healthcare Providers: https://www.fda.gov/media/011887/download Fact Sheet for Patients: https://www.fda.gov/media/963435/download ASSESSMENT / PLAN IMPRESSION/REPORT/PLAN #1 Status post [...] DO Shoulder & Elbow Fellow [facility] Orthopaedic Surgery For any questions or concerns from 6 am until 6 pm, please page Jam service For urgent matters from 6 pm until 6 am, please page Arthur [facility] at [facility] [phone] ICE DESK ASSOCIATE Trey Rdz R.N. - 12/30/2021 4:39 PM [...] Care Plan:continue current management per plan/IPS protocol ICE DESK ASSOCIATE Feli Viveros, PharmBrittonDBritton, R.Ph. - 12/30/2021 11:33 [...] home. She is registered with the state [facility] for medical cannabis and she [place]. She was told to leave her [...] Take 150 mg by mouth every morning. fefkoljzli-nfowcumovzjyi-hclq (ESGIC) 50-325-40 mg per tablet Past Week [...] by mouth 2 (two) times a day. ICE DESK ASSOCIATE documented in this encounter Procedure Notes Soraida Dikc R.N. - 01/01/2022 12:11 PM CSTAssociated Order(s): [...] to release the adhesive from the skin. http://[email or web address]/[email or web address] ICE DESK ASSOCIATE documented in this encounter Consult Notes Ruth [...] (HCC) ??? Nicotine Dependence Unspecified ??? 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 ABDOMINOPLASTY ??? ARTHROPLASTY - RESECTION SHOULDER Left 12/30/2021 Procedure: ARTHROPLASTY RESECTION SHOULDER.; Surgeon: Cyrus Polk M.D.; Location: [facility] OR ??? BACK SURGERY 1998 [...] Right Lives With: Alone Receives Help From: locker plant attendant, Family, Friend(s) ADL Assistance: Required assistance ADL Assistance Comments: Gets help from JAVA CORE DEVELOPER for her bath/shower and for her meals IADL/Homemaking Assistance: Required assistance IADL/Homemaking Assistance Comments: Gets help for housecleaning Driving: Independent Occupational Role: On disability Prior Mobility/Functional Transfers Level of [place]: Modified independent Gait Devices/Wheelchair Used: Cane Gait [...] session with call light in reach and JAVA CORE DEVELOPER present, all needs metand questions answered. Contact monitoring: PPE used during therapy: Therapist was wearing the following PPE throughout entire session: surgicalmask and eye protection Patient was wearing a mask during therapy session: yes, when out of room Outcome Measures [facility] Inpatient Short Form: -[facility] Basic Mobility (V.2) How much help [...] steps with a railing?: A Lot -[facility] Basic Mobility (V.2) Raw Score: 17 -[facility] Basic Mobility (V.2) Standardized Score: 39.67 Interpretation: Clinicians answer the -[facility] Inpatient Short Form based on observed [...] (min): 36 min Ruth Gonzalez P.T., D.P.T. ICE DESK ASSOCIATE Thao You L.I.C.SBrenton, M.S.W. - 12/31/2021 2:04 PM CSTAssociated Order(s): IP CONSULT TO CARE MANAGEMENT; IP CONSULT TO CARE MANAGEMENT; IP CONSULT TO CARE MANAGEMENT Psychosocial Assessment SUBJECTIVE DEMOGRAPHIC INFORMATION Person(s) present during interview: Patient Primary care clinic and provider: [facility] Primary Language: Puerto Rican Legal Information: Legal decision maker for self [...] / Household Status: Patient resides alone in [place], [place]. She lives in a two bedroom apartment. Patient has four adultchildren two of whom live in [place]. Patient son Rafal lives next door to patient. Support Systems: Family members, Friends/neighbors. We have not received permission to contact them. Primary caregiver: Self Accompanied by/Relationship: None Support System: Family members, Friends/neighbors Spirituality / Anabaptism / Culture: , None History: No Education: High school Employment: Disabled Psychosocial Risk Factors impacting the patient: Resides alone, mental health issues Abuse, Neglect, Maltreatment, Trauma: Current: None reported. Past: None reported. ENVIRONMENTAL SUPPORTS Current Living Situation: Private residence Patient's Home Environment: Resides in a two bedroom apartment on the [address] [facility] Care Facility Name (if applicable): [...] Behavior: Oriented Communication: Reads, writes and speaks Puerto Rican It is anticipated that the patient will need assistance with .Dressing,bathing, meal prep, housekeeping, shopping ASSISTIVE DEVICES Patient has the following equipment: Eyeglasses, Dentures upper, Dentures lower, cane, walker Patient anticipates potentially needing the following additional equipment: None Transportation needs: Independent to drive, support from family and friends SERVICES REQUESTED Infusion therapy DIET ASSISTANT Formal and Informal Resources: Patient receives home health aid services three times per week and assisted visit one time every two weeks through [facility]. FINANCES/INSURANCE Primary insurance: MEDICARE A AND B Secondary insurance: MEDICA ADVANCE DIRECTIVES Advance Directive: Patient does not have advance directive, does not want information DISCHARGE PLANNING Patient is planning on returning home upon her discharge. She currently receives home health aid services and assisted through [facility]. Patient also has support from a son [...] good support group consisting [facility] family, [facility]. INTERVENTIONS ?? Psychosocial assessment ?? Rapport building ?? Education on coping with chronic pain. PLAN ?? Social work will continue to follow for discharge planning and support. ?? Social work did speak with Pat at [facility] to confirm home health services. ?? Social work will work on infusion therapy referrals as well as home health/outpatient picc site care and labs. Anticipated barriers to the transition of care/plan: None Joe Ervin, M.S.W. 12/31/2021 ICE DESK ASSOCIATE Jose Guadalupe Nixon M.D. - 12/31/2021 7:31 AM CSTAssociated Order(s): IP CONSULT TO INFECTIOUS DISEASES Infectious Diseases Orthopedic Surgery [facility] Consulting Service Consult Note SUBJECTIVE [...] OSH AST. She presented to [facility] (unclear if on antibiotics) for further evaluation given persistent L shoulder pain 08/2021 prompting aspiration (09/25/21) which revealed elevated TNC (53710) with 81% PMNs with cultures positive for1 [...] patient was subsequently admitted to [facility] for further management. Intraoperative cultures and [...] - Date/Time Bacteria Cult, Aerobe / Anaerobe+Susc [[id number]] Collected: 12/30/21 1411 Lab Status: In process Specimen: Shoulder, Left Updated: 12/30/21 1540 Narrative: Bacterial Culture: Placed in Bactec aerobic and Bactec anaerobic bottles Bacteria Cult, Aerobe / Anaerobe+Susc [[id number]] Collected: 12/30/21 1405 Lab Status: In process Specimen: Synovial Fluid, Left Shoulder Updated: 12/30/21 1519 Narrative: Bacterial Culture: Placed in Bactec aerobic and Bactec anaerobic bottles Bacteria Cult, Aerobe / Anaerobe+Susc [[id number]] Collected: 12/30/21 1404 Lab Status: In process Specimen: Shoulder, Left Updated: 12/30/21 1536 Narrative: Bacterial Culture: Placed in Bactec aerobic and Bactec anaerobic bottles Bacteria Cult, Aerobe / Anaerobe+Susc [[id number]] Collected: 12/30/21 1403 Lab Status: In process Specimen: Shoulder, Left Updated: 12/30/21 1533 Narrative: Bacterial Culture: Placed in Bactec aerobic and Bactec anaerobic bottles Bacteria Cult, Aerobe / Anaerobe+Susc [[id number]] Collected: 12/30/21 1403 Lab Status: In process Specimen: Shoulder, Left Updated: 12/30/21 1538 Narrative: Bacterial Culture: Placed in Bactec aerobic and Bactec anaerobic bottles SARS Coronavirus 2, Molecular Detection, PCR, Varies Asymptomatic [[id number]] Collected: 12/29/21 1111 Lab Status: Final result [...] ----ADDITIONAL INFORMATION---- This RT-PCR test using the [employer] SARS-CoV-2 Assay ( GenOil.) performed on the [employer] Two Module System has received Emergency Use Authorization (EUA) by the U.S. Food and Drug Administration, and is modified from the shale processing technician's instructions with a bridging study. Performance characteristics were verified by [facility] in a manner consistent with CLIA requirements. Visit the CDC website: https://www.cdc.gov/coronavirus/ for the most recent guidelines on Coronavirus testing. Fact Sheet for Healthcare Providers: https://www.fda.gov/media/689465/download Fact Sheet for Patients: https://www.fda.gov/media/618477/download ASSESSMENT / PLAN 56-year-old female with a [...] is consistent with aspiration results from original [facility] evaluation which is likely service support representative of the culprit organism causing [...] follow along closely. Please page the Ortho [facility] service pager at [phone] with questions. Thank you for the consultation. Jose Guadalupe Nixon M.D. ICE DESK ASSOCIATE Associated attestation - Gucci Salvador M.D. - 12/31/2021 6:07 PM SERVICE DESK ASSOCIATE DEMOGRAPHIC INFORMATION [facility] Number:[phone] Patient Name: Angie Mosquera Date: [...] Oxycodone. Oxycodone filled here at [facility] pharmacy. Patient going home with an interscalene block OnQ pump. Transportation provided by her son. ICE DESK ASSOCIATE Fanny Sifuentes R.N. - 12/31/2021 11:00 PM [...] Nasal mucous membranes remain intact Outcome: Progressing ICE DESK ASSOCIATE Ezequiel Hernandez R.N. - 12/30/2021 10:27 PM [...] staff assistance to bathroom. Navin Hernandez R.N. ICE DESK ASSOCIATE documented in this encounter OR Notes Op Note - Cyrus Polk M.D. - 12/30/2021 2:50 PM CST STAFF: Cyrus Polk M.D. RESIDENT: Dario Carrera M.D. PRE-OPERATIVE DIAGNOSIS Left infected reverse arthroplasty. POST-OPERATIVE DIAGNOSIS Left infected reverse arthroplasty. A assistant press operator was necessary for one or more of [...] Cyrus Polk M.D. CT CT Job ID: [id number] ICE DESK ASSOCIATE documented in this encounter Miscellaneous Notes Hospital [...] and pain is controlled on oral medications. ICE DESK ASSOCIATE documented in this encounter Plan of Treatment Upcoming Encounters Date Type Specialty Care Team Description 09/01/2022 Clinical Communication Admitting/Central Scheduling 09/06/2022 Appointment Radiology Alfredo Herrera O.P.A.-C. [address] [place] [address] 09/06/2022 Office Visit Orthopedic Surgery Cyrus Polk M.D. [address] [place] [address] Scheduled Referrals Name Type Priority Associated Diagnoses Order S [facility] Outpatient Referral Routine Direct Infection Of Ordered: Health Referral Left Shoulder In 01/01/20 22 Infectious And Parasitic Diseases Classified Elsewhere (HCC) documented as of this encounter Procedures Procedure Name Priority Date/Time Associated Comments Diagnosis PLACE PERIPHERALLY Routine 01/01/2022 12:11 Resul ts for this INSERTED CENTRAL PM SERVICE DESK ASSOCIATE procedure a re in CATHETER (PICC) the results section. REMOTE OXIMETRY Routine 12/31/2021 5:23 MONITORING CONT. PM SERVICE DESK ASSOCIATE REMOTE OXIMETRY Routine 12/31/2021 5:23 MONITORING CONT. PM SERVICE DESK ASSOCIATE BACTERIA / MANDI Routine 12/31/2021 4:04 Result s for this CULTURE, BLOOD PM SERVICE DESK ASSOCIATE procedure are in the results section. BACTERIA / MANDI Routine 12/31/2021 3:52 Result s for this CULTURE, BLOOD PM SERVICE DESK ASSOCIATE procedure are in the results section. ADULT OXYGEN THERAPY Routine 12/31/2021 8:01 AM SERVICE DESK ASSOCIATE CBC WITH Routine 12/31/2021 4:25 Results for this DIFFERENTIAL, B AM SERVICE DESK ASSOCIATE procedure ar e in the results section. BASIC METABOLIC Routine 12/31/2021 4:25 Results f or this PANEL, S/P AM SERVICE DESK ASSOCIATE procedure are i n the results section. ADULT OXYGEN THERAPY Routine 12/30/2021 8:01 PM SERVICE DESK ASSOCIATE ADULT OXYGEN THERAPY Routine 12/30/2021 5:12 PM SERVICE DESK ASSOCIATE ADULT OXYGEN THERAPY Routine 12/30/2021 5:12 PM SERVICE DESK ASSOCIATE ADULT OXYGEN THERAPY Routine 12/30/2021 3:46 PM SERVICE DESK ASSOCIATE ADULT OXYGEN THERAPY Routine 12/30/2021 3:46 PM SERVICE DESK ASSOCIATE DX SHOULDER LEFT 1 RAD - Timed (for 12/30/2021 3:41 Re sults for this VIEW specific PM SERVICE DESK ASSOCIATE procedure are i n dates/times) the results section. SURGICAL PATHOLOGY, Routine 12/30/2021 2:15 Shoulder Joint Res ults for this [facility] LAB PM SERVICE DESK ASSOCIATE Disorder Left procedure are in the results section. BACTERIA CULT, Routine 12/30/2021 2:11 Results fo r this AEROBE/ANAEROBE+SUSC PM SERVICE DESK ASSOCIATE procedu re are in the results section. BACTERIA CULT, Routine 12/30/2021 2:05 Results fo r this AEROBE/ANAEROBE+SUSC PM SERVICE DESK ASSOCIATE procedu re are in the results section. BACTERIA CULT, Routine 12/30/2021 2:04 Results fo r this AEROBE/ANAEROBE+SUSC PM SERVICE DESK ASSOCIATE procedu re are in the results section. BACTERIA CULT, Routine 12/30/2021 2:03 Results fo r this AEROBE/ANAEROBE+SUSC PM SERVICE DESK ASSOCIATE procedu re are in the results section. BACTERIA CULT, Routine 12/30/2021 2:03 Results fo r this AEROBE/ANAEROBE+SUSC PM SERVICE DESK ASSOCIATE procedu re are in the results section. ARTHROPLASTY 12/30/2021 12:34 Shoulder Joint RESECTION SHOULDER PM SERVICE DESK ASSOCIATE Disorder Left documented in this encounter Results Place peripherally inserted central catheter (PICC) (01/01/2022 12:11 PM SERVICE DESK ASSOCIATE) Narrative MMODAL - 01/01/2022 12:11 PM SERVICE DESK ASSOCIATE Soraida Dick R.N. ? 01/01/2022 12:13 PM [...] to release the adhesive from the skin. [email or web address] Dario Carrera M.D. PROCEDURE/MINOR SURGICAL ORD ERABLES Performing Organization Address City/State/ZIP Code Phon e Number MMODAL MMODAL NA Bacteria / Mandi Culture, Blood #2 (12/31/2021 4:04 PM SERVICE DESK ASSOCIATE) [facility] Method Time Signature Bacteria/Valerie No growth 01/05/2022 DTL da Culture, after 5 5:02 PM SERVICE DESK ASSOCIATE Blood days of incubation. Specimen (Source) Anatomical Collection Method Collection Time Re ceived Time Location / / Volume Laterality Blood (Blood, 12/31/2021 4:04 12/31/2021 4:51 Peripheral Draw) PM SERVICE DESK ASSOCIATE PM SERVICE DESK ASSOCIATE Comment: Specimen Source Site: Blood Narrative [facility] [employer] [facility] - 01/05/2022 5:02 PM SERVICE DESK ASSOCIATE Received Bactec aerobic and Bactec anaer obic bottles Dario Carrera M.D. LAB MICROBIOLOGY - GENERAL O RDERABLES Performing Organization Address City/State/ZIP Code Phon e Number [facility] - [address] [place], [place] [address] [facility] [place] [address] Laboratories-[facility] [address] Bacteria / Mandi Culture, Blood #1 (12/31/2021 3:52 PM SERVICE DESK ASSOCIATE) [facility] [employer] Method Time Signature Bacteria/Valerie No growth 01/05/2022 DTL da Culture, after 5 5:02 PM SERVICE DESK ASSOCIATE Blood days of incubation. Specimen (Source) Anatomical Collection Method Collection Time Re ceived Time Location / / Volume Laterality Blood (Blood, 12/31/2021 3:52 12/31/2021 4:50 Peripheral Draw) PM SERVICE DESK ASSOCIATE PM SERVICE DESK ASSOCIATE Comment: Specimen Source Site: Blood Narrative [facility] - [employer] - 01/05/2022 5:02 PM SERVICE DESK ASSOCIATE Received Bactec aerobic and Bactec anaer obic bottles Dario Carrera M.D. LAB MICROBIOLOGY - GENERAL O RDERABLES Performing Organization Address City/State/ZIP Code Phon e Number [facility] - [address] [place], [place] [address] [facility] [place] [address] Laboratories-[facility] [address] [facility] (ABNORMAL) CBC with Differential, Blood (12/31/2021 4:25 AM SERVICE DESK ASSOCIATE) [facility] gist Method Time Signature Hemoglobin 8.9 (L) 11.6 - 12/31/2021 DTL 15.0 g/dL 5:15 AM SERVICE DESK ASSOCIATE Hematocrit 27.3 (L) 35.5 - 12/31/2021 DTL 44.9 % 5:15 AM SERVICE DESK ASSOCIATE Erythrocytes 3.26 (L) 3.92 - 12/31/2021 DTL 5.13 5:15 AM SERVICE DESK ASSOCIATE x10(12)/L MCV 83.7 78.2 - 12/31/2021 DTL 97.9 fL 5:15 AM SERVICE DESK ASSOCIATE RBC Distrib Width 19.6 (H) 12.2 - 12/31/2021 DTL 16.1 % 5:15 AM SERVICE DESK ASSOCIATE Platelet Count 274 157 - 371 12/31/2021 DTL x10(9)/L 5:15 AM SERVICE DESK ASSOCIATE Leukocytes 6.6 3.4 - 9.6 12/31/2021 DTL x10(9)/L 5:15 AM SERVICE DESK ASSOCIATE Neutrophils 4.91 1.56 - 12/31/2021 DTL 6.45 5:15 AM SERVICE DESK ASSOCIATE x10(9)/L Lymphocytes 1.10 0.95 - 12/31/2021 DTL 3.07 5:15 AM SERVICE DESK ASSOCIATE x10(9)/L Monocytes 0.61 0.26 - 12/31/2021 DTL 0.81 5:15 AM SERVICE DESK ASSOCIATE x10(9)/L Eosinophils <0.03 0.03 - 12/31/2021 DTL 0.48 5:15 AM SERVICE DESK ASSOCIATE x10(9)/L Basophils <0.03 0.01 - 12/31/2021 DTL 0.08 5:15 AM SERVICE DESK ASSOCIATE x10(9)/L Specimen Anatomical Collection Method Collection Time Receive d Time (Source) Location / / Volume Laterality Blood (Blood, 12/31/2021 4:25 AM 12/31/19 5:04 Venous) SERVICE DESK ASSOCIATE AM SERVICE DESK ASSOCIATE Dario Carrera M.D. LAB BLOOD ADD-ON Performing Organization Address City/State/ZIP Code Phon e Number [facility] - [address] [place], [place] [address] [facility] [place] [address] Laboratories-[facility] [address] (ABNORMAL) Basic Metabolic Panel (12/31/2021 4:25 AM SERVICE DESK ASSOCIATE) P athologist Signature Potassium, S 4.4 3.6 - 5.2 12/31/2021 DTL mmol/L 5:35 AM SERVICE DESK ASSOCIATE Sodium, S 134 (L) 135 - 145 12/31/2021 DTL mmol/L 5:35 AM SERVICE DESK ASSOCIATE Chloride, S 103 98 - 107 12/31/2021 DTL mmol/L 5:35 AM SERVICE DESK ASSOCIATE Bicarbonate, S 22 22 - 29 12/31/2021 DTL mmol/L 5:35 AM SERVICE DESK ASSOCIATE Anion Gap 9 7 - 15 12/31/2021 DTL 5:35 AM SERVICE DESK ASSOCIATE BUN (Blood Urea 21 6 - 21 12/31/2021 DTL Nitrogen), S mg/dL 5:35 AM SERVICE DESK ASSOCIATE Creatinine 0.74 0.59 - 12/31/2021 DTL 1.04 mg/dL 5:35 AM SERVICE DESK ASSOCIATE eGFR-Non 90 >=60 12/31/2021 DTL Black/ mL/min/BSA 5:35 AM SERVICE DESK ASSOCIATE Prydeinig Comment: ----ADDITIONAL INFORMATION---- Estimated GFR calculated using the 2009 CKD_EPI creatinine equation. eGFR-Black/ >90 >=60 mL/min/BSA 2021 5:35 AM SERVICE DESK ASSOCIATE DTL Comment: ----ADDITIONAL INFORMATION---- Estimated GFR calculated using the 2009 CKD_EPI creatinine equation. Calcium, Total, S 8.7 8.6 - 10.0 mg/dL 12/31/2021 5:35 AM SERVICE DESK ASSOCIATE DTL Glucose, S 138 70 - 140 mg/dL 12/31/2021 5:35 AM SERVICE DESK ASSOCIATE D TL Specimen Anatomical Collection Method Collection Time Receive d Time (Source) Location / / Volume Laterality Blood (Blood, 12/31/2021 4:25 AM 12/31/19 5:18 Venous) SERVICE DESK ASSOCIATE AM SERVICE DESK ASSOCIATE Dario Carrera M.D. LAB BLOOD ADD-ON Performing Organization Address City/State/ZIP Code Phon e Number [facility] - [address] [place], [place] [address] [facility] [place] [address] [facility] [address] SW DX Shoulder Left 1 View (12/30/2021 3:41 PM SERVICE DESK ASSOCIATE) Anatomical Region Laterality Modality Upper Extremity, Shoulder, Musculoskeletal RST LOS, Left Computed Radiography Musculoskeletal ARZ LOS, Muskuloskeletal FLA LOS Specimen (Source) Anatomical Collection Method Collection Time Re ceived Time Location / / Volume Laterality 12/30/2021 3:54 PM SERVICE DESK ASSOCIATE Impressions 12/30/2021 3:59 PM SERVICE DESK ASSOCIATE Postoperative changes of a left shoulder arthroplasty resection and placement of an antibiotic spacer. Negat lalo for postoperative purposes. Narrative 12/30/2021 3:59 PM SERVICE DESK ASSOCIATE EXAM: ??DX SHOULDER LEFT 1 VIEW Procedure Note Timothy Resendiz M.D. - 12/30/2021Forma tting of this note might be different from the original. EXAM: DX SHOULDER LEFT 1 VIEW IMPRESSION: Postoperative changes of a left shoulder arthroplasty resection and placement of an antibiotic spacer. Negat lalo for postoperative purposes. Dario Carrera M.D. IMG DIAGNOSTIC IMAGING [facility] Surgical Pathology, Frozen Lab (12/30/2021 2:15 PM SERVICE DESK ASSOCIATE) Component Value Ref Test Analysis Performed At [facility] Range Method Time Signature 01/01/2022 METH 8:22 AM SERVICE DESK ASSOCIATE Participated in Kelly Howard 01/01/2022 JARED the D.O.-Pathology 8:22 AM SERVICE DESK ASSOCIATE Interpretation Resident Report Solomon Marcum M.D. 01/01/2022 METH electronically 8:22 AM SERVICE DESK ASSOCIATE signed by I verify that I have examined all relevant slides/materials for the specimen(s) and rendered or confirmed the diagnosis. Frozen A. ??Synovium, left shoulder, excision: ??Synovial tissue 01/01/2022 METH Intraoperative with 8:22 AM SERVICE DESK ASSOCIATE Report acute inflammation (>5 neutrophils/high power field). Signed by Solomon Marcum M.D. 12/31/2021 8:17 AM Gross Description A. ??Received fresh labeled left shoulder is a 1.4 x 0.9 x 01/01/2022 METH 0.4 cm aggregate of red and campbell fibrous tissue, which is 8:22 AM SERVICE DESK ASSOCIATE soft. ??All submitted for frozen and permanent sections. Grossed by Nikki Gallardo. Block Summary A Left shoulder 01/01/2022 METH A1 Left shoulder-frozen 8:22 AM SERVICE DESK ASSOCIATE Interpretation FINAL DIAGNOSIS 01/01/2022 METH 8:22 AM SERVICE DESK ASSOCIATE A. ??Synovium, left shoulder, excision: ??Synovial tissue with acute inflammation (>5 neutrophils/high power field). Specimen (Source) Anatomical Collection Method Collection Time Re ceived Time Location / / Volume Laterality Tissue (Shoulder, 12/30/2021 2:15 PM Left) SERVICE DESK ASSOCIATE Narrative This result has an attachment that is no t available. Cyrus Polk M.D. LAB SURG PATH ORDERABLES Performing Organization Address City/State/ZIP Code Phon e Number [facility] - [address] [place] [address] [facility] [place] [address] [facility] [address] [facility] Bacteria Cult, Aerobe / Anaerobe+Susc (12/30/2021 2:11 PM SERVICE DESK ASSOCIATE) [facility] gist Method Time Signature Bacteria Cult, No growth 01/13/2022 DTL Aerobe/Anaerob after 14 4:02 PM SERVICE DESK ASSOCIATE e+Susc days of incubation. Specimen Anatomical Collection Method Collection Time Receive d Time (Source) Location / / Volume Laterality Shoulder, Left 12/30/2021 2:11 PM 022 3:38 SERVICE DESK ASSOCIATE PM SERVICE DESK ASSOCIATE Comment: Specimen Source Site: Tissue #4 Narrative [facility] - [employer] [facility] - 01/13/2022 4:02 PM SERVICE DESK ASSOCIATE Bacterial Culture: Placed in Bactec aero bic and Bactec anaerobic bottles Cyrus Polk M.D. LAB MICROBIOLOGY - GENERAL O RDERABLES Performing Organization Address City/State/ZIP Code Phon e Number [facility] - [address] [place], [place] [address] [facility] [place] [address] [facility] [address] (ABNORMAL) Bacteria Cult, Aerobe / Anaerobe+Susc (12/30/2021 2:05 PM SERVICE DESK ASSOCIATE) Component Value Ref Test Analysis Performed At Patholo gist Range Method Time Signature Bacteria STAPHYLOCOCCUS EPIDERMIDIS 01/11/2022 DT L Cult, Growth after 4 days 7:55 AM SERVICE DESK ASSOCIATE Aerobe/Anaero (A) be+Susc Comment: Semi-Urgent Result. Semi-Urgent This is a semi-urgent result [facility] - (ORTIZ) [facility] S Specimen Anatomical Collection Method Collection Time Receive d Time (Source) Location / / Volume Laterality Synovial Fluid, 12/30/2021 2:05 PM 2021 3:17 Left Shoulder SERVICE DESK ASSOCIATE PM SERVICE DESK ASSOCIATE Comment: Specimen Source Site: Fluid Narrative [facility] - 01/11/2022 7:55 AM SERVICE DESK ASSOCIATE Bacterial Culture: Placed in Bactec aero bic [...] - GENERAL O MARY Performing Organization Address City/[facility] Phon e Number [facility] - [address] [place], [place] [address] [facility] [place] [address] [facility] [address] [facility] Bacteria Cult, Aerobe / Anaerobe+Susc (12/30/2021 2:04 PM SERVICE DESK ASSOCIATE) [facility] Method Time Signature Bacteria Cult, No growth 01/13/2022 DTL Aerobe/Anaerob after 14 4:02 PM SERVICE DESK ASSOCIATE e+Susc days of incubation. Specimen Anatomical Collection Method Collection Time Receive d Time (Source) Location / / Volume Laterality Shoulder, Left 12/30/2021 2:04 PM 022 3:34 SERVICE DESK ASSOCIATE PM SERVICE DESK ASSOCIATE Comment: Specimen Source Site: Tissue #3 Narrative [facility] - 01/13/2022 4:02 PM SERVICE DESK ASSOCIATE Bacterial Culture: Placed in Bactec aero bic and Bactec anaerobic bottles Cyrus Polk M.D. LAB MICROBIOLOGY - GENERAL O MARY Performing Organization Address City/[facility] Phon e Number [facility] - [address] [place], [place] [address] [facility] [place], [place] [id number] [place] [address] [address] [facility] Bacteria Cult, Aerobe / Anaerobe+Susc (12/30/2021 2:03 PM SERVICE DESK ASSOCIATE) [facility] Method Time Signature Bacteria Cult, No growth 01/13/2022 DTL Aerobe/Anaerob after 14 4:02 PM SERVICE DESK ASSOCIATE e+Susc days of incubation. Specimen Anatomical Collection Method Collection Time Receive d Time (Source) Location / / Volume Laterality Shoulder, Left 12/30/2021 2:03 PM 022 3:37 SERVICE DESK ASSOCIATE PM SERVICE DESK ASSOCIATE Comment: Specimen Source Site: Tissue #2 [facility] - 01/13/2022 4:02 PM SERVICE DESK ASSOCIATE Bacterial Culture: Placed in Bactec aero bic and Bactec anaerobic bottles Cyrus Polk M.D. LAB MICROBIOLOGY - GENERAL O MARY Performing Organization Address City/State/[facility] Phon e Number [facility] - [address] [place], [place] [address] [place] [id number] Bacteria Cult, Aerobe / Anaerobe+Susc (12/30/2021 2:03 PM SERVICE DESK ASSOCIATE) [facility] Method Time Signature Bacteria Cult, No growth 01/13/2022 [facility] Aerobe/Anaerob after 14 4:02 PM SERVICE DESK ASSOCIATE e+Susc days of incubation. Specimen Anatomical Collection Method Collection Time Receive d Time (Source) Location / / Volume Laterality Shoulder, Left 12/30/2021 2:03 PM 022 3:31 SERVICE DESK ASSOCIATE PM SERVICE DESK ASSOCIATE Comment: Specimen Source Site: Tissue #1 Narrative [facility] - 01/13/2022 4:02 PM SERVICE DESK ASSOCIATE Bacterial Culture: Placed in Bactec aero bic and Bactec anaerobic bottles Cyrus Polk M.D. LAB MICROBIOLOGY - GENERAL O MARY Performing Organization Address [facility] Phon e Number [facility] - [address] [place] [id number] [place] [address] documented in this encounter Visit Diagnoses Diagnosis [...] tablet 1,000 mg Given 12/30/2021 12:02 PM SERVICE DESK ASSOCIATE 1,00 0 mg (TYLENOL) 1,000 mg, oral, Once, On Tue12/30/21 at 1215, For 1 dose, Pre-Op acetaminophen tablet 1,000 mg (TYLENOL) Given 01/01/2022 11:36 AM SERVICE DESK ASSOCIATE 1,000 mg 1,000 mg, oral, Every 6 hours, First dose on Tue12/30/21 at 1800 Given 01/01/2022 6:28 AM SERVICE DESK ASSOCIATE 1,000 mg Given 12/31/2021 11:51 PM SERVICE DESK ASSOCIATE 1,000 mg albuterol nebulizer solution 2.5 mg Given 12/31/2021 4:44 PM SERVICE DESK ASSOCIATE 2.5 mg 2.5 mg, nebulization, Every 6 hours PRN, wheezing, Starting on Tue12/30/21 at 1711, Albuterol nebs were interchanged for albuterol/levalbuterol MDI (same frequency) atorvastatin tablet 80 mg (LIPITOR) Given 12/31/2021 8:57 PM SERVICE DESK ASSOCIATE 80 mg 80 mg, oral, Daily at bedtime, First dose on Tue12/30/21 at 2100 Given 12/30/2021 9:55 PM SERVICE DESK ASSOCIATE 80 mg benzonatate capsule 100 mg (TESSALON PER LES) Given 01/01/2022 3:10 AM SERVICE DESK ASSOCIATE 100 mg 100 mg, oral, 3 times daily PRN, cough, Starting on Tue12/31/21 at 1702, Swallow whole. Do NOT crush, chew or open capsule. Given 12/31/2021 5:39 PM SERVICE DESK ASSOCIATE 100 mg bupivacaine PF 0.2 % 550 mL in NaCl New Bag 01/01/2022 3:15 PM SERVICE DESK ASSOCIATE 6 mL/hr 6 mL/hr 0.9% On-Q pain pump (CB004) 6 mL/hr, nerve catheter, Continuous, Starting on Tue01/01/22 at 1500, PACU & Post-Op, Location: Nerve Catheter Location, Nerve Catheter Location: Interscalene, Device: On-Q Pump bupivacaine PF 0.2 % in Rate/Dose Verify 01/01/2022 1:00 AM SERVICE DESK ASSOCIATE 6 mL/ hr 6 mL/hr NaCl 0.9% 341 mL infusion (MARCAINE) 6 mL/hr, nerve catheter, Continuous, Starting on Tue12/30/21 at 1600, PACU & Post-Op, Nerve Catheter Location: Interscalene, Device: Hospital Infusion Pump Rate/Dose Verify 12/31/2021 12:11 AM SERVICE DESK ASSOCIATE 6 mL/hr 6 mL/hr New Bag 12/30/2021 3:49 PM SERVICE DESK ASSOCIATE 6 mL/hr 6 mL/hr buPROPion XL 24 hr tablet 150 mg (WELLBUTRIN Given 02/2022 8:35 AM SERVICE DESK ASSOCIATE 150 mg XL) 150 mg, oral, Every morning, First dose on Tue12/31/21 at 0900, Swallow whole. Do NOT crush, chew, or split tablet. Given 12/31/2021 8:16 AM SERVICE DESK ASSOCIATE 150 mg calcium carbonate chewable tablet Given 12/31/2021 11: 46 PM SERVICE DESK ASSOCIATE 400 mg of calcium 400 mg of calcium (TUMS) 400 mg of calcium, oral, Every 2 hour PRN, indigestion, Starting on Tue12/30/21 at 1711, Doses listed are in mg of elemental calcium. Take with food. 500 mg calcium carbonate contains 200 mg of elemental calcium. Given 12/31/2021 9:15 PM SERVICE DESK ASSOCIATE 400 mg of calcium carboxymethylcellulose 0.5 % ophthalmic Given 01/01/2022 1:15 AM SERVICE DESK ASSOCIATE 2 drops solution 2 drop (REFRESH PLUS) 2 drop, both eyes, 4 times daily PRN, dry eyes, Starting on Tue12/30/21 at 1711 Given 12/31/2021 12:31 PM SERVICE DESK ASSOCIATE 2 drops Given 12/31/2021 12:23 AM SERVICE DESK ASSOCIATE 2 drops ceFAZolin in dextrose (iso-os) IVPB 2 New Bag 01/01/2022 6:27 AM SERVICE DESK ASSOCIATE 2 g 200 mL/hr g (ANCEF) 2 g, intravenous, at 200 mL/hr, Administer over 30 Minutes, Every 8 hours, First dose on Tue12/30/21 at 2200, Start within 8 hours of last IV dose., Drug Monitoring Program: Pharmacist to adjust medication dosing based on indication and drug clearance factors., Indications: Bone and/or joint infection New Bag 12/31/2021 10:32 PM SERVICE DESK ASSOCIATE 2 g 200 mL/hr New Bag 12/31/2021 2:21 PM SERVICE DESK ASSOCIATE 2 g 200 mL/hr cefTRIAXone in dextrose (iso-osm) IVPB New Bag 01/01/2022 2:38 PM SERVICE DESK ASSOCIATE 2 g 200 mL/hr 2 g (ROCEPHIN) 2 g, intravenous, at 200 mL/hr, Administer over 15 Minutes, Daily before lunch, First dose on Tue01/01/22 at 1345, Drug Monitoring Program: Pharmacist to adjust medication dosing based on indication and drug clearance factors., Indications: Bone and/or joint infection cetirizine tablet 10 mg (ZyrTEC) Given 01/01/2022 8:35 AM SERVICE DESK ASSOCIATE 10 mg 10 mg, oral, 2 times daily, First dose on Tue12/30/21 at 2100, Drug Monitoring Program: Pharmacist to adjust medication dosing based on indication and drug clearance factors. Given 12/31/2021 8:57 PM SERVICE DESK ASSOCIATE 10 mg Given 12/31/2021 8:16 AM SERVICE DESK ASSOCIATE 10 mg cholecalciferol (vitamin D3) tablet 25 m cg Given 01/01/2022 8:35 AM SERVICE DESK ASSOCIATE 25 mcg 25 mcg, oral, Daily, First dose on Tue12/31/21 at 0900, cholecalciferol (vitamin D3) orderable was interchanged for cholecalciferol (vitamin D3) tablet/capsule Given 12/31/2021 8:16 AM SERVICE DESK ASSOCIATE 25 mcg D5W infusion 10-250 mL/hr, intravenous, [...] 5 mg (VALIUM) Given 12/31/2021 12:31 PM SERVICE DESK ASSOCIATE 5 mg 5 mg, oral, 4 times daily PRN, muscle spasms, Starting on Tue12/30/21 at 2243 Given 12/31/2021 1:59 AM SERVICE DESK ASSOCIATE 5 mg diphenhydrAMINE capsule 25 mg (BENADRYL) 25 mg, oral, Daily PRN, itching, Starting on Tue 2 at 0854 diphenhydrAMINE capsule 75 mg (BENADRYL) Given 01/01/2022 8:49 AM SERVICE DESK ASSOCIATE 75 mg 75 mg, oral, Bedtime PRN, sleep, Starting on Tue12/30/21 at 1715 FLUoxetine capsule 80 mg (PROzac) Given 01/01/2022 8:34 AM SERVICE DESK ASSOCIATE 80 mg 80 mg, oral, Daily, First dose on Tue12/31/21 at 0900, FLUoxetine orderable was interchanged for FLUoxetine tablet/capsule Given 12/31/2021 8:16 AM SERVICE DESK ASSOCIATE 80 mg fluticasone furoate 100 mcg/actuation Given 01/01/2022 8:[address] 2 puffs inhaler 2 puff (ARNUITY ELLIPTA) 2 puff, inhalation, 2 times daily, First dose on Tue12/30/21 at 2100, fluticasone furoate 100 mcg was interchanged for fluticasone MDI 110 mcg Given 12/31/2021 9:04 PM SERVICE DESK ASSOCIATE 2 puffs Given 12/31/2021 8:17 AM SERVICE DESK ASSOCIATE 2 puffs granisetron (PF) injection 1 mg (KYTRIL) Given 12/30/2021 3:57 PM SERVICE DESK ASSOCIATE 1 mg 1 mg, intravenous, Once as needed, nausea, vomiting, Starting on Tue12/30/21 at 1546, For 1 dose, PACU (only), If patient does not respond to ondansetron or haloperidol. (order of antiemetic administration - ondansetron then haloperidol then granisetron) haloperidol lactate injection 1 mg (HALD OL) Given 12/30/2021 4:31 PM SERVICE DESK ASSOCIATE 1 mg 1 mg, intravenous, Every 6 [...] injection 0.2 mg Given 12/30/2021 4:17 PM SERVICE DESK ASSOCIATE 0.2 mg (DILAUDID) 0.2 mg, intravenous, Every 5 min PRN, moderate pain or score 4-6 of 10, severe pain or score 7-10 of 10, Starting on Tue12/30/21 at 1546, PACU (only), Up to maximum total dose of 2 mg Given 12/30/2021 4:07 PM SERVICE DESK ASSOCIATE 0.2 mg Given 12/30/2021 3:55 PM SERVICE DESK ASSOCIATE 0.2 mg HYDROmorphone (PF) injection 0.4 mg Given 01/01/2022 4:56 AM SERVICE DESK ASSOCIATE 0.4 mg (DILAUDID) 0.4 mg, intravenous, Every 2 hour PRN, severe pain or score 7-10 of 10, Starting on Tue12/30/21 at 1711, For 5 doses, May administer if pain is greater than 7 after scheduled and PRN regimen exhausted. If pain remains greater than 7, notify primary service. Given 12/31/2021 11:35 AM SERVICE DESK ASSOCIATE 0.4 mg Given 12/31/2021 4:14 AM SERVICE DESK ASSOCIATE 0.4 mg ipratropium-albuteroL 0.5-2.5 mg/3 mL nebulizer Given 01/01/2022 3:15 AM SERVICE DESK ASSOCIATE 3 mL solution 3 mL (DUONEB) 3 mL, nebulization, 4 times daily PRN, shortness of breath, wheezing, Starting on Tue12/30/21 at 1711 ketamine injection 10 mg (KETALAR) Given 12/30/2021 12:38 PM SERVICE DESK ASSOCIATE 10 mg 10 mg, intravenous, Once, On Tue12/30/21 at 1300, For 1 dose, Pre-Op lactated ringers Rate/Dose Change 01/01/2022 1:00 AM SERVICE DESK ASSOCIATE 20 mL/hr 20 mL/hr 75 mL/hr, intravenous, Continuous, Starting on Tue12/30/21 at 1715, Until patient has 500cc po intake New Bag 12/31/2021 11:46 PM SERVICE DESK ASSOCIATE 75 mL/hr 75 mL/hr Rate/Dose Change 12/31/2021 3:55 AM SERVICE DESK ASSOCIATE 20 mL/hr 20 mL/hr lactated ringers Continued from OR 12/30/2021 4:00 PM SERVICE DESK ASSOCIATE 75 mL/hr 75 mL/hr 75 mL/hr, intravenous, Continuous, Starting on Tue12/30/21 at 1600, PACU & Post-Op lamoTRIgine tablet 200 mg (LaMICtaL) Given 01/01/2022 8:34 AM SERVICE DESK ASSOCIATE 200 mg 200 mg, oral, 2 times daily, First dose on Tue12/30/21 at 2100 Given 12/31/2021 8:56 PM SERVICE DESK ASSOCIATE 200 mg Given 12/31/2021 8:16 AM SERVICE DESK ASSOCIATE 200 mg midazolam (PF) injection 1 mg (VERSED) Given 12/30/2021 12:38 PM SERVICE DESK ASSOCIATE 2 mg 1 mg, intravenous, Every 2 [...] 4 mg (ZOFRAN) Given 01/01/2022 1:16 AM SERVICE DESK ASSOCIATE 4 mg 4 mg, intravenous, Every 6 hours PRN, nausea, vomiting, Starting on Tue12/30/21 at 1711, For 48 hours, Reassess for nausea or vomiting after at least 10 minutes. If nausea or vomiting persists administer next ordered antiemetic medications (order for antiemetic medication administration ondansetron then haloperidol then promethazine). Given 12/31/2021 8:16 AM SERVICE DESK ASSOCIATE 4 mg oxyCODONE 12 hr tablet 20 mg (OxyCONTIN) Given 12/30/2021 12:35 PM SERVICE DESK ASSOCIATE 20 mg 20 mg, oral, Once, On Tue12/30/21 at 1300, For 1 dose, Pre-Op, Swallow whole. Do NOT crush, chew, or split tablet. oxyCODONE IR tablet 10 mg (ROXICODONE) Given 12/31/2021 10:43 AM SERVICE DESK ASSOCIATE 10 mg 10 mg, oral, Every 4 hours PRN, severe pain or score 7-10 of 10, Starting on Tue12/30/21 at 1536 Given 12/31/2021 6:19 AM SERVICE DESK ASSOCIATE 10 mg Given 12/31/2021 12:22 AM SERVICE DESK ASSOCIATE 10 mg oxyCODONE IR tablet 10 mg (ROXICODONE) Given 12/31/2021 2:21 PM SERVICE DESK ASSOCIATE 10 mg 10 mg, oral, Every 4 hours PRN, severe pain or score 7-10 of 10, Starting on Tue12/31/21 at 1415 oxyCODONE IR tablet 10 mg (ROXICODONE) Given 01/01/2022 2:38 PM SERVICE DESK ASSOCIATE 10 mg 10 mg, oral, Every 3 hours PRN, severe pain or score 7-10 of 10, Starting on Tue12/31/21 at 1745 Given 01/01/2022 11:35 AM SERVICE DESK ASSOCIATE 10 mg Given 01/01/2022 7:07 AM SERVICE DESK ASSOCIATE 10 mg oxyCODONE IR tablet 5 mg (ROXICODONE) 5 mg, oral, Every 3 hours PRN, moderate pain or score 4-6 of 10, Starting on Tue12/31/21 at 1745, If patient is >75 consider changing to 2.5-5mg scale pantoprazole DR tablet 40 mg (PROTONIX) Given 01/01/2022 3:46 PM SERVICE DESK ASSOCIATE 40 mg 40 mg, oral, 2 times daily before breakfast and dinner, First dose on Tue12/31/21 at 0700, pantoprazole 40 mg oral twice daily was interchanged for esomeprazole 20 or 40 mg oral twice daily Swallow whole. Do NOT crush, chew, or split tablet. Given 01/01/2022 6:29 AM SERVICE DESK ASSOCIATE 40 mg Given 12/31/2021 4:47 PM SERVICE DESK ASSOCIATE 40 mg pregabalin capsule 600 mg (LYRICA) Given 01/01/2022 8:34 AM SERVICE DESK ASSOCIATE 600 mg 600 mg, oral, 2 times daily, First dose on Tue12/30/21 at 2100 Given 12/31/2021 8:56 PM SERVICE DESK ASSOCIATE 600 mg Given 12/31/2021 8:15 AM SERVICE DESK ASSOCIATE 600 mg QUEtiapine tablet 50 mg (SEROquel) Given 12/31/2021 8:57 PM SERVICE DESK ASSOCIATE 50 mg 50 mg, oral, Daily at bedtime, First dose on Tue12/30/21 at 2100 Given 12/30/2021 9:55 PM SERVICE DESK ASSOCIATE 50 mg scopolamine base 1 mg Medication Applied 12/30/2021 12:02 PM 1 patch Behind Left Ear over 3 days 1 patch SERVICE DESK ASSOCIATE (TRANSDERM SCOP) 1 patch, transdermal, Administer over 72 Hours, Once as needed, nausea and vomiting, Starting on Tue12/30/21 at 1201, For 1 dose, Pre-Op, Contains 1.5 mg to deliver 1 mg/72 hours. sennosides-docusate sodium 8.6-50 mg per Given 01/01/2022 8:35 A M SERVICE DESK ASSOCIATE 1 tablet tablet 1 tablet (SENOKOT-S) 1 tablet, oral, 2 times daily, First dose on Tue12/30/21 at 2100, Do not give if patient has diarrhea. Given 12/31/2021 8:57 PM SERVICE DESK ASSOCIATE 1 tablet Given 12/31/2021 8:16 AM SERVICE DESK ASSOCIATE 1 tablet sodium chloride 0.9 % injection [...] injection 3 mL Given 12/31/2021 8:18 AM SERVICE DESK ASSOCIATE 3 mL 3 mL, intravenous, Every 12 hours scheduled, First dose on Tue12/30/21 at 2100, PACU & Post-Op, Peripheral Intravenous Catheter and Rapid Infusion Catheter, when no infusion to maintain patency Given 12/30/2021 9:53 PM SERVICE DESK ASSOCIATE 3 mL zonisamide capsule 300 mg (ZONEGRAN) Given 01/01/2022 8:35 AM SERVICE DESK ASSOCIATE 300 mg 300 mg, oral, 2 times daily, First dose on Tue12/30/21 at 2100, Swallow whole. Do NOT crush, chew or open capsule. Given 12/31/2021 8:57 PM SERVICE DESK ASSOCIATE 300 mg Given 12/31/2021 8:16 AM SERVICE DESK ASSOCIATE 300 mg documented in this encounter Active and Recently Administered Medications Times are shown in SERVICE DESK ASSOCIATE. Scheduled Medication Order 12/30/2021 12/31/2021 01/01/2022 acetaminophen tablet 1,000 mg (TYLENOL) (COMPLETED) 12 (Given - Provider: Manda Barnett R.N.) 1,000 mg, oral, Once, On Tue12/30/21 at 1215, For 1 dose, Pre-Op acetaminophen tablet 1,000 mg (TYLENOL) 1828 (Given - Provider: Sharifa GarciaN.) 0007 (Given - Provider: Viktoriya Givens R.N.)0619 (Given - Provider: Viktoriya A Chon, R.N.)1135 (Given - Provider: Maci Gonzalez R.N.)1738 (Given - Provider: Fanny Sifuentes RBrittonN.)2351 (Given - Provider: Leticia Pérez, R.N.) 0628 (Given - Provider: Viktoriya Givens R.N.)1136 (Given - Provider: Corrie Toscano R.N.) 1,000 mg, oral, Every 6 hours, First dose on Tue12/30/21 at 1800 atorvastatin tablet 80 mg (LIPITOR) 2154 (Given - Prov ider: Ezequiel Hernandez RBrittonN.) 2057 (Given - Provider: Sharifa KeenNBritton) 80 mg, oral, Daily at bedtime, First dose on Tue12/30/21 at 2100 buPROPion XL 24 hr tablet 150 mg (WELLBUTRIN XL) 0816 (Given - Provider: Maci Gonzalez R.N.) 0835 (Given - Provider: Corrie fall R.NBritton) 150 mg, oral, Every morning, First dose on Tue12/31/21 at 0900, Swallow whole. Do NOT crush, chew, or split tablet. ceFAZolin in dextrose (iso-os) IVPB 2 g (ANCEF) (CANCE LED) 2153 (New Bag - Provider: Ezequiel Hernandez R.N.) 0636 (New Bag - Provider: Viktoriya Givens RRebekah.)1421 (New Bag - Provider: Maci Gonzalez R.N.)2232 (New Bag - Provider: Fanny Sifuentes RRebekah.) 0627 (New Bag - Provider: Viktoriya dorado [...] 1419 (Given - Provider: Emre Rodriguez APRN, NAIL KEGGER) 2,000 mg (rounded from 1,747.5 mg = [...] 2152 (Given - Provide r: Ezequiel Hernandez RBrittonNBritton) 0816 (Given - Provider: Maci Gonzalez R.N.)2056 (Given - Provider: Fanny Sifuentes RBrittonNBritton) 0835 (Given - Provider: Corrie fall RBrittonNBritton) 10 mg, oral, 2 times daily, First dose o n Tue12/30/21 at 2100, Drug Monitoring Program: Pharmacist to adjust medication dosing based on indication and drug clearance factors. cholecalciferol (vitamin D3) tablet 25 mcg 0816 (Given - Provider: Maci Gonzalez R.N.) 0835 (Given - Provider: Corrie fall RBrittonNBritton) 25 mcg, oral, Daily, First dose on Tue at 0900, cholecalciferol (vitamin D3) orderable was interchanged for cholecalciferol (vitamin D3) tablet/capsule FLUoxetine capsule 80 mg (PROzac) 0816 ( Given - Provider: Maci Gonzalez R.N.) 0834 (Given - Provider: Corrie fall RBrittonNBritton) 80 mg, oral, Daily, First dose on 02/16 at 0900, FLUoxetine orderable was interchanged for FLUoxetine tablet/capsule fluticasone furoate 100 mcg/actuation inhaler 2 puff ( ARNUITY ELLIPTA) 2155 (Given - Provider: Ezequiel Hernandez R.N.) 0817 (Given - Provider: Maci Gonzalez R.N.)2103 (Given [...] Gonzalez R.N.)2055 (Given - Provider: Fanny Sifuentes RBetsy) 0834 (Given - Provider: Corrie fall RBrittonNBritton) 200 mg, oral, 2 times daily, First [...] mg (PROTONIX) 0636 (Given - Provider: Viktoriya A Chon, R.N.)1647 (Given - Provider: Fanny Sifuentes R.N.) 0629 (Given - Provider: Sharifa ConcepcionNBritton)1546 (Given - Provider: Christiano Keen.NBritton) 40 mg, oral, 2 times daily before breakf ast and dinner, First dose on Tue12/31/21 at 0700, pantoprazole 40 mg oral twice daily was interchanged for esomeprazole 20 or 40 mg oral twice daily Swallow whole. Do NOT crush, chew, or split tablet. pregabalin capsule 600 mg (LYRICA) 2154 (Given - Provi marquis: Ezequiel Hernandez R.N.) 08 (Given - Provider: Maic Gonzalez R.N.)2055 (Given - Provider: Sharifa KeenN.) 0834 (Given - Provider: Corrie fall R.N.) 600 mg, oral, 2 times daily, First dose on Tue12/30/21 at 2100 QUEtiapine tablet 50 mg (SEROquel) 2154 (Given - Provi marquis: Ezequiel Hernandez RBrittonN.) 2056 (Given - Provider: Christiano Keen.N.) 50 mg, oral, Daily at bedtime, First dose on Tue12/30/21 at 2100 sennosides-docusate sodium 8.6-50 mg per tablet 1 tabl et (SENOKOT-S) 2154 (Given - Provider: Sharifa GarciaN.) 08 (Given - Provider: Maci Gonzalez R.N.)2056 (Given - Provider: Sharifa KeenN.) 0835 (Given - Provider: Corrie Toscano RBrittonN.) [...] dropping tourniquet zonisamide capsule 300 mg (ZONEGRAN) 2154 (Given - Pro vider: Ezequiel Hernandez [...] 1515 (New Bag - Provider: Elvira Duncan RBrittonNBritton) 6 mL/hr, nerve catheter, Continuous, Sta [...] oral intake >500cc)2346 (New Bag - Provider: Jonny PérezSBrittonNBritton, R.N.) 0100 (Rate/Dose Change - Provider: Kem Givens R.N. - Comment: adequate oral intake) 75 mL/hr, intravenous, Continuous, Start ing on Tue12/30/21 at 1715, Until patient has 500cc po intake lactated ringers 1600 (Continued from OR - Provider: Adam Carmen R.NBritton) 75 mL/hr, intravenous, Continuous, Start ing [...] Tue12/30/21 at 1711 benzonatate capsule 100 mg (KEREN PERRIN) 1739 (Given - Provider: Fanny Sifuentes [...] 2 hour IL N, indigestion, Starting on Tue12/30/21 at 1711, Doses listed are in mg of elemental calcium. Take with food. 500 mg calcium carbonate contains 200 mg of elemental calcium. carboxymethylcellulose 0.5 % ophthalmic solution 2 drop (REF RESH PLUS) 0023 (Given - Provider: Viktoriya Givens RBetsy)1231 (Given - Provider: Maci Gonzalez R.N.) 0115 [...] 0159 (Give n - Provider: Viktoriya Givens RBrittonNBritton)1231 (Given - Provider: Maci Gonzalez RBrittonNBritton) 5 mg, oral, 4 times daily PRN, muscle spasms, Starting on 01/19 at 2243 diphenhydrAMINE capsule 25 mg (BENADRYL) 25 mg, oral, Daily PRN, itching, Starting on Tue01/01/22 at 0854 diphenhydrAMINE capsule 75 mg (BENADRYL) 0849 (Given - Provider: Corrie Toscano RRebekah. - Comment: for itching) 75 mg, oral, [...] (CANCELED) 1631 (Given - Provider: Conchita Carmen R.Milad) 1 mg, intravenous, Every 6 hours PRN, [...] (DILAUDID) (CANCEL ED) 1555 (Given - Provider: Sharifa DarlingN.)1607 (Given - Provider: Christiano Darling.German.)1617 (Given - Provider: Conchita Carmen R.N.) 0.2 [...] Viktoriya Givens R.N.)1135 (Given - Provider: Sharifa PaizNBritton) 0456 (Given - Provider: Viktoriya Givens R.N.) 0.4 mg, intravenous, Every 2 hour PRN, s evere pain or score 7-10 of 10, Starting on Tue12/30/21 at 1711, For 5 doses, May administer if pain is greater than 7 after scheduled and PRN regimen exhausted. I f pain remains greater than 7, notify primary service. ipratropium-albuteroL 0.5-2.5 mg/3 mL nebulizer solution 3 mL (Juice HARDY) 0315 (Given - Provider: Viktoriya Givens R.N.) [...] (CANCELED) 1999 (Given - Provider: Ezequiel Hernandez RBrittonNBritton) 0022 (Given - Provider: Viktoriya Givens R.N.)0619 [...] 1) 1739 (Given - Provider: Fanny Sifuentes RBrittonN.)2054 (Given - Provider: Fanny Sifuentes R.N.)2351 (Given - Provider: Rafal Waller M.S.Milad, R.N.) 0303 (Given - Provider: Viktoriya Givens R.N.)0707 (Given - Provider: Viktoriya Givens R.N.)1135 (Given - Provider: Sharifa CanasNBritton)1438 (Given - Provider: Corrie Toscano R.N.) 10 mg, oral, Every 3 hours PRN, severe p ain or score 7-10 of 10, Starting on Clementine 12/31/21 at 1745 oxyCODONE IR tablet 5 mg (ROXICODONE)(Linked Group 1) 1739 (See Alternative - Provider: Fanny Sifuentes RBrittonN.)2054 (See Alternative - Provider: Fanny Sifuentes R.N.)2351 (See Alternative - Provider: Leticia Pérez, R.N.) [...] over 3 days 1 patch (TRANSDERM S EXCEPTIONAL STUDENT EDUCATION TEACHER) (CANCELED) 1202 (Medication Applied - Provider: Manda [...] as of this encounter Care Teams Chicken Buyer Relationship Specialty Start Date End Date Elsewhere, Pcp PCP - General Family Medicine 12/25/21 documented as of this encounter
--- OUTSIDE RECORDS SUMMARY | 2022-08-14 17:50 | XMS_ITS | Encounter Summary ---
:1965 Author Organization [facility] Address [address] [place] [address] Care Team Providers Name Role Phone Elsewhere, Pcp Primary Care Provider Unavailable Encounter Details Date Type Department Care Team Description 01/01/2022 Episode Changes Section of Infectious [facility] in [place], (Work ) [place] [address] [place] [address] Social History Tobacco Use Types Packs/Day [...] you attend presybeterian or Patient refused 2021 presybeterian services? Do [...] Appointment Radiology Alfredo Herrera, OBrittonPBrittonAOmar [address] [place] [address] 09/06/2022 Office Visit Orthopedic Surgery Cyrus Polk M.D. [address] [place] [address] documented as of this encounter Visit Diagnoses Not on filedocumented in this encounter Additional Health Concerns Assessment Noted Time PHQ-9 Depression Total Score: 16 02/11/2021 12:00 AM C DT documented as of this encounter Care Teams Brigadier Relationship Specialty Start Date End Date Elsewhere, Pcp PCP - General Family Medicine 12/25/21 documented as of this encounter
--- OUTSIDE RECORDS SUMMARY | 2022-08-14 17:50 | XMS_ITS | Encounter Summary ---
:1965 Author Organization [facility] Address [address] [place] [address] Care Team Providers Name Role Phone Elsewhere, Pcp Primary Care Provider Unavailable Encounter Details Date Type Department Care Team Description 01/01/2022 Clinical Communication [facility] Sapna Dodge C.Ph.T. [address] [facility] [phone] [place], [place] (Work) [phone] Social History Tobacco Use [...] you attend denominational or Patient refused 2021 taoist services? Do [...] Admitting/Central Scheduling 09/06/2022 Appointment Radiology Alfredo Herrera O.PBrittonABritton-Araceli [address] [place] [address] 09/06/2022 Office Visit Orthopedic Surgery Cyrus Polk M.D. [address] [place] [address] documented as of this encounter Visit Diagnoses Not on filedocumented in this encounter Additional Health Concerns Assessment Noted Time PHQ-9 Depression Total Score: 16 02/11/2021 12:00 AM C DT documented as of this encounter Care Teams Engine Repair Supervisor Relationship Specialty Start Date End Date Elsewhere, Pcp PCP - General Family Medicine 12/25/21 documented as of this encounter
--- OUTSIDE RECORDS SUMMARY | 2022-08-14 17:50 | XMS_ITS | Encounter Summary ---
:1965 Author Organization [facility] Address [address] [place] [address] Care Team Providers Name Role Phone Elsewhere, Pcp Primary Care Provider Unavailable Encounter Details Date Type Department Care Team Description 01/05/2022 Clinical Communication Section of Infectious Ed [facility] in [place], , ROCK MASON, R.N. [place] 200 [facility] 200 [place] [phone] [phone] Social History Tobacco Use Types Packs/Day Years [...] you attend hinduism or Patient refused 2021 islam services? Do [...] Ward APRN, C.N.P. - 01/05/2022 2:17 PM ENGINEER AUTOMATED EQUIPMENT Left shoulder synovial fluid culture from 12/30 has been reported for growth of oxacillin sensitive Staphylococcus epidermidis. No change recommended to the patient's current regimen of ceftriaxone. NEER AUTOMATED EQUIPMENT Telephone Encounter - Laly Ward APRN, C.N.P. - 01/05/2022 2:17 PM ENGINEER AUTOMATED EQUIPMENT ----- Message from Su Greene, Pharm.D., R.Ph. sent at 01/05/2022 9:51 AM ENGINEER AUTOMATED EQUIPMENT ----- Patient with shoulder infection (with previous [...] changes please message [facility] PHARMACIST pool. If urgent, page [phone] M-F 9am-5 pm NEER AUTOMATED EQUIP[employer] documented in this encounter Plan of Treatment Upcoming Encounters Date Type Specialty Care Team Description 09/01/2022 Clinical Communication Admitting/Central Scheduling 09/06/2022 Appointment Radiology Alfredo Herrera O.P.A.-C. [address] [place] [phone] 09/06/2022 Office Visit Orthopedic Surgery Cyrus Polk M.D. [address] [place] [phone] documented as of this encounter Visit Diagnoses Not on filedocumented in this encounter Additional Health Concerns Assessment Noted Time PHQ-9 Depression Total Score: 16 02/11/2021 12:00 AM C DT documented as of this encounter Care Teams Holistic Specialist Relationship Specialty Start Date End Date Elsewhere, Pcp PCP - General Family Medicine 12/25/21 documented as of this encounter
--- OUTSIDE RECORDS SUMMARY | 2022-08-14 17:51 | XMS_ITS | Encounter Summary ---
:[address] [facility] Address [address] [place] [address] Care Team Providers Name Role Phone Unavailable Primary Care Provider Unavailable Reason for Visit Reason Comments Communication results Encounter Details Date Type Department Care Team Description 10/05/2021 Clinical Communication Department of Rossy Polk Orthopedic Surgery Cyrus Souza M.D. (results) in [address] 200 [facility] [phone] Social History Tobacco Use Types Packs/Day Years [...] you attend zoroastrianism or Patient refused 2021 buddhist services? Do [...] Cyrus Polk M.D. 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 Thank you AND DIE INSPECTOR Telephone Encounter - Cyrus Polk M.D. - 10/05/2021 11:37 AM CST Dx: left infected shoulder arthroplasty Procedure: left resection shoulder arthroplasty [id number], NESHA, and see me Surgery date: December 30 Thank you AND DIE INSPECTOR Telephone Encounter - Radha Suh - 10/05/2021 11:18 AM CST Ms. Mosquera calls for results of labs, CT and aspiration results ( She is disappointment no one has reached out to her and that she had to call for these) Please call her with results to date AND DIE INSPECTOR documented in this encounter Plan of Treatment Upcoming Encounters Date Type Specialty Care Team Description 09/01/2022 Clinical Communication Admitting/Central Scheduling 09/06/2022 Appointment Radiology Alfredo Herrera O.P.A.-C. [address] [place] [address] 09/06/2022 Office Visit Orthopedic Surgery Cyrus Polk M.D. [address] [place] [address] documented as of this encounter Visit Diagnoses Not on filedocumented in this encounter Additional Health Concerns Assessment Noted Time PHQ-9 Depression Total Score: 16 02/11/2021 12:00 AM C DT documented as of this encounter
--- OUTSIDE RECORDS SUMMARY | 2022-08-14 17:51 | XMS_ITS | Encounter Summary ---
:1965 Author Organization [facility] Address [address] [place] [address] Care Team Providers Name Role Phone Unavailable Primary Care Provider Unavailable Encounter Details Date Type Department Care Team Description 11/25/2021 Clinical Communication Department of Guillermo Patterson, Neurologic Surgery in [place], [place] [address] [place] [address] [address] [place] [phone] Social History Tobacco Use Types Packs/Day Years [...] be seen through ED, or local provider/neurology. IO DIRECTOR documented in this encounter Plan of Treatment Upcoming Encounters Date Type Specialty Care Team Description 09/01/2022 Clinical Communication Admitting/Central Scheduling 09/06/2022 Appointment Radiology Alfredo Herrera O.P.A.-C. [address] [place] [phone] 09/06/2022 Office Visit Orthopedic Surgery Cyrus Polk M.D. [address] [place] [phone] documented as of this encounter Visit Diagnoses Not on filedocumented in this encounter Additional Health Concerns Assessment Noted Time PHQ-9 Depression Total Score: 16 02/11/2021 12:00 AM C DT documented as of this encounter
--- OUTSIDE RECORDS SUMMARY | 2022-08-14 17:51 | XMS_ITS | Encounter Summary ---
:1965 Author Organization [facility] Address [address] [place] [address] Care Team Providers Name Role Phone Unavailable Primary Care Provider Unavailable Reason for Referral Outpatient (Routine) - Closed Specialty Diagnoses / Procedures Referred By Contact Refer red To Contact Anesthesiology Diagnoses Preoperative Exam Painful Total Joint Arthroplasty Initial (HCC) [facility] [address] [place] [phone] Referral ID Status Reason Start Date Expiration Date Visits Requ ested Visits Authorized [id number] Closed 10/13/2021 10/13/2022 1 1 RUMENTS SALES REPRESENTATIVE Outpatient (Routine) - Closed Specialty Diagnoses / Procedures Referred By Contact Refer red To Contact Orthopedic Surgery Diagnoses Preoperative Exam Painful Total Joint Arthroplasty Initial ([facility]) Alfredo Herrera [facility] Lebron.Fernando-CBritton 200 [place] [address] Referral ID Status Reason Start Date Expiration Date Visits Requ ested Visits Authorized [id number] Closed 10/13/2021 10/13/2022 1 1 RUMENTS SALES REPRESENTATIVE Reason for Visit Reason Comments pre op orders L verena Encounter Details Date Type Department Care Team Description 10/12/2021 Clinical Communication Department of Jam pre op orders ([facility] Lilian Alex) in [place] [address] [address] [place], [place] 200 [facility] [address] [place], [place] [phone] (Work) [phone] Social History Tobacco Use Types Packs/Day Years [...] and see me Surgery date: December 30 RUMENTS SALES REPRESENTATIVE documented in this encounter Plan of Treatment Upcoming Encounters Date Type Specialty Care Team Description 09/01/2022 Clinical Communication Admitting/Central Scheduling 09/06/2022 Appointment Radiology Alfredo Herrera O.P.A.-C. [address] [place] [phone] 09/06/2022 Office Visit Orthopedic Surgery Cyrus Polk M.D. [address] [place] [phone] Scheduled Referrals Name Type Priority Associated Diagnoses Order S [facility] Orthopedic Surgery Outpatient Referral Routine Preoperat lalo Exam Expected: Pre Op (clinic) Painful Total Joint 12/29 Arthroplasty Initial (Approx imate), (HCC) Expires: 10/12/2024 Preoperative Outpatient Referral Routine Preoperative Exam Expected: Evaluation NESHA Painful Total Joint 2021 consult (clinic) Arthroplasty Initial (Ap proximate), (HCC) Expires: 10/12/2024 documented as of this encounter Results (ABNORMAL) Basic Metabolic Panel (12/29/2021 11:34 AM INSTRUMENTS SALES REPRESENTATIVE) P athologist Signature Potassium, S 4.7 3.6 - 5.2 12/29/2021 DTL mmol/L 12:38 PM INSTRUMENTS SALES REPRESENTATIVE Sodium, S 143 135 - 145 12/29/2021 DTL mmol/L 12:38 PM INSTRUMENTS SALES REPRESENTATIVE Chloride, S 108 (H) 98 - 107 12/29/2021 DTL mmol/L 12:38 PM INSTRUMENTS SALES REPRESENTATIVE Bicarbonate, S 24 22 - 29 12/29/2021 DTL mmol/L 12:38 PM INSTRUMENTS SALES REPRESENTATIVE Anion Gap 11 7 - 15 12/29/2021 DTL 12:38 PM INSTRUMENTS SALES REPRESENTATIVE BUN (Blood Urea 15 6 - 21 12/29/2021 DTL Nitrogen), S mg/dL 12:38 PM INSTRUMENTS SALES REPRESENTATIVE Creatinine 0.83 0.59 - 12/29/2021 DTL 1.04 mg/dL 12:38 PM INSTRUMENTS SALES REPRESENTATIVE eGFR-Non 78 >=60 12/29/2021 DTL Black/ mL/min/BSA 12:38 PM INSTRUMENTS SALES REPRESENTATIVE Indonesian Comment: ----ADDITIONAL INFORMATION---- Estimated GFR calculated using the 2009 CKD_EPI creatinine equation. eGFR-Black/ 90 >=60 mL/min/BSA 2021 12:38 PM INSTRUMENTS SALES REPRESENTATIVE DTL Comment: ----ADDITIONAL INFORMATION---- Estimated GFR calculated using the 2009 CKD_EPI creatinine equation. Calcium, Total, S 9.1 8.6 - 10.0 mg/dL 12/29/2021 12:3 8 PM INSTRUMENTS SALES REPRESENTATIVE DTL Glucose, S 90 70 - 140 mg/dL 12/29/2021 12:38 PM INSTRUMENTS SALES REPRESENTATIVE DTL Specimen Anatomical Collection Method Collection Time Receive d Time (Source) Location / / Volume Laterality Blood (Blood, 12/29/2021 11:34 12/29/2021 Venous) AM INSTRUMENTS SALES REPRESENTATIVE 12:13 PM INSTRUMENTS SALES REPRESENTATIVE Alfredo Kamara LAB BLOOD ADD-ON Performing Organization Address City/State/ZIP Code Phon e Number [facility] - [address] [place] [phone] [facility] [place] [address] Laboratories-[address] Type and Screen (with reflex Antibody ID) (12/29/2021 11:34 AM INSTRUMENTS SALES REPRESENTATIVE) [facility] gist Method Time Signature ABORh A Neg Not applicable 12/29/2021 ETRM 12:59 PM INSTRUMENTS SALES REPRESENTATIVE Antibody CANCELED 12/29/2021 ETRM Screen 12:59 PM INSTRUMENTS SALES REPRESENTATIVE Comment: Result canceled by the theo marques Type & Screen Expiration 02/26/2022 23:59 12/29/19 22 12:59 PM INSTRUMENTS SALES REPRESENTATIVE ETRM Testing Location [place] DEFAULT 12/29/2021 11:58 AM INSTRUMENTS SALES REPRESENTATIVE ETRM Specimen Anatomical Collection Method Collection Time Receive d Time (Source) Location / / Volume Laterality Blood (Blood, 12/29/2021 11:34 12/29/2021 Venous) AM INSTRUMENTS SALES REPRESENTATIVE 11:58 AM INSTRUMENTS SALES REPRESENTATIVE Alfredo Kamara LAB BLOOD BANK TEST ORDERABL ES Performing Organization Address City/State/ZIP Code Phon e Number [facility] - 200 [place], [place] [address] [facility] [place] [address] Laboratories-[facility] 200 [facility] (ABNORMAL) CBC with Differential, Blood (12/29/2021 11:34 AM INSTRUMENTS SALES REPRESENTATIVE) [facility] Method Time Signature Hemoglobin 11.2 (L) 11.6 - 12/29/2021 DTL 15.0 g/dL 12:02 PM INSTRUMENTS SALES REPRESENTATIVE Hematocrit 34.1 (L) 35.5 - 12/29/2021 DTL 44.9 % 12:02 PM INSTRUMENTS SALES REPRESENTATIVE Erythrocytes 4.04 3.92 - 12/29/2021 DTL 5.13 12:02 PM INSTRUMENTS SALES REPRESENTATIVE x10(12)/L MCV 84.4 78.2 - 12/29/2021 DTL 97.9 fL 12:02 PM INSTRUMENTS SALES REPRESENTATIVE RBC Distrib Width 20.2 (H) 12.2 - 12/29/2021 DTL 16.1 % 12:02 PM INSTRUMENTS SALES REPRESENTATIVE Platelet Count 324 157 - 371 12/29/2021 DTL x10(9)/L 12:02 PM INSTRUMENTS SALES REPRESENTATIVE Leukocytes 5.1 3.4 - 9.6 12/29/2021 DTL x10(9)/L 12:02 PM INSTRUMENTS SALES REPRESENTATIVE Neutrophils 3.08 1.56 - 12/29/2021 DTL 6.45 12:02 PM INSTRUMENTS SALES REPRESENTATIVE x10(9)/L Lymphocytes 1.39 0.95 - 12/29/2021 DTL 3.07 12:02 PM INSTRUMENTS SALES REPRESENTATIVE x10(9)/L Monocytes 0.43 0.26 - 12/29/2021 DTL 0.81 12:02 PM INSTRUMENTS SALES REPRESENTATIVE x10(9)/L Eosinophils 0.17 0.03 - 12/29/2021 DTL 0.48 12:02 PM INSTRUMENTS SALES REPRESENTATIVE x10(9)/L Basophils 0.05 0.01 - 12/29/2021 DTL 0.08 12:02 PM INSTRUMENTS SALES REPRESENTATIVE x10(9)/L Specimen Anatomical Collection Method Collection Time Receive d Time (Source) Location / / Volume Laterality Blood (Blood, 12/29/2021 11:34 12/29/2021 Venous) AM INSTRUMENTS SALES REPRESENTATIVE 11:54 AM INSTRUMENTS SALES REPRESENTATIVE Alfredo Kamara LAB BLOOD ADD-ON Performing Organization Address City/[facility] [place] [facility] Phon e Number [facility] - [address] [address] Laboratories-[address] SARS Coronavirus 2, Molecular Detection, PCR, Varies Asymptomatic (12/29/2021 11:11 AM INSTRUMENTS SALES REPRESENTATIVE) [facility] Method Time Signature COVID-19, Swab, 12/29/2021 DTL PCR, Source Nasopharynx 4:19 PM INSTRUMENTS SALES REPRESENTATIVE COVID-19, Undetected Undetected 12/29/2021 DTL PCR, Result 4:19 PM INSTRUMENTS SALES REPRESENTATIVE Comment: SARS-CoV-2 RNA absent. This result does not rule out COVID-19 in the patient, as the sensitivity of the test depends o n the timing of the specimen collection and quality of the specimen. Result should be correlated with patient's history and clinical presentat ion. ----ADDITIONAL INFORMATION---- This RT-PCR test using the Spinal Kinetics SARS-Co V-2 Assay ( [employer].) performed on the Spinal Kinetics Two Module System has received Emergency Use Authorization (EUA) by the U.S. Food and Drug Administration, and is modified from the air shovel operator's instructions with a bridging study. Performance characteristics were verifie d by [facility] in a manner consistent with CLIA requirements. Visit the CDC website: https://www.cdc.g ov/coronavirus/ for the most recent guidelines on [facility] virus testing. Fact Sheet for Healthcare Providers: https://www.fda.gov/media/803789/downloa d Fact Sheet for Patients: https://www.fda.gov/media/719420/downloa d Specimen Anatomical Collection Method Collection Time Receive d Time (Source) Location / / Volume Laterality Varies 12/29/2021 11:11 12/29/2021 (Nasopharynx) AM INSTRUMENTS SALES REPRESENTATIVE 12:03 PM INSTRUMENTS SALES REPRESENTATIVE Alfredo Kamara LAB MICROBIOLOGY - GENERAL O RDERABLES Performing Organization Address City/[facility] [place] [facility] Phon e Number [facility] - 200 [place], [place] [address] [place] [address] Laboratories-[facility] [address] DX Shoulder Left 2+ Views (12/29/2021 10:30 AM INSTRUMENTS SALES REPRESENTATIVE) Anatomical Region Laterality Modality Upper Extremity, Shoulder, Musculoskeletal RST LOS, Left Digital Radiography Musculoskeletal ARZ LOS, Muskuloskeletal FLA LOS Specimen (Source) Anatomical Collection Method Collection Time Re ceived Time Location / / Volume Laterality 12/29/2021 10:53 AM INSTRUMENTS SALES REPRESENTATIVE Impressions 12/29/2021 10:57 AM INSTRUMENTS SALES REPRESENTATIVE Demineralization. Left shoulder arthroplasty revision to a reverse TSA. Developing lucency about the glenoi d component screws when compared back to 11/13/20, compatible with loosening. Pre sumed distal clavicle resection. Incompletely imaged instrumented spinal fusion from the upper cervical spine to the upper thoracic spine. Spinal cord st imulator. At least one old healed left posterior rib fracture. Narrative 12/29/2021 10:57 AM INSTRUMENTS SALES REPRESENTATIVE EXAM: ??DX SHOULDER LEFT 2+ VIEWS Procedure [...]
--- OUTSIDE RECORDS SUMMARY | 2022-08-14 17:51 | XMS_ITS | Encounter Summary ---
:1965 Author Organization [facility] Address [address] [place] [address] Care Team Providers Name Role Phone Unavailable Primary Care Provider Unavailable Reason for Visit Reason Comments Pain Appointment Request (Routine) - Closed Specialty Diagnoses / Procedures Referred By Contact Refer red To Contact Orthopedic Surgery Diagnoses Arthroplasty Total Shoulder Replacement Status Post Left David Cohn M.D. [address] [facility] [address] [place] [address] Referral ID Status Reason Start Date Expiration Date Visits Requ ested Visits Authorized [id number] Closed 09/04/2021 09/04/2022 1 1 Encounter Details Date Type Department Care Team Description 09/23/2021 Comprehensive Visit Department of Cyrus Polk Pain Shoulder Left Orthopedic Surgery Lilian Souza (Primary Dx) in [address] [place] [id number] [place], [place] [phone] (Work) [phone] Social History Tobacco Use Types Packs/Day Years [...] you attend hindu or Patient refused 2021 zoroastrianism services? Do you belong to any clubs or No 05/17/2022 organizations such as hindu groups, unions, fraEneedo or athletic groups, or school groups? How [...] Appointment Radiology Alfredo Herrera O.P.A.-C. [address] [place] [address] 09/06/2022 Office Visit Orthopedic Surgery Cyrus Polk M.D. [address] [place] [address] documented as of this encounter Visit Diagnoses Diagnosis Pain Shoulder Left - Primary documented in this encounter Additional Health Concerns Assessment Noted Time PHQ-9 Depression Total Score: 16 02/11/2021 12:00 AM C DT documented as of this encounter
--- OUTSIDE RECORDS SUMMARY | 2022-08-14 17:51 | XMS_ITS | Encounter Summary ---
:1965 Author Organization [facility] Address [address] [place] [address] Care Team Providers Name Role Phone Elsewhere, Pcp Primary Care Provider Unavailable Reason for Visit Outpatient (Routine) - Closed Specialty Diagnoses / Procedures Referred By Contact Refer red To Contact Anesthesiology Diagnoses Preoperative Exam Painful Total Joint Arthroplasty Initial (HCC) Alfredo Herrera [facility] O.P.A.-CBritton [address] [place] [phone] Referral ID Status Reason Start Date Expiration Date Visits Requ ested Visits Authorized [id number] Closed 10/13/2021 10/13/2022 1 1 Encounter Details Date Type Department Care Team Description 12/29/2021 Comprehensive Visit Preoperative Cayetano Herrera, O.P.A.-CBritton [address] [place] [phone] Preanesthetic Medical Exam (Primary Dx); Evaluation Center Etta Lyle M.D. 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 Do [...] Comments Blood Pressure 125/78 12/29/2021 1:21 PM HOSE TESTER Pulse 64 12/29/2021 1:21 PM HOSE TESTER Temperature 36.1 ??C (97 ??F) 12/29/2021 1:01 PM HOSE TESTER Respiratory Rate - - Oxygen Saturation 97% 12/29/2021 1:21 PM HOSE TESTER Inhaled Oxygen Concentration - - Weight 72.6 kg (160 lb 0.9 oz) 12/29/2021 1:01 PM HOSE TESTER Height 152 cm (4' 11.84) 12/29/2021 1:01 PM HOSE TESTER Body Mass Index 31.42 12/29/2021 1:01 PM HOSE TESTER documented in this encounter H&P Notes Etta [...] RCRI score: 1; 6% risk of , OR, or cardiac arrest OBJECTIVE OBJECTIVE PHYSICAL EXAMINATION [...] Due To Embolism Right Vertebral Artery ([facility]) # Aneurysm Cerebral Unruptured ([facility]) # Dissection Vertebral Artery ([facility]) # 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 Written and verbal instructions given on medication [...] Lyle M.D. PGY-3, Anesthesiology and Perioperative Medicine [facility] TESTER documented in this encounter Plan of Treatment Upcoming Encounters Date Type Specialty Care Team Description 09/01/2022 Clinical Communication Admitting/Central Scheduling 09/06/2022 Appointment Radiology Alfredo Herrera O.P.A.-C. [address] [place] [address] 09/06/2022 Office Visit Orthopedic Surgery Cyrus Polk M.D. [address] [place] [address] documented as of this encounter Visit Diagnoses [...] COVID19 Pending 12/29/2021 12/29/2021 12/29/2021 4:20 PM HOSE TESTER Assessment Noted Time PHQ-9 Depression Total Score: 16 02/11/2021 12:00 AM C DT documented as of this encounter Care Teams Tubing Oiler Relationship Specialty Start Date End Date Elsewhere, Pcp PCP - General Family Medicine 12/25/21 documented as of this encounter
--- OUTSIDE RECORDS SUMMARY | 2022-08-14 17:51 | XMS_ITS | Encounter Summary ---
:1965 Author Organization [facility] Address [address] [place] [address] Care Team Providers Name Role Phone Unavailable Primary Care Provider Unavailable Reason for Referral Outpatient (Routine) - Closed Specialty Diagnoses / Procedures Referred By Contact Refer red To Contact Diagnoses Painful Total Joint Arthroplasty Initial (HCC) Alfredo Herrera [place] Procedures US Major Joint Aspiration and or Injection Left O.P.A.-C. 200 [place] [address] Referral ID Status Reason Start Date Expiration Date Visits Requ ested Visits Authorized [id number] Closed 09/07/2021 09/07/2022 1 1 Outpatient (Routine) - Closed Specialty Diagnoses / Procedures Referred By Contact Refer red To Contact Diagnoses Painful Total Joint Arthroplasty Initial (HCC) Alfredo Herrera [place] Procedures US Musculoskeletal Shoulder Left O.P.A.-C. [address] [place] [address] Referral ID Status Reason Start Date Expiration Date Visits Requ ested Visits Authorized [id number] Closed 09/07/2021 09/07/2022 1 1 Reason for Visit Outpatient (Routine) - Closed Specialty Diagnoses / Procedures Referred By Contact Refer red To Contact Diagnoses Painful Total Joint Arthroplasty Initial (HCC) Alfredo Herrera [place] Procedures US Major Joint Aspiration and or Injection Left O.P.A.-C. [address] [place] [phone] Referral ID Status Reason Start Date Expiration Date Visits Requ ested Visits Authorized [id number] Closed 09/07/2021 09/07/2022 1 1 Encounter Details Date Type Department Care Team Description 09/25/2021 Hospital Encounter Department of Alfredo Herrera Total Joint Radiology, Lebron Gonzales.P.A.-CBritton Arthroplasty Initial Building, in [address] [place] [address] ([facility]) [facility] [phone] [place] [address] [place], [place] (Work) [phone] Social History Tobacco Use [...] you attend [employer] or Patient refused 2021 restoration services? Do [...] Appointment Radiology Alfredo Herrera O.P.A.-C. [address] [place] [phone] 09/06/2022 Office Visit Orthopedic Surgery Cyrus Polk M.D. [address] [place] [address] documented as of this encounter Procedures Procedure [...] [facility] are in the results section. ACID FAST [...] [facility]) are in the results section. BACTERIAL CULTURE, Routine 09/25/2021 1:48 Painful Total Resul ts for ANAEROBIC + SUSC PM CDT Joint Arthroplasty this procedure Initial ([facility]) are in the results section. documented in [...] Differential, Body Fluid (09/25/2021 1:48 PM CDT) [facility] Method Time Signature Fluid Type Left 09/25/2021 DHPM Shoulder 4:50 PM CDT Gross Slightly 09/25/2021 DHPM Appearance bloody 4:50 PM CDT Total 72786 /mcL 09/25/2021 DHPM Nucleated 4:50 PM CDT Cells Comment: ----REFERENCE VALUE---- Synovial: <150 /mcL Peritoneal: <500 /mcL Pleural: <500 /mcL Pericardial: <500 /mcL ----ADDITIONAL INFORMATION---- This test has been modified from the man ufacturer's instructions. Its performance characteri stics were determined by [facility] in a manner co [...] seen. Reviewed by: Tech 09/25/2021 7:38 PM DHPM CDT Specimen Anatomical Collection Method Collection Time Receive d Time (Source) Location / / Volume Laterality Fluid 09/25/2021 1:48 PM 3:27 CDT PM CDT Alfredo Kamara LAB BODY FLUIDS AND STOOLS O MARY Performing Organization Address City/[facility]/ZIP Code Phon e Number [facility] - [address] [place], [place] [address] [facility] [place] [place] [address] Laboratories-[facility] [address] Acid Fast Smear For Mycobacterium (09/25/2021 1:48 PM CDT) [facility] Method Time Signature Acid Fast Smear Negative. 09/26/2021 DTL For Mycobacterium 2:58 PM CDT Specimen Anatomical Collection Method Collection Time Receive d Time (Source) Location / / Volume Laterality Synovial Fluid, 09/25/2021 1:48 PM 2020 3:42 Left Shoulder CDT PM CDT Comment: Specimen Source Site: Fluid Narrative [facility] - [facility] - 09/26/2021 2:58 PM CDT Fungal and Mycobacteria specimens plated for culture, volume inadequate for optimal recovery. Alfredo Kamara LAB MICROBIOLOGY - GENERAL O MARY Performing Organization Address City/State/ZIP Code Phon e Number [facility] - [address] [place], [place] [address] [facility] [place] [place] [address] Laboratories-[facility] [address] Gram Stain (09/25/2021 1:48 PM CDT) [email or web address] gist Method Time Signature Gram Stain No [...] MEDICAL CENTER LABORATORIES - [address] [place], [place] [address] [facility] [place] [address] Laboratories-[facility] [address] (ABNORMAL) Bacterial Culture, Aerobic + Susc (09/25/2021 1:48 PM CDT) Component Value Ref Test Analysis Performed At [employer] Range Method Time Signature Bacterial STAPHYLOCOCCUS EPIDERMIDIS 09/30/2021 DT L Culture, One [place] 2:35 PM CDT Aerobic + (A) Susc Comment: Semi-Urgent Result. Semi-Urgent This is a semi-urgent result [facility] - ([place]EN[place]) [facility] Specimen Anatomical Collection Method Collection Time Receive d Time (Source) Location / / Volume Laterality Fluid (Synovial 09/25/2021 1:48 PM 2020 3:42 Fluid, Left CDT PM CDT Shoulder) Comment: Specimen Source Site: Fluid Narrative [facility] - [facility] - 09/30/2021 2:35 PM CDT Fungal [...] GENERAL O RDSONIA Performing Organization Address City/[facility] Phon e Number [facility] - [address] Bacterial Culture, Anaerobic + Susc (09/25/2021 1:48 PM CDT) [employer] Method Time Signature Bacterial No growth 10/09/2021 DTL Culture, after 14 7:41 AM GRIEF COUNSELOR Anaerobic + days of Susc incubation. Specimen Anatomical Collection Method Collection Time Receive d Time (Source) Location / / Volume Laterality Fluid (Synovial 09/25/2021 1:48 PM 2020 3:42 Fluid, Left CDT PM CDT Shoulder) Comment: Specimen Source Site: Fluid Narrative [facility] - 10/09/2021 7:41 AM GRIEF COUNSELOR Fungal and Mycobacteria specimens plated for culture, volume inadequate for optimal recovery. Alfredo SchmidtCBritton LAB MICROBIOLOGY - GENERAL O MARY Performing Organization Address [facility] Phon e Number [facility] - [address] (ABNORMAL) Broad Range Bacteria PCR+Sequencing (09/25/2021 1:48 PM CDT) Component Value Ref Test Analysis Performed At [employer] Method Time Signature Broad Range This test was developed and its performance characteri stics 10/06/2021 DTL Bacteria determined by [facility] in a manner consistent with 1:24 PM GRIEF COUNSELOR PCR+Sequencin CLIA requirements. This test has not been cleared or g approved by the U.S. Food and Drug Administration. (A) Broad Range STAPHYLOCOCCUS EPIDERMIDIS 10/06/2021 DTL Bacteria DNA detected 1:24 PM GRIEF COUNSELOR PCR+Sequencin (A) g Comment: Semi-Urgent Result. Semi-Urgent This is a semi-urgent result [facility] - () [facility] Specimen Anatomical Collection Method Collection Time Receive d Time (Source) Location / / Volume Laterality Fluid (Synovial 09/25/2021 1:48 PM 2020 3:42 Fluid, Left CDT PM CDT Shoulder) Comment: Specimen Source Site: Fluid Narrative [facility] - [facility] - 10/06/2021 1:24 PM GRIEF COUNSELOR Fungal and Mycobacteria specimens plated for culture, volume inadequate for optimal recovery. Alfredo Kamara LAB MICROBIOLOGY - GENERAL O MARY Performing Organization Address City/[facility] Phon e Number [facility] - [address] [place] [address] [facility]-[address] Crystal Identification, Synovial Fluid (09/25/2021 1:48 PM CDT) Analysis Performed At Path logist Time Signature Crystal ID, None seen None seen 09/25/2021 [facility] Synovial Fl 4:56 PM CDT Reviewed by: Tech 09/25/2021 [facility] 4:56 PM CDT Specimen Anatomical Collection Method Collection Time Receive d Time (Source) Location / / Volume Laterality Fluid (Synovial 09/25/2021 1:48 PM 2020 3:27 Fluid, Left CDT PM CDT Shoulder) Alfredo Kamara LAB BODY FLUIDS AND STOOLS O MARY Performing Organization Address City/[facility] Code Phon e Number [facility] - [address] [place], [place] [address] [place] [address] Laboratories-[address] Fungal Culture, Routine (09/25/2021 1:48 PM CDT) Patholo gist Method Time Signature Fungal No growth 10/20/2021 DTL Culture, after 24 1:01 AM GRIEF COUNSELOR Routine days of incubation. Specimen Anatomical Collection Method Collection Time Receive d Time (Source) Location / / Volume Laterality Fluid (Synovial 09/25/2021 1:48 PM 2020 3:42 Fluid, Left CDT PM CDT Shoulder) Comment: Specimen Source Site: Fluid Narrative [facility] - 10/20/2021 1:01 AM GRIEF COUNSELOR Fungal and Mycobacteria specimens plated for culture, volume inadequate for optimal recovery. Alfredo Kamara LAB MICROBIOLOGY - GENERAL O RDSONIA Performing Organization Address [facility] Phon e Number [facility] - [address] Mycobacterial Culture (09/25/2021 1:48 PM CDT) [facility] Method Time Signature Mycobacterial No growth 11/07/2021 DTL Culture after 42 1:03 AM GRIEF COUNSELOR days of incubation . Specimen Anatomical Collection Method Collection Time Receive d Time (Source) Location / / Volume Laterality Fluid (Synovial 09/25/2021 1:48 PM 2020 3:42 Fluid, Left CDT PM CDT Shoulder) Comment: Specimen Source Site: Fluid Narrative [facility] - 11/07/2021 1:03 AM GRIEF COUNSELOR Fungal and Mycobacteria specimens plated for culture, volume inadequate for optimal recovery. Alfredo Kamara LAB MICROBIOLOGY - GENERAL O MARY Performing Organization Address City/[facility] Phon e Number [facility] - [address] [place], [place] [address] documented in this encounter Visit Diagnoses [...]
--- OUTSIDE RECORDS SUMMARY | 2022-08-14 17:51 | XMS_ITS | Encounter Summary ---
:1965 Author Organization [facility] Address [address] [place] [address] Care Team Providers Name Role Phone Elsewhere, Pcp Primary Care Provider Unavailable Encounter Details Date Type Department Care Team Description 12/29/2021 Hospital Encounter Department of Alfredo Herrera ative Exam; Laboratory Medicine A, O.P.A.-C. Painful Total Joint Arthroplasty Initial (HCC) and Pathology, [address] [place] [address], in [place] [phone] [place] [phone] [place] [address] (Work) [place], [place] [phone] (Fax) [phone] Social History Tobacco Use Types Packs/Day Years [...] you attend anabaptism or Patient refused 2021 restorationism services? Do [...] THC multivit-min/iron/folic/ Take 1 tablet by 0 [id number] (HAIR, SKIN AND mouth daily. NAILS ADVANCED [...] Appointment Radiology Alfredo Herrera O.P.A.-C. [address] [place] [phone] 09/06/2022 Office Visit Orthopedic Surgery Cyrus Polk M.D. [address] [place] [phone] documented as of this encounter Procedures Procedure Name Priority Date/Time Associated Diagnosis Comme nts ANTIBODY SCREEN, Routine 12/29/2021 11:34 Results for this RBC AM DISPATCHER RADIOACTIVE WASTE DISPOSAL procedure are i n the results section. CBC WITH Routine 12/29/2021 11:34 Preoperative Ex am Results for this DIFFERENTIAL, B AM DISPATCHER RADIOACTIVE WASTE DISPOSAL Painful Total Joint proce dure are in Arthroplasty Initial the res ults ([facility]) section. TYPE AND SCREEN Routine 12/29/2021 11:34 Preoperative Ex am Results for this AM DISPATCHER RADIOACTIVE WASTE DISPOSAL Painful Total Joint procedur e are in Arthroplasty Initial the res ults (HCC) section. BASIC METABOLIC Routine 12/29/2021 11:34 Preoperative Ex am Results for this PANEL, S/P AM DISPATCHER RADIOACTIVE WASTE DISPOSAL Painful Total Joint procedur e are in Arthroplasty Initial the res ults (HCC) section. documented in this encounter Results Antibody Screen, RBC (12/29/2021 11:34 AM DISPATCHER RADIOACTIVE WASTE DISPOSAL) athologist Signature Antibody Negative Negative 12/29/2021 DTL Screen 12:59 PM DISPATCHER RADIOACTIVE WASTE DISPOSAL Specimen Anatomical Collection Method Collection Time Receive d Time (Source) Location / / Volume Laterality Blood 12/29/2021 11:34 12/29/2021 AM DISPATCHER RADIOACTIVE WASTE DISPOSAL 11:58 AM DISPATCHER RADIOACTIVE WASTE DISPOSAL Alfredo Kamara LAB BLOOD BANK TEST ORDERABL ES Performing Organization Address City/State/ZIP Code Phon e Number [facility] - [address] [place], [place] [address] [facility] [place] [address] Laboratories-[facility] [address] (ABNORMAL) Basic Metabolic Panel (12/29/2021 11:34 AM DISPATCHER RADIOACTIVE WASTE DISPOSAL) athologist Signature Potassium, S 4.7 3.6 - 5.2 12/29/2021 DTL mmol/L 12:38 PM DISPATCHER RADIOACTIVE WASTE DISPOSAL Sodium, S 143 135 - 145 12/29/2021 DTL mmol/L 12:38 PM DISPATCHER RADIOACTIVE WASTE DISPOSAL Chloride, S 108 (H) 98 - 107 12/29/2021 DTL mmol/L 12:38 PM DISPATCHER RADIOACTIVE WASTE DISPOSAL Bicarbonate, S 24 22 - 29 12/29/2021 DTL mmol/L 12:38 PM DISPATCHER RADIOACTIVE WASTE DISPOSAL Anion Gap 11 7 - 15 12/29/2021 DTL 12:38 PM DISPATCHER RADIOACTIVE WASTE DISPOSAL BUN (Blood Urea 15 6 - 21 12/29/2021 DTL Nitrogen), S mg/dL 12:38 PM DISPATCHER RADIOACTIVE WASTE DISPOSAL Creatinine 0.83 0.59 - 12/29/2021 DTL 1.04 mg/dL 12:38 PM DISPATCHER RADIOACTIVE WASTE DISPOSAL eGFR-Non 78 >=60 12/29/2021 DTL Black/ mL/min/BSA 12:38 PM DISPATCHER RADIOACTIVE WASTE DISPOSAL [place] Comment: ----ADDITIONAL INFORMATION---- Estimated GFR calculated using the 2009 CKD_EPI creatinine equation. eGFR-Black/ 90 >=60 mL/min/BSA 2021 12:38 PM DISPATCHER RADIOACTIVE WASTE DISPOSAL DTL Comment: ----ADDITIONAL INFORMATION---- Estimated GFR calculated using the 2009 CKD_EPI creatinine equation. Calcium, Total, S 9.1 8.6 - 10.0 mg/dL 12/29/2021 12:3 8 PM DISPATCHER RADIOACTIVE WASTE DISPOSAL DTL Glucose, S 90 70 - 140 mg/dL 12/29/2021 12:38 PM DISPATCHER RADIOACTIVE WASTE DISPOSAL DTL Specimen Anatomical Collection Method Collection Time Receive d Time (Source) Location / / Volume Laterality Blood (Blood, 12/29/2021 11:34 12/29/2021 Venous) AM DISPATCHER RADIOACTIVE WASTE DISPOSAL 12:13 PM DISPATCHER RADIOACTIVE WASTE DISPOSAL Alfredo Kamara LAB BLOOD ADD-ON Performing Organization Address City/[facility] Phon e Number [facility] - [address] [place] [address] Type and Screen (with reflex Antibody ID) (12/29/2021 11:34 AM DISPATCHER RADIOACTIVE WASTE DISPOSAL) [facility] gist Method Time Signature ABORh A Neg Not applicable 12/29/2021 ETRM 12:59 PM DISPATCHER RADIOACTIVE WASTE DISPOSAL Antibody CANCELED 12/29/2021 ETRM Screen 12:59 PM DISPATCHER RADIOACTIVE WASTE DISPOSAL Comment: Result canceled by the theo y. Type & Screen Expiration 02/26/2022 23:59 12/29/19 22 12:59 PM DISPATCHER RADIOACTIVE WASTE DISPOSAL ETRM Testing Location Ara DEFAULT 12/29/2021 11:58 AM DISPATCHER RADIOACTIVE WASTE DISPOSAL ETRM Specimen Anatomical Collection Method Collection Time Receive d Time (Source) Location / / Volume Laterality Blood (Blood, 12/29/2021 11:34 12/29/2021 Venous) AM DISPATCHER RADIOACTIVE WASTE DISPOSAL 11:58 AM DISPATCHER RADIOACTIVE WASTE DISPOSAL Alfredo Kamara LAB BLOOD BANK TEST ORDERABL ES Performing Organization Address [facility] Phon e Number [facility] [address] [place] [address] [facility] [place] [address] (ABNORMAL) CBC with Differential, Blood (12/29/2021 11:34 AM DISPATCHER RADIOACTIVE WASTE DISPOSAL) [facility] gist Method Time Signature Hemoglobin 11.2 (L) 11.6 - 12/29/2021 DTL 15.0 g/dL 12:02 PM DISPATCHER RADIOACTIVE WASTE DISPOSAL Hematocrit 34.1 (L) 35.5 - 12/29/2021 DTL 44.9 % 12:02 PM DISPATCHER RADIOACTIVE WASTE DISPOSAL Erythrocytes 4.04 3.92 - 12/29/2021 DTL 5.13 12:02 PM DISPATCHER RADIOACTIVE WASTE DISPOSAL x10(12)/L MCV 84.4 78.2 - 12/29/2021 DTL 97.9 fL 12:02 PM DISPATCHER RADIOACTIVE WASTE DISPOSAL RBC Distrib Width 20.2 (H) 12.2 - 12/29/2021 DTL 16.1 % 12:02 PM DISPATCHER RADIOACTIVE WASTE DISPOSAL Platelet Count 324 157 - 371 12/29/2021 DTL x10(9)/L 12:02 PM DISPATCHER RADIOACTIVE WASTE DISPOSAL Leukocytes 5.1 3.4 - 9.6 12/29/2021 DTL x10(9)/L 12:02 PM DISPATCHER RADIOACTIVE WASTE DISPOSAL Neutrophils 3.08 1.56 - 12/29/2021 DTL 6.45 12:02 PM DISPATCHER RADIOACTIVE WASTE DISPOSAL x10(9)/L Lymphocytes 1.39 0.95 - 12/29/2021 DTL 3.07 12:02 PM DISPATCHER RADIOACTIVE WASTE DISPOSAL x10(9)/L Monocytes 0.43 0.26 - 12/29/2021 DTL 0.81 12:02 PM DISPATCHER RADIOACTIVE WASTE DISPOSAL x10(9)/L Eosinophils 0.17 0.03 - 12/29/2021 DTL 0.48 12:02 PM DISPATCHER RADIOACTIVE WASTE DISPOSAL x10(9)/L Basophils 0.05 0.01 - 12/29/2021 DTL 0.08 12:02 PM DISPATCHER RADIOACTIVE WASTE DISPOSAL x10(9)/L Specimen Anatomical Collection Method Collection Time Receive d Time (Source) Location / / Volume Laterality Blood (Blood, 12/29/2021 11:34 12/29/2021 Venous) AM DISPATCHER RADIOACTIVE WASTE DISPOSAL 11:54 AM DISPATCHER RADIOACTIVE WASTE DISPOSAL Alfredo Kamara LAB BLOOD ADD-ON Performing Organization Address City/State/ZIP Code Phon e Number [facility] - [address] [place], [place] [address] [facility] [place] [address] Laboratories-[facility] [address] documented in this encounter Visit Diagnoses Diagnosis Preoperative Exam Painful Total Joint Arthroplasty Initial (HCC) documented in this encounter Additional Health Concerns Assessment Noted Time PHQ-9 Depression Total Score: 16 02/11/2021 12:00 AM C DT documented as of this encounter Care Teams Product Development Scientist Relationship Specialty Start Date End Date Elsewhere, Pcp PCP - General Family Medicine 12/25/21 documented as of this encounter
--- OUTSIDE RECORDS SUMMARY | 2022-08-14 17:51 | XMS_ITS | Encounter Summary ---
:1965 Author Organization [facility] Address [address] [place] [address] Care Team Providers Name Role Phone Unavailable Primary Care Provider Unavailable Reason for Visit Reason Comments Michel Encounter Details Date Type Department Care Team Description 11/25/2021 Clinical Communication Department of Chani Benjamin Neurologic Surgery in [place], [place], [place] Ph.D. [address] [facility] 200 [place] [phone] Social History Tobacco Use Types Packs/Day Years [...] you attend anabaptism or Patient refused 2021 latter-day services? Do [...] for your help. Boris Neurosurgery Appointment Office [phone] Please respond to the RST YEYO SCHEDULING Pool Thank You BORER documented in this encounter Plan of Treatment Upcoming Encounters Date Type Specialty Care Team Description 09/01/2022 Clinical Communication Admitting/Central Scheduling 09/06/2022 Appointment Radiology Alfredo Herrera O.P.A.-C. [address] [place] [phone] 09/06/2022 Office Visit Orthopedic Surgery Cyrus Polk M.D. [address] [place] [address] documented as of this encounter Visit Diagnoses Not on filedocumented in this encounter Additional Health Concerns Assessment Noted Time PHQ-9 Depression Total Score: 16 02/11/2021 12:00 AM C DT documented as of this encounter
--- OUTSIDE RECORDS SUMMARY | 2022-08-14 17:51 | XMS_ITS | Encounter Summary ---
:1965 Author Organization [facility] Address [address] [place] [address] Care Team Providers Name Role Phone Unavailable Primary Care Provider Unavailable Reason for Referral MRI/CAT/PET Scan (Routine) - Authorized Specialty Diagnoses / Procedures Referred By Contact Refer red To Contact Radiology Diagnoses Stroke Cerebrovascular Accident Personal History Occlusion Vertebral Artery With lnfarction (HCC) Robert Diehl M.D. [facility] Procedures MR Neck Angiogram without and with IV Contrast [address] [place] [address] Referral ID Status Reason Start Date Expiration Date Visits V isits Requested Authorized [id number] Authorized 12/10/2021 12/10/2022 1 1 GY SPECIALIST Outpatient (Routine) - Authorized Specialty Diagnoses / Procedures Referred By Contact Refer red To Contact Diagnoses Aneurysm Cerebral Unruptured (HCC) Robert Diehl M.D. [facility] Procedures PM Device interrogation (clinic) [address] [place] [address] Referral ID Status Reason Start Date Expiration Date Visits V isits Requested Authorized [id number] Authorized 12/10/2021 12/10/2022 1 1 GY SPECIALIST MRI/CAT/PET Scan (Routine) - Authorized Specialty Diagnoses / Procedures Referred By Contact Refer red To Contact Radiology Diagnoses Aneurysm Cerebral Unruptured (HCC) Robert Diehl M.D. [facility] Procedures MR Brain Angiogram without IV Contrast [address] [place] [address] Referral ID Status Reason Start Date Expiration Date Visits V isits Requested Authorized [id number] Authorized 12/10/2021 12/10/2022 1 1 GY SPECIALIST Reason for Visit Reason Comments Michel Encounter Details Date Type Department Care Team Description 12/10/2021 Clinical Communication Department of Robert Diehl W8B/Scharf Neurology in [place], [place] [address] [facility] [address] [place] [phone] Social History Tobacco Use Types Packs/Day Years [...] you attend hoahaoism or Patient refused 2021 christian services? Do [...] 2:58 PM CST Signed and thank you. GY SPECIALIST documented in this encounter Plan of Treatment Upcoming Encounters Date Type Specialty Care Team Description 09/01/2022 Clinical Communication Admitting/Central Scheduling 09/06/2022 Appointment Radiology Alfredo Herrera O.P.A.-C. [address] [place] [address] 09/06/2022 Office Visit Orthopedic Surgery Cyrus Polk M.D. [address] [place] [address] Scheduled Orders Name Type Priority Associated Diagnoses Order S chedule MR Brain Angiogram Imaging RAD - Routine Aneurysm Cerebral Exp ected: without IV Contrast (most inpatients Unruptured ([facility]) 05/03/2022, and all Expires: outpatients) 03/10/2023 PM Device Procedures Routine Aneurysm Cerebral Expected: interrogation Unruptured ([facility]) 12/29/2021 , (clinic) Expires: 03/10/2023 MR Neck Angiogram Imaging RAD - Routine Stroke Cerebrovascular Expected: without and with IV (most inpatients Accident Personal 05/03/2022 Contrast and all History (Approximate), outpatients) Occlusion Vertebral Expires: Artery With lnfarction 03/10 ([facility]) documented as of this encounter Visit Diagnoses Diagnosis Stroke Cerebrovascular Accident Personal History - Primary Aneurysm Cerebral Unruptured (HCC) Occlusion Vertebral Artery With lnfarcti on (HCC) documented in this encounter Additional Health Concerns Assessment Noted Time PHQ-9 Depression Total Score: 16 02/11/2021 12:00 AM C DT documented as of this encounter
--- OUTSIDE RECORDS SUMMARY | 2022-08-14 17:51 | XMS_ITS | Encounter Summary ---
:1965 Author Organization [facility] Address [address] [place] [address] Care Team Providers Name Role Phone Unavailable Primary Care Provider Unavailable Encounter Details Date Type Department Care Team Description 09/23/2021 Hospital Encounter Department of Alfredo Herrera Total Joint Radiology, Anh Gonzales Arthroplasty Initial Building, in [address] [place] [address] ([facility]) [facility] [phone] [place] [address] [place], [place] (Work) [phone] Social History Tobacco Use Types Packs/Day Years [...] you attend mandaen or Patient refused 2021 episcopalian services? Do [...] 09/06/2022 Appointment Radiology Alfredo Herrera O.P.A.-C. 200 [place] [phone] 09/06/2022 Office Visit Orthopedic Surgery Cyrus Polk M.D. 200 [place] [phone] documented as of this encounter Procedures Procedure [...]
--- OUTSIDE RECORDS SUMMARY | 2022-08-14 17:51 | XMS_ITS | Encounter Summary ---
:1965 Author Organization [facility] Address [address] [place] [address] Care Team Providers Name Role Phone Unavailable Primary Care Provider Unavailable Encounter Details Date Type Department Care Team Description 10/13/2021 Clinical Communication Preoperative [facility] in [place], [place] [address] [facility] [address] [place] [phone] Social History Tobacco Use Types Packs/Day Years [...] you attend adventism or Patient refused 2021 adventist services? Do [...] or the highest technical, or vocational p [employer] degree you have received? Sex Assigned at Date Recorded Female 03/01/2019 10:12 AM CDT documented as of this encounter Miscellaneous Notes Telephone Encounter - Umu Gan R.RStacy. 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 TIA ??? PFO ??? Hx of Arterial Thrombosis ??? 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 [address] [place] [phone] 09/06/2022 Office Visit Orthopedic Surgery Cyrus Polk M.D. [address] [place] [phone] documented as of this encounter Visit Diagnoses Not on filedocumented in this encounter Additional Health Concerns Assessment Noted Time PHQ-9 Depression Total Score: 16 02/11/2021 12:00 AM C DT documented as of this encounter
--- OUTSIDE RECORDS SUMMARY | 2022-08-14 17:51 | XMS_ITS | Encounter Summary ---
:1965 Author Organization [facility] Address [address] [place] [address] Care Team Providers Name Role Phone Unavailable Primary Care Provider Unavailable Encounter Details Date Type Department Care Team Description 09/23/2021 Hospital Encounter Department of Alfredo Herrera Total Joint Laboratory Medicine A, O.PEmilioCBritton Arthroplasty Initial and Pathology, [address] [place] [address] ([facility]) [facility] in [facility] [address] [place] [phone] 200 [facility] (Work) [place], [place] [phone] (Fax) [phone] Social History Tobacco Use Types Packs/Day Years [...] you attend anabaptism or Patient refused 2021 denominational services? Do [...] 09/06/2022 Appointment Radiology Alfredo Herrera O.P.A.-C. 200 [place] [phone] 09/06/2022 Office Visit Orthopedic Surgery Cyrus Polk M.D. 200 [place] [phone] documented as of this encounter Procedures Procedure Name Priority Date/Time Associated Diagnosis Comme nts SEDIMENTATION RATE, B Routine 09/23/2021 9:07 Painful Total Awilda int Results for this AM CDT Arthroplasty Initial procedu re are in ([facility]) the results section. CBC WITH DIFFERENTIAL, Routine [...] (ABNORMAL) Sedimentation Rate (09/23/2021 9:07 AM CDT) Patholo gist Method Time Signature Sedimentation 31 (H) 2 - 22 09/23/2021 DTL Rate, B mm/h 10:46 AM CDT Specimen Anatomical Collection Method Collection Time Receive d Time (Source) Location / / Volume Laterality Blood (Blood, 09/23/2021 9:07 AM 09/23/20 9:30 Venous) CDT AM CDT Alfredo SchmidtCBritton LAB BLOOD ADD-ON Performing Organization Address City/[facility] Code Phon e Number [facility] - [address] [place] [address] [facility] CRP (C-Reactive Protein) (09/23/2021 9:07 AM CDT) P athologist Signature C-Reactive <3.0 <=8.0 mg/L 09/23/2021 DTL Protein (CRP), 10:30 AM CDT S Specimen Anatomical Collection Method Collection Time Receive d Time (Source) Location / / Volume Laterality Blood (Blood, 09/23/2021 9:07 AM 09/23/20 9:57 Venous) CDT AM CDT Alfredo SchmidtCBritton LAB BLOOD ADD-ON Performing Organization Address City/[facility] Phon e Number [facility] - [address] [place] [address] Laboratories-[facility] [address] (ABNORMAL) CBC with Differential, Blood (09/23/2021 9:07 AM CDT) [facility] Method Time Signature Hemoglobin 10.1 (L) [...] [facility] [address] [place], [place] [address] [facility] [place] [address] Laboratories-[facility] [address] documented in this encounter Visit Diagnoses Diagnosis Painful Total Joint Arthroplasty Initial (HCC) documented in this encounter Additional Health Concerns Assessment Noted Time PHQ-9 Depression Total Score: 16 02/11/2021 12:00 AM C DT documented as of this encounter
--- OUTSIDE RECORDS SUMMARY | 2022-08-14 17:51 | XMS_ITS | Encounter Summary ---
:1965 Author Organization [facility] Address [address] [place] [address] Care Team Providers Name Role Phone Elsewhere, Pcp Primary Care Provider Unavailable Encounter Details Date Type Department Care Team Description 12/29/2021 Hospital Encounter Department of Alfredo Herrera ative Exam; Radiology, Clifton GonzalesPEmilioCBritton Painful Total Joint Arthroplasty Initial ([facility]) Building, in [address] [place] [phone] [place] [address] [place], [place] (Work) [phone] Social History Tobacco Use [...] you attend mandaeism or Patient refused 2021 samaritan services? Do [...] THC multivit-min/iron/folic/ Take 1 tablet by 0 bil043 (HAIR, SKIN AND mouth daily. NAILS ADVANCED [...] Appointment Radiology Alfredo Herrera O.P.A.-C. [address] [place] [address] 09/06/2022 Office Visit Orthopedic Surgery Cyrus Polk M.D. [address] [place] [address] documented as of this encounter Procedures Procedure Name Priority Date/Time Associated Comments Diagnosis DX SHOULDER LEFT RAD - Routine 12/29/2021 10:30 Preoperative E xam Results for this 2+ VIEWS (most inpatients AM STONE GLUER Painful Total Joint proc edure are in and all Arthroplasty the results outpatients) Initial (HCC) section. documented in this encounter Results DX Shoulder Left 2+ Views (12/29/2021 10:30 AM STONE GLUER) Anatomical Region Laterality Modality Upper Extremity, Shoulder, Musculoskeletal RST LOS, Left Digital Radiography Musculoskeletal ARZ LOS, Muskuloskeletal FLA LOS Specimen (Source) Anatomical Collection Method Collection Time Re ceived Time Location / / Volume Laterality 12/29/2021 10:53 AM STONE GLUER Impressions 12/29/2021 10:57 AM STONE GLUER Demineralization. Left shoulder arthroplasty revision to a reverse TSA. Developing lucency about the glenoi d component screws when compared back to 11/13/20, compatible with loosening. Pre sumed distal clavicle resection. Incompletely imaged instrumented spinal fusion from the upper cervical spine to the upper thoracic spine. Spinal cord st imulator. At least one old healed left posterior rib fracture. Narrative 12/29/2021 10:57 AM STONE GLUER EXAM: ??DX SHOULDER LEFT 2+ VIEWS Procedure [...] COVID19 Pending 12/29/2021 12/29/2021 12/29/2021 4:20 PM STONE GLUER Assessment Noted Time PHQ-9 Depression Total Score: 16 02/11/2021 12:00 AM C DT documented as of this encounter Care Teams Director Design Relationship Specialty Start Date End Date Elsewhere, Pcp PCP - General Family Medicine 12/25/21 documented as of this encounter
--- OUTSIDE RECORDS SUMMARY | 2022-08-14 17:51 | XMS_ITS | Encounter Summary ---
:1965 Author Organization [facility] Address [address] [place] [address] Care Team Providers Name Role Phone Elsewhere, Pcp Primary Care Provider Unavailable Reason for Visit Reason Comments Pre-op Exam Outpatient (Routine) - Closed Specialty Diagnoses / Procedures Referred By Contact Refer red To Contact Orthopedic Surgery Diagnoses Preoperative Exam Painful Total Joint Arthroplasty Initial (HCC) Alfredo Herrera [facility] O.P.A.-CBritton [address] [place] [phone] Referral ID Status Reason Start Date Expiration Date Visits Requ ested Visits Authorized [id number] Closed 10/13/2021 10/13/2022 1 1 Encounter Details Date Type Department Care Team Description 12/29/2021 Office Visit Department of Cyrus Polk Shoulde r Left (Primary Dx); Orthopedic Surgery in Lilian Souza Preoperative Exam; [place], [place] [address] [place] [address] Painful Total Joint Arthroplasty Initial ([facility]) [address] [place] [phone] Social History Tobacco Use Types Packs/Day Years [...] you attend bahai or Patient refused 2021 catholic services? Do [...] may involve the use of a medical charge entry specialist made by a company withvidya I or one of my partners have collaborated to design, develop, or improve orthopedic implants, instruments, or products. Both the [facility] and the individual surgeons involved receive royalty payments from the use of those specific devices at other institutions, but no royalties or any other payments are paid for the use of those devices with any [facility] patient. The clinical rationale for the use of those devices as well as the availability and applicability of alternative devices was reviewed. He understands that the final decision for the use of a specific medical charge entry specialist often is made at the time of surgery. All of his questions were answered; he understands and agrees with my approach to device selection and wants to proceed. 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 [address] [place] [address] 09/06/2022 Office Visit Orthopedic Surgery Cyrus Polk M.D. [address] [place] [address] documented as of this encounter Visit Diagnoses Diagnosis Pain Shoulder Left - Primary Preoperative Exam Painful Total Joint Arthroplasty Initial (HCC) documented in this encounter Additional Health Concerns Infection Onset Date Last Indicated Resolved Time COVID19 Pending 12/29/2021 12/29/2021 12/29/2021 4:20 PM FOREIGN LANGUAGES DEPARTMENT CHAIR Assessment Noted Time PHQ-9 Depression Total Score: 16 02/11/2021 12:00 AM C DT documented as of this encounter Care Teams Convention Services Director Relationship Specialty Start Date End Date Elsewhere, Pcp PCP - General Family Medicine 12/25/21 documented as of this encounter
--- OUTSIDE RECORDS SUMMARY | 2022-08-14 17:51 | XMS_ITS | Encounter Summary ---
:1965 Author Organization [facility] Address [address] [place] [address] Care Team Providers Name Role Phone Unavailable Primary Care Provider Unavailable Reason for Visit Outpatient (Routine) - Closed Specialty Diagnoses / Procedures Referred By Contact Refer red To Contact Neurology Robert Diehl M. D. [facility] [address] [place] [phone] Referral ID Status Reason Start Date Expiration Date Visits Requ ested Visits Authorized [id number] Closed 09/15/2020 09/15/2021 1 1 Encounter Details Date Type Department Care Team Description 11/18/2021 Virtual Visit Department of Robert Diehl Stroke Cere brovascular Neurology jimmy Celaya M.D. Accident Personal [place], [place] [address] [place] [address] History (Primary Dx) [address] [place] [phone] Social History Tobacco Use Types Packs/Day Years [...] you attend buddhist or Patient refused 2021 christianity services? Do [...] 19 pandemic patient not seen in a [id number]-[id number] manner. This is a 56-year-old woman with [...] antibiotics she has not been seen by [facility] Orthopedics Department who are planning a two [...] by: Robert Diehl M.D. 11/18/21 11:46 AM ROLLER PICKER Diagnosis Plan 1. Stroke Cerebrovascular Accident Personal History ER PICKER documented in this encounter Plan of Treatment Upcoming Encounters Date Type Specialty Care Team Description 09/01/2022 Clinical Communication Admitting/Central Scheduling 09/06/2022 Appointment Radiology Alfredo Herrera O.P.A.-C. [address] [place] [address] 09/06/2022 Office Visit Orthopedic Surgery Cyrus Polk M.D. [address] [place] [address] documented as of this encounter Visit Diagnoses Diagnosis Stroke Cerebrovascular Accident Personal History - Primary documented in this encounter Additional Health Concerns Assessment Noted Time PHQ-9 Depression Total Score: 16 02/11/2021 12:00 AM C DT documented as of this encounter
--- OUTSIDE RECORDS SUMMARY | 2022-08-14 17:51 | XMS_ITS | Encounter Summary ---
:1965 Author Organization [facility] Address [address] [place] [address] Care Team Providers Name Role Phone Unavailable Primary Care Provider Unavailable Reason for Referral MRI/CAT/PET Scan (Routine) - Closed Specialty Diagnoses / Procedures Referred By Contact Refer red To Contact Radiology Diagnoses Painful Total Joint Arthroplasty Initial ([facility]) Alfredo Herrera [facility] er Region Procedures CT Shoulder Left without IV Contrast O.P.A.-C. [address] [place] [phone] Referral ID Status Reason Start Date Expiration Date Visits Requ ested Visits Authorized [id number] Closed 09/07/2021 09/07/2022 1 1 Reason for Visit MRI/CAT/PET Scan (Routine) - Closed Specialty Diagnoses / Procedures Referred By Contact Refer red To Contact Radiology Diagnoses Painful Total Joint Arthroplasty Initial ([facility]) Alfredo Herrera [facility] er Region Procedures CT Shoulder Left without IV Contrast O.P.A.-C. [address] [place] [phone] Referral ID Status Reason Start Date Expiration Date Visits Requ ested Visits Authorized [id number] Closed 09/07/2021 09/07/2022 1 1 Encounter Details Date Type Department Care Team Description 09/25/2021 Hospital Encounter Department of Alfredo Herrera Painful Total Joint Radiology, Emily HillAOmar Arthroplasty Initial Building, in [address] [place] [address] ([facility]) [facility] [phone] [facility] [phone] [place], [place] (Work) [phone] [phone] Social History Tobacco Use Types Packs/Day Years [...] you attend sikhism or Patient refused 2021 yarsani services? Do [...] Appointment Radiology Alfredo Herrera O.P.A.-C. [address] [place] [address] 09/06/2022 Office Visit Orthopedic Surgery Cyrus Polk M.D. [address] [place] [address] documented as of this encounter Procedures Procedure [...]
--- OUTSIDE RECORDS SUMMARY | 2022-08-14 17:52 | XMS_ITS | Encounter Summary ---
:1965 Author Organization [facility] Address [address] [place] [address] Care Team Providers Name Role Phone Unavailable Primary Care Provider Unavailable Reason for Referral MRI/CAT/PET Scan (Routine) - Closed Specialty Diagnoses / Procedures Referred By Contact Refer red To Contact Radiology Diagnoses Pain Wrist Left Michael Noble Jr., [facility] Procedures MR Wrist Left without IV Contrast P.A.-C. [address] [place] [phone] Referral ID Status Reason Start Date Expiration Date Visits Requ ested Visits Authorized [id number] Closed 03/17/2021 03/17/2022 1 1 Reason for Visit MRI/CAT/PET Scan (Routine) - Closed Specialty Diagnoses / Procedures Referred By Contact Refer red To Contact Radiology Diagnoses Pain Wrist Left Michael Noble Jr., [facility] Procedures MR Wrist Left without IV Contrast P.A.-C. [address] [place] [phone] Referral ID Status Reason Start Date Expiration Date Visits Requ ested Visits Authorized [id number] Closed 03/17/2021 03/17/2022 1 1 Encounter Details Date Type Department Care Team Description 03/24/2021 Hospital Encounter Department of Michael Noble Wrist Left Radiology, Hema Perez Jr.ABritton-CBritton [facility], in [address] [place] [address] [place], [place] [phone] [place], [place] [phone] (Work) [phone] Social History Tobacco Use Types Packs/Day Years [...] you attend sabianism or Patient refused 2021 restorationism services? Do [...] pain. Max 4 tablets/day 0 08/23/2020 01/01/20 10 mg IR tablet Takes daily pregabalin [...] Appointment Radiology Alfredo Herrera O.P.A.-C. [address] [place] [address] 09/06/2022 Office Visit Orthopedic Surgery Cyrus Polk M.D. [address] [place] [address] documented as of this encounter Procedures Procedure [...]
--- OUTSIDE RECORDS SUMMARY | 2022-08-14 17:52 | XMS_ITS | Encounter Summary ---
:1965 Author Organization [facility] Address [address] [place] [address] Care Team Providers Name Role Phone Unavailable Primary Care Provider Unavailable Reason for Referral Outpatient (Routine) - Closed Specialty Diagnoses / Procedures Referred By Contact Refer red To Contact Diagnoses Pain Wrist Left Michael Noble Jr., [facility] Procedures PM Device interrogation (clinic) P.A.-C. [address] [place] [phone] Referral ID Status Reason Start Date Expiration Date Visits Requ ested Visits Authorized [id number] Closed 03/17/2021 03/17/2022 1 1 RI/CAT/PET Scan (Routine) - Closed Specialty Diagnoses / Procedures Referred By Contact Refer red To Contact Radiology Diagnoses Pain Wrist Left Michael Noble Jr., [facility] Procedures MR Wrist Left without IV Contrast P.A.-C. 200 [place], [place] [address] Referral ID Status Reason Start Date Expiration Date Visits Requ ested Visits Authorized [id number] Closed 03/17/2021 03/17/2022 1 1 Encounter Details Date Type Department Care Team Description 03/17/2021 Orders Only Department of Michael Noble Wris t Left Orthopedic Surgery in Tona Patel Jr. (Primary Dx) [place], [place] [address] [place] [phone] Social History Tobacco Use Types Packs/Day Years [...] you attend zoroastrianism or Patient refused 2021 islam services? Do [...] Appointment Radiology Alfredo Herrera O.P.A.-C. [address] [place] [address] 09/06/2022 Office Visit Orthopedic Surgery Cyrus Polk M.D. [address] [place] [phone] Scheduled Orders Name Type Priority Associated Diagnoses [...]
--- OUTSIDE RECORDS SUMMARY | 2022-08-14 17:52 | XMS_ITS | Encounter Summary ---
:1965 Author Organization [facility] Address [address] [place] [address] Care Team Providers Name Role Phone Unavailable Primary Care Provider Unavailable Reason for Visit Physical Therapy (Routine) - Closed Specialty Diagnoses / Procedures Referred By Contact Refer red To Contact Diagnoses Dissociation Scapholunate Left Dario Noel M.D. [facility] Procedures PT or OT eval and treat (first available) [address] [place] [phone] Referral ID Status Reason Start Date Expiration Date Visits Requ ested Visits Authorized [id number] Closed 06/08/2021 06/08/2022 99 99 Encounter Details Date Type Department Care Team Description 06/08/2021 Clinical Support Department of Physical German Noel M.D. [address] [place] [address] [phone] Pain Wrist Left (Primary Dx); Medicine and Veena Quevedo M.S., C.H.T., O.T. [address] [place] [address] [phone] Dissociation Scapholunate Left Rehabilitation in [place], [place] [address] [place] [phone] Social History Tobacco Use Types Packs/Day [...] you attend adventist or Patient refused 2021 judaism services? Do [...] (HCC) ??? Nicotine Dependence Unspecified ??? Other Advertising Rep Current Drug Therapy Past Surgical History: Procedure [...] the following home instruction handouts: Splint Receipt [id number]. Active Hand Exercises (Six Pack) GQ1547. Active Wrist Exercises [id number] Assessment Clinical Impression: The patient tolerated the [...] Appointment Radiology Alfredo Herrera O.P.A.-C. [address] [place] [address] 09/06/2022 Office Visit Orthopedic Surgery Cyrus Polk M.D. [address] [place] [address] documented as of this encounter Visit Diagnoses Diagnosis Pain Wrist Left - Primary Dissociation Scapholunate Left documented in this encounter Additional Health Concerns Assessment Noted Time PHQ-9 Depression Total Score: 16 02/11/2021 12:00 AM C DT documented as of this encounter
--- OUTSIDE RECORDS SUMMARY | 2022-08-14 17:52 | XMS_ITS | Encounter Summary ---
:1965 Author Organization [facility] Address [address] [place] [address] Care Team Providers Name Role Phone Unavailable Primary Care Provider Unavailable Reason for Referral Outpatient (Routine) - Closed Specialty Diagnoses / Procedures Referred By Contact Refer red To Contact Orthopedic Surgery Michael Noble [facility] , P.[facility].-C. [address] [place] [phone] Referral ID Status Reason Start Date Expiration Date Visits Requ ested Visits Authorized [id number] Closed 05/04/2021 05/04/2022 1 1 Scheduling Instructions Pulos Encounter Details Date Type Department Care Team Description 05/04/2021 Orders Only Department of Orthopedic Mirna Noble Surgery in [facility] , [facility].- C. [address] [place] [phone] (Wo rk) Social History Tobacco Use Types [...] you attend confucianist or Patient refused 2021 scientologist services? Do you belong to any clubs or No 05/17/2022 organizations such as confucianist groups, unions, fraAdvanova or athletic groups, or school groups? How [...] 09/06/2022 Appointment Radiology Alfredo Herrera O.P.A.-C. 200 [place] [phone] 09/06/2022 Office Visit Orthopedic Surgery Cyrus Polk M.D. 200 [place] [phone] Scheduled Referrals Name Type Priority Associated Order [...]
--- OUTSIDE RECORDS SUMMARY | 2022-08-14 17:52 | XMS_ITS | Encounter Summary ---
:1965 Author Organization [facility] Address [address] [place] [address] Care Team Providers Name Role Phone Unavailable Primary Care Provider Unavailable Reason for Visit Reason Comments Nicotine Dependence Encounter Details Date Type Department Care Team Description 07/24/2021 Clinical Communication Department of [facility], Carolyn Mccarthy cotine Dependence Nicotine M.S., Dependence, C.T.T.S., [facility], [facility]C. in [address] [place] [phone] [place], [place] [phone] (Work) [phone] Social History Tobacco Use Types Packs/Day Years [...] you attend baptism or Patient refused 2021 mandaeism services? Do [...] Admitting/Central Scheduling 09/06/2022 Appointment Radiology Alfredo Herrera O.PBrittonABritton-C. [address] [place] [address] 09/06/2022 Office Visit Orthopedic Surgery Cyrus Polk M.D. [address] [place] [address] documented as of this encounter Visit Diagnoses Not on filedocumented in this encounter Additional Health Concerns Assessment Noted Time PHQ-9 Depression Total Score: 16 02/11/2021 12:00 AM C DT documented as of this encounter
--- OUTSIDE RECORDS SUMMARY | 2022-08-14 17:52 | XMS_ITS | Encounter Summary ---
:1965 Author Organization [facility] Address [address] [place] [address] Care Team Providers Name Role Phone Unavailable Primary Care Provider Unavailable Reason for Referral Outpatient (Routine) - Closed Specialty Diagnoses / Procedures Referred By Contact Refer red To Contact Diagnoses Dissociation Scapholunate Left Michael Downs M.D. [facility] Procedures ORS Cast Room Visit [address] [place] [phone] Referral ID Status Reason Start Date Expiration Date Visits Requ ested Visits Authorized [id number] Closed 05/08/2021 05/08/2022 1 1 Outpatient (Routine) - Closed Specialty Diagnoses / Procedures Referred By Contact Refer red To Contact Diagnoses Dissociation Scapholunate Left Michael Downs M.D. [facility] Procedures ORS Cast Room Visit [address] [place] [phone] Referral ID Status Reason Start Date Expiration Date Visits Requ ested Visits Authorized [id number] Closed 05/08/2021 05/08/2022 1 1 Reason for Visit Reason Onset Date Comments Left Without Being Seen 07/17/2021 Outpatient (Routine) - Closed Specialty Diagnoses / Procedures Referred By Contact Refer red To Contact Orthopedic Surgery [facility] [address] [place] [phone] Referral ID Status Reason Start Date Expiration Date Visits Requ ested Visits Authorized [id number] Closed 05/04/2021 05/04/2022 1 1 Encounter Details Date Type Department Care Team Description 05/08/2021 Office Visit Department of [place], Dario Alejo, Dissocia tion Scapholunate Left (Primary Dx); Orthopedic Surgery in M.D. Procedure And Treatment Not Carried Out Due To Patient Leaving Prior To Being Seen By Health Care Provider [place], [place] [address] [facility] 200 [place] [phone] Social History Tobacco Use Types Packs/Day Years [...] Appointment Radiology Alfredo Herrera O.P.A.-C. [address] [place] [address] 09/06/2022 Office Visit Orthopedic Surgery Cyrus Polk M.D. [address] [place] [address] Scheduled Orders Name Type Priority Associated Diagnoses [...]
--- OUTSIDE RECORDS SUMMARY | 2022-08-14 17:52 | XMS_ITS | Encounter Summary ---
:1965 Author Organization [facility] Address [address] [place] [address] Care Team Providers Name Role Phone Unavailable Primary Care Provider Unavailable Reason for Referral Outpatient (Routine) - Closed Specialty Diagnoses / Procedures Referred By Contact Refer red To Contact Orthopedic Surgery Dario Noel M .D. [facility] 200 [place] [address] Referral ID Status Reason Start Date Expiration Date Visits Requ ested Visits Authorized [id number] Closed 06/08/2021 06/08/2022 1 1 Physical Therapy (Routine) - Closed Specialty Diagnoses / Procedures Referred By Contact Refer red To Contact Diagnoses Dissociation Scapholunate Left Dario Noel M.D. [facility] Procedures PT or OT eval and treat (first available) [address] [place] [phone] Referral ID Status Reason Start Date Expiration Date Visits Requ ested Visits Authorized [id number] Closed 06/08/2021 06/08/2022 99 99 Outpatient (Routine) - Closed Specialty Diagnoses / Procedures Referred By Contact Refer red To Contact Diagnoses Dissociation Scapholunate Left Michael Downs M.D. [facility] Procedures ORS Cast Room Visit [address] [place] [phone] Referral ID Status Reason Start Date Expiration Date Visits Requ ested Visits Authorized [id number] Closed 05/08/2021 05/08/2022 1 1 Reason for Visit Reason Comments Cast Check Follow-up Outpatient (Routine) - Closed Specialty Diagnoses / Procedures Referred By Contact Refer red To Contact Diagnoses Dissociation Scapholunate Left Michael Downs M.D. [facility] Procedures ORS Cast Room Visit [address] [place] [phone] Referral ID Status Reason Start Date Expiration Date Visits Requ ested Visits Authorized [id number] Closed 05/08/2021 05/08/2022 1 1 Encounter Details Date Type Department Care Team Description 06/08/2021 Hospital Encounter Department of Paul Downs M.D. [address] [place] [phone] Dissociation Orthopedic Surgery Dario Noel M.D. [address] [place] [phone] Scapholunate Left in [place], [place] [address] [place] [phone] Social History Tobacco Use Types Packs/Day Years [...] you attend moravian or Patient refused 2021 taoist services? Do [...] or the highest technical, or vocational p ojhn degree you have received? Sex Assigned at [...] 09/06/2022 Appointment Radiology Alfredo Herrera O.P.A.-C. 200 [place] [address] 09/06/2022 Office Visit Orthopedic Surgery Cyrus Polk M.D. 200 [place] [address] Scheduled Orders Name Type Priority Associated Diagnoses [...]
--- OUTSIDE RECORDS SUMMARY | 2022-08-14 17:52 | XMS_ITS | Encounter Summary ---
:[address] [facility] Address [address] [place] [address] Care Team Providers Name Role Phone Unavailable Primary Care Provider Unavailable Reason for Visit Reason Comments Nicotine Dependence Encounter Details Date Type Department Care Team Description 07/16/2021 Clinical Communication Department of [facility], Carolyn Mccarthy cotine Dependence Nicotine M.S., Dependence, C.T.T.S., [facility], [facility]C. in [address] [place] [phone] [place], [place] [phone] (Work) [phone] Social History Tobacco Use Types Packs/Day Years [...] you attend congregational or Patient refused 2021 congregational services? Do [...] Appointment Radiology Alfredo Herrera O.PBrittonABritton-C. [address] [place] [address] 09/06/2022 Office Visit Orthopedic Surgery Cyrus Polk M.D. [address] [place] [address] documented as of this encounter Visit Diagnoses Not on filedocumented in this encounter Additional Health Concerns Assessment Noted Time PHQ-9 Depression Total Score: 16 02/11/2021 12:00 AM C DT documented as of this encounter
--- OUTSIDE RECORDS SUMMARY | 2022-08-14 17:52 | XMS_ITS | Encounter Summary ---
:1965 Author Organization [facility] Address [address] [place] [address] Care Team Providers Name Role Phone Unavailable Primary Care Provider Unavailable Reason for Referral Outpatient (Routine) - Closed Specialty Diagnoses / Procedures Referred By Contact Refer red To Contact Diagnoses Dissociation Scapholunate Left Michael Downs M.D. [facility] Procedures ORS Cast Room Visit [address] [place] [address] Referral ID Status Reason Start Date Expiration Date Visits Requ ested Visits Authorized [id number] Closed 03/24/2021 03/24/2022 1 1 Outpatient (Routine) - Closed Specialty Diagnoses / Procedures Referred By Contact Refer red To Contact Diagnoses Dissociation Scapholunate Left Michael Downs M.D. [facility] Procedures ORS Cast Room Visit [address] [place] [address] Referral ID Status Reason Start Date Expiration Date Visits Requ ested Visits Authorized [id number] Closed 03/24/2021 03/24/2022 1 1 Reason for Visit Reason Comments Pain Appointment Request (Routine) - Closed Specialty Diagnoses / Procedures Referred By Contact Refer red To Contact Orthopedic Surgery Diagnoses Fracture Wrist Hand Closed Initial Referral ID Status Reason Start Date Expiration Date Visits Requ ested Visits Authorized [id number] Closed 03/16/2021 03/16/2022 1 1 Encounter Details Date Type Department Care Team Description 03/24/2021 Admin Visit Department of Dario Noel Dissocia tion Orthopedic Surgery in [place].D. Scapholunate Left [place], [place] 200 [facility] (Primary Dx) [address] [place] [phone] Social History Tobacco Use Types Packs/Day Years [...] Appointment Radiology Alfredo Herrera O.P.A.-C. [address] [place] [address] 09/06/2022 Office Visit Orthopedic Surgery Cyrus Polk M.D. [address] [place] [phone] Scheduled Orders Name Type Priority Associated Diagnoses [...] 70/60 degrees on the contr alateral side. ??Public Health Doctor strength of 10 kg compared to 23 [...] cast was applied by the kevin garcia tv technician - The patient is nonweightbearing bearin [...]
--- OUTSIDE RECORDS SUMMARY | 2022-08-14 17:52 | XMS_ITS | Encounter Summary ---
:1965 Author Organization [facility] Address [address] [place] [address] Care Team Providers Name Role Phone Unavailable Primary Care Provider Unavailable Reason for Visit Reason Comments pain medication Encounter Details Date Type Department Care Team Description 06/04/2021 Clinical Communication Department of [place], Dario willard medication Orthopedic Surgery Lilian Alejo in [place], [facility] [place], [place] [address] [place] [phone] [place], [place] [phone] (Work) [phone] Social History Tobacco Use Types Packs/Day Years [...] you attend gnosticism or Patient refused 2021 orthodoxy services? Do [...] meds/scripts. Patient would like a call - [phone] documented in this encounter Plan of Treatment Upcoming Encounters Date Type Specialty Care Team Description 09/01/2022 Clinical Communication Admitting/Central Scheduling 09/06/2022 Appointment Radiology Alfredo Herrera O.P.A.-C. [address] [place] [address] 09/06/2022 Office Visit Orthopedic Surgery Cyrus Polk M.D. [address] [place] [address] documented as of this encounter Visit Diagnoses Not on filedocumented in this encounter Additional Health Concerns Assessment Noted Time PHQ-9 Depression Total Score: 16 02/11/2021 12:00 AM C DT documented as of this encounter
--- OUTSIDE RECORDS SUMMARY | 2022-08-14 17:52 | XMS_ITS | Encounter Summary ---
:1965 Author Organization [facility] Address [address] [place] [address] Care Team Providers Name Role Phone Unavailable Primary Care Provider Unavailable Reason for Visit Reason Comments Pre-scheduling Questionnaire Hand Pre-Scheduling Qu estionnaire Encounter Details Date Type Department Care Team Description 03/16/2021 Clinical Department of Prescheduling, Pre-scheduli ng Communication Orthopedic Surgery Provider Question elizabeth ( in [place], Hand Pre-Sched uling [place] Questionnaire) [address] [place] [phone] Social History Tobacco Use Types Packs/Day Years [...] you attend jew or Patient refused 2021 sikh services? Do [...] this encounter Miscellaneous Notes Telephone Encounter - Minevra Reyes - 03/16/2021 3:34 PM CDT Hand Pre-Scheduling Questionnaire documented in this encounter Plan of Treatment Upcoming Encounters Date Type Specialty Care Team Description 09/01/2022 Clinical Communication Admitting/Central Scheduling 09/06/2022 Appointment Radiology Alfredo Herrera, CliftonPBrittonABritton-Araceli [address] [place] [phone] 09/06/2022 Office Visit Orthopedic Surgery Cyrus Polk M.D. [address] [place] [address] documented as of this encounter Visit Diagnoses Not on filedocumented in this encounter Additional Health Concerns Assessment Noted Time PHQ-9 Depression Total Score: 16 02/11/2021 12:00 AM C DT documented as of this encounter
--- OUTSIDE RECORDS SUMMARY | 2022-08-14 17:52 | XMS_ITS | Encounter Summary ---
:1965 Author Organization [facility] Address [address] [place] [address] Care Team Providers Name Role Phone Unavailable Primary Care Provider Unavailable Reason for Visit Reason Comments Nicotine Dependence Encounter Details Date Type Department Care Team Description 07/30/2021 Clinical Communication Department of [facility], Carolyn Mccarthy cotine Dependence Nicotine M.S., Dependence, C.T.T.S., [facility], L[facility]C. in [address] [place] [phone] [place], [place] [phone] (Work) [phone] Social History Tobacco Use Types Packs/Day Years [...] you attend shinto or Patient refused 2021 catholic services? Do [...] Appointment Radiology Alfredo Herrera O.PBrittonABritton-C. [address] [place] [address] 09/06/2022 Office Visit Orthopedic Surgery Cyrus Polk M.D. [address] [place] [address] documented as of this encounter Visit Diagnoses Not on filedocumented in this encounter Additional Health Concerns Assessment Noted Time PHQ-9 Depression Total Score: 16 02/11/2021 12:00 AM C DT documented as of this encounter
--- OUTSIDE RECORDS SUMMARY | 2022-08-14 17:52 | XMS_ITS | Encounter Summary ---
:1965 Author Organization [facility] Address [address] [place] [address] Care Team Providers Name Role Phone Unavailable Primary Care Provider Unavailable Reason for Visit MRI/CAT/PET Scan (Routine) - Canceled Specialty Diagnoses / Procedures Referred By Contact Refer red To Contact Radiology Diagnoses Aneurysm Cerebral Unruptured (HCC) Robert Diehl M.D. [facility] Procedures MR Brain Angiogram without IV Contrast [address] [place] [phone] Referral ID Status Reason Start Date Expiration Date Visits V isits Requested Authorized [id number] Canceled 09/15/2020 09/15/2021 1 1 Encounter Details Date Type Department Care Team Description 09/18/2021 Hospital Encounter Department of Robert Diehl ed (Patient: Radiology, Severiano Celaya M.D. Request) [facility], [address] [place], [place] [address] [place] [phone] [place], [place] [phone] (Work) [phone] Social History Tobacco Use Types Packs/Day Years [...] you attend hinduism or Patient refused 2021 denominational services? Do you belong to any clubs or No 05/17/2022 organizations such as hinduism groups, unions, fraStockezy or athletic groups, or school groups? How [...] Appointment Radiology Alfredo Herrera O.P.A.-C. [address] [place] [address] 09/06/2022 Office Visit Orthopedic Surgery Cyrus Polk M.D. [address] [place] [address] documented as of this encounter Visit Diagnoses Not on filedocumented in this encounter Additional Health Concerns Assessment Noted Time PHQ-9 Depression Total Score: 16 02/11/2021 12:00 AM C DT documented as of this encounter
--- OUTSIDE RECORDS SUMMARY | 2022-08-14 17:52 | XMS_ITS | Encounter Summary ---
:1965 Author Organization [facility] Address [address] [place] [address] Care Team Providers Name Role Phone Unavailable Primary Care Provider Unavailable Reason for Visit Reason Comments Pre-visit Intake Encounter Details Date Type Department Care Team Description 04/15/2021 Clinical Communication Department of Robert Diehl e-visit Intake Neurology in Lilian Celaya [place], [facility] [place], [place] [address] [place] [phone] [place], [place] [phone] (Work) [phone] Social History Tobacco Use Types Packs/Day Years [...] attend jehovah's witness or Patient refused 2021 muslim services? Do [...] Appointment Radiology Alfredo Herrera O.PBrittonAOmar [address] [place] [address] 09/06/2022 Office Visit Orthopedic Surgery Cyrus Polk M.D. [address] [place] [address] documented as of this encounter Visit Diagnoses Not on filedocumented in this encounter Additional Health Concerns Assessment Noted Time PHQ-9 Depression Total Score: 16 02/11/2021 12:00 AM C DT documented as of this encounter
--- OUTSIDE RECORDS SUMMARY | 2022-08-14 17:52 | XMS_ITS | Encounter Summary ---
:1965 Author Organization [facility] Address [address] [place] [address] Care Team Providers Name Role Phone Unavailable Primary Care Provider Unavailable Encounter Details Date Type Department Care Team Description 05/04/2021 Clinical Communication Department of Dario Noel , Orthopedic Surgery in [place], [place] [address] [place] [address] 200 [place] [phone] [phone] Social History Tobacco Use Types Packs/Day Years [...] you attend buddhism or Patient refused 2021 methodist services? Do [...] Appointment Radiology Alfredo Herrera O.P.A.-C. [address] [place] [address] 09/06/2022 Office Visit Orthopedic Surgery Cyrus Polk M.D. [address] [place] [address] documented as of this encounter Visit Diagnoses Not on filedocumented in this encounter Additional Health Concerns Assessment Noted Time PHQ-9 Depression Total Score: 16 02/11/2021 12:00 AM C DT documented as of this encounter
--- OUTSIDE RECORDS SUMMARY | 2022-08-14 17:52 | XMS_ITS | Encounter Summary ---
:1965 Author Organization [facility] Address [address] [place] [address] Care Team Providers Name Role Phone Unavailable Primary Care Provider Unavailable Reason for Referral Outpatient (Routine) - Closed Specialty Diagnoses / Procedures Referred By Contact Refer red To Contact Diagnoses Dissociation Scapholunate Left Michael Downs M.D. [facility] Procedures ORS Cast Room Visit [address] [place] [phone] Referral ID Status Reason Start Date Expiration Date Visits Requ ested Visits Authorized [id number] Closed 05/08/2021 05/08/2022 1 1 Reason for Visit Reason Comments Follow-up Outpatient (Routine) - Closed Specialty Diagnoses / Procedures Referred By Contact Refer red To Contact Diagnoses Dissociation Scapholunate Left Michael Downs M.D. [facility] Procedures ORS Cast Room Visit [address] [place] [phone] Referral ID Status Reason Start Date Expiration Date Visits Requ ested Visits Authorized [id number] Closed 05/08/2021 05/08/2022 1 1 Encounter Details Date Type Department Care Team Description 05/08/2021 Hospital Encounter Department of Paul Downs M.D. [address] [place] [phone] Dissociation Orthopedic Surgery Dario Noel M.D. [address] [place] [phone] Scapkimiunate Left in [place], [place] [address] [place] [address] Social History Tobacco Use Types Packs/Day Years [...] you attend anabaptism or Patient refused 2021 restoration services? Do [...] short-arm cast was applied by the castroom occupational health technician - The patient is nonweightbearing bearing [...] 09/06/2022 Appointment Radiology Alfredo Herrera O.P.A.-CBritton [address] [place] [phone] 09/06/2022 Office Visit Orthopedic Surgery Cyrus Polk M.D. [address] [place] [address] Scheduled Orders Name Type Priority Associated Diagnoses [...]
--- OUTSIDE RECORDS SUMMARY | 2022-08-14 17:52 | XMS_ITS | Encounter Summary ---
:1965 Author Organization [facility] Address [address] [place] [address] Care Team Providers Name Role Phone Unavailable Primary Care Provider Unavailable Reason for Referral Outpatient (Routine) - Closed Specialty Diagnoses / Procedures Referred By Contact Refer red To Contact Diagnoses Dissociation Scapholunate Left Michael Downs M.D. [facility] Procedures ORS Cast Room Visit [address] [place] [phone] Referral ID Status Reason Start Date Expiration Date Visits Requ ested Visits Authorized [id number] Closed 03/24/2021 03/24/2022 1 1 Reason for Visit Reason Comments Follow-up Outpatient (Routine) - Closed Specialty Diagnoses / Procedures Referred By Contact Refer red To Contact Diagnoses Dissociation Scapholunate Left Michael Downs M.D. [facility] Procedures ORS Cast Room Visit [address] [place] [phone] Referral ID Status Reason Start Date Expiration Date Visits Requ ested Visits Authorized [id number] Closed 03/24/2021 03/24/2022 1 1 Encounter Details Date Type Department Care Team Description 03/24/2021 Hospital Encounter Department of Paul Downs M.D. [address] [place] [address] [phone] Dissociation Orthopedic Surgery Dario Noel M.D. [address] [place] [phone] Scapkimiunate Left in [place], [place] [address] [place] [address] Social History Tobacco Use Types Packs/Day Years [...] you attend nondenominational or Patient refused 2021 anglican services? Do [...] with 70/60 degrees on the contralateral side. Oil Expeller Operator strength of 10 kg compared to 23 [...] short-arm cast was applied by the castroom fabrication technician - The patient is nonweightbearing bearing [...] 09/06/2022 Appointment Radiology Alfredo Herrera O.P.A.-C. [address] [place] [phone] 09/06/2022 Office Visit Orthopedic Surgery Cyrus Polk M.D. [address] [place] [phone] documented as of this encounter Procedures Procedure [...] 70/60 degrees on the contr alateral side. ??Oil Expeller Operator strength of 10 kg compared to 23 [...] short-arm cast was applied by the kevin stroom fabrication technician - The patient is nonweightbearing bearin [...]
--- OUTSIDE RECORDS SUMMARY | 2022-08-14 17:52 | XMS_ITS | Encounter Summary ---
:1965 Author Organization [facility] Address [address] [place] [address] Care Team Providers Name Role Phone Unavailable Primary Care Provider Unavailable Reason for Visit Reason Comments Med Refill Encounter Details Date Type Department Care Team Description 06/04/2021 Refill Department of Orthopedic Pulos, Dario Alejo M.D. Med Refill Surgery in [address] [phone] [place] [address] [place] [phone] Social History Tobacco Use Types Packs/Day Years [...] Appointment Radiology Alfredo Herrera O.PBrittonAOmar [address] [place] [address] 09/06/2022 Office Visit Orthopedic Surgery Cyrus Polk M.D. [address] [place] [address] documented as of this encounter Visit Diagnoses Not on filedocumented in this encounter Additional Health Concerns Assessment Noted Time PHQ-9 Depression Total Score: 16 02/11/2021 12:00 AM C DT documented as of this encounter
--- OUTSIDE RECORDS SUMMARY | 2022-08-14 17:52 | XMS_ITS | Encounter Summary ---
:1965 Author Organization [facility] Address 200 [place] [address] Care Team Providers Name Role Phone Unavailable Primary Care Provider Unavailable Reason for Referral Outpatient (Routine) - Closed Specialty Diagnoses / Procedures Referred By Contact Refer red To Contact Diagnoses Painful Total Joint Arthroplasty Initial (HCC) Alfredo Herrera [place] [facility] Procedures US Major Joint Aspiration and or Injection Left O.P.A.-C. 200 [place] [address] Referral ID Status Reason Start Date Expiration Date Visits Requ ested Visits Authorized [id number] Closed 09/07/2021 09/07/2022 1 1 Outpatient (Routine) - Closed Specialty Diagnoses / Procedures Referred By Contact Refer red To Contact Diagnoses Painful Total Joint Arthroplasty Initial (HCC) Alfredo Herrera [place] [facility] Procedures US Musculoskeletal Shoulder Left O.P.A.-C. 200 [place] [phone] Referral ID Status Reason Start Date Expiration Date Visits Requ ested Visits Authorized [id number] Closed 09/07/2021 09/07/2022 1 1 MRI/CAT/PET Scan (Routine) - Closed Specialty Diagnoses / Procedures Referred By Contact Refer red To Contact Radiology Diagnoses Painful Total Joint Arthroplasty Initial (HCC) Alfredo Herrera [place] Procedures CT Shoulder Left without IV Contrast O.P.A.-C. [address] [place] [address] Referral ID Status Reason Start Date Expiration Date Visits Requ ested Visits Authorized [id number] Closed 09/07/2021 09/07/2022 1 1 Reason for Visit Reason Comments Pre-visit Testing Orders L shldr - prev. TSA Encounter Details Date Type Department Care Team Description 09/07/2021 Clinical Communication Department of Jam, Pre- visit Testing Orthopedic Surgery Cyrus Souza M.D. Orders (L shldr - in [address] prev. TSA) [place], [place] [address] [place] [phone] [place], [place] [phone] (Work) [phone] Social History Tobacco Use Types Packs/Day Years [...] you attend orthodoxy or Patient refused 2021 holiness services? Do [...] Admitting/Central Scheduling 09/06/2022 Appointment Radiology Alfredo Herrera, Qamar. [address] [place] [address] 09/06/2022 Office Visit Orthopedic Surgery Cyrus Polk M.D. [address] [place] [address] documented as of this encounter Results US Major [...] 18-gauge Aspirated from joint: Approximately 3 mL lesa color fluid Complication: None. Blood loss: None. [...] PROCEDURES Mycobacterial Culture (09/25/2021 1:48 PM CDT) [facility] Method Time Signature Mycobacterial No growth 11/07/2021 DTL Culture after 42 1:03 AM DOMINATRIX days of incubation . Specimen Anatomical Collection Method Collection Time Receive d Time (Source) Location / / Volume Laterality Fluid (Synovial 09/25/2021 1:48 PM 2020 3:42 Fluid, Left CDT PM CDT Shoulder) Comment: Specimen Source Site: Fluid Narrative [facility] - 11/07/2021 1:03 AM DOMINATRIX Fungal and Mycobacteria specimens plated for culture, volume inadequate for optimal recovery. Alfredo Kamara LAB MICROBIOLOGY - GENERAL O RDERABLES Performing Organization Address City/State/ZIP Code Phon e Number [facility] - [address] [place] [address] [place] [address] Fungal Culture, Routine (09/25/2021 1:48 PM CDT) [facility] Method Time Signature Fungal No growth 10/20/2021 [facility] Culture, after 24 1:01 AM DOMINATRIX Routine days of incubation. Specimen Anatomical Collection Method Collection Time Receive d Time (Source) Location / / Volume Laterality Fluid (Synovial 09/25/2021 1:48 PM 2020 3:42 Fluid, Left CDT PM CDT Shoulder) Comment: Specimen Source Site: Fluid Narrative [facility] - 10/20/2021 1:01 AM DOMINATRIX Fungal and Mycobacteria specimens plated for culture, volume inadequate for optimal recovery. Alfredo Kamara LAB MICROBIOLOGY - GENERAL O RDBRADLEYBLES Performing Organization Address City/[facility]/ZIP Code Phon e Number [facility] - [address] Crystal Identification, Synovial Fluid (09/25/2021 1:48 PM CDT) Analysis Performed At [facility] Signature Crystal ID, None seen None seen 09/25/2021 [facility] Synovial Fl 4:56 PM CDT Reviewed by: Priti 09/25/2021 [facility] 4:56 PM CDT Specimen Anatomical Collection Method Collection Time Receive d Time (Source) Location / / Volume Laterality Fluid (Synovial 09/25/2021 1:48 PM 2020 3:27 Fluid, Left CDT PM CDT Shoulder) Alfredo Kamara LAB BODY FLUIDS AND STOOLS O RDERABLES Performing Organization Address City/State/ZIP Code Phon e Number [facility] - [address] (ABNORMAL) Broad Range Bacteria PCR+Sequencing (09/25/2021 1:48 PM CDT) Component Value Ref Test Analysis Performed At [facility] Method Time Signature Broad Range This test was developed and its performance characteri stics 10/06/2021 DTL Bacteria determined by [facility] in a manner consistent with 1:24 PM DOMINATRIX PCR+Sequencin CLIA requirements. This test has not been cleared or g approved by the U.S. Food and Drug Administration. (A) Broad Range STAPHYLOCOCCUS EPIDERMIDIS 10/06/2021 DTL Bacteria DNA detected 1:24 PM DOMINATRIX PCR+Sequencin (A) g Comment: Semi-Urgent Result. Semi-Urgent This is a semi-urgent result [facility] () [facility] Specimen Anatomical Collection Method Collection Time Receive d Time (Source) Location / / Volume Laterality Fluid (Synovial 09/25/2021 1:48 PM 2020 3:42 Fluid, Left CDT PM CDT Shoulder) Comment: Specimen Source Site: Fluid Narrative [facility] - 10/06/2021 1:24 PM DOMINATRIX Fungal and Mycobacteria specimens plated for culture, volume inadequate for optimal recovery. Alfredo Kamara LAB MICROBIOLOGY - GENERAL O RDSONIA Performing Organization Address City/[facility] Phon e Number [facility] - [address] Bacterial Culture, Anaerobic + Susc (09/25/2021 1:48 PM CDT) [facility] Method Time Signature Bacterial No growth 10/09/2021 DTL Culture, after 14 7:41 AM DOMINATRIX Anaerobic + days of Susc incubation. Specimen Anatomical Collection Method Collection Time Receive d Time (Source) Location / / Volume Laterality Fluid (Synovial 09/25/2021 1:48 PM 2020 3:42 Fluid, Left CDT PM CDT Shoulder) Comment: Specimen Source Site: Fluid Narrative [facility] - 10/09/2021 7:41 AM DOMINATRIX Fungal and Mycobacteria specimens plated for culture, volume inadequate for optimal recovery. Alfredo Kamara LAB MICROBIOLOGY - GENERAL O RDSONIA Performing Organization Address [facility] Phon e Number [facility] - [address] [place] [address] (ABNORMAL) Bacterial Culture, Aerobic + Susc (09/25/2021 1:48 PM CDT) Component Value Ref Test Analysis Performed At [facility] gist Range Method Time Signature Bacterial STAPHYLOCOCCUS EPIDERMIDIS 09/30/2021 DT L Culture, One [place] 2:35 PM CDT Aerobic + (A) Susc Comment: Semi-Urgent Result. Semi-Urgent This is a semi-urgent result [facility] - ([place]) [facility] Specimen Anatomical Collection Method Collection Time Receive d Time (Source) Location / / Volume Laterality Fluid (Synovial 09/25/2021 1:48 PM 2020 3:42 Fluid, Left CDT PM CDT Shoulder) Comment: Specimen Source Site: Fluid Narrative [facility] - 09/30/2021 2:35 PM CDT [...] Organization Address City/[facility]/ZIP [facility] Phon e Number [facility] - 200 [place], [place] [address] [facility] [place] [address] Laboratories-[address] Gram Stain (09/25/2021 1:48 PM CDT) [facility] gist Method Time Signature Gram Stain No [...] Performing Organization Address City/[facility] Phon e Number [facility] - 200 [place], [place] [address] [place] [address] Shoulder Left without IV Contrast (09/25/2021 [...] correlation with scheduled shoulder ultrasound/aspir ation. Alfredo Foote. IMG CT PROCEDURES DX Shoulder Left 2+ [...] (ABNORMAL) Sedimentation Rate (09/23/2021 9:07 AM CDT) [facility] Method Time Signature Sedimentation 31 (H) 2 - 22 09/23/2021 DTL Rate, B mm/h 10:46 AM CDT Specimen Anatomical Collection Method Collection Time Receive d Time (Source) Location / / Volume Laterality Blood (Blood, 09/23/2021 9:07 AM 09/23/20 9:30 Venous) CDT AM CDT Alfredo Kamara LAB BLOOD ADD-ON Performing Organization Address [facility] Phon e Number [facility] - [address] CRP (C-Reactive Protein) (09/23/2021 9:07 AM CDT) athologist Signature C-Reactive <3.0 <=8.0 mg/L 09/23/2021 DTL Protein (CRP), 10:30 AM CDT S Specimen Anatomical Collection Method Collection Time Receive d Time (Source) Location / / Volume Laterality Blood (Blood, 09/23/2021 9:07 AM 09/23/20 9:57 Venous) CDT AM CDT Alfredo Kamara LAB BLOOD ADD-ON Performing Organization Address [facility] Phon e Number [facility] - [address] (ABNORMAL) CBC with Differential, Blood (09/23/2021 9:07 AM CDT) [facility] Method Time Signature Hemoglobin 10.1 (L) [...] [facility] - [address] [place], [place] [address] [facility] [place] [address] Laboratories-[facility] [address] [...]
--- OUTSIDE RECORDS SUMMARY | 2022-08-14 17:53 | XMS_ITS | Encounter Summary ---
:1965 Author Organization [facility] Address [address] [place] [address] Care Team Providers Name Role Phone Unavailable Primary Care Provider Unavailable Reason for Visit Reason Comments Follow-up [facility] Patient Encounter Details Date Type Department Care Team Description 02/25/2021 Clinical Communication [facility] ([facility] Neurology jimmy Celaya M.D. Patient) [place], [facility] [address] [place], [place] [address] [place] [phone] [place], [place] [phone] (Work) [phone] Social History Tobacco Use Types Packs/Day Years [...] you attend scientology or Patient refused 2021 buddhist services? Do [...] so I advised she report to [facility] as soon as possible to be [...] Appointment Radiology Alfredo Herrera O.P.A.-C. [address] [place] [address] 09/06/2022 Office Visit Orthopedic Surgery Cyrus Polk M.D. [address] [place] [address] documented as of this encounter Visit Diagnoses Not on filedocumented in this encounter Additional Health Concerns Assessment Noted Time PHQ-9 Depression Total Score: 16 02/11/2021 12:00 AM C DT documented as of this encounter
--- OUTSIDE RECORDS SUMMARY | 2022-08-14 17:53 | XMS_ITS | Encounter Summary ---
:1965 Author Organization [facility] Address [address] [place] [address] Care Team Providers Name Role Phone Unavailable Primary Care Provider Unavailable Reason for Visit Reason Comments Nicotine Dependence Encounter Details Date Type Department Care Team Description 03/10/2021 Clinical Communication Department of [facility], Carolyn Mccarthy cotine Dependence Nicotine M.S., Dependence, C.T.T.S., [facility], L.P.C.C. in [address] [place] [phone] [place], [place] [phone] (Work) [phone] Social History Tobacco Use Types Packs/Day Years [...] you attend restorationism or Patient refused 2021 yazidi services? Do [...] Appointment Radiology Alfredo Herrera O.P.A.-C. [address] [place] [address] 09/06/2022 Office Visit Orthopedic Surgery Cyrus oPlk M.D. [address] [place] [address] documented as of this encounter Visit Diagnoses Not on filedocumented in this encounter Additional Health Concerns Assessment Noted Time PHQ-9 Depression Total Score: 16 02/11/2021 12:00 AM C DT documented as of this encounter
--- OUTSIDE RECORDS SUMMARY | 2022-08-14 17:53 | XMS_ITS | Encounter Summary ---
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 documented as of this encounter
--- OUTSIDE RECORDS SUMMARY | 2022-08-14 17:53 | XMS_ITS | Encounter Summary ---
:1965 Author Organization [facility] Address [address] [place] [address] Care Team Providers Name Role Phone Unavailable Primary Care Provider Unavailable Encounter Details Date Type Department Care Team Description 02/16/2021 Anesthesia Event Department of Radiology Liban Sunshine APRN, [employer] EM[employer]OYEE, DNAP [address] [place] [phone] in [facility] Deep Velasquez M.D. [address] [place] [phone] [place] [address] Anesthesia Record Procedure Summary Procedure Name Responsible Anesthesia Start Anesthesia Stop Anesthesiologist Time Time IR CEREBRAL Liban Sunshine APRN, 02/16/21 0825 02/16/21 1100 INTRACRANIAL ARTERY [employer]ANT EMPLOYEE, DNAP EMBOLIZATION Events Date Time Event Comment [...] h andoff to the receiving staff during [facility] we 1. Identified the patient [...] 1,000 units/mL injection 6,000 Units heparin standard 84524 Units/250 mL in 0.45 % Sodium C [...] 05/17/2022 organizations such as adventist groups, unions, frayouwho or athletic groups, or school groups? How [...] Room / Location: Department of Radiology in [place], [place] Anesthesia Start: 824 Anesthesia Stop: 1100 [...] Dr. Castillo. Location: Department of Radiology in [place], [place] Pertinent components of the patient's history [...] with patient /legal guardian or through an plaque maker. Risks/Benefits/Alternatives of Blood transfusion discussed with patient [...] Appointment Radiology Alfredo Herrera O.P.A.-C. [address] [place] [address] 09/06/2022 Office Visit Orthopedic Surgery Cyrus Polk M.D. [address] [place] [address] documented as of this encounter Visit Diagnoses [...]
--- OUTSIDE RECORDS SUMMARY | 2022-08-14 17:53 | XMS_ITS | Encounter Summary ---
:1965 Author Organization [facility] Address [address] [place] [address] Care Team Providers Name Role Phone Unavailable Primary Care Provider Unavailable Reason for Visit Reason Comments Vertigo and vision problems [facility] Encounter Details Date Type Department Care Team Description 02/18/2021 Clinical Communication Department of Fazal, Robert mendosa and vision Neurology in [place] Celaya problems ([facility]) [place], [facility] [address] [place], [place] [address] [place] [phone] [place], [place] [phone] (Work) [phone] Social History Tobacco Use Types Packs/Day Years [...] you attend uatsdin or Patient refused 2021 buddhism services? Do [...] 09/06/2022 Appointment Radiology Alfredo Herrera O.P.A.-C. 200 [place] [address] 09/06/2022 Office Visit Orthopedic Surgery Cyrus Polk M.D. 200 [place] [address] documented as of this encounter Visit Diagnoses Not on filedocumented in this encounter Additional Health Concerns Assessment Noted Time PHQ-9 Depression Total Score: 16 02/11/2021 12:00 AM C DT documented as of this encounter
--- OUTSIDE RECORDS SUMMARY | 2022-08-14 17:53 | XMS_ITS | Encounter Summary ---
:1965 Author Organization [facility] Address 200 [place] [address] Care Team Providers Name Role Phone Unavailable Primary Care Provider Unavailable Reason for Referral Outpatient (Routine) - Closed Specialty Diagnoses / Procedures Referred By Contact Refer red To Contact Neurological Surgery Jeannette Cote [place] [facility] Lilian 200 [place] [address] Referral ID Status Reason Start Date Expiration Date Visits Requ ested Visits Authorized [id number] Closed 02/17/2021 02/17/2022 1 1 Scheduling Instructions Please schedule with Chief A Neurosurger y Service (Dr. Suhail Benjamin). 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 [facility] Procedures CT Head Neck Angiogram with IV Contrast 200 [place] [address] Referral ID Status Reason Start Date Expiration Date Visits Requ ested Visits Authorized [id number] Closed 02/17/2021 02/17/2022 1 1 Encounter Details Date Type Department Care Team Description 02/17/2021 Orders Only Department of Jeannette Cote Cerebral Infarction Neurologic Surgery jimmy Souza M.D. Due To Embolism Right [place], [place] [address] [facility] Vertebral Artery (HCC) [address] [place], [place] (Primary Dx) [place] [address] [phone] Social History Tobacco Use Types Packs/Day Years [...] Appointment Radiology Alfredo Herrera O.P.A.-C. [address] [place] [address] 09/06/2022 Office Visit Orthopedic Surgery Cyrus Polk M.D. [address] [place] [address] Scheduled Referrals Name Type Priority Associated Order Schedule Diagnoses Neurological Surgery Outpatient Referral Routine Expected: office visit (clinic) 2020 (Approximate), Expires: 02/18/2024 documented as of this encounter Results CT Head Neck Angiogram with IV Contrast (03/12/2021 10:29 AM CDT) Anatomical Region Laterality Modality Head and Neck, Neuroradiology RST LOS, N/A C omputed Tomography, Computed Neuroradiology ARZ LOS, Neuroradiology T omography FLA [facility] Specimen (Source) Anatomical Collection Method [...] ane urysms. 3. 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 Otherwise [place] is intact. 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 Otherwise [place] is intact. Dolichoectasia of [...] ane urysms. 3. 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 Jeannette NIELSON [...]
--- OUTSIDE RECORDS SUMMARY | 2022-08-14 17:53 | XMS_ITS | Encounter Summary ---
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 [facility] Procedures CT Head Neck Angiogram with IV Contrast 200 [place], [place] [phone] Referral ID Status Reason Start Date Expiration Date Visits Requ ested Visits Authorized [id number] Closed 02/17/2021 02/17/2022 1 1 Encounter Details Date Type Department Care Team Description 03/12/2021 Hospital Encounter Department of Jeannette Cote ebral Infarction Radiology, Severiano Souza M.D. Due To Embolism Building, in 200 [facility] Vertebral [place], [place] Artery (HCC) [place] [address] [phone] [place], [place] (Work) [phone] [phone] Social History Tobacco Use Types Packs/Day Years [...] 09/06/2022 Appointment Radiology Alfredo Herrera O.PBrittonAOmar [address] [place] [phone] 09/06/2022 Office Visit Orthopedic Surgery Cyrus Polk M.D. [address] [place] [phone] documented as of this encounter Procedures Procedure [...] ane urysms. 3. Dolichoectasia of the cervical pr internship al carotid arteries bilaterally. 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 Otherwise [place] is intact. 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 Otherwise [place] is intact. Dolichoectasia of [...] ane urysms. 3. Dolichoectasia of the cervical pr internship al carotid arteries bilaterally. Jeannette NIELSON [...]
--- OUTSIDE RECORDS SUMMARY | 2022-08-14 17:53 | XMS_ITS | Encounter Summary ---
:1965 Author Organization [facility] Address [address] [place] [address] Care Team Providers Name Role Phone Unavailable Primary Care Provider Unavailable Reason for Visit Outpatient (Routine) - Closed Specialty Diagnoses / Procedures Referred By Contact Refer red To Contact Neurological Surgery Jeannette Cote [place] [facility] [place] M.D. [address] [place] [phone] Referral ID Status Reason Start Date Expiration Date Visits Requ ested Visits Authorized [id number] Closed 02/17/2021 02/17/2022 1 1 Encounter Details Date Type Department Care Team Description 03/12/2021 Office Visit Department of Gonzalez Benjamin Neurologic Surgery in [place] Jang, Cinthya castorena ([facility]) (Primary [place], [place] Ph.D. Dx) [address] [place] [address] [place] [phone] Social History Tobacco Use Types Packs/Day [...] you attend yarsanism or Patient refused 2021 mosque services? Do you belong to any clubs or No 05/17/2022 organizations such as yarsanism groups, unions, fraLLLer or athletic groups, or school groups? How [...] 09/06/2022 Appointment Radiology Alfredo Herrera O.P.A.-C. [address] [place] [phone] 09/06/2022 Office Visit Orthopedic Surgery Cyrus Polk M.D. [address] [place] [phone] documented as of this encounter Visit Diagnoses Diagnosis Dissection Vertebral Artery (HCC) - Prim monisha documented in this encounter Additional Health Concerns Assessment Noted Time PHQ-9 Depression Total Score: 16 02/11/2021 12:00 AM C DT documented as of this encounter
--- OUTSIDE RECORDS SUMMARY | 2022-08-14 17:53 | XMS_ITS | Encounter Summary ---
:1965 Author Organization [facility] Address [address] [place] [address] Care Team Providers Name Role Phone Unavailable Primary Care Provider Unavailable Encounter Details Date Type Department Care Team Description 03/11/2021 Clinical Communication Department of Ana Segura Orthopedic Surgery [place] [address] [place] [phone] Social History Tobacco Use Types Packs/Day Years [...] you attend latter-day or Patient refused 2021 roman catholic services? [...] Patient would like to be seen in [place]. Referral line to [place] provided to angela batista. Patient aware she will call for apptointment. Telephone Encounter - Jerica Gee L.P.N. - 03/13/2021 9:09 AM CDT Left message to call clinic back. Needs to see a hand surgeon. Telephone Encounter - Christal Abraham L.P.N. - 03/12/2021 3:21 PM CDT Left message for patient to call back. She can contact [place], [place], or sarath frye if she choses. Telephone Encounter - Clemente Schofield M.D. - 03/12/2021 11:23 AM CDT She should see a hand surgeon Telephone Encounter - Esperanza Stratton - 03/11/2021 9:33 AM CDT Reason for Communication: Patient is calling in stating that she is being referred to be seen for a brake in her LEFT hand. Patient is stating that [facility] in [facility] is requesting for patient to be seen by our orthopedic department. Patient is wanting to be seen in [place]. Unable to find any encounters regarding a [...] Appointment Radiology Alfredo Herrera O.P.A.-C. [address] [place] [address] 09/06/2022 Office Visit Orthopedic Surgery Cyrus Polk M.D. [address] [place] [address] documented as of this encounter Visit Diagnoses Not on filedocumented in this encounter Additional Health Concerns Assessment Noted Time PHQ-9 Depression Total Score: 16 02/11/2021 12:00 AM C DT documented as of this encounter
--- OUTSIDE RECORDS SUMMARY | 2022-08-14 17:53 | XMS_ITS | Encounter Summary ---
:[address] [facility] Address [address] [place] [address] Care Team Providers Name Role Phone Unavailable Primary Care Provider Unavailable Reason for Visit Reason Comments Communication Encounter Details Date Type Department Care Team Description 02/19/2021 Clinical Communication Department of Rossy Benjamin Neurologic Surgery in [place], [place] Ph.D. [address] [place] [address] 200 [place] [phone] [phone] Social History Tobacco Use Types Packs/Day Years [...] you attend latter-day or Patient refused 2021 hindu services? Do [...] Alfredo Herrera O.P.A.-C. [address] [place] [phone] 09/06/2022 Office Visit Orthopedic Surgery Cyrus Polk M.D. [address] [place] [phone] documented as of this encounter Visit Diagnoses Not on filedocumented in this encounter Additional Health Concerns Assessment Noted Time PHQ-9 Depression Total Score: 16 02/11/2021 12:00 AM C DT documented as of this encounter
--- OUTSIDE RECORDS SUMMARY | 2022-08-14 17:53 | XMS_ITS | Encounter Summary ---
:1965 Author Organization [facility] Address [address] [place] [address] Care Team Providers Name Role Phone Unavailable Primary Care Provider Unavailable Reason for Visit Reason Comments Post Hospital Follow-up Encounter Details Date Type Department Care Team Description 02/19/2021 Clinical Communication Department of [facility], Post Hospital Neurology in Monica Alvarado R.N. Follow-up [place], [place] [address] [place] [address] Social History Tobacco Use Types [...] you attend nondenominational or Patient refused 2021 confucianism services? Do [...] reports she has not yet picked up [id number] ASA daily and 80 mg Atorvastatin at [...] Appointment Radiology Alfredo Herrera O.P.AOmar [address] [place] [address] 09/06/2022 Office Visit Orthopedic Surgery Cyrus Polk M.D. [address] [place] [address] documented as of this encounter Visit Diagnoses Not on filedocumented in this encounter Additional Health Concerns Assessment Noted Time PHQ-9 Depression Total Score: 16 02/11/2021 12:00 AM C DT documented as of this encounter
--- OUTSIDE RECORDS SUMMARY | 2022-08-14 17:53 | XMS_ITS | Encounter Summary ---
:1965 Author Organization [facility] Address [address] [place] [address] Care Team Providers Name Role Phone Unavailable Primary Care Provider Unavailable Reason for Visit Reason Comments Pre-visit Intake Encounter Details Date Type Department Care Team Description 03/11/2021 Clinical Communication Department of Sourav Pre- visit Intake Neurologic Surgery [place] Jang, in [place], Ph.D. [place] [address] [place] [address] [phone] Social History Tobacco Use Types Packs/Day Years [...] encounter Miscellaneous Notes Addendum Note - Denise Mtz - 03/11/2021 10:14 AM CDT Addended by: DENISE MTZ on: 03/11/2021 10:14 AM Modules accepted: Orders documented in this encounter Plan of Treatment Upcoming Encounters Date Type Specialty Care Team Description 09/01/2022 Clinical Communication Admitting/Central Scheduling 09/06/2022 Appointment Radiology Alfredo Herrera O.P.A.-CBritton [address] [place] [address] 09/06/2022 Office Visit Orthopedic Surgery Cyrus Polk M.D. [address] [place] [address] documented as of this encounter Visit Diagnoses Not on filedocumented in this encounter Additional Health Concerns Assessment Noted Time PHQ-9 Depression Total Score: 16 02/11/2021 12:00 AM C DT documented as of this encounter
--- OUTSIDE RECORDS SUMMARY | 2022-08-14 17:54 | XMS_ITS | Encounter Summary ---
:1965 Author Organization [facility] Address [address] [place] [address] Care Team Providers Name Role Phone Unavailable Primary Care Provider Unavailable Encounter Details Date Type Department Care Team Description 02/02/2021 Orders Only Department of Neurology in Bisi Acevedo D.O. [place], [place] 200 [facility] 200 [place] [phone] [phone] (Wo rk) Social History Tobacco Use Types [...] Appointment Radiology Alfredo Herrera O.PBrittonAOmar [address] [place] [phone] 09/06/2022 Office Visit Orthopedic Surgery Cyrus Polk M.D. [address] [place] [phone] documented as of this encounter Visit Diagnoses Not on filedocumented in this encounter Additional Health Concerns Assessment Noted Time PHQ-9 Depression Total Score: 23 02/02/2021 11:[address] documented as of this encounter
--- OUTSIDE RECORDS SUMMARY | 2022-08-14 17:54 | XMS_ITS | Encounter Summary ---
:1965 Author Organization [facility] Address [address] [place] [address] Care Team Providers Name Role Phone Unavailable Primary Care Provider Unavailable Encounter Details Date Type Department Care Team Description 02/05/2021 Orders Only Pharmacy Prior Auth RO Elsewhere, Pcp [phone] Social History Tobacco Use Types Packs/Day Years [...] you attend amish or Patient refused 2021 hinduism services? Do [...] Appointment Radiology Alfredo Herrera O.PBrittonAOmar [address] [place] [address] 09/06/2022 Office Visit Orthopedic Surgery Cyrus Polk M.D. [address] [place] [address] documented as of this encounter Visit Diagnoses Not on filedocumented in this encounter Additional Health Concerns Infection Onset Date Last Indicated Resolved Time COVID19 Pending 02/10/2021 02/11/2021 02/11/2021 1:09 AM CDT Assessment Noted Time PHQ-9 Depression Total Score: 23 02/02/2021 11:[address] documented as of this encounter
--- OUTSIDE RECORDS SUMMARY | 2022-08-14 17:54 | XMS_ITS | Encounter Summary ---
:1965 Author Organization [facility] Address [address] [place] [address] Care Team Providers Name Role Phone Unavailable Primary Care Provider Unavailable Reason for Visit Reason Onset Date Comments saul med request 02/03/2021 Encounter Details Date Type Department Care Team Description 02/03/2021 Clinical Communication Department of [facility], trinidad Mccarthy med request Nicotine Dependence, M.S., C.T.T.S., [facility]. in [address] [place] [phone] [place], [place] [phone] (Work) [phone] Social History Tobacco Use Types Packs/Day Years [...] you attend anabaptism or Patient refused 2021 anabaptism services? 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 [address] [place] [phone] 09/06/2022 Office Visit Orthopedic Surgery Cyrus Polk M.D. [address] [place] [phone] documented as of this encounter Visit Diagnoses Not on filedocumented in this encounter Additional Health Concerns Assessment Noted Time PHQ-9 Depression Total Score: 23 02/02/2021 11:[address] documented as of this encounter
--- OUTSIDE RECORDS SUMMARY | 2022-08-14 17:54 | XMS_ITS | Encounter Summary ---
:1965 Author Organization [facility] Address [address] [place] [address] Care Team Providers Name Role Phone Unavailable Primary Care Provider Unavailable Encounter Details Date Type Department Care Team Description 02/03/2021 Orders Only Department of Neurology Leonides Kumar S troke ([facility]) (Primary in [facility] Lilian Dx) [address] [facility] 200 [place] [phone] Social History Tobacco Use Types Packs/Day Years [...] Appointment Radiology Alfredo Herrera O.P.A.-C. [address] [place] [address] 09/06/2022 Office Visit Orthopedic Surgery Cyrsu Polk M.D. [address] [place] [address] documented as of this encounter Visit Diagnoses Diagnosis Stroke (HCC) - Primary documented in this encounter Additional Health Concerns Assessment Noted Time PHQ-9 Depression Total Score: 23 02/02/2021 11:[address] documented as of this encounter
--- OUTSIDE RECORDS SUMMARY | 2022-08-14 17:54 | XMS_ITS | Encounter Summary ---
:1965 Author Organization [facility] Address [address] [place] [address] Care Team Providers Name Role Phone Unavailable Primary Care Provider Unavailable Encounter Details Date Type Department Care Team Description 01/07/2021 Anticoagulation Visit Department of Neurology Zuly Alex in [facility] raúl SkaggsNBritton 12[address] [facility] [address] [place] [phone] Social History Tobacco Use Types Packs/Day Years [...] you attend jewish or Patient refused 2021 muslim services? Do [...] is 2.28. Discussed with Dr. Ashley Castrejon ([phone]) who advises that the patient take 5 [...] OF PHONE CALL. Test results, symptom assessment. C [employer] documented in this encounter Plan of Treatment Upcoming Encounters Date Type Specialty Care Team Description 09/01/2022 Clinical Communication Admitting/Central Scheduling 09/06/2022 Appointment Radiology Alfredo Herrera O.P.A.-C. [address] [place] [address] 09/06/2022 Office Visit Orthopedic Surgery Jam, Cyrus W, M.D. [address] [place] [address] documented as of this encounter Procedures Procedure Name Priority Date/Time Associated Diagnosis Comme nts PROTHROMBIN TIME (PT), Routine 01/07/2021 Resul ts for this P procedure are i n the results section . documented in this encounter Results Prothrombin Time (PT) (01/07/2021) P athologist Signature EXT INR 2.28 OTHER (SPECIFY IN QUALITY WORKER) Specimen (Source) Anatomical Location Collection Method / Collectio n Time Received Time / Laterality Volume Blood (Blood, 01/07/2021 Venous) Narrative This result has an attachment that is no t available. Historical Provider LAB BLOOD ADD-ON Performing Organization Address City/State/ZIP Code Phon e Number OTHER (SPECIFY IN QUALITY WORKER) OTHER (SPECIFY IN QUALITY WORKER) N/A documented in this encounter Visit Diagnoses Not on filedocumented in this encounter Additional Health Concerns Assessment Noted Time PHQ-9 Depression Total Score: 5 04/05/2019 8:00 AM CDT documented as of this encounter
--- OUTSIDE RECORDS SUMMARY | 2022-08-14 17:54 | XMS_ITS | Encounter Summary ---
:1965 Author Organization [facility] Address [address] [place] [address] Care Team Providers Name Role Phone Unavailable Primary Care Provider Unavailable Encounter Details Date Type Department Care Team Description 02/11/2021 Ancillary Procedure Department of Radiology Ridge Vega in [facility] raúl Quintana 200 [facility] 200 [place] [phone] (Wo rk) Social History Tobacco Use Types [...] Appointment Radiology Alfredo Herrera O.P.A.-C. [address] [place] [address] 09/06/2022 Office Visit Orthopedic Surgery Cyrus Polk M.D. [address] [place] [phone] documented as of this encounter Procedures Procedure [...] bilateral thalami (series 3 image 36), bilateral INSTRUCTIONAL WRITER 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 bilateral thalami (series 3 image 36), bilateral INSTRUCTIONAL WRITER 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 bilateral thalami (series 3 image 36), bilateral INSTRUCTIONAL WRITER 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 bilateral thalami (series 3 image 36), bilateral INSTRUCTIONAL WRITER 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 bilateral thalami (series 3 image 36), bilateral INSTRUCTIONAL WRITER 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 bilateral thalami (series 3 image 36), bilateral INSTRUCTIONAL WRITER 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
--- OUTSIDE RECORDS SUMMARY | 2022-08-14 17:54 | XMS_ITS | Encounter Summary ---
:1965 Author Organization [facility] Address [address] [place] [address] Care Team Providers Name Role Phone Unavailable Primary Care Provider Unavailable Encounter Details Date Type Department Care Team Description 01/16/2021 Anticoagulation Visit Department of Elvira Villalta ([facility]) (Primary Dx); Neurology in [facility] Half-Way Anticoagulant Treatment [address] [place] [address] [place], [place] [phone] (Work) [phone] Social History Tobacco Use Types Packs/Day Years [...] attend jehovah's witness or Patient refused 2021 islam services? Do [...] Target INR 2.0-3.[address] Argenis Diehl ([phone]). The patient was scheduled for an INR recheck on 01/19/21 but we received a message that she had it drawn today, 01/16/21, by [facility] Nurse. I spoke with RADHA Roman [facility] and she relays that the home POC INR today is 3.9. I discussed this with Dr. Argenis Diehl ([phone]) who advises that the patient follow a [...] her primary care provider, Dr. Neri Blackwell, [facility], [place], [place]. I have put in a call for Dr. Blackwell's care team to call us back. Will schedule an INR recheck for 01/20/21. I will fax a standing INR order to RADHA Roman, [facility], phone # [phone], fax #[phone]. She will fax results back to us. [...] OF PHONE CALL. Test results, symptom assessment. OMA MAKER documented in this encounter Plan of Treatment Upcoming Encounters Date Type Specialty Care Team Description 09/01/2022 Clinical Communication Admitting/Central Scheduling 09/06/2022 Appointment Radiology Alfredo Herrera O.P.A.-C. [address] [place] [phone] 09/06/2022 Office Visit Orthopedic Surgery Cyrus Polk M.D. [address] [place] [phone] documented as of this encounter Procedures Procedure Name Priority Date/Time Associated Comments Diagnosis PROTHROMBIN TIME Routine 01/16/2021 2:10 PM Resul ts for this (PT), P DIPLOMA MAKER procedure are i n the results section. documented in this encounter Results Prothrombin Time (PT) (01/16/2021 2:10 PM DIPLOMA MAKER) P athologist Signature EXT INR 3.90 OTHER (SPECIFY IN MIDDLE SCHOOL COACH) Specimen (Source) Anatomical Collection Method Collection Time Re ceived Time Location / / Volume Laterality Blood (Blood, 01/16/2021 2:10 PM Venous) DIPLOMA MAKER Resulting Agency Comment [facility] Historical Provider LAB BLOOD ADD-ON Performing Organization Address City/State/ZIP Code Phon e Number OTHER (SPECIFY IN MIDDLE SCHOOL COACH) OTHER (SPECIFY IN MIDDLE SCHOOL COACH) N/A documented in this encounter Visit Diagnoses Diagnosis Stroke (HCC) - Primary Half-Way (Current) Anticoagulant Treatm ent documented in this encounter Additional Health Concerns Assessment Noted Time PHQ-9 Depression Total Score: 5 04/05/2019 8:00 AM CDT documented as of this encounter
--- OUTSIDE RECORDS SUMMARY | 2022-08-14 17:54 | XMS_ITS | Encounter Summary ---
:1965 Author Organization [facility] Address [address] [place] [address] Care Team Providers Name Role Phone Unavailable Primary Care Provider Unavailable Encounter Details Date Type Department Care Team Description 02/11/2021 Ancillary Procedure Department of Radiology Ridge Vega in [facility] raúl Quintana 200 [facility] 200 [place] [phone] (Wo rk) Social History Tobacco Use Types [...] you attend rastafari or Patient refused 2021 church services? Do [...] Appointment Radiology Alfredo Herrera O.P.A.-C. [address] [place] [address] 09/06/2022 Office Visit Orthopedic Surgery Cyrus Polk M.D. [address] [place] [phone] documented as of this encounter Procedures Procedure [...] bilateral thalami (series 3 image 36), bilateral EDGE ROLLER 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 bilateral thalami (series 3 image 36), bilateral EDGE ROLLER 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 bilateral thalami (series 3 image 36), bilateral EDGE ROLLER 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 bilateral thalami (series 3 image 36), bilateral EDGE ROLLER 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 bilateral thalami (series 3 image 36), bilateral EDGE ROLLER 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 bilateral thalami (series 3 image 36), bilateral EDGE ROLLER 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
--- OUTSIDE RECORDS SUMMARY | 2022-08-14 17:54 | XMS_ITS | Encounter Summary ---
:1965 Author Organization [facility] Address [address] [place] [address] Care Team Providers Name Role Phone Unavailable Primary Care Provider Unavailable Encounter Details Date Type Department Care Team Description 02/11/2021 Ancillary Procedure Department of Radiology Ridge Vega in [facility] raúl Quintana 200 [facility] 200 [place] [phone] (Wo rk) Social History Tobacco Use Types [...] you attend gnosticist or Patient refused 2021 baptist services? Do [...] Admitting/Central Scheduling 09/06/2022 Appointment Radiology Alfredo Herrera O.PSilas [address] [place] [address] 09/06/2022 Office Visit Orthopedic Surgery Cyrus Polk M.D. [address] [place] [phone] documented as of this encounter Procedures Procedure [...] bilateral thalami (series 3 image 36), bilateral CALL OR CONTACT CENTRE TEAM LEADER 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 bilateral thalami (series 3 image 36), bilateral CALL OR CONTACT CENTRE TEAM LEADER 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 bilateral thalami (series 3 image 36), bilateral CALL OR CONTACT CENTRE TEAM LEADER 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 bilateral thalami (series 3 image 36), bilateral CALL OR CONTACT CENTRE TEAM LEADER 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 bilateral thalami (series 3 image 36), bilateral CALL OR CONTACT CENTRE TEAM LEADER 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 bilateral thalami (series 3 image 36), bilateral CALL OR CONTACT CENTRE TEAM LEADER 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
--- OUTSIDE RECORDS SUMMARY | 2022-08-14 17:54 | XMS_ITS | Encounter Summary ---
:1965 Author Organization [facility] Address [address] [place] [address] Care Team Providers Name Role Phone Unavailable Primary Care Provider Unavailable Reason for Visit Outpatient (Routine) - Closed Specialty Diagnoses / Procedures Referred By Contact Refer red To Contact Video Medicine Diagnoses Stroke Cerebrovascular Accident Personal History Robert Diehl [place] M.D. [address] [place] [address] Referral ID Status Reason Start Date Expiration Date Visits Requ ested Visits Authorized [id number] Closed 12/30/2020 12/30/2021 1 1 Encounter Details Date Type Department Care Team Description 02/02/2021 Virtual Visit Department of Robert Diehl Stroke Cere brovascular Neurology jimmy Celaya M.D. Accident Personal [place], [place] 200 [facility] History 200 [place] [phone] Social History Tobacco Use Types Packs/Day Years [...] you attend buddhist or Patient refused 2021 alevism services? Do you belong to any clubs or No 05/17/2022 organizations such as buddhist groups, unions, fraComptTIA or athletic groups, or school groups? How [...] department over the weekend was transferred to [facility] service where she is currently admitted. Therefore she will not be present for today's 8:00 a.m. Outpatient consultation. Highly appreciative of the [facility] Stroke Service cares. No charge. Electronically signed by: Robert Diehl M.D. 02/02/21 7:46 AM ELECTRIC TRUCKER TRIC TRUCKER documented in this encounter Plan of Treatment Upcoming Encounters Date Type Specialty Care Team Description 09/01/2022 Clinical Communication Admitting/Central Scheduling 09/06/2022 Appointment Radiology Alfredo Herrera O.P.A.-C. [address] [place] [phone] 09/06/2022 Office Visit Orthopedic Surgery Cyrus Polk M.D. [address] [place] [address] documented as of this encounter Visit Diagnoses Diagnosis Stroke Cerebrovascular Accident Personal History documented in this encounter Additional Health Concerns Assessment Noted Time PHQ-9 Depression Total Score: 23 02/02/2021 11:[address] documented as of this encounter
--- OUTSIDE RECORDS SUMMARY | 2022-08-14 17:54 | XMS_ITS | Encounter Summary ---
:1965 Author Organization [facility] Address [address] [place] [address] Care Team Providers Name Role Phone Unavailable Primary Care Provider Unavailable Encounter Details Date Type Department Care Team Description 01/12/2021 Anticoagulation Visit Department of Neurology Zuly Alex in [facility] raúl SkaggsNBritton 1216 [facility] [address] [place] [phone] Social History Tobacco Use Types Packs/Day Years [...] you attend mandaeism or Patient refused 2021 sikh services? Do [...] Target INR 2.0-3.[address] Argenis Diehl ([id number]). The patient was scheduled for an INR recheck on 01/09/21, however did not have an INR draw until late that afternoon. The results did not become available until after clinic hours. Patient's INR on 01/09/21 was 2.41. Discussed with Dr. Argenis Diehl ([phone]) who advises that the patient follow a [...] OF PHONE CALL. Test results, symptom assessment. 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 [address] [place] [address] 09/06/2022 Office Visit Orthopedic Surgery Cyrus Polk M.D. [address] [place] [address] documented as of this encounter Procedures Procedure Name Priority Date/Time Associated Diagnosis Comme nts PROTHROMBIN TIME (PT), Routine 01/09/2021 Resul ts for this P procedure are i n the results section . documented in this encounter Results Prothrombin Time (PT) (01/09/2021) P athologist Signature EXT INR 2.40 OTHER (SPECIFY IN SPEED READING TEACHER) Specimen (Source) Anatomical Location Collection Method / Collectio n Time Received Time / Laterality Volume Blood (Blood, 01/09/2021 Venous) Narrative This result has an attachment that is no t available. Historical Provider LAB BLOOD ADD-ON Performing Organization Address City/State/ZIP Code Phon e Number OTHER (SPECIFY IN SPEED READING TEACHER) OTHER (SPECIFY IN SPEED READING TEACHER) N/A documented in this encounter Visit Diagnoses Not on filedocumented in this encounter Additional Health Concerns Assessment Noted Time PHQ-9 Depression Total Score: 5 04/05/2019 8:00 AM CDT documented as of this encounter
--- OUTSIDE RECORDS SUMMARY | 2022-08-14 17:54 | XMS_ITS | Encounter Summary ---
:1965 Author Organization [facility] Address [address] [place] [address] Care Team Providers Name Role Phone Unavailable Primary Care Provider Unavailable Reason for Visit Reason Comments Pre-visit Intake Encounter Details Date Type Department Care Team Description 01/29/2021 Clinical Communication Department of Robert Diehl e-visit Intake Neurology in Lilian Celaya Lewis, [facility] [place], [place] [address] [place] [address] [place], [place] [phone] (Work) [phone] Social History Tobacco Use Types Packs/Day Years [...] you attend yazidi or Patient refused 2021 gnosticist services? Do [...] 09/06/2022 Appointment Radiology Alfredo Herrera O.PBrittonAOmar [address] [place] [phone] 09/06/2022 Office Visit Orthopedic Surgery Cyrus Polk M.D. [address] [place] [address] documented as of this encounter Visit Diagnoses Not on filedocumented in this encounter Additional Health Concerns Assessment Noted Time PHQ-9 Depression Total Score: 5 04/05/2019 8:00 AM CDT documented as of this encounter
--- OUTSIDE RECORDS SUMMARY | 2022-08-14 17:54 | XMS_ITS | Encounter Summary ---
:1965 Author Organization [facility] Address [address] [place] [address] Care Team Providers Name Role Phone Unavailable Primary Care Provider Unavailable Encounter Details Date Type Department Care Team Description 01/20/2021 Anticoagulation Visit Department of Neurology Elvira Villalta in [facility] raúl SkaggsNBritton 1216 [facility] [address] [place] [phone] Social History Tobacco Use Types Packs/Day Years [...] attend oriental orthodox or Patient refused 2021 rastafarian services? Do [...] call from Dr. Rosalva Aguila's nurse at [facility]. She states they have received [...] Transfer of anticoagulation management back to PCP. EMENT ASSISTANT documented in this encounter Plan of Treatment Upcoming Encounters Date Type Specialty Care Team Description 09/01/2022 Clinical Communication Admitting/Central Scheduling 09/06/2022 Appointment Radiology Alfredo Herrera O.P.A.-C. [address] [place] [phone] 09/06/2022 Office Visit Orthopedic Surgery Cyrus Polk M.D. [address] [place] [phone] documented as of this encounter Visit Diagnoses Not on filedocumented in this encounter Additional Health Concerns Assessment Noted Time PHQ-9 Depression Total Score: 5 04/05/2019 8:00 AM CDT documented as of this encounter
--- OUTSIDE RECORDS SUMMARY | 2022-08-14 17:54 | XMS_ITS | Encounter Summary ---
:1965 Author Organization [facility] Address [address] [place] [address] Care Team Providers Name Role Phone Unavailable Primary Care Provider Unavailable Reason for Visit Reason Comments Tahmina/Fazal Encounter Details Date Type Department Care Team Description 01/26/2021 Clinical Communication Department of Robert Fowler W8B/Scharf Neurology in .. [place], [place] 200 [facility] 200 [place] [phone] [phone] Social History Tobacco Use Types Packs/Day Years [...] you attend sikh or Patient refused 2021 druze services? Do [...] encounter Miscellaneous Notes Telephone Encounter - Robert Fowler M.D. - 01/26/2021 5:19 PM CST Great thank you VOLTAGE TECHNICIAN Addendum Note - Robert Fowler M.D. - 01/26/2021 2:50 PM LOW VOLTAGE TECHNICIAN Addended by: ROBERT FOWLER on: 01/26/2021 02:50 PM Modules accepted: Orders VOLTAGE TECHNICIAN Telephone Encounter - Robert Fowler M.D. - 01/26/2021 2:49 PM CST Believe MRI is ordered now. VOLTAGE TECHNICIAN Telephone Encounter - Robert Fowler M.D. - 01/26/2021 2:47 PM CST I am sorry to learn of the patient's additional symptoms Unfortunately we cannot react as quickly as the emergency department which was recommended locally I will order a brain MRI and in-person or video visit to follow-up. Thank you VOLTAGE TECHNICIAN Telephone Encounter - Allyssa Amaya Yomi - 01/26/2021 12:56 PM CST Patient calls checking the status of this request. Thank you. VOLTAGE TECHNICIAN documented in this encounter Plan of Treatment Upcoming Encounters Date Type Specialty Care Team Description 09/01/2022 Clinical Communication Admitting/Central Scheduling 09/06/2022 Appointment Radiology Alfredo Herrera O.P.A.-C. [address] [place] [address] 09/06/2022 Office Visit Orthopedic Surgery Cyrus Polk M.D. [address] [place] [address] documented as of this encounter Visit Diagnoses Diagnosis Stroke Cerebrovascular Accident Personal History - Primary documented in this encounter Additional Health Concerns Assessment Noted Time PHQ-9 Depression Total Score: 5 04/05/2019 8:00 AM CDT documented as of this encounter
--- OUTSIDE RECORDS SUMMARY | 2022-08-14 17:54 | XMS_ITS | Encounter Summary ---
:1965 Author Organization [facility] Address [address] [place] [address] Care Team Providers Name Role Phone Unavailable Primary Care Provider Unavailable Encounter Details Date Type Department Care Team Description 01/20/2021 Clinical Communication Department of Elvira Villalta, Neurology in [place], [place] [address] [place] [address] [address] [place] [phone] Social History Tobacco Use Types Packs/Day Years [...] you attend pentecostalism or Patient refused 2021 christian services? Do [...] Appointment Radiology Alfredo Herrera O.P.A.-C. [address] [place] [phone] 09/06/2022 Office Visit Orthopedic Surgery Cyrus Polk M.D. [address] [place] [phone] documented as of this encounter Visit Diagnoses Not on filedocumented in this encounter Additional Health Concerns Assessment Noted Time PHQ-9 Depression Total Score: 5 04/05/2019 8:00 AM CDT documented as of this encounter
--- OUTSIDE RECORDS SUMMARY | 2022-08-14 17:54 | XMS_ITS | Encounter Summary ---
:1965 Author Organization [facility] Address [address] [place] [id number] Care Team Providers Name Role Phone Unavailable Primary Care Provider Unavailable Reason for Referral MRI/CAT/PET Scan (Routine) - Closed Specialty Diagnoses / Procedures Referred By Contact Refer red To Contact Radiology Diagnoses Robert Akhtar M.D. [facility] Procedures CT Head Neck Angiogram with IV Contrast [address] [place], [place] [phone] Referral ID Status Reason Start Date Expiration Date Visits Requ ested Visits Authorized [id number] Closed 12/31/2020 12/31/2021 1 1 NISTRATION MANAGER Reason for Visit MRI/CAT/PET Scan (Routine) - Closed Specialty Diagnoses / Procedures Referred By Contact Refer red To Contact Radiology Diagnoses Ataxia Robert Diehl M.D. [facility] Procedures CT Head Neck Angiogram with IV Contrast [address] [place], [place] [address] Referral ID Status Reason Start Date Expiration Date Visits Requ ested Visits Authorized [id number] Closed 12/31/2020 12/31/2021 1 1 Encounter Details Date Type Department Care Team Description 01/30/2021 Hospital Encounter Department of Radiology, Akhil Diehl Ataxia [facility], in M[place]. [place], [place] [address] [facility] [address] [place] [phone] (Babatunde billings) Social History Tobacco Use Types [...] Appointment Radiology Alfredo Herrera O.P.A.-C. [address] [place] [phone] 09/06/2022 Office Visit Orthopedic Surgery Cyrus oPlk M.D. [address] [place] [phone] documented as of this encounter Procedures Procedure Name Priority Date/Time Associated Comments Diagnosis CT HEAD NECK RAD - Routine 01/30/2021 3:24 Ataxia Results for this ANGIOGRAM WITH IV (most inpatients PM ADMINISTRATION MANAGER proced ure are in CONTRAST and all the results outpatients) section. documented in this encounter Results CT Head Neck Angiogram with IV Contrast (01/30/2021 3:24 PM ADMINISTRATION MANAGER) Anatomical Region Laterality Modality Head and Neck, Neuroradiology RST LOS, N/A C omputed Tomography, Computed Neuroradiology ARZ LOS, Neuroradiology T omography FLA LOS Specimen (Source) Anatomical Collection Method Collection Time Re ceived Time Location / / Volume Laterality 01/30/2021 2:25 PM ADMINISTRATION MANAGER Impressions 01/30/2021 3:18 PM ADMINISTRATION MANAGER 1. 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 Slightly decreased high-grade stenosis a t the V3/4 junction with increased flow in the distal V4 segment. 2. Evolving, now chronic right cerebella r infarct. 3. 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 Narrative 01/30/2021 3:18 PM ADMINISTRATION MANAGER EXAM: CT HEAD NECK ANGIOGRAM WITH [...] normal caliber bilater al MCAs, ACAs and assurance specialist. Patent anterior and right posterior communicating [...] normal caliber bilater al MCAs, ACAs and assurance specialist. Patent anterior and right posterior communicating [...] mg iodine/mL solution Given 01/30/2021 2:29 PM ADMINISTRATION MANAGER 1 00 mL 1-200 mL (OMNIPAQUE) 1-200 mL, intravenous, Once in imaging, contrast, Starting on Tue01/30/21 at 1355, For 1 dose, Imaging Protocol Orders, Dose per Radiant Medication Guidelines sodium chloride (PF) 0.9 % injection 1-1 00 mL Given 01/30/2021 2:29 PM ADMINISTRATION MANAGER 35 mL 1-100 mL, intravenous, Once, On Tue01/30/21 at 1400, For 1 dose, Imaging Protocol Orders documented in this encounter Additional Health Concerns Assessment Noted Time PHQ-9 Depression Total Score: 5 04/05/2019 8:00 AM CDT documented as of this encounter
--- OUTSIDE RECORDS SUMMARY | 2022-08-14 17:54 | XMS_ITS | Encounter Summary ---
:[address] [facility] Address [address] [place] [id number] Care Team Providers Name Role Phone Unavailable Primary Care Provider Unavailable Reason for Referral Outpatient (Routine) - Closed Specialty Diagnoses / Procedures Referred By Contact Refer red To Contact Home Health Care Diagnoses Stroke (HCC) Chronic Pain Syndrome Stroke Cerebrovascular Accident Personal History Ric Quinn M.D., M.S. [address] [place] [phone] Referral ID Status Reason Start Date Expiration Date Visits Requ ested Visits Authorized [id number] Closed 02/03/2021 02/03/2022 1 1 [employer]ER LEADERSHIP DEVELOPMENT Encounter Details Date Type Department Care Team Description 01/31/2021 - Hospital Encounter [facility] Blanca, Stroke (H CC) (Primary Dx); [facility]; [facility], [address] [place] [address] Stroke Cerebrovascular Accident Personal History [facility] [address] floor [phone] [place] [address] (Work) [place], [place] [phone] (Fax) [phone] Social History Tobacco Use Types Packs/Day Years [...] you attend [employer] or Patient refused 2021 latter-day services? Do [...] Comments Blood Pressure 133/71 02/03/2021 5:15 PM MANAGER LEADERSHIP DEVELOPMENT Pulse 92 02/03/2021 5:15 PM MANAGER LEADERSHIP DEVELOPMENT Temperature 36.5 ??C (97.7 ??F) 02/03/2021 5:15 PM MANAGER LEADERSHIP DEVELOPMENT Respiratory Rate 17 02/03/2021 5:15 PM MANAGER LEADERSHIP DEVELOPMENT Oxygen Saturation 97% 02/03/2021 5:15 PM MANAGER LEADERSHIP DEVELOPMENT Inhaled Oxygen Concentration - - Weight 78.8 kg (173 lb 11.6 oz) 01/31/2021 9:39 PM MANAGER LEADERSHIP DEVELOPMENT Height 152.4 cm (5') 01/31/2021 9:39 PM MANAGER LEADERSHIP DEVELOPMENT Body Mass Index 33.93 01/31/2021 9:39 PM MANAGER LEADERSHIP DEVELOPMENT documented in this encounter Discharge Summaries Malcom Torres M.D. - 02/03/2021 2:24 PM CST DISCHARGE SUMMARY BRIEF OVERVIEW Hospital: [facility] Discharge Provider: Nan Rios M.D. Primary Team: [facility] Neurology Stroke and Cerebrovascular Disease [...] artery dissection. Shewas subsequently admitted directly to [facility] Neurology Stroke service for further workup and [...] were provided to the patient and caregiver(s). [employer] LEADER[employer]IP DEVELOPMENT documented in this encounter Discharge Instructions Discharge InstructionsLaquita Raines - 02/02/2021 7:23 AM CST You were discharge from the Neurology Stroke Service. Please Identify this service name if you call with questions after your hospitalization. [employer]ELOP[employer] Discharge Instr - ActivityLeonides Liang PBrittonT. - 02/02/2021 1:13 PM MANAGER LEADERSHIP DEVELOPMENT Physical Therapy Discharge Summary MOBILITY RESTRICTIONS/PRECAUTIONS: Fall [...] 02/02/2021 by Leonides Liang P.T. Contact information: [facility], [address], GER LEADERSHIP DEVELOPMENT AttachmentsThe following attachments cannot be sent through Care Everywhere. 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 - 02/03/2021 1:57 PM CST No PT intervention today as patient was at an MRI this morning, now stating that she has just gone for a walk and plans are for dc to home with intermittent assist from her son. Helen Greer, PT [employer]ER LEADERSHIP DEVELOPMENT Catalina Panchal, R.N. - 02/03/2021 1:49 PM CST Patient discussed at Stroke Multidisciplinary Rounds. Plan for the day: Case Management Following, PT/OT, Medication Management, MRI/MRA Plan for the Stay: Stroke w/u Discharge barriers: Inpatient Needs Recommended discharge disposition: [facility] w/[facility] GER LEADERSHIP DEVELOPMENT Nan Rios M.D. - 02/03/2021 10:36 AM [...] pain syndrome, fibromyalgia, and nicotine use disorder. [employer]IP DEVELOPMENT Leonides Kumar M.D. - 02/03/2021 7:09 AM [...] status: Prior Disposition: Home Plan discussed with [facility] Neurology Stroke and Cerebrovascular Disease Technical Account Representative, Dr. Rios. Please page the [facility] Neurology Stroke and Cerebrovascular Disease service pager at [phone] with any questions. Leonides Kumar M.D. GER LEADERSHIP DEVELOPMENT Makenzie Figueredo O.T.Katarina - 02/02/2021 3:24 PM [...] home to ensure her safety. From the Painter Ordnance's perspective, the patient is not an inpatient [...] Treatment Time (min): 32 min MILA Cardoza GER LEADERSHIP DEVELOPMENT Catalina Panchal RBetsy - 02/02/2021 2:31 PM CST Patient discussed at Stroke Multidisciplinary Rounds. Plan for the day: MRI, Case Management Consult, PT/OT, Medication Management Plan for the Stay: Stroke w/u Discharge barriers: Inpatient Needs Recommended discharge disposition: [facility] w/C [employer]ELOPMENT Leonides Liang P.T. - 02/02/2021 12:58 PM [...] Time (min): 32 min Leonides Liang P.T. [employer]ER LEADERSHIP DEVELOPMENT Nan Rios M.D. - 02/02/2021 10:27 AM [...] pain syndrome, fibromyalgia, and nicotine use disorder. [employer]ADER[employer]IP DEVELOPMENT Jessie Rock Pharm.D., R.Ph. - 02/02/2021 10:21 AM CST Images from the original note were not included. Admission Medication History Note Adherence issues: Unable to assess Medication list source: Pharmacy or dispense records. Medication list provided by [facility] in [place]. Most recent dispensing information obtained. Multiple changes [...] by mouth 2 (two) times a day. GER LEADERSHIP DEVELOPMENT Leonides Kumar M.D. - 02/02/2021 6:55 AM [...] status: Prior Disposition: Home Plan discussed with [facility] Neurology Stroke and Cerebrovascular Disease Technical Account Representative, Dr. Rios. Please page the [facility] Neurology Stroke and Cerebrovascular Disease service pager at [phone] with any questions. Leonides Kumar M.D. GER LEADERSHIP DEVELOPMENT Leonides Kumar M.D. - 02/01/2021 6:36 AM [...] status: Prior Disposition: Home Plan discussed with [facility] Neurology Stroke and Cerebrovascular Disease Technical Account Representative, Dr. Rios. Please page the [facility] Neurology Stroke and Cerebrovascular Disease service pager at [phone] with any questions. Leonides Kumar M.D. G[employer] LEADERSHIP DEVELOPMENT documented in this encounter H&P Notes Nan [...] segment. ?? The patient presented to the [facility] with acute onset vertigo which occurred yesterday afternoon while she was at [facility]. She bent forward and complained of neck pain which radiated to the top of her head. She also complained of warmth all over her body and generalised weakness. ?? With effort, she was able to ambulate back to her car with her groceries, where she met her son, whothen took her to the [facility]. There, the patient had a head CT the chronic left cerebellar infarct. There was also concern for a new infarct in the right thalamus. INR was 1.35. She was transferred to [facility] for further evaluation. ?? Today, she feels [...] pain syndrome, fibromyalgia, and nicotine use disorder. [employer] LEADERSHIP DEVELOPMENT Marbella Cutler M.D. - 02/01/2021 2:55 AM CST I saw the patient with Dr. Enlgand. I was present for or re-performed dodson [...] V4 segment. The patient presented to the [facility] with acute onset vertigo which occurred yesterday afternoon while she was at [facility]. She bent forward and complained of neck pain which radiated to the top of her head. She also complained of warmth all over her body and generalised weakness. With effort, she was able to ambulate back to her car with her groceries, where she met her son, whothen took her to the [facility]. There, the patient had a head CT the chronic left cerebellar infarct. INR was 1.35. She was transferred to [facility] for further evaluation. On the floor, she was hemodynamically stable but complained of ongoing vertigo, with difficulty keeping her eyes open. Social history: she is currently unemployed but previously worked at a [employer] and [employer]. She is fully independent of her ADLs [...] admitting resident. Please page the Stroke service [phone] with questions/concerns. [employer]ER LEADERSHIP DEVELOPMENT Gerald England M.D. - 01/31/2021 9:16 PM [...] artery dissection. Shewas subsequently admitted directly to [facility] Neurology Stroke service for further workup and [...] COMPUTER NAVIGATION.; Surgeon: Darlin Olmedo M.D.; Location: [facility] ROMB OR ??? HYSTERECTOMY ??? 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 Patent anterior and right posterior communicating arteries. [...] page the Cerebrovascular Neurology Service pager at [phone] with any questions or concerns. [facility] Stroke Neurology Service Checker Dump Grounds: Nan England M.D. STROKE DOCUMENTATION: Stroke Center [...] to hemorrhage and/or hemorrhagic risk Prestroke modified [place] Score (mRS): 1 - No significant disability. [...] 30 or greater) and hormonal contraceptive use [employer]IP DEVELOPMENT documented in this encounter Consult Notes Pamela Middleton M.S., L.Sapna.NeriC., C.T.T.S. - 02/03/2021 10:08 AM CSTAssociated Order(s): IP CONSULT TO INTERNAL MEDICINE NICOTINE DEPENDENCE; IP CONSULT TO INTERNAL MEDICINE NICOTINE DEPENDENCE SUBJECTIVE Consults REASON FOR CONSULT Admitting Service: Neurology Reason for Consult: Tobacco Use Disorder HISTORY OF PRESENT ILLNESS Angie Bender is a 55 y.o. female who was seen at [place] and is being evaluated for tobacco use [...] provided the patient with educational materials and [facility] contact information. Patient is unable to [...] Middleton M.S., Delvin, C.T.T.S. 02/03/2021 10:08 AM MANAGER LEADERSHIP DEVELOPMENT GER LEADERSHIP DEVELOPMENT Catalina Panchal, RBrittonNBritton - 02/02/2021 2:11 PM CSTAssociated Order(s): IP CONSULT TO CARE MANAGEMENT Discharge Planning Assessment SUBJECTIVE Referral Data Referral Source: Early Screen for Discharge Planning Referral Reason: Discharge Planning Discharge Planning: Home health Who was present during the interview?: Patient Stitcher Special Machine Services Used: No Patient Information Primary Caregiver: Self Legal Information Legal Decision Maker: Self Legal Status: Voluntary Caregiver Information Self Services Requested Home Health: [facility] Level of Care: Intermediate OBJECTIVE Functional Status (ADLs) Functional Status: Minimum assistance Assistive Devices: Walker, Shower chair, Eyeglasses, Hearing aids Dressing: Independent Feeding: Independent Bathing: Independent Grooming: Independent Toileting: Independent Transfer to/from Bed, Chair Etc.: Independent Mobility: Independent Meal Prep: Independent Medication Setup/Administration: Needs assistance Telephone Use: Independent Housekeeping: Independent Shopping: Independent Managing Finances: Independent Behavior: Oriented Communication: Talks, Understands speaking, Understands Panamanian Environmental Supports Home Environment: House Anticipated Needs/Assistive [...] Nurse visit Home Care Agency Name : [facility] Anticipated Discharge Destination[place] [facility] Recommended Discharge Services: Nursing Does the patient need discharge transport arranged?: No ASSESSMENT / PLAN Plan Assessment: The materials engineer met with Angie Bender to discuss her current hospitalization and home goingneeds. The patient was unaccompanied. The patient was a reliable historian, but was lacking completedetails at times. The role of materials engineer was reviewed. The patient reviewed her prior level of care and support system. The patient receives support from her son. The patient described her living environment as a single level home with level entry. Housekeeping, grocery shopping, meal prep, and other household responsibilities have previously been completed by patient. materials engineer discussed the patient's potential needs at dismissal based on their home setti ng, previous needs and responsibilities, homebound status, and relevant assessments with the patient. The patient will be safe and supported to return home with [facility] or previous services noted above when [...] dismissal will be provided by family--son. 3. materials engineer recommended nothing at this time. 4. materials engineer provided information regarding the dismissal process. 5. materials engineer placed or requested the following hospital-based consult orders and/or referrals:None. 6. materials engineer will continue to assess for homegoing needs with the interdisciplinary team. 7. materials engineer encouraged the patient to reach out with any questions/concerns. Care Management will continue to follow. Patient to discharge with home health care. [facility] - Admitted Since 01/31/2021 The patient receives [facility] visits 1-2x week. She has qualified for VASCULAR TECHNICIAN, homemaking, and home health aide visits, but [...] With: Alone Receives Help From: Family, Friend(s), food service attendant ADL Assistance: Independent IADL/Homemaking Assistance: Required assistance IADL/Homemaking Assistance Comments: Has assistance with meals on wheels, cleaning, and medication management Occupational Role: On disability Prior Mobility/Functional Transfers Level of Junction: Independent Previous Transfer/Mobility Assistance Comments: Patient reports [...] Time (min): 25 min Radha Samuel P.T. GER LEADERSHIP DEVELOPMENT Rosario Lopez O.Jolanta. - 02/01/2021 3:17 PM [...] With: Alone Receives Help From: Family, Friend(s), food service attendant ADL Assistance: Independent IADL/Homemaking Assistance: Required assistance IADL/Homemaking Assistance Comments: Has assistance with meals on wheels, cleaning, and medication management Driving: Independent Occupational Role: On disability Occupational Role Comments: Previously worked at a [employer] and [employer] Prior Mobility/Functional Transfers Level of Junction: Independent Home Living Type of Home: Apartment [...] Time (min): 60 min Rosario Lopez O.T. GER LEADERSHIP DEVELOPMENT Maria M Duque M.D. - 02/01/2021 7:21 AM CSTAssociated Order(s): IP CONSULT TO PHYSICAL MEDICINE & REHABILITATION Consult received for Physical Medicine and Rehabilitation Consult Service. I reviewed the electronic health record. I have triaged to therapy only; no clerical car checker consult appears to be necessary at this time. If therapists or referring service feel that a clerical car checker review is necessary, please send a new consult request with only the Physician consult - Physical Medicine and Rehabilitation consult (hospital) item selected. [employer] LEADERSHIP DEVELOPMENT documented in this encounter Nursing Notes Sofie [...] by: Sofie Sutton R.N. 02/03/21 5:24 PM MANAGER LEADERSHIP DEVELOPMENT GER LEADERSHIP DEVELOPMENT Sofie Sutton R.N. - 02/03/2021 5:20 PM [...] sent with patient. Electronically signed by: Sofie Suttno R.N. 02/03/21 5:22 PM MANAGER LEADERSHIP DEVELOPMENT GER LEADERSHIP DEVELOPMENT Marlene Grover R.N. - 02/03/2021 5:14 AM [...] Goal: Patient discharge needs identified Outcome: Progressing GER LEADERSHIP DEVELOPMENT Mague Rudolph R.N. - 02/02/2021 5:03 AM CST Shift Goals: Clinical Goals for the Shift: patient will use call light appropriately Identify possible barriers to meeting goals/advancing plan of care: End of Shift Summary: patient met goal GER LEADERSHIP DEVELOPMENT Valarie Grayson R.N. - 02/01/2021 5:59 PM CST Shift Goals: Clinical Goals for the Shift: Patient will tolerate MRI Identify possible barriers to meeting goals/advancing plan of care: Patient's medical billing assistant End of Shift Summary: Goal not met. MRI scheduled for Tuesday related to device monitoring. Electronically signed by: Valarie Grayson R.N. 02/01/21 5:59 PM MANAGER LEADERSHIP DEVELOPMENT Problem: SKIN/TISSUE INTEGRITY Goal: Skin/Tissue integrity maintained or improved Outcome: Progressing Problem: SAFETY ADULT Goal: Maintain a safe environment Outcome: Progressing Problem: SAFETY ADULT - RISK FOR FALL AND OR FALL INJURY Goal: Patient remains free from fall/fall injury Outcome: Progressing GER LEADERSHIP DEVELOPMENT documented in this encounter Miscellaneous Notes Hospital [...] artery dissection. Shewas subsequently admitted directly to [facility] Neurology Stroke service for further workup and [...] after a CTA head/neck in 3 months. GER LEADERSHIP DEVELOPMENT documented in this encounter Plan of Treatment Upcoming Encounters Date Type Specialty Care Team Description 09/01/2022 Clinical Communication Admitting/Central Scheduling 09/06/2022 Appointment Radiology Alfredo Herrera O.P.A.-C. [address] [place] [address] 09/06/2022 Office Visit Orthopedic Surgery Cyrus Polk M.D. [address] [place] [phone] Scheduled Referrals Name Type Priority Associated Diagnoses Order S [facility] Outpatient Referral Routine Stroke (HCC) Ordered: Health Referral Chronic Pain Syn drome 02/03/2021 Stroke Cerebrovascular Accident Personal History documented as of this encounter Procedures Procedure Name Priority Date/Time Associated Comments Diagnosis MR NECK ANGIOGRAM RAD - Routine 02/03/2021 Results f or WITHOUT AND WITH IV (most inpatients 12:39 PM MANAGER LEADERSHIP DEVELOPMENT this procedure CONTRAST and all are in the outpatients) results section. MR BRAIN WITHOUT AND RAD - Routine 02/03/2021 Result s for WITH IV CONTRAST (most inpatients 12:34 PM MANAGER LEADERSHIP DEVELOPMENT this pr ocedure and all are in the outpatients) results section. DX ABDOMEN SUPINE WITH RAD - Routine 02/02/2021 3:26 R esults for UPRIGHT OR DECUBITUS 2 (most inpatients PM MANAGER LEADERSHIP DEVELOPMENT t his procedure VIEWS and all are in the outpatients) results section. PROTHROMBIN TIME (PT), Routine 02/02/2021 5:20 Re sults for P AM MANAGER LEADERSHIP DEVELOPMENT this procedure are in the results section. LIPID PANEL, S Routine 02/01/2021 5:21 Results fo r AM MANAGER LEADERSHIP DEVELOPMENT this procedure are in the results section. RENAL FUNCTION PANEL, S Routine 02/01/2021 5:21 R esults for AM MANAGER LEADERSHIP DEVELOPMENT this procedure are in the results section. FOLATE, S Routine 02/01/2021 5:21 Results for AM MANAGER LEADERSHIP DEVELOPMENT this procedure are in the results section. VITAMIN B12 ASSAY, S Routine 02/01/2021 5:21 Resu lts for AM MANAGER LEADERSHIP DEVELOPMENT this procedure are in the results section. ECG Routine 01/31/2021 Results for 11:35 PM MANAGER LEADERSHIP DEVELOPMENT this procedure are in the results section. SARS CORONAVIRUS 2, Routine 01/31/2021 Results for RNA, RAPID POC, V 10:32 PM MANAGER LEADERSHIP DEVELOPMENT this proce dure are in the results section. ELECTROLYTE (CHEM 4) Routine 01/31/2021 9:44 Resu lts for PANEL, S/P PM MANAGER LEADERSHIP DEVELOPMENT this procedure are in the results section. ACTIVATED PARTIAL Routine 01/31/2021 9:44 Results for THROMBOPLASTIN TIME PM MANAGER LEADERSHIP DEVELOPMENT this pro cedure (APTT), P are in the results section. PROTHROMBIN TIME (PT), Routine 01/31/2021 9:44 Re sults for P PM MANAGER LEADERSHIP DEVELOPMENT this procedure are in the results section. CBC WITH DIFFERENTIAL, Routine 01/31/2021 9:44 Re sults for B PM MANAGER LEADERSHIP DEVELOPMENT this procedure are in the results section. ALANINE Routine 01/31/2021 9:44 Results for AMINOTRANSFERASE (ALT), PM MANAGER LEADERSHIP DEVELOPMENT this procedure S/P are in the results section. ASPARTATE Routine 01/31/2021 9:44 Results for AMINOTRANSFERASE (AST), PM MANAGER LEADERSHIP DEVELOPMENT this procedure S/P are in the results section. THYROID-STIMULATING Routine 01/31/2021 9:44 Resul ts for HORMONE-SENSITIVE PM MANAGER LEADERSHIP DEVELOPMENT this proce dure (S-TSH) are in the results section. HEMOGLOBIN A1C, B Routine 01/31/2021 9:44 Results for PM MANAGER LEADERSHIP DEVELOPMENT this procedure are in the results section. documented in this encounter Results MR Neck Angiogram without and with IV Contrast (02/03/2021 12:39 PM MANAGER LEADERSHIP DEVELOPMENT) Anatomical Region Laterality Modality Neck, Neuroradiology RST LOS, Neuroradiology ARZ LOS, N/A Magnetic Resonance [facility]adiology [facility] Specimen (Source) Anatomical Collection Method Collection Time Re ceived Time Location / / Volume Laterality 02/03/2021 11:37 AM MANAGER LEADERSHIP DEVELOPMENT Impressions 02/03/2021 1:26 PM MANAGER LEADERSHIP DEVELOPMENT 1. Infarctions in the posterior circulation of [...] technica l limitations. Narrative 02/03/2021 1:26 PM MANAGER LEADERSHIP DEVELOPMENT EXAM: MR BRAIN WITHOUT AND WITH IV [...] and with IV Contrast (02/03/2021 12:34 PM MANAGER LEADERSHIP DEVELOPMENT) Anatomical Region Laterality Modality Head, Brain, Neuroradiology RST LOS, Neuroradiology ARZ N/A Magnetic Resonance LOS, Neuroradiology FLA LOS Specimen (Source) Anatomical Collection Method Collection Time Re ceived Time Location / / Volume Laterality 02/03/2021 11:37 AM MANAGER LEADERSHIP DEVELOPMENT Impressions 02/03/2021 1:26 PM MANAGER LEADERSHIP DEVELOPMENT 1. Infarctions in the posterior circulation of [...] technica l limitations. Narrative 02/03/2021 1:26 PM MANAGER LEADERSHIP DEVELOPMENT EXAM: MR BRAIN WITHOUT AND WITH IV [...] or Decubitus 2 Views (02/02/2021 3:26 PM MANAGER LEADERSHIP DEVELOPMENT) Anatomical Region Laterality Modality Abdomen, Abdominal RST LOS, Abdominal ARZ LOS, Right Digital Radiography Abdominal FLA LOS Specimen (Source) Anatomical Collection Method Collection Time Re ceived Time Location / / Volume Laterality 02/02/2021 3:49 PM MANAGER LEADERSHIP DEVELOPMENT Impressions 02/02/2021 3:50 PM MANAGER LEADERSHIP DEVELOPMENT Spinal stimulator device with tip over the T7-8 interspace. Generator pack posterior to the left janett ac crest. Postoperative changes ventral hernia repair. Surgical marylin near the GE junction. Cholecystectomy. Lung bases are clear. Narrative 02/02/2021 3:50 PM MANAGER LEADERSHIP DEVELOPMENT EXAM: ??DX ABDOMEN SUPINE WITH UPRIGHT OR [...] (ABNORMAL) Prothrombin Time (PT) (02/02/2021 5:20 AM MANAGER LEADERSHIP DEVELOPMENT) Patholo gist Method Time Signature Prothrombin 16.2 (H) 9.4 - 12.5 02/02/2021 DTL Time, P sec 6:12 AM MANAGER LEADERSHIP DEVELOPMENT INR 1.5 0.9 - 1.1 02/02/2021 DTL 6:12 AM MANAGER LEADERSHIP DEVELOPMENT Comment: ----ADDITIONAL INFORMATION---- Standard intensity warfarin therapeutic range: 2.0 to 3.0 ?? High intensity warfarin therapeutic rang e: 2.5 to 3.5 Specimen Anatomical Collection Method Collection Time Receive d Time (Source) Location / / Volume Laterality Blood (Blood, 02/02/2021 5:20 AM 02/03/20 5:48 Venous) MANAGER LEADERSHIP DEVELOPMENT AM MANAGER LEADERSHIP DEVELOPMENT Leonides Kumar M.D. LAB BLOOD ADD-ON Performing Organization Address City/State/ZIP Code Phon e Number [facility] - [address] [place] [phone] [facility] [place] [address] Laboratories-[facility] [address] [facility] Renal Function Panel (02/01/2021 5:21 AM MANAGER LEADERSHIP DEVELOPMENT) P athologist Signature Potassium, S 4.3 3.6 - 5.2 02/01/2021 DTL mmol/L 6:26 AM MANAGER LEADERSHIP DEVELOPMENT Sodium, S 139 135 - 145 02/01/2021 DTL mmol/L 6:26 AM MANAGER LEADERSHIP DEVELOPMENT Chloride, S 106 98 - 107 02/01/2021 DTL mmol/L 6:26 AM MANAGER LEADERSHIP DEVELOPMENT Bicarbonate, S 25 22 - 29 02/01/2021 DTL mmol/L 6:26 AM MANAGER LEADERSHIP DEVELOPMENT Anion Gap 8 7 - 15 02/01/2021 DTL 6:26 AM [employer] BUN (Blood Urea 14 6 - 21 02/01/2021 DTL Nitrogen), S mg/dL 6:26 AM [employer] Creatinine 0.74 0.59 - 02/01/2021 DTL 1.04 mg/dL 6:26 AM [employer] eGFR-Non >90 >=60 02/01/2021 DTL Black/ mL/min/BSA 6:26 AM [employer] Congolese Comment: ----ADDITIONAL INFORMATION---- Estimated GFR calculated using the 2009 CKD_EPI creatinine equation. eGFR-Black/ >90 >=60 mL/min/BSA 2020 6:26 AM [employer] DTL Comment: ----ADDITIONAL INFORMATION---- Estimated GFR calculated using the 2009 CKD_EPI creatinine equation. Calcium, Total, S 9.2 8.6 - 10.0 mg/dL 02/01/2021 6:26 AM [employer] DTL Glucose, S 96 70 - 140 mg/dL 02/01/2021 6:26 AM [employer] D TL Albumin, S 3.6 3.5 - 5.0 g/dL 02/01/2021 6:26 AM [employer] D TL Phosphorus (Inorganic), S 4.0 2.5 - 4.5 mg/dL 02/02/20 6:26 AM [employer] DTL Specimen Anatomical Collection Method Collection Time Receive d Time (Source) Location / / Volume Laterality Blood (Blood, 02/01/2021 5:21 AM 02/02/20 5:52 Venous) [employer] AM [employer] Gerald England M.D. LAB BLOOD ADD-ON Performing Organization Address City/State/ZIP Code Phon e Number [facility] - [address] [place], [place] [address] [facility] [place] [address] [facility] [address] (ABNORMAL) Vitamin B12 Assay (02/01/2021 5:21 AM [employer]) Analysis Performed At Patho logist Time Signature Vitamin B12 >1400 (H) 180 - 914 02/02/2021 DTL Assay, S ng/L 7:10 AM [employer] Comment: ----ADDITIONAL INFORMATION---- In patients being evaluated [...] (Blood, 02/01/2021 5:21 AM 02/02/20 5:52 Venous) [employer] AM [employer] Gerald England M.D. LAB BLOOD ADD-ON Performing Organization Address City/[facility] Phon e Number [facility] - [address] Folate (02/01/2021 5:21 AM [employer]) athologist Signature Folate, S 17.9 >=4.0 mcg/L 02/02/2021 7:09 DTL AM [employer] Specimen Anatomical Collection Method Collection Time Receive d Time (Source) Location / / Volume Laterality Blood (Blood, 02/01/2021 5:21 AM 02/02/20 5:52 Venous) [employer] AM [employer] Gerald England M.D. LAB BLOOD ADD-ON Performing Organization Address [facility] Phon e Number [facility] - [address] Lipid Panel (02/01/2021 5:21 AM [employer]) athologist Signature Cholesterol, 157 mg/dL 02/01/2021 DTL Total 6:27 AM [employer] Comment: ----REFERENCE VALUE---- Desirable: < 200 Borderline high: 200 - 239 High: > or = 240 Triglycerides 107 mg/dL 02/01/2021 6:27 AM [employer] DTL Comment: ----REFERENCE VALUE---- Normal: <150 Borderline high: 150-199 High: 200-499 Very high: > or =500 Cholesterol, HDL, S 88 >=50 mg/dL 02/01/2021 6:27 AM [employer] DTL Calculated LDL 48 mg/dL 02/01/2021 6:27 AM [employer] DT L Comment: ----REFERENCE VALUE---- Desirable: <100 Above Desirable: 100-129 Borderline high: 130-159 High: 160-189 Very high: > or =190 Cholesterol, Non-HDL, Calculated 69 mg/dL 021 6:27 AM [employer] DTL Comment: ----REFERENCE VALUE---- Desirable: <130 Above Desirable: 130-159 Borderline high: 160-189 High: 190-219 Very high: > or =220 Specimen Anatomical Collection Method Collection Time Receive d Time (Source) Location / / Volume Laterality Blood (Blood, 02/01/2021 5:21 AM 02/02/20 5:52 Venous) [employer] AM [employer] Gerald England M.D. LAB BLOOD ADD-ON Performing Organization Address City/[facility]/ZIP Code Phon e Number [facility] - 200 [place], [place] [address] [facility] [place] [place] [address] [facility] 200 [facility] ECG 12 Lead (01/31/2021 11:35 PM [employer]) P athologist Signature Ventricular Rate 60 BPM MUSE ECG/Min VT Interval 170 ms MUSE QRSD Interval 88 ms MUSE QT Interval 434 ms MUSE QTC Interval 434 ms MUSE P [place] 31 degrees MUSE R [place] -16 degrees MUSE T Wave [place] 3 degrees MUSE Specimen Anatomical Collection Method Collection Time Receive d Time (Source) Location / / Volume Laterality 01/31/2021 11:35 02/01/2021 6:10 PM [employer] AM [employer] Impressions MUSE - 02/01/2021 6:10 AM [employer] Normal sinus rhythm Minimal voltage criteria for [...] England M.D. ECG ORDERABLES Performing Organization Address City/[facility]/ZIP Code Phon e Number MUSE MUSE NA SARS Coronavirus 2, RNA, Rapid POC, V Asymptomatic (01/31/2021 10:32 PM [employer]) Patholo gist Method Time Signature SARS Undetected Undetected 01/31/2021 DTLR Coronavirus-2 10:52 PM [employer] , RNA, Rapid POC, V Comment: Negative for SARS-CoV-2. The [employer] COVID-19 test is a molecular shahzad t for SARS-CoV-2, the virus that causes COVID- 19. A Negative result means that the [employer] COV ID-19 test did not detect SARS-CoV-2 virus in your sample. [employer] COVID-19 test uses the Take the Interview nitoring System. This test has received Emergency Use Authorization (EUA) by the U.S. Food and Drug Administration (FDA) and is used per man ufacturer instructions. Performance characteristic s were verified by [facility] in a manner consistent with CLIA requirements. Fact sheets for this Emerg ency Use Authorization (EUA) can be found at the following links: Providers: [email or web address] Patients: [email or web address] SARS Coronavirus 2, Source Nasopharynx DEFAULT 01/31/2021 10:52 PM [employer] DTLR Specimen Anatomical Collection Method Collection Time Receive d Time (Source) Location / / Volume Laterality Varies 01/31/2021 10:32 01/31/2021 (Nasopharynx) PM [employer] 10:32 PM [employer] Nan Rios M.D. LAB MICROBIOLOGY - GENERAL O RDERABLES Performing Organization Address City/State/ZIP Code Phon e Number PERFORMING LABS, [place] [address] INTERFACE Ref Interface 200 [facility] DTLR Performing Labs, [place] [address] Interface 200 [facility] Electrolyte (Chem 4) Panel (01/31/2021 9:44 PM [employer]) P athologist Signature Potassium, P 4.0 3.6 - 5.2 01/31/2021 STMA mmol/L 10:06 PM [employer] Sodium, P 137 135 - 145 01/31/2021 STMA mmol/L 10:06 PM [employer] Chloride, P 104 98 - 107 01/31/2021 STMA mmol/L 10:06 PM [employer] Bicarbonate, P 24 22 - 29 01/31/2021 STMA mmol/L 10:06 PM [employer] Anion Gap, P 9 7 - 15 01/31/2021 STMA 10:06 PM [employer] Specimen Anatomical Collection Method Collection Time Receive d Time (Source) Location / / Volume Laterality Blood (Blood, 01/31/2021 9:44 PM 02/01/20 21 9:56 Venous) [employer] PM [employer] Gerald England M.D. LAB BLOOD ADD-ON Performing Organization Address City/State/ZIP Code Phon e Number [facility] - [address] [place], [place] [address] [facility] [place] [address] [facility] [address] [facility] (ABNORMAL) Prothrombin Time (PT) (01/31/2021 9:44 PM [employer]) Patholo gist Method Time Signature Prothrombin 15.5 (H) 9.4 - 12.5 01/31/2021 DTL Time, P sec 10:27 PM [employer] INR 1.4 0.9 - 1.1 01/31/2021 DTL 10:27 PM [employer] Comment: ----ADDITIONAL INFORMATION---- Standard intensity warfarin therapeutic range: 2.0 to 3.0 ?? High intensity warfarin therapeutic rang e: 2.5 to 3.5 Specimen Anatomical Collection Method Collection Time Receive d Time (Source) Location / / Volume Laterality Blood (Blood, 01/31/2021 9:44 PM 02/01/20 21 Venous) [employer] 10:06 PM [employer] Gerald England M.D. LAB BLOOD ADD-ON Performing Organization Address City/State/ZIP Code Phon e Number [facility] - [address] [place], [place] [id number] [place] [address] [address] [facility] APTT (Activated Partial Thromboplastin Time) (01/31/2021 9:44 PM [employer]) P athologist Signature Activated 35 25 - 37 sec 01/31/2021 DTL Partial 10:27 PM [employer] Thrombopl Time, P Specimen Anatomical Collection Method Collection Time Receive d Time (Source) Location / / Volume Laterality Blood (Blood, 01/31/2021 9:44 PM 02/01/20 21 Venous) [employer] 10:06 PM [employer] Gerald England M.D. LAB BLOOD ADD-ON Performing Organization Address City/State/ZIP Code Phon e Number [facility] - [address] [place] [address] [facility] [place] [address] [place] [address] [address] [facility] (ABNORMAL) Hemoglobin A1c (01/31/2021 9:44 PM [employer]) P athologist Signature Hemoglobin A1c, 6.1 (H) 4.0 - 5.6 01/31/2021 DTL B % 10:18 PM [employer] Comment: Hemoglobin A1c values of 5.7-6.4 percent indicate an increased risk for developing diabetes henrry skinner. In diabetic patients, HbA1c goals should be discussed with healthcare provider. Specimen Anatomical Collection Method Collection Time Receive d Time (Source) Location / / Volume Laterality Blood (Blood, 01/31/2021 9:44 PM 02/01/20 21 Venous) [employer] 10:06 PM [employer] Gerald England M.D. LAB BLOOD ADD-ON Performing Organization Address City/State/ZIP Code Phon e Number [facility] - 200 [place], [place] [address] [facility] [place] [address] [facility] [address] [facility] (ABNORMAL) CBC with Differential, Blood (01/31/2021 9:44 PM [employer]) Patholo gist Method Time Signature Hemoglobin 11.1 (L) 11.6 - 01/31/2021 DTL 15.0 g/dL 10:12 PM [employer] Hematocrit 34.9 (L) 35.5 - 01/31/2021 DTL 44.9 % 10:12 PM [employer] Erythrocytes 3.84 (L) 3.92 - 01/31/2021 DTL 5.13 10:12 PM [employer] x10(12)/L MCV 90.9 78.2 - 01/31/2021 DTL 97.9 fL 10:12 PM [employer] RBC Distrib Width 14.4 12.2 - 01/31/2021 DTL 16.1 % 10:12 PM [employer] Platelet Count 326 157 - 371 01/31/2021 DTL x10(9)/L 10:12 PM [employer] Leukocytes 6.8 3.4 - 9.6 01/31/2021 DTL x10(9)/L 10:12 PM [employer] Neutrophils 4.91 1.56 - 01/31/2021 DTL 6.45 10:12 PM [employer] x10(9)/L Lymphocytes 1.52 0.95 - 01/31/2021 DTL 3.07 10:12 PM [employer] x10(9)/L Monocytes 0.34 0.26 - 01/31/2021 DTL 0.81 10:12 PM [employer] x10(9)/L Eosinophils 0.03 0.03 - 01/31/2021 DTL 0.48 10:12 PM [employer] x10(9)/L Basophils 0.03 0.01 - 01/31/2021 DTL 0.08 10:12 PM [employer] x10(9)/L Specimen Anatomical Collection Method Collection Time Receive d Time (Source) Location / / Volume Laterality Blood (Blood, 01/31/2021 9:44 PM 02/01/20 21 Venous) [employer] 10:06 PM [employer] Gerald England M.D. LAB BLOOD ADD-ON Performing Organization Address City/[facility] Code Phon e Number [facility] - [address] S-TSH (Thyroid-Stimulating Hormone - Sensitive) (01/31/2021 9:44 PM [employer]) P athologist Signature TSH, Sensitive 0.3 0.3 - 4.2 01/31/2021 DTL mIU/L 10:59 PM [employer] Specimen Anatomical Collection Method Collection Time Receive d Time (Source) Location / / Volume Laterality Blood (Blood, 01/31/2021 9:44 PM 02/01/20 21 Venous) [employer] 10:06 PM [employer]NA[employer] Gerald England M.D. LAB BLOOD ADD-ON Performing Organization Address City/State/[facility] Code Phon e Number [facility] - 200 [place], [place] [address] [place] [address] AST (Aspartate Aminotransferase) (01/31/2021 9:44 PM [employer]NA[employer]) Patholo gist Method Time Signature Aspartate 23 8 - 43 01/31/2021 DTL Aminotransferase U/L 10:59 PM [employer] (AST), S Specimen Anatomical Collection Method Collection Time Receive d Time (Source) Location / / Volume Laterality Blood (Blood, 01/31/2021 9:44 PM 02/01/20 21 Venous) [employer] 10:06 PM [employer] Gerald England M.D. LAB BLOOD ADD-ON Performing Organization Address City/[facility] Phon e Number [facility] - [id number] [place] [address] ALT (Alanine Aminotransferase) (01/31/2021 9:44 PM MANA[employer]) [facility] gist Method Time Signature Alanine 15 7 - 45 01/31/2021 DTL Aminotransferase U/L 10:59 PM [employer] (ALT), S Specimen Anatomical Collection Method Collection Time Receive d Time (Source) Location / / Volume Laterality Blood (Blood, 01/31/2021 9:44 PM 02/01/20 21 Venous) [employer] 10:06 PM MANA[employer] Gerald England M.D. LAB BLOOD ADD-ON Performing Organization Address [facility] Phon e Number [facility] - [id number] [place] [address] documented in this encounter Visit Diagnoses Diagnosis Stroke (HCC) Chronic Pain Syndrome Stroke Cerebrovascular Accident Personal History documented in this encounter Admitting Diagnoses Diagnosis Stroke (HCC) documented in this encounter Administered Medications Inactive Administered Medications - up to 3 most recent administrations Medication Order MAR Action Action Date Dose Rate Site acetaminophen tablet 1,000 mg Given 02/03/2021 6:56 AM [employer] 1,000 mg (TYLENOL) 1,000 mg, oral, Every 6 hours PRN, mild pain or score 1-3 of 10, moderate pain or score 4-6 of 10, headaches, Starting on 02/01/21 at 0210 Given 02/02/2021 2:36 PM [employer] 1,000 mg Given 02/02/2021 8:53 AM [employer] 1,000 mg albuterol 90 mcg/actuation inhaler 2 puf f Given 02/03/2021 4:29 AM [employer] 2 puffs 2 puff, inhalation, Every 6 hours PRN, wheezing, shortness of breath, Starting on 02/01/21 at 1115 apixaban tablet 5 mg (ELIQUIS) Given 02/03/2021 9:30 AM [employer] 5 mg 5 mg, oral, 2 times daily, First dose on 02/02/21 at 2100 Given 02/02/2021 8:09 PM [employer] 5 mg aspirin tablet 325 mg Given 02/02/2021 8:11 AM [employer] 325 mg 325 mg, oral, Daily, First dose on 02/01/21 at 1030 Given 02/01/2021 10:54 AM [employer] 325 mg atorvastatin tablet 40 mg (LIPITOR) Given 02/02/2021 8:09 PM [employer] 40 mg 40 mg, oral, Daily at [...] 25 m cg Given 02/03/2021 9:29 AM [employer] 25 mcg 25 mcg, oral, Daily, First dose on 02/01/21 at 0900, cholecalciferol (vitamin D3) orderable was interchanged for cholecalciferol (vitamin D3) tablet/capsule Given 02/02/2021 8:10 AM [employer] 25 mcg Given 02/01/2021 9:11 AM MANA[employer] 25 mcg cyanocobalamin tablet 2,000 mcg (VITAMIN Given 02/03/2021 9: 28 AM [employer] 2,000 mcg B12) 2,000 mcg, oral, Daily, First dose on 02/01/21 at 0900 Given 02/02/2021 8:08 AM [employer] 2,000 mcg Given 02/01/2021 9:11 AM [employer]NA[employer] 2,000 mcg diazePAM tablet 10 mg (VALIUM) Given 02/03/2021 10:51 AM [employer] 10 mg 10 mg, oral, 2 times daily PRN, anxiety, Starting on 02/01/21 at 1016 Given 02/02/2021 10:24 PM [employer] 10 mg Given 02/02/2021 8:53 AM [employer] 10 mg docusate sodium 283 mg/5 mL enema 1 enem a (ENEMEEZ) 1 enema, rectal, 2 times daily PRN, cons tipation, Starting on 01/31/21 at 2125, If no bowel movement within 24 hours of starting bisac odyl FLUoxetine capsule 80 mg (PROzac) Given 02/03/2021 9:28 AM [employer] 80 mg 80 mg, oral, Daily, First dose on Tue02/01/21 at 0900, FLUoxetine orderable was interchanged for FLUoxetine tablet/capsule Given 02/02/2021 8:10 AM [employer] 80 mg Given 02/01/2021 9:10 AM [employer] 80 mg folic acid tablet 800 mcg Given 02/03/2021 9:29 AM [employer] 800 mcg 800 mcg, oral, Every morning, First dose on Tue02/01/21 at 0900 Given 02/02/2021 8:14 AM [employer] 800 mcg Given 02/01/2021 10:00 AM [employer] 800 mcg furosemide tablet 40 mg (LASIX) Given 02/03/2021 9:29 AM [employer] 40 mg 40 mg, oral, 2 times daily, First dose on Tue02/02/21 at 0900 Given 02/02/2021 6:25 PM [employer] 40 mg Given 02/02/2021 8:10 AM [employer] 40 mg gadobutrol injection 0.01-30 mL (GADAVIS T) Given 02/03/2021 12:35 PM [employer] 8 mL 0.01-30 mL, intravenous, Once in imaging, contrast, Starting on Tue02/03/21 at 1235, For 1 dose, Imaging Protocol Orders, Dose per Radiant Medication Guidelines heparin (porcine) Given 02/02/2021 6:29 AM [employer]NA[employer] 5,000 Units Left Lower Abdomen injection 5,000 Units 5,000 Units, subcutaneous, Every 8 hours scheduled, First dose on Tue02/01/21 at 0600 Given 02/01/2021 9:17 PM [employer] 5,000 Units Right Lower Abdomen Given 02/01/2021 1:56 PM [employer] 5,000 Units Right Lower Abdomen lamoTRIgine tablet 200 mg (LaMICtal) Given 02/03/2021 9:29 AM [employer] 200 mg 200 mg, oral, 2 times daily, First dose (after last modification) on 01/31/21 at 2245 Given 02/02/2021 8:09 PM [employer] 200 mg Given 02/02/2021 8:11 AM [employer] 200 mg lidocaine 5 % 1 patch Medication Applied 01/31/2021 10:44 PM 1 patch Upper Back (LIDODERM) [employer] 1 patch, transdermal, Administer over 12 Hours, Daily, First dose on 01/31/21 at 2200, Remove after 12 hours. lidocaine 5 % ointment 1 application Given 02/02/2021 2:33 A M [employer] 1 application (XYLOCAINE) 1 application, topical, 3 times daily PRN, mild pain or score 1-3 of 10, Starting on 02/01/21 at 1114, MAX of 20 g of ointment/day Given 02/01/2021 5:18 PM [employer] 1 application loratadine tablet 10 mg (CLARITIN) Given 02/03/2021 9:30 AM [employer] 10 mg 10 mg, oral, Daily, First dose on 02/01/21 at 0900, loratadine 10 mg oral daily was interchanged for cetirizine 5 mg oral twice daily Given 02/02/2021 8:11 AM [employer] 10 mg Given 02/01/2021 9:12 AM [employer]NA[employer] 10 mg magnesium oxide tablet 400 mg (MAG-OX) Given 02/02/2021 8:09 PM [employer] 400 mg 400 mg, oral, Daily at bedtime, First dose on 02/01/21 at 2100, magnesium oxide 400 mg daily was interchanged for magnesium gluconate 500 mg daily Given 02/01/2021 9:17 PM [employer] 400 mg meclizine tablet 25 mg (ANTIVERT) Given 02/02/2021 3:01 AM [employer] 25 mg 25 mg, oral, 3 times daily PRN, dizziness, Starting on 02/01/21 at 0211 Given 02/01/2021 9:19 AM [employer] 25 mg meclizine tablet 25 mg (ANTIVERT) Given 02/02/2021 8:09 PM MANA[employer] 25 mg 25 mg, oral, 4 times daily PRN, dizziness, Starting on 02/02/21 at 1345 nicotine 10 mg inhaler 1 puff (NICOTROL) 1 puff, inhalation, As needed, smoking c essation, Starting on Tue02/03/21 at 1318, Inhale with continuous puffing over 20 m inutes; Initial 6 to 16 cartridges per day; MAX 16 cartridges per day. nicotine 14 mg/24 hr 1 Medication Applied 02/03/2021 9:27 AM 1 patch Left Shoulder patch (NICODERM CQ) [employer] 1 patch, transdermal, Administer over 24 Hours, Daily, First dose on 02/01/21 at 0900 Medication Applied 02/02/2021 8:14 AM [employer] 1 patch Right Arm Medication Applied 02/01/2021 9:13 AM [employer]NA[employer] 1 patch Left Shoulder nicotine 21 mg/24 hr 1 Medication Applied 02/03/2021 2:55 PM 1 patch Left Shoulder patch (NICODERM CQ) [employer] 1 patch, transdermal, Administer over 24 Hours, Daily, First dose on Tue02/03/21 at 1330 ondansetron ODT disintegrating tablet 4 mg Given 02/02/2021 10:2 4 PM [employer] 4 mg (ZOFRAN-ODT) 4 mg, oral, Every 8 hours PRN, nausea, Starting on 01/31/21 at 2228, When splitting ODT at bedside, handle with gloves and a pill splitter to prevent moisture contact. Given 02/02/2021 2:36 PM [employer] 4 mg Given 02/01/2021 1:12 AM [employer] 4 mg oxyCODONE IR tablet 10 mg (ROXICODONE) Given 02/03/2021 5:02 PM [employer] 10 mg 10 mg, oral, Every 6 hours PRN, moderate pain or score 4-6 of 10, Starting on 01/31/21 at 2229 Given 02/03/2021 2:42 AM [employer] 10 mg Given 02/02/2021 8:08 PM [employer] [address] tablet 40 mg (PROTONIX) Given 02/03/2021 4:58 PM [employer] 40 mg 40 mg, oral, 2 times daily before breakfast and dinner, First dose on 02/01/21 at 0700, pantoprazole 40 mg oral twice daily was interchanged for esomeprazole 20 or 40 mg oral twice daily Swallow whole. Do NOT crush, chew, or split tablet. Given 02/03/2021 6:56 AM [employer] 40 mg Given 02/02/2021 6:25 PM [employer] 40 mg pregabalin capsule 150 mg (LYRICA) Given 02/01/2021 9:12 AM [employer] 150 mg 150 mg, oral, Every morning, First dose on 02/01/21 at 0900 pregabalin capsule 300 mg (LYRICA) Given 01/31/2021 11:16 PM [employer] 300 mg 300 mg, oral, Every evening, First dose on 01/31/21 at 2300 pregabalin capsule 300 mg (LYRICA) Given 02/03/2021 9:28 AM [employer] 300 mg 300 mg, oral, Every morning, First dose (after last modification) on 02/02/21 at 0900 Given 02/02/2021 8:10 AM [employer] 300 mg pregabalin capsule 600 mg (LYRICA) Given 02/02/2021 8:09 PM [employer] 600 mg 600 mg, oral, Daily at bedtime, First dose (after last modification) on 02/01/21 at 2100 Given 02/01/2021 9:17 PM [employer] 600 mg promethazine injection 6.25 mg (PHENERGA N) Given 02/01/2021 12:47 PM [employer] 6.25 mg 6.25 mg, intravenous, Once, On 02/01/21 at 1030, For 1 dose QUEtiapine tablet 50 mg (SEROquel) Given 02/03/2021 12:39 AM [employer] 50 mg 50 mg, oral, Bedtime PRN, agitation/sleep, Starting on 02/01/21 at 1310 rOPINIRole tablet 2 mg (REQUIP) Given 02/03/2021 2:42 AM MANAGER LEADERSHIP DEVELOPMENT 2 mg 2 mg, oral, Daily PRN, restless legs, Starting on 01/31/21 at 2233 sennosides-docusate sodium 8.6-50 mg per Given 02/03/2021 9: 27 AM MANAGER LEADERSHIP DEVELOPMENT 2 tablets tablet 2 tablet (SENOKOT-S) 2 [...] 300 mg (ZONEGRAN) Given 02/03/2021 9:28 AM MANAGER LEADERSHIP DEVELOPMENT 300 mg 300 mg, oral, 2 times daily, First dose (after last modification) on 01/31/21 at 2245, Swallow whole. Do NOT crush, chew or open capsule. Given 02/02/2021 8:09 PM MANAGER LEADERSHIP DEVELOPMENT 300 mg Given 02/02/2021 8:53 AM MANAGER LEADERSHIP DEVELOPMENT 300 mg documented in this encounter Active and Recently Administered Medications Times are shown in MANAGER LEADERSHIP DEVELOPMENT. Scheduled Medication Order 02/01/2021 02/02/2021 02/03/2021 apixaban tablet 5 mg (ELIQUIS) 2008 (Given - Pro vider: Marlene Grover R.N.) 0930 (Given - Provider: Karma Cervantes R.N.) 5 mg, oral, 2 times daily, First dose on Tue02/02/21 at 2100 aspirin tablet 325 mg (CANCELED) 1054 (Given - Provide r: Valarie Grayson R.N.) 0811 (Given - Provider: Leatha Vasquez R.N.) 325 mg, oral, Daily, First dose on 02/01/21 at 1030 atorvastatin tablet 40 mg (LIPITOR) 2008 (Given - Provider: Marlene Grover R.N.) 40 mg, oral, Daily at bedtime, First dose on Tue02/02/21 at 2100 cholecalciferol (vitamin D3) tablet 25 [...] R.N.) 0928 (Given - Provider: Karma Cervantes RBetsy) 80 mg, oral, Daily, First dose on [...] R.N.)1658 (Not Given - Provider: Sofie Sutton RBrittonNBritton - Reason: Patient/family refused) 40 mg, oral, 2 times daily, First dose on 02/02/21 at 0900 heparin (porcine) injection 5,000 Units (CANCELED) 055 0 (Given - Provider: Rica Jon RBrittonNBritton)1356 (Given - Provider: Valarie Grayson R.N.)2117 (Given - Provider: Mague Rudolph RBrittonNBritton) 0629 (Given - Provider: Mague Rudolph RBrittonNBritton) 5,000 Units, subcutaneous, Every 8 hours scheduled, First dose on 02/01/21 at 0600 lamoTRIgine tablet 200 mg (LaMICtal) 0910 (Given - Pro vider: Valarie Grayson R.N.)211 (Given - Provider: Mague Rudolph R.N.) 0811 (Given - Provider: Leatha Vasquez R.N.)2008 (Given - Provider: Marlene Grover RBrittonNBritton) 0929 (Given - Provider: Karma Cervantes R.N.) 200 mg, oral, 2 times daily, First dose (after last modification) on 01/31/21 at 2245 loratadine tablet 10 mg (CLARITIN) 0912 (Given - Provi marquis: Valarie Grayson RBetsy) 0811 (Given - Provider: Leatha Vasquez R.N.) [...] R.N.) 0656 (Given - Provider: Marlene Grover RBetsy)1658 (Given - Provider: Sofie Sutton R.N.) 40 mg, oral, 2 times daily before breakf ast and dinner, First dose on 02/01/21 at 0700, pantoprazole 40 mg oral twice daily was interchanged for esomeprazole 20 or 40 mg oral twice daily Swallow whole. Do NOT crush, chew, or split tablet. pregabalin capsule 150 mg (LYRICA) (CANCELED) 0912 (Gi saeid - Provider: Valarie Grayson RBetsy) 150 mg, oral, Every morning, First dose on 02/01/21 at 0900 pregabalin capsule 300 mg (LYRICA)(Linked Group 1) 0810 (Given - Provider: Leatha Vasquez RBetsy) 0928 (Given - Provider: Karma Cervantes R.N.) 300 mg, oral, Every morning, First dose (after last modification) on Tue02/02/21 at 0900 pregabalin capsule 600 mg (LYRICA)(Linked Group 1) 211 7 (Given - Provider: Mague Rudolph RBetsy) 2008 (Given - Provider: Marlene Grover R.N.) [...] (See Alternative - Provider: Leatha Vasquez R.N.) 09 (See Alternative - Provider: Karma Cervantes R.N.) 2 tablet, gastric tube, Daily, First dos e on 02/01/21 at 0900, While on opioids. Do not give if patient has diarrhea. zonisamide capsule 300 mg (ZONEGRAN) 911 (Given - Pro vider: Valarie Grayson R.N.)2116 (Given - Provider: Mague Rudolph R.N.) 0853 (Given - Provider: Leatha Vasquez R.N.)2008 (Given - Provider: Marlene Grover R.N.) 09 (Given - Provider: Karma Cervantes R.N.) 300 [...] 0853 (Giv en - Provider: Leatha Vasquez R.N.)2224 (Given - Provider: Marlene Grover R.N.) 1051 (Given - Provider: Karma Cervantes RBetsy) 10 mg, oral, 2 times daily PRN, [...] Once in imaging , contrast, Starting on Tu02/03/21 at 1235, For 1 dose, Imaging Protocol Orders, Dose per Radiant Medication Guidelines lidocaine 5 % ointment 1 application (XYLOCAINE) 1718 (Given - Provider: Valarie Grayson R.N.) 0233 (Given - Provider: Mague Rudolph RBetsy) 1 application, topical, 3 times daily VT N, mild pain or score 1-3 of [...] ) 0112 (Given - Provider: Rica Jon RBetsy) 1436 (Given - Provider: Leatha chavez RBrittonNBritton)2224 (Given - Provider: Marlene Grover R.N.) 4 mg, oral, Every 8 hours PRN, nausea, S tarting on 01/31/21 at 2228, When splitting ODT at bedside, handle with gloves and a pill splitter to prevent moisture contact. oxyCODONE IR tablet 10 mg (ROXICODONE) 0919 (Given - P rovider: Valarie Grayson R.N.)1612 (Given - Provider: Valarie Grayson R.N.) 0232 (Given - Provider: Mague Rudolph R.N.)1353 (Given - Provider: Leatha Vasquez RBrittonNBritton)2007 (Given - Provider: Marlene Grover R.N.) 0242 (Given - Provider: Marlene M Grover, R.N.)1702 (Given - Provider: Sofie Sutton R.N.) [...] tablet 4 mg (ZANAFLEX) 0210 (Held by [facility] er - Provider: Marbella Cutler M.D. - Comment: Sedation) 1925 (Unheld [address] [facility] ider - Provider: Discharge Provider, Automatic) 4 [...] (after last modification) on Tue02/01/21 at 2100 Group 2: sennosides-docusate sodium 8.6-50 [...] COVID19 Pending 01/31/2021 01/31/2021 01/31/2021 10:53 PM MANAGER LEADERSHIP DEVELOPMENT Assessment Noted Time PHQ-9 Depression Total Score: 23 02/02/2021 11:[address] documented as of this encounter
--- OUTSIDE RECORDS SUMMARY | 2022-08-14 17:55 | XMS_ITS | Encounter Summary ---
:1965 Author Organization [facility] Address [address] [place] [address] Care Team Providers Name Role Phone Unavailable Primary Care Provider Unavailable Encounter Details Date Type Department Care Team Description 12/08/2019 Documentation Department of Darlin Olmedo, Otorhinolaryngology in [place], [place] [address] [place] [address] 200 [place] [address] [phone] Social History Tobacco Use Types Packs/Day Years [...] you attend pentecostalism or Patient refused 2021 christianity services? Do [...] she is currently having. -Dr. Clemente Medley ER COMMENTATOR documented in this encounter Plan of Treatment Upcoming Encounters Date Type Specialty Care Team Description 09/01/2022 Clinical Communication Admitting/Central Scheduling 09/06/2022 Appointment Radiology Alfredo Herrera O.P.A.-C. [address] [place] [phone] 09/06/2022 Office Visit Orthopedic Surgery Cyrus Polk M.D. [address] [place] [phone] documented as of this encounter Visit Diagnoses Not on filedocumented in this encounter Additional Health Concerns Assessment Noted Time PHQ-9 Depression Total Score: 5 04/05/2019 8:00 AM CDT documented as of this encounter
--- OUTSIDE RECORDS SUMMARY | 2022-08-14 17:55 | XMS_ITS | Encounter Summary ---
:1965 Author Organization [facility] Address [address] [place] [address] Care Team Providers Name Role Phone Unavailable Primary Care Provider Unavailable Reason for Visit Reason Comments Michel Encounter Details Date Type Department Care Team Description 09/11/2020 Clinical Communication Department of Robert Diehl W8B/Scharf Neurology in [place], [place] 200 [facility] 200 [place] [phone] [phone] Social History Tobacco Use Types Packs/Day Years [...] you attend muslim or Patient refused 2021 evangelical services? Do [...] Appointment Radiology Alfredo Herrera O.P.A.-C. [address] [place] [address] 09/06/2022 Office Visit Orthopedic Surgery Cyrus Polk M.D. [address] [place] [address] documented as of this encounter Visit Diagnoses Not on filedocumented in this encounter Additional Health Concerns Assessment Noted Time PHQ-9 Depression Total Score: 5 04/05/2019 8:00 AM CDT documented as of this encounter
--- OUTSIDE RECORDS SUMMARY | 2022-08-14 17:55 | XMS_ITS | Encounter Summary ---
:1965 Author Organization [facility] Address [address] [place] [address] Care Team Providers Name Role Phone Unavailable Primary Care Provider Unavailable Reason for Visit Reason Comments Initiate warfarin anticoagulation. Encounter Details Date Type Department Care Team Description 01/01/2021 Clinical Communication Department of Renny Mahoney warfarin Neurology in [place] anticoagulation. [address] [place] [phone] [place], [place] [phone] (Work) [phone] Social History Tobacco Use Types Packs/Day Years [...] you attend cheondoism or Patient refused 2021 baptism services? Do [...] PM CST RADHA Thompson, calls in from [facility] with INR results = 3.9. Please call her back at [phone] PAINTING MACHINE OPERATOR Telephone Encounter - Renny Mahoney R.N. - 01/05/2021 1:56 PM CST Mackenzie talked to her, she needs to go to the lab today. PAINTING MACHINE OPERATOR Telephone Encounter - Allyssa Amaya - 01/05/2021 11:14 AM CST Patient calls in regarding this. She is wanting this set up now so a nurse can come into her home and do this. She I believed mentions that a nurse comes into her home now. She would like a call to discuss. PAINTING MACHINE OPERATOR Telephone Encounter - Robert Diehl M.D. - 01/01/2021 4:46 PM CST Absolutely and thank you very much for coordinating this PAINTING MACHINE OPERATOR Addendum Note - Renny Mahoney R.N. - 01/01/2021 1:03 PM LINE PAINTING MACHINE OPERATOR Addended by: RENNY MAHONEY on: 01/01/2021 01:03 PM Modules accepted: Orders PAINTING MACHINE OPERATOR Telephone Encounter - Renny Mahoney R.N. - 01/01/2021 12:45 PM CST I spoke to the patient by telephone today to discuss reinitiating warfarin. The patient referred by Dr. Argenis Diehl ([id number]). The patient's target INR is 2.0-3.0. 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 The anticipated duration of warfarin is safety lamp keeper. As per Dr. Diehl, the patient is to be instructed to discontinue the 325 mg aspirin once the target INR is reached. The patient shares that she is well aware of the risks/benefits and process of taking warfarin with regular INR monitoring. She declined the need for additional education by phone regarding anticoagulation. She would like to have her INRs drawn at [facility] with results faxed to us [facility]. I spoke with her local primary care physician nurse about this as well. Once Dr. Diehl obtains imaging in about 3 months, we may consider transitioning her anticoagulation care to her local [facility]. The patient will take 5 mg warfarin nightly starting tonight 01/01/21, then have an INR drawn 01/05/21 at [facility] with results faxed to us. A prescription for warfarin 5 mg #30, take as directed, may refill X 1 was eprescribed to [facility]. The patient reported an adequate understanding of her plan of care and expressed agreement with thisplan. RECOMMENDED LEVEL OF CARE. The patient/caller is willing and able to follow the nurse's recommendation. RESPONSE TO ADVICE GIVEN. Patient/caller able to teach back. REFERENCES UTILIZED. Nursing clinical judgment utilized. Other interventions or information: Provider advice. TYPE OF PHONE CALL. Medical information, care coordination. . PAINTING MACHINE OPERATOR Addendum Note - Renny Mahoney R.N. - 01/01/2021 9:43 AM LINE PAINTING MACHINE OPERATOR Addended by: RENNY MAHONEY on: 01/01/2021 09:43 AM Modules accepted: Orders PAINTING MACHINE OPERATOR Telephone Encounter - Renny Mahoney R.N. - 01/01/2021 9:32 AM CST I have spoken with the pharmacist at [facility] in [place]. He notes that in 2018 when thepatient previously was treated with warfarin, she was taking 5 mg nightly for a period of time. Eventually some nights she was taking 7.5 mg nightly. The pharmacist reviewed potential medication interactions with the patient's current medication list. No serious interactions anticipated. As per Dr. Yeboah ([id number]), we will initiate 5 mg nightly. She will continue aspirin until therapeutic INR is reached. PAINTING MACHINE OPERATOR Telephone Encounter - Renny Mahoney R.N. - 01/01/2021 8:47 AM CST The patient has been experiencing episodes of vertigo, gait instability, with a fall, she was seen in the ED of [facility] on 12/22/20. Head CT was performed and sent to [facility] for Dr. Diehl's review. He noted possible [...] the patient's primary care team at the [facility]. I have discussed this with the patient who reports an ad equate understanding and agreement with this plan. RECOMMENDED LEVEL OF CARE. The patient/caller is willing and able to follow the nurse's recommendation. RESPONSE TO ADVICE GIVEN. Patient/caller able to teach back. REFERENCES UTILIZED. Nursing clinical judgment utilized. Other interventions or information: Provider advice. TYPE OF PHONE CALL. Care coordination. PAINTING MACHINE OPERATOR Telephone Encounter - Renny Mahoney R.N. - 01/01/2021 8:46 AM CST ----- Message from Robert Diehl M.D. sent at 12/31/2020 5:17 PM LINE PAINTING MACHINE OPERATOR ----- I called and discussed the results [...] by: Robert Diehl M.D. 12/31/20 5:16 PM LINE PAINTING MACHINE OPERATOR Stroke Cerebrovascular Accident Personal History Plan: CT Head without IV Contrast, CT Head without IV Contrast Ataxia Plan: CT Head Neck Angiogram with IV Contrast, CT Head Neck Angiogram with IV Contrast PAINTING MACHINE OPERATOR documented in this encounter Plan of Treatment Upcoming Encounters Date Type Specialty Care Team Description 09/01/2022 Clinical Communication Admitting/Central Scheduling 09/06/2022 Appointment Radiology Alfredo Herrera O.PBrittonABritton-CBritton [address] [place] [address] 09/06/2022 Office Visit Orthopedic Surgery Cyrus Polk M.D. [address] [place] [address] Scheduled Orders Name Type Priority Associated Diagnoses Order S chedule Prothrombin Time (PT) Lab Routine Net Architect Anticoagu lant 50 Occurrences starting Treatment 01/01/2021 unti l 01/01/2024 documented as of this encounter Visit Diagnoses Diagnosis Longterm (Current) Anticoagulant Treatm ent - Primary documented in this encounter Additional Health Concerns Assessment Noted Time PHQ-9 Depression Total Score: 5 04/05/2019 8:00 AM CDT documented as of this encounter
--- OUTSIDE RECORDS SUMMARY | 2022-08-14 17:55 | XMS_ITS | Encounter Summary ---
:1965 Author Organization [facility] Address [address] [place] [address] Care Team Providers Name Role Phone Unavailable Primary Care Provider Unavailable Reason for Referral Outpatient (Routine) - Closed Specialty Diagnoses / Procedures Referred By Contact Clyde bains To Contact Neurology Robert Diehl M. D. [facility] [address] [place] [address] Referral ID Status Reason Start Date Expiration Date Visits Requ ested Visits Authorized [id number] Closed 09/15/2020 09/15/2021 1 1 Reason for Visit Appointment Request (Routine) - Closed Specialty Diagnoses / Procedures Referred By Contact Clyde bains To Contact Neurology Referral ID Status Reason Start Date Expiration Date Visits Requ ested Visits Authorized [id number] Closed 07/31/2020 07/31/2021 1 1 Encounter Details Date Type Department Care Team Description 09/15/2020 Virtual Visit Department of Robert Diehl [place] An eurysm Nonruptured (HCC) (Primary Dx); Neurology in M.D. Nicotine Dependence ; [place], [place] [address] [facility] Aneurysm Cerebral Unruptured (HCC) [address] [place] [phone] Social History Tobacco Use Types Packs/Day Years [...] you attend judaism or Patient refused 2021 adventist services? Do [...] via the telephone and not in a bfvl-nx-veit manner. Ms. Mosquera is a 55-year-old woman [...] 09/06/2022 Appointment Radiology Alfredo Herrera O.P.A.-C. [address] [place] [phone] 09/06/2022 Office Visit Orthopedic Surgery Cyrus Polk M.D. [address] [place] [address] Scheduled Referrals Name Type Priority Associated Diagnoses Order [facility] Neu[facility] office Outpatient Referral Routine Expe [...] nt right vertebral artery. RADHA, MCA, and steam tender are patent. Neck MRA: Conventional three-vessel arch [...] nt right vertebral artery. RADHA, MCA, and steam tender are patent. Neck MRA: Conventional three-vessel arch [...]
--- OUTSIDE RECORDS SUMMARY | 2022-08-14 17:55 | XMS_ITS | Encounter Summary ---
:1965 Author Organization [facility] Address 200 [place] [address] Care Team Providers Name Role Phone Unavailable Primary Care Provider Unavailable Reason for Referral MRI/CAT/PET Scan (Routine) - Closed Specialty Diagnoses / Procedures Referred By Contact Refer red To Contact Radiology Diagnoses Robert Akhtar M.D. [facility] Procedures CT Head Neck Angiogram with IV Contrast 200 [place] [address] Referral ID Status Reason Start Date Expiration Date Visits Requ ested Visits Authorized [id number] Closed 12/30/2020 12/30/2021 1 1 [place] WELFARE CLERK MRI/CAT/PET Scan (Routine) - Closed Specialty Diagnoses / Procedures Referred By Contact Refer red To Contact Radiology Diagnoses Stroke Cerebrovascular Accident Personal History Robert Diehl M.D. [facility] Procedures CT Head without IV Contrast [address] [place] [address] Referral ID Status Reason Start Date Expiration Date Visits Requ ested Visits Authorized [id number] Closed 12/30/2020 12/30/2021 1 1 [place] WELFARE CLERK Reason for Visit MRI/CAT/PET Scan (Routine) - Closed Specialty Diagnoses / Procedures Referred By Contact Refer red To Contact Radiology Diagnoses Ataxia Robert Diehl M.D. [facility] Procedures CT Head Neck Angiogram with IV Contrast [address] [place] [address] Referral ID Status Reason Start Date Expiration Date Visits Requ ested Visits Authorized [id number] Closed 12/30/2020 12/30/2021 1 1 Encounter Details Date Type Department Care Team Description 12/31/2020 Hospital Encounter Department of Robert Diehl Stroke Cerebrovascular Accident Personal History; Radiology, Severiano Celaya M.D. [facility], in [address] [place] [phone] [place] [address] [place], [place] (Work) [phone] Social History Tobacco Use Types Packs/Day Years [...] you attend mormonism or Patient refused 2021 mosque services? Do [...] Robert Diehl M.D. - 12/31/2020 5:17 PM SOCIAL WELFARE CLERK I called and discussed the results with [...] by: Robert Diehl M.D. 12/31/20 5:16 PM SOCIAL WELFARE CLERK Stroke Cerebrovascular Accident Personal History Plan: CT Head without IV Contrast, CT Head without IV Contrast Ataxia Plan: CT Head Neck Angiogram with IV Contrast, CT Head Neck Angiogram with IV Contrast [place] WELFARE CLERK documented in this encounter Plan of Treatment Upcoming Encounters Date Type Specialty Care Team Description 09/01/2022 Clinical Communication Admitting/Central Scheduling 09/06/2022 Appointment Radiology Alfredo Herrera O.P.A.-C. [address] [place] [phone] 09/06/2022 Office Visit Orthopedic Surgery Cyrus Polk M.D. [address] [place] [phone] documented as of this encounter Procedures Procedure Name Priority Date/Time Associated Diagnosis Comme nts CT HEAD WITHOUT RAD - Routine 12/31/2020 3:34 Stroke Results for IV CONTRAST (most inpatients PM SOCIAL WELFARE CLERK Cerebrovascular this pro cedure and all Accident Personal are in the outpatients) History results section. CT HEAD NECK RAD - Routine 12/31/2020 3:34 Ataxia Results for ANGIOGRAM WITH (most inpatients PM SOCIAL WELFARE CLERK this proc edure IV CONTRAST and all are in the outpatients) results section. documented in this encounter Results CT Head Neck Angiogram with IV Contrast (12/31/2020 3:34 PM SOCIAL WELFARE CLERK) Anatomical Region Laterality Modality Head and Neck, Neuroradiology RST LOS, N/A C omputed Tomography, Computed Neuroradiology ARZ LOS, Neuroradiology T omography FLA [facility] Specimen (Source) Anatomical Collection Method Collection Time Re ceived Time Location / / Volume Laterality 12/31/2020 3:49 PM SOCIAL WELFARE CLERK Impressions 12/31/2020 4:54 PM SOCIAL WELFARE CLERK 1. Evolving right cerebellar infarct with decreased [...] oid ICA aneurysms. Narrative 12/31/2020 4:54 PM SOCIAL WELFARE CLERK EXAM: CT HEAD WITHOUT IV CONTRAST, CT [...] discussed with ordering physici Dr. Fazal abbasi ([id number]) at 4:54 PM on 12/31/2020. Procedure Note [...] discussed with ordering physici Dr. Fazal abbasi ([id number]) at 4:54 PM on 12/31/2020. IMPRESSION: 1. 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 Authorizing Provider Result Selma NIELSON CT PROCEDURES CT Head without IV Contrast (12/31/2020 3:34 PM SOCIAL WELFARE CLERK) Anatomical Region Laterality Modality Head, Neuroradiology RST LOS, N/A Computed T omography, Computed Neuroradiology ARZ LOS, Neuroradiology T omography FLA LOS Specimen (Source) Anatomical Collection Method Collection Time Re ceived Time Location / / Volume Laterality 12/31/2020 3:49 PM SOCIAL WELFARE CLERK Impressions 12/31/2020 4:54 PM SOCIAL WELFARE CLERK 1. Evolving right cerebellar infarct with decreased [...] oid ICA aneurysms. Narrative 12/31/2020 4:54 PM SOCIAL WELFARE CLERK EXAM: CT HEAD WITHOUT IV CONTRAST, CT [...] Findings discussed with ordering Dr. Fazal ching ([id number]) at 4:54 PM on 12/31/2020. Procedure Note [...] Findings discussed with ordering physici anDr. Diehl ([id number]) at 4:54 PM on 12/31/2020. IMPRESSION: 1. 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 Authorizing Provider Result Selma NIELSON CT PROCEDURES documented in this encounter Visit Diagnoses Diagnosis Stroke Cerebrovascular Accident Personal History Ataxia documented in this encounter Administered Medications Inactive Administered Medications - up to 3 most recent administrations Medication Order MAR Action Action Date Dose Rate Site iohexoL 350 mg iodine/mL solution Given 12/31/2020 3:34 PM SOCIAL WELFARE CLERK 1 00 mL 1-200 mL (OMNIPAQUE) 1-200 mL, intravenous, Once in imaging, contrast, Starting on Tue12/31/20 at 1411, For 1 dose, Imaging Protocol Orders, Dose per Radiant Medication Guidelines sodium chloride (PF) 0.9 % injection 1-1 00 mL Given 12/31/2020 3:34 PM SOCIAL WELFARE CLERK 35 mL 1-100 mL, intravenous, Once, On Tue12/31/20 at 1415, For 1 dose, Imaging Protocol Orders documented in this encounter Additional Health Concerns Assessment Noted Time PHQ-9 Depression Total Score: 5 04/05/2019 8:00 AM CDT documented as of this encounter
--- OUTSIDE RECORDS SUMMARY | 2022-08-14 17:55 | XMS_ITS | Encounter Summary ---
:1965 Author Organization [facility] Address [address] [place] [address] Care Team Providers Name Role Phone Unavailable [...] you attend anabaptism or Patient refused 2021 mandaeism services? Do [...] Appointment Radiology Alfredo Herrera O.P.A.-C. [address] [place] [phone] 09/06/2022 Office Visit Orthopedic Surgery Cyrus Polk M.D. [address] [place] [phone] documented as of this encounter Procedures Procedure Name Priority Date/Time Associated Comments Diagnosis OTORHINOLARYNGOLOGY IMAGE Routine 12/18/2019 1:57 Results for this EXAM PM ADMITTANCE ATTENDANT procedure are i n the results section. documented in this encounter Results NOSE-Otorhinolaryngology Image Exam (12/18/2019 1:57 PM ADMITTANCE ATTENDANT) Specimen (Source) Anatomical Collection Method Collection Time Re ceived Time Location / / Volume Laterality 12/18/2019 1:57 PM ADMITTANCE ATTENDANT Narrative IIMS - 12/18/2019 1:57 PM ADMITTANCE ATTENDANT This order has been created and auto-finalized [...]
--- OUTSIDE RECORDS SUMMARY | 2022-08-14 17:55 | XMS_ITS | Encounter Summary ---
:1965 Author Organization [facility] Address [address] [place] [address] Care Team Providers Name Role Phone Unavailable Primary Care Provider Unavailable Encounter Details Date Type Department Care Team Description 08/05/2020 Clinical Communication Department of Honorio, Otorhinolaryngology in [place], [place] [address] [place], [place] [phone] [facility] [phone] [place] [phone] Social History Tobacco Use Types Packs/Day Years [...] you attend uatsdin or Patient refused 2021 tenriism services? Do [...] called patient to schedule COVID testing at [place] prior to appointment. Didn't answer so jessica [...] Appointment Radiology Alfredo Herrera O.P.A.-C. [address] [place] [address] 09/06/2022 Office Visit Orthopedic Surgery Cyrus Polk M.D. [address] [place] [phone] documented as of this encounter Visit Diagnoses Not on filedocumented in this encounter Additional Health Concerns Assessment Noted Time PHQ-9 Depression Total Score: 5 04/05/2019 8:00 AM CDT documented as of this encounter
--- OUTSIDE RECORDS SUMMARY | 2022-08-14 17:55 | XMS_ITS | Encounter Summary ---
:1965 Author Organization [facility] Address [address] [place] [address] Care Team Providers Name Role Phone Unavailable Primary Care Provider Unavailable Encounter Details Date Type Department Care Team Description 12/07/2019 Anesthesia Event RST ROMB LUISA OR Leonides Walker, [address] [facility] [place] [address] [address] [place] [address] [place] [address] (Wo rk) Anesthesia Record Procedure [...] h andoff to the receiving staff during [facility] we 1. Identified the patient [...] Simin valentine, Jey García, (created via procedure PRESS TECHNICIAN, CLUB DIRECTOR PRESS TECHNICIAN, TY A documentation); Mask Ventilation: Easy mask; [...] you attend episcopal or Patient refused 2021 presybeterian services? Do you belong to any clubs or No 05/17/2022 organizations such as episcopal groups, unions, [employer]ures or athletic groups, or school groups? How [...] Procedure Summary Date: 12/07/19 Room / Location: [place] [address] ROMB 01 580 / [facility] in [place], [place] Anesthesia Start: 1234 Anesthesia Stop: 1434 Procedures: SINUSOTOMY ENDOSCOPY FRONTAL. (Bilateral Nose) EXTRADURAL COMPUTER NAVIGATION. 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 Responsible Provider: Leonides Walker [...] Promethazine; otherwise, uneventful recovery with outpt dispo. P OPERATOR Anesthesia Procedure Notes - Gini Garcia [...] Procedure outcome: successful Airway event: no complications P OPERATOR Anesthesia Preprocedure Evaluation - Leonides Walker M.D. - 12/07/2019 11:59 AM CST Preprocedure Anesthesia & H&P Assessment Procedure Summary Date/Time: 12/07/19 1119 Procedures: SINUSOTOMY ENDOSCOPY FRONTAL. (Bilateral Nose) EXTRADURAL COMPUTER NAVIGATION. 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 Location: [place] [address] / [facility] in [place], [place] Provider: Darlin Olmedo M.D. Pertinent components [...] #11 Patent Foramen Ovale (HCC) Noted on [id number]/ ECHO otherwise normal. I will not pursue [...] with patient /legal guardian or through an site interpreter. The use of blood products not discussed Approval to Proceed: approved for anesthesia P OPERATOR documented in this encounter Plan of Treatment Upcoming Encounters Date Type Specialty Care Team Description 09/01/2022 Clinical Communication Admitting/Central Scheduling 09/06/2022 Appointment Radiology Alfredo Herrera O.P.A.-C. [address] [place] [phone] 09/06/2022 Office Visit Orthopedic Surgery Cyrus Polk M.D. [address] [place] [phone] documented as of this encounter Procedures Procedure Name Priority Date/Time Associated Comments Diagnosis LDA ANE ENDOTRACHEAL Routine 12/07/2019 12:47 Res ults for this AIRWAY PM SETUP OPERATOR procedure are i n the results section. documented in this encounter Results LDA ANE ENDOTRACHEAL AIRWAY (12/07/2019 12:47 PM SETUP OPERATOR) Narrative Gini Garcia APRN, CRNA - 2019 12:47 PM SETUP OPERATOR Gini Garcia APRN, CRNA ? 12/07/2019 [...] dexamethasone injection (DECADRON) Given 12/07/2019 12:43 PM SETUP OPERATOR 4 mg As needed, Starting on Tue12/07/19 at 1243, Anesthesia Intra-op ePHEDrine (PF) injection Given 12/07/2019 12:48 PM SETUP OPERATOR 5 mg intravenous, As needed, Starting on Tue12/07/19 at 1242, Anesthesia Intra-op Given 12/07/2019 12:42 PM SETUP OPERATOR 25 mg fentaNYL injection 25 mcg (SUBLIMAZE) Given 12/07/2019 2:32 PM SETUP OPERATOR 25 mcg 25 mcg, intravenous, Every 2 min PRN, For pain 4 or greater (maximum 100 mcg). If max dose of Fentanyl is reached and if pain is greater than 4, discontinue Fentanyl: give Hydromorphone, Starting on Tue12/07/19 at 1145, Pre-Op lactated ringers New Bag 12/07/2019 12:39 PM SETUP OPERATOR intravenous, Continuous Infusion: Per Instructions PRN, Starting on Tue12/07/19 at 1239, Anesthesia Intra-op lidocaine (PF) (cardiac) injection Given 12/07/2019 12:40 PM SETUP OPERATOR 100 mg intravenous, As needed, Starting on Tue12/07/19 at 1240, Anesthesia Intra-op ondansetron (PF) injection (ZOFRAN) Given 12/07/2019 1:57 PM SETUP OPERATOR 4 mg intravenous, As needed, Starting on Tue12/07/19 at 1357, Anesthesia Intra-op phenylephrine injection Given 12/07/2019 12:50 PM SETUP OPERATOR 100 mcg intravenous, As needed, Starting on Tue12/07/19 at 1246, Anesthesia Intra-op Given 12/07/2019 12:48 PM SETUP OPERATOR 100 mcg Given 12/07/2019 12:46 PM SETUP OPERATOR 100 mcg propofol 10 mg/mL infusion Rate/Dose 12/07/2019 75 mcg/kg/min 34.4 m L/hr (DIPRIVAN) Change 12:46 PM SETUP OPERATOR intravenous, Continuous Infusion: Per Instructions PRN, Starting on Tue12/07/19 at 1241, Anesthesia Intra-op New Bag 12/07/2019 12:41 PM SETUP OPERATOR 250 mcg/kg/min 115 mL/hr propofol injection (DIPRIVAN) Given 12/07/2019 12:42 PM SETUP OPERATOR 100 mg intravenous, As needed, Starting on Tue12/07/19 at 1242, Anesthesia Intra-op remifentanil 20 mcg/mL in Rate/Dose 12/07/2019 1:43 0.1 mcg/kg/min 2 2.9 mL/hr NaCl 0.9% 100 mL infusion Change PM SETUP OPERATOR (ULTIVA) Continuous Infusion: Per Instructions PRN, Starting on Tue12/07/19 at 1246, Anesthesia Intra-op Rate/Dose Change 12/07/2019 12:53 PM SETUP OPERATOR 0.2 mcg/kg/min 45.8 mL/hr New Bag 12/07/2019 12:46 PM SETUP OPERATOR 0.25 mcg/kg/min 57.3 mL/hr succinylcholine (PF) injection (ANECTINE ) Given 12/07/2019 12:42 PM SETUP OPERATOR 10 mg intravenous, As needed, Starting on Tue12/07/19 at 1242, Anesthesia Intra-op vancomycin in NaCl 0.9% IVPB 1,250 mg Given 12/07/2019 12:51 PM SETUP OPERATOR 1.25 g 1,250 mg (rounded from [...]
--- OUTSIDE RECORDS SUMMARY | 2022-08-14 17:55 | XMS_ITS | Encounter Summary ---
:1965 Author Organization [facility] Address [address] [place] [address] Care Team Providers Name Role Phone Unavailable Primary Care Provider Unavailable Reason for Visit Reason Comments Michel Encounter Details Date Type Department Care Team Description 09/04/2020 Clinical Communication Department of Robert Diehl W8B/Scharf Neurology in [place], [place] [address] [place] [address] 200 [place] [phone] Social History Tobacco Use Types Packs/Day Years [...] you attend taoist or Patient refused 2021 gnosticist services? Do [...] Clinical Communication Admitting/Central Scheduling 09/06/2022 Appointment Radiology Alfreod Herrera O.P.A.-C. [address] [place] [address] 09/06/2022 Office Visit Orthopedic Surgery Cyrus Polk M.D. [address] [place] [address] documented as of this encounter Visit Diagnoses Not on filedocumented in this encounter Additional Health Concerns Assessment Noted Time PHQ-9 Depression Total Score: 5 04/05/2019 8:00 AM CDT documented as of this encounter"
--- OUTSIDE RECORDS SUMMARY | 2022-08-14 17:55 | XMS_ITS | Encounter Summary ---
:1965 Author Organization [facility] Address [address] [place] [address] Care Team Providers Name Role Phone Unavailable Primary Care Provider Unavailable Reason for Referral Outpatient (Routine) - Closed Specialty Diagnoses / Procedures Referred By Contact Refer red To Contact Otorhinolaryngology Darlin Olmedo M.D . [address] [phone] Referral ID Status Reason Start Date Expiration Date Visits Requ ested Visits Authorized [id number] Closed 12/18/2019 12/17/2020 1 1 RING CHECKER Reason for Visit Outpatient (Routine) - Closed Specialty Diagnoses / Procedures Referred By Contact Refer red To Contact Otorhinolaryngology Darlin Olmedo M.D . [address] [phone] Referral ID Status Reason Start Date Expiration Date Visits Requ ested Visits Authorized [id number] Closed 11/29/2019 11/28/2020 1 1 Encounter Details Date Type Department Care Team Description 12/18/2019 Office Visit Department of Darlin Olmedo Mucocele Nasa l Sinus Otorhinolaryngology jimmy Brumfield M.D. (Primary Dx) [address] [place] [phone] Social History Tobacco Use Types Packs/Day Years [...] we will refer to neurology headache clinic. RING CHECKER documented in this encounter Plan of Treatment Upcoming Encounters Date Type Specialty Care Team Description 09/01/2022 Clinical Communication Admitting/Central Scheduling 09/06/2022 Appointment Radiology lAfredo Herrera O.P.A.-C. 200 [place] [address] 09/06/2022 Office Visit Orthopedic Surgery Cyrus Polk M.D. 200 [place] [address] Scheduled Referrals Name Type Priority Associated Order [...]
--- OUTSIDE RECORDS SUMMARY | 2022-08-14 17:55 | XMS_ITS | Encounter Summary ---
:1965 Author Organization [facility] Address [address] [place] [address] Care Team Providers Name Role Phone Unavailable Primary Care Provider Unavailable Encounter Details Date Type Department Care Team Description 08/06/2020 Clinical Communication Department of Honorio, Otorhinolaryngology in [place], [place] [address] [place] [address] [facility] [phone] [place] [phone] Social History Tobacco Use Types Packs/Day Years [...] you attend yazdanism or Patient refused 2021 restorationism services? Do [...] that she had them done at [facility]. I called the facility and requested [...] she had a CT Scan today in [place]. If her doctor there feels she needs [...] Radiology Alfredo Herrera O.P.A.-C. [address] [place] [address] 09/06/2022 Office Visit Orthopedic Surgery Cyrus Polk M.D. [address] [place] [address] documented as of this encounter Visit Diagnoses Not on filedocumented in this encounter Additional Health Concerns Assessment Noted Time PHQ-9 Depression Total Score: 5 04/05/2019 8:00 AM CDT documented as of this encounter
--- OUTSIDE RECORDS SUMMARY | 2022-08-14 17:55 | XMS_ITS | Encounter Summary ---
:1965 Author Organization [facility] Address [address] [place] [address] Care Team Providers Name Role Phone Unavailable Primary Care Provider Unavailable Reason for Referral MRI/CAT/PET Scan (Routine) - Closed Specialty Diagnoses / Procedures Referred By Contact Refer red To Contact Radiology Diagnoses Ataxia Robert Fowler M.D. [facility] Procedures CT Head Neck Angiogram with IV Contrast 200 [place] [address] Referral ID Status Reason Start Date Expiration Date Visits Requ ested Visits Authorized [id number] Closed 12/31/2020 12/31/2021 1 1 STITCHER Outpatient (Routine) - Closed Specialty Diagnoses / Procedures Referred By Contact Refer red To Contact Video Medicine Diagnoses Stroke Cerebrovascular Accident Personal History Robert Fowlre Roche [facility] Margot Quintana 200 [place] [address] Referral ID Status Reason Start Date Expiration Date Visits Requ ested Visits Authorized [id number] Closed 12/30/2020 12/30/2021 1 1 STITCHER MRI/CAT/PET Scan (Routine) - Closed Specialty Diagnoses / Procedures Referred By Contact Refer red To Contact Radiology Diagnoses Ataxia Robert Fowler M.D. [facility] Procedures CT Head Neck Angiogram with IV Contrast 200 [place] [address] Referral ID Status Reason Start Date Expiration Date Visits Requ ested Visits Authorized [id number] Closed 12/30/2020 12/30/2021 1 1 STITCHER MRI/CAT/PET Scan (Routine) - Closed Specialty Diagnoses / Procedures Referred By Contact Refer red To Contact Radiology Diagnoses Stroke Cerebrovascular Accident Personal History Robert Fowler M.D. [place] Procedures CT Head without IV Contrast [address] [place] [address] Referral ID Status Reason Start Date Expiration Date Visits Requ ested Visits Authorized [id number] Closed 12/30/2020 12/30/2021 1 1 STITCHER Reason for Visit Reason Comments Symptom Assessment Encounter Details Date Type Department Care Team Description 12/22/2020 Clinical Communication Department of Robert Fowler mptom Assessment Neurology jimmy Celaya M.D. [place] [address] [place], [place] [address] [facility] [address] [place], [place] [phone] (Work) [phone] Social History Tobacco Use Types Packs/Day Years [...] you attend yarsani or Patient refused 2021 zoroastrian services? Do [...] Robert Fowler M.D. - 12/31/2020 5:17 PM CUFF STITCHER Addended by: ROBERT FOWLER on: 12/31/2020 05:17 PM Modules accepted: Orders STITCHER Addendum Note - Robert Fowler M.D. - 12/30/2020 8:34 AM CUFF STITCHER Addended by: ROBERT FOWLER on: 12/30/2020 08:34 AM Modules accepted: Orders STITCHER Telephone Encounter - Zuly Alex R.N. - 12/29/2020 4:48 PM CST The patient telephones back today. She did present to the local ED in [place] for evaluation of her vertigo. She shares [...] needs to get in contact with her [facility] neurologist. The patient reports that [...] advice. TYPE OF PHONE CALL. Symptom assessment. STITCHER Telephone Encounter - Robert Fowler M.D. - [...] by: Robert Fowler M.D. 12/23/20 8:21 AM CUFF STITCHER STITCHER Telephone Encounter - Zuly Alex R.N. - 12/22/2020 5:25 PM CST 5:17 pm. Tried calling to assure she could reach her son to take her to the ED. No answer. STITCHER Telephone Encounter - Zuly Alex R.N. - [...] her to the nearest emergency room or [id number]. She expressed concerns about going to the [...] the nearest ED which would be in [place]. He did not answer. I offered to [...] advice. TYPE OF PHONE CALL. Symptom assessment. STITCHER Telephone Encounter - Robert Fowler M.D. - 12/22/2020 3:29 PM CST Please call patient in triage whether she needs to be seen in the local emergency department for concern of acute stroke? STITCHER documented in this encounter Plan of Treatment Upcoming Encounters Date Type Specialty Care Team Description 09/01/2022 Clinical Communication Admitting/Central Scheduling 09/06/2022 Appointment Radiology Alfredo Herrera O.P.A.-C. [address] [place] [address] 09/06/2022 Office Visit Orthopedic Surgery Cyrus Polk M.D. [address] [place] [phone] Scheduled Referrals Name Type Priority Associated Diagnoses Order S chedule Video anyplace Outpatient Referral Routine Stroke Cerebrovascu lar Expected: visit Accident Personal 12/30/2020 , History Expires: 12/30/2023 documented as of this encounter Results CT Head Neck Angiogram with IV Contrast (01/30/2021 3:24 PM CUFF STITCHER) Anatomical Region Laterality Modality Head and Neck, Neuroradiology RST LOS, N/A C omputed Tomography, Computed Neuroradiology ARZ LOS, Neuroradiology T omography FLA [facility] Specimen (Source) Anatomical Collection Method Collection Time Re ceived Time Location / / Volume Laterality 01/30/2021 2:25 PM CUFF STITCHER Impressions 01/30/2021 3:18 PM CUFF STITCHER 1. 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 Slightly decreased high-grade stenosis a t the V3/4 junction with increased flow in the distal V4 segment. 2. Evolving, now chronic right cerebella r infarct. 3. 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 Narrative 01/30/2021 3:18 PM CUFF STITCHER EXAM: CT HEAD NECK ANGIOGRAM WITH IV [...] normal caliber bilater al MCAs, ACAs and leather sprayer. Patent anterior and right posterior communicating arteri [...] normal caliber bilater al MCAs, ACAs and leather sprayer. Patent anterior and right posterior communicating arteri [...] left ICA supraclinoid and para clinoid aneurysms. Authorizing Provider Result Selma NIELSON CT PROCEDURES CT Head Neck Angiogram with IV Contrast (12/31/2020 3:34 PM CUFF STITCHER) Anatomical Region Laterality Modality Head and Neck, Neuroradiology RST LOS, N/A C omputed Tomography, Computed Neuroradiology ARZ LOS, Neuroradiology T omography FLA LOS Specimen (Source) Anatomical Collection Method Collection Time Re ceived Time Location / / Volume Laterality 12/31/2020 3:49 PM CUFF STITCHER Impressions 12/31/2020 4:54 PM CUFF STITCHER 1. Evolving right cerebellar infarct with decreased [...] oid ICA aneurysms. Narrative 12/31/2020 4:54 PM CUFF STITCHER EXAM: CT HEAD WITHOUT IV CONTRAST, CT [...] discussed with ordering physici Dr. Fazal abbasi ([id number]) at 4:54 PM on 12/31/2020. Procedure Note [...] Findings discussed with ordering physici anDr. Fowler ([id number]) at 4:54 PM on 12/31/2020. IMPRESSION: 1. [...] Head without IV Contrast (12/31/2020 3:34 PM CUFF STITCHER) Anatomical Region Laterality Modality Head, Neuroradiology RST LOS, N/A Computed T omography, Computed Neuroradiology ARZ LOS, Neuroradiology T omography FLA LOS Specimen (Source) Anatomical Collection Method Collection Time Re ceived Time Location / / Volume Laterality 12/31/2020 3:49 PM CUFF STITCHER Impressions 12/31/2020 4:54 PM CUFF STITCHER 1. Evolving right cerebellar infarct with decreased [...] oid ICA aneurysms. Narrative 12/31/2020 4:54 PM CUFF STITCHER EXAM: CT HEAD WITHOUT IV CONTRAST, CT [...] discussed with ordering physici Dr. Fazal abbasi ([id number]) at 4:54 PM on 12/31/2020. Procedure Note [...] Findings discussed with ordering Dr. Fazal ching ([id number]) at 4:54 PM on 12/31/2020. IMPRESSION: 1. [...]
--- OUTSIDE RECORDS SUMMARY | 2022-08-14 17:55 | XMS_ITS | Encounter Summary ---
:1965 Author Organization [facility] Address [address] [place] [address] Care Team Providers Name Role Phone Unavailable [...] Appointment Radiology Alfredo Herrera O.P.A.-C. [address] [place] [phone] 09/06/2022 Office Visit Orthopedic Surgery Cyrus Polk M.D. [address] [place] [phone] documented as of this encounter Procedures Procedure Name Priority Date/Time Associated Comments Diagnosis OTORHINOLARYNGOLOGY IMAGE Routine 12/07/2019 12:15 Results for this EXAM PM NEWSPAPER PHOTOJOURNALIST procedure are i n the results section. documented in this encounter Results NOSE-Otorhinolaryngology Image Exam (12/07/2019 12:15 PM NEWSPAPER PHOTOJOURNALIST) Specimen (Source) Anatomical Collection Method Collection Time Re ceived Time Location / / Volume Laterality 12/07/2019 12:15 PM NEWSPAPER PHOTOJOURNALIST Narrative IIMS - 12/07/2019 2:07 PM NEWSPAPER PHOTOJOURNALIST This order has been created and auto-finalized [...]
--- OUTSIDE RECORDS SUMMARY | 2022-08-14 17:55 | XMS_ITS | Encounter Summary ---
:1965 Author Organization [facility] Address [address] [place] [address] Care Team Providers Name Role Phone Unavailable Primary Care Provider Unavailable Reason for Visit Reason Onset Date Comments Medication Question 01/08/2020 Encounter Details Date Type Department Care Team Description 01/08/2020 Clinical Department of [place], Medication Communication Otorhinolaryngology in [place], [place] Lilian [address] [place] [address] [place] [phone] [place] [address] Social History Tobacco Use Types Packs/Day Years [...] you attend bahai or Patient refused 2021 advent services? Do [...] not covered. Patient will do regular Flonase IFIED GENETIC COUNSELOR Telephone Encounter - Donna Martines - 01/08/2020 4:21 PM CST [facility] called about the Fluticasone Propionate (Flonase) prescription that was put through today. The insurance will not cover it because at the end of the SIG it says Sensimist. Please call the pharmacy at [phone], or place another order. Thank you, Donna IFIED GENETIC COUNSELOR documented in this encounter Plan of Treatment Upcoming Encounters Date Type Specialty Care Team Description 09/01/2022 Clinical Communication Admitting/Central Scheduling 09/06/2022 Appointment Radiology Alfredo Herrera O.P.A.-C. [address] [place] [address] 09/06/2022 Office Visit Orthopedic Surgery Cyrus Polk M.D. [address] [place] [address] documented as of this encounter Visit Diagnoses Not on filedocumented in this encounter Additional Health Concerns Assessment Noted Time PHQ-9 Depression Total Score: 5 04/05/2019 8:00 AM CDT documented as of this encounter
--- OUTSIDE RECORDS SUMMARY | 2022-08-14 17:55 | XMS_ITS | Encounter Summary ---
:1965 Author Organization [facility] Address [address] [place] [address] Care Team Providers Name Role Phone Unavailable Primary Care Provider Unavailable Reason for Visit Reason Comments Follow-up [facility] Patient Encounter Details Date Type Department Care Team Description 12/29/2020 [facility] Neurology jimmy Celaya M.D. Patient) [place], [facility] [address] [place], [place] [address] [place] [address] [place], [place] [phone] (Work) [phone] Social History Tobacco Use Types Packs/Day Years [...] you attend evangelical or Patient refused 2021 evangelical services? Do [...] her know PCP needs to prescribe meclizine. MOTOR REPAIRER Telephone Encounter - Allyssa Amaya - 12/29/2020 [...] ambulance for; one of which lasted over upg-nfa-q-half days. She is having headaches, etc. 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 [address] [place] [phone] 09/06/2022 Office Visit Orthopedic Surgery Cyrus Polk M.D. [address] [place] [phone] documented as of this encounter Visit Diagnoses Not on filedocumented in this encounter Additional Health Concerns Assessment Noted Time PHQ-9 Depression Total Score: 5 04/05/2019 8:00 AM CDT documented as of this encounter
--- OUTSIDE RECORDS SUMMARY | 2022-08-14 17:55 | XMS_ITS | Encounter Summary ---
:1965 Author Organization [facility] Address [address] [place] [address] Care Team Providers Name Role Phone Unavailable Primary Care Provider Unavailable Reason for Visit Outpatient (Routine) - Closed Specialty Diagnoses / Procedures Referred By Contact Refer red To Contact Otorhinolaryngology Darlin Olmedo M.D . [facility] [address] [place] [phone] Referral ID Status Reason Start Date Expiration Date Visits Requ ested Visits Authorized [id number] Closed 12/18/2019 12/17/2020 1 1 Encounter Details Date Type Department Care Team Description 01/08/2020 Office Visit Department of Darlin Olmedo Mucocele Nasa l Sinus Otorhinolaryngology jimmy Brumfield M.D. (Primary Dx) [address] [place] [phone] Social History Tobacco Use Types [...] 05/17/2022 organizations such as christian groups, unions, [employer]issful [employer] or athletic groups, or school groups? How [...] She will continue saline irrigations and Flonase. OTTON PACKER Associated attestation - Darlin Olmedo M.D. - 01/16/2020 5:45 PM GUNCOTTON PACKER I saw and evaluated the patient, participating in the dodson portions of the service. I reviewed the resident/fellow???s note. I agree with the resident/fellow???s findings and plan. Mucocele cavities andfrontal recesses patent on both sides. documented in this encounter Plan of Treatment Upcoming Encounters Date Type Specialty Care Team Description 09/01/2022 Clinical Communication Admitting/Central Scheduling 09/06/2022 Appointment Radiology Alfredo Herrera O.P.A.-C. [address] [place] [address] 09/06/2022 Office Visit Orthopedic Surgery Cyrus Polk M.D. [address] [place] [address] documented as of this encounter Visit Diagnoses Diagnosis Mucocele Nasal Sinus - Primary documented in this encounter Additional Health Concerns Assessment Noted Time PHQ-9 Depression Total Score: 5 04/05/2019 8:00 AM CDT documented as of this encounter
--- OUTSIDE RECORDS SUMMARY | 2022-08-14 17:55 | XMS_ITS | Encounter Summary ---
:1965 Author Organization [facility] Address [address] [place] [address] Care Team Providers Name Role Phone Unavailable [...] you attend scientology or Patient refused 2021 judaism services? Do [...] Appointment Radiology Alfredo Herrera O.P.A.-C. [address] [place] [phone] 09/06/2022 Office Visit Orthopedic Surgery Cyrus Polk M.D. [address] [place] [phone] documented as of this encounter Procedures Procedure Name Priority Date/Time Associated Comments Diagnosis OTORHINOLARYNGOLOGY IMAGE Routine 01/08/2020 3:15 Results for this EXAM PM SHOCHET procedure are i n the results section. documented in this encounter Results NOSE-Otorhinolaryngology Image Exam (01/08/2020 3:15 PM SHOCHET) Specimen (Source) Anatomical Collection Method Collection Time Re ceived Time Location / / Volume Laterality 01/08/2020 3:11 PM SHOCHET Narrative [facility] - 01/08/2020 3:29 PM SHOCHET This order has been created and auto-finalized [...]
--- OUTSIDE RECORDS SUMMARY | 2022-08-14 17:55 | XMS_ITS | Encounter Summary ---
:1965 Author Organization [facility] Address [address] [place] [address] Care Team Providers Name Role Phone Unavailable Primary Care Provider Unavailable Reason for Visit Reason Comments shyam Encounter Details Date Type Department Care Team Description 07/29/2020 Clinical Communication Department of Robert Diehl w8b/scharf Neurology in [place], [place] [address] [place] [address] 200 [place] [phone] Social History Tobacco Use Types Packs/Day Years [...] you attend caodaism or Patient refused 2021 uatsdin services? Do [...] for magnetic resonance angiogram be sent to [place]. José Miguel advise what the exact testing [...] Appointment Radiology Alfredo Herrera O.P.A.-C. [address] [place] [address] 09/06/2022 Office Visit Orthopedic Surgery Cyrus Polk M.D. [address] [place] [address] documented as of this encounter Visit Diagnoses Diagnosis Stroke (HCC) - Primary Headache Unspecified Thrombosis Arterial (HCC) documented in this encounter Additional Health Concerns Assessment Noted Time PHQ-9 Depression Total Score: 5 04/05/2019 8:00 AM CDT documented as of this encounter
--- OUTSIDE RECORDS SUMMARY | 2022-08-14 17:55 | XMS_ITS | Encounter Summary ---
:1965 Author Organization [facility] Address [address] [place] [address] Care Team Providers Name Role Phone Unavailable Primary Care Provider Unavailable Encounter Details Date Type Department Care Team Description 09/15/2020 Ancillary Procedure Department of Robert Diehl Aneurysm Radiology jimmy Celaya M.D. Nonruptured (HCC) [place], [place] [address] [facility] [address] [place] [phone] Social History Tobacco Use Types Packs/Day Years [...] you attend adventism or Patient refused 2021 jehovah's witness services? [...] Appointment Radiology Alfredo Herrera O.P.A.-C. [address] [place] [phone] 09/06/2022 Office Visit Orthopedic Surgery Cyrus Polk M.D. [address] [place] [phone] documented as of this encounter Procedures Procedure [...] nt right vertebral artery. RADHA, MCA, and faculty head are patent. Neck MRA: Conventional three-vessel arch [...] nt right vertebral artery. RADHA, MCA, and faculty head are patent. Neck MRA: Conventional three-vessel arch [...]
--- OUTSIDE RECORDS SUMMARY | 2022-08-14 17:55 | XMS_ITS | Encounter Summary ---
:1965 Author Organization [facility] Address [address] [place] [address] Care Team Providers Name Role Phone Unavailable Primary Care Provider Unavailable Encounter Details Date Type Department Care Team Description 01/07/2020 Diagnostic Division of Pulmonary Akhil Diehl M.D. [facility] Medicine in [place], [facility] [address] [place], [place] 200 [facility] [address] [place] [address] [phone] Social History Tobacco Use Types Packs/Day Years [...] you attend methodist or Patient refused 2021 denominational services? Do [...] Appointment Radiology Alfredo Herrera O.P.A.-C. [address] [place] [phone] 09/06/2022 Office Visit Orthopedic Surgery Cyrus Polk M.D. [address] [place] [phone] documented as of this encounter Procedures Procedure Name Priority Date/Time Associated Diagnosis Comme nts PUL HOME OVERNIGHT Routine 01/08/2020 Fatigue Results f or this OXIMETRY procedure are i n the results section . documented in this encounter Results PUL Home Overnight Oximetry (01/08/2020) Specimen (Source) Anatomical Location Collection Method / Collectio n Time Received Time / Laterality Volume 01/08/2020 Narrative JOANNE GARCIA - 01/09/2020 2:20 PM CS T This result has an attachment that is no t available. See PDF report for results Procedure Note Darrius Pittman M.B.BBrittonS. - 01/09/2020Form atting of this note might be different from the original. See PDF report for results Robert Diehl M.D. PFT ORDERABLES Performing Organization Address City/State/ZIP Code Phon e Number RUBIO NVISION EAP documented in this encounter Visit Diagnoses Diagnosis Fatigue documented in this encounter Additional Health Concerns Assessment Noted Time PHQ-9 Depression Total Score: 5 04/05/2019 8:00 AM CDT documented as of this encounter
--- OUTSIDE RECORDS SUMMARY | 2022-08-14 17:55 | XMS_ITS | Encounter Summary ---
:[address] [facility] Address [address] [place] [address] Care Team Providers Name Role Phone Unavailable Primary Care Provider Unavailable Encounter Details Date Type Department Care Team Description 12/31/2020 Orders Only Department of Robert Diehl Stroke Cereb rovascular Accident Personal History (Primary Dx); Neurology in [place], MBrittonD. Thrombosis Arterial (HCC) [place], [place] 200 [facility] 200 [place] [phone] [phone] Social History Tobacco Use Types Packs/Day Years [...] you attend gnosticist or Patient refused 2021 yarsanism services? Do [...] Appointment Radiology Alfredo Herrera O.P.A.-C. [address] [place] [address] 09/06/2022 Office Visit Orthopedic Surgery Cyrus Polk M.D. [address] [place] [address] documented as of this encounter Visit Diagnoses Diagnosis Stroke Cerebrovascular Accident Personal History - Primary Thrombosis Arterial (HCC) documented in this encounter Additional Health Concerns Assessment Noted Time PHQ-9 Depression Total Score: 5 04/05/2019 8:00 AM CDT documented as of this encounter
--- OUTSIDE RECORDS SUMMARY | 2022-08-14 17:55 | XMS_ITS | Encounter Summary ---
:1965 Author Organization [facility] Address [address] [place] [address] Care Team Providers Name Role Phone Unavailable Primary Care Provider Unavailable Encounter Details Date Type Department Care Team Description 01/05/2021 Anticoagulation Visit Department of Neurology Elvira Villalta in [facility] rotary furnace tender RBrittonNBritton [address] [facility] [address] [place] [phone] Social History Tobacco Use Types Packs/Day Years [...] you attend shinto or Patient refused 2021 zoroastrian services? Do [...] an INR at her outside clinic in [place], [place] today and I called the lab [phone] and was told she did not report [...] advised for today, she report to the [place] lab as scheduled. Ms. Mosquera states she will do that. RECOMMENDED LEVEL OF CARE. The patient/caller is willing and able to follow the nurse's recommendation. RESPONSE TO ADVICE GIVEN. Patient/caller able to teach back. REFERENCES UTILIZED. Nursing clinical judgment utilized. Other interventions or information: Provider advice. TYPE OF PHONE CALL. INR management LY SPECIALIST Elvira Villalta R.N. - 01/05/2021 4:06 PM CST Patient's INR today is 1.47. Discussed with Dr. Neri Acevedo ([phone]) who advises that the patient take 7.5 [...] OF PHONE CALL. Test results, symptom assessment. LY SPECIALIST documented in this encounter Plan of Treatment Upcoming Encounters Date Type Specialty Care Team Description 09/01/2022 Clinical Communication Admitting/Central Scheduling 09/06/2022 Appointment Radiology Alfredo Herrera O.P.A.-C. [address] [place] [address] 09/06/2022 Office Visit Orthopedic Surgery Cyrus Polk M.D. [address] [place] [address] documented as of this encounter Procedures Procedure Name Priority Date/Time Associated Comments Diagnosis PROTHROMBIN TIME Routine 01/05/2021 3:15 PM Resul ts for this (PT), P SUPPLY SPECIALIST procedure are i n the results section. documented in this encounter Results Prothrombin Time (PT) (01/05/2021 3:15 PM SUPPLY SPECIALIST) P athologist Signature EXT INR 1.47 OTHER (SPECIFY IN STOCK REPLENISHER) Specimen (Source) Anatomical Collection Method Collection Time Re ceived Time Location / / Volume Laterality Blood (Blood, 01/05/2021 3:15 PM Venous) SUPPLY SPECIALIST Narrative This result has an attachment that is no t available. Resulting Agency Comment [facility] Historical Provider LAB BLOOD ADD-ON Performing Organization Address City/State/ZIP Code Phon e Number OTHER (SPECIFY IN STOCK REPLENISHER) OTHER (SPECIFY IN STOCK REPLENISHER) N/A documented in this encounter Visit Diagnoses Not on filedocumented in this encounter Additional Health Concerns Assessment Noted Time PHQ-9 Depression Total Score: 5 04/05/2019 8:00 AM CDT documented as of this encounter
--- OUTSIDE RECORDS SUMMARY | 2022-08-14 17:55 | XMS_ITS | Encounter Summary ---
:1965 Author Organization [facility] Address [address] [place] [address] Care Team Providers Name Role Phone Unavailable Primary Care Provider Unavailable Encounter Details Date Type Department Care Team Description 12/07/2019 Surgery RST ROMB LUISA OR Darlin Olmedo, SINUSOTOMY ENDOSCOPY [address] [facility] [place] [address] [address] [place] [address] [place] [phone] Social History Tobacco Use Types Packs/Day Years [...] you attend cheondoism or Patient refused 2021 lutheran services? Do [...] sinus rinse kit (jose ramon Dalal or [place]). - Follow the directions on the bottle [...] our clinic or with another department at [facility], an appointment willbe made for you. If you have not received specific details (date, time, location) within 2 weeks of discharge, please contact our office at [phone] to inquire. If you are to follow up somewhere other than [facility], please schedule this appointment (in the timeframe recommended by your surgeon)at your earliest convenience. CONTACT INFORMATION: If you need to reach the Department of ENT at the [facility] regarding any questions during normal business hours, please call . If you are calling after normal business hours and have a concern that needs to be addressed urgently, please call the [facility] Contact Center Professional at and ask to speak to the ENT resident product safety consultant. RITY SYSTEMS ENGINEER AttachmentsThe following attachments cannot be sent through Care Everywhere.Your Scopolamine Patch (Malagasy)documented in this encounter Medications at Time of [...] Extradural computer navigation was registered according to ditch inspector's guidelines and confirmed to be accurate within [...] 5 mL Implants None Darlin Olmedo M.D. RITY SYSTEMS ENGINEER Brief Op Note - Jey Santana M.D. [...] Loss None Implants None Jey Santana M.D. RITY SYSTEMS ENGINEER documented in this encounter Plan of Treatment Upcoming Encounters Date Type Specialty Care Team Description 09/01/2022 Clinical Communication Admitting/Central Scheduling 09/06/2022 Appointment Radiology Alfredo Herrera O.P.A.-C. [address] [place] [address] 09/06/2022 Office Visit Orthopedic Surgery Cyrus Polk M.D. 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 Case Notes SALES PROPERTY MANAGER 10:37 documented in this encounter Visit Diagnoses Diagnosis Rhinosinusitis Chronic Mucocele Nasal Sinus documented in this encounter Administered Medications Inactive Administered Medications - up to 3 most recent administrations Medication Order MAR Action Action Date Dose Rate Site acetaminophen injection 1,000 New Bag 12/07/2019 2:38 PM 1,000 mg 400 mL/hr mg (OFIRMEV) SECURITY SYSTEMS ENGINEER 1,000 mg, intravenous, at 400 mL/hr, Administer [...] 1,000 mg (TYLENOL) Given 12/07/2019 12:06 PM SECURITY SYSTEMS ENGINEER 1,000 mg 1,000 mg, oral, Once, On Tue12/07/19 at 1200, For 1 dose, Pre-Op aprepitant capsule 40 mg (EMEND) Given 12/07/2019 12:06 PM SECURITY SYSTEMS ENGINEER 40 mg 40 mg, oral, Once as needed, prevent ponv, Starting on Tue12/07/19 at 1145, For 1 dose, Pre-Op caffeine tablet 200 mg Given 12/07/2019 12:06 PM SECURITY SYSTEMS ENGINEER 200 mg 200 mg, oral, Once as needed, pre-op to prevent caffeine withdrawal headache or to enhance emergence from anesthesia/sedation, Starting on Tue12/07/19 at 1145, For 1 dose, Pre-Op, With sips cocaine 4 % external solution Given 12/07/2019 1:10 PM SECURITY SYSTEMS ENGINEER 4 mL Other As needed, Starting on Tue12/07/19 at 1310, Intra-Op droperidol injection 0.625 mg (INAPSINE) Given 12/07/2019 2:37 PM SECURITY SYSTEMS ENGINEER 0.625 mg 0.625 mg, intravenous, Every 6 [...] 25 mcg (SUBLIMAZE) Given 12/07/2019 2:32 PM SECURITY SYSTEMS ENGINEER 25 mcg 25 mcg, intravenous, Every 2 min PRN, For pain 4 or greater (maximum 100 mcg). If max dose of Fentanyl is reached and if pain is greater than 4, discontinue Fentanyl: give Hydromorphone, Starting on Tue12/07/19 at 1145, Pre-Op ketamine injection 10 mg (KETALAR) Given 12/07/2019 2:37 PM SECURITY SYSTEMS ENGINEER 10 mg 10 mg, intravenous, Once as needed, Pain sedation mismatch AND RASS score less than -1, Starting on Tue12/07/19 at 1430, For 1 dose, PACU (only) lactated ringers New Bag 12/07/2019 3:48 PM SECURITY SYSTEMS ENGINEER 20 mL/hr 20 mL/hr 20 mL/hr, intravenous, Continuous, Starting on Tue12/07/19 at 1400, PACU & Post-Op Continued from OR 12/07/2019 2:25 PM SECURITY SYSTEMS ENGINEER 20 mL/hr 20 mL/hr lidocaine-EPINEPHrine 1 %-1:100,000 Given 12/07/2019 1:45 PM SECURITY SYSTEMS ENGINEER 2 mL Other injection (XYLOCAINE W/EPI) As needed, Starting on Tue12/07/19 at 1320, Intra-Op Given 12/07/2019 1:20 PM SECURITY SYSTEMS ENGINEER 1.5 mL Other metoprolol tablet 12.5 mg [...] 2 mg (VERSED) Given 12/07/2019 12:28 PM SECURITY SYSTEMS ENGINEER 2 mg 2 mg, intravenous, Once as needed, anxiety, sedation, Starting on Tue12/07/19 at 1145, For 1 dose, Pre-Op ondansetron ODT disintegrating tablet 4 mg Given 12/07/2019 12:0 7 PM SECURITY SYSTEMS ENGINEER 4 mg (ZOFRAN-ODT) 4 mg, sublingual, Once, On Tue12/07/19 at 1200, For 1 dose, Pre-Op, When splitting ODT at bedside, handle with gloves and a pill splitter to prevent moisture contact. oxymetazoline 0.05 % nasal spray Given 12/07/2019 1:42 PM SECURITY SYSTEMS ENGINEER 1 application (AFRIN) As needed, Starting on Tue12/07/19 at 1342, Intra-Op scopolamine base 1 mg Medication Applied 12/07/2019 12:11 PM 1 patch Behind Right over 3 days 1 patch SECURITY SYSTEMS ENGINEER Ear (TRANSDERM SCOP) 1 patch, transdermal, Administer [...] Recently Administered Medications Times are shown in SECURITY SYSTEMS ENGINEER. Scheduled Medication Order 12/05/2019 12/06/2019 12/07/2019 acetaminophen [...] (COMPLETED) 1251 (Given - Provider: Gini Garcia, FIELD CROP FARMING SUPERVISOR, [employer]) 1,250 mg (rounded from 1,146 mg = [...] 1438 (New Bag - Provider: Jerica Uribe RBrittonNBritton) 1,000 mg, intravenous, at 400 mL/hr, Adm [...] (COMPLETED) 1206 (Given - Provider: Steph Gallo R.NBritton) 200 mg, oral, Once as needed, pre-op [...] (INAPSINE) 1437 (Given - Provider: Jerica Uribe R.NBritton) 0.625 mg, intravenous, Every 6 hours PRN [...] (SUBLIMAZE) 1432 (Given - Provider: Jey Hancock RBrittonNBritton) 25 mcg, intravenous, Every 2 min [...]
--- OUTSIDE RECORDS SUMMARY | 2022-08-14 17:56 | XMS_ITS | Encounter Summary ---
:1965 Author Organization [facility] Address [address] [place] [address] Care Team Providers Name Role Phone Unavailable Primary Care Provider Unavailable Encounter Details Date Type Department Care Team Description 10/09/2019 Orders Only Department of Otorhinolaryngology Alana Engel, in [facility] L.P.N. [address] [place] [address] 200 [place] [address] [place], [place] [phone] Social History Tobacco Use Types Packs/Day Years [...] you attend scientology or Patient refused 2021 pentecostalism services? Do [...] Appointment Radiology Alfredo Herrera O.P.A.-C. [address] [place] [address] 09/06/2022 Office Visit Orthopedic Surgery Cyrus Polk M.D. [address] [place] [address] documented as of this encounter Visit Diagnoses Not on filedocumented in this encounter Additional Health Concerns Assessment Noted Time PHQ-9 Depression Total Score: 5 04/05/2019 8:00 AM CDT documented as of this encounter
--- OUTSIDE RECORDS SUMMARY | 2022-08-14 17:56 | XMS_ITS | Encounter Summary ---
:1965 Author Organization [facility] Address [address] [place] [address] Care Team Providers Name Role Phone Unavailable Primary Care Provider Unavailable Encounter Details Date Type Department Care Team Description 06/28/2019 Hospital Encounter Department of Fernie Soriano Stroke ([facility]); Radiology, Jordy Alvarado M.D. Thrombosis Arterial ([facility]); Building, in [address] [place] [address] Aneurysm Cerebral Unruptured ([facility]) [place], [place] [address] [place] [address] [place], [place] [phone] (Work) [phone] Social History Tobacco Use Types Packs/Day Years [...] you attend worship or Patient refused 2021 episcopal services? Do [...] Appointment Radiology Alfredo Herrera O.P.A.-C. [address] [place] [phone] 09/06/2022 Office Visit Orthopedic Surgery Cyrus Polk M.D. [address] [place] [address] documented as of this encounter Procedures Procedure [...] the ventral aspect (series 6 image s [id number]). The lumen remains significantly irregular and there [...] well seen. The RADHA, MCA, a nd PRINCIPAL ARCHITECT branches are unremarkable in appearance. Stable postoperative [...] the ventral aspect (series 6 image s [id number]). The lumen remains significantly irregular and there [...] well seen. The RADHA, MCA, a nd PRINCIPAL ARCHITECT branches are unremarkable in appearance. Stable postoperative [...] left ingram praclinoid ICA. Fernie Soriano M.D. IMGeronimo CT PROCEDURES documented in this [...]
--- OUTSIDE RECORDS SUMMARY | 2022-08-14 17:56 | XMS_ITS | Encounter Summary ---
:1965 Author Organization [facility] Address [address] [place] [address] Care Team Providers Name Role Phone Unavailable Primary Care Provider Unavailable Reason for Visit Reason Onset Date Comments Schedule Surgery 10/05/2019 Encounter Details Date Type Department Care Team Description 10/05/2019 Clinical Department of [place], Schedule Surge ry Communication Otorhinolaryngology in [place], [place] 200 [facility] [address] [place] [phone] [place] [address] Social History Tobacco Use Types Packs/Day Years [...] you attend samaritan or Patient refused 2021 roman catholic services? [...] Kaykay Murphy R.N. - 10/17/2019 8:10 AM LOG MARKER Pt has return appt with EKO on 10/23 MARKER Telephone Encounter - Alana Engel L.P.NBritton - 10/09/2019 2:49 PM CST Note sent to DR. Olmedo and patient's Neurology team to discuss clearance for surgery. Desk is scheduling a return for the patient ot discuss surgery. MARKER Telephone Encounter - Alana Engel L.P.N. - [...] to reassess. We can hold a date (Decemeber ) in thefuture, but it may need to change based on recommendations from Neurology due to continued aspirin use or Dr. Olmedo's recommendations. We will call her back after we have found a time for her to comeback to discuss surgical options. Information: patient/caller able to repeat back in their own words The following references were used: provider Dr. Olmedo MARKER Telephone Encounter - Zoey Lipscomb - 10/05/2019 [...] surgical date. She can be reached at [phone]. MARKER documented in this encounter Plan of Treatment Upcoming Encounters Date Type Specialty Care Team Description 09/01/2022 Clinical Communication Admitting/Central Scheduling 09/06/2022 Appointment Radiology Alfredo Herrera O.P.A.-C. [address] [place] [address] 09/06/2022 Office Visit Orthopedic Surgery Cyrus Polk M.D. [address] [place] [address] documented as of this encounter Visit Diagnoses Not on filedocumented in this encounter Additional Health Concerns Assessment Noted Time PHQ-9 Depression Total Score: 5 04/05/2019 8:00 AM CDT documented as of this encounter
--- OUTSIDE RECORDS SUMMARY | 2022-08-14 17:56 | XMS_ITS | Encounter Summary ---
:1965 Author Organization [facility] Address [address] [place] [address] Care Team Providers Name Role Phone Unavailable Primary Care Provider Unavailable Reason for Visit Outpatient (Routine) - Closed Specialty Diagnoses / Procedures Referred By Contact Refer red To Contact Otorhinolaryngology Jey Santana M.D. [facility] [address] [place] [phone] Referral ID Status Reason Start Date Expiration Date Visits Requ ested Visits Authorized [id number] Closed 11/08/2019 11/07/2020 1 1 Encounter Details Date Type Department Care Team Description 11/29/2019 Office Visit Department of Darlin Olmedo Mucocele Nasa l Sinus Otorhinolaryngology jimmy Brumfield M.D. (Primary Dx) [address] [place] [address] [phone] Social History Tobacco Use Types Packs/Day Years [...] you attend mosque or Patient refused 2021 anabaptism services? Do you belong to any clubs or No 05/17/2022 organizations such as mosque groups, unions, fraAudioBoo or athletic groups, or school groups? How [...] Previous sinus surgery: sinus surgery X2 in [place] and X2 at [place] per patient; mucocele notedby left eye on [...] Crusting Mild = 1 Mild = 1 Itmann-Nate Endoscopy Score = 2 ASSESSMENT / PLAN [...] if this occurs we will identify another rehabilitation consultant surgeon to supervise other team members to safely and seamlessly complete the procedure. Signed consent was obtained today. Patient was seen and examined today in conjunction with Dr. Darlin Olmedo ([phone]). ERMAKER Associated attestation - Darlin Olmedo M.D. - 11/30/2019 10:43 AM BOILERMAKER I was the supervising physician in the delivery of the service. I saw the patient with Krista Casey APRN, BENCH PATTERNMAKER METAL, MSN and agree with her history, Assessment [...] Appointment Radiology Alfredo Herrera O.P.A.-C. [address] [place] [address] 09/06/2022 Office Visit Orthopedic Surgery Cyrus Polk M.D. [address] [place] [address] documented as of this encounter Visit Diagnoses Diagnosis Mucocele Nasal Sinus - Primary documented in this encounter Additional Health Concerns Assessment Noted Time PHQ-9 Depression Total Score: 5 04/05/2019 8:00 AM CDT documented as of this encounter
--- OUTSIDE RECORDS SUMMARY | 2022-08-14 17:56 | XMS_ITS | Encounter Summary ---
:1965 Author Organization [facility] Address [address] [place] [address] Care Team Providers Name Role Phone Unavailable Primary Care Provider Unavailable Reason for Visit Reason Onset Date Comments Nicotine Dependence 08/30/2019 Encounter Details Date Type Department Care Team Description 08/30/2019 Clinical Department of Tesfaye Ortega, Nicotine Janet grady Communication Nicotine Kenna D, Dependence, Jordy Alex, [facility] in [place], [place] [address] [place] [address] Social History Tobacco Use Types Packs/Day Years [...] you attend scientology or Patient refused 2021 alevism services? Do [...] Appointment Radiology Alfredo Herrera O.P.A.-C. [address] [place] [address] 09/06/2022 Office Visit Orthopedic Surgery Cyrus Polk M.D. [address] [place] [address] documented as of this encounter Visit Diagnoses Not on filedocumented in this encounter Additional Health Concerns Assessment Noted Time PHQ-9 Depression Total Score: 5 04/05/2019 8:00 AM CDT documented as of this encounter
--- OUTSIDE RECORDS SUMMARY | 2022-08-14 17:56 | XMS_ITS | Encounter Summary ---
:1965 Author Organization [facility] Address [address] [place] [address] Care Team Providers Name Role Phone Unavailable Primary Care Provider Unavailable Reason for Visit Reason Onset Date Comments Nicotine Dependence 09/04/2019 Encounter Details Date Type Department Care Team Description 09/04/2019 Clinical Department of Tesfaye Ortega, Nicotine Jante grady Communication Nicotine Kenna D, Dependence, Jordy Alex, [facility], in [place], [place] [address] [place] [address] Social History Tobacco Use Types Packs/Day Years [...] you attend evangelical or Patient refused 2021 catholic services? Do [...] Appointment Radiology Alfredo Herrera O.P.A.-C. [address] [place] [address] 09/06/2022 Office Visit Orthopedic Surgery Cyrus Polk M.D. [address] [place] [address] documented as of this encounter Visit Diagnoses Not on filedocumented in this encounter Additional Health Concerns Assessment Noted Time PHQ-9 Depression Total Score: 5 04/05/2019 8:00 AM CDT documented as of this encounter
--- OUTSIDE RECORDS SUMMARY | 2022-08-14 17:56 | XMS_ITS | Encounter Summary ---
:1965 Author Organization [facility] Address [address] [place] [address] Care Team Providers Name Role Phone Unavailable Primary Care Provider Unavailable Reason for Visit Outpatient (Routine) - Closed Specialty Diagnoses / Procedures Referred By Contact Refer red To Contact Neurology Robert Diehl M. D. [facility] [address] [place] [phone] Referral ID Status Reason Start Date Expiration Date Visits Requ ested Visits Authorized [id number] Closed 06/28/2019 06/27/2020 1 1 Encounter Details Date Type Department Care Team Description 10/02/2019 Office Visit Department of Robert Diehl, Stroke (H CC) (Primary Dx); Neurology in M.D. Thrombosis Arterial (HCC) [place], [place] [address] [place] [address] [place] [phone] Social History Tobacco Use Types Packs/Day Years [...] 05/17/2022 organizations such as anglican groups, unions, fraemids or athletic groups, or school groups? How [...] of a magnetic resonance angiogram completed at [facility]. Unfortunately we do not have the [...] 1. Stroke (HCC) 2. Thrombosis Arterial (HCC) ING SAW OPERATOR documented in this encounter Plan of Treatment Upcoming Encounters Date Type Specialty Care Team Description 09/01/2022 Clinical Communication Admitting/Central Scheduling 09/06/2022 Appointment Radiology Alfredo Herrera O.P.A.-C. [address] [place] [address] 09/06/2022 Office Visit Orthopedic Surgery Cyrus Polk M.D. [address] [place] [address] documented as of this encounter Visit Diagnoses Diagnosis Stroke (HCC) - Primary Thrombosis Arterial (HCC) documented in this encounter Additional Health Concerns Assessment Noted Time PHQ-9 Depression Total Score: 5 04/05/2019 8:00 AM CDT documented as of this encounter
--- OUTSIDE RECORDS SUMMARY | 2022-08-14 17:56 | XMS_ITS | Encounter Summary ---
:1965 Author Organization [facility] Address [address] [place] [address] Care Team Providers Name Role Phone Unavailable Primary Care Provider Unavailable Encounter Details Date Type Department Care Team Description 10/02/2019 Ancillary Procedure Department of Robert Diehl Arterial Radiology jimmy Celaya M.D. ([facility]) [place], [place] [address] [place] [address] [address] [place] [phone] Social History Tobacco Use Types Packs/Day Years [...] you attend baptist or Patient refused 2021 jew services? Do [...] Robert Diehl M.D. - 10/02/2019 3:20 PM SHEET FINISHER ENTERPRISE SYSTEMS ENGINEER: Would you please give the patient a [...] artery finding and the left paraclinoid aneurysm. T FINISHER documented in this encounter Plan of Treatment Upcoming Encounters Date Type Specialty Care Team Description 09/01/2022 Clinical Communication Admitting/Central Scheduling 09/06/2022 Appointment Radiology Alfredo Herrera O.P.A.-C. [address] [place] [phone] 09/06/2022 Office Visit Orthopedic Surgery Cyrus Polk M.D. [address] [place] [phone] (work) documented as of this encounter Procedures Procedure Name Priority Date/Time Associated Comments Diagnosis INTERPRETATION OF RAD - Routine 10/02/2019 1:01 Thrombosis Result s for OUTSIDE MR NECK (most inpatients PM SHEET FINISHER Arterial (HCC) this p rocedure and all are in the outpatients) results section. documented in this encounter Results Interpretation of Outside MR Neck (10/02/2019 1:01 PM SHEET FINISHER) Anatomical Region Laterality Modality Neuroradiology RST LOS, Neuroradiology ARZ LOS, N/A Magnetic Resonance Neuroradiology FLA LOS, Neck Specimen (Source) Anatomical Collection Method Collection Time Re ceived Time Location / / Volume Laterality 10/02/2019 1:03 PM SHEET FINISHER Impressions 10/02/2019 1:18 PM SHEET FINISHER Similar appearance of the distal right vertebral artery irregularity and mild narrowing at C1, r elated to the nonocclusive luminal thrombus, as seen on the prior CTA exams . MRA neck otherwise negative and unchanged. Narrative 10/02/2019 1:18 PM SHEET FINISHER EXAM: ??INTERPRETATION OF OUTSIDE MR NECK COMPARISON: [...]
--- OUTSIDE RECORDS SUMMARY | 2022-08-14 17:56 | XMS_ITS | Encounter Summary ---
:1965 Author Organization [facility] Address [address] [place] [address] Care Team Providers Name Role Phone Unavailable Primary Care Provider Unavailable Encounter Details Date Type Department Care Team Description 12/07/2019 Hospital Encounter RST ROMB MAIN OR Darlin Olmedo, [address] [facility] [facility] [place] [address] [address] [place] [address] [place] [phone] Social History Tobacco Use Types [...] you attend amish or Patient refused 2021 quaker services? Do [...] Comments Blood Pressure 114/72 12/07/2019 3:30 PM WAREHOUSE DELIVERY DRIVER Pulse 75 12/07/2019 4:25 PM WAREHOUSE DELIVERY DRIVER Temperature 36.5 ??C (97.7 ??F) 12/07/2019 2:32 PM WAREHOUSE DELIVERY DRIVER Respiratory Rate 15 12/07/2019 4:25 PM WAREHOUSE DELIVERY DRIVER Oxygen Saturation 94% 12/07/2019 4:25 PM WAREHOUSE DELIVERY DRIVER Inhaled Oxygen Concentration - - Weight - [...] saline sinus rinse kit (suchas NeIron or [place]). - Follow the directions on the bottle [...] our clinic or with another department at [facility], an appointment willbe made for you. If you have not received specific details (date, time, location) within 2 weeks of discharge, please contact our office at [phone] to inquire. If you are to follow up somewhere other than [facility], please schedule this appointment (in the timeframe recommended by your surgeon)at your earliest convenience. CONTACT INFORMATION: If you need to reach the Department of ENT at the [facility] regarding any questions during normal business hours, please call . If you are calling after normal business hours and have a concern that needs to be addressed urgently, please call the [facility] Moving Picture Producer at and ask to speak to the ENT resident municipal bond trader. HOUSE DELIVERY DRIVER AttachmentsThe following attachments cannot be sent through [...] Extradural computer navigation was registered according to improvement spec's guidelines and confirmed to be accurate within [...] 5 mL Implants None Darlin Olmedo M.D. HOUSE DELIVERY DRIVER Brief Op Note - Jey Santana M.D. [...] Loss None Implants None Jey Santana M.D. HOUSE DELIVERY DRIVER documented in this encounter Plan of Treatment Upcoming Encounters Date Type Specialty Care Team Description 09/01/2022 Clinical Communication Admitting/Central Scheduling 09/06/2022 Appointment Radiology Alfredo Herrera O.P.A.-C. [address] [place] [address] 09/06/2022 Office Visit Orthopedic Surgery Cyrus Polk M.D. [address] [place] [phone] documented as of this encounter Procedures Procedure Name Priority Date/Time Associated Diagnosis Comme nts ADULT OXYGEN THERAPY Routine 12/07/2019 2:30 PM WAREHOUSE DELIVERY DRIVER EXTRADURAL COMPUTER 12/07/2019 12:13 PM Rhinosin usitis Chronic NAVIGATION WAREHOUSE DELIVERY DRIVER Mucocele Nasal Sinus Case Notes COMMUTER TRAIN OPERATOR 10:37 SINUSOTOMY ENDOSCOPY 12/07/2019 12:13 PM WAREHOUSE DELIVERY DRIVER Rhi nosinusitis Chronic FRONTAL Mucocele Nasal Sinus Case Notes COMMUTER TRAIN OPERATOR 10:37 documented in this encounter Visit Diagnoses Not on filedocumented in this encounter Administered Medications Inactive Administered Medications - up to 3 most recent administrations Medication Order MAR Action Action Date Dose Rate Site acetaminophen injection 1,000 New Bag 12/07/2019 2:38 PM 1,000 mg 400 mL/hr mg (OFIRMEV) WAREHOUSE DELIVERY DRIVER 1,000 mg, intravenous, at 400 mL/hr, Administer [...] 1,000 mg (TYLENOL) Given 12/07/2019 12:06 PM WAREHOUSE DELIVERY DRIVER 1,000 mg 1,000 mg, oral, Once, On Tue12/07/19 at 1200, For 1 dose, Pre-Op aprepitant capsule 40 mg (EMEND) Given 12/07/2019 12:06 PM WAREHOUSE DELIVERY DRIVER 40 mg 40 mg, oral, Once as needed, prevent ponv, Starting on Tue12/07/19 at 1145, For 1 dose, Pre-Op caffeine tablet 200 mg Given 12/07/2019 12:06 PM WAREHOUSE DELIVERY DRIVER 200 mg 200 mg, oral, Once as needed, pre-op to prevent caffeine withdrawal headache or to enhance emergence from anesthesia/sedation, Starting on Tue12/07/19 at 1145, For 1 dose, Pre-Op, With sips droperidol injection 0.625 mg (INAPSINE) Given 12/07/2019 2:37 PM WAREHOUSE DELIVERY DRIVER 0.625 mg 0.625 mg, intravenous, Every 6 [...] mcg (SUBLIMAZE) Given 12/07/2019 2:32 PM WAREHOUSE DELIVERY DRIVER 25 mcg 25 mcg, intravenous, Every 2 min PRN, For pain 4 or greater (maximum 100 mcg). If max dose of Fentanyl is reached and if pain is greater than 4, discontinue Fentanyl: give Hydromorphone, Starting on Tue12/07/19 at 1145, Pre-Op ketamine injection 10 mg (KETALAR) Given 12/07/2019 2:37 PM WAREHOUSE DELIVERY DRIVER 10 mg 10 mg, intravenous, Once as needed, Pain sedation mismatch AND RASS score less than -1, Starting on Tue12/07/19 at 1430, For 1 dose, PACU (only) lactated ringers New Bag 12/07/2019 3:48 PM WAREHOUSE DELIVERY DRIVER 20 mL/hr 20 mL/hr 20 mL/hr, intravenous, Continuous, Starting on Tue12/07/19 at 1400, PACU & Post-Op Continued from OR 12/07/2019 2:25 PM WAREHOUSE DELIVERY DRIVER 20 mL/hr 20 mL/hr metoprolol tablet 12.5 [...] 2 mg (VERSED) Given 12/07/2019 12:28 PM WAREHOUSE DELIVERY DRIVER 2 mg 2 mg, intravenous, Once as needed, anxiety, sedation, Starting on Tue12/07/19 at 1145, For 1 dose, Pre-Op ondansetron ODT disintegrating tablet 4 mg Given 12/07/2019 12:0 7 PM WAREHOUSE DELIVERY DRIVER 4 mg (ZOFRAN-ODT) 4 mg, sublingual, Once, On Tue12/07/19 at 1200, For 1 dose, Pre-Op, When splitting ODT at bedside, handle with gloves and a pill splitter to prevent moisture contact. scopolamine base 1 mg Medication Applied 12/07/2019 12:11 PM 1 patch Behind Right over 3 days 1 patch WAREHOUSE DELIVERY DRIVER Ear (TRANSDERM SCOP) 1 patch, transdermal, Administer [...] Recently Administered Medications Times are shown in WAREHOUSE DELIVERY DRIVER. Scheduled Medication Order 12/05/2019 12/06/2019 12/07/2019 acetaminophen [...] ED) 1207 (Given - Provider: Steph Gallo RBetsy) 4 mg, sublingual, Once, On Tue12/07/19 a [...] (COMPLETED) 1251 (Given - Provider: Gini Garcia, PACKAGE LINE OPERATOR, MARKET RESEARCH LEAD) 1,250 mg (rounded from 1,146 mg = [...]
--- OUTSIDE RECORDS SUMMARY | 2022-08-14 17:56 | XMS_ITS | Encounter Summary ---
:1965 Author Organization [facility] Address [address] [place] [address] Care Team Providers Name Role Phone Unavailable Primary Care Provider Unavailable Encounter Details Date Type Department Care Team Description 10/03/2019 Clinical Communication Department of Robert Diehl, Neurology in .. [place], [place] 200 [facility] 200 [place] [phone] Social History Tobacco Use Types Packs/Day Years [...] you attend congregational or Patient refused 2021 sikhism services? Do [...] Coby this is for you, records request IAC CATH RN Telephone Encounter - Janis Preston R.N. - 10/03/2019 3:11 PM CST Called patient back with update about aspirin per Dr. Diehl. Patient voiced understanding that she will stop the warfarin and continue baby aspirin. She wants notes about her visit sent to her DrBrittonin Ark[place]. Janis Preston R.N. IAC CATH RN Telephone Encounter - Janis Preston R.N. - [...] dose and warfarin discontinuation. Janis Preston R.N. IAC CATH RN documented in this encounter Plan of Treatment Upcoming Encounters Date Type Specialty Care Team Description 09/01/2022 Clinical Communication Admitting/Central Scheduling 09/06/2022 Appointment Radiology Alfredo Herrera O.P.A.-C. [address] [place] [address] 09/06/2022 Office Visit Orthopedic Surgery Cyrus Polk M.D. [address] [place] [address] documented as of this encounter Visit Diagnoses Not on filedocumented in this encounter Additional Health Concerns Assessment Noted Time PHQ-9 Depression Total Score: 5 04/05/2019 8:00 AM CDT documented as of this encounter
--- OUTSIDE RECORDS SUMMARY | 2022-08-14 17:56 | XMS_ITS | Encounter Summary ---
:1965 Author Organization [facility] Address [address] [place] [address] Care Team Providers Name Role Phone Unavailable Primary Care Provider Unavailable Reason for Visit Reason Onset Date Comments MRI from [facility] 10/02/2019 Dr. Diehl Encounter Details Date Type Department Care Team Description 10/02/2019 Clinical Communication Department of Robert Diehl MR [facility] [place] [facility] Bullock, 200 [facility]) [place], [place] [address] [place] [phone] [place], [place] [phone] (Work) [phone] Social History Tobacco Use Types Packs/Day Years [...] you attend spiritism or Patient refused 2021 protestant services? Do [...] I talked with the radiology film room ([facility]) at [facility]. They have pushed the MRI and it should be here soon. TAL ASSET COORDINATOR documented in this encounter Plan of Treatment Upcoming Encounters Date Type Specialty Care Team Description 09/01/2022 Clinical Communication Admitting/Central Scheduling 09/06/2022 Appointment Radiology Alfredo Herrera O.P.A.-C. [address] [place] [address] 09/06/2022 Office Visit Orthopedic Surgery Cyrus Polk M.D. [address] [place] [address] documented as of this encounter Visit Diagnoses Not on filedocumented in this encounter Additional Health Concerns Assessment Noted Time PHQ-9 Depression Total Score: 5 04/05/2019 8:00 AM CDT documented as of this encounter
--- OUTSIDE RECORDS SUMMARY | 2022-08-14 17:56 | XMS_ITS | Encounter Summary ---
:1965 Author Organization [facility] Address [address] [place] [address] Care Team Providers Name Role Phone Unavailable Primary Care Provider Unavailable Encounter Details Date Type Department Care Team Description 12/06/2019 Clinical Communication Department of Robert Diehl, Neurology in .. [place], [place] 200 [facility] 200 [place] [phone] Social History Tobacco Use Types Packs/Day Years [...] you attend zoroastrianism or Patient refused 2021 rastafari services? Do [...] during her next visit. Janis Preston R.N. RAFT DESIGN ENGINEER Telephone Encounter - Janis Preston R.N. - 12/06/2019 1:35 PM CST ----- Message from Robert Diehl M.D. sent at 12/03/2019 10:17 AM AIRCRAFT DESIGN ENGINEER ----- Regarding: FW: Overnight oximetry Good morning Would you be able to reach out and let this patient know the oximetry was unsuccessful and would need to be repeated and ask if they would like to do this? Thank you! Electronically signed by: Robert Diehl M.D. 12/03/19 10:18 AM AIRCRAFT DESIGN ENGINEER ----- Message ----- From: Carolynn Stokes Sent: 11/29/2019 2:39 PM AIRCRAFT DESIGN ENGINEER To: Robert Diehl M.D. Subject: Overnight oximetry Your patients overnight oximetry test did not have recorded data of sufficient duration for an interpretation to be completed and was returned four months after appointment. Therefore an overnight oximetry report will not be generated to [facility]. Please contact your clinical therapy assistant to reschedule an overnight oximetry test if you wish the patient to repeat an overnight oximetry test. RAFT DESIGN ENGINEER documented in this encounter Plan of Treatment Upcoming Encounters Date Type Specialty Care Team Description 09/01/2022 Clinical Communication Admitting/Central Scheduling 09/06/2022 Appointment Radiology Alfredo Herrera O.P.A.-C. [address] [place] [address] 09/06/2022 Office Visit Orthopedic Surgery Cyrus Polk M.D. [address] [place] [address] documented as of this encounter Results PUL Home [...] Organization Address City/State/ZIP Code Phon e Number [place] documented in this encounter Visit Diagnoses Diagnosis Fatigue - Primary Fatigue documented in this encounter Additional Health Concerns Assessment Noted Time PHQ-9 Depression Total Score: 5 04/05/2019 8:00 AM CDT documented as of this encounter
--- OUTSIDE RECORDS SUMMARY | 2022-08-14 17:56 | XMS_ITS | Encounter Summary ---
:1965 Author Organization [facility] Address [address] [place] [address] Care Team Providers Name Role Phone Unavailable Primary Care Provider Unavailable Reason for Visit Outpatient (Routine) - Closed Specialty Diagnoses / Procedures Referred By Contact Refer red To Contact General Surgery Diagnoses Rhinosinusitis Chronic Jey Santana M.D. [facility] [address] [place] [phone] Referral ID Status Reason Start Date Expiration Date Visits Requ ested Visits Authorized [id number] Closed 11/08/2019 11/07/2020 1 1 Encounter Details Date Type Department Care Team Description 11/29/2019 Comprehensive Visit Preoperative Jey Santana M.D. [address] [place] [phone] Preanesthetic Medical Exam (Primary Dx); Evaluation Center in Lanre Carvajal M.D. [address] [place] [phone] Rhinosinusitis Chronic [place], [place] [address] [place] [phone] Social History Tobacco Use Types Packs/Day Years [...] Comments Blood Pressure 108/74 11/29/2019 12:45 PM HOT SEALING MACHINE OPERATOR Pulse 104 11/29/2019 12:45 PM HOT SEALING MACHINE OPERATOR Temperature 36.5 ??C (97.7 ??F) 11/29/2019 12:45 PM HOT SEALING MACHINE OPERATOR Respiratory Rate - - Oxygen Saturation 96% 11/29/2019 12:45 PM HOT SEALING MACHINE OPERATOR Inhaled Oxygen Concentration - - Weight 76.4 kg (168 lb 6.9 oz) 11/29/2019 12:45 PM HOT SEALING MACHINE OPERATOR Height 151.7 cm (4' 11.72) 11/29/2019 12:45 PM HOT SEALING MACHINE OPERATOR Body Mass Index 33.2 11/29/2019 12:45 PM HOT SEALING MACHINE OPERATOR documented in this encounter H&P Notes Lanre Carvajal M.D. - 11/29/2019 12:45 PM CST Preoperative Medical Evaluation Patient Name: Angie Mosqeura Age: 54 y.o. Date of : 1965 Patient Address: [address] [place] [phone] Primary Care Provider: No primary care provider [...] #11 Patent Foramen Ovale (HCC) Noted on [id number]/ ECHO otherwise normal. I will not pursue anything further SEALING MACHINE OPERATOR documented in this encounter Plan of Treatment Upcoming Encounters Date Type Specialty Care Team Description 09/01/2022 Clinical Communication Admitting/Central Scheduling 09/06/2022 Appointment Radiology Alfredo Herrera O.P.A.-C. [address] [place] [address] 09/06/2022 Office Visit Orthopedic Surgery Cyrus Polk M.D. [address] [place] [address] documented as of this encounter Results Creatinine with Estimated GFR - for Lab Draw (11/29/2019 11:30 AM HOT SEALING MACHINE OPERATOR) P athologist Signature Creatinine 0.98 0.59 - 11/29/2019 DTL 1.04 mg/dL 1:05 PM HOT SEALING MACHINE OPERATOR eGFR-Non 65 >=60 11/29/2019 DTL Black/ mL/min/BSA 1:05 PM HOT SEALING MACHINE OPERATOR [place] Comment: ----ADDITIONAL INFORMATION---- Estimated GFR calculated using the 2009 CKD_EPI creatinine equation. eGFR-Black/ 75 >=60 mL/min/BSA 2019 1:05 PM HOT SEALING MACHINE OPERATOR DTL Comment: ----ADDITIONAL INFORMATION---- Estimated GFR calculated using the 2009 CKD_EPI creatinine equation. Specimen Anatomical Collection Method Collection Time Receive d Time (Source) Location / / Volume Laterality Blood (Blood, 11/29/2019 11:30 11/29/2019 Venous) AM HOT SEALING MACHINE OPERATOR 11:50 AM HOT SEALING MACHINE OPERATOR Miranda Collado APRN, C.N.P., M.S.N. LAB BLOOD ADD-ON Performing Organization Address City/State/ZIP Code Phon e Number [facility] - [address] [place], [place] [address] [facility] [place] [address] Laboratories-[facility] [address] documented in this encounter Visit Diagnoses Diagnosis Preanesthetic Medical Exam - Primary Rhinosinusitis Chronic documented in this encounter Additional Health Concerns Assessment Noted Time PHQ-9 Depression Total Score: 5 04/05/2019 8:00 AM CDT documented as of this encounter
--- OUTSIDE RECORDS SUMMARY | 2022-08-14 17:56 | XMS_ITS | Encounter Summary ---
:1965 Author Organization [facility] Address [address] [place] [address] Care Team Providers Name Role Phone Unavailable [...] you attend yazidism or Patient refused 2021 christian services? Do [...] Appointment Radiology Alfredo Herrera O.P.A.-C. [address] [place] [phone] 09/06/2022 Office Visit Orthopedic Surgery Cyrus Polk M.D. [address] [place] [phone] documented as of this encounter Procedures Procedure Name Priority Date/Time Associated Comments Diagnosis OTORHINOLARYNGOLOGY IMAGE Routine 11/29/2019 3:10 Results for this EXAM PM ELECTROGALVANIZING MACHINE OPERATOR procedure are i n the results section. documented in this encounter Results NOSE-Otorhinolaryngology Image Exam (11/29/2019 3:10 PM ELECTROGALVANIZING MACHINE OPERATOR) Specimen (Source) Anatomical Collection Method Collection Time Re ceived Time Location / / Volume Laterality 11/29/2019 3:08 PM ELECTROGALVANIZING MACHINE OPERATOR Narrative [facility] - 11/29/2019 3:58 PM ELECTROGALVANIZING MACHINE OPERATOR This order has been created and [...]
--- OUTSIDE RECORDS SUMMARY | 2022-08-14 17:56 | XMS_ITS | Encounter Summary ---
:1965 Author Organization [facility] Address [address] [place] [address] Care Team Providers Name Role Phone Unavailable Primary Care Provider Unavailable Reason for Visit Reason Onset Date Comments Nicotine Dependence 04/26/2019 Encounter Details Date Type Department Care Team Description 04/26/2019 Clinical Department of Tesfaye Ortega, Nicotine Janet grady Communication Nicotine Kenna D, Dependence, Jordy Alex, [facility], in [place], [place] [address] [place] [address] Social History Tobacco Use Types Packs/Day Years [...] you attend druze or Patient refused 2021 anabaptism services? Do [...] Alfredo Herrera O.P.A.-C. [address] [place] [address] 09/06/2022 Office Visit Orthopedic Surgery Cyrus Polk M.D. [address] [place] [address] documented as of this encounter Visit Diagnoses Not on filedocumented in this encounter Additional Health Concerns Assessment Noted Time PHQ-9 Depression Total Score: 5 04/05/2019 8:00 AM CDT documented as of this encounter
--- OUTSIDE RECORDS SUMMARY | 2022-08-14 17:56 | XMS_ITS | Encounter Summary ---
:1965 Author Organization [facility] Address [address] [place] [address] Care Team Providers Name Role Phone Unavailable Primary Care Provider Unavailable Reason for Referral Outpatient (Routine) - Closed Specialty Diagnoses / Procedures Referred By Contact Refer red To Contact Neurology Robert Diehl M. D. [facility] [address] [place] [phone] Referral ID Status Reason Start Date Expiration Date Visits Requ ested Visits Authorized [id number] Closed 06/28/2019 06/27/2020 1 1 Reason for Visit Outpatient (Routine) - Closed Specialty Diagnoses / Procedures Referred By Contact Refer red To Contact Neurology Diagnoses Stroke (HCC) Thrombosis Arterial (HCC) Aneurysm Cerebral Unruptured (HCC) Fernie Soriano M.D. [facility] [address] [place] [phone] Referral ID Status Reason Start Date Expiration Date Visits Requ ested Visits Authorized [id number] Closed 03/31/2019 03/30/2020 1 1 Encounter Details Date Type Department Care Team Description 06/28/2019 Office Visit Department of Robert Diehl Fatigue ( Primary Dx); Neurology in [place] Stroke (HCC); [place], [place] [address] [facility] Thrombosis Arterial (HCC); [address] [place] [address] Aneurysm Cerebral Unruptured ([place]CC) [place] [phone] Social History Tobacco Use Types Packs/Day Years [...] you attend congregation or Patient refused 2021 quaker services? Do [...] Fatigue PUL Home Overnight Oximetry 2. Stroke ([facility]) Neurology - Cerebrovascular consult (clinic) MR Neck Angiogram without and with IV Contrast PM Device interrogation (clinic) 3. Thrombosis Arterial ([facility]) Neurology - Cerebrovascular consult (clinic) MR Neck Angiogram without and with IV Contrast PM Device interrogation (clinic) 4. Aneurysm Cerebral Unruptured ([facility]) Neurology - Cerebrovascular consult (clinic) documented in this encounter Plan of Treatment Upcoming Encounters Date Type Specialty Care Team Description 09/01/2022 Clinical Communication Admitting/Central Scheduling 09/06/2022 Appointment Radiology Alfredo Herrera O.P.A.-C. [address] [place] [phone] 09/06/2022 Office Visit Orthopedic Surgery Cyrus Polk M.D. [address] [place] [address] Scheduled Orders Name Type Priority Associated Diagnoses Order S chedule PUL Home Overnight PFT Routine Fatigue Expected: 06/28/2019 Oximetry (Approximate), Expires: 06/28/2022 Scheduled Referrals Name Type Priority Associated Diagnoses Order S chedule Neurology office Outpatient Referral Routine Expe cted: [...]
--- OUTSIDE RECORDS SUMMARY | 2022-08-14 17:56 | XMS_ITS | Encounter Summary ---
:1965 Author Organization [facility] Address [address] [place] [address] Care Team Providers Name Role Phone Unavailable Primary Care Provider Unavailable Encounter Details Date Type Department Care Team Description 09/03/2019 Documentation Department of Neurology in Robert Fontanez M.D. [place], [place] 200 [facility] 200 [place] [phone] (Wo rk) Social History Tobacco Use Types [...] you attend advent or Patient refused 2021 sabianism services? Do [...] Appointment Radiology Alfredo Herrera O.P.A.-C. [address] [place] [address] 09/06/2022 Office Visit Orthopedic Surgery Cyrus Polk M.D. [address] [place] [address] documented as of this encounter Visit Diagnoses Not on filedocumented in this encounter Additional Health Concerns Assessment Noted Time PHQ-9 Depression Total Score: 5 04/05/2019 8:00 AM CDT documented as of this encounter
--- OUTSIDE RECORDS SUMMARY | 2022-08-14 17:56 | XMS_ITS | Encounter Summary ---
:1965 Author Organization [facility] Address [address] [place] [address] Care Team Providers Name Role Phone Unavailable Primary Care Provider Unavailable Reason for Visit Reason Onset Date Comments Patient wants letter and notes sent to physician in 10/03/[address] Robert Diehl [facility] Encounter Details Date Type Department Care Team Description 10/03/2019 Clinical Communication Department of Robert Diehl Neurology in [place], [place] letter and notes [address] sent to physician [place], [place] in [facility] ( [address] [place] [phone] Robert Diehl) [place], [place] [phone] (Work) [phone] Social History Tobacco Use Types Packs/Day Years [...] you attend judaism or Patient refused 2021 religion services? Do [...] 3:55 PM CST As per documentation in [facility] on 09/04, a letter has been sent to Dr. Blackwell with the patient's notes from her most recent visit. L SAW OPERATOR documented in this encounter Plan of Treatment Upcoming Encounters Date Type Specialty Care Team Description 09/01/2022 Clinical Communication Admitting/Central Scheduling 09/06/2022 Appointment Radiology Alfredo Herrera O.P.A.-C. [address] [place] [address] 09/06/2022 Office Visit Orthopedic Surgery Cyrus Polk M.D. [address] [place] [phone] documented as of this encounter Visit Diagnoses Not on filedocumented in this encounter Additional Health Concerns Assessment Noted Time PHQ-9 Depression Total Score: 5 04/05/2019 8:00 AM CDT documented as of this encounter
--- OUTSIDE RECORDS SUMMARY | 2022-08-14 17:56 | XMS_ITS | Encounter Summary ---
:1965 Author Organization [facility] Address [address] [place] [address] Care Team Providers Name Role Phone Unavailable Primary Care Provider Unavailable Encounter Details Date Type Department Care Team Description 10/02/2019 Orders Only Department of Robert Diehl Thrombosi s Arterial Neurology in [place] ([facility]) (Primary Dx) [place], [place] [address] [place] [address] 200 [place] [phone] Social History Tobacco Use Types Packs/Day Years [...] Appointment Radiology Alfredo Herrera O.P.A.-C. [address] [place] [address] 09/06/2022 Office Visit Orthopedic Surgery Cyrus Polk M.D. [address] [place] [address] documented as of this encounter Results Interpretation of Outside MR Neck (10/02/2019 1:01 PM MESSENGER OFFICE) Anatomical Region Laterality Modality Neuroradiology RST LOS, Neuroradiology ARZ LOS, N/A Magnetic Resonance Neuroradiology FLA LOS, Neck Specimen (Source) Anatomical Collection Method Collection Time Re ceived Time Location / / Volume Laterality 10/02/2019 1:03 PM MESSENGER OFFICE Impressions 10/02/2019 1:18 PM MESSENGER OFFICE Similar appearance of the distal right vertebral artery irregularity and mild narrowing at C1, r elated to the nonocclusive luminal thrombus, as seen on the prior CTA exams . MRA neck otherwise negative and unchanged. Narrative 10/02/2019 1:18 PM MESSENGER OFFICE EXAM: ??INTERPRETATION OF OUTSIDE MR NECK COMPARISON: [...] . MRA neck otherwise negative and unchanged. Authorizing Provider Result Selma NIELSON MRI PROCEDURES documented in this encounter Visit Diagnoses Diagnosis Thrombosis Arterial (HCC) - Primary Thrombosis Arterial (HCC) documented in this encounter Additional Health Concerns Assessment Noted Time PHQ-9 Depression Total Score: 5 04/05/2019 8:00 AM CDT documented as of this encounter
--- OUTSIDE RECORDS SUMMARY | 2022-08-14 17:56 | XMS_ITS | Encounter Summary ---
:1965 Author Organization [facility] Address [address] [place] [address] Care Team Providers Name Role Phone Unavailable Primary Care Provider Unavailable Encounter Details Date Type Department Care Team Description 11/29/2019 Hospital Encounter Department of Jey Santana, Rhinosi nusitis Chronic; Laboratory Medicine M.D. Preanesthetic Medical Exam and Pathology, [address] [place] [address] in [facility] [phone] [place] [phone] [place] [address] (Work) [place], [place] [phone] (Fax) [phone] Social History Tobacco Use Types Packs/Day Years [...] Appointment Radiology Alfredo Herrera O.P.A.-C. [address] [place] [phone] 09/06/2022 Office Visit Orthopedic Surgery Cyrus Polk M.D. [address] [place] [phone] documented as of this encounter Procedures Procedure Name Priority Date/Time Associated Diagnosis Comme nts CBC WITHOUT Routine 11/29/2019 11:30 Rhinosinusitis Chronic R esults for this DIFFERENTIAL, B AM TUMBLER OPERATOR procedure ar e in the results section. CREATININE WITH Routine 11/29/2019 11:30 Preanesthetic Medical Results for this EGFR, S/P AM TUMBLER OPERATOR Exam procedure are i n the results section. documented in this encounter Results Creatinine with Estimated GFR - for Lab Draw (11/29/2019 11:30 AM TUMBLER OPERATOR) athologist Signature Creatinine 0.98 0.59 - 11/29/2019 DTL 1.04 mg/dL 1:05 PM TUMBLER OPERATOR eGFR-Non 65 >=60 11/29/2019 DTL Black/ mL/min/BSA 1:05 PM TUMBLER OPERATOR [place] Comment: ----ADDITIONAL INFORMATION---- Estimated GFR calculated using the 2009 CKD_EPI creatinine equation. eGFR-Black/ 75 >=60 mL/min/BSA 2019 1:05 PM TUMBLER OPERATOR DTL Comment: ----ADDITIONAL INFORMATION---- Estimated GFR calculated using the 2009 CKD_EPI creatinine equation. Specimen Anatomical Collection Method Collection Time Receive d Time (Source) Location / / Volume Laterality Blood (Blood, 11/29/2019 11:30 11/29/2019 Venous) AM TUMBLER OPERATOR 11:50 AM TUMBLER OPERATOR Miranda Collado APRN, C.N.P., M.S.N. LAB BLOOD ADD-ON Performing Organization Address City/State/ZIP Code Phon e Number [facility] - [address] [place] [phone] [facility] [place] [address] [facility] 200 [facility] (ABNORMAL) CBC without Differential (11/29/2019 11:30 AM TUMBLER OPERATOR) [facility] gist Method Time Signature Hemoglobin 13.3 11.6 - 11/29/2019 DTL 15.0 g/dL 12:09 PM TUMBLER OPERATOR Hematocrit 40.6 35.5 - 11/29/2019 DTL 44.9 % 12:09 PM TUMBLER OPERATOR Erythrocytes 4.08 3.92 - 11/29/2019 DTL 5.13 12:09 PM TUMBLER OPERATOR x10(12)/L MCV 99.5 (H) 78.2 - 11/29/2019 DTL 97.9 fL 12:09 PM TUMBLER OPERATOR RBC Distrib Width 13.3 12.2 - 11/29/2019 DTL 16.1 % 12:09 PM TUMBLER OPERATOR Platelet Count 234 157 - 371 11/29/2019 DTL x10(9)/L 12:09 PM TUMBLER OPERATOR Leukocytes 5.8 3.4 - 9.6 11/29/2019 DTL x10(9)/L 12:09 PM TUMBLER OPERATOR Specimen Anatomical Collection Method Collection Time Receive d Time (Source) Location / / Volume Laterality Blood (Blood, 11/29/2019 11:30 11/29/2019 Venous) AM TUMBLER OPERATOR 11:50 AM TUMBLER OPERATOR Jey Santana M.D. LAB BLOOD ADD-ON Performing Organization Address City/State/ZIP Code Phon e Number [facility] - [address] [place], [place] [address] [facility] [place] [address] [facility] [address] [facility] documented in this encounter Visit Diagnoses Diagnosis Rhinosinusitis Chronic Preanesthetic Medical Exam documented in this encounter Additional Health Concerns Assessment Noted Time PHQ-9 Depression Total Score: 5 04/05/2019 8:00 AM CDT documented as of this encounter
--- OUTSIDE RECORDS SUMMARY | 2022-08-14 17:56 | XMS_ITS | Encounter Summary ---
:1965 Author Organization [facility] Address [address] [place] [address] Care Team Providers Name Role Phone Unavailable Primary Care Provider Unavailable Reason for Visit Reason Onset Date Comments wants to have MRI done closer to home before appt 09/03/2019 [facility] Encounter Details Date Type Department Care Team Description 09/03/2019 Clinical Communication Department of [facility] Robert cabrera nts to have MRI Neurology in [place], [place] done closer to home [place], [facility] before appt [place], [place] ([facility]) [address] [facility] [address] [place], [place] [phone] (Work) [phone] Social History Tobacco Use Types Packs/Day Years [...] you attend amish or Patient refused 2021 mu-ism services? Do [...] for MRA faxed to Dr. Blackwell at [facility] at fax [phone]. Called the patient and left a message [...] like to have her MRI done at [facility] [place] [facility] and [facility] before her appointment with Dr. Diehl on 09/19. Or if she could get her MRI scheduled for the same day as she is here for her appointment. She doesn't want to drive 2 days in a row. She wanted the order sent to Dr. Blackwell so I guess just send notes to Dr. Clemente Blackwell at [facility] Phone- [phone] documented in this encounter Plan of Treatment Upcoming Encounters Date Type Specialty Care Team Description 09/01/2022 Clinical Communication Admitting/Central Scheduling 09/06/2022 Appointment Radiology Alfredo Herrera O.P.A.-C. [address] [place] [address] 09/06/2022 Office Visit Orthopedic Surgery Cyrus Polk M.D. [address] [place] [address] documented as of this encounter Visit Diagnoses Not on filedocumented in this encounter Additional Health Concerns Assessment Noted Time PHQ-9 Depression Total Score: 5 04/05/2019 8:00 AM CDT documented as of this encounter
--- OUTSIDE RECORDS SUMMARY | 2022-08-14 17:56 | XMS_ITS | Encounter Summary ---
:1965 Author Organization [facility] Address [address] [place] [address] Care Team Providers Name Role Phone Unavailable Primary Care Provider Unavailable Reason for Referral Outpatient (Routine) - Closed Specialty Diagnoses / Procedures Referred By Contact Refer herson To Contact General Surgery Diagnoses Rhinosinusitis Chronic Jey Gomez M.D. [address] [phone] Referral ID Status Reason Start Date Expiration Date Visits Requ ested Visits Authorized [id number] Closed 11/08/2019 11/07/2020 1 1 utpatient (Routine) - Closed Specialty Diagnoses / Procedures Referred By Contact Clyde bains To Contact Otorhinolaryngology Jey Gomez M.D. [address] [phone] Referral ID Status Reason Start Date Expiration Date Visits Requ ested Visits Authorized [id number] Closed 11/08/2019 11/07/2020 1 1 Scheduling Instructions EKO listing visit and NESHA 11/29/2019 TRAFFIC MANAGER Reason for Visit Reason Onset Date Comments reschedule surgery 11/07/2019 Patient was a no sydni w for surgery with Dr. Olmedo on 11/05/19. Encounter Details Date Type Department Care Team Description 11/07/2019 Clinical Department of shawna Olmedo Communication Otorhinolaryngology in [place], surg silva (Patient [place], [place] M.D. was a no show for [address] [place]. [place], [place] [phone] SHAHANA Rusk on [phone] Venus, 11/05/19.) [place] [address] Social History Tobacco Use Types Packs/Day Years [...] you attend mormonism or Patient refused 2021 jewish services? Do [...] Tanvi White R.N. - 11/09/2019 10:02 AM PORT TRAFFIC MANAGER Patient called to let her know of the preoperative appointments and listing appointment with Dr. Darlin Olmedo. She was also informed that she does not have to stop the aspirin 81 mg for surgery. She verbalized understanding regarding the use of aspirin and was appreciative of the call. TRAFFIC MANAGER Telephone Encounter - Jey Gomez M.D. - 11/08/2019 5:00 PM CST Kosta Wu I placed the NESHA, listing visit, and created the listing. She can stay on her 81 ASA. Thank you. TRAFFIC MANAGER Addendum Note - Jey Gomez M.D. - 11/08/2019 4:59 PM PORT TRAFFIC MANAGER Addended by: JEY GOMEZ on: 11/08/2019 04:59 PM Modules accepted: Orders TRAFFIC MANAGER Telephone Encounter - Tanvi White R.N. - 11/08/2019 10:59 AM PORT TRAFFIC MANAGER SUBJECTIVE CHIEF COMPLAINT / REASON FOR CALL [...] the surgical date. She will require a transportation driver and that plan will work better for her. Disposition/Recommendation: Patient is aware that she will need to call in the night before surgeryfor a report [facility]. Information/Education: patient/caller able to teach back Caller agreeable to plan of care: yes The following references were used: nursing clinical judgement TRAFFIC MANAGER Telephone Encounter - Darlin Olmedo M.D. - 11/08/2019 10:16 AM CST Any of those days are fine. I should see her for a listing visit and NESHA. thanks TRAFFIC MANAGER Telephone Encounter - Tanvi White R.N. - 11/07/2019 1:34 PM PORT TRAFFIC MANAGER SUBJECTIVE CHIEF COMPLAINT / REASON FOR CALL [...] following references were used: nursing clinical judgement TRAFFIC MANAGER documented in this encounter Plan of Treatment Upcoming Encounters Date Type Specialty Care Team Description 09/01/2022 Clinical Communication Admitting/Central Scheduling 09/06/2022 Appointment Radiology Alfredo Herrera O.P.A.-C. [address] [place] [phone] 09/06/2022 Office Visit Orthopedic Surgery Cyrus Polk M.D. [address] [place] [phone] Scheduled Referrals Name Type Priority Associated Diagnoses Order S chedule Otorhinolaryngology office Outpatient Routine E xpected: visit (clinic) Referral 11/29/2019, Expires: 11/08/2022 Preoperative Evaluation Outpatient Routine Rhinosinusitis Ex pected: NESHA consult (clinic) Referral Chronic 020 (Approximate), Expires: 11/08/2022 documented as of this encounter Results (ABNORMAL) CBC without Differential (11/29/2019 11:30 AM PORT TRAFFIC MANAGER) [facility] gist Method Time Signature Hemoglobin 13.3 11.6 - 11/29/2019 DTL 15.0 g/dL 12:09 PM PORT TRAFFIC MANAGER Hematocrit 40.6 35.5 - 11/29/2019 DTL 44.9 % 12:09 PM PORT TRAFFIC MANAGER Erythrocytes 4.08 3.92 - 11/29/2019 DTL 5.13 12:09 PM PORT TRAFFIC MANAGER x10(12)/L MCV 99.5 (H) 78.2 - 11/29/2019 DTL 97.9 fL 12:09 PM PORT TRAFFIC MANAGER RBC Distrib Width 13.3 12.2 - 11/29/2019 DTL 16.1 % 12:09 PM PORT TRAFFIC MANAGER Platelet Count 234 157 - 371 11/29/2019 DTL x10(9)/L 12:09 PM PORT TRAFFIC MANAGER Leukocytes 5.8 3.4 - 9.6 11/29/2019 DTL x10(9)/L 12:09 PM PORT TRAFFIC MANAGER Specimen Anatomical Collection Method Collection Time Receive d Time (Source) Location / / Volume Laterality Blood (Blood, 11/29/2019 11:30 11/29/2019 Venous) AM PORT TRAFFIC MANAGER 11:50 AM PORT TRAFFIC MANAGER Jey Gomez M.D. LAB BLOOD ADD-ON Performing Organization Address City/State/ZIP Code Phon e Number [facility] - [address] [place], [place] [address] [facility] [place] [address] Laboratories-[facility] 200 [facility] documented in this encounter Visit Diagnoses Diagnosis Rhinosinusitis Chronic - Primary documented in this encounter Additional Health Concerns Assessment Noted Time PHQ-9 Depression Total Score: 5 04/05/2019 8:00 AM CDT documented as of this encounter
--- OUTSIDE RECORDS SUMMARY | 2022-08-14 17:57 | XMS_ITS | Encounter Summary ---
:1965 Author Organization [facility] Address [address] [place] [address] Care Team Providers Name Role Phone Unavailable Primary Care Provider Unavailable Reason for Visit Reason Onset Date Comments Prior Medical Records/Sinus CT 03/02/2019 Encounter Details Date Type Department Care Team Description 03/02/2019 Clinical Department of Honorio, Prior Medical Communication Otorhinolaryngology in [place] rds/Sinus CT [place], [place] Lilian 200 [facility] [address] [place] [phone] [place] [address] Social History Tobacco Use Types Packs/Day Years [...] you attend anglican or Patient refused 2021 mormon services? Do [...] 8:13 AM CDT Per [place] (Dr. Olmedo), [facility] (Dr. Mckeon) ([phone]) was contacted. The previousmedical records have been received and sent for scanning into pt's chart. [facility] will be pushed. Coby documented in this encounter Plan of Treatment Upcoming Encounters Date Type Specialty Care Team Description 09/01/2022 Clinical Communication Admitting/Central Scheduling 09/06/2022 Appointment Radiology Alfredo Herrera O.P.A.-C. [address] [place] [address] 09/06/2022 Office Visit Orthopedic Surgery Cyrus Polk M.D. [address] [place] [address] documented as of this encounter Visit Diagnoses Not on filedocumented in this encounter
--- OUTSIDE RECORDS SUMMARY | 2022-08-14 17:57 | XMS_ITS | Encounter Summary ---
:1965 Author Organization [facility] Address [address] [place] [address] Care Team Providers Name Role Phone Unavailable [...] Clinical Communication Admitting/Central Scheduling 09/06/2022 Appointment Radiology Alrfedo Herrera O.P.A.-C. [address] [place] [address] 09/06/2022 Office Visit Orthopedic Surgery Cyrus Polk M.D. [address] [place] [address] documented as of this encounter Procedures Procedure [...]
--- OUTSIDE RECORDS SUMMARY | 2022-08-14 17:57 | XMS_ITS | Encounter Summary ---
:1965 Author Organization [facility] Address [address] [place] [address] Care Team Providers Name Role Phone Unavailable Primary Care Provider Unavailable Reason for Visit Outpatient (Routine) - Closed Specialty Diagnoses / Procedures Referred By Contact Refer red To Contact Otorhinolaryngology Diagnoses Sinus Nose [facility] [place] [address] [place] [address] Referral ID Status Reason Start Date Expiration Date Visits Requ ested Visits Authorized [id number] Closed 01/10/2019 01/10/2020 1 1 Encounter Details Date Type Department Care Team Description 03/01/2019 Comprehensive Visit Department of Honorio, Sinusit is Chronic (Primary Dx); Otorhinolaryngology in [place] , [facility] 200 [facility] 200 [place] [phone] [place] [phone] Social History Tobacco Use Types Packs/Day Years [...] you attend jain or Patient refused 2021 restorationist services? 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 Decongestion: no improvement with decongestion. Modified Cherry: not performed. Rigid exam with a 30 [...] obtained. - Obtained outside operative reports from [place] - Discussed risks and benefits including but [...] Appointment Radiology Alfredo Herrera O.P.A.-C. [address] [place] [address] 09/06/2022 Office Visit Orthopedic Surgery Cyrus Polk M.D. [address] [place] [address] documented as of this encounter Visit Diagnoses Diagnosis Sinusitis Chronic - Primary Sinus Nose Disorder documented in this encounter
--- OUTSIDE RECORDS SUMMARY | 2022-08-14 17:57 | XMS_ITS | Encounter Summary ---
:1965 Author Organization [facility] Address [address] [place] [address] Care Team Providers Name Role Phone Elsewhere, Pcp Primary Care Provider Unavailable Reason for Referral Outpatient (Routine) - Closed Specialty Diagnoses / Procedures Referred By Contact Refer red To Contact Otorhinolaryngology Diagnoses Sinus Nose Disorder Sinusitis Chronic Chris Mckeon [facility] M.D. [address] [place] [address] Referral ID Status Reason Start Date Expiration Date Visits Requ ested Visits Authorized [id number] Closed 01/10/2019 01/10/2020 1 1 NICS SYSTEMS ENGINEER Encounter Details Date Type Department Care Team Description 01/10/2019 [facility] Mike, Sinu s Nose Disorder (Primary Dx); AND CLINICS Chris Celaya M.D. Sinusitis Chronic 1999 [facility] [address] [place] [address] [place], [place] [phone] Social History Tobacco Use Types Packs/Day Years [...] you attend methodist or Patient refused 2021 mu-ism services? Do [...] Appointment Radiology Alfredo Herrera O.P.A.-C. [address] [place] [address] 09/06/2022 Office Visit Orthopedic Surgery Cyrus Polk M.D. [address] [place] [address] Scheduled Referrals Name Type Priority Associated Order Schedule Diagnoses Otolaryngology Referral Outpatient Referral Routine Sinus Nose Expected: Disorder 01/10/2019 Sinusitis Chronic (Approxima te), Expires: 01/10/2022 documented as of this encounter Visit Diagnoses Diagnosis Sinus Nose Disorder - Primary Sinusitis Chronic documented in this encounter Additional Health Concerns Infection Onset Date Last Indicated Resolved Time COVID19 Pending 01/31/2021 01/31/2021 01/31/2021 10:53 PM AVIONICS SYSTEMS ENGINEER COVID19 Pending 02/10/2021 02/11/2021 02/11/2021 1:09 AM CDT COVID19 Pending 12/29/2021 12/29/2021 12/29/2021 4:20 PM AVIONICS SYSTEMS ENGINEER COVID19 Pending 02/25/2022 02/25/2022 02/25/2022 3:59 PM CDT COVID19 Pending 05/17/2022 05/17/2022 05/17/2022 2:34 PM CDT COVID19 Pending 06/15/2022 06/15/2022 06/15/2022 8:24 PM CDT documented as of this encounter Care Teams Marine Oiler Relationship Specialty Start Date End Date Elsewhere, Pcp PCP - General Family Medicine 12/25/21 documented as of this encounter
--- OUTSIDE RECORDS SUMMARY | 2022-08-14 17:57 | XMS_ITS | Encounter Summary ---
:1965 Author Organization [facility] Address [address] [place] [address] Care Team Providers Name Role Phone Unavailable Primary Care Provider Unavailable Reason for Visit Reason Onset Date Comments [facility] Med Request 03/30/2019 Encounter Details Date Type Department Care Team Description 03/30/2019 Clinical Communication [facility] Med Request Nicotine Kenna Bose M.S., [place], C.T.T.S[facility] [place], [place] [address] [place] [address] Social History Tobacco Use Types Packs/Day Years [...] you attend restorationist or Patient refused 2021 hindu services? Do [...] CDT Please send the following to the [facility] 1) 14 mg patch 2) Varenicline (please include starter pack and continued pack) 3) inhaler documented in this encounter Plan of Treatment Upcoming Encounters Date Type Specialty Care Team Description 09/01/2022 Clinical Communication Admitting/Central Scheduling 09/06/2022 Appointment Radiology Alfredo Herrera O.P.A.-C. [address] [place] [address] 09/06/2022 Office Visit Orthopedic Surgery Cyrus Polk M.D. [address] [place] [address] documented as of this encounter Visit Diagnoses Not on filedocumented in this encounter Additional Health Concerns Assessment Noted Time PHQ-9 Depression Total Score: 13 03/30/2019 1:48 PM CD T documented as of this encounter
--- OUTSIDE RECORDS SUMMARY | 2022-08-14 17:57 | XMS_ITS | Encounter Summary ---
:1965 Author Organization [facility] Address [address] [place] [address] Care Team Providers Name Role Phone Unavailable [...] you attend quaker or Patient refused 2021 mandaeism services? Do [...] Appointment Radiology Alfredo Herrera O.P.A.-C. [address] [place] [address] 09/06/2022 Office Visit Orthopedic Surgery Cyrus Polk M.D. [address] [place] [address] documented as of this encounter Visit Diagnoses Not on filedocumented in this encounter
--- OUTSIDE RECORDS SUMMARY | 2022-08-14 17:57 | XMS_ITS | Encounter Summary ---
:1965 Author Organization [facility] Address [address] [place] [id number] Care Team Providers Name Role Phone Unavailable Primary Care Provider Unavailable Encounter Details Date Type Department Care Team Description 04/04/2019 - Hospital Encounter [facility] [place], Stroke (H CC) (Primary Dx); 04/05/2019 [facility] M.D. Decline Functional Status; [facility], [address] [place] [address] Second floor [id number] [place] [address] [place], [place] (Work) [phone] Social History Tobacco Use [...] you attend mosque or Patient refused 2021 yarsani services? Do [...] up with your primary care provider in [place], [place] for ongoing monitoring of this. - Follow-up in [facility] (Dr. Diehl) in approximately 3 months??? [...] use disorder who initially was admitted to [facility] from 03/29/2019 to 03/31/2019 after presenting [...] use disorder who initially was admitted to [facility] from 03/29/2019 to 03/31/2019 after presenting [...] up with your primary care provider in [place], [place] for ongoing monitoring of this. - Follow-up in [facility] (Dr. Diehl) in approximately 3 months??? [...] only on level surfaces with therapist managing cardiac rehabilitation specialist while inpatient. Stairs not assessed. RECOMMENDATIONS: Recommend [...] by Jessie Candelario P.T., D.P.T. Contact information: [facility], [address] Beryl Gaytan, Laquita Guardado - 04/05/2019 7:21 AM CDT Take a copy of this after visit summary to your appointment(s). [place], [place] April 10, 2019 -Tuesday --11:15 AM - Hospital Follow-Up with Dr. Rosalva MD Colleague of Juana Franz MD primary care provider, at [facility] RECOMMENDATIONS: * * [facility] You may have outpatient appointments at [facility] that changed during your hospitalization. Refer to your [facility] Patient Visit Guide (PVG) for the most current schedule of appointments and detailed instructions of tests/procedures. Call [phone], if you did not receive an PVG [...] No acute overnight events. Vertigo has improved. Ioqn-ed-vwxecrry headache continues. No new symptoms or concerns. [...] use disorder who initially was admitted to [facility] from 03/29/2019 to 03/31/2019 after presenting [...] being followed by a provider at the [facility]. Dose was increased to 1.5 tabs (of [...] shows no new changes. MRI may not exchange mechanic at this point as she is now [...] 0 and symmetric in all muscle groups. Mxqchz-hktb-eqpsof and heel- montes testing is normal. Deep [...] to clarify this, but would not necessarily exchange mechanic. An MRI brain with and without contrast [...] baseline. Have triaged to therapy only; no information technology professor consult appears to be necessary at this time. If at any time, the therapists or referring service feel that a information technology professor review is necessary, please send a new [...] Prior Function / Occupational Profile Level of Ogle: Independent with ADLs and functional transfers Lives [...] Goal Met 04/05/19 Progress: Improving as expected @[id number])@ Plan Patient agrees with the plan of [...] Prior Function / Occupational Profile Level of Ogle: Independent with ADLs and functional transfers Lives [...] for safety and for therapist to bring cardiac rehabilitation specialist, no obvious loss of balance noted, patient appeared steady with quick turns Training/Intervention: supervision for therapist to bring cardiac rehabilitation specialist Response: Patient mobilizing 200+ meters with no [...] for safety and for therapist to bring cardiac rehabilitation specialist, no obvious loss of balance noted, patient appeared steady with quick turns Training/Intervention: supervision for therapist to bring cardiac rehabilitation specialist Response: Patient mobilizing 200+ meters with no [...] use disorder who initially was admitted to [facility] from 03/29/2019 to 03/31/2019 after presenting [...] 09/06/2022 Appointment Radiology Alfredo Herrera O.P.A.-CBritton [address] [place] [phone] 09/06/2022 Office Visit Orthopedic Surgery Cyrus Polk M.D. [address] [place] [address] documented as of this encounter Procedures Procedure [...] Potassium, S 4.1 3.6 - 5.2 04/05/2019 [facility] mmol/L 9:28 AM CDT LABORATORIES - [facility] Sodium, S 142 135 - 145 04/05/2019 [facility] mmol/L 9:28 AM CDT [facility]ATOR[facility] - [facility] Chloride, S 105 98 - 107 04/05/2019 [facility] mmol/L 9:28 AM CDT [facility] - [facility] Bicarbonate, S 25 22 - 29 04/05/2019 [facility] mmol/L 9:28 AM CDT LABORATORIES [facility] Anion Gap 12 7 - 15 04/05/2019 [facility] 9:28 AM CDT LABORATORIES [facility] BUN (Blood Urea 20 6 - 21 04/05/2019 [facility] Nitrogen), S mg/dL 9:28 AM CDT LABORATORIES [facility] Creatinine 0.88 0.59 - 04/05/2019 [facility] 1.04 mg/dL 9:28 AM CDT LAB[facility]ATORIES [facility] eGFR-Non 74 >=60 04/05/2019 [facility] Black/ mL/min/BSA 9:28 AM CDT LABORATORIES - [facility] Comment: ----ADDITIONAL INFORMATION---- Estimated GFR calculated using the 2009 CKD_EPI creatinine equation. eGFR-Black/ 86 >=60 mL/min/BSA 04/05/2019 9:[address] [facility] CDT LABORATORIES [facility] Comment: ----ADDITIONAL INFORMATION---- Estimated GFR calculated using the 2009 CKD_EPI creatinine equation. Calcium, Total, S 9.2 8.6 - 10.0 mg/dL 04/05/2019 9:28 AM [facility] CDT LAB[facility]ATORIES [facility] Glucose, S 124 70 - 140 mg/dL 04/05/2019 9:28 AM [facility] CDT [facility]IES [facility] Specimen Anatomical Collection Method Collection Time Receive d Time (Source) Location / / Volume Laterality Blood (Blood, 04/05/2019 8:07 AM 04/05/20 19 8:26 Venous) CDT AM CDT Clemente Aiken M.D. LAB BLOOD ADD-ON Performing Organization Address City/State/ZIP Code Phon e Number [facility] LABORATORIES - [address] [place] [phone] [facility] CBC with Differential, Blood (04/05/2019 8:07 AM CDT) [facility] gist Method Time Signature Hemoglobin 12.9 11.6 - 04/05/2019 [facility] 15.0 g/dL 8:38 AM CDT LAB[facility]ATORIES - [facility] Hematocrit 38.0 35.5 - 04/05/2019 [facility] 44.9 % 8:38 AM CDT [facility] - [facility] Erythrocytes 3.94 3.92 - 04/05/2019 [facility] 5.13 8:38 AM CDT LABORATORIES - x10(12)/L [facility] MCV 96.4 78.2 - 04/05/2019 [facility] 97.9 fL 8:38 AM CDT LAB[facility]ATORIES - [facility] RBC Distrib Width 13.2 12.2 - 04/05/2019 [facility] 16.1 % 8:38 AM CDT [facility] - [facility] Platelet Count 226 157 - 371 04/05/2019 [facility] x10(9)/L 8:38 AM CDT [facility] - [facility] Leukocytes 5.5 3.4 - 9.6 04/05/2019 [facility] x10(9)/L 8:38 AM CDT [facility] - [facility] Neutrophils 3.00 1.56 - 04/05/2019 [facility] 6.45 8:38 AM CDT LABORATORIES - x10(9)/L [facility] Lymphocytes 1.84 0.95 - 04/05/2019 [facility] 3.07 8:38 AM CDT LABORATORIES - x10(9)/L [facility] Monocytes 0.37 0.26 - 04/05/2019 [facility] 0.81 8:38 AM CDT LABORATORIES - x10(9)/L [facility] Eosinophils 0.22 0.03 - 04/05/2019 [facility] 0.48 8:38 AM CDT LABORATORIES - x10(9)/L [facility] Basophils 0.05 0.01 - 04/05/2019 [facility] 0.08 8:38 AM CDT LABORATORIES - x10(9)/L [facility] Specimen Anatomical Collection Method Collection Time Receive d Time (Source) Location / / Volume Laterality Blood (Blood, 04/05/2019 8:07 AM 04/05/20 19 8:26 Venous) CDT AM CDT Clemente Aiken M.D. LAB BLOOD ADD-ON Performing Organization Address City/State/ZIP Code Phon e Number [facility]IES - [address] [place], [place] [address] [facility] (ABNORMAL) Prothrombin Time (PT/INR) (04/05/2019 8:07 AM CDT) Patholo gist Method Time Signature Prothrombin 21.9 (H) 9.4 - 04/05/2019 [facility] Time, P 12.5 sec 8:44 AM CDT LABORATORIES - [facility] INR 2.0 0.9 - 1.1 04/05/2019 [facility] 8:44 AM CDT LABORATORIES [facility] Comment: ----ADDITIONAL INFORMATION---- Standard intensity [...] [facility] - [address] [place] [address] [facility] CT Head Neck Angiogram with [...] Heparin Anti-Xa Assay (04/04/2019 6:56 PM CDT) P athologist Signature Heparin 0.81 IU/mL 04/04/2019 [facility] Anti-Xa, P 7:40 PM CDT LABORATORIES [facility] Comment: [facility] therapeutic range: ?? [...] LAB BLOOD NON ADD-ON Performing Organization Address City/[facility] Phon e Number [facility] LABORATORIES - [address] [place], [place] [address] [facility] (ABNORMAL) Prothrombin Time (PT/INR) (04/04/2019 5:25 PM CDT) [facility] gist Method Time Signature Prothrombin 20.1 (H) 9.4 - 04/04/2019 [facility] Time, P 12.5 sec 5:54 PM CDT LABORATORIES [facility] INR 1.8 0.9 - 1.1 04/04/2019 [facility] 5:54 PM CDT LAB[facility]ATORIES - [facility] Comment: ----ADDITIONAL INFORMATION---- Standard intensity warfarin therapeutic range: 2.0 to 3.0 ?? High intensity warfarin therapeutic rang e: 2.5 to 3.5 Specimen Anatomical Collection Method Collection Time Receive d Time (Source) Location / / Volume Laterality Blood (Blood, 04/04/2019 5:25 PM 04/04/20 19 5:32 Venous) CDT PM CDT Clemente Aiken M.D. LAB BLOOD ADD-ON Performing Organization Address City/[facility] Phon e Number [facility]ATORIES - 200 [facility] [place] [address] [facility] (ABNORMAL) CBC with Differential, Blood (04/04/2019 5:25 PM CDT) [facility] Method Time Signature Hemoglobin 12.1 11.6 - 04/04/2019 [facility] 15.0 g/dL 5:35 PM CDT LABORATORIES - [facility] Hematocrit 36.3 35.5 - 04/04/2019 [facility] 44.9 % 5:35 PM CDT LABORATORIES - [facility] Erythrocytes 3.76 (L) 3.92 - 04/04/2019 [facility] 5.13 5:35 PM CDT LABORATORIES - x10(12)/L [facility] MCV 96.5 78.2 - 04/04/2019 [facility] 97.9 fL 5:35 PM CDT LABORATORIES - [facility] RBC Distrib 12.9 12.2 - 04/04/2019 [facility] Width 16.1 % 5:35 PM CDT LAB[facility]ATORIES - [facility] Platelet Count 224 157 - 371 04/04/2019 [facility] x10(9)/L 5:35 PM CDT LABORATORIES - [facility] Leukocytes 4.6 3.4 - 9.6 04/04/2019 [facility] x10(9)/L 5:35 PM CDT LABORATORIES - [facility] Neutrophils 2.09 1.56 - 04/04/2019 [facility] 6.45 5:35 PM CDT LABORATORIES - x10(9)/L [facility] Lymphocytes 1.88 0.95 - 04/04/2019 [facility] 3.07 5:35 PM CDT LABORATORIES - x10(9)/L [facility] Monocytes 0.39 0.26 - 04/04/2019 [facility] 0.81 5:35 PM CDT LABORATORIES - x10(9)/L [facility] Eosinophils 0.18 0.03 - 04/04/2019 [facility] 0.48 5:35 PM CDT LABORATORIES - x10(9)/L [facility] Basophils 0.04 0.01 - 04/04/2019 [facility] 0.08 5:35 PM CDT LABORATORIES - x10(9)/L [facility] Specimen Anatomical Collection Method Collection Time Receive d Time (Source) Location / / Volume Laterality Blood (Blood, 04/04/2019 5:25 PM 04/04/20 19 5:32 Venous) CDT PM CDT Clemente Aiken M.D. LAB BLOOD ADD-ON Performing Organization Address City/[facility]/ZIP Code Phon e Number [facility] LAB[facility]ATORIES - [address] [place], [place] [address] [facility] (ABNORMAL) APTT (Activated Partial Thromboplastin Time) (04/04/2019 5:25 PM CDT) Analysis Performed At Patho logist Time Signature Activated 44 (H) 25 - 37 04/04/2019 [facility] Partial sec 5:57 PM CDT [facility] Specimen Anatomical Collection Method Collection Time Receive d Time (Source) Location / / Volume Laterality Blood (Blood, 04/04/2019 5:25 PM 04/04/20 19 5:32 Venous) CDT PM CDT Clemente Aiken M.D. LAB BLOOD ADD-ON Performing Organization Address City/[facility]/ZIP Code Phon e Number [facility]ATORIES - [address] [place], [place] [address] [facility] Magnesium (04/04/2019 5:25 PM CDT) P athologist Signature Magnesium, S 2.3 1.7 - 2.3 04/04/2019 [facility] mg/dL 6:21 PM CDT [facility] - [facility] Specimen Anatomical Collection Method Collection Time Receive d Time (Source) Location / / Volume Laterality Blood (Blood, 04/04/2019 5:25 PM 04/04/20 19 5:40 Venous) CDT PM CDT Clemente Aiken M.D. LAB BLOOD ADD-ON Performing Organization Address City/[facility]/ZIP Code Phon e Number [facility]IES - [address] [place] [phone] [facility] Phosphorus Inorganic (04/04/2019 5:25 PM CDT) Analysis Performed At Patho logist Time Signature Phosphorus 3.8 2.5 - 4.5 04/04/2019 [facility] (Inorganic), S mg/dL 6:21 PM CDT [facility] Specimen Anatomical Collection Method Collection Time Receive d Time (Source) Location / / Volume Laterality Blood (Blood, 04/04/2019 5:25 PM 04/04/20 19 5:40 Venous) CDT PM CDT Clemente Aiken M.D. LAB BLOOD ADD-ON Performing Organization Address City/State/ZIP Code Phon e Number [facility]IES - [address] [place], [place] [address] [facility] (ABNORMAL) Comprehensive Metabolic Panel (04/04/2019 5:25 PM CDT) [facility] Method Time Signature Potassium, S 3.5 (L) 3.6 - 5.2 04/04/2019 [facility] mmol/L 6:21 PM CDT LABORATORIES - [facility] Sodium, S 141 135 - 145 04/04/2019 [facility] mmol/L 6:21 PM CDT LAB[facility]ATORIES - [facility] Chloride, S 105 98 - 107 04/04/2019 [facility] mmol/L 6:21 PM CDT LAB[facility]ATORIES - [facility] Bicarbonate, S 23 22 - 29 04/04/2019 [facility] mmol/L 6:21 CDT [facility]ATORIES - [facility] Anion Gap 13 7 - 15 04/04/2019 [facility] 6:21 PM CDT LAB[facility]ATORIES - [facility] BUN (Blood Urea 20 6 - 21 04/04/2019 [facility] Nitrogen), S mg/dL 6:21 PM CDT LABORATORIES - [facility] Creatinine 0.90 0.59 - 04/04/2019 [facility] 1.04 6:21 CDT LABORATORIES - mg/dL [facility] eGFR-Non 72 >=60 04/04/2019 [facility] Black/ mL/min/BS 6:21 CDT LABORATORIES - [place] [facility] Comment: ----ADDITIONAL INFORMATION---- Estimated GFR calculated using the 2009 CKD_EPI creatinine equation. eGFR-Black/ 83 >=60 mL/min/BSA 04/04/2019 6:21 [facility] Haitian CDT LABORATORIES - [facility] Comment: ----ADDITIONAL INFORMATION---- Estimated GFR calculated using the 2009 CKD_EPI creatinine equation. Calcium, Total, S 8.6 8.6 - 10.0 04/04/2019 6:21 [facility] mg/dL CDT LAB[facility]ATORIES - [facility] Glucose, S 96 70 - 140 04/04/2019 6:21 [facility] mg/dL PM CDT LABORATORIES - [facility] Protein, Total, S 6.2 (L) 6.3 - 7.9 04/04/2019 6:21 [facility] g/dL PM CDT LABORATORIES - [facility] Albumin, S 4.1 3.5 - 5.0 04/04/2019 6:21 [facility] g/dL PM CDT LABORATORIES - [facility] Aspartate 21 8 - 43 U/L 04/04/2019 6:21 [facility] Aminotransferase (AST), PM CDT LABORA TORIES - S [facility] Alkaline Phosphatase, S 73 35 - 104 U/L 04/04/2019 6: 21 [facility] PM CDT LABORATORIES - [facility] Alanine Aminotransferase 14 7 - 45 U/L 04/04/2019 6:2 1 [facility] (ALT), S PM CDT LABORATORIES - [facility] Bilirubin, Total, S 0.2 <=1.2 mg/dL 04/04/2019 6:21 [facility] PM CDT LABORATORIES - [facility] Specimen Anatomical Collection Method Collection Time Receive d Time (Source) Location / / Volume Laterality Blood (Blood, 04/04/2019 5:25 PM 04/04/20 19 5:40 Venous) CDT PM CDT Clemente Aiken M.D. LAB BLOOD ADD-ON Performing Organization Address City/State/ZIP Code Phon e Number [facility] LABORATORIES - [address] [place], [place] [address] [facility] documented in this encounter Visit [...] times daily PRN, anxiety, Starting on T 04/05/19 at 0950 enoxaparin injection 70 mg [...] 04/04/2019 04/05/2019 acetaminophen tablet 1,000 mg (TYLENOL) 0407 (Given - Provider: Dia Stafford RBetsy)1407 (Given - Provider: Dia Stafford R.N.) 1,000 mg, oral, Every 6 hours, First dose on Tue04/05/19 at 0800 atorvastatin tablet 40 mg (LIPITOR) 2157 (Given - Provider: Beryl Cleary R.N.) 40 mg, oral, Daily at bedtime, First dose on Tue04/04/19 at 2100 cetirizine tablet 10 mg (ZyrTEC) 2156 (Given - P rovider: Beryl Cleary R.N.) [...] g/actuation inhaler 1 puff (BREO ELLIPTA DISKUS) 0934 (Given - Provid er: Tyler Naik R.N.) 1 puff, inhalation, Daily (RT), First do se on Tue04/05/19 at 0800, fluticasone/vilanterol diskus 100/25 mcg was interchanged for Mometasone/Formoterol fluticasone propionate 50 mcg/actuation nasal spray 2 spray (FLONASE) 2209 (Given - Provider: Beryl Cleary R.N.) 2 [...] split tablet. pregabalin capsule 150 mg (LYRICA) 40 (Given - Provider: Dia Stafford R.N.) 150 [...] Daily, First dose on Tue04/05/19 at 0900 warfarin management (COUMADIN) 1930 (Due) oral, Daily, First dose on Tue04/04/19 [...] Kiara Curry R.N., CRN - Comment: LOT# [id number]) 1-200 mL, intravenous, Once in imaging, contrast, [...] IR 5, Starting on Tue04/05/19 at 0830 polyethylene glycol powder packet 17 [...]
--- OUTSIDE RECORDS SUMMARY | 2022-08-14 17:57 | XMS_ITS | Encounter Summary ---
:1965 Author Organization [facility] Address [address] [place] [address] Care Team Providers Name Role Phone Unavailable Primary Care Provider Unavailable Reason for Referral Outpatient (Routine) - Closed Specialty Diagnoses / Procedures Referred By Contact Refer red To Contact Neurology Diagnoses Stroke (HCC) Thrombosis Arterial (HCC) Aneurysm Cerebral Unruptured (HCC) Fernie Soriano M.D. [facility] [address] [place] [phone] Referral ID Status Reason Start Date Expiration Date Visits Requ ested Visits Authorized [id number] Closed 03/31/2019 03/30/2020 1 1 Reason for Visit Reason Comments Dizziness Evaluated in [place] with CT scan. Headache Encounter Details Date Type Department Care Team Description 03/29/2019 - Hospital Encounter [facility] Alfredo Rausch M.D., M.A. [address] [place] [address] Stroke (HCC) (Primary Dx); [facility] [address] [place] [phone] Transient Ischemic Attack; [facility], Nan Rios M.D. [address] [place] [phone] Thrombosis Arterial (HCC); [facility], Nicotine Dependence Cigarettes; Second floor Aneurysm Cerebral Unruptured ([facility]) [address] [place] [address] Social History Tobacco Use Types [...] you attend zoroastrianism or Patient refused 2021 jew services? Do [...] patient, follows with Dr. Estephanie Franz in [place], [place]. Primary Care Provider Phone Number: None [...] and PCP follow-up with Dr. Franz in [place], [place], scheduled for 04/02/2019. - Please be [...] 04/10/2019 2:15 PM Darlin Olmedo M.D. [facility] CITY[facility]bron RSJolanta Spec TEST [...] speech at the time. She presented to [facility], where MRI/MRA head showed multiple [...] was discharged on a weekend, our clinical permit review assistant will arrange for PCP follow-up and [...] speech at the time. She presented to [facility], where MRI/MRA head showed multiple [...] was discharged on a weekend, our clinical permit review assistant will arrange for PCP follow-up and INR checks on Tuesday. RECOMMENDATIONS: - Patient to continue enoxaparin 70 mg (1 mg/kg) BID bridge to warfarin with goal INR 2-3. Patient to receive INR checks and PCP follow-up with Dr. Franz in [place], [place] as soon as possible after discharge. [...] this after visit summary to your appointment(s). [place], [place] April 02, 2019 - Tuesday --12:30 PM - Hospital Follow-Up with Dr. Gold MD, Colleague of Juana Franz MD, primary care provider, at [facility] RECOMMENDATIONS: * April 02, 2019 at 9:30 AM [facility] INR Check * [facility] You may have outpatient appointments at [facility] that changed during your hospitalization. Refer to your [facility] Patient Visit Guide (PVG) for the most current schedule of appointments and detailed instructions of tests/procedures. Call [phone], if you did not receive an PVG or need to CANCEL any [facility] appointment(s). You were discharged from [...] are intact. There is no dysmetria on ikktjm-gl-yabi and cqet-il-vtbq. There are no abnormal or extraneous movements. [...] next week (to be arranged by clinical permit review assistant, in-basket message sent). Will also require [...] --Will arrange for PCP appt (Dr. Franz, [place], [place]) for INR monitoring 04/02 or earliest [...] page the neurology stroke/cerebrovascular disease service pager ([phone]) with any questions orconcerns. Kylie Rubio RRebekah. [...] are intact. There is no dysmetria on sszylx-dw-eueq and tyzs-gv-nfof. There are no abnormal or extraneous movements. [...] Findings discussed at 2:03 p.m with pager [phone] Additional Diagnostic Studies Ecg 12 Lead Result [...] page the neurology stroke/cerebrovascular disease service pager [phone]) with any questions orconcerns. documented in this [...] the day of presentation and came to [facility], although head CT did not demonstrate any [...] developed a headache approximately 45 min later. [place] room was tilting, not spinning, and had [...] dull and mild now. She presented to [facility], where MRI/MRA head showed multiple [...] are intact. There is no dysmetria on qeusyq-fm-oqdw and wdca-kb-dqub. There are no abnormal or extraneous movements. [...] Findings discussed at 2:03 p.m with pager [phone] Additional Diagnostic Studies ASSESSMENT / PLAN Ms. [...] Please page the stroke/cerebrovascular neurology service pager ([phone]) for any questions or concerns. STROKE DOCUMENTATION: [...] Prior Function / Occupational Profile Level of [place]: Independent with ADLs and functional transfers, Independent [...] Score: 24 Basic Mobility Standardized Score: 61.14 [facility] 0-100% Score: 0 % Basic Mobility [facility] Modifier: CH INTERPRETATION: Clinicians answer the [...] female who was seen at [facility] and is being evaluated for Tobacco Use [...] Prior Function / Occupational Profile Level of [place]: Independent with ADLs and functional transfers, Independent [...] be independent with home exercise resistive theraband ([place]) program for left shoulder and elbow (MET) OT Goal #3 Date: 03/30/19 @FLOW12([id number])@ Plan Patient agrees with the plan of [...] living independently in her own apartment in [place] until yesterday morning when she noted the [...] Ms. Mosquera was initially taken to the [facility] Facility where MRI/MRA (images which I reviewed in QREADS) revealed bila teral small areas of restricted diffusion in posterior distribution involving both the cerebellar and occipital lobes. The etiology was presumed embolic and she was transferred to [place] for further evaluation here. Upon arrival at [place], Ms. Mosquera was described as alert, in [...] has lived alone in an apartment in [place] for,I believe, 5 years. She is unemployed, [...] tone: Upper and lower extremities 0/0. Coordination: Ygyver-xc-waeh was 0/0. Satellite sign was symmetric. Cranial nerves II through XII: Extraocular movements were intact. Visual jhaveri were intact. Cuhr-lf-yvnobwij decreased hearing acuity bilaterally. Smile symmetric. 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 female who presents to the [facility] for evaluation of vertigo and [...] an Emergency Neurology consult note. Please page [phone] with any additional questions. I personally spent [...] called. Education completeand VS taken. Questions answered. aMkenzie Childs R.N. - 03/31/2019 4:02 AM CDT [...] CHIEF COMPLAINT/REASON FOR VISIT Dizziness (Evaluated in [place] with CT scan. ) and Headache HISTORY OF PRESENT ILLNESS 53-year-old female who presents from outside facility to [facility] ED with a chief concern of headache [...] She was transported from outside hospital to [facility] for further evaluation management by Neurology here. [...] do basic arithmetic No visual agnosia No etag-nx-rqgzv agnosia Dpsnxz-lh-nzlp normal Hpjy-nv-rnnf normal Skin: Skin is warm, dry, intact [...] to the emergency department by ambulance from [facility] for evaluation of headache and difficulty with balance. Patient states that she woke up this morning and felt like her body was drunk. She subsequently developed a headache. She was seen at the outside hospital and underwent neuro imaging, laboratory evaluation, EKG testing. She now presents [facility]. She is currently complaining of fatigue only. Neuro imaging at [place]: MRI head MRA demonstrates multiple foci of [...] speech at the time. She presented to [facility], where MRI/MRA head showed multiple [...] was discharged on a weekend, our clinical permit review assistant will arrange for PCP follow-up and INR checks on Tuesday. documented in this encounter Plan of Treatment Upcoming Encounters Date Type Specialty Care Team Description 09/01/2022 Clinical Communication Admitting/Central Scheduling 09/06/2022 Appointment Radiology Alfredo Herrera O.P.A.-C. [address] [place] [address] 09/06/2022 Office Visit Orthopedic Surgery Cyrus Polk M.D. [address] [place] [address] Scheduled Referrals Name Type Priority Associated Order Schedule Diagnoses Neurology - Outpatient Routine Stroke (HCC) Expected: Cerebrovascular consult Referral Thrombosis 02/2019 (clinic) Arterial (HCC) (Approximate), Aneurysm Cerebral Expires: Unruptured ([facility]) 03/31/2022 documented as of this encounter [...] - Routine 03/30/2019 5:32 Results for HOSPITAL MATERIAL YARD CLERK - PM CDT this proc edure MONITORED [...] the ventral aspect (series 6 image s [id number]). The lumen remains significantly irregular and there [...] well seen. The RADHA, MCA, a nd MUMPS DEVELOPER branches are unremarkable in appearance. Stable postoperative [...] the ventral aspect (series 6 image s [id number]). The lumen remains significantly irregular and there [...] well seen. The RADHA, MCA, a nd MUMPS DEVELOPER branches are unremarkable in appearance. Stable postoperative [...] Prothrombin Time (PT/INR) (03/31/2019 8:12 AM CDT) [facility] Method Time Signature Prothrombin 11.5 9.4 - 12.5 03/31/2019 [facility] Time, P sec 8:46 AM CDT LAB[facility]ATORIES - [facility] INR 1.0 0.9 - 1.1 03/31/2019 [facility] 8:46 AM CDT [facility] Comment: ----ADDITIONAL INFORMATION---- Standard intensity warfarin therapeutic [...] [facility] - [address] [facility] [address] [place] [address] [facility] CBC without Differential (03/31/2019 8:12 AM CDT) [facility] M-DAQ Method Time Signature Hemoglobin 12.9 11.6 - 03/31/2019 [facility] 15.0 g/dL 8:37 AM CDT [facility] - [facility] Hematocrit 39.6 35.5 - 03/31/2019 [facility] 44.9 % 8:37 AM CDT [facility] - [facility] Erythrocytes 4.06 3.92 - 03/31/2019 [facility] 5.13 8:37 AM CDT LABORATORIES - x10(12)/L [facility] MCV 97.5 78.2 - 03/31/2019 [facility] 97.9 fL 8:37 AM CDT [facility] RBC Distrib Width 13.2 12.2 - 03/31/2019 [facility] 16.1 % 8:37 AM CDT [facility] Platelet Count 256 157 - 371 03/31/2019 [facility] x10(9)/L 8:37 AM CDT [facility] - [facility] Leukocytes 5.3 3.4 - 9.6 03/31/2019 [facility] x10(9)/L 8:37 AM CDT [facility] - [facility] Specimen Anatomical Collection Method Collection Time Receive d Time (Source) Location / / Volume Laterality Blood (Blood, 03/31/2019 8:12 AM 03/31/20 19 8:31 Venous) CDT AM CDT Trent Ferrer M.D. LAB BLOOD ADD-ON Performing Organization Address City/State/ZIP Code Phon e Number [facility] - [address] [place], [place] [address] [facility] HOLTER MONITOR - HOSPITAL MATERIAL YARD CLERK - MONITORED IN HOSPITAL OR ED DISCHARGE (03/30/2019 5:32 PM CDT) [facility] gist Method Time Signature Recording Date [id number] HOLTER SENTINEL Analysis Date 20,190,510 HOLTER SENTINEL Max Heart Rate 125 bpm HOLTER SENTINEL Max Heart Rate HOLTER Time SENTINEL Min Heart Rate 46 bpm HOLTER SENTINEL Min Heart Rate [id number] HOLTER Time SENTINEL Mean Heart 71 bpm [...] count HOLTER Hour SENTINEL VE Max Per [id number] HOLTER Hour Time SENTINEL AF Count 0 count HOLTER SENTINEL SVT Runs 0 count HOLTER SENTINEL SVE Total 106 count HOLTER Beats SENTINEL SVE Percent 0 percent HOLTER Beats SENTINEL SVE Max Per 18 count HOLTER Hour SENTINEL SVE Max Per [id number] HOLTER Hour Time SENTINEL Specimen (Source) Anatomical [...] superior vena cava. Patent foramen ovale. ??No xlor-yc-mevks shunt at atrial level. ??Agitated saline injection(s) performed. ??Small axckh-ji-vlme shunt a t atrial level at rest and with Valsalva release. Pericardial effusion. ??PROCEDURE ??Max sesophageal echocardiogram performed at the request of the primary industrial service technician. ??Adult probe inserted without difficulty. ??Procedure performed [...] Sedation Narrator or other pertinent record in [facility] for additional procedure and sedation in formation. [...] superior vena cava. Patent foramen ovale. No pzti-pq-tdhek s ballesteros at atrial level. Agitated saline injection(s) performed. Small hvild-az-khft shunt at atrial level at rest and with Valsalva release. Pericardial effusion. PROCEDURE Transeso phageal echocardiogram performed at the request of the primary industrial service technician. Adult pr obe inserted without difficulty. Procedure [...] Sedation Narrator or other pertinent record in [facility] for additional procedure and sedation in formation. Transesophageal echocardiogram completed without complications. For the complete report, see the Order-L evel Documents below. See PDF For Result Trent Ferrer M.D. CV ECHO PROCEDURES Prothrombin Time (PT/INR) (03/30/2019 11:42 AM CDT) [facility] Method Time Signature Prothrombin 11.3 9.4 - 12.5 03/30/2019 [facility] Time, P sec 12:05 PM CDT [facility] - [facility] INR 1.0 0.9 - 1.1 03/30/2019 [facility] 12:05 PM CDT [facility] Comment: ----ADDITIONAL INFORMATION---- Standard intensity warfarin therapeutic range: 2.0 to 3.0 ?? High intensity warfarin therapeutic rang e: 2.5 to 3.5 Specimen Anatomical Collection Method Collection Time Receive d Time (Source) Location / / Volume Laterality Blood (Blood, 03/30/2019 11:42 03/30/2019 Venous) AM CDT 11:51 AM CDT Trent Ferrer M.D. LAB BLOOD ADD-ON Performing Organization Address City/[facility]/ZIP Code Phon e Number [facility] - [address] [place], [place] [address] [facility] ECG 12 Lead (03/30/2019 9:30 AM CDT) P athologist Signature Ventricular Rate 53 BPM MUSE ECG/Min CT Interval 150 ms MUSE QRSD Interval 84 ms MUSE QT Interval 452 ms MUSE QTC Interval 424 ms MUSE P [place] 7 degrees MUSE R [place] -11 degrees MUSE T Wave [place] 1 degrees MUSE Specimen Anatomical Collection Method [...] Vieyra M.D. ECG ORDERABLES Performing Organization Address City/[facility]/ZIP Code Phon e Number MUSE MUSE NA Basic Metabolic Panel (03/30/2019 6:21 AM CDT) Analysis Performed At Patho logist Time Signature Potassium, S 4.1 3.6 - 5.2 03/30/2019 [facility] mmol/L 7:41 AM CDT [facility] Sodium, S 141 135 - 145 03/30/2019 [facility] mmol/L 7:41 AM CDT [facility] Chloride, S 106 98 - 107 03/30/2019 [facility] mmol/L 7:41 AM CDT [facility] Bicarbonate, S 24 22 - 29 03/30/2019 [facility] mmol/L 7:41 AM CDT [facility] Anion Gap 11 7 - 15 03/30/2019 [facility] 7:41 AM T [facility] BUN (Blood Urea 14 6 - 21 03/30/2019 [facility] Nitrogen), S mg/dL 7:41 AM T [facility] Creatinine 0.73 0.59 - 03/30/2019 [facility] 1.04 mg/dL 7:41 AM T [facility] eGFR-Non >90 >=60 03/30/2019 [facility] Black/ mL/min/BSA 7:41 AM T LABORATORIES [facility] Comment: ----ADDITIONAL INFORMATION---- Estimated GFR calculated using the 2009 CKD_EPI creatinine equation. eGFR-Black/ >90 >=60 mL/min/BSA 03/30/2019 7:41 [facility] Comment: ----ADDITIONAL INFORMATION---- Estimated GFR calculated using the 2009 CKD_EPI creatinine equation. Calcium, Total, S 8.9 8.6 - 10.0 mg/dL 03/30/2019 7:41 AM [facility] Glucose, S 100 70 - 140 mg/dL 03/30/2019 7:41 AM [facility] Specimen Anatomical Collection Method Collection Time Receive d Time (Source) Location / / Volume Laterality Blood (Blood, 03/30/2019 6:21 AM 03/30/20 19 6:52 Venous) CDT AM CDT Trent Ferrer M.D. LAB BLOOD ADD-ON Performing Organization Address City/State/ZIP Code Phon e Number [facility] - [address] [place] [address] [facility] (ABNORMAL) CBC without Differential (03/30/2019 6:21 AM CDT) [facility] gist Method Time Signature Hemoglobin 12.5 11.6 - 03/30/2019 [facility] 15.0 g/dL 6:54 AM CDT [facility] - [facility] Hematocrit 37.9 35.5 - 03/30/2019 [facility] 44.9 % 6:54 AM CDT [facility] - [facility] Erythrocytes 3.87 (L) 3.92 - 03/30/2019 [facility] 5.13 6:54 AM CDT LABORATORIES - x10(12)/L [facility] MCV 97.9 78.2 - 03/30/2019 [facility] 97.9 fL 6:54 AM CDT [facility]IES [facility] RBC Distrib 13.5 12.2 - 03/30/2019 [facility] Width 16.1 % 6:54 AM CDT [facility] Platelet Count 245 157 - 371 03/30/2019 [facility] x10(9)/L 6:54 AM CDT [facility] - [facility] Leukocytes 4.1 3.4 - 9.6 03/30/2019 [facility] x10(9)/L 6:54 AM CDT [facility] Specimen Anatomical Collection Method Collection Time Receive d Time (Source) Location / / Volume Laterality Blood (Blood, 03/30/2019 6:21 AM 03/30/20 19 6:44 Venous) CDT AM CDT Trent Ferrer M.D. LAB BLOOD ADD-ON Performing Organization Address City/[facility]/ZIP Code Phon e Number [facility] - [address] [place] [address] [facility] Coagulation Factor II Activity Assay (03/30/2019 6:20 AM CDT) P athologist Signature Coag Factor II 93 75 - 145 % 03/30/2019 [facility] Assay, P 11:53 AM CDT [facility] Comment: ----ADDITIONAL INFORMATION---- This test has [...] [facility] - [address] [place], [place] [address] [facility] Protein S Antigen, Total (03/30/2019 6:20 AM CDT) athologist Signature Protein S Ag, 91 80 - 160 % 03/30/2019 [facility] Total, P 11:04 AM CDT [facility] Comment: ----ADDITIONAL INFORMATION---- This test has been modified from the [facility] instructions. Its performance characteri stics were determined [...] LAB BLOOD NON ADD-ON Performing Organization Address City/[facility] Phon e Number [facility] - [address] [place], [place] [address] [facility] Reptilase Time, Plasma (03/30/2019 6:20 AM CDT) athologist Signature Reptilase 17 14 - 23 03/30/2019 [facility] Time, P sec 9:49 AM CDT [facility] Comment: ----ADDITIONAL INFORMATION---- This test has been modified from the trail artr's instructions. Its performance characteri stics were determined [...] M.D. LAB BLOOD ADD-ON Performing Organization Address City/[facility]/ZIP Code Phon e Number [facility] - [address] [place], [place] [address] [facility] (ABNORMAL) APTT Mix 1:1 (03/30/2019 6:20 AM CDT) P athologist Signature APTT Mix 1:1 42 (H) 26 - 36 03/30/2019 [facility] sec 9:49 AM CDT [employer] [facility] Comment: ----ADDITIONAL INFORMATION---- This test has been [...] M.D. LAB BLOOD ADD-ON Performing Organization Address [facility] Phon e Number [facility] - [address] Heparin Anti-Xa Assay (03/30/2019 6:20 AM CDT) athologist Signature Heparin 0.38 IU/mL 03/30/2019 [facility] Anti-Xa, P 7:12 AM CDT [facility]IES [facility] Comment: UFH therapeutic range: ?? 0.30-0.70 IU/mL [...] LAB BLOOD NON ADD-ON Performing Organization Address [facility] Phon e Number [facility] [employer] - [address] Beta-2 Glycoprotein 1 Antibodies, IgG and IgM (03/30/2019 6:20 AM CDT) P athologist Signature Beta 2 GP1 Ab <9.4 <15.0 03/30/2019 [facility] IgG, S (Negative) 7:47 PM CDT [facility] U/mL [facility] Beta 2 GP1 Ab <9.4 <15.0 03/30/2019 [facility] IgM, S (Negative) 7:[address] U/mL [facility] Specimen Anatomical Collection Method Collection Time Receive d Time (Source) Location / / Volume Laterality Blood (Blood, 03/30/2019 6:20 AM 03/30/20 19 9:55 Venous) CDT AM CDT Trent Ferrer M.D. LAB BLOOD ADD-ON Performing Organization Address City/[facility]/ZIP Code Phon e Number [facility] [address] [place], [place] [address] [facility] Phospholipid (Cardiolipin) Antibodies, IgG and IgM (03/30/2019 6:20 AM CDT) P athologist Signature Phospholipid Ab <9.4 <15.0 03/30/2019 [facility] IgM, S (Negative) 3:[address] PM [address] [facility] Phospholipid Ab <9.4 <15.0 03/30/2019 [facility] IgG, S (Negative) 3:49 PM CDT [facility] Specimen Anatomical Collection Method Collection Time Receive d Time (Source) Location / / Volume Laterality Blood (Blood, 03/30/2019 6:20 AM 03/30/20 19 9:55 Venous) CDT AM CDT Trent Ferrer M.D. LAB BLOOD ADD-ON Performing Organization Address City/State/ZIP Code Phon e Number [facility] [address] [place], [place] [address] [facility] (ABNORMAL) Thrombophilia Profile (03/30/2019 6:20 AM CDT) [facility] Method Time Signature Prothrombin Time 10.9 10.3 - 03/30/2019 [facility] (PT), P 12.8 sec 9:35 AM CDT LABORATORIES [facility] INR 1.0 03/30/2019 [facility] 9:35 AM CDT [facility] Activated 57 (H) 26 - 36 03/30/2019 [facility] Partial sec 9:46 AM T LABORATORIES - Thrombopl Time, [facility] DRVVT Screen 0.7 0.0 - 1.1 03/30/2019 [facility] Ratio ratio 9:[address] [facility] Thrombin Time 73 (H) 15 - 23 03/30/2019 [facility] (Bovine), P sec 9:46 AM CDT [facility]ATORIES - [facility] Comment: ----ADDITIONAL INFORMATION---- This test has been modified from the trail ufacturer's instructions. Its performance characteri stics were determined by [facility] in a manner co nsistent with CLIA requirements. This test has not bee n cleared or approved by the U.S. Food and Drug Admin istration. Fibrinogen, P 276 200 - 430 mg/dL 03/30/2019 10:04 AM CDT [facility] Comment: ----ADDITIONAL INFORMATION---- This test has been modified from the trail ufacturer's instructions. Its performance characteri stics were determined by [facility] in a manner co nsistent with CLIA requirements. This test has not bee n cleared or approved by the U.S. Food and Drug Admin istration. Fibrinogen 0.26 0.00 - 0.50 03/30/2019 12:44 PM [facility] Equivalent Units mcg/mL [facility] CDT LABORATORIES - (FE) [facility] D-Dimer Units (DDU) 130 0 - 250 ng/mL 03/30/2019 12:44 PM [facility] D-Dimer T [facility] Soluble Fibrin <8 0.0 - 7.9 mcg/mL 03/30/2019 1:19 PM [facility] Monomer T LABORATORIES [facility] Comment: ----ADDITIONAL INFORMATION---- This test was developed and its performa nce characteristics determined by [facility] in a manner co nsistent with CLIA requirements. This test has not bee n cleared or approved by the U.S. Food and Drug Admin istration. Antithrombin Activity, 99 80 - 130 % 03/30/2019 10:05 AM [facility] P CDT LABORATORIES [facility] S Comment: ----ADDITIONAL INFORMATION---- This test has been modified from the trail [employer]'s instructions. Its performance characteri stics were determined by [facility] in a manner co nsistent with CLIA requirements. This test has not bee n cleared or approved by the U.S. Food and Drug Admin istration. Protein C Activity, P 131 70 - 150 % 03/30/2019 9:33 A M CDT [facility] Comment: ----ADDITIONAL INFORMATION---- This test has been modified from the trail [employer]'s instructions. Its performance characteri stics were determined by [facility] in a manner co nsistent with CLIA requirements. This test has not bee n cleared or approved by the U.S. Food and Drug Admin istration. Protein S Ag, Free, 59 (L) 65 - 160 % 03/30/2019 10:19 AM [facility] P CDT [facility] Comment: ----ADDITIONAL INFORMATION---- This test has been modified from the trail [employer] instructions. Its performance characteri stics were determined by [facility] in a manner co nsistent with CLIA requirements. This test has not bee n cleared or approved by the U.S. Food and Drug Admin istration. APCRV Ratio 3.0 >or=2.3 03/30/2019 10:11 [facility] AM CDT LABORATORIES [facility] Prothrombin [id number] Negative Negative 04/02/2019 5:19 [facility] Mutation, B PM CDT [facility] PTNT Reviewed By Lewis Moreno, 04/02/2019 5:19 [facility] MBBS PM CDT [facility] PTNT Interpretation This individual DOES NOT hav e the Prothrombin [id number] mutation. Although the 04/02/2019 5:19 [facility] Prothrombin [id number] mutation is absent, the chloe kang may have other genetic PM CDT LABORATORIES - and environmental risk factors for thrombosis. Alanna r genetic consultation [facility] and counseling of potentially affected family members [facility] testing. Comment: ----ADDITIONAL INFORMATION---- This test is a direct mutation analysis using PCR amplification, signal generation and release by cleavage of se quence specific alleles ([employer], [employer], [place], [place]). This test has been modified from the trail [employer]'s instructions. Its performance characteristics were determi jayesh by [facility] in a manner consistent with CLIA requirements. This test has not been cleared or approved by the U.S. Food and Drug Administration . Reviewed by: Milad Emerson M.D. 04/03/2019 1:35 PM [facility] CDT LABORATORIES - [facility] Interpretation ?Type of Study: ?? Thrombophilia Profile 04/03/2019 1:35 PM [facility] ?IMPRESSION: ??1) Decreased protein S free antigen, a cquired versus CDT LABORATORIES - congenital. ??See comments and suggest clinical correlation. [facility] ?2) Data are consistent with [...] patient does n ot have the prothrombin [id number] mutation. ?Separately performed and reported testing for beta-2 glycoprotein I and anticardiolipin antibodies (IgG and IgM isotypes) demonstrat ed normal results, providing no evidence of antiphospholipid antibodie s by these methodologies. Specimen Anatomical Collection Method Collection Time Receive d Time (Source) Location / / Volume Laterality Blood (Blood, 03/30/2019 6:20 AM 03/30/20 19 8:13 Venous) CDT AM CDT Narrative [facility] - 04/03/2019 1:37 PM CDT Specimen Information: Specimen ID: [id number] Specimen Type: Blood Specimen Collection Start Date: ??6:20 AM Specimen Received Date: 03/30/2019 ??8:13 AM Specimen ID: [id number] Specimen Type: Blood Specimen Collection Start Date: ??6:20 AM Specimen Received Date: 03/30/2019 ??7:17 AM Specimen ID: [id number] Specimen Type: Blood Specimen Collection Start Date: ??6:20 AM Specimen Received Date: 03/30/2019 ??7:17 AM Specimen ID: [id number] Specimen Type: Blood Specimen Collection Start Date: ??6:20 AM Specimen Received Date: 03/30/2019 ??7:17 AM Specimen ID: [id number] Specimen Type: Blood Specimen Collection Start Date: ??6:20 AM Specimen Received Date: 03/30/2019 ??7:17 AM Specimen ID: [id number] Specimen Type: Blood Specimen Collection Start Date: ??6:20 AM Specimen Received Date: 03/30/2019 ??7:17 AM Trent Ferrer M.D. LAB BLOOD NON ADD-ON Performing Organization Address City/State/ZIP Code Phon e Number [facility] - [address] [place], [place] [address] [facility] Heparin Anti-Xa Assay (03/29/2019 11:28 PM CDT) P athologist Signature Heparin 0.31 IU/mL 03/30/2019 [facility] Anti-Xa, P 12:05 AM CDT [facility] Comment: UFH therapeutic range: ?? 0.30-0.70 [...] LAB BLOOD NON ADD-ON Performing Organization Address City/[facility] Phon e Number [facility] - [address] [place] [address] [facility] Hemoglobin A1c (03/29/2019 6:05 PM CDT) Analysis Performed At [facility] logist Time Signature Hemoglobin A1c, 5.6 4.0 - 5.6 03/29/2019 [facility] B % 6:50 PM CDT [facility] Specimen Anatomical Collection Method Collection Time Receive d Time (Source) Location / / Volume Laterality Blood (Blood, 03/29/2019 6:05 PM 03/29/20 19 6:28 Venous) CDT PM CDT Trent Ferrer M.D. LAB BLOOD ADD-ON Performing Organization Address City/[facility] Phon e Number [facility] LABORATORIES - [address] [phone] [facility] (ABNORMAL) Lipid Panel (03/29/2019 6:05 PM CDT) Patholo gist Method Time Signature Cholesterol, 204 (H) mg/dL 03/29/2019 [facility] Total 7:09 PM CDT [facility] Comment: ----REFERENCE VALUE---- Desirable: < 200 Borderline high: 200 - 239 High: > or = 240 Triglycerides 104 mg/dL 03/29/2019 7:09 PM CDT [facility] Comment: ----REFERENCE VALUE---- Normal: <150 Borderline high: 150-199 High: 200-499 Very high: > or =500 Cholesterol, HDL, S 91 >=50 mg/dL 03/29/2019 7:09 PM CDT [facility] Calculated LDL 92 mg/dL 03/29/2019 7:09 PM CDT [facility] Comment: ----REFERENCE VALUE---- Desirable: <100 Above Desirable: 100-129 Borderline high: 130-159 High: 160-189 Very high: > or =190 Cholesterol, Non-HDL, 113 mg/dL 03/29/2019 7:0 9 PM CDT [facility] Comment: ----REFERENCE VALUE---- Desirable: <130 Above Desirable: 130-159 Borderline high: 160-189 High: 190-219 Very high: > or =220 Specimen Anatomical Collection Method Collection Time Receive d Time (Source) Location / / Volume Laterality Blood (Blood, 03/29/2019 6:05 PM 03/29/20 19 6:28 Venous) CDT PM CDT Trent Ferrer M.D. LAB BLOOD ADD-ON Performing Organization Address City/[facility]/ZIP Code Phon e Number [facility] - [address] S-TSH (Thyroid-Stimulating Hormone - Sensitive) (03/29/2019 6:05 PM CDT) athologist [facility] TSH, Sensitive 1.6 0.3 - 4.2 03/29/2019 [facility] mIU/L 7:09 PM CDT [facility] Specimen Anatomical Collection Method Collection Time Receive d Time (Source) Location / / Volume Laterality Blood (Blood, 03/29/2019 6:05 PM 03/29/20 19 6:28 Venous) CDT PM CDT Trent Ferrer M.D. LAB BLOOD ADD-ON Performing Organization Address City/[facility]/ZIP Code Phon e Number [facility] - [address] APTT (Activated Partial Thromboplastin Time) (03/29/2019 4:46 PM CDT) athologist Signature Activated 29 25 - 37 03/29/2019 [facility] Partial sec 5:01 PM CDT LABORATORIES - Thrombopl [facility] Specimen Anatomical Collection Method Collection Time Receive d Time (Source) Location / / Volume Laterality Blood (Blood, 03/29/2019 4:46 PM 03/29/20 4:52 Venous) CDT PM CDT Trent Ferrer M.D. LAB BLOOD ADD-ON Performing Organization Address City/State/ZIP Code Phon e Number [facility] LABORATORIES - [address] [place], [place] [address] [facility] CT Head Neck Angiogram [...] artery at C1 level concerning for thrombus. Stanislav underwood discussed at 2:03 p.m with pager [phone] Narrative 03/29/2019 4:34 PM CDT EXAM: CT [...] gs discussed at 2:03 p.m with pager [phone] Eliseo Mejias M.D. IMGeronimo CT PROCEDURES CT [...] gs discussed at 2:03 p.m with pager [phone] Narrative 03/29/2019 4:34 PM CDT EXAM: CT [...] artery at C1 level concerning for thrombus. Stanislav gs discussed at 2:03 p.m with pager [phone] Eliseo Mejias M.D. IMGeronimo CT PROCEDURES (ABNORMAL) CBC with Differential, Blood (03/29/2019 2:04 PM CDT) [facility] Method Time Signature Hemoglobin 12.4 11.6 - 03/29/2019 [facility] 15.0 g/dL 2:11 PM CDT LABORATORIES - [facility] Hematocrit 37.0 35.5 - 03/29/2019 [facility] 44.9 % 2:11 PM CDT LABORATORIES - [facility] Erythrocytes 3.79 (L) 3.92 - 03/29/2019 [facility] 5.13 2:11 PM CDT LABORATORIES - x10(12)/L [facility] MCV 97.6 78.2 - 03/29/2019 [facility] 97.9 fL 2:11 PM CDT LABORATORIES - [facility] RBC Distrib 13.3 12.2 - 03/29/2019 [facility] Width 16.1 % 2:11 PM CDT LABORATORIES - [facility] Platelet Count 238 157 - 371 03/29/2019 [facility] x10(9)/L 2:11 PM CDT LABORATORIES - [facility] Leukocytes 4.7 3.4 - 9.6 03/29/2019 [facility] x10(9)/L 2:11 PM CDT LABORATORIES - [facility] Neutrophils 2.33 1.56 - 03/29/2019 [facility] 6.45 2:11 PM CDT LABORATORIES - x10(9)/L [facility] Lymphocytes 1.74 0.95 - 03/29/2019 [facility] 3.07 2:11 PM CDT LABORATORIES - x10(9)/L [facility] Monocytes 0.32 0.26 - 03/29/2019 [facility] 0.81 2:11 PM CDT LABORATORIES - x10(9)/L [facility] Eosinophils 0.22 0.03 - 03/29/2019 [facility] 0.48 2:11 PM CDT LABORATORIES - x10(9)/L [facility] Basophils 0.04 0.01 - 03/29/2019 [facility] 0.08 2:11 PM CDT LABORATORIES - x10(9)/L [facility] Specimen Anatomical Collection Method Collection Time Receive d Time (Source) Location / / Volume Laterality Blood (Blood, 03/29/2019 2:04 PM 03/29/20 2:08 Venous) CDT PM CDT Eliseo Mejias M.D. LAB BLOOD ADD-ON Performing Organization Address City/State/ZIP Code Phon e Number [facility] LABORATORIES - [address] [place], [place] [address] [facility] Basic Metabolic Panel (03/29/2019 2:04 PM CDT) Analysis Performed At Patho logist Time Signature Potassium, P 4.0 3.6 - 5.2 03/29/2019 [facility] mmol/L 2:24 PM CDT LABORATORIES [facility] Sodium, P 142 135 - 145 03/29/2019 [facility] mmol/L 2:24 PM CDT LABORATORIES - [facility] Chloride, P 107 98 - 107 03/29/2019 [facility] mmol/L 2:24 PM CDT LABORATORIES - [facility] Bicarbonate, P 24 22 - 29 03/29/2019 [facility] mmol/L 2:24 PM CDT LABORATORIES [facility] Anion Gap, P 11 7 - 15 03/29/2019 [facility] 2:24 PM CDT LABORATORIES [facility] BUN (Blood Urea 17 6 - 21 03/29/2019 [facility] Nitrogen), P mg/dL 2:24 PM CDT LABORATORIES [facility] Creatinine 0.81 0.59 - 03/29/2019 [facility] 1.04 mg/dL 2:24 PM CDT LABORATORIES [facility] eGFR-Black/Afri >90 >=60 03/29/2019 [facility] can [place] mL/min/BSA 2:24 PM CDT LABORATORIES [facility] Comment: ----ADDITIONAL INFORMATION---- Estimated GFR calculated using the 2009 CKD_EPI creatinine equation. eGFR Non-Black/ 82 >=60 mL/min/BSA 03/29/2019 2:24 PM [facility] [place] CDT LABORATORIES [facility] Comment: ----ADDITIONAL INFORMATION---- Estimated GFR calculated using the 2009 CKD_EPI creatinine equation. Calcium, Total, P 8.7 8.6 - 10.0 mg/dL 03/29/2019 2:24 PM [facility] CDT LABORATORIES - [facility] Glucose, P 101 70 - 140 mg/dL 03/29/2019 2:24 PM [facility] CDT LABORATORIES - [facility] Specimen Anatomical Collection Method Collection Time Receive d Time (Source) Location / / Volume Laterality Blood (Blood, 03/29/2019 2:04 PM 03/29/20 2:08 Venous) CDT PM CDT Eliseo Mejias M.D. LAB BLOOD ADD-ON Performing Organization Address City/State/ZIP Code Phon e Number [facility] LABORATORIES - [address] [place] [address] [facility] documented in this encounter [...] 2 times daily PRN, constipation, Starting on Clementine 03/29/19 at 1735, Suppository is the preference. Swallow w hole. Do NOT crush, chew, or split tablet. bisacodyl suppository 10 mg (DULCOLAX) 10 mg, rectal, 2 times daily PRN, constipation, Starti ng on Clementine 03/29/19 at 1735, Suppository is the preference. cholecalciferol [...] Post Medications (Hazardous/Low Fluid Volume), Starting on Tue03/29/19 [...] or score 7-10 of 10, Starting on Tue03/29/19 at 1731 Given 03/31/2019 3:34 AM CDT [...] mL 1-100 mL, intravenous, Once, On Clementine 03/29/19 at 1527, For 1 dose, Imaging Protocol [...] Every 12 hours scheduled, First dose on Clementine 03/29/19 at 2100, Peripheral Intravenous Catheter and Rapid [...] mg (COUMADIN) 5 mg, oral, Once, On 03/31/19 at 1700, For 1 dose zonisamide capsule [...] (TYLENOL) 1655 (Given - Provider: Marlene Irwin RBetsy)2108 (Given - Provider: Marlene Irwin RBetsy) 0529 (Given - Provider: Makenzie Childs RBrittonNBritton)1339 (Given - Provider: Sofie Sutton ReBtsy) 1,000 mg, oral, Every 8 hours scheduled, First dose on Tue 9 at 1600 acetaminophen tablet 650 mg (TYLENOL) (CANCELED) 1849 (Given - Provider: Steven Carrillo RBrittonNBritton) 0208 (Given - Provider: Makenzie Childs R Betsy)0917 (Given - Provider: Julieth Whitt RBrittonNBritton) 650 mg, oral, Every 8 hours, First dose on Clementine 03/29/19 at 1800 atorvastatin tablet 40 mg (LIPITOR) 2107 (Given - Provider: Marlene Irwin R.N.) 40 [...] Units (VITAMIN D3) 0859 (Given - Provider: Sharifa MoyerN.) 0854 (Given - Provider: Christiano Gan) 10,000 Units, oral, Daily, First dose on Tue03/30/19 at 0900, cholecalciferol (vitamin D3) orderable was interchanged for cholecalciferol (vitamin D3) tablet/capsule cyanocobalamin tablet 2,000 mcg (VITAMIN B12) (CANCELED) 0859 (Given - Provider: Julieth Whitt RBrittonNBritton) 2,000 mcg, oral, Daily, First dose on Tue03/30/19 at 0900 cyanocobalamin tablet 5,000 mcg (VITAMIN B12) 0854 (Given - Provider: Sofie Sutton R.N.) 5,000 mcg, oral, Daily, First dose (afte r last modification) on Tue03/31/19 at 0900 cycloSPORINE 0.05 % ophthalmic emulsion 1 drop (RESTASIS) 210 (Given - Provider: Marlene Irwin R.N.) 0855 (Given - Provider: Christiano GanNBritton) 1 drop, both eyes, 2 times daily, First dose (after last modification) on Tue03/30/19 at 2100 enoxaparin injection 70 mg (LOVENOX) 210 (Given - Provider: Marlene Irwin RBrittonN.) 0900 (Given - Provider: Christiano GanNBritton) 70 mg, subcutaneous, 2 times daily, Firs t dose on Tue03/30/19 at 2100, Please do teaching as planning to discharge on enoxaparin bridge to warfarin FLUoxetine capsule 60 mg (PROzac) 0858 ( Given - Provider: Julieth Velasquez RBrittonN.) 0855 (Given - Provider: Christiano Gan) 60 mg, oral, Daily, First dose on 02/13 at 0900, FLUoxetine orderable was interchanged for FLUoxetine tablet/capsule fluticasone furoate-vilanterol 200-25 mc g/act inhaler 1 puff (BREO ELLIPTA DISKUS) 0858 (Not Given - Provider: Julieth Whitt RBetsy - Reason: Patient/family refused) 0855 (Given - Provider: Christiano Gan) 1 puff, inhalation, Daily (RT), First do se on Tue03/30/19 at 0800, fluticasone/vilanterol diskus 200/25 mcg was interchanged for Budesonide/Formoterol fluticasone propionate 50 mcg/actuation nasal spray 2 spray (FLONASE) 0859 (Given - Provider: Julieth Whitt RBetsy) 0855 (Given - Provider: Sofie Sutton R.N.) 2 spray, each nostril, Daily, First dose on Tue03/30/19 at 0900 folic acid tablet 800 mcg 0859 (Given - Provider : Julieth Whitt RBetsy) 0854 (Given - Provider: Sofie Sutton R.N.) 800 mcg, oral, Daily, First dose on Tue03/30/19 at 0900 furosemide tablet 40 mg (LASIX) (CANCELED) 0858 (Given - Provider: Julieth Whitt RBrittonNBritton) 40 mg, oral, Daily, First dose on Tue03/30/19 at 0900 furosemide tablet 40 mg (LASIX) 1655 (Given - Pr ovider: Marlene Irwin RBrittonNBritton) 0855 (Given - Provider: Sofie Sutton RBetsy) 40 mg, oral, 2 times daily, First dose ( after last modification) on Tue03/30/19 at 1700 ipratropium-albuterol 0.5-2.5 mg/3 mL ne bulizer solution 3 mL (DUO-NEB) (CANCELED) 2019 (Not Given - Provider: Makenzie collado RBetsy - Reason: Patient/family refused) 0906 (Given - Provider: Julieth Whitt RBrittonNBritton) 3 mL, nebulization, 2 times daily, First dose on Tue03/29/19 at 2 100 lamoTRIgine tablet 200 mg (LaMICtal) 2020 (Given - Pro vider: Makenzie Childs R.N.) 0859 (Given - Provider: Julieth Velasquez R.N.)2107 (Given - Provider: Marlene Irwin R.N.) 0854 (Given - Provider: Christiano Gan) 200 mg, oral, 2 times daily, First dose on Clementine 03/29/19 at 2100 loratadine tablet 10 mg (CLARITIN) [...] 0900 (Not Given - Provider: Sofie valentine R.N. - Reason: Patient/family refused) 17 g, oral, Daily, First dose on 03/30 at 0900, 17 g = 1 heaping Tablespoon. Dissolve in 240 mLs (8 ounces) of water prior to giving. Avoid mixing with starch-based thickened liquids. potassium chloride ER tablet 20 mEq (KLORCON/K-TAB) 0859 (Given - Provider: Julieth Whitt RRebekah.) 0855 (Given - Provider: Christiano Gan) 20 mEq, oral, Daily with breakfast, Firs t dose on Tue03/30/19 at 0800, potassium chloride orderable was interchanged for potassium chloride tablet/capsule Swallow whole. Do NOT crush, chew, or split tablet. pregabalin capsule 150 mg (LYRICA) (CANCELED) 2020 (Gi saeid - Provider: Makenzie Childs RBrittonN.) 0858 (Given - Provider: Julieth Whitt RBrittonN.) 150 mg, oral, 2 times daily, First dose on Clementine 03/29/19 at 2100 pregabalin capsule 150 mg (LYRICA) 0855 (Given - Provider: Sofie Sutton RBrittonN.) 150 mg, oral, Daily, First dose (after [...] ED) 1527 (Given - Provider: Princess Atkins R.N.) 1-100 mL, intravenous, Once, On Clementine at 1527, For 1 dose, Imaging Protocol Orders sodium chloride 0.9 % injection 3 mL 2024 (Given - Pro vider: Makenzei Childs R.N.) 0914 (Not Given - Provider: Julieth Thopmson R.N. - Reason: Other - Comment: continuous infusion is running)2100 (Given - Provider: Marlene Irwin R.N.) 0900 (Given - Provider: Christiano Gan) 3 mL, intravenous, Every 12 hours schedu led, First dose on Clementine 03/29/19 at 2100, Peripheral Intravenous Catheter and Rapid [...] (COMPLETED) 1655 (Given - Provider: Marlene Irwin RBetsy) 5 mg, oral, Once, On Tue03/30/19 at [...] Marlene Irwin R.N.) 0854 (Given - Provider: Sofie Sutton R BrittonNBritton) 300 mg, oral, 2 times daily, First [...] instead.) 0730 (Handoff - Provider: Julieth Whitt R.N.)2104 (Stopped - Provider: Marlene Irwin R.N.) 0-40 Units/kg/hr ? 72.6 kg Dosing weight (0-29.04 mL/hr), intravenous, Continuous, Starting on Clementine 03/29/19 at 1630, For 1 day 5 hours, Dose will be adjusted based on lab results and titrated per heparin 1906 (Handoff - Provider: Jonny CarsonS.Milad, R.N.) weight based nomogram. PLEASE DISCONTIN UE [...] mg (BENADRYL) 2225 (Given - Provider: Marlene Irwin, R.N.) 25 mg, oral, Bedtime PRN, sleep, Starting on Tue03/29/19 at 1727 docusate sodium 283 mg/5 mL enema 1 enema (ENEMEEZ) 1 enema, rectal, 2 times daily PRN, cons tipation, Starting Tue03/29/19 at 1735, If no bowel movement within 24 hours of starting bisacodyl fentaNYL injection (SUBLIMAZE) (COMPLETED) 1532 (Given - Provider: Ana Rosa Gordon, R.N.)1534 (Given - Provider: Ana Rosa Gordon R.N.)1538 (Given - Provider: Ana Rosa Gordon R.N.)1554 [...] (LMX) 1 application, topical, [address] N, mild pain or score 1-3 of [...] (CANCELED) 1321 (Given - Provider: Julieth Whitt R.NBritton) 2 mg, oral, 4 times daily PRN, diarrhea, Starting on Tue03/30/19 at 1143 metoclopramide tablet 10 mg (REGLAN) 165 5 (Given - Provider: Marlene Irwin RBrittonNBritton) 10 mg, oral, 3 times daily PRN, nausea, Starting on Tue03/30/19 a t 1041 midazolam (PF) injection (VERSED) (COMPLETED) 1532 (Given - Provider: Sharifa VazN.)1534 (Given - Provider: Sharifa VazN.)1537 (Given - Provider: Christiano Vaz.N.)1540 (Given - Provider: Christiano Vaz.German.)1554 (Given - Provider: Ana Rosa Gordon R.N.) [...] (NICOTROL) 0956 (Given - Provider: Sofie Sutton RBetsy) 1 puff, inhalation, As needed, smoking c [...] (ROXICODONE) 2345 (Given - Pr ovider: Makenzie Childs R.N.) 0638 (Given - Provider: Makenzie Childs R .N.)1315 (Given - Provider: Julieth Whitt R.N.)2133 (Given - Provider: Marlene Irwin R.N.) 0334 (Given - Provider: Christiano Mcdonough.N.)1236 (Given - Provider: Jerica Keller R.NBritton) 5 mg, oral, Every 6 hours PRN, [...] 1728 (Given - Pro vider: Steven Carrillo R.N.) 3 mL, intravenous, As needed, line [...] 1322 ( Given - Provider: Julieth Velasquez R.N.)2225 (Given - Provider: Marlene Irwin R.N.) 1236 (Given - Provider: Jerica Keller RBrittonN.)1339 (Not Given - Provider: Sofie Sutton RRebekah. - Reason: Other - Comment: See previous [...]
--- OUTSIDE RECORDS SUMMARY | 2022-08-14 17:57 | XMS_ITS | Encounter Summary ---
:1965 Author Organization [facility] Address [address] [place] [address] Care Team Providers Name Role Phone Unavailable Primary Care Provider Unavailable Reason for Visit Reason Onset Date Comments Telephone call 04/24/2019 [place] Encounter Details Date Type Department Care Team Description 04/24/2019 Clinical Communication Department of [place], Tele phone call Neurology in Nan Bose M.D. (Blanca) [place], [facility] [place], [place] [address] [place] [address] [place], [place] [phone] [address] (Work) [phone] Social History Tobacco Use Types Packs/Day Years [...] The patient contacted Dr. Henry's office at [facility] for a PFO closure. Depending on your answer would decide if the patient was a candidate for PFO closure. They read your 04/04/18 hospital summary in [facility], but the answer is unclear. Their fax is [phone]. thanks documented in this encounter Plan of Treatment Upcoming Encounters Date Type Specialty Care Team Description 09/01/2022 Clinical Communication Admitting/Central Scheduling 09/06/2022 Appointment Radiology Alfredo Herrera O.P.A.-C. [address] [place] [address] 09/06/2022 Office Visit Orthopedic Surgery Cyrus Polk M.D. [address] [place] [address] documented as of this encounter Visit Diagnoses Not on filedocumented in this encounter Additional Health Concerns Assessment Noted Time PHQ-9 Depression Total Score: 5 04/05/2019 8:00 AM CDT documented as of this encounter
--- OUTSIDE RECORDS SUMMARY | 2022-08-14 17:58 | XMS_ITS | Encounter Summary ---
:1965 Author Organization [facility] Address [address] [place] [address] Care Team Providers Name Role Phone Unavailable [...] you attend latter-day or Patient refused 2021 sabianist services? Do [...] Appointment Radiology Alfredo Herrera O.P.A.-C. [address] [place] [address] 09/06/2022 Office Visit Orthopedic Surgery Cyrus Polk M.D. [address] [place] [address] documented as of this encounter Visit Diagnoses Not on filedocumented in this encounter
--- OUTSIDE RECORDS SUMMARY | 2022-08-14 17:58 | XMS_ITS | Encounter Summary ---
:1965 Author Organization [facility] Address [address] [place] [address] Care Team Providers Name Role Phone Unavailable [...] you attend yarsanism or Patient refused 2021 rastafarian services? Do [...] Appointment Radiology Alfredo Herrera O.P.A.-C. [address] [place] [address] 09/06/2022 Office Visit Orthopedic Surgery Cyrus Polk M.D. [address] [place] [address] documented as of this encounter Procedures Procedure Name Priority Date/Time Associated Comments Diagnosis [place] ESOPHAGRAM SINGLE Routine 08/24/2007 10:57 AM Results for this CONTRAST MST procedure are i n the results section. documented in this encounter Results [place] Esophagram (08/24/2007 10:57 AM [facility]) Anatomical Region Laterality Modality Gastro Intestinal, Abdominal RST LOS N/A Rad iographic Imaging Specimen (Source) Anatomical Collection Method Collection Time Re ceived Time Location / / Volume Laterality 08/24/2007 10:57 AM MST Narrative 08/24/2007 11:41 AM [facility] Indications: ?STATUS POST GASTRIC BYPASS ORIGINAL [...]
--- OUTSIDE RECORDS SUMMARY | 2022-08-14 17:58 | XMS_ITS | Encounter Summary ---
:1965 Author Organization [facility] Address [address] [place] [address] Care Team Providers Name Role Phone Unavailable Primary Care Provider Unavailable Encounter Details Date Type Department Care Team Description 09/25/2015 Hospital Encounter HX [facility] PMTR Hernesto Watson M.D. [address], [address] [place] [address] (Wo rk) Social History Tobacco [...] you attend buddhist or Patient refused 2021 judaism services? Do [...] KUNZ LPN On: 09/25/2015 03:38 PM Source: [facility] POWERCHART Document Id: [id number] documented in this encounter Miscellaneous Notes Telephone Encounter - Conversion, Historical Provider Ser - 05/11/2017 11:32 AM CDT *Phone Message/Dr. Watson Document Contains Addenda Addendum by IVY BENITEZ on May 11, 2017 13:27:22 CDT From: IVY BENITEZ ( [place] Order Processing Specialist) To: Physical Medicine and Rehabilitation Staff; Sent: 05/11/2017 13:27:22 CDT Subject: RE: *Phone Message/Dr. Watson Left message on patients phone regarding this appointment. Addendum by NIKKIE GANDHI LPN on May 11, 2017 12:57:21 CDT From: NIKKIE GANDHI LPN ( Physical Medicine and Rehabilitation Staff) To: [place] Order Processing Specialist; Sent: 05/11/2017 12:57:21 CDT Subject: RE: *Phone Message/Dr. Watson 27th noon, please reschedule. From: IVY BENITEZ ( [place] Order Processing Specialist) To: Physical Medicine and Rehabilitation Staff; Sent: [...] come today, she would like [facility] Romero wanted her to have it done. Please call her back at [phone] to advise. Advice/Action: Source used: ( ) [...] back cell phone number ( ) Source: [facility] [employer] Document Id: [id number] Miscellaneous - Nikkie Gandhi L.P.N. - 05/04/2017 4:19 PM CDT *General Message Document Contains Addenda Addendum by ISIDRO HI on May 04, 2017 16:42:57 CDT From: ISIDRO HI ( [place] Order Processing Specialist) To: Physical Medicine and Rehabilitation Staff; Sent: 05/04/2017 16:42:57 CDT Subject: RE: *General Message Called patient and scheduled as requested. From: NIKKIE GANDHI LPN ( Physical Medicine and Rehabilitation Staff) To: [place] Order Processing Specialist; Sent: 05/04/2017 16:19:56 CDT Subject: *General Message Please call patient to schedule for bilateral upper extremity EMG. 05/11/17 at 11:45 am. 1 hour Source: [facility] [employer] Document Id: [id number] Electronically signed by Avinash [facility] Ap Processor [id number] at 06/01/2017 1:18 AM CDT documented in this encounter Plan of Treatment Upcoming Encounters Date Type Specialty Care Team Description 09/01/2022 Clinical Communication Admitting/Central Scheduling 09/06/2022 Appointment Radiology Alfredo Herrera O.P.A.-C. [address] [place] [address] 09/06/2022 Office Visit Orthopedic Surgery Cyrus Polk M.D. [address] [place] [address] documented as of this encounter Visit Diagnoses Not on filedocumented in this encounter
--- OUTSIDE RECORDS SUMMARY | 2022-08-14 17:58 | XMS_ITS | Encounter Summary ---
:1965 Author Organization [facility] Address [address] [place] [address] Care Team Providers Name Role Phone Unavailable [...] Appointment Radiology Alfredo Herrera O.P.A.-C. [address] [place] [address] 09/06/2022 Office Visit Orthopedic Surgery Cyrus Polk M.D. [address] [place] [address] documented as of this encounter Visit Diagnoses Not on filedocumented in this encounter
--- OUTSIDE RECORDS SUMMARY | 2022-08-14 17:58 | XMS_ITS | Encounter Summary ---
:1965 Author Organization [facility] Address [address] [place] [address] Care Team Providers Name Role Phone Unavailable [...] Appointment Radiology Alfredo Herrera O.P.A.-C. [address] [place] [address] 09/06/2022 Office Visit Orthopedic Surgery Cyrus Polk M.D. [address] [place] [address] documented as of this encounter Procedures Procedure [...] 4:56 PM MST Narrative 07/06/2008 5:07 PM [facility] Indications: ?PNE PATHWAY CALL [id number] IF POS. ??TECHNOTE: NIPPLE PIERCINGS LUNG ARTIFACT. [...] from the original. Indications: PNE PATHWAY CALL [id number] IF P OS. TECHNOTE: NIPPLE PIERCINGS LUNG [...] 06-Jul-2008 17:07 Tamir NIELSON DIAGNOSTIC IMAGING PROCE ZULEYKA documented in this encounter Visit Diagnoses Not on filedocumented in this encounter
--- OUTSIDE RECORDS SUMMARY | 2022-08-14 17:58 | XMS_ITS | Encounter Summary ---
:1965 Author Organization [facility] Address [address] [place] [address] Care Team Providers Name Role Phone Unavailable [...] you attend adventist or Patient refused 2021 mu-ism services? Do [...] Appointment Radiology Alfredo Herrera O.P.A.-C. [address] [place] [address] 09/06/2022 Office Visit Orthopedic Surgery Cyrus Polk M.D. [address] [place] [address] documented as of this encounter Visit Diagnoses Not on filedocumented in this encounter
--- OUTSIDE RECORDS SUMMARY | 2022-08-14 17:58 | XMS_ITS | Encounter Summary ---
:[address] [facility] Address [address] [place] [address] Care Team Providers Name Role Phone Unavailable [...] you attend baptist or Patient refused 2021 confucianism services? Do [...] Appointment Radiology Alfredo Herrera O.P.A.-C. [address] [place] [address] 09/06/2022 Office Visit Orthopedic Surgery Cyrus Polk M.D. [address] [place] [address] documented as of this encounter Visit Diagnoses Not on filedocumented in this encounter
--- OUTSIDE RECORDS SUMMARY | 2022-08-14 17:58 | XMS_ITS | Encounter Summary ---
:1965 Author Organization [facility] Address [address] [place] [address] Care Team Providers Name Role Phone Unavailable [...] you attend taoist or Patient refused 2021 mormonism services? Do [...] Appointment Radiology Alfredo Herrera O.P.A.-C. [address] [place] [address] 09/06/2022 Office Visit Orthopedic Surgery Cyrus Polk M.D. [address] [place] [address] documented as of this encounter Procedures Procedure [...] 2:55 PM MST Indications: ?CP PATHWAY CALL [id number] IF POS ORIGINAL REPORT - 24-Jul-2009 14:55:00 [...] from the original. Indications: CP PATHWAY CALL [id number] IF PO S ORIGINAL REPORT - 24-Jul-2009 14:55:00 ED Chest PA & Lateral: Dorsal column stimulator in place. The c hest is otherwise negative. This report has been electronically sign ed by Elmo Cabrera MD on Jul 24 2009 2:54PM. Electronically signed by: Mamta Cabrera M.D. 24-Jul-2009 14:55 Norman Goldsmith M.D. IMGeronimo DIAGNOSTIC IMAGING PROCE DURES documented in this encounter Visit Diagnoses Not on filedocumented in this encounter
--- OUTSIDE RECORDS SUMMARY | 2022-08-14 17:58 | XMS_ITS | Encounter Summary ---
:1965 Author Organization [facility] Address [address] [place] [address] Care Team Providers Name Role Phone Unavailable [...] you attend mosque or Patient refused 2021 religion services? Do [...] Appointment Radiology Alfredo Herrera O.P.A.-C. [address] [place] [address] 09/06/2022 Office Visit Orthopedic Surgery Cyrus Polk M.D. [address] [place] [address] documented as of this encounter Procedures Procedure Name Priority Date/Time Associated Diagnosis Comme nts DX CHEST AP OR PA Routine 08/18/2008 9:44 PM Resu lts for this AND LATERAL 2 VIEWS MST procedur e are in the results section. documented in this encounter Results DX Chest AP or PA and Lateral 2 Views (08/18/2008 9:44 PM [facility]) Anatomical Region Laterality Modality Chest, Thoracic RST LOS N/A Radiographic Ix ging Specimen (Source) Anatomical Collection Method Collection Time Re ceived Time Location / / Volume Laterality 08/18/2008 9:44 PM MST Narrative 08/18/2008 9:57 PM [facility] Indications: ?PNE PATHWAY CALL IF POS - pt unable to remove [...] from the original. Indications: PNE PATHWAY CALL IF P OS - pt unable to [...]
--- OUTSIDE RECORDS SUMMARY | 2022-08-14 17:58 | XMS_ITS | Encounter Summary ---
:[address] [facility] Address [address] [place] [address] Care Team Providers Name Role Phone Unavailable [...] you attend alevism or Patient refused 2021 mu-ism services? Do [...] Appointment Radiology Alfredo Herrera O.P.A.-C. [address] [place] [address] 09/06/2022 Office Visit Orthopedic Surgery Cyrus Polk M.D. [address] [place] [address] documented as of this encounter Procedures Procedure [...] Pelvis with IV Contrast (09/02/2007 1:17 AM [facility]) Anatomical Region Laterality Modality Pelvis, Abdominal RST LOS N/A Computed Tomog chato Specimen (Source) Anatomical Collection Method Collection Time Re ceived Time Location / / Volume Laterality 09/02/2007 1:17 AM [facility] Addenda Addendum by Elmo Cabrera M.D. on 03/2007 11:40 PM [facility] APPENDED REPORT - 02-Sep-2007 01 :40:00 CT Abdomen w/ Contrast CT Pelvis W Contrast Appended to link all pertinent exams to report. ? Electronically signed by: ?? Mamta Cabrera M.D. 02-Sep-2007 01:40 Narrative 09/02/2007 1:40 AM [facility] Indications: ?R/O ABCESS, POSTOP ORIGINAL REPORT [...] different from the original. Indications: R/O SONAL, POSTHERMILA ORIGINAL REPORT - 02-Sep-2007 01:39:00 CT Abdomen [...] Abdomen with IV Contrast (09/02/2007 1:17 AM [facility]) Anatomical Region Laterality Modality Abdomen, Abdominal RST LOS N/A Computed Tacos graphy Specimen (Source) Anatomical Collection Method Collection Time Re ceived Time Location / / Volume Laterality 09/02/2007 1:17 AM [facility] Addenda Addendum by Elmo Cabrera M.D. on 03/2007 11:40 PM [facility] APPENDED REPORT - 02-Sep-2007 01 :40:00 CT Abdomen w/ Contrast CT Pelvis W Contrast Appended to link all pertinent exams to report. ? Electronically signed by: ?? Mamta Cabrera M.D. 02-Sep-2007 01:40 Narrative 09/02/2007 1:40 AM [facility] Indications: ?R/O ABCESS, POSTOP ORIGINAL REPORT [...] by Elmo Cabrera MD on Aug?2006 ??1:39AM. ?? This report has been electronically [...] Sep 02 2007 1:39AM. Electronically signed by: Mamat Cabrera M.D. 02-Sep-2007 01:[address] PROCEDURES documented in this encounter Visit Diagnoses Not on filedocumented in this encounter
--- OUTSIDE RECORDS SUMMARY | 2022-08-14 17:58 | XMS_ITS | Encounter Summary ---
:1965 Author Organization [facility] Address [address] [place] [address] Care Team Providers Name Role Phone Unavailable Primary Care Provider Unavailable Encounter Details Date Type Department Care Team Description 06/21/2017 Hospital Encounter HX [facility] PMTR Hernesto Watson M.D. 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 Romero. REFERRED FOR Ms. [...] On: 06/21/2017 03:10 PM Source: [facility] MHSDOLBEYNONRADSYS Document Id: [id number] documented in this encounter Miscellaneous Notes Miscellaneous - Sergio Watson, M.D. - 06/21/2017 2:19 PM CDT Ambulatory Discharge Medication List [address] [id number] Visit Information Name: KAYLIN BENDER [facility] Number: [id number] Current Date: 06/21/2017 14:19:38 Attending [...] On:21-JUN-2017 14:19:21 Additional Information: Source: [facility] POWERCHART Document Id: [id number] Reema - Sergio Watson M.D. - 06/21/2017 2:19 PM CDT Ambulatory Patient Summary [address] [id number] Visit Information Name: KAYLIN BENDER [facility] Number: [id number] Current Date: 06/21/2017 14:19:38 Physicians [...] if you dont have one. Go to [email or web address] and click on Create Your Account. Then, follow the directions to complete the online form. Youll be asked for your [facility] number which you can find at the top of this document. Your Goals/Additional instructions: Source: [facility] POWERCHART Document Id: [id number] Miscellaneous - Ayla Mcmanus, L.P.N. 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 Intake/History Entered On: 06/21/2017 13:26 CDT Performed On: 06/21/2017 13:25 CDT by MARIETTA, AYLA J ASSISTANT CHIEF NURSING OFFICER Intake Systolic Blood Pressure : 124 mmHg Diastolic Blood Pressure : 62 mmHg NIBP Mean : 83 mmHg BP Location : Left upper extremity Blood Pressure Cuff Size : Regular Actual Weight : 70.55 kg(Converted to: 155 lb 9 oz) Dosing Weight Clinic : 70.55 kg AYLA MCMANUS LPN - 06/21/2017 13:25 CDT General Info Information Given By : Patient Languages : Comoran Is Patient Female and 13-50 no hysterectomy [...] MCMANUS LPN - 06/21/2017 13:25 CDT Source: [employer] Document Id: [id number] documented in this encounter Plan of Treatment Upcoming Encounters Date Type Specialty Care Team Description 09/01/2022 Clinical Communication Admitting/Central Scheduling 09/06/2022 Appointment Radiology Alfredo Herrera O.P.A.-C. [address] [place] [address] 09/06/2022 Office Visit Orthopedic Surgery Cyrus Polk M.D. [address] [place] [address] documented as of this encounter Visit Diagnoses Not on filedocumented in this encounter
--- OUTSIDE RECORDS SUMMARY | 2022-08-14 17:58 | XMS_ITS | Encounter Summary ---
:1965 Author Organization [facility] Address [address] [place] [address] Care Team Providers Name Role Phone Unavailable Primary Care Provider Unavailable Encounter Details Date Type Department Care Team Description 01/15/2010 - Hospital Encounter HX ARZ NO MAPPING Leonides Du, 01/16/2010 Lilian [address] [place] [address] Social History Tobacco Use Types [...] you attend temple or Patient refused 2021 restorationism services? Do [...] Appointment Radiology Alfredo Herrera O.P.A.-C. [address] [place] [address] 09/06/2022 Office Visit Orthopedic Surgery Cyrus Polk M.D. [address] [place] [address] documented as of this encounter Procedures Procedure Name Priority Date/Time Associated Comments Diagnosis FL ESOPHAGRAM SINGLE Routine 01/15/2010 9:36 PM R esults for this CONTRAST MST procedure are i n the results section. documented in this encounter Results [place] Esophagram (01/15/2010 9:[address] [facility]) Anatomical Region Laterality Modality Gastro Intestinal, Abdominal RST LOS N/A Rad iographic Imaging Specimen (Source) Anatomical Collection Method Collection Time Re ceived Time Location / / Volume Laterality 01/15/2010 9:36 PM MST Narrative 01/15/2010 9:43 PM MST Indications: ?STATUS POST GASTRIC BYPASS ORIGINAL REPORT [...]
--- OUTSIDE RECORDS SUMMARY | 2022-08-14 17:58 | XMS_ITS | Encounter Summary ---
:1965 Author Organization [facility] Address [address] [place] [address] Care Team Providers Name Role Phone Unavailable [...] you attend taoism or Patient refused 2021 latter day services? [...] Appointment Radiology Alfredo Herrera O.P.A.-C. [address] [place] [address] 09/06/2022 Office Visit Orthopedic Surgery Cyrus Polk M.D. [address] [place] [address] documented as of this encounter Procedures Procedure [...] 9:46 PM MST Indications: ?CP PATHWAY CALL [id number] IF POS ?? tech: pt. not and [...] from the original. Indications: CP PATHWAY CALL [id number] IF PO S tech: pt. not and [...] signed by: Jonny Reyes 03-Feb-2009 21:46 He Figueroa M.D. IMG DIAGNOSTIC IMAGING PROCE [facility] ECG 12 Lead with rhythm strip (02/03/2009 12:00 AM [facility]) Specimen (Source) Anatomical Location Collection Method / Collectio n Time Received Time / Laterality Volume 02/03/2009 Historical Provider ECG ORDERABLES Performing Organization Address City/State/ZIP Code Phon e Number HX [place] CONVERSION documented in this encounter Visit Diagnoses Not on filedocumented in this encounter
--- OUTSIDE RECORDS SUMMARY | 2022-08-14 17:58 | XMS_ITS | Encounter Summary ---
:[address] [facility] Address [address] [place] [address] Care Team Providers Name Role Phone Unavailable [...] you attend presybeterian or Patient refused 2021 jehovah's witness services? [...] Appointment Radiology Alfredo Herrera O.P.A.-C. [address] [place] [address] 09/06/2022 Office Visit Orthopedic Surgery Cyrus Polk M.D. [address] [place] [address] documented as of this encounter Visit Diagnoses Not on filedocumented in this encounter
--- OUTSIDE RECORDS SUMMARY | 2022-08-14 17:58 | XMS_ITS | Encounter Summary ---
:1965 Author Organization [facility] Address [address] [place] [address] Care Team Providers Name Role Phone Unavailable [...] Appointment Radiology Alfredo Herrera O.P.A.-C. [address] [place] [address] 09/06/2022 Office Visit Orthopedic Surgery Cyrus Polk M.D. [address] [place] [address] documented as of this encounter Visit Diagnoses Not on filedocumented in this encounter
--- OUTSIDE RECORDS SUMMARY | 2022-08-14 17:58 | XMS_ITS | Encounter Summary ---
:1965 Author Organization [facility] Address [address] [place] [address] Care Team Providers Name Role Phone Unavailable [...] you attend anabaptism or Patient refused 2021 rastafarian services? Do [...] Appointment Radiology Alfredo Herrera O.P.A.-C. [address] [place] [address] 09/06/2022 Office Visit Orthopedic Surgery Cyrus Polk M.D. [address] [place] [address] documented as of this encounter Procedures Procedure [...] Address City/State/ZIP Code Phon e Number HX [place] CONVERSION documented in this encounter Visit Diagnoses Not on filedocumented in this encounter
--- OUTSIDE RECORDS SUMMARY | 2022-08-14 17:58 | XMS_ITS | Encounter Summary ---
:1965 Author Organization [facility] Address [address] [place] [address] Care Team Providers Name Role Phone Unavailable [...] you attend religion or Patient refused 2021 taoist services? Do [...] Appointment Radiology Alfredo Herrera O.P.A.-C. [address] [place] [address] 09/06/2022 Office Visit Orthopedic Surgery Cyrus Polk M.D. [address] [place] [address] documented as of this encounter Procedures Procedure [...] and Lateral 2 Views (08/16/2008 2:53 PM [facility]) Anatomical Region Laterality Modality Chest, Thoracic RST LOS N/A Radiographic Xi ging Specimen (Source) Anatomical Collection Method Collection Time Re ceived Time Location / / Volume Laterality 08/16/2008 2:53 PM [facility] Narrative 08/16/2008 3:27 PM [facility] Indications: ?CHEST PAIN tech: Pt stated [...] has been electronically sign ed by Jeison uBndy MD on Aug 16 2008 ??3:26PM. Electronically signed by: ?? Katarian Bundy M.D. 16-Aug-2008 15:27 Procedure Note Jeison [...] Conchita Arias D.O. IMG DIAGNOSTIC IMAGING PROCE ZULEYKA ECG 12 Lead with rhythm strip (08/16/2008 12:00 AM [facility]) Specimen (Source) Anatomical Location Collection Method / Collectio n Time Received Time / Laterality Volume 08/16/2008 Historical Provider ECG ORDERABLES Performing Organization Address City/State/ZIP Code Phon e Number HX [place] CONVERSION documented in this encounter Visit Diagnoses Not on filedocumented in this encounter
--- OUTSIDE RECORDS SUMMARY | 2022-08-14 17:59 | XMS_ITS | Continuity of Care Document ---
:1965 Author Organization [facility] Address [address] [place] [address] Care Team Providers Name Role Phone Mor Singleton CRNA Unavailable Unavailable Procedures Procedure Date ANESTH, HEAD/NECK/PTRUNK ANESTH PERC IMG TX SP PROC ANESTH PERC IMG TX SP PROC Advance Directives Directive Yes / No Effective Date File Name No Information Encounters Encounter Practice Location Reason(s) Diagnoses Date Provider Provide rs Description For Visit Copied on Encounter [facility] No Areli Referring [facility] Mor. Provider: Lois CISNEROS Surgery [address] [place] [address], [place] [facility] [address] [place] [id number], [facility], [place], [place], [place], [place], [id number], [id number] [place]. . tel:[phone] tel:[phone] [facility] No [facility] Referring Anesthesia [facility] -2019 Nilay. Provider: Lois CISNEROS Surgery [address] [facility], [facility] [place], [address] [id number], [id number], [facility]. [facility] tel:[phone], [place], [phone] . tel:[phone] [facility] No [facility] Referring Anesthesia [facility] -2019 Nilay. Provider: PA, [address] [facility] [address], [place], Endy J, [place], [place], [place], [address] [facility] [id number], [id number], John, [facility]. Denisa tel:[phone] s, [place], [id number] . tel:[phone] Family History Family Member Type Diagnosis Age At Onset No Information Payers Payer name Insurance type Covered libertarian ID Authorization(s ) Medicare MB [id number] [employer] [facility] [id number] Social History Type Description Quantity Date Captured [...]
--- OUTSIDE RECORDS SUMMARY | 2022-08-14 17:59 | XMS_ITS | Continuity of Care Document ---
:1965 Author Organization [facility] Address [address] [place] [address] Phone Care Team Providers Name Role Phone [...] rs Description For Visit Copied on Encounter [facility] No Information Nov- ZProvider [facility]th[facility] [place] [address] [place] 4 . . Rheumatolo gy, [address] [place] [address], [id number], [place] tel:[phone] [facility] TOBACCO USE Apr-1 Michele Arthritis DISORDEROBESITY 8[address]. And NOSOSTEOPOROSIS NOS [address], gy, [address], [address], [place], [id number], [place], [place]. [id number], tel:[phone] tel:[phone] [facility] Age-related Apr-0 ZProvider [facility] [place] osteoporosis w/o 7[address] [place] current 4 . . Rheumatolo pathological gy, [address] [place] [address], [id number], [place] tel:[phone] [facility] OBESITY NOSTOBACCO Mar-2 ZProvider Arthritis USE [address] And DISORDEROSTEOPOROSI 4 . . Rheumatolo S NOSMALAISE AND gy, [address], [place], [place], [id number], [place] tel:[phone] [place] [facility] [place] Tobacco useObesity, Mar-2 Michele Arthritis unspecifiedAge-rela Nara. And mary osteoporosis 4 [address]o [address], gy, [address], [address] fracture [place], [address], [place], [place], [id number], [place], [place]. [id number], tel:[phone] tel:[phone] Family History Family Member Type Diagnosis Age [...]
--- OUTSIDE RECORDS SUMMARY | 2022-08-14 17:59 | XMS_ITS | Continuity of Care Document ---
:1965 Author Organization [facility] Address [address] [place] [address] Phone Care Team Providers Name Role Phone [...] rs Description For Visit Copied on Encounter [facility] No [place] Referring [facility] Information -2007 Su. Provider : Arthur [address] [place], [address], [address] [facility], [place], [place], [place], [id number], [place], [id number], . [address]. tel:[phone] tel:[phone] tel:[phone] [facility] Blurred No Adalberto Referring [facility] Information -2007 Deep. Provider: Arthur, (chief [address] complaint) [address] [facility], [address], [address], [place], [place], [place], [place], [place], [place], [id number], [place], [id number], . [id number]. tel:[phone] tel:[phone] tel:[phone] Family History Family Member Type Diagnosis Age [...]
--- OUTSIDE RECORDS SUMMARY | 2022-08-14 17:59 | XMS_ITS | Continuity of Care Document ---
:1965 Author Organization [facility] Address [address] [address] [place] [address] Phone Care Team Providers Name Role Phone Nilay Perry MD Unavailable Unavailable Advance Directives Directive Yes / No Effective Date File Name No Information Encounters Encounter Practice Location Reason(s) Diagnoses Date Provider Provide rs Description For Visit Copied on Encounter [facility] No Orlando FAULKNER Referring [facility] Nilay. Provider: [facility] [place] [address] [facility] [address], Fredis DILLON MD, [address] [facility] [address], [place], [place], [facility] [address], [id number], [place], [place], [facility] [id number], [place], [address]. tel:[phone] . tel:[phone] tel:[phone] Family History Family Member Type Diagnosis Age At Onset No Information Payers Payer name Insurance type Covered democrat ID Authorization(s ) [place] [facility] [id number] Social History Type Description Quantity Date Captured [...]
--- OUTSIDE RECORDS SUMMARY | 2022-08-14 17:59 | XMS_ITS | Continuity of Care Document ---
:1965 Author Organization [facility] Address [address] [place] [address] Care Team Providers Name Role Phone [facility] Unavailable Unavailable Procedures Procedure Date IMPLANT NEUROELECTRODES [...] Visit Copied on Encounter [facility] Provider: Surgery Surgery Surgery [facility]. David, [address], [place], [place], [place] [id number], [place], [place], , [place] [id number], [address]. [place]. tel: tel:[phone] [facility] No Twin Referring [address] Provider: Surgery Surgery Surgery [facility]. David, [address], [place], [place], [place] [id number], [place], [place], , [place] [id number], [address]. [place]. tel: tel:[phone] [facility] No Twin [address] Provider: Surgery Surgery Surgery [facility]. Jose [address] [facility] [address], [facility], [place], [place] , [place], [id number], [place], [address]. [place] [id number], tel: . [phone] tel:[phone] Family History Family Member Type Diagnosis Age At Onset No Information Payers Payer name Insurance type Covered democrat ID Authorization(s ) Medicare [id number] [employer] [facility] [id number] Social History Type Description Quantity Date Captured [...]
--- OUTSIDE RECORDS SUMMARY | 2022-08-14 18:00 | XMS_ITS | Continuity of Care Document ---
:1965 Author Organization [facility] Address [address] [place] [address] Phone Care Team Providers Name Role Phone [...] elctr each OFFICE/OUTPATIENT VISIT, EST SCS Pre[employer] [place] [employer] OFFICE/OUTPATIENT VISIT, EST OFFICE/OUTPATIENT VISIT, EST [...] For Visit Copied on Encounter OFFICE VISIT, [facility] Anxiety disorder, Ka ngas [facility] (chief unspecifiedChronic 0-202 [place]. TELEMEDICINE Pain [place] complaint) migraine without 2 [address] [facility], aura, intractable, John, [address] without status [place], migrainosusOsteoar is, [place], Caterina, thritisPain in [id number] [place], left shoulderPain , [place]. [id number] in left hipPain in tel:+ , [place] right hipPain in [id number] tel:+ left kneePain in [id number] right kneeOther spondylosis, cervical regionOther spondylosis, lumbar regionRadiculopath y, lumbar regionPain in thoracic spineFibromyalgiaP ostlaminectomy syndrome, not elsewhere classifiedLong term (current) use of opiate analgesic OFFICE VISIT, [facility] Pain OsteoarthritisChro K [facility] (chief saul migraine [place]. Provide r: TELEMEDICINE Pain [place] complaint) without aura, [facility], intractable, John, Will J, [address] without status [place] [address] John, migrainosusAnxiety is, [place], John, Caterina, disorder, [id number] [place], unspecifiedPain in , [place]. s, [place] , [id number] left shoulderPain tel: [phone] , [place] in left hipPain in [id number] . tel: right hipPain in tel:2 [phone] left kneePain in 570483 5 right kneeOther spondylosis, cervical regionOther spondylosis, lumbar regionRadiculopath y, lumbar regionPain in thoracic spinePostlaminecto my syndrome, not elsewhere classifiedFibromya lgiaLong term (current) use of opiate analgesic OFFICE VISIT, [facility] Pain in left [facility] (chief shoulderAnxiety [place]. TELEMEDICINE Pain Caterina complaint) disorder, [address] [facility], unspecifiedChronic John, [address] migraine without [place], aura, intractable, is, [place], Caterina, without status [id number] [place], migrainosusOsteoar , [place]. [id number] thritisPain in tel: , US right hipPain in [id number] tel: left hipPain in 16276384 left kneePain in right kneeOther spondylosis, cervical regionOther spondylosis, lumbar regionRadiculopath y, lumbar regionPain in thoracic spinePostlaminecto my syndrome, not elsewhere classifiedFibromya lgiaLong term (current) use of opiate analgesic OFFICE VISIT, [facility] Pain in left [facility] (chief hipAnxiety [place]. TELEMEDICINE Pain [place] complaint) disorder, 2 [address] [facility], unspecifiedChronic John, [address] migraine without [place] John, aura, intractable, is, [place], Caterina, without status [id number] [place], migrainosusOsteoar , [place]. [id number] thritisPain in tel: , US left shoulderPain [id number] tel: in right hipPain 71073861 in left kneePain in right kneeOther spondylosis, cervical regionOther spondylosis, lumbar regionRadiculopath y, lumbar regionPain in thoracic spineFibromyalgiaP ostlaminectomy syndrome, not elsewhere classifiedLong term (current) use of opiate analgesic [facility] No Information [facility] [place]. Pain [place] 2 [address] [facility], John, [address] [place], is, [place], Caterina, [id number] [place], , [place]. [id number] tel: , [place] [id number] tel: [phone] OFFICE/OUTPAT [facility] Anxiety disorder, Ka [facility] Referring IENT VISIT, [facility] (chief unspecifiedChronic [place] . Provider: EST Pain [place] complaint) migraine without 2 [address] [facility], aura, intractable, John, Will J, [address] without status [place] [address] John, migrainosusOsteoar is, [place], John, Caterina, thritisPain in [id number] [place], left shoulderPain , [place]. s, [place], 710928982 in left hipPain in tel: [phone] , US right hipPain in 06426363 . tel: left kneePain in tel:2 [phone] right kneeOther [id number] spondylosis, cervical regionOther spondylosis, lumbar regionRadiculopath y, lumbar regionPain in thoracic spineFibromyalgiaP ostlaminectomy syndrome, not elsewhere classifiedLong term (current) use of opiate analgesic OFFICE VISIT, [facility] Chronic migraine Jan- Jens gas [facility] (chief without aura, [place]. TELEMEDICINE Pain [place] complaint) intractable, 2 [address] [facility], without status John, [address] migrainosusAnxiety [place], disorder, is, [place], [place], unspecifiedOsteoar [id number] [place], thritisPain in , US. 284238453 left shoulderPain tel: , [place] in right hipPain [id number] tel: in left hipPain in 41890300 right kneePain in left kneeOther spondylosis, cervical regionOther spondylosis, lumbar regionRadiculopath y, lumbar regionPain in thoracic spineFibromyalgiaP ostlaminectomy syndrome, not elsewhere classifiedLong term (current) use of opiate analgesic [facility] [place] Provider: Pain Caterina 2 [address] [facility], John Will J, [address] [place] [address] John, is, [place], John, [place], [id number] [place], , [place]. s, [place], [id number] tel: [phone] , [place] [id number] . tel: tel: [phone] OFFICE VISIT, [facility] Radiculopathy, [facility] (chief lumbar [place]. TELEMEDICINE Pain [place] complaint) regionPostlaminect 2 [address] [facility], marquis syndrome, not John, [address] elsewhere [place] John, classifiedPain in is, [place], [place], left hipAnxiety [id number] MN, disorder, , US. [id number] unspecifiedPain in tel: , US thoracic [id number] tel: spineOsteoarthriti [phone] sChronic migraine without aura, intractable, without status migrainosusPain in right hipPain in left shoulderPain in right kneePain in left kneeFibromyalgiaOt her spondylosis, lumbar regionOther spondylosis, cervical regionLong term (current) use of opiate analgesicEncounter for therapeutic drug level monitoring OFFICE VISIT, [facility] Radiculopathy, [facility] (chief lumbar [place]. Provider: TELEMEDICINE Pain [place] complaint) regionPostlaminect 2 [address] [facility], marquis syndrome, not John, Will J , [address] elsewhere [place] [address] John classifiedPain in is, [place], John, Caterina, left hipAnxiety [id number] Augusta f[place], disorder, , [place]. s, [place], [id number] unspecifiedPain in tel: [phone] , [place] thoracic [id number] . tel: spineOsteoarthriti tel : [phone] sChronic migraine 57491 45 without aura, intractable, without status migrainosusPain in right hipPain in left shoulderPain in right kneePain in left kneeFibromyalgiaOt her spondylosis, lumbar regionOther spondylosis, cervical regionLong term (current) use of opiate analgesic OFFICE VISIT, [facility] Radiculopathy, [facility] Referring [facility] (chief lumbar [place]. Provider: TELEMEDICINE Pain [place] complaint) regionPostlaminect 2 [address] [facility], marquis syndrome, not Endy Lopez J , [address] elsewhere [place] [address] John classifiedPain in is, [place], John, [place], left hipAnxiety [id number] [place]a f[place], disorder, , [place]. s, [place], [id number] unspecifiedPain in tel: [phone] , [place] thoracic [id number] . tel: spineOsteoarthriti tel : [phone] sChronic migraine 63601 45 without aura, intractable, without status migrainosusPain in right hipPain in left shoulderPain in right kneePain in left kneeFibromyalgiaOt her spondylosis, lumbar regionLong term (current) use of opiate analgesicOther spondylosis, cervical region OFFICE VISIT, [facility] Radiculopathy, [facility] (chief lumbar [place]. TELEMEDICINE Pain [place] complaint) regionPostlaminect 1 [address] [facility], marquis syndrome, not John, [address] elsewhere [place] John classifiedPain in is, [place], Caterina, left hipAnxiety [id number] [place], disorder, , US. [id number] unspecifiedPain in tel: , US thoracic [id number] tel: spineOsteoarthriti [phone] sChronic migraine without aura, intractable, without status migrainosusPain in right hipPain in left shoulderPain in right kneePain in left kneeFibromyalgiaOt her spondylosis, lumbar regionLong term (current) use of opiate analgesicOther spondylosis, cervical region OFFICE/OUTPAT [facility] Other spondylosis, shlomo Referring IENT VISIT, [facility] (chief cervical [place]. Provide r: EST Pain [place] complaint) regionRadiculopath 1 [address] [facility], y, lumbar John, Will J, [address] regionPostlaminect [place] [address] John, marquis syndrome, not is, [place], John, [place], elsewhere [id number] [place], classifiedPain in , [place]. s, MN, 402025254 left hipAnxiety tel: [phone] , [place] disorder, [id number] . tel: unspecifiedPain in tel :2 [phone] thoracic [id number] spineOsteoarthriti sChronic migraine without aura, intractable, without status migrainosusPain in right hipPain in left shoulderPain in right kneePain in left kneeFibromyalgiaOt her spondylosis, lumbar regionLong term (current) use of opiate analgesic OFFICE VISIT, [facility] Other spondylosis, anglucrecia EST [facility] (chief cervical [place]. TELEMEDICINE Pain [place] complaint) regionRadiculopath 1 [address] [facility], y, lumbar John, [address] regionPostlaminect [place] John, marquis syndrome, not is, [place], [place], elsewhere [id number] [place], classifiedPain in , US. 318424989 left hipAnxiety tel: , [place] disorder, [id number] tel: unspecifiedPain in 73197008 thoracic spineOsteoarthriti sChronic migraine without aura, intractable, without status migrainosusPain in right hipPain in left shoulderPain in right kneePain in left kneeFibromyalgiaOt her spondylosis, lumbar regionLong term (current) use of opiate analgesic OFFICE VISIT, [facility] Other spondylosis, Sep- K shlomo Referring [facility] (chief cervical [place]. Provider: TELEMEDICINE Pain [place] complaint) regionRadiculopath 1 [address] [facility], y, lumbar John, Will J, [address] regionPostlaminect [place] [address] John, marquis syndrome, not is, [place], John, [place], elsewhere [id number] [place], classifiedPain in , [place]. s, MN, 884404425 left hipAnxiety tel: [phone] , [place] disorder, [id number] . tel: unspecifiedPain in tel : [phone] thoracic 7835668 spineOsteoarthriti sChronic migraine without aura, intractable, without status migrainosusPain in right hipPain in left shoulderPain in right kneePain in left kneeFibromyalgiaOt her spondylosis, lumbar regionLong term (current) use of opiate analgesic [facility] Encounter for Mario Referr ing [facility] therapeutic drug [place]. Pro vider: Pain [place] level 1 [address] [facility], monitoringLong John, Will J, [address] term (current) use [place] [address] John, of opiate is, [place], John, [place], analgesic [id number] [place], , [place]. s, [place], 501463543 tel: [phone] , [place] [id number] . tel: tel: [phone] OFFICE/OUTPAT [facility] Other spondylosis, Aug-0 K shlomo Referring IENT VISIT, [facility] (chief lumbar [place]. Provider : EST Pain [place] complaint) regionFibromyalgia 1 [address] [facility], Pain in left John, Will J, [address] kneePain in right [place] 72 [address] John, kneePain in left is, [place], John, [place], shoulderPain in [id number] [place], right hipChronic , [place]. s, [place], 429386851 migraine without tel:+ [phone] , [place] aura, intractable, 03432428 . tel: without status tel:+ [phone] migrainosusOsteoar 8412 345 thritisPain in thoracic spineAnxiety disorder, unspecifiedPain in left hipPostlaminectomy syndrome, not elsewhere classifiedRadiculo shane, lumbar regionOther spondylosis, cervical regionLong term (current) use of opiate analgesicEncounter for therapeutic drug level monitoring OFFICE VISIT, [facility] Other spondylosis, [facility] Referring [facility] (chief lumbar [facility]. Provider: TELEMEDICINE Pain [place] complaint) regionFibromyalgia 1 [address] [facility], Pain in left John, Will J, [address] kneePain in right [place] 72 [address] John, kneePain in left is, [place], John, [place], shoulderPain in [id number] Augusta fischer [place], right hipChronic , [place]. s, MN, 459359600 migraine without tel:+ [phone] , [place] aura, intractable, 91090011 . tel: without status tel: [phone] migrainosusOsteoar 8412 345 thritisPain in thoracic spineAnxiety disorder, unspecifiedPain in left hipPostlaminectomy syndrome, not elsewhere classifiedRadiculo shane, lumbar regionOther spondylosis, cervical regionLong term (current) use of opiate analgesic OFFICE VISIT, [facility] Other spondylosis, Kanu0 K [facility] Referring [facility] (chief lumbar [facility]. Provider: TELEMEDICINE Pain [place] complaint) [address]Fibromyalgia [address] [facility], Pain in left John, Will J, [address] kneePain in right [place] [address] John, kneePain in left is, [place], John, Caterina, shoulderPain in 500935150 [place], right hipChronic , [place]. s, [place], 939262415 migraine without tel:+ [phone] , [place] aura, intractable, 75276467 . tel: without status tel: [phone] migrainosusOsteoar 8412 345 thritisPain in thoracic spineAnxiety disorder, unspecifiedPain in left hipPostlaminectomy syndrome, not elsewhere classifiedRadiculo shane, lumbar regionOther spondylosis, cervical regionLong term (current) use of opiate analgesic OFFICE VISIT, [facility] Other spondylosis, [facility] Referring [facility] (chief lumbar 5-202 [place]. Provider: TELEMEDICINE Pain [place] complaint) regionFibromyalgia 1 [address] [facility], Pain in left John, Will J, [address] kneePain in right [place] 72 [address] John, kneePain in left is, [place], John, Caterina, shoulderPain in 786141157 [place], right hipChronic , [place]. s, MN, 732590885 migraine without tel: [phone] , [place] aura, intractable, 02920290 . tel: without status tel: [phone] migrainosusOsteoar 8412 345 thritisPain in thoracic spineAnxiety disorder, unspecifiedPain in left hipPostlaminectomy syndrome, not elsewhere classifiedRadiculo shane, lumbar regionOther spondylosis, cervical regionLong term (current) use of opiate analgesic [facility] Other spondylosis, March- Mario Referring [facility] (chief lumbar 4-202 [place]. Provider: Pain [place] complaint) regionFibromyalgia 1 [address] [facility], Pain in left John, Will J, [address] kneePain in right [place] [address] John, kneeChronic is, [place], John, Caterina, migraine without [id number] [place], aura, intractable, , [place]. s, [place] , 866922136 without status tel: [phone] , [place] migrainosusPain in 07410428 . tel: right hipPain in tel: [phone] left shoulderPain 00715 45 in right shoulderOsteoarthr itisPain in thoracic spineAnxiety disorder, unspecifiedPain in left hipPostlaminectomy syndrome, not elsewhere classifiedRadiculo shane, lumbar regionOther spondylosis, cervical regionLong term (current) use of opiate analgesic OFFICE VISIT, [facility] Other spondylosis, Mar-2 K angas Referring [facility] (chief lumbar [place]. Provider: TELEMEDICINE Pain [place] complaint) regionFibromyalgia 1 [address] [facility], Pain in left John, Will J, [address] kneePain in right [place] [address] John, kneeChronic is, [place], John, [place], migraine without [id number] [place], aura, intractable, , [place]. s, [place] , [id number] without status tel: [phone] , [place] migrainosusPain in 26911084 . tel: right hipPain in tel:2 [phone] left shoulderPain 11129 45 in right shoulderOsteoarthr itisPain in thoracic spineAnxiety disorder, unspecifiedPain in left hipPostlaminectomy syndrome, not elsewhere classifiedRadiculo shane, lumbar regionOther spondylosis, cervical regionLong term (current) use of opiate analgesic OFFICE VISIT, [facility] Pain in left Fe- Mario Referring [facility] (chief hipPostlaminectomy [place]. P rovider: TELEMEDICINE Pain [place] complaint) syndrome, not 1 [address] [facility], elsewhere John, Endy J, [address] classifiedRadiculo [place] [address] John, shane, lumbar is, [place], John, Caterina, regionOther [id number] [place], spondylosis, , [place]. s, [place], 271136310 cervical tel: [phone] , [place] regionOther 47653021 . tel: spondylosis, tel: 2 [phone] lumbar 1488785 regionFibromyalgia Pain in left kneePain in right kneeChronic migraine without aura, intractable, without status migrainosusPain in right hipPain in left shoulderPain in right shoulderOsteoarthr itisPain in thoracic spineAnxiety disorder, unspecifiedLong term (current) use of opiate analgesic OFFICE VISIT, [facility] Pain in left Mario Referring [facility] (chief hipPostlaminectomy [place]. P rovider: TELEMEDICINE Pain [place] complaint) syndrome, not 1 [address] [facility], elsewhere Endy Lopez J, [address] classifiedRadiculo [place] [address] John, shane, lumbar is, [place], John, Caterina, regionOther [id number] [place], spondylosis, , [place]. s, [place], 962163501 cervical tel:+ [phone] , [place] regionOther [id number] . tel: spondylosis, tel: 2 [phone] lumbar 3796171 regionFibromyalgia Pain in left kneePain in right kneeChronic migraine without aura, intractable, without status migrainosusPain in right hipPain in left shoulderPain in right shoulderOsteoarthr itisPain in thoracic spineAnxiety disorder, unspecifiedLong term (current) use of opiate analgesic OFFICE VISIT, [facility] Pain in left Mario Referring [facility] (chief hipPostlaminectomy [place]. P rovider: TELEMEDICINE Pain [place] complaint) syndrome, not 0 [address] [facility], elsewhere Endy Lopez J, [address] classifiedRadiculo [facility] [address] John, shane, lumbar is, [place], John, [place], regionOther [id number] [place], spondylosis, , [place]. s, [place], 737354019 cervical tel: [phone] , [place] regionOther 70283409 . tel: spondylosis, tel: 2 [phone] lumbar 2138606 regionFibromyalgia Pain in left kneePain in right kneeChronic migraine without aura, intractable, without status migrainosusPain in right hipPain in left shoulderPain in right shoulderOsteoarthr itisPain in thoracic spineAnxiety disorder, unspecifiedLong term (current) use of opiate analgesic OFFICE VISIT, [facility] Postlaminectomy [facility] Referring [facility] (chief syndrome, not [place]. Provid er: TELEMEDICINE Pain [place] complaint) elsewhere 0 [address] [facility], classifiedRadiculo John Will J, [address] shane, lumbar [place] [address] [facility] John, regionOther is, [place], John, [place], spondylosis, [id number] [place], cervical , [place]. s, [place], 619577493 regionOther tel:+ [phone] , [place] spondylosis, 69829220 . tel: lumbar tel:+ [phone] regionFibromyalgia 8412 345 Pain in left kneePain in right kneeChronic migraine without aura, intractable, without status migrainosusPain in left hipPain in right hipPain in left shoulderPain in right shoulderOsteoarthr itisPain in thoracic spineAnxiety disorder, unspecifiedLong term (current) use of opiate analgesic OFFICE/OUTPAT [facility] Postlaminectomy Oct- Gonzalez as Referring IENT VISIT, [facility] (chief syndrome, not [place]. Pr ovider: EST Pain [place] complaint) elsewhere 0 7235 [facility], classifiedRadiculo Endy Lopez J, [address] shane, lumbar [place] 7[address] [facility] John, regionOther is, [place], John, Caterina, spondylosis, [id number] [place], cervical , [place]. s, [place], [id number] regionOther tel:+ [phone] , [place] spondylosis, 16251617 . tel: lumbar tel: [phone] regionFibromyalgia 8412 345 Pain in left kneePain in right kneeChronic migraine without aura, intractable, without status migrainosusPain in left hipPain in right hipPain in left shoulderPain in right shoulderOsteoarthr itisPain in thoracic spineAnxiety disorder, unspecifiedLong term (current) use of opiate analgesicEncounter for therapeutic drug level monitoring OFFICE VISIT, [facility] Postlaminectomy Sep-2 Gonzalez as Referring EST [facility] (chief syndrome, not [place]. Provid er: TELEMEDICINE Pain [place] complaint) elsewhere 0 [address] [facility], classifiedRadiculo John, Will J, [address] shane, lumbar [place] [address] John, regionOther is, [place], John, Caterina, spondylosis, [id number] [place], cervical , [place]. s, [place], 123774548 regionOther tel: [phone] , [place] spondylosis, 11911353 . tel: lumbar regionLong tel: [phone] term (current) use 8412 345 of opiate analgesicAnxiety disorder, unspecifiedFibromy algiaPain in left kneePain in right kneeChronic migraine without aura, intractable, without status migrainosusPain in left hipPain in right hipPain in left shoulderPain in right shoulderOsteoarthr itisPain in thoracic spine OFFICE VISIT, [facility] Postlaminectomy Yeimy en Referring [facility] (chief syndrome, not V[place]. Provid er: TELEMEDICINE Pain [place] complaint) elsewhere 0 [address] [facility] [address] Jermaine l J, [address] shane, lumbar 11 Umair [address] John, regionOther 100, John, [place], spondylosis, [place], cervical e, [place], s, MN, [id number] regionOther [id number] [phone] , [place] spondylosis, , [place]. . tel: lumbar regionLong tel: te l:+ [phone] term (current) use [id number] of opiate analgesicAnxiety disorder, unspecified [facility] Postlaminectomy RN RN. Refe [facility] syndrome, not [address] Prov ider: Pain C[place] elsewhere 0 [facility], classified [place] Will J, [address] is, [place], [address] John, [id number] John, [place], , [place]. [place], tel: s, [place], [phone] [phone] , [place] . tel: tel: [phone] [facility] Postlaminectomy David Ref [facility] Surgery syndrome, not 4-202 Gi. Provider: Pain Center elsewhere 0 7235 [facility], classified JohnEndy J, [address] [place] [address] John, is, [place], Chandana Lopeza, [id number] [place], , [place]. s, [place], 767606294 tel: [phone] , [place] 81120062 . tel: tel:+[phone] OFFICE VISIT, [facility] Postlaminectomy Kanga s Referring [facility] (chief syndrome, not [place]. Provider: TELEMEDICINE Pain complaint) elsewhere 0 7235 [facility], classifiedRadiculo JohnEndy J, [address] shane, lumbar [place] [address] O hms John, regionOther is, [place], [place], [place], spondylosis, [id number] [place], cervical , [place]. [place], [place], [address]12[address] regionOther tel: [phone] , [place] spondylosis, [id number] . tel: lumbar regionLong tel: [phone] term (current) use [id number] of opiate analgesicAnxiety disorder, unspecified [facility] Postlaminectomy Mario Refe [facility] syndrome, not [place]. Provid er: Pain Caterina elsewhere 0 7235 [facility], classified JohnEndy J, [address] [place] [address] John, is, [place], John [place], [id number] [place], , [place]. [place], [place], [address]65[address] tel: [phone] , [place] [id number] . tel: tel:[phone] [facility] Postlaminectomy Kokayeff Ref [facility] Surgery syndrome, not Gi. Provider: Pain Center elsewhere 0 7235 [facility], classified Endy Lopez J, [address] [place] [address] John, is, [place], John, Caterina, [id number] [place], , [place]. [place], [place], [address]116[address] tel: [phone] , [place] [id number] . tel: tel:[phone] OFFICE VISIT, [facility] Back Pain Postlaminectomy Michael s Referring [facility] (chief syndrome, not [place]. Provider: TELEMEDICINE Pain complaint) elsewhere 0 7235 [facility], classifiedRadiculo Endy Lopez J, [address] shane, lumbar [place] 7235 O [facility] John, regionLong term is, [place], [place], [place], (current) use of [id number] [place], opiate , [place]. [place], [place], 356909831 analgesicOther tel: [phone] , [place] spondylosis, [id number] . tel: cervical tel: [phone] regionOther [id number] spondylosis, lumbar region [facility] No Information [facility] [place]. Pain Caterina 0 7235 [facility], John, 7235 [facility] [place], is, [place], [place], [id number] [place], , [place]. [address] tel: , [place] [id number] tel: [phone] OFFICE VISIT, [facility] Back Pain CervicalgiaPostlam K shlomo Referring [facility] Pain Clinic (chief inectomy syndrome, [place]. P rovider: TELEMEDICINE Pain [place] complaint) not elsewhere 0 7235 [facility], classifiedRadiculo Endy Lopez J, [address] shane, lumbar [place] 7235 O [facility] John, regionLong term is, [place], [place], [place], (current) use of [id number] [place], opiate analgesic , [place]. [place], [place], 895330011 tel: [phone] , [place] [id number] . tel: tel:[phone] Psych Dx Eval [facility] Pain disorder with Juliana e [facility] related Maikel Provider: Pain psychological [address] [facility], factorsBipolar Ohny Will J, 7235 [address] disorder John, 7235 [facility] John, [place], Caterina, is, [place], [place], [id number] s, [place], [address] , [place]. [address] , [place] tel: . tel: [phone] tel: [phone] OFFICE VISIT, [facility] Back Pain Postlaminectomy Apr-2 Michael s Referring [facility] (chief syndrome, not [place]. Provider: TELEMEDICINE Pain complaint) elsewhere 0 7235 [facility], classifiedLong John Endy Jorge, [address] term (current) use [place] 7 235 [address] John, of opiate is, [place], [place], [place], analgesicRadiculop [id number] [place], athy, lumbar , [place]. [place], [place], 327599427 regionCervicalgia tel: [phone] , [place] [id number] . tel: tel: [phone] [facility] No Information Jan- [facility] Peter. Pain [place] 0 7235 [facility], John, [address] [place], is, [place], [place], [id number] [place], , [place]. [address]2396577 tel: , [place] [id number] tel: [phone] OFFICE/OUTPAT [facility] Back Pain Postlaminectomy Jan- Gonzalez as Referring IENT VISIT, [facility] (chief syndrome, not [place]. Pr ovider: EST Pain Caterina complaint) elsewhere 0 7235 [facility], classifiedLong Endy Lopez, [address]235 [address] term (current) use [place] 7 235 [address] John, of opiate is, [place], [place], [place], analgesicCervicalg [id number] [place], iaRadiculopathy, , [place]. s, [place], 599600509 lumbar region tel: [phone] , [place] [id number] . tel: tel:[phone] [facility] Postlaminectomy Mar- Garcia Refe rring [facility] Surgery syndrome, not Viry. Provider: Pain Center elsewhere 0 7235 [facility], classified John, Will J, [address] [place] [address] John, is, [place], Caterina Lopez, [id number] [place], , [place]. [place], [place], [address]239922 tel:+ [phone] , [place] [id number] . tel: tel:[phone] OFFICE/OUTPAT [facility] Back Pain Postlaminectomy Gonzalez as Referring IENT VISIT, [facility] (chief syndrome, not 8 [place]. Pr ovider: EST Pain Caterina complaint) elsewhere 0 7235 [facility], classifiedCervical John, Will J, 7235 [address] giaRadiculopathy, [place] 72 35 [address] John, lumbar regionLong is, [place], Caterina Lopez, term (current) use [id number] [place], of opiate , [place]. [place], [place], 486642683 analgesicCarrier tel: [phone] , [place] of Methicillin [id number] . tel: susceptible tel:2 [phone] Staphylococcus 6436462 aureusCarrier of Methicillin resistant Staph aureusMethicillin resis staph infct causing diseases classd elsMelissacounter for therapeutic drug level monitoring [facility] Postlaminectomy [facility] syndrome, not [place]. Pain Caterina elsewhere 0 7235 [facility], classified John, [address] [place] John, is, [place], Caterina, 310623812 [place], , [place]. 354774268 tel:+ , US [id number] tel: [phone] OFFICE/OUTPAT [facility] Back Pain Radiculopathy, Kanga s Referring IENT VISIT, [facility] (chief lumbar [place]. Provider : EST Pain [place] complaint) regionPostlaminect 0 7235 [facility], marquis syndrome, not John, Will J , [address] elsewhere [place] 7[address] John, classifiedCervical is, [place], Caterina Lopez, giaLong term [id number] [place], (current) use of , [place]. [place], [place], 388754614 opiate analgesic tel: [phone] , [place] [id number] . tel: tel:[phone] OFFICE/OUTPAT [facility] Back Pain Radiculopathy, Kanga s Referring IENT VISIT, [facility] (chief lumbar 7-201 [place]. Provider : EST Pain [place] complaint) regionCervicalgiaL 9 35 [address] [facility], beryl term (current) Endy Lopez J, [address] use of opiate [place] 7235 [address] hms John, analgesicPostlamin is, [place], John, Caterina, ectomy syndrome, [id number] [place], not elsewhere , [place]. [place], MN, 838608837 classified tel: [phone] , [place] [id number] . tel: tel: [phone] OFFICE/OUTPAT [facility] Back Pain Chronic pain Referring IENT VISIT, [facility] (chief syndromePostlamine 6-201 [place] . Provider: EST Pain [place] complaint) ctomy syndrome, 9 35 [facility], not elsewhere Endy Lopez J, [address] classifiedRadiculo [place] 7 235 [address] John, shane, lumbar is, [place], John, [place], regionCervicalgiaL [id number] [place], beryl term (current) , [place]. [place], [place] , 606987266 use of opiate tel: [phone] , [place] analgesic [id number] . tel: tel: [phone] OFFICE/OUTPAT [facility] Back Pain superintendent terminal Mario Re ferring IENT VISIT, [facility] (chief (current) use of 9201 [place]. Provider: EST Pain [place] complaint) opiate 9 [facility], analgesicPostlamin JohnEndy J, 7235 [address] ectomy syndrome, [place] 723 5 [address] John, not elsewhere is, [place], John, Caterina, classifiedRadiculo [id number] [place], shane, lumbar , [place]. s, MN, 284431874 regionCervicalgia tel: [phone] , [place] 98874068 . tel: tel:[phone] OFFICE/OUTPAT [facility] Back Pain Postlaminectomy Carlos as Referring IENT VISIT, [facility] (chief syndrome, not 0-201 [place]. Pr ovider: EST Pain [place] complaint) elsewhere 9 7235 [facility], classifiedLow back John, Will J, [address] painCervicalgiaLon [place] 7 235 [address] John, g term (current) is, [place], [place], [place], use of opiate [id number] [place], analgesic , [place]. [place], [place], 417979800 tel:[phone] , US [id number] . tel: tel:[phone] OFFICE/OUTPAT [facility] Back Pain Postlaminectomy Carlos as Referring IENT VISIT, [facility] (chief syndrome, not 0-201 [place]. Pr ovider: EST Pain [place] complaint) elsewhere 9 7235 [facility], classifiedLow back John, Will J, [address] painCervicalgiaLon [place] 7 235 [address] John, g term (current) is, [place], [place], [place], use of opiate 748558930 [place], analgesic , [place]. [place], [place], 393115799 tel:[phone] , [place] [id number] . tel: tel:[phone] OFFICE/OUTPAT [facility] Back Pain Postlaminectomy Carlos as Referring IENT VISIT, [facility] (chief syndrome, not 1-201 [place]. Pr ovider: EST Pain [place] complaint) elsewhere 9 7235 [facility], classifiedLow back John, Will J, [address] painCervicalgiaEnc [place] 7 235 [address] more [place] for is, [place], John, [place], therapeutic drug [id number] [place], level , [place]. [place], [place], 010868061 monitoringLong tel: [phone] , [place] term (current) use 91620485 . tel: of opiate tel:2 [phone] analgesic [id number] OFFICE/OUTPAT [facility] Back Pain Postlaminectomy March- Gonzalez as Referring IENT VISIT, [facility] (chief syndrome, not 1-201 [place]. Pr ovider: EST Pain Caterina complaint) elsewhere 9 7235 [facility], classifiedLow back John, Will J, [address] painCervicalgiaLon [place] 7 235 [address] John, g term (current) is, [place], John, Caterina, use of opiate 440997627 [place], analgesic , [place]. [place], [place], 256153235 tel: [phone] , [place] 94671530 . tel: tel:[phone] OFFICE/OUTPAT [facility] Back Pain Postlaminectomy Feb-0 Garcia Referring IENT VISIT, [facility] (chief syndrome, not 2-201 Viry. Pr ovider: EST Pain Caterina complaint) elsewhere 9 7235 [facility], classifiedRadiculo John, Will J, 7235 [address] shane, lumbar [place] 7235 O hms John, regionCervicalgiaL is, [place], John, [place], beryl term (current) 979227909 [place], use of opiate , [place]. [place], [place], 270067008 analgesic tel:[phone] , US [id number] . tel: tel:[phone] OFFICE/OUTPAT [facility] Back Pain Chronic pain Nov- Mario Referring IENT VISIT, [facility] (chief syndromeRadiculopa 3-201 [place] . Provider: EST Pain [place] complaint) thy, lumbar 9 7235 [facility], regionLow back John, Will J, [address]235 [address] painLong term [place] 7235 O hms John, (current) use of is, [place], John, [place], opiate analgesic [id number] [place], , [place]. [place], [place], 221789216 tel: [phone] , US [id number] . tel: tel:[phone] [facility] Postlaminectomy Nov- Mario Refe [facility] syndrome, not 3-201 [place]. Provid er: Pain Caterina elsewhere 9 7235 [facility], classified Endy Lopez, [address] [place] 7[address] John, is, [place], Caterina Lopez, [id number] [place], , [place]. [place], [place], 975400331 tel: [phone] , US [id number] . tel: tel:[phone] OFFICE/OUTPAT [facility] Back Pain Radiculopathy, Kanga s Referring IENT VISIT, [facility] (chief lumbar regionLow [place]. Provider: EST Pain Caterina complaint) back painLong term 8 7235 [facility], (current) use of Endy Lopez, [address] opiate analgesic [place] 723 5 [address] John, is, [place], Caterina Lopez, [id number] [place], , [place]. [place], [place], 466132841 tel: [phone] , [place] 79686203 . tel: tel:[phone] [facility] Postlaminectomy Sep- Mario Refe [facility] syndrome, not 1-201 [place]. Provid er: Pain [place] elsewhere 8 7235 [facility], classified Endy Lopez, [address] [place] [address] John, is, [place], Caterina Lopez, [id number] [place], , [place]. [place], [place], 268711753 tel: [phone] , [place] [id number] . tel: tel:[phone] [facility] Postlaminectomy Aug- Garcia Refe [facility] Surgery syndrome, not 5-201 Viry. Provider: Pain Center elsewhere 8 7235 [facility], classified Endy Lopez, [address] [place] 7[address] John, is, [place], Caterina Lopez, [id number] [place], , [place]. [place], [place], 717606319 tel: [phone] , US [id number] . tel: tel: [phone] OFFICE/OUTPAT [facility] Back Pain Postlaminectomy Oct-2 Gonzalez as Referring IENT VISIT, [facility] (chief syndrome, not 2-201 [place]. Pr ovider: EST Pain [place] complaint) elsewhere 8 7235 [facility], classifiedRadiculo Endy Lopez, 7235 [facility] shane, lumbar [place] 7235 [address] John, regionLow back is, [place], John, Caterina, pain [id number] [place], , [place]. [place], [place], 935968204 tel: [phone] , US [id number] . tel: tel: [phone] [facility] Postlaminectomy Oct-0 Mario Refe [facility] syndrome, not 1-201 [place]. Provid er: Pain Caterina elsewhere 8 7235 [facility], classifiedLow back Endy Lopez J, [address] pain [place] 7235 [facility] John, is, [place], Chandana Lopeza, [id number] [place], , [place]. [place], [place], 261106381 tel: [phone] , US [id number] . tel: tel: [phone] [facility] Postlaminectomy Sep-2 Garcia Refe [facility] Surgery syndrome, not 7-201 Viry. Provider: Pain Center elsewhere 8 7235 [facility], classified John Will J, [address] [place] 7235 [facility] John, is, [place], Chandana Lopeza, [id number] [place], , [place], [place], 617460869 tel: [phone] , US [id number] . tel: tel:[phone] OFFICE/OUTPAT [facility] Back Pain Chronic pain Sep-1 Mario Referring IENT VISIT, [facility] (chief syndromePostlamine 9-201 [place] . Provider: EST Pain [place] complaint) ctomy syndrome, 8 7235 [address] [facility], not elsewhere Endy oLpez, [address] classifiedRadiculo [place] 7 235 [address] John, shane, lumbar is, [place], John, Caterina, regionLow back [id number] [place], pain , [place]. [place], [place], 369069848 tel:+ [phone] , [place] 73542531 . tel: tel:[phone] OFFICE/OUTPAT [facility] Back Pain Chronic pain Sep-0 Mario Referring IENT VISIT, [facility] (chief syndromeCervicalgi 5- [place] . Provider: EST Pain Caterina complaint) aPostlaminectomy 8 7235 [address] [facility], syndrome, not Endy Lopez, 7[address] elsewhere [place] 7[address] John, classifiedLow back is, [place], John, Caterina, painRadiculopathy, 219312603 [place], lumbar region , [place]. [place], [place], 975880775 tel: [phone] , [place] [id number] . tel: tel:[phone] OFFICE/OUTPAT [facility] Back Pain Postlaminectomy Aug-0 Gonzalez as Referring IENT VISIT, [facility] (chief syndrome, not 6- [place]. Pr ovider: EST Pain [place] complaint) elsewhere 8 [address]235 [address] [facility], classifiedChronic Endy Lopez , [address] pain [place] [address] John, syndromeCervicalgi is, [place], John, [place], aLow back pain [id number] [place], , [place]. [place], [place], 401895668 tel: [phone] , US [id number] . tel: tel:[phone] OFFICE/OUTPAT [facility] Back Pain Chronic pain Kanu-0 Mario Referring IENT VISIT, [facility] (chief syndromeCervicalgi 6-201 [place] . Provider: EST Pain [place] complaint) aLow back pain 8 7235 [address] [facility], John, Will J, [address] [place] [address] John, is, [place], John, [place], [id number] [place], , [place]. [place], [place], 089761412 tel: [phone] , [place] [id number] . tel: tel: [phone] OFFICE/OUTPAT [facility] Back Pain CervicalgiaChronic Apr-1 K angas Referring IENT VISIT, [facility] (chief pain syndromeLow 3-201 [place]. Provider: EST Pain [place] complaint) back painLumbago 8 7235 [facility], with sciatica, John, Will J, [address] left [place] 7235 [address] John, sidePostlaminectom is, [place], Caterina Lopez, y syndrome, not [id number] [place], elsewhere , [place]. [place], [place], 230763582 classifiedLong tel:43 , [place] term (current) use 53428835 . tel: of opiate tel: [phone] analgesic [phone] OFFICE/OUTPAT [facility] Back Pain CervicalgiaChronic Apr-0 K angas Referring IENT VISIT, [facility] (chief pain syndromeLow 6-201 [place]. Provider: EST Pain Caterina complaint) back 8 7235 [facility], painPostlaminectom Endy Lopez J, [address] y syndrome, not [place] 7235 [address] John, elsewhere is, [place]John [place], classified [id number] [place], , [place]. [place], [place], 882638481 tel:[phone] , [place] [id number] . tel: tel: [phone] OFFICE/OUTPAT [facility] Back Pain CervicalgiaChronic Feb-0 K angas Referring IENT VISIT, [facility] (chief pain syndromeLow 6-201 [place]. Provider: EST Pain [place] complaint) back 8 7235 [facility], painPostlaminectom Endy Lopez J, [address] y syndrome, not [place] 7235 [address] John, elsewhere is, [place], John, [place], classified [id number] [place], , [place]. [place], [place], 334793808 tel: [phone] , [place] [id number] . tel: tel: [phone] OFFICE/OUTPAT [facility] Back Pain CervicalgiaChronic K shlomo Referring IENT VISIT, [facility] (chief pain syndromeLow 8201 [place]. Provider: EST Pain [place] complaint) back 7 7235 [facility], painPostlaminectom John, Will J, [address] y syndrome, not [place] 7235 [address] John, elsewhere is, [place], John, [place], classified [id number] [place], , [place]. [place], [place], 822208335 tel:[phone] , US 31855511 . tel: tel: [phone] OFFICE/OUTPAT [facility] Back Pain CervicalgiaLow Kangiqra s Referring IENT VISIT, [facility] (chief back 0-201 [place]. Provider : EST Pain [place] complaint) painPostlaminectom 7 7235 [facility], y syndrome, not John, Will J, [address] elsewhere [place] 7235 [address] John, classified is, [place], John, Caterina, [id number] [place], , [place]. [place], [place], 976550304 tel: [phone] , [place] 89381130 . tel: tel: [phone] OFFICE/OUTPAT [facility] Back Pain Postlaminectomy Gonzalez as Referring IENT VISIT, [facility] (chief syndrome, not 9201 [place]. Pr ovider: EST Pain Caterina complaint) elsewhere 7 7235 [facility], classifiedLow back John, Will J, [address] painCervicalgia [place] [address] John, is, [place], John, [place], [id number] [place], , [place]. [place], [place], 293719883 tel: [phone] , US [id number] . tel: tel: [phone] OFFICE/OUTPAT [facility] Back Pain Low back May- Mario Ref erring IENT VISIT, [facility] (chief painCervicalgiaChr [place] . Provider: EST Pain [place] complaint) onic pain 7 7235 [facility], syndromePostlamine John, Endy J, [address] ctomy syndrome, [place] 7235 [address] John, not elsewhere is, [place], Caterina Lopez, classified [id number] [place], , [place], [place], 618240503 tel: [phone] , [place] 11986845 . tel: tel: [phone] OFFICE/OUTPAT [facility] Back Pain Low back March-3 Mario Ref erring IENT VISIT, [facility] (chief painCervicalgiaChr [place] . Provider: EST Pain [place] complaint) onic pain 7 7235 [facility], syndromePostlamine Endy Lopez J, [address] ctomy syndrome, [place] 7235 [address] John, not elsewhere is, [place]John [place], classified [id number] [place], , [place], [place], 399614842 tel: [phone] , US 34907371 . tel: tel: [phone] OFFICE/OUTPAT [facility] Back Pain Low back May-0 Mario Ref erring IENT VISIT, [facility] (chief painCervicalgiaChr [place] . Provider: EST Pain Caterina complaint) onic pain syndrome 7 7235 [facility], Endy Lopez J, [address] [place] 7235 [facility] John, is, [place], Caterina Lopez, [id number] [place], , [place]. [place], [place], 130834500 tel: [phone] , [place] [id number] . tel: tel: [phone] OFFICE/OUTPAT [facility] Back Pain CervicalgiaChronic Apr-0 K angas Referring IENT VISIT, [facility] (chief pain syndromeLow [place]. Provider: EST Pain Caterina complaint) back 7 7235 [facility], painPostlaminectom John, Endy J, [address] y syndrome, not [place] 7[address] John, elsewhere is, [place], Caterina Lopez, classified [id number] [place], , [place], [place], 849077823 tel:+ [phone] , US [id number] . tel: tel:[phone] OFFICE/OUTPAT [facility] Back Pain Low back Jan- Mario Ref erring IENT VISIT, [facility] (chief painCervicalgiaChr [place] . Provider: EST Pain [place] complaint) onic pain 7 7235 [facility], syndromePostlamine John, Endy J, [address] ctomy syndrome, [place] 7235 [address] John, not elsewhere is, [place]John [place], classified [id number] [place], , [place], [place], 277702588 tel: [phone] , [place] [id number] . tel: tel:[phone] OFFICE/OUTPAT [facility] Back Pain CervicalgiaLow Kanga s Referring IENT VISIT, [facility] (chief back painChronic [place]. Provider: EST Pain Caterina complaint) pain syndrome 7 7235 [facility], Endy Lopez J, [address] [place] 7235 [address] John, is, [place], Caterina Lopez, [id number] [place], , [place], [place], 679778737 tel: [phone] , US [id number] . tel: tel:[phone] OFFICE/OUTPAT [facility] Back Pain Low back Mario Ref erring IENT VISIT, [facility] (chief painCervicalgiaChr [place] . Provider: EST Pain Caterina complaint) onic pain syndrome 7 7235 [facility], John Will J, [address] [place] 7235 [address] John, is, [place], John, [place], [id number] [place], , [place]. [place], [place], 886698465 tel:[phone] , [place] [id number] . tel: tel: [phone] OFFICE/OUTPAT [facility] Back Pain Low back Dec-0 Mario Ref erring IENT VISIT, [facility] (chief painCervicalgiaPos 2 [place] . Provider: EST Pain [place] complaint) [facility]ctomy 6 [facility] syndrome, not John, Will J, [address] elsewhere [place] 7235 [address] John, classifiedChronic is, [place], John, Caterina, pain syndrome [id number] [place], , [place]. [place], [place], 481798700 tel:[phone] , US [id number] . tel: tel: [phone] OFFICE/OUTPAT [facility] Back Pain Low back Nov-0 Mario Ref erring IENT VISIT, [facility] (chief painCervicalgiaPos [place] . Provider: EST Pain Caterina complaint) [facility]ctomy 6 [facility], syndrome, not John, Will J, 7235 [address] elsewhere [place] 7[address] John, classified is, [place], John, [place], [id number] [place], , [place]. [place], [place], 658016369 tel:[phone] , US [id number] . tel: tel: [phone] OFFICE/OUTPAT [facility] Back Pain Lumbago with Aug- Van Referring IENT VISIT, [facility] (chief sciatica, left 4-201 [place] Provider: EST Pain Caterina complaint) sideLong term [address] [facility], (current) use of [address] Will J, [address] opiate John, [address] John, analgesicCervicalg [place], [place], [place], [place], [id number] [place], [place], [id number] , [place]. [address] , [place] tel: . tel: [phone] tel: [phone] OFFICE/OUTPAT [facility] Back Pain CervicalgiaLow Kanga s Referring IENT VISIT, [facility] (chief back [place]. Provider : EST Pain [place] complaint) painPostlaminectom 6 7235 [facility], y syndrome, not John, Will J, [address] elsewhere [place] [address] John, classified [place], [place], John [place], [id number] [place], , [place]. [place], [place], [id number] tel: [phone] , [place] [id number] . tel: tel: [phone] OFFICE/OUTPAT [facility] Back Pain Low back Mario Ref erring IENT VISIT, [facility] (chief painCervicalgiaPos [place] . Provider: EST Pain Caterina complaint) tlaminectomy 6 7235 [facility], syndrome, not John, Will J, [address] elsewhere [place] [address] John, classified [place], [place], [place] Caterina, [id number] [place], , [place]. [place], [place], [id number] tel: [phone] , [place] [id number] . tel: tel: [phone] OFFICE/OUTPAT [facility] Back Pain CervicalgiaLow Kanga s Referring IENT VISIT, [facility] (chief back painLumbago [place]. Provider: EST Pain [place] complaint) with sciatica, 6 7235 [facility], left side John, Will J, [address] [place] [address] John, [place], [place], [place], [place], [id number] [place], , [place]. [place], [place], [id number] tel: [phone] , [place] [id number] . tel: tel: [phone] OFFICE/OUTPAT [facility] Back Pain Low back Mario Ref erring IENT VISIT, [facility] (chief painCervicalgia [place]. Provider: EST Pain Caterina complaint) [address] [facility], John, Endy J, [address] [place] [address] John, [place], [place], Caterina Lopez, [id number] [place], , [place]. [place], [place], [id number] tel:[phone] , [place] [id number] . tel: tel:[phone] OFFICE/OUTPAT [facility] Back Pain CervicalgiaLow March- Kanga s Referring IENT VISIT, [facility] (chief back painLumbago 0- [place]. Provider: EST Pain [place] complaint) with sciatica, 6 [facility], left John, Endy Patel, [address] sidePostlaminectom [place] 7 [address] John, y syndrome, not is, [place], John, Caterina, elsewhere [id number] [place], classified , [place]. [place], [place], [id number] tel: [phone] , [place] [id number] . tel: tel:[phone] OFFICE/OUTPAT [facility] Back Pain Low back Apr-2 Amrio Ref erring IENT VISIT, [facility] (chief painCervicalgiaLum [place] . Provider: EST Pain [place] complaint) bago with 6 [facility], left Endy Lopez, [address] side [place] [address] John, [place], [place], Caterina Lopez, [id number] [place], , [place]. [place], [place], [id number] tel: [phone] , [place] [id number] . tel: tel:[phone] OFFICE/OUTPAT [facility] Back Pain Low back Apr-0 Mario Ref erring IENT VISIT, [facility] (chief painCervicalgia 6 [place]. Provider: EST Pain [place] complaint) 6 [facility], Endy Lopez, [address] [place] [address] John, is, [place], Caterina Lopez, [id number] [place], , [place]. [place], [place], [id number] tel: [phone] , [place] [id number] . tel: tel: [phone] OFFICE/OUTPAT [facility] Back Pain Low back Mar-2 Mario Ref erring IENT VISIT, [facility] (chief painCervicalgiaLum 5-201 [place] . Provider: NEW Pain [place] complaint) bago with 6 [address] [facility], sciatica, left John, Will J, [address] sideLong term [place] [address] John, (current) use of [place], [place], John, Caterina, opiate [id number] [place], analgesicPostlamin , [place]. [place], [place] , [id number] ectomy syndrome, tel: [phone] , [place] not elsewhere [id number] . tel: classified tel: [phone] Family History Family Member Type Diagnosis Age At Onset Mother Problem (finding) back pain Payers Payer name Insurance type Covered libertarian ID Authorization(s ) Medicare MB [id number] [employer] [facility] [id number] Social History Type Description Quantity Date Captured [...] due Goal UDT. Due on due Goal HALL WORKER Paperwork. Due on due Goal Weight. [...] Review Allergy List. Due on due Goal STRATEGY DIRECTOR Scanned. Due on due Goal Unhealthy drug [...] due Goal FIT. Due on due Goal STRATEGY DIRECTOR Scanned. Due on due Goal Hepatitis C screening. Due on Goal FIT-DNA. Due on due Goal OARS. Due on due Goal Weight. Due on due Goal Zoster vaccine (1st). Due on due Goal UDT. Due on due Goal ALT (SGPT). Due on d ue Goal HALL WORKER Paperwork. Due on due Goal CT-Colonography. Due [...] Order Annual PT. Due on due Goal HALL WORKER Paperwork. Due on due Goal STRATEGY DIRECTOR Scanned. Due on due Goal Height. Due [...] Goal Hepatitis C screening. Due on Goal STRATEGY DIRECTOR Scanned. Due on due Goal Unhealthy drug [...] due Goal FIT. Due on due Goal HALL WORKER Paperwork. Due on due Goal Hepatitis C screening. Due on du Goal Zoster vaccine (). Due on due Goal Lipid panel. Due on due Goal HALL WORKER Paperwork. Due on due Goal ALT [...] due Goal UDT. Due on due Goal STRATEGY DIRECTOR Scanned. Due on due Goal Medication Reconciliation. Due o n due Goal HALL WORKER Paperwork. Due on due Goal ALT (SGPT). Due on d ue Goal Unhealthy drug use screening. on due Goal FIT-DNA. Due on due Goal Creatinine. Due on d ue Goal Lipid panel. Due on due Goal STRATEGY DIRECTOR Scanned. Due on due Goal Tobacco Use. [...] Goal Update Social History. Due on Goal HALL WORKER Paperwork. Due on due Goal STRATEGY DIRECTOR Scanned. Due on due Goal AST (SGOT). [...] e Goal UDT. Due on due Goal STRATEGY DIRECTOR Scanned. Due on due Goal AST (SGOT). Due on d ue Goal OARS. Due on due Goal Height. Due on due Goal ALT (SGPT). Due on d ue Goal Order Annual PT. Due on due Goal Review Allergy List. Due on due Goal PHQ-9. Due on due Goal HALL WORKER Paperwork. Due on due Goal Tobacco Use. Due on due Goal Medication Reconciliation. Due o n due Goal Weight. Due on due Goal Medication Reconciliation. Due o n due Goal PHQ-9. Due on due Goal HALL WORKER Paperwork. Due on due Goal UDT. Due on due Goal AST (SGOT). Due on d ue Goal STRATEGY DIRECTOR Scanned. Due on due Goal OARS. Due [...] due Goal PHQ-9. Due on due Goal HALL WORKER Paperwork. Due on due Goal Order Annual PT. Due on due Goal OARS. Due on due Goal STRATEGY DIRECTOR Scanned. Due on due Goal ALT (SGPT). Due on d ue Goal AST (SGOT). Due on d ue Goal UDT. Due on due Goal Tobacco Use. Due on due Goal Medication Reconciliation. Due o n due Goal OARS. Due on due Goal STRATEGY DIRECTOR Scanned. Due on due Goal Update Social History. Due on Goal AST (SGOT). Due on d ue Goal Height. Due on due Goal Weight. Due on due Goal Order Annual PT. Due on due Goal ALT (SGPT). Due on d ue Goal PHQ-9. Due on due Goal UDT. Due on due Goal Review Allergy List. Due on due Goal HALL WORKER Paperwork. Due on due Goal AST (SGOT). Due on d ue Goal Review Allergy List. Due on due Goal ALT (SGPT). Due on d ue Goal UDT. Due on due Goal Tobacco Use. Due on due Goal Order Annual PT. Due on due Goal STRATEGY DIRECTOR Scanned. Due on due Goal Update Social History. Due on Goal Medication Reconciliation. Due o n due Goal OARS. Due on due Goal Height. Due on due Goal Weight. Due on due Goal PHQ-9. Due on due Goal HALL WORKER Paperwork. Due on due Goal Order Annual PT. Due on due Goal OARS. Due on due Goal Update Social History. Due on du e Goal AST (SGOT). Due on d ue Goal UDT. Due on due Goal Height. Due on due Goal ALT (SGPT). Due on d ue Goal HALL WORKER Paperwork. Due on due Goal STRATEGY DIRECTOR Scanned. Due on due Goal PHQ-9. Due [...] Goal Tobacco Use. Due on due Goal STRATEGY DIRECTOR Scanned. Due on due Goal HALL WORKER Paperwork. Due on due Goal AST (SGOT). Due on d ue Goal STRATEGY DIRECTOR Scanned. Due on due Goal Order Annual PT. Due on due Goal Tobacco Use. Due on due Goal Medication Reconciliation. Due o n due Goal Review Allergy List. Due on due Goal UDT. Due on due Goal Weight. Due on due Goal ALT (SGPT). Due on d ue Goal PHQ-9. Due on due Goal Height. Due on due Goal HALL WORKER Paperwork. Due on due Goal Update Social History. Due on Goal OARS. Due on due Goal Weight. Due on due Goal AST (SGOT). Due on d ue Goal Medication Reconciliation. Due o n due Goal ALT (SGPT). Due on d ue Goal Review Allergy List. Due on due Goal UDT. Due on due Goal Update Social History. Due on Goal STRATEGY DIRECTOR Scanned. Due on due Goal PHQ-9. Due on due Goal OARS. Due on due Goal Tobacco Use. Due on due Goal HALL WORKER Paperwork. Due on due Goal Height. Due on due Goal Order Annual PT. Due on due Goal Tobacco cessation counseling com pleted Goal Review Allergy List. Due on due Goal HALL WORKER Paperwork. Due on due Goal OARS. Due on due Goal Medication Reconciliation. Due o n due Goal Weight. Due on due Goal UDT. Due on due Goal Height. Due on due Goal Tobacco Use. Due on due Goal AST (SGOT). Due on d ue Goal Order Annual PT. Due on due Goal STRATEGY DIRECTOR Scanned. Due on due Goal Update Social History. Due on Goal PHQ-9. Due on due Goal ALT (SGPT). Due on d ue Goal UDT. Due on due Goal Medication Reconciliation. Due o n due Goal HALL WORKER Paperwork. Due on due Goal Update [...] due Goal Height. Due on due Goal STRATEGY DIRECTOR Scanned. Due on due Goal AST (SGOT). Due on d ue Goal STRATEGY DIRECTOR Scanned. Due on due Goal HALL WORKER Paperwork. Due on due Goal ALT [...] ALT (SGPT). Due on d ue Goal HALL WORKER Paperwork. Due on due Goal UDT. Due on due Goal AST (SGOT). Due on d ue Goal Medication Reconciliation. Due o n due Goal Weight. Due on due Goal Height. Due on due Goal PHQ-9. Due on due Goal STRATEGY DIRECTOR Scanned. Due on due Goal Tobacco Use. [...] ANALYSIS , URINE, WITH Ordered MED REPORT (85631), Ordered on: Future Order: Lab Order Drug Test Def 22+ [address] (G0483), Ordered Ordered on: Future Order: Lab Order Drug Test Def 22+ [address] (G0483), Ordered Ordered on: Future Order: Lab Order COMPLIANCE DRUG ANALYSIS , URINE, WITH Ordered MED REPORT ([id number]), Ordered on: Future Order: Lab Order MRSA/MSSA Screening ([id number] 112), Ordered Ordered on: Future Order: Lab Order COMPLIANCE DRUG ANALYSIS , URINE, WITH Ordered MED REPORT ([id number]), Ordered on: History Of Present Illness Encounter [...] her L sydni ulder on 12/30/21 with [facility] in order for infection to clear. Additional [...] h er L shoulder on 12/30/21 with [facility] in order for in fection to clear. [...] to her Yomi mann on 12/30/21 with [facility] in order for infection to clear. Additional [...] her L sydni ulder on 12/30/21 with [facility] in order for infection to clear. Additional [...] to her L shoulder on 12/30/21 with [facility] in order for infection to clear. Additional [...] or hardware removal surgery on 12/30/21 with [facility] in order for infection to clear. Will [...] is scheduled for hardware removal surgery in [place] with [facility] in order for infection to ca ar. [...] for hardware removal surgery in December with [facility] in order for in fection to clear. [...] L side weakness -- was treated by [facility] ic. Was put on Warfarin, unsure if it can be held for sinus surgery or SCS revision.[facility]resents [facility]3 oxycodone 5mg -- on track. Reports [...] and enroll ed in a program through [facility]. She also not es of increasing symptoms [...] to refill her medications. She will call [facility] if sh e has any questions [...] injury pain. She is going in again tomal row to decide what to do. She [...] mo re headaches. She was seen by [facility] who told her she has a screw loose. She was referred to Dr. Gonzalez at [facility]. She has not heard from t hem. [...] tomorrow. She said s he will get [place] for 4-5 days maximum followi ng the [...] and states it aggrevated her pain. [facility] continues to be effective for reduci ng her pain. She will be completing diagnosti c injections today through [facility]. No other concerns [...] #1 Oxycodone, surplus. She was hospitalized in [place] about a w [place] ago for her back pain. She is having an epd iural steroid injection done at [facility] tomorrow. She isn't sure how well the [...] neck surgery. ENT referred her to an cask maker for additional evaluation. No other concerns today. [...] Patient completed right shou lder imaging at [facility] and reports a tear. She plans [...] will be undergoing a Cervical Fusion with [facility]. She will be following up with [facility] [...] [facility] She has noticed increased restlessne ss [...] re ferred by Dr. Amna Fletcher from [facility]. Angie is here today for her initial consult regarding her back, neck and knee pain which bega n years ago and has been aggrevated from [facility]. She had a lumbar fusion in the past. She also has underwent several neck surgeri es including a cervical fusion and plans to have additional surgery done by Dr. Rodriguez at [facility]. She also has a history [...] regul christian. She recently moved back to [place] from [place]. No ot her concerns today. Medical records:Dr. Rodriguez at [facility] Ortho - neck surgeon Dr. Amna Fletcher a t [facility] - PCP recordsPast treatmen t:SABAS - [...] History of migraines. Consider Botox inj ections impression History of widespread osteoarthritis. Au assessment Osteoarthritis impression History of bilateral shoulder pain. Inje ctions through [facility] without significant relief. L shoulder r eversal surgery completed 10/27/2020. Additional hardwar e removal surgery through [facility] completed 12/30/21. Another s urgery to replace [...] Last UDT resul ts reviewed and [facility] for [...] anced the patient's quality of life. assessment superintendent terminal (current) use of opiate analge sic Mental Status Date Cognitive Assessment Orientation - Oriented to ti me, place, person, situation.Normal Orientation Patient Care Teams Name Effective Dates (start - stop) Status M embers No Information
--- OUTSIDE RECORDS SUMMARY | 2022-08-14 18:01 | XMS_ITS | Encounter Summary ---
:1965 [facility] Address [address] [place] [address] Care Team Providers Name Role Phone Jose Hodlen MD Primary Care Provider [phone] Encounter Details Date Type Department Care Team [...] HEAD 11/10/2018 12:00 AM Results for this ALUMINA PLANT SUPERVISOR procedure are i n the results section . documented in this encounter Results CT HEAD (11/10/2018 12:00 AM ALUMINA PLANT SUPERVISOR) Anatomical Region Laterality Modality Other Specimen (Source) Anatomical Location Collection Method / Collectio n Time Received Time / Laterality Volume 11/10/2018 Narrative This result has an attachment that is no t available. Phy No Primary/Referring DUMMY/OTHER/AR documented in this encounter Visit Diagnoses Not on filedocumented in this encounter Care Teams Electric Range Servicer Relationship Specialty Start Date End Date Jose Holden MD PCP - General Otolaryngology 12/14/17 [place] [address] documented as of this encounter
--- OUTSIDE RECORDS SUMMARY | 2022-08-14 18:05 | XMS_ITS | Encounter Summary ---
:1965 Author Organization [facility] Address [address] [place] [address] Care Team Providers Name Role Phone Elsewhere, Pcp Primary Care Provider Unavailable Reason for Visit Reason Comments OPAT Normal Labs Encounter Details Date Type Department Care Team Description 01/15/2022 Clinical Communication Section of Madhav Rizo (Normal Labs) Infectious Diseases M, M.P.H., in [address] [place] [phone] Social History Tobacco Use Types Packs/Day Years [...] you attend amish or Patient refused 2021 spiritism services? Do [...] Rizo M.P.H., R.N. - 01/15/2022 3:24 PM KNOT TIER OPAT NOTE Infusion Provider: Dennis [facility], phone: [phone], fax: [phone] Labs and site care at [facility], phone: [phone] Antimicrobial(s) currently prescribed: See Med List Hyperlink in note Firm stop date: 02/11/22 Lab results from 01/14/2022 are viewable in the MCR record--listed as External Labs (received via fax, which has been uploaded to Document Viewer/Media) Interpretation and action: The labs were satisfactory and acceptable. No change in plan as per OPAT Practice Guideline. TIER documented in this encounter Plan of Treatment Upcoming Encounters Date Type Specialty Care Team Description 09/01/2022 Clinical Communication Admitting/Central Scheduling 09/06/2022 Appointment Radiology Alfredo Herrera O.PEmilioC. [address] [place] [phone] 09/06/2022 Office Visit Orthopedic Surgery Cyrus Polk M.D. [address] [place] [address] documented as of this encounter Procedures Procedure [...] Signature EXT ALT 14 4 - 35 [facility] Specimen (Source) Anatomical Location Collection Method / Collectio n Time Received Time / Laterality Volume Blood (Blood, Venous) Laly Ward APRN, R.N. LAB BLOOD ADD-ON Performing Organization Address City/[facility]/ZIP Code Phon e Number [facility] [address] [place] [address] Creatinine with Estimated GFR (01/14/2022) athologist [facility] EXT Creatinine 0.6 0.5 - 1.5 [place] mg/dL [facility] Specimen (Source) Anatomical Location Collection Method / Collectio n Time Received Time / Laterality Volume Blood (Blood, Venous) Laly Ward APRN, R.N. LAB BLOOD ADD-ON Performing Organization Address City/State/ZIP Code Phon e Number [facility] [address] [place] [address] (ABNORMAL) CBC with Differential, Blood (01/14/2022) athologist Signature EXT Platelet 406 150 - 450 [facility] EXT Hemoglobin 9 (A) 12 - 15.5 [facility] EXT Absolute 3.49 1.7 - 7 [facility]ATORY EXT White Blood 5.7 5.0 - 10.0 [place] Cell (WBC) Count HOSPITAL [facility] Specimen (Source) Anatomical Location Collection Method / Collectio n Time Received Time / Laterality Volume Blood (Blood, Venous) Narrative This result has an attachment that is no t available. Laly Ward APRN, R.N. LAB BLOOD ADD-ON Performing Organization Address City/State/ZIP Code Phon e Number [facility] [address] [place] [address] documented in this encounter Visit Diagnoses Not on filedocumented in this encounter Additional Health Concerns Assessment Noted Time PHQ-9 Depression Total Score: 16 02/11/2021 12:00 AM C DT documented as of this encounter Care Teams Panama Hat Smearer Relationship Specialty Start Date End Date Elsewhere, Pcp PCP - General Family Medicine 12/25/21 documented as of this encounter
[2022-08-14] MEDS: KETOROLAC 30 MG/ML inj IVP (18:38)
--- NOTE | 2022-08-14 19:15 | ED_ITS ---
HPI - General Adult General Chief complaint: Shoulder Injury/Pain Stated complaint: RT KNEE,LEFT SHOULDER PAIN Time Seen by Provider: 08/14/22 16:30 History of Present Illness HPI narrative: Angie is a 57yo female patient who is well-known to the ED staff that presents to the ED via POV for complaints of left shoulder and right knee pain. The patient reports that she had a fall approximately 4-months prior. After which, she was evaluated and treated in the emergency department. She states she is now out of her chronic medications including cannabis and is having severe pain. She acknowledges that she has a pain contract with Dr. Blackwell and the pain clinic. However, she states both of them allow her to have additional fills of medication when she is having severe acute pain. She denies new acute injury, but states she has been falling ?a lot? due to severely uncontrolled pain. She denies chest pain, shortness a breath, and abdominal pain. She denies nausea, vomiting, or diarrhea. She denies burning with urination. She reports chronic numbness and weakness. Related Data Home Medications Medication Instructions Recorded Confirmed cholecalciferol (vitamin D3) 125 5,000 unit PO DAILY 06/07/22 08/04/22 mcg (5,000 unit) tablet cyanocobalamin (vitamin B-12) 5,000 mcg PO DAILY 06/07/22 08/04/22 2,500 mcg tablet esomeprazole magnesium 40 mg 40 mg PO DAILY 06/07/22 08/04/22 capsule,delayed release magnesium gluconate 27.5 mg 27.5 mg PO DAILY 06/07/22 08/04/22 magnesium (500 mg) tablet oxycodone 5 mg tablet 5 mg PO QID 06/07/22 08/04/22 ropinirole 2 mg tablet 2 mg PO .Bedtime 06/07/22 08/04/22 diclofenac sodium 1 % topical gel 2 g topical 07/22/22 08/04/22 Previous Rx's Medication Instructions Recorded acetaminophen 650 mg 1,300 mg PO .Every 8 Hours #180 06/08/22 tablet,extended release tabs lamotrigine 200 mg tablet 200 mg PO BID #60 tabs 06/08/22 valacyclovir 500 mg tablet 500 mg PO DAILY cold sores #90 tabs 06/14/22 albuterol sulfate 90 mcg/actuation 2 puff inhalation Q6H PRN 07/23/22 aerosol inhaler (Ventolin HFA) shortness of breath or wheezing #8.5 grams aspirin 81 mg tablet,delayed 81 mg PO QDAY #90 tabs 07/23/22 release bupropion HCl 300 mg 24 hr tablet, 300 mg PO QDAY #90 tabs 07/23/22 extended release cetirizine 10 mg tablet (Zyrtec) 10 mg PO QDAY #90 tabs 07/23/22 pregabalin 150 mg capsule 150 mg PO BID #120 caps 07/23/22 pregabalin 300 mg capsule 300 mg PO BID #120 caps 07/23/22 quetiapine 50 mg tablet 50 mg PO .Bedtime sleep #30 tabs 07/23/22 rizatriptan 10 mg tablet 10 mg PO ONCE PRN migraine 07/23/22 headache #10 tabs sumatriptan 5 mg/actuation nasal 5 mg intranasal ONCE PRN migraine 07/23/22 spray headache #6 ea tizanidine 4 mg tablet 4 mg PO Q8H PRN muscle spasticity 07/23/22 #30 tabs diazepam 5 mg tablet (Valium) 5 mg PO BID PRN anxiety #60 tabs 08/04/22 amitriptyline 25 mg tablet 25 mg PO DAILY #30 tabs 08/14/22 Allergies Allergy/AdvReac Type Severity Reaction Status Date / Time acyclovir Allergy Mild rash Verified 08/04/22 11:18 shingles like benzoin Allergy Mild rash, Verified 08/04/22 11:18 blisters, itching Cephalosporins Allergy Mild Rash Verified 08/04/22 11:18 penicillin V Allergy Mild Rash Verified 08/04/22 11:18 adhesive Allergy Unknown contact Verified 08/04/22 11:18 dermatitis to tape amoxicillin Allergy Unknown Rash Verified 08/04/22 11:18 baclofen Allergy Unknown Rash Verified 08/04/22 11:18 cefaclor Allergy Unknown Rash Verified 08/04/22 11:18 chlorhexidine Allergy Unknown contact Verified 08/04/22 11:18 dermatitis fentanyl Allergy Unknown Hallucinati Verified 08/04/22 11:18 ng gabapentin Allergy Unknown muscular Verified 08/04/22 11:18 twitch, slurred speech nortriptyline Allergy Unknown Palpitation Verified 08/04/22 11:18 s NSAIDS (Non-Steroidal Allergy Unknown gastric Verified 08/04/22 11:18 Anti-Inflamma bypass silver Allergy Unknown contact Verified 08/04/22 11:18 dermatitis Milk solids Allergy Intermediate Vomiting Uncoded 08/04/22 11:18 RACHEL Allergy Mild rash Uncoded 08/04/22 11:18 needing early removal Pollen Allergy Unknown runny nose Uncoded 08/04/22 11:18 Soy Allergy Allergy Unknown Uncoded 08/04/22 11:18 Sulfamethoxazole / Allergy Unknown nausea, GI Uncoded 08/04/22 11:18 trimethoprim upset dermbond AdvReac Unknown contact Uncoded 08/04/22 11:18 dermatitis Review of Systems Status of ROS: Reports: 10 or more systems reviewed and unremarkable except as noted in History and below Narrative: General: No fever, chills or sweats. Denies change of appetite. Reports fatigue. Psychiatric: Denies depression and anxiety. HEENT: Denies upper respiratory symptoms such as sore throat, ear pain, nasal drainage or headache. Neurologic: Numbness, tingling and weakness - chronic. Balance and gait with decreased baseline 2/2 chronic complaints and sedation. Cardiovascular: Denies chest pain, palpitations. Pulmonary: Denies shortness of breath or cough. Gastrointestinal: Denies nausea, vomiting, diarrhea and constipation. Denies abdominal pain, heartburn, or belching. : Denies dysuria, urinary frequency, urinary hesitancy, or urinary urgency. Musculoskeletal: See HPI. Reports arthralgias, myalgias, and decreased range of motion. SKIN: Denies pruritus, rash, skin problems. [facility] Medical History Allergic rhinitis Ataxia due to cerebrovascular disease Bipolar II disorder Cerebral arteriosclerosis with history of previous cerebrovascular accident Chronic back pain Chronic neck pain Chronic obstructive pulmonary disease Continuous opioid dependence (08/27/16) Cyclothymic disorder Fibromyalgia ELLEN (generalized anxiety disorder) Herpes labialis History of cerebrovascular accident Migraine Neuropathy associated with polyneuropathy, organomegaly, endocrinopathy, monoclonal gammopathy, and skin changes syndrome Nicotine dependence Polypharmacy Posttraumatic stress disorder Pyogenic arthritis of left shoulder region (03/25/21) Restless legs syndrome 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) Surgical History History of abdominoplasty History of arthroplasty of both knees History of bilateral cataract extraction History of carpal tunnel release of both wrists (2017) History of cholecystectomy History of foot surgery History of gastric bypass (1999) History of left shoulder replacement History of mastopexy History of neck surgery History of nevus excision History of sinus surgery History of spinal surgery History of total hysterectomy with bilateral salpingo-oophorectomy (BSO) History of tubal ligation Status post insertion of spinal cord stimulator Family History Family/Other Breast cancer Lung cancer Father Cancer Coronary artery disease Sister Congenital heart defect Mother Pancreatic cancer, Onset Age: 60 Social History Narrative: medical marijuana use chronic narcotic use tobacco use Smoking Status: Former smoker What tobacco products do you use: cigarettes Smoking quit date/years: <= 15 years ago Do you use any of these nicotine containing products: None Second hand tobacco smoke exposure: No How often do you have a drink containing alcohol: never How often do you have six or more drinks on one occasion: Never AUDIT-C Alcohol total score: 0 Non-prescribed substance use: marijuana (any form) service: No Exam Const: Vital Signs, click to edit/add: Vital Signs - 24 hr 08/14/22 16:12 Temperature 98.0 F Pulse Rate [Right Pulse Oximeter] 93 Respiratory Rate 18 Blood Pressure [Ri ght Upper Arm] 127/77 Pulse Oximetry 96 Oxygen Delivery Me thod Room Air Documenting provider has reviewed patient's vital signs: yes Common normals: no apparent distress, oriented x3 and well nourished General appearance: cooperative, comfortable and well developed; not in distress Nutritional appearance: obese Orientation/consciousness: Yes awake, Yes oriented to person and Yes oriented to place HENMT: Common normals: normocephalic, head/scalp atraumatic and hearing grossly normal bilaterally Head and scalp: normocephalic and atraumatic Face and sinus: normal facial exam (within limits of masking) Eye: Common normals: EOMs intact bilaterally General eye: normal appearance of both eyes Resp: Common normals: normal respiratory effort, no retractions, no use of accessory muscles and clear to auscultation bilaterally Effort & inspection: able to speak in complete sentences Auscultation: clear to auscultation bilaterally Cardio: Common normals: regular rate, regular rhythm, S1 normal heart sound and S2 normal heart sound Rate: regular rate Rhythm: regular rhythm Heart sounds: S1 normal and S2 normal Extremity: Common normals: normal to inspection (h/o surgery with healed scars noted) and no clubbing, cyanosis or edema Left upper extremity: shoulder joint (tender to palpation with h/o fracture, nondisplaced (prev noted)) Right lower extremity: knee joint (pain to palpation without erythema, induration, or edema) Neuro: Common normals: oriented x3, moves all extremities, no focal motor deficits and no sensory deficits noted Sensorium/orientation: awake, oriented to person, oriented to place and other (slurred speech during history; easily awakened for exam) Sensory exam: double simultaneous stimulation for sensation normal Motor exam: no movement abnormalities noted Psych: Common normals: mental status grossly normal, thought process normal and activity/motor behavior normal Appearance: grossly normal Attitude: calm Activity/motor behavior: psychomotor slowing Speech: slurred (patient appears intoxicated with medications as noted) Thought process: normal thought process Thought content: normal thought content Attention/concentration: attention grossly intact Memory/cognition: memory grossly intact Insight: insight good Judgement: judgment good Skin: Common normals: no rashes or lesions noted General skin exam: no rashes or lesions noted Course Course Hospital Course: Angie presented to the ED without acute injury or trauma, but well-documented history of chronic pain for additional medications. We discussed pain contracts and the importance of not overprescribing a patient medication. We did perform additional XRs due to frequent falls. She has no acute fracture or dislocation. She is encouraged to use her medications as prescribed. She requests a knee brace, but is frustrated that our options are knee immobilizer this evening. She is offered amitriptyline to assist with chronic pain plan. She is agreeable to take this medication and a prescription is sent to the pharmacy for her to collect. Reevaluation(s) Reevaluation #1: On discharge, Angie requested reexplanation of the discharge summary which I explained after her images returned. She had to be awakened each time with the television at max volume. After rediscussion, she verbalized understanding and was subsequently discharged. Vital Signs Vital signs: Initial Vital Signs Temperature 98.0 F 08/14/22 16:12 Temperature Source Temporal Artery Scan 08/14/22 16:12 Pulse Rate 93 08/14/22 16:12 Respiratory Rate 18 08/14/22 16:12 Blood Pressure 127/77 08/14/22 16:12 Blood Pressure Mean 93 08/14/22 16:12 Blood Pressure Position Sitting 08/14/22 16:12 Pulse Oximetry 96 08/14/22 16:12 Oxygen Delivery Method 08/14/22 16:12 Vital Signs Temperature 98.0 F 08/14/22 16:12 Pulse Rate 93 08/14/22 16:12 Respiratory Rate 18 08/14/22 16:12 Blood Pressure 127/77 08/14/22 16:12 Pulse Oximetry 96 08/14/22 16:12 Oxygen Delivery Method 08/14/22 16:12 Temperature 98.0 F 08/14/22 16:12 Pulse Rate 93 08/14/22 16:12 Respiratory Rate 18 08/14/22 16:12 Blood Pressure 127/77 08/14/22 16:12 Pulse Oximetry 96 08/14/22 16:12 Oxygen Delivery Method 08/14/22 16:12 Medical Decision Making MDM Narrative Medical decision making narrative: Differential diagnoses considered include: sprain and strain, contusion, nerve root entrapment, radiculopathy, muscle spasm, dislocation, and fracture. Other differentials include ligament or tendon injury/damage, vascular or nerve damage. Discharge Plan Discharge Clinical Impression: Chronic pain of right knee, Chronic left shoulder pain, Continuous opioid dependence Patient Disposition: Home, Self-Care Condition: Improved Instructions: Pain Management in Older Adults (DC) Additional Instructions: Thank you for choosing [facility] for your care today. Take pain medication as prescribed. Use RICE - rest, ice, compression, and elevation - as needed for symptom control. I recommend following up with your primary physician in 1-2wks if a significant improvement of symptoms is not noted. Continue routine activity as tolerated. You may consider topical medications including capsaicin or lidocaine patches to assist with symptom control. You have been written for amitryptyline to add to your alternative pain management plan of care. Please pick it up. If you believe it improves your discomfort, discuss with your primary for additional refills. If new or worsening symptoms develop or you have any concerns in the meantime, please call your primary care clinic or return to the ER for re-evaluation. Activity Level: Activity as Tolerated Discharge Diet: Regular Prescriptions: New amitriptyline 25 mg tablet 25 mg PO DAILY Qty: 30 2RF No Action esomeprazole magnesium 40 mg capsule,delayed release(DR/EC) 40 mg PO DAILY ropinirole 2 mg tablet 2 mg PO .Bedtime magnesium gluconate 27.5 mg magne- sium (500 mg) tablet 27.5 mg PO DAILY cholecalciferol (vitamin D3) 125 mcg (5,000 unit) tablet 5,000 unit PO DAILY cyanocobalamin (vitamin B-12) 2,500 mcg tablet 5,000 mcg PO DAILY oxycodone 5 mg tablet 5 mg PO QID diclofenac sodium 1 % gel 2 g topical diazepam [Valium] 5 mg tablet 5 mg PO BID PRN (Reason: anxiety) Qty: 60 0RF lamotrigine 200 mg tablet 200 mg PO BID Qty: 60 12RF acetaminophen 650 mg tablet extended release 1,300 mg PO .Every 8 Hours Qty: 180 12RF valacyclovir 500 mg tablet 500 mg PO DAILY Qty: 90 3RF aspirin 81 mg tablet,delayed release (DR/EC) 81 mg PO QDAY Qty: 90 3RF bupropion HCl 300 mg tablet extended release 24 hr 300 mg PO QDAY Qty: 90 3RF cetirizine [Zyrtec] 10 mg tablet 10 mg PO QDAY Qty: 90 3RF pregabalin 150 mg capsule 150 mg PO BID Qty: 120 2RF Rx Instructions: Total dose 450 mg BID pregabalin 300 mg capsule 300 mg PO BID Qty: 120 2RF Rx Instructions: Total dose 450 mg BID albuterol sulfate [Ventolin HFA] 90 mcg/actuation HFA aerosol inhaler 2 puff inhalation Q6H PRN (Reason: shortness of breath or wheezing) Qty: 8.5 2RF quetiapine 50 mg tablet 50 mg PO .Bedtime Qty: 30 5RF rizatriptan 10 mg tablet 10 mg PO ONCE PRN (Reason: migraine headache) Qty: 10 5RF Rx Instructions: TAKE ONE TAB AT ONSET OF HEADACHE, MAY REPEAT Q2H PRN, MAX 30 MG/24 HRS sumatriptan 5 mg/actuation spray,non-aerosol 5 mg intranasal ONCE PRN (Reason: migraine headache) Qty: 6 5RF Rx Instructions: 1-2 SPRAYS IN ONE NOSTRIL AT ONSET OF HEADACHE, MAY REPEAT Q2H PRN, MAX 4 SPRAYS/24 HRS tizanidine 4 mg tablet 4 mg PO Q8H PRN (Reason: muscle spasticity) Qty: 30 0RF Follow Up/Referrals: Clemente Blackwell MD [Primary Care Provider] - Stand Alone Forms: [facility] Info Instructions
--- NOTE | 2022-08-14 19:45 | ED.NURSE ---
While completing discharge teaching with Angie she requested orthopedic device for her knee. Offered to wrap knee in peter bandage and encouraged her to request help from PT or OT for a different device.
--- NOTE | 2022-08-14 21:18 | ED.NURSE ---
Called RX into [facility] in [place].
== END 2022-08-14 20:35 | disposition home or self-care (01) ==
PROVIDERS: Emergency Provider Family Medicine; PCP Family Medicine
DX: M25.512 Pain in left shoulder (principal); F11.20 Opioid dependence, uncomplicated; M25.561 Pain in right knee
CPT/HCPCS: 73030; 73562; 96374; 99283; 99284; J1885

== ENCOUNTER 2022-08-15 17:00 | Outpatient (CLI) | payer MEDICARE, OTHER, SELFPAY ==
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
--- OUTSIDE RECORDS SUMMARY | 2022-09-14 11:52 | XMS_ITS | Encounter Summary ---
:1965 Author Organization [place] Address [address] [place] [address] Care Team Providers Name Role Phone [facility] Primary Care Provide r Encounter Details Date [...] filedocumented in this encounter Care Teams Residential Support Worker Relationship Specialty Start Date End Date [facility] PCP - General 06/03/171999 [place] [address] documented as of this encounter
--- OUTSIDE RECORDS SUMMARY | 2022-09-14 11:52 | XMS_ITS | Encounter Summary ---
:1965 Author Organization [place] Address [address] [place] [address] Care Team Providers Name Role Phone [facility], [facility] Primary Care Provide r Encounter Details Date Type Department Care Team Description [facility] ProviderAlea Social History Tobacco [...] on filedocumented in this encounter Care Teams Nicking Machine Operator Relationship Specialty Start Date End Date [facility] PCP - General 06/03/171999 [place] [address] documented as of this encounter
--- OUTSIDE RECORDS SUMMARY | 2022-09-14 11:52 | XMS_ITS | Encounter Summary ---
:1965 Author Organization [place] Address [address] [place] [address] Care Team Providers Name Role Phone Clinic, [facility] Primary Care Provider [phone] Reason for Visit Reason Comments Fall Encounter Details Date Type Department Care Team Description 05/17/2017 [facility]; [facility] Emergency Dep t [facility] Shoulder strain, unspecified laterality, initial encounter [address] [place] [place] [address] [place] [address] [place] [address] [place], [place] [address] (Wo rk) Social History Tobacco Use Types [...] contain Tylenol?? (acetaminophen), including Vicodin??, Tylenol #3??, Plymouth??, Lortab??, and Percocet??. You should not take [...] contain Tylenol?? (acetaminophen), including Vicodin??, Tylenol #3??, [place]??, Lortab??, and Percocet??. You should not take [...] neck fusion Reports taking tylenol 2 hrs FAMILY SERVICES COORDINATOR Jose Guadalupe Betancourt MD - 05/17/2017 7:20 [...] Surgical History: Abdomen surgery Back surgery Cholecystectomy DEODORIZER OPERATOR surgery Orthopedic Surgery Family History: History [...] I spoke with Dr. Davis of the [facility] regarding patient's presentation, findings, [...] and the provider's statements to me. 05/17/2017 [facility] EMERGENCY DEPARTMENT Jose Guadalupe Betancourt MD 05/18/17 [...] grams documented in this encounter Care Teams Call Out Clerk Relationship Specialty Start Date End Date [facility], [facility] PCP - General 05/17/17 06/02/[address] [place] [address] documented as of this encounter
--- OUTSIDE RECORDS SUMMARY | 2022-09-14 11:52 | XMS_ITS | Encounter Summary ---
:1965 Author Organization [place] Address [facility] [place] [address] Care Team Providers Name Role Phone Clinic, [facility] Primary Care Provide r Reason for Visit Auth/Cert Specialty Diagnoses / Procedures Referred By Contact Refer red To Contact Surgery Diagnoses URGE AND STRESS INCONTINENCE,FEMALE STRESS INCONTINENCE Sh Periop Services Procedures CYSTOSCOPY, SLING TRANSVAGINAL [address] [place] [address] Phone: Referral ID Status Reason Start Date Expiration Date Visits Requ ested Visits Authorized [id number] 1 1 Encounter Details Date Type Department Care Team Description 10/14/2017 Anesthesia Event [facility] SruthiEri rosa MD [facility] ANESTHESIA [address] [address] [facility] PeriOP Gayatri Combs, LEAD RELAY TESTER POWER SAW OPERATOR [address] [address] Services [address] [place] [address] Anesthesia Record Procedure Summary Procedure Name [...] Gayatri Combs, Vicki Collins D, Injectable; Tolerated POWER SAW OPERATOR RN well Retired Non-Surgical 10/14/17; 1254; Easy; 10/14/17 1254 by 09/28 06/13 1328 by Airway Intravenous; 4; mm; Gayatri Combs, Gayatri Poe, laryngeal mask airway; POWER SAW OPERATOR LEAD RELAY TESTER POWER SAW OPERATOR midline; Equal, clear and bilateral; POWER SAW OPERATOR; hh Urethral Catheter 10/14/17; 1314; No; 10/14/17 1314 by 10/14/17 1316 by /GI/FEED PROJECT ENGINEER Pelvic Usha Bar, Carole Duff, Procedure; 16 [...] MD October 14, 2017 1:50 PM T OF APPEALS JUDGE Anesthesia Preprocedure Evaluation - Mini Negro MD [...] ??? Acyclovir Rash ??? Cephalosporins Rash ??? Ulster Rash Past Medical History: Diagnosis Date ??? Fibromyalgia, primary ??? Migraine ??? Osteoporosis ??? Restless leg ??? Stress incontinence ??? Uncomplicated asthma Past Surgical History: Procedure Laterality Date ??? ABDOMEN SURGERY ??? BACK SURGERY ??? CHOLECYSTECTOMY ??? FEED PROJECT ENGINEER SURGERY ??? ORTHOPEDIC SURGERY Social History Substance [...] (Takes 2 x 5000 unit tablet = 81220 unit dose) Yes Reported, Patient Esomeprazole Magnesium [...] Yes Reported, Patient naloxone (NARCAN) nasal spray Vinson 4 mg into one nostril alternating nostrils [...] Reported, Patient Current Facility-Administered Medications Ordered in [facility] Medication Dose Route Frequency Last Rate Last Dose ??? Provider ordered ALTERNATE pre op antibiotic. 1 each As instructed Continuous ??? ciprofloxacin (CIPRO) infusion 400 mg 400 mg Intravenous Pre-Op/Pre-procedure x 1 dose No current [facility]-ordered outpatient prescriptions on file. ??? Another [...] GLC, BUN, CR, ROGER in the last 33425hpmgj. No results for input(s): AST, ALT, ALKPHOS, BILITOTAL, LIPASE in the last 70721 hours. No results for input(s): WBC, HGB, PLT in the last 79462 hours. No results for input(s): ABO, RH in the last 09111 hours. No results for input(s): INR, PTT in the last 73424 hours. No results for input(s): TROPI in the last 53478 hours. No results for input(s): PH, PCO2, PO2, HCO3 in the last 58407 hours. No results for input(s): HCG in the last 69111 hours. No results found for this or any previous visit (from the past 744 hour(s)). RECENT LABS: ECG: ECHO: T OF APPEALS JUDGE documented in this encounter Miscellaneous Notes Anesthesia [...] (Last set prior to Anesthesia Care Transfer) POWER SAW OPERATOR VITALS 10/14/2017 1258 - 10/14/2017 1334 10/14/2017 Pulse: 85 SpO2: 99 % Resp Rate (observed): 8 Resp Rate (set): 10 Electronically Signed By: Gayatri Combs APRN POWER SAW OPERATOR October 14, 2017 1:34 PM T OF APPEALS JUDGE documented in this encounter Plan of Treatment Not on filedocumented as of this encounter Visit Diagnoses Not on filedocumented in this encounter Administered Medications Inactive Administered Medications - up to 3 most recent administrations Medication Order MAR Action Action Date Dose Rate Site ciprofloxacin (CIPRO) infusion Given 10/14/2017 12:[address] OF APPEALS JUDGE 400 mg 400 mg Routine, 400 mg, Intravenous, PRE-OP/PRE-PROCEDURE, Starting on Tue10/14/17 at 1155, For 1 dose, Irritant., Indications: Perioperative Pharmacoprophylaxis, Pre-procedure New Bag 10/14/2017 12:[address] OF APPEALS JUDGE 400 mg dexamethasone (DECADRON) injection Given 10/14/2017 1:[address] OF APPEALS JUDGE 4 mg PRN, Administer over 1 Minutes, Starting on Tue10/14/17 at 1303, Anesthesia Intra-op dexmedetomidine (PRECEDEX) 4 mcg/mL bolu s Bolus 10/14/2017 1:[address] OF APPEALS JUDGE 8 mcg 200 mcg, CONTINUOUS PRN, Starting on Tue10/14/17 at 1305, Anesthesia Intra-op New Bag 10/14/2017 1:[address] OF APPEALS JUDGE 12 mcg fentaNYL (PF) (SUBLIMAZE) injection Given 10/14/2017 12:[address] OF APPEALS JUDGE 100 mcg PRN, moderate to severe pain, Administer over 3-5 Minutes, Starting on Tue10/14/17 at 1252, Anesthesia Intra-op lactated ringers infusion New Bag 10/14/2017 12:[address] OF APPEALS JUDGE Intravenous, CONTINUOUS PRN, Anesthesia Intra-op, Starting on Tue10/14/17 at 1251, Until Tue10/14/17 at 1334 lidocaine injection 2% (MDV) Given 10/14/2017 12:[address] OF APPEALS JUDGE 80 mg PRN, Starting on Tue10/14/17 at 1252, Anesthesia Intra-op midazolam (VERSED) injection Given 10/14/2017 12:[address] OF APPEALS JUDGE 2 mg Administer over 2 Minutes, PRN, anxiety, Starting on Tue10/14/17 at 1251, Anesthesia Intra-op ondansetron (ZOFRAN) injection Given 10/14/2017 1:[address] OF APPEALS JUDGE 4 mg PRN, nausea, vomiting, Administer over 2-5 Minutes, Starting on Tue10/14/17 at 1303, Anesthesia Intra-op propofol (DIPRIVAN) infusion Rate/Dose 10/14/2017 1:14 150 mcg/kg/min 66.5 mL/hr Intravenous, CONTINUOUS PRN, Change PM COURT OF APPEALS JUDGE Starting on Tue10/14/17 at 1252, Anesthesia Intra-op New Bag 10/14/2017 12:[address] OF APPEALS JUDGE 200 mcg/kg/min 88.7 mL/hr propofol (DIPRIVAN) injection 10 mg/mL v ial Given 10/14/2017 1:[address] OF APPEALS JUDGE 50 mg PRN, Starting on Tue10/14/17 at 1252, Anesthesia Intra-op Given 10/14/2017 12:[address] OF APPEALS JUDGE 150 mg documented in this encounter Care Teams Weight Control Lecturer Relationship Specialty Start Date End Date Clinic, [facility] PCP - General 06/03/171999 [place] [address] documented as of this encounter
--- OUTSIDE RECORDS SUMMARY | 2022-09-14 11:52 | XMS_ITS | Encounter Summary ---
:1965 Author Organization [place] Address [address] [place] [address] Care Team Providers Name Role Phone Amna Fletcher Primary Care Provider Reason for Visit Reason Comments Chest Wall Pain Encounter Details Date Type Department Care Team Description 07/18/[address] [facility] Radha Espana Sternal contusion, initial encounter; [facility] Emergency Dep phuong Ross MD Closed fracture of rib of right side, in itial encounter [address] [facility] [place] [address] [address] [place] [address] (Wo rk) Social History Tobacco Use Types [...] your healthcare provider ?? Congested cough ?? [phone] [employer]. [address] [place] [address], [place] [address]. All rights reserved. This information is not intended as a substitute for professional medical care. Always follow your healthcare professional's instructions. AttachmentsThe following attachments cannot be sent through Care Everywhere.BONE BRUISE (BONE CONTUSION), UNDERSTANDING (FRENCH)documented in this encounter Medications at Time of [...] surgery Bilateral knee arthroplasty Gastric bypass Cholecystectomy System Software Developer surgery Family History: History reviewed. No pertinent [...] Department Course ECG (01:17:19): Rate 69 bpm. AR interval 176. QRS duration 94. QT/QTc 408/437. [...] hours for 10 days Adrian Vera 07/18/2016 [facility] EMERGENCY DEPARTMENT IAdrian am serving as a scribe at 1:03 AM on 07/18/2016 to document services personally performed by Radha Espana MD based on my observations and the provider's statements to me. Radha Espana MD 07/18/16 9019 Renea Conn RN - 07/18/2016 12:48 AM [...] EKG 12 lead (07/18/2016 1:17 AM CDT) [facility] gist Method Time Signature Interpretation ECG Click [...] dose documented in this encounter Care Teams Aerospace Assembler Relationship Specialty Start Date End Date Amna Fletcher PCP - General 07/18/16 05/16/17 [place] [address] documented as of this encounter
--- OUTSIDE RECORDS SUMMARY | 2022-09-14 11:52 | XMS_ITS | Encounter Summary ---
:1965 Author Organization [place] Address [address] [place] [address] Care Team Providers Name Role Phone Unavailable Primary Care Provider Unavailable Reason for Visit Reason Onset Date Comments Previsit 12/11/2014 12/19/[address] Juice mackenzie Encounter Details Date Type Department Care Team Description 12/11/2014 PRE VISIT Yasmin, Previsit ( OV [facility] Shauna Alejo MD with Dr Humphrey) [place] [address] [place], [place] [phone] (Wo rk) Social History Tobacco Use Types Packs/Day Years Used Date Smoking Tobacco: Never Assessed Sex Assigned at Date Recorded Not on file documented as of this encounter Plan of Treatment Not on filedocumented as of this encounter Visit Diagnoses Not on filedocumented in this encounter
--- OUTSIDE RECORDS SUMMARY | 2022-09-14 11:52 | XMS_ITS | Encounter Summary ---
:1965 Author Organization [place] Address [address] [place] [address] Care Team Providers Name Role Phone [facility], [facility] [...] on filedocumented in this encounter Care Teams Paper Cutter Operator Relationship Specialty Start Date End Date [facility] PCP - General 06/03/171999 [place] [address] documented as of this encounter
--- OUTSIDE RECORDS SUMMARY | 2022-09-14 11:52 | XMS_ITS | Encounter Summary ---
:1965 Author Organization [place] Address [address] [place] [address] Care Team Providers Name Role Phone Clinic, [facility] Primary Care Provide r Reason for Visit Reason Comments Referral Other ID Encounter Details Date Type Department Care Team Description 05/11/2021 Communication - [facility] [place] Provider, Jameel howard; [facility] Special[facility] Patient Access [address] [place] [phone] Social History Tobacco Use Types Packs/Day Years Used Date Smoking Tobacco: Every Day Cigarettes 0.5 Smokeless Tobacco: Never Alcohol Use Standard Drinks/Week Comments No 0 (1 standard drink = 0.6 oz pure alcoho l) Sex Assigned at Date Recorded Not on file documented as of this encounter Miscellaneous Notes Telephone Encounter - Historical Provider - 05/13/2021 11:10 AM CDT Date: 05/14/2021 Status: [facility] Time: 3:20 PM Length: 40 Visit Type: CONSULT [[id number]] Copay: $0.00 Provider: Mor Bautista MD Telephone [...] ONLY received??? 05/11/2021 12:05pm inside ID consult [facility], , Referring: Dr David Cohn, DX: status post shoulder replacement, left Order comments: Asking for HALI, this week. documented in this encounter Plan of Treatment Not on filedocumented as of this encounter Visit Diagnoses Not on filedocumented in this encounter Care Teams First Line Supervisor Relationship Specialty Start Date End Date Clinic, [facility] PCP - General 06/03/171999 [place] [address] documented as of this encounter
--- OUTSIDE RECORDS SUMMARY | 2022-09-14 11:52 | XMS_ITS | Encounter Summary ---
:1965 Author Organization [place] Address [address] [place] [address] Care Team Providers Name Role Phone [facility], [facility] Primary Care Provide r Encounter Details Date Type Department Care Team Description 03/03/2021 [facility] CONVERSION ProviderAlea Social History [...] on filedocumented in this encounter Care Teams Pharmacy Data Analyst Relationship Specialty Start Date End Date [facility] PCP - General 06/03/171999 [place] [address] documented as of this encounter
--- OUTSIDE RECORDS SUMMARY | 2022-09-14 11:52 | XMS_ITS | Encounter Summary ---
:1965 Author Organization [place] Address [address] [place] [address] Care Team Providers Name Role Phone [facility], [facility] Primary Care Provide r Mor Bautista [...] on filedocumented in this encounter Care Teams Complex Manager Relationship Specialty Start Date End Date [facility] PCP - General 06/03/17 [facility] [address] [place] [address] Mor Bautista MD Assigned Infectious Disease 06/12/2106/25 [address] Provider [facility] [address] [place] [address] documented as of this encounter
--- OUTSIDE RECORDS SUMMARY | 2022-09-14 11:52 | XMS_ITS | Encounter Summary ---
:1965 Author Organization [place] Address [address] [place] [address] Care Team Providers Name Role Phone [facility], [facility] Primary Care Provide r Encounter Details Date Type Department Care Team Description [facility]2021 [facility] ProviderAlea Social History Tobacco Use [...] on filedocumented in this encounter Care Teams Core Extruder Relationship Specialty Start Date End Date [facility] PCP - General 06/03/171999 [place] [address] documented as of this encounter
--- OUTSIDE RECORDS SUMMARY | 2022-09-14 11:52 | XMS_ITS | Encounter Summary ---
:1965 Author Organization [place] Address [address] [place] [address] Care Team Providers Name Role Phone Clinic, [facility] Primary Care Provide r Mor Bautista MD Unavailable Reason for Visit Reason Onset Date Comments Appointment 05/12/2021 Encounter Details Date Type Department Care Team Description 05/12/2021 [facility] Infectious Disease None Appointment [place] [phone] Social History Tobacco Use Types Packs/Day Years Used Date Smoking Tobacco: Every Day Cigarettes 0.5 Smokeless Tobacco: Never Alcohol Use Standard Drinks/Week Comments No 0 (1 standard drink = 0.6 oz pure alcoho l) Sex Assigned at Date Recorded Not on file documented as of this encounter Miscellaneous Notes Telephone Encounter - Tiffanie Georges - 05/12/2021 12:17 PM CDT [facility] Phone Message May a detailed message be left on voicemail: yes Reason for Call: Other: Pt requesting call back, pt stated she is returning a call to the clinic. Bacteriologist Medical did not see any notes in the pt's chart to refer to. Pt stated she is being referred from [facility] for a staph infection in her shoulder, pt stated she is needing to be seen this week. Pt stated she has trouble finding an antibiotics that works due to all the allergies she has Action Taken: Message routed to: [facility] ([facility]): ID documented in this encounter Plan of Treatment Not on filedocumented as of this encounter Visit Diagnoses Not on filedocumented in this encounter Care Teams Deputy General Counsel Relationship Specialty Start Date End Date Clinic, [facility] PCP - General 06/03/[address] [address] Mor Bautista MD Assigned Infectious Disease 06/12/2106/25 [address] Porter Provider [address] [address] documented as of this encounter
--- OUTSIDE RECORDS SUMMARY | 2022-09-14 11:52 | XMS_ITS | Encounter Summary ---
:1965 Author Organization [place] Address [address] [place] [address] Care Team Providers Name Role Phone Unavailable Primary Care Provider Unavailable Encounter Details Date Type Department Care Team Description 07/29/2011 Historic Notes INTERFACED REPORT Interface, Transcript onMD Social History Tobacco Use Types Packs/Day Years Used Date Smoking Tobacco: Never Assessed Sex Assigned at Date Recorded Not on file documented as of this encounter Progress Notes Interface, Janitorial Services Supervisor - 08/30/2011 5:48 PM CDT Allergies ?? [...]
--- OUTSIDE RECORDS SUMMARY | 2022-09-14 11:52 | XMS_ITS | Encounter Summary ---
:1965 Author Organization [place] Address [address] [place] [address] Care Team Providers Name Role Phone Clinic, [facility] Primary Care Provide r Reason for Visit Reason Comments Back Pain Neck Pain Encounter Details Date Type Department Care Team Description 06/03/[address] [facility] He[place]ad, Zoey Acute mi dline low back pain, with sciatica presence unspecified; [facility] Emergency Dep phuong Flowers PA-C Chronic neck pain [address] [facility] [place], [place] [address] [address] [facility] [phone] [place] [phone] (Wo rk) Social History Tobacco Use [...] she received adequate care at the [facility] hospitals that she has been too. Pt reports that she left [facility] yesterday after they did not address her issues. Pt states that she would like something to take her painaway and upset that has not been receiving adequate pain control. SW explained that this writer producer could not provide pt with pain meds [...] Evans RN - 06/03/2017 3:41 PM CDT billet worker is talking with patient per patient [...] pain in her sternum.She was seen at [place] and evaluated for neck pain but left [...] and that she is seeing doctors at [facility] for evaluation. She reports that most of [...] 6 months ago when she ran into [employer]. She states that she called her pain management center, [facility], and that they referred [...] a history of chronic pain who sees [facility] for her prescription for [...] son tells me that they went to [place] emergency room and they told the nurse that they went to [place] emergency room as well in the past few days but nobody did anything or me. Here, the patient notes that hardware in her C-spine has loosened and she is scheduled to see [facility] physician to possibly look [...] came to talk to me. The social science research assistant states that the patient wanted to complain about our care to her but she had no complaints of social issues at home. billet worker referred her back to me. I [...] I did also speak to a P.A. content management specialist for [facility], [place], who agreed [...] observations and the provider's statements to me. [facility] EMERGENCY [facility]PARTMENT Zoey López PA-C 06/03/17 [...] 1,000 mg (COMPLETED) 1433 (Given - Provider: Krisite Rojas RN) 1,000 mg, Oral, ONCE, Tue06/03/17 [...] dose documented in this encounter Care Teams Seasonal Clerk Relationship Specialty Start Date End Date Clinic, [facility] PCP - General 06/03/171999 [place] [address] documented as of this encounter
--- OUTSIDE RECORDS SUMMARY | 2022-09-14 11:52 | XMS_ITS | Encounter Summary ---
:1965 Author Organization [place] Address [address] [place] [address] Care Team Providers Name Role Phone [facility] Primary Care Provide r Encounter Details Date Type Department Care Team Description 05/20/2021 Records - [facility], [facility] [address] [facility] [address] [place] [address] Social History Tobacco Use Types Packs/Day Years [...] athologist Signature Creatinine 0.60 0.50 - 1.50 [facility] mg/dL HOSPITAL Specimen (Source) Anatomical Location Collection Method / Collectio n Time Received Time / Laterality Volume Blood specimen 04/20/2021 (specimen) Narrative 04/20/2021 [facility] EXTERNAL RESULT Historical Provider LAB - BLOOD ORDERABLES Performing Organization Address City/State/ZIP Code Phon e Number [facility] [address] [place] [address] documented in this encounter Visit Diagnoses Not on filedocumented in this encounter Care Teams Sales Producer Relationship Specialty Start Date End Date Clinic, [facility] PCP - General 06/03/171999 [place] [address] documented as of this encounter
--- OUTSIDE RECORDS SUMMARY | 2022-09-14 11:52 | XMS_ITS | Encounter Summary ---
:1965 Author Organization [place] Address [address] [place] [address]. [place] [address] Care Team Providers Name Role Phone Clinic, [facility] Primary Care Provide r Reason for Visit Reason Comments Consult pt here with her neighbor Arin calderon, Encounter Details Date Type Department Care Team Description 05/14/2021 Office Visit - [facility] Mor Bautista Acute he matogenous [facility] Sheldon Patel MD osteomyelitis of right [address] [place] [address] [address] (H) [address] [facility] 300 [address] [place], [place] [phone] [address] Social History Tobacco Use Types Packs/Day [...] and has many allergies. The isolate is MRSJeo, S to doxy. She is not allergic to doxy. Dr. Cohn would like her to be on some version of an oral suppressive. Pertinent past history, past infectious disease history: Reviewed in the notes from [place] Medications: Reviewed prior to admission meds as [...] ?? GRAM STAIN? Gram stain performed by [place], [place] ?? Specimen Collected on Tissue - [...] this duration if possible. My cell is [phone]. I wrote for 90 days and warned pt about sunburn risk. She has hx of skin cancer. 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
--- OUTSIDE RECORDS SUMMARY | 2022-09-14 11:52 | XMS_ITS | Encounter Summary ---
:1965 Author Organization [place] Address [address] [place] [address] Care Team Providers Name Role Phone [facility] Primary Care Provide r Encounter [...] on filedocumented in this encounter Care Teams Inside Sales Representative Relationship Specialty Start Date End Date [facility] PCP - General 06/03/171999 [place] [address] documented as of this encounter
--- OUTSIDE RECORDS SUMMARY | 2022-09-14 11:52 | XMS_ITS | Encounter Summary ---
:1965 Author Organization [place] Address [address] [place] [address] Care Team Providers Name Role Phone [facility] Primary Care Provide r Mor Bautista MD [...] filedocumented in this encounter Care Teams Environmental Engineer Relationship Specialty Start Date End Date [facility] PCP - General 06/03/17 [facility] [address] [place] [address] Mor Bautista MD Assigned Infectious Disease 06/12/2106/25 Elisabeth Porter Provider [facility] [address] [place] [address] documented as of this encounter
--- OUTSIDE RECORDS SUMMARY | 2022-09-14 11:52 | XMS_ITS | Encounter Summary ---
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 Sh Periop Services Procedures CYSTOSCOPY, SLING TRANSVAGINAL [address], [address] [place] [address] Phone: Referral ID Status Reason Start Date Expiration Date Visits Requ ested Visits Authorized [id number] 1 1 Encounter Details Date Type Department Care Team Description 10/14/2017 Surgery [facility] [place], CYSTOSCOPY ,TVT SLING [place] [facility] Ser ashwin Rodrigez MD [address] [facility] [address] [place] [address] [facility] [phone] [place] [address] (Wo rk) Surgery Details Date/Time Status Location OR Service Patient Case Class Case Tr auma Class Type Case? 10/14/17 1:00 Posted OR OR [facility] Urology Same Day PM [...] Comments Blood Pressure 93/59 10/14/2017 2:15 PM DROP BOARD MAN Pulse - - Temperature 35.7 ??C (96.3 ??F) 10/14/2017 1:31 PM DROP BOARD MAN Respiratory Rate 14 10/14/2017 2:15 PM DROP BOARD MAN Oxygen Saturation 93% 10/14/2017 2:15 PM DROP BOARD MAN Inhaled Oxygen Concentration - - Weight 73.9 kg (163 lb) 10/14/2017 12:15 PM DROP BOARD MAN Height 152.4 cm (5') 10/14/2017 12:15 PM DROP BOARD MAN Body Mass Index 31.83 10/14/2017 12:15 PM DROP BOARD MAN documented in this encounter Discharge Instructions Discharge InstructionsGi King RN - 10/14/2017 1:42 PM DROP BOARD MAN Post Bladder Sling Instructions Dr Stafford [phone] ?? For pain you may take a narcotic/acetaminophen combination prescription for pain relief. The mostcommon pain is in the upper thighs. This usually lasts 2-3 days. You may use cold packs to this areaas needed to reduce pain and bruising. Generally oqvh-[id number] medicines such as ibuprofen, 3-4 tablets every [...] vaginal sutures. ?? Post op appointments: Call [phone] to schedule an appointment to see your [...] know so they can address your concerns. BOARD MAN documented in this encounter Medications at Time [...] needed for muscle spasms naloxone (NARCAN) nasal [place] 4 mg into one 0 spray nostril [...] (Takes 2 x 5000 unit tablet = 77950 unit dose) ZONISAMIDE PO Take 300 mg [...] and was given a new prescription for Barton. Prescription for Oxycodone shredded. Patient took hard copy of new Barton prescription with her.; BOARD MAN Vicki Matthews RN - 10/14/2017 3:39 PM CST Patient voided, bladder scan 450cc, encouraged patient to void again. Pt voided. Bladder scan for 100-150cc. Patient comfortable and ready to go home. BOARD MAN documented in this encounter Miscellaneous Notes Op [...] note, she also underwent sling placement in [facility] and on exam I was [...] and draped in the regular fashion. A 16-[place] catheter was placed. Periurethral space was [...] MD MT: #[id number] Name: ANGIE MOSQUERA Account: [id number] : 1965 Procedure Date: 10/14/2017 Document: [id number] cc: Rain Stafford MD BOARD MAN documented in this encounter Plan of Treatment Not on filedocumented as of this encounter Procedures Procedure Name Priority Date/Time Associated Diagnosis Comme nts CREATION, VAGINAL 10/14/2017 12:46 PM URGE AND STRESS SLING, WITH CYSTOSCOPY DROP BOARD MAN INCONTINENCE,FEMAL E STRESS INCONTINENCE LAB RESULT - HIM SCAN 10/11/2017 12:00 AM DROP BOARD MAN EKG CARDIAC - HIM SCAN 08/15/2017 12:00 AM CDT XRAY IMAGING - HIM 07/25/2017 12:00 AM SCAN CDT documented in this encounter Results LAB RESULT - HIM SCAN (10/11/2017 12:00 AM DROP BOARD MAN) Specimen (Source) Anatomical Location Collection Method / [...] 1:21 PM 30 mLs Operative EPINEPHrine 1:200,000 DROP BOARD MAN Sit e/Surgical Site injection PRN, Starting on Tue10/14/17 at 1321, Intra-procedure ciprofloxacin (CIPRO) infusion 400 mg Given 10/14/2017 12:59 PM DROP BOARD MAN 400 mg Routine, 400 mg, Intravenous, PRE-OP/PRE-PROCEDURE, Starting on Tue10/14/17 at 1155, For 1 dose, Irritant., Indications: Perioperative Pharmacoprophylaxis, Pre-procedure New Bag 10/14/2017 12:26 PM DROP BOARD MAN 400 mg fentaNYL (PF) (SUBLIMAZE) injection 25-5 0 mcg Given 10/14/2017 2:01 PM DROP BOARD MAN 50 mcg 25-50 mcg, Intravenous, EVERY 2 [...] 100 mcg., PACU Given 10/14/2017 1:50 PM DROP BOARD MAN 50 mcg HYDROmorphone (PF) (DILAUDID) injection Given 10/14/2017 2:42 PM DROP BOARD MAN 0.5 mg 0.3-0.5 mg 0.3-0.5 mg, Intravenous, [...] minutes., PACU/Phase II Given 10/14/2017 2:18 PM DROP BOARD MAN 0.5 mg ondansetron (ZOFRAN) injection 4 mg Given 10/14/2017 2:18 PM DROP BOARD MAN 4 mg 4 mg, Intravenous, EVERY 30 [...] tablet 5 mg Given 10/14/2017 2:54 PM DROP BOARD MAN 5 mg 5 mg, Oral, ONCE, On Tue10/14/17 at 1500, For 1 dose, PACU scopolamine (TRANSDERM) 72 hr Given 10/14/2017 12:43 PM DROP BOARD MAN 1 pa tch Behind Left Ear patch 1 patch 1 patch, Transdermal, EVERY 72 HOURS, First dose on Tue10/14/17 at 1245, Apply patch to skin, behind ear. Remove every 72 hours. Each 1.5 mg patch delivers 1 mg of scopolamine., Pre-procedure skin closure adhesive Given 10/14/2017 1:19 PM 1 applicator Operative (DERMABOND) vial DROP BOARD MAN Site/Surgical S ite PRN, Starting on Tue10/14/17 at 1319, Intra-procedure sodium chloride 0.9% Given 10/14/2017 1:09 PM 1,000 mLs Operative (bottle) irrigation DROP BOARD MAN Site/Surgical S ite PRN, Starting on Tue10/14/17 at 1309, Intra-procedure sterile water irrigation Given 10/14/2017 1:08 PM 3,000 mLs Operative (bag) DROP BOARD MAN Site/Surgical S ite PRN, Intra-procedure, Starting on Tue10/14/17 at 1308, Until Tue10/14/17 at 1544 documented in this encounter Active and Recently Administered Medications Times are shown in DROP BOARD MAN. Scheduled Medication Order 10/12/2017 10/13/2017 10/14/2017 ciprofloxacin (CIPRO) infusion 400 mg (COMPLETED) 1226 (New Bag - Provider: Rona Hanks RN)1259 (Given - Provider: Gayatri Combs APRN ALEMITE OPERATOR) Routine, 400 mg, Intravenous, PRE-OP/PRE -PROCEDURE, [...] RN) 0.3-0.5 mg, Intravenous, EVERY 10 MIN NV N, other, acute pain.?May administer if Respiratory [...] 1544 documented in this encounter Care Teams Associate Teacher Relationship Specialty Start Date End Date Clinic, [facility] PCP - General 06/03/171999 [place] [phone] documented as of this encounter
--- OUTSIDE RECORDS SUMMARY | 2022-09-14 11:52 | XMS_ITS | Clinical Summary ---
:1965 Author Organization [place] Address [address] [place] [address] Care Team Providers Name Role Phone Clinic, [facility] Primary Care Provide r Allergies Active Allergy [...] breath / dyspnea or wheezing naloxone (NARCAN) [place] 4 mg into 0 Active nasal spray [...] (Takes 2 x 5000 unit tablet = 38172 unit dose) Esomeprazole Magnesium Take 40 mg [...] CDT Respiratory Rate 16 10/14/2017 4:28 PM PROTECTIVE SIGNAL REPAIRER Oxygen Saturation 98% 10/14/2017 4:28 PM PROTECTIVE SIGNAL REPAIRER Inhaled Oxygen Concentration - - Weight 74.8 [...] this topic Medical Devices Implanted Type Area Shear Operator Helper Device Shelf Model / Identifier Expiration Serial / Date Lot Device Tvt Obturator Laser [id number] Other N/A: [employer] 04/27/2018 [id number] / Implanted: Qty: 1 on 10/14/2017 by Rain Herring MD at [facility]- / [id number] Procedures Procedure Name Priority Date/Time Associated Comments [...] IFA with Reflex (08/10/2022 11:10 AM CDT) [facility] Method Time Signature ERYN interpretation Negative [...] Code Phon e Number SPECIALTY CORE/PROT/ENDO [place]ty [place], [place] [address] Core/Prot/Endo [address] [facility] [address] [facility], Room 3-580 Lyme Disease Total [...] LAB - BLOOD ORDERABLES Performing Organization Address City/[facility]/ZIP Code Phon e Number SPECIALTY CORE/PROT/ENDO [place]ty [place], [place] [address] Core/Prot/Endo [address] [facility] [address] [facility], Room 3-580 Uric acid (08/10/2022 11:10 AM CDT) athologist Signature Uric Acid 4.8 2.0 - 7.5 08/10/2022 [facility] mg/dL 11:36 AM CDT Specimen Anatomical Collection Method / Collection Time Recei jose Time (Source) Location / Volume Laterality Blood STRUCTURE OF RIGHT Venipuncture / 08/10/2022 11:10 HAND / Unknown Unknown AM CDT 11:10 AM CDT Clemente Katz PA-C LAB - BLOOD ORDERABLES Performing Organization Address City/State/ZIP Code Phon e Number [facility] [place] [address] [facility] [address] TSH (08/10/2022 11:10 AM CDT) athologist Signature TSH 0.92 0.30 - 5.00 08/10/2022 [facility] uIU/mL 12:01 PM CDT Specimen Anatomical Collection Method / Collection Time Recei jose Time (Source) Location / Volume Laterality Blood STRUCTURE OF RIGHT Venipuncture / 08/10/2022 11:10 HAND / Unknown Unknown AM CDT 11:10 AM CDT Clemente Katz PA-C LAB - BLOOD ORDERABLES Performing Organization Address City/State/ZIP Code Phon e Number [facility] [place] [address] [address] [facility] Thyroxine total (08/10/2022 11:10 AM CDT) [...] LAB - BLOOD ORDERABLES Performing Organization Address City/[facility]/ZIP Code Phon e [place] [address] [phone] Lab [address] [facility], Room 3-580 T4 free (08/10/2022 11:10 AM [...] City/State/ZIP Code Phon e [place] [address] Lab [address] [facility], Room 3[facility] T3 total (08/10/2022 11:10 AM CDT) athologist [...] City/State/ZIP Code Phon e Number [facility] [address] Lab [address] [facility], Room 3[facility] Rheumatoid factor (08/10/2022 11:10 AM CDT) athologist Signature Rheumatoid <6 <12 IU/mL 08/10/2022 [facility] SPECIALTY Factor 3:34 PM CDT CORE/PROT/ENDO Specimen Anatomical Collection Method / Collection Time Recei jose Time (Source) Location / Volume Laterality Blood STRUCTURE OF RIGHT Venipuncture / 08/10/2022 11:10 HAND / Unknown Unknown AM CDT 11:10 AM CDT Clemente Katz PA-C LAB - BLOOD ORDERABLES Performing Organization Address City/[facility]/ZIP Code Phon e Number [facility] SPECIALTY CORE/PROT/ENDO UM Specialty [place], [place] [address] Core/Prot/Endo [address] [facility], Room 3[facility] (ABNORMAL) D dimer quantitative (08/10/2022 11:10 AM CDT) [facility] gist Method Time Signature D-Dimer 1.69 (H) 0.00 - 08/10/2022 [facility] Quantitative 0.50 11:28 AM CDT ug/mL FEU Specimen Anatomical Collection Method / Collection Time Recei jose Time (Source) Location / Volume Laterality Blood STRUCTURE OF RIGHT Venipuncture / 08/10/2022 11:10 HAND / Unknown Unknown AM CDT 11:10 AM CDT Narrative [facility] - 08/10/2022 11:28 AM CDT This D-dimer assay is intended for use i n conjunction with a clinical pretest probability assessment model to exclude pulmonary embolism (PE) and deep venous thrombosis (DVT) in outpatients suspecte d of PE or DVT. The cut-off value is 0.50 ug/mL FEU. Clemente Katz PA-C LAB - BLOOD ORDERABLES Performing Organization Address City/[facility]/ZIP Code Phon e Number [facility] [place] [address] CRP inflammation (08/10/2022 11:10 AM CDT) P athologist Signature CRP 0.2 0.0 - <0.8 08/10/2022 [facility] mg/dL 11:33 AM CDT Specimen Anatomical Collection Method / Collection Time Recei jose Time (Source) Location / Volume Laterality Blood STRUCTURE OF RIGHT Venipuncture / 08/10/2022 11:10 HAND / Unknown Unknown AM CDT 11:10 AM CDT Clemente Katz PA-C LAB - BLOOD ORDERABLES Performing Organization Address City/[facility] Code Phon e Number [facility] [place] [address] WBC and Differential (08/10/2022 11:05 AM CDT) Analysis Performed At Patho logist Time Signature WBC Count 4.2 4.0 - 11.0 08/10/2022 [facility] 10e3/uL 11:16 AM CDT % Neutrophils 43 % 08/10/2022 [facility] 11:16 AM CDT % Lymphocytes 42 % 08/10/2022 [facility] 11:16 AM CDT % Monocytes 11 % 08/10/2022 [facility] 11:16 AM CDT % Eosinophils 3 % 08/10/2022 [facility] 11:16 AM CDT % Basophils 1 % 08/10/2022 [facility] 11:16 AM CDT % Immature 0 % 08/10/2022 [facility] Granulocytes 11:16 AM CDT NRBCs per 100 WBC 0 <1 /100 08/10/2022 [facility] 11:16 AM CDT Absolute 1.8 1.6 - 8.3 08/10/2022 [facility] Neutrophils 10e3/uL 11:16 AM CDT Absolute 1.8 0.8 - 5.3 08/10/2022 [facility] Lymphocytes 10e3/uL 11:16 AM CDT Absolute 0.5 0.0 - 1.3 08/10/2022 [facility] Monocytes 10e3/uL 11:16 AM CDT Absolute 0.1 0.0 - 0.7 08/10/2022 [facility] Eosinophils 10e3/uL 11:16 AM CDT Absolute 0.0 0.0 - 0.2 08/10/2022 [facility] Basophils 10e3/uL 11:16 AM CDT Absolute Immature 0.0 <=0.4 08/10/2022 [facility] Granulocytes 10e3/uL 11:16 AM CDT Absolute NRBCs 0.0 10e3/uL 08/10/2022 [facility] 11:16 AM CDT Specimen Anatomical Collection Method / Collection Time Recei jose Time (Source) Location / Volume Laterality Blood STRUCTURE OF RIGHT Venipuncture / 08/10/2022 11:05 HAND / Unknown Unknown AM CDT 11:05 AM CDT Clemente Katz PA-C LAB - BLOOD ORDERABLES Performing Organization Address City/[facility]/ZIP [place] [address] Erythrocyte sedimentation rate auto (08/10/2022 11:05 AM CDT) [facility] gist Method Time Signature Erythrocyte 13 0 - 20 08/10/2022 [facility] Sedimentation Rate mm/hr 11:45 AM CDT Specimen Anatomical Collection Method / Collection Time Recei jose Time (Source) Location / Volume Laterality Blood STRUCTURE OF RIGHT Venipuncture / 08/10/2022 11:05 HAND / Unknown Unknown AM CDT 11:05 AM CDT Clemente Katz PA-C LAB - BLOOD ORDERABLES Performing Organization Address City/[facility]/ZIP [place] [address] from Last 3 Months Insurance Payer Benefit Plan / Subscriber ID Effective Dates Phone Addre ss Type Group MEDICARE MEDICARE [id number] 2012-Ariana [phone] ATTN CL AIMS Medicare nt 0 [address] [place] [address] MEDICA MEDICA ACCESS [id number] 2016-Dirk [phone] [address] [address] HMO ABILITY [address] [place] [address] Care Teams Map Compiler Relationship Specialty Start Date End Date Clinic, [facility] PCP - General 06/03/171999 [place] [address]
--- OUTSIDE RECORDS SUMMARY | 2022-09-14 11:52 | XMS_ITS | Encounter Summary ---
:1965 Author Organization [place] Address [address] [place] [address] Care Team Providers Name Role Phone [facility] Primary Care Provide r Encounter Details Date Type Department Care Team Description [facility] ProviderAlea Social History [...] on filedocumented in this encounter Care Teams Weeder Thinner Relationship Specialty Start Date End Date [facility] PCP - General 06/03/171999 [place] [address] documented as of this encounter
--- OUTSIDE RECORDS SUMMARY | 2022-09-14 11:52 | XMS_ITS | Encounter Summary ---
:1965 Author Organization [place] Address [address] [place] [address] Care Team Providers Name Role Phone Clinic, [facility] Primary Care Provide r Encounter Details Date Type Department Care Team Description [facility] [address] [place] [address] [id number] Social History Tobacco Use Types Packs/Day Years [...] Bacterial Culture Routine (03/20/2021 6:00 AM CDT) [facility] Method Time Signature Culture STAPHYLOCOCCUS 03/27/2021 [facility] EPIDERMIDIS (A) 8:01 AM CDT [facility] Comment: Staphylococcus epidermidis Isolated from broth only Gram Stain 4+ Polymorphonuclear 03/27/2021 8:01 AM HEALTH Result leukocytes [facility] Gram Stain No organisms seen 03/27/2021 8:01 AM [facility]ALTH Result CDT [facility] Specimen Anatomical Collection Method [...] 1: Ortiz sceptible Comment: Z96.612 Clemente Blackwell [employer] [facility] ORDERABL ES Performing Organization Address City/[facility]/[place] [address] [address] [facility] Anaerobic Bacterial Culture Routine (03/20/2021 6:00 AM CDT) [facility] Method Time Signature Culture No anaerobic 03/23/2021 HEALTH organisms 7:18 AM CDT [facility] Specimen Anatomical Collection Method Collection Time Receive d Time (Source) Location / / Volume Laterality Body fluid Non-blood 03/20/2021 6:00 AM 1 specimen Collection / CDT 12:05 PM CDT (specimen) Unknown Clemente Blackwell LAB - MICRO GENERAL ORDERABL ES Performing Organization Address City/State/[place] [address] [address] [facility] (ABNORMAL) Cell count with differential fluid (03/20/2021 6:00 AM CDT) [facility] Method Time Signature Color Red 03/20/2021 HEALTH 2:04 PM CDT [facility] Clarity Turbid 03/20/2021 HEALTH 2:04 PM CDT [facility] Total Nucleated 42,864 (H) 0 - 99 03/20/2021 [facility] Cells /uL 2:04 PM CDT [facility] RBC, Fluid >50,000 <50,000 03/20/2021 [facility]ALTH (A) /ul 2:04 PM CDT [facility] % Neutrophils 91 (H) <=25 % 03/20/2021 [facility] 2:04 PM CDT [facility] % Lymphocytes 8 <=78 % 03/20/2021 [facility] 2:04 PM CDT [facility] Monocyte % 1 <=71 % 03/20/2021 [facility] 2:04 PM CDT [facility] Macrophage % 03/20/2021 [facility] 2:04 PM CDT [facility] Mesothelials, 03/20/2021 [facility] Fluid 2:04 PM CDT [facility] % Eosinophils 03/20/2021 [facility] 2:04 PM CDT [facility] % Other Cells 03/20/2021 [facility] 2:04 PM CDT [facility] Specimen Anatomical Collection Method Collection Time Receive d Time (Source) Location / / Volume Laterality Body fluid BODY FLUID Non-blood 03/20/2021 6:00 AM specimen SPECIMEN / Unknown Collection / CDT 12:05 PM CDT (specimen) Unknown Narrative [facility] - 03/20/2021 2:04 PM CDT Large clot present; count may be inaccur ate. Clemente Blackwell LAB - BODY FLUIDS ORDERABLES Performing Organization Address City/State/ZIP Code [place] [address] [place] [address] [place] [address] [facility] [place] [address], [facility] [phone] documented in this encounter Visit Diagnoses Not on filedocumented in this encounter Care Teams Anesthesiologist Physician Relationship Specialty Start Date End Date Clinic, [facility] PCP - General 06/03/171999 [place] [address] documented as of this encounter
--- OUTSIDE RECORDS SUMMARY | 2022-09-14 11:52 | XMS_ITS | Encounter Summary ---
:1965 Author Organization [place] Address [address] [place] [address] Care Team Providers Name Role Phone [facility] Primary Care Provide r Encounter Details Date Type Department Care Team Description 03/20/2021 [facility] - [facility] CONVERSION ProviderAlea Social [...] on filedocumented in this encounter Care Teams Instructor Weaving Relationship Specialty Start Date End Date [facility] PCP - General 06/03/171999 [place] [address] documented as of this encounter
--- OUTSIDE RECORDS SUMMARY | 2022-09-14 11:52 | XMS_ITS | Encounter Summary ---
:1965 Author Organization [place] Address [facility] 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 Sh Periop Services Procedures CYSTOSCOPY, SLING TRANSVAGINAL [address] [place] [address] Phone: Referral ID Status Reason Start Date Expiration Date Visits Requ ested Visits Authorized [id number] 1 1 Encounter Details Date Type Department Care Team Description 10/14/2017 Hospital Encounter [facility] Tesfaye, Mary Ann ss incontinence Shayne Rodrigez MD (Primary Dx) PreOP/Phase II [place] [address], UROLOGY [address] [facility] [address] [place] [address] [phone] Social History Tobacco Use Types Packs/Day Years Used Date Smoking Tobacco: Every Day Cigarettes 0.5 Smokeless Tobacco: Never Alcohol Use Standard Drinks/Week Comments No 0 (1 standard drink = 0.6 oz pure alcoho l) Sex Assigned at Date Recorded Not on file documented as of this encounter Last Filed Vital Signs Vital Sign Reading Time Taken Comments Blood Pressure 121/86 10/14/2017 4:28 PM PRE SALES ARCHITECT Pulse - - Temperature 36.6 ??C (97.8 ??F) 10/14/2017 3:00 PM PRE SALES ARCHITECT Respiratory Rate 16 10/14/2017 4:28 PM PRE SALES ARCHITECT Oxygen Saturation 98% 10/14/2017 4:28 PM PRE SALES ARCHITECT Inhaled Oxygen Concentration - - Weight 73.9 kg (163 lb) 10/14/2017 12:15 PM PRE SALES ARCHITECT Height 152.4 cm (5') 10/14/2017 12:15 PM PRE SALES ARCHITECT Body Mass Index 31.83 10/14/2017 12:15 PM PRE SALES ARCHITECT documented in this encounter Discharge Instructions Discharge InstructionsGi King RN - 10/14/2017 1:42 PM PRE SALES ARCHITECT Post Bladder Sling Instructions Dr Stafford [phone] ?? For pain you may take a narcotic/acetaminophen combination prescription for pain relief. The mostcommon pain is in the upper thighs. This usually lasts 2-3 days. You may use cold packs to this areaas needed to reduce pain and bruising. Generally jikh-moq-xteyfnb medicines such as ibuprofen, 3-4 tablets every [...] vaginal sutures. ?? Post op appointments: Call [phone] to schedule an appointment to see your [...] know so they can address your concerns. SALES ARCHITECT documented in this encounter Medications at Time [...] needed for muscle spasms naloxone (NARCAN) nasal [place] 4 mg into one 0 spray nostril [...] (Takes 2 x 5000 unit tablet = 68912 unit dose) ZONISAMIDE PO Take 300 mg [...] and was given a new prescription for [place]. Prescription for Oxycodone shredded. Patient took hard copy of new [place] prescription with her.; SALES ARCHITECT Vicki Matthews RN - 10/14/2017 3:39 PM CST Patient voided, bladder scan 450cc, encouraged patient to void again. Pt voided. Bladder scan for 100-150cc. Patient comfortable and ready to go home. SALES ARCHITECT documented in this encounter Miscellaneous Notes Op [...] note, she also underwent sling placement in [facility] and on exam I was able [...] and draped in the regular fashion. A 16-Serbian [place] catheter was placed. Periurethral space was [...] EM#[id number] Name: ANGIE MOSQUERA MRN: [id number] Account: [id number] : 1965 Procedure Date: 10/14/2017 Document: [id number] cc: Rain Stafford MD SALES ARCHITECT documented in this encounter Plan of Treatment Not on filedocumented as of this encounter Procedures Procedure Name Priority Date/Time Associated Diagnosis Comme nts CREATION, VAGINAL 10/14/2017 12:46 PM URGE AND STRESS SLING, WITH CYSTOSCOPY PRE SALES ARCHITECT INCONTINENCE,FEMAL E STRESS INCONTINENCE LAB RESULT - HIM SCAN 10/11/2017 12:00 AM PRE SALES ARCHITECT EKG CARDIAC - HIM SCAN 08/15/2017 12:00 AM CDT XRAY IMAGING - HIM 07/25/2017 12:00 AM SCAN CDT documented in this encounter Results LAB RESULT - HIM SCAN (10/11/2017 12:00 AM PRE SALES ARCHITECT) Specimen (Source) Anatomical Location Collection Method / [...] ciprofloxacin (CIPRO) infusion Given 10/14/2017 12:59 PM PRE SALES ARCHITECT 400 mg 400 mg Routine, 400 mg, Intravenous, PRE-OP/PRE-PROCEDURE, Starting on Tue10/14/17 at 1155, For 1 dose, Irritant., Indications: Perioperative Pharmacoprophylaxis, Pre-procedure New Bag 10/14/2017 12:26 PM PRE SALES ARCHITECT 400 mg fentaNYL (PF) (SUBLIMAZE) injection 25-5 0 mcg Given 10/14/2017 2:01 PM PRE SALES ARCHITECT 50 mcg 25-50 mcg, Intravenous, EVERY 2 [...] 100 mcg., PACU Given 10/14/2017 1:50 PM PRE SALES ARCHITECT 50 mcg HYDROmorphone (PF) (DILAUDID) injection Given 10/14/2017 2:42 PM PRE SALES ARCHITECT 0.5 mg 0.3-0.5 mg 0.3-0.5 mg, Intravenous, [...] minutes., PACU/Phase II Given 10/14/2017 2:18 PM PRE SALES ARCHITECT 0.5 mg ondansetron (ZOFRAN) injection 4 mg Given 10/14/2017 2:18 PM PRE SALES ARCHITECT 4 mg 4 mg, Intravenous, EVERY 30 [...] tablet 5 mg Given 10/14/2017 2:54 PM PRE SALES ARCHITECT 5 mg 5 mg, Oral, ONCE, On Tue10/14/17 at 1500, For 1 dose, PACU scopolamine (TRANSDERM) 72 hr Given 10/14/2017 12:43 PM PRE SALES ARCHITECT 1 pa tch Behind Left Ear patch 1 patch 1 patch, Transdermal, EVERY 72 HOURS, First dose on Tue10/14/17 at 1245, Apply patch to skin, behind ear. Remove every 72 hours. Each 1.5 mg patch delivers 1 mg of scopolamine., Pre-procedure documented in this encounter Active and Recently Administered Medications Times are shown in PRE SALES ARCHITECT. Scheduled Medication Order 10/12/2017 10/13/2017 10/14/2017 ciprofloxacin (CIPRO) infusion 400 mg (COMPLETED) 1226 (New Bag - Provider: Rona Hanks RN)1259 (Given - Provider: Gayatri Combs APRN SHOE STAINER) Routine, 400 mg, Intravenous, PRE-OP/PRE -PROCEDURE, Starting [...] RN) 0.3-0.5 mg, Intravenous, EVERY 10 MIN TX N, other, acute pain.?May administer if Respiratory [...] 1544 documented in this encounter Care Teams Electrical Prospecting Observer Relationship Specialty Start Date End Date [facility], [facility] PCP - General 06/03/171999 [place] [address] documented as of this encounter
--- OUTSIDE RECORDS SUMMARY | 2022-09-14 11:53 | XMS_ITS | Encounter Summary ---
:1965 Author Organization [place] Address [facility] [place] [address] Care Team Providers Name Role Phone Unavailable Primary Care Provider Unavailable Encounter Details Date Type Department Care Team Description 07/29/2011 Emergency room [facility] EMERGENCY NURY CISNEROS Results [address] [place], [place] [address] Social History Tobacco Use Types Packs/Day Years Used Date Smoking Tobacco: Never Assessed Sex Assigned at Date Recorded Not on file documented as of this encounter Progress Notes Interface, Insurance Investigator - 07/31/2011 10:23 AM CDT FINAL Chief [...] she recently came to the area from [place] to visit her father (approximately two weeks [...] with a friend. The patient resides in [place], and is here in the [facility] area visiting her father. The patient states that she has been smoking one pack of cigarettes per day since 1973. Her primary care physician is Dr. Holley De La Rosa in [place], [place]. \n Her chronic pain doctor is Dr. Garcia at [facility] in [place]. - Is negative for Illicit drug use, [...] to document services personally performed by Dr. eKlley , based on my observations and the provider's statements to me. Electronically signed on 07/31/2011 10:22 by CAITY KELLEY MD As dictated by NUHA AKUR MT: JOSÉ MIGUEL Name: KAYLIN MOSQUERA Account: [id number] : 1965 Visit Date: 07/29/2011 Document: [id number] documented in this encounter Plan of Treatment Not on filedocumented as of this encounter Visit Diagnoses Not on filedocumented in this encounter
--- OUTSIDE RECORDS SUMMARY | 2022-09-14 11:53 | XMS_ITS | Encounter Summary ---
:1965 Author Organization [place] Address [facility] [place] [address] Care Team Providers Name Role Phone Unavailable Primary Care Provider Unavailable Encounter Details Date Type Department Care Team Description 04/15/2009 Emergency room [facility] Evelio Lamar MD Hospital Results [address] [place] [address] (Wo rk) Social History Tobacco [...] She states that her pain clinic in [place] gave her new prescriptions to be filled [...] pain. SOCIAL HISTORY: The patient lives in [place]. Her primary care physician is Dr. Holley De La Rosa in [place], [place]. Her chronic pain doctor is Dr. Garcia at [facility] in [place]. Thepatient has had previous cervical and lumbar [...] I did speak with Dr. Torres the [facility] who review her records with [...] Compazine. I gave her referral information for [facility] if she has further problems while she was in [place]. She plans to be here another 1-2 weeks. DISCHARGE DIAGNOSES: 1. Acute exacerbation of chronic back pains. 2. Nausea. Electronically signed on 05/01/2009 06:49 by EVELIO LAMAR MD MT: [id number] Name: KAYLIN MOSQUERA MRN: [id number] Account: [id number] : 1965 Visit Date: 04/15/2009 Document: [id number] cc: Oc De La Rosa MD documented in this encounter Plan of Treatment Not on filedocumented as of this encounter Visit Diagnoses Not on filedocumented in this encounter
--- OUTSIDE RECORDS SUMMARY | 2022-09-14 11:53 | XMS_ITS | Encounter Summary ---
:1965 Author Organization [facility] Address [address] [place] [address] Care Team Providers Name Role Phone Jose oHlden MD Primary Care Provider [phone] Encounter Details Date Type Department Care Team Description 03/06/2019 Consent for [facility] Procedure[facility]Treat [facility] Tony Alvarado MD [facility] Pain Management [address] TREATMENT [address] [place] [phone] Social History Tobacco Use Types Packs/Day Years [...] filedocumented in this encounter Care Teams Sales Service Coordinator Relationship Specialty Start Date End Date Jose Holden MD PCP - General Otolaryngology 12/14/[address] [place] [address] documented as of this encounter
--- OUTSIDE RECORDS SUMMARY | 2022-09-14 11:53 | XMS_ITS | Encounter Summary ---
:1965 Author Organization [place] Address [address] [place] [address] Care Team Providers Name Role Phone Unavailable Primary Care Provider Unavailable Encounter Details Date Type Department Care Team Description 04/15/2009 Historic Results INTERFACED REPORT Kai Munoz MD [address] [facility] [address] [place] [address] (Wo rk) Social History Tobacco [...]
--- OUTSIDE RECORDS SUMMARY | 2022-09-14 11:53 | XMS_ITS | Encounter Summary ---
:1965 Author Organization [facility] Address [address] [place] [address] Care Team Providers Name Role Phone Jose Holden MD Primary Care Provider [phone] Encounter Details Date Type Department Care Team Description 04/09/2019 Notes/Orders [facility] Neuroscience Jose Carias, Center Training Program Assistant apy PT [address] [place] [address] [place] [address] [phone] (Wo rk) Social History Tobacco Use Types [...] CDT PHYSICAL THERAPY DISCHARGE NOTE Angie Mosquera [id number] Payor: MEDICARE / Plan: MEDICARE / Product [...] on filedocumented in this encounter Care Teams Construction Project Manager Relationship Specialty Start Date End Date Jose Holden MD PCP - General Otolaryngology 12/14/17 [place] [address] documented as of this encounter
--- OUTSIDE RECORDS SUMMARY | 2022-09-14 11:53 | XMS_ITS | Encounter Summary ---
:1965 Author Organization [facility] Address [address] [address] Care Team Providers Name Role Phone Jose Holden MD Primary Care Provider [phone] Reason for Referral Procedure/Equipment (Routine) - Closed Specialty Diagnoses / Procedures Referred By Contact Refer red To Contact Diagnoses Intractable acute post-traumatic headache Blanka Mead APRN, CN P [address] [place] [address] Referral ID Status Reason Start Date Expiration Date Visits Requ ested Visits Authorized [id number] Closed 02/16/2019 05/17/2020 1 1 Scheduling Instructions . herapies (Routine) - Closed Specialty Diagnoses / Procedures Referred By Contact Refer red To Contact Diagnoses Impairment of balance Dizziness Blanka Mead APRN, CN P [address] [place] [address] Referral ID Status Reason Start Date Expiration Date Visits Requ ested Visits Authorized [id number] Closed 02/16/2019 04/17/2019 1 1 Scheduling Instructions Your provider has recommended an appoint ment with a [facility] Physical Therapist. Please stop at the clinic check out desk for assistance with scheduling or if you prefer to call for your appointment you may call [facility] Outpatient Rehabilitation at [phone]. We suggest you call your [facility] insurance company about your coverage and benefits for this appointment. Reason for Visit Reason Comments Consult, New Patient Consult/Transfer Care (Routine) - Closed Specialty Diagnoses / Procedures Referred By Contact Refer red To Contact Diagnoses Traumatic brain injury, without loss of consciousness, initial encounter ([facility]) Tony Pittman MD [address] [place] [address] Referral ID Status Reason Start Date Expiration Date Visits Requ ested Visits Authorized [id number] Closed 12/26/2018 03/26/2020 1 1 Encounter Details Date Type Department Care Team Description 02/16/2019 Office Visit [facility], Impairment of balance (Primary Dx); [facility] Blanka Coulter s; Physical Medicine NIKKY Chavez, Intractable acute post-traum atic headache [address] [facility] [place] [address] [address] [facility] [phone] [place] [address] Social History Tobacco Use Types [...] Body Mass Index 33.01 12/26/2018 1:48 PM CLEAN ROOM TECHNICIAN documented in this encounter Patient Instructions [...] If you need to reschedule, please call [phone] as soon as you know you will not be able to make the appointment. If you have any questions or concerns, please call the clinic at [phone]. ?? If tests are needed, you will [...] treatment plan is please contact us at [phone] or send us a secure message via [employer]. If you need follow-up in the future, please call [phone] for an appointment. If you cannot get a time that satisfies you, please let us know what times work for you and we will do our best to accommodate you. Thank you for choosing Blanka Mead APRN, CNP and [facility]. documented in this [...] ER right away. She was seen at [facility]. According to the note from [facility]: the patient fell approximately 20 hours before being seenon 11/10/2018 with a presentation of headache neck pain left shoulder pain left knee pain left hip pain out of proportion to the mechanism of injury. The patient's a 53-year-old female well-known to [facility] with multiple comorbid medical and psychosocial [...] She sees Dr. Bullard with neurosurgery at [facility]. She has a past medical history [...] ??? medical cannabis patient certified Take 1 [place] by mouth . ??? naloxone (NARCAN) 4 [...] EXAM: XR CERVICAL SPINE AP/LAT UPRIGHT LOCATION: [facility] DATE/TIME: 12/26/2018 1:44 PM ?? INDICATION: [...] able to review her head CT from [facility] as well as her cervical spine CT. Findings obtained by [place] on 11/10/2018 showed CSF spaces within normal [...] headache documented in this encounter Care Teams Office Services Assistant Relationship Specialty Start Date End Date Jose Holden MD PCP - General Otolaryngology 12/14/17 [facility] [place] [place] [address] documented as of this encounter
--- OUTSIDE RECORDS SUMMARY | 2022-09-14 11:53 | XMS_ITS | Encounter Summary ---
:1965 Author Organization [facility] Address [address] [place] [address] Care Team Providers Name Role Phone Jose Holden MD Primary Care Provider [phone] Encounter Details Date Type Department Care Team Description 02/06/2019 Consent for [facility] Tony Alvarado MD FOR TX/PROCEDURE ent Pain Management [address] [place] [phone] Social History Tobacco Use Types Packs/Day Years [...] on filedocumented in this encounter Care Teams Event Representative Relationship Specialty Start Date End Date Jose Holden MD PCP - General Otolaryngology 12/14/[address] [place], [place] [phone] documented as of this encounter
--- OUTSIDE RECORDS SUMMARY | 2022-09-14 11:53 | XMS_ITS | Encounter Summary ---
:1965 Author Organization [place] Address [facility] [place] [address] Care Team Providers Name Role Phone Unavailable Primary Care Provider Unavailable Encounter Details Date Type Department Care Team Description 04/15/2009 Results Only [facility] Evelio Munoz MD Hospital Results [address] [place] [address] (Wo rk) Social History Tobacco [...]
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
--- OUTSIDE RECORDS SUMMARY | 2022-09-14 11:53 | XMS_ITS | Encounter Summary ---
:1965 [facility] Address [address] [place] [address] Care Team Providers Name Role Phone Jose Holden MD Primary Care Provider [phone] Reason for Referral Procedure/Equipment (Routine) - Closed Specialty Diagnoses / Procedures Referred By Contact Refer red To Contact Diagnoses Dizziness Concussion with loss of consciousness of 30 minutes or less, subsequent encounter Alyse Carias, PT [address] [place] [address] Referral ID Status Reason Start Date Expiration Date Visits Requ ested Visits Authorized [id number] Closed 03/06/2019 06/04/2020 20 20 Scheduling Instructions . Reason for Visit Reason Comments Concussion Therapies (Routine) - Closed Specialty Diagnoses / Procedures Referred By Contact Refer red To Contact Diagnoses Impairment of balance Dizziness Blanka Mead, INDUSTRIAL COOK, CN P [address] [place] [address] Referral ID Status Reason Start Date Expiration Date Visits Requ ested Visits Authorized [id number] Closed 02/16/2019 04/17/2019 1 1 Encounter Details Date Type Department Care Team Description 03/06/2019 Office Visit Alyse Bee Dizziness (Primary Dx); [facility] A, PT Concussion with loss of consciousness of 30 minutes or less, subsequent encounter Physical Therapy [address] [place] [address] [phone] Social History Tobacco Use Types Packs/Day Years [...] impacting her status (scheduled for surgery at [facility] on 02/28/19). Tinnitus- scheduled for hearing assessment [...] ER right away. She was seen at [facility]. ?? She has a past medical [...] limited function due to PMH Lives in [place]. Independent with ADLs, driving. Current Level of Function: Currently not-employed. Lives alone in apartment. Difficulty bending down She does endorse LOS in home setting. Previous Therapy for This Condition: PT for neck (01/23/19- refaxed orders) Patient Goals: Return to previous level of function and Increased function OBJECTIVE Posture/Observations: alert, oriented, cooperative. forward head posturing. Carrying multiple bags and able to picker packer from floor to chair without LOS. Functional [...] within her allowable cervical ROM). Access Code: [email or web address] URL: [email or web address] Date: 03/06/2019 Prepared by: Alyse Carias Exercises Standing Gaze Stabilization with Head Rotation - 1-3 reps - 30-40 seconds - 3x daily - 7x weekly Education regarding Rule of 2 -Discussed option of closer location to her home yet noted she would be able to attend at [facility]. Patient's Response to Therapy: Good Home Program [...] encounter documented in this encounter Care Teams Foreign Languages Professor Relationship Specialty Start Date End Date Jose Holden MD PCP - General Otolaryngology 12/14/17 [facility] [place] [address] documented as of this encounter
--- OUTSIDE RECORDS SUMMARY | 2022-09-14 11:53 | XMS_ITS | Encounter Summary ---
:1965 Author Organization [facility] Address [address] [place] [address] Care Team Providers Name Role Phone Jose Holden MD Primary Care Provider [phone] Reason for Visit Reason Comments Medication Request Encounter Details Date Type Department Care Team Description 12/08/2019 Telephone Careline Unknown, Physician Medication Request [address] [place], [place] [address] [place], [place] [phone] (Wo rk) Social History Tobacco Use Types [...] pain medication. Pt advised to surgeon at [place]. UM LIBRARIAN documented in this encounter Plan of Treatment Not on filedocumented as of this encounter Visit Diagnoses Not on filedocumented in this encounter Care Teams Remote Sensing Advisor Relationship Specialty Start Date End Date Jose Holden MD PCP - General Otolaryngology 12/14/17 [address] [place] [address] documented as of this encounter
--- OUTSIDE RECORDS SUMMARY | 2022-09-14 11:53 | XMS_ITS | Encounter Summary ---
:1965 Author Organization [facility] Address [address] [address] Care Team Providers Name Role Phone Jose Holden MD Primary Care Provider [phone] Reason for Visit Reason Comments Revisit trigger point injections/occ ipital nerve blocks Encounter Details Date Type Department Care Team Description 03/06/2019 Office Visit [facility], Bilateral occ ipital neuralgia (Primary Dx); [facility] Carole Bowden Myalgia; Pain Management [address] Cervical vertebral fusion; [address] 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 Tony Pittman MD Pain Medicine documented in this encounter Progress Notes Toyn Pittman MD - 03/06/2019 2:45 PM CDT [facility] Follow-up Visit 03/06/2019 [...] Oxycodone 5 mg Q6H - Prescribes by [facility], has been taking [...] at a pain clinic in the past. [facility] physical therapy: Past [...] cervical fusion 2016 Dr. Ihsan Brooke, [facility] past surgical history reviewed with [...] ??? medical cannabis patient certified Take 1 [place] by mouth . ??? naloxone (NARCAN) 4 [...] facility-administered medications prior to visit. [place] and [place] Prescription Monitoring Program reviewed Allergies: [...] in her mother. Social history:she lives in [place], [place].she is not currently working. Smokin/2 ppd. [...] limited. Significant posterior surgical deformity of neck. Deaf/Hard Of Hearing Specialist to palpation bilateral levator scapulae, splenius, trapezius [...] These are unchanged from previous. Barriers: 1. [facility] opioid use Plan: 1. [...] Pain Medicine Physical Medicine and Rehabilitation [facility] Pain Management This note created [...] myelopathy documented in this encounter Care Teams Tableau Architect Relationship Specialty Start Date End Date Jose Holden MD PCP - General Otolaryngology 12/14/[address] [place] [address] documented as of this encounter
--- OUTSIDE RECORDS SUMMARY | 2022-09-14 11:54 | XMS_ITS | Encounter Summary ---
:1965 Author [facility] Address [address] [place] [address] Care Team Providers Name Role Phone Jose Holden MD Primary Care Provider [phone] Encounter Details Date Type Department Care Team [...] 11/10/2018 12:00 AM R esults for this EP TECHNOLOGIST procedure are i n the results section. documented in this encounter Results CT SCAN SPINE--SCAN (11/10/2018 12:00 AM EP TECHNOLOGIST) Anatomical Region Laterality Modality Other Specimen (Source) Anatomical Location Collection Method / Collectio n Time Received Time / Laterality Volume 11/10/2018 Narrative This result has an attachment that is no t available. Phy No Primary/Referring DUMMY/OTHER/AR documented in this encounter Visit Diagnoses Not on filedocumented in this encounter Care Teams Car Porter Relationship Specialty Start Date End Date Jose Holden MD PCP - General Otolaryngology 12/14/[address] [place] [address] documented as of this encounter
--- OUTSIDE RECORDS SUMMARY | 2022-09-14 11:54 | XMS_ITS | Encounter Summary ---
:1965 Author Organization [facility] Address [address] [address] Care Team Providers Name Role Phone Jose Holden MD Primary Care Provider [phone] Reason for Visit Reason Comments APPOINTMENT REQUEST Encounter Details Date Type Department Care Team Description 11/13/2018 Telephone [facility] Pete Gonzalez MD APPOINTMENT REQUEST [facility] [address] [place], [place] [address]E Neurosurgery/Ortho [place], [place] [address] [address] [place] [address] [phone] Social History Tobacco Use Types Packs/Day Years [...] Jana Marcos - 11/16/2018 3:46 PM CST Beef Trimmer spoke to the pt and helped schedule an appt with Dr. Gonzalez on 12/26/17 at 1:40PM. Pt was in agreement of date, time and location. Jana Marcos 11/16/2018, 3:46 PM OR RANCH ANIMAL CARETAKER Chava Simon RN - 11/16/2018 1:15 PM CST Per Sirisha Rolandson Gunnar, REAL ESTATE SALESPERSON: patient can follow up with Dr. Gonzalez with repeat upright cervical XRs. Rachid: please call patient and assist in scheduling her for an appointment with Dr. Gonzalez at next available with XR Chava Simon RN 11/16/2018, 1:20 PM OR RANCH ANIMAL CARETAKER Chava Simon RN - 11/16/2018 11:15 AM [...] Walker RN - 11/15/2018 11:21 AM CST [facility]- still have not received CD from [facility]. If patient calls back, please let her [...] plan? Chava Simon RN 11/13/2018, 9:12 AM OR RANCH ANIMAL CARETAKER Michael Cruz - 11/13/2018 8:23 AM CST Patient called in requesting for an appointment with Dr. Gonzalez himself only and not APPs. She states she fell on ice last week 11/09/18 and went to [facility] to be evaluated. She reports the left [...] Gonzalez to ensure everything is well as [facility] is not theones who did surgery on her and cannot compare this to before and after surgery. Beef Trimmer called [facility] and spoke with Mandy in the film room. They are not able to push imaging but they can send a CD. Address was provided for her of mail stop [id number] [facility] Attn: Dr. Gonzalez. She states the report will also be included in the CD. She then transferred me to Medical Records. Beef Trimmer spoke with Shauna who states patient will need to sign an CODI to obtain ED note from 11/09/18 to be sent to us as they are not affiliated with [employer] system. Beef Trimmer reached patient and relayed she would need [...] being sent. Michael Cruz 11/13/2018, 8:43 AM OR RANCH ANIMAL CARETAKER documented in this encounter Plan of Treatment Not on filedocumented as of this encounter Visit Diagnoses Diagnosis S/P cervical spinal fusion - Primary Arthrodesis status documented in this encounter Care Teams Supervisor Silvering Department Relationship Specialty Start Date End Date Jose Holden MD PCP - General Otolaryngology 12/14/17 [place] [address] documented as of this encounter
--- OUTSIDE RECORDS SUMMARY | 2022-09-14 11:54 | XMS_ITS | Encounter Summary ---
:1965 Author Organization [facility] Address [address], [place] [address] Care Team Providers Name Role Phone Jose Holden MD Primary Care Provider [phone] Reason for Visit Reason Comments Revisit Encounter Details Date Type Department Care Team Description 08/14/2018 Office Visit [facility] Pete Gonzalez, Neck pain (Primary [facility] MD Dx) Neurosurgery/Ortho [address] [facility] Spine [address] [facility]. [place], [place] [address] [address] [phone] Social History Tobacco Use Types Packs/Day Years [...] Surgery center (4th floor [address], [place]).prior to your next appointment. Follow up: with [...] your understanding. Please call the Neurosurgery Center [phone] with any further questions or concerns or [...] Cervicalgia documented in this encounter Care Teams Welding Setter Relationship Specialty Start Date End Date Jose Holden MD PCP - General Otolaryngology 12/14/[address] [facility] [place] [address] documented as of this encounter
--- OUTSIDE RECORDS SUMMARY | 2022-09-14 11:54 | XMS_ITS | Encounter Summary ---
:1965 Author [facility] Address [address] [place] [address] Care Team Providers Name Role Phone Jose Holden MD Primary Care Provider [phone] Reason for Referral Therapies (Routine) - Closed Specialty Diagnoses / Procedures Referred By Contact Refer red To Contact Diagnoses S/P cervical spinal fusion Pete Gonzalez MD [address] [place] [address] Referral ID Status Reason Start Date Expiration Date Visits Requ ested Visits Authorized [id number] Closed 06/26/2018 08/25/2018 1 1 Scheduling Instructions Your provider has recommended an appoint ment with a [facility] Physical Therapist. Please stop at the clinic check out desk for assistance with scheduling or if you prefer to call for your appointment you may call [facility]patient [facility] [place] at [phone]. We suggest yo u call your health insurance company about your coverage and benefits for this appo intment. Reason for Visit Reason Comments RESULTS, TEST Orders Needed Encounter Details Date Type Department Care Team Description 06/22/2018 Telephone [facility] Pete Gonzalez MD RESULTS, TEST; Orders [facility] [address] [facility] eded Neurosurgery/Ortho S [place] [address] [place] [address] [place] [id number] (Wo rk) Social History Tobacco Use Types [...] 08/14/18 at 1:00pm with Dr. Gonzalez. Michael Porfiiro Cruz 06/28/2018, 11:51 AM Chava Simon RN [...] getting a stimulator or morphine pump through [facility]. She is wondering if she should wait and discuss possible surgical options with Dr. Gonzalez or just get the stimulator or morphine pump? Please advise. Chava Simon RN 06/28/2018, 8:45 AM Michael Cruz - 06/28/2018 8:25 AM CDT Patient calling in regards to her imaging results. Support Technician relayed message from Lois Pham PA-C. Patient states that she would like a return call. Patient states she doesn't understand why there are no acute concerns? She will be seeing [facility] to discuss getting a stimulator or morphine pump. Patient would like to know if she should move forward with this from Neurosurgery standpoint. Please call patient to further discuss and advise. Michael Cruz 06/28/2018, 8:27 AM Chava Simon RN - 06/28/2018 8:24 AM CDT [facility] Chava Simon RN 06/28/2018, 8:26 AM Lois [...] Michael Cruz - 06/26/2018 11:18 AM CDT Support Technician reached patient and relayed message below to her. Patient expressed her appreciation. Per herrequest order has been sent to [facility] outpatient rehabilitation services at [phone] with a note to have them call patient to schedule. Patient aware they will reach out to schedule her for PT. She also states she picked up a copy of her imaging and they relayed that they had alreadysent one. Support Technician called their radiology department and spoke to Selena who states a CD was not mailed out and she is not sure why. She took down clinic address of [address] [address] and stated she would send one out [...] sure she has had this sent from [facility] for team to review. Chava Simon [...] of CT and MRIthat were done at [facility] on 06/20. Informed pt that Dr. [...] status documented in this encounter Care Teams Security Administrator Relationship Specialty Start Date End Date Jose Holden MD PCP - General Otolaryngology 12/14/17 [facility] [place] [address] documented as of this encounter
--- OUTSIDE RECORDS SUMMARY | 2022-09-14 11:54 | XMS_ITS | Encounter Summary ---
:1965 Author Organization [facility] Address [address] [place] [address] Care Team Providers Name Role Phone Jose Holden MD Primary Care Provider [phone] Encounter Details Date Type Department Care Team Description 07/10/2018 Consent for [facility] Procedure/Treat [facility] Tony Alvarado MD FOR TX/PROCEDURE ent Pain Management [address] [place] [phone] Social History Tobacco Use Types Packs/Day Years [...] on filedocumented in this encounter Care Teams Geoscientist Relationship Specialty Start Date End Date Jose Holden MD PCP - General Otolaryngology 12/14/[address] [place], [place] [id number] documented as of this encounter
--- OUTSIDE RECORDS SUMMARY | 2022-09-14 11:54 | XMS_ITS | Encounter Summary ---
:1965 Author Organization [facility] Address [address] [place] [address] Care Team Providers Name Role Phone Jose Holden MD Primary Care Provider [phone] Reason for Visit Reason Comments Revisit repeat injections Occipital VS Trigger point Encounter Details Date Type Department Care Team Description 02/06/2019 Office Visit [facility], Bilateral occ ipital neuralgia (Primary Dx); [facility] Carole Bowden Myalgia; Pain Management [address] Fibromyalgia; [address] 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 Tony Pittman MD Pain Medicine documented in this encounter Progress Notes Tony Pittman MD - 02/06/2019 2:30 PM CDT [facility] Follow-up Visit 02/06/2019 [...] 5 mg Q6H - Prescribes by [facility], has been taking for [...] a pain clinic in the past. [facility] physical therapy: Past Acupuncture: [...] anterior cervical fusion 2017 Dr. I[facility], [facility] [...] ??? medical cannabis patient certified Take 1 [place] by mouth . ??? naloxone (NARCAN) 4 [...] facility-administered medications prior to visit. [place] and [place] Prescription Monitoring Program reviewed Allergies: Allergies Allergen [...] in her mother. Social history:she lives in [place], [place].she is not currently working. Smokin/2 ppd. [...] These are unchanged from previous. 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 Patient education: I [...] myelopathy documented in this encounter Care Teams Java Web Engineer Relationship Specialty Start Date End Date Jose Holden MD PCP - General Otolaryngology 12/14/[address] [place] [address] documented as of this encounter
--- OUTSIDE RECORDS SUMMARY | 2022-09-14 11:54 | XMS_ITS | Encounter Summary ---
:1965 Author Organization [facility] Address [address], [place] [address] Care Team Providers Name Role Phone Jose Holden MD Primary Care Provider [phone] Reason for Visit Reason Comments Forms Encounter Details Date Type Department Care Team Description 07/11/2018 Telephone [facility] Pete Gonzalez MD Forms Center [facility] [address] [facility] [place] [address] [address] [place] [address] [phone] Social History Tobacco Use Types Packs/Day Years [...] on filedocumented in this encounter Care Teams Church Administrator Relationship Specialty Start Date End Date Jose Holden MD PCP - General Otolaryngology 12/14/17 [place] [address] documented as of this encounter
--- OUTSIDE RECORDS SUMMARY | 2022-09-14 11:54 | XMS_ITS | Encounter Summary ---
:1965 Author Organization [facility] Address [address] [place] [address] Care Team Providers Name Role Phone Jose Holden MD Primary Care Provider [phone] Encounter Details Date Type Department Care Team Description 08/14/2018 Consent for [facility] Procedure/Treat [facility] Tony lAvarado MD FOR TX/PROCEDURE ent Pain Management [address] [place] [phone] Social History Tobacco Use Types Packs/Day Years [...] on filedocumented in this encounter Care Teams Coarse Wire Drawer Relationship Specialty Start Date End Date Jose Holden MD PCP - General Otolaryngology 12/14/[address] [place], [place] [id number] documented as of this encounter
--- OUTSIDE RECORDS SUMMARY | 2022-09-14 11:54 | XMS_ITS | Encounter Summary ---
:1965 Author Organization [facility] Address [address] [place] [address] Care Team Providers Name Role Phone Jose Holden MD Primary Care Provider [phone] Reason for Visit Reason Comments Revisit Bilateral cervical/thoracic trigger point injections Encounter Details Date Type Department Care Team Description 06/20/2018 Office Visit [facility] Myalgia (Primary Dx); Neuroscience Center Pain RMD H/O cervical spinal arthrodesis; Management [address] Cervical vertebral fusion; [address] [place], [place] Fibromyalgia; [place] [address] Tobacco use disorder; [phone] Status post tot al left knee replacement [...] ALL states. As laws can change management analyst time, one should review the state [...] treatment plan is, please contact me via [employer] online messaging or call the office [...] Oxycodone 5 mg Q6H - Prescribes by [facility], has been taking [...] at a pain clinic in the past. [facility] physical therapy: Past [...] anterior cervical fusion 2016 Dr. Ihsan Brooke, [facility] past [...] facility-administered medications prior to visit. [place] and [place] Prescription Monitoring Program reviewed Allergies: Allergies Allergen [...] in her mother. Social history:she lives in [place], [place].she is not currently working. Smokin/2 ppd. 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 Patient education: I went over the above diagnoses and treatment plan with her and answered all of her questions. 2. Imaging review: None 3. Exercise program: Regular exercise and activity 4. Medications: No changes. Do not recommend filler leaf cutter long opioid use, continue to decrease use until [...] behalf by Gillian Harding, a trained medical biller. The creation of this record [...] replacement documented in this encounter Care Teams Bradley Linebacker Crewmember Relationship Specialty Start Date End Date Jose Holden MD PCP - General Otolaryngology 12/14/17 [facility] [place] [address] documented as of this encounter
--- OUTSIDE RECORDS SUMMARY | 2022-09-14 11:54 | XMS_ITS | Encounter Summary ---
:1965 Author Organization [facility] Address [address], [place] [address] Care Team Providers Name Role Phone Jose Holden MD Primary Care Provider [phone] Reason for Referral Therapies (Routine) - Closed Specialty Diagnoses / Procedures Referred By Contact Refer red To Contact Diagnoses S/P cervical spinal fusion Pete Gonzalez MD [address] [place] [address] Referral ID Status Reason Start Date Expiration Date Visits Requ ested Visits Authorized [id number] Closed 08/16/2018 10/15/2018 1 1 Scheduling Instructions [facility] has recommended an appoin tment with a [facility] Physical Therapist. Please stop at the clinic check out desk for assistance with scheduling or if you prefer to call for your appointment you may call [facility] Outpatient Rehabilitation at [phone]. We suggest you call your [facility] insurance company about your coverage and benefits for this appointment. Encounter Details Date Type Department Care Team Description 07/07/2018 Telephone [facility] Neuroscience Pete Gonzalez MD Center Neurosurgery/Ortho [address] [facility] Spine [place], [place] [address] [place] [address] [place] [address] [phone] Social History Tobacco Use Types Packs/Day Years [...] Del Toro - 08/16/2018 1:41 PM CDT Roller Coaster Designer contacted patient 08/16-faxed order to [facility] [phone] per patient request Chava Simon RN - [...] Associated Diagnoses [facility] Referral Routine S/P cervical spinal fusi on Ordered: 08/16/2018 documented as of this encounter Visit Diagnoses Diagnosis S/P cervical spinal fusion - Primary Arthrodesis status documented in this encounter Care Teams Gravity Meter Observer Relationship Specialty Start Date End Date Jose Holden MD PCP - General Otolaryngology 12/14/17 [place] [address] documented as of this encounter
--- OUTSIDE RECORDS SUMMARY | 2022-09-14 11:54 | XMS_ITS | Encounter Summary ---
:1965 Author Organization [facility] Address [address] [place] [address] Care Team Providers Name Role Phone Jose Holden MD Primary Care Provider [phone] Encounter Details Date Type Department Care Team Description 03/24/2018 [facility] Chava Simon RN [place] [facility] Spine [address] [place] [address] Social History Tobacco Use Types Packs/Day [...] RN 03/24/2018, 10:24 AM Sirisha Rankin, NIKKY, BUSINESS OFFICE TECHNICIAN - 03/24/2018 9:52 AM CDT Continue to monitor symptoms. No change in plan/appointment at this time. We will review cervical CTwhen it is available. Sirisha Jefferson APRN, BUSINESS OFFICE TECHNICIAN 03/24/2018, 9:53 AM Chava Simon RN - 03/24/2018 9:23 AM CDT Patient called and state she was in a little accident last night. She ended up going to [facility]. They did imaging of neck and [...] positioning. Patient states she is able to corn picker a coffee cup with left hand. [...] clinic on 03/27/18 which were done at [facility]) Chava Simon RN 03/24/2018, 9:37 AM documented in this encounter Plan of Treatment Not on filedocumented as of this encounter Visit Diagnoses Not on filedocumented in this encounter Care Teams Senior Compensation Consultant Relationship Specialty Start Date End Date Jose Holden MD PCP - General Otolaryngology 12/14/[address] [place] [address] documented as of this encounter
--- OUTSIDE RECORDS SUMMARY | 2022-09-14 11:54 | XMS_ITS | Encounter Summary ---
:1965 [facility] Address [address] [place] [address] Care Team Providers Name Role Phone Jose Holden MD Primary Care Provider [phone] Encounter Details Date Type Department Care Team [...] - General Otolaryngology 12/14/17 [address] [place] [address] documented as of this encounter
--- OUTSIDE RECORDS SUMMARY | 2022-09-14 11:54 | XMS_ITS | Encounter Summary ---
:1965 Author [facility] Address [address] [place] [address] Care Team Providers Name Role Phone Jose Holden MD Primary Care Provider [phone] Reason for Referral Therapies (Routine) - Closed Specialty Diagnoses / Procedures Referred By Contact Refer red To Contact Diagnoses S/P cervical spinal fusion Pete Gonzalez MD [facility] [address] [place] [address] Referral ID Status Reason Start Date Expiration Date Visits Requ ested Visits Authorized [id number] Closed 12/26/2018 02/24/2019 1 1 Scheduling Instructions Your provider has recommended an appoint ment with a [facility] Physical Therapist. Please stop at the clinic check out desk for assistance with scheduling or if you prefer to call for your appointment you may call [facility] Out[facility] Rehabilitation at [phone]. We suggest you call your main campus medical center insurance company about your coverage and benefits for this appointment. ITATIVE EXECUTIVE RESEARCHER Reason for Visit Reason Comments Revisit Encounter Details Date Type Department Care Team Description 12/26/2018 Office Visit [facility] Pete Gonzalez, S/P miguelito al spinal Neuroscience Center fusion (Primary Dx) [facility] [address] [facility] [address] [place] [address] [place] [address] [phone] Social History Tobacco Use Types Packs/Day Years [...] Comments Blood Pressure 115/72 12/26/2018 1:48 PM QUALITATIVE EXECUTIVE RESEARCHER Pulse 70 12/26/2018 1:48 PM QUALITATIVE EXECUTIVE RESEARCHER Temperature 36.5 ??C (97.7 ??F) 12/26/2018 1:48 PM QUALITATIVE EXECUTIVE RESEARCHER Respiratory Rate - - Oxygen Saturation - - Inhaled Oxygen Concentration - - Weight 71.2 kg (157 lb) 12/26/2018 1:48 PM QUALITATIVE EXECUTIVE RESEARCHER Height 152.4 cm (5') 12/26/2018 1:48 PM QUALITATIVE EXECUTIVE RESEARCHER Body Mass Index 30.66 12/26/2018 1:48 PM QUALITATIVE EXECUTIVE RESEARCHER documented in this encounter Patient Instructions Patient [...] your understanding. Please call the Neurosurgery Center [phone] with any further questions or concerns or if your symptoms worsen. Thank you for coming to see us today. We are your partner. ITATIVE EXECUTIVE RESEARCHER documented in this encounter Progress Notes Pete [...] at her current physical therapy Center at [facility] and also continued pain management [...] is prone to typos and grammatical errors. ITATIVE EXECUTIVE RESEARCHER documented in this encounter Plan of Treatment Scheduled Referrals Name Type Priority Associated Diagnoses Order S [facility] Physical Therapy Referral Routine S/P cervical spinal fusi on Ordered: 12/26/2018 documented as of this encounter Visit Diagnoses Diagnosis S/P cervical spinal fusion - Primary Arthrodesis status documented in this encounter Care Teams Well Puller Head Relationship Specialty Start Date End Date Jose Holden MD PCP - General Otolaryngology 12/14/17 [place] [address] documented as of this encounter
--- OUTSIDE RECORDS SUMMARY | 2022-09-14 11:54 | XMS_ITS | Encounter Summary ---
:[address] [facility] Address [address] [place] [address] Care Team Providers Name Role Phone Jose Holden MD Primary Care Provider [phone] Reason for Visit Reason Comments UPDATE Encounter Details Date Type Department Care Team Description 07/07/2018 Telephone [employer] Neuroscience Gume Pittman, [facility] [address] [place] [address] [place] [address] [phone] (Wo rk) Social History Tobacco Use Types [...] Arenas RN - 07/07/2018 12:44 PM CDT Bottom Turner called patient, she states she has left neck/shoulder pain that did not improve after TPI's last week. Pt shares her right side of neck/shoulder is getting tight again and she is having headaches. Pt wants to proceed with occipital nerve blocks for her headache. Bottom Turner offered patient appointment 07/10 which she accepted. [...] in this encounter Care Teams Director Of Manufacturing Operations Relationship Specialty Start Date End Date Jose Holden MD PCP - General Otolaryngology 12/14/17 [place] [address] documented as of this encounter
--- OUTSIDE RECORDS SUMMARY | 2022-09-14 11:54 | XMS_ITS | Encounter Summary ---
:1965 Author [facility] Address [address] [place] [address] Care Team Providers Name Role Phone Jose Holden MD Primary Care Provider [phone] Reason for Visit Reason Comments Medication Questions FYI Encounter Details Date Type Department Care Team Description 03/01/2018 Telephone [facility] Pete Gonzalez MD Medication Questions; Neuroscience Center [address] [place] [address] FY I Neurosurgery/Ortho S pine [address] [place] [address] [place] [address] [phone] (Wo rk) Social History Tobacco Use Types [...] in this encounter Care Teams Director Of Marketing Google Performance Ads Relationship Specialty Start Date End Date Jose Holden MD PCP - General Otolaryngology 12/14/17 [facility] [place] [address] documented as of this encounter
--- OUTSIDE RECORDS SUMMARY | 2022-09-14 11:54 | XMS_ITS | Encounter Summary ---
:1965 Author Organization [facility] Address [address] [place] [address] Care Team Providers Name Role Phone Jose Holden MD Primary Care Provider [phone] Reason for Referral Consult/Transfer Care (Routine) - Closed Specialty Diagnoses / Procedures Referred By Contact Refer red To Contact Diagnoses Traumatic brain injury, without loss of consciousness, initial encounter (HRC) Tony Pittman MD [address] [place] [address] Referral ID Status Reason Start Date Expiration Date Visits Requ ested Visits Authorized [id number] Closed 12/26/2018 03/26/2020 1 1 Scheduling Instructions Your provider [facility]. You may call to schedule your appointment. If you prefer, a dental scheduler will contact you [facility] the next 3 business days to assist you in setting up this appointment. OL CLERK Reason for Visit Reason Comments Revisit Bilateral cervical/thoracic trigger point injections Encounter Details Date Type Department Care Team Description 12/26/2018 Office Visit Tony Huggins occipital neuralgia (Primary Dx); Neuroscience Center Pain RMD Myalgia; Management [address] H/O cervical spinal arthrodesis; [address] [place], [place] Traumatic brain injury, with out loss of consciousness, initial encounter (HRC) [place] [phone] Social History Tobacco Use Types Packs/Day Years [...] Comments Blood Pressure 115/72 12/26/2018 2:48 PM SCHOOL CLERK Pulse 70 12/26/2018 2:48 PM SCHOOL CLERK Temperature - - Respiratory Rate - - [...] treatment plan is, please contact me via [employer] online messaging or call the office at and ask to speak to a nurse. Tony Pittman MD Pain Medicine OL CLERK documented in this encounter Progress Notes Tony Pittman MD - 12/26/2018 2:15 PM CST [facility] Follow-up Visit 08/14/2018 Interim [...] Patient continues to get chronic oxycodone from [facility] in [place] and does not planon decreasing her dosage. [...] Oxycodone 5 mg Q6H - Prescribes by [facility], has been taking for [...] at a pain clinic in the past. [facility] physical therapy: Past Acupuncture: [...] fusion 2016 Dr. Ihsan Brooke, [facility] past surgical history reviewed with [...] ??? medical cannabis patient certified Take 1 [place] by mouth . ??? naloxone (NARCAN) 4 [...] Gain No facility-administered medications prior to visit. MD and OR Prescription Monitoring Program reviewed Allergies: [...] in her mother. Social history:she lives in [place], [place].she is not currently working. Smokin/2 ppd. [...] to traumatic brain injury clinic. 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 Patient education: [...] Physical Medicine and Rehabilitation [facility] This document serves as a record of services personally performed by Tony Pittman MD. It was created on his behalf by Gillian Harding, a trained medical record consultant. The creation of this record is based on the scribe's personal observations and the provider's statements to her. The document has been checked and approved by the attending provider. OL CLERK documented in this encounter Plan of Treatment Scheduled Referrals Name Type Priority Associated Diagnoses Order S [facility] Referral Routine Traumatic brain injury, with out loss Ordered: 12/26/2018 of consciousness, initial en counter (HRC) documented as of this encounter Visit Diagnoses Diagnosis Bilateral occipital neuralgia - Primary Myalgia Mylagia and myositis, unspecified H/O cervical spinal arthrodesis Arthrodesis status Traumatic brain injury, without loss of consciousness, initial encounter (HRC) documented in this encounter Care Teams Agronomy Internship Relationship Specialty Start Date End Date Jose Holden MD PCP - General Otolaryngology 12/14/[address] [place] [address] documented as of this encounter
--- OUTSIDE RECORDS SUMMARY | 2022-09-14 11:54 | XMS_ITS | Encounter Summary ---
:1965 Author Organization [facility] Address [address] [place] [address] Care Team Providers Name Role Phone Jose Holden MD Primary Care Provider [phone] Reason for Referral Procedure/Equipment (Routine) - Closed Specialty Diagnoses / Procedures Referred By Contact Refer red To Contact Diagnoses Neck pain Pete Gonzalez MD [address] [place] [address] Referral ID Status Reason Start Date Expiration Date Visits Requ ested Visits Authorized [id number] Closed 06/14/2018 12/11/2018 1 1 Scheduling Instructions [...] Dx); Neuroscience Center Neck pain Neurosurgery/Ortho [address] [facility] Spine S [address] [place] [address] [place] [id number] Social History Tobacco Use Types Packs/Day Years [...] your understanding. Please call the Neurosurgery Center [phone] with any further questions or concerns or [...] Cervicalgia documented in this encounter Care Teams Electrotyper Helper Relationship Specialty Start Date End Date Jose Holden MD PCP - General Otolaryngology 12/14/17 [place] [address] documented as of this encounter
--- OUTSIDE RECORDS SUMMARY | 2022-09-14 11:54 | XMS_ITS | Encounter Summary ---
:1965 Author Organization [facility] Address [address], [place] [address] Care Team Providers Name Role Phone Jose Holden MD Primary Care Provider [phone] Reason for Visit Reason Comments Medication Check In Encounter Details Date Type Department Care Team Description 03/07/2018 Telephone [facility] Pete Gonzalez MD Medication Check In [facility] [place], [place] [address] [address] [place] [address] [phone] Social History Tobacco Use Types Packs/Day Years [...] Cruz - 03/07/2018 12:25 PM CDT Pharmacist Mnady calling from [facility]. She would like to inform provider [...] on filedocumented in this encounter Care Teams Almond Grinder Relationship Specialty Start Date End Date Jose Holden MD PCP - General Otolaryngology 12/14/17 [place] [address] documented as of this encounter
--- OUTSIDE RECORDS SUMMARY | 2022-09-14 11:54 | XMS_ITS | Encounter Summary ---
:1965 Author Organization [facility] Address [address], [place] [address] Care Team Providers Name Role Phone Jose Holden MD Primary Care Provider [phone] Reason for Visit Procedure/Equipment (Routine) - Incomplete Specialty Diagnoses / Procedures Referred By Contact Refer red To Contact Diagnoses Cervical spondylosis with radiculopathy (HRC) Sneha Maher, Sirisha Celaya, Procedures XR Cervical Spine AP/Lat Upright RAISER HELPER, TRANSPLANT CASE MANAGER [address] [place] [address] Referral ID Status Reason Start Date Expiration Date Visits V isits Requested Authorized [id number] Incomplete 02/21/2018 05/23/2019 1 1 Encounter Details Date Type Department Care Team Description 04/05/2018 Imaging [facility] Sneha Maher, Cervical spondylosis Neuroscience Center Sirisha Celaya, APR N, TRANSPLANT CASE MANAGER with radiculopathy Radiology [address] [place] [address] [phone] (Wo rk) Social History Tobacco Use Types [...] Anatomic alignment. Shoulder prosthesis. Sirisha Yomi Maher RAISER HELPER, TRANSPLANT CASE MANAGER RAD GD documented in this encounter Visit Diagnoses Diagnosis Cervical spondylosis with radiculopathy (HRC) Cervical spondylosis with myelopathy documented in this encounter Care Teams Evs Manager Relationship Specialty Start Date End Date Jose Holden MD PCP - General Otolaryngology 12/14/[address] [place], [place] [address] [address] documented as of this encounter
--- OUTSIDE RECORDS SUMMARY | 2022-09-14 11:54 | XMS_ITS | Encounter Summary ---
:1965 Author Organization [facility] Address [address], [place] [address] Care Team Providers Name Role Phone Jose Holden MD Primary Care Provider [phone] Encounter Details Date Type Department Care Team Description 11/10/2018 Orders Only External to Pete Tamayo MD [address] [place], [place] [address] (Wo rk) Social History Tobacco Use Types [...] 11/10/2018 12:00 AM R esults for this STUDIO MANAGER procedure are i n the results section. documented in this encounter Results CT SCAN SPINE--SCAN (11/10/2018 12:00 AM STUDIO MANAGER) Anatomical Region Laterality Modality Other Specimen (Source) Anatomical Location Collection Method / Collectio n Time Received Time / Laterality Volume 11/10/2018 Narrative This result has an attachment that is no t available. Pete Gonzalez MD DUMMY/OTHER/AR documented in this encounter Visit Diagnoses Not on filedocumented in this encounter Care Teams Research Associate Molecular Biology Relationship Specialty Start Date End Date Jose Holden MD PCP - General Otolaryngology 12/14/17 [address] [place] [address] documented as of this encounter
--- OUTSIDE RECORDS SUMMARY | 2022-09-14 11:54 | XMS_ITS | Encounter Summary ---
:1965 Author Organization [facility] Address [address] [address] Care Team Providers Name Role Phone Jose Holden MD Primary Care Provider [phone] Reason for Visit Reason Comments POST-OP,EXAM Encounter Details Date Type Department Care Team Description 03/07/2018 Office Visit [facility] Denis P ostop check (Primary Center Neurosurgery/Ortho Dx ) Spine [address] [place], [place] [id number] Social History Tobacco Use Types Packs/Day Years [...] in this encounter Patient Instructions Patient InstructionsGMandy ernae RN - 03/07/2018 11:00 AM CDT Neurosurgery/Spine [...] understanding. Please call the Neurosurgery/Spine Clinic at [phone] with any further questions or concerns. documented [...] surgery documented in this encounter Care Teams Heel Stainer Relationship Specialty Start Date End Date Jose Holedn MD PCP - General Otolaryngology 12/14/17 [facility] [address] [place] [address] documented as of this encounter
--- OUTSIDE RECORDS SUMMARY | 2022-09-14 11:54 | XMS_ITS | Encounter Summary ---
:1965 Author Organization [facility] Address [address] [place] [address] Care Team Providers Name Role Phone Jose Holden MD Primary Care Provider [phone] Encounter Details Date Type Department Care Team Description 06/29/2018 Consent for [facility] Procedure/Treat Neuroscience Center Tony Alvarado MD FOR TX/PROCEDURE ent Pain Management [address] [place] [phone] Social History Tobacco Use Types Packs/Day Years [...] on filedocumented in this encounter Care Teams Travel Ot Relationship Specialty Start Date End Date Jose Holden MD PCP - General Otolaryngology 12/14/[address] [place], [place] [address] documented as of this encounter
--- OUTSIDE RECORDS SUMMARY | 2022-09-14 11:54 | XMS_ITS | Encounter Summary ---
:1965 Author [facility] Address [address] [address] Care Team Providers Name Role Phone Jose Holden MD Primary Care Provider [phone] Reason for Visit Reason Comments Refill Encounter Details Date Type Department Care Team Description 03/07/2018 [facility] Pete Gonzalez MD Refill Center Neurosurgery/Ortho [address] [facility] Spine [place] [address] [address] [place] [address] [phone] Social History Tobacco Use Types Packs/Day Years [...] on filedocumented in this encounter Care Teams Rejoiner Relationship Specialty Start Date End Date Jose Holden MD PCP - General Otolaryngology 12/14/[address] [place] [address] documented as of this encounter
--- OUTSIDE RECORDS SUMMARY | 2022-09-14 11:54 | XMS_ITS | Encounter Summary ---
:1965 Author Organization [facility] Address [address] [address] Care Team Providers Name Role Phone Jose Holden MD Primary Care Provider [phone] Reason for Visit Procedure/Equipment (Routine) - Incomplete Specialty Diagnoses / Procedures Referred By Contact Refer red To Contact Diagnoses S/P cervical spinal fusion Sirisha Rankin, Procedures XR Cervical Spine AP/Lat Upright TORPEDO SHOOTER, GROUNDS CLEANER [address] [place] [address] Referral ID Status Reason Start Date Expiration Date Visits V isits Requested Authorized [id number] Incomplete 10/10/2018 01/09/2020 1 1 Encounter Details Date Type Department Care Team Description 12/26/2018 Ancillary [facility] Sneha Maher, S/P cervi france Procedure [facility] Sirisha Celaya, TORPEDO SHOOTER, spinal fusion Radiology GROUNDS CLEANER [address] [place] [address] [place], [place] [phone] [facility] Social History Tobacco Use Types Packs/Day Years [...] spin al Results for this AP/LAT UPRIGHT LEAD ANDROID DEVELOPER fusion procedure are in the results section. documented in this encounter Results XR Cervical Spine AP/Lat Upright (12/26/2018 1:44 PM LEAD ANDROID DEVELOPER) Anatomical Region Laterality Modality Spine, C-Spine, Neck Computed Radiograph y Specimen (Source) Anatomical Collection Method Collection Time Re ceived Time Location / / Volume Laterality 12/26/2018 1:44 PM LEAD ANDROID DEVELOPER Narrative 12/26/2018 3:41 PM LEAD ANDROID DEVELOPER EXAM: XR CERVICAL SPINE AP/LAT UPRIGHT LOCATION: [facility] DATE/TIME: 12/26/2018 1:44 PM INDICATION: [...] EXAM: XR CERVICAL SPINE AP/LAT UPRIGHT LOCATION: [facility] DATE/TIME: 12/26/2018 1:44 PM INDICATION: [...] C1-2 level on lateral view. Sirisha Maher TORPEDO SHOOTER, GROUNDS CLEANER RAD GD documented in this encounter Visit Diagnoses Diagnosis S/P cervical spinal fusion Arthrodesis status documented in this encounter Care Teams Tax Attorney Relationship Specialty Start Date End Date Jose Holden MD PCP - General Otolaryngology 12/14/17 [place] [address] documented as of this encounter
--- OUTSIDE RECORDS SUMMARY | 2022-09-14 11:54 | XMS_ITS | Encounter Summary ---
:1965 Author Organization [facility] Address [address] [place] [address] Care Team Providers Name Role Phone Jose Holden MD Primary Care Provider [phone] Encounter Details Date Type Department Care Team Description 06/20/2018 Consent for [facility] Procedure/Treat [facility] Tony Alvarado MD FOR TX/PROCEDURE ent Pain Management [address] [place] [phone] Social History Tobacco Use Types Packs/Day Years [...] on filedocumented in this encounter Care Teams Outboard Motor Assembler Relationship Specialty Start Date End Date Jose Holden MD PCP - General Otolaryngology 12/14/[address] [place], [place] [id number] documented as of this encounter
--- OUTSIDE RECORDS SUMMARY | 2022-09-14 11:54 | XMS_ITS | Encounter Summary ---
:1965 Author Organization [facility] Address [address] [place] [address] Care Team Providers Name Role Phone Jose Holden MD Primary Care Provider [phone] Encounter Details Date Type Department Care Team [...] HEAD 11/10/2018 12:00 AM Results for this [employer]IVE[employer] FARMERS procedure are i n the results section . documented in this encounter Results CT HEAD (11/10/2018 12:00 AM [employer]) Anatomical Region Laterality Modality Other Specimen (Source) Anatomical Location Collection Method / Collectio n Time Received Time / Laterality Volume 11/10/2018 Narrative This result has an attachment that is no t available. Phy No Primary/Referring DUMMY/OTHER/AR documented in this encounter Visit Diagnoses Not on filedocumented in this encounter Care Teams Shipfitter Relationship Specialty Start Date End Date Jose Holden MD PCP - General Otolaryngology 12/14/17 [place] [address] documented as of this encounter
--- OUTSIDE RECORDS SUMMARY | 2022-09-14 11:54 | XMS_ITS | Encounter Summary ---
:1965 Author [facility] Address [address] [place] [address] Care Team Providers Name Role Phone Jose Holden MD Primary Care Provider [phone] Reason for Visit Reason Comments UPDATE Pain Encounter Details Date Type Department Care Team Description 06/22/2018 [facility] Gume Pittman R, UPDATE; [facility] [address] [place] [address] [place] [address] [phone] (Wo rk) Social History Tobacco Use Types [...] Arenas RN - 06/26/2018 10:02 AM CDT Military Administrative Technician called patient, notified info below. Military Administrative Technician offered patient appt today however she cannot find a way to get to clinic today. Pt scheduled 06/29 which she accepted. Tony Pittman MD - 06/26/2018 9:53 AM CDT We can repeat trigger point injection if she would like. Ok to overbook for this afternoon. Lawrence Arenas RN - 06/23/2018 9:[address] Pittamn please advise: pt states her pain returned post TPI's from 3 days ago. Military Administrative Technician called patient, she states the day of [...] post total left knee replacement ??Barriers: 1. 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 Patient education: I went over the above diagnoses and treatment plan with her and answered all of her questions. 2. Imaging review: None 3. Exercise program: Regular exercise and activity 4. Medications: No changes. Do not recommend intermediate opioid use, continue to decrease use until [...] MD Pain Medicine Physical Medicine and Rehabilitation [facility] Pain Management. Obi Echeverria - 06/22/2018 [...] on filedocumented in this encounter Care Teams Entry Level Financial Analyst Relationship Specialty Start Date End Date Jose Holden MD PCP - General Otolaryngology 12/14/17 [place] [address] documented as of this encounter
--- OUTSIDE RECORDS SUMMARY | 2022-09-14 11:54 | XMS_ITS | Encounter Summary ---
:1965 Author Organization [facility] Address [address], [place] [address] Care Team Providers Name Role Phone Jose Holden MD Primary Care Provider [phone] Reason for Visit Reason Comments Injection Encounter Details Date Type Department Care Team Description 09/04/2018 Telephone [facility] Neuroscience Pete Gonzalez MD Injection Center Neurosurgery/Ortho [address] [facility] Spine [place], [place] [address] [address] [place] [address] [phone] Social History Tobacco Use Types Packs/Day Years [...] 09/05/2018 10:13 AM CDT Per Sirisha Maher, PHARMACY INNOVATION ASSISTANT: cannot write letter. Okay for repeat bilateral [...] Cervicalgia documented in this encounter Care Teams Harness Builder Relationship Specialty Start Date End Date Jose Holden MD PCP - General Otolaryngology 12/14/17 [place] [id number] documented as of this encounter
--- OUTSIDE RECORDS SUMMARY | 2022-09-14 11:54 | XMS_ITS | Encounter Summary ---
:1965 [facility] Address [address] [place] [address] Care Team Providers Name Role Phone Jose Holden MD Primary Care Provider [phone] Encounter Details Date Type Department Care Team [...] on filedocumented in this encounter Care Teams Facilities Engineering Manager Relationship Specialty Start Date End Date Jose Holden MD PCP - General Otolaryngology 12/14/17 [address] [place] [address] documented as of this encounter
--- OUTSIDE RECORDS SUMMARY | 2022-09-14 11:54 | XMS_ITS | Encounter Summary ---
:1965 Author [facility] Address [address], [place] [address] Care Team Providers Name Role Phone Jose Holden MD Primary Care Provider [phone] Reason for Referral Procedure/Equipment (Routine) - Incomplete Specialty Diagnoses / Procedures Referred By Contact Refer red To Contact Diagnoses S/P cervical spinal fusion Sirisha Rankin, Procedures XR Cervical Spine AP/Lat Upright KALPANA SHER [address] [place] [address] Referral ID Status Reason Start Date Expiration Date Visits V isits Requested Authorized [id number] Incomplete 04/05/2018 07/05/2019 1 1 Reason for Visit Reason Comments POST-OP,EXAM Encounter Details Date Type Department Care Team Description 04/05/2018 Office Visit [facility] Sneha Maher, S/Camelia cervic al spinal [facility] RODRICK Newberry CNP fusion (Primary Dx) Neurosurgery/Ortho [address] Spine [place], [place] [address] [address] [place] [address] [phone] Social History Tobacco Use Types Packs/Day Years [...] your understanding. Please call the Neurosurgery Center [phone] with any further questions or concerns or if your symptoms worsen. Thank you for coming to see us today. We are your partner. documented in this encounter Progress Notes Sirisha Rankin, ANIMAL CONTROL SUPERVISOR, AUTOMOBILE SALES REPRESENTATIVE - 04/05/2018 1:00 PM CDT POSTOPERATIVE DIAGNOSES: [...] a divorce and plans to move to [place] in the next several months. She would like to have an appointment with Dr. Gonzalez prior to [facility]. She denies any incisional concerns. She [...] elbow(tricep) R:5/5 L: 5/5 C8 - Finger flexors(television cameraman) R:5/5 L: 5/5 T1 - Finger abduction/adduction [...] 06/14/2018 5:54 PM CDT [facility] XR CERVICAL SPINE AP/LAT UPRIGHT 06/14/2018 [...] soft tissue swelling. Remainder unchanged. Sirisha Maher ANIMAL CONTROL SUPERVISOR, AUTOMOBILE SALES REPRESENTATIVE RAD GD documented in this encounter Visit Diagnoses Diagnosis S/P cervical spinal fusion - Primary Arthrodesis status S/P cervical spinal fusion Arthrodesis status documented in this encounter Care Teams Gore Seamer Relationship Specialty Start Date End Date Jose Holden MD PCP - General Otolaryngology 12/14/17 [place] [address] documented as of this encounter
--- OUTSIDE RECORDS SUMMARY | 2022-09-14 11:54 | XMS_ITS | Encounter Summary ---
:1965 Author Organization [facility] Address [address], [place] [address] Care Team Providers Name Role Phone Jose Holden MD Primary Care Provider Reason for Visit Reason Comments Revisit Bilateral cervical/thoracic trigger point injections Encounter Details Date Type Department Care Team Description 08/14/2018 Office Visit [facility] occipital neuralgia (Primary Dx); [facility] Pain RMD Myalgia; Management [address] H/O cervical spinal arthrodesis [address] [place] [phone] Social History Tobacco Use Types Packs/Day Years [...] - 08/14/2018 3:00 PM CDT [facility] Follow-up Visit 08/14/2018 Interim [...] Oxycodone 5 mg Q6H - Prescribes by [facility], has been taking for many [...] at a pain clinic in the past. [facility] physical therapy: Past Acupuncture: None [...] anterior cervical fusion 2017 Dr. Ihsan Brooke, [facility] past surgical [...] ??? medical cannabis patient certified Take 1 [place] by mouth . ??? naloxone (NARCAN) 4 [...] facility-administered medications prior to visit. [place] and [place] Prescription Monitoring Program reviewed Allergies: Allergies Allergen [...] in her mother. Social history:she lives in [place], [place].she is not currently working. Smokin/2 ppd. [...] MD Pain Medicine [facility] This document serves as a record of services personally performed by Tony Pittman MD. It was created on his behalf by Gillian Harding, a trained medical resident. The creation of this record is based [...] status documented in this encounter Care Teams Outreach Clinician Relationship Specialty Start Date End Date Jose Holden MD PCP - General Otolaryngology 12/14/17 [facility] [address] documented as of this encounter
--- OUTSIDE RECORDS SUMMARY | 2022-09-14 11:54 | XMS_ITS | Encounter Summary ---
:1965 Author Organization [facility] Address [address] [address] Care Team Providers Name Role Phone Jose Holden MD Primary Care Provider [phone] Encounter Details Date Type Department Care Team Description 11/10/2018 Emergency Room External to External, Provid er FALL/HEADACHE NECK LT No address [place] [address] Social History Tobacco Use Types Packs/Day Years [...] on filedocumented in this encounter Care Teams Backer Up Relationship Specialty Start Date End Date Jose Holden MD PCP - General Otolaryngology 12/14/17 [place] [address] documented as of this encounter
--- OUTSIDE RECORDS SUMMARY | 2022-09-14 11:54 | XMS_ITS | Encounter Summary ---
:1965 Author [facility] Address [address] [place] [address] Care Team Providers Name Role Phone Jose Holden MD Primary Care Provider [phone] Encounter Details Date Type Department Care Team [...] on filedocumented in this encounter Care Teams Collet Making Machine Operator Relationship Specialty Start Date End Date Jose Holden MD PCP - General Otolaryngology 12/14/17 [place] [address] documented as of this encounter
--- OUTSIDE RECORDS SUMMARY | 2022-09-14 11:54 | XMS_ITS | Encounter Summary ---
:1965 Author Organization [facility] Address [address] [place] [address] Care Team Providers Name Role Phone Jose Holden MD Primary Care Provider [phone] Encounter Details Date Type Department Care Team Description 12/26/2018 Consent for [facility] Pittman, CONSENT FOR Procedure/[facility] Tony Alvarado MD PROCEDURE ent Pain Management [address] [place] [phone] Social History Tobacco Use Types Packs/Day Years [...] filedocumented in this encounter Care Teams General Manager Road Production Relationship Specialty Start Date End Date Jose Holden MD PCP - General Otolaryngology 12/14/[address] [place] [address] documented as of this encounter
--- OUTSIDE RECORDS SUMMARY | 2022-09-14 11:54 | XMS_ITS | Encounter Summary ---
:1965 Author [facility] Address [address] [place] [address] Care Team Providers Name Role Phone Jose Holden MD Primary Care Provider [phone] Reason for Visit Procedure/Equipment (Routine) - Incomplete Specialty Diagnoses / Procedures Referred By Contact Refer red To Contact Diagnoses S/P cervical spinal fusion Sirisha Rankin, Procedures XR Cervical Spine AP/Lat Upright QUANTITATIVE CONSULTANT, SANDWICH MACHINE OPERATOR [address] [place] [address] Referral ID Status Reason Start Date Expiration Date Visits V isits Requested Authorized [id number] Incomplete 04/05/2018 07/05/2019 1 1 Encounter Details Date Type Department Care Team Description 06/14/2018 Imaging [facility] Sneha Maher, S/P cervi [facility] spinal [facility] Sirisha Celaya, APR N, SANDWICH MACHINE OPERATOR fusion Radiology [address] [place] [address] [place] [address] [phone] Social History Tobacco Use Types Packs/Day Years [...] PM CDT Narrative 06/14/2018 5:54 PM CDT [facility] XR CERVICAL SPINE AP/LAT UPRIGHT [...] note might be different from the original. [facility] XR CERVICAL SPINE AP/LAT UPRIGHT [...] soft tissue swelling. Remainder unchanged. Sirisha Maher QUANTITATIVE CONSULTANT, SANDWICH MACHINE OPERATOR RAD GD documented in this encounter Visit Diagnoses Diagnosis S/P cervical spinal fusion Arthrodesis status documented in this encounter Care Teams Director Of Investigations Relationship Specialty Start Date End Date Jose Holden MD PCP - General Otolaryngology 12/14/17 [place] [address] documented as of this encounter
--- OUTSIDE RECORDS SUMMARY | 2022-09-14 11:54 | XMS_ITS | Encounter Summary ---
:1965 Author Organization [facility] Address [address] [address] Care Team Providers Name Role Phone Jose Holden MD Primary Care Provider [phone] Reason for Visit Reason Comments Revisit occipital nerve block Encounter Details Date Type Department Care Team Description 07/10/2018 Office Visit [facility] occipital neuralgia (Primary Dx); [facility] Pain RMD Myalgia; Management [address] H/O cervical spinal arthrodesis [address] [place] [address] [phone] Social History Tobacco Use Types Packs/Day Years [...] treatment plan is, please contact me via DEQ online messaging or call the office at and ask to speak to a nurse. Tony Pittman MD Pain Medicine documented in this encounter Progress Notes Tony Pittman MD - 07/10/2018 3:45 PM CDT [facility] Follow-up Visit 07/10/2018 Interim history: [...] Oxycodone 5 mg Q6H - Prescribes by [facility], has been taking for many [...] at a pain clinic in the past. [facility] physical therapy: Past Acupuncture: None [...] anterior cervical fusion 2017 Dr. Ihsan Brooke, [facility] past surgical history reviewed with patient. [...] ??? medical cannabis patient certified Take 1 [place] by mouth . ??? naloxone (NARCAN) 4 [...] 0 No facility-administered medications prior to visit. [place] and [place] Prescription Monitoring Program reviewed Allergies: Allergies Allergen [...] in her mother. Social history:she lives in [place], [place].she is not currently working. Smokin/2 ppd. [...] of occipital nerve block today Barriers: 1. superintendent terminal opioid use Plan: [...] and Rehabilitation [facility] Pain Management This document serves as a record of services personally performed by Tony Pittman MD. It was created on his behalf by Gillian Harding, a trained medical attendant. The creation of this record is based [...] status documented in this encounter Care Teams Twist Tester Relationship Specialty Start Date End Date Jose Holden MD PCP - General Otolaryngology 12/14/[address] [place], [place] [address] [address] documented as of this encounter
--- OUTSIDE RECORDS SUMMARY | 2022-09-14 11:54 | XMS_ITS | Encounter Summary ---
:1965 Author Organization [facility] Address [address] [place] [address] Care Team Providers Name Role Phone Jose Holden MD Primary Care Provider [phone] Reason for Visit Reason Comments Revisit trigger point injections Encounter Details Date Type Department Care Team Description 06/29/2018 Office Visit [facility] Myalgia (Primary Dx); [facility] Raul Alvarado MD Medical marijuana use; Management [address] H/O cervical spinal arthrodesis; [address] [place], [place] [address] [phone] Social History Tobacco Use Types Packs/Day Years [...] treatment plan is, please contact me via [employer] online messaging or call the office at and ask to speak to a nurse. Tony Pittman MD Pain Medicine documented in this encounter Progress Notes Tony Pittman MD - 06/29/2018 10:20 AM CDT [facility] Follow-up Visit 06/29/2018 Interim history: [...] Oxycodone 5 mg Q6H - Prescribes by [facility], has been taking [...] at a pain clinic in the past. [facility] physical therapy: Past [...] ??? medical cannabis patient certified Take 1 [place] by mouth . ??? naloxone (NARCAN) 4 [...] Gain No facility-administered medications prior to visit. [place] and [place] Prescription Monitoring Program reviewed Allergies: [...] in her mother. Social history:she lives in [place], [place].she is not currently working. Smokin/2 ppd. [...] MD Pain Medicine Physical Medicine and Rehabilitation [facility] Pain Management This document serves as a record of services personally performed by Tony Pittman MD. It was created on his behalf by Gillian Harding, a trained center medical specialist. The creation of this record is [...] disorder documented in this encounter Care Teams Channeler Outsole Relationship Specialty Start Date End Date Jose Hodlen MD PCP - General Otolaryngology 12/14/[address] [place] [address] documented as of this encounter
--- OUTSIDE RECORDS SUMMARY | 2022-09-14 11:55 | XMS_ITS | Encounter Summary ---
:1965 Author Organization [facility] Address [address] [address] Care Team Providers Name Role Phone Jose Holden MD Primary Care Provider [phone] Encounter Details Date Type Department Care Team [...] on filedocumented in this encounter Care Teams Volunteer Firefighter Relationship Specialty Start Date End Date Jose Holden MD PCP - General Otolaryngology 12/14/17 [place] [address] documented as of this encounter
--- OUTSIDE RECORDS SUMMARY | 2022-09-14 11:55 | XMS_ITS | Encounter Summary ---
:1965 Author [facility] Address [address] [place] [address] Care Team Providers Name Role Phone Jose Holden MD Primary Care Provider [phone] Encounter Details Date Type Department Care Team Description 02/13/2018 Orders Only External to [facility] External, [place] [address] Social History Tobacco Use Types Packs/Day Years [...] on filedocumented in this encounter Care Teams Laboratory Apparatus Glass Blower Relationship Specialty Start Date End Date Jose Holden MD PCP - General Otolaryngology 12/14/17 [place] [address] documented as of this encounter
--- OUTSIDE RECORDS SUMMARY | 2022-09-14 11:55 | XMS_ITS | Encounter Summary ---
:1965 Author [facility] Address [address] [address] Care Team Providers Name Role Phone Jose Holden MD Primary Care Provider [phone] Reason for Visit Auth/Cert Specialty Diagnoses / [...] Expiration Date Visits Requ ested Visits Authorized [id number] 1 1 Encounter Details Date Type Department Care Team Description 02/20/2018 Imaging [facility] Pete Gonzalez MD [address] [place] [address] [place] [address] [phone] (Wo rk) Social History Tobacco Use Types [...] PM CDT Fluoroscopy provided by a cardiac cath lab radiology technologist. Exact fluoroscopy time is documented in end of exam information in EPIC Pete Gonzalez MD RAD GD documented in this encounter Visit Diagnoses Not on filedocumented in this encounter Care Teams Steel Molder Relationship Specialty Start Date End Date Jose Holden MD PCP - General Otolaryngology 12/14/[address] [place], [place] [address] [address] documented as of this encounter
--- OUTSIDE RECORDS SUMMARY | 2022-09-14 11:55 | XMS_ITS | Encounter Summary ---
:1965 Author Organization [facility] Address [address], [place] [address] Care Team Providers Name Role Phone Jose Holden MD Primary Care Provider [phone] Reason for Visit Reason Comments QUESTIONS, GENERAL Encounter Details Date Type Department Care Team Description 03/01/2018 Telephone [facility] Pete Gonzalez MD QUESTIONS, GENERAL [facility] [address] [facility] Neurosurgery/Ortho [address] [place], [place] [address] [address] [place] [address] [phone] Social History Tobacco Use Types Packs/Day Years [...] she should go to the ED in [place]? Please review and advise. Chantel Angela 03/01/2018, 11:15 AM documented in this encounter Plan of Treatment Not on filedocumented as of this encounter Visit Diagnoses Not on filedocumented in this encounter Care Teams Shim Plug Cutter Relationship Specialty Start Date End Date Jose Holden MD PCP - General Otolaryngology 12/14/17 [facility] [place] [place] [address] documented as of this encounter
--- OUTSIDE RECORDS SUMMARY | 2022-09-14 11:55 | XMS_ITS | Encounter Summary ---
:1965 Author Organization [facility] Address [address], [place] [address] Care Team Providers Name Role Phone Jose Holden MD Primary Care Provider [phone] Reason for Visit Reason Comments QUESTIONS, GENERAL Encounter Details Date Type Department Care Team Description 02/24/2018 Telephone [facility] Pete Gonzalez MD QUESTIONS, GENERAL [facility] [address] [facility] Neurosurgery/Ortho [address] [place], [place] [address] [address] [place] [address] [phone] Social History Tobacco Use Types Packs/Day Years [...] currently doing PT which was ordered through [facility] for her shoulder. She is worried [...] on filedocumented in this encounter Care Teams Audio Specialist Relationship Specialty Start Date End Date Jose Holden MD PCP - General Otolaryngology 12/14/17 [facility] [place] [address] [place] [address] documented as of this encounter
--- OUTSIDE RECORDS SUMMARY | 2022-09-14 11:55 | XMS_ITS | Encounter Summary ---
:1965 Author Organization [facility] Address [address] [address] Care Team Providers Name Role Phone Jose Holden MD Primary Care Provider [phone] Reason for Visit Auth/Cert Specialty Diagnoses / [...] Expiration Date Visits Requ ested Visits Authorized [id number] 1 1 Encounter Details Date Type Department Care Team Description 02/20/2018 Surgery RH Operating Room Marky Gonzalez MD FUSION POSTERIOR [address] [place] [address] [place] C2-T3, REMOVAL HARDWARE [phone] SPINE Anterior plate [id number] (Wo rk) and Posterior screws and rods [...] encounter Discharge Summaries Sneha Maher, Sirisha Celaya, FOUNDATION DRILL OPERATOR HELPER, DELIVERY DEPARTMENT SUPERVISOR - 02/23/2018 9:09 AM CDT Neurosurgery [...] Hospital Course: Angie Bender was admitted to [facility] on 02/20/2018 following posterior C2-T3 with Dr. [...] 9.4 - 12.4 fl Narrative Performed at [facility], [address] [place] [address] Physical Exam: BP 124/78 Pulse 74 Temp [...] T1. 3. Intraoperative placement and removal of Taylor-SocialPandas tongs. 4. Hardware removal, C6-T1 posterior. 5. [...] in strength to your extremeties. Neurosurgery clinic [phone]. If it is after hours, please call [...] neurosurgery RN on 03/07 at 11AM at [address] [place] [address], 2nd floor. 2. Follow up with Dr. Gonzalez/Lois Pham PA-C/Sirisha Maher NP on 04/05 at 1:00PM at [address] [place] [address]. Patient also instructed to call clinic at [phone] or [facility] for any questions or concerns. Patient verbalizes understanding and states no further questions at this time. 3. Follow up with PCP for any medical issues Total time spent at the time of discharge was 30 minutes Sirisha Maher APRN, [place]ALPANA Pgr#[phone] documented in this encounter Discharge Instructions Discharge InstructionsDonna Ellis RN - 02/23/2018 10:42 AM CDT Hospital [place] [address] General Information Discharging physician: Dr. Gonzalez [facility] Emergency & Urgently Needed Care: For emergencies call 911 and/or get medical help right away. If you are a [facility] member and have medical needs after clinic hours you may call the [facility] [phone] or . Fall Prevention Recommendations ??? Follow [...] Ellis RN - 02/23/2018 11:50 AM CDT [facility] H[facility]PITAL Discharge Note - Nursing Admission [...] End of Report --- Sirisha Rankin APRN, DELIVERY DEPARTMENT SUPERVISOR - 02/23/2018 9:02 AM CDT Neurosurgery [...] Dc home today ?? Sirisha Maher APRN, DELIVERY DEPARTMENT SUPERVISOR 02/23/2018, 9:02 AM Neurosurgery Pgr#[phone] Jolene Kaur PA-C - 02/22/2018 12:45 PM [...] Lois Pham PA-C, 02/22/2018, 9:05 AM Neurosurgery [phone] He Reyes MD - 02/22/2018 8:29 AM [...] with any questionsor concerns. He Reyes M.D. [facility] Pain Management [phone] INTERVAL HISTORY: She started tizanidine last night [...] patch 2 Patch 2 Patch Transdermal Daily Losi Pham PA-C ??? loratadine (CLARITIN) tablet 5 [...] 02/22/18 0743 Current Outpatient Prescriptions Ordered in [facility] Medication Sig Dispense Refill ??? [...] TIME SPENT: 35 minutes including 50% time wgma-bo-pabn time counseling her about her diagnosis and treatment options, and coordinating care with the primary team. DECISION-MAKING: The level of decision-making in this case is high/complex due to the complexity of medical problems, acute/chronic pain, opioid analgesia issues, and behavioral factors. He Reyes M.D. Brooklyn Whittington - 02/21/2018 1:47 PM CDT [facility] Care Management Screening Admission Info: [...] and PCP information. Brooklyn Whittington RN CM [phone] Lois Pham PA-C - 02/21/2018 9:23 AM CDT Neurosurgery Progress Note Date of service: 02/21/2018 Subjective: Feels sore. Upset she did not have FOUNTAIN BRUSH ASSEMBLER overnight. Wants to go smoke. Wants to [...] there were a couple of options including FOUNTAIN BRUSH ASSEMBLER vs IV pain medications for post op pain control, and rationale for non FOUNTAIN BRUSH ASSEMBLER at this time. Did discuss that would not recommend DC as drain still has high output. Upright xrays prior to DC Up with assistance Continue hemovac until <30/shift Soft collar when OOB, PRN in bed for comfort PT/OT Dispo: Anticipate home in next 1-2 days pending drain output Lois Pham PA-C, 02/21/2018, 9:23 AM Neurosurgery [phone] He Reyes MD - 02/20/2018 1:[address] PM [address] Note from Dr. Covarrubias on 02/13/18: ? 1. On the day of surgery please order an Inpatient pain consult 2. Ketamine 5mg/h during surgery ?? Recommendations for opioids: ?? If using a FOUNTAIN BRUSH ASSEMBLER: No oral opioids Start a FOUNTAIN BRUSH ASSEMBLER pump with Dilaudid continuous IV infusion at a basal rate of 0.1 mg/hr with FOUNTAIN BRUSH ASSEMBLER boluses of 0.2-0.4 mg every 10 minutes. ?? If not using a FOUNTAIN BRUSH ASSEMBLER: Start dilaudid 2-4mg q3h prn (alternatively can [...] Pham PA-C - 02/20/2018 3:24 PM CDT [facility] Brief Operative Progress Note Surgery Date: 02/20/2018 Surgeon(s) and Role: * Marky Gonzalez MD - Primary PHYSICIAN TRANSCRIPT EVALUATOR-Meka Pham Pre-op Diagnosis: * Cervical spondylosis with [...] The procedure was medically necessary for an special education educational assistant because Dr. Gonzalez needed the operative [...] Lois Pham PA-C, 02/20/2018, 3:25 PM Neurosurgery [phone] Marky Gonzalez MD - 02/20/2018 12:00 AM CDT ANGIE BENDER [facility]: [phone] OPERATIVE REPORT DATE OF SURGERY: 02/20/2018 : 1965 SURGEON: MARKY GONZALEZ MD TRANSCRIPT EVALUATOR: Lois Pham PA-C. PREOPERATIVE DIAGNOSES: 1. Status [...] stepwise fashion using absorbable suture. We placed Taylor-SocialPandas tongs and then flipped the patient prone [...] all critical portions. MARKY GONZALEZ MD MMK/MODL /[id number] cc: MARKY GONZALEZ MD documented in this [...] risk. She has been on these termite control servicer, desires to eventually come off. She also [...] with any questionsor concerns. He Reyes M.D. [facility] Pain Management [phone] HISTORY OF PRESENT ILLNESS: Per Chart Review: [...] headache Opioid prescriber: LEDY Ojeda MD-valium [facility] database review: Risk Factors: History [...] CURRENT MEDICATIONS: Current Facility-Administered Medications Ordered in [facility] Medication Dose Route Frequency Provider Last [...] Lois Pham PA-C ??? glucose-ascorbic acid (aka [id number]) chewable tablet 4 Tab 4 Tab Oral [...] TIME SPENT: 70 minutes including 50% time ldcs-nx-ssin time counseling her about her diagnosis and treatment options, and coordinating care with the primary team. DECISION-MAKING: The level of decision-making in this case is high/complex due to the complexity of medical problems, acute/chronic pain, opioid analgesia issues, and behavioral factors. documented in this encounter Miscellaneous Notes OR Nursing - Monica Pate, RN - 02/20/2018 2:49 PM CDT [facility] Progress Note Patient Name: Angie [...] failure. Anatomic alignment. Shoulder prosthesis. Sirisha Maher FOUNDATION DRILL OPERATOR HELPER, DELIVERY DEPARTMENT SUPERVISOR RAD GD (ABNORMAL) Complete Blood Count-No Diff (02/22/2018 12:36 PM CDT) athologist Signature WBC 10.2 4.0 - 11.0 [facility] RBC 3.36 (L) 4.0 - 5.2 [facility] Hemoglobin 11.1 (L) 12.0 - 16.0 [facility] g/dl [facility] HCT 33.2 (L) 36.0 - 46.0 [facility] MCV 98.8 80 - 100 fl [facility] MCH 33.0 26 - 34 pg [facility] MCHC 33.4 32 - 36 [facility] g/dl [facility] RDW 14.4 11.5 - 14.5 [facility] Platelets 183 150 - 450 [facility] MPV 10.6 9.4 - 12.4 [facility] Specimen Anatomical Collection Method Collection Time Receive d Time (Source) Location / / Volume Laterality 02/22/2018 12:36 02/22/2018 PM CDT 12:37 PM CDT Narrative [facility] - 02/22/2018 12:46 PM C DT Performed at [facility] , [address] [place] [address] Lois Pham PA-C LAB_1 Performing Organization Address City/State/ZIP Code Phon e Number [facility] [address] [place] [address] [address], [facility] [phone] XR Cervical Spine AP/Lat Upright (02/21/2018 9:50 [...] Gonzalez MD LAB_1 Performing Organization Address City/[facility] Phon e Number [address] [address] [place] [address], [facility] [phone] (ABNORMAL) Basic Metabolic Panel (02/21/2018 7:12 AM [...] Est., If >60 >60 [facility] Black ml/min/1.7 [facility] 3m2 Specimen Anatomical Collection Method Collection Time Receive d Time (Source) Location / / Volume Laterality 02/21/2018 7:12 AM 8 7:13 CDT AM CDT Narrative [facility] - 02/21/2018 7:47 AM CD T Performed at [facility] , [address] [place] [address] Lois Pham PA-C LAB_1 Performing Organization Address [facility]/ZIP [facility] Phon e Number [address] [address] [place] [address], [facility] [phone] (ABNORMAL) Hemogram with Plts (02/21/2018 7:12 AM CDT) athologist Signature WBC 10.0 4.0 - 11.0 [facility] RBC 3.29 (L) 4.0 - 5.2 [facility] Hemoglobin 10.7 (L) 12.0 - 16.0 [facility] g/dl HOSPITAL HCT 32.2 (L) 36.0 - 46.0 [facility] MCV 97.9 80 - 100 fl [facility] MCH 32.5 26 - 34 pg [facility] MCHC 33.2 32 - 36 [facility] g/dl HOSPITAL RDW 13.9 11.5 - 14.5 [facility] Platelets 186 150 - 450 [facility] MPV 10.3 9.4 - 12.4 [facility] Specimen Anatomical Collection Method Collection Time Receive d Time (Source) Location / / Volume Laterality 02/21/2018 7:12 AM 8 7:13 CDT AM CDT Narrative [facility] - 02/21/2018 7:26 AM CD T Performed at [facility] , [address] [place] [address] Lois Pham PA-C LAB_1 Performing Organization Address City/[facility] Phon e Number [address] [address], [facility] [phone] Glucose, Whole Blood POC (02/20/2018 11:20 PM CDT) athologist Signature Glucose, Whole 140 70 - 180 [facility] Blood mg/dl [facility] Comment: Point of Care Testing No Action Required Specimen Anatomical Collection Method Collection Time Receive d Time (Source) Location / / Volume Laterality 02/20/2018 11:20 02/20/2018 PM CDT 11:26 PM CDT Marky Gonzalez MD LAB_1 Performing Organization Address City/[facility] Phon e Number [address] [address], [facility] [phone] Glucose, Whole Blood POC (02/20/2018 5:05 PM CDT) athologist Signature Glucose, Whole 145 70 - 180 [facility] Blood mg/dl [facility] Comment: Point of Care Testing No Action Required Specimen Anatomical Collection Method Collection Time Receive d Time (Source) Location / / Volume Laterality 02/20/2018 5:05 PM 8 5:25 CDT PM CDT Marky Gonzalez MD LAB_1 Performing Organization Address City/State/ZIP Code Phon e Number [address] [address], [facility] [phone] Glucose, Whole Blood POC (02/20/2018 3:45 PM CDT) athologist Signature Glucose, Whole 145 70 - 180 [facility] Blood mg/dl HOSPITAL Comment: Point of Care Testing No Action Required Specimen Anatomical Collection Method Collection Time Receive d Time (Source) Location / / Volume Laterality 02/20/2018 3:45 PM 8 3:52 CDT PM CDT Marky Gonzalez MD LAB_1 Performing Organization Address City/[facility]/ZIP Code Phon e Number [address] [address], [facility] XR C-Arm 0-30 Minutes (02/20/2018 2:05 PM CDT) Anatomical Region Laterality Modality Other Specimen (Source) Anatomical Location Collection Method / Collectio n Time Received Time / Laterality Volume Narrative 02/20/2018 2:06 PM CDT Fluoroscopy provided by a resident physician in radiology. Exact fluoroscopy time is documented in end of exam information in EPIC Marky Gonzalze MD RAD GD XR C-Arm 2.5-3 Hours (02/20/2018 12:45 PM CDT) Anatomical Region Laterality Modality Other Specimen (Source) Anatomical Location Collection Method / Collectio n Time Received Time / Laterality Volume Narrative 02/20/2018 12:45 PM CDT Fluoroscopy provided by a resident physician in radiology. Exact fluoroscopy time is documented in end of exam information in EPIC Marky Gonzalez MD RAD GD XR C-Arm 30-59 Minutes (02/20/2018 12:36 PM CDT) Anatomical Region Laterality Modality Other Specimen (Source) Anatomical Location Collection Method / Collectio n Time Received Time / Laterality Volume Narrative 02/20/2018 12:36 PM CDT Fluoroscopy provided by a resident physician in radiology. Exact fluoroscopy time is documented in end of exam information in EPIC Marky Gonzalez MD RAD GD Glucose, Whole Blood POC (02/20/2018 9:02 AM CDT) athologist Signature Glucose, Whole 135 70 - 180 [facility] Blood mg/dl [facility] Comment: Point of Care Testing RN Notified Specimen Anatomical Collection Method Collection Time Receive d Time (Source) Location / / Volume Laterality 02/20/2018 9:02 AM 8 9:08 CDT AM CDT Marky Gonzalez MD LAB_1 Performing Organization Address City/[facility]/ZIP Code Phon e Number [address] [address] [place] [address], [facility] [phone] Glucose, Whole Blood POC (02/20/2018 6:25 AM CDT) athologist Signature Glucose, Whole 90 70 - 180 [facility] Blood mg/dl [facility] Specimen Anatomical Collection Method Collection Time Receive d Time (Source) Location / / Volume Laterality 02/20/2018 6:25 AM 8 6:34 CDT AM CDT Marky Gonzalez MD LAB_1 Performing Organization Address City/[facility]/ZIP Code Phon e Number [address] [address], [facility] ABO/RH(D) Retype (02/20/2018 6:22 AM CDT) athologist Signature ABO/RH(D) A NEGATIVE [facility] Specimen Anatomical Collection Method Collection Time Receive d Time (Source) Location / / Volume Laterality 02/20/2018 6:22 AM 8 6:25 CDT AM CDT Narrative [facility] - 02/20/2018 7:06 AM CD T Performed at [facility] , [address] [place] [address] Marky Gonzalez MD LAB_1 Performing Organization Address City/[facility]/ZIP Code Phon e Number [address] [address], [facility] INR/Protime (PT/INR) (02/20/2018 6:08 AM CDT) P athologist Signature Protime 13.0 12.0 - 14.5 [facility] INR 1.0 0.9 - 1.1 [facility] Specimen Anatomical Collection Method Collection Time Receive d Time (Source) Location / / Volume Laterality 02/20/2018 6:08 AM 8 6:22 CDT AM CDT Narrative [facility] - 02/20/2018 6:40 AM CD T Performed at [facility] , [address] [place] [address] Sirisha Maher APRN, CNP LAB_1 Performing Organization Address City/[facility] Phon e Number [address] [address] [place] [address], [facility] Hemogram with Platelets (02/20/2018 6:08 AM CDT) P athologist Signature WBC 6.7 4.0 - 11.0 [facility] RBC 4.13 4.0 - 5.2 [facility] Hemoglobin 13.5 12.0 - 16.0 [facility] gdl [facility] HCT 39.8 36.0 - 46.0 [facility] MCV 96.4 80 - 100 [facility] MCH 32.7 26 - 34 pg [facility] MCHC 33.9 32 - 36 [facility] RDW 13.8 11.5 - 14.5 [facility] Platelets 245 150 - 450 [facility] MPV 10.6 9.4 - 12.4 [facility] Specimen Anatomical Collection Method Collection Time Receive d Time (Source) Location / / Volume Laterality 02/20/2018 6:08 AM 8 6:22 CDT AM CDT Narrative [facility] - 02/20/2018 6:32 AM CD T Performed at [facility] , [address] [place] [address] Sirisha Maher APRN, DELIVERY DEPARTMENT SUPERVISOR LAB_1 Performing Organization Address City/[facility]/ZIP [facility] Phon e Number [address] [address], [facility] (ABNORMAL) Basic Metabolic Panel (02/20/2018 6:08 AM CDT) athologist Signature Sodium 139 136 - 145 [facility] mmol/L [facility] Potassium 4.4 3.5 - 5.1 [facility] mmol/L HOSPITAL Comment: Specimen Slightly Hemolyzed Hemolysis May Affect Result Chloride 109 98 - 109 mmol/L [facility] AL CO2 18 (L) 20 - 29 mmol/L [facility] L Anion Gap (calc.) 12 7 - 16 mmol/L [facility] Glucose 96 70 - 180 mg/dl [facility] L Calcium 9.4 8.4 - 10.2 mg/dl [facility] BUN 14 7 - 26 mg/dl [facility] Creatinine 0.69 0.55 - 1.02 mg/dl [facility] GFR, Estimated >60 >60 ml/min/1.73m2 [facility] GFR, Est., If Black >60 >60 ml/min/1.73m2 [facility] Specimen Anatomical Collection Method Collection Time Receive d Time (Source) Location / / Volume Laterality 02/20/2018 6:08 AM 8 6:22 CDT AM CDT [facility] - 02/20/2018 6:52 AM CD T Performed at [facility] , [address] [place] [address] Sirisha Maher APRN, DELIVERY DEPARTMENT SUPERVISOR LAB_1 Performing Organization Address City/State/ZIP Code Phon e Number [address] [address], [facility] [phone] aPTT (Activated Partial Thromboplastin Time) (02/20/2018 6:08 AM CDT) athologist Signature PTT 26.8 24.0 - 37.0 [facility] sec [facility] Specimen Anatomical Collection Method Collection Time Receive d Time (Source) Location / / Volume Laterality 02/20/2018 6:08 AM 8 6:22 CDT AM CDT [facility] - 02/20/2018 6:40 AM CD T Performed at [facility] , [address] [place] [address] Sirisha Maher APRN, DELIVERY DEPARTMENT SUPERVISOR LAB_1 Performing Organization Address City/[facility]/ZIP Code Phon e Number [address] [address], [facility] ABO Rh & Antibody Screen (Type & Screen) (02/20/2018 6:07 AM CDT) [facility] gist Method Time Signature Crossmatch 02/23/2018 [facility] ABO/RH(D) A NEGATIVE [facility] Antibody Screen NEGATIVE [facility] Specimen Anatomical Collection Method Collection Time Receive d Time (Source) Location / / Volume Laterality 02/20/2018 6:07 AM 8 6:22 CDT AM CDT Narrative [facility] - 02/20/2018 7:10 AM CD T Performed at [facility] , [address] [place] [address] Sirisha Maher APRN, KALPANA LAB_1 Performing Organization Address City/[facility] Phon e Number [address] [address], [facility] [phone] EKG IP (02/20/2018 12:00 AM CDT) Specimen (Source) Anatomical Location Collection Method / Collectio n Time Received Time / Laterality Volume 02/20/2018 Narrative This result has an attachment that is no t available. Provider [facility] EKG documented in this encounter Visit [...] s pine ([facility]) Cervical spondylosis with radiculopathy ([facility]) Cervical spondylosis with myelopathy Plan of Care - Marlen Segura RN - 02/23/2018 9:57 AM CDT [facility] Plan of Care Note Assessment: [...] Carbajal RN - 02/23/2018 7:43 AM CDT [facility] Plan of Care Note Assessment: [...] Rico RN - 02/22/2018 10:15 PM CDT [facility] Plan of Care Note Assessment: [...] Rico RN - 02/22/2018 4:00 PM CDT [facility]. MD Notified Note Name of MD notified: Ankit Time of MD notification: 1600 hours and 1 minute Reason: Pt.asking for valium now and current order for HS prn. plz review. [id number]. Response: Valium one time dose now and HS prn. Shawn Butcher RN --- End of Report --- Plan of Care - Alec Gifford RN - 02/22/2018 1:57 PM CDT [facility] Plan of Care Note Assessment: [...] Lundberg RN - 02/22/2018 2:32 AM CDT [facility] Plan of Care Note Assessment: [...] Orellana RN - 02/22/2018 12:33 AM CDT [facility] Plan of Care Note Assessment: [...] Gifford RN - 02/21/2018 1:41 PM CDT [facility] Plan of Care Note Assessment: [...] Lundberg RN - 02/21/2018 4:56 AM CDT [facility]. MD Notified Note Name of MD notified: Neurosurg Time of MD notification: 0400 hours and 55 minutes Reason: [id number]- Pt reporting oral/IV pain meds ineffective. Pt upset, req further intervention. Please advise. Thanks. Response: Discussed w/ neurosurg. To be addressed in AM and PRNs to continue to be administered as able. Anita Lundberg RN --- End of Report --- Plan of Care - Anita Lundberg RN - 02/21/2018 2:26 AM CDT [facility] Plan of Care Note Assessment: [...] and Signs and Symptoms Outcome: Progressing 02/20/18 0536 Pain, Acute Related Risk Factors (Acute Pain) surgery;procedure/treatment;persistent pain;disease process Signs and Symptoms (Acute Pain) alteration in muscle tone;sleep pattern alteration;verbalization of pain descriptors;questions meaning of pain;pacing/restlessness Goal: Acceptable Pain Control/Comfort Level 02/20/18 2356 Pain, Acute (Adult) Acceptable Pain Control/Comfort Level unable to achieve outcome Comments: [facility] Plan of Care Note Assessment: posterior neck pain worst than anterior Plan: IHR, assessment, pain control Subjective: I thought that I was going to be on a dilaudid drip Objective: Pt angry that she was not on a FOUNTAIN BRUSH ASSEMBLER pump, Dilaudid PO and IV given q3h, [...] 10:32 AM CDT 2 Patches lidocaine-epinephrine 1 %-1:[id number] injec tion Given 02/20/2018 10:21 AM CDT [...] (Given - P rovider: Marlen Segura, RADHA) 17 g, Oral, DAILY, First dose on [...] HS
documented in this encounter Care Teams Training Project Manager Relationship Specialty Start Date End Date Jose Holden MD PCP - General Otolaryngology 12/14/[address] [place] [address] documented as of this encounter
--- OUTSIDE RECORDS SUMMARY | 2022-09-14 11:55 | XMS_ITS | Encounter Summary ---
:1965 Author Organization [facility] Address [address], [place] [address] Care Team Providers Name Role Phone Jose Holden MD Primary Care Provider [phone] Reason for Visit Auth/Cert Specialty Diagnoses / [...] Expiration Date Visits Requ ested Visits Authorized [id number] 1 1 Encounter Details Date Type Department Care Team Description 02/20/2018 [facility] Pete Gonzalez MD [address] [place] [address] [place] [address] [phone] (Wo rk) Social History Tobacco Use Types [...] 12:45 PM CDT Fluoroscopy provided by a certified neurodiagnostic technologist. Exact fluoroscopy time is documented in end of exam information in EPIC Pete Gonzalez MD RAD GD documented in this encounter Visit Diagnoses Not on filedocumented in this encounter Care Teams Project Admin Relationship Specialty Start Date End Date Jose Holden MD PCP - General Otolaryngology 12/14/17 [facility] [place] [address] documented as of this encounter
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
--- OUTSIDE RECORDS SUMMARY | 2022-09-14 11:55 | XMS_ITS | Encounter Summary ---
:1965 Author Organization [facility] Address [address], [place] [address] Care Team Providers Name Role Phone Jose Holden MD Primary Care Provider [phone] Reason for Visit Auth/Cert Specialty Diagnoses [...] Expiration Date Visits Requ ested Visits Authorized [id number] 1 1 Encounter Details Date Type Department Care Team Description 02/20/2018 [facility] Pete Gonzalez MD [address] [place] [address] [place] [address] [phone] (Wo rk) Social History Tobacco Use Types [...] on filedocumented in this encounter Care Teams Insurance Consultant Relationship Specialty Start Date End Date Jose Holden MD PCP - General Otolaryngology 12/14/[address] [place] [address] [phone] (work) documented as of this encounter
--- OUTSIDE RECORDS SUMMARY | 2022-09-14 11:55 | XMS_ITS | Encounter Summary ---
:1965 [facility] Address [address], [place] [address] Care Team Providers Name Role Phone Jose Holden MD Primary Care Provider [phone] Reason for Referral Procedure/Equipment (Routine) - Incomplete Specialty Diagnoses / Procedures Referred By Contact Refer red To Contact Diagnoses Cervical spondylosis with radiculopathy (HRC) Sirisha Rankin, Procedures XR Cervical Spine AP/Lat Upright KALPANA SHER [address] [place] [address] Referral ID Status Reason Start Date Expiration Date Visits V isits Requested Authorized [id number] Incomplete 02/21/2018 05/23/2019 1 1 (Routine) Specialty Diagnoses / Procedures Referred By Contact Refer red To Contact Sirisha Rankin APRN, CNP [address] [place] [address] Referral ID Status Reason Start Date Expiration Date Visits Requ ested Visits Authorized (Routine) - Incomplete Specialty Diagnoses / Procedures Referred By Contact Refer red To Contact Procedures Marky Gonzalez MD XR C-Arm 0-30 Minutes [address] [place] [address] Referral ID Status Reason Start Date Expiration Date Visits V isits Requested Authorized [id number] Incomplete 02/20/2018 05/22/2019 1 1 Procedure/Equipment (Routine) - Incomplete Specialty Diagnoses / Procedures Referred By Contact Refer red To Contact Procedures Lois Pham, STEPHANIE XR Cervical Spine AP/Lat [address] [place], [place] [address] Referral ID Status Reason Start Date Expiration Date Visits V isits Requested Authorized [id number] Incomplete 02/20/2018 05/22/2019 1 1 (Routine) - Incomplete Specialty Diagnoses / Procedures Referred By Contact Refer red To Contact Procedures Marky Gonzalez MD XR C-Arm 30-[address] [place] [address] XR C-Arm 0-30 Minutes [place], [place] [address] Referral ID Status Reason Start Date Expiration Date Visits V isits Requested Authorized [id number] Incomplete 02/20/2018 05/22/2019 1 1 (Routine) - Incomplete Specialty Diagnoses / Procedures Referred By Contact Refer red To Contact Procedures Marky Gonzalez MD XR C-Arm 2.5-[address] [place] [address] Referral ID Status Reason Start Date Expiration Date Visits V isits Requested Authorized [id number] Incomplete 02/20/2018 05/22/2019 1 1 Reason for [...] Expiration Date Visits Requ ested Visits Authorized [id number] 1 1 Encounter Details Date Type Department Care Team Description 02/20/2018 - Hospital [facility] Marky Gonzalez, Cervical spondylosis with ra diculopathy (Primary Dx); 02/23/2018 Encounter [address] Ervin MD Cervical vertebral fusion; [place], [place] [address] [place] 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 ([facility]); [address] Neck pain; [phone] [facility], Screening procedure; [place] [address] Pseudarthrosis after fusion or arthrodes is; [phone] Bipolar II diso rder ([facility]); (Work) Moderate persistent asthma without [...] in this encounter Discharge Summaries Sirisha Rankin, PARTS EXPEDITER, SAMPLE CHECKER - 02/23/2018 9:09 AM CDT Neurosurgery Discharge [...] Hospital Course: Angie Bender was admitted to [facility] on 02/20/2018 following posterior C2-T3 with [...] 9.4 - 12.4 fl Narrative Performed at [facility], [address] [place] [address] Physical Exam: BP 124/78 Pulse 74 Temp [...] in strength to your extremeties. Neurosurgery clinic [phone]. If it is after hours, please call [...] RN on 03/07 at 11AM at [address] [facility], 2nd floor. 2. Follow up with Dr. Gonzalez/Lois Pham PA-C/Sirisha Maher NP on 04[facility]00PM [facility] Patient also instructed to call clinic at [phone] or hospital for any questions or concerns. Patient verbalizes understanding and states no further questions at this time. 3. Follow up with PCP for any medical issues Total time spent at the time of discharge was 30 minutes Sirisha Maher APRN, CNP [facility]#[phone] documented in this encounter Discharge Instructions Discharge InstructionsDonna Ellis RN - 02/23/2018 10:42 AM CDT Hospital Contact Information [address] [address] General Information Discharging physician: Dr. Gonzalez Maria [facility] Health Resources Emergency & Urgently Needed Care: For emergencies call 911 and/or get medical help right away. If you are a [facility] member and have medical needs after clinic hours you may [facility] [phone] or . Fall Prevention Recommendations ??? Follow [...] of Report --- Sneha Maher, Sirisha Celaya, PARTS EXPEDITER, SAMPLE CHECKER - 02/23/2018 9:02 AM CDT Neurosurgery Progress [...] including C3- T1 posterior fusion (done in [place] approx 6 years ago), with C6-T1 pseudoarthrosis, [...] Dc home today ?? Sirisha Maher, NIKKY, SAMPLE CHECKER 02/23/2018, 9:02 AM Neurosurgery Pgr#[phone] Jolene Kaur PA-C - 02/22/2018 12:45 PM [...] including C3- T1 posterior fusion (done in [place] approx 6 years ago), with C6-T1 pseudoarthrosis, [...] Lois Pham PA-C, 02/22/2018, 9:05 AM Neurosurgery [phone] He Reyes MD - 02/22/2018 8:29 AM [...] He Reyes M.D. [facility] [phone] INTERVAL HISTORY: She started tizanidine last night [...] 02/22/18 0743 Current Outpatient Prescriptions Ordered in [facility] Medication Sig Dispense Refill ??? [...] TIME SPENT: 35 minutes including 50% time [id number] time counseling her about her diagnosis and treatment options, and coordinating care with the primary team. DECISION-MAKING: The level of decision-making in this case is high/complex due to the complexity of medical problems, acute/chronic pain, opioid analgesia issues, and behavioral factors. He Reyes M.D. Brooklyn Whittington - 02/21/2018 1:47 PM CDT [facility] Care Management Screening Admission Info: [...] She see Dr Dr Estephanie Franz at [facility]. No DC needs anticipated. I verified the demographics on the face sheet for the correct address, phone number, emergency contact and PCP information. Brooklyn Whittington RN CM [phone] Lois Pahm PA-C - 02/21/2018 9:23 AM CDT Neurosurgery Progress Note Date of service: 02/21/2018 Subjective: Feels sore. Upset she did not have AUTOMATIC OPERATOR overnight. Wants to go smoke. Wants to [...] there were a couple of options including AUTOMATIC OPERATOR vs IV pain medications for post op pain control, and rationale for non AUTOMATIC OPERATOR at this time. Did discuss that would not recommend DC as drain still has high output. Upright xrays prior to DC Up with assistance Continue hemovac until <30/shift Soft collar when OOB, PRN in bed for comfort PT/OT Dispo: Anticipate home in next 1-2 days pending drain output Losi Pham PA-C, 02/21/2018, 9:23 AM Neurosurgery [phone] He Reyes MD - 02/20/2018 1:20 PM [address] Note from Dr. Covarrubias on 02/13/18: ? 1. On the day of surgery please order an Inpatient pain consult 2. Ketamine 5mg/h during surgery ?? Recommendations for opioids: ?? If using a AUTOMATIC OPERATOR: No oral opioids Start a AUTOMATIC OPERATOR pump with Dilaudid continuous IV infusion at a basal rate of 0.1 mg/hr with AUTOMATIC OPERATOR boluses of 0.2-0.4 mg every 10 minutes. ?? If not using a AUTOMATIC OPERATOR: Start dilaudid 2-4mg q3h prn (alternatively [...] * Marky Gonzalez MD - Primary PHYSICIAN PSYCHOLOGY ASSISTANT-Meka Pham Pre-op Diagnosis: * Cervical spondylosis with [...] The procedure was medically necessary for an parts room assistant because Dr. Gonzalez needed the operative [...] Lois Pham PA-C, 02/20/2018, 3:25 PM Neurosurgery [phone] Marky Gonzalez MD - 02/20/2018 12:00 AM CDT ANGIE BENDER CSN: [id number] OPERATIVE REPORT DATE OF SURGERY: 02/20/2018 : 1965 SURGEON: MARKY GONZALEZ MD PSYCHOLOGY ASSISTANT: Lois Pham PA-C. PREOPERATIVE DIAGNOSES: 1. Status [...] performing all critical portions. MD YOLANDE COLEMAN/ALESSANDRO /[id number] cc: MARKY GONZALEZ MD documented in this [...] the risk. 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 She also [...] He Reyes M.D. [facility] [phone] HISTORY OF PRESENT ILLNESS: Per Chart Review: [...] headache Opioid prescriber: Rosetta Martin-LEDY Jerry MD-valium CEMENT GUN OPERATOR database review: Risk Factors: History of [...] Lois Pham PA-C ??? glucose-ascorbic acid (aka [id number]) chewable tablet 4 Tab 4 Tab Oral [...] TIME SPENT: 70 minutes including 50% time eocv-ok-erod time counseling her about her diagnosis and [...] failure. Anatomic alignment. Shoulder prosthesis. Sirisha Maher PARTS EXPEDITER, SAMPLE CHECKER RAD GD (ABNORMAL) Complete Blood Count-No Diff (02/22/2018 12:36 PM CDT) P athologist Signature WBC 10.2 4.0 - 11.0 [facility] k/ul HOSPITAL RBC 3.36 (L) 4.0 - 5.2 [facility] M/ul [facility] Hemoglobin 11.1 (L) 12.0 - 16.0 [facility] g/dl HOSPITAL HCT 33.2 (L) 36.0 - 46.0 [facility] MCV 98.8 80 - [address] [facility] MCH 33.0 26 - [address] [facility] MCHC 33.4 32 - 36 [facility] g/dl HOSPITAL RDW 14.4 11.5 - 14.5 [facility]PITAL Platelets 183 150 - 450 [facility] k/[facility] MPV 10.6 9.4 - 12.4 [facility] Specimen Anatomical Collection Method Collection Time Receive d Time (Source) Location / / Volume Laterality 02/22/2018 12:36 02/22/2018 PM CDT 12:[address] [facility] - 02/22/2018 12:46 PM C DT Performed at [facility] , [address] [place] [address] Lois Pham PA-C LAB_1 Performing Organization Address City/State/ZIP Code Phon e Number [id number] [place] [address] XR Cervical Spine AP/Lat Upright (02/21/2018 9:50 [...] Address City/State/ZIP Code Phon e Number [address] [address], [facility] [phone] (ABNORMAL) Basic Metabolic Panel (02/21/2018 7:12 AM CDT) athologist Signature Sodium 138 136 - 145 [facility] mmol/L [facility] Potassium 3.9 3.5 - 5.1 [facility] mmol/L [facility] Chloride 111 (H) 98 - 109 [facility] mmol/L [facility] CO2 20 20 - 29 [facility] mmol/L [facility] Anion Gap 7 7 - 16 [facility] (calc.) mmol/L [facility] Glucose 117 70 - 180 [facility] mg/dl [facility]OSPITAL Calcium 8.3 (L) 8.4 - 10.2 [facility] mg/dl [facility]ITAL BUN 14 7 - 26 [facility] mg/dl [facility] Creatinine 0.63 0.55 - [facility] 1.02 mg/dl HOSPITAL GFR, Estimated >60 >60 [facility] ml/min/1.7 [facility] 3m2 GFR, Est., If >60 >60 [facility] Black ml/min/1.7 [facility] 3m2 Specimen Anatomical Collection Method Collection Time Receive d Time (Source) Location / / Volume Laterality 02/21/2018 7:12 AM 8 7:13 CDT [address] [facility] - 02/21/2018 7:47 AM CD T Performed at [facility] , [address] [place] [address] Lois Pham PA-C LAB_1 Performing Organization Address City/State/ZIP [place] [address] [address], [facility] (ABNORMAL) Hemogram with Plts (02/21/2018 7:12 AM CDT) athologist Signature WBC 10.0 4.0 - 11.0 [facility] RBC 3.29 (L) 4.0 - 5.2 [facility] Hemoglobin 10.7 (L) 12.0 - 16.0 [facility] g/dl [facility] HCT 32.2 (L) 36.0 - 46.0 [facility] MCV 97.9 80 - 100 [facility] MCH 32.5 26 - [address] [facility] MCHC 33.2 32 - 36 [facility] g/dl [facility] RDW 13.9 11.5 - 14.5 [facility] Platelets 186 150 - 450 [facility] MPV 10.3 9.4 - 12.4 [facility] Specimen Anatomical Collection Method Collection Time Receive d Time (Source) Location / / Volume Laterality 02/21/2018 7:12 AM 8 7:13 CDT [address] [facility] - 02/21/2018 7:26 AM CD T Performed at [facility] , [address] [place] [address] Lois Pham PA-C LAB_1 Performing Organization Address City/[facility]/ZIP Code Phon e Number [address] [address], [facility] Glucose, Whole Blood POC (02/20/2018 11:20 PM CDT) P athologist Signature Glucose, Whole 140 70 - 180 [facility] Blood mg/dl [facility]OSPITAL Comment: Point of Care Testing No Action Required Specimen Anatomical Collection Method Collection Time Receive d Time (Source) Location / / Volume Laterality 02/20/2018 11:20 02/20/2018 PM CDT 11:26 PM CDT Marky Gonzalez MD LAB_1 Performing Organization Address [facility] Phon e Number [address] [address], [place] [phone] Glucose, Whole Blood POC (02/20/2018 5:05 PM CDT) P athologist Signature Glucose, Whole 145 70 - 180 [facility] Blood mg/dl [facility]PITAL Comment: Point of Care Testing No Action Required Specimen Anatomical Collection Method Collection Time Receive d Time (Source) Location / / Volume Laterality 02/20/2018 5:05 PM 8 5:25 CDT PM CDT Marky Gonzalez MD LAB_1 Performing Organization Address City/[facility]/ZIP [facility] Phon e Number [address] [address], [place] Glucose, Whole Blood POC (02/20/2018 3:45 [...] Address City/State/ZIP Code Phon e Number [address] [address], [place] XR C-Arm 0-30 Minutes (02/20/2018 2:05 PM CDT) Anatomical Region Laterality Modality Other Specimen (Source) Anatomical Location Collection Method / Collectio n Time Received Time / Laterality Volume Narrative 02/20/2018 2:06 PM CDT Fluoroscopy provided by a orthopaedic technologist. Exact fluoroscopy time is documented in end of exam information in EPIC Marky Gonzalez MD RAD GD XR C-Arm 2.5-3 Hours (02/20/2018 12:45 PM CDT) Anatomical Region Laterality Modality Other Specimen (Source) Anatomical Location Collection Method / Collectio n Time Received Time / Laterality Volume Narrative 02/20/2018 12:45 PM CDT Fluoroscopy provided by a orthopaedic technologist. Exact fluoroscopy time is documented in end of exam information in EPIC Marky Gonzalez MD RAD GD XR C-Arm 30-59 Minutes (02/20/2018 12:36 PM CDT) Anatomical Region Laterality Modality Other Specimen (Source) Anatomical Location Collection Method / Collectio n Time Received Time / Laterality Volume Narrative 02/20/2018 12:36 PM CDT Fluoroscopy provided by a orthopaedic technologist. Exact fluoroscopy time is documented in [...] Address City/State/ZIP Code Phon e Number [address] [address], [place] Glucose, Whole Blood POC (02/20/2018 6:25 AM CDT) athologist Signature Glucose, Whole 90 70 - 180 [facility] Blood mg/dl [facility] Specimen Anatomical Collection Method Collection Time Receive d Time (Source) Location / / Volume Laterality 02/20/2018 6:25 AM 8 6:34 CDT AM CDT Marky Gonzalez MD LAB_1 Performing Organization Address City/[facility]/ZIP [facility] Phon e Number [address] [address], [facility] ABO/RH(D) Retype (02/20/2018 6:22 AM CDT) athologist Signature ABO/RH(D) A NEGATIVE [facility] Specimen Anatomical Collection Method Collection Time Receive d Time (Source) Location / / Volume Laterality 02/20/2018 6:22 AM 8 6:[address] [facility] - 02/20/2018 7:06 AM CD T Performed at [facility] , [address] [place] [address] Marky Gonzalez MD LAB_1 Performing Organization Address [facility] Phon e Number [address] [address], [facility] [phone] INR/Protime (PT/INR) (02/20/2018 6:08 AM CDT) athologist Signature Protime 13.0 12.0 - 14.5 [facility] INR 1.0 0.9 - 1.1 [facility] Specimen Anatomical Collection Method Collection Time Receive d Time (Source) Location / / Volume Laterality 02/20/2018 6:08 AM 8 6:[address] [facility] - 02/20/2018 6:40 AM CD T Performed at [facility] , [address] [place] [address] Sirisha Maher APRN, SAMPLE CHECKER LAB_1 Performing Organization Address [facility]/ZIP [facility] Phon e Number [address] [address], [facility] Hemogram with Platelets (02/20/2018 6:08 AM CDT) athologist Signature WBC 6.7 4.0 - 11.0 [facility] k/ul [facility] RBC 4.13 4.0 - 5.2 [facility] M/ul [facility] Hemoglobin 13.5 12.0 - 16.0 [facility] g/dl [facility] HCT 39.8 36.0 - 46.[address] [facility]PITAL MCV 96.4 80 - [address] [facility] MCH 32.7 26 - [address] [facility] MCHC 33.9 32 - 36 [facility] g/dl HOSPITAL RDW 13.8 11.5 - 14.5 [facility] Platelets 245 150 - 450 [facility] k/[facility] MPV 10.6 9.4 - 12.4 [facility] Specimen Anatomical Collection Method Collection Time Receive d Time (Source) Location / / Volume Laterality 02/20/2018 6:08 AM 8 6:[address] CD[address] [facility] - 02/20/2018 6:32 AM CD T Performed at [facility] , [address] [place] [address] Sirisha Maher APRN, SAMPLE CHECKER LAB_1 Performing Organization Address [facility]/State/ZIP [place] [address] (ABNORMAL) Basic Metabolic Panel (02/20/2018 6:08 AM CDT) athologist Signature Sodium 139 136 - 145 [facility] mmol/L [facility] Potassium 4.4 3.5 - 5.1 [facility] mmol/L [facility] Comment: Specimen Slightly Hemolyzed Hemolysis May Affect Result Chloride 109 98 - 109 mmol/L [facility] AL CO2 18 (L) 20 - 29 mmol/L [facility] L Anion Gap (calc.) 12 7 - 16 mmol/L [facility] Glucose 96 70 - 180 mg/dl [facility] Calcium 9.4 8.4 - 10.2 mg/dl [facility] EHSAN BUN 14 7 - 26 mg/dl [facility] Creatinine 0.69 0.55 - 1.02 mg/dl [facility]ITAL GFR, Estimated >60 >60 ml/min/1.73m2 [facility] GFR, Est., If Black >60 >60 ml/min/1.73m2 [facility] Specimen Anatomical Collection Method Collection Time Receive d Time (Source) Location / / Volume Laterality 02/20/2018 6:08 AM 8 6:22 CDT [address] [facility] - 02/20/2018 6:52 AM CD T Performed at [facility] , [address] [place] [address] Sirisha Maher APRN SAMPLE CHECKER LAB_1 Performing Organization Address City/[facility] Phon e Number [address] [address], [facility] aPTT (Activated Partial Thromboplastin Time) (02/20/2018 6:08 AM CDT) P athologist Signature PTT 26.8 24.0 - 37.0 [facility] Specimen Anatomical Collection Method Collection Time Receive d Time (Source) Location / / Volume Laterality 02/20/2018 6:08 AM 8 6:[address] [facility] - 02/20/2018 6:40 AM CD T Performed at [facility] , [address] [place] [address] Sirisha Maher APRN, SAMPLE CHECKER LAB_1 Performing Organization Address City/[facility] Phon e Number [address] [address], [facility] [phone] ABO Rh & Antibody Screen (Type & Screen) (02/20/2018 6:07 AM CDT) Patholo gist Method Time Signature Crossmatch 02/23/2018 [facility] A[facility]/RH(D[facility] A NEGATIVE [facility] Antibody Screen NEGATIVE [facility] Specimen Anatomical Collection Method Collection Time Receive d Time (Source) Location / / Volume Laterality 02/20/2018 6:07 AM 8 6:22 CDT AM CDT [facility] - 02/20/2018 7:10 AM CD T Performed at [facility] , [address] [place] [address] Sirisha Maher APRN, CNP LAB_1 Performing Organization Address City/State/ZIP Code Phon e Number [address] [address], [facility] EKG IP (02/20/2018 12:00 AM CDT) [...] current order for HS prn. plz review. [id number]. Response: Valium one time dose now and [...] notification: 0400 hours and 55 minutes Reason: [id number]- Pt reporting oral/IV pain meds ineffective. Pt [...] angry that she was not on a AUTOMATIC OPERATOR pump, Dilaudid PO and IV given q3h, [...] PM CDT 50 mcg 25-50 mcg, Intravenous, [id number], Pain, Starting on Tue02/20/18 at 1451, Until [...] Group 1) 0743 (Given - Provider: Alec Gfiford RN) 0818 (Given - Provider: Marlen Segura [...] HS
documented in this encounter Care Teams Carpenters Supervisor Relationship Specialty Start Date End Date Jose Holden MD PCP - General Otolaryngology 12/14/17 [address] [place] [address] documented as of this encounter
--- OUTSIDE RECORDS SUMMARY | 2022-09-14 11:55 | XMS_ITS | Encounter Summary ---
:1965 Author [facility] Address [address] [address] Care Team Providers Name Role Phone Jose Holden MD Primary Care Provider [phone] Reason for Visit Auth/Cert Specialty Diagnoses / [...] Expiration Date Visits Requ ested Visits Authorized [id number] 1 1 Encounter Details Date Type Department Care Team Description 02/21/2018 [facility] Pete Gonzalez MD [address] [place] [address] [place] [address] [phone] (Wo rk) Social History Tobacco Use Types [...] on filedocumented in this encounter Care Teams Secondary English Teacher Relationship Specialty Start Date End Date Jose Holden MD PCP - General Otolaryngology 12/14/[address] [place] [address] documented as of this encounter
--- OUTSIDE RECORDS SUMMARY | 2022-09-14 11:55 | XMS_ITS | Encounter Summary ---
:1965 Author [facility] Address [address] [address] Care Team Providers Name Role Phone Jose Holden MD Primary Care Provider [phone] Reason for Visit Auth/Cert Specialty Diagnoses / [...] Expiration Date Visits Requ ested Visits Authorized [id number] 1 1 Encounter Details Date Type Department Care Team Description 02/20/2018 [facility] Pete Gonzalez MD [address] [place] [address] [place] [address] [phone] (Wo rk) Social History Tobacco Use Types [...] PM CDT Fluoroscopy provided by a lead medical technologist. Exact fluoroscopy time is documented in end of exam information in EPIC Pete Gonzalez MD RAD GD documented in this encounter Visit Diagnoses Not on filedocumented in this encounter Care Teams Envelope Fold Operator Relationship Specialty Start Date End Date Jose Holden MD PCP - General Otolaryngology 12/14/[address] [place] [address] documented as of this encounter
--- OUTSIDE RECORDS SUMMARY | 2022-09-14 11:55 | XMS_ITS | Encounter Summary ---
:1965 [facility] Address [address] [place] [address] Care Team Providers Name Role Phone Jose Holden MD Primary Care Provider [phone] Encounter Details Date Type Department Care Team [...] on filedocumented in this encounter Care Teams Certified Lactation Counselor Relationship Specialty Start Date End Date Jose Holden MD PCP - General Otolaryngology 12/14/17 [place] [address] documented as of this encounter
--- OUTSIDE RECORDS SUMMARY | 2022-09-14 11:55 | XMS_ITS | Encounter Summary ---
:1965 Author Organization [facility] Address [address], [place] [address] Care Team Providers Name Role Phone Jose Holden MD Primary Care Provider [phone] Encounter Details Date Type Department Care Team Description 02/13/2018 Orders Only External to Jose Holden MD [address] [place], [place] [address] (Wo rk) Social History [...] an attachment that is no t available. Joes Holden MD LAB_1 documented in this encounter Visit Diagnoses Not on filedocumented in this encounter Care Teams Heavy Duty Custodian Relationship Specialty Start Date End Date Jose Holden MD PCP - General Otolaryngology 12/14/17 [address] [place] [address] documented as of this encounter
--- OUTSIDE RECORDS SUMMARY | 2022-09-14 11:55 | XMS_ITS | Encounter Summary ---
:1965 Author Organization [facility] Address [address] [address] Care Team Providers Name Role Phone Jose Holden MD Primary Care Provider [phone] Reason for Visit Reason Onset Date Comments Refill 03/01/2018 Encounter Details Date Type Department Care Team Description 03/01/2018 Refill [facility] Neuroscience [place] Chava Simon RN Refill Neurosurgery/Ortho [address] [place] [address] Social History Tobacco Use Types [...] as per standard weaning. Sirisha Jefferson APRN, PRODUCTION HAND 03/01/2018, 11:49 AM Chava Simon RN - [...] pt. have a f/u appointment: 04/05/2018 Pharmacy: [facility] pharmacy Chava Simon RN 03/01/2018, 11:40 AM documented in this encounter Plan of Treatment Not on filedocumented as of this encounter Visit Diagnoses Not on filedocumented in this encounter Care Teams Technical Project Manager Relationship Specialty Start Date End Date Jose Holden MD PCP - General Otolaryngology 12/14/[address] [place], [place] [address] [address] documented as of this encounter
--- OUTSIDE RECORDS SUMMARY | 2022-09-14 11:55 | XMS_ITS | Encounter Summary ---
:1965 Author Organization [facility] Address [address] [place] [address] Care Team Providers Name Role Phone Jose Holden MD Primary Care Provider Encounter Details Date Type Department Care Team Description 02/14/2018 Telephone [facility] Chava Simon, RN [place] Neurosurgery/ Ortho Spine [address] [place] [address] Social History Tobacco Use Types Packs/Day [...] if we have received her preop yet. Safety And Occupational Health Manager relayed we have not. Patient was given [phone] to have preop be faxed to us. Patient states she already talked to them and they said they already sent it but she will reach out to them again. Will await a return call from patient/watch out for fax. Michael Cruz 02/14/2018, 10:06 AM Chava Simon RN - 02/14/2018 9:11 AM CDT I still have not received patient's preop from [facility]. Could you please call patient and make sure she has had it faxed to us? Chava Simon RN 02/14/2018, 9:11 AM documented in this encounter Plan of Treatment Not on filedocumented as of this encounter Visit Diagnoses Not on filedocumented in this encounter Care Teams Digital Media Buyer Relationship Specialty Start Date End Date Jose Holden MD PCP - General Otolaryngology 12/14/17 [facility] [address] documented as of this encounter
--- OUTSIDE RECORDS SUMMARY | 2022-09-14 11:56 | XMS_ITS | Encounter Summary ---
:1965 Author Organization [facility] Address [address] [place] [address] Care Team Providers Name Role Phone Jose Holden MD Primary Care Provider [phone] Reason for Referral Consult/Transfer Care (Routine) - Closed Specialty Diagnoses / Procedures Referred By Contact Refer red To Contact Neurosurgery Diagnoses Pseudarthrosis after fusion or arthrodesis Pete Gonzalez MD [facility] Neurosurgery/Ortho [address] [place] [address] [place] [address] Phone: Fax: Referral ID Status Reason Start Date Expiration Date Visits Requ ested Visits Authorized [id number] Closed 01/17/2018 04/18/2019 1 1 Scheduling Instructions Your provider has recommended an appoint ment for a pre-operative pain consult with [facility].?? You may call [phone] to schedule your appointment.?? If you prefer, a mirela billy will contact you within the next 3 business days to assist you in setting u p this appointment. CHECKER Reason for Visit Reason Comments Revisit Encounter Details Date Type Department Care Team Description 01/17/2018 Office Visit [facility], Pseudarthr osis after [facility] MD fusion or arthrodesis Neurosurgery/Ortho [address] (Primar y Dx) [address] [place] [address] [place] [address] [phone] Social History Tobacco Use Types Packs/Day Years [...] Comments Blood Pressure 137/83 01/17/2018 11:51 AM FOOD CHECKER Pulse 83 01/17/2018 11:51 AM FOOD CHECKER Temperature 36.5 ??C (97.7 ??F) 01/17/2018 11:51 AM FOOD CHECKER Respiratory Rate 16 01/17/2018 11:51 AM FOOD CHECKER Oxygen Saturation - - Inhaled Oxygen Concentration [...] business days) Please call Ana Rosa at [phone] if you have not heard from her. [...] prior to surgery. Please fax preops to [phone] Nothing to eat or drink from midnight [...] and Apply plenty of Hibiclens*, a special school cleaner, to a clean, wet washcloth. Wash [...] 8am-5pm, please call the Neurosurgery Clinic at [phone] if youhave any concerns related to your surgery before going to the Emergency Room, your family physician,or an Urgent Care. After hours call the [facility] at [phone]. PAIN MEDICATION POLICY The Department of Neurosurgery [...] duringweekend hours. Day of surgery, arrive at [facility] on 3rd floor 2 hours prior to surgery. The Same Day Surgery Nurses will call you 1-3 days prior to surgery to inform you what time you should arrive for your surgery. If they do not reach you, please call if your surgery is at [facility]. Review your surgery packet. Contact the Neurosurgery Center [phone] if you have any questions or concerns CHECKER documented in this encounter Progress Notes Pete [...] is prone to typos and grammatical errors. CHECKER documented in this encounter Plan of Treatment Scheduled Referrals Name Type Priority Associated Diagnoses Order S chedule PRE-OP PAIN CONSULT Referral Routine Pseudarthrosis after fusion Ordered: 01/17/2018 - ADULT or arthrodesis documented as of this encounter Procedures Procedure Name Priority Date/Time Associated Diagnosis Comme nts MRSA/MSSA PRE-OP Routine 01/17/2018 1:48 PM Pseudarthrosis aft er Results for this CULTURE FOOD CHECKER fusion or arthrodesis proced ure are in the results section. documented in this encounter Results MRSA/MSSA Pre-Op Culture (01/17/2018 1:48 PM FOOD CHECKER) Component Value Ref Test Analysis Performed At [facility] Range Method Time Signature Specimen Nose Swab [facility] Description LABORATORIES Special Unspecified [facility] Requests LABORATORIES Culture No Staphylococcus [facility] aureus Isolated LABORATORIES Report Status 01/18/2018 [facility] Final LABORATORIES Specimen Anatomical Collection Method Collection Time Receive d Time (Source) Location / / Volume Laterality Nasal swab taken NASAL STRUCTURE / 01/17/2018 1:48 PM 01/17/2018 1:49 (situation) Unknown FOOD CHECKER PM FOOD CHECKER Pete Gonzalez MD LAB_1 Performing Organization Address City/State/ZIP Code Phon e Number [facility] LABORATORIES [phone] documented in this encounter Visit Diagnoses Diagnosis Pseudarthrosis after fusion or arthrodes is - Primary Arthrodesis status documented in this encounter Care Teams Brakeshoe Repairer Relationship Specialty Start Date End Date Jose Holden MD PCP - General Otolaryngology 12/14/17 [address] [place] [address] documented as of this encounter
--- OUTSIDE RECORDS SUMMARY | 2022-09-14 11:56 | XMS_ITS | Encounter Summary ---
:1965 Author Organization [facility] Address [address], [place] [address] Care Team Providers Name Role Phone Jose Holden MD Primary Care Provider [phone] Encounter Details Date Type Department Care Team Description 12/02/2017 Orders Only External to Pete Gonzalez MD [address] [place], [place] [address] (Wo rk) Social History Tobacco Use Types [...] 12/02/2017 12:00 AM Resul ts for this KAIAKO KURA KAUPAPA MAORI procedure are i n the results section. documented in this encounter Results MRI SPINE--SCAN (12/02/2017 12:00 AM KAIAKO KURA KAUPAPA MAORI) Anatomical Region Laterality Modality Other Specimen (Source) Anatomical Location Collection Method / Collectio n Time Received Time / Laterality Volume 12/02/2017 Narrative This result has an attachment that is no t available. Pete Gonzalez MD DUMMY/OTHER/AR documented in this encounter Visit Diagnoses Not on filedocumented in this encounter Care Teams Silverlight Developer Relationship Specialty Start Date End Date Jose Holden MD PCP - General Otolaryngology 12/14/17 [address] [place], [place] [address] documented as of this encounter
--- OUTSIDE RECORDS SUMMARY | 2022-09-14 11:56 | XMS_ITS | Encounter Summary ---
:1965 Author Organization [facility] Address [address], [place] [address] Care Team Providers Name Role Phone Unassigned, Provider Primary Care Provider Unavailable Reason for Referral Procedure/Equipment (Routine) - Incomplete Specialty Diagnoses / Procedures Referred By Contact Refer red To Contact Diagnoses Screening procedure Pseudarthrosis after fusion or arthrodesis Pete Gonzalez MD Procedures FL Video Swallow Study [address] [place] [address] Referral ID Status Reason Start Date Expiration Date Visits V isits Requested Authorized [id number] Incomplete 11/29/2017 02/28/2019 1 1 herapies (Routine) - Closed Specialty Diagnoses / Procedures Referred By Contact Refer herson To Contact Diagnoses Pseudarthrosis after fusion or arthrodesis Screening procedure Pete Gonzalez MD [address] [place] [address] Referral ID Status Reason Start Date Expiration Date Visits Requ ested Visits Authorized [id number] Closed 11/29/2017 01/28/2018 1 1 Scheduling Instructions Your provider has recommended an appoint ment with a [facility] Speech Therap[facility]. Please stop at the clinic check out desk for as sistance with scheduling or if you prefer to call for your appointment you may call [facility] at [phone]. We suggest you call your [facility] insurance company about your coverage and benefits for this appointment. ORATION DRILLER Consult/Transfer Care (Routine) - Closed Specialty Diagnoses / Procedures Referred By Contact Refer red To Contact Diagnoses Pseudarthrosis after fusion or arthrodesis Screening procedure Pete Gonzalez MD [address] [place] [address] Referral ID Status Reason Start Date Expiration Date Visits Requ ested Visits Authorized [id number] Closed 11/29/2017 02/28/2019 1 1 Scheduling Instructions Your provider has recommended an appoint ment with [facility] Ear, Nose and Throat. You may call [phone], optio n [phone], to schedule your appointment. If you prefer, a tassel snipper will contact you heena hebert the next 3 business days to assist you in setting up this appointment. We suggest you call your health insurance company about your coverage and benefits for this appo intment. ORATION DRILLER Procedure/Equipment (Routine) - Incomplete Specialty Diagnoses / Procedures Referred By Contact Refer red To Contact Diagnoses Screening procedure Pseudarthrosis after fusion or arthrodesis Pete Gonzalez MD Procedures XR Cervical Spine W Flex And Ext [address] [place] [address] Referral ID Status Reason Start Date Expiration Date Visits V isits Requested Authorized [id number] Incomplete 10/31/2017 01/30/2019 1 1 ORATION DRILLER Reason for Visit Reason Comments SECOND OPINION Consult/Transfer Care (Routine) - Closed Specialty Diagnoses / Procedures Referred By Contact Refer red To Contact Neurosurgery Ihsan Brooke MD [facility] [place]tho [address] [place] [address] [place] [address]. [place] [address] Phone: Fax: Referral ID Status Reason Start Date Expiration Date Visits Requ ested Visits Authorized [id number] Closed 09/26/2017 12/26/2018 1 1 Encounter Details Date Type Department Care Team Description 11/29/2017 Office Visit [facility] Pete Gonzalez, Pseudarthr osis after fusion or arthrodesis (Primary Dx); [facility] Cervical spondylosis with radiculopathy; Neurosurgery/Ortho [address] Bilater al occipital neuralgia; Spine [address] Screening procedure [address] [place] [address] [place] [address] [phone] Social History Tobacco Use Types Packs/Day Years Used Date Smoking Tobacco: Every Day Cigarettes 0.5 Smokeless Tobacco: Never Alcohol Use Standard Drinks/Week Comments No 0 (1 standard drink = 0.6 oz pure alcoho l) Sex Assigned at Date Recorded Not on file documented as of this encounter Last Filed Vital Signs Vital Sign Reading Time Taken Comments Blood Pressure 126/77 11/29/2017 10:21 AM EXPLORATION DRILLER Pulse 77 11/29/2017 10:21 AM EXPLORATION DRILLER Temperature - - Respiratory Rate - - Oxygen Saturation - - Inhaled Oxygen Concentration - - Weight 75.4 kg (166 lb 3.2 oz) 11/29/2017 10:21 AM EXPLORATION DRILLER Height 152.4 cm (5') 11/29/2017 10:21 AM EXPLORATION DRILLER Body Mass Index 32.46 11/29/2017 10:21 AM EXPLORATION DRILLER documented in this encounter Patient Instructions Patient InstructionsChava Simon RN - 11/29/2017 10:00 AM CST [facility] Patient Instructions Tests: You [...] your understanding. Please call the Neurosurgery Center [phone] with any further questions or concerns or if your symptoms worsen. Thank you for coming to see us today. We are your partner. ORATION DRILLER documented in this encounter Progress Notes Lois [...] after C3-T1 posterior cervical fusion done at [facility] in [place] multiple years ago. [...] on fentanyl, ms contin and oxycontin in [place]. PSURGHX:No past surgical history on file. PMEDHX:No past medical history on file. MEDICATIONS: Outpatient Prescriptions as of 11/29/2017: benzonatate (TESSALON) 100 MG capsule Take 100 mg by mouth. Note (11/29/2017): Received from: [facility] Received Sig: Take 1 capsule by mouth 3 times daily if needed for Cough. Disp: Rfl: budesonide-formoterol (SYMBICORT) 160-4.5 MCG/ACT inhaler Inhale 2 Puffs. Note (11/29/2017): Received from: [facility] Received Sig: INHALE 2 PUFFS BY [...] Tab by mouth. Note (11/29/2017): Received from: [employer] [facility] Received Sig: Take 1 tablet [...] No narrative on file ROS: Reviewed per [facility] Neurosurgery New Patient Health Packet [...] 4/5 C7 Triceps: 5/5 4/5 C8 Finger flexors/pan helper: 5/5 5/5 T1 Intrinsics: 5/5 5/5 Sensation: Intact with light touch bue/ble. Skin: Warm to touch to bilateral upper/lower extremities. No skin rashes or lesions noted RADIOLOGY: Personally reviewed CT scans from OSH as well as XR from here. No formal report for either available. Shows previous C3-T1 posterior fusion, appears fused C3-C6, screws at T1 appear lose. W4hlqazc through the facet joint. ASSESSMENT: 52 year old female s/p multiple previous cervical spine surgeries including C3-T1 posterior fusion (done in [place] approx 6 years ago), with C6-T1 pseudoarthrosis, [...] of the chart to: Ihsan Brooke MD [address] [id number] Lois Pham PA-C, 11/29/2017, 12:34 PM ORATION DRILLER documented in this encounter Plan of Treatment Scheduled Referrals Name Type Priority Associated Diagnoses Order S chedule Otolaryngology Consult Referral Routine Pseudarthrosis aft er Ordered: Adult/Peds fusion or arthro desis 11/29/2017 Screening procedure Speech Therapy Referral Routine Pseudarthrosis after Order ed: fusion or arthro desis 11/29/2017 Screening procedure documented as of this encounter Results FL Video Swallow Study (12/26/2017 1:03 PM EXPLORATION DRILLER) Anatomical Region Laterality Modality Neck, Chest Radio Fluoroscopy Specimen (Source) Anatomical Collection Method Collection Time Re ceived Time Location / / Volume Laterality 12/26/2017 1:03 PM EXPLORATION DRILLER Narrative 12/26/2017 6:00 PM EXPLORATION DRILLER ME VIDEO SWALLOW STUDY 12/26/2017 1:03 PM INDICATION: [...] note might be different from the original. ME VIDEO SWALLOW STUDY 12/26/2017 1:03 PM INDICATION: [...] W Flex And Ext (11/29/2017 9:54 AM EXPLORATION DRILLER) Anatomical Region Laterality Modality Spine, C-Spine, Neck Computed Radiograph y Specimen (Source) Anatomical Collection Method Collection Time Re ceived Time Location / / Volume Laterality 11/29/2017 9:54 AM EXPLORATION DRILLER Narrative 11/29/2017 10:59 AM EXPLORATION DRILLER XR CERVICAL SPINE W FLEX AND EXT [...] documented in this encounter Care Teams Gas Refrigerator Servicer Relationship Specialty Start Date End Date Unassigned, Provider PCP - General 08/05/03 12/13/[address] [place] [address] documented as of this encounter
--- OUTSIDE RECORDS SUMMARY | 2022-09-14 11:56 | XMS_ITS | Encounter Summary ---
:1965 Author Organization [facility] Address [address] [place] [address] Care Team Providers Name Role Phone Jose Holden MD Primary Care Provider [phone] Encounter Details Date Type Department Care Team Description 02/07/2018 [facility] Chava Simon RN [place] Neuro[facility]/ Ortho Spine [address] [place] [address]. [place] [address] Social History Tobacco Use Types [...] her pre-op is scheduled for 02/13/18 at [facility]. Clinic fax # was given. Patient will have clearance note faxed to clinic. Will post pone message to after the to check and see if pre-op has been received yet. Michael Cruz - 02/08/2018 1:37 PM CDT [facility] Michael Cruz 02/08/2018, 1:37 PM Michael Cruz Porfirio - 02/07/2018 11:27 AM CDT [facility] Michael Monroy Anthony 02/07/2018, 11:27 [...] on filedocumented in this encounter Care Teams Geothermal Installer Relationship Specialty Start Date End Date Jose Holden MD PCP - General Otolaryngology 12/14/17 [facility] [place] [address] documented as of this encounter
--- OUTSIDE RECORDS SUMMARY | 2022-09-14 11:56 | XMS_ITS | Encounter Summary ---
:1965 Author Organization [facility] Address [address], [place] [address] Care Team Providers Name Role Phone Jose Holden MD Primary Care Provider [phone] Reason for Visit Reason Comments Consult, New Patient vocal cord analysis Consult/Transfer Care (Routine) - Closed Specialty Diagnoses / Procedures Referred By Contact Refer red To Contact Diagnoses Pseudarthrosis after fusion or arthrodesis Screening procedure Pete Gonzalez MD [address] [place] [address] Referral ID Status Reason Start Date Expiration Date Visits Requ ested Visits Authorized [id number] Closed 11/29/2017 02/28/2019 1 1 Encounter Details Date Type Department Care Team Description 12/26/2017 Office Visit Specialty Center Jose Holden Cer vical vertebral 401 Otolaryngology MD Deyvi fusion (Primary Dx) [address] [place] [address] [place], [place] [phone] [address] Social History Tobacco Use Types Packs/Day Years [...] (166 lb 12.8 oz) 12/26/2017 2:06 PM YARN BLEACHING MACHINE OPERATOR Height - - Body Mass Index 32.58 11/29/2017 10:21 AM YARN BLEACHING MACHINE OPERATOR documented in this encounter Progress Notes Jose Holden MD - 12/26/2017 3:00 PM CST HPI: Angie Mosquera is a 52 y.o. old female who presents for vocal cord evaluation prior to cervical spine surgery. Patient has significant history of cervical spine surgery having approximate four procedures, three in [place] one here in the [place] area last year. After her last surgery, developed significant hoarseness, loss of voice for approximately three months. Cervical approach with her last surgery was left-hand side. 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 Not currently working. [...] software and may contain unintended word substitutions. BLEACHING MACHINE OPERATOR documented in this encounter Plan of Treatment Not on filedocumented as of this encounter Visit Diagnoses Diagnosis Cervical vertebral fusion - Primary Klippel-Feil syndrome documented in this encounter Care Teams Dough Mixer Helper Relationship Specialty Start Date End Date Jose Holden MD PCP - General Otolaryngology 12/14/17 [facility] [place] [address] documented as of this encounter
--- OUTSIDE RECORDS SUMMARY | 2022-09-14 11:56 | XMS_ITS | Encounter Summary ---
:1965 [facility] Address [address] [address] Care Team Providers Name Role Phone Jose Holden MD Primary Care Provider [phone] Reason for Visit Therapies (Routine) - Closed Specialty Diagnoses / Procedures Referred By Contact Refer red To Contact Diagnoses Pseudarthrosis after fusion or arthrodesis Screening procedure Pete Gonzalez MD [address] [place] [address] Referral ID Status Reason Start Date Expiration Date Visits Requ ested Visits Authorized [id number] Closed 11/29/2017 01/28/2018 1 1 Encounter Details Date Type Department Care Team Description 12/26/2017 Office Visit Pete Orona MD [address] [place] [address] Pharyngeal dysphagia [facility] Kaykay Wyman DEALER ACCOUNTS INVESTIGATOR [address] [place], [place] [id number] (Primary Dx) Speech Therapy [address] [place] [address]. [id number] [id number] Social History Tobacco Use Types Packs/Day Years Used Date Smoking Tobacco: Every Day Cigarettes 0.5 Smokeless Tobacco: Never Alcohol Use Standard Drinks/Week Comments No 0 (1 standard drink = 0.6 oz pure alcoho l) Sex Assigned at Date Recorded Not on file documented as of this encounter Patient Instructions Patient InstructionsKaykay Wyman SLP - 12/26/2017 12:30 PM CONTACT ASSEMBLER You had a swallow test today. I [...] sensation of food catching. Kaykay Monroy MA CCC/DEALER ACCOUNTS INVESTIGATOR Speech-Language Pathologist M-F Office: [phone] ACT ASSEMBLER documented in this encounter Progress Notes Kaykay Wyman, DEALER ACCOUNTS INVESTIGATOR - 12/26/2017 12:30 PM CST SPEECH LANGUAGE PATHOLOGY MODIFIED BARIUM SWALLOW INITIAL EVALUATION ASSESSMENT Patient is referred for dysphagia evaluation as part of surgical consultation related to past ACDF 1year ago in [place] with consideration of revision ACDF surgery in [...] food sticking, especially on textures that are tunnel drier operator (meats, breads, etc). I would [...] goals established as no further intervention from DEALER ACCOUNTS INVESTIGATOR service is warranted at this time. VISIT [...] Total Treatment Time: 45 minutes Kaykay Monroy CCC-DEALER ACCOUNTS INVESTIGATOR 12/26/2017 documented in this encounter Plan of Treatment Scheduled Referrals Name Type Priority Associated Diagnoses Order S chedule Speech Therapy Referral Routine Pseudarthrosis after fusio n or Ordered: 11/29/2017 arthrodesis Screening procedure documented as of this encounter Visit Diagnoses Diagnosis Pharyngeal dysphagia - Primary Dysphagia, pharyngeal phase documented in this encounter Care Teams Lap Winding Machine Operator Relationship Specialty Start Date End Date Jose Holden MD PCP - General Otolaryngology 12/14/17 [place] [address] documented as of this encounter
--- OUTSIDE RECORDS SUMMARY | 2022-09-14 11:56 | XMS_ITS | Encounter Summary ---
:1965 Author Organization [facility] Address [address], [place] [address] Care Team Providers Name Role Phone Jose Holden MD Primary Care Provider Reason for Visit Reason Comments QUESTIONS, GENERAL Encounter Details Date Type Department Care Team Description 01/25/2018 Telephone [facility] Pete Gonzalez MD QUESTIONS, GENERAL [facility] [address] [facility] Neurosurgery/Ortho S [place], [place] [address] [address] [place] [address] [phone] Social History Tobacco Use Types Packs/Day Years [...] she should receive a call from the medical surgery nurse in the next 1-3 weeks to discuss her surgery/date. Patient stated understanding and will call with any updates or changes. Chava Simon RN 01/25/2018, 11:04 AM RNEY LAWYER Gi De La Vega 01/25/2018 10:56 AM CST Patient calling to speak to RN. Regarding her MRI scan. RNEY LAWYER documented in this encounter Plan of Treatment Not on filedocumented as of this encounter Visit Diagnoses Not on filedocumented in this encounter Care Teams Nursing Service Administrator Relationship Specialty Start Date End Date Jose Holden MD PCP - General Otolaryngology 12/14/[address] [place] [address] documented as of this encounter
--- OUTSIDE RECORDS SUMMARY | 2022-09-14 11:56 | XMS_ITS | Encounter Summary ---
:1965 Author Organization [facility] Address [address] [place] [address] Care Team Providers Name Role Phone Jose Holedn MD Primary Care Provider [phone] Reason for Referral (Routine) - Incomplete Specialty [...] (*), IMAGE GUIDANCE ADD ON SPINE (*) [place] [address] Referral ID Status Reason Start Date Expiration Date Visits V isits Requested Authorized [id number] Incomplete 01/25/2018 04/26/2019 1 1 C VIDEO DIRECTOR Encounter Details Date Type Department Care Team Description 01/25/2018 Prep for [facility] Pete Gonzalez, Cervical s pondylosis with radiculopathy (Primary Dx); Surgery [facility] 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 [address] [place] [address] [phone] Social History Tobacco Use Types Packs/Day Years [...] Cervicalgia documented in this encounter Care Teams Third Mate Relationship Specialty Start Date End Date Jose Holden MD PCP - General Otolaryngology 12/14/17 [facility] [place] [address] documented as of this encounter
--- OUTSIDE RECORDS SUMMARY | 2022-09-14 11:56 | XMS_ITS | Encounter Summary ---
:1965 Author Organization [facility] Address [address], [place] [address] Care Team Providers Name Role Phone Jose Holden MD Primary Care Provider [phone] Encounter Details Date Type Department Care Team Description 12/02/2017 Orders Only External to Pete Gonzalez MD [address] [place], [place] [address] (Wo rk) Social History Tobacco Use Types [...] 12/02/2017 12:00 AM Resul ts for this [employer]AUFFEUR AIRPORT LIMOUSINE procedure are i n the results section. documented in this encounter Results MRI SPINE--SCAN (12/02/2017 12:00 AM CHAUFFEUR AIR[employer] LIMOUSINE) Anatomical Region Laterality Modality Other Specimen (Source) Anatomical Location Collection Method / Collectio n Time Received Time / Laterality Volume 12/02/2017 Narrative This result has an attachment that is no t available. Pete Gonzalez MD DUMMY/OTHER/AR documented in this encounter Visit Diagnoses Not on filedocumented in this encounter Care Teams Ballistics Professor Relationship Specialty Start Date End Date Jose Holden MD PCP - General Otolaryngology 12/14/17 [address] [place], [place] [id number] documented as of this encounter
--- OUTSIDE RECORDS SUMMARY | 2022-09-14 11:56 | XMS_ITS | Encounter Summary ---
:1965 Author Organization [facility] Address [address] [place] [address] Care Team Providers Name Role Phone Jose Holden MD Primary Care Provider [phone] Encounter Details Date Type Department Care Team Description 02/13/2018 Orders Only External to HP External, [place] [address] Social History Tobacco Use Types Packs/Day Years [...] filedocumented in this encounter Care Teams Laborer Shellfish Processing Relationship Specialty Start Date End Date Jose Holden MD PCP - General Otolaryngology 12/14/17 [place] [address] documented as of this encounter
--- OUTSIDE RECORDS SUMMARY | 2022-09-14 11:56 | XMS_ITS | Encounter Summary ---
:1965 Author Organization [facility] Address [address] [place] [address] Care Team Providers Name Role Phone Unassigned, Provider Primary Care Provider Unavailable Encounter Details Date Type Department Care Team Description 10/28/2005 [facility] Curtis Antoine Op Report-Archive [address] StreetBritton García [place] [address] [address] [facility] [phone] [place] [address] Social History Tobacco Use Types Packs/Day Years Used Date Smoking Tobacco: Never Assessed Sex Assigned at Date Recorded Not on file documented as of this encounter Plan of Treatment Not on filedocumented as of this encounter Visit Diagnoses Not on filedocumented in this encounter Care Teams Suspect Artist Supervisor Relationship Specialty Start Date End Date Unassigned, Provider PCP - General 08/05/03 12/13/17 [address] [place] [address] documented as of this encounter
--- OUTSIDE RECORDS SUMMARY | 2022-09-14 11:56 | XMS_ITS | Encounter Summary ---
:1965 Author Organization [facility] Address [address] [place] [address] Care Team Providers Name Role Phone Jose Holden MD Primary Care Provider [phone] Reason for Visit Reason Comments CONSULT POPC-dos 02-20 w/Dr oGnzalez Encounter Details Date Type Department Care Team Description 02/13/2018 Office Visit Stew Mcghee of [facility] Raul Stover MD cervical region Management [address] without myelopathy or [address] [place], [place] radiculopathy ([place] [address] Dx) [phone] Social History Tobacco Use Types Packs/Day Years [...] some medicines that are opioids: ??? Hydrocodone ([place], Vicodin, Lortab) ??? Oxycodone (OxyContin, Percocet) ??? [...] before you use any other medicines, including tsyi-abl-uhihkak medicines. Make sure my care team knows [...] team or apharmacist. You can also visit [employer] or [employer] and search medicine disposalto learn about drug disposal. You may also call the Drug Enforcement Administration (BARBY) Office of Diversion Control's Registration Call Center at to find an authorized blood collector in your community. ??? If your [...] Content Version: 10.9 Custom: HP/PN 6-16 ?? [id number] [employer], [facility]. Stew Covarrubias MD documented in [...] Sinusitis No past surgical history on file. TRACTOR SWEEPER OPERATOR Review: Allergies: Allergies Allergen Reactions ??? Adhesive [...] surgery Recommendations for opioids: If using a MBA INTERNSHIP: No oral opioids Start a MBA INTERNSHIP pump with Dilaudid continuous IV infusion at a basal rate of 0.1 mg/hr with MBA INTERNSHIP boluses of 0.2-0.4 mg every 10 minutes. If not using a MBA INTERNSHIP: Start dilaudid 2-4mg q3h prn (alternatively can [...] myelopathy documented in this encounter Care Teams Operator Command Support Systems Relationship Specialty Start Date End Date Jose Holden MD PCP - General Otolaryngology 12/14/17 [facility] [place] [place] [address] documented as of this encounter
--- OUTSIDE RECORDS SUMMARY | 2022-09-14 11:56 | XMS_ITS | Encounter Summary ---
:1965 Author Organization [facility] Address [address] [place] [address] Care Team Providers Name Role Phone Unassigned, Provider Primary Care Provider Unavailable Encounter Details Date Type Department Care Team Description 12/13/2006 [facility] Curtis Antoine Op Report-Archive [address]Britt[address] García [place] [address] [facility] [phone] [place] [address] Social History Tobacco Use Types Packs/Day Years Used Date Smoking Tobacco: Never Assessed Sex Assigned at Date Recorded Not on file documented as of this encounter Plan of Treatment Not on filedocumented as of this encounter Visit Diagnoses Not on filedocumented in this encounter Care Teams Feed Management Advisor Relationship Specialty Start Date End Date Unassigned, Provider PCP - General 08/05/03 12/13/17 [address] [place] [address] documented as of this encounter
--- OUTSIDE RECORDS SUMMARY | 2022-09-14 11:56 | XMS_ITS | Encounter Summary ---
:1965 Author Organization [facility] Address [address] [place] [address] Care Team Providers Name Role Phone Jose Holden MD Primary Care Provider [phone] Encounter Details Date Type Department Care Team Description 02/07/2018 Prep for Surgery [facility] Sneha Maher, [facility] Center Sirisha L, APR N, CUTTER WET MACHINE Neurosurgery/Ortho S [address] [place] [address] [place] [address] [phone] Social History Tobacco Use Types Packs/Day Years [...] on filedocumented in this encounter Care Teams Rare/Endangered Species Specialist Relationship Specialty Start Date End Date Jose Holden MD PCP - General Otolaryngology 12/14/[address] [place] [address] documented as of this encounter
--- OUTSIDE RECORDS SUMMARY | 2022-09-14 11:56 | XMS_ITS | Encounter Summary ---
:1965 [facility] Address [address] [place] [address] Care Team Providers Name Role Phone Jose Holden MD Primary Care Provider [phone] Encounter Details Date Type Department Care Team Description 01/17/2018 Telephone [facility] Chava Simon RN Center Neurosurgery/ Ortho Spine [address] [place] [address] Social History Tobacco Use Types [...] Chava Simon RN 01/17/2018, 1:26 PM L HEWER documented in this encounter Plan of Treatment Not on filedocumented as of this encounter Visit Diagnoses Not on filedocumented in this encounter Care Teams Heat Treating Bluer Relationship Specialty Start Date End Date Jose Holden MD PCP - General Otolaryngology 12/14/17 [address] [place] [address] documented as of this encounter
--- OUTSIDE RECORDS SUMMARY | 2022-09-14 11:56 | XMS_ITS | Encounter Summary ---
:1965 Author Organization [facility] Address [address], [place] [address] Care Team Providers Name Role Phone Jose Holden MD Primary Care Provider [phone] Encounter Details Date Type Department Care Team Description 12/02/2017 Orders Only External to Pete Gonzalez MD [address] [place], [place] [address] (Wo rk) Social History Tobacco Use Types [...] 12/02/2017 12:00 AM Resul ts for this HOTSHOT SUPERINTENDENT procedure are i n the results section. documented in this encounter Results MRI SPINE--SCAN (12/02/2017 12:00 AM HOTSHOT SUPERINTENDENT) Anatomical Region Laterality Modality Other Specimen (Source) Anatomical Location Collection Method / Collectio n Time Received Time / Laterality Volume 12/02/2017 Narrative This result has an attachment that is no t available. Pete Gonzalez MD DUMMY/OTHER/AR documented in this encounter Visit Diagnoses Not on filedocumented in this encounter Care Teams Can Line Operator Relationship Specialty Start Date End Date Jose Holden MD PCP - General Otolaryngology 12/14/17 [address] [place], [place] [address] documented as of this encounter
--- OUTSIDE RECORDS SUMMARY | 2022-09-14 11:56 | XMS_ITS | Encounter Summary ---
:1965 Author Organization [facility] Address [address] [place] [address] Care Team Providers Name Role Phone Jose Holden MD Primary Care Provider [phone] Encounter Details Date Type Department Care Team Description 01/20/2018 Telephone [facility] Chava Simon RN Center Neurosurgery/ Ortho Spine [address] [place] [address] Social History Tobacco Use Types Packs/Day [...] placed. Chava Simon RN 01/25/2018, 8:24 AM HMALLOW MACHINE OPERATOR Chava Simon RN - 01/24/2018 12:[address] Gonzalez reviewed imaging and is waiting until appropriate time to place case request. Chava Simon RN 01/24/2018, 12:45 PM HMALLOW MACHINE OPERATOR Gi De La Vega - 01/20/2018 11:21 AM CST Patient called to speak to RN. She has a new phone number. Please call her at [phone]. thanks HMALLOW MACHINE OPERATOR Chava Simon RN - 01/20/2018 11:15 AM CST Images from the original note were not included. Team please have Dr. Gonzalez review imaging which is now on PACs and place case request. Chava Simon RN 01/20/2018, 11:18 AM HMALLOW MACHINE OPERATOR documented in this encounter Plan of Treatment Not on filedocumented as of this encounter Visit Diagnoses Not on filedocumented in this encounter Care Teams Doll Maker Relationship Specialty Start Date End Date Jose Holden MD PCP - General Otolaryngology 12/14/[address] [place], [place] [address] [address] documented as of this encounter
--- OUTSIDE RECORDS SUMMARY | 2022-09-14 11:56 | XMS_ITS | Encounter Summary ---
:1965 Author Organization [facility] Address [address] [place] [address] Care Team Providers Name Role Phone Unassigned, Provider Primary Care Provider Unavailable Encounter Details Date Type Department Care Team Description 11/04/2005 [facility] Curtis Antoine Op Report-Archive [address] StreetBritton García [place] [address] [address] [facility] [phone] [place] [address] Social History Tobacco Use Types Packs/Day Years Used Date Smoking Tobacco: Never Assessed Sex Assigned at Date Recorded Not on file documented as of this encounter Plan of Treatment Not on filedocumented as of this encounter Visit Diagnoses Not on filedocumented in this encounter Care Teams Wall Steamer Relationship Specialty Start Date End Date Unassigned, Provider PCP - General 08/05/03 12/13/17 [address] [place] [address] documented as of this encounter
--- OUTSIDE RECORDS SUMMARY | 2022-09-14 11:56 | XMS_ITS | Encounter Summary ---
:1965 Author Organization [facility] Address [address], [place] [address] Care Team Providers Name Role Phone Jose Holden MD Primary Care Provider [phone] Reason for Visit Reason Comments QUESTIONS, GENERAL Encounter Details Date Type Department Care Team Description 01/19/2018 Telephone [facility] Pete Gonzalez MD QUESTIONS, GENERAL [facility] [address] [facility] Neurosurgery/Ortho S [place], [place] [address] [address] [place] [address] [phone] Social History Tobacco Use Types Packs/Day Years [...] of MRI was received via mail from [facility]. CD given to RN NCIAL SERVICES DIRECTOR Chava Simon RN - 01/19/2018 12:00 PM CST Patient states she will bring the MRI CD hopefully tomorrow 01/20/2018. Chava Simon RN 01/19/2018, 12:01 PM NCIAL SERVICES DIRECTOR Gi De La Vega - 01/19/2018 11:47 AM CST Patient calling to speak to RN. Would like to speak to him regarding an MRI CD? Please call her at [phone]. NCIAL SERVICES DIRECTOR documented in this encounter Plan of Treatment Not on filedocumented as of this encounter Visit Diagnoses Not on filedocumented in this encounter Care Teams Manager Strategic Sourcing Relationship Specialty Start Date End Date Jose Holden MD PCP - General Otolaryngology 12/14/17 [facility] [address] documented as of this encounter
--- OUTSIDE RECORDS SUMMARY | 2022-09-14 11:56 | XMS_ITS | Encounter Summary ---
:1965 Author Organization [facility] Address [address] [place] [address] Care Team Providers Name Role Phone Unassigned, Provider Primary Care Provider Unavailable Encounter Details Date Type Department Care Team Description 01/17/2006 [facility] Curtis Antoine Op Report-Archive [address] StreetBritton García [place] [address] [facility] [phone] [place] [address] Social History Tobacco Use Types Packs/Day Years Used Date Smoking Tobacco: Never Assessed Sex Assigned at Date Recorded Not on file documented as of this encounter Plan of Treatment Not on filedocumented as of this encounter Visit Diagnoses Not on filedocumented in this encounter Care Teams Subway Car Repairer Relationship Specialty Start Date End Date Unassigned, Provider PCP - General 08/05/03 12/13/17 [address] [place] [address] documented as of this encounter
--- OUTSIDE RECORDS SUMMARY | 2022-09-14 11:56 | XMS_ITS | Encounter Summary ---
:1965 Author Organization [facility] Address [address] [place] [address] Care Team Providers Name Role Phone Jose Holden MD Primary Care Provider [phone] Reason for Visit Procedure/Equipment (Routine) - Incomplete Specialty Diagnoses / Procedures Referred By Contact Refer red To Contact Diagnoses Screening procedure Pseudarthrosis after fusion or arthrodesis Pete Gonzalez MD Procedures FL Video Swallow Study [address] [place] [address] Referral ID Status Reason Start Date Expiration Date Visits V isits Requested Authorized [id number] Incomplete 11/29/2017 02/28/2019 1 1 Encounter Details Date Type Department Care Team Description 12/26/2017 Imaging [facility]ined[facility] MD Screening procedure; [facility] [address] [place], [place] [address]E Ps eudarthrosis after fusion or arthrodesis Radiology Fluoro S [address] [place] [address] [place] [address] [phone] (Wo rk) Social History Tobacco Use Types [...] Screening pr ocedure Results for this STUDY LEAD CUSTODIAN Pseudarthrosis after procedu re are in fusion or the results arthrodesis section. documented in this encounter Results FL Video Swallow Study (12/26/2017 1:03 PM LEAD CUSTODIAN) Anatomical Region Laterality Modality Neck, Chest Radio Fluoroscopy Specimen (Source) Anatomical Collection Method Collection Time Re ceived Time Location / / Volume Laterality 12/26/2017 1:03 PM LEAD CUSTODIAN Narrative 12/26/2017 6:00 PM LEAD CUSTODIAN FL VIDEO SWALLOW STUDY 12/26/2017 1:03 PM [...] for additional details. Pete Gonzalez MD RAD HI documented in this encounter Visit Diagnoses Diagnosis Screening procedure Screening for unspecified condition Pseudarthrosis after fusion or arthrodes is Arthrodesis status documented in this encounter Administered Medications Inactive Administered Medications - up to 3 most recent administrations Medication Order MAR Action Action Date Dose Rate Site barium sulfate (EZ PAQUE) Given 12/26/2017 1:06 PM LEAD CUSTODIAN 200 mL suspension 200 mL 200 mL, Oral, ONCE (NON-SCHEDULED), Starting on Tue12/26/17 at 1305, For 1 dose barium sulfate (EZ-DISK) tablet 700 mg Given 12/26/2017 1:06 PM LEAD CUSTODIAN 700 mg 700 mg, Oral, ONCE (NON-SCHEDULED), Starting on Tue12/26/17 at 1305, Until Tue12/26/17 at 1306, For 1 dose barium sulfate (EZ-PASTE) oral cream 9 g Given 12/26/2017 1:06 PM LEAD CUSTODIAN 9 g 9 g (15 mL), Oral, ONCE (NON-SCHEDULED), Starting on Tue12/26/17 at 1305, For 1 dose barium sulfate (VARIBAR, TAGITOL V) 40 % Given 12/26/2017 1:06 P M LEAD CUSTODIAN 240 mL suspension 240 mL 240 mL, Oral, ONCE (NON-SCHEDULED), Starting on Tue12/26/17 at 1305, Until Tue02/20/18 at 1710, For 3 doses documented in this encounter Care Teams Housekeeper Relationship Specialty Start Date End Date Jose Holden MD PCP - General Otolaryngology 12/14/17 [facility] [place] [address] documented as of this encounter
--- OUTSIDE RECORDS SUMMARY | 2022-09-14 11:56 | XMS_ITS | Encounter Summary ---
:1965 Author Organization [facility] Address [address], [place] [address] Care Team Providers Name Role Phone Jose Holden MD Primary Care Provider [phone] Reason for Visit Reason Comments QUESTIONS, GENERAL Encounter Details Date Type Department Care Team Description 02/03/2018 Telephone [facility] Pete Gonzalez MD QUESTIONS, GENERAL [facility]science Center [address] [facility] ALIY[facility] Neurosurgery/Ortho S [place], [place] [address] [address] [place] [address] [phone] Social History Tobacco Use Types Packs/Day Years [...] PA. Chava Simon RN 02/03/2018, 12:01 PM ING TECHNICIAN Gi De La Vega - 02/03/2018 11:55 AM CST Patient calling to speak to Jamir. Would like to know about her surgery. Supervisor Fruit Grading did let patient know that Ana Rosa operations scheduler is out of the office. She did request to speak to Jamir. Please call her at listed number. Thanks ING TECHNICIAN documented in this encounter Plan of Treatment Not on filedocumented as of this encounter Visit Diagnoses Not on filedocumented in this encounter Care Teams Meeting Specialist Relationship Specialty Start Date End Date Jose Holden MD PCP - General Otolaryngology 12/14/[address] [place], [place] [address] [address] documented as of this encounter
--- OUTSIDE RECORDS SUMMARY | 2022-09-14 11:56 | XMS_ITS | Encounter Summary ---
:1965 Author Organization [facility] Address [address] [address] Care Team Providers Name Role Phone Unassigned, Provider Primary Care Provider Unavailable Reason for Visit Procedure/Equipment (Routine) - Incomplete Specialty Diagnoses / Procedures Referred By Contact Refer red To Contact Diagnoses Screening procedure Pseudarthrosis after fusion or arthrodesis Pete Gonzalez MD Procedures XR Cervical Spine W Flex And Ext [address] [place] [address] Referral ID Status Reason Start Date Expiration Date Visits V isits Requested Authorized [id number] Incomplete 10/31/2017 01/30/2019 1 1 Encounter Details Date Type Department Care Team Description 11/29/2017 Imaging [facility]ineda MD Screening procedure Neuro[facility] [address] [facility] Radiology [place], [place] [address] [address] [place] [address] [phone] Social History Tobacco Use Types Packs/Day Years [...] dure Results for this FLEX AND EXT INVESTIGATIVE REPORTER procedure are i n the results section. documented in this encounter Results XR Cervical Spine W Flex And Ext (11/29/2017 9:54 AM INVESTIGATIVE REPORTER) Anatomical Region Laterality Modality Spine, C-Spine, Neck Computed Radiograph y Specimen (Source) Anatomical Collection Method Collection Time Re ceived Time Location / / Volume Laterality 11/29/2017 9:54 AM INVESTIGATIVE REPORTER Narrative 11/29/2017 10:59 AM INVESTIGATIVE REPORTER XR CERVICAL SPINE W FLEX AND EXT [...] condition documented in this encounter Care Teams Delineator Relationship Specialty Start Date End Date Unassigned, Provider PCP - General 08/05/03 12/13/[address] [place] [address] documented as of this encounter
--- OUTSIDE RECORDS SUMMARY | 2022-09-14 11:56 | XMS_ITS | Encounter Summary ---
:1965 Author Organization [facility] Address [address] [place] [address] Care Team Providers Name Role Phone Jose Holden MD Primary Care Provider [phone] Reason for Visit Reason Comments Other Encounter Details Date Type Department Care Team Description 01/17/2018 [facility] Chava Simon [facility] Other Center Neurosurgery/ Ortho Spine [address] [place] [address]. [place] [address] Social History Tobacco Use Types [...] AM CST XR printed for patient to vegetable picker when she comes to clinic. Chava Simon RN 01/18/2018, 8:42 AM MIXER Michael Cruz - 01/17/2018 3:46 PM CST Patient called in stating she will drop off her CD in clinic tomorrow. However she wants to make sure RADHA Bowie also has a copy of her neck pictures ready for her as well. Patient states she had alreadyspoken to RADHA Bowie about this. Please advise Michael Cruz 01/17/2018, 3:47 PM MIXER documented in this encounter Plan of Treatment Not on filedocumented as of this encounter Visit Diagnoses Not on filedocumented in this encounter Care Teams Dining Host Relationship Specialty Start Date End Date Jose Holden MD PCP - General Otolaryngology 12/14/17 [facility] [place] [address] documented as of this encounter
--- OUTSIDE RECORDS SUMMARY | 2022-09-14 11:57 | XMS_ITS | Encounter Summary ---
:[address] [facility] Address [address] [place] [address] Care Team Providers Name Role Phone Elsewhere, [...] Embolism Right Vertebral Artery (HCC) M.DBritton [address] [place], [place] [address] Referral ID Status Reason Start Date Expiration Date Visits V isits Requested Authorized [id number] Authorized 06/17/2022 06/17/2023 1 1 Physical Therapy (Routine) - Authorized Specialty Diagnoses / Procedures Referred By Contact Refer red To Contact Photonics Engineering Technician Diagnoses Weakness General Pain Back Ataxia Repeated Falls Debility Primary Osteoarthritis Shoulder Left 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 Stroke Cerebrovascular Accident Personal History Fusion Cervical Spine Status Post Maira Haynes, Fibromyalgia Chronic Pain Syndrome Cerebral 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 [address] [place] [id number] Weakness General (Primary Dx); 06/18/2022 Encounter [facility], Neftali García M.D. [address] [place] [phone] Incontinence Urinary; [facility], Saul Pollard M.D. [address] [place] [address] Pain Back; Domitilla Ataxia; Building, Third Repeated Fal ls; Floor Debility; [address] [facility] Primary Osteoarthritis Shoul marquis Left; [place], [place] Ataxia From [facility] Cerebrovascular Accident; [id number] Stroke Cerebrovascular Accid ent Personal History; [phone] Fusion Cervical Spine Status Post; Fibromyalgia; Chronic [...] more drinks on one Never 10/02/2019 occasion? Social Isolation Answer Date Recorded In a typical week, how many times do you More than three abrahan es a week 05/17/2022 talk on the phone with family, friends, or neighbors? How often do you get together with friends More than three t imes a week 05/17/2022 or relatives? How often do you attend tenriism or Patient refused 2021 worship services? Do [...] documented in this encounter Discharge Summaries Saul Plolard M.D. - 06/18/2022 10:55 AM CDT I [...] AM CDT DISCHARGE SUMMARY BRIEF OVERVIEW Hospital: [facility] Discharge Provider: Saul Pollard M.D. Primary Team: [place] [address] ([facility]) Primary Care Providers: Elsewhere, Pcp (General) No address on file Primary Care Provider Phone Number: None Primary Care Provider Fax Number: None Admission Date: 06/15/2022 Discharge Date: 06/18/2022 PRINCIPAL DIAGNOSIS Weakness General SECONDARY DIAGNOSES Principal Problem: Weakness General DISCHARGE DISPOSITION [facility] [6] ACTIVE ISSUES REQUIRING FOLLOW UP Please [...] Scheduled Appointments 06/21/2022 11:00 AM PHR PHARMACIST [address] [place] [address] Pharmacy For appointment details refer to your Patient Appointment Guide. TEST RESULTS PENDING AT DISCHARGE Pending Labs Order Current Status Basic Metabolic Panel In process DETAILS OF HOSPITAL STAY REASON FOR ADMISSION Pain Back Weakness General Incontinence Urinary Ataxia Repeated Falls HOSPITAL COURSE Ms. Mosquera is hospitalized on [place] [address] ([facility]) for evaluation and management of [...] does not want to transition to a group home facility currently. She will be stable to discharge once her MRI of the brain and spine results are back and if they are not concerning. Saul Pollard M.D. Maira Haynes M.D. - 06/17/2022 2:07 PM CDT DISCHARGE SUMMARY BRIEF OVERVIEW Hospital: [facility] Discharge Provider: Saul Pollard M.D. Primary Team: [facility] Medicine 4 ([facility]) Primary Care Providers: Elsewhere, Pcp [...] HOSPITAL COURSE Ms. Mosquera is hospitalized on [facility] Medicine 4 ([facility]) for evaluation and management of [...] AM CDT You were discharged from the [facility] Medicine 4 ([facility]) Service. Please identify this service name if you call with questions after hospitalization. Discharge Instr - Anthony Ware, PStacy., D.P.T., C.S.C.S. - 06/16/2022 1:22 PM CDT [...] needed, Assistance with walking and moving around [facility] Discharge information provided on 06/16/2022 Contact information: [facility], [address], Tessie Arora - 06/17/2022 10:50 AM CDT Take a copy of this after visit summary to your appointment(s). [facility] - Tuesday --10:00 AM - Hospital Follow-Up with Dr. Blackwell, primary care provider, at [facility] RECOMMENDATIONS: * * [facility] You may have outpatient appointments at [facility] that changed during your hospitalization. Refer to your [facility] Patient Visit Guide (PVG) for the most current schedule of appointments and detailed instructions of tests/procedures. Call [phone], if you did not receive an PVG or need to CANCEL any [facility] appointment(s). AttachmentsThe following attachments cannot be sent through Care Everywhere. Pregabalin (By mouth) (Malawian)Furosemide (By mouth) (Malawian)documented in this encounter Medications at Time of [...] THC multivit-min/iron/folic/ Take 1 tablet by 0 ckg860 (HAIR, SKIN AND mouth daily. NAILS ADVANCED [...] Inpatient Treatment SUBJECTIVE Patient's Name: Angie Mosquera Referring/Attending Provider: [...] Discussed patient's care with PT Outcome Measures [facility] Inpatient Short Form: Putting on [...] Standardized Score: 44.27 Interpretation: Clinicians answer the [facility] [...] showering/bathing, Assistance with meal preparation, Assistance with manager financial services, Assistance with shopping, Assistance with housekeeping, Assistance [...] Melton M.D. - 06/17/2022 8:00 PM CDT [facility] 4 ([facility]) PROGRESS NOTE SUBJECTIVE No acute [...] / PLAN Ms. Mosquera is hospitalized on [facility] Medicine 4 ([facility]) for evaluation and management of [...] #Hyperlipidemia -Continue atorvastatin 80 mg daily Radha Miller P.T. - 06/17/2022 12:57 PM CDT Physical [...] Right Lives With: Alone Receives Help From: mill attendant, Family, Friend(s) (Son lives in apt next to her.) ADL Assistance: Required assistance ADL Assistance Comments: Gets help from COCKTAIL LOUNGE MANAGER for her bath/shower 3x/week, and for her meals, RN once every 2 weeks. IADL/Homemaking Assistance: Required assistance IADL/Homemaking Assistance Comments: Gets help for housecleaning Driving: Does not drive Driving Comments: Friend assists Occupational Role: On disability Occupational Role Comments: Previously worked at a [employer] and [employer] Prior Mobility/Functional Transfers Level of Townsend: Needs assistance Gait Devices/Wheelchair Used Comments: No AD [facility] Home Equipment Home Adaptive Equipment: [...] Additional Staff Present During Session: RN and transporter radiology Outcome Measures [facility] Inpatient Short Form: [facility] Basic Mobility (V.2) How much [...] 3-5 steps with a railing?: A Lot [facility] Basic Mobility (V.2) Raw Score: 21 [facility] Basic Mobility (V.2) Standardized Score: 45.55 Interpretation: Clinicians answer the [facility] [...] patient wasunsure of a few. Consider outpatient [facility] pharmacy review Changes to medications anticipated at discharge:pending hospital course Marlene Wu Pharm.D., R.Ph. [phone] Marlene Wu, Dillon., R.Ph. - 06/16/2022 1:14 PM CDT Images from the original note were not included. Admission Medication History Note Medication list source: Patient + [facility] refill history (patient gets her scheduled [...] Status: Pharmacy Complete Set By: Marlene Wu, PharmOj., R.Ph. at 06/16/2022 12:56 PM Status Comment [...] Take 150 mg by mouth every morning. vkfelxubcu-hskrkvsdlpbpt-qsky (ESGIC) 50-325-40 mg per tablet Past Month [...] 1 spray as needed. 5 mg THC multivit-min/iron/folic/mnt581 (HAIR, SKIN AND NAILS ADVANCED ORAL) Past [...] (confirmed by [employer] rep Chon Cornelius). Per Ms. Mosquera, she lost her sr community manager months ago so has not been able to charge the device. Device was interrogated, however, it was unable to connect to the peoplesoft programmer, likely due to the battery being depleted per patient report. locate technician Mandy in room during interrogation and aware that device is off. Carley Mendez M.D. PGY-3, Anesthesiology and Perioperative Medicine documented in this encounter H&P Notes Renetta Michael M.D., M.S. - 06/15/2022 11:41 PM CDT Images from the original note were not included. [facility] 4 ([facility]) - ADMISSION NOTE Hospital Day [...] but left AMA. She presented to the [facility] ED 06/15. In the ED, she was [...] Urinalysis Case will be staffed with supervising quality assurance consultant within 24 hours. Please page the [facility] Medicine 4 ([facility]) service pager at [phone] with questions or concerns. Renetta Michael M.D., M.S. PGY-3 [phone] Department of Internal Medicine Kiran Melton M.D. - 06/15/2022 12:05 AM CDT [facility] Medicine 4 ([facility]) Admission Note SUBJECTIVE CHIEF COMPLAINT [...] overflow incontinence. She was seen in the [place] ER a few days ago where they obtained a CT head without evidence for new infarct. She left against medical advice and came to [facility] for re-evaluation. Upon arrival to the ED, [...] Take 150 mg by mouth every morning. vblrktgfvs-wrpqtmolaqbdq-ffqb (ESGIC) 50-325-40 mg per tablet, Take 1 [...] 1 spray as needed. 5 mg THC multivit-min/iron/folic/jrz517 (HAIR, SKIN AND NAILS ADVANCED ORAL), Take [...] / PLAN Ms. Mosquera is hospitalized on [place] [address] ([facility]) for evaluation and management of [...] or life-threatening deterioration of the following conditions: ASSOCIATE LOAN OFFICER failure or compromise Critical care was time [...] Grab Bars Support from family [facility] OBJECTIVE Central Sterile Technician met with patient to discuss final discharge plans. Patient is agreeable to restart her home health nursing and FASHION MODEL along with PT. Patient will have her friend transport her home today. ASSESSMENT / PLAN Assessment The patient appear to have insight into the patient's needs at this time and are planning appropriately for discharge needs. They report agreement with the below plan with no further questions at this time. Plan [facility] Georgette RN: [phone] Home health requesting an AVS discharge summary [...] if needs arise. Cris Landin R.N. 06/18/2022 Ihrdawson, Claire Brumfield O.T., [facility] - 06/17/2022 9:53 AM CDT Occupational [...] (Dependence) Uncomplicated (HCC) Nicotine Dependence Unspecified Other Mcfp Current Drug Therapy Direct Infection Of Left [...] Right Lives With: Alone Receives Help From: mill attendant, Family, Friend(s) (Son lives in apt next to her.) ADL Assistance: Required assistance ADL Assistance Comments: Gets help from COCKTAIL LOUNGE MANAGER for her bath/shower 3x/week, and for her meals, RN once every 2 weeks. IADL/Homemaking Assistance: Required assistance IADL/Homemaking Assistance Comments: Gets help for housecleaning Driving: Does not drive Driving Comments: Friend assists Occupational Role: On disability Occupational Role Comments: Previously worked at a [employer] and [employer] Prior Mobility/Functional Transfers Level of Townsend: Needs assistance Previous Transfer/Mobility Assistance Comments: Patient reports she asks for help often from her sonas he just lives next door. Gait Devices/Wheelchair Used Comments: No AD [facility]. Home Living Type of Home: Apartment Home [...] quite lethargic, yet impulsive required assistance to [facility] gown and shoulder immobilizer to maximize [...] and patient's status was discussed Outcome Measures [facility] Inpatient Short Form: Putting on [...] Standardized Score: 32.03 Interpretation: Clinicians answer the AM-PAC Inpatient Short [...] dressing, Assistance with meal preparation, Assistance with manager financial services, Assistance with shopping, Assistance with housekeeping, Assistance [...] Planning Assessment SUBJECTIVE Assessment Information Referral Source: scuba diver Referral Reason: Discharge Planning Primary Language: Malawian Low Pressure Boiler Operator Services Used: No Person(s) present during [...] Pleasant, Calm Communication: Talks, Understands speaking, Understands Malawian Shopping: Needs assistance Transportation: Support from family Medication Management: Independent Housekeeping: Dependent Meal Prep: Needs assistance Managing Finances: Needs assistance Assistive Devices: Cane, Tub/shower chair/bench Services/Resources: Home health Agency Name: Home health reconnect Services Provided: group home twice monthly, [employer] 3 times a week Baseline Services/Resources Primary care clinic and provider: ELSEWHERE, PCP Services/Resources: Home health Additional Resources: none Anticipated Needs Functional Status: Bathing, Dressing, Grooming/hygeine, Meal preparation, Medication set-up/administration, Housekeeping, Shopping, Transportation use (drive car, use taxi/bus) Assistive Devices: Tub/shower chair/bench, Grab bars - toilet, Grab bars - wall Services/Resources: Home health Agency Name: Home health reconnect Services Provided: group home twice monthly, FASHION MODEL 3 times a week Anticipated Modifications to the Patient's Home: Grab Bars Transportation Needs: Support from family Does the patient need discharge transport arranged?: No Phone Number for Ride/Caregiver: son or daughter Anticipated Discharge Destination: [facility] ASSESSMENT / PLAN Assessment: The scuba diver met with Angie Mosquera to discuss her current hospitalization and home goingneeds. The patient was unaccompanied. The patient was a reliable historian. The role of scuba diver was reviewed. The patient reviewed her prior level of care and support system. The patient receives support from her daughter, son, and home care staff . The patient described her living environment as a apartment with elevator access with level entry. Housekeeping, grocery shopping, meal prep, and other household responsibilities have previously been completed by patient and patient's son. scuba diver discussed the patient's potential needs at [facility] based on their home setting, [...] ADL's. She currently has home health through [facility] for group home twice monthly and [facility] 3 times a week for 1 [...] following as their current vendor(s): [facility]. After reviewing the patient's chart and meeting with the patient, the scuba diver deemed the LACE+/readmission questions were appropriate. The [...] readmission could not have been prevented. The scuba diver will share this information with the care team. The patient reports understanding that she will dismiss from the hospital when medically stable. Pending hospital course and medical readiness, no barriers to dismissal have been identified at this time. Plan: The patient agrees with the following plan. Patient's anticipated discharge disposition is: Home with Home Healthcare Reconnected: [facility] Transportation upon dismissal will be provided by family--son or daughter . scuba diver recommended a shower seat, grab bars, home delivery of groceries, and reaching out to family, friends, and neighbors for assistance. scuba diver provided information regarding the dismissal process and the Advance Health Care Planning: Making Your Wishes Known [id number] booklet along with education on the benefits of completing an advance directive and resources that may assist them in this process. The patient sharedno further questions or concerns regarding advance directives. The patient appears to have an understanding of how to complete an advance directive and reported awareness of resources to assist them. scuba diver placed or requested the following hospital-based consult orders and/or referrals: PT/OT. scuba diver will continue to assess for homegoing needs with the interdisciplinary team. scuba diver encouraged the patient to reach out with any questions/concerns. Patient to discharge with home health care. [facility] Georgette RN: [phone] Home health requesting an AVS discharge summary [...] Cris Landin R.N. 06/16/2022 Nikki Cook APRN C.N.Hema, M.S. - 06/16/2022 11:01 AM CDTAssociated Order(s): [...] Prescriptions are provided by pain management through [facility] and her PCP Dr. [...] lumbosacral radicular pain, last reportedly revised at [facility] in 2019. The initial [...] Acetaminophen 1 g four times a day Ovdcukdwhwgsv-lcpxgwxj-mzclxhkur-Lipoderm cream twice a day Diclofenac 1% gel [...] mg by mouth every morning. Past Week scitcsebht-pkdumnwsoxehk-kysg (ESGIC) 50-325-40 mg per tablet Take 1 [...] as needed. 5 mg THC Past Week multivit-min/iron/folic/kne973 (HAIR, SKIN AND NAILS ADVANCED ORAL) Take [...] Daily Given, 1,000 mg at 06/16 1345 nwlnzfhmvghhl-myrgiubg-aheayfdyb in Lipoderm 2%-0.5%-2% cream 1 g 1 [...] PRN Given, 100 mg at 06/16 921 tnvyhngzmn-zyvjodyqxvmhl-xhmx 50-325-40 mg per tablet 1 tablet (ESGIC) [...] Q4H PRN Given, 10 mg at 06/16 134 polyethylene glycol powder packet 17 g (MIRALAX) [...] 8 8 5 - Moderate pain 06/15/228 06/15/22 2208 06/16/22 0030 06/16/2233 Pain Score: 8 3 10 - Worst [...] Pain Type: Acute pain (06/15/221849 : Marixa Steven M.S.N., R.N.) Pain Location: Shoulder (06/16/22532 : Tiffanie Mills RBrittonN.) Pain Orientation: Left (06/16/22532 : Tiffanie Mills R.N.) Response to Interventions: Asleep (06/16/22 0357 : Tiffanie Mills RBrittonN.) Resp Rate: 18 (06/16/22 0921 : Gini Newberry RBrittonN.) Respiratory Depth/Rhythm: Regular (06/15/228 : Asia Cortez R.N., [facility]) PAIN PHYSICAL EXAM GENERAL: Pleasant, 57 y.o. [...] longitudinally with an outpatient pain provider at [facility]. Though she is on several ASSOCIATE LOAN OFFICER acting medications that could increase the risk [...] organic cause for symptoms - work with [employer] to get her SCS therapy active in the outpatient setting Discussed with Pain Pipe Stripper Dr. Kaushik Gustafson. Thank you for allowing the Inpatient Pain Service to be a part of Angie Mosquera's care. The [facility] Inpatient Pain Service will sign off. Please page [phone] with questions. Anthony Shepard P.T., Adrián, C.S.C.S. - 06/16/2022 10:10 AM CDT Physical [...] (Dependence) Uncomplicated (HCC) Nicotine Dependence Unspecified Other Mcfp Current Drug Therapy Direct Infection Of Left Shoulder In Infectious And Parasitic Diseases Classified Elsewhere (HCC) Pain Shoulder Left Anemia Primary Osteoarthritis Shoulder Left Weakness General Past Surgical History: Procedure Laterality Date ABDOMINOPLASTY ARTHROPLASTY - RESECTION SHOULDER Left 12/30/2021 Procedure: ARTHROPLASTY RESECTION SHOULDER.; Surgeon: Cyrus Polk M.D.; Location: [facility]I OR ARTHROPLASTY REPLACEMENT TOTAL SHOULDER Left [...] Right Lives With: Alone Receives Help From: mill attendant, Family, Friend(s) (Son lives in apt next to her.) ADL Assistance: Required assistance ADL Assistance Comments: Gets help from COCKTAIL LOUNGE MANAGER for her bath/shower 3x/week, and for her meals, RN once every 2 weeks. IADL/Homemaking Assistance: Required assistance IADL/Homemaking Assistance Comments: Gets help for housecleaning Driving: Does not drive Driving Comments: Friend assists Occupational Role: On disability Occupational Role Comments: Previously worked at a [employer] and [employer] Prior Mobility/Functional Transfers Level of Townsend: Needs assistance Gait Devices/Wheelchair Used Comments: No AD [facility]. Home Equipment Home Adaptive Equipment: [...] surgicalmask, eye protection, and gloves Outcome Measures [facility] Inpatient Short Form: -[facility] Basic Mobility (V.2) How much help [...] 3-5 steps with a railing?: A Lot AM-[facility] Basic Mobility (V.2) Raw Score: 20 AM-[facility] Basic Mobility (V.2) Standardized Score: 43.99 Interpretation: Clinicians answer the -[facility] Inpatient Short Form based on observed [...] independent with ADLs but does have a COCKTAIL LOUNGE MANAGER 3 times per week to assist with [...] is currently below her functional baseline, declining group home facility but agreeable to home health PT [...] Time (min): 27 min Anthony Shepard P.T., NeriP.Jaqueline, C.S.C.S. Leonides Kumar M.D. - 06/15/2022 6:05 [...] states that over the last 6 w eeks she has had an increasing number of [...] She now presented to the ED at [facility] for a second opinion. Review of [...] (WELLBUTRIN XL) 150 mg, oral, Every morning rounfmnygw-mbwkbbwhsleov-sjbw (ESGIC) 50-325-40 mg per tablet 1 tablet, [...] 1 spray as needed. 5 mg THC multivit-min/iron/folic/oxz556 (HAIR, SKIN AND NAILS ADVANCED ORAL) 1 [...] PM CDT Care of [place] by Scooter Tony. Disposition pending MRI with [...] have chronic pain and she lost the sr community manager for her [employer] SCS device several months ago. An MRI [...] Falls Neftali Garcia M.D. 07/02/22 1331 Scooter Tony APRN C.N.P. - 06/15/2022 2:48 PM CDT SUBJECTIVE [...] relieve her symptoms she was seen in [place] ER few days ago and had no [...] over the past weeks was recently evaluated [facility] which she had a CT of her [...] as of 06/16/22 0848 TueJun 15, 2022 5569 Given patient's history exam I do have concern for possible underlying cauda equina given her recent falls increased back pain some lower leg weakness this could be secondary to other injury thus difficult to assess and urinary incontinence. Will page Neurology have them evaluate further. 8158 Patient continues to be a poor historian [...] medicine. 2025 Patient will go back to [facility] awaiting a MRI and then disposition. 2025 [...] is a the provider I spoke with.Pager #[phone] Final Diagnoses: as of 06/16/22 0848 Weakness [...] a recent fall. Pt was seen in [place] yesterday. Ct scan performed. Pt is here for a second opinion. Elaine Winn R.N. 06/15/22 1108 documented in this encounter Miscellaneous Notes Hospital Course - Maira Haynes M.D. - 06/16/2022 7:30 AM CDT Ms. 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) [facility] Home Outpatient Referral Routine Weakness Gen eral [...] CBC without Differential (06/18/2022 7:50 AM CDT) Patholo gist Method Time Signature Hemoglobin 11.2 (L) [...] Number [facility] - [address] [place], [place] [address] [facility] [place] [address] [facility] [address] [facility] Basic Metabolic Panel (06/18/2022 7:50 AM CDT) [...] 06/18/2022 DTL Black/ mL/min/BSA 8:56 AM CDT British Comment: ----ADDITIONAL INFORMATION---- Estimated [...] [facility] - [address] [place], [place] [address] [facility] [place] [address] [facility] [address] MR Thoracic Spine without IV Contrast (06/17/2022 [...] 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 The ak chin intraocular lenses are absent . 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 The ak chin intraocular lenses are absent . 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 The ak chin intraocular lenses are absent . 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 The ak chin intraocular lenses are absent . Mild mucosal [...] L1-2 through L3-4. Scooter Tony APRN, C.N.P. 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 The ak chin intraocular lenses are absent . 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 The ak chin intraocular lenses are absent . Mild mucosal [...] CBC without Differential (06/17/2022 8:00 AM CDT) [facility] [...] Number [facility] - [address] [place], [place] [address] [facility] [place] [address] [facility] [address] [facility] Basic Metabolic Panel (06/17/2022 8:00 [...] 06/17/2022 DTL Black/ mL/min/BSA 9:34 AM CDT British Comment: ----ADDITIONAL INFORMATION---- Estimated [...] Number [facility] - [address] [place], [place] [address] [place] [address] (ABNORMAL) Dipstick, Urine (06/16/2022 9:32 AM [...] M.D. LAB URINE ORDERABLES Performing Organization Address City/[facility]/ZIP Code Phon e Number [facility] - [address] [place], [place] [address] [place] [address] [place] [address] Osmolality, Urine (06/16/2022 9:32 AM CDT) P athologist Signature Osmolality, U 745 150 - 1150 06/16/2022 DTL mOsm/kg 11:17 AM CDT Specimen Anatomical Collection Method Collection Time Receive d Time (Source) Location / / Volume Laterality Urine 06/16/2022 9:32 AM 2 CDT 10:39 AM CDT Maira Haynes M.D. LAB URINE ORDERABLES Performing Organization Address City/[facility]/ZIP Code Phon e Number [facility] - [address] [place], [place] [address] [place] [address] pH, Random, Urine (06/16/2022 9:32 AM CDT) P athologist Signature pH, Random, U 5.0 4.5 - 8.0 06/16/2022 DTL 11:17 AM CDT Specimen Anatomical Collection Method Collection Time Receive d Time (Source) Location / / Volume Laterality Urine 06/16/2022 9:32 AM 2 CDT 10:39 AM CDT Maira Haynes M.D. LAB URINE ORDERABLES Performing Organization Address City/[facility] Phon e Number [facility] - [address] (ABNORMAL) Microscopic Manual (06/16/2022 9:32 AM [...] M.D. LAB URINE ORDERABLES Performing Organization Address City/[facility] Phon e Number [facility] - [address] (ABNORMAL) Urinalysis with Microscopic: Urine, Catheter [...] M.D. LAB URINE ORDERABLES Performing Organization Address City/[facility] Phon e Number [facility] - [address] [place] [address] [facility] [place] [address] [facility] 200 [facility] Vitamin B12 Assay [...] Number [facility] - [address] [place], [place] [address] [facility] [place] [place] [address] [facility]-[address] Hemoglobin A1c (06/16/2022 7:31 AM CDT) [...] City/State/ZIP Code Phon e Number [facility] - [address] [place], [place] [address] [place] [address] (ABNORMAL) CBC without Differential (06/16/2022 7:31 [...] Number [facility] - [address] [place], [place] [address] [facility] [place] [address] [facility] [address] [facility] (ABNORMAL) Comprehensive Metabolic Panel (06/16/2022 7:31 AM [...] 06/16/2022 DTL Black/ mL/min/BSA 8:22 AM CDT British Comment: ----ADDITIONAL INFORMATION---- Estimated [...] e Number [facility] - [address] [place] [address] [facility] [place] [address] [facility] 200 [facility] Critical Care (06/15/2022 [...] life-threatening deterioration of the fo llowing conditions: ASSOCIATE LOAN OFFICER failure or compromise Critical care was time spent personally by me on the following activities: ordering and review of radiographic stud ies, ordering and review of laboratory studies, discussions with [place] provider, discussions with consultants, examination of patient, rev iew of old charts and re-evaluation of patient's condition Scooter P Tony SERVER CASHIER, C.N.P. PROCEDURE/MINOR SURGICA L ORDERABLES SARS Coronavirus 2, PCR Rapid, V Symptomatic (06/15/2022 7:51 PM CDT) [facility] Method Time Signature SARS CoV-2, Undetected Undetected 06/15/2022 [facility] PCR, Rapid, V 8:23 PM CDT Comment: ----ADDITIONAL INFORMATION---- This RT-PCR test was performed using the [employer]ita SARS-CoV-2 and Influenza A/B Reagent assay from [employer], which has received Emergency Use Authori zation(EUA) by the U.S. Food and Drug Administration . Fact sheets for this Emergency Use Autho rization (EUA) assay can be found at the following link s: For Healthcare Providers: https://www.fda.gov/media/224754/downloa d For Patients: https://www.fda.gov/media/870268/downloa d SARS Coronavirus 2, Source, Rapid Swab, Nasopharynx 06/15/2022 7:58 PM CDT [facility] Spec[facility] Anatomical Collection Method Collection Time Receive d Time (Source) Location / / Volume Laterality Varies 06/15/2022 7:51 PM 7:58 (Nasopharynx) CDT PM CDT Scooter Tony APRN, C.N.P. LAB MICROBIOLOGY - GENE RAL ORDERABLES Performing Organization Address City/State/ZIP Code Phon e Number [facility] - [address] [place] [address] [place] [address] Laboratories-[address] Head Neck Angiogram with IV [...] 2H/6H, 5th Gen (06/15/2022 2:48 PM CDT) [facility] Method Time Signature Troponin T, 2 <6 <=10 ng/L 06/15/2022 [facility] hr, 5th gen 3:54 PM CDT 2H Delta 0 ng/L 06/15/2022 [facility] 3:54 PM CDT 2H Delta Not Changing 06/15/2022 [facility] Interp 3:54 PM CDT Troponin T, 6 CANCELED ng/L 06/15/2022 [facility] hr, 5th gen 3:54 PM CDT Comment: Result canceled by the ancillar y. Specimen Anatomical Collection Method Collection Time Receive d Time (Source) Location / / Volume Laterality Blood (Blood, 06/15/2022 2:48 PM 06/15/20 3:21 Venous) CDT PM CDT Narrative [facility] - [facility] - 06/15/2022 3:54 PM CDT Specimen Information: Specimen ID: [id number] Specimen Type: Blood Specimen Collection Start Date: 06/15/20 ??2:48 PM Specimen Received Date: 06/15/2022 ??3:2 1 PM Specimen ID: [id number] Specimen Type: Blood Specimen Collection Start Date: 06/15/20 ??3:53 PM Specimen Received Date: 06/15/2022 ??3:5 3 PM Demarcus Ernst M.D. LAB BLOOD TROPONIN Performing Organization Address City/State/ZIP Code Phon e Number [address] [address] [place] [address] [facility]-[address] DX Hip And Pelvis Left 2-3 [...] Signature Ventricular Rate 58 BPM MUSE ECG/Min [place] Interval 154 ms MUSE QRSD Interval 102 ms MUSE QT Interval 442 ms MUSE QTC Interval 433 ms MUSE P [place] 48 degrees MUSE R [place] -1 degrees MUSE T Wave [place] 38 degrees MUSE Specimen Anatomical Collection Method [...] M.D. LAB BLOOD TROPONIN Performing Organization Address City/[facility] Phon e Number [facility] - [address]MA [address] (ABNORMAL) Hepatic Function Panel (06/15/2022 12:37 [...] BLOOD ADD-ON Performing Organization Address City/[facility]/ZIP [facility] Phon e Number [facility] - [address] [place] [address] [facility] [place] [address] Basic Metabolic Panel (06/15/2022 12:36 PM CDT) [...] CDT eGFR-Black/Afric >90 >=60 06/15/2022 [facility] an British mL/min/BSA 1:34 PM CDT Comment: ----ADDITIONAL INFORMATION---- [...] Number [facility] - [address] [place], [place] [address] [facility] [place] [address] [facility] 200 [facility] (ABNORMAL) CBC with Differential, Blood (06/15/2022 12:36 PM CDT) [facility] Method Time Signature Hemoglobin 10.4 (L) [...] [facility] - [address] [place], [place] [address] [place] [address] [facility] [address] [place] [address] [facility] [address] Prothrombin Time (PT) (06/15/2022 12:34 PM CDT) P athologist Signature Prothrombin 10.2 9.4 - 12.5 06/15/2022 [facility] Time, P sec 1:10 PM CDT INR 0.9 0.9 - 1.1 06/15/2022 [facility] 1:10 PM CDT Comment: ----ADDITIONAL INFORMATION---- [...] [facility] - [address] [place], [place] [address] [place] [address] [facility] [address] Interpretation of Outside CT [...] Modality Head, Neuroradiology RST LOS, Neuroradiology ARZ [facility], N/A Computed Tomography Neuroradiology FLA [...] Visit Diagnoses Diagnosis Weakness General - Primary Weakness General Incontinence Urinary Pain Back Ataxia [...] Given 06/17/2022 9:20 AM CDT 1,000 mg vrqorwakgougq-gbmlyndv-kihfdxauo in Lipoderm Given 06/18/2022 10 :23 AM [...] Given 06/16/2022 9:16 AM CDT 150 mg modluubkke-mikxjhdqtxfda-mtlw 50-325-40 mg Given 06/17 6:03 PM CDT [...] available) 1019 (Given - Provider: Raquel Guajardo R.N.) 1,000 mg, oral, 4 times daily, First dos e on Tue06/16/22 at 0800, Not to exceed 4 grams of acetaminophen in 24 hours all sources 2057 (Given - Provider: Erwin Tello RBetsy) vprsjywuilmjf-mmxsyibo-pkxsjkcls in Lipoderm 2%-0.5%-2 % cream 1 g 1344 (Given - Provider: Gini Newberry R.N.)2110 (Given - Provider: Rufina Husain R.N.) 0920 (Given - Provider: Gini Newberry R.N.)210 (Given - Provider: Erwin Tello R.N.) 1023 [...] R.N.) 920 (Given - Provider: Gini Newberry R.N.)2101 (Given - Provider: Erwin Tello R.N.) 1025 [...] 1024 (Not Given - Provider: Raquel arguelles RBrittonNBritton - Reason: Patient/family refused) 2 g, topical, [...] 920 (Given - Provider: Gini Newberry R.N.) 09 (Given - Provider: Gini Newberry R.N.) 1024 [...] 0900 HYDROmorphone tablet 2 mg (DILAUDID) (COMPLETED) 025 (Given - Provider: Tiffanie Mills R.NBritton) 2 mg, oral, Once, On Tue06/16/22 at 0230, For 1 dose lamoTRIgine tablet 200 mg (LaMICtaL) 920 (Given - Pro vider: Giin Newberry R.N.)2108 (Given - Provider: Rufina Husain R.N.) 918 (Given - Provider: Gini Newberry R.N.)2057 (Given - Provider: Erwin Tello RBrittonMilad) 101 (Given - Provider: Raquel Guajardo R.N.) 200 [...] 1018 (Given - Provider: Raquel Guajardo R.N.) 300 [...] sodium chloride 0.9 % injection 3 mL 09 (Given - Pro vider: Gini Newberry R.N.)225 (Given - Provider: Laquita Calero R.N.) 09 (Given - Provider: Gini Newberry R.N.)2058 (Given [...] R.N.) 0920 (Given - Provider: Gini Newberry R.N.)2058 (Given - Provider: Erwin Tello R.N.) 1019 [...] R.N.) 0339 (Given - Provider: Laquita rosa RBrittonNBritton)0920 (Given - Provider: Gini Newberry R.N.)2204 (Given - Provider: Erwin Tello RBrittonNBritton) 0515 (Given - Provider: Erwin gimenez R.NBritton) 100 mg, oral, 3 times daily PRN, cough, Starting on Tue06/16/22 at 0107, Swallow whole. Do NOT crush, chew or open capsule. wwfjjriome-zjnjszfqiukjt-mthe 50-325-40 mg per tablet 1 tablet (ESGIC) 1359 (Given - Provider: Gini Newberry R.N.)2108 (Given - Provider: Sharifa TaylorNBritton) 1038 (Given - Provider: Kennedi Cabrera APRN, ASSOCIATE LOAN OFFICER, M.S.N.)1803 (Given - Provider: Gini Newberry R.N.) 1 tablet, oral, Every 6 hours PRN, migraine, Starting on 05/29 at 0107 diphenhydrAMINE-zinc acetate 1 % cream 1 application ( BENADRYL) 1431 (Given - Provider: Gini Newberry R.N.) 1 application, topical, 4 times daily [place] N, itching, Starting on Tue06/16/22 at 0306 [...] ODT disintegrating tablet 8 mg (ZOFRAN-ODT ) 2208 (Not Given - Provider: Laquita Calero R.N. [...] R.N.) 0006 (Given - Provider: Laquita Calero RRebekah.)0919 (Given - Provider: Christiano Moon.N.)1803 (Given - Provider: Gini Newberry R.N.)2204 (Given - Provider: Erwin Tello R.N.) 0515 (Given - Provider: Erwin gimenez RBetsy)1024 (Given - Provider: Raquel Guajardo RBrittonNBritton) 10 [...] COMPLETED) 1642 (Given - Provider: Sapphire Verma, SERVER CASHIER, CREDENTIALER, DNAP) 1 patch, transdermal, Administer over 72 [...] documented as of this encounter Care Teams Customs Brokerage Agent Relationship Specialty Start Date End Date Elsewhere, Pcp PCP - General Family Medicine 12/25/21 documented as of this encounter
--- OUTSIDE RECORDS SUMMARY | 2022-09-14 11:57 | XMS_ITS | Encounter Summary ---
:1965 Author Organization [facility] Address [address] [place] [address] Care Team Providers Name Role Phone Elsewhere, [...] Expiration Date Visits V isits Requested Authorized [id number] Authorized 06/23/2022 06/23/2023 99 99 Encounter Details Date Type Department Care Team Description 06/29/2022 Comprehensive Visit Department of Physical Juaquin Broderick M.D. Procedure And Treatment Not Carried Out Due To Patient Leaving Prior To Being Seen By Health Care Provider (Primary Dx); Medicine and Jessie Faye M.S., O.T. [address] [place] [id number] Aftercare Total Shoulder Arthroplasty Rehabilitation in [place], [place] [address] [place] [address] Social History Tobacco Use Types Packs/Day Years [...] you attend shinto or Patient refused 2021 episcopal services? Do [...] X-ray and Dr. Polk. Patient arrived at [place] [address] desk and was rescheduled. documented in this [...] documented as of this encounter Care Teams Basket Hand Weaver Relationship Specialty Start Date End Date Elsewhere, Pcp PCP - General Family Medicine 12/25/21 documented as of this encounter
--- OUTSIDE RECORDS SUMMARY | 2022-09-14 11:57 | XMS_ITS | Encounter Summary ---
:1965 Author Organization [facility] Address [address] [place] [address] Care Team Providers Name Role Phone Elsewhere, Pcp Primary Care Provider Unavailable Reason for Visit Reason Comments Med Refill Encounter Details Date Type Department Care Team Description 07/19/2022 Refill Division of [facility] Internal H Hoda parmar M.D. Med Refill Medicine, [facility], [place] [address] [place] [address] [place], [place] [address] [phone] Social History Tobacco Use Types Packs/Day Years [...] you attend adventism or Patient refused 2021 christianity services? Do [...] documented as of this encounter Care Teams Picture Frames Inspector Relationship Specialty Start Date End Date Elsewhere, Pcp PCP - General Family Medicine 12/25/21 documented as of this encounter
--- OUTSIDE RECORDS SUMMARY | 2022-09-14 11:57 | XMS_ITS | Encounter Summary ---
:1965 Author Organization [facility] Address [address] [place] [address] Care Team Providers Name Role Phone Elsewhere, Pcp Primary Care Provider Unavailable Encounter Details Date Type Department Care Team Description 09/06/2022 Documentation Department of Orthopedic Cyrus Polk, [facility] [place] [address] [place] [address] 200 [place] [phone] (Wo rk) Social History Tobacco Use Types [...] you attend pentecostal or Patient refused 2021 synagogue services? Do [...] Cyrus Polk M.D. CT CT Job ID: [id number] documented in this encounter Plan of Treatment Not on filedocumented as of this encounter Visit Diagnoses Not on filedocumented in this encounter Additional Health Concerns Assessment Noted Time PHQ-9 Depression Total Score: 16 02/11/2021 12:00 AM C DT documented as of this encounter Care Teams Program Planner Relationship Specialty Start Date End Date Elsewhere, Pcp PCP - General Family Medicine 12/25/21 documented as of this encounter
--- OUTSIDE RECORDS SUMMARY | 2022-09-14 11:57 | XMS_ITS | Clinical Summary ---
:1965 Author Organization [facility] Address [address] [place] [address] Care Team Providers Name Role Phone Elsewhere, Pcp Primary Care Provider Unavailable Source Comments Patient records contain information from all sites at [facility]. For routine questions regarding patient records, call [phone] during business hours, M-F 8:00 AM - 5:00 PM Central Time. Record requests for emergency care only can be directed to [phone] at any time.[facility] Allergies Active Allergy Reactions Severity [...] 10/13/2017 Other lashaun ction(s): (see comments) Contact Curtiss titis Gabapentin Other (see comments) Low 05/12/2017 [...] Patient taking differently: 80 mg oral Daily, Reported on 06/21/2022 [id number]-bbfcrdbondllk-wsrf Take 1 tablet by 0 12/2020 Active [...] by 0 01/28 Active mouth at bedtime. multivit-min/iron/folic/hej834 Take 1 tablet by 0 Active (HAIR, [...] Added automatically from request for lonnie li [id number] Nicotine Dependence Unspecified 11/29/2017 Other Fdc Current Drug Therapy 12/30/2016 Opioid Moderate Or [...] Intake Communication Scheduling 08/09/2022 Clinical Orthopedic Surgery Cyurs Polk Return Visit Veroniac Suoza M.D. 07/19/2022 Refill Community Internal Hoda Benito [...] Communication Lilian Souza 06/22/2022 Clinical Acute Care Gloriaaddy, Pregabalin Communication Lilian Hughes prescription 06/21/2022 Clinical Acute Care Latrice, Medication Ques tion Communication Lilian Hughes 06/17/2022 Anesthesia Event Radiology Sapphire Verma, STOCK ROOM MANAGER, STEELWORKER, DNAP Brian Hunt M.D. 06/17/2022 Orders Only [...] (ICD-10-CM)] 06/15/2022 Clinical Neurology Robert Diehl Followup ([facility] Communication Lilian Celaya Patient/) from Last 3 Months Immunizations Name Administration [...] you attend orthodoxy or Patient refused 2021 spiritism services? Do [...] years) 2028 08/31/2019, , (3 - PPSV23 if available, else 01/01/2013 PCV20) Lung Cancer Screening Discontinued 07/23/2016 Zoster Vaccines Completed 09/11/2021, 09/13/2020 Medical Devices Implanted Type Area Senior Chemist Device Shelf Model / Identifier Expiration Serial / Date Lot Cmnt Bn Smp 20gm - [id number] Bone Cement Left: [id number] [id number] / Implanted: Qty: 1 on 12/30/2021 by Cyrus Panchal M.D. at [facility] Shoulder / Grft Dbm Grf Obl Ld 15 - [id number] - [id number] Bone or Tis lebron Left: Medtronic 10/14/2023 [id number] / Implanted: Qty: 1 on 02/26/2022 at [facility] Shoulder [id number] / 4mm Amplatz Micro Plug Embolization Brain Amplatzer [id number] / Implanted: Qty: 1 on 02/16/2021 by Mustapha Posey M.D. at [facility] Coil Assurance Officer / Dayo [id number] Description: MRI Conditional at 1.5T or 3T Max Whole Body YUSEF of 4 W/kg. AAC 2020 [email or web address]/products/ Hardware E.G. Hardware e.g. Neck Pins/Screws/Rods pins/screws/rods Scrw Cmp Pthrd 6.5x25 - [id number] Hardware e.g. Left: Trevor B iomet 12/29 [id number] / Implanted: Qty: 1 on 02/26/2022 at [facility] pins/screws/rods Shoulder 05/17 [id number] Knee Implant Knee Implant Bilateral: Knee Plg Ocl Amp Avpii 6 - [id number] Mesh or Patch Pedersen 07/31 [id number] / Implanted: Qty: 1 on 02/16/2021 by Mustapha Posey M.D. at [facility] [id number] Shoulder Implant Shoulder Implant Left: Shoulder Bsplt Glnd Cmp Rv Aug Sm - [id number] Shoulder Implant Left: Trevor Biomet 01/26 [id number] / Implanted: Qty: 1 on 02/26/2022 at [facility] Shoulder [id number] [facility] Cmp Rvrs Prim Mini 9 - [id number] Shoulder Implant Le ft: Trevor Biomet 08/28 [id number] / Implanted: Qty: 1 on 05/18/2022 by Cyrus Panchal M.D. at [facility] Shoulder 02/14 [id number] Medtronic Spinal Cord Stimulator Spinal Cord Back Medtronic [id number] / Implanted: 06/30/2020 (Quantity not on file) Stimulator [id number] / [id number] Description: Medtronic StockTwitslis Spinal Cord Stimulator model #68279. As of 06/17/22, the stimulator IPG is [...] as of 03-19-21 SDN Explanted Type Area Senior Chemist Device Shelf Model / Identifier Expiration Serial / Date Lot Hum Hd Vrs Dl [id number] - [id number] Shoulder Left: Trevor Biom et 05/29/2031 [id number] / Implanted: Qty: 1 on 12/30/2021 by Cyrus Panchal M.D. at [facility] Implant Shoulder / Explanted: Qty: 1 on 02/26/2022 at [facility] [id number] [facility] Cmp Rvrs Prim Std 10 - [id number] Shoulder Left: Zi mmer Biomet 12/16/2029 [id number] / Implanted: Qty: 1 on 02/26/2022 at [facility] Implant Shoulder / Explanted: Qty: 1 on 05/18/2022 at [facility] [id number] Spinal Cord Stimulator Spinal Cord Pelvis Nevro [...] of3 resultswithin the time period is included. [facility] gist Method Time Signature Hemoglobin 11.2 (L) [...] [facility] - [address] [place], [place] [address] [facility] [place] [address] Laboratories-[facility] [address] Basic Metabolic Panel (06/18/2022 7:50 AM CDT)Only [...] 06/18/2022 DTL Black/ mL/min/BSA 8:56 AM CDT [place] Comment: ----ADDITIONAL INFORMATION---- [...] [facility] - [address] [place], [place] [address] [facility] [place] [address] [facility] [address] MR Lumbar Spine without IV Contrast (06/17/2022 4:49 PM CDT) Anatomical Region Laterality Modality Lumbar Spine, Neuroradiology RST LOS, Neuroradiology N/A Magnetic Resonance ARZ LOS, Neuroradiology FLA [facility] Specimen (Source) Anatomical [...] 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 The [place] intraocular lenses are absent . 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 The [place] intraocular lenses are absent . 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 The [place] intraocular lenses are absent . 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 The [place] intraocular lenses are absent . 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 The [place] intraocular lenses are absent . 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 The [place] intraocular lenses are absent . Mild mucosal [...] left-sided foraminal stenosis at L1-2 through L3-4. Araceli Ochoa APRNNCristiana IMG MRI PROCEDURES LDA ANE ENDOTRACHEAL AIRWAY (06/17/2022 2:59 PM CDT) Narrative Sapphire Verma APRN, CRNA, DNAP - 06/17/20 22 2:59 PM CDT Sapphire Verma APRN, CRNA, DNAP ? 06/17/2022 ??3:34 PM Airway Date/Time: 06/17/2022 2:59 PM Performed by: Sapphire Verma APRN, CRNA, D NAP Authorized by: Sapphire Verma APRN, CRNA DNACamelia Care team members present 1. Brian Hunt M.D. Patient location during procedure: OR / Procedure Area PROCEDURE DETAILS: Mask difficulty assessment: easy mask Final airway type: video laryngoscope Laryngeal Manipulation: no ?? Final best view of glottic structures - Cormack/Lehane Score: grade 1 ETT location: oral VL device: glide scope [place] scope blade size: 3 Adult tube size: [...] ?? Airway event: no complications Sapphire Verma STOCK ROOM MANAGER, STEELWORKER, DNAP ANESTHESIA ORDERABLES Osmolality, Urine (06/16/2022 9:32 [...] [facility] - [address] [place], [place] [address] [facility] [place] [address] [facility] [address] (ABNORMAL) Dipstick, [...] M.D. LAB URINE ORDERABLES Performing Organization Address City/[facility]/ZIP Code Phon e Number [facility] - [address] pH, Random, Urine (06/16/2022 9:32 AM CDT) P athologist Signature pH, Random, U 5.0 4.5 - 8.0 06/16/2022 DTL 11:17 AM CDT Specimen Anatomical Collection Method Collection Time Receive d Time (Source) Location / / Volume Laterality Urine 06/16/2022 9:32 AM 2 CDT 10:39 AM CDT Maira Haynes M.D. LAB URINE ORDERABLES Performing Organization Address [facility] Phon e Number [facility] - [id number] [place] [address] (ABNORMAL) Microscopic Manual (06/16/2022 9:32 AM CDT) [...] M.D. LAB URINE ORDERABLES Performing Organization Address City/[facility]/ZIP Code Phon e Number [facility] - [id number] [place] [address] (ABNORMAL) Urinalysis with Microscopic: Urine, Catheter (06/16/2022 [...] M.D. LAB URINE ORDERABLES Performing Organization Address City/[facility] Phon e Number [facility] - [address] [place] [address] [address] [facility] Hemoglobin A1c (06/16/2022 7:31 AM CDT) P athologist Signature Hemoglobin A1c, 4.9 4.0 - 5.6 06/16/2022 DTL B % 8:13 AM CDT Specimen Anatomical Collection Method Collection Time Receive d Time (Source) Location / / Volume Laterality Blood (Blood, 06/16/2022 7:31 AM 06/16/20 7:51 Venous) CDT AM CDT Kiran Melton M.D. LAB BLOOD ADD-ON Performing Organization Address City/[facility] Phon e Number [facility] - [address] Vitamin B12 Assay (06/16/2022 7:31 AM [...] e Number [facility] - [address] [place] [address] [facility] [place] [address] Laboratories-[address] (ABNORMAL) Comprehensive Metabolic Panel (06/16/2022 7:31 [...] 06/16/2022 DTL Black/ mL/min/BSA 8:22 AM CDT [place] Comment: ----ADDITIONAL INFORMATION---- [...] [facility] - [address] [place], [place] [address] [facility] [place] [address] [facility] [address] Critical Care [...] life-threatening deterioration of the fo llowing conditions: TRANSCRIBING OPERATORS SUPERVISOR failure or compromise Critical care was time spent personally by me on the following activities: ordering and review of radiographic stud ies, ordering and review of laboratory studies, discussions with [facility] provider, discussions with consultants, examination of patient, rev iew of old charts and re-evaluation of patient's condition Scooter Tony APRN, C.N.P. PROCEDURE/MINOR SURGICA L ORDERABLES SARS Coronavirus 2, PCR Rapid, V Symptomatic (06/15/2022 7:51 PM CDT) [facility] Method Time Signature SARS CoV-2, Undetected Undetected 06/15/2022 STMA PCR, Rapid, V 8:23 PM CDT Comment: ----ADDITIONAL INFORMATION---- This RT-PCR test was performed using the Tita SARS-CoV-2 and Influenza A/B Reagent assay from [employer], which has received Emergency Use Authori zation(EUA) by the U.S. Food and Drug Administration . Fact sheets for this Emergency Use Autho rization (EUA) assay can be found at the following link s: For Healthcare Providers: https://www.fda.gov/media/013021/downloa d For Patients: https://www.fda.gov/media/959211/downloa d SARS Coronavirus 2, Source, Rapid Swab, Nasopharynx 06/15/2022 7:58 PM CDT STMA Specimen Anatomical Collection Method Collection Time Receive d Time (Source) Location / / Volume Laterality Varies 06/15/2022 7:51 PM 7:58 (Nasopharynx) CDT PM CDT Scooter Tony APRN, C.N.P. LAB MICROBIOLOGY - GENE RAL ORDERABLES Performing Organization Address City/State/ZIP Code Phon e Number [facility] - [address] [place], [place] [address] [facility] [place] [place] [address] [facility] [address] Head [...] 2H/6H, 5th Gen (06/15/2022 2:48 PM CDT) [facility] gist Method Time Signature Troponin T, 2 [...] 3:21 Venous) CDT PM CDT Narrative [facility] - 06/15/2022 3:54 PM CDT Specimen Information: Specimen ID: [id number] Specimen Type: Blood Specimen Collection Start Date: 06/15/20 ??2:48 PM Specimen Received Date: 06/15/2022 ??3:2 1 PM Specimen ID: [id number] Specimen Type: Blood Specimen Collection Start Date: 06/15/20 ??3:53 PM Specimen Received Date: 06/15/2022 ??3:5 3 PM Demarcus Ernst M.D. LAB BLOOD TROPONIN Performing Organization Address City/State/ZIP Code Phon e Number [facility] [address] [place], [place] [address] [place] [address] [facility] [address] DX Hip [...] MUSE QTC Interval 433 ms MUSE P [place] 48 degrees MUSE R [place] -1 degrees MUSE T Wave [place] 38 degrees MUSE Specimen Anatomical Collection Method [...] Signature Troponin T, <6 <=10 ng/L 06/15/2022 [facility] Baseline, 5th 1:37 PM CDT gen Specimen Anatomical Collection Method Collection Time Receive d Time (Source) Location / / Volume Laterality Blood (Blood, 06/15/2022 12:37 06/15/2022 1:03 Venous) PM CDT PM CDT Demarcus Ernst M.D. LAB BLOOD TROPONIN Performing Organization Address City/[facility] Code Phon e Number [facility] - [address] [place], [place] [address] [place] [address] [facility] [address] (ABNORMAL) Hepatic [...] e Number [facility] - [address] [place] [address] [facility] [place] [place] [address] [facility] 200 [facility] (ABNORMAL) CBC with Differential, Blood (06/15/2022 12:36 PM CDT) [facility] gist Method Time Signature Hemoglobin 10.4 (L) [...] M.D. LAB BLOOD ADD-ON Performing Organization Address City/[facility] Phon e Number [facility] - [id number] [place] [address] Prothrombin Time (PT) (06/15/2022 12:34 PM CDT) P athologist Signature Prothrombin 10.2 9.4 - 12.5 06/15/2022 [facility] Time, P sec 1:10 PM CDT INR 0.9 0.9 - 1.1 06/15/2022 [facility] 1:10 PM CDT Comment: ----ADDITIONAL INFORMATION---- Standard intensity warfarin therapeutic range: 2.0 to 3.0 ?? High intensity warfarin therapeutic rang e: 2.5 to 3.5 Specimen Anatomical Collection Method Collection Time Receive d Time (Source) Location / / Volume Laterality Blood (Blood, 06/15/2022 12:34 06/15/2022 1:03 Venous) PM CDT PM CDT Demarcus Ernst M.D. LAB BLOOD ADD-ON Performing Organization Address City/[facility] Phon e Number [facility] - [address] [place], [place] [address] [place] [address] Interpretation of Outside CT Spine (06/15/2022 [...] hardwa re and osteopenia. Demarcus Ernst M.D. [facility] CT PROCEDURES CT HEAD/BRAIN WO CON-Outside CT Neuro (06/14/2022 1:40 PM CDT)Only the most recent of2 resultswithin the time period is included. Specimen (Source) Anatomical Location Collection Method / Collectio n Time Received Time / Laterality Volume Narrative IICO - 06/15/2022 8:35 AM CDT This order [...] Not In System IMG DIAGNOSTIC IMAGING PROCE IVANNAES Performing Organization Address City/State/ZIP Code Phon e Number IIMS IIMS NA from Last 3 Months Insurance Payer Benefit Plan / Subscriber ID Effective Phone Address T ype Group Dates MEDICARE MEDICARE A AND B [id number] 2012-Pre [address] [place] [address] MEDICA MEDICA [id number] 2018-Pres [phone] Medica id HMO ACCESSABILITY ent [phone] [place] [address] Advance Directives For more information, please contact: [phone] Latest Code Status on File Code Status Date Activated Date Inactivated Comments Full Code 06/16/2022 1:22 AM 06/18/2022 1:00 PM Question Answer Comments Full Code: Discussed Code Status History Code Status Date Activated Date Inactivated Comments Full Code 05/18/2022 4:09 PM 05/20/2022 5:04 PM Question Answer Comments Full Code: Discussed Full Code 02/26/2022 2:52 PM 02/27/2022 2:24 PM Question Answer Comments Full Code: Discussed Full Code 12/30/2021 5:12 PM 01/01/2022 7:39 PM Question Answer Comments Full Code: Discussed Full Code 02/10/2021 11:06 PM 02/17/2021 8:26 PM Question Answer Comments Full Code: Discussed Care Teams Wind Farm Engineer Relationship Specialty Start Date End Date Elsewhere, Pcp PCP - General Family Medicine 12/25/21
--- OUTSIDE RECORDS SUMMARY | 2022-09-14 11:57 | XMS_ITS | Encounter Summary ---
:1965 Author Organization [facility] Address [address] [place] [address] Care Team Providers Name Role Phone Elsewhere, Pcp Primary Care Provider Unavailable Reason for Visit Reason Comments Pre-visit Intake Encounter Details Date Type Department Care Team Description 06/25/2022 Clinical Communication Visit Review in Pr e-visit Intake [place], [place] [address] [place], [place] [address] Social History Tobacco Use Types Packs/Day Years [...] you attend mosque or Patient refused 2021 confucianism services? Do [...] documented as of this encounter Care Teams Ironworker Apprentice Relationship Specialty Start Date End Date Elsewhere, Pcp PCP - General Family Medicine 12/25/21 documented as of this encounter
--- OUTSIDE RECORDS SUMMARY | 2022-09-14 11:57 | XMS_ITS | Encounter Summary ---
:1965 Author Organization [facility] Address [address] [place] [address] Care Team Providers Name Role Phone Elsewhere, Pcp Primary Care Provider Unavailable Reason for Referral Outpatient (Routine) - Closed Specialty Diagnoses / Procedures Referred By Contact Refer red To Contact Diagnoses Aftercare Total Shoulder Arthroplasty Flavia Broderick M.D. [facility] Procedures DX Shoulder Left 2+ Views Referral ID Status Reason Start Date Expiration Date Visits Requ ested Visits Authorized [id number] Closed 06/23/2022 06/23/2023 1 1 Reason for Visit Outpatient (Routine) - Closed Specialty Diagnoses / Procedures Referred By Contact Refer red To Contact Diagnoses Aftercare Total Shoulder Arthroplasty Flavia Broderick M.D. [facility] Procedures DX Shoulder Left 2+ Views Referral ID Status Reason Start Date Expiration Date Visits Requ ested Visits Authorized [id number] Closed 06/23/2022 06/23/2023 1 1 Encounter Details Date Type Department Care Team Description 06/29/2022 Hospital Encounter Department of Flavia Broderick re Total Radiology, Severiano Porter M.D. Shoulder Arthroplasty Building, in [place], [place] [address] [place] [address] Social History Tobacco Use Types Packs/Day Years [...] you attend congregation or Patient refused 2021 pentecostal services? Do you belong to any clubs or No 05/17/2022 organizations such as congregation groups, unions, [employer] or athletic groups, or school groups? How [...] documented as of this encounter Care Teams Pantograph Machine Operator Relationship Specialty Start Date End Date Elsewhere, Pcp PCP - General Family Medicine 12/25/21 documented as of this encounter
--- OUTSIDE RECORDS SUMMARY | 2022-09-14 11:57 | XMS_ITS | Encounter Summary ---
:1965 Author Organization [facility] Address [address] [place] [address] Care Team Providers Name Role Phone Elsewhere, Pcp Primary Care Provider Unavailable Reason for Visit Appointment Request (Routine) - Closed Specialty Diagnoses / Procedures Referred By Contact Refer red To Contact Orthopedic Surgery Diagnoses Aftercare Total Shoulder Arthroplasty Referral ID Status Reason Start Date Expiration Date Visits Requ ested Visits Authorized [id number] Closed 06/23/2022 06/23/2023 1 1 Encounter Details Date Type Department Care Team Description 06/29/2022 Office Visit Department of Cyrus Polk Left Orthopedic Surgery in [place] (Primary Dx) [place], [place] [address] [place] [address] 200 [place] [phone] Social History Tobacco Use Types Packs/Day Years [...] you attend buddhism or Patient refused 2021 anabaptism services? Do [...] is dismissed to follow up through the [facility], Department of Orthopedic Surgery Total [...] as of this encounter Care Teams Window Dresser Relationship Specialty Start Date End Date Elsewhere, Pcp PCP - General Family Medicine 12/25/21 documented as of this encounter
--- OUTSIDE RECORDS SUMMARY | 2022-09-14 11:57 | XMS_ITS | Encounter Summary ---
:1965 Author Organization [facility] Address [address] [place] [address] Care Team Providers Name Role Phone Elsewhere, Pcp Primary Care Provider Unavailable Reason for Visit Reason Comments Medication Question Encounter Details Date Type Department Care Team Description 06/21/2022 Clinical Communication RST ANDREW Pollard, Medication Question 200 [facility] Lilian Hughes [place], [place] 200 [facility] [address] [place] [address] Social History Tobacco Use Types Packs/Day Years [...] you attend zoroastrianism or Patient refused 2021 evangelical services? Do [...] this encounter Miscellaneous Notes Telephone Encounter - Hdoa Benito M.D. - 06/24/2022 1:12 PM CDT Prescriptions are sent to [facility] Telephone Encounter - Brenda Wright - 06/23/2022 3:02 PM CDT The patient called again re: her pregabalin prescription. She did not pick it up at the hospital pharmacy since she did not know it was there. Her regular pharmacy is [facility] in [place]. A newprescription needs to be sent to [facility] in [place]. The patient is out of this medication. Please call the patient if any questions: . She has been calling and has not heard from anyone re: this. Maritza Jefferson [phone] Patient is saying that she never was told to hot die picker the following prescription when she was discharged on 06/17: pregabalin (LYRICA) 300 mg capsule Please send new prescription to [facility] in [place], [place] Please call patient if there are any questions. Brenda Jefferson [phone] documented in this encounter Plan of Treatment Not on filedocumented as of this encounter Visit Diagnoses Not on filedocumented in this encounter Additional Health Concerns Assessment Noted Time PHQ-9 Depression Total Score: 16 02/11/2021 12:00 AM C DT documented as of this encounter Care Teams Ice Skating Coach Relationship Specialty Start Date End Date Elsewhere, Pcp PCP - General Family Medicine 12/25/21 documented as of this encounter
--- OUTSIDE RECORDS SUMMARY | 2022-09-14 11:57 | XMS_ITS | Encounter Summary ---
:1965 Author Organization [facility] Address [address] [place] [address] Care Team Providers Name Role Phone Elsewhere, Pcp Primary Care Provider Unavailable Reason for Visit Reason Comments Patient needs to r/s Jul 02 appointments Encounter Details Date Type Department Care Team Description 06/28/2022 Clinical Communication RST ANDREW Pollard, Patient needs to r/s [address] [facility] Lilian Hughes Jul 02 appointments [place], [place] [address] [place] [phone] [place] [address] Social History Tobacco Use Types Packs/Day Years [...] you attend orthodox or Patient refused 2021 jew services? Do [...] reschedule her appointments that are scheduled for Tuesday, July 02. She is asking that they be r/s to tomorrow, June 29, if possible since she is coming for otherappointments then. Please call patient re: this . Ronny, Maritza [phone] documented in this encounter Plan of Treatment Not on filedocumented as of this encounter Visit Diagnoses Not on filedocumented in this encounter Additional Health Concerns Assessment Noted Time PHQ-9 Depression Total Score: 16 02/11/2021 12:00 AM C DT documented as of this encounter Care Teams Trash Collector Relationship Specialty Start Date End Date Elsewhere, Pcp PCP - General Family Medicine 12/25/21 documented as of this encounter
--- OUTSIDE RECORDS SUMMARY | 2022-09-14 11:57 | XMS_ITS | Encounter Summary ---
:1965 Author Organization [facility] Address [address] [place] [address] Care Team Providers Name Role Phone Elsewhere, Pcp Primary Care Provider Unavailable Reason for Referral Outpatient (Routine) - Authorized Specialty Diagnoses / Procedures Referred By Contact Refer red To Contact Diagnoses Pain Shoulder Left Alfredo Herrera O.P.A.-[facility] Procedures DX Shoulder Left 2+ Views [address] [place] [phone] Referral ID Status Reason Start Date Expiration Date Visits V isits Requested Authorized [id number] Authorized 08/09/2022 08/09/2023 1 1 Reason for Visit Reason Comments Return Visit Encounter Details Date Type Department Care Team Description 08/09/2022 Clinical Communication Department of Cyrus Polk Visit Orthopedic Surgery in [place] Souza [place], [place] [address] [place] [address] 200 [place] [address] [phone] Social History Tobacco Use Types Packs/Day Years [...] you attend denominational or Patient refused 2021 episcopal services? Do you belong to any clubs or No 05/17/2022 organizations such as denominational groups, unions, [employer] or athletic groups, or school groups? How [...] documented as of this encounter Care Teams Pediatric Cardiologist Relationship Specialty Start Date End Date Elsewhere, Pcp PCP - General Family Medicine 12/25/21 documented as of this encounter
--- OUTSIDE RECORDS SUMMARY | 2022-09-14 11:57 | XMS_ITS | Encounter Summary ---
:1965 Author Organization [facility] Address [address] [place] [address] Care Team Providers Name Role Phone Elsewhere, Pcp Primary Care Provider Unavailable Reason for Visit Reason Comments Pre-visit Intake Encounter Details Date Type Department Care Team Description 09/01/2022 Clinical Communication Visit Review in Pr e-visit Intake [place], [place] 200 [place], [place] [id number] Social History Tobacco Use Types Packs/Day Years [...] you attend anglican or Patient refused 2021 islam services? Do [...] documented as of this encounter Care Teams Driver Helper Relationship Specialty Start Date End Date Elsewhere, Pcp PCP - General Family Medicine 12/25/21 documented as of this encounter
--- OUTSIDE RECORDS SUMMARY | 2022-09-14 11:57 | XMS_ITS | Encounter Summary ---
:1965 Author Organization [facility] Address [address] [place] [address] Care Team Providers Name Role Phone Elsewhere, Pcp Primary Care Provider Unavailable Encounter Details Date Type Department Care Team Description 09/06/2022 Clinical Communication Department of Cyrus Polk Orthopedic Surgery in [place] Sou[place], [place] [address] [place] [address] 200 [place] [address] [phone] Social History Tobacco Use Types Packs/Day Years [...] you attend catholic or Patient refused 2021 gnosticism services? [...] documented as of this encounter Care Teams Ground Products Director Relationship Specialty Start Date End Date Elsewhere, Pcp PCP - General Family Medicine 12/25/21 documented as of this encounter
--- OUTSIDE RECORDS SUMMARY | 2022-09-14 11:57 | XMS_ITS | Encounter Summary ---
:1965 Author Organization [facility] Address [address] [place] [address] Care Team Providers Name Role Phone Elsewhere, Pcp Primary Care Provider Unavailable Reason for Visit Reason Comments Pregabalin prescription Encounter Details Date Type Department Care Team Description 06/22/2022 Clinical Communication RST ANDREW Pollard, Pregabalin [address] [facility] Lilian Hughes prescription [place], [place] [address] [facility] [address] [place] [address] Social History Tobacco Use Types Packs/Day Years [...] Maritza Carrillo - 06/22/2022 12:18 PM CDT [facility] called. The patient had a prescription for Pregabalin sent to one of the [facility]ies on 06/17/22 and she never picked it up. [facility] would like the prescription sent to them since they provide the prescriptions to the patient. Please phone or send a new prescription for Pregabalin 300 mg to [facility] in [place]. Please do as soon as able, the patient is out of this medication. Thank you, Maritza [phone] documented in this encounter Plan of Treatment Not on filedocumented as of this encounter Visit Diagnoses Not on filedocumented in this encounter Additional Health Concerns Assessment Noted Time PHQ-9 Depression Total Score: 16 02/11/2021 12:00 AM C DT documented as of this encounter Care Teams Ventilated Rib Fitter Relationship Specialty Start Date End Date Elsewhere, Pcp PCP - General Family Medicine 12/25/21 documented as of this encounter
--- OUTSIDE RECORDS SUMMARY | 2022-09-14 11:57 | XMS_ITS | Encounter Summary ---
:1965 Author Organization [facility] Address 200 [place] [address] Care Team Providers Name Role Phone Elsewhere, Pcp Primary Care Provider Unavailable Reason for Referral Physical Therapy (Routine) - Authorized Specialty Diagnoses / Procedures Referred By Contact Refer red To Contact Diagnoses Aftercare Total Shoulder Arthroplasty Flavia Broderick M.D. [facility] Procedures PT or OT eval and treat (first available) Referral ID Status Reason Start Date Expiration Date Visits V isits Requested Authorized [id number] Authorized 06/23/2022 06/23/2023 99 99 utpatient (Routine) - Closed Specialty Diagnoses / Procedures Referred By Contact Refer red To Contact Diagnoses Aftercare Total Shoulder Arthroplasty Flavia Broderick M.D. [facility] Procedures DX Shoulder Left 2+ Views Referral ID Status Reason Start Date Expiration Date Visits Requ ested Visits Authorized [id number] Closed 06/23/2022 06/23/2023 1 1 Reason for Visit Reason Comments Post-op Encounter Details Date Type Department Care Team Description 06/23/2022 Clinical Communication Department of Cyrus Polk-op Orthopedic Surgery in [place] Souza [place], [place] 200 [facility] 200 [place] [address] [phone] Social History Tobacco Use Types Packs/Day Years [...] you attend christian or Patient refused 2021 mandaen services? Do [...] as of this encounter Care Teams Emergency Medicine Physician Relationship Specialty Start Date End Date Elsewhere, Pcp PCP - General Family Medicine 12/25/21 documented as of this encounter
--- OUTSIDE RECORDS SUMMARY | 2022-09-14 11:58 | XMS_ITS | Encounter Summary ---
:1965 Author Organization [facility] Address [address] [place] [address] Care Team Providers Name Role Phone Elsewhere, Pcp Primary Care Provider Unavailable Reason for Visit Reason Comments Post-op Problem Encounter Details Date Type Department Care Team Description 06/03/2022 Clinical Communication Department of Cyrus Polk st-op Problem Orthopedic Surgery in [place] Souza [place], [place] [address] [place] [address] 200 [place] [address] [phone] Social History Tobacco Use Types Packs/Day Years [...] you attend rastafarian or Patient refused 2021 mu-ism services? Do [...] Cyrus Polk M.D. CT CT Job ID: [id number] documented in this encounter Miscellaneous Notes Telephone [...] bent forward again. Please call her at [phone] to discuss. documented in this encounter Plan of Treatment Not on filedocumented as of this encounter Visit Diagnoses Not on filedocumented in this encounter Additional Health Concerns Assessment Noted Time PHQ-9 Depression Total Score: 16 02/11/2021 12:00 AM C DT documented as of this encounter Care Teams Saddle Stitcher Relationship Specialty Start Date End Date Elsewhere, Pcp PCP - General Family Medicine 12/25/21 documented as of this encounter
--- OUTSIDE RECORDS SUMMARY | 2022-09-14 11:58 | XMS_ITS | Encounter Summary ---
:1965 Author Organization [facility] Address [address] [place] [address] Care Team Providers Name Role Phone Elsewhere, Pcp Primary Care Provider Unavailable Reason for Visit Reason Comments xray results Encounter Details Date Type Department Care Team Description 06/10/2022 Clinical Communication Department of Cyrus Polk xr ay results Orthopedic Surgery in [place], [place] [address] [place] [address] 200 [place] [address] [phone] Social History Tobacco Use Types Packs/Day Years [...] you attend orthodoxy or Patient refused 2021 evangelical services? Do [...] Cyrus Polk M.D. CT CT Job ID: [id number] documented in this encounter Miscellaneous Notes Telephone [...] documented as of this encounter Care Teams Cement Or Concrete Finishing Supervisor Relationship Specialty Start Date End Date Elsewhere, Pcp PCP - General Family Medicine 12/25/21 documented as of this encounter
--- OUTSIDE RECORDS SUMMARY | 2022-09-14 11:58 | XMS_ITS | Encounter Summary ---
:1965 Author Organization [facility] Address 200 [place] [address] Care Team Providers Name Role Phone Elsewhere, Pcp Primary Care Provider Unavailable Encounter Details Date Type Department Care Team Description 06/17/2022 Orders Only RST HIM Latrice, Chronic Pain Syndrome (Prima ry Dx); [address] [facility] Lilian Hughes Transient Ischemic Attack; [place], [place] 200 [facility] Fibromyalgia [address] [place] [address] Social History Tobacco Use Types Packs/Day Years [...] you attend buddhism or Patient refused 2021 jainism services? Do [...] as of this encounter Care Teams Wire Spiral Binder Relationship Specialty Start Date End Date Elsewhere, Pcp PCP - General Family Medicine 12/25/21 documented as of this encounter
--- OUTSIDE RECORDS SUMMARY | 2022-09-14 11:58 | XMS_ITS | Encounter Summary ---
:1965 Author Organization [facility] Address [address] [place] [address] Care Team Providers Name Role Phone Elsewhere, Pcp Primary Care Provider Unavailable Encounter Details Date Type Department Care Team Description 05/18/2022 Surgery RST SEBAS [facility]AN OR Cyrus Polk, ARTHROPLASTY REPLACEMENT [address] [place] [address] [address] [facility] [phone] [place] [id number] Social History Tobacco Use Types Packs/Day Years [...] you attend adventist or Patient refused 2021 buddhism services? Do [...] or the highest technical, or vocational p Askemjorge degree you have received? Sex Assigned at [...] AM CDT DISCHARGE SUMMARY BRIEF OVERVIEW Hospital: [facility] Discharge Provider: Cyrus Polk M.D. Primary Team: T Orthopedic Surgery - Jam Primary Care Providers: Elsewhere, Pcp (General) No address on file Primary Care Provider Phone Number: None Primary Care Provider Fax Number: None Other Providers: None Admission Date: 05/18/2022 Discharge Date: 6/23/22 PRINCIPAL DIAGNOSIS Primary Osteoarthritis Shoulder Left SECONDARY DIAGNOSES Principal Problem: Primary Osteoarthritis Shoulder Left Resolved Problems: * No resolved hospital problems. * Surgery Information This Encounter Past Procedures (05/19/2021 to Today) Date Procedures Providers Location 05/18/2022 ARTHROPLASTY REPLACEMENT TOTAL SHOULDER. Cyrus Polk M.D.Wasserburger, Jory N, M.D.Markos, James R, M.D. RST ROEI OR DISCHARGE DISPOSITION Home-Health Care [facility] [6] ACTIVE ISSUES REQUIRING FOLLOW UP This document serves as a prescription to continue physical therapy, medications, and labs or x-raysif ordered/required. If you have any questions or concerns about surgery or upcoming appointments, please do not hesitateto contact Dr. Polk's office at [phone] during regular business hours (8am-5pm M-F). For emergencies on the weekend or after hours, you may contact Dr. Polk's service via the [facility] web press operator apprentice at [phone]. Details for your 6 week follow-up appointment [...] to: Cyrus Polk MD Dept of Orthopedics [address], [address] None OUTPATIENT FOLLOW UP For appointment details [...] Polk M.D.Jenna Zaldivar M.D.Markos, James R, M.D. [facility] OR Angie Mosquera was taken to [...] THC multivit-min/iron/folic/ Take 1 tablet by 0 [id number] (HAIR, SKIN AND mouth daily. NAILS ADVANCED [...] mask during therapy session: yes Outcome Measures -[facility] Inpatient Short Form: AM-PAC Basic [...] Time (min): 27 min Jey Harper P.T., NeriPAna Kaushik Cadena M.D. - 05/20/2022 7:31 AM [...] 6 pm, please page Jam service at [phone] For urgent matters from 6 pm until 6 am, please page [facility] at [facility] [phone] Jane Nguyen, Pharm.D., R.Ph. - 05/19/2022 8:12 AM CDT [...] at this time. Jane Nguyen Pharm.D., R.Ph. [phone] Kaushik Cadena M.D. - 05/19/2022 7:34 AM [...] 6 am until 6 pm, please page [facility] at [phone] For urgent matters from 6 pm until 6 am, please page [facility] [place] at [facility] [phone] Paco Valentine - 05/18/2022 9:47 AM CDT Encounter: AM Admit Deanna Tradition: No buddhism affiliation. Ms. Mosquera did not express any spiritual needs at this time. Plan: Will remain available for spiritual care as needed or requested. Chaplains can be contacted bypaging [phone] ([facility]). Rodrigo Preston, Pharm.D., R.Ph. - [...] Take 150 mg by mouth every morning. editfcqyic-nefncvruanpkj-lhgy (ESGIC) 50-325-40 mg per tablet Past Week [...] 1 spray as needed. 5 mg THC multivit-min/iron/folic/bkf043 (HAIR, SKIN AND NAILS ADVANCED ORAL) Past [...] (HCC) ??? Nicotine Dependence Unspecified ??? 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 Direct Infection Of [...] Profile Lives With: Alone Receives Help From: washateria attendant, Family, Friend(s) ADL Assistance: Required assistance ADL Assistance Comments: Gets help from SENIOR SITE MANAGER for her bath/shower 3x/week, and for her meals IADL/Homemaking Assistance: Required assistance IADL/Homemaking Assistance Comments: Gets help for housecleaning Driving: Does not drive Driving Comments: takes her cane and medical alert with her. Occupational Role: On disability Occupational Role Comments: Previously worked at a [email or web address] Prior Mobility/Functional Transfers Level of [place]: Needs assistance Previous Transfer/Mobility Assistance Comments: Patient [...] mask during therapy session: yes Outcome Measures AM-[facility] Inpatient Short Form: AM-[facility] Basic Mobility (V.2) How much [...] 3-5 steps with a railing?: A Little -[facility] Basic Mobility (V.2) Raw Score: 18 -[facility] Basic Mobility (V.2) Standardized Score: 41.05 Interpretation: Clinicians answer the -[facility] Inpatient Short Form based on [...] Nurse Referral Reason: Discharge Planning Primary Language: North Korean Marketing Proposal Coordinator Services Used: No Person(s) present during interview: Person(s) Present During Interview: patient History of Present Illness #1 Primary Osteoarthritis Shoulder Left Social History Support System: children, human services case manager/protective services social worker, friends/neighbors and home care [...] Calm, Oriented Communication: Talks, Understands speaking, Understands [place] Korean Shopping: Needs assistance Transportation: Support from family Medication Management: Needs assistance Housekeeping: Needs assistance Meal Prep: Needs assistance Managing Finances: Independent Assistive Devices: Grab bars - wall, Eyeglasses Services/Resources: Other (comment) Agency Name: [facility] Provided: SENIOR SITE MANAGER services 3x/week, nurse visits every other week Baseline Services/Resources Primary care clinic and provider: [facility] Phone: Fax: Anticipated Needs Functional Status: Transfer to/from bed, chair, etc., Bathing, Dressing, Grooming/hygeine, Housekeeping, Shopping, Meal preparation, Mobility, Medication set-up/administration, Transportation use (drive car, use taxi/bus) Services/Resources: Other (comment) Agency Name: [facility] Provided: SENIOR SITE MANAGER services 3x/week, nurse visits every other week Transportation Needs: Support from family Does the patient need discharge transport arranged?: No Ride and Caregiver Arranged: Yes Anticipated Discharge Destination: Home-Health Care [facility] ASSESSMENT / PLAN Assessment: The grades 6 through 8 teacher met with Angie Mosquera to discuss her current hospitalization and home goingneeds. The patient was unaccompanied. The patient was a reliable historian. The role of grades 6 through 8 teacher was reviewed. The patient reviewed her prior level of care and support system. The patient receives support from her son, friends and home care staff. Patient reported her son lives in the same apartment as her. She also stated getting SENIOR SITE MANAGER services 3x/week and a nurse visits her every other week. The patient described her living environment as a two bedroom apartment. Housekeeping, grocery shopping, meal prep, and other household responsibilities have previously been completed by patient, patient's son and patient's caregiver(s). grades 6 through 8 teacher discussed the patient's potential needs at [employer] based on their home setting, previous needs and responsibilities, homebound status, and relevantassessments with the patient. The patient will be safe and supported to return home with [facility] or previous services noted above when medically ready. Support will be provided by son, friends and home care staff. The patient demonstrated understanding when discussing her home going plans and anticipated needs. At this time, the care team anticipates the patient requires the following service(s) to be reconnected: home healthcare. The patient identified the following as their current vendor(s): [facility]. During this visit patient verbalized she is hoping to increase her SENIOR SITE MANAGER hours and also inq uired about getting a scooter to assist in her mobility. Patient went on to share she is unstable attimes due to her stroke history. She thought perhaps her neurology doctor would be able to help her get a scooter. RADHA DONAHUE recommended she follow up with the critical access hospital in regards to wanting more SENIOR SITE MANAGER hours. She was also recommended to follow up with her primary care provider to provide durable medical equipment justification for a scooter, as she is currently hospitalized for orthopedic surgery. Patient verbalized understanding. Patient informed RADHA DONAHUE would be reconnecting her SENIOR SITE MANAGER services and nurse visits with [facility]. Patient agreeable to RN ROWAN completing this and even provided RN CM the name and contact of her SENIOR SITE MANAGER and RN. After reviewing the patient's chart and meeting with the patient, the grades 6 through 8 teacher deemed the LACE+/readmission questions were not necessary. The patient reports understanding that she will dismiss from the hospital when medically stable. Pending hospital course and medical readiness, no barriers to dismissal have been identified at this time. Plan: Patient to discharge with home health care. [facility] Contact: RADHA Palomino ATTN: Georgette [...] directive. PRIMARY SERVICE: - Please provide a non-[place] home health order for resumption of previous [...] dismissal will be provided by family. 3. grades 6 through 8 teacher recommended reaching out to family, friends, and neighbors for assistance. 4. grades 6 through 8 teacher provided information regarding the dismissal process. 5. grades 6 through 8 teacher placed or requested the following hospital-based consult orders and/or referrals:None. 6. grades 6 through 8 teacher will continue to assess for homegoing needs with the interdisciplinary team. 7. grades 6 through 8 teacher encouraged the patient to reach out with [...] falls. Patient will discharge to home with [facility] reconnect. Identify possible barriers to meeting goals/advancing plan of care: none End of Shift Summary: Patient stayed on schedule with prn pain meds (Tramadol and oxycodone) throughout the shift. Encouraged using ice packs to help with pain and swelling. Patient's primapore dressing was changed to Aquacell [employer] and is clean, dry and intact. 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 Patient expects RN from [facility] to visit on May 24. Patient's friend will transport home. Medications including: oxycodone and tramadol were picked up [facility]. documented in this encounter OR Notes Op Note - Cyrus Polk M.D. - 05/18/2022 5:54 PM CDT STAFF: Cyrus Polk M.D. RESIDENT: Jenna Zaldivar M.D. PRE-OPERATIVE DIAGNOSIS Left dislocated reverse arthroplasty. POST-OPERATIVE DIAGNOSIS Left dislocated reverse arthroplasty. A customer support assistant actively participated and was necessary for [...] glenosphere, placement new humeral stem and tray, [id number] Cyrus Polk M.D. CT CT Job ID: [id number]/mac documented in this encounter Miscellaneous Notes Hospital Course - Kaushik Cadena M.D. - 05/19/2022 12:18 PM CDT Surgery Information This Encounter Past Procedures (05/19/2021 to Today) Date Procedures Providers Location 05/18/2022 ARTHROPLASTY REPLACEMENT TOTAL SHOULDER. Cyrus Polk M.D.Wasserburger, Jory N, M.D.Markos, James R, M.D. [facility] OR Angie Mosquera was taken [...] with Differential, Blood (05/20/2022 3:43 AM CDT) [facility] Method Time Signature Hemoglobin 8.4 [...] [facility] - [address] [place], [place] [address] [facility] [place] [address] [facility] [address] [facility] (ABNORMAL) CBC with Differential, Blood (05/19/2022 3:26 AM CDT) [facility] gist Method Time Signature Hemoglobin 7.6 [...] [facility] - [address] [place], [place] [address] [facility] [place] [address] [address] [facility] (ABNORMAL) Basic Metabolic Panel (05/19/2022 3:26 [...] 05/19/2022 DTL Black/ mL/min/BSA 4:38 AM CDT Martiniquais Comment: ----ADDITIONAL INFORMATION---- Estimated [...] [facility] [address] [place], [place] [address] [facility] [place] [address] [address] DX Shoulder [...] postoperative purposes. Jenna NIELSON DIAGNOSTIC IMAGING PROCE [facility] Surgical Pathology, Frozen Lab (05/18/2022 1:04 PM CDT) Component Value Ref Test Analysis Performed At [facility] Method Time Signature 05/20/2022 METH 11:46 AM [...] LAB SURG PATH ORDERABLES Performing Organization Address City/[facility] Phon e Number [facility] - [address] [place] [address] Laboratories-[place] [address] [address] [facility] Bacteria Cult, Aerobe / Anaerobe+Susc (05/18/2022 1:03 PM CDT) [facility] gist Method Time Signature Bacteria Cult, No growth 06/01/2022 DTL Aerobe/Anaerob after 14 6:02 PM CDT e+Susc days of incubation. Specimen Anatomical Collection Method Collection Time Receive d Time (Source) Location / / Volume Laterality Shoulder, Left 05/18/2022 1:03 PM 022 5:21 CDT PM CDT Comment: Specimen Source Site: Tissue #1 Narrative [facility] - [facility] - 06/01/2022 6:02 PM CDT Bacterial Culture: Placed in Bactec aero bic and Bactec anaerobic bottles Cyrus Polk M.D. LAB MICROBIOLOGY - GENERAL O RDERABLES Performing Organization Address [facility] Phon e Number [facility] - [address] [place] [address] [facility] DTL [address] Bacteria Cult, Aerobe / Anaerobe+Susc (05/18/2022 1:03 PM CDT) [facility] [employer] Method Time Signature Bacteria Cult, No growth 06/01/2022 DTL Aerobe/Anaerob after 14 6:02 PM CDT e+Susc days of incubation. Specimen Anatomical Collection Method Collection Time Receive d Time (Source) Location / / Volume Laterality Shoulder, Left 05/18/2022 1:03 PM 022 5:12 CDT PM CDT Comment: Specimen Source Site: Tissue #3 Narrative [facility] - 06/01/2022 6:02 PM CDT Bacterial Culture: Placed in Bactec aero bic and Bactec anaerobic bottles Cyrus Polk M.D. LAB MICROBIOLOGY - GENERAL O RDERASARAH Performing Organization Address City/[facility] Phon e Number [address] [place], [place] [id number] [place] [address] Bacteria Cult, Aerobe / Anaerobe+Susc (05/18/2022 1:03 PM CDT) [facility] Time Signature Bacteria Cult, No growth 06/01/2022 DTL Aerobe/Anaerob after 14 6:02 PM CDT e+Susc days of incubation. Specimen Anatomical Collection Method Collection Time Receive d Time (Source) Location / / Volume Laterality Shoulder, Left 05/18/2022 1:03 PM 022 5:07 CDT PM CDT Comment: Specimen Source Site: Tissue #2 Narrative [facility] - 06/01/2022 6:02 PM CDT Bacterial Culture: Placed in Bactec aero bic and Bactec anaerobic bottles Cyrus Polk M.D. 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) Primary Osteoarthritis Shoulder Left Shoulder Joint Disorder Left documented [...] 05/19/2022 05/20/2022 acetaminophen tablet 1,000 mg (TYLENOL) 7705 (Given - Provider: Corrie Toscano RRebekah.)1384 (Given - Provider: Catalina Mccloud R.N.) 0523 (Given - Provider: Catalina Mccloud R.N.)1158 (Given - Provider: Isaura Vu RBrittonNBritton)1722 (Given - Provider: Sen Thorne., R.N., O.C.N.) [...] dose, Pr e-Op aspirin tablet 325 mg 120 (Give n - Provider: Kennedi Jensen R.N.) 325 mg, oral, Every evening, First dose on Tue05/20/22 at 1030 atorvastatin tablet 80 mg (LIPITOR) 2050 (Given - Prov ider: Bettie Macias R.N.) 2225 (Given - Provider: Leticia Thorne, R. N., [...] 0338 (New Bag - Provider: Catalina claudio RBetsy) [...] 1240 (Given - Provider: Ihsan Townsend APRN, RN FIELD) 2,000 mg (rounded from 1,652.5 mg = [...] (Not Given - Prov ider: Corrie Toscano RBrittonN. - Reason: Patient/family refused) 0849 (Given - [...] Provider: Isaura Vu R.N.)2225 (Given - Provider: Leticia Thorne, R.N., O.C.N. - Comment: pt request) 0909 (Given - Provider: Isaura Vu R.N.) 200 mg, oral, 2 times daily, First dose on Tue05/18/22 at 2100 magnesium oxide tablet 200 mg (MAG-OX) 0 612 (Given - Provider: Catalina Mccloud R.N.) 0552 (Given - Provider: Jere collado RBetsy) [...] (LYRICA) 0857 (Given - Provider: Isaura Vu R.N.)222 (Given - Provider: Jonny ThorneSBrittonNBritton, R.N., O.C.N. - Comment: pt request) 09 (Given - Provider: Isaura Vu R.N.) 600 mg, oral, 2 times daily, First dose (after last modification) on Tue05/19/22 at 0900 QUEtiapine tablet 50 mg (SEROquel) 2051 (Given - Provi marquis: Bettie Macias R.N.) 222 (Given - Provider: Candace guerra M.S.NBritton, R.N., O.C.N. - Comment: pt request) 50 mg, oral, Daily at bedtime, First dose on Tue05/18/22 at 2100 rOPINIRole tablet 2 mg (REQUIP) 2050 (Given - Provider: Pravin De La Rosa R.N.) 2224 (Given - Provider: Candace Lanza M.S.NBritton, R.N., O.C.N. - Comment: pt request) 2 mg, oral, Daily at bedtime, First dose on Tue05/18/22 at 2100 sennosides-docusate sodium 8.6-50 mg per tablet 1 tabl et (SENOKOT-S) 2051 (Given - Provider: Bettie Macias R.N.) 0849 (Given - Provider: Isaura Vu R.N.)2224 (Given - Provider: Candace Lanza M.S.NBritton, R.N., O.C.N. - Comment: pt request) 0908 (Given - Provider: Isaura Vu R.N.) 1 tablet, oral, 2 times daily, First dos e on Tue05/18/22 at 2100, Do not give if patient has diarrhea. tranexamic acid in NaCl IVPB 1,000 mg (CYKLOKAPRON) (C OMPLETED) 1240 (Given - Provider: Ihsan Townsend APRN, RN FIELD) 1,000 mg (1 g), intravenous, at 300 [...] H Mirella , R.N.)2224 (Given - Provider: Sen Thorne., R.N., O.C.N. - Comment: pt request) 3137 (Given - Provider: Isaura Vu R.N.) 300 [...] PERLES) 0501 (Given - Provider: Catalina Mccloud R.N.)2233 (Given - Provider: Candace Lanza M.S.N., R.N., O.C.N.) 100 mg, oral, 3 [...] Provider: Isaura Vu RRebekah.)1957 (Given - Provider: Sharifa AndradeN.)2241 (Given - Provider: Candace Lanza, M.S.N., R.N., O.C.N.) 400 mg of calcium, oral, Every 2 hour NJ N, indigestion, Starting on Tue05/18/22 at 1608, [...] 1508 (Canceled Entry - Provider: Isaura Vu RBetsy) 4 mg, intravenous, Once as needed, nause [...] RBrittonN.) 0504 (Given - Provider: Catalina Mccloud RBrittonN.) 092 1 (Given - Provider: Isaura Vu R.N.) 25 mg, oral, Every 6 hours PRN, itching, Starting on Tue05/18/22 at 1722 fentaNYL injection 25 mcg (SUBLIMAZE) (CANCELED) 1121 (Given - Provider: Cristy Roetzler Marlene, R.N.) 25 mcg, intravenous, Every 2 min [...] - Provider: Christiano Posada.N.)1430 (Given - Provider: Christiano Posada.N.)1437 (Given - Provider: Christiano Posada.N.) 25 mcg, intravenous, Every 2 min PRN, Fo r pain 4 or greater (maximum 100 mcg). If max dose of Fentanyl is reached and if pain is greater than 4, discontinue Fentanyl: give Hydromorphone, Starting on Tue05/18/22 at 1414, PACU (only) granisetron (PF) injection 1 mg (KYTRIL) (COMPLETED) 1 416 (Given - Provider: Eve Smith RBrittonNBritton) 1 mg, intravenous, Once as needed, nause [...] Land R.N.)1506 (Given - Provider: Viktoriya Land RBrittonN.)1516 (Given - Provider: Viktoriya Land R.N.) 0.2 mg, intravenous, Every 5 min PRN, mo derate pain or score 4-6 of 10, severe pain or score 7-10 of 10, Starting on Tue05/18/22 at 1414, PACU (only), Up to maximum total dose of 2 mg HYDROmorphone (PF) injection 0.2 mg (DILAUDID) 224 (Given - Provider: Candace Lanza, MBrittonSBrittonN., R.N., O.C.N.) 0.2 mg, intravenous, Every 2 [...] Mccloud R.N.)1153 (Given - Provider: Isaura Vu RBetsy) 10 [...] (ROXICODONE)(Linked Group 1) 1600 (Given - Provider: Isuara Vu RRebekah.)2005 (See Alternative - Provider: Melissa Garcia RBrittonN.) 0124 (See Alternative - Provider: Carole Pérez.S.Milad, R.N.)0552 (See Alternative - Provider: Jere Levy [...] Melissa Garcia R.N.) 0124 (Given - Provider: Jonny PérezSBetsy, R.N.)0552 (Given - Provider: Jere Levy R.N.)1004 [...] over 3 days 1 patch (TRANSDERM S REGULATOR TESTER) (CANCELED) 1118 (Medication Applied - Provider: Cristy [...] R.N.) 0612 (Given - Provider: Catalina lerma R.NBritton)1209 (Given - Provider: Isaura Vu R.N.) 0124 (Given - Provider: Rafal Waller, M.S.N., R.N.)0732 (Given - Provider: Isaura Vu RBrittonNBritton)1359 (Given - Provider: Isaura Vu R.N.) 100 [...] Sal Mccloud R.N.)1209 (See Alternative - Provider: Sharifa CuevasNBritton) 0124 (See Alternative - Provider: Rafal Waller, M.S.N., R.N.)0732 (See Alternative - Provider: Sharifa CuevasN.)1359 (See Alternative - Provider: Isaura Vu R.N.) [...] documented as of this encounter Care Teams Instructor Robotics Relationship Specialty Start Date End Date Elsewhere, Pcp PCP - General Family Medicine 12/25/21 documented as of this encounter
--- OUTSIDE RECORDS SUMMARY | 2022-09-14 11:58 | XMS_ITS | Encounter Summary ---
:[address] [facility] Address [address] [place] [id number] Care Team Providers Name Role Phone Elsewhere, Pcp Primary Care Provider Unavailable Reason for Visit Reason Comments Followup [facility] Patient Encounter Details Date Type Department Care Team Description 06/15/2022 Clinical Communication Department of [facility], Robert gay ([facility] Neurology in [place], [place] Patient/) [place], [facility] [address] [place], [place] [address] [place] [phone] [place], [place] [phone] (Work) [phone] Social History Tobacco Use Types Packs/Day Years [...] you attend pentecostalism or Patient refused 2021 jew services? Do [...] being assessed. Telephone Encounter - Allyssa Amaya [place] - 06/15/2022 8:18 AM CDT Chief Complaint Reason for Call: Patient calls in. Please see details from intake call yesterday. She adds a few notes saying she perhaps is having similar symptoms again today. She said the symptoms won't stop. She asks to be put in the hospital to figure out what is wrong with her. She did end up being seeing in [place] and had a CT scan. I told her to followup with them and make sure that the images are sent here for Dr. Diehl to review. Caller was made aware of the two- to four-business day call turnaround time. 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
--- OUTSIDE RECORDS SUMMARY | 2022-09-14 11:58 | XMS_ITS | Encounter Summary ---
:1965 Author Organization [facility] Address [address] [place] [address] Care Team Providers Name Role Phone Elsewhere, [...] you attend anabaptism or Patient refused 2021 church services? Do [...] of images acquired without order. The clini farnce documentation to support these images can be [...] documented as of this encounter Care Teams Progressive Care Unit Registered Nurse Relationship Specialty Start Date End Date Elsewhere, Pcp PCP - General Family Medicine 12/25/21 documented as of this encounter
--- OUTSIDE RECORDS SUMMARY | 2022-09-14 11:58 | XMS_ITS | Encounter Summary ---
:1965 Author Organization [facility] Address [address] [place] [address] Care Team Providers Name Role Phone Elsewhere, Pcp Primary Care Provider Unavailable Encounter Details Date Type Department Care Team Description 06/15/2022 Ancillary Procedure Department of Demarcus Ernst, Radiology in [place], [place] [address] [place] [address] [place] [address] [phone] (Wo rk) Social History Tobacco Use Types [...] you attend orthodox or Patient refused 2021 buddhist services? Do [...] Modality Spine, Neuroradiology RST LOS, Neuroradiology [facility], N/A Computed Tomography Neuroradiology FLA [...] hardwa re and osteopenia. Demarcus Ernst M.D. IMG CT PROCEDURES documented in this encounter Visit Diagnoses Not on filedocumented in this encounter Additional Health Concerns Assessment Noted Time PHQ-9 Depression Total Score: 16 02/11/2021 12:00 AM C DT documented as of this encounter Care Teams Cardiac Catheterization Technician Relationship Specialty Start Date End Date Elsewhere, Pcp PCP - General Family Medicine 12/25/21 documented as of this encounter
--- OUTSIDE RECORDS SUMMARY | 2022-09-14 11:58 | XMS_ITS | Encounter Summary ---
:1965 Author Organization [facility] Address [address] [place] [address] Care Team Providers Name Role Phone Elsewhere, Pcp Primary Care Provider Unavailable Reason for Visit Reason Comments Scooter prescription Encounter Details Date Type Department Care Team Description 05/19/2022 Clinical Communication Department of Robert Diehl prescription Neurology in [place], [facility] [place], [place] [address] [place] [phone] [place], [place] [phone] (Work) [phone] Social History Tobacco Use Types Packs/Day Years [...] you attend yarsani or Patient refused 2021 jehovah's witness services? [...] yesterday and is currently still admitted to [facility] until tomorrow. I encouraged her to reach [...] Stroke Cerebrovascular Accident Personal History Olivia Pedroza, Supervisor Waterworks 05/19/22 11:51 AM CDT documented in this encounter Plan of Treatment Not on filedocumented as of this encounter Visit Diagnoses Not on filedocumented in this encounter Additional Health Concerns Assessment Noted Time PHQ-9 Depression Total Score: 16 02/11/2021 12:00 AM C DT documented as of this encounter Care Teams Chemical Laboratory Assistant Relationship Specialty Start Date End Date Elsewhere, Pcp PCP - General Family Medicine 12/25/21 documented as of this encounter
--- OUTSIDE RECORDS SUMMARY | 2022-09-14 11:58 | XMS_ITS | Encounter Summary ---
:1965 Author Organization [facility] Address [address] [place] [address] Care Team Providers Name Role Phone Elsewhere, Pcp Primary Care Provider Unavailable Encounter Details Date Type Department Care Team Description 06/15/2022 Ancillary Procedure Department of Demarcus Ernst, Radiology in [place], [place] [address] [place] [address] [place] [address] [phone] (Wo rk) Social History Tobacco Use Types [...] you attend anglican or Patient refused 2021 orthodox services? Do [...] as of this encounter Care Teams Senior Occupational Therapist Relationship Specialty Start Date End Date Elsewhere, Pcp PCP - General Family Medicine 12/25/21 documented as of this encounter
--- OUTSIDE RECORDS SUMMARY | 2022-09-14 11:58 | XMS_ITS | Encounter Summary ---
:1965 Author Organization [facility] Address [address] [place] [address] Care Team Providers Name Role Phone Elsewhere, Pcp Primary Care Provider Unavailable Encounter Details Date Type Department Care Team Description 06/17/2022 Anesthesia Event Department of Radiology, Shantell Verma APRN, GINETTE, DNAP [address] [place] [phone] [facility] [address] [facility] M[facility]. [address] [place] [phone] [place] [id number] [place] [phone] Anesthesia Record Procedure Summary Procedure Name Responsible Anesthesia Start Anesthesia Stop Time Anesthesiologist Time MR BRAIN WITHOUT IV Sapphire Verma APRN, DRYING OVEN TENDER, 06/17/22 1446 1702 CONTRAST DNAP Events Date [...] h andoff to the receiving staff during [facility] we 1. Identified the patient [...] over 3 days 1 patch (TRANSDERM S STOCK PREPARATION OPERATOR) 1 patch Lactated Ringers Free Drip 850 [...] you attend rastafari or Patient refused 2021 jewish services? Do [...] highest level of school Associate degree: occupa melani, 03/24/2021 you have completed or the highest technical, or vocational p rogram degree you have received? Sex Assigned at Date Recorded Female 03/01/2019 10:12 AM CDT documented as of this encounter OR Notes Anesthesia Postprocedure Evaluation - Maritza Friend, NIKKY, DRYING OVEN TENDER, DNAP - 06/17/2022 5:09 PM CDT Patient: Angie Mosquera Procedure Summary Date: 06/17/22 Room / Location: Department of Radiology, [facility], in [place], [place] Anesthesia Start: 1446 Anesthesia Stop: 170 [...] ETT location: oral VL device: glide scope [place] scope blade size: 3 Adult tube [...] r/o compression Location: Department of Radiology, [facility], in [place], [place] Pertinent components of the patient's history [...] with patient /legal guardian or through an director of people. Risks/Benefits/Alternatives of Blood transfusion discussed with patient [...] ETT location: oral VL device: glide scope [place] scope blade size: 3 Adult tube [...] outcome: successful ?? Airway event: no complications Shantellsarbjitberyl Verma DIRECTOR OF GOVERNMENT SALES, DRYING OVEN TENDER, DNAP ANESTHESIA ORDERABLES documented in this encounter [...] documented as of this encounter Care Teams Insole Rasper Relationship Specialty Start Date End Date Elsewhere, Pcp PCP - General Family Medicine 12/25/21 documented as of this encounter
--- OUTSIDE RECORDS SUMMARY | 2022-09-14 11:58 | XMS_ITS | Encounter Summary ---
:[address] [facility] Address [address] [place] [address] Care Team Providers Name Role Phone Elsewhere, Pcp Primary Care Provider Unavailable Encounter Details Date Type Department Care Team Description 05/18/2022 - Hospital Encounter [facility] Mable Polk In fection Of Left Shoulder In Infectious And Parasitic Diseases Classified Elsewhere (HCC) (Primary Dx); 05/20/2022 Hospital, Christianity Cyrus Souza M.D. Shoulder Joint Disorder Left; [place], [facility] [address] [facility] Pain Shoulder Left; Building, [place], [place] Primary Os teoarthritis Shoulder Left Floor [address] [address] [facility] [phone] [place], [place] (Work) [address] Social History Tobacco Use [...] you attend sabianist or Patient refused 2021 adventist services? Do [...] AM CDT DISCHARGE SUMMARY BRIEF OVERVIEW Hospital: [facility] [...] not hesitateto contact Dr. Polk's office at [phone] during regular business hours (8am-5pm M-F). For emergencies on the weekend or after hours, you may contact Dr. Polk's service via the [facility] automatic beading lathe operator at [phone]. Details for your 6 week follow-up appointment [...] to: Cyrus Polk MD Dept of Orthopedics [address], [address] None OUTPATIENT FOLLOW UP For appointment details [...] Polk M.D.Jenna Zaldivar M.D.Markos, James R, M.D. [facility] OR Angie Mosquera was taken [...] THC multivit-min/iron/folic/ Take 1 tablet by 0 [id number] (HAIR, SKIN AND mouth daily. NAILS ADVANCED [...] this encounter Progress Notes Jey Harper P.T., NeriP.T. - 05/20/2022 12:01 PM CDT Physical Therapy [...] mask during therapy session: yes Outcome Measures [facility] Inpatient Short Form: [facility] Basic Mobility (V.2) How much help from [...] 3-5 steps with a railing?: A Little AM-[facility] Basic Mobility (V.2) Raw Score: 18 -[facility] Basic Mobility (V.2) Standardized Score: [...] 6 pm, please page Jam service at [phone] For urgent matters from 6 pm until 6 am, please page [facility] [phone] Jane Nguyen Pharm.D., R.Ph. - 05/19/2022 8:12 [...] due to history of stroke in 2020 -FYI: Furosemide ordered as 40 mg BID which [...] at this time. Jane Nguyen Pharm.D., R.Ph. [phone] Kaushik Cadena M.D. - 05/19/2022 7:34 AM [...] 6 pm, please page Jam service at [phone] For urgent matters from 6 pm until 6 am, please page [facility] at [facility] [phone] Paco Valentine - 05/18/2022 9:47 AM CDT Encounter: AM Admit Deanna Tradition: No adventist affiliation. Ms. Mosquera did not express any spiritual needs at this time. Plan: Will remain available for spiritual care as needed or requested. [phone] ([facility] Rodrigo Preston, Pharm.D., R.Ph. [...] Take 150 mg by mouth every morning. jsnyqttwat-wcwcnopcvrcag-ttqj (ESGIC) 50-325-40 mg per tablet Past Week [...] 1 spray as needed. 5 mg THC multivit-min/iron/folic/juv654 (HAIR, SKIN AND NAILS ADVANCED ORAL) Past [...] (HCC) ??? Nicotine Dependence Unspecified ??? 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 Direct Infection [...] Profile Lives With: Alone Receives Help From: marker machine attendant, Family, Friend(s) ADL Assistance: Required assistance ADL Assistance Comments: Gets help from SALES AND SERVICE ASSOCIATE for her bath/shower 3x/week, and for her meals IADL/Homemaking Assistance: Required assistance IADL/Homemaking Assistance Comments: Gets help for housecleaning Driving: Does not drive Driving Comments: takes her cane and medical alert with her. Occupational Role: On disability Occupational Role Comments: Previously worked at a [employer] and [employer] Prior Mobility/Functional Transfers Level of Ware: Needs assistance Previous Transfer/Mobility Assistance Comments: Patient [...] mask during therapy session: yes Outcome Measures AM-[facility] Inpatient Short Form: AM-[facility] Basic Mobility (V.2) How much [...] 3-5 steps with a railing?: A Little -[facility] Basic Mobility (V.2) Raw Score: 18 -[facility] Basic Mobility (V.2) Standardized Score: 41.05 Interpretation: Clinicians answer the -[facility] Inpatient Short Form based on [...] Nurse Referral Reason: Discharge Planning Primary Language: Mongolian Equity Research Associate Services Used: No Person(s) present during interview: Person(s) Present During Interview: patient History of Present Illness #1 Primary Osteoarthritis Shoulder Left Social History Support System: children, telephonic nurse case manager/foster care social worker, friends/neighbors and home care staff [...] Calm, Oriented Communication: Talks, Understands speaking, Understands Mongolian Shopping: Needs assistance Transportation: Support from family Medication Management: Needs assistance Housekeeping: Needs assistance Meal Prep: Needs assistance Managing Finances: Independent Assistive Devices: Grab bars - wall, Eyeglasses Services/Resources: Other (comment) Agency Name: [facility] Services Provided: SALES AND SERVICE ASSOCIATE services 3x/week, nurse visits every other week Baseline Services/Resources [facility] Phone: Fax: Anticipated Needs Functional Status: Transfer to/from bed, chair, etc., Bathing, Dressing, Grooming/hygeine, Housekeeping, Shopping, Meal preparation, Mobility, Medication set-up/administration, Transportation use (drive car, use taxi/bus) Services/Resources: Other (comment) Agency Name: [facility] Services Provided: SALES AND SERVICE ASSOCIATE services 3x/week, nurse visits every other week Transportation Needs: Support from family Does the patient need discharge transport arranged?: No Ride and Caregiver Arranged: Yes Anticipated Discharge Dest[place] [facility] [place] PLAN Assessment: The library supervisor met with Angie Mosquera to discuss her current hospitalization and home goingneeds. The patient was unaccompanied. The patient was a reliable historian. The role of library supervisor was reviewed. The patient reviewed her prior level of care and support system. The patient receives support from her son, friends and home care staff. Patient reported her son lives in the same apartment as her. She also stated getting SALES AND SERVICE ASSOCIATE services 3x/week and a nurse visits her every other week. The patient described her living environment as a two bedroom apartment. Housekeeping, grocery shopping, meal prep, and other household responsibilities have previously been completed by patient, patient's son and patient's caregiver(s). library supervisor discussed the [facility]'s [facility] based on their home setting, previous needs and responsibilities, homebound status, and relevantassessments with the patient. The patient will be safe and supported to return home with [facility] or previous services noted above when [...] verbalized she is hoping to increase her SALES AND SERVICE ASSOCIATE hours and also inq uired about getting a scooter to assist in her mobility. Patient went on to share she is unstable attimes due to her stroke history. She thought perhaps her neurology doctor would be able to help her get a scooter. RADHA DONAHUE recommended she follow up with the [facility] in regards to wanting more SALES AND SERVICE ASSOCIATE hours. She was also recommended to follow up with her primary care provider to provide durable medical equipment justification for a scooter, as she is currently hospitalized for orthopedic surgery. Patient verbalized understanding. Patient informed RADHA DONAHUE would be reconnecting her SALES AND SERVICE ASSOCIATE services and nurse visits with [facility]. Patient agreeable to RN CM completing this and even provided RN CM the name and contact of her SALES AND SERVICE ASSOCIATE and RN. After reviewing the patient's chart and meeting with the patient, the library supervisor deemed the LACE+/readmission questions were not necessary. [...] directive. PRIMARY SERVICE: - Please provide a non-[facility] health order for resumption of previous [...] dismissal will be provided by family. 3. library supervisor recommended reaching out to family, friends, and neighbors for assistance. 4. library supervisor provided information regarding the dismissal process. 5. library supervisor placed or requested the following hospital-based consult orders and/or referrals:None. 6. library supervisor will continue to assess for homegoing needs with the interdisciplinary team. 7. library supervisor encouraged the patient to reach out with [...] falls. Patient will discharge to home with [facility] reconnect. Identify possible barriers to meeting goals/advancing plan of care: none End of Shift Summary: Patient stayed on schedule with prn pain meds (Tramadol and oxycodone) throughout the shift. Encouraged using ice packs to help with pain and swelling. Patient's primapore dressing was changed to Aquacell AG and is clean, dry and intact. Patient has baseline numb/tingling, moderate income tax adjuster, skin pink and warm with +2 pulses. Patient expects RN from [facility] to visit on Tuesday, May 24. Patient's friend will transport home. Medications including: oxycodone and tramadol were picked up [facility]. documented in this encounter OR Notes Op Note - Cyrus Polk M.D. - 05/18/2022 5:54 PM CDT STAFF: Cyrus Polk M.D. RESIDENT: Jenna Zaldivar M.D. PRE-OPERATIVE DIAGNOSIS Left dislocated reverse arthroplasty. POST-OPERATIVE DIAGNOSIS Left dislocated reverse arthroplasty. A bilingual sales assistant actively participated and was necessary for [...] glenosphere, placement new humeral stem and tray, [id number] Cyrus Polk M.D. CT CT Job ID: [id number] documented in this encounter Miscellaneous Notes Hospital Course - Kaushik Cadena M.D. - 05/19/2022 12:18 PM CDT Surgery Information This Encounter Past Procedures (05/19/2021 to Today) Date Procedures Providers Location 05/18/2022 ARTHROPLASTY REPLACEMENT TOTAL SHOULDER. Cyrus Polk M.D.Wasserburger, Jory N, M.D.Markos, James R, M.D. [facility] OR Angie Mosquera was [...] with Differential, Blood (05/20/2022 3:43 AM CDT) [facility] Method Time Signature Hemoglobin 8.4 (L) 11.6 [...] [facility] - [address] [place], [place] [address] [facility] [place] [address] Laboratories-[facility] [address] (ABNORMAL) CBC with Differential, Blood (05/19/2022 3:26 AM CDT) [facility] Method Time Signature Hemoglobin 7.6 (L) 11.6 [...] AM 05/19/20 4:07 Venous) CDT AM CDT Kuashik Cadena M.D. LAB BLOOD ADD-ON Performing Organization Address City/State/ZIP Code Phon e Number [facility] - [facility] [address] [place], [place] [address] [facility] [place] [place] [address] [facility] [address] [facility] (ABNORMAL) Basic Metabolic Panel (05/19/2022 3:26 AM CDT) athologist Signature Potassium, S 4.2 [...] [facility] [address] [place], [place] [address] [facility] [place] [address] [facility] [address] DX Shoulder Left [...] postoperative purposes. Jenna NIELSON DIAGNOSTIC IMAGING PROCE [facility] Surgical Pathology, Frozen Lab (05/18/2022 1:04 PM CDT) Component Value Ref Test Analysis Performed At [facility] Method Time Signature 05/20/2022 METH 11:46 AM [...] Number [facility] - [address] [place] [address] [facility] [place] [address] [facility] [address] [facility] Bacteria Cult, Aerobe / Anaerobe+Susc (05/18/2022 1:03 PM CDT) [facility] gist Method Time Signature Bacteria Cult, No growth 06/01/2022 DTL Aerobe/Anaerob after 14 6:02 PM CDT e+Susc days of incubation. Specimen Anatomical Collection Method Collection Time Receive d Time (Source) Location / / Volume Laterality Shoulder, Left 05/18/2022 1:03 PM 022 5:21 CDT PM CDT Comment: Specimen Source Site: Tissue #1 Narrative [facility] - [facility] - 06/01/2022 6:02 PM CDT Bacterial Culture: Placed in Bactec aero bic and Bactec anaerobic bottles Cyrus Polk M.D. LAB MICROBIOLOGY - GENERAL O RDERABLES Performing Organization Address City/[facility]/ZIP [facility] Phon e Number [facility] - [address] [place], [place] [address] [place] [address] [facility] 200 [facility] Bacteria Cult, Aerobe / Anaerobe+Susc (05/18/2022 1:03 PM CDT) [facility] Method Time Signature Bacteria Cult, No growth 06/01/2022 DTL Aerobe/Anaerob after 14 6:02 PM CDT e+Susc days of incubation. Specimen Anatomical Collection Method Collection Time Receive d Time (Source) Location / / Volume Laterality Shoulder, Left 05/18/2022 1:03 PM 022 5:12 CDT PM CDT Comment: Specimen Source Site: Tissue #3 Narrative [facility] - 06/01/2022 6:02 PM CDT Bacterial Culture: Placed in Bactec aero bic and Bactec anaerobic bottles Cyrus Polk M.D. LAB MICROBIOLOGY - GENERAL O RDERABLES Performing Organization Address City/[facility]/ZIP Code Phon e Number [facility] - [address] [place], [place] [address] [place] [address] [facility] 200 [facility] Bacteria Cult, Aerobe / Anaerobe+Susc (05/18/2022 1:03 PM CDT) [facility] Method Time Signature Bacteria Cult, No growth 06/01/2022 DTL Aerobe/Anaerob after 14 6:02 PM CDT e+Susc days of incubation. Specimen Anatomical Collection Method Collection Time Receive d Time (Source) Location / / Volume Laterality Shoulder, Left 05/18/2022 1:03 PM 022 5:07 CDT PM CDT Comment: Specimen Source Site: Tissue #2 Narrative [facility] - 06/01/2022 6:02 PM CDT Bacterial Culture: Placed in Bactec aero bic and Bactec anaerobic bottles Cyrus Polk M.D. LAB MICROBIOLOGY - GENERAL O RDERABLES Performing Organization Address City/[facility]/ZIP Code Phon e Number [facility] - [address] [place], [place] [address] [facility] [place] [address] [facility] [address] documented in this encounter Visit Diagnoses Diagnosis Primary Osteoarthritis Shoulder Left - P rimary Shoulder Joint Disorder Left Pain Shoulder Left Direct Infection Of Left Shoulder In Inf ectious And Parasitic Diseases Classified Elsewhere (HCC) Primary Osteoarthritis Shoulder Left documented in this encounter Administered [...] 05/19/2022 05/20/2022 acetaminophen tablet 1,000 mg (TYLENOL) 2410 (Given - Provider: Corrie Toscano R.N.)8995 (Given - Provider: Catalina Mccloud R.N.) 0511 (Given - Provider: Catalina Mccloud R.N.)1153 (Given - Provider: Isaura Vu R.N.)1725 (Given - Provider: Jonny ThorneS.N., R.N., O.C.N.) 0125 (Given - Provider: Jonny PérezSBrittonN., R.N.)0552 (Given - Provider: Jere Levy RBetsy)1206 [...] 2050 (Given - Prov ider: Bettie Macias RBetsy) 222 (Given - Provider: Candace Lanza, Carole.S.N., R. N., O.C.N.) 80 mg, oral, Daily at bedtime, First dose on Tue05/18/22 at 2100 buPROPion XL 24 hr tablet 150 mg (WELLBUTRIN XL) 0849 (Given - Provider: Isaura Vu R.German.) 0908 (Given - Provider: Isaura Vu R.N.) [...] 1240 (Given - Provider: Ihsan Townsend APRN, LINE WELDER) 2,000 mg (rounded from 1,652.5 mg = [...] Isaura Vu R.N.)2224 (Given - Provider: Jonny ThorneS.N., R.N., O.C.N. - Comment: pt request) 0907 [...] 2 mg (REQUIP) 2050 (Given - Provider: Parvin De La Rosa R.N.) 222 (Given - Provider: Jonny ThorneSBrittonNBritton, R.N., O.C.N. - Comment: pt request) 2 mg, oral, Daily at bedtime, First dose on Tue05/18/22 at 2100 sennosides-docusate sodium 8.6-50 mg per tablet 1 tabl et (SENOKOT-S) 2051 (Given - Provider: Bettie Macias R.N.) 0849 (Given - Provider: Isaura Vu R.N.)2224 (Given - Provider: Jonny ThorneSBetsy, R.N., O.C.N. - Comment: pt request) 0908 (Given - Provider: Isaura Vu R.N.) 1 tablet, oral, 2 times daily, First dos e on Tue05/18/22 at 2100, Do not give if patient has diarrhea. tranexamic acid in NaCl IVPB 1,000 mg (CYKLOKAPRON) (C OMPLETED) 1240 (Given - Provider: Ihsan Townsend APRN, LINE WELDER) 1,000 mg (1 g), intravenous, at 300 [...] RBetsy) 0848 (Given - Provider: Isaura Vu R.N.)2224 [...] PERLES) 0501 (Given - Provider: Catalina Mccloud R.German.)2233 (Given - Provider: Candace A Loveless, M.S.N., [...] Provider: Melissa Garcia R.N.)2241 (Given - Provider: Sen Thorne., R.N., O.C.N.) 400 mg of calcium, oral, Every 2 hour SC N, indigestion, Starting on Tue05/18/22 at 1608, [...] Corrie Toscano R.N.) 0504 (Given - Provider: Sharifa ArcherNBritton) 092 1 (Given - Provider: Isaura Vu [...] 1120 (New Bag - Provider: Cristy Rosario RRebekah.) 20 mL/hr, intravenous, Once as needed, t o keep vein open, Starting on Tue05/18/22 at 1055, For 1 dose, Pre-Op midazolam (PF) injection 1 mg (VERSED) (CANCELED) 1119 (Given - Provider: Cristy Rosario RBrittonNBritton) 1 mg, intravenous, Every 2 min [...] institution). ondansetron (PF) injection 4 mg (ZOFRAN) 2124 (Given - Provider: Jere Levy R.N.) 1502 [...] Toscano RBrittonN.)2339 (Given - Provider: Catalina Mccloud R.N.) 0339 (Given - Provider: Catalina Mccloud [...] Garcia R.N.) 123 (See Alternative - Provider: Carole Pérez.S.NBritton, R.N.)05 (See Alternative - Provider: Jere Levy R.N.)1004 [...] 123 (Given - Provider: Rafal Waller M.S.NBritton, R.NBritton)52 (Given - Provider: Jere Levy R.N.)100 (Given - Provider: Isaura Vu R.N. - [...] over 3 days 1 patch (TRANSDERM S PRECONSTRUCTION MANAGER) (CANCELED) 1118 (Medication Applied - Provider: Cristy [...] 50 mg (ULTRAM)(Linked Group 2) 2050 (Geronimo iven - Provider: Bettie Macias R.N.) 0612 (See Alternative - Provider: Sal Mccloud RBrittonNBritton)1209 (See Alternative - Provider: Isaura Vu R.N.) 0124 (See Alternative - Provider: Rafal Waller, M.S.N., R.N.)0732 (See Alternative - Provider: Isaura Vu R.N.)1359 (See Alternative - Provider: Isaura H Mirella, R.N.) 50 mg, oral, Every 6 hours [...] as of this encounter Care Teams Supervisor Real Estate Office Relationship Specialty Start Date End Date Elsewhere, Pcp PCP - General Family Medicine 12/25/21 documented as of this encounter
--- OUTSIDE RECORDS SUMMARY | 2022-09-14 11:59 | XMS_ITS | Encounter Summary ---
:1965 Author Organization [facility] Address [address] [place] [id number] Care Team Providers Name Role Phone Elsewhere, Pcp Primary Care Provider Unavailable Encounter Details Date Type Department Care Team Description 05/17/2022 Hospital Encounter Department of Alfredo Herrera Preo perative Exam Laboratory Medicine O.P.A.-C. and Pathology, [place] [address] [facility], in [place], [place] [address] [place] [address] [place], [place] (Work) [phone] Social History Tobacco Use Types Packs/Day Years [...] you attend denominational or Patient refused 2021 jainism services? Do [...] THC multivit-min/iron/folic/ Take 1 tablet by 0 [id number] (HAIR, SKIN AND mouth daily. NAILS ADVANCED [...] CDT Manual Absolute 2.24 1.56 - 05/17/2022 [facility] Neutrophil Count 6.45 1:04 PM CDT [...] Reviewed by: Tech 05/17/2022 1:04 PM CDT [facility] Specimen Anatomical Collection Method Collection Time Receive d Time (Source) Location / / Volume Laterality Blood 05/17/2022 10:50 05/17/2022 AM CDT 11:30 AM CDT Alfredo Kamara LAB BLOOD ADD-ON Performing Organization Address City/State/ZIP Code Phon e Number [facility] - [address] [place], [place] [address] [place] [address] Laboratories-[facility] [address] Basic [...] 05/17/2022 DTL Black/ mL/min/BSA 12:12 PM CDT Bolivian Comment: ----ADDITIONAL INFORMATION---- Estimated GFR calculated using [...] Address City/State/ZIP Code Phon e Number [facility] - [address] [place], [place] [address] [facility] [place] [address] Laboratories-[facility] [address] Type and Screen (with reflex Antibody ID) (05/17/2022 10:50 AM CDT) [facility] gist Method Time Signature ABORh A Neg [...] Address City/State/ZIP Code Phon e Number [facility] - [address] [place] [address] [facility] [place] [address] [facility] [address] [facility] (ABNORMAL) CBC with Differential, Blood (05/17/2022 10:50 AM CDT) [facility] gist Method Time Signature Hemoglobin 9.2 [...] Address City/State/ZIP Code Phon e Number [facility] - [address] [place], [place] [address] [facility] [place] [address] [facility] [address] documented in this encounter Visit Diagnoses Diagnosis Preoperative Exam documented in this encounter Additional Health Concerns Infection Onset Date Last Indicated Resolved Time COVID19 Pending 05/17/2022 05/17/2022 05/17/2022 2:34 PM CDT Assessment Noted Time PHQ-9 Depression Total Score: 16 02/11/2021 12:00 AM C DT documented as of this encounter Care Teams Pool Cleaner Relationship Specialty Start Date End Date Elsewhere, Pcp PCP - General Family Medicine 12/25/21 documented as of this encounter
--- OUTSIDE RECORDS SUMMARY | 2022-09-14 11:59 | XMS_ITS | Encounter Summary ---
:1965 Author Organization [facility] Address [address] [place] [address] Care Team Providers Name Role Phone Elsewhere, Pcp Primary Care Provider Unavailable Reason for Visit Reason Comments Discharge Planning Discharge Planning Encounter Details Date Type Department Care Team Description 05/06/2022 Clinical Communication Department of Kaushik Portillo Di scharge Planning Orthopedic Surgery R.N. (Discharge in [place] [address] [facility]) [place], [place] [address] [place] [address] [place], [place] [phone] [address] (Work) [phone] Social History Tobacco Use Types Packs/Day Years [...] you attend islam or Patient refused 2021 church services? Do [...] or the highest technical, or vocational p JackBejorge degree you have received? Sex Assigned at [...] home. The role of the caregiver and frontload driver will be filled by the patient's [...] to her history of falling. I encourage Ortho.Occupational Safety And Health Manager to contact this patient, prior to [...] documented as of this encounter Care Teams Supercharge Repair Supervisor Relationship Specialty Start Date End Date Elsewhere, Pcp PCP - General Family Medicine 12/25/21 documented as of this encounter
--- OUTSIDE RECORDS SUMMARY | 2022-09-14 11:59 | XMS_ITS | Encounter Summary ---
:1965 Author Organization [facility] Address [address] [place] [address] Care Team Providers Name Role Phone Elsewhere, Pcp Primary Care Provider Unavailable Encounter Details Date Type Department Care Team Description 05/03/2022 Hospital Encounter Department of Laboratory Shauna Rubin, Anemia Medicine and Pathology, [facility] in [place] [address] [place] [phone] (Wo rk) Social History Tobacco Use Types [...] you attend hinduism or Patient refused 2021 latter day services? [...] THC multivit-min/iron/folic/ Take 1 tablet by 0 eyp058 (HAIR, SKIN AND mouth daily. NAILS ADVANCED [...] 05/03/2022 Venous) AM CDT 10:53 AM CDT [facility] - 05/03/2022 11:47 AM CDT Specimen Information: Specimen ID: [id number] Specimen Type: Blood Specimen Collection Start Date: 10:11 AM Specimen Received Date: 05/03/2022 10:53 AM Specimen ID: [id number] Specimen Type: Blood Specimen Collection Start Date: 10:11 AM Specimen Received Date: 05/03/2022 10:53 AM Specimen ID: [id number] Specimen Type: Blood Specimen Collection Start Date: 2 10:11 AM Specimen Received Date: 05/03/2022 10:53 AM Specimen ID: [id number] Specimen Type: Blood Specimen Collection Start Date: 2 10:11 AM Specimen Received Date: 05/03/2022 10:32 AM Specimen ID: [id number] Specimen Type: Blood Specimen Collection Start Date: 2 10:11 AM Specimen Received Date: 05/03/2022 11:44 AM Araceli Doyle APRNNBrittonP., M.S.N. LAB BLOOD ADD-ON Performing Organization Address City/State/ZIP Code Phon e Number [facility] - [address] [place], [place] [address] [place] [address] Laboratories-[facility] [address] documented in this encounter Visit Diagnoses Diagnosis Anemia documented in this encounter Additional Health Concerns Assessment Noted Time PHQ-9 Depression Total Score: 16 02/11/2021 12:00 AM C DT documented as of this encounter Care Teams Grocery Caddy Relationship Specialty Start Date End Date Elsewhere, Pcp PCP - General Family Medicine 12/25/21 documented as of this encounter
--- OUTSIDE RECORDS SUMMARY | 2022-09-14 11:59 | XMS_ITS | Encounter Summary ---
:1965 Author Organization [facility] Address [address] [place] [address] Care Team Providers Name Role Phone Elsewhere, Pcp Primary Care Provider Unavailable Reason for Visit Reason Comments Pre-visit Intake Encounter Details Date Type Department Care Team Description 05/12/2022 Clinical Communication Department of Cyrus Polk e-visit Intake Orthopedic Surgery Lilian Souza in [address] [place] [address] [place], [place] [phone] (Work) [phone] Social History Tobacco Use Types Packs/Day Years [...] you attend mandaeism or Patient refused 2021 yarsanism services? Do [...] as of this encounter Care Teams Automatic Beam Warper Tender Relationship Specialty Start Date End Date Elsewhere, Pcp PCP - General Family Medicine 12/25/21 documented as of this encounter
--- OUTSIDE RECORDS SUMMARY | 2022-09-14 11:59 | XMS_ITS | Encounter Summary ---
:1965 Author Organization [facility] Address [address] [place] [address] Care Team Providers Name Role Phone Elsewhere, Pcp Primary Care Provider Unavailable Encounter Details Date Type Department Care Team Description 05/18/2022 Anesthesia Event RST SEBAS MORAN OR Kaushik Carpenter, [address] [facility] [place] [address] [address] [facility] [phone] [place] [phone] (Wo rk) Anesthesia Record Procedure Summary Procedure [...] h andoff to the receiving staff during [facility] we 1. Identified the patient [...] by Placement Time: 1220 Ihsan Patel APRN, ROBOTIC MAINTENANCE TECHNICIAN Ihsan Townsend APRN, (created via procedure ROBOTIC MAINTENANCE TECHNICIAN documentation); Mask Ventilation: Easy mask; Type: Standard [...] you attend mandaeism or Patient refused 2021 quaker services? Do [...] Procedure Summary Date: 05/18/22 Room / Location: [place] [address] / [facility] [place], [place] Anesthesia Start: 1214 Anesthesia Stop: 1415 [...] ETT location: oral VL device: glide scope [place] scope blade size: 3 Adult tube size: [...] Anesthesia & H&P Assessment Procedure Summary Date/Time: 05/18/221221 Procedure: ARTHROPLASTY REPLACEMENT TOTAL SHOULDER. 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 Location: [place] [address] / [facility] [place], [place] Providers: Cyrus Polk M.D. 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 The use of blood products not [...] procedure ar e in the results section. [place] US GUIDE PLC NDL Routine 05/18/2022 11:24 Resu lts for this AM CDT procedure are i n the results section. [place] INJ ANES BRACHIAL Routine 05/18/2022 11:24 Res [...] ETT location: oral VL device: glide scope [place] scope blade size: 3 Adult tube size: [...] no complications Kaushik Carlos, BBritton ANESTHESIA ORDERABLES [place] INJ ANES BRACHIAL PLEX, [place] US GUIDE PLC NDL, ANE NERVE BLOCK WITH ULTRASOUND (05/18/2022 11:24AM [...] documented as of this encounter Care Teams Annealer Relationship Specialty Start Date End Date Elsewhere, Pcp PCP - General Family Medicine 12/25/21 documented as of this encounter
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
--- OUTSIDE RECORDS SUMMARY | 2022-09-14 11:59 | XMS_ITS | Encounter Summary ---
:[address] [facility] Address [address] [place] [address] Care Team Providers Name Role Phone Elsewhere, Pcp Primary Care Provider Unavailable Reason for Referral Outpatient (Routine) - Closed Specialty Diagnoses / Procedures Referred By Contact Refer red To Contact Social Work Diagnoses Pain Shoulder Left Preoperative Exam Jenna Zaldivar [place] M.D. Referral ID Status Reason Start Date Expiration Date Visits Requ ested Visits Authorized [id number] Closed 05/10/2022 05/10/2023 1 1 Reason for Visit Reason Comments Pre-visit Testing Orders Encounter Details Date Type Department Care Team Description 05/07/2022 Clinical Communication Department of Jam, Pre- visit Testing Orthopedic Surgery Cyrus Souza M.D. Orders in [address] [place] [phone] [place], [place] [phone] (Work) [phone] Social History Tobacco Use Types Packs/Day Years [...] you attend protestant or Patient refused 2021 caodaism services? Do you belong to any clubs or No 05/17/2022 organizations such as protestant groups, D and K interprisess, fraBikanta or athletic groups, or school groups? How [...] Priority Associated Diagnoses [facility] Social Work - Outpatient Referral Routine Pain Shoulde r Left Expected: General consult Preoperative Exam 022 (clinic) (Approximate), Expires: 08/07/2023 documented as of this encounter Visit Diagnoses Diagnosis Pain Shoulder Left - Primary Preoperative Exam documented in this encounter Additional Health Concerns Assessment Noted Time PHQ-9 Depression Total Score: 16 02/11/2021 12:00 AM C DT documented as of this encounter Care Teams Unit Secretary Relationship Specialty Start Date End Date Elsewhere, Pcp PCP - General Family Medicine 12/25/21 documented as of this encounter
--- OUTSIDE RECORDS SUMMARY | 2022-09-14 11:59 | XMS_ITS | Encounter Summary ---
:1965 Author Organization [facility] Address [address] [place] [address] Care Team Providers Name Role Phone Elsewhere, Pcp Primary Care Provider Unavailable Reason for Visit Outpatient (Routine) - Closed Specialty Diagnoses / Procedures Referred By Contact Refer red To Contact Diagnoses Painful Total Joint Arthroplasty Initial ([facility]) Alfredo Herrera [place] Procedures ORS US-Guided aspiration/injection O.P.A.-C. [address] [place] [phone] Referral ID Status Reason Start Date Expiration Date Visits Requ ested Visits Authorized [id number] Closed 04/02/2022 04/02/2023 1 1 Encounter Details Date Type Department Care Team Description 04/14/2022 Procedure visit Department of Jey Monzon To beto Joint Orthopedic Surgery in Lilian Celaya Arthroplasty Initial [place], [place] [address] [place] [address] ([facility]) [address] [place] [phone] Social History Tobacco Use Types Packs/Day Years [...] you attend congregational or Patient refused 2021 shinto services? Do you belong to any clubs or No 05/17/2022 organizations such as congregational groups, unions, fraCurb Call or athletic groups, or school groups? How [...] was performed by Carmelo Guo M.D., M.S. ([phone]). HISTORY: The patient was recently evaluated for [...] and sterile ultrasound gel were used. Machine: [employer] Transducer: 6-15 MHz linear transducer. Patient position: [...] Mosquera Barriers to learning: None Preferred language: Jamaican Learning preferences include: Seeing and doing. Discussed: [...] QREADS: click the 'Dept Filter' button in [employer], then the 'Clear (ShowAll)' button, then OK. [...] procedure a re in the results section. GA ARTHCS ASP/INJ Routine 04/14/2022 9:30 AM Painful Total Aliza nt Results for this MJR JT W US CDT Arthroplasty Initial procedu re are in (HCC) the results section. documented in this encounter Results Bacteria Cult, Aerobe / Anaerobe+Susc (04/14/2022 9:35 AM CDT) [facility] Method Time Signature Bacteria Cult, No growth 04/28/2022 DT Aerobe/Anaerob after 14 11:02 AM CDT e+Susc days of incubation. Specimen Anatomical Collection Method Collection Time Receive d Time (Source) Location / / Volume Laterality Synovial Fluid, 04/14/2022 9:35 AM 2021 Left Shoulder CDT 10:18 AM CDT Comment: Specimen Source Site: Aspirate Narrative [facility] - 04/28/2022 11:02 AM CDT Bacterial Culture: Received Bactec aerob ic and Bactec anaerobic bottles Alfredo Kamara LAB MICROBIOLOGY - GENERAL O RDERABLES Performing Organization Address City/State/ZIP Code Phon e Number [facility] - [address] [place] [address] [facility] [place] [address] [facility] 200 [facility] Cell Count and Differential, Body Fluid (04/14/2022 9:35 AM CDT) [employer] Method Time Signature Fluid Type Right 04/14/2022 [...] Its performance characteri stics were determined by [facility] in a manner co nsistent with CLIA [...] City/State/ZIP Code Phon e Number [facility] - [address] [place], [place] [address] [place] [address] [facility] [address] [place] ARTHCS ASP/INJ MJR JT W US (04/14/2022 [...] as of this encounter Care Teams Rail Technician Relationship Specialty Start Date End Date Elsewhere, Pcp PCP - General Family Medicine 12/25/21 documented as of this encounter
--- OUTSIDE RECORDS SUMMARY | 2022-09-14 11:59 | XMS_ITS | Encounter Summary ---
:1965 Author Organization [facility] Address [address] [place] [address] Care Team Providers Name Role Phone Elsewhere, Pcp Primary Care Provider Unavailable Reason for Referral Outpatient (Routine) - Closed Specialty Diagnoses / Procedures Referred By Contact Refer red To Contact Anesthesiology Diagnoses Anemia Shauna Rubin [facility] C.N.[place], M.S.N. [address] [place] [phone] Referral ID Status Reason Start Date Expiration Date Visits Requ ested Visits Authorized [id number] Closed 04/22/2022 04/22/2023 1 1 Encounter Details Date Type Department Care Team Description 04/22/2022 Orders Only Preoperative Evaluation Shauna Rubin (Primary Dx) Center in [facility], [place], [place] M.S.N. [address] [place] [address] [place] [phone] [place], [place] [phone] Social History Tobacco Use Types Packs/Day Years [...] you attend anabaptism or Patient refused 2021 amish services? Do [...] 11:47 AM CDT Specimen Information: Specimen ID: [id number] Specimen Type: Blood Specimen Collection Start Date: 10:11 AM Specimen Received Date: 05/03/2022 10:53 AM Specimen ID: [id number] Specimen Type: Blood Specimen Collection Start Date: 10:11 AM Specimen Received Date: 05/03/2022 10:53 AM Specimen ID: [id number] Specimen Type: Blood Specimen Collection Start Date: 10:11 AM Specimen Received Date: 05/03/2022 10:53 AM Specimen ID: [id number] Specimen Type: Blood Specimen Collection Start Date: 2 10:11 AM Specimen Received Date: 05/03/2022 10:32 AM Specimen ID: [id number] Specimen Type: Blood Specimen Collection Start Date: 2 10:11 AM Specimen Received Date: 05/03/2022 11:44 AM Araceli Doyle APRNNCristiana, M.S.N. LAB BLOOD ADD-ON Performing Organization Address City/State/ZIP Code Phon e Number [facility] - [address] [place], [place] [address] [facility] [place] [address] [facility] [address] documented in this encounter Visit Diagnoses Diagnosis Anemia - Primary Anemia documented in this encounter Additional Health Concerns Assessment Noted Time PHQ-9 Depression Total Score: 16 02/11/2021 12:00 AM C DT documented as of this encounter Care Teams Glove Operator Relationship Specialty Start Date End Date Elsewhere, Pcp PCP - General Family Medicine 12/25/21 documented as of this encounter
--- OUTSIDE RECORDS SUMMARY | 2022-09-14 11:59 | XMS_ITS | Encounter Summary ---
:1965 Author Organization [facility] Address [address] [place] [address] Care Team Providers Name Role Phone Elsewhere, Pcp Primary Care Provider Unavailable Reason for Visit Outpatient (Routine) - Closed Specialty Diagnoses / Procedures Referred By Contact Refer red To Contact Anesthesiology Diagnoses Anemia Shauna Rubin APRN, [facility] C.N.P., M.S.N. [address] [place] [phone] Referral ID Status Reason Start Date Expiration Date Visits Requ ested Visits Authorized [id number] Closed 04/22/2022 04/22/2023 1 1 Encounter Details Date Type Department Care Team Description 05/03/2022 Comprehensive Visit Preoperative Evaluation Shauna Gomez, NIKKY, C.N.P., M.S.N. [address] [place] [phone] [facility] in [place], Peter Tse R.N. [address] [place] [phone] [place] [address] [place] [phone] Social History Tobacco Use Types Packs/Day [...] 05/17/2022 organizations such as presybeterian groups, unions, fraRingDNA or athletic groups, or school groups? How [...] iron in the past when living in [place] (approximately 5-6 years ago). Therapy Plan: With the planned ARTHROPLASTY REPLACEMENT TOTAL SHOULDER on 05/18/2022 the patient would meet criteria based on the Preoperative Anemia Treatment Algorithm and RN Anemia Protocol to receive 1 x 1,000 mgdose of IV iron dextran. Patient agrees with this and would like this administered @ [facility]. I provided the patient with the education pamphlet [id number] Treating Anemia Before Surgery andanswered her questions [...] as of this encounter Care Teams Machine Tool Technology Instructor Relationship Specialty Start Date End Date Elsewhere, Pcp PCP - General Family Medicine 12/25/21 documented as of this encounter
--- OUTSIDE RECORDS SUMMARY | 2022-09-14 11:59 | XMS_ITS | Encounter Summary ---
:1965 Author Organization [facility] Address [address] [place] [address] Care Team Providers Name Role Phone Elsewhere, Pcp Primary Care Provider Unavailable Reason for Referral Outpatient (Routine) - Closed Specialty Diagnoses / Procedures Referred By Contact Refer red To Contact Orthopedic Surgery Diagnoses Pain Shoulder Left Preoperative Exam [facility] 200 [place] [address] Referral ID Status Reason Start Date Expiration Date Visits Requ ested Visits Authorized [id number] Closed 04/22/2022 04/22/2023 1 1 Reason for Visit Reason Comments pre op orders Encounter Details Date Type Department Care Team Description 04/22/2022 Clinical Communication Department of Cyrus Polk op orders Orthopedic Surgery in Lilian Souza [place], [place] [address] [place] [address] [place] [phone] Social History Tobacco Use Types Packs/Day Years [...] 05/17/2022 DTL Black/ mL/min/BSA 12:12 PM CDT Serbian Comment: ----ADDITIONAL INFORMATION---- Estimated GFR calculated using [...] [facility] - [address] [place], [place] [address] [facility] [place] [address] Laboratories-[facility] [address] Type and Screen (with [...] e Number [facility] - [address] [place] [address] [facility] [place] [address] Laboratories-[facility] [address] [facility] (ABNORMAL) CBC with Differential, Blood (05/17/2022 10:50 AM CDT) [facility] Method Time Signature Hemoglobin 9.2 (L) 11.6 [...] e Number [facility] - [address] [place] [address] [facility] [place] [address] [facility] 200 [facility] SARS Coronavirus 2, Molecular Detection, PCR, Varies Asymptomatic (05/17/2022 10:26 AM CDT) [facility] Method Time Signature COVID-19, Swab, 05/17/2022 [...] ----ADDITIONAL INFORMATION---- This RT-PCR test using the Be Here SARS-Co V-2 Assay ( [employer] performed on the Be Here Two Module System has received Emergency Use Authorization (EUA) by the U.S. Food and Drug Administration, and is modified from the arboriculture instructor's instructions with a bridging study. Performance characteristics were verifie d by [facility] in a manner consistent with CLIA requirements. Visit the CDC website: https://www.cdc.g ov/coronavirus/ for the most recent guidelines on [facility] virus testing. Fact Sheet for Healthcare Providers: https://www.fda.gov/media/700042/downloa d Fact Sheet for Patients: https://www.fda.gov/media/750031/downloa d Specimen Anatomical Collection Method Collection Time Receive d Time (Source) Location / / Volume Laterality Varies 05/17/2022 10:26 05/17/2022 (Nasopharynx) AM CDT 10:52 AM CDT Alfredo Kamara LAB MICROBIOLOGY - GENERAL O MARY Performing Organization Address City/State/ZIP Code Phon e Number [facility] - [address] [place], [place] [address] [facility] [place] [address] Laboratories-[facility] [address] documented in this encounter Visit Diagnoses Diagnosis Pain Shoulder Left - Primary Preoperative Exam documented in this encounter Additional Health Concerns Assessment Noted Time PHQ-9 Depression Total Score: 16 02/11/2021 12:00 AM C DT documented as of this encounter Care Teams Manufacturing Engineer Paint Relationship Specialty Start Date End Date Elsewhere, Pcp PCP - General Family Medicine 12/25/21 documented as of this encounter
--- OUTSIDE RECORDS SUMMARY | 2022-09-14 11:59 | XMS_ITS | Encounter Summary ---
:1965 Author Organization [facility] Address [address] [place] [address] Care Team Providers Name Role Phone Elsewhere, Pcp Primary Care Provider Unavailable Reason for Visit Reason Comments pre op orders Encounter Details Date Type Department Care Team Description 04/02/2022 Clinical Communication Department of Cyrus Polk op orders Orthopedic Surgery in Lilian Souza [place], [place] [address] [place] [address] 200 [place] [address] [phone] Social History Tobacco Use Types Packs/Day Years [...] you attend mormon or Patient refused 2021 yazidi services? Do [...] as of this encounter Care Teams Manager Construction Relationship Specialty Start Date End Date Elsewhere, Pcp PCP - General Family Medicine 12/25/21 documented as of this encounter
--- OUTSIDE RECORDS SUMMARY | 2022-09-14 11:59 | XMS_ITS | Encounter Summary ---
:1965 Author Organization [facility] Address [address] [place] [address] Care Team Providers Name Role Phone Elsewhere, Pcp Primary Care Provider Unavailable Encounter Details Date Type Department Care Team Description 04/14/2022 Hospital Encounter Department of Alfredo Herrera Total Shoulder Replacement Status Post Left; Laboratory Medicine A, O.P.A.-C. Painful Total Joint Arthroplasty Initial (HCC) and Pathology, [address] [place] [address], [place] [facility] [address] [place] [phone] [place] [address] (Work) [place], [place] [phone] (Fax) [phone] Social History Tobacco Use Types Packs/Day Years [...] you attend restorationist or Patient refused 2021 tenriism services? Do [...] THC multivit-min/iron/folic/ Take 1 tablet by 0 [id number] (HAIR, SKIN AND mouth daily. NAILS ADVANCED [...] CDT Arthroplasty Initial proc edure are in ([facility]) the results section. C-REACTIVE PROTEIN Routine 04/14/2022 [...] BLOOD ADD-ON Performing Organization Address City/[facility] Phon e Number [facility] - 200 [place], [place] [address] [facility] [place] [address] Laboratories-[facility] 200 [facility] (ABNORMAL) CBC without [...] BLOOD ADD-ON Performing Organization Address City/[facility]/ZIP Code Phon e Number [facility] - [address] [place], [place] [address] [facility] [place] [address] Laboratories-[facility] [address] documented in this encounter Visit Diagnoses Diagnosis Arthroplasty Total Shoulder Replacement Status Post Left Painful Total Joint Arthroplasty Initial (HCC) documented in this encounter Additional Health Concerns Assessment Noted Time PHQ-9 Depression Total Score: 16 02/11/2021 12:00 AM C DT documented as of this encounter Care Teams Internal Control Consultant Relationship Specialty Start Date End Date Elsewhere, Pcp PCP - General Family Medicine 12/25/21 documented as of this encounter
--- OUTSIDE RECORDS SUMMARY | 2022-09-14 11:59 | XMS_ITS | Encounter Summary ---
:1965 Author Organization [facility] Address [address] [place] [address] Care Team Providers Name Role Phone Elsewhere, Pcp Primary Care Provider Unavailable Reason for Referral MRI/CAT/PET Scan (Routine) - Closed Specialty Diagnoses / Procedures Referred By Contact Refer red To Contact Radiology Diagnoses Painful Total Joint Arthroplasty Initial ([facility]) Alfredo Herrera [place] Procedures CT Shoulder Left without IV Contrast O.P.A.-C. [address] [place] [phone] Referral ID Status Reason Start Date Expiration Date Visits Requ ested Visits Authorized [id number] Closed 04/02/2022 04/02/2023 1 1 Reason for Visit MRI/CAT/PET Scan (Routine) - Closed Specialty Diagnoses / Procedures Referred By Contact Refer red To Contact Radiology Diagnoses Painful Total Joint Arthroplasty Initial ([facility]) Alfredo Herrera [place] Procedures CT Shoulder Left without IV Contrast O.P.A.-C. [address] [place] [phone] Referral ID Status Reason Start Date Expiration Date Visits Requ ested Visits Authorized [id number] Closed 04/02/2022 04/02/2023 1 1 Encounter Details Date Type Department Care Team Description 04/14/2022 Hospital Encounter Department of Alfredo Herrera Painful Total Joint Radiology, [place] Arthroplasty Initial Building, in [address] [place] [address] ([facility]) [facility] [address] [facility] [phone] [place], [place] (Work) [phone] Social History Tobacco Use Types Packs/Day Years [...] THC multivit-min/iron/folic/ Take 1 tablet by 0 [id number] (HAIR, SKIN AND mouth daily. NAILS ADVANCED [...] documented as of this encounter Care Teams Burrer Machine Relationship Specialty Start Date End Date Elsewhere, Pcp PCP - General Family Medicine 12/25/21 documented as of this encounter
--- OUTSIDE RECORDS SUMMARY | 2022-09-14 11:59 | XMS_ITS | Encounter Summary ---
:1965 Author Organization [facility] Address [address] [place] [address] Care Team Providers Name Role Phone Elsewhere, Pcp Primary Care Provider Unavailable Encounter Details Date Type Department Care Team Description 04/21/2022 Clinical Communication Department of Cyrus Polk Orthopedic Surgery in Lilian Souza [place], [place] [address] [place] [address] 200 [place] [address] [phone] Social History Tobacco Use Types Packs/Day Years [...] you attend yazidi or Patient refused 2021 faith services? Do [...] something else is going on . Angie [phone] documented in this encounter Plan of Treatment Not on filedocumented as of this encounter Visit Diagnoses Not on filedocumented in this encounter Additional Health Concerns Assessment Noted Time PHQ-9 Depression Total Score: 16 02/11/2021 12:00 AM C DT documented as of this encounter Care Teams Alteration Inspector Relationship Specialty Start Date End Date Elsewhere, Pcp PCP - General Family Medicine 12/25/21 documented as of this encounter
--- OUTSIDE RECORDS SUMMARY | 2022-09-14 11:59 | XMS_ITS | Encounter Summary ---
:1965 Author Organization [facility] Address [address] [place] [address] Care Team Providers Name Role Phone Elsewhere, Pcp Primary Care Provider Unavailable Reason for Visit Outpatient (Routine) - Closed Specialty Diagnoses / Procedures Referred By Contact Refer red To Contact Orthopedic Surgery Diagnoses Pain Shoulder Left Preoperative Exam Alfredo Herrera, [facility] OP.A.-C [address] [place] [address] Referral ID Status Reason Start Date Expiration Date Visits Requ ested Visits Authorized [id number] Closed 04/22/2022 04/22/2023 1 1 Encounter Details Date Type Department Care Team Description 05/17/2022 Office Visit Department of Cyrus Polk, Raul Shou lder Left; Orthopedic Surgery in M.D. Preoperative Exam [place], [place] [address] [facility] [address] [place] [phone] Social History Tobacco Use Types Packs/Day Years [...] you attend jainism or Patient refused 2021 yarsanism services? Do you belong to any clubs or No 05/17/2022 organizations such as jainism groups, [employer], [employer] or athletic groups, or school groups? How [...] may involve the use of a biomedical engineering technician made by a company withsanam I or one of my partners have collaborated to design, develop, or improve orthopedic implants, instruments, or products. Both the [facility] and the individual surgeons involved receive royalty payments from the use of those specific devices at other institutions, but no royalties or any other payments are paid for the use of those devices with any [facility] patient. The clinical rationale for the use of those devices as well as the availability and applicability of alternative devices was reviewed. He understands that the final decision for the use of a specific biomedical engineering technician often is made at the time [...] documented as of this encounter Care Teams Pilling Machine Operator Relationship Specialty Start Date End Date Elsewhere, Pcp PCP - General Family Medicine 12/25/21 documented as of this encounter
--- OUTSIDE RECORDS SUMMARY | 2022-09-14 11:59 | XMS_ITS | Encounter Summary ---
:1965 Author Organization [facility] Address [address] [place] [address] Care Team Providers Name Role Phone Elsewhere, Pcp Primary Care Provider Unavailable Encounter Details Date Type Department Care Team Description 05/11/2022 Clinical Communication Department of Cyrus Polk Orthopedic Surgery in Lilian Souza [place], [place] [address] [place] [address] 200 [place] [address] [phone] Social History Tobacco Use Types Packs/Day Years [...] you attend holiness or Patient refused 2021 holiness services? Do [...] documented as of this encounter Care Teams Database Dba Relationship Specialty Start Date End Date Elsewhere, Pcp PCP - General Family Medicine 12/25/21 documented as of this encounter
--- OUTSIDE RECORDS SUMMARY | 2022-09-14 12:00 | XMS_ITS | Encounter Summary ---
:1965 Author Organization [facility] Address [address] [place] [address] Care Team Providers Name Role Phone Elsewhere, Pcp Primary Care Provider Unavailable Encounter Details Date Type Department Care Team Description 03/02/2022 Orders Only Pharmacy Prior Auth Ana Rosa Ying [phone] Social History Tobacco Use Types Packs/Day Years [...] you attend yazidi or Patient refused 2021 uatsdin services? Do [...] documented as of this encounter Care Teams Ob/Gyn Relationship Specialty Start Date End Date Elsewhere, Pcp PCP - General Family Medicine 12/25/21 documented as of this encounter
--- OUTSIDE RECORDS SUMMARY | 2022-09-14 12:00 | XMS_ITS | Encounter Summary ---
:1965 Author Organization [facility] Address [address] [place] [address] Care Team Providers Name Role Phone Elsewhere, Pcp Primary Care Provider Unavailable Encounter Details Date Type Department Care Team Description 03/05/2022 Clinical Communication Pharmacy Prior Auth Ben Chino RO M.D. [phone] Social History Tobacco Use Types Packs/Day Years [...] you attend anabaptism or Patient refused 2021 moravian services? Do [...] as of this encounter Care Teams Engine Boss Relationship Specialty Start Date End Date Elsewhere, Pcp PCP - General Family Medicine 12/25/21 documented as of this encounter
--- OUTSIDE RECORDS SUMMARY | 2022-09-14 12:00 | XMS_ITS | Encounter Summary ---
:1965 Author Organization [facility] Address [address] [place] [address] Care Team Providers Name Role Phone Elsewhere, Pcp Primary Care Provider Unavailable Encounter Details Date Type Department Care Team Description 03/03/2022 Orders Only Pharmacy Prior Auth Usha Maurer [phone] Social History Tobacco Use Types Packs/Day Years [...] you attend advent or Patient refused 2021 baptist services? Do [...] as of this encounter Care Teams Glass Furnace Operator Relationship Specialty Start Date End Date Elsewhere, Pcp PCP - General Family Medicine 12/25/21 documented as of this encounter
--- OUTSIDE RECORDS SUMMARY | 2022-09-14 12:00 | XMS_ITS | Encounter Summary ---
:1965 Author Organization [facility] Address [address] [place] [address] Care Team Providers Name Role Phone Elsewhere, Pcp Primary Care Provider Unavailable Encounter Details Date Type Department Care Team Description 03/05/2022 Orders Only Pharmacy Prior Auth RO Elsewhere, Pcp [phone] Social History Tobacco Use Types Packs/Day Years [...] you attend christian or Patient refused 2021 bahai services? Do [...] documented as of this encounter Care Teams Surveillance Supervisor Relationship Specialty Start Date End Date Elsewhere, Pcp PCP - General Family Medicine 12/25/21 documented as of this encounter
--- OUTSIDE RECORDS SUMMARY | 2022-09-14 12:00 | XMS_ITS | Encounter Summary ---
:1965 Author Organization [facility] Address [address] [place] [address] Care Team Providers Name Role Phone Elsewhere, Pcp Primary Care Provider Unavailable Encounter Details Date Type Department Care Team Description 03/08/2022 Orders Only Department of Orthopedic Melissa Mcdonald M.D. Surgery in [place], [place] [address] [place] [address] Social History Tobacco Use [...] you attend islam or Patient refused 2021 anabaptism services? Do [...] documented as of this encounter Care Teams Pipe Racker Relationship Specialty Start Date End Date Elsewhere, Pcp PCP - General Family Medicine 12/25/21 documented as of this encounter
--- OUTSIDE RECORDS SUMMARY | 2022-09-14 12:00 | XMS_ITS | Encounter Summary ---
:1965 Author Organization [facility] Address [address] [place] [address] Care Team Providers Name Role Phone Elsewhere, Pcp Primary Care Provider Unavailable Encounter Details Date Type Department Care Team Description 03/12/2022 Orders Only Department of Melissa Mcdonald Arthroplas ty Total Orthopedic Surgery in M.D. Should er Replacement [place], [place] Status Post Left [address] [facility] (Primary [place]x) [place] [address] Social History Tobacco Use Types [...] you attend christianity or Patient refused 2021 judaism services? Do [...] as of this encounter Care Teams Licensed Mental Health Counselor Relationship Specialty Start Date End Date Elsewhere, Pcp PCP - General Family Medicine 12/25/21 documented as of this encounter
--- OUTSIDE RECORDS SUMMARY | 2022-09-14 12:00 | XMS_ITS | Encounter Summary ---
:1965 Author Organization [facility] Address [address] [place] [address] Care Team Providers Name Role Phone Elsewhere, Pcp Primary Care Provider Unavailable Encounter Details Date Type Department Care Team Description 03/02/2022 Orders Only Pharmacy Prior Auth Sarmad Solano [phone] Social History Tobacco Use Types Packs/Day Years [...] you attend adventist or Patient refused 2021 anglican services? Do [...] documented as of this encounter Care Teams Lozenge Dough Mixer Relationship Specialty Start Date End Date Elsewhere, Pcp PCP - General Family Medicine 12/25/21 documented as of this encounter
--- OUTSIDE RECORDS SUMMARY | 2022-09-14 12:00 | XMS_ITS | Encounter Summary ---
:1965 Author Organization [facility] Address [address] [place] [address] Care Team Providers Name Role Phone Elsewhere, Pcp Primary Care Provider Unavailable Encounter Details Date Type Department Care Team Description 03/11/2022 Documentation Department of Orthopedic Melissa Mcdonald M.D. Surgery in [place], [place] [address] [place] [address] Social History Tobacco Use [...] you attend restorationism or Patient refused 2021 orthodoxy services? Do [...] Mr. Mosquera if he could come to [place] to molded goods spot picker a new sling tomorrow and he [...] as of this encounter Care Teams Back Tender Pulp Drier Relationship Specialty Start Date End Date Elsewhere, Pcp PCP - General Family Medicine 12/25/21 documented as of this encounter
--- OUTSIDE RECORDS SUMMARY | 2022-09-14 12:00 | XMS_ITS | Encounter Summary ---
:1965 Author Organization [facility] Address [address] [place] [address] Care Team Providers Name Role Phone Elsewhere, Pcp Primary Care Provider Unavailable Reason for Referral Outpatient (Routine) - Closed Specialty Diagnoses / Procedures Referred By Contact Refer red To Contact Diagnoses Painful Total Joint Arthroplasty Initial (HCC) Alfredo Herrera [place] Procedures ORS US-Guided aspiration/injection O.P.A.-C. 200 [place] [address] Referral ID Status Reason Start Date Expiration Date Visits Requ ested Visits Authorized [id number] Closed 04/02/2022 04/02/2023 1 1 MRI/CAT/PET Scan (Routine) - Closed Specialty Diagnoses / Procedures Referred By Contact Refer red To Contact Radiology Diagnoses Painful Total Joint Arthroplasty Initial ([facility]) Alfredo Herrera [place] Procedures CT Shoulder Left without IV Contrast O.P.A.-C. 200 [place] [address] Referral ID Status Reason Start Date Expiration Date Visits Requ ested Visits Authorized [id number] Closed 04/02/2022 04/02/2023 1 1 Reason for Visit Outpatient (Routine) - Closed Specialty Diagnoses / Procedures Referred By Contact Refer red To Contact Orthopedic Surgery Diagnoses Arthroplasty Total Shoulder Replacement Status Post Left Alfredo Herrera [place] O.P.ABritton-C. [address] [place] [address] Referral ID Status Reason Start Date Expiration Date Visits Requ ested Visits Authorized [id number] Closed 02/25/2022 02/25/2023 1 1 Encounter Details Date Type Department Care Team Description 04/02/2022 Office Visit Department of Cyrus Polk Arthroplasty Total Shoulder Replacement Status Post Left; Orthopedic Surgery in [place] Sou[place] Painful Total Joint Arthroplasty Initial (HCC) [place], [place] [address] [facility] [address] [place] [phone] Social History Tobacco Use Types Packs/Day Years [...] Cyrus Polk M.D. CT CT Job ID: [id number] documented in this encounter Plan of Treatment [...] e Number [facility] - [address] [place] [address] [facility] [place] [address] Laboratories-[facility] [address] (ABNORMAL) CBC without Differential (04/14/2022 10:42 AM CDT) [facility] Method Time Signature Hemoglobin 8.6 (L) [...] Number [facility] - 200 [place], [place] [address] [facility] [place] [address] Laboratories-[facility] [address] [place] [...] documented as of this encounter Care Teams Stripper Black And White Relationship Specialty Start Date End Date Elsewhere, Pcp PCP - General Family Medicine 12/25/21 documented as of this encounter
--- OUTSIDE RECORDS SUMMARY | 2022-09-14 12:00 | XMS_ITS | Encounter Summary ---
:1965 Author Organization [facility] Address [address] [place] [address] Care Team Providers Name Role Phone Elsewhere, Pcp Primary Care Provider Unavailable Encounter Details Date Type Department Care Team Description 03/03/2022 Orders Only Pharmacy Prior Auth Yady Lebron [phone] Social History Tobacco Use Types Packs/Day Years [...] as of this encounter Care Teams Supervisor Molding Relationship Specialty Start Date End Date Elsewhere, Pcp PCP - General Family Medicine 12/25/21 documented as of this encounter
--- OUTSIDE RECORDS SUMMARY | 2022-09-14 12:00 | XMS_ITS | Encounter Summary ---
:1965 Author Organization [facility] Address [address] [place] [address] Care Team Providers Name Role Phone Elsewhere, Pcp Primary Care Provider Unavailable Encounter Details Date Type Department Care Team Description 03/03/2022 Orders Only Pharmacy Prior Auth Ana Rosa Ying [phone] Social History Tobacco Use Types Packs/Day Years [...] attend roman catholic or Patient refused 2021 religion services? [...] as of this encounter Care Teams Retail Performance Specialist Relationship Specialty Start Date End Date Elsewhere, Pcp PCP - General Family Medicine 12/25/21 documented as of this encounter
--- OUTSIDE RECORDS SUMMARY | 2022-09-14 12:00 | XMS_ITS | Encounter Summary ---
:1965 Author Organization [facility] Address [address] [place] [address] Care Team Providers Name Role Phone Elsewhere, Pcp Primary Care Provider Unavailable Reason for Visit Reason Comments Medication Question Encounter Details Date Type Department Care Team Description 03/08/2022 Clinical Communication Department of Jose Polk Orthopedic Surgery Cyrus Souza M.D. in [place], [facility] [place], [place] [address] [place] [address] [place], [place] [phone] (Work) [phone] Social History Tobacco Use Types Packs/Day Years [...] you attend uatsdin or Patient refused 2021 pentecostal services? Do [...] or the highest technical, or vocational p Dolphinram degree you have received? Sex Assigned at [...] 03/08/2022 11:22 AM CDT Kylie, pharmacist at [facility] in [place] calls. She is wondering if you indeed want to fill it. Please call her back at [phone] Regarding the oxycodone script sent today---patient had [...] documented as of this encounter Care Teams Wrap Yarn Sorter Relationship Specialty Start Date End Date Elsewhere, Pcp PCP - General Family Medicine 12/25/21 documented as of this encounter
--- OUTSIDE RECORDS SUMMARY | 2022-09-14 12:00 | XMS_ITS | Encounter Summary ---
:1965 Author Organization [facility] Address [address] [place] [address] Care Team Providers Name Role Phone Elsewhere, Pcp Primary Care Provider Unavailable Encounter Details Date Type Department Care Team Description 03/16/2022 Clinical Communication Department of Cyrus Polk Orthopedic Surgery in Lilian Souza [place], [place] [address] [place] [address] 200 [place] [address] [phone] Social History Tobacco Use Types Packs/Day Years [...] you attend adventist or Patient refused 2021 catholic services? Do [...] 03/16/2022 12:15 PM CDT Michael, patient's rn case mgr from [facility], is calling hoping to speak to someone on Dr. Polk's surgical team to ensure that the patient is receiving the correct post-op care. Patient is set up for post op appointments at the beginning of March here. However, Michael is looking to speak to someone over the phone to ensure the patient is on the right track. Please call [phone]. Thank you. documented in this encounter Plan of Treatment Not on filedocumented as of this encounter Visit Diagnoses Not on filedocumented in this encounter Additional Health Concerns Assessment Noted Time PHQ-9 Depression Total Score: 16 02/11/2021 12:00 AM C DT documented as of this encounter Care Teams Mainframe Consultant Relationship Specialty Start Date End Date Elsewhere, Pcp PCP - General Family Medicine 12/25/21 documented as of this encounter
--- OUTSIDE RECORDS SUMMARY | 2022-09-14 12:00 | XMS_ITS | Encounter Summary ---
:1965 Author Organization [facility] Address [address] [place] [address] Care Team Providers Name Role Phone Elsewhere, Pcp Primary Care Provider Unavailable Encounter Details Date Type Department Care Team Description 03/02/2022 Orders Only Pharmacy Prior Auth [place] Frias [phone] Social History Tobacco Use Types Packs/Day Years [...] you attend gnosticist or Patient refused 2021 advent services? Do [...] documented as of this encounter Care Teams Materials And Corrosion Engineer Relationship Specialty Start Date End Date Elsewhere, Pcp PCP - General Family Medicine 12/25/21 documented as of this encounter
--- OUTSIDE RECORDS SUMMARY | 2022-09-14 12:00 | XMS_ITS | Encounter Summary ---
:1965 Author Organization [facility] Address [address] [place] [address] Care Team Providers Name Role Phone Elsewhere, Pcp Primary Care Provider Unavailable Reason for Visit Reason Comments Medication Problem Encounter Details Date Type Department Care Team Description 03/01/2022 Clinical Communication Department of Jose Polk Orthopedic Surgery Cyrus Souza M.D. in [place], [facility] [place], [place] [address] [place] [address] [place], [place] [phone] (Work) [phone] Social History Tobacco Use Types Packs/Day Years [...] you attend jewish or Patient refused 2021 synagogue services? Do [...] 12:04 PM CDT PIPER. Received fax from [employer] 03-03-22 indicating the doxycycline hyc dr 100 mg tab is approved through 11/27/2022. Telephone Encounter - Cyrus Polk M.D. - 03/02/2022 7:45 AM CDT Please see below Thank you Telephone Encounter - Radha Suh - 03/01/2022 3:36 PM CDT Regina, pharmacist working for the insurance company calls regarding the doxycycline hyclate (DORYX) 100 mg EC tablet [[id number]] Script. This is not in their formulary. She has several questions to ask to consider approving this. Please call Regina de jesus [phone], ext [phone] Reference # [id number] documented in this encounter Plan of Treatment Not on filedocumented as of this encounter Visit Diagnoses Not on filedocumented in this encounter Additional Health Concerns Assessment Noted Time PHQ-9 Depression Total Score: 16 02/11/2021 12:00 AM C DT documented as of this encounter Care Teams Zoology Technical Officer Relationship Specialty Start Date End Date Elsewhere, Pcp PCP - General Family Medicine 12/25/21 documented as of this encounter
--- OUTSIDE RECORDS SUMMARY | 2022-09-14 12:00 | XMS_ITS | Encounter Summary ---
:1965 Author Organization [facility] Address [address] [place] [address] Care Team Providers Name Role Phone Elsewhere, Pcp Primary Care Provider Unavailable Encounter Details Date Type Department Care Team Description 03/08/2022 Documentation Department of Orthopedic Melissa Mcdonald M.D. Surgery in [place], [place] [address] [place] [address] Social History Tobacco Use [...]
--- OUTSIDE RECORDS SUMMARY | 2022-09-14 12:00 | XMS_ITS | Encounter Summary ---
:1965 Author Organization [facility] Address [address] [place] [address] Care Team Providers Name Role Phone Elsewhere, Pcp Primary Care Provider Unavailable Encounter Details Date Type Department Care Team Description 03/19/2022 Clinical Communication Department of Cyrus Polk Orthopedic Surgery in Lilian Souza [place], [place] [address] [place] [address] 200 [place] [address] [phone] Social History Tobacco Use Types Packs/Day Years [...] you attend baptism or Patient refused 2021 adventism services? Do [...] Have discussed this situation with the O.R. transportation supervisor, the A.M. admission Psychotherapist Counselor, and the Outpatient Psychotherapist Counselor and no one can locate this remote [...] Please return a call to her at [phone] documented in this encounter Plan of Treatment Not on filedocumented as of this encounter Visit Diagnoses Not on filedocumented in this encounter Additional Health Concerns Assessment Noted Time PHQ-9 Depression Total Score: 16 02/11/2021 12:00 AM C DT documented as of this encounter Care Teams Industrial Electrical Technician Relationship Specialty Start Date End Date Elsewhere, Pcp PCP - General Family Medicine 12/25/21 documented as of this encounter
--- OUTSIDE RECORDS SUMMARY | 2022-09-14 12:00 | XMS_ITS | Encounter Summary ---
:1965 Author Organization [facility] Address [address] [place] [address] Care Team Providers Name Role Phone Elsewhere, Pcp Primary Care Provider Unavailable Reason for Visit Reason Comments Communication Encounter Details Date Type Department Care Team Description 03/11/2022 Clinical Communication Department of Cyrus Polk mmunication Orthopedic Surgery in Lilian Souza [place], [place] [address] [place] [address] 200 [place] [phone] Social History Tobacco Use Types Packs/Day Years [...] you attend anabaptism or Patient refused 2021 jainism services? Do [...] and cannot afford any to drive to [place] and chicken picker [place]. Telephone Encounter - Radha [...] as of this encounter Care Teams Boat Joiner Helper Relationship Specialty Start Date End Date Elsewhere, Pcp PCP - General Family Medicine 12/25/21 documented as of this encounter
--- OUTSIDE RECORDS SUMMARY | 2022-09-14 12:00 | XMS_ITS | Encounter Summary ---
:1965 Author Organization [facility] Address [address] [place] [address] Care Team Providers Name Role Phone Elsewhere, Pcp Primary Care Provider Unavailable Encounter Details Date Type Department Care Team Description 03/08/2022 Orders Only Department of Orthopedic Melissa Mcdonald M.D. Surgery in [place], [place] [address] [place] [address] Social History Tobacco Use [...] you attend druze or Patient refused 2021 sabianist services? Do [...] as of this encounter Care Teams Band Instrument Repairer Relationship Specialty Start Date End Date Elsewhere, Pcp PCP - General Family Medicine 12/25/21 documented as of this encounter
--- OUTSIDE RECORDS SUMMARY | 2022-09-14 12:00 | XMS_ITS | Encounter Summary ---
:1965 Author Organization [facility] Address [address] [place] [address] Care Team Providers Name Role Phone Elsewhere, Pcp Primary Care Provider Unavailable Reason for Referral Outpatient (Routine) - Closed Specialty Diagnoses / Procedures Referred By Contact Refer red To Contact Diagnoses Arthroplasty Total Shoulder Replacement Status Post Left Alfredo Herrera O.P.A.-C. [facility] Procedures DX Shoulder Left Ingrowth Series [address] Views [address] [place] [phone] Referral ID Status Reason Start Date Expiration Date Visits Requ ested Visits Authorized [id number] Closed 02/25/2022 02/25/2023 1 1 Reason for Visit Outpatient (Routine) - Closed Specialty Diagnoses / Procedures Referred By Contact Refer red To Contact Diagnoses Arthroplasty Total Shoulder Replacement Status Post Left Alfredo Herrera O.P.A.-C. [facility] Procedures DX Shoulder Left Ingrowth Series 5 Views [address] [place] [phone] Referral ID Status Reason Start Date Expiration Date Visits Requ ested Visits Authorized [id number] Closed 02/25/2022 02/25/2023 1 1 Encounter Details Date Type Department Care Team Description 04/02/2022 Hospital Encounter Department of Alfredo Herrera Total Radiology, Anh Gonzales Shoulder Replacement [facility], in [address] [place] [address] Status Post Left [facility] [address] [place], [place] (Work) [phone] [phone] Social History Tobacco Use Types Packs/Day Years [...] you attend islam or Patient refused 2021 nondenominational services? Do [...] THC multivit-min/iron/folic/ Take 1 tablet by 0 [id number] (HAIR, SKIN AND mouth daily. NAILS ADVANCED [...] documented as of this encounter Care Teams Systems Software Developer Relationship Specialty Start Date End Date Elsewhere, Pcp PCP - General Family Medicine 12/25/21 documented as of this encounter
--- OUTSIDE RECORDS SUMMARY | 2022-09-14 12:00 | XMS_ITS | Encounter Summary ---
:1965 Author Organization [facility] Address [address] [place] [address] Care Team Providers Name Role Phone Elsewhere, Pcp Primary Care Provider Unavailable Reason for Referral Medication Prior Authorization - Denied Specialty Diagnoses / Procedures Referred By Contact Refer red To Contact Michael Chino M.D. Referral ID Status Reason Start Date Expiration Date Visits Requ ested Visits Authorized [id number] Denied 1 1 Encounter Details Date Type Department Care Team Description 02/26/2022 - Hospital Encounter [facility], Shoulder Joint Disorder Left; 02/27/2022 Hospital, Jewish Cyrus Souza M.D. Pain Shoulder Left [facility] [address] [facility], [place], [place] Floor [address] [address] [facility] [phone] [place], [place] (Work) [phone] Social History Tobacco Use [...] 05/17/2022 organizations such as nondenominational groups, unions, fraEXPO or athletic groups, or school groups? How [...] THC multivit-min/iron/folic/ Take 1 tablet by 0 [id number] (HAIR, SKIN AND mouth daily. NAILS ADVANCED [...] - 02/27/2022 8:05 AM CDT Orthopedic Service: [facility] [[email or web address] Hospital Admission Day: 02/26/2022 SUBJECTIVE POD1. She [...] am until 6 pm, please page the [facility] [[email or web address]] pager at [phone] For urgent matters from 6 pm until 6 am, please page [facility] [place] at [phone] Michael Chino M.D. - 02/26/2022 3:03 PM CDT Orthopedic Service: [facility] [[email or web address] Hospital Admission Day: 02/26/2022 SUBJECTIVE Patient seen postoperatively on the general care floor. Doing well. OBJECTIVE Vitals: 02/26/22 1433 02/26/22 1440 02/26/22 1445 02/26/22 1500 BP: 145/79 139/81 130/73 Pulse: 71 64 64 Heart Rate: 72 64 74 Temp: 36.4 ??C Resp: 13 Height: Weight: SpO2: 100% 97% 94% [...] am until 6 pm, please page the [employer] pager at [phone] For urgent matters from 6 pm until 6 am, please page [facility] at [phone] Clemente Buck, Pharm.D., R.Ph. - 02/26/2022 9:17 [...] Take 150 mg by mouth every morning. vwocjbgnop-uqouvzrgagvud-brhb (ESGIC) 50-325-40 mg per tablet Past Week [...] 1 spray as needed. 5 mg THC multivit-min/iron/folic/laq295 (HAIR, SKIN AND NAILS ADVANCED ORAL) 02/25/2022 [...] (HCC) ??? Nicotine Dependence Unspecified ??? Other House Steward/Stewardess Current Drug Therapy ??? Direct Infection Of [...] Receives Help From: mill attendant, Family, Friend(s) ADL Assistance: Required assistance ADL Assistance Comments: Gets help from INVESTMENT ANALYST for her bath/shower and for her meals IADL/Homemaking Assistance: Required assistance IADL/Homemaking Assistance Comments: Gets help for housecleaning Driving: Independent Driving Comments: takes her cane and medical alert with her. Occupational Role: On disability Occupational Role Comments: Previously worked at a [employer] Prior Mobility/Functional Transfers Level of [place]: Modified independent Previous Transfer/Mobility Assistance Comments: Patient [...] mask during therapy session: yes Outcome Measures AM-[facility] Inpatient Short Form: AM-[facility] Basic Mobility (V.2) How [...] Standardized Score: 57.68 Interpretation: Clinicians answer the -[facility] Inpatient Short Form based [...] Prescriptions were sent and filled at the [facility] pharmacy. Catalina Mccloud R.N. - 02/27/2022 [...] elsewhere status post placement antibiotic spacer. A health care assistant was necessary for one or [...] be placed with approximately 70% contact with [place] bone. The more superior aspect of the [...] of antibiotic spacer, implantation of reverse arthroplasty, [id number] Cyrus Polk M.D. CT CT Job ID: [id number] documented in this encounter Plan of Treatment [...] M.D. LAB BLOOD ADD-ON Performing Organization Address City/State/[facility] [[email or web address] Code Phon e Number [facility] - [address] [place], [place] [address] [facility] [address] Laboratories-[facility] [address] [...] 02/26/2022 DTL Black/ mL/min/BSA 6:27 PM CDT Cuban Comment: ----ADDITIONAL INFORMATION---- Estimated GFR calculated using [...] Number [facility] - [address] [place] [address] [facility] [address] Laboratories-[facility] 200 [facility] (ABNORMAL) CBC with Differential, Blood (02/26/2022 3:47 PM CDT) [facility] Method Time Signature Hemoglobin 8.8 [...] [facility] - 200 [place], [place] [address] [facility] [address] Laboratories-[facility] 200 [facility] DX Shoulder Left 1 View (02/26/2022 [...] Aerobe / Anaerobe+Susc (02/26/2022 1:00 PM CDT) [facility] Method Time Signature Bacteria Cult, No growth 03/12/2022 DTL Aerobe/Anaerob after 14 2:02 PM CDT e+Susc days of incubation. Specimen Anatomical Collection Method Collection Time Receive d Time (Source) Location / / Volume Laterality Shoulder, Left 02/26/2022 1:00 PM 022 1:41 CDT PM CDT Comment: Specimen Source Site: Tissue 1 Narrative [facility] - 03/12/2022 2:02 PM CDT Bacterial Culture: Placed in Bactec aero bic and Bactec anaerobic bottles Cyrus Polk M.D. LAB MICROBIOLOGY - GENERAL O MARY Performing Organization Address City/[facility] Phon e Number [facility] - [address] [place], [place] [address] [facility] [place], [place] [phone] [place] [address] 200 [facility] Bacteria Cult, Aerobe / Anaerobe+Susc (02/26/2022 1:00 PM CDT) [facility] Method Time [...] - GENERAL O RDSONIA Performing Organization Address City/State/[facility] Phon e Number [facility] - [address] [place], [place] [address] [facility] [address] Bacteria Cult, Aerobe / Anaerobe+Susc (02/26/2022 1:00 PM CDT) [facility] Method Time Signature Bacteria Cult, No growth 03/12/2022 DT Aerobe/Anaerob after 14 2:02 PM CDT e+Susc days of incubation. Specimen Anatomical Collection Method Collection Time Receive d Time (Source) Location / / Volume Laterality Shoulder, Left 02/26/2022 1:00 PM 022 1:36 CDT PM CDT Comment: Specimen Source Site: Tissue 2 Narrative [facility] - [facility] - 03/12/2022 2:02 PM CDT Bacterial Culture: Placed in Bactec aero bic and Bactec anaerobic bottles Cyrus Polk M.D. LAB MICROBIOLOGY - GENERAL O RDERABLES Performing Organization Address City/State/ZIP Code Phon e Number [facility] - [address] [place] [address] [facility] [address] Laboratories-[facility] 200 [facility] Surgical Pathology, Frozen Lab (02/26/2022 1:00 [...] permanent sections. ??Grossed by Nan Ledezma M.S., PA([facility]). Block Summary A Left shoulder [...] [facility] - [address] [place], [place] [address] [facility] [address] Laboratories-[facility] [address] documented [...] 02/26/2022 02/27/2022 acetaminophen tablet 1,000 mg (TYLENOL) 9585 (Given - Provider: Tanesha Butt)2238 (Given - [...] XL) 0825 (Given - Provider: Catalina Mccloud R.N.) 150 mg, oral, Every morning, First dose on Tue02/27/22 at 0900, Swallow whole. Do NOT crush, chew, or split tablet. ceFAZolin in dextrose (iso-os) IVPB 2 g (ANCEF) (COMPLETED) 2043 (New Bag - Provider: Tanesha Butt) 438 (New Bag - Provider: Lauren rosa R.N.) 2 g, intravenous, at 200 mL/hr, [...] Reason: Contraindicated)0606 (Given - Provider: Lauren Mckeon R.N.) 25 mg, oral, Every 6 hours, First dose on Tue02/26/22 at 1800 FLUoxetine capsule 80 mg (PROzac) 0825 (Given - Provider: Catalina Mccloud R.NBritton) 80 mg, oral, Daily, First dose on [...] Butt) 0825 (Given - Provider: Catalina Mccloud R.NBritton) 40 mg, oral, 2 times daily, First dose on Tue02/26/22 at 1700 lamoTRIgine tablet 200 mg (LaMICtaL) 204 1 (Given - Provider: Tanesha Butt) 0825 (Given - Provider: Catalina lerma, R.N.) 200 mg, oral, 2 times daily, First dose on Tue02/26/22 at 2100 midazolam (PF) injection 1 mg (VERSED) (COMPLETED) 1137 (Given - Provider: Donna Mercado R.NBritton) 1 mg, intravenous, Once, On Tue02/26/22 at 1045, For 1 dose, Pre- Op ondansetron (PF) injection 4 mg (ZOFRAN) (COMPLETED) 1203 (Given - Provider: Christiano AmadorBrittonNBritton) 4 mg, intravenous, Once, On Tue02/26/22 at 1215, For 1 dose, Pre- Op pantoprazole DR tablet 40 mg (PROTONIX) 1713 (Given - Provider: Tanesha Butt) 0610 (Given [...] mg of calcium, oral, Every 2 hour OR N, indigestion, Starting on Tue02/26/22 at 1451, [...] as of this encounter Care Teams Field Representative/Health Education Relationship Specialty Start Date End Date Elsewhere, Pcp PCP - General Family Medicine 12/25/21 documented as of this encounter
--- OUTSIDE RECORDS SUMMARY | 2022-09-14 12:00 | XMS_ITS | Encounter Summary ---
:1965 Author Organization [facility] Address [address] [place] [address] Care Team Providers Name Role Phone Elsewhere, Pcp Primary Care Provider Unavailable Reason for Visit Reason Comments Med Refill Encounter Details Date Type Department Care Team Description 03/02/2022 Refill Division of [facility] Ridge Vega M.D. Med Refill Internal Medicine, [place] [address] [address] [facility] [place] [address] [place] [address] [place] [address] [place] [address] Social History Tobacco Use [...] documented as of this encounter Care Teams Ball Assembler Relationship Specialty Start Date End Date Elsewhere, Pcp PCP - General Family Medicine 12/25/21 documented as of this encounter
--- OUTSIDE RECORDS SUMMARY | 2022-09-14 12:01 | XMS_ITS | Encounter Summary ---
:1965 Author Organization [facility] Address [address] [place] [address] Care Team Providers Name Role Phone Elsewhere, Pcp Primary Care Provider Unavailable Reason for Referral Outpatient (Routine) - Authorized Specialty Diagnoses / Procedures Referred By Contact Refer red To Contact Diagnoses Mesh Worker Antibiotic Treatment Tejal Medley MPAS, P.A.-C., M.S. [address] [place] [phone] Referral ID Status Reason Start Expiration Visits Visits Date Date Requested Authorized [id number] Authorized Patient 02/08/2022 02/08/2023 1 1 Preference Reason for Visit Reason Comments OPAT Care Coordination Encounter Details Date Type Department Care Team Description 02/08/2022 Clinical Communication Section of Desirae Domingo (Care Infectious Diseases M, R.N. Coordination) in [place], [address] [place] [address] [place] [address] [place], [place] [phone] (Work) [phone] Social History Tobacco Use Types Packs/Day Years [...] you attend gnosticism or Patient refused 2021 mu-ism services? Do you belong to any clubs or No 05/17/2022 organizations such as gnosticism groups, unions, fraMalwarebytes or athletic groups, or school groups? How [...] Miscellaneous Notes Telephone Encounter - Desirae Domingo R.N. - 02/08/2022 12:06 PM CDT Maritza calls from [employer] [place]. [employer] stop date of 02/11 for IV antibiotics. Maritza requests order be faxed to [facility] where patient has labs and PICC site care done. I called the [facility], .Pull PIC order can be faxed to [phone]. documented in this encounter Plan of Treatment Not on filedocumented as of this encounter Visit Diagnoses Diagnosis Mesh Worker Antibiotic Treatment - Primary documented in this encounter Additional Health Concerns Assessment Noted Time PHQ-9 Depression Total Score: 16 02/11/2021 12:00 AM C DT documented as of this encounter Care Teams Associate Director Of Nursing Relationship Specialty Start Date End Date Elsewhere, Pcp PCP - General Family Medicine 12/25/21 documented as of this encounter
--- OUTSIDE RECORDS SUMMARY | 2022-09-14 12:01 | XMS_ITS | Encounter Summary ---
:[address] [facility] Address [address] [place] [address] Care Team Providers Name Role Phone Elsewhere, [...] you attend christianity or Patient refused 2021 episcopal services? Do [...] documented as of this encounter Care Teams Piano Player Relationship Specialty Start Date End Date Elsewhere, Pcp PCP - General Family Medicine 12/25/21 documented as of this encounter
--- OUTSIDE RECORDS SUMMARY | 2022-09-14 12:01 | XMS_ITS | Encounter Summary ---
:[address] [facility] Address [address] [place] [address] Care Team Providers Name Role Phone Elsewhere, Pcp Primary Care Provider Unavailable Reason for Visit Outpatient (Routine) - Closed Specialty Diagnoses / Procedures Referred By Contact Refer red To Contact Orthopedic Surgery Diagnoses Pain Shoulder Left Alfredo Herrera, [facility]C [address] [place] [phone] Referral ID Status Reason Start Date Expiration Date Visits Requ ested Visits Authorized [id number] Closed 12/30/2021 12/30/2022 1 1 Encounter Details Date Type Department Care Team Description 02/25/2022 Office Visit Department of Orthopedic Cyrus Polk , Pain Shoulder Left Surgery in [facility] [address] [place] [address] [address] [place] [phone] Social History Tobacco Use Types Packs/Day Years [...] you attend buddhism or Patient refused 2021 denominational services? Do you belong to any clubs or No 05/17/2022 organizations such as buddhism groups, unions, fraSpace Star Technology or athletic groups, or school groups? [...] or the highest technical, or vocational p narciasram degree you have received? Sex Assigned at [...] involve the use of a medical record librarian made by a company [employer] I or one of my partners have [...] the use of a specific medical record librarian often is made at the time of [...] documented as of this encounter Care Teams Electrotyper Apprentice Relationship Specialty Start Date End Date Elsewhere, Pcp PCP - General Family Medicine 12/25/21 documented as of this encounter
--- OUTSIDE RECORDS SUMMARY | 2022-09-14 12:01 | XMS_ITS | Encounter Summary ---
:1965 Author Organization [facility] Address [address] [place] [address] Care Team Providers Name Role Phone Elsewhere, Pcp Primary Care Provider Unavailable Encounter Details Date Type Department Care Team Description 02/26/2022 Clinical Communication [facility] Austyn Breaux, Pharmacy [facility] [address] [facility] [place] [address] Social History Tobacco Use Types [...] you attend evangelical or Patient refused 2021 baptism services? Do [...] as of this encounter Care Teams Financial Examiner Relationship Specialty Start Date End Date Elsewhere, Pcp PCP - General Family Medicine 12/25/21 documented as of this encounter
--- OUTSIDE RECORDS SUMMARY | 2022-09-14 12:01 | XMS_ITS | Encounter Summary ---
:1965 Author Organization [facility] Address [address] [place] [address] Care Team Providers Name Role Phone Elsewhere, Pcp Primary Care Provider Unavailable Reason for Referral MRI/CAT/PET Scan (Routine) - Closed Specialty Diagnoses / Procedures Referred By Contact Refer red To Contact Radiology Diagnoses Painful Total Joint Arthroplasty Initial ([facility]) Michael Chino M.D. [facility] Procedures CT Shoulder Left without IV Contrast [address] [place] [address] Referral ID Status Reason Start Date Expiration Date Visits Requ ested Visits Authorized [id number] Closed 02/25/2022 02/25/2023 1 1 Encounter Details Date Type Department Care Team Description 02/25/2022 Orders Only Department of Michael Chino, Painful T otal Joint Orthopedic Surgery in [place].Neri Arthro plasty Initial [place], [place] ([facility]) [address] [place] [address] Social History Tobacco Use Types Packs/Day Years [...] 05/17/2022 organizations such as jain groups, unions, fraVeacon or athletic groups, or school groups? How [...] as of this encounter Care Teams Machine Design Checker Relationship Specialty Start Date End Date Elsewhere, Pcp PCP - General Family Medicine 12/25/21 documented as of this encounter
--- OUTSIDE RECORDS SUMMARY | 2022-09-14 12:01 | XMS_ITS | Encounter Summary ---
:1965 Author Organization [facility] Address [address] [place] [address] Care Team Providers Name Role Phone Elsewhere, Pcp Primary Care Provider Unavailable Encounter Details Date Type Department Care Team Description 02/26/2022 Clinical Communication [facility] Main Phar Janet Sarmiento, [address] [facility].Ph.T. [place], [place] [phone] (Work) [phone] Social History Tobacco Use Types Packs/Day Years [...] you attend sikh or Patient refused 2021 latter day services? [...] documented as of this encounter Care Teams Wall Attendant Relationship Specialty Start Date End Date Elsewhere, Pcp PCP - General Family Medicine 12/25/21 documented as of this encounter
--- OUTSIDE RECORDS SUMMARY | 2022-09-14 12:01 | XMS_ITS | Encounter Summary ---
:1965 Author Organization [facility] Address [address] [place] [address] Care Team Providers Name Role Phone Elsewhere, Pcp Primary Care Provider Unavailable Reason for Visit Reason Comments Labs Only Encounter Details Date Type Department Care Team Description 02/05/2022 Documentation Section of Infectious Amna Kaur , Labs Only Diseases in [facility] 200 [facility] [address] [place] [address] [phone] Social History Tobacco Use Types Packs/Day Years [...] PM CST Labs entered at this time. NG SETTER documented in this encounter Plan of Treatment Not on filedocumented as of this encounter Procedures Procedure Name Priority Date/Time Associated Comments Diagnosis CBC WITH DIFFERENTIAL, B Routine 02/04/2022 3:06 Results for this PM PILING SETTER procedure are i n the results section. ALANINE AMINOTRANSFERASE Routine 02/04/2022 3:06 Results for this (ALT), S/P PM PILING SETTER procedure are i n the results section. ALKALINE PHOSPHATASE, Routine 02/04/2022 3:06 Res ults for this S/P PM PILING SETTER procedure are i n the results section. CREATININE WITH EGFR, Routine 02/04/2022 3:06 Res ults for this S/P PM PILING SETTER procedure are i n the results section. documented in this encounter Results ALT (Alanine Aminotransferase) (02/04/2022 3:06 PM PILING SETTER) P athologist Signature EXT ALT 20 4 - 35 OTHER (SPECIFY IN SHIRT PRESSER) Specimen (Source) Anatomical Location Collection Method / Collectio n Time Received Time / Laterality Volume Blood (Blood, Venous) Resulting Agency Comment [facility] Gucci Salvador M.D. LAB BLOOD ADD-ON Performing Organization Address City/State/ZIP [facility] Phon e Number OTHER (SPECIFY IN SHIRT PRESSER) OTHER (SPECIFY IN SHIRT PRESSER) N/A Alkaline Phosphatase (02/04/2022 3:06 PM PILING SETTER) P athologist Signature EXT Alkaline 102 40 - 150 OTHER (SPECIFY Phosphatase IN SHIRT PRESSER) Specimen (Source) Anatomical Location Collection Method / Collectio n Time Received Time / Laterality Volume Blood (Blood, Venous) Resulting Agency Comment [facility] Gucci Salvador M.D. LAB BLOOD ADD-ON Performing Organization Address City/[facility] Phon e Number OTHER (SPECIFY IN SHIRT PRESSER) OTHER (SPECIFY IN SHIRT PRESSER) N/A Creatinine with Estimated GFR (02/04/2022 3:06 PM PILING SETTER) P athologist Signature EXT Creatinine 0.7 0.5 - 1.5 OTHER (SPECIFY mg/dL IN SHIRT PRESSER) Specimen (Source) Anatomical Location Collection Method / Collectio n Time Received Time / Laterality Volume Blood (Blood, Venous) Resulting Agency Comment [facility] Gucci Salvador M.D. LAB BLOOD ADD-ON Performing Organization Address City/[facility] Phon e Number OTHER (SPECIFY IN SHIRT PRESSER) OTHER (SPECIFY IN SHIRT PRESSER) N/A (ABNORMAL) CBC with Differential, Blood (02/04/2022 3:06 PM PILING SETTER) P athologist Signature EXT Platelet 253 150 - 450 OTHER Count (SPECIFY IN SHIRT PRESSER) EXT Hemoglobin 9.1 (A) 12 - 15.5 OTHER (SPECIFY IN SHIRT PRESSER) EXT White Blood 4.0 (A) 5.0 - 10.0 OTHER Cell (WBC) (SPECIFY IN Count SHIRT PRESSER) Specimen (Source) Anatomical Location Collection Method / Collectio n Time Received Time / Laterality Volume Blood (Blood, Venous) Narrative This result has an attachment that is no t available. Resulting Agency Comment [facility] Gucci Salvador M.D. LAB BLOOD ADD-ON Performing Organization Address City/[facility] Phon e Number OTHER (SPECIFY IN SHIRT PRESSER) OTHER (SPECIFY IN SHIRT PRESSER) N/A documented in this encounter Visit Diagnoses Not on filedocumented in this encounter Additional Health Concerns Assessment Noted Time PHQ-9 Depression Total Score: 16 02/11/2021 12:00 AM C DT documented as of this encounter Care Teams General Milling Superintendent Relationship Specialty Start Date End Date Elsewhere, Pcp PCP - General Family Medicine 12/25/21 documented as of this encounter
--- OUTSIDE RECORDS SUMMARY | 2022-09-14 12:01 | XMS_ITS | Encounter Summary ---
:1965 Author Organization [facility] Address [address] [place] [address] Care Team Providers Name Role Phone Elsewhere, Pcp Primary Care Provider Unavailable Encounter Details Date Type Department Care Team Description 02/26/2022 Surgery RST SEBAS [facility]ORAN OR Cyrus Polk, ARTHROPLASTY REPLACEMENT [address] [facility] [place] [address] 200 [facility] [phone] [place] [phone] Social History Tobacco Use Types Packs/Day Years [...] or the highest technical, or vocational p [employer] degree you have received? Sex Assigned at [...] THC multivit-min/iron/folic/ Take 1 tablet by 0 [id number] (HAIR, SKIN AND mouth daily. NAILS ADVANCED [...] am until 6 pm, please page the [facility] pager at [phone] For urgent matters from 6 pm until 6 am, please page [facility] at [phone] Michael Chino M.D. - 02/26/2022 3:03 PM CDT Orthopedic Service: [facility] Admission Day: 02/26/2022 SUBJECTIVE Patient seen [...] am until 6 pm, please page the [employer] pager at [phone] For urgent matters from 6 pm until 6 am, please page [facility] at [phone] Clemente Buck, Pharm.D., R.Ph. - 02/26/2022 9:17 [...] Take 150 mg by mouth every morning. maheinnbyh-gfbumzcrgdsbh-eiza (ESGIC) 50-325-40 mg per tablet Past Week [...] 1 spray as needed. 5 mg THC multivit-min/iron/folic/[id number] (HAIR, SKIN AND NAILS ADVANCED ORAL) 02/25/2022 [...] (HCC) ??? Nicotine Dependence Unspecified ??? Other Cardiac Exercise Physiologist Current Drug Therapy ??? Direct Infection Of [...] Right Lives With: Alone Receives Help From: aquarium tank attendant, Family, Friend(s) ADL Assistance: Required assistance ADL Assistance Comments: Gets help from DERMATOLOGIST for her bath/shower and for her meals IADL/Homemaking Assistance: Required assistance IADL/Homemaking Assistance Comments: Gets help for housecleaning Driving: Independent Driving Comments: takes her cane and medical alert with her. Occupational Role: On disability Occupational Role Comments: Previously worked at a [employer] and [employer] Prior Mobility/Functional Transfers Level of Douglas: Modified independent Previous Transfer/Mobility Assistance Comments: Patient [...] mask during therapy session: yes Outcome Measures -[facility] Inpatient Short Form: AM-[facility] Basic Mobility (V.2) How much help from [...] AM-PAC Basic Mobility (V.2) Raw Score: 24 AM-[facility] Basic Mobility (V.2) Standardized Score: 57.68 Interpretation: Clinicians answer the -[facility] Inpatient Short Form based on observed patient [...] Prescriptions were sent and filled at the [facility] pharmacy. Catalina Mccloud R.N. - 02/27/2022 12:00 [...] elsewhere status post placement antibiotic spacer. A actuarial assistant was necessary for one or more [...] be placed with approximately 70% contact with [place] bone. The more superior aspect of the [...] of antibiotic spacer, implantation of reverse arthroplasty, [id number] Cyrus Polk M.D. CT CT Job ID: [id number] documented in this encounter Plan of Treatment [...] [facility] - [address] [place], [place] [address] [facility] [address] [facility] [address] (ABNORMAL) Basic Metabolic Panel [...] 02/26/2022 DTL Black/ mL/min/BSA 6:27 PM CDT Scottish Comment: ----ADDITIONAL INFORMATION---- Estimated GFR calculated [...] Number [facility] - [address] [place] [address] [place] [address] [facility] 200 [facility] (ABNORMAL) CBC with Differential, Blood (02/26/2022 3:47 PM CDT) [facility] Method Time Signature Hemoglobin 8.8 (L) [...] [facility] - 200 [place], [place] [address] [facility] [address] [facility] [address] DX Shoulder Left 1 [...] Aerobe / Anaerobe+Susc (02/26/2022 1:00 PM CDT) [facility] gist Method Time Signature Bacteria Cult, No growth 03/12/2022 DTL Aerobe/Anaerob after 14 2:02 PM CDT e+Susc days of incubation. Specimen Anatomical Collection Method Collection Time Receive d Time (Source) Location / / Volume Laterality Shoulder, Left 02/26/2022 1:00 PM 022 1:41 CDT PM CDT Comment: Specimen Source Site: Tissue 1 Narrative [facility] - 03/12/2022 2:02 PM CDT Bacterial Culture: Placed in Bactec aero bic and Bactec anaerobic bottles Cyrus Polk M.D. LAB MICROBIOLOGY - GENERAL O RDERASARAH Performing Organization Address [facility] Phon e Number [facility] - [address] [place], [place] [address] [place] [address] [facility] 200 [facility] Bacteria Cult, Aerobe [...] Comment: Specimen Source Site: Tissue 3 Narrative [facility] - 03/12/2022 2:02 PM CDT Bacterial Culture: Placed in Bactec aero bic and Bactec anaerobic bottles Cyrus Polk M.D. LAB MICROBIOLOGY - GENERAL O MARY Performing Organization Address [facility] Phon e Number [facility] - [address] [place], [place] [address] [place] [address] [facility] 200 [facility] Bacteria Cult, Aerobe [...] Comment: Specimen Source Site: Tissue 2 Narrative [facility] - 03/12/2022 2:02 PM CDT Bacterial Culture: Placed in Bactec aero bic and Bactec anaerobic bottles Cyrus Polk M.D. LAB MICROBIOLOGY - GENERAL O RDERABLES Performing Organization Address City/State/ZIP Code Phon e Number [facility] - 200 [place], [place] [address] [facility] [address] [facility] [address] [facility] Surgical Pathology, Frozen Lab (02/26/2022 [...] by Nan Ledezma M.S., AMELIA([facility]). Block Summary A Left shoulder 03/01/2022 METH [...] [facility] [address] [place], [place] [address] [place] [address] [facility] [address] documented in this encounter [...] 02/26/2022 02/27/2022 acetaminophen tablet 1,000 mg (TYLENOL) 1718 (Given - Provider: Tanesha Butt)4789 (Given - Provider: Tanesha Butt) 0432 (Given - Provider: Lauren Mckeon RBrittonN.)1104 (Given - Provider: Catalina Mccloud RBetsy) 1,000 mg, oral, Every 6 hours, First dose on Tue02/26/22 at 1700 acetaminophen tablet 1,000 mg (TYLENOL) (COMPLETED) 104 (Given - Provider: Donna Mercado RBrittonNBritton) 1,000 mg, oral, Once, On Tue02/26/22 at 1045, For 1 dose, Pre-Op atorvastatin tablet 80 mg (LIPITOR) 2040 (Given - Provider: Tanesha Butt) 80 mg, oral, Daily at bedtime, First dose on Tue02/26/22 at 2100 buPROPion XL 24 hr tablet 150 mg (WELLBUTRIN XL) 824 (Given - Provider: Catalina Mccloud RBrittonNBritton) 150 [...] (PROzac) 0825 (Given - Provider: Catalina Mccloud R.N.) 80 mg, oral, Daily, First dose on 01/19 at 0900, FLUoxetine orderable was interchanged for FLUoxetine tablet/capsule fluticasone furoate 100 mcg/actuation inhaler 1 puff (ARNUITY EL LIPTA) 0830 (Not Given - Provider: Catalina Mccloud RBetsy - Reason: Patient/family refused) 1 puff, inhalation, Daily, First dose on Tue02/27/22 at 0900, Rinse mouth with water after use to reduce aftertaste and incidence of candidiasis. Do not swallow. furosemide tablet 40 mg (LASIX) 1714 (Given - Pr ovider: Tanesha Butt) 0825 (Given - Provider: Catalina Mccloud R.N.) 40 mg, oral, 2 times daily, [...] Butt) 0610 (Given - Provider: Lauren Mckeon RBetsy) 40 mg, oral, 2 times daily before breakf ast and dinner, First dose on Tue02/26/22 at 1600, pantoprazole 40 mg oral twice daily was interchanged for esomeprazole 20 or 40 mg oral twice daily Swallow whole. Do NOT crush, chew, or split tablet. pregabalin capsule 600 mg (LYRICA) 2040 (Given - Provider: Tanesha Butt) 0825 (Given - Provider: Catalina Mccloud RBrittonN.) 600 mg, oral, 2 times daily, First [...] Butt) 0825 (Given - Provider: Catalina Mccloud RBrittonN.) 1 tablet, oral, 2 times daily, First dos e on Tue02/26/22 at 2100, Do not give if patient has diarrhea. tranexamic acid in NaCl IVPB 1,000 mg (CYKLOKAPRON) (COMPLET ED) 1230 (Given - Provider: Tejal Gonzalez RBetsy) 1,000 mg (1 g), intravenous, at 300 mL/h r, Administer over 20 Minutes, Once, On Tue02/26/22 at 1100, For 1 dose, Intra-Op, Administer in OR upon induction tranexamic acid in NaCl IVPB 1,000 mg (CYKLOKAPRON) (COMPLET ED) 1330 (Given - Provider: Sharifa SnyderNBritton) 1,000 mg (1 g), intravenous, at 300 [...] (CANCELED) 1508 (Given - Provider: Guillermina Oneill, R.NBritton) 25 mcg, intravenous, Every 2 min [...] (COMPLETED) 1504 (Given - Provider: Guillermina Oneill R.NBritton) 10 mg, oral, Once as needed, For pain 4 or greater, Starting on Tue02/26/22 at 1436, For 1 dose, PACU (only) oxyCODONE IR tablet 10 mg (ROXICODONE) (COMPLETED) 1203 (Given - Provider: Donna Mercado R.NBritton) 10 mg, oral, Once as needed, [...] 1104 (See Alternative - Provider: Catalina Mccloud R.Milad) 10 mg, oral, Every 3 hours PRN, [...] documented as of this encounter Care Teams Hr Recruiter Relationship Specialty Start Date End Date Elsewhere, Pcp PCP - General Family Medicine 12/25/21 documented as of this encounter
--- OUTSIDE RECORDS SUMMARY | 2022-09-14 12:01 | XMS_ITS | Encounter Summary ---
:1965 Author Organization [facility] Address [address] [place] [address] Care Team Providers Name Role Phone Elsewhere, Pcp Primary Care Provider Unavailable Reason for Visit Reason Comments OPAT Normal labs Encounter Details Date Type Department Care Team Description 02/09/2022 Clinical Communication Section of Ruth Eddy (Normal labs) Infectious T, R.N. Diseases in [address] [place] [phone] [place] [address] [place], [place] (Work) [phone] Social History Tobacco Use Types Packs/Day Years [...] you attend adventist or Patient refused 2021 zoroastrianism services? Do [...] Miscellaneous Notes Telephone Encounter - Ruth Eddy R.N. - 02/09/2022 10:19 AM CDT OPAT NOTE ?? Infusion Provider: Dennis [facility], phone: [phone], fax: [phone] Labs and site care at [facility], phone: [phone] Antimicrobial(s) currently prescribed: See Med List Hyperlink [...] documented as of this encounter Care Teams Acct Exec Relationship Specialty Start Date End Date Elsewhere, Pcp PCP - General Family Medicine 12/25/21 documented as of this encounter
--- OUTSIDE RECORDS SUMMARY | 2022-09-14 12:01 | XMS_ITS | Encounter Summary ---
:1965 Author Organization [facility] Address [address] [place] [address] Care Team Providers Name Role Phone Elsewhere, Pcp Primary Care Provider Unavailable Reason for Visit Reason Comments OPAT Monitoring Complete Encounter Details Date Type Department Care Team Description 02/12/2022 Clinical Communication Section of Kylie Siddiqui (Monitoring Infectious Diseases M, R.N. Complete) in [facility] [phone] [place] (Work) [address] [place] [phone] Social History Tobacco Use Types Packs/Day Years [...] you attend denominational or Patient refused 2021 congregational services? Do [...] Complete) Information Discussed Princess, a nurse from [place], called to see if any labs need [...] documented as of this encounter Care Teams Ecdis N Navigation Operator Relationship Specialty Start Date End Date Elsewhere, Pcp PCP - General Family Medicine 12/25/21 documented as of this encounter
--- OUTSIDE RECORDS SUMMARY | 2022-09-14 12:01 | XMS_ITS | Encounter Summary ---
:1965 Author Organization [facility] Address [address] [place] [address] Care Team Providers Name Role Phone Elsewhere, Pcp Primary Care Provider Unavailable Encounter Details Date Type Department Care Team Description 02/26/2022 Anesthesia Event RST [facility]ORAN OR Kaushik Carpenter, [address] [facility] [address] [address] [facility] [phone] [place] [phone] (Wo rk) Anesthesia Record Procedure Summary Procedure [...] h andoff to the receiving staff during [facility] we 1. Identified the patient 2. [...] you attend latter-day or Patient refused 2021 scientology services? Do [...] highest level of school Associate degree: etta pinedaoswaldo, 03/24/2021 you have completed or the highest technical, or vocational [facility] degree you have received? Sex Assigned at Date Recorded Female 03/01/2019 10:12 AM CDT documented as of this encounter OR Notes Anesthesia Postprocedure Evaluation - Kaushik Carpenter M.B., Ch.B. - 02/26/2022 3:19 PM CDT Patient: Angie Mosquera Procedure Summary Date: 02/26/22 Room / Location: [address] / [facility] in [place], [place] Anesthesia Start: 1212 Anesthesia Stop: 1436 Procedure: ARTHROPLASTY REPLACEMENT TOTAL SHOULDER. (Left ) Diagnosis: Shoulder Joint Disorder Left (Degenerative joint disease left.) Providers: Cyrus Polk M.D. Responsible Provider: Kaushik Carpneter M.B., Ch.B. Anesthesia Type: general with pain [...] ETT location: oral VL device: glide scope [place] scope blade size: 3 Adult tube size: [...] Pre-op diagnosis: Degenerative joint disease left. Location: [address] [facility][note 3] / [facility] in [place], [place] Providers: Cyrus Polk M.D. Pertinent components [...] with patient /legal guardian or through an tray casting machine operator. Risks/Benefits/Alternatives of Blood transfusion discussed [...] Carpenter M.B., Ch.B. 3. Juana Silva APRN, VETERANS SERVICES SPECIALIST Patient location during procedure: OR / Procedure Area PROCEDURE DETAILS: Mask difficulty assessment: easy mask Final airway type: video laryngoscope Laryngeal Manipulation: no ?? Final best view of glottic structures - Cormack/Lehane Score: grade 1 ETT location: oral VL device: glide scope [place] scope blade size: 3 Adult tube size: [...] event: no complications ATTESTATION STATEMENT Kaushik Carlos, Ch.BBritton ANESTHESIA ORDERABLES AL INJ ANES BRACHIAL PLEX, [...] documented as of this encounter Care Teams [employer] Relationship Specialty Start Date End Date Elsewhere, Pcp PCP - General Family Medicine 12/25/21 documented as of this encounter
--- OUTSIDE RECORDS SUMMARY | 2022-09-14 12:01 | XMS_ITS | Encounter Summary ---
:1965 Author Organization [facility] Address [address] [place] [address] Care Team Providers Name Role Phone Elsewhere, Pcp Primary Care Provider Unavailable Reason for Referral Outpatient (Routine) - Closed Specialty Diagnoses / Procedures Referred By Contact Refer red To Contact Diagnoses Arthroplasty Total Shoulder Replacement Status Post Left Alfredo Herrera O.P.A.-C. [facility] Procedures DX Shoulder Left Ingrowth Series 5 Views [address] [place] [phone] Referral ID Status Reason Start Date Expiration Date Visits Requ ested Visits Authorized [id number] Closed 02/25/2022 02/25/2023 1 1 Outpatient (Routine) - Closed Specialty Diagnoses / Procedures Referred By Contact Refer red To Contact Orthopedic Surgery Diagnoses Arthroplasty Total Shoulder Replacement Status Post Left lAfredo Herrera, [facility] Anh [address] [place] [phone] Referral ID Status Reason Start Date Expiration Date Visits Requ ested Visits Authorized [id number] Closed 02/25/2022 02/25/2023 1 1 Scheduling Instructions 6 wk f/u L TSA Reason for Visit Reason Comments Pre-visit Testing Orders Encounter Details Date Type Department Care Team Description 02/25/2022 Clinical Communication Department of Jam Pre- visit Testing Orthopedic Surgery Cyrus Souza M.D. Orders in [place], [address] [place], [place] [address] [facility] [address] [place], [place] [phone] (Work) [phone] Social History Tobacco Use Types Packs/Day Years [...] you attend moravian or Patient refused 2021 jew services? Do [...] this encounter Miscellaneous Notes Telephone Encounter - Cruzito Deann Carole - 02/25/2022 8:12 AM CDT Please sign order documented in this encounter Plan of Treatment Scheduled Referrals Name Type Priority Associated Diagnoses Order S [facility] Orthopedic Surgery Outpatient Referral Routine [...] documented as of this encounter Care Teams Foreign Trade Teacher Relationship Specialty Start Date End Date Elsewhere, Pcp PCP - General Family Medicine 12/25/21 documented as of this encounter
--- OUTSIDE RECORDS SUMMARY | 2022-09-14 12:01 | XMS_ITS | Encounter Summary ---
:1965 Author Organization [facility] Address [address] [place] [address] Care Team Providers Name Role Phone Elsewhere, Pcp Primary Care Provider Unavailable Encounter Details Date Type Department Care Team Description 02/26/2022 Clinical Communication [facility] Blanca Galan Eisenberg C.Ph.T. 201 [facility] [phone] [place], [place] (Work) [phone] Social History Tobacco Use [...] you attend mormonism or Patient refused 2021 baptism services? Do [...] documented as of this encounter Care Teams Soil Fertility Specialist Relationship Specialty Start Date End Date Elsewhere, Pcp PCP - General Family Medicine 12/25/21 documented as of this encounter
--- OUTSIDE RECORDS SUMMARY | 2022-09-14 12:01 | XMS_ITS | Encounter Summary ---
:1965 Author Organization [facility] Address [address] [place] [address] Care Team Providers Name Role Phone Elsewhere, Pcp Primary Care Provider Unavailable Reason for Referral MRI/CAT/PET Scan (Routine) - Closed Specialty Diagnoses / Procedures Referred By Contact Refer red To Contact Radiology Diagnoses Painful Total Joint Arthroplasty Initial (FORMERLY [facility]) Michael Chino M.D. [facility] Procedures CT Shoulder Left without IV Contrast [address] [place] [phone] Referral ID Status Reason Start Date Expiration Date Visits Requ ested Visits Authorized [id number] Closed 02/25/2022 02/25/2023 1 1 Reason for Visit MRI/CAT/PET Scan (Routine) - Closed Specialty Diagnoses / Procedures Referred By Contact Refer red To Contact Radiology Diagnoses Painful Total Joint Arthroplasty Initial ([facility]) Michael Chino M.D. [facility] Procedures CT Shoulder Left without IV Contrast [address] [place] [phone] Referral ID Status Reason Start Date Expiration Date Visits Requ ested Visits Authorized [id number] Closed 02/25/2022 02/25/2023 1 1 Encounter Details Date Type Department Care Team Description 02/25/2022 Hospital Encounter Department of Michael Chino Total Joint Radiology, Severiano Celaya M.D. Arthropl [facility]) [place], [place] [address] [place] [phone] Social History Tobacco Use Types Packs/Day Years [...] you attend adventism or Patient refused 2021 presybeterian services? Do [...] THC multivit-min/iron/folic/ Take 1 tablet by 0 [id number] (HAIR, SKIN AND mouth daily. NAILS ADVANCED [...] as of this encounter Care Teams Valve Lapper Relationship Specialty Start Date End Date Elsewhere, Pcp PCP - General Family Medicine 12/25/21 documented as of this encounter
--- OUTSIDE RECORDS SUMMARY | 2022-09-14 12:01 | XMS_ITS | Encounter Summary ---
:1965 Author Organization [facility] Address [address] [place] [address] Care Team Providers Name Role Phone Elsewhere, Pcp Primary Care Provider Unavailable Reason for Visit Outpatient (Routine) - Closed Specialty Diagnoses / Procedures Referred By Contact Refer red To Contact Infectious Diseases Diagnoses Aftercare [facility] [address] [place] [phone] Referral ID Status Reason Start Date Expiration Date Visits Requ ested Visits Authorized [id number] Closed 01/01/2022 01/01/2023 1 1 Encounter Details Date Type Department Care Team Description 02/25/2022 Comprehensive Visit Section of Christiano Nixon M.D. [address] [place] [phone] Intermediate Antibiotic Treatment (Primary Dx); Infectious Diseases Russell Santos M.D. [address] [place] [phone] Infection Shoulder Prosthesis Subsequent ; in [place], Direct Infecti on Of Left Shoulder In Infectious And Parasitic Diseases Classified Elsewhere ([facility]); [place] Aftercare Total Shoulder Art hroplasty [address] [place] [phone] Social History Tobacco Use Types Packs/Day [...] you attend confucianism or Patient refused 2021 episcopal services? Do [...] 56 y.o. Birthdate: 1965 Sex: female Address: [address] [place] [phone] Referring Provider: Jose Guadalupe B Khodadadi, M.D. REASON FOR CONSULT We are asked [...] resistance on OSH AST. She presented to [facility] (unclear if on antibiotics) for further evaluation given persistent L shoulder pain 08/2021 prompting aspiration (09/25/21) which revealed elevated TNC (10328) with 81% PMNs with cultures positive for [...] was subsequently admitted to [facility] for further management. Intraoperative cultures and [...] is consistent with aspiration results from original [facility] evaluation which is likely plastic products sales representative of the culprit organism causing [...] of Infectious Diseases OPAT monitoring program at [phone] after dismissal. Primary service to follow labs while patient is hospitalized. [place] pharmacist to adjust dosing after dismissal 4. [...] 150 mg by mouth every morning. ??? jhbnbsrmdw-ekqcurgfcsquf-vbox (ESGIC) 50-325-40 mg per tablet Take 1 [...] 11 mo ago Resulting Agency CULTURE RESULT??Abnormal?? [facility] CULTURE 1+ Staphylococcus coagulase negative [facility] GRAM STAIN ? 1+ PMNs [facility] GRAM STAIN ? No organisms seen [facility] GRAM STAIN ? 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 Hepatic Function Panel ??? Basic Metabolic Panel Spent 36 minutes in total time both kcrx-tl-krnm and non vizs-nv-bbtq to face documented in this encounter Plan of Treatment Not on filedocumented as of this encounter Results Basic Metabolic Panel (02/25/2022 10:09 AM CDT) athologist Signature Potassium, S 3.8 3.6 - [...] 02/25/2022 DTL Black/ mL/min/BSA 11:19 AM CDT Maltese Comment: ----ADDITIONAL INFORMATION---- Estimated GFR calculated using [...] M.D. LAB BLOOD ADD-ON Performing Organization Address City/State/[facility] Code Phon e Number [facility] - [address] [place] [phone] [facility] [place] [address] Laboratories-[facility] 200 [facility] Hepatic Function Panel (02/25/2022 10:09 AM CDT) [facility] gist Method Time Signature Bilirubin, Total, [...] Phon e Number [facility] - [address] [place], [place] [phone] [facility] [place] [address] Laboratories-[facility] [address] documented in this encounter Visit Diagnoses Diagnosis Intermediate Antibiotic Treatment - Primary Infection Shoulder Prosthesis Subsequent Direct Infection Of Left Shoulder In Inf ectious And Parasitic Diseases Classified Elsewhere (HCC) Aftercare Total Shoulder Arthroplasty documented in this encounter Additional Health Concerns Assessment Noted Time PHQ-9 Depression Total Score: 16 02/11/2021 12:00 AM C DT documented as of this encounter Care Teams Unbundler Relationship Specialty Start Date End Date Elsewhere, Pcp PCP - General Family Medicine 12/25/21 documented as of this encounter
--- OUTSIDE RECORDS SUMMARY | 2022-09-14 12:02 | XMS_ITS | Encounter Summary ---
:1965 Author Organization [facility] Address [address] [place] [address] Care Team Providers Name Role Phone Elsewhere, Pcp Primary Care Provider Unavailable Encounter Details Date Type Department Care Team Description 01/08/2022 Clinical Communication Pharmacy Prior Auth ОЛЬГА Carrera M.D. [phone] Social History Tobacco Use Types Packs/Day Years [...] you attend pentecostalism or Patient refused 2021 baptism services? Do [...] Camelia CINTRON. Thank you, The OPPA Team EDGE MACHINE OPERATOR documented in this encounter Plan of Treatment Not on filedocumented as of this encounter Visit Diagnoses Not on filedocumented in this encounter Additional Health Concerns Assessment Noted Time PHQ-9 Depression Total Score: 16 02/11/2021 12:00 AM C DT documented as of this encounter Care Teams Trackwalker Relationship Specialty Start Date End Date Elsewhere, Pcp PCP - General Family Medicine 12/25/21 documented as of this encounter
--- OUTSIDE RECORDS SUMMARY | 2022-09-14 12:02 | XMS_ITS | Encounter Summary ---
:1965 Author Organization [facility] Address [address] [place] [address] Care Team Providers Name Role Phone Elsewhere, Pcp Primary Care Provider Unavailable Reason for Referral Outpatient (Routine) - Closed Specialty Diagnoses / Procedures Referred By Contact Refer red To Contact Infectious Diseases Diagnoses Aftercare Total Shoulder Arthroplasty Jose Guadalupe Nixon [place] M.D. 200 [place] [address] Referral ID Status Reason Start Date Expiration Date Visits Requ ested Visits Authorized [id number] Closed 01/01/2022 01/01/2023 1 1 K DRIVER HELPER Reason for Visit Reason Comments OPAT Post Hospital Follow-up Encounter Details Date Type Department Care Team Description 01/01/2022 Clinical Communication [facility] MATTHEW Nixon; [facility] [address] [place] [address] Jose Guadalupe Garcia M.D. Follow-up [place], [place] [address] [place] [phone] [place] [phone] Social History Tobacco Use Types Packs/Day Years [...] you attend judaism or Patient refused 2021 mandaeism services? Do you belong to any clubs or No 05/17/2022 organizations such as judaism groups, unions, [employer] or athletic groups, or school groups? [...] Type Priority Associated Diagnoses Order S [facility] Infectious Disease Outpatient Routine Aftercare Total [...] ADD-ON Performing Organization Address City/[facility] Phon e Number [facility] - [address] [place] [address] [place] [address] CRP (C-Reactive Protein) (02/25/2022 10:09 AM CDT) P athologist Signature C-Reactive <3.0 <=8.0 mg/L 02/25/2022 DTL Protein (CRP), 11:34 AM CDT S Specimen Anatomical Collection Method Collection Time Receive d Time (Source) Location / / Volume Laterality Blood (Blood, 02/25/2022 10:09 02/25/2022 Venous) AM CDT 11:00 AM CDT Jose Guadalupe Nixon M.D. LAB BLOOD ADD-ON Performing Organization Address [facility] Phon e Number [facility] - [address] [place] [address] [place] [address] (ABNORMAL) CBC with Differential, Blood (02/25/2022 [...] [facility] [address] [place], [place] [address] [facility] [place] [address] Laboratories-[facility] [address] documented in this encounter Visit Diagnoses Diagnosis Aftercare Total Shoulder Arthroplasty - Primary documented in this encounter Additional Health Concerns Assessment Noted Time PHQ-9 Depression Total Score: 16 02/11/2021 12:00 AM C DT documented as of this encounter Care Teams Licensed Appraiser Relationship Specialty Start Date End Date Elsewhere, Pcp PCP - General Family Medicine 12/25/21 documented as of this encounter
--- OUTSIDE RECORDS SUMMARY | 2022-09-14 12:02 | XMS_ITS | Encounter Summary ---
:[address] [facility] Address [address] [place] [address] Care Team Providers Name Role Phone Elsewhere, Pcp Primary Care Provider Unavailable Encounter Details Date Type Department Care Team Description 01/01/[address] [facility] Sapna Dodge C.Ph.T. 201 [facility] [phone] [place], [place] (Work) [phone] Social History Tobacco [...] you attend sikhism or Patient refused 2021 church services? Do [...] documented as of this encounter Care Teams Lean Engineer Relationship Specialty Start Date End Date Elsewhere, Pcp PCP - General Family Medicine 12/25/21 documented as of this encounter
--- OUTSIDE RECORDS SUMMARY | 2022-09-14 12:02 | XMS_ITS | Encounter Summary ---
:1965 Author Organization [facility] Address [address] [place] [address] Care Team Providers Name Role Phone Elsewhere, Pcp Primary Care Provider Unavailable Encounter Details Date Type Department Care Team Description 01/01/2022 Episode Changes Section of Infectious Lin [facility] in [place], (Work ) [place] [address] [place] [phone] Social History Tobacco Use Types Packs/Day [...] you attend taoist or Patient refused 2021 jainism services? Do [...] documented as of this encounter Care Teams Training And Development Director Relationship Specialty Start Date End Date Elsewhere, Pcp PCP - General Family Medicine 12/25/21 documented as of this encounter
--- OUTSIDE RECORDS SUMMARY | 2022-09-14 12:02 | XMS_ITS | Encounter Summary ---
:1965 Author Organization [facility] Address [address] [place] [address] Care Team Providers Name Role Phone Elsewhere, Pcp Primary Care Provider Unavailable Reason for Visit Reason Comments OPAT Lab request Encounter Details Date Type Department Care Team Description 01/26/2022 Clinical Communication Section of Ruth Eddy (Lab request) Infectious T, R.N. Diseases in [address] [place] [phone] [place] [address] [place], [place] (Work) [phone] Social History Tobacco Use Types Packs/Day Years [...] Telephone Encounter - Ruth Eddy RRebekah. - 01/26/2022 4:13 PM CST [facility] ITC, phone: [phone] was called and message left to fax us lab results. Our fax and phone number was given. S ENABLEMENT ANALYST documented in this encounter Plan of Treatment Not on filedocumented as of this encounter Visit Diagnoses Not on filedocumented in this encounter Additional Health Concerns Assessment Noted Time PHQ-9 Depression Total Score: 16 02/11/2021 12:00 AM C DT documented as of this encounter Care Teams Arcade Technician Relationship Specialty Start Date End Date Elsewhere, Pcp PCP - General Family Medicine 12/25/21 documented as of this encounter
--- OUTSIDE RECORDS SUMMARY | 2022-09-14 12:02 | XMS_ITS | Encounter Summary ---
:1965 Author Organization [facility] Address [address] [place] [address] Care Team Providers Name Role Phone Elsewhere, Pcp Primary Care Provider Unavailable Encounter Details Date Type Department Care Team Description 01/05/2022 Clinical Communication Section of Infectious Ed [facility]aly [facility] in [place], , HOP STRAINER, C.N.P. [place] 200 [facility] 200 [place] [phone] Social History Tobacco Use Types Packs/Day Years [...] you attend temple or Patient refused 2021 pentecostal services? Do [...] Ward APRN, C.N.P. - 01/05/2022 2:17 PM GROCERY BAGGER Left shoulder synovial fluid culture from 12/30 has been reported for growth of oxacillin sensitive Staphylococcus epidermidis. No change recommended to the patient's current regimen of ceftriaxone. ERY BAGGER Telephone Encounter - Laly Ward APRN, C.N.P. - 01/05/2022 2:17 PM GROCERY BAGGER ----- Message from Su Greene, Pharm.D., R.Ph. sent at 01/05/2022 9:51 AM GROCERY BAGGER ----- Patient with shoulder infection (with previous [...] changes please message RST [facility] PHARMACIST tresckow. If urgent, page [phone] M-F 9am-5 pm ERY BAGGER documented in this encounter Plan of Treatment [...]
--- OUTSIDE RECORDS SUMMARY | 2022-09-14 12:02 | XMS_ITS | Encounter Summary ---
:1965 Author Organization [facility] Address [address] [place] [address] Care Team Providers Name Role Phone Elsewhere, Pcp Primary Care Provider Unavailable Reason for Visit Reason Comments OPAT Normal Labs Encounter Details Date Type Department Care Team Description 01/15/2022 Clinical Communication Section of Madhav Rizo (Normal Labs) Infectious Diseases M, M.P.H., in [address] 200 [place] [phone] Social History Tobacco Use Types Packs/Day Years [...] Rizo M.P.H., R.N. - 01/15/2022 3:24 PM FISHER HAND LINE OPAT NOTE Infusion Provider: Dennis [facility], phone: [phone], fax: [phone] Labs and site care at [facility], phone: [phone] Antimicrobial(s) currently prescribed: See Med List Hyperlink in note Firm stop date: 02/11/22 Lab results from 01/14/2022 are viewable in the MCR record--listed as External Labs (received via fax, which has been uploaded to Document Viewer/Media) Interpretation and action: The labs were satisfactory and acceptable. No change in plan as per OPAT Practice Guideline. ER HAND LINE documented in this encounter Plan of Treatment [...] Signature EXT ALT 14 4 - 35 [facility] Specimen (Source) Anatomical Location Collection Method / Collectio n Time Received Time / Laterality Volume Blood (Blood, Venous) Laly Ward APRN, C.N.P. LAB BLOOD ADD-ON Performing Organization Address City/[facility] Phon e Number [facility] [address] [place] [address] Creatinine with Estimated GFR (01/14/2022) athologist Signature EXT Creatinine 0.6 0.5 - 1.5 [place] mg/dL [facility] Specimen (Source) Anatomical Location Collection Method / Collectio n Time Received Time / Laterality Volume Blood (Blood, Venous) Laly Ward APRN, C.N.P. LAB BLOOD ADD-ON Performing Organization Address [facility] Phon e Number [facility] [address] [place] [address] (ABNORMAL) CBC with Differential, Blood (01/14/2022) athologist Signature EXT Platelet 406 150 - 450 [place] Count [facility] EXT Hemoglobin 9 (A) 12 - 15.5 [facility] EXT Absolute 3.49 1.7 - 7 [place] Neutrophils [facility] EXT White Blood 5.7 5.0 - 10.0 [place] Cell (WBC) Count [facility] Specimen (Source) Anatomical Location Collection Method / Collectio n Time Received Time / Laterality Volume Blood (Blood, Venous) Narrative This result has an attachment that is no t available. Laly Ward APRN, C.N.P. LAB BLOOD ADD-ON Performing Organization Address City/[facility] Phon e Number [facility] [address] [place] [address] documented in this encounter Visit Diagnoses Not on filedocumented in this encounter Additional Health Concerns Assessment Noted Time PHQ-9 Depression Total Score: 16 02/11/2021 12:00 AM C DT documented as of this encounter Care Teams Product Planner Relationship Specialty Start Date End Date Elsewhere, Pcp PCP - General Family Medicine 12/25/21 documented as of this encounter
--- OUTSIDE RECORDS SUMMARY | 2022-09-14 12:02 | XMS_ITS | Encounter Summary ---
:1965 Author Organization [facility] Address [address] [place] [id number] Care Team Providers Name Role Phone Elsewhere, Pcp Primary Care Provider Unavailable Reason for Visit Reason Comments OPAT Intervention Encounter Details Date Type Department Care Team Description 01/28/2022 Clinical Communication Section of Ruth Eddy (Intervention Infectious T, R.N. ) Diseases in [address] [place] [id number] [place] [address] [place], [place] (Work) [phone] Social History Tobacco Use Types Packs/Day Years [...] you attend hinduism or Patient refused 2021 baptism services? Do [...] encounter Miscellaneous Notes Telephone Encounter - Su Greene Pharm.D., R.Ph. - 02/01/2022 12:42 PM CST Mild alkaline phosphatase elevation with no recent baseline for comparison, continue with current OPAT plan and monitor weekly as we are for now to obtain ALP trend. NING TECH Telephone Encounter - Desirae Domingo RBrittonN. - 02/01/2022 12:11 PM CST Maritza calls from [place] regarding Alk phos from 01/28. It is greater than 1.5 the upper limit of normal. NING TECH Telephone Encounter - Su Greene, Pharm.D., R.Ph. - 01/29/2022 8:49 AM CST Reviewed WBC trend including WBC on 01/28, no changes at this time, see note from my colleague Jennifer Roca for details. NING TECH Telephone Encounter - Ruth Eddy RRebekah. - 01/29/2022 8:14 AM CST OPAT NOTE ?? Infusion Provider: [facility], phone: [phone], fax: [phone] Labs and site care at [facility], phone: [phone] Antimicrobial(s) currently prescribed: See Med List Hyperlink in note Firm stop date: 02/11/22 ?? Lab results from are viewable in the MCR record--listed as External Labs (received via fax, which has been uploaded to Document Viewer/Media) ?? Interpretation and action: The labs were reviewed. WBC and ANC are improving. I will send this to the provider for review. NING TECH Telephone Encounter - Jennifer Roca, Pharm.D., R.Ph. - 01/28/2022 10:21 AM SCANNING TECH Pertinent labs and antimicrobial regimen as [...] time. For monitoring: continue weekly OPAT labs. NING TECH Telephone Encounter - Ruth Eddy R.N. - 01/28/2022 9:40 AM CST OPAT NOTE Infusion Provider: [facility], phone: [phone], fax: [phone] Labs and site care at [facility], phone: [phone] Antimicrobial(s) currently prescribed: See Med List Hyperlink in note Firm stop date: 02/11/22 Lab results from 01/21/2022 are viewable in the MCR record--listed as External Labs (received via fax, which has been uploaded to Document Viewer/Media) Interpretation and action: The labs were reviewed. WBC is 3.6 and ANC is 1.42. Alk Phos was not done. [facility]. Orders were sent to [facility] that included alk phos that will be drawn today, 01-28-2022. NING TECH documented in this encounter Plan of Treatment Not on filedocumented as of this encounter Procedures Procedure Name Priority Date/Time Associated Comments Diagnosis CBC WITH DIFFERENTIAL, B Routine 01/28/2022 3:00 Results for this PM SCANNING TECH procedure are i n the results section. ALANINE AMINOTRANSFERASE Routine 01/28/2022 3:00 Results for this (ALT), S/P PM SCANNING TECH procedure are i n the results section. ALKALINE PHOSPHATASE, Routine 01/28/2022 3:00 Res ults for this S/P PM SCANNING TECH procedure are i n the results section. CREATININE WITH EGFR, Routine 01/28/2022 3:00 Res ults for this S/P PM SCANNING TECH procedure are i n the results [...] Results ALT (Alanine Aminotransferase) (01/28/2022 3:00 PM SCANNING TECH) athologist Signature EXT ALT 20 4 - 35 [facility] REFERRAL LAB Specimen (Source) Anatomical Location Collection Method / Collectio n Time Received Time / Laterality Volume Blood (Blood, Venous) Laly Ward APRN CBrittonN.P. LAB BLOOD ADD-ON Performing Organization Address City/State/ZIP Code Phon e Number [facility] REFERRAL LAB (ABNORMAL) Alkaline Phosphatase (01/28/2022 3:00 PM SCANNING TECH) athologist Signature EXT Alkaline 97 (A) 40 - 50 [facility] REFERRAL Phosphatase LAB Specimen (Source) Anatomical Location Collection Method / Collectio n Time Received Time / Laterality Volume Blood (Blood, Venous) Laly Ward APRN, C.N.P. LAB BLOOD ADD-ON Performing Organization Address City/[facility]/ZIP Code Phon e Number [facility] REFERRAL LAB Creatinine with Estimated GFR (01/28/2022 3:00 PM SCANNING TECH) athologist Signature EXT Creatinine 0.6 0.5 - 1.5 [facility] REFERRAL mg/dL LAB Specimen (Source) Anatomical Location Collection Method / Collectio n Time Received Time / Laterality Volume Blood (Blood, Venous) Narrative This result has an attachment that is no t available. Laly Ward APRN, C.N.P. LAB BLOOD ADD-ON Performing Organization Address City/[facility]/ZIP Code Phon e Number [facility] REFERRAL LAB (ABNORMAL) CBC with Differential, Blood (01/28/2022 3:00 PM SCANNING TECH) Analysis Performed At [facility] logist Time Signature EXT Platelet 237 150 [...] Time / Laterality Volume Blood (Blood, Venous) Abinash Madeleine M.D. LAB BLOOD ADD-ON Performing Organization Address [...] as of this encounter Care Teams Sales Rep Relationship Specialty Start Date End Date Elsewhere, Pcp PCP - General Family Medicine 12/25/21 documented as of this encounter
--- OUTSIDE RECORDS SUMMARY | 2022-09-14 12:02 | XMS_ITS | Encounter Summary ---
:1965 Author Organization [facility] Address [address] [place] [address] Care Team Providers Name Role Phone Elsewhere, Pcp Primary Care Provider Unavailable Encounter Details Date Type Department Care Team Description 01/08/2022 Orders Only Pharmacy Prior Auth RO Elsewhere, Pcp [phone] Social History Tobacco Use Types Packs/Day Years [...] you attend bahai or Patient refused 2021 jewish services? Do [...] documented as of this encounter Care Teams Used Car Make Ready Mechanic Relationship Specialty Start Date End Date Elsewhere, Pcp PCP - General Family Medicine 12/25/21 documented as of this encounter
--- OUTSIDE RECORDS SUMMARY | 2022-09-14 12:02 | XMS_ITS | Encounter Summary ---
:1965 Author Organization [facility] Address [address] [place] [address] Care Team Providers Name Role Phone Elsewhere, Pcp Primary Care Provider Unavailable Reason for Visit Reason Comments OPAT Intervention Encounter Details Date Type Department Care Team Description 01/07/2022 Clinical Communication Section of MATTHEW Tolbert (Intervention) Infectious Diseases [facility] [phone] 200 [facility] (Work) [place] [address] Social History Tobacco Use Types Packs/Day Years [...] you attend muslim or Patient refused 2021 baptist services? Do [...] Dandy Reyes, Pharm.D. - 01/12/2022 9:38 AM ORDNANCE OFFICER Pertinent labs and antimicrobial regimen as indicated [...] >0.3 mg/dL and absolute value >1.0 mg/dL. ANCE OFFICER Telephone Encounter - Steven Dennis R.N. - 01/12/2022 9:13 AM CST OPAT NOTE Infusion Provider: [facility], phone: [phone], fax: [phone] Labs and site care at [facility], phone: [phone] Antimicrobial(s) currently prescribed: See Med List Hyperlink in note Firm stop date: 02/11/22 Lab results from 01/07/22 are viewable in the MCR record--listed as External Labs (received via fax, which has been uploaded to Document Viewer/Media) Interpretation and action: Will send to the OPAT pharmacist to review the creatinine, which has decreased >30%. Alk phos wasnot drawn. ANCE OFFICER documented in this encounter Plan of Treatment Not on filedocumented as of this encounter Procedures Procedure Name Priority Date/Time Associated Comments Diagnosis CBC WITH DIFFERENTIAL, B Routine 01/07/2022 2:30 Results for this PM ORDNANCE OFFICER procedure are i n the results section. ALANINE AMINOTRANSFERASE Routine 01/07/2022 2:30 Results for this (ALT), S/P PM ORDNANCE OFFICER procedure are i n the results section. CREATININE WITH EGFR, Routine 01/07/2022 2:30 Res ults for this S/P PM ORDNANCE OFFICER procedure are i n the results section. documented in this encounter Results ALT (Alanine Aminotransferase) (01/07/2022 2:30 PM ORDNANCE OFFICER) P athologist Signature EXT ALT 10 4 - 35 [facility]) Specimen (Source) Anatomical Location Collection Method / Collectio n Time Received Time / Laterality Volume Blood (Blood, Venous) Araceli Araiza APRNN.P. LAB BLOOD ADD-ON Performing Organization Address City/[facility] Code Phon e Number [facility], [address] [place] [address] [id number] [facility]) Creatinine with Estimated GFR (01/07/2022 2:30 PM ORDNANCE OFFICER) Analysis Performed At Patho logist Time Signature EXT Creatinine 0.5 0.5 - 1.5 [place] mg/dL [facility]) Specimen (Source) Anatomical Location Collection Method / Collectio n Time Received Time / Laterality Volume Blood (Blood, Venous) Narrative This result has an attachment that is no t available. Laly Ward APRN, C.N.P. LAB BLOOD ADD-ON Performing Organization Address City/[facility] Phon e Number [facility], [address] [place] [address] [phone] [facility]) (ABNORMAL) CBC with Differential, Blood (01/07/2022 2:30 PM ORDNANCE OFFICER) Patholo gist Method Time Signature EXT Platelet 349 150 - 450 [facility], [facility]) EXT Eosinophils 0.28 0 - 0.5 [facility]) EXT Hemoglobin 8.7 (A) 12 - 15.5 [facility], [facility]) EXT Absolute 3.19 1.7 - 7 [place] Neutrophils [facility], [facility]) EXT White Blood 5.4 5.0 - [place] Cell (WBC) 10.0 [facility]) Specimen (Source) Anatomical Location Collection Method / Collectio n Time Received Time / Laterality Volume Blood (Blood, Venous) Narrative This result has an attachment that is no t available. Laly Ward APRN, C.N.P. LAB BLOOD ADD-ON Performing Organization Address City/State/ZIP Code Phon e Number [facility], [address] [place], [place] [phone] [facility]) documented in this encounter Visit Diagnoses Not on filedocumented in this encounter Additional Health Concerns Assessment Noted Time PHQ-9 Depression Total Score: 16 02/11/2021 12:00 AM C DT documented as of this encounter Care Teams Awning Erector Relationship Specialty Start Date End Date Elsewhere, Pcp PCP - General Family Medicine 12/25/21 documented as of this encounter
--- OUTSIDE RECORDS SUMMARY | 2022-09-14 12:02 | XMS_ITS | Encounter Summary ---
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 [address] [place] [phone] Referral ID Status Reason Start Date Expiration Date Visits V isits Requested Authorized [id number] Authorized 01/01/2022 01/01/2023 1 1 BAG FRAMER Encounter Details Date Type Department Care Team Description 12/30/2021 - Hospital Encounter [facility] Kulwant Polk M.D. [address] [place] [phone] Pain Shoulder Left (Primary Dx); 01/01/2022 Hospital, Nondenominational Kennedi Vera MPAS, P.A.-C. [address] [place] [phone] Shoulder Joint Disorder Left; Afshin Blasenberg Direct Inf ection Of Left Shoulder In Infectious And Parasitic Diseases Classified Elsewhere (HCC) Building, Eighth Floor [address] [place] [phone] Social History Tobacco Use Types Packs/Day Years [...] you attend caodaism or Patient refused 2021 yarsani services? Do [...] Comments Blood Pressure 141/91 01/01/2022 4:26 PM HANDBAG FRAMER Pulse 95 01/01/2022 4:26 PM HANDBAG FRAMER Temperature 36.8 ??C (98.2 ??F) 01/01/2022 4:26 PM HANDBAG FRAMER Respiratory Rate 18 01/01/2022 4:26 PM HANDBAG FRAMER Oxygen Saturation 93% 01/01/2022 4:26 PM HANDBAG FRAMER Inhaled Oxygen Concentration - - Weight 69.9 kg (154 lb 1.6 12/30/2021 11:22 AM oz) HANDBAG FRAMER Height 150.5 cm (4' 11.25) 12/30/2021 11:22 AM no shoe s/boots HANDBAG FRAMER Body Mass Index 30.86 12/30/2021 11:22 AM HANDBAG FRAMER documented in this encounter Discharge Summaries Dario Carrera M.D. - 01/01/2022 8:50 AM CST DISCHARGE SUMMARY BRIEF OVERVIEW Hospital: [facility] Discharge Provider: Cyrus Polk M.D. Primary Team: [facility] - Jam Primary Care Providers: [...] SHOULDER. Cyrus Polk M.D.Munaretto, Nicholas F, M.D. [facility] OR DISCHARGE DISPOSITION Home-Health Care [facility] [6] ACTIVE ISSUES REQUIRING FOLLOW UP Active [...] tolerated the procedure well. Please see Dr. Plok's operative note for complete details. After a [...] were provided to the patient and caregiver(s). BAG FRAMER documented in this encounter Discharge Instructions AttachmentsThe following attachments cannot be sent through Care Everywhere. Continuous Nerve-Block Infusion System: Often called a ???pain pump?? (Marshallese) documented in this encounter Medications at Time [...] needed. multivit-min/iron/folic/ Take 1 tablet by 0 [id number] (HAIR, SKIN AND mouth daily. NAILS ADVANCED [...] 50 mL (2 g 2050 mL 0 02/02/202202/11/2022 iso-osm, (ROCEPHIN) 2 total) [...] Anesthesia Assessment Note Patient: Angie Mosquera General Ruben Post-procedure day: 3 Follow-up type: outpatient regional [...] when she got up for the day. BAG FRAMER Ruth Gonzalez P.T., D.P.T. - 01/01/2022 4:29 [...] mask during therapy session: no Outcome Measures [facility] Inpatient Short Form: -PAC Basic Mobility (V.2) How much help from [...] 3-5 steps with a railing?: A Little AM-[facility] Basic Mobility (V.2) Raw Score: 23 AM-PAC Basic Mobility (V.2) Standardized Score: 50.88 Interpretation: Clinicians answer the -[facility] [...] quad cane since it is not available [facility] by prescription. Barriers to Discharge Home: [...] (min): 23 min Ruth Gonzalez P.T., Juice.P.TBritton BAG FRAMER Elvira Duncan R.N. - 01/01/2022 3:21 PM [...] educational pamphlet Continuous Nerve-Block Infusion System ( [id number]).?? Discussed at home removal of nervecatheter, signs [...] our ownership and financial relationship of the [facility]/home health & hospice agencies. Reviewed insurance [...] Address Phone Fax Patient Preferred [facility] Infusion and IV Therapy [address], [place] [phone] -- Contact: Intake NURSING: - Adjust the [...] draws will be managed by Outpatient Facility: [facility] Address: [address] , [place], [place] Contact: Princess They will provide IV [...] continue to follow. Joe Ervin, M.S.W. 01/01/2022 BAG FRAMER Gucci Salvador M.D. 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 DuvallDemetri, who expressed understanding. All questions answered to patient's satisfaction. Please page [phone] for questions. 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 [id number] BAG FRAMER Pamela Crawford Pharm.D., R.Ph. - 01/01/2022 10:14 [...] regimen while on post-operative opioids Pamela Crawford PharmBrittonDBritton, R.Ph. [phone] BAG FRAMER Jose Guadalupe Nixon M.D. - 01/01/2022 8:31 AM CST Infectious Diseases Orthopedic Surgery [facility] Consulting Service Progress Note SUBJECTIVE -No acute [...] Date/Time Bacteria / Mandi Culture, Blood #2 [[id number]] Collected: 12/31/21 1604 Lab Status: In process Specimen: Blood, Peripheral Draw Updated: 12/31/21 1651 Narrative: Received Bactec aerobic and Bactec anaerobic bottles Specimen Information: Specimen ID: [id number] Specimen Source: Blood, Peripheral Draw Specimen Comment: Specimen Source Site: Blood Specimen Collection Start Date: 12/31/2021 4:05 PM Specimen Received Date: 12/31/2021 4:51 PM Specimen ID: [id number] Specimen Source: Blood, Peripheral Draw Specimen Comment: Specimen Source Site: Blood Specimen Collection Start Date: 12/31/2021 4:05 PM Specimen Received Date: 12/31/2021 4:51 PM Specimen ID: [id number] Specimen Source: Blood, Peripheral Draw Specimen Comment: Specimen Source Site: Blood Specimen Collection Start Date: 12/31/2021 4:04 PM Specimen Received Date: 12/31/2021 4:51 PM Bacteria / Mandi Culture, Blood #1 [[id number]] Collected: 12/31/21 1552 Lab Status: In process Specimen: Blood, Peripheral Draw Updated: 12/31/21 1651 Narrative: Received Bactec aerobic and Bactec anaerobic bottles Specimen Information: Specimen ID: [id number] Specimen Source: Blood, Peripheral Draw Specimen Comment: Specimen Source Site: Blood Specimen Collection Start Date: 12/31/2021 3:52 PM Specimen Received Date: 12/31/2021 4:50 PM Specimen ID: [id number] Specimen Source: Blood, Peripheral Draw Specimen Comment: Specimen Source Site: Blood Specimen Collection Start Date: 12/31/2021 3:53 PM Specimen Received Date: 12/31/2021 4:50 PM Specimen ID: [id number] Specimen Source: Blood, Peripheral Draw Specimen Comment: Specimen Source Site: Blood Specimen Collection Start Date: 12/31/2021 3:53 PM Specimen Received Date: 12/31/2021 4:50 PM Bacteria Cult, Aerobe / Anaerobe+Susc [[id number]] Collected: 12/30/21 1411 Lab Status: Preliminary result Specimen: Shoulder, Left Updated: 12/31/21 1601 Bacteria Cult, Aerobe/Anaerobe+Susc No growth to date. Narrative: Bacterial Culture: Placed in Bactec aerobic and Bactec anaerobic bottles Bacteria Cult, Aerobe / Anaerobe+Susc [[id number]] Collected: 12/30/21 1405 Lab Status: Preliminary result Specimen: Synovial Fluid, Left Shoulder Updated: 12/31/21 1601 Bacteria Cult, Aerobe/Anaerobe+Susc No growth to date. Narrative: Bacterial Culture: Placed in Bactec aerobic and Bactec anaerobic bottles Bacteria Cult, Aerobe / Anaerobe+Susc [[id number]] Collected: 12/30/21 1404 Lab Status: Preliminary result Specimen: Shoulder, Left Updated: 12/31/21 1601 Bacteria Cult, Aerobe/Anaerobe+Susc No growth to date. Narrative: Bacterial Culture: Placed in Bactec aerobic and Bactec anaerobic bottles Bacteria Cult, Aerobe / Anaerobe+Susc [[id number]] Collected: 12/30/21 1403 Lab Status: Preliminary result Specimen: Shoulder, Left Updated: 12/31/21 1601 Bacteria Cult, Aerobe/Anaerobe+Susc No growth to date. Narrative: Bacterial Culture: Placed in Bactec aerobic and Bactec anaerobic bottles Bacteria Cult, Aerobe / Anaerobe+Susc [[id number]] Collected: 12/30/21 1403 Lab Status: Preliminary result Specimen: Shoulder, Left Updated: 12/31/21 1601 Bacteria Cult, Aerobe/Anaerobe+Susc No growth to date. Narrative: Bacterial Culture: Placed in Bactec aerobic and Bactec anaerobic bottles SARS Coronavirus 2, Molecular Detection, PCR, Varies Asymptomatic [[id number]] Collected: 12/29/21 1111 Lab Status: Final result [...] ----ADDITIONAL INFORMATION---- This RT-PCR test using the [employer] SARS-CoV-2 Assay ( [facility].) performed on the [employer] Two Module System has received Emergency Use Authorization (EUA) by the U.S. Food and Drug Administration, and is modified from the rod mill operator's instructions with a bridging study. Performance characteristics were verified by [facility] in a manner consistent with CLIA requirements. Visit the CDC website: https://www.cdc.gov/coronavirus/ for the most recent guidelines on Coronavirus testing. Fact Sheet for Healthcare Providers: https://www.fda.gov/media/223766/download Fact Sheet for Patients: https://www.fda.gov/media/896070/download ASSESSMENT / PLAN 56-year-old female with a [...] is consistent with aspiration results from original [facility] evaluation which is likely policy services representative of the culprit organism causing her [...] of Infectious Diseases OPAT monitoring program at [phone] after dismissal. Primary service to follow labs while patient is hospitalized. [place] pharmacist to adjust dosing after dismissal 4. [...] satisfaction.? This case was discussed with Dr. aSlvador. We will sign off at this time. Please page Ortho C-ID service pager at [phone] with any questions. ?? Jose Guadalupe Nixon M.D. BAG FRAMER Elvira Duncan, R.NBritton - 01/01/2022 8:16 AM CST Post Anesthesia [...] - Date/Time Bacteria Cult, Aerobe / Anaerobe+Susc [[id number]] Collected: 12/30/21 1411 Lab Status: In process Specimen: Shoulder, Left Updated: 12/30/21 1540 Narrative: Bacterial Culture: Placed in Bactec aerobic and Bactec anaerobic bottles Bacteria Cult, Aerobe / Anaerobe+Susc [[id number]] Collected: 12/30/21 1405 Lab Status: In process Specimen: Synovial Fluid, Left Shoulder Updated: 12/30/21 1519 Narrative: Bacterial Culture: Placed in Bactec aerobic and Bactec anaerobic bottles Bacteria Cult, Aerobe / Anaerobe+Susc [[id number]] Collected: 12/30/21 1404 Lab Status: In process Specimen: Shoulder, Left Updated: 12/30/21 1536 Narrative: Bacterial Culture: Placed in Bactec aerobic and Bactec anaerobic bottles Bacteria Cult, Aerobe / Anaerobe+Susc [[id number]] Collected: 12/30/21 1403 Lab Status: In process Specimen: Shoulder, Left Updated: 12/30/21 1533 Narrative: Bacterial Culture: Placed in Bactec aerobic and Bactec anaerobic bottles Bacteria Cult, Aerobe / Anaerobe+Susc [[id number]] Collected: 12/30/21 1403 Lab Status: In process Specimen: Shoulder, Left Updated: 12/30/21 1538 Narrative: Bacterial Culture: Placed in Bactec aerobic and Bactec anaerobic bottles SARS Coronavirus 2, Molecular Detection, PCR, Varies Asymptomatic [[id number]] Collected: 12/29/21 1111 Lab Status: Final result [...] ----ADDITIONAL INFORMATION---- This RT-PCR test using the [employer] SARS-CoV-2 Assay ( [facility].) performed on the [employer] Two Module System has received Emergency Use Authorization (EUA) by the U.S. Food and Drug Administration, and is modified from the rod mill operator's instructions with a bridging study. Performance characteristics were verified by [facility] in a manner consistent with CLIA requirements. Visit the CDC website: https://www.cdc.gov/coronavirus/ for the most recent guidelines on Coronavirus testing. Fact Sheet for Healthcare Providers: https://www.fda.gov/media/055938/download Fact Sheet for Patients: https://www.Pillars4Life.gov/WillCall/189227/download ASSESSMENT / PLAN IMPRESSION/REPORT/PLAN #1 Status post [...] am, please page Ortho House at [facility] [phone] Trey Phan R.N. - 12/31/2021 7:34 AM [...] - Date/Time Bacteria Cult, Aerobe / Anaerobe+Susc [[id number]] Collected: 12/30/21 1411 Lab Status: In process Specimen: Shoulder, Left Updated: 12/30/21 1540 Narrative: Bacterial Culture: Placed in Bactec aerobic and Bactec anaerobic bottles Bacteria Cult, Aerobe / Anaerobe+Susc [[id number]] Collected: 12/30/21 1405 Lab Status: In process Specimen: Synovial Fluid, Left Shoulder Updated: 12/30/21 1519 Narrative: Bacterial Culture: Placed in Bactec aerobic and Bactec anaerobic bottles Bacteria Cult, Aerobe / Anaerobe+Susc [[id number]] Collected: 12/30/21 1404 Lab Status: In process Specimen: Shoulder, Left Updated: 12/30/21 1536 Narrative: Bacterial Culture: Placed in Bactec aerobic and Bactec anaerobic bottles Bacteria Cult, Aerobe / Anaerobe+Susc [[id number]] Collected: 12/30/21 1403 Lab Status: In process Specimen: Shoulder, Left Updated: 12/30/21 1533 Narrative: Bacterial Culture: Placed in Bactec aerobic and Bactec anaerobic bottles Bacteria Cult, Aerobe / Anaerobe+Susc [[id number]] Collected: 12/30/21 1403 Lab Status: In process Specimen: Shoulder, Left Updated: 12/30/21 1538 Narrative: Bacterial Culture: Placed in Bactec aerobic and Bactec anaerobic bottles SARS Coronavirus 2, Molecular Detection, PCR, Varies Asymptomatic [[id number]] Collected: 12/29/21 1111 Lab Status: Final result [...] ----ADDITIONAL INFORMATION---- This RT-PCR test using the [employer] SARS-CoV-2 Assay ( [facility].) performed on the [employer] Two Module System has received Emergency Use Authorization (EUA) by the U.S. Food and Drug Administration, and is modified from the rod mill operator's instructions with a bridging study. Performance characteristics were verified by [facility] in a manner consistent with CLIA requirements. Visit the CDC website: https://www.cdc.gov/coronavirus/ for the most recent guidelines on Coronavirus testing. Fact Sheet for Healthcare Providers: https://www.fda.gov/media/085636/download Fact Sheet for Patients: https://www.fda.gov/media/528951/download ASSESSMENT / PLAN IMPRESSION/REPORT/PLAN #1 Status post [...] Matos DO Shoulder & Elbow Fellow [facility] For any questions or concerns from 6 am until 6 pm, please page Jam service For urgent matters from 6 pm until 6 am, please page [facility] at [facility] [phone] BAG FRAMER Trey Rdz R.N. - 12/30/2021 4:39 PM [...] Care Plan:continue current management per plan/IPS protocol BAG FRAMER Feli Viveros Pharm.D., R.Ph. - 12/30/2021 11:33 [...] home. She is registered with the state [facility] for medical cannabis and [...] List Status: Pharmacy Complete Set By: Feli Viveros Pharm.D., R.Ph. at 12/30/2021 11:33 AM Taking? [...] Take 150 mg by mouth every morning. rfnctfmupe-uwpqgheentpte-gzyz (ESGIC) 50-325-40 mg per tablet Past Week [...] by mouth 2 (two) times a day. BAG FRAMER documented in this encounter Procedure Notes Soraida [...] to release the adhesive from the skin. [email or web address] BAG FRAMER documented in this encounter Consult Notes Ruth [...] RESECTION SHOULDER.; Surgeon: Cyrus Polk M.D.; Location: [facility] OR ??? BACK SURGERY 1998 lumbar [...] Right Lives With: Alone Receives Help From: drive in theater attendant, Family, Friend(s) ADL Assistance: Required assistance ADL Assistance Comments: Gets help from COMPLIANCE AIDE for her bath/shower and for her meals IADL/Homemaking Assistance: Required assistance IADL/Homemaking Assistance Comments: Gets help for housecleaning Driving: Independent Occupational Role: On disability Prior Mobility/Functional Transfers Level of Reading: Modified independent Gait Devices/Wheelchair Used: Cane Gait [...] session with call light in reach and COMPLIANCE AIDE present, all needs metand questions answered. Contact monitoring: PPE used during therapy: Therapist was wearing the following PPE throughout entire session: surgicalmask and eye protection Patient was wearing a mask during therapy session: yes, when out of room Outcome Measures [facility]: [facility] Basic Mobility (V.2) Raw Score: 17 -[facility] Basic Mobility (V.2) Standardized Score: 39.67 Interpretation: Clinicians answer the -[facility] [...] (min): 36 min Ruth Gonzalez P.T., D.P.T. BAG FRAMER Thao You L.I.C.S.W., M.S.W. - 12/31/2021 2:04 PM CSTAssociated Order(s): IP CONSULT TO CARE MANAGEMENT; IP CONSULT TO CARE MANAGEMENT; IP CONSULT TO CARE MANAGEMENT Psychosocial Assessment SUBJECTIVE DEMOGRAPHIC INFORMATION Person(s) present during interview: Patient Primary care clinic and provider: [facility] Primary Language: Marshallese Legal Information: Legal decision maker for self [...] / Household Status: Patient resides alone in [place], [place]. She lives in a two bedroom apartment. Patient has four adultchildren two of whom live in [place]. Patient son Rafal lives next door to patient. Support Systems: Family members, Friends/neighbors. We have not received permission to contact them. Primary caregiver: Self Accompanied by/Relationship: None Support System: Family members, Friends/neighbors Spirituality / Mormon / Culture: , None History: No Education: High school Employment: Disabled Psychosocial Risk Factors impacting the patient: Resides alone, mental health issues Abuse, Neglect, Maltreatment, Trauma: Current: None reported. Past: None reported. ENVIRONMENTAL SUPPORTS Current Living Situation: Private residence Patient's Home Environment: Resides in a two bedroom apartment on the main [facility] Care Facility Name (if applicable): NA [...] Behavior: Oriented Communication: Reads, writes and speaks Marshallese It is anticipated that the patient will need assistance with .Dressing,bathing, meal prep, housekeeping, shopping ASSISTIVE DEVICES Patient has the following equipment: Eyeglasses, Dentures upper, Dentures lower, cane, walker Patient anticipates potentially needing the following additional equipment: None Transportation needs: Independent to drive, support from family and friends SERVICES REQUESTED Infusion therapy FISH AGENT Formal and Informal Resources: Patient receives home health aid services three times per week and jail visit one time every two weeks through [facility]. FINANCES/INSURANCE Primary insurance: MEDICARE A AND B Secondary insurance: MEDICA ADVANCE DIRECTIVES Advance Directive: Patient does not have advance directive, does not want information DISCHARGE PLANNING Patient is planning on returning home upon her discharge. She currently receives home health aid services and jail through [facility]. Patient also has support from a [...] good support [place] consisting of family, [place]. INTERVENTIONS ?? Psychosocial assessment ?? Rapport building ?? Education on coping with chronic pain. PLAN ?? Social work will continue to follow for discharge planning and support. ?? Social work did speak with Pat at [facility] to confirm home health services. ?? Social work will work on infusion therapy referrals as well as home health/outpatient picc site care and labs. Anticipated barriers to the transition of care/plan: None Joe Ervin, M.S.W. 12/31/2021 BAG FRAMER Jose Guadalupe Nixon M.D. - 12/31/2021 7:31 AM CSTAssociated Order(s): IP CONSULT TO INFECTIOUS DISEASES Infectious Diseases Orthopedic Surgery [facility] Consulting Service Consult Note SUBJECTIVE REASON FOR [...] prompting aspiration (09/25/21) which revealed elevated TNC (95622) with 81% PMNs with cultures positive for1 [...] - Date/Time Bacteria Cult, Aerobe / Anaerobe+Susc [[id number]] Collected: 12/30/21 1411 Lab Status: In process Specimen: Shoulder, Left Updated: 12/30/21 1540 Narrative: Bacterial Culture: Placed in Bactec aerobic and Bactec anaerobic bottles Bacteria Cult, Aerobe / Anaerobe+Susc [[id number]] Collected: 12/30/21 1405 Lab Status: In process Specimen: Synovial Fluid, Left Shoulder Updated: 12/30/21 1519 Narrative: Bacterial Culture: Placed in Bactec aerobic and Bactec anaerobic bottles Bacteria Cult, Aerobe / Anaerobe+Susc [[id number]] Collected: 12/30/21 1404 Lab Status: In process Specimen: Shoulder, Left Updated: 12/30/21 1536 Narrative: Bacterial Culture: Placed in Bactec aerobic and Bactec anaerobic bottles Bacteria Cult, Aerobe / Anaerobe+Susc [[id number]] Collected: 12/30/21 1403 Lab Status: In process Specimen: Shoulder, Left Updated: 12/30/21 1533 Narrative: Bacterial Culture: Placed in Bactec aerobic and Bactec anaerobic bottles Bacteria Cult, Aerobe / Anaerobe+Susc [[id number]] Collected: 12/30/21 1403 Lab Status: In process Specimen: Shoulder, Left Updated: 12/30/21 1538 Narrative: Bacterial Culture: Placed in Bactec aerobic and Bactec anaerobic bottles SARS Coronavirus 2, Molecular Detection, PCR, Varies Asymptomatic [[id number]] Collected: 12/29/21 1111 Lab Status: Final result [...] ----ADDITIONAL INFORMATION---- This RT-PCR test using the [employer] SARS-CoV-2 Assay ( [facility].) performed on the [employer] Two Module System has received Emergency Use Authorization (EUA) by the U.S. Food and Drug Administration, and is modified from the rod mill operator's instructions with a bridging study. Performance characteristics were verified by [facility] in a manner consistent with CLIA requirements. Visit the CDC website: https://www.cdc.gov/coronavirus/ for the most recent guidelines on Coronavirus testing. Fact Sheet for Healthcare Providers: https://www.fda.gov/media/997939/download Fact Sheet for Patients: https://www.fda.gov/media/779880/download ASSESSMENT / PLAN 56-year-old female with a [...] is consistent with aspiration results from original [facility] evaluation which is likely policy services representative of the culprit organism causing her [...] follow along closely. Please page the Ortho [facility]-ID service pager at [phone] with questions. Thank you for the consultation. Jose Guadalupe Nixon M.D. BAG FRAMER Associated attestation - Gucci Salvador M.D. - 12/31/2021 6:07 PM HANDBAG FRAMER DEMOGRAPHIC INFORMATION Clinic Number:[phone] Patient Name: Angie [...] OnQ pump. Transportation provided by her son. BAG FRAMER Fanny Sifuentes R.N. - 12/31/2021 11:00 PM [...] Nasal mucous membranes remain intact Outcome: Progressing BAG FRAMER Ezequiel Hernandez R.N. - 12/30/2021 10:27 PM [...] staff assistance to bathroom. Navin Hernandez R.N. BAG FRAMER documented in this encounter OR Notes Op Note - Cyrus Polk M.D. - 12/30/2021 2:50 PM CST STAFF: Cyrus Polk M.D. RESIDENT: Dario Carrera M.D. PRE-OPERATIVE DIAGNOSIS Left infected reverse arthroplasty. POST-OPERATIVE DIAGNOSIS Left infected reverse arthroplasty. A hearing and speech assistant was necessary for one or more [...] Cyrus Polk M.D. CT CT Job ID: [id number] BAG FRAMER documented in this encounter Miscellaneous Notes Hospital [...] and pain is controlled on oral medications. BAG FRAMER documented in this encounter Plan of Treatment Scheduled Referrals Name Type Priority Associated Diagnoses Order [facility] Outpatient Referral Routine Direct Infection Of Ordered: Health Referral Left Shoulder In 01/01/20 22 Infectious And Parasitic Diseases Classified Elsewhere (HCC) documented as of this encounter Procedures Procedure Name Priority Date/Time Associated Comments Diagnosis PLACE PERIPHERALLY Routine 01/01/2022 12:11 Resul ts for this INSERTED CENTRAL PM HANDBAG FRAMER procedure a re in CATHETER (PICC) the results section. REMOTE OXIMETRY Routine 12/31/2021 5:23 MONITORING CONT. PM HANDBAG FRAMER REMOTE OXIMETRY Routine 12/31/2021 5:23 MONITORING CONT. PM HANDBAG FRAMER BACTERIA / MANDI Routine 12/31/2021 4:04 Result s for this CULTURE, BLOOD PM HANDBAG FRAMER procedure are in the results section. BACTERIA / MANDI Routine 12/31/2021 3:52 Result s for this CULTURE, BLOOD PM HANDBAG FRAMER procedure are in the results section. ADULT OXYGEN THERAPY Routine 12/31/2021 8:01 AM HANDBAG FRAMER CBC WITH Routine 12/31/2021 4:25 Results for this DIFFERENTIAL, B AM HANDBAG FRAMER procedure ar e in the results section. BASIC METABOLIC Routine 12/31/2021 4:25 Results f or this PANEL, S/P AM HANDBAG FRAMER procedure are i n the results section. ADULT OXYGEN THERAPY Routine 12/30/2021 8:01 PM HANDBAG FRAMER ADULT OXYGEN THERAPY Routine 12/30/2021 5:12 PM HANDBAG FRAMER ADULT OXYGEN THERAPY Routine 12/30/2021 5:12 PM HANDBAG FRAMER ADULT OXYGEN THERAPY Routine 12/30/2021 3:46 PM HANDBAG FRAMER ADULT OXYGEN THERAPY Routine 12/30/2021 3:46 PM HANDBAG FRAMER DX SHOULDER LEFT 1 RAD - Timed (for 12/30/2021 3:41 Re sults for this VIEW specific PM HANDBAG FRAMER procedure are i n dates/times) the results section. SURGICAL PATHOLOGY, Routine 12/30/2021 2:15 Shoulder Joint Res ults for this FROZEN LAB PM HANDBAG FRAMER Disorder Left procedure are in the results section. BACTERIA CULT, Routine 12/30/2021 2:11 Results fo r this AEROBE/ANAEROBE+SUSC PM HANDBAG FRAMER procedu re are in the results section. BACTERIA CULT, Routine 12/30/2021 2:05 Results fo r this AEROBE/ANAEROBE+SUSC PM HANDBAG FRAMER procedu re are in the results section. BACTERIA CULT, Routine 12/30/2021 2:04 Results fo r this AEROBE/ANAEROBE+SUSC PM HANDBAG FRAMER procedu re are in the results section. BACTERIA CULT, Routine 12/30/2021 2:03 Results fo r this AEROBE/ANAEROBE+SUSC PM HANDBAG FRAMER procedu re are in the results section. BACTERIA CULT, Routine 12/30/2021 2:03 Results fo r this AEROBE/ANAEROBE+SUSC PM HANDBAG FRAMER procedu re are in the results section. ARTHROPLASTY 12/30/2021 12:34 Shoulder Joint RESECTION SHOULDER PM HANDBAG FRAMER Disorder Left documented in this encounter Results Place peripherally inserted central catheter (PICC) (01/01/2022 12:11 PM HANDBAG FRAMER) Narrative MMODAL - 01/01/2022 12:11 PM HANDBAG FRAMER Soraida Dick R.N. ? 01/01/2022 12:13 PM [...] to release the adhesive from the skin. http://[email or web address]/[email or web address] eportiv Dario Carrera M.D. PROCEDURE/MINOR SURGICAL ORD ERABLES Performing Organization Address City/[facility]/ZIP Code Phon e Number MMODAL MMODAL NA Bacteria / Mandi Culture, Blood #2 (12/31/2021 4:04 PM HANDBAG FRAMER) [facility] Method Time Signature Bacteria/Valerie No growth 01/05/2022 DTL da Culture, after 5 5:02 PM HANDBAG FRAMER Blood days of incubation. Specimen (Source) Anatomical Collection Method Collection Time Re ceived Time Location / / Volume Laterality Blood (Blood, 12/31/2021 4:04 12/31/2021 4:51 Peripheral Draw) PM HANDBAG FRAMER PM HANDBAG FRAMER Comment: Specimen Source Site: Blood Narrative [facility] [place] - 01/05/2022 5:02 PM HANDBAG FRAMER Received Bactec aerobic and Bactec anaer obic bottles Dario Carrera M.D. LAB MICROBIOLOGY - GENERAL O RDERASARAH Performing Organization Address City/[facility] Phon e Number [facility] - [address] [place], [place] [address] [place], [place] [id number] [place] [address] Bacteria / Mandi Culture, Blood #1 (12/31/2021 3:52 PM HANDBAG FRAMER) [facility] Method Time Signature Bacteria/Valerie No growth 01/05/2022 DTL da Culture, after 5 5:02 PM HANDBAG FRAMER Blood days of incubation. Specimen (Source) Anatomical Collection Method Collection Time Re ceived Time Location / / Volume Laterality Blood (Blood, 12/31/2021 3:52 12/31/2021 4:50 Peripheral Draw) PM HANDBAG FRAMER PM HANDBAG FRAMER Comment: Specimen Source Site: Blood Narrative [facility] [place] - 01/05/2022 5:02 PM HANDBAG FRAMER Received Bactec aerobic and Bactec anaer obic bottles Dario Carrera M.D. LAB MICROBIOLOGY - GENERAL O RDERASARAH Performing Organization Address City/[facility]/ZIP Code Phon e Number [facility] - [address] [place], [place] [address] [place], [place] [id number] [place], [place] [address] [address] [facility] (ABNORMAL) CBC with Differential, Blood (12/31/2021 4:25 AM HANDBAG FRAMER) [facility] gist Method Time Signature Hemoglobin 8.9 (L) 11.6 - 12/31/2021 DTL 15.0 g/dL 5:15 AM HANDBAG FRAMER Hematocrit 27.3 (L) 35.5 - 12/31/2021 DTL 44.9 % 5:15 AM HANDBAG FRAMER Erythrocytes 3.26 (L) 3.92 - 12/31/2021 DTL 5.13 5:15 AM HANDBAG FRAMER x10(12)/L MCV 83.7 78.2 - 12/31/2021 DTL 97.9 fL 5:15 AM HANDBAG FRAMER RBC Distrib Width 19.6 (H) 12.2 - 12/31/2021 DTL 16.1 % 5:15 AM HANDBAG FRAMER Platelet Count 274 157 - 371 12/31/2021 DTL x10(9)/L 5:15 AM HANDBAG FRAMER Leukocytes 6.6 3.4 - 9.6 12/31/2021 DTL x10(9)/L 5:15 AM HANDBAG FRAMER Neutrophils 4.91 1.56 - 12/31/2021 DTL 6.45 5:15 AM HANDBAG FRAMER x10(9)/L Lymphocytes 1.10 0.95 - 12/31/2021 DTL 3.07 5:15 AM HANDBAG FRAMER x10(9)/L Monocytes 0.61 0.26 - 12/31/2021 DTL 0.81 5:15 AM HANDBAG FRAMER x10(9)/L Eosinophils <0.03 0.03 - 12/31/2021 DTL 0.48 5:15 AM HANDBAG FRAMER x10(9)/L Basophils <0.03 0.01 - 12/31/2021 DTL 0.08 5:15 AM HANDBAG FRAMER x10(9)/L Specimen Anatomical Collection Method Collection Time Receive d Time (Source) Location / / Volume Laterality Blood (Blood, 12/31/2021 4:25 AM 12/31/19 22 5:04 Venous) HANDBAG FRAMER AM HANDBAG FRAMER Dario Carrera M.D. LAB BLOOD ADD-ON Performing Organization Address City/State/ZIP Code Phon e Number [facility] - [address] [place] [address] [facility] [address] (ABNORMAL) Basic Metabolic Panel (12/31/2021 4:25 AM HANDBAG FRAMER) P athologist Signature Potassium, S 4.4 3.6 - 5.2 12/31/2021 DTL mmol/L 5:35 AM HANDBAG FRAMER Sodium, S 134 (L) 135 - 145 12/31/2021 DTL mmol/L 5:35 AM HANDBAG FRAMER Chloride, S 103 98 - 107 12/31/2021 DTL mmol/L 5:35 AM HANDBAG FRAMER Bicarbonate, S 22 22 - 29 12/31/2021 DTL mmol/L 5:35 AM HANDBAG FRAMER Anion Gap 9 7 - 15 12/31/2021 DTL 5:35 AM HANDBAG FRAMER BUN (Blood Urea 21 6 - 21 12/31/2021 DTL Nitrogen), S mg/dL 5:35 AM HANDBAG FRAMER Creatinine 0.74 0.59 - 12/31/2021 DTL 1.04 mg/dL 5:35 AM HANDBAG FRAMER eGFR-Non 90 >=60 12/31/2021 DTL Black/ mL/min/BSA 5:35 AM HANDBAG FRAMER Congolese Comment: ----ADDITIONAL INFORMATION---- Estimated GFR calculated using the 2009 CKD_EPI creatinine equation. eGFR-Black/ >90 >=60 mL/min/BSA 2021 5:35 AM HANDBAG FRAMER DTL Comment: ----ADDITIONAL INFORMATION---- Estimated GFR calculated using the 2009 CKD_EPI creatinine equation. Calcium, Total, S 8.7 8.6 - 10.0 mg/dL 12/31/2021 5:35 AM HANDBAG FRAMER DTL Glucose, S 138 70 - 140 mg/dL 12/31/2021 5:35 AM HANDBAG FRAMER D TL Specimen Anatomical Collection Method Collection Time Receive d Time (Source) Location / / Volume Laterality Blood (Blood, 12/31/2021 4:25 AM 12/31/19 5:18 Venous) HANDBAG FRAMER AM HANDBAG FRAMER Dario Carrera M.D. LAB BLOOD ADD-ON Performing Organization Address City/State/ZIP Code Phon e Number [facility] - [address] [place], [place] [address] [facility] [place] [address] [facility] [address] DX Shoulder Left 1 View (12/30/2021 3:41 PM HANDBAG FRAMER) Anatomical Region Laterality Modality Upper Extremity, Shoulder, Musculoskeletal RST LOS, Left Computed Radiography Musculoskeletal ARZ LOS, Muskuloskeletal FLA LOS Specimen (Source) Anatomical Collection Method Collection Time Re ceived Time Location / / Volume Laterality 12/30/2021 3:54 PM HANDBAG FRAMER Impressions 12/30/2021 3:59 PM HANDBAG FRAMER Postoperative changes of a left shoulder arthroplasty resection and placement of an antibiotic spacer. Negat lalo for postoperative purposes. Narrative 12/30/2021 3:59 PM HANDBAG FRAMER EXAM: ??DX SHOULDER LEFT 1 VIEW Procedure Note Timothy Resendiz M.D. - 12/30/2021Forma tting of this note might be different from the original. EXAM: DX SHOULDER LEFT 1 VIEW IMPRESSION: Postoperative changes of a left shoulder arthroplasty resection and placement of an antibiotic spacer. Negat lalo for postoperative purposes. Dario [facility] Surgical Pathology, Frozen Lab (12/30/2021 2:15 PM HANDBAG FRAMER) Component Value Ref Test Analysis Performed At [facility] [employer] Scenic Method Time Signature 01/01/2022 METH 8:22 AM HANDBAG FRAMER Participated in Kelly Howard 01/01/2022 METH the D.O.-Pathology 8:22 AM HANDBAG FRAMER Interpretation Resident Report Solomon Marcum M.D. 01/01/2022 METH electronically 8:22 AM HANDBAG FRAMER signed by I verify that I have examined all relevant slides/materials for the specimen(s) and rendered or confirmed the diagnosis. Frozen A. ??Synovium, left shoulder, excision: ??Synovial tissue 01/01/2022 METH Intraoperative with 8:22 AM HANDBAG FRAMER Report acute inflammation (>5 neutrophils/high power field). Signed by Solomon Marcum M.D. 12/31/2021 8:17 AM Gross Description A. ??Received fresh labeled left shoulder is a 1.4 x 0.9 x 01/01/2022 METH 0.4 cm aggregate of red and campbell fibrous tissue, which is 8:22 AM HANDBAG FRAMER soft. ??All submitted for frozen and permanent sections. Grossed by Nikki J. Distad. Block Summary A Left shoulder 01/01/2022 METH A1 Left shoulder-frozen 8:22 AM HANDBAG FRAMER Interpretation FINAL DIAGNOSIS 01/01/2022 METH 8:22 AM HANDBAG FRAMER A. ??Synovium, left shoulder, excision: ??Synovial tissue with acute inflammation (>5 neutrophils/high power field). Specimen (Source) Anatomical Collection Method Collection Time Re ceived Time Location / / Volume Laterality Tissue (Shoulder, 12/30/2021 2:15 PM Left) HANDBAG FRAMER Narrative This result has an attachment that is no t available. Cyrus Polk M.D. LAB SURG PATH ORDERABLES Performing Organization Address [facility] [place]/[facility] Phon e Number [facility] - [address] [place], [place] [address] [facility] [place], [place] [phone] [place] [address] Bacteria Cult, Aerobe / Anaerobe+Susc (12/30/2021 2:11 PM HANDBAG FRAMER) [facility] [employer] Method Time Signature Bacteria Cult, No growth 01/13/2022 DTL Aerobe/Anaerob after 14 4:02 PM HANDBAG FRAMER e+Susc days of incubation. Specimen Anatomical Collection Method Collection Time Receive d Time (Source) Location / / Volume Laterality Shoulder, Left 12/30/2021 2:11 PM 022 3:38 HANDBAG FRAMER PM HANDBAG FRAMER Comment: Specimen Source Site: Tissue #4 Narrative [facility] - 01/13/2022 4:02 PM HANDBAG FRAMER Bacterial Culture: Placed in Bactec aero bic and Bactec anaerobic bottles Cyrus Polk M.D. LAB MICROBIOLOGY - GENERAL O RDERABLES Performing Organization Address City/[facility] Phon e Number [facility] - [address] [place], [place] [address] [facility] DTL [place], [place] [phone] [place] [address] [address] [facility] (ABNORMAL) Bacteria Cult, Aerobe / Anaerobe+Susc (12/30/2021 2:05 PM HANDBAG FRAMER) Component Value Ref Test Analysis Performed At [facility] [employer] Range Method Time Signature Bacteria STAPHYLOCOCCUS EPIDERMIDIS 01/11/2022 DT L Cult, Growth after 4 days 7:55 AM HANDBAG FRAMER Aerobe/Anaero (A) be+Susc Comment: Semi-Urgent Result. Semi-Urgent This is a semi-urgent result [facility] - (ORTIZ) [facility] S Specimen Anatomical Collection Method Collection Time Receive d Time (Source) Location / / Volume Laterality Synovial Fluid, 12/30/2021 2:05 PM 2021 3:17 Left Shoulder HANDBAG FRAMER PM HANDBAG FRAMER Comment: Specimen Source Site: Fluid Narrative [facility] - 01/11/2022 7:55 AM HANDBAG FRAMER Bacterial Culture: Placed in Bactec aero bic [...] City/State/ZIP Code Phon e Number [facility] [address] [place], [place] [address] [place] [address] [facility] [address] Bacteria Cult, Aerobe / Anaerobe+Susc (12/30/2021 2:04 PM HANDBAG FRAMER) [facility] Method Time Signature Bacteria Cult, No growth 01/13/2022 DTL Aerobe/Anaerob after 14 4:02 PM HANDBAG FRAMER e+Susc days of incubation. Specimen Anatomical Collection Method Collection Time Receive d Time (Source) Location / / Volume Laterality Shoulder, Left 12/30/2021 2:04 PM 022 3:34 HANDBAG FRAMER PM HANDBAG FRAMER Comment: Specimen Source Site: Tissue #3 Narrative [facility] [place] - 01/13/2022 4:02 PM HANDBAG FRAMER Bacterial Culture: Placed in Bactec aero bic and Bactec anaerobic bottles Cyrus Polk M.D. LAB MICROBIOLOGY - GENERAL O MARY Performing Organization Address City/[facility] Phon e Number [facility] - [address] [place], [place] [address] [facility] [place], [place] [phone] [place] [address] [facility] Bacteria Cult, Aerobe / Anaerobe+Susc (12/30/2021 2:03 PM HANDBAG FRAMER) [facility] Method Time Signature Bacteria Cult, No growth 01/13/2022 DTL Aerobe/Anaerob after 14 4:02 PM HANDBAG FRAMER e+Susc days of incubation. Specimen Anatomical Collection Method Collection Time Receive d Time (Source) Location / / Volume Laterality Shoulder, Left 12/30/2021 2:03 PM 022 3:37 HANDBAG FRAMER PM HANDBAG FRAMER Comment: Specimen Source Site: Tissue #2 Narrative [facility] [place] - 01/13/2022 4:02 PM HANDBAG FRAMER Bacterial Culture: Placed in Bactec aero bic and Bactec anaerobic bottles Cyrus Polk M.D. LAB MICROBIOLOGY - GENERAL O MARY Performing Organization Address City/State/ZIP Code Phon e Number [facility] - [address] [place], [place] [address] [facility] [place], [place] [phone] [place] [address] [address] [facility] Bacteria Cult, Aerobe / Anaerobe+Susc (12/30/2021 2:03 PM HANDBAG FRAMER) [facility] Method Time Signature Bacteria Cult, No growth 01/13/2022 DTL Aerobe/Anaerob after 14 4:02 PM HANDBAG FRAMER e+Susc days of incubation. Specimen Anatomical Collection Method Collection Time Receive d Time (Source) Location / / Volume Laterality Shoulder, Left 12/30/2021 2:03 PM 02/02/2 022 3:31 HANDBAG FRAMER PM HANDBAG FRAMER Comment: Specimen Source Site: Tissue #1 Narrative [facility] - 01/13/2022 4:02 PM HANDBAG FRAMER Bacterial Culture: Placed in Bactec aero bic and Bactec anaerobic bottles Cyrus Polk M.D. LAB MICROBIOLOGY - GENERAL O RDERABLES Performing Organization Address City/State/ZIP Code Phon e Number [facility] - [address] [place], [place] [address] [facility] 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) Pain Shoulder Left documented in this encounter Administered Medications Inactive Administered Medications - up to 3 most recent administrations Medication Order MAR Action Action Date Dose Rate Site acetaminophen tablet 1,000 mg Given 12/30/2021 12:02 PM HANDBAG FRAMER 1,00 0 mg (TYLENOL) 1,000 mg, oral, Once, On Tue12/30/21 at 1215, For 1 dose, Pre-Op acetaminophen tablet 1,000 mg (TYLENOL) Given 01/01/2022 11:36 AM HANDBAG FRAMER 1,000 mg 1,000 mg, oral, Every 6 hours, First dose on Tue12/30/21 at 1800 Given 01/01/2022 6:28 AM HANDBAG FRAMER 1,000 mg Given 12/31/2021 11:51 PM HANDBAG FRAMER 1,000 mg albuterol nebulizer solution 2.5 mg Given 12/31/2021 4:44 PM HANDBAG FRAMER 2.5 mg 2.5 mg, nebulization, Every 6 hours PRN, wheezing, Starting on Tue12/30/21 at 1711, Albuterol nebs were interchanged for albuterol/levalbuterol MDI (same frequency) atorvastatin tablet 80 mg (LIPITOR) Given 12/31/2021 8:57 PM HANDBAG FRAMER 80 mg 80 mg, oral, Daily at bedtime, First dose on Tue12/30/21 at 2100 Given 12/30/2021 9:55 PM HANDBAG FRAMER 80 mg benzonatate capsule 100 mg (TESSALON PER LES) Given 01/01/2022 3:10 AM HANDBAG FRAMER 100 mg 100 mg, oral, 3 times daily PRN, cough, Starting on Tue12/31/21 at 1702, Swallow whole. Do NOT crush, chew or open capsule. Given 12/31/2021 5:39 PM HANDBAG FRAMER 100 mg bupivacaine PF 0.2 % 550 mL in NaCl New Bag 01/01/2022 3:15 PM HANDBAG FRAMER 6 mL/hr 6 mL/hr 0.9% On-Q pain pump (CB004) 6 mL/hr, nerve catheter, Continuous, Starting on Tue01/01/22 at 1500, PACU & Post-Op, Location: Nerve Catheter Location, Nerve Catheter Location: Interscalene, Device: On-Q Pump bupivacaine PF 0.2 % in Rate/Dose Verify 01/01/2022 1:00 AM HANDBAG FRAMER 6 mL/ hr 6 mL/hr NaCl 0.9% 341 mL infusion (MARCAINE) 6 mL/hr, nerve catheter, Continuous, Starting on Tue12/30/21 at 1600, PACU & Post-Op, Nerve Catheter Location: Interscalene, Device: Hospital Infusion Pump Rate/Dose Verify 12/31/2021 12:11 AM HANDBAG FRAMER 6 mL/hr 6 mL/hr New Bag 12/30/2021 3:49 PM HANDBAG FRAMER 6 mL/hr 6 mL/hr buPROPion XL 24 hr tablet 150 mg (WELLBUTRIN Given 02/2022 8:35 AM HANDBAG FRAMER 150 mg XL) 150 mg, oral, Every morning, First dose on Tue12/31/21 at 0900, Swallow whole. Do NOT crush, chew, or split tablet. Given 12/31/2021 8:16 AM HANDBAG FRAMER 150 mg calcium carbonate chewable tablet Given 12/31/2021 11: 46 PM HANDBAG FRAMER 400 mg of calcium 400 mg of calcium (TUMS) 400 mg of calcium, oral, Every 2 hour PRN, indigestion, Starting on Tue12/30/21 at 1711, Doses listed are in mg of elemental calcium. Take with food. 500 mg calcium carbonate contains 200 mg of elemental calcium. Given 12/31/2021 9:15 PM HANDBAG FRAMER 400 mg of calcium carboxymethylcellulose 0.5 % ophthalmic Given 01/01/2022 1:15 AM HANDBAG FRAMER 2 drops solution 2 drop (REFRESH PLUS) 2 drop, both eyes, 4 times daily PRN, dry eyes, Starting on Tue12/30/21 at 1711 Given 12/31/2021 12:31 PM HANDBAG FRAMER 2 drops Given 12/31/2021 12:23 AM HANDBAG FRAMER 2 drops ceFAZolin in dextrose (iso-os) IVPB 2 New Bag 01/01/2022 6:27 AM HANDBAG FRAMER 2 g 200 mL/hr g (ANCEF) 2 g, intravenous, at 200 mL/hr, Administer over 30 Minutes, Every 8 hours, First dose on Tue12/30/21 at 2200, Start within 8 hours of last IV dose., Drug Monitoring Program: Pharmacist to adjust medication dosing based on indication and drug clearance factors., Indications: Bone and/or joint infection New Bag 12/31/2021 10:32 PM HANDBAG FRAMER 2 g 200 mL/hr New Bag 12/31/2021 2:21 PM HANDBAG FRAMER 2 g 200 mL/hr cefTRIAXone in dextrose (iso-osm) IVPB New Bag 01/01/2022 2:38 PM HANDBAG FRAMER 2 g 200 mL/hr 2 g (ROCEPHIN) 2 g, intravenous, at 200 mL/hr, Administer over 15 Minutes, Daily before lunch, First dose on Tue01/01/22 at 1345, Drug Monitoring Program: Pharmacist to adjust medication dosing based on indication and drug clearance factors., Indications: Bone and/or joint infection cetirizine tablet 10 mg (ZyrTEC) Given 01/01/2022 8:35 AM HANDBAG FRAMER 10 mg 10 mg, oral, 2 times daily, First dose on Tue12/30/21 at 2100, Drug Monitoring Program: Pharmacist to adjust medication dosing based on indication and drug clearance factors. Given 12/31/2021 8:57 PM HANDBAG FRAMER 10 mg Given 12/31/2021 8:16 AM HANDBAG FRAMER 10 mg cholecalciferol (vitamin D3) tablet 25 m cg Given 01/01/2022 8:35 AM HANDBAG FRAMER 25 mcg 25 mcg, oral, Daily, First dose on Tue12/31/21 at 0900, cholecalciferol (vitamin D3) orderable was interchanged for cholecalciferol (vitamin D3) tablet/capsule Given 12/31/2021 8:16 AM HANDBAG FRAMER 25 mcg D5W infusion 10-250 mL/hr, intravenous, [...] 5 mg (VALIUM) Given 12/31/2021 12:31 PM HANDBAG FRAMER 5 mg 5 mg, oral, 4 times daily PRN, muscle spasms, Starting on Tue12/30/21 at 2243 Given 12/31/2021 1:59 AM HANDBAG FRAMER 5 mg diphenhydrAMINE capsule 25 mg (BENADRYL) 25 mg, oral, Daily PRN, itching, Starting on Tue 2 at 0854 diphenhydrAMINE capsule 75 mg (BENADRYL) Given 01/01/2022 8:49 AM HANDBAG FRAMER 75 mg 75 mg, oral, Bedtime PRN, sleep, Starting on Tue12/30/21 at 1715 FLUoxetine capsule 80 mg (PROzac) Given 01/01/2022 8:34 AM HANDBAG FRAMER 80 mg 80 mg, oral, Daily, First dose on Tue12/31/21 at 0900, FLUoxetine orderable was interchanged for FLUoxetine tablet/capsule Given 12/31/2021 8:16 AM HANDBAG FRAMER 80 mg fluticasone furoate 100 mcg/actuation Given 01/01/2022 8:[address] 2 puffs inhaler 2 puff (ARNUITY ELLIPTA) 2 puff, inhalation, 2 times daily, First dose on Tue12/30/21 at 2100, fluticasone furoate 100 mcg was interchanged for fluticasone MDI 110 mcg Given 12/31/2021 9:04 PM HANDBAG FRAMER 2 puffs Given 12/31/2021 8:17 AM HANDBAG FRAMER 2 puffs granisetron (PF) injection 1 mg (KYTRIL) Given 12/30/2021 3:57 PM HANDBAG FRAMER 1 mg 1 mg, intravenous, Once as needed, nausea, vomiting, Starting on Tue12/30/21 at 1546, For 1 dose, PACU (only), If patient does not respond to ondansetron or haloperidol. (order of antiemetic administration - ondansetron then haloperidol then granisetron) haloperidol lactate injection 1 mg (HALD OL) Given 12/30/2021 4:31 PM HANDBAG FRAMER 1 mg 1 mg, intravenous, Every 6 [...] injection 0.2 mg Given 12/30/2021 4:17 PM HANDBAG FRAMER 0.2 mg (DILAUDID) 0.2 mg, intravenous, Every 5 min PRN, moderate pain or score 4-6 of 10, severe pain or score 7-10 of 10, Starting on Tue12/30/21 at 1546, PACU (only), Up to maximum total dose of 2 mg Given 12/30/2021 4:07 PM HANDBAG FRAMER 0.2 mg Given 12/30/2021 3:55 PM HANDBAG FRAMER 0.2 mg HYDROmorphone (PF) injection 0.4 mg Given 01/01/2022 4:56 AM HANDBAG FRAMER 0.4 mg (DILAUDID) 0.4 mg, intravenous, Every 2 hour PRN, severe pain or score 7-10 of 10, Starting on Tue12/30/21 at 1711, For 5 doses, May administer if pain is greater than 7 after scheduled and PRN regimen exhausted. If pain remains greater than 7, notify primary service. Given 12/31/2021 11:35 AM HANDBAG FRAMER 0.4 mg Given 12/31/2021 4:14 AM HANDBAG FRAMER 0.4 mg ipratropium-albuteroL 0.5-2.5 mg/3 mL nebulizer Given 01/01/2022 3:15 AM HANDBAG FRAMER 3 mL solution 3 mL (DUONEB) 3 mL, nebulization, 4 times daily PRN, shortness of breath, wheezing, Starting on Tue12/30/21 at 1711 ketamine injection 10 mg (KETALAR) Given 12/30/2021 12:38 PM HANDBAG FRAMER 10 mg 10 mg, intravenous, Once, On Tue12/30/21 at 1300, For 1 dose, Pre-Op lactated ringers Rate/Dose Change 01/01/2022 1:00 AM HANDBAG FRAMER 20 mL/hr 20 mL/hr 75 mL/hr, intravenous, Continuous, Starting on Tue12/30/21 at 1715, Until patient has 500cc po intake New Bag 12/31/2021 11:46 PM HANDBAG FRAMER 75 mL/hr 75 mL/hr Rate/Dose Change 12/31/2021 3:55 AM HANDBAG FRAMER 20 mL/hr 20 mL/hr lactated ringers Continued from OR 12/30/2021 4:00 PM HANDBAG FRAMER 75 mL/hr 75 mL/hr 75 mL/hr, intravenous, Continuous, Starting on Tue12/30/21 at 1600, PACU & Post-Op lamoTRIgine tablet 200 mg (LaMICtaL) Given 01/01/2022 8:34 AM HANDBAG FRAMER 200 mg 200 mg, oral, 2 times daily, First dose on Tue12/30/21 at 2100 Given 12/31/2021 8:56 PM HANDBAG FRAMER 200 mg Given 12/31/2021 8:16 AM HANDBAG FRAMER 200 mg midazolam (PF) injection 1 mg (VERSED) Given 12/30/2021 12:38 PM HANDBAG FRAMER 2 mg 1 mg, intravenous, Every 2 [...] 4 mg (ZOFRAN) Given 01/01/2022 1:16 AM HANDBAG FRAMER 4 mg 4 mg, intravenous, Every 6 hours PRN, nausea, vomiting, Starting on Tue12/30/21 at 1711, For 48 hours, Reassess for nausea or vomiting after at least 10 minutes. If nausea or vomiting persists administer next ordered antiemetic medications (order for antiemetic medication administration ondansetron then haloperidol then promethazine). Given 12/31/2021 8:16 AM HANDBAG FRAMER 4 mg oxyCODONE 12 hr tablet 20 mg (OxyCONTIN) Given 12/30/2021 12:35 PM HANDBAG FRAMER 20 mg 20 mg, oral, Once, On Tue12/30/21 at 1300, For 1 dose, Pre-Op, Swallow whole. Do NOT crush, chew, or split tablet. oxyCODONE IR tablet 10 mg (ROXICODONE) Given 12/31/2021 10:43 AM HANDBAG FRAMER 10 mg 10 mg, oral, Every 4 hours PRN, severe pain or score 7-10 of 10, Starting on Tue12/30/21 at 1536 Given 12/31/2021 6:19 AM HANDBAG FRAMER 10 mg Given 12/31/2021 12:22 AM HANDBAG FRAMER 10 mg oxyCODONE IR tablet 10 mg (ROXICODONE) Given 12/31/2021 2:21 PM HANDBAG FRAMER 10 mg 10 mg, oral, Every 4 hours PRN, severe pain or score 7-10 of 10, Starting on Tue12/31/21 at 1415 oxyCODONE IR tablet 10 mg (ROXICODONE) Given 01/01/2022 2:38 PM HANDBAG FRAMER 10 mg 10 mg, oral, Every 3 hours PRN, severe pain or score 7-10 of 10, Starting on Tue12/31/21 at 1745 Given 01/01/2022 11:35 AM HANDBAG FRAMER 10 mg Given 01/01/2022 7:07 AM HANDBAG FRAMER 10 mg oxyCODONE IR tablet 5 mg (ROXICODONE) 5 mg, oral, Every 3 hours PRN, moderate pain or score 4-6 of 10, Starting on Tue12/31/21 at 1745, If patient is >75 consider changing to 2.5-5mg scale pantoprazole DR tablet 40 mg (PROTONIX) Given 01/01/2022 3:46 PM HANDBAG FRAMER 40 mg 40 mg, oral, 2 times daily before breakfast and dinner, First dose on Tue12/31/21 at 0700, pantoprazole 40 mg oral twice daily was interchanged for esomeprazole 20 or 40 mg oral twice daily Swallow whole. Do NOT crush, chew, or split tablet. Given 01/01/2022 6:29 AM HANDBAG FRAMER 40 mg Given 12/31/2021 4:47 PM HANDBAG FRAMER 40 mg pregabalin capsule 600 mg (LYRICA) Given 01/01/2022 8:34 AM HANDBAG FRAMER 600 mg 600 mg, oral, 2 times daily, First dose on Tue12/30/21 at 2100 Given 12/31/2021 8:56 PM HANDBAG FRAMER 600 mg Given 12/31/2021 8:15 AM HANDBAG FRAMER 600 mg QUEtiapine tablet 50 mg (SEROquel) Given 12/31/2021 8:57 PM HANDBAG FRAMER 50 mg 50 mg, oral, Daily at bedtime, First dose on Tue12/30/21 at 2100 Given 12/30/2021 9:55 PM HANDBAG FRAMER 50 mg scopolamine base 1 mg Medication Applied 12/30/2021 12:02 PM 1 patch Behind Left Ear over 3 days 1 patch HANDBAG FRAMER (TRANSDERM SCOP) 1 patch, transdermal, Administer over 72 Hours, Once as needed, nausea and vomiting, Starting on Tue12/30/21 at 1201, For 1 dose, Pre-Op, Contains 1.5 mg to deliver 1 mg/72 hours. sennosides-docusate sodium 8.6-50 mg per Given 01/01/2022 8:35 A M HANDBAG FRAMER 1 tablet tablet 1 tablet (SENOKOT-S) 1 tablet, oral, 2 times daily, First dose on Tue12/30/21 at 2100, Do not give if patient has diarrhea. Given 12/31/2021 8:57 PM HANDBAG FRAMER 1 tablet Given 12/31/2021 8:16 AM HANDBAG FRAMER 1 tablet sodium chloride 0.9 % injection [...] injection 3 mL Given 12/31/2021 8:18 AM HANDBAG FRAMER 3 mL 3 mL, intravenous, Every 12 hours scheduled, First dose on Tue12/30/21 at 2100, PACU & Post-Op, Peripheral Intravenous Catheter and Rapid Infusion Catheter, when no infusion to maintain patency Given 12/30/2021 9:53 PM HANDBAG FRAMER 3 mL zonisamide capsule 300 mg (ZONEGRAN) Given 01/01/2022 8:35 AM HANDBAG FRAMER 300 mg 300 mg, oral, 2 times daily, First dose on Tue12/30/21 at 2100, Swallow whole. Do NOT crush, chew or open capsule. Given 12/31/2021 8:57 PM HANDBAG FRAMER 300 mg Given 12/31/2021 8:16 AM HANDBAG FRAMER 300 mg documented in this encounter Active and Recently Administered Medications Times are shown in HANDBAG FRAMER. Scheduled Medication Order 12/30/2021 12/31/2021 01/01/2022 acetaminophen [...] Leticia Pérez, R.N.) 0628 (Given - Provider: Christiano Concepcion.N.)1136 (Given - Provider: Corrie Toscano R.NBritton) 1,000 mg, oral, Every 6 hours, First dose on 2/2/22 at 1800 atorvastatin tablet 80 mg (LIPITOR) 2154 (Given - Prov ider: Ezequiel Hernandez RBetsy) [...] 0636 (New Bag - Provider: Viktoriya Givens RBetsy)1421 (New Bag - Provider: Maci Gonzalez R.N.)2232 (New Bag - Provider: Fanny Sifuentes RBetsy) 0627 (New Bag - Provider: Viktoriya dorado R.NBritton) 2 g, intravenous, at 200 mL/hr, Administ er over 30 Minutes, Every 8 hours, First dose on Tue12/30/21 at 2200, Start within 8 hours of last IV dose., Drug Monitoring Program: Pharmacist to adjust medicati on dosing based on indication and drug c learance factors., Indications: Bone and/or joint infection ceFAZolin injection 2,000 mg (ANCEF) (COMPLETED) 1419 (Given - Provider: Emre Rodriguez APRN, WINDERMAN) 2,000 mg (rounded from 1,747.5 mg = [...] Pre -Op lamoTRIgine tablet 200 mg (LaMICtaL) 2155 (Given - Pro vider: Ezequiel Hernandez RBetsy) 0816 (Given - Provider: Sharifa PaizNBritton)2056 (Given - Provider: Fanny Sifuentes R.N.) 0834 [...] (PROTONIX) 0636 (Given - Provider: Viktoriya Givens RBetsy)1647 (Given - Provider: Fanny Sifuentes R.N.) 0629 [...] Maci Gonzalez R.N.)2056 (Given - Provider: Sharifa KeenNBritton) 0835 (Given - Provider: Corrie Toscano RBrittonNBritton) [...] (ZONEGRAN) 5 (Given - Pro vider: Ezequiel Hernandez, R.N.) [...] in NaCl 0.9% 341 mL infusion (LIZBET VILLA) 1549 (New Bag - Provider: Conchita Carmen [...] R.N.) 0310 (Given - Provider: Viktoriya Givens RBrittonN.) 100 mg, oral, 3 times daily PRN, [...] (TUMS) 2114 (Given - Provider: Fanny Sifuentes RBrittonN.)234 (Given - Provider: Leticia Pérez, R.N.) 400 [...] 1 557 (Given - Provider: Conchita [place] RBetsy) 1 mg, intravenous, Once as needed, [...] ED) 1555 (Given - Provider: Conchita [place] R.N.)1607 (Given - Provider: Conchita [place] R.N.)1617 (Given [...] Gonzalez R.N.) 0116 (Given - Provider: Viktoriya A Chon, R.N.) 4 mg, intravenous, Every 6 hours [...] 1999 (Given - Provider: Ezequiel Hernandez R.N.) 002 (Given - Provider: Viktoriya Givens R.N.)0619 (Given [...] 1) 1739 (Given - Provider: Fanny Sifuentes RBrittonN.)2053 (Given - Provider: Sharifa KeenN.)2351 (Given - Provider: Jonny PérezSBetsy, R.N.) 0303 (Given - Provider: Viktoriya Givens RRebekah.)0707 (Given - Provider: Christiano Concepcion.N.)1135 (Given - Provider: Corrie Toscano R.N.)1438 (Given - Provider: Corrie Toscano R.NBritton) 10 mg, oral, Every 3 hours PRN, severe p ain or score 7-10 of 10, Starting on Clementine 12/31/21 at 1745 oxyCODONE IR tablet 5 mg (ROXICODONE)(Linked Group 1) 1739 (See Alternative - Provider: Sharifa KeenN.)2053 (See Alternative - Provider: Fanny Sifuentes RBrittonNBritton)2351 (See Alternative - Provider: Leticia Pérez, R.N.) [...] over 3 days 1 patch (TRANSDERM S PICK PACK WORKER) (CANCELED) 1202 (Medication Applied - Provider: Manda Barnett R.N.) 0110 (Medication Removed - Provider: Jonny PérezSBetsy, R.N. - Comment: per Patient Request) 1 [...] documented as of this encounter Care Teams Children'S Attendant Relationship Specialty Start Date End Date Elsewhere, Pcp PCP - General Family Medicine 12/25/21 documented as of this encounter
--- OUTSIDE RECORDS SUMMARY | 2022-09-14 12:02 | XMS_ITS | Encounter Summary ---
:1965 Author Organization [facility] Address [address] [place] [address] Care Team Providers Name Role Phone Elsewhere, Pcp Primary Care Provider Unavailable Reason for Visit Reason Comments OPAT Care Coordination Encounter Details Date Type Department Care Team Description 01/22/2022 Clinical Communication Section of Steven Dennis (Care Infectious Diseases E, R.N. Coordination) in [address] [place] [phone] [place], [place] [phone] (Work) [phone] Social History Tobacco Use Types Packs/Day Years [...] you attend temple or Patient refused 2021 latter-day services? Do [...] Miscellaneous Notes Telephone Encounter - Steven Dennis R.N. - 01/25/2022 9:11 AM CST Per Shae Torres PA-C, In that case, she might need a PICC placed in the chest. These need to be placed by IR. ??Is she able to come to [facility] for IR PICC placement? ??If not, we'll [...] spoke to Carolynn, the nurse at [facility]. She spoke to their wound care nurse and she would liketo try some different dressings first before they move the PICC to the chest. They cannot place a PICC in the chest in [place], so if needed, the patient would have to come to [facility]. The patientwill be there at 2 pm today. She will call back with the patient so we all can come up with a plan together. Addendum: We missed a call from Carolynn, infusion nurse at [facility]. Her message stated that PICCsite care was performed and the site looks better. The wound care team has a plan and is hoping thatshe can keep her current PICC. OPERATOR Telephone Encounter - Tejal Rudolph R.N. - 01/22/2022 4:46 PM WASH OPERATOR I have been unable to reach the patient, but I notified nurse Carolynn at [facility] of Dr. Boris Chaidez's recommendation, that they could try moving the line to the other arm and use a midline but avoid a chest PICC. I faxed the order for midline placement. Nurse Carolynn at [facility] questioned whether the midline could be moved to the other (left) arm, because patient wears a sling on that arm. OPERATOR Telephone Encounter - Steven Dennis R.N. - [...] She did get a special dressing from [facility] to use, but it doesn't seem to be helping. Dressing was changed at [facility] today and they applied some guaze to help with the drainage. 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
--- OUTSIDE RECORDS SUMMARY | 2022-09-14 12:03 | XMS_ITS | Encounter Summary ---
:1965 Author Organization [facility] Address [address] [place] [address] Care Team Providers Name Role Phone Unavailable Primary Care Provider Unavailable Reason for Visit Reason Comments Communication results Encounter Details Date Type Department Care Team Description 10/05/2021 Clinical Communication Department of Rossy Polk Orthopedic Surgery Cyrus Souza M.D. (results) in [address] 200 [facility] [phone] Social History Tobacco Use Types Packs/Day Years [...] Cyrus Polk M.D. CT CT Job ID: [id number] BODY REPAIRER documented in this encounter Miscellaneous Notes Telephone Encounter - Sosa Laughlin - 10/05/2021 3:17 PM CST Please list patient for 12/30/21. Thank you BODY REPAIRER Telephone Encounter - Cyrus Polk M.D. - 10/05/2021 11:37 AM CST Dx: left infected shoulder arthroplasty Procedure: left resection shoulder arthroplasty UE82, NESHA, and see me Surgery date: December 30 Thank you BODY REPAIRER Telephone Encounter - Radha Suh - 10/05/2021 11:18 AM CST Ms. Mosquera calls for results of labs, CT and aspiration results ( She is disappointment no one has reached out to her and that she had to call for these) Please call her with results to date BODY REPAIRER documented in this encounter Plan of Treatment Not on filedocumented as of this encounter Visit Diagnoses Not on filedocumented in this encounter Additional Health Concerns Assessment Noted Time PHQ-9 Depression Total Score: 16 02/11/2021 12:00 AM C DT documented as of this encounter
--- OUTSIDE RECORDS SUMMARY | 2022-09-14 12:03 | XMS_ITS | Encounter Summary ---
:1965 Author Organization [facility] Address [address] [place] [address] Care Team Providers Name Role Phone Elsewhere, Pcp Primary Care Provider Unavailable Encounter Details Date Type Department Care Team Description 12/29/2021 Hospital Encounter Department of Alfredo Herrera ative Exam; Radiology, Clifton GonzalesPEmilioCBritton Painful Total Joint Arthroplasty Initial ([facility]) Building, in [address] [place] [phone] [place] [address] [place], [place] (Work) [phone] Social History Tobacco Use [...] you attend taoist or Patient refused 2021 advent services? Do [...] THC multivit-min/iron/folic/ Take 1 tablet by 0 [id number] (HAIR, SKIN AND mouth daily. NAILS ADVANCED [...] 50 mL (2 g 2050 mL 0 /02/202202/11/2022 iso-osm, (ROCEPHIN) 2 total) [...] for this 2+ VIEWS (most inpatients AM PROCESS ASSISTANT Painful Total Joint proc edure are in and all Arthroplasty the results outpatients) Initial (HCC) section. documented in this encounter Results DX Shoulder Left 2+ Views (12/29/2021 10:30 AM PROCESS ASSISTANT) Anatomical Region Laterality Modality Upper Extremity, Shoulder, Musculoskeletal RST LOS, Left Digital Radiography Musculoskeletal ARZ LOS, Muskuloskeletal FLA LOS Specimen (Source) Anatomical Collection Method Collection Time Re ceived Time Location / / Volume Laterality 12/29/2021 10:53 AM PROCESS ASSISTANT Impressions 12/29/2021 10:57 AM PROCESS ASSISTANT Demineralization. Left shoulder arthroplasty revision to a reverse TSA. Developing lucency about the glenoi d component screws when compared back to 11/13/20, compatible with loosening. Pre sumed distal clavicle resection. Incompletely imaged instrumented spinal fusion from the upper cervical spine to the upper thoracic spine. Spinal cord st imulator. At least one old healed left posterior rib fracture. Narrative 12/29/2021 10:57 AM PROCESS ASSISTANT EXAM: ??DX SHOULDER LEFT 2+ VIEWS [...] COVID19 Pending 12/29/2021 12/29/2021 12/29/2021 4:20 PM PROCESS ASSISTANT Assessment Noted Time PHQ-9 Depression Total Score: 16 02/11/2021 12:00 AM C DT documented as of this encounter Care Teams Inside Upholsterer Relationship Specialty Start Date End Date Elsewhere, Pcp PCP - General Family Medicine 12/25/21 documented as of this encounter
--- OUTSIDE RECORDS SUMMARY | 2022-09-14 12:03 | XMS_ITS | Encounter Summary ---
:1965 Author Organization [facility] Address [address] [place] [address] Care Team Providers Name Role Phone Unavailable Primary Care Provider Unavailable Reason for Visit Outpatient (Routine) - Closed Specialty Diagnoses / Procedures Referred By Contact Refer red To Contact Neurology Robert Diehl M. D. [facility] [address] [place] [phone] Referral ID Status Reason Start Date Expiration Date Visits Requ ested Visits Authorized [id number] Closed 09/15/2020 09/15/2021 1 1 Encounter Details Date Type Department Care Team Description 11/18/2021 Virtual Visit Department of Robert Diehl Stroke Cere brovascular Neurology jimmy Celaya M.D. Accident Personal [place], [place] [address] [place] [address] History (Primary Dx) [address] [place] [phone] Social History Tobacco Use Types Packs/Day Years [...] you attend adventist or Patient refused 2021 tenriism services? Do you belong to any clubs or No 05/17/2022 organizations such as adventist groups, unions, fraBioscale or athletic groups, or school groups? How [...] 19 pandemic patient not seen in a [id number] manner. This is a 56-year-old woman with [...] antibiotics she has not been seen by [facility] Orthopedics Department who are planning [...] by: Robert Diehl M.D. 11/18/21 11:46 AM SHUCKER Diagnosis Plan 1. Stroke Cerebrovascular Accident Personal History KER documented in this encounter Plan of Treatment Not on filedocumented as of this encounter Visit Diagnoses Diagnosis Stroke Cerebrovascular Accident Personal History - Primary documented in this encounter Additional Health Concerns Assessment Noted Time PHQ-9 Depression Total Score: 16 02/11/2021 12:00 AM C DT documented as of this encounter
--- OUTSIDE RECORDS SUMMARY | 2022-09-14 12:03 | XMS_ITS | Encounter Summary ---
:1965 Author Organization [facility] Address [address] [place] [address] Care Team Providers Name Role Phone Elsewhere, Pcp Primary Care Provider Unavailable Encounter Details Date Type Department Care Team Description 12/29/2021 Hospital Encounter Department of Alfredo Herrera ative Exam; Laboratory Medicine A, O.P.A.-C. Painful Total Joint Arthroplasty Initial (HCC) and Pathology, [address] [place] [address], in [place] [phone] [place] [phone] [place] [address] (Work) [place], [place] [phone] (Fax) [phone] Social History Tobacco Use Types Packs/Day Years [...] THC multivit-min/iron/folic/ Take 1 tablet by 0 [id number] (HAIR, SKIN AND mouth daily. NAILS ADVANCED [...] 12/29/2021 11:34 Results for this RBC AM LANGUAGE TRANSLATOR procedure are i n the results section. CBC WITH Routine 12/29/2021 11:34 Preoperative Ex am Results for this DIFFERENTIAL, B AM LANGUAGE TRANSLATOR Painful Total Joint proce dure are in Arthroplasty Initial the res ults ([facility]) section. TYPE AND SCREEN Routine 12/29/2021 11:34 Preoperative Ex am Results for this AM LANGUAGE TRANSLATOR Painful Total Joint procedur e are in Arthroplasty Initial the res ults ([facility]) section. BASIC METABOLIC Routine 12/29/2021 11:34 Preoperative Ex am Results for this PANEL, S/P AM LANGUAGE TRANSLATOR Painful Total Joint procedur e are in Arthroplasty Initial the res ults ([facility]) section. documented in this encounter Results Antibody Screen, RBC (12/29/2021 11:34 AM LANGUAGE TRANSLATOR) athologist Signature Antibody Negative Negative 12/29/2021 DTL Screen 12:59 PM LANGUAGE TRANSLATOR Specimen Anatomical Collection Method Collection Time Receive d Time (Source) Location / / Volume Laterality Blood 12/29/2021 11:34 12/29/2021 AM LANGUAGE TRANSLATOR 11:58 AM LANGUAGE TRANSLATOR Alfredo Kamara LAB BLOOD BANK TEST ORDERABL ES Performing Organization Address City/State/ZIP Code Phon e Number [facility] - [address] [place], [place] [address] [facility] [place] [address] Laboratories-[facility] [address] (ABNORMAL) Basic Metabolic Panel (12/29/2021 11:34 AM LANGUAGE TRANSLATOR) P athologist Signature Potassium, S 4.7 3.6 - 5.2 12/29/2021 DTL mmol/L 12:38 PM LANGUAGE TRANSLATOR Sodium, S 143 135 - 145 12/29/2021 DTL mmol/L 12:38 PM LANGUAGE TRANSLATOR Chloride, S 108 (H) 98 - 107 12/29/2021 DTL mmol/L 12:38 PM LANGUAGE TRANSLATOR Bicarbonate, S 24 22 - 29 12/29/2021 DTL mmol/L 12:38 PM LANGUAGE TRANSLATOR Anion Gap 11 7 - 15 12/29/2021 DTL 12:38 PM LANGUAGE TRANSLATOR BUN (Blood Urea 15 6 - 21 12/29/2021 DTL Nitrogen), S mg/dL 12:38 PM LANGUAGE TRANSLATOR Creatinine 0.83 0.59 - 12/29/2021 DTL 1.04 mg/dL 12:38 PM LANGUAGE TRANSLATOR eGFR-Non 78 >=60 12/29/2021 DTL Black/ mL/min/BSA 12:38 PM LANGUAGE TRANSLATOR Kosovan Comment: ----ADDITIONAL INFORMATION---- Estimated GFR calculated using the 2009 CKD_EPI creatinine equation. eGFR-Black/ 90 >=60 mL/min/BSA 2021 12:38 PM LANGUAGE TRANSLATOR DTL Comment: ----ADDITIONAL INFORMATION---- Estimated GFR calculated using the 2009 CKD_EPI creatinine equation. Calcium, Total, S 9.1 8.6 - 10.0 mg/dL 12/29/2021 12:3 8 PM LANGUAGE TRANSLATOR DTL Glucose, S 90 70 - 140 mg/dL 12/29/2021 12:38 PM LANGUAGE TRANSLATOR DTL Specimen Anatomical Collection Method Collection Time Receive d Time (Source) Location / / Volume Laterality Blood (Blood, 12/29/2021 11:34 12/29/2021 Venous) AM LANGUAGE TRANSLATOR 12:13 PM LANGUAGE TRANSLATOR Alfredo Kamara LAB BLOOD ADD-ON Performing Organization Address City/State/ZIP Code Phon e Number [facility] - [address] [place] [address] [address] [facility] [place] [address] [facility] [address] [facility] Type and Screen (with reflex Antibody ID) (12/29/2021 11:34 AM LANGUAGE TRANSLATOR) [facility] Method Time Signature ABORh A Neg Not applicable 12/29/2021 ETRM 12:59 PM LANGUAGE TRANSLATOR Antibody CANCELED 12/29/2021 ETRM Screen 12:59 PM LANGUAGE TRANSLATOR Comment: Result canceled by the ancillar y. Type & Screen Expiration 02/26/2022 23:59 12/29/19 22 12:59 PM LANGUAGE TRANSLATOR ETRM Testing Location Jones DEFAULT 12/29/2021 11:58 AM LANGUAGE TRANSLATOR ETRM Specimen Anatomical Collection Method Collection Time Receive d Time (Source) Location / / Volume Laterality Blood (Blood, 12/29/2021 11:34 12/29/2021 Venous) AM LANGUAGE TRANSLATOR 11:58 AM LANGUAGE TRANSLATOR Alfredo Kamara LAB BLOOD BANK TEST ORDERABL ES Performing Organization Address City/[facility] Phon e Number [facility] - [address] [place] [address] [address] [facility] [place] [address] [facility] [address] [facility] (ABNORMAL) CBC with Differential, Blood (12/29/2021 11:34 AM LANGUAGE TRANSLATOR) [facility] Method Time Signature Hemoglobin 11.2 (L) 11.6 - 12/29/2021 DTL 15.0 g/dL 12:02 PM LANGUAGE TRANSLATOR Hematocrit 34.1 (L) 35.5 - 12/29/2021 DTL 44.9 % 12:02 PM LANGUAGE TRANSLATOR Erythrocytes 4.04 3.92 - 12/29/2021 DTL 5.13 12:02 PM LANGUAGE TRANSLATOR x10(12)/L MCV 84.4 78.2 - 12/29/2021 DTL 97.9 fL 12:02 PM LANGUAGE TRANSLATOR RBC Distrib Width 20.2 (H) 12.2 - 12/29/2021 DTL 16.1 % 12:02 PM LANGUAGE TRANSLATOR Platelet Count 324 157 - 371 12/29/2021 DTL x10(9)/L 12:02 PM LANGUAGE TRANSLATOR Leukocytes 5.1 3.4 - 9.6 12/29/2021 DTL x10(9)/L 12:02 PM LANGUAGE TRANSLATOR Neutrophils 3.08 1.56 - 12/29/2021 DTL 6.45 12:02 PM LANGUAGE TRANSLATOR x10(9)/L Lymphocytes 1.39 0.95 - 12/29/2021 DTL 3.07 12:02 PM LANGUAGE TRANSLATOR x10(9)/L Monocytes 0.43 0.26 - 12/29/2021 DTL 0.81 12:02 PM LANGUAGE TRANSLATOR x10(9)/L Eosinophils 0.17 0.03 - 12/29/2021 DTL 0.48 12:02 PM LANGUAGE TRANSLATOR x10(9)/L Basophils 0.05 0.01 - 12/29/2021 DTL 0.08 12:02 PM LANGUAGE TRANSLATOR x10(9)/L Specimen Anatomical Collection Method Collection Time Receive d Time (Source) Location / / Volume Laterality Blood (Blood, 12/29/2021 11:34 12/29/2021 Venous) AM LANGUAGE TRANSLATOR 11:54 AM LANGUAGE TRANSLATOR Alfredo Kamara LAB BLOOD ADD-ON Performing Organization Address City/State/ZIP Code Phon e Number [facility] - [address] [place] [address] [address] [facility] [place] [place] [address] [facility] [address] documented in this encounter Visit Diagnoses Diagnosis Preoperative Exam Painful Total Joint Arthroplasty Initial (HCC) documented in this encounter Additional Health Concerns Assessment Noted Time PHQ-9 Depression Total Score: 16 02/11/2021 12:00 AM C DT documented as of this encounter Care Teams Drug Safety Associate Relationship Specialty Start Date End Date Elsewhere, Pcp PCP - General Family Medicine 12/25/21 documented as of this encounter
--- OUTSIDE RECORDS SUMMARY | 2022-09-14 12:03 | XMS_ITS | Encounter Summary ---
:1965 Author Organization [facility] Address [address] [place] [id number] Care Team Providers Name Role Phone Elsewhere, Pcp Primary Care Provider Unavailable Reason for Visit Outpatient (Routine) - Closed Specialty Diagnoses / Procedures Referred By Contact Refer red To Contact Anesthesiology Diagnoses Preoperative Exam Painful Total Joint Arthroplasty Initial (HCC) Alfredo Herrera [facility] [address] [place] [phone] Referral ID Status Reason Start Date Expiration Date Visits Requ ested Visits Authorized [id number] Closed 10/13/2021 10/13/2022 1 1 Encounter Details Date Type Department Care Team Description 12/29/2021 Comprehensive Visit Preoperative Cayetano Herrera, [facility] [address] [place] [address] [phone] Preanesthetic Medical Exam (Primary Dx); Evaluation Center Etta Lyle M.D. 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 Do [...] Comments Blood Pressure 125/78 12/29/2021 1:21 PM LOADING INSPECTOR Pulse 64 12/29/2021 1:21 PM LOADING INSPECTOR Temperature 36.1 ??C (97 ??F) 12/29/2021 1:01 PM LOADING INSPECTOR Respiratory Rate - - Oxygen Saturation 97% 12/29/2021 1:21 PM LOADING INSPECTOR Inhaled Oxygen Concentration - - Weight 72.6 kg (160 lb 0.9 oz) 12/29/2021 1:01 PM LOADING INSPECTOR Height 152 cm (4' 11.84) 12/29/2021 1:01 PM LOADING INSPECTOR Body Mass Index 31.42 12/29/2021 1:01 PM LOADING INSPECTOR documented in this encounter H&P Notes Etta [...] RCRI score: 1; 6% risk of , CA, or cardiac arrest OBJECTIVE OBJECTIVE PHYSICAL EXAMINATION [...] Due To Embolism Right Vertebral Artery ([facility]) # Aneurysm Cerebral Unruptured ([facility]) # Dissection Vertebral Artery ([facility]) # 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 Written and verbal instructions given on medication [...] Lyle M.D. PGY-3, Anesthesiology and Perioperative Medicine [facility] ING INSPECTOR documented in this encounter Plan of [...] COVID19 Pending 12/29/2021 12/29/2021 12/29/2021 4:20 PM LOADING INSPECTOR Assessment Noted Time PHQ-9 Depression Total Score: 16 02/11/2021 12:00 AM C DT documented as of this encounter Care Teams Miniature Set Designer Relationship Specialty Start Date End Date Elsewhere, Pcp PCP - General Family Medicine 12/25/21 documented as of this encounter
--- OUTSIDE RECORDS SUMMARY | 2022-09-14 12:03 | XMS_ITS | Encounter Summary ---
:1965 Author Organization [facility] Address [address] [place] [address] Care Team Providers Name Role Phone Elsewhere, Pcp Primary Care Provider Unavailable Encounter Details Date Type Department Care Team Description 12/30/2021 Surgery RST SEBAS MORAN OR Cyrus Polk, ARTHROPLASTY RESECTION [address] [facility] [place] [address] [address] [facility] [phone] [place] [phone] Social History Tobacco Use Types Packs/Day Years [...] Comments Blood Pressure 119/74 12/30/2021 12:47 PM GUMMED TAPE PRESS OPERATOR Pulse 79 12/30/2021 12:47 PM GUMMED TAPE PRESS OPERATOR Temperature 36.8 ??C (98.2 ??F) 12/30/2021 11:22 AM GUMMED TAPE PRESS OPERATOR Respiratory Rate 20 12/30/2021 12:47 PM GUMMED TAPE PRESS OPERATOR Oxygen Saturation 99% 12/30/2021 12:47 PM GUMMED TAPE PRESS OPERATOR Inhaled Oxygen Concentration - - Weight 69.9 kg (154 lb 1.6 12/30/2021 11:22 AM oz) GUMMED TAPE PRESS OPERATOR Height 150.5 cm (4' 11.25) 12/30/2021 11:22 AM no shoe s/boots GUMMED TAPE PRESS OPERATOR Body Mass Index 30.86 12/30/2021 11:22 AM GUMMED TAPE PRESS OPERATOR documented in this encounter Discharge Summaries Dario Carrera M.D. - 01/01/2022 8:50 AM CST DISCHARGE SUMMARY BRIEF OVERVIEW Hospital: [facility] Discharge Provider: Cyrus Polk M.D. [...] OR DISCHARGE DISPOSITION Home-Health Care [facility] [6] ACTIVE ISSUES REQUIRING FOLLOW UP Active shoulder infection OUTPATIENT FOLLOW UP Scheduled Appointments 02/25/2022 9:15 AM Cyrus Polk M.D. Orthopedic Surgery 02/25/2022 10:20 AM LAB MISC MED SCREEN [facility] [address] Laboratory Medicine For appointment details refer to your Patient Appointment Guide. TEST RESULTS PENDING AT DISCHARGE Pending Labs Order Current Status Bacteria / Camelia Culture, Blood #1 In process Bacteria / Camelia Culture, Blood #2 In process Bacteria Cult, [...] were provided to the patient and caregiver(s). ED TAPE PRESS OPERATOR documented in this encounter Discharge Instructions AttachmentsThe following attachments cannot be sent through Care Everywhere. Continuous Nerve-Block Infusion System: Often called a ???pain pump?? (Estonian) documented in this encounter Medications at Time [...] needed. multivit-min/iron/folic/ Take 1 tablet by 0 [id number] (HAIR, SKIN AND mouth daily. NAILS ADVANCED [...] signs of local anesthetic systemic toxicity, occur. ED TAPE PRESS OPERATOR Fatemeh Pena R.N. - 01/01/2022 5:28 PM [...] when she got up for the day. ED TAPE PRESS OPERATOR Ruth Gonzalez PAna, D.P.T. - 01/01/2022 4:29 [...] mask during therapy session: no Outcome Measures [facility] Inpatient Short Form: -[facility] Basic Mobility (V.2) How much [...] 3-5 steps with a railing?: A Little -[facility] Basic Mobility (V.2) Raw Score: 23 -[facility] Basic Mobility (V.2) Standardized Score: 50.88 Interpretation: Clinicians answer the -[facility] Inpatient Short Form based on [...] is not available [facility] by prescription. Barriers to Discharge [...] (min): 23 min Ruth Gonzalez P.T., D.P.T. ED TAPE PRESS OPERATOR Elvira Duncan R.N. - 01/01/2022 3:21 PM [...] educational pamphlet Continuous Nerve-Block Infusion System ( [id number]).?? Discussed at home removal of nervecatheter, signs of toxicity, and provided the 20/06 number to call with questions.?? All questions answered. On-Q infusion will end Wednesday 01/03 at 2230. Informed patient she may wait until Tuesday morning to remove if she is sleeping. Note OnQ will not be empty as running at 6ml/hr with fill of 550cc. She is aware of this. ED TAPE PRESS OPERATOR Thao You L.I.C.S.W., M.S.W. - 01/01/2022 11:23 AM CST SUBJECTIVE Referral Data The patient was seen for ongoing discharge needs. A list of infusion options (that patient/family geographically resides or requests) has been provided to and reviewed with patient/family. Disclaimers: Financial disclosure provided informing patient of our ownership and financial relationship of the [facility]/home health & hospice agencies. Reviewed insurance coverage, [...] Selected Services Address Phone Fax Patient Preferred [facility] Infusion and IV Therapy [address], [place] [address] [phone] -- Contact: Intake NURSING: - Adjust the [...] draws will be managed by Outpatient Facility: [facility] Address: [address] [place] [address] Contact: Princess Jimenez will provide IV access [...] continue to follow. Joe Ervin, M.S.W. 01/01/2022 ED TAPE PRESS OPERATOR Gucci Salvador M.D. - 01/01/2022 10:45 AM CST DEMOGRAPHIC INFORMATION [facility] Number:[phone] Patient Name: Angie Mosquera Service: Orthopedics [...] questions answered to patient's satisfaction. Please page [phone] for questions. 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 [id number] Pamela Leonard PharmBrittonDBritton, R.Ph. - 01/01/2022 10:14 AM CST Pharmacist [...] on post-operative opioids Pamela Crawford PharmAlejandrina, R.Ph. [phone] Jose Guadalupe Washington M.D. - 01/01/2022 8:31 AM CST Infectious Diseases Orthopedic Surgery [facility] Consulting Service Progress Note SUBJECTIVE -No acute [...] Procedure Component Value - Date/Time Bacteria / Camelia Culture, Blood #2 [[id number]] Collected: 12/31/21 1604 Lab Status: In process Specimen: Blood, Peripheral Draw Updated: 12/31/211650 Narrative: Received Bactec aerobic and Bactec anaerobic bottles Specimen Information: Specimen ID: [id number] Specimen Source: Blood, Peripheral Draw Specimen Comment: Specimen Source Site: Blood Specimen Collection Start Date: 12/31/2021 4:05 PM Specimen Received Date: 12/31/2021 4:51 PM Specimen ID: [id number] Specimen Source: Blood, Peripheral Draw Specimen Comment: Specimen Source Site: Blood Specimen Collection Start Date: 12/31/2021 4:05 PM Specimen Received Date: 12/31/2021 4:51 PM Specimen ID: [id number] Specimen Source: Blood, Peripheral Draw Specimen Comment: Specimen Source Site: Blood Specimen Collection Start Date: 12/31/2021 4:04 PM Specimen Received Date: 12/31/2021 4:51 PM Bacteria / Camelia Culture, Blood #1 [[id number]] Collected: 12/31/21 1552 Lab Status: In process Specimen: Blood, Peripheral Draw Updated: 12/31/21 1651 Narrative: Received Bactec aerobic and Bactec anaerobic bottles Specimen Information: Specimen ID: [id number] Specimen Source: Blood, Peripheral Draw Specimen Comment: Specimen Source Site: Blood Specimen Collection Start Date: 12/31/2021 3:52 PM Specimen Received Date: 12/31/2021 4:50 PM Specimen ID: [id number] Specimen Source: Blood, Peripheral Draw Specimen Comment: Specimen Source Site: Blood Specimen Collection Start Date: 12/31/2021 3:53 PM Specimen Received Date: 12/31/2021 4:50 PM Specimen ID: [id number] Specimen Source: Blood, Peripheral Draw Specimen Comment: Specimen Source Site: Blood Specimen Collection Start Date: 12/31/2021 3:53 PM Specimen Received Date: 12/31/2021 4:50 PM Bacteria Cult, Aerobe / Anaerobe+Susc [[id number]] Collected: 12/30/21 1411 Lab Status: Preliminary result Specimen: Shoulder, Left Updated: 12/31/21 1601 Bacteria Cult, Aerobe/Anaerobe+Susc No growth to date. Narrative: Bacterial Culture: Placed in Bactec aerobic and Bactec anaerobic bottles Bacteria Cult, Aerobe / Anaerobe+Susc [[id number]] Collected: 12/30/21 1405 Lab Status: Preliminary result Specimen: Synovial Fluid, Left Shoulder Updated: 12/31/21 1601 Bacteria Cult, Aerobe/Anaerobe+Susc No growth to date. Narrative: Bacterial Culture: Placed in Bactec aerobic and Bactec anaerobic bottles Bacteria Cult, Aerobe / Anaerobe+Susc [[id number]] Collected: 12/30/21 1404 Lab Status: Preliminary result Specimen: Shoulder, Left Updated: 12/31/21 1601 Bacteria Cult, Aerobe/Anaerobe+Susc No growth to date. Narrative: Bacterial Culture: Placed in Bactec aerobic and Bactec anaerobic bottles Bacteria Cult, Aerobe / Anaerobe+Susc [[id number]] Collected: 12/30/21 1403 Lab Status: Preliminary result Specimen: Shoulder, Left Updated: 12/31/21 1601 Bacteria Cult, Aerobe/Anaerobe+Susc No growth to date. Narrative: Bacterial Culture: Placed in Bactec aerobic and Bactec anaerobic bottles Bacteria Cult, Aerobe / Anaerobe+Susc [[id number]] Collected: 12/30/21 1403 Lab Status: Preliminary result Specimen: Shoulder, Left Updated: 12/31/21 1601 Bacteria Cult, Aerobe/Anaerobe+Susc No growth to date. Narrative: Bacterial Culture: Placed in Bactec aerobic and Bactec anaerobic bottles SARS Coronavirus 2, Molecular Detection, PCR, Varies Asymptomatic [[id number]] Collected: 12/29/21 1111 Lab Status: Final result [...] ----ADDITIONAL INFORMATION---- This RT-PCR test using the Picatcha SARS-CoV-2 Assay ( Hypios) performed on the Picatcha Two Module System has received Emergency Use Authorization (EUA) by the U.S. Food and Drug Administration, and is modified from the consultant technology's instructions with a bridging study. Performance characteristics were verified by [facility] in a manner consistent with CLIA requirements. Visit the CDC website: https://www.cdc.gov/coronavirus/ for the most recent guidelines on Coronavirus testing. Fact Sheet for Healthcare Providers: https://www.fda.gov/media/081272/download Fact Sheet for Patients: https://www.fda.gov/media/124598/download ASSESSMENT / PLAN 56-year-old female with a [...] is consistent with aspiration results from original [facility] evaluation which is likely account services representative of the culprit organism causing [...] of Infectious Diseases OPAT monitoring program at [phone] after dismissal. Primary service to follow labs while patient is hospitalized. [facility] pharmacist to adjust dosing after dismissal 4. [...] completion of therapy. Treatment plan reviewed with Britton Demetri, who expressed understanding. All questions answered to patient's satisfaction.? This case was discussed with Dr. Salvador. We will sign off at this time. Please page Ortho C-ID service pager at [phone] with any questions. ?? Jose Guadalupe Nixon [...] - Date/Time Bacteria Cult, Aerobe / Anaerobe+Susc [[id number]] Collected: 12/30/21 1411 Lab Status: In process Specimen: Shoulder, Left Updated: 12/30/21 1540 Narrative: Bacterial Culture: Placed in Bactec aerobic and Bactec anaerobic bottles Bacteria Cult, Aerobe / Anaerobe+Susc [[id number]] Collected: 12/30/21 1405 Lab Status: In process Specimen: Synovial Fluid, Left Shoulder Updated: 12/30/21 1519 Narrative: Bacterial Culture: Placed in Bactec aerobic and Bactec anaerobic bottles Bacteria Cult, Aerobe / Anaerobe+Susc [[id number]] Collected: 12/30/21 1404 Lab Status: In process Specimen: Shoulder, Left Updated: 12/30/21 1536 Narrative: Bacterial Culture: Placed in Bactec aerobic and Bactec anaerobic bottles Bacteria Cult, Aerobe / Anaerobe+Susc [[id number]] Collected: 12/30/21 1403 Lab Status: In process Specimen: Shoulder, Left Updated: 12/30/21 1533 Narrative: Bacterial Culture: Placed in Bactec aerobic and Bactec anaerobic bottles Bacteria Cult, Aerobe / Anaerobe+Susc [[id number]] Collected: 12/30/21 1403 Lab Status: In process Specimen: Shoulder, Left Updated: 12/30/21 1538 Narrative: Bacterial Culture: Placed in Bactec aerobic and Bactec anaerobic bottles SARS Coronavirus 2, Molecular Detection, PCR, Varies Asymptomatic [[id number]] Collected: 12/29/21 1111 Lab Status: Final result [...] ----ADDITIONAL INFORMATION---- This RT-PCR test using the Picatcha SARS-CoV-2 Assay ( Media Armor.) performed on the Picatcha Two Module System has received Emergency Use Authorization (EUA) by the U.S. Food and Drug Administration, and is modified from the consultant technology's instructions with a bridging study. Performance characteristics were verified by [facility] in a manner consistent with CLIA requirements. Visit the CDC website: https://www.cdc.gov/coronavirus/ for the most recent guidelines on Coronavirus testing. Fact Sheet for Healthcare Providers: https://www.fda.gov/media/734460/download Fact Sheet for Patients: https://www.fda.gov/media/518286/download ASSESSMENT / PLAN IMPRESSION/REPORT/PLAN #1 Status post [...] pm until 6 am, please page Ortho [place] [facility] [phone] ED TAPE PRESS OPERATOR Abrahan Rdz R.N. - 12/31/2021 7:34 AM CST [...] with onq pump later today or tomorrow ED TAPE PRESS OPERATOR Jey Matos D.O. - 12/31/2021 6:53 AM [...] - Date/Time Bacteria Cult, Aerobe / Anaerobe+Susc [[id number]] Collected: 12/30/21 1411 Lab Status: In process Specimen: Shoulder, Left Updated: 12/30/21 1540 Narrative: Bacterial Culture: Placed in Bactec aerobic and Bactec anaerobic bottles Bacteria Cult, Aerobe / Anaerobe+Susc [[id number]] Collected: 12/30/21 1405 Lab Status: In process Specimen: Synovial Fluid, Left Shoulder Updated: 12/30/21 1519 Narrative: Bacterial Culture: Placed in Bactec aerobic and Bactec anaerobic bottles Bacteria Cult, Aerobe / Anaerobe+Susc [[id number]] Collected: 12/30/21 1404 Lab Status: In process Specimen: Shoulder, Left Updated: 12/30/21 1536 Narrative: Bacterial Culture: Placed in Bactec aerobic and Bactec anaerobic bottles Bacteria Cult, Aerobe / Anaerobe+Susc [[id number]] Collected: 12/30/21 1403 Lab Status: In process Specimen: Shoulder, Left Updated: 12/30/21 1533 Narrative: Bacterial Culture: Placed in Bactec aerobic and Bactec anaerobic bottles Bacteria Cult, Aerobe / Anaerobe+Susc [[id number]] Collected: 12/30/21 1403 Lab Status: In process Specimen: Shoulder, Left Updated: 12/30/21 1538 Narrative: Bacterial Culture: Placed in Bactec aerobic and Bactec anaerobic bottles SARS Coronavirus 2, Molecular Detection, PCR, Varies Asymptomatic [[id number]] Collected: 12/29/21 1111 Lab Status: Final result [...] ----ADDITIONAL INFORMATION---- This RT-PCR test using the Picatcha SARS-CoV-2 Assay ( Media Armor.) performed on the Picatcha Two Module System has received Emergency Use Authorization (EUA) by the U.S. Food and Drug Administration, and is modified from the consultant technology's instructions with a bridging study. Performance characteristics were verified by [facility] in a manner consistent with CLIA requirements. Visit the CDC website: https://www.cdc.gov/coronavirus/ for the most recent guidelines on Coronavirus testing. Fact Sheet for Healthcare Providers: https://www.fda.gov/media/914510/download Fact Sheet for Patients: https://www.fda.gov/media/595500/download ASSESSMENT / PLAN IMPRESSION/REPORT/PLAN #1 Status post [...] Jey Matos, DO Shoulder & Elbow Fellow [facility] Orthopaedic Surgery For any questions or concerns from 6 am until 6 pm, please page Jam service For urgent matters from 6 pm until 6 am, please page Ortho House at [facility] [phone] ED TAPE PRESS OPERATOR Abrahan Rdz R.N. - 12/30/2021 4:39 PM CST [...] 3/10 Highest pain score last 24 hours: 10 Patient Care Plan:continue current management per plan/IPS [...] Take 150 mg by mouth every morning. hvkfzzxchy-zgupalavmznor-qxfc (ESGIC) 50-325-40 mg per tablet Past Week [...] by mouth 2 (two) times a day. ED TAPE PRESS OPERATOR documented in this encounter Procedure Notes Soraida [...] to release the adhesive from the skin. http://[employer]/products/secureportiv ED TAPE PRESS OPERATOR documented in this encounter Consult Notes Ruth [...] (HCC) ??? Nicotine Dependence Unspecified ??? 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 Direct Infection Of [...] Lives With: Alone Receives Help From: flight attendant, Family, Friend(s) ADL Assistance: Required assistance ADL Assistance Comments: Gets help from SORTING LIVESTOCK WORKER for her bath/shower and for her meals IADL/Homemaking Assistance: Required assistance IADL/Homemaking Assistance Comments: Gets help for housecleaning Driving: Independent Occupational Role: On disability Prior Mobility/Functional Transfers Level of [place]: Modified independent Gait Devices/Wheelchair Used: Cane Gait [...] session with call light in reach and SORTING LIVESTOCK WORKER present, all needs metand questions answered. Contact monitoring: PPE used during therapy: Therapist was wearing the following PPE throughout entire session: surgicalmask and eye protection Patient was wearing a mask during therapy session: yes, when out of room Outcome Measures AM-[facility] Inpatient Short Form: AM-[facility] Basic Mobility (V.2) How much [...] 3-5 steps with a railing?: A Lot -[facility] Basic Mobility (V.2) Raw Score: 17 -[facility] Basic Mobility (V.2) Standardized Score: 39.67 Interpretation: Clinicians answer the -[facility] Inpatient Short Form based on [...] (min): 36 min Ruth Gonzalez P.T., D.P.T. ED TAPE PRESS OPERATOR Thao You L.I.C.S.W., M.S.W. - 12/31/2021 2:04 PM CSTAssociated Order(s): IP CONSULT TO CARE MANAGEMENT; IP CONSULT TO CARE MANAGEMENT; IP CONSULT TO CARE MANAGEMENT Psychosocial Assessment SUBJECTIVE DEMOGRAPHIC INFORMATION Person(s) present during interview: Patient Primary care clinic and provider: [facility] Primary Language: Estonian Legal Information: Legal decision maker for self [...] / Household Status: Patient resides alone in [place], [place]. She lives in a two bedroom apartment. Patient has four adultchildren two of whom live in [place]. Patient son Rafal lives next door to patient. Support Systems: Family members, Friends/neighbors. We have not received permission to contact them. Primary caregiver: Self Accompanied by/Relationship: None Support System: Family members, Friends/neighbors Spirituality / Alevism / Culture: , None History: No Education: High school Employment: Disabled Psychosocial Risk Factors impacting the patient: Resides alone, mental health issues Abuse, Neglect, Maltreatment, Trauma: Current: None reported. Past: None reported. ENVIRONMENTAL SUPPORTS Current Living Situation: Private residence Patient's Home Environment: Resides in a two bedroom apartment on the [address] [facility] Care Facility Name (if applicable): [...] Behavior: Oriented Communication: Reads, writes and speaks Estonian It is anticipated that the patient will need assistance with .Dressing,bathing, meal prep, housekeeping, shopping ASSISTIVE DEVICES Patient has the following equipment: Eyeglasses, Dentures upper, Dentures lower, cane, walker Patient anticipates potentially needing the following additional equipment: None Transportation needs: Independent to drive, support from family and friends SERVICES REQUESTED Infusion therapy SAP PORTAL DEVELOPER Formal and Informal Resources: Patient receives home [...] home health aid services and alf through [facility]. Patient also has [...] good support group consisting of family, friends and[place] health services through [facility]. INTERVENTIONS ?? Psychosocial assessment ?? Rapport building [...] of care/plan: None Joe Ervin, M.S.W. 12/31/2021 ED TAPE PRESS OPERATOR Jose Guadalupe Nixon M.D. - 12/31/2021 7:31 AM CSTAssociated Order(s): IP CONSULT TO INFECTIOUS DISEASES Infectious Diseases Orthopedic Surgery [facility] Consulting Service Consult Note SUBJECTIVE REASON FOR [...] on OSH AST. She presented to [facility] (unclear if on antibiotics) for further evaluation given persistent L shoulder pain 08/2021 prompting aspiration (09/25/21) which revealed elevated TNC (62008) with 81% PMNs with cultures positive for1 [...] debridement. The patient was subsequently admitted to [facility] for further management. Intraoperative cultures and synovial [...] - Date/Time Bacteria Cult, Aerobe / Anaerobe+Susc [[id number]] Collected: 12/30/21 1411 Lab Status: In process Specimen: Shoulder, Left Updated: 12/30/21 1540 Narrative: Bacterial Culture: Placed in Bactec aerobic and Bactec anaerobic bottles Bacteria Cult, Aerobe / Anaerobe+Susc [[id number]] Collected: 12/30/21 1405 Lab Status: In process Specimen: Synovial Fluid, Left Shoulder Updated: 12/30/21 1519 Narrative: Bacterial Culture: Placed in Bactec aerobic and Bactec anaerobic bottles Bacteria Cult, Aerobe / Anaerobe+Susc [[id number]] Collected: 12/30/21 1404 Lab Status: In process Specimen: Shoulder, Left Updated: 12/30/21 1536 Narrative: Bacterial Culture: Placed in Bactec aerobic and Bactec anaerobic bottles Bacteria Cult, Aerobe / Anaerobe+Susc [[id number]] Collected: 12/30/21 1403 Lab Status: In process Specimen: Shoulder, Left Updated: 12/30/21 1533 Narrative: Bacterial Culture: Placed in Bactec aerobic and Bactec anaerobic bottles Bacteria Cult, Aerobe / Anaerobe+Susc [[id number]] Collected: 12/30/21 1403 Lab Status: In process Specimen: Shoulder, Left Updated: 12/30/21 1538 Narrative: Bacterial Culture: Placed in Bactec aerobic and Bactec anaerobic bottles SARS Coronavirus 2, Molecular Detection, PCR, Varies Asymptomatic [[id number]] Collected: 12/29/21 1111 Lab Status: Final result [...] ----ADDITIONAL INFORMATION---- This RT-PCR test using the Picatcha SARS-CoV-2 Assay ( Hypios) performed on the Picatcha Two Module System has received Emergency Use Authorization (EUA) by the U.S. Food and Drug Administration, and is modified from the consultant technology's instructions with a bridging study. Performance characteristics were verified by [facility] in a manner consistent with CLIA requirements. Visit the CDC website: https://www.cdc.gov/coronavirus/ for the most recent guidelines on Coronavirus testing. Fact Sheet for Healthcare Providers: https://www.fda.gov/media/935673/download Fact Sheet for Patients: https://www.fda.gov/media/532645/download ASSESSMENT / PLAN 56-year-old female with a [...] is consistent with aspiration results from original [facility] evaluation which is likely account services representative of the culprit organism causing [...] will follow along closely. Please page the [facility]-ID service pager at [phone] with questions. Thank you for the consultation. Jose Guadalupe Nixon M.D. ED TAPE PRESS OPERATOR Associated attestation - Gucci Salvador M.D. - 12/31/2021 6:07 PM GUMMED TAPE PRESS OPERATOR DEMOGRAPHIC INFORMATION [facility] Number:[phone] Patient Name: Angie Mosquera Date: [...] prescriptions, and Oxycodone. Oxycodone filled here at [facility] pharmacy. Patient going home with an interscalene block OnQ pump. Transportation provided by her son. ED TAPE PRESS OPERATOR Fanny Sifuentes R.N. - 12/31/2021 11:00 PM [...] Nasal mucous membranes remain intact Outcome: Progressing ED TAPE PRESS OPERATOR Ezequiel Hernandez R.N. - 12/30/2021 10:27 PM [...] staff assistance to bathroom. Navin Hernandez R.N. ED TAPE PRESS OPERATOR documented in this encounter OR Notes Op Note - Cyrus Polk M.D. - 12/30/2021 2:50 PM CST STAFF: Cyrus Polk M.D. RESIDENT: Dario Carrera M.D. PRE-OPERATIVE DIAGNOSIS Left infected reverse arthroplasty. POST-OPERATIVE DIAGNOSIS Left infected reverse arthroplasty. A anesthesiologist assistant was necessary for one or more [...] Cyrus Polk M.D. CT CT Job ID: [id number] ED TAPE PRESS OPERATOR documented in this encounter Miscellaneous Notes Hospital [...] and pain is controlled on oral medications. ED TAPE PRESS OPERATOR documented in this encounter Plan of Treatment Scheduled Referrals Name Type Priority Associated Diagnoses Order [facility] Outpatient Referral Routine Direct Infection Of Ordered: Health Referral Left Shoulder In 01/01/20 22 Infectious And Parasitic Diseases Classified Elsewhere (HCC) documented as of this encounter Procedures Procedure Name Priority Date/Time Associated Comments Diagnosis PLACE PERIPHERALLY Routine 01/01/2022 12:11 Resul ts for this INSERTED CENTRAL PM GUMMED TAPE PRESS OPERATOR procedure a re in CATHETER (PICC) the results section. REMOTE OXIMETRY Routine 12/31/2021 5:23 MONITORING CONT. PM GUMMED TAPE PRESS OPERATOR REMOTE OXIMETRY Routine 12/31/2021 5:23 MONITORING CONT. PM GUMMED TAPE PRESS OPERATOR BACTERIA / CAMELIA Routine 12/31/2021 4:04 Result s for this CULTURE, BLOOD PM GUMMED TAPE PRESS OPERATOR procedure are in the results section. BACTERIA / CAMELIA Routine 12/31/2021 3:52 Result s for this CULTURE, BLOOD PM GUMMED TAPE PRESS OPERATOR procedure are in the results section. ADULT OXYGEN THERAPY Routine 12/31/2021 8:01 AM GUMMED TAPE PRESS OPERATOR CBC WITH Routine 12/31/2021 4:25 Results for this DIFFERENTIAL, B AM GUMMED TAPE PRESS OPERATOR procedure ar e in the results section. BASIC METABOLIC Routine 12/31/2021 4:25 Results f or this PANEL, S/P AM GUMMED TAPE PRESS OPERATOR procedure are i n the results section. ADULT OXYGEN THERAPY Routine 12/30/2021 8:01 PM GUMMED TAPE PRESS OPERATOR ADULT OXYGEN THERAPY Routine 12/30/2021 5:12 PM GUMMED TAPE PRESS OPERATOR ADULT OXYGEN THERAPY Routine 12/30/2021 5:12 PM GUMMED TAPE PRESS OPERATOR ADULT OXYGEN THERAPY Routine 12/30/2021 3:46 PM GUMMED TAPE PRESS OPERATOR ADULT OXYGEN THERAPY Routine 12/30/2021 3:46 PM GUMMED TAPE PRESS OPERATOR DX SHOULDER LEFT 1 RAD - Timed (for 12/30/2021 3:41 Re sults for this VIEW specific PM GUMMED TAPE PRESS OPERATOR procedure are i n dates/times) the results section. SURGICAL PATHOLOGY, Routine 12/30/2021 2:15 Shoulder Joint Res ults for this FROZEN LAB PM GUMMED TAPE PRESS OPERATOR Disorder Left procedure are in the results section. BACTERIA CULT, Routine 12/30/2021 2:11 Results fo r this AEROBE/ANAEROBE+SUSC PM GUMMED TAPE PRESS OPERATOR procedu re are in the results section. BACTERIA CULT, Routine 12/30/2021 2:05 Results fo r this AEROBE/ANAEROBE+SUSC PM GUMMED TAPE PRESS OPERATOR procedu re are in the results section. BACTERIA CULT, Routine 12/30/2021 2:04 Results fo r this AEROBE/ANAEROBE+SUSC PM GUMMED TAPE PRESS OPERATOR procedu re are in the results section. BACTERIA CULT, Routine 12/30/2021 2:03 Results fo r this AEROBE/ANAEROBE+SUSC PM GUMMED TAPE PRESS OPERATOR procedu re are in the results section. BACTERIA CULT, Routine 12/30/2021 2:03 Results fo r this AEROBE/ANAEROBE+SUSC PM GUMMED TAPE PRESS OPERATOR procedu re are in the results section. ARTHROPLASTY 12/30/2021 12:34 Shoulder Joint RESECTION SHOULDER PM GUMMED TAPE PRESS OPERATOR Disorder Left documented in this encounter Results Place peripherally inserted central catheter (PICC) (01/01/2022 12:11 PM GUMMED TAPE PRESS OPERATOR) Narrative MMODAL - 01/01/2022 12:11 PM GUMMED TAPE PRESS OPERATOR Soraida Dick R.N. ? 01/01/2022 12:13 PM [...] to release the adhesive from the skin. [email or web address] [email or web address] Dario Carrera M.D. PROCEDURE/MINOR SURGICAL ORD ERABLES Performing Organization Address City/State/ZIP Code Phon e Number MMODAL MMODAL NA Bacteria / Camelia Culture, Blood #2 (12/31/2021 4:04 PM GUMMED TAPE PRESS OPERATOR) [facility] Method Time Signature Bacteria/Valerie No growth 01/05/2022 DTL da Culture, after 5 5:02 PM GUMMED TAPE PRESS OPERATOR Blood days of incubation. Specimen (Source) Anatomical Collection Method Collection Time Re ceived Time Location / / Volume Laterality Blood (Blood, 12/31/2021 4:04 12/31/2021 4:51 Peripheral Draw) PM GUMMED TAPE PRESS OPERATOR PM GUMMED TAPE PRESS OPERATOR Comment: Specimen Source Site: Blood Narrative [facility] - 01/05/2022 5:02 PM GUMMED TAPE PRESS OPERATOR Received Bactec aerobic and Bactec anaer obic bottles Dario Carrera M.D. LAB MICROBIOLOGY - GENERAL O MARY Performing Organization Address [facility] Phon e Number [facility] - [address] Bacteria / Camelia Culture, Blood #1 (12/31/2021 3:52 PM GUMMED TAPE PRESS OPERATOR) [facility] Method Time Signature Bacteria/Valerie No growth 01/05/2022 DT da Culture, after 5 5:02 PM GUMMED TAPE PRESS OPERATOR Blood days of incubation. Specimen (Source) Anatomical Collection Method Collection Time Re ceived Time Location / / Volume Laterality Blood (Blood, 12/31/2021 3:52 12/31/2021 4:50 Peripheral Draw) PM GUMMED TAPE PRESS OPERATOR PM GUMMED TAPE PRESS OPERATOR Comment: Specimen Source Site: Blood Narrative [facility] - 01/05/2022 5:02 PM GUMMED TAPE PRESS OPERATOR Received Bactec aerobic and Bactec anaer obic bottles Dario Carrera M.D. LAB MICROBIOLOGY - GENERAL O MARY Performing Organization Address [facility] Phon e Number [facility] - [phone] [place] [address] (ABNORMAL) CBC with Differential, Blood (12/31/2021 4:25 AM GUMMED TAPE PRESS OPERATOR) [facility] Method Time Signature Hemoglobin 8.9 (L) 11.6 - 12/31/2021 DTL 15.0 g/dL 5:15 AM GUMMED TAPE PRESS OPERATOR Hematocrit 27.3 (L) 35.5 - 12/31/2021 DTL 44.9 % 5:15 AM GUMMED TAPE PRESS OPERATOR Erythrocytes 3.26 (L) 3.92 - 12/31/2021 DTL 5.13 5:15 AM GUMMED TAPE PRESS OPERATOR x10(12)/L MCV 83.7 78.2 - 12/31/2021 DTL 97.9 fL 5:15 AM GUMMED TAPE PRESS OPERATOR RBC Distrib Width 19.6 (H) 12.2 - 12/31/2021 DTL 16.1 % 5:15 AM GUMMED TAPE PRESS OPERATOR Platelet Count 274 157 - 371 12/31/2021 DTL x10(9)/L 5:15 AM GUMMED TAPE PRESS OPERATOR Leukocytes 6.6 3.4 - 9.6 12/31/2021 DTL x10(9)/L 5:15 AM GUMMED TAPE PRESS OPERATOR Neutrophils 4.91 1.56 - 12/31/2021 DTL 6.45 5:15 AM GUMMED TAPE PRESS OPERATOR x10(9)/L Lymphocytes 1.10 0.95 - 12/31/2021 DTL 3.07 5:15 AM GUMMED TAPE PRESS OPERATOR x10(9)/L Monocytes 0.61 0.26 - 12/31/2021 DTL 0.81 5:15 AM GUMMED TAPE PRESS OPERATOR x10(9)/L Eosinophils <0.03 0.03 - 12/31/2021 DTL 0.48 5:15 AM GUMMED TAPE PRESS OPERATOR x10(9)/L Basophils <0.03 0.01 - 12/31/2021 DTL 0.08 5:15 AM GUMMED TAPE PRESS OPERATOR x10(9)/L Specimen Anatomical Collection Method Collection Time Receive d Time (Source) Location / / Volume Laterality Blood (Blood, 12/31/2021 4:25 AM 12/31/19 5:04 Venous) GUMMED TAPE PRESS OPERATOR AM GUMMED TAPE PRESS OPERATOR Dario Carrera M.D. LAB BLOOD ADD-ON Performing Organization Address City/State/ZIP Code Phon e Number [facility] - [address] [place] [phone] [facility] [place] [place] [address] [facility] (ABNORMAL) Basic Metabolic Panel (12/31/2021 4:25 AM GUMMED TAPE PRESS OPERATOR) P athologist Signature Potassium, S 4.4 3.6 - 5.2 12/31/2021 DTL mmol/L 5:35 AM GUMMED TAPE PRESS OPERATOR Sodium, S 134 (L) 135 - 145 12/31/2021 DTL mmol/L 5:35 AM GUMMED TAPE PRESS OPERATOR Chloride, S 103 98 - 107 12/31/2021 DTL mmol/L 5:35 AM GUMMED TAPE PRESS OPERATOR Bicarbonate, S 22 22 - 29 12/31/2021 DTL mmol/L 5:35 AM GUMMED TAPE PRESS OPERATOR Anion Gap 9 7 - 15 12/31/2021 DTL 5:35 AM GUMMED TAPE PRESS OPERATOR BUN (Blood Urea 21 6 - 21 12/31/2021 DTL Nitrogen), S mg/dL 5:35 AM GUMMED TAPE PRESS OPERATOR Creatinine 0.74 0.59 - 12/31/2021 DTL 1.04 mg/dL 5:35 AM GUMMED TAPE PRESS OPERATOR eGFR-Non 90 >=60 12/31/2021 DTL Black/ mL/min/BSA 5:35 AM GUMMED TAPE PRESS OPERATOR Gabonese Comment: ----ADDITIONAL INFORMATION---- Estimated GFR calculated using the 2009 CKD_EPI creatinine equation. eGFR-Black/ >90 >=60 mL/min/BSA 2021 5:35 AM GUMMED TAPE PRESS OPERATOR DTL Comment: ----ADDITIONAL INFORMATION---- Estimated GFR calculated using the 2009 CKD_EPI creatinine equation. Calcium, Total, S 8.7 8.6 - 10.0 mg/dL 12/31/2021 5:35 AM GUMMED TAPE PRESS OPERATOR DTL Glucose, S 138 70 - 140 mg/dL 12/31/2021 5:35 AM GUMMED TAPE PRESS OPERATOR D TL Specimen Anatomical Collection Method Collection Time Receive d Time (Source) Location / / Volume Laterality Blood (Blood, 12/31/2021 4:25 AM 12/31/19 5:18 Venous) GUMMED TAPE PRESS OPERATOR AM GUMMED TAPE PRESS OPERATOR Dario Carrera M.D. LAB BLOOD ADD-ON Performing Organization Address City/State/[facility] Code Phon e Number [facility] - [address] [place], [place] [phone] [facility] [place] [address] [facility] [address] [facility] DX Shoulder Left 1 View (12/30/2021 3:41 PM GUMMED TAPE PRESS OPERATOR) Anatomical Region Laterality Modality Upper Extremity, Shoulder, Musculoskeletal RST LOS, Left Computed Radiography Musculoskeletal ARZ LOS, Muskuloskeletal FLA LOS Specimen (Source) Anatomical Collection Method Collection Time Re ceived Time Location / / Volume Laterality 12/30/2021 3:54 PM GUMMED TAPE PRESS OPERATOR Impressions 12/30/2021 3:59 PM GUMMED TAPE PRESS OPERATOR Postoperative changes of a left shoulder arthroplasty resection and placement of an antibiotic spacer. Negat lalo for postoperative purposes. Narrative 12/30/2021 3:59 PM GUMMED TAPE PRESS OPERATOR EXAM: ??DX SHOULDER LEFT 1 VIEW Procedure Note Timothy Resendiz M.D. - 12/30/2021Forma tting of this note might be different from the original. EXAM: DX SHOULDER LEFT 1 VIEW IMPRESSION: Postoperative changes of a left shoulder arthroplasty resection and placement of an antibiotic spacer. Negat lalo for postoperative purposes. Dario Carrera M.D. IMG DIAGNOSTIC IMAGING [facility] Surgical Pathology, Frozen Lab (12/30/2021 2:15 PM GUMMED TAPE PRESS OPERATOR) Component Value Ref Test Analysis Performed At [facility] Range Method Time Signature 01/01/2022 M[facility] 8:22 AM GUMMED TAPE PRESS OPERATOR Participated in Kelly Howard, 01/01/2022 [facility] the D.O.-Pathology 8:22 AM GUMMED TAPE PRESS OPERATOR Interpretation Resident Report Solomon Marcum M.D. 01/01/2022 [facility] electronically 8:22 AM GUMMED TAPE PRESS OPERATOR signed by I verify that I have examined all relevant slides/materials for the specimen(s) and rendered or confirmed the diagnosis. Frozen A. ??Synovium, left shoulder, excision: ??Synovial tissue 01/01/2022 M[facility] Intraoperative with 8:22 AM GUMMED TAPE PRESS OPERATOR Report acute inflammation (>5 neutrophils/high power field). Signed by Solomon Marcum M.D. 12/31/2021 8:17 AM Gross Description A. ??Received fresh labeled left shoulder is a 1.4 x 0.9 x 01/01/2022 M[facility] 0.4 cm aggregate of red and campbell fibrous tissue, which is 8:22 AM GUMMED TAPE PRESS OPERATOR soft. ??All submitted for frozen and permanent sections. Grossed by Nikki Gallardo. Block Summary A Left shoulder 01/01/2022 [facility] A1 Left shoulder-frozen 8:22 AM GUMMED TAPE PRESS OPERATOR Interpretation FINAL DIAGNOSIS 01/01/2022 M[facility] 8:22 AM GUMMED TAPE PRESS OPERATOR A. ??Synovium, left shoulder, excision: ??Synovial tissue with acute inflammation (>5 neutrophils/high power field). Specimen (Source) Anatomical Collection Method Collection Time Re ceived Time Location / / Volume Laterality Tissue (Shoulder, 12/30/2021 2:15 PM Left) GUMMED TAPE PRESS OPERATOR Narrative This result has an attachment that is no t available. Cyrus Polk M.D. LAB SURG PATH ORDERABLES Performing Organization Address City/State/ZIP Code Phon e Number [facility] - [address] [place], [place] [address] [facility] [place] [address] [facility] [address] Bacteria Cult, Aerobe / Anaerobe+Susc (12/30/2021 2:11 PM GUMMED TAPE PRESS OPERATOR) [facility] Method Time Signature Bacteria Cult, No growth 01/13/2022 DTL Aerobe/Anaerob after 14 4:02 PM GUMMED TAPE PRESS OPERATOR e+Susc days of incubation. Specimen Anatomical Collection Method Collection Time Receive d Time (Source) Location / / Volume Laterality Shoulder, Left 12/30/2021 2:11 PM 022 3:38 GUMMED TAPE PRESS OPERATOR PM GUMMED TAPE PRESS OPERATOR Comment: Specimen Source Site: Tissue #4 Narrative [facility] - 01/13/2022 4:02 PM GUMMED TAPE PRESS OPERATOR Bacterial Culture: Placed in Bactec aero bic and Bactec anaerobic bottles Cyrus Polk M.D. LAB MICROBIOLOGY - GENERAL O RDERABLES Performing Organization Address City/State/ZIP Code Phon e Number [facility] - [facility] [address] [place], [place] [phone] [facility] [place] [address] [facility] [address] (ABNORMAL) Bacteria Cult, Aerobe / Anaerobe+Susc (12/30/2021 2:05 PM GUMMED TAPE PRESS OPERATOR) Component Value Ref Test Analysis Performed At [facility] Range Method Time Signature Bacteria STAPHYLOCOCCUS EPIDERMIDIS 01/11/2022 DT L Cult, Growth after 4 days 7:55 AM GUMMED TAPE PRESS OPERATOR Aerobe/Anaero (A) be+Susc Comment: Semi-Urgent Result. Semi-Urgent This is a semi-urgent result [facility] - (ORTIZ) [facility] Specimen Anatomical Collection Method Collection Time Receive d Time (Source) Location / / Volume Laterality Synovial Fluid, 12/30/2021 2:05 PM 2021 3:17 Left Shoulder GUMMED TAPE PRESS OPERATOR PM GUMMED TAPE PRESS OPERATOR Comment: Specimen Source Site: Fluid Narrative [facility] - 01/11/2022 7:55 AM GUMMED TAPE PRESS OPERATOR Bacterial Culture: Placed in Bactec aero bic [...] - GENERAL O MARY Performing Organization Address City/[facility] Phon e Number [address] Bacteria Cult, Aerobe / Anaerobe+Susc (12/30/2021 2:04 PM GUMMED TAPE PRESS OPERATOR) [facility] Signature Bacteria Cult, No growth 01/13/2022 [facility] Aerobe/Anaerob after 14 4:02 PM GUMMED TAPE PRESS OPERATOR e+Susc days of incubation. Specimen Anatomical Collection Method Collection Time Receive d Time (Source) Location / / Volume Laterality Shoulder, Left 12/30/2021 2:04 PM 022 3:34 GUMMED TAPE PRESS OPERATOR PM GUMMED TAPE PRESS OPERATOR Comment: Specimen Source Site: Tissue #3 Narrative [facility] - 01/13/2022 4:02 PM GUMMED TAPE PRESS OPERATOR Bacterial Culture: Placed in Bactec aero bic and Bactec anaerobic bottles Cyrus Polk M.D. LAB MICROBIOLOGY - GENERAL O MARY Performing Organization Address City/[facility] Phon e Number [facility] - [address] [place] [address] Bacteria Cult, Aerobe / Anaerobe+Susc (12/30/2021 2:03 PM GUMMED TAPE PRESS OPERATOR) [employer] Method Time Signature Bacteria Cult, No growth 01/13/2022 DTL Aerobe/Anaerob after 14 4:02 PM GUMMED TAPE PRESS OPERATOR e+Susc days of incubation. Specimen Anatomical Collection Method Collection Time Receive d Time (Source) Location / / Volume Laterality Shoulder, Left 12/30/2021 2:03 PM 022 3:37 GUMMED TAPE PRESS OPERATOR PM GUMMED TAPE PRESS OPERATOR Comment: Specimen Source Site: Tissue #2 [facility] - 01/13/2022 4:02 PM GUMMED TAPE PRESS OPERATOR Bacterial Culture: Placed in Bactec aero bic and Bactec anaerobic bottles Cyrus Polk M.D. LAB MICROBIOLOGY - GENERAL O MARY Performing Organization Address City/[facility] Phon e Number [facility] - [address] [place], [place] [address] [place] [address] Bacteria Cult, Aerobe / Anaerobe+Susc (12/30/2021 2:03 PM GUMMED TAPE PRESS OPERATOR) [facility] Method Time Signature Bacteria Cult, No growth 01/13/2022 DTL Aerobe/Anaerob after 14 4:02 PM GUMMED TAPE PRESS OPERATOR e+Susc days of incubation. Specimen Anatomical Collection Method Collection Time Receive d Time (Source) Location / / Volume Laterality Shoulder, Left 12/30/2021 2:03 PM 022 3:31 GUMMED TAPE PRESS OPERATOR PM GUMMED TAPE PRESS OPERATOR Comment: Specimen Source Site: Tissue #1 [facility] - 01/13/2022 4:02 PM GUMMED TAPE PRESS OPERATOR Bacterial Culture: Placed in Bactec aero bic and Bactec anaerobic bottles Cyrus Polk M.D. LAB MICROBIOLOGY - GENERAL O MARY Performing Organization Address City/[facility] Phon e Number [facility] - [address] [place], [place] [address] [place], [place] [id number] [place] [address] documented in this encounter Visit Diagnoses Diagnosis [...] tablet 1,000 mg Given 01/01/2022 11:36 AM GUMMED TAPE PRESS OPERATOR 1,00 0 mg (TYLENOL) 1,000 mg, oral, Every 6 hours, First dose on Tue12/30/21 at 1800 Given 01/01/2022 6:28 AM GUMMED TAPE PRESS OPERATOR 1,000 mg Given 12/31/2021 11:51 PM GUMMED TAPE PRESS OPERATOR 1,000 mg albuterol nebulizer solution 2.5 mg Given 12/31/2021 4:44 PM GUMMED TAPE PRESS OPERATOR 2.5 mg 2.5 mg, nebulization, Every 6 hours PRN, wheezing, Starting on Tue12/30/21 at 1711, Albuterol nebs were interchanged for albuterol/levalbuterol MDI (same frequency) atorvastatin tablet 80 mg (LIPITOR) Given 12/31/2021 8:57 PM GUMMED TAPE PRESS OPERATOR 80 mg 80 mg, oral, Daily at bedtime, First dose on Tue12/30/21 at 2100 Given 12/30/2021 9:55 PM GUMMED TAPE PRESS OPERATOR 80 mg benzonatate capsule 100 mg (TESSALON PER LES) Given 01/01/2022 3:10 AM GUMMED TAPE PRESS OPERATOR 100 mg 100 mg, oral, 3 times daily PRN, cough, Starting on Tue12/31/21 at 1702, Swallow whole. Do NOT crush, chew or open capsule. Given 12/31/2021 5:39 PM GUMMED TAPE PRESS OPERATOR 100 mg bupivacaine PF 0.2 % 550 mL in NaCl New Bag 01/01/2022 3:15 PM GUMMED TAPE PRESS OPERATOR 6 mL/hr 6 mL/hr 0.9% On-Q pain pump (CB004) 6 mL/hr, nerve catheter, Continuous, Starting on Tue01/01/22 at 1500, PACU & Post-Op, Location: Nerve Catheter Location, Nerve Catheter Location: Interscalene, Device: On-Q Pump bupivacaine PF 0.2 % in Rate/Dose Verify 01/01/2022 1:00 AM GUMMED TAPE PRESS OPERATOR 6 mL/ hr 6 mL/hr NaCl 0.9% 341 mL infusion (MARCAINE) 6 mL/hr, nerve catheter, Continuous, Starting on Tue12/30/21 at 1600, PACU & Post-Op, Nerve Catheter Location: Interscalene, Device: Hospital Infusion Pump Rate/Dose Verify 12/31/2021 12:11 AM GUMMED TAPE PRESS OPERATOR 6 mL/hr 6 mL/hr New Bag 12/30/2021 3:49 PM GUMMED TAPE PRESS OPERATOR 6 mL/hr 6 mL/hr buPROPion XL 24 hr tablet 150 mg (WELLBUTRIN Given 02/2022 8:35 AM GUMMED TAPE PRESS OPERATOR 150 mg XL) 150 mg, oral, Every morning, First dose on Tue12/31/21 at 0900, Swallow whole. Do NOT crush, chew, or split tablet. Given 12/31/2021 8:16 AM GUMMED TAPE PRESS OPERATOR 150 mg calcium carbonate chewable tablet Given 12/31/2021 11: 46 PM GUMMED TAPE PRESS OPERATOR 400 mg of calcium 400 mg of calcium (TUMS) 400 mg of calcium, oral, Every 2 hour PRN, indigestion, Starting on Tue12/30/21 at 1711, Doses listed are in mg of elemental calcium. Take with food. 500 mg calcium carbonate contains 200 mg of elemental calcium. Given 12/31/2021 9:15 PM GUMMED TAPE PRESS OPERATOR 400 mg of calcium carboxymethylcellulose 0.5 % ophthalmic Given 01/01/2022 1:15 AM GUMMED TAPE PRESS OPERATOR 2 drops solution 2 drop (REFRESH PLUS) 2 drop, both eyes, 4 times daily PRN, dry eyes, Starting on Tue12/30/21 at 1711 Given 12/31/2021 12:31 PM GUMMED TAPE PRESS OPERATOR 2 drops Given 12/31/2021 12:23 AM GUMMED TAPE PRESS OPERATOR 2 drops cefTRIAXone in dextrose (iso-osm) IVPB New Bag 01/01/2022 2:38 PM GUMMED TAPE PRESS OPERATOR 2 g 200 mL/hr 2 g (ROCEPHIN) 2 g, intravenous, at 200 mL/hr, Administer over 15 Minutes, Daily before lunch, First dose on Tue01/01/22 at 1345, Drug Monitoring Program: Pharmacist to adjust medication dosing based on indication and drug clearance factors., Indications: Bone and/or joint infection cetirizine tablet 10 mg (ZyrTEC) Given 01/01/2022 8:35 AM GUMMED TAPE PRESS OPERATOR 10 mg 10 mg, oral, 2 times daily, First dose on Tue12/30/21 at 2100, Drug Monitoring Program: Pharmacist to adjust medication dosing based on indication and drug clearance factors. Given 12/31/2021 8:57 PM GUMMED TAPE PRESS OPERATOR 10 mg Given 12/31/2021 8:16 AM GUMMED TAPE PRESS OPERATOR 10 mg cholecalciferol (vitamin D3) tablet 25 m cg Given 01/01/2022 8:35 AM GUMMED TAPE PRESS OPERATOR 25 mcg 25 mcg, oral, Daily, First dose on Tue12/31/21 at 0900, cholecalciferol (vitamin D3) orderable was interchanged for cholecalciferol (vitamin D3) tablet/capsule Given 12/31/2021 8:16 AM GUMMED TAPE PRESS OPERATOR 25 mcg D5W infusion 10-250 mL/hr, intravenous, [...] 5 mg (VALIUM) Given 12/31/2021 12:31 PM GUMMED TAPE PRESS OPERATOR 5 mg 5 mg, oral, 4 times daily PRN, muscle spasms, Starting on Tue12/30/21 at 2243 Given 12/31/2021 1:59 AM GUMMED TAPE PRESS OPERATOR 5 mg diphenhydrAMINE capsule 25 mg (BENADRYL) 25 mg, oral, Daily PRN, itching, Starting on Tue 2 at 0854 diphenhydrAMINE capsule 75 mg (BENADRYL) Given 01/01/2022 8:49 AM GUMMED TAPE PRESS OPERATOR 75 mg 75 mg, oral, Bedtime PRN, sleep, Starting on Tue12/30/21 at 1715 FLUoxetine capsule 80 mg (PROzac) Given 01/01/2022 8:34 AM GUMMED TAPE PRESS OPERATOR 80 mg 80 mg, oral, Daily, First dose on Tue12/31/21 at 0900, FLUoxetine orderable was interchanged for FLUoxetine tablet/capsule Given 12/31/2021 8:16 AM GUMMED TAPE PRESS OPERATOR 80 mg fluticasone furoate 100 mcg/actuation Given 01/01/2022 8:[address] 2 puffs inhaler 2 puff (ARNUITY ELLIPTA) 2 puff, inhalation, 2 times daily, First dose on Tue12/30/21 at 2100, fluticasone furoate 100 mcg was interchanged for fluticasone MDI 110 mcg Given 12/31/2021 9:04 PM GUMMED TAPE PRESS OPERATOR 2 puffs Given 12/31/2021 8:17 AM GUMMED TAPE PRESS OPERATOR 2 puffs gentamicin powder (for bone Given 12/30/2021 2:40 PM GUMMED TAPE PRESS OPERATOR 4 vials Left Shoulder cement) As needed, Starting on Tue12/30/21 at 1440, Intra-Op heparin PF flush syringe 50-150 Units 50-150 Units, intravenous, Once as neede d, line care, 50 units (5 mL) to each lumen of non-valved catheters only, Starting on Tue01/01/22 a t 0817, For 1 dose HYDROmorphone (PF) injection 0.4 mg Given 01/01/2022 4:56 AM GUMMED TAPE PRESS OPERATOR 0.4 mg (DILAUDID) 0.4 mg, intravenous, Every 2 hour PRN, severe pain or score 7-10 of 10, Starting on Tue12/30/21 at 1711, For 5 doses, May administer if pain is greater than 7 after scheduled and PRN regimen exhausted. If pain remains greater than 7, notify primary service. Given 12/31/2021 11:35 AM GUMMED TAPE PRESS OPERATOR 0.4 mg Given 12/31/2021 4:14 AM GUMMED TAPE PRESS OPERATOR 0.4 mg ipratropium-albuteroL 0.5-2.5 mg/3 mL nebulizer Given 01/01/2022 3:15 AM GUMMED TAPE PRESS OPERATOR 3 mL solution 3 mL (DUONEB) 3 mL, nebulization, 4 times daily PRN, shortness of breath, wheezing, Starting on Tue12/30/21 at 1711 lactated ringers Rate/Dose Change 01/01/2022 1:00 AM GUMMED TAPE PRESS OPERATOR 20 mL/hr 20 mL/hr 75 mL/hr, intravenous, Continuous, Starting on Tue12/30/21 at 1715, Until patient has 500cc po intake New Bag 12/31/2021 11:46 PM GUMMED TAPE PRESS OPERATOR 75 mL/hr 75 mL/hr Rate/Dose Change 12/31/2021 3:55 AM GUMMED TAPE PRESS OPERATOR 20 mL/hr 20 mL/hr lactated ringers Continued from OR 12/30/2021 4:00 PM GUMMED TAPE PRESS OPERATOR 75 mL/hr 75 mL/hr 75 mL/hr, intravenous, Continuous, Starting on Tue12/30/21 at 1600, PACU & Post-Op lamoTRIgine tablet 200 mg (LaMICtaL) Given 01/01/2022 8:34 AM GUMMED TAPE PRESS OPERATOR 200 mg 200 mg, oral, 2 times daily, First dose on Tue12/30/21 at 2100 Given 12/31/2021 8:56 PM GUMMED TAPE PRESS OPERATOR 200 mg Given 12/31/2021 8:16 AM GUMMED TAPE PRESS OPERATOR 200 mg methylene blue 0.5 % (5 mg/mL) Given 12/30/2021 2:39 PM GUMMED TAPE PRESS OPERATOR 2 mL Left Shoulder injection As needed, [...] 10 mg (ROXICODONE) Given 01/01/2022 2:38 PM GUMMED TAPE PRESS OPERATOR 10 mg 10 mg, oral, Every 3 hours PRN, severe pain or score 7-10 of 10, Starting on Tue12/31/21 at 1745 Given 01/01/2022 11:35 AM GUMMED TAPE PRESS OPERATOR 10 mg Given 01/01/2022 7:07 AM GUMMED TAPE PRESS OPERATOR 10 mg oxyCODONE IR tablet 5 mg (ROXICODONE) 5 mg, oral, Every 3 hours PRN, moderate pain or score 4-6 of 10, Starting on Tue12/31/21 at 1745, If patient is >75 consider changing to 2.5-5mg scale pantoprazole DR tablet 40 mg (PROTONIX) Given 01/01/2022 3:46 PM GUMMED TAPE PRESS OPERATOR 40 mg 40 mg, oral, 2 times daily before breakfast and dinner, First dose on Tue12/31/21 at 0700, pantoprazole 40 mg oral twice daily was interchanged for esomeprazole 20 or 40 mg oral twice daily Swallow whole. Do NOT crush, chew, or split tablet. Given 01/01/2022 6:29 AM GUMMED TAPE PRESS OPERATOR 40 mg Given 12/31/2021 4:47 PM GUMMED TAPE PRESS OPERATOR 40 mg pregabalin capsule 600 mg (LYRICA) Given 01/01/2022 8:34 AM GUMMED TAPE PRESS OPERATOR 600 mg 600 mg, oral, 2 times daily, First dose on Tue12/30/21 at 2100 Given 12/31/2021 8:56 PM GUMMED TAPE PRESS OPERATOR 600 mg Given 12/31/2021 8:15 AM GUMMED TAPE PRESS OPERATOR 600 mg QUEtiapine tablet 50 mg (SEROquel) Given 12/31/2021 8:57 PM GUMMED TAPE PRESS OPERATOR 50 mg 50 mg, oral, Daily at bedtime, First dose on Tue12/30/21 at 2100 Given 12/30/2021 9:55 PM GUMMED TAPE PRESS OPERATOR 50 mg sennosides-docusate sodium 8.6-50 mg per Given 01/01/2022 8:35 A M GUMMED TAPE PRESS OPERATOR 1 tablet tablet 1 tablet (SENOKOT-S) 1 tablet, oral, 2 times daily, First dose on Tue12/30/21 at 2100, Do not give if patient has diarrhea. Given 12/31/2021 8:57 PM GUMMED TAPE PRESS OPERATOR 1 tablet Given 12/31/2021 8:16 AM GUMMED TAPE PRESS OPERATOR 1 tablet sodium chloride 0.9 % injection [...] injection 3 mL Given 12/31/2021 8:18 AM GUMMED TAPE PRESS OPERATOR 3 mL 3 mL, intravenous, Every 12 hours scheduled, First dose on Tue12/30/21 at 2100, PACU & Post-Op, Peripheral Intravenous Catheter and Rapid Infusion Catheter, when no infusion to maintain patency Given 12/30/2021 9:53 PM GUMMED TAPE PRESS OPERATOR 3 mL vancomycin powder Given 12/30/2021 2:40 PM GUMMED TAPE PRESS OPERATOR 4 g Left Shoulder As needed, Starting on Tue12/30/21 at 1440, Intra-Op zonisamide capsule 300 mg (ZONEGRAN) Given 01/01/2022 8:35 AM GUMMED TAPE PRESS OPERATOR 300 mg 300 mg, oral, 2 times daily, First dose on Tue12/30/21 at 2100, Swallow whole. Do NOT crush, chew or open capsule. Given 12/31/2021 8:57 PM GUMMED TAPE PRESS OPERATOR 300 mg Given 12/31/2021 8:16 AM GUMMED TAPE PRESS OPERATOR 300 mg documented in this encounter Active and Recently Administered Medications Times are shown in GUMMED TAPE PRESS OPERATOR. Scheduled Medication Order 12/30/2021 12/31/2021 01/01/2022 acetaminophen tablet 1,000 mg (TYLENOL) (COMPLETED) 12 (Given - Provider: Manda Barnett RBetsy) 1,000 [...] R.N.)2232 (New Bag - Provider: Fanny Sifuentes RBrittonNBritton) 0627 (New Bag - Provider: Viktoriya dorado [...] 1419 (Given - Provider: Emre Rodriguez APRN, [employer] CONSULTANT) 2,000 mg (rounded from 1,747.5 mg = [...] infectio n cetirizine tablet 10 mg (ZyrTEC) 0073 (Given - Provide r: Ezequiel Hernandez R.N.) 0816 (Given - Provider: Maci Gonzalez R.N.)2056 (Given - Provider: Sharifa KeenNBritton) 0835 (Given - Provider: Corrie fall RBrittonNBritton) [...] split tablet. pregabalin capsule 600 mg (LYRICA) 5 (Given - Provi marquis: Ezequiel Hernandez RBetsy) 0815 (Given - Provider: Maci Gonzalez RBrittonNBritton)2055 (Given - Provider: Fanny Sifuentes R.N.) 0834 (Given - Provider: Corrie fall RBrittonNBritton) 600 mg, oral, 2 times daily, First dose on Tue12/30/21 at 2100 QUEtiapine tablet 50 mg (SEROquel) 2155 (Given - Provi marquis: Ezequiel Hernandez R.N.) [...] 1446 (Given - Provider: Emre Rodriguez APRN, [employer] CONSULTANT)1550 (Anesthesia Volume Adjustment - Provider: Emre Rodriguez [...] (ZONEGRAN) 2155 (Given - Pro vider: Ezequiel Hernandez, R.N.) 0816 (Given - Provider: Maci Gonzalez R.N.)2057 (Given - Provider: Fanny Sifuentes R.N.) 0835 (Given - Provider: Corrie fall R.NBritton) 300 mg, oral, 2 times daily, [...] (Continued from OR - Pr ovider: Ezequiel Hernandez, R.N.)1841 (New Bag - Provider: Ezequiel Hernandez [...] at 1711 benzonatate capsule 100 mg (TESSALON AYDIN) 1739 (Given - Provider: Fanny Sifuentes RBrittonNBritton) [...] (TUMS) 2114 (Given - Provider: Fanny Sifuentes RBrittonNBritton)2346 (Given - Provider: Leticia Pérez, R.N.) 400 mg of calcium, oral, Every 2 hour AR N, indigestion, Starting on Tue12/30/21 at 1711, [...] mg (BENADRYL) 0849 (Given - Provider: Corrie P Everton, R.N. - Comment: for itching) 75 mg, [...] Provider: Conchita Carmen RBrittonN.)1607 (Given - Provider: Sharifa DarlingN.)1617 (Given - Provider: Conchita Carmen R.N.) 0.2 [...] 4 mg (ZOFRAN) 0816 (Given - Provider: Maic Gonzalez R.N.) 0116 (Given - Provider: Viktoriya [...] IR tablet 5 mg (ROXICODONE)(Linked Group 1) 173 (See Alternative - Provider: Fanny Sifuentes R.N.)2053 (See Alternative - Provider: Fanny Sifuentes R.N.)2350 (See Alternative - Provider: Rafal Waller, M.S.N., [...] over 3 days 1 patch (TRANSDERM S SCRIP CLERK) (CANCELED) 1202 (Medication Applied - Provider: Manda [...] documented as of this encounter Care Teams Preparation Supervisor Canning Relationship Specialty Start Date End Date Elsewhere, Pcp PCP - General Family Medicine 12/25/21 documented as of this encounter
--- OUTSIDE RECORDS SUMMARY | 2022-09-14 12:03 | XMS_ITS | Encounter Summary ---
:1965 Author Organization [facility] Address [address] [place] [address] Care Team Providers Name Role Phone Elsewhere, Pcp Primary Care Provider Unavailable Reason for Visit Reason Comments Pre-op Exam Outpatient (Routine) - Closed Specialty Diagnoses / Procedures Referred By Contact Refer red To Contact Orthopedic Surgery Diagnoses Preoperative Exam Painful Total Joint Arthroplasty Initial (HCC) Alfredo Herrera Rochest [facility]CBritton [address] [place] [phone] Referral ID Status Reason Start Date Expiration Date Visits Requ ested Visits Authorized [id number] Closed 10/13/2021 10/13/2022 1 1 Encounter Details Date Type Department Care Team Description 12/29/2021 Office Visit Department of Cyrus Polk Shoulde r Left (Primary Dx); Orthopedic Surgery in [place] Preoperative Exam; [place], [place] [address] [place] [address] Painful Total Joint Arthroplasty Initial ([facility]) [address] [place] [phone] Social History Tobacco Use Types Packs/Day Years [...] you attend episcopalian or Patient refused 2021 voodoo services? Do [...] may involve the use of a medical esthetician made by a company withsanam I or one of my partners have collaborated to design, develop, or improve orthopedic implants, instruments, or products. Both the [facility] and the individual surgeons involved receive royalty payments from the use of those specific devices at other institutions, but no royalties or any other payments are paid for the use of those devices with any [facility] patient. The clinical rationale for the use of those devices as well as the availability and applicability of alternative devices was reviewed. He understands that the final decision for the use of a specific medical esthetician often is made at the time of surgery. All of his questions were answered; he understands and agrees with my approach to device selection and wants to proceed. 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
--- OUTSIDE RECORDS SUMMARY | 2022-09-14 12:03 | XMS_ITS | Encounter Summary ---
:1965 Author Organization [facility] Address [address] [place] [address] Care Team Providers Name Role Phone Unavailable Primary Care Provider Unavailable Reason for Referral Outpatient (Routine) - Closed Specialty Diagnoses / Procedures Referred By Contact Refer red To Contact Anesthesiology Diagnoses Preoperative Exam Painful Total Joint Arthroplasty Initial (HCC) Alfredo Herrera [facility] Akbar-Araceli [address] [place] [phone] Referral ID Status Reason Start Date Expiration Date Visits Requ ested Visits Authorized [id number] Closed 10/13/2021 10/13/2022 1 1 R DOUBLER Outpatient (Routine) - Closed Specialty Diagnoses / Procedures Referred By Contact Refer red To Contact Orthopedic Surgery Diagnoses Preoperative Exam Painful Total Joint Arthroplasty Initial ([facility]) Alfredo Herrera Rochest [facility] Lebron.Fernando-CBritton 200 [place] [address] Referral ID Status Reason Start Date Expiration Date Visits Requ ested Visits Authorized [id number] Closed 10/13/2021 10/13/2022 1 1 R DOUBLER Reason for Visit Reason Comments pre op orders L verena Encounter Details Date Type Department Care Team Description 10/12/2021 Clinical Communication Department of Jam pre op orders ([facility]opedic [facility] [place] Alex) in [place] [address] [address] [place], [place] 200 [facility] [address] [place], [place] [phone] (Work) [phone] Social History Tobacco Use Types Packs/Day Years [...] you attend zoroastrianism or Patient refused 2021 hoahaoism services? Do [...] and see me Surgery date: December 30 R DOUBLER documented in this encounter Plan of Treatment Scheduled Referrals Name Type Priority Associated Diagnoses Order S [facility] Orthopedic Surgery Outpatient Referral Routine Preoperat lalo Exam Expected: Pre Op (clinic) Painful Total Joint 12/29 Arthroplasty Initial (Approx imate), (HCC) Expires: 10/12/2024 Preoperative Outpatient Referral Routine Preoperative Exam Expected: Evaluation NESHA Painful Total Joint 2021 consult (clinic) Arthroplasty Initial (Ap proximate), (HCC) Expires: 10/12/2024 documented as of this encounter Results (ABNORMAL) Basic Metabolic Panel (12/29/2021 11:34 AM UPPER DOUBLER) P athologist Signature Potassium, S 4.7 3.6 - 5.2 12/29/2021 DTL mmol/L 12:38 PM UPPER DOUBLER Sodium, S 143 135 - 145 12/29/2021 DTL mmol/L 12:38 PM UPPER DOUBLER Chloride, S 108 (H) 98 - 107 12/29/2021 DTL mmol/L 12:38 PM UPPER DOUBLER Bicarbonate, S 24 22 - 29 12/29/2021 DTL mmol/L 12:38 PM UPPER DOUBLER Anion Gap 11 7 - 15 12/29/2021 DTL 12:38 PM UPPER DOUBLER BUN (Blood Urea 15 6 - 21 12/29/2021 DTL Nitrogen), S mg/dL 12:38 PM UPPER DOUBLER Creatinine 0.83 0.59 - 12/29/2021 DTL 1.04 mg/dL 12:38 PM UPPER DOUBLER eGFR-Non 78 >=60 12/29/2021 DTL Black/ mL/min/BSA 12:38 PM UPPER DOUBLER English Comment: ----ADDITIONAL INFORMATION---- Estimated GFR calculated using the 2009 CKD_EPI creatinine equation. eGFR-Black/ 90 >=60 mL/min/BSA 2021 12:38 PM UPPER DOUBLER DTL Comment: ----ADDITIONAL INFORMATION---- Estimated GFR calculated using the 2009 CKD_EPI creatinine equation. Calcium, Total, S 9.1 8.6 - 10.0 mg/dL 12/29/2021 12:3 8 PM UPPER DOUBLER DTL Glucose, S 90 70 - 140 mg/dL 12/29/2021 12:38 PM UPPER DOUBLER DTL Specimen Anatomical Collection Method Collection Time Receive d Time (Source) Location / / Volume Laterality Blood (Blood, 12/29/2021 11:34 12/29/2021 Venous) AM UPPER DOUBLER 12:13 PM UPPER DOUBLER Alfredo Kamara LAB BLOOD ADD-ON Performing Organization Address City/[facility] Phon e Number [facility] - [address] Type and Screen (with reflex Antibody ID) (12/29/2021 11:34 AM UPPER DOUBLER) [facility] Method Time Signature ABORh A Neg Not applicable 12/29/2021 ETRM 12:59 PM UPPER DOUBLER Antibody CANCELED 12/29/2021 ETRM Screen 12:59 PM UPPER DOUBLER Comment: Result canceled by the ancillar y. Type & Screen Expiration 02/26/2022 23:59 12/29/19 22 12:59 PM UPPER DOUBLER ETRM Testing Location Ara DEFAULT 12/29/2021 11:58 AM UPPER DOUBLER ETRM Specimen Anatomical Collection Method Collection Time Receive d Time (Source) Location / / Volume Laterality Blood (Blood, 12/29/2021 11:34 12/29/2021 Venous) AM UPPER DOUBLER 11:58 AM UPPER DOUBLER Alfredo SchmidtCBritton LAB BLOOD BANK TEST ORDERABL ES Performing Organization Address City/[facility] Phon e Number [facility] - 200 [place] [phone] 05 [facility] ETRM [address] (ABNORMAL) CBC with Differential, Blood (12/29/2021 11:34 AM UPPER DOUBLER) [facility] Method Time Signature Hemoglobin 11.2 (L) 11.6 - 12/29/2021 DTL 15.0 g/dL 12:02 PM UPPER DOUBLER Hematocrit 34.1 (L) 35.5 - 12/29/2021 DTL 44.9 % 12:02 PM UPPER DOUBLER Erythrocytes 4.04 3.92 - 12/29/2021 DTL 5.13 12:02 PM UPPER DOUBLER x10(12)/L MCV 84.4 78.2 - 12/29/2021 DTL 97.9 fL 12:02 PM UPPER DOUBLER RBC Distrib Width 20.2 (H) 12.2 - 12/29/2021 DTL 16.1 % 12:02 PM UPPER DOUBLER Platelet Count 324 157 - 371 12/29/2021 DTL x10(9)/L 12:02 PM UPPER DOUBLER Leukocytes 5.1 3.4 - 9.6 12/29/2021 DTL x10(9)/L 12:02 PM UPPER DOUBLER Neutrophils 3.08 1.56 - 12/29/2021 DTL 6.45 12:02 PM UPPER DOUBLER x10(9)/L Lymphocytes 1.39 0.95 - 12/29/2021 DTL 3.07 12:02 PM UPPER DOUBLER x10(9)/L Monocytes 0.43 0.26 - 12/29/2021 DTL 0.81 12:02 PM UPPER DOUBLER x10(9)/L Eosinophils 0.17 0.03 - 12/29/2021 DTL 0.48 12:02 PM UPPER DOUBLER x10(9)/L Basophils 0.05 0.01 - 12/29/2021 DTL 0.08 12:02 PM UPPER DOUBLER x10(9)/L Specimen Anatomical Collection Method Collection Time Receive d Time (Source) Location / / Volume Laterality Blood (Blood, 12/29/2021 11:34 12/29/2021 Venous) AM UPPER DOUBLER 11:54 AM UPPER DOUBLER Alfredo Kamara LAB BLOOD ADD-ON Performing Organization Address City/State/ZIP Code Phon e Number [facility] - [address] [place], [place] [address] [facility] [place] [address] [facility] [address] SARS Coronavirus 2, Molecular Detection, PCR, Varies Asymptomatic (12/29/2021 11:11 AM UPPER DOUBLER) [facility] Method Time Signature COVID-19, Swab, 12/29/2021 DTL PCR, Source Nasopharynx 4:19 PM UPPER DOUBLER COVID-19, Undetected Undetected 12/29/2021 DTL PCR, Result 4:19 PM UPPER DOUBLER Comment: SARS-CoV-2 RNA absent. This result does not rule out COVID-19 in the patient, as the sensitivity of the test depends o n the timing of the specimen collection and quality of the specimen. Result should be correlated with patient's history and clinical presentat ion. ----ADDITIONAL INFORMATION---- This RT-PCR test using the [employer] SARS-Co V-2 Assay ( [employer]) performed on the [employer] Two Module System has received Emergency Use Authorization (EUA) by the U.S. Food and Drug Administration, and is modified from the angiography nurse's instructions with a bridging study. Performance characteristics were verifie d by [facility] in a manner consistent with CLIA requirements. Visit the CDC website: https://www.cdc.g ov/coronavirus/ for the most recent guidelines on [facility] virus testing. Fact Sheet for Healthcare Providers: https://www.fda.gov/media/516945/downloa d Fact Sheet for Patients: https://www.fda.gov/media/575676/downloa d Specimen Anatomical Collection Method Collection Time Receive d Time (Source) Location / / Volume Laterality Varies 12/29/2021 11:11 12/29/2021 (Nasopharynx) AM UPPER DOUBLER 12:03 PM UPPER DOUBLER Alfredo Kamara LAB MICROBIOLOGY - GENERAL O RDERABLES Performing Organization Address City/State/ZIP Code Phon e Number [facility] - [address] [place], [place] [address] [facility] [place] [address] [facility] [address] DX Shoulder Left 2+ Views (12/29/2021 10:30 AM UPPER DOUBLER) Anatomical Region Laterality Modality Upper Extremity, Shoulder, Musculoskeletal RST LOS, Left Digital Radiography Musculoskeletal ARZ LOS, Muskuloskeletal FLA LOS Specimen (Source) Anatomical Collection Method Collection Time Re ceived Time Location / / Volume Laterality 12/29/2021 10:53 AM UPPER DOUBLER Impressions 12/29/2021 10:57 AM UPPER DOUBLER Demineralization. Left shoulder arthroplasty revision to a reverse TSA. Developing lucency about the glenoi d component screws when compared back to 11/13/20, compatible with loosening. Pre sumed distal clavicle resection. Incompletely imaged instrumented spinal fusion from the upper cervical spine to the upper thoracic spine. Spinal cord st imulator. At least one old healed left posterior rib fracture. Narrative 12/29/2021 10:57 AM UPPER DOUBLER EXAM: ??DX SHOULDER LEFT 2+ VIEWS Procedure [...]
--- OUTSIDE RECORDS SUMMARY | 2022-09-14 12:03 | XMS_ITS | Encounter Summary ---
:[address] [facility] Address [address] [place] [address] Care Team Providers Name Role Phone Unavailable Primary Care Provider Unavailable Encounter Details Date Type Department Care Team Description 10/13/2021 Clinical Communication Preoperative [facility] in [place], [place] [address] [facility] [address] [place] [phone] Social History Tobacco Use Types Packs/Day Years [...] you attend bahai or Patient refused 2021 voodoo services? Do [...] Umu Gan [facility] - 10/13/2021 11:09 AM INSTRUCTIONAL TECHNOLOGY FACILITATOR Surgical Risk Score: 3 Risk Identifiers: 4+ ??? TIA ??? PFO ??? Hx of Arterial Thrombosis ??? Asthma RUCTIONAL TECHNOLOGY FACILITATOR documented in this encounter Plan of Treatment Not on filedocumented as of this encounter Visit Diagnoses Not on filedocumented in this encounter Additional Health Concerns Assessment Noted Time PHQ-9 Depression Total Score: 16 02/11/2021 12:00 AM C DT documented as of this encounter
--- OUTSIDE RECORDS SUMMARY | 2022-09-14 12:03 | XMS_ITS | Encounter Summary ---
:1965 Author Organization [facility] Address [address] [place] [address] Care Team Providers Name Role Phone Unavailable Primary Care Provider Unavailable Reason for Visit Reason Comments Michel Encounter Details Date Type Department Care Team Description 11/25/2021 Clinical Communication Department of Chani Benjamin Neurologic Surgery in [place], [place], [place] Ph.D. [address] [facility] 200 [place] [phone] Social History Tobacco Use Types Packs/Day Years [...] you attend shinto or Patient refused 2021 rastafari services? Do [...] for your help. [facility] Neurosurgery Appointment Office [phone] Please respond to the RST [facility] SCHEDULING Pool Thank You TECHNICIAN documented in this encounter Plan of Treatment Not on filedocumented as of this encounter Visit Diagnoses Not on filedocumented in this encounter Additional Health Concerns Assessment Noted Time PHQ-9 Depression Total Score: 16 02/11/2021 12:00 AM C DT documented as of this encounter
--- OUTSIDE RECORDS SUMMARY | 2022-09-14 12:03 | XMS_ITS | Encounter Summary ---
:1965 Author Organization [facility] Address [address] [place] [address] Care Team Providers Name Role Phone Elsewhere, Pcp Primary Care Provider Unavailable Encounter Details Date Type Department Care Team Description 12/30/2021 Anesthesia Event RST SEBAS MORAN OR Clifford Young M.D. [address] [place] [address] [phone] [address] [facility] Collin Fernández M.D. [address] [place] [phone] [place] [phone] Anesthesia Record Procedure Summary [...] h andoff to the receiving staff during [facility] ch we 1. Identified the patient 2. [...] Ayakalashell Andreyscout howard T, (created via procedure TUBE WASHER, STOVE INSTALLER TUBE WASHER, CRN A documentation); Mask Ventilation: Easy mask; [...] Procedure Summary Date: 12/30/21 Room / Location: [address] / [facility] in [place], [place] Anesthesia Start: 1250 Anesthesia Stop: 1550 [...] Post Op nausea/vomiting: none Hydration status: euvolemic RD KEEPER Anesthesia Procedure Notes - Emre Rodriguez APRN, CRNA - 12/30/2021 2:29 PM RECORD KEEPER Associated Order(s): Airway Airway Date/Time: 12/30/2021 1:02 [...] successful Airway event: no complications ATTESTATION STATEMENT RD KEEPER Anesthesia Preprocedure Evaluation - Clifford Young M.D. - 12/30/2021 1:23 PM CST Preprocedure Anesthesia & H&P Assessment Procedure Summary Anesthesia Start Date/Time: 12/30/21 1250 Procedure: ARTHROPLASTY RESECTION SHOULDER. 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 Location: [address] / [facility] in [place], [place] Providers: Cyrus Polk M.D. Pertinent components [...] with patient /legal guardian or through an asl interpreter. Risks/Benefits/Alternatives of Blood transfusion discussed with patient / legal guardian, including an opportunity to ask questions and/or decline some or all transfusion therapies. The patient / legalguardian consented to the use of all blood products, as deemed medically necessary Approval to Proceed: approved for anesthesia RD KEEPER Anesthesia Procedure Notes - Clifford Khanna M.D. - 12/30/2021 12:56 PM RECORD KEEPER Associated Order(s): Regional Block Regional Block Date/Time: [...] successful procedure Other complications: none ATTESTATION STATEMENT RD KEEPER documented in this encounter Plan of Treatment Not on filedocumented as of this encounter Procedures Procedure Name Priority Date/Time Associated Comments Diagnosis LDA ANE ENDOTRACHEAL Routine 12/30/2021 1:02 PM R esults for this AIRWAY RECORD KEEPER procedure are i n the results section. MC ANE NERVE BLOCK Routine 12/30/2021 12:56 Resul ts for this WITH ULTRASOUND PM RECORD KEEPER procedure ar e in the results section. LDA ANE UPPER Routine 12/30/2021 12:56 Results fo r this EXTREMITY PNC PM RECORD KEEPER procedure are in the results section. WI US GUIDE PLC NDL Routine 12/30/2021 12:56 Resu lts for this PM RECORD KEEPER procedure are i n the results section. WI INJ ANES BRACHIAL Routine 12/30/2021 12:56 Res ults for this PLEXUS CONT PM RECORD KEEPER procedure are i n the results section. documented in this encounter Results LDA ANE ENDOTRACHEAL AIRWAY (12/30/2021 1:02 PM RECORD KEEPER) Narrative Emre Rodriguez APRN, CRNA - 12/30/2021 1:02 PM RECORD KEEPER Emre Rodriguez APRN, CRNA ? 12/30/2021 ??2:30 [...] Airway event: no complications ATTESTATION STATEMENT Clifford Yuong M.D. ANESTHESIA ORDERABLES WI INJ ANES BRACHIAL PLEXUS CONT, WI US GUIDE PLC NDL, LDA ANE UPPER EXTREMITY PNC, MC ANE NERVE BLOCK WITH ULTRASOUND (12/30/2021 12:56 PM RECORD KEEPER) Narrative Clifford Khanna M.D. - 12/30/2021 12:56 P M RECORD KEEPER Clifford Khanna M.D. ? 12/30/2021 12:57 PM [...] 5 % injection Given 12/30/2021 1:52 PM RECORD KEEPER 250 mL intravenous, As needed, Starting on Tue12/30/21 at 1352, Anesthesia Intra-op bupivacaine PF 0.5 % (5 mg/mL) injection Given 12/30/2021 12:45 PM RECORD KEEPER 10 mL (MARCAINE) intrathecal, As needed, Starting on Tue12/30/21 at 1245, Anesthesia Intra-op ceFAZolin injection 2,000 mg (ANCEF) Given 12/30/2021 2:19 PM RECORD KEEPER 2 g 2,000 mg (rounded from 1,747.5 [...] dexAMETHasone injection (DECADRON) Given 12/30/2021 1:09 PM RECORD KEEPER 8 mg intravenous, As needed, Starting on Tue12/30/21 at 1309, Anesthesia Intra-op diphenhydrAMINE injection (BENADRYL) Given 12/30/2021 1:32 PM RECORD KEEPER 12.5 mg intravenous, As needed, Starting on Tue12/30/21 at 1332, Anesthesia Intra-op ePHEDrine (PF) injection Given 12/30/2021 1:58 PM RECORD KEEPER 10 mg intravenous, As needed, Starting on Tue12/30/21 at 1346, Anesthesia Intra-op Given 12/30/2021 1:46 PM RECORD KEEPER 5 mg Given 12/30/2021 1:24 PM RECORD KEEPER 10 mg fentaNYL injection (SUBLIMAZE) Given 12/30/2021 3:12 PM RECORD KEEPER 50 mcg intravenous, As needed, Starting on Tue12/30/21 at 1512, Anesthesia Intra-op ketamine injection (KETALAR) Given 12/30/2021 2:43 PM RECORD KEEPER 20 mg intravenous, As needed, Starting on Tue12/30/21 at 1443, Anesthesia Intra-op lactated ringers New Bag 12/30/2021 12:53 PM RECORD KEEPER intravenous, Continuous Infusion: Per Instructions PRN, Starting on Tue12/30/21 at 1253, Anesthesia Intra-op ondansetron (PF) injection (ZOFRAN) Given 12/30/2021 3:00 PM RECORD KEEPER 4 mg intravenous, As needed, Starting on Tue12/30/21 at 1500, Anesthesia Intra-op phenylephrine 80 mcg/mL in Rate/Dose 12/30/2021 3:00 0.4 mcg/kg/min 20.97 NaCl 0.9% 250 mL infusion Change PM RECORD KEEPER mL/hr intravenous, Continuous Infusion: Per Instructions PRN, Starting on Tue12/30/21 at 1404, Anesthesia Intra-op Rate/Dose Change 12/30/2021 2:36 PM RECORD KEEPER 0.3 mcg/kg/min 15.728 mL/hr Rate/Dose Change 12/30/2021 2:25 PM RECORD KEEPER 0.25 mcg/kg/min 13.106 mL/h r phenylephrine injection Given 12/30/2021 2:31 PM RECORD KEEPER 100 mcg intravenous, As needed, Starting on Tue12/30/21 at 1346, Anesthesia Intra-op Given 12/30/2021 2:12 PM RECORD KEEPER 100 mcg Given 12/30/2021 2:10 PM RECORD KEEPER 100 mcg propofol 10 mg/mL infusion New Bag 12/30/2021 1:15 50 mcg/kg/min 2 0.97 mL/hr (DIPRIVAN) PM RECORD KEEPER intravenous, Continuous Infusion: Per Instructions PRN, Starting on Tue12/30/21 at 1315, Anesthesia Intra-op New Bag 12/30/2021 1:09 PM RECORD KEEPER 50 mcg/kg/min 20.97 mL/hr propofoL injection (DIPRIVAN) Given 12/30/2021 12:59 PM RECORD KEEPER 140 mg intravenous, As needed, Starting on Tue12/30/21 at 1259, Anesthesia Intra-op rocuronium injection (ZEMURON) Given 12/30/2021 1:12 PM RECORD KEEPER 10 mg intravenous, As needed, Starting on Tue12/30/21 at 1301, Anesthesia Intra-op Given 12/30/2021 1:01 PM RECORD KEEPER 50 mg sugammadex injection (BRIDION) Given 12/30/2021 3:14 PM RECORD KEEPER 139.8 mg intravenous, As needed, Starting on [...] as of this encounter Care Teams Certified Ski Patroller Relationship Specialty Start Date End Date Elsewhere, Pcp PCP - General Family Medicine 12/25/21 documented as of this encounter
--- OUTSIDE RECORDS SUMMARY | 2022-09-14 12:03 | XMS_ITS | Encounter Summary ---
:1965 Author Organization [facility] Address [address] [place] [address] Care Team Providers Name Role Phone Unavailable Primary Care Provider Unavailable Encounter Details Date Type Department Care Team Description 11/25/2021 Clinical Communication Department of Guillermo Patterson, Neurologic Surgery in [place], [place] [address] [place] [address] [address] [place] [phone] Social History Tobacco Use Types Packs/Day Years [...] be seen through ED, or local provider/neurology. INUOUS IMPROVEMENT FACILITATOR documented in this encounter Plan of Treatment Not on filedocumented as of this encounter Visit Diagnoses Not on filedocumented in this encounter Additional Health Concerns Assessment Noted Time PHQ-9 Depression Total Score: 16 02/11/2021 12:00 AM C DT documented as of this encounter
--- OUTSIDE RECORDS SUMMARY | 2022-09-14 12:03 | XMS_ITS | Encounter Summary ---
:1965 Author Organization [facility] Address [address] [place] [address] Care Team Providers Name Role Phone Unavailable Primary Care Provider Unavailable Reason for Referral MRI/CAT/PET Scan (Routine) - Authorized Specialty Diagnoses / Procedures Referred By Contact Refer red To Contact Radiology Diagnoses Stroke Cerebrovascular Accident Personal History Occlusion Vertebral Artery With lnfarction (HCC) Robert Diehl M.D. [facility] Procedures MR Neck Angiogram without and with IV Contrast [address] [place] [address] Referral ID Status Reason Start Date Expiration Date Visits V isits Requested Authorized [id number] Authorized 12/10/2021 12/10/2022 1 1 INUM AND PALLADIUM KETTLE TENDER Outpatient (Routine) - Authorized Specialty Diagnoses / Procedures Referred By Contact Refer red To Contact Diagnoses Aneurysm Cerebral Unruptured (HCC) Robert Diehl M.D. [facility] Procedures PM Device interrogation (clinic) [address] [place] [address] Referral ID Status Reason Start Date Expiration Date Visits V isits Requested Authorized [id number] Authorized 12/10/2021 12/10/2022 1 1 INUM AND PALLADIUM KETTLE TENDER MRI/CAT/PET Scan (Routine) - Authorized Specialty Diagnoses / Procedures Referred By Contact Refer red To Contact Radiology Diagnoses Aneurysm Cerebral Unruptured (HCC) Robert Diehl M.D. [facility] Procedures MR Brain Angiogram without IV Contrast [address] [place] [address] Referral ID Status Reason Start Date Expiration Date Visits V isits Requested Authorized [id number] Authorized 12/10/2021 12/10/2022 1 1 INUM AND PALLADIUM KETTLE TENDER Reason for Visit Reason Comments Michel Encounter Details Date Type Department Care Team Description 12/10/2021 Clinical Communication Department of Robert Diehl W8[facility] in [place], [place] [address] [email or web address] [address] [place] [phone] Social History Tobacco Use Types Packs/Day Years [...] you attend moravian or Patient refused 2021 voodoo services? Do [...] 2:58 PM CST Signed and thank you. INUM AND PALLADIUM KETTLE TENDER documented in this encounter Plan of Treatment Scheduled Orders Name Type Priority Associated Diagnoses Order S chedule MR Brain Angiogram Imaging RAD - Routine Aneurysm Cerebral Exp ected: without IV Contrast (most inpatients Unruptured ([facility]) 05/03/2022, and all Expires: outpatients) 03/10/2023 PM Device Procedures Routine Aneurysm Cerebral Expected: interrogation Unruptured ([facility]) 12/29/2021 , (clinic) Expires: 03/10/2023 MR Neck Angiogram Imaging RAD - Routine Stroke Cerebrovascular Expected: without and with IV (most inpatients Accident Personal 05/03/2022 Contrast and all History (Approximate), outpatients) Occlusion Vertebral Expires: Artery With lnfarction 03/10 ([facility]) documented as of this encounter Visit Diagnoses Diagnosis Stroke Cerebrovascular Accident Personal History - Primary Aneurysm Cerebral Unruptured ([facility]) Occlusion Vertebral Artery With lnfarcti on ([facility]) documented in this encounter Additional Health Concerns Assessment Noted Time PHQ-9 Depression Total Score: 16 02/11/2021 12:00 AM C DT documented as of this encounter
--- OUTSIDE RECORDS SUMMARY | 2022-09-14 12:03 | XMS_ITS | Encounter Summary ---
:1965 Author Organization [facility] Address [address] [place] [address] Care Team Providers Name Role Phone Elsewhere, Pcp Primary Care Provider Unavailable Reason for Referral Outpatient (Routine) - Closed Specialty Diagnoses / Procedures Referred By Contact Refer red To Contact Orthopedic Surgery Diagnoses Pain Shoulder Left Alfredo Herrera, [facility] [address] [place] [phone] Referral ID Status Reason Start Date Expiration Date Visits Requ ested Visits Authorized [id number] Closed 12/30/2021 12/30/2022 1 1 OR STRATEGY MANAGER Reason for Visit Reason Comments Pre-visit Testing Orders Encounter Details Date Type Department Care Team Description 12/29/2021 Clinical Communication Department of Jam Pre- visit Testing Orthopedic Surgery Cyrus Souza M.D. Orders in [address] [place] [phone] [place], [place] [phone] (Work) [phone] Social History Tobacco Use Types Packs/Day Years [...] you attend lutheran or Patient refused 2021 lutheran services? Do [...] 12/29/2021 1:06 PM CST Please sign order OR STRATEGY MANAGER documented in this encounter Plan of Treatment Scheduled Referrals Name Type Priority Associated Order Schedule Diagnoses Orthopedic Surgery Outpatient Referral Routine Pain Shoulder L eft Expected: Pre Op (clinic) 02/24/2022, Expires: 03/28/2023 documented as of this encounter Results SARS CoV-2 RNA, PCR, Varies Asymptomatic (02/25/2022 11:09 AM CDT) Patholo gist Method Time Signature SARS CoV-2 Swab, 02/25/2022 [...] Drug Administration an d is used per rotary dryer operator's instructions. Performance characteristics were verified by [facility] in a manner consistent with CLIA requirements. Visit the CDC website: https://www.cdc.g ov/coronavirus/ for the most recent guidelines on Coron avirus testing. Fact Sheet for Healthcare Providers: https://www.fda.gov/media/860633/downloa d Fact Sheet for Patients: https://www.fda.gov/media/491534/downloa d Specimen Anatomical Collection Method Collection Time Receive d Time (Source) Location / / Volume Laterality Varies 02/25/2022 11:09 02/25/2022 (Nasopharynx) AM CDT 11:40 AM CDT Alfredo Kamara LAB MICROBIOLOGY - GENERAL O RDERABLES Performing Organization Address City/State/ZIP Code Phon e Number [facility] [place], [place] [address] [place] [address] Laboratories-[facility] [address] documented in this encounter Visit Diagnoses Diagnosis Pain Shoulder Left - Primary documented in this encounter Additional Health Concerns Infection Onset Date Last Indicated Resolved Time COVID19 Pending 12/29/2021 12/29/2021 12/29/2021 4:20 PM SENIOR STRATEGY MANAGER Assessment Noted Time PHQ-9 Depression Total Score: 16 02/11/2021 12:00 AM C DT documented as of this encounter Care Teams Tape Librarian Relationship Specialty Start Date End Date Elsewhere, Pcp PCP - General Family Medicine 12/25/21 documented as of this encounter
--- OUTSIDE RECORDS SUMMARY | 2022-09-14 12:04 | XMS_ITS | Encounter Summary ---
:1965 Author Organization [facility] Address [address] [place] [address] Care Team Providers Name Role Phone Unavailable Primary Care Provider Unavailable Reason for Visit Physical Therapy (Routine) - Closed Specialty Diagnoses / Procedures Referred By Contact Refer red To Contact Diagnoses Dissociation Scapholunate Left Dario Noel M.D. [facility] Procedures PT or OT eval and treat (first available) [address] [place] [phone] Referral ID Status Reason Start Date Expiration Date Visits Requ ested Visits Authorized [id number] Closed 06/08/2021 06/08/2022 99 99 Encounter Details Date Type Department Care Team Description 06/08/2021 Clinical Support Department of Physical German Noel M.D. [address] [place] [phone] Pain Wrist Left (Primary Dx); Medicine and Veena Quevedo M.S., C.H.T., O.T. [address] [place] [phone] Dissociation Scapholunate Left Rehabilitation in [place], [place] [address] [place] [phone] Social History Tobacco Use Types Packs/Day [...] you attend protestant or Patient refused 2021 tenriism services? Do [...] or the highest technical, or vocational p [facility] degree you have received? Sex Assigned at [...] (HCC) ??? Nicotine Dependence Unspecified ??? Other Art Librarian Current Drug Therapy Past Surgical History: Procedure [...] the following home instruction handouts: Splint Receipt [id number]. Active Hand Exercises (Six Pack) [id number]. Active Wrist Exercises [id number] Assessment Clinical Impression: The patient tolerated the [...] the total time spent with this patient. Veena Quevedo M.S., O.T. documented in this encounter Plan of Treatment Not on filedocumented as of this encounter Visit Diagnoses Diagnosis Pain Wrist Left - Primary Dissociation Scapholunate Left documented in this encounter Additional Health Concerns Assessment Noted Time PHQ-9 Depression Total Score: 16 02/11/2021 12:00 AM C DT documented as of this encounter
--- OUTSIDE RECORDS SUMMARY | 2022-09-14 12:04 | XMS_ITS | Encounter Summary ---
:1965 Author Organization [facility] Address [address] [place] [address] Care Team Providers Name Role Phone Unavailable Primary Care Provider Unavailable Encounter Details Date Type Department Care Team Description 09/23/2021 Hospital Encounter Department of Alfredo Herrera Total Joint Radiology, Anh Gonzales Arthroplasty Initial Building, in [address] [place] [address] ([facility]) [facility] [phone] [place] [address] [place], [place] (Work) [phone] Social History Tobacco Use Types Packs/Day Years [...] you attend alevism or Patient refused 2021 sikh services? Do [...]
--- OUTSIDE RECORDS SUMMARY | 2022-09-14 12:04 | XMS_ITS | Encounter Summary ---
:1965 Author Organization [facility] Address [address] [place] [address] Care Team Providers Name Role Phone Unavailable Primary Care Provider Unavailable Reason for Visit Reason Comments Nicotine Dependence Encounter Details Date Type Department Care Team Description 07/30/2021 Clinical Communication Department of [facility], Carolyn Mccarthy cotine Dependence Nicotine M.S., Dependence, C.T.T.S., [facility] in [address] [place] [phone] [place], [place] [phone] (Work) [phone] Social History Tobacco Use Types Packs/Day Years [...] you attend judaism or Patient refused 2021 evangelical services? Do [...]
--- OUTSIDE RECORDS SUMMARY | 2022-09-14 12:04 | XMS_ITS | Encounter Summary ---
:1965 Author Organization [facility] Address [address] [place] [address] Care Team Providers Name Role Phone Unavailable Primary Care Provider Unavailable Encounter Details Date Type Department Care Team Description 09/23/2021 Hospital Encounter Department of Alfredo Herrera Total Joint Laboratory Medicine A, O.PEmilioCBritton Arthroplasty Initial and Pathology, [address] [place] [address] ([facility]) [facility] in [facility] [phone] [place] [phone] 200 [facility] (Work) [place], [place] [phone] (Fax) [phone] Social History Tobacco Use Types Packs/Day Years [...] (ABNORMAL) Sedimentation Rate (09/23/2021 9:07 AM CDT) [facility] Method Time Signature Sedimentation 31 (H) 2 - 22 09/23/2021 DTL Rate, B mm/h 10:46 AM CDT Specimen Anatomical Collection Method Collection Time Receive d Time (Source) Location / / Volume Laterality Blood (Blood, 09/23/2021 9:07 AM 09/23/20 9:30 Venous) CDT AM CDT Alfredo Kamara LAB BLOOD ADD-ON Performing Organization Address City/[facility] Phon e Number [facility] - 200 [place], [place] [address] [place] [address] [place] [address] CRP (C-Reactive Protein) (09/23/2021 9:07 AM CDT) P athologist Signature C-Reactive <3.0 <=8.0 mg/L 09/23/2021 DTL Protein (CRP), 10:30 AM CDT S Specimen Anatomical Collection Method Collection Time Receive d Time (Source) Location / / Volume Laterality Blood (Blood, 09/23/2021 9:07 AM 09/23/20 9:57 Venous) CDT AM CDT Alfrdeo Kamara LAB BLOOD ADD-ON Performing Organization Address City/[facility] Phon e Number [facility] - 200 [place], [place] [address] [facility] [address] (ABNORMAL) CBC with Differential, Blood (09/23/2021 9:07 AM CDT) [facility] Method Time Signature Hemoglobin 10.1 (L) [...] Address City/State/ZIP Code Phon e Number [facility] - [address] [place], [place] [address] [facility] [place] [address] Laboratories-[facility] [address] documented in this encounter Visit Diagnoses Diagnosis Painful Total Joint Arthroplasty Initial (HCC) documented in this encounter Additional Health Concerns Assessment Noted Time PHQ-9 Depression Total Score: 16 02/11/2021 12:00 AM C DT documented as of this encounter
--- OUTSIDE RECORDS SUMMARY | 2022-09-14 12:04 | XMS_ITS | Encounter Summary ---
:1965 Author Organization [facility] Address [address] [place] [address] Care Team Providers Name Role Phone Unavailable Primary Care Provider Unavailable Reason for Visit Reason Comments Nicotine Dependence Encounter Details Date Type Department Care Team Description 07/16/2021 Clinical Communication Department of [facility], Carolyn Mccarthy cotine Dependence Nicotine M.S., Dependence, C.T.T.S., [facility] in [address] [place] [phone] [place], [place] [phone] (Work) [phone] Social History Tobacco Use Types Packs/Day Years [...] you attend evangelical or Patient refused 2021 sabianism services? Do [...]
--- OUTSIDE RECORDS SUMMARY | 2022-09-14 12:04 | XMS_ITS | Encounter Summary ---
:1965 Author Organization [facility] Address [address] [place] [address] Care Team Providers Name Role Phone Unavailable Primary Care Provider Unavailable Reason for Visit Reason Comments pain medication Encounter Details Date Type Department Care Team Description 06/04/2021 Clinical Communication Department of [facility], Dario willard medication Orthopedic Surgery Lilian Alejo in [place], [facility] [place], [place] [address] [place] [phone] [place], [place] [phone] (Work) [phone] Social History Tobacco Use Types Packs/Day Years [...] you attend buddhist or Patient refused 2021 samaritan services? Do [...] Notes Telephone Encounter - Michael Noble Jr., P.A.-Araceli - 06/04/2021 1:53 PM CDT I spoke [...] meds/scripts. Patient would like a call - [phone] documented in this encounter Plan of Treatment Not on filedocumented as of this encounter Visit Diagnoses Not on filedocumented in this encounter Additional Health Concerns Assessment Noted Time PHQ-9 Depression Total Score: 16 02/11/2021 12:00 AM C DT documented as of this encounter
--- OUTSIDE RECORDS SUMMARY | 2022-09-14 12:04 | XMS_ITS | Encounter Summary ---
:1965 Author Organization [facility] Address [address] [place] [address] Care Team Providers Name Role Phone Unavailable Primary Care Provider Unavailable Reason for Visit MRI/CAT/PET Scan (Routine) - Canceled Specialty Diagnoses / Procedures Referred By Contact Refer red To Contact Radiology Diagnoses Aneurysm Cerebral Unruptured (HCC) Robert Diehl M.D. [facility] Procedures MR Brain Angiogram without IV Contrast [address] [place] [phone] Referral ID Status Reason Start Date Expiration Date Visits V isits Requested Authorized [id number] Canceled 09/15/2020 09/15/2021 1 1 Encounter Details Date Type Department Care Team Description 09/18/2021 Hospital Encounter Department of Robert Diehl ed (Patient: Radiology, Severiano Celaya M.D. Request) [facility], [address] [place], [place] [address] [place] [phone] [place], [place] [phone] (Work) [phone] Social History Tobacco Use Types Packs/Day Years [...] morning. butalbital-acetaminophen Take 1 tablet by 0 04/02 /2021 -caff (ESGIC) 50-325-40 mouth every 6 (six) [...]
--- OUTSIDE RECORDS SUMMARY | 2022-09-14 12:04 | XMS_ITS | Encounter Summary ---
:1965 Author Organization [facility] Address 200 [place] [address] Care Team Providers Name Role Phone Unavailable Primary Care Provider Unavailable Reason for Referral Outpatient (Routine) - Closed Specialty Diagnoses / Procedures Referred By Contact Refer red To Contact Diagnoses Painful Total Joint Arthroplasty Initial (HCC) Alfredo Herrera [facility] Procedures US Major Joint Aspiration and or Injection Left O.P.A[facility]. 200 [place] [address] Referral ID Status Reason Start Date Expiration Date Visits Requ ested Visits Authorized [id number] Closed 09/07/2021 09/07/2022 1 1 Outpatient (Routine) - Closed Specialty Diagnoses / Procedures Referred By Contact Refer red To Contact Diagnoses Painful Total Joint Arthroplasty Initial (HCC) Alfredo Her[facility] Procedures US Musculoskeletal Shoulder Left [facility]. 200 [place] [address] Referral ID Status Reason Start Date Expiration Date Visits Requ ested Visits Authorized [id number] Closed 09/07/2021 09/07/2022 1 1 MRI/CAT/PET Scan (Routine) - Closed Specialty Diagnoses / Procedures Referred By Contact Refer red To Contact Radiology Diagnoses Painful Total Joint Arthroplasty Initial (HCC) Alfredo Her[facility] Procedures CT Shoulder Left without IV Contrast [facility]. [address] [place] [address] Referral ID Status Reason Start Date Expiration Date Visits Requ ested Visits Authorized [id number] Closed 09/07/2021 09/07/2022 1 1 Reason for Visit Reason Comments Pre-visit Testing Orders L shldr - prev. TSA Encounter Details Date Type Department Care Team Description 09/07/2021 Clinical Communication Department of Jam, Pre- visit Testing Orthopedic Surgery Cyrus Souza M.D. Orders (L shldr - in [address] prev[address] TSA) [place], [place] [address] [place] [phone] [place], [place] [phone] (Work) [phone] Social History Tobacco Use Types Packs/Day Years [...] PROCEDURES Mycobacterial Culture (09/25/2021 1:48 PM CDT) [facility] Method Time Signature Mycobacterial No growth 11/07/2021 DTL Culture after 42 1:03 AM SERVICE ORDER DISPATCHER CHIEF days of incubation . Specimen Anatomical Collection Method Collection Time Receive d Time (Source) Location / / Volume Laterality Fluid (Synovial 09/25/2021 1:48 PM 2020 3:42 Fluid, Left CDT PM CDT Shoulder) Comment: Specimen Source Site: Fluid Narrative [facility] - 11/07/2021 1:03 AM SERVICE ORDER DISPATCHER CHIEF Fungal and Mycobacteria specimens plated for culture, volume inadequate for optimal recovery. Alfredo Kamara LAB MICROBIOLOGY - GENERAL O RDERABLES Performing Organization Address City/State/ZIP Code Phon e Number [facility] - [address] [place], [place] [address] [facility] [place] [address] [facility] [address] Fungal Culture, Routine (09/25/2021 1:48 PM CDT) [facility] Method Time Signature Fungal No growth 10/20/2021 DTL Culture, after 24 1:01 AM SERVICE ORDER DISPATCHER CHIEF Routine days of incubation. Specimen Anatomical Collection Method Collection Time Receive d Time (Source) Location / / Volume Laterality Fluid (Synovial 09/25/2021 1:48 PM 10/29/ 2021 3:42 Fluid, Left CDT PM CDT Shoulder) Comment: Specimen Source Site: Fluid Narrative [facility] - 10/20/2021 1:01 AM SERVICE ORDER DISPATCHER CHIEF Fungal and Mycobacteria specimens plated for culture, volume inadequate for optimal recovery. Alfredo Kamara LAB MICROBIOLOGY - GENERAL O RDERABLES Performing Organization Address [facility] Phon e Number [facility] - 200 [place], [place] [address] [facility] DTL [place] [id number] [facility] Crystal Identification, Synovial Fluid (09/25/2021 1:48 PM CDT) Analysis Performed At [facility] Time Signature Crystal ID, None seen None seen 09/25/2021 [facility] Synovial Fl 4:56 PM CDT Reviewed by: Tech 09/25/2021 [facility] 4:56 PM CDT Specimen Anatomical Collection Method Collection Time Receive d Time (Source) Location / / Volume Laterality Fluid (Synovial 09/25/2021 1:48 PM 2020 3:27 Fluid, Left CDT PM CDT Shoulder) Alfredo Kamara LAB BODY FLUIDS AND STOOLS O RDERABLES Performing Organization Address [facility] Phon e Number [facility] - [address] [place] [address] [place] [address] (ABNORMAL) [facility] Bacteria PCR+Sequencing (09/25/2021 1:48 PM CDT) Component Value Ref Test Analysis Performed At [facility] Method Time Signature Broad Range This test was developed and its performance characteri stics 10/06/2021 DTL Bacteria determined by [facility] in a manner consistent with 1:24 PM SERVICE ORDER DISPATCHER CHIEF PCR+Sequencin CLIA requirements. This test has not been cleared or g approved by the U.S. Food and Drug Administration. (A) [facility] Range STAPHYLOCOCCUS EPIDERMIDIS 10/06/2021 DTL Bacteria DNA detected 1:24 PM SERVICE ORDER DISPATCHER CHIEF PCR+Sequencin (A) g Comment: Semi-Urgent Result. Semi-Urgent This is a semi-urgent result [facility] - () [facility] Specimen Anatomical Collection Method Collection Time Receive d Time (Source) Location / / Volume Laterality Fluid (Synovial 09/25/2021 1:48 PM 2020 3:42 Fluid, Left CDT PM CDT Shoulder) Comment: Specimen Source Site: Fluid Narrative [facility] - 10/06/2021 1:24 PM SERVICE ORDER DISPATCHER CHIEF Fungal and Mycobacteria specimens plated for culture, volume inadequate for optimal recovery. Alfredo Kamara LAB MICROBIOLOGY - GENERAL O MARY Performing Organization Address [facility] Phon e Number [facility] - [address] Bacterial Culture, Anaerobic + Susc (09/25/2021 1:48 PM CDT) [facility] Method Time Signature Bacterial No growth 10/09/2021 DTL Culture, after 14 7:41 AM SERVICE ORDER DISPATCHER CHIEF Anaerobic + days of Susc incubation. Specimen Anatomical Collection Method Collection Time Receive d Time (Source) Location / / Volume Laterality Fluid (Synovial 09/25/2021 1:48 PM 2020 3:42 Fluid, Left CDT PM CDT Shoulder) Comment: Specimen Source Site: Fluid Narrative [facility] - 10/09/2021 7:41 AM SERVICE ORDER DISPATCHER CHIEF Fungal and Mycobacteria specimens plated for culture, volume inadequate for optimal recovery. Alfredo Kamara LAB MICROBIOLOGY - GENERAL O MARY Performing Organization Address City/[facility] Phon e Number [facility] - [address] (ABNORMAL) Bacterial Culture, Aerobic + Susc (09/25/2021 1:48 PM CDT) Component Value Ref Test Analysis Performed At [facility] Range Method Time Signature Bacterial STAPHYLOCOCCUS EPIDERMIDIS 09/30/2021 DT L Culture, [facility] [place] 2:35 PM CDT Aerobic + (A) Susc Comment: Semi-Urgent Result. Semi-Urgent This is a semi-urgent result [facility] () [facility] Specimen Anatomical Collection Method Collection Time Receive d Time (Source) Location / / Volume Laterality Fluid (Synovial 09/25/2021 1:48 PM 2020 3:42 Fluid, Left CDT PM CDT Shoulder) Comment: Specimen Source Site: Fluid Narrative [facility] - 09/30/2021 2:35 PM CDT Fungal [...] : epidermidis (MCG/ML) Susceptible Staphylococcus Levofloxacin SUSCEPTIBILITY, SANDAR >4 mcg/mL: R esistant epidermidis (MCG/ML) Comment: [...] [facility] [address] [place], [place] [address] [facility] [place] [address] [facility] [address] Gram Stain (09/25/2021 1:48 PM CDT) [facility] Method Time Signature Gram Stain [...] [facility] [address] [place], [place] [address] [facility] [place] [address] [facility] [address] [...] (ABNORMAL) Sedimentation Rate (09/23/2021 9:07 AM CDT) [facility] gist Method Time Signature Sedimentation 31 (H) 2 - 22 09/23/2021 DTL Rate, B mm/h 10:46 AM CDT Specimen Anatomical Collection Method Collection Time Receive d Time (Source) Location / / Volume Laterality Blood (Blood, 09/23/2021 9:07 AM 09/23/20 21 9:30 Venous) CDT AM CDT Alfredo Kamara LAB BLOOD ADD-ON Performing Organization Address [facility] Phon e Number [facility] - [address] [place], [place] [address] [facility] [place], [place] [phone] [place] [address] CRP (C-Reactive Protein) (09/23/2021 9:07 AM CDT) P athologist Signature C-Reactive <3.0 <=8.0 mg/L 09/23/2021 DTL Protein (CRP), 10:30 AM CDT S Specimen Anatomical Collection Method Collection Time Receive d Time (Source) Location / / Volume Laterality Blood (Blood, 09/23/2021 9:07 AM 09/23/20 9:57 Venous) CDT AM CDT Alfredo Kamara LAB BLOOD ADD-ON Performing Organization Address City/[facility] Phon e Number [facility] - [address] [place], [place] [address] [place] [address] [place], [place] [phone] [place] [address] (ABNORMAL) CBC with Differential, Blood (09/23/2021 9:07 [...] [facility] [address] [place], [place] [address] [facility] [place] [address] [facility] [address] [...]
--- OUTSIDE RECORDS SUMMARY | 2022-09-14 12:04 | XMS_ITS | Encounter Summary ---
:1965 Author Organization [facility] Address [address] [place] [address] Care Team Providers Name Role Phone Unavailable Primary Care Provider Unavailable Reason for Visit Reason Comments Pain Appointment Request (Routine) - Closed Specialty Diagnoses / Procedures Referred By Contact Refer red To Contact Orthopedic Surgery Diagnoses Arthroplasty Total Shoulder Replacement Status Post Left David Cohn M.D. [address] [facility] [address] [place] [address] Referral ID Status Reason Start Date Expiration Date Visits Requ ested Visits Authorized [id number] Closed 09/04/2021 09/04/2022 1 1 Encounter Details Date Type Department Care Team Description 09/23/2021 Comprehensive Visit Department of Cyrus Polk Pain Shoulder Left Orthopedic Surgery Lilian Souza (Primary Dx) in [address] [place] [phone] [place], [place] [phone] (Work) [phone] Social History Tobacco Use Types Packs/Day Years [...] No 05/17/2022 organizations such as restorationist groups, [employer], Journeys or athletic groups, or school groups? How [...]
--- OUTSIDE RECORDS SUMMARY | 2022-09-14 12:04 | XMS_ITS | Encounter Summary ---
:1965 Author Organization [facility] Address [address] [place] [address] Care Team Providers Name Role Phone Unavailable Primary Care Provider Unavailable Reason for Visit Reason Comments Nicotine Dependence Encounter Details Date Type Department Care Team Description 07/24/[address] [facility], Carolyn Mccarthy cotine Dependence Nicotine M.S., Dependence, C.T.T.S., [facility] in [address] [place] [phone] [place], [place] [phone] (Work) [phone] Social History Tobacco Use Types Packs/Day Years [...]
--- OUTSIDE RECORDS SUMMARY | 2022-09-14 12:04 | XMS_ITS | Encounter Summary ---
:1965 Author Organization [facility] Address [address] [place] [address] Care Team Providers Name Role Phone Unavailable Primary Care Provider Unavailable Reason for Referral Outpatient (Routine) - Closed Specialty Diagnoses / Procedures Referred By Contact Refer red To Contact Orthopedic Surgery Dario Noel M .D. [facility] 200 [place] [address] Referral ID Status Reason Start Date Expiration Date Visits Requ ested Visits Authorized [id number] Closed 06/08/2021 06/08/2022 1 1 Physical Therapy (Routine) - Closed Specialty Diagnoses / Procedures Referred By Contact Refer red To Contact Diagnoses Dissociation Scapholunate Left Dario Noel M.D. [facility] Procedures PT or OT eval and treat (first available) [address] [place] [phone] Referral ID Status Reason Start Date Expiration Date Visits Requ ested Visits Authorized [id number] Closed 06/08/2021 06/08/2022 99 99 Outpatient (Routine) - Closed Specialty Diagnoses / Procedures Referred By Contact Refer red To Contact Diagnoses Dissociation Scapholunate Left Michael Downs M.D. [facility] Procedures ORS Cast Room Visit [address] [place] [phone] Referral ID Status Reason Start Date Expiration Date Visits Requ ested Visits Authorized [id number] Closed 05/08/2021 05/08/2022 1 1 Reason for Visit Reason Comments Cast Check Follow-up Outpatient (Routine) - Closed Specialty Diagnoses / Procedures Referred By Contact Refer red To Contact Diagnoses Dissociation Scapholunate Left Michael Downs M.D. [facility] Procedures ORS Cast Room Visit [address] [place] [phone] Referral ID Status Reason Start Date Expiration Date Visits Requ ested Visits Authorized [id number] Closed 05/08/2021 05/08/2022 1 1 Encounter Details Date Type Department Care Team Description 06/08/2021 Hospital Encounter Department of Paul Downs M.D. [address] [place] [phone] Dissociation Orthopedic Surgery Dario Noel M.D. [address] [place] [phone] Scapholunate Left in [place], [place] [address] [place] [phone] Social History Tobacco Use Types Packs/Day Years [...]
--- OUTSIDE RECORDS SUMMARY | 2022-09-14 12:04 | XMS_ITS | Encounter Summary ---
:1965 Author Organization [facility] Address 200 [place] [address] Care Team Providers Name Role Phone Unavailable Primary Care Provider Unavailable Reason for Referral Outpatient (Routine) - Closed Specialty Diagnoses / Procedures Referred By Contact Refer red To Contact Diagnoses Painful Total Joint Arthroplasty Initial (HCC) Alfredo Herrera [place] Procedures US Major Joint Aspiration and or Injection Left O.P.A.-C. 200 [place] [address] Referral ID Status Reason Start Date Expiration Date Visits Requ ested Visits Authorized [id number] Closed 09/07/2021 09/07/2022 1 1 Outpatient (Routine) - Closed Specialty Diagnoses / Procedures Referred By Contact Refer red To Contact Diagnoses Painful Total Joint Arthroplasty Initial (HCC) Alfredo Herrera [place] Procedures US Musculoskeletal Shoulder Left O.P.A.-C. 200 [place] [address] Referral ID Status Reason Start Date Expiration Date Visits Requ ested Visits Authorized [id number] Closed 09/07/2021 09/07/2022 1 1 Reason for Visit Outpatient (Routine) - Closed Specialty Diagnoses / Procedures Referred By Contact Refer red To Contact Diagnoses Painful Total Joint Arthroplasty Initial (HCC) Alfredo Herrera [place] Procedures US Major Joint Aspiration and or Injection Left O.P.A.-C. [address] [place] [phone] Referral ID Status Reason Start Date Expiration Date Visits Requ ested Visits Authorized [id number] Closed 09/07/2021 09/07/2022 1 1 Encounter Details Date Type Department Care Team Description 09/25/2021 Hospital Encounter Department of Alfredo Herrera Total Joint Radiology, Lebron Gonzales.P.A.-CBritton Arthroplasty Initial Building, in [address] [place] [address] ([facility]) [facility] [phone] [place] [address] [place], [place] (Work) [phone] Social History Tobacco Use [...] you attend faith or Patient refused 2021 hinduism services? Do [...] Differential, Body Fluid (09/25/2021 1:48 PM CDT) [facility] Method Time Signature Fluid Type Left 09/25/2021 DHPM Shoulder 4:50 PM CDT Gross Slightly 09/25/2021 DHPM Appearance bloody 4:50 PM CDT Total 31848 /mcL 09/25/2021 DHPM Nucleated 4:50 PM CDT Cells Comment: ----REFERENCE VALUE---- Synovial: <150 /mcL Peritoneal: <500 /mcL Pleural: <500 /mcL Pericardial: <500 /mcL ----ADDITIONAL INFORMATION---- This test has been modified from the man ufacturer's instructions. Its performance characteri stics were determined by [facility] in a manner co nsistent with [...] seen. Reviewed by: Tech 09/25/2021 7:38 PM [facility] CDT Specimen Anatomical Collection Method Collection Time Receive d Time (Source) Location / / Volume Laterality Fluid 09/25/2021 1:48 PM 3:27 CDT PM CDT Alfredo Kamara LAB BODY FLUIDS AND STOOLS O RDERABLES Performing Organization Address City/[facility]/ZIP Code Phon e Number [facility] - 200 [place], [place] [address] [facility] [place] [address] [facility] 200 [facility] Acid Fast Smear For Mycobacterium (09/25/2021 1:48 PM CDT) [facility] Method Time Signature Acid Fast Smear Negative. 09/26/2021 DTL For Mycobacterium 2:58 PM CDT Specimen Anatomical Collection Method Collection Time Receive d Time (Source) Location / / Volume Laterality Synovial Fluid, 09/25/2021 1:48 PM 2020 3:42 Left Shoulder CDT PM CDT Comment: Specimen Source Site: Fluid Narrative [facility] - [facility] - 09/26/2021 2:58 PM CDT Fungal and Mycobacteria specimens plated for culture, volume inadequate for optimal recovery. Alfredo Kamara LAB MICROBIOLOGY - GENERAL O RDERABLES Performing Organization Address City/[facility]/ZIP Code Phon e Number [facility] - [address] [place], [place] [address] [facility] [place] [address] [facility]-[address] Gram Stain (09/25/2021 1:48 PM CDT) [facility] Method Time Signature Gram Stain No [...] Organization Address City/State/ZIP Code Phon e Number [facility] - [address] [place], [place] [address] [facility] [place] [address] Laboratories-[facility] [address] (ABNORMAL) Bacterial Culture, Aerobic + Susc (09/25/2021 1:48 PM CDT) Component Value Ref Test Analysis Performed At Patholo gist Range Method Time Signature Bacterial STAPHYLOCOCCUS EPIDERMIDIS 09/30/2021 DT L Culture, One [place] 2:35 PM CDT Aerobic + (A) Susc Comment: Semi-Urgent Result. Semi-Urgent This is a semi-urgent result [facility] - ([facility]) [facility] S Specimen Anatomical Collection Method Collection Time Receive d Time (Source) Location / / Volume Laterality Fluid (Synovial 09/25/2021 1:48 PM 2020 3:42 Fluid, Left CDT PM CDT Shoulder) Comment: Specimen Source Site: Fluid Narrative [facility] - [facility] - 09/30/2021 2:35 PM CDT [...] GENERAL O RDERABLES Performing Organization Address City/[facility] Phon e Number [facility] - 200 [place], [place] [address] [place], [place] [phone] [place] [address] Bacterial Culture, Anaerobic + Susc (09/25/2021 1:48 PM CDT) [facility] Method Time Signature Bacterial No growth 10/09/2021 DTL Culture, after 14 7:41 AM FOCUSING MACHINE OPERATOR Anaerobic + days of Susc incubation. Specimen Anatomical Collection Method Collection Time Receive d Time (Source) Location / / Volume Laterality Fluid (Synovial 09/25/2021 1:48 PM 2020 3:42 Fluid, Left CDT PM CDT Shoulder) Comment: Specimen Source Site: Fluid Narrative [facility] - [facility] - 10/09/2021 7:41 AM FOCUSING MACHINE OPERATOR Fungal and Mycobacteria specimens plated for culture, volume inadequate for optimal recovery. Alfredo Kamara LAB MICROBIOLOGY - GENERAL O RDERABLES Performing Organization Address [facility] Phon e Number [facility] - [address] [place] [id number] [place] [address] (ABNORMAL) [facility] Bacteria PCR+Sequencing (09/25/2021 1:48 PM CDT) Component Value Ref Test Analysis Performed At [facility] Range Method Time Signature Broad Range This test was developed and its performance characteri stics 10/06/2021 DTL Bacteria determined by [facility] in a manner consistent with 1:24 PM FOCUSING MACHINE OPERATOR PCR+Sequencin CLIA requirements. This test has not been cleared or g approved by the U.S. Food and Drug Administration. (A) Broad Range STAPHYLOCOCCUS EPIDERMIDIS 10/06/2021 DTL Bacteria DNA detected 1:24 PM FOCUSING MACHINE OPERATOR PCR+Sequencin (A) g Comment: Semi-Urgent Result. Semi-Urgent This is a semi-urgent result [facility] - () [facility] Specimen Anatomical Collection Method Collection Time Receive d Time (Source) Location / / Volume Laterality Fluid (Synovial 09/25/2021 1:48 PM 2020 3:42 Fluid, Left CDT PM CDT Shoulder) Comment: Specimen Source Site: Fluid Narrative [facility] - 10/06/2021 1:24 PM FOCUSING MACHINE OPERATOR Fungal and Mycobacteria specimens plated for culture, volume inadequate for optimal recovery. Alfredo Kamara LAB MICROBIOLOGY - GENERAL O RDBRADLEYBLES Performing Organization Address City/[facility] Phon e Number [facility] - 200 [place], [place] [address] Crystal Identification, Synovial Fluid (09/25/2021 1:48 [...] AND STOOLS O RDERABLES Performing Organization Address City/[facility] Code Phon e Number [facility] - 200 [place], [place] [address] Fungal Culture, Routine (09/25/2021 1:48 PM CDT) [facility] Method Time Signature Fungal No growth 10/20/2021 DT Culture, after 24 1:01 AM FOCUSING MACHINE OPERATOR Routine days of incubation. Specimen Anatomical Collection Method Collection Time Receive d Time (Source) Location / / Volume Laterality Fluid (Synovial 09/25/2021 1:48 PM 2020 3:42 Fluid, Left CDT PM CDT Shoulder) Comment: Specimen Source Site: Fluid Narrative [facility] - 10/20/2021 1:01 AM FOCUSING MACHINE OPERATOR Fungal and Mycobacteria specimens plated for culture, volume inadequate for optimal recovery. Alfredo Kamara LAB MICROBIOLOGY - GENERAL O RDERABLES Performing Organization Address [facility] Phon e Number [facility] - [address] Mycobacterial Culture (09/25/2021 1:48 PM CDT) [facility] Method Time Signature Mycobacterial No growth 11/07/2021 DTL Culture after 42 1:03 AM FOCUSING MACHINE OPERATOR days of incubation . Specimen Anatomical Collection Method Collection Time Receive d Time (Source) Location / / Volume Laterality Fluid (Synovial 09/25/2021 1:48 PM 2020 3:42 Fluid, Left CDT PM CDT Shoulder) Comment: Specimen Source Site: Fluid Narrative [facility] - [facility] - 11/07/2021 1:03 AM FOCUSING MACHINE OPERATOR Fungal and Mycobacteria specimens plated for culture, volume inadequate for optimal recovery. Alfredo Kamara LAB MICROBIOLOGY - GENERAL O RDERABLES Performing Organization Address [facility] Phon e Number [facility] - [phone] [place] [address] documented in this encounter Visit Diagnoses Diagnosis [...]
--- OUTSIDE RECORDS SUMMARY | 2022-09-14 12:04 | XMS_ITS | Encounter Summary ---
:1965 Author Organization [facility] Address [address] [place] [address] Care Team Providers Name Role Phone Unavailable Primary Care Provider Unavailable Reason for Visit Reason Comments Med Refill Encounter Details Date Type Department Care Team Description 06/04/2021 Refill Department of Orthopedic Pulos, Dario Alejo M.D. Med Refill Surgery in [address] [address] [place] [address] [place] [address] [phone] Social History Tobacco Use Types Packs/Day Years [...]
--- OUTSIDE RECORDS SUMMARY | 2022-09-14 12:04 | XMS_ITS | Encounter Summary ---
:1965 Author Organization [facility] Address [address] [place] [address] Care Team Providers Name Role Phone Unavailable Primary Care Provider Unavailable Reason for Referral MRI/CAT/PET Scan (Routine) - Closed Specialty Diagnoses / Procedures Referred By Contact Refer red To Contact Radiology Diagnoses Painful Total Joint Arthroplasty Initial ([facility]) Alfredo Herrera [place] Procedures CT Shoulder Left without IV Contrast O.P.A.-C. [address] [place] [phone] Referral ID Status Reason Start Date Expiration Date Visits Requ ested Visits Authorized [id number] Closed 09/07/2021 09/07/2022 1 1 Reason for Visit MRI/CAT/PET Scan (Routine) - Closed Specialty Diagnoses / Procedures Referred By Contact Refer red To Contact Radiology Diagnoses Painful Total Joint Arthroplasty Initial ([facility]) Alfredo Herrera [place] Procedures CT Shoulder Left without IV Contrast O.P.A.-C. [address] [place] [phone] Referral ID Status Reason Start Date Expiration Date Visits Requ ested Visits Authorized [id number] Closed 09/07/2021 09/07/2022 1 1 Encounter Details Date Type Department Care Team Description 09/25/2021 Hospital Encounter Department of Alfredo Herrera Painful Total Joint Radiology, Emily HillAOmar Arthroplasty Initial Building, in [address] [place] [address] ([facility]) [facility] [address] [facility] [phone] [place], [place] (Work) [address] [phone] Social History Tobacco Use Types Packs/Day Years [...] you attend yarsanism or Patient refused 2021 hindu services? Do [...]
--- OUTSIDE RECORDS SUMMARY | 2022-09-14 12:05 | XMS_ITS | Encounter Summary ---
:1965 Author Organization [facility] Address [address] [place] [address] Care Team Providers Name Role Phone Unavailable Primary Care Provider Unavailable Encounter Details Date Type Department Care Team Description 03/11/2021 Clinical Communication Department of Ana Segura Orthopedic Surgery in [place], [place] [address] [address] [place] [phone] Social History Tobacco Use Types Packs/Day Years [...] you attend yazdanism or Patient refused 2021 restorationist services? Do [...] this encounter Miscellaneous Notes Telephone Encounter - Jeannetet Barboza L.P.N. - 03/16/2021 3:06 PM CDT Called and informed patient of recommendation. Patient would like to be seen in [place]. Referral line to [place] provided to angela batista. Patient aware she will call for apptointment. Telephone Encounter - Jerica Gee L.P.N. - 03/13/2021 9:09 AM CDT Left message to call clinic back. Needs to see a hand surgeon. Telephone Encounter - Christal Abraham L.P.NBritton - 03/12/2021 3:21 PM CDT Left message for patient to call back. She can contact [place], [place], or sarath frye if she choses. Telephone Encounter - Clemente Schofield M.D. - 03/12/2021 11:23 AM CDT She should see a hand surgeon Telephone Encounter - Esperanza Stratton - 03/11/2021 9:33 AM CDT Reason for Communication: Patient is calling in stating that she is being referred to be seen for a brake in her LEFT hand. Patient is stating that [facility] is requesting for patient to be seen by our orthopedic department. Patient is wanting to be seen in [place]. Unable to find any encounters regarding a [...]
--- OUTSIDE RECORDS SUMMARY | 2022-09-14 12:05 | XMS_ITS | Encounter Summary ---
:1965 Author Organization [facility] Address [address] [place] [address] Care Team Providers Name Role Phone Unavailable Primary Care Provider Unavailable Reason for Visit Reason Comments Communication Encounter Details Date Type Department Care Team Description 02/19/2021 Clinical Communication Department of Rossy Benjamin Neurologic Surgery [place], [place] Ph.D. [address] [place] [address] 200 [place] [phone] [phone] Social History Tobacco Use Types Packs/Day Years [...] you attend scientology or Patient refused 2021 mandaen services? Do [...]
--- OUTSIDE RECORDS SUMMARY | 2022-09-14 12:05 | XMS_ITS | Encounter Summary ---
:1965 Author Organization [facility] Address [address] [place] [address] Care Team Providers Name Role Phone Unavailable Primary Care Provider Unavailable Reason for Referral Outpatient (Routine) - Closed Specialty Diagnoses / Procedures Referred By Contact Refer red To Contact Diagnoses Dissociation Scapholunate Left Michael Downs M.D. [facility] Procedures ORS Cast Room Visit [address] [place] [phone] Referral ID Status Reason Start Date Expiration Date Visits Requ ested Visits Authorized [id number] Closed 05/08/2021 05/08/2022 1 1 Reason for Visit Reason Comments Follow-up Outpatient (Routine) - Closed Specialty Diagnoses / Procedures Referred By Contact Refer red To Contact Diagnoses Dissociation Scapholunate Left Michael Downs M.D. [facility] Procedures ORS Cast Room Visit [address] [place] [phone] Referral ID Status Reason Start Date Expiration Date Visits Requ ested Visits Authorized [id number] Closed 05/08/2021 05/08/2022 1 1 Encounter Details Date Type Department Care Team Description 05/08/2021 Hospital Encounter Department of Paul Downs M.D. [address] [place] [phone] Dissociation Orthopedic Surgery Dario Noel M.D. [address] [place] [phone] Scapholunate Left in [place], [place] [address] [place] [address] Social History Tobacco Use Types Packs/Day Years [...] short-arm cast was applied by the castroom fiber optics technician - The patient is nonweightbearing bearing [...]
--- OUTSIDE RECORDS SUMMARY | 2022-09-14 12:05 | XMS_ITS | Encounter Summary ---
:1965 Author Organization [facility] Address [address] [place] [address] Care Team Providers Name Role Phone Unavailable Primary Care Provider Unavailable Reason for Visit Reason Comments Vertigo and vision problems [facility] Encounter Details Date Type Department Care Team Description 02/18/2021 Clinical Communication Department of Fazal, Robert mendosa and vision Neurology in [place] Cel[place] problems ([facility]) [place], [facility] [address] [place], [place] [address] [place] [address] [place], [place] [phone] (Work) [phone] Social History Tobacco Use Types Packs/Day Years [...]
--- OUTSIDE RECORDS SUMMARY | 2022-09-14 12:05 | XMS_ITS | Encounter Summary ---
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 [facility] Procedures CT Head Neck Angiogram with IV Contrast 200 [place], [place] [address] Referral ID Status Reason Start Date Expiration Date Visits Requ ested Visits Authorized [id number] Closed 02/17/2021 02/17/2022 1 1 Encounter Details Date Type Department Care Team Description 03/12/2021 Hospital Encounter Department of Jeannette Cote ebral Infarction Radiology, Severiano Souza M.D. Due To Embolism Building, in 200 [facility] Vertebral [place], [place] Artery (HCC) [place] [address] [phone] [place], [place] (Work) [phone] Social History Tobacco Use Types Packs/Day Years [...] you attend christianity or Patient refused 2021 yazdanism services? Do [...] 4 Take 4-8 mg by mouth 1 04 / mg tablet every 8 (eight) hours as [...] N/A C omputed Tomography, Computed Neuroradiology ARZ [facility], Neuroradiology T omography F[facility] Specimen (Source) Anatomical [...] urysms. 3. 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 Otherwise [place] is intact. 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 Otherwise [place] is intact. Dolichoectasia of [...] urysms. 3. 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 Jeannette NIELSON [...]
--- OUTSIDE RECORDS SUMMARY | 2022-09-14 12:05 | XMS_ITS | Encounter Summary ---
:1965 Author Organization [facility] Address 200 [place] [address] Care Team Providers Name Role Phone Unavailable Primary Care Provider Unavailable Reason for Referral Outpatient (Routine) - Closed Specialty Diagnoses / Procedures Referred By Contact Refer red To Contact Neurological Surgery Jeannette Cote [place] [facility] [place] 200 [place] [address] Referral ID Status Reason Start Date Expiration Date Visits Requ ested Visits Authorized [id number] Closed 02/17/2021 02/17/2022 1 1 Scheduling Instructions Please schedule with Chief A Neurosurger y Service (Dr. Suhail Benjamin). 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 [facility] Procedures CT Head Neck Angiogram with IV Contrast 200 [place] [address] Referral ID Status Reason Start Date Expiration Date Visits Requ ested Visits Authorized [id number] Closed 02/17/2021 02/17/2022 1 1 Encounter Details Date Type Department Care Team Description 02/17/2021 Orders Only Department of Jeannette Cote Cerebral Infarction Neurologic Surgery jimmy Souza M.D. Due To Embolism Right [place], [place] [address] [facility] Vertebral Artery (HCC) [address] [place], [place] (Primary Dx) [place] [address] [phone] Social History Tobacco Use Types Packs/Day Years [...] Neuroradiology [facility], Neuroradiology T omography FLA [facility] Specimen (Source) Anatomical Collection Method Collection [...] ane urysms. 3. 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 Otherwise [place] is intact. Dolichoectasia of [...] 2 mm left supraclinoid aneurysm (557). Otherwise [place] is intact. Dolichoectasia of [...] ane urysms. 3. 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 Jeannette NIELSON CT [...]
--- OUTSIDE RECORDS SUMMARY | 2022-09-14 12:05 | XMS_ITS | Encounter Summary ---
:1965 Author Organization [facility] Address [address] [place] [address] Care Team Providers Name Role Phone Unavailable Primary Care Provider Unavailable Encounter Details Date Type Department Care Team Description 05/04/2021 Clinical Communication Department of Dario Noel , Orthopedic Surgery in [place], [place] [address] [place] [address] 200 [place] [phone] Social History Tobacco Use Types Packs/Day Years [...] you attend yazidism or Patient refused 2021 scientologist services? Do [...]
--- OUTSIDE RECORDS SUMMARY | 2022-09-14 12:05 | XMS_ITS | Encounter Summary ---
:1965 Author Organization [facility] Address [address] [place] [address] Care Team Providers Name Role Phone Unavailable Primary Care Provider Unavailable Reason for Referral MRI/CAT/PET Scan (Routine) - Closed Specialty Diagnoses / Procedures Referred By Contact Refer red To Contact Radiology Diagnoses Pain Wrist Left Michael Noble Jr., [facility] Procedures MR Wrist Left without IV Contrast P.A.-C. [address] [place] [address] [phone] Referral ID Status Reason Start Date Expiration Date Visits Requ ested Visits Authorized [id number] Closed 03/17/2021 03/17/2022 1 1 Reason for Visit MRI/CAT/PET Scan (Routine) - Closed Specialty Diagnoses / Procedures Referred By Contact Refer red To Contact Radiology Diagnoses Pain Wrist Left Michael Noble Jr., [facility] Procedures MR Wrist Left without IV Contrast P.A.-C. [address] [place] [address] [phone] Referral ID Status Reason Start Date Expiration Date Visits Requ ested Visits Authorized [id number] Closed 03/17/2021 03/17/2022 1 1 Encounter Details Date Type Department Care Team Description 03/24/2021 Hospital Encounter Department of Michael Noble Wrist Left Radiology, Hema Perez Jr.ABritton-CBritton [facility], in [address] [place] [address] [place], [place] [phone] [place], [place] [phone] (Work) [phone] Social History Tobacco Use Types Packs/Day Years [...] you attend jew or Patient refused 2021 congregation services? Do [...]
--- OUTSIDE RECORDS SUMMARY | 2022-09-14 12:05 | XMS_ITS | Encounter Summary ---
:1965 Author Organization [facility] Address [address] [place] [address] Care Team Providers Name Role Phone Unavailable Primary Care Provider Unavailable Reason for Visit Reason Comments Follow-up [facility] Patient Encounter Details Date Type Department Care Team Description 02/25/2021 Clinical Communication [facility] Neurology jimmy Celaya M.D. Patient) [place]pt[place], [facility] 1st [place], [place] [address] [place] [phone] [place], [place] [phone] (Work) [phone] Social History Tobacco Use Types Packs/Day Years [...] you attend bahai or Patient refused 2021 protestant services? Do [...] so I advised she report to the [facility] as soon as possible to be [...]
--- OUTSIDE RECORDS SUMMARY | 2022-09-14 12:05 | XMS_ITS | Encounter Summary ---
:1965 Author Organization [facility] Address [address] [place] [address] Care Team Providers Name Role Phone Unavailable Primary Care Provider Unavailable Reason for Referral Outpatient (Routine) - Closed Specialty Diagnoses / Procedures Referred By Contact Refer red To Contact Diagnoses Dissociation Scapholunate Left Michael Downs M.D. [facility] Procedures ORS Cast Room Visit 200 [address] [place] [address] Referral ID Status Reason Start Date Expiration Date Visits Requ ested Visits Authorized [id number] Closed 03/24/2021 03/24/2022 1 1 Outpatient (Routine) - Closed Specialty Diagnoses / Procedures Referred By Contact Refer red To Contact Diagnoses Dissociation Scapholunate Left Michael Downs M.D. [facility] Procedures ORS Cast Room Visit [address] [place] [address] Referral ID Status Reason Start Date Expiration Date Visits Requ ested Visits Authorized [id number] Closed 03/24/2021 03/24/2022 1 1 Reason for Visit Reason Comments Pain Appointment Request (Routine) - Closed Specialty Diagnoses / Procedures Referred By Contact Refer red To Contact Orthopedic Surgery Diagnoses Fracture Wrist Hand Closed Initial Referral ID Status Reason Start Date Expiration Date Visits Requ ested Visits Authorized [id number] Closed 03/16/2021 03/16/2022 1 1 Encounter Details Date Type Department Care Team Description 03/24/2021 Admin Visit Department of Dario Noel Dissocia tion Orthopedic Surgery in M.D. Scapholunate Left [place], [place] 200 [facility] (Primary Dx) [address] [place] [phone] Social History Tobacco Use Types Packs/Day Years [...] you attend jainism or Patient refused 2021 voodoo services? Do [...] 70/60 degrees on the contr alateral side. ??Molding Process Technician strength of 10 kg compared to 23 [...] cast was applied by the kevin garcia air technician - The patient is nonweightbearing bearin [...]
--- OUTSIDE RECORDS SUMMARY | 2022-09-14 12:05 | XMS_ITS | Encounter Summary ---
:1965 Author Organization [facility] Address [address] [place] [address] Care Team Providers Name Role Phone Unavailable Primary Care Provider Unavailable Reason for Visit Outpatient (Routine) - Closed Specialty Diagnoses / Procedures Referred By Contact Refer red To Contact Neurological Surgery Jeannette [facility] [facility] [place] M.D. [address] [place] [phone] Referral ID Status Reason Start Date Expiration Date Visits Requ ested Visits Authorized [id number] Closed 02/17/2021 02/17/2022 1 1 Encounter Details Date Type Department Care Team Description 03/12/2021 Office Visit Department of Gonzalez Benjamin Neurologic Surgery in Lilian Jang, Cinthya castorena ([facility]) (Primary [place], [place] Ph.D. Dx) [address] [place] [address] [place] [phone] Social History Tobacco Use Types Packs/Day [...] you attend taoism or Patient refused 2021 cheondoism services? Do you belong to any clubs or No 05/17/2022 organizations such as taoism groups, [employer], [employer] or athletic groups, or school groups? How [...]
--- OUTSIDE RECORDS SUMMARY | 2022-09-14 12:05 | XMS_ITS | Encounter Summary ---
:1965 Author Organization [facility] Address [address] [place] [address] Care Team Providers Name Role Phone Unavailable Primary Care Provider Unavailable Reason for Visit Reason Comments Pre-visit Intake Encounter Details Date Type Department Care Team Description 04/15/2021 Clinical Communication Department of Robert Diehl e-visit Intake Neurology in Lilian Celaya Shelby, [facility] [place], [place] [address] [place] [phone] [place], [place] [phone] (Work) [phone] Social History Tobacco Use Types Packs/Day Years [...] you attend nondenominational or Patient refused 2021 quaker services? Do [...]
--- OUTSIDE RECORDS SUMMARY | 2022-09-14 12:05 | XMS_ITS | Encounter Summary ---
:1965 Author Organization [facility] Address [address] [place] [address] Care Team Providers Name Role Phone Unavailable Primary Care Provider Unavailable Reason for Visit Reason Comments [facility] Hospital Follow-up Encounter Details Date Type Department Care Team Description 02/19/2021 Clinical Communication Department of [facility], Post Hospital Neurology in Monica Alvarado R.N. Follow-up [place], [place] [address] [place] [address] Social History Tobacco Use Types [...] you attend uatsdin or Patient refused 2021 moravian services? Do [...] reports she has not yet picked up [id number] ASA daily and 80 mg Atorvastatin at [...]
--- OUTSIDE RECORDS SUMMARY | 2022-09-14 12:05 | XMS_ITS | Encounter Summary ---
:1965 Author Organization [facility] Address [address] [place] [address] Care Team Providers Name Role Phone Unavailable Primary Care Provider Unavailable Reason for Referral Outpatient (Routine) - Closed Specialty Diagnoses / Procedures Referred By Contact Refer red To Contact Orthopedic Surgery Michael Noble [facility] , P.A.-C. [address] [place] [phone] Referral ID Status Reason Start Date Expiration Date Visits Requ ested Visits Authorized [id number] Closed 05/04/2021 05/04/2022 1 1 Scheduling Instructions Pulos Encounter Details Date Type Department Care Team Description 05/04/2021 Orders Only Department of Orthopedic Mirna Noble Surgery in [facility] , P.A.- C. [address] [place] [phone] (Wo rk) Social History Tobacco Use Types [...] you attend confucianist or Patient refused 2021 rastafarian services? Do [...]
--- OUTSIDE RECORDS SUMMARY | 2022-09-14 12:05 | XMS_ITS | Encounter Summary ---
:1965 Author Organization [facility] Address [address] [place] [address] Care Team Providers Name Role Phone Unavailable Primary Care Provider Unavailable Reason for Referral Outpatient (Routine) - Closed Specialty Diagnoses / Procedures Referred By Contact Refer red To Contact Diagnoses Dissociation Scapholunate Left Michael Downs M.D. [facility] Procedures ORS Cast Room Visit [address] [place] [phone] Referral ID Status Reason Start Date Expiration Date Visits Requ ested Visits Authorized [id number] Closed 05/08/2021 05/08/2022 1 1 Outpatient (Routine) - Closed Specialty Diagnoses / Procedures Referred By Contact Refer red To Contact Diagnoses Dissociation Scapholunate Left Michael Downs M.D. [facility] Procedures ORS Cast Room Visit [address] [place] [phone] Referral ID Status Reason Start Date Expiration Date Visits Requ ested Visits Authorized [id number] Closed 05/08/2021 05/08/2022 1 1 Reason for Visit Reason Onset Date Comments Left Without Being Seen 07/17/2021 Outpatient (Routine) - Closed Specialty Diagnoses / Procedures Referred By Contact Refer red To Contact [facility]opedic [facility] [address] [place] [phone] Referral ID Status Reason Start Date Expiration Date Visits Requ ested Visits Authorized [id number] Closed 05/04/2021 05/04/2022 1 1 Encounter Details Date Type Department Care Team Description 05/08/2021 Office Visit Department of Pullazaro, Dario Alejo, Dissocia tion Scapholunate Left (Primary Dx); Orthopedic Surgery in M.D. Procedure And Treatment Not Carried Out Due To Patient Leaving Prior To Being Seen By Health Care Provider [place], [place] 200 [address] [facility] 200 [place] [phone] Social History Tobacco Use Types Packs/Day Years [...]
--- OUTSIDE RECORDS SUMMARY | 2022-09-14 12:05 | XMS_ITS | Encounter Summary ---
:1965 Author Organization [facility] Address [address] [place] [address] Care Team Providers Name Role Phone Unavailable Primary Care Provider Unavailable Reason for Referral Outpatient (Routine) - Closed Specialty Diagnoses / Procedures Referred By Contact Refer red To Contact Diagnoses Dissociation Scapholunate Left Michael Downs M.D. [facility] Procedures ORS Cast Room Visit [address] [place] [phone] Referral ID Status Reason Start Date Expiration Date Visits Requ ested Visits Authorized [id number] Closed 03/24/2021 03/24/2022 1 1 Reason for Visit Reason Comments Follow-up Outpatient (Routine) - Closed Specialty Diagnoses / Procedures Referred By Contact Refer red To Contact Diagnoses Dissociation Scapholunate Left Michael Downs M.D. [facility] Procedures ORS Cast Room Visit [address] [place] [phone] Referral ID Status Reason Start Date Expiration Date Visits Requ ested Visits Authorized [id number] Closed 03/24/2021 03/24/2022 1 1 Encounter Details Date Type Department Care Team Description 03/24/2021 Hospital Encounter Department of Paul Downs M.D. [address] [place] [phone] Dissociation Orthopedic Surgery Dario Noel M.D. [address] [place] [phone] Scapholunate Left in [place], [place] [address] [place] [address] Social History Tobacco Use Types Packs/Day Years [...] you attend protestant or Patient refused 2021 pentecostal services? Do [...] with 70/60 degrees on the contralateral side. Operations Developer strength of 10 kg compared to 23 [...] short-arm cast was applied by the castroom porcelain technician - The patient is nonweightbearing bearing [...] 70/60 degrees on the contr alateral side. ??Operations Developer strength of 10 kg compared to 23 [...] clenched fist view was obtained of bilat [employer] hands, but unfortunately is difficult to assess [...] A short-arm cast was applied by the tx stroom porcelain technician - The patient is nonweightbearing bearin [...]
--- OUTSIDE RECORDS SUMMARY | 2022-09-14 12:05 | XMS_ITS | Encounter Summary ---
:1965 Author Organization [facility] Address [address] [place] [address] Care Team Providers Name Role Phone Unavailable Primary Care Provider Unavailable Reason for Visit Reason Comments Pre-visit Intake Encounter Details Date Type Department Care Team Description 03/11/2021 Clinical Communication Department of Sourav Pre- visit Intake Neurologic Surgery Lilian Jang, in [place], Ph.D. [place] [address] [place] [phone] [phone] Social History Tobacco Use Types Packs/Day Years [...]
--- OUTSIDE RECORDS SUMMARY | 2022-09-14 12:05 | XMS_ITS | Encounter Summary ---
:1965 Author Organization [facility] Address [address] [place] [address] Care Team Providers Name Role Phone Unavailable Primary Care Provider Unavailable Reason for Visit Reason Comments Pre-scheduling Questionnaire Hand Pre-Scheduling Qu estionnaire Encounter Details Date Type Department Care Team Description 03/16/2021 Clinical Department of Prescheduling, Pre-scheduli ng Communication Orthopedic Surgery Provider Question elizabeth ( in [place], Hand Pre-Sched uling [place] Questionnaire) [address] [place] [phone] Social History Tobacco Use Types Packs/Day Years [...] Minerva Reyes - 03/16/2021 3:34 PM CDT [facility] Hand Pre-Scheduling Questionnaire documented in this encounter Plan of Treatment Not on filedocumented as of this encounter Visit Diagnoses Not on filedocumented in this encounter Additional Health Concerns Assessment Noted Time PHQ-9 Depression Total Score: 16 02/11/2021 12:00 AM C DT documented as of this encounter
--- OUTSIDE RECORDS SUMMARY | 2022-09-14 12:05 | XMS_ITS | Encounter Summary ---
:1965 Author Organization [facility] Address [address] [place] [address] Care Team Providers Name Role Phone Unavailable Primary Care Provider Unavailable Reason for Visit Reason Comments Nicotine Dependence Encounter Details Date Type Department Care Team Description 03/10/2021 Clinical Communication Department of [facility], Carolyn Mccarthy cotine Dependence Nicotine M.S., Dependence, C.T.T.S., [facility]C. in [address] [place] [phone] [place], [place] [phone] (Work) [phone] Social History Tobacco Use Types Packs/Day Years [...] you attend mosque or Patient refused 2021 islam services? Do [...]
--- OUTSIDE RECORDS SUMMARY | 2022-09-14 12:05 | XMS_ITS | Encounter Summary ---
:1965 Author Organization [facility] Address [address] [place] [address] Care Team Providers Name Role Phone Unavailable Primary Care Provider Unavailable Reason for Referral Outpatient (Routine) - Closed Specialty Diagnoses / Procedures Referred By Contact Refer red To Contact Diagnoses Pain Wrist Left Michael Noble Jr., [facility] Procedures PM Device interrogation (clinic) P.A.-C. [address] [place] [phone] Referral ID Status Reason Start Date Expiration Date Visits Requ ested Visits Authorized [id number] Closed 03/17/2021 03/17/2022 1 1 RI/CAT/PET Scan (Routine) - Closed Specialty Diagnoses / Procedures Referred By Contact Refer red To Contact Radiology Diagnoses Pain Wrist Left Michael Noble Jr., [facility] Procedures MR Wrist Left without IV Contrast P.A.-C. 200 [place], [place] [phone] Referral ID Status Reason Start Date Expiration Date Visits Requ ested Visits Authorized [id number] Closed 03/17/2021 03/17/2022 1 1 Encounter Details Date Type Department Care Team Description 03/17/2021 Orders Only Department of Michael Noble Wris t Left Orthopedic Surgery in Tona Patel Jr. (Primary Dx) [place], [place] [address] [place] [phone] Social History Tobacco Use Types Packs/Day Years [...] you attend islam or Patient refused 2021 jain services? Do [...]
--- OUTSIDE RECORDS SUMMARY | 2022-09-14 12:06 | XMS_ITS | Encounter Summary ---
:1965 Author Organization [facility] Address [address] [place] [address] Care Team Providers Name Role Phone Unavailable Primary Care Provider Unavailable Encounter Details Date Type Department Care Team Description 02/03/2021 Orders Only Department of Neurology Leonides Kumar S troke ([facility]) (Primary in [facility] Lilian Dx) [address] [facility] 200 [place] [phone] Social History Tobacco Use Types Packs/Day Years [...]
--- OUTSIDE RECORDS SUMMARY | 2022-09-14 12:06 | XMS_ITS | Encounter Summary ---
:1965 Author Organization [facility] Address [address] [place] [address] Care Team Providers Name Role Phone Unavailable Primary Care Provider Unavailable Encounter Details Date Type Department Care Team Description 02/11/2021 Ancillary Procedure Department of Radiology Ridge Vega in [facility] raúl Quintana 200 [facility] 200 [place] [phone] (Wo rk) Social History Tobacco Use Types [...] you attend latter-day or Patient refused 2021 restorationism services? Do [...] bilateral thalami (series 3 image 36), bilateral ATHLETIC TURF WORKER 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 bilateral thalami (series 3 image 36), bilateral ATHLETIC TURF WORKER 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 bilateral thalami (series 3 image 36), bilateral ATHLETIC TURF WORKER 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 bilateral thalami (series 3 image 36), bilateral ATHLETIC TURF WORKER 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 bilateral thalami (series 3 image 36), bilateral ATHLETIC TURF WORKER 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 bilateral thalami (series 3 image 36), bilateral ATHLETIC TURF WORKER 

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
--- OUTSIDE RECORDS SUMMARY | 2022-09-14 12:06 | XMS_ITS | Encounter Summary ---
:1965 Author Organization [facility] Address [address] [place] [address] Care Team Providers Name Role Phone Unavailable Primary Care Provider Unavailable Encounter Details Date Type Department Care Team Description 02/11/2021 Ancillary Procedure Department of Radiology Ridge Vega in [facility] raúl Quintana 200 [facility] 200 [place] [phone] (Wo rk) Social History Tobacco Use Types [...] you attend christianity or Patient refused 2021 orthodoxy services? Do [...] bilateral thalami (series 3 image 36), bilateral STREET LIGHT MECHANIC 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 bilateral thalami (series 3 image 36), bilateral STREET LIGHT MECHANIC 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 bilateral thalami (series 3 image 36), bilateral STREET LIGHT MECHANIC 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 bilateral thalami (series 3 image 36), bilateral STREET LIGHT MECHANIC 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 bilateral thalami (series 3 image 36), bilateral STREET LIGHT MECHANIC 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 bilateral thalami (series 3 image 36), bilateral STREET LIGHT MECHANIC 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
--- OUTSIDE RECORDS SUMMARY | 2022-09-14 12:06 | XMS_ITS | Encounter Summary ---
:1965 Author Organization [facility] Address [address] [place] [address] Care Team Providers Name Role Phone Unavailable Primary Care Provider Unavailable Encounter Details Date Type Department Care Team Description 02/11/2021 Ancillary Procedure Department of Radiology Ridge Vega in [facility] raúl Quintana 200 [facility] 200 [place] [phone] (Wo rk) Social History Tobacco Use Types [...] you attend judaism or Patient refused 2021 baptist services? Do [...] bilateral thalami (series 3 image 36), bilateral FIRE PROTECTION DESIGNER 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 bilateral thalami (series 3 image 36), bilateral FIRE PROTECTION DESIGNER 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 bilateral thalami (series 3 image 36), bilateral FIRE PROTECTION DESIGNER 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 bilateral thalami (series 3 image 36), bilateral FIRE PROTECTION DESIGNER 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 bilateral thalami (series 3 image 36), bilateral FIRE PROTECTION DESIGNER 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 bilateral thalami (series 3 image 36), bilateral FIRE PROTECTION DESIGNER 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
--- OUTSIDE RECORDS SUMMARY | 2022-09-14 12:06 | XMS_ITS | Encounter Summary ---
:1965 Author Organization [facility] Address [address] [place] [address] Care Team Providers Name Role Phone Unavailable Primary Care Provider Unavailable Encounter Details Date Type Department Care Team Description 02/05/2021 Orders Only Pharmacy Prior Auth RO Elsewhere, Pcp [phone] Social History Tobacco Use Types Packs/Day Years [...] you attend religion or Patient refused 2021 adventism services? Do [...]
--- OUTSIDE RECORDS SUMMARY | 2022-09-14 12:06 | XMS_ITS | Encounter Summary ---
:1965 Author Organization [facility] Address [address] [place] [address] Care Team Providers Name Role Phone Unavailable Primary Care Provider Unavailable Reason for Visit Reason Onset Date Comments saul med request 02/03/2021 Encounter Details Date Type Department Care Team Description 02/03/2021 Clinical Communication Department of [facility], trinidad Mccarthy med request Nicotine Dependence, M.S., C.T.T.S., [facility] in [address] [place] [address] [place], [place] [phone] (Work) [phone] Social History Tobacco Use Types Packs/Day Years [...] you attend mandaen or Patient refused 2021 bahai services? Do [...] 02/03/2021 10:16 AM CST Please send to [facility] in [facility] 21 mg patches with refills Nicotrol inhaler with refills Nicotine nasal spray with refills ATTENDANT documented in this encounter Plan of Treatment Not on filedocumented as of this encounter Visit Diagnoses Not on filedocumented in this encounter Additional Health Concerns Assessment Noted Time PHQ-9 Depression Total Score: 23 02/02/2021 11:[address] documented as of this encounter
--- OUTSIDE RECORDS SUMMARY | 2022-09-14 12:06 | XMS_ITS | Encounter Summary ---
:1965 Author Organization [facility] Address [address] [place] [address] Care Team Providers Name Role Phone Unavailable Primary Care Provider Unavailable Encounter Details Date Type Department Care Team Description 02/16/2021 Anesthesia Event Department of Radiology Liban Sunshine APRN, CAN FILLER, DNAP [address] [place] [phone] in [facility] Deep Velasquez M.D. [address] [place] [phone] [place] [phone] Anesthesia Record Procedure Summary Procedure Name Responsible Anesthesia Start Anesthesia Stop Anesthesiologist Time Time IR CEREBRAL Liban Sunshine APRN, 02/16/21 0825 02/16/21 1100 INTRACRANIAL ARTERY CAN FILLER, DNAP EMBOLIZATION Events Date Time Event Comment [...] h andoff to the receiving staff during [facility] ch we 1. Identified the patient [...] 1,000 units/mL injection 6,000 Units heparin standard 32630 Units/250 mL in 0.45 % Sodium C [...] you attend buddhism or Patient refused 2021 zoroastrianism services? Do you belong to any clubs or No 05/17/2022 organizations such as buddhism groups, unions, fraCava Grill or athletic groups, or school groups? How [...] Room / Location: Department of Radiology in [place], [place] Anesthesia Start: 0825 Anesthesia Stop: 1100 Procedure: IR CEREBRAL INTRACRANIAL [...] Dr. Castillo. Location: Department of Radiology in [place], [place] Pertinent components of the patient's history [...] with patient /legal guardian or through an metal cut off saw operator. Risks/Benefits/Alternatives of Blood transfusion discussed with [...]
--- OUTSIDE RECORDS SUMMARY | 2022-09-14 12:07 | XMS_ITS | Encounter Summary ---
:1965 Author Organization [facility] Address [address] [place] [address] Care Team Providers Name Role Phone Unavailable Primary Care Provider Unavailable Reason for Visit Reason Comments Initiate warfarin anticoagulation. Encounter Details Date Type Department Care Team Description 01/01/2021 Clinical Communication Department of Renny Mahoney warfarin Neurology in [place] anticoagulation. [address] [place] [phone] [place], [place] [phone] (Work) [phone] Social History Tobacco Use Types Packs/Day Years [...] you attend islam or Patient refused 2021 baptism services? Do [...] PM CST RADHA Thompson, calls in from [facility] with INR results = 3.9. Please call her back at [phone] BLE PROCESSOR Telephone Encounter - Renny Mahoney R.N. - 01/05/2021 1:56 PM CST Mackenzie talked to her, she needs to go to the lab today. BLE PROCESSOR Telephone Encounter - Allyssa Amaya - 01/05/2021 11:14 AM CST Patient calls in regarding this. She is wanting this set up now so a nurse can come into her home and do this. She I believed mentions that a nurse comes into her home now. She would like a call to discuss. BLE PROCESSOR Telephone Encounter - Robert Diehl M.D. - 01/01/2021 4:46 PM CST Absolutely and thank you very much for coordinating this BLE PROCESSOR Addendum Note - Renny Mahoney R.N. - 01/01/2021 1:03 PM PAYABLE PROCESSOR Addended by: RENNY MAHONEY on: 01/01/2021 01:03 PM Modules accepted: Orders BLE PROCESSOR Telephone Encounter - Renny Mahoney R.N. - 01/01/2021 12:45 PM CST I spoke to the patient by telephone today to discuss reinitiating warfarin. The patient referred by Dr. Argenis Diehl ([id number]). The patient's target INR is 2.0-3.0. 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 The anticipated duration of warfarin is chcf. As per Dr. Diehl, the patient is to be instructed to discontinue the 325 mg aspirin once the target INR is reached. The patient shares that she is well aware of the risks/benefits and process of taking warfarin with regular INR monitoring. She declined the need for additional education by phone regarding anticoagulation. She would like to have her INRs drawn at [facility] with results faxed to us [facility]. I spoke with her local primary care physician nurse about this as well. Once Dr. Diehl obtains imaging in about 3 months, we may consider transitioning her anticoagulation care to her local [facility]. The patient will take 5 mg warfarin nightly starting tonight 01/01/21, then have an INR drawn 01/05/21 at [facility] with results faxed to us. A prescription for warfarin 5 mg #30, take as directed, may refill X 1 was eprescribed to [facility]. The patient reported an adequate understanding of her plan of care and expressed agreement with thisplan. RECOMMENDED LEVEL OF CARE. The patient/caller is willing and able to follow the nurse's recommendation. RESPONSE TO ADVICE GIVEN. Patient/caller able to teach back. REFERENCES UTILIZED. Nursing clinical judgment utilized. Other interventions or information: Provider advice. TYPE OF PHONE CALL. Medical information, care coordination. . BLE PROCESSOR Addendum Note - Renny Mahoney R.N. - 01/01/2021 9:43 AM PAYABLE PROCESSOR Addended by: RENNY MAHONEY on: 01/01/2021 09:43 AM Modules accepted: Orders BLE PROCESSOR Telephone Encounter - Renny Mahoney R.N. - 01/01/2021 9:32 AM CST I have spoken with the pharmacist at [facility] in [place]. He notes that in 2018 when thepatient previously was treated with warfarin, she was taking 5 mg nightly for a period of time. Eventually some nights she was taking 7.5 mg nightly. The pharmacist reviewed potential medication interactions with the patient's current medication list. No serious interactions anticipated. As per Dr. Yeboah ([phone]), we will initiate 5 mg nightly. She will continue aspirin until therapeutic INR is reached. BLE PROCESSOR Telephone Encounter - Renny Mahoney R.N. - 01/01/2021 8:47 AM CST The patient has been experiencing episodes of vertigo, gait instability, with a fall, she was seen in the ED of [facility] on 12/22/20. Head CT was performed and sent to [facility] for Dr. Diehl's review. He noted possible [...] the patient's primary care team at the [facility]. I have discussed this with the patient who reports an ad equate understanding and agreement with this plan. RECOMMENDED LEVEL OF CARE. The patient/caller is willing and able to follow the nurse's recommendation. RESPONSE TO ADVICE GIVEN. Patient/caller able to teach back. REFERENCES UTILIZED. Nursing clinical judgment utilized. Other interventions or information: Provider advice. TYPE OF PHONE CALL. Care coordination. BLE PROCESSOR Telephone Encounter - Renny Mahoney R.N. - 01/01/2021 8:46 AM CST ----- Message from Robert Diehl M.D. sent at 12/31/2020 5:17 PM PAYABLE PROCESSOR ----- I called and discussed the results [...] by: Robert Diehl M.D. 12/31/20 5:16 PM PAYABLE PROCESSOR Stroke Cerebrovascular Accident Personal History Plan: CT Head without IV Contrast, CT Head without IV Contrast Ataxia Plan: CT Head Neck Angiogram with IV Contrast, CT Head Neck Angiogram with IV Contrast BLE PROCESSOR documented in this encounter Plan of Treatment Scheduled Orders Name Type Priority Associated Diagnoses Order S chedule Prothrombin Time (PT) Lab Routine Lottery Office Manager Anticoagu lant 50 Occurrences starting Treatment 01/01/2021 unti l 01/01/2024 documented as of this encounter Visit Diagnoses Diagnosis Lottery Office Manager (Current) Anticoagulant Treatm ent - Primary documented in this encounter Additional Health Concerns Assessment Noted Time PHQ-9 Depression Total Score: 5 04/05/2019 8:00 AM CDT documented as of this encounter
--- OUTSIDE RECORDS SUMMARY | 2022-09-14 12:07 | XMS_ITS | Encounter Summary ---
:1965 Author Organization [facility] Address [address] [place] [address] Care Team Providers Name Role Phone Unavailable Primary Care Provider Unavailable Encounter Details Date Type Department Care Team Description 01/16/2021 Anticoagulation Visit Department of Elvira Villalta ([facility]) (Primary Dx); Neurology in [place] [place] Anticoagulant Treatment [address] [place] [address] [place], [place] [phone] (Work) [phone] Social History Tobacco Use Types Packs/Day Years [...] you attend jewish or Patient refused 2021 anglican services? Do [...] Target INR 2.0-3.[address] Argenis Diehl (1-2014). The patient was scheduled for an INR recheck on 01/19/21 but we received a message that she had it drawn today, 01/16/21, by [facility] Nurse. I spoke with RADHA Roman [facility] and she relays that the home POC INR today is 3.9. I discussed this with Dr. Argenis Diehl ([phone]) who advises that the patient follow a [...] her primary care provider, Dr. Neri Blackwell, [facility], [place], [place]. I have put in a call for Dr. Blackwell's care team to call us back. Will schedule an INR recheck for 01/20/21. I will fax a standing INR order to RADHA Roman, [facility], phone # [phone], fax #[phone]. She will fax results back to us. [...] OF PHONE CALL. Test results, symptom assessment. MAN CLERK documented in this encounter Plan of Treatment Not on filedocumented as of this encounter Procedures Procedure Name Priority Date/Time Associated Comments Diagnosis PROTHROMBIN TIME Routine 01/16/2021 2:10 PM Resul ts for this (PT), P PULLMAN CLERK procedure are i n the results section. documented in this encounter Results Prothrombin Time (PT) (01/16/2021 2:10 PM PULLMAN CLERK) P athologist Signature EXT INR 3.90 OTHER (SPECIFY IN SKIRT CLIPPER) Specimen (Source) Anatomical Collection Method Collection Time Re ceived Time Location / / Volume Laterality Blood (Blood, 01/16/2021 2:10 PM Venous) PULLMAN CLERK Resulting Agency Comment [facility] Historical Provider LAB BLOOD ADD-ON Performing Organization Address City/State/ZIP Code Phon e Number OTHER (SPECIFY IN SKIRT CLIPPER) OTHER (SPECIFY IN SKIRT CLIPPER) N/A documented in this encounter Visit Diagnoses Diagnosis Stroke (HCC) - Primary Jail (Current) Anticoagulant Treatm ent documented in this encounter Additional Health Concerns Assessment Noted Time PHQ-9 Depression Total Score: 5 04/05/2019 8:00 AM CDT documented as of this encounter
--- OUTSIDE RECORDS SUMMARY | 2022-09-14 12:07 | XMS_ITS | Encounter Summary ---
:1965 Author Organization [facility] Address [address] [place] [address] Care Team Providers Name Role Phone Unavailable Primary Care Provider Unavailable Encounter Details Date Type Department Care Team Description 01/07/2021 Anticoagulation Visit Department of Neurology Zuly Alex in [facility] raúl SkaggsNBritton 1216 [facility] [address] [place] [phone] Social History Tobacco Use Types Packs/Day Years [...] attend jehovah's witness or Patient refused 2021 episcopalian services? Do [...] is 2.28. Discussed with Dr. Ashley Castrejon ([phone]) who advises that the patient take 5 [...] OF PHONE CALL. Test results, symptom assessment. TURNER documented in this encounter Plan of Treatment Not on filedocumented as of this encounter Procedures Procedure Name Priority Date/Time Associated Diagnosis Comme nts PROTHROMBIN TIME (PT), Routine 01/07/2021 Resul ts for this P procedure are i n the results section . documented in this encounter Results Prothrombin Time (PT) (01/07/2021) P athologist Signature EXT INR 2.28 OTHER (SPECIFY IN DESIGN ASSISTANT) Specimen (Source) Anatomical Location Collection Method / Collectio n Time Received Time / Laterality Volume Blood (Blood, 01/07/2021 Venous) Narrative This result has an attachment that is no t available. Historical Provider LAB BLOOD ADD-ON Performing Organization Address City/State/ZIP Code Phon e Number OTHER (SPECIFY IN DESIGN ASSISTANT) OTHER (SPECIFY IN DESIGN ASSISTANT) N/A documented in this encounter Visit Diagnoses Not on filedocumented in this encounter Additional Health Concerns Assessment Noted Time PHQ-9 Depression Total Score: 5 04/05/2019 8:00 AM CDT documented as of this encounter
--- OUTSIDE RECORDS SUMMARY | 2022-09-14 12:07 | XMS_ITS | Encounter Summary ---
:1965 Author Organization [facility] Address [address] [place] [address] Care Team Providers Name Role Phone Unavailable Primary Care Provider Unavailable Reason for Visit Reason Comments Follow-up [facility] Patient Encounter Details Date Type Department Care Team Description 12/29/2020 Clinical [facility] jimmy Celaya M.D. Patient) [place], [facility] [address] [place], [place] [address] [place] [address] [place], [place] [phone] (Work) [phone] Social History Tobacco Use Types Packs/Day Years [...] you attend christianity or Patient refused 2021 taoism services? Do [...] her know PCP needs to prescribe meclizine. OLATE MAKER Telephone Encounter - Allyssa Amaya - 12/29/2020 [...] ambulance for; one of which lasted over zgb-ohd-c-half days. She is having headaches, etc. 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
--- OUTSIDE RECORDS SUMMARY | 2022-09-14 12:07 | XMS_ITS | Encounter Summary ---
:1965 Author Organization [facility] Address [address] [place] [address] Care Team Providers Name Role Phone Unavailable Primary Care Provider Unavailable Reason for Visit Reason Comments Tahmina/Fazal Encounter Details Date Type Department Care Team Description 01/26/2021 Clinical Communication Department of Robert Diehl W8B/[facility] Neu[facility] in .. [place], [place] 200 [facility] 200 [place] [address] [phone] Social History Tobacco Use Types Packs/Day Years [...] 01/26/2021 5:19 PM CST Great thank you ADVISOR Addendum Note - Robert Diehl M.D. - 01/26/2021 2:[address] Addended by: ROBERT DIEHL on: 01/26/2021 02:50 PM Modules accepted: Orders ADVISOR Telephone Encounter - Robert Diehl M.D. - 01/26/2021 2:49 PM CST Believe MRI is ordered now. ADVISOR Telephone Encounter - Robert Diehl M.D. - 01/26/2021 2:47 PM CST I am sorry to learn of the patient's additional symptoms Unfortunately we cannot react as quickly as the emergency department which was recommended locally I will order a brain MRI and in-person or video visit to follow-up. Thank you ADVISOR Telephone Encounter - Allyssa Amaya - 01/26/2021 12:56 PM CST Patient calls checking the status of this request. Thank you. ADVISOR documented in this encounter Plan of Treatment Not on filedocumented as of this encounter Visit Diagnoses Diagnosis Stroke Cerebrovascular Accident Personal History - Primary documented in this encounter Additional Health Concerns Assessment Noted Time PHQ-9 Depression Total Score: 5 04/05/2019 8:00 AM CDT documented as of this encounter
--- OUTSIDE RECORDS SUMMARY | 2022-09-14 12:07 | XMS_ITS | Encounter Summary ---
:1965 Author Organization [facility] Address [address] [place] [address] Care Team Providers Name Role Phone Unavailable Primary Care Provider Unavailable Encounter Details Date Type Department Care Team Description 12/31/2020 Orders Only Department of Robert Diehl Stroke Cereb rovascular Accident Personal History (Primary Dx); Neurology in [place], M[place]itton[place]. Thrombosis Arterial (HCC) [place], [place] [address] [facility] 200 [place] [phone] Social History Tobacco Use Types Packs/Day Years [...] you attend samaritan or Patient refused 2021 hoahaoism services? Do [...]
--- OUTSIDE RECORDS SUMMARY | 2022-09-14 12:07 | XMS_ITS | Encounter Summary ---
:1965 Author Organization [facility] Address 200 [place] [address] Care Team Providers Name Role Phone Unavailable Primary Care Provider Unavailable Reason for Referral MRI/CAT/PET Scan (Routine) - Closed Specialty Diagnoses / Procedures Referred By Contact Refer red To Contact Radiology Diagnoses Robert Akhtar M.D. [facility] Procedures CT Head Neck Angiogram with IV Contrast 200 [place] [address] Referral ID Status Reason Start Date Expiration Date Visits Requ ested Visits Authorized [id number] Closed 12/30/2020 12/30/2021 1 1 LATE CUTTER MRI/CAT/PET Scan (Routine) - Closed Specialty Diagnoses / Procedures Referred By Contact Refer red To Contact Radiology Diagnoses Stroke Cerebrovascular Accident Personal History Robert Diehl M.D. [facility] Procedures CT Head without IV Contrast [address] [place] [address] Referral ID Status Reason Start Date Expiration Date Visits Requ ested Visits Authorized [id number] Closed 12/30/2020 12/30/2021 1 1 LATE CUTTER Reason for Visit MRI/CAT/PET Scan (Routine) - Closed Specialty Diagnoses / Procedures Referred By Contact Refer red To Contact Radiology Diagnoses Ataxia Robert Diehl M.D. [facility] Procedures CT Head Neck Angiogram with IV Contrast [address] [place] [address] Referral ID Status Reason Start Date Expiration Date Visits Requ ested Visits Authorized [id number] Closed 12/30/2020 12/30/2021 1 1 Encounter Details Date Type Department Care Team Description 12/31/2020 Hospital Encounter Department of Robert Diehl Stroke Cerebrovascular Accident Personal History; Radiology, Severiano Celaya M.D. [facility] Building, in [address] [place] [phone] [place] [address] [place], [place] (Work) [phone] Social History Tobacco Use Types Packs/Day Years [...] you attend confucianism or Patient refused 2021 gnosticist services? Do [...] potassium chloride Take 10 mEq by 0 03 /06/2021 (KLOR-CON M) 10 mEq ER mouth 2 [...] Robert Diehl M.D. - 12/31/2020 5:17 PM TEMPLATE CUTTER I called and discussed the results with [...] by: Robert Diehl M.D. 12/31/20 5:16 PM TEMPLATE CUTTER Stroke Cerebrovascular Accident Personal History Plan: CT Head without IV Contrast, CT Head without IV Contrast Ataxia Plan: CT Head Neck Angiogram with IV Contrast, CT Head Neck Angiogram with IV Contrast LATE CUTTER documented in this encounter Plan of Treatment Not on filedocumented as of this encounter Procedures Procedure Name Priority Date/Time Associated Diagnosis Comme nts CT HEAD WITHOUT RAD - Routine 12/31/2020 3:34 Stroke Results for IV CONTRAST (most inpatients PM TEMPLATE CUTTER Cerebrovascular this pro cedure and all Accident Personal are in the outpatients) History results section. CT HEAD NECK RAD - Routine 12/31/2020 3:34 Ataxia Results for ANGIOGRAM WITH (most inpatients PM TEMPLATE CUTTER this proc edure IV CONTRAST and all are in the outpatients) results section. documented in this encounter Results CT Head Neck Angiogram with IV Contrast (12/31/2020 3:34 PM TEMPLATE CUTTER) Anatomical Region Laterality Modality Head and Neck, Neuroradiology RST LOS, N/A C omputed Tomography, Computed Neuroradiology ARZ LOS, Neuroradiology T omography FLA [facility] Specimen (Source) Anatomical Collection Method Collection Time Re ceived Time Location / / Volume Laterality 12/31/2020 3:49 PM TEMPLATE CUTTER Impressions 12/31/2020 4:54 PM TEMPLATE CUTTER 1. Evolving right cerebellar infarct with decreased edema since CT of 12/22/2020. 2. Mildly expansile thrombus in the [facility] t vertebral artery V3 segment has slightly [...] oid ICA aneurysms. Narrative 12/31/2020 4:54 PM TEMPLATE CUTTER EXAM: CT HEAD WITHOUT IV CONTRAST, CT [...] discussed with ordering physici Dr. Fazal abbasi ([id number]) at 4:54 PM on 12/31/2020. Procedure Note [...] discussed with ordering physici Dr. Fazal abbasi ([id number]) at 4:54 PM on 12/31/2020. IMPRESSION: 1. [...] Head without IV Contrast (12/31/2020 3:34 PM TEMPLATE CUTTER) Anatomical Region Laterality Modality Head, Neuroradiology RST LOS, N/A Computed T omography, Computed Neuroradiology ARZ [facility], Neuroradiology T omography FLA [facility] Specimen (Source) Anatomical Collection Method Collection Time Re ceived Time Location / / Volume Laterality 12/31/2020 3:49 PM TEMPLATE CUTTER Impressions 12/31/2020 4:54 PM TEMPLATE CUTTER 1. Evolving right cerebellar infarct with decreased [...] oid ICA aneurysms. Narrative 12/31/2020 4:54 PM TEMPLATE CUTTER EXAM: CT HEAD WITHOUT IV CONTRAST, CT [...] discussed with ordering physici Dr. Fazal abbasi ([id number]) at 4:54 PM on 12/31/2020. Procedure Note [...] discussed with ordering physici Dr. Fazal abbasi ([id number]) at 4:54 PM on 12/31/2020. IMPRESSION: 1. [...] mg iodine/mL solution Given 12/31/2020 3:34 PM TEMPLATE CUTTER 1 00 mL 1-200 mL (OMNIPAQUE) 1-200 mL, intravenous, Once in imaging, contrast, Starting on Tue12/31/20 at 1411, For 1 dose, Imaging Protocol Orders, Dose per Radiant Medication Guidelines sodium chloride (PF) 0.9 % injection 1-1 00 mL Given 12/31/2020 3:34 PM TEMPLATE CUTTER 35 mL 1-100 mL, intravenous, Once, On Tue12/31/20 at 1415, For 1 dose, Imaging Protocol Orders documented in this encounter Additional Health Concerns Assessment Noted Time PHQ-9 Depression Total Score: 5 04/05/2019 8:00 AM CDT documented as of this encounter
--- OUTSIDE RECORDS SUMMARY | 2022-09-14 12:07 | XMS_ITS | Encounter Summary ---
:1965 Author Organization [facility] Address [address] [place] [address] Care Team Providers Name Role Phone Unavailable Primary Care Provider Unavailable Encounter Details Date Type Department Care Team Description 01/12/2021 Anticoagulation Visit Department of Neurology Zuly Alex in [facility] raúl SkaggsNBritton [address] [facility] [address] [place] [phone] Social History Tobacco Use Types Packs/Day Years [...] you attend muslim or Patient refused 2021 sikh services? Do [...] Target INR 2.0-3.[address] Argenis Diehl ([id number]). The patient was scheduled for an INR recheck on 01/09/21, however did not have an INR draw until late that afternoon. The results did not become available until after clinic hours. Patient's INR on 01/09/21 was 2.[address]. Discuss[address] with Dr. Argenis Diehl ([id number]) who advises that the patient follow a [...] OF PHONE CALL. Test results, symptom assessment. RVISOR BOILER REPAIR documented in this encounter Plan of Treatment Not on filedocumented as of this encounter Procedures Procedure Name Priority Date/Time Associated Diagnosis Comme nts PROTHROMBIN TIME (PT), Routine 01/09/2021 Resul ts for this P procedure are i n the results section . documented in this encounter Results Prothrombin Time (PT) (01/09/2021) P athologist Signature EXT INR 2.40 OTHER (SPECIFY IN PELLET MILL OPERATOR) Specimen (Source) Anatomical Location Collection Method / Collectio n Time Received Time / Laterality Volume Blood (Blood, 01/09/2021 Venous) Narrative This result has an attachment that is no t available. Historical Provider LAB BLOOD ADD-ON Performing Organization Address City/State/ZIP Code Phon e Number OTHER (SPECIFY IN PELLET MILL OPERATOR) OTHER (SPECIFY IN PELLET MILL OPERATOR) N/A documented in this encounter Visit Diagnoses Not on filedocumented in this encounter Additional Health Concerns Assessment Noted Time PHQ-9 Depression Total Score: 5 04/05/2019 8:00 AM CDT documented as of this encounter
--- OUTSIDE RECORDS SUMMARY | 2022-09-14 12:07 | XMS_ITS | Encounter Summary ---
:1965 Author Organization [facility] Address [address] [place] [address] Care Team Providers Name Role Phone Unavailable Primary Care Provider Unavailable Reason for Visit Outpatient (Routine) - Closed Specialty Diagnoses / Procedures Referred By Contact Refer red To Contact Video Medicine Diagnoses Stroke Cerebrovascular Accident Personal History Robert Diehl [place] M.D. [address] [place] [address] Referral ID Status Reason Start Date Expiration Date Visits Requ ested Visits Authorized [id number] Closed 12/30/2020 12/30/2021 1 1 Encounter Details Date Type Department Care Team Description 02/02/2021 Virtual Visit Department of Robert Diehl Stroke Cere brovascular Neurology jimmy Celaya M.D. Accident Personal [place], [place] 200 [facility] History 200 [place] [phone] Social History Tobacco Use Types Packs/Day Years [...] 05/17/2022 organizations such as buddhism groups, unions, [employer] / [employer] or athletic groups, or school groups? How [...] a.m. Outpatient consultation. Highly appreciative of the [facility] Stroke Service cares. No charge. Electronically signed by: Robert Diehl M.D. 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
--- OUTSIDE RECORDS SUMMARY | 2022-09-14 12:07 | XMS_ITS | Encounter Summary ---
:1965 Author Organization [facility] Address [address] [place] [address] Care Team Providers Name Role Phone Unavailable Primary Care Provider Unavailable Encounter Details Date Type Department Care Team Description 01/20/2021 Clinical Communication Department of Elvira Villalta, Neurology in [place], [place] [address] [place] [address] [address] [place] [phone] Social History Tobacco Use Types Packs/Day Years [...] you attend cheondoism or Patient refused 2021 quaker services? Do [...]
--- OUTSIDE RECORDS SUMMARY | 2022-09-14 12:07 | XMS_ITS | Encounter Summary ---
:1965 Author Organization [facility] Address [address] [place] [address] Care Team Providers Name Role Phone Unavailable Primary Care Provider Unavailable Reason for Referral MRI/CAT/PET Scan (Routine) - Closed Specialty Diagnoses / Procedures Referred By Contact Refer red To Contact Radiology Diagnoses Robert Akhtar M.D. [facility] Procedures CT Head Neck Angiogram with IV Contrast [address] [place], [place] [address] Referral ID Status Reason Start Date Expiration Date Visits Requ ested Visits Authorized [id number] Closed 12/31/2020 12/31/2021 1 1 LE GLUER Reason for Visit MRI/CAT/PET Scan (Routine) - Closed Specialty Diagnoses / Procedures Referred By Contact Refer red To Contact Radiology Diagnoses Ataxia Robert Diehl M.D. [facility] Procedures CT Head Neck Angiogram with IV Contrast [address] [place], [place] [phone] Referral ID Status Reason Start Date Expiration Date Visits Requ ested Visits Authorized [id number] Closed 12/31/2020 12/31/2021 1 1 Encounter Details Date Type Department Care Team Description 01/30/2021 Hospital Encounter Department of Radiology, Akhil Diehl Ataxia [facility], in M.D. [place], [place] [address] [facility] [address] [place] [phone] (Babatunde billings) Social History Tobacco Use Types [...] you attend rastafarian or Patient refused 2021 mormon services? Do [...] this ANGIOGRAM WITH IV (most inpatients PM BUCKLE GLUER proced ure are in CONTRAST and all the results outpatients) section. documented in this encounter Results CT Head Neck Angiogram with IV Contrast (01/30/2021 3:24 PM BUCKLE GLUER) Anatomical Region Laterality Modality Head and Neck, Neuroradiology RST LOS, N/A C omputed Tomography, Computed Neuroradiology ARZ LOS, Neuroradiology T omography FLA [facility] Specimen (Source) Anatomical Collection Method Collection Time Re ceived Time Location / / Volume Laterality 01/30/2021 2:25 PM BUCKLE GLUER Impressions 01/30/2021 3:18 PM BUCKLE GLUER 1. 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 Slightly decreased high-grade stenosis a t the V3/4 junction with increased flow in the distal V4 segment. 2. Evolving, now chronic right cerebella r infarct. 3. 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 Narrative 01/30/2021 3:18 PM BUCKLE GLUER EXAM: CT HEAD NECK ANGIOGRAM WITH IV [...] normal caliber bilater al MCAs, ACAs and director hedis. Patent anterior and right posterior communicating arteri [...] normal caliber bilater al MCAs, ACAs and director hedis. Patent anterior and right posterior communicating arteri [...] mg iodine/mL solution Given 01/30/2021 2:29 PM BUCKLE GLUER 1 00 mL 1-200 mL (OMNIPAQUE) 1-200 mL, intravenous, Once in imaging, contrast, Starting on Tue01/30/21 at 1355, For 1 dose, Imaging Protocol Orders, Dose per Radiant Medication Guidelines sodium chloride (PF) 0.9 % injection 1-1 00 mL Given 01/30/2021 2:29 PM BUCKLE GLUER 35 mL 1-100 mL, intravenous, Once, On Tue01/30/21 at 1400, For 1 dose, Imaging Protocol Orders documented in this encounter Additional Health Concerns Assessment Noted Time PHQ-9 Depression Total Score: 5 04/05/2019 8:00 AM CDT documented as of this encounter
--- OUTSIDE RECORDS SUMMARY | 2022-09-14 12:07 | XMS_ITS | Encounter Summary ---
:1965 Author Organization [facility] Address [address] [place] [address] Care Team Providers Name Role Phone Unavailable Primary Care Provider Unavailable Encounter Details Date Type Department Care Team Description 01/20/2021 Anticoagulation Visit Department of Neurology Elvira Villalta in [facility] raúl SkaggsNBritton 1216 [facility] [address] [place] [phone] Social History Tobacco Use Types Packs/Day Years [...] you attend protestant or Patient refused 2021 yarsani services? Do [...] of this encounter Progress Notes Elvira Villalta RRebekah. - 01/20/2021 11:58 AM CST I received a call from Dr. Rosalva Aguila's nurse at [facility]. She states they have received our [...] Transfer of anticoagulation management back to PCP. ERTY MANAGEMENT ACCOUNTANT documented in this encounter Plan of Treatment Not on filedocumented as of this encounter Visit Diagnoses Not on filedocumented in this encounter Additional Health Concerns Assessment Noted Time PHQ-9 Depression Total Score: 5 04/05/2019 8:00 AM CDT documented as of this encounter
--- OUTSIDE RECORDS SUMMARY | 2022-09-14 12:07 | XMS_ITS | Encounter Summary ---
:1965 Author Organization [facility] Address [address] [place] [address] Care Team Providers Name Role Phone Unavailable Primary Care Provider Unavailable Reason for Visit Reason Comments Pre-visit Intake Encounter Details Date Type Department Care Team Description 01/29/2021 Clinical Communication Department of Robert Diehl e-visit Intake Neurology in Lilian Celaya [place], [facility] [place], [place] [address] [place] [phone] [place], [place] [phone] (Work) [phone] Social History Tobacco Use Types Packs/Day Years [...]
--- OUTSIDE RECORDS SUMMARY | 2022-09-14 12:07 | XMS_ITS | Encounter Summary ---
:1965 Author Organization [facility] Address [address] [place] [address] Care Team Providers Name Role Phone Unavailable Primary Care Provider Unavailable Encounter Details Date Type Department Care Team Description 02/02/2021 Orders Only Department of Neurology in Bisi Acevedo D.O. [place], [place] 200 [facility] 200 [place] [phone] (Wo rk) Social History Tobacco Use Types [...] you attend confucianist or Patient refused 2021 jainism services? Do [...]
--- OUTSIDE RECORDS SUMMARY | 2022-09-14 12:07 | XMS_ITS | Encounter Summary ---
:[address] [facility] Address [address] [place] [address] Care Team Providers Name Role Phone Unavailable Primary Care Provider Unavailable Reason for Referral Outpatient (Routine) - Closed Specialty Diagnoses / Procedures Referred By Contact Refer red To Contact Home Health Care Diagnoses Stroke (HCC) Chronic Pain Syndrome Stroke Cerebrovascular Accident Personal History Ric Quinn M.D., M.S. [address] [place] [phone] Referral ID Status Reason Start Date Expiration Date Visits Requ ested Visits Authorized [id number] Closed 02/03/2021 02/03/2022 1 1 ICK MAN Encounter Details Date Type Department Care Team Description 01/31/2021 - Hospital Encounter [facility] Blanca, Stroke (H CC) (Primary Dx); [facility], [address] [place] [address] Stroke Cerebrovascular Accident Personal History [facility], [facility] [phone] floor [phone] [place] [address] (Work) [place], [place] [phone] (Fax) [phone] Social History Tobacco Use Types Packs/Day Years [...] you attend islam or Patient refused 2021 yarsani services? Do [...] Comments Blood Pressure 133/71 02/03/2021 5:15 PM DERRICK MAN Pulse 92 02/03/2021 5:15 PM DERRICK MAN Temperature 36.5 ??C (97.7 ??F) 02/03/2021 5:15 PM DERRICK MAN Respiratory Rate 17 02/03/2021 5:15 PM DERRICK MAN Oxygen Saturation 97% 02/03/2021 5:15 PM DERRICK MAN Inhaled Oxygen Concentration - - Weight 78.8 kg (173 lb 11.6 oz) 01/31/2021 9:39 PM DERRICK MAN Height 152.4 cm (5') 01/31/2021 9:39 PM DERRICK MAN Body Mass Index 33.93 01/31/2021 9:39 PM DERRICK MAN documented in this encounter Discharge Summaries Malcom Torres M.D. - 02/03/2021 2:24 PM CST DISCHARGE SUMMARY BRIEF OVERVIEW Hospital: [facility] Discharge Provider: Nan Rios M.D. Primary Team: [facility] Neurology Stroke and Cerebrovascular Disease No primary care provider on file. Primary Care Provider Phone Number: None Primary Care Provider Fax Number: None Admission Date: 01/31/2021 Discharge Date: 02/03/2021 PRIMARY DIAGNOSIS Stroke (HCC) SECONDARY DIAGNOSES Principal Problem: Stroke (HCC) Resolved Problems: * No resolved hospital problems. * DISCHARGE DISPOSITION [place] [facility] [place] ACTIVE [...] FOR ADMISSION Stroke (HCC) HOSPITAL COURSE Ms.??Angie Bender??is a 55 y.o.??female??with past medical [...] artery dissection. Shewas subsequently admitted directly to [facility] Neurology Stroke service for further workup and [...] ??C, temperature source Oral, resp. rate 17, ifoxgi166.4 cm, weight 78.8 kg, SpO2 94 %. [...] were provided to the patient and caregiver(s). ICK MAN documented in this encounter Discharge Instructions Discharge InstructionsLaquita Raines - 02/02/2021 7:23 AM CST You were discharge from the Neurology Stroke Service. Please Identify this service name if you call with questions after your hospitalization. ICK MAN Discharge Instr - ActivityLeonides Liang PBrittonT. - 02/02/2021 1:13 PM DERRICK MAN Physical Therapy Discharge Summary MOBILITY RESTRICTIONS/PRECAUTIONS: Fall [...] 02/02/2021 by Leonides Liang P.T. 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 - 02/03/2021 1:57 PM CST No PT intervention today as patient was at an MRI this morning, now stating that she has just gone for a walk and plans are for dc to home with intermittent assist from her son. Helen Greer, PT ICK MAN Catalina Panchal RBrittonNBritton - 02/03/2021 1:49 PM CST Patient discussed at Stroke Multidisciplinary Rounds. Plan for the day: Case Management Following, PT/OT, Medication Management, MRI/MRA Plan for the Stay: Stroke w/u Discharge barriers: Inpatient Needs Recommended discharge disposition: [facility] w/[facility] ICK MAN Nan Rios M.D. - 02/03/2021 10:36 AM [...] pain syndrome, fibromyalgia, and nicotine use disorder. ICK MAN Leonides Kumar M.D. - 02/03/2021 7:09 AM [...] status: Prior Disposition: Home Plan discussed with [facility] Neurology Stroke and Cerebrovascular Disease Stucco Plasterer, Dr. Rios. Please page the [facility] Neurology Stroke and Cerebrovascular Disease service pager at [phone] with any questions. Leonides Kumar M.D. ICK MAN Makenzie Figueredo O.T.ABritton - 02/02/2021 3:24 PM CST Occupational Therapy [...] home to ensure her safety. From the Floor Person's perspective, the patient is not an inpatient [...] Treatment Time (min): 32 min MILA Cardoza ICK MAN Catalina Panchal RBetsy - 02/02/2021 2:31 PM CST Patient discussed at Stroke Multidisciplinary Rounds. Plan for the day: MRI, Case Management Consult, PT/OT, Medication Management Plan for the Stay: Stroke w/u Discharge barriers: Inpatient Needs Recommended discharge disposition: [facility] w/[facility] ICK MAN Leonides Liang P.T. - 02/02/2021 12:58 PM [...] Time (min): 32 min Leonides Liang P.T. ICK MAN Nan Rios M.D. - 02/02/2021 10:27 AM [...] pain syndrome, fibromyalgia, and nicotine use disorder. ICK MAN Jessie Rock Pharm.D., R.Ph. - 02/02/2021 10:21 AM CST Images from the original note were not included. Admission Medication History Note Adherence issues: Unable to assess Medication list source: Pharmacy or dispense records. Medication list provided by [facility] in [place]. Most recent dispensing information obtained. Multiple changes [...] by mouth 2 (two) times a day. ICK MAN Leonides Kumar M.D. - 02/02/2021 6:55 AM [...] status: Prior Disposition: Home Plan discussed with [facility] Neurology Stroke and Cerebrovascular Disease Stucco Plasterer, Dr. Rios. Please page the [facility] Neurology Stroke and Cerebrovascular Disease service pager at [phone] with any questions. Leonides Kumar M.D. ICK MAN Leonides Kumar M.D. - 02/01/2021 6:36 AM [...] status: Prior Disposition: Home Plan discussed with [facility] Neurology Stroke and Cerebrovascular Disease Stucco Plasterer, Dr. Rios. Please page the [facility] Neurology Stroke and Cerebrovascular Disease service pager at [phone] with any questions. Leonides Kumar M.D. ICK MAN documented in this encounter H&P Notes Nan [...] segment. ?? The patient presented to the [facility] with acute onset vertigo which occurred yesterday afternoon while she was at [facility]. She bent forward and complained of neck pain which radiated to the top of her head. She also complained of warmth all over her body and generalised weakness. ?? With effort, she was able to ambulate back to her car with her groceries, where she met her son, whothen took her to the [facility] ED. There, the patient had a head CT the chronic left cerebellar infarct. There was also concern for a new infarct in the right thalamus. INR was 1.35. She was transferred to [facility] for further evaluation. ?? Today, she feels [...] pain syndrome, fibromyalgia, and nicotine use disorder. ICK MAN Marbella Cutler M.D. - 02/01/2021 2:55 AM [...] V4 segment. The patient presented to the [facility] with acute onset vertigo which occurred yesterday afternoon while she was at [facility]. She bent forward and complained of neck pain which radiated to the top of her head. She also complained of warmth all over her body and generalised weakness. With effort, she was able to ambulate back to her car with her groceries, where she met her son, whothen took her to the [facility]. There, the patient had a head CT the chronic left cerebellar infarct. INR was 1.35. She was transferred to [facility] for further evaluation. On the floor, she was hemodynamically stable but complained of ongoing vertigo, with difficulty keeping her eyes open. Social history: she is currently unemployed but previously worked at a [employer] and [employer]. She is fully independent of her ADLs [...] admitting resident. Please page the Stroke service [phone] with questions/concerns. ICK MAN Gerald England M.D. - 01/31/2021 9:16 PM [...] artery dissection. Shewas subsequently admitted directly to [facility] Neurology Stroke service for further workup and [...] COMPUTER NAVIGATION.; Surgeon: Darlin Olmedo M.D.; Location: [facility] ROMB OR ??? HYSTERECTOMY ??? 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 Patent anterior and right posterior communicating arteries. [...] page the Cerebrovascular Neurology Service pager at [phone] with any questions or concerns. [facility] Stroke Neurology Service Mold Builder: Nan England M.D. STROKE DOCUMENTATION: Stroke Center [...] to hemorrhage and/or hemorrhagic risk Prestroke modified Guadalupe Score (mRS): 1 - No significant disability. [...] 30 or greater) and hormonal contraceptive use ICK MAN documented in this encounter Consult Notes Pamela Middleton M.S., TrayC., C.T.T.S. - 02/03/2021 10:08 AM CSTAssociated Order(s): IP CONSULT TO INTERNAL MEDICINE NICOTINE DEPENDENCE; IP CONSULT TO INTERNAL MEDICINE NICOTINE DEPENDENCE SUBJECTIVE Consults REASON FOR CONSULT Admitting Service: Neurology Reason for Consult: Tobacco Use Disorder HISTORY OF PRESENT ILLNESS Angie Bender is a 55 y.o. female who was seen at [place] and is being evaluated for tobacco use [...] the patient with educational materials and [facility] contact information. Patient is [...] Middleton M.S., Delvin, C.T.T.S. 02/03/2021 10:08 AM DERRICK MAN ICK MAN Catalina Panchal, R.N. - 02/02/2021 2:11 PM CSTAssociated Order(s): IP CONSULT TO CARE MANAGEMENT Discharge Planning Assessment SUBJECTIVE Referral Data Referral Source: Early Screen for Discharge Planning Referral Reason: Discharge Planning Discharge Planning: Home health Who was present during the interview?: Patient Sales And Service Consultant Services Used: No Patient Information Primary Caregiver: Self Legal Information Legal Decision Maker: Self Legal Status: Voluntary Caregiver Information Self Services Requested Home Health: halfway Level of Care: Intermediate OBJECTIVE Functional Status [...] Nurse visit Home Care Agency Name : [facility] Anticipated Discharge Destination: [place] [facility] Recommended Discharge Services: Nursing Does the patient need discharge transport arranged?: No ASSESSMENT / PLAN Plan Assessment: The assembly person met with Angie Bender to discuss her current hospitalization and home goingneeds. The patient was unaccompanied. The patient was a reliable historian, but was lacking completedetails at times. The role of assembly person was reviewed. The patient reviewed her prior level of care and support system. The patient receives support from her son. The patient described her living environment as a single level home with level entry. Housekeeping, grocery shopping, meal prep, and other household responsibilities have previously been completed by patient. assembly person discussed the patient's potential needs at dismissal based on their home setti ng, previous needs and responsibilities, homebound status, and relevant assessments with the patient. The patient will be safe and supported to return home with [facility] or previous services noted above when medically [...] dismissal will be provided by family--son. 3. assembly person recommended nothing at this time. 4. assembly person provided information regarding the dismissal process. 5. assembly person placed or requested the following hospital-based consult orders and/or referrals:None. 6. assembly person will continue to assess for homegoing needs with the interdisciplinary team. 7. assembly person encouraged the patient to reach out with any questions/concerns. Care Management will continue to follow. Patient to discharge with home health care. [facility] - Admitted Since 01/31/2021 The patient receives senior living visits 1-2x week. 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 02/02/2021 Radha Sanderson, P.T. - 02/01/2021 4:51 PM CST Physical Therapy [...] With: Alone Receives Help From: Family, Friend(s), reducing salon attendant ADL Assistance: Independent IADL/Homemaking Assistance: Required assistance IADL/Homemaking Assistance Comments: Has assistance with meals on wheels, cleaning, and medication management Occupational Role: On disability Prior Mobility/Functional Transfers Level of [place]: Independent Previous Transfer/Mobility Assistance Comments: Patient reports [...] Time (min): 25 min Radha Samuel P.T. ICK MAN Rosario Lopez O.Jolanta. - 02/01/2021 3:17 PM CST Occupational Therapy Acute Hospital Inpatient Evaluation/Treatment SUBJECTIVE Referring/Attending Provider: Nan Rios M.D. Patient's Name: Angie J. Demetri Reason for Referral: OT to evaluate and [...] With: Alone Receives Help From: Family, Friend(s), reducing salon attendant ADL Assistance: Independent IADL/Homemaking Assistance: Required assistance IADL/Homemaking Assistance Comments: Has assistance with meals on wheels, cleaning, and medication management Driving: Independent Occupational Role: On disability Occupational Role Comments: Previously worked at a [employer] and [employer] Prior Mobility/Functional Transfers Level of [place]: Independent Home Living Type of Home: Apartment [...] Time (min): 60 min Rosario Lopez O.T. ICK MAN Maria M Duque M.D. - 02/01/2021 7:21 AM CSTAssociated Order(s): IP CONSULT TO PHYSICAL MEDICINE & REHABILITATION Consult received for Physical Medicine and Rehabilitation Consult Service. I reviewed the electronic health record. I have triaged to therapy only; no servicenow administrator consult appears to be necessary at this time. If therapists or referring service feel that a servicenow administrator review is necessary, please send a new consult request with only the Physician consult - Physical Medicine and Rehabilitation consult (hospital) item selected. ICK MAN documented in this encounter Nursing Notes Sofie [...] by: Sofie Sutton R.N. 02/03/21 5:24 PM DERRICK MAN ICK MAN Sofie Sutton R.N. - 02/03/2021 5:20 PM [...] by: Sofie Sutton R.N. 02/03/21 5:22 PM DERRICK MAN ICK MAN Marlene Grover R.N. - 02/03/2021 5:14 AM [...] Goal: Patient discharge needs identified Outcome: Progressing ICK MAN Mague Rudolph R.N. - 02/02/2021 5:03 AM CST Shift Goals: Clinical Goals for the Shift: patient will use call light appropriately Identify possible barriers to meeting goals/advancing plan of care: End of Shift Summary: patient met goal ICK MAN Valarie Grayson R.N. 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 MRI scheduled for Tuesday related to device monitoring. Electronically signed by: Valarie Grayson R.N. 02/01/21 5:59 PM DERRICK MAN Problem: SKIN/TISSUE INTEGRITY Goal: Skin/Tissue integrity maintained or improved Outcome: Progressing Problem: SAFETY ADULT Goal: Maintain a safe environment Outcome: Progressing Problem: SAFETY ADULT - RISK FOR FALL AND OR FALL INJURY Goal: Patient remains free from fall/fall injury Outcome: Progressing ICK MAN documented in this encounter Miscellaneous Notes Hospital [...] she again began experiencing severe vertigo on Arabella 25th 2021 prompting a local EDvisit at which time [...] artery dissection. Shewas subsequently admitted directly to [facility] Neurology Stroke service for further workup and [...] after a CTA head/neck in 3 months. ICK MAN documented in this encounter Plan of Treatment Scheduled Referrals Name Type Priority Associated Diagnoses [facility] Outpatient Referral Routine Stroke (HCC) Ordered: Health Referral Chronic Pain Syn drome 02/03/2021 Stroke Cerebrovascular Accident Personal History documented as of this encounter Procedures Procedure Name Priority Date/Time Associated Comments Diagnosis MR NECK ANGIOGRAM RAD - Routine 02/03/2021 Results f or WITHOUT AND WITH IV (most inpatients 12:39 PM DERRICK MAN this procedure CONTRAST and all are in the outpatients) results section. MR BRAIN WITHOUT AND RAD - Routine 02/03/2021 Result s for WITH IV CONTRAST (most inpatients 12:34 PM DERRICK MAN this pr ocedure and all are in the outpatients) results section. DX ABDOMEN SUPINE WITH RAD - Routine 02/02/2021 3:26 R esults for UPRIGHT OR DECUBITUS 2 (most inpatients PM DERRICK MAN t his procedure VIEWS and all are in the outpatients) results section. PROTHROMBIN TIME (PT), Routine 02/02/2021 5:20 Re sults for P AM DERRICK MAN this procedure are in the results section. LIPID PANEL, S Routine 02/01/2021 5:21 Results fo r AM DERRICK MAN this procedure are in the results section. RENAL FUNCTION PANEL, S Routine 02/01/2021 5:21 R esults for AM DERRICK MAN this procedure are in the results section. FOLATE, S Routine 02/01/2021 5:21 Results for AM DERRICK MAN this procedure are in the results section. VITAMIN B12 ASSAY, S Routine 02/01/2021 5:21 Resu lts for AM DERRICK MAN this procedure are in the results section. ECG Routine 01/31/2021 Results for 11:35 PM DERRICK MAN this procedure are in the results section. SARS CORONAVIRUS 2, Routine 01/31/2021 Results for RNA, RAPID POC, V 10:32 PM DERRICK MAN this proce dure are in the results section. ELECTROLYTE (CHEM 4) Routine 01/31/2021 9:44 Resu lts for PANEL, S/P PM DERRICK MAN this procedure are in the results section. ACTIVATED PARTIAL Routine 01/31/2021 9:44 Results for THROMBOPLASTIN TIME PM DERRICK MAN this pro cedure (APTT), P are in the results section. PROTHROMBIN TIME (PT), Routine 01/31/2021 9:44 Re sults for P PM DERRICK MAN this procedure are in the results section. CBC WITH DIFFERENTIAL, Routine 01/31/2021 9:44 Re sults for B PM DERRICK MAN this procedure are in the results section. ALANINE Routine 01/31/2021 9:44 Results for AMINOTRANSFERASE (ALT), PM DERRICK MAN this procedure S/P are in the results section. ASPARTATE Routine 01/31/2021 9:44 Results for AMINOTRANSFERASE (AST), PM DERRICK MAN this procedure S/P are in the results section. THYROID-STIMULATING Routine 01/31/2021 9:44 Resul ts for HORMONE-SENSITIVE PM DERRICK MAN this proce dure (S-TSH) are in the results section. HEMOGLOBIN A1C, B Routine 01/31/2021 9:44 Results for PM DERRICK MAN this procedure are in the results section. documented in this encounter Results MR Neck Angiogram without and with IV Contrast (02/03/2021 12:39 PM DERRICK MAN) Anatomical Region Laterality Modality Neck, Neuroradiology RST LOS, Neuroradiology ARZ [facility], N/A Magnetic Resonance Neuroradiology FLA [facility] Specimen (Source) Anatomical Collection Method Collection Time Re ceived Time Location / / Volume Laterality 02/03/2021 11:37 AM DERRICK MAN Impressions 02/03/2021 1:26 PM DERRICK MAN 1. Infarctions in the posterior circulation of [...] technica l limitations. Narrative 02/03/2021 1:26 PM DERRICK MAN EXAM: MR BRAIN WITHOUT AND WITH IV [...] and with IV Contrast (02/03/2021 12:34 PM DERRICK MAN) Anatomical Region Laterality Modality Head, Brain, Neuroradiology RST LOS, Neuroradiology ADILIA N/A Magnetic Resonance LOS, Neuroradiology FLA [facility] Specimen (Source) Anatomical Collection Method Collection Time Re ceived Time Location / / Volume Laterality 02/03/2021 11:37 AM DERRICK MAN Impressions 02/03/2021 1:26 PM DERRICK MAN 1. Infarctions in the posterior circulation of [...] technica l limitations. Narrative 02/03/2021 1:26 PM DERRICK MAN EXAM: MR BRAIN WITHOUT AND WITH IV [...] or Decubitus 2 Views (02/02/2021 3:26 PM DERRICK MAN) Anatomical Region Laterality Modality Abdomen, Abdominal RST LOS, Abdominal ARZ LOS, Right Digital Radiography Abdominal FLA LOS Specimen (Source) Anatomical Collection Method Collection Time Re ceived Time Location / / Volume Laterality 02/02/2021 3:49 PM DERRICK MAN Impressions 02/02/2021 3:50 PM DERRICK MAN Spinal stimulator device with tip over the T7-8 interspace. Generator pack posterior to the left janett ac crest. Postoperative changes ventral hernia repair. Surgical marylin near the GE junction. Cholecystectomy. Lung bases are clear. Narrative 02/02/2021 3:50 PM DERRICK MAN EXAM: ??DX ABDOMEN SUPINE WITH UPRIGHT OR [...] (ABNORMAL) Prothrombin Time (PT) (02/02/2021 5:20 AM DERRICK MAN) [facility] Method Time Signature Prothrombin 16.2 (H) 9.4 - 12.5 02/02/2021 DTL Time, P sec 6:12 AM DERRICK MAN INR 1.5 0.9 - 1.1 02/02/2021 DTL 6:12 AM DERRICK MAN Comment: ----ADDITIONAL INFORMATION---- Standard intensity warfarin therapeutic range: 2.0 to 3.0 ?? High intensity warfarin therapeutic rang e: 2.5 to 3.5 Specimen Anatomical Collection Method Collection Time Receive d Time (Source) Location / / Volume Laterality Blood (Blood, 02/02/2021 5:20 AM 02/03/20 5:48 Venous) DERRICK MAN AM DERRICK MAN Leonides Kumar M.D. LAB BLOOD ADD-ON Performing Organization Address City/State/ZIP Code Phon e Number [facility] - [address] [place], [place] [address] [facility] [place] [address] Laboratories-[facility] [address] [facility] Renal Function Panel (02/01/2021 5:21 AM DERRICK MAN) P athologist Signature Potassium, S 4.3 3.6 - 5.2 02/01/2021 DTL mmol/L 6:26 AM DERRICK MAN Sodium, S 139 135 - 145 02/01/2021 DTL mmol/L 6:26 AM DERRICK MAN Chloride, S 106 98 - 107 02/01/2021 DTL mmol/L 6:26 AM DERRICK MAN Bicarbonate, S 25 22 - 29 02/01/2021 DTL mmol/L 6:26 AM DERRICK MAN Anion Gap 8 7 - 15 02/01/2021 DTL 6:26 AM DERRICK MAN BUN (Blood Urea 14 6 - 21 02/01/2021 DTL Nitrogen), S mg/dL 6:26 AM DERRICK MAN Creatinine 0.74 0.59 - 02/01/2021 DTL 1.04 mg/dL 6:26 AM DERRICK MAN eGFR-Non >90 >=60 02/01/2021 DTL Black/ mL/min/BSA 6:26 AM DERRICK MAN Nauruan Comment: ----ADDITIONAL INFORMATION---- Estimated GFR calculated using the 2009 CKD_EPI creatinine equation. eGFR-Black/ >90 >=60 mL/min/BSA 2020 6:26 AM DERRICK MAN DTL Comment: ----ADDITIONAL INFORMATION---- Estimated GFR calculated using the 2009 CKD_EPI creatinine equation. Calcium, Total, S 9.2 8.6 - 10.0 mg/dL 02/01/2021 6:26 AM DERRICK MAN DTL Glucose, S 96 70 - 140 mg/dL 02/01/2021 6:26 AM DERRICK MAN D TL Albumin, S 3.6 3.5 - 5.0 g/dL 02/01/2021 6:26 AM DERRICK MAN D TL Phosphorus (Inorganic), S 4.0 2.5 - 4.5 mg/dL 02/02/20 6:26 AM DERRICK MAN DTL Specimen Anatomical Collection Method Collection Time Receive d Time (Source) Location / / Volume Laterality Blood (Blood, 02/01/2021 5:21 AM 02/02/20 5:52 Venous) DERRICK MAN AM DERRICK MAN Gerald England M.D. LAB BLOOD ADD-ON Performing Organization Address City/[facility] Phon e Number [facility] - [address] [address] [facility] [address] [facility] (ABNORMAL) Vitamin B12 Assay (02/01/2021 5:21 AM DERRICK MAN) Analysis Performed At Patho logist Time Signature Vitamin B12 >1400 (H) 180 - 914 02/02/2021 DTL Assay, S ng/L 7:10 AM DERRICK MAN Comment: ----ADDITIONAL INFORMATION---- In patients being evaluated [...] (Blood, 02/01/2021 5:21 AM 02/02/20 5:52 Venous) DERRICK MAN AM DERRICK MAN Gerald England M.D. LAB BLOOD ADD-ON Performing Organization Address City/[facility] Phon e Number [facility] - [address] [place], [place] [address] [place] [address] [facility] [address] [facility] Folate (02/01/2021 5:21 AM DERRICK MAN) P athologist Signature Folate, S 17.9 >=4.0 mcg/L 02/02/2021 7:09 DTL AM DERRICK MAN Specimen Anatomical Collection Method Collection Time Receive d Time (Source) Location / / Volume Laterality Blood (Blood, 02/01/2021 5:21 AM 02/02/20 5:52 Venous) DERRICK MAN AM DERRICK MAN Gerald England M.D. LAB BLOOD ADD-ON Performing Organization Address City/[facility] Phon e Number [facility] - [address] [place], [place] [address] [facility] [place] [address] [facility] [address] [facility] Lipid Panel (02/01/2021 5:21 AM DERRICK MAN) P athologist Signature Cholesterol, 157 mg/dL 02/01/2021 DTL Total 6:27 AM DERRICK MAN Comment: ----REFERENCE VALUE---- Desirable: < 200 Borderline high: 200 - 239 High: > or = 240 Triglycerides 107 mg/dL 02/01/2021 6:27 AM DERRICK MAN DTL Comment: ----REFERENCE VALUE---- Normal: <150 Borderline high: 150-199 High: 200-499 Very high: > or =500 Cholesterol, HDL, S 88 >=50 mg/dL 02/01/2021 6:27 AM DERRICK MAN DTL Calculated LDL 48 mg/dL 02/01/2021 6:27 AM DERRICK MAN DT L Comment: ----REFERENCE VALUE---- Desirable: <100 Above Desirable: 100-129 Borderline high: 130-159 High: 160-189 Very high: > or =190 Cholesterol, Non-HDL, Calculated 69 mg/dL 021 6:27 AM DERRICK MAN DTL Comment: ----REFERENCE VALUE---- Desirable: <130 Above Desirable: 130-159 Borderline high: 160-189 High: 190-219 Very high: > or =220 Specimen Anatomical Collection Method Collection Time Receive d Time (Source) Location / / Volume Laterality Blood (Blood, 02/01/2021 5:21 AM 02/02/20 5:52 Venous) DERRICK MAN AM DERRICK MAN Gerald England M.D. LAB BLOOD ADD-ON Performing Organization Address City/[facility] Phon e Number [facility] - [address] [place], [place] [address] [facility] [place] [address] [facility] 200 [facility] ECG 12 Lead (01/31/2021 11:35 PM DERRICK MAN) P athologist Signature Ventricular Rate 60 BPM MUSE ECG/Min DC Interval 170 ms MUSE QRSD Interval 88 ms MUSE QT Interval 434 ms MUSE QTC Interval 434 ms MUSE P Hollister 31 degrees MUSE R Hollister -16 degrees MUSE T Wave Hollister 3 degrees MUSE Specimen Anatomical Collection Method Collection Time Receive d Time (Source) Location / / Volume Laterality 01/31/2021 11:35 02/01/2021 6:10 PM DERRICK MAN AM DERRICK MAN Impressions MUSE - 02/01/2021 6:10 AM DERRICK MAN Normal sinus rhythm Minimal voltage criteria for [...] Rapid POC, V Asymptomatic (01/31/2021 10:32 PM DERRICK MAN) [facility] gist Method Time Signature SARS Undetected Undetected 01/31/2021 DTLR Coronavirus-2 10:52 PM DERRICK MAN , RNA, Rapid POC, V Comment: Negative for SARS-CoV-2. The Cue COVID-19 test is a molecular shahzad t for SARS-CoV-2, the virus that causes COVID- 19. A Negative result means that the [employer] COV ID-19 test did not detect SARS-CoV-2 virus in your sample. Cue COVID-19 test uses the [employer] home renovations System. This test has received Emergency Use Authorization (EUA) by the U.S. Food and Drug Administration (FDA) and is used per man ufacturer instructions. Performance characteristic s were verified by [facility] in a manner consistent with CLIA requirements. Fact sheets for this Emerg ency Use Authorization (EUA) can be found at the following links: Providers: https://[email or web address]/prov iders.pdf Patients: [email or web address].pdf SARS Coronavirus 2, Source Nasopharynx DEFAULT 01/31/2021 10:52 PM DERRICK MAN DTLR Specimen Anatomical Collection Method Collection Time Receive d Time (Source) Location / / Volume Laterality Varies 01/31/2021 10:32 01/31/2021 (Nasopharynx) PM DERRICK MAN 10:32 PM DERRICK MAN Nan Rios M.D. LAB MICROBIOLOGY - GENERAL O RDERABLES Performing Organization Address City/[facility] Phon e Number PERFORMING LABS, RE[place] [address] INTERFACE Ref Interface 200 [facility] DTLR Performing Labs, [place] [address] Interface 200 [facility] Electrolyte (Chem 4) Panel (01/31/2021 9:44 PM DERRICK MAN) athologist Signature Potassium, P 4.0 3.6 - 5.2 01/31/2021 STMA mmol/L 10:06 PM DERRICK MAN Sodium, P 137 135 - 145 01/31/2021 STMA mmol/L 10:06 PM DERRICK MAN Chloride, P 104 98 - 107 01/31/2021 STMA mmol/L 10:06 PM DERRICK MAN Bicarbonate, P 24 22 - 29 01/31/2021 STMA mmol/L 10:06 PM DERRICK MAN Anion Gap, P 9 7 - 15 01/31/2021 STMA 10:06 PM DERRICK MAN Specimen Anatomical Collection Method Collection Time Receive d Time (Source) Location / / Volume Laterality Blood (Blood, 01/31/2021 9:44 PM 02/01/20 21 9:56 Venous) DERRICK MAN PM DERRICK MAN Gerald England M.D. LAB BLOOD ADD-ON Performing Organization Address [facility] Phon e Number [facility] - [address] [place], [place] [address] [facility] [place] [address] [facility] 200 [facility] (ABNORMAL) Prothrombin Time (PT) (01/31/2021 9:44 PM DERRICK MAN) [facility] gist Method Time Signature Prothrombin 15.5 (H) 9.4 - 12.5 01/31/2021 DTL Time, P sec 10:27 PM DERRICK MAN INR 1.4 0.9 - 1.1 01/31/2021 DTL 10:27 PM DERRICK MAN Comment: ----ADDITIONAL INFORMATION---- Standard intensity warfarin therapeutic range: 2.0 to 3.0 ?? High intensity warfarin therapeutic rang e: 2.5 to 3.5 Specimen Anatomical Collection Method Collection Time Receive d Time (Source) Location / / Volume Laterality Blood (Blood, 01/31/2021 9:44 PM 02/01/20 Venous) DERRICK MAN 10:06 PM DERRICK MAN Gerald England M.D. LAB BLOOD ADD-ON Performing Organization Address City/[facility] Phon e Number [facility] - [address] APTT (Activated Partial Thromboplastin Time) (01/31/2021 9:44 PM DERRICK MAN) P athologist Signature Activated 35 25 - 37 sec 01/31/2021 DT Partial 10:27 PM DERRICK MAN Thrombopl Time, P Specimen Anatomical Collection Method Collection Time Receive d Time (Source) Location / / Volume Laterality Blood (Blood, 01/31/2021 9:44 PM 02/01/20 Venous) DERRICK MAN 10:06 PM DERRICK MAN Gerald England M.D. LAB BLOOD ADD-ON Performing Organization Address City/[facility] Phon e Number [facility] - [address] (ABNORMAL) Hemoglobin A1c (01/31/2021 9:44 PM DERRICK MAN) P athologist Signature Hemoglobin A1c, 6.1 (H) 4.0 - 5.6 01/31/2021 DTL B % 10:18 PM DERRICK MAN Comment: Hemoglobin A1c values of 5.7-6.4 percent indicate an increased risk for developing diabetes m brody. In diabetic patients, HbA1c goals should be discussed with healthcare provider. Specimen Anatomical Collection Method Collection Time Receive d Time (Source) Location / / Volume Laterality Blood (Blood, 01/31/2021 9:44 PM 03/06/20 21 Venous) DERRICK MAN 10:06 PM DERRICK MAN Gerald England M.D. LAB BLOOD ADD-ON Performing Organization Address City/State/ZIP Code Phon e Number [facility] - [address] [place], [place] [address] [facility] [place] [address] [facility] [address] [facility] (ABNORMAL) CBC with Differential, Blood (01/31/2021 9:44 PM DERRICK MAN) [facility] Method Time Signature Hemoglobin 11.1 (L) 11.6 - 01/31/2021 DTL 15.0 g/dL 10:12 PM DERRICK MAN Hematocrit 34.9 (L) 35.5 - 01/31/2021 DTL 44.9 % 10:12 PM DERRICK MAN Erythrocytes 3.84 (L) 3.92 - 01/31/2021 DTL 5.13 10:12 PM DERRICK MAN x10(12)/L MCV 90.9 78.2 - 01/31/2021 DTL 97.9 fL 10:12 PM DERRICK MAN RBC Distrib Width 14.4 12.2 - 01/31/2021 DTL 16.1 % 10:12 PM DERRICK MAN Platelet Count 326 157 - 371 01/31/2021 DTL x10(9)/L 10:12 PM DERRICK MAN Leukocytes 6.8 3.4 - 9.6 01/31/2021 DTL x10(9)/L 10:12 PM DERRICK MAN Neutrophils 4.91 1.56 - 01/31/2021 DTL 6.45 10:12 PM DERRICK MAN x10(9)/L Lymphocytes 1.52 0.95 - 01/31/2021 DTL 3.07 10:12 PM DERRICK MAN x10(9)/L Monocytes 0.34 0.26 - 01/31/2021 DTL 0.81 10:12 PM DERRICK MAN x10(9)/L Eosinophils 0.03 0.03 - 01/31/2021 DTL 0.48 10:12 PM DERRICK MAN x10(9)/L Basophils 0.03 0.01 - 01/31/2021 DTL 0.08 10:12 PM DERRICK MAN x10(9)/L Specimen Anatomical Collection Method Collection Time Receive d Time (Source) Location / / Volume Laterality Blood (Blood, 01/31/2021 9:44 PM 02/01/20 21 Venous) DERRICK MAN 10:06 PM DERRICK MAN Gerald England M.D. LAB BLOOD ADD-ON Performing Organization Address City/State/ZIP Code Phon e Number [facility] - [address] [place], [place] [address] [facility] [place], [place] [id number] [place] [address] S-TSH (Thyroid-Stimulating Hormone - Sensitive) (01/31/2021 9:44 PM DERRICK MAN) P athologist Signature TSH, Sensitive 0.3 0.3 - 4.2 01/31/2021 DTL mIU/L 10:59 PM DERRICK MAN Specimen Anatomical Collection Method Collection Time Receive d Time (Source) Location / / Volume Laterality Blood (Blood, 01/31/2021 9:44 PM 02/01/20 21 Venous) DERRICK MAN 10:06 PM DERRICK MAN Gerald England M.D. LAB BLOOD ADD-ON Performing Organization Address City/State/ZIP Code Phon e Number [facility] - [address] [place] [address] [facility] [place] [address] [place] [address] [address] [facility] AST (Aspartate Aminotransferase) (01/31/2021 9:44 PM DERRICK MAN) [facility] gist Method Time Signature Aspartate 23 8 - 43 01/31/2021 DTL Aminotransferase U/L 10:59 PM DERRICK MAN (AST), S Specimen Anatomical Collection Method Collection Time Receive d Time (Source) Location / / Volume Laterality Blood (Blood, 01/31/2021 9:44 PM 02/01/20 21 Venous) DERRICK MAN 10:06 PM DERRICK MAN Gerald England M.D. LAB BLOOD ADD-ON Performing Organization Address City/State/ZIP Code Phon e Number [facility] - [address] [place], [place] [address] [facility] [place] [address] ALT (Alanine Aminotransferase) (01/31/2021 9:44 PM DERRICK MAN) [facility] gist Method Time Signature Alanine 15 7 - 45 01/31/2021 DTL Aminotransferase U/L 10:59 PM DERRICK MAN (ALT), S Specimen Anatomical Collection Method Collection Time Receive d Time (Source) Location / / Volume Laterality Blood (Blood, 01/31/2021 9:44 PM 02/01/20 21 Venous) DERRICK MAN 10:06 PM DERRICK MAN Gerald England M.D. LAB BLOOD ADD-ON Performing Organization Address City/State/ZIP Code Phon e Number [facility] - [address] [place], [place] [address] [facility] [place] [address] [facility] [address] documented in this encounter Visit Diagnoses Diagnosis Stroke (HCC) Chronic Pain Syndrome Stroke Cerebrovascular Accident Personal History Stroke (HCC) documented in this encounter Admitting Diagnoses Diagnosis Stroke (HCC) documented in this encounter Administered Medications Inactive Administered Medications - up to 3 most recent administrations Medication Order MAR Action Action Date Dose Rate Site acetaminophen tablet 1,000 mg Given 02/03/2021 6:56 AM DERRICK MAN 1,000 mg (TYLENOL) 1,000 mg, oral, Every 6 hours PRN, mild pain or score 1-3 of 10, moderate pain or score 4-6 of 10, headaches, Starting on 02/01/21 at 0210 Given 02/02/2021 2:36 PM DERRICK MAN 1,000 mg Given 02/02/2021 8:53 AM DERRICK MAN 1,000 mg albuterol 90 mcg/actuation inhaler 2 puf f Given 02/03/2021 4:29 AM DERRICK MAN 2 puffs 2 puff, inhalation, Every 6 hours PRN, wheezing, shortness of breath, Starting on 02/01/21 at 1115 apixaban tablet 5 mg (ELIQUIS) Given 02/03/2021 9:30 AM DERRICK MAN 5 mg 5 mg, oral, 2 times daily, First dose on 02/02/21 at 2100 Given 02/02/2021 8:09 PM DERRICK MAN 5 mg aspirin tablet 325 mg Given 02/02/2021 8:11 AM DERRICK MAN 325 mg 325 mg, oral, Daily, First dose on 02/01/21 at 1030 Given 02/01/2021 10:54 AM DERRICK MAN 325 mg atorvastatin tablet 40 mg (LIPITOR) Given 02/02/2021 8:09 PM DERRICK MAN 40 mg 40 mg, oral, Daily at [...] 25 m cg Given 02/03/2021 9:29 AM DERRICK MAN 25 mcg 25 mcg, oral, Daily, First dose on 02/01/21 at 0900, cholecalciferol (vitamin D3) orderable was interchanged for cholecalciferol (vitamin D3) tablet/capsule Given 02/02/2021 8:10 AM DERRICK MAN 25 mcg Given 02/01/2021 9:11 AM DERRICK MAN 25 mcg cyanocobalamin tablet 2,000 mcg (VITAMIN Given 02/03/2021 9: 28 AM DERRICK MAN 2,000 mcg B12) 2,000 mcg, oral, Daily, First dose on 02/01/21 at 0900 Given 02/02/2021 8:08 AM DERRICK MAN 2,000 mcg Given 02/01/2021 9:11 AM DERRICK MAN 2,000 mcg diazePAM tablet 10 mg (VALIUM) Given 02/03/2021 10:51 AM DERRICK MAN 10 mg 10 mg, oral, 2 times daily PRN, anxiety, Starting on 02/01/21 at 1016 Given 02/02/2021 10:24 PM DERRICK MAN 10 mg Given 02/02/2021 8:53 AM DERRICK MAN 10 mg docusate sodium 283 mg/5 mL enema 1 enem a (ENEMEEZ) 1 enema, rectal, 2 times daily PRN, cons tipation, Starting on 01/31/21 at 2125, If no bowel movement within 24 hours of starting bisac odyl FLUoxetine capsule 80 mg (PROzac) Given 02/03/2021 9:28 AM DERRICK MAN 80 mg 80 mg, oral, Daily, First dose on 02/01/21 at 0900, FLUoxetine orderable was interchanged for FLUoxetine tablet/capsule Given 02/02/2021 8:10 AM DERRICK MAN 80 mg Given 02/01/2021 9:10 AM DERRICK MAN 80 mg folic acid tablet 800 mcg Given 02/03/2021 9:29 AM DERRICK MAN 800 mcg 800 mcg, oral, Every morning, First dose on Tue02/01/21 at 0900 Given 02/02/2021 8:14 AM DERRICK MAN 800 mcg Given 02/01/2021 10:00 AM DERRICK MAN 800 mcg furosemide tablet 40 mg (LASIX) Given 02/03/2021 9:29 AM DERRICK MAN 40 mg 40 mg, oral, 2 times daily, First dose on Tue02/02/21 at 0900 Given 02/02/2021 6:25 PM DERRICK MAN 40 mg Given 02/02/2021 8:10 AM DERRICK MAN 40 mg gadobutrol injection 0.01-30 mL (GADAVIS T) Given 02/03/2021 12:35 PM DERRICK MAN 8 mL 0.01-30 mL, intravenous, Once in imaging, contrast, Starting on Tue02/03/21 at 1235, For 1 dose, Imaging Protocol Orders, Dose per Radiant Medication Guidelines heparin (porcine) Given 02/02/2021 6:29 AM DERRICK MAN 5,000 Units Left Lower Abdomen injection 5,000 Units 5,000 Units, subcutaneous, Every 8 hours scheduled, First dose on Tue02/01/21 at 0600 Given 02/01/2021 9:17 PM DERRICK MAN 5,000 Units Right Lower Abdomen Given 02/01/2021 1:56 PM DERRICK MAN 5,000 Units Right Lower Abdomen lamoTRIgine tablet 200 mg (LaMICtal) Given 02/03/2021 9:29 AM DERRICK MAN 200 mg 200 mg, oral, 2 times daily, First dose (after last modification) on 01/31/21 at 2245 Given 02/02/2021 8:09 PM DERRICK MAN 200 mg Given 02/02/2021 8:11 AM DERRICK MAN 200 mg lidocaine 5 % 1 patch Medication Applied 01/31/2021 10:44 PM 1 patch Upper Back (LIDODERM) DERRICK MAN 1 patch, transdermal, Administer over 12 Hours, Daily, First dose on 01/31/21 at 2200, Remove after 12 hours. lidocaine 5 % ointment 1 application Given 02/02/2021 2:33 A M DERRICK MAN 1 application (XYLOCAINE) 1 application, topical, 3 times daily PRN, mild pain or score 1-3 of 10, Starting on Tue02/01/21 at 1114, MAX of 20 g of ointment/day Given 02/01/2021 5:18 PM DERRICK MAN 1 application loratadine tablet 10 mg (CLARITIN) Given 02/03/2021 9:30 AM DERRICK MAN 10 mg 10 mg, oral, Daily, First dose on Tue02/01/21 at 0900, loratadine 10 mg oral daily was interchanged for cetirizine 5 mg oral twice daily Given 02/02/2021 8:11 AM DERRICK MAN 10 mg Given 02/01/2021 9:12 AM DERRICK MAN 10 mg magnesium oxide tablet 400 mg (MAG-OX) Given 02/02/2021 8:09 PM DERRICK MAN 400 mg 400 mg, oral, Daily at bedtime, First dose on Tue02/01/21 at 2100, magnesium oxide 400 mg daily was interchanged for magnesium gluconate 500 mg daily Given 02/01/2021 9:17 PM DERRICK MAN 400 mg meclizine tablet 25 mg (ANTIVERT) Given 02/02/2021 3:01 AM DERRICK MAN 25 mg 25 mg, oral, 3 times daily PRN, dizziness, Starting on Tue02/01/21 at 0211 Given 02/01/2021 9:19 AM DERRICK MAN 25 mg meclizine tablet 25 mg (ANTIVERT) Given 02/02/2021 8:09 PM DERRICK MAN 25 mg 25 mg, oral, 4 times [...] 1 patch Left Shoulder patch (NICODERM CQ) DERRICK MAN 1 patch, transdermal, Administer over 24 Hours, Daily, First dose on Tue02/01/21 at 0900 Medication Applied 02/02/2021 8:14 AM DERRICK MAN 1 patch Right Arm Medication Applied 02/01/2021 9:13 AM DERRICK MAN 1 patch Left Shoulder nicotine 21 mg/24 hr 1 Medication Applied 02/03/2021 2:55 PM 1 patch Left Shoulder patch (NICODERM CQ) DERRICK MAN 1 patch, transdermal, Administer over 24 Hours, Daily, First dose on Tue02/03/21 at 1330 ondansetron ODT disintegrating tablet 4 mg Given 02/02/2021 10:2 4 PM DERRICK MAN 4 mg (ZOFRAN-ODT) 4 mg, oral, Every 8 hours PRN, nausea, Starting on 01/31/21 at 2228, When splitting ODT at bedside, handle with gloves and a pill splitter to prevent moisture contact. Given 02/02/2021 2:36 PM DERRICK MAN 4 mg Given 02/01/2021 1:12 AM DERRICK MAN 4 mg oxyCODONE IR tablet 10 mg (ROXICODONE) Given 02/03/2021 5:02 PM DERRICK MAN 10 mg 10 mg, oral, Every 6 hours PRN, moderate pain or score 4-6 of 10, Starting on 01/31/21 at 2229 Given 02/03/2021 2:42 AM DERRICK MAN 10 mg Given 02/02/2021 8:08 PM DERRICK MAN [address] tablet 40 mg (PROTONIX) Given 02/03/2021 4:58 PM DERRICK MAN 40 mg 40 mg, oral, 2 times daily before breakfast and dinner, First dose on 02/01/21 at 0700, pantoprazole 40 mg oral twice daily was interchanged for esomeprazole 20 or 40 mg oral twice daily Swallow whole. Do NOT crush, chew, or split tablet. Given 02/03/2021 6:56 AM DERRICK MAN 40 mg Given 02/02/2021 6:25 PM DERRICK MAN 40 mg pregabalin capsule 150 mg (LYRICA) Given 02/01/2021 9:12 AM DERRICK MAN 150 mg 150 mg, oral, Every morning, First dose on 02/01/21 at 0900 pregabalin capsule 300 mg (LYRICA) Given 01/31/2021 11:16 PM DERRICK MAN 300 mg 300 mg, oral, Every evening, First dose on 01/31/21 at 2300 pregabalin capsule 300 mg (LYRICA) Given 02/03/2021 9:28 AM DERRICK MAN 300 mg 300 mg, oral, Every morning, First dose (after last modification) on 02/02/21 at 0900 Given 02/02/2021 8:10 AM DERRICK MAN 300 mg pregabalin capsule 600 mg (LYRICA) Given 02/02/2021 8:09 PM DERRICK MAN 600 mg 600 mg, oral, Daily at bedtime, First dose (after last modification) on 02/01/21 at 2100 Given 02/01/2021 9:17 PM DERRICK MAN 600 mg promethazine injection 6.25 mg (PHENERGA N) Given 02/01/2021 12:47 PM DERRICK MAN 6.25 mg 6.25 mg, intravenous, Once, On 02/01/21 at 1030, For 1 dose QUEtiapine tablet 50 mg (SEROquel) Given 02/03/2021 12:39 AM DERRICK MAN 50 mg 50 mg, oral, Bedtime PRN, agitation/sleep, Starting on 02/01/21 at 1310 rOPINIRole tablet 2 mg (REQUIP) Given 02/03/2021 2:42 AM DERRICK MAN 2 mg 2 mg, oral, Daily PRN, restless legs, Starting on 01/31/21 at 2233 sennosides-docusate sodium 8.6-50 mg per Given 02/03/2021 9: 27 AM DERRICK MAN 2 tablets tablet 2 tablet (SENOKOT-S) 2 [...] 300 mg (ZONEGRAN) Given 02/03/2021 9:28 AM DERRICK MAN 300 mg 300 mg, oral, 2 times daily, First dose (after last modification) on 01/31/21 at 2245, Swallow whole. Do NOT crush, chew or open capsule. Given 02/02/2021 8:09 PM DERRICK MAN 300 mg Given 02/02/2021 8:53 AM DERRICK MAN 300 mg documented in this encounter Active and Recently Administered Medications Times are shown in DERRICK MAN. Scheduled Medication Order 02/01/2021 02/02/2021 02/03/2021 apixaban tablet 5 mg (ELIQUIS) 2008 (Given - Pro vider: Marlene Grover R.N.) 9600 (Given - Provider: Karma Cervantes R.N.) 5 [...] R.NBritton) 1 application, topical, 3 times daily DC N, mild pain or score 1-3 of [...] COVID19 Pending 01/31/2021 01/31/2021 01/31/2021 10:53 PM DERRICK MAN Assessment Noted Time PHQ-9 Depression Total Score: 23 02/02/2021 11:[address] documented as of this encounter
--- OUTSIDE RECORDS SUMMARY | 2022-09-14 12:07 | XMS_ITS | Encounter Summary ---
:[address] [facility] Address [address] [place] [address] Care Team Providers Name Role Phone Unavailable Primary Care Provider Unavailable Encounter Details Date Type Department Care Team Description 01/05/2021 Anticoagulation Visit Department of Neurology Elvira Villalta in [facility] raúl SkaggsNBritton [address] [facility] [address] [place] [phone] Social History Tobacco Use Types Packs/Day Years [...] you attend scientology or Patient refused 2021 roman catholic services? [...] an INR at her outside clinic in [place], [place] today and I called the lab [phone] and was told she did not report [...] advised for today, she report to the [facility] lab as scheduled. Ms. Mosquera states she will do that. RECOMMENDED LEVEL OF CARE. The patient/caller is willing and able to follow the nurse's recommendation. RESPONSE TO ADVICE GIVEN. Patient/caller able to teach back. REFERENCES UTILIZED. Nursing clinical judgment utilized. Other interventions or information: Provider advice. TYPE OF PHONE CALL. 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 - 01/05/2021 4:06 PM CST Patient's INR today is 1.47. Discussed with Dr. Neri Acevedo ([phone]) who advises that the patient take 7.5 [...] OF PHONE CALL. Test results, symptom assessment. 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 documented in this encounter Results Prothrombin Time (PT) (01/05/2021 3:15 PM TUNNEL FORM PLACING SUPERVISOR) P athologist Signature EXT INR 1.47 OTHER (SPECIFY IN SUPERVISOR SEWING ROOM) Specimen (Source) Anatomical Collection Method Collection Time Re ceived Time Location / / Volume Laterality Blood (Blood, 01/05/2021 3:15 PM Venous) TUNNEL FORM PLACING SUPERVISOR Narrative This result has an attachment that is no t available. Resulting Agency Comment [facility] Historical Provider LAB BLOOD ADD-ON Performing Organization Address City/State/ZIP Code Phon e Number OTHER (SPECIFY IN SUPERVISOR SEWING ROOM) OTHER (SPECIFY IN SUPERVISOR SEWING ROOM) N/A documented in this encounter Visit Diagnoses Not on filedocumented in this encounter Additional Health Concerns Assessment Noted Time PHQ-9 Depression Total Score: 5 04/05/2019 8:00 AM CDT documented as of this encounter
--- OUTSIDE RECORDS SUMMARY | 2022-09-14 12:08 | XMS_ITS | Encounter Summary ---
:1965 Author Organization [facility] Address [address] [place] [address] Care Team Providers Name Role Phone Unavailable Primary Care Provider Unavailable Reason for Visit Reason Comments Michel Encounter Details Date Type Department Care Team Description 09/11/2020 Clinical Communication Department of Robert Diehl [facility] in [place], [place] [address] [place] [address] [address] [place] [phone] Social History Tobacco Use Types Packs/Day Years [...] you attend anabaptist or Patient refused 2021 quaker services? Do [...]
--- OUTSIDE RECORDS SUMMARY | 2022-09-14 12:08 | XMS_ITS | Encounter Summary ---
:[address] [facility] Address [address] [place] [address] Care Team Providers Name Role Phone Unavailable Primary Care Provider Unavailable Encounter Details Date Type Department Care Team Description 01/07/2020 Diagnostic Division of Pulmonary Akhil Diehl M.D. [facility] Medicine in [place], [facility] [address] [place], [place] [address] [address] [place] [address] [phone] Social History Tobacco Use Types Packs/Day Years [...] you attend adventism or Patient refused 2021 roman catholic services? [...] PDF report for results Robert Diehl M.D. PFJolanta ORDERABLES Performing Organization Address City/State/ZIP Code Phon e Number JOANNE BROWNEISION EAP documented in this encounter Visit Diagnoses Diagnosis Fatigue documented in this encounter Additional Health Concerns Assessment Noted Time PHQ-9 Depression Total Score: 5 04/05/2019 8:00 AM CDT documented as of this encounter
--- OUTSIDE RECORDS SUMMARY | 2022-09-14 12:08 | XMS_ITS | Encounter Summary ---
:1965 Author Organization [facility] Address [address] [place] [address] Care Team Providers Name Role Phone Unavailable Primary Care Provider Unavailable Encounter Details Date Type Department Care Team Description 12/07/2019 Anesthesia Event RST ROMB LUISA OR Leonides Walker, [address] [facility] [address] [address] [place] [address] [place] [address] (Wo rk) Anesthesia Record Procedure [...] h andoff to the receiving staff during [facility] we 1. Identified the patient [...] Simin valentine, Jey García, (created via procedure SUBCONTRACT MANAGER, MOLD CLOSER HELPER SUBCONTRACT MANAGER, TY A documentation); Mask Ventilation: Easy mask; [...] you attend tenriism or Patient refused 2021 pentecostal services? Do you belong to any clubs or No 05/17/2022 organizations such as tenriism groups, unions, [employer] or athletic groups, or school groups? How [...] Procedure Summary Date: 12/07/19 Room / Location: [place] [address] ROMB 01 580 / [facility] [place], [place] Anesthesia Start: 1234 Anesthesia Stop: 1434 Procedures: SINUSOTOMY ENDOSCOPY FRONTAL. (Bilateral Nose) EXTRADURAL COMPUTER NAVIGATION. 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 Responsible Provider: Leonides Walker M.D. Anesthesia [...] Promethazine; otherwise, uneventful recovery with outpt dispo. CIPAL ENGINEER Anesthesia Procedure Notes - Gini Garcia APRN, [...] Procedure outcome: successful Airway event: no complications CIPAL ENGINEER Anesthesia Preprocedure Evaluation - Leonides Walker M.D. - 12/07/2019 11:59 AM CST Preprocedure Anesthesia & H&P Assessment Procedure Summary Date/Time: 12/07/19 1119 Procedures: SINUSOTOMY ENDOSCOPY FRONTAL. (Bilateral Nose) EXTRADURAL COMPUTER NAVIGATION. 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 Location: [place] [address] / [facility] [place], [place] Provider: Darlin Olmedo M.D. Pertinent components [...] #11 Patent Foramen Ovale (HCC) Noted on [id number]/ ECHO otherwise normal. I will not pursue [...] with patient /legal guardian or through an grocery store bagger. The use of blood products not discussed Approval to Proceed: approved for anesthesia CIPAL ENGINEER documented in this encounter Plan of Treatment Not on filedocumented as of this encounter Procedures Procedure Name Priority Date/Time Associated Comments Diagnosis LDA ANE ENDOTRACHEAL Routine 12/07/2019 12:47 Res ults for this AIRWAY PM MUNICIPAL ENGINEER procedure are i n the results section. documented in this encounter Results LDA ANE ENDOTRACHEAL AIRWAY (12/07/2019 12:47 PM MUNICIPAL ENGINEER) Narrative Gini Garcia APRN, CRNA - 2019 12:47 PM MUNICIPAL ENGINEER Gini Garcia APRN, GINETTE ? 12/07/2019 12:49 PM Airway Date/Time: 12/07/2019 12:44 PM Performed by: Gini Garcia APRN, MOLD CLOSER HELPER Authorized by: Leonides Walker M.D. Patient location [...] dexamethasone injection (DECADRON) Given 12/07/2019 12:43 PM MUNICIPAL ENGINEER 4 mg As needed, Starting on Tue12/07/19 at 1243, Anesthesia Intra-op ePHEDrine (PF) injection Given 12/07/2019 12:48 PM MUNICIPAL ENGINEER 5 mg intravenous, As needed, Starting on Tue12/07/19 at 1242, Anesthesia Intra-op Given 12/07/2019 12:42 PM MUNICIPAL ENGINEER 25 mg fentaNYL injection 25 mcg (SUBLIMAZE) Given 12/07/2019 2:32 PM MUNICIPAL ENGINEER 25 mcg 25 mcg, intravenous, Every 2 min PRN, For pain 4 or greater (maximum 100 mcg). If max dose of Fentanyl is reached and if pain is greater than 4, discontinue Fentanyl: give Hydromorphone, Starting on Tue12/07/19 at 1145, Pre-Op lactated ringers New Bag 12/07/2019 12:39 PM MUNICIPAL ENGINEER intravenous, Continuous Infusion: Per Instructions PRN, Starting on Tue12/07/19 at 1239, Anesthesia Intra-op lidocaine (PF) (cardiac) injection Given 12/07/2019 12:40 PM MUNICIPAL ENGINEER 100 mg intravenous, As needed, Starting on Tue12/07/19 at 1240, Anesthesia Intra-op ondansetron (PF) injection (ZOFRAN) Given 12/07/2019 1:57 PM MUNICIPAL ENGINEER 4 mg intravenous, As needed, Starting on Tue12/07/19 at 1357, Anesthesia Intra-op phenylephrine injection Given 12/07/2019 12:50 PM MUNICIPAL ENGINEER 100 mcg intravenous, As needed, Starting on Tue12/07/19 at 1246, Anesthesia Intra-op Given 12/07/2019 12:48 PM MUNICIPAL ENGINEER 100 mcg Given 12/07/2019 12:46 PM MUNICIPAL ENGINEER 100 mcg propofol 10 mg/mL infusion Rate/Dose 12/07/2019 75 mcg/kg/min 34.4 m L/hr (DIPRIVAN) Change 12:46 PM MUNICIPAL ENGINEER intravenous, Continuous Infusion: Per Instructions PRN, Starting on Tue12/07/19 at 1241, Anesthesia Intra-op New Bag 12/07/2019 12:41 PM MUNICIPAL ENGINEER 250 mcg/kg/min 115 mL/hr propofol injection (DIPRIVAN) Given 12/07/2019 12:42 PM MUNICIPAL ENGINEER 100 mg intravenous, As needed, Starting on Tue12/07/19 at 1242, Anesthesia Intra-op remifentanil 20 mcg/mL in Rate/Dose 12/07/2019 1:43 0.1 mcg/kg/min 2 2.9 mL/hr NaCl 0.9% 100 mL infusion Change PM MUNICIPAL ENGINEER (ULTIVA) Continuous Infusion: Per Instructions PRN, Starting on Tue12/07/19 at 1246, Anesthesia Intra-op Rate/Dose Change 12/07/2019 12:53 PM MUNICIPAL ENGINEER 0.2 mcg/kg/min 45.8 mL/hr New Bag 12/07/2019 12:46 PM MUNICIPAL ENGINEER 0.25 mcg/kg/min 57.3 mL/hr succinylcholine (PF) injection (ANECTINE ) Given 12/07/2019 12:42 PM MUNICIPAL ENGINEER 10 mg intravenous, As needed, Starting on Tue12/07/19 at 1242, Anesthesia Intra-op vancomycin in NaCl 0.9% IVPB 1,250 mg Given 12/07/2019 12:51 PM MUNICIPAL ENGINEER 1.25 g 1,250 mg (rounded from 1,146 [...]
--- OUTSIDE RECORDS SUMMARY | 2022-09-14 12:08 | XMS_ITS | Encounter Summary ---
:1965 Author Organization [facility] Address [address] [place] [address] Care Team Providers Name Role Phone Unavailable [...] you attend scientologist or Patient refused 2021 episcopal services? Do [...] 01/08/2020 3:15 Results for this EXAM PM HAND EXPANSION ENVELOPE MAKER procedure are i n the results section. documented in this encounter Results NOSE-Otorhinolaryngology Image Exam (01/08/2020 3:15 PM HAND EXPANSION ENVELOPE MAKER) Specimen (Source) Anatomical Collection Method Collection Time Re ceived Time Location / / Volume Laterality 01/08/2020 3:11 PM HAND EXPANSION ENVELOPE MAKER Narrative [facility] - 01/08/2020 3:29 PM HAND EXPANSION ENVELOPE MAKER This order has been created and [...]
--- OUTSIDE RECORDS SUMMARY | 2022-09-14 12:08 | XMS_ITS | Encounter Summary ---
:1965 Author Organization [facility] Address [address] [place] [address] Care Team Providers Name Role Phone Unavailable Primary Care Provider Unavailable Encounter Details Date Type Department Care Team Description 12/07/2019 Surgery RST ROMB [facility] OR Darlin Olmedo, SINUSOTOMY ENDOSCOPY [address] [facility] [place] [address] [address] [place] [address] [place] [phone] Social History Tobacco Use Types Packs/Day Years [...] you attend faith or Patient refused 2021 anglican services? Do [...] daily with a saline sinus rinse kit (jsoe ramon Dalal or [place]). - Follow the directions on the bottle [...] clinic or with another department at [facility], an appointment willbe made for you. If you have not received specific details (date, time, location) within 2 weeks of discharge, please contact our office at [phone] to inquire. If you are to follow up somewhere other than [facility], please schedule this appointment (in the timeframe recommended by your surgeon)at your earliest convenience. CONTACT INFORMATION: If you need to reach the Department of ENT at the [facility] regarding any questions during normal business hours, please call . If you are calling after normal business hours and have a concern that needs to be addressed urgently, please call the [facility] Supervisor [place] at and ask to speak to the ENT resident community support professional. SURANCE ANALYST AttachmentsThe following attachments cannot be sent through Care Everywhere.Your Scopolamine Patch (Guyanese)documented in this encounter Medications at Time of [...] Extradural computer navigation was registered according to cake puller's guidelines and confirmed to be accurate within [...] 5 mL Implants None Darlin Olmedo M.D. SURANCE ANALYST Brief Op Note - Jey Santana [...] Loss None Implants None Jey Santana M.D. SURANCE ANALYST documented in this encounter Plan of Treatment Not on filedocumented as of this encounter Procedures Procedure Name Priority Date/Time Associated Diagnosis Comme nts ADULT OXYGEN THERAPY Routine 12/07/2019 2:30 PM REINSURANCE ANALYST EXTRADURAL COMPUTER 12/07/2019 12:13 PM Rhinosin usitis Chronic NAVIGATION REINSURANCE ANALYST Mucocele Nasal Sinus Case Notes LOCKET MAKER 10:37 SINUSOTOMY ENDOSCOPY 12/07/2019 12:13 PM REINSURANCE ANALYST Rhi nosinusitis Chronic FRONTAL Mucocele Nasal Sinus Case Notes LOCKET MAKER 10:37 documented in this encounter Visit Diagnoses Diagnosis Rhinosinusitis Chronic Mucocele Nasal Sinus documented in this encounter Administered Medications Inactive Administered Medications - up to 3 most recent administrations Medication Order MAR Action Action Date Dose Rate Site acetaminophen injection 1,000 New Bag 12/07/2019 2:38 PM 1,000 mg 400 mL/hr mg (OFIRMEV) REINSURANCE ANALYST 1,000 mg, intravenous, at 400 mL/hr, [...] 1,000 mg (TYLENOL) Given 12/07/2019 12:06 PM REINSURANCE ANALYST 1,000 mg 1,000 mg, oral, Once, On Tue12/07/19 at 1200, For 1 dose, Pre-Op aprepitant capsule 40 mg (EMEND) Given 12/07/2019 12:06 PM REINSURANCE ANALYST 40 mg 40 mg, oral, Once as needed, prevent ponv, Starting on Tue12/07/19 at 1145, For 1 dose, Pre-Op caffeine tablet 200 mg Given 12/07/2019 12:06 PM REINSURANCE ANALYST 200 mg 200 mg, oral, Once as needed, pre-op to prevent caffeine withdrawal headache or to enhance emergence from anesthesia/sedation, Starting on Tue12/07/19 at 1145, For 1 dose, Pre-Op, With sips cocaine 4 % external solution Given 12/07/2019 1:10 PM REINSURANCE ANALYST 4 mL Other As needed, Starting on Tue12/07/19 at 1310, Intra-Op droperidol injection 0.625 mg (INAPSINE) Given 12/07/2019 2:37 PM REINSURANCE ANALYST 0.625 mg 0.625 mg, intravenous, Every [...] 25 mcg (SUBLIMAZE) Given 12/07/2019 2:32 PM REINSURANCE ANALYST 25 mcg 25 mcg, intravenous, Every 2 min PRN, For pain 4 or greater (maximum 100 mcg). If max dose of Fentanyl is reached and if pain is greater than 4, discontinue Fentanyl: give Hydromorphone, Starting on Tue12/07/19 at 1145, Pre-Op ketamine injection 10 mg (KETALAR) Given 12/07/2019 2:37 PM REINSURANCE ANALYST 10 mg 10 mg, intravenous, Once as needed, Pain sedation mismatch AND RASS score less than -1, Starting on Tue12/07/19 at 1430, For 1 dose, PACU (only) lactated ringers New Bag 12/07/2019 3:48 PM REINSURANCE ANALYST 20 mL/hr 20 mL/hr 20 mL/hr, intravenous, Continuous, Starting on Tue12/07/19 at 1400, PACU & Post-Op Continued from OR 12/07/2019 2:25 PM REINSURANCE ANALYST 20 mL/hr 20 mL/hr lidocaine-EPINEPHrine 1 %-1:100,000 Given 12/07/2019 1:45 PM REINSURANCE ANALYST 2 mL Other injection (XYLOCAINE W/EPI) As needed, Starting on Tue12/07/19 at 1320, Intra-Op Given 12/07/2019 1:20 PM REINSURANCE ANALYST 1.5 mL Other metoprolol tablet 12.5 mg [...] 2 mg (VERSED) Given 12/07/2019 12:28 PM REINSURANCE ANALYST 2 mg 2 mg, intravenous, Once as needed, anxiety, sedation, Starting on Tue12/07/19 at 1145, For 1 dose, Pre-Op ondansetron ODT disintegrating tablet 4 mg Given 12/07/2019 12:0 7 PM REINSURANCE ANALYST 4 mg (ZOFRAN-ODT) 4 mg, sublingual, Once, On Tue12/07/19 at 1200, For 1 dose, Pre-Op, When splitting ODT at bedside, handle with gloves and a pill splitter to prevent moisture contact. oxymetazoline 0.05 % nasal spray Given 12/07/2019 1:42 PM REINSURANCE ANALYST 1 application (AFRIN) As needed, Starting on Tue12/07/19 at 1342, Intra-Op scopolamine base 1 mg Medication Applied 12/07/2019 12:11 PM 1 patch Behind Right over 3 days 1 patch REINSURANCE ANALYST Ear (TRANSDERM SCOP) 1 patch, transdermal, [...] Recently Administered Medications Times are shown in REINSURANCE ANALYST. Scheduled Medication Order 12/05/2019 12/06/2019 12/07/2019 [...] (COMPLETED) 1251 (Given - Provider: Gini Garcia, AGRICULTURE WORKER, FORK ASSEMBLER) 1,250 mg (rounded from 1,146 mg = [...]
--- OUTSIDE RECORDS SUMMARY | 2022-09-14 12:08 | XMS_ITS | Encounter Summary ---
:1965 Author Organization [facility] Address [address] [place] [address] Care Team Providers Name Role Phone Unavailable [...] you attend sabianism or Patient refused 2021 taoist services? Do [...] 12/07/2019 12:15 Results for this EXAM PM GAS METER PROVER procedure are i n the results section. documented in this encounter Results NOSE-Otorhinolaryngology Image Exam (12/07/2019 12:15 PM GAS METER PROVER) Specimen (Source) Anatomical Collection Method Collection Time Re ceived Time Location / / Volume Laterality 12/07/2019 12:15 PM GAS METER PROVER Narrative IIMS - 12/07/2019 2:07 PM GAS METER PROVER This order has been created and auto-finalized [...]
--- OUTSIDE RECORDS SUMMARY | 2022-09-14 12:08 | XMS_ITS | Encounter Summary ---
:1965 Author Organization [facility] Address [address] [place] [address] Care Team Providers Name Role Phone Unavailable Primary Care Provider Unavailable Encounter Details Date Type Department Care Team Description 09/15/2020 Ancillary Procedure Department of Robert Diehl Aneurysm Radiology jimmy Celaya M.D. Nonruptured (HCC) [place], [place] [address] [facility] [address] [place] [phone] Social History Tobacco Use Types Packs/Day Years [...] you attend adventism or Patient refused 2021 denominational services? Do [...] nt right vertebral artery. RADHA, MCA, and delivery coordinator are patent. Neck MRA: Conventional three-vessel [...] nt right vertebral artery. RADHA, MCA, and delivery coordinator are patent. Neck MRA: Conventional three-vessel [...]
--- OUTSIDE RECORDS SUMMARY | 2022-09-14 12:08 | XMS_ITS | Encounter Summary ---
:1965 Author Organization [facility] Address [address] [place] [address] Care Team Providers Name Role Phone Unavailable Primary Care Provider Unavailable Reason for Referral MRI/CAT/PET Scan (Routine) - Closed Specialty Diagnoses / Procedures Referred By Contact Refer red To Contact Radiology Diagnoses Ataxia Robert Fowler M.D. [facility] Procedures CT Head Neck Angiogram with IV Contrast [address] [place] [address] Referral ID Status Reason Start Date Expiration Date Visits Requ ested Visits Authorized [id number] Closed 12/31/2020 12/31/2021 1 1 DING WHEEL INSPECTOR Outpatient (Routine) - Closed Specialty Diagnoses / Procedures Referred By Contact Refer red To Contact Video Medicine Diagnoses Stroke Cerebrovascular Accident Personal History Robert Fowler [facility] Margot Quintana [address] [place] [address] Referral ID Status Reason Start Date Expiration Date Visits Requ ested Visits Authorized [id number] Closed 12/30/2020 12/30/2021 1 1 DING WHEEL INSPECTOR MRI/CAT/PET Scan (Routine) - Closed Specialty Diagnoses / Procedures Referred By Contact Refer red To Contact Radiology Diagnoses Ataxia Robert Fowler M.D. [facility] Procedures CT Head Neck Angiogram with IV Contrast [address] [place] [address] Referral ID Status Reason Start Date Expiration Date Visits Requ ested Visits Authorized [id number] Closed 12/30/2020 12/30/2021 1 1 DING WHEEL INSPECTOR MRI/CAT/PET Scan (Routine) - Closed Specialty Diagnoses / Procedures Referred By Contact Refer red To Contact Radiology Diagnoses Stroke Cerebrovascular Accident Personal History Robert Fowler M.D. [place] [facility] Procedures CT Head without IV Contrast [address] [place] [address] Referral ID Status Reason Start Date Expiration Date Visits Requ ested Visits Authorized [id number] Closed 12/30/2020 12/30/2021 1 1 DING WHEEL INSPECTOR Reason for Visit Reason Comments Symptom Assessment Encounter Details Date Type Department Care Team Description 12/22/2020 Clinical Communication Department of Robert Fowler mptom Assessment Neurology jimmy Celaya M.D. [place], [address] [place], [place] [address] [facility] [address] [place], [place] [phone] (Work) [phone] Social History Tobacco Use Types Packs/Day Years [...] you attend sikh or Patient refused 2021 islam services? Do [...] Robert Fowler M.D. - 12/31/2020 5:17 PM GRINDING WHEEL INSPECTOR Addended by: ROBERT FOWLER on: 12/31/2020 05:17 PM Modules accepted: Orders DING WHEEL INSPECTOR Addendum Note - Robert Fowler M.D. - 12/30/2020 8:34 AM GRINDING WHEEL INSPECTOR Addended by: ROBERT FOWLER on: 12/30/2020 08:34 AM Modules accepted: Orders DING WHEEL INSPECTOR Telephone Encounter - Zuly Alex R.N. - 12/29/2020 4:48 PM CST The patient telephones back today. She did present to the local ED in [place] for evaluation of her vertigo. She shares [...] to get in contact with her [facility] neurologist. The patient reports that at her [...] 911 or have someone drive her to [facility] as well. She agrees to call 911 for recurrent episodes. RECOMMENDED LEVEL OF CARE. The patient/caller is willing and able to follow the nurse's recommendation. RESPONSE TO ADVICE GIVEN. Patient/caller able to teach back. REFERENCES UTILIZED. Nursing clinical judgment utilized. Other interventions or information: Provider advice. TYPE OF PHONE CALL. Symptom assessment. DING WHEEL INSPECTOR Telephone Encounter - Robert Fowler M.D. - [...] by: Robert Fowler M.D. 12/23/20 8:21 AM GRINDING WHEEL INSPECTOR DING WHEEL INSPECTOR Telephone Encounter - Zuly Alex R.N. - 12/22/2020 5:25 PM CST 5:17 pm. Tried calling to assure she could reach her son to take her to the ED. No answer. DING WHEEL INSPECTOR Telephone Encounter - Zuly Alex R.N. - [...] her to the nearest emergency room or [id number]. She expressed concerns about going to the [...] the nearest ED which would be in [place]. He did not answer. I offered to [...] advice. TYPE OF PHONE CALL. Symptom assessment. DING WHEEL INSPECTOR Telephone Encounter - Robert Fowler M.D. - 12/22/2020 3:29 PM CST Please call patient in triage whether she needs to be seen in the local emergency department for concern of acute stroke? DING WHEEL INSPECTOR documented in this encounter Plan of Treatment Scheduled Referrals Name Type Priority Associated Diagnoses Order S chedule Video anyplace Outpatient Referral Routine Stroke Cerebrovascu lar Expected: visit Accident Personal 12/30/2020 , History Expires: 12/30/2023 documented as of this encounter Results CT Head Neck Angiogram with IV Contrast (01/30/2021 3:24 PM GRINDING WHEEL INSPECTOR) Anatomical Region Laterality Modality Head and Neck, Neuroradiology RST LOS, N/A C omputed Tomography, Computed Neuroradiology ARZ LOS, Neuroradiology T omography FLA LOS Specimen (Source) Anatomical Collection Method Collection Time Re ceived Time Location / / Volume Laterality 01/30/2021 2:25 PM GRINDING WHEEL INSPECTOR Impressions 01/30/2021 3:18 PM GRINDING WHEEL INSPECTOR 1. 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 Slightly decreased high-grade stenosis a t the V3/4 junction with increased flow in the distal V4 segment. 2. Evolving, now chronic right cerebella r infarct. 3. 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 Narrative 01/30/2021 3:18 PM GRINDING WHEEL INSPECTOR EXAM: CT HEAD NECK ANGIOGRAM WITH IV [...] normal caliber bilater al MCAs, ACAs and credit risk specialist. Patent anterior and right posterior communicating arteri es. Diminutive left posterior communicating artery. Encephalomalacia medial left occipital l obe. Normal caliber ventricles. Postoperative changes both globes. Bilat eral maxillary antrostomies. Aplastic frontal sinuses. Well-aerated mastoid ai r cells. Posterior cervicothoracic spine fusion. Reverse left TSA. Spinal stimula tor leads terminate at the thoracic spine. Procedure Note Ju Lrason M.D. - 01/30/2021Forma tting of this note [...] normal caliber bilater al MCAs, ACAs and credit risk specialist. Patent anterior and right posterior communicating [...] para clinoid aneurysms. Authorizing Provider Result [place] Fowler M.D. IMG CT PROCEDURES CT Head Neck Angiogram with IV Contrast (12/31/2020 3:34 PM GRINDING WHEEL INSPECTOR) Anatomical Region Laterality Modality Head and Neck, Neuroradiology RST LOS, N/A C omputed Tomography, Computed Neuroradiology ARZ LOS, Neuroradiology T omography FLA LOS Specimen (Source) Anatomical Collection Method Collection Time Re ceived Time Location / / Volume Laterality 12/31/2020 3:49 PM GRINDING WHEEL INSPECTOR Impressions 12/31/2020 4:54 PM GRINDING WHEEL INSPECTOR 1. Evolving right cerebellar infarct with decreased [...] oid ICA aneurysms. Narrative 12/31/2020 4:54 PM GRINDING WHEEL INSPECTOR EXAM: CT HEAD WITHOUT IV CONTRAST, CT [...] Findings discussed with ordering physicDr. Fazal crandall ([id number]) at 4:54 PM on 12/31/2020. Procedure Note [...] Findings discussed with ordering physici anDr. Fowler ([id number]) at 4:54 PM on 12/31/2020. IMPRESSION: 1. [...] Head without IV Contrast (12/31/2020 3:34 PM GRINDING WHEEL INSPECTOR) Anatomical Region Laterality Modality Head, Neuroradiology RST LOS, N/A Computed T omography, Computed Neuroradiology ARZ LOS, Neuroradiology T omography FLA LOS Specimen (Source) Anatomical Collection Method Collection Time Re ceived Time Location / / Volume Laterality 12/31/2020 3:49 PM GRINDING WHEEL INSPECTOR Impressions 12/31/2020 4:54 PM GRINDING WHEEL INSPECTOR 1. Evolving right cerebellar infarct with decreased [...] oid ICA aneurysms. Narrative 12/31/2020 4:54 PM GRINDING WHEEL INSPECTOR EXAM: CT HEAD WITHOUT IV CONTRAST, CT [...] discussed with ordering physici Dr. Fazal abbasi ([id number]) at 4:54 PM on 12/31/2020. Procedure Note [...] Findings discussed with ordering physicDr. Fazal crandall ([id number]) at 4:54 PM on 12/31/2020. IMPRESSION: 1. [...] paraclinoid and supraclin oid ICA aneurysms. Robert Fowler M.D. IMGeronimo CT PROCEDURES documented in this encounter Visit Diagnoses Diagnosis Stroke Cerebrovascular Accident Personal History - Primary Ataxia Stroke Cerebrovascular Accident Personal History Ataxia Ataxia documented in this encounter Additional Health Concerns Assessment Noted Time PHQ-9 Depression Total Score: 5 04/05/2019 8:00 AM CDT documented as of this encounter
--- OUTSIDE RECORDS SUMMARY | 2022-09-14 12:08 | XMS_ITS | Encounter Summary ---
:1965 Author Organization [facility] Address [address] [place] [address] Care Team Providers Name Role Phone Unavailable Primary Care Provider Unavailable Encounter Details Date Type Department Care Team Description 12/08/2019 Documentation Department of Darlin Olmedo, Otorhinolaryngology in .[place], [place] [address] [place] [address] 200 [place] [phone] Social History Tobacco Use Types Packs/Day Years [...] you attend bahai or Patient refused 2021 congregation services? 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 Additional doses of oxycodone not sufficient for [...] she is currently having. -Dr. Clemente Medley SETTING OUT MACHINE OPERATOR documented in this encounter Plan of Treatment Not on filedocumented as of this encounter Visit Diagnoses Not on filedocumented in this encounter Additional Health Concerns Assessment Noted Time PHQ-9 Depression Total Score: 5 04/05/2019 8:00 AM CDT documented as of this encounter
--- OUTSIDE RECORDS SUMMARY | 2022-09-14 12:08 | XMS_ITS | Encounter Summary ---
:1965 Author Organization [facility] Address [address] [place] [address] Care Team Providers Name Role Phone Unavailable Primary Care Provider Unavailable Encounter Details Date Type Department Care Team Description 12/06/2019 Clinical Communication Department of Robert Diehl, Neurology in .. [place], [place] 200 [facility] 200 [place] [phone] Social History Tobacco Use Types Packs/Day Years [...] you attend sikh or Patient refused 2021 mandaeism services? Do [...] during her next visit. Janis Preston R.N. END PYTHON DEVELOPER Telephone Encounter - Janis Preston R.N. - 12/06/2019 1:35 PM CST ----- Message from Robert Diehl M.D. sent at 12/03/2019 10:17 AM BACKEND PYTHON DEVELOPER ----- Regarding: FW: Overnight oximetry Good morning Would you be able to reach out and let this patient know the oximetry was unsuccessful and would need to be repeated and ask if they would like to do this? Thank you! Electronically signed by: Robert Diehl M.D. 12/03/19 10:18 AM BACKEND PYTHON DEVELOPER ----- Message ----- From: Carolynn Stokes Sent: 11/29/2019 2:39 PM BACKEND PYTHON DEVELOPER To: Robert Diehl M.D. Subject: Overnight oximetry Your patients overnight oximetry test did not have recorded data of sufficient duration for an interpretation to be completed and was returned four months after appointment. Therefore an overnight oximetry report will not be generated to [facility]. Please contact your clinical assistant director of admissions to reschedule an overnight oximetry test if you wish the patient to repeat an overnight oximetry test. END PYTHON DEVELOPER documented in this encounter Plan of [...] Organization Address City/State/ZIP Code Phon e Number [place] [facility] documented in this encounter Visit Diagnoses Diagnosis Fatigue - Primary Fatigue documented in this encounter Additional Health Concerns Assessment Noted Time PHQ-9 Depression Total Score: 5 04/05/2019 8:00 AM CDT documented as of this encounter
--- OUTSIDE RECORDS SUMMARY | 2022-09-14 12:08 | XMS_ITS | Encounter Summary ---
:1965 Author Organization [facility] Address [address] [place] [address] Care Team Providers Name Role Phone Unavailable Primary Care Provider Unavailable Encounter Details Date Type Department Care Team Description 12/07/2019 Hospital Encounter RST ROMB MAIN OR Darlin Olmedo, [address] [facility] [place] [address] [address] [place] [address] [place] [address] Social History Tobacco Use Types [...] you attend baptism or Patient refused 2021 bahai services? Do [...] Comments Blood Pressure 114/72 12/07/2019 3:30 PM NEWS LIBRARIAN Pulse 75 12/07/2019 4:25 PM NEWS LIBRARIAN Temperature 36.5 ??C (97.7 ??F) 12/07/2019 2:32 PM NEWS LIBRARIAN Respiratory Rate 15 12/07/2019 4:25 PM NEWS LIBRARIAN Oxygen Saturation 94% 12/07/2019 4:25 PM NEWS LIBRARIAN Inhaled Oxygen Concentration - - Weight - [...] daily with a saline sinus rinse kit ([employer] or [place]). - Follow the directions on the bottle [...] our clinic or with another department at [facility], an appointment willbe made for you. If you have not received specific details (date, time, location) within 2 weeks of discharge, please contact our office at [phone] to inquire. If you are to follow up somewhere other than [facility], please schedule this appointment (in the timeframe recommended by your surgeon)at your earliest convenience. CONTACT INFORMATION: If you need to reach the Department of ENT at the [facility] regarding any questions during normal business hours, please call . If you are calling after normal business hours and have a concern that needs to be addressed urgently, please call the [facility] Logistics Associate at and ask to speak to the ENT resident relationship assoc. LIBRARIAN AttachmentsThe following attachments cannot be sent through Care Everywhere.Your Scopolamine Patch (Bengali)documented in this encounter Medications at Time of [...] Extradural computer navigation was registered according to thermal cutting tracer machine operator's guidelines and confirmed to be accurate [...] 5 mL Implants None Darlin Olmedo M.D. LIBRARIAN Brief Op Note - Jey Santana M.D. [...] Loss None Implants None Jey Santana M.D. 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 CARBIDE TOOL DIE MAKER 10:37 documented in this encounter Visit Diagnoses Not on filedocumented in this encounter Administered Medications Inactive Administered Medications - up to 3 most recent administrations Medication Order MAR Action Action Date Dose Rate Site acetaminophen injection 1,000 New Bag 12/07/2019 2:38 PM 1,000 mg 400 mL/hr mg (OFIRMEV) NEWS LIBRARIAN 1,000 mg, intravenous, at 400 mL/hr, Administer [...] 1,000 mg (TYLENOL) Given 12/07/2019 12:06 PM NEWS LIBRARIAN 1,000 mg 1,000 mg, oral, Once, On Tue12/07/19 at 1200, For 1 dose, Pre-Op aprepitant capsule 40 mg (EMEND) Given 12/07/2019 12:06 PM NEWS LIBRARIAN 40 mg 40 mg, oral, Once as needed, prevent ponv, Starting on Tue12/07/19 at 1145, For 1 dose, Pre-Op caffeine tablet 200 mg Given 12/07/2019 12:06 PM NEWS LIBRARIAN 200 mg 200 mg, oral, Once as needed, pre-op to prevent caffeine withdrawal headache or to enhance emergence from anesthesia/sedation, Starting on Tue12/07/19 at 1145, For 1 dose, Pre-Op, With sips droperidol injection 0.625 mg (INAPSINE) Given 12/07/2019 2:37 PM NEWS LIBRARIAN 0.625 mg 0.625 mg, intravenous, Every 6 [...] 25 mcg (SUBLIMAZE) Given 12/07/2019 2:32 PM NEWS LIBRARIAN 25 mcg 25 mcg, intravenous, Every 2 min PRN, For pain 4 or greater (maximum 100 mcg). If max dose of Fentanyl is reached and if pain is greater than 4, discontinue Fentanyl: give Hydromorphone, Starting on Tue12/07/19 at 1145, Pre-Op ketamine injection 10 mg (KETALAR) Given 12/07/2019 2:37 PM NEWS LIBRARIAN 10 mg 10 mg, intravenous, Once as needed, Pain sedation mismatch AND RASS score less than -1, Starting on Tue12/07/19 at 1430, For 1 dose, PACU (only) lactated ringers New Bag 12/07/2019 3:48 PM NEWS LIBRARIAN 20 mL/hr 20 mL/hr 20 mL/hr, intravenous, Continuous, Starting on Tue12/07/19 at 1400, PACU & Post-Op Continued from OR 12/07/2019 2:25 PM NEWS LIBRARIAN 20 mL/hr 20 mL/hr metoprolol tablet 12.5 [...] 2 mg (VERSED) Given 12/07/2019 12:28 PM NEWS LIBRARIAN 2 mg 2 mg, intravenous, Once as needed, anxiety, sedation, Starting on Tue12/07/19 at 1145, For 1 dose, Pre-Op ondansetron ODT disintegrating tablet 4 mg Given 12/07/2019 12:0 7 PM NEWS LIBRARIAN 4 mg (ZOFRAN-ODT) 4 mg, sublingual, Once, On Tue12/07/19 at 1200, For 1 dose, Pre-Op, When splitting ODT at bedside, handle with gloves and a pill splitter to prevent moisture contact. scopolamine base 1 mg Medication Applied 12/07/2019 12:11 PM 1 patch Behind Right over 3 days 1 patch NEWS LIBRARIAN Ear (TRANSDERM SCOP) 1 patch, transdermal, Administer [...] Recently Administered Medications Times are shown in NEWS LIBRARIAN. Scheduled Medication Order 12/05/2019 12/06/2019 12/07/2019 acetaminophen [...] (COMPLETED) 1251 (Given - Provider: Gini Garcia, NUMERICAL CONTROL LATHE OPERATOR, SATELLITE TV TECHNICIAN) 1,250 mg (rounded from 1,146 mg = [...] cc)1548 (New Bag - Provider: Jerica Uribe RBetsy)1645 (Stopped - Provider: Jerica Uribe R.N.) 20 [...] 1206 (Given - Provider: Steph Gallo R.N.) 200 mg, oral, Once as needed, pre-op [...] 1211 (Medication Applied - Provider: Steph Gallo R.N.)0053 (Due: Medication Removed - Provider: Discharge Provider, [...]
--- OUTSIDE RECORDS SUMMARY | 2022-09-14 12:08 | XMS_ITS | Encounter Summary ---
:1965 Author Organization [facility] Address [address] [place] [address] Care Team Providers Name Role Phone Unavailable [...] you attend temple or Patient refused 2021 temple services? Do [...] 12/18/2019 1:57 Results for this EXAM PM LEARNING SUPPORT TEACHER procedure are i n the results section. documented in this encounter Results NOSE-Otorhinolaryngology Image Exam (12/18/2019 1:57 PM LEARNING SUPPORT TEACHER) Specimen (Source) Anatomical Collection Method Collection Time Re ceived Time Location / / Volume Laterality 12/18/2019 1:57 PM LEARNING SUPPORT TEACHER Narrative IIMS - 12/18/2019 1:57 PM LEARNING SUPPORT TEACHER This order has been created and auto-finalized [...]
--- OUTSIDE RECORDS SUMMARY | 2022-09-14 12:08 | XMS_ITS | Encounter Summary ---
:1965 Author Organization [facility] Address [address] [place] [address] Care Team Providers Name Role Phone Unavailable Primary Care Provider Unavailable Reason for Visit Outpatient (Routine) - Closed Specialty Diagnoses / Procedures Referred By Contact Refer red To Contact Otorhinolaryngology Darlin Olmedo M.D . [facility] [address] [place] [phone] Referral ID Status Reason Start Date Expiration Date Visits Requ ested Visits Authorized [id number] Closed 12/18/2019 12/17/2020 1 1 Encounter Details Date Type Department Care Team Description 01/08/2020 Office Visit Department of Darlin Olmedo Mucocele Nasa l Sinus Otorhinolaryngology jimmy Brumfield M.D. (Primary Dx) [address] [place] [phone] Social History Tobacco Use Types [...] you attend gnosticism or Patient refused 2021 alevism services? Do you belong to any clubs or No 05/17/2022 organizations such as gnosticism groups, unions, frabewarket or athletic groups, or school groups? How [...] will continue saline irrigations and Flonase. K DRIVER INSTRUCTOR Associated attestation - Darlin Olmedo M.D. - 01/16/2020 5:45 PM TRUCK DRIVER INSTRUCTOR I saw and evaluated the patient, participating [...]
--- OUTSIDE RECORDS SUMMARY | 2022-09-14 12:08 | XMS_ITS | Encounter Summary ---
:1965 Author Organization [facility] Address [address] [place] [address] Care Team Providers Name Role Phone Unavailable Primary Care Provider Unavailable Reason for Visit Reason Comments Michel Encounter Details Date Type Department Care Team Description 09/04/2020 Clinical Communication Department of Robert Diehl W8B/Scharf Neurology in [place], [place] [address] [place] [address] 200 [place] [phone] Social History Tobacco Use Types Packs/Day Years [...] you attend christianity or Patient refused 2021 christianity services? Do [...]
--- OUTSIDE RECORDS SUMMARY | 2022-09-14 12:08 | XMS_ITS | Encounter Summary ---
:1965 Author Organization [facility] Address [address] [place] [address] Care Team Providers Name Role Phone Unavailable Primary Care Provider Unavailable Reason for Visit Reason Comments shyam Encounter Details Date Type Department Care Team Description 07/29/2020 Clinical Communication Department of Robert Diehl w8b/scharf Neurology in [place], [place] [address] [place] [address] 200 [place] [phone] Social History Tobacco Use Types Packs/Day Years [...] for magnetic resonance angiogram be sent to [place]. José Miguel advise what the exact testing [...]
--- OUTSIDE RECORDS SUMMARY | 2022-09-14 12:08 | XMS_ITS | Encounter Summary ---
:1965 Author Organization [facility] Address [address] [place] [address] Care Team Providers Name Role Phone Unavailable Primary Care Provider Unavailable Reason for Referral Outpatient (Routine) - Closed Specialty Diagnoses / Procedures Referred By Contact Clyde bains To Contact Neurology Robert Diehl M. D. [facility] [address] [place] [address] Referral ID Status Reason Start Date Expiration Date Visits Requ ested Visits Authorized [id number] Closed 09/15/2020 09/15/2021 1 1 Reason for Visit Appointment Request (Routine) - Closed Specialty Diagnoses / Procedures Referred By Contact Clyde bains To Contact Neurology Referral ID Status Reason Start Date Expiration Date Visits Requ ested Visits Authorized [id number] Closed 07/31/2020 07/31/2021 1 1 Encounter Details Date Type Department Care Team Description 09/15/2020 Virtual Visit Department of Robert Diehl Berry An eurysm Nonruptured (HCC) (Primary Dx); Neurology in M.D. Nicotine Dependence ; [place], [place] [address] [facility] Aneurysm Cerebral Unruptured (HCC) [address] [place] [phone] Social History Tobacco Use Types Packs/Day Years [...] you attend mormonism or Patient refused 2021 sikhism services? Do [...] via the telephone and not in a [id number]-[id number]-iwgo manner. Ms. Mosquera is a 55-year-old woman [...] Type Priority Associated Diagnoses Order [facility] Neurology office Outpatient Referral Routine Expe [...] nt right vertebral artery. RADHA, MCA, and electric meter technician are patent. Neck MRA: Conventional three-vessel arch [...] nt right vertebral artery. RADHA, MCA, and electric meter technician are patent. Neck MRA: Conventional three-vessel arch [...]
--- OUTSIDE RECORDS SUMMARY | 2022-09-14 12:08 | XMS_ITS | Encounter Summary ---
:1965 Author Organization [facility] Address [address] [place] [address] Care Team Providers Name Role Phone Unavailable Primary Care Provider Unavailable Encounter Details Date Type Department Care Team Description 08/05/2020 Clinical Communication Department of Honorio, Otorhinolaryngology in [place], [place] [address] [place], [place] [phone] [facility] [phone] [place] [phone] Social History Tobacco Use Types Packs/Day Years [...] you attend holiness or Patient refused 2021 yazdanism services? Do [...] called patient to schedule COVID testing at [place] prior to appointment. Didn't answer so jessica [...]
--- OUTSIDE RECORDS SUMMARY | 2022-09-14 12:08 | XMS_ITS | Encounter Summary ---
:1965 Author Organization [facility] Address [address] [place] [address] Care Team Providers Name Role Phone Unavailable Primary Care Provider Unavailable Reason for Referral Outpatient (Routine) - Closed Specialty Diagnoses / Procedures Referred By Contact Refer red To Contact Otorhinolaryngology Darlin Olmedo M.D . [address] [address] Referral ID Status Reason Start Date Expiration Date Visits Requ ested Visits Authorized [id number] Closed 12/18/2019 12/17/2020 1 1 YBOAT HELPER Reason for Visit Outpatient (Routine) - Closed Specialty Diagnoses / Procedures Referred By Contact Refer red To Contact Otorhinolaryngology Darlin Olmedo M.D . [address] [address] Referral ID Status Reason Start Date Expiration Date Visits Requ ested Visits Authorized [id number] Closed 11/29/2019 11/28/2020 1 1 Encounter Details Date Type Department Care Team Description 12/18/2019 Office Visit Department of Darlin Olmedo Mucocele Nasa l Sinus Otorhinolaryngology jimmy Brumfield M.D. (Primary Dx) [address] [place] [phone] Social History Tobacco Use Types Packs/Day Years [...] you attend worship or Patient refused 2021 buddhism services? Do [...] we will refer to neurology headache clinic. YBOAT HELPER documented in this encounter Plan of [...]
--- OUTSIDE RECORDS SUMMARY | 2022-09-14 12:08 | XMS_ITS | Encounter Summary ---
:1965 Author Organization [facility] Address [address] [place] [address] Care Team Providers Name Role Phone Unavailable Primary Care Provider Unavailable Encounter Details Date Type Department Care Team Description 08/06/2020 Clinical Communication Department of Honorio, Otorhinolaryngology in [place], [place] [address] [place] [address] [facility] [phone] [place] [phone] Social History Tobacco Use Types Packs/Day Years [...] you attend zoroastrianism or Patient refused 2021 judaism services? Do [...] states that she had them done at [facility]. I called the facility and [...] she had a CT Scan today in [place]. If her doctor there feels she needs [...]
--- OUTSIDE RECORDS SUMMARY | 2022-09-14 12:08 | XMS_ITS | Encounter Summary ---
:1965 Author Organization [facility] Address [address] [place] [address] Care Team Providers Name Role Phone Unavailable Primary Care Provider Unavailable Reason for Visit Reason Onset Date Comments Medication Question 01/08/2020 Encounter Details Date Type Department Care Team Description 01/08/2020 Clinical Department of [place], Medication Communication Otorhinolaryngology in [place], [place]ian [address] [place] [address] [place] [phone] [place] [address] Social History Tobacco Use Types Packs/Day Years [...] not covered. Patient will do regular Flonase ES NAVAL Telephone Encounter - Donna Martines - 01/08/2020 4:21 PM CST [facility] called about the Fluticasone Propionate (Flonase) prescription that was put through today. The insurance will not cover it because at the end of the SIG it says Sensimist. Please call the pharmacy at [phone], or place another order. Thank you, Donna ES NAVAL documented in this encounter Plan of Treatment Not on filedocumented as of this encounter Visit Diagnoses Not on filedocumented in this encounter Additional Health Concerns Assessment Noted Time PHQ-9 Depression Total Score: 5 04/05/2019 8:00 AM CDT documented as of this encounter
--- OUTSIDE RECORDS SUMMARY | 2022-09-14 12:09 | XMS_ITS | Encounter Summary ---
:1965 Author Organization [facility] Address [address] [place] [address] Care Team Providers Name Role Phone Unavailable Primary Care Provider Unavailable Reason for Visit Reason Onset Date Comments Nicotine Dependence 04/26/2019 Encounter Details Date Type Department Care Team Description 04/26/2019 Clinical Department of Tesfaye Ortega, Nicotine Janet grady Communication Nicotine Kenna D, Dependence, Jordy Alex, [facility] in [place], [place] [address] [place] [address] Social History Tobacco Use Types Packs/Day Years [...] you attend buddhism or Patient refused 2021 protestant services? Do [...]
--- OUTSIDE RECORDS SUMMARY | 2022-09-14 12:09 | XMS_ITS | Encounter Summary ---
:1965 Author Organization [facility] Address [address] [place] [address] Care Team Providers Name Role Phone Unavailable Primary Care Provider Unavailable Encounter Details Date Type Department Care Team Description 10/09/2019 Orders Only Department of Otorhinolaryngology Alana Engel, in [facility] [address] [place] [address] 200 [place] [phone] [place], [place] [phone] Social History Tobacco Use Types Packs/Day Years [...] you attend jew or Patient refused 2021 taoism services? Do [...]
--- OUTSIDE RECORDS SUMMARY | 2022-09-14 12:09 | XMS_ITS | Encounter Summary ---
:1965 Author Organization [facility] Address [address] [place] [address] Care Team Providers Name Role Phone Unavailable Primary Care Provider Unavailable Encounter Details Date Type Department Care Team Description 06/28/2019 Hospital Encounter Department of Fernie Soriano Stroke ([facility]); Radiology, Jordy Alvarado M.D. Thrombosis Arterial ([facility]); Building, in [address] [place] [address] Aneurysm Cerebral Unruptured ([facility]) [place], [place] [address] [place] [address] [place], [place] [phone] (Work) [phone] Social History Tobacco Use Types Packs/Day Years [...] you attend cheondoism or Patient refused 2021 druze services? Do [...] the ventral aspect (series 6 image s 692-88). The lumen remains significantly irregular and there [...] well seen. The RADHA, MCA, a nd PNEUMATIC PRESS HAND branches are unremarkable in appearance. Stable postoperative [...] the ventral aspect (series 6 image s 163-42). The lumen remains significantly irregular and there [...] well seen. The RADHA, MCA, a nd PNEUMATIC PRESS HAND branches are unremarkable in appearance. Stable postoperative [...]
--- OUTSIDE RECORDS SUMMARY | 2022-09-14 12:09 | XMS_ITS | Encounter Summary ---
:1965 Author Organization [facility] Address [address] [place] [address] Care Team Providers Name Role Phone Unavailable Primary Care Provider Unavailable Reason for Visit Reason Onset Date Comments Nicotine Dependence 09/04/2019 Encounter Details Date Type Department Care Team Description 09/04/2019 Clinical Department of Tesfaye Ortega, Nicotine Janet grady Communication Nicotine Kenna D, Dependence, Jordy Alex, [facility], in [place], [place] [address] [place] [address] Social History Tobacco Use Types Packs/Day Years [...] you attend tenriism or Patient refused 2021 mormon services? Do [...]
--- OUTSIDE RECORDS SUMMARY | 2022-09-14 12:09 | XMS_ITS | Encounter Summary ---
:1965 Author Organization [facility] Address [address] [place] [address] Care Team Providers Name Role Phone Unavailable Primary Care Provider Unavailable Reason for Visit Reason Onset Date Comments Schedule Surgery 10/05/2019 Encounter Details Date Type Department Care Team Description 10/05/2019 Clinical Department of [place], Schedule Surge ry Communication Otorhinolaryngology in [place], [place] Lil[place] 200 [facility] [address] [place] [phone] [place] [address] Social History Tobacco Use Types Packs/Day Years [...] Kaykay Murphy R.N. - 10/17/2019 8:10 AM MARKER ASSEMBLER Pt has return appt with EKO on 10/23 ER ASSEMBLER Telephone Encounter - Alana Engel L.P.N. - 10/09/2019 2:49 PM CST Note sent to DR. Olmedo and patient's Neurology team to discuss clearance for surgery. Desk is scheduling a return for the patient ot discuss surgery. ER ASSEMBLER Telephone Encounter - Alana Engel L.P.N. - [...] to reassess. We can hold a date (me) in thefuture, but it may need to change based on recommendations from Neurology due to continued aspirin use or Dr. Olmedo's recommendations. We will call her back after we have found a time for her to comeback to discuss surgical options. Information: patient/caller able to repeat back in their own words The following references were used: provider Dr. Olmedo ER ASSEMBLER Telephone Encounter - Zoey Lipscomb - 10/05/2019 [...] surgical date. She can be reached at [phone]. ER ASSEMBLER documented in this encounter Plan of Treatment Not on filedocumented as of this encounter Visit Diagnoses Not on filedocumented in this encounter Additional Health Concerns Assessment Noted Time PHQ-9 Depression Total Score: 5 04/05/2019 8:00 AM CDT documented as of this encounter
--- OUTSIDE RECORDS SUMMARY | 2022-09-14 12:09 | XMS_ITS | Encounter Summary ---
:[address] [facility] Address [address] [place] [address] Care Team Providers Name Role Phone Unavailable Primary Care Provider Unavailable Encounter Details Date Type Department Care Team Description 10/02/2019 Orders Only Department of Robert Diehl Thrombosi s Arterial Neurology in [place] ([facility]) (Primary Dx) [place], [place] [address] [place] [address] 200 [place] [phone] Social History Tobacco Use Types Packs/Day Years [...] of Outside MR Neck (10/02/2019 1:01 PM PROVIDER SERVICE REPRESENTATIVE) Anatomical Region Laterality Modality Neuroradiology RST LOS, Neuroradiology ARZ LOS, N/A Magnetic Resonance Neuroradiology FLA LOS, Neck Specimen (Source) Anatomical Collection Method Collection Time Re ceived Time Location / / Volume Laterality 10/02/2019 1:03 PM PROVIDER SERVICE REPRESENTATIVE Impressions 10/02/2019 1:18 PM PROVIDER SERVICE REPRESENTATIVE Similar appearance of the distal right vertebral artery irregularity and mild narrowing at C1, r elated to the nonocclusive luminal thrombus, as seen on the prior CTA exams . MRA neck otherwise negative and unchanged. Narrative 10/02/2019 1:18 PM PROVIDER SERVICE REPRESENTATIVE EXAM: ??INTERPRETATION OF OUTSIDE MR NECK COMPARISON: [...]
--- OUTSIDE RECORDS SUMMARY | 2022-09-14 12:09 | XMS_ITS | Encounter Summary ---
:1965 Author Organization [facility] Address [address] [place] [address] Care Team Providers Name Role Phone Unavailable Primary Care Provider Unavailable Encounter Details Date Type Department Care Team Description 09/03/2019 Documentation Department of Neurology in Robert Fontanez M.D. [place], [place] 200 [facility] 200 [place] [phone] (Wo rk) Social History Tobacco Use Types [...] you attend hoahaoism or Patient refused 2021 christianity services? Do [...]
--- OUTSIDE RECORDS SUMMARY | 2022-09-14 12:09 | XMS_ITS | Encounter Summary ---
:1965 Author Organization [facility] Address [address] [place] [address] Care Team Providers Name Role Phone Unavailable Primary Care Provider Unavailable Reason for Visit Outpatient (Routine) - Closed Specialty Diagnoses / Procedures Referred By Contact Refer red To Contact Neurology Robert Diehl M. D. [facility] [address] [place] [phone] Referral ID Status Reason Start Date Expiration Date Visits Requ ested Visits Authorized [id number] Closed 06/28/2019 06/27/2020 1 1 Encounter Details Date Type Department Care Team Description 10/02/2019 Office Visit Department of Robert Diehl, Stroke (H CC) (Primary Dx); Neurology in M.D. Thrombosis Arterial (HCC) [place], [place] [address] [place] [address] [place] [phone] Social History Tobacco Use Types Packs/Day Years [...] of a magnetic resonance angiogram completed at [facility]. Unfortunately we do not have the [...] 1. Stroke (HCC) 2. Thrombosis Arterial (HCC) MANAGER documented in this encounter Plan of Treatment Not on filedocumented as of this encounter Visit Diagnoses Diagnosis Stroke (HCC) - Primary Thrombosis Arterial (HCC) documented in this encounter Additional Health Concerns Assessment Noted Time PHQ-9 Depression Total Score: 5 04/05/2019 8:00 AM CDT documented as of this encounter
--- OUTSIDE RECORDS SUMMARY | 2022-09-14 12:09 | XMS_ITS | Encounter Summary ---
:1965 Author Organization [facility] Address [address] [place] [address] Care Team Providers Name Role Phone Unavailable Primary Care Provider Unavailable Reason for Visit Reason Onset Date Comments MRI from [facility] 10/02/2019 Dr. Diehl Encounter Details Date Type Department Care Team Description 10/02/2019 Clinical Communication Department of Robert Diehl MR I from [place] [facility] Bull[facility], 200 [facility] Fazal) [place], [place] [address] [place] [phone] [place], [place] [phone] (Work) [phone] Social History Tobacco Use Types Packs/Day Years [...] you attend catholic or Patient refused 2021 samaritan services? Do [...] with the radiology film room (Marlen) at [facility]. They have pushed the MRI and it should be here soon. F CLIMATE SCIENTIST documented in this encounter Plan of Treatment Not on filedocumented as of this encounter Visit Diagnoses Not on filedocumented in this encounter Additional Health Concerns Assessment Noted Time PHQ-9 Depression Total Score: 5 04/05/2019 8:00 AM CDT documented as of this encounter
--- OUTSIDE RECORDS SUMMARY | 2022-09-14 12:09 | XMS_ITS | Encounter Summary ---
:1965 Author Organization [facility] Address [address] [place] [address] Care Team Providers Name Role Phone Unavailable Primary Care Provider Unavailable Reason for Referral Outpatient (Routine) - Closed Specialty Diagnoses / Procedures Referred By Contact Refer herson To Contact General Surgery Diagnoses Rhinosinusitis Chronic John Gomez M.D. [address] [phone] Referral ID Status Reason Start Date Expiration Date Visits Requ ested Visits Authorized [id number] Closed 11/08/2019 11/07/2020 1 1 utpatient (Routine) - Closed Specialty Diagnoses / Procedures Referred By Contact Clyde bains To Contact Otorhinolaryngology John Gomez M.D. [address] [phone] Referral ID Status Reason Start Date Expiration Date Visits Requ ested Visits Authorized [id number] Closed 11/08/2019 11/07/2020 1 1 Scheduling Instructions EKO listing visit and NESHA 11/29/2019 TER CIVIL Reason for Visit Reason Onset Date Comments reschedule surgery 11/07/2019 Patient was a no sydni w for surgery with Dr. Olmedo on 11/05/19. Encounter Details Date Type Department Care Team Description 11/07/2019 Clinical Department of shawna Olmedo Communication Otorhinolaryngology in [place], surg silva (Patient [place], [place] M.D. was a no show for [address] [place]. [place] [phone] SHAHANA Cook on [phone] [place], 11/05/19.) [place] [phone] Social History Tobacco Use Types Packs/Day Years [...] Tanvi White R.N. - 11/09/2019 10:02 AM DRAFTER CIVIL Patient called to let her know of the preoperative appointments and listing appointment with Dr. Darlin Olmedo. She was also informed that she does not have to stop the aspirin 81 mg for surgery. She verbalized understanding regarding the use of aspirin and was appreciative of the call. TER CIVIL Telephone Encounter - John Gomez M.D. - 11/08/2019 5:00 PM CST Kosta Wu, I placed the NESHA, listing visit, and created the listing. She can stay on her 81 ASA. Thank you. TER CIVIL Addendum Note - John Gomez M.D. - 11/08/2019 4:59 PM DRAFTER CIVIL Addended by: JOHN GOMEZ on: 11/08/2019 04:59 PM Modules accepted: Orders TER CIVIL Telephone Encounter - Tanvi White R.N. - 11/08/2019 10:59 AM DRAFTER CIVIL SUBJECTIVE CHIEF COMPLAINT / REASON FOR CALL [...] the surgical date. She will require a hook up driver and that plan will work better for her. Disposition/Recommendation: Patient is aware that she will need to call in the night before surgeryfor a report time to [facility]. Information/Education: patient/caller able to teach back Caller agreeable to plan of care: yes The following references were used: nursing clinical judgement TER CIVIL Telephone Encounter - Darlin Olmedo M.D. - 11/08/2019 10:16 AM CST Any of those days are fine. I should see her for a listing visit and NESHA. thanks TER CIVIL Telephone Encounter - Tanvi White R.N. - 11/07/2019 1:34 PM DRAFTER CIVIL SUBJECTIVE CHIEF COMPLAINT / REASON FOR CALL [...] following references were used: nursing clinical judgement TER CIVIL documented in this encounter Plan of Treatment Scheduled Referrals Name Type Priority Associated Diagnoses Order S chedule Otorhinolaryngology office Outpatient Routine E xpected: visit (clinic) Referral 11/29/2019, Expires: 11/08/2022 Preoperative Evaluation Outpatient Routine Rhinosinusitis Ex pected: NESHA consult (clinic) Referral Chronic 020 (Approximate), Expires: 11/08/2022 documented as of this encounter Results (ABNORMAL) CBC without Differential (11/29/2019 11:30 AM DRAFTER CIVIL) [facility] gist Method Time Signature Hemoglobin 13.3 11.6 - 11/29/2019 DTL 15.0 g/dL 12:09 PM DRAFTER CIVIL Hematocrit 40.6 35.5 - 11/29/2019 DTL 44.9 % 12:09 PM DRAFTER CIVIL Erythrocytes 4.08 3.92 - 11/29/2019 DTL 5.13 12:09 PM DRAFTER CIVIL x10(12)/L MCV 99.5 (H) 78.2 - 11/29/2019 DTL 97.9 fL 12:09 PM DRAFTER CIVIL RBC Distrib Width 13.3 12.2 - 11/29/2019 DTL 16.1 % 12:09 PM DRAFTER CIVIL Platelet Count 234 157 - 371 11/29/2019 DTL x10(9)/L 12:09 PM DRAFTER CIVIL Leukocytes 5.8 3.4 - 9.6 11/29/2019 DTL x10(9)/L 12:09 PM DRAFTER CIVIL Specimen Anatomical Collection Method Collection Time Receive d Time (Source) Location / / Volume Laterality Blood (Blood, 11/29/2019 11:30 11/29/2019 Venous) AM DRAFTER CIVIL 11:50 AM DRAFTER CIVIL John Gomez M.D. LAB BLOOD ADD-ON Performing Organization Address City/State/ZIP Code Phon e Number [facility] - [address] [place], [place] [address] [facility] [place] [address] Laboratories-[facility] [address] documented in this encounter Visit Diagnoses Diagnosis Rhinosinusitis Chronic - Primary documented in this encounter Additional Health Concerns Assessment Noted Time PHQ-9 Depression Total Score: 5 04/05/2019 8:00 AM CDT documented as of this encounter
--- OUTSIDE RECORDS SUMMARY | 2022-09-14 12:09 | XMS_ITS | Encounter Summary ---
:1965 Author Organization [facility] Address [address] [place] [address] Care Team Providers Name Role Phone Unavailable Primary Care Provider Unavailable Reason for Visit Outpatient (Routine) - Closed Specialty Diagnoses / Procedures Referred By Contact Refer red To Contact Otorhinolaryngology Jey Santana M.D. [facility] [address] [place] [phone] Referral ID Status Reason Start Date Expiration Date Visits Requ ested Visits Authorized [id number] Closed 11/08/2019 11/07/2020 1 1 Encounter Details Date Type Department Care Team Description 11/29/2019 Office Visit Department of Darlin Olmedo Mucocele Nasa l Sinus Otorhinolaryngology jimmy Brumfield M.D. (Primary Dx) [address] [place] [phone] Social History Tobacco Use Types Packs/Day Years [...] you attend mormon or Patient refused 2021 baptist services? Do you belong to any clubs or No 05/17/2022 organizations such as mormon groups, unions, fraCytox or athletic groups, or school groups? How [...] Previous sinus surgery: sinus surgery X2 in [place] and X2 at [place] per patient; mucocele notedby left eye on [...] if this occurs we will identify another testing consultant surgeon to supervise other team members to safely and seamlessly complete the procedure. Signed consent was obtained today. Patient was seen and examined today in conjunction with Dr. Darlin Olmedo ([phone]). AGING MANAGER Associated attestation - Darlin Olmedo M.D. - 11/30/2019 10:43 AM PACKAGING MANAGER I was the supervising physician in the delivery of the service. I saw the patient with Krista Casey APRN, MARKETING CLERK, MSN and agree with her history, Assessment [...]
--- OUTSIDE RECORDS SUMMARY | 2022-09-14 12:09 | XMS_ITS | Encounter Summary ---
:1965 Author Organization [facility] Address [address] [place] [address] Care Team Providers Name Role Phone Unavailable Primary Care Provider Unavailable Reason for Visit Outpatient (Routine) - Closed Specialty Diagnoses / Procedures Referred By Contact Refer red To Contact General Surgery Diagnoses Rhinosinusitis Chronic Jey Santana M.D. [facility] [address] [place] [phone] Referral ID Status Reason Start Date Expiration Date Visits Requ ested Visits Authorized [id number] Closed 11/08/2019 11/07/2020 1 1 Encounter Details Date Type Department Care Team Description 11/29/2019 Comprehensive Visit Preoperative Jey Santana M.D. [address] [place] [phone] Preanesthetic Medical Exam (Primary Dx); Evaluation Center in Lanre Carvajal M.D. [address] [place] [phone] Rhinosinusitis Chronic [place], [place] [address] [place] [phone] Social History Tobacco Use Types Packs/Day Years [...] Comments Blood Pressure 108/74 11/29/2019 12:45 PM APIARIST Pulse 104 11/29/2019 12:45 PM APIARIST Temperature 36.5 ??C (97.7 ??F) 11/29/2019 12:45 PM APIARIST Respiratory Rate - - Oxygen Saturation 96% 11/29/2019 12:45 PM APIARIST Inhaled Oxygen Concentration - - Weight 76.4 kg (168 lb 6.9 oz) 11/29/2019 12:45 PM APIARIST Height 151.7 cm (4' 11.72) 11/29/2019 12:45 PM APIARIST Body Mass Index 33.2 11/29/2019 12:45 PM APIARIST documented in this encounter H&P Notes Lanre Carvajal M.D. - 11/29/2019 12:45 PM CST Preoperative Medical Evaluation Patient Name: Angie Mosquera Age: 54 y.o. Date of : 1965 Patient Address: [address] [place] [phone] Primary Care Provider: No primary care provider [...] #11 Patent Foramen Ovale (HCC) Noted on [id number]/ ECHO otherwise normal. I will not pursue anything further RIST documented in this encounter Plan of Treatment Not on filedocumented as of this encounter Results Creatinine with Estimated GFR - for Lab Draw (11/29/2019 11:30 AM APIARIST) P athologist Signature Creatinine 0.98 0.59 - 11/29/2019 DTL 1.04 mg/dL 1:05 PM APIARIST eGFR-Non 65 >=60 11/29/2019 DTL Black/ mL/min/BSA 1:05 PM APIARIST Central African Comment: ----ADDITIONAL INFORMATION---- Estimated GFR calculated using the 2009 CKD_EPI creatinine equation. eGFR-Black/ 75 >=60 mL/min/BSA 2019 1:05 PM APIARIST DTL Comment: ----ADDITIONAL INFORMATION---- Estimated GFR calculated using the 2009 CKD_EPI creatinine equation. Specimen Anatomical Collection Method Collection Time Receive d Time (Source) Location / / Volume Laterality Blood (Blood, 11/29/2019 11:30 11/29/2019 Venous) AM APIARIST 11:50 AM APIARIST Miranda Collado APRN, C.N.P., M.S.N. LAB BLOOD ADD-ON Performing Organization Address City/State/ZIP Code Phon e Number [facility] - [address] [place], [place] [address] [facility] [place] [address] Laboratories-[facility] [address] documented in this encounter Visit Diagnoses Diagnosis Preanesthetic Medical Exam - Primary Rhinosinusitis Chronic documented in this encounter Additional Health Concerns Assessment Noted Time PHQ-9 Depression Total Score: 5 04/05/2019 8:00 AM CDT documented as of this encounter
--- OUTSIDE RECORDS SUMMARY | 2022-09-14 12:09 | XMS_ITS | Encounter Summary ---
:1965 Author Organization [facility] Address [address] [place] [address] Care Team Providers Name Role Phone Unavailable Primary Care Provider Unavailable Reason for Visit Reason Onset Date Comments Telephone call 04/24/2019 [place] Encounter Details Date Type Department Care Team Description 04/24/2019 Clinical Communication Department of Blanca, Tele phone call Neurology in Nan Bose M.D. (Blanca) [place], [facility] [place], [place] [address] [place] [phone] [place], [place] [phone] (Work) [phone] Social History Tobacco Use Types Packs/Day Years [...] The patient contacted Dr. Henry's office at [facility] for a PFO closure. Depending on your answer would decide if the patient was a candidate for PFO closure. They read your 04/04/18 hospital summary in [facility], but the answer is unclear. Their fax is [phone]. thanks documented in this encounter Plan of Treatment Not on filedocumented as of this encounter Visit Diagnoses Not on filedocumented in this encounter Additional Health Concerns Assessment Noted Time PHQ-9 Depression Total Score: 5 04/05/2019 8:00 AM CDT documented as of this encounter
--- OUTSIDE RECORDS SUMMARY | 2022-09-14 12:09 | XMS_ITS | Encounter Summary ---
:1965 Author Organization [facility] Address [address] [place] [address] Care Team Providers Name Role Phone Unavailable Primary Care Provider Unavailable Reason for Visit Reason Onset Date Comments wants to have MRI done closer to home before appt 09/03/2019 [facility] Encounter Details Date Type Department Care Team Description 09/03/2019 Clinical Communication Department of [facility] Robert cabrera nts to have MRI Neurology in [place], [place]itt[place] done closer to home [place], [facility] before appt [place], [place] ([facility]) [address] [facility] [phone] [place], [place] [phone] (Work) [phone] Social History Tobacco Use Types Packs/Day Years [...] you attend spiritism or Patient refused 2021 tenriism services? Do [...] for MRA faxed to Dr. Blackwell at [facility] at fax [phone]. Called the patient and left a message [...] like to have her MRI done at [facility] before her appointment with Dr. Diehl on 09/19. Or if she could get her MRI scheduled for the same day as she is here for her appointment. She doesn't want to drive 2 days in a row. She wanted the order sent to Dr. Blackwell so I guess just send notes to Dr. Clemente Blackwell at [facility] Phone- [phone] documented in this encounter Plan of Treatment Not on filedocumented as of this encounter Visit Diagnoses Not on filedocumented in this encounter Additional Health Concerns Assessment Noted Time PHQ-9 Depression Total Score: 5 04/05/2019 8:00 AM CDT documented as of this encounter
--- OUTSIDE RECORDS SUMMARY | 2022-09-14 12:09 | XMS_ITS | Encounter Summary ---
:1965 Author Organization [facility] Address [address] [place] [address] Care Team Providers Name Role Phone Unavailable Primary Care Provider Unavailable Encounter Details Date Type Department Care Team Description 11/29/2019 Hospital Encounter Department of Jey Santana, Rhinosi nusitis Chronic; Laboratory Medicine M.DBritton Preanesthetic Medical Exam and Pathology, [address] [place] [address] in [facility] [address] [place] [phone] [place] [address] (Work) [place], [place] [phone] (Fax) [phone] Social History Tobacco Use Types Packs/Day Years [...] you attend episcopalian or Patient refused 2021 baptist services? Do [...] R esults for this DIFFERENTIAL, B AM JUTE BAG SEWER procedure ar e in the results section. CREATININE WITH Routine 11/29/2019 11:30 Preanesthetic Medical Results for this EGFR, S/P AM JUTE BAG SEWER Exam procedure are i n the results section. documented in this encounter Results Creatinine with Estimated GFR - for Lab Draw (11/29/2019 11:30 AM JUTE BAG SEWER) P athologist Signature Creatinine 0.98 0.59 - 11/29/2019 DTL 1.04 mg/dL 1:05 PM JUTE BAG SEWER eGFR-Non 65 >=60 11/29/2019 DTL Black/ mL/min/BSA 1:05 PM JUTE BAG SEWER Lebanese Comment: ----ADDITIONAL INFORMATION---- Estimated GFR calculated using the 2009 CKD_EPI creatinine equation. eGFR-Black/ 75 >=60 mL/min/BSA 2019 1:05 PM JUTE BAG SEWER DTL Comment: ----ADDITIONAL INFORMATION---- Estimated GFR calculated using the 2009 CKD_EPI creatinine equation. Specimen Anatomical Collection Method Collection Time Receive d Time (Source) Location / / Volume Laterality Blood (Blood, 11/29/2019 11:30 11/29/2019 Venous) AM JUTE BAG SEWER 11:50 AM JUTE BAG SEWER Miranda Collado APRN C.N.P., M.S.N. LAB BLOOD ADD-ON Performing Organization Address City/State/ZIP Code Phon e Number [facility] - [address] [place] [address] [place] [address] Laboratories-[facility] 200 [facility] (ABNORMAL) CBC without Differential (11/29/2019 11:30 AM JUTE BAG SEWER) Patholo gist Method Time Signature Hemoglobin 13.3 11.6 - 11/29/2019 DTL 15.0 g/dL 12:09 PM JUTE BAG SEWER Hematocrit 40.6 35.5 - 11/29/2019 DTL 44.9 % 12:09 PM JUTE BAG SEWER Erythrocytes 4.08 3.92 - 11/29/2019 DTL 5.13 12:09 PM JUTE BAG SEWER x10(12)/L MCV 99.5 (H) 78.2 - 11/29/2019 DTL 97.9 fL 12:09 PM JUTE BAG SEWER RBC Distrib Width 13.3 12.2 - 11/29/2019 DTL 16.1 % 12:09 PM JUTE BAG SEWER Platelet Count 234 157 - 371 11/29/2019 DTL x10(9)/L 12:09 PM JUTE BAG SEWER Leukocytes 5.8 3.4 - 9.6 11/29/2019 DTL x10(9)/L 12:09 PM JUTE BAG SEWER Specimen Anatomical Collection Method Collection Time Receive d Time (Source) Location / / Volume Laterality Blood (Blood, 11/29/2019 11:30 11/29/2019 Venous) AM JUTE BAG SEWER 11:50 AM JUTE BAG SEWER Jey Santana M.D. LAB BLOOD ADD-ON Performing Organization Address City/State/ZIP Code Phon e Number [facility] - [facility] [place], [place] [address] [place] [address] Laboratories-[facility] 200 [facility] documented in this encounter Visit Diagnoses Diagnosis Rhinosinusitis Chronic Preanesthetic Medical Exam documented in this encounter Additional Health Concerns Assessment Noted Time PHQ-9 Depression Total Score: 5 04/05/2019 8:00 AM CDT documented as of this encounter
--- OUTSIDE RECORDS SUMMARY | 2022-09-14 12:09 | XMS_ITS | Encounter Summary ---
:1965 Author Organization [facility] Address [address] [place] [address] Care Team Providers Name Role Phone Unavailable [...] you attend adventist or Patient refused 2021 uatsdin services? Do [...] 11/29/2019 3:10 Results for this EXAM PM MEDICAL LIBRARY ASSISTANT procedure are i n the results section. documented in this encounter Results NOSE-Otorhinolaryngology Image Exam (11/29/2019 3:10 PM MEDICAL LIBRARY ASSISTANT) Specimen (Source) Anatomical Collection Method Collection Time Re ceived Time Location / / Volume Laterality 11/29/2019 3:08 PM MEDICAL LIBRARY ASSISTANT Narrative IIMS - 11/29/2019 3:58 PM MEDICAL LIBRARY ASSISTANT This order has been created and [...]
--- OUTSIDE RECORDS SUMMARY | 2022-09-14 12:09 | XMS_ITS | Encounter Summary ---
:1965 Author Organization [facility] Address [address] [place] [address] Care Team Providers Name Role Phone Unavailable Primary Care Provider Unavailable Encounter Details Date Type Department Care Team Description 10/02/2019 Ancillary Procedure Department of Robert Diehl Arterial Radiology jimmy Celaya M.D. ([facility]) [place], [place] [address] [facility] 200 [place] [phone] Social History Tobacco Use Types Packs/Day Years [...] you attend hinduism or Patient refused 2021 rastafari services? Do [...] Robert Diehl M.D. - 10/02/2019 3:20 PM WEATHER STRIPPER HEALTH SAFETY INSTRUCTOR: Would you please give the patient a [...] artery finding and the left paraclinoid aneurysm. HER STRIPPER documented in this encounter Plan of Treatment Not on filedocumented as of this encounter Procedures Procedure Name Priority Date/Time Associated Comments Diagnosis INTERPRETATION OF RAD - Routine 10/02/2019 1:01 Thrombosis Result s for OUTSIDE MR NECK (most inpatients PM WEATHER STRIPPER Arterial (HCC) this p rocedure and all are in the outpatients) results section. documented in this encounter Results Interpretation of Outside MR Neck (10/02/2019 1:01 PM WEATHER STRIPPER) Anatomical Region Laterality Modality Neuroradiology RST LOS, Neuroradiology ARZ LOS, N/A Magnetic Resonance Neuroradiology FLA LOS, Neck Specimen (Source) Anatomical Collection Method Collection Time Re ceived Time Location / / Volume Laterality 10/02/2019 1:03 PM WEATHER STRIPPER Impressions 10/02/2019 1:18 PM WEATHER STRIPPER Similar appearance of the distal right vertebral artery irregularity and mild narrowing at C1, r elated to the nonocclusive luminal thrombus, as seen on the prior CTA exams . MRA neck otherwise negative and unchanged. Narrative 10/02/2019 1:18 PM WEATHER STRIPPER EXAM: ??INTERPRETATION OF OUTSIDE MR NECK COMPARISON: [...]
--- OUTSIDE RECORDS SUMMARY | 2022-09-14 12:09 | XMS_ITS | Encounter Summary ---
:1965 Author Organization [facility] Address [address] [place] [address] Care Team Providers Name Role Phone Unavailable Primary Care Provider Unavailable Reason for Visit Reason Onset Date Comments Nicotine Dependence 08/30/2019 Encounter Details Date Type Department Care Team Description 08/30/2019 Clinical Department of Tesfaye Ortega, Nicotine Janet grady Communication Nicotine Kenna D, Dependence, Jordy Alex, [facility] in [place], [place] [address] [place] [address] Social History Tobacco Use Types Packs/Day Years [...] you attend islam or Patient refused 2021 adventist services? Do [...]
--- OUTSIDE RECORDS SUMMARY | 2022-09-14 12:09 | XMS_ITS | Encounter Summary ---
:1965 Author Organization [facility] Address [address] [place] [address] Care Team Providers Name Role Phone Unavailable Primary Care Provider Unavailable Encounter Details Date Type Department Care Team Description 10/03/2019 Clinical Communication Department of Robert Diehl, Neurology in .. [place], [place] 200 [facility] 200 [place] [phone] Social History Tobacco Use Types Packs/Day Years [...] you attend adventist or Patient refused 2021 mandaen services? Do [...] Coby this is for you, records request TENDER Telephone Encounter - Janis Preston R.N. - 10/03/2019 3:11 PM CST Called patient back with update about aspirin per Dr. Diehl. Patient voiced understanding that she will stop the warfarin and continue baby aspirin. She wants notes about her visit sent to her DrBrittonin [facility]. Janis Preston R.N. TENDER Telephone Encounter - Janis Preston R.N. - [...] dose and warfarin discontinuation. Janis Preston R.N. TENDER documented in this encounter Plan of Treatment Not on filedocumented as of this encounter Visit Diagnoses Not on filedocumented in this encounter Additional Health Concerns Assessment Noted Time PHQ-9 Depression Total Score: 5 04/05/2019 8:00 AM CDT documented as of this encounter
--- OUTSIDE RECORDS SUMMARY | 2022-09-14 12:09 | XMS_ITS | Encounter Summary ---
:1965 Author Organization [facility] Address [address] [place] [address] Care Team Providers Name Role Phone Unavailable Primary Care Provider Unavailable Reason for Referral Outpatient (Routine) - Closed Specialty Diagnoses / Procedures Referred By Contact Refer red To Contact Neurology Robert Diehl M. D. [facility] [address] [place] [address] [phone] Referral ID Status Reason Start Date Expiration Date Visits Requ ested Visits Authorized [id number] Closed 06/28/2019 06/27/2020 1 1 Reason for Visit Outpatient (Routine) - Closed Specialty Diagnoses / Procedures Referred By Contact Refer red To Contact Neurology Diagnoses Stroke (HCC) Thrombosis Arterial (HCC) Aneurysm Cerebral Unruptured (HCC) Fernie Soriano M.D. [facility] [address] [place] [address] [phone] Referral ID Status Reason Start Date Expiration Date Visits Requ ested Visits Authorized [id number] Closed 03/31/2019 03/30/2020 1 1 Encounter Details Date Type Department Care Team Description 06/28/2019 Office Visit Department of Robert Diehl Fatigue ( Primary Dx); Neurology in [place] Stroke (HCC); [place], [place] 200 [facility] Thrombosis Arterial (HCC); [address] [place] [address] Aneurysm Cerebral Unruptured (HCC) [place] [phone] Social History Tobacco Use Types Packs/Day Years [...] you attend congregation or Patient refused 2021 gnosticism services? Do [...] Home Overnight Oximetry 2. Stroke ([facility]) Neurology - Cerebrovascular consult (clinic) MR Neck Angiogram without and with IV Contrast PM Device interrogation (clinic) 3. Thrombosis Arterial ([facility]) Neurology - Cerebrovascular consult (clinic) MR Neck Angiogram without and with IV Contrast PM Device interrogation (clinic) 4. Aneurysm Cerebral Unruptured ([facility]) Neurology - Cerebrovascular consult (clinic) documented in this encounter Plan of Treatment Scheduled Orders Name Type Priority Associated Diagnoses [facility] Overnight PFT Routine Fatigue Expected: 06/28/2019 Oximetry (Approximate), Expires: 06/28/2022 Scheduled Referrals Name Type Priority Associated Diagnoses [facility] Outpatient Referral Routine Expe cted: [...]
--- OUTSIDE RECORDS SUMMARY | 2022-09-14 12:09 | XMS_ITS | Encounter Summary ---
:1965 Author Organization [facility] Address [address] [place] [address] Care Team Providers Name Role Phone Unavailable Primary Care Provider Unavailable Reason for Visit Reason Onset Date Comments Patient wants letter and notes sent to physician in 10/03/[address] Robert Diehl [facility] Encounter Details Date Type Department Care Team Description 10/03/2019 Clinical Communication Department of Robert Diehl Neurology in [place] letter and notes [address] sent to physician [place], [place] in [facility] ( [address] [place] [phone] Robert Diehl) [place], [place] [phone] (Work) [phone] Social History Tobacco Use Types Packs/Day Years [...] you attend advent or Patient refused 2021 amish services? Do [...] 3:55 PM CST As per documentation in [facility] on 09/04, a letter has been sent to Dr. Blackwell with the patient's notes from her most recent visit. 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
--- OUTSIDE RECORDS SUMMARY | 2022-09-14 12:10 | XMS_ITS | Encounter Summary ---
:1965 Author Organization [facility] Address [address] [place] [id number] Care Team Providers Name Role Phone Unavailable Primary Care Provider Unavailable Reason for Referral Outpatient (Routine) - Closed Specialty Diagnoses / Procedures Referred By Contact Refer red To Contact Neurology Diagnoses Stroke (HCC) Thrombosis Arterial (HCC) Aneurysm Cerebral Unruptured (HCC) Fernie Soriano M.D. [facility] [address] [place] [phone] Referral ID Status Reason Start Date Expiration Date Visits Requ ested Visits Authorized [id number] Closed 03/31/2019 03/30/2020 1 1 Reason for Visit Reason Comments Dizziness Evaluated [place] scan. Headache Encounter Details Date Type Department Care Team Description 03/29/2019 - Hospital Encounter [facility] Alfredo Rausch M.D., M.A. [address] [place] [address] Stroke (HCC) (Primary Dx); [facility] [address] [place] [phone] Transient Ischemic Attack; [facility], Nan Rios M.D. [address] [place] [phone] Thrombosis Arterial (HCC); [facility], Nicotine Dependence Cigarettes; Second floor Aneurysm Cerebral Unruptured ([facility]) [address] [place] [address] Social History Tobacco Use Types [...] patient, follows with Dr. Estephanie Franz in [place], [place]. Primary Care Provider Phone Number: None [...] and PCP follow-up with Dr. Franz in [place], [place], scheduled for 04/02/2019. - Please be [...] 04/10/2019 2:15 PM Darlin Olmedo M.D. [facility] RS[facility]olanta Spec TEST RESULTS PENDING AT DISCHARGE [...] speech at the time. She presented to [facility], where MRI/MRA head showed multiple [...] that the patient was discharged on a , our clinical assistant professor of drama will arrange for PCP follow-up and INR [...] speech at the time. She presented to [facility], where MRI/MRA head showed multiple [...] discharged on a weekend, our clinical assistant professor of drama will arrange for PCP follow-up and INR checks on Tuesday. RECOMMENDATIONS: - Patient to continue enoxaparin 70 mg (1 mg/kg) BID bridge to warfarin with goal INR 2-3. Patient to receive INR checks and PCP follow-up with Dr. Franz in [place], [place] as soon as possible after discharge. [...] this after visit summary to your appointment(s). [place], [place] April 02, 2019 - Tuesday --12:30 PM - Hospital Follow-Up with Dr. Gold MD, Colleague of Juana Franz MD, primary care provider, at [facility] RECOMMENDATIONS: * April 02, 2019 at 9:30 AM [facility] INR Check * [facility] You may have outpatient appointments at [facility] that changed during your hospitalization. Refer to your [facility] Patient Visit Guide (PVG) for the most current schedule of appointments and detailed instructions of tests/procedures. Call [phone], if you did not receive an PVG or need to CANCEL any [facility] appointment(s). You were discharged from [...] are intact. There is no dysmetria on scrnqp-xt-pmwl and mjek-cy-upse. There are no abnormal or extraneous movements. [...] week (to be arranged by clinical assistant professor of drama, in-basket message sent). Will also require follow-up [...] --Will arrange for PCP appt (Dr. Franz, [place], [place]) for INR monitoring 04/02 or earliest [...] page the neurology stroke/cerebrovascular disease service pager ([phone]) with any questions orconcerns. Kylie Rubio R.N. [...] are intact. There is no dysmetria on hesyjq-ao-gpcv and whpz-fw-vdzy. There are no abnormal or extraneous movements. Romberg is absent. Gait: Tandem gait improved from admission. Posture is normal. Gait steady with normal steps, base, arm swing and turning. Heel and toe walking are normal. DIAGNOSTICS Last 3 results Lab Units 03/30/1962003/29/19 1404 HEMOGLOBIN g/dL 12.5 12.4 WBC x10(9)/L [...] Findings discussed at 2:03 p.m with pager [phone] Additional Diagnostic Studies Ecg 12 Lead Result [...] intensity heparin nomogram currently, switching to enoxaparin 03/30 evening and will d/c on that to [...] page the neurology stroke/cerebrovascular disease service pager [phone]) with any questions orconcerns. documented in this [...] the day of presentation and came to [facility], although head CT did not demonstrate [...] dull and mild now. She presented to [facility], where MRI/MRA head showed multiple [...] 54 I/O 03/28 0000 - 03/28 2359 03/29 - 03/29 2359 [...] are intact. There is no dysmetria on zfzrct-om-nfez and kcfc-hh-thlk. There are no abnormal or extraneous movements. [...] Findings discussed at 2:03 p.m with pager [phone] Additional Diagnostic Studies ASSESSMENT / PLAN Ms. [...] consult placed Diet: general diet, NPO at AR for DEVON Tubes/lines: Will place PIV VTE prophylaxis: therapeutic anticoagulation Code status: Full Code Disposition: Likely Home with expected discharge date pending Trent Ferrer M.D. 03/29/19 Please page the stroke/cerebrovascular neurology service pager [phone]) for any questions or concerns. STROKE DOCUMENTATION: [...] Prior Function / Occupational Profile Level of [place]: Independent with ADLs and functional transfers, Independent [...] Score: 24 Basic Mobility Standardized Score: 61.14 [facility] 0-100% Score: 0 % Basic Mobility [facility] Modifier: CH INTERPRETATION: Clinicians answer the AM-PAC [...] CMS Modifier: DOMINGO Gonzalez P.T., D.P.T. Kenna Christensen, M.S., C.T.T.S. - 03/30/2019 2:26 PM CDTAssociated Order(s): IP CONSULT TO INTERNAL MEDICINE NICOTINE DEPENDENCE SUBJECTIVE Consults REASON FOR CONSULT Admitting Service: Neurology Reason for Consult: Tobacco Use Disorder HISTORY OF PRESENT ILLNESS Angie Mosquera is a 53 y.o. female who was seen at [facility] and is being evaluated for Tobacco [...] Prior Function / Occupational Profile Level of [place]: Independent with ADLs and functional transfers, Independent [...] safe discharge to home with assistance from stephon for heavy lifting. Daytime check-ins: : Patient [...] be independent with home exercise resistive theraband ([place]) program for left shoulder and elbow (MET) OT Goal #3 Date: 03/30/19 @FLOW12([id number])@ Plan Patient agrees with the plan of [...] living independently in her own apartment in [place] until yesterday morning when she noted the [...] another to prevent her from falling. Ms. Mosqurea was initially taken to the [facility] where MRI/MRA (images which I reviewed in QREADS) revealed bila teral small areas of restricted diffusion in posterior distribution involving both the cerebellar and occipital lobes. The etiology was presumed embolic and she was transferred to [place] for further evaluation here. Upon arrival at [place], Ms. Mosquera was described as alert, in [...] has lived alone in an apartment in [place] for,I believe, 5 years. She is unemployed, [...] tone: Upper and lower extremities 0/0. Coordination: Wjuoxg-zs-ekvl was 0/0. Satellite sign was symmetric. Cranial nerves II through XII: Extraocular movements were intact. Visual jhaveri were intact. Uhrb-yk-lyhmnueh decreased hearing acuity bilaterally. Smile symmetric. Tongue [...] diagnostic data. 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 female who presents to the [facility] for evaluation of vertigo and [...] an Emergency Neurology consult note. Please page [phone] with any additional questions. I personally spent [...] CHIEF COMPLAINT/REASON FOR VISIT Dizziness (Evaluated in [place] with [place] scan. ) and Headache HISTORY OF PRESENT ILLNESS 53-year-old female who presents from outside facility to [facility] ED with a chief concern of [...] She was transported from outside hospital to [facility] for further evaluation management by [...] do basic arithmetic No visual agnosia No afuj-mu-admko agnosia Odmoel-kl-dbdp normal Akvy-mx-eeft normal Skin: Skin is warm, dry, intact [...] to the emergency department by ambulance from [facility] for evaluation of headache and difficulty with balance. Patient states that she woke up this morning and felt like her body was drunk. She subsequently developed a headache. She was seen at the outside hospital and underwent neuro imaging, laboratory evaluation, EKG testing. She now presents for [facility]. She is currently complaining of fatigue only. Neuro imaging at [place]: MRI head MRA demonstrates multiple foci of [...] speech at the time. She presented to [facility], where MRI/MRA head showed multiple [...] discharged on a weekend, our clinical assistant professor of drama will arrange for PCP follow-up and INR checks on Tuesday. documented in this encounter Plan of Treatment Scheduled Referrals Name Type Priority Associated Order Schedule Diagnoses Neurology - Outpatient Routine Stroke ([facility]) Expected: Cerebrovascular consult Referral Thrombosis 02/2019 (clinic) Arterial ([facility]) (Approximate), Aneurysm Cerebral Expires: Unruptured ([facility]) 03/31/2022 documented as of this encounter Procedures [...] - Routine 03/30/2019 5:32 Results for HOSPITAL ADVERTISING PHOTOGRAPHER - PM CDT this proc edure MONITORED [...] N/A Computed Tomography ARZ LOS, Neuroradiology [facility]LA [facility] Specimen (Source) [...] the ventral aspect (series 6 image s [id number]). The lumen remains significantly irregular and there [...] well seen. The RADHA, MCA, a nd SOD FARMER branches are unremarkable in appearance. Stable postoperative [...] the ventral aspect (series 6 image s [id number]). The lumen remains significantly irregular and there [...] well seen. The RADHA, MCA, a nd SOD FARMER branches are unremarkable in appearance. Stable postoperative [...] Prothrombin Time (PT/INR) (03/31/2019 8:12 AM CDT) [facility] Method Time Signature Prothrombin 11.5 9.4 - 12.5 03/31/2019 [facility] Time, P sec 8:46 AM CDT LABORATORIES [facility] INR 1.0 0.9 - 1.1 03/31/2019 [facility] 8:46 AM CDT [facility] Comment: ----ADDITIONAL INFORMATION---- Standard intensity warfarin therapeutic range: 2.0 to 3.0 ?? High intensity warfarin therapeutic rang e: 2.5 to 3.5 Specimen Anatomical Collection Method Collection Time Receive d Time (Source) Location / / Volume Laterality Blood (Blood, 03/31/2019 8:12 AM 03/31/20 19 8:32 Venous) CDT AM CDT Trent Ferrer M.D. LAB BLOOD ADD-ON Performing Organization Address City/State/[facility] Code Phon e Number [facility] LABORATORIES - [address] [place], [place] [address] [facility] CBC without Differential (03/31/2019 8:12 AM CDT) [facility] Method Time Signature Hemoglobin 12.9 11.6 - 03/31/2019 [facility] 15.0 g/dL 8:37 AM CDT [facility] Hematocrit 39.6 35.5 - 03/31/2019 [facility] 44.9 % 8:37 AM CDT [facility]ATORIES [facility] Erythrocytes 4.06 3.92 - 03/31/2019 [facility] 5.13 8:37 AM CDT LABORATORIES - x10(12)/L [facility] MCV 97.5 78.2 - 03/31/2019 [facility] 97.9 fL 8:37 AM CDT [facility] RBC Distrib Width 13.2 12.2 - 03/31/2019 [facility] 16.1 % 8:37 AM CDT [facility] Platelet Count 256 157 - 371 03/31/2019 [facility] x10(9)/L 8:37 AM CDT [facility]ATORIES [facility] Leukocytes 5.3 3.4 - 9.6 03/31/2019 [facility] x10(9)/L 8:37 AM CDT [facility] Specimen Anatomical Collection Method Collection Time Receive d Time (Source) Location / / Volume Laterality Blood (Blood, 03/31/2019 8:12 AM 03/31/20 19 8:31 Venous) CDT AM CDT Trent Ferrer M.D. LAB BLOOD ADD-ON Performing Organization Address City/State/ZIP Code Phon e Number [facility] LAB[facility]ATORIES - [address] [place], [place] [address] [facility] HOLTER MONITOR - HOSPITAL ADVERTISING PHOTOGRAPHER - MONITORED IN HOSPITAL OR ED DISCHARGE (03/30/2019 5:32 PM CDT) [facility] gist Method Time Signature Recording Date [id number] HOLTER SENTINEL Analysis Date 20,190,510 HOLTER SENTINEL Max Heart Rate 125 bpm HOLTER SENTINEL Max Heart Rate HOLTER Time SENTINEL Min Heart Rate 46 bpm HOLTER SENTINEL Min Heart Rate [id number] HOLTER Time SENTINEL Mean Heart 71 bpm [...] count HOLTER Hour SENTINEL VE Max Per [id number] HOLTER Hour Time SENTINEL AF Count 0 count HOLTER SENTINEL SVT Runs 0 count HOLTER SENTINEL SVE Total 106 count HOLTER Beats SENTINEL SVE Percent 0 percent HOLTER Beats SENTINEL SVE Max Per 18 count HOLTER Hour SENTINEL SVE Max Per [id number] HOLTER Hour Time SENTINEL Specimen (Source) Anatomical [...] superior vena cava. Patent foramen ovale. ??No vmjh-ao-daanf shunt at atrial level. ??Agitated saline injection(s) performed. ??Small kagpc-cx-doai shunt a t atrial level at rest and with Valsalva release. Pericardial effusion. ??PROCEDURE ??Max sesophageal echocardiogram performed at the request of the primary director of creative services. ??Adult probe inserted without difficulty. ??Procedure [...] Sedation Narrator or other pertinent record in [facility] for additional procedure and sedation [...] superior vena cava. Patent foramen ovale. No humo-el-cverc s ballesteros at atrial level. Agitated saline injection(s) performed. Small bnjup-sn-bnlp shunt at atrial level at rest and with Valsalva release. Pericardial effusion. PROCEDURE Transeso phageal echocardiogram performed at the request of the primary director of creative services. Adult pr obe inserted without difficulty. [...] Sedation Narrator or other pertinent record in [facility] for additional procedure and sedation in formation. Transesophageal echocardiogram completed without complications. For the complete report, see the Order-L evel Documents below. See PDF For Result Trent Ferrer M.D. CV ECHO PROCEDURES Prothrombin Time (PT/INR) (03/30/2019 11:42 AM CDT) [facility] Method Time Signature Prothrombin 11.3 9.4 - 12.5 03/30/2019 [facility] Time, P sec 12:05 PM CDT [facility]ATORIES [facility] INR 1.0 0.9 - 1.1 03/30/2019 [facility] 12:05 PM CDT [facility] - [facility] Comment: ----ADDITIONAL INFORMATION---- Standard intensity warfarin therapeutic range: 2.0 to 3.0 ?? High intensity warfarin therapeutic rang e: 2.5 to 3.5 Specimen Anatomical Collection Method Collection Time Receive d Time (Source) Location / / Volume Laterality Blood (Blood, 03/30/2019 11:42 03/30/2019 Venous) AM CDT 11:51 AM CDT Trent Ferrer M.D. LAB BLOOD ADD-ON Performing Organization Address City/State/ZIP Code Phon e Number [facility]IES - [address] [place] [address] [facility] ECG 12 Lead (03/30/2019 9:30 AM CDT) P athologist Signature Ventricular Rate 53 BPM MUSE ECG/Min GA Interval 150 ms MUSE QRSD Interval 84 ms MUSE QT Interval 452 ms MUSE QTC Interval 424 ms MUSE P [place] 7 degrees MUSE R [place] -11 degrees MUSE T Wave [place] 1 degrees MUSE Specimen Anatomical Collection Method [...] Potassium, S 4.1 3.6 - 5.2 03/30/2019 [facility] mmol/L 7:41 AM CDT LABORATORIES - [facility] Sodium, S 141 135 - 145 03/30/2019 [facility] mmol/L 7:41 AM CDT LABORATORIES - [facility] Chloride, S 106 98 - 107 03/30/2019 [facility] mmol/L 7:41 AM CDT LABORATORIES - [facility] Bicarbonate, S 24 22 - 29 03/30/2019 [facility] mmol/L 7:41 AM CDT LABORATORIES - [facility] Anion Gap 11 7 - 15 03/30/2019 [facility] 7:41 AM CDT LABORATORIES - [facility] BUN (Blood Urea 14 6 - 21 03/30/2019 [facility] Nitrogen), S mg/dL 7:41 AM CDT LABORATORIES - [facility] Creatinine 0.73 0.59 - 03/30/2019 [facility] 1.04 mg/dL 7:41 AM CDT [facility] eGFR-Non >90 >=60 03/30/2019 [facility] Black/ mL/min/BSA 7:41 AM CDT LABORATORIES [facility] Comment: ----ADDITIONAL INFORMATION---- Estimated GFR calculated using the 2009 CKD_EPI creatinine equation. eGFR-Black/ >90 >=60 mL/min/BSA 03/30/2019 7:41 [facility] CDT LAB[facility]ATORIES [facility] Comment: ----ADDITIONAL INFORMATION---- Estimated GFR calculated using the 2009 CKD_EPI creatinine equation. Calcium, Total, S 8.9 8.6 - 10.0 mg/dL 03/30/2019 7:41 AM [facility] S Glucose, S 100 70 - 140 mg/dL 03/30/2019 7:41 AM [facility] CDT [facility] S Specimen Anatomical Collection Method Collection Time Receive d Time (Source) Location / / Volume Laterality Blood (Blood, 03/30/2019 6:21 AM 03/30/20 19 6:52 Venous) CDT AM CDT Trent Ferrer M.D. LAB BLOOD ADD-ON Performing Organization Address City/State/ZIP Code Phon e Number [facility] - [address] (ABNORMAL) CBC without Differential (03/30/2019 6:21 AM CDT) [facility] Method Time Signature Hemoglobin 12.5 11.6 - 03/30/2019 [facility] 15.0 g/dL 6:54 AM CDT [facility]IES [facility] Hematocrit 37.9 35.5 - 03/30/2019 [facility] 44.9 % 6:54 AM CDT [facility]ATORIES [facility] Erythrocytes 3.87 (L) 3.92 - 03/30/2019 [facility] 5.13 6:54 AM CDT LABORATORIES - x10(12)/L [facility] MCV 97.9 78.2 - 03/30/2019 [facility] 97.9 fL 6:54 AM CDT [facility]ATORIES [facility] RBC Distrib 13.5 12.2 - 03/30/2019 [facility] Width 16.1 % 6:54 AM CDT [facility]ATORIES [facility] Platelet Count 245 157 - 371 03/30/2019 [facility] x10(9)/L 6:54 AM CDT LABORATORIES - [facility] Leukocytes 4.1 3.4 - 9.6 03/30/2019 [facility] x10(9)/L 6:54 AM CDT LABORATORIES - [facility] Specimen Anatomical Collection Method Collection Time Receive d Time (Source) Location / / Volume Laterality Blood (Blood, 03/30/2019 6:21 AM 03/30/20 19 6:44 Venous) CDT AM CDT Trent Ferrer M.D. LAB BLOOD ADD-ON Performing Organization Address [facility] Phon e Number [facility] - [address] [place] [address] [facility] Coagulation Factor II Activity Assay (03/30/2019 6:20 AM CDT) athologist Signature Coag Factor II 93 75 - 145 % 03/30/2019 [facility] Assay, P 11:53 AM CDT [facility] Comment: ----ADDITIONAL INFORMATION---- This test has been modified from the [place] artr's instructions. Its performance characteri stics were determined by [facility] in a manner co nsistent with CLIA requirements. This test has not bee n cleared or approved by the U.S. Food and Drug Admin istration. Specimen Anatomical Collection Method Collection Time Receive d Time (Source) Location / / Volume Laterality Blood 03/30/2019 6:20 AM 9 CDT 11:12 AM CDT Trent Ferrer M.D. LAB BLOOD ADD-ON Performing Organization Address [facility] Phon e Number [facility]IES - [address] [place] [address] [facility] Protein S Antigen, Total (03/30/2019 6:20 AM CDT) athologist Signature Protein S Ag, 91 80 - 160 % 03/30/2019 [facility] Total, P 11:04 AM CDT [facility] Comment: ----ADDITIONAL INFORMATION---- This test has been modified from the [place] appEatITacturer's instructions. Its performance characteri stics were determined by [facility] in a manner co nsistent with CLIA requirements. This test has not bee n cleared or approved by the U.S. Food and Drug Admin istration. Specimen Anatomical Collection Method Collection Time Receive d Time (Source) Location / / Volume Laterality Blood 03/30/2019 6:20 AM 9 7:17 CDT AM CDT Trent Ferrer M.D. LAB BLOOD NON ADD-ON Performing Organization Address City/[facility] Phon e Number [facility]ATORIES - [address] [place], [place] [address] [facility] Reptilase Time, Plasma (03/30/2019 6:20 AM CDT) athologist Signature Reptilase 17 14 - 23 03/30/2019 [facility] Time, P sec 9:49 AM CDT [facility] Comment: ----ADDITIONAL INFORMATION---- This test has been modified from the kyle cordovar's instructions. Its performance characteri stics were determined by [facility] in a manner co nsistent with CLIA requirements. This test has not bee n cleared or approved by the U.S. Food and Drug Admin istration. Specimen Anatomical Collection Method Collection Time Receive d Time (Source) Location / / Volume Laterality Blood 03/30/2019 6:20 AM 9 7:17 CDT AM CDT Trent Ferrer M.D. LAB BLOOD ADD-ON Performing Organization Address City/[facility] Code Phon e Number [facility]IES - [address] [place], [place] [address] [facility] (ABNORMAL) APTT Mix 1:1 (03/30/2019 6:20 AM CDT) P athologist Signature APTT Mix 1:1 42 (H) 26 - 36 03/30/2019 [facility] sec 9:49 AM CDT [facility] Comment: ----ADDITIONAL INFORMATION---- This test has been modified from the kyle yangacturer's instructions. Its performance characteri stics were determined by [facility] in a manner co nsistent with CLIA requirements. This test has not bee n cleared or approved by the U.S. Food and Drug Admin istration. Specimen Anatomical Collection Method Collection Time Receive d Time (Source) Location / / Volume Laterality Blood 03/30/2019 6:20 AM 05/03/201 9 7:17 CDT AM CDT Trent Ferrer M.D. LAB BLOOD ADD-ON Performing Organization Address [facility] Phon e Number [facility]IES - [address] [place] [address] [facility] Heparin Anti-Xa Assay (03/30/2019 6:20 AM CDT) athologist Signature Heparin 0.38 IU/mL 03/30/2019 [facility] Anti-Xa, P 7:12 AM CDT LABORATORIES [facility] Comment: U[facility] therapeutic range: ?? 0.30-0.70 [...] LAB BLOOD NON ADD-ON Performing Organization Address City/[facility] Code Phon e Number [facility]IES - [address] [place] [address] [facility] Beta-2 Glycoprotein 1 Antibodies, IgG and IgM (03/30/2019 6:20 AM CDT) athologist Signature Beta 2 GP1 Ab <9.4 <15.0 03/30/2019 [facility] IgG, S (Negative) 7:[address] U/mL [facility] Beta 2 GP1 Ab <9.4 <15.0 03/30/2019 [facility] IgM, S (Negative) 7:[address] U/mL [facility] Specimen Anatomical Collection Method Collection Time Receive d Time (Source) Location / / Volume Laterality Blood (Blood, 03/30/2019 6:20 AM 05/03/20 19 9:55 Venous) CDT AM CDT Trent Ferrer M.D. LAB BLOOD ADD-ON Performing Organization Address City/State/ZIP Code Phon e Number [facility] [address] [place] [phone] [facility] Phospholipid (Cardiolipin) Antibodies, IgG and IgM (03/30/2019 6:20 AM CDT) P athologist Signature Phospholipid Ab <9.4 <15.0 03/30/2019 [facility] IgM, S (Negative) 3:49 PM CDT [facility] Phospholipid Ab <9.4 <15.0 03/30/2019 [facility] IgG, S (Negative) 3:49 PM CDT [facility] Specimen Anatomical Collection Method Collection Time Receive d Time (Source) Location / / Volume Laterality Blood (Blood, 03/30/2019 6:20 AM 03/30/20 19 9:55 Venous) CDT AM CDT Trent Ferrer M.D. LAB BLOOD ADD-ON Performing Organization Address City/State/ZIP Code Phon e Number [facility] [address] [place], [place] [address] [facility] (ABNORMAL) Thrombophilia Profile (03/30/2019 6:20 AM CDT) Patholo gist Method Time Signature Prothrombin Time 10.9 10.3 - 03/30/2019 [facility] (PT), P 12.8 sec 9:35 AM CDT LABORATORIES - [facility] INR 1.0 03/30/2019 [facility] 9:35 AM CDT LABORATORIES - [facility] Activated 57 (H) 26 - 36 03/30/2019 [facility] Partial sec 9:46 AM CDT LABORATORIES - Thrombopl Time, [facility] DRVVT Screen 0.7 0.0 - 1.1 03/30/2019 [facility] Ratio ratio 9:35 AM CDT LABORATORIES - [facility] Thrombin Time 73 (H) 15 - 23 03/30/2019 [facility] (Bovine), P sec 9:46 AM CDT LABORATORIES - [facility] Comment: ----ADDITIONAL INFORMATION---- This test has been modified from the man ufacturer's instructions. Its performance characteri stics were determined by [facility] in a manner co nsistent with CLIA requirements. This test has not bee n cleared or approved by the U.S. Food and Drug Admin istration. Fibrinogen, P 276 200 - 430 mg/dL 03/30/2019 10:04 AM CDT [facility] Comment: ----ADDITIONAL INFORMATION---- This test has been modified from the green river appEatITacturer's instructions. Its performance characteri stics were determined by [facility] in a manner co nsistent with CLIA requirements. This test has not bee n cleared or approved by the U.S. Food and Drug Admin istration. Fibrinogen 0.26 0.00 - 0.50 03/30/2019 12:44 PM [facility] Equivalent Units mcg/mL [facility] D-Dimer Units (DDU) 130 0 - 250 ng/mL 03/30/2019 12:44 PM [facility] D-Dimer T [facility] Soluble Fibrin <8 0.0 - 7.9 mcg/mL 03/30/2019 1:19 PM [facility] Monomer [facility] Comment: ----ADDITIONAL INFORMATION---- This test was developed and its performa nce characteristics determined by [facility] in a manner co nsistent with CLIA requirements. This test has not bee n cleared or approved by the U.S. Food and Drug Admin istration. Antithrombin Activity, 99 80 - 130 % 03/30/2019 10:05 AM [facility] P [facility] Comment: ----ADDITIONAL INFORMATION---- This test has been modified from the [place] river appEatITacturer's instructions. Its performance characteri stics were determined by [facility] in a manner co nsistent with CLIA requirements. This test has not bee n cleared or approved by the U.S. Food and Drug Admin istration. Protein C Activity, P 131 70 - 150 % 03/30/2019 9:33 A M T [facility] Comment: ----ADDITIONAL INFORMATION---- This test has been modified from the green river appEatITacturer's instructions. Its performance characteri stics were determined by [facility] in a manner co nsistent with CLIA requirements. This test has not bee n cleared or approved by the U.S. Food and Drug Admin istration. Protein S Ag, Free, 59 (L) 65 - 160 % 03/30/2019 10:19 AM [facility] P CDT LABORATORIES - [facility] Chloe Comment: ----ADDITIONAL INFORMATION---- This test has been modified from the green river appEatITacturer's instructions. Its performance characteri stics were determined by [facility] in a manner co nsistent with CLIA requirements. This test has not bee n cleared or approved by the U.S. Food and Drug Admin istration. APCRV Ratio 3.0 >or=2.3 03/30/2019 10:11 [facility] AM CDT LABORATORIES [facility] Prothrombin [id number] Negative Negative 04/02/2019 5:19 [facility] Mutation, B PM CDT LABORATORIES [facility] PTNT Reviewed By Lewis Moreno, 04/02/2019 5:19 [facility] MBBS CDT LABORATORIES [facility] PTNT Interpretation This individual DOES NOT hav e the Prothrombin [id number] mutation. Although the 04/02/2019 5:19 [facility] Prothrombin [id number] mutation is absent, the chloe pearl may have other genetic CDT LABORATORIES - and environmental risk factors for thrombosis. Alanna r genetic consultation [facility] and counseling of potentially affected family members [facility] testing. Comment: ----ADDITIONAL INFORMATION---- This test is a direct mutation analysis using PCR amplification, signal generation and release by cleavage of se quence specific alleles ([employer], [employer], [place], [place]). This test has been modified from the green river appEatITacturer's instructions. Its performance characteristics were determi jayesh by [facility] in a manner consistent with CLIA requirements. This test has not been cleared or approved by the U.S. Food and Drug Administration . Reviewed by: Milad Emerson M.D. 04/03/2019 1:35 PM [facility] CDT LABORATORIES [facility] Interpretation ?Type of Study: ?? Thrombophilia Profile 04/03/2019 1:35 PM [facility] ?IMPRESSION: ??1) Decreased protein S free antigen, a cquired versus CDT LABORATORIES - congenital. ??See comments and suggest clinical correlation. [facility] ?2) Data are consistent with the [...] patient does n ot have the prothrombin [id number] mutation. ?Separately performed and reported testing for beta-2 glycoprotein I and anticardiolipin antibodies (IgG and IgM isotypes) demonstrat ed normal results, providing no evidence of antiphospholipid antibodie s by these methodologies. Specimen Anatomical Collection Method Collection Time Receive d Time (Source) Location / / Volume Laterality Blood (Blood, 03/30/2019 6:20 AM 03/30/20 19 8:13 Venous) CDT AM CDT Narrative [facility] - 04/03/2019 1:37 PM CDT Specimen Information: Specimen ID: [id number] Specimen Type: Blood Specimen Collection Start Date: 9 ??6:20 AM Specimen Received Date: 03/30/2019 ??8:13 AM Specimen ID: [id number] Specimen Type: Blood Specimen Collection Start Date: ??6:20 AM Specimen Received Date: 03/30/2019 ??7:17 AM Specimen ID: [id number] Specimen Type: Blood Specimen Collection Start Date: ??6:20 AM Specimen Received Date: 03/30/2019 ??7:17 AM Specimen ID: [id number] Specimen Type: Blood Specimen Collection Start Date: ??6:20 AM Specimen Received Date: 03/30/2019 ??7:17 AM Specimen ID: [id number] Specimen Type: Blood Specimen Collection Start Date: ??6:20 AM Specimen Received Date: 03/30/2019 ??7:17 AM Specimen ID: [id number] Specimen Type: Blood Specimen Collection Start Date: ??6:20 AM Specimen Received Date: 03/30/2019 ??7:17 AM Trent Ferrer M.D. LAB BLOOD NON ADD-ON Performing Organization Address City/State/ZIP Code Phon e Number [facility] - [address] [place] [address] [facility] Heparin Anti-Xa Assay (03/29/2019 11:28 PM CDT) P athologist Signature Heparin 0.31 IU/mL 03/30/2019 [facility] Anti-Xa, P 12:05 AM CDT LABORATORIES - [facility] Comment: [facility] therapeutic range: ?? [...] LAB BLOOD NON ADD-ON Performing Organization Address City/[facility] Phon e Number [facility] LABORATORIES - [address] [place] [address] 05 [facility] Hemoglobin A1c (03/29/2019 6:05 PM CDT) Analysis Performed At Path logist Time Signature Hemoglobin A1c, 5.6 4.0 - 5.6 03/29/2019 [facility] B % 6:50 PM CDT [facility] Specimen Anatomical Collection Method Collection Time Receive d Time (Source) Location / / Volume Laterality Blood (Blood, 03/29/2019 6:05 PM 03/29/20 19 6:28 Venous) CDT PM CDT Trent Ferrer M.D. LAB BLOOD ADD-ON Performing Organization Address City/[facility] Phon e Number [facility] LABORATORIES - [address] [place] [phone] [facility] (ABNORMAL) Lipid Panel (03/29/2019 6:05 PM CDT) [facility] Method Time Signature Cholesterol, 204 (H) mg/dL 03/29/2019 [facility] Total 7:09 PM CDT [facility] Comment: ----REFERENCE VALUE---- Desirable: < 200 Borderline high: 200 - 239 High: > or = 240 Triglycerides 104 mg/dL 03/29/2019 7:09 PM CDT [facility] Comment: ----REFERENCE VALUE---- Normal: <150 Borderline high: 150-199 High: 200-499 Very high: > or =500 Cholesterol, HDL, S 91 >=50 mg/dL 03/29/2019 7:09 PM CDT [facility] Calculated LDL 92 mg/dL 03/29/2019 7:09 PM CDT [facility] Comment: ----REFERENCE VALUE---- Desirable: <100 Above Desirable: 100-129 Borderline high: 130-159 High: 160-189 Very high: > or =190 Cholesterol, Non-HDL, 113 mg/dL 03/29/2019 7:0 9 PM CDT [facility] LABORATORIES Calculated - [facility] Comment: ----REFERENCE VALUE---- Desirable: <130 Above Desirable: 130-159 Borderline high: 160-189 High: 190-219 Very high: > or =220 Specimen Anatomical Collection Method Collection Time Receive d Time (Source) Location / / Volume Laterality Blood (Blood, 03/29/2019 6:05 PM 03/29/20 19 6:28 Venous) CDT PM CDT Trent Ferrer M.D. LAB BLOOD ADD-ON Performing Organization Address City/[facility]/ZIP Code Phon e Number [facility] - [address] [place] [phone] [facility] S-TSH (Thyroid-Stimulating Hormone - Sensitive) (03/29/2019 6:05 PM CDT) athologist Signature TSH, Sensitive 1.6 0.3 - 4.2 03/29/2019 [facility] mIU/L 7:09 PM CDT [facility] Specimen Anatomical Collection Method Collection Time Receive d Time (Source) Location / / Volume Laterality Blood (Blood, 03/29/2019 6:05 PM 03/29/20 19 6:28 Venous) CDT PM CDT Trent Ferrer M.D. LAB BLOOD ADD-ON Performing Organization Address City/[facility]/ZIP Code Phon e Number [facility] LABORATORIES - [address] APTT (Activated Partial Thromboplastin Time) (03/29/2019 4:46 PM CDT) athologist Signature Activated 29 25 - 37 03/29/2019 [facility] Partial sec 5:01 PM CDT LABORATORIES - [facility] Specimen Anatomical Collection Method Collection Time Receive d Time (Source) Location / / Volume Laterality Blood (Blood, 03/29/2019 4:46 PM 03/29/20 19 4:52 Venous) CDT PM CDT Trent Ferrer M.D. LAB BLOOD ADD-ON Performing Organization Address City/[facility]/ZIP Code Phon e Number [facility] LABORATORIES - [address] Head Neck Angiogram with IV [...] gs discussed at 2:03 p.m with pager [phone] Narrative 03/29/2019 4:34 PM CDT EXAM: CT [...] gs discussed at 2:03 p.m with pager [phone] Eliseo Mejias M.D. IMG CT PROCEDURES CT [...] gs discussed at 2:03 p.m with pager [phone] Narrative 03/29/2019 4:34 PM CDT EXAM: CT [...] gs discussed at 2:03 p.m with pager [phone] Eliseo Mejias M.D. IMGeronimo CT PROCEDURES (ABNORMAL) CBC with Differential, Blood (03/29/2019 2:04 PM CDT) [facility] gist Method Time Signature Hemoglobin 12.4 11.6 - 03/29/2019 [facility] 15.0 g/dL 2:11 PM CDT LABORATORIES - [facility] Hematocrit 37.0 35.5 - 03/29/2019 [facility] 44.9 % 2:11 PM CDT LABORATORIES - [facility] Erythrocytes 3.79 (L) 3.92 - 03/29/2019 [facility] 5.13 2:11 PM CDT LABORATORIES - x10(12)/L [facility] MCV 97.6 78.2 - 03/29/2019 [facility] 97.9 fL 2:11 PM CDT LABORATORIES - [facility] RBC Distrib 13.3 12.2 - 03/29/2019 [facility] Width 16.1 % 2:11 PM CDT LABORATORIES - [facility] Platelet Count 238 157 - 371 03/29/2019 [facility] x10(9)/L 2:11 PM CDT LABORATORIES - [facility] Leukocytes 4.7 3.4 - 9.6 03/29/2019 [facility] x10(9)/L 2:11 PM CDT LABORATORIES - [facility] Neutrophils 2.33 1.56 - 03/29/2019 [facility] 6.45 2:11 PM CDT LABORATORIES - x10(9)/L [facility] Lymphocytes 1.74 0.95 - 03/29/2019 [facility] 3.07 2:11 PM CDT LABORATORIES - x10(9)/L [facility] Monocytes 0.32 0.26 - 03/29/2019 [facility] 0.81 2:11 PM CDT LABORATORIES - x10(9)/L [facility] Eosinophils 0.22 0.03 - 03/29/2019 [facility] 0.48 2:11 PM CDT LABORATORIES - x10(9)/L [facility] Basophils 0.04 0.01 - 03/29/2019 [facility] 0.08 2:11 PM CDT LABORATORIES - x10(9)/L [facility] Specimen Anatomical Collection Method Collection Time Receive d Time (Source) Location / / Volume Laterality Blood (Blood, 03/29/2019 2:04 PM 03/29/20 19 2:08 Venous) CDT PM CDT Eliseo Mejias M.D. LAB BLOOD ADD-ON Performing Organization Address City/State/ZIP Code Phon e Number [facility] LABORATORIES - [address] [place], [place] [address] [facility] Basic Metabolic Panel (03/29/2019 2:04 PM CDT) Analysis Performed At [facility] logist Time Signature Potassium, P 4.0 3.6 - 5.2 03/29/2019 [facility] mmol/L 2:24 PM CDT LABORATORIES [facility] Sodium, P 142 135 - 145 03/29/2019 [facility] mmol/L 2:24 PM CDT LABORATORIES [facility] Chloride, P 107 98 - 107 03/29/2019 [facility] mmol/L 2:24 PM CDT LABORATORIES [facility] Bicarbonate, P 24 22 - 29 03/29/2019 [facility] mmol/L 2:24 PM CDT LABORATORIES [facility] Anion Gap, P 11 7 - 15 03/29/2019 [facility] 2:24 PM CDT [facility] BUN (Blood Urea 17 6 - 21 03/29/2019 [facility] Nitrogen), P mg/dL 2:24 PM T [facility] Creatinine 0.81 0.59 - 03/29/2019 [facility] 1.04 mg/dL 2:24 PM T [facility] eGFR-Black/Afri >90 >=60 03/29/2019 [facility] can [place] mL/min/BSA 2:24 PM CDT [facility] Comment: ----ADDITIONAL INFORMATION---- Estimated GFR calculated using the 2009 CKD_EPI creatinine equation. eGFR Non-Black/ 82 >=60 mL/min/BSA 03/29/2019 2:24 PM [facility] [place] T [facility] Comment: ----ADDITIONAL INFORMATION---- Estimated GFR calculated using the 2009 CKD_EPI creatinine equation. Calcium, Total, P 8.7 8.6 - 10.0 mg/dL 03/29/2019 2:24 PM [facility] CDT [facility] Glucose, P 101 70 - 140 mg/dL 03/29/2019 2:24 [facility] Specimen Anatomical Collection Method Collection Time Receive d Time (Source) Location / / Volume Laterality Blood (Blood, 03/29/2019 2:04 PM 03/29/20 2:08 Venous) CDT PM CDT Eliseo Mejias M.D. 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 Nicotine Dependence Cigarettes Thrombosis Arterial (HCC) Aneurysm Cerebral Unruptured (HCC) Patent Foramen Ovale (HCC) Stroke (HCC) Thrombosis [...] (VITAMIN B12) 0854 (Given - Provider: Sofie Sutton, R.N.) 5,000 mcg, oral, Daily, First dose (afte r last modification) on Tue03/31/19 at 0900 cycloSPORINE 0.05 % ophthalmic emulsion 1 drop (RESTASIS) 2108 (Given - Provider: Marlene Irwin RBrittonN.) 0855 (Given - Provider: Christiano Gan .N.) 1 drop, both eyes, 2 times daily, First dose (after last modification) on Tue03/30/19 at 2100 enoxaparin injection 70 mg (LOVENOX) 210 9 (Given - Provider: Marlene Irwin, R.N.) 0900 (Given - Provider: Sofie Sutton, R .N.) 70 mg, subcutaneous, 2 times daily, Firs t dose on Tue03/30/19 at 2100, Please do teaching as planning to discharge on enoxaparin bridge to warfarin FLUoxetine capsule 60 mg (PROzac) 0858 ( Given - Provider: Julieth Velasquez, R.N.) 0855 (Given - Provider: Sofie Sutton R .N.) 60 mg, oral, Daily, First dose on 02/13 at 0900, FLUoxetine orderable was interchanged for FLUoxetine tablet/capsule fluticasone furoate-vilanterol 200-25 mc g/act inhaler 1 puff (BREO ELLIPTA DISKUS) 0858 (Not Given - Provider: Julieth Whitt, R.N. - Reason: Patient/family refused) 0855 (Given - Provider: Christiano GanN.) 1 puff, inhalation, Daily (RT), First do [...] mg (LASIX) (CANCELED) 0858 (Given - Provider: Sharifa MoyerNBritton) 40 mg, oral, Daily, First dose on [...] refused) 0906 (Given - Provider: Julieth Whitt RBetsy) 3 mL, nebulization, 2 times daily, First [...] (CLARITIN) 0859 (Given - Provider: Julieth Velasquez RBetsy) 0855 (Given - Provider: Christiano Gan) 10 [...] 0900 (Not Given - Provider: Sofie valentine RRebekah. - Reason: Patient/family refused) 17 g, oral, Daily, First dose on 03/30 at 0900, 17 g = 1 heaping Tablespoon. Dissolve in 240 mLs (8 ounces) of water prior to giving. Avoid mixing with starch-based thickened liquids. potassium chloride ER tablet 20 mEq (KLORCON/K-TAB) 0859 (Given - Provider: Julieth Whitt RBrittonNBritton) 0855 (Given - Provider: Christiano Gan) 20 mEq, oral, Daily with breakfast, Firs t dose on Tue03/30/19 at 0800, potassium chloride orderable was interchanged for potassium chloride tablet/capsule Swallow whole. Do NOT crush, chew, or split tablet. pregabalin capsule 150 mg (LYRICA) (CANCELED) 2020 (Gi saeid - Provider: Makenzie Childs R.N.) 0858 (Given - Provider: Julieth Whitt RBrittonNBritton) 150 mg, oral, 2 times daily, First dose on Clementine 03/29/19 at 2100 pregabalin capsule 150 mg (LYRICA) 0855 (Given - Provider: Sofie Sutton R.N.) 150 mg, oral, Daily, First dose (after last modificati on) on 03/31/19 at 0900 pregabalin capsule 450 mg (LYRICA) 1705 (Given - Provider: Marlene Irwin RBetsy) 450 mg, oral, Every evening, First dose on Tue03/30/19 at 1800 prochlorperazine injection 10 mg (COMPAZINE) (COMPLETE D) 1402 (Given - Provider: Isaura Nielsen RBetsy) 10 mg, intravenous, Once, On Clementine 03/29/19 at 1353, For 1 dose sodium chloride (PF) 0.9 % injection 1-100 mL (COMPLET ED) 1527 (Given - Provider: Princess Atkins RBrittonNBritton) 1-100 mL, intravenous, Once, On Clementine at [...] R.N.) 0859 (Given - Provider: Julieth Velasquez RBetsy)210 (Given - Provider: Marlene Irwin R.N.) 0854 (Given - Provider: Christiano Gan) 300 mg, oral, 2 times daily, First dose on Clementine 03/29/19 at 2100, Swallow whole. Do NOT crush, chew or open capsule. Continuous Medication Order 03/29/2019 03/30/2019 03/31/2019 heparin (porcine) 100 Units/mL in D5W 250 mL infusion () 1723 (New Bag - Provider: Steven Carrillo R.N.)1807 (Canceled Entry - Provider: Steven M Lorena, R.N. - Comment: Due time populated when [...] - Provider: Christiano Vaz.N.)1554 (Given - Provider: Ana Rosa Gordon R.N.) [...] (LMX) 1 application, topical, 4 times daily GA N, mild pain or score 1-3 of [...] A-D) (CANCELED) 1321 (Given - Provider: Julieth Whitt, R.N.) 2 mg, oral, 4 times daily [...] - Provider: Christiano Vaz.N.)1540 (Given - Provider: Sharifa VazN.)1554 (Given - Provider: Ana Rosa Gordon R.N.) [...] 2345 (Given - Pr ovider: Makenzie Childs RBrittonN.) 0638 (Given - Provider: Christiano McdonoughN.)1315 (Given - Provider: Julieth Whitt RBrittonN.)2133 (Given - Provider: Marlene Irwin RRebekah.) 0334 (Given - Provider: Makenzie Childs R.N.)1236 (Given - Provider: Jerica Keller R.NBritton) 5 [...]
--- OUTSIDE RECORDS SUMMARY | 2022-09-14 12:10 | XMS_ITS | Encounter Summary ---
:[address] [facility] Address [address] [place] [address] Care Team Providers Name Role Phone Unavailable Primary Care Provider Unavailable Reason for Visit Reason Onset Date Comments Prior Medical Records/Sinus CT 03/02/2019 Encounter Details Date Type Department Care Team Description 03/02/2019 Clinical Department of Honorio, Prior Medical Communication Otorhinolaryngology in [place] rds/Sinus CT [place], [place] Lilian 200 [facility] [address] [place] [phone] [place] [address] Social History Tobacco Use Types Packs/Day Years [...] AM CDT Per Kaykay (Dr. Olmedo), [facility] (Dr. Mckeon) ([phone]) was contacted. The previousmedical records have been received and sent for scanning into pt's chart[facility] will be pushed. Coby documented in this encounter Plan of Treatment Not on filedocumented as of this encounter Visit Diagnoses Not on filedocumented in this encounter
--- OUTSIDE RECORDS SUMMARY | 2022-09-14 12:10 | XMS_ITS | Encounter Summary ---
:1965 Author Organization [facility] Address [address] [place] [address] Care Team Providers Name Role Phone Unavailable [...]
--- OUTSIDE RECORDS SUMMARY | 2022-09-14 12:10 | XMS_ITS | Encounter Summary ---
:1965 Author Organization [facility] Address [address] [place] [address] Care Team Providers Name Role Phone Unavailable Primary Care Provider Unavailable Encounter Details Date Type Department Care Team Description 04/04/2019 - Hospital Encounter [facility] Blanca, Stroke (H [facility]) (Primary Dx); 04/05/2019 [facility] M.D. Decline Functional Status; [facility], [address] [place] [address] Second floor [id number] [place] [address] [place], [place] (Work) [phone] Social History Tobacco Use [...] you attend uatsdin or Patient refused 2021 sikhism services? Do [...] up with your primary care provider in [place], [place] for ongoing monitoring of this. - Follow-up in [facility] (Dr. Diehl) in approximately 3 months??? [...] use disorder who initially was admitted to [facility] from 03/29/2019 to 03/31/2019 after presenting [...] use disorder who initially was admitted to [facility] from 03/29/2019 to 03/31/2019 after presenting [...] up with your primary care provider in [place], [place] for ongoing monitoring of this. - Follow-up in [facility] (Dr. Diehl) in approximately 3 months??? time with repeat CTA head/neck at that time. - Additional CTA in approximately 1 year (March 2020) to follow up paraclinoid ICA aneurysm. Discharge Instr - Jessie Ambrose P.T., D.P.T. - 04/05/2019 2:09 PM CDT Physical Therapy Discharge Summary MOBILITY RESTRICTIONS/PRECAUTIONS: Weight bearing: Weight bearing as tolerated Other: fall risk and other: visual changes CURRENT FUNCTIONAL STATUS: Patient currently independent in bed mobility. Mobilizing with supervision only on level surfaces with therapist managing helper electrical while inpatient. Stairs not assessed. RECOMMENDATIONS: Recommend initial supervision upon return to home. If difficulty with balance or mobility persists upon return to home, then recommend physical therapy evaluate and treat. Frequency and duration to be determined by the evaluating therapist. Will need to obtain a prescription for outpatient physical therapy from your physician. Discharge information provided on 04/05/2019 by Jessie aCndelario P.T., D.P.T. Contact information: [facility], [address] Beryl Gaytan, Laquita Guardado - 04/05/2019 7:21 AM CDT Take a copy of this after visit summary to your appointment(s). [place] April 10, 2019 -Tuesday --11:15 AM - Hospital Follow-Up with Dr. Rosalva MD Colleague of Juana Franz MD primary care provider, at [facility] RECOMMENDATIONS: * * [facility] You may have outpatient appointments at [facility] that changed during your hospitalization. Refer to your [facility] Patient Visit Guide (PVG) for the most current schedule of appointments and detailed instructions of tests/procedures. Call [phone], if you did not receive an PVG [...] No acute overnight events. Vertigo has improved. Kwlu-ei-njdtlvfk headache continues. No new symptoms or concerns. [...] 0 I/O / 0701 - /08 0700 05/ 0701 - / 0700 05/ 0701 - 04/06 0700 Crystalloid Bolus 2.5 [...] use disorder who initially was admitted to [facility] from 03/29/2019 to 03/31/2019 after presenting [...] being followed by a provider at the [facility]. Dose was increased to 1.5 tabs (of 5 mg) on Monday 04/02. Her INR is 1.8 today. Will continue 7.5 mg tonight. Pharmacist team will continue to follow patient's clinical progress daily until discharge from the hospital. Coby Limon PharmBrittonD., R.Ph. documented in this encounter H&P Notes [...] Noted ??? Rhinosinusitis Chronic 03/01/2019 ??? Stroke ([facility]) 03/29/2019 ??? Anxiety Generalized Disorder 03/29/2019 ??? Chronic Pain Syndrome 03/29/2019 ??? Fibromyalgia 03/29/2019 ??? 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 Sinusitis Recurrent 03/29/2019 ??? 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 Nicotine Dependence Cigarettes 03/29/2019 ??? 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 Transient Ischemic Attack ??? Aneurysm Cerebral Unruptured ([facility]) 03/30/2019 ??? Patent Foramen Ovale ([facility]) 03/31/2019 Current Facility-Administered Medications: ??? acetaminophen tablet 1,000 mg (TYLENOL), 1,000 mg, oral, Q6H, Beau Hall M.D., 1,000 mg at 04/05/19 0831 ??? albuterol 90 mcg/actuation inhaler 2 puff (PROVENTIL HFA,VENTOLIN HFA), 2 puff, inhalation, Q6H PRN, AbaClemente brown M.D. ??? albuterol nebulizer solution 2.5 mg (ACCUNEB), 2.5 mg, nebulization, Q6H PRN, AbarbClemente lau M.D. ??? alum-mag hydroxide-simeth 200-200-20 mg/5 mL suspension 30 mL (MAALOX), 30 mL, oral, Q4H PRN, Abarbanel, Clemente N, M.D. ??? atorvastatin tablet 40 mg (LIPITOR), 40 mg, oral, Daily at bedtime, Clemente Aiken M.D., 40mg at 04/04/198 ??? benzonatate capsule 200 mg (TESSALON PERLES), [...] 40 mg (LASIX), 40 mg, oral, BID, Juan AntoniorbanelClemente M.D., 40 mg at 04/05/19 ??? lamoTRIgine tablet 200 mg (LaMICtal), 200 mg, oral, BID, Clemente Aiken M.D., 200 mg at ??? lidocaine 5 % 1 patch (LIDODERM), 1 patch, transdermal, Daily, Juan AntoniorbanelClemente M.D., 1 patch ??? LORazepam tablet 0.5 [...] mg (ROXICODONE), 5 mg, oral, 5x Daily, AbarbanelClemente M.D., 5 mg ??? pantoprazole DR tablet 40 mg (PROTONIX), 40 mg, oral, Daily before breakfast, Clemente Aiken ??? polyethylene glycol powder packet 17 g (MIRALAX), 17 g, oral, At bedtime PRN, Clemente Aiken, ??? pregabalin capsule 150 mg (LYRICA), 150 mg, oral, Daily, AbarbanelClemente M.D., 150 mg at ??? pregabalin capsule 450 mg (LYRICA), 450 mg, oral, Daily at bedtime, Abarbanel, Clemente N, M.D., 450 ??? promethazine tablet 25 mg [...] shows no new changes. MRI may not supervisor policy change clerks at this point as she is now [...] 0 and symmetric in all muscle groups. Xqliml-dent-ptbzea and heel- montes testing is normal. Deep [...] to clarify this, but would not necessarily supervisor policy change clerks. An MRI brain with and without contrast [...] baseline. Have triaged to therapy only; no reserves clerk consult appears to be necessary at this time. If at any time, the therapists or referring service feel that a reserves clerk review is necessary, please send a new [...] Prior Function / Occupational Profile Level of [facility]: Independent with ADLs and functional transfers Lives [...] Goal Met 04/05/19 Progress: Improving as expected @[id number])@ Plan Patient agrees with the plan of [...] Prior Function / Occupational Profile Level of [facility]: Independent with ADLs and functional transfers Lives [...] for safety and for therapist to bring helper electrical, no obvious loss of balance noted, patient appeared steady with quick turns Training/Intervention: supervision for therapist to bring helper electrical Response: Patient mobilizing 200+ meters with no [...] for safety and for therapist to bring helper electrical, no obvious loss of balance noted, patient appeared steady with quick turns Training/Intervention: supervision for therapist to bring helper electrical Response: Patient mobilizing 200+ meters with no [...] min Functional G-code Worksheet Jessie Candelario P.T., Juice.P.TBritton documented in this encounter Nursing Notes Dia [...] use disorder who initially was admitted to [facility] from 03/29/2019 to 03/31/2019 after presenting [...] Potassium, S 4.1 3.6 - 5.2 04/05/2019 [facility] mmol/L 9:28 AM CDT LABORATORIES - [facility] Sodium, S 142 135 - 145 04/05/2019 [facility] mmol/L 9:28 AM CDT LAB[facility]ATORIES - [facility] Chloride, S 105 98 - 107 04/05/2019 [facility] mmol/L 9:28 AM CDT [facility]ATORIES - [facility] Bicarbonate, S 25 22 - 29 04/05/2019 [facility] mmol/L 9:28 AM CDT LAB[facility]ATORIES - [facility] Anion Gap 12 7 - 15 04/05/2019 [facility] 9:28 AM CDT LABORATORIES [facility] BUN (Blood Urea 20 6 - 21 04/05/2019 [facility] Nitrogen), S mg/dL 9:28 AM CDT LABORATORIES - [facility] Creatinine 0.88 0.59 - 04/05/2019 [facility] 1.04 mg/dL 9:28 AM CDT [facility]ATORIES [facility] eGFR-Non 74 >=60 04/05/2019 [facility] Black/ mL/min/BSA 9:28 AM CDT LABORATORIES [facility] Comment: ----ADDITIONAL INFORMATION---- Estimated GFR calculated using the 2009 CKD_EPI creatinine equation. eGFR-Black/ 86 >=60 mL/min/BSA 04/05/2019 9:28 [facility] [place] CDT [facility]IES [facility] Comment: ----ADDITIONAL INFORMATION---- Estimated GFR calculated using the 2009 CKD_EPI creatinine equation. Calcium, Total, S 9.2 8.6 - 10.0 mg/dL 04/05/2019 9:28 AM [facility] CDT [facility] Glucose, S 124 70 - 140 mg/dL 04/05/2019 9:28 AM [facility] CDT [facility] S Specimen Anatomical Collection Method Collection Time Receive d Time (Source) Location / / Volume Laterality Blood (Blood, 04/05/2019 8:07 AM 04/05/20 19 8:26 Venous) CDT AM CDT Clemente Aiken M.D. LAB BLOOD ADD-ON Performing Organization Address City/State/ZIP Code Phon e Number [facility]ATORIES - [address] [place] [address] [facility] CBC with Differential, Blood (04/05/2019 8:07 AM CDT) [facility] Method Time Signature Hemoglobin 12.9 11.6 - 04/05/2019 [facility] 15.0 g/dL 8:38 AM CDT [facility]ATORIES [facility] Hematocrit 38.0 35.5 - 04/05/2019 [facility] 44.9 % 8:38 AM CDT [facility] Erythrocytes 3.94 3.92 - 04/05/2019 [facility] 5.13 8:38 AM CDT LABORATORIES - x10(12)/L [facility] MCV 96.4 78.2 - 04/05/2019 [facility] 97.9 fL 8:38 AM CDT LAB[facility]ATORIES [facility] RBC Distrib Width 13.2 12.2 - 04/05/2019 [facility] 16.1 % 8:38 AM CDT [facility]ATORIES - [facility] Platelet Count 226 157 - 371 04/05/2019 [facility] x10(9)/L 8:38 AM CDT [facility]ATORIES - [facility] Leukocytes 5.5 3.4 - 9.6 04/05/2019 [facility] x10(9)/L 8:38 AM CDT [facility]ATORIES - [facility] Neutrophils 3.00 1.56 - 04/05/2019 [facility] 6.45 8:38 AM CDT LABORATORIES - x10(9)/L [facility] Lymphocytes 1.84 0.95 - 04/05/2019 [facility] 3.07 8:38 AM CDT LABORATORIES - x10(9)/L [facility] Monocytes 0.37 0.26 - 04/05/2019 [facility] 0.81 8:38 AM CDT LABORATORIES - x10(9)/L [facility] Eosinophils 0.22 0.03 - 04/05/2019 [facility] 0.48 8:38 AM CDT LABORATORIES - x10(9)/L [facility] Basophils 0.05 0.01 - 04/05/2019 [facility] 0.08 8:38 AM CDT LABORATORIES - x10(9)/L [facility] Specimen Anatomical Collection Method Collection Time Receive d Time (Source) Location / / Volume Laterality Blood (Blood, 04/05/2019 8:07 AM 04/05/20 19 8:26 Venous) CDT AM CDT Clemente Aiken M.D. LAB BLOOD ADD-ON Performing Organization Address City/State/ZIP Code Phon e Number [facility]ATORIES - [address] [place] [address] [facility] (ABNORMAL) Prothrombin Time (PT/INR) (04/05/2019 8:07 AM CDT) [facility] gist Method Time Signature Prothrombin 21.9 (H) 9.4 - 04/05/2019 [facility] Time, P 12.5 sec 8:44 AM CDT LABORATORIES [facility] INR 2.0 0.9 - 1.1 04/05/2019 [facility] 8:44 AM CDT LAB[facility]ATORIES [facility] Comment: ----ADDITIONAL INFORMATION---- Standard intensity warfarin therapeutic range: 2.0 to 3.0 ?? High intensity warfarin therapeutic rang e: 2.5 to 3.5 Specimen Anatomical Collection Method Collection Time Receive d Time (Source) Location / / Volume Laterality Blood (Blood, 04/05/2019 8:07 AM 04/05/20 19 8:26 Venous) CDT AM CDT Clemente Aiken M.D. LAB BLOOD ADD-ON Performing Organization Address City/State/ZIP Code Phon e Number [facility]ATORIES - [address] [place], [place] [address] [facility] CT Head Neck Angiogram with IV Contrast [...] ly. Patulous esophagus containing fluid. Procedure Note Kathy, Dong Vladimir, M.D. - 04/04/2019Formatti ng of this note [...] CDT) athologist Signature Heparin 0.81 IU/mL 04/04/2019 [facility] Anti-Xa, P 7:40 PM T LABORATORIES - [facility] Comment: UFH therapeutic range: ?? 0.30-0.70 IU/mL [...] LAB BLOOD NON ADD-ON Performing Organization Address [facility] Phon e Number [facility]IES - [address] [place] [address] [facility] (ABNORMAL) Prothrombin Time (PT/INR) (04/04/2019 5:25 PM CDT) [facility] NI Method Time Signature Prothrombin 20.1 (H) 9.4 - 04/04/2019 [facility] Time, P 12.5 sec 5:54 PM CDT [facility] INR 1.8 0.9 - 1.1 04/04/2019 [facility] 5:54 PM CDT [facility] Comment: ----ADDITIONAL INFORMATION---- Standard intensity warfarin therapeutic range: 2.0 to 3.0 ?? High intensity warfarin therapeutic rang e: 2.5 to 3.5 Specimen Anatomical Collection Method Collection Time Receive d Time (Source) Location / / Volume Laterality Blood (Blood, 04/04/2019 5:25 PM 04/04/20 19 5:32 Venous) CDT PM CDT Clemente Aiken M.D. LAB BLOOD ADD-ON Performing Organization Address [facility] Phon e Number [facility]ATORIES - [address] [place] [address] [facility] (ABNORMAL) CBC with Differential, Blood (04/04/2019 5:25 PM CDT) [facility] NI Method Time Signature Hemoglobin 12.1 11.6 - 04/04/2019 [facility] 15.0 g/dL 5:35 PM CDT [facility] Hematocrit 36.3 35.5 - 04/04/2019 [facility] 44.9 % 5:35 PM CDT [facility] Erythrocytes 3.76 (L) 3.92 - 04/04/2019 [facility] 5.13 5:35 PM CDT LABORATORIES - x10(12)/L [facility] MCV 96.5 78.2 - 04/04/2019 [facility] 97.9 fL 5:35 PM CDT LABORATORIES - [facility] RBC Distrib 12.9 12.2 - 04/04/2019 [facility] Width 16.1 % 5:35 PM CDT LABORATORIES - [facility] Platelet Count 224 157 - 371 04/04/2019 [facility] x10(9)/L 5:35 PM CDT LABORATORIES - [facility] Leukocytes 4.6 3.4 - 9.6 04/04/2019 [facility] x10(9)/L 5:35 PM CDT LABORATORIES - [facility] Neutrophils 2.09 1.56 - 04/04/2019 [facility] 6.45 5:35 PM CDT LABORATORIES - x10(9)/L [facility] Lymphocytes 1.88 0.95 - 04/04/2019 [facility] 3.07 5:35 PM CDT LABORATORIES - x10(9)/L [facility] Monocytes 0.39 0.26 - 04/04/2019 [facility] 0.81 5:35 PM CDT LABORATORIES - x10(9)/L [facility] Eosinophils 0.18 0.03 - 04/04/2019 [facility] 0.48 5:35 PM CDT LABORATORIES - x10(9)/L [facility] Basophils 0.04 0.01 - 04/04/2019 [facility] 0.08 5:35 PM CDT LABORATORIES - x10(9)/L [facility] Specimen Anatomical Collection Method Collection Time Receive d Time (Source) Location / / Volume Laterality Blood (Blood, 04/04/2019 5:25 PM 04/04/20 19 5:32 Venous) CDT PM CDT Clemente Aiken M.D. LAB BLOOD ADD-ON Performing Organization Address City/State/ZIP Code Phon e Number [facility]ATORIES - [address] [place], [place] [address] [facility] (ABNORMAL) APTT (Activated Partial Thromboplastin Time) (04/04/2019 5:25 PM CDT) Analysis Performed At Patho logist Time Signature Activated 44 (H) 25 - 37 04/04/2019 [facility] Partial sec 5:57 PM CDT LABORATORIES - Thrombopl [facility] Specimen Anatomical Collection Method Collection Time Receive d Time (Source) Location / / Volume Laterality Blood (Blood, 04/04/2019 5:25 PM 04/04/20 19 5:32 Venous) CDT PM CDT Clemente Aiken M.D. LAB BLOOD ADD-ON Performing Organization Address City/[facility]/ZIP Code Phon e Number [facility]IES - [address] [place] [address] [facility] Magnesium (04/04/2019 5:25 PM CDT) P athologist Signature Magnesium, S 2.3 1.7 - 2.3 04/04/2019 [facility] mg/dL 6:21 PM CDT LABORATORIES - [facility] Specimen Anatomical Collection Method Collection Time Receive d Time (Source) Location / / Volume Laterality Blood (Blood, 04/04/2019 5:25 PM 04/04/20 19 5:40 Venous) CDT PM CDT Clemente Aiken M.D. LAB BLOOD ADD-ON Performing Organization Address City/[facility]/ZIP Code Phon e Number [facility]IES - [address] [place] [address] [facility] Phosphorus Inorganic (04/04/2019 5:25 PM CDT) Analysis Performed At Patho logist Time Signature Phosphorus 3.8 2.5 - 4.5 04/04/2019 [facility] (Inorganic), S mg/dL 6:21 PM CDT LABORATORIES - [facility] Specimen Anatomical Collection Method Collection Time Receive d Time (Source) Location / / Volume Laterality Blood (Blood, 04/04/2019 5:25 PM 04/04/20 19 5:40 Venous) CDT PM CDT Clemente Aiken M.D. LAB BLOOD ADD-ON Performing Organization Address City/[facility]/ZIP Code Phon e Number [facility]IES - [address] [place], [place] [address] [facility] (ABNORMAL) Comprehensive Metabolic Panel (04/04/2019 5:25 PM CDT) Patholo gist Method Time Signature Potassium, S 3.5 (L) 3.6 - 5.2 04/04/2019 [facility] mmol/L 6:21 PM CDT LABORATORIES - [facility] Sodium, S 141 135 - 145 04/04/2019 [facility] mmol/L 6:21 PM CDT LABORATORIES - [facility] Chloride, S 105 98 - 107 04/04/2019 [facility] mmol/L 6:21 CDT LABORATORIES - [facility] Bicarbonate, S 23 22 - 29 04/04/2019 [facility] mmol/L 6:21 CDT LABORATORIES - [facility] Anion Gap 13 7 - 15 04/04/2019 [facility] 6:21 PM CDT LABORATORIES - [facility] BUN (Blood Urea 20 6 - 21 04/04/2019 [facility] Nitrogen), S mg/dL 6:21 CDT LABORATORIES - [facility] Creatinine 0.90 0.59 - 04/04/2019 [facility] 1.04 6:21 CDT LABORATORIES - mg/dL [facility] eGFR-Non 72 >=60 04/04/2019 [facility] Black/ mL/min/BS 6:21 CDT LABORATORIES - [place] [facility] Comment: ----ADDITIONAL INFORMATION---- Estimated GFR calculated using the 2009 CKD_EPI creatinine equation. eGFR-Black/ 83 >=60 mL/min/BSA 04/04/2019 6:21 [facility] [place] CDT LAB[facility]ATORIES [facility] Comment: ----ADDITIONAL INFORMATION---- Estimated GFR calculated using the 2009 CKD_EPI creatinine equation. Calcium, Total, S 8.6 8.6 - 10.0 04/04/2019 6:21 [facility] mg/dL CDT LAB[facility]ATORIES [facility] Glucose, S 96 70 - 140 04/04/2019 6:21 [facility] mg/dL CDT [facility]ATORIES [facility] Protein, Total, S 6.2 (L) 6.3 - 7.9 04/04/2019 6:21 [facility] g/dL CDT LABORATORIES [facility] Albumin, S 4.1 3.5 - 5.0 04/04/2019 6:21 [facility] g/dL CDT LAB[facility]ATORIES [facility] Aspartate 21 8 - 43 U/L 04/04/2019 6:21 [facility] Aminotransferase (AST), CDT LABORA TORIES - S [facility] Alkaline Phosphatase, S 73 35 - 104 U/L 04/04/2019 6: 21 [facility] PM CDT LAB[facility]ATORIES [facility] Alanine Aminotransferase 14 7 - 45 U/L 04/04/2019 6:2 1 [facility] (ALT), S PM CDT LABORATORIES - [facility] Bilirubin, Total, S 0.2 <=1.2 mg/dL 04/04/2019 6:21 [facility] PM CDT LABORATORIES [facility] Specimen Anatomical Collection Method Collection Time Receive d Time (Source) Location / / Volume Laterality Blood (Blood, 04/04/2019 5:25 PM 04/04/20 5:40 Venous) CDT PM CDT Clemente Aiken M.D. LAB BLOOD ADD-ON Performing Organization Address City/State/ZIP Code Phon e Number [facility]IES - [address] [place], [place] [address] [facility] documented in this encounter Visit Diagnoses Diagnosis Stroke (HCC) - Primary Stroke (HCC) Decline Functional Status Malaise documented in this [...] DISKUS) 933 (Given - Provid er: Tyler Naki R.N.) 1 puff, inhalation, Daily (RT), First [...] Kiara Curry R.N., CRN - Comment: LOT# [id number]) 1-200 mL, intravenous, Once in imaging, contrast, [...]
--- OUTSIDE RECORDS SUMMARY | 2022-09-14 12:10 | XMS_ITS | Encounter Summary ---
:1965 Author Organization [facility] Address [address] [place] [address] Care Team Providers Name Role Phone Unavailable Primary Care Provider Unavailable Reason for Visit Reason Onset Date Comments [facility] Med Request 03/30/2019 Encounter Details Date Type Department Care Team Description 03/30/2019 Clinical Communication Department of Tesfaye Ortega [facility] Med Request Nicotine Kenna Bose M.S., [place], C.T.T.S[facility] [place], [place] [address] [place] [address] Social History Tobacco Use Types Packs/Day Years [...] you attend alevism or Patient refused 2021 latter-day services? Do [...] CDT Please send the following to the [facility] 1) 14 mg patch 2) [...]
--- OUTSIDE RECORDS SUMMARY | 2022-09-14 12:10 | XMS_ITS | Encounter Summary ---
:1965 Author Organization [facility] Address [address] [place] [address] Care Team Providers Name Role Phone Unavailable [...] you attend confucianist or Patient refused 2021 confucianist services? Do [...]
--- OUTSIDE RECORDS SUMMARY | 2022-09-14 12:11 | XMS_ITS | Encounter Summary ---
:1965 Author Organization [facility] Address [address] [place] [address] Care Team Providers Name Role Phone Unavailable Primary Care Provider Unavailable Encounter Details Date Type Department Care Team Description 08/22/2007 - Hospital Encounter HX ADILIA NO MAPPING Provider, Jadyn hough 08/25/2007 Social [...] you attend latter-day or Patient refused 2021 rastafarian services? Do [...] encounter Results [place] Esophagram (08/24/2007 10:57 AM [facility]) Anatomical Region Laterality Modality Gastro Intestinal, Abdominal RST LOS N/A Rad iographic Imaging Specimen (Source) Anatomical Collection Method Collection Time Re ceived Time Location / / Volume Laterality 08/24/2007 10:57 AM MST Narrative 08/24/2007 11:41 AM [facility] Indications: [...]
--- OUTSIDE RECORDS SUMMARY | 2022-09-14 12:11 | XMS_ITS | Encounter Summary ---
:1965 Author Organization [facility] Address [address] [place] [address] Care Team Providers Name Role Phone Unavailable [...] you attend anabaptist or Patient refused 2021 oriental orthodox services? [...]
--- OUTSIDE RECORDS SUMMARY | 2022-09-14 12:11 | XMS_ITS | Encounter Summary ---
:1965 Author Organization [facility] Address [address] [place] [address] Care Team Providers Name Role Phone Unavailable [...] attend jehovah's witness or Patient refused 2021 methodist services? Do [...] 4:56 PM MST Narrative 07/06/2008 5:07 PM MST Indications: ?PNE PATHWAY CALL [phone] IF POS. ??TECHNOTE: NIPPLE PIERCINGS LUNG ARTIFACT. [...] from the original. Indications: PNE PATHWAY CALL [phone] IF P OS. TECHNOTE: NIPPLE PIERCINGS LUNG [...] by: Ashley Keen MD. 06-Jul-2008 17:07 Tamir Victoria M.D. IMGeronimo DIAGNOSTIC IMAGING PROCE DURSHAHZAD documented in this encounter Visit Diagnoses Not on filedocumented in this encounter
--- OUTSIDE RECORDS SUMMARY | 2022-09-14 12:11 | XMS_ITS | Encounter Summary ---
:1965 Author Organization [facility] Address [address] [place] [address] Care Team Providers Name Role Phone Unavailable [...] you attend evangelical or Patient refused 2021 yarsanism services? Do [...] 2:55 PM MST Indications: ?CP PATHWAY CALL [phone] IF POS ORIGINAL REPORT - 24-Jul-2009 14:55:00 [...] from the original. Indications: CP PATHWAY CALL [phone] IF PO S ORIGINAL REPORT - 24-Jul-2009 [...]
--- OUTSIDE RECORDS SUMMARY | 2022-09-14 12:11 | XMS_ITS | Encounter Summary ---
:1965 Author Organization [facility] Address [address] [place] [address] Care Team Providers Name Role Phone Unavailable [...] you attend muslim or Patient refused 2021 sabianist services? Do [...] Address City/State/ZIP Code Phon e Number HX [place] CONVERSION documented in this encounter Visit Diagnoses Not on filedocumented in this encounter
--- OUTSIDE RECORDS SUMMARY | 2022-09-14 12:11 | XMS_ITS | Encounter Summary ---
:1965 Author Organization [facility] Address [address] [place] [address] Care Team Providers Name Role Phone Unavailable Primary Care Provider Unavailable Reason for Visit Outpatient (Routine) - Closed Specialty Diagnoses / Procedures Referred By Contact Refer red To Contact Otorhinolaryngology Diagnoses Sinus Nose Disorder [facility] [address]ian [address] [place] [address] Referral ID Status Reason Start Date Expiration Date Visits Requ ested Visits Authorized [id number] Closed 01/10/2019 01/10/2020 1 1 Encounter Details Date Type Department Care Team Description 03/01/2019 Comprehensive Visit Department of Honorio, Sinusit is Chronic (Primary Dx); Otorhinolaryngology in [place] , [facility] N[facility] [address] [facility] [address] [place] [address] [place] [id number] Social History Tobacco Use Types Packs/Day Years [...] you attend moravian or Patient refused 2021 congregation services? Do [...] nasal surgery including sinus surgery X2 in [place] and X2 at [place] per patient; 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 Decongestion: no improvement with decongestion. Modified Castro: not performed. Rigid exam with a 30 [...] obtained. - Obtained outside operative reports from [place] - Discussed risks and benefits including but [...]
--- OUTSIDE RECORDS SUMMARY | 2022-09-14 12:11 | XMS_ITS | Encounter Summary ---
:1965 Author Organization [facility] Address [address] [place] [address] Care Team Providers Name Role Phone Unavailable Primary Care Provider Unavailable Encounter Details Date Type Department Care Team Description 01/15/2010 - Hospital Encounter HX ARZ NO MAPPING Leonides Du, 01/16/2010 [address]ian [address] [place] [address] Social History Tobacco Use Types [...] attend oriental orthodox or Patient refused 2021 baptist services? Do [...] encounter Results [place] Esophagram (01/15/2010 9:36 PM [facility]) Anatomical Region Laterality Modality Gastro Intestinal, Abdominal RST LOS N/A Rad iographic Imaging Specimen (Source) Anatomical Collection Method Collection Time Re ceived Time Location / / Volume Laterality 01/15/2010 9:36 PM MST Narrative 01/15/2010 9:43 PM [facility] Indications: ?STATUS POST GASTRIC BYPASS ORIGINAL [...]
--- OUTSIDE RECORDS SUMMARY | 2022-09-14 12:11 | XMS_ITS | Encounter Summary ---
:1965 Author Organization [facility] Address [address] [place] [address] Care Team Providers Name Role Phone Unavailable Primary Care Provider Unavailable Encounter Details Date Type Department Care Team Description 02/03/2009 - Hospital Encounter HX ADILIA NO MAPPING ProviderJadyn 02/04/2009 Social History Tobacco Use Types Packs/Day [...] you attend christian or Patient refused 2021 synagogue services? Do [...] 9:46 PM MST Indications: ?CP PATHWAY CALL [phone] IF POS ?? tech: pt. not and was shielded for exam. ORIGINAL REPORT - 03-Feb-2009 21:46:00 ED Chest PA & Lateral Comparison is made with 08/18/2008. Lung s are clear. Heart size and vascularity within normal limits. No pleural fluid. Spinal stimulator device is unchanged in position. ?? This report has been electronically sign ed by Kelly Dong MD on Jan?2008 ??9:45PM. Electronically signed by: ?? Jonny Reyes 03-Feb-2009 21:46 Procedure Note Kelly Dong M.D. - 07/25/2018Format ting of this note might be different from the original. Indications: CP PATHWAY CALL [phone] IF PO S tech: pt. not and [...] Lead with rhythm strip (02/03/2009 12:00 AM [facility]) Specimen (Source) Anatomical Location Collection Method / Collectio n Time Received Time / Laterality Volume 02/03/2009 Historical Provider ECG ORDERABLES Performing Organization Address City/State/ZIP Code Phon e Number HX [place] CONVERSION documented in this encounter Visit Diagnoses Not on filedocumented in this encounter
--- OUTSIDE RECORDS SUMMARY | 2022-09-14 12:11 | XMS_ITS | Encounter Summary ---
:1965 Author Organization [facility] Address [address] [place] [address] Care Team Providers Name Role Phone Unavailable Primary Care Provider Unavailable Encounter Details Date Type Department Care Team Description 09/01/2007 - Hospital Encounter HX ARShanna NO MAPPING Provider, Jadyn hough 09/02/2007 Social [...] you attend evangelical or Patient refused 2021 nondenominational services? Do [...] Pelvis with IV Contrast (09/02/2007 1:17 AM [facility]) Anatomical Region Laterality Modality Pelvis, Abdominal RST LOS N/A Computed Tomog chato Specimen (Source) Anatomical Collection Method Collection Time Re ceived Time Location / / Volume Laterality 09/02/2007 1:17 AM [facility] Addenda Addendum by Elmo Cabrera M.D. on 03/2007 11:40 PM [facility] APPENDED REPORT - 02-Sep-2007 01 :40:00 CT Abdomen w/ Contrast CT Pelvis W Contrast Appended to link all pertinent exams to report. ? Electronically signed by: ?? Mamta Cabrera M.D. 02-Sep-2007 01:40 Narrative 09/02/2007 1:40 AM [facility] Indications: ?R/O ABCESS, POSTOP ORIGINAL REPORT [...] Abdomen with IV Contrast (09/02/2007 1:17 AM [facility]) Anatomical Region Laterality Modality Abdomen, Abdominal RST LOS N/A Computed Tacos graphy Specimen (Source) Anatomical Collection Method Collection Time Re ceived Time Location / / Volume Laterality 09/02/2007 1:17 AM [facility] Addenda Addendum by Elmo Cabrera M.D. on 03/2007 11:40 PM [facility] APPENDED REPORT - 02-Sep-2007 01 :40:00 CT Abdomen w/ Contrast CT Pelvis W Contrast Appended to link all pertinent exams to report. ? Electronically signed by: ?? Mamta Cabrera M.D. 02-Sep-2007 01:40 Narrative 09/02/2007 1:40 AM [facility] Indications: ?R/O ABCESS, POSTOP ORIGINAL REPORT [...] Mamta Cabrera M.D. 02-Sep-2007 01:39 Procedure Note Emlo Cabrera M.D. - 07/28/2018Formatt ing of this [...]
--- OUTSIDE RECORDS SUMMARY | 2022-09-14 12:11 | XMS_ITS | Encounter Summary ---
:1965 Author Organization [facility] Address [address] [place] [address] Care Team Providers Name Role Phone Unavailable Primary Care Provider Unavailable Encounter Details Date Type Department Care Team Description 06/21/2017 Hospital Encounter HX [facility] PMTR Hernesto Watson M.D. 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 Romero. REFERRED FOR Ms. [...] WATSON MD On: 06/21/2017 03:10 PM Source: [facility] MHSDOLBEYNONRADSYS Document Id: [id number] documented in this encounter Miscellaneous Notes Miscellaneous - Sergio Watson M.D. - 06/21/2017 2:19 PM CDT Ambulatory Discharge Medication List [address] [id number] Visit Information Name: KAYLIN BENDER [facility] Number: [id number] Current Date: 06/21/2017 14:19:38 Attending [...] MD Signed On:21-JUN-2017 14:19:21 Additional Information: Source: [facility] POWERCHART Document Id: [id number] Miscellaneous - Sergio Watson M.D. - 06/21/2017 2:19 PM CDT Ambulatory Patient Summary [address] [id number] Visit Information Name: KAYLIN BENDER [facility] Number: [id number] Current Date: 06/21/2017 14:19:38 Physicians [...] if you dont have one. Go to [email or web address] and click on Create Your Account. Then, follow the directions to complete the online form. Youll be asked for your [facility] number which you can find at the top of this document. Your Goals/Additional instructions: Source: [facility] POWERCHART Document Id: [id number] Miscellaneous - Ayla Mcmanus, L.P.N. 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 Extinguisher Mechanic Intake/History Adult Fire Extinguisher Mechanic Intake/History Entered On: 06/21/2017 13:26 CDT Performed On: 06/21/2017 13:25 CDT by AYLA MCMANUS MIXER BLENDER Intake Systolic Blood Pressure : 124 mmHg Diastolic Blood Pressure : 62 mmHg NIBP Mean : 83 mmHg BP Location : Left upper extremity Blood Pressure Cuff Size : Regular Actual Weight : 70.55 kg(Converted to: 155 lb 9 oz) Dosing Weight Clinic : 70.55 kg AYLA MCMANUS LPN - 06/21/2017 13:25 CDT General Info Information Given By : Patient Languages : Lithuanian Is Patient Female and 13-50 no hysterectomy [...] MCMANUS LPN - 06/21/2017 13:25 CDT [facility] Document Id: [id number] CDT![id number] documented in this encounter Plan of Treatment Not on filedocumented as of this encounter Visit Diagnoses Not on filedocumented in this encounter
--- OUTSIDE RECORDS SUMMARY | 2022-09-14 12:11 | XMS_ITS | Encounter Summary ---
:1965 Author Organization [facility] Address [address] [place] [address] Care Team Providers Name Role Phone Elsewhere, Pcp Primary Care Provider Unavailable Reason for Referral Outpatient (Routine) - Closed Specialty Diagnoses / Procedures Referred By Contact Refer red To Contact Otorhinolaryngology Diagnoses Sinus Nose Disorder Sinusitis Chronic Chris Mckeon [place] [facility] M.D. [address] [place] [address] Referral ID Status Reason Start Date Expiration Date Visits Requ ested Visits Authorized [id number] Closed 01/10/2019 01/10/2020 1 1 ACE MINER Encounter Details Date Type Department Care Team Description 01/10/2019 [facility] Mike, Sinu s Nose Disorder (Primary Dx); AND CLINICS Chris Celaya M.D. Sinusitis Chronic [address] [facility] [address] [place] [address] [place], [place] [phone] [id number] Social History Tobacco Use Types Packs/Day Years [...] you attend presybeterian or Patient refused 2021 anglican services? Do [...] COVID19 Pending 01/31/2021 01/31/2021 01/31/2021 10:53 PM SURFACE MINER COVID19 Pending 02/10/2021 02/11/2021 02/11/2021 1:09 AM CDT COVID19 Pending 12/29/2021 12/29/2021 12/29/2021 4:20 PM SURFACE MINER COVID19 Pending 02/25/2022 02/25/2022 02/25/2022 3:59 PM CDT COVID19 Pending 05/17/2022 05/17/2022 05/17/2022 2:34 PM CDT COVID19 Pending 06/15/2022 06/15/2022 06/15/2022 8:24 PM CDT documented as of this encounter Care Teams Munitions Handler Supervisor Relationship Specialty Start Date End Date Elsewhere, Pcp PCP - General Family Medicine 1/28/22 documented as of this encounter
--- OUTSIDE RECORDS SUMMARY | 2022-09-14 12:11 | XMS_ITS | Encounter Summary ---
:1965 Author Organization [facility] Address [address] [place] [address] Care Team Providers Name Role Phone Unavailable [...] attend roman catholic or Patient refused 2021 faith services? Do [...]
--- OUTSIDE RECORDS SUMMARY | 2022-09-14 12:11 | XMS_ITS | Encounter Summary ---
:1965 Author Organization [facility] Address [address] [place] [address] Care Team Providers Name Role Phone Unavailable [...] you attend zoroastrian or Patient refused 2021 episcopalian services? Do [...]
--- OUTSIDE RECORDS SUMMARY | 2022-09-14 12:11 | XMS_ITS | Encounter Summary ---
:1965 Author Organization [facility] Address [address] [place] [address] Care Team Providers Name Role Phone Unavailable [...]
--- OUTSIDE RECORDS SUMMARY | 2022-09-14 12:11 | XMS_ITS | Encounter Summary ---
:1965 Author Organization [facility] Address [address] [place] [address] Care Team Providers Name Role Phone Unavailable [...] you attend buddhist or Patient refused 2021 islam services? Do [...] 2:53 PM MST Narrative 08/16/2008 3:27 PM [facility] Indications: ?CHEST PAIN tech: Pt stated nipple [...] Bundy M.D. 16-Aug-2008 15:27 Conchita Arias D.O. IMGeronimo DIAGNOSTIC IMAGING PROCE [facility] ECG 12 Lead with rhythm strip (08/16/2008 12:00 AM [facility]) Specimen (Source) Anatomical Location Collection Method / Collectio n Time Received Time / Laterality Volume 08/16/2008 Historical Provider ECG ORDERABLES Performing Organization Address City/State/ZIP Code Phon e Number HX [place] CONVERSION documented in this encounter Visit Diagnoses Not on filedocumented in this encounter
--- OUTSIDE RECORDS SUMMARY | 2022-09-14 12:11 | XMS_ITS | Encounter Summary ---
:[address] [facility] Address [address] [place] [address] Care Team Providers Name Role Phone Unavailable [...] you attend anabaptism or Patient refused 2021 jew services? Do [...]
--- OUTSIDE RECORDS SUMMARY | 2022-09-14 12:11 | XMS_ITS | Encounter Summary ---
:1965 Author Organization [facility] Address [address] [place] [address] Care Team Providers Name Role Phone Unavailable [...] you attend hinduism or Patient refused 2021 druze services? Do [...]
--- OUTSIDE RECORDS SUMMARY | 2022-09-14 12:11 | XMS_ITS | Encounter Summary ---
:1965 Author Organization [facility] Address [address] [place] [address] Care Team Providers Name Role Phone Unavailable Primary Care Provider Unavailable Encounter Details Date Type Department Care Team Description 09/25/2015 Hospital Encounter HX [facility] FBCV PMTR Hernesto Watson M.D. [address] [facility], [address] [place] [address] (Wo rk) Social History Tobacco [...] you attend anabaptist or Patient refused 2021 shinto services? Do [...] KUNZ LPN On: 09/25/2015 03:38 PM Source: [facility] POWERCHART Document Id: [id number] documented in this encounter Miscellaneous Notes Telephone Encounter - Conversion, Historical Provider Ser - 05/11/2017 11:32 AM CDT *Phone Message/Dr. Watson Document Contains Addenda Addendum by IVY BENITEZ on May 11, 2017 13:27:22 CDT From: IVY BENITEZ ( [employer] Mechanician) To: Physical Medicine and Rehabilitation Staff; Sent: 05/11/2017 13:27:22 CDT Subject: RE: *Phone Message/Dr. Watson Left message on patients phone regarding this appointment. Addendum by NIKKIE GANDHI LPN on May 11, 2017 12:57:21 CDT From: NIKKIE GANDHI LPN ( Physical Medicine and Rehabilitation Staff) To: [employer] Mechanician; Sent: 05/11/2017 12:57:21 CDT Subject: RE: *Phone Message/Dr. Watson 27 noon, please reschedule. From: IVY BENITEZ ( [employer] Mechanician) To: Physical Medicine and Rehabilitation Staff; Sent: [...] come today, she would like it rescheduled [facility] since Dr. Romero wanted her to have it done. Please call her back at [phone] to advise. Advice/Action: Source used: ( ) [...] back cell phone number ( ) [facility] Document Id: [id number] Miscellaneous - Nikkie Gandhi, L.PBrittonN. - 05/04/2017 4:19 PM CDT *General Message Document Contains Addenda Addendum by ISIDRO HI on May 04, 2017 16:42:57 CDT From: ISIDRO HI ( [employer] Mechanician) To: Physical Medicine and Rehabilitation Staff; Sent: 05/04/2017 16:42:57 CDT Subject: RE: *General Message Called patient and scheduled as requested. From: NIKKIE GANDHI LPN ( Physical Medicine and Rehabilitation Staff) To: [employer] Mechanician; Sent: 05/04/2017 16:19:56 CDT Subject: *General Message Please call patient to schedule for bilateral upper extremity EMG. 05/11/17 at 11:45 am. 1 hour Source: [employer] Document Id: [id number] documented in this encounter Plan of Treatment Not on filedocumented as of this encounter Visit Diagnoses Not on filedocumented in this encounter
--- OUTSIDE RECORDS SUMMARY | 2022-09-14 12:11 | XMS_ITS | Encounter Summary ---
:1965 Author Organization [facility] Address [address] [place] [address] Care Team Providers Name Role Phone Unavailable Primary Care Provider Unavailable Encounter Details Date Type Department Care Team Description 08/18/2008 - Hospital Encounter HX ARZ NO MAPPING ProviderJadyn 08/19/2008 Social History Tobacco Use Types Packs/Day [...] and Lateral 2 Views (08/18/2008 9:44 PM MST) Anatomical Region Laterality Modality Chest, Thoracic RST LOS N/A Radiographic Xi ging Specimen (Source) Anatomical Collection Method Collection Time Re ceived Time Location / / Volume Laterality 08/18/2008 9:44 PM MST Narrative 08/18/2008 9:57 PM [facility] Indications: ?PNE PATHWAY CALL [phone] IF POS - pt unable to remove [...] from the original. Indications: PNE PATHWAY CALL [phone] IF P OS - pt unable to [...] by: Rey Lopez MD 18-Aug-2008 21:57 Sirisha WEIG DIAGNOSTIC IMAGING PROCE DURES documented in this encounter Visit Diagnoses Not on filedocumented in this encounter
== END 2022-08-15 17:01 | disposition home or self-care (01) ==
LOC: AMB 09-14 11:44
PROVIDERS: PCP Family Medicine; Visit Provider Family Medicine
DX: G89.29 Other chronic pain (principal)
CPT/HCPCS: A0425; A0427

== ENCOUNTER 2022-09-09 07:04 | Emergency (ER) | payer MEDICARE, OTHER, SELFPAY ==
[2022-09-09 07:16] VITALS: BP 113/72; PULSE 97; RESP 18; TEMP 36.6; O2SAT 98; BMI 29.3
--- NOTE | 2022-09-09 07:34 | CRLHL7_ITS ---
For Patients: As a result of the Century Cures Act, medical imaging exams and procedure reports are released immediately into your electronic medical record. You may view this report before your referring provider. If you have questions, please contact your health care provider. Indication: Severe atraumatic pain Technique: A total of three views of the right wrist were acquired. Comparison: None Findings: Bones: No fracture, dislocation or destructive process. Joint spaces: Mild osteoarthritis primarily at the 1st carpometacarpal joint. Mild widening of the scapholunate interval probably due to scapholunate dissociation. This suggests an abnormal scapholunate ligament. Soft tissues: Unremarkable. Impression: 1. 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 2. No acute fracture, dislocation or destructive process. 3. Mild widening of the scapholunate interval probably related to scapholunate dissociation Dictated by Venu Carranza MD @ 09/09/2022 8:04:03 AM (Electronically Signed)
--- OUTSIDE RECORDS SUMMARY | 2022-09-09 07:48 | XMS_ITS | Encounter Summary ---
:1965 Author Organization [place] Address [address] [place] [address] Care Team Providers Name Role Phone [facility] Primary Care Provide r Mor [...] on filedocumented in this encounter Care Teams Grounds Worker Relationship Specialty Start Date End Date [facility] PCP - General 06/03/17 [facility] [address] [place] [address] Mor Bautista MD Assigned Infectious Disease 06/12/2106/25 Elisabeth Porter Provider [facility] [address] [place] [address] documented as of this encounter
--- OUTSIDE RECORDS SUMMARY | 2022-09-09 07:48 | XMS_ITS | Encounter Summary ---
:1965 Author Organization [place] Address [address] [place] [address] Care Team Providers Name Role Phone [facility], [facility] Primary Care Provide r Encounter Details [...] on filedocumented in this encounter Care Teams Activities Aide Relationship Specialty Start Date End Date [facility] PCP - General 06/03/171999 [place] [address] documented as of this encounter
--- OUTSIDE RECORDS SUMMARY | 2022-09-09 07:48 | XMS_ITS | Encounter Summary ---
:1965 Author Organization [place] Address [address] [place] [address] Care Team Providers Name Role Phone Clinic, [facility] Primary Care Provide r Mor Bautista MD Unavailable Reason for Visit Reason Onset Date Comments Appointment 05/12/2021 Encounter Details Date Type Department Care Team Description 05/12/2021 [facility] Infectious Disease None Appointment [place] [phone] Social History Tobacco Use Types Packs/Day Years Used Date Smoking Tobacco: Every Day Cigarettes 0.5 Smokeless Tobacco: Never Alcohol Use Standard Drinks/Week Comments No 0 (1 standard drink = 0.6 oz pure alcoho l) Sex Assigned at Date Recorded Not on file documented as of this encounter Miscellaneous Notes Telephone Encounter - Tiffanie Georges - 05/12/2021 12:17 PM CDT [facility] Phone Message May a detailed message be left on voicemail: yes Reason for Call: Other: Pt requesting call back, pt stated she is returning a call to the clinic. Security Operations Center Analyst did not see any notes in the pt's chart to refer to. Pt stated she is being referred from [facility] for a staph infection in her shoulder, pt stated she is needing to be seen this week. Pt stated she has trouble finding an antibiotics that works due to all the allergies she has Action Taken: Message routed to: [facility] ID documented in this encounter Plan of Treatment Not on filedocumented as of this encounter Visit Diagnoses Not on filedocumented in this encounter Care Teams Cleaning Staff Supervisor Relationship Specialty Start Date End Date Clinic, [facility] PCP - General 06/03/[address] [address] Mor Bautista MD Assigned Infectious Disease 06/12/2106/25 225 Mohan Porter Provider [address] [address] documented as of this encounter
--- OUTSIDE RECORDS SUMMARY | 2022-09-09 07:48 | XMS_ITS | Encounter Summary ---
:1965 Author Organization [place] Address [address] [place] [address] Care Team Providers Name Role Phone Clinic, [facility] Primary Care Provider [phone] Reason for Visit Reason Comments Fall Encounter Details Date Type Department Care Team Description 05/17/2017 [facility]; [facility] Emergency Dep t [facility] Shoulder strain, unspecified laterality, initial encounter [address] [place], [place] [address] [employer] [phone] [place] [address] [place], [place] 464135 (Wo rk) Social History Tobacco Use Types Packs/Day Years Used Date Smoking Tobacco: Every Day Cigarettes 0.5 Alcohol Use Standard Drinks/Week Comments No [...] contain Tylenol?? (acetaminophen), including Vicodin??, Tylenol #3??, Amistad??, Lortab??, and Percocet??. You should not take [...] contain Tylenol?? (acetaminophen), including Vicodin??, Tylenol #3??, Amistad??, Lortab??, and Percocet??. You should not take [...] neck fusion Reports taking tylenol 2 hrs INK MAKER Jose Guadalupe Betancourt MD - 05/17/2017 7:20 [...] Surgical History: Abdomen surgery Back surgery Cholecystectomy DIRECTOR REGULATORY COMPLIANCE surgery Orthopedic Surgery Family History: History reviewed. [...] I spoke with Dr. Davis of the [facility] regarding patient's presentation, findings, [...] and the provider's statements to me. 05/17/2017 [facility] EMERG[facility]Y [facility] Jose Guadalupe Betancourt MD [...] NAZANIN MCCORMACK MD Jose Guadalupe Betancourt MD IM CT ORDERABLES documented in this encounter Visit Diagnoses Diagnosis Acute neck pain Cervicalgia Shoulder strain, unspecified laterality, initial encounter documented in this encounter Administered Medications Inactive Administered Medications - up to 3 most recent administrations Medication Order MAR Action Action Date Dose Rate Site diazepam (VALIUM) tablet 5 mg Given 05/17/2017 8:26 PM CDT 5 mg 5 mg, Oral, ONCE, On Tue05/17/17 at 2006, For 1 dose oxyCODONE-acetaminophen (PERCOCET) [...] mg (COMPLETED) 2025 (Given - Provider: Susana Martinez RN) 5 mg, Oral, ONCE, Tue05/17/17 at 2006, For 1 dose oxyCODONE-acetaminophen (PERCOCET) 5-325 MG per tablet 1 tablet (COMPLETED) 2025 (Given - Provider: Susana Martinez RN) 1 tablet, Oral, ONCE, Tue05/17/17 at 200 6, For 1 dose, Maximum acetaminophen dose from all sources= 75 mg/kg/day not to exceed 4 grams documented in this encounter Care Teams Assistant Property Manager Relationship Specialty Start Date End Date [facility], [facility] PCP - General 05/17/17 06/02/[address] [place] [address] documented as of this encounter
--- OUTSIDE RECORDS SUMMARY | 2022-09-09 07:48 | XMS_ITS | Encounter Summary ---
:1965 Author Organization [place] Address [address] [place] [address] Care Team Providers Name Role Phone Clinic, [facility] Primary Care Provide r Encounter Details Date Type Department Care Team Description 03/20/2021 [facility] [address] [place] [id number] Social History Tobacco Use Types Packs/Day Years [...] Bacterial Culture Routine (03/20/2021 6:00 AM CDT) [facility] Method Time Signature Culture STAPHYLOCOCCUS 03/27/2021 [facility] EPIDERMIDIS (A) 8:01 AM CDT [facility] Comment: Staphylococcus epidermidis Isolated from broth only Gram Stain 4+ Polymorphonuclear 03/27/2021 8:01 AM HEALTH Result leukocytes [facility] Gram Stain No organisms seen 03/27/2021 8:01 AM HEALTH Result CDT [facility] Specimen Anatomical Collection Method [...] 1: Ortiz sceptible Comment: Z96.612 Clemente Blackwell [employer] [facility] ORDERABL ES Performing Organization Address City/[facility]/[place] [address] [address] [facility] Anaerobic Bacterial Culture Routine (03/20/2021 6:00 AM CDT) [facility] Method Time Signature Culture No anaerobic 03/23/2021 HEALTH organisms 7:18 AM CDT [facility] Specimen Anatomical Collection Method Collection Time Receive d Time (Source) Location / / Volume Laterality Body fluid Non-blood 03/20/2021 6:00 AM 1 specimen Collection / CDT 12:05 PM CDT (specimen) Unknown Clemente Blackwell LAB - MICRO GENERAL ORDERABL ES Performing Organization Address City/State/[place] [address] [address] [facility] (ABNORMAL) Cell count with differential fluid (03/20/2021 6:00 AM CDT) [facility] Method Time Signature Color Red 03/20/2021 HEALTH 2:04 PM CDT [facility] Clarity Turbid 03/20/2021 HEALTH 2:04 PM CDT [facility] Total Nucleated 42,864 (H) 0 - 99 03/20/2021 [facility] Cells /uL 2:04 PM CDT [facility] RBC, Fluid >50,000 <50,000 03/20/2021 HEALTH (A) /ul 2:04 PM CDT [facility] % Neutrophils 91 (H) <=25 % 03/20/2021 [facility] 2:04 PM CDT [facility] % Lymphocytes 8 <=78 % 03/20/2021 [facility] 2:04 PM CDT [facility] Monocyte % 1 <=71 % 03/20/2021 [facility] 2:04 PM CDT [facility] Macrophage % 03/20/2021 [facility] 2:04 PM CDT [facility] Mesothelials, 03/20/2021 [facility] Fluid 2:04 PM CDT [facility] % Eosinophils 03/20/2021 [facility] 2:04 PM CDT [facility] % Other Cells 03/20/2021 [facility] 2:04 PM CDT [facility] Specimen Anatomical Collection Method Collection Time Receive d Time (Source) Location / / Volume Laterality Body fluid BODY FLUID Non-blood 03/20/2021 6:00 AM specimen SPECIMEN / Unknown Collection / CDT 12:05 PM CDT (specimen) Unknown Narrative [facility] - 03/20/2021 2:04 PM CDT Large clot present; count may be inaccur ate. Clemente Blackwell LAB - BODY FLUIDS ORDERABLES Performing Organization Address City/State/ZIP Code [place] [address] [phone] [place] [address] [address] [place] [address] [facility] [place] [address], [facility] [phone] documented in this encounter Visit Diagnoses Not on filedocumented in this encounter Care Teams Account Services Representative Relationship Specialty Start Date End Date Clinic, [facility] PCP - General 06/03/17[address] [place] [address] documented as of this encounter
--- OUTSIDE RECORDS SUMMARY | 2022-09-09 07:48 | XMS_ITS | Encounter Summary ---
:1965 Author Organization [place] Address [address] [place] [address] Care Team Providers Name Role Phone [facility], [facility] Primary Care Provide r Encounter Details Date Type Department Care Team Description 05/14/2021 [facility] CONVERSION ProviderAlea Social History Tobacco Use [...] on filedocumented in this encounter Care Teams Channel Sales Director Relationship Specialty Start Date End Date [facility] PCP - General 06/03/171999 [place] [address] documented as of this encounter
--- OUTSIDE RECORDS SUMMARY | 2022-09-09 07:48 | XMS_ITS | Encounter Summary ---
:1965 Author Organization [place] Address [address] [place] [address] Care Team Providers Name Role Phone Clinic, [facility] Primary Care Provide r Reason for Visit Reason Comments Referral Other ID Encounter Details Date Type Department Care Team Description 05/11/2021 Communication - Health [place] Provider, Jameel howard; [facility] Specialties Patient Access [address] [place] [phone] Social History Tobacco Use Types Packs/Day Years Used Date Smoking Tobacco: Every Day Cigarettes 0.5 Smokeless Tobacco: Never Alcohol Use Standard Drinks/Week Comments No 0 (1 standard drink = 0.6 oz pure alcoho l) Sex Assigned at Date Recorded Not on file documented as of this encounter Miscellaneous Notes Telephone Encounter - Historical Provider - 05/13/2021 11:10 AM CDT Date: 05/14/2021 Status: [facility] Time: 3:20 PM Length: 40 Visit Type: CONSULT [[id number]] Copay: $0.00 Provider: Mor Bautista MD Telephone [...] ONLY received??? 05/11/2021 12:05pm inside ID consult [facility], , Referring: Dr David Cohn, DX: status post shoulder replacement, left Order comments: Asking for HALI, this week. documented in this encounter Plan of Treatment Not on filedocumented as of this encounter Visit Diagnoses Not on filedocumented in this encounter Care Teams Gear Inspector Relationship Specialty Start Date End Date Clinic, [facility] PCP - General 06/03/171999 [place] [address] documented as of this encounter
--- OUTSIDE RECORDS SUMMARY | 2022-09-09 07:48 | XMS_ITS | Encounter Summary ---
:1965 Author Organization [place] Address [address] [place] [address] Care Team Providers Name Role Phone [facility] Primary Care Provide r Encounter Details Date Type Department Care Team Description 04/01/2021 [facility] - [facility] CONVERSION ProviderAlea Social History Tobacco Use [...] on filedocumented in this encounter Care Teams Meal Miller Relationship Specialty Start Date End Date [facility] PCP - General 06/03/171999 [place] [address] documented as of this encounter
--- OUTSIDE RECORDS SUMMARY | 2022-09-09 07:48 | XMS_ITS | Encounter Summary ---
:1965 Author Organization [place] Address [address] [place] [address]. [place] [address] Care Team Providers Name Role Phone Clinic, [facility] Primary Care Provide r Reason for Visit Reason Comments Consult pt here with her neighbor Arin calderon, Encounter Details Date Type Department Care Team Description 05/14/2021 Office Visit - [facility] Mor Bautista Acute [facility] Sheldon Patel MD osteomyelitis of right [address] [place] [address] [address] [facility] [address] [address] [place], [place] [phone] [address] Social History Tobacco Use Types Packs/Day Years [...] 3:20 PM CDT Infectious Disease Consultation: Requesting MD:Lalit Reason for consult:MRSJoe shoulder infection HISTORY: Hospital [...] and has many allergies. The isolate is MRSJoe, S to doxy. She is not allergic to doxy. Dr. Cohn would like her to be on some version of an oral suppressive. Pertinent past history, past infectious disease history: Reviewed in the notes from [place] Medications: Reviewed prior to admission meds as applicable in chart review. Current meds are reviewed in the EMR listed MAR. ANTIBIOTICS: Current:none Prior: Allergy to: SH/FH and [...] ?? GRAM STAIN? Gram stain performed by [place], [place] ?? Specimen Collected on Tissue - [...] ?? IMPRESSION: ALE shoulder infection post revision wi need for oral suppression PLAN: Doxy 100mg daily I am not completely sure how long to suppress, Dr. Cohn could assist me with this duration if possible. My cell is [phone]. I wrote for 90 days and warned pt about sunburn risk. She has hx of skin cancer. 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
--- OUTSIDE RECORDS SUMMARY | 2022-09-09 07:48 | XMS_ITS | Encounter Summary ---
:1965 Author Organization [place] Address [address] [place] [address] Care Team Providers Name Role Phone [facility], [facility] Primary Care Provide r Encounter Details Date Type Department Care Team Description 05/20/2021 Records - [facility] Provider, [place] [facility] Information Management [address] [facility] [address] [place] [address] Social History Tobacco Use Types Packs/Day Years [...] athologist Signature Creatinine 0.60 0.50 - 1.50 [facility] mg/dL [facility] Specimen (Source) Anatomical Location Collection Method / Collectio n Time Received Time / Laterality Volume Blood specimen 04/20/2021 (specimen) Narrative 04/20/2021 [facility] EXTERNAL RESULT Historical Provider LAB - BLOOD ORDERABLES Performing Organization Address City/State/ZIP Code Phon e Number [facility] [address] [place] [address] documented in this encounter Visit Diagnoses Not on filedocumented in this encounter Care Teams Blueprint Blocker Relationship Specialty Start Date End Date Clinic, [facility] PCP - General 06/03/171999 [place] [address] documented as of this encounter
--- OUTSIDE RECORDS SUMMARY | 2022-09-09 07:48 | XMS_ITS | Encounter Summary ---
:1965 Author Organization [place] Address [address] [place] [address] Care Team Providers Name Role Phone [facility] Primary Care Provide r Encounter Details Date Type Department Care Team Description 04/20/2021 Records - [facility] HE CONVERSION ProviderAlea Social [...] on filedocumented in this encounter Care Teams Carroting Machine Operator Relationship Specialty Start Date End Date [facility] PCP - General 06/03/171999 [place] [address] documented as of this encounter
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
--- OUTSIDE RECORDS SUMMARY | 2022-09-09 07:48 | XMS_ITS | Clinical Summary ---
:1965 Author Organization [facility] Address [address] [place] [address] Care Team Providers Name Role Phone Clinic, [facility] Primary Care Provide r Allergies Active Allergy [...] breath / dyspnea or wheezing naloxone (NARCAN) [place] 4 mg into 0 Active nasal spray [...] (Takes 2 x 5000 unit tablet = 77507 unit dose) Esomeprazole Magnesium Take 40 mg [...] CDT Respiratory Rate 16 10/14/2017 4:28 PM AIR BRUSH DECORATOR Oxygen Saturation 98% 10/14/2017 4:28 PM AIR BRUSH DECORATOR Inhaled Oxygen Concentration - - Weight 74.8 kg (165 lb) 05/14/2021 3:31 PM CDT Height 152.4 cm (5') 05/14/2021 3:31 PM CDT Body Mass Index 32.22 05/14/2021 3:31 PM CDT Plan of Treatment Health Maintenance Due Date Last Done Comments ADVANCE CARE PLANNING 1965 ANNUAL REVIEW OF HM ORDERS [address] CT COLONOGRAPHY 1965 FIT-DNA (Cologuard) 1965 FIT 1965 FLEX SIG 1965 HEPATITIS B IMMUNIZATION (1 1965 of 3 - 3-dose series) MAMMO SCREENING 1965 COVID-19 Vaccine (#1) 1965 [...] 08/13/2024 08/13/2014 (2 - Td or Tdap) IPV IMMUNIZATION Aged Out No longer eligi ble based on patient 's age to complete this topic MENINGITIS IMMUNIZATION Aged Out No longe r eligible based on patient 's age to complete this topic Medical Devices Implanted Type Area Pie Filler Device Shelf Model / Identifier Expiration Serial / Date Lot Device Tvt Obturator Laser [id number] Other N/A: [employer] 04/27/2018 [id number] / Implanted: Qty: 1 on 10/14/2017 by Rain Herring MD at [facility]- / [id number] Procedures Procedure Name Priority Date/Time Associated Comments [...] IFA with Reflex (08/10/2022 11:10 AM CDT) [facility] Method Time Signature ERYN interpretation Negative [...] Code Phon e Number SPECIALTY CORE/PROT/ENDO [place]ty [place], [place] [address] Core/Prot/Endo [address] [facility] [address] [facility], Room 3-580 Lyme Disease Total Abs Bld [...] LAB - BLOOD ORDERABLES Performing Organization Address City/[facility]/ZIP Code Phon e Number SPECIALTY CORE/PROT/ENDO [place], [place] [address] Core/Prot/Endo [address] [facility] [address] [facility], Room 3-580 Uric acid (08/10/2022 11:10 AM CDT) athologist Signature Uric Acid 4.8 2.0 - 7.5 08/10/2022 [facility] mg/dL 11:36 AM CDT Specimen Anatomical Collection Method / Collection Time Recei jose Time (Source) Location / Volume Laterality Blood STRUCTURE OF RIGHT Venipuncture / 08/10/2022 11:10 HAND / Unknown Unknown AM CDT 11:10 AM CDT Clemente Katz PA-C LAB - BLOOD ORDERABLES Performing Organization Address City/State/ZIP Code Phon e Number [facility] [address] [facility] [address] TSH (08/10/2022 11:10 AM CDT) athologist Signature TSH 0.92 0.30 - 5.00 08/10/2022 [facility] uIU/mL 12:01 PM CDT Specimen Anatomical Collection Method / Collection Time Recei jose Time (Source) Location / Volume Laterality Blood STRUCTURE OF RIGHT Venipuncture / 08/10/2022 11:10 HAND / Unknown Unknown AM CDT 11:10 AM CDT Clemente Katz PA-C LAB - BLOOD ORDERABLES Performing Organization Address City/State/ZIP Code Phon e Number [facility] [place] [address] [facility] Thyroxine total (08/10/2022 11:10 AM CDT) [...] LAB - BLOOD ORDERABLES Performing Organization Address City/[facility]/ZIP Code Phon [place] [address] Lab [address] [facility], Room 3-580 T4 free (08/10/2022 11:10 AM CDT) athologist Signature Free T4 0.98 0.90 - [...] City/State/ZIP Code Ph[place] [address] Lab [address] [facility], Room [facility] T3 total (08/10/2022 11:10 AM CDT) athologist [...] City/State/ZIP Code Phon e Number [facility] [address] Lab [address] [facility], Room [facility] Rheumatoid factor (08/10/2022 11:10 AM CDT) athologist Signature Rheumatoid <6 <12 IU/mL 08/10/2022 [facility] SPECIALTY Factor 3:34 PM CDT CORE/PROT/ENDO Specimen Anatomical Collection Method / Collection Time Recei jose Time (Source) Location / Volume Laterality Blood STRUCTURE OF RIGHT Venipuncture / 08/10/2022 11:10 HAND / Unknown Unknown AM CDT 11:10 AM CDT Clemente Katz PA-C LAB - BLOOD ORDERABLES Performing Organization Address City/[facility]/ZIP Code Phon e Number [facility] SPECIALTY CORE/PROT/ENDO [facility] [place] [address] Core/Prot/Endo [address] [facility], Room [address] (ABNORMAL) D dimer quantitative (08/10/2022 11:10 AM CDT) [facility] gist Method Time Signature D-Dimer 1.69 (H) 0.00 - 08/10/2022 [facility] Quantitative 0.50 11:28 AM CDT ug/mL FEU Specimen Anatomical Collection Method / Collection Time Recei jose Time (Source) Location / Volume Laterality Blood STRUCTURE OF RIGHT Venipuncture / 08/10/2022 11:10 HAND / Unknown Unknown AM CDT 11:10 AM CDT Narrative [facility] - 08/10/2022 11:28 AM CDT This D-dimer assay is intended for use i n conjunction with a clinical pretest probability assessment model to exclude pulmonary embolism (PE) and deep venous thrombosis (DVT) in outpatients suspecte d of PE or DVT. The cut-off value is 0.50 ug/mL FEU. Clemente Katz PA-C LAB - BLOOD ORDERABLES Performing Organization Address City/[facility]/ZIP Code Phon e Number [facility] [address] CRP inflammation (08/10/2022 11:10 AM CDT) P athologist Signature CRP 0.2 0.0 - <0.8 08/10/2022 [facility] mg/dL 11:33 AM CDT Specimen Anatomical Collection Method / Collection Time Recei jose Time (Source) Location / Volume Laterality Blood STRUCTURE OF RIGHT Venipuncture / 08/10/2022 11:10 HAND / Unknown Unknown AM CDT 11:10 AM CDT Clemente Katz PA-C LAB - BLOOD ORDERABLES Performing Organization Address City/[facility] Code Phon e Number [facility] [address] WBC and Differential (08/10/2022 11:05 AM CDT) Analysis Performed At Patho logist Time Signature WBC Count 4.2 4.0 - 11.0 08/10/2022 [facility] 10e3/uL 11:16 AM CDT % Neutrophils 43 % 08/10/2022 [facility] 11:16 AM CDT % Lymphocytes 42 % 08/10/2022 [facility] 11:16 AM CDT % Monocytes 11 % 08/10/2022 [facility] 11:16 AM CDT % Eosinophils 3 % 08/10/2022 [facility] 11:16 AM CDT % Basophils 1 % 08/10/2022 [facility] 11:16 AM CDT % Immature 0 % 08/10/2022 [facility] Granulocytes 11:16 AM CDT NRBCs per 100 WBC 0 <1 /100 08/10/2022 [facility] 11:16 AM CDT Absolute 1.8 1.6 - 8.3 08/10/2022 [facility] Neutrophils 10e3/uL 11:16 AM CDT Absolute 1.8 0.8 - 5.3 08/10/2022 [facility] Lymphocytes 10e3/uL 11:16 AM CDT Absolute 0.5 0.0 - 1.3 08/10/2022 [facility] Monocytes 10e3/uL 11:16 AM CDT Absolute 0.1 0.0 - 0.7 08/10/2022 [facility] Eosinophils 10e3/uL 11:16 AM CDT Absolute 0.0 0.0 - 0.2 08/10/2022 [facility] Basophils 10e3/uL 11:16 AM CDT Absolute Immature 0.0 <=0.4 08/10/2022 [facility] Granulocytes 10e3/uL 11:16 AM CDT Absolute NRBCs 0.0 10e3/uL 08/10/2022 [facility] 11:16 AM CDT Specimen Anatomical Collection Method / Collection Time Recei jose Time (Source) Location / Volume Laterality Blood STRUCTURE OF RIGHT Venipuncture / 08/10/2022 11:05 HAND / Unknown Unknown AM CDT 11:05 AM CDT Clemente Katz PA-C LAB - BLOOD ORDERABLES Performing Organization Address City/[facility]/Z[place] [address] Erythrocyte sedimentation rate auto (08/10/2022 11:05 AM CDT) [facility] gist Method Time Signature Erythrocyte 13 0 - 20 08/10/2022 [facility] Sedimentation Rate mm/hr 11:45 AM CDT Specimen Anatomical Collection Method / Collection Time Recei jose Time (Source) Location / Volume Laterality Blood STRUCTURE OF RIGHT Venipuncture / 08/10/2022 11:05 HAND / Unknown Unknown AM CDT 11:05 AM CDT Clemente Katz PA-C LAB - BLOOD ORDERABLES Performing Organization Address City/[facility]/[place] [address] from Last 3 Months Insurance Payer Benefit Plan / Subscriber ID Effective Dates Phone Addre ss Type Group MEDICARE MEDICARE [id number] 2012-Ariana [phone] ATTN CL AIMS Medicare nt 0 [address] [place] [address] MEDICA MEDICA ACCESS [id number] 2016-Dirk [phone] [address] [address] HMO ABILITY ID t [address] [place] [address] Care Teams Media Production Support Manager Relationship Specialty Start Date End Date Clinic, [facility] PCP - General 06/03/171999 [place] [address]
--- OUTSIDE RECORDS SUMMARY | 2022-09-09 07:48 | XMS_ITS | Encounter Summary ---
:1965 Author Organization [place] Address [address] [place] [address] Care Team Providers Name Role Phone [facility] Primary Care Provide r Encounter Details Date Type Department Care Team Description [facility] ProviderAlea Social History [...] on filedocumented in this encounter Care Teams Wing Coverer Relationship Specialty Start Date End Date [facility] PCP - General 06/03/171999 [place] [address] documented as of this encounter
--- OUTSIDE RECORDS SUMMARY | 2022-09-09 07:48 | XMS_ITS | Encounter Summary ---
:1965 Author Organization [place] Address [address] [place] [address] Care Team Providers Name Role Phone [facility], [facility] Primary Care Provide r Encounter Details Date Type Department Care Team Description [facility] ProviderAlea Social History [...] on filedocumented in this encounter Care Teams Wet Machine Tender Relationship Specialty Start Date End Date [facility] PCP - General 06/03/171999 [place] [address] documented as of this encounter
--- OUTSIDE RECORDS SUMMARY | 2022-09-09 07:48 | XMS_ITS | Encounter Summary ---
:1965 Author Organization [place] Address [facility] [place] [address] Care Team Providers Name Role Phone Clinic, [facility] Primary Care Provide r Reason for Visit Auth/Cert Specialty Diagnoses / Procedures Referred By Contact Refer red To Contact Surgery Diagnoses URGE AND STRESS INCONTINENCE,FEMALE STRESS INCONTINENCE Sh Periop Services Procedures CYSTOSCOPY, SLING TRANSVAGINAL [address], [address] [place] [address] Phone: Referral ID Status Reason Start Date Expiration Date Visits Requ ested Visits Authorized [id number] 1 1 Encounter Details Date Type Department Care Team Description 10/14/2017 Hospital Encounter [facility] Tesfaye, Mary Ann ss incontinence Shayne Rodrigez MD (Primary Dx) PreOP/Phase II [place] [address], UROLOGY [address] [facility] [address] [place] [address] [phone] Social History Tobacco Use Types Packs/Day Years Used Date Smoking Tobacco: Every Day Cigarettes 0.5 Smokeless Tobacco: Never Alcohol Use Standard Drinks/Week Comments No 0 (1 standard drink = 0.6 oz pure alcoho l) Sex Assigned at Date Recorded Not on file documented as of this encounter Last Filed Vital Signs Vital Sign Reading Time Taken Comments Blood Pressure 121/86 10/14/2017 4:28 PM PROJECT DEVELOPER Pulse - - Temperature 36.6 ??C (97.8 ??F) 10/14/2017 3:00 PM PROJECT DEVELOPER Respiratory Rate 16 10/14/2017 4:28 PM PROJECT DEVELOPER Oxygen Saturation 98% 10/14/2017 4:28 PM PROJECT DEVELOPER Inhaled Oxygen Concentration - - Weight 73.9 kg (163 lb) 10/14/2017 12:15 PM PROJECT DEVELOPER Height 152.4 cm (5') 10/14/2017 12:15 PM PROJECT DEVELOPER Body Mass Index 31.83 10/14/2017 12:15 PM PROJECT DEVELOPER documented in this encounter Discharge Instructions Discharge InstructionsGi King RN - 10/14/2017 1:42 PM PROJECT DEVELOPER Post Bladder Sling Instructions Dr Stafford [phone] ?? For pain you may take a narcotic/acetaminophen combination prescription for pain relief. The mostcommon pain is in the upper thighs. This usually lasts 2-3 days. You may use cold packs to this areaas needed to reduce pain and bruising. Generally mbnw-fni-gcrgbes medicines such as ibuprofen, 3-4 tablets every [...] vaginal sutures. ?? Post op appointments: Call [phone] to schedule an appointment to see your [...] menstrual period call the office. Call Dr Sitnikova's office if you have: ?? A fever [...] know so they can address your concerns. ECT DEVELOPER documented in this encounter Medications at Time [...] needed for muscle spasms naloxone (NARCAN) nasal [place] 4 mg into one 0 spray nostril [...] (Takes 2 x 5000 unit tablet = 03788 unit dose) ZONISAMIDE PO Take 300 mg [...] and was given a new prescription for [place]. Prescription for Oxycodone shredded. Patient took hard copy of new [place] prescription with her.; ECT DEVELOPER Vicki Matthews RN - 10/14/2017 3:39 PM CST Patient voided, bladder scan 450cc, encouraged patient to void again. Pt voided. Bladder scan for 100-150cc. Patient comfortable and ready to go home. ECT DEVELOPER documented in this encounter Miscellaneous Notes Op [...] note, she also [facility] and on exam I was able to [...] and draped in the regular fashion. A 16-English Lagos catheter was placed. Periurethral space was [...] EM#[id number] Name: ANGIE MOSQUERA MRN: [id number] Account: [id number] : 1965 Procedure Date: 10/14/2017 Document: [id number] cc: Rain Stafford MD ECT DEVELOPER documented in this encounter Plan of Treatment Not on filedocumented as of this encounter Procedures Procedure Name Priority Date/Time Associated Diagnosis Comme nts CREATION, VAGINAL 10/14/2017 12:46 PM URGE AND STRESS SLING, WITH CYSTOSCOPY PROJECT DEVELOPER INCONTINENCE,FEMAL E STRESS INCONTINENCE LAB RESULT - HIM SCAN 10/11/2017 12:00 AM PROJECT DEVELOPER EKG CARDIAC - HIM SCAN 08/15/2017 12:00 AM CDT XRAY IMAGING - HIM 07/25/2017 12:00 AM SCAN CDT documented in this encounter Results LAB RESULT - HIM SCAN (10/11/2017 12:00 AM PROJECT DEVELOPER) Specimen (Source) Anatomical Location Collection Method [...] - HIM SCAN (07/25/2017 12:00 AM CDT) Anatomical Region Laterality Modality [...] ciprofloxacin (CIPRO) infusion Given 10/14/2017 12:59 PM PROJECT DEVELOPER 400 mg 400 mg Routine, 400 mg, Intravenous, PRE-OP/PRE-PROCEDURE, Starting on Tue10/14/17 at 1155, For 1 dose, Irritant., Indications: Perioperative Pharmacoprophylaxis, Pre-procedure New Bag 10/14/2017 12:26 PM PROJECT DEVELOPER 400 mg fentaNYL (PF) (SUBLIMAZE) injection 25-5 0 mcg Given 10/14/2017 2:01 PM PROJECT DEVELOPER 50 mcg 25-50 mcg, Intravenous, EVERY 2 [...] 100 mcg., PACU Given 10/14/2017 1:50 PM PROJECT DEVELOPER 50 mcg HYDROmorphone (PF) (DILAUDID) injection Given 10/14/2017 2:42 PM PROJECT DEVELOPER 0.5 mg 0.3-0.5 mg 0.3-0.5 mg, Intravenous, [...] minutes., PACU/Phase II Given 10/14/2017 2:18 PM PROJECT DEVELOPER 0.5 mg ondansetron (ZOFRAN) injection 4 mg Given 10/14/2017 2:18 PM PROJECT DEVELOPER 4 mg 4 mg, Intravenous, EVERY 30 [...] tablet 5 mg Given 10/14/2017 2:54 PM PROJECT DEVELOPER 5 mg 5 mg, Oral, ONCE, On Tue10/14/17 at 1500, For 1 dose, PACU scopolamine (TRANSDERM) 72 hr Given 10/14/2017 12:43 PM PROJECT DEVELOPER 1 pa tch Behind Left Ear patch 1 patch 1 patch, Transdermal, EVERY 72 HOURS, First dose on Tue10/14/17 at 1245, Apply patch to skin, behind ear. Remove every 72 hours. Each 1.5 mg patch delivers 1 mg of scopolamine., Pre-procedure documented in this encounter Active and Recently Administered Medications Times are shown in PROJECT DEVELOPER. Scheduled Medication Order 10/12/2017 10/13/2017 10/14/2017 ciprofloxacin (CIPRO) infusion 400 mg (COMPLETED) 1226 (New Bag - Provider: Rona Hanks RN)1259 (Given - Provider: Gayatri Combs APRN BELT WEAVER) Routine, 400 mg, Intravenous, PRE-OP/PRE -PROCEDURE, Starting Tue10/14/17 at 1155, For 1 dose, Irritant., Indications: Perioperative Pharmacoprophylaxis, Pre-procedure oxyCODONE IR (ROXICODONE) tablet 5 mg (COMPLETED) 1454 (Given - Provider: Gi King, RADHA) 5 mg, Oral, ONCE, Tue10/14/17 at 1500, [...] Gi King RN)1401 (Given - Provider: Gi King RN) 25-50 mcg, Intravenous, EVERY 2 MIN PRN, [...] Gi King RN)1442 (Given - Provider: Gi King RN) 0.3-0.5 mg, Intravenous, EVERY 10 MIN [place] [...] 1544 documented in this encounter Care Teams Automobile Rental Representative Relationship Specialty Start Date End Date [facility], [facility] PCP - General 06/03/171999 [place] [address] documented as of this encounter
--- OUTSIDE RECORDS SUMMARY | 2022-09-09 07:48 | XMS_ITS | Encounter Summary ---
:1965 Author Organization [place] Address [facility] [place] [address] Care Team Providers Name Role Phone Clinic, [facility] Primary Care Provide r Reason for Visit Auth/Cert Specialty Diagnoses / Procedures Referred By Contact Refer red To Contact Surgery Diagnoses URGE AND STRESS INCONTINENCE,FEMALE STRESS INCONTINENCE Sh Periop Services Procedures CYSTOSCOPY, SLING TRANSVAGINAL [address], [address] [place] [address] Phone: Referral ID Status Reason Start Date Expiration Date Visits Requ ested Visits Authorized [id number] 1 1 Encounter Details Date Type Department Care Team Description 10/14/2017 Surgery [facility] Tesfaye, CYSTOSCOPY ,TVT SLING [place] [facility] Ser ashwin Rodrigez MD [address] [facility] [address] UROLOGY [address] [place] [address] [facility] [phone] [place] [address] (Wo rk) Surgery Details Date/Time Status Location OR Service Patient Case Class Case Tr auma Class Type Case? 10/14/17 1:[address] [facility] Urology Same Day PM Surgery Panel [...] Comments Blood Pressure 93/59 10/14/2017 2:15 PM LINTER TENDER Pulse - - Temperature 35.7 ??C (96.3 ??F) 10/14/2017 1:31 PM LINTER TENDER Respiratory Rate 14 10/14/2017 2:15 PM LINTER TENDER Oxygen Saturation 93% 10/14/2017 2:15 PM LINTER TENDER Inhaled Oxygen Concentration - - Weight 73.9 kg (163 lb) 10/14/2017 12:15 PM LINTER TENDER Height 152.4 cm (5') 10/14/2017 12:15 PM LINTER TENDER Body Mass Index 31.83 10/14/2017 12:15 PM LINTER TENDER documented in this encounter Discharge Instructions Discharge InstructionsGi King RN - 10/14/2017 1:42 PM LINTER TENDER Post Bladder Sling Instructions Dr Stafford [phone] ?? For pain you may take a narcotic/acetaminophen combination prescription for pain relief. The mostcommon pain is in the upper thighs. This usually lasts 2-3 days. You may use cold packs to this areaas needed to reduce pain and bruising. Generally sflb-bqg-mpyqlmo medicines such as ibuprofen, 3-4 tablets every [...] vaginal sutures. ?? Post op appointments: Call [phone] to schedule an appointment to see your [...] know so they can address your concerns. ER TENDER documented in this encounter Medications at Time [...] needed for muscle spasms naloxone (NARCAN) nasal [place] 4 mg into one 0 spray nostril [...] (Takes 2 x 5000 unit tablet = 01610 unit dose) ZONISAMIDE PO Take 300 mg [...] and was given a new prescription for [place]. Prescription for Oxycodone shredded. Patient took hard copy of new [place] prescription with her.; ER TENDER Vicki Matthews RN - 10/14/2017 3:39 PM CST Patient voided, bladder scan 450cc, encouraged patient to void again. Pt voided. Bladder scan for 100-150cc. Patient comfortable and ready to go home. ER TENDER documented in this encounter Miscellaneous Notes Op [...] note, she also underwent sling [facility] in [facility] and on exam I was able [...] and draped in the regular fashion. A 16-[place] Lagos catheter was placed. Periurethral space was [...] her old graft. RAIN STAFFORD MD MT: #[id number] Name: ANGIE MOSQUERA Account: [id number] : 1965 Procedure Date: 10/14/2017 Document: [id number] cc: Rain Stafford MD ER TENDER documented in this encounter Plan of Treatment Not on filedocumented as of this encounter Procedures Procedure Name Priority Date/Time Associated Diagnosis Comme nts CREATION, VAGINAL 10/14/2017 12:46 PM URGE AND STRESS SLING, WITH CYSTOSCOPY LINTER TENDER INCONTINENCE,FEMAL E STRESS INCONTINENCE LAB RESULT - HIM SCAN 10/11/2017 12:00 AM LINTER TENDER EKG CARDIAC - HIM SCAN 08/15/2017 12:00 AM CDT XRAY IMAGING - HIM 07/25/2017 12:00 AM SCAN CDT documented in this encounter Results LAB RESULT - HIM SCAN (10/11/2017 12:00 AM LINTER TENDER) Specimen (Source) Anatomical Location Collection Method [...] 1:21 PM 30 mLs Operative EPINEPHrine 1:200,000 LINTER TENDER Sit e/Surgical Site injection PRN, Starting on Tue10/14/17 at 1321, Intra-procedure ciprofloxacin (CIPRO) infusion 400 mg Given 10/14/2017 12:59 PM LINTER TENDER 400 mg Routine, 400 mg, Intravenous, PRE-OP/PRE-PROCEDURE, Starting on Tue10/14/17 at 1155, For 1 dose, Irritant., Indications: Perioperative Pharmacoprophylaxis, Pre-procedure New Bag 10/14/2017 12:26 PM LINTER TENDER 400 mg fentaNYL (PF) (SUBLIMAZE) injection 25-5 0 mcg Given 10/14/2017 2:01 PM LINTER TENDER 50 mcg 25-50 mcg, Intravenous, EVERY 2 [...] 100 mcg., PACU Given 10/14/2017 1:50 PM LINTER TENDER 50 mcg HYDROmorphone (PF) (DILAUDID) injection Given 10/14/2017 2:42 PM LINTER TENDER 0.5 mg 0.3-0.5 mg 0.3-0.5 mg, Intravenous, [...] minutes., PACU/Phase II Given 10/14/2017 2:18 PM LINTER TENDER 0.5 mg ondansetron (ZOFRAN) injection 4 mg Given 10/14/2017 2:18 PM LINTER TENDER 4 mg 4 mg, Intravenous, EVERY 30 [...] tablet 5 mg Given 10/14/2017 2:54 PM LINTER TENDER 5 mg 5 mg, Oral, ONCE, On Tue10/14/17 at 1500, For 1 dose, PACU scopolamine (TRANSDERM) 72 hr Given 10/14/2017 12:43 PM LINTER TENDER 1 pa tch Behind Left Ear patch 1 patch 1 patch, Transdermal, EVERY 72 HOURS, First dose on Tue10/14/17 at 1245, Apply patch to skin, behind ear. Remove every 72 hours. Each 1.5 mg patch delivers 1 mg of scopolamine., Pre-procedure skin closure adhesive Given 10/14/2017 1:19 PM 1 applicator Operative (DERMABOND) vial LINTER TENDER Site/Surgical S ite PRN, Starting on Tue10/14/17 at 1319, Intra-procedure sodium chloride 0.9% Given 10/14/2017 1:09 PM 1,000 mLs Operative (bottle) irrigation LINTER TENDER Site/Surgical S ite PRN, Starting on Tue10/14/17 at 1309, Intra-procedure sterile water irrigation Given 10/14/2017 1:08 PM 3,000 mLs Operative (bag) LINTER TENDER Site/Surgical S ite PRN, Intra-procedure, Starting on Tue10/14/17 at 1308, Until Tue10/14/17 at 1544 documented in this encounter Active and Recently Administered Medications Times are shown in LINTER TENDER. Scheduled Medication Order 10/12/2017 10/13/2017 10/14/2017 ciprofloxacin (CIPRO) infusion 400 mg (COMPLETED) 1226 (New Bag - Provider: Rona Hanks RN)1259 (Given - Provider: Gayatri Combs APRN PEN RIDER) Routine, 400 mg, Intravenous, PRE-OP/PRE -PROCEDURE, Starting [...] RN) 0.3-0.5 mg, Intravenous, EVERY 10 MIN ID N, other, acute pain.?May administer if Respiratory [...] (CANCELED) 1418 (Given - Provider: Gi King RN) 4 mg, Intravenous, EVERY 30 MIN [...] 1544 documented in this encounter Care Teams Dust Collector Attendant Relationship Specialty Start Date End Date Clinic, [facility] PCP - General 06/03/171999 [place] [id number] documented as of this encounter
--- OUTSIDE RECORDS SUMMARY | 2022-09-09 07:48 | XMS_ITS | Encounter Summary ---
:1965 Author Organization [place] Address [address] [place] [address] Care Team Providers Name Role Phone [facility], [facility] Primary Care Provide r Mor Bautista MD [...] on filedocumented in this encounter Care Teams Data Warehouse Architect Relationship Specialty Start Date End Date [facility] PCP - General 06/03/17 [facility] [address] [place] [address] Mor Bautista MD Assigned Infectious Disease 06/12/2106/25 225 Mohan Porter Provider [facility] [address] [place] [address] documented as of this encounter
--- OUTSIDE RECORDS SUMMARY | 2022-09-09 07:48 | XMS_ITS | Encounter Summary ---
:1965 Author Organization [place] Address [address] [place] [address] Care Team Providers Name Role Phone [facility], [facility] Primary Care Provide r Encounter Details Date Type Department Care Team Description 04/10/2021 [facility] HE CONVERSION ProviderAlea Social History [...] on filedocumented in this encounter Care Teams Caustic Purification Operator Relationship Specialty Start Date End Date [facility] PCP - General 06/03/171999 [place] [address] documented as of this encounter
--- OUTSIDE RECORDS SUMMARY | 2022-09-09 07:48 | XMS_ITS | Encounter Summary ---
:1965 Author Organization [place] Address [address] [place] [address] Care Team Providers Name Role Phone Clinic, [facility] Primary Care Provide r Reason for Visit Reason Comments Back Pain Neck Pain Encounter Details Date Type Department Care Team Description 06/03/2017 Emergency [facility] Heggestad, Zoey Acute mi dline low back pain, with sciatica presence unspecified; [facility] Emergency Dep phuong Flowers PA-C Chronic neck pain [address] [facility]YS[facility] [place], [place] [address] [address] [facility] [phone] [place] [phone] (Wo rk) Social History Tobacco Use [...] that she received adequate care at the [facility] that she has been too. Pt reports that she left [facility] yesterday after they did not address her issues. Pt states that she would like something to take her painaway and upset that has not been receiving adequate pain control. SW explained that this pattern chart writer could not provide pt with pain [...] pain in her sternum.She was seen at [facility] and evaluated for neck pain but left before the full exam was completed as she feels she was not being treated fully. She states he has a history of multiple neck surgeries. ABCs intact. Patient is alert and oriented x3. Zoey Lpóez PA-C - 06/03/2017 1:01 PM CDT History [...] and that she is seeing doctors at [facility] for evaluation. She reports that most of [...] 6 months ago when she ran into [employer]. She states that she called her pain management center, [facility], and that they referred [...] a history of chronic pain who sees [facility] for her prescription for [...] son tells me that they went to [facility] emergency room and they told the nurse that they went to [facility] emergency room as well in the past few days but nobody did anything or me. Here, the patient notes that hardware in her C-spine has loosened and she is scheduled to see [facility] physician to possibly look [...] patient and her son that per our [facility] pain policy she could have a dose of pain medication here orally but we were not doing IM or IV and she would not get a prescription to go home with. During the work-up, I was unaware that the patient requested to see social work and social work came down to see them and came to talk to me. The social services states that the patient wanted [...] I did also speak to a P.A. party demonstrator for [facility], Grye Samayoa, who agreed with the plan with [...] observations and the provider's statements to me. [facility] Zoey López PA-C 06/03/17 1738 [...] dose documented in this encounter Care Teams Wire Weaver Helper Relationship Specialty Start Date End Date Clinic, [facility] PCP - General 06/03/171999 [place] [address] documented as of this encounter
--- OUTSIDE RECORDS SUMMARY | 2022-09-09 07:48 | XMS_ITS | Encounter Summary ---
:1965 Author Organization [place] Address [facility] [place] [address] Care Team Providers Name Role Phone Clinic, [facility] Primary Care Provide r Reason for Visit Auth/Cert Specialty Diagnoses / Procedures Referred By Contact Refer red To Contact Surgery Diagnoses URGE AND STRESS INCONTINENCE,FEMALE STRESS INCONTINENCE Sh Periop Services Procedures CYSTOSCOPY, SLING TRANSVAGINAL [address] [place] [address] Phone: Referral ID Status Reason Start Date Expiration Date Visits Requ ested Visits Authorized [id number] 1 1 Encounter Details Date Type Department Care Team Description 10/14/2017 Anesthesia Event [facility] SruthiEri rosa MD [facility] ANESTHESIA [address] [address] [facility] PeriOP Gayatri Combs, CRIME LABORATORY ANALYST CARDIAC EXERCISE SPECIALIST [address] [address] Services [address] [place] [address] Anesthesia Record Procedure Summary Procedure Name Responsible Anesthesia Start Anesthesia Stop Time Anesthesiologist Time CYSTOSCOPY,TVT Mini Negro MD 10/14/17 1246 7 1334 SLING (Vagina) Events Date Time Event Comment 10/14/2017 1222 [...] Packing 10/14/17; 1320; 10/14/17 1320 by Vagina; Gauze Usha Bar, RADHA radiopaque vaginal packing (soaked with saline and lube); 1 Peripheral IV 10/14/17; 1251; 20 G; 10/14/17 1251 by 10/14/17 1544 by Left; Hand; Alcohol; Gayatri Combs, Vicki Collins D, Injectable; Tolerated CARDIAC EXERCISE SPECIALIST RN well Retired Non-Surgical 10/14/17; 1254; Easy; 10/14/17 1254 by 09/28 06/13 1328 by Airway Intravenous; 4; mm; Gayatri Combs, Gayatri Poe, laryngeal mask airway; CARDIAC EXERCISE SPECIALIST CRIME LABORATORY ANALYST CARDIAC EXERCISE SPECIALIST midline; Equal, clear and bilateral; CARDIAC EXERCISE SPECIALIST; hh Urethral Catheter 10/14/17; 1314; No; 10/14/17 1314 by 10/14/17 1316 by /GI/CASEWORKER INTAKE Pelvic Usha Bar, Carole Duff, Procedure; 16 [...] MD, MD October 14, 2017 1:50 PM ER COVERING MACHINE OPERATOR Anesthesia Preprocedure Evaluation - Mini Negro MD [...] ??? Acyclovir Rash ??? Cephalosporins Rash ??? [place] Rash Past Medical History: Diagnosis Date ??? Fibromyalgia, primary ??? Migraine ??? Osteoporosis ??? Restless leg ??? Stress incontinence ??? Uncomplicated asthma Past Surgical History: Procedure Laterality Date ??? ABDOMEN SURGERY ??? BACK SURGERY ??? CHOLECYSTECTOMY ??? CASEWORKER INTAKE SURGERY ??? ORTHOPEDIC SURGERY Social History Substance [...] (Takes 2 x 5000 unit tablet = 20168 unit dose) Yes Reported, Patient Esomeprazole Magnesium [...] Yes Reported, Patient naloxone (NARCAN) nasal spray Reva 4 mg into one nostril alternating nostrils [...] Reported, Patient Current Facility-Administered Medications Ordered in [facility] Medication Dose Route Frequency Last Rate Last Dose ??? Provider ordered ALTERNATE pre op antibiotic. 1 each As instructed Continuous ??? ciprofloxacin (CIPRO) infusion 400 mg 400 mg Intravenous Pre-Op/Pre-procedure x 1 dose No current [facility]-ordered outpatient prescriptions on file. ??? Another [...] GLC, BUN, CR, ROGER in the last 24564haztr. No results for input(s): AST, ALT, ALKPHOS, BILITOTAL, LIPASE in the last 67601 hours. No results for input(s): WBC, HGB, PLT in the last 09338 hours. No results for input(s): ABO, RH in the last 43159 hours. No results for input(s): INR, PTT in the last 17556 hours. No results for input(s): TROPI in the last 57363 hours. No results for input(s): PH, PCO2, PO2, HCO3 in the last 62273 hours. No results for input(s): HCG in the last 12111 hours. No results found for this or any previous visit (from the past 744 hour(s)). RECENT LABS: ECG: ECHO: ER COVERING MACHINE OPERATOR documented in this encounter Miscellaneous Notes Anesthesia [...] (Last set prior to Anesthesia Care Transfer) CARDIAC EXERCISE SPECIALIST VITALS 10/14/2017 1258 - 10/14/2017 1334 10/14/2017 Pulse: 85 SpO2: 99 % Resp Rate (observed): 8 Resp Rate (set): 10 Electronically Signed By: Gayatri Combs APRN CARDIAC EXERCISE SPECIALIST October 14, 2017 1:34 PM ER COVERING MACHINE OPERATOR documented in this encounter Plan of Treatment Not on filedocumented as of this encounter Visit Diagnoses Not on filedocumented in this encounter Administered Medications Inactive Administered Medications - up to 3 most recent administrations Medication Order MAR Action Action Date Dose Rate Site ciprofloxacin (CIPRO) infusion Given 10/14/2017 12:59 PM RUBBER COVERING MACHINE OPERATOR 400 mg 400 mg Routine, 400 mg, Intravenous, PRE-OP/PRE-PROCEDURE, Starting on Tue10/14/17 at 1155, For 1 dose, Irritant., Indications: Perioperative Pharmacoprophylaxis, Pre-procedure New Bag 10/14/2017 12:26 PM RUBBER COVERING MACHINE OPERATOR 400 mg dexamethasone (DECADRON) injection Given 10/14/2017 1:03 PM RUBBER COVERING MACHINE OPERATOR 4 mg PRN, Administer over 1 Minutes, Starting on Tue10/14/17 at 1303, Anesthesia Intra-op dexmedetomidine (PRECEDEX) 4 mcg/mL bolu s Bolus 10/14/2017 1:08 PM RUBBER COVERING MACHINE OPERATOR 8 mcg 200 mcg, CONTINUOUS PRN, Starting on Tue10/14/17 at 1305, Anesthesia Intra-op New Bag 10/14/2017 1:05 PM RUBBER COVERING MACHINE OPERATOR 12 mcg fentaNYL (PF) (SUBLIMAZE) injection Given 10/14/2017 12:52 PM RUBBER COVERING MACHINE OPERATOR 100 mcg PRN, moderate to severe pain, Administer over 3-5 Minutes, Starting on Tue10/14/17 at 1252, Anesthesia Intra-op lactated ringers infusion New Bag 10/14/2017 12:51 PM RUBBER COVERING MACHINE OPERATOR Intravenous, CONTINUOUS PRN, Anesthesia Intra-op, Starting on Tue10/14/17 at 1251, Until Tue10/14/17 at 1334 lidocaine injection 2% (MDV) Given 10/14/2017 12:52 PM RUBBER COVERING MACHINE OPERATOR 80 mg PRN, Starting on Tue10/14/17 at 1252, Anesthesia Intra-op midazolam (VERSED) injection Given 10/14/2017 12:51 PM RUBBER COVERING MACHINE OPERATOR 2 mg Administer over 2 Minutes, PRN, anxiety, Starting on Tue10/14/17 at 1251, Anesthesia Intra-op ondansetron (ZOFRAN) injection Given 10/14/2017 1:03 PM RUBBER COVERING MACHINE OPERATOR 4 mg PRN, nausea, vomiting, Administer over 2-5 Minutes, Starting on Tue10/14/17 at 1303, Anesthesia Intra-op propofol (DIPRIVAN) infusion Rate/Dose 10/14/2017 1:14 150 mcg/kg/min 66.5 mL/hr Intravenous, CONTINUOUS PRN, Change PM RUBBER COVERING MACHINE OPERATOR Starting on Tue10/14/17 at 1252, Anesthesia Intra-op New Bag 10/14/2017 12:52 PM RUBBER COVERING MACHINE OPERATOR 200 mcg/kg/min 88.7 mL/hr propofol (DIPRIVAN) injection 10 mg/mL v ial Given 10/14/2017 1:06 PM RUBBER COVERING MACHINE OPERATOR 50 mg PRN, Starting on Tue10/14/17 at 1252, Anesthesia Intra-op Given 10/14/2017 12:52 PM RUBBER COVERING MACHINE OPERATOR 150 mg documented in this encounter Care Teams Brand Development Manager Relationship Specialty Start Date End Date Clinic, [facility] PCP - General 06/03/171999 [place] [address] documented as of this encounter
--- OUTSIDE RECORDS SUMMARY | 2022-09-09 07:49 | XMS_ITS | Encounter Summary ---
:1965 Author Organization [place] Address Pending sale to [facility] [place] [address] Care Team Providers Name Role Phone Unavailable Primary Care Provider Unavailable Encounter Details Date Type Department Care Team Description 04/15/2009 Results Only [facility] Evelio Munoz MD Hospital Results [address] [place] [address] (Wo rk) Social History Tobacco [...] SCAN DORSAL SPINE (04/15/2009 4:58 PM CDT) Anatomical Region Laterality Modality Other Specimen (Source) Anatomical Collection Method Collection Time Re ceived Time Location / / Volume Laterality 04/15/2009 4:58 PM CDT Impressions 04/15/2009 6:[address] THORACIC SPINE WITHOUT CONTRAST ??April 15, [...] fracture. Evelio Munoz MD SPECIAL IMAGING STUDIES CT SCAN LUMBAR SPINE (04/15/2009 4:55 PM CDT) Anatomical Region Laterality Modality Other Specimen (Source) Anatomical Collection Method Collection Time Re ceived Time Location / / Volume Laterality 04/15/2009 4:55 PM CDT Impressions 04/15/2009 5:[address] LUMBAR SPINE WITHOUT CONTRAST ??March 282008 [...] bilaterally. Evelio Munoz MD SPECIAL IMAGING STUDIES documented in this encounter Visit Diagnoses Not on filedocumented in this encounter
--- OUTSIDE RECORDS SUMMARY | 2022-09-09 07:49 | XMS_ITS | Encounter Summary ---
:1965 Author Organization [place] Address [address] [place] [address] Care Team Providers Name Role Phone Amna Fletcher Primary Care Provider Reason for Visit Reason Comments Chest Wall Pain Encounter Details Date Type Department Care Team Description 07/18/2016 Emergency [facility] Radha Espana Sternal contusion, initial encounter; [facility] Emergency Dep phuong Ross MD Closed fracture of rib of right side, in itial encounter [address] [facility] [place] [address] [address] [place] [address] (Wo rk) Social History Tobacco Use Types [...] your healthcare provider ?? Congested cough ?? [id number] [employer] [address] [place] [address], [place] [address]. All rights reserved. This information is not intended as a substitute for professional medical care. Always follow your healthcare professional's instructions. AttachmentsThe following attachments cannot be sent through Care Everywhere.BONE BRUISE (BONE CONTUSION), UNDERSTANDING (TAJIK)documented in this encounter Medications at Time of [...] not for pain; states she wants MD; MD updated. Myesha Lewis RN - 07/18/2016 3:15 [...] surgery Bilateral knee arthroplasty Gastric bypass Cholecystectomy Plant Care Worker surgery Family History: History reviewed. No pertinent [...] Department Course ECG (01:17:19): Rate 69 bpm. MD interval 176. QRS duration 94. QT/QTc 408/437. [...] hours for 10 days Adrian Vera 07/18/2016 [facility] EMERGENCY DEPARTMENT IAdrian am serving as a scribe at 1:03 AM on 07/18/2016 to document services personally performed by Radha Espana MD based on my observations and the provider's statements to me. Radha Espana MD 07/18/16 6881 Renea Conn RN - 07/18/2016 12:48 AM CDT Pt fell [...] EKG 12 lead (07/18/2016 1:17 AM CDT) [facility] gist Method Time Signature Interpretation ECG [...] 07/18/2016 diazepam (VALIUM) tablet 5 mg (COMPLETED) 0116 (Given - Provider: Adelita Wise RN) 5 mg, Oral, ONCE, 07/18/16 at 0113, For 1 dose HYDROmorphone (DILAUDID) injection 1 mg (COMPLETED) 0210 (Given - Provider: Myesha Lewis, RADHA) 1 [...] immediate release tablet 10 mg (COMPLETED ) 011 (Given - Provider: Adelita Wise RN) 10 mg, Oral, ONCE, 07/18/16 at 0113, For 1 dose documented in this encounter Care Teams Gas Line Repairer Relationship Specialty Start Date End Date Amna Fletcher PCP - General 07/18/16 05/16/17 [place] [address] documented as of this encounter
--- OUTSIDE RECORDS SUMMARY | 2022-09-09 07:49 | XMS_ITS | Encounter Summary ---
:1965 Author Organization [facility] Address [address] [place] [address] Care Team Providers Name Role Phone Jose Holden MD Primary Care Provider [phone] Reason for Visit Reason Comments Medication Request Encounter Details Date Type Department Care Team Description 12/08/2019 Telephone Careline Unknown, Physician Medication Request [address] [place], [place] [address] [place], [place] [phone] (Wo rk) Social History Tobacco Use Types [...] pain medication. Pt advised to surgeon at [place]. ER ENGINEER HELPER documented in this encounter Plan of Treatment Not on filedocumented as of this encounter Visit Diagnoses Not on filedocumented in this encounter Care Teams Sales Representative Sales Manager Relationship Specialty Start Date End Date Jose Holden MD PCP - General Otolaryngology 12/14/17 [address] [place] [address] documented as of this encounter
--- OUTSIDE RECORDS SUMMARY | 2022-09-09 07:49 | XMS_ITS | Encounter Summary ---
:1965 Author Organization [place] Address [address] [place] [address] Care Team Providers Name Role Phone Unavailable Primary Care Provider Unavailable Reason for Visit Reason Onset Date Comments Previsit 12/11/2014 12/19/[address] Juice mackenzie Encounter Details Date Type Department Care Team Description 12/11/2014 PRE VISIT Yasmin, Previsit ( OV [facility] Shauna Alejo MD with Dr Humphrey) [place] [address] [place], [place] [phone] [address] (Wo rk) Social History Tobacco Use Types Packs/Day Years Used Date Smoking Tobacco: Never Assessed Sex Assigned at Date Recorded Not on file documented as of this encounter Plan of Treatment Not on filedocumented as of this encounter Visit Diagnoses Not on filedocumented in this encounter
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
--- OUTSIDE RECORDS SUMMARY | 2022-09-09 07:49 | XMS_ITS | Encounter Summary ---
:1965 Author Organization [facility] Address [address] [place] [address] Care Team Providers Name Role Phone Jose Holden MD Primary Care Provider [phone] Encounter Details Date Type Department Care Team Description 03/06/2019 [facility]ent for [facility] Procedure/Treat [facility] Tony Alvarado MD [facility] [address] TREATMENT [address] [place] [address] [phone] Social History Tobacco Use Types Packs/Day Years [...] on filedocumented in this encounter Care Teams Recovery Analyst Relationship Specialty Start Date End Date Jose Holden MD PCP - General Otolaryngology 12/14/[address] [place] [address] documented as of this encounter
--- OUTSIDE RECORDS SUMMARY | 2022-09-09 07:49 | XMS_ITS | Encounter Summary ---
:1965 [facility] Address [address] [place] [address] Care Team Providers Name Role Phone Jose Holden MD Primary Care Provider [phone] Reason for Referral Procedure/Equipment (Routine) - Closed Specialty Diagnoses / Procedures Referred By Contact Refer red To Contact Diagnoses Dizziness Concussion with loss of consciousness of 30 minutes or less, subsequent encounter Alyse Carias, PT [address] [place] [address] Referral ID Status Reason Start Date Expiration Date Visits Requ ested Visits Authorized [id number] Closed 03/06/2019 06/04/2020 20 20 Scheduling Instructions . Reason for Visit Reason Comments Concussion Therapies (Routine) - Closed Specialty Diagnoses / Procedures Referred By Contact Refer red To Contact Diagnoses Impairment of balance Dizziness Blanka Mead, CRUISE AGENT, CN P [address] [place] [address] Referral ID Status Reason Start Date Expiration Date Visits Requ ested Visits Authorized [id number] Closed 02/16/2019 04/17/2019 1 1 Encounter Details Date Type Department Care Team Description 03/06/2019 Office Visit Alyse Bee Dizziness (Primary Dx); [facility] A, PT Concussion with loss of consciousness of 30 minutes or less, subsequent encounter Physical Therapy [address] [place] [phone] Social History Tobacco Use Types Packs/Day Years [...] impacting her status (scheduled for surgery at [facility] on 02/28/19). Tinnitus- scheduled for hearing assessment [...] ER right away. She was seen at [facility]. ?? She has a past medical [...] limited function due to PMH Lives in [place]. Independent with ADLs, driving. Current Level of Function: Currently not-employed. Lives alone in apartment. Difficulty bending down She does endorse LOS in home setting. Previous Therapy for This Condition: PT for neck (01/23/19- refaxed orders) Patient Goals: Return to previous level of function and Increased function OBJECTIVE Posture/Observations: alert, oriented, cooperative. forward head posturing. Carrying multiple bags and able to fruit picker machine operator from floor to chair without LOS. Functional [...] within her allowable cervical ROM). Access Code: [email or web address] URL: [email or web address] Date: 03/06/2019 Prepared by: Alyse Carias Exercises Standing Gaze Stabilization with Head Rotation - 1-3 reps - 30-40 seconds - 3x daily - 7x weekly Education regarding Rule of 2 -Discussed option of closer location to her home yet noted she would be able to attend at [facility] Patient's Response to Therapy: Good Home Program [...] encounter documented in this encounter Care Teams Collator Relationship Specialty Start Date End Date Jose Holden MD PCP - General Otolaryngology 12/14/17 [facility] [place] [address] documented as of this encounter
--- OUTSIDE RECORDS SUMMARY | 2022-09-09 07:49 | XMS_ITS | Encounter Summary ---
:1965 Author Organization [place] Address [address] [place] [address] Care Team Providers Name Role Phone Unavailable Primary Care Provider Unavailable Encounter Details Date Type Department Care Team Description 07/29/2011 Historic Notes INTERFACED REPORT Interface, Transcript onMD Social History Tobacco Use Types Packs/Day Years Used Date Smoking Tobacco: Never Assessed Sex Assigned at Date Recorded Not on file documented as of this encounter Progress Notes Interface, Case Finisher - 08/30/2011 5:48 PM CDT Allergies ?? Ceclor;Unknown f0?? acyclovir;Unknown f0?? PCN;Unknown pard par Basic Medication Information - History taken from:: Patient Medications (#1-10) - Medication: lyrica - Medication: prozac - Medication: lamictal - Medication: percocet - Medication: arthritis medications CRISTELA Rowell)[Signed 13:43] Authored: Allergies, Basic Medication Information, Medications (#1-10) documented in this encounter Plan of Treatment Not on filedocumented as of this encounter Visit Diagnoses Not on filedocumented in this encounter
--- OUTSIDE RECORDS SUMMARY | 2022-09-09 07:49 | XMS_ITS | Encounter Summary ---
:1965 Author Organization [place] Address [address] [place] [address] Care Team Providers Name Role Phone Unavailable Primary Care Provider Unavailable Encounter Details Date Type Department Care Team Description 04/15/2009 Historic Results INTERFACED REPORT Kai Munoz MD [address] [facility] [address] [place] [address] (Wo rk) Social History Tobacco [...]
--- OUTSIDE RECORDS SUMMARY | 2022-09-09 07:49 | XMS_ITS | Encounter Summary ---
:1965 Author Organization [facility] Address [address] [place] [address] Care Team Providers Name Role Phone Jose Holden MD Primary Care Provider [phone] Encounter Details Date Type Department Care Team Description 04/09/2019 Notes/Orders [facility] Neuroscience Jose Carias, Center Attendant [facility] ap[facility] PT [address] [place] [address] [place] [address] [phone] (Wo rk) Social History Tobacco Use Types [...] CDT PHYSICAL THERAPY DISCHARGE NOTE Angie Mosquera [phone] Payor: MEDICARE / Plan: MEDICARE / Product [...] on filedocumented in this encounter Care Teams Skidder Operator Relationship Specialty Start Date End Date Jose Holden MD PCP - General Otolaryngology 12/14/17 [place] [address] documented as of this encounter
--- OUTSIDE RECORDS SUMMARY | 2022-09-09 07:49 | XMS_ITS | Encounter Summary ---
:1965 Author Organization [facility] Address [address], [place] [address] Care Team Providers Name Role Phone Jose Holden MD Primary Care Provider [phone] Reason for Referral Procedure/Equipment (Routine) - Closed Specialty Diagnoses / Procedures Referred By Contact Refer red To Contact Diagnoses Intractable acute post-traumatic headache Blanka Mead APRN, CN P [address] [place] [address] Referral ID Status Reason Start Date Expiration Date Visits Requ ested Visits Authorized [id number] Closed 02/16/2019 05/17/2020 1 1 Scheduling Instructions . herapies (Routine) - Closed Specialty Diagnoses / Procedures Referred By Contact Refer red To Contact Diagnoses Impairment of balance Dizziness Blanka Mead APRN, CN P [address] [place] [address] Referral ID Status Reason Start Date Expiration Date Visits Requ ested Visits Authorized [id number] Closed 02/16/2019 04/17/2019 1 1 Scheduling Instructions Your provider has recommended an appoint ment with a [facility] Physical Therapist. Please stop at the clinic check out desk for assistance with scheduling or if you prefer to call for your appointment you may call [facility] Outpatient Rehabilitation at [phone]. We suggest you call your [facility] insurance company about your coverage and benefits for this appointment. Reason for Visit Reason Comments Consult, New Patient Consult/Transfer Care (Routine) - Closed Specialty Diagnoses / Procedures Referred By Contact Refer red To Contact Diagnoses Traumatic brain injury, without loss of consciousness, initial encounter (HRC) Tony Pittman MD [address] [place] [address] Referral ID Status Reason Start Date Expiration Date Visits Requ ested Visits Authorized [id number] Closed 12/26/2018 03/26/2020 1 1 Encounter Details Date Type Department Care Team Description 02/16/2019 Office Visit [facility] Mead, Impairment of balance (Primary Dx); [facility] Blanka Coulter s; Physical Medicine NIKKY Chavez, Intractable acute post-traum atic headache [address] [facility] [place] [address] [address] [facility] [phone] [place] [address] Social History Tobacco Use Types [...] Body Mass Index 33.01 12/26/2018 1:48 PM ATHLETIC FIELD CUSTODIAN documented in this encounter Patient Instructions Patient [...] If you need to reschedule, please call [phone] as soon as you know you will not be able to make the appointment. If you have any questions or concerns, please call the clinic at [phone]. ?? If tests are needed, you will [...] treatment plan is please contact us at [phone] or send us a secure message via LOVEThESIGN. If you need follow-up in the future, please call [phone] for an appointment. If you cannot get a time that satisfies you, please let us know what times work for you and we will do our best to accommodate you. Thank you for choosing Blanka Mead APRN, CNP and [facility] Physical Medicine and Rehabilitation. documented in this [...] ER right away. She was seen at [facility]. According to the note from [facility]: the patient fell approximately 20 hours before being seenon 11/10/2018 with a presentation of headache neck pain left shoulder pain left knee pain left hip pain out of proportion to the mechanism of injury. The patient's a 53-year-old female well-known to [facility] with multiple comorbid medical and psychosocial [...] She sees Dr. Bullard with neurosurgery at [facility]. She has a past medical history [...] Dr. Ihsan Brooke, [facility] Family History: Family History Problem Relation Age [...] ??? medical cannabis patient certified Take 1 [place] by mouth . ??? naloxone (NARCAN) 4 [...] EXAM: XR CERVICAL SPINE AP/LAT UPRIGHT LOCATION: [facility] DATE/TIME: 12/26/2018 1:44 PM ?? INDICATION: [...] able to review her head CT from [facility] as well as her cervical spine CT. Findings obtained by Clarence on 11/10/2018 showed CSF spaces within normal [...] headache documented in this encounter Care Teams Brim Stiffener Relationship Specialty Start Date End Date Jose Holden MD PCP - General Otolaryngology 12/14/17 [facility] [place] [address] documented as of this encounter
--- OUTSIDE RECORDS SUMMARY | 2022-09-09 07:49 | XMS_ITS | Encounter Summary ---
:1965 Author Organization [place] Address [facility] [place] [address] Care Team Providers Name Role Phone Unavailable Primary Care Provider Unavailable Encounter Details Date Type Department Care Team Description 04/15/[address] [facility] Evelio Lamar MD Hospital Results [address] [place] [address] (Wo rk) Social History Tobacco [...] She states that her pain clinic in [place] gave her new prescriptions to be filled [...] pain. SOCIAL HISTORY: The patient lives in [place]. Her primary care physician is Dr. Holley De La Rosa in [place], [place]. Her chronic pain doctor is Dr. Garcia at [facility] in [place]. Thepatient has had previous cervical and lumbar [...] I did speak with Dr. Torres the [facility] who review her records with [...] Compazine. I gave her referral information for [facility] if she has further problems while she was in [place]. She plans to be here another 1-2 weeks. DISCHARGE DIAGNOSES: 1. Acute exacerbation of chronic back pains. 2. Nausea. Electronically signed on 05/01/2009 06:49 by EVELIO LAMAR MD MT: [id number] Name: KAYLIN MOSQUERA MRN: [id number] Account: [id number] : 1965 Visit Date: 04/15/2009 Document: [id number] cc: Oc De La Rosa MD documented in this encounter Plan of Treatment Not on filedocumented as of this encounter Visit Diagnoses Not on filedocumented in this encounter
--- OUTSIDE RECORDS SUMMARY | 2022-09-09 07:49 | XMS_ITS | Encounter Summary ---
:1965 Author Organization [facility] Address [address], [place] [address] Care Team Providers Name Role Phone Jose Holden MD Primary Care Provider [phone] Reason for Visit Reason Comments Revisit trigger point injections/occ ipital nerve blocks Encounter Details Date Type Department Care Team Description 03/06/2019 Office Visit [facility] Pittman, Bilateral occ ipital neuralgia (Primary Dx); [facility] Carole Bowden Myalgia; Pain Management [address] Cervical vertebral fusion; [address] [place], [place] Spondylosis of cervical princess [place] [phone] Social History Tobacco Use Types Packs/Day Years [...] treatment plan is, please contact me via Wowsai online messaging or call the office at and ask to speak to a nurse. Tony Pittman MD Pain Medicine documented in this encounter Progress Notes Tony Pittman MD - 03/06/2019 2:45 PM CDT [facility] Follow-up Visit 03/06/2019 Interim history: [...] 5 mg Q6H - Prescribes by [facility], has been taking [...] a pain clinic in the past. [facility] physical therapy: Past [...] anterior cervical fusion 2016 Dr. Ihsan Brooke, [facility] past surgical [...] ??? medical cannabis patient certified Take 1 [place] by mouth . ??? naloxone (NARCAN) 4 [...] facility-administered medications prior to visit. PA and CT Prescription Monitoring Program reviewed Allergies: [...] in her mother. Social history:she lives in [place], [place].she is not currently working. Smokin/2 ppd. [...] limited. Significant posterior surgical deformity of neck. Human Services Case Manager to palpation bilateral levator scapulae, splenius, trapezius [...] These are unchanged from previous. Barriers: 1. alf opioid use Plan: 1. Patient education: I [...] Medicine Physical Medicine and Rehabilitation [facility] This note created using speech-recognition [...] myelopathy documented in this encounter Care Teams Train Caller Relationship Specialty Start Date End Date Jose Holden MD PCP - General Otolaryngology 12/14/[address] [place] [address] documented as of this encounter
--- OUTSIDE RECORDS SUMMARY | 2022-09-09 07:49 | XMS_ITS | Encounter Summary ---
:1965 Author Organization [facility] Address [facility] [place] [address] Care Team Providers Name Role Phone Unavailable Primary Care Provider Unavailable Encounter Details Date Type Department Care Team Description 07/29/2011 Emergency room [facility] EMERGENCY NURY CISNEROS Results [address] [place], [place] [address] Social History Tobacco Use Types Packs/Day Years Used Date Smoking Tobacco: Never Assessed Sex Assigned at Date Recorded Not on file documented as of this encounter Progress Notes Interface, Wheat Cleaner - 07/31/2011 10:23 AM CDT FINAL Chief [...] recently came to the area from [place] to visit her father (approximately two weeks [...] a friend. The patient resides in [place], and is here in the [facility] area visiting her father. The patient states that she has been smoking one pack of cigarettes per day since 1973. Her primary care physician is Dr. Holley De La Rosa in [place], [place]. \n Her chronic pain doctor is Dr. Garcia at [facility] in [place]. - Is negative for Illicit drug use, [...] MT: JOSÉ MIGUEL Name: KAYLIN MOSQUERA Account: [id number] : 1965 Visit Date: 07/29/2011 Document: [id number] documented in this encounter Plan of Treatment Not on filedocumented as of this encounter Visit Diagnoses Not on filedocumented in this encounter
--- OUTSIDE RECORDS SUMMARY | 2022-09-09 07:50 | XMS_ITS | Encounter Summary ---
:1965 [facility] Address [address] [place] [address] Care Team Providers Name Role Phone Jose Holden MD Primary Care Provider [phone] Encounter Details Date Type Department Care Team [...] on filedocumented in this encounter Care Teams Adobe Layer Relationship Specialty Start Date End Date Jose Holden MD PCP - General Otolaryngology 12/14/17 [address] [place] [address] documented as of this encounter
--- OUTSIDE RECORDS SUMMARY | 2022-09-09 07:50 | XMS_ITS | Encounter Summary ---
:1965 Author Organization [facility] Address [address] [place] [address] Care Team Providers Name Role Phone Jose Holden MD Primary Care Provider [phone] Encounter Details Date Type Department Care Team Description 06/29/2018 Consent for [facility] ENT Procedure/Treat [facility] Tony Alvarado MD FOR TX/PROCEDURE ent Pain Management [address] [place] [phone] Social History Tobacco Use Types Packs/Day Years [...] on filedocumented in this encounter Care Teams Cigar Machine Feeder Relationship Specialty Start Date End Date Jose Holden MD PCP - General Otolaryngology 12/14/[address] [place], [place] [id number] documented as of this encounter
--- OUTSIDE RECORDS SUMMARY | 2022-09-09 07:50 | XMS_ITS | Encounter Summary ---
:1965 Author Organization [facility] Address [address], [place] [address] Care Team Providers Name Role Phone Jose Holden MD Primary Care Provider [phone] Reason for Visit Reason Comments Medication Check In Encounter Details Date Type Department Care Team Description 03/07/2018 Telephone [facility] Pete Gonzalez MD Medication Check In [facility] [address] [facility]Ortho [place], [place] [address] [address] [place] [address] [phone] Social History Tobacco Use Types Packs/Day Years [...] 12:25 PM CDT Pharmacist Mandy calling from [employer]. She would like to inform provider [...] on filedocumented in this encounter Care Teams Hebrew Teacher Relationship Specialty Start Date End Date Jose Holden MD PCP - General Otolaryngology 12/14/17 [place] [address] documented as of this encounter
--- OUTSIDE RECORDS SUMMARY | 2022-09-09 07:50 | XMS_ITS | Encounter Summary ---
:1965 Author Organization [facility] Address [address] [address] Care Team Providers Name Role Phone Jose Holden MD Primary Care Provider [phone] Reason for Visit Reason Comments Revisit occipital nerve block Encounter Details Date Type Department Care Team Description 07/10/2018 Office Visit [facility] Frank occipital neuralgia (Primary Dx); [facility] Pain RMD Myalgia; Management [address] H/O cervical spinal arthrodesis [address] [place] [address] [phone] Social History Tobacco Use Types Packs/Day Years [...] treatment plan is, please contact me via Intrinsic-ID online messaging or call the office at and ask to speak to a nurse. Tony Pittman MD Pain Medicine documented in this encounter Progress Notes Tony Pittman MD - 07/10/2018 3:45 PM CDT [facility] Follow-up Visit 07/10/2018 Interim history: [...] Oxycodone 5 mg Q6H - Prescribes by [facility], has been taking for [...] at a pain clinic in the past. [facility] physical therapy: Past Acupuncture: [...] anterior cervical fusion 2017 Dr. Ihsan Brooke, [facility] past surgical history reviewed with [...] ??? medical cannabis patient certified Take 1 [employer] by mouth . ??? naloxone (NARCAN) 4 [...] 0 No facility-administered medications prior to visit. [place] and [place] Prescription Monitoring Program reviewed Allergies: [...] in her mother. Social history:she lives in [place], [place].she is not currently working. Smokin/2 ppd. 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 Patient education: I [...] Medicine and Rehabilitation [facility] Pain Management This document serves as a record of services personally performed by Tony Pittman MD. It was created on his behalf by Gillian Harding, a trained electromedical equipment technician. The creation of this record is [...] status documented in this encounter Care Teams Medical Director Relationship Specialty Start Date End Date Jose Holden MD PCP - General Otolaryngology 12/14/[address] [place], [place] [address] [address] documented as of this encounter
--- OUTSIDE RECORDS SUMMARY | 2022-09-09 07:50 | XMS_ITS | Encounter Summary ---
:1965 [facility] Address [address] [place] [address] Care Team Providers Name Role Phone Jose Holden MD Primary Care Provider [phone] Reason for Visit Reason Comments UPDATE Pain Encounter Details Date Type Department Care Team Description 06/22/2018 [facility] Gume Pittman R, UPDATE; [facility] [address] [place] [address] [place] [address] [phone] (Wo rk) Social History Tobacco Use Types [...] Arenas RN - 06/26/2018 10:02 AM CDT Geometry Tutor called patient, notified info below. Geometry Tutor offered patient appt today however she cannot [...] returned post TPI's from 3 days ago. 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 Patient education: I went over the above diagnoses and treatment plan with her and answered all of her questions. 2. Imaging review: None 3. Exercise program: Regular exercise and activity 4. Medications: No changes. Do not recommend halfway opioid use, continue to decrease use until [...] Medicine Physical Medicine and Rehabilitation [facility]. Obi Echeverria - 06/22/2018 4:29 [...] on filedocumented in this encounter Care Teams Loom Control Chain Builder Relationship Specialty Start Date End Date Jose Holden MD PCP - General Otolaryngology 12/14/17 [place] [address] documented as of this encounter
--- OUTSIDE RECORDS SUMMARY | 2022-09-09 07:50 | XMS_ITS | Encounter Summary ---
:1965 Author Organization [facility] Address [address], [place] [address] Care Team Providers Name Role Phone Jose Holden MD Primary Care Provider [phone] Reason for Visit Procedure/Equipment (Routine) - Incomplete Specialty Diagnoses / Procedures Referred By Contact Refer red To Contact Diagnoses Cervical spondylosis with radiculopathy (HRC) Sneha Maher, Sirisha Celaya, Procedures XR Cervical Spine AP/Lat Upright SUPERVISOR MOLD SHOP, BUILDING ASSOCIATE [address] [place] [address] Referral ID Status Reason Start Date Expiration Date Visits V isits Requested Authorized [id number] Incomplete 02/21/2018 05/23/2019 1 1 Encounter Details Date Type Department Care Team Description 04/05/2018 Imaging [facility] Sneha Maher, Cervical spondylosis [facility] Sirisha Celaya, APR N, BUILDING ASSOCIATE with radiculopathy Radiology [address] [place] [address] [phone] (Wo rk) Social History Tobacco Use Types [...] or failure. Anatomic alignment. Shoulder prosthesis. Sirisha Ymoi Maher SUPERVISOR MOLD SHOP, BUILDING ASSOCIATE RAD GD documented in this encounter Visit Diagnoses Diagnosis Cervical spondylosis with radiculopathy (HRC) Cervical spondylosis with myelopathy documented in this encounter Care Teams Content Administrator Relationship Specialty Start Date End Date Jose Holden MD PCP - General Otolaryngology 12/14/[address] [place], [place] [address] [address] documented as of this encounter
--- OUTSIDE RECORDS SUMMARY | 2022-09-09 07:50 | XMS_ITS | Encounter Summary ---
:1965 Author [facility] Address [address] [place] [address] Care Team Providers Name Role Phone Jose Holden MD Primary Care Provider [phone] Encounter Details Date Type Department Care Team [...] 11/10/2018 12:00 AM R esults for this EXCHANGE ENGINEER procedure are i n the results section. documented in this encounter Results CT SCAN SPINE--SCAN (11/10/2018 12:00 AM EXCHANGE ENGINEER) Anatomical Region Laterality Modality Other Specimen (Source) Anatomical Location Collection Method / Collectio n Time Received Time / Laterality Volume 11/10/2018 Narrative This result has an attachment that is no t available. Phy No Primary/Referring DUMMY/OTHER/AR documented in this encounter Visit Diagnoses Not on filedocumented in this encounter Care Teams Health Plan Advisor Relationship Specialty Start Date End Date Jose Holden MD PCP - General Otolaryngology 12/14/[address] [place] [address] documented as of this encounter
--- OUTSIDE RECORDS SUMMARY | 2022-09-09 07:50 | XMS_ITS | Encounter Summary ---
:1965 Author Organization [facility] Address [address] [place] [address] Care Team Providers Name Role Phone Jose Holden MD Primary Care Provider [phone] Encounter Details Date Type Department Care Team Description 02/06/2019 Consent for [facility] E[facility] Procedure/Treatm [facility] Tony Alvarado MD FOR TX/PROCEDURE ent Pain Management [address] [place] [phone] Social History Tobacco Use Types Packs/Day Years [...] on filedocumented in this encounter Care Teams Economics Faculty Member Relationship Specialty Start Date End Date Jose Holden MD PCP - General Otolaryngology 12/14/[address] [place], [place] [phone] documented as of this encounter
--- OUTSIDE RECORDS SUMMARY | 2022-09-09 07:50 | XMS_ITS | Encounter Summary ---
:1965 Author Organization [facility] Address [address] [place] [address] Care Team Providers Name Role Phone Jose Holden MD Primary Care Provider [phone] Encounter Details Date Type Department Care Team Description 06/20/2018 Consent for [facility] Procedure/Treat [facility] Tony Alvarado MD FOR TX/PROCEDURE ent Pain Management [address] [place] [phone] Social History Tobacco Use Types Packs/Day Years [...] filedocumented in this encounter Care Teams Concrete Engineering Technician Relationship Specialty Start Date End Date Jose Holden MD PCP - General Otolaryngology 12/14/[address] [place], [place] [phone] documented as of this encounter
--- OUTSIDE RECORDS SUMMARY | 2022-09-09 07:50 | XMS_ITS | Encounter Summary ---
:1965 Author Organization [facility] Address [address], [place] [address] Care Team Providers Name Role Phone Jose Holden MD Primary Care Provider [phone] Reason for Visit Reason Comments APPOINTMENT REQUEST Encounter Details Date Type Department Care Team Description 11/13/2018 Telephone [facility] Pete Gonzalez MD APPOINTMENT REQUEST [facility] [address] [place], [place] [address]E Neurosurgery/Ortho [place], [place] [address] [address] [place] [address] [phone] Social History Tobacco Use Types Packs/Day Years [...] Jana Marcos - 11/16/2018 3:46 PM CST Litigation Assistant spoke to the pt and helped schedule an appt with Dr. Gonzalez on 12/26/17 at 1:40PM. Pt was in agreement of date, time and location. Jana Marcos 11/16/2018, 3:46 PM ARCH HYDROLOGIST Chava Simon RN - 11/16/2018 1:15 PM CST Per Sirisha Rolandson Gunnar, URBAN ANTHROPOLOGIST: patient can follow up with Dr. Gonzalez with repeat upright cervical XRs. Rachid: please call patient and assist in scheduling her for an appointment with Dr. Gonzalez at next available with XR Chava Simon RN 11/16/2018, 1:20 PM ARCH HYDROLOGIST Chava Simon RN - 11/16/2018 11:15 AM [...] RN - 11/15/2018 11:21 AM CST [facility]- still have not received CD from [facility]. If patient calls back, please let her [...] plan? Chava Simon RN 11/13/2018, 9:12 AM ARCH HYDROLOGIST Michael Cruz - 11/13/2018 8:23 AM CST Patient called in requesting for an appointment with Dr. Gonzalez himself only and not APPs. She states she fell on ice last week 11/09/18 and went to [facility] to be evaluated. She reports the left [...] Gonzalez to ensure everything is well as [facility] is not theones who did surgery on her and cannot compare this to before and after surgery. Litigation Assistant called [facility] and spoke with Mandy in the film room. They are not able to push imaging but they can send a CD. Address was provided for her of mail stop [id number] [facility] Attn: Dr. Gonzalez. She states the report will also be included in the CD. She then transferred me to Medical Records. Litigation Assistant spoke with Shauna who states patient will need to sign an CODI to obtain ED note from 11/09/18 to be sent to us as they are not affiliated with [employer] system. Litigation Assistant reached patient and relayed she would need [...] being sent. Michael Cruz 11/13/2018, 8:43 AM ARCH HYDROLOGIST documented in this encounter Plan of Treatment Not on filedocumented as of this encounter Visit Diagnoses Diagnosis S/P cervical spinal fusion - Primary Arthrodesis status documented in this encounter Care Teams Alarm Installer Relationship Specialty Start Date End Date Jose Holden MD PCP - General Otolaryngology 12/14/17 [place] [address] documented as of this encounter
--- OUTSIDE RECORDS SUMMARY | 2022-09-09 07:50 | XMS_ITS | Encounter Summary ---
:1965 [facility] Address [address] [address] Care Team Providers Name Role Phone Jose Holden MD Primary Care Provider [phone] Encounter Details Date Type Department Care Team Description 11/10/2018 Emergency Room External to External, Provid er FALL/HEADACHE NECK LT No address [place] [address] Social History Tobacco Use Types Packs/Day Years [...] on filedocumented in this encounter Care Teams Pig Handler Relationship Specialty Start Date End Date Jose Holden MD PCP - General Otolaryngology 12/14/17 [place] [address] documented as of this encounter
--- OUTSIDE RECORDS SUMMARY | 2022-09-09 07:50 | XMS_ITS | Encounter Summary ---
:1965 [facility] Address [address] [place] [address] Care Team Providers Name Role Phone Jose Holden MD Primary Care Provider [phone] Encounter Details Date Type Department Care Team [...] on filedocumented in this encounter Care Teams Timber Supervisor Relationship Specialty Start Date End Date Jose Holden MD PCP - General Otolaryngology 12/14/17 [place] [address] documented as of this encounter
--- OUTSIDE RECORDS SUMMARY | 2022-09-09 07:50 | XMS_ITS | Encounter Summary ---
:1965 Author Organization [facility] Address [address] [place] [address] Care Team Providers Name Role Phone Jose Holden MD Primary Care Provider [phone] Encounter Details Date Type Department Care Team Description 12/26/2018 Consent for [facility], CONSENT FOR Procedure/[facility] Tony Alvarado MD PROCEDURE ent Pain Management [address] [place] [phone] Social History Tobacco Use Types Packs/Day Years [...] on filedocumented in this encounter Care Teams Graphics Editor Relationship Specialty Start Date End Date Jose Holden MD PCP - General Otolaryngology 12/14/[address] [place] [address] documented as of this encounter
--- OUTSIDE RECORDS SUMMARY | 2022-09-09 07:50 | XMS_ITS | Encounter Summary ---
:1965 Author Organization [facility] Address [address] [place] [address] Care Team Providers Name Role Phone Jose Holden MD Primary Care Provider [phone] Encounter Details Date Type Department Care Team Description 07/10/2018 Consent for [facility] Procedure/Treat Neuro[facility] Tony Alvarado MD FOR TX/PROCEDURE ent Pain Management [address] [place] [phone] Social History Tobacco Use Types Packs/Day Years [...] on filedocumented in this encounter Care Teams Crossing Tender Relationship Specialty Start Date End Date Jose Holden MD PCP - General Otolaryngology 12/14/[address] [place], [place] [id number] documented as of this encounter
--- OUTSIDE RECORDS SUMMARY | 2022-09-09 07:50 | XMS_ITS | Encounter Summary ---
:1965 Author [facility] Address [address], [place] [address] Care Team Providers Name Role Phone Jose Holden MD Primary Care Provider [phone] Reason for Visit Reason Comments Injection Encounter Details Date Type Department Care Team Description 09/04/2018 Telephone [facility] Neuroscience Pete Gonzalez MD Injection Center Neurosurgery/Ortho [address] [facility] Spine [place], [place] [address] [address] [place] [address] [phone] Social History Tobacco Use Types Packs/Day Years [...] 09/05/2018 10:13 AM CDT Per Sirisha Maher, WHEEL LACER AND TRUER: cannot write letter. Okay for repeat bilateral [...] Cervicalgia documented in this encounter Care Teams Group Activities Aide Relationship Specialty Start Date End Date Jose Holden MD PCP - General Otolaryngology 12/14/17 [place] [id number] documented as of this encounter
--- OUTSIDE RECORDS SUMMARY | 2022-09-09 07:50 | XMS_ITS | Encounter Summary ---
:1965 Author Organization [facility] Address [address] [place] [address] Care Team Providers Name Role Phone Jose Holden MD Primary Care Provider Encounter Details Date Type Department Care Team Description 03/24/[address] [facility] Chava Simon RN [place] Neurosurgery/ Ortho Spine [address] [place] [address] Social History Tobacco Use Types Packs/Day [...] RN 03/24/2018, 10:24 AM Sirisha Rankin, NIKKY, CHASSIS WIRER - 03/24/2018 9:52 AM CDT Continue to monitor symptoms. No change in plan/appointment at this time. We will review cervical CTwhen it is available. Sirisha Jefferson APRN, CHASSIS WIRER 03/24/2018, 9:53 AM Chava Simon RN - 03/24/2018 9:23 AM CDT Patient called and state she was in a little accident last night. She ended up going to [facility]. They did imaging of neck [...] positioning. 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 Patient [...] clinic on 03/27/18 which were done at [facility]) Chava Simon RN 03/24/2018, 9:37 AM documented in this encounter Plan of Treatment Not on filedocumented as of this encounter Visit Diagnoses Not on filedocumented in this encounter Care Teams Tax Assessor Relationship Specialty Start Date End Date Jose Holden MD PCP - General Otolaryngology 12/14/[address] [place] [address] documented as of this encounter
--- OUTSIDE RECORDS SUMMARY | 2022-09-09 07:50 | XMS_ITS | Encounter Summary ---
:1965 Author Organization [facility] Address [address], [place] [address] Care Team Providers Name Role Phone Jose Holden MD Primary Care Provider Reason for Visit Reason Comments Revisit Encounter Details Date Type Department Care Team Description 08/14/2018 Office Visit [facility] Pete Gonzalez, Neck pain (Primary [facility] Center MD Dx) Neurosurgery/Ortho [address] [facility] Spine [address] [facility]. [place], [place] [address] [address] [phone] Social History Tobacco Use Types Packs/Day Years [...] Surgery center (4th floor [address], [place]).prior to your next appointment. Follow up: with [...] your understanding. Please call the Neurosurgery Center [phone] with any further questions or concerns or [...] Cervicalgia documented in this encounter Care Teams Communications Planner Relationship Specialty Start Date End Date Jose Holden MD PCP - General Otolaryngology 12/14/17 [facility] [place] [address] documented as of this encounter
--- OUTSIDE RECORDS SUMMARY | 2022-09-09 07:50 | XMS_ITS | Encounter Summary ---
:1965 Author Organization [facility] Address [address] [place] [address] Care Team Providers Name Role Phone Jose Holden MD Primary Care Provider [phone] Reason for Visit Reason Comments Revisit Bilateral cervical/thoracic trigger point injections Encounter Details Date Type Department Care Team Description 06/20/2018 Office Visit [facility] Myalgia (Primary Dx); Neuroscience Center Pain RMD H/O cervical spinal arthrodesis; Management [address] Cervical vertebral fusion; [address] [place], [place] Fibromyalgia; [place] [phone] Tobacco use disorder; [phone] Status post tot al left knee replacement [...] medications, in ALL states. As laws can awake overnight counselor time, one should review the state government [...] treatment plan is, please contact me via [employer] online messaging or call the office at [...] Oxycodone 5 mg Q6H - Prescribes by [facility], has been taking [...] at a pain clinic in the past. [facility] physical therapy: Past [...] anterior cervical fusion 2016 Dr. Ihsan Brooke, [facility] past surgical [...] facility-administered medications prior to visit. [place] Allergies: [...] in her mother. Social history:she lives in [place], [place].she is not currently working. Smokin/2 ppd. 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 Patient education: I went over the above diagnoses and treatment plan with her and answered all of her questions. 2. Imaging review: None 3. Exercise program: Regular exercise and activity 4. Medications: No changes. 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 The creation of this record [...] replacement documented in this encounter Care Teams Resident In Diagnostic Radiology Relationship Specialty Start Date End Date Jose Holden MD PCP - General Otolaryngology 12/14/17 [facility] [place] [address] documented as of this encounter
--- OUTSIDE RECORDS SUMMARY | 2022-09-09 07:50 | XMS_ITS | Encounter Summary ---
:1965 [facility] Address [address] [place] [address] Care Team Providers Name Role Phone Jose Holden MD Primary Care Provider [phone] Reason for Visit Procedure/Equipment (Routine) - Incomplete Specialty Diagnoses / Procedures Referred By Contact Refer red To Contact Diagnoses S/P cervical spinal fusion Sirisha Rankin, Procedures XR Cervical Spine AP/Lat Upright AGRICULTURAL AIRCRAFT PILOT, POWER BUILDER DEVELOPER [address] [place] [address] Referral ID Status Reason Start Date Expiration Date Visits V isits Requested Authorized [id number] Incomplete 04/05/2018 07/05/2019 1 1 Encounter Details Date Type Department Care Team Description 06/14/2018 Imaging [facility] Sneha Maher, S/P cervi [facility] spinal Neuroscience Center Sirisha Celaya, APR N, POWER BUILDER DEVELOPER fusion Radiology [address] [place] [address] [place] [address] [phone] Social History Tobacco Use Types Packs/Day Years [...] PM CDT Narrative 06/14/2018 5:54 PM CDT [facility] XR CERVICAL SPINE AP/LAT UPRIGHT 06/14/2018 [...] note might be different from the original. [facility] XR CERVICAL SPINE AP/LAT UPRIGHT 06/14/2018 [...] soft tissue swelling. Remainder unchanged. Sirisha Maher AGRICULTURAL AIRCRAFT PILOT, POWER BUILDER DEVELOPER RAD GD documented in this encounter Visit Diagnoses Diagnosis S/P cervical spinal fusion Arthrodesis status documented in this encounter Care Teams Weld Lay Out Worker Relationship Specialty Start Date End Date Jose Holden MD PCP - General Otolaryngology 12/14/17 [place] [address] documented as of this encounter
--- OUTSIDE RECORDS SUMMARY | 2022-09-09 07:50 | XMS_ITS | Encounter Summary ---
:1965 [facility] Address [address] [place] [address] Care Team Providers Name Role Phone Jose Holden MD Primary Care Provider [phone] Reason for Referral Therapies (Routine) - Closed Specialty Diagnoses / Procedures Referred By Contact Refer red To Contact Diagnoses S/P cervical spinal fusion Pete Gonzalez MD [address] [place] [address] Referral ID Status Reason Start Date Expiration Date Visits Requ ested Visits Authorized [id number] Closed 06/26/2018 08/25/2018 1 1 Scheduling Instructions Your provider has recommended an appoint ment with a [facility] Physical Therapist. Please stop at the clinic check out desk for assistance with scheduling or if you prefer to call for your appointment you may call [facility] [place] at [phone]. We suggest yo u call your health insurance company about your coverage and benefits for this appo intment. Reason for Visit Reason Comments RESULTS, TEST Orders Needed Encounter Details Date Type Department Care Team Description 06/22/2018 Telephone [facility] Pete Gonzalez MD RESULTS, TEST; Orders Neuroscience Center [address] [facility] eded Neurosurgery/Ortho S [address] [place] [address] [place] [id number] (Wo rk) Social History Tobacco Use Types [...] getting a stimulator or morphine pump through [facility] pain clinic. She is wondering if she should wait and discuss possible surgical options with Dr. Gonzalez or just get the stimulator or morphine pump? Please advise. Chava Simon RN 06/28/2018, 8:45 AM Michael Cruz - 06/28/2018 8:25 AM CDT Patient calling in regards to her imaging results. Propagator Laborer relayed message from Lois Pham PA-C. Patient states that she would like a return call. Patient states she doesn't understand why there are no acute concerns? She will be seeing [facility] pain [facility] to discuss getting a stimulator or morphine pump. Patient would like to know if she should move forward with this from Neurosurgery standpoint. Please call patient to further discuss and advise. Michael Cruz 06/28/2018, 8:27 AM Chava Simon RN - 06/28/2018 8:24 AM CDT [facility] Chava Simon RN 06/28/2018, 8:26 AM [...] Michael Cruz - 06/26/2018 11:18 AM CDT Propagator Laborer reached patient and relayed message below to her. Patient expressed her appreciation. Per herrequest order has been sent to [facility] outpatient rehabilitation services at [phone] with a note to have them call patient to schedule. Patient aware they will reach out to schedule her for PT. She also states she picked up a copy of her imaging and they relayed that they had alreadysent one. Propagator Laborer called their radiology department and spoke to Selena who states a CD was not mailed out and she is not sure why. She took down clinic address of [address] [place] [address] [address] and stated she would send one out [...] sure she has had this sent from [facility] for team to review. Chava Simon RN [...] of CT and MRIthat were done at [facility] on 06/20. Informed pt that Dr. Gonzalez's [...] status documented in this encounter Care Teams Setter Machine Relationship Specialty Start Date End Date Jose Holden MD PCP - General Otolaryngology 12/14/17 [facility] [place] [address] documented as of this encounter
--- OUTSIDE RECORDS SUMMARY | 2022-09-09 07:50 | XMS_ITS | Encounter Summary ---
:1965 Author Organization [facility] Address [address] [address] Care Team Providers Name Role Phone Jose Holden MD Primary Care Provider [phone] Reason for Visit Reason Comments Forms Encounter Details Date Type Department Care Team Description 07/11/2018 Telephone [facility] Pete Gonzalez MD Forms Center [facility]surgery[facility]Ortho [address] [facility] [facility] [place] [address] [address] [place] [address] [phone] Social History Tobacco Use Types Packs/Day Years [...] on filedocumented in this encounter Care Teams Merchandise Director Relationship Specialty Start Date End Date Jose Holden MD PCP - General Otolaryngology 12/14/17 [place] [address] documented as of this encounter
--- OUTSIDE RECORDS SUMMARY | 2022-09-09 07:50 | XMS_ITS | Encounter Summary ---
:1965 Author Organization [facility] Address [address] [place] [address] Care Team Providers Name Role Phone Jose Holden MD Primary Care Provider [phone] Encounter Details Date Type Department Care Team Description 08/14/2018 Consent for [facility] Procedure/Treat Neuroscience Center Tony Alvarado MD FOR TX/PROCEDURE ent Pain Management [address] [place] [phone] Social History Tobacco Use Types Packs/Day Years [...] on filedocumented in this encounter Care Teams Trimming Operator Relationship Specialty Start Date End Date Jose Holden MD PCP - General Otolaryngology 12/14/[address] [place], [place] [phone] documented as of this encounter
--- OUTSIDE RECORDS SUMMARY | 2022-09-09 07:50 | XMS_ITS | Encounter Summary ---
:1965 [facility] Address [address] [address] Care Team Providers Name Role Phone Jose Holden MD Primary Care Provider [phone] Reason for Visit Reason Comments Refill Encounter Details Date Type Department Care Team Description 03/07/2018 [facility] Pete Gonzalez MD Refill Center [facility]surgery[facility]Ortho [address] [facility] [place] [address] [address] [place] [address] [phone] Social History Tobacco Use Types Packs/Day Years [...] on filedocumented in this encounter Care Teams Conduit Reamer Operator Relationship Specialty Start Date End Date Jose Holden MD PCP - General Otolaryngology 12/14/[address] [place] [address] documented as of this encounter
--- OUTSIDE RECORDS SUMMARY | 2022-09-09 07:50 | XMS_ITS | Encounter Summary ---
:1965 Author Organization [facility] Address [address] [place] [address] Care Team Providers Name Role Phone Jose Holden MD Primary Care Provider [phone] Reason for Referral Consult/Transfer Care (Routine) - Closed Specialty Diagnoses / Procedures Referred By Contact Refer red To Contact Diagnoses Traumatic brain injury, without loss of consciousness, initial encounter (HRC) Tony Pittman MD [address] [place] [address] Referral ID Status Reason Start Date Expiration Date Visits Requ ested Visits Authorized [id number] Closed 12/26/2018 03/26/2020 1 1 Scheduling Instructions Your provider has recommended an appoint ment with [facility]. You may call [phone] to schedule your appointment. If you prefer, a belt machine operator will contact you [facility] the next 3 business days to assist you in setting up this appointment. ECT ARTIST Reason for Visit Reason Comments Revisit Bilateral cervical/thoracic trigger point injections Encounter Details Date Type Department Care Team Description 12/26/2018 Office Visit Tony Huggins occipital neuralgia (Primary Dx); Neuroscience Center Pain RMD Myalgia; Management [address] H/O cervical spinal arthrodesis; [address] [place], [place] Traumatic brain injury, with out loss of consciousness, initial encounter (HRC) [place] [phone] Social History Tobacco Use Types Packs/Day Years [...] Comments Blood Pressure 115/72 12/26/2018 2:48 PM SUSPECT ARTIST Pulse 70 12/26/2018 2:48 PM SUSPECT ARTIST Temperature - - Respiratory Rate - - [...] treatment plan is, please contact me via [employer] online messaging or call the office at and ask to speak to a nurse. Tony Pittman MD Pain Medicine ECT ARTIST documented in this encounter Progress Notes Tony Pittman MD - 12/26/2018 2:15 PM CST [facility] Follow-up Visit 08/14/2018 Interim history: [...] Patient continues to get chronic oxycodone from [facility] in [place] and does not planon decreasing her dosage. [...] 5 mg Q6H - Prescribes by [facility], has been taking [...] a pain clinic in the past. [facility] physical therapy: Past [...] anterior cervical fusion 2016 Dr. Ihsan Brooke, [facility] past surgical [...] ??? medical cannabis patient certified Take 1 Clarence by mouth . ??? naloxone (NARCAN) 4 [...] Gain No facility-administered medications prior to visit. [place] and [place] Prescription [place] reviewed Allergies: [...] in her mother. Social history:she lives in [place], [place].she is not currently working. Smokin/2 [...] to traumatic brain injury clinic. 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 Patient education: I [...] Medicine Physical Medicine and Rehabilitation [facility] This document serves as a record of services personally performed by Tony Pittman MD. It was created on his behalf by Gillian Harding, a trained medical recruiter. The creation of this record is based on the scribe's personal observations and the provider's statements to her. The document has been checked and approved by the attending provider. ECT ARTIST documented in this encounter Plan of Treatment Scheduled Referrals Name Type Priority Associated Diagnoses Order S [facility] Referral Routine Traumatic brain injury, with out loss Ordered: 12/26/2018 of consciousness, initial en counter (HRC) documented as of this encounter Visit Diagnoses Diagnosis Bilateral occipital neuralgia - Primary Myalgia Mylagia and myositis, unspecified H/O cervical spinal arthrodesis Arthrodesis status Traumatic brain injury, without loss of consciousness, initial encounter (HRC) documented in this encounter Care Teams Wood Boring Machine Operator Relationship Specialty Start Date End Date Jose Holden MD PCP - General Otolaryngology 12/14/[address] [place] [address] documented as of this encounter
--- OUTSIDE RECORDS SUMMARY | 2022-09-09 07:50 | XMS_ITS | Encounter Summary ---
:1965 Author Organization [facility] Address [address] [place] [address] Care Team Providers Name Role Phone Jose Holden MD Primary Care Provider [phone] Reason for Visit Reason Comments UPDATE Encounter Details Date Type Department Care Team Description 07/07/2018 Telephone [facility] Gume Pittman, UPDATE [facility] [address] [place] [address] [place] [address] [phone] (Wo rk) Social History Tobacco Use Types [...] Arenas RN - 07/07/2018 12:44 PM CDT Folding Machine Tender called patient, she states she has left neck/shoulder pain that did not improve after TPI's last week. Pt shares her right side of neck/shoulder is getting tight again and she is having headaches. Pt wants to proceed with occipital nerve blocks for her headache. Folding Machine Tender offered patient appointment 07/10 which she accepted. [...] blocks instead in the future ??Barriers: 1. 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 Patient education: I [...] on filedocumented in this encounter Care Teams Bottle Assembler Relationship Specialty Start Date End Date Jose Holden MD PCP - General Otolaryngology 12/14/17 [place] [address] documented as of this encounter
--- OUTSIDE RECORDS SUMMARY | 2022-09-09 07:50 | XMS_ITS | Encounter Summary ---
:1965 Author Organization [facility] Address [address] [place] [address] Care Team Providers Name Role Phone Jose Holden MD Primary Care Provider [phone] Reason for Visit Reason Comments Revisit trigger point injections Encounter Details Date Type Department Care Team Description 06/29/2018 Office Visit [facility] Myalgia (Primary Dx); [facility] Raul Alvarado MD Medical marijuana use; Management [address] H/O cervical spinal arthrodesis; [address] [place], [place] [address] [phone] Social History Tobacco Use Types Packs/Day Years [...] treatment plan is, please contact me via [employer] online messaging or call the office at and ask to speak to a nurse. Tony Pittman MD Pain Medicine documented in this encounter Progress Notes Tony Pittman MD - 06/29/2018 10:20 AM CDT [facility] Follow-up Visit 06/29/2018 Interim history: [...] Oxycodone 5 mg Q6H - Prescribes by [facility], has been [...] at a pain clinic in the past. [facility] physical therapy: [...] ??? medical cannabis patient certified Take 1 [place] by mouth . ??? naloxone (NARCAN) 4 [...] Gain No facility-administered medications prior to visit. [place] and [place] Prescription Monitoring Program reviewed Allergies: Allergies Allergen [...] in her mother. Social history:she lives in [place], [place].she is not currently working. Smokin/2 ppd. 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 Patient education: [...] behalf by Gillian Harding, a trained medical research associate. The creation of this record is [...] disorder documented in this encounter Care Teams Duck Bill Operator Relationship Specialty Start Date End Date Jose Holden MD PCP - General Otolaryngology 12/14/[address] [place] [address] documented as of this encounter
--- OUTSIDE RECORDS SUMMARY | 2022-09-09 07:50 | XMS_ITS | Encounter Summary ---
:1965 Author Organization [facility] Address [address] [address] Care Team Providers Name Role Phone Jose Holden MD Primary Care Provider [phone] Reason for Visit Reason Comments Revisit Bilateral cervical/thoracic trigger point injections Encounter Details Date Type Department Care Team Description 08/14/2018 Office Visit [facility] occipital neuralgia (Primary Dx); [facility] Pain RMD Myalgia; Management [address] H/O cervical spinal arthrodesis [address] [place] [phone] Social History Tobacco Use Types Packs/Day Years [...] - 08/14/2018 3:00 PM CDT [facility] Follow-up Visit 08/14/2018 Interim history: [...] 5 mg Q6H - Prescribes by [facility], has been taking for [...] a pain clinic in the past. [facility] physical therapy: Past Acupuncture: [...] ??? medical cannabis patient certified Take 1 [place] by mouth . ??? naloxone (NARCAN) 4 [...] facility-administered medications prior to visit. [place] and [place] Prescription Monitoring Program reviewed Allergies: Allergies Allergen [...] in her mother. Social history:she lives in [place], [place].she is not currently working. Smokin/2 ppd. [...] of occipital nerve block today Barriers: 1. retirement opioid use Plan: 1. Patient education: I [...] his behalf by Gillian Harding, a trained administrative medical director. The creation of this record [...] status documented in this encounter Care Teams Home Care Physical Therapist Relationship Specialty Start Date End Date Jose oHlden MD PCP - General Otolaryngology 12/14/17 [facility] [place] [address] documented as of this encounter
--- OUTSIDE RECORDS SUMMARY | 2022-09-09 07:50 | XMS_ITS | Encounter Summary ---
:1965 Author Organization [facility] Address [address], [place] [address] Care Team Providers Name Role Phone Jose Holden MD Primary Care Provider [phone] Reason for Referral Procedure/Equipment (Routine) - Incomplete Specialty Diagnoses / Procedures Referred By Contact Refer red To Contact Diagnoses S/P cervical spinal fusion Sirisha Rankin, Procedures XR Cervical Spine AP/Lat Upright KALPANA SHER [address] [place] [address] Referral ID Status Reason Start Date Expiration Date Visits V isits Requested Authorized [id number] Incomplete 04/05/2018 07/05/2019 1 1 Reason for Visit Reason Comments POST-OP,EXAM Encounter Details Date Type Department Care Team Description 04/05/2018 Office Visit [facility] Sneha Maher, S/Camelia cervic al spinal [facility] RODRICK Newberry CNP fusion (Primary Dx) Neurosurgery/Ortho [address] Spine [place], [place] [address] [address] [place] [address] [phone] Social History Tobacco Use Types Packs/Day Years [...] your understanding. Please call the Neurosurgery Center [phone] with any further questions or concerns or if your symptoms worsen. Thank you for coming to see us today. We are your partner. documented in this encounter Progress Notes Sirisha Rankin, FULFILLMENT MAIL CLERK, FLIGHT CREW ORDNANCEMAN - 04/05/2018 1:00 PM CDT POSTOPERATIVE DIAGNOSES: [...] a divorce and plans to move to [place] in the next several months. She would like to have an appointment with Dr. Gonzalez prior to her move out of [facility]. She denies any incisional concerns. She has [...] elbow(tricep) R:5/5 L: 5/5 C8 - Finger flexors(hospital liaison) R:5/5 L: 5/5 T1 - Finger abduction/adduction [...] PM CDT Narrative 06/14/2018 5:54 PM CDT [facility] XR CERVICAL SPINE AP/LAT UPRIGHT 06/14/2018 1:41 [...] soft tissue swelling. Remainder unchanged. Sirisha Maher FULFILLMENT MAIL CLERK, FLIGHT CREW ORDNANCEMAN RAD GD documented in this encounter Visit Diagnoses Diagnosis S/P cervical spinal fusion - Primary Arthrodesis status S/P cervical spinal fusion Arthrodesis status documented in this encounter Care Teams Microsystems Engineer Relationship Specialty Start Date End Date Jose Holden MD PCP - General Otolaryngology 12/14/17 [place] [address] documented as of this encounter
--- OUTSIDE RECORDS SUMMARY | 2022-09-09 07:50 | XMS_ITS | Encounter Summary ---
:[address] [facility] Address [address] [place] [address] Care Team Providers Name Role Phone Jose Holden MD Primary Care Provider [phone] Encounter Details Date Type Department Care Team [...] HEAD 11/10/2018 12:00 AM Results for this ART DISPLAY MAKER procedure are i n the results section . documented in this encounter Results CT HEAD (11/10/2018 12:00 AM ART DISPLAY MAKER) Anatomical Region Laterality Modality Other Specimen (Source) Anatomical Location Collection Method / Collectio n Time Received Time / Laterality Volume 11/10/2018 Narrative This result has an attachment that is no t available. Phy No Primary/Referring DUMMY/OTHER/AR documented in this encounter Visit Diagnoses Not on filedocumented in this encounter Care Teams Application Support Relationship Specialty Start Date End Date Jose Holden MD PCP - General Otolaryngology 12/14/17 [place] [address] documented as of this encounter
--- OUTSIDE RECORDS SUMMARY | 2022-09-09 07:50 | XMS_ITS | Encounter Summary ---
:1965 Author Organization [facility] Address [address], [place] [address] Care Team Providers Name Role Phone Jose Holden MD Primary Care Provider [phone] Reason for Visit Procedure/Equipment (Routine) - Incomplete Specialty Diagnoses / Procedures Referred By Contact Refer red To Contact Diagnoses S/P cervical spinal fusion Sirisha Rankin, Procedures XR Cervical Spine AP/Lat Upright TOBACCO SPRAYER, HEMATOLOGY SUPERVISOR [address] [place] [address] Referral ID Status Reason Start Date Expiration Date Visits V isits Requested Authorized [id number] Incomplete 10/10/2018 01/09/2020 1 1 Encounter Details Date Type Department Care Team Description 12/26/2018 [facility]illary [facility] Sneha Maher, S/P cervi fr[place] Procedure [facility] Sirisha Celaya, TOBACCO SPRAYER, spinal fusion Radiology HEMATOLOGY SUPERVISOR [address] [place] [address] [place], [place] [phone] [facility] Social History Tobacco Use Types [...] spin al Results for this AP/LAT UPRIGHT OIL EXPLORATION ENGINEER fusion procedure are in the results section. documented in this encounter Results XR Cervical Spine AP/Lat Upright (12/26/2018 1:44 PM OIL EXPLORATION ENGINEER) Anatomical Region Laterality Modality Spine, C-Spine, Neck Computed Radiograph y Specimen (Source) Anatomical Collection Method Collection Time Re ceived Time Location / / Volume Laterality 12/26/2018 1:44 PM OIL EXPLORATION ENGINEER Narrative 12/26/2018 3:41 PM OIL EXPLORATION ENGINEER EXAM: XR CERVICAL SPINE AP/LAT UPRIGHT LOCATION: [facility] DATE/TIME: 12/26/2018 1:44 PM INDICATION: [...] XR CERVICAL SPINE AP/LAT UPRIGHT LOCATION: [facility] DATE/TIME: 12/26/2018 1:44 PM INDICATION: [...] C1-2 level on lateral view. Sirisha Maher TOBACCO SPRAYER, HEMATOLOGY SUPERVISOR RAD GD documented in this encounter Visit Diagnoses Diagnosis S/P cervical spinal fusion Arthrodesis status documented in this encounter Care Teams Professional Development Director Relationship Specialty Start Date End Date Jose Holdne MD PCP - General Otolaryngology 12/14/17 [place] [address] documented as of this encounter
--- OUTSIDE RECORDS SUMMARY | 2022-09-09 07:50 | XMS_ITS | Encounter Summary ---
:1965 Author [facility] Address [address] [place] [address] Care Team Providers Name Role Phone Jose Holden MD Primary Care Provider [phone] Encounter Details Date Type Department Care [...] on filedocumented in this encounter Care Teams Adoption Coordinator Relationship Specialty Start Date End Date Jose Holden MD PCP - General Otolaryngology 12/14/17 [address] [place] [address] documented as of this encounter
--- OUTSIDE RECORDS SUMMARY | 2022-09-09 07:50 | XMS_ITS | Encounter Summary ---
:1965 Author Organization [facility] Address [address] [place] [address] Care Team Providers Name Role Phone Jose Holden MD Primary Care Provider [phone] Reason for Visit Reason Comments Revisit repeat injections Occipital VS Trigger point Encounter Details Date Type Department Care Team Description 02/06/2019 Office Visit [facility], Bilateral occ ipital neuralgia (Primary Dx); [facility] Carole Bowden Myalgia; Pain Management [address] Fibromyalgia; [address] [place], [place] Cervical vertebral fusion; [place] [address] Spondylosis of cervical region without m yelopathy or radiculopathy [phone] Social History Tobacco Use Types Packs/Day Years [...] treatment plan is, please contact me via [employer] online messaging or call the office at and ask to speak to a nurse. Tony Pittman MD Pain Medicine documented in this encounter Progress Notes Tony Pittman MD - 02/06/2019 2:30 PM CDT [facility] Follow-up Visit 02/06/2019 [...] Oxycodone 5 mg Q6H - Prescribes by [facility], has been taking for [...] at a pain clinic in the past. [facility] physical therapy: Past Acupuncture: [...] ??? medical cannabis patient certified Take 1 [place] by mouth . ??? naloxone (NARCAN) 4 [...] facility-administered medications prior to visit. [place] and [place] Prescription Monitoring Program reviewed Allergies: [...] in her mother. Social history:she lives in [place], [place].she is not currently working. Smokin/2 ppd. [...] These are unchanged from previous. Barriers: 1. adjunct faculty for medical terminology opioid use Plan: 1. Patient education: I [...] MD Pain Medicine Physical Medicine and Rehabilitation [facility] Pain Management This note [...] myelopathy documented in this encounter Care Teams Refrigerator Mover Relationship Specialty Start Date End Date Jose Holden MD PCP - General Otolaryngology 12/14/[address] [place] [address] documented as of this encounter
--- OUTSIDE RECORDS SUMMARY | 2022-09-09 07:50 | XMS_ITS | Encounter Summary ---
:1965 Author Organization [facility] Address [address], [place] [address] Care Team Providers Name Role Phone Jose Holden MD Primary Care Provider [phone] Encounter Details Date Type Department Care Team Description 11/10/2018 Orders Only External to Pete Tamayo MD [address] [place], [place] [id number] (Wo rk) Social History Tobacco Use Types [...] 11/10/2018 12:00 AM R esults for this HAND FUR CLEANER procedure are i n the results section. documented in this encounter Results CT SCAN SPINE--SCAN (11/10/2018 12:00 AM HAND FUR CLEANER) Anatomical Region Laterality Modality Other Specimen (Source) Anatomical Location Collection Method / Collectio n Time Received Time / Laterality Volume 11/10/2018 Narrative This result has an attachment that is no t available. Pete Gonzalez MD DUMMY/OTHER/AR documented in this encounter Visit Diagnoses Not on filedocumented in this encounter Care Teams Optometrist Assistant Relationship Specialty Start Date End Date Jose Holden MD PCP - General Otolaryngology 12/14/17 [address] [place] [address] documented as of this encounter
--- OUTSIDE RECORDS SUMMARY | 2022-09-09 07:50 | XMS_ITS | Encounter Summary ---
:1965 Author Organization [facility] Address [address] [place] [address] Care Team Providers Name Role Phone Jose Holden MD Primary Care Provider [phone] Reason for Referral Procedure/Equipment (Routine) - Closed Specialty Diagnoses / Procedures Referred By Contact Refer red To Contact Diagnoses Neck pain Pete Gonzalez MD [address] [place] [address] Referral ID Status Reason Start Date Expiration Date Visits Requ ested Visits Authorized [id number] Closed 06/14/2018 12/11/2018 1 1 Scheduling Instructions [...] [facility] Neck pain Neurosurgery/Ortho [address] [facility] Spine S [address] [place] [address] [place] [address] Social History Tobacco Use Types Packs/Day Years [...] your understanding. Please call the Neurosurgery Center [phone] with any further questions or concerns or [...] Cervicalgia documented in this encounter Care Teams Electric Pile Driver Operator Relationship Specialty Start Date End Date Jose Holden MD PCP - General Otolaryngology 12/14/17 [place] [address] documented as of this encounter
--- OUTSIDE RECORDS SUMMARY | 2022-09-09 07:50 | XMS_ITS | Encounter Summary ---
:1965 Author Organization [facility] Address [address] [place] [address] Care Team Providers Name Role Phone Jose Holden MD Primary Care Provider [phone] Reason for Referral Therapies (Routine) - Closed Specialty Diagnoses / Procedures Referred By Contact Refer red To Contact Diagnoses S/P cervical spinal fusion Pete Gonzalez MD [facility] [address] [place] [address] Referral ID Status Reason Start Date Expiration Date Visits Requ ested Visits Authorized [id number] Closed 12/26/2018 02/24/2019 1 1 Scheduling Instructions Your provider has recommended an appoint ment with a [facility] Physical Therapist. Please stop at the clinic check out desk for assistance with scheduling or if you prefer to call for your appointment you may call [facility] at [phone]. We suggest you call your [facility] insurance company about your coverage and benefits for this appointment. SIT MIX OPERATOR Reason for Visit Reason Comments Revisit Encounter Details Date Type Department Care Team Description 12/26/2018 Office Visit [facility] Pete Gonzalez, S/P miguelito al spinal [facility] fusion (Primary Dx) [facility] [facility] [address] [place] [address] [place] [address] [phone] Social History Tobacco Use Types Packs/Day Years [...] Comments Blood Pressure 115/72 12/26/2018 1:48 PM TRANSIT MIX OPERATOR Pulse 70 12/26/2018 1:48 PM TRANSIT MIX OPERATOR Temperature 36.5 ??C (97.7 ??F) 12/26/2018 1:48 PM TRANSIT MIX OPERATOR Respiratory Rate - - Oxygen Saturation - - Inhaled Oxygen Concentration - - Weight 71.2 kg (157 lb) 12/26/2018 1:48 PM TRANSIT MIX OPERATOR Height 152.4 cm (5') 12/26/2018 1:48 PM TRANSIT MIX OPERATOR Body Mass Index 30.66 12/26/2018 1:48 PM TRANSIT MIX OPERATOR documented in this encounter Patient Instructions [...] your understanding. Please call the Neurosurgery Center [phone] with any further questions or concerns or if your symptoms worsen. Thank you for coming to see us today. We are your partner. SIT MIX OPERATOR documented in this encounter Progress Notes [...] at her current physical therapy Center at [facility] and also continued pain management [...] is prone to typos and grammatical errors. SIT MIX OPERATOR documented in this encounter Plan of Treatment Scheduled Referrals Name Type Priority Associated Diagnoses Order S [facility] Physical Therapy Referral Routine S/P cervical spinal fusi on Ordered: 12/26/2018 documented as of this encounter Visit Diagnoses Diagnosis S/P cervical spinal fusion - Primary Arthrodesis status documented in this encounter Care Teams Buffet Server Relationship Specialty Start Date End Date Jose Holden MD PCP - General Otolaryngology 12/14/17 [place] [address] documented as of this encounter
--- OUTSIDE RECORDS SUMMARY | 2022-09-09 07:51 | XMS_ITS | Encounter Summary ---
:1965 Author Organization [facility] Address [address], [place] [address] Care Team Providers Name Role Phone Jose Holden MD Primary Care Provider [phone] Reason for Visit Auth/Cert Specialty Diagnoses / [...] Expiration Date Visits Requ ested Visits Authorized [id number] 1 1 Encounter Details Date Type Department Care Team Description 02/20/2018 [facility] Pete Gonzalez MD [address] [place] [address] [place] [address] [phone] (Wo rk) Social History Tobacco Use Types [...] 2:06 PM CDT Fluoroscopy provided by a instructional design technologist. Exact fluoroscopy time is documented in end of exam information in EPIC Pete Gonzalez MD RAD GD documented in this encounter Visit Diagnoses Not on filedocumented in this encounter Care Teams Division Service Manager Relationship Specialty Start Date End Date Jose Holden MD PCP - General Otolaryngology 12/14/[address] [place], [place] [address] [address] documented as of this encounter
--- OUTSIDE RECORDS SUMMARY | 2022-09-09 07:51 | XMS_ITS | Encounter Summary ---
:1965 Author Organization [facility] Address [address] [address] Care Team Providers Name Role Phone Jose Holden MD Primary Care Provider [phone] Reason for Visit Reason Onset Date Comments Refill 03/01/2018 Encounter Details Date Type Department Care Team Description 03/01/2018 Refill [facility] Chava Simon RN Refill Neurosurgery/Ortho S [address] [place] [address] Social History Tobacco Use Types [...] as per standard weaning. Sirisha Jefferson APRN, HALL TENDER 03/01/2018, 11:49 AM Chava Simon RN - [...] pt. have a f/u appointment: 04/05/2018 Pharmacy: [facility] pharmacy Chava Simon RN 03/01/2018, 11:40 AM documented in this encounter Plan of Treatment Not on filedocumented as of this encounter Visit Diagnoses Not on filedocumented in this encounter Care Teams Oceanographer Geological Relationship Specialty Start Date End Date Jose Holden MD PCP - General Otolaryngology 12/14/[address] [place], [place] [address] [address] documented as of this encounter
--- OUTSIDE RECORDS SUMMARY | 2022-09-09 07:51 | XMS_ITS | Encounter Summary ---
:1965 Author Organization [facility] Address [address], [place] [address] Care Team Providers Name Role Phone Jose Holden MD Primary Care Provider [phone] Reason for Visit Reason Comments QUESTIONS, GENERAL Encounter Details Date Type Department Care Team Description 02/24/2018 Telephone [facility] Pete Gonzalez MD QUESTIONS, GENERAL [facility] [address] [facility] Neurosurgery/Ortho S [place], [place] [address] [address] [place] [address] [phone] Social History Tobacco Use Types Packs/Day Years [...] currently doing PT which was ordered through [facility] for her shoulder. She is worried [...] on filedocumented in this encounter Care Teams Hydramatic Specialist Relationship Specialty Start Date End Date Jose Holden MD PCP - General Otolaryngology 12/14/17 [facility] [place] [address] documented as of this encounter
--- OUTSIDE RECORDS SUMMARY | 2022-09-09 07:51 | XMS_ITS | Encounter Summary ---
:1965 Author [facility] Address [address] [address] Care Team Providers Name Role Phone Jose Holden MD Primary Care Provider [phone] Reason for Visit Auth/Cert Specialty Diagnoses / [...] Expiration Date Visits Requ ested Visits Authorized [id number] 1 1 Encounter Details Date Type Department Care Team Description 02/20/2018 [facility] Pete Gonzalez MD [address] [place] [address] [place] [address] [phone] (Wo rk) Social History Tobacco Use Types [...] on filedocumented in this encounter Care Teams Vehicle Operator Relationship Specialty Start Date End Date Jose Holden MD PCP - General Otolaryngology 12/14/[address] [place] [phone] (work) documented as of this encounter
--- OUTSIDE RECORDS SUMMARY | 2022-09-09 07:51 | XMS_ITS | Encounter Summary ---
:1965 Author Organization [facility] Address [address] [place] [address] Care Team Providers Name Role Phone Jose Holden MD Primary Care Provider [phone] Encounter Details Date Type Department Care Team Description 02/14/2018 [facility] Chava Simon, RN [place] [facility]ine [address] [place] [address] Social History Tobacco Use Types Packs/Day [...] if we have received her preop yet. Trader relayed we have not. Patient was given [phone] to have preop be faxed to us. Patient states she already talked to them and they said they already sent it but she will reach out to them again. Will await a return call from patient/watch out for fax. Michael Cruz 02/14/2018, 10:06 AM Chava Simon RN - 02/14/2018 9:11 AM CDT I still have not received patient's preop from [facility]. Could you please call patient and make sure she has had it faxed to us? Chava Simon RN 02/14/2018, 9:11 AM documented in this encounter Plan of Treatment Not on filedocumented as of this encounter Visit Diagnoses Not on filedocumented in this encounter Care Teams Instrument Person Relationship Specialty Start Date End Date Jose Holden MD PCP - General Otolaryngology 12/14/17 [facility] [place] [address] documented as of this encounter
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
--- OUTSIDE RECORDS SUMMARY | 2022-09-09 07:51 | XMS_ITS | Encounter Summary ---
:1965 [facility] Address [address], [place] [address] Care Team Providers Name Role Phone Jose [...] Expiration Date Visits Requ ested Visits Authorized [id number] 1 1 Encounter Details Date Type Department Care Team Description 02/20/2018 [facility] Pete Gonzalez MD [address] [place] [address] [place] [address] [phone] (Wo rk) Social History Tobacco Use Types [...] 12:36 PM CDT Fluoroscopy provided by a cytotechnologist. Exact fluoroscopy time is documented in end of exam information in EPIC Pete Gonzalez MD RAD GD documented in this encounter Visit Diagnoses Not on filedocumented in this encounter Care Teams Needleworker Relationship Specialty Start Date End Date Jose Holden MD PCP - General Otolaryngology 12/14/[address] [place] [address] documented as of this encounter
--- OUTSIDE RECORDS SUMMARY | 2022-09-09 07:51 | XMS_ITS | Encounter Summary ---
:1965 Author Organization [facility] Address [address] [address] Care Team Providers Name Role Phone Jose Holden MD Primary Care Provider [phone] Encounter Details Date Type Department Care Team [...] on filedocumented in this encounter Care Teams Circus Hand Relationship Specialty Start Date End Date Jose Holden MD PCP - General Otolaryngology 12/14/17 [place] [address] documented as of this encounter
--- OUTSIDE RECORDS SUMMARY | 2022-09-09 07:51 | XMS_ITS | Encounter Summary ---
:1965 [facility] Address [address] [address] Care Team Providers Name Role Phone Jose Holden MD Primary Care Provider [phone] Reason for Visit Auth/Cert Specialty Diagnoses / [...] Expiration Date Visits Requ ested Visits Authorized [id number] 1 1 Encounter Details Date Type Department Care Team Description 02/21/2018 [facility] Pete Gonzalez MD [address] [place] [address] [place] [address] [phone] (Wo rk) Social History Tobacco Use Types [...] on filedocumented in this encounter Care Teams Backup Operator Relationship Specialty Start Date End Date Jose Holden MD PCP - General Otolaryngology 12/14/[address] [place] [address] documented as of this encounter
--- OUTSIDE RECORDS SUMMARY | 2022-09-09 07:51 | XMS_ITS | Encounter Summary ---
:1965 Author Organization [facility] Address [address] [address] Care Team Providers Name Role Phone Jose Holden MD Primary Care Provider [phone] Reason for Visit Reason Comments QUESTIONS, GENERAL Encounter Details Date Type Department Care Team Description 03/01/2018 Telephone [facility] Pete Gonzalez MD QUESTIONS, GENERAL [facility] [address] [facility] Neurosurgery/Ortho [address] [place], [place] [address] [address] [place] [address] [phone] Social History Tobacco Use Types Packs/Day Years [...] she should go to the ED in [place]? Please review and advise. Chantel Angela 03/01/2018, 11:15 AM documented in this encounter Plan of Treatment Not on filedocumented as of this encounter Visit Diagnoses Not on filedocumented in this encounter Care Teams Nutrition Services Assistant Relationship Specialty Start Date End Date Jose Holden MD PCP - General Otolaryngology 12/14/17 [facility] [place] [address] documented as of this encounter
--- OUTSIDE RECORDS SUMMARY | 2022-09-09 07:51 | XMS_ITS | Encounter Summary ---
:1965 Author Organization [facility] include 234 beds at the [facility] Address [address] [address] Care Team Providers Name Role Phone Jose Holden MD Primary Care Provider [phone] Reason for Visit Reason Comments POST-OP,EXAM Encounter Details Date Type Department Care Team Description 03/07/2018 Office Visit [facility] Denis P ostop check (Primary Center Neurosurgery/Ortho Dx ) Spine [address] [place], [place] [id number] Social History Tobacco Use Types Packs/Day Years [...] understanding. Please call the Neurosurgery/Spine Clinic at [phone] with any further questions or concerns. documented [...] surgery documented in this encounter Care Teams Manager Compensation Relationship Specialty Start Date End Date Jose Holden MD PCP - General Otolaryngology 12/14/17 [facility] [place] [address] documented as of this encounter
--- OUTSIDE RECORDS SUMMARY | 2022-09-09 07:51 | XMS_ITS | Encounter Summary ---
:1965 [facility] Address [address] [address] Care Team Providers Name Role Phone Jose Holden MD Primary Care Provider [phone] Reason for Referral Procedure/Equipment (Routine) - Incomplete Specialty Diagnoses / Procedures Referred By Contact Refer red To Contact Diagnoses Cervical spondylosis with radiculopathy (HRC) Sirisha Rankin, Procedures XR Cervical Spine AP/Lat Upright KALPANA SHER [address] [place] [address] Referral ID Status Reason Start Date Expiration Date Visits V isits Requested Authorized [id number] Incomplete 02/21/2018 05/23/2019 1 1 (Routine) Specialty Diagnoses / Procedures Referred By Contact Refer red To Contact Sirisha Rankin APRN, CNP [address] [place] [address] Referral ID Status Reason Start Date Expiration Date Visits Requ ested Visits Authorized (Routine) - Incomplete Specialty Diagnoses / Procedures Referred By Contact Refer red To Contact Procedures Marky Gonzalez MD XR C-Arm 0-30 Minutes [address] [place] [address] Referral ID Status Reason Start Date Expiration Date Visits V isits Requested Authorized [id number] Incomplete 02/20/2018 05/22/2019 1 1 Procedure/Equipment (Routine) - Incomplete Specialty Diagnoses / Procedures Referred By Contact Refer red To Contact Procedures Lois Pham, STEPHANIE XR Cervical Spine AP/Lat [address] [place], [place] [address] Referral ID Status Reason Start Date Expiration Date Visits V isits Requested Authorized [id number] Incomplete 02/20/2018 05/22/2019 1 1 (Routine) - Incomplete Specialty Diagnoses / Procedures Referred By Contact Refer red To Contact Procedures Marky Gonzalez MD XR C-Arm 30-[address] [place] [address] XR C-Arm 0-30 Minutes [place], [place] [address] Referral ID Status Reason Start Date Expiration Date Visits V isits Requested Authorized [id number] Incomplete 02/20/2018 05/22/2019 1 1 (Routine) - Incomplete Specialty Diagnoses / Procedures Referred By Contact Refer red To Contact Procedures Marky Gonzalez MD XR C-Arm 2.5-[address] [place] [address] Referral ID Status Reason Start Date Expiration Date Visits V isits Requested Authorized [id number] Incomplete 02/20/2018 05/22/2019 1 1 Reason for [...] Expiration Date Visits Requ ested Visits Authorized [id number] 1 1 Encounter Details Date Type Department Care Team Description 02/20/2018 - Hospital [facility] Marky Gonzalez, Cervical spondylosis with ra diculopathy (Primary Dx); 02/23/2018 Encounter [address] Ervin MD Cervical vertebral fusion; [place], [place] [address] [place] 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 ([facility]); [address] Neck pain; [phone] [facility], Screening procedure; [place] [address] Pseudarthrosis after fusion or arthrodes is; [phone] Bipolar II diso rder ([facility]); (Work) Moderate persistent asthma without statu s [...] in this encounter Discharge Summaries Sirisha Rankin, LIME KILN WORKER HELPER, WAITER/WAITRESS SECOND CLASS - 02/23/2018 9:09 AM CDT Neurosurgery Discharge [...] Hospital Course: Angie Bender was admitted to [facility] on 02/20/2018 following posterior C2-T3 [...] 9.4 - 12.4 fl Narrative Performed at [facility], [address] [place] [address] Physical Exam: BP 124/78 Pulse 74 Temp [...] in strength to your extremeties. Neurosurgery clinic [phone]. If it is after hours, please call [...] RN on 03/07 at 11AM at [address] [facility], 2nd floor. 2. Follow up with Dr. Gonzalez/Lois Pham PA-C/Sirisha Maher NP [facility]00[facility] Patient also instructed to call clinic at [phone] or hospital for any questions or concerns. Patient verbalizes understanding and states no further questions at this time. 3. Follow up with PCP for any medical issues Total time spent at the time of discharge was 30 minutes Sirisha Maher APRN, CNP [facility]#[phone] documented in this encounter Discharge Instructions Discharge InstructionsDonna Ellis RN - 02/23/2018 10:42 AM CDT Hospital Contact Information [address] [address] General Information Discharging physician: Dr. Gonzalez [facility] Emergency & Urgently Needed Care: For emergencies call 911 and/or get medical help right away. If you are a [facility] member and have medical needs after clinic hours [phone] or . Fall Prevention Recommendations ??? Follow [...] Ellis RN - 02/23/2018 11:50 AM CDT [facility] Discharge Note - Nursing Admission [...] of Report --- Sneha Maher, Sirisha Celaya, LIME KILN WORKER HELPER, WAITER/WAITRESS SECOND CLASS - 02/23/2018 9:02 AM CDT Neurosurgery Progress [...] including C3- T1 posterior fusion [place] appro[place] 6 years ago), with C6-T1 pseudoarthrosis, [...] Dc home today ?? Sirisha Maher, NIKKY, WAITER/WAITRESS SECOND CLASS 02/23/2018, 9:02 AM Neurosurgery Pgr#[phone] Jolene Kaur PA-C - 02/22/2018 12:45 PM [...] including C3- T1 posterior fusion ([place] approx 6 years ago), with C6-T1 pseudoarthrosis, [...] Lois Pham PA-C, 02/22/2018, 9:05 AM Neurosurgery [phone] He Reyes MD - 02/22/2018 8:29 AM [...] He Reyes M.D. [facility] [phone] INTERVAL HISTORY: She started tizanidine last night [...] mg 2-4 mg Oral Q8H PRN Lois hPam PA-C 4 mg at 02/22/18 0400 ??? zonisamide (ZONEGRAN) capsule 300 mg 300 mg Oral BID Jolene Kaur PA-C 300 mg at 02/22/18 0743 Current Outpatient Prescriptions Ordered in [facility] Medication Sig Dispense Refill ??? sennosides-docusate [...] TIME SPENT: 35 minutes including 50% time epml-xr-wnle time counseling her about her diagnosis and treatment options, and coordinating care with the primary team. DECISION-MAKING: The level of decision-making in this case is high/complex due to the complexity of medical problems, acute/chronic pain, opioid analgesia issues, and behavioral factors. He Reyes M.D. Brooklyn Whittington - 02/21/2018 1:47 PM CDT [facility] Care Management Screening Admission Info: [...] She see Dr Dr Estephanie Franz at [facility]. No DC needs anticipated. I verified the demographics on the face sheet for the correct address, phone number, emergency contact and PCP information. Brooklyn Whittington RN CM [phone] Lois Pham PA-C - 02/21/2018 9:23 AM CDT Neurosurgery Progress Note Date of service: 02/21/2018 Subjective: Feels sore. Upset she did not have [employer] overnight. Wants to go smoke. Wants to [...] there were a couple of options including [employer] vs IV pain medications for post op pain control, and rationale for non [employer] at this time. Did discuss that would not recommend DC as drain still has high output. Upright xrays prior to DC Up with assistance Continue hemovac until <30/shift Soft collar when OOB, PRN in bed for comfort PT/OT Dispo: Anticipate home in next 1-2 days pending drain output Lois Pham PA-C, 02/21/2018, 9:23 AM Neurosurgery [phone] He Reyes MD - 02/20/2018 1:20 PM [address] Note from Dr. Covarrubias on 02/13/18: ? 1. On the day of surgery please order an Inpatient pain consult 2. Ketamine 5mg/h during surgery ?? Recommendations for opioids: ?? If using a [employer]: No oral opioids Start a [employer] pump with Dilaudid continuous IV infusion at a basal rate of 0.1 mg/hr with [employer] boluses of 0.2-0.4 mg every 10 minutes. ?? If not using a [employer]: Start dilaudid 2-4mg q3h prn (alternatively can [...] Pham PA-C - 02/20/2018 3:24 PM CDT [facility] Brief Operative Progress Note Surgery Date: 02/20/2018 Surgeon(s) and Role: * Marky Gonzalez MD - Primary PHYSICIAN SEWER CLEANER-Meka Pham Pre-op Diagnosis: * Cervical spondylosis with [...] The procedure was medically necessary for an front end assistant because Dr. Gonzalez needed the operative [...] Lois Pham PA-C, 02/20/2018, 3:25 PM Neurosurgery [phone] Marky Gonzalez MD - 02/20/2018 12:00 AM CDT ANGIE BENDER CSN: [id number] OPERATIVE REPORT DATE OF SURGERY: 02/20/2018 : 1965 SURGEON: MARKY GONZALEZ MD SEWER CLEANER: Lois Pham PA-C. PREOPERATIVE DIAGNOSES: 1. Status [...] performing all critical portions. MD YOLANDE COLEMAN/ALESSANDRO /[id number] cc: MARKY GONZALEZ MD documented in this [...] the risk. She has been on these termination clerk, desires to eventually come off. She also [...] He Reyes M.D. [facility] [phone] HISTORY OF PRESENT ILLNESS: Per Chart Review: [...] headache Opioid prescriber: Rosetta Martin-LEDY Jerry MD-valium CIRCLE EDGER database review: Risk Factors: History of substance [...] Lois Pham PA-C ??? glucose-ascorbic acid (aka [id number]) chewable tablet 4 Tab 4 Tab Oral [...] TIME SPENT: 70 minutes including 50% time ogeq-vt-hpsn time counseling her about her diagnosis and treatment options, and coordinating care with the primary team. DECISION-MAKING: The level of decision-making in this case is high/complex due to the complexity of medical problems, acute/chronic pain, opioid analgesia issues, and behavioral factors. documented in this encounter Miscellaneous Notes OR Nursing - Monica Pate RN - 02/20/2018 2:49 PM CDT [facility] Progress Note Patient Name: Angie [...] failure. Anatomic alignment. Shoulder prosthesis. Sirisha Maher LIME KILN WORKER HELPER, WAITER/WAITRESS SECOND CLASS RAD GD (ABNORMAL) Complete Blood Count-No Diff (02/22/2018 12:36 PM CDT) P athologist Signature WBC 10.2 4.0 - 11.0 [facility] k/ul HOSPITAL RBC 3.36 (L) 4.0 - 5.2 [facility] M/ul [facility] Hemoglobin 11.1 (L) 12.0 - 16.0 [facility] g/dl HOSPITAL HCT 33.2 (L) 36.0 - 46.0 [facility]PITAL MCV 98.8 80 - 100 fl [facility] MCH 33.0 26 - 34 pg [facility] MCHC 33.4 32 - 36 [facility] g/dl HOSPITAL RDW 14.4 11.5 - 14.5 [facility] HOSPITAL Platelets 183 150 - 450 [facility] k/[facility] MPV 10.6 9.4 - 12.4 [facility] Specimen Anatomical Collection Method Collection Time Receive d Time (Source) Location / / Volume Laterality 02/22/2018 12:36 02/22/2018 PM CDT 12:37 PM CDT Narrative [facility] - 02/22/2018 12:46 PM C DT Performed at [facility] , [address] [place] [address] Lois Pham PA-C LAB_1 Performing Organization Address City/State/ZIP Code Phon e Number [id number] [place] [address] XR Cervical Spine AP/Lat Upright (02/21/2018 9:50 [...] Organization Address City/State/ZIP Code Phon e Number [address] [address], [facility] (ABNORMAL) Basic Metabolic Panel (02/21/2018 7:12 AM CDT) athologist Signature Sodium 138 136 - 145 [facility] mmol/L [facility] Potassium 3.9 3.5 - 5.1 [facility] mmol/L [facility] Chloride 111 (H) 98 - 109 [facility] mmol/L [facility] CO2 20 20 - 29 [facility] mmol/L [facility] Anion Gap 7 7 - 16 [facility] (calc.) mmol/L [facility] Glucose 117 70 - 180 [facility] mg/dl [facility]OSPITAL Calcium 8.3 (L) 8.4 - 10.2 [facility] mg/dl [facility]OSPITAL BUN 14 7 - 26 [facility] mg/dl [facility] Creatinine 0.63 0.55 - [facility] 1.02 mg/dl HOSPITAL GFR, Estimated >60 >60 [facility] ml/min/1.7 [facility] 3m2 GFR, Est., If >60 >60 [facility] Black ml/min/1.7 [facility] 3m2 Specimen Anatomical Collection Method Collection Time Receive d Time (Source) Location / / Volume Laterality 02/21/2018 7:12 AM 8 7:13 CDT AM CDT Narrative [facility] - 02/21/2018 7:47 AM CD T Performed at [facility] , [address] [place] [address] Lois Pham PA-C LAB_1 Performing Organization Address City/State/[place] [address] [address], [facility] (ABNORMAL) Hemogram with Plts (02/21/2018 7:12 AM CDT) athologist Signature WBC 10.0 4.0 - 11.0 [facility] RBC 3.29 (L) 4.0 - 5.2 [facility] Hemoglobin 10.7 (L) 12.0 - 16.0 [facility] g/dl [facility] HCT 32.2 (L) 36.0 - 46.0 [facility] MCV 97.9 80 - 100 [facility] MCH 32.5 26 - 34 pg [facility] MCHC 33.2 32 - 36 [facility] g/dl [facility] RDW 13.9 11.5 - 14.5 [facility] Platelets 186 150 - 450 [facility] MPV 10.3 9.4 - 12.4 [facility] Specimen Anatomical Collection Method Collection Time Receive d Time (Source) Location / / Volume Laterality 02/21/2018 7:12 AM 8 7:13 CDT AM CDT Narrative [facility] - 02/21/2018 7:26 AM CD T Performed at [facility] , [address] [place] [address] Lois Pham PA-C LAB_1 Performing Organization Address City/[facility]/ZIP Code Phon e Number [address] [address], [facility] Glucose, Whole Blood POC (02/20/2018 11:20 PM CDT) P athologist Signature Glucose, Whole 140 70 - 180 [facility] Blood mg/dl [facility]OSPITAL Comment: Point of Care Testing No Action Required Specimen Anatomical Collection Method Collection Time Receive d Time (Source) Location / / Volume Laterality 02/20/2018 11:20 02/20/2018 PM CDT 11:26 PM CDT Marky Gonzalez MD LAB_1 Performing Organization Address [facility] Phon e Number [address] [address], [place] Glucose, Whole Blood POC (02/20/2018 5:05 PM CDT) P athologist Signature Glucose, Whole 145 70 - 180 [facility] Blood mg/dl [facility]OSPITAL Comment: Point of Care Testing No Action Required Specimen Anatomical Collection Method Collection Time Receive d Time (Source) Location / / Volume Laterality 02/20/2018 5:05 PM 8 5:25 CDT PM CDT Marky Gonzalez MD LAB_1 Performing Organization Address City/[facility]/ZIP [facility] Phon e Number [address] [address], [place] [phone] Glucose, Whole Blood POC (02/20/2018 3:45 PM [...] Organization Address City/State/ZIP Code Phon e Number [address] [address], [place] XR C-Arm 0-30 Minutes (02/20/2018 2:05 [...] Organization Address City/State/ZIP Code Phon e Number [address] [address], [place] Glucose, Whole Blood POC (02/20/2018 6:25 AM CDT) athologist Signature Glucose, Whole 90 70 - 180 [facility] Blood mg/dl [facility] Specimen Anatomical Collection Method Collection Time Receive d Time (Source) Location / / Volume Laterality 02/20/2018 6:25 AM 8 6:34 CDT AM CDT Marky Gonzalez MD LAB_1 Performing Organization Address City/[facility]/ZIP [facility] Phon e Number [address] [address], [facility] [phone] ABO/RH(D) Retype (02/20/2018 6:22 AM CDT) athologist Signature ABO/RH(D) A NEGATIVE [facility] Specimen Anatomical Collection Method Collection Time Receive d Time (Source) Location / / Volume Laterality 02/20/2018 6:22 AM 8 6:25 CDT AM CDT Narrative [facility] - 02/20/2018 7:06 AM CD T Performed at [facility] , [address] [place] [address] Marky Gonzalez MD LAB_1 Performing Organization Address [facility] Phon e Number [address] [address], [facility] INR/Protime (PT/INR) (02/20/2018 6:08 AM CDT) athologist Signature Protime 13.0 12.0 - 14.5 [facility] INR 1.0 0.9 - 1.1 [facility] Specimen Anatomical Collection Method Collection Time Receive d Time (Source) Location / / Volume Laterality 02/20/2018 6:08 AM 8 6:22 CDT AM CDT Narrative [facility] - 02/20/2018 6:40 AM CD T Performed at [facility] , [address] [place] [address] Sirisha Maher APRN, WAITER/WAITRESS SECOND CLASS LAB_1 Performing Organization Address [facility]/ZIP [facility] Phon e Number [address] [address], [facility] Hemogram with Platelets (02/20/2018 6:08 AM CDT) athologist Signature WBC 6.7 4.0 - 11.0 [facility] k/ul [facility] RBC 4.13 4.0 - 5.2 [facility] M/ul [facility] Hemoglobin 13.5 12.0 - 16.0 [facility] g/dl [facility] HCT 39.8 36.0 - 46.0 [facility]OSPITAL MCV 96.4 80 - 100 fl [facility] MCH 32.7 26 - 34 pg [facility] MCHC 33.9 32 - 36 [facility] g/dl HOSPITAL RDW 13.8 11.5 - 14.5 [facility] Platelets 245 150 - 450 [facility] k/[facility] MPV 10.6 9.4 - 12.4 [facility] Specimen Anatomical Collection Method Collection Time Receive d Time (Source) Location / / Volume Laterality 02/20/2018 6:08 AM 8 6:22 CDT AM CDT Narrative [facility] - 02/20/2018 6:32 AM CD T Performed at [facility] , [address] [place] [address] Sirisha Maher APRN, WAITER/WAITRESS SECOND CLASS LAB_1 Performing Organization Address [facility]/State/[place] [address] (ABNORMAL) Basic Metabolic Panel (02/20/2018 6:08 AM CDT) athologist Signature Sodium 139 136 - 145 [facility] mmol/L [facility] Potassium 4.4 3.5 - 5.1 [facility] mmol/L [facility] Comment: Specimen Slightly Hemolyzed Hemolysis May Affect Result Chloride 109 98 - 109 mmol/L [facility] AL CO2 18 (L) 20 - 29 mmol/L [facility] L Anion Gap (calc.) 12 7 - 16 mmol/L [facility] Glucose 96 70 - 180 mg/dl [facility] L Calcium 9.4 8.4 - 10.2 mg/dl [facility] BUN 14 7 - 26 mg/dl [facility] Creatinine 0.69 0.55 - 1.02 mg/dl [facility] PITAL GFR, Estimated >60 >60 ml/min/1.73m2 [facility] GFR, Est., If Black >60 >60 ml/min/1.73m2 [facility] Specimen Anatomical Collection Method Collection Time Receive d Time (Source) Location / / Volume Laterality 02/20/2018 6:08 AM 8 6:22 CDT AM CDT Narrative [facility] - 02/20/2018 6:52 AM CD T Performed at [facility] , [address] [place] [address] Sirisha Maher APRN WAITER/WAITRESS SECOND CLASS LAB_1 Performing Organization Address City/[facility] Phon e Number [address] [address], [facility] [phone] aPTT (Activated Partial Thromboplastin Time) (02/20/2018 6:08 AM CDT) P athologist Signature PTT 26.8 24.0 - 37.0 [facility] Specimen Anatomical Collection Method Collection Time Receive d Time (Source) Location / / Volume Laterality 02/20/2018 6:08 AM 8 6:22 CDT AM CDT Narrative [facility] - 02/20/2018 6:40 AM CD T Performed at [facility] , [address] [place] [address] Sirisha Maher APRN, WAITER/WAITRESS SECOND CLASS LAB_1 Performing Organization Address City/[facility] Phon e Number [address] [address], [facility] [phone] ABO Rh & Antibody Screen (Type & Screen) (02/20/2018 6:07 AM CDT) Patholo gist Method Time Signature Crossmatch 02/23/2018 [facility] ABO/RH(D) A NEGATIVE [facility] Antibody Screen NEGATIVE [facility] Specimen Anatomical Collection Method Collection Time Receive d Time (Source) Location / / Volume Laterality 02/20/2018 6:07 AM 8 6:22 CDT AM CDT Count includes the [facility] - 02/20/2018 7:10 AM CD T Performed at [facility] , [address] [place] [address] Sirisha Maher APRN, CNP LAB_1 Performing Organization Address City/State/ZIP Code Phon e Number [address] [address], [facility] [phone] EKG IP (02/20/2018 12:00 AM CDT) Specimen (Source) Anatomical Location Collection Method / Collectio n Time Received Time / Laterality Volume 02/20/2018 Narrative This result has an attachment that is no t available. 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) Neck pain Cervicalgia Screening procedure Screening for unspecified condition Pseudarthrosis after fusion or arthrodes is Arthrodesis status Bipolar II disorder (HRC) Other bipolar disorders Moderate persistent asthma without statu s asthmaticus without complication (HRC) Chronic neck pain Cervicalgia 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 MD Notified Note Name of MD notified: Ankit Time of MD notification: 1600 hours and 1 minute Reason: Pt.asking for valium now and current order for HS prn. plz review. [id number]. Response: Valium one time dose now and HS prn. Shawn Butcher RN --- End of Report --- Plan of Care - Alec Gifford RN - 02/22/2018 1:57 PM CDT [facility] Plan of Care Note Assessment: [...] Lundberg RN - 02/22/2018 2:32 AM CDT [facility] Plan of Care Note Assessment: [...] Orellana RN - 02/22/2018 12:33 AM CDT [facility] Plan of Care Note Assessment: [...] Gifford RN - 02/21/2018 1:41 PM CDT [facility] Plan of Care Note Assessment: [...] Lundberg RN - 02/21/2018 4:56 AM CDT [facility]. MD Notified Note Name of MD notified: Neurosurg Time of MD notification: 0400 hours and 55 minutes Reason: [id number]- Pt reporting oral/IV pain meds ineffective. Pt upset, req further intervention. Please advise. Thanks. Response: Discussed w/ neurosurg. To be addressed in AM and PRNs to continue to be administered as able. Anita Lundberg RN --- End of Report --- Plan of Care - Anita Lundberg RN - 02/21/2018 2:26 AM CDT [facility] Plan of Care Note Assessment: [...] of pain;pacing/restlessness Goal: Acceptable Pain Control/Comfort Level 02/20/182355 Pain, Acute (Adult) Acceptable Pain Control/Comfort Level unable to achieve outcome Comments: [facility] Plan of Care Note Assessment: posterior neck pain worst than anterior Plan: IHR, assessment, pain control Subjective: I thought that I was going to be on a dilaudid drip Objective: Pt angry that she was not on a [employer] pump, Dilaudid PO and IV given q3h, [...] PM CDT 50 mcg 25-50 mcg, Intravenous, [id number], Pain, Starting on Tue02/20/18 at 1451, Until [...] Alec Gifford RN)1333 (Given - Provider: Alec Gifford RN)1958 (Given - Provider: Judith [...] Alec Gifford RN)2108 (Given - Provider: Judith Orellana RN) 0744 (Given - Provider: Alec Gifford RN)1943 (Given - Provider: Anisha Bach, RADHA) 0822 [...] pt request)2231 (Patch Removed - Provider: Shawn Patton, RADHA) 817 (Patch Applied - Provider: Marlen navas, [...] 0820 (Given - Provider: Marlen Segura, RADHA) 80 mg, Oral, DAILY, First dose on [...] Bach RN) 0819 (Given - Provider: Marlen Segura RN) 20 mEq, Oral, BID, First dose on Tue02/21/18 at 0945 pregabalin (LYRICA) capsule 150 mg (CANCELED) 0739 (Gi saeid - Provider: Alec Gifford RN) 150 mg, Oral, BID, First dose on Tue02/20/18 at 2000, PACU & Pos t-op pregabalin (LYRICA) capsule 150 mg(Linked Group 1) 0743 (Given - Provider: Alec Gifford RN) 0818 (Given - Provider: Marlen Segura RN) 150 mg, Oral, DAILY, First dose on [...] Tab 0739 (Given - Provider: Alec Gifford RN)1958 (Given - Provider: Judith Orellana RN) 0744 (Given - Provider: Aelc Gifford RN)194 (Given - Provider: Anisha Bach RN) 0820 (Given - Provider: Marlen Segura, RADHA) 2 Tablet, Oral, BID, First dose on [...] RN)0800 (Canceled Entry - Provider: Marlen Segura, RN) 3 mL, Intravenous, Q8H, First dose on Mo 02/20/18 at 1700, May DC IVF and saline lock once pt tolerating PO intake adequately. Saline lock until discontinued., PACU & Post-op 1613 (Given - Provider: Judith Orellana, RADHA) tiotropium (SPIRIVA) inhalation capsule 18 mcg 1022 (G iven - Provider: Alec Gifford RN) 0744 (Given - Provider: Alec Gifford RN) 0822 (Given - P rovider: Marlen Segura, [...] Alec Gifford, RADHA)1942 (Given - Provider: Anisha Bach RN) 0819 [...] 10 mg, Rectal, DAILY PRN, Constipation, Starting 02/21/18 at 0000, PACU & Post-op diazePAM (VALIUM) tablet 2.5-5 mg (COMPLETED) 1713 (Given - Provider: Shawn Patton RN) 2.5-5 mg, Oral, ONCE PRN, Anxiety, Starting [...] Anita Lundberg, RADHA)0704 (Given - Provider: Anita Lundberg RN)1028 (Given - Provider: Alec Gifford RN) 0.2-0.4 [...] Lundberg RN)0738 (Given - Provider: Alec Gifford, RN)1034 (Given - Provider: Alec Gifford, RN)1612 (Given - Provider: Judith Orellana, RN) 0227 (Given - Provider: Anita bunch RN)0540 (Given - Provider: Anita Lundberg RN)0836 (Given - Provider: Alec Gifford, RN)1140 (Given - Provider: Alec Gifford, RN)1433 (Given - Provider: Alec Miguel RN) 0022 (Given - Provider: Heather espinoza RN)0325 (Given - Provider: Heather Carbajal RN)0643 [...] mg 13 03 (Given - Provider: Coral Beaver, RADHA) 0708 (Given - Provider: Anita Lundberg RN) [...] Alec Gifford RN)2052 (Given - Provider: Shawn Patton, RADHA) 0510 (Given - Provider: Heather Carbajal RN) [...] HS
documented in this encounter Care Teams Tip Stitcher Relationship Specialty Start Date End Date Jose Holden MD PCP - General Otolaryngology 12/14/17 [address] [place] [address] documented as of this encounter
--- OUTSIDE RECORDS SUMMARY | 2022-09-09 07:51 | XMS_ITS | Encounter Summary ---
:1965 Author Organization [facility] Address [address] [place] [address] Care Team Providers Name Role Phone Jose Holden MD Primary Care Provider [phone] Reason for Visit Reason Comments Medication Questions FYI Encounter Details Date Type Department Care Team Description 03/01/2018 Telephone [facility] Pete Gonzalez MD Medication Questions; [facility] [address] [place] [address] FY I Neurosurgery/Ortho [address] [place] [address] [place] [address] [phone] (Wo rk) Social History Tobacco Use Types [...] on filedocumented in this encounter Care Teams Home Health Care Provider Relationship Specialty Start Date End Date Jose Holden MD PCP - General Otolaryngology 12/14/17 [facility] [place] [address] documented as of this encounter
--- OUTSIDE RECORDS SUMMARY | 2022-09-09 07:51 | XMS_ITS | Encounter Summary ---
:1965 Author Organization [facility] Address [address], [place] [address] Care Team Providers Name Role Phone Jose Holden MD Primary Care Provider [phone] Reason for Visit Auth/Cert Specialty Diagnoses / [...] Expiration Date Visits Requ ested Visits Authorized [id number] 1 1 Encounter Details Date Type Department Care Team Description 02/20/2018 [facility] Pete Gonzalez MD [address] [place] [address] [place] [address] [phone] (Wo rk) Social History Tobacco Use Types [...] 12:45 PM CDT Fluoroscopy provided by a medical imaging technologist. Exact fluoroscopy time is documented in end of exam information in EPIC Pete Gonzalez MD RAD GD documented in this encounter Visit Diagnoses Not on filedocumented in this encounter Care Teams Blindstitch Hemmer Relationship Specialty Start Date End Date Jose Holden MD PCP - General Otolaryngology 12/14/17 [facility] [place] [address] documented as of this encounter
--- OUTSIDE RECORDS SUMMARY | 2022-09-09 07:51 | XMS_ITS | Encounter Summary ---
:1965 Author Organization [facility] Address [address], [place] [address] Care Team Providers Name Role Phone Jose Holden MD Primary Care Provider [phone] Reason for Visit Auth/Cert Specialty Diagnoses / [...] Expiration Date Visits Requ ested Visits Authorized [id number] 1 1 Encounter Details Date Type Department Care Team Description 02/20/2018 Surgery RH Operating Room Marky Gonzalez MD FUSION POSTERIOR [address] [place] [address] [place] C2-T3, REMOVAL HARDWARE [phone] [id number] SPINE Anterior plate [phone] (Wo rk) and Posterior screws and rods [...] encounter Discharge Summaries Sneha Maher, Sirisha Celaya, CALENDER TENDER, AIRFLIGHT ATTENDANTS SUPERVISOR - 02/23/2018 9:09 AM CDT Neurosurgery Discharge [...] fl Narrative Performed at [facility], [address] [place] [address] Physical Exam: BP 124/78 Pulse 74 Temp [...] T1. 3. Intraoperative placement and removal of [facility] tongs. 4. Hardware removal, C6-T1 posterior. 5. [...] in strength to your extremeties. Neurosurgery clinic [phone]. If it is after hours, please call [...] neurosurgery RN on 03/07 at 11AM at [address] [place] [address], 2nd floor. 2. Follow up with Dr. Gonzalez/Lois Pham PA-C/Sirisha Maher NP on 04/05 at 1:00PM at [address] [place] [address]. Patient also instructed to call clinic at [phone] or [facility] for any questions or concerns. Patient verbalizes understanding and states no further questions at this time. 3. Follow up with PCP for any medical issues Total time spent at the time of discharge was 30 minutes Sirisha Maher APRN, [place]AL[place]NA Pgr#[phone] documented in this encounter Discharge Instructions Discharge InstructionsDonna Ellis RN - 02/23/2018 10:42 AM CD[place] [address] General Information Discharging physician: Dr. Gonzalez [facility] Emergency & Urgently Needed Care: For emergencies call 911 and/or get medical help right away. If you are a [facility] member and have medical needs after clinic hours you may call the [facility] [phone] or . Fall Prevention Recommendations ??? Follow [...] Ellis RN - 02/23/2018 11:50 AM CDT [facility] HOSPITAL Discharge Note - Nursing Admission [...] End of Report --- Sirisha Rankin APRN, AIRFLIGHT ATTENDANTS SUPERVISOR - 02/23/2018 9:02 AM CDT Neurosurgery Progress [...] including C3- T1 posterior fusion (done in [place] approx 6 years ago), with C6-T1 pseudoarthrosis, [...] Dc home today ?? Sirisha Maher APRN, AIRFLIGHT ATTENDANTS SUPERVISOR 02/23/2018, 9:02 AM Neurosurgery Pgr#[phone] Jolene Kaur PA-C - 02/22/2018 12:45 PM [...] including C3- T1 posterior fusion (done in [place] approx 6 years ago), with C6-T1 pseudoarthrosis, [...] Lois Pham PA-C, 02/22/2018, 9:05 AM Neurosurgery [phone] He Reyes MD - 02/22/2018 8:29 AM [...] with any questionsor concerns. He Reyes M.D. [facility] [phone] INTERVAL HISTORY: She started tizanidine last night [...] 02/22/18 0743 Current Outpatient Prescriptions Ordered in [facility] Medication Sig Dispense Refill ??? sennosides-docusate sodium [...] TIME SPENT: 35 minutes including 50% time dwio-rd-ladg time counseling her about her diagnosis and treatment options, and coordinating care with the primary team. DECISION-MAKING: The level of decision-making in this case is high/complex due to the complexity of medical problems, acute/chronic pain, opioid analgesia issues, and behavioral factors. He Reyes M.D. Brooklyn Whittington - 02/21/2018 1:47 PM CDT [facility] Care Management Screening Admission Info: Cognitive [...] She see Dr Dr Estephanie Franz at [facility]. No DC needs anticipated. I verified the demographics on the face sheet for the correct address, phone number, emergency contact and PCP information. Brooklyn Whittington RN CM [phone] Lois Pham PA-C - 02/21/2018 9:23 AM CDT Neurosurgery Progress Note Date of service: 02/21/2018 Subjective: Feels sore. Upset she did not have FOAM CASTER overnight. Wants to go smoke. Wants to [...] including C3- T1 posterior fusion (done in [place] approx 6 years ago), with C6-T1 pseudoarthrosis, [...] there were a couple of options including FOAM CASTER vs IV pain medications for post op pain control, and rationale for non FOAM CASTER at this time. Did discuss that would not recommend DC as drain still has high output. Upright xrays prior to DC Up with assistance Continue hemovac until <30/shift Soft collar when OOB, PRN in bed for comfort PT/OT Dispo: Anticipate home in next 1-2 days pending drain output Lois Pham PA-C, 02/21/2018, 9:23 AM Neurosurgery [phone] He Reyes MD - 02/20/2018 1:20 PM CDT Note from Dr. Covarrubias on 02/13/18: ? 1. On the day of surgery please order an Inpatient pain consult 2. Ketamine 5mg/h during surgery ?? Recommendations for opioids: ?? If using a FOAM CASTER: No oral opioids Start a FOAM CASTER pump with Dilaudid continuous IV infusion at a basal rate of 0.1 mg/hr with FOAM CASTER boluses of 0.2-0.4 mg every 10 minutes. ?? If not using a FOAM CASTER: Start dilaudid 2-4mg q3h prn (alternatively can [...] - 02/20/2018 3:24 PM CDT [facility] Brief Operative Progress Note Surgery Date: 02/20/2018 Surgeon(s) and Role: * Marky Gonzalez MD - Primary PHYSICIAN PROCESSING MANAGER-Meka Pham Pre-op Diagnosis: * Cervical spondylosis with [...] The procedure was medically necessary for an doctor assistant because Dr. Gonzalez needed the operative [...] Lois Pham PA-C, 02/20/2018, 3:25 PM Neurosurgery [phone] Marky Gonzalez MD - 02/20/2018 12:00 AM CDT [facility]: [id number] OPERATIVE REPORT DATE OF SURGERY: 02/20/2018 : 1965 SURGEON: MARKY GONZALEZ MD PROCESSING MANAGER: Lois Pham PA-C. PREOPERATIVE DIAGNOSES: 1. Status [...] stepwise fashion using absorbable suture. We placed [facility] tongs and then flipped the patient prone [...] all critical portions. MARKY GONZALEZ MD MMK/MODL /[id number] cc: MARKY GONZALEZ MD documented in this [...] the risk. She has been on these machine long goods helper, desires to eventually come off. She [...] with any questionsor concerns. He Reyes M.D. [facility] [phone] HISTORY OF PRESENT ILLNESS: Per Chart Review: [...] - headache Opioid prescriber: LEDY Ojeda MD-valium [facility] database review: Risk Factors: History of [...] CURRENT MEDICATIONS: Current Facility-Administered Medications Ordered in [facility] Medication Dose Route Frequency Provider Last Rate [...] Lois Pham PA-C ??? glucose-ascorbic acid (aka [id number]) chewable tablet 4 Tab 4 Tab Oral [...] TIME SPENT: 70 minutes including 50% time [id number]-yy-dqmq time counseling her about her diagnosis and treatment options, and coordinating care with the primary team. DECISION-MAKING: The level of decision-making in this case is high/complex due to the complexity of medical problems, acute/chronic pain, opioid analgesia issues, and behavioral factors. documented in this encounter Miscellaneous Notes OR Nursing - Monica Pate, RN - 02/20/2018 2:49 PM CDT [facility] Progress Note Patient Name: Angie Bender [...] failure. Anatomic alignment. Shoulder prosthesis. Sirisha Maher CALENDER TENDER, AIRFLIGHT ATTENDANTS SUPERVISOR RAD GD (ABNORMAL) Complete Blood Count-No Diff (02/22/2018 12:36 PM CDT) athologist Signature WBC 10.2 4.0 - 11.0 [facility] RBC 3.36 (L) 4.0 - 5.2 [facility] Hemoglobin 11.1 (L) 12.0 - 16.0 [facility] g/dl [facility] HCT 33.2 (L) 36.0 - 46.0 [facility] MCV 98.8 80 - 100 fl [facility] MCH 33.0 26 - 34 pg [facility] MCHC 33.4 32 - 36 [facility] g/dl [facility] RDW 14.4 11.5 - 14.5 [facility] Platelets 183 150 - 450 [facility] MPV 10.6 9.4 - 12.4 [facility] Specimen Anatomical Collection Method Collection Time Receive d Time (Source) Location / / Volume Laterality 02/22/2018 12:36 02/22/2018 PM CDT 12:37 PM CDT Narrative [facility] - 02/22/2018 12:46 PM C DT Performed at [facility] , [address] [place] [address] Lois Pham PA-C LAB_1 Performing Organization Address City/State/ZIP Code Phon e Number [facility] [address] [place] [address] [address], [facility] XR Cervical Spine AP/Lat Upright (02/21/2018 9:50 [...] Marky Gonzalez MD LAB_1 Performing Organization Address City/[facility] Phon e Number [address] [address] [place] [address], [facility] (ABNORMAL) Basic Metabolic Panel (02/21/2018 [...] Est., If >60 >60 [facility] Black ml/min/1.7 [facility] 3m2 Specimen Anatomical Collection Method Collection Time Receive d Time (Source) Location / / Volume Laterality 02/21/2018 7:12 AM 8 7:13 CDT AM CDT Narrative [facility] - 02/21/2018 7:47 AM CD T Performed at [facility] , [address] [place] [address] Lois Pham PA-C LAB_1 Performing Organization Address [facility]/ZIP [facility] Phon e Number [address] [address] [place] [address], [facility] [phone] (ABNORMAL) Hemogram with Plts (02/21/2018 7:12 AM CDT) athologist Signature WBC 10.0 4.0 - 11.0 [facility] RBC 3.29 (L) 4.0 - 5.2 [facility] Hemoglobin 10.7 (L) 12.0 - 16.0 [facility] g/dl HOSPITAL HCT 32.2 (L) 36.0 - 46.0 [facility] MCV 97.9 80 - 100 fl [facility] MCH 32.5 26 - 34 pg [facility] MCHC 33.2 32 - 36 [facility] g/dl HOSPITAL RDW 13.9 11.5 - 14.5 [facility] Platelets 186 150 - 450 [facility] MPV 10.3 9.4 - 12.4 [facility] Specimen Anatomical Collection Method Collection Time Receive d Time (Source) Location / / Volume Laterality 02/21/2018 7:12 AM 8 7:13 CDT AM CDT Narrative [facility] - 02/21/2018 7:26 AM CD T Performed at [facility] , [address] [place] [address] Lois Pham PA-C LAB_1 Performing Organization Address City/[facility] Phon e Number [address] [address], [facility] Glucose, Whole Blood POC (02/20/2018 11:20 PM CDT) athologist Signature Glucose, Whole 140 70 - 180 [facility] Blood mg/dl [facility] Comment: Point of Care Testing No Action Required Specimen Anatomical Collection Method Collection Time Receive d Time (Source) Location / / Volume Laterality 02/20/2018 11:20 02/20/2018 PM CDT 11:26 PM CDT Marky Gonzalez MD LAB_1 Performing Organization Address City/[facility] Phon e Number [address] [address], [facility] Glucose, Whole Blood POC (02/20/2018 5:05 PM CDT) athologist Signature Glucose, Whole 145 70 - 180 [facility] Blood mg/dl [facility] Comment: Point of Care Testing No Action Required Specimen Anatomical Collection Method Collection Time Receive d Time (Source) Location / / Volume Laterality 02/20/2018 5:05 PM 8 5:25 CDT PM CDT Marky Gonzalez MD LAB_1 Performing Organization Address City/State/ZIP Code Phon e Number [address] [address], [facility] [phone] Glucose, Whole Blood POC (02/20/2018 3:45 PM CDT) athologist Signature Glucose, Whole 145 70 - 180 [facility] Blood mg/dl HOSPITAL Comment: Point of Care Testing No Action Required Specimen Anatomical Collection Method Collection Time Receive d Time (Source) Location / / Volume Laterality 02/20/2018 3:45 PM 8 3:52 CDT PM CDT Marky Gonzalez MD LAB_1 Performing Organization Address City/[facility]/ZIP Code Phon e Number [address] [address], [facility] [phone] XR C-Arm 0-30 Minutes (02/20/2018 2:05 PM CDT) Anatomical Region Laterality Modality Other Specimen (Source) Anatomical Location Collection Method / Collectio n Time Received Time / Laterality Volume Narrative 02/20/2018 2:06 PM CDT Fluoroscopy provided by a pharmacy technologist. Exact fluoroscopy time is documented in end of exam information in EPIC Marky Gonzalez MD RAD GD XR C-Arm 2.5-3 Hours (02/20/2018 12:45 PM CDT) Anatomical Region Laterality Modality Other Specimen (Source) Anatomical Location Collection Method / Collectio n Time Received Time / Laterality Volume Narrative 02/20/2018 12:45 PM CDT Fluoroscopy provided by a pharmacy technologist. Exact fluoroscopy time is documented in end of exam information in EPIC Marky Gonzalez MD RAD GD XR C-Arm 30-59 Minutes (02/20/2018 12:36 PM CDT) Anatomical Region Laterality Modality Other Specimen (Source) Anatomical Location Collection Method / Collectio n Time Received Time / Laterality Volume Narrative 02/20/2018 12:36 PM CDT Fluoroscopy provided by a pharmacy technologist. Exact fluoroscopy time is documented in end of exam information in EPIC Marky Gonzalez MD RAD GD Glucose, Whole Blood POC (02/20/2018 9:02 AM CDT) athologist Signature Glucose, Whole 135 70 - 180 [facility] Blood mg/dl [facility] Comment: Point of Care Testing RN Notified Specimen Anatomical Collection Method Collection Time Receive d Time (Source) Location / / Volume Laterality 02/20/2018 9:02 AM 8 9:08 CDT AM CDT Marky Gonzalez MD LAB_1 Performing Organization Address City/[facility]/ZIP Code Phon e Number [address] [address] [place] [address], [facility] Glucose, Whole Blood POC (02/20/2018 6:25 AM CDT) athologist Signature Glucose, Whole 90 70 - 180 [facility] Blood mg/dl [facility] Specimen Anatomical Collection Method Collection Time Receive d Time (Source) Location / / Volume Laterality 02/20/2018 6:25 AM 8 6:34 CDT AM CDT Marky Gonzalez MD LAB_1 Performing Organization Address City/[facility]/ZIP Code Phon e Number [address] [address], [facility] [phone] ABO/RH(D) Retype (02/20/2018 6:22 AM CDT) athologist Signature ABO/RH(D) A NEGATIVE [facility] Specimen Anatomical Collection Method Collection Time Receive d Time (Source) Location / / Volume Laterality 02/20/2018 6:22 AM 8 6:25 CDT AM CDT Narrative [facility] - 02/20/2018 7:06 AM CD T Performed at [facility] , [address] [place] [address] Marky Gonzalez MD LAB_1 Performing Organization Address City/[facility]/ZIP Code Phon e Number [address] [address], [facility] INR/Protime (PT/INR) (02/20/2018 6:08 AM CDT) P athologist Signature Protime 13.0 12.0 - 14.5 [facility] INR 1.0 0.9 - 1.1 [facility] Specimen Anatomical Collection Method Collection Time Receive d Time (Source) Location / / Volume Laterality 02/20/2018 6:08 AM 8 6:22 CDT AM CDT Narrative [facility] - 02/20/2018 6:40 AM CD T Performed at [facility] , [address] [place] [address] Sirisha Maher APRN, CNP LAB_1 Performing Organization Address City/[facility] Phon e Number [address] [address] [place] [address], [facility] Hemogram with Platelets (02/20/2018 6:08 AM CDT) P athologist Signature WBC 6.7 4.0 - 11.0 [facility] RBC 4.13 4.0 - 5.2 [facility] Hemoglobin 13.5 12.0 - 16.0 [facility] gdl [facility] HCT 39.8 36.0 - 46.0 [facility] MCV 96.4 80 - 100 [facility] MCH 32.7 26 - 34 pg [facility] MCHC 33.9 32 - 36 [facility] RDW 13.8 11.5 - 14.5 [facility] Platelets 245 150 - 450 [facility] MPV 10.6 9.4 - 12.4 [facility] Specimen Anatomical Collection Method Collection Time Receive d Time (Source) Location / / Volume Laterality 02/20/2018 6:08 AM 8 6:22 CDT AM CDT Narrative [facility] - 02/20/2018 6:32 AM CD T Performed at [facility] , [address] [place] [address] Sirisha Maher APRN, AIRFLIGHT ATTENDANTS SUPERVISOR LAB_1 Performing Organization Address City/[facility]/ZIP [facility] Phon e Number [address] [address], [facility] [phone] (ABNORMAL) Basic Metabolic Panel (02/20/2018 6:08 AM CDT) athologist Signature Sodium 139 136 - 145 [facility] mmol/L [facility] Potassium 4.4 3.5 - 5.1 [facility] mmol/L [facility]OSPITAL Comment: Specimen Slightly Hemolyzed Hemolysis May Affect Result Chloride 109 98 - 109 mmol/L [facility] AL CO2 18 (L) 20 - 29 mmol/L [facility] L Anion Gap (calc.) 12 7 - 16 mmol/L [facility] Glucose 96 70 - 180 mg/dl [facility] L Calcium 9.4 8.4 - 10.2 mg/dl [facility] EHSAN BUN 14 7 - 26 mg/dl [facility] Creatinine 0.69 0.55 - 1.02 mg/dl [facility] GFR, Estimated >60 >60 ml/min/1.73m2 [facility] GFR, Est., If Black >60 >60 ml/min/1.73m2 [facility] Specimen Anatomical Collection Method Collection Time Receive d Time (Source) Location / / Volume Laterality 02/20/2018 6:08 AM 8 6:22 CDT AM CDT [facility] - 02/20/2018 6:52 AM CD T Performed at [facility] , [address] [place] [address] Sirisha Maher APRN, AIRFLIGHT ATTENDANTS SUPERVISOR LAB_1 Performing Organization Address City/State/ZIP Code Phon e Number [address] [address], [facility] aPTT (Activated Partial Thromboplastin Time) (02/20/2018 6:08 AM CDT) athologist Signature PTT 26.8 24.0 - 37.0 [facility] sec [facility] Specimen Anatomical Collection Method Collection Time Receive d Time (Source) Location / / Volume Laterality 02/20/2018 6:08 AM 8 6:22 CDT AM CDT [facility] - 02/20/2018 6:40 AM CD T Performed at [facility] , [address] [place] [address] Sirisha Maher APRN, AIRFLIGHT ATTENDANTS SUPERVISOR LAB_1 Performing Organization Address City/[facility]/ZIP Code Phon e Number [address] [address], [facility] ABO Rh & Antibody Screen (Type & Screen) (02/20/2018 6:07 AM CDT) [facility] gist Method Time Signature Crossmatch 02/23/2018 [facility] ABO/RH(D) A NEGATIVE [facility] Antibody Screen NEGATIVE [facility] Specimen Anatomical Collection Method Collection Time Receive d Time (Source) Location / / Volume Laterality 02/20/2018 6:07 AM 8 6:22 CDT AM CDT Narrative [facility] - 02/20/2018 7:10 AM CD T Performed at [facility] , [address] [place] [address] Sirisha Maher APRN, KAL[place]NA LAB_1 Performing Organization Address City/[facility] Phon e Number [address] [address], [facility] EKG IP (02/20/2018 12:00 AM CDT) Specimen (Source) Anatomical Location Collection Method / Collectio n Time Received Time / Laterality Volume 02/20/2018 Narrative This result has an attachment that is no t available. Provider [facility] EKG documented in this encounter [...] s pine ([facility]) Cervical spondylosis with radiculopathy ([facility]) Cervical spondylosis with myelopathy Plan of Care - Marlen Segura RN - 02/23/2018 9:57 AM CDT [facility] Plan of Care Note Assessment: Incisions [...] - 02/23/2018 7:43 AM CDT [facility] Plan of Care Note Assessment: pain [...] - 02/22/2018 10:15 PM CDT [facility] Plan of Care Note Assessment: comfort [...] - 02/22/2018 4:00 PM CDT [facility]. MD Notified Note Name of MD notified: Ankit Time of MD notification: 1600 hours and 1 minute Reason: Pt.asking for valium now and current order for HS prn. plz review. [id number]. Response: Valium one time dose now and HS prn. Shawn Butcher RN --- End of Report --- Plan of Care - Alec Gifford RN - 02/22/2018 1:57 PM CDT [facility] Plan of Care Note Assessment: pain [...] and wants valium and hormone patch, Meka PA, notified and orders placed. I completed a full assessment and assessments as ordered and per policy on this patient during my work shift. Reassessments completed during my work shift are unchanged unless documented. --- End of Report --- Plan of Care - Anita Lundberg RN - 02/22/2018 2:32 AM CDT [facility] Plan of Care Note Assessment: Pain [...] of Report --- Plan of Care - Jduith Orellana RN - 02/22/2018 12:33 AM CDT [facility] Plan of Care Note Assessment: Pain [...] - 02/21/2018 1:41 PM CDT [facility] Plan of Care Note Assessment: pain [...] - 02/21/2018 4:56 AM CDT [facility]. MD Notified Note Name of MD notified: Neurosurg Time of MD notification: 0400 hours and 55 minutes Reason: [id number]- Pt reporting oral/IV pain meds ineffective. Pt upset, req further intervention. Please advise. Thanks. Response: Discussed w/ neurosurg. To be addressed in AM and PRNs to continue to be administered as able. Anita Lundberg RN --- End of Report --- Plan of Care - Anita Lundberg RN - 02/21/2018 2:26 AM CDT [facility] Plan of Care Note Assessment: Pain [...] and Signs and Symptoms Outcome: Progressing 02/20/18 1296 Pain, Acute Related Risk Factors (Acute Pain) surgery;procedure/treatment;persistent pain;disease process Signs and Symptoms (Acute Pain) alteration in muscle tone;sleep pattern alteration;verbalization of pain descriptors;questions meaning of pain;pacing/restlessness Goal: Acceptable Pain Control/Comfort Level 02/20/18 2356 Pain, Acute (Adult) Acceptable Pain Control/Comfort Level unable to achieve outcome Comments: [facility] Plan of Care Note Assessment: posterior neck pain worst than anterior Plan: IHR, assessment, pain control Subjective: I thought that I was going to be on a dilaudid drip Objective: Pt angry that she was not on a FOAM CASTER pump, Dilaudid PO and IV given q3h, [...] 10:32 AM CDT 2 Patches lidocaine-epinephrine 1 %-1:145060 injec tion Given 02/20/2018 10:21 AM CDT [...] Vomiting, Starting on Tue02/21/18 at 0917, Until Tue02/23/18 at 1350, Do not swallow tablet whole. [...] Gifford RN)1333 (Given - Provider: Alec Gifford, RN)1958 (Given - Provider: Judith Orellana, RN) 0743 (Given - Provider: Alec Gifford, RADHA)14 05 (Given - Provider: Alec Gifford RN)194 (Given - Provider: Anisha Bach, RADHA) 0821 [...] 1 Puff 1017 (Given - Provider: Alec Gifford, RADHA)2109 (Given - Provider: Judith Orellana, RADHA) 0744 (Given - Provider: Alec Gifford RN)1944 (Given - Provider: Anisha Bach RN) 0822 (Given - Provider: Marlen Segura RN) 1 Puff, Inhalation, BID, First dose on Tue02/21/18 at 0945 folic acid tablet 0.8 mg 1015 (Given - Provider: Alec Gifford RN) 0743 (Given - Provider: Alec Gifford RN) 0820 (Given - Provider: Marlen Segura, RADHA) 0.8 mg, Oral, DAILY, First dose on [...] Bach, RADHA) 0819 (Given - Provider: Marlen Segura RN) 200 mg, Oral, BID, First dose on [...] RN)2017 (Due: Patch Removed - Provider: Marlen Segura [...] 0820 (Given - Provider: Marlen Segura, RN) 5 mg, Oral, DAILY, First dose on [...] 0818 (Given - P rovider: Marlen Segura, RAHDA) 17 g, Oral, DAILY, First dose on 01/27 at 0800, Give daily while on narcotics. Do not give if ileus present., PACU & Post-op potassium chloride (K-DUR,KLOR-CONM) extended release tablet 20 mEq 1016 (Not Given - Provider: Alec Gifford RN - Reason: Patient/family refused)1958 (Not Given - Provider: Judith Orellana RN - Reason: Patient/family refused) 0744 (Given - Provider: Alec Gifford RN)1940 (Given - Provider: Anisha Bach, RADHA) 0819 [...] 2 Tablet, Oral, BID, First dose on Mon at 2000, as laxative/stimulant, stool-softening agent, PACU [...] & Post-op 1613 (Given - Provider: Judith Orellana RN) tiotropium (SPIRIVA) inhalation capsule 18 mcg 1022 [...] RN) 0743 (Given - Provider: Alec Gifford RN)1942 (Given - Provider: Anisha Bach RN) 0819 (Given - Provider: Marlen Segura, RADHA) 300 mg, Oral, BID, First dose on Tue02/21/18 at 0945 Continuous Medication Order 02/21/2018 02/22/2018 02/23/2018 sodium chloride 0.9% infusion (CANCELED) 0426 (New Bag Started - Provider: Anita Lundberg, RADHA)0933 (Stopped - Provider: Alec Gifford, RADHA) 1,000 [...] Coral Beaver, RADHA)2107 (Given - Provider: Judith Orellana, RADHA) 0035 (Given - Provider: Anita bunch RN)0355 [...] Alec Gifford RN)1612 (Given - Provider: Judith Orellana RN) 0227 (Given - Provider: Anita bunch RN)0540 (Given - Provider: Anita Lundberg RN)0836 (Given - Provider: Alec Gifford, RN)1140 (Given - Provider: Alec Gifford RN)1433 (Given - Provider: Alec Miguel RN) 0022 (Given - Provider: Heather espinoza RN)0325 (Given - Provider: Heather Carbajal RN)0643 (Given - Provider: Heather Carbajal, RADHA)0939 (Given - Provider: Marlen Segura RN) 2-4 [...] HS
documented in this encounter Care Teams Merchant Miller Relationship Specialty Start Date End Date Jose Holden MD PCP - General Otolaryngology 12/14/[address] [place] [address] documented as of this encounter
--- OUTSIDE RECORDS SUMMARY | 2022-09-09 07:52 | XMS_ITS | Encounter Summary ---
:1965 Author Organization [facility] Address [address] [place] [address] Care Team Providers Name Role Phone Jose Holden MD Primary Care Provider [phone] Encounter Details Date Type Department Care Team Description 01/20/2018 Telephone [facility] Chava Simon RN Center Neurosurgery/ Ortho Spine [address] [place] [address] Social History Tobacco Use Types Packs/Day [...] placed. Chava Simon RN 01/25/2018, 8:24 AM MEL CANDY MAKER Chava Simon RN - 01/24/2018 12:[address] Gonzalez reviewed imaging and is waiting until appropriate time to place case request. Chava Simon RN 01/24/2018, 12:45 PM MEL CANDY MAKER Gi De La Vega - 01/20/2018 11:21 AM CST Patient called to speak to RN. She has a new phone number. Please call her at [phone]. thanks MEL CANDY MAKER Chava Simon RN - 01/20/2018 11:15 AM CST Images from the original note were not included. Team please have Dr. Gonzalez review imaging which is now on PACs and place case request. Chava Simon RN 01/20/2018, 11:18 AM MEL CANDY MAKER documented in this encounter Plan of Treatment Not on filedocumented as of this encounter Visit Diagnoses Not on filedocumented in this encounter Care Teams Mortgage Clerk Relationship Specialty Start Date End Date Jose Holden MD PCP - General Otolaryngology 12/14/[address] [place], [place] [address] [address] documented as of this encounter
--- OUTSIDE RECORDS SUMMARY | 2022-09-09 07:52 | XMS_ITS | Encounter Summary ---
:1965 Author Organization [facility] Address [address], [place] [address] Care Team Providers Name Role Phone Jose Holden MD Primary Care Provider [phone] Reason for Visit Reason Comments QUESTIONS, GENERAL Encounter Details Date Type Department Care Team Description 02/03/2018 Telephone [facility] Pete Gonzalez MD QUESTIONS, GENERAL Neuroscience Center [address] [facility] Neurosurgery/Ortho [address] [place], [place] [address] [address] [place] [address] [phone] Social History Tobacco Use Types Packs/Day Years [...] PA. Chava Simon RN 02/03/2018, 12:01 PM END ANCHOR Gi De La Vega - 02/03/2018 11:55 AM CST Patient calling to speak to Jamir. Would like to know about her surgery. Fisher Lobster did let patient know that Ana Rosa construction scheduler is out of the office. She did request to speak to Jamir. Please call her at listed number. Thanks END ANCHOR documented in this encounter Plan of Treatment Not on filedocumented as of this encounter Visit Diagnoses Not on filedocumented in this encounter Care Teams Silver Spray Worker Relationship Specialty Start Date End Date Jose Holden MD PCP - General Otolaryngology 12/14/[address] [place], [place] [address] [address] documented as of this encounter
--- OUTSIDE RECORDS SUMMARY | 2022-09-09 07:52 | XMS_ITS | Encounter Summary ---
:1965 Author Organization [facility] Address [address] [place] [address] Care Team Providers Name Role Phone Jose Holden MD Primary Care Provider [phone] Encounter Details Date Type Department Care Team [...] filedocumented in this encounter Care Teams Clinical Data Specialist Relationship Specialty Start Date End Date Jose Holden MD PCP - General Otolaryngology 12/14/17 [place] [address] documented as of this encounter
--- OUTSIDE RECORDS SUMMARY | 2022-09-09 07:52 | XMS_ITS | Encounter Summary ---
:1965 Author [facility] Address [address] [place] [address] Care Team Providers Name Role Phone Jose Holden MD Primary Care Provider [phone] Encounter Details Date Type Department Care Team Description 02/07/2018 Prep for Surgery [facility] Sneha Maher, Neuroscience Center Sirisha L, APR N, FIELD AGRONOMIST Neurosurgery/Ortho [address] [place] [address] [place] [address] [phone] Social History Tobacco Use Types Packs/Day Years [...] on filedocumented in this encounter Care Teams Apprentice/Lineman Relationship Specialty Start Date End Date Jose Holden MD PCP - General Otolaryngology 12/14/[address] [place] [address] documented as of this encounter
--- OUTSIDE RECORDS SUMMARY | 2022-09-09 07:52 | XMS_ITS | Encounter Summary ---
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 [address] Phone: Fax: Referral ID Status Reason Start Date Expiration Date Visits Requ ested Visits Authorized [id number] Closed 01/17/2018 04/18/2019 1 1 Scheduling Instructions Your provider has recommended an appoint ment for a pre-operative pain consult with [facility] You may call [phone] to schedule your appointment.?? If you prefer, a mirela billy will contact you within the next 3 business days to assist you in setting u p this appointment. MANAGER Reason for Visit Reason Comments Revisit Encounter Details Date Type Department Care Team Description 01/17/2018 Office Visit [facility], Pseudarthr osis after Neuroscience Center MD fusion or arthrodesis Neurosurgery/Ortho [address] ([address] Dx) [address] [place] [address] [place] [address] [phone] Social History Tobacco Use Types Packs/Day Years [...] Comments Blood Pressure 137/83 01/17/2018 11:[address] MANAGER Pulse 83 01/17/2018 11:[address] MANAGER Temperature 36.5 ??C (97.7 ??F) 01/17/2018 11:[address] MANAGER Respiratory Rate 16 01/17/2018 11:[address] MANAGER Oxygen Saturation - - Inhaled Oxygen Concentration [...] business days) Please call Ana Rosa at [phone] if you have not heard from her. [...] prior to surgery. Please fax preops to [phone] Nothing to eat or drink from midnight [...] and Apply plenty of Hibiclens*, a special glass mould cleaner, to a clean, wet washcloth. Wash [...] 8am-5pm, please call the Neurosurgery Clinic at [phone] if youhave any concerns related to your surgery before going to the Emergency Room, your family physician,or an Urgent Care. After hours call the [facility] at [phone]. PAIN MEDICATION POLICY The Department of Neurosurgery [...] hours. Day of surgery, arrive at [facility] on 3rd floor 2 hours prior to surgery. The Same Day Surgery Nurses will call you 1-3 days prior to surgery to inform you what time you should arrive for your surgery. If they do not reach you, please call if your surgery is at [facility]. Review your surgery packet. Contact the Neurosurgery Center [phone] if you have any questions or concerns MANAGER documented in this encounter Progress Notes Ptee Gonzalez MD - 01/17/2018 11:40 AM CST [...] is prone to typos and grammatical errors. MANAGER documented in this encounter Plan of Treatment Scheduled Referrals Name Type Priority Associated Diagnoses Order S chedule PRE-OP PAIN CONSULT Referral Routine Pseudarthrosis after fusion Ordered: 01/17/2018 - ADULT or arthrodesis documented as of this encounter Procedures Procedure Name Priority Date/Time Associated Diagnosis Comme nts MRSA/MSSA PRE-OP Routine 01/17/2018 1:48 PM Pseudarthrosis aft er Results for this CULTURE CT MANAGER fusion or arthrodesis proced ure are in the results section. 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
--- OUTSIDE RECORDS SUMMARY | 2022-09-09 07:52 | XMS_ITS | Encounter Summary ---
:1965 Author Organization [facility] Address [address], [place] [address] Care Team Providers Name Role Phone Jose Holden MD Primary Care Provider Reason for Visit Reason Comments QUESTIONS, GENERAL Encounter Details Date Type Department Care Team Description 01/25/2018 Telephone [facility] Pete Gonzalez MD QUESTIONS, GENERAL Neuroscience Center [address] [facility] Neurosurgery/Ortho [address] [place], [place] [address] [address] [place] [address] [phone] Social History Tobacco Use Types Packs/Day Years [...] she should receive a call from the personnel scheduler in the next 1-3 weeks to discuss her surgery/date. Patient stated understanding and will call with any updates or changes. Chava Simon RN 01/25/2018, 11:04 AM IRER EVAPORATOR Gi De La Vega 01/25/2018 10:56 AM CST Patient calling to speak to RN. Regarding her MRI scan. IRER EVAPORATOR documented in this encounter Plan of Treatment Not on filedocumented as of this encounter Visit Diagnoses Not on filedocumented in this encounter Care Teams Face Hardener Relationship Specialty Start Date End Date Jose Holden MD PCP - General Otolaryngology 12/14/[address] [place] [address] documented as of this encounter
--- OUTSIDE RECORDS SUMMARY | 2022-09-09 07:52 | XMS_ITS | Encounter Summary ---
:1965 Author Organization [facility] Address [address] [place] [address] Care Team Providers Name Role Phone Unassigned, Provider Primary Care Provider Unavailable Encounter Details Date Type Department Care Team Description 11/04/2005 [facility] Curtis Antoine Op Report-Archive [address] StreetBritton García [place] [address] [facility] [phone] [place] [address] Social History Tobacco Use Types Packs/Day Years Used Date Smoking Tobacco: Never Assessed Sex Assigned at Date Recorded Not on file documented as of this encounter Plan of Treatment Not on filedocumented as of this encounter Visit Diagnoses Not on filedocumented in this encounter Care Teams Staff Nurse Midwife Relationship Specialty Start Date End Date Unassigned, Provider PCP - General 08/05/03 12/13/17 [address] [place] [address] documented as of this encounter
--- OUTSIDE RECORDS SUMMARY | 2022-09-09 07:52 | XMS_ITS | Encounter Summary ---
:1965 Author Organization [facility] Address [address] [address] Care Team Providers Name Role Phone Unassigned, Provider Primary Care Provider Unavailable Reason for Visit Procedure/Equipment (Routine) - Incomplete Specialty Diagnoses / Procedures Referred By Contact Refer red To Contact Diagnoses Screening procedure Pseudarthrosis after fusion or arthrodesis Pete Gonzalez MD Procedures XR Cervical Spine W Flex And Ext [address] [place] [address] Referral ID Status Reason Start Date Expiration Date Visits V isits Requested Authorized [id number] Incomplete 10/31/2017 01/30/2019 1 1 Encounter Details Date Type Department Care Team Description 11/29/2017 Imaging [facility]ineda MD Screening procedure Neuroscience Center [address] [facility] Radiology [place], [place] [address] [address] [place] [address] [phone] Social History Tobacco Use Types Packs/Day Years [...] dure Results for this FLEX AND EXT ANESTHESIA TECH procedure are i n the results section. documented in this encounter Results XR Cervical Spine W Flex And Ext (11/29/2017 9:54 AM ANESTHESIA TECH) Anatomical Region Laterality Modality Spine, C-Spine, Neck Computed Radiograph y Specimen (Source) Anatomical Collection Method Collection Time Re ceived Time Location / / Volume Laterality 11/29/2017 9:54 AM ANESTHESIA TECH Narrative 11/29/2017 10:59 AM ANESTHESIA TECH XR CERVICAL SPINE W FLEX AND EXT [...] condition documented in this encounter Care Teams Construction Engineer Relationship Specialty Start Date End Date Unassigned, Provider PCP - General 08/05/03 12/13/[address] [place] [address] documented as of this encounter
--- OUTSIDE RECORDS SUMMARY | 2022-09-09 07:52 | XMS_ITS | Encounter Summary ---
:1965 Author Organization [facility] Address [address] [place] [address] Care Team Providers Name Role Phone Jose Holden MD Primary Care Provider [phone] Reason for Referral (Routine) - Incomplete Specialty [...] (*), IMAGE GUIDANCE ADD ON SPINE (*) [place] [address] Referral ID Status Reason Start Date Expiration Date Visits V isits Requested Authorized [id number] Incomplete 01/25/2018 04/26/2019 1 1 TOR OPERATOR Encounter Details Date Type Department Care Team Description 01/25/2018 Prep for [facility] Pete Gonzalez, Cervical s pondylosis with radiculopathy (Primary Dx); Surgery Neuroscience Center 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 [address] [place] [address] [phone] Social History Tobacco Use Types Packs/Day Years [...] Cervicalgia documented in this encounter Care Teams Qc Tech Relationship Specialty Start Date End Date Jose Holden MD PCP - General Otolaryngology 12/14/17 [facility] [place] [address] documented as of this encounter
--- OUTSIDE RECORDS SUMMARY | 2022-09-09 07:52 | XMS_ITS | Encounter Summary ---
:1965 Author Organization [facility] Address [address] [place] [address] Care Team Providers Name Role Phone Jose Holden MD Primary Care Provider [phone] Encounter Details Date Type Department Care Team Description 02/07/2018 [facility] Chava Simon RN [place] Neurosurgery/ Ortho Spine [address] [place] [address]. [place] [address] Social History Tobacco Use Types [...] her pre-op is scheduled for 02/13/18 at [facility]. Clinic fax # was given. Patient will have clearance note faxed to clinic. Will post pone message to after the to check and see if pre-op has been received yet. Michael Cruz - 02/08/2018 1:37 PM CDT [facility] Michael Cruz 02/08/2018, 1:37 PM Michael Cruz Porfirio - 02/07/2018 11:27 AM CDT [facility] Michael Monroy Anthony 02/07/2018, 11:27 AM Chava [...] on filedocumented in this encounter Care Teams Pathology Transcriptionist Relationship Specialty Start Date End Date Jose Holden MD PCP - General Otolaryngology 12/14/17 [facility] [place] [address] documented as of this encounter
--- OUTSIDE RECORDS SUMMARY | 2022-09-09 07:52 | XMS_ITS | Encounter Summary ---
:1965 Author Organization [facility] Address [address] [place] [address] Care Team Providers Name Role Phone Unassigned, Provider Primary Care Provider Unavailable Encounter Details Date Type Department Care Team Description 12/13/2006 [facility] Curtis Antoine Op Report-Archive [address] StreetBritton García [place] [address] [facility] [phone] [place] [address] Social History Tobacco Use Types Packs/Day Years Used Date Smoking Tobacco: Never Assessed Sex Assigned at Date Recorded Not on file documented as of this encounter Plan of Treatment Not on filedocumented as of this encounter Visit Diagnoses Not on filedocumented in this encounter Care Teams Religious Activities Director Relationship Specialty Start Date End Date Unassigned, Provider PCP - General 08/05/03 12/13/17 [address] [place] [address] documented as of this encounter
--- OUTSIDE RECORDS SUMMARY | 2022-09-09 07:52 | XMS_ITS | Encounter Summary ---
:1965 [facility] Address [address] [place] [address] Care Team Providers Name Role Phone Jose Holden MD Primary Care Provider [phone] Encounter Details Date Type Department Care Team Description 02/13/2018 Orders Only External to [facility] External, [place] [address] Social History Tobacco Use Types Packs/Day Years [...] filedocumented in this encounter Care Teams Children'S Attendant Relationship Specialty Start Date End Date Jose Holden MD PCP - General Otolaryngology 12/14/17 [place] [address] documented as of this encounter
--- OUTSIDE RECORDS SUMMARY | 2022-09-09 07:52 | XMS_ITS | Encounter Summary ---
:1965 Author Organization [facility] Address [address] [place] [address] Care Team Providers Name Role Phone Jose Holden MD Primary Care Provider [phone] Reason for Visit Procedure/Equipment (Routine) - Incomplete Specialty Diagnoses / Procedures Referred By Contact Refer red To Contact Diagnoses Screening procedure Pseudarthrosis after fusion or arthrodesis Pete Gonzalez MD Procedures FL Video Swallow Study [address] [place] [address] Referral ID Status Reason Start Date Expiration Date Visits V isits Requested Authorized [id number] Incomplete 11/29/2017 02/28/2019 1 1 Encounter Details Date Type Department Care Team Description 12/26/2017 Imaging [facility] Pineda MD Screening procedure; Neuroscience Center [address] [place], [place] [address]E Ps eudarthrosis after fusion or arthrodesis Radiology Fluoro S [address] [place] [address] [place] [address] [phone] (Wo rk) Social History Tobacco Use Types [...] Screening pr ocedure Results for this STUDY ENTRY LEVEL ELECTRICIAN Pseudarthrosis after procedu re are in fusion or the results arthrodesis section. documented in this encounter Results FL Video Swallow Study (12/26/2017 1:03 PM ENTRY LEVEL ELECTRICIAN) Anatomical Region Laterality Modality Neck, Chest Radio Fluoroscopy Specimen (Source) Anatomical Collection Method Collection Time Re ceived Time Location / / Volume Laterality 12/26/2017 1:03 PM ENTRY LEVEL ELECTRICIAN Narrative 12/26/2017 6:00 PM ENTRY LEVEL ELECTRICIAN FL VIDEO SWALLOW STUDY 12/26/2017 1:03 PM [...] sulfate (EZ PAQUE) Given 12/26/2017 1:06 PM ENTRY LEVEL ELECTRICIAN 200 mL suspension 200 mL 200 mL, Oral, ONCE (NON-SCHEDULED), Starting on Tue12/26/17 at 1305, For 1 dose barium sulfate (EZ-DISK) tablet 700 mg Given 12/26/2017 1:06 PM ENTRY LEVEL ELECTRICIAN 700 mg 700 mg, Oral, ONCE (NON-SCHEDULED), Starting on Tue12/26/17 at 1305, Until Tue12/26/17 at 1306, For 1 dose barium sulfate (EZ-PASTE) oral cream 9 g Given 12/26/2017 1:06 PM ENTRY LEVEL ELECTRICIAN 9 g 9 g (15 mL), Oral, ONCE (NON-SCHEDULED), Starting on Tue12/26/17 at 1305, For 1 dose barium sulfate (VARIBAR, TAGITOL V) 40 % Given 12/26/2017 1:06 P M ENTRY LEVEL ELECTRICIAN 240 mL suspension 240 mL 240 mL, Oral, ONCE (NON-SCHEDULED), Starting on Tue12/26/17 at 1305, Until Tue02/20/18 at 1710, For 3 doses documented in this encounter Care Teams Retail Client Solutions Analyst Relationship Specialty Start Date End Date Jose Holden MD PCP - General Otolaryngology 12/14/17 [facility] [place] [address] documented as of this encounter
--- OUTSIDE RECORDS SUMMARY | 2022-09-09 07:52 | XMS_ITS | Encounter Summary ---
:1965 Author Organization [facility] Address [address], [place] [address] Care Team Providers Name Role Phone Jose Holden MD Primary Care Provider [phone] Encounter Details Date Type Department Care Team Description 02/13/2018 Orders Only External to Jose Holden MD [address] [place], [place] [address] (Wo rk) Social History [...] on filedocumented in this encounter Care Teams Wash Box Operator Relationship Specialty Start Date End Date Jose Holden MD PCP - General Otolaryngology 12/14/17 [address] [place] [address] documented as of this encounter
--- OUTSIDE RECORDS SUMMARY | 2022-09-09 07:52 | XMS_ITS | Encounter Summary ---
:1965 Author Organization [facility] Address [address] [place] [address] Care Team Providers Name Role Phone Unassigned, Provider Primary Care Provider Unavailable Encounter Details Date Type Department Care Team Description 10/28/2005 [facility] Curtis Antoine Op Report-Archive [address] StreetBritton García [place] [address] [facility] [phone] [place] [address] Social History Tobacco Use Types Packs/Day Years Used Date Smoking Tobacco: Never Assessed Sex Assigned at Date Recorded Not on file documented as of this encounter Plan of Treatment Not on filedocumented as of this encounter Visit Diagnoses Not on filedocumented in this encounter Care Teams Post Secondary Professional Relationship Specialty Start Date End Date Unassigned, Provider PCP - General 08/05/03 12/13/17 [address] [place] [address] documented as of this encounter
--- OUTSIDE RECORDS SUMMARY | 2022-09-09 07:52 | XMS_ITS | Encounter Summary ---
:1965 Author Organization [facility] Address [address], [place] [address] Care Team Providers Name Role Phone Jose Holden MD Primary Care Provider [phone] Reason for Visit Reason Comments QUESTIONS, GENERAL Encounter Details Date Type Department Care Team Description 01/19/2018 Telephone [facility] Pete Gonzalez MD QUESTIONS, GENERAL Neuroscience Center [address] [facility] Neurosurgery/Ortho [place], [place] [address] [address] [place] [address] [phone] Social History Tobacco Use Types Packs/Day Years [...] of MRI was received via mail from [facility]. CD given to RN AND VIDEO EDITOR Chava Simon RN - 01/19/2018 12:00 PM CST Patient states she will bring the MRI CD hopefully tomorrow 01/20/2018. Chava Simon RN 01/19/2018, 12:01 PM AND VIDEO EDITOR Gi De La Vega - 01/19/2018 11:47 AM CST Patient calling to speak to RN. Would like to speak to him regarding an MRI CD? Please call her at [phone]. AND VIDEO EDITOR documented in this encounter Plan of Treatment Not on filedocumented as of this encounter Visit Diagnoses Not on filedocumented in this encounter Care Teams Dietetic Aide Relationship Specialty Start Date End Date Jose Holden MD PCP - General Otolaryngology 12/14/17 [facility] [place] [address] documented as of this encounter
--- OUTSIDE RECORDS SUMMARY | 2022-09-09 07:52 | XMS_ITS | Encounter Summary ---
:1965 Author Organization [facility] Address [address] [place] [address] Care Team Providers Name Role Phone Jose Holden MD Primary Care Provider [phone] Encounter Details Date Type Department Care Team Description 02/13/2018 Orders Only External to [facility] External, [place] [address] Social History Tobacco Use Types Packs/Day Years [...] filedocumented in this encounter Care Teams Station Engineer Main Line Relationship Specialty Start Date End Date Jose Holden MD PCP - General Otolaryngology 12/14/17 [place] [address] documented as of this encounter
--- OUTSIDE RECORDS SUMMARY | 2022-09-09 07:52 | XMS_ITS | Encounter Summary ---
:1965 Author Organization [facility] Address [address], [place] [address] Care Team Providers Name Role Phone Jose Holden MD Primary Care Provider [phone] Encounter Details Date Type Department Care Team Description 12/02/2017 Orders Only External to Pete Gonzalez MD [address] [place], [place] [address] (Wo rk) Social History Tobacco Use Types [...] 12/02/2017 12:00 AM Resul ts for this FAMILY PRACTICE MEDICAL DOCTOR procedure are i n the results section. documented in this encounter Results MRI SPINE--SCAN (12/02/2017 12:00 AM FAMILY PRACTICE MEDICAL DOCTOR) Anatomical Region Laterality Modality Other Specimen (Source) Anatomical Location Collection Method / Collectio n Time Received Time / Laterality Volume 12/02/2017 Narrative This result has an attachment that is no t available. Pete Gonzalez MD DUMMY/OTHER/AR documented in this encounter Visit Diagnoses Not on filedocumented in this encounter Care Teams Rn Community Relationship Specialty Start Date End Date Jose Holden MD PCP - General Otolaryngology 12/14/17 [address] [place], [place] [id number] documented as of this encounter
--- OUTSIDE RECORDS SUMMARY | 2022-09-09 07:52 | XMS_ITS | Encounter Summary ---
:1965 Author Organization [facility] Address [address] [place] [address] Care Team Providers Name Role Phone Jose Holden MD Primary Care Provider [phone] Encounter Details Date Type Department Care Team Description 01/17/2018 Telephone [facility] Chava Simon RN Center Neurosurgery/ Ortho Spine [address] [facility] [place] [address] Social History Tobacco Use Types [...] in. Chava Simon RN 01/17/2018, 1:26 PM TREATING INSPECTOR documented in this encounter Plan of Treatment Not on filedocumented as of this encounter Visit Diagnoses Not on filedocumented in this encounter Care Teams Assistant Therapy Aide Relationship Specialty Start Date End Date Jose Holden MD PCP - General Otolaryngology 12/14/17 [address] [place] [address] documented as of this encounter
--- OUTSIDE RECORDS SUMMARY | 2022-09-09 07:52 | XMS_ITS | Encounter Summary ---
:1965 Author Organization [facility] Address [address], [place] [address] Care Team Providers Name Role Phone Jose Holden MD Primary Care Provider [phone] Reason for Visit Reason Comments Consult, New Patient vocal cord analysis Consult/Transfer Care (Routine) - Closed Specialty Diagnoses / Procedures Referred By Contact Refer red To Contact Diagnoses Pseudarthrosis after fusion or arthrodesis Screening procedure Pete Gonzalez MD [address] [place] [address] Referral ID Status Reason Start Date Expiration Date Visits Requ ested Visits Authorized [id number] Closed 11/29/2017 02/28/2019 1 1 Encounter Details Date Type Department Care Team Description 12/26/2017 Office Visit Specialty Center Jose Holden Cer vical vertebral 401 Otolaryngology MD Deyvi fusion (Primary Dx) [address] [place] [address] [place], [place] [phone] Social History Tobacco Use Types Packs/Day Years [...] (166 lb 12.8 oz) 12/26/2017 2:06 PM CHILD PSYCHOMETRIST Height - - Body Mass Index 32.58 11/29/2017 10:21 AM CHILD PSYCHOMETRIST documented in this encounter Progress Notes Jose Holden MD - 12/26/2017 3:00 PM CST HPI: Angie Mosquera is a 52 y.o. old female who presents for vocal cord evaluation prior to cervical spine surgery. Patient has significant history of cervical spine surgery having approximate four procedures, three in [place] one here in the [place] area last year. After her last surgery, developed significant hoarseness, loss of voice for approximately three months. Cervical approach with her last surgery was left-hand side. States that she was evaluated by a whip sawyer and there were plans for a procedure [...] times per day. 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 Not currently working. [...] and may contain unintended word substitutions. D PSYCHOMETRIST documented in this encounter Plan of Treatment Not on filedocumented as of this encounter Visit Diagnoses Diagnosis Cervical vertebral fusion - Primary Klippel-Feil syndrome documented in this encounter Care Teams Licensing Specialist Relationship Specialty Start Date End Date Jose Holden MD PCP - General Otolaryngology 12/14/[address] [facility] [address] documented as of this encounter
--- OUTSIDE RECORDS SUMMARY | 2022-09-09 07:52 | XMS_ITS | Encounter Summary ---
:1965 Author Organization [facility] Address [address] [place] [address] Care Team Providers Name Role Phone Unassigned, Provider Primary Care Provider Unavailable Encounter Details Date Type Department Care Team Description 01/17/2006 [facility] Curtis Antoine Op Report-Archive [address] StreetBritton García [place] [address] [phone] [place] [address] Social History Tobacco Use Types Packs/Day Years Used Date Smoking Tobacco: Never Assessed Sex Assigned at Date Recorded Not on file documented as of this encounter Plan of Treatment Not on filedocumented as of this encounter Visit Diagnoses Not on filedocumented in this encounter Care Teams Director Metabolism Relationship Specialty Start Date End Date Unassigned, Provider PCP - General 08/05/03 12/13/17 [address] [place] [address] documented as of this encounter
--- OUTSIDE RECORDS SUMMARY | 2022-09-09 07:52 | XMS_ITS | Encounter Summary ---
:1965 Author Organization [facility] Address [address] [place] [address] Care Team Providers Name Role Phone Jose Holden MD Primary Care Provider [phone] Reason for Visit Reason Comments Other Encounter Details Date Type Department Care Team Description 01/17/2018 [facility]phone [facility] Chava Simon RN Other Center Neurosurgery/ Ortho Spine [address] [place] [address]. [place] [address] Social History Tobacco Use Types [...] AM CST XR printed for patient to turkey picker when she comes to clinic. Chava Simon RN 01/18/2018, 8:42 AM F TECHNOLOGY OFFICER Michael Cruz - 01/17/2018 3:46 PM CST Patient called in stating she will drop off her CD in clinic tomorrow. However she wants to make sure RADHA Bowie also has a copy of her neck pictures ready for her as well. Patient states she had alreadyspoken to RADHA Bowie about this. Please advise Michael Cruz 01/17/2018, 3:47 PM F TECHNOLOGY OFFICER documented in this encounter Plan of Treatment Not on filedocumented as of this encounter Visit Diagnoses Not on filedocumented in this encounter Care Teams Publicity Agent Relationship Specialty Start Date End Date Jose Holden MD PCP - General Otolaryngology 12/14/[address] [facility] [place] [address] documented as of this encounter
--- OUTSIDE RECORDS SUMMARY | 2022-09-09 07:52 | XMS_ITS | Encounter Summary ---
:1965 Author Organization [facility] Address [address], [place] [address] Care Team Providers Name Role Phone Unassigned, Provider Primary Care Provider Unavailable Reason for Referral Procedure/Equipment (Routine) - Incomplete Specialty Diagnoses / Procedures Referred By Contact Refer red To Contact Diagnoses Screening procedure Pseudarthrosis after fusion or arthrodesis Pete Gonzalez MD Procedures FL Video Swallow Study [address] [place] [address] Referral ID Status Reason Start Date Expiration Date Visits V isits Requested Authorized [id number] Incomplete 11/29/2017 02/28/2019 1 1 herapies (Routine) - Closed Specialty Diagnoses / Procedures Referred By Contact Refer herson To Contact Diagnoses Pseudarthrosis after fusion or arthrodesis Screening procedure Pete Gonzalez MD [address] [place] [address] Referral ID Status Reason Start Date Expiration Date Visits Requ ested Visits Authorized [id number] Closed 11/29/2017 01/28/2018 1 1 Scheduling Instructions Your provider has recommended an appoint ment with a [facility] Speech [facility]rap[facility]. Please stop at the clinic check out desk for as sistance with scheduling or if you prefer to call for your appointment you may call [facility] at [phone]. We suggest you call your [facility] insurance company about your coverage and benefits for this appointment. RVISOR SOUND TECHNICIAN Consult/Transfer Care (Routine) - Closed Specialty Diagnoses / Procedures Referred By Contact Refer red To Contact Diagnoses Pseudarthrosis after fusion or arthrodesis Screening procedure Pete Gonzalez MD [address] [place] [address] Referral ID Status Reason Start Date Expiration Date Visits Requ ested Visits Authorized [id number] Closed 11/29/2017 02/28/2019 1 1 Scheduling Instructions Your provider has recommended an appoint ment with [facility]. You may call [phone], optio n [phone], to schedule your appointment. If you prefer, a manufacturing scheduler will contact you heena hebert the next 3 business days to assist you in setting up this appointment. We suggest you call your health insurance company about your coverage and benefits for this appo intment. RVISOR SOUND TECHNICIAN Procedure/Equipment (Routine) - Incomplete Specialty Diagnoses / Procedures Referred By Contact Refer red To Contact Diagnoses Screening procedure Pseudarthrosis after fusion or arthrodesis Pete Gonzalez MD Procedures XR Cervical Spine W Flex And Ext [address] [place] [address] Referral ID Status Reason Start Date Expiration Date Visits V isits Requested Authorized [id number] Incomplete 10/31/2017 01/30/2019 1 1 RVISOR SOUND TECHNICIAN Reason for Visit Reason Comments SECOND OPINION Consult/Transfer Care (Routine) - Closed Specialty Diagnoses / Procedures Referred By Contact Refer red To Contact Neurosurgery Ihsan Brooke MD [facility] Neurosurgery/Ortho [address] [place] [address] [place] [address]. [place] [address] Phone: Fax: Referral ID Status Reason Start Date Expiration Date Visits Requ ested Visits Authorized [id number] Closed 09/26/2017 12/26/2018 1 1 Encounter Details Date Type Department Care Team Description 11/29/2017 Office Visit [facility] Pete Gonzalez, Pseudarthr osis after fusion or arthrodesis (Primary Dx); Neuroscience Center Cervical spondylosis with radiculopathy; Neurosurgery/Ortho [address] [place] Bil[address] al occipital neuralgia; Spine [address] Screening procedure [address] [place] [address] [place] [address] [phone] Social History Tobacco Use Types Packs/Day Years Used Date Smoking Tobacco: Every Day Cigarettes 0.5 Smokeless Tobacco: Never Alcohol Use Standard Drinks/Week Comments No 0 (1 standard drink = 0.6 oz pure alcoho l) Sex Assigned at Date Recorded Not on file documented as of this encounter Last Filed Vital Signs Vital Sign Reading Time Taken Comments Blood Pressure 126/77 11/29/2017 10:21 AM SUPERVISOR SOUND TECHNICIAN Pulse 77 11/29/2017 10:21 AM SUPERVISOR SOUND TECHNICIAN Temperature - - Respiratory Rate - - Oxygen Saturation - - Inhaled Oxygen Concentration - - Weight 75.4 kg (166 lb 3.2 oz) 11/29/2017 10:21 AM SUPERVISOR SOUND TECHNICIAN Height 152.4 cm (5') 11/29/2017 10:21 AM SUPERVISOR SOUND TECHNICIAN Body Mass Index 32.46 11/29/2017 10:21 AM SUPERVISOR SOUND TECHNICIAN documented in this encounter Patient Instructions Patient [...] your understanding. Please call the Neurosurgery Center [phone] with any further questions or concerns or if your symptoms worsen. Thank you for coming to see us today. We are your partner. RVISOR SOUND TECHNICIAN documented in this encounter Progress Notes Lois [...] after C3-T1 posterior cervical fusion done at [facility] in [place] multiple years ago. The T1 screws are [...] on fentanyl, ms contin and oxycontin in [place]. PSURGHX:No past surgical history on file. PMEDHX:No past medical history on file. MEDICATIONS: Outpatient Prescriptions as of 11/29/2017: benzonatate (TESSALON) 100 MG capsule Take 100 mg by mouth. Note (11/29/2017): Received from: [facility] Received Sig: Take 1 capsule by mouth 3 times daily if needed for Cough. Disp: Rfl: budesonide-formoterol (SYMBICORT) 160-4.5 MCG/ACT inhaler Inhale 2 Puffs. Note (11/29/2017): Received from: [facility] Received Sig: INHALE 2 PUFFS BY [...] Tab by mouth. Note (11/29/2017): Received from: [facility] Received Sig: Take 1 tablet bymouth [...] on file ROS: Reviewed per [facility] Neurosurgery New Patient Health Packet History was [...] 4/5 C7 Triceps: 5/5 4/5 C8 Finger flexors/patient transporter: 5/5 5/5 T1 Intrinsics: 5/5 5/5 Sensation: Intact with light touch bue/ble. Skin: Warm to touch to bilateral upper/lower extremities. No skin rashes or lesions noted RADIOLOGY: Personally reviewed CT scans from OSH as well as XR from here. No formal report for either available. Shows previous C3-T1 posterior fusion, appears fused C3-C6, screws at T1 appear lose. [id number] through the facet joint. ASSESSMENT: 52 year old female s/p multiple previous cervical spine surgeries including C3-T1 posterior fusion (done in [place] approx 6 years ago), with C6-T1 pseudoarthrosis, [...] of the chart to: Ihsan Brooke MD [address] [id number] Lois Pham PA-C, 11/29/2017, 12:34 PM RVISOR SOUND TECHNICIAN documented in this encounter Plan of Treatment Scheduled Referrals Name Type Priority Associated Diagnoses Order S chedule Otolaryngology Consult Referral Routine Pseudarthrosis aft er Ordered: Adult/Peds fusion or arthro desis 11/29/2017 Screening procedure Speech Therapy Referral Routine Pseudarthrosis after Order ed: fusion or arthro desis 11/29/2017 Screening procedure documented as of this encounter Results FL Video Swallow Study (12/26/2017 1:03 PM SUPERVISOR SOUND TECHNICIAN) Anatomical Region Laterality Modality Neck, Chest Radio Fluoroscopy Specimen (Source) Anatomical Collection Method Collection Time Re ceived Time Location / / Volume Laterality 12/26/2017 1:03 PM SUPERVISOR SOUND TECHNICIAN Narrative 12/26/2017 6:00 PM SUPERVISOR SOUND TECHNICIAN [place] VIDEO SWALLOW STUDY 12/26/2017 1:03 PM INDICATION: [...] note might be different from the original. [place] VIDEO SWALLOW STUDY 12/26/2017 1:03 PM INDICATION: [...] W Flex And Ext (11/29/2017 9:54 AM SUPERVISOR SOUND TECHNICIAN) Anatomical Region Laterality Modality Spine, C-Spine, Neck Computed Radiograph y Specimen (Source) Anatomical Collection Method Collection Time Re ceived Time Location / / Volume Laterality 11/29/2017 9:54 AM SUPERVISOR SOUND TECHNICIAN Narrative 11/29/2017 10:59 AM SUPERVISOR SOUND TECHNICIAN XR CERVICAL SPINE W FLEX AND EXT [...] status documented in this encounter Care Teams Detailer School Photographs Relationship Specialty Start Date End Date Unassigned, Provider PCP - General 08/05/03 12/13/[address] [place] [address] documented as of this encounter
--- OUTSIDE RECORDS SUMMARY | 2022-09-09 07:52 | XMS_ITS | Encounter Summary ---
:1965 [facility] Address [address], [place] [address] Care Team Providers Name Role Phone Jose Holden MD Primary Care Provider [phone] Reason for Visit Therapies (Routine) - Closed Specialty Diagnoses / Procedures Referred By Contact Refer red To Contact Diagnoses Pseudarthrosis after fusion or arthrodesis Screening procedure Pete Gonzalez MD [address] [place] [address] Referral ID Status Reason Start Date Expiration Date Visits Requ ested Visits Authorized [id number] Closed 11/29/2017 01/28/2018 1 1 Encounter Details Date Type Department Care Team Description 12/26/2017 Office Visit Pete Orona MD [address] [place] [address] Pharyngeal dysphagia Neuroscience Center Kaykay Wyman PAPER CUP MACHINE OPERATOR [address] [place], [place] [id number] (Primary Dx) Speech Therapy [address] [place] [address]. [id number] [id number] Social History Tobacco Use Types Packs/Day Years Used Date Smoking Tobacco: Every Day Cigarettes 0.5 Smokeless Tobacco: Never Alcohol Use Standard Drinks/Week Comments No 0 (1 standard drink = 0.6 oz pure alcoho l) Sex Assigned at Date Recorded Not on file documented as of this encounter Patient Instructions Patient InstructionsKaykay Wyman SLP - 12/26/2017 12:30 PM KITCHEN HAND You had a swallow test today. I [...] sensation of food catching. Kaykay Monroy MA CCC/PAPER CUP MACHINE OPERATOR Speech-Language Pathologist M-F Office: [phone] HEN HAND documented in this encounter Progress Notes Kaykay Wyman, PAPER CUP MACHINE OPERATOR - 12/26/2017 12:30 PM CST SPEECH LANGUAGE PATHOLOGY MODIFIED BARIUM SWALLOW INITIAL EVALUATION ASSESSMENT Patient is referred for dysphagia evaluation as part of surgical consultation related to past ACDF 1year ago in [place] with consideration of revision ACDF surgery in [...] food sticking, especially on textures that are chip drier (meats, breads, etc). I would anticipate [...] goals established as no further intervention from PAPER CUP MACHINE OPERATOR service is warranted at this time. VISIT [...] Total Treatment Time: 45 minutes Kaykay Monroy CCC-PAPER CUP MACHINE OPERATOR 12/26/2017 documented in this encounter Plan of Treatment Scheduled Referrals Name Type Priority Associated Diagnoses Order S chedule Speech Therapy Referral Routine Pseudarthrosis after fusio n or Ordered: 11/29/2017 arthrodesis Screening procedure documented as of this encounter Visit Diagnoses Diagnosis Pharyngeal dysphagia - Primary Dysphagia, pharyngeal phase documented in this encounter Care Teams Control Clerk Relationship Specialty Start Date End Date Jose Holden MD PCP - General Otolaryngology 12/14/17 [place] [address] documented as of this encounter
--- OUTSIDE RECORDS SUMMARY | 2022-09-09 07:52 | XMS_ITS | Encounter Summary ---
:1965 Author Organization [facility] Address [address], [place] [address] Care Team Providers Name Role Phone Jose Holden MD Primary Care Provider Encounter Details Date Type Department Care Team Description 12/02/2017 Orders Only External to Pete Gonzalez MD [address] [place], [place] [address] (Wo rk) Social History Tobacco Use Types [...] 12/02/2017 12:00 AM Resul ts for this CAR RENTAL CLERK procedure are i n the results section. documented in this encounter Results MRI SPINE--SCAN (12/02/2017 12:00 AM CAR RENTAL CLERK) Anatomical Region Laterality Modality Other Specimen (Source) Anatomical Location Collection Method / Collectio n Time Received Time / Laterality Volume 12/02/2017 Narrative This result has an attachment that is no t available. Pete Gonzalez MD DUMMY/OTHER/AR documented in this encounter Visit Diagnoses Not on filedocumented in this encounter Care Teams Director Of Vocational Training Relationship Specialty Start Date End Date Jose Holden MD PCP - General Otolaryngology 12/14/17 [address] [place], [place] [id number] documented as of this encounter
--- OUTSIDE RECORDS SUMMARY | 2022-09-09 07:52 | XMS_ITS | Encounter Summary ---
:1965 Author Organization [facility] Address [address], [place] [address] Care Team Providers Name Role Phone Jose Holden MD Primary Care Provider [phone] Encounter Details Date Type Department Care Team Description 12/02/2017 Orders Only External to Pete Gonzalez MD [address] [place], [place] [address] (Wo rk) Social History Tobacco Use Types [...] 12/02/2017 12:00 AM Resul ts for this ADMINISTRATIVE ASST procedure are i n the results section. documented in this encounter Results MRI SPINE--SCAN (12/02/2017 12:00 AM ADMINISTRATIVE ASST) Anatomical Region Laterality Modality Other Specimen (Source) Anatomical Location Collection Method / Collectio n Time Received Time / Laterality Volume 12/02/2017 Narrative This result has an attachment that is no t available. Pete Gonzalez MD DUMMY/OTHER/AR documented in this encounter Visit Diagnoses Not on filedocumented in this encounter Care Teams Exhibits Curator Relationship Specialty Start Date End Date Jose Holden MD PCP - General Otolaryngology 12/14/17 [address] [place], [place] [id number] documented as of this encounter
--- OUTSIDE RECORDS SUMMARY | 2022-09-09 07:52 | XMS_ITS | Encounter Summary ---
:1965 Author Organization [facility] Address [address] [place] [address] Care Team Providers Name Role Phone Jose Holden MD Primary Care Provider [phone] Reason for Visit Reason Comments CONSULT POPC-dos 02-20 w/Dr Gonzalez Encounter Details Date Type Department Care Team Description 02/13/2018 Office Visit [facility] Raul Stover MD cervical region Management [address] without myelopathy or [address] [place], [place] radiculopathy ([place] [address] Dx) [phone] Social History Tobacco Use Types Packs/Day Years [...] some medicines that are opioids: ??? Hydrocodone (Shelley, Vicodin, Lortab) ??? Oxycodone (OxyContin, Percocet) ??? [...] before you use any other medicines, including otak-yjw-bpuumbc medicines. Make sure my care team knows [...] team or apharmacist. You can also visit [employer] or [employer] and search medicine disposalto learn about drug disposal. You may also call the Drug Enforcement Administration (BARBY) Office of Diversion Control's Registration Call Center at to find an authorized email marketing executive in your community. ??? If your [...] Content Version: 10.9 Custom: HP/PN 6-16 ?? [id number] mylearnadfriend, [facility]. Stew Covarrubias MD documented in this encounter [...] experiences A lot of 'bad' surgeries in [place] Past Medical History: Diagnosis Date ??? Acne ??? Allergy ??? Anxiety disorder (HRC) ??? Arthritis ??? Asthma (HRC) ??? Bipolar 1 disorder (HRC) ??? COPD (chronic obstructive pulmonary disease) (HRC) ??? Depression (HRC) ??? Ear infection ??? Infection of the inner ear, left ? ? Nausea & vomiting ??? Sinusitis No past surgical history on file. MARKETING PROGRAMS SPECIALIST Review: Allergies: Allergies Allergen Reactions ??? Adhesive [...] surgery Recommendations for opioids: If using a RAND SEWER: No oral opioids Start a RAND SEWER pump with Dilaudid continuous IV infusion at a basal rate of 0.1 mg/hr with RAND SEWER boluses of 0.2-0.4 mg every 10 minutes. If not using a RAND SEWER: Start dilaudid 2-4mg q3h prn (alternatively can [...] myelopathy documented in this encounter Care Teams Clinical Trials Assistant Relationship Specialty Start Date End Date Jose Holden MD PCP - General Otolaryngology 12/14/17 [facility] [place] [address] documented as of this encounter
--- OUTSIDE RECORDS SUMMARY | 2022-09-09 07:53 | XMS_ITS | Encounter Summary ---
:1965 Author Organization [facility] Address [address] [place] [address] Care Team Providers Name Role Phone Elsewhere, Pcp Primary Care Provider Unavailable Reason for Visit Reason Comments Pregabalin prescription Encounter Details Date Type Department Care Team Description 06/22/2022 Clinical Communication RST ANDREW Pollard, Pregabalin [address] [facility] Lilian Hughes prescription [place], [place] [address] [facility] [address] [place] [address] Social History Tobacco Use Types Packs/Day Years [...] you attend alevism or Patient refused 2021 episcopal services? Do [...] Maritza Carrillo - 06/22/2022 12:18 PM CDT [facility] called. The patient had a prescription for Pregabalin sent to one of the [place] pharmacies on 06/17/22 and she never picked it up. [facility] would like the prescription sent to them since they provide the prescriptions to the patient. Please phone or send a new prescription for Pregabalin 300 mg to [facility] in [place]. Please do as soon as able, the patient is out of this medication. Thank you, Maritza [phone] documented in this encounter Plan of Treatment Not on filedocumented as of this encounter Visit Diagnoses Not on filedocumented in this encounter Additional Health Concerns Assessment Noted Time PHQ-9 Depression Total Score: 16 02/11/2021 12:00 AM C DT documented as of this encounter Care Teams Miller Head Relationship Specialty Start Date End Date Elsewhere, Pcp PCP - General Family Medicine 12/25/21 documented as of this encounter
--- OUTSIDE RECORDS SUMMARY | 2022-09-09 07:53 | XMS_ITS | Encounter Summary ---
:1965 Author Organization [facility] Address [address] [place] [address] Care Team Providers Name Role Phone Elsewhere, Pcp Primary Care Provider Unavailable Reason for Visit Reason Comments Pre-visit Intake Encounter Details Date Type Department Care Team Description 06/25/2022 Clinical Communication Visit Review in Pr e-visit Intake [place], [place] [address] [place], [place] [id number] Social History Tobacco Use Types Packs/Day Years [...] as of this encounter Care Teams Material Distributor Relationship Specialty Start Date End Date Elsewhere, Pcp PCP - General Family Medicine 12/25/21 documented as of this encounter
--- OUTSIDE RECORDS SUMMARY | 2022-09-09 07:53 | XMS_ITS | Encounter Summary ---
:1965 Author Organization [facility] [place] [facility] Address [address] [place] [address] Care Team Providers Name Role Phone Elsewhere, Pcp Primary Care Provider Unavailable Reason for Visit Reason Onset Date Comments Left Without Being Seen 07/22/2022 Physical Therapy (Routine) - Authorized Specialty Diagnoses / Procedures Referred By Contact Refer red To Contact Diagnoses Aftercare Total Shoulder Arthroplasty Flavia Broderick M.D. [facility] Procedures PT or OT eval and treat (first available) Referral ID Status Reason Start Date Expiration Date Visits V isits Requested Authorized [id number] Authorized 06/23/2022 06/23/2023 99 99 Encounter Details Date Type Department Care Team Description 06/29/2022 Comprehensive Visit Department of Physical Juaquin Broderick M.D. Procedure And Treatment Not Carried Out Due To Patient Leaving Prior To Being Seen By Health Care Provider (Primary Dx); Medicine and Jessie Faye M.S., O.T. [address] [place] [phone] Aftercare Total Shoulder Arthroplasty Rehabilitation in [place], [place] [address] [place] [address] Social History Tobacco Use Types Packs/Day Years [...] you attend mosque or Patient refused 2021 mandaen services? Do you belong to any clubs or No 05/17/2022 organizations such as mosque groups, unions, frasetObject or athletic groups, or school groups? How [...] X-ray and Dr. Polk. Patient arrived at [place] [address] des and was rescheduled. documented in this [...] of this encounter Care Teams Life Insurance Salesperson Relationship Specialty Start Date End Date Elsewhere, Pcp PCP - General Family Medicine 12/25/21 documented as of this encounter
--- OUTSIDE RECORDS SUMMARY | 2022-09-09 07:53 | XMS_ITS | Encounter Summary ---
:1965 Author Organization [facility] Address [address] [place] [address] Care Team Providers Name Role Phone Elsewhere, Pcp Primary Care Provider Unavailable Reason for Visit Reason Comments Pre-visit Intake Encounter Details Date Type Department Care Team Description 09/01/2022 Clinical Communication Visit Review in Pr e-visit Intake [place], [place] [address] [place], [place] [address] Social History Tobacco Use Types Packs/Day Years [...] documented as of this encounter Care Teams Green End Worker Relationship Specialty Start Date End Date Elsewhere, Pcp PCP - General Family Medicine 12/25/21 documented as of this encounter
--- OUTSIDE RECORDS SUMMARY | 2022-09-09 07:53 | XMS_ITS | Encounter Summary ---
:1965 Author Organization [facility] Address [address] [place] [address] Care Team Providers Name Role Phone Elsewhere, Pcp Primary Care Provider Unavailable Encounter Details Date Type Department Care Team Description 09/06/2022 Clinical Communication Department of [facility] Orthopedic Surgery in Lilian Souza [place], [place] [address] [place] [address] 200 [place] [phone] Social History Tobacco Use Types Packs/Day Years [...] you attend mosque or Patient refused 2021 methodist services? Do [...] encounter Miscellaneous Notes Telephone Encounter - Maritza Persaud - 09/06/2022 8:43 AM CDT Pt would like someone to contact them. They would like to explain what they need and why they are not able to follow-up with the doctor. Thank you. documented in this encounter Plan of Treatment Not on filedocumented as of this encounter Visit Diagnoses Not on filedocumented in this encounter Additional Health Concerns Assessment Noted Time PHQ-9 Depression Total Score: 16 02/11/2021 12:00 AM C DT documented as of this encounter Care Teams Cook Room Supervisor Relationship Specialty Start Date End Date Elsewhere, Pcp PCP - General Family Medicine 12/25/21 documented as of this encounter
--- OUTSIDE RECORDS SUMMARY | 2022-09-09 07:53 | XMS_ITS | Encounter Summary ---
:1965 Author Organization [facility] Address [address] [place] [address] Care Team Providers Name Role Phone Elsewhere, Pcp Primary Care Provider Unavailable Reason for Visit Appointment Request (Routine) - Closed Specialty Diagnoses / Procedures Referred By Contact Refer red To Contact Orthopedic Surgery Diagnoses Aftercare Total Shoulder Arthroplasty Referral ID Status Reason Start Date Expiration Date Visits Requ ested Visits Authorized [id number] Closed 06/23/2022 06/23/2023 1 1 Encounter Details Date Type Department Care Team Description 06/29/2022 Office Visit Department of Cyrus Polk Left Orthopedic Surgery in [place] (Primary Dx) [place], [place] [address] [place] [address] 200 [place] [phone] Social History Tobacco Use Types Packs/Day Years [...] you attend restoration or Patient refused 2021 caodaism services? Do [...] to follow up through the [facility], Department of Orthopedic Surgery Total Joint Registry. [...] as of this encounter Care Teams Case Liner Relationship Specialty Start Date End Date Elsewhere, Pcp PCP - General Family Medicine 12/25/21 documented as of this encounter
--- OUTSIDE RECORDS SUMMARY | 2022-09-09 07:53 | XMS_ITS | Clinical Summary ---
:[address] [facility] Address [address] [place] [address] Care Team Providers Name Role Phone Elsewhere, Pcp Primary Care Provider Unavailable Source Comments Patient records contain information from all sites at [facility]. For routine questions regarding patient records, call [phone] during business hours, M-F 8:00 AM - 5:00 PM Central Time. Record requests for emergency care only can be directed to [phone] at any time.[facility] Allergies Active Allergy Reactions Severity Noted [...] 10/13/2017 Other lashaun ction(s): (see comments) Contact [place] titis Gabapentin Other (see comments) Low 05/12/2017 Dropped things Feels weird Milk Containing GI intolerance High 08/23/2022 Products Nortriptyline Palpitations Low 05/12/2017 And heart raci [...] Dermati tis, Other (see comm ents) Blisteres Soy Rash 07/31/2010 Patient states only slight allergy Sulfamethoxazole-Trimet Nausea Only, GI Low 10/13/2017 S [...] (ANTIVERT) Take 25 mg by mouth 0 1 Active 25 mg tablet every 6 (six) [...] mg oral Daily, Other, Reported on 06/21/2022 ooopenapoz-yildjcgzebsof-vzny Take 1 tablet by 0 12/2020 Active [...] by 0 01/28 Active mouth at bedtime. multivit-min/iron/folic/fcs035 Take 1 tablet by 0 Active (HAIR, SKIN AND NAILS ADVANCED mouth daily. ORAL) sennosides-docusate sodium Take 1 tablet by 0 2021 Active (SENOKOT-S) 8.6-50 mg per tablet mouth 2 (two) times a day. aspirin 325 mg tablet Take 1 tablet 0 02/27/2022 Active (325 mg total) by mouth every evening. naloxone (NARCAN) 4 mg/actuation Administer 1 0 2 07/2022 Active nasal spray spray into one [...] Added automatically from request for lonnie li [id number] Nicotine Dependence Unspecified 11/29/2017 Other Elastic Attacher Zigzag Current Drug Therapy 12/30/2016 Opioid Moderate Or Severe Use Disorder (Dependence) Un complicated 08/27/2016 Bipolar II Disorder 09/27/2007 Transient Ischemic Attack Encounters Date Type Specialty Care Team Description 09/06/2022 Documentation Orthopedic Surgery Cyrus Polk M.D. 09/06/2022 Clinical Neurology Robert Diehl Walking tony alyssa Celaya M.D. device ([facility] Neurosurgery ) 09/06/2022 Clinical Orthopedic Surgery Cyrus Polk M.D. 09/01/2022 Clinical Admitting/Central Pre-visit Intake Communication Scheduling 08/09/2022 Clinical Orthopedic Surgery Cyrus Polk Return Visit Veronica Souza M.D. 07/19/2022 Refill Community Internal Hoda Benito Med Re fill Medicine Lilian 06/29/2022 Comprehensive Visit Physical [...] Communication Lilian Souza 06/22/2022 Clinical Acute Care [place], Pregabalin Communication Lilian Hughes prescription 06/21/2022 Clinical Acute Care [place], Medication Ques tion Communication Lilian Hughes 06/17/2022 Anesthesia Event Radiology Sapphire Verma, DRYER OPERATOR, CLINICAL BIOSTATISTICS DIRECTOR, DNAP Brian Hunt M.D. 06/17/2022 Orders Only [...] (ICD-10-CM)] 06/15/2022 Clinical Neurology Robert Diehl Followup ([facility] Veronica Celaya M.D. Patient/) 06/10/2022 Clinical Orthopedic Surgery Cyrus Polk xray re sharon Souza M.D. from Last 3 Months Immunizations Name [...] you attend judaism or Patient refused 2021 buddhism services? Do [...] Cessation counseling 1965 COVID-19 Vaccine (#1) 1965 Hepatitis A Vaccines (1 of 2 - 1966 Risk 2-dose series) Depression Screening (Annual 11/28/2021 PHQ-2) Influenza Vaccine [...] 09/11/2021, 09/13/2020 Medical Devices Implanted Type Area Lead Sewage Plant Operator Device Shelf Model / Identifier Expiration Serial / Date Lot Cmnt Bn Smp 20gm - [id number] Bone Cement Left: Nato [id number] / Implanted: Qty: 1 on 12/30/2021 by Cyrus Panchal M.D. at [facility] Shoulder / Grft Dbm Grf Obl Ld 15 - [id number] - [id number] Bone or Tis lebron Left: Medtronic 10/14/2023 [id number] / Implanted: Qty: 1 on 02/26/2022 at [facility] Shoulder [id number] / 4mm Amplatz Micro Plug Embolization Brain Amplatzer [id number] / Implanted: Qty: 1 on 02/16/2021 by Mustapha Posey M.D. at [facility] Coil Plant Breeder / Dayo [id number] Description: MRI Conditional at 1.5T or 3T Max Whole Body YUSEF of 4 W/kg. AAC 2020 [email or web address]/products/ Hardware E.G. Hardware e.g. Neck Pins/Screws/Rods pins/screws/rods Scrw Cmp Pthrd 6.5x25 - [id number] Hardware e.g. Left: Trevor B iomet 12/29 [id number] / Implanted: Qty: 1 on 02/26/2022 at [facility] pins/screws/rods Shoulder 05/17 [id number] Knee Implant Knee Implant Bilateral: Knee Plg Ocl Amp Avpii 6 - [id number] Mesh or Patch Pedersen 07/31 [id number] / Implanted: Qty: 1 on 02/16/2021 by Mustapha Posey M.D. at [facility] [id number] Shoulder Implant Shoulder Implant Left: Shoulder Bsplt Glnd Cmp Rv Aug Sm - [id number] Shoulder Implant Left: Trevor Biomet 01/26 [id number] / Implanted: Qty: 1 on 02/26/2022 at [facility] Shoulder [id number] [facility] Cmp Rvrs Prim Mini 9 - [id number] Shoulder Implant Le ft: Trevor Biomet 08/28 [id number] / Implanted: Qty: 1 on 05/18/2022 by Cyrus Panchal M.D. at [facility] Shoulder 02/14 [id number] Medtronic Spinal Cord Stimulator Spinal Cord Back Medtronic [id number] / Implanted: 06/30/2020 (Quantity not on file) Stimulator [id number] / [id number] Description: Medtronic FriendsEATlis Spinal Cord Stimulator model #25412. As of 06/17/22, the stimulator IPG is [...] with the patient during future MRI appointments. [facility] 06/17/22 PT got new spinal cord stimulator bailey d . Patient states she fell and the old stimulator broke, so she had the new Medtronic device put in. 1.5T Normal/ Normal, patient has to have a remote and device needs to be put in MRI Mode prior to MRI as of 03-19-21 SDN Explanted Type Area Lead Sewage Plant Operator Device Shelf Model / Identifier Expiration Serial / Date Lot Hum Hd Vrs Dl [id number] - [id number] Shoulder Left: Trevor Biom et 05/29/2031 [id number] / Implanted: Qty: 1 on 12/30/2021 by Cyrus Panchal M.D. at [facility] Implant Shoulder / Explanted: Qty: 1 on 02/26/2022 at [facility] [id number] Hum Stm Cmp Rvrs Prim Std 10 - [id number] Shoulder Left: Zi mmer Biomet 12/16/2029 [id number] / Implanted: Qty: 1 on 02/26/2022 at [facility] Implant Shoulder / Explanted: Qty: 1 on 05/18/2022 at [facility] [id number] Spinal Cord Stimulator Spinal Cord Pelvis Nevro Explanted: 03/10/2020 (Quantity not on file) Stimulator Description: Device was explanted on 02-26 per Nevro Support. SDN 03-19-21 Procedures Procedure Name Priority Date/Time Associated [...] this procedure are in the results section. from [...] of3 resultswithin the time period is included. [facility] gist Method Time Signature Hemoglobin 11.2 [...] 06/18/20 8:13 Venous) CDT AM CDT Maira Hayens M.D. LAB BLOOD ADD-ON Performing Organization Address City/State/ZIP Code Phon e Number [facility] - [address] [place], [place] [address] [facility] [place] [address] Laboratories-[facility] [address] [facility] Basic Metabolic Panel (06/18/2022 7:50 AM CDT)Only the most recent of3 results within [...] 06/18/2022 DTL Black/ mL/min/BSA 8:56 AM CDT [place] Island[place] Comment: ----ADDITIONAL INFORMATION---- [...] [facility] - [address] [place], [place] [address] [place] [address] Formerly [facility] [address] MR Lumbar [...] 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 The [place] intraocular lenses are absent . 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 The [place] intraocular lenses are absent . 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 The [place] intraocular lenses are absent . 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 The [place] intraocular lenses are absent . 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 The [place] intraocular lenses are absent . 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 The [place] intraocular lenses are absent . Mild mucosal [...] ETT location: oral VL device: glide scope Sparkill scope blade size: 3 Adult tube size: [...] ?? Airway event: no complications Sapphire Verma DRYER OPERATOR, CLINICAL BIOSTATISTICS DIRECTOR, DNAP ANESTHESIA ORDERABLES Osmolality, Urine (06/16/2022 9:32 [...] Number [facility] - [address] [place] [phone] [facility] [place] [address] [facility] 200 [facility] (ABNORMAL) Dipstick, Urine (06/16/2022 9:32 AM [...] M.D. LAB URINE ORDERABLES Performing Organization Address City/[facility]/ZIP Code Phon e Number [facility] - [address] [place] [address] pH, Random, Urine (06/16/2022 9:32 AM CDT) P athologist Signature pH, Random, U 5.0 4.5 - 8.0 06/16/2022 DTL 11:17 AM CDT Specimen Anatomical Collection Method Collection Time Receive d Time (Source) Location / / Volume Laterality Urine 06/16/2022 9:32 AM 2 CDT 10:39 AM CDT Maira Haynes M.D. LAB URINE ORDERABLES Performing Organization Address [facility] Phon e Number [facility] - [address] (ABNORMAL) Microscopic Manual (06/16/2022 9:32 AM [...] M.D. LAB URINE ORDERABLES Performing Organization Address City/[facility]/ZIP Code Phon e Number [facility] - [address] [place] [address] [facility] [address] [facility] (ABNORMAL) Urinalysis with Microscopic: Urine, Catheter [...] M.D. LAB URINE ORDERABLES Performing Organization Address City/[facility]/ZIP Code Phon e Number [facility] [address] [place] [address] Formerly [facility]-[address] Hemoglobin A1c (06/16/2022 7:31 AM CDT) P athologist Signature Hemoglobin A1c, 4.9 4.0 - 5.6 06/16/2022 DTL B % 8:13 AM CDT Specimen Anatomical Collection Method Collection Time Receive d Time (Source) Location / / Volume Laterality Blood (Blood, 06/16/2022 7:31 AM 06/16/20 7:51 Venous) CDT AM CDT Kiran Melton M.D. LAB BLOOD ADD-ON Performing Organization Address City/[facility]/ZIP Code Phon e Number [facility] [address] [address] Laboratories-[address] Vitamin B12 Assay (06/16/2022 7:31 AM [...] [facility] Code Phon e Number [facility] - [address] [place] [address] Laboratories-[address] (ABNORMAL) Comprehensive Metabolic Panel (06/16/2022 7:31 [...] 06/16/2022 DTL Black/ mL/min/BSA 8:22 AM CDT [place] Comment: ----ADDITIONAL INFORMATION---- [...] Number [facility] - [address] [place] [phone] [facility] [place] [address] [facility] [address] [facility] Critical Care (06/15/2022 8:47 PM CDT) Narrative Scooter Tony, NIKKY, C.N.P. - 06/15 8:47 PM CDT Scooter Tony APRN, C.NCristiana ? 06/15/2022 ??8:47 PM Critical Care Date/Time: 06/15/2022 8:47 PM Performed by: Scooter Tony APRN C.N.P. Authorized by: Scooter Tony APRN, C.N.PBritton Critical care provider statement: Critical care total time (minutes): 45 Critical care time was exclusive of: sep arately billable procedures and treating other patients Critical care was necessary to treat or prevent imminent or life-threatening deterioration of the fo llowing conditions: ADVANC[employer] ANALYTICS ASSOCIATE failure or compromise Critical care was time spent personally by me on the following activities: ordering and review of radiographic stud ies, ordering and review of laboratory studies, discussions with the neuromedical center provider, discussions with consultants, examination of patient, rev iew of old charts and re-evaluation of patient's condition Araceli Ochoa APRNNCristiana PROCEDURE/MINOR SURGICA L ORDERABLES SARS Coronavirus 2, PCR Rapid, V Symptomatic (06/15/2022 7:51 PM CDT) [facility] Method Time Signature SARS CoV-2, Undetected Undetected 06/15/2022 [facility] PCR, Rapid, V 8:23 PM CDT Comment: ----ADDITIONAL INFORMATION---- This RT-PCR test was performed using the Tita SARS-CoV-2 and Influenza A/B Reagent assay from [employer], which has received Emergency Use Authori zation(EUA) by the U.S. Food and Drug Administration . Fact sheets for this Emergency Use Autho rization (EUA) assay can be found at the following link s: For Healthcare Providers: https://www.fda.gov/media/558109/downloa d For Patients: https://www.fda.gov/media/239919/downloa d SARS Coronavirus 2, Source, Rapid Swab, Nasopharynx 06/15/2022 7:58 PM CDT [facility] Specimen Anatomical Collection Method Collection Time Receive d Time (Source) Location / / Volume Laterality Varies 06/15/2022 7:51 PM 7:58 (Nasopharynx) CDT PM CDT Scooter Tony APRN CBrittonNCristiana LAB MICROBIOLOGY - GENE RAL ORDERABLES Performing Organization Address City/State/ZIP Code Phon e Number [facility] - [address] [place], [place] [address] [facility] [place] [address] [facility] [address] [...] N/A Digital Radiography ARZ LOS, Muskuloskeletal FLA [facility] Specimen (Source) Anatomical Collection Method [...] r epair mesh. Scooter Tony APRN, C.N.P. IM DIAGNOSTIC IMAGING PROCEDURES Troponin T, 2H/6H, 5th Gen (06/15/2022 2:48 PM CDT) [facility] Method Time Signature Troponin T, 2 [...] Venous) CDT PM CDT Narrative [facility] - [facility] - 06/15/2022 3:54 PM CDT Specimen Information: Specimen ID: [id number] Specimen Type: Blood Specimen Collection Start Date: 06/15/20 ??2:48 PM Specimen Received Date: 06/15/2022 ??3:2 1 PM Specimen ID: [id number] Specimen Type: Blood Specimen Collection Start Date: 06/15/20 ??3:53 PM Specimen Received Date: 06/15/2022 ??3:5 3 PM Demarcus Ernst M.D. LAB BLOOD TROPONIN Performing Organization Address City/State/ZIP Code Phon e Number [facility] - [address] [place], [place] [address] [place] [address] [facility] [address] DX Hip And Pelvis Left 2-3 Views [...] Signature Ventricular Rate 58 BPM MUSE ECG/Min [place] Interval 154 ms MUSE QRSD Interval 102 ms MUSE QT Interval 442 ms MUSE QTC Interval 433 ms MUSE P [place] 48 degrees MUSE R [place] -1 degrees MUSE T Wave [place] 38 degrees MUSE Specimen Anatomical Collection Method [...] Ernst M.D. ECG ORDERABLES Performing Organization Address City/[facility]/ZIP Code Phon e Number MUSE MUSE [...] M.D. LAB BLOOD TROPONIN Performing Organization Address City/[facility]/ZIP Code Phon e Number [facility] - [address] [place], [place] [address] [place] [address] [facility] 200 [facility] (ABNORMAL) Hepatic Function Panel (06/15/2022 12:37 [...] [facility] Code Phon e Number [facility] - [address] [place], [place] [address] [facility] [place] [address] [facility] [address] (ABNORMAL) CBC with Differential, Blood (06/15/2022 12:36 PM CDT) [facility] gist Method Time Signature Hemoglobin 10.4 [...] LAB BLOOD ADD-ON Performing Organization Address [facility] Phon e Number [facility] - [id number] [place] [id number] [place] [address] Prothrombin Time (PT) (06/15/2022 12:34 PM CDT) P athologist Signature Prothrombin 10.2 9.4 - 12.5 06/15/2022 [facility] Time, P sec 1:10 PM CDT INR 0.9 0.9 - 1.1 06/15/2022 [facility] 1:10 PM CDT Comment: ----ADDITIONAL INFORMATION---- Standard intensity warfarin therapeutic range: 2.0 to 3.0 ?? High intensity warfarin therapeutic rang e: 2.5 to 3.5 Specimen Anatomical Collection Method Collection Time Receive d Time (Source) Location / / Volume Laterality Blood (Blood, 06/15/2022 12:34 06/15/2022 1:03 Venous) PM CDT PM CDT Demarcus Ernst M.D. LAB BLOOD ADD-ON Performing Organization Address City/[facility] Phon e Number [facility] - [address] [place], [place] [address] [place] [address] Interpretation of Outside CT Spine (06/15/2022 [...] hardwa re and osteopenia. Demarcus Ernst M.D. [facility] [place] CT HEAD/BRAIN WO CON-Outside CT [...] min 2V-Outside Skeletal Xray (06/14/2022 1:30 PM CDT) Specimen (Source) Anatomical Location Collection [...] DIAGNOSTIC IMAGING PROCE DURES Performing Organization Address City/State/ZIP Code Phon e Number IIMS IIMS NA from Last 3 Months Insurance Payer Benefit Plan / Subscriber ID Effective Phone Address T ype Group Dates MEDICARE MEDICARE A AND B [id number] 2012-Pre [address] [place] [address] MEDICA MEDICA [id number] 2018-Pres [phone] Medica id HMO ACCESSABILITY ent [phone] [place] [address] Advance Directives For more information, please contact: [phone] Latest Code Status on File Code Status [...] 8:26 PM Full Code: Discussed Care Teams Business Office Director Relationship Specialty Start Date End Date Elsewhere, Pcp PCP - General Family Medicine 12/25/21
--- OUTSIDE RECORDS SUMMARY | 2022-09-09 07:53 | XMS_ITS | Encounter Summary ---
:1965 Author Organization [facility] Address [address] [place] [address] Care Team Providers Name Role Phone Elsewhere, Pcp Primary Care Provider Unavailable Encounter Details Date Type Department Care Team Description 09/06/2022 Documentation Department of Orthopedic Cyrus Polk[facility] [place] [address] [place] [address] 200 [place] [phone] (Wo rk) Social History Tobacco Use Types [...] you attend yazidism or Patient refused 2021 shinto services? Do [...] encounter Progress Notes Cyrus Polk M.D. - 09/06/2022 10:16 AM CDT She had a complex reconstruction with history of infection elsewhere, previously seen with implants that had no loosening. I attempted to speak with her on the phone. She was not there. I did note it takes 2-3 years to know where she is going to be in terms of the implant. I noted I would be happy to speak with her or to see her back here in the clinic at any point. Cyrus Polk M.D. CT CT Job ID: [id number] documented in this encounter Plan of Treatment Not on filedocumented as of this encounter Visit Diagnoses Not on filedocumented in this encounter Additional Health Concerns Assessment Noted Time PHQ-9 Depression Total Score: 16 02/11/2021 12:00 AM C DT documented as of this encounter Care Teams Composition Roll Maker And Cutter Relationship Specialty Start Date End Date Elsewhere, Pcp PCP - General Family Medicine 12/25/21 documented as of this encounter
--- OUTSIDE RECORDS SUMMARY | 2022-09-09 07:53 | XMS_ITS | Encounter Summary ---
:1965 Author Organization [facility] Address [address] [place] [address] Care Team Providers Name Role Phone Elsewhere, Pcp Primary Care Provider Unavailable Reason for Referral Outpatient (Routine) - Closed Specialty Diagnoses / Procedures Referred By Contact Refer red To Contact Diagnoses Aftercare Total Shoulder Arthroplasty Flavia Broderick M.D. [facility] Procedures DX Shoulder Left 2+ Views Referral ID Status Reason Start Date Expiration Date Visits Requ ested Visits Authorized [id number] Closed 06/23/2022 06/23/2023 1 1 Reason for Visit Outpatient (Routine) - Closed Specialty Diagnoses / Procedures Referred By Contact Refer red To Contact Diagnoses Aftercare Total Shoulder Arthroplasty Flavia Broderick M.D. [facility] Procedures DX Shoulder Left 2+ Views Referral ID Status Reason Start Date Expiration Date Visits Requ ested Visits Authorized [id number] Closed 06/23/2022 06/23/2023 1 1 Encounter Details Date Type Department Care Team Description 06/29/2022 Hospital Encounter Department of Flavia Broderick re Total Radiology, Severiano Porter M.D. Shoulder Arthroplasty Building, in [place], [place] [address] [place] [address] Social History Tobacco Use Types Packs/Day Years [...] you attend samaritan or Patient refused 2021 nondenominational services? Do [...] this encounter Care Teams Home Health Care Case Manager Relationship Specialty Start Date End Date Elsewhere, Pcp PCP - General Family Medicine 12/25/21 documented as of this encounter
--- OUTSIDE RECORDS SUMMARY | 2022-09-09 07:53 | XMS_ITS | Encounter Summary ---
:1965 Author Organization [facility] Address [address] [place] [address] Care Team Providers Name Role Phone Elsewhere, Pcp Primary Care Provider Unavailable Reason for Visit Reason Comments Med Refill Encounter Details Date Type Department Care Team Description 07/19/2022 Refill Division of [facility] Internal H Hoda parmar M.D. Med Refill Medicine, [facility], [place] [address] [place] [address] [place], [place] [address] [phone] Social History Tobacco Use Types Packs/Day Years [...] you attend presybeterian or Patient refused 2021 confucianism services? Do [...] as of this encounter Care Teams Bicycle Service Technician Relationship Specialty Start Date End Date Elsewhere, Pcp PCP - General Family Medicine 12/25/21 documented as of this encounter
--- OUTSIDE RECORDS SUMMARY | 2022-09-09 07:53 | XMS_ITS | Encounter Summary ---
:1965 Author Organization [facility] Address 200 [place] [address] Care Team Providers Name Role Phone Elsewhere, Pcp Primary Care Provider Unavailable Reason for Visit Reason Comments Medication Question Encounter Details Date Type Department Care Team Description 06/21/2022 Clinical Communication RST ANDREW Pollard, Medication Question 200 [facility] Lilian Hughes [place], [place] 200 [facility] [address] [place] [address] Social History Tobacco Use Types Packs/Day Years [...] you attend mandaeism or Patient refused 2021 amish services? Do [...] 1:12 PM CDT Prescriptions are sent to [facility] Telephone Encounter - Brenda Wright - 06/23/2022 3:02 PM CDT The patient called again re: her pregabalin prescription. She did not pick it up at the hospital pharmacy since she did not know it was there. Her regular pharmacy is [facility] in [place]. A newprescription needs to be sent to [facility] in [place]. The patient is out of this medication. Please call the patient if any questions: . She has been calling and has not heard from anyone re: this. 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 Brenda Jefferson [phone] documented in this encounter Plan of Treatment Not on filedocumented as of this encounter Visit Diagnoses Not on filedocumented in this encounter Additional Health Concerns Assessment Noted Time PHQ-9 Depression Total Score: 16 02/11/2021 12:00 AM C DT documented as of this encounter Care Teams Image Processing Engineer Relationship Specialty Start Date End Date Elsewhere, Pcp PCP - General Family Medicine 12/25/21 documented as of this encounter
--- OUTSIDE RECORDS SUMMARY | 2022-09-09 07:53 | XMS_ITS | Encounter Summary ---
:1965 Author Organization [facility] Address [address] [place] [id number] Care Team Providers Name Role Phone Elsewhere, Pcp Primary Care Provider Unavailable Reason for Visit Reason Comments Patient needs to r/s Jul 02 appointments Encounter Details Date Type Department Care Team Description 06/28/2022 Clinical Communication RST ANDREW Pollard, Patient needs to r/s [address] [facility] Lilian Hughes Jul 02 appointments [place], [place] [address] [place] [phone] [place] [address] Social History Tobacco Use Types Packs/Day Years [...] you attend rastafarian or Patient refused 2021 orthodoxy services? Do [...] call patient re: this . Thanks, Maritza [phone] documented in this encounter Plan of Treatment Not on filedocumented as of this encounter Visit Diagnoses Not on filedocumented in this encounter Additional Health Concerns Assessment Noted Time PHQ-9 Depression Total Score: 16 02/11/2021 12:00 AM C DT documented as of this encounter Care Teams Equipment Manager Relationship Specialty Start Date End Date Elsewhere, Pcp PCP - General Family Medicine 12/25/21 documented as of this encounter
--- OUTSIDE RECORDS SUMMARY | 2022-09-09 07:53 | XMS_ITS | Encounter Summary ---
:1965 Author Organization [facility] Address [address] [place] [address] Care Team Providers Name Role Phone Elsewhere, Pcp Primary Care Provider Unavailable Reason for Referral Outpatient (Routine) - Authorized Specialty Diagnoses / Procedures Referred By Contact Refer red To Contact Diagnoses Pain Shoulder Left Alfredo Herrera O.P.A.-C. [facility] Procedures DX Shoulder Left 2+ Views [address] [place] [phone] Referral ID Status Reason Start Date Expiration Date Visits V isits Requested Authorized [id number] Authorized 08/09/2022 08/09/2023 1 1 Reason for Visit Reason Comments Return Visit Encounter Details Date Type Department Care Team Description 08/09/2022 Clinical Communication Department of Cyrus Polk Visit Orthopedic Surgery in Lilian Souza [place], [place] [address] [place] [address] 200 [place] [phone] Social History Tobacco Use Types Packs/Day Years [...] you attend pentecostalism or Patient refused 2021 baptist services? Do you belong to any clubs or No 05/17/2022 organizations such as pentecostalism groups, unions, [email or web address] or athletic groups, or school groups? How [...] Treatment Scheduled Orders Name Type Priority Associated Order [...] documented as of this encounter Care Teams Coverer Relationship Specialty Start Date End Date Elsewhere, Pcp PCP - General Family Medicine 12/25/21 documented as of this encounter
--- OUTSIDE RECORDS SUMMARY | 2022-09-09 07:53 | XMS_ITS | Encounter Summary ---
:1965 Author Organization [facility] Address 200 [place] [address] Care Team Providers Name Role Phone Elsewhere, Pcp Primary Care Provider Unavailable Reason for Referral Physical Therapy (Routine) - Authorized Specialty Diagnoses / Procedures Referred By Contact Refer red To Contact Diagnoses Aftercare Total Shoulder Arthroplasty Flavia Broderick M.D. [facility] Procedures PT or OT eval and treat (first available) Referral ID Status Reason Start Date Expiration Date Visits V isits Requested Authorized [id number] Authorized 06/23/2022 06/23/2023 99 99 utpatient (Routine) - Closed Specialty Diagnoses / Procedures Referred By Contact Refer red To Contact Diagnoses Aftercare Total Shoulder Arthroplasty Flavia Broderick M.D. [facility] Procedures DX Shoulder Left 2+ Views Referral ID Status Reason Start Date Expiration Date Visits Requ ested Visits Authorized [id number] Closed 06/23/2022 06/23/2023 1 1 Reason for Visit Reason Comments Post-op Encounter Details Date Type Department Care Team Description 06/23/2022 Clinical Communication Department of Cyrus Polk-op Orthopedic Surgery in Lilian Souza [place], [place] 200 [facility] 200 [place] [phone] [phone] Social History Tobacco Use Types Packs/Day Years [...] documented as of this encounter Care Teams Jewel Bearing Facer Relationship Specialty Start Date End Date Elsewhere, Pcp PCP - General Family Medicine 12/25/21 documented as of this encounter
--- OUTSIDE RECORDS SUMMARY | 2022-09-09 07:53 | XMS_ITS | Encounter Summary ---
:1965 Author Organization [facility] Address 200 [place] [address] Care Team Providers Name Role Phone Elsewhere, Pcp Primary Care Provider Unavailable Reason for Visit Reason Comments Walking library clerical assistant device [facility] Neurosurgery Encounter Details Date Type Department Care Team Description 09/06/2022 Clinical Communication Department of Robert Diehl library clerical assistant Neurology in L, M.D. device ([place], 200 [facility] Neurosurgery ) [place], [place] [address] [place] [address] [place], [place] [phone] (Work) [phone] Social History Tobacco Use Types Packs/Day Years [...] you attend buddhist or Patient refused 2021 yazidi services? Do [...] Telephone Encounter - Zuly Alex R.N. - 09/06/2022 2:45 PM CDT I attempted to reach the patient twice. I left a message for her to call back. Dr. Diehl does not provide orders for assistive devices. This needs to come from PT/OT. She can contact her primary care provider for referral to the appropriate therapy. Telephone Encounter - Claire Aguayo - 09/06/2022 1:47 PM CDT Chief Complaint Reason for Call: Patient calls in today looking for who to get in contact with about getting a walking library clerical assistant device that will help her get around. She currently has a cane and a walker and they do not work too well. She is constantly off balance and going to the left. I am not sure if there is anything from the Neurology or Neurosurgery side that we can do to help this. She states that she keeps getting the run around from other departments as to who she should be in contact with to get assistance. It appears in05/19/22 she reached out looking for help with a scooter Rx and was deferred to PT/OT. She was also seen by Dr. Benjamin Please advise. Person calling / Relationship: Self Caller was made aware of the two- to four-business day call turnaround time. Date last seen: 11/18/21 Future appointment: no Dx: Stroke Cerebrovascular Accident Personal History Claire Aguayo, Truck Driver Flatbed 09/06/22 1:47 PM CDT documented in this encounter Plan of Treatment Not on filedocumented as of this encounter Visit Diagnoses Not on filedocumented in this encounter Additional Health Concerns Assessment Noted Time PHQ-9 Depression Total Score: 16 02/11/2021 12:00 AM C DT documented as of this encounter Care Teams It Network Engineer Relationship Specialty Start Date End Date Elsewhere, Pcp PCP - General Family Medicine 12/25/21 documented as of this encounter
--- OUTSIDE RECORDS SUMMARY | 2022-09-09 07:54 | XMS_ITS | Encounter Summary ---
:1965 Author Organization [facility] Address [address] [place] [address] Care Team Providers Name Role Phone Elsewhere, Pcp Primary Care Provider Unavailable Reason for Visit Reason Comments xray results Encounter Details Date Type Department Care Team Description 06/10/2022 Clinical Communication Department of Cyrus Polk xr ay results Orthopedic Surgery in Lilian Souza [place], [place] [address] [place] [address] 200 [place] [phone] [phone] Social History Tobacco Use Types Packs/Day Years [...] you attend buddhism or Patient refused 2021 gnosticism services? Do [...] Cyrus Polk M.D. CT CT Job ID: [id number] documented in this encounter Miscellaneous Notes Telephone [...] documented as of this encounter Care Teams Knocker Off Relationship Specialty Start Date End Date Elsewhere, Pcp PCP - General Family Medicine 12/25/21 documented as of this encounter
--- OUTSIDE RECORDS SUMMARY | 2022-09-09 07:54 | XMS_ITS | Encounter Summary ---
:1965 Author Organization [facility] Address 200 [place] [address] Care Team Providers Name Role Phone Elsewhere, Pcp Primary Care Provider Unavailable Encounter Details Date Type Department Care Team Description 06/17/2022 Orders Only RST HIM [place], Chronic Pain Syndrome (Prima ry Dx); 200 [facility] Lilian Hughes Transient Ischemic Attack; [place], [place] 200 [facility] Fibromyalgia [address] [place] [address] Social History Tobacco Use Types Packs/Day Years [...] you attend christianity or Patient refused 2021 anabaptism services? Do [...] documented as of this encounter Care Teams Lead Machinist Relationship Specialty Start Date End Date Elsewhere, Pcp PCP - General Family Medicine 12/25/21 documented as of this encounter
--- OUTSIDE RECORDS SUMMARY | 2022-09-09 07:54 | XMS_ITS | Encounter Summary ---
:1965 Author Organization [facility] Address [address] [place] [address] Care Team Providers Name Role Phone Elsewhere, Pcp Primary Care Provider Unavailable Reason for Visit Reason Comments Post-op Problem Encounter Details Date Type Department Care Team Description 06/03/2022 Clinical Communication Department of Cyrus Polk st-op Problem Orthopedic Surgery in Lilian Souza [place], [place] [address] [place] [address] 200 [place] [address] [phone] Social History Tobacco Use Types Packs/Day Years [...] you attend sikh or Patient refused 2021 evangelical services? Do [...] Cyrus Polk M.D. CT CT Job ID: [id number] documented in this encounter Miscellaneous Notes Telephone [...] bent forward again. Please call her at [phone] to discuss. documented in this encounter Plan of Treatment Not on filedocumented as of this encounter Visit Diagnoses Not on filedocumented in this encounter Additional Health Concerns Assessment Noted Time PHQ-9 Depression Total Score: 16 02/11/2021 12:00 AM C DT documented as of this encounter Care Teams Homebirth Midwife Relationship Specialty Start Date End Date Elsewhere, Pcp PCP - General Family Medicine 12/25/21 documented as of this encounter
--- OUTSIDE RECORDS SUMMARY | 2022-09-09 07:54 | XMS_ITS | Encounter Summary ---
:1965 Author Organization [facility] Address [address] [place] [address] Care Team Providers Name Role Phone Elsewhere, Pcp Primary Care Provider Unavailable Encounter Details Date Type Department Care Team Description 06/15/2022 Ancillary Procedure Department of Demarcus Ernst, Radiology in [place], [place] [address] [place] [address] [place] [phone] (Wo rk) Social History Tobacco Use Types [...] documented as of this encounter Care Teams Track Fitter Relationship Specialty Start Date End Date Elsewhere, Pcp PCP - General Family Medicine 12/25/21 documented as of this encounter
--- OUTSIDE RECORDS SUMMARY | 2022-09-09 07:54 | XMS_ITS | Encounter Summary ---
:1965 Author Organization [facility] Address [address] [place] [address] Care Team Providers Name Role Phone Elsewhere, Pcp Primary Care Provider Unavailable Encounter Details Date Type Department Care Team Description 05/18/2022 Ancillary Procedure Department of Anesthesiology, [place] Social History Tobacco Use Types Packs/Day Years [...] you attend nondenominational or Patient refused 2021 gnosticist services? Do [...] as of this encounter Care Teams Policy Advisor Relationship Specialty Start Date End Date Elsewhere, Pcp PCP - General Family Medicine 12/25/21 documented as of this encounter
--- OUTSIDE RECORDS SUMMARY | 2022-09-09 07:54 | XMS_ITS | Encounter Summary ---
:1965 Author Organization [facility] Address [address] [place] [address] Care Team Providers Name Role Phone Elsewhere, Pcp Primary Care Provider Unavailable Encounter Details Date Type Department Care Team Description 05/18/2022 - Hospital Encounter [facility] Mable Polk In fection Of Left Shoulder In Infectious And Parasitic Diseases Classified Elsewhere (HCC) (Primary Dx); 05/20/2022 [facility] C[facility] Souza M.D. Shoulder Joint Disorder Left; [place], [facility] [address] [facility] Pain Shoulder Left; Building, [place], [place] Primary Os teoarthritis Shoulder Left Floor [address] [address] [facility] [phone] [place], [place] (Work) [address] Social History Tobacco Use [...] attend oriental orthodox or Patient refused 2021 jehovah's witness services? [...] AM CDT DISCHARGE SUMMARY BRIEF OVERVIEW Hospital: [facility] Discharge Provider: Cyrus Polk M.D. Primary Team: [...] RST ROEI OR DISCHARGE DISPOSITION Home-Health Care [facility] [6] ACTIVE ISSUES REQUIRING FOLLOW UP This document serves as a prescription to continue physical therapy, medications, and labs or x-raysif ordered/required. If you have any questions or concerns about surgery or upcoming appointments, please do not hesitateto contact Dr. Polk's office at [phone] during regular business hours (8am-5pm M-F). For emergencies on the weekend or after hours, you may contact Dr. Polk's service via the [facility] concrete paving machine operator at [phone]. Details for your 6 week follow-up appointment [...] to: Cyrus Polk MD Dept of Orthopedics [address], [address] None OUTPATIENT FOLLOW UP For appointment details [...] M.D.Wasserburger, Jory N, M.D.Markos, James R, M.D. [facility] OR Angie Mosquera was taken [...] THC multivit-min/iron/folic/ Take 1 tablet by 0 [id number] (HAIR, SKIN AND mouth daily. NAILS ADVANCED [...] during therapy session: yes Outcome Measures -[facility] Inpatient Short Form: -[facility] Basic Mobility (V.2) Raw Score: 18 AM-[facility] Basic Mobility (V.2) Standardized Score: 41.05 Interpretation: Clinicians answer the -[facility] [...] 6 pm, please page Jam service at [phone] For urgent matters from 6 pm until 6 am, please page [facility] at [facility] [phone] Jane Nguyen PharmBrittonD., R.Ph. - 05/19/2022 8:12 [...] at this time. Jane Nguyen Pharm.D., R.Ph. [phone] Kaushik Cadena M.D. - 05/19/2022 7:34 AM [...] 6 pm, please page Jam service at [phone] For urgent matters from 6 pm until 6 am, please page Ortho House at [facility] [phone] Paco Valentine - 05/18/2022 9:47 AM CDT Encounter: AM Admit Deanna Tradition: No jehovah's witness affiliation. Ms. Mosquera did not express any spiritual needs at this time. Plan: Will remain available for spiritual care as needed or requested. [phone] ([facility]). Rodrigo Preston, Mynor, R.Ph. - 05/18/2022 9:17 [...] Take 150 mg by mouth every morning. pajbffqbjg-jkqtulaqlumme-thpq (ESGIC) 50-325-40 mg per tablet Past Week [...] 1 spray as needed. 5 mg THC multivit-min/iron/folic/ouz028 (HAIR, SKIN AND NAILS ADVANCED ORAL) Past [...] (HCC) ??? Nicotine Dependence Unspecified ??? Other Prison Current Drug Therapy ??? Direct Infection Of [...] Profile Lives With: Alone Receives Help From: nursing care attendant, Family, Friend(s) ADL Assistance: Required assistance ADL Assistance Comments: Gets help from BEHAVIORAL HEALTH ASSISTANT for her bath/shower 3x/week, and for her meals IADL/Homemaking Assistance: Required assistance IADL/Homemaking Assistance Comments: Gets help for housecleaning Driving: Does not drive Driving Comments: takes her cane and medical alert with her. Occupational Role: On disability Occupational Role Comments: Previously worked at a [employer] Prior Mobility/Functional Transfers Level of [place]: Needs assistance Previous Transfer/Mobility Assistance Comments: Patient [...] mask during therapy session: yes Outcome Measures AM-[facility] Inpatient Short Form: AM-[facility] Basic Mobility [...] steps with a railing?: A Little -[facility] Basic Mobility (V.2) Raw Score: 18 -[facility] Basic Mobility (V.2) Standardized Score: 41.05 Interpretation: Clinicians answer the -[facility] [...] Nurse Referral Reason: Discharge Planning Primary Language: Turkish Fish Icer Services Used: No Person(s) present during interview: Person(s) Present During Interview: patient History of Present Illness #1 Primary Osteoarthritis Shoulder Left Social History Support System: children, case consultant/child protective services social worker, friends/neighbors and home care [...] Calm, Oriented Communication: Talks, Understands speaking, Understands Turkish Shopping: Needs assistance Transportation: Support from family Medication Management: Needs assistance Housekeeping: Needs assistance Meal Prep: Needs assistance Managing Finances: Independent Assistive Devices: Grab bars - wall, Eyeglasses Services/Resources: Other (comment) Agency Name: [facility] Services Provided: BEHAVIORAL HEALTH ASSISTANT services 3x/week, nurse visits every other week Baseline Services/Resources Primary care clinic and provider: [facility] Phone: Fax: Anticipated Needs Functional Status: Transfer to/from bed, chair, etc., Bathing, Dressing, Grooming/hygeine, Housekeeping, Shopping, Meal preparation, Mobility, Medication set-up/administration, Transportation use (drive car, use taxi/bus) Services/Resources: Other (comment) Agency Name: [facility] Services Provided: BEHAVIORAL HEALTH ASSISTANT services 3x/week, nurse visits every other week Transportation Needs: Support from family Does the patient need discharge transport arranged?: No Ride and Caregiver Arranged: Yes Anticipated Discharge Destination: Home-Health Care [facility] ASSESSMENT / PLAN Assessment: The service shop foreman met with Angie Mosquera to discuss her current hospitalization and home goingneeds. The patient was unaccompanied. The patient was a reliable historian. The role of service shop foreman was reviewed. The patient reviewed her prior level of care and support system. The patient receives support from her son, friends and home care staff. Patient reported her son lives in the same apartment as her. She also stated getting BEHAVIORAL HEALTH ASSISTANT services 3x/week and a nurse visits her every other week. The patient described her living environment as a two bedroom apartment. Housekeeping, grocery shopping, meal prep, and other household responsibilities have previously been completed by patient, patient's son and patient's caregiver(s). service shop foreman discussed the patient's potential needs at [facility] based on their home setting, previous needs and responsibilities, homebound status, and relevantassessments with the patient. The patient will be safe and supported to return home with [facility] or previous services noted above when medically ready. Support will be provided by son, friends and home care staff. The patient demonstrated understanding when discussing her home going plans and anticipated needs. At this time, the care team anticipates the patient requires the following service(s) to be reconnected: home healthcare. The patient identified the following as their current vendor(s): [facility]. During this visit patient verbalized she is hoping to increase her BEHAVIORAL HEALTH ASSISTANT hours and also inq uired about getting a scooter to assist in her mobility. Patient went on to share she is unstable attimes due to her stroke history. She thought perhaps her neurology doctor would be able to help her get a scooter. RN ROWAN recommended she follow up with the [facility] in regards to wanting more BEHAVIORAL HEALTH ASSISTANT hours. She was also recommended to follow up with her primary care provider to provide durable medical equipment justification for a scooter, as she is currently hospitalized for orthopedic surgery. Patient verbalized understanding. Patient informed RN CM would be reconnecting her BEHAVIORAL HEALTH ASSISTANT services and nurse visits with [facility]. Patient agreeable to RN CM completing this and even provided RN CM the name and contact of her BEHAVIORAL HEALTH ASSISTANT and RN. After reviewing the patient's chart and meeting with the patient, the service shop foreman deemed the LACE+/readmission questions were not necessary. [...] directive. PRIMARY SERVICE: - Please provide a non-[facility] health order for resumption of previous [...] dismissal will be provided by family. 3. service shop foreman recommended reaching out to family, friends, and neighbors for assistance. 4. service shop foreman provided information regarding the dismissal process. 5. service shop foreman placed or requested the following hospital-based consult orders and/or referrals:None. 6. service shop foreman will continue to assess for homegoing needs with the interdisciplinary team. 7. service shop foreman encouraged the patient to reach out with [...] will discharge to home with [facility] reconnect. Identify possible barriers to meeting goals/advancing plan of care: none End of Shift Summary: Patient stayed on schedule with prn pain meds (Tramadol and oxycodone) throughout the shift. Encouraged using ice packs to help with pain and swelling. Patient's primapore dressing was changed to Aquacell AG and is clean, dry and intact. Patient has baseline numb/tingling, moderate waist fitter, skin pink and warm with +2 pulses. Patient expects RN from [facility] to visit on Tuesday, May 24. Patient's friend will transport home. Medications including: oxycodone and tramadol were picked up [facility]. documented in this encounter OR Notes Op Note - Cyrus Polk M.D. - 05/18/2022 5:54 PM CDT STAFF: Cyrus Polk M.D. RESIDENT: Jenna Zaldivar M.D. PRE-OPERATIVE DIAGNOSIS Left dislocated reverse arthroplasty. POST-OPERATIVE DIAGNOSIS Left dislocated reverse arthroplasty. A housing assistant actively participated and was necessary for [...] glenosphere, placement new humeral stem and tray, [id number] Cyrus Polk M.D. CT CT Job ID: [id number]/mac documented in this encounter Miscellaneous Notes Hospital Course - Kaushik Cadena M.D. - 05/19/2022 12:18 PM CDT Surgery Information This Encounter Past Procedures (05/19/2021 to Today) Date Procedures Providers Location 05/18/2022 ARTHROPLASTY REPLACEMENT TOTAL SHOULDER. Cyrus Polk M.D.Wasserburger, Jory N, M.D.Markos, James R, M.D. [facility] OR Angie Mosquera was taken to [...] with Differential, Blood (05/20/2022 3:43 AM CDT) [facility] Method Time Signature Hemoglobin 8.4 [...] [facility] [address] [place], [place] [address] [facility] [place] [address] [facility] [address] [facility] (ABNORMAL) CBC with Differential, Blood (05/19/2022 3:26 AM CDT) [facility] gist Method Time Signature Hemoglobin 7.6 [...] [facility] - [address] [place], [place] [address] [facility] [place] [address] [facility] [address] [facility] (ABNORMAL) Basic Metabolic Panel (05/19/2022 3:26 [...] 05/19/2022 DTL Black/ mL/min/BSA 4:38 AM CDT Belizean Comment: ----ADDITIONAL INFORMATION---- Estimated GFR [...] [facility] - [address] [place], [place] [address] [facility] [place] [address] [facility] [address] [...] postoperative purposes. Jenna NIELSON DIAGNOSTIC IMAGING PROCE [facility] Surgical Pathology, Frozen Lab (05/18/2022 1:04 PM CDT) Component Value Ref Test Analysis Performed At [facility] Range Method Time Signature 05/20/2022 [...] [facility] [address] [place], [place] [address] [facility] [place] [address] [facility] [address] Bacteria Cult, Aerobe / Anaerobe+Susc (05/18/2022 1:03 PM CDT) [facility] gist Method Time Signature Bacteria Cult, No growth 06/01/2022 DTL Aerobe/Anaerob after 14 6:02 PM CDT e+Susc days of incubation. Specimen Anatomical Collection Method Collection Time Receive d Time (Source) Location / / Volume Laterality Shoulder, Left 05/18/2022 1:03 PM 022 5:21 CDT PM CDT Comment: Specimen Source Site: Tissue #1 Narrative [facility] - 06/01/2022 6:02 PM CDT Bacterial Culture: Placed in Bactec aero bic and Bactec anaerobic bottles Cyrus Polk M.D. LAB MICROBIOLOGY - GENERAL O MARY Performing Organization Address City/[facility]/ZIP Code Phon e Number [facility] - [address] [place], [place] [address] [facility] [place] [address] [facility] [address] [facility] Bacteria Cult, Aerobe / Anaerobe+Susc (05/18/2022 1:03 PM CDT) [facility] Method Time Signature Bacteria Cult, No growth 06/01/2022 DTL Aerobe/Anaerob after 14 6:02 PM CDT e+Susc days of incubation. Specimen Anatomical Collection Method Collection Time Receive d Time (Source) Location / / Volume Laterality Shoulder, Left 05/18/2022 1:03 PM 022 5:12 CDT PM CDT Comment: Specimen Source Site: Tissue #3 Narrative [facility] - 06/01/2022 6:02 PM CDT Bacterial Culture: Placed in Bactec aero bic and Bactec anaerobic bottles Cyrus Polk M.D. LAB MICROBIOLOGY - GENERAL O MARY Performing Organization Address City/[facility]/ZIP Code Phon e Number [facility] - [address] [place], [place] [address] [facility] [place] [place] [address] Bacteria Cult, Aerobe / Anaerobe+Susc (05/18/2022 1:03 PM CDT) [facility] Method Time Signature Bacteria Cult, No growth 06/01/2022 DTL Aerobe/Anaerob after 14 6:02 PM CDT e+Susc days of incubation. Specimen Anatomical Collection Method Collection Time Receive d Time (Source) Location / / Volume Laterality Shoulder, Left 05/18/2022 1:03 PM 022 5:07 CDT PM CDT Comment: Specimen Source Site: Tissue #2 Narrative [facility] - 06/01/2022 6:02 PM CDT Bacterial Culture: Placed in Bactec aero bic and Bactec anaerobic bottles Cyrus Polk M.D. LAB MICROBIOLOGY - GENERAL O MARY Performing Organization Address City/[facility]/ZIP Code Phon e Number [facility] - [address] [place], [place] [address] [facility] [place] [address] [facility] [address] [facility] documented in this encounter Visit Diagnoses [...] 05/19/2022 05/20/2022 acetaminophen tablet 1,000 mg (TYLENOL) 9197 (Given - Provider: Corrie Toscano RBrittonN.)3912 (Given - Provider: Catalina B Mccloud, R.N.) [...] 1240 (Given - Provider: Ihsan Townsend APRN, BACK TENDER PULP DRIER) 2,000 mg (rounded from 1,652.5 mg = [...] 1240 (Given - Provider: Ihsan Townsend APRN, BACK TENDER PULP DRIER) 1,000 mg (1 g), intravenous, at 300 [...] of calcium (TUMS) 1015 (Given - Provider: Isauar Vu R.N.)1957 (Given - Provider: Melissa Garcia R.N.)2241 (Given - Provider: Jonny ThorneS.N., R.N., O.C.N.) 400 mg of calcium, oral, Every 2 hour OK N, indigestion, Starting on Tue05/18/22 at 1608, [...] over 3 days 1 patch (TRANSDERM S EXECUTIVE CYBER LEADER) (CANCELED) 1118 (Medication Applied - Provider: Cristy [...] as of this encounter Care Teams Art Consultant Relationship Specialty Start Date End Date Elsewhere, Pcp PCP - General Family Medicine 12/25/21 documented as of this encounter
--- OUTSIDE RECORDS SUMMARY | 2022-09-09 07:54 | XMS_ITS | Encounter Summary ---
:1965 Author Organization [facility] Address [address] [place] [address] Care Team Providers Name Role Phone Elsewhere, Pcp Primary Care Provider Unavailable Encounter Details Date Type Department Care Team Description 06/15/2022 Ancillary Procedure Department of Demarcus Ernst, Radiology in [place], [place] [address] [facility] [address] [place] [address] [phone] (Wo rk) Social History Tobacco Use Types [...] you attend orthodox or Patient refused 2021 restorationist services? Do [...] the right vertebral artery. Procedure Note Alfredo Kwnog M.D., Ph.D. - 2021 EXAM: INTERPRETATION OF [...] documented as of this encounter Care Teams Photo Lab Manager Relationship Specialty Start Date End Date Elsewhere, Pcp PCP - General Family Medicine 12/25/21 documented as of this encounter
--- OUTSIDE RECORDS SUMMARY | 2022-09-09 07:54 | XMS_ITS | Encounter Summary ---
:1965 Author Organization [facility] Address [address] [place] [address] Care Team Providers Name Role Phone Elsewhere, Pcp Primary Care Provider Unavailable Reason for Visit Reason Comments Scooter prescription Encounter Details Date Type Department Care Team Description 05/19/2022 Clinical Communication Department of Robert Diehl prescription Neurology in [place], [facility] [place], [place] [address] [place] [phone] [place], [place] [phone] (Work) [phone] Social History Tobacco Use Types Packs/Day Years [...] you attend mandaen or Patient refused 2021 evangelical services? Do [...] yesterday and is currently still admitted to [facility] until tomorrow. I encouraged her to [...] Stroke Cerebrovascular Accident Personal History Olivia Pedroza, Citizenship Instructor 05/19/22 11:51 AM CDT documented in this encounter Plan of Treatment Not on filedocumented as of this encounter Visit Diagnoses Not on filedocumented in this encounter Additional Health Concerns Assessment Noted Time PHQ-9 Depression Total Score: 16 02/11/2021 12:00 AM C DT documented as of this encounter Care Teams Ship'S Cook Relationship Specialty Start Date End Date Elsewhere, Pcp PCP - General Family Medicine 12/25/21 documented as of this encounter
--- OUTSIDE RECORDS SUMMARY | 2022-09-09 07:54 | XMS_ITS | Encounter Summary ---
:1965 Author Organization [facility] Address [address] [place] [address] Care Team Providers Name Role Phone Elsewhere, Pcp Primary Care Provider Unavailable Encounter Details Date Type Department Care Team Description 06/17/2022 Anesthesia Event Department of Radiology, Shantell Verma APRN, GINETTE, DNAP [address] [place] [phone] [facility] bunch M.D. [address] [place] [phone] [place] [id number] [place] [phone] Anesthesia Record Procedure Summary Procedure Name Responsible Anesthesia Start Anesthesia Stop Time Anesthesiologist Time MR BRAIN WITHOUT IV Sapphire Verma APRN, SALES SERVICE TECHNICIAN, 06/17/22 1446 1702 CONTRAST DNAP Events Date [...] h andoff to the receiving staff during [facility] we 1. Identified the [...] over 3 days 1 patch (TRANSDERM S PRIVATE DUTY AIDE) 1 patch Lactated Ringers Free Drip 850 [...] you attend mandaen or Patient refused 2021 anabaptism services? Do [...] Notes Anesthesia Postprocedure Evaluation - Maritza Friend, SCREW MACHINE TENDER, SALES SERVICE TECHNICIAN, DNAP - 06/17/2022 5:09 PM CDT Patient: Angie Mosquera Procedure Summary Date: 06/17/22 Room / Location: Department of Radiology, [facility], in [place], [place] Anesthesia Start: 1446 Anesthesia Stop: 170 [...] ETT location: oral VL device: glide scope [place] scope blade size: 3 Adult tube size: [...] equina r/o compression Location: Department of Radiology, [facility], in [place], [place] Pertinent components of the patient's history [...] with patient /legal guardian or through an captain/airline pilot. Risks/Benefits/Alternatives of Blood transfusion discussed with patient [...] ETT location: oral VL device: glide scope [place] scope blade size: 3 Adult tube size: [...] ?? Airway event: no complications Sapphire Luci SCREW MACHINE TENDER, SALES SERVICE TECHNICIAN, DNAP ANESTHESIA ORDERABLES documented in this encounter [...] documented as of this encounter Care Teams Physician Industrial Relationship Specialty Start Date End Date Elsewhere, Pcp PCP - General Family Medicine 12/25/21 documented as of this encounter
--- OUTSIDE RECORDS SUMMARY | 2022-09-09 07:54 | XMS_ITS | Encounter Summary ---
:1965 Author Organization [facility] Address [address] [place] [address] Care Team Providers Name Role Phone Elsewhere, Pcp Primary Care Provider Unavailable Reason for Visit Reason Comments Followup [facility] Patient Encounter Details Date Type Department Care Team Description 06/15/2022 Clinical Communication Department of [facility], Robert gay ([facility] Neurology in [place], [place] Patient/) [place], [facility] [address] [place], [place] [address] [place] [phone] [place], [place] [phone] (Work) [phone] Social History Tobacco Use Types Packs/Day Years [...] you attend caodaism or Patient refused 2021 samaritan services? Do [...] She did end up being seeing in [place] and had a CT scan. I told her to followup with them and make sure that the images are sent here for Dr. Diehl to review. Caller was made aware of the two- to four-business day call turnaround time. Date last seen: 11/17/2021 Future appointment: None scheduled Dx: Stroke Cerebrovascular Accident Personal History Allyssa Amaya, Geriatric Physical Therapist 06/15/22 8:18 AM CDT documented in this encounter Plan of Treatment Not on filedocumented as of this encounter Visit Diagnoses Not on filedocumented in this encounter Additional Health Concerns Assessment Noted Time PHQ-9 Depression Total Score: 16 02/11/2021 12:00 AM C DT documented as of this encounter Care Teams Oil Expeller Operator Relationship Specialty Start Date End Date Elsewhere, Pcp PCP - General Family Medicine 12/25/21 documented as of this encounter
--- OUTSIDE RECORDS SUMMARY | 2022-09-09 07:54 | XMS_ITS | Encounter Summary ---
:1965 Author Organization [facility] Address [address] [place] [address] Care Team Providers Name Role Phone Elsewhere, [...] Embolism Right Vertebral Artery (HCC) M.DBritton [address] [place], [place] [address] Referral ID Status Reason Start Date Expiration Date Visits V isits Requested Authorized [id number] Authorized 06/17/2022 06/17/2023 1 1 Physical Therapy (Routine) - Authorized Specialty Diagnoses / Procedures Referred By Contact Refer red To Contact Baffle Mounter Diagnoses Weakness General Pain Back Ataxia Repeated Falls Debility Primary Osteoarthritis Shoulder Left 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 Stroke Cerebrovascular Accident Personal History Fusion Cervical Spine Status Post Maira Haynes, Fibromyalgia Chronic Pain Syndrome 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 Scooter Tony, NIKKY, C.N.P. [address] [place] [id number] Weakness General (Primary Dx); 06/18/2022 Encounter [facility], Neftali García M.D. [address] [place] [phone] Incontinence Urinary; [facility], Saul Pollard M.D. [address] [place] [address] Pain Back; Domitilla Ataxia; Building, Third Repeated Fal ls; Floor Debility; [address] [facility] Primary Osteoarthritis Shoul marquis Left; [place], [place] Ataxia From [facility] Cerebrovascular Accident; [id number] Stroke Cerebrovascular Accid ent Personal History; [phone] Fusion Cervical Spine Status Post; Fibromyalgia; Chronic [...] attend oriental orthodox or Patient refused 2021 yazidism services? Do [...] AM CDT DISCHARGE SUMMARY BRIEF OVERVIEW Hospital: [facility] Discharge Provider: Saul Pollard M.D. Primary Team: [facility] Medicine ([facility]) Primary Care Providers: Elsewhere, Pcp [...] Scheduled Appointments 06/21/2022 11:00 AM PHR PHARMACIST [address] [place] [address] Pharmacy For appointment details refer to your Patient Appointment Guide. TEST RESULTS PENDING AT DISCHARGE Pending Labs Order Current Status Basic Metabolic Panel In process DETAILS OF HOSPITAL STAY REASON FOR ADMISSION Pain Back Weakness General Incontinence Urinary Ataxia Repeated Falls HOSPITAL COURSE Ms. Mosquera is hospitalized on [facility] Medicine ([facility]) for evaluation and management of [...] does not want to transition to a senior living facility currently. She will be stable to discharge once her MRI of the brain and spine results are back and if they are not concerning. Saul Pollard M.D. Maira Haynes M.D. - 06/17/2022 2:07 PM CDT DISCHARGE SUMMARY BRIEF OVERVIEW Hospital: [facility] Discharge Provider: Saul Polalrd M.D. Primary Team: [facility] Medicine 4 ([facility]) Primary Care Providers: Elsewhere, Pcp [...] [facility] Medicine 4 ([facility]) for evaluation and management of [...] [facility] Medicine 4 ([facility]) Service. Please identify this service [...] needed, Assistance with walking and moving around [facility] Discharge information provided on 06/16/2022 Contact information: [facility], [address], Tessie Arora - 06/17/2022 10:50 AM CDT Take a copy of this after visit summary to your appointment(s). REID NATH June 28, 2022 - Tuesday --10:00 AM - Hospital Follow-Up with Dr. Blackwell, primary care provider, at [facility] RECOMMENDATIONS: * * [facility] You may have outpatient appointments at [facility] that changed during your hospitalization. Refer to your [facility] Patient Visit Guide (PVG) for the most current schedule of appointments and detailed instructions of tests/procedures. Call [phone], if you did not receive an PVG or need to CANCEL any [facility] appointment(s). AttachmentsThe following attachments cannot be sent through Care Everywhere. Pregabalin (By mouth) ([place])Furosemide (By mouth) ([place])documented in this encounter Medications at Time [...] THC multivit-min/iron/folic/ Take 1 tablet by 0 [id number] (HAIR, SKIN AND mouth daily. NAILS ADVANCED [...] Discussed patient's care with PT Outcome Measures [facility] Inpatient Short Form: Putting on and taking [...] Standardized Score: 44.27 Interpretation: Clinicians answer the -[facility] Inpatient Short Form based on observed patient [...] Assistance with meal preparation, Assistance with financial reserve clerk, Assistance with shopping, Assistance with housekeeping, Assistance [...] Melton M.D. - 06/17/2022 8:00 PM CDT [facility] 4 ([facility]) PROGRESS NOTE SUBJECTIVE No acute [...] [facility] Medicine 4 ([facility]) for evaluation and management of [...] Right Lives With: Alone Receives Help From: hotel valet attendant, Family, Friend(s) (Son lives in apt next to her.) ADL Assistance: Required assistance ADL Assistance Comments: Gets help from [employer] for her bath/shower 3x/week, and for her meals, RN once every 2 weeks. IADL/Homemaking Assistance: Required assistance IADL/Homemaking Assistance Comments: Gets help for housecleaning Driving: Does not drive Driving Comments: Friend assists Occupational Role: On disability Occupational Role Comments: Previously worked at a [employer] and [employer] Prior Mobility/Functional Transfers Level of Miller: Needs assistance Gait Devices/Wheelchair Used Comments: No [...] Additional Staff Present During Session: RN and transport specialist Outcome Measures [facility] Inpatient Short Form: -[facility] Basic Mobility (V.2) How much help from [...] a railing?: A Lot -[facility] Basic Mobility (V.2) Raw Score: 21 -[facility] Basic Mobility (V.2) Standardized Score: 45.55 Interpretation: Clinicians answer the -[facility] Inpatient Short Form based on observed patient [...] patient wasunsure of a few. Consider outpatient [facility] pharmacy review Changes to medications anticipated at discharge:pending hospital course Marlene Wu Pharm.D., R.Ph. [phone] Marlene Wu PharmOj., R.Ph. - 06/16/2022 1:14 PM CDT Images from the original note were not included. Admission Medication History Note Medication list source: Patient + [facility] refill history (patient gets her scheduled medications [...] Take 150 mg by mouth every morning. samtyqcftk-bphusnxahyqbb-nqrq (ESGIC) 50-325-40 mg per tablet Past Month [...] 1 spray as needed. 5 mg THC multivit-min/iron/folic/ewm057 (HAIR, SKIN AND NAILS ADVANCED ORAL) Past [...] Cornelius). Per . Demetri, she lost her ornament stapler months ago so has not been able to charge the device. Device was interrogated, however, it was unable to connect to the website programmer, likely due to the battery being depleted per patient report. exhibit technician Mandy in room during interrogation and aware that device is off. Carley Mendez M.D. PGY-3, Anesthesiology and Perioperative Medicine documented in this encounter H&P Notes Renetta Michael M.D., M.S. - 06/15/2022 11:41 PM CDT Images from the original note were not included. [facility] Medicine 4 ([facility]) - ADMISSION NOTE Hospital Day [...] but left AMA. She presented to the [facility] ED 06/15. In the ED, she was [...] Urinalysis Case will be staffed with supervising business risk consultant within 24 hours. Please page the [facility] Medicine 4 ([facility]) service pager at [phone] with questions or concerns. Renetta Michael M.D., M.S. PGY-3 [phone] Department of Internal Medicine Kiran Melton M.D. - 06/15/2022 12:05 AM CDT [facility] Medicine 4 ([facility]) Admission Note SUBJECTIVE CHIEF COMPLAINT [...] overflow incontinence. She was seen in the [place] [facility] a few days ago where they obtained a CT head without evidence for new infarct. She left against medical advice and came to [facility] for re-evaluation. Upon arrival to the ED, [...] Take 150 mg by mouth every morning. juqfgwkwgt-csthwxfatpwyz-mgdc (ESGIC) 50-325-40 mg per tablet, Take 1 [...] 1 spray as needed. 5 mg THC multivit-min/iron/folic/ifr736 (HAIR, SKIN AND NAILS ADVANCED ORAL), Take [...] / PLAN Ms. Mosquera is hospitalized on [place] [address] ([facility]) for evaluation and management of [...] or life-threatening deterioration of the following conditions: STONE REPAIRER failure or compromise Critical care was time [...] [facility] OBJECTIVE Store Person met with patient to discuss final discharge plans. Patient is agreeable to restart her home health nursing and [facility] along with PT. Patient will have her friend transport her home today. ASSESSMENT / PLAN Assessment The patient appear to have insight into the patient's needs at this time and are planning appropriately for discharge needs. They report agreement with the below plan with no further questions at this time. Plan [facility] Georgette RN: [phone] Home health requesting an AVS discharge summary [...] Cris Landin R.N. 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 IADL/Homemaking Assistance: Required assistance IADL/Homemaking Assistance Comments: Gets help for housecleaning Driving: Does not drive Driving Comments: Friend assists Occupational Role: On disability Occupational Role Comments: Previously worked at a [employer] and [employer] Prior Mobility/Functional Transfers Level of Miller: Needs assistance Previous Transfer/Mobility Assistance Comments: Patient [...] quite lethargic, yet impulsive required assistance to [facility] gown and shoulder immobilizer to maximize [...] and patient's status was discussed Outcome Measures [facility] Inpatient Short Form: Putting on and taking [...] Standardized Score: 32.03 Interpretation: Clinicians answer the -[facility] Inpatient Short Form based on observed patient [...] Assistance with meal preparation, Assistance with financial reserve clerk, Assistance with shopping, Assistance with housekeeping, Assistance [...] Planning Assessment SUBJECTIVE Assessment Information Referral Source: dining host Referral Reason: Discharge Planning Primary Language: [place] Dry Transfer Worker Services Used: No Person(s) present during interview: [...] Pleasant, Calm Communication: Talks, Understands speaking, Understands [place] Shopping: Needs assistance Transportation: Support from family Medication Management: Independent Housekeeping: Dependent Meal Prep: Needs assistance Managing Finances: Needs assistance Assistive Devices: Cane, Tub/shower chair/bench Services/Resources: Home health Agency Name: Home health reconnect Services Provided: senior living twice monthly, [facility] 3 times a week Baseline Services/Resources Primary care clinic and provider: ELSEWHERE, PCP Services/Resources: Home health Additional Resources: none Anticipated Needs Functional Status: Bathing, Dressing, Grooming/hygeine, Meal preparation, Medication set-up/administration, Housekeeping, Shopping, Transportation use (drive car, use taxi/bus) Assistive Devices: Tub/shower chair/bench, Grab bars - toilet, Grab bars - wall Services/Resources: Home health Agency Name: Home health reconnect Services Provided: senior living twice monthly, [facility] 3 times a week Anticipated Modifications to the Patient's Home: Grab Bars Transportation Needs: Support from family Does the patient need discharge transport arranged?: No Phone Number for Ride/Caregiver: son or daughter Anticipated Discharge Destination: Home-Health Care [facility] ASSESSMENT / PLAN Assessment: The dining host met with Angie Mosquera to discuss her current hospitalization and home goingneeds. The patient was unaccompanied. The patient was a reliable historian. The role of dining host was reviewed. The patient reviewed her prior level of care and support system. The patient receives support from her daughter, son, and home care staff . The patient described her living environment as a apartment with elevator access with level entry. Housekeeping, grocery shopping, meal prep, and other household responsibilities have previously been completed by patient and patient's son. dining host discussed the patient's potential needs at [facility] based on their home setting, [...] ADL's. She currently has home health through [facility] for senior living twice monthly and [facility] 3 times a week for [...] identified the following as their current vendor(s): [facility]. After reviewing the patient's chart and meeting with the patient, the dining host deemed the LACE+/readmission questions were appropriate. The [...] readmission could not have been prevented. The dining host will share this information with the care team. The patient reports understanding that she will dismiss from the hospital when medically stable. Pending hospital course and medical readiness, no barriers to dismissal have been identified at this time. Plan: The patient agrees with the following plan. Patient's anticipated discharge disposition is: Home with Home Healthcare Reconnected: [facility] Transportation upon dismissal will be provided by family--son or daughter . dining host recommended a shower seat, grab bars, home delivery of groceries, and reaching out to family, friends, and neighbors for assistance. dining host provided information regarding the dismissal process and the Advance Health Care Planning: Making Your Wishes Known [phone] booklet along with education on the benefits of completing an advance directive and resources that may assist them in this process. The patient sharedno further questions or concerns regarding advance directives. The patient appears to have an understanding of how to complete an advance directive and reported awareness of resources to assist them. dining host placed or requested the following hospital-based consult orders and/or referrals: PT/OT. dining host will continue to assess for homegoing needs with the interdisciplinary team. dining host encouraged the patient to reach out with any questions/concerns. Patient to discharge with home health care. [facility] Georgette RN: [phone] Home health requesting an AVS discharge summary [...] Prescriptions are provided by pain management through [facility] and her PCP [...] lumbosacral radicular pain, last reportedly revised at [facility] in 2019. The initial implant date is unknown. She had turned the device off for one her surgeries, then misplaced the website programmer. She has received a new website programmer, but has not gotten to using the new device. It is at her home. She thinks she has not used the SCS for several months. CURRENT MEDICATIONS: Acetaminophen 1 g four times a day Mwckwxwjohkzx-ldnolgba-qnflueufe-Lipoderm cream twice a day Diclofenac 1% gel [...] mg by mouth every morning. Past Week xsnswrsxqu-fdafppyhlmrdg-klkh (ESGIC) 50-325-40 mg per tablet Take 1 [...] as needed. 5 mg THC Past Week multivit-min/iron/folic/zkn306 (HAIR, SKIN AND NAILS ADVANCED ORAL) Take [...] Daily Given, 1,000 mg at 06/16 1345 xpvmzlqzlcvxc-rgrouagv-rvnhpgloa in Lipoderm 2%-0.5%-2% cream 1 g 1 [...] PRN Given, 100 mg at 06/16 921 ikfvbygdmr-lqotxrpqdmsur-msyy 50-325-40 mg per tablet 1 tablet (ESGIC) [...] Depth/Rhythm: Regular (06/15/228 : Asia Cortez RBetsy, [facility]) PAIN PHYSICAL EXAM GENERAL: Pleasant, 57 y.o. [...] longitudinally with an outpatient pain provider at [facility]. Though she is on several STONE REPAIRER acting medications that could increase the risk [...] organic cause for symptoms - work with [employer] to get her SCS therapy active in the outpatient setting Discussed with Pain Heel Reducer Dr. Kaushik Gustafson. Thank you for allowing the Inpatient Pain Service to be a part of Angie Mosquera's care. The [facility] Inpatient Pain Service will sign off. Please page [phone] with questions. Anthony Shepard PAna, Juice.P.Jolanta., C.S.C.S. 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 IADL/Homemaking Assistance: Required assistance IADL/Homemaking Assistance Comments: Gets help for housecleaning Driving: Does not drive Driving Comments: Friend assists Occupational Role: On disability Occupational Role Comments: Previously worked at a [employer] and [employer] Prior Mobility/Functional Transfers Level of Miller: Needs assistance Gait Devices/Wheelchair Used Comments: No AD since [facility]. Home Equipment Home Adaptive Equipment: Medical alert [...] surgicalmask, eye protection, and gloves Outcome Measures -[facility] Inpatient Short Form: -[facility] Basic Mobility (V.2) How much help from [...] 3-5 steps with a railing?: A Lot AM-[facility] Basic Mobility (V.2) Raw Score: 20 AM-[facility] Basic Mobility (V.2) Standardized Score: 43.99 Interpretation: Clinicians answer the -[facility] Inpatient Short Form based on observed patient [...] independent with ADLs but does have a [employer]OUNT[employer] HUNTER 3 times per week to assist with [...] is currently below her functional baseline, declining senior living facility but agreeable to home health PT [...] presented to the ED at [facility] for a second opinion. Review [...] (WELLBUTRIN XL) 150 mg, oral, Every morning wmroeukcsy-tegzvapivzhxw-krqj (ESGIC) 50-325-40 mg per tablet 1 tablet, [...] 1 spray as needed. 5 mg THC multivit-min/iron/folic/vqr337 (HAIR, SKIN AND NAILS ADVANCED ORAL) 1 [...] PM CDT Care of patient transferred to or by Scooter Tony. Disposition pending MRI with [...] have chronic pain and she lost the ornament stapler for her Peak Rx #2 SCS device several months ago. An MRI [...] relieve her symptoms she was seen in [facility] ER few days ago and had no [...] over the past weeks was recently evaluated [facility] which she had a CT of her [...] as of 06/16/22 0848 TueJun 15, 2022 0788 Given patient's history exam I do have concern for possible underlying cauda equina given her recent falls increased back pain some lower leg weakness this could be secondary to other injury thus difficult to assess and urinary incontinence. Will page Neurology have them evaluate further. [id number] Patient continues to be a poor historian [...] medicine. 2025 Patient will go back to [facility] awaiting a MRI and then disposition. 2025 [...] is a the provider I spoke with.Pager #[phone] Final Diagnoses: as of 06/16/22 0848 Weakness [...] a recent fall. Pt was seen in [facility] yesterday. Ct scan performed. Pt is here for a second opinion. Elaine Winn R.N. 06/15/22 1108 documented in this encounter Miscellaneous Notes Hospital Course - Maira Haynes M.D. - 06/16/2022 7:30 AM CDT Ms. Mosquera is hospitalized on [facility] Medicine 4 ([facility]) for evaluation and management of [...] Referral Routine Weakness G eneral Ordered: PT ([facility]) Pain Back 06/17/2022 Ataxia Repeated Falls [...] CBC without Differential (06/18/2022 7:50 AM CDT) [facility] Method Time Signature Hemoglobin 11.2 (L) [...] [facility] [address] [place], [place] [address] [facility] [place] [address] Laboratories-[facility] [address] Basic Metabolic [...] 06/18/2022 DTL Black/ mL/min/BSA 8:56 AM CDT Omani Comment: ----ADDITIONAL INFORMATION---- Estimated GFR calculated [...] [facility] [address] [place], [place] [address] [facility] [place] [address] Laboratories-[facility] [address] [facility] MR Thoracic Spine without IV Contrast [...] 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 The [place] intraocular lenses are absent . 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 The [place] intraocular lenses are absent . 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 The [place] intraocular lenses are absent . 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 The [place] intraocular lenses are absent . 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 The [place] intraocular lenses are absent . 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 The [place] intraocular lenses are absent . Mild mucosal [...] CBC without Differential (06/17/2022 8:00 AM CDT) [facility] gist Method Time Signature Hemoglobin 10.5 [...] [facility] - [address] [place], [place] [address] [facility] [place] [address] [facility] [address] [facility] Basic Metabolic Panel (06/17/2022 8:00 AM [...] 06/17/2022 DTL Black/ mL/min/BSA 9:34 AM CDT Omani Comment: ----ADDITIONAL INFORMATION---- Estimated GFR calculated [...] M.D. LAB BLOOD ADD-ON Performing Organization Address City/[facility]/ZIP Code Phon e Number [facility] - [address] [place], [place] [address] [place] [id number] [place] [address] (ABNORMAL) Dipstick, Urine (06/16/2022 9:32 AM CDT) [facility] gist Method Time Signature Hemoglobin, Large (A) [...] M.D. LAB URINE ORDERABLES Performing Organization Address City/[facility]/ZIP Code Phon e Number [facility] [id number] [place] [address] Osmolality, Urine (06/16/2022 9:32 AM CDT) P athologist Signature Osmolality, U 745 150 - 1150 06/16/2022 DTL mOsm/kg 11:17 AM CDT Specimen Anatomical Collection Method Collection Time Receive d Time (Source) Location / / Volume Laterality Urine 06/16/2022 9:32 AM 2 CDT 10:39 AM CDT Maira Haynes M.D. LAB URINE ORDERABLES Performing Organization Address City/[facility]/ZIP [facility] Phon e Number [facility] - [address] [place] [address] 05 [place] [address] [facility] 200 [facility] pH, Random, Urine (06/16/2022 9:32 AM CDT) P athologist Signature pH, Random, U 5.0 4.5 - 8.0 06/16/2022 DTL 11:17 AM CDT Specimen Anatomical Collection Method Collection Time Receive d Time (Source) Location / / Volume Laterality Urine 06/16/2022 9:32 AM 2 CDT 10:39 AM CDT Maira Haynes M.D. LAB URINE ORDERABLES Performing Organization Address City/[facility] Code Phon e Number [facility] - [address] (ABNORMAL) Microscopic Manual (06/16/2022 9:32 AM [...] M.D. LAB URINE ORDERABLES Performing Organization Address City/[facility]/ZIP Code Phon e Number [facility] - 200 [place], [place] [address] [facility] [address] (ABNORMAL) Urinalysis with Microscopic: Urine, Catheter [...] M.D. LAB URINE ORDERABLES Performing Organization Address City/State/[facility] Code Phon e Number [facility] - 200 [place], [place] [address] [facility] [place] [address] Laboratories-[facility] 200 [facility] Vitamin B12 Assay (06/16/2022 7:31 AM [...] M.D. LAB BLOOD ADD-ON Performing Organization Address City/[facility] Phon e Number [facility] - [address] [place] [address] Hemoglobin A1c (06/16/2022 7:31 AM CDT) P athologist Signature Hemoglobin A1c, 4.9 4.0 - 5.6 06/16/2022 DTL B % 8:13 AM CDT Specimen Anatomical Collection Method Collection Time Receive d Time (Source) Location / / Volume Laterality Blood (Blood, 06/16/2022 7:31 AM 06/16/20 7:51 Venous) CDT AM CDT Kiran Melton M.D. LAB BLOOD ADD-ON Performing Organization Address [facility] Phon e Number [facility] - [address] (ABNORMAL) CBC without Differential (06/16/2022 7:31 [...] [facility] - 200 [place], [place] [address] [facility] [place] [address] Laboratories-[facility] [address] (ABNORMAL) Comprehensive [...] 06/16/2022 DTL Black/ mL/min/BSA 8:22 AM CDT Omani Comment: ----ADDITIONAL INFORMATION---- Estimated GFR calculated [...] Number [facility] - [address] [place] [address] [facility] [place] [address] Laboratories-[facility] 200 [facility] Critical Care (06/15/2022 8:47 PM CDT) [...] life-threatening deterioration of the fo llowing conditions: STONE REPAIRER failure or compromise Critical care was time spent personally by me on the following activities: ordering and review of radiographic stud ies, ordering and review of laboratory studies, discussions with [facility] provider, discussions with consultants, examination of patient, rev iew of old charts and re-evaluation of patient's condition Scooter Tony APRN, C.N.P. PROCEDURE/MINOR SURGICA L ORDERABLES SARS Coronavirus 2, PCR Rapid, V Symptomatic (06/15/2022 7:51 PM CDT) [facility] Method Time Signature SARS CoV-2, Undetected Undetected 06/15/2022 STMA PCR, Rapid, V 8:23 PM CDT Comment: ----ADDITIONAL INFORMATION---- This RT-PCR test was performed using the Tita SARS-CoV-2 and Influenza A/B Reagent assay from [employer], which has received Emergency Use Authori zation(EUA) by the U.S. Food and Drug Administration . Fact sheets for this Emergency Use Autho rization (EUA) assay can be found at the following link s: For Healthcare Providers: https://www.fda.gov/media/975304/downloa d For Patients: https://www.fda.gov/media/323678/downloa d SARS Coronavirus 2, Source, Rapid Swab, Nasopharynx 06/15/2022 7:58 PM CDT STMA Specimen Anatomical Collection Method Collection Time Receive d Time (Source) Location / / Volume Laterality Varies 06/15/2022 7:51 PM 7:58 (Nasopharynx) CDT PM CDT Scooter Tony APRN, Ricky.N.P. LAB MICROBIOLOGY - GENE RAL ORDERABLES Performing Organization Address City/State/ZIP Code Phon e Number [facility] - [address] [place] [address] 05 [place] [address] [facility] 200 [address] [facility] CT Head Neck Angiogram with IV [...] 2H/6H, 5th Gen (06/15/2022 2:48 PM CDT) [facility] Method Time Signature Troponin T, 2 [...] 06/15/20 3:21 Venous) CDT PM CDT Narrative [facility] - [facility] - 06/15/2022 3:54 PM CDT Specimen Information: Specimen ID: [id number] Specimen Type: Blood Specimen Collection Start Date: 06/15/20 ??2:48 PM Specimen Received Date: 06/15/2022 ??3:2 1 PM Specimen ID: [id number] Specimen Type: Blood Specimen Collection Start Date: 06/15/20 ??3:53 PM Specimen Received Date: 06/15/2022 ??3:5 3 PM Demarcus Ernst M.D. LAB BLOOD TROPONIN Performing Organization Address City/State/ZIP Code Phon e Number [facility] - [address] [place] [address] 05 [place] [address] [facility] 200 [facility] DX Hip And Pelvis Left 2-3 [...] Signature Ventricular Rate 58 BPM MUSE ECG/Min PA Interval 154 ms MUSE QRSD Interval 102 ms MUSE QT Interval 442 ms MUSE QTC Interval 433 ms MUSE P Lincoln 48 degrees MUSE R Lincoln -1 degrees MUSE T Wave [place] 38 degrees MUSE Specimen Anatomical Collection Method [...] M.D. LAB BLOOD TROPONIN Performing Organization Address City/[facility] Phon e Number [facility] - [address] [place] [address] 05 [facility] STMA [address] (ABNORMAL) Hepatic Function Panel (06/15/2022 12:37 [...] M.D. LAB BLOOD ADD-ON Performing Organization Address City/[facility] Phon e Number [facility] - [address] [place] [address] 05 [facility] DTL [place], [place] [address] [place] [address] First [facility] Basic Metabolic Panel (06/15/2022 12:36 PM [...] CDT eGFR-Black/Afric >90 >=60 06/15/2022 STMA an Omani mL/min/BSA 1:34 PM CDT Comment: ----ADDITIONAL INFORMATION---- [...] Phon e Number [facility] - [facility] [address] [place], [place] [address] [facility] [place] [address] [facility] [address] (ABNORMAL) CBC with Differential, Blood (06/15/2022 12:36 PM CDT) [facility] Method Time Signature Hemoglobin 10.4 (L) [...] [facility] - 200 [place], [place] [address] 05 [place] [address] [address] Laboratories-[facility] 200 [facility] Prothrombin Time (PT) (06/15/2022 12:34 PM CDT) P athologist Signature Prothrombin 10.2 9.4 - 12.5 06/15/2022 [facility] Time, P sec 1:10 PM CDT INR 0.9 0.9 - 1.1 06/15/2022 [facility] 1:10 PM CDT Comment: ----ADDITIONAL [...] [facility] - 200 [place], [place] [address] 05 [place] [address] Interpretation of Outside CT Spine (06/15/2022 [...] Modality Head, Neuroradiology RST LOS, Neuroradiology ARZ [facility], N/A Computed Tomography Neuroradiology FLA [facility], Other Specimen (Source) Anatomical Collection Method [...] Given 06/17/2022 9:20 AM CDT 1,000 mg dqpknubkeggkt-rzxpefwr-wypuydqnn in Lipoderm Given 06/18/2022 10 :23 AM [...] Given 06/16/2022 9:16 AM CDT 150 mg vgbqkpoedw-wposcmzstcjch-qdxx 50-325-40 mg Given 06/17 6:03 PM CDT [...] 2057 (Given - Provider: Erwin Tello RBrittonNBritton) pgyeyddpjibqd-udmzhqbz-ygeprfjou in Lipoderm 2%-0.5%-2 % cream 1 g [...] Tello R.N.) 1025 (Not Given - Provider: aRquel arguelles RBetsy - Reason: Patient/family refused) 1 [...] Provider: Gini Newberry R.N.)205 (Given - Provider: rEwin Tello R.N.) 1019 (Given - Provider: Raquel [...] Do NOT crush, chew or open capsule. sejwhbbjbv-xdnxxngzcjygg-yend 50-325-40 mg per tablet 1 tablet (ESGIC) 1359 (Given - Provider: Gini Newberry R.N.)2108 (Given - Provider: Rufina Husain R.N.) 1038 (Given - Provider: Kennedi Cabrera APRN, STONE REPAIRER, M.S.N.)1803 (Given - Provider: Gini Newberry R.N.) 1 tablet, oral, Every 6 hours PRN, migraine, Starting on 05/29 at 0107 diphenhydrAMINE-zinc acetate 1 % cream 1 application ( BENADRYL) 1431 (Given - Provider: Gini Newberry R.N.) 1 application, topical, 4 times daily PA N, itching, Starting on Tue06/16/22 at 0306 [...] ( COMPLETED) 1642 (Given - Provider: Sapphire eVrma, MECHANICAL AND AUTO BODY CAR CHECKER, PLUMBING AND HEATING MECHANIC, DNAP) 1 patch, transdermal, Administer over 72 [...] documented as of this encounter Care Teams Registry Nurse Relationship Specialty Start Date End Date Elsewhere, Pcp PCP - General Family Medicine 12/25/21 documented as of this encounter
--- OUTSIDE RECORDS SUMMARY | 2022-09-09 07:55 | XMS_ITS | Encounter Summary ---
:1965 Author Organization [facility] Address [address] [place] [address] Care Team Providers Name Role Phone Elsewhere, Pcp Primary Care Provider Unavailable Encounter Details Date Type Department Care Team Description 05/18/2022 Anesthesia Event RST SEBAS MORAN OR Kaushik Carpenter, [address] [facility] [place] [address] [address] [facility] [phone] [place] [phone] (Wo rk) Anesthesia Record Procedure Summary Procedure [...] h andoff to the receiving staff during [facility] we 1. Identified the patient 2. [...] by Placement Time: 1220 Ihsan Patel APRN, HOME AGENT Ihsan Townsend APRN, (created via procedure HOME AGENT documentation); Mask Ventilation: Easy mask; Type: Standard [...] you attend advent or Patient refused 2021 temple services? Do [...] Procedure Summary Date: 05/18/22 Room / Location: [place] [address] / [facility] in [place], [place] Anesthesia Start: 1214 Anesthesia Stop: 1415 [...] ETT location: oral VL device: glide scope Napoleon scope blade size: 3 Adult tube size: [...] diagnosis: Loose left total shoulder arthroplasty. Location: [place] [address] / [facility] in [place], [place] Providers: Cyrus Polk M.D. 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 The use of blood products not discussed [...] ETT location: oral VL device: glide scope Napoleon scope blade size: 3 Adult tube size: [...] as of this encounter Care Teams Airplane Captain Relationship Specialty Start Date End Date Elsewhere, Pcp PCP - General Family Medicine 12/25/21 documented as of this encounter
--- OUTSIDE RECORDS SUMMARY | 2022-09-09 07:55 | XMS_ITS | Encounter Summary ---
:1965 Author Organization [facility] Address 200 [place] [address] Care Team Providers Name Role Phone Elsewhere, Pcp Primary Care Provider Unavailable Reason for Visit Reason Comments Discharge Planning Discharge Planning Encounter Details Date Type Department Care Team Description 05/06/2022 Clinical Communication Department of Kaushik Portillo Di scharge Planning Orthopedic Surgery R.N. (Discharge in [place] [address] [facility] Planning) [place], [place] [address] [place] [phone] [place], [place] [phone] (Work) [phone] Social History Tobacco Use Types Packs/Day Years [...] you attend worship or Patient refused 2021 temple services? Do [...] home. The role of the caregiver and armored truck driver will be filled by the [...] to her history of falling. I encourage Ortho.Seat Trimmer to contact this patient, prior to surgery, [...] documented as of this encounter Care Teams Haul Truck Driver Relationship Specialty Start Date End Date Elsewhere, Pcp PCP - General Family Medicine 12/25/21 documented as of this encounter
--- OUTSIDE RECORDS SUMMARY | 2022-09-09 07:55 | XMS_ITS | Encounter Summary ---
:1965 Author Organization [facility] Address [address] [place] [address] Care Team Providers Name Role Phone Elsewhere, Pcp Primary Care Provider Unavailable Reason for Visit Reason Comments Pre-visit Intake Encounter Details Date Type Department Care Team Description 05/12/2022 Clinical Communication Department of Cyrus Polk e-visit Intake Orthopedic Surgery Lil[place] Souza in [address] [place] [phone] [place], [place] [phone] (Work) [phone] Social History Tobacco Use Types Packs/Day Years [...] you attend presybeterian or Patient refused 2021 rastafari services? Do [...]
--- OUTSIDE RECORDS SUMMARY | 2022-09-09 07:55 | XMS_ITS | Encounter Summary ---
:1965 Author Organization [facility] Address [address] [place] [address] Care Team Providers Name Role Phone Elsewhere, Pcp Primary Care Provider Unavailable Reason for Referral Outpatient (Routine) - Closed Specialty Diagnoses / Procedures Referred By Contact Refer red To Contact Social Work Diagnoses Pain Shoulder Left Preoperative Exam Jenna Zaldivar [place] M.D. Referral ID Status Reason Start Date Expiration Date Visits Requ ested Visits Authorized [id number] Closed 05/10/2022 05/10/2023 1 1 Reason for Visit Reason Comments Pre-visit Testing Orders Encounter Details Date Type Department Care Team Description 05/07/2022 Clinical Communication Department of Jam, Pre- visit Testing Orthopedic Surgery Cyrus Souza M.D. Orders in [address] [place] [phone] [place], [place] [phone] (Work) [phone] Social History Tobacco Use Types Packs/Day Years [...] you attend muslim or Patient refused 2021 jainism services? Do [...] Diagnoses Order [facility] Social Work - Outpatient Referral Routine Pain Shoulde r Left Expected: General consult Preoperative Exam 022 (clinic) (Approximate), Expires: 08/07/2023 documented as of this encounter Visit Diagnoses Diagnosis Pain Shoulder Left - Primary Preoperative Exam documented in this encounter Additional Health Concerns Assessment Noted Time PHQ-9 Depression Total Score: 16 02/11/2021 12:00 AM C DT documented as of this encounter Care Teams Manager Category Relationship Specialty Start Date End Date Elsewhere, Pcp PCP - General Family Medicine 12/25/21 documented as of this encounter
--- OUTSIDE RECORDS SUMMARY | 2022-09-09 07:55 | XMS_ITS | Encounter Summary ---
:1965 Author Organization [facility] Address [address] [place] [address] Care Team Providers Name Role Phone Elsewhere, Pcp Primary Care Provider Unavailable Encounter Details Date Type Department Care Team Description 04/14/2022 Hospital Encounter Department of Alfredo Herrera Total Shoulder Replacement Status Post Left; Laboratory Medicine A, O.P.A.-C. Painful Total Joint Arthroplasty Initial (HCC) and Pathology, [address] [place] [address], in [place] [phone] [place] [phone] [place] [address] (Work) [place], [place] [phone] (Fax) [phone] Social History Tobacco Use Types Packs/Day Years [...] you attend pentecostalism or Patient refused 2021 latter-day services? Do [...] THC multivit-min/iron/folic/ Take 1 tablet by 0 gur098 (HAIR, SKIN AND mouth daily. NAILS ADVANCED [...] CDT Arthroplasty Initial proc edure are in ([facility]) the results section. C-REACTIVE PROTEIN [...] Kamara LAB BLOOD ADD-ON Performing Organization Address City/State/[facility] Code Phon e Number [facility] - 200 [place], [place] [address] [facility] [place] [address] Laboratories-[facility] 200 [facility] (ABNORMAL) CBC without Differential (04/14/2022 10:42 [...] City/State/ZIP Code Phon e Number [facility] - [address] [place], [place] [address] [facility] [place] [address] Laboratories-[facility] [address] documented in this encounter Visit Diagnoses Diagnosis Arthroplasty Total Shoulder Replacement Status Post Left Painful Total Joint Arthroplasty Initial (HCC) documented in this encounter Additional Health Concerns Assessment Noted Time PHQ-9 Depression Total Score: 16 02/11/2021 12:00 AM C DT documented as of this encounter Care Teams Director Hardware Relationship Specialty Start Date End Date Elsewhere, Pcp PCP - General Family Medicine 12/25/21 documented as of this encounter
--- OUTSIDE RECORDS SUMMARY | 2022-09-09 07:55 | XMS_ITS | Encounter Summary ---
:1965 Author Organization [facility] Address [address] [place] [address] Care Team Providers Name Role Phone Elsewhere, Pcp Primary Care Provider Unavailable Encounter Details Date Type Department Care Team Description 04/21/2022 Clinical Communication Department of Cyrus Polk Orthopedic Surgery in Lilian Souza [place], [place] [address] [place] [address] 200 [place] [phone] Social History Tobacco Use Types Packs/Day Years [...] you attend buddhism or Patient refused 2021 yarsanism services? Do [...] something else is going on . Angie [phone] documented in this encounter Plan of Treatment Not on filedocumented as of this encounter Visit Diagnoses Not on filedocumented in this encounter Additional Health Concerns Assessment Noted Time PHQ-9 Depression Total Score: 16 02/11/2021 12:00 AM C DT documented as of this encounter Care Teams Business Continuity Consultant Relationship Specialty Start Date End Date Elsewhere, Pcp PCP - General Family Medicine 12/25/21 documented as of this encounter
--- OUTSIDE RECORDS SUMMARY | 2022-09-09 07:55 | XMS_ITS | Encounter Summary ---
:1965 Author Organization [facility] Address [address] [place] [address] Care Team Providers Name Role Phone Elsewhere, Pcp Primary Care Provider Unavailable Reason for Visit Outpatient (Routine) - Closed Specialty Diagnoses / Procedures Referred By Contact Refer red To Contact Diagnoses Painful Total Joint Arthroplasty Initial ([facility]) Alfredo Herrera [place] Procedures ORS US-Guided aspiration/injection O.P.A.-C. [address] [place] [phone] Referral ID Status Reason Start Date Expiration Date Visits Requ ested Visits Authorized [id number] Closed 04/02/2022 04/02/2023 1 1 Encounter Details Date Type Department Care Team Description 04/14/2022 Procedure visit Department of Jey Monzon To beto Joint Orthopedic Surgery in [place] Arthroplasty Initial [place], [place] [address] [place] [address] ([facility]) [address] [place] [phone] Social History Tobacco Use Types Packs/Day Years [...] you attend sabianism or Patient refused 2021 zoroastrianism services? Do you belong to any clubs or No 05/17/2022 organizations such as sabianism groups, unions, fraCambridgeSoft or athletic groups, or school groups? How [...] was performed by Carmelo Guo M.D., M.S. ([phone]). HISTORY: The patient was recently evaluated for [...] and sterile ultrasound gel were used. Machine: [employer] Transducer: 6-15 MHz linear transducer. Patient position: [...] Mosquera Barriers to learning: None Preferred language: Khmer Learning preferences include: Seeing and doing. Discussed: [...] preparation: chlorhexidine/alcohol Images have been archived in [employer]: click the 'Dept Filter' button in [employer], then the 'Clear (ShowAll)' button, then OK. [...] procedure a re in the results section. AL ARTHCS ASP/INJ Routine 04/14/2022 9:30 AM Painful Total Aliza nt Results for this MJR JT W US CDT Arthroplasty Initial procedu re are in (HCC) the results section. documented in this encounter Results Bacteria Cult, Aerobe / Anaerobe+Susc (04/14/2022 9:35 AM CDT) Yobongo Method Time Signature Bacteria Cult, No growth 04/28/2022 DTL Aerobe/Anaerob after 14 11:02 AM CDT e+Susc days of incubation. Specimen Anatomical Collection Method Collection Time Receive d Time (Source) Location / / Volume Laterality Synovial Fluid, 04/14/2022 9:35 AM 2021 Left Shoulder CDT 10:18 AM CDT Comment: Specimen Source Site: Aspirate Narrative [facility] - 04/28/2022 11:02 AM CDT Bacterial Culture: Received Bactec aerob ic and Bactec anaerobic bottles Alfredo Kamara LAB MICROBIOLOGY - GENERAL O RDERABLES Performing Organization Address City/State/ZIP Code Phon e Number [facility] - [address] [place] [address] [facility] [place] [address] [facility] 200 [facility] Cell Count and Differential, Body Fluid (04/14/2022 9:35 AM CDT) Yobongo Method Time Signature Fluid Type Right 04/14/2022 [...] Its performance characteri stics were determined by [facility] in a manner co nsistent [...] [facility] [address] [place], [place] [address] [place] [address] Laboratories-[facility] [address] AL ARTHCS ASP/INJ MJR JT W US (04/14/2022 [...] documented as of this encounter Care Teams Bander Hand Relationship Specialty Start Date End Date Elsewhere, Pcp PCP - General Family Medicine 12/25/21 documented as of this encounter
--- OUTSIDE RECORDS SUMMARY | 2022-09-09 07:55 | XMS_ITS | Encounter Summary ---
:1965 Author Organization [facility] Address [address] [place] [address] Care Team Providers Name Role Phone Elsewhere, Pcp Primary Care Provider Unavailable Encounter Details Date Type Department Care Team Description 05/18/2022 Surgery RST SEBAS MORAN OR Cyrus Polk, ARTHROPLASTY REPLACEMENT [address] [facility] [place] [phone] [facility] [phone] [place] [address] Social History Tobacco Use Types Packs/Day Years [...] you attend evangelical or Patient refused 2021 presybeterian services? Do [...] or the highest technical, or vocational p METRIXWAREram degree you have received? Sex Assigned at [...] AM CDT DISCHARGE SUMMARY BRIEF OVERVIEW Hospital: [facility] Discharge Provider: Cyrus Polk M.D. Primary [...] R, M.D. RST ROEI OR DISCHARGE DISPOSITION [facility] [6] ACTIVE ISSUES REQUIRING FOLLOW UP This document serves as a prescription to continue physical therapy, medications, and labs or x-raysif ordered/required. If you have any questions or concerns about surgery or upcoming appointments, please do not hesitateto contact Dr. Polk's office at [phone] during regular business hours (8am-5pm M-F). For emergencies on the weekend or after hours, you may contact Dr. Polk's service via the [facility] chain testing machine operator at [phone]. Details for your 6 week follow-up appointment [...] to: Cyrus Polk MD Dept of Orthopedics [address], [address] None OUTPATIENT FOLLOW UP For appointment details [...] Cyrus Polk M.D.Jenna Zaldivar M.D.Kaushik Cadena M.D. [facility] SEBAS OR Angie Mosquera was [...] THC multivit-min/iron/folic/ Take 1 tablet by 0 [id number] (HAIR, SKIN AND mouth daily. NAILS ADVANCED [...] 6 pm, please page Jam service at [phone] For urgent matters from 6 pm until 6 am, please page Ortho House at [facility] [phone] Jane Nguyen PharmBrittonDBritton, R.Ph. - 05/19/2022 8:12 [...] at this time. Jane Nguyen Pharm.D., R.Ph. [phone] Kaushik Cadena M.D. - 05/19/2022 7:34 AM [...] 6 pm, please page Jam service at [phone] For urgent matters from 6 pm until 6 am, please page Ortho [place] at [facility] [phone] Paco Valentine - 05/18/2022 9:47 AM CDT Encounter: AM Admit Deanna Tradition: No presybeterian affiliation. Ms. Mosquera did not express any spiritual needs at this time. Plan: Will remain available for spiritual care as needed or requested. Chaplains can be contacted bypaging [phone] ([facility]). Rodrigo Preston, Pharm.D., R.Ph. - 05/18/2022 [...] Take 150 mg by mouth every morning. nmaabvfife-kjztygbmrisvk-vnvn (ESGIC) 50-325-40 mg per tablet Past Week [...] 1 spray as needed. 5 mg THC multivit-min/iron/folic/kzb976 (HAIR, SKIN AND NAILS ADVANCED ORAL) Past [...] (HCC) ??? Nicotine Dependence Unspecified ??? Other Unit Supervisor Current Drug Therapy ??? Direct Infection [...] Profile Lives With: Alone Receives Help From: recreation attendant supervisor, Family, Friend(s) ADL Assistance: Required assistance ADL Assistance Comments: Gets help from DIGITAL COLOR PRESS OPERATOR for her bath/shower 3x/week, and for her meals IADL/Homemaking Assistance: Required assistance IADL/Homemaking Assistance Comments: Gets help for housecleaning Driving: Does not drive Driving Comments: takes her cane and medical alert with her. Occupational Role: On disability Occupational Role Comments: Previously worked at a [employer] Prior Mobility/Functional Transfers Level of [place]: Needs assistance Previous Transfer/Mobility Assistance Comments: Patient [...] -[facility] Inpatient Short Form: AM-[facility] [...] Nurse Referral Reason: Discharge Planning Primary Language: Dutch Biofuels Manager Services Used: No Person(s) present during interview: Person(s) Present During Interview: patient History of Present Illness #1 Primary Osteoarthritis Shoulder Left Social History Support System: children, insurance case manager/social scientist, friends/neighbors and home care staff Patient's Home [...] Calm, Oriented Communication: Talks, Understands speaking, Understands Dutch Shopping: Needs assistance Transportation: Support from family Medication Management: Needs assistance Housekeeping: Needs assistance Meal Prep: Needs assistance Managing Finances: Independent Assistive Devices: Grab bars - wall, Eyeglasses Services/Resources: Other (comment) Agency Name: [facility] Services Provided: DIGITAL COLOR PRESS OPERATOR services 3x/week, nurse visits every other week Baseline Services/Resources Primary care clinic and provider: [facility] Phone: Fax: Anticipated Needs Functional Status: Transfer to/from bed, chair, etc., Bathing, Dressing, Grooming/hygeine, Housekeeping, Shopping, Meal preparation, Mobility, Medication set-up/administration, Transportation use (drive car, use taxi/bus) Services/Resources: Other (comment) Agency Name: [facility] Services Provided: DIGITAL COLOR PRESS OPERATOR services 3x/week, nurse visits every other week Transportation Needs: Support from family Does the patient need discharge transport arranged?: No Ride and Caregiver Arranged: Yes Anticipated Discharge Destination: Home-Health Care [facility] ASSESSMENT / PLAN Assessment: The investigations chief met with Angie Mosquera to discuss her current hospitalization and home goingneeds. The patient was unaccompanied. The patient was a reliable historian. The role of investigations chief was reviewed. The patient reviewed her prior level of care and support system. The patient receives support from her son, friends and home care staff. Patient reported her son lives in the same apartment as her. She also stated getting DIGITAL COLOR PRESS OPERATOR services 3x/week and a nurse visits her every other week. The patient described her living environment as a two bedroom apartment. Housekeeping, grocery shopping, meal prep, and other household responsibilities have previously been completed by patient, patient's son and patient's caregiver(s). investigations chief discussed the patient's potential needs at [facility] based on their home setting, previous needs and responsibilities, homebound status, and relevantassessments with the patient. The patient will be safe and supported to return home with [facility] or previous services noted above when medically ready. Support will be provided by son, friends and home care staff. The patient demonstrated understanding when discussing her home going plans and anticipated needs. At this time, the care team anticipates the patient requires the following service(s) to be reconnected: home healthcare. The patient identified the following as their current vendor(s): [facility]. During this visit patient verbalized she is hoping to increase her DIGITAL COLOR PRESS OPERATOR hours and also inq uired about getting a scooter to assist in her mobility. Patient went on to share she is unstable attimes due to her stroke history. She thought perhaps her neurology doctor would be able to help her get a scooter. RN CM recommended she follow up with the [facility] in regards to wanting more DIGITAL COLOR PRESS OPERATOR hours. She was also recommended to follow up with her primary care provider to provide durable medical equipment justification for a scooter, as she is currently hospitalized for orthopedic surgery. Patient verbalized understanding. Patient informed RN ROWAN would be reconnecting her DIGITAL COLOR PRESS OPERATOR services and nurse visits with [facility]. Patient agreeable to RN CM completing this and even provided RN CM the name and contact of her DIGITAL COLOR PRESS OPERATOR and RN. After reviewing the patient's chart and meeting with the patient, the investigations chief deemed the LACE+/readmission questions were not necessary. The patient reports understanding that she will dismiss from the hospital when medically stable. Pending hospital course and medical readiness, no barriers to dismissal have been identified at this time. Plan: Patient to discharge with home health care. [facility] Contact: RAHDA Palomino ATTN: Georgette NURSING: - Complete documentation [...] directive. PRIMARY SERVICE: - Please provide a non-[place] home health order for resumption of previous [...] dismissal will be provided by family. 3. investigations chief recommended reaching out to family, friends, and neighbors for assistance. 4. investigations chief provided information regarding the dismissal process. 5. investigations chief placed or requested the following hospital-based consult orders and/or referrals:None. 6. investigations chief will continue to assess for homegoing needs with the interdisciplinary team. 7. investigations chief encouraged the patient to reach out [...] falls. Patient will discharge to home with [facility] reconnect. Identify possible barriers to meeting goals/advancing plan of care: none End of Shift Summary: Patient stayed on schedule with prn pain meds (Tramadol and oxycodone) throughout the shift. Encouraged using ice packs to help with pain and swelling. Patient's primapore dressing was changed to Aquacell AG and is clean, dry and intact. Patient has baseline numb/tingling, moderate barbering teacher, skin pink and warm with +2 pulses. Patient expects RN from [facility] to visit on Tuesday, May 24. Patient's friend will transport home. Medications including: oxycodone and tramadol were picked up [facility]. documented in this encounter OR Notes Op Note - Cyrus Polk M.D. - 05/18/2022 5:54 PM CDT STAFF: Cyrus Polk M.D. RESIDENT: Jenna Zaldivar M.D. PRE-OPERATIVE DIAGNOSIS Left dislocated reverse arthroplasty. POST-OPERATIVE DIAGNOSIS Left dislocated reverse arthroplasty. A respiratory therapy assistant actively participated and was necessary for [...] glenosphere, placement new humeral stem and tray, [id number] Cyrus Polk M.D. CT CT Job ID: [id number] documented in this encounter Miscellaneous Notes Hospital Course - Kaushik Cadena M.D. - 05/19/2022 12:18 PM CDT Surgery Information This Encounter Past Procedures (05/19/2021 to Today) Date Procedures Providers Location 05/18/2022 ARTHROPLASTY REPLACEMENT TOTAL SHOULDER. Cyrus Polk M.D.Wasserburger, Jory N, M.D.Markos, James R, M.D. [facility] SEBAS OR Angie Mosquera was [...] Code Phon e Number [facility] - [address] [place] [address] [facility] [place] [address] [facility] 200 [facility] (ABNORMAL) CBC with Differential, Blood (05/19/2022 [...] Code Phon e Number [facility] - [address] [place], [place] [address] [facility] [place] [address] [facility] [address] (ABNORMAL) Basic Metabolic [...] 05/19/2022 DTL Black/ mL/min/BSA 4:[address] [place] Comment: ----ADDITIONAL INFORMATION---- Estimated GFR calculated using [...] Code Phon e Number [facility] - [address] [place], [place] [address] [facility] [place] [address] [facility] [address] DX Shoulder [...] Jenna Zaldivar M.D. IMG DIAGNOSTIC IMAGING PROCE [facility] Surgical Pathology, Frozen Lab (05/18/2022 1:04 [...] LAB SURG PATH ORDERABLES Performing Organization Address City/[facility] Phon e Number [facility] - 200 [place], [place] [address] [facility] [place] [address] [facility] 200 [facility] Bacteria Cult, Aerobe / Anaerobe+Susc (05/18/2022 1:03 PM CDT) [facility] gist Method Time Signature Bacteria Cult, No growth 06/01/2022 DT Aerobe/Anaerob after 14 6:02 PM CDT e+Susc days of incubation. Specimen Anatomical Collection Method Collection Time Receive d Time (Source) Location / / Volume Laterality Shoulder, Left 05/18/2022 1:03 PM 022 5:21 CDT PM CDT Comment: Specimen Source Site: Tissue #1 Narrative [facility] - [facility] - 06/01/2022 6:02 PM CDT Bacterial Culture: Placed in Bactec aero bic and Bactec anaerobic bottles Cyrus Polk M.D. LAB MICROBIOLOGY - GENERAL O RDERABLES Performing Organization Address City/[facility]/ZIP Code Phon e Number [facility] - [address] [place], [place] [address] [place], [place] [id number] [place] [address] 200 [facility] Bacteria Cult, Aerobe / Anaerobe+Susc (05/18/2022 [...] Specimen Source Site: Tissue #3 Narrative [facility] - 06/01/2022 6:02 PM CDT Bacterial Culture: Placed in Bactec aero bic and Bactec anaerobic bottles Cyrus Polk M.D. LAB MICROBIOLOGY - GENERAL O MARY Performing Organization Address City/[facility]/ZIP Code Phon e Number [id number] [place] [address] Bacteria Cult, Aerobe / Anaerobe+Susc (05/18/2022 1:03 [...] Specimen Source Site: Tissue #2 Narrative [facility] - 06/01/2022 6:02 PM CDT Bacterial Culture: Placed in Bactec aero bic and Bactec anaerobic bottles Cyrus Polk M.D. LAB MICROBIOLOGY - GENERAL O MARY Performing Organization Address City/[facility] Phon e Number [id number] [place] [address] documented in this encounter Visit Diagnoses Diagnosis [...] 05/19/2022 05/20/2022 acetaminophen tablet 1,000 mg (TYLENOL) 8644 (Given - Provider: Corrie Toscano RBrittonN.)0141 (Given - Provider: Catalina Mccloud RBrittonN.) 0511 (Given - Provider: Catalina Mccloud R.N.)115 (Given - Provider: Isaura Vu RBrittonN.)1725 (Given [...] 1240 (Given - Provider: Ihsan Townsend APRN, INFECTIOUS DISEASE PHYSICIAN) 2,000 mg (rounded from 1,652.5 mg = [...] 1240 (Given - Provider: Ihsan Townsend APRN, [facility]) 1,000 mg (1 g), intravenous, at 300 [...] M.S.N., R.N., O.C.N. - Comment: pt request) 0962 (Given - Provider: Isaura Vu RBetsy) 300 [...] PérezSBetsy, R.N.)0552 (See Alternative - Provider: Jere Lvey R.N.)1004 (See Alternative - Provider: Isaura Vu [...] over 3 days 1 patch (TRANSDERM S STONER HAND) (CANCELED) 1118 (Medication Applied - Provider: Cristy [...] documented as of this encounter Care Teams Tire Spotter Relationship Specialty Start Date End Date Elsewhere, Pcp PCP - General Family Medicine 12/25/21 documented as of this encounter
--- OUTSIDE RECORDS SUMMARY | 2022-09-09 07:55 | XMS_ITS | Encounter Summary ---
:1965 Author Organization [facility] Address [address] [place] [address] Care Team Providers Name Role Phone Elsewhere, Pcp Primary Care Provider Unavailable Reason for Referral MRI/CAT/PET Scan (Routine) - Closed Specialty Diagnoses / Procedures Referred By Contact Refer red To Contact Radiology Diagnoses Painful Total Joint Arthroplasty Initial ([facility]) Alfredo Herrera [facility] [facility] Procedures CT Shoulder Left without IV Contrast O.P.A.-C. [address] [place] [phone] Referral ID Status Reason Start Date Expiration Date Visits Requ ested Visits Authorized [id number] Closed 04/02/2022 04/02/2023 1 1 Reason for Visit MRI/CAT/PET Scan (Routine) - Closed Specialty Diagnoses / Procedures Referred By Contact Refer red To Contact Radiology Diagnoses Painful Total Joint Arthroplasty Initial ([facility]) Alfredo Herrera [facility] [facility] Procedures CT Shoulder Left without IV Contrast O.P.A.-C. [address] [place] [phone] Referral ID Status Reason Start Date Expiration Date Visits Requ ested Visits Authorized [id number] Closed 04/02/2022 04/02/2023 1 1 Encounter Details Date Type Department Care Team Description 04/14/2022 Hospital Encounter Department of Alfredo Herrera Painful Total Joint Radiology, [place] Arthroplasty Initial Building, in [address] [place] [address] ([facility]) [facility] [phone] 200 [facility] [phone] [place], [place] (Work) [phone] Social History Tobacco Use Types Packs/Day Years [...] you attend mandaen or Patient refused 2021 zoroastrian services? Do [...] THC multivit-min/iron/folic/ Take 1 tablet by 0 [id number] (HAIR, SKIN AND mouth daily. NAILS ADVANCED [...]
--- OUTSIDE RECORDS SUMMARY | 2022-09-09 07:55 | XMS_ITS | Encounter Summary ---
:1965 Author Organization [facility] Address [address] [place] [address] Care Team Providers Name Role Phone Elsewhere, Pcp Primary Care Provider Unavailable Reason for Referral Outpatient (Routine) - Closed Specialty Diagnoses / Procedures Referred By Contact Refer red To Contact Orthopedic Surgery Diagnoses Pain Shoulder Left Preoperative [facility] 200 [place] [address] Referral ID Status Reason Start Date Expiration Date Visits Requ ested Visits Authorized [id number] Closed 04/22/2022 04/22/2023 1 1 Reason for Visit Reason Comments pre op orders Encounter Details Date Type Department Care Team Description 04/22/2022 Clinical Communication Department of Cyrus Polk op orders Orthopedic Surgery in [place]ian Souza [place], [place] [address] [place] [address] [place] [phone] Social History Tobacco Use Types Packs/Day Years [...] you attend cheondoism or Patient refused 2021 hinduism services? Do you belong to any clubs or No 05/17/2022 organizations such as cheondoism groups, unions, fraMicrobix Biosystems or athletic groups, or school groups? How [...] 05/17/2022 DTL Black/ mL/min/BSA 12:12 PM CDT Pan[place]ian Comment: ----ADDITIONAL INFORMATION---- Estimated GFR calculated using [...] Code Phon e Number [facility] - [address] [place], [place] [address] [facility] [place] [address] [facility] [address] Type and Screen (with reflex Antibody ID) (05/17/2022 10:50 AM CDT) [facility] Intentive Communications Method Time Signature ABORh A Neg Not 05/17/2022 ETRM applicable 7:10 PM CDT Antibody Negative Negative 05/17/2022 ETRM Screen 7:22 PM CDT Type & Screen 07/15/2022 05/17/2022 ETRM Expiration 23:59 7:10 PM CDT Testing Onia DEFAULT 05/17/2022 ETRM Location 12:24 PM CDT Specimen Anatomical Collection Method Collection Time Receive d Time (Source) Location / / Volume Laterality Blood (Blood, 05/17/2022 10:50 05/17/2022 Venous) AM CDT 12:24 PM CDT Alfredo Kamara LAB BLOOD BANK TEST ORDERABL ES Performing Organization Address City/State/ZIP Code Phon e Number [facility] - 200 [place], [place] [address] [facility] [place] [address] [facility] [address] [facility] (ABNORMAL) CBC with Differential, Blood (05/17/2022 10:50 AM CDT) [facility] [employer] Method Time Signature Hemoglobin 9.2 (L) 11.6 [...] Code Phon e Number [facility] - 200 [place], [place] [address] [facility] [place] [address] [facility] 200 [facility] SARS Coronavirus 2, Molecular Detection, PCR, Varies Asymptomatic (05/17/2022 10:26 AM CDT) [facility] Method Time Signature COVID-19, Swab, 05/17/2022 [...] ----ADDITIONAL INFORMATION---- This RT-PCR test using the Poxel SARS-Co V-2 Assay ( [employer] performed on the Poxel Two Module System has received Emergency Use Authorization (EUA) by the U.S. Food and Drug Administration, and is modified from the aviation consultant's instructions with a bridging study. Performance characteristics were verifie d by [facility] in a manner consistent with CLIA requirements. Visit the CDC website: https://www.cdc.g ov/coronavirus/ for the most recent guidelines on [facility] virus testing. Fact Sheet for Healthcare Providers: https://www.fda.gov/media/649687/downloa d Fact Sheet for Patients: https://www.fda.gov/media/563370/downloa d Specimen Anatomical Collection Method Collection Time Receive d Time (Source) Location / / Volume Laterality Varies 05/17/2022 10:26 05/17/2022 (Nasopharynx) AM CDT 10:52 AM CDT Alfredo Kamara LAB MICROBIOLOGY - GENERAL O RDERABLES Performing Organization Address City/State/ZIP Code Phon e Number [facility] - [address] [place], [place] [address] [facility] [place] [address] [facility] [address] documented in this encounter Visit Diagnoses Diagnosis Pain Shoulder Left - Primary Preoperative Exam documented in this encounter Additional Health Concerns Assessment Noted Time PHQ-9 Depression Total Score: 16 02/11/2021 12:00 AM C DT documented as of this encounter Care Teams Mathematical Engineering Technician Relationship Specialty Start Date End Date Elsewhere, Pcp PCP - General Family Medicine 12/25/21 documented as of this encounter
--- OUTSIDE RECORDS SUMMARY | 2022-09-09 07:55 | XMS_ITS | Encounter Summary ---
:1965 Author Organization [facility] Address [address] [place] [address] Care Team Providers Name Role Phone Elsewhere, Pcp Primary Care Provider Unavailable Encounter Details Date Type Department Care Team Description 05/17/2022 Hospital Encounter Department of Alfredo Herrera Preo perative Exam Laboratory Medicine O.P.A.-C. and Pathology, [place] 200 [facility], in [place], [place] [phone] [place] [address] [place], [place] (Work) [phone] Social History Tobacco Use Types Packs/Day Years [...] you attend islam or Patient refused 2021 moravian services? Do [...] THC multivit-min/iron/folic/ Take 1 tablet by 0 [id number] (HAIR, SKIN AND mouth daily. NAILS ADVANCED [...] CDT Manual Absolute 2.24 1.56 - 05/17/2022 [facility] Neutrophil Count 6.45 1:04 PM CDT x10(9)/L Comment: ----ADDITIONAL INFORMATION---- The manual absolute neutrophil count is derived from a manual differential count and therefore is not exactly comparable to the automated absolute leilani trophil count. Interpretation SeeComment 05/17/2022 1:04 PM CDT D HPM Comment: Hypochromic microcytic red blood cells a re present; consider iron deficiency anemia. Reviewed by: Priti 05/17/2022 1:04 PM CDT [facility] Specimen Anatomical Collection Method Collection Time Receive d Time (Source) Location / / Volume Laterality Blood 05/17/2022 10:50 05/17/2022 AM CDT 11:30 AM CDT Alfredo Kamara LAB BLOOD ADD-ON Performing Organization Address City/State/ZIP Code Phon e Number [facility] - [address] [place], [place] [address] [place] [address] [facility] [address] Basic Metabolic Panel [...] 05/17/2022 DTL Black/ mL/min/BSA 12:12 PM CDT Tunisian Comment: ----ADDITIONAL INFORMATION---- Estimated GFR calculated using [...] [facility] [address] [place], [place] [address] [facility] [place] [address] [facility] [address] Type and Screen (with reflex Antibody ID) (05/17/2022 10:50 AM CDT) [facility] Method Time Signature ABORh A [...] [facility] - [address] [place], [place] [address] [facility] [place] [place] [address] [facility] [address] [facility] (ABNORMAL) CBC with Differential, Blood (05/17/2022 10:50 AM CDT) [facility] bigtincan Method Time Signature Hemoglobin 9.2 (L) 11.6 [...] [facility] [address] [place], [place] [address] [facility] [place] [address] [facility] [address] documented in this encounter Visit Diagnoses Diagnosis Preoperative Exam documented in this encounter Additional Health Concerns Infection Onset Date Last Indicated Resolved Time COVID19 Pending 05/17/2022 05/17/2022 05/17/2022 2:34 PM CDT Assessment Noted Time PHQ-9 Depression Total Score: 16 02/11/2021 12:00 AM C DT documented as of this encounter Care Teams Ethylbenzene Oxidizer Relationship Specialty Start Date End Date Elsewhere, Pcp PCP - General Family Medicine 12/25/21 documented as of this encounter
--- OUTSIDE RECORDS SUMMARY | 2022-09-09 07:55 | XMS_ITS | Encounter Summary ---
:1965 Author Organization [facility] Address [address] [place] [address] Care Team Providers Name Role Phone Elsewhere, Pcp Primary Care Provider Unavailable Reason for Visit Reason Comments pre op orders Encounter Details Date Type Department Care Team Description 04/02/2022 Clinical Communication Department of Cyrus Polk op orders Orthopedic Surgery in [place] Sou[place], [place] [address] [place] [address] 200 [place] [phone] Social History Tobacco Use Types Packs/Day Years [...] you attend advent or Patient refused 2021 denominational services? Do [...] documented as of this encounter Care Teams Cane Flume Chute Operator Relationship Specialty Start Date End Date Elsewhere, Pcp PCP - General Family Medicine 12/25/21 documented as of this encounter
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
--- OUTSIDE RECORDS SUMMARY | 2022-09-09 07:55 | XMS_ITS | Encounter Summary ---
:1965 Author Organization [facility] Address [address] [place] [address] Care Team Providers Name Role Phone Elsewhere, Pcp Primary Care Provider Unavailable Encounter Details Date Type Department Care Team Description 05/11/2022 Clinical Communication Department of Cyrus Polk Orthopedic Surgery in [place] Sou[place], [place] [address] [place] [address] 200 [place] [phone] [phone] Social History Tobacco Use Types Packs/Day Years [...] you attend worship or Patient refused 2021 buddhist services? Do [...] as of this encounter Care Teams Manager Wireless Relationship Specialty Start Date End Date Elsewhere, Pcp PCP - General Family Medicine 12/25/21 documented as of this encounter
--- OUTSIDE RECORDS SUMMARY | 2022-09-09 07:55 | XMS_ITS | Encounter Summary ---
:1965 Author Organization [facility] Address [address] [place] [address] Care Team Providers Name Role Phone Elsewhere, Pcp Primary Care Provider Unavailable Reason for Referral Outpatient (Routine) - Closed Specialty Diagnoses / Procedures Referred By Contact Refer red To Contact Anesthesiology Diagnoses [facility] C.N.Hema, M.S.N. [address] [place] [phone] Referral ID Status Reason Start Date Expiration Date Visits Requ ested Visits Authorized [id number] Closed 04/22/2022 04/22/2023 1 1 Encounter Details Date Type Department Care Team Description 04/22/2022 Orders Only Preoperative Evaluation Shauna Rubin (Primary Dx) Center in [facility], NIKKY C.[place], [place] M.S.N. [address] [place] [address] [place] [phone] [place], [place] [phone] Social History Tobacco Use Types Packs/Day Years [...] you attend buddhism or Patient refused 2021 hindu services? Do [...] 11:47 AM CDT Specimen Information: Specimen ID: [id number] Specimen Type: Blood Specimen Collection Start Date: 10:11 AM Specimen Received Date: 05/03/2022 10:53 AM Specimen ID: [id number] Specimen Type: Blood Specimen Collection Start Date: 2 10:11 AM Specimen Received Date: 05/03/2022 10:53 AM Specimen ID: [id number] Specimen Type: Blood Specimen Collection Start Date: 6/6/202 2 10:11 AM Specimen Received Date: 05/03/2022 10:53 AM Specimen ID: [id number] Specimen Type: Blood Specimen Collection Start Date: 2 10:11 AM Specimen Received Date: 05/03/2022 10:32 AM Specimen ID: [id number] Specimen Type: Blood Specimen Collection Start Date: 2 10:11 AM Specimen Received Date: 05/03/2022 11:44 AM Shauna Rubin APRN C.NCristiana, M.S.N. LAB BLOOD ADD-ON Performing Organization Address City/State/ZIP Code Phon e Number [facility] - [address] [place], [place] [address] [facility] [place] [address] [facility] [address] documented in this encounter Visit Diagnoses Diagnosis Anemia - Primary Anemia documented in this encounter Additional Health Concerns Assessment Noted Time PHQ-9 Depression Total Score: 16 02/11/2021 12:00 AM C DT documented as of this encounter Care Teams Route Sales Representative Relationship Specialty Start Date End Date Elsewhere, Pcp PCP - General Family Medicine 12/25/21 documented as of this encounter
--- OUTSIDE RECORDS SUMMARY | 2022-09-09 07:55 | XMS_ITS | Encounter Summary ---
:1965 Author Organization [facility] Address [address] [place] [address] Care Team Providers Name Role Phone Elsewhere, Pcp Primary Care Provider Unavailable Reason for Visit Outpatient (Routine) - Closed Specialty Diagnoses / Procedures Referred By Contact Refer red To Contact Orthopedic Surgery Diagnoses Pain Shoulder Left Preoperative Exam Alfredo Herrera, [facility] OP.A.-C [address] [place] [address] Referral ID Status Reason Start Date Expiration Date Visits Requ ested Visits Authorized [id number] Closed 04/22/2022 04/22/2023 1 1 Encounter Details Date Type Department Care Team Description 05/17/2022 Office Visit Department of Cyrus Polk, Raul Shou lder Left; Orthopedic Surgery in M.D. Preoperative Exam [place], [place] [address] [facility] [address] [place] [address] [phone] Social History Tobacco Use Types Packs/Day Years [...] you attend adventism or Patient refused 2021 gnosticism services? Do you belong to any clubs or No 05/17/2022 organizations such as adventism groups, unions, fraThomas-Krenn or athletic groups, or school groups? How [...] may involve the use of a medical assistant supervisor made by a [employer] I or one of my partners have collaborated to design, develop, or improve orthopedic implants, instruments, or products. Both the [facility] and the individual surgeons involved receive royalty payments from the use of those specific devices at other institutions, but no royalties or any other payments are paid for the use of those devices with any [facility] patient. The clinical rationale for the use of those devices as well as the availability and applicability of alternative devices was reviewed. He understands that the final decision for the use of a specific medical assistant supervisor often is made at the time of [...] documented as of this encounter Care Teams Lease Buyer Relationship Specialty Start Date End Date Elsewhere, Pcp PCP - General Family Medicine 12/25/21 documented as of this encounter
--- OUTSIDE RECORDS SUMMARY | 2022-09-09 07:55 | XMS_ITS | Encounter Summary ---
:1965 Author Organization [facility] Address [address] [place] [address] Care Team Providers Name Role Phone Elsewhere, Pcp Primary Care Provider Unavailable Encounter Details Date Type Department Care Team Description 05/03/2022 Hospital Encounter Department of Laboratory Shauna Rubin, Anemia Medicine and Pathology, [facility] in M.S.N. [address] [place] [phone] (Wo rk) Social History Tobacco Use Types [...] you attend pentecostal or Patient refused 2021 hinduism services? Do [...] THC multivit-min/iron/folic/ Take 1 tablet by 0 [id number] (HAIR, SKIN AND mouth daily. NAILS ADVANCED [...] Venous) AM CDT 10:53 AM CDT Narrative [facility] - 05/03/2022 11:47 AM CDT Specimen Information: Specimen ID: [id number] Specimen Type: Blood Specimen Collection Start Date: 10:11 AM Specimen Received Date: 05/03/2022 10:53 AM Specimen ID: [id number] Specimen Type: Blood Specimen Collection Start Date: 10:11 AM Specimen Received Date: 05/03/2022 10:53 AM Specimen ID: [id number] Specimen Type: Blood Specimen Collection Start Date: 10:11 AM Specimen Received Date: 05/03/2022 10:53 AM Specimen ID: [id number] Specimen Type: Blood Specimen Collection Start Date: 2 10:11 AM Specimen Received Date: 05/03/2022 10:32 AM Specimen ID: [id number] Specimen Type: Blood Specimen Collection Start Date: 2 10:11 AM Specimen Received Date: 05/03/2022 11:44 AM Shauna Rubin APRN C.N.P., M.S.N. LAB BLOOD ADD-ON Performing Organization Address City/State/ZIP Code Phon e Number [facility] - [address] [place], [place] [address] [facility] [place] [address] [facility] [address] documented in this encounter Visit Diagnoses Diagnosis Anemia documented in this encounter Additional Health Concerns Assessment Noted Time PHQ-9 Depression Total Score: 16 02/11/2021 12:00 AM C DT documented as of this encounter Care Teams Smash Hand Relationship Specialty Start Date End Date Elsewhere, Pcp PCP - General Family Medicine 12/25/21 documented as of this encounter
--- OUTSIDE RECORDS SUMMARY | 2022-09-09 07:55 | XMS_ITS | Encounter Summary ---
:1965 Author Organization [facility] Address [address] [place] [address] Care Team Providers Name Role Phone Elsewhere, Pcp Primary Care Provider Unavailable Reason for Visit Outpatient (Routine) - Closed Specialty Diagnoses / Procedures Referred By Contact Refer red To Contact Anesthesiology Diagnoses Anemia Shauna Rubin APRN, [facility] C.N.P., M.S.N. [address] [place] [phone] Referral ID Status Reason Start Date Expiration Date Visits Requ ested Visits Authorized [id number] Closed 04/22/2022 04/22/2023 1 1 Encounter Details Date Type Department Care Team Description 05/03/2022 Comprehensive Visit Preoperative Evaluation Shauna Gomez, NIKKY, C.N.P., M.S.N. [address] [place] [address] [phone] [facility] in [place], Peter Tse R.N. [address] [place] [phone] [place] [address] [place] [phone] Social History Tobacco Use Types Packs/Day [...] you attend episcopal or Patient refused 2021 temple services? Do [...] iron in the past when living in [place] (approximately 5-6 years ago). Therapy Plan: With the planned ARTHROPLASTY REPLACEMENT TOTAL SHOULDER on 05/18/2022 the patient would meet criteria based on the Preoperative Anemia Treatment Algorithm and RN Anemia Protocol to receive 1 x 1,000 mgdose of IV iron dextran. Patient agrees with this and would like this administered @ [facility]. I provided the patient with the education pamphlet [id number] Treating Anemia Before Surgery andanswered her questions [...] as of this encounter Care Teams Top Installer Relationship Specialty Start Date End Date Elsewhere, Pcp PCP - General Family Medicine 12/25/21 documented as of this encounter
--- OUTSIDE RECORDS SUMMARY | 2022-09-09 07:56 | XMS_ITS | Encounter Summary ---
:1965 Author Organization [facility] Address [address] [place] [address] Care Team Providers Name Role Phone Elsewhere, Pcp Primary Care Provider Unavailable Reason for Referral Outpatient (Routine) - Closed Specialty Diagnoses / Procedures Referred By Contact Refer red To Contact Diagnoses Arthroplasty Total Shoulder Replacement Status Post Left Alfredo Herrera O.P.A.-C. [facility] Procedures DX Shoulder Left Ingrowth Series 5 Views [address] [place] [phone] Referral ID Status Reason Start Date Expiration Date Visits Requ ested Visits Authorized [id number] Closed 02/25/2022 02/25/2023 1 1 Reason for Visit Outpatient (Routine) - Closed Specialty Diagnoses / Procedures Referred By Contact Refer red To Contact Diagnoses Arthroplasty Total Shoulder Replacement Status Post Left Alfredo Herrera O.P.A.-C. [facility] Procedures DX Shoulder Left Ingrowth Series 5 Views [address] [place] [phone] Referral ID Status Reason Start Date Expiration Date Visits Requ ested Visits Authorized [id number] Closed 02/25/2022 02/25/2023 1 1 Encounter Details Date Type Department Care Team Description 04/02/2022 Hospital Encounter Department of Alfredo Herrera Total Radiology, Anh Gonzales Shoulder Replacement [facility], in [address] [place] [address] Status Post Left [facility] [address] [place], [place] (Work) [address] [phone] Social History Tobacco Use Types Packs/Day Years [...] you attend islam or Patient refused 2021 cheondoism services? Do [...] THC multivit-min/iron/folic/ Take 1 tablet by 0 [id number] (HAIR, SKIN AND mouth daily. NAILS ADVANCED [...] documented as of this encounter Care Teams Electroplating Technician Relationship Specialty Start Date End Date Elsewhere, Pcp PCP - General Family Medicine 12/25/21 documented as of this encounter
--- OUTSIDE RECORDS SUMMARY | 2022-09-09 07:56 | XMS_ITS | Encounter Summary ---
:1965 Author Organization [facility] Address [address] [place] [address] Care Team Providers Name Role Phone Elsewhere, Pcp Primary Care Provider Unavailable Encounter Details Date Type Department Care Team Description 03/03/2022 Orders Only Pharmacy Prior Auth Yady Lebron [phone] Social History Tobacco Use Types Packs/Day Years [...] documented as of this encounter Care Teams Aerial Installer Relationship Specialty Start Date End Date Elsewhere, Pcp PCP - General Family Medicine 12/25/21 documented as of this encounter
--- OUTSIDE RECORDS SUMMARY | 2022-09-09 07:56 | XMS_ITS | Encounter Summary ---
:1965 Author Organization [facility] Address [address] [place] [address] Care Team Providers Name Role Phone Elsewhere, Pcp Primary Care Provider Unavailable Encounter Details Date Type Department Care Team Description 03/08/2022 Documentation Department of Orthopedic Melissa Mcdonald M.D. Surgery in [place], [place] [address] [place] [phone] Social History Tobacco Use [...] attend oriental orthodox or Patient refused 2021 muslim services? Do [...] documented as of this encounter Care Teams Cleaner Signs Relationship Specialty Start Date End Date Elsewhere, Pcp PCP - General Family Medicine 12/25/21 documented as of this encounter
--- OUTSIDE RECORDS SUMMARY | 2022-09-09 07:56 | XMS_ITS | Encounter Summary ---
:1965 Author Organization [facility] Address [address] [place] [address] Care Team Providers Name Role Phone Elsewhere, Pcp Primary Care Provider Unavailable Encounter Details Date Type Department Care Team Description 03/05/2022 Clinical Communication Pharmacy Prior Auth Ben Chino RO M.D. [phone] Social History Tobacco Use Types Packs/Day Years [...] you attend mormonism or Patient refused 2021 mandaen services? Do [...] documented as of this encounter Care Teams Forensic Sergeant Relationship Specialty Start Date End Date Elsewhere, Pcp PCP - General Family Medicine 12/25/21 documented as of this encounter
--- OUTSIDE RECORDS SUMMARY | 2022-09-09 07:56 | XMS_ITS | Encounter Summary ---
:1965 Author Organization [facility] Address [address] [place] [address] Care Team Providers Name Role Phone Elsewhere, Pcp Primary Care Provider Unavailable Encounter Details Date Type Department Care Team Description 03/12/2022 Orders Only Department of Melissa Mdconald Arthroplas ty Total Orthopedic Surgery in M.D. Should er Replacement [place], [place] Status Post Left [address] [facility] (Primary [place]x) [place] [address] Social History Tobacco Use Types [...] you attend yarsani or Patient refused 2021 sabianist services? Do [...] documented as of this encounter Care Teams Varying Exceptionalities Teacher Relationship Specialty Start Date End Date Elsewhere, Pcp PCP - General Family Medicine 12/25/21 documented as of this encounter
--- OUTSIDE RECORDS SUMMARY | 2022-09-09 07:56 | XMS_ITS | Encounter Summary ---
:1965 Author Organization [facility] Address [address] [place] [address] Care Team Providers Name Role Phone Elsewhere, Pcp Primary Care Provider Unavailable Reason for Referral Medication Prior Authorization - Denied Specialty Diagnoses / Procedures Referred By Contact Refer red To Contact Michael Chino M.D. Referral ID Status Reason Start Date Expiration Date Visits Requ ested Visits Authorized [id number] Denied 1 1 Encounter Details Date Type Department Care Team Description 02/26/2022 - Hospital Encounter [facility] Jam, Shoulder Joint Disorder Left; 02/27/2022 Hospital, Yazidism Cyrus Souza M.D. Pain Shoulder Left [facility] [address] [facility] [place], [place] Floor [address] [address] [facility] [phone] [place], [place] (Work) [address] Social History Tobacco Use [...] you attend mormonism or Patient refused 2021 judaism services? Do you belong to any clubs or No 05/17/2022 organizations such as mormonism groups, [employer], [employer] or athletic groups, or school groups? How [...] THC multivit-min/iron/folic/ Take 1 tablet by 0 [id number] (HAIR, SKIN AND mouth daily. NAILS ADVANCED [...] - 02/27/2022 8:05 AM CDT Orthopedic Service: [facility] Admission Day: 02/26/2022 SUBJECTIVE POD1. [...] 1 Obesity (BMI 30 to <35). stable Nayva [place] M.D. For any questions or concerns from 6 am until 6 pm, please page the [facility] pager at [phone] For urgent matters from 6 pm until 6 am, please page [facility] at [phone] Michael Chino M.D. - 02/26/2022 3:03 PM [...] am until 6 pm, please page the [facility] pager at [phone] For urgent matters from 6 pm until 6 am, please page [facility] at [phone] Clemente Buck, Pharm.D., R.Ph. - 02/26/2022 9:17 [...] Take 150 mg by mouth every morning. vflccuzfoe-hsezeemvtgavz-bccw (ESGIC) 50-325-40 mg per tablet Past Week [...] 1 spray as needed. 5 mg THC multivit-min/iron/folic/pui209 (HAIR, SKIN AND NAILS ADVANCED ORAL) 02/25/2022 [...] (HCC) ??? Nicotine Dependence Unspecified ??? Other Occupational Health Technician Current Drug Therapy ??? Direct Infection Of [...] Right Lives With: Alone Receives Help From: crib attendant, Family, Friend(s) ADL Assistance: Required assistance ADL Assistance Comments: Gets help from [employer] for her bath/shower and for her meals IADL/Homemaking Assistance: Required assistance IADL/Homemaking Assistance Comments: Gets help for housecleaning Driving: Independent Driving Comments: takes her cane and medical alert with her. Occupational Role: On disability Occupational Role Comments: Previously worked at a [employer] and [employer] Prior Mobility/Functional Transfers Level of [place]: Modified independent Previous Transfer/Mobility Assistance Comments: Patient [...] mask during therapy session: yes Outcome Measures [facility] Inpatient Short Form: [facility] Basic Mobility (V.2) How much [...] Standardized Score: 57.68 Interpretation: Clinicians answer the [facility] Inpatient Short Form based on [...] Prescriptions were sent and filled at the [facility] pharmacy. Catalina Mccloud R.N. - 02/27/2022 [...] be placed with approximately 70% contact with [place] bone. The more superior aspect of the [...] of antibiotic spacer, implantation of reverse arthroplasty, [id number] Cyrus Polk M.D. CT CT Job ID: [id number] documented in this encounter Plan of Treatment [...] [facility] Code Phon e Number [facility] - [address] [place], [place] [address] [facility] [place] [address] [facility] 200 [facility] (ABNORMAL) Basic Metabolic Panel (02/26/2022 3:47 PM [...] 02/26/2022 DTL Black/ mL/min/BSA 6:27 PM CDT Salvadorean Comment: ----ADDITIONAL INFORMATION---- Estimated GFR calculated using [...] [facility] [address] [place], [place] [address] [facility] [place] [address] [facility] 200 [facility] (ABNORMAL) CBC with Differential, Blood (02/26/2022 3:47 PM CDT) [facility] Method Time Signature Hemoglobin 8.8 (L) [...] [facility] - [address] [place] [address] [facility] [place] [address] [facility] 200 [facility] DX Shoulder Left 1 View (02/26/2022 2:47 [...] Aerobe / Anaerobe+Susc (02/26/2022 1:00 PM CDT) [facility] Method Time Signature Bacteria Cult, No growth 03/12/2022 DTL Aerobe/Anaerob after 14 2:02 PM CDT e+Susc days of incubation. Specimen Anatomical Collection Method Collection Time Receive d Time (Source) Location / / Volume Laterality Shoulder, Left 02/26/2022 1:00 PM 022 1:41 CDT PM CDT Comment: Specimen Source Site: Tissue 1 Narrative [facility] - 03/12/2022 2:02 PM CDT Bacterial Culture: Placed in Bactec aero bic and Bactec anaerobic bottles Cyrus Polk M.D. LAB MICROBIOLOGY - GENERAL O MARY Performing Organization Address City/[facility] Phon e Number [facility] - [address] Bacteria Cult, Aerobe / Anaerobe+Susc (02/26/2022 1:00 PM CDT) [facility] Method [place] Signature Bacteria Cult, No growth 03/12/2022 DTL Aerobe/Anaerob after 14 2:02 PM CDT e+Susc days of incubation. Specimen Anatomical Collection Method Collection Time Receive d Time (Source) Location / / Volume Laterality Shoulder, Left 02/26/2022 1:00 PM 022 1:38 CDT PM CDT Comment: Specimen Source Site: Tissue 3 Narrative [facility] - 03/12/2022 2:02 PM CDT Bacterial Culture: Placed in Bactec aero bic and Bactec anaerobic bottles Cyrus Polk M.D. LAB MICROBIOLOGY - GENERAL O MARY Performing Organization Address City/[facility] Phon e Number [facility] - [address] [place], [place] [address] [facility] [place] [address] [place] [address] Bacteria Cult, Aerobe / Anaerobe+Susc (02/26/2022 1:00 PM CDT) Patholo gist Method Time Signature Bacteria Cult, No growth 03/12/2022 DTL Aerobe/Anaerob after 14 2:02 PM CDT e+Susc days of incubation. Specimen Anatomical Collection Method Collection Time Receive d Time (Source) Location / / Volume Laterality Shoulder, Left 02/26/2022 1:00 PM 022 1:36 CDT PM CDT Comment: Specimen Source Site: Tissue 2 Narrative [facility] - [facility] - 03/12/2022 2:02 PM CDT Bacterial Culture: Placed in Bactec aero bic and Bactec anaerobic bottles Cyrus Polk M.D. LAB MICROBIOLOGY - GENERAL O RDERABLES Performing Organization Address City/State/ZIP Code Phon e Number [facility] - [address] [place] [address] [facility] [place] [address] [facility] 200 [facility] Surgical Pathology, Frozen Lab (02/26/2022 1:00 PM [...] permanent sections. ??Grossed by Nan Ledezma M.S., PA([facility]). Block Summary A Left shoulder 03/01/2022 METH [...] SURG PATH ORDERABLES Performing Organization Address City/State/[facility] Code Phon e Number [facility] - [address] [place], [place] [address] [facility] [place] [address] [facility] mg of calcium, oral, Every 2 hour AK N, indigestion, Starting on Tue02/26/22 at 1451, [...] documented as of this encounter Care Teams Compound Finisher Relationship Specialty Start Date End Date Elsewhere, Pcp PCP - General Family Medicine 12/25/21 documented as of this encounter
--- OUTSIDE RECORDS SUMMARY | 2022-09-09 07:56 | XMS_ITS | Encounter Summary ---
:1965 Author Organization [facility] Address [address] [place] [address] Care Team Providers Name Role Phone Elsewhere, Pcp Primary Care Provider Unavailable Encounter Details Date Type Department Care Team Description 03/11/2022 Documentation Department of Orthopedic Melissa Mcdonald M.D. Surgery in [place], [place] [address] [place] [address] Social History Tobacco Use [...] you attend buddhist or Patient refused 2021 pentecostalism services? Do [...] Mr. 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
--- OUTSIDE RECORDS SUMMARY | 2022-09-09 07:56 | XMS_ITS | Encounter Summary ---
:1965 Author Organization [facility] Address [address] [place] [address] Care Team Providers Name Role Phone Elsewhere, Pcp Primary Care Provider Unavailable Encounter Details Date Type Department Care Team Description 03/05/2022 Orders Only Pharmacy Prior Auth RO Elsewhere, Pcp [phone] Social History Tobacco Use Types Packs/Day Years [...] you attend restorationist or Patient refused 2021 rastafarian services? Do [...] documented as of this encounter Care Teams Distribution Superintendent Relationship Specialty Start Date End Date Elsewhere, Pcp PCP - General Family Medicine 12/25/21 documented as of this encounter
--- OUTSIDE RECORDS SUMMARY | 2022-09-09 07:56 | XMS_ITS | Encounter Summary ---
:1965 Author Organization [facility] Address [address] [place] [address] Care Team Providers Name Role Phone Elsewhere, Pcp Primary Care Provider Unavailable Encounter Details Date Type Department Care Team Description 03/03/2022 Orders Only Pharmacy Prior Auth Usha Maurer [phone] Social History Tobacco Use Types Packs/Day Years [...] you attend sabianism or Patient refused 2021 zoroastrian services? Do [...] documented as of this encounter Care Teams Sheep Sorter Relationship Specialty Start Date End Date Elsewhere, Pcp PCP - General Family Medicine 12/25/21 documented as of this encounter
--- OUTSIDE RECORDS SUMMARY | 2022-09-09 07:56 | XMS_ITS | Encounter Summary ---
:1965 Author Organization [facility] Address [address] [place] [address] Care Team Providers Name Role Phone Elsewhere, Pcp Primary Care Provider Unavailable Reason for Visit Reason Comments Med Refill Encounter Details Date Type Department Care Team Description 03/02/2022 Refill Division of [facility] Vega M.D. Med Refill Internal Medicine, [place] [address] [address] [facility] [place] [address] [place] [address] [place] [address] [place] [address] Social History Tobacco Use [...] documented as of this encounter Care Teams Beach Expert Relationship Specialty Start Date End Date Elsewhere, Pcp PCP - General Family Medicine 12/25/21 documented as of this encounter
--- OUTSIDE RECORDS SUMMARY | 2022-09-09 07:56 | XMS_ITS | Encounter Summary ---
:1965 Author Organization [facility] Address [address] [place] [address] Care Team Providers Name Role Phone Elsewhere, Pcp Primary Care Provider Unavailable Encounter Details Date Type Department Care Team Description 03/16/2022 Clinical Communication Department of Cyrus Polk Orthopedic Surgery in Lilian Souza [place], [place] [address] [place] [address] 200 [place] [address] [phone] Social History Tobacco Use Types Packs/Day Years [...] you attend methodist or Patient refused 2021 nondenominational services? Do [...] - 03/16/2022 12:15 PM CDT Michael, patient's rn field case manager from [facility], is calling hoping to speak to someone on Dr. Polk's surgical team to ensure that the patient is receiving the correct post-op care. Patient is set up for post op appointments at the beginning of March here. However, Michael is looking to speak to someone over the phone to ensure the patient is on the right track. Please call [phone]. Thank you. documented in this encounter Plan of Treatment Not on filedocumented as of this encounter Visit Diagnoses Not on filedocumented in this encounter Additional Health Concerns Assessment Noted Time PHQ-9 Depression Total Score: 16 02/11/2021 12:00 AM C DT documented as of this encounter Care Teams Pet Store Merchandiser Relationship Specialty Start Date End Date Elsewhere, Pcp PCP - General Family Medicine 12/25/21 documented as of this encounter
--- OUTSIDE RECORDS SUMMARY | 2022-09-09 07:56 | XMS_ITS | Encounter Summary ---
:1965 Author Organization [facility] Address [address] [place] [address] Care Team Providers Name Role Phone Elsewhere, Pcp Primary Care Provider Unavailable Encounter Details Date Type Department Care Team Description 03/02/2022 Orders Only Pharmacy Prior Auth Brooklyn Frias [phone] Social History Tobacco Use Types Packs/Day Years [...] you attend bahai or Patient refused 2021 anabaptist services? Do [...] as of this encounter Care Teams Supervisor Histology Relationship Specialty Start Date End Date Elsewhere, Pcp PCP - General Family Medicine 12/25/21 documented as of this encounter
--- OUTSIDE RECORDS SUMMARY | 2022-09-09 07:56 | XMS_ITS | Encounter Summary ---
:1965 Author Organization [facility] Address [address] [place] [address] Care Team Providers Name Role Phone Elsewhere, Pcp Primary Care Provider Unavailable Encounter Details Date Type Department Care Team Description 03/08/2022 Orders Only Department of Orthopedic Melissa Mcdonald M.D. Surgery in [place], [place] [address] [place] [address] Social History Tobacco Use [...] as of this encounter Care Teams Geological E Logger Relationship Specialty Start Date End Date Elsewhere, Pcp PCP - General Family Medicine 12/25/21 documented as of this encounter
--- OUTSIDE RECORDS SUMMARY | 2022-09-09 07:56 | XMS_ITS | Encounter Summary ---
:1965 Author Organization [facility] Address [address] [place] [address] Care Team Providers Name Role Phone Elsewhere, Pcp Primary Care Provider Unavailable Reason for Visit Reason Comments Medication Problem Encounter Details Date Type Department Care Team Description 03/01/2022 Clinical Communication Department of Jose Polk Orthopedic Surgery Cyrus Souza M.D. in [place], [facility] [place], [place] [address] [place] [address] [place], [place] [phone] [address] (Work) [phone] Social History Tobacco Use Types Packs/Day Years [...] you attend cheondoism or Patient refused 2021 methodist services? Do [...] 12:04 PM CDT PIPER. Received fax from [employer] 03-03-22 indicating the doxycycline [facility] 100 mg tab is approved through 11/27/2022. Telephone Encounter - Cyrus Polk M.D. - 03/02/2022 7:45 AM CDT Please see below Thank you Telephone Encounter - Radha Suh - 03/01/2022 3:36 PM CDT Regina, pharmacist working for the insurance company calls regarding the doxycycline hyclate (DORYX) 100 mg EC tablet [[id number]] Script. This is not in their formulary. She has several questions to ask to consider approving this. Please call Regina back [phone], ext [phone] Reference # [id number] documented in this encounter Plan of Treatment Not on filedocumented as of this encounter Visit Diagnoses Not on filedocumented in this encounter Additional Health Concerns Assessment Noted Time PHQ-9 Depression Total Score: 16 02/11/2021 12:00 AM C DT documented as of this encounter Care Teams Sample Preparation Supervisor Relationship Specialty Start Date End Date Elsewhere, Pcp PCP - General Family Medicine 12/25/21 documented as of this encounter
--- OUTSIDE RECORDS SUMMARY | 2022-09-09 07:56 | XMS_ITS | Encounter Summary ---
:1965 Author Organization [facility] Address [address] [place] [address] Care Team Providers Name Role Phone Elsewhere, Pcp Primary Care Provider Unavailable Reason for Referral Outpatient (Routine) - Closed Specialty Diagnoses / Procedures Referred By Contact Refer red To Contact Diagnoses Painful Total Joint Arthroplasty Initial (HCC) Alfredo Herrera [place] Procedures ORS US-Guided aspiration/injection [facility].P.[facility]C. [address] [place] [address] Referral ID Status Reason Start Date Expiration Date Visits Requ ested Visits Authorized [id number] Closed 04/02/2022 04/02/2023 1 1 MRI/CAT/PET Scan (Routine) - Closed Specialty Diagnoses / Procedures Referred By Contact Refer red To Contact Radiology Diagnoses Painful Total Joint Arthroplasty Initial ([facility]) Alfredo Herrera [place] Procedures CT Shoulder Left without IV Contrast [facility] [address] [place] [address] Referral ID Status Reason Start Date Expiration Date Visits Requ ested Visits Authorized [id number] Closed 04/02/2022 04/02/2023 1 1 Reason for Visit Outpatient (Routine) - Closed Specialty Diagnoses / Procedures Referred By Contact Refer red To Contact Orthopedic Surgery Diagnoses Arthroplasty Total Shoulder Replacement Status Post Left Alfredo Herrera [place] [facility] [address] [place] [address] Referral ID Status Reason Start Date Expiration Date Visits Requ ested Visits Authorized [id number] Closed 02/25/2022 02/25/2023 1 1 Encounter Details Date Type Department Care Team Description 04/02/2022 Office Visit Department of Cyrus Polk Arthroplasty Total Shoulder Replacement Status Post Left; Orthopedic Surgery in [place] Painful Total Joint Arthroplasty Initial (HCC) [place], [place] [address] [facility] [address] [place] [phone] Social History Tobacco Use Types Packs/Day Years [...] Cyrus Polk M.D. CT CT Job ID: [id number] documented in this encounter Plan of Treatment [...] Organization Address City/State/ZIP Code Phon e Number [facility] - [address] [place] [address] [facility] [place] [address] [facility] 200 [facility] (ABNORMAL) CBC without Differential (04/14/2022 10:42 AM CDT) [facility] Method Time Signature Hemoglobin 8.6 [...] Organization Address City/State/ZIP Code Phon e Number [facility] - [address] [place], [place] [address] [facility] [place] [address] [facility] [address] ARTHCS ASP/INJ MJR JT W US (04/14/2022 [...] documented as of this encounter Care Teams Wholesale Loan Processor Relationship Specialty Start Date End Date Elsewhere, Pcp PCP - General Family Medicine 12/25/21 documented as of this encounter
--- OUTSIDE RECORDS SUMMARY | 2022-09-09 07:56 | XMS_ITS | Encounter Summary ---
:1965 Author Organization [facility] Address [address] [place] [address] Care Team Providers Name Role Phone Elsewhere, Pcp Primary Care Provider Unavailable Encounter Details Date Type Department Care Team Description 03/19/2022 Clinical Communication Department of Cyrus Polk Orthopedic Surgery in [place] Souza [place], [place] [address] [place] [address] 200 [place] [address] [phone] Social History Tobacco Use Types Packs/Day Years [...] you attend jainism or Patient refused 2021 islam services? Do [...] discussed this situation with the O.R. supervisor special education, the A.M. admission Trade Mark Examiner, and the Outpatient Trade Mark Examiner and no one can locate this remote [...] Please return a call to her at [phone] documented in this encounter Plan of Treatment Not on filedocumented as of this encounter Visit Diagnoses Not on filedocumented in this encounter Additional Health Concerns Assessment Noted Time PHQ-9 Depression Total Score: 16 02/11/2021 12:00 AM C DT documented as of this encounter Care Teams Rate Marker Relationship Specialty Start Date End Date Elsewhere, Pcp PCP - General Family Medicine 12/25/21 documented as of this encounter
--- OUTSIDE RECORDS SUMMARY | 2022-09-09 07:56 | XMS_ITS | Encounter Summary ---
:1965 Author Organization [facility] Address [address] [place] [address] Care Team Providers Name Role Phone Elsewhere, Pcp Primary Care Provider Unavailable Reason for Visit Reason Comments Communication Encounter Details Date Type Department Care Team Description 03/11/2022 Clinical Communication Department of Cyrus Polk mmunication Orthopedic Surgery in [place] Sou[place], [place] [address] [place] [address] 200 [place] [address] [phone] Social History Tobacco Use Types Packs/Day Years [...] you attend yarsani or Patient refused 2021 amish services? Do [...] and cannot afford any to drive to [place] and continuous pickling line pickler new sl[place]. Telephone Encounter - Radha Suh [...] documented as of this encounter Care Teams Operational Intelligence Officer Relationship Specialty Start Date End Date Elsewhere, Pcp PCP - General Family Medicine 12/25/21 documented as of this encounter
--- OUTSIDE RECORDS SUMMARY | 2022-09-09 07:56 | XMS_ITS | Encounter Summary ---
:1965 Author Organization [facility] Address [address] [place] [address] Care Team Providers Name Role Phone Elsewhere, Pcp Primary Care Provider Unavailable Encounter Details Date Type Department Care Team Description 03/03/2022 Orders Only Pharmacy Prior Auth Ana Rosa Ying [phone] Social History Tobacco Use Types Packs/Day Years [...] you attend orthodox or Patient refused 2021 scientologist services? Do [...] as of this encounter Care Teams Automotive Quality Manager Relationship Specialty Start Date End Date Elsewhere, Pcp PCP - General Family Medicine 12/25/21 documented as of this encounter
--- OUTSIDE RECORDS SUMMARY | 2022-09-09 07:56 | XMS_ITS | Encounter Summary ---
:1965 Author Organization [facility] Address [address] [place] [address] Care Team Providers Name Role Phone Elsewhere, Pcp Primary Care Provider Unavailable Encounter Details Date Type Department Care Team Description 03/08/2022 Orders Only Department of Orthopedic Melissa Mcdonald M.D. Surgery in [place], [place] [address] [place] [address] Social History Tobacco Use [...] you attend worship or Patient refused 2021 voodoo services? Do [...] as of this encounter Care Teams Airplane And Engine Inspector Relationship Specialty Start Date End Date Elsewhere, Pcp PCP - General Family Medicine 12/25/21 documented as of this encounter
--- OUTSIDE RECORDS SUMMARY | 2022-09-09 07:56 | XMS_ITS | Encounter Summary ---
:1965 Author Organization [facility] Address [address] [place] [address] Care Team Providers Name Role Phone Elsewhere, Pcp Primary Care Provider Unavailable Encounter Details Date Type Department Care Team Description 03/02/2022 Orders Only Pharmacy Prior Auth Sarmad Solano [phone] Social History Tobacco Use Types Packs/Day Years [...] documented as of this encounter Care Teams Rose Grower Relationship Specialty Start Date End Date Elsewhere, Pcp PCP - General Family Medicine 12/25/21 documented as of this encounter
--- OUTSIDE RECORDS SUMMARY | 2022-09-09 07:56 | XMS_ITS | Encounter Summary ---
:1965 Author Organization [facility] Address [address] [place] [address] Care Team Providers Name Role Phone Elsewhere, Pcp Primary Care Provider Unavailable Encounter Details Date Type Department Care Team Description 03/02/2022 Orders Only Pharmacy Prior Auth Ana Rosa Ying [phone] Social History Tobacco Use Types Packs/Day Years [...] you attend sikhism or Patient refused 2021 adventism services? Do [...] as of this encounter Care Teams Labor Representative Relationship Specialty Start Date End Date Elsewhere, Pcp PCP - General Family Medicine 12/25/21 documented as of this encounter
--- OUTSIDE RECORDS SUMMARY | 2022-09-09 07:56 | XMS_ITS | Encounter Summary ---
:1965 Author Organization [facility] Address [address] [place] [address] Care Team Providers Name Role Phone Elsewhere, Pcp Primary Care Provider Unavailable Reason for Visit Reason Comments Medication Question Encounter Details Date Type Department Care Team Description 03/08/2022 Clinical Communication Department of Jose Polk Orthopedic Surgery Cyrus Souza M.D. in [place], [facility] [place], [place] [address] [place] [phone] [place], [place] [phone] (Work) [phone] Social History Tobacco Use Types Packs/Day Years [...] 03/08/2022 11:22 AM CDT Kylie, pharmacist at [facility] in [place] calls. She is wondering if you indeed want to fill it. Please call her back at [phone] Regarding the oxycodone script sent today---patient had [...] documented as of this encounter Care Teams Reservoir Engineering Consultant Relationship Specialty Start Date End Date Elsewhere, Pcp PCP - General Family Medicine 12/25/21 documented as of this encounter
--- NOTE | 2022-09-09 07:57 | ED_ITS ---
HPI - Extremity Injury (Upper) General Chief Complaint: Extremity Pain/Injury, Upper Stated Complaint: RT hand pain Time Seen by Provider: 09/09/22 07:27 History of Present Illness HPI narrative: 57-year-old woman presenting to the emergency department with complaint of severe right wrist forearm area pain. She noted this upon waking in the wee hours of the morning this morning. No new injury. Does have a history of chronic pain, fibromyalgia. 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 She tried various salves. Notes that she has to vape marijuana just to go pee in the middle of the night and did that a couple of times without affecting her pain. She indicates pain in the dorsum of the wrist. I note some fissuring on index finger at is chronic and related to the weather she says. No fever. No rheumatological disease. As she is right-handed it was quite a challenge to drive to the ER and shift. Related Data Home Medications Medication Instructions Recorded Confirmed cholecalciferol (vitamin D3) 125 5,000 unit PO DAILY 06/07/22 08/23/22 mcg (5,000 unit) tablet cyanocobalamin (vitamin B-12) 5,000 mcg PO DAILY 06/07/22 08/23/22 2,500 mcg tablet esomeprazole magnesium 40 mg 40 mg PO DAILY 06/07/22 08/23/22 capsule,delayed release magnesium gluconate 27.5 mg 27.5 mg PO DAILY 06/07/22 08/23/22 magnesium (500 mg) tablet oxycodone 5 mg tablet 5 mg PO QID 06/07/22 08/23/22 polyethylene glycol 3350 17 17 g PO QDAY 08/20/22 08/20/22 gram/dose oral powder Previous Rx's Medication Instructions Recorded acetaminophen 650 mg 1,300 mg PO .Every 8 Hours #180 06/08/22 tablet,extended release tabs lamotrigine 200 mg tablet 200 mg PO BID #60 tabs 06/08/22 valacyclovir 500 mg tablet 500 mg PO DAILY cold sores #90 tabs 06/14/22 albuterol sulfate 90 mcg/actuation 2 puff inhalation Q6H PRN 07/23/22 aerosol inhaler (Ventolin HFA) shortness of breath or wheezing #8.5 grams aspirin 81 mg tablet,delayed 81 mg PO QDAY #90 tabs 07/23/22 release bupropion HCl 300 mg 24 hr tablet, 300 mg PO QDAY #90 tabs 07/23/22 extended release cetirizine 10 mg tablet (Zyrtec) 10 mg PO QDAY #90 tabs 07/23/22 pregabalin 300 mg capsule 300 mg PO BID #120 caps 07/23/22 quetiapine 50 mg tablet 50 mg PO .Bedtime sleep #30 tabs 07/23/22 rizatriptan 10 mg tablet 10 mg PO ONCE PRN migraine 07/23/22 headache #10 tabs sumatriptan 5 mg/actuation nasal 5 mg intranasal ONCE PRN migraine 07/23/22 spray headache #6 ea tizanidine 4 mg tablet 4 mg PO Q8H PRN muscle spasticity 07/23/22 #30 tabs diazepam 5 mg tablet (Valium) 5 mg PO BID PRN anxiety #60 tabs 08/04/22 amitriptyline 25 mg tablet 25 mg PO DAILY #30 tabs 08/14/22 bupropion HCl 150 mg 24 hr tablet, 150 mg PO QAM #90 tabs 08/23/22 extended release (Wellbutrin XL) diclofenac sodium 1 % topical gel 2 g topical QID #100 grams 08/23/22 ropinirole 4 mg tablet 4 mg PO .Bedtime #90 tabs 08/23/22 triamcinolone acetonide 0.1 % 1 applic topical BID #453.6 grams 08/23/22 topical cream Allergies Allergy/AdvReac Type Severity Reaction Status Date / Time acyclovir Allergy Mild rash Verified 09/09/22 07:24 shingles like benzoin Allergy Mild rash, Verified 09/09/22 07:24 blisters, itching Cephalosporins Allergy Mild Rash Verified 09/09/22 07:24 penicillin V Allergy Mild Rash Verified 09/09/22 07:24 adhesive Allergy Unknown contact Verified 09/09/22 07:24 dermatitis to tape amoxicillin Allergy Unknown Rash Verified 09/09/22 07:24 baclofen Allergy Unknown Rash Verified 09/09/22 07:24 cefaclor Allergy Unknown Rash Verified 09/09/22 07:24 chlorhexidine Allergy Unknown contact Verified 09/09/22 07:24 dermatitis fentanyl Allergy Unknown Hallucinati Verified 09/09/22 07:24 ng gabapentin Allergy Unknown muscular Verified 09/09/22 07:24 twitch, slurred speech nortriptyline Allergy Unknown Palpitation Verified 09/09/22 07:24 s NSAIDS (Non-Steroidal Allergy Unknown gastric Verified 09/09/22 07:24 Anti-Inflamma bypass silver Allergy Unknown contact Verified 09/09/22 07:24 dermatitis Milk solids Allergy Intermediate Vomiting Uncoded 08/23/22 13:36 RACHEL Allergy Mild rash Uncoded 08/23/22 13:36 needing early removal Pollen Allergy Unknown runny nose Uncoded 08/23/22 13:36 Soy Allergy Allergy Unknown Uncoded 08/23/22 13:36 Sulfamethoxazole / Allergy Unknown nausea, GI Uncoded 08/23/22 13:36 trimethoprim upset dermbond AdvReac Unknown contact Uncoded 08/23/22 13:36 dermatitis Review of Systems Status of ROS: Reports: 6 or more systems reviewed and unremarkable except as noted in History and below [facility] Medical History Allergic rhinitis Ataxia due to cerebrovascular disease Bipolar II disorder Cerebral arteriosclerosis with history of previous cerebrovascular accident Chronic back pain Chronic neck pain Chronic obstructive pulmonary disease Continuous opioid dependence (08/27/16) Cyclothymic disorder Fibromyalgia ELLEN (generalized anxiety disorder) Herpes labialis History of cerebrovascular accident History of skin cancer Migraine Neuropathy associated with polyneuropathy, organomegaly, endocrinopathy, monoclonal gammopathy, and skin changes syndrome Nicotine dependence Polypharmacy Posttraumatic stress disorder Pyogenic arthritis of left shoulder region (03/25/21) Restless legs syndrome 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) Surgical History History of abdominoplasty History of arthroplasty of both knees History of bilateral cataract extraction History of carpal tunnel release of both wrists (2016) History of cholecystectomy History of foot surgery History of gastric bypass (1999) History of left shoulder replacement History of mastopexy History of neck surgery History of nevus excision History of sinus surgery History of spinal surgery History of total hysterectomy with bilateral salpingo-oophorectomy (BSO) History of tubal ligation Status post insertion of spinal cord stimulator Family History Family/Other Breast cancer Lung cancer Father Cancer Coronary artery disease Sister Congenital heart defect Mother Pancreatic cancer, Onset Age: 60 Social History Narrative: medical marijuana use chronic narcotic use tobacco use Smoking Status: Current every day smoker What tobacco products do you use: cigarettes Smoking quit date/years: <= 15 years ago Do you use any of these nicotine containing products: Vaping Products Second hand tobacco smoke exposure: No How often do you have a drink containing alcohol: never How often do you have six or more drinks on one occasion: Never AUDIT-C Alcohol total score: 0 Non-prescribed substance use: marijuana (any form) Little interest or pleasure in doing things: more than half the days Feeling down, depressed, or hopeless: several days service: No Exam Narrative: Exam Narrative: Pleasant. Demonstrating mild discomfort. Cranial nerves 2-12 intact. Breathing easily. Skin is warm and dry. Heavily tattooed extensively. Examination of the right arm is without evidence of swelling or erythema. Couple deep fissures along the radial aspect of the right index finger I do not see inflammatory changes in this area is able to open and close all fingers. Pain seems to be limiting her strength. No evidence of trauma. Most exquisitely tender over the dorsum of the mid wrist. No pain or swelling about the elbow. Well perfused peripherally. Const: Vital Signs, click to edit/add: Vital Signs - 24 hr 09/09/22 07:16 Temperature 97.9 F Pulse Rate [Left P ulse Oximeter] 97 Respiratory Rate 18 Blood Pressure [Ri ght Upper Arm] 113/72 Pulse Oximetry 98 Oxygen Delivery Me thod Room Air Documenting provider has reviewed patient's vital signs: yes Course Reevaluation(s) Reevaluation #1: As I am placing splint, pain is more distractible however she is evolving an intense migraine she says and wants to go home at this point and take the medications that her doctor has prescribed for (her). Seems better in the splint. Placed an 11 inch cinch-lock wrist brace Vital Signs Vital signs: Initial Vital Signs Temperature 97.9 F 09/09/22 07:16 Temperature Source Temporal Artery Scan 09/09/22 07:16 Pulse Rate 97 09/09/22 07:16 Respiratory Rate 18 09/09/22 07:16 Blood Pressure 113/72 09/09/22 07:16 Blood Pressure Mean 85 09/09/22 07:16 Blood Pressure Position Sitting 09/09/22 07:16 Pulse Oximetry 98 09/09/22 07:16 Oxygen Delivery Method 09/09/22 07:16 Vital Signs Temperature 97.9 F 09/09/22 07:16 Pulse Rate 97 09/09/22 07:16 Respiratory Rate 18 09/09/22 07:16 Blood Pressure 113/72 09/09/22 07:16 Pulse Oximetry 98 09/09/22 07:16 Oxygen Delivery Method 09/09/22 07:16 Temperature 97.9 F 09/09/22 07:16 Pulse Rate 97 09/09/22 07:16 Respiratory Rate 18 09/09/22 07:16 Blood Pressure 113/72 09/09/22 07:16 Pulse Oximetry 98 09/09/22 07:16 Oxygen Delivery Method 09/09/22 07:16 MDM - Extremity Injury (Upper) MDM Narrative Medical decision making narrative: I do not think it is unreasonable to do an x-ray. Disorder. Review by me seems to be prior injury to the scaphoid as well as the distal radius that this is only on one view. Otherwise no acute changes noted. Agree with Radiology over- read that scapholunate junction does look to be rather wide. Angie does deny prior significant injury or fracture. Medical Records Attestation: I reviewed the patient's medical records. Discharge Plan Discharge Clinical Impression: Pain in wrist, Strain of right wrist Patient Disposition: Home, Self-Care Condition: Improved Additional Instructions: I would continue to wear this wrist brace for comfort as needed over this week. If not improving follow-up for reassessment. Otherwise watch for marked swelling, redness, heat. Prescriptions: No Action esomeprazole magnesium 40 mg capsule,delayed release(DR/EC) 40 mg PO DAILY magnesium gluconate 27.5 mg magne- sium (500 mg) tablet 27.5 mg PO DAILY cholecalciferol (vitamin D3) 125 mcg (5,000 unit) tablet 5,000 unit PO DAILY cyanocobalamin (vitamin B-12) 2,500 mcg tablet 5,000 mcg PO DAILY oxycodone 5 mg tablet 5 mg PO QID diazepam [Valium] 5 mg tablet 5 mg PO BID PRN (Reason: anxiety) Qty: 60 0RF polyethylene glycol 3350 17 gram/dose powder 17 g PO QDAY bupropion HCl [Wellbutrin XL] 150 mg tablet extended release 24 hr 150 mg PO QAM Qty: 90 3RF ropinirole 4 mg tablet 4 mg PO .Bedtime Qty: 90 3RF triamcinolone acetonide 0.1 % cream 1 applic topical BID Qty: 453.6 0RF diclofenac sodium 1 % gel 2 g topical QID Qty: 100 2RF amitriptyline 25 mg tablet 25 mg PO DAILY Qty: 30 2RF lamotrigine 200 mg tablet 200 mg PO BID Qty: 60 12RF acetaminophen 650 mg tablet extended release 1,300 mg PO .Every 8 Hours Qty: 180 12RF valacyclovir 500 mg tablet 500 mg PO DAILY Qty: 90 3RF aspirin 81 mg tablet,delayed release (DR/EC) 81 mg PO QDAY Qty: 90 3RF bupropion HCl 300 mg tablet extended release 24 hr 300 mg PO QDAY Qty: 90 3RF cetirizine [Zyrtec] 10 mg tablet 10 mg PO QDAY Qty: 90 3RF pregabalin 300 mg capsule 300 mg PO BID Qty: 120 2RF Rx Instructions: Total dose 450 mg BID albuterol sulfate [Ventolin HFA] 90 mcg/actuation HFA aerosol inhaler 2 puff inhalation Q6H PRN (Reason: shortness of breath or wheezing) Qty: 8.5 2RF quetiapine 50 mg tablet 50 mg PO .Bedtime Qty: 30 5RF rizatriptan 10 mg tablet 10 mg PO ONCE PRN (Reason: migraine headache) Qty: 10 5RF Rx Instructions: TAKE ONE TAB AT ONSET OF HEADACHE, MAY REPEAT Q2H PRN, MAX 30 MG/24 HRS sumatriptan 5 mg/actuation spray,non-aerosol 5 mg intranasal ONCE PRN (Reason: migraine headache) Qty: 6 5RF Rx Instructions: 1-2 SPRAYS IN ONE NOSTRIL AT ONSET OF HEADACHE, MAY REPEAT Q2H PRN, MAX 4 SPRAYS/24 HRS tizanidine 4 mg tablet 4 mg PO Q8H PRN (Reason: muscle spasticity) Qty: 30 0RF Follow Up/Referrals: Clemente Blackwell MD [Primary Care Provider] - Stand Alone Forms: [facility] Info Instructions
--- OUTSIDE RECORDS SUMMARY | 2022-09-09 07:57 | XMS_ITS | Encounter Summary ---
:1965 Author Organization [facility] Address [address] [place] [address] Care Team Providers Name Role Phone Elsewhere, Pcp Primary Care Provider Unavailable Encounter Details Date Type Department Care Team Description 02/26/2022 Surgery [facility] OR Cyrus Polk, ARTHROPLASTY REPLACEMENT [address] [facility] [place] [phone] [facility] [phone] [place] [address] Social History Tobacco Use Types Packs/Day Years [...] you attend shinto or Patient refused 2021 moravian services? Do [...] or the highest technical, or vocational p [employer] degree you have received? Sex Assigned at [...] THC multivit-min/iron/folic/ Take 1 tablet by 0 [id number] (HAIR, SKIN AND mouth daily. NAILS ADVANCED [...] - 02/27/2022 8:05 AM CDT Orthopedic Service: [facility] Admission Day: 02/26/2022 SUBJECTIVE POD1. She [...] am until 6 pm, please page the [facility] pager at [phone] For urgent matters from 6 pm until 6 am, please page Ortho House at [phone] Michael Chino M.D. - 02/26/2022 3:03 PM CDT Orthopedic Service: [facility] Admission Day: 02/26/2022 SUBJECTIVE Patient seen [...] am until 6 pm, please page the [employer] pager at [phone] For urgent matters from 6 pm until 6 am, please page Orth[facility] House at [phone] Clemente Buck, Pharm.D., R.Ph. - 02/26/2022 9:17 [...] Take 150 mg by mouth every morning. fcammptqah-ujrbcfntvyclk-mxzr (ESGIC) 50-325-40 mg per tablet Past Week [...] 1 spray as needed. 5 mg THC multivit-min/iron/folic/kap516 (HAIR, SKIN AND NAILS ADVANCED ORAL) 02/25/2022 [...] (HCC) ??? Nicotine Dependence Unspecified ??? Other Felting Machine Operator Current Drug Therapy ??? Direct [...] Right Lives With: Alone Receives Help From: recreation attendant supervisor, Family, Friend(s) ADL Assistance: Required assistance ADL Assistance Comments: Gets help from PROPERTIES SUPERVISOR for her bath/shower and for her meals IADL/Homemaking Assistance: Required assistance IADL/Homemaking Assistance Comments: Gets help for housecleaning Driving: Independent Driving Comments: takes her cane and medical alert with her. Occupational Role: On disability Occupational Role Comments: Previously worked at a [employer] Prior Mobility/Functional Transfers Level of Irion: Modified independent Previous Transfer/Mobility Assistance Comments: Patient [...] mask during therapy session: yes Outcome Measures [facility] Inpatient Short Form: -[facility] Basic Mobility (V.2) How much help [...] AM-PAC Basic Mobility (V.2) Raw Score: 24 -[facility] Basic Mobility (V.2) Standardized Score: 57.68 Interpretation: Clinicians answer the -[facility] Inpatient Short Form based on observed [...] Prescriptions were sent and filled at the [facility] pharmacy. Catalina Mccloud R.N. - 02/27/2022 [...] elsewhere status post placement antibiotic spacer. A sampler first was necessary for one or more the [...] be placed with approximately 70% contact with nondalton bone. The more superior aspect of the [...] of antibiotic spacer, implantation of reverse arthroplasty, [id number] Cyrus Polk M.D. CT CT Job ID: [id number] documented in this encounter Plan of Treatment [...] [facility] - [address] [place], [place] [address] [facility] [place] [address] [facility] [address] [facility] - [address] [place], [place] [address] [facility] [place] [address] [facility] [address] [facility] (ABNORMAL) CBC with Differential, Blood (02/26/2022 3:47 PM CDT) [facility] gist Method Time Signature Hemoglobin 8.8 [...] [place] [facility] - 200 [place], [place] [address] [facility] [place] [address] [facility] [address] [...] Aerobe / Anaerobe+Susc (02/26/2022 1:00 PM CDT) [facility] gist Method Time Signature Bacteria Cult, No growth 03/12/2022 DTL Aerobe/Anaerob after 14 2:02 PM CDT e+Susc days of incubation. Specimen Anatomical Collection Method Collection Time Receive d Time (Source) Location / / Volume Laterality Shoulder, Left 02/26/2022 1:00 PM 022 1:41 CDT PM CDT Comment: Specimen Source Site: Tissue 1 Narrative [facility] - 03/12/2022 2:02 PM CDT Bacterial Culture: Placed in Bactec aero bic and Bactec anaerobic bottles Cyrus Polk M.D. LAB MICROBIOLOGY - GENERAL O RDERABLES Performing Organization Address City/[facility] Phon e Number [facility] - 200 [place], [place] [address] [facility] [place] [address] [facility] 200 [facility] Bacteria Cult, Aerobe / Anaerobe+Susc (02/26/2022 1:00 PM CDT) Patholo gist Method Time Signature Bacteria Cult, No growth 03/12/2022 DTL Aerobe/Anaerob after 14 2:02 PM CDT e+Susc days of incubation. Specimen Anatomical Collection Method Collection Time Receive d Time (Source) Location / / Volume Laterality Shoulder, Left 02/26/2022 1:00 PM 022 1:38 CDT PM CDT Comment: Specimen Source Site: Tissue 3 Narrative [facility] - 03/12/2022 2:02 PM CDT Bacterial Culture: Placed in Bactec aero bic and Bactec anaerobic bottles Cyrus Polk M.D. LAB MICROBIOLOGY - GENERAL O RDERASARAH Performing Organization Address City/[facility] Phon e Number [facility] - [address] [place], [place] [address] [facility] [place] [address] [facility] 200 [facility] Bacteria Cult, Aerobe / Anaerobe+Susc (02/26/2022 1:00 PM CDT) Patholo gist Method Time Signature Bacteria Cult, No growth 03/12/2022 DTL Aerobe/Anaerob after 14 2:02 PM CDT e+Susc days of incubation. Specimen Anatomical Collection Method Collection Time Receive d Time (Source) Location / / Volume Laterality Shoulder, Left 02/26/2022 1:00 PM 022 1:36 CDT PM CDT Comment: Specimen Source Site: Tissue 2 Narrative [facility] - 03/12/2022 2:02 PM CDT Bacterial Culture: Placed in Bactec aero bic and Bactec anaerobic bottles Cyrus Polk M.D. LAB MICROBIOLOGY - GENERAL O RDERABLES Performing Organization Address City/State/ZIP Code Phon e Number [facility] - [address] [place] [address] [facility] [place] [address] [facility] 200 [facility] Surgical Pathology, Frozen Lab (02/26/2022 1:00 [...] permanent sections. ??Grossed by Nan Ledezma M.S., AMELIA([facility]). Block Summary A Left shoulder 03/01/2022 METH [...] [facility] - [address] [place], [place] [address] [place] [address] [facility] [address] [...] 02/26/2022 02/27/2022 acetaminophen tablet 1,000 mg (TYLENOL) 5786 (Given - Provider: Tanesha Butt)9717 (Given - Provider: Tanesha Butt) 0431 (Given [...] Provider: Tanesha Butt) 0825 (Given - Provider: Caatlina Mccloud R.N.) 600 mg, oral, 2 times [...] documented as of this encounter Care Teams Mold Engraver Relationship Specialty Start Date End Date Elsewhere, Pcp PCP - General Family Medicine 12/25/21 documented as of this encounter
--- OUTSIDE RECORDS SUMMARY | 2022-09-09 07:57 | XMS_ITS | Encounter Summary ---
:1965 Author Organization [facility] Address [address] [place] [address] Care Team Providers Name Role Phone Elsewhere, [...] you attend rastafari or Patient refused 2021 taoism services? Do [...] documented as of this encounter Care Teams Gun Club Manager Relationship Specialty Start Date End Date Elsewhere, Pcp PCP - General Family Medicine 12/25/21 documented as of this encounter
--- OUTSIDE RECORDS SUMMARY | 2022-09-09 07:57 | XMS_ITS | Encounter Summary ---
:1965 Author Organization [facility] Address [address] [place] [address] Care Team Providers Name Role Phone Elsewhere, Pcp Primary Care Provider Unavailable Reason for Visit Reason Comments OPAT Lab request Encounter Details Date Type Department Care Team Description 01/26/2022 Clinical Communication Section of Ruth Eddy (Lab request) Infectious T, R.N. Diseases in [address] [place] [phone] [place] [address] [place], [place] (Work) [phone] Social History Tobacco Use Types Packs/Day Years [...] you attend sikhism or Patient refused 2021 mu-ism services? Do [...] Eddy RBrittonN. - 01/26/2022 4:13 PM CST [facility], phone: [phone] was called and message left to fax us lab results. Our fax and phone number was given. PRINTING MACHINE OPERATOR documented in this encounter Plan of Treatment Not on filedocumented as of this encounter Visit Diagnoses Not on filedocumented in this encounter Additional Health Concerns Assessment Noted Time PHQ-9 Depression Total Score: 16 02/11/2021 12:00 AM C DT documented as of this encounter Care Teams Branch Officer Relationship Specialty Start Date End Date Elsewhere, Pcp PCP - General Family Medicine 12/25/21 documented as of this encounter
--- OUTSIDE RECORDS SUMMARY | 2022-09-09 07:57 | XMS_ITS | Encounter Summary ---
:1965 Author Organization [facility] Address [address] [place] [address] Care Team Providers Name Role Phone Elsewhere, Pcp Primary Care Provider Unavailable Reason for Referral MRI/CAT/PET Scan (Routine) - Closed Specialty Diagnoses / Procedures Referred By Contact Refer red To Contact Radiology Diagnoses Painful Total Joint Arthroplasty Initial ([facility]) Michael Chino M.D. [facility] Procedures CT Shoulder Left without IV Contrast [address] [place] [address] Referral ID Status Reason Start Date Expiration Date Visits Requ ested Visits Authorized [id number] Closed 02/25/2022 02/25/2023 1 1 Encounter Details Date Type Department Care Team Description 02/25/2022 Orders Only Department of Michael Chino, Painful T otal Joint Orthopedic Surgery in [place].Neri Arthro plasty Initial [place], [place] ([facility]) [address] [place] [address] Social History Tobacco Use Types Packs/Day Years [...] you attend zoroastrianism or Patient refused 2021 latter-day services? Do you belong to any clubs or No 05/17/2022 organizations such as zoroastrianism groups, [employer], fraMeican or athletic groups, or school groups? How [...] documented as of this encounter Care Teams Post Manager Relationship Specialty Start Date End Date Elsewhere, Pcp PCP - General Family Medicine 12/25/21 documented as of this encounter
--- OUTSIDE RECORDS SUMMARY | 2022-09-09 07:57 | XMS_ITS | Encounter Summary ---
:1965 Author Organization [facility] Address [address] [place] [address] Care Team Providers Name Role Phone Elsewhere, Pcp Primary Care Provider Unavailable Encounter Details Date Type Department Care Team Description 02/26/2022 Clinical Communication [facility] Blanca Galan Eisenberg C.Ph.T. 201 [facility] [phone] [place], [place] (Work) [phone] Social History Tobacco Use [...] you attend episcopal or Patient refused 2021 taoist services? Do [...] documented as of this encounter Care Teams Manugrapher Relationship Specialty Start Date End Date Elsewhere, Pcp PCP - General Family Medicine 12/25/21 documented as of this encounter
--- OUTSIDE RECORDS SUMMARY | 2022-09-09 07:57 | XMS_ITS | Encounter Summary ---
:1965 Author Organization [facility] Address [address] [place] [address] Care Team Providers Name Role Phone Elsewhere, Pcp Primary Care Provider Unavailable Reason for Visit Outpatient (Routine) - Closed Specialty Diagnoses / Procedures Referred By Contact Refer red To Contact Infectious Diseases Diagnoses Aftercare Total Shoulder Arthroplasty [facility] [address] [place] [phone] Referral ID Status Reason Start Date Expiration Date Visits Requ ested Visits Authorized [id number] Closed 01/01/2022 01/01/2023 1 1 Encounter Details Date Type Department Care Team Description 02/25/2022 Comprehensive Visit Section of Christiano Nixon M.D. [address] [place] [phone] Half-Way Antibiotic Treatment (Primary Dx); Infectious Diseases Russell Santos M.D. [address] [place] [phone] Infection Shoulder Prosthesis Subsequent ; in [place], Direct Infecti on Of Left Shoulder In Infectious And Parasitic Diseases Classified Elsewhere ([facility]); [place] Aftercare Total Shoulder Art hroplasty [address] [place] [phone] Social History Tobacco Use Types Packs/Day [...] you attend buddhist or Patient refused 2021 orthodox services? Do [...] 56 y.o. Birthdate: 1965 Sex: female Address: [address] [place] [phone] Referring Provider: Jose Guadalupe Nixon M.D. REASON [...] OSH AST. She presented to [facility] (unclear if on antibiotics) for further evaluation given persistent L shoulder pain 08/2021 prompting aspiration (09/25/21) which revealed elevated TNC ([address]) with 81% PMNs with cultures positive for [...] thorough debridement.??The patient was subsequently admitted to [facility] for further management. Intraoperative cultures [...] is consistent with aspiration results from original [facility] [facility] evaluation which is likely off premise service representative of the culprit organism causing [...] of Infectious Diseases OPAT monitoring program at [phone] after dismissal. Primary service to follow labs while patient is hospitalized. [place] pharmacist to adjust dosing after dismissal 4. [...] 150 mg by mouth every morning. ??? jjaxpdojoy-ekbswnsufhykk-ebwk (ESGIC) 50-325-40 mg per tablet Take 1 [...] 11 mo ago Resulting Agency CULTURE RESULT??Abnormal?? [facility] CULTURE 1+ Staphylococcus coagulase negative [facility] GRAM STAIN ? 1+ PMNs [facility] GRAM STAIN ? No organisms seen [facility] GRAM STAIN ? 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 Hepatic Function Panel ??? Basic Metabolic Panel Spent 36 minutes in total time both mdem-es-lddx and non wxcn-lh-gwqb to face documented in this encounter Plan [...] 02/25/2022 DTL Black/ mL/min/BSA 11:19 AM CDT [place]ots[place]an Comment: ----ADDITIONAL INFORMATION---- Estimated [...] Address City/State/ZIP Code Phon e Number [facility] - [address] [place] [address] [facility] [place] [address] [facility] 200 [facility] Hepatic Function Panel (02/25/2022 10:09 AM CDT) [facility] gist Method Time Signature Bilirubin, Total, [...] Address City/State/ZIP Code Phon e Number [facility] - [address] [place], [place] [address] [facility] [place] [place] [address] [facility] [address] documented in this encounter Visit Diagnoses Diagnosis Arch Cushion Press Operator Antibiotic Treatment - Primary Infection Shoulder Prosthesis Subsequent Direct Infection Of Left Shoulder In Inf ectious And Parasitic Diseases Classified Elsewhere (HCC) Aftercare Total Shoulder Arthroplasty documented in this encounter Additional Health Concerns Assessment Noted Time PHQ-9 Depression Total Score: 16 02/11/2021 12:00 AM C DT documented as of this encounter Care Teams Insurance Adjuster Relationship Specialty Start Date End Date Elsewhere, Pcp PCP - General Family Medicine 12/25/21 documented as of this encounter
--- OUTSIDE RECORDS SUMMARY | 2022-09-09 07:57 | XMS_ITS | Encounter Summary ---
:1965 Author Organization [facility] Address [address] [place] [address] Care Team Providers Name Role Phone Elsewhere, Pcp Primary Care Provider Unavailable Reason for Visit Reason Comments Labs Only Encounter Details Date Type Department Care Team Description 02/05/2022 Documentation Section of Infectious Amna Kaur , Labs Only Diseases in [facility] 200 [facility] 200 [place] [phone] Social History Tobacco Use Types Packs/Day Years [...] you attend yazidism or Patient refused 2021 yarsani services? Do [...] PM CST Labs entered at this time. CULTURE MECHANIC documented in this encounter Plan of Treatment Not on filedocumented as of this encounter Procedures Procedure Name Priority Date/Time Associated Comments Diagnosis CBC WITH DIFFERENTIAL, B Routine 02/04/2022 3:06 Results for this PM AGRICULTURE MECHANIC procedure are i n the results section. ALANINE AMINOTRANSFERASE Routine 02/04/2022 3:06 Results for this (ALT), S/P PM AGRICULTURE MECHANIC procedure are i n the results section. ALKALINE PHOSPHATASE, Routine 02/04/2022 3:06 Res ults for this S/P PM AGRICULTURE MECHANIC procedure are i n the results section. CREATININE WITH EGFR, Routine 02/04/2022 3:06 Res ults for this S/P PM AGRICULTURE MECHANIC procedure are i n the results section. documented in this encounter Results ALT (Alanine Aminotransferase) (02/04/2022 3:06 PM AGRICULTURE MECHANIC) P athologist Signature EXT ALT 20 4 - 35 OTHER (SPECIFY IN DUPLICATOR PUNCH SET UP OPERATOR) Specimen (Source) Anatomical Location Collection Method / Collectio n Time Received Time / Laterality Volume Blood (Blood, Venous) Resulting Agency Comment [facility] Gucci Salvador M.D. LAB BLOOD ADD-ON Performing Organization Address City/State/ZIP Code Phon e Number OTHER (SPECIFY IN DUPLICATOR PUNCH SET UP OPERATOR) OTHER (SPECIFY IN DUPLICATOR PUNCH SET UP OPERATOR) N/A Alkaline Phosphatase (02/04/2022 3:06 PM AGRICULTURE MECHANIC) P athologist Signature EXT Alkaline 102 40 - 150 OTHER (SPECIFY Phosphatase IN DUPLICATOR PUNCH SET UP OPERATOR) Specimen (Source) Anatomical Location Collection Method / Collectio n Time Received Time / Laterality Volume Blood (Blood, Venous) Resulting Agency Comment [facility] Gucci Salvador M.D. LAB BLOOD ADD-ON Performing Organization Address City/State/ZIP [facility] Phon e Number OTHER (SPECIFY IN DUPLICATOR PUNCH SET UP OPERATOR) OTHER (SPECIFY IN DUPLICATOR PUNCH SET UP OPERATOR) N/A Creatinine with Estimated GFR (02/04/2022 3:06 PM AGRICULTURE MECHANIC) P athologist Signature EXT Creatinine 0.7 0.5 - 1.5 OTHER (SPECIFY mg/dL IN DUPLICATOR PUNCH SET UP OPERATOR) Specimen (Source) Anatomical Location Collection Method / Collectio n Time Received Time / Laterality Volume Blood (Blood, Venous) Resulting Agency Comment [facility] Gucci Salvador M.D. LAB BLOOD ADD-ON Performing Organization Address City/[facility] Phon e Number OTHER (SPECIFY IN DUPLICATOR PUNCH SET UP OPERATOR) OTHER (SPECIFY IN DUPLICATOR PUNCH SET UP OPERATOR) N/A (ABNORMAL) CBC with Differential, Blood (02/04/2022 3:06 PM AGRICULTURE MECHANIC) P athologist Signature EXT Platelet 253 150 - 450 OTHER Count (SPECIFY IN DUPLICATOR PUNCH SET UP OPERATOR) EXT Hemoglobin 9.1 (A) 12 - 15.5 OTHER (SPECIFY IN DUPLICATOR PUNCH SET UP OPERATOR) EXT White Blood 4.0 (A) 5.0 - 10.0 OTHER Cell (WBC) (SPECIFY IN Count DUPLICATOR PUNCH SET UP OPERATOR) Specimen (Source) Anatomical Location Collection Method / Collectio n Time Received Time / Laterality Volume Blood (Blood, Venous) Narrative This result has an attachment that is no t available. Resulting Agency Comment [facility] Gucci Hernandezk Lilian LAB BLOOD ADD-ON Performing Organization Address City/State/ZIP [facility] Phon e Number OTHER (SPECIFY IN DUPLICATOR PUNCH SET UP OPERATOR) OTHER (SPECIFY IN DUPLICATOR PUNCH SET UP OPERATOR) N/A documented in this encounter Visit Diagnoses Not on filedocumented in this encounter Additional Health Concerns Assessment Noted Time PHQ-9 Depression Total Score: 16 02/11/2021 12:00 AM C DT documented as of this encounter Care Teams Crystal Syrup Maker Relationship Specialty Start Date End Date Elsewhere, Pcp PCP - General Family Medicine 12/25/21 documented as of this encounter
--- OUTSIDE RECORDS SUMMARY | 2022-09-09 07:57 | XMS_ITS | Encounter Summary ---
:1965 Author Organization [facility] Address [address] [place] [address] Care Team Providers Name Role Phone Elsewhere, Pcp Primary Care Provider Unavailable Encounter Details Date Type Department Care Team Description 02/26/2022 Anesthesia Event RST SEBAS MORAN OR Kaushik Carpenter, [address] [facility] M.B., [place] [address] [address] [facility] [phone] [place] [phone] (Wo rk) Anesthesia Record Procedure Summary Procedure [...] h andoff to the receiving staff during [facility] 1. Identified the patient [...] Procedure Summary Date: 02/26/22 Room / Location: [address] / [facility] in [place], [place] Anesthesia Start: 1212 Anesthesia Stop: 143 [...] ETT location: oral VL device: glide scope Crisfield scope blade size: 3 Adult tube size: [...] Pre-op diagnosis: Degenerative joint disease left. Location: [address] Formerly named [facility] / [facility] in [place], [place] Providers: Cyrus Polk M.D. Pertinent components [...] with patient /legal guardian or through an carbon sequestration plant engineer. Risks/Benefits/Alternatives of Blood transfusion discussed with patient [...] fellow participated in the procedure, and the foreign legal consultant was present for the entire procedure. [...] procedure ar e in the results section. ID US GUIDE PLC NDL Routine 02/26/2022 11:53 Resu lts for this AM CDT procedure are i n the results section. ID INJ ANES BRACHIAL Routine 02/26/2022 11:53 Res [...] Kaushik Carpenter M.B., Ch.B. 3. Juana Silva, CROTCH BREAKER, STAMP ANALYST Patient location during procedure: OR / Procedure Area PROCEDURE DETAILS: Mask difficulty assessment: easy mask Final airway type: video laryngoscope Laryngeal Manipulation: no ?? Final best view of glottic structures - Cormack/Lehane Score: grade 1 ETT location: oral VL device: glide scope Crisfield scope blade size: 3 Adult tube size: [...] ATTESTATION STATEMENT Kaushik Carlos, Ch.B. ANESTHESIA ORDERABLES ID INJ ANES BRACHIAL PLEX, ID US GUIDE [facility] NDL, MC ANE NERVE BLOCK WITH [...] fellow participated in the procedure, and the foreign legal consultant was present for the entire procedure. [...] documented as of this encounter Care Teams Drama Critic Relationship Specialty Start Date End Date Elsewhere, Pcp PCP - General Family Medicine 12/25/21 documented as of this encounter
--- OUTSIDE RECORDS SUMMARY | 2022-09-09 07:57 | XMS_ITS | Encounter Summary ---
:1965 Author Organization [facility] Address [address] [place] [address] Care Team Providers Name Role Phone Elsewhere, Pcp Primary Care Provider Unavailable Reason for Visit Outpatient (Routine) - Closed Specialty Diagnoses / Procedures Referred By Contact Refer red To Contact Orthopedic Surgery Diagnoses Pain Shoulder Left Alfredo Herrera, [facility] [address] [place] [phone] Referral ID Status Reason Start Date Expiration Date Visits Requ ested Visits Authorized [id number] Closed 12/30/2021 12/30/2022 1 1 Encounter Details Date Type Department Care Team Description 02/25/2022 Office Visit Department of Orthopedic Cyrus Polk , Pain Shoulder Left Surgery in [facility] [address] [place] [address] [address] [place] [phone] Social History Tobacco Use Types Packs/Day Years [...] you attend mosque or Patient refused 2021 sikhism services? Do you belong to any clubs or No 05/17/2022 organizations such as mosque groups, [address] [employer], [employer] or athletic groups, or school groups? How [...] involve the use of a medical claims examiner made by a [employer] or one of my partners have collaborated to design, develop, or improve orthopedic implants, instruments, or products. Both the [facility] and the individual surgeons involved receive royalty payments from the use of those specific devices at other institutions, but no royalties or any other payments are paid for the use of those devices with any [facility] patient. The clinical rationale for the use of those devices as well as the availability and applicability of alternative devices was reviewed. He understands that the final decision for the use of a specific medical claims examiner often is made at the time of [...] documented as of this encounter Care Teams Day Care Home Mother Relationship Specialty Start Date End Date Elsewhere, Pcp PCP - General Family Medicine 12/25/21 documented as of this encounter
--- OUTSIDE RECORDS SUMMARY | 2022-09-09 07:57 | XMS_ITS | Encounter Summary ---
:1965 Author Organization [facility] Address [address] [place] [address] Care Team Providers Name Role Phone Elsewhere, Pcp Primary Care Provider Unavailable Reason for Visit Reason Comments OPAT Normal labs Encounter Details Date Type Department Care Team Description 02/09/2022 Clinical Communication Section of Ruth Eddy (Normal labs) Infectious T, R.N. Diseases in [address] [place] [phone] [place] [address] [place], [place] (Work) [phone] Social History Tobacco Use Types Packs/Day Years [...] you attend druze or Patient refused 2021 roman catholic services? [...] Provider: Dennis TA [facility], phone: [phone], fax: [phone] Labs and site care at [facility], phone: [phone] Antimicrobial(s) currently prescribed: See Med List Hyperlink [...] documented as of this encounter Care Teams Coach Operator Relationship Specialty Start Date End Date Elsewhere, Pcp PCP - General Family Medicine 12/25/21 documented as of this encounter
--- OUTSIDE RECORDS SUMMARY | 2022-09-09 07:57 | XMS_ITS | Encounter Summary ---
:1965 Author Organization [facility] Address [address] [place] [address] Care Team Providers Name Role Phone Elsewhere, Pcp Primary Care Provider Unavailable Reason for Visit Reason Comments OPAT Care Coordination Encounter Details Date Type Department Care Team Description 01/22/2022 Clinical Communication Section of Steven Dennis (Care Infectious Diseases E, R.N. Coordination) in [address] [place] [phone] [place], [place] [phone] (Work) [phone] Social History Tobacco Use Types Packs/Day Years [...] IR. ??Is she able to come to [facility] for IR PICC placement? ??If not, we'll [...] I spoke to Carolynn, the nurse at [facility]. She spoke to their wound care nurse and she would liketo try some different dressings first before they move the PICC to the chest. They cannot place a PICC in the chest in [place], so if needed, the patient would have to come to [facility]. The patientwill be there at 2 pm today. She will call back with the patient so we all can come up with a plan together. Addendum: We missed a call from Carolynn, infusion nurse at [facility]. Her message stated that PICCsite care was performed and the site looks better. The wound care team has a plan and is hoping thatblessinge can keep her current PICC. TERER MAINTENANCE Telephone Encounter - Tejal Rudolph R.N. - 01/22/2022 4:46 PM PLASTERER MAINTENANCE I have been unable to reach the patient, but I notified nurse Carolynn at [facility] of Dr. Boris Chaidez's recommendation, that they could try moving the line to the other arm and use a midline but avoid a chest PICC. I faxed the order for midline placement. Nurse Carolynn at [facility] [place] questioned whether the midline could be moved to the other (left) arm, because patient wears a sling on that arm. TERER MAINTENANCE Telephone Encounter - Steven Dennis R.N. - [...] She did get a special dressing from [facility] to use, but it doesn't seem to be helping. Dressing was changed at [facility] today and they applied some guaze to help with the drainage. The [facility] nurse told the patient that [...] following references were used: nursing clinical judgement TERER MAINTENANCE documented in this encounter Plan of Treatment Not on filedocumented as of this encounter Visit Diagnoses Diagnosis Direct Infection Of Left Shoulder In Inf ectious And Parasitic Diseases Classified Elsewhere (HCC) - Primary documented in this encounter Additional Health Concerns Assessment Noted Time PHQ-9 Depression Total Score: 16 02/11/2021 12:00 AM C DT documented as of this encounter Care Teams Automotive Lot Attendant Relationship Specialty Start Date End Date Elsewhere, Pcp PCP - General Family Medicine 12/25/21 documented as of this encounter
--- OUTSIDE RECORDS SUMMARY | 2022-09-09 07:57 | XMS_ITS | Encounter Summary ---
:[address] [facility] Address [address] [place] [address] Care Team Providers Name Role Phone Elsewhere, Pcp Primary Care Provider Unavailable Reason for Visit Reason Comments OPAT Normal Labs Encounter Details Date Type Department Care Team Description 01/15/2022 Clinical Communication Section of Madhav Rizo (Normal Labs) Infectious Diseases M, M.P.H., in [address] 200 [place] [phone] Social History Tobacco Use Types Packs/Day Years [...] attend oriental orthodox or Patient refused 2021 alevism services? Do [...] Rizo M.P.H., R.N. - 01/15/2022 3:24 PM DIRECTOR OF TEACHING AND LEARNING OPAT NOTE Infusion Provider: Dennis TA [facility], phone: [phone], fax: [phone] Labs and site care at [facility], phone: [phone] Antimicrobial(s) currently prescribed: See Med List Hyperlink in note Firm stop date: 02/11/22 Lab results from 01/14/2022 are viewable in the MCR record--listed as External Labs (received via fax, which has been uploaded to Document Viewer/Media) Interpretation and action: The labs were satisfactory and acceptable. No change in plan as per OPAT Practice Guideline. CTOR OF TEACHING AND LEARNING documented in this encounter Plan of Treatment [...] Signature EXT ALT 14 4 - 35 [facility] Specimen (Source) Anatomical Location Collection Method / Collectio n Time Received Time / Laterality Volume Blood (Blood, Venous) Laly Ward APRN, C.N.P. LAB BLOOD ADD-ON Performing Organization Address City/[facility] [place] [facility]/ZIP Code Phon e Number [facility] [address] [place] [address] Creatinine with Estimated GFR (01/14/2022) athologist Signature EXT Creatinine 0.6 0.5 - 1.5 [place] mg/dL [facility] Specimen (Source) Anatomical Location Collection Method / Collectio n Time Received Time / Laterality Volume Blood (Blood, Venous) Laly Ward APRN, C.N.P. LAB BLOOD ADD-ON Performing Organization Address City/[facility] [place] [facility]/ZIP Code Phon e Number [facility] [address] [place] [address] (ABNORMAL) CBC with Differential, Blood (01/14/2022) athologist Signature EXT Platelet 406 150 - 450 [facility] EXT Hemoglobin 9 (A) 12 - 15.5 [facility] EXT Absolute 3.49 1.7 - 7 [place] Neutrophils [facility] EXT White Blood 5.7 5.0 - 10.0 [place] Cell (WBC) Count [facility] Specimen (Source) Anatomical Location Collection Method / Collectio n Time Received Time / Laterality Volume Blood (Blood, Venous) Narrative This result has an attachment that is no t available. Laly Ward APRN, C.N.P. LAB BLOOD ADD-ON Performing Organization Address City/[facility] [place] [facility]/ZIP Code Phon e Number [facility] [address] [place] [address] documented in this encounter Visit Diagnoses Not on filedocumented in this encounter Additional Health Concerns Assessment Noted Time PHQ-9 Depression Total Score: 16 02/11/2021 12:00 AM C DT documented as of this encounter Care Teams Director College Relationship Specialty Start Date End Date Elsewhere, Pcp PCP - General Family Medicine 12/25/21 documented as of this encounter
--- OUTSIDE RECORDS SUMMARY | 2022-09-09 07:57 | XMS_ITS | Encounter Summary ---
:1965 Author Organization [facility] Address [address] [place] [address] Care Team Providers Name Role Phone Elsewhere, Pcp Primary Care Provider Unavailable Reason for Referral MRI/CAT/PET Scan (Routine) - Closed Specialty Diagnoses / Procedures Referred By Contact Refer red To Contact Radiology Diagnoses Painful Total Joint Arthroplasty Initial ([facility]) Michael Chino M.D. [facility] Procedures CT Shoulder Left without IV Contrast [address] [place] [phone] Referral ID Status Reason Start Date Expiration Date Visits Requ ested Visits Authorized [id number] Closed 02/25/2022 02/25/2023 1 1 Reason for Visit MRI/CAT/PET Scan (Routine) - Closed Specialty Diagnoses / Procedures Referred By Contact Refer red To Contact Radiology Diagnoses Painful Total Joint Arthroplasty Initial ([facility]) Michael Chino M.D. [facility] Procedures CT Shoulder Left without IV Contrast [address] [place] [phone] Referral ID Status Reason Start Date Expiration Date Visits Requ ested Visits Authorized [id number] Closed 02/25/2022 02/25/2023 1 1 Encounter Details Date Type Department Care Team Description 02/25/2022 Hospital Encounter Department of Michael Chino Total Joint Radiology, Severiano Celaya M.D. [facility]) [place], [place] [address] [place] [phone] Social History Tobacco Use Types Packs/Day Years [...] you attend gnosticism or Patient refused 2021 yazdanism services? Do [...] THC multivit-min/iron/folic/ Take 1 tablet by 0 [id number] (HAIR, SKIN AND mouth daily. NAILS ADVANCED [...] documented as of this encounter Care Teams Lapel Stitcher Relationship Specialty Start Date End Date Elsewhere, Pcp PCP - General Family Medicine 12/25/21 documented as of this encounter
--- OUTSIDE RECORDS SUMMARY | 2022-09-09 07:57 | XMS_ITS | Encounter Summary ---
:1965 Author Organization [facility] Address [address] [place] [address] Care Team Providers Name Role Phone Elsewhere, Pcp Primary Care Provider Unavailable Reason for Visit Reason Comments OPAT Monitoring Complete Encounter Details Date Type Department Care Team Description 02/12/2022 Clinical Communication Section of Kylie Siddiqui (Monitoring Infectious Diseases M, R.N. Complete) in [facility] [phone] [place] (Work) [address] [place] [phone] Social History Tobacco Use Types Packs/Day Years [...] Complete) Information Discussed Princess, a nurse from [place], called to see if any labs need [...] documented as of this encounter Care Teams Hide Puller Relationship Specialty Start Date End Date Elsewhere, Pcp PCP - General Family Medicine 12/25/21 documented as of this encounter
--- OUTSIDE RECORDS SUMMARY | 2022-09-09 07:57 | XMS_ITS | Encounter Summary ---
:1965 Author Organization [facility] Address [address] [place] [address] Care Team Providers Name Role Phone Elsewhere, Pcp Primary Care Provider Unavailable Encounter Details Date Type Department Care Team Description 02/26/2022 Clinical Communication RST [facility] Janet Sarmiento, [address] [facility].Ph.T. [place], [place] [phone] (Work) [phone] Social History Tobacco Use Types Packs/Day Years [...] you attend pentecostal or Patient refused 2021 hoahaoism services? Do [...] as of this encounter Care Teams Head Up Operator Relationship Specialty Start Date End Date Elsewhere, Pcp PCP - General Family Medicine 12/25/21 documented as of this encounter
--- OUTSIDE RECORDS SUMMARY | 2022-09-09 07:57 | XMS_ITS | Encounter Summary ---
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 [address] [place] [phone] Referral ID Status Reason Start Expiration Visits Visits Date Date Requested Authorized [id number] Authorized Patient 02/08/2022 02/08/2023 1 1 Preference Reason for Visit Reason Comments OPAT Care Coordination Encounter Details Date Type Department Care Team Description 02/08/2022 Clinical Communication Section of Desirae Domingo (Care Infectious Diseases M, R.N. Coordination) in [place], [address] [place] [address] [place] [phone] [place], [place] [phone] (Work) [phone] Social History Tobacco Use Types Packs/Day Years [...] you attend rastafarian or Patient refused 2021 anabaptism services? Do you belong to any clubs or No 05/17/2022 organizations such as rastafarian groups, unions, fra[employer]ium or athletic groups, or school groups? How [...] 02/08/2022 12:06 PM CDT Maritza calls from [employer]. [employer] stop date of 02/11 for IV antibiotics. Maritza requests order be faxed to [facility] where patient has labs and PICC site care done. I called the [facility], .Pull PIC order can be faxed to [phone]. documented in this encounter Plan of Treatment Not on filedocumented as of this encounter Visit Diagnoses Diagnosis Retirement Antibiotic Treatment - Primary documented in this encounter Additional Health Concerns Assessment Noted Time PHQ-9 Depression Total Score: 16 02/11/2021 12:00 AM C DT documented as of this encounter Care Teams Nail Setter Relationship Specialty Start Date End Date Elsewhere, Pcp PCP - General Family Medicine 12/25/21 documented as of this encounter
--- OUTSIDE RECORDS SUMMARY | 2022-09-09 07:57 | XMS_ITS | Encounter Summary ---
:1965 Author Organization [facility] Address [address] [place] [address] Care Team Providers Name Role Phone Elsewhere, Pcp Primary Care Provider Unavailable Reason for Visit Reason Comments OPAT Intervention Encounter Details Date Type Department Care Team Description 01/28/2022 Clinical Communication Section of Ruth Eddy (Intervention Infectious T, R.N. ) Diseases in [address] [place] [phone] [place] [address] [place], [place] (Work) [phone] Social History Tobacco Use Types Packs/Day Years [...] you attend gnosticist or Patient refused 2021 temple services? Do [...] are for now to obtain ALP trend. OS ARCHITECT Telephone Encounter - Desirae Domingo R.N. - 02/01/2022 12:11 PM CST Maritza calls from [place] regarding Alk phos from 01/28. It is greater than 1.5 the upper limit of normal. OS ARCHITECT Telephone Encounter - Su Greene, Pharm.D., R.Ph. - 01/29/2022 8:49 AM CST Reviewed WBC trend including WBC on 01/28, no changes at this time, see note from my colleague Jennifer Roca for details. OS ARCHITECT Telephone Encounter - Ruth Eddy R.N. - 01/29/2022 8:14 AM CST OPAT NOTE ?? Infusion Provider: [facility], phone: [phone], fax: [phone] Labs and site care at [facility], phone: [phone] Antimicrobial(s) currently prescribed: See Med List Hyperlink in note Firm stop date: 02/11/22 ?? Lab results from are viewable in the MCR record--listed as External Labs (received via fax, which has been uploaded to Document Viewer/Media) ?? Interpretation and action: The labs were reviewed. WBC and ANC are improving. I will send this to the provider for review. OS ARCHITECT Telephone Encounter - Jennifer Roca Pharm.D., R.Ph. - 01/28/2022 10:21 AM COGNOS ARCHITECT Pertinent labs and antimicrobial regimen as indicated [...] time. For monitoring: continue weekly OPAT labs. OS ARCHITECT Telephone Encounter - Ruth Eddy RBrittonN. - 01/28/2022 9:40 AM CST OPAT NOTE Infusion Provider: [facility], phone: [phone], fax: [phone] Labs and site care at [facility], phone: [phone] Antimicrobial(s) currently prescribed: See Med List Hyperlink in note Firm stop date: 02/11/22 Lab results from 01/21/2022 are viewable in the MCR record--listed as External Labs (received via fax, which has been uploaded to Document Viewer/Media) Interpretation and action: The labs were reviewed. WBC is 3.6 and ANC is 1.42. Alk Phos was not done. [facility] that included alk phos that will be drawn today, 01-28-2022. OS ARCHITECT documented in this encounter Plan of Treatment Not on filedocumented as of this encounter Procedures Procedure Name Priority Date/Time Associated Comments Diagnosis CBC WITH DIFFERENTIAL, B Routine 01/28/2022 3:00 Results for this PM COGNOS ARCHITECT procedure are i n the results section. ALANINE AMINOTRANSFERASE Routine 01/28/2022 3:00 Results for this (ALT), S/P PM COGNOS ARCHITECT procedure are i n the results section. ALKALINE PHOSPHATASE, Routine 01/28/2022 3:00 Res ults for this S/P PM COGNOS ARCHITECT procedure are i n the results section. CREATININE WITH EGFR, Routine 01/28/2022 3:00 Res ults for this S/P PM COGNOS ARCHITECT procedure are i n the results section. [...] Results ALT (Alanine Aminotransferase) (01/28/2022 3:00 PM COGNOS ARCHITECT) athologist Signature EXT ALT 20 4 - 35 [facility] RE[facility]ERRAL [facility] Specimen (Source) Anatomical Location Collection Method / Collectio n Time Received Time / Laterality Volume Blood (Blood, Venous) Laly Ward APRN, C.N.P. LAB BLOOD ADD-ON Performing Organization Address City/State/ZIP Code Phon e Number MISC REFERRAL LAB (ABNORMAL) Alkaline Phosphatase (01/28/2022 3:00 PM COGNOS ARCHITECT) athologist Signature EXT Alkaline 97 (A) 40 - 50 [facility] REFERRAL Phosphatase LAB Specimen (Source) Anatomical Location Collection Method / Collectio n Time Received Time / Laterality Volume Blood (Blood, Venous) Laly Ward APRN, C.N.P. LAB BLOOD ADD-ON Performing Organization Address City/[facility]/ZIP Code Phon e Number MISC REFERRAL LAB Creatinine with Estimated GFR (01/28/2022 3:00 PM COGNOS ARCHITECT) athologist Signature EXT Creatinine 0.6 0.5 - 1.5 M[facility] REFERRAL mg/dL LAB Specimen (Source) Anatomical Location Collection Method / Collectio n Time Received Time / Laterality Volume Blood (Blood, Venous) Narrative This result has an attachment that is no t available. Laly Ward APRN, C.N.P. LAB BLOOD ADD-ON Performing Organization Address City/[facility]/ZIP Code Phon e Number MISC REFERRAL LAB (ABNORMAL) CBC with Differential, Blood (01/28/2022 3:00 PM COGNOS ARCHITECT) Analysis Performed At Patho logist Time Signature [...] documented as of this encounter Care Teams Hotel Supplies Salesperson Relationship Specialty Start Date End Date Elsewhere, Pcp PCP - General Family Medicine 12/25/21 documented as of this encounter
--- OUTSIDE RECORDS SUMMARY | 2022-09-09 07:57 | XMS_ITS | Encounter Summary ---
:1965 Author Organization [facility] Address [address] [place] [address] Care Team Providers Name Role Phone Elsewhere, Pcp Primary Care Provider Unavailable Encounter Details Date Type Department Care Team Description 02/26/2022 Clinical Communication [facility] Austyn Breaux, Pharmacy [facility]jo [address] [facility] [place] [address] Social History Tobacco Use Types [...] you attend taoist or Patient refused 2021 sikhism services? Do [...] highest level of school Associate degree: etta ploo, 03/24/2021 you have completed or the highest [...] documented as of this encounter Care Teams End Matcher Relationship Specialty Start Date End Date Elsewhere, Pcp PCP - General Family Medicine 12/25/21 documented as of this encounter
--- OUTSIDE RECORDS SUMMARY | 2022-09-09 07:57 | XMS_ITS | Encounter Summary ---
:1965 Author Organization [facility] Address [address] [place] [address] Care Team Providers Name Role Phone Elsewhere, Pcp Primary Care Provider Unavailable Reason for Referral Outpatient (Routine) - Closed Specialty Diagnoses / Procedures Referred By Contact Refer red To Contact Diagnoses Arthroplasty Total Shoulder Replacement Status Post Left Alfredo Herrera O.P.A.-C. [facility] Procedures DX Shoulder Left Ingrowth Series 5 Views [address] [place] [phone] Referral ID Status Reason Start Date Expiration Date Visits Requ ested Visits Authorized [id number] Closed 02/25/2022 02/25/2023 1 1 Outpatient (Routine) - Closed Specialty Diagnoses / Procedures Referred By Contact Refer red To Contact Orthopedic Surgery Diagnoses Arthroplasty Total Shoulder Replacement Status Post Left Alfredo Herrera, [facility] Anh [address] [place] [phone] Referral ID Status Reason Start Date Expiration Date Visits Requ ested Visits Authorized [id number] Closed 02/25/2022 02/25/2023 1 1 Scheduling Instructions 6 wk f/u L TSA Reason for Visit Reason Comments Pre-visit Testing Orders Encounter Details Date Type Department Care Team Description 02/25/2022 Clinical Communication Department of Jam Pre- visit Testing Orthopedic Surgery Cyrus Souza M.D. Orders in [place], [address] [place], [place] [address] [facility] [address] [place], [place] [phone] (Work) [phone] Social History Tobacco Use Types Packs/Day Years [...] you attend restorationist or Patient refused 2021 sabianism services? Do [...] Type Priority Associated Diagnoses Order S [facility] Orthopedic Surgery Outpatient Referral Routine [...] documented as of this encounter Care Teams Glue Plant Operator Relationship Specialty Start Date End Date Elsewhere, Pcp PCP - General Family Medicine 12/25/21 documented as of this encounter
--- OUTSIDE RECORDS SUMMARY | 2022-09-09 07:58 | XMS_ITS | Encounter Summary ---
:1965 Author Organization [facility] Address [address] [place] [address] Care Team Providers Name Role Phone Elsewhere, Pcp Primary Care Provider Unavailable Encounter Details Date Type Department Care Team Description 01/01/2022 Episode Changes Section of Infectious [facility] [place], (Work ) [place] [address] [place] [phone] Social History Tobacco Use Types Packs/Day [...] you attend scientologist or Patient refused 2021 tenriism services? Do [...] as of this encounter Care Teams Form Setter Supervisor Relationship Specialty Start Date End Date Elsewhere, Pcp PCP - General Family Medicine 12/25/21 documented as of this encounter
--- OUTSIDE RECORDS SUMMARY | 2022-09-09 07:58 | XMS_ITS | Encounter Summary ---
:1965 Author Organization [facility] Address [address] [place] [address] Care Team Providers Name Role Phone Elsewhere, Pcp Primary Care Provider Unavailable Encounter Details Date Type Department Care Team Description 01/05/2022 Clinical Communication Section of Infectious Ed [facility] [place], , STERILE SUPPLY TECHNICIAN, C.N.P. [place] [address] [facility] 200 [place] [phone] Social History Tobacco Use Types Packs/Day Years [...] Ward APRN, C.N.P. - 01/05/2022 2:17 PM BEAN SORTER Left shoulder synovial fluid culture from 12/30 has been reported for growth of oxacillin sensitive Staphylococcus epidermidis. No change recommended to the patient's current regimen of ceftriaxone. SORTER Telephone Encounter - Laly Ward APRN, C.N.P. - 01/05/2022 2:17 PM BEAN SORTER ----- Message from Su Greene, Pharm.D., R.Ph. sent at 01/05/2022 9:51 AM BEAN SORTER ----- Patient with shoulder infection (with previous [...] changes please message [facility]ST [facility] [place] PH[facility]IST pool. If urgent, page [phone] M-F 9am-5 pm SORTER documented in this encounter Plan of Treatment Not on filedocumented as of this encounter Visit Diagnoses Not on filedocumented in this encounter Additional Health Concerns Assessment Noted Time PHQ-9 Depression Total Score: 16 02/11/2021 12:00 AM C DT documented as of this encounter Care Teams Breaker Engineer Relationship Specialty Start Date End Date Elsewhere, Pcp PCP - General Family Medicine 12/25/21 documented as of this encounter
--- OUTSIDE RECORDS SUMMARY | 2022-09-09 07:58 | XMS_ITS | Encounter Summary ---
:1965 Author Organization [facility] Address [address] [place] [address] Care Team Providers Name Role Phone Elsewhere, Pcp Primary Care Provider Unavailable Reason for Visit Reason Comments OPAT Intervention Encounter Details Date Type Department Care Team Description 01/07/2022 Clinical Communication Section of MATTHEW Tolbert (Intervention) Infectious Diseases [facility] [phone] [address] [facility] (Work) [place] [address] Social History Tobacco Use Types Packs/Day Years [...] Dandy Reyes, Pharm.D. - 01/12/2022 9:38 AM ORDER MAKE UP CLERK Pertinent labs and antimicrobial regimen as indicated [...] >0.3 mg/dL and absolute value >1.0 mg/dL. R MAKE UP CLERK Telephone Encounter - Steven Dennis R.N. - 01/12/2022 9:13 AM CST OPAT NOTE Infusion Provider: Dennis [facility], phone: [phone], fax: [phone] Labs and site care at [facility], phone: [phone] Antimicrobial(s) currently prescribed: See Med List Hyperlink in note Firm stop date: 02/11/22 Lab results from 01/07/22 are viewable in the MCR record--listed as External Labs (received via fax, which has been uploaded to Document Viewer/Media) Interpretation and action: Will send to the OPAT pharmacist to review the creatinine, which has decreased >30%. Alk phos wasnot drawn. R MAKE UP CLERK documented in this encounter Plan of Treatment Not on filedocumented as of this encounter Procedures Procedure Name Priority Date/Time Associated Comments Diagnosis CBC WITH DIFFERENTIAL, B Routine 01/07/2022 2:30 Results for this PM ORDER MAKE UP CLERK procedure are i n the results section. ALANINE AMINOTRANSFERASE Routine 01/07/2022 2:30 Results for this (ALT), S/P PM ORDER MAKE UP CLERK procedure are i n the results section. CREATININE WITH EGFR, Routine 01/07/2022 2:30 Res ults for this S/P PM ORDER MAKE UP CLERK procedure are i n the results section. documented in this encounter Results ALT (Alanine Aminotransferase) (01/07/2022 2:30 PM ORDER MAKE UP CLERK) P athologist Signature EXT ALT 10 4 - 35 [facility]) Specimen (Source) Anatomical Location Collection Method / Collectio n Time Received Time / Laterality Volume Blood (Blood, Venous) Laly Ward APRN, C.N.P. LAB BLOOD ADD-ON Performing Organization Address City/[facility]/ZIP [facility] Ph[place] e Number FORMERLY NAMED [facility], [address] [place] [id number] [facility]) Creatinine with Estimated GFR (01/07/2022 2:30 PM ORDER MAKE UP CLERK) Analysis Performed At Patho logist Time Signature EXT Creatinine 0.5 0.5 - 1.5 [place] mg/dL [facility]) Specimen (Source) Anatomical Location Collection Method / Collectio n Time Received Time / Laterality Volume Blood (Blood, Venous) Narrative This result has an attachment that is no t available. Laly Ward APRN, C.N.P. LAB BLOOD ADD-ON Performing Organization Address City/[facility]/ZIP [facility] [place] Ph[place] Number FORMER[facility] NAMED [facility], [address] [place] [address] [place] [id number] [facility]) (ABNORMAL) CBC with Differential, Blood (01/07/2022 2:30 PM ORDER MAKE UP CLERK) [facility] gist Method Time Signature EXT Platelet 349 150 - 450 [facility], [facility]) EXT Eosinophils 0.28 0 - 0.5 [facility]) EXT Hemoglobin 8.7 (A) 12 - 15.5 [facility] NAMED [facility], [facility]) EXT Absolute 3.19 1.7 - 7 [place] Neutrophils [facility], [facility]) EXT White Blood 5.4 5.0 - [place] Cell (WBC) 10.0 [facility]) Specimen (Source) Anatomical Location Collection Method / Collectio n Time Received Time / Laterality Volume Blood (Blood, Venous) Narrative This result has an attachment that is no t available. Laly Ward APRN C.N.P. LAB BLOOD ADD-ON Performing Organization Address City/State/ZIP Code Phon e Number FORMERLY NAMED [facility], [address] [place] [id number] [facility]) documented in this encounter Visit Diagnoses Not on filedocumented in this encounter Additional Health Concerns Assessment Noted Time PHQ-9 Depression Total Score: 16 02/11/2021 12:00 AM C DT documented as of this encounter Care Teams Dairy Equipment Mechanic Relationship Specialty Start Date End Date Elsewhere, Pcp PCP - General Family Medicine 12/25/21 documented as of this encounter
--- OUTSIDE RECORDS SUMMARY | 2022-09-09 07:58 | XMS_ITS | Encounter Summary ---
:1965 Author Organization [facility] Address [address] [place] [address] Care Team Providers Name Role Phone Elsewhere, Pcp Primary Care Provider Unavailable Encounter Details Date Type Department Care Team Description 01/08/2022 Clinical Communication Pharmacy Prior Auth ОЛЬГА Carrera M.D. [phone] Social History Tobacco Use Types Packs/Day Years [...] Camelia CINTRON. Thank you, The OPPA Team E OPERATOR documented in this encounter Plan of Treatment Not on filedocumented as of this encounter Visit Diagnoses Not on filedocumented in this encounter Additional Health Concerns Assessment Noted Time PHQ-9 Depression Total Score: 16 02/11/2021 12:00 AM C DT documented as of this encounter Care Teams Roofing Layer Relationship Specialty Start Date End Date Elsewhere, Pcp PCP - General Family Medicine 12/25/21 documented as of this encounter
--- OUTSIDE RECORDS SUMMARY | 2022-09-09 07:58 | XMS_ITS | Encounter Summary ---
:1965 Author Organization [facility] Address [address] [place] [address] Care Team Providers Name Role Phone Elsewhere, Pcp Primary Care Provider Unavailable Encounter Details Date Type Department Care Team Description 12/30/2021 Surgery RST SEBAS MORAN OR Cyrus Polk, ARTHROPLASTY RESECTION [address] [facility] [place] [address] 0001 [address] [facility] [phone] [place] [phone] Social History Tobacco Use Types Packs/Day Years [...] Comments Blood Pressure 119/74 12/30/2021 12:47 PM DESIGN QUALITY ENGINEER Pulse 79 12/30/2021 12:47 PM DESIGN QUALITY ENGINEER Temperature 36.8 ??C (98.2 ??F) 12/30/2021 11:22 AM DESIGN QUALITY ENGINEER Respiratory Rate 20 12/30/2021 12:47 PM DESIGN QUALITY ENGINEER Oxygen Saturation 99% 12/30/2021 12:47 PM DESIGN QUALITY ENGINEER Inhaled Oxygen Concentration - - Weight 69.9 kg (154 lb 1.6 12/30/2021 11:22 AM oz) DESIGN QUALITY ENGINEER Height 150.5 cm (4' 11.25) 12/30/2021 11:22 AM no shoe s/boots DESIGN QUALITY ENGINEER Body Mass Index 30.86 12/30/2021 11:22 AM DESIGN QUALITY ENGINEER documented in this encounter Discharge Summaries Dario Carrera M.D. - 01/01/2022 8:50 AM CST DISCHARGE SUMMARY BRIEF OVERVIEW Hospital: [facility] Discharge Provider: Cyrus Polk M.D. Primary Team: [...] RST ROEI OR DISCHARGE DISPOSITION Home-Health Care [facility] [place] [6] ACTIVE ISSUES REQUIRING FOLLOW UP Active [...] were provided to the patient and caregiver(s). GN QUALITY ENGINEER documented in this encounter Discharge Instructions AttachmentsThe following attachments cannot be sent through Care Everywhere. Continuous Nerve-Block Infusion System: Often called a ???pain pump?? (Ethiopian) documented in this encounter Medications at Time [...] needed. multivit-min/iron/folic/ Take 1 tablet by 0 [id number] (HAIR, SKIN AND mouth daily. NAILS ADVANCED [...] signs of local anesthetic systemic toxicity, occur. GN QUALITY ENGINEER Fatemeh Pena R.N. - 01/01/2022 5:28 PM [...] when she got up for the day. GN QUALITY ENGINEER Ruth Gonzalez PAna, D.P.T. - 01/01/2022 4:29 [...] mask during therapy session: no Outcome Measures [facility] Inpatient Short Form: -[facility] Basic Mobility (V.2) [...] quad cane since it is not available [facility] by prescription. Barriers to Discharge Home: [...] (min): 23 min Ruth Gonzalez P.T., D.P.T. GN QUALITY ENGINEER Elvira Duncan R.N. - 01/01/2022 3:21 PM [...] educational pamphlet Continuous Nerve-Block Infusion System ( [id number]).?? Discussed at home removal of nervecatheter, signs of toxicity, and provided the 20/06 number to call with questions.?? All questions answered. On-Q infusion will end Wednesday 01/03 at 2230. Informed patient she may wait until Tuesday morning to remove if she is sleeping. Note OnQ will not be empty as running at 6ml/hr with fill of 550cc. She is aware of this. GN QUALITY ENGINEER Thao You L.I.C.S.W., M.S.W. - 01/01/2022 11:23 AM CST SUBJECTIVE Referral Data The patient was seen for ongoing discharge needs. A list of infusion options (that patient/family geographically resides or requests) has been provided to and reviewed with patient/family. Disclaimers: Financial disclosure provided informing patient of our ownership and financial relationship of the [facility]/home health & hospice agencies. Reviewed insurance coverage, [...] Address Phone Fax Patient Preferred [facility] Infusion and IV Therapy [address] [facility] [address], [place] [address] [phone] -- Contact: Intake NURSING: - Adjust the [...] draws will be managed by Outpatient Facility: [facility] Address: [address] [place] [address] Contact: Princess Jimenez will provide IV access [...] continue to follow. Joe Ervin, M.S.WBritton 01/01/2022 GN QUALITY ENGINEER Gucci Salvador M.D. - 01/01/2022 10:45 AM CST DEMOGRAPHIC INFORMATION [facility] Number:[phone] Patient Name: Angie Ashley Mosquera [...] questions answered to patient's satisfaction. Please page [phone] for questions. 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 [id number] Pamela Leonard PharmAlejandrina, R.Ph. - 01/01/2022 10:14 [...] on post-operative opioids Pamela Crawford PharmAlejandrina, R.Ph. [phone] Jose Guadalupe Washington M.D. - 01/01/2022 8:31 [...] Date/Time Bacteria / Mandi Culture, Blood #2 [[id number]] Collected: 12/31/21 1604 Lab Status: In process Specimen: Blood, Peripheral Draw Updated: 12/31/21 1651 Narrative: Received Bactec aerobic and Bactec anaerobic bottles Specimen Information: Specimen ID: [id number] Specimen Source: Blood, Peripheral Draw Specimen Comment: Specimen Source Site: Blood Specimen Collection Start Date: 12/31/2021 4:05 PM Specimen Received Date: 12/31/2021 4:51 PM Specimen ID: [id number] Specimen Source: Blood, Peripheral Draw Specimen Comment: Specimen Source Site: Blood Specimen Collection Start Date: 12/31/2021 4:05 PM Specimen Received Date: 12/31/2021 4:51 PM Specimen ID: [id number] Specimen Source: Blood, Peripheral Draw Specimen Comment: Specimen Source Site: Blood Specimen Collection Start Date: 12/31/2021 4:04 PM Specimen Received Date: 12/31/2021 4:51 PM Bacteria / Mandi Culture, Blood #1 [[id number]] Collected: 12/31/21 1552 Lab Status: In process Specimen: Blood, Peripheral Draw Updated: 12/31/21 1651 Narrative: Received Bactec aerobic and Bactec anaerobic bottles Specimen Information: Specimen ID: [id number] Specimen Source: Blood, Peripheral Draw Specimen Comment: Specimen Source Site: Blood Specimen Collection Start Date: 12/31/2021 3:52 PM Specimen Received Date: 12/31/2021 4:50 PM Specimen ID: [id number] Specimen Source: Blood, Peripheral Draw Specimen Comment: Specimen Source Site: Blood Specimen Collection Start Date: 12/31/2021 3:53 PM Specimen Received Date: 12/31/2021 4:50 PM Specimen ID: [id number] Specimen Source: Blood, Peripheral Draw Specimen Comment: Specimen Source Site: Blood Specimen Collection Start Date: 12/31/2021 3:53 PM Specimen Received Date: 12/31/2021 4:50 PM Bacteria Cult, Aerobe / Anaerobe+Susc [[id number]] Collected: 12/30/21 1411 Lab Status: Preliminary result Specimen: Shoulder, Left Updated: 12/31/21 1601 Bacteria Cult, Aerobe/Anaerobe+Susc No growth to date. Narrative: Bacterial Culture: Placed in Bactec aerobic and Bactec anaerobic bottles Bacteria Cult, Aerobe / Anaerobe+Susc [[id number]] Collected: 12/30/21 1405 Lab Status: Preliminary result Specimen: Synovial Fluid, Left Shoulder Updated: 12/31/21 1601 Bacteria Cult, Aerobe/Anaerobe+Susc No growth to date. Narrative: Bacterial Culture: Placed in Bactec aerobic and Bactec anaerobic bottles Bacteria Cult, Aerobe / Anaerobe+Susc [[id number]] Collected: 12/30/21 1404 Lab Status: Preliminary result Specimen: Shoulder, Left Updated: 12/31/21 1601 Bacteria Cult, Aerobe/Anaerobe+Susc No growth to date. Narrative: Bacterial Culture: Placed in Bactec aerobic and Bactec anaerobic bottles Bacteria Cult, Aerobe / Anaerobe+Susc [[id number]] Collected: 12/30/21 1403 Lab Status: Preliminary result Specimen: Shoulder, Left Updated: 12/31/21 1601 Bacteria Cult, Aerobe/Anaerobe+Susc No growth to date. Narrative: Bacterial Culture: Placed in Bactec aerobic and Bactec anaerobic bottles Bacteria Cult, Aerobe / Anaerobe+Susc [[id number]] Collected: 12/30/21 1403 Lab Status: Preliminary result Specimen: Shoulder, Left Updated: 12/31/21 1601 Bacteria Cult, Aerobe/Anaerobe+Susc No growth to date. Narrative: Bacterial Culture: Placed in Bactec aerobic and Bactec anaerobic bottles SARS Coronavirus 2, Molecular Detection, PCR, Varies Asymptomatic [[id number]] Collected: 12/29/21 1111 Lab Status: Final result [...] ----ADDITIONAL INFORMATION---- This RT-PCR test using the Stitch.es SARS-CoV-2 Assay ( [employer]) performed on the Stitch.es Two Module System has received Emergency Use Authorization (EUA) by the U.S. Food and Drug Administration, and is modified from the vending enterprises supervisor's instructions with a bridging study. Performance characteristics were verified by [facility] in a manner consistent with CLIA requirements. Visit the CDC website: https://www.cdc.gov/coronavirus/ for the most recent guidelines on Coronavirus testing. Fact Sheet for Healthcare Providers: https://www.fda.gov/media/679488/download Fact Sheet for Patients: https://www.fda.gov/media/589810/download ASSESSMENT / PLAN 56-year-old female with a [...] is consistent with aspiration results from original [facility] evaluation which is likely telemarketing representative of the culprit organism causing her [...] of Infectious Diseases OPAT monitoring program at [phone] after dismissal. Primary service to follow labs while patient is hospitalized. [place] pharmacist to adjust dosing after dismissal 4. [...] off at this time. Please page [facility] [employer]-ID service pager at [phone] with any questions. ?? Jose Guadalupe Nixon [...] Overall Comments Patient to dismiss with OnQ. GN QUALITY ENGINEER Dario Carrera M.D. - 01/01/2022 7:00 AM [...] - Date/Time Bacteria Cult, Aerobe / Anaerobe+Susc [[id number]] Collected: 12/30/21 1411 Lab Status: In process Specimen: Shoulder, Left Updated: 12/30/21 1540 Narrative: Bacterial Culture: Placed in Bactec aerobic and Bactec anaerobic bottles Bacteria Cult, Aerobe / Anaerobe+Susc [[id number]] Collected: 12/30/21 1405 Lab Status: In process Specimen: Synovial Fluid, Left Shoulder Updated: 12/30/21 1519 Narrative: Bacterial Culture: Placed in Bactec aerobic and Bactec anaerobic bottles Bacteria Cult, Aerobe / Anaerobe+Susc [[id number]] Collected: 12/30/21 1404 Lab Status: In process Specimen: Shoulder, Left Updated: 12/30/21 1536 Narrative: Bacterial Culture: Placed in Bactec aerobic and Bactec anaerobic bottles Bacteria Cult, Aerobe / Anaerobe+Susc [[id number]] Collected: 12/30/21 1403 Lab Status: In process Specimen: Shoulder, Left Updated: 12/30/21 1533 Narrative: Bacterial Culture: Placed in Bactec aerobic and Bactec anaerobic bottles Bacteria Cult, Aerobe / Anaerobe+Susc [[id number]] Collected: 12/30/21 1403 Lab Status: In process Specimen: Shoulder, Left Updated: 12/30/21 1538 Narrative: Bacterial Culture: Placed in Bactec aerobic and Bactec anaerobic bottles SARS Coronavirus 2, Molecular Detection, PCR, Varies Asymptomatic [[id number]] Collected: 12/29/21 1111 Lab Status: Final result [...] ----ADDITIONAL INFORMATION---- This RT-PCR test using the Stitch.es SARS-CoV-2 Assay ( [employer] performed on the Stitch.es Two Module System has received Emergency Use Authorization (EUA) by the U.S. Food and Drug Administration, and is modified from the vending enterprises supervisor's instructions with a bridging study. Performance characteristics were verified by [facility] in a manner consistent with CLIA requirements. Visit the CDC website: https://www.cdc.gov/coronavirus/ for the most recent guidelines on Coronavirus testing. Fact Sheet for Healthcare Providers: https://www.fda.gov/media/548421/download Fact Sheet for Patients: https://www.fda.gov/media/261965/download ASSESSMENT / PLAN IMPRESSION/REPORT/PLAN #1 Status post [...] 6 am, please page [facility] [facility] [phone] GN QUALITY ENGINEER Trey Rdz R.N. - 12/31/2021 7:34 AM [...] with onq pump later today or tomorrow GN QUALITY ENGINEER Jey Matos D.O. - 12/31/2021 6:53 AM [...] - Date/Time Bacteria Cult, Aerobe / Anaerobe+Susc [[id number]] Collected: 12/30/21 1411 Lab Status: In process Specimen: Shoulder, Left Updated: 12/30/21 1540 Narrative: Bacterial Culture: Placed in Bactec aerobic and Bactec anaerobic bottles Bacteria Cult, Aerobe / Anaerobe+Susc [[id number]] Collected: 12/30/21 1405 Lab Status: In process Specimen: Synovial Fluid, Left Shoulder Updated: 12/30/21 1519 Narrative: Bacterial Culture: Placed in Bactec aerobic and Bactec anaerobic bottles Bacteria Cult, Aerobe / Anaerobe+Susc [[id number]] Collected: 12/30/21 1404 Lab Status: In process Specimen: Shoulder, Left Updated: 12/30/21 1536 Narrative: Bacterial Culture: Placed in Bactec aerobic and Bactec anaerobic bottles Bacteria Cult, Aerobe / Anaerobe+Susc [[id number]] Collected: 12/30/21 1403 Lab Status: In process Specimen: Shoulder, Left Updated: 12/30/21 1533 Narrative: Bacterial Culture: Placed in Bactec aerobic and Bactec anaerobic bottles Bacteria Cult, Aerobe / Anaerobe+Susc [[id number]] Collected: 12/30/21 1403 Lab Status: In process Specimen: Shoulder, Left Updated: 12/30/21 1538 Narrative: Bacterial Culture: Placed in Bactec aerobic and Bactec anaerobic bottles SARS Coronavirus 2, Molecular Detection, PCR, Varies Asymptomatic [[id number]] Collected: 12/29/21 1111 Lab Status: Final result [...] ----ADDITIONAL INFORMATION---- This RT-PCR test using the Stitch.es SARS-CoV-2 Assay ( [employer]) performed on the Stitch.es Two Module System has received Emergency Use Authorization (EUA) by the U.S. Food and Drug Administration, and is modified from the vending enterprises supervisor's instructions with a bridging study. Performance characteristics were verified by [facility] in a manner consistent with CLIA requirements. Visit the CDC website: https://www.cdc.gov/coronavirus/ for the most recent guidelines on Coronavirus testing. Fact Sheet for Healthcare Providers: https://www.fda.gov/media/438428/download Fact Sheet for Patients: https://www.fda.gov/media/155603/download ASSESSMENT / PLAN IMPRESSION/REPORT/PLAN #1 Status post [...] Jey Matos, DO Shoulder & Elbow Fellow [facility] Orthopaedic Surgery For any questions or concerns from 6 am until 6 pm, please page Jam service For urgent matters from 6 pm until 6 am, please page Ortho [facility] at [facility] [phone] Trey Phan R.N. - 12/30/2021 4:39 PM [...] She is registered with the state of [place] for medical cannabis and she gets her meds from a [place] dispensary. She was told to leave her [...] Take 150 mg by mouth every morning. kzejgwyomb-xafryahjsvstz-nyyo (ESGIC) 50-325-40 mg per tablet Past Week [...] by mouth 2 (two) times a day. GN QUALITY ENGINEER documented in this encounter Procedure Notes Soraida [...] to release the adhesive from the skin. http://[employer]/products/secureportiv GN QUALITY ENGINEER documented in this encounter Consult Notes Ruth [...] Right Lives With: Alone Receives Help From: attendant coin operated laundry, Family, Friend(s) ADL Assistance: Required assistance ADL Assistance Comments: Gets help from POLE LIFT OPERATOR for her bath/shower and for her meals IADL/Homemaking Assistance: Required assistance IADL/Homemaking Assistance Comments: Gets help for housecleaning Driving: Independent Occupational Role: On disability Prior Mobility/Functional Transfers Level of [place]: Modified independent Gait Devices/Wheelchair Used: Cane Gait [...] session with call light in reach and POLE LIFT OPERATOR present, all needs metand questions answered. Contact [...] (min): 36 min Ruth Gonzalez P.T., D.P.T. GN QUALITY ENGINEER Thao You L.I.C.S.Erma, M.S.W. - 12/31/2021 2:04 PM CSTAssociated Order(s): IP CONSULT TO CARE MANAGEMENT; IP CONSULT TO CARE MANAGEMENT; IP CONSULT TO CARE MANAGEMENT Psychosocial Assessment SUBJECTIVE DEMOGRAPHIC INFORMATION Person(s) present during interview: Patient Primary care clinic and provider: [facility] Primary Language: Ethiopian Legal Information: Legal decision maker for self [...] / Household Status: Patient resides alone in [place], [place]. She lives in a two bedroom apartment. Patient has four adultchildren two of whom live in [place]. Patient son Rafal lives next door to patient. Support Systems: Family members, Friends/neighbors. We have not received permission to contact them. Primary caregiver: Self Accompanied by/Relationship: None Support System: Family members, Friends/neighbors Spirituality / Roman Catholic / Culture: , None History: No Education: High school Employment: Disabled Psychosocial Risk Factors impacting the patient: Resides alone, mental health issues Abuse, Neglect, Maltreatment, Trauma: Current: None reported. Past: None reported. ENVIRONMENTAL SUPPORTS Current Living Situation: Private residence Patient's Home Environment: Resides in a two bedroom apartment [address] [facility] Care Facility Name (if applicable): [...] Behavior: Oriented Communication: Reads, writes and speaks Ethiopian It is anticipated that the patient will need assistance with .Dressing,bathing, meal prep, housekeeping, shopping ASSISTIVE DEVICES Patient has the following equipment: Eyeglasses, Dentures upper, Dentures lower, cane, walker Patient anticipates potentially needing the following additional equipment: None Transportation needs: Independent to drive, support from family and friends SERVICES REQUESTED Infusion therapy [employer]KER Formal and Informal Resources: Patient receives [...] health aid services and group home through [facility]. Patient also has [...] good support group consisting of family, friends anddarden health services through [facility]. INTERVENTIONS ?? Psychosocial assessment ?? [...] of care/plan: None Joe Ervin, M.S.W. 12/31/2021 GN QUALITY ENGINEER Jose Guadalupe Nixon M.D. - 12/31/2021 7:31 [...] resistance on OSH AST. She presented to [facility] (unclear if on antibiotics) for further evaluation given persistent L shoulder pain 08/2021 prompting aspiration (09/25/21) which revealed elevated TNC (08475) with 81% PMNs with cultures positive for1 [...] debridement. The patient was subsequently admitted to [facility] for further management. Intraoperative cultures and synovial [...] - Date/Time Bacteria Cult, Aerobe / Anaerobe+Susc [[id number]] Collected: 12/30/21 1411 Lab Status: In process Specimen: Shoulder, Left Updated: 12/30/21 1540 Narrative: Bacterial Culture: Placed in Bactec aerobic and Bactec anaerobic bottles Bacteria Cult, Aerobe / Anaerobe+Susc [[id number]] Collected: 12/30/21 1405 Lab Status: In process Specimen: Synovial Fluid, Left Shoulder Updated: 12/30/21 1519 Narrative: Bacterial Culture: Placed in Bactec aerobic and Bactec anaerobic bottles Bacteria Cult, Aerobe / Anaerobe+Susc [[id number]] Collected: 12/30/21 1404 Lab Status: In process Specimen: Shoulder, Left Updated: 12/30/21 1536 Narrative: Bacterial Culture: Placed in Bactec aerobic and Bactec anaerobic bottles Bacteria Cult, Aerobe / Anaerobe+Susc [[id number]] Collected: 12/30/21 1403 Lab Status: In process Specimen: Shoulder, Left Updated: 12/30/21 1533 Narrative: Bacterial Culture: Placed in Bactec aerobic and Bactec anaerobic bottles Bacteria Cult, Aerobe / Anaerobe+Susc [[id number]] Collected: 12/30/21 1403 Lab Status: In process Specimen: Shoulder, Left Updated: 12/30/21 1538 Narrative: Bacterial Culture: Placed in Bactec aerobic and Bactec anaerobic bottles SARS Coronavirus 2, Molecular Detection, PCR, Varies Asymptomatic [[id number]] Collected: 12/29/21 1111 Lab Status: Final result [...] ----ADDITIONAL INFORMATION---- This RT-PCR test using the Stitch.es SARS-CoV-2 Assay ( [employer]) performed on the Stitch.es Two Module System has received Emergency Use Authorization (EUA) by the U.S. Food and Drug Administration, and is modified from the vending enterprises supervisor's instructions with a bridging study. Performance characteristics were verified by [facility] in a manner consistent with CLIA requirements. Visit the CDC website: https://www.cdc.gov/coronavirus/ for the most recent guidelines on Coronavirus testing. Fact Sheet for Healthcare Providers: https://www.fda.gov/media/560132/download Fact Sheet for Patients: https://www.fda.gov/media/928484/download ASSESSMENT / PLAN 56-year-old female with a [...] is consistent with aspiration results from original [facility] evaluation which is likely telemarketing representative of the culprit organism causing her [...] will follow along closely. Please page the [facility]-ID service pager at [phone] with questions. Thank you for the consultation. Jose Guadalupe Nixon M.D. GN QUALITY ENGINEER Associated attestation - Gucci Salvador M.D. - 12/31/2021 6:07 PM DESIGN QUALITY ENGINEER DEMOGRAPHIC INFORMATION Clinic Number:[phone] Patient Name: Angie [...] prescriptions, and Oxycodone. Oxycodone filled here at [facility] pharmacy. Patient going home with an interscalene block OnQ pump. Transportation provided by her son. GN QUALITY ENGINEER Fanny Sifuentes R.N. - 12/31/2021 11:00 PM [...] Nasal mucous membranes remain intact Outcome: Progressing GN QUALITY ENGINEER Ezequiel Hernandez R.N. - 12/30/2021 10:27 PM [...] staff assistance to bathroom. Navin Hernandez R.N. GN QUALITY ENGINEER documented in this encounter OR Notes Op Note - Cyrus Polk M.D. - 12/30/2021 2:50 PM CST STAFF: Cyrus Polk M.D. RESIDENT: Dario Carrera M.D. PRE-OPERATIVE DIAGNOSIS Left infected reverse arthroplasty. POST-OPERATIVE DIAGNOSIS Left infected reverse arthroplasty. A assistant field hockey coach was necessary for one or more of [...] Cyrus Polk M.D. CT CT Job ID: [id number] GN QUALITY ENGINEER documented in this encounter Miscellaneous Notes Hospital [...] and pain is controlled on oral medications. GN QUALITY ENGINEER documented in this encounter Plan of Treatment Scheduled Referrals Name Type Priority Associated Diagnoses Order S [facility] Outpatient Referral Routine Direct Infection Of Ordered: Health Referral Left Shoulder In 02/04/20 22 Infectious And Parasitic Diseases Classified Elsewhere (HCC) documented as of this encounter Procedures Procedure Name Priority Date/Time Associated Comments Diagnosis PLACE PERIPHERALLY Routine 01/01/2022 12:11 Resul ts for this INSERTED CENTRAL PM DESIGN QUALITY ENGINEER procedure a re in CATHETER (PICC) the results section. REMOTE OXIMETRY Routine 12/31/2021 5:23 MONITORING CONT. PM DESIGN QUALITY ENGINEER REMOTE OXIMETRY Routine 12/31/2021 5:23 MONITORING CONT. PM DESIGN QUALITY ENGINEER BACTERIA / MANDI Routine 12/31/2021 4:04 Result s for this CULTURE, BLOOD PM DESIGN QUALITY ENGINEER procedure are in the results section. BACTERIA / MANDI Routine 12/31/2021 3:52 Result s for this CULTURE, BLOOD PM DESIGN QUALITY ENGINEER procedure are in the results section. ADULT OXYGEN THERAPY Routine 12/31/2021 8:01 AM DESIGN QUALITY ENGINEER CBC WITH Routine 12/31/2021 4:25 Results for this DIFFERENTIAL, B AM DESIGN QUALITY ENGINEER procedure ar e in the results section. BASIC METABOLIC Routine 12/31/2021 4:25 Results f or this PANEL, S/P AM DESIGN QUALITY ENGINEER procedure are i n the results section. ADULT OXYGEN THERAPY Routine 12/30/2021 8:01 PM DESIGN QUALITY ENGINEER ADULT OXYGEN THERAPY Routine 12/30/2021 5:12 PM DESIGN QUALITY ENGINEER ADULT OXYGEN THERAPY Routine 12/30/2021 5:12 PM DESIGN QUALITY ENGINEER ADULT OXYGEN THERAPY Routine 12/30/2021 3:46 PM DESIGN QUALITY ENGINEER ADULT OXYGEN THERAPY Routine 12/30/2021 3:46 PM DESIGN QUALITY ENGINEER DX SHOULDER LEFT 1 RAD - Timed (for 12/30/2021 3:41 Re sults for this VIEW specific PM DESIGN QUALITY ENGINEER procedure are i n dates/times) the results section. SURGICAL PATHOLOGY, Routine 12/30/2021 2:15 Shoulder Joint Res ults for this [facility] PM DESIGN QUALITY ENGINEER Disorder Left procedure are in the results section. BACTERIA CULT, Routine 12/30/2021 2:11 Results fo r this AEROBE/ANAEROBE+SUSC PM DESIGN QUALITY ENGINEER procedu re are in the results section. BACTERIA CULT, Routine 12/30/2021 2:05 Results fo r this AEROBE/ANAEROBE+SUSC PM DESIGN QUALITY ENGINEER procedu re are in the results section. BACTERIA CULT, Routine 12/30/2021 2:04 Results fo r this AEROBE/ANAEROBE+SUSC PM DESIGN QUALITY ENGINEER procedu re are in the results section. BACTERIA CULT, Routine 12/30/2021 2:03 Results fo r this AEROBE/ANAEROBE+SUSC PM DESIGN QUALITY ENGINEER procedu re are in the results section. BACTERIA CULT, Routine 12/30/2021 2:03 Results fo r this AEROBE/ANAEROBE+SUSC PM DESIGN QUALITY ENGINEER procedu re are in the results section. ARTHROPLASTY 12/30/2021 12:34 Shoulder Joint RESECTION SHOULDER PM DESIGN QUALITY ENGINEER Disorder Left documented in this encounter Results Place peripherally inserted central catheter (PICC) (01/01/2022 12:11 PM DESIGN QUALITY ENGINEER) Narrative MMODAL - 01/01/2022 12:11 PM DESIGN QUALITY ENGINEER Soraida Dick R.N. ? 01/01/2022 12:13 PM [...] to release the adhesive from the skin. [email or web address] Dario Carrera M.D. PROCEDURE/MINOR SURGICAL ORD ERABLES Performing Organization Address City/State/ZIP Code Phon e Number MMODAL MMODAL NA Bacteria / Mandi Culture, Blood #2 (12/31/2021 4:04 PM DESIGN QUALITY ENGINEER) [facility] gist Method Time Signature Bacteria/Valerie No growth 01/05/2022 DTL da Culture, after 5 5:02 PM DESIGN QUALITY ENGINEER Blood days of incubation. Specimen (Source) Anatomical Collection Method Collection Time Re ceived Time Location / / Volume Laterality Blood (Blood, 12/31/2021 4:04 12/31/2021 4:51 Peripheral Draw) PM DESIGN QUALITY ENGINEER PM DESIGN QUALITY ENGINEER Comment: Specimen Source Site: Blood Narrative [facility] - 01/05/2022 5:02 PM DESIGN QUALITY ENGINEER Received Bactec aerobic and Bactec anaer obic bottles Dario Crarera M.D. LAB MICROBIOLOGY - GENERAL O PATERASARAH Performing Organization Address City/[facility] Phon e Number [facility] - [address] [place], [place] [address] [place] [id number] Bacteria / Mandi Culture, Blood #1 (12/31/2021 3:52 PM DESIGN QUALITY ENGINEER) [facility] Method Time Signature Bacteria/Valerie No growth 01/05/2022 DT da Culture, after 5 5:02 PM DESIGN QUALITY ENGINEER Blood days of incubation. Specimen (Source) Anatomical Collection Method Collection Time Re ceived Time Location / / Volume Laterality Blood (Blood, 12/31/2021 3:52 12/31/2021 4:50 Peripheral Draw) PM DESIGN QUALITY ENGINEER PM DESIGN QUALITY ENGINEER Comment: Specimen Source Site: Blood Narrative [facility] - 01/05/2022 5:02 PM DESIGN QUALITY ENGINEER Received Bactec aerobic and Bactec anaer obic bottles Dario Carrera M.D. LAB MICROBIOLOGY - GENERAL O MARY Performing Organization Address City/[facility] Phon e Number [facility] - [address] [place] [address] [place] [address] (ABNORMAL) CBC with Differential, Blood (12/31/2021 4:25 AM DESIGN QUALITY ENGINEER) [facility] Method Time Signature Hemoglobin 8.9 (L) 11.6 - 12/31/2021 DTL 15.0 g/dL 5:15 AM DESIGN QUALITY ENGINEER Hematocrit 27.3 (L) 35.5 - 12/31/2021 DTL 44.9 % 5:15 AM DESIGN QUALITY ENGINEER Erythrocytes 3.26 (L) 3.92 - 12/31/2021 DTL 5.13 5:15 AM DESIGN QUALITY ENGINEER x10(12)/L MCV 83.7 78.2 - 12/31/2021 DTL 97.9 fL 5:15 AM DESIGN QUALITY ENGINEER RBC Distrib Width 19.6 (H) 12.2 - 12/31/2021 DTL 16.1 % 5:15 AM DESIGN QUALITY ENGINEER Platelet Count 274 157 - 371 12/31/2021 DTL x10(9)/L 5:15 AM DESIGN QUALITY ENGINEER Leukocytes 6.6 3.4 - 9.6 12/31/2021 DTL x10(9)/L 5:15 AM DESIGN QUALITY ENGINEER Neutrophils 4.91 1.56 - 12/31/2021 DTL 6.45 5:15 AM DESIGN QUALITY ENGINEER x10(9)/L Lymphocytes 1.10 0.95 - 12/31/2021 DTL 3.07 5:15 AM DESIGN QUALITY ENGINEER x10(9)/L Monocytes 0.61 0.26 - 12/31/2021 DTL 0.81 5:15 AM DESIGN QUALITY ENGINEER x10(9)/L Eosinophils <0.03 0.03 - 12/31/2021 DTL 0.48 5:15 AM DESIGN QUALITY ENGINEER x10(9)/L Basophils <0.03 0.01 - 12/31/2021 DTL 0.08 5:15 AM DESIGN QUALITY ENGINEER x10(9)/L Specimen Anatomical Collection Method Collection Time Receive d Time (Source) Location / / Volume Laterality Blood (Blood, 12/31/2021 4:25 AM 12/31/19 5:04 Venous) DESIGN QUALITY ENGINEER AM DESIGN QUALITY ENGINEER Dario Carrera M.D. LAB BLOOD ADD-ON Performing Organization Address City/State/ZIP Code Phon e Number [facility] - [address] [place] [phone] [facility] [place] [address] [facility] 200 [facility] (ABNORMAL) Basic Metabolic Panel (12/31/2021 4:25 AM DESIGN QUALITY ENGINEER) P athologist Signature Potassium, S 4.4 3.6 - 5.2 12/31/2021 DTL mmol/L 5:35 AM DESIGN QUALITY ENGINEER Sodium, S 134 (L) 135 - 145 12/31/2021 DTL mmol/L 5:35 AM DESIGN QUALITY ENGINEER Chloride, S 103 98 - 107 12/31/2021 DTL mmol/L 5:35 AM DESIGN QUALITY ENGINEER Bicarbonate, S 22 22 - 29 12/31/2021 DTL mmol/L 5:35 AM DESIGN QUALITY ENGINEER Anion Gap 9 7 - 15 12/31/2021 DTL 5:35 AM DESIGN QUALITY ENGINEER BUN (Blood Urea 21 6 - 21 12/31/2021 DTL Nitrogen), S mg/dL 5:35 AM DESIGN QUALITY ENGINEER Creatinine 0.74 0.59 - 12/31/2021 DTL 1.04 mg/dL 5:35 AM DESIGN QUALITY ENGINEER eGFR-Non 90 >=60 12/31/2021 DTL Black/ mL/min/BSA 5:35 AM DESIGN QUALITY ENGINEER Angolan Comment: ----ADDITIONAL INFORMATION---- Estimated GFR calculated using the 2009 CKD_EPI creatinine equation. eGFR-Black/ >90 >=60 mL/min/BSA 2021 5:35 AM DESIGN QUALITY ENGINEER DTL Comment: ----ADDITIONAL INFORMATION---- Estimated GFR calculated using the 2009 CKD_EPI creatinine equation. Calcium, Total, S 8.7 8.6 - 10.0 mg/dL 12/31/2021 5:35 AM DESIGN QUALITY ENGINEER DTL Glucose, S 138 70 - 140 mg/dL 12/31/2021 5:35 AM DESIGN QUALITY ENGINEER D TL Specimen Anatomical Collection Method Collection Time Receive d Time (Source) Location / / Volume Laterality Blood (Blood, 12/31/2021 4:25 AM 12/31/19 5:18 Venous) DESIGN QUALITY ENGINEER AM DESIGN QUALITY ENGINEER Dario Carrera M.D. LAB BLOOD ADD-ON Performing Organization Address City/State/ZIP Code Phon e Number [facility] - [address] [place], [place] [address] [facility] [place] [address] [facility] [address] DX Shoulder Left 1 View (12/30/2021 3:41 PM DESIGN QUALITY ENGINEER) Anatomical Region Laterality Modality Upper Extremity, Shoulder, Musculoskeletal RST LOS, Left Computed Radiography Musculoskeletal ARZ LOS, Muskuloskeletal FLA LOS Specimen (Source) Anatomical Collection Method Collection Time Re ceived Time Location / / Volume Laterality 12/30/2021 3:54 PM DESIGN QUALITY ENGINEER Impressions 12/30/2021 3:59 PM DESIGN QUALITY ENGINEER Postoperative changes of a left shoulder arthroplasty resection and placement of an antibiotic spacer. Negat lalo for postoperative purposes. Narrative 12/30/2021 3:59 PM DESIGN QUALITY ENGINEER EXAM: ??DX SHOULDER LEFT 1 VIEW Procedure Note Timothy Resendiz M.D. - 12/30/2021Forma tting of this note might be different from the original. EXAM: DX SHOULDER LEFT 1 VIEW IMPRESSION: Postoperative changes of a left shoulder arthroplasty resection and placement of an antibiotic spacer. Negat lalo for postoperative purposes. Dario Carrera M.D. IMG DIAGNOSTIC IMAGING [facility] Surgical Pathology, Frozen Lab (12/30/2021 2:15 PM DESIGN QUALITY ENGINEER) Component Value Ref Test Analysis Performed At [facility] Disenia Range Method Time Signature 01/01/2022 METH 8:22 AM DESIGN QUALITY ENGINEER Participated in Kelly Howard, 01/01/2022 METH the D.O.-Pathology 8:22 AM DESIGN QUALITY ENGINEER Interpretation Resident Report Solomon Marcum M.D. 01/01/2022 METH electronically 8:22 AM DESIGN QUALITY ENGINEER signed by I verify that I have examined all relevant slides/materials for the specimen(s) and rendered or confirmed the diagnosis. Frozen A. ??Synovium, left shoulder, excision: ??Synovial tissue 01/01/2022 METH Intraoperative with 8:22 AM DESIGN QUALITY ENGINEER Report acute inflammation (>5 neutrophils/high power field). Signed by Solomon Marcum M.D. 12/31/2021 8:17 AM Gross Description A. ??Received fresh labeled left shoulder is a 1.4 x 0.9 x 01/01/2022 METH 0.4 cm aggregate of red and campbell fibrous tissue, which is 8:22 AM DESIGN QUALITY ENGINEER soft. ??All submitted for frozen and permanent sections. Grossed by Nikki Gallardo. Block Summary A Left shoulder 01/01/2022 METH A1 Left shoulder-frozen 8:22 AM DESIGN QUALITY ENGINEER Interpretation FINAL DIAGNOSIS 01/01/2022 METH 8:22 AM DESIGN QUALITY ENGINEER A. ??Synovium, left shoulder, excision: ??Synovial tissue with acute inflammation (>5 neutrophils/high power field). Specimen (Source) Anatomical Collection Method Collection Time Re ceived Time Location / / Volume Laterality Tissue (Shoulder, 12/30/2021 2:15 PM Left) DESIGN QUALITY ENGINEER Narrative This result has an attachment that is no t available. Cyrus Polk M.D. LAB SURG PATH ORDERABLES Performing Organization Address City/State/ZIP Code Phon e Number [facility] - [address] [place], [place] [address] [facility] [place] [address] [facility] [address] Bacteria Cult, Aerobe / Anaerobe+Susc (12/30/2021 2:11 PM DESIGN QUALITY ENGINEER) Online Prasad Method Time Signature Bacteria Cult, No growth 01/13/2022 DTL Aerobe/Anaerob after 14 4:02 PM DESIGN QUALITY ENGINEER e+Susc days of incubation. Specimen Anatomical Collection Method Collection Time Receive d Time (Source) Location / / Volume Laterality Shoulder, Left 12/30/2021 2:11 PM 022 3:38 DESIGN QUALITY ENGINEER PM DESIGN QUALITY ENGINEER Comment: Specimen Source Site: Tissue #4 Narrative [facility] [place] - 01/13/2022 4:02 PM DESIGN QUALITY ENGINEER Bacterial Culture: Placed in Bactec aero bic and Bactec anaerobic bottles Cyrus Polk M.D. LAB MICROBIOLOGY - GENERAL O RDERABLES Performing Organization Address City/State/ZIP Code Phon e Number [facility] [address] [place], [place] [address] [facility] [place] [address] [facility] [address] (ABNORMAL) Bacteria Cult, Aerobe / Anaerobe+Susc (12/30/2021 2:05 PM DESIGN QUALITY ENGINEER) Component Value Ref Test Analysis Performed At [facility] Disenia Range Method Time Signature Bacteria STAPHYLOCOCCUS EPIDERMIDIS 01/11/2022 DT L Cult, Growth after 4 days 7:55 AM DESIGN QUALITY ENGINEER Aerobe/Anaero (A) be+Susc Comment: Semi-Urgent Result. Semi-Urgent This is a semi-urgent result [facility] - () [facility] Specimen Anatomical Collection Method Collection Time Receive d Time (Source) Location / / Volume Laterality Synovial Fluid, 12/30/2021 2:05 PM 2021 3:17 Left Shoulder DESIGN QUALITY ENGINEER PM DESIGN QUALITY ENGINEER Comment: Specimen Source Site: Fluid Narrative [facility] [place] - 01/11/2022 7:55 AM DESIGN QUALITY ENGINEER Bacterial Culture: Placed in Bactec aero bic [...] - GENERAL O MARY Performing Organization Address [facility] Phon e Number [facility] - [address] [place] [address] Bacteria Cult, Aerobe / Anaerobe+Susc (12/30/2021 2:04 PM DESIGN QUALITY ENGINEER) [facility] Method Time Signature Bacteria Cult, No growth 01/13/2022 [facility] Aerobe/Anaerob after 14 4:02 PM DESIGN QUALITY ENGINEER e+Susc days of incubation. Specimen Anatomical Collection Method Collection Time Receive d Time (Source) Location / / Volume Laterality Shoulder, Left 12/30/2021 2:04 PM 022 3:34 DESIGN QUALITY ENGINEER PM DESIGN QUALITY ENGINEER Comment: Specimen Source Site: Tissue #3 Narrative [facility] - 01/13/2022 4:02 PM DESIGN QUALITY ENGINEER Bacterial Culture: Placed in Bactec aero bic and Bactec anaerobic bottles Cyrus Polk M.D. LAB MICROBIOLOGY - GENERAL O MARY Performing Organization Address City/[facility] Phon e Number [facility] - [address] Bacteria Cult, Aerobe / Anaerobe+Susc (12/30/2021 2:03 PM DESIGN QUALITY ENGINEER) [facility] Method Time Signature Bacteria Cult, No growth 01/13/2022 DTL Aerobe/Anaerob after 14 4:02 PM DESIGN QUALITY ENGINEER e+Susc days of incubation. Specimen Anatomical Collection Method Collection Time Receive d Time (Source) Location / / Volume Laterality Shoulder, Left 12/30/2021 2:03 PM 022 3:37 DESIGN QUALITY ENGINEER PM DESIGN QUALITY ENGINEER Comment: Specimen Source Site: Tissue #2 Narrative [facility] [place] - 01/13/2022 4:02 PM DESIGN QUALITY ENGINEER Bacterial Culture: Placed in Bactec aero bic and Bactec anaerobic bottles Cyrus Polk M.D. LAB MICROBIOLOGY - GENERAL O RDSONIA Performing Organization Address City/[facility] Phon e Number [facility] - [address] Bacteria Cult, Aerobe / Anaerobe+Susc (12/30/2021 2:03 PM DESIGN QUALITY ENGINEER) [facility] Method Time Signature Bacteria Cult, No growth 01/13/2022 DTL Aerobe/Anaerob after 14 4:02 PM DESIGN QUALITY ENGINEER e+Susc days of incubation. Specimen Anatomical Collection Method Collection Time Receive d Time (Source) Location / / Volume Laterality Shoulder, Left 12/30/2021 2:03 PM 022 3:31 DESIGN QUALITY ENGINEER PM DESIGN QUALITY ENGINEER Comment: Specimen Source Site: Tissue #1 Narrative [facility] [place] - 01/13/2022 4:02 PM DESIGN QUALITY ENGINEER Bacterial Culture: Placed in Bactec aero bic and Bactec anaerobic bottles Cyrus Polk M.D. LAB MICROBIOLOGY - GENERAL O RDSONIA Performing Organization Address City/State/[facility] Phon e Number [facility] - [address] [place], [place] [address] [place], [place] [id number] [place] [address] documented in this encounter Visit Diagnoses Diagnosis [...] tablet 1,000 mg Given 01/01/2022 11:36 AM DESIGN QUALITY ENGINEER 1,00 0 mg (TYLENOL) 1,000 mg, oral, Every 6 hours, First dose on Tue12/30/21 at 1800 Given 01/01/2022 6:28 AM DESIGN QUALITY ENGINEER 1,000 mg Given 12/31/2021 11:51 PM DESIGN QUALITY ENGINEER 1,000 mg albuterol nebulizer solution 2.5 mg Given 12/31/2021 4:44 PM DESIGN QUALITY ENGINEER 2.5 mg 2.5 mg, nebulization, Every 6 hours PRN, wheezing, Starting on Tue12/30/21 at 1711, Albuterol nebs were interchanged for albuterol/levalbuterol MDI (same frequency) atorvastatin tablet 80 mg (LIPITOR) Given 12/31/2021 8:57 PM DESIGN QUALITY ENGINEER 80 mg 80 mg, oral, Daily at bedtime, First dose on Tue12/30/21 at 2100 Given 12/30/2021 9:55 PM DESIGN QUALITY ENGINEER 80 mg benzonatate capsule 100 mg (TESSALON PER LES) Given 01/01/2022 3:10 AM DESIGN QUALITY ENGINEER 100 mg 100 mg, oral, 3 times daily PRN, cough, Starting on Tue12/31/21 at 1702, Swallow whole. Do NOT crush, chew or open capsule. Given 12/31/2021 5:39 PM DESIGN QUALITY ENGINEER 100 mg bupivacaine PF 0.2 % 550 mL in NaCl New Bag 01/01/2022 3:15 PM DESIGN QUALITY ENGINEER 6 mL/hr 6 mL/hr 0.9% On-Q pain pump (CB004) 6 mL/hr, nerve catheter, Continuous, Starting on Tue01/01/22 at 1500, PACU & Post-Op, Location: Nerve Catheter Location, Nerve Catheter Location: Interscalene, Device: On-Q Pump bupivacaine PF 0.2 % in Rate/Dose Verify 01/01/2022 1:00 AM DESIGN QUALITY ENGINEER 6 mL/ hr 6 mL/hr NaCl 0.9% 341 mL infusion (MARCAINE) 6 mL/hr, nerve catheter, Continuous, Starting on Tue12/30/21 at 1600, PACU & Post-Op, Nerve Catheter Location: Interscalene, Device: Hospital Infusion Pump Rate/Dose Verify 12/31/2021 12:11 AM DESIGN QUALITY ENGINEER 6 mL/hr 6 mL/hr New Bag 12/30/2021 3:49 PM DESIGN QUALITY ENGINEER 6 mL/hr 6 mL/hr buPROPion XL 24 hr tablet 150 mg (WELLBUTRIN Given 02/2022 8:35 AM DESIGN QUALITY ENGINEER 150 mg XL) 150 mg, oral, Every morning, First dose on Tue12/31/21 at 0900, Swallow whole. Do NOT crush, chew, or split tablet. Given 12/31/2021 8:16 AM DESIGN QUALITY ENGINEER 150 mg calcium carbonate chewable tablet Given 12/31/2021 11: 46 PM DESIGN QUALITY ENGINEER 400 mg of calcium 400 mg of calcium (TUMS) 400 mg of calcium, oral, Every 2 hour PRN, indigestion, Starting on Tue12/30/21 at 1711, Doses listed are in mg of elemental calcium. Take with food. 500 mg calcium carbonate contains 200 mg of elemental calcium. Given 12/31/2021 9:15 PM DESIGN QUALITY ENGINEER 400 mg of calcium carboxymethylcellulose 0.5 % ophthalmic Given 01/01/2022 1:15 AM DESIGN QUALITY ENGINEER 2 drops solution 2 drop (REFRESH PLUS) 2 drop, both eyes, 4 times daily PRN, dry eyes, Starting on Tue12/30/21 at 1711 Given 12/31/2021 12:31 PM DESIGN QUALITY ENGINEER 2 drops Given 12/31/2021 12:23 AM DESIGN QUALITY ENGINEER 2 drops cefTRIAXone in dextrose (iso-osm) IVPB New Bag 01/01/2022 2:38 PM DESIGN QUALITY ENGINEER 2 g 200 mL/hr 2 g (ROCEPHIN) 2 g, intravenous, at 200 mL/hr, Administer over 15 Minutes, Daily before lunch, First dose on Tue01/01/22 at 1345, Drug Monitoring Program: Pharmacist to adjust medication dosing based on indication and drug clearance factors., Indications: Bone and/or joint infection cetirizine tablet 10 mg (ZyrTEC) Given 01/01/2022 8:35 AM DESIGN QUALITY ENGINEER 10 mg 10 mg, oral, 2 times daily, First dose on Tue12/30/21 at 2100, Drug Monitoring Program: Pharmacist to adjust medication dosing based on indication and drug clearance factors. Given 12/31/2021 8:57 PM DESIGN QUALITY ENGINEER 10 mg Given 12/31/2021 8:16 AM DESIGN QUALITY ENGINEER 10 mg cholecalciferol (vitamin D3) tablet 25 m cg Given 01/01/2022 8:35 AM DESIGN QUALITY ENGINEER 25 mcg 25 mcg, oral, Daily, First dose on Tue12/31/21 at 0900, cholecalciferol (vitamin D3) orderable was interchanged for cholecalciferol (vitamin D3) tablet/capsule Given 12/31/2021 8:16 AM DESIGN QUALITY ENGINEER 25 mcg D5W infusion 10-250 mL/hr, intravenous, [...] 5 mg (VALIUM) Given 12/31/2021 12:31 PM DESIGN QUALITY ENGINEER 5 mg 5 mg, oral, 4 times daily PRN, muscle spasms, Starting on Tue12/30/21 at 2243 Given 12/31/2021 1:59 AM DESIGN QUALITY ENGINEER 5 mg diphenhydrAMINE capsule 25 mg (BENADRYL) 25 mg, oral, Daily PRN, itching, Starting on Tue 2 at 0854 diphenhydrAMINE capsule 75 mg (BENADRYL) Given 01/01/2022 8:49 AM DESIGN QUALITY ENGINEER 75 mg 75 mg, oral, Bedtime PRN, sleep, Starting on Tue12/30/21 at 1715 FLUoxetine capsule 80 mg (PROzac) Given 01/01/2022 8:34 AM DESIGN QUALITY ENGINEER 80 mg 80 mg, oral, Daily, First dose on Tue12/31/21 at 0900, FLUoxetine orderable was interchanged for FLUoxetine tablet/capsule Given 12/31/2021 8:16 AM DESIGN QUALITY ENGINEER 80 mg fluticasone furoate 100 mcg/actuation Given 01/01/2022 8:[address] 2 puffs inhaler 2 puff (ARNUITY ELLIPTA) 2 puff, inhalation, 2 times daily, First dose on Tue12/30/21 at 2100, fluticasone furoate 100 mcg was interchanged for fluticasone MDI 110 mcg Given 12/31/2021 9:04 PM DESIGN QUALITY ENGINEER 2 puffs Given 12/31/2021 8:17 AM DESIGN QUALITY ENGINEER 2 puffs gentamicin powder (for bone Given 12/30/2021 2:40 PM DESIGN QUALITY ENGINEER 4 vials Left Shoulder cement) As needed, Starting on Tue12/30/21 at 1440, Intra-Op heparin PF flush syringe 50-150 Units 50-150 Units, intravenous, Once as neede d, line care, 50 units (5 mL) to each lumen of non-valved catheters only, Starting on Tue01/01/22 a t 0817, For 1 dose HYDROmorphone (PF) injection 0.4 mg Given 01/01/2022 4:56 AM DESIGN QUALITY ENGINEER 0.4 mg (DILAUDID) 0.4 mg, intravenous, Every 2 hour PRN, severe pain or score 7-10 of 10, Starting on Tue12/30/21 at 1711, For 5 doses, May administer if pain is greater than 7 after scheduled and PRN regimen exhausted. If pain remains greater than 7, notify primary service. Given 12/31/2021 11:35 AM DESIGN QUALITY ENGINEER 0.4 mg Given 12/31/2021 4:14 AM DESIGN QUALITY ENGINEER 0.4 mg ipratropium-albuteroL 0.5-2.5 mg/3 mL nebulizer Given 01/01/2022 3:15 AM DESIGN QUALITY ENGINEER 3 mL solution 3 mL (DUONEB) 3 mL, nebulization, 4 times daily PRN, shortness of breath, wheezing, Starting on Tue12/30/21 at 1711 lactated ringers Rate/Dose Change 01/01/2022 1:00 AM DESIGN QUALITY ENGINEER 20 mL/hr 20 mL/hr 75 mL/hr, intravenous, Continuous, Starting on Tue12/30/21 at 1715, Until patient has 500cc po intake New Bag 12/31/2021 11:46 PM DESIGN QUALITY ENGINEER 75 mL/hr 75 mL/hr Rate/Dose Change 12/31/2021 3:55 AM DESIGN QUALITY ENGINEER 20 mL/hr 20 mL/hr lactated ringers Continued from OR 12/30/2021 4:00 PM DESIGN QUALITY ENGINEER 75 mL/hr 75 mL/hr 75 mL/hr, intravenous, Continuous, Starting on Tue12/30/21 at 1600, PACU & Post-Op lamoTRIgine tablet 200 mg (LaMICtaL) Given 01/01/2022 8:34 AM DESIGN QUALITY ENGINEER 200 mg 200 mg, oral, 2 times daily, First dose on Tue12/30/21 at 2100 Given 12/31/2021 8:56 PM DESIGN QUALITY ENGINEER 200 mg Given 12/31/2021 8:16 AM DESIGN QUALITY ENGINEER 200 mg methylene blue 0.5 % (5 mg/mL) Given 12/30/2021 2:39 PM DESIGN QUALITY ENGINEER 2 mL Left Shoulder injection As needed, [...] 10 mg (ROXICODONE) Given 01/01/2022 2:38 PM DESIGN QUALITY ENGINEER 10 mg 10 mg, oral, Every 3 hours PRN, severe pain or score 7-10 of 10, Starting on Tue12/31/21 at 1745 Given 01/01/2022 11:35 AM DESIGN QUALITY ENGINEER 10 mg Given 01/01/2022 7:07 AM DESIGN QUALITY ENGINEER 10 mg oxyCODONE IR tablet 5 mg (ROXICODONE) 5 mg, oral, Every 3 hours PRN, moderate pain or score 4-6 of 10, Starting on Tue12/31/21 at 1745, If patient is >75 consider changing to 2.5-5mg scale pantoprazole DR tablet 40 mg (PROTONIX) Given 01/01/2022 3:46 PM DESIGN QUALITY ENGINEER 40 mg 40 mg, oral, 2 times daily before breakfast and dinner, First dose on Tue12/31/21 at 0700, pantoprazole 40 mg oral twice daily was interchanged for esomeprazole 20 or 40 mg oral twice daily Swallow whole. Do NOT crush, chew, or split tablet. Given 01/01/2022 6:29 AM DESIGN QUALITY ENGINEER 40 mg Given 12/31/2021 4:47 PM DESIGN QUALITY ENGINEER 40 mg pregabalin capsule 600 mg (LYRICA) Given 01/01/2022 8:34 AM DESIGN QUALITY ENGINEER 600 mg 600 mg, oral, 2 times daily, First dose on Tue12/30/21 at 2100 Given 12/31/2021 8:56 PM DESIGN QUALITY ENGINEER 600 mg Given 12/31/2021 8:15 AM DESIGN QUALITY ENGINEER 600 mg QUEtiapine tablet 50 mg (SEROquel) Given 12/31/2021 8:57 PM DESIGN QUALITY ENGINEER 50 mg 50 mg, oral, Daily at bedtime, First dose on Tue12/30/21 at 2100 Given 12/30/2021 9:55 PM DESIGN QUALITY ENGINEER 50 mg sennosides-docusate sodium 8.6-50 mg per Given 01/01/2022 8:35 A M DESIGN QUALITY ENGINEER 1 tablet tablet 1 tablet (SENOKOT-S) 1 tablet, oral, 2 times daily, First dose on Tue12/30/21 at 2100, Do not give if patient has diarrhea. Given 12/31/2021 8:57 PM DESIGN QUALITY ENGINEER 1 tablet Given 12/31/2021 8:16 AM DESIGN QUALITY ENGINEER 1 tablet sodium chloride 0.9 % injection [...] injection 3 mL Given 12/31/2021 8:18 AM DESIGN QUALITY ENGINEER 3 mL 3 mL, intravenous, Every 12 hours scheduled, First dose on Tue12/30/21 at 2100, PACU & Post-Op, Peripheral Intravenous Catheter and Rapid Infusion Catheter, when no infusion to maintain patency Given 12/30/2021 9:53 PM DESIGN QUALITY ENGINEER 3 mL vancomycin powder Given 12/30/2021 2:40 PM DESIGN QUALITY ENGINEER 4 g Left Shoulder As needed, Starting on Tue12/30/21 at 1440, Intra-Op zonisamide capsule 300 mg (ZONEGRAN) Given 01/01/2022 8:35 AM DESIGN QUALITY ENGINEER 300 mg 300 mg, oral, 2 times daily, First dose on Tue12/30/21 at 2100, Swallow whole. Do NOT crush, chew or open capsule. Given 12/31/2021 8:57 PM DESIGN QUALITY ENGINEER 300 mg Given 12/31/2021 8:16 AM DESIGN QUALITY ENGINEER 300 mg documented in this encounter Active and Recently Administered Medications Times are shown in DESIGN QUALITY ENGINEER. Scheduled Medication Order 12/30/2021 12/31/2021 01/01/2022 acetaminophen [...] 1419 (Given - Provider: Emre Rodriguez APRN, BL[employer]DER) 2,000 mg (rounded from 1,747.5 mg = [...] 1446 (Given - Provider: Emre Rodriguez APRN, [employer])1550 (Anesthesia Volume Adjustment - Provider: Emre Rodriguez [...] at 1711 benzonatate capsule 100 mg (TESSALON PERLSHAHAZD) 1739 (Given - Provider: Fanny Sifuentes RBrittonNBritton) [...] 2 hour VA N, indigestion, Starting on Tue12/30/21 at 1711, [...] over 3 days 1 patch (TRANSDERM S [facility]ST[facility]) (CANCELED) 1202 (Medication Applied - Provider: Manda [...] documented as of this encounter Care Teams Rigger Up Relationship Specialty Start Date End Date Elsewhere, Pcp PCP - General Family Medicine 12/25/21 documented as of this encounter
--- OUTSIDE RECORDS SUMMARY | 2022-09-09 07:58 | XMS_ITS | Encounter Summary ---
:1965 Author Organization [facility] Address [address] [place] [address] Care Team Providers Name Role Phone Elsewhere, Pcp Primary Care Provider Unavailable Encounter Details Date Type Department Care Team Description 01/01/2022 Clinical Communication [facility] Sapna Dodge C.Ph.T. [address] [facility] [phone] [place], [place] (Work) [phone] Social History Tobacco Use [...] you attend jew or Patient refused 2021 buddhism services? Do [...]
--- OUTSIDE RECORDS SUMMARY | 2022-09-09 07:58 | XMS_ITS | Encounter Summary ---
:1965 Author Organization [facility] Address [address] [place] [id number] Care Team Providers Name Role Phone Elsewhere, Pcp Primary Care Provider Unavailable Reason for Referral Outpatient (Routine) - Closed Specialty Diagnoses / Procedures Referred By Contact Refer red To Contact Infectious Diseases Diagnoses Aftercare Total Shoulder Arthroplasty Jose Guadalupe Nixon [place] M.D. [address] [place] [address] Referral ID Status Reason Start Date Expiration Date Visits Requ ested Visits Authorized [id number] Closed 01/01/2022 01/01/2023 1 1 [employer] Reason for Visit Reason Comments [facility]AT Post [facility] Follow-up Encounter Details Date Type Department Care Team Description 01/01/2022 Clinical Communication [facility]THEW Nixon; [facility] [address] [place] [address] Jose Guadalupe Garcia M.D. Follow-up [place], [place] [address] [place] [phone] [place] [address] Social History Tobacco Use Types Packs/Day Years [...] 05/17/2022 organizations such as scientology groups, unions, fra[employer]acy Networks or athletic groups, or school groups? How [...] Name Type Priority Associated Diagnoses Order S [facility] Infectious Disease Outpatient Routine Aftercare [...] M.D. LAB BLOOD ADD-ON Performing Organization Address City/State/[facility] Phon e Number [facility] - [address] [place] [phone] [address] CRP (C-Reactive Protein) (02/25/2022 10:09 AM CDT) P athologist Signature C-Reactive <3.0 <=8.0 mg/L 02/25/2022 DTL Protein (CRP), 11:34 AM CDT S Specimen Anatomical Collection Method Collection Time Receive d Time (Source) Location / / Volume Laterality Blood (Blood, 02/25/2022 10:09 02/25/2022 Venous) AM CDT 11:00 AM CDT Jose Guadalupe Nixon M.D. LAB BLOOD ADD-ON Performing Organization Address [facility] Phon e Number [facility] - [address] (ABNORMAL) CBC with Differential, Blood (02/25/2022 [...] City/State/ZIP Code Phon e Number [facility] - [address] [place], [place] [address] [facility] [place] [address] Laboratories-[facility] [address] documented in this encounter Visit Diagnoses Diagnosis Aftercare Total Shoulder Arthroplasty - Primary documented in this encounter Additional Health Concerns Assessment Noted Time PHQ-9 Depression Total Score: 16 02/11/2021 12:00 AM C DT documented as of this encounter Care Teams Fashion Illustrator Relationship Specialty Start Date End Date Elsewhere, Pcp PCP - General Family Medicine 12/25/21 documented as of this encounter
--- OUTSIDE RECORDS SUMMARY | 2022-09-09 07:58 | XMS_ITS | Encounter Summary ---
:[address] 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 [address] [place] [phone] Referral ID Status Reason Start Date Expiration Date Visits V isits Requested Authorized [id number] Authorized 01/01/2022 01/01/2023 1 1 E FILLER Encounter Details Date Type Department Care Team Description 12/30/2021 - Hospital Encounter [facility] Kulwant Polk M.D. [address] [place] [phone] Pain Shoulder Left (Primary Dx); 01/01/2022 Hospital, Religious Kennedi Vera MPAS, P.A.-C. [address] [place] [phone] Shoulder Joint Disorder Left; Afshin Blasenberg Direct Inf ection Of Left Shoulder In Infectious And Parasitic Diseases Classified Elsewhere (HCC) Building, Eighth Floor [address] [place] [phone] Social History Tobacco Use Types Packs/Day Years [...] you attend catholic or Patient refused 2021 yazidism services? Do [...] Comments Blood Pressure 141/91 01/01/2022 4:26 PM TABLE FILLER Pulse 95 01/01/2022 4:26 PM TABLE FILLER Temperature 36.8 ??C (98.2 ??F) 01/01/2022 4:26 PM TABLE FILLER Respiratory Rate 18 01/01/2022 4:26 PM TABLE FILLER Oxygen Saturation 93% 01/01/2022 4:26 PM TABLE FILLER Inhaled Oxygen Concentration - - Weight 69.9 kg (154 lb 1.6 12/30/2021 11:22 AM oz) TABLE FILLER Height 150.5 cm (4' 11.25) 12/30/2021 11:22 AM no shoe s/boots TABLE FILLER Body Mass Index 30.86 12/30/2021 11:22 AM TABLE FILLER documented in this encounter Discharge Summaries Dario Carrera M.D. - 01/01/2022 8:50 AM CST DISCHARGE SUMMARY BRIEF OVERVIEW Hospital: [facility] Discharge Provider: Cyrus Polk M.D. Primary [...] RST ROEI OR DISCHARGE DISPOSITION Home-Health Care [facility] [6] ACTIVE ISSUES REQUIRING FOLLOW UP Active [...] were provided to the patient and caregiver(s). E FILLER documented in this encounter Discharge Instructions AttachmentsThe following attachments cannot be sent through Care Everywhere. Continuous Nerve-Block Infusion System: Often called a ???pain pump?? (Iraqi) documented in this encounter Medications at Time [...] needed. multivit-min/iron/folic/ Take 1 tablet by 0 [id number] (HAIR, SKIN AND mouth daily. NAILS ADVANCED [...] when she got up for the day. E FILLER Ruth Gonzalez P.T., D.P.T. - 01/01/2022 4:29 [...] mask during therapy session: no Outcome Measures -[facility] Inpatient Short Form: -[facility] Basic Mobility (V.2) How much help [...] 3-5 steps with a railing?: A Little AM-[facility] Basic Mobility (V.2) Raw Score: 23 AM-PAC Basic Mobility (V.2) Standardized Score: 50.88 Interpretation: Clinicians answer the AM-[facility] Inpatient Short Form based on observed [...] quad cane since it is not available [facility] by prescription. Barriers to Discharge [...] (min): 23 min Ruth Gonzalez P.T., Juice.P.TBritton E FILLER Elvira Duncan R.N. - 01/01/2022 3:21 PM [...] educational pamphlet Continuous Nerve-Block Infusion System ( [id number]).?? Discussed at home removal of nervecatheter, signs [...] our ownership and financial relationship of the [facility]/home health & hospice agencies. Reviewed [...] Selected Services Address Phone Fax Patient Preferred [facility] Infusion and IV Therapy [address], [place] [phone] -- Contact: Intake NURSING: - Adjust the [...] draws will be managed by Outpatient Facility: [facility] Address: [address] , [place], [place] Contact: Princess They will provide IV [...] continue to follow. Joe Ervin, M.S.W. 01/01/2022 E FILLER Gucci Salvador M.D. - 01/01/2022 10:45 AM [...] questions answered to patient's satisfaction. Please page [phone] for questions. 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 [phone] E FILLER Pamela Crawford Pharm.D., R.Ph. - 01/01/2022 10:14 [...] on post-operative opioids Pamela Crawford Pharm.D., R.Ph. [phone] E FILLER Jose Guadalupe Nixon M.D. - 01/01/2022 8:31 AM CST Infectious Diseases Orthopedic Surgery [facility] Consulting Service Progress Note SUBJECTIVE -No acute [...] Date/Time Bacteria / Mandi Culture, Blood #2 [[id number]] Collected: 12/31/21 1604 Lab Status: In process Specimen: Blood, Peripheral Draw Updated: 12/31/21 1651 Narrative: Received Bactec aerobic and Bactec anaerobic bottles Specimen Information: Specimen ID: [id number] Specimen Source: Blood, Peripheral Draw Specimen Comment: Specimen Source Site: Blood Specimen Collection Start Date: 12/31/2021 4:05 PM Specimen Received Date: 12/31/2021 4:51 PM Specimen ID: [id number] Specimen Source: Blood, Peripheral Draw Specimen Comment: Specimen Source Site: Blood Specimen Collection Start Date: 12/31/2021 4:05 PM Specimen Received Date: 12/31/2021 4:51 PM Specimen ID: [id number] Specimen Source: Blood, Peripheral Draw Specimen Comment: Specimen Source Site: Blood Specimen Collection Start Date: 12/31/2021 4:04 PM Specimen Received Date: 12/31/2021 4:51 PM Bacteria / Mandi Culture, Blood #1 [[id number]] Collected: 12/31/21 1552 Lab Status: In process Specimen: Blood, Peripheral Draw Updated: 12/31/21 165 Narrative: Received Bactec aerobic and Bactec anaerobic bottles Specimen Information: Specimen ID: [id number] Specimen Source: Blood, Peripheral Draw Specimen Comment: Specimen Source Site: Blood Specimen Collection Start Date: 12/31/2021 3:52 PM Specimen Received Date: 12/31/2021 4:50 PM Specimen ID: [id number] Specimen Source: Blood, Peripheral Draw Specimen Comment: Specimen Source Site: Blood Specimen Collection Start Date: 12/31/2021 3:53 PM Specimen Received Date: 12/31/2021 4:50 PM Specimen ID: [id number] Specimen Source: Blood, Peripheral Draw Specimen Comment: Specimen Source Site: Blood Specimen Collection Start Date: 12/31/2021 3:53 PM Specimen Received Date: 12/31/2021 4:50 PM Bacteria Cult, Aerobe / Anaerobe+Susc [[id number]] Collected: 12/30/21 1411 Lab Status: Preliminary result Specimen: Shoulder, Left Updated: 12/31/21 1601 Bacteria Cult, Aerobe/Anaerobe+Susc No growth to date. Narrative: Bacterial Culture: Placed in Bactec aerobic and Bactec anaerobic bottles Bacteria Cult, Aerobe / Anaerobe+Susc [[id number]] Collected: 12/30/21 1405 Lab Status: Preliminary result Specimen: Synovial Fluid, Left Shoulder Updated: 12/31/21 1601 Bacteria Cult, Aerobe/Anaerobe+Susc No growth to date. Narrative: Bacterial Culture: Placed in Bactec aerobic and Bactec anaerobic bottles Bacteria Cult, Aerobe / Anaerobe+Susc [[id number]] Collected: 12/30/21 1404 Lab Status: Preliminary result Specimen: Shoulder, Left Updated: 12/31/21 1601 Bacteria Cult, Aerobe/Anaerobe+Susc No growth to date. Narrative: Bacterial Culture: Placed in Bactec aerobic and Bactec anaerobic bottles Bacteria Cult, Aerobe / Anaerobe+Susc [[id number]] Collected: 12/30/21 1403 Lab Status: Preliminary result Specimen: Shoulder, Left Updated: 12/31/21 1601 Bacteria Cult, Aerobe/Anaerobe+Susc No growth to date. Narrative: Bacterial Culture: Placed in Bactec aerobic and Bactec anaerobic bottles Bacteria Cult, Aerobe / Anaerobe+Susc [[id number]] Collected: 12/30/21 1403 Lab Status: Preliminary result Specimen: Shoulder, Left Updated: 12/31/21 1601 Bacteria Cult, Aerobe/Anaerobe+Susc No growth to date. Narrative: Bacterial Culture: Placed in Bactec aerobic and Bactec anaerobic bottles SARS Coronavirus 2, Molecular Detection, PCR, Varies Asymptomatic [[id number]] Collected: 12/29/21 1111 Lab Status: Final result [...] ----ADDITIONAL INFORMATION---- This RT-PCR test using the Lift SARS-CoV-2 Assay ( Adify.) performed on the Lift Two Module System has received Emergency Use Authorization (EUA) by the U.S. Food and Drug Administration, and is modified from the exploration manager's instructions with a bridging study. Performance characteristics were verified by [facility] in a manner consistent with CLIA requirements. Visit the CDC website: https://www.cdc.gov/coronavirus/ for the most recent guidelines on Coronavirus testing. Fact Sheet for Healthcare Providers: https://www.fda.gov/media/342003/download Fact Sheet for Patients: https://www.fda.gov/media/996981/download ASSESSMENT / PLAN 56-year-old female with a [...] is consistent with aspiration results from original [facility] evaluation which is likely cash applications representative of the culprit organism causing her [...] of Infectious Diseases OPAT monitoring program at [phone] after dismissal. Primary service to follow labs while patient is hospitalized. [place] pharmacist to adjust dosing after dismissal 4. [...] this time. Please page Ortho [facility]-ID service pager at [phone] with any questions. ?? Jose Guadalupe Nixon [...] - Date/Time Bacteria Cult, Aerobe / Anaerobe+Susc [[id number]] Collected: 12/30/21 1411 Lab Status: In process Specimen: Shoulder, Left Updated: 12/30/21 1540 Narrative: Bacterial Culture: Placed in Bactec aerobic and Bactec anaerobic bottles Bacteria Cult, Aerobe / Anaerobe+Susc [[id number]] Collected: 12/30/21 1405 Lab Status: In process Specimen: Synovial Fluid, Left Shoulder Updated: 12/30/21 1519 Narrative: Bacterial Culture: Placed in Bactec aerobic and Bactec anaerobic bottles Bacteria Cult, Aerobe / Anaerobe+Susc [[id number]] Collected: 12/30/21 1404 Lab Status: In process Specimen: Shoulder, Left Updated: 12/30/21 1536 Narrative: Bacterial Culture: Placed in Bactec aerobic and Bactec anaerobic bottles Bacteria Cult, Aerobe / Anaerobe+Susc [[id number]] Collected: 12/30/21 1403 Lab Status: In process Specimen: Shoulder, Left Updated: 12/30/21 1533 Narrative: Bacterial Culture: Placed in Bactec aerobic and Bactec anaerobic bottles Bacteria Cult, Aerobe / Anaerobe+Susc [[id number]] Collected: 12/30/21 1403 Lab Status: In process Specimen: Shoulder, Left Updated: 12/30/21 1538 Narrative: Bacterial Culture: Placed in Bactec aerobic and Bactec anaerobic bottles SARS Coronavirus 2, Molecular Detection, PCR, Varies Asymptomatic [[id number]] Collected: 12/29/21 1111 Lab Status: Final result [...] ----ADDITIONAL INFORMATION---- This RT-PCR test using the Lift SARS-CoV-2 Assay ( Adify.) performed on the Lift Two Module System has received Emergency Use Authorization (EUA) by the U.S. Food and Drug Administration, and is modified from the exploration manager's instructions with a bridging study. Performance characteristics were verified by [facility] in a manner consistent with CLIA requirements. Visit the CDC website: https://www.cdc.gov/coronavirus/ for the most recent guidelines on Coronavirus testing. Fact Sheet for Healthcare Providers: https://www.fda.gov/media/794120/download Fact Sheet for Patients: https://www.fda.gov/media/774126/download ASSESSMENT / PLAN IMPRESSION/REPORT/PLAN #1 Status post [...] please page Ortho House at [facility] [phone] Trey Phan R.N. - 12/31/2021 7:34 AM [...] - Date/Time Bacteria Cult, Aerobe / Anaerobe+Susc [[id number]] Collected: 12/30/21 1411 Lab Status: In process Specimen: Shoulder, Left Updated: 12/30/21 1540 Narrative: Bacterial Culture: Placed in Bactec aerobic and Bactec anaerobic bottles Bacteria Cult, Aerobe / Anaerobe+Susc [[id number]] Collected: 12/30/21 1405 Lab Status: In process Specimen: Synovial Fluid, Left Shoulder Updated: 12/30/21 1519 Narrative: Bacterial Culture: Placed in Bactec aerobic and Bactec anaerobic bottles Bacteria Cult, Aerobe / Anaerobe+Susc [[id number]] Collected: 12/30/21 1404 Lab Status: In process Specimen: Shoulder, Left Updated: 12/30/21 1536 Narrative: Bacterial Culture: Placed in Bactec aerobic and Bactec anaerobic bottles Bacteria Cult, Aerobe / Anaerobe+Susc [[id number]] Collected: 12/30/21 1403 Lab Status: In process Specimen: Shoulder, Left Updated: 12/30/21 1533 Narrative: Bacterial Culture: Placed in Bactec aerobic and Bactec anaerobic bottles Bacteria Cult, Aerobe / Anaerobe+Susc [[id number]] Collected: 12/30/21 1403 Lab Status: In process Specimen: Shoulder, Left Updated: 12/30/21 1538 Narrative: Bacterial Culture: Placed in Bactec aerobic and Bactec anaerobic bottles SARS Coronavirus 2, Molecular Detection, PCR, Varies Asymptomatic [[id number]] Collected: 12/29/21 1111 Lab Status: Final result [...] ----ADDITIONAL INFORMATION---- This RT-PCR test using the Lift SARS-CoV-2 Assay ( Adify.) performed on the Lift Two Module System has received Emergency Use Authorization (EUA) by the U.S. Food and Drug Administration, and is modified from the exploration manager's instructions with a bridging study. Performance characteristics were verified by [facility] in a manner consistent with CLIA requirements. Visit the CDC website: https://www.cdc.gov/coronavirus/ for the most recent guidelines on Coronavirus testing. Fact Sheet for Healthcare Providers: https://www.fda.gov/media/805077/download Fact Sheet for Patients: https://www.fda.gov/media/295515/download ASSESSMENT / PLAN IMPRESSION/REPORT/PLAN #1 Status post [...] Jey Matos DO Shoulder & Elbow Fellow [facility] Orthopaedic Surgery For any questions or concerns from 6 am until 6 pm, please page Jam service For urgent matters from 6 pm until 6 am, please page [facility] at [facility] [phone] E FILLER Trey Rdz R.N. - 12/30/2021 4:39 PM [...] Care Plan:continue current management per plan/IPS protocol E FILLER Feli Viveros, PharmBrittonDBritton, R.Ph. - 12/30/2021 11:33 [...] home. She is registered with the state [facility] for medical cannabis and she gets her meds from a [place] dispensary. She was told to leave her [...] Take 150 mg by mouth every morning. ewfudavuyw-glozorpnjtcmx-sydr (ESGIC) 50-325-40 mg per tablet Past Week [...] by mouth 2 (two) times a day. E FILLER documented in this encounter Procedure Notes Soraida [...] to release the adhesive from the skin. http://NetEffect/products/secureportiv E FILLER documented in this encounter Consult Notes Ruth [...] (HCC) ??? Nicotine Dependence Unspecified ??? Other Lang Interpreter Current Drug Therapy ??? 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 ABDOMINOPLASTY ??? ARTHROPLASTY - RESECTION SHOULDER Left 12/30/2021 Procedure: ARTHROPLASTY RESECTION SHOULDER.; Surgeon: Cyrus Polk M.D.; Location: [facility] OR ??? BACK SURGERY [...] Right Lives With: Alone Receives Help From: certified nursing attendant, Family, Friend(s) ADL Assistance: Required assistance ADL Assistance Comments: Gets help from FUNERAL ARRANGER for her bath/shower and for her meals IADL/Homemaking Assistance: Required assistance IADL/Homemaking Assistance Comments: Gets help for housecleaning Driving: Independent Occupational Role: On disability Prior Mobility/Functional Transfers Level of Major: Modified independent Gait Devices/Wheelchair Used: Cane Gait [...] session with call light in reach and FUNERAL ARRANGER present, all needs metand questions answered. Contact monitoring: PPE used during therapy: Therapist was wearing the following PPE throughout entire session: surgicalmask and eye protection Patient was wearing a mask during therapy session: yes, when out of room Outcome Measures [facility] Inpatient Short Form: -[facility] Basic Mobility (V.2) How much help [...] 3-5 steps with a railing?: A Lot -[facility] Basic Mobility (V.2) Raw Score: 17 -[facility] Basic Mobility (V.2) Standardized Score: 39.67 Interpretation: Clinicians answer the -[facility] Inpatient Short Form based on observed [...] (min): 36 min Ruth Gonzalez P.T., D.P.T. E FILLER Thao You L.I.C.SBrenton, M.S.W. - 12/31/2021 2:04 PM CSTAssociated Order(s): IP CONSULT TO CARE MANAGEMENT; IP CONSULT TO CARE MANAGEMENT; IP CONSULT TO CARE MANAGEMENT Psychosocial Assessment SUBJECTIVE DEMOGRAPHIC INFORMATION Person(s) present during interview: Patient Primary care clinic and provider: [facility] Primary Language: Iraqi Legal Information: Legal decision maker for self [...] / Household Status: Patient resides alone in [place], [place]. She lives in a two bedroom apartment. Patient has four adultchildren two of whom live in [place]. Patient son Rafal lives next door to [...] Behavior: Oriented Communication: Reads, writes and speaks Iraqi It is anticipated that the patient will need assistance with .Dressing,bathing, meal prep, housekeeping, shopping ASSISTIVE DEVICES Patient has the following equipment: Eyeglasses, Dentures upper, Dentures lower, cane, walker Patient anticipates potentially needing the following additional equipment: None Transportation needs: Independent to drive, support from family and friends SERVICES REQUESTED Infusion therapy DESK PEN SET ASSEMBLER Formal and Informal Resources: Patient receives home health aid services three times per week and usp visit one time every two weeks through [facility] Services. FINANCES/INSURANCE Primary insurance: MEDICARE A AND B Secondary insurance: MEDICA ADVANCE DIRECTIVES Advance Directive: Patient does not have advance directive, does not want information DISCHARGE PLANNING Patient is planning on returning home upon her discharge. She currently receives home health aid services and usp through [facility]. Patient also has support from a son [...] good support group consisting of family, [facility]. INTERVENTIONS ?? Psychosocial assessment ?? Rapport building ?? Education on coping with chronic pain. PLAN ?? Social work will continue to follow for discharge planning and support. ?? Social work did speak with Pat at [facility] to confirm home health services. ?? Social work will work on infusion therapy referrals as well as home health/outpatient picc site care and labs. Anticipated barriers to the transition of care/plan: None Joe Ervin, M.S.W. 12/31/2021 E FILLER Jose Guadalupe Nixon M.D. - 12/31/2021 7:31 AM CSTAssociated Order(s): IP CONSULT TO INFECTIOUS DISEASES Infectious Diseases Orthopedic Surgery [facility] Consulting Service Consult Note SUBJECTIVE REASON FOR [...] on OSH AST. She presented to [facility] (unclear if on antibiotics) for further evaluation given persistent L shoulder pain 08/2021 prompting aspiration (09/25/21) which revealed elevated TNC (07296) with 81% PMNs with cultures positive for1 [...] patient was subsequently admitted to [facility] for further management. Intraoperative cultures and synovial [...] - Date/Time Bacteria Cult, Aerobe / Anaerobe+Susc [[id number]] Collected: 12/30/21 1411 Lab Status: In process Specimen: Shoulder, Left Updated: 12/30/21 1540 Narrative: Bacterial Culture: Placed in Bactec aerobic and Bactec anaerobic bottles Bacteria Cult, Aerobe / Anaerobe+Susc [[id number]] Collected: 12/30/21 1405 Lab Status: In process Specimen: Synovial Fluid, Left Shoulder Updated: 12/30/21 1519 Narrative: Bacterial Culture: Placed in Bactec aerobic and Bactec anaerobic bottles Bacteria Cult, Aerobe / Anaerobe+Susc [[id number]] Collected: 12/30/21 1404 Lab Status: In process Specimen: Shoulder, Left Updated: 12/30/21 1536 Narrative: Bacterial Culture: Placed in Bactec aerobic and Bactec anaerobic bottles Bacteria Cult, Aerobe / Anaerobe+Susc [[id number]] Collected: 12/30/21 1403 Lab Status: In process Specimen: Shoulder, Left Updated: 12/30/21 1533 Narrative: Bacterial Culture: Placed in Bactec aerobic and Bactec anaerobic bottles Bacteria Cult, Aerobe / Anaerobe+Susc [[id number]] Collected: 12/30/21 1403 Lab Status: In process Specimen: Shoulder, Left Updated: 12/30/21 1538 Narrative: Bacterial Culture: Placed in Bactec aerobic and Bactec anaerobic bottles SARS Coronavirus 2, Molecular Detection, PCR, Varies Asymptomatic [[id number]] Collected: 12/29/21 1111 Lab Status: Final result [...] ----ADDITIONAL INFORMATION---- This RT-PCR test using the Lift SARS-CoV-2 Assay ( Adify.) performed on the Lift Two Module System has received Emergency Use Authorization (EUA) by the U.S. Food and Drug Administration, and is modified from the exploration manager's instructions with a bridging study. Performance characteristics were verified by [facility] in a manner consistent with CLIA requirements. Visit the CDC website: https://www.cdc.gov/coronavirus/ for the most recent guidelines on Coronavirus testing. Fact Sheet for Healthcare Providers: https://www.fda.gov/media/424640/download Fact Sheet for Patients: https://www.fda.gov/media/198473/download ASSESSMENT / PLAN 56-year-old female with a [...] is consistent with aspiration results from original [facility] evaluation which is likely cash applications representative of the culprit organism causing her [...] closely. Please page the Ortho [facility] service pager at [phone] with questions. Thank you for the consultation. Jose Guadalupe Nixon M.D. E FILLER Associated attestation - Gucci Salvador M.D. - 12/31/2021 6:07 PM TABLE FILLER DEMOGRAPHIC INFORMATION [facility] Number:[phone] Patient Name: Angie Mosquera Date: [...] Oxycodone. Oxycodone filled here at [facility] pharmacy. Patient going home with an interscalene block OnQ pump. Transportation provided by her son. E FILLER Fanny Sifuentes R.N. - 12/31/2021 11:00 PM [...] Nasal mucous membranes remain intact Outcome: Progressing E FILLER Ezequiel Hernandez R.N. - 12/30/2021 10:27 PM [...] staff assistance to bathroom. Navin Hernandez R.N. E FILLER documented in this encounter OR Notes Op Note - Cyrus Polk M.D. - 12/30/2021 2:50 PM CST STAFF: Cyrus Polk M.D. RESIDENT: Dario Carrera M.D. PRE-OPERATIVE DIAGNOSIS Left infected reverse arthroplasty. POST-OPERATIVE DIAGNOSIS Left infected reverse arthroplasty. A credentialing assistant was necessary for one or more [...] Cyrus Polk M.D. CT CT Job ID: [id number] E FILLER documented in this encounter Miscellaneous Notes Hospital [...] and pain is controlled on oral medications. E FILLER documented in this encounter Plan of [...] Resul ts for this INSERTED CENTRAL PM TABLE FILLER procedure a re in CATHETER (PICC) the results section. REMOTE OXIMETRY Routine 12/31/2021 5:23 MONITORING CONT. PM TABLE FILLER REMOTE OXIMETRY Routine 12/31/2021 5:23 MONITORING CONT. PM TABLE FILLER BACTERIA / MANDI Routine 12/31/2021 4:04 Result s for this CULTURE, BLOOD PM TABLE FILLER procedure are in the results section. BACTERIA / MANDI Routine 12/31/2021 3:52 Result s for this CULTURE, BLOOD PM TABLE FILLER procedure are in the results section. ADULT OXYGEN THERAPY Routine 12/31/2021 8:01 AM TABLE FILLER CBC WITH Routine 12/31/2021 4:25 Results for this DIFFERENTIAL, B AM TABLE FILLER procedure ar e in the results section. BASIC METABOLIC Routine 12/31/2021 4:25 Results f or this PANEL, S/P AM TABLE FILLER procedure are i n the results section. ADULT OXYGEN THERAPY Routine 12/30/2021 8:01 PM TABLE FILLER ADULT OXYGEN THERAPY Routine 12/30/2021 5:12 PM TABLE FILLER ADULT OXYGEN THERAPY Routine 12/30/2021 5:12 PM TABLE FILLER ADULT OXYGEN THERAPY Routine 12/30/2021 3:46 PM TABLE FILLER ADULT OXYGEN THERAPY Routine 12/30/2021 3:46 PM TABLE FILLER DX SHOULDER LEFT 1 RAD - Timed (for 12/30/2021 3:41 Re sults for this VIEW specific PM TABLE FILLER procedure are i n dates/times) the results section. SURGICAL PATHOLOGY, Routine 12/30/2021 2:15 Shoulder Joint Res ults for this FROZEN LAB PM TABLE FILLER Disorder Left procedure are in the results section. BACTERIA CULT, Routine 12/30/2021 2:11 Results fo r this AEROBE/ANAEROBE+SUSC PM TABLE FILLER procedu re are in the results section. BACTERIA CULT, Routine 12/30/2021 2:05 Results fo r this AEROBE/ANAEROBE+SUSC PM TABLE FILLER procedu re are in the results section. BACTERIA CULT, Routine 12/30/2021 2:04 Results fo r this AEROBE/ANAEROBE+SUSC PM TABLE FILLER procedu re are in the results section. BACTERIA CULT, Routine 12/30/2021 2:03 Results fo r this AEROBE/ANAEROBE+SUSC PM TABLE FILLER procedu re are in the results section. BACTERIA CULT, Routine 12/30/2021 2:03 Results fo r this AEROBE/ANAEROBE+SUSC PM TABLE FILLER procedu re are in the results section. ARTHROPLASTY 12/30/2021 12:34 Shoulder Joint RESECTION SHOULDER PM TABLE FILLER Disorder Left documented in this encounter Results Place peripherally inserted central catheter (PICC) (01/01/2022 12:11 PM TABLE FILLER) Narrative MMODAL - 01/01/2022 12:11 PM TABLE FILLER Soraida Dick R.N. ? 01/01/2022 12:13 PM [...] to release the adhesive from the skin. [email or web address]/products/secur [email or web address] Dario Carrera M.D. PROCEDURE/MINOR SURGICAL ORD ERABLES Performing Organization Address City/[facility]/ZIP Code Phon e Number MMODAL MMODAL NA Bacteria / Mandi Culture, Blood #2 (12/31/2021 4:04 PM TABLE FILLER) [facility] Method Time Signature Bacteria/Valerie No growth 01/05/2022 DTL da Culture, after 5 5:02 PM TABLE FILLER Blood days of incubation. Specimen (Source) Anatomical Collection Method Collection Time Re ceived Time Location / / Volume Laterality Blood (Blood, 12/31/2021 4:04 12/31/2021 4:51 Peripheral Draw) PM TABLE FILLER PM TABLE FILLER Comment: Specimen Source Site: Blood Narrative [facility] [place] - 01/05/2022 5:02 PM TABLE FILLER Received Bactec aerobic and Bactec anaer obic bottles Dario Carrera M.D. LAB MICROBIOLOGY - GENERAL O RDERASARAH Performing Organization Address [facility]/ZIP [facility] Phon e Number [facility] [id number] [place] [address] Bacteria / Mandi Culture, Blood #1 (12/31/2021 3:52 PM TABLE FILLER) [facility] Method Time Signature Bacteria/Valerie No growth 01/05/2022 DTL da Culture, after 5 5:02 PM TABLE FILLER Blood days of incubation. Specimen (Source) Anatomical Collection Method Collection Time Re ceived Time Location / / Volume Laterality Blood (Blood, 12/31/2021 3:52 12/31/2021 4:50 Peripheral Draw) PM TABLE FILLER PM TABLE FILLER Comment: Specimen Source Site: Blood Narrative [facility] [place] - 01/05/2022 5:02 PM TABLE FILLER Received Bactec aerobic and Bactec anaer obic bottles Dario Carrera M.D. LAB MICROBIOLOGY - GENERAL O RDERABLES Performing Organization Address City/[facility]/ZIP Code Phon e Number [facility] - [address] [place], [place] [address] [facility] [place] [place] [address] [facility] [address] (ABNORMAL) CBC with Differential, Blood (12/31/2021 4:25 AM TABLE FILLER) [facility] gist Method Time Signature Hemoglobin 8.9 (L) 11.6 - 12/31/2021 DTL 15.0 g/dL 5:15 AM TABLE FILLER Hematocrit 27.3 (L) 35.5 - 12/31/2021 DTL 44.9 % 5:15 AM TABLE FILLER Erythrocytes 3.26 (L) 3.92 - 12/31/2021 DTL 5.13 5:15 AM TABLE FILLER x10(12)/L MCV 83.7 78.2 - 12/31/2021 DTL 97.9 fL 5:15 AM TABLE FILLER RBC Distrib Width 19.6 (H) 12.2 - 12/31/2021 DTL 16.1 % 5:15 AM TABLE FILLER Platelet Count 274 157 - 371 12/31/2021 DTL x10(9)/L 5:15 AM TABLE FILLER Leukocytes 6.6 3.4 - 9.6 12/31/2021 DTL x10(9)/L 5:15 AM TABLE FILLER Neutrophils 4.91 1.56 - 12/31/2021 DTL 6.45 5:15 AM TABLE FILLER x10(9)/L Lymphocytes 1.10 0.95 - 12/31/2021 DTL 3.07 5:15 AM TABLE FILLER x10(9)/L Monocytes 0.61 0.26 - 12/31/2021 DTL 0.81 5:15 AM TABLE FILLER x10(9)/L Eosinophils <0.03 0.03 - 12/31/2021 DTL 0.48 5:15 AM TABLE FILLER x10(9)/L Basophils <0.03 0.01 - 12/31/2021 DTL 0.08 5:15 AM TABLE FILLER x10(9)/L Specimen Anatomical Collection Method Collection Time Receive d Time (Source) Location / / Volume Laterality Blood (Blood, 12/31/2021 4:25 AM 12/31/19 5:04 Venous) TABLE FILLER AM TABLE FILLER Dario Carrera M.D. LAB BLOOD ADD-ON Performing Organization Address City/State/ZIP Code Phon e Number [facility] - [address] [place], [place] [address] [facility] [place] [address] [facility] 200 [facility] (ABNORMAL) Basic Metabolic Panel (12/31/2021 4:25 AM TABLE FILLER) P athologist Signature Potassium, S 4.4 3.6 - 5.2 12/31/2021 DTL mmol/L 5:35 AM TABLE FILLER Sodium, S 134 (L) 135 - 145 12/31/2021 DTL mmol/L 5:35 AM TABLE FILLER Chloride, S 103 98 - 107 12/31/2021 DTL mmol/L 5:35 AM TABLE FILLER Bicarbonate, S 22 22 - 29 12/31/2021 DTL mmol/L 5:35 AM TABLE FILLER Anion Gap 9 7 - 15 12/31/2021 DTL 5:35 AM TABLE FILLER BUN (Blood Urea 21 6 - 21 12/31/2021 DTL Nitrogen), S mg/dL 5:35 AM TABLE FILLER Creatinine 0.74 0.59 - 12/31/2021 DTL 1.04 mg/dL 5:35 AM TABLE FILLER eGFR-Non 90 >=60 12/31/2021 DTL Black/ mL/min/BSA 5:35 AM TABLE FILLER [place] Comment: ----ADDITIONAL INFORMATION---- Estimated GFR calculated using the 2009 CKD_EPI creatinine equation. eGFR-Black/ >90 >=60 mL/min/BSA 2021 5:35 AM TABLE FILLER DTL Comment: ----ADDITIONAL INFORMATION---- Estimated GFR calculated using the 2009 CKD_EPI creatinine equation. Calcium, Total, S 8.7 8.6 - 10.0 mg/dL 12/31/2021 5:35 AM TABLE FILLER DTL Glucose, S 138 70 - 140 mg/dL 12/31/2021 5:35 AM TABLE FILLER D TL Specimen Anatomical Collection Method Collection Time Receive d Time (Source) Location / / Volume Laterality Blood (Blood, 12/31/2021 4:25 AM 12/31/19 5:18 Venous) TABLE FILLER AM TABLE FILLER Dario Carrera M.D. LAB BLOOD ADD-ON Performing Organization Address City/State/ZIP Code Phon e Number [facility] - [address] [place], [place] [address] [place] [address] [facility] [address] DX Shoulder Left 1 View (12/30/2021 3:41 PM TABLE FILLER) Anatomical Region Laterality Modality Upper Extremity, Shoulder, Musculoskeletal RST LOS, Left Computed Radiography Musculoskeletal ARZ LOS, Muskuloskeletal FLA LOS Specimen (Source) Anatomical Collection Method Collection Time Re ceived Time Location / / Volume Laterality 12/30/2021 3:54 PM TABLE FILLER Impressions 12/30/2021 3:59 PM TABLE FILLER Postoperative changes of a left shoulder arthroplasty resection and placement of an antibiotic spacer. Negat lalo for postoperative purposes. Narrative 12/30/2021 3:59 PM TABLE FILLER EXAM: ??DX SHOULDER LEFT 1 VIEW Procedure Note Timothy Resendiz M.D. - 12/30/2021Forma tting of this note might be different from the original. EXAM: DX SHOULDER LEFT 1 VIEW IMPRESSION: Postoperative changes of a left shoulder arthroplasty resection and placement of an antibiotic spacer. Negat lalo for postoperative purposes. Dario [facility] Surgical Pathology, Frozen Lab (12/30/2021 2:15 PM TABLE FILLER) Component Value Ref Test Analysis Performed At [facility] Range Method Time Signature 01/01/2022 [facility] 8:22 AM TABLE FILLER Participated in Kelly Howard 01/01/2022 [facility] the D.O.-Pathology 8:22 AM TABLE FILLER Interpretation Resident Report Solomon Marcum M.D. 01/01/2022 [facility] electronically 8:22 AM TABLE FILLER signed by I verify that I have examined all relevant slides/materials for the specimen(s) and rendered or confirmed the diagnosis. Frozen A. ??Synovium, left shoulder, excision: ??Synovial tissue 01/01/2022 [facility] Intraoperative with 8:22 AM TABLE FILLER Report acute inflammation (>5 neutrophils/high power field). Signed by Solomon Marcum M.D. 12/31/2021 8:17 AM Gross Description A. ??Received fresh labeled left shoulder is a 1.4 x 0.9 x 01/01/2022 [facility] 0.4 cm aggregate of red and campbell fibrous tissue, which is 8:22 AM TABLE FILLER soft. ??All submitted for frozen and permanent sections. Grossed by Nikki Gallardo. Block Summary A Left shoulder 01/01/2022 [facility] A1 Left shoulder-frozen 8:22 AM TABLE FILLER Interpretation FINAL DIAGNOSIS 01/01/2022 [facility] 8:22 AM TABLE FILLER A. ??Synovium, left shoulder, excision: ??Synovial tissue with acute inflammation (>5 neutrophils/high power field). Specimen (Source) Anatomical Collection Method Collection Time Re ceived Time Location / / Volume Laterality Tissue (Shoulder, 12/30/2021 2:15 PM Left) TABLE FILLER Narrative This result has an attachment that is no t available. Cyrus Polk M.D. LAB SURG PATH ORDERABLES Performing Organization Address [facility] Phon e Number [facility] - [address] [place], [place] [id number] [place] [address] [address] [facility] Bacteria Cult, Aerobe / Anaerobe+Susc (12/30/2021 2:11 PM TABLE FILLER) [facility] Method Time Signature Bacteria Cult, No growth 01/13/2022 DTL Aerobe/Anaerob after 14 4:02 PM TABLE FILLER e+Susc days of incubation. Specimen Anatomical Collection Method Collection Time Receive d Time (Source) Location / / Volume Laterality Shoulder, Left 12/30/2021 2:11 PM 022 3:38 TABLE FILLER PM TABLE FILLER Comment: Specimen Source Site: Tissue #4 Narrative [facility] - [facility] - 01/13/2022 4:02 PM TABLE FILLER Bacterial Culture: Placed in Bactec aero bic and Bactec anaerobic bottles Cyrus Polk M.D. LAB MICROBIOLOGY - GENERAL O RDERABLES Performing Organization Address City/[facility] Phon e Number [facility] - [address] [place], [place] [address] [facility] D[place], [place] [id number] [place] [address] [address] [facility] (ABNORMAL) Bacteria Cult, Aerobe / Anaerobe+Susc (12/30/2021 2:05 PM TABLE FILLER) Component Value Ref Test Analysis [facility] Method Time Signature Bacteria STAPHYLOCOCCUS EPIDERMIDIS 01/11/2022 DT L Cult, Growth after 4 days 7:55 AM TABLE FILLER Aerobe/Anaero (A) be+Susc Comment: Semi-Urgent Result. Semi-Urgent This is a semi-urgent result [facility] - (ORTIZ) [facility] S Specimen Anatomical Collection Method Collection Time Receive d Time (Source) Location / / Volume Laterality Synovial Fluid, 12/30/2021 2:05 PM 2021 3:17 Left Shoulder TABLE FILLER PM TABLE FILLER Comment: Specimen Source Site: Fluid Narrative [facility] - [facility] - 01/11/2022 7:55 AM TABLE FILLER Bacterial Culture: Placed in Bactec aero bic [...] Number [facility] - [address] [place] [address] [facility] [place] [address] [facility] [address] [facility] Bacteria Cult, Aerobe / Anaerobe+Susc (12/30/2021 2:04 PM TABLE FILLER) [facility] Method Time Signature Bacteria Cult, No growth 01/13/2022 DTL Aerobe/Anaerob after 14 4:02 PM TABLE FILLER e+Susc days of incubation. Specimen Anatomical Collection Method Collection Time Receive d Time (Source) Location / / Volume Laterality Shoulder, Left 12/30/2021 2:04 PM 022 3:34 TABLE FILLER PM TABLE FILLER Comment: Specimen Source Site: Tissue #[address] [facility] - 01/13/2022 4:02 PM TABLE FILLER Bacterial Culture: Placed in Bactec aero bic and Bactec anaerobic bottles Cyrus Polk M.D. LAB MICROBIOLOGY - GENERAL O MARY Performing Organization Address City/[facility] Phon e Number [facility] - [address] [place], [place] [address] [facility] [address] Bacteria Cult, Aerobe / Anaerobe+Susc (12/30/2021 2:03 PM TABLE FILLER) [facility] Method Time Signature Bacteria Cult, No growth 01/13/2022 DTL Aerobe/Anaerob after 14 4:02 PM TABLE FILLER e+Susc days of incubation. Specimen Anatomical Collection Method Collection Time Receive d Time (Source) Location / / Volume Laterality Shoulder, Left 12/30/2021 2:03 PM 022 3:37 TABLE FILLER PM TABLE FILLER Comment: Specimen Source Site: Tissue #[address] [facility] - 01/13/2022 4:02 PM TABLE FILLER Bacterial Culture: Placed in Bactec aero bic and Bactec anaerobic bottles Cyrus Polk M.D. LAB MICROBIOLOGY - GENERAL O MARY Performing Organization Address City/State/[facility] Code Phon e Number [facility] - [address] [place], [place] [address] [facility] [place], [place] [id number] [place] [address] Bacteria Cult, Aerobe / Anaerobe+Susc (12/30/2021 2:03 PM TABLE FILLER) [facility] Method Time Signature Bacteria Cult, No growth 01/13/2022 DTL Aerobe/Anaerob after 14 4:02 PM TABLE FILLER e+Susc days of incubation. Specimen Anatomical Collection Method Collection Time Receive d Time (Source) Location / / Volume Laterality Shoulder, Left 12/30/2021 2:03 PM 022 3:31 TABLE FILLER PM TABLE FILLER Comment: Specimen Source Site: Tissue #[address] [facility] - [facility] - 01/13/2022 4:02 PM TABLE FILLER Bacterial Culture: Placed in Bactec aero bic and Bactec anaerobic bottles Cyrus Polk M.D. LAB MICROBIOLOGY - GENERAL O RDERABLES Performing Organization Address City/State/ZIP Code Phon e Number [facility] - [address] [place], [place] [address] [facility] [place] [address] [facility] [address] [...] tablet 1,000 mg Given 12/30/2021 12:02 PM TABLE FILLER 1,00 0 mg (TYLENOL) 1,000 mg, oral, Once, On Tue12/30/21 at 1215, For 1 dose, Pre-Op acetaminophen tablet 1,000 mg (TYLENOL) Given 01/01/2022 11:36 AM TABLE FILLER 1,000 mg 1,000 mg, oral, Every 6 hours, First dose on Tue12/30/21 at 1800 Given 01/01/2022 6:28 AM TABLE FILLER 1,000 mg Given 12/31/2021 11:51 PM TABLE FILLER 1,000 mg albuterol nebulizer solution 2.5 mg Given 12/31/2021 4:44 PM TABLE FILLER 2.5 mg 2.5 mg, nebulization, Every 6 hours PRN, wheezing, Starting on Tue12/30/21 at 1711, Albuterol nebs were interchanged for albuterol/levalbuterol MDI (same frequency) atorvastatin tablet 80 mg (LIPITOR) Given 12/31/2021 8:57 PM TABLE FILLER 80 mg 80 mg, oral, Daily at bedtime, First dose on Tue12/30/21 at 2100 Given 12/30/2021 9:55 PM TABLE FILLER 80 mg benzonatate capsule 100 mg (TESSALON PER LES) Given 01/01/2022 3:10 AM TABLE FILLER 100 mg 100 mg, oral, 3 times daily PRN, cough, Starting on Tue12/31/21 at 1702, Swallow whole. Do NOT crush, chew or open capsule. Given 12/31/2021 5:39 PM TABLE FILLER 100 mg bupivacaine PF 0.2 % 550 mL in NaCl New Bag 01/01/2022 3:15 PM TABLE FILLER 6 mL/hr 6 mL/hr 0.9% On-Q pain pump (CB004) 6 mL/hr, nerve catheter, Continuous, Starting on Tue01/01/22 at 1500, PACU & Post-Op, Location: Nerve Catheter Location, Nerve Catheter Location: Interscalene, Device: On-Q Pump bupivacaine PF 0.2 % in Rate/Dose Verify 01/01/2022 1:00 AM TABLE FILLER 6 mL/ hr 6 mL/hr NaCl 0.9% 341 mL infusion (MARCAINE) 6 mL/hr, nerve catheter, Continuous, Starting on Tue12/30/21 at 1600, PACU & Post-Op, Nerve Catheter Location: Interscalene, Device: Hospital Infusion Pump Rate/Dose Verify 12/31/2021 12:11 AM TABLE FILLER 6 mL/hr 6 mL/hr New Bag 12/30/2021 3:49 PM TABLE FILLER 6 mL/hr 6 mL/hr buPROPion XL 24 hr tablet 150 mg (WELLBUTRIN Given 02/2022 8:35 AM TABLE FILLER 150 mg XL) 150 mg, oral, Every morning, First dose on Tue12/31/21 at 0900, Swallow whole. Do NOT crush, chew, or split tablet. Given 12/31/2021 8:16 AM TABLE FILLER 150 mg calcium carbonate chewable tablet Given 12/31/2021 11: 46 PM TABLE FILLER 400 mg of calcium 400 mg of calcium (TUMS) 400 mg of calcium, oral, Every 2 hour PRN, indigestion, Starting on Tue12/30/21 at 1711, Doses listed are in mg of elemental calcium. Take with food. 500 mg calcium carbonate contains 200 mg of elemental calcium. Given 12/31/2021 9:15 PM TABLE FILLER 400 mg of calcium carboxymethylcellulose 0.5 % ophthalmic Given 01/01/2022 1:15 AM TABLE FILLER 2 drops solution 2 drop (REFRESH PLUS) 2 drop, both eyes, 4 times daily PRN, dry eyes, Starting on Tue12/30/21 at 1711 Given 12/31/2021 12:31 PM TABLE FILLER 2 drops Given 12/31/2021 12:23 AM TABLE FILLER 2 drops ceFAZolin in dextrose (iso-os) IVPB 2 New Bag 01/01/2022 6:27 AM TABLE FILLER 2 g 200 mL/hr g (ANCEF) 2 g, intravenous, at 200 mL/hr, Administer over 30 Minutes, Every 8 hours, First dose on Tue12/30/21 at 2200, Start within 8 hours of last IV dose., Drug Monitoring Program: Pharmacist to adjust medication dosing based on indication and drug clearance factors., Indications: Bone and/or joint infection New Bag 12/31/2021 10:32 PM TABLE FILLER 2 g 200 mL/hr New Bag 12/31/2021 2:21 PM TABLE FILLER 2 g 200 mL/hr cefTRIAXone in dextrose (iso-osm) IVPB New Bag 01/01/2022 2:38 PM TABLE FILLER 2 g 200 mL/hr 2 g (ROCEPHIN) 2 g, intravenous, at 200 mL/hr, Administer over 15 Minutes, Daily before lunch, First dose on Tue01/01/22 at 1345, Drug Monitoring Program: Pharmacist to adjust medication dosing based on indication and drug clearance factors., Indications: Bone and/or joint infection cetirizine tablet 10 mg (ZyrTEC) Given 01/01/2022 8:35 AM TABLE FILLER 10 mg 10 mg, oral, 2 times daily, First dose on Tue12/30/21 at 2100, Drug Monitoring Program: Pharmacist to adjust medication dosing based on indication and drug clearance factors. Given 12/31/2021 8:57 PM TABLE FILLER 10 mg Given 12/31/2021 8:16 AM TABLE FILLER 10 mg cholecalciferol (vitamin D3) tablet 25 m cg Given 01/01/2022 8:35 AM TABLE FILLER 25 mcg 25 mcg, oral, Daily, First dose on Tue12/31/21 at 0900, cholecalciferol (vitamin D3) orderable was interchanged for cholecalciferol (vitamin D3) tablet/capsule Given 12/31/2021 8:16 AM TABLE FILLER 25 mcg D5W infusion 10-250 mL/hr, intravenous, [...] 5 mg (VALIUM) Given 12/31/2021 12:31 PM TABLE FILLER 5 mg 5 mg, oral, 4 times daily PRN, muscle spasms, Starting on Tue12/30/21 at 2243 Given 12/31/2021 1:59 AM TABLE FILLER 5 mg diphenhydrAMINE capsule 25 mg (BENADRYL) 25 mg, oral, Daily PRN, itching, Starting on Tue 2 at 0854 diphenhydrAMINE capsule 75 mg (BENADRYL) Given 01/01/2022 8:49 AM TABLE FILLER 75 mg 75 mg, oral, Bedtime PRN, sleep, Starting on Tue12/30/21 at 1715 FLUoxetine capsule 80 mg (PROzac) Given 01/01/2022 8:34 AM TABLE FILLER 80 mg 80 mg, oral, Daily, First dose on Tue12/31/21 at 0900, FLUoxetine orderable was interchanged for FLUoxetine tablet/capsule Given 12/31/2021 8:16 AM TABLE FILLER 80 mg fluticasone furoate 100 mcg/actuation Given 01/01/2022 8:[address] 2 puffs inhaler 2 puff (ARNUITY ELLIPTA) 2 puff, inhalation, 2 times daily, First dose on Tue12/30/21 at 2100, fluticasone furoate 100 mcg was interchanged for fluticasone MDI 110 mcg Given 12/31/2021 9:04 PM TABLE FILLER 2 puffs Given 12/31/2021 8:17 AM TABLE FILLER 2 puffs granisetron (PF) injection 1 mg (KYTRIL) Given 12/30/2021 3:57 PM TABLE FILLER 1 mg 1 mg, intravenous, Once as needed, nausea, vomiting, Starting on Tue12/30/21 at 1546, For 1 dose, PACU (only), If patient does not respond to ondansetron or haloperidol. (order of antiemetic administration - ondansetron then haloperidol then granisetron) haloperidol lactate injection 1 mg (HALD OL) Given 12/30/2021 4:31 PM TABLE FILLER 1 mg 1 mg, intravenous, Every 6 [...] injection 0.2 mg Given 12/30/2021 4:17 PM TABLE FILLER 0.2 mg (DILAUDID) 0.2 mg, intravenous, Every 5 min PRN, moderate pain or score 4-6 of 10, severe pain or score 7-10 of 10, Starting on Tue12/30/21 at 1546, PACU (only), Up to maximum total dose of 2 mg Given 12/30/2021 4:07 PM TABLE FILLER 0.2 mg Given 12/30/2021 3:55 PM TABLE FILLER 0.2 mg HYDROmorphone (PF) injection 0.4 mg Given 01/01/2022 4:56 AM TABLE FILLER 0.4 mg (DILAUDID) 0.4 mg, intravenous, Every 2 hour PRN, severe pain or score 7-10 of 10, Starting on Tue12/30/21 at 1711, For 5 doses, May administer if pain is greater than 7 after scheduled and PRN regimen exhausted. If pain remains greater than 7, notify primary service. Given 12/31/2021 11:35 AM TABLE FILLER 0.4 mg Given 12/31/2021 4:14 AM TABLE FILLER 0.4 mg ipratropium-albuteroL 0.5-2.5 mg/3 mL nebulizer Given 01/01/2022 3:15 AM TABLE FILLER 3 mL solution 3 mL (DUONEB) 3 mL, nebulization, 4 times daily PRN, shortness of breath, wheezing, Starting on Tue12/30/21 at 1711 ketamine injection 10 mg (KETALAR) Given 12/30/2021 12:38 PM TABLE FILLER 10 mg 10 mg, intravenous, Once, On Tue12/30/21 at 1300, For 1 dose, Pre-Op lactated ringers Rate/Dose Change 01/01/2022 1:00 AM TABLE FILLER 20 mL/hr 20 mL/hr 75 mL/hr, intravenous, Continuous, Starting on Tue12/30/21 at 1715, Until patient has 500cc po intake New Bag 12/31/2021 11:46 PM TABLE FILLER 75 mL/hr 75 mL/hr Rate/Dose Change 12/31/2021 3:55 AM TABLE FILLER 20 mL/hr 20 mL/hr lactated ringers Continued from OR 12/30/2021 4:00 PM TABLE FILLER 75 mL/hr 75 mL/hr 75 mL/hr, intravenous, Continuous, Starting on Tue12/30/21 at 1600, PACU & Post-Op lamoTRIgine tablet 200 mg (LaMICtaL) Given 01/01/2022 8:34 AM TABLE FILLER 200 mg 200 mg, oral, 2 times daily, First dose on Tue12/30/21 at 2100 Given 12/31/2021 8:56 PM TABLE FILLER 200 mg Given 12/31/2021 8:16 AM TABLE FILLER 200 mg midazolam (PF) injection 1 mg (VERSED) Given 12/30/2021 12:38 PM TABLE FILLER 2 mg 1 mg, intravenous, Every 2 [...] 4 mg (ZOFRAN) Given 01/01/2022 1:16 AM TABLE FILLER 4 mg 4 mg, intravenous, Every 6 hours PRN, nausea, vomiting, Starting on Tue12/30/21 at 1711, For 48 hours, Reassess for nausea or vomiting after at least 10 minutes. If nausea or vomiting persists administer next ordered antiemetic medications (order for antiemetic medication administration ondansetron then haloperidol then promethazine). Given 12/31/2021 8:16 AM TABLE FILLER 4 mg oxyCODONE 12 hr tablet 20 mg (OxyCONTIN) Given 12/30/2021 12:35 PM TABLE FILLER 20 mg 20 mg, oral, Once, On Tue12/30/21 at 1300, For 1 dose, Pre-Op, Swallow whole. Do NOT crush, chew, or split tablet. oxyCODONE IR tablet 10 mg (ROXICODONE) Given 12/31/2021 10:43 AM TABLE FILLER 10 mg 10 mg, oral, Every 4 hours PRN, severe pain or score 7-10 of 10, Starting on Tue12/30/21 at 1536 Given 12/31/2021 6:19 AM TABLE FILLER 10 mg Given 12/31/2021 12:22 AM TABLE FILLER 10 mg oxyCODONE IR tablet 10 mg (ROXICODONE) Given 12/31/2021 2:21 PM TABLE FILLER 10 mg 10 mg, oral, Every 4 hours PRN, severe pain or score 7-10 of 10, Starting on Tue12/31/21 at 1415 oxyCODONE IR tablet 10 mg (ROXICODONE) Given 01/01/2022 2:38 PM TABLE FILLER 10 mg 10 mg, oral, Every 3 hours PRN, severe pain or score 7-10 of 10, Starting on Tue12/31/21 at 1745 Given 01/01/2022 11:35 AM TABLE FILLER 10 mg Given 01/01/2022 7:07 AM TABLE FILLER 10 mg oxyCODONE IR tablet 5 mg (ROXICODONE) 5 mg, oral, Every 3 hours PRN, moderate pain or score 4-6 of 10, Starting on Clementine 12/31/21 at 1745, If patient is >75 consider changing to 2.5-5mg scale pantoprazole DR tablet 40 mg (PROTONIX) Given 01/01/2022 3:46 PM TABLE FILLER 40 mg 40 mg, oral, 2 times daily before breakfast and dinner, First dose on Tue12/31/21 at 0700, pantoprazole 40 mg oral twice daily was interchanged for esomeprazole 20 or 40 mg oral twice daily Swallow whole. Do NOT crush, chew, or split tablet. Given 01/01/2022 6:29 AM TABLE FILLER 40 mg Given 12/31/2021 4:47 PM TABLE FILLER 40 mg pregabalin capsule 600 mg (LYRICA) Given 01/01/2022 8:34 AM TABLE FILLER 600 mg 600 mg, oral, 2 times daily, First dose on Tue12/30/21 at 2100 Given 12/31/2021 8:56 PM TABLE FILLER 600 mg Given 12/31/2021 8:15 AM TABLE FILLER 600 mg QUEtiapine tablet 50 mg (SEROquel) Given 12/31/2021 8:57 PM TABLE FILLER 50 mg 50 mg, oral, Daily at bedtime, First dose on Tue12/30/21 at 2100 Given 12/30/2021 9:55 PM TABLE FILLER 50 mg scopolamine base 1 mg Medication Applied 12/30/2021 12:02 PM 1 patch Behind Left Ear over 3 days 1 patch TABLE FILLER (TRANSDERM SCOP) 1 patch, transdermal, Administer over 72 Hours, Once as needed, nausea and vomiting, Starting on Tue12/30/21 at 1201, For 1 dose, Pre-Op, Contains 1.5 mg to deliver 1 mg/72 hours. sennosides-docusate sodium 8.6-50 mg per Given 01/01/2022 8:35 A M TABLE FILLER 1 tablet tablet 1 tablet (SENOKOT-S) 1 tablet, oral, 2 times daily, First dose on Tue12/30/21 at 2100, Do not give if patient has diarrhea. Given 12/31/2021 8:57 PM TABLE FILLER 1 tablet Given 12/31/2021 8:16 AM TABLE FILLER 1 tablet sodium chloride 0.9 % injection [...] injection 3 mL Given 12/31/2021 8:18 AM TABLE FILLER 3 mL 3 mL, intravenous, Every 12 hours scheduled, First dose on Tue12/30/21 at 2100, PACU & Post-Op, Peripheral Intravenous Catheter and Rapid Infusion Catheter, when no infusion to maintain patency Given 12/30/2021 9:53 PM TABLE FILLER 3 mL zonisamide capsule 300 mg (ZONEGRAN) Given 01/01/2022 8:35 AM TABLE FILLER 300 mg 300 mg, oral, 2 times daily, First dose on Tue12/30/21 at 2100, Swallow whole. Do NOT crush, chew or open capsule. Given 12/31/2021 8:57 PM TABLE FILLER 300 mg Given 12/31/2021 8:16 AM TABLE FILLER 300 mg documented in this encounter Active and Recently Administered Medications Times are shown in TABLE FILLER. Scheduled Medication Order 12/30/2021 12/31/2021 01/01/2022 acetaminophen [...] 1419 (Given - Provider: Emre Rodriguez APRN, CRYSTAL GRINDER) 2,000 mg (rounded from 1,747.5 mg = [...] dropping tourniquet zonisamide capsule 300 mg (ZONEGRAN) 4955 (Given - Pro vider: Ezequiel Hernandez, R.N.) [...] mg of calcium, oral, Every 2 hour [place] N, indigestion, Starting on Tue12/30/21 at 1711, [...] over 3 days 1 patch (TRANSDERM S HAM CURER) (CANCELED) 1202 (Medication Applied - Provider: Manda [...] documented as of this encounter Care Teams Drawbench Operator Relationship Specialty Start Date End Date Elsewhere, Pcp PCP - General Family Medicine 12/25/21 documented as of this encounter
--- OUTSIDE RECORDS SUMMARY | 2022-09-09 07:58 | XMS_ITS | Encounter Summary ---
:1965 Author Organization [facility] Address [address] [place] [address] Care Team Providers Name Role Phone Elsewhere, Pcp Primary Care Provider Unavailable Encounter Details Date Type Department Care Team Description 01/08/2022 Orders Only Pharmacy Prior Auth RO Elsewhere, Pcp [phone] Social History Tobacco Use Types Packs/Day Years [...] you attend mormon or Patient refused 2021 buddhist services? Do [...] documented as of this encounter Care Teams Renovator Machine Operator Relationship Specialty Start Date End Date Elsewhere, Pcp PCP - General Family Medicine 12/25/21 documented as of this encounter
--- OUTSIDE RECORDS SUMMARY | 2022-09-09 07:59 | XMS_ITS | Encounter Summary ---
:1965 Author Organization [facility] Address [address] [place] [address] Care Team Providers Name Role Phone Elsewhere, Pcp Primary Care Provider Unavailable Encounter Details Date Type Department Care Team Description 12/30/2021 Anesthesia Event RST [facility] OR Clifford Young M.D. [address] [place] [phone] [address] [facility] Collin Fernández M.D. [address] [place] [phone] [place] [address] Anesthesia Record Procedure Summary [...] h andoff to the receiving staff during [facility] we 1. Identified the patient 2. [...] Ayakalashell Andreyscout howard T, (created via procedure CITRIX CONSULTANT, SLIP FILLER CITRIX CONSULTANT, CRN A documentation); Mask Ventilation: Easy mask; [...] you attend yazdanism or Patient refused 2021 buddhist services? Do [...] the highest technical, or vocational p [facility] degree you have received? Sex Assigned at Date Recorded Female 03/01/2019 10:12 AM CDT documented as of this encounter OR Notes Anesthesia Postprocedure Evaluation - Clifford Young M.D. - 12/30/2021 3:55 PM CST Patient: Angie Mosquera Procedure Summary Date: 12/30/21 Room / Location: [address] / [facility] in [place], [place] Anesthesia Start: 1250 Anesthesia Stop: 1550 [...] Post Op nausea/vomiting: none Hydration status: euvolemic CLIMBING TEAM MEMBER Anesthesia Procedure Notes - Emre Rodriguez APRN, CRNA - 12/30/2021 2:29 PM ROCK CLIMBING TEAM MEMBER Associated Order(s): Airway Airway Date/Time: 12/30/2021 1:02 [...] successful Airway event: no complications ATTESTATION STATEMENT CLIMBING TEAM MEMBER Anesthesia Preprocedure Evaluation - Clifford Young M.D. - 12/30/2021 1:23 PM CST Preprocedure Anesthesia & H&P Assessment Procedure Summary Anesthesia Start Date/Time: 12/30/21 1250 Procedure: ARTHROPLASTY RESECTION SHOULDER. 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 Location: [address] / [facility] in [place], [place] Providers: Cyrus Polk M.D. Pertinent components [...] with patient /legal guardian or through an income auditor. Risks/Benefits/Alternatives of Blood transfusion discussed with patient / legal guardian, including an opportunity to ask questions and/or decline some or all transfusion therapies. The patient / legalguardian consented to the use of all blood products, as deemed medically necessary Approval to Proceed: approved for anesthesia CLIMBING TEAM MEMBER Anesthesia Procedure Notes - Clifford Khanna M.D. - 12/30/2021 12:56 PM ROCK CLIMBING TEAM MEMBER Associated Order(s): Regional Block Regional Block Date/Time: [...] successful procedure Other complications: none ATTESTATION STATEMENT CLIMBING TEAM MEMBER documented in this encounter Plan of Treatment Not on filedocumented as of this encounter Procedures Procedure Name Priority Date/Time Associated Comments Diagnosis LDA ANE ENDOTRACHEAL Routine 12/30/2021 1:02 PM R esults for this AIRWAY ROCK CLIMBING TEAM MEMBER procedure are i n the results section. MC ANE NERVE BLOCK Routine 12/30/2021 12:56 Resul ts for this WITH ULTRASOUND PM ROCK CLIMBING TEAM MEMBER procedure ar e in the results section. LDA ANE UPPER Routine 12/30/2021 12:56 Results fo r this EXTREMITY PNC PM ROCK CLIMBING TEAM MEMBER procedure are in the results section. IL US GUIDE PLC NDL Routine 12/30/2021 12:56 Resu lts for this PM ROCK CLIMBING TEAM MEMBER procedure are i n the results section. IL INJ ANES BRACHIAL Routine 12/30/2021 12:56 Res ults for this PLEXUS CONT PM ROCK CLIMBING TEAM MEMBER procedure are i n the results section. documented in this encounter Results LDA ANE ENDOTRACHEAL AIRWAY (12/30/2021 1:02 PM ROCK CLIMBING TEAM MEMBER) Narrative Emre Rodriguez APRN, CRNA - 12/30/2021 1:02 PM ROCK CLIMBING TEAM MEMBER Emre Rodriguez APRN, CRNA ? 12/30/2021 ??2:30 [...] ATTESTATION STATEMENT Clifford Young M.D. ANESTHESIA ORDERABLES IL INJ ANES BRACHIAL PLEXUS CONT, IL US GUIDE PLC NDL, LDA ANE UPPER EXTREMITY PNC, MC ANE NERVE BLOCK WITH ULTRASOUND (12/30/2021 12:56 PM ROCK CLIMBING TEAM MEMBER) Narrative Clifford Khanna M.D. - 12/30/2021 12:56 P M ROCK CLIMBING TEAM MEMBER Clifford Khanna M.D. ? 12/30/2021 12:57 PM [...] 5 % injection Given 12/30/2021 1:52 PM ROCK CLIMBING TEAM MEMBER 250 mL intravenous, As needed, Starting on Tue12/30/21 at 1352, Anesthesia Intra-op bupivacaine PF 0.5 % (5 mg/mL) injection Given 12/30/2021 12:45 PM ROCK CLIMBING TEAM MEMBER 10 mL (MARCAINE) intrathecal, As needed, Starting on Tue12/30/21 at 1245, Anesthesia Intra-op ceFAZolin injection 2,000 mg (ANCEF) Given 12/30/2021 2:19 PM ROCK CLIMBING TEAM MEMBER 2 g 2,000 mg (rounded from 1,747.5 [...] dexAMETHasone injection (DECADRON) Given 12/30/2021 1:09 PM ROCK CLIMBING TEAM MEMBER 8 mg intravenous, As needed, Starting on Tue12/30/21 at 1309, Anesthesia Intra-op diphenhydrAMINE injection (BENADRYL) Given 12/30/2021 1:32 PM ROCK CLIMBING TEAM MEMBER 12.5 mg intravenous, As needed, Starting on Tue12/30/21 at 1332, Anesthesia Intra-op ePHEDrine (PF) injection Given 12/30/2021 1:58 PM ROCK CLIMBING TEAM MEMBER 10 mg intravenous, As needed, Starting on Tue12/30/21 at 1346, Anesthesia Intra-op Given 12/30/2021 1:46 PM ROCK CLIMBING TEAM MEMBER 5 mg Given 12/30/2021 1:24 PM ROCK CLIMBING TEAM MEMBER 10 mg fentaNYL injection (SUBLIMAZE) Given 12/30/2021 3:12 PM ROCK CLIMBING TEAM MEMBER 50 mcg intravenous, As needed, Starting on Tue12/30/21 at 1512, Anesthesia Intra-op ketamine injection (KETALAR) Given 12/30/2021 2:43 PM ROCK CLIMBING TEAM MEMBER 20 mg intravenous, As needed, Starting on Tue12/30/21 at 1443, Anesthesia Intra-op lactated ringers New Bag 12/30/2021 12:53 PM ROCK CLIMBING TEAM MEMBER intravenous, Continuous Infusion: Per Instructions PRN, Starting on Tue12/30/21 at 1253, Anesthesia Intra-op ondansetron (PF) injection (ZOFRAN) Given 12/30/2021 3:00 PM ROCK CLIMBING TEAM MEMBER 4 mg intravenous, As needed, Starting on Tue12/30/21 at 1500, Anesthesia Intra-op phenylephrine 80 mcg/mL in Rate/Dose 12/30/2021 3:00 0.4 mcg/kg/min 20.97 NaCl 0.9% 250 mL infusion Change PM ROCK CLIMBING TEAM MEMBER mL/hr intravenous, Continuous Infusion: Per Instructions PRN, Starting on Tue12/30/21 at 1404, Anesthesia Intra-op Rate/Dose Change 12/30/2021 2:36 PM ROCK CLIMBING TEAM MEMBER 0.3 mcg/kg/min 15.728 mL/hr Rate/Dose Change 12/30/2021 2:25 PM ROCK CLIMBING TEAM MEMBER 0.25 mcg/kg/min 13.106 mL/h r phenylephrine injection Given 12/30/2021 2:31 PM ROCK CLIMBING TEAM MEMBER 100 mcg intravenous, As needed, Starting on Tue12/30/21 at 1346, Anesthesia Intra-op Given 12/30/2021 2:12 PM ROCK CLIMBING TEAM MEMBER 100 mcg Given 12/30/2021 2:10 PM ROCK CLIMBING TEAM MEMBER 100 mcg propofol 10 mg/mL infusion New Bag 12/30/2021 1:15 50 mcg/kg/min 2 0.97 mL/hr (DIPRIVAN) PM ROCK CLIMBING TEAM MEMBER intravenous, Continuous Infusion: Per Instructions PRN, Starting on Tue12/30/21 at 1315, Anesthesia Intra-op New Bag 12/30/2021 1:09 PM ROCK CLIMBING TEAM MEMBER 50 mcg/kg/min 20.97 mL/hr propofoL injection (DIPRIVAN) Given 12/30/2021 12:59 PM ROCK CLIMBING TEAM MEMBER 140 mg intravenous, As needed, Starting on Tue12/30/21 at 1259, Anesthesia Intra-op rocuronium injection (ZEMURON) Given 12/30/2021 1:12 PM ROCK CLIMBING TEAM MEMBER 10 mg intravenous, As needed, Starting on Tue12/30/21 at 1301, Anesthesia Intra-op Given 12/30/2021 1:01 PM ROCK CLIMBING TEAM MEMBER 50 mg sugammadex injection (BRIDION) Given 12/30/2021 3:14 PM ROCK CLIMBING TEAM MEMBER 139.8 mg intravenous, As needed, Starting on [...] documented as of this encounter Care Teams Setup Technician Relationship Specialty Start Date End Date Elsewhere, Pcp PCP - General Family Medicine 12/25/21 documented as of this encounter
--- OUTSIDE RECORDS SUMMARY | 2022-09-09 07:59 | XMS_ITS | Encounter Summary ---
:1965 Author Organization [facility] Address [address] [place] [address] Care Team Providers Name Role Phone Unavailable Primary Care Provider Unavailable Encounter Details Date Type Department Care Team Description 11/25/2021 Clinical Communication Department of Guillermo Patterson, Neurologic Surgery in [place], [place] [address] [place] [address] [address] [place] [phone] Social History Tobacco Use Types Packs/Day Years [...] you attend islam or Patient refused 2021 yazidism services? Do [...] be seen through ED, or local provider/neurology. 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
--- OUTSIDE RECORDS SUMMARY | 2022-09-09 07:59 | XMS_ITS | Encounter Summary ---
:1965 Author Organization [facility] Address [address] [place] [address] Care Team Providers Name Role Phone Unavailable Primary Care Provider Unavailable Reason for Referral MRI/CAT/PET Scan (Routine) - Authorized Specialty Diagnoses / Procedures Referred By Contact Refer red To Contact Radiology Diagnoses Stroke Cerebrovascular Accident Personal History Occlusion Vertebral Artery With lnfarction (HCC) Robert Diehl M.D. [facility] Procedures MR Neck Angiogram without and with IV Contrast [address] [place] [address] Referral ID Status Reason Start Date Expiration Date Visits V isits Requested Authorized [id number] Authorized 12/10/2021 12/10/2022 1 1 PEN SET ASSEMBLER Outpatient (Routine) - Authorized Specialty Diagnoses / Procedures Referred By Contact Refer red To Contact Diagnoses Aneurysm Cerebral Unruptured (HCC) Robert Diehl M.D. [facility] Procedures PM Device interrogation (clinic) [address] [place] [address] Referral ID Status Reason Start Date Expiration Date Visits V isits Requested Authorized [id number] Authorized 12/10/2021 12/10/2022 1 1 PEN SET ASSEMBLER MRI/CAT/PET Scan (Routine) - Authorized Specialty Diagnoses / Procedures Referred By Contact Refer red To Contact Radiology Diagnoses Aneurysm Cerebral Unruptured (HCC) Robert Diehl M.D. [facility] Procedures MR Brain Angiogram without IV Contrast [address] [place] [address] Referral ID Status Reason Start Date Expiration Date Visits V isits Requested Authorized [id number] Authorized 12/10/2021 12/10/2022 1 1 PEN SET ASSEMBLER Reason for Visit Reason Comments Michel Encounter Details Date Type Department Care Team Description 12/10/2021 Clinical Communication Department of Robert Diehl [facility] in [place], [place] [address] [facility] [address] [place] [phone] [phone] Social History Tobacco Use Types Packs/Day Years [...] 2:58 PM CST Signed and thank you. PEN SET ASSEMBLER documented in this encounter Plan of Treatment Scheduled Orders Name Type Priority Associated Diagnoses Order S chedule MR Brain Angiogram Imaging RAD - Routine Aneurysm Cerebral Exp ected: without IV Contrast (most inpatients Unruptured ([facility]) 05/03/2022, and all Expires: outpatients) 03/10/2023 PM Device Procedures Routine Aneurysm Cerebral Expected: interrogation Unruptured ([facility]) 12/29/2021 , (clinic) Expires: 03/10/2023 MR Neck Angiogram Imaging RAD - Routine Stroke Cerebrovascular Expected: without and with IV (most inpatients Accident Personal 05/03/2022 Contrast and all History (Approximate), outpatients) Occlusion Vertebral Expires: Artery With lnfarction 03/10 ([facility]) documented as of this encounter Visit Diagnoses Diagnosis Stroke Cerebrovascular Accident Personal History - Primary Aneurysm Cerebral Unruptured ([facility]) Occlusion Vertebral Artery With lnfarcti on ([facility]) documented in this encounter Additional Health Concerns Assessment Noted Time PHQ-9 Depression Total Score: 16 02/11/2021 12:00 AM C DT documented as of this encounter
--- OUTSIDE RECORDS SUMMARY | 2022-09-09 07:59 | XMS_ITS | Encounter Summary ---
:1965 Author Organization [facility] Address [address] [place] [address] Care Team Providers Name Role Phone Unavailable Primary Care Provider Unavailable Reason for Referral MRI/CAT/PET Scan (Routine) - Closed Specialty Diagnoses / Procedures Referred By Contact Refer red To Contact Radiology Diagnoses Painful Total Joint Arthroplasty Initial ([facility]) Alfredo Herrera [facility] Procedures CT Shoulder Left without IV Contrast O.P.A.-C. [address] [place] [phone] Referral ID Status Reason Start Date Expiration Date Visits Requ ested Visits Authorized [id number] Closed 09/07/2021 09/07/2022 1 1 Reason for Visit MRI/CAT/PET Scan (Routine) - Closed Specialty Diagnoses / Procedures Referred By Contact Refer red To Contact Radiology Diagnoses Painful Total Joint Arthroplasty Initial ([facility]) Alfredo Herrera [facility] Procedures CT Shoulder Left without IV Contrast O.P.A.-C. [address] [place] [phone] Referral ID Status Reason Start Date Expiration Date Visits Requ ested Visits Authorized [id number] Closed 09/07/2021 09/07/2022 1 1 Encounter Details Date Type Department Care Team Description 09/25/2021 Hospital Encounter Department of Alfredo Herrera Painful Total Joint Radiology, Emily HillAOmar Arthroplasty Initial Building, in [address] [place] [address] ([facility]) [facility] [address] [facility] [phone] [place], [place] (Work) [address] [phone] Social History Tobacco Use Types Packs/Day Years [...] you attend caodaism or Patient refused 2021 sabianism services? Do [...]
--- OUTSIDE RECORDS SUMMARY | 2022-09-09 07:59 | XMS_ITS | Encounter Summary ---
:1965 Author Organization [facility] Address [address] [place] [address] Care Team Providers Name Role Phone Unavailable Primary Care Provider Unavailable Encounter Details Date Type Department Care Team Description 09/23/2021 Hospital Encounter Department of Alfredo Herrera Total Joint Laboratory Medicine A, O.PEmilioCBritton Arthroplasty Initial and Pathology, [address] [place] [address] ([facility]) [facility] in [facility] [address] [place] [phone] 200 [facility] (Work) [place], [place] [phone] (Fax) [phone] Social History Tobacco Use Types Packs/Day Years [...] you attend hinduism or Patient refused 2021 jainism services? Do [...] (ABNORMAL) Sedimentation Rate (09/23/2021 9:07 AM CDT) [facility] Method Time Signature Sedimentation 31 (H) 2 - 22 09/23/2021 DTL Rate, B mm/h 10:46 AM CDT Specimen Anatomical Collection Method Collection Time Receive d Time (Source) Location / / Volume Laterality Blood (Blood, 09/23/2021 9:07 AM 09/23/20 9:30 Venous) CDT AM CDT Alfredo Kamara LAB BLOOD ADD-ON Performing Organization Address City/[facility] Code Phon e Number [facility] - 200 [place], [place] [address] [place] [address] [place] [address] CRP (C-Reactive Protein) (09/23/2021 9:07 AM CDT) P athologist Signature C-Reactive <3.0 <=8.0 mg/L 09/23/2021 DTL Protein (CRP), 10:30 AM CDT S Specimen Anatomical Collection Method Collection Time Receive d Time (Source) Location / / Volume Laterality Blood (Blood, 09/23/2021 9:07 AM 09/23/20 9:57 Venous) CDT AM CDT Alfredo Kamara LAB BLOOD ADD-ON Performing Organization Address City/[facility] Code Phon e Number [facility] - [address] [place], [place] [address] [facility] [address] Laboratories-[address] (ABNORMAL) CBC with Differential, Blood (09/23/2021 9:07 AM CDT) [facility] Method Time Signature Hemoglobin 10.1 (L) [...] [facility] [address] [place], [place] [address] [facility] [place] [address] Laboratories-[facility] [address] documented in this encounter Visit Diagnoses Diagnosis Painful Total Joint Arthroplasty Initial (HCC) documented in this encounter Additional Health Concerns Assessment Noted Time PHQ-9 Depression Total Score: 16 02/11/2021 12:00 AM C DT documented as of this encounter
--- OUTSIDE RECORDS SUMMARY | 2022-09-09 07:59 | XMS_ITS | Encounter Summary ---
:1965 Author Organization [facility] Address [address] [place] [address] Care Team Providers Name Role Phone Unavailable Primary Care Provider Unavailable Encounter Details Date Type Department Care Team Description 10/13/2021 Clinical Communication Preoperative [facility] in [place], [place] [address] [facility] [address] [place] [phone] Social History Tobacco Use Types Packs/Day Years [...] Umu Gan [facility] - 10/13/2021 11:09 AM MOLD CAPPER Surgical Risk Score: 3 Risk Identifiers: 4+ ??? TIA ??? PFO ??? Hx of Arterial Thrombosis ??? Asthma CAPPER documented in this encounter Plan of Treatment Not on filedocumented as of this encounter Visit Diagnoses Not on filedocumented in this encounter Additional Health Concerns Assessment Noted Time PHQ-9 Depression Total Score: 16 02/11/2021 12:00 AM C DT documented as of this encounter
--- OUTSIDE RECORDS SUMMARY | 2022-09-09 07:59 | XMS_ITS | Encounter Summary ---
:1965 Author Organization [facility] Address [address] [place] [address] Care Team Providers Name Role Phone Unavailable Primary Care Provider Unavailable Reason for Visit Reason Comments Michel Encounter Details Date Type Department Care Team Description 11/25/2021 Clinical Communication Department of Chani Benjamin Neurologic Surgery in [place], [place], [place] Ph.D. [address] [facility] 200 [place] [phone] Social History Tobacco Use Types Packs/Day Years [...] you attend restorationism or Patient refused 2021 rastafarian services? Do [...] this encounter Miscellaneous Notes Telephone Encounter - Boirs Becerra - 11/25/2021 12:31 PM CST Who [...] for your help. [facility] Neurosurgery Appointment Office [phone] Please respond to the RST YEYO SCHEDULING Pool Thank You TELEPHONE TRIAGE documented in this encounter Plan of Treatment Not on filedocumented as of this encounter Visit Diagnoses Not on filedocumented in this encounter Additional Health Concerns Assessment Noted Time PHQ-9 Depression Total Score: 16 02/11/2021 12:00 AM C DT documented as of this encounter
--- OUTSIDE RECORDS SUMMARY | 2022-09-09 07:59 | XMS_ITS | Encounter Summary ---
:1965 Author Organization [facility] Address [address] [place] [address] Care Team Providers Name Role Phone Unavailable Primary Care Provider Unavailable Reason for Referral Outpatient (Routine) - Closed Specialty Diagnoses / Procedures Referred By Contact Refer red To Contact Anesthesiology Diagnoses Preoperative Exam Painful Total Joint Arthroplasty Initial (HCC) Alfredo Herrera [facility] Akbar-Araceli [address] [place] [phone] Referral ID Status Reason Start Date Expiration Date Visits Requ ested Visits Authorized [id number] Closed 10/13/2021 10/13/2022 1 1 CARE TECHNICIAN Outpatient (Routine) - Closed Specialty Diagnoses / Procedures Referred By Contact Refer red To Contact Orthopedic Surgery Diagnoses Preoperative Exam Painful Total Joint Arthroplasty Initial ([facility]) Alfredo Herrera [facility] Lebron.Fernando-CBritton 200 [place] [address] Referral ID Status Reason Start Date Expiration Date Visits Requ ested Visits Authorized [id number] Closed 10/13/2021 10/13/2022 1 1 CARE TECHNICIAN Reason for Visit Reason Comments pre op orders L verena Encounter Details Date Type Department Care Team Description 10/12/2021 Clinical Communication Department of Jam pre op orders ([facility] Lilian Alex) in [place] [address] [address] [place], [place] 200 [facility] [address] [place], [place] [phone] (Work) [phone] Social History Tobacco Use Types Packs/Day Years [...] you attend islam or Patient refused 2021 sabianism services? Do [...] and see me Surgery date: December 30 CARE TECHNICIAN documented in this encounter Plan of Treatment Scheduled Referrals Name Type Priority Associated Diagnoses Order S [facility] Orthopedic Surgery Outpatient Referral Routine Preoperat lalo Exam Expected: Pre Op (clinic) Painful Total Joint 12/29 Arthroplasty Initial (Approx imate), (HCC) Expires: 10/12/2024 Preoperative Outpatient Referral Routine Preoperative Exam Expected: Evaluation NESHA Painful Total Joint 2021 consult (clinic) Arthroplasty Initial (Ap proximate), (HCC) Expires: 10/12/2024 documented as of this encounter Results (ABNORMAL) Basic Metabolic Panel (12/29/2021 11:34 AM SKIN CARE TECHNICIAN) P athologist Signature Potassium, S 4.7 3.6 - 5.2 12/29/2021 DTL mmol/L 12:38 PM SKIN CARE TECHNICIAN Sodium, S 143 135 - 145 12/29/2021 DTL mmol/L 12:38 PM SKIN CARE TECHNICIAN Chloride, S 108 (H) 98 - 107 12/29/2021 DTL mmol/L 12:38 PM SKIN CARE TECHNICIAN Bicarbonate, S 24 22 - 29 12/29/2021 DTL mmol/L 12:38 PM SKIN CARE TECHNICIAN Anion Gap 11 7 - 15 12/29/2021 DTL 12:38 PM SKIN CARE TECHNICIAN BUN (Blood Urea 15 6 - 21 12/29/2021 DTL Nitrogen), S mg/dL 12:38 PM SKIN CARE TECHNICIAN Creatinine 0.83 0.59 - 12/29/2021 DTL 1.04 mg/dL 12:38 PM SKIN CARE TECHNICIAN eGFR-Non 78 >=60 12/29/2021 DTL Black/ mL/min/BSA 12:38 PM SKIN CARE TECHNICIAN Nauruan Comment: ----ADDITIONAL INFORMATION---- Estimated GFR calculated using the 2009 CKD_EPI creatinine equation. eGFR-Black/ 90 >=60 mL/min/BSA 2021 12:38 PM SKIN CARE TECHNICIAN DTL Comment: ----ADDITIONAL INFORMATION---- Estimated GFR calculated using the 2009 CKD_EPI creatinine equation. Calcium, Total, S 9.1 8.6 - 10.0 mg/dL 12/29/2021 12:3 8 PM SKIN CARE TECHNICIAN DTL Glucose, S 90 70 - 140 mg/dL 12/29/2021 12:38 PM SKIN CARE TECHNICIAN DTL Specimen Anatomical Collection Method Collection Time Receive d Time (Source) Location / / Volume Laterality Blood (Blood, 12/29/2021 11:34 12/29/2021 Venous) AM SKIN CARE TECHNICIAN 12:13 PM SKIN CARE TECHNICIAN Alfredo Kamara LAB BLOOD ADD-ON Performing Organization Address City/[facility] Phon e Number [facility] - [address] [place] [address] Laboratories-[address] Type and Screen (with reflex Antibody ID) (12/29/2021 11:34 AM SKIN CARE TECHNICIAN) [facility] [employer] Method Time Signature ABORh A Neg Not applicable 12/29/2021 ETRM 12:59 PM SKIN CARE TECHNICIAN Antibody CANCELED 12/29/2021 ETRM Screen 12:59 PM SKIN CARE TECHNICIAN Comment: Result canceled by the ancerick y. Type & Screen Expiration 02/26/2022 23:59 12/29/19 22 12:59 PM SKIN CARE TECHNICIAN ETRM Testing Location [place] DEFAULT 12/29/2021 11:58 AM SKIN CARE TECHNICIAN ETRM Specimen Anatomical Collection Method Collection Time Receive d Time (Source) Location / / Volume Laterality Blood (Blood, 12/29/2021 11:34 12/29/2021 Venous) AM SKIN CARE TECHNICIAN 11:58 AM SKIN CARE TECHNICIAN Alfredo SchmidtCBritton LAB BLOOD BANK TEST ORDERABL ES Performing Organization Address City/[facility] Phon e Number [facility] - [address] ETRM [address] (ABNORMAL) CBC with Differential, Blood (12/29/2021 11:34 AM SKIN CARE TECHNICIAN) [facility] [employer] Method Time Signature Hemoglobin 11.2 (L) 11.6 - 12/29/2021 DTL 15.0 g/dL 12:02 PM SKIN CARE TECHNICIAN Hematocrit 34.1 (L) 35.5 - 12/29/2021 DTL 44.9 % 12:02 PM SKIN CARE TECHNICIAN Erythrocytes 4.04 3.92 - 12/29/2021 DTL 5.13 12:02 PM SKIN CARE TECHNICIAN x10(12)/L MCV 84.4 78.2 - 12/29/2021 DTL 97.9 fL 12:02 PM SKIN CARE TECHNICIAN RBC Distrib Width 20.2 (H) 12.2 - 12/29/2021 DTL 16.1 % 12:02 PM SKIN CARE TECHNICIAN Platelet Count 324 157 - 371 12/29/2021 DTL x10(9)/L 12:02 PM SKIN CARE TECHNICIAN Leukocytes 5.1 3.4 - 9.6 12/29/2021 DTL x10(9)/L 12:02 PM SKIN CARE TECHNICIAN Neutrophils 3.08 1.56 - 12/29/2021 DTL 6.45 12:02 PM SKIN CARE TECHNICIAN x10(9)/L Lymphocytes 1.39 0.95 - 12/29/2021 DTL 3.07 12:02 PM SKIN CARE TECHNICIAN x10(9)/L Monocytes 0.43 0.26 - 12/29/2021 DTL 0.81 12:02 PM SKIN CARE TECHNICIAN x10(9)/L Eosinophils 0.17 0.03 - 12/29/2021 DTL 0.48 12:02 PM SKIN CARE TECHNICIAN x10(9)/L Basophils 0.05 0.01 - 12/29/2021 DTL 0.08 12:02 PM SKIN CARE TECHNICIAN x10(9)/L Specimen Anatomical Collection Method Collection Time Receive d Time (Source) Location / / Volume Laterality Blood (Blood, 12/29/2021 11:34 12/29/2021 Venous) AM SKIN CARE TECHNICIAN 11:54 AM SKIN CARE TECHNICIAN Alfredo Kamara LAB BLOOD ADD-ON Performing Organization Address City/State/ZIP Code Phon e Number [facility] - [address] [place], [place] [address] [facility] [place] [address] Laboratories-[facility] [address] SARS Coronavirus 2, Molecular Detection, PCR, Varies Asymptomatic (12/29/2021 11:11 AM SKIN CARE TECHNICIAN) [facility] Method Time Signature COVID-19, Swab, 12/29/2021 DTL PCR, Source Nasopharynx 4:19 PM SKIN CARE TECHNICIAN COVID-19, Undetected Undetected 12/29/2021 DTL PCR, Result 4:19 PM SKIN CARE TECHNICIAN Comment: SARS-CoV-2 RNA absent. This result does not rule out COVID-19 in the patient, as the sensitivity of the test depends o n the timing of the specimen collection and quality of the specimen. Result should be correlated with patient's history and clinical presentat ion. ----ADDITIONAL INFORMATION---- This RT-PCR test using the Fleksy SARS-Co V-2 Assay ( [employer] performed on the Fleksy Two Module System has received Emergency Use Authorization (EUA) by the U.S. Food and Drug Administration, and is modified from the neurourologist's instructions with a bridging study. Performance characteristics were verifie d by [facility] in a manner consistent with CLIA requirements. Visit the CDC website: https://www.cdc.g ov/coronavirus/ for the most recent guidelines on [facility] virus testing. Fact Sheet for Healthcare Providers: https://www.fda.gov/media/514148/downloa d Fact Sheet for Patients: https://www.fda.gov/media/586768/downloa d Specimen Anatomical Collection Method Collection Time Receive d Time (Source) Location / / Volume Laterality Varies 12/29/2021 11:11 12/29/2021 (Nasopharynx) AM SKIN CARE TECHNICIAN 12:03 PM SKIN CARE TECHNICIAN Alfredo Kamara LAB MICROBIOLOGY - GENERAL O RDERABLES Performing Organization Address City/State/ZIP Code Phon e Number [facility] - 200 [place], [place] [address] [facility] [place] [address] Laboratories-[facility] [address] DX Shoulder Left 2+ Views (12/29/2021 10:30 AM SKIN CARE TECHNICIAN) Anatomical Region Laterality Modality Upper Extremity, Shoulder, Musculoskeletal RST LOS, Left Digital Radiography Musculoskeletal ARZ LOS, Muskuloskeletal FLA LOS Specimen (Source) Anatomical Collection Method Collection Time Re ceived Time Location / / Volume Laterality 12/29/2021 10:53 AM SKIN CARE TECHNICIAN Impressions 12/29/2021 10:57 AM SKIN CARE TECHNICIAN Demineralization. Left shoulder arthroplasty revision to a reverse TSA. Developing lucency about the glenoi d component screws when compared back to 11/13/20, compatible with loosening. Pre sumed distal clavicle resection. Incompletely imaged instrumented spinal fusion from the upper cervical spine to the upper thoracic spine. Spinal cord st imulator. At least one old healed left posterior rib fracture. Narrative 12/29/2021 10:57 AM SKIN CARE TECHNICIAN EXAM: ??DX SHOULDER LEFT 2+ VIEWS Procedure [...]
--- OUTSIDE RECORDS SUMMARY | 2022-09-09 07:59 | XMS_ITS | Encounter Summary ---
:1965 Author Organization [facility] Address [address] [place] [address] Care Team Providers Name Role Phone Elsewhere, Pcp Primary Care Provider Unavailable Encounter Details Date Type Department Care Team Description 12/29/2021 Hospital Encounter Department of Alfredo Herrera ative Exam; Laboratory Medicine A, O.P.A.-C. Painful Total Joint Arthroplasty Initial (HCC) and Pathology, [address] [place] [address], in [place] [phone] [place] [phone] [place] [address] (Work) [place], [place] [phone] [address] (Fax) [phone] Social History Tobacco Use Types Packs/Day Years [...] you attend mormonism or Patient refused 2021 sabianist services? Do [...] THC multivit-min/iron/folic/ Take 1 tablet by 0 [id number] (HAIR, SKIN AND mouth daily. NAILS ADVANCED [...] 12/29/2021 11:34 Results for this RBC AM HOSEMAN procedure are i n the results section. CBC WITH Routine 12/29/2021 11:34 Preoperative Ex am Results for this DIFFERENTIAL, B AM HOSEMAN Painful Total Joint proce dure are in Arthroplasty Initial the res ults ([facility]) section. TYPE AND SCREEN Routine 12/29/2021 11:34 Preoperative Ex am Results for this AM HOSEMAN Painful Total Joint procedur e are in Arthroplasty Initial the res ults ([facility]) section. BASIC METABOLIC Routine 12/29/2021 11:34 Preoperative Ex am Results for this PANEL, S/P AM HOSEMAN Painful Total Joint procedur e are in Arthroplasty Initial the res ults ([facility]) section. documented in this encounter Results Antibody Screen, RBC (12/29/2021 11:34 AM HOSEMAN) athologist Signature Antibody Negative Negative 12/29/2021 DTL Screen 12:59 PM HOSEMAN Specimen Anatomical Collection Method Collection Time Receive d Time (Source) Location / / Volume Laterality Blood 12/29/2021 11:34 12/29/2021 AM HOSEMAN 11:58 AM HOSEMAN Alfredo Kamara LAB BLOOD BANK TEST ORDERABL ES Performing Organization Address City/State/ZIP Code Phon e Number [facility] - [address] [place], [place] [address] [facility] [place] [address] Laboratories-[facility] [address] (ABNORMAL) Basic Metabolic Panel (12/29/2021 11:34 AM HOSEMAN) athologist [facility] Potassium, S 4.7 3.6 - 5.2 12/29/2021 DTL mmol/L 12:38 PM HOSEMAN Sodium, S 143 135 - 145 12/29/2021 DTL mmol/L 12:38 PM HOSEMAN Chloride, S 108 (H) 98 - 107 12/29/2021 DTL mmol/L 12:38 PM HOSEMAN Bicarbonate, S 24 22 - 29 12/29/2021 DTL mmol/L 12:38 PM HOSEMAN Anion Gap 11 7 - 15 12/29/2021 DTL 12:38 PM HOSEMAN BUN (Blood Urea 15 6 - 21 12/29/2021 DTL Nitrogen), S mg/dL 12:38 PM HOSEMAN Creatinine 0.83 0.59 - 12/29/2021 DTL 1.04 mg/dL 12:38 PM HOSEMAN eGFR-Non 78 >=60 12/29/2021 DTL Black/ mL/min/BSA 12:38 PM HOSEMAN Chilean Comment: ----ADDITIONAL INFORMATION---- Estimated GFR calculated using the 2009 CKD_EPI creatinine equation. eGFR-Black/ 90 >=60 mL/min/BSA 2021 12:38 PM HOSEMAN DTL Comment: ----ADDITIONAL INFORMATION---- Estimated GFR calculated using the 2009 CKD_EPI creatinine equation. Calcium, Total, S 9.1 8.6 - 10.0 mg/dL 12/29/2021 12:3 8 PM HOSEMAN DTL Glucose, S 90 70 - 140 mg/dL 12/29/2021 12:38 PM HOSEMAN DTL Specimen Anatomical Collection Method Collection Time Receive d Time (Source) Location / / Volume Laterality Blood (Blood, 12/29/2021 11:34 12/29/2021 Venous) AM HOSEMAN 12:13 PM HOSEMAN Alfredo Kamara LAB BLOOD ADD-ON Performing Organization Address City/State/ZIP [facility] Phon e Number [facility] - 200 [place], [place] [address] [facility] [place] [address] Laboratories-[facility] 200 [facility] Type and Screen (with reflex Antibody ID) (12/29/2021 11:34 AM HOSEMAN) [facility] Method Time Signature ABORh A Neg Not applicable 12/29/2021 ETRM 12:59 PM HOSEMAN Antibody CANCELED 12/29/2021 ETRM Screen 12:59 PM HOSEMAN Comment: Result canceled by the ancillar y. Type & Screen Expiration 02/26/2022 23:59 12/29/19 22 12:59 PM HOSEMAN ETRM Testing Location [place] DEFAULT 12/29/2021 11:58 AM HOSEMAN ETRM Specimen Anatomical Collection Method Collection Time Receive d Time (Source) Location / / Volume Laterality Blood (Blood, 12/29/2021 11:34 12/29/2021 Venous) AM HOSEMAN 11:58 AM HOSEMAN Alfredo Kamara LAB BLOOD BANK TEST ORDERABL ES Performing Organization Address City/[facility] Phon e Number [facility] - [address] [place] [address] [facility] [place] [address] Laboratories-[facility] 200 [facility] (ABNORMAL) CBC with Differential, Blood (12/29/2021 11:34 AM HOSEMAN) [facility] Method Time Signature Hemoglobin 11.2 (L) 11.6 - 12/29/2021 DTL 15.0 g/dL 12:02 PM HOSEMAN Hematocrit 34.1 (L) 35.5 - 12/29/2021 DTL 44.9 % 12:02 PM HOSEMAN Erythrocytes 4.04 3.92 - 12/29/2021 DTL 5.13 12:02 PM HOSEMAN x10(12)/L MCV 84.4 78.2 - 12/29/2021 DTL 97.9 fL 12:02 PM HOSEMAN RBC Distrib Width 20.2 (H) 12.2 - 12/29/2021 DTL 16.1 % 12:02 PM HOSEMAN Platelet Count 324 157 - 371 12/29/2021 DTL x10(9)/L 12:02 PM HOSEMAN Leukocytes 5.1 3.4 - 9.6 12/29/2021 DTL x10(9)/L 12:02 PM HOSEMAN Neutrophils 3.08 1.56 - 12/29/2021 DTL 6.45 12:02 PM HOSEMAN x10(9)/L Lymphocytes 1.39 0.95 - 12/29/2021 DTL 3.07 12:02 PM HOSEMAN x10(9)/L Monocytes 0.43 0.26 - 12/29/2021 DTL 0.81 12:02 PM HOSEMAN x10(9)/L Eosinophils 0.17 0.03 - 12/29/2021 DTL 0.48 12:02 PM HOSEMAN x10(9)/L Basophils 0.05 0.01 - 12/29/2021 DTL 0.08 12:02 PM HOSEMAN x10(9)/L Specimen Anatomical Collection Method Collection Time Receive d Time (Source) Location / / Volume Laterality Blood (Blood, 12/29/2021 11:34 12/29/2021 Venous) AM HOSEMAN 11:54 AM HOSEMAN Alfredo Kamara LAB BLOOD ADD-ON Performing Organization Address City/State/ZIP Code Phon e Number [facility] - [facility] [address] [place], [place] [address] [facility] [place] [address] Laboratories-[facility] [address] documented in this encounter Visit Diagnoses Diagnosis Preoperative Exam Painful Total Joint Arthroplasty Initial (HCC) documented in this encounter Additional Health Concerns Assessment Noted Time PHQ-9 Depression Total Score: 16 02/11/2021 12:00 AM C DT documented as of this encounter Care Teams Highway Maintainer Relationship Specialty Start Date End Date Elsewhere, Pcp PCP - General Family Medicine 12/25/21 documented as of this encounter
--- OUTSIDE RECORDS SUMMARY | 2022-09-09 07:59 | XMS_ITS | Encounter Summary ---
:1965 Author Organization [facility] Address [address] [place] [address] Care Team Providers Name Role Phone Elsewhere, Pcp Primary Care Provider Unavailable Reason for Visit Reason Comments Pre-op Exam Outpatient (Routine) - Closed Specialty Diagnoses / Procedures Referred By Contact Refer red To Contact Orthopedic Surgery Diagnoses Preoperative Exam Painful Total Joint Arthroplasty Initial (HCC) Alfredo Herrera [facility]itton [address] [place] [phone] Referral ID Status Reason Start Date Expiration Date Visits Requ ested Visits Authorized [id number] Closed 10/13/2021 10/13/2022 1 1 Encounter Details Date Type Department Care Team Description 12/29/2021 Office Visit Department of Cyrus Polk Shoulde r Left (Primary Dx); Orthopedic Surgery in [place] Preoperative Exam; [place], [place] [address] [place] [address] Painful Total Joint Arthroplasty Initial ([facility]) [address] [place] [phone] Social History Tobacco Use Types Packs/Day Years [...] may involve the use of a medical editor made by a company [employer] I or one of my partners have collaborated to design, develop, or improve orthopedic implants, instruments, or products. Both the [facility] and the individual surgeons involved receive royalty payments from the use of those specific devices at other institutions, but no royalties or any other payments are paid for the use of those devices with any [facility] patient. The clinical rationale for the use of those devices as well as the availability and applicability of alternative devices was reviewed. He understands that the final decision for the use of a specific medical editor often is made at the time of surgery. All of his questions were answered; he understands and agrees with my approach to device selection and wants to proceed. E BUILDER documented in this encounter Plan of Treatment Not on filedocumented as of this encounter Visit Diagnoses Diagnosis Pain Shoulder Left - Primary Preoperative Exam Painful Total Joint Arthroplasty Initial (HCC) documented in this encounter Additional Health Concerns Infection Onset Date Last Indicated Resolved Time COVID19 Pending 12/29/2021 12/29/2021 12/29/2021 4:20 PM FRAME BUILDER Assessment Noted Time PHQ-9 Depression Total Score: 16 02/11/2021 12:00 AM C DT documented as of this encounter Care Teams Document Controller Relationship Specialty Start Date End Date Elsewhere, Pcp PCP - General Family Medicine 12/25/21 documented as of this encounter
--- OUTSIDE RECORDS SUMMARY | 2022-09-09 07:59 | XMS_ITS | Encounter Summary ---
:1965 Author Organization [facility] Address [address] [place] [address] Care Team Providers Name Role Phone Unavailable Primary Care Provider Unavailable Reason for Visit Reason Comments Communication results Encounter Details Date Type Department Care Team Description 10/05/2021 Clinical Communication Department of Rossy Polk Orthopedic Surgery Cyrus Souza M.D. (results) in [address] 200 [facility] [phone] Social History Tobacco Use Types Packs/Day Years [...] you attend pentecostalism or Patient refused 2021 spiritism services? Do [...] Cyrus Polk M.D. CT CT Job ID: [id number] CACY DIRECTOR documented in this encounter Miscellaneous Notes Telephone Encounter - Sosa Laughlin - 10/05/2021 3:17 PM CST Please list patient for 12/30/21. Thank you CACY DIRECTOR Telephone Encounter - Cyrus Polk M.D. - 10/05/2021 11:37 AM CST Dx: left infected shoulder arthroplasty Procedure: left resection shoulder arthroplasty UE82, NESHA, and see me Surgery date: December 30 Thank you CACY DIRECTOR Telephone Encounter - Radha Suh - 10/05/2021 11:18 AM CST Ms. Mosquera calls for results of labs, CT and aspiration results ( She is disappointment no one has reached out to her and that she had to call for these) Please call her with results to date CACY DIRECTOR documented in this encounter Plan of Treatment Not on filedocumented as of this encounter Visit Diagnoses Not on filedocumented in this encounter Additional Health Concerns Assessment Noted Time PHQ-9 Depression Total Score: 16 02/11/2021 12:00 AM C DT documented as of this encounter
--- OUTSIDE RECORDS SUMMARY | 2022-09-09 07:59 | XMS_ITS | Encounter Summary ---
:1965 Author Organization [facility] Address [address] [place] [address] Care Team Providers Name Role Phone Elsewhere, Pcp Primary Care Provider Unavailable Reason for Visit Outpatient (Routine) - Closed Specialty Diagnoses / Procedures Referred By Contact Refer red To Contact Anesthesiology Diagnoses Preoperative Exam Painful Total Joint Arthroplasty Initial (HCC) Alfredo Herrera [facility] O.P.A.-CBritton [address] [place] [phone] Referral ID Status Reason Start Date Expiration Date Visits Requ ested Visits Authorized [id number] Closed 10/13/2021 10/13/2022 1 1 Encounter Details Date Type Department Care Team Description 12/29/2021 Comprehensive Visit Preoperative Cayetano Herrera, O.P.A.-CBritton [address] [place] [address] [phone] Preanesthetic Medical Exam (Primary Dx); Evaluation Center Etta Lyle M.D. 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 Do [...] Comments Blood Pressure 125/78 12/29/2021 1:21 PM STORES ASSISTANT Pulse 64 12/29/2021 1:21 PM STORES ASSISTANT Temperature 36.1 ??C (97 ??F) 12/29/2021 1:01 PM STORES ASSISTANT Respiratory Rate - - Oxygen Saturation 97% 12/29/2021 1:21 PM STORES ASSISTANT Inhaled Oxygen Concentration - - Weight 72.6 kg (160 lb 0.9 oz) 12/29/2021 1:01 PM STORES ASSISTANT Height 152 cm (4' 11.84) 12/29/2021 1:01 PM STORES ASSISTANT Body Mass Index 31.42 12/29/2021 1:01 PM STORES ASSISTANT documented in this encounter H&P Notes Etta [...] RCRI score: 1; 6% risk of , [place], or cardiac arrest OBJECTIVE OBJECTIVE PHYSICAL EXAMINATION [...] Due To Embolism Right Vertebral Artery ([facility]) # Aneurysm Cerebral Unruptured ([facility]) # Dissection Vertebral Artery ([facility]) # 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 Written and verbal instructions given on medication [...] PGY-3, Anesthesiology and Perioperative Medicine [facility] ES ASSISTANT documented in this encounter Plan of [...] COVID19 Pending 12/29/2021 12/29/2021 12/29/2021 4:20 PM STORES ASSISTANT Assessment Noted Time PHQ-9 Depression Total Score: 16 02/11/2021 12:00 AM C DT documented as of this encounter Care Teams Seed Cutter Relationship Specialty Start Date End Date Elsewhere, Pcp PCP - General Family Medicine 12/25/21 documented as of this encounter
--- OUTSIDE RECORDS SUMMARY | 2022-09-09 07:59 | XMS_ITS | Encounter Summary ---
:1965 Author Organization [facility] Address [address] [place] [address] Care Team Providers Name Role Phone Unavailable Primary Care Provider Unavailable Reason for Visit Outpatient (Routine) - Closed Specialty Diagnoses / Procedures Referred By Contact Refer red To Contact Neurology Robert Diehl M. D[facility] [address] [place] [phone] Referral ID Status Reason Start Date Expiration Date Visits Requ ested Visits Authorized [id number] Closed 09/15/2020 09/15/2021 1 1 Encounter Details Date Type Department Care Team Description 11/18/2021 Virtual Visit Department of Robetr Diehl Stroke Cere brovascular Neurology jimmy Celaya M.D. Accident Personal [place], [place] [address] [place] [address] History (Primary Dx) [address] [place] [phone] Social History Tobacco Use Types Packs/Day Years [...] attend roman catholic or Patient refused 2021 jainism services? Do [...] 19 pandemic patient not seen in a [id number] manner. This is a 56-year-old woman with [...] antibiotics she has not been seen by [facility] Orthopedics Department who are planning a two [...] by: Robert Diehl M.D. 11/18/21 11:46 AM MONITORING ANALYST Diagnosis Plan 1. Stroke Cerebrovascular Accident Personal History TORING ANALYST documented in this encounter Plan of Treatment Not on filedocumented as of this encounter Visit Diagnoses Diagnosis Stroke Cerebrovascular Accident Personal History - Primary documented in this encounter Additional Health Concerns Assessment Noted Time PHQ-9 Depression Total Score: 16 02/11/2021 12:00 AM C DT documented as of this encounter
--- OUTSIDE RECORDS SUMMARY | 2022-09-09 07:59 | XMS_ITS | Encounter Summary ---
:[address] [facility] Address [address] [place] [address] Care Team Providers Name Role Phone Elsewhere, Pcp Primary Care Provider Unavailable Encounter Details Date Type Department Care Team Description 12/29/2021 Hospital Encounter Department of Alfredo Herrera ative Exam; Radiology, Clifton GonzalesPEmilioCBritton Painful Total Joint Arthroplasty Initial ([facility]) Building, in [address] [place] [phone] [place] [address] [place], [place] (Work) [phone] Social History Tobacco Use [...] you attend evangelical or Patient refused 2021 moravian services? Do [...] THC multivit-min/iron/folic/ Take 1 tablet by 0 ign745 (HAIR, SKIN AND mouth daily. NAILS ADVANCED [...] for this 2+ VIEWS (most inpatients AM EVALUATION ASSISTANT Painful Total Joint proc edure are in and all Arthroplasty the results outpatients) Initial (HCC) section. documented in this encounter Results DX Shoulder Left 2+ Views (12/29/2021 10:30 AM EVALUATION ASSISTANT) Anatomical Region Laterality Modality Upper Extremity, Shoulder, Musculoskeletal RST LOS, Left Digital Radiography Musculoskeletal ARZ LOS, Muskuloskeletal FLA LOS Specimen (Source) Anatomical Collection Method Collection Time Re ceived Time Location / / Volume Laterality 12/29/2021 10:53 AM EVALUATION ASSISTANT Impressions 12/29/2021 10:57 AM EVALUATION ASSISTANT Demineralization. Left shoulder arthroplasty revision to a reverse TSA. Developing lucency about the glenoi d component screws when compared back to 11/13/20, compatible with loosening. Pre sumed distal clavicle resection. Incompletely imaged instrumented spinal fusion from the upper cervical spine to the upper thoracic spine. Spinal cord st imulator. At least one old healed left posterior rib fracture. Narrative 12/29/2021 10:57 AM EVALUATION ASSISTANT EXAM: ??DX SHOULDER LEFT 2+ VIEWS Procedure [...] COVID19 Pending 12/29/2021 12/29/2021 12/29/2021 4:20 PM EVALUATION ASSISTANT Assessment Noted Time PHQ-9 Depression Total Score: 16 02/11/2021 12:00 AM C DT documented as of this encounter Care Teams Plumbing Instructor Relationship Specialty Start Date End Date Elsewhere, Pcp PCP - General Family Medicine 12/25/21 documented as of this encounter
--- OUTSIDE RECORDS SUMMARY | 2022-09-09 07:59 | XMS_ITS | Encounter Summary ---
:1965 Author Organization [facility] Address 200 [place] [address] Care Team Providers Name Role Phone Unavailable Primary Care Provider Unavailable Reason for Referral Outpatient (Routine) - Closed Specialty Diagnoses / Procedures Referred By Contact Refer red To Contact Diagnoses Painful Total Joint Arthroplasty Initial (HCC) Alfredo Herrera [place] Procedures US Major Joint Aspiration and or Injection Left O.P.A.-C. 200 [place] [phone] Referral ID Status Reason Start Date Expiration Date Visits Requ ested Visits Authorized [id number] Closed 09/07/2021 09/07/2022 1 1 Outpatient (Routine) - Closed Specialty Diagnoses / Procedures Referred By Contact Refer red To Contact Diagnoses Painful Total Joint Arthroplasty Initial (HCC) Alfredo Herrera [place] Procedures US Musculoskeletal Shoulder Left O.P.A.-C. 200 [place] [phone] Referral ID Status Reason Start Date Expiration Date Visits Requ ested Visits Authorized [id number] Closed 09/07/2021 09/07/2022 1 1 Reason for Visit Outpatient (Routine) - Closed Specialty Diagnoses / Procedures Referred By Contact Refer red To Contact Diagnoses Painful Total Joint Arthroplasty Initial (HCC) Alfredo Herrera [place] Procedures US Major Joint Aspiration and or Injection Left O.P.A.-C. [address] [place] [phone] Referral ID Status Reason Start Date Expiration Date Visits Requ ested Visits Authorized [id number] Closed 09/07/2021 09/07/2022 1 1 Encounter Details Date Type Department Care Team Description 09/25/2021 Hospital Encounter Department of Alfredo Herrera Total Joint Radiology, Lebron Gonzales.P.A.-CBritton Arthroplasty Initial Building, in [address] [place] [address] ([facility]) [facility] [phone] [place] [address] [place], [place] (Work) [phone] Social History Tobacco Use [...] you attend druze or Patient refused 2021 hoahaoism services? Do [...] Differential, Body Fluid (09/25/2021 1:48 PM CDT) [facility] Method Time Signature Fluid Type Left 09/25/2021 DHPM Shoulder 4:50 PM CDT Gross Slightly 09/25/2021 DHPM Appearance bloody 4:50 PM CDT Total 81849 /mcL 09/25/2021 DHPM Nucleated 4:50 PM CDT [...] seen. Reviewed by: Tech 09/25/2021 7:38 PM [facility] CDT Specimen Anatomical Collection Method Collection Time Receive d Time (Source) Location / / Volume Laterality Fluid 09/25/2021 1:48 PM 3:27 CDT PM CDT Alfredo Kamara LAB BODY FLUIDS AND STOOLS O PATERABLES Performing Organization Address City/[facility] Phon e Number [facility] - [address] [place], [place] [address] [facility] [place] [address] [facility] [address] [facility] Acid Fast Smear For Mycobacterium (09/25/2021 1:48 PM CDT) [facility] Method Time Signature Acid Fast Smear Negative. 09/26/2021 DTL For Mycobacterium 2:58 PM CDT Specimen Anatomical Collection Method Collection Time Receive d Time (Source) Location / / Volume Laterality Synovial Fluid, 09/25/2021 1:48 PM 2020 3:42 Left Shoulder CDT PM CDT Comment: Specimen Source Site: Fluid Narrative [facility] - [facility] - 09/26/2021 2:58 PM CDT Fungal and Mycobacteria specimens plated for culture, volume inadequate for optimal recovery. Alfredo Kamara LAB MICROBIOLOGY - GENERAL O PATERASARAH Performing Organization Address City/[facility] Code Phon e Number [facility] - [address] [place], [place] [address] [facility] [place] [address] Gram Stain (09/25/2021 1:48 PM CDT) [facility] Method Time Signature Gram Stain No [...] [facility] - [address] [place], [place] [address] [facility] [place] [address] Laboratories-[facility] [address] (ABNORMAL) Bacterial Culture, Aerobic + Susc (09/25/2021 1:48 PM CDT) Component Value Ref Test Analysis Performed At Patholo gist Range Method Time Signature Bacterial STAPHYLOCOCCUS EPIDERMIDIS 09/30/2021 DT L Culture, One Sarles 2:35 PM CDT Aerobic + (A) Susc Comment: Semi-Urgent Result. Semi-Urgent This is a semi-urgent result [facility] - (BENITEZ) [facility] S Specimen Anatomical Collection Method Collection Time Receive d Time (Source) Location / / Volume Laterality Fluid (Synovial 09/25/2021 1:48 PM 2020 3:42 Fluid, Left CDT PM CDT Shoulder) Comment: Specimen Source Site: Fluid Narrative [facility] - 09/30/2021 2:35 PM [...] - GENERAL O RDSONIA Performing Organization Address City/[facility] Phon e Number [facility] - 200 [place], [place] [address] [place], [place] [phone] [place] [address] Bacterial Culture, Anaerobic + Susc (09/25/2021 1:48 PM CDT) [facility] Method Time Signature Bacterial No growth 10/09/2021 DTL Culture, after 14 7:41 AM WINE STEWARD/STEWARDESS Anaerobic + days of Susc incubation. Specimen Anatomical Collection Method Collection Time Receive d Time (Source) Location / / Volume Laterality Fluid (Synovial 09/25/2021 1:48 PM 2020 3:42 Fluid, Left CDT PM CDT Shoulder) Comment: Specimen Source Site: Fluid Narrative [facility] - 10/09/2021 7:41 AM WINE STEWARD/STEWARDESS Fungal and Mycobacteria specimens plated for culture, volume inadequate for optimal recovery. Alfredo Kamara LAB MICROBIOLOGY - GENERAL O MARY Performing Organization Address [facility] Phon e Number [facility] - [address] (ABNORMAL) [facility] Bacteria PCR+Sequencing (09/25/2021 1:48 PM CDT) Component Value Ref Test Analysis Performed At [facility] Method Time Signature Broad Range This test was developed and its performance characteri stics 10/06/2021 DTL Bacteria determined by [facility] in a manner consistent with 1:24 PM WINE STEWARD/STEWARDESS PCR+Sequencin CLIA requirements. This test has not been cleared or g approved by the U.S. Food and Drug Administration. (A) Broad Range STAPHYLOCOCCUS EPIDERMIDIS 10/06/2021 DTL Bacteria DNA detected 1:24 PM WINE STEWARD/STEWARDESS PCR+Sequencin (A) g Comment: Semi-Urgent Result. Semi-Urgent This is a semi-urgent result [facility] Specimen Anatomical Collection Method Collection Time Receive d Time (Source) Location / / Volume Laterality Fluid (Synovial 09/25/2021 1:48 PM 2020 3:42 Fluid, Left CDT PM CDT Shoulder) Comment: Specimen Source Site: Fluid Narrative [facility] - 10/06/2021 1:24 PM WINE STEWARD/STEWARDESS Fungal and Mycobacteria specimens plated for culture, volume inadequate for optimal recovery. Alfredo Kamara LAB MICROBIOLOGY - GENERAL O RDBRADLEYBLES Performing Organization Address [facility] Phon e Number [facility] [address] [place] [address] [phone] Crystal Identification, Synovial Fluid (09/25/2021 1:48 PM CDT) Analysis Performed At [facility] Time Signature Crystal ID, None seen None seen 09/25/2021 [facility] Synovial Fl 4:56 PM CDT Reviewed by: Tech 09/25/2021 [facility] 4:56 PM CDT Specimen Anatomical Collection Method Collection Time Receive d Time (Source) Location / / Volume Laterality Fluid (Synovial 09/25/2021 1:48 PM 2020 3:27 Fluid, Left CDT PM CDT Shoulder) Alfredo Kamara LAB BODY FLUIDS AND STOOLS O RDERABLES Performing Organization Address City/[facility] Code Phon e Number [facility] - 200 [place], [place] [address] Fungal Culture, Routine (09/25/2021 1:48 PM CDT) [facility] Method Time Signature Fungal No growth 10/20/2021 [facility] Culture, after 24 1:01 AM WINE STEWARD/STEWARDESS Routine days of incubation. Specimen Anatomical Collection Method Collection Time Receive d Time (Source) Location / / Volume Laterality Fluid (Synovial 09/25/2021 1:48 PM 2020 3:42 Fluid, Left CDT PM CDT Shoulder) Comment: Specimen Source Site: Fluid Narrative [facility] - 10/20/2021 1:01 AM WINE STEWARD/STEWARDESS Fungal and Mycobacteria specimens plated for culture, volume inadequate for optimal recovery. Alfredo Foote. LAB MICROBIOLOGY - GENERAL O RDERABLES Performing Organization Address [facility] Phon e Number [facility] - [address] Mycobacterial Culture (09/25/2021 1:48 PM CDT) [facility] gist Method Time Signature Mycobacterial No growth 11/07/2021 DTL Culture after 42 1:03 AM WINE STEWARD/STEWARDESS days of incubation . Specimen Anatomical Collection Method Collection Time Receive d Time (Source) Location / / Volume Laterality Fluid (Synovial 09/25/2021 1:48 PM 2020 3:42 Fluid, Left CDT PM CDT Shoulder) Comment: Specimen Source Site: Fluid Narrative [facility] - 11/07/2021 1:03 AM WINE STEWARD/STEWARDESS Fungal and Mycobacteria specimens plated for culture, volume inadequate for optimal recovery. Alfredo Kamara LAB MICROBIOLOGY - GENERAL O MARY Performing Organization Address [facility] Phon e Number [facility] [phone] [place] [address] documented in this encounter Visit Diagnoses Diagnosis [...]
--- OUTSIDE RECORDS SUMMARY | 2022-09-09 07:59 | XMS_ITS | Encounter Summary ---
:1965 Author Organization [facility] Address [address] [place] [address] Care Team Providers Name Role Phone Elsewhere, Pcp Primary Care Provider Unavailable Reason for Referral Outpatient (Routine) - Closed Specialty Diagnoses / Procedures Referred By Contact Refer red To Contact Orthopedic Surgery Diagnoses Pain Shoulder Left Alfredo Herrera, [facility] Anh [address] [place] [phone] Referral ID Status Reason Start Date Expiration Date Visits Requ ested Visits Authorized [id number] Closed 12/30/2021 12/30/2022 1 1 CONDITIONING EQUIPMENT MECHANIC Reason for Visit Reason Comments Pre-visit Testing Orders Encounter Details Date Type Department Care Team Description 12/29/2021 Clinical Communication Department of Jam Pre- visit Testing Orthopedic Surgery Cyrus Souza M.D. Orders in [address] [place] [phone] [place], [place] [phone] (Work) [phone] Social History Tobacco Use Types Packs/Day Years [...] you attend mandaen or Patient refused 2021 temple services? Do you belong to any clubs or No 05/17/2022 organizations such as mandaen groups, unions, [employer] or athletic groups, or school groups? How [...] the highest level of school Associate degree: teta polo, 03/24/2021 you have completed or the highest technical, or vocational p john degree you have received? Sex Assigned at Date Recorded Female 03/01/2019 10:12 AM CDT documented as of this encounter Miscellaneous Notes Telephone Encounter - Deann Watkins - 12/29/2021 1:06 PM CST Please sign order CONDITIONING EQUIPMENT MECHANIC documented in this encounter Plan of Treatment Scheduled Referrals Name Type Priority Associated Order Schedule Diagnoses Orthopedic Surgery Outpatient Referral Routine Pain Shoulder L eft Expected: Pre Op (clinic) 02/24/2022, Expires: 03/28/2023 documented as of this encounter Results SARS CoV-2 RNA, PCR, Varies Asymptomatic (02/25/2022 11:09 AM CDT) [facility] Method Time Signature SARS CoV-2 Swab, [...] Drug Administration an d is used per patient partner's instructions. Performance characteristics were verified by [facility] in a manner consistent with CLIA requirements. Visit the CDC website: https://www.cdc.g ov/coronavirus/ for the most recent guidelines on Coron avirus testing. Fact Sheet for Healthcare Providers: https://www.fda.gov/media/415145/downloa d Fact Sheet for Patients: https://www.fda.gov/media/674210/downloa d Specimen Anatomical Collection Method Collection Time Receive d Time (Source) Location / / Volume Laterality Varies 02/25/2022 11:09 02/25/2022 (Nasopharynx) AM CDT 11:40 AM CDT Alfredo Kamara LAB MICROBIOLOGY - GENERAL O RDERABLES Performing Organization Address City/State/ZIP Code Phon e Number [facility] - [address] [place], [place] [address] [facility] [place] [address] Laboratories-[facility] [address] documented in this encounter Visit Diagnoses Diagnosis Pain Shoulder Left - Primary documented in this encounter Additional Health Concerns Infection Onset Date Last Indicated Resolved Time COVID19 Pending 12/29/2021 12/29/2021 12/29/2021 4:20 PM AIR CONDITIONING EQUIPMENT MECHANIC Assessment Noted Time PHQ-9 Depression Total Score: 16 02/11/2021 12:00 AM C DT documented as of this encounter Care Teams Foot Piece Assembler Relationship Specialty Start Date End Date Elsewhere, Pcp PCP - General Family Medicine 12/25/21 documented as of this encounter
--- OUTSIDE RECORDS SUMMARY | 2022-09-09 08:00 | XMS_ITS | Encounter Summary ---
:1965 Author Organization [facility] Address [address] [place] [address] Care Team Providers Name Role Phone Unavailable Primary Care Provider Unavailable Encounter Details Date Type Department Care Team Description 05/04/2021 Clinical Communication Department of Dario Noel , Orthopedic Surgery in [place], [place] [address] [place] [address] 200 [place] [phone] Social History Tobacco Use Types Packs/Day Years [...] you attend sikhism or Patient refused 2021 yazidi services? Do [...]
--- OUTSIDE RECORDS SUMMARY | 2022-09-09 08:00 | XMS_ITS | Encounter Summary ---
:1965 Author Organization [facility] Address [address] [place] [address] Care Team Providers Name Role Phone Unavailable Primary Care Provider Unavailable Reason for Referral Outpatient (Routine) - Closed Specialty Diagnoses / Procedures Referred By Contact Refer red To Contact Orthopedic Surgery Michael Noble [facility] , P.[facility].-C. [address] [place] [phone] Referral ID Status Reason Start Date Expiration Date Visits Requ ested Visits Authorized [id number] Closed 05/04/2021 05/04/2022 1 1 Scheduling Instructions Pulos Encounter Details Date Type Department Care Team Description 05/04/2021 Orders Only Department of Orthopedic Mirna Noble Surgery in [facility]. [address] [place] [phone] (Wo rk) Social History Tobacco Use Types [...] you attend islam or Patient refused 2021 mandaeism services? Do you belong to any clubs or No 05/17/2022 organizations such as islam groups, unions, fraMediSens or athletic groups, or school groups? How [...]
--- OUTSIDE RECORDS SUMMARY | 2022-09-09 08:00 | XMS_ITS | Encounter Summary ---
:1965 Author Organization [facility] Address [address] [place] [address] Care Team Providers Name Role Phone Unavailable Primary Care Provider Unavailable Reason for Visit MRI/CAT/PET Scan (Routine) - Canceled Specialty Diagnoses / Procedures Referred By Contact Refer red To Contact Radiology Diagnoses Aneurysm Cerebral Unruptured (HCC) Robert Diehl M.D. [facility] Procedures MR Brain Angiogram without IV Contrast [address] [place] [phone] Referral ID Status Reason Start Date Expiration Date Visits V isits Requested Authorized [id number] Canceled 09/15/2020 09/15/2021 1 1 Encounter Details Date Type Department Care Team Description 09/18/2021 Hospital Encounter Department of Robert Diehl ed (Patient: Radiology, Severiano Celaya M.D. Request) [facility], [address] [place], [place] [address] [place] [phone] [place], [place] [phone] (Work) [phone] Social History Tobacco Use Types Packs/Day Years [...] you attend congregational or Patient refused 2021 amish services? Do you belong to any clubs or No 05/17/2022 organizations such as congregational groups, unions, fraYouOS or athletic groups, or school groups? How [...]
--- OUTSIDE RECORDS SUMMARY | 2022-09-09 08:00 | XMS_ITS | Encounter Summary ---
:1965 Author Organization [facility] Address [address] [place] [address] Care Team Providers Name Role Phone Unavailable Primary Care Provider Unavailable Reason for Referral MRI/CAT/PET Scan (Routine) - Closed Specialty Diagnoses / Procedures Referred By Contact Refer red To Contact Radiology Diagnoses Pain Wrist Left Michael Noble Jr., [facility] Procedures MR Wrist Left without IV Contrast P.A.-C. [address] [place] [phone] Referral ID Status Reason Start Date Expiration Date Visits Requ ested Visits Authorized [id number] Closed 03/17/2021 03/17/2022 1 1 Reason for Visit MRI/CAT/PET Scan (Routine) - Closed Specialty Diagnoses / Procedures Referred By Contact Refer red To Contact Radiology Diagnoses Pain Wrist Left Michael Noble Jr., [facility] Procedures MR Wrist Left without IV Contrast P.A.-C. [address] [place] [phone] Referral ID Status Reason Start Date Expiration Date Visits Requ ested Visits Authorized [id number] Closed 03/17/2021 03/17/2022 1 1 Encounter Details Date Type Department Care Team Description 03/24/2021 Hospital Encounter Department of Michael Noble Wrist Left Radiology, Hema Perez Jr.[facility]ritton-[facility], in [address] [place] [address] [place], [place] [phone] [place], [place] [phone] (Work) [phone] Social History Tobacco Use Types Packs/Day Years [...] you attend mosque or Patient refused 2021 samaritan services? Do [...]
--- OUTSIDE RECORDS SUMMARY | 2022-09-09 08:00 | XMS_ITS | Encounter Summary ---
:1965 Author Organization [facility] Address [address] [place] [address] Care Team Providers Name Role Phone Unavailable Primary Care Provider Unavailable Reason for Visit Physical Therapy (Routine) - Closed Specialty Diagnoses / Procedures Referred By Contact Refer red To Contact Diagnoses Dissociation Scapholunate Left Dario Noel M.D. [facility] Procedures PT or OT eval and treat (first available) [address] [place] [phone] Referral ID Status Reason Start Date Expiration Date Visits Requ ested Visits Authorized [id number] Closed 06/08/2021 06/08/2022 99 99 Encounter Details Date Type Department Care Team Description 06/08/2021 Clinical Support Department of Physical German Noel M.D. [address] [place] [phone] Pain Wrist Left (Primary Dx); Medicine and Veena Quevedo M.S., C.H.T., O.T. [address] [place] [phone] Dissociation Scapholunate Left Rehabilitation in [place], [place] [address] [place] [phone] Social History Tobacco Use Types Packs/Day [...] you attend hinduism or Patient refused 2021 restoration services? Do [...] (HCC) ??? Nicotine Dependence Unspecified ??? Other Multimedia Developer Current Drug Therapy Past Surgical History: Procedure [...] the following home instruction handouts: Splint Receipt [id number]. Active Hand Exercises (Six Pack) [id number]. Active Wrist Exercises [id number] Assessment Clinical Impression: The patient tolerated the [...]
--- OUTSIDE RECORDS SUMMARY | 2022-09-09 08:00 | XMS_ITS | Encounter Summary ---
:1965 Author Organization [facility] Address [address] [place] [address] Care Team Providers Name Role Phone Unavailable Primary Care Provider Unavailable Encounter Details Date Type Department Care Team Description 09/23/2021 Hospital Encounter Department of Alfredo Herrera Total Joint Radiology, Anh Gonzales Arthroplasty Initial Building, in [address] [place] [address] ([facility]) [facility] [phone] [place] [address] [place], [place] (Work) [phone] Social History Tobacco Use Types Packs/Day Years [...] you attend yazdanism or Patient refused 2021 faith services? Do [...]
--- OUTSIDE RECORDS SUMMARY | 2022-09-09 08:00 | XMS_ITS | Encounter Summary ---
:1965 Author Organization [facility] Address [address] [place] [address] Care Team Providers Name Role Phone Unavailable Primary Care Provider Unavailable Reason for Visit Reason Comments Nicotine Dependence Encounter Details Date Type Department Care Team Description 07/24/2021 Clinical Communication Department of [facility], Carolyn Mccarthy cotine Dependence Nicotine M.S., Dependence, C.T.T.S., [facility], L.P.C.C. in [address] [place] [phone] [place], [place] [phone] (Work) [phone] Social History Tobacco Use Types Packs/Day Years [...] you attend orthodoxy or Patient refused 2021 latter day services? [...]
--- OUTSIDE RECORDS SUMMARY | 2022-09-09 08:00 | XMS_ITS | Encounter Summary ---
:1965 Author Organization [facility] Address 200 [place] [address] Care Team Providers Name Role Phone Unavailable Primary Care Provider Unavailable Reason for Referral Outpatient (Routine) - Closed Specialty Diagnoses / Procedures Referred By Contact Refer red To Contact Diagnoses Painful Total Joint Arthroplasty Initial (HCC) Alfredo Herrera [facility] Procedures US Major Joint Aspiration and or Injection Left O.P.A.-C. 200 [place] [phone] Referral ID Status Reason Start Date Expiration Date Visits Requ ested Visits Authorized [id number] Closed 09/07/2021 09/07/2022 1 1 Outpatient (Routine) - Closed Specialty Diagnoses / Procedures Referred By Contact Refer red To Contact Diagnoses Painful Total Joint Arthroplasty Initial (HCC) Alfredo Herrera [facility] Procedures US Musculoskeletal Shoulder Left O.P.A.-C. 200 [place] [phone] Referral ID Status Reason Start Date Expiration Date Visits Requ ested Visits Authorized [id number] Closed 09/07/2021 09/07/2022 1 1 MRI/CAT/PET Scan (Routine) - Closed Specialty Diagnoses / Procedures Referred By Contact Refer red To Contact Radiology Diagnoses Painful Total Joint Arthroplasty Initial (HCC) Alfredo Herrera [facility] Procedures CT Shoulder Left without IV Contrast O.P.A.-C. [address] [place] [address] Referral ID Status Reason Start Date Expiration Date Visits Requ ested Visits Authorized [id number] Closed 09/07/2021 09/07/2022 1 1 Reason for Visit Reason Comments Pre-visit Testing Orders L shldr - prev. TSA Encounter Details Date Type Department Care Team Description 09/07/2021 Clinical Communication Department of Jam, Pre- visit Testing Orthopedic Surgery Cyrus Souza M.D. Orders (L shldr - in [address] prev[address] TSA) [place], [place] [address] [place] [phone] [place], [place] [phone] (Work) [phone] Social History Tobacco Use Types Packs/Day Years [...] PROCEDURES Mycobacterial Culture (09/25/2021 1:48 PM CDT) Istpika Method Time Signature Mycobacterial No growth 11/07/2021 DTL Culture after 42 1:03 AM SKULL CHOPPER days of incubation . Specimen Anatomical Collection Method Collection Time Receive d Time (Source) Location / / Volume Laterality Fluid (Synovial 09/25/2021 1:48 PM 2020 3:42 Fluid, Left CDT PM CDT Shoulder) Comment: Specimen Source Site: Fluid Narrative [facility] - 11/07/2021 1:03 AM SKULL CHOPPER Fungal and Mycobacteria specimens plated for culture, volume inadequate for optimal recovery. Alfredo Kamara LAB MICROBIOLOGY - GENERAL O RDERABLES Performing Organization Address City/State/ZIP Code Phon e Number [facility] - [address] [place], [place] [address] [facility] [place] [address] [facility] [address] Fungal Culture, Routine (09/25/2021 1:48 PM CDT) Istpika Method Time Signature Fungal No growth 10/20/2021 DTL Culture, after 24 1:01 AM SKULL CHOPPER Routine days of incubation. Specimen Anatomical Collection Method Collection Time Receive d Time (Source) Location / / Volume Laterality Fluid (Synovial 09/25/2021 1:48 PM 2020 3:42 Fluid, Left CDT PM CDT Shoulder) Comment: Specimen Source Site: Fluid Narrative [facility] - 10/20/2021 1:01 AM SKULL CHOPPER Fungal and Mycobacteria specimens plated for culture, volume inadequate for optimal recovery. Alfredo Kamara LAB MICROBIOLOGY - GENERAL O RDERABLES Performing Organization Address [facility] Phon e Number [facility] - 200 [place], [place] [address] [facility] [place] [address] [facility] Crystal Identification, Synovial Fluid (09/25/2021 1:48 PM CDT) [facility] Time Signature Crystal ID, None seen [...] AND STOOLS O RDERABLES Performing Organization Address City/[facility] Phon e Number [facility] - 200 [place], [place] [address] [place] [address] (ABNORMAL) Broad Range Bacteria PCR+Sequencing (09/25/2021 1:48 PM CDT) Component Value Ref Test Analysis Performed At [facility] gist Range Method Time Signature Broad Range This test was developed and its performance characteri stics 10/06/2021 DTL Bacteria determined by [facility] in a manner consistent with 1:24 PM SKULL CHOPPER PCR+Sequencin CLIA requirements. This test has not been cleared or g approved by the U.S. Food and Drug Administration. (A) Broad Range STAPHYLOCOCCUS EPIDERMIDIS 10/06/2021 DTL Bacteria DNA detected 1:24 PM SKULL CHOPPER PCR+Sequencin (A) g Comment: Semi-Urgent Result. Semi-Urgent This is a semi-urgent result [facility] - () [facility] Specimen Anatomical Collection Method Collection Time Receive d Time (Source) Location / / Volume Laterality Fluid (Synovial 09/25/2021 1:48 PM 2020 3:42 Fluid, Left CDT PM CDT Shoulder) Comment: Specimen Source Site: Fluid Narrative [facility] - 10/06/2021 1:24 PM SKULL CHOPPER Fungal and Mycobacteria specimens plated for culture, volume inadequate for optimal recovery. Alfredo Kamara LAB MICROBIOLOGY - GENERAL O MARY Performing Organization Address [facility] Phon e Number [facility] - [address] Bacterial Culture, Anaerobic + Susc (09/25/2021 1:48 PM CDT) Istpika Method Time Signature Bacterial No growth 10/09/2021 DTL Culture, after 14 7:41 AM SKULL CHOPPER Anaerobic + days of Susc incubation. Specimen Anatomical Collection Method Collection Time Receive d Time (Source) Location / / Volume Laterality Fluid (Synovial 09/25/2021 1:48 PM 2020 3:42 Fluid, Left CDT PM CDT Shoulder) Comment: Specimen Source Site: Fluid Narrative [facility] - 10/09/2021 7:41 AM SKULL CHOPPER Fungal and Mycobacteria specimens plated for culture, volume inadequate for optimal recovery. Alfredo Kamara LAB MICROBIOLOGY - GENERAL O MARY Performing Organization Address City/[facility] Phon e Number [facility] - [address] (ABNORMAL) Bacterial Culture, Aerobic + Susc (09/25/2021 1:48 PM CDT) Component Value Ref Test Analysis Performed At Istpika Range Method Time Signature Bacterial STAPHYLOCOCCUS EPIDERMIDIS 09/30/2021 DT L Culture, One Elmo 2:35 PM CDT Aerobic + (A) Susc Comment: Semi-Urgent Result. Semi-Urgent This is a semi-urgent result [facility] () [facility] Specimen Anatomical Collection Method Collection Time Receive d Time (Source) Location / / Volume Laterality Fluid (Synovial 09/25/2021 1:48 PM 2020 3:42 Fluid, Left CDT PM CDT Shoulder) Comment: Specimen Source Site: Fluid Narrative [facility] - 09/30/2021 2:35 [...] Organization Address City/State/ZIP Code Phon e Number [facility] - [address] [place], [place] [address] [place] [address] [facility] [address] Gram Stain (09/25/2021 [...] Organization Address City/State/ZIP Code Phon e Number [facility] - [address] [place], [place] [address] [facility] [place] [address] [facility] [address] [place] Shoulder [...] (ABNORMAL) Sedimentation Rate (09/23/2021 9:07 AM CDT) [facility] gist Method Time Signature Sedimentation 31 (H) 2 - 22 09/23/2021 DTL Rate, B mm/h 10:46 AM CDT Specimen Anatomical Collection Method Collection Time Receive d Time (Source) Location / / Volume Laterality Blood (Blood, 09/23/2021 9:07 AM 09/23/20 21 9:30 Venous) CDT AM CDT Alfredo Kamara LAB BLOOD ADD-ON Performing Organization Address [facility] Phon e Number [facility] - 200 [place], [place] [address] [facility] [place] [address] CRP (C-Reactive Protein) (09/23/2021 9:07 AM CDT) P athologist Signature C-Reactive <3.0 <=8.0 mg/L 09/23/2021 DTL Protein (CRP), 10:30 AM CDT S Specimen Anatomical Collection Method Collection Time Receive d Time (Source) Location / / Volume Laterality Blood (Blood, 09/23/2021 9:07 AM 09/23/20 21 9:57 Venous) CDT AM CDT Alfredo Kamara LAB BLOOD ADD-ON Performing Organization Address [facility] Phon e Number [facility] - [address] [place], [place] [address] [place] [address] (ABNORMAL) CBC with Differential, Blood (09/23/2021 9:07 [...] Organization Address City/State/ZIP Code Phon e Number [facility] - [address] [place], [place] [address] [facility] [place] [address] [facility] [address] documented in this [...]
--- OUTSIDE RECORDS SUMMARY | 2022-09-09 08:00 | XMS_ITS | Encounter Summary ---
:1965 Author Organization [facility] Address [address] [place] [address] Care Team Providers Name Role Phone Unavailable Primary Care Provider Unavailable Reason for Referral Outpatient (Routine) - Closed Specialty Diagnoses / Procedures Referred By Contact Refer red To Contact Diagnoses Dissociation Scapholunate Left Michael Downs M.D. [facility] Procedures ORS Cast Room Visit [address] [place] [phone] Referral ID Status Reason Start Date Expiration Date Visits Requ ested Visits Authorized [id number] Closed 03/24/2021 03/24/2022 1 1 Reason for Visit Reason Comments Follow-up Outpatient (Routine) - Closed Specialty Diagnoses / Procedures Referred By Contact Refer red To Contact Diagnoses Dissociation Scapholunate Left Michael Downs M.D. [facility] Procedures ORS Cast Room Visit [address] [place] [phone] Referral ID Status Reason Start Date Expiration Date Visits Requ ested Visits Authorized [id number] Closed 03/24/2021 03/24/2022 1 1 Encounter Details Date Type Department Care Team Description 03/24/2021 Hospital Encounter Department of Paul Downs M.D. [address] [place] [phone] Dissociation Orthopedic Surgery Dario Noel M.D. [address] [place] [phone] Scapkimiunate Left in [place], [place] [address] [place] [address] Social History Tobacco Use Types Packs/Day Years [...] you attend mormonism or Patient refused 2021 temple services? Do [...] with 70/60 degrees on the contralateral side. [employer] strength of 10 kg compared to 23 [...] short-arm cast was applied by the castroom press technician - The patient is nonweightbearing bearing [...] 70/60 degrees on the contr alateral side. ??Vp Of Technology strength of 10 kg compared to 23 [...] ??The clenched fist view was obtained of OYE! hands, but unfortunately is difficult to assess [...] cast was applied by the kevin garcia press technician - The patient is nonweightbearing bearin [...]
--- OUTSIDE RECORDS SUMMARY | 2022-09-09 08:00 | XMS_ITS | Encounter Summary ---
:1965 Author Organization [facility] Address [address] [place] [address] Care Team Providers Name Role Phone Unavailable Primary Care Provider Unavailable Reason for Referral Outpatient (Routine) - Closed Specialty Diagnoses / Procedures Referred By Contact Refer red To Contact Diagnoses Dissociation Scapholunate Left Michael Downs M.D. [facility] Procedures ORS Cast Room Visit [address] [place] [phone] Referral ID Status Reason Start Date Expiration Date Visits Requ ested Visits Authorized [id number] Closed 05/08/2021 05/08/2022 1 1 Outpatient (Routine) - Closed Specialty Diagnoses / Procedures Referred By Contact Refer red To Contact Diagnoses Dissociation Scapholunate Left Michael Downs M.D. [facility] Procedures ORS Cast Room Visit [address] [place] [phone] Referral ID Status Reason Start Date Expiration Date Visits Requ ested Visits Authorized [id number] Closed 05/08/2021 05/08/2022 1 1 Reason for Visit Reason Onset Date Comments Left Without Being Seen 07/17/2021 Outpatient (Routine) - Closed Specialty Diagnoses / Procedures Referred By Contact Refer red To Contact Orthopedic Surgery [facility] [address] [place] [phone] Referral ID Status Reason Start Date Expiration Date Visits Requ ested Visits Authorized [id number] Closed 05/04/2021 05/04/2022 1 1 Encounter Details Date Type Department Care Team Description 05/08/2021 Office Visit Department of Pull[place], Dario Alejo, Dissocia tion Scapholunate Left (Primary Dx); Orthopedic Surgery in M.D. Procedure And Treatment Not Carried Out Due To Patient Leaving Prior To Being Seen By Health Care Provider [place], [place] [address] [facility] 200 [place] [phone] Social History Tobacco Use Types Packs/Day Years [...] you attend latter-day or Patient refused 2021 anabaptism services? Do [...]
--- OUTSIDE RECORDS SUMMARY | 2022-09-09 08:00 | XMS_ITS | Encounter Summary ---
:1965 Author Organization [facility] Address [address] [place] [address] Care Team Providers Name Role Phone Unavailable Primary Care Provider Unavailable Reason for Referral Outpatient (Routine) - Closed Specialty Diagnoses / Procedures Referred By Contact Refer red To Contact Diagnoses Dissociation Scapholunate Left Michael Downs M.D. [facility] Procedures ORS Cast Room Visit [address] [place] [address] Referral ID Status Reason Start Date Expiration Date Visits Requ ested Visits Authorized [id number] Closed 03/24/2021 03/24/2022 1 1 Outpatient (Routine) - Closed Specialty Diagnoses / Procedures Referred By Contact Refer red To Contact Diagnoses Dissociation Scapholunate Left Michael Downs M.D. [facility] Procedures ORS Cast Room Visit [address] [place] [address] Referral ID Status Reason Start Date Expiration Date Visits Requ ested Visits Authorized [id number] Closed 03/24/2021 03/24/2022 1 1 Reason for Visit Reason Comments Pain Appointment Request (Routine) - Closed Specialty Diagnoses / Procedures Referred By Contact Refer red To Contact Orthopedic Surgery Diagnoses Fracture Wrist Hand Closed Initial Referral ID Status Reason Start Date Expiration Date Visits Requ ested Visits Authorized [id number] Closed 03/16/2021 03/16/2022 1 1 Encounter Details Date Type Department Care Team Description 03/24/2021 Admin Visit Department of Dario Noel Dissocia tion Orthopedic Surgery in M.D. Scapholunate Left [place], [place] 200 [facility] (Primary Dx) [address] [place] [phone] Social History Tobacco Use Types Packs/Day Years [...] you attend zoroastrianism or Patient refused 2021 jehovah's witness services? [...] 70/60 degrees on the contr alateral side. ??Lifter Driver strength of 10 kg compared to 23 [...] cast was applied by the kevin garcia tool grinding technician - The patient is nonweightbearing bearin [...]
--- OUTSIDE RECORDS SUMMARY | 2022-09-09 08:00 | XMS_ITS | Encounter Summary ---
:1965 Author Organization [facility] Address [address] [place] [address] Care Team Providers Name Role Phone Unavailable Primary Care Provider Unavailable Reason for Visit Reason Comments Nicotine Dependence Encounter Details Date Type Department Care Team Description 07/30/2021 Clinical Communication Department of [facility], Carolyn Mccarthy cotine Dependence Nicotine M.S., Dependence, C.T.T.S., [facility], L.P.C.C. in [address] [place] [phone] [place], [place] [phone] (Work) [phone] Social History Tobacco Use Types Packs/Day Years [...]
--- OUTSIDE RECORDS SUMMARY | 2022-09-09 08:00 | XMS_ITS | Encounter Summary ---
:1965 Author Organization [facility] Address [address] [place] [address] Care Team Providers Name Role Phone Unavailable Primary Care Provider Unavailable Reason for Visit Reason Comments Nicotine Dependence Encounter Details Date Type Department Care Team Description 07/16/2021 Clinical Communication Department of [facility], Carolyn Mccarthy cotine Dependence Nicotine M.S., Dependence, C.T.T.S., [facility], L.P.C.C. in [address] [place] [phone] [place], [place] [phone] (Work) [phone] Social History Tobacco Use Types Packs/Day Years [...] you attend evangelical or Patient refused 2021 adventist services? Do [...]
--- OUTSIDE RECORDS SUMMARY | 2022-09-09 08:00 | XMS_ITS | Encounter Summary ---
:1965 Author Organization [facility] Address [address] [place] [address] Care Team Providers Name Role Phone Unavailable Primary Care Provider Unavailable Reason for Visit Reason Comments Pain Appointment Request (Routine) - Closed Specialty Diagnoses / Procedures Referred By Contact Refer red To Contact Orthopedic Surgery Diagnoses Arthroplasty Total Shoulder Replacement Status Post Left David Cohn M.D. [address] [facility] [address] [place] [address] Referral ID Status Reason Start Date Expiration Date Visits Requ ested Visits Authorized [id number] Closed 09/04/2021 09/04/2022 1 1 Encounter Details Date Type Department Care Team Description 09/23/2021 Comprehensive Visit Department of Cyrus Polk Pain Shoulder Left Orthopedic Surgery Lilian Souza (Primary Dx) in [address] [place] [phone] [place], [place] [phone] (Work) [phone] Social History Tobacco Use Types Packs/Day Years [...] 05/17/2022 organizations such as restorationism groups, unions, [employer] or athletic groups, or school groups? How [...]
--- OUTSIDE RECORDS SUMMARY | 2022-09-09 08:00 | XMS_ITS | Encounter Summary ---
:1965 Author Organization [facility] Address [address] [place] [address] Care Team Providers Name Role Phone Unavailable Primary Care Provider Unavailable Reason for Referral Outpatient (Routine) - Closed Specialty Diagnoses / Procedures Referred By Contact Refer red To Contact Orthopedic Surgery Dario Noel M .D. [facility] 200 [place] [address] Referral ID Status Reason Start Date Expiration Date Visits Requ ested Visits Authorized [id number] Closed 06/08/2021 06/08/2022 1 1 Physical Therapy (Routine) - Closed Specialty Diagnoses / Procedures Referred By Contact Refer red To Contact Diagnoses Dissociation Scapholunate Left Dario Noel M.D. [facility] Procedures PT or OT eval and treat (first available) [address] [place] [address] [phone] Referral ID Status Reason Start Date Expiration Date Visits Requ ested Visits Authorized [id number] Closed 06/08/2021 06/08/2022 99 99 Outpatient (Routine) - Closed Specialty Diagnoses / Procedures Referred By Contact Refer red To Contact Diagnoses Dissociation Scapholunate Left Michael Downs M.D. [facility] Procedures ORS Cast Room Visit [address] [place] [phone] Referral ID Status Reason Start Date Expiration Date Visits Requ ested Visits Authorized [id number] Closed 05/08/2021 05/08/2022 1 1 Reason for Visit Reason Comments Cast Check Follow-up Outpatient (Routine) - Closed Specialty Diagnoses / Procedures Referred By Contact Refer red To Contact Diagnoses Dissociation Scapholunate Left Michael Downs M.D. [facility] Procedures ORS Cast Room Visit [address] [place] [address] [phone] Referral ID Status Reason Start Date Expiration Date Visits Requ ested Visits Authorized [id number] Closed 05/08/2021 05/08/2022 1 1 Encounter Details Date Type Department Care Team Description 06/08/2021 Hospital Encounter Department of Paul Downs M.D. [address] [place] [phone] Dissociation Orthopedic Surgery Dario Noel M.D. [address] [place] [phone] Scapholunate Left in [place], [place] [address] [place] [phone] Social History Tobacco Use Types Packs/Day Years [...]
--- OUTSIDE RECORDS SUMMARY | 2022-09-09 08:00 | XMS_ITS | Encounter Summary ---
:1965 Author Organization [facility] Address [address] [place] [address] Care Team Providers Name Role Phone Unavailable Primary Care Provider Unavailable Reason for Referral Outpatient (Routine) - Closed Specialty Diagnoses / Procedures Referred By Contact Refer red To Contact Diagnoses Dissociation Scapholunate Left Michael Downs M.D. [facility] Procedures ORS Cast Room Visit [address] [place] [phone] Referral ID Status Reason Start Date Expiration Date Visits Requ ested Visits Authorized [id number] Closed 05/08/2021 05/08/2022 1 1 Reason for Visit Reason Comments Follow-up Outpatient (Routine) - Closed Specialty Diagnoses / Procedures Referred By Contact Refer red To Contact Diagnoses Dissociation Scapholunate Left Michael Downs M.D. [facility] Procedures ORS Cast Room Visit [address] [place] [phone] Referral ID Status Reason Start Date Expiration Date Visits Requ ested Visits Authorized [id number] Closed 05/08/2021 05/08/2022 1 1 Encounter Details Date Type Department Care Team Description 05/08/2021 Hospital Encounter Department of Paul Downs M.D. [address] [place] [phone] Dissociation Orthopedic Surgery Dario Noel M.D. [address] [place] [phone] Scapkimiunate Left in [place], [place] [address] [place] [address] Social History Tobacco Use Types Packs/Day Years [...] you attend holiness or Patient refused 2021 christianity services? Do [...] short-arm cast was applied by the castroom arch support technician - The patient is nonweightbearing bearing [...]
--- OUTSIDE RECORDS SUMMARY | 2022-09-09 08:00 | XMS_ITS | Encounter Summary ---
:1965 Author Organization [facility] Address [address] [place] [address] Care Team Providers Name Role Phone Unavailable Primary Care Provider Unavailable Reason for Visit Reason Comments pain medication Encounter Details Date Type Department Care Team Description 06/04/2021 Clinical Communication Department of Pullazaro, Dario willard medication Orthopedic Surgery Lilian Alejo in [place], [facility] [place], [place] [address] [place] [phone] [place], [place] [phone] (Work) [phone] Social History Tobacco Use Types Packs/Day Years [...] meds/scripts. Patient would like a call - [phone] documented in this encounter Plan of Treatment Not on filedocumented as of this encounter Visit Diagnoses Not on filedocumented in this encounter Additional Health Concerns Assessment Noted Time PHQ-9 Depression Total Score: 16 02/11/2021 12:00 AM C DT documented as of this encounter
--- OUTSIDE RECORDS SUMMARY | 2022-09-09 08:00 | XMS_ITS | Encounter Summary ---
:1965 Author Organization [facility] Address [address] [place] [address] Care Team Providers Name Role Phone Unavailable Primary Care Provider Unavailable Reason for Visit Reason Comments Pre-visit Intake Encounter Details Date Type Department Care Team Description 04/15/2021 Clinical Communication Department of Robert Diehl e-visit Intake Neurology in Lilian Celaya [place], [facility][note 3] [place], [place] [address] [place] [phone] [place], [place] [phone] (Work) [phone] Social History Tobacco Use Types Packs/Day Years [...] you attend mormonism or Patient refused 2021 hinduism services? Do [...]
--- OUTSIDE RECORDS SUMMARY | 2022-09-09 08:00 | XMS_ITS | Encounter Summary ---
:1965 Author Organization [facility] Address [address] [place] [address] Care Team Providers Name Role Phone Unavailable Primary Care Provider Unavailable Reason for Visit Reason Comments Med Refill Encounter Details Date Type Department Care Team Description 06/04/2021 Refill Department of Orthopedic Pulos, Dario Alejo M.D. Med Refill Surgery in [address] [phone] [place] [address] [place] [phone] Social History Tobacco Use Types Packs/Day Years [...]
--- OUTSIDE RECORDS SUMMARY | 2022-09-09 08:01 | XMS_ITS | Encounter Summary ---
:1965 Author Organization [facility] Address 200 [place] [address] Care Team Providers Name Role Phone Unavailable Primary Care Provider Unavailable Reason for Referral Outpatient (Routine) - Closed Specialty Diagnoses / Procedures Referred By Contact Refer red To Contact Neurological Surgery Jeannette Cote [place] [facility] Lilian 200 [place] [phone] Referral ID Status Reason Start Date Expiration Date Visits Requ ested Visits Authorized [id number] Closed 02/17/2021 02/17/2022 1 1 Scheduling Instructions Please schedule with Chief A Neurosurger y Service (Dr. Suhail Benjamin). 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 [facility] Procedures CT Head Neck Angiogram with IV Contrast 200 [place] [address] Referral ID Status Reason Start Date Expiration Date Visits Requ ested Visits Authorized [id number] Closed 02/17/2021 02/17/2022 1 1 Encounter Details Date Type Department Care Team Description 02/17/2021 Orders Only Department of Jeannette Cote Cerebral Infarction Neurologic Surgery jimmy Souza M.D. Due To Embolism [place], [place] [address] [facility] Vertebral Artery (HCC) [address] [place], [place] (Primary Dx) [place] [phone] Social History Tobacco Use Types Packs/Day Years [...] you attend druze or Patient refused 2021 rastafari services? Do [...] Neuroradiology ARZ LOS, Neuroradiology T omography FLA [facility] Specimen (Source) Anatomical Collection Method [...] ane urysms. 3. 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 Otherwise [place] is intact. Dolichoectasia of [...] 2 mm left supraclinoid aneurysm (557). Otherwise [place] is intact. Dolichoectasia of [...] ane urysms. 3. 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 Jeannette [...]
--- OUTSIDE RECORDS SUMMARY | 2022-09-09 08:01 | XMS_ITS | Encounter Summary ---
:1965 Author Organization [facility] Address [address] [place] [address] Care Team Providers Name Role Phone Unavailable Primary Care Provider Unavailable Reason for Visit Reason Comments Pre-scheduling Questionnaire Hand Pre-Scheduling Qu estionnaire Encounter Details Date Type Department Care Team Description 03/16/2021 Clinical Department of Prescheduling, Pre-scheduli ng Communication Orthopedic Surgery Provider Question elizabeth ( in [place], Hand Pre-Sched uling [place] Questionnaire) [address] [place] [phone] Social History Tobacco Use Types Packs/Day Years [...] you attend amish or Patient refused 2021 episcopal services? Do [...]
--- OUTSIDE RECORDS SUMMARY | 2022-09-09 08:01 | XMS_ITS | Encounter Summary ---
:1965 Author Organization [facility] Address [address] [place] [address] Care Team Providers Name Role Phone Unavailable Primary Care Provider Unavailable Reason for Referral Outpatient (Routine) - Closed Specialty Diagnoses / Procedures Referred By Contact Refer red To Contact Diagnoses Pain Wrist Left Michael Noble Jr., [facility] Procedures PM Device interrogation (clinic) P.A.-C. [address] [place] [phone] Referral ID Status Reason Start Date Expiration Date Visits Requ ested Visits Authorized [id number] Closed 03/17/2021 03/17/2022 1 1 RI/CAT/PET Scan (Routine) - Closed Specialty Diagnoses / Procedures Referred By Contact Refer red To Contact Radiology Diagnoses Pain Wrist Left Michael Noble Jr., [facility] Procedures MR Wrist Left without IV Contrast P.A.-C. 200 [place], [place] [phone] Referral ID Status Reason Start Date Expiration Date Visits Requ ested Visits Authorized [id number] Closed 03/17/2021 03/17/2022 1 1 Encounter Details Date Type Department Care Team Description 03/17/2021 Orders Only Department of Michael Noble Wris t Left Orthopedic Surgery in Tona Patel Jr. (Primary Dx) [place], [place] [address] [place] [phone] Social History Tobacco Use Types Packs/Day Years [...]
--- OUTSIDE RECORDS SUMMARY | 2022-09-09 08:01 | XMS_ITS | Encounter Summary ---
:1965 Author Organization [facility] Address [address] [place] [address] Care Team Providers Name Role Phone Unavailable Primary Care Provider Unavailable Reason for Visit Reason Comments Vertigo and vision problems [facility] Encounter Details Date Type Department Care Team Description 02/18/2021 Clinical Communication Department of aFzal, Robert mendosa and vision Neurology in Lilian Celaya problems ([facility]) [place], [facility] [address] [place], [place] [address] [place] [phone] [place], [place] [phone] (Work) [phone] Social History Tobacco Use Types Packs/Day Years [...] you attend sabianism or Patient refused 2021 sikhism services? Do [...]
--- OUTSIDE RECORDS SUMMARY | 2022-09-09 08:01 | XMS_ITS | Encounter Summary ---
:1965 Author Organization [facility] Address [address] [place] [address] Care Team Providers Name Role Phone Unavailable Primary Care Provider Unavailable Reason for Visit Reason Comments Communication Encounter Details Date Type Department Care Team Description 02/19/2021 Clinical Communication Department of Rossy Benjamin Neurologic Surgery in [place], [place] Ph.D. [address] [place] [address] 200 [place] [phone] Social History Tobacco Use Types Packs/Day Years [...] you attend jew or Patient refused 2021 oriental orthodox services? [...]
--- OUTSIDE RECORDS SUMMARY | 2022-09-09 08:01 | XMS_ITS | Encounter Summary ---
:1965 Author Organization [facility] Address [address] [place] [address] Care Team Providers Name Role Phone Unavailable Primary Care Provider Unavailable Reason for Visit Outpatient (Routine) - Closed Specialty Diagnoses / Procedures Referred By Contact Refer red To Contact Neurological Surgery Jeannette Cote [place] [facility] [place] M.D. [address] [place] [phone] Referral ID Status Reason Start Date Expiration Date Visits Requ ested Visits Authorized [id number] Closed 02/17/2021 02/17/2022 1 1 Encounter Details Date Type Department Care Team Description 03/12/2021 Office Visit Department of Gonzalez Benjamin Neurologic Surgery in Lilian Jang, Cinthya castorena ([facility]) (Primary [place], [place] Ph.D. Dx) [address] [place] [address] [place] [phone] Social History Tobacco Use Types Packs/Day [...] you attend baptist or Patient refused 2021 orthodox services? Do you belong to any clubs or No 05/17/2022 organizations such as baptist groups, unions, [employer] or athletic groups, or school groups? How [...]
--- OUTSIDE RECORDS SUMMARY | 2022-09-09 08:01 | XMS_ITS | Encounter Summary ---
:1965 Author Organization [facility] Address [address] [place] [address] Care Team Providers Name Role Phone Unavailable Primary Care Provider Unavailable Encounter Details Date Type Department Care Team Description 03/11/2021 Clinical Communication Department of Ana Segura Orthopedic Surgery in [place], [place] [address] [place] [phone] Social History Tobacco Use Types Packs/Day Years [...] you attend faith or Patient refused 2021 druze services? Do [...] Patient would like to be seen in [place]. Referral line to [place] provided to angela batista. Patient aware she will call for apptointment. Telephone Encounter - Jerica Gee L.P.N. - 03/13/2021 9:09 AM CDT Left message to call clinic back. Needs to see a hand surgeon. Telephone Encounter - Christal Abraham L.P.N. - 03/12/2021 3:21 PM CDT Left message for patient to call back. She can contact [place], [place], or sarath frye if she choses. Telephone Encounter - Clemente Schofield M.D. - 03/12/2021 11:23 AM CDT She should see a hand surgeon Telephone Encounter - Esperanza Stratton - 03/11/2021 9:33 AM CDT Reason for Communication: Patient is calling in stating that she is being referred to be seen for a brake in her LEFT hand. Patient is stating that [facility] in [facility] is requesting for patient to be seen by our orthopedic department. Patient is wanting to be seen in [place]. Unable to find any encounters regarding a [...]
--- OUTSIDE RECORDS SUMMARY | 2022-09-09 08:01 | XMS_ITS | Encounter Summary ---
:1965 Author Organization [facility] Address [address] [place] [address] Care Team Providers Name Role Phone Unavailable Primary Care Provider Unavailable Reason for Visit Reason Comments [facility] Follow-up Encounter Details Date Type Department Care Team Description 02/19/2021 Clinical Communication Department of [facility] Neurology in Monica Alvarado R.N. Follow-up [place], [place] [address] [place] [phone] Social History Tobacco Use Types [...] you attend gnosticism or Patient refused 2021 yazidism services? Do [...] reports she has not yet picked up frx450 ASA daily and 80 mg Atorvastatin at [...]
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
--- OUTSIDE RECORDS SUMMARY | 2022-09-09 08:01 | XMS_ITS | Encounter Summary ---
:1965 Author Organization [facility] Address [address] [place] [address] Care Team Providers Name Role Phone Unavailable Primary Care Provider Unavailable Reason for Visit Reason Comments Nicotine Dependence Encounter Details Date Type Department Care Team Description 03/10/2021 Clinical Communication Department of [facility], Carolyn Mccarthy cotine Dependence Nicotine M.S., Dependence, C.T.T.S., [facility] in [address] [place] [id number] [place], [place] [phone] (Work) [phone] Social History Tobacco Use Types Packs/Day Years [...] you attend yazdanism or Patient refused 2021 buddhism services? Do [...]
--- OUTSIDE RECORDS SUMMARY | 2022-09-09 08:01 | XMS_ITS | Encounter Summary ---
:1965 Author Organization [facility] Address [address] [place] [address] Care Team Providers Name Role Phone Unavailable Primary Care Provider Unavailable Reason for Visit Reason Comments Pre-visit Intake Encounter Details Date Type Department Care Team Description 03/11/2021 Clinical Communication Department of Sourav Pre- visit Intake Neurologic Surgery Lilian Jang, in [place], Ph.D. [place] [address] [place] [address] [phone] Social History Tobacco Use Types Packs/Day Years [...] you attend mormon or Patient refused 2021 yazidism services? Do [...]
--- OUTSIDE RECORDS SUMMARY | 2022-09-09 08:01 | XMS_ITS | Encounter Summary ---
:1965 Author Organization [facility] Address [address] [place] [address] Care Team Providers Name Role Phone Unavailable Primary Care Provider Unavailable Reason for Visit Reason Comments Follow-up [facility] Patient Encounter Details Date Type Department Care Team Description 02/25/2021 [facility] jimmy Celaya M.D. Patient) [place], [facility] [address] [place], [place] [address] [place] [address] [place], [place] [phone] (Work) [phone] Social History Tobacco Use Types Packs/Day Years [...] you attend restorationist or Patient refused 2021 mormonism services? Do [...] so I advised she report to the [facility] as soon as possible to be [...]
--- OUTSIDE RECORDS SUMMARY | 2022-09-09 08:01 | XMS_ITS | Encounter Summary ---
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 [facility] Procedures CT Head Neck Angiogram with IV Contrast 200 [place], [place] [address] Referral ID Status Reason Start Date Expiration Date Visits Requ ested Visits Authorized [id number] Closed 02/17/2021 02/17/2022 1 1 Reason for Visit MRI/CAT/PET Scan (Routine) - Closed Specialty Diagnoses / Procedures Referred By Contact Refer red To Contact Radiology Diagnoses Cerebral 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 (HCC) Jeannette Cote M.D. [facility] Procedures CT Head Neck Angiogram with IV Contrast 200 [place], [place] [address] Referral ID Status Reason Start Date Expiration Date Visits Requ ested Visits Authorized [id number] Closed 02/17/2021 02/17/2022 1 1 Encounter Details Date Type Department Care Team Description 03/12/2021 Hospital Encounter Department of Jeannette Cote ebral Infarction Radiology, Severiano Souza M.D. Due To Embolism Building, in 200 [facility] Vertebral [place], [place] Artery (HCC) [place] [address] [phone] [place], [place] (Work) [phone] Social History Tobacco Use Types Packs/Day Years [...] you attend judaism or Patient refused 2021 spiritism services? Do [...] urysms. 3. 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 Otherwise [place] is intact. 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 Otherwise [place] is intact. Dolichoectasia of [...] urysms. 3. 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 Jeannette NIELSON CT [...]
--- OUTSIDE RECORDS SUMMARY | 2022-09-09 08:02 | XMS_ITS | Encounter Summary ---
:1965 Author Organization [facility] Address [address] [place] [address] Care Team Providers Name Role Phone Unavailable Primary Care Provider Unavailable Reason for Visit Outpatient (Routine) - Closed Specialty Diagnoses / Procedures Referred By Contact Refer red To Contact Video Medicine Diagnoses Stroke Cerebrovascular Accident Personal History Robert Diehl [place] M.D. [address] [place] [address] Referral ID Status Reason Start Date Expiration Date Visits Requ ested Visits Authorized [id number] Closed 12/30/2020 12/30/2021 1 1 Encounter Details Date Type Department Care Team Description 02/02/2021 Virtual Visit Department of Robert Diehl Stroke Cere brovascular Neurology jimmy Celaya M.D. Accident Personal [place], [place] 200 [facility] History 200 [place] [phone] Social History Tobacco Use Types Packs/Day Years [...] you attend worship or Patient refused 2021 synagogue services? Do you belong to any clubs or No 05/17/2022 organizations such as worship groups, unions, [employer] or athletic groups, or school groups? [...] a.m. Outpatient consultation. Highly appreciative of the [facility]roke [facility] cares. No charge. Electronically signed by: Robert Diehl M.D. 02/02/21 7:46 AM DAY CARE HOME PROVIDER CARE HOME PROVIDER documented in this encounter Plan of Treatment Not on filedocumented as of this encounter Visit Diagnoses Diagnosis Stroke Cerebrovascular Accident Personal History documented in this encounter Additional Health Concerns Assessment Noted Time PHQ-9 Depression Total Score: 23 02/02/2021 11:[address] documented as of this encounter
--- OUTSIDE RECORDS SUMMARY | 2022-09-09 08:02 | XMS_ITS | Encounter Summary ---
:1965 Author Organization [facility] Address [address] [place] [address] Care Team Providers Name Role Phone Unavailable Primary Care Provider Unavailable Encounter Details Date Type Department Care Team Description 02/16/2021 Anesthesia Event Department of Radiology Liban Sunshine APRN, PIER WORKER, DNAP [address] [place] [phone] [facility] Deep Velasquez M.D. [address] [place] [phone] [place] [phone] Anesthesia Record Procedure Summary Procedure Name Responsible Anesthesia Start Anesthesia Stop Anesthesiologist Time Time IR CEREBRAL Liban Sunshine APRN, 02/16/21 0825 02/16/21 1100 INTRACRANIAL ARTERY PIER WORKER, DNAP EMBOLIZATION Events Date Time Event Comment [...] the receiving staff during [facility] we 1. Identified the patient [...] 1,000 units/mL injection 6,000 Units heparin standard 05097 Units/250 mL in 0.45 % Sodium C [...] 02/16/21 0851 by 165 by Temporary Jessie [place] Rayman, Tanner B , (non-tunneled, C.S.T. R.N. [...] you attend holiness or Patient refused 2021 samaritan services? Do you belong to any clubs or No 05/17/2022 organizations such as holiness groups, unions, [employer] or athletic groups, or school groups? How [...] Room / Location: Department of Radiology in [place], [place] Anesthesia Start: 824 Anesthesia Stop: 1100 [...] Dr. Castillo. Location: Department of Radiology in [place], [place] Pertinent components of the patient's history [...] with patient /legal guardian or through an per diem physical therapist. Risks/Benefits/Alternatives of Blood transfusion discussed with patient [...]
--- OUTSIDE RECORDS SUMMARY | 2022-09-09 08:02 | XMS_ITS | Encounter Summary ---
:1965 Author Organization [facility] Address [address] [place] [address] Care Team Providers Name Role Phone Unavailable Primary Care Provider Unavailable Reason for Visit Reason Comments Tahmina/Fazal Encounter Details Date Type Department Care Team Description 01/26/2021 Clinical Communication Department of Robert Diehl W8B/Scharf Neurology in .. [place], [place] 200 [facility] 200 [place] [phone] [phone] Social History Tobacco Use Types Packs/Day Years [...] you attend quaker or Patient refused 2021 adventist services? Do [...] 01/26/2021 5:19 PM CST Great thank you EL SPRAYER Addendum Note - Robert Diehl M.D. - 01/26/2021 2:50 PM ENAMEL SPRAYER Addended by: ROBERT DIEHL on: 01/26/2021 02:50 PM Modules accepted: Orders EL SPRAYER Telephone Encounter - Robert Diehl M.D. - 01/26/2021 2:49 PM CST Believe MRI is ordered now. EL SPRAYER Telephone Encounter - Robert Diehl M.D. - 01/26/2021 2:47 PM CST I am sorry to learn of the patient's additional symptoms Unfortunately we cannot react as quickly as the emergency department which was recommended locally I will order a brain MRI and in-person or video visit to follow-up. Thank you EL SPRAYER Telephone Encounter - Allyssa Amaya - 01/26/2021 12:56 PM CST Patient calls checking the status of this request. Thank you. EL SPRAYER documented in this encounter Plan of Treatment Not on filedocumented as of this encounter Visit Diagnoses Diagnosis Stroke Cerebrovascular Accident Personal History - Primary documented in this encounter Additional Health Concerns Assessment Noted Time PHQ-9 Depression Total Score: 5 04/05/2019 8:00 AM CDT documented as of this encounter
--- OUTSIDE RECORDS SUMMARY | 2022-09-09 08:02 | XMS_ITS | Encounter Summary ---
:1965 Author Organization [facility] Address [address] [place] [address] Care Team Providers Name Role Phone Unavailable Primary Care Provider Unavailable Reason for Visit Reason Onset Date Comments saul med request 02/03/2021 Encounter Details Date Type Department Care Team Description 02/03/2021 Clinical Communication Department of [facility], trinidad Mccarthy med request Nicotine Dependence, M.S., C.T.T.S., [facility]. in [address] [place] [address] [place], [place] [phone] (Work) [phone] Social History Tobacco Use Types Packs/Day Years [...] 02/03/2021 10:16 AM CST Please send to [facility] in [facility] 21 mg patches with refills Nicotrol inhaler with refills Nicotine nasal spray with refills IC FLOOR LAYER documented in this encounter Plan of Treatment Not on filedocumented as of this encounter Visit Diagnoses Not on filedocumented in this encounter Additional Health Concerns Assessment Noted Time PHQ-9 Depression Total Score: 23 02/02/2021 11:[address] documented as of this encounter
--- OUTSIDE RECORDS SUMMARY | 2022-09-09 08:02 | XMS_ITS | Encounter Summary ---
:1965 Author Organization [facility] Address [address] [place] [address] Care Team Providers Name Role Phone Unavailable Primary Care Provider Unavailable Encounter Details Date Type Department Care Team Description 02/11/2021 Ancillary Procedure Department of Radiology [place] in [facility] raúl Quintana 200 [facility] 200 [place] [phone] (Wo rk) Social History Tobacco Use Types [...] bilateral thalami (series 3 image 36), bilateral TELECOMMUNICATION OPERATOR regio n (left greater than right, [...] bilateral thalami (series 3 image 36), bilateral TELECOMMUNICATION OPERATOR regio n (left greater than right, [...] bilateral thalami (series 3 image 36), bilateral TELECOMMUNICATION OPERATOR regio n (left greater than right, [...] bilateral thalami (series 3 image 36), bilateral TELECOMMUNICATION OPERATOR regio n (left greater than right, [...] bilateral thalami (series 3 image 36), bilateral TELECOMMUNICATION OPERATOR regio n (left greater than right, [...] bilateral thalami (series 3 image 36), bilateral TELECOMMUNICATION OPERATOR regio n (left greater than right, [...]
--- OUTSIDE RECORDS SUMMARY | 2022-09-09 08:02 | XMS_ITS | Encounter Summary ---
:1965 Author Organization [facility] Address [address] [place] [address] Care Team Providers Name Role Phone Unavailable Primary Care Provider Unavailable Encounter Details Date Type Department Care Team Description 01/20/2021 Anticoagulation Visit Department of Neurology Elvira Villalta in [facility] raúl SkaggsNBritton 1216 [facility] [address] [place] [address] Social History Tobacco Use Types Packs/Day Years [...] you attend voodoo or Patient refused 2021 mormonism services? Do [...] call from Dr. Rosalva Aguila's nurse at [facility]. She states they have received our fax [...] Transfer of anticoagulation management back to PCP. UAGE ASST documented in this encounter Plan of Treatment Not on filedocumented as of this encounter Visit Diagnoses Not on filedocumented in this encounter Additional Health Concerns Assessment Noted Time PHQ-9 Depression Total Score: 5 04/05/2019 8:00 AM CDT documented as of this encounter
--- OUTSIDE RECORDS SUMMARY | 2022-09-09 08:02 | XMS_ITS | Encounter Summary ---
:1965 Author Organization [facility] Address [address] [place] [address] Care Team Providers Name Role Phone Unavailable Primary Care Provider Unavailable Reason for Referral MRI/CAT/PET Scan (Routine) - Closed Specialty Diagnoses / Procedures Referred By Contact Refer red To Contact Radiology Diagnoses Robert Akhtar M.D. [facility] Procedures CT Head Neck Angiogram with IV Contrast [address] [place], [place] [address] Referral ID Status Reason Start Date Expiration Date Visits Requ ested Visits Authorized [id number] Closed 12/31/2020 12/31/2021 1 1 PAINTER Reason for Visit MRI/CAT/PET Scan (Routine) - Closed Specialty Diagnoses / Procedures Referred By Contact Refer red To Contact Radiology Diagnoses Ataxia Robert Diehl M.D. [facility] Procedures CT Head Neck Angiogram with IV Contrast [address] [place], [place] [address] Referral ID Status Reason Start Date Expiration Date Visits Requ ested Visits Authorized [id number] Closed 12/31/2020 12/31/2021 1 1 Encounter Details Date Type Department Care Team Description 01/30/2021 Hospital Encounter Department of Radiology, Akhil Diehl Ataxia [place] [facility], in M.D. [place], [place] 200 1[address] [facility] [address] [place] [phone] (Babatunde billings) Social History Tobacco Use Types [...] you attend zoroastrianism or Patient refused 2021 mandaeism services? Do [...] this ANGIOGRAM WITH IV (most inpatients PM ACID PAINTER proced ure are in CONTRAST and all the results outpatients) section. documented in this encounter Results CT Head Neck Angiogram with IV Contrast (01/30/2021 3:24 PM ACID PAINTER) Anatomical Region Laterality Modality Head and Neck, Neuroradiology RST LOS, N/A C omputed Tomography, Computed Neuroradiology ARZ LOS, Neuroradiology T omography FLA [facility] Specimen (Source) Anatomical Collection Method Collection Time Re ceived Time Location / / Volume Laterality 01/30/2021 2:25 PM ACID PAINTER Impressions 01/30/2021 3:18 PM ACID PAINTER 1. 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 Slightly decreased high-grade stenosis a t the V3/4 junction with increased flow in the distal V4 segment. 2. Evolving, now chronic right cerebella r infarct. 3. 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 Narrative 01/30/2021 3:18 PM ACID PAINTER EXAM: CT HEAD NECK ANGIOGRAM WITH IV [...] normal caliber bilater al MCAs, ACAs and public improvement inspector. Patent anterior and right posterior communicating [...] normal caliber bilater al MCAs, ACAs and public improvement inspector. Patent anterior and right posterior communicating [...] mg iodine/mL solution Given 01/30/2021 2:29 PM ACID PAINTER 1 00 mL 1-200 mL (OMNIPAQUE) 1-200 mL, intravenous, Once in imaging, contrast, Starting on Tue01/30/21 at 1355, For 1 dose, Imaging Protocol Orders, Dose per Radiant Medication Guidelines sodium chloride (PF) 0.9 % injection 1-1 00 mL Given 01/30/2021 2:29 PM ACID PAINTER 35 mL 1-100 mL, intravenous, Once, On Tue01/30/21 at 1400, For 1 dose, Imaging Protocol Orders documented in this encounter Additional Health Concerns Assessment Noted Time PHQ-9 Depression Total Score: 5 04/05/2019 8:00 AM CDT documented as of this encounter
--- OUTSIDE RECORDS SUMMARY | 2022-09-09 08:02 | XMS_ITS | Encounter Summary ---
:1965 Author Organization [facility] Address [address] [place] [address] Care Team Providers Name Role Phone Unavailable Primary Care Provider Unavailable Encounter Details Date Type Department Care Team Description 02/02/2021 Orders Only Department of Neurology in Bisi Acevedo D.O. [place], [place] 200 [facility] 200 [place] [address] [phone] (Wo rk) Social History Tobacco Use Types [...] you attend voodoo or Patient refused 2021 advent services? Do [...]
--- OUTSIDE RECORDS SUMMARY | 2022-09-09 08:02 | XMS_ITS | Encounter Summary ---
:1965 Author Organization [facility] Address [address] [place] [address] Care Team Providers Name Role Phone Unavailable Primary Care Provider Unavailable Encounter Details Date Type Department Care Team Description 02/05/2021 Orders Only Pharmacy Prior Auth RO Elsewhere, Pcp [phone] Social History Tobacco Use Types Packs/Day Years [...] you attend adventist or Patient refused 2021 taoist services? Do [...]
--- OUTSIDE RECORDS SUMMARY | 2022-09-09 08:02 | XMS_ITS | Encounter Summary ---
:1965 Author Organization [facility] Address [address] [place] [address] Care Team Providers Name Role Phone Unavailable Primary Care Provider Unavailable Reason for Referral Outpatient (Routine) - Closed Specialty Diagnoses / Procedures Referred By Contact Refer red To Contact Home Health Care Diagnoses Stroke (HCC) Chronic Pain Syndrome Stroke Cerebrovascular Accident Personal History Ric Quinn M.D., M.S. [address] [place] [id number] Referral ID Status Reason Start Date Expiration Date Visits Requ ested Visits Authorized [id number] Closed 02/03/2021 02/03/2022 1 1 ET POST INSPECTOR Encounter Details Date Type Department Care Team Description 01/31/2021 - Hospital Encounter [facility] Blanca, Stroke (H CC) (Primary Dx); [facility]; [facility], [address] [place] [address] Stroke Cerebrovascular Accident Personal History [facility], [facility] [phone] floor [phone] [place] [address] (Work) [place], [place] [phone] [address] (Fax) [phone] Social History Tobacco Use Types Packs/Day Years [...] you attend orthodoxy or Patient refused 2021 uatsdin services? Do [...] Comments Blood Pressure 133/71 02/03/2021 5:15 PM PELLET POST INSPECTOR Pulse 92 02/03/2021 5:15 PM PELLET POST INSPECTOR Temperature 36.5 ??C (97.7 ??F) 02/03/2021 5:15 PM PELLET POST INSPECTOR Respiratory Rate 17 02/03/2021 5:15 PM PELLET POST INSPECTOR Oxygen Saturation 97% 02/03/2021 5:15 PM PELLET POST INSPECTOR Inhaled Oxygen Concentration - - Weight 78.8 kg (173 lb 11.6 oz) 01/31/2021 9:39 PM PELLET POST INSPECTOR Height 152.4 cm (5') 01/31/2021 9:39 PM PELLET POST INSPECTOR Body Mass Index 33.93 01/31/2021 9:39 PM PELLET POST INSPECTOR documented in this encounter Discharge Summaries Malcom Torres M.D. - 02/03/2021 2:24 PM CST DISCHARGE SUMMARY BRIEF OVERVIEW Hospital: [facility] Discharge Provider: Nan Rios M.D. [...] ??C, temperature source Oral, resp. rate 17, gyupxy009.4 cm, weight 78.8 kg, SpO2 94 %. [...] were provided to the patient and caregiver(s). ET POST INSPECTOR documented in this encounter Discharge Instructions Discharge InstructionsLaquita Raines - 02/02/2021 7:23 AM CST You were discharge from the Neurology Stroke Service. Please Identify this service name if you call with questions after your hospitalization. ET POST INSPECTOR Discharge Instr - ActivityLeonides Liang P.T. - 02/02/2021 1:13 PM PELLET POST INSPECTOR Physical Therapy Discharge Summary MOBILITY RESTRICTIONS/PRECAUTIONS: Fall [...] 02/02/2021 by Leonides Liang P.T. Contact information: [facility], [address] Melissa, ET POST INSPECTOR AttachmentsThe following attachments cannot be sent through Care Everywhere. 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 - 02/03/2021 1:57 PM CST No PT intervention today as patient was at an MRI this morning, now stating that she has just gone for a walk and plans are for dc to home with intermittent assist from her son. Helen Greer, PT ET POST INSPECTOR Catalina Panchal, R.N. - 02/03/2021 1:49 PM CST Patient discussed at Stroke Multidisciplinary Rounds. Plan for the day: Case Management Following, PT/OT, Medication Management, MRI/MRA Plan for the Stay: Stroke w/u Discharge barriers: Inpatient Needs Re[facility] [place] [facility] [place] ET POST INSPECTOR Nan Rios M.D. - 02/03/2021 10:36 AM [...] pain syndrome, fibromyalgia, and nicotine use disorder. ET POST INSPECTOR Leonides Kumar M.D. - 02/03/2021 7:09 AM [...] [facility]vascular Disease Marketing Traffic Coordinator, Dr. Rios. Please page the [facility] Neurology Stroke and Cerebrovascular Disease service pager at [phone] with any questions. Leonides Kumar M.D. ET POST INSPECTOR Makenzie Figueredo O.T.Katarina - 02/02/2021 3:24 PM [...] home to ensure her safety. From the Project Technician's perspective, the patient is not an inpatient [...] Treatment Time (min): 32 min MILA Cardoza ET POST INSPECTOR Catalina Panchal RBetsy - 02/02/2021 2:31 PM CST Patient discussed at Stroke Multidisciplinary Rounds. Plan for the day: MRI, Case Management Consult, PT/OT, Medication Management Plan for the Stay: Stroke w/u Discharge barriers: Inpatient Needs Recommended discharge [place] [facility] [place] ET POST INSPECTOR Leonides Liang P.T. - 02/02/2021 12:58 PM [...] Time (min): 32 min Leonides Liang P.T. ET POST INSPECTOR Nan Rios M.D. - 02/02/2021 10:27 AM [...] pain syndrome, fibromyalgia, and nicotine use disorder. ET POST INSPECTOR Jessie Rock Pharm.D., R.Ph. - 02/02/2021 10:21 AM CST Images from the original note were not included. Admission Medication History Note Adherence issues: Unable to assess Medication list source: Pharmacy or dispense records. Medication list provided by [facility] in [place]. Most recent dispensing information obtained. Multiple changes [...] by mouth 2 (two) times a day. ET POST INSPECTOR Leonides Kumar M.D. - 02/02/2021 6:55 AM [...] [facility]erebrovascular Disease Marketing Traffic Coordinator, Dr. Rios. Please page the [facility] Neurology Stroke and Cerebrovascular Disease service pager at [phone] with any questions. Leonides Kumar M.D. ET POST INSPECTOR Leonides Kumar M.D. - 02/01/2021 6:36 AM [...] [facility]roke and Cerebrovascular Disease Marketing Traffic Coordinator, Dr. Rios. Please page the [facility] Neurology Stroke and Cerebrovascular Disease service pager at [phone] with any questions. Leonides Kumar M.D. ET POST INSPECTOR documented in this encounter H&P Notes Nan [...] segment. ?? The patient presented to the [place] ED with acute onset vertigo which occurred yesterday afternoon while she was at [facility]. She bent forward and complained of neck pain which radiated to the top of her head. She also complained of warmth all over her body and generalised weakness. ?? With effort, she was able to ambulate back to her car with her groceries, where she met her son, whothen took her to the [facility] ED. There, the patient had a head [...] pain syndrome, fibromyalgia, and nicotine use disorder. ET POST INSPECTOR Marbella Cutler M.D. - 02/01/2021 2:55 AM [...] V4 segment. The patient presented to the [place] ED with acute onset vertigo which occurred yesterday afternoon while she was at [facility]. She bent forward and complained of neck pain which radiated to the top of her head. She also complained of warmth all over her body and generalised weakness. With effort, she was able to ambulate back to her car with her groceries, where she met her son, whothen took her to the [facility] ED. There, the patient had a head CT the chronic left cerebellar infarct. INR was 1.35. She was transferred to [facility] for further evaluation. On the floor, she was hemodynamically stable but complained of ongoing vertigo, with difficulty keeping her eyes open. Social history: she is currently unemployed but previously worked at a [employer] and [employer]. She is fully independent of her ADLs [...] admitting resident. Please page the Stroke service [phone] with questions/concerns. ET POST INSPECTOR Gerald England M.D. - 01/31/2021 9:16 PM [...] More than three times a week Attends uatsdin service: Patient refused Active member of club [...] and normal caliber bilateral MCAs, ACAs and trench pipe layer. Patent anterior and right posterior communicating arteries. [...] page the Cerebrovascular Neurology Service pager at [phone] with any questions or concerns. [facility] Stroke Neurology Service Negative Turner Apprentice: Nan England M.D. STROKE DOCUMENTATION: Stroke Center [...] to hemorrhage and/or hemorrhagic risk Prestroke modified Prague Score (mRS): 1 - No significant disability. [...] 30 or greater) and hormonal contraceptive use ET POST INSPECTOR documented in this encounter Consult Notes Pamela Middleton M.S., L.Sapna.NeriC., C.T.T.S. - 02/03/2021 10:08 AM CSTAssociated Order(s): IP CONSULT TO INTERNAL MEDICINE NICOTINE DEPENDENCE; IP CONSULT TO INTERNAL MEDICINE NICOTINE DEPENDENCE SUBJECTIVE Consults REASON FOR CONSULT Admitting Service: Neurology Reason for Consult: Tobacco Use Disorder HISTORY OF PRESENT ILLNESS Angie Bender is a 55 y.o. female who was seen at [facility] and is being evaluated for tobacco use [...] provided the patient with educational materials and [facility] contact information. Patient is unable to [...] Middleton M.S., Delvin, C.T.T.S. 02/03/2021 10:08 AM PELLET POST INSPECTOR ET POST INSPECTOR Catalina Panchal, RBrittonNBritton - 02/02/2021 2:11 PM CSTAssociated Order(s): IP CONSULT TO CARE MANAGEMENT Discharge Planning Assessment SUBJECTIVE Referral Data Referral Source: Early Screen for Discharge Planning Referral Reason: Discharge Planning Discharge Planning: Home health Who was present during the interview?: Patient Buccaro Services Used: No Patient Information Primary Caregiver: Self Legal Information Legal Decision Maker: Self Legal Status: Voluntary Caregiver Information Self Services Requested Home Health: retirement Level of Care: Intermediate OBJECTIVE Functional Status (ADLs) Functional Status: Minimum assistance Assistive Devices: Walker, Shower chair, Eyeglasses, Hearing aids Dressing: Independent Feeding: Independent Bathing: Independent Grooming: Independent Toileting: Independent Transfer to/from Bed, Chair Etc.: Independent Mobility: Independent Meal Prep: Independent Medication Setup/Administration: Needs assistance Telephone Use: Independent Housekeeping: Independent Shopping: Independent Managing Finances: Independent Behavior: Oriented Communication: Talks, Understands speaking, Understands Colombian Environmental Supports Home Environment: House Anticipated Needs/Assistive [...] Nurse visit Home Care Agency Name : [facility] Anticipated Discharge Destination: Home-Health Care [facility] Recommended Discharge Services: Nursing Does the patient need discharge transport arranged?: No ASSESSMENT / PLAN Plan Assessment: The timber repairer met with Angie Bender to discuss her current hospitalization and home goingneeds. The patient was unaccompanied. The patient was a reliable historian, but was lacking completedetails at times. The role of timber repairer was reviewed. The patient reviewed her prior level of care and support system. The patient receives support from her son. The patient described her living environment as a single level home with level entry. Housekeeping, grocery shopping, meal prep, and other household responsibilities have previously been completed by patient. timber repairer discussed the patient's potential needs at [...] dismissal will be provided by family--son. 3. timber repairer recommended nothing at this time. 4. timber repairer provided information regarding the dismissal process. 5. timber repairer placed or requested the following hospital-based consult orders and/or referrals:None. 6. timber repairer will continue to assess for homegoing needs with the interdisciplinary team. 7. timber repairer encouraged the patient to reach out with any questions/concerns. Care Management will continue to follow. Patient to discharge with home health care. [facility] - Admitted Since 01/31/2021 The patient receives nursing home visits 1-2x week. She has qualified for HOSPITAL NURSE LIAISON, homemaking, and home health aide visits, but [...] With: Alone Receives Help From: Family, Friend(s), infirmary attendant ADL Assistance: Independent IADL/Homemaking Assistance: Required assistance IADL/Homemaking Assistance Comments: Has assistance with meals on wheels, cleaning, and medication management Occupational Role: On disability Prior Mobility/Functional Transfers Level of [place]: Independent Previous Transfer/Mobility Assistance Comments: Patient reports [...] Time (min): 25 min Radha Samuel P.T. ET POST INSPECTOR Rosario Lopez O.Jolanta. - 02/01/2021 3:17 PM [...] With: Alone Receives Help From: Family, Friend(s), infirmary attendant ADL Assistance: Independent IADL/Homemaking Assistance: Required assistance IADL/Homemaking Assistance Comments: Has assistance with meals on wheels, cleaning, and medication management Driving: Independent Occupational Role: On disability Occupational Role Comments: Previously worked at a [employer] and [employer] Prior Mobility/Functional Transfers Level of [place]: Independent Home Living Type of Home: Apartment [...] Time (min): 60 min Rosario Lopez O.T. ET POST INSPECTOR Maria M Duque M.D. - 02/01/2021 7:21 AM CSTAssociated Order(s): IP CONSULT TO PHYSICAL MEDICINE & REHABILITATION Consult received for Physical Medicine and Rehabilitation Consult Service. I reviewed the electronic health record. I have triaged to therapy only; no bottle capping machine operator consult appears to be necessary at this time. If therapists or referring service feel that a bottle capping machine operator review is necessary, please send a new consult request with only the Physician consult - Physical Medicine and Rehabilitation consult (hospital) item selected. ET POST INSPECTOR documented in this encounter Nursing Notes Sofie [...] by: Sofie Sutton R.N. 02/03/21 5:24 PM PELLET POST INSPECTOR ET POST INSPECTOR Sofie Sutton R.N. - 02/03/2021 5:20 PM [...] by: Sofie Sutton R.N. 02/03/21 5:22 PM PELLET POST INSPECTOR ET POST INSPECTOR Marlene Grover R.N. - 02/03/2021 5:14 AM [...] Goal: Patient discharge needs identified Outcome: Progressing ET POST INSPECTOR Mague Rudolph R.N. - 02/02/2021 5:03 AM CST Shift Goals: Clinical Goals for the Shift: patient will use call light appropriately Identify possible barriers to meeting goals/advancing plan of care: End of Shift Summary: patient met goal ET POST INSPECTOR Valarie Grayson R.N. - 02/01/2021 5:59 PM CST Shift Goals: Clinical Goals for the Shift: Patient will tolerate MRI Identify possible barriers to meeting goals/advancing plan of care: Patient's medical record retrieval specialist End of Shift Summary: Goal not met. MRI scheduled for Tuesday related to device monitoring. Electronically signed by: Valarie Grayson R.N. 02/01/21 5:59 PM PELLET POST INSPECTOR Problem: SKIN/TISSUE INTEGRITY Goal: Skin/Tissue integrity maintained or improved Outcome: Progressing Problem: SAFETY ADULT Goal: Maintain a safe environment Outcome: Progressing Problem: SAFETY ADULT - RISK FOR FALL AND OR FALL INJURY Goal: Patient remains free from fall/fall injury Outcome: Progressing ET POST INSPECTOR documented in this encounter Miscellaneous Notes Hospital [...] after a CTA head/neck in 3 months. ET POST INSPECTOR documented in this encounter Plan of Treatment Scheduled Referrals Name Type Priority Associated Diagnoses [facility] Outpatient Referral Routine Stroke (HCC) Ordered: Health Referral Chronic Pain Syn drome 02/03/2021 Stroke Cerebrovascular Accident Personal History documented as of this encounter Procedures Procedure Name Priority Date/Time Associated Comments Diagnosis MR NECK ANGIOGRAM RAD - Routine 02/03/2021 Results f or WITHOUT AND WITH IV (most inpatients 12:39 PM PELLET POST INSPECTOR this procedure CONTRAST and all are in the outpatients) results section. MR BRAIN WITHOUT AND RAD - Routine 02/03/2021 Result s for WITH IV CONTRAST (most inpatients 12:34 PM PELLET POST INSPECTOR this pr ocedure and all are in the outpatients) results section. DX ABDOMEN SUPINE WITH RAD - Routine 02/02/2021 3:26 R esults for UPRIGHT OR DECUBITUS 2 (most inpatients PM PELLET POST INSPECTOR t his procedure VIEWS and all are in the outpatients) results section. PROTHROMBIN TIME (PT), Routine 02/02/2021 5:20 Re sults for P AM PELLET POST INSPECTOR this procedure are in the results section. LIPID PANEL, S Routine 02/01/2021 5:21 Results fo r AM PELLET POST INSPECTOR this procedure are in the results section. RENAL FUNCTION PANEL, S Routine 02/01/2021 5:21 R esults for AM PELLET POST INSPECTOR this procedure are in the results section. FOLATE, S Routine 02/01/2021 5:21 Results for AM PELLET POST INSPECTOR this procedure are in the results section. VITAMIN B12 ASSAY, S Routine 02/01/2021 5:21 Resu lts for AM PELLET POST INSPECTOR this procedure are in the results section. ECG Routine 01/31/2021 Results for 11:35 PM PELLET POST INSPECTOR this procedure are in the results section. SARS CORONAVIRUS 2, Routine 01/31/2021 Results for RNA, RAPID POC, V 10:32 PM PELLET POST INSPECTOR this proce dure are in the results section. ELECTROLYTE (CHEM 4) Routine 01/31/2021 9:44 Resu lts for PANEL, S/P PM PELLET POST INSPECTOR this procedure are in the results section. ACTIVATED PARTIAL Routine 01/31/2021 9:44 Results for THROMBOPLASTIN TIME PM PELLET POST INSPECTOR this pro cedure (APTT), P are in the results section. PROTHROMBIN TIME (PT), Routine 01/31/2021 9:44 Re sults for P PM PELLET POST INSPECTOR this procedure are in the results section. CBC WITH DIFFERENTIAL, Routine 01/31/2021 9:44 Re sults for B PM PELLET POST INSPECTOR this procedure are in the results section. ALANINE Routine 01/31/2021 9:44 Results for AMINOTRANSFERASE (ALT), PM PELLET POST INSPECTOR this procedure S/P are in the results section. ASPARTATE Routine 01/31/2021 9:44 Results for AMINOTRANSFERASE (AST), PM PELLET POST INSPECTOR this procedure S/P are in the results section. THYROID-STIMULATING Routine 01/31/2021 9:44 Resul ts for HORMONE-SENSITIVE PM PELLET POST INSPECTOR this proce dure (S-TSH) are in the results section. HEMOGLOBIN A1C, B Routine 01/31/2021 9:44 Results for PM PELLET POST INSPECTOR this procedure are in the results section. documented in this encounter Results MR Neck Angiogram without and with IV Contrast (02/03/2021 12:39 PM PELLET POST INSPECTOR) Anatomical Region Laterality Modality Neck, Neuroradiology RST LOS, Neuroradiology ARZ [facility], N/A Magnetic Resonance Neuroradiology FLA [facility] Specimen (Source) Anatomical Collection Method Collection Time Re ceived Time Location / / Volume Laterality 02/03/2021 11:37 AM PELLET POST INSPECTOR Impressions 02/03/2021 1:26 PM PELLET POST INSPECTOR 1. Infarctions in the posterior circulation of [...] technica l limitations. Narrative 02/03/2021 1:26 PM PELLET POST INSPECTOR EXAM: MR BRAIN WITHOUT AND WITH IV [...] and with IV Contrast (02/03/2021 12:34 PM PELLET POST INSPECTOR) Anatomical Region Laterality Modality Head, Brain, Neuroradiology RST LOS, Neuroradiology ADILIA N/A Magnetic Resonance LOS, Neuroradiology FLA [facility] Specimen (Source) Anatomical Collection Method Collection Time Re ceived Time Location / / Volume Laterality 02/03/2021 11:37 AM PELLET POST INSPECTOR Impressions 02/03/2021 1:26 PM PELLET POST INSPECTOR 1. Infarctions in the posterior circulation of [...] technica l limitations. Narrative 02/03/2021 1:26 PM PELLET POST INSPECTOR EXAM: MR BRAIN WITHOUT AND WITH IV [...] or Decubitus 2 Views (02/02/2021 3:26 PM PELLET POST INSPECTOR) Anatomical Region Laterality Modality Abdomen, Abdominal RST LOS, Abdominal ARZ LOS, Right Digital Radiography Abdominal FLA LOS Specimen (Source) Anatomical Collection Method Collection Time Re ceived Time Location / / Volume Laterality 02/02/2021 3:49 PM PELLET POST INSPECTOR Impressions 02/02/2021 3:50 PM PELLET POST INSPECTOR Spinal stimulator device with tip over the T7-8 interspace. Generator pack posterior to the left janett ac crest. Postoperative changes ventral hernia repair. Surgical marylin near the GE junction. Cholecystectomy. Lung bases are clear. Narrative 02/02/2021 3:50 PM PELLET POST INSPECTOR EXAM: ??DX ABDOMEN SUPINE WITH UPRIGHT OR [...] (ABNORMAL) Prothrombin Time (PT) (02/02/2021 5:20 AM PELLET POST INSPECTOR) [facility] Method Time Signature Prothrombin 16.2 (H) 9.4 - 12.5 02/02/2021 DTL Time, P sec 6:12 AM PELLET POST INSPECTOR INR 1.5 0.9 - 1.1 02/02/2021 DTL 6:12 AM PELLET POST INSPECTOR Comment: ----ADDITIONAL INFORMATION---- Standard intensity warfarin therapeutic range: 2.0 to 3.0 ?? High intensity warfarin therapeutic rang e: 2.5 to 3.5 Specimen Anatomical Collection Method Collection Time Receive d Time (Source) Location / / Volume Laterality Blood (Blood, 02/02/2021 5:20 AM 02/03/20 5:48 Venous) PELLET POST INSPECTOR AM PELLET POST INSPECTOR Leonides Kumar M.D. LAB BLOOD ADD-ON Performing Organization Address City/State/ZIP Code Phon e Number [facility] - [address] [place], [place] [address] [facility] [place] [address] [facility] 200 [facility] Renal Function Panel (02/01/2021 5:21 AM PELLET POST INSPECTOR) athologist Signature Potassium, S 4.3 3.6 - 5.2 02/01/2021 DTL mmol/L 6:26 AM PELLET POST INSPECTOR Sodium, S 139 135 - 145 02/01/2021 DTL mmol/L 6:26 AM PELLET POST INSPECTOR Chloride, S 106 98 - 107 02/01/2021 DTL mmol/L 6:26 AM PELLET POST INSPECTOR Bicarbonate, S 25 22 - 29 02/01/2021 DTL mmol/L 6:26 AM PELLET POST INSPECTOR Anion Gap 8 7 - 15 02/01/2021 DTL 6:26 AM PELLET POST INSPECTOR BUN (Blood Urea 14 6 - 21 02/01/2021 DTL Nitrogen), S mg/dL 6:26 AM PELLET POST INSPECTOR Creatinine 0.74 0.59 - 02/01/2021 DTL 1.04 mg/dL 6:26 AM PELLET POST INSPECTOR eGFR-Non >90 >=60 02/01/2021 DTL Black/ mL/min/BSA 6:26 AM PELLET POST INSPECTOR Turkish Comment: ----ADDITIONAL INFORMATION---- Estimated GFR calculated using the 2009 CKD_EPI creatinine equation. eGFR-Black/ >90 >=60 mL/min/BSA 2020 6:26 AM PELLET POST INSPECTOR DTL Comment: ----ADDITIONAL INFORMATION---- Estimated GFR calculated using the 2009 CKD_EPI creatinine equation. Calcium, Total, S 9.2 8.6 - 10.0 mg/dL 02/01/2021 6:26 AM PELLET POST INSPECTOR DTL Glucose, S 96 70 - 140 mg/dL 02/01/2021 6:26 AM PELLET POST INSPECTOR D TL Albumin, S 3.6 3.5 - 5.0 g/dL 02/01/2021 6:26 AM PELLET POST INSPECTOR D TL Phosphorus (Inorganic), S 4.0 2.5 - 4.5 mg/dL 02/02/20 6:26 AM PELLET POST INSPECTOR DTL Specimen Anatomical Collection Method Collection Time Receive d Time (Source) Location / / Volume Laterality Blood (Blood, 02/01/2021 5:21 AM 02/02/20 5:52 Venous) PELLET POST INSPECTOR AM PELLET POST INSPECTOR Gerald England M.D. LAB BLOOD ADD-ON Performing Organization Address City/[facility] Phon e Number [facility] - [address] [place] [address] [address] (ABNORMAL) Vitamin B12 Assay (02/01/2021 5:21 AM PELLET POST INSPECTOR) Analysis Performed At Patho logist Time Signature Vitamin B12 >1400 (H) 180 - 914 02/02/2021 DTL Assay, S ng/L 7:10 AM PELLET POST INSPECTOR Comment: ----ADDITIONAL INFORMATION---- In patients being evaluated [...] (Blood, 02/01/2021 5:21 AM 02/02/20 5:52 Venous) PELLET POST INSPECTOR AM PELLET POST INSPECTOR eGrald England M.D. LAB BLOOD ADD-ON Performing Organization Address City/[facility] Phon e Number [facility] - [address] [place], [place] [address] [place] [id number] Laboratories[address] Folate (02/01/2021 5:21 AM PELLET POST INSPECTOR) P athologist Signature Folate, S 17.9 >=4.0 mcg/L 02/02/2021 7:09 DTL AM PELLET POST INSPECTOR Specimen Anatomical Collection Method Collection Time Receive d Time (Source) Location / / Volume Laterality Blood (Blood, 02/01/2021 5:21 AM 02/02/20 5:52 Venous) PELLET POST INSPECTOR AM PELLET POST INSPECTOR Gerald England M.D. LAB BLOOD ADD-ON Performing Organization Address City/[facility] Phon e Number [facility] - [address] [place], [place] [address] [facility] [place] [address] [facility] [address] [facility] Lipid Panel (02/01/2021 5:21 AM PELLET POST INSPECTOR) athologist Signature Cholesterol, 157 mg/dL 02/01/2021 DTL Total 6:27 AM PELLET POST INSPECTOR Comment: ----REFERENCE VALUE---- Desirable: < 200 Borderline high: 200 - 239 High: > or = 240 Triglycerides 107 mg/dL 02/01/2021 6:27 AM PELLET POST INSPECTOR DTL Comment: ----REFERENCE VALUE---- Normal: <150 Borderline high: 150-199 High: 200-499 Very high: > or =500 Cholesterol, HDL, S 88 >=50 mg/dL 02/01/2021 6:27 AM PELLET POST INSPECTOR DTL Calculated LDL 48 mg/dL 02/01/2021 6:27 AM PELLET POST INSPECTOR DT L Comment: ----REFERENCE VALUE---- Desirable: <100 Above Desirable: 100-129 Borderline high: 130-159 High: 160-189 Very high: > or =190 Cholesterol, Non-HDL, Calculated 69 mg/dL 6:27 AM PELLET POST INSPECTOR DTL Comment: ----REFERENCE VALUE---- Desirable: <130 Above Desirable: 130-159 Borderline high: 160-189 High: 190-219 Very high: > or =220 Specimen Anatomical Collection Method Collection Time Receive d Time (Source) Location / / Volume Laterality Blood (Blood, 02/01/2021 5:21 AM 02/02/20 5:52 Venous) PELLET POST INSPECTOR AM PELLET POST INSPECTOR Gerald England M.D. LAB BLOOD ADD-ON Performing Organization Address City/[facility] Phon e Number [facility] - [address] [place], [place] [address] [facility] [place] [address] [facility] [address] SW ECG 12 Lead (01/31/2021 11:35 PM PELLET POST INSPECTOR) P athologist Signature Ventricular Rate 60 BPM MUSE ECG/Min [place] Interval 170 ms MUSE QRSD Interval 88 ms MUSE QT Interval 434 ms MUSE QTC Interval 434 ms MUSE P [place] 31 degrees MUSE R [place] -16 degrees MUSE T Wave [place] 3 degrees MUSE Specimen Anatomical Collection Method Collection Time Receive d Time (Source) Location / / Volume Laterality 01/31/2021 11:35 02/01/2021 6:10 PM PELLET POST INSPECTOR AM PELLET POST INSPECTOR Impressions MUSE - 02/01/2021 6:10 AM PELLET POST INSPECTOR Normal sinus rhythm Minimal voltage criteria for [...] Rapid POC, V Asymptomatic (01/31/2021 10:32 PM PELLET POST INSPECTOR) [facility] gist Method Time Signature SARS Undetected Undetected 01/31/2021 DTLR Coronavirus-2 10:52 PM PELLET POST INSPECTOR , RNA, Rapid POC, V Comment: Negative for SARS-CoV-2. The Cue COVID-19 test is a molecular shahzad t for SARS-CoV-2, the virus that causes COVID- 19. A Negative result means that the Nulu COV ID-19 test did not detect SARS-CoV-2 virus in your sample. Cue COVID-19 test uses the BitPass nitSpring Metrics System. This test has received Emergency Use Authorization (EUA) by the U.S. Food and Drug Administration (FDA) and is used per man ufacturer instructions. Performance characteristic s were verified by [facility] in a manner consistent with CLIA requirements. Fact sheets for this Emerg ency Use Authorization (EUA) can be found at the following links: Providers: https://Zoom.The Society/documentation/prov iders.pdf Patients: https://Zoom.The Society/documentation/olayinka ents.pdf SARS Coronavirus 2, Source Nasopharynx DEFAULT 01/31/2021 10:52 PM PELLET POST INSPECTOR DTLR Specimen Anatomical Collection Method Collection Time Receive d Time (Source) Location / / Volume Laterality Varies 01/31/2021 10:32 01/31/2021 (Nasopharynx) PM PELLET POST INSPECTOR 10:32 PM PELLET POST INSPECTOR Nan Rios M.D. LAB MICROBIOLOGY - GENERAL O RDERABLES Performing Organization Address City/State/ZIP Code Phon e Number PERFORMING LABS, [place] [address] INTERFACE Ref Interface 200 [facility] DT Performing Labs, [place] [address] Interface 200 [facility] Electrolyte (Chem 4) Panel (01/31/2021 9:44 PM PELLET POST INSPECTOR) P athologist Signature Potassium, P 4.0 3.6 - 5.2 01/31/2021 STMA mmol/L 10:06 PM PELLET POST INSPECTOR Sodium, P 137 135 - 145 01/31/2021 STMA mmol/L 10:06 PM PELLET POST INSPECTOR Chloride, P 104 98 - 107 01/31/2021 STMA mmol/L 10:06 PM PELLET POST INSPECTOR Bicarbonate, P 24 22 - 29 01/31/2021 STMA mmol/L 10:06 PM PELLET POST INSPECTOR Anion Gap, P 9 7 - 15 01/31/2021 STMA 10:06 PM PELLET POST INSPECTOR Specimen Anatomical Collection Method Collection Time Receive d Time (Source) Location / / Volume Laterality Blood (Blood, 01/31/2021 9:44 PM 02/01/20 21 9:56 Venous) PELLET POST INSPECTOR PM PELLET POST INSPECTOR Gerald England M.D. LAB BLOOD ADD-ON Performing Organization Address City/[facility] Phon e Number [facility] - [address] [place], [place] [address] [facility] [place] [address] [facility] [address] (ABNORMAL) Prothrombin Time (PT) (01/31/2021 9:44 PM PELLET POST INSPECTOR) [facility] Method Time Signature Prothrombin 15.5 (H) 9.4 - 12.5 01/31/2021 DTL Time, P sec 10:27 PM PELLET POST INSPECTOR INR 1.4 0.9 - 1.1 01/31/2021 DTL 10:27 PM PELLET POST INSPECTOR Comment: ----ADDITIONAL INFORMATION---- Standard intensity warfarin therapeutic range: 2.0 to 3.0 ?? High intensity warfarin therapeutic rang e: 2.5 to 3.5 Specimen Anatomical Collection Method Collection Time Receive d Time (Source) Location / / Volume Laterality Blood (Blood, 01/31/2021 9:44 PM 02/01/20 Venous) PELLET POST INSPECTOR 10:06 PM PELLET POST INSPECTOR Gerald England M.D. LAB BLOOD ADD-ON Performing Organization Address City/[facility] Phon e Number [facility] - [address] [place] [address] APTT (Activated Partial Thromboplastin Time) (01/31/2021 9:44 PM PELLET POST INSPECTOR) P athologist Signature Activated 35 25 - 37 sec 01/31/2021 DT Partial 10:27 PM PELLET POST INSPECTOR Thrombopl Time, P Specimen Anatomical Collection Method Collection Time Receive d Time (Source) Location / / Volume Laterality Blood (Blood, 01/31/2021 9:44 PM 02/01/20 Venous) PELLET POST INSPECTOR 10:06 PM PELLET POST INSPECTOR Gerald England M.D. LAB BLOOD ADD-ON Performing Organization Address City/[facility] Phon e Number [facility] - [address] (ABNORMAL) Hemoglobin A1c (01/31/2021 9:44 PM PELLET POST INSPECTOR) P athologist Signature Hemoglobin A1c, 6.1 (H) 4.0 - 5.6 01/31/2021 DTL B % 10:18 PM PELLET POST INSPECTOR Comment: Hemoglobin A1c values of 5.7-6.4 percent indicate an increased risk for developing diabetes henrry skinner. In diabetic patients, HbA1c goals should be discussed with healthcare provider. Specimen Anatomical Collection Method Collection Time Receive d Time (Source) Location / / Volume Laterality Blood (Blood, 01/31/2021 9:44 PM 03/06/20 21 Venous) PELLET POST INSPECTOR 10:06 PM PELLET POST INSPECTOR Gerald England M.D. LAB BLOOD ADD-ON Performing Organization Address City/State/ZIP Code Phon e Number [facility] - [address] [place], [place] [address] [facility] [address] [facility] [address] [facility] (ABNORMAL) CBC with Differential, Blood (01/31/2021 9:44 PM PELLET POST INSPECTOR) [facility] Method Time Signature Hemoglobin 11.1 (L) 11.6 - 01/31/2021 DTL 15.0 g/dL 10:12 PM PELLET POST INSPECTOR Hematocrit 34.9 (L) 35.5 - 01/31/2021 DTL 44.9 % 10:12 PM PELLET POST INSPECTOR Erythrocytes 3.84 (L) 3.92 - 01/31/2021 DTL 5.13 10:12 PM PELLET POST INSPECTOR x10(12)/L MCV 90.9 78.2 - 01/31/2021 DTL 97.9 fL 10:12 PM PELLET POST INSPECTOR RBC Distrib Width 14.4 12.2 - 01/31/2021 DTL 16.1 % 10:12 PM PELLET POST INSPECTOR Platelet Count 326 157 - 371 01/31/2021 DTL x10(9)/L 10:12 PM PELLET POST INSPECTOR Leukocytes 6.8 3.4 - 9.6 01/31/2021 DTL x10(9)/L 10:12 PM PELLET POST INSPECTOR Neutrophils 4.91 1.56 - 01/31/2021 DTL 6.45 10:12 PM PELLET POST INSPECTOR x10(9)/L Lymphocytes 1.52 0.95 - 01/31/2021 DTL 3.07 10:12 PM PELLET POST INSPECTOR x10(9)/L Monocytes 0.34 0.26 - 01/31/2021 DTL 0.81 10:12 PM PELLET POST INSPECTOR x10(9)/L Eosinophils 0.03 0.03 - 01/31/2021 DTL 0.48 10:12 PM PELLET POST INSPECTOR x10(9)/L Basophils 0.03 0.01 - 01/31/2021 DTL 0.08 10:12 PM PELLET POST INSPECTOR x10(9)/L Specimen Anatomical Collection Method Collection Time Receive d Time (Source) Location / / Volume Laterality Blood (Blood, 01/31/2021 9:44 PM 02/01/20 21 Venous) PELLET POST INSPECTOR 10:06 PM PELLET POST INSPECTOR Gerald England M.D. LAB BLOOD ADD-ON Performing Organization Address City/State/ZIP Code Phon e Number [facility] - [address] [place], [place] [address] [facility] [place] [address] [facility] [address] [facility] S-TSH (Thyroid-Stimulating Hormone - Sensitive) (01/31/2021 9:44 PM PELLET POST INSPECTOR) P athologist Signature TSH, Sensitive 0.3 0.3 - 4.2 01/31/2021 DTL mIU/L 10:59 PM PELLET POST INSPECTOR Specimen Anatomical Collection Method Collection Time Receive d Time (Source) Location / / Volume Laterality Blood (Blood, 01/31/2021 9:44 PM 02/01/20 21 Venous) PELLET POST INSPECTOR 10:06 PM PELLET POST INSPECTOR Gerald England M.D. LAB BLOOD ADD-ON Performing Organization Address City/State/ZIP Code Phon e Number [facility] - [address] [place], [place] [address] [facility] [place] [address] [place] [address] [address] [facility] AST (Aspartate Aminotransferase) (01/31/2021 9:44 PM PELLET POST INSPECTOR) [facility] Method Time Signature Aspartate 23 8 - 43 01/31/2021 DTL Aminotransferase U/L 10:59 PM PELLET POST INSPECTOR (AST), S Specimen Anatomical Collection Method Collection Time Receive d Time (Source) Location / / Volume Laterality Blood (Blood, 01/31/2021 9:44 PM 02/01/20 21 Venous) PELLET POST INSPECTOR 10:06 PM PELLET POST INSPECTOR Gerald England M.D. LAB BLOOD ADD-ON Performing Organization Address City/State/ZIP Code Phon e Number [facility] - [address] [place], [place] [address] [facility] [place], [place] [id number] [place] [address] First [facility] ALT (Alanine Aminotransferase) (01/31/2021 9:44 PM PELLET POST INSPECTOR) [facility] Method Time Signature Alanine 15 7 - 45 01/31/2021 DTL Aminotransferase U/L 10:59 PM PELLET POST INSPECTOR (ALT), S Specimen Anatomical Collection Method Collection Time Receive d Time (Source) Location / / Volume Laterality Blood (Blood, 01/31/2021 9:44 PM 02/01/20 21 Venous) PELLET POST INSPECTOR 10:06 PM PELLET POST INSPECTOR Gerald England M.D. LAB BLOOD ADD-ON Performing Organization Address City/State/ZIP Code Phon e Number [facility] - [address] [place], [place] [address] [facility] [place] [address] [facility] [address] documented in this encounter Visit Diagnoses Diagnosis Stroke (HCC) Chronic Pain Syndrome Stroke Cerebrovascular Accident Personal History documented in this encounter Admitting Diagnoses Diagnosis Stroke (HCC) documented in this encounter Administered Medications Inactive Administered Medications - up to 3 most recent administrations Medication Order MAR Action Action Date Dose Rate Site acetaminophen tablet 1,000 mg Given 02/03/2021 6:56 AM PELLET POST INSPECTOR 1,000 mg (TYLENOL) 1,000 mg, oral, Every 6 hours PRN, mild pain or score 1-3 of 10, moderate pain or score 4-6 of 10, headaches, Starting on 02/01/21 at 0210 Given 02/02/2021 2:36 PM PELLET POST INSPECTOR 1,000 mg Given 02/02/2021 8:53 AM PELLET POST INSPECTOR 1,000 mg albuterol 90 mcg/actuation inhaler 2 puf f Given 02/03/2021 4:29 AM PELLET POST INSPECTOR 2 puffs 2 puff, inhalation, Every 6 hours PRN, wheezing, shortness of breath, Starting on 02/01/21 at 1115 apixaban tablet 5 mg (ELIQUIS) Given 02/03/2021 9:30 AM PELLET POST INSPECTOR 5 mg 5 mg, oral, 2 times daily, First dose on 02/02/21 at 2100 Given 02/02/2021 8:09 PM PELLET POST INSPECTOR 5 mg aspirin tablet 325 mg Given 02/02/2021 8:11 AM PELLET POST INSPECTOR 325 mg 325 mg, oral, Daily, First dose on 02/01/21 at 1030 Given 02/01/2021 10:54 AM PELLET POST INSPECTOR 325 mg atorvastatin tablet 40 mg (LIPITOR) Given 02/02/2021 8:09 PM PELLET POST INSPECTOR 40 mg 40 mg, oral, Daily at [...] 25 m cg Given 02/03/2021 9:29 AM PELLET POST INSPECTOR 25 mcg 25 mcg, oral, Daily, First dose on 02/01/21 at 0900, cholecalciferol (vitamin D3) orderable was interchanged for cholecalciferol (vitamin D3) tablet/capsule Given 02/02/2021 8:10 AM PELLET POST INSPECTOR 25 mcg Given 02/01/2021 9:11 AM PELLET POST INSPECTOR 25 mcg cyanocobalamin tablet 2,000 mcg (VITAMIN Given 02/03/2021 9: 28 AM PELLET POST INSPECTOR 2,000 mcg B12) 2,000 mcg, oral, Daily, First dose on 02/01/21 at 0900 Given 02/02/2021 8:08 AM PELLET POST INSPECTOR 2,000 mcg Given 02/01/2021 9:11 AM PELLET POST INSPECTOR 2,000 mcg diazePAM tablet 10 mg (VALIUM) Given 02/03/2021 10:51 AM PELLET POST INSPECTOR 10 mg 10 mg, oral, 2 times daily PRN, anxiety, Starting on 02/01/21 at 1016 Given 02/02/2021 10:24 PM PELLET POST INSPECTOR 10 mg Given 02/02/2021 8:53 AM PELLET POST INSPECTOR 10 mg docusate sodium 283 mg/5 mL enema 1 enem a (ENEMEEZ) 1 enema, rectal, 2 times daily PRN, cons tipation, Starting on 01/31/21 at 2125, If no bowel movement within 24 hours of starting bisac odyl FLUoxetine capsule 80 mg (PROzac) Given 02/03/2021 9:28 AM PELLET POST INSPECTOR 80 mg 80 mg, oral, Daily, First dose on 02/01/21 at 0900, FLUoxetine orderable was interchanged for FLUoxetine tablet/capsule Given 02/02/2021 8:10 AM PELLET POST INSPECTOR 80 mg Given 02/01/2021 9:10 AM PELLET POST INSPECTOR 80 mg folic acid tablet 800 mcg Given 02/03/2021 9:29 AM PELLET POST INSPECTOR 800 mcg 800 mcg, oral, Every morning, First dose on Tue02/01/21 at 0900 Given 02/02/2021 8:14 AM PELLET POST INSPECTOR 800 mcg Given 02/01/2021 10:00 AM PELLET POST INSPECTOR 800 mcg furosemide tablet 40 mg (LASIX) Given 02/03/2021 9:29 AM PELLET POST INSPECTOR 40 mg 40 mg, oral, 2 times daily, First dose on Tue02/02/21 at 0900 Given 02/02/2021 6:25 PM PELLET POST INSPECTOR 40 mg Given 02/02/2021 8:10 AM PELLET POST INSPECTOR 40 mg gadobutrol injection 0.01-30 mL (GADAVIS T) Given 02/03/2021 12:35 PM PELLET POST INSPECTOR 8 mL 0.01-30 mL, intravenous, Once in imaging, contrast, Starting on Tue02/03/21 at 1235, For 1 dose, Imaging Protocol Orders, Dose per Radiant Medication Guidelines heparin (porcine) Given 02/02/2021 6:29 AM PELLET POST INSPECTOR 5,000 Units Left Lower Abdomen injection 5,000 Units 5,000 Units, subcutaneous, Every 8 hours scheduled, First dose on Tue02/01/21 at 0600 Given 02/01/2021 9:17 PM PELLET POST INSPECTOR 5,000 Units Right Lower Abdomen Given 02/01/2021 1:56 PM PELLET POST INSPECTOR 5,000 Units Right Lower Abdomen lamoTRIgine tablet 200 mg (LaMICtal) Given 02/03/2021 9:29 AM PELLET POST INSPECTOR 200 mg 200 mg, oral, 2 times daily, First dose (after last modification) on 01/31/21 at 2245 Given 02/02/2021 8:09 PM PELLET POST INSPECTOR 200 mg Given 02/02/2021 8:11 AM PELLET POST INSPECTOR 200 mg lidocaine 5 % 1 patch Medication Applied 01/31/2021 10:44 PM 1 patch Upper Back (LIDODERM) PELLET POST INSPECTOR 1 patch, transdermal, Administer over 12 Hours, Daily, First dose on 01/31/21 at 2200, Remove after 12 hours. lidocaine 5 % ointment 1 application Given 02/02/2021 2:33 A M PELLET POST INSPECTOR 1 application (XYLOCAINE) 1 application, topical, 3 times daily PRN, mild pain or score 1-3 of 10, Starting on Tue02/01/21 at 1114, MAX of 20 g of ointment/day Given 02/01/2021 5:18 PM PELLET POST INSPECTOR 1 application loratadine tablet 10 mg (CLARITIN) Given 02/03/2021 9:30 AM PELLET POST INSPECTOR 10 mg 10 mg, oral, Daily, First dose on Tue02/01/21 at 0900, loratadine 10 mg oral daily was interchanged for cetirizine 5 mg oral twice daily Given 02/02/2021 8:11 AM PELLET POST INSPECTOR 10 mg Given 02/01/2021 9:12 AM PELLET POST INSPECTOR 10 mg magnesium oxide tablet 400 mg (MAG-OX) Given 02/02/2021 8:09 PM PELLET POST INSPECTOR 400 mg 400 mg, oral, Daily at bedtime, First dose on Tue02/01/21 at 2100, magnesium oxide 400 mg daily was interchanged for magnesium gluconate 500 mg daily Given 02/01/2021 9:17 PM PELLET POST INSPECTOR 400 mg meclizine tablet 25 mg (ANTIVERT) Given 02/02/2021 3:01 AM PELLET POST INSPECTOR 25 mg 25 mg, oral, 3 times daily PRN, dizziness, Starting on Tue02/01/21 at 0211 Given 02/01/2021 9:19 AM PELLET POST INSPECTOR 25 mg meclizine tablet 25 mg (ANTIVERT) Given 02/02/2021 8:09 PM PELLET POST INSPECTOR 25 mg 25 mg, oral, 4 times [...] 1 patch Left Shoulder patch (NICODERM CQ) PELLET POST INSPECTOR 1 patch, transdermal, Administer over 24 Hours, Daily, First dose on Tue02/01/21 at 0900 Medication Applied 02/02/2021 8:14 AM PELLET POST INSPECTOR 1 patch Right Arm Medication Applied 02/01/2021 9:13 AM PELLET POST INSPECTOR 1 patch Left Shoulder nicotine 21 mg/24 hr 1 Medication Applied 02/03/2021 2:55 PM 1 patch Left Shoulder patch (NICODERM CQ) PELLET POST INSPECTOR 1 patch, transdermal, Administer over 24 Hours, Daily, First dose on Tue02/03/21 at 1330 ondansetron ODT disintegrating tablet 4 mg Given 02/02/2021 10:2 4 PM PELLET POST INSPECTOR 4 mg (ZOFRAN-ODT) 4 mg, oral, Every 8 hours PRN, nausea, Starting on 01/31/21 at 2228, When splitting ODT at bedside, handle with gloves and a pill splitter to prevent moisture contact. Given 02/02/2021 2:36 PM PELLET POST INSPECTOR 4 mg Given 02/01/2021 1:12 AM PELLET POST INSPECTOR 4 mg oxyCODONE IR tablet 10 mg (ROXICODONE) Given 02/03/2021 5:02 PM PELLET POST INSPECTOR 10 mg 10 mg, oral, Every 6 hours PRN, moderate pain or score 4-6 of 10, Starting on 01/31/21 at 2229 Given 02/03/2021 2:42 AM PELLET POST INSPECTOR 10 mg Given 02/02/2021 8:08 PM PELLET POST INSPECTOR [address] tablet 40 mg (PROTONIX) Given 02/03/2021 4:58 PM PELLET POST INSPECTOR 40 mg 40 mg, oral, 2 times daily before breakfast and dinner, First dose on 02/01/21 at 0700, pantoprazole 40 mg oral twice daily was interchanged for esomeprazole 20 or 40 mg oral twice daily Swallow whole. Do NOT crush, chew, or split tablet. Given 02/03/2021 6:56 AM PELLET POST INSPECTOR 40 mg Given 02/02/2021 6:25 PM PELLET POST INSPECTOR 40 mg pregabalin capsule 150 mg (LYRICA) Given 02/01/2021 9:12 AM PELLET POST INSPECTOR 150 mg 150 mg, oral, Every morning, First dose on 02/01/21 at 0900 pregabalin capsule 300 mg (LYRICA) Given 01/31/2021 11:16 PM PELLET POST INSPECTOR 300 mg 300 mg, oral, Every evening, First dose on 01/31/21 at 2300 pregabalin capsule 300 mg (LYRICA) Given 02/03/2021 9:28 AM PELLET POST INSPECTOR 300 mg 300 mg, oral, Every morning, First dose (after last modification) on 02/02/21 at 0900 Given 02/02/2021 8:10 AM PELLET POST INSPECTOR 300 mg pregabalin capsule 600 mg (LYRICA) Given 02/02/2021 8:09 PM PELLET POST INSPECTOR 600 mg 600 mg, oral, Daily at bedtime, First dose (after last modification) on 02/01/21 at 2100 Given 02/01/2021 9:17 PM PELLET POST INSPECTOR 600 mg promethazine injection 6.25 mg (PHENERGA N) Given 02/01/2021 12:47 PM PELLET POST INSPECTOR 6.25 mg 6.25 mg, intravenous, Once, On 02/01/21 at 1030, For 1 dose QUEtiapine tablet 50 mg (SEROquel) Given 02/03/2021 12:39 AM PELLET POST INSPECTOR 50 mg 50 mg, oral, Bedtime PRN, agitation/sleep, Starting on 02/01/21 at 1310 rOPINIRole tablet 2 mg (REQUIP) Given 02/03/2021 2:42 AM PELLET POST INSPECTOR 2 mg 2 mg, oral, Daily PRN, restless legs, Starting on 01/31/21 at 2233 sennosides-docusate sodium 8.6-50 mg per Given 02/03/2021 9: 27 AM PELLET POST INSPECTOR 2 tablets tablet 2 tablet (SENOKOT-S) 2 [...] 300 mg (ZONEGRAN) Given 02/03/2021 9:28 AM PELLET POST INSPECTOR 300 mg 300 mg, oral, 2 times daily, First dose (after last modification) on 01/31/21 at 2245, Swallow whole. Do NOT crush, chew or open capsule. Given 02/02/2021 8:09 PM PELLET POST INSPECTOR 300 mg Given 02/02/2021 8:53 AM PELLET POST INSPECTOR 300 mg documented in this encounter Active and Recently Administered Medications Times are shown in PELLET POST INSPECTOR. Scheduled Medication Order 02/01/2021 02/02/2021 02/03/2021 apixaban tablet 5 mg (ELIQUIS) 2008 (Given - Pro vider: Marlene Grover R.N.) 0116 (Given - Provider: Karma Cervantes R.N.) 5 [...] R.NBritton) 1 application, topical, 3 times daily [place] N, mild pain or score 1-3 of [...] COVID19 Pending 01/31/2021 01/31/2021 01/31/2021 10:53 PM PELLET POST INSPECTOR Assessment Noted Time PHQ-9 Depression Total Score: 23 02/02/2021 11:[address] documented as of this encounter
--- OUTSIDE RECORDS SUMMARY | 2022-09-09 08:02 | XMS_ITS | Encounter Summary ---
:1965 Author Organization [facility] Address [address] [place] [address] Care Team Providers Name Role Phone Unavailable Primary Care Provider Unavailable Encounter Details Date Type Department Care Team Description 02/11/2021 Ancillary Procedure Department of Radiology [place] in [facility] raúl Quintana 200 [facility] 200 [place] [id number] (Wo rk) Social History Tobacco Use Types [...] you attend mandaen or Patient refused 2021 tenriism services? Do [...] bilateral thalami (series 3 image 36), bilateral PLANOGRAPH OPERATOR regio n (left greater than right, [...] bilateral thalami (series 3 image 36), bilateral PLANOGRAPH OPERATOR regio n (left greater than right, [...] bilateral thalami (series 3 image 36), bilateral PLANOGRAPH OPERATOR regio n (left greater than right, [...] bilateral thalami (series 3 image 36), bilateral PLANOGRAPH OPERATOR regio n (left greater than right, [...] bilateral thalami (series 3 image 36), bilateral PLANOGRAPH OPERATOR regio n (left greater than right, [...] bilateral thalami (series 3 image 36), bilateral PLANOGRAPH OPERATOR regio n (left greater than right, [...]
--- OUTSIDE RECORDS SUMMARY | 2022-09-09 08:02 | XMS_ITS | Encounter Summary ---
:1965 Author Organization [facility] Address [address] [place] [id number] Care Team Providers Name Role Phone Unavailable Primary Care Provider Unavailable Encounter Details Date Type Department Care Team Description 02/11/2021 Ancillary Procedure Department of Radiology [place] in [facility] raúl Quintana 200 [facility] 200 [place] [id number] (Wo rk) Social History Tobacco Use Types [...] you attend methodist or Patient refused 2021 oriental orthodox services? [...] bilateral thalami (series 3 image 36), bilateral SALES COMMUNICATIONS MANAGER 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 bilateral thalami (series 3 image 36), bilateral SALES COMMUNICATIONS MANAGER 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 bilateral thalami (series 3 image 36), bilateral SALES COMMUNICATIONS MANAGER 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 bilateral thalami (series 3 image 36), bilateral SALES COMMUNICATIONS MANAGER 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 bilateral thalami (series 3 image 36), bilateral SALES COMMUNICATIONS MANAGER 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 bilateral thalami (series 3 image 36), bilateral SALES COMMUNICATIONS MANAGER 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
--- OUTSIDE RECORDS SUMMARY | 2022-09-09 08:02 | XMS_ITS | Encounter Summary ---
:1965 Author Organization [facility] Address [address] [place] [address] Care Team Providers Name Role Phone Unavailable Primary Care Provider Unavailable Reason for Visit Reason Comments Pre-visit Intake Encounter Details Date Type Department Care Team Description 01/29/2021 Clinical Communication Department of Robert Diehl e-visit Intake Neurology in [place] Celaya [place], [facility] [place], [place] [address] [place] [address] [place], [place] [phone] (Work) [phone] Social History Tobacco Use Types Packs/Day Years [...]
--- OUTSIDE RECORDS SUMMARY | 2022-09-09 08:03 | XMS_ITS | Encounter Summary ---
:1965 Author Organization [facility] Address [address] [place] [address] Care Team Providers Name Role Phone Unavailable Primary Care Provider Unavailable Reason for Referral Outpatient (Routine) - Closed Specialty Diagnoses / Procedures Referred By Contact Clyde bains To Contact Neurology Robert Diehl M. D. [facility] [address] [place] [address] Referral ID Status Reason Start Date Expiration Date Visits Requ ested Visits Authorized [id number] Closed 09/15/2020 09/15/2021 1 1 Reason for Visit Appointment Request (Routine) - Closed Specialty Diagnoses / Procedures Referred By Contact Clyde bains To Contact Neurology Referral ID Status Reason Start Date Expiration Date Visits Requ ested Visits Authorized [id number] Closed 07/31/2020 07/31/2021 1 1 Encounter Details Date Type Department Care Team Description 09/15/2020 Virtual Visit Department of Robert Diehl Berry An eurysm Nonruptured (HCC) (Primary Dx); Neurology in M.D. Nicotine Dependence ; [place], [place] [address] [facility] Aneurysm Cerebral Unruptured (HCC) [address] [place] [phone] Social History Tobacco Use Types Packs/Day Years [...] you attend restorationist or Patient refused 2021 hoahaoism services? Do [...] via the telephone and not in a glhs-os-fnez manner. Ms. Mosquera is a 55-year-old woman [...] Name Type Priority Associated Diagnoses Order S [facility] Neurology office Outpatient Referral Routine Expe [...] nt right vertebral artery. RADHA, MCA, and plugger worker are patent. Neck MRA: Conventional three-vessel [...] nt right vertebral artery. RADHA, MCA, and plugger worker are patent. Neck MRA: Conventional three-vessel [...]
--- OUTSIDE RECORDS SUMMARY | 2022-09-09 08:03 | XMS_ITS | Encounter Summary ---
:1965 Author Organization [facility] Address [address] [place] [address] Care Team Providers Name Role Phone Unavailable Primary Care Provider Unavailable Reason for Visit Outpatient (Routine) - Closed Specialty Diagnoses / Procedures Referred By Contact Refer red To Contact Otorhinolaryngology Darlin Olmedo M.D . [facility] [address] [place] [phone] Referral ID Status Reason Start Date Expiration Date Visits Requ ested Visits Authorized [id number] Closed 12/18/2019 12/17/2020 1 1 Encounter Details Date Type Department Care Team Description 01/08/2020 Office Visit Department of Darlin Olmedo Mucocele Nasa l Sinus Otorhinolaryngology jimmy Brumfield M.D. (Primary Dx) [address] [place] [phone] Social History Tobacco Use Types [...] 05/17/2022 organizations such as judaism groups, unions, fraVisualase or athletic groups, or school groups? How [...] She will continue saline irrigations and Flonase. FACTURING QUALITY MANAGER Associated attestation - Darlin Olmedo M.D. - 01/16/2020 5:45 PM MANUFACTURING QUALITY MANAGER I saw and evaluated the patient, [...]
--- OUTSIDE RECORDS SUMMARY | 2022-09-09 08:03 | XMS_ITS | Encounter Summary ---
:1965 Author Organization [facility] Address [address] [place] [address] Care Team Providers Name Role Phone Unavailable Primary Care Provider Unavailable Reason for Visit Reason Onset Date Comments Medication Question 01/08/2020 Encounter Details Date Type Department Care Team Description 01/08/2020 Clinical Department of [place], Medication Communication Otorhinolaryngology in Wolfgang [place], [place] Lilian [address] [place] [address] [place] [phone] [place] [address] Social History Tobacco Use Types Packs/Day Years [...] you attend holiness or Patient refused 2021 orthodoxy services? Do [...] not covered. Patient will do regular Flonase NT LIAISON Telephone Encounter - Donna Martines - 01/08/2020 4:21 PM CST [facility] called about the Fluticasone Propionate (Flonase) prescription that was put through today. The insurance will not cover it because at the end of the SIG it says Sensimist. Please call the pharmacy at [phone], or place another order. Thank you, Donna NT LIAISON documented in this encounter Plan of Treatment Not on filedocumented as of this encounter Visit Diagnoses Not on filedocumented in this encounter Additional Health Concerns Assessment Noted Time PHQ-9 Depression Total Score: 5 04/05/2019 8:00 AM CDT documented as of this encounter
--- OUTSIDE RECORDS SUMMARY | 2022-09-09 08:03 | XMS_ITS | Encounter Summary ---
:1965 Author Organization [facility] Address [address] [place] [address] Care Team Providers Name Role Phone Unavailable Primary Care Provider Unavailable Reason for Referral Outpatient (Routine) - Closed Specialty Diagnoses / Procedures Referred By Contact Refer red To Contact Otorhinolaryngology Darlin Olmedo M.D . 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 [address] [phone] Referral ID Status Reason Start Date Expiration Date Visits Requ ested Visits Authorized [id number] Closed 11/29/2019 11/28/2020 1 1 Encounter Details Date Type Department Care Team Description 12/18/2019 Office Visit Department of Darlin Olmedo Mucocele Nasa l Sinus Otorhinolaryngology jimmy Brumfield M.D. (Primary Dx) [address] [place] [phone] Social History Tobacco Use Types Packs/Day Years [...] you attend christianity or Patient refused 2021 nondenominational services? Do [...] we will refer to neurology headache clinic. 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
--- OUTSIDE RECORDS SUMMARY | 2022-09-09 08:03 | XMS_ITS | Encounter Summary ---
:1965 Author Organization [facility] Address [address] [place] [address] Care Team Providers Name Role Phone Unavailable Primary Care Provider Unavailable Encounter Details Date Type Department Care Team Description 09/15/2020 Ancillary Procedure Department of Robert Diehl Aneurysm Radiology jimmy Celaya M.D. Nonruptured (HCC) [place], [place] [address] [facility] [address] [place] [phone] Social History Tobacco Use Types Packs/Day Years [...] you attend yazidism or Patient refused 2021 anglican services? Do [...] nt right vertebral artery. RADHA, MCA, and knowledge manager are patent. Neck MRA: Conventional three-vessel arch [...] nt right vertebral artery. RADHA, MCA, and knowledge manager are patent. Neck MRA: Conventional three-vessel arch [...]
--- OUTSIDE RECORDS SUMMARY | 2022-09-09 08:03 | XMS_ITS | Encounter Summary ---
:1965 Author Organization [facility] Address [address] [place] [address] Care Team Providers Name Role Phone Unavailable Primary Care Provider Unavailable Encounter Details Date Type Department Care Team Description 08/05/2020 Clinical Communication Department of Honorio, Otorhinolaryngology in aCrole Manuel [place], [place] [address] [place], [place] [phone] [facility] [phone] [place] [phone] Social History Tobacco Use Types Packs/Day Years [...] called patient to schedule COVID testing at [facility] prior to appointment. Didn't answer so jessica [...]
--- OUTSIDE RECORDS SUMMARY | 2022-09-09 08:03 | XMS_ITS | Encounter Summary ---
:1965 Author Organization [facility] Address [address] [place] [address] Care Team Providers Name Role Phone Unavailable [...] you attend restoration or Patient refused 2021 catholic services? Do [...] 12/07/2019 12:15 Results for this EXAM PM HANGER OFF procedure are i n the results section. documented in this encounter Results NOSE-Otorhinolaryngology Image Exam (12/07/2019 12:15 PM HANGER OFF) Specimen (Source) Anatomical Collection Method Collection Time Re ceived Time Location / / Volume Laterality 12/07/2019 12:15 PM HANGER OFF Narrative IIMS - 12/07/2019 2:07 PM HANGER OFF This order has been created and auto-finalized [...]
--- OUTSIDE RECORDS SUMMARY | 2022-09-09 08:03 | XMS_ITS | Encounter Summary ---
:1965 Author Organization [facility] Address [address] [place] [address] Care Team Providers Name Role Phone Unavailable Primary Care Provider Unavailable Encounter Details Date Type Department Care Team Description 01/07/2021 Anticoagulation Visit Department of Neurology Zuly Alex in [facility] raúl [place]itton [address] [facility] [address] [place] [phone] Social History Tobacco Use Types Packs/Day Years [...] you attend orthodoxy or Patient refused 2021 caodaism services? Do [...] is 2.28. Discussed with Dr. Ashley Castrejon ([phone]) who advises that the patient take 5 [...] OF PHONE CALL. Test results, symptom assessment. 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 documented in this encounter Results Prothrombin Time (PT) (01/07/2021) P athologist Signature EXT INR 2.28 OTHER (SPECIFY IN NUT THREADER) Specimen (Source) Anatomical Location Collection Method / Collectio n Time Received Time / Laterality Volume Blood (Blood, 01/07/2021 Venous) Narrative This result has an attachment that is no t available. Historical Provider LAB BLOOD ADD-ON Performing Organization Address City/State/ZIP Code Phon e Number OTHER (SPECIFY IN NUT THREADER) OTHER (SPECIFY IN NUT THREADER) N/A documented in this encounter Visit Diagnoses Not on filedocumented in this encounter Additional Health Concerns Assessment Noted Time PHQ-9 Depression Total Score: 5 04/05/2019 8:00 AM CDT documented as of this encounter
--- OUTSIDE RECORDS SUMMARY | 2022-09-09 08:03 | XMS_ITS | Encounter Summary ---
:1965 Author Organization [facility] Address [address] [place] [address] Care Team Providers Name Role Phone Unavailable Primary Care Provider Unavailable Encounter Details Date Type Department Care Team Description 12/08/2019 Documentation Department of Darlin Olmedo, Otorhinolaryngology in .[place], [place] [address] [place] [address] 200 [place] [phone] Social History Tobacco Use Types Packs/Day Years [...] you attend faith or Patient refused 2021 alevism services? 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 Additional doses of oxycodone not sufficient for [...] she is currently having. -Dr. Clemente Medley GER ADOBE documented in this encounter Plan of Treatment Not on filedocumented as of this encounter Visit Diagnoses Not on filedocumented in this encounter Additional Health Concerns Assessment Noted Time PHQ-9 Depression Total Score: 5 04/05/2019 8:00 AM CDT documented as of this encounter
--- OUTSIDE RECORDS SUMMARY | 2022-09-09 08:03 | XMS_ITS | Encounter Summary ---
:1965 Author Organization [facility] Address [address] [place] [address] Care Team Providers Name Role Phone Unavailable Primary Care Provider Unavailable Encounter Details Date Type Department Care Team Description 12/07/2019 Anesthesia Event RST ROMB LUISA OR Leonides Walker, [address] [facility] [place] [phone] [phone] [place] [address] [place] [phone] (Wo rk) Anesthesia Record Procedure [...] andoff to the receiving staff during [facility] we 1. Identified the patient 2. [...] Simin valentine, Jey García, (created via procedure PROPOSAL REVIEW ANALYST, FIRE EQUIPMENT OPERATOR PROPOSAL REVIEW ANALYST, TY A documentation); Mask Ventilation: Easy mask; [...] you attend religious or Patient refused 2021 spiritism services? Do you belong to any clubs or No 05/17/2022 organizations such as religious groups, unions, fraTamar Energy or athletic groups, or school groups? [...] Procedure Summary Date: 12/07/19 Room / Location: [place] [address] ROMB 01 580 / [facility] in [place], [place] Anesthesia Start: 1234 Anesthesia Stop: 1434 Procedures: SINUSOTOMY ENDOSCOPY FRONTAL. (Bilateral Nose) EXTRADURAL COMPUTER NAVIGATION. 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 Responsible Provider: Leonides Walker [...] Promethazine; otherwise, uneventful recovery with outpt dispo. GANG SAWYER Anesthesia Procedure Notes - Gini Garcia APRN, [...] Procedure outcome: successful Airway event: no complications GANG SAWYER Anesthesia Preprocedure Evaluation - Leonides Walker M.D. - 12/07/2019 11:59 AM CST Preprocedure Anesthesia & H&P Assessment Procedure Summary Date/Time: 12/07/19 1119 Procedures: SINUSOTOMY ENDOSCOPY FRONTAL. (Bilateral Nose) EXTRADURAL COMPUTER NAVIGATION. 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 Location: [place] [address] / [facility] in [place], [place] Provider: Dariln Olmedo M.D. Pertinent components of the patient's [...] #11 Patent Foramen Ovale (HCC) Noted on [id number]/ ECHO otherwise normal. I will not pursue [...] with patient /legal guardian or through an wood milling machine hand. The use of blood products not discussed Approval to Proceed: approved for anesthesia GANG SAWYER documented in this encounter Plan of Treatment Not on filedocumented as of this encounter Procedures Procedure Name Priority Date/Time Associated Comments Diagnosis LDA ANE ENDOTRACHEAL Routine 12/07/2019 12:47 Res ults for this AIRWAY PM CANT GANG SAWYER procedure are i n the results section. documented in this encounter Results LDA ANE ENDOTRACHEAL AIRWAY (12/07/2019 12:47 PM CANT GANG SAWYER) Narrative Gini Garcia APRN, CRNA - 2019 12:47 PM CANT GANG SAWYER Gini Garcia APRN, CRNA ? 12/07/2019 12:49 [...] dexamethasone injection (DECADRON) Given 12/07/2019 12:43 PM CANT GANG SAWYER 4 mg As needed, Starting on Tue12/07/19 at 1243, Anesthesia Intra-op ePHEDrine (PF) injection Given 12/07/2019 12:48 PM CANT GANG SAWYER 5 mg intravenous, As needed, Starting on Tue12/07/19 at 1242, Anesthesia Intra-op Given 12/07/2019 12:42 PM CANT GANG SAWYER 25 mg fentaNYL injection 25 mcg (SUBLIMAZE) Given 12/07/2019 2:32 PM CANT GANG SAWYER 25 mcg 25 mcg, intravenous, Every 2 min PRN, For pain 4 or greater (maximum 100 mcg). If max dose of Fentanyl is reached and if pain is greater than 4, discontinue Fentanyl: give Hydromorphone, Starting on Tue12/07/19 at 1145, Pre-Op lactated ringers New Bag 12/07/2019 12:39 PM CANT GANG SAWYER intravenous, Continuous Infusion: Per Instructions PRN, Starting on Tue12/07/19 at 1239, Anesthesia Intra-op lidocaine (PF) (cardiac) injection Given 12/07/2019 12:40 PM CANT GANG SAWYER 100 mg intravenous, As needed, Starting on Tue12/07/19 at 1240, Anesthesia Intra-op ondansetron (PF) injection (ZOFRAN) Given 12/07/2019 1:57 PM CANT GANG SAWYER 4 mg intravenous, As needed, Starting on Tue12/07/19 at 1357, Anesthesia Intra-op phenylephrine injection Given 12/07/2019 12:50 PM CANT GANG SAWYER 100 mcg intravenous, As needed, Starting on Tue12/07/19 at 1246, Anesthesia Intra-op Given 12/07/2019 12:48 PM CANT GANG SAWYER 100 mcg Given 12/07/2019 12:46 PM CANT GANG SAWYER 100 mcg propofol 10 mg/mL infusion Rate/Dose 12/07/2019 75 mcg/kg/min 34.4 m L/hr (DIPRIVAN) Change 12:46 PM CANT GANG SAWYER intravenous, Continuous Infusion: Per Instructions PRN, Starting on Tue12/07/19 at 1241, Anesthesia Intra-op New Bag 12/07/2019 12:41 PM CANT GANG SAWYER 250 mcg/kg/min 115 mL/hr propofol injection (DIPRIVAN) Given 12/07/2019 12:42 PM CANT GANG SAWYER 100 mg intravenous, As needed, Starting on Tue12/07/19 at 1242, Anesthesia Intra-op remifentanil 20 mcg/mL in Rate/Dose 12/07/2019 1:43 0.1 mcg/kg/min 2 2.9 mL/hr NaCl 0.9% 100 mL infusion Change PM CANT GANG SAWYER (ULTIVA) Continuous Infusion: Per Instructions PRN, Starting on Tue12/07/19 at 1246, Anesthesia Intra-op Rate/Dose Change 12/07/2019 12:53 PM CANT GANG SAWYER 0.2 mcg/kg/min 45.8 mL/hr New Bag 12/07/2019 12:46 PM CANT GANG SAWYER 0.25 mcg/kg/min 57.3 mL/hr succinylcholine (PF) injection (ANECTINE ) Given 12/07/2019 12:42 PM CANT GANG SAWYER 10 mg intravenous, As needed, Starting on Tue12/07/19 at 1242, Anesthesia Intra-op vancomycin in NaCl 0.9% IVPB 1,250 mg Given 12/07/2019 12:51 PM CANT GANG SAWYER 1.25 g 1,250 mg (rounded from 1,146 [...]
--- OUTSIDE RECORDS SUMMARY | 2022-09-09 08:03 | XMS_ITS | Encounter Summary ---
:1965 Author Organization [facility] Address [address] [place] [address] Care Team Providers Name Role Phone Unavailable Primary Care Provider Unavailable Reason for Referral MRI/CAT/PET Scan (Routine) - Closed Specialty Diagnoses / Procedures Referred By Contact Refer red To Contact Radiology Diagnoses Ataxia Robert Fowler M.D. [facility] Procedures CT Head Neck Angiogram with IV Contrast 200 [place] [address] Referral ID Status Reason Start Date Expiration Date Visits Requ ested Visits Authorized [id number] Closed 12/31/2020 12/31/2021 1 1 [facility] Outpatient (Routine) - Closed Specialty Diagnoses / Procedures Referred By Contact Refer red To Contact Video Medicine Diagnoses Stroke Cerebrovascular Accident Personal History Robert Fowler [facility] Margot Quintana [address] [place] [address] Referral ID Status Reason Start Date Expiration Date Visits Requ ested Visits Authorized [id number] Closed 12/30/2020 12/30/2021 1 1 [facility] MRI/CAT/PET Scan (Routine) - Closed Specialty Diagnoses / Procedures Referred By Contact Refer red To Contact Radiology Diagnoses Ataxia Robert Fowler M.D. [facility] Procedures CT Head Neck Angiogram with IV Contrast 200 [place] [address] Referral ID Status Reason Start Date Expiration Date Visits Requ ested Visits Authorized [id number] Closed 12/30/2020 12/30/2021 1 1 [facility] MRI/CAT/PET Scan (Routine) - Closed Specialty Diagnoses / Procedures Referred By Contact Refer red To Contact Radiology Diagnoses Stroke Cerebrovascular Accident Personal History Robert Fowler M.D. [facility] Procedures CT Head without IV Contrast [address] [place] [address] Referral ID Status Reason Start Date Expiration Date Visits Requ ested Visits Authorized [id number] Closed 12/30/2020 12/30/2021 1 1 [facility] Reason for Visit Reason Comments Symptom Assessment Encounter Details Date Type Department Care Team Description 12/22/2020 Clinical Communication Department of Robert Fowler mptom Assessment Neurology jimmy Celaya M.D. [place], [address] [place], [place] [address] [facility] [address] [place], [place] [phone] (Work) [phone] Social History Tobacco Use Types Packs/Day Years [...] Robert Fowler M.D. - 12/31/2020 5:17 PM [facility] Addended by: ROBERT FOWLER on: 12/31/2020 05:17 PM Modules accepted: Orders [facility] Addendum Note - Robert Fowler M.D. - 12/30/2020 8:34 AM [facility] Addended by: ROBERT FOWLER on: 12/30/2020 08:34 AM Modules accepted: Orders [facility] Telephone Encounter - Zuly Alex R.N. - 12/29/2020 4:48 PM CST The patient telephones back today. She did present to the local ED in [place] for evaluation of her vertigo. She shares [...] needs to get in contact with her [facility] neurologist. The patient reports that at her [...] [address] someone drive her to [facility] as well. She agrees to call 911 for recurrent episodes. RECOMMENDED LEVEL OF CARE. The patient/caller is willing and able to follow the nurse's recommendation. RESPONSE TO ADVICE GIVEN. Patient/caller able to teach back. REFERENCES UTILIZED. Nursing clinical judgment utilized. Other interventions or information: Provider advice. TYPE OF PHONE CALL. Symptom assessment. [facility] Telephone Encounter - Robert Fowler M.D. - [...] by: Robert Fowler M.D. 12/23/20 8:21 AM [facility] Telephone Encounter - Zuly Alex R.N. - 12/22/2020 5:25 PM CST 5:17 pm. Tried calling to assure she could reach her son to take her to the ED. No answer. [facility] Telephone Encounter - Zuly Alex R.N. - [...] her to the nearest emergency room or [id number]. She expressed concerns about going to the [...] the nearest ED which would be in [place]. He did not answer. I offered to [...] advice. TYPE OF PHONE CALL. Symptom assessment. [facility] Telephone Encounter - Robert Fowler M.D. - 12/22/2020 3:29 PM CST Please call patient in triage whether she needs to be seen in the local emergency department for concern of acute stroke? [facility] documented in this encounter Plan of Treatment Scheduled Referrals Name Type Priority Associated Diagnoses Order S chedule Video anyplace Outpatient Referral Routine Stroke Cerebrovascu lar Expected: visit Accident Personal 12/30/2020 , History Expires: 12/30/2023 documented as of this encounter Results CT Head Neck Angiogram with IV Contrast (01/30/2021 3:24 PM [facility]) Anatomical Region Laterality Modality Head and Neck, Neuroradiology RST LOS, N/A C omputed Tomography, Computed Neuroradiology ARZ LOS, Neuroradiology T omography FLA LOS Specimen (Source) Anatomical Collection Method Collection Time Re ceived Time Location / / Volume Laterality 01/30/2021 2:25 PM [facility] Impressions 01/30/2021 3:18 PM [facility] 1. 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 Slightly decreased high-grade stenosis a t the V3/4 junction with increased flow in the distal V4 segment. 2. Evolving, now chronic right cerebella r infarct. 3. 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 Narrative 01/30/2021 3:18 PM [facility] EXAM: CT HEAD NECK ANGIOGRAM WITH IV [...] normal caliber bilater al MCAs, ACAs and barn operator. Patent anterior and right posterior communicating arteri [...] normal caliber bilater al MCAs, ACAs and barn operator. Patent anterior and right posterior communicating arteri [...] Angiogram with IV Contrast (12/31/2020 3:34 PM [facility]) Anatomical Region Laterality Modality Head and Neck, Neuroradiology RST LOS, N/A C omputed Tomography, Computed Neuroradiology ARZ LOS, Neuroradiology T omography FLA [facility] Specimen (Source) Anatomical Collection Method Collection Time Re ceived Time Location / / Volume Laterality 12/31/2020 3:49 PM [facility] Impressions 12/31/2020 4:54 PM [facility] 1. Evolving right cerebellar infarct with decreased [...] oid ICA aneurysms. Narrative 12/31/2020 4:54 PM [facility] EXAM: CT HEAD WITHOUT IV CONTRAST, CT [...] Findings discussed with ordering Dr. Fazal ching ([id number]) at 4:54 PM on 12/31/2020. Procedure Note [...] Findings discussed with ordering physici anDr. Fowler ([id number]) at 4:54 PM on 12/31/2020. IMPRESSION: 1. [...] Head without IV Contrast (12/31/2020 3:34 PM [facility]) Anatomical Region Laterality Modality Head, Neuroradiology RST LOS, N/A Computed T omography, Computed Neuroradiology ARZ LOS, Neuroradiology T omography FLA LOS Specimen (Source) Anatomical Collection Method Collection Time Re ceived Time Location / / Volume Laterality 12/31/2020 3:49 PM [facility] Impressions 12/31/2020 4:54 PM [facility] 1. Evolving right cerebellar infarct with decreased [...] oid ICA aneurysms. Narrative 12/31/2020 4:54 PM [facility] EXAM: CT HEAD WITHOUT IV CONTRAST, CT [...] discussed with ordering physici Dr. Fazal abbasi ([id number]) at 4:54 PM on 12/31/2020. Procedure Note [...] Findings discussed with ordering Dr. Fazal ching ([id number]) at 4:54 PM on 12/31/2020. IMPRESSION: 1. [...]
--- OUTSIDE RECORDS SUMMARY | 2022-09-09 08:03 | XMS_ITS | Encounter Summary ---
:1965 Author Organization [facility] Address [address] [place] [address] Care Team Providers Name Role Phone Unavailable [...] you attend confucianist or Patient refused 2021 christian services? Do [...] 12/18/2019 1:57 Results for this EXAM PM HAND STAMPER procedure are i n the results section. documented in this encounter Results NOSE-Otorhinolaryngology Image Exam (12/18/2019 1:57 PM HAND STAMPER) Specimen (Source) Anatomical Collection Method Collection Time Re ceived Time Location / / Volume Laterality 12/18/2019 1:57 PM HAND STAMPER Narrative [facility] - 12/18/2019 1:57 PM HAND STAMPER This order has been created and auto-finalized [...]
--- OUTSIDE RECORDS SUMMARY | 2022-09-09 08:03 | XMS_ITS | Encounter Summary ---
:1965 Author Organization [facility] Address [address] [place] [address] Care Team Providers Name Role Phone Unavailable Primary Care Provider Unavailable Reason for Visit Reason Comments Follow-up [facility] Patient Encounter Details Date Type Department Care Team Description 12/29/2020 Clinical [facility] Neurology jimmy Celaya M.D. Patient) [place], Formerly named [facility] [address] [place], [place] [address] [place] [address] [place], [place] [phone] [address] (Work) [phone] Social History Tobacco Use Types Packs/Day Years [...] attend roman catholic or Patient refused 2021 gnosticism services? Do [...] her know PCP needs to prescribe meclizine. RACT DRIVER Telephone Encounter - Allyssa Amaya - 12/29/2020 [...] ambulance for; one of which lasted over kks-ely-n-half days. She is having headaches, etc. 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
--- OUTSIDE RECORDS SUMMARY | 2022-09-09 08:03 | XMS_ITS | Encounter Summary ---
:1965 Author Organization [facility] Address [address] [place] [address] Care Team Providers Name Role Phone Unavailable Primary Care Provider Unavailable Reason for Visit Reason Comments Michel Encounter Details Date Type Department Care Team Description 09/11/2020 Clinical Communication Department of Robert Diehl W8B/Scharf Neurology in [place], [place] 200 [facility] 200 [place] [address] [phone] Social History Tobacco Use Types Packs/Day Years [...] you attend congregation or Patient refused 2021 temple services? Do [...]
--- OUTSIDE RECORDS SUMMARY | 2022-09-09 08:03 | XMS_ITS | Encounter Summary ---
:1965 Author Organization [facility] Address [address] [place] [address] Care Team Providers Name Role Phone Unavailable Primary Care Provider Unavailable Reason for Visit Reason Comments Initiate warfarin anticoagulation. Encounter Details Date Type Department Care Team Description 01/01/2021 Clinical Communication Department of Renny Mahoney warfarin Neurology in [place] anticoagulation. [address] [place] [address] [place], [place] [phone] [phone] (Work) [phone] Social History Tobacco Use Types Packs/Day Years [...] you attend yarsani or Patient refused 2021 moravian services? Do [...] PM CST RADHA Thompson, calls in from [facility] with INR results = 3.9. Please call her back at [phone] GER ASSET MANAGEMENT Telephone Encounter - Renny Mahoney R.N. - 01/05/2021 1:56 PM CST Mackenzie talked to her, she needs to go to the lab today. GER ASSET MANAGEMENT Telephone Encounter - Allyssa Amaya - 01/05/2021 11:14 AM CST Patient calls in regarding this. She is wanting this set up now so a nurse can come into her home and do this. She I believed mentions that a nurse comes into her home now. She would like a call to discuss. GER ASSET MANAGEMENT Telephone Encounter - Robert Diehl M.D. - 01/01/2021 4:46 PM CST Absolutely and thank you very much for coordinating this GER ASSET MANAGEMENT Addendum Note - Renny Mahoney R.N. - 01/01/2021 1:03 PM MANAGER ASSET MANAGEMENT Addended by: RENNY MAHONEY on: 01/01/2021 01:03 PM Modules accepted: Orders GER ASSET MANAGEMENT Telephone Encounter - Renny Mahoney R.N. - 01/01/2021 12:45 PM CST I spoke to the patient by telephone today to discuss reinitiating warfarin. The patient referred by Dr. Argenis Diehl ([phone]). The patient's target INR is 2.0-3.0. 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 The anticipated duration of warfarin is validation scientist. As per Dr. Diehl, the patient is to be instructed to discontinue the 325 mg aspirin once the target INR is reached. The patient shares that she is well aware of the risks/benefits and process of taking warfarin with regular INR monitoring. She declined the need for additional education by phone regarding anticoagulation. She would like to have her INRs drawn at [facility] with results faxed to us [facility]. I spoke with her local primary care physician nurse about this as well. Once Dr. Diehl obtains imaging in about 3 months, we may consider transitioning her anticoagulation care to her local [facility]. The patient will take 5 mg warfarin nightly starting tonight 01/01/21, then have an INR drawn 01/05/21 at [facility] with results faxed to us. A prescription for warfarin 5 mg #30, take as directed, may refill X 1 was eprescribed to [facility]. The patient reported an adequate understanding of her plan of care and expressed agreement with thisplan. RECOMMENDED LEVEL OF CARE. The patient/caller is willing and able to follow the nurse's recommendation. RESPONSE TO ADVICE GIVEN. Patient/caller able to teach back. REFERENCES UTILIZED. Nursing clinical judgment utilized. Other interventions or information: Provider advice. TYPE OF PHONE CALL. Medical information, care coordination. . GER ASSET MANAGEMENT Addendum Note - Renny Mahoney R.N. - 01/01/2021 9:43 AM MANAGER ASSET MANAGEMENT Addended by: RENNY MAHONEY on: 01/01/2021 09:43 AM Modules accepted: Orders GER ASSET MANAGEMENT Telephone Encounter - Renny Mahoney R.N. - 01/01/2021 9:32 AM CST I have spoken with the pharmacist at [facility] in [place]. He notes that in 2018 when thepatient previously was treated with warfarin, she was taking 5 mg nightly for a period of time. Eventually some nights she was taking 7.5 mg nightly. The pharmacist reviewed potential medication interactions with the patient's current medication list. No serious interactions anticipated. As per Dr. Yeboah ([phone]), we will initiate 5 mg nightly. She will continue aspirin until therapeutic INR is reached. GER ASSET MANAGEMENT Telephone Encounter - Renny Mahoney R.N. - 01/01/2021 8:47 AM CST The patient has been experiencing episodes of vertigo, gait instability, with a fall, she was seen in the ED of [facility] on 12/22/20. Head CT was performed and sent to [facility] for Dr. Diehl's review. He [...] the patient's primary care team at the [facility]. I have discussed this with the patient who reports an ad equate understanding and agreement with this plan. RECOMMENDED LEVEL OF CARE. The patient/caller is willing and able to follow the nurse's recommendation. RESPONSE TO ADVICE GIVEN. Patient/caller able to teach back. REFERENCES UTILIZED. Nursing clinical judgment utilized. Other interventions or information: Provider advice. TYPE OF PHONE CALL. Care coordination. GER ASSET MANAGEMENT Telephone Encounter - Renny Mahoney R.N. - 01/01/2021 8:46 AM CST ----- Message from Robert Diehl M.D. sent at 12/31/2020 5:17 PM MANAGER ASSET MANAGEMENT ----- I called and discussed the results [...] by: Robert Diehl M.D. 12/31/20 5:16 PM MANAGER ASSET MANAGEMENT Stroke Cerebrovascular Accident Personal History Plan: CT Head without IV Contrast, CT Head without IV Contrast Ataxia Plan: CT Head Neck Angiogram with IV Contrast, CT Head Neck Angiogram with IV Contrast GER ASSET MANAGEMENT documented in this encounter Plan of Treatment Scheduled Orders Name Type Priority Associated Diagnoses Order S chedule Prothrombin Time (PT) Lab Routine Long-Term Anticoagu lant 50 Occurrences starting Treatment 01/01/2021 unti l 01/01/2024 documented as of this encounter Visit Diagnoses Diagnosis Mathematician Research (Current) Anticoagulant Treatm ent - Primary documented in this encounter Additional Health Concerns Assessment Noted Time PHQ-9 Depression Total Score: 5 04/05/2019 8:00 AM CDT documented as of this encounter
--- OUTSIDE RECORDS SUMMARY | 2022-09-09 08:03 | XMS_ITS | Encounter Summary ---
:1965 Author Organization [facility] Address [address] [place] [address] Care Team Providers Name Role Phone Unavailable [...] you attend zoroastrianism or Patient refused 2021 oriental orthodox services? [...] 01/08/2020 3:15 Results for this EXAM PM EDUCATIONAL TECHNOLOGIST procedure are i n the results section. documented in this encounter Results NOSE-Otorhinolaryngology Image Exam (01/08/2020 3:15 PM EDUCATIONAL TECHNOLOGIST) Specimen (Source) Anatomical Collection Method Collection Time Re ceived Time Location / / Volume Laterality 01/08/2020 3:11 PM EDUCATIONAL TECHNOLOGIST Narrative [facility] - 01/08/2020 3:29 PM EDUCATIONAL TECHNOLOGIST This order has been created and auto-finalized [...]
--- OUTSIDE RECORDS SUMMARY | 2022-09-09 08:03 | XMS_ITS | Encounter Summary ---
:1965 Author Organization [facility] Address [address] [place] [address] Care Team Providers Name Role Phone Unavailable Primary Care Provider Unavailable Encounter Details Date Type Department Care Team Description 01/12/2021 Anticoagulation Visit Department of Neurology Zuly Alex in [facility] raúl [place] [address] [facility] [address] [place] [phone] Social History Tobacco Use Types Packs/Day Years [...] you attend baptist or Patient refused 2021 samaritan services? Do [...] Target INR 2.0-3.[address] Argenis Diehl ([phone]). The patient was scheduled for an INR recheck on 01/09/21, however did not have an INR draw until late that afternoon. The results did not become available until after clinic hours. Patient's INR on 01/09/21 was 2.41. Discussed with Dr. Argenis Diehl ([phone]) who advises that the patient follow a [...] PHONE CALL. Test results, symptom assessment. ER ROOM WORKER documented in this encounter Plan of Treatment Not on filedocumented as of this encounter Procedures Procedure Name Priority Date/Time Associated Diagnosis Comme nts PROTHROMBIN TIME (PT), Routine 01/09/2021 Resul ts for this P procedure are i n the results section . documented in this encounter Results Prothrombin Time (PT) (01/09/2021) P athologist Signature EXT INR 2.40 OTHER (SPECIFY IN ELECTRIC METER REPAIRER APPRENTICE) Specimen (Source) Anatomical Location Collection Method / Collectio n Time Received Time / Laterality Volume Blood (Blood, 01/09/2021 Venous) Narrative This result has an attachment that is no t available. Historical Provider LAB BLOOD ADD-ON Performing Organization Address City/State/ZIP Code Phon e Number OTHER (SPECIFY IN ELECTRIC METER REPAIRER APPRENTICE) OTHER (SPECIFY IN ELECTRIC METER REPAIRER APPRENTICE) N/A documented in this encounter Visit Diagnoses Not on filedocumented in this encounter Additional Health Concerns Assessment Noted Time PHQ-9 Depression Total Score: 5 04/05/2019 8:00 AM CDT documented as of this encounter
--- OUTSIDE RECORDS SUMMARY | 2022-09-09 08:03 | XMS_ITS | Encounter Summary ---
:1965 Author Organization [facility] Address [address] [place] [address] Care Team Providers Name Role Phone Unavailable Primary Care Provider Unavailable Encounter Details Date Type Department Care Team Description 08/06/2020 Clinical Communication Department of Honorio, Otorhinolaryngology in [place], [place] [address] [place] [address] [facility] [phone] [place] [phone] Social History Tobacco Use Types Packs/Day Years [...] you attend zoroastrian or Patient refused 2021 jew services? Do [...] that she had them done at [facility]. I called the facility and [...] she had a CT Scan today in [place]. If her doctor there feels she needs [...]
--- OUTSIDE RECORDS SUMMARY | 2022-09-09 08:03 | XMS_ITS | Encounter Summary ---
:1965 Author Organization [facility] Address [address] [place] [address] Care Team Providers Name Role Phone Unavailable Primary Care Provider Unavailable Reason for Visit Reason Comments Michel Encounter Details Date Type Department Care Team Description 09/04/2020 Clinical Communication Department of Robert Diehl W8B/Scharf Neurology in [place], [place] [address] [place] [address] 200 [place] [phone] [phone] Social History Tobacco Use Types Packs/Day Years [...] you attend methodist or Patient refused 2021 restorationist services? Do [...]
--- OUTSIDE RECORDS SUMMARY | 2022-09-09 08:03 | XMS_ITS | Encounter Summary ---
:1965 Author Organization [facility] Address [address] [place] [address] Care Team Providers Name Role Phone Unavailable Primary Care Provider Unavailable Encounter Details Date Type Department Care Team Description 01/20/2021 Clinical Communication Department of Elvira Villalta, Neurology in [place], [place] [address] [place] [address] [address] [place] [phone] Social History Tobacco Use Types Packs/Day Years [...] you attend spiritism or Patient refused 2021 taoist services? Do [...]
--- OUTSIDE RECORDS SUMMARY | 2022-09-09 08:03 | XMS_ITS | Encounter Summary ---
:1965 Author Organization [facility] Address [address] [place] [address] Care Team Providers Name Role Phone Unavailable Primary Care Provider Unavailable Encounter Details Date Type Department Care Team Description 12/31/2020 Orders Only Department of Robert Diehl Stroke Cereb rovascular Accident Personal History (Primary Dx); Neurology in [place]. Thrombosis Arterial (HCC) [place], [place] 200 [facility] 200 [place] [address] [phone] Social History Tobacco Use Types Packs/Day Years [...] you attend anabaptist or Patient refused 2021 congregation services? Do [...]
--- OUTSIDE RECORDS SUMMARY | 2022-09-09 08:03 | XMS_ITS | Encounter Summary ---
:1965 Author Organization [facility] Address [address] [place] [address] Care Team Providers Name Role Phone Unavailable Primary Care Provider Unavailable Encounter Details Date Type Department Care Team Description 01/07/2020 Diagnostic Division of Pulmonary Akhil Diehl M.D. [facility] in [place], [facility] [place] [address] [place], [place] 200 [facility] [address] [place] [address] [phone] Social History Tobacco Use Types Packs/Day Years [...] you attend religion or Patient refused 2021 episcopal services? Do [...] Organization Address City/State/ZIP Code Phon e Number [facility] documented in this encounter Visit Diagnoses Diagnosis Fatigue documented in this encounter Additional Health Concerns Assessment Noted Time PHQ-9 Depression Total Score: 5 04/05/2019 8:00 AM CDT documented as of this encounter
--- OUTSIDE RECORDS SUMMARY | 2022-09-09 08:03 | XMS_ITS | Encounter Summary ---
:1965 Author Organization [facility] Address 200 [place] [address] Care Team Providers Name Role Phone Unavailable Primary Care Provider Unavailable Reason for Referral MRI/CAT/PET Scan (Routine) - Closed Specialty Diagnoses / Procedures Referred By Contact Refer red To Contact Radiology Diagnoses Robert Akhtar M.D. [facility] Procedures CT Head Neck Angiogram with IV Contrast 200 [place] [address] Referral ID Status Reason Start Date Expiration Date Visits Requ ested Visits Authorized [id number] Closed 12/30/2020 12/30/2021 1 1 RATORY MANAGER MRI/CAT/PET Scan (Routine) - Closed Specialty Diagnoses / Procedures Referred By Contact Refer red To Contact Radiology Diagnoses Stroke Cerebrovascular Accident Personal History Robert Diehl M.D. [facility] Procedures CT Head without IV Contrast [address] [place] [address] Referral ID Status Reason Start Date Expiration Date Visits Requ ested Visits Authorized [id number] Closed 12/30/2020 12/30/2021 1 1 RATORY MANAGER Reason for Visit MRI/CAT/PET Scan (Routine) - Closed Specialty Diagnoses / Procedures Referred By Contact Refer red To Contact Radiology Diagnoses Ataxia Robert Diehl M.D. [facility] Procedures CT Head Neck Angiogram with IV Contrast [address] [place] [address] Referral ID Status Reason Start Date Expiration Date Visits Requ ested Visits Authorized [id number] Closed 12/30/2020 12/30/2021 1 1 Encounter Details Date Type Department Care Team Description 12/31/2020 Hospital Encounter Department of Robert Diehl Stroke Cerebrovascular Accident Personal History; Radiology, Severiano Celaya M.D. [facility], in [address] [place] [phone] [place] [address] [place], [place] (Work) [phone] Social History Tobacco Use Types Packs/Day Years [...] attend oriental orthodox or Patient refused 2021 anabaptist services? Do [...] Robert Diehl M.D. - 12/31/2020 5:17 PM LABORATORY MANAGER I called and discussed the results with [...] by: Robert Diehl M.D. 12/31/20 5:16 PM LABORATORY MANAGER Stroke Cerebrovascular Accident Personal History Plan: CT Head without IV Contrast, CT Head without IV Contrast Ataxia Plan: CT Head Neck Angiogram with IV Contrast, CT Head Neck Angiogram with IV Contrast RATORY MANAGER documented in this encounter Plan of Treatment Not on filedocumented as of this encounter Procedures Procedure Name Priority Date/Time Associated Diagnosis Comme nts CT HEAD WITHOUT RAD - Routine 12/31/2020 3:34 Stroke Results for IV CONTRAST (most inpatients PM LABORATORY MANAGER Cerebrovascular this pro cedure and all Accident Personal are in the outpatients) History results section. CT HEAD NECK RAD - Routine 12/31/2020 3:34 Ataxia Results for ANGIOGRAM WITH (most inpatients PM LABORATORY MANAGER this proc edure IV CONTRAST and all are in the outpatients) results section. documented in this encounter Results CT Head Neck Angiogram with IV Contrast (12/31/2020 3:34 PM LABORATORY MANAGER) Anatomical Region Laterality Modality Head and Neck, Neuroradiology RST LOS, N/A C omputed Tomography, Computed Neuroradiology ARZ LOS, Neuroradiology T omography FLA [facility] Specimen (Source) Anatomical Collection Method Collection Time Re ceived Time Location / / Volume Laterality 12/31/2020 3:49 PM LABORATORY MANAGER Impressions 12/31/2020 4:54 PM LABORATORY MANAGER 1. Evolving right cerebellar infarct with [...] oid ICA aneurysms. Narrative 12/31/2020 4:54 PM LABORATORY MANAGER EXAM: CT HEAD WITHOUT IV CONTRAST, [...] discussed with ordering physici Dr. Fazal abbasi ([id number]) at 4:54 PM on 12/31/2020. Procedure Note [...] discussed with ordering physici Dr. Fazal abbasi ([id number]) at 4:54 PM on 12/31/2020. IMPRESSION: 1. [...] Head without IV Contrast (12/31/2020 3:34 PM LABORATORY MANAGER) Anatomical Region Laterality Modality Head, Neuroradiology RST LOS, N/A Computed T omography, Computed Neuroradiology ARZ LOS, Neuroradiology T omography FLA LOS Specimen (Source) Anatomical Collection Method Collection Time Re ceived Time Location / / Volume Laterality 12/31/2020 3:49 PM LABORATORY MANAGER Impressions 12/31/2020 4:54 PM LABORATORY MANAGER 1. Evolving right cerebellar infarct with [...] oid ICA aneurysms. Narrative 12/31/2020 4:54 PM LABORATORY MANAGER EXAM: CT HEAD WITHOUT IV CONTRAST, [...] discussed with ordering physici Dr. Fazal abbasi ([id number]) at 4:54 PM on 12/31/2020. Procedure Note [...] Findings discussed with ordering physici anDr. Diehl ([id number]) at 4:54 PM on 12/31/2020. IMPRESSION: 1. [...] mg iodine/mL solution Given 12/31/2020 3:34 PM LABORATORY MANAGER 1 00 mL 1-200 mL (OMNIPAQUE) 1-200 mL, intravenous, Once in imaging, contrast, Starting on Tue12/31/20 at 1411, For 1 dose, Imaging Protocol Orders, Dose per Radiant Medication Guidelines sodium chloride (PF) 0.9 % injection 1-1 00 mL Given 12/31/2020 3:34 PM LABORATORY MANAGER 35 mL 1-100 mL, intravenous, Once, On Tue12/31/20 at 1415, For 1 dose, Imaging Protocol Orders documented in this encounter Additional Health Concerns Assessment Noted Time PHQ-9 Depression Total Score: 5 04/05/2019 8:00 AM CDT documented as of this encounter
--- OUTSIDE RECORDS SUMMARY | 2022-09-09 08:03 | XMS_ITS | Encounter Summary ---
:1965 Author Organization [facility] Address [address] [place] [address] Care Team Providers Name Role Phone Unavailable Primary Care Provider Unavailable Encounter Details Date Type Department Care Team Description 01/16/2021 Anticoagulation Visit Department of Elvira Villalta [facility] ([facility]x); Neurology in [facility] Anticoagulant Treatment [address] [place] [phone] [place], [place] [phone] (Work) [phone] Social History Tobacco Use Types Packs/Day Years [...] you attend caodaism or Patient refused 2021 adventism services? Do [...] Target INR 2.0-3.[address] Argenis Diehl ([id number]). The patient was scheduled for an INR recheck on 01/19/21 but we received a message that she had it drawn today, 01/16/21, by [facility] Nurse. I spoke with RADHA Roman [facility] and she relays that the home POC INR today is 3.9. I discussed this with Dr. Argenis Diehl ([id number]) who advises that the patient follow a [...] her primary care provider, Dr. Neri Blackwell, [facility], [place], [place]. I have put in a call for Dr. Blackwell's care team to call us back. Will schedule an INR recheck for 01/20/21. I will fax a standing INR order to RADHA Roman, [facility], phone # [phone], fax #[phone]. She will fax results back to us. [...] OF PHONE CALL. Test results, symptom assessment. NTIFIC LINGUIST documented in this encounter Plan of Treatment Not on filedocumented as of this encounter Procedures Procedure Name Priority Date/Time Associated Comments Diagnosis PROTHROMBIN TIME Routine 01/16/2021 2:10 PM Resul ts for this (PT), P SCIENTIFIC LINGUIST procedure are i n the results section. documented in this encounter Results Prothrombin Time (PT) (01/16/2021 2:10 PM SCIENTIFIC LINGUIST) P athologist Signature EXT INR 3.90 OTHER (SPECIFY IN FIRE DEPARTMENT BATTALION CHIEF) Specimen (Source) Anatomical Collection Method Collection Time Re ceived Time Location / / Volume Laterality Blood (Blood, 01/16/2021 2:10 PM Venous) SCIENTIFIC LINGUIST Resulting Agency Comment [facility] Historical Provider LAB BLOOD ADD-ON Performing Organization Address City/State/ZIP Code Phon e Number OTHER (SPECIFY IN FIRE DEPARTMENT BATTALION CHIEF) OTHER (SPECIFY IN FIRE DEPARTMENT BATTALION CHIEF) N/A documented in this encounter Visit Diagnoses Diagnosis Stroke (HCC) - Primary Nursing Home (Current) Anticoagulant Treatm ent documented in this encounter Additional Health Concerns Assessment Noted Time PHQ-9 Depression Total Score: 5 04/05/2019 8:00 AM CDT documented as of this encounter
--- OUTSIDE RECORDS SUMMARY | 2022-09-09 08:03 | XMS_ITS | Encounter Summary ---
:1965 Author Organization [facility] Address [address] [place] [address] Care Team Providers Name Role Phone Unavailable Primary Care Provider Unavailable Encounter Details Date Type Department Care Team Description 01/05/2021 Anticoagulation Visit Department of Neurology Elvira Villalta in [facility] potato chip packaging machine operator RBrittonNBritton 1216 [facility] [address] [place] [phone] Social History Tobacco Use Types Packs/Day Years [...] you attend uatsdin or Patient refused 2021 quaker services? Do [...] an INR at her outside clinic in [place], [place] today and I called the lab [phone] and was told she did not report [...] advised for today, she report to the [facility] lab as scheduled. Ms. Mosquera states she will do that. RECOMMENDED LEVEL OF CARE. The patient/caller is willing and able to follow the nurse's recommendation. RESPONSE TO ADVICE GIVEN. Patient/caller able to teach back. REFERENCES UTILIZED. Nursing clinical judgment utilized. Other interventions or information: Provider advice. TYPE OF PHONE CALL. INR management ITURE MOVER Elvira Villalta R.N. - 01/05/2021 4:06 PM CST Patient's INR today is 1.47. Discussed with Dr. Neri Acevedo ([id number]) who advises that the patient take 7.5 [...] OF PHONE CALL. Test results, symptom assessment. ITURE MOVER documented in this encounter Plan of Treatment Not on filedocumented as of this encounter Procedures Procedure Name Priority Date/Time Associated Comments Diagnosis PROTHROMBIN TIME Routine 01/05/2021 3:15 PM Resul ts for this (PT), P FURNITURE MOVER procedure are i n the results section. documented in this encounter Results Prothrombin Time (PT) (01/05/2021 3:15 PM FURNITURE MOVER) P athologist Signature EXT INR 1.47 OTHER (SPECIFY IN SENIOR ART DIRECTOR) Specimen (Source) Anatomical Collection Method Collection Time Re ceived Time Location / / Volume Laterality Blood (Blood, 01/05/2021 3:15 PM Venous) FURNITURE MOVER Narrative This result has an attachment that is no t available. Resulting Agency Comment [facility] Historical Provider LAB BLOOD ADD-ON Performing Organization Address City/State/ZIP Code Phon e Number OTHER (SPECIFY IN SENIOR ART DIRECTOR) OTHER (SPECIFY IN SENIOR ART DIRECTOR) N/A documented in this encounter Visit Diagnoses Not on filedocumented in this encounter Additional Health Concerns Assessment Noted Time PHQ-9 Depression Total Score: 5 04/05/2019 8:00 AM CDT documented as of this encounter
--- OUTSIDE RECORDS SUMMARY | 2022-09-09 08:03 | XMS_ITS | Encounter Summary ---
:1965 Author Organization [facility] Address [address] [place] [address] Care Team Providers Name Role Phone Unavailable Primary Care Provider Unavailable Reason for Visit Reason Comments shyam Encounter Details Date Type Department Care Team Description 07/29/2020 Clinical Communication Department of Robert Diehl [id number]/[id number] Neurology in [place], [place] [address] [place] [address] 200 [place] [phone] Social History Tobacco Use Types Packs/Day Years [...] you attend taoist or Patient refused 2021 hindu services? Do [...] for magnetic resonance angiogram be sent to [facility]. José Miguel advise what the exact testing [...]
--- OUTSIDE RECORDS SUMMARY | 2022-09-09 08:04 | XMS_ITS | Encounter Summary ---
:1965 Author Organization [facility] Address [address] [place] [address] Care Team Providers Name Role Phone Unavailable Primary Care Provider Unavailable Reason for Visit Outpatient (Routine) - Closed Specialty Diagnoses / Procedures Referred By Contact Refer red To Contact Neurology Robert Diehl M. D. [facility] [address] [place] [phone] Referral ID Status Reason Start Date Expiration Date Visits Requ ested Visits Authorized [id number] Closed 06/28/2019 06/27/2020 1 1 Encounter Details Date Type Department Care Team Description 10/02/2019 Office Visit Department of Robert Diehl, Stroke (H CC) (Primary Dx); Neurology in M.D. Thrombosis Arterial (HCC) [place], [place] [address] [place] [address] [place] [phone] Social History Tobacco Use Types Packs/Day Years [...] you attend anglican or Patient refused 2021 jehovah's witness services? Do you belong to any clubs or No 05/17/2022 organizations such as anglican groups, unions, [employer] or athletic groups, or school groups? [...] a magnetic resonance angiogram completed at [facility]. Unfortunately we do not have [...] 1. Stroke (HCC) 2. Thrombosis Arterial (HCC) ICS INSTRUCTOR documented in this encounter Plan of Treatment Not on filedocumented as of this encounter Visit Diagnoses Diagnosis Stroke (HCC) - Primary Thrombosis Arterial (HCC) documented in this encounter Additional Health Concerns Assessment Noted Time PHQ-9 Depression Total Score: 5 04/05/2019 8:00 AM CDT documented as of this encounter
--- OUTSIDE RECORDS SUMMARY | 2022-09-09 08:04 | XMS_ITS | Encounter Summary ---
:1965 Author Organization [facility] Address [address] [place] [address] Care Team Providers Name Role Phone Unavailable Primary Care Provider Unavailable Reason for Visit Reason Onset Date Comments MRI from [facility] 10/02/2019 Dr. Diehl Encounter Details Date Type Department Care Team Description 10/02/2019 Clinical Communication Department of Robert Diehl MR I from [facility] (Dr. Bullock, 200 [facility] Fazal) [place], [place] [address] [place] [address] [place], [place] [phone] (Work) [phone] Social History Tobacco Use Types Packs/Day Years [...] with the radiology film room (Marlen) at [facility]. They have pushed the MRI and it should be here soon. NS PICKER documented in this encounter Plan of Treatment Not on filedocumented as of this encounter Visit Diagnoses Not on filedocumented in this encounter Additional Health Concerns Assessment Noted Time PHQ-9 Depression Total Score: 5 04/05/2019 8:00 AM CDT documented as of this encounter
--- OUTSIDE RECORDS SUMMARY | 2022-09-09 08:04 | XMS_ITS | Encounter Summary ---
:1965 Author Organization [facility] Address [address] [place] [address] Care Team Providers Name Role Phone Unavailable Primary Care Provider Unavailable Encounter Details Date Type Department Care Team Description 10/02/2019 Ancillary Procedure Department of Robert Diehl Arterial Radiology jimmy Celaya M.D. ([facility]) [place], [place] [address] [place] [address] [address] [place] [phone] Social History Tobacco Use Types Packs/Day Years [...] you attend lutheran or Patient refused 2021 voodoo services? Do [...] Robert Diehl M.D. - 10/02/2019 3:20 PM CAR ELECTRONICS INSTALLER FINISH CLEANER: Would you please give the patient a [...] artery finding and the left paraclinoid aneurysm. ELECTRONICS INSTALLER documented in this encounter Plan of Treatment Not on filedocumented as of this encounter Procedures Procedure Name Priority Date/Time Associated Comments Diagnosis INTERPRETATION OF RAD - Routine 10/02/2019 1:01 Thrombosis Result s for OUTSIDE MR NECK (most inpatients PM CAR ELECTRONICS INSTALLER Arterial (HCC) this p rocedure and all are in the outpatients) results section. documented in this encounter Results Interpretation of Outside MR Neck (10/02/2019 1:01 PM CAR ELECTRONICS INSTALLER) Anatomical Region Laterality Modality Neuroradiology RST LOS, Neuroradiology ARZ LOS, N/A Magnetic Resonance Neuroradiology FLA LOS, Neck Specimen (Source) Anatomical Collection Method Collection Time Re ceived Time Location / / Volume Laterality 10/02/2019 1:03 PM CAR ELECTRONICS INSTALLER Impressions 10/02/2019 1:18 PM CAR ELECTRONICS INSTALLER Similar appearance of the distal right vertebral artery irregularity and mild narrowing at C1, r elated to the nonocclusive luminal thrombus, as seen on the prior CTA exams . MRA neck otherwise negative and unchanged. Narrative 10/02/2019 1:18 PM CAR ELECTRONICS INSTALLER EXAM: ??INTERPRETATION OF OUTSIDE MR NECK COMPARISON: [...] MRA neck otherwise negative and unchanged. Robert NIELSNO MRI PROCEDURES documented in this encounter Visit Diagnoses Diagnosis Thrombosis Arterial (HCC) documented in this encounter Additional Health Concerns Assessment Noted Time PHQ-9 Depression Total Score: 5 04/05/2019 8:00 AM CDT documented as of this encounter
--- OUTSIDE RECORDS SUMMARY | 2022-09-09 08:04 | XMS_ITS | Encounter Summary ---
:1965 Author Organization [facility] Address [address] [place] [address] Care Team Providers Name Role Phone Unavailable Primary Care Provider Unavailable Reason for Visit Reason Onset Date Comments Nicotine Dependence 09/04/2019 Encounter Details Date Type Department Care Team Description 09/04/2019 Clinical Department of Tesfaye Ortega, Nicotine Janet grady Communication Nicotine Kenna D, Dependence, Jordy Alex, [facility] in [place], [place] [address] [place] [address] Social History Tobacco Use Types Packs/Day Years [...] you attend congregation or Patient refused 2021 presybeterian services? Do [...]
--- OUTSIDE RECORDS SUMMARY | 2022-09-09 08:04 | XMS_ITS | Encounter Summary ---
:1965 Author Organization [facility] Address [address] [place] [address] Care Team Providers Name Role Phone Unavailable Primary Care Provider Unavailable Encounter Details Date Type Department Care Team Description 11/29/2019 Hospital Encounter Department of Jey Santana, Rhinosi nusitis Chronic; Laboratory Medicine M.D. Preanesthetic Medical Exam and Pathology, [address] [place] [address] in [facility] [phone] [place] [phone] [place] [address] (Work) [place], [place] [phone] (Fax) [phone] Social History Tobacco Use Types Packs/Day Years [...] you attend sikh or Patient refused 2021 zoroastrianism services? Do [...] R esults for this DIFFERENTIAL, B AM TRENCH DIGGING MACHINE OPERATOR procedure ar e in the results section. CREATININE WITH Routine 11/29/2019 11:30 Preanesthetic Medical Results for this EGFR, S/P AM TRENCH DIGGING MACHINE OPERATOR Exam procedure are i n the results section. documented in this encounter Results Creatinine with Estimated GFR - for Lab Draw (11/29/2019 11:30 AM TRENCH DIGGING MACHINE OPERATOR) P athologist Signature Creatinine 0.98 0.59 - 11/29/2019 DTL 1.04 mg/dL 1:05 PM TRENCH DIGGING MACHINE OPERATOR eGFR-Non 65 >=60 11/29/2019 DTL Black/ mL/min/BSA 1:05 PM TRENCH DIGGING MACHINE OPERATOR [place] Comment: ----ADDITIONAL INFORMATION---- Estimated GFR calculated using the 2009 CKD_EPI creatinine equation. eGFR-Black/ 75 >=60 mL/min/BSA 2019 1:05 PM TRENCH DIGGING MACHINE OPERATOR DTL Comment: ----ADDITIONAL INFORMATION---- Estimated GFR calculated using the 2009 CKD_EPI creatinine equation. Specimen Anatomical Collection Method Collection Time Receive d Time (Source) Location / / Volume Laterality Blood (Blood, 11/29/2019 11:30 11/29/2019 Venous) AM TRENCH DIGGING MACHINE OPERATOR 11:50 AM TRENCH DIGGING MACHINE OPERATOR Miranda Collado APRN C.N.P., M.S.N. LAB BLOOD ADD-ON Performing Organization Address City/State/[facility] Code Phon e Number [facility] - [address] [place] [phone] [place] [place] [address] Laboratories-[facility] 200 [facility] (ABNORMAL) CBC without Differential (11/29/2019 11:30 AM TRENCH DIGGING MACHINE OPERATOR) Patholo gist Method Time Signature Hemoglobin 13.3 11.6 - 11/29/2019 DTL 15.0 g/dL 12:09 PM TRENCH DIGGING MACHINE OPERATOR Hematocrit 40.6 35.5 - 11/29/2019 DTL 44.9 % 12:09 PM TRENCH DIGGING MACHINE OPERATOR Erythrocytes 4.08 3.92 - 11/29/2019 DTL 5.13 12:09 PM TRENCH DIGGING MACHINE OPERATOR x10(12)/L MCV 99.5 (H) 78.2 - 11/29/2019 DTL 97.9 fL 12:09 PM TRENCH DIGGING MACHINE OPERATOR RBC Distrib Width 13.3 12.2 - 11/29/2019 DTL 16.1 % 12:09 PM TRENCH DIGGING MACHINE OPERATOR Platelet Count 234 157 - 371 11/29/2019 DTL x10(9)/L 12:09 PM TRENCH DIGGING MACHINE OPERATOR Leukocytes 5.8 3.4 - 9.6 11/29/2019 DTL x10(9)/L 12:09 PM TRENCH DIGGING MACHINE OPERATOR Specimen Anatomical Collection Method Collection Time Receive d Time (Source) Location / / Volume Laterality Blood (Blood, 11/29/2019 11:30 11/29/2019 Venous) AM TRENCH DIGGING MACHINE OPERATOR 11:50 AM TRENCH DIGGING MACHINE OPERATOR Jey Santana M.D. LAB BLOOD ADD-ON Performing Organization Address City/State/ZIP Code Phon e Number [facility] - 200 [address] [place], [place] [address] [place] [address] Laboratories-[facility] 200 [facility] documented in this encounter Visit Diagnoses Diagnosis Rhinosinusitis Chronic Preanesthetic Medical Exam documented in this encounter Additional Health Concerns Assessment Noted Time PHQ-9 Depression Total Score: 5 04/05/2019 8:00 AM CDT documented as of this encounter
--- OUTSIDE RECORDS SUMMARY | 2022-09-09 08:04 | XMS_ITS | Encounter Summary ---
:1965 Author Organization [facility] Address [address] [place] [address] Care Team Providers Name Role Phone Unavailable Primary Care Provider Unavailable Encounter Details Date Type Department Care Team Description 10/03/2019 Clinical Communication Department of Robert Diehl, Neurology in .. [place], [place] 200 [facility] 200 [place] [phone] Social History Tobacco Use Types Packs/Day Years [...] you attend mormonism or Patient refused 2021 christianity services? Do [...] Coby this is for you, records request FITS OFFICER Telephone Encounter - Janis Preston R.N. - 10/03/2019 3:11 PM CST Called patient back with update about aspirin per Dr. Diehl. Patient voiced understanding that she will stop the warfarin and continue baby aspirin. She wants notes about her visit sent to her DrBrittonin [place]. Janis Preston R.N. FITS OFFICER Telephone Encounter - Janis Preston R.N. - [...] dose and warfarin discontinuation. Janis Preston R.N. FITS OFFICER documented in this encounter Plan of Treatment Not on filedocumented as of this encounter Visit Diagnoses Not on filedocumented in this encounter Additional Health Concerns Assessment Noted Time PHQ-9 Depression Total Score: 5 04/05/2019 8:00 AM CDT documented as of this encounter
--- OUTSIDE RECORDS SUMMARY | 2022-09-09 08:04 | XMS_ITS | Encounter Summary ---
:1965 Author Organization [facility] Address [address] [place] [address] Care Team Providers Name Role Phone Unavailable Primary Care Provider Unavailable Encounter Details Date Type Department Care Team Description 10/02/2019 Orders Only Department of Robert Diehl Thrombosi s Arterial Neurology in [place] ([facility]) (Primary Dx) [place], [place] [address] [place] [address] 200 [place] [phone] Social History Tobacco Use Types Packs/Day Years [...] you attend zoroastrianism or Patient refused 2021 episcopal services? Do [...] of Outside MR Neck (10/02/2019 1:01 PM AS400 DEVELOPER) Anatomical Region Laterality Modality Neuroradiology RST LOS, Neuroradiology ARZ LOS, N/A Magnetic Resonance Neuroradiology FLA LOS, Neck Specimen (Source) Anatomical Collection Method Collection Time Re ceived Time Location / / Volume Laterality 10/02/2019 1:03 PM AS400 DEVELOPER Impressions 10/02/2019 1:18 PM AS400 DEVELOPER Similar appearance of the distal right vertebral artery irregularity and mild narrowing at C1, r elated to the nonocclusive luminal thrombus, as seen on the prior CTA exams . MRA neck otherwise negative and unchanged. Narrative 10/02/2019 1:18 PM AS400 DEVELOPER EXAM: ??INTERPRETATION OF OUTSIDE MR NECK COMPARISON: [...]
--- OUTSIDE RECORDS SUMMARY | 2022-09-09 08:04 | XMS_ITS | Encounter Summary ---
:1965 Author Organization [facility] Address [address] [place] [address] Care Team Providers Name Role Phone Unavailable Primary Care Provider Unavailable Encounter Details Date Type Department Care Team Description 12/06/2019 Clinical Communication Department of Robert Diehl, Neurology in .. [place], [place] 200 [facility] 200 [place] [phone] Social History Tobacco Use Types Packs/Day Years [...] you attend yarsani or Patient refused 2021 mormonism services? Do [...] during her next visit. Janis Preston R.N. EMAN Telephone Encounter - Janis Preston R.N. - 12/06/2019 1:35 PM CST ----- Message from Robert Diehl M.D. sent at 12/03/2019 10:17 AM SCALEMAN ----- Regarding: FW: Overnight oximetry Good morning Would you be able to reach out and let this patient know the oximetry was unsuccessful and would need to be repeated and ask if they would like to do this? Thank you! Electronically signed by: Robert Diehl M.D. 12/03/19 10:18 AM SCALEMAN ----- Message ----- From: Carolynn Stokes Sent: 11/29/2019 2:39 PM SCALEMAN To: Robert Diehl M.D. Subject: Overnight oximetry Your patients overnight oximetry test did not have recorded data of sufficient duration for an interpretation to be completed and was returned four months after appointment. Therefore an overnight oximetry report will not be generated to [facility]. Please contact your clinical paralegal assistant to reschedule an overnight oximetry test if you wish the patient to repeat an overnight oximetry test. EMAN documented in this encounter Plan of Treatment [...] Address City/State/ZIP Code Phon e Number [place] documented in this encounter Visit Diagnoses Diagnosis Fatigue - Primary Fatigue documented in this encounter Additional Health Concerns Assessment Noted Time PHQ-9 Depression Total Score: 5 04/05/2019 8:00 AM CDT documented as of this encounter
--- OUTSIDE RECORDS SUMMARY | 2022-09-09 08:04 | XMS_ITS | Encounter Summary ---
:[address] [facility] Address [address] [place] [address] Care Team Providers Name Role Phone Unavailable Primary Care Provider Unavailable Reason for Visit Reason Onset Date Comments Schedule Surgery 10/05/2019 Encounter Details Date Type Department Care Team Description 10/05/2019 Clinical Department of [place], Schedule Surge ry Communication Otorhinolaryngology in [place], [place] 200 [facility] [address] [place] [phone] [place] [address] Social History Tobacco Use Types Packs/Day Years [...] you attend pentecostal or Patient refused 2021 druze services? Do [...] Kaykay Murphy R.N. - 10/17/2019 8:10 AM MANAGER ENERGY Pt has return appt with EKO on 10/23 GER ENERGY Telephone Encounter - Alana Engel L.P.NBritton - 10/09/2019 2:49 PM CST Note sent to DR. Olmedo and patient's Neurology team to discuss clearance for surgery. Desk is scheduling a return for the patient ot discuss surgery. GER ENERGY Telephone Encounter - Alana Engel L.P.N. - [...] following references were used: provider Dr. Olmedo GER ENERGY Telephone Encounter - Zoey Lipscomb - 10/05/2019 [...] surgical date. She can be reached at [phone]. GER ENERGY documented in this encounter Plan of Treatment Not on filedocumented as of this encounter Visit Diagnoses Not on filedocumented in this encounter Additional Health Concerns Assessment Noted Time PHQ-9 Depression Total Score: 5 04/05/2019 8:00 AM CDT documented as of this encounter
--- OUTSIDE RECORDS SUMMARY | 2022-09-09 08:04 | XMS_ITS | Encounter Summary ---
:1965 Author Organization [facility] Address [address] [place] [address] Care Team Providers Name Role Phone Unavailable Primary Care Provider Unavailable Reason for Visit Reason Onset Date Comments Patient wants letter and notes sent to physician in 10/03/[address] Robert Diehl [facility] [place] Encounter Details Date Type Department Care Team Description 10/03/2019 Clinical Communication Department of Robert Diehl Neurology in [place], [place] letter and notes [address] sent to physician [employer], [place] in [facility] [place] ( [address] [place] [phone] Robert Diehl) [place], [place] [phone] (Work) [phone] Social History Tobacco Use Types Packs/Day Years [...] you attend mandaen or Patient refused 2021 anglican services? Do [...] CST As per documentation in [facility] on 09/04, a letter has been sent to Dr. Blackwell with the patient's notes from her most recent visit. ARCH PHLEBOTOMIST documented in this encounter Plan of Treatment Not on filedocumented as of this encounter Visit Diagnoses Not on filedocumented in this encounter Additional Health Concerns Assessment Noted Time PHQ-9 Depression Total Score: 5 04/05/2019 8:00 AM CDT documented as of this encounter
--- OUTSIDE RECORDS SUMMARY | 2022-09-09 08:04 | XMS_ITS | Encounter Summary ---
:1965 Author Organization [facility] Address [address] [place] [address] Care Team Providers Name Role Phone Unavailable Primary Care Provider Unavailable Reason for Visit Reason Onset Date Comments wants to have MRI done closer to home before appt 09/03/2019 [facility] Encounter Details Date Type Department Care Team Description 09/03/2019 Clinical Communication Department of [facility] Robert cabrera nts to have MRI Neurology in [place], [place] done closer to home [facility] before appt [place], [place] ([facility]) [address] [facility] [address] [place], [place] [phone] (Work) [phone] Social History Tobacco Use Types Packs/Day Years [...] you attend samaritan or Patient refused 2021 jain services? Do [...] for MRA faxed to Dr. Blackwell at [facility] at fax [phone]. Called the patient and left a message [...] like to have her MRI done at [facility] before her appointment with Dr. Diehl on 09/19. Or if she could get her MRI scheduled for the same day as she is here for her appointment. She doesn't want to drive 2 days in a row. She wanted the order sent to Dr. Blackwell so I guess just send notes to Dr. Clemente Blackwell at [facility] Phone- [phone] documented in this encounter Plan of Treatment Not on filedocumented as of this encounter Visit Diagnoses Not on filedocumented in this encounter Additional Health Concerns Assessment Noted Time PHQ-9 Depression Total Score: 5 04/05/2019 8:00 AM CDT documented as of this encounter
--- OUTSIDE RECORDS SUMMARY | 2022-09-09 08:04 | XMS_ITS | Encounter Summary ---
:1965 Author Organization [facility] Address [address] [place] [address] Care Team Providers Name Role Phone Unavailable Primary Care Provider Unavailable Reason for Visit Outpatient (Routine) - Closed Specialty Diagnoses / Procedures Referred By Contact Refer red To Contact General Surgery Diagnoses Rhinosinusitis Chronic Jey Santana M.D. [facility] [address] [place] [phone] Referral ID Status Reason Start Date Expiration Date Visits Requ ested Visits Authorized [id number] Closed 11/08/2019 11/07/2020 1 1 Encounter Details Date Type Department Care Team Description 11/29/2019 Comprehensive Visit Preoperative Jey Santana M.D. [address] [place] [phone] Preanesthetic Medical Exam (Primary Dx); Evaluation Center in Lanre Carvajal M.D. [address] [place] [phone] Rhinosinusitis Chronic [place], [place] [address] [place] [phone] Social History Tobacco Use Types Packs/Day Years [...] you attend lutheran or Patient refused 2021 congregational services? Do [...] Comments Blood Pressure 108/74 11/29/2019 12:45 PM CRNP Pulse 104 11/29/2019 12:45 PM CRNP Temperature 36.5 ??C (97.7 ??F) 11/29/2019 12:45 PM CRNP Respiratory Rate - - Oxygen Saturation 96% 11/29/2019 12:45 PM CRNP Inhaled Oxygen Concentration - - Weight 76.4 kg (168 lb 6.9 oz) 11/29/2019 12:45 PM CRNP Height 151.7 cm (4' 11.72) 11/29/2019 12:45 PM CRNP Body Mass Index 33.2 11/29/2019 12:45 PM CRNP documented in this encounter H&P Notes Lanre Carvajal M.D. - 11/29/2019 12:45 PM CST Preoperative Medical Evaluation Patient Name: Angie Mosquera Age: 54 y.o. Date of : 1965 Patient [address]: [address] [place] [phone] Primary Care Provider: No primary care provider [...] #11 Patent Foramen [place] (HCC) Noted on [id number]/ ECHO otherwise normal. I will not pursue anything further documented in this encounter Plan of Treatment Not on filedocumented as of this encounter Results Creatinine with Estimated GFR - for Lab Draw (11/29/2019 11:30 AM CRNP) P athologist Signature Creatinine 0.98 0.59 - 11/29/2019 DTL 1.04 mg/dL 1:05 PM CRNP eGFR-Non 65 >=60 11/29/2019 DTL Black/ mL/min/BSA 1:05 PM CRNP Ecuadorean Comment: ----ADDITIONAL INFORMATION---- Estimated GFR calculated using the 2009 CKD_EPI creatinine equation. eGFR-Black/ 75 >=60 mL/min/BSA 2019 1:05 PM CRNP DTL Comment: ----ADDITIONAL INFORMATION---- Estimated GFR calculated using the 2009 CKD_EPI creatinine equation. Specimen Anatomical Collection Method Collection Time Receive d Time (Source) Location / / Volume Laterality Blood (Blood, 11/29/2019 11:30 11/29/2019 Venous) AM CRNP 11:50 AM CRNP Miranda Collado APRN, C.N.P., M.S.N. LAB BLOOD ADD-ON Performing Organization Address City/State/ZIP Code Phon e Number [facility] - [address] [place], [place] [address] [facility] [place] [address] Laboratories-[facility] [address] documented in this encounter Visit Diagnoses Diagnosis Preanesthetic Medical Exam - Primary Rhinosinusitis Chronic documented in this encounter Additional Health Concerns Assessment Noted Time PHQ-9 Depression Total Score: 5 04/05/2019 8:00 AM CDT documented as of this encounter
--- OUTSIDE RECORDS SUMMARY | 2022-09-09 08:04 | XMS_ITS | Encounter Summary ---
:1965 Author Organization [facility] Address [address] [place] [address] Care Team Providers Name Role Phone Unavailable Primary Care Provider Unavailable Reason for Referral Outpatient (Routine) - Closed Specialty Diagnoses / Procedures Referred By Contact Refer herson To Contact General Surgery Diagnoses Rhinosinusitis Chronic John Gomez M.D. [address] [phone] Referral ID Status Reason Start Date Expiration Date Visits Requ ested Visits Authorized [id number] Closed 11/08/2019 11/07/2020 1 1 utpatient (Routine) - Closed Specialty Diagnoses / Procedures Referred By Contact Clyde bains To Contact Otorhinolaryngology John oGmez M.D. [address] [phone] Referral ID Status Reason Start Date Expiration Date Visits Requ ested Visits Authorized [id number] Closed 11/08/2019 11/07/2020 1 1 Scheduling Instructions EKO listing visit and NESHA 11/29/2019 E MECHANIC Reason for Visit Reason Onset Date Comments reschedule surgery 11/07/2019 Patient was a no sydni w for surgery with Dr. Olmedo on 11/05/19. Encounter Details Date Type Department Care Team Description 11/07/2019 Clinical Department of shawna Olmedo Communication Otorhinolaryngology in [place], surg silva (Patient [place], [place] M.D. was a no show for [address] [place]. [place], [place] [id number] SHAHANA Iron on [phone] [place], 11/05/19.) [place] [phone] Social History Tobacco Use Types Packs/Day Years [...] you attend tenriism or Patient refused 2021 judaism services? Do [...] Tanvi White R.N. - 11/09/2019 10:02 AM SCALE MECHANIC Patient called to let her know of the preoperative appointments and listing appointment with Dr. Darlin Olmedo. She was also informed that she does not have to stop the aspirin 81 mg for surgery. She verbalized understanding regarding the use of aspirin and was appreciative of the call. E MECHANIC Telephone Encounter - John Gomez M.D. - 11/08/2019 5:00 PM CST Kosta Wu I placed the NESHA, listing visit, and created the listing. She can stay on her 81 ASA. Thank you. E MECHANIC Addendum Note - John Gomez M.D. - 11/08/2019 4:59 PM SCALE MECHANIC Addended by: JOHN GOMEZ on: 11/08/2019 04:59 PM Modules accepted: Orders E MECHANIC Telephone Encounter - Tanvi White R.N. - 11/08/2019 10:59 AM SCALE MECHANIC SUBJECTIVE CHIEF COMPLAINT / REASON FOR [...] the surgical date. She will require a diesel pile driver operator and that plan will work better for her. Disposition/Recommendation: Patient is aware that she will need to call in the night before surgeryfor a report time to [facility]. Information/Education: patient/caller able to teach back Caller agreeable to plan of care: yes The following references were used: nursing clinical judgement E MECHANIC Telephone Encounter - Darlin Olmedo M.D. - 11/08/2019 10:16 AM CST Any of those days are fine. I should see her for a listing visit and NESHA. thanks E MECHANIC Telephone Encounter - Tanvi White R.N. - 11/07/2019 1:34 PM SCALE MECHANIC SUBJECTIVE CHIEF COMPLAINT / REASON FOR [...] following references were used: nursing clinical judgement E MECHANIC documented in this encounter Plan of Treatment Scheduled Referrals Name Type Priority Associated Diagnoses Order S chedule Otorhinolaryngology office Outpatient Routine E xpected: visit (clinic) Referral 11/29/2019, Expires: 11/08/2022 Preoperative Evaluation Outpatient Routine Rhinosinusitis Ex pected: NESHA consult (clinic) Referral Chronic 020 (Approximate), Expires: 11/08/2022 documented as of this encounter Results (ABNORMAL) CBC without Differential (11/29/2019 11:30 AM SCALE MECHANIC) [facility] gist Method Time Signature Hemoglobin 13.3 11.6 - 11/29/2019 DTL 15.0 g/dL 12:09 PM SCALE MECHANIC Hematocrit 40.6 35.5 - 11/29/2019 DTL 44.9 % 12:09 PM SCALE MECHANIC Erythrocytes 4.08 3.92 - 11/29/2019 DTL 5.13 12:09 PM SCALE MECHANIC x10(12)/L MCV 99.5 (H) 78.2 - 11/29/2019 DTL 97.9 fL 12:09 PM SCALE MECHANIC RBC Distrib Width 13.3 12.2 - 11/29/2019 DTL 16.1 % 12:09 PM SCALE MECHANIC Platelet Count 234 157 - 371 11/29/2019 DTL x10(9)/L 12:09 PM SCALE MECHANIC Leukocytes 5.8 3.4 - 9.6 11/29/2019 DTL x10(9)/L 12:09 PM SCALE MECHANIC Specimen Anatomical Collection Method Collection Time Receive d Time (Source) Location / / Volume Laterality Blood (Blood, 11/29/2019 11:30 11/29/2019 Venous) AM SCALE MECHANIC 11:50 AM SCALE MECHANIC John Gomez M.D. LAB BLOOD ADD-ON Performing Organization Address City/State/ZIP Code Phon e Number [facility] - [address] [place], [place] [address] [facility] [place] [address] Laboratories-[employer] [facility] [address] documented in this encounter Visit Diagnoses Diagnosis Rhinosinusitis Chronic - Primary documented in this encounter Additional Health Concerns Assessment Noted Time PHQ-9 Depression Total Score: 5 04/05/2019 8:00 AM CDT documented as of this encounter
--- OUTSIDE RECORDS SUMMARY | 2022-09-09 08:04 | XMS_ITS | Encounter Summary ---
:1965 Author Organization [facility] Address [address] [place] [address] Care Team Providers Name Role Phone Unavailable [...] you attend druze or Patient refused 2021 scientologist services? Do [...] 11/29/2019 3:10 Results for this EXAM PM DRY PLASTERER HELPER procedure are i n the results section. documented in this encounter Results NOSE-Otorhinolaryngology Image Exam (11/29/2019 3:10 PM DRY PLASTERER HELPER) Specimen (Source) Anatomical Collection Method Collection Time Re ceived Time Location / / Volume Laterality 11/29/2019 3:08 PM DRY PLASTERER HELPER Narrative IIMS - 11/29/2019 3:58 PM DRY PLASTERER HELPER This order has been created and auto-finalized [...]
--- OUTSIDE RECORDS SUMMARY | 2022-09-09 08:04 | XMS_ITS | Encounter Summary ---
:1965 Author Organization [facility] Address [address] [place] [address] Care Team Providers Name Role Phone Unavailable Primary Care Provider Unavailable Reason for Visit Reason Onset Date Comments Nicotine Dependence 08/30/2019 Encounter Details Date Type Department Care Team Description 08/30/2019 Clinical Department of Tesfaye Ortega, Nicotine Janet grady Communication Nicotine Kenna D, Dependence, Jordy Alex, [facility] in [place], [place] [address] [place] [address] Social History Tobacco Use Types Packs/Day Years [...]
--- OUTSIDE RECORDS SUMMARY | 2022-09-09 08:04 | XMS_ITS | Encounter Summary ---
:1965 Author Organization [facility] Address [address] [place] [address] Care Team Providers Name Role Phone Unavailable Primary Care Provider Unavailable Encounter Details Date Type Department Care Team Description 09/03/2019 Documentation Department of Neurology in Robert Fontanez M.D. [place], [place] 200 [facility] 200 [place] [phone] (Wo rk) Social History Tobacco Use Types [...] you attend evangelical or Patient refused 2021 druze services? Do [...]
--- OUTSIDE RECORDS SUMMARY | 2022-09-09 08:04 | XMS_ITS | Encounter Summary ---
:1965 Author Organization [facility] Address [address] [place] [address] Care Team Providers Name Role Phone Unavailable Primary Care Provider Unavailable Reason for Visit Outpatient (Routine) - Closed Specialty Diagnoses / Procedures Referred By Contact Refer red To Contact Otorhinolaryngology Jey Santana M.D. [facility] [address] [place] [phone] Referral ID Status Reason Start Date Expiration Date Visits Requ ested Visits Authorized [id number] Closed 11/08/2019 11/07/2020 1 1 Encounter Details Date Type Department Care Team Description 11/29/2019 Office Visit Department of Darlin Olmedo Mucocele Nasa l Sinus Otorhinolaryngology jimmy Brumfield M.D. (Primary Dx) [address] [place] [phone] Social History Tobacco Use Types Packs/Day Years [...] you attend sikh or Patient refused 2021 catholic services? Do you belong to any clubs or No 05/17/2022 organizations such as sikh groups, unions, [employer] or athletic groups, or school groups? How [...] Previous sinus surgery: sinus surgery X2 in [place] and X2 at [place] per patient; mucocele notedby left eye on [...] Crusting Mild = 1 Mild = 1 [place] Score = 2 ASSESSMENT / PLAN [...] if this occurs we will identify another plan consultant surgeon to supervise other team members to safely and seamlessly complete the procedure. Signed consent was obtained today. Patient was seen and examined today in conjunction with Dr. Darlin Olmedo ([phone]). RNMENT INSTRUCTOR Associated attestation - Darlin Olmedo M.D. - 11/30/2019 10:43 AM GOVERNMENT INSTRUCTOR I was the supervising physician in the delivery of the service. I saw the patient with Krista Casey APRN, DIMMER BOARD OPERATOR, MSN and agree with her history, Assessment [...]
--- OUTSIDE RECORDS SUMMARY | 2022-09-09 08:04 | XMS_ITS | Encounter Summary ---
:1965 Author Organization [facility] Address [address] [place] [address] Care Team Providers Name Role Phone Unavailable Primary Care Provider Unavailable Encounter Details Date Type Department Care Team Description 12/07/2019 Surgery RST ROMB [facility]ISA OR Darlin Olmedo, SINUSOTOMY ENDOSCOPY [address] [place] [address] [address] [place] [address] [place] [phone] Social History Tobacco Use Types Packs/Day Years [...] sinus rinse kit (jose ramon Dalal or [place]). - Follow the directions on the bottle [...] our clinic or with another department at [facility], an appointment willbe made for you. If you have not received specific details (date, time, location) within 2 weeks of discharge, please contact our office at [phone] to inquire. If you are to follow up somewhere other than [facility], please schedule this appointment (in the timeframe recommended by your surgeon)at your earliest convenience. CONTACT INFORMATION: If you need to reach the Department of ENT at the [facility] regarding any questions during normal business hours, please call . If you are calling after normal business hours and have a concern that needs to be addressed urgently, please call the [facility] Latin Teacher at and ask to speak to the ENT resident corporate bond trader. RONMENTAL CONSTRUCTION ENGINEER AttachmentsThe following attachments cannot be sent through Care Everywhere.Your Scopolamine Patch (Djiboutian)documented in this encounter Medications at Time [...] Extradural computer navigation was registered according to shock absorption floor layer's guidelines and confirmed to be accurate within [...] 5 mL Implants None Darlin Olmedo M.D. RONMENTAL CONSTRUCTION ENGINEER Brief Op Note - Jey Santana [...] Loss None Implants None Jey Santana M.D. 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 Case Notes BARREL CLEANER 10:37 documented in this encounter Visit Diagnoses Diagnosis Rhinosinusitis Chronic Mucocele Nasal Sinus documented in this encounter Administered Medications Inactive Administered Medications - up to 3 most recent administrations Medication Order MAR Action Action Date Dose Rate Site acetaminophen injection 1,000 New Bag 12/07/2019 2:38 PM 1,000 mg 400 mL/hr mg (OFIRMEV) ENVIRONMENTAL CONSTRUCTION ENGINEER 1,000 mg, intravenous, at 400 mL/hr, [...] 1,000 mg (TYLENOL) Given 12/07/2019 12:06 PM ENVIRONMENTAL CONSTRUCTION ENGINEER 1,000 mg 1,000 mg, oral, Once, On Tue12/07/19 at 1200, For 1 dose, Pre-Op aprepitant capsule 40 mg (EMEND) Given 12/07/2019 12:06 PM ENVIRONMENTAL CONSTRUCTION ENGINEER 40 mg 40 mg, oral, Once as needed, prevent ponv, Starting on Tue12/07/19 at 1145, For 1 dose, Pre-Op caffeine tablet 200 mg Given 12/07/2019 12:06 PM ENVIRONMENTAL CONSTRUCTION ENGINEER 200 mg 200 mg, oral, Once as needed, pre-op to prevent caffeine withdrawal headache or to enhance emergence from anesthesia/sedation, Starting on Tue12/07/19 at 1145, For 1 dose, Pre-Op, With sips cocaine 4 % external solution Given 12/07/2019 1:10 PM ENVIRONMENTAL CONSTRUCTION ENGINEER 4 mL Other As needed, Starting on Tue12/07/19 at 1310, Intra-Op droperidol injection 0.625 mg (INAPSINE) Given 12/07/2019 2:37 PM ENVIRONMENTAL CONSTRUCTION ENGINEER 0.625 mg 0.625 mg, intravenous, Every [...] 25 mcg (SUBLIMAZE) Given 12/07/2019 2:32 PM ENVIRONMENTAL CONSTRUCTION ENGINEER 25 mcg 25 mcg, intravenous, Every 2 min PRN, For pain 4 or greater (maximum 100 mcg). If max dose of Fentanyl is reached and if pain is greater than 4, discontinue Fentanyl: give Hydromorphone, Starting on Tue12/07/19 at 1145, Pre-Op ketamine injection 10 mg (KETALAR) Given 12/07/2019 2:37 PM ENVIRONMENTAL CONSTRUCTION ENGINEER 10 mg 10 mg, intravenous, Once as needed, Pain sedation mismatch AND RASS score less than -1, Starting on Tue12/07/19 at 1430, For 1 dose, PACU (only) lactated ringers New Bag 12/07/2019 3:48 PM ENVIRONMENTAL CONSTRUCTION ENGINEER 20 mL/hr 20 mL/hr 20 mL/hr, intravenous, Continuous, Starting on Tue12/07/19 at 1400, PACU & Post-Op Continued from OR 12/07/2019 2:25 PM ENVIRONMENTAL CONSTRUCTION ENGINEER 20 mL/hr 20 mL/hr lidocaine-EPINEPHrine 1 %-1:100,000 Given 12/07/2019 1:45 PM ENVIRONMENTAL CONSTRUCTION ENGINEER 2 mL Other injection (XYLOCAINE W/EPI) As needed, Starting on Tue12/07/19 at 1320, Intra-Op Given 12/07/2019 1:20 PM ENVIRONMENTAL CONSTRUCTION ENGINEER 1.5 mL Other metoprolol tablet 12.5 [...] 2 mg (VERSED) Given 12/07/2019 12:28 PM ENVIRONMENTAL CONSTRUCTION ENGINEER 2 mg 2 mg, intravenous, Once as needed, anxiety, sedation, Starting on Tue12/07/19 at 1145, For 1 dose, Pre-Op ondansetron ODT disintegrating tablet 4 mg Given 12/07/2019 12:0 7 PM ENVIRONMENTAL CONSTRUCTION ENGINEER 4 mg (ZOFRAN-ODT) 4 mg, sublingual, Once, On Tue12/07/19 at 1200, For 1 dose, Pre-Op, When splitting ODT at bedside, handle with gloves and a pill splitter to prevent moisture contact. oxymetazoline 0.05 % nasal spray Given 12/07/2019 1:42 PM ENVIRONMENTAL CONSTRUCTION ENGINEER 1 application (AFRIN) As needed, Starting on Tue12/07/19 at 1342, Intra-Op scopolamine base 1 mg Medication Applied 12/07/2019 12:11 PM 1 patch Behind Right over 3 days 1 patch ENVIRONMENTAL CONSTRUCTION ENGINEER Ear (TRANSDERM SCOP) 1 patch, transdermal, [...] Recently Administered Medications Times are shown in ENVIRONMENTAL CONSTRUCTION ENGINEER. Scheduled Medication Order 12/05/2019 12/06/2019 12/07/2019 [...] (COMPLETED) 1251 (Given - Provider: Gini Garcia, DISTRICT COURT JUDGE, HYDRAULIC REPAIRER) 1,250 mg (rounded from 1,146 mg = [...] 1211 (Medication Applied - Provider: Steph Gallo R.N.)1644 (Due: Medication Removed - Provider: Discharge Provider, [...]
--- OUTSIDE RECORDS SUMMARY | 2022-09-09 08:04 | XMS_ITS | Encounter Summary ---
:1965 Author Organization [facility] Address [address] [place] [address] Care Team Providers Name Role Phone Unavailable Primary Care Provider Unavailable Encounter Details Date Type Department Care Team Description 10/09/2019 Orders Only Department of Otorhinolaryngology Alana Engel, in [facility] [address] [place] [address] [address] [place] [address] [place], [place] [phone] Social History Tobacco Use Types Packs/Day Years [...] you attend [facility] or Patient refused 2021 [facility]? Do [...]
--- OUTSIDE RECORDS SUMMARY | 2022-09-09 08:04 | XMS_ITS | Encounter Summary ---
:1965 Author Organization [facility] Address [address] [place] [address] Care Team Providers Name Role Phone Unavailable Primary Care Provider Unavailable Encounter Details Date Type Department Care Team Description 12/07/2019 Hospital Encounter RST ROMB MAIN OR Darlin Olmedo, [address] [facility] [place] [address] [address] [place] [address] [place] [address] Social History Tobacco Use Types [...] Comments Blood Pressure 114/72 12/07/2019 3:30 PM OPERATOR [employer]FARE Pulse 75 12/07/2019 4:25 PM [employer] Temperature 36.5 ??C (97.7 ??F) 12/07/2019 2:32 PM [employer] Respiratory Rate 15 12/07/2019 4:25 PM [employer] Oxygen Saturation 94% 12/07/2019 4:25 PM [employer] Inhaled Oxygen Concentration - - Weight - [...] saline sinus rinse kit (suchas NeIron or [place]). - Follow the directions on the bottle [...] our clinic or with another department at [facility], an appointment willbe made for you. If you have not received specific details (date, time, location) within 2 weeks of discharge, please contact our office at [phone] to inquire. If you are to follow up somewhere other than [facility], please schedule this appointment (in the timeframe recommended by your surgeon)at your earliest convenience. CONTACT INFORMATION: If you need to reach the Department of ENT at the [facility] regarding any questions during normal business hours, please call . If you are calling after normal business hours and have a concern that needs to be addressed urgently, please call the [facility] Director Of Product Development at and ask to speak to the ENT resident nutrition services assistant. [employer] AttachmentsThe following attachments cannot be sent through [...] Extradural computer navigation was registered according to crystal mounter's guidelines and confirmed to be accurate within [...] 5 mL Implants None Darlin Olmedo M.D. [employer] Brief Op Note - Jey Santana M.D. [...] Loss None Implants None Jey Santana M.D. 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 Case Notes FORMULATION TECHNICIAN 10:37 documented in this encounter Visit Diagnoses Not on filedocumented in this encounter Administered Medications Inactive Administered Medications - up to 3 most recent administrations Medication Order MAR Action Action Date Dose Rate Site acetaminophen injection 1,000 New Bag 12/07/2019 2:38 PM 1,000 mg 400 mL/hr mg (OFIRMEV) [employer] 1,000 mg, intravenous, at 400 mL/hr, Administer [...] 1,000 mg (TYLENOL) Given 12/07/2019 12:06 PM OPER[employer] 1,000 mg 1,000 mg, oral, Once, On Tue12/07/19 at 1200, For 1 dose, Pre-Op aprepitant capsule 40 mg (EMEND) Given 12/07/2019 12:06 PM [employer] 40 mg 40 mg, oral, Once as needed, prevent ponv, Starting on Tue12/07/19 at 1145, For 1 dose, Pre-Op caffeine tablet 200 mg Given 12/07/2019 12:06 PM OPER[employer] 200 mg 200 mg, oral, Once as needed, pre-op to prevent caffeine withdrawal headache or to enhance emergence from anesthesia/sedation, Starting on Tue12/07/19 at 1145, For 1 dose, Pre-Op, With sips droperidol injection 0.625 mg (INAPSINE) Given 12/07/2019 2:37 PM O[employer] 0.625 mg 0.625 mg, intravenous, Every 6 [...] 25 mcg (SUBLIMAZE) Given 12/07/2019 2:32 PM OPER[employer] 25 mcg 25 mcg, intravenous, Every 2 min PRN, For pain 4 or greater (maximum 100 mcg). If max dose of Fentanyl is reached and if pain is greater than 4, discontinue Fentanyl: give Hydromorphone, Starting on Tue12/07/19 at 1145, Pre-Op ketamine injection 10 mg (KETALAR) Given 12/07/2019 2:37 PM O[employer] 10 mg 10 mg, intravenous, Once as needed, Pain sedation mismatch AND RASS score less than -1, Starting on Tue12/07/19 at 1430, For 1 dose, PACU (only) lactated ringers New Bag 12/07/2019 3:48 PM [employer] 20 mL/hr 20 mL/hr 20 mL/hr, intravenous, Continuous, Starting on Tue12/07/19 at 1400, PACU & Post-Op Continued from OR 12/07/2019 2:25 PM O[employer] 20 mL/hr 20 mL/hr metoprolol tablet 12.5 [...] 2 mg (VERSED) Given 12/07/2019 12:28 PM O[employer] 2 mg 2 mg, intravenous, Once as needed, anxiety, sedation, Starting on Tue12/07/19 at 1145, For 1 dose, Pre-Op ondansetron ODT disintegrating tablet 4 mg Given 12/07/2019 12:0 7 PM [employer] 4 mg (ZOFRAN-ODT) 4 mg, sublingual, Once, On Tue12/07/19 at 1200, For 1 dose, Pre-Op, When splitting ODT at bedside, handle with gloves and a pill splitter to prevent moisture contact. scopolamine base 1 mg Medication Applied 12/07/2019 12:11 PM 1 patch Behind Right over 3 days 1 patch O[employer] Ear (TRANSDERM SCOP) 1 patch, transdermal, Administer [...] Recently Administered Medications Times are shown in OPERATOR [employer]ARF[employer]. Scheduled Medication Order 12/05/2019 12/06/2019 12/07/2019 acetaminophen [...] 1251 (Given - Provider: Gini Garcia APRN, GRAIN ELEVATOR AGENT) 1,250 mg (rounded from 1,146 mg = [...] 1211 (Medication Applied - Provider: Steph Gallo R.N.)3212 (Due: Medication Removed - Provider: Discharge Provider, [...]
--- OUTSIDE RECORDS SUMMARY | 2022-09-09 08:05 | XMS_ITS | Encounter Summary ---
:1965 Author Organization [facility] Address [address] [place] [address] Care Team Providers Name Role Phone Unavailable Primary Care Provider Unavailable Reason for Visit Reason Onset Date Comments Telephone call 04/24/2019 [facility] Encounter Details Date Type Department Care Team Description 04/24/2019 Clinical Communication Department of [facility], Tele phone call Neurology in Nan Bose M.D. ([facility]) [place], [facility] [place], [place] [address] [place] [phone] [place], [place] [phone] (Work) [phone] Social History Tobacco Use Types Packs/Day Years [...] The patient contacted Dr. Henry's office at [facility] for a PFO closure. Depending on your answer would decide if the patient was a candidate for PFO closure. They read your 04/04/18 hospital summary in [facility], but the answer is unclear. Their fax is [phone]. thanks documented in this encounter Plan of Treatment Not on filedocumented as of this encounter Visit Diagnoses Not on filedocumented in this encounter Additional Health Concerns Assessment Noted Time PHQ-9 Depression Total Score: 5 04/05/2019 8:00 AM CDT documented as of this encounter
--- OUTSIDE RECORDS SUMMARY | 2022-09-09 08:05 | XMS_ITS | Encounter Summary ---
:1965 Author Organization [facility] Address [address] [place] [address] Care Team Providers Name Role Phone Unavailable Primary Care Provider Unavailable Reason for Referral Outpatient (Routine) - Closed Specialty Diagnoses / Procedures Referred By Contact Refer red To Contact Neurology Diagnoses Stroke (HCC) Thrombosis Arterial (HCC) Aneurysm Cerebral Unruptured (HCC) Fernie Soriano M.D. [facility] [address] [place] [phone] Referral ID Status Reason Start Date Expiration Date Visits Requ ested Visits Authorized [id number] Closed 03/31/2019 03/30/2020 1 1 Reason for Visit Reason Comments Dizziness Evaluated in [place] with [place] scan. Headache Encounter Details Date Type Department Care Team Description 03/29/2019 - Hospital Encounter [facility] Alfredo Rausch M.D., M.A. [address] [place] [address] Stroke (HCC) (Primary Dx); 03/[facility]/2019 [facility] [address] [place] [phone] Transient Ischemic Attack; [facility], Nan Rios M.D. [address] [place] [phone] Thrombosis Arterial (HCC); [facility], Nicotine Dependence Cigarettes; Second floor Aneurysm Cerebral Unruptured ([facility]) [address] [place] [address] Social History Tobacco Use Types [...] you attend christianity or Patient refused 2021 caodaism services? Do [...] patient, follows with Dr. Estephanie Franz in [place], [place]. Primary Care Provider Phone Number: None [...] and PCP follow-up with Dr. Franz in [place], [place], scheduled for 04/02/2019. - Please be [...] 04/10/2019 2:15 PM Darlin Olmedo M.D. E[facility] RSJolanta Spec TEST RESULTS PENDING AT DISCHARGE [...] speech at the time. She presented to [facility], where MRI/MRA head showed multiple foci [...] was discharged on a weekend, our clinical mri assistant will arrange for PCP follow-up and [...] speech at the time. She presented to [facility], where MRI/MRA head showed multiple foci [...] was discharged on a weekend, our clinical mri assistant will arrange for PCP follow-up and INR checks on Tuesday. RECOMMENDATIONS: - Patient to continue enoxaparin 70 mg (1 mg/kg) BID bridge to warfarin with goal INR 2-3. Patient to receive INR checks and PCP follow-up with Dr. Franz in [place], [place] as soon as possible after discharge. [...] this after visit summary to your appointment(s). [place], [place] April 02, 2019 - Tuesday --12:30 PM - Hospital Follow-Up with Dr. Gold MD, Colleague of Juana Franz MD, primary care provider, at [facility] RECOMMENDATIONS: * April 02, 2019 at 9:30 AM [facility] INR Check * [facility] You may have outpatient appointments at [facility] that changed during your hospitalization. Refer to your [facility] Patient Visit Guide (PVG) for the most current schedule of appointments and detailed instructions of tests/procedures. Call [phone], if you did not receive an PVG or need to CANCEL any [facility] appointment(s). You were discharged from the [...] are intact. There is no dysmetria on ayinry-wm-jbfb and trsb-sc-tmty. There are no abnormal or extraneous movements. [...] next week (to be arranged by clinical mri assistant, in-basket message sent). Will also require [...] --Will arrange for PCP appt (Dr. Franz, [place], [place]) for INR monitoring 04/02 or earliest [...] page the neurology stroke/cerebrovascular disease service pager ([phone]) with any questions orconcerns. Kylie Rubio RRebekah. [...] are intact. There is no dysmetria on rlatjt-dl-xcbi and wjwu-wr-xzxs. There are no abnormal or extraneous movements. [...] Findings discussed at 2:03 p.m with pager [phone] Additional Diagnostic Studies Ecg 12 Lead Result [...] page the neurology stroke/cerebrovascular disease service pager ([phone]) with any questions orconcerns. documented in this [...] the day of presentation and came to [facility], although head CT did not demonstrate [...] developed a headache approximately 45 min later. [place] room was tilting, not spinning, and had [...] dull and mild now. She presented to [facility], where MRI/MRA head showed multiple foci [...] are intact. There is no dysmetria on tnoapa-zd-xsqr and frvz-na-hyxf. There are no abnormal or extraneous movements. [...] Findings discussed at 2:03 p.m with pager [phone] Additional Diagnostic Studies ASSESSMENT / PLAN Ms. [...] Please page the stroke/cerebrovascular neurology service pager ([phone]) for any questions or concerns. STROKE DOCUMENTATION: [...] Prior Function / Occupational Profile Level of [place]: Independent with ADLs and functional transfers, Independent [...] Score: 24 Basic Mobility Standardized Score: 61.14 [facility] 0-100% Score: 0 % Basic Mobility [facility] Modifier: CH INTERPRETATION: Clinicians answer the [...] 53 y.o. female who was seen at [facility] and is being evaluated for Tobacco Use [...] Prior Function / Occupational Profile Level of [place]: Independent with ADLs and functional transfers, Independent [...] be independent with home exercise resistive theraband ([place]) program for left shoulder and elbow (MET) OT Goal #3 Date: 03/30/19 @FLOW12([id number])@ Plan Patient agrees with the plan of [...] living independently in her own apartment in [place] until yesterday morning when she noted the [...] Ms. Mosquera was initially taken to the [facility] where MRI/MRA (images which I reviewed in QREADS) revealed bila teral small areas of restricted diffusion in posterior distribution involving both the cerebellar and occipital lobes. The etiology was presumed embolic and she was transferred to [facility] for further evaluation here. Upon arrival at [facility], Ms. Mosquera was described as alert, in [...] has lived alone in an apartment in [place] for,I believe, 5 years. She is unemployed, [...] tone: Upper and lower extremities 0/0. Coordination: Owouwc-it-auxr was 0/0. Satellite sign was symmetric. Cranial nerves II through XII: Extraocular movements were intact. Visual jhaveri were intact. Ekdk-dq-ouskmfdq decreased hearing acuity bilaterally. Smile symmetric. Tongue [...] diagnostic data. 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 female who presents to the [facility] for evaluation of vertigo and [...] an Emergency Neurology consult note. Please page [phone] with any additional questions. I personally spent [...] CHIEF COMPLAINT/REASON FOR VISIT Dizziness (Evaluated in [place] with CT scan. ) and Headache HISTORY OF PRESENT ILLNESS 53-year-old female who presents from outside facility to [facility] ED with a chief concern of headache [...] She was transported from outside hospital to [facility] for further evaluation management by Neurology [...] do basic arithmetic No visual agnosia No tpmz-ru-aqrlb agnosia Xaumes-tu-xuju normal Trsl-vu-rklt normal Skin: Skin is warm, dry, intact [...] to the emergency department by ambulance from [facility] for evaluation of headache and difficulty with balance. Patient states that she woke up this morning and felt like her body was drunk. She subsequently developed a headache. She was seen at the outside hospital and underwent neuro imaging, laboratory evaluation, EKG testing. She now [facility]. She is currently complaining of fatigue only. Neuro imaging at [place]: MRI head MRA demonstrates multiple foci of [...] speech at the time. She presented to [facility], where MRI/MRA head showed multiple foci [...] was discharged on a weekend, our clinical mri assistant will arrange for PCP follow-up and INR checks on Tuesday. documented in this encounter Plan of Treatment Scheduled Referrals Name Type Priority Associated Order Schedule Diagnoses Neurology - Outpatient Routine Stroke ([facility]) Expected: Cerebrovascular consult Referral Thrombosis 02/2019 (clinic) Arterial ([facility]) (Approximate), Aneurysm Cerebral Expires: Unruptured ([facility]) 03/31/2022 documented as of this encounter Procedures [...] - Routine 03/30/2019 5:32 Results for HOSPITAL ELECTRICAL ENGINEERING DRAFTSPERSON - PM CDT this proc edure MONITORED [...] N/A Computed Tomography ARZ LOS, Neuroradiology [facility] Specimen (Source) Anatomical [...] the ventral aspect (series 6 image s [id number]). The lumen remains significantly irregular and there [...] well seen. The RADHA, MCA, a nd FAMILY RESOURCE COORDINATOR branches are unremarkable in appearance. Stable postoperative [...] the ventral aspect (series 6 image s [id number]). The lumen remains significantly irregular and there [...] well seen. The RADHA, MCA, a nd FAMILY RESOURCE COORDINATOR branches are unremarkable in appearance. Stable postoperative [...] Prothrombin Time (PT/INR) (03/31/2019 8:12 AM CDT) [facility] Method Time Signature Prothrombin 11.5 9.4 - 12.5 03/31/2019 [facility] Time, P sec 8:46 AM CDT [facility] INR 1.0 0.9 - 1.1 03/31/2019 [facility] 8:46 AM CDT [facility] Comment: ----ADDITIONAL INFORMATION---- Standard intensity [...] [facility] - [address] [place], [place] [address] [facility] CBC without Differential (03/31/2019 8:12 AM CDT) [facility] gist Method Time Signature Hemoglobin 12.9 11.6 - 03/31/2019 [facility] 15.0 g/dL 8:37 AM CDT [facility] Hematocrit 39.6 35.5 - 03/31/2019 [facility] 44.9 % 8:37 AM CDT [facility] Erythrocytes 4.06 3.92 - 03/31/2019 [facility] 5.13 8:37 AM CDT LABORATORIES - x10(12)/L [facility] MCV 97.5 78.2 - 03/31/2019 [facility] 97.9 fL 8:37 AM CDT [facility] RBC Distrib Width 13.2 12.2 - 03/31/2019 [facility] 16.1 % 8:37 AM CDT [facility] Platelet Count 256 157 - 371 03/31/2019 [facility] x10(9)/L 8:37 AM CDT LABORATORIES - [facility] Leukocytes 5.3 3.4 - 9.6 03/31/2019 [facility] x10(9)/L 8:37 AM CDT [facility] Specimen Anatomical Collection Method Collection Time Receive d Time (Source) Location / / Volume Laterality Blood (Blood, 03/31/2019 8:12 AM 03/31/20 19 8:31 Venous) CDT AM CDT Trent Ferrer M.D. LAB BLOOD ADD-ON Performing Organization Address City/State/ZIP Code Phon e Number [facility] - [address] [place], [place] [address] [facility] HOLTER MONITOR - HOSPITAL ELECTRICAL ENGINEERING DRAFTSPERSON - MONITORED IN HOSPITAL OR ED DISCHARGE (03/30/2019 5:32 PM CDT) [facility] gist Method Time Signature Recording Date [id number] HOLTER SENTINEL Analysis Date 20,190,510 HOLTER SENTINEL Max Heart Rate 125 bpm HOLTER SENTINEL Max Heart Rate [id number] HOLTER Time SENTINEL Min Heart Rate 46 bpm HOLTER SENTINEL Min Heart Rate [id number] HOLTER Time SENTINEL Mean Heart 71 bpm [...] count HOLTER Hour SENTINEL VE Max Per [id number] HOLTER Hour Time SENTINEL AF Count 0 count HOLTER SENTINEL SVT Runs 0 count HOLTER SENTINEL SVE Total 106 count HOLTER Beats SENTINEL SVE Percent 0 percent HOLTER Beats SENTINEL SVE Max Per 18 count HOLTER Hour SENTINEL SVE Max Per [id number] HOLTER Hour Time SENTINEL Specimen (Source) Anatomical [...] superior vena cava. Patent foramen ovale. ??No ahju-as-pqlbs shunt at atrial level. ??Agitated saline injection(s) performed. ??Small zjwso-bj-jezx shunt a t atrial level at rest and with Valsalva release. Pericardial effusion. ??PROCEDURE ??Max sesophageal echocardiogram performed at the request of the primary cabin service agent. ??Adult probe inserted without difficulty. ??Procedure performed [...] Sedation Narrator or other pertinent record in [facility] for additional procedure and sedation in [...] superior vena cava. Patent foramen ovale. No mrua-ly-xpyls s ballesteros at atrial level. Agitated saline injection(s) performed. Small mqunr-co-sjbs shunt at atrial level at rest and with Valsalva release. Pericardial effusion. PROCEDURE Transeso phageal echocardiogram performed at the request of the primary cabin service agent. Adult pr obe inserted without difficulty. Procedure [...] Sedation Narrator or other pertinent record in [facility] for additional procedure and sedation in formation. Transesophageal echocardiogram completed without complications. For the complete report, see the Order-L evel Documents below. See PDF For Result Trent Ferrer M.D. CV ECHO PROCEDURES Prothrombin Time (PT/INR) (03/30/2019 11:42 AM CDT) [facility] Method Time Signature Prothrombin 11.3 9.4 - 12.5 03/30/2019 [facility] Time, P sec 12:05 PM CDT [facility] INR 1.0 0.9 - 1.1 03/30/2019 [facility] 12:05 PM CDT [facility] Comment: ----ADDITIONAL INFORMATION---- Standard intensity [...] [facility] [facility] - [address] [facility] [place], [place] [address] [facility] ECG 12 Lead (03/30/2019 9:30 AM CDT) P athologist Signature Ventricular Rate 53 BPM MUSE ECG/Min [place] Interval 150 ms MUSE QRSD Interval 84 ms MUSE QT Interval 452 ms MUSE QTC Interval 424 ms MUSE P [place] 7 degrees MUSE R [place] -11 degrees MUSE T Wave [place] 1 degrees MUSE Specimen Anatomical Collection Method [...] Potassium, S 4.1 3.6 - 5.2 03/30/2019 [facility] mmol/L 7:41 AM CDT LABORATORIES - [facility] Sodium, S 141 135 - 145 03/30/2019 [facility] mmol/L 7:41 AM CDT LABORATORIES - [facility] Chloride, S 106 98 - 107 03/30/2019 [facility] mmol/L 7:41 AM CDT LABORATORIES - [facility] Bicarbonate, S 24 22 - 29 03/30/2019 [facility] mmol/L 7:41 AM CDT LABORATORIES - [facility] Anion Gap 11 7 - 15 03/30/2019 [facility] 7:41 AM CDT LABORATORIES - [facility] BUN (Blood Urea 14 6 - 21 03/30/2019 [facility] Nitrogen), S mg/dL 7:41 AM CDT LABORATORIES - [facility] Creatinine 0.73 0.59 - 03/30/2019 [facility] 1.04 mg/dL 7:41 AM CDT [facility] eGFR-Non >90 >=60 03/30/2019 [facility] Black/ mL/min/BSA 7:41 AM CDT LAB[facility]ATORIES [facility] Comment: ----ADDITIONAL INFORMATION---- Estimated GFR calculated using the 2009 CKD_EPI creatinine equation. eGFR-Black/ >90 >=60 mL/min/BSA 03/30/2019 7:41 [facility] CDT [facility] Comment: ----ADDITIONAL INFORMATION---- Estimated GFR calculated using the 2009 CKD_EPI creatinine equation. Calcium, Total, S 8.9 8.6 - 10.0 mg/dL 03/30/2019 7:41 AM [facility] CDT [facility] S Glucose, S 100 70 - 140 mg/dL 03/30/2019 7:41 AM [facility] CDT LAB[facility]ATORIES [facility] S Specimen Anatomical Collection Method Collection Time Receive d Time (Source) Location / / Volume Laterality Blood (Blood, 03/30/2019 6:21 AM 03/30/20 19 6:52 Venous) CDT AM CDT Trent Ferrer M.D. LAB BLOOD ADD-ON Performing Organization Address City/State/ZIP Code Phon e Number [facility] - [address] (ABNORMAL) CBC without Differential (03/30/2019 6:21 AM CDT) [facility] Method Time Signature Hemoglobin 12.5 11.6 - 03/30/2019 [facility] 15.0 g/dL 6:54 AM CDT [facility] Hematocrit 37.9 35.5 - 03/30/2019 [facility] 44.9 % 6:54 AM CDT [facility] Erythrocytes 3.87 (L) 3.92 - 03/30/2019 [facility] 5.13 6:54 AM CDT LABORATORIES - x10(12)/L [facility] MCV 97.9 78.2 - 03/30/2019 [facility] 97.9 fL 6:54 AM CDT [facility] RBC Distrib 13.5 12.2 - 03/30/2019 [facility] Width 16.1 % 6:54 AM CDT LABORATORIES - [facility] Platelet Count 245 157 - 371 03/30/2019 [facility] x10(9)/L 6:54 AM CDT [facility] - [facility] Leukocytes 4.1 3.4 - 9.6 03/30/2019 [facility] x10(9)/L 6:54 AM CDT LABORATORIES - [facility] Specimen Anatomical Collection Method Collection Time Receive d Time (Source) Location / / Volume Laterality Blood (Blood, 03/30/2019 6:21 AM 03/30/20 19 6:44 Venous) CDT AM CDT Trent Ferrer M.D. LAB BLOOD ADD-ON Performing Organization Address City/[facility] Phon e Number [facility] - [address] [place] [address] [facility] Coagulation Factor II Activity Assay (03/30/2019 6:20 AM CDT) athologist Signature Coag Factor II 93 75 - 145 % 03/30/2019 [facility] Assay, P 11:53 AM CDT [facility] Comment: ----ADDITIONAL INFORMATION---- This test has been modified from the vardaman treyacturer's instructions. Its performance characteri stics were determined by [facility] in a manner co nsistent with CLIA requirements. This test has not bee n cleared or approved by the U.S. Food and Drug Admin istration. Specimen Anatomical Collection Method Collection Time Receive d Time (Source) Location / / Volume Laterality Blood 03/30/2019 6:20 AM 9 CDT 11:12 AM CDT Ternt Ferrer M.D. LAB BLOOD ADD-ON Performing Organization Address City/[facility] Phon e Number [facility] - [address] [place] [address] [facility] Protein S Antigen, Total (03/30/2019 6:20 AM CDT) athologist Signature Protein S Ag, 91 80 - 160 % 03/30/2019 [facility] Total, P 11:04 AM CDT [facility] Comment: ----ADDITIONAL INFORMATION---- This test has been modified from the vardaman ufacturer's instructions. Its performance characteri stics were determined by [facility] in a manner co nsistent with CLIA requirements. This test has not bee n cleared or approved by the U.S. Food and Drug Admin istration. Specimen Anatomical Collection Method Collection Time Receive d Time (Source) Location / / Volume Laterality Blood 03/30/2019 6:20 AM 9 7:17 CDT AM CDT Trent Ferrer M.D. LAB BLOOD NON ADD-ON Performing Organization Address City/[facility]/ZIP [facility] Phon e Number [facility] - [address] [place], [place] [address] [facility] Reptilase Time, Plasma (03/30/2019 6:20 AM CDT) athologist Signature Reptilase 17 14 - 23 03/30/2019 [facility] Time, P sec 9:49 AM CDT [facility] Comment: ----ADDITIONAL INFORMATION---- This test has been modified from the kyle cordovar's instructions. Its performance characteri stics were determined by [facility] in a manner co nsistent with CLIA requirements. This test has not bee n cleared or approved by the U.S. Food and Drug Admin istration. Specimen Anatomical Collection Method Collection Time Receive d Time (Source) Location / / Volume Laterality Blood 03/30/2019 6:20 AM 9 7:17 CDT AM CDT Trent Ferrer M.D. LAB BLOOD ADD-ON Performing Organization Address City/[facility] Phon e Number [facility] - [address] [place], [place] [address] [facility] (ABNORMAL) APTT Mix 1:1 (03/30/2019 6:20 AM CDT) P athologist Signature APTT Mix 1:1 42 (H) 26 - 36 03/30/2019 [facility] sec 9:49 AM CDT [facility] Comment: ----ADDITIONAL INFORMATION---- This test has been modified from the kyle yangacturer's instructions. Its performance characteri stics were determined by [facility] in a manner co nsistent with CLIA requirements. This test has not bee n cleared or approved by the U.S. Food and Drug Admin istration. Specimen Anatomical Collection Method Collection Time Receive d Time (Source) Location / / Volume Laterality Blood 03/30/2019 6:20 AM 9 7:17 CDT AM CDT Trent Ferrer M.D. LAB BLOOD ADD-ON Performing Organization Address [facility] Phon e Number [facility] - [address] [place] [address] [facility] Heparin Anti-Xa Assay (03/30/2019 6:20 AM CDT) athologist Signature Heparin 0.38 IU/mL 03/30/2019 [facility] Anti-Xa, P 7:12 AM CDT [facility] Comment: UFH therapeutic range: ?? [...] LAB BLOOD NON ADD-ON Performing Organization Address City/[facility]/ZIP Code Phon e Number [facility] - [address] [place] [address] [facility] Beta-2 Glycoprotein 1 Antibodies, IgG and IgM (03/30/2019 6:20 AM CDT) athologist Signature Beta 2 GP1 Ab <9.4 <15.0 03/30/2019 [facility] IgG, S (Negative) 7:[address] U/mL [facility] Beta 2 GP1 Ab <9.4 <15.0 03/30/2019 [facility] IgM, S (Negative) 7:[address] U/mL [facility] Specimen Anatomical Collection Method Collection Time Receive d Time (Source) Location / / Volume Laterality Blood (Blood, 03/30/2019 6:20 AM 03/30/20 19 9:55 Venous) CDT AM CDT Trent Ferrer M.D. LAB BLOOD ADD-ON Performing Organization Address City/State/ZIP Code Phon e Number [facility] [address] [place] [address] [facility] Phospholipid (Cardiolipin) Antibodies, IgG and IgM (03/30/2019 6:20 AM CDT) P athologist Signature Phospholipid Ab <9.4 <15.0 03/30/2019 [facility] IgM, S (Negative) 3:49 PM CDT ENERGY MPL [facility] Phospholipid Ab <9.4 <15.0 03/30/2019 [facility] IgG, S (Negative) 3:49 PM CDT ENERGY GPL [facility] Specimen Anatomical Collection Method Collection Time Receive d Time (Source) Location / / Volume Laterality Blood (Blood, 03/30/2019 6:20 AM 03/30/20 19 9:55 Venous) CDT AM CDT Trent Ferrer M.D. LAB BLOOD ADD-ON Performing Organization Address City/[facility]/ZIP Code Phon e Number [facility] [address] [place], [place] [address] [facility] (ABNORMAL) Thrombophilia Profile (03/30/2019 6:20 AM CDT) Patholo gist Method Time Signature Prothrombin Time 10.9 10.3 - 03/30/2019 [facility] (PT), P 12.8 sec 9:35 AM CDT LABORATORIES - [facility] INR 1.0 03/30/2019 [facility] 9:35 AM CDT LAB[facility]ATORIES - [facility] Activated 57 (H) 26 - 36 03/30/2019 [facility] Partial sec 9:46 AM CDT LABORATORIES - Thrombopl Time, [facility] DRVVT Screen 0.7 0.0 - 1.1 03/30/2019 [facility] Ratio ratio 9:35 AM CDT LABORATORIES - [facility] Thrombin Time 73 (H) 15 - 23 03/30/2019 [facility] (Bovine), P sec 9:46 AM CDT LABORATORIES - [facility] Comment: ----ADDITIONAL INFORMATION---- This test has been modified from the man ufacturer's instructions. Its performance characteri stics were determined by [facility] in a manner co nsistent with CLIA requirements. This test has not bee n cleared or approved by the U.S. Food and Drug Admin istration. Fibrinogen, P 276 200 - 430 mg/dL 03/30/2019 10:04 AM CDT [facility] Comment: ----ADDITIONAL INFORMATION---- This test has been modified from the [employer] [place] [employer]'s instructions. Its performance characteri stics were determined by [facility] in a manner co nsistent with CLIA requirements. This test has not bee n cleared or approved by the U.S. Food and Drug Admin istration. Fibrinogen 0.26 0.00 - 0.50 03/30/2019 12:44 PM [facility] Equivalent Units mcg/mL U T [facility] (FE) [facility] D-Dimer Units (DDU) 130 0 - 250 ng/mL 03/30/2019 12:44 PM [facility] D-Dimer [facility] Soluble Fibrin <8 0.0 - 7.9 mcg/mL 03/30/2019 1:19 PM [facility] Monomer T [facility] Comment: ----ADDITIONAL INFORMATION---- This test was developed and its performa nce characteristics determined by [facility] in a manner co nsistent with CLIA requirements. This test has not bee n cleared or approved by the U.S. Food and Drug Admin istration. Antithrombin Activity, 99 80 - 130 % 03/30/2019 10:05 AM [facility] P T [facility] Comment: ----ADDITIONAL INFORMATION---- This test has been modified from the [employer] [place] [employer]'s instructions. Its performance characteri stics were determined by [facility] in a manner co nsistent with CLIA requirements. This test has not bee n cleared or approved by the U.S. Food and Drug Admin istration. Protein C Activity, P 131 70 - 150 % 03/30/2019 9:33 A M T [facility] [place] Comment: ----ADDITIONAL INFORMATION---- This test has been modified from the [employer] [place] [employer]'s instructions. Its performance characteri stics were determined by [facility] in a manner co nsistent with CLIA requirements. This test has not bee n cleared or approved by the U.S. Food and Drug Admin istration. Protein S Ag, Free, 59 (L) 65 - 160 % 03/30/2019 10:19 AM [facility] P CDT LABORATORIES - [facility] Chloe Comment: ----ADDITIONAL INFORMATION---- This test has been modified from the [employer]'s instructions. Its performance characteri stics were determined by [facility] in a manner co nsistent with CLIA requirements. This test has not bee n cleared or approved by the U.S. Food and Drug Admin istration. APCRV Ratio 3.0 >or=2.3 03/30/2019 10:11 [facility] AM CDT LABORATORIES [facility] Prothrombin [id number] Negative Negative 04/02/2019 5:19 [facility] Mutation, B PM CDT LABORATORIES [facility] PTNT Reviewed By Lewis Moreno, 04/02/2019 5:19 [facility] MBBS CDT LABORATORIES [facility] PTNT Interpretation This individual DOES NOT hav e the Prothrombin [id number] mutation. Although the 04/02/2019 5:19 [facility] Prothrombin [id number] mutation is absent, the chloe kang may have other genetic CDT LABORATORIES - and environmental risk factors for thrombosis. Alanna rosa genetic consultation [facility] and counseling of potentially affected family members [facility] testing. Comment: ----ADDITIONAL INFORMATION---- This test is a direct mutation analysis using PCR amplification, signal generation and release by cleavage of se quence specific alleles ([employer], [employer], [place], [place]). This test has been modified from the [employer] [place] [employer]'s instructions. Its performance characteristics were determi jayesh by [facility] in a manner consistent with CLIA requirements. This test has not been cleared or approved by the U.S. Food and Drug Administration . Reviewed by: Milad Emerson M.D. 04/03/2019 1:35 PM [facility] CDT LABORATORIES [facility] Interpretation ?Type of Study: ?? Thrombophilia Profile 04/03/2019 1:35 PM [facility] ?IMPRESSION: ??1) Decreased protein S free antigen, a cquired versus CDT LABORATORIES - congenital. ??See comments and suggest clinical correlation. [facility] ?2) Data are consistent with the [...] patient does n ot have the prothrombin [id number] mutation. ?Separately performed and reported testing for beta-2 glycoprotein I and anticardiolipin antibodies (IgG and IgM isotypes) demonstrat ed normal results, providing no evidence of antiphospholipid antibodie s by these methodologies. Specimen Anatomical Collection Method Collection Time Receive d Time (Source) Location / / Volume Laterality Blood (Blood, 03/30/2019 6:20 AM 03/30/20 19 8:13 Venous) CDT AM CDT Narrative [facility] - 04/03/2019 1:37 PM CDT Specimen Information: Specimen ID: [id number] Specimen Type: Blood Specimen Collection Start Date: 9 ??6:20 AM Specimen Received Date: 03/30/2019 ??8:13 AM Specimen ID: [id number] Specimen Type: Blood Specimen Collection Start Date: ??6:20 AM Specimen Received Date: 03/30/2019 ??7:17 AM Specimen ID: [id number] Specimen Type: Blood Specimen Collection Start Date: ??6:20 AM Specimen Received Date: 03/30/2019 ??7:17 AM Specimen ID: [id number] Specimen Type: Blood Specimen Collection Start Date: ??6:20 AM Specimen Received Date: 03/30/2019 ??7:17 AM Specimen ID: [id number] Specimen Type: Blood Specimen Collection Start Date: ??6:20 AM Specimen Received Date: 03/30/2019 ??7:17 AM Specimen ID: [id number] Specimen Type: Blood Specimen Collection Start Date: ??6:20 AM Specimen Received Date: 03/30/2019 ??7:17 AM Trent Ferrer M.D. LAB BLOOD NON ADD-ON Performing Organization Address City/State/ZIP Code Phon e Number [address] [address] [facility] Heparin Anti-Xa Assay (03/29/2019 11:28 PM CDT) P athologist Signature Heparin 0.31 IU/mL 03/30/2019 [facility] Anti-Xa, P 12:05 AM CDT LABORATORIES [facility] Comment: UFH therapeutic range: ?? [...] LAB BLOOD NON ADD-ON Performing Organization Address City/[facility] Phon e Number [facility] LABORATORIES - [address] [address] [facility] Hemoglobin A1c (03/29/2019 6:05 PM CDT) Analysis Performed At Path logist Time Signature Hemoglobin A1c, 5.6 4.0 - 5.6 03/29/2019 [facility] B % 6:50 PM CDT [facility] Specimen Anatomical Collection Method Collection Time Receive d Time (Source) Location / / Volume Laterality Blood (Blood, 03/29/2019 6:05 PM 03/29/20 19 6:28 Venous) CDT PM CDT Trent Ferrer M.D. LAB BLOOD ADD-ON Performing Organization Address City/[facility] Phon e Number [facility] LABORATORIES - [address] [address] [facility] (ABNORMAL) Lipid Panel (03/29/2019 6:05 PM CDT) [facility]ist Method Time Signature Cholesterol, 204 (H) mg/dL 03/29/2019 [facility] Total 7:09 PM CDT [facility] Comment: ----REFERENCE VALUE---- Desirable: < 200 Borderline high: 200 - 239 High: > or = 240 Triglycerides 104 mg/dL 03/29/2019 7:09 PM CDT [facility] Comment: ----REFERENCE VALUE---- Normal: <150 Borderline high: 150-199 High: 200-499 Very high: > or =500 Cholesterol, HDL, S 91 >=50 mg/dL 03/29/2019 7:09 PM CDT [facility] Calculated LDL 92 mg/dL 03/29/2019 7:09 PM CDT [facility] Comment: ----REFERENCE VALUE---- Desirable: <100 Above Desirable: 100-129 Borderline high: 130-159 High: 160-189 Very high: > or =190 Cholesterol, Non-HDL, 113 mg/dL 03/29/2019 7:0 9 PM CDT [facility] LAB[facility]ATORIES Calculated - [facility] Comment: ----REFERENCE VALUE---- Desirable: <130 Above Desirable: 130-159 Borderline high: 160-189 High: 190-219 Very high: > or =220 Specimen Anatomical Collection Method Collection Time Receive d Time (Source) Location / / Volume Laterality Blood (Blood, 03/29/2019 6:05 PM 03/29/20 19 6:28 Venous) CDT PM CDT Trent Ferrer M.D. LAB BLOOD ADD-ON Performing Organization Address City/[facility] Code Phon e Number [facility] - [address] S-TSH (Thyroid-Stimulating Hormone - Sensitive) (03/29/2019 6:05 PM CDT) athologist Signature TSH, Sensitive 1.6 0.3 - 4.2 03/29/2019 [facility] mIU/L 7:09 PM CDT [facility] Specimen Anatomical Collection Method Collection Time Receive d Time (Source) Location / / Volume Laterality Blood (Blood, 03/29/2019 6:05 PM 03/29/20 19 6:28 Venous) CDT PM CDT Trent Ferrer M.D. LAB BLOOD ADD-ON Performing Organization Address City/[facility]/ZIP Code Phon e Number [facility] LABORATORIES - [address] APTT (Activated Partial Thromboplastin Time) (03/29/2019 4:46 PM CDT) athologist Signature Activated 29 25 - 37 03/29/2019 [facility] Partial sec 5:01 PM CDT LABORATORIES [facility] Specimen Anatomical Collection Method Collection Time Receive d Time (Source) Location / / Volume Laterality Blood (Blood, 03/29/2019 4:46 PM 03/29/20 19 4:52 Venous) CDT PM CDT Trent Ferrer M.D. LAB BLOOD ADD-ON Performing Organization Address City/[facility]/ZIP Code Phon e Number [facility] LAB[facility]ATORIES - [address] Head Neck Angiogram with IV [...] gs discussed at 2:03 p.m with pager [phone] Narrative 03/29/2019 4:34 PM CDT EXAM: CT [...] gs discussed at 2:03 p.m with pager [phone] Eliseo Mejias M.D. IMG CT PROCEDURES CT [...] gs discussed at 2:03 p.m with pager [phone] Narrative 03/29/2019 4:34 PM CDT EXAM: CT [...] gs discussed at 2:03 p.m with pager [phone] Eliseo Mejias M.D. IMGeronimo CT PROCEDURES (ABNORMAL) CBC with Differential, Blood (03/29/2019 2:04 PM CDT) [facility] Method Time Signature Hemoglobin 12.4 11.6 - 03/29/2019 [facility] 15.0 g/dL 2:11 PM CDT LABORATORIES - [facility] Hematocrit 37.0 35.5 - 03/29/2019 [facility] 44.9 % 2:11 PM CDT LABORATORIES - [facility] Erythrocytes 3.79 (L) 3.92 - 03/29/2019 [facility] 5.13 2:11 PM CDT LABORATORIES - x10(12)/L [facility] MCV 97.6 78.2 - 03/29/2019 [facility] 97.9 fL 2:11 PM CDT LABORATORIES - [facility] RBC Distrib 13.3 12.2 - 03/29/2019 [facility] Width 16.1 % 2:11 PM CDT LABORATORIES - [facility] Platelet Count 238 157 - 371 03/29/2019 [facility] x10(9)/L 2:11 PM CDT LABORATORIES - [facility] Leukocytes 4.7 3.4 - 9.6 03/29/2019 [facility] x10(9)/L 2:11 PM CDT LABORATORIES - [facility] Neutrophils 2.33 1.56 - 03/29/2019 [facility] 6.45 2:11 PM CDT LABORATORIES - x10(9)/L [facility] Lymphocytes 1.74 0.95 - 03/29/2019 [facility] 3.07 2:11 PM CDT LABORATORIES - x10(9)/L [facility] Monocytes 0.32 0.26 - 03/29/2019 [facility] 0.81 2:11 PM CDT LABORATORIES - x10(9)/L [facility] Eosinophils 0.22 0.03 - 03/29/2019 [facility] 0.48 2:11 PM CDT LABORATORIES - x10(9)/L [facility] Basophils 0.04 0.01 - 03/29/2019 [facility] 0.08 2:11 PM CDT LABORATORIES - x10(9)/L [facility] Specimen Anatomical Collection Method Collection Time Receive d Time (Source) Location / / Volume Laterality Blood (Blood, 03/29/2019 2:04 PM 03/29/20 19 2:08 Venous) CDT PM CDT Eliseo Mejias M.D. LAB BLOOD ADD-ON Performing Organization Address City/State/ZIP Code [facility] e Number [facility] LABORATORIES - [address] [place], [place] [address] [facility] Basic Metabolic Panel (03/29/2019 2:04 PM CDT) Analysis Performed At Patho logist Time Signature Potassium, P 4.0 3.6 - 5.2 03/29/2019 [facility] mmol/L 2:24 PM CDT [facility] Sodium, P 142 135 - 145 03/29/2019 [facility] mmol/L 2:24 PM CDT LABORATORIES [facility] Chloride, P 107 98 - 107 03/29/2019 [facility] mmol/L 2:24 PM CDT LABORATORIES [facility] Bicarbonate, P 24 22 - 29 03/29/2019 [facility] mmol/L 2:24 PM CDT LABORATORIES [facility] Anion Gap, P 11 7 - 15 03/29/2019 [facility] 2:24 PM CDT [facility] BUN (Blood Urea 17 6 - 21 03/29/2019 [facility] Nitrogen), P mg/dL 2:24 PM T [facility] Creatinine 0.81 0.59 - 03/29/2019 [facility] 1.04 mg/dL 2:24 PM T [facility] eGFR-Black/Afri >90 >=60 03/29/2019 [facility] can Ivorian mL/min/BSA 2:24 PM T [facility] Comment: ----ADDITIONAL INFORMATION---- Estimated GFR calculated using the 2009 CKD_EPI creatinine equation. eGFR Non-Black/ 82 >=60 mL/min/BSA 03/29/2019 2:24 PM [facility] Ivorian T [facility] Comment: ----ADDITIONAL INFORMATION---- Estimated GFR calculated using the 2009 CKD_EPI creatinine equation. Calcium, Total, P 8.7 8.6 - 10.0 mg/dL 03/29/2019 2:24 PM [facility] CDT [facility] Glucose, P 101 70 - 140 mg/dL 03/29/2019 2:24 [facility] Specimen Anatomical Collection Method Collection Time Receive d Time (Source) Location / / Volume Laterality Blood (Blood, 03/29/2019 2:04 PM 03/29/20 2:08 Venous) CDT PM CDT Eliseo Mejias M.D. LAB BLOOD ADD-ON Performing Organization Address City/State/ZIP Code Phon e Number [facility] LABORATORIES - [address] [place], [place] [address] [facility] documented in this encounter Visit Diagnoses Diagnosis [...] (COMPAZINE) (COMPLETE D) 1402 (Given - Provider: sIaura Nielsne R.N.) 10 mg, intravenous, Once, On Tue03/29/19 [...] R .N.)1315 (Given - Provider: Julieth Whitt R.N.)6335 (Given - Provider: Marlene D Salwey, R.N.) [...]
--- OUTSIDE RECORDS SUMMARY | 2022-09-09 08:05 | XMS_ITS | Encounter Summary ---
:1965 Author Organization [facility] Address [address] [place] [address] Care Team Providers Name Role Phone Unavailable [...] you attend baptism or Patient refused 2021 voodoo services? Do [...]
--- OUTSIDE RECORDS SUMMARY | 2022-09-09 08:05 | XMS_ITS | Encounter Summary ---
:1965 Author Organization [facility] Address [address] [place] [address] Care Team Providers Name Role Phone Unavailable Primary Care Provider Unavailable Encounter Details Date Type Department Care Team Description 04/04/2019 - Hospital Encounter [facility] Blanca, Stroke ([facility]) (Primary Dx); 04/05/2019 [place] [facility] [place] M.D. Decline Functional Status; [facility], [address] [place] [address] Second floor [phone] [place] [address] [place], [place] (Work) [phone] Social History Tobacco Use [...] you attend spiritism or Patient refused 2021 yazdanism services? Do [...] up with your primary care provider in [place], [place] for ongoing monitoring of this. - Follow-up in [facility] (Dr. Diehl) in approximately 3 months??? [...] use disorder who initially was admitted to [facility] from 03/29/2019 to 03/31/2019 after presenting [...] use disorder who initially was admitted to [facility] from 03/29/2019 to 03/31/2019 after presenting [...] up with your primary care provider in [place], [place] for ongoing monitoring of this. - Follow-up in [facility] (Dr. Diehl) in approximately 3 months??? [...] only on level surfaces with therapist managing swat team member while inpatient. Stairs not assessed. RECOMMENDATIONS: Recommend [...] by Jessie Candelario P.T., D.P.T. Contact information: [facility], [address] Beryl Gaytan, Laquita Guardado - 04/05/2019 7:21 AM CDT Take a copy of this after visit summary to your appointment(s). [place], [place] April 10, 2019 -Tuesday --11:15 AM - Hospital Follow-Up with Dr. Rosalva MD Colleague of Juana Franz MD primary care provider, at [facility] RECOMMENDATIONS: * * [facility] You may have outpatient appointments at [facility] that changed during your hospitalization. Refer to your [facility] Patient Visit Guide (PVG) for the most current schedule of appointments and detailed instructions of tests/procedures. Call [phone], if you did not receive an PVG or need to CANCEL any [facility] appointment(s). You were discharged from the [...] No acute overnight events. Vertigo has improved. Nwrh-gy-iidpxkbs headache continues. No new symptoms or concerns. [...] use disorder who initially was admitted to [facility] from 03/29/2019 to 03/31/2019 after presenting [...] being followed by a provider at the [facility]. Dose was increased to 1.5 tabs (of [...] Noted ??? Rhinosinusitis Chronic 03/01/2019 ??? Stroke ([facility]) 03/29/2019 ??? Anxiety Generalized Disorder 03/29/2019 ??? Chronic Pain Syndrome 03/29/2019 ??? Fibromyalgia 03/29/2019 ??? 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 Sinusitis Recurrent 03/29/2019 ??? 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 Nicotine Dependence Cigarettes 03/29/2019 ??? 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 Transient Ischemic Attack ??? Aneurysm Cerebral Unruptured ([facility]) 03/30/2019 ??? Patent Foramen Ovale ([facility]) 03/31/2019 Current Facility-Administered Medications: ??? acetaminophen tablet [...] spray, each nostril, Daily at bedtime, Clemente Aikne M.D., 2 spray at 04/04/19 2209 ??? [...] ??? warfarin management (COUMADIN), , oral, Daily, Clemenet Aiken M.D. ??? warfarin tablet 7.5 mg [...] no new changes. MRI may not change control analyst at this point as she is now [...] 0 and symmetric in all muscle groups. Ksuuqm-zhob-limlnz and heel- montes testing is normal. Deep [...] clarify this, but would not necessarily change control analyst. An MRI brain with and without contrast [...] baseline. Have triaged to therapy only; no chemical research technician consult appears to be necessary at this time. If at any time, the therapists or referring service feel that a chemical research technician review is necessary, please send a new [...] Prior Function / Occupational Profile Level of Vance: Independent with ADLs and functional transfers Lives [...] Goal Met 04/05/19 Progress: Improving as expected @[id number])@ Plan Patient agrees with the plan of [...] Prior Function / Occupational Profile Level of Vance: Independent with ADLs and functional transfers Lives [...] for safety and for therapist to bring swat team member, no obvious loss of balance noted, patient appeared steady with quick turns Training/Intervention: supervision for therapist to bring swat team member Response: Patient mobilizing 200+ meters with no [...] for safety and for therapist to bring swat team member, no obvious loss of balance noted, patient appeared steady with quick turns Training/Intervention: supervision for therapist to bring swat team member Response: Patient mobilizing 200+ meters with no [...] M.D. - 04/05/2019 1:24 PM CDT Ms. Mosquear is a 53-year-old woman with past medical history significant for gastric bypass surgery (1999) with laparoscopic redo (2006), chronic esophageal spasm and dysmotility, recurrent sinus infections, bilateral occipital neuralgia, cervical spondylosis status post fusion, chronic pain syndrome, fibromyalgia, and nicotine use disorder who initially was admitted to [facility] from 03/29/2019 to 03/31/2019 after presenting [...] Potassium, S 4.1 3.6 - 5.2 04/05/2019 [facility] mmol/L 9:28 AM CDT LAB[facility]ATORIES - [facility] Sodium, S 142 135 - 145 04/05/2019 [facility] mmol/L 9:28 AM CDT [facility] - [facility] Chloride, S 105 98 - 107 04/05/2019 [facility] mmol/L 9:28 AM CDT [facility] - [facility] Bicarbonate, S 25 22 - 29 04/05/2019 [facility] mmol/L 9:28 AM CDT [facility] - [facility] Anion Gap 12 7 - 15 04/05/2019 [facility] 9:28 AM CDT [facility] - [facility] BUN (Blood Urea 20 6 - 21 04/05/2019 [facility] Nitrogen), S mg/dL 9:28 AM CDT [facility] Creatinine 0.88 0.59 - 04/05/2019 [facility] 1.04 mg/dL 9:28 AM CDT LABORATORIES [facility] eGFR-Non 74 >=60 04/05/2019 [facility] Black/ mL/min/BSA 9:28 AM CDT LABORATORIES [facility] Comment: ----ADDITIONAL INFORMATION---- Estimated GFR calculated using the 2009 CKD_EPI creatinine equation. eGFR-Black/ 86 >=60 mL/min/BSA 04/05/2019 9:28 [facility] CDT LABORATORIES [facility] Comment: ----ADDITIONAL INFORMATION---- Estimated GFR calculated using the 2009 CKD_EPI creatinine equation. Calcium, Total, S 9.2 8.6 - 10.0 mg/dL 04/05/2019 9:28 AM [facility] Glucose, S 124 70 - 140 mg/dL 04/05/2019 9:28 AM [facility] CDT [facility] Specimen Anatomical Collection Method Collection Time Receive d Time (Source) Location / / Volume Laterality Blood (Blood, 04/05/2019 8:07 AM 04/05/20 19 8:26 Venous) CDT AM CDT Clemente Aiken M.D. LAB BLOOD ADD-ON Performing Organization Address City/State/ZIP Code Phon e Number [facility] LABORATORIES - [address] [place] [address] 05 [facility] CBC with Differential, Blood (04/05/2019 8:07 AM CDT) [facility] Method Time Signature Hemoglobin 12.9 11.6 - 04/05/2019 [facility] 15.0 g/dL 8:38 AM CDT LABORATORIES [facility] Hematocrit 38.0 35.5 - 04/05/2019 [facility] 44.9 % 8:38 AM CDT LABORATORIES [facility] Erythrocytes 3.94 3.92 - 04/05/2019 [facility] 5.13 8:38 AM CDT LABORATORIES - x10(12)/L [facility] MCV 96.4 78.2 - 04/05/2019 [facility] 97.9 fL 8:38 AM CDT LABORATORIES [facility] RBC Distrib Width 13.2 12.2 - 04/05/2019 [facility] 16.1 % 8:38 AM CDT [facility] - [facility] Platelet Count 226 157 - 371 04/05/2019 [facility] x10(9)/L 8:38 AM CDT [facility] - [facility] Leukocytes 5.5 3.4 - 9.6 04/05/2019 [facility] x10(9)/L 8:38 AM CDT [facility] - [facility] Neutrophils 3.00 1.56 - 04/05/2019 [facility] 6.45 8:38 AM CDT LABORATORIES - x10(9)/L [facility] Lymphocytes 1.84 0.95 - 04/05/2019 [facility] 3.07 8:38 AM CDT LABORATORIES - x10(9)/L [facility] Monocytes 0.37 0.26 - 04/05/2019 [facility] 0.81 8:38 AM CDT LABORATORIES - x10(9)/L [facility] Eosinophils 0.22 0.03 - 04/05/2019 [facility] 0.48 8:38 AM CDT LABORATORIES - x10(9)/L [facility] Basophils 0.05 0.01 - 04/05/2019 [facility] 0.08 8:38 AM CDT LABORATORIES - x10(9)/L [facility] Specimen Anatomical Collection Method Collection Time Receive d Time (Source) Location / / Volume Laterality Blood (Blood, 04/05/2019 8:07 AM 04/05/20 19 8:26 Venous) CDT AM CDT Clemente Aiken M.D. LAB BLOOD ADD-ON Performing Organization Address City/State/ZIP Code Phon e Number [facility] LABORATORIES - [address] [place], [place] [address] [facility] (ABNORMAL) Prothrombin Time (PT/INR) (04/05/2019 8:07 AM CDT) [facility] gist Method Time Signature Prothrombin 21.9 (H) 9.4 - 04/05/2019 [facility] Time, P 12.5 sec 8:44 AM CDT LABORATORIES [facility] INR 2.0 0.9 - 1.1 04/05/2019 [facility] 8:44 AM CDT LABORATORIES [facility] Comment: ----ADDITIONAL INFORMATION---- Standard intensity warfarin [...] MEDICAL CENTER LABORATORIES - [address] [place], [place] [address] [facility] CT Head Neck Angiogram with [...] CDT) athologist Signature Heparin 0.81 IU/mL 04/04/2019 [facility] Anti-Xa, P 7:40 PM CDT [facility]ATORIES - [facility] Comment: UFH therapeutic range: ?? [...] NON ADD-ON Performing Organization Address [facility] Phon e Number [facility] LABORATORIES - [address] [place], [place] [address] [facility] (ABNORMAL) Prothrombin Time (PT/INR) (04/04/2019 5:25 PM CDT) [facility] Method Time Signature Prothrombin 20.1 (H) 9.4 - 04/04/2019 [facility] Time, P 12.5 sec 5:54 PM CDT LABORATORIES [facility] INR 1.8 0.9 - 1.1 04/04/2019 [facility] 5:[address] [facility] - [facility] Comment: ----ADDITIONAL INFORMATION---- Standard intensity warfarin therapeutic range: 2.0 to 3.0 ?? High intensity warfarin therapeutic rang e: 2.5 to 3.5 Specimen Anatomical Collection Method Collection Time Receive d Time (Source) Location / / Volume Laterality Blood (Blood, 04/04/2019 5:25 PM 04/04/20 19 5:32 Venous) CDT PM CDT Clemente Aiken M.D. LAB BLOOD ADD-ON Performing Organization Address [facility] Phon e Number [facility] LABORATORIES - [address] [place] [address] [facility] (ABNORMAL) CBC with Differential, Blood (04/04/2019 5:25 PM CDT) [facility] Method Time Signature Hemoglobin 12.1 11.6 - 04/04/2019 [facility] 15.0 g/dL 5:35 PM CDT [facility] Hematocrit 36.3 35.5 - 04/04/2019 [facility] 44.9 % 5:35 PM CDT [facility] Erythrocytes 3.76 (L) 3.92 - 04/04/2019 [facility] 5.13 5:35 PM CDT LABORATORIES - x10(12)/L [facility] MCV 96.5 78.2 - 04/04/2019 [facility] 97.9 fL 5:35 PM CDT LAB[facility]ATORIES - [facility] RBC Distrib 12.9 12.2 - 04/04/2019 [facility] Width 16.1 % 5:35 PM CDT [facility] - [facility] Platelet Count 224 157 - 371 04/04/2019 [facility] x10(9)/L 5:35 PM CDT [facility] - [facility] Leukocytes 4.6 3.4 - 9.6 04/04/2019 [facility] x10(9)/L 5:35 PM CDT [facility] - [facility] Neutrophils 2.09 1.56 - 04/04/2019 [facility] 6.45 5:35 PM CDT LABORATORIES - x10(9)/L [facility] Lymphocytes 1.88 0.95 - 04/04/2019 [facility] 3.07 5:35 PM CDT LABORATORIES - x10(9)/L [facility] Monocytes 0.39 0.26 - 04/04/2019 [facility] 0.81 5:35 PM CDT LABORATORIES - x10(9)/L [facility] Eosinophils 0.18 0.03 - 04/04/2019 [facility] 0.48 5:35 PM CDT LABORATORIES - x10(9)/L [facility] Basophils 0.04 0.01 - 04/04/2019 [facility] 0.08 5:35 PM CDT LABORATORIES - x10(9)/L [facility] Specimen Anatomical Collection Method Collection Time Receive d Time (Source) Location / / Volume Laterality Blood (Blood, 04/04/2019 5:25 PM 04/04/20 19 5:32 Venous) CDT PM CDT Clemente Aiken M.D. LAB BLOOD ADD-ON Performing Organization Address City/State/ZIP Code Phon e Number [facility] LABORATORIES - [address] [place], [place] [address] [facility] (ABNORMAL) APTT (Activated Partial Thromboplastin Time) (04/04/2019 5:25 PM CDT) Analysis Performed At Patho logist Time Signature Activated 44 (H) 25 - 37 04/04/2019 [facility] Partial sec 5:57 PM CDT LABORATORIES - [facility] Time[facility] Specimen Anatomical Collection Method Collection Time Receive d Time (Source) Location / / Volume Laterality Blood (Blood, 04/04/2019 5:25 PM 04/04/20 19 5:32 Venous) CDT PM CDT Clemente Aiken M.D. LAB BLOOD ADD-ON Performing Organization Address City/[facility]/ZIP Code Phon e Number [facility] LABORATORIES - [address] [place] [address] [facility] Magnesium (04/04/2019 5:25 PM CDT) P athologist Signature Magnesium, S 2.3 1.7 - 2.3 04/04/2019 [facility] mg/dL 6:21 PM CDT LABORATORIES - [facility] Specimen Anatomical Collection Method Collection Time Receive d Time (Source) Location / / Volume Laterality Blood (Blood, 04/04/2019 5:25 PM 04/04/20 19 5:40 Venous) CDT PM CDT Clemente Aiken M.D. LAB BLOOD ADD-ON Performing Organization Address City/[facility]/ZIP Code Phon e Number [facility] LABORATORIES - [address] [place] [address] [facility] Phosphorus Inorganic (04/04/2019 5:25 PM CDT) Analysis Performed At Patho logist Time Signature Phosphorus 3.8 2.5 - 4.5 04/04/2019 [facility] (Inorganic), S mg/dL 6:21 PM CDT LABORATORIES - [facility] Specimen Anatomical Collection Method Collection Time Receive d Time (Source) Location / / Volume Laterality Blood (Blood, 04/04/2019 5:25 PM 04/04/20 19 5:40 Venous) CDT PM CDT Clemente Aiken M.D. LAB BLOOD ADD-ON Performing Organization Address City/[facility]/ZIP Code Phon e Number [facility] LABORATORIES - [address] [place], [place] [address] [facility] (ABNORMAL) Comprehensive Metabolic Panel (04/04/2019 5:25 PM CDT) Patholo gist Method Time Signature Potassium, S 3.5 (L) 3.6 - 5.2 04/04/2019 [facility] mmol/L 6:21 PM CDT LABORATORIES [facility] Sodium, S 141 135 - 145 04/04/2019 [facility] mmol/L 6:21 PM CDT [facility]ATORIES - [facility] Chloride, S 105 98 - 107 04/04/2019 [facility] mmol/L 6:21 PM CDT [facility] - [facility] Bicarbonate, S 23 22 - 29 04/04/2019 [facility] mmol/L 6:21 CDT [facility] - [facility] Anion Gap 13 7 - 15 04/04/2019 [facility] 6:21 PM CDT [facility]IES - [facility] BUN (Blood Urea 20 6 - 21 04/04/2019 [facility] Nitrogen), S mg/dL 6:21 PM CDT LAB[facility]ATORIES - [facility] Creatinine 0.90 0.59 - 04/04/2019 [facility] 1.04 6:21 CDT LABORATORIES - mg/dL [facility] eGFR-Non 72 >=60 04/04/2019 [facility] Black/ mL/min/BS 6:21 CDT LABORATORIES - [place] A [facility] Comment: ----ADDITIONAL INFORMATION---- Estimated GFR calculated using the 2009 CKD_EPI creatinine equation. eGFR-Black/ 83 >=60 mL/min/BSA 04/04/2019 6:21 [facility] Bangladeshi CDT LABORATORIES - [facility] Comment: ----ADDITIONAL INFORMATION---- Estimated GFR calculated using the 2009 CKD_EPI creatinine equation. Calcium, Total, S 8.6 8.6 - 10.0 04/04/2019 6:21 [facility] mg/dL CDT LABORATORIES [facility] Glucose, S 96 70 - 140 04/04/2019 6:21 [facility] mg/dL CDT LABORATORIES [facility] Protein, Total, S 6.2 (L) 6.3 - 7.9 04/04/2019 6:21 [facility] g/dL CDT LABORATORIES [facility] Albumin, S 4.1 3.5 - 5.0 04/04/2019 6:21 [facility] g/dL PM CDT LABORATORIES [facility] Aspartate 21 8 - 43 U/L 04/04/2019 6:21 [facility] Aminotransferase (AST), CDT LABORA TORIES - S [facility] Alkaline Phosphatase, S 73 35 - 104 U/L 04/04/2019 6: 21 [facility] CDT LABORATORIES [facility] Alanine Aminotransferase 14 7 - 45 U/L 04/04/2019 6:2 1 [facility] (ALT), S PM CDT LABORATORIES - [facility] Bilirubin, Total, S 0.2 <=1.2 mg/dL 04/04/2019 6:21 [facility] PM CDT LAB[facility]ATORIES - [facility] Specimen Anatomical Collection Method Collection Time Receive d Time (Source) Location / / Volume Laterality Blood (Blood, 04/04/2019 5:25 PM 04/04/20 19 5:40 Venous) CDT PM CDT Clemente Aiken M.D. LAB BLOOD ADD-ON Performing Organization Address City/State/ZIP Code Phon e Number [facility] LABORATORIES - [address] [place], [place] [address] [facility] documented in this encounter Visit [...] Kiara Curry R.N., CRN - Comment: LOT# [id number]) 1-200 mL, intravenous, Once in imaging, contrast, [...]
--- OUTSIDE RECORDS SUMMARY | 2022-09-09 08:05 | XMS_ITS | Encounter Summary ---
:1965 Author Organization [facility] Address [address] [place] [address] Care Team Providers Name Role Phone Unavailable Primary Care Provider Unavailable Encounter Details Date Type Department Care Team Description 06/28/2019 Hospital Encounter Department of Fernie Soriano Stroke ([facility]); Radiology, Jordy Alvarado M.D. Thrombosis Arterial ([facility]); Building, in [address] [place] [address] Aneurysm Cerebral Unruptured ([facility]) [place], [place] [address] [place] [address] [place], [place] [phone] (Work) [phone] Social History Tobacco Use Types Packs/Day Years [...] you attend jain or Patient refused 2021 yazidism services? Do [...] the ventral aspect (series 6 image s [id number]). The lumen remains significantly irregular and there [...] well seen. The RADHA, MCA, a nd ART SALES CONSULTANT branches are unremarkable in appearance. Stable [...] the ventral aspect (series 6 image s [id number]). The lumen remains significantly irregular and there [...] well seen. The RADHA, MCA, a nd ART SALES CONSULTANT branches are unremarkable in appearance. Stable [...]
--- OUTSIDE RECORDS SUMMARY | 2022-09-09 08:05 | XMS_ITS | Encounter Summary ---
:1965 Author Organization [facility] Address [address] [place] [address] Care Team Providers Name Role Phone Unavailable Primary Care Provider Unavailable Reason for Visit Reason Onset Date Comments [facility] Med Request 03/30/2019 Encounter Details Date Type Department Care Team Description 03/30/2019 Clinical [facility] Med Request Nicotine Kenna Bose M.S., [place], C.[facility] in [place], [place] [address] [place] [address] Social History Tobacco Use Types Packs/Day Years [...] you attend mormon or Patient refused 2021 congregational services? Do [...] CDT Please send the following to the [facility] 1) 14 mg patch 2) Varenicline [...]
--- OUTSIDE RECORDS SUMMARY | 2022-09-09 08:05 | XMS_ITS | Encounter Summary ---
:1965 Author Organization [facility] Address [address] [place] [address] Care Team Providers Name Role Phone Unavailable Primary Care Provider Unavailable Reason for Referral Outpatient (Routine) - Closed Specialty Diagnoses / Procedures Referred By Contact Refer red To Contact Neurology Robert Diehl M. D. [facility] [address] [place] [phone] Referral ID Status Reason Start Date Expiration Date Visits Requ ested Visits Authorized [id number] Closed 06/28/2019 06/27/2020 1 1 Reason for Visit Outpatient (Routine) - Closed Specialty Diagnoses / Procedures Referred By Contact Refer red To Contact Neurology Diagnoses Stroke (HCC) Thrombosis Arterial (HCC) Aneurysm Cerebral Unruptured (HCC) Fernie Soriano M.D. [facility] [address] [place] [phone] Referral ID Status Reason Start Date Expiration Date Visits Requ ested Visits Authorized [id number] Closed 03/31/2019 03/30/2020 1 1 Encounter Details Date Type Department Care Team Description 06/28/2019 Office Visit Department of Robert Diehl Fatigue ( Primary Dx); Neurology in [place] Stroke (HCC); [place], [place] 200 [facility] Thrombosis Arterial (HCC); [address] [place] [address] Aneurysm Cerebral Unruptured ([place] [phone] Social History Tobacco Use Types Packs/Day Years [...] you attend zoroastrian or Patient refused 2021 jewish services? Do [...] well. 35 minutes Electronically signed by: Robert iDehl M.D. 06/28/19 3:22 PM Diagnosis Plan 1. [...] Name Type Priority [facility] Routine Fatigue Expected: 06/28/2019 Oximetry (Approximate), Expires: 06/28/2022 Scheduled Referrals Name Type Priority Associated Diagnoses Order S [facility] Neurology office Outpatient Referral Routine Expe [...]
--- OUTSIDE RECORDS SUMMARY | 2022-09-09 08:05 | XMS_ITS | Encounter Summary ---
:1965 Author Organization [facility] Address [address] [place] [address] Care Team Providers Name Role Phone Unavailable Primary Care Provider Unavailable Reason for Visit Reason Onset Date Comments Nicotine Dependence 04/26/2019 Encounter Details Date Type Department Care Team Description 04/26/2019 Clinical Department of Tesfaye Ortega, Nicotine Janet grady Communication Nicotine Kenna D, Dependence, Jordy Alex, [facility] in [place], [place] [address] [place] [address] Social History Tobacco Use Types Packs/Day Years [...] you attend episcopal or Patient refused 2021 latter day services? [...]
--- OUTSIDE RECORDS SUMMARY | 2022-09-09 08:06 | XMS_ITS | Encounter Summary ---
:1965 Author Organization [facility] Address [address] [place] [address] Care Team Providers Name Role Phone Unavailable [...] you attend alevism or Patient refused 2021 baptism services? Do [...]
--- OUTSIDE RECORDS SUMMARY | 2022-09-09 08:06 | XMS_ITS | Encounter Summary ---
:1965 Author Organization [facility] Address [address] [place] [address] Care Team Providers Name Role Phone Unavailable [...] you attend christian or Patient refused 2021 orthodox services? Do [...] 2:55 PM MST Indications: ?CP PATHWAY CALL [phone] IF POS ORIGINAL REPORT - 24-Jul-2009 14:55:00 [...] from the original. Indications: CP PATHWAY CALL [phone] IF PO S ORIGINAL REPORT - 24-Jul-2009 [...]
--- OUTSIDE RECORDS SUMMARY | 2022-09-09 08:06 | XMS_ITS | Encounter Summary ---
:1965 Author Organization [facility] Address [address] [place] [address] Care Team Providers Name Role Phone Unavailable [...] 4:56 PM MST Narrative 07/06/2008 5:07 PM [facility] Indications: ?PNE PATHWAY CALL [phone] IF POS. ??TECHNOTE: NIPPLE PIERCINGS LUNG ARTIFACT. [...] from the original. Indications: PNE PATHWAY CALL [phone] IF P OS. TECHNOTE: NIPPLE PIERCINGS LUNG [...]
--- OUTSIDE RECORDS SUMMARY | 2022-09-09 08:06 | XMS_ITS | Encounter Summary ---
:1965 Author Organization [facility] Address [address] [place] [address] Care Team Providers Name Role Phone Unavailable [...] 9:46 PM MST Indications: ?CP PATHWAY CALL [phone] IF POS ?? tech: pt. not and [...] from the original. Indications: CP PATHWAY CALL [phone] IF PO S tech: pt. not and [...] Lead with rhythm strip (02/03/2009 12:00 AM [facility]) Specimen (Source) Anatomical Location Collection Method / Collectio n Time Received Time / Laterality Volume 02/03/2009 Historical Provider ECG ORDERABLES Performing Organization Address City/State/ZIP Code Phon e Number HX [place] CONVERSION documented in this encounter Visit Diagnoses Not on filedocumented in this encounter
--- OUTSIDE RECORDS SUMMARY | 2022-09-09 08:06 | XMS_ITS | Encounter Summary ---
:1965 Author Organization [facility] Address [address] [place] [address] Care Team Providers Name Role Phone Unavailable Primary Care Provider Unavailable Reason for Visit Reason Onset Date Comments Prior Medical Records/Sinus CT 03/02/2019 Encounter Details Date Type Department Care Team Description 03/02/2019 Clinical Department of Honorio, Prior Medical Communication Otorhinolaryngology in [place] rds/Sinus CT [place], [place] Lilian [address] [facility] [address] [place] [address] [place] [address] Social History Tobacco Use Types Packs/Day Years [...] you attend mormonism or Patient refused 2021 rastafari services? Do [...] 8:13 AM CDT Per [place] (Dr. Olmedo), [facility] (Dr. Mckeon) ([phone]) was contacted. The previousmedical records have been received and sent for scanning into pt's chart. [facility] will be pushed. Coby documented in this encounter Plan of Treatment Not on filedocumented as of this encounter Visit Diagnoses Not on filedocumented in this encounter
--- OUTSIDE RECORDS SUMMARY | 2022-09-09 08:06 | XMS_ITS | Encounter Summary ---
:1965 Author Organization [facility] Address [address] [place] [address] Care Team Providers Name Role Phone Elsewhere, Pcp Primary Care Provider Unavailable Reason for Referral Outpatient (Routine) - Closed Specialty Diagnoses / Procedures Referred By Contact Refer red To Contact Otorhinolaryngology Diagnoses Sinus Nose Disorder Sinusitis Chronic Chris Mckeon [place] M.D. [address] [place] [address] Referral ID Status Reason Start Date Expiration Date Visits Requ ested Visits Authorized [id number] Closed 01/10/2019 01/10/2020 1 1 BUYER Encounter Details Date Type Department Care Team Description 01/10/2019 [facility] Mike, Sinu s Nose Disorder (Primary Dx); AND CLINICS Chris Celaya M.D. Sinusitis Chronic [address] [facility] [address] [place] [address] [place], [place] [phone] Social History Tobacco Use Types Packs/Day Years [...] you attend denominational or Patient refused 2021 sikh services? Do [...] COVID19 Pending 01/31/2021 01/31/2021 01/31/2021 10:53 PM HIDE BUYER COVID19 Pending 02/10/2021 02/11/2021 02/11/2021 1:09 AM CDT COVID19 Pending 12/29/2021 12/29/2021 12/29/2021 4:20 PM HIDE BUYER COVID19 Pending 02/25/2022 02/25/2022 02/25/2022 3:59 PM CDT COVID19 Pending 05/17/2022 05/17/2022 05/17/2022 2:34 PM CDT COVID19 Pending 06/15/2022 06/15/2022 06/15/2022 8:24 PM CDT documented as of this encounter Care Teams Spool Worker Relationship Specialty Start Date End Date Elsewhere, Pcp PCP - General Family Medicine 12/25/21 documented as of this encounter
--- OUTSIDE RECORDS SUMMARY | 2022-09-09 08:06 | XMS_ITS | Encounter Summary ---
:1965 Author Organization [facility] Address [address] [place] [address] Care Team Providers Name Role Phone Unavailable Primary Care Provider Unavailable Encounter Details Date Type Department Care Team Description 01/15/2010 - Hospital Encounter HX ARZ NO MAPPING Leonides Du, 01/16/2010 Lil[place] [address] [place] [address] Social History Tobacco Use Types [...] you attend sikh or Patient refused 2021 uatsdin services? Do [...] encounter Results [place] Esophagram (01/15/2010 9:36 PM [facility]) Anatomical Region Laterality Modality Gastro Intestinal, Abdominal RST LOS N/A Rad iographic Imaging Specimen (Source) Anatomical Collection Method Collection Time Re ceived Time Location / / Volume Laterality 01/15/2010 9:36 PM [facility] Narrative 01/15/2010 9:43 PM [facility] Indications: ?STATUS POST GASTRIC BYPASS ORIGINAL REPORT [...]
--- OUTSIDE RECORDS SUMMARY | 2022-09-09 08:06 | XMS_ITS | Encounter Summary ---
:1965 Author Organization [facility] Address [address] [place] [address] Care Team Providers Name Role Phone Unavailable Primary Care Provider Unavailable Encounter Details Date Type Department Care Team Description 09/25/2015 Hospital Encounter HX [facility] Hernesto Watson M.D. [address] [facility], [address] [place] [address] (Wo rk) Social History Tobacco [...] you attend mosque or Patient refused 2021 cheondoism services? Do [...] KUNZ LPN On: 09/25/2015 03:38 PM Source: [facility] POWERCHART Document Id: [id number] documented in this encounter Miscellaneous Notes Telephone Encounter - Conversion, Historical Provider Ser - 05/11/2017 11:32 AM CDT *Phone Message/Dr. Watson Document Contains Addenda Addendum by IVY BENITEZ on May 11, 2017 13:27:22 CDT From: IVY BENITEZ ( Wilsey Stock Dealer) To: Physical Medicine and Rehabilitation Staff; Sent: 05/11/2017 13:27:22 CDT Subject: RE: *Phone Message/Dr. Watson Left message on patients phone regarding this appointment. Addendum by NIKKIE GANDHI LPN on May 11, 2017 12:57:21 CDT From: NIKKIE GANDHI LPN ( Physical Medicine and Rehabilitation Staff) To: Wilsey Stock Dealer; Sent: 05/11/2017 12:57:21 CDT Subject: RE: *Phone Message/Dr. Watson 27th noon, please reschedule. From: IVY BENITEZ ( Wilsey Stock Dealer) To: Physical Medicine and Rehabilitation Staff; Sent: [...] come today, she would like it rescheduled [facility] since Dr. Romero wanted her to have it done. Please call her back at [phone] to advise. Advice/Action: Source used: ( ) [...] back cell phone number ( ) [facility] Document Id: [id number] Miscellaneous - Nikkie Gandhi L.P.N. - 05/04/2017 4:19 PM CDT *General Message Document Contains Addenda Addendum by ISIDRO HI on May 04, 2017 16:42:57 CDT From: ISIDRO HI ( Wilsey Stock Dealer) To: Physical Medicine and Rehabilitation Staff; Sent: 05/04/2017 16:42:57 CDT Subject: RE: *General Message Called patient and scheduled as requested. From: NIKKIE GANDHI LPN ( Physical Medicine and Rehabilitation Staff) To: Wilsey Stock Dealer; Sent: 05/04/2017 16:19:56 CDT Subject: *General Message Please call patient to schedule for bilateral upper extremity EMG. 05/11/17 at 11:45 am. 1 hour Source: [employer] Document Id: [id number] Electronically signed by Avinash Jewish Memorial Hospitalzen Cleaning And Washing Equipment Operator [id number] at 06/01/2017 1:18 AM CDT documented in this encounter Plan of Treatment Not on filedocumented as of this encounter Visit Diagnoses Not on filedocumented in this encounter
--- OUTSIDE RECORDS SUMMARY | 2022-09-09 08:06 | XMS_ITS | Encounter Summary ---
:1965 Author Organization [facility] Address [address] [place] [address] Care Team Providers Name Role Phone Unavailable [...]
--- OUTSIDE RECORDS SUMMARY | 2022-09-09 08:06 | XMS_ITS | Encounter Summary ---
:1965 Author Organization [facility] Address [address] [place] [address] Care Team Providers Name Role Phone Unavailable [...] you attend voodoo or Patient refused 2021 mandaen services? Do [...]
--- OUTSIDE RECORDS SUMMARY | 2022-09-09 08:06 | XMS_ITS | Encounter Summary ---
:1965 Author Organization [facility] Address [address] [place] [address] Care Team Providers Name Role Phone Unavailable Primary Care Provider Unavailable Encounter Details Date Type Department Care Team Description 07/25/2009 - Hospital Encounter HX ARZ NO MAPPING Provider, Jadyn ohugh 07/24/2010 Social History Tobacco Use Types Packs/Day [...] you attend buddhist or Patient refused 2021 presybeterian services? Do [...]
--- OUTSIDE RECORDS SUMMARY | 2022-09-09 08:06 | XMS_ITS | Encounter Summary ---
:1965 Author Organization [facility] Address [address] [place] [address] Care Team Providers Name Role Phone Unavailable [...] you attend denominational or Patient refused 2021 scientology services? Do [...] Address City/State/ZIP Code Phon e Number HX [place] CONVERSION documented in this encounter Visit Diagnoses Not on filedocumented in this encounter
--- OUTSIDE RECORDS SUMMARY | 2022-09-09 08:06 | XMS_ITS | Encounter Summary ---
:1965 Author Organization [facility] Address [address] [place] [address] Care Team Providers Name Role Phone Unavailable [...]
--- OUTSIDE RECORDS SUMMARY | 2022-09-09 08:06 | XMS_ITS | Encounter Summary ---
:1965 Author Organization [facility] Address [address] [place] [address] Care Team Providers Name Role Phone Unavailable [...] you attend anabaptism or Patient refused 2021 gnosticism services? Do [...]
--- OUTSIDE RECORDS SUMMARY | 2022-09-09 08:06 | XMS_ITS | Encounter Summary ---
:1965 Author Organization [facility] Address [address] [place] [address] Care Team Providers Name Role Phone Unavailable Primary Care Provider Unavailable Encounter Details Date Type Department Care Team Description 06/21/2017 Hospital Encounter HX [facility] PMTR Hernesto Watson M.D. [address] [facility], [address] [place] [address] (Wo rk) Social History Tobacco Use Types [...] you attend spiritism or Patient refused 2021 religion services? Do [...] - 06/21/2017 12:00 AM CDT 1EMG EMG SAFETY INSTRUCTOR Sergio Watson MD ([phone]) REFERRED BY Dr. Romero. REFERRED FOR Ms. [...] WATSON MD On: 06/21/2017 03:10 PM Source: [facility] MHSDOLBEYNONRADSYS Document Id: [id number] documented in this encounter Miscellaneous Notes Miscellaneous - Sergio Watson, M.D. - 06/21/2017 2:19 PM CDT Ambulatory Discharge Medication List [address] [id number] Visit Information Name: KAYLIN BENDER [facility] Number: [id number] Current Date: 06/21/2017 14:19:38 [...] MD Signed On:21-JUN-2017 14:19:21 Additional Information: Source: [facility] POWERCHART Document Id: [id number] Reema - Sergio Watson M.D. - 06/21/2017 2:19 PM CDT Ambulatory Patient Summary [address] [id number] Visit Information Name: KAYLIN BENDER [facility] Number: [id number] Current Date: 06/21/2017 14:19:38 [...] if you dont have one. Go to [email or web address] and click on Create Your Account. Then, follow the directions to complete the online form. Youll be asked for your [facility] number which you can find at the top of this document. Your Goals/Additional instructions: Source: [facility] POWERCHART Document Id: [id number] Miscellaneous - Ayla Mcmanus, L.P.N. - 06/21/2017 1:25 PM CDT Adult Eye Dropper Assembler Intake/History Adult Eye Dropper Assembler Intake/History Entered On: 06/21/2017 13:26 CDT Performed On: 06/21/2017 13:25 CDT by MARIETTA, AYLA J MANAGER SIX SIGMA Intake Systolic Blood Pressure : 124 mmHg Diastolic Blood Pressure : 62 mmHg NIBP Mean : 83 mmHg BP Location : Left upper extremity Blood Pressure Cuff Size : Regular Actual Weight : 70.55 kg(Converted to: 155 lb 9 oz) Dosing Weight Clinic : 70.55 kg AYLA MCMANUS LPN - 06/21/2017 13:25 CDT General Info Information Given By : Patient Languages : Kenyan Is Patient Female and 13-50 no hysterectomy [...] MCMANUS LPN - 06/21/2017 13:25 CDT Source: [facility] POWERCHART Document Id: [id number] CDT!24 documented in this encounter Plan of Treatment Not on filedocumented as of this encounter Visit Diagnoses Not on filedocumented in this encounter
--- OUTSIDE RECORDS SUMMARY | 2022-09-09 08:06 | XMS_ITS | Encounter Summary ---
:1965 Author Organization [facility] Address [address] [place] [address] Care Team Providers Name Role Phone Unavailable Primary Care Provider Unavailable Reason for Visit Outpatient (Routine) - Closed Specialty Diagnoses / Procedures Referred By Contact Refer red To Contact Otorhinolaryngology Diagnoses Sinus Nose Disorder [facility] [address] [place] [address] Referral ID Status Reason Start Date Expiration Date Visits Requ ested Visits Authorized [id number] Closed 01/10/2019 01/10/2020 1 1 Encounter Details Date Type Department Care Team Description 03/01/2019 Comprehensive Visit Department of Honorio, Sinusit is Chronic (Primary Dx); Otorhinolaryngology in [place] , Sinus [facility]ose [facility] [address] [facility] [address] [place] [address] [place] [phone] Social History Tobacco Use Types Packs/Day Years [...] you attend holiness or Patient refused 2021 confucianism services? Do [...] X2 in [place] and X2 at [place] per patient; 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 Decongestion: no improvement with decongestion. Modified Allen: not performed. Rigid exam with a 30 [...] obtained. - Obtained outside operative reports from [place] - Discussed risks and benefits including but [...]
--- OUTSIDE RECORDS SUMMARY | 2022-09-09 08:06 | XMS_ITS | Encounter Summary ---
:[address] [facility] Address [address] [place] [address] Care Team Providers Name Role Phone Unavailable [...] you attend amish or Patient refused 2021 adventist services? Do [...] Pelvis with IV Contrast (09/02/2007 1:17 AM [facility]) Anatomical Region Laterality Modality Pelvis, Abdominal RST LOS N/A Computed Tomog chato Specimen (Source) Anatomical Collection Method Collection Time Re ceived Time Location / / Volume Laterality 09/02/2007 1:17 AM [facility] Addenda Addendum by Elmo Cabrera M.D. on 03/2007 11:40 PM [facility] APPENDED REPORT - 02-Sep-2007 01 :40:00 CT Abdomen w/ Contrast CT Pelvis W Contrast Appended to link all pertinent exams to report. ? Electronically signed by: ?? Mamta Cabrera M.D. 02-Sep-2007 01:40 Narrative 09/02/2007 1:40 AM [facility] Indications: ?R/O ABCESS, POSTOP ORIGINAL [...] Abdomen with IV Contrast (09/02/2007 1:17 AM [facility]) Anatomical Region Laterality Modality Abdomen, Abdominal RST LOS N/A Computed [place] graphy Specimen (Source) Anatomical Collection Method Collection Time Re ceived Time Location / / Volume Laterality 09/02/2007 1:17 AM [facility] Addenda Addendum by Elmo Cabrera M.D. on 03/2007 11:40 PM [facility] APPENDED REPORT - 02-Sep-2007 01 :40:00 CT Abdomen w/ Contrast CT Pelvis W Contrast Appended to link all pertinent exams to report. ? Electronically signed by: ?? Mamta Cabrera M.D. 02-Sep-2007 01:40 Narrative 09/02/2007 1:40 AM [facility] Indications: ?R/O ABCESS, POSTOP ORIGINAL [...] has been electronically sign ed by Elmo aCbrera MD on Sep 02 2007 1:39AM. This report has been electronically sign ed by Elmo Cabrera MD on Sep 02 2007 1:39AM. Electronically signed by: Mamta Cabrera M.D. 02-Sep-2007 01:39 Asia Givens M.D. IMG CT PROCEDURES documented in this encounter Visit Diagnoses Not on filedocumented in this encounter
--- OUTSIDE RECORDS SUMMARY | 2022-09-09 08:06 | XMS_ITS | Encounter Summary ---
:1965 Author Organization [facility] Address [address] [place] [address] Care Team Providers Name Role Phone Unavailable [...] you attend mormonism or Patient refused 2021 cheondoism services? Do [...] encounter Results [place] Esophagram (08/24/2007 10:57 AM [facility]) Anatomical Region Laterality Modality Gastro Intestinal, Abdominal RST LOS N/A Rad iographic Imaging Specimen (Source) Anatomical Collection Method Collection Time Re ceived Time Location / / Volume Laterality 08/24/2007 10:57 AM MST Narrative 08/24/2007 11:41 AM [facility] Indications: ?STATUS POST GASTRIC BYPASS ORIGINAL [...]
--- OUTSIDE RECORDS SUMMARY | 2022-09-09 08:06 | XMS_ITS | Encounter Summary ---
:1965 Author Organization [facility] Address [address] [place] [address] Care Team Providers Name Role Phone Unavailable [...] you attend shinto or Patient refused 2021 jehovah's witness services? [...] and Lateral 2 Views (08/18/2008 9:44 PM [facility]) Anatomical Region Laterality Modality Chest, Thoracic RST LOS N/A Radiographic Xi ging Specimen (Source) Anatomical Collection Method Collection Time Re ceived Time Location / / Volume Laterality 08/18/2008 9:44 PM MST Narrative 08/18/2008 9:57 PM [facility] Indications: ?PNE PATHWAY CALL [phone] IF POS - pt unable to remove [...] from the original. Indications: PNE PATHWAY CALL [phone] IF P OS - pt unable to [...]
--- OUTSIDE RECORDS SUMMARY | 2022-09-09 08:06 | XMS_ITS | Encounter Summary ---
:1965 Author Organization [facility] Address [address] [place] [address] Care Team Providers Name Role Phone Unavailable [...] you attend caodaism or Patient refused 2021 scientology services? Do [...] 2:53 PM MST Narrative 08/16/2008 3:27 PM [facility] Indications: ?CHEST PAIN tech: Pt stated [...] Lead with rhythm strip (08/16/2008 12:00 AM [facility]) Specimen (Source) Anatomical Location Collection Method / Collectio n Time Received Time / Laterality Volume 08/16/2008 Historical Provider ECG ORDERABLES Performing Organization Address City/State/ZIP Code Phon e Number HX [place] CONVERSION documented in this encounter Visit Diagnoses Not on filedocumented in this encounter
--- OUTSIDE RECORDS SUMMARY | 2022-09-09 08:06 | XMS_ITS | Encounter Summary ---
:1965 Author Organization [facility] Address [address] [place] [address] Care Team Providers Name Role Phone Unavailable [...] you attend adventism or Patient refused 2021 confucianist services? Do [...]
== END 2022-09-09 08:28 | disposition home or self-care (01) ==
PROVIDERS: Emergency Provider Family Medicine; PCP Family Medicine
DX: M25.531 Pain in right wrist (principal)
CPT/HCPCS: 29125; 73110; 99283

== ENCOUNTER 2022-09-20 12:12 | Emergency (ER) | payer MEDICARE, OTHER, SELFPAY ==
[2022-09-20 12:25] VITALS: BP 124/76; PULSE 74; RESP 18; TEMP 36.7; O2SAT 98; BMI 28.3
--- OUTSIDE RECORDS SUMMARY | 2022-09-20 13:58 | XMS_ITS | Continuity of Care Document ---
:1965 Author Organization [facility] Address [address] [place] [address] Phone Care Team Providers Name Role Phone [...] rs Description For Visit Copied on Encounter [facility] [place] Referring [facility] Information -2007 Su. Provider : Arthur [address] [place], [address], [address] [facility], [place], [place], [place], [id number], [place], [id number], . [address]. tel:[phone] tel:[phone] tel:[phone] [employer] Blurred No Adalberto Referring [facility] Information -2007 Deep. Provider: Arthur, (chief [address]) [address] [facility], [address], [address], [place], [place], [place], [place], [place], [place], [id number], [place], [id number], . [address]. tel:[phone] tel:[phone] tel:[phone] Family History Family Member Type Diagnosis Age [...]
--- OUTSIDE RECORDS SUMMARY | 2022-09-20 13:58 | XMS_ITS | Continuity of Care Document ---
:1965 Author Organization [facility] Address [address] [place] [address] Care Team Providers Name Role Phone Mor Singleton CRNA Unavailable Unavailable Procedures Procedure Date ANESTH, HEAD/NECK/PTRUNK ANESTH PERC IMG TX SP PROC ANESTH PERC IMG TX SP PROC Advance Directives Directive Yes / No Effective Date File Name No Information Encounters Encounter Practice Location Reason(s) Diagnoses Date Provider Provide rs Description For Visit Copied on Encounter [facility] No Areli Referring [facility] Mor. Provider: Lois CISNEROS Surgery [address] [place] [address], [place] [facility] [address] [place] [id number], [facility], [place], [place], [place], [place], [id number], [id number] [place]. . tel:[phone] tel:[phone] [facility] No [facility] Referring Anest[facility] -2019 Nilay. Provider: Lois CISNEROS Surgery [address] [facility], [facility] [place], [place], [address] [id number], [id number], [facility] [place] tel:[phone] s, [place], [phone] . tel:[phone] [facility] No [facility] Referring Anesthesia [facility] -2019 Nilay. Provider: [place], [address], [place], Endy J, [place], [place], [place], [address] [facility] [id number], [id number], John, [facility]. Denisa tel:[phone] s, [place], [id number] . tel:[phone] Family History Family Member Type Diagnosis Age At Onset No Information Payers Payer name Insurance type Covered libertarian ID Authorization(s ) Medicare MB [id number] [facility] [id number] Social History Type Description Quantity Date Captured [...]
--- OUTSIDE RECORDS SUMMARY | 2022-09-20 13:58 | XMS_ITS | Continuity of Care Document ---
:1965 Author Organization [facility] Address [address] [place] [address] Phone Care Team Providers Name Role Phone [...] rs Description For Visit Copied on Encounter [facility] No Information Nov- ZProvider Arthritis [place] 6-[address] [place] 4 . . Rheumatolo gy, [address] [facility], [place], [place], [id number], [place] tel:[phone] [facility] TOBACCO USE Apr-1 Michele Arthritis DISORDEROBESITY 8-201 Nara. And NOSOSTEOPOROSIS NOS [address], gy, [address], [address], [place], [id number], [place], [place]. [id number], tel:[phone] tel:[phone] [facility] Age-related Apr-0 ZProvider Arthritis [place] osteoporosis w/o 7-[address] [place] current 4 . . Rheumatolo pathological gy, [address] [place] [address], [id number], [place] tel:[phone] [facility] OBESITY NOSTOBACCO Mar-2 ZProvider Arthritis USE 8[address] And DISORDEROSTEOPOROSI 4 . . Rheumatolo S NOSMALAISE AND gy, [address], [place], [place], [id number], [place] tel:[phone] [place] [facility]AL[facility] [place] Tobacco useObesity, Mar-2 Michele Arthritis unspecifiedAge-rela Nara. And mary osteoporosis 4 [address]o [address], gy, [address], [address] fracture [place], [address], [place], [place], [id number], [place], [place]. [id number], tel:[phone] tel:[phone] Family History Family Member Type Diagnosis Age [...] weeks. Assessments Type Assessment Date No Information Patient Care Teams Name Effective Dates (start - stop) Status M embers No Information
--- OUTSIDE RECORDS SUMMARY | 2022-09-20 13:58 | XMS_ITS | Continuity of Care Document ---
:1965 Author Organization [facility] Address [address] [place] [address] Care Team Providers Name Role Phone [facility] Unavailable Unavailable Procedures Procedure Date [...] Visit Copied on Encounter [facility] Provider: Surgery Surgery Surgery [facility]. David, [address], [place], [place] [id number], [place], [place], , [place] [id number], [address]. [place]. tel: [phone] [facility] No Twin Referring [address] Provider: Surgery Surgery Surgery [facility]. David, [address], [place], [place] [id number], [place], [place], , [place] [id number], [address]. [place]. tel: [phone] [facility] No Twin [address] Provider: Surgery Surgery Surgery [facility]. Jose [address] [facility] [address], [facility], [place], [place] , [place], [id number], [place], [address]. [place] [id number], tel: [phone] tel:[phone] Family History Family Member Type Diagnosis Age At Onset No Information Payers Payer name Insurance type Covered democrat ID Authorization(s ) Medicare [id number] [facility] [id number] Social History Type Description Quantity Date Captured [...]
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
--- OUTSIDE RECORDS SUMMARY | 2022-09-20 13:58 | XMS_ITS | Continuity of Care Document ---
:1965 Author Organization [facility] Address [address] [address] [place] [address] Phone Care Team Providers Name Role Phone Nilay Perry MD Unavailable Unavailable Advance Directives Directive Yes / No Effective Date File Name No Information Encounters Encounter Practice Location Reason(s) Diagnoses Date Provider Provide rs Description For Visit Copied on Encounter [facility] No [place] FAULKNER Referring [facility] Nilay. Provider: [facility] [address] [facility] [address], Fredis DILLON MD, [address] [facility] [address], [place], [place], [facility] [address], [id number], [place], [place], [facility] [id number], [place], [address]. tel:[phone] . tel:[phone] tel:[phone] Family History Family Member Type Diagnosis Age At Onset No Information Payers Payer name Insurance type Covered libertarian ID Authorization(s ) [place] [facility] [id number] Social History Type Description Quantity Date Captured [...]
--- OUTSIDE RECORDS SUMMARY | 2022-09-20 13:59 | XMS_ITS | Continuity of Care Document ---
:1965 Author Organization [facility] Address [address] [place] [address] Phone Care Team Providers Name Role Phone Will Peter SAHU Unavailable Unavailable Allergies, Adverse Reactions, Alerts Substance Reaction Status Criticality gabapentin Tremor Active No Information baclofen Rash Active No Information benzoin Rash Active No Information acyclovir Rash Active No Information cefaclor Rash Active No Information adhesive tape Rash Active No Information amoxicillin Rash Active No Information Medications Medication Instructions Dosage Effective Dates Status Comment s (start - stop) oxycodone 10 mg tablet take 1 Tablet by - Acti ve ORAL route every 4 - 6 hours as needed, max 5/day, for chronic pain Valium 5 mg tablet take 1 tablet by 5 MG - Active oral route 2 times every day TIZANIDINE HCL 4 MG TAKE 1 TO 2 - Active TABLET 4 Tablet TABLETS BY MOUTH EVERY EIGHT HOURS NEEDED NOT TO EXCEED THREE DOSES IN 24 HOURS PREGABALIN 150 MG take 1 capsule by 150 MG - Active CAPSULE oral route 4 times every day aspirin 81 mg take 1 tablet by 81 MG - Active tablet,delayed release oral route every day Wellbutrin XL 300 mg take 1.5 tablet by 450 MG - Active 24 hr tablet, extended oral route every release day Lyrica 300 mg capsule take 2 capsule by 600 MG - Active oral route 2 times every day Vitamin B-12 5,000 take as directed - Active mcg/mL sublingual drops albuterol sulfate HFA inhale 2 puff by - Active 90 mcg/actuation inhalation route aerosol inhaler every 4 - 6 hours as needed benzonatate 100 mg take 1 capsule by 100 MG - Active capsule oral route 3 times every day cholecalciferol take 1 tablet by 1 tablet - Active (vitamin D3) 5,000 oral route every unit tablet day folic acid 800 mcg take 3 tablet by 2.4 MG - Active tablet oral route every day lamotrigine 200 mg take 1 tablet by 200 MG - Active tablet oral route 2 times every day lidocaine 5 % topical apply by Topical Not Available - Activ e ointment route 4 times every day Nexium 40 mg take 1 capsule by 40 MG - Active capsule,delayed oral route 2 times release every day omeprazole [address] 1 tablet by 1 tablet - Active tablet,delayed release oral route every day for [address] 1 tablet by 8 MG - Active disintegrating tablet translingual route every 8 hours for 2 days on top of the tongue where it will dissolve, then swallow polyethylene glycol take (17G) by oral - Active 3350 17 gram/dose oral route every day powder mixed with 8 oz. water, juice, soda, coffee or tea potassium chloride ER take 2 capsule by 20 MEQ - Active 10 mEq oral route 2 times capsule,extended every day with release food tretinoin 0.05 % apply by topical 0.00 - Active topical cream route every day to the affected area(s) at bedtime Valtrex 500 mg tablet take 1 Tablet by 500 MG - Active oral route 2 times every day Procedures Procedure Date Foll-up eval q3mo opiod tx OFFICE/OUTPATIENT VISIT, EST Drug test def 15-21 classes Drug Urine Toxology With Chromatography Foll-up eval q3mo opiod tx OFFICE VISIT, [...] elctr each OFFICE/OUTPATIENT VISIT, EST SCS PreTrial [place] [employer] OFFICE/OUTPATIENT VISIT, EST OFFICE/OUTPATIENT VISIT, EST [...] rs Description For Visit Copied on Encounter [facility] No Information Jul- [facility] 0 Peter. Pain Caterina 2 [address] [facility], John, [address] [place], [place], [place], [place], [id number] [place], , [place]. [id number] tel: , [place] [id number] tel: [phone] OFFICE/OUTPAT [facility] Pain in left Sep-2 Mario Referring IENT VISIT, [facility] (chief shoulderPain in [place]. Provider: EST Pain [place] complaint) left hipPain in 2 [address] [facility], right hipPain in Endy Lopez, [address] left kneePain in [place] [address] John, right kneeOther is, [place], [place], Caterina, spondylosis, [id number] [place], cervical , [place]. [place], [place], [id number] regionOther tel: [phone] , [place] spondylosis, [id number] . tel: lumbar tel:2 [phone] regionRadiculopath [phone] y, lumbar regionPain in thoracic spineFibromyalgiaP ostlaminectomy syndrome, not elsewhere classifiedAnxiety disorder, unspecifiedOsteoar thritisChronic migraine without aura, intractable, without status migrainosusLong term (current) use of opiate analgesicEncounter for therapeutic drug level monitoring [facility] No Information Mario Refer [facility]. Provider: Pain Caterina 2 [address] [facility], John, Will J, [address] [place] [address] Jon[place], is, [place], [place], [place], [id number] [place], , [place]. [place], [place], [id number] tel: [phone] , [place] [id number] . tel: tel: [phone] OFFICE VISIT, [facility] Anxiety disorder, Ka [facility] (chief unspecifiedChronic [facility]. TELEMEDICINE Pain [place] complaint) migraine without 2 [address] [facility], aura, intractable, John, [address] without status [place], migrainosusOsteoar is, [place], C[place]ina, thritisPain in [id number] [place], left shoulderPain , [place]. [id number] in left hipPain in tel: , [place] right hipPain in [id number] tel: left kneePain in [id number] right kneeOther spondylosis, cervical regionOther spondylosis, lumbar regionRadiculopath y, lumbar regionPain in thoracic spineFibromyalgiaP ostlaminectomy syndrome, not elsewhere classifiedLong term (current) use of opiate analgesic OFFICE VISIT, [facility] OsteoarthritisChro K shlomo Referring [facility] (chief saul migraine [facility]. Provide r: TELEMEDICINE Pain [place] complaint) without aura, [facility] [facility], intractable, John, Will J, [address] without status [place] [address] John, migrainosusAnxiety is, [place], [place], [place], disorder, [id number] [place], unspecifiedPain in , [place]. s, [place] , [id number] left shoulderPain tel: [phone] , [place] in left hipPain in [id number] . tel: right hipPain in tel: [phone] left kneePain in 646731 5 right kneeOther spondylosis, cervical regionOther spondylosis, lumbar regionRadiculopath y, lumbar regionPain in thoracic spinePostlaminecto my syndrome, not elsewhere classifiedFibromya lgiaLong term (current) use of opiate analgesic OFFICE VISIT, [facility] Pain in left [facility] (chief shoulderAnxiety [place]. TELEMEDICINE Pain [place] complaint) disorder, [address] Clinic, unspecifiedChronic John, [address] migraine without [place], aura, intractable, [place], [place], [place], without status [id number] [place], migrainosusOsteoar , [place]. [id number] thritisPain in tel:+ , [place] right hipPain in [id number] tel: left hipPain in 24107959 left kneePain in right kneeOther spondylosis, cervical regionOther spondylosis, lumbar regionRadiculopath y, lumbar regionPain in thoracic spinePostlaminecto my syndrome, not elsewhere classifiedFibromya lgiaLong term (current) use of opiate analgesic OFFICE VISIT, [facility] Pain in left March- [facility] (chief hipAnxiety [place]. TELEMEDICINE Pain [place] complaint) disorder, 2 [address] Clinic, unspecifiedChronic John, [address] migraine without [place], aura, intractable, [place], [place], [place], without status [id number] [place], migrainosusOsteoar , [place]. [id number] thritisPain in tel:+ , [place] left shoulderPain [id number] tel:+ in right hipPain [id number] in left kneePain in right kneeOther spondylosis, cervical regionOther spondylosis, lumbar regionRadiculopath y, lumbar regionPain in thoracic spineFibromyalgiaP ostlaminectomy syndrome, not elsewhere classifiedLong term (current) use of opiate analgesic [facility] No Information March- [facility] [place]. Pain [place] 2 [address] Clinic, John, [address] [place], is, [place], [place], [id number] [place], , [place]. [id number] tel:+ , [place] [id number] tel:+ [phone] OFFICE/OUTPAT [facility] Anxiety disorder, Apr-2 Ka ngas Referring IENT VISIT, [facility] (chief unspecifiedChronic [place] . Provider: EST Pain [place] complaint) migraine without 2 [address] [facility] Clinic, aura, intractable, John, Will J, [address] without status [place] [address] John, migrainosusOsteoar is, [place], [place], C[place]ina, thritisPain in [id number] [place], left shoulderPain , [place]. [place], [place], [id number] in left hipPain in tel: [phone] , [place] right hipPain in 90890125 . tel: left kneePain in tel:2 [phone] right kneeOther [id number] spondylosis, cervical regionOther spondylosis, lumbar regionRadiculopath y, lumbar regionPain in thoracic spineFibromyalgiaP ostlaminectomy syndrome, not elsewhere classifiedLong term (current) use of opiate analgesic OFFICE VISIT, [facility] Chronic migraine Jan- [facility] (chief without aura, 0 [place]. TELEMEDICINE Pain [place] complaint) intractable, 2 [address] [facility], without status John, [address] migrainosusAnxiety [place], disorder, [place], [place], [place], unspecifiedOsteoar [id number] [place], thritisPain in , [place]. [id number] left shoulderPain tel: , [place] in right hipPain [id number] tel: in left hipPain in 54925244 right kneePain in left kneeOther spondylosis, cervical regionOther spondylosis, lumbar regionRadiculopath y, lumbar regionPain in thoracic spineFibromyalgiaP ostlaminectomy syndrome, not elsewhere classifiedLong term (current) use of opiate analgesic [facility] No Information Jan- Mario Refer [facility] [place]. Provider: Pain [place] 2 [facility] [facility] [place], Will J, [address] [place] [address] [place], is, [place], [place], C[place]ina, [id number] [place], , [place]. s, [place], [id number] tel: [phone] , [place] [id number] . tel: tel: [phone] OFFICE VISIT, [facility] Radiculopathy, [facility] (chief lumbar 8 [place]. TELEMEDICINE Pain [place] complaint) regionPostlaminect 2 [address] [facility], marquis syndrome, not John, [address] elsewhere [place], classifiedPain in is, [place], [place]ina, left hipAnxiety [id number] [place], disorder, , [place]. [id number] unspecifiedPain in tel: , [place] thoracic [id number] tel: spineOsteoarthriti [phone] sChronic migraine without aura, intractable, without status migrainosusPain in right hipPain in left shoulderPain in right kneePain in left kneeFibromyalgiaOt her spondylosis, lumbar regionOther spondylosis, cervical regionLong term (current) use of opiate analgesicEncounter for therapeutic drug level monitoring OFFICE VISIT, [facility] Radiculopathy, [facility] Referring [facility] (chief lumbar [place]. Provider: TELEMEDICINE Pain [place] complaint) regionPostlaminect 2 [address] [facility], marquis syndrome, not John, Will J , [address] elsewhere [place] [address] John, classifiedPain in is, [place], [place], Caterina, left hipAnxiety [id number] [place], disorder, , [place]. [place], [place], [address] unspecifiedPain in tel: [phone] , [place] thoracic 76907064 . tel: spineOsteoarthriti tel : [phone] sChronic migraine 70531 45 without aura, intractable, without status migrainosusPain in right hipPain in left shoulderPain in right kneePain in left kneeFibromyalgiaOt her spondylosis, lumbar regionOther spondylosis, cervical regionLong term (current) use of opiate analgesic OFFICE VISIT, [facility] Radiculopathy, [facility] Referring [facility] (chief lumbar 3 [place]. Provider: TELEMEDICINE Pain [place] complaint) regionPostlaminect 2 [address] [facility], marquis syndrome, not Endy Lopez , [address] elsewhere [place] [address] John, classifiedPain in is, [place], [place], [place], left hipAnxiety [id number] [place], disorder, , [place]. [place], [place], [id number] unspecifiedPain in tel: [phone] , [place] thoracic [id number] . tel: spineOsteoarthriti tel :[phone] sChronic migraine 64171 45 without aura, intractable, without status migrainosusPain in right hipPain in left shoulderPain in right kneePain in left kneeFibromyalgiaOt her spondylosis, lumbar regionLong term (current) use of opiate analgesicOther spondylosis, cervical region OFFICE VISIT, [facility] Radiculopathy, Kang s [facility] (chief lumbar [place]. TELEMEDICINE Pain [place] complaint) regionPostlaminect 1 [address] [facility], marquis syndrome, not John, [address] elsewhere [place], classifiedPain in is, [place], C[place]ina, left hipAnxiety [id number] [place], disorder, , [place]. [id number] unspecifiedPain in tel: , [place] thoracic [id number] tel: spineOsteoarthriti [phone] sChronic migraine without aura, intractable, without status migrainosusPain in right hipPain in left shoulderPain in right kneePain in left kneeFibromyalgiaOt her spondylosis, lumbar regionLong term (current) use of opiate analgesicOther spondylosis, cervical region OFFICE/OUTPAT [facility] Other spondylosis, K angas Referring IENT VISIT, [facility] (chief cervical [place]. Provide r: EST Pain [place] complaint) regionRadiculopath 1 [address] [facility], y, lumbar Endy Lopez J, [address] regionPostlaminect [place] [address] John, marquis syndrome, not [place], [place], [place], [place], elsewhere [id number] [place], classifiedPain in , [place]. [place], [place], 914[address]67[address] left hipAnxiety tel: [phone] , [place] disorder, 24921874 . tel: unspecifiedPain in tel : [phone] thoracic [phone] spineOsteoarthriti sChronic migraine without aura, intractable, without status migrainosusPain in right hipPain in left shoulderPain in right kneePain in left kneeFibromyalgiaOt her spondylosis, lumbar regionLong term (current) use of opiate analgesic OFFICE VISIT, [facility] Other spondylosis, K [facility] (chief cervical [place]. TELEMEDICINE Pain [place] complaint) regionRadiculopath 1 [address] [facility], y, lumbar John, [address] [facility] regionPostlaminect [place], marquis syndrome, not is, [place], C[place]ina, elsewhere [id number] [place], classifiedPain in , [place]. 714041990 left hipAnxiety tel: , [place] disorder, [id number] tel: unspecifiedPain in 48004702 thoracic spineOsteoarthriti sChronic migraine without aura, intractable, without status migrainosusPain in right hipPain in left shoulderPain in right kneePain in left kneeFibromyalgiaOt her spondylosis, lumbar regionLong term (current) use of opiate analgesic OFFICE VISIT, [facility] Other spondylosis, Sep-0 K [facility] (chief cervical [place]. Provider: TELEMEDICINE Pain [place] complaint) regionRadiculopath 1 [address] [facility], y, lumbar John, Will J, [address] regionPostlaminect [place] [address] John, marquis syndrome, not [place], [place], John, Caterina, elsewhere [id number] [place], classifiedPain in , [place]. [place], [place], [address] left hipAnxiety tel: [phone] , [place] disorder, 45329030 . tel: unspecifiedPain in tel : [phone] thoracic [phone] spineOsteoarthriti sChronic migraine without aura, intractable, without status migrainosusPain in right hipPain in left shoulderPain in right kneePain in left kneeFibromyalgiaOt her spondylosis, lumbar regionLong term (current) use of opiate analgesic [facility] Encounter for Mario Referr ing [facility] therapeutic drug [place]. Pro vider: Pain [place] level 1 [address] [facility], monitoringLong John, Will J, [address] term (current) use [place] [address] John, of opiate is, [place], [place], [place], analgesic [id number] [place], , [place]. [place], [place], [address] tel:+ [phone] , [place] 54606054 . tel: tel:+ [phone] OFFICE/OUTPAT [facility] Other spondylosis, K anglucrecia Referring IENT VISIT, [facility] (chief lumbar [place]. Provider : EST Pain [place] complaint) regionFibromyalgia 1 [address] [facility], Pain in left John, Will J, [address] kneePain in right [place] [address] John, kneePain in left is, [place], John, Caterina, shoulderPain in [id number] [place], right hipChronic , [place]. [place], [place], 669[address] migraine without tel:+ [phone] , [place] aura, intractable, 45797997 . tel: without status tel:[phone] migrainosusOsteoar 8412 345 thritisPain in thoracic spineAnxiety disorder, unspecifiedPain in left hipPostlaminectomy syndrome, not elsewhere classifiedRadiculo shane, lumbar regionOther spondylosis, cervical regionLong term (current) use of opiate analgesicEncounter for therapeutic drug level monitoring OFFICE VISIT, [facility] Other spondylosis, shlomo Referring EST [facility] (chief lumbar [place]. Provider: TELEMEDICINE Pain [place] complaint) regionFibromyalgia 1 [address] [facility], Pain in left John, Will J, [address] kneePain in right [place] [address] John, kneePain in left is, [place], [place], Caterina, shoulderPain in [id number] [place], right hipChronic , [place]. [place], [place], 694106067 migraine without tel:+ [phone] , [place] aura, intractable, 65112672 . tel: without status tel:+ [phone] migrainosusOsteoar 8412 345 thritisPain in thoracic spineAnxiety disorder, unspecifiedPain in left hipPostlaminectomy syndrome, not elsewhere classifiedRadiculo shane, lumbar regionOther spondylosis, cervical regionLong term (current) use of opiate analgesic OFFICE VISIT, [facility] Other spondylosis, K ang Referring [facility] (chief lumbar [place]. Provider: TELEMEDICINE Pain [place] complaint) regionFibromyalgia 1 [address] [facility], Pain in left John, Will J, [address] kneePain in right [place] [address] John, kneePain in left is, [place], [place], [place], shoulderPain in [id number] [place], right hipChronic , [place]. [place], [place], 772[address] migraine without tel:+ [phone] , [place] aura, intractable, 69220346 . tel: without status tel:+ [phone] migrainosusOsteoar 8412 345 thritisPain in thoracic spineAnxiety disorder, unspecifiedPain in left hipPostlaminectomy syndrome, not elsewhere classifiedRadiculo shane, lumbar regionOther spondylosis, cervical regionLong term (current) use of opiate analgesic OFFICE VISIT, [facility] Other spondylosis, 0 K [facility] Referring [facility] (chief lumbar [place]. Provider: TELEMEDICINE Pain [place] complaint) [facility]Fibromyalgia 1 [facility] [facility], Pain in left John, Will J, [address] kneePain in right [place] [address] John, kneePain in left is, [place], John, Caterina, shoulderPain in [id number] [place], right hipChronic , [place]. [place], [place], 6[address]24 migraine without tel:+ [phone] , [place] aura, intractable, [id number] . tel: without status tel: [phone] migrainosusOsteoar 8412 345 thritisPain in thoracic spineAnxiety disorder, unspecifiedPain in left hipPostlaminectomy syndrome, not elsewhere classifiedRadiculo shane, lumbar regionOther spondylosis, cervical regionLong term (current) use of opiate analgesic [facility] Other spondylosis, March-0 Mario Referring [facility] (chief lumbar 4 [place]. Provider: Pain [place] complaint) regionFibromyalgia 1 [address] [facility], Pain in left John, Will J, [address] kneePain in right [place] [address] John, kneeChronic is, [place], [place], C[place]ina, migraine without [id number] [place], aura, intractable, , [place]. [place], [place] , 333550908 without status tel: [phone] , [place] migrainosusPain in 33539845 . tel: right hipPain in tel: [phone] left shoulderPain 34740 45 in right shoulderOsteoarthr itisPain in thoracic spineAnxiety disorder, unspecifiedPain in left hipPostlaminectomy syndrome, not elsewhere classifiedRadiculo shane, lumbar regionOther spondylosis, cervical regionLong term (current) use of opiate analgesic OFFICE VISIT, [facility] Other spondylosis, Jan-2 K [facility] Referring [facility] (chief lumbar 5 [place]. Provider: TELEMEDICINE Pain [place] complaint) regionFibromyalgia 1 [address] [facility], Pain in left John, Will J, [address] kneePain in right [place] [address] John, kneeChronic is, [place], [place], Caterina, migraine without [id number] [place], aura, intractable, , [place]. [place], [place] , [id number] without status tel: [phone] , [place] migrainosusPain in 24460444 . tel: right hipPain in tel: [phone] left shoulderPain 53314 45 in right shoulderOsteoarthr itisPain in thoracic spineAnxiety disorder, unspecifiedPain in left hipPostlaminectomy syndrome, not elsewhere classifiedRadiculo shane, lumbar regionOther spondylosis, cervical regionLong term (current) use of opiate analgesic OFFICE VISIT, [facility] Pain in left [facility] Referring [facility] (chief hipPostlaminectomy [place]. P rovider: TELEMEDICINE Pain [place] complaint) syndrome, not 1 [address] [facility], elsewhere John, Endy J, [address] classifiedRadiculo [place] [address] John, shane, lumbar is, [place], [place], [place], regionOther [id number] [place], spondylosis, , [place]. s, [place], [address]25[address] cervical tel: [phone] , [place] regionOther [id number] . tel: spondylosis, tel: [phone] lumbar 4536367 regionFibromyalgia Pain in left kneePain in right kneeChronic migraine without aura, intractable, without status migrainosusPain in right hipPain in left shoulderPain in right shoulderOsteoarthr itisPain in thoracic spineAnxiety disorder, unspecifiedLong term (current) use of opiate analgesic OFFICE VISIT, [facility] Pain in left [facility] Referring [facility] (chief hipPostlaminectomy [place]. P rovider: TELEMEDICINE Pain [place] complaint) syndrome, not 1 [address] [facility], elsewhere John, Endy J, [address] classifiedRadiculo [place] [address] John, shane, lumbar is, [place], John, [place], regionOther [id number] [place], spondylosis, , [place]. [place], [place], [id number] cervical tel: [phone] , [place] regionOther [id number] . tel: spondylosis, tel: [phone] lumbar 0493601 regionFibromyalgia Pain in left kneePain in right kneeChronic migraine without aura, intractable, without status migrainosusPain in right hipPain in left shoulderPain in right shoulderOsteoarthr itisPain in thoracic spineAnxiety disorder, unspecifiedLong term (current) use of opiate analgesic OFFICE VISIT, [facility] Pain in left as Referring [facility] (chief hipPostlaminectomy [place]. P rovider: TELEMEDICINE Pain [place] complaint) syndrome, not 0 [address] [facility], elsewhere Endy Lopez J, [address] classifiedRadiculo [place] [address] John, shane, lumbar is, [place], John, [place], regionOther [id number] [place], spondylosis, , [place]. [place], [place], [address] cervical tel: [phone] , [place] regionOther [id number] . tel: spondylosis, tel: 2 [phone] lumbar 4387411 regionFibromyalgia Pain in left kneePain in right kneeChronic migraine without aura, intractable, without status migrainosusPain in right hipPain in left shoulderPain in right shoulderOsteoarthr itisPain in thoracic spineAnxiety disorder, unspecifiedLong term (current) use of opiate analgesic OFFICE VISIT, [facility] Back Pain Postlaminectomy Gonzalez as Referring [facility] (chief syndrome, not [place]. Provid er: TELEMEDICINE Pain [place] complaint) elsewhere 0 [address] [facility], classifiedRadiculo Endy Lopez J, [address] shane, lumbar [place] [address] John, regionOther is, [place], John, Cateirna, spondylosis, [id number] [place], cervical , [place]. s, [place], 226707135 regionOther tel: [phone] , [place] spondylosis, [id number] . tel: lumbar tel:2 [phone] regionFibromyalgia 8412 345 Pain in left kneePain in right kneeChronic migraine without aura, intractable, without status migrainosusPain in left hipPain in right hipPain in left shoulderPain in right shoulderOsteoarthr itisPain in thoracic spineAnxiety disorder, unspecifiedLong term (current) use of opiate analgesic OFFICE/OUTPAT [facility] Back Pain Postlaminectomy Carlos as Referring IENT VISIT, [facility] (chief syndrome, not [place]. Pr ovider: EST Pain [place] complaint) elsewhere 0 7235 [facility], classifiedRadiculo Endy Lopez J, [address] shane, lumbar [place] 7235 [facility] John, regionOther is, [place], John, Caterina, spondylosis, [id number] [place], cervical , [place]. s, MN, 041135907 regionOther tel: [phone] , [place] spondylosis, [id number] . tel: lumbar tel: [phone] regionFibromyalgia 8412 345 Pain in left kneePain in right kneeChronic migraine without aura, intractable, without status migrainosusPain in left hipPain in right hipPain in left shoulderPain in right shoulderOsteoarthr itisPain in thoracic spineAnxiety disorder, unspecifiedLong term (current) use of opiate analgesicEncounter for therapeutic drug level monitoring OFFICE VISIT, [facility] Back Pain Postlaminectomy Jul- Gonzalez as Referring [facility] (chief syndrome, not [place]. Provid er: TELEMEDICINE Pain [place] complaint) elsewhere 0 7235 [facility], classifiedRadiculo Endy Lopez J, 7235 [facility] shane, lumbar [place] 7235 [facility] John, regionOther is, [place], John, Caterina, spondylosis, [id number] [place], cervical , [place]. s, MN, 850843722 regionOther tel: [phone] , [place] spondylosis, [id number] . tel: lumbar regionLong tel: [phone] term (current) use 8412 345 of opiate analgesicAnxiety disorder, unspecifiedFibromy algiaPain in left kneePain in right kneeChronic migraine without aura, intractable, without status migrainosusPain in left hipPain in right hipPain in left shoulderPain in right shoulderOsteoarthr itisPain in thoracic spine OFFICE VISIT, [facility] Back Pain Postlaminectomy Yeimy en Referring [facility] (chief syndrome, not Venu. Provid er: TELEMEDICINE Pain [place] complaint) elsewhere 0 14[address] [facility], [address] Jermaine l J, [address] shane, lumbar 11 Umair [address] s John, regionOther 100, John, Caterina, spondylosis, [place], cervical e, MN, s, MN, 046497367 regionOther [id number] [phone] 48 , [place] spondylosis, , [place]. . tel: lumbar regionLong tel: te l:+ [phone] term (current) use [id number] 841 2345 of opiate analgesicAnxiety disorder, unspecified [facility] Postlaminectomy RN RN. Refe [facility] syndrome, not [address] Prov ider: Pain Caterina elsewhere 0 Peter [facility], classified Minnej[place] Patel, [address] is, [place], [address] John, [id number] John, Caterina, , [place]. [place], tel: s, MN, [phone] [id number] [phone] , [place] . tel: tel: [phone] [facility] Postlaminectomy Kokayeff Ref [facility] Surgery syndrome, not Gi. Provider: Pain Center elsewhere 0 [facility], [facility] Endy Lopez, [address] [place] [address] John, is, [place], John, [place], [id number] [place], , [place]. s, MN, 388590647 tel:[phone] , [place] [id number] . tel: tel: [phone] OFFICE VISIT, [facility] Back Pain Postlaminectomy Kanga s Referring [facility] (chief syndrome, not [facility]. Provider: TELEMEDICINE Pain complaint) elsewhere 0 7235 [facility], classifiedRadiculo Endy Lopez, [address] shane, lumbar [place] [address] John, regionOther is, [place], John, [place], spondylosis, [id number] [place], cervical , [place]. s, MN, 315382431 regionOther tel: [phone] , [place] spondylosis, 45101038 . tel: lumbar regionLong tel: [phone] term (current) use 8412 345 of opiate analgesicAnxiety disorder, unspecified [facility] Postlaminectomy [facility] syndrome, not 2- [place]. Provid er: Pain [place] elsewhere 0 7235 [facility], classified Endy Lopez, [address] [place] [address] John, is, [place], John Caterina, [id number] [place], , [place]. s, MN, 617113293 tel: [phone] , [place] [id number] . tel: tel: [phone] [facility], not Gi. Provider: Pain Center elsewhere 0 7235 [facility], classified Endy Lopez, [address] [place] [address] John, is, [place], John, [place], [id number] [place], , [place]. s, MN, 005188170 tel: [phone] , [place] [id number] . tel: tel: [phone] OFFICE VISIT, [facility] Pain Postlaminectomy [facility] (chief syndrome, not [place]. Provider: TELEMEDICINE Pain complaint) elsewhere 0 7235 [facility], classifiedRadiculo Endy Lopez, [address] shane, lumbar [place] [address] John, regionLong term is, [place], John, [place], (current) use of [id number] [place], opiate , [place]. s, MN, 702882629 analgesicOther tel: [phone] , [place] spondylosis, 00475618 . tel: cervical tel: [phone] regionOther [id number] spondylosis, lumbar region [facility] No Information [facility] [place]. Pain Caterina 0 7235 [facility] Clinic, John, [address] [place], is, [place], [place], [id number] [place], , [place]. 164522838 tel: , [place] [id number] tel: [phone] OFFICE VISIT, [facility] Back Pain CervicalgiaPostlam K shlomo Referring [facility] (chief inectomy syndrome, [place]. P rovider: TELEMEDICINE Pain [place] complaint) not elsewhere 0 7235 [facility], classifiedRadiculo John, Will J, [address] shane, lumbar [place] [address] John, regionLong term is, [place], John, Caterina, (current) use of 643808647 [place], opiate analgesic , [place]. s, MN, 131199109 tel: [phone] , [place] [id number] . tel: tel: [phone] Psych Dx Eval [facility] Pain disorder with Juliana e [facility] related Maikel Provider: Pain psychological 0 Peg. 7235 [facility], factorsBipolar Ohms Will J, [address] disorder John, [address] John, [place], [place], is, [place], [place], 339868360 s, [place], [address]9909970 , [place]. [address] , [place] tel: . tel: [phone] tel: [phone] OFFICE VISIT, [facility] Back Pain Postlaminectomy Michael zaldivar Referring [facility] (chief syndrome, not [place]. Provider: TELEMEDICINE Pain complaint) elsewhere 0 [address] [facility], classifiedLong John, Will J, [address] term (current) use [place] 7 235 [address] John, of opiate is, [place], John, [place], analgesicRadiculop [id number] [place], athy, lumbar , [place]. s, MN, 640689349 regionCervicalgia tel: [phone] , [place] [id number] . tel: tel: [phone] [facility] No Information [facility] Peter. Pain [place] 0 7235 [facility] Clinic, John, [address] [place] John, is, [place], Caterina, [id number] [place], , [place]. 161255514 tel: , [place] [id number] tel: [phone] OFFICE/OUTPAT [facility] Back Pain Postlaminectomy Gonzalez as Referring IENT VISIT, [facility] (chief syndrome, not [place]. Pr ovider: EST Pain [place] complaint) elsewhere 0 7235 [facility], classifiedLong John, Will J, [address] term (current) use [place] 7 235 [address] John, of opiate is, [place], John, Caterina, analgesicCervicalg 928662407 [place], iaRadiculopathy, , [place]. s, [place], 633747021 lumbar region tel: [phone] , [place] [id number] . tel: tel:[phone] [facility] Postlaminectomy Garcia Refe rring [facility] Surgery syndrome, not Viry. Provider: Pain Center elsewhere 0 [facility], [facility] John, Endy J, [address] [place] [address] John, is, [place], John, [place], [id number] [place], , [place]. s, [place], 313157449 tel: [phone] , US [id number] . tel: tel:[phone] OFFICE/OUTPAT [facility] Back Pain Postlaminectomy Carlos as Referring IENT VISIT, [facility] (chief syndrome, not [place]. Pr ovider: EST Pain [place] complaint) elsewhere 0 7235 [facility], classifiedCervical John, Will J, [address] giaRadiculopathy, [place] 72 35 Oh[address] John, lumbar regionLong is, [place], John, [place], term (current) use [id number] [place], of opiate , [place]. s, MN, 089042116 analgesicCarrier tel: [phone] , [place] of Methicillin 10237644 . tel: susceptible tel: [phone] Staphylococcus 6030195 aureusCarrier of Methicillin resistant Staph aureusMethicillin resis staph infct causing diseases classd elswhrEncounter for therapeutic drug level monitoring [facility] Postlaminectomy [facility] syndrome, not [place]. Pain Caterina elsewhere 0 7235 [facility] Clinic, classified John, [address] [place], is, [place], Caterina, [id number] [place], , [place]. 729405825 tel: , US [id number] tel: [phone] OFFICE/OUTPAT [facility] Back Pain Radiculopathy, s Referring IENT VISIT, [facility] (chief lumbar 7-202 [place]. Provider : EST Pain [place] complaint) regionPostlaminect 0 7235 [facility], marquis syndrome, not John, Will J , [address] elsewhere [place] [address] John, classifiedCervical is, [place], John, [place], giaLong term [id number] [place], (current) use of , [place]. s, MN, 636762976 opiate analgesic tel: [phone] , [place] [id number] . tel: tel: [phone] OFFICE/OUTPAT [facility] Back Pain Radiculopathy, s Referring IENT VISIT, [facility] (chief lumbar 7-201 [place]. Provider : EST Pain [place] complaint) regionCervicalgiaL 9 7235 [facility], beryl term (current) John, Will J, [address] use of opiate [place] 7235 O hms John, analgesicPostlamin is, [place], John, Caterina, ectomy syndrome, 337139763 [place], not elsewhere , [place]. s, MN, 134845095 classified tel: [phone] , [place] [id number] . tel: tel: [phone] OFFICE/OUTPAT [facility] Back Pain Chronic pain Referring IENT VISIT, [facility] (chief syndromePostlamine 6-201 [place] . Provider: EST Pain [place] complaint) ctomy syndrome, 9 [address] [facility], not elsewhere Endy Lopez J, [address] classifiedRadiculo [place] 7 235 [address] John, shane, lumbar is, [place], John, Caterina, regionCervicalgiaL [id number] [place], beryl term (current) , [place]. s, [place] , 595205042 use of opiate tel: [phone] , [place] analgesic [id number] . 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 Provider: EST Pain [place] complaint) opiate 9 7235 [facility], analgesicPostlamin Endy Lopez J, [address] ectomy syndrome, [place] 723 5 [address] John, not elsewhere is, [place], John, Caterina, classifiedRadiculo 535961151 [place], shane, lumbar , [place]. s, MN, 332263440 regionCervicalgia tel: [phone] , [place] 59499522 . tel: tel: [phone] OFFICE/OUTPAT [facility] Back Pain Postlaminectomy Gonzalez as Referring IENT VISIT, [facility] (chief syndrome, not 0-201 [place]. Pr ovider: EST Pain [place] complaint) elsewhere 9 7235 [facility], classifiedLow back Endy Lopez J, [address] painCervicalgiaLon [place] 7 235 [address] John, g term (current) is, [place], John, Caterina, use of opiate 885434634 [place], analgesic , [place]. s, [place], 877013743 tel: [phone] , [place] 07887676 . tel: tel:[phone] OFFICE/OUTPAT [facility] Back Pain Postlaminectomy Carlos as Referring IENT VISIT, [facility] (chief syndrome, not 0-201 [place]. Pr ovider: EST Pain [place] complaint) elsewhere 9 7235 [facility], classifiedLow back John, Will J, [address] painCervicalgiaLon [place] 7 235 [address] John, g term (current) is, [place], John, Caterina, use of opiate 915502040 [place], analgesic , [place]. s, [place], 946017602 tel:[phone] , [place] [id number] . tel: tel: [phone] OFFICE/OUTPAT [facility] Back Pain Postlaminectomy Gonzalez as Referring IENT VISIT, [facility] (chief syndrome, not 1-201 [place]. Pr ovider: EST Pain [place] complaint) elsewhere 9 7235 [facility], classifiedLow back John, Will J, [address] painCervicalgiaEnc [place] 7 235 [address] anya Lopez for is, [place], John, [place], therapeutic drug [id number] [place], level , [place]. s, MN, 746854156 monitoringLong tel:43 , [place] term (current) use 22899945 . tel: of opiate tel: [phone] analgesic [phone] OFFICE/OUTPAT [facility] Back Pain Postlaminectomy Gonzalez as Referring IENT VISIT, [facility] (chief syndrome, not 1-201 [place]. Pr ovider: EST Pain [place] complaint) elsewhere 9 7235 [facility], classifiedLow back John, Will J, [address] painCervicalgiaLon [place] 7 235 [address] John, g term (current) is, [place], John, [place], use of opiate 791542420 [place], analgesic , [place]. s, MN, 182101899 tel:[phone] , US 93915830 . tel: tel:[phone] OFFICE/OUTPAT [facility] Back Pain Postlaminectomy Apr-0 Garcia Referring IENT VISIT, [facility] (chief syndrome, not 2-201 Viry. Pr ovider: EST Pain [place] complaint) elsewhere 9 7235 [facility], classifiedRadiculo Endy Lopez, [address] shane, lumbar [place] 7235 [facility] John, regionCervicalgiaL is, [place], Caterina Lopez, beryl term (current) 125737807 [place], use of opiate , [place]. s, [place], 182828676 analgesic tel:+ [phone] , [place] 20535225 . tel: tel:[phone] OFFICE/OUTPAT [facility] Back Pain Chronic pain Referring IENT VISIT, [facility] (chief syndromeRadiculopa 3-201 [place] . Provider: EST Pain C[place] complaint) thy, lumbar 9 7235 [facility], regionLow back Endy Lopez, [address] painLong term [place] 7235 [facility] John, (current) use of [address], [place], opiate analgesic 463288470 [place], , [place]. [place], [place], 139438795 tel: [phone] , [place] [id number] . tel: tel:[phone] [facility] Postlaminectomy Refe rring [facility] syndrome, not 3-201 [place]. Provid er: Pain [place] elsewhere 9 7235 [facility], classified Endy Lopez, [address] [place] [address] John, is, REID, Caterina Lopez, [id number] [place], , [place]. s, [place], 788592369 tel: [phone] , [place] [id number] . tel: tel:[phone] OFFICE/OUTPAT [facility] Back Pain Radiculopathy, Oct- Kanga s Referring IENT VISIT, [facility] (chief lumbar regionLow 3-201 [place]. Provider: EST Pain [place] complaint) back painLong term 8 7235 [facility], (current) use of Endy Lopez, [address] opiate analgesic [place] 723 5 [address] John, is, [place], John [place], 577889256 [place], , [place]. s, MN, 938830871 tel:[phone] , [place] 97976699 . tel: tel: [phone] [facility] Postlaminectomy Nov-0 Mario Refe [facility] syndrome, not 1- [place]. Provid er: Pain Caterina elsewhere 8 7235 [facility], classified John Will J, [address] [place] 7235 [facility] John, is, [place], John, [place], [id number] [place], , [place]. s, MN, 202949396 tel:[phone] , US 22836659 . tel: tel: [phone] [facility] Postlaminectomy Oct-2 Garcia Refe [facility] Surgery syndrome, not - Viry. Provider: Pain Center elsewhere 8 7235 [facility], classified John Will J, [address] [place] [address] John, is, [place], John [place], [id number] [place], , [place]. s, MN, 702345659 tel:[phone] , US [id number] . tel: tel: [phone] OFFICE/OUTPAT [facility] Back Pain Postlaminectomy Oct-2 Gonzalez as Referring IENT VISIT, [facility] (chief syndrome, not 2-201 [place]. Pr ovider: EST Pain [place] complaint) elsewhere 8 7235 [facility], classifiedRadiculo John, Will J, [address] shane, lumbar [place] [address] John, regionLow back is, [place], John, [place], pain 066415094 [place], , [place]. s, [place], 596660465 tel:[phone] , [place] [id number] . tel: tel: [phone] [facility] Postlaminectomy Oct-0 Mario Refe [facility] syndrome, not 1- [place]. Provid er: Pain [place] elsewhere 8 7235 [facility], classifiedLow back John, Will J, [address] pain [place] [address] John, is, [place], John, Caterina, 579003373 [place], , [place]. s, [place], 190066284 tel:+ [phone] , [place] [id number] . tel: tel:[phone] [facility] Postlaminectomy Sep-2 Garcia Refe [facility] Surgery syndrome, not 7- Viry. Provider: Pain Center elsewhere 8 7235 [facility], classified John, Endy J, [address] [place] [address] John, is, [place], John, [place], [id number] [place], , [place]. s, [place], 576237338 tel: [phone] , [place] [id number] . tel: tel:[phone] OFFICE/OUTPAT [facility] Back Pain Chronic pain Sep-1 Mario Referring IENT VISIT, [facility] (chief syndromePostlamine 9 [place] . Provider: EST Pain [place] complaint) ctomy syndrome, 8 [address] [facility], not elsewhere Endy Lopez J, [address] classifiedRadiculo [place] 7 235 [address] John, shane, lumbar is, [place], John, Caterina, regionLow back 836817416 [place], pain , [place]. [place], [place], 798934778 tel:+ [phone] , [place] 31478751 . tel: tel:[phone] OFFICE/OUTPAT [facility] Back Pain Chronic pain Sep-0 Mario Referring IENT VISIT, [facility] (chief syndromeCervicalgi 5- [place] . Provider: EST Pain [place] complaint) aPostlaminectomy 8 7235 [facility], syndrome, not John, Will J, [address] elsewhere [place] 7[address] John, classifiedLow back is, [place], John, Caterina, painRadiculopathy, 900398861 [place], lumbar region , [place]. s, [place], 722166218 tel: [phone] , [place] 81693844 . tel: tel:[phone] OFFICE/OUTPAT [facility] Back Pain Postlaminectomy Gonzalez as Referring IENT VISIT, [facility] (chief syndrome, not 6 [place]. Pr ovider: EST Pain [place] complaint) elsewhere 8 7235 [facility], classifiedChronic Endy Lopez J , [address] pain [place] [address] John, syndromeCervicalgi is, [place], John, Caterina, aLow back pain [id number] [place], , [place]. s, [place], 066891567 tel:[phone] , [place] 58550836 . tel: tel:[phone] OFFICE/OUTPAT [facility] Back Pain Chronic pain Mario Referring IENT VISIT, [facility] (chief syndromeCervicalgi [place] . Provider: EST Pain [place] complaint) aLow back pain 8 [address]235 [facility], Endy Lopez, [address] [place] [address] John, is, [place], John [place], [id number] [place], , [place]. [place], [place], 798205037 tel:[phone] , [place] [id number] . tel: tel: [phone] OFFICE/OUTPAT [facility] Back Pain CervicalgiaChronic K angas Referring IENT VISIT, [facility] (chief pain syndromeLow 3201 [place]. Provider: EST Pain [place] complaint) back painLumbago 8 [address]235 [facility], with sciatica, Endy Lopez J, [address] left [place] 7235 Oh[address] John, sidePostlaminectom is, [place], Jonh, Caterina, y syndrome, not [id number] [place], elsewhere , [place]. [place], [place], 658189991 classifiedLong tel:438 , [place] term (current) use 41785428 . tel: of opiate tel: [phone] analgesic [phone] OFFICE/OUTPAT [facility] Back Pain CervicalgiaChronic Apr-0 K angas Referring IENT VISIT, [facility] (chief pain syndromeLow 6- [place]. Provider: EST Pain [place] complaint) back 8 7235 [facility], painPostlaminectom Endy Lopez J, [address] y syndrome, not [place] 7235 [address] John, elsewhere is, MNJohn [place], classified [id number] [place], , [place]. [place], [place], 410950954 tel: [phone] , US [id number] . tel: tel: [phone] [facility] CervicalgiaChronic Feb0 K angas Referring IENT VISIT, [facility] (chief pain syndromeLow 6 [place]. Provider: EST Pain [place] complaint) back 8 7235 [facility], painPostlaminectom Endy Lopez J, [address] y syndrome, not [place] 7235 [address] John, elsewhere is, [place], Caterina Lopez, classified [id number] [place], , [place]. [place], [place], 887417942 tel: [phone] , US [id number] . tel: tel: [phone] OFFICE/[facility] Back Pain CervicalgiaChronic Dec0 K angas Referring IENT VISIT, [facility] (chief pain syndromeLow 8201 [place]. Provider: EST Pain [place] complaint) back 7 7235 [facility], painPostlaminectom JohnEndy J, [address] y syndrome, not [place] 7[address] John, elsewhere is, MNJohn [place], classified [id number] [place], , [place]. s, [place], 704708229 tel: [phone] , US 80174789 . tel: tel: [phone] OFFICE/OUTPAT [facility] Back Pain CervicalgiaLow Kanga s Referring IENT VISIT, [facility] (chief back 0-201 [place]. Provider : EST Pain [place] complaint) painPostlaminectom 7 7235 [facility], y syndrome, not John, Endy Patel, [address] elsewhere [place] [address] John, classified is, [place], Chandana Lopeza, [id number] [place], , [place]. [place], [place], 470572023 tel: [phone] , US [id number] . tel: tel:+ [phone] OFFICE/OUTPAT [facility] Pain Postlaminectomy Gonzalez as Referring IENT VISIT, [facility] (chief syndrome, not [place]. Pr ovider: EST Pain [place] complaint) elsewhere 7 7235 [facility], classifiedLow back Endy Lopez, [address] painCervicalgia [place] 7235 [facility] John, is, [place], Caterina Lopez, [id number] [place], , [place]. s, [place], 523902308 tel: [phone] , [place] [id number] . tel: tel:[phone] OFFICE/OUTPAT [facility] Back Pain Low back Mario Ref erring IENT VISIT, [facility] (chief painCervicalgiaChr [place] . Provider: EST Pain [place] complaint) onic pain 7 7235 [facility], syndromePostlamine Endy Lopez J, [address] ctomy syndrome, [place] 7[address] John, not elsewhere [place], [place], [place], [place], classified [id number] [place], , [place]. [place], [place], [id number] tel: [phone] , [place] [id number] . tel: tel:[phone] OFFICE/OUTPAT [facility] Back Pain Low back March- Mario Ref erring IENT VISIT, [facility] (chief painCervicalgiaChr Rosetta . Provider: EST Pain Caterina complaint) onic pain 7 [address] [facility], syndromePostlamine Endy Lopez J, 7[address] [facility] ctomy syndrome, [place] [address] John, not elsewhere is, [place], Caterina Lopez, classified [id number] [place], , [place]. [place], [place], [address] tel: [phone] , [place] [id number] . tel: tel:[phone] OFFICE/OUTPAT [facility] Back Pain Low back May-0 Mario Ref erring IENT VISIT, [facility] (chief painCervicalgiaChr Rosetta . Provider: EST Pain [place] complaint) onic pain syndrome 7 7235 [facility], Endy Lopez, [address] [place] [address] John, is, [place], Caterina Lopez, [id number] [place], , [place]. [place], [place], [id number] tel:[phone] , [place] [id number] . tel: tel: [phone] OFFICE/OUTPAT [facility] Back Pain CervicalgiaChronic Apr-0 K angas Referring IENT VISIT, [facility] (chief pain syndromeLow [place]. Provider: EST Pain [place] complaint) back 7 7235 [facility], painPostlaminectom Endy Lopez, [address] y syndrome, not [place] [address] John, elsewhere is, [place], classified [id number] Denisa [place], , [place]. [place], [place], [id number] tel:[phone] , [place] [id number] . tel: tel: [phone] OFFICE/OUTPAT [facility] Back Pain Low back Mar-0 Mario Ref erring IENT VISIT, [facility] (chief painCervicalgiaChr Ros[place] . Provider: EST Pain Caterina complaint) onic pain 7 7[address] [facility], syndromePostlamine Endy Lopez J, [address] ctomy syndrome, [place] [address] John, not elsewhere is, [place], Caterina Lopez, classified [id number] [place], , [place], [place], [address] tel: [phone] , [place] [id number] . tel: tel: [phone] OFFICE/OUTPAT [facility] Back Pain CervicalgiaLow Kanga s Referring IENT VISIT, [facility] (chief back painChronic Rosetta. Provider: EST Pain Caterina complaint) pain syndrome [address] [facility], John Will J, [address] [place] [address] [place], is, [place], Caterina Lopez, [id number] [place], , [place]. [place], [place], [address] tel: [phone] , [place] [id number] . tel: tel: [phone] OFFICE/OUTPAT [facility] Back Pain Low back Mario Ref erring IENT VISIT, [facility] (chief painCervicalgiaChr Ros[place] . Provider: EST Pain Caterina complaint) onic pain syndrome 7 7[address] [facility], John Will J, [address] [place] [address] [place], is, [place], Caterina Lopez, [id number] Denisa [place], , [place]. [place], [place], [id number] tel: [phone] , [place] [id number] . tel: tel: [phone] OFFICE/OUTPAT [facility] Back Pain Low back Mario Ref erring IENT VISIT, [facility] (chief painCervicalgiaPos [facility] . Provider: EST Pain [place] complaint) tlaminectomy 6 7235 [facility], syndrome, not John, Will J, [address] elsewhere [place] 7235 [facility] John, classifiedChronic is, [place], Caterina Lopez, pain syndrome [id number] Janae [place], , [place]. [place], [place], [address] tel: [phone] , [place] [id number] . tel: tel: [phone] OFFICE/OUTPAT [facility] Back Pain Low back Mario Ref erring IENT VISIT, [facility] (chief painCervicalgiaPos [place] . Provider: EST Pain Caterina complaint) tlaminectomy 6 7235 [facility], syndrome, not John, Will J, [address] elsewhere [place] [address] John, classified is, [place], [place], [place], [id number] [place], , [place]. [place], [place], [id number] tel: [phone] , [place] [id number] . tel: tel: [phone] OFFICE/OUTPAT [facility] Back Pain Lumbago with Van Referring IENT VISIT, [facility] (chief sciatica, left [place] Provider: EST Pain Caterina complaint) sideLong term 6 Ekra. [facility], (current) use of [address] Will J, [address] opiate John, [address] John, analgesicCervicalg [place] Kal[place] e, Caterina, ia is, [place], [place], [id number] s, [place], [id number] , [place]. [phone] , [place] tel: . tel: [phone] tel: [phone] OFFICE/OUTPAT [facility] Back Pain CervicalgiaLow Kanga s Referring IENT VISIT, [facility] (chief back Rosetta. Provider : EST Pain Caterina complaint) painPostlaminectom 6 7235 [facility], y syndrome, not John, Will J, [address] elsewhere [place] [address] John, classified is, [place], [place], Caterina, [id number] [place], , [place]. [place], [place], [id number] tel: [phone] , [place] [id number] . tel: tel: [phone] OFFICE/OUTPAT [facility] Back Pain Low back Jun- Mario Ref erring IENT VISIT, [facility] (chief painCervicalgiaPos [place] . Provider: EST Pain [place] complaint) tlaminectomy 6 7235 [facility], syndrome, not John, Will J, [address] elsewhere [place] [address] John, classified [place], [place], [place], [place], [id number] [place], , [place]. [place], [place], [address] tel: [phone] , [place] [id number] . tel: tel:[phone] OFFICE/OUTPAT [facility] Back Pain CervicalgiaLow Kanga s Referring IENT VISIT, [facility] (chief back painLumbago 5-201 [place]. Provider: EST Pain Caterina complaint) with sciatica, 6 7235 [facility], left side John, Will J, [address] [place] [address] John, is, [place], [place], Caterina, [id number] [place], , [place]. [place], [place], [address] tel:[phone] , [place] [id number] . tel: tel:[phone] OFFICE/OUTPAT [facility] Back Pain Low back Kanu- Mario Ref erring IENT VISIT, [facility] (chief painCervicalgia [place]. Provider: EST Pain [place] complaint) 6 7235 [facility], John, Will J, [address] [place] [address] John, is, [place], [place], Caterina, [id number] [place], , [place]. [place], [place], [address] tel:[phone] , [place] [id number] . tel: tel: [phone] OFFICE/OUTPAT [facility] Back Pain CervicalgiaLow March- Kanga s Referring IENT VISIT, [facility] (chief back painLumbago 0-201 [place]. Provider: EST Pain [place] complaint) with sciatica, 6 7235 [facility], left John, Will J, [address] sidePostlaminectom [place] 7 [address] John, y syndrome, not is, [place], [place], [place], elsewhere [id number] [place], classified , [place]. [place], [place], [address] tel: [phone] , [place] [id number] . tel: tel: [phone] OFFICE/OUTPAT [facility] Back Pain Low back Apr-2 Mario Ref erring IENT VISIT, [facility] (chief painCervicalgiaLum 2 [place] . Provider: EST Pain [place] complaint) bago with 6 [address] [facility], sciatica, left John, Will J, [address] side [place] [address] John, is, [place], [place], Caterina, [id number] [place], , [place]. [place], [place], [address] tel: [phone] , [place] [id number] . tel: tel: [phone] OFFICE/OUTPAT [facility] Back Pain Low back Apr-0 Mario Ref erring IENT VISIT, [facility] (chief painCervicalgia 6 [place]. Provider: EST Pain Caterina complaint) 6 [address] [facility], John, Will J, [address] [place] [address] [place], is, [place], [place], Caterina, [id number] [place], , [place]. [place], [place], [address] tel: [phone] , [place] [id number] . tel: tel: [phone] OFFICE/OUTPAT [facility] Back Pain Low back Mar-2 Mario Ref erring IENT VISIT, [facility] (chief painCervicalgiaLum 5 [place] . Provider: NEW Pain Caterina complaint) bago with 6 [address] [facility], sciatica, left John, Will J, [address] sideLong term [place] [address] John, (current) use of is, [place], [place], [place], opiate [id number] [place], analgesicPostlamin , [place]. [place], [place] , [id number] ectomy syndrome, tel: [phone] , [place] not elsewhere [id number] . tel: classified tel: [phone] Family History Family Member Type Diagnosis Age At Onset Mother Problem (finding) back pain Payers Payer name Insurance type Covered alliance party ID Authorization(s ) Medicare PACO [id number] [employer] [facility] [id number] Social History Type Description Quantity Date Captured Comments Alcohol Use Details Unknown Caffeine Use Details Unknown Tobacco Use Status Smoking Status No Information Sex Female Chief Complaint And Reason For Visit No Information Reason For Referral Reason For Referral No Information Plan Of Treatment Date Type Action Status Goal INTELLIGENCE AGENT Scanned. Due on due Goal Review Allergy List. Due on due Goal Weight. Due on due Goal Creatinine. Due on d ue Goal ENGINEER THIRD ASSISTANT Paperwork. Due on due Goal ALT (SGPT). Due on d ue Goal UDT. Due on due Goal OARS. Due on due Goal Update Social History. Due on Goal CT-Colonography. Due on due Goal Lipid panel. Due on due Goal AST (SGOT). Due on d ue Goal Order Annual PT. Due on due Goal FIT. Due on due Goal FIT-DNA. Due on due Goal PHQ-9. Due on due Goal HPV. Due on due Goal Tobacco Use. Due on due Goal Hepatitis C screening. Due on 2 Goal Height. Due on due Goal Zoster vaccine (1st). Due on due Goal Medication Reconciliation. Due o n due Goal Unhealthy drug use screening. Du e on due Goal OARS. Due on due Goal Medication Reconciliation. Due o n due Goal Hepatitis C screening. Due on Goal Lipid panel. Due on due Goal Weight. Due on due Goal UDT. Due on due Goal Update Social History. Due on Goal CT-Colonography. Due on due Goal Order Annual PT. Due on due Goal Review Allergy List. Due on due Goal FIT. Due on due Goal Creatinine. Due on d ue Goal ENGINEER THIRD ASSISTANT Paperwork. Due on due Goal HPV. Due on due Goal AST (SGOT). Due on d ue Goal Zoster vaccine (1st). Due on due Goal ALT (SGPT). Due on d ue Goal PHQ-9. Due on due Goal INTELLIGENCE AGENT Scanned. Due on due Goal FIT-DNA. Due on due Goal Unhealthy drug use screening. Du e on due Goal Tobacco Use. Due on due Goal Height. Due on due Goal Unhealthy drug use screening. Du e on due Goal Height. Due on due Goal Hepatitis C screening. Due on e Goal FIT-DNA. Due on due Goal CT-Colonography. Due on due Goal UDT. Due on due Goal ENGINEER THIRD ASSISTANT Paperwork. Due on due Goal Creatinine. Due on d ue Goal AST (SGOT). Due on d ue Goal Tobacco Use. Due on due Goal OARS. Due on due Goal PHQ-9. Due on due Goal ALT (SGPT). Due on d ue Goal Order Annual PT. Due on due Goal FIT. Due on due Goal Update Social History. Due on Goal Lipid panel. Due on due Goal Weight. Due on due Goal Medication Reconciliation. Due o n due Goal INTELLIGENCE AGENT Scanned. Due on due Goal Zoster vaccine (1st). Due on due Goal HPV. Due on due Goal Review Allergy List. Due on due Goal Lipid panel. Due on due Goal Weight. Due on [...] Review Allergy List. Due on due Goal CT-Colonography. Due on due Goal Update Social History. Due on du Goal Tobacco Use. Due on due Goal Medication Reconciliation. Due o n due Goal ENGINEER THIRD ASSISTANT Paperwork. Due on due Goal UDT. Due on due Goal OARS. Due on due Goal INTELLIGENCE AGENT Scanned. Due on due Goal Unhealthy drug use screening. Du e on due Goal PHQ-9. Due on due Goal FIT. Due on due Goal HPV. Due on due Goal Medication Reconciliation. Due o n due Goal Update Social History. Due on Goal CT-Colonography. Due on due Goal ENGINEER THIRD ASSISTANT Paperwork. Due on due Goal Weight. Due [...] due Goal FIT. Due on due Goal INTELLIGENCE AGENT Scanned. Due on due Goal Height. Due on due Goal Unhealthy drug use screening. on due Goal Review Allergy List. Due on due Goal Lipid panel. Due on due Goal PHQ-9. Due on due Goal UDT. Due on due Goal Weight. Due on due Goal Hepatitis C screening. Due on Goal AST (SGOT). Due on d ue Goal Tobacco Use. Due on due Goal OARS. Due on due Goal Lipid panel. Due on due Goal Order Annual PT. Due on due Goal ENGINEER THIRD ASSISTANT Paperwork. Due on due Goal Creatinine. Due on d ue Goal INTELLIGENCE AGENT Scanned. Due on due Goal Height. Due [...] due Goal FIT. Due on due Goal ENGINEER THIRD ASSISTANT Paperwork. Due on due Goal INTELLIGENCE AGENT Scanned. Due on due Goal Unhealthy drug [...] C screening. Due on Goal Zoster vaccine (). Due on due Goal Lipid panel. Due on due Goal ALT (SGPT). Due on d ue Goal ENGINEER THIRD ASSISTANT Paperwork. Due on due Goal UDT. Due [...] ue Goal FIT-DNA. Due on due Goal INTELLIGENCE AGENT Scanned. Due on due Goal Medication Reconciliation. Due o n due Goal Order Annual PT. Due on due Goal HPV. Due on due Goal ENGINEER THIRD ASSISTANT Paperwork. Due on due Goal ALT (SGPT). Due on d ue Goal Unhealthy drug use screening. Du e on due Goal FIT-DNA. Due on due Goal Creatinine. Due on d ue Goal Lipid panel. Due on due Goal INTELLIGENCE AGENT Scanned. Due on due Goal Tobacco Use. [...] Goal Update Social History. Due on Goal ENGINEER THIRD ASSISTANT Paperwork. Due on due Goal INTELLIGENCE AGENT Scanned. Due on due Goal AST (SGOT). [...] due Goal UDT. Due on due Goal INTELLIGENCE AGENT Scanned. Due on due Goal AST (SGOT). Due on d ue Goal OARS. Due on due Goal Height. Due on due Goal ALT (SGPT). Due on d ue Goal Order Annual PT. Due on due Goal Review Allergy List. Due on due Goal PHQ-9. Due on due Goal Update Social History. Due on Goal ENGINEER THIRD ASSISTANT Paperwork. Due on due Goal Weight. Due on due Goal Tobacco Use. Due on due Goal Medication Reconciliation. Due o n due Goal Medication Reconciliation. Due o n due Goal PHQ-9. Due on due Goal ENGINEER THIRD ASSISTANT Paperwork. Due on due Goal UDT. Due on due Goal AST (SGOT). Due on d ue Goal INTELLIGENCE AGENT Scanned. Due on due Goal OARS. Due on due Goal Update Social History. Due on e Goal Review Allergy List. Due on due Goal Weight. Due on due Goal Tobacco Use. Due on due Goal Order Annual PT. Due on 022 due Goal Height. Due on due Goal ALT (SGPT). Due on d ue Goal Weight. Due on due Goal Update Social History. Due on Goal Tobacco Use. Due on due Goal Medication Reconciliation. Due o n due Goal Height. Due on due Goal Review Allergy List. Due on due Goal PHQ-9. Due on due Goal ENGINEER THIRD ASSISTANT Paperwork. Due on due Goal UDT. Due on due Goal INTELLIGENCE AGENT Scanned. Due on due Goal ALT (SGPT). Due on d ue Goal OARS. Due on due Goal AST (SGOT). Due on d ue Goal Order Annual PT. Due on due Goal Tobacco Use. Due on due Goal Medication Reconciliation. Due o n due Goal OARS. Due on due Goal INTELLIGENCE AGENT Scanned. Due on due Goal Update Social History. Due on Goal AST (SGOT). Due on d ue Goal Height. Due on due Goal Weight. Due on due Goal Order Annual PT. Due on due Goal ALT (SGPT). Due on d ue Goal PHQ-9. Due on due Goal UDT. Due on due Goal Review Allergy List. Due on due Goal ENGINEER THIRD ASSISTANT Paperwork. Due on due Goal ENGINEER THIRD ASSISTANT Paperwork. Due on due Goal PHQ-9. Due on due Goal Weight. Due on due Goal Height. Due on due Goal OARS. Due on due Goal Medication Reconciliation. Due o n due Goal Update Social History. Due on Goal INTELLIGENCE AGENT Scanned. Due on due Goal Order Annual PT. Due on due Goal Tobacco Use. Due on due Goal UDT. Due on due Goal ALT (SGPT). Due on d ue Goal Review Allergy List. Due on due Goal AST (SGOT). Due on d ue Goal ENGINEER THIRD ASSISTANT Paperwork. Due on due Goal INTELLIGENCE AGENT Scanned. Due on due Goal PHQ-9. Due on due Goal Review Allergy List. Due on due Goal Weight. Due on due Goal Order Annual PT. Due on 021 due Goal OARS. Due on due Goal [...] Goal Tobacco Use. Due on due Goal INTELLIGENCE AGENT Scanned. Due on due Goal ENGINEER THIRD ASSISTANT Paperwork. Due on due Goal Review Allergy [...] due Goal Height. Due on due Goal ENGINEER THIRD ASSISTANT Paperwork. Due on due Goal Update Social History. Due on Goal OARS. Due on due Goal Review Allergy List. Due on due Goal UDT. Due on due Goal AST (SGOT). Due on d ue Goal INTELLIGENCE AGENT Scanned. Due on due Goal Order Annual [...] Social History. Due on du e Goal INTELLIGENCE AGENT Scanned. Due on due Goal PHQ-9. Due on due Goal OARS. Due on due Goal Tobacco Use. Due on due Goal ENGINEER THIRD ASSISTANT Paperwork. Due on due Goal Height. Due on due Goal Order Annual PT. Due on due Goal Tobacco cessation counseling com pleted Goal Review Allergy List. Due on due Goal ENGINEER THIRD ASSISTANT Paperwork. Due on due Goal OARS. Due on due Goal Medication Reconciliation. Due o n due Goal Weight. Due on due Goal UDT. Due on due Goal Height. Due on due Goal Tobacco Use. Due on due Goal AST (SGOT). Due on d ue Goal Order Annual PT. Due on due Goal INTELLIGENCE AGENT Scanned. Due on due Goal Update Social History. Due on du e Goal PHQ-9. Due on due Goal ALT (SGPT). Due on d ue Goal UDT. Due on due Goal Medication Reconciliation. Due o n due Goal ENGINEER THIRD ASSISTANT Paperwork. Due on due Goal Update Social [...] due Goal Height. Due on due Goal INTELLIGENCE AGENT Scanned. Due on due Goal Review Allergy List. Due on due Goal Tobacco Use. Due on due Goal Height. Due on due Goal Update Social History. Due on Goal OARS. Due on due Goal Medication Reconciliation. Due o n due Goal Weight. Due on due Goal PHQ-9. Due on due Goal Order Annual PT. Due on due Goal ENGINEER THIRD ASSISTANT Paperwork. Due on due Goal ALT (SGPT). Due on d ue Goal UDT. Due on due Goal AST (SGOT). Due on d ue Goal INTELLIGENCE AGENT Scanned. Due on due Goal AST (SGOT). Due on d ue Goal Medication Reconciliation. Due o n due Goal Weight. Due on due Goal Height. Due on due Goal PHQ-9. Due on due Goal INTELLIGENCE AGENT Scanned. Due on due Goal Tobacco Use. Due on due Goal Order Annual PT. Due on 021 due Goal UDT. Due on due Goal ENGINEER THIRD ASSISTANT Paperwork. Due on due Goal ALT (SGPT). [...] ANALYSIS , URINE, WITH Ordered MED REPORT ([id number]), Ordered on: Future Order: Lab Order Drug Test Def 22+ Classe s ([id number]), Ordered Ordered on: Future Order: Lab Order Drug Test Def 22+ Classe s ([id number]), Ordered Ordered on: Future Order: Lab Order COMPLIANCE DRUG ANALYSIS , URINE, WITH Ordered MED REPORT ([id number]), Ordered on: Future Order: Lab Order MRSA/MSSA Screening ([id number]), Ordered Ordered on: Future Order: Lab Order COMPLIANCE DRUG ANALYSIS , URINE, WITH Ordered MED REPORT ([id number]), Ordered on: History Of Present Illness Encounter Date Complaint History Of Present I llness Back Pain Severity level is 10 . Duration: chronic. The problem is worsening . It occurs persistently. The client describes the pain as an ache, burning, sharp and tingling. Symptoms are aggravated by ascending stairs, be nding, descending stairs, lifting, lying/rest, running, sitting, standing, twisting, walking, h ousework, movement and prolonged positionin g. Symptoms are relieved by heat, pain meds/drug s and rest. Comments: Angie pre sents for a follow up and medications refill f or her back and neck pain. Prescribed medicatio n offers 75% pain relief. Denies SE.Neck, back , L shoulder and bilateral hips/knees/shoulder pain have continued to be worse the past month . Typical flares with colder weather. Final surge ry for new hardware placement to L shoulder on 04/29 01/19. Following with surgeon as needed. Endorses numbness in LUE she attributes to past s troke. Participates in HEP as able. Ongoing relief with [facility] and medical cannabis. Notes she will be undergoing additional knee surgery in the future.No further questions or concerns. Comments: Angie pre sents for a virtual follow up and medications refi ll for her back and neck pain. Prescribed med ication offers 75% pain relief. Denies SE.Ne ck, back, L shoulder and bilateral hips/knees /shoulder pain have continued to be worse the past month. Typical flares with colder weather. Unde rwent hardware removal surgery to her L sydni ulder on 12/30/21 with [place] in order for [...] ing down and pain meds/drugs. Comments: Angie escalona sents for a virtual [...] h er L shoulder on 12/30/21 with [place] in order for in fection to clear. [...] her L sydni johnathan on 12/30/21 with [place] in order for infection to clear. Additional [...] her L sydni johnathan on 12/30/21 with [place] in order for infection to clear. Additional [...] to her L shoulder on 12/30/21 with [place] in order for infection to clear. Additional [...] her L sydni ulder on 12/30/21 with [place] in order for infection to clear. Additional [...] to her L shoulder on 12/30/21 with [place] in order for infection to clear. Additional [...] or hardware removal surgery on 12/30/21 with [place] in order for infection to clear. Will [...] [facility] [place] in order for infection to ca ar. [...] for hardware removal surgery in December with [place] in order for in fection to clear. [...] with yuriy lopez as needed. Following with [place] regarding elevated L shoulder/arm pain and notes [...] her hand fell off after getting wet. Plannin g to follow with surgeon regarding this. Neck [...] will likely be starting P T after [place]. Typical flares with colder w eather. Participates [...] her back and neck pain.Reports [facility] today has offered be nefit [...] pain is lower back and neck.The pa vel[place]ole describes the pain as an ache, burning [...] L side weakness -- was treated by [facility] ic. Was put on Warfarin, [...] and enroll ed in a program through [facility]. She also not es of increasing symptoms [...] not interested in any procedures at the [facility]. PT-SABAS-RF-N/ASCS-Anisa waterskarolinaaryan has Meds: Opioids-Currently ta kes oxycodone - [...] to refill her medications. She will call [facility] if e has any questions prior to [...] well for her. Is interested in the [facility] after s he finishes with her current [...] mo re headaches. She was seen by [facility] who told her she has a screw loose. She was referred to Dr. Gonzalez at [facility]. She has not heard from t [employer]. She went camping last weekend and had a ba d fall that has flared her pain more. She had c arpal tunnel surgery a couple months ago on one jerry nd and a few days ago on the other. She also stat es she is flared from the weather. She hasn't been able to do the medical cannabis vaping as [facility] [place] is not allowing it. She states she [...] tomorrow. She said s he will get [place] for 4-5 days maximum followi ng the [...] be completing diagnosti c injections today through [facility]. No other concerns today. Back Pain Severity level is se maricruz. Duration: chronic. The problem is worsening . It occurs persistently. Location of pain is middle back, lower back, arms, legs and neck. The patient describes the pain as an ache, bur cam, sharp and tingling. Symptoms are aggrava mary by daily activities. Symptoms are relieve d by pain meds/drugs. Back Pain Severity level is mo derate. [...] ctive. No other concerns today. Back Pain (comments) [...] #1 Oxycodone, surplus. She was [place] in [place] ago for her back pain. She is having an epd iural steroid injection done at [facility] tomorrow. She isn't sure how well the medical cannabis is working, as her back has significantly flared -up. No other concerns today. Back Pain (comments) Angie is here toda y for follow up evaluation and medication refills r elating to her back pain. She has #8 oxycodone rem aining - on track. She continues medical [facility] and states it has been effective. [...] e xpresses some interest in pursuing medical mar soniya once she is more stable. No other [...] meds/drugs. Back Pain (comments) Angie is here tochelsey y for follow up evaluation and medication [...] neck surgery. ENT referred her to an nurse ldr for additional evaluation. No other concerns today. [...] have cervical and lumbar surgeries in the [facility] ing months. Patient reports falls since her last visit; notes a left foot injury. Pt continues with PT but states it worsens her pain. Sh e c/o insomnia. Patient completed right shou lder imaging at [facility] and reports a tear. She plans [...] will be undergoing a Cervical Fusion with Ste[facility]. She will be following up with [facility] [...] positions. Back Pain (comments) Angie is here to [...] a cervical fusion in the near f [facility]. She has noticed increased restlessne ss and pain in her legs. Her PCP is currently man aging her Lyaditi and Angie would like to increa se [...] re ferred by Dr. Amna Fletcher from [facility]. Angie is here today for her initial consult regarding her back, neck and knee pain which bega n years ago and has been aggrevated [facility] iple M[facility]. She had a lumbar fusion in the past. She also has underwent several neck surgeri es including a cervical fusion and plans to have additional surgery done by Dr. Rodriguez at [facility]. She also has a history [...] the past and continue home [facility]. She recently moved back to [place] from [place]. No ot her concerns today. Medical records:Dr. Rodriguez at [facility] - neck surgeon Dr. Amna Amado Sheridan - PCP recordsPast treatmen t:SABAS - no [...]
--- OUTSIDE RECORDS SUMMARY | 2022-09-20 14:00 | XMS_ITS | Clinical Summary ---
:1965 Author Organization [place] Address [address] [place] [address] Care Team Providers Name Role Phone Clinic, [facility] Primary Care Provide r Allergies Active [...] breath / dyspnea or wheezing naloxone (NARCAN) [place] 4 mg into 0 Active nasal spray [...] (Takes 2 x 5000 unit tablet = 18860 unit dose) Esomeprazole Magnesium Take 40 mg [...] CDT Respiratory Rate 16 10/14/2017 4:28 PM TRAIN BRAKER Oxygen Saturation 98% 10/14/2017 4:28 PM TRAIN BRAKER Inhaled Oxygen Concentration - - Weight 74.8 [...] this topic Medical Devices Implanted Type Area Customer Sales Specialist Device Shelf Model / Identifier Expiration Serial / Date Lot Device Tvt Obturator Laser [id number] Other N/A: [employer] 04/27/2018 [id number] / Implanted: Qty: 1 on 10/14/2017 by Rain Herring MD at [facility]- / [id number] Procedures Procedure Name Priority Date/Time Associated Comments [...] IFA with Reflex (08/10/2022 11:10 AM CDT) [facility] Method Time Signature ERYN interpretation [...] Code Phon e Number SPECIALTY CORE/PROT/ENDO Specialty [place], [place] [address] Core/Prot/Endo [address] [facility] [address] [facility], Room 3-580 Lyme Disease Total Abs Bld [...] LAB - BLOOD ORDERABLES Performing Organization Address City/[facility]/ZIP Code Phon e Number SPECIALTY CORE/PROT/ENDO Specialty [place], [place] [address] Core/Prot/Endo [address] [facility] [address] [facility], Room 3-580 Uric acid (08/10/2022 11:10 AM CDT) athologist Signature Uric Acid 4.8 2.0 - 7.5 08/10/2022 [facility] mg/dL 11:36 AM CDT Specimen Anatomical Collection Method / Collection Time Recei jose Time (Source) Location / Volume Laterality Blood STRUCTURE OF RIGHT Venipuncture / 08/10/2022 11:10 HAND / Unknown Unknown AM CDT 11:10 AM CDT Clemente Katz PA-C LAB - BLOOD ORDERABLES Performing Organization Address City/State/ZIP Code Phon e Number [facility] [place] [address] [facility] [address] TSH (08/10/2022 11:10 AM CDT) athologist Signature TSH 0.92 0.30 - 5.00 08/10/2022 [facility] uIU/mL 12:01 PM CDT Specimen Anatomical Collection Method / Collection Time Recei jose Time (Source) Location / Volume Laterality Blood STRUCTURE OF RIGHT Venipuncture / 08/10/2022 11:10 HAND / Unknown Unknown AM CDT 11:10 AM CDT Clemente Katz PA-C LAB - BLOOD ORDERABLES Performing Organization Address City/State/ZIP Code Phon e Number [facility] [place] [address] [facility] Thyroxine total (08/10/2022 11:10 AM CDT) [...] LAB - BLOOD ORDERABLES Performing Organization Address City/[facility]/ZIP Code Phon e [place] [address] Lab [address] [facility], Room 3-580 T4 free (08/10/2022 11:10 [...] City/State/ZIP Code Phon [place] [address] [phone] Lab [address] [facility], Room 3[facility] T3 total (08/10/2022 11:10 AM CDT) [...] City/State/ZIP Code Phon e Number [facility] [place] [address] Lab [address] [facility], Room 3[facility] Rheumatoid factor (08/10/2022 11:10 AM CDT) athologist Signature Rheumatoid <6 <12 IU/mL 08/10/2022 [facility] SPECIALTY Factor 3:34 PM CDT CORE/PROT/ENDO Specimen Anatomical Collection Method / Collection Time Recei jose Time (Source) Location / Volume Laterality Blood STRUCTURE OF RIGHT Venipuncture / 08/10/2022 11:10 HAND / Unknown Unknown AM CDT 11:10 AM CDT Clemente Katz PA-C LAB - BLOOD ORDERABLES Performing Organization Address City/[facility]/ZIP Code Phon e Number [facility] SPECIALTY CORE/PROT/ENDO [facility] Specialty [place], [place] [address] Core/Prot/Endo [address] [facility], Room 3[facility] (ABNORMAL) D dimer quantitative (08/10/2022 11:10 AM CDT) [facility] gist Method Time Signature D-Dimer 1.69 (H) 0.00 - 08/10/2022 [facility] Quantitative 0.50 11:28 AM CDT ug/mL FEU Specimen Anatomical Collection Method / Collection Time Recei jose Time (Source) Location / Volume Laterality Blood STRUCTURE OF RIGHT Venipuncture / 08/10/2022 11:10 HAND / Unknown Unknown AM CDT 11:10 AM CDT Narrative [facility] - 08/10/2022 11:28 AM CDT This D-dimer assay is intended for use i n conjunction with a clinical pretest probability assessment model to exclude pulmonary embolism (PE) and deep venous thrombosis (DVT) in outpatients suspecte d of PE or DVT. The cut-off value is 0.50 ug/mL FEU. Clemente Katz PA-C LAB - BLOOD ORDERABLES Performing Organization Address City/[facility]/ZIP Code Phon e Number [facility] [place] [address] CRP inflammation (08/10/2022 11:10 AM CDT) P athologist Signature CRP 0.2 0.0 - <0.8 08/10/2022 [facility] mg/dL 11:33 AM CDT Specimen Anatomical Collection Method / Collection Time Recei jose Time (Source) Location / Volume Laterality Blood STRUCTURE OF RIGHT Venipuncture / 08/10/2022 11:10 HAND / Unknown Unknown AM CDT 11:10 AM CDT Clemente Katz PA-C LAB - BLOOD ORDERABLES Performing Organization Address City/[facility] Code Phon e Number [facility] [place] [address] WBC and Differential (08/10/2022 11:05 AM CDT) Analysis Performed At Patho logist Time Signature WBC Count 4.2 4.0 - 11.0 08/10/2022 [facility] 10e3/uL 11:16 AM CDT % Neutrophils 43 % 08/10/2022 [facility] 11:16 AM CDT % Lymphocytes 42 % 08/10/2022 [facility] 11:16 AM CDT % Monocytes 11 % 08/10/2022 [facility] 11:16 AM CDT % Eosinophils 3 % 08/10/2022 [facility] 11:16 AM CDT % Basophils 1 % 08/10/2022 [facility] 11:16 AM CDT % Immature 0 % 08/10/2022 [facility] Granulocytes 11:16 AM CDT NRBCs per 100 WBC 0 <1 /100 08/10/2022 [facility] 11:16 AM CDT Absolute 1.8 1.6 - 8.3 08/10/2022 [facility] Neutrophils 10e3/uL 11:16 AM CDT Absolute 1.8 0.8 - 5.3 08/10/2022 [facility] Lymphocytes 10e3/uL 11:16 AM CDT Absolute 0.5 0.0 - 1.3 08/10/2022 [facility] Monocytes 10e3/uL 11:16 AM CDT Absolute 0.1 0.0 - 0.7 08/10/2022 [facility] Eosinophils 10e3/uL 11:16 AM CDT Absolute 0.0 0.0 - 0.2 08/10/2022 [facility] Basophils 10e3/uL 11:16 AM CDT Absolute Immature 0.0 <=0.4 08/10/2022 [facility] Granulocytes 10e3/uL 11:16 AM CDT Absolute NRBCs 0.0 10e3/uL 08/10/2022 [facility] 11:16 AM CDT Specimen Anatomical Collection Method / Collection Time Recei jose Time (Source) Location / Volume Laterality Blood STRUCTURE OF RIGHT Venipuncture / 08/10/2022 11:05 HAND / Unknown Unknown AM CDT 11:05 AM CDT Clemente Katz PA-C LAB - BLOOD ORDERABLES Performing Organization Address City/[facility]/[place] [address] Erythrocyte sedimentation rate auto (08/10/2022 11:05 AM CDT) [facility] gist Method Time Signature Erythrocyte 13 0 - 20 08/10/2022 [facility] Sedimentation Rate mm/hr 11:45 AM CDT Specimen Anatomical Collection Method / Collection Time Recei jose Time (Source) Location / Volume Laterality Blood STRUCTURE OF RIGHT Venipuncture / 08/10/2022 11:05 HAND / Unknown Unknown AM CDT 11:05 AM CDT Clemente Katz PA-C LAB - BLOOD ORDERABLES Performing Organization Address City/[facility]/[place] [address] from Last 3 Months Insurance Payer Benefit Plan / Subscriber ID Effective Dates Phone Addre ss Type Group MEDICARE MEDICARE [id number] 2012-Ariana [phone] ATTN CL AIMS Medicare nt 0 [address] [place] [address] MEDICA MEDICA ACCESS [id number] 2016-Dirk [phone] [address] [address] [address] [place] [address] [place] [address] Care Teams Side Sawyer Relationship Specialty Start Date End Date Clinic, [facility] PCP - General 06/03/171999 [place] [address]
--- OUTSIDE RECORDS SUMMARY | 2022-09-20 14:00 | XMS_ITS | Encounter Summary ---
:1965 Author Organization [place] Address [facility] [place] [address] Care Team Providers Name Role Phone Unavailable Primary Care Provider Unavailable Encounter Details Date Type Department Care Team Description 07/29/[address] [facility] EMERGENCY NURY CISNEROS Results [address] [place], [place] [address] Social History Tobacco Use Types Packs/Day Years Used Date Smoking Tobacco: Never Assessed Sex Assigned at Date Recorded Not on file documented as of this encounter Progress Notes Interface, Practice Manager - 07/31/2011 10:23 AM CDT FINAL Chief [...] [place], and is here in the [facility] area visiting her father. The patient states that she has been smoking one pack of cigarettes per day since 1973. Her primary care physician is Dr. Holley De La Rosa in [place], [place]. \n Her chronic pain doctor is Dr. Garcia at [facility] in [place]. - Is negative for Illicit drug use, [...] MT: JOSÉ MIGUEL Name: KAYLIN MOSQUERA Account: [id number] : 1965 Visit Date: 07/29/2011 Document: [id number] documented in this encounter Plan of Treatment Not on filedocumented as of this encounter Visit Diagnoses Not on filedocumented in this encounter
--- OUTSIDE RECORDS SUMMARY | 2022-09-20 14:00 | XMS_ITS | Encounter Summary ---
:1965 Author Organization [place] Address [address] [place] [address] Care Team Providers Name Role Phone Unavailable Primary Care Provider Unavailable Encounter Details Date Type Department Care Team Description 04/15/2009 Historic Results INTERFACED REPORT Kai Munoz MD [address] [facility] [address] [place] [address] (Wo rk) Social History Tobacco [...]
--- OUTSIDE RECORDS SUMMARY | 2022-09-20 14:00 | XMS_ITS | Encounter Summary ---
:1965 Author Organization [place] Address [address] [place] [address] Care Team Providers Name Role Phone [facility] Primary Care Provide r Mor Bautista MD [...] on filedocumented in this encounter Care Teams Patch Setter Relationship Specialty Start Date End Date [facility] PCP - General 06/03/17 [facility] [address] [place] [address] Mor Bautista MD Assigned Infectious Disease 06/12/2106/25 Elisabeth Porter Provider [facility] [address] [place] [address] documented as of this encounter
--- OUTSIDE RECORDS SUMMARY | 2022-09-20 14:00 | XMS_ITS | Encounter Summary ---
:1965 Author Organization [place] Address [address] [place] [address] Care Team Providers Name Role Phone [facility] Primary Care Provide r Encounter Details Date [...] on filedocumented in this encounter Care Teams Port Warden Relationship Specialty Start Date End Date [facility] PCP - General 06/03/171999 [place] [address] documented as of this encounter
--- OUTSIDE RECORDS SUMMARY | 2022-09-20 14:00 | XMS_ITS | Encounter Summary ---
:1965 Author Organization [place] Address [address] [place] [address] Care Team Providers Name Role Phone Unavailable Primary Care Provider Unavailable Encounter Details Date Type Department Care Team Description 07/29/2011 Historic Notes INTERFACED REPORT Interface, Transcript onMD Social History Tobacco Use Types Packs/Day Years Used Date Smoking Tobacco: Never Assessed Sex Assigned at Date Recorded Not on file documented as of this encounter Progress Notes Interface, Lamination Inspector - 08/30/2011 5:48 PM CDT Allergies ?? [...]
--- OUTSIDE RECORDS SUMMARY | 2022-09-20 14:00 | XMS_ITS | Encounter Summary ---
:1965 Author Organization [place] Address [facility] [place] [address] Care Team Providers Name Role Phone Unavailable Primary Care Provider Unavailable Encounter Details Date Type Department Care Team Description 04/15/2009 Results Only [facility] Evelio Munoz MD Hospital Results [address] [place] [address] (Wo rk) Social History Tobacco [...]
--- OUTSIDE RECORDS SUMMARY | 2022-09-20 14:00 | XMS_ITS | Encounter Summary ---
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 Sh Periop Services Procedures CYSTOSCOPY, SLING TRANSVAGINAL [address], [address] [place] [address] Phone: Referral ID Status Reason Start Date Expiration Date Visits Requ ested Visits Authorized [id number] 1 1 Encounter Details Date Type Department Care Team Description 10/14/2017 Surgery [facility] [place], CYSTOSCOPY ,TVT SLING [place] [facility] Ser ashwin Rodrigez MD [address] [facility] [address] [place] [address] [facility] [phone] [place] [address] (Wo rk) Surgery Details Date/Time Status Location OR Service Patient Case Class Case Tr auma Class Type Case? 10/14/17 1:00 Posted OR OR [facility] Urology Same Day PM Surgery Panel [...] Comments Blood Pressure 93/59 10/14/2017 2:15 PM HEDDLE MACHINE OPERATOR Pulse - - Temperature 35.7 ??C (96.3 ??F) 10/14/2017 1:31 PM HEDDLE MACHINE OPERATOR Respiratory Rate 14 10/14/2017 2:15 PM HEDDLE MACHINE OPERATOR Oxygen Saturation 93% 10/14/2017 2:15 PM HEDDLE MACHINE OPERATOR Inhaled Oxygen Concentration - - Weight 73.9 kg (163 lb) 10/14/2017 12:15 PM HEDDLE MACHINE OPERATOR Height 152.4 cm (5') 10/14/2017 12:15 PM HEDDLE MACHINE OPERATOR Body Mass Index 31.83 10/14/2017 12:15 PM HEDDLE MACHINE OPERATOR documented in this encounter Discharge Instructions Discharge InstructionsGi King RN - 10/14/2017 1:42 PM HEDDLE MACHINE OPERATOR Post Bladder Sling Instructions Dr Stafford [phone] ?? For pain you may take a narcotic/acetaminophen combination prescription for pain relief. The mostcommon pain is in the upper thighs. This usually lasts 2-3 days. You may use cold packs to this areaas needed to reduce pain and bruising. Generally umvb-nzk-wylamyh medicines such as ibuprofen, 3-4 tablets every [...] vaginal sutures. ?? Post op appointments: Call [phone] to schedule an appointment to see your [...] know so they can address your concerns. LE MACHINE OPERATOR documented in this encounter Medications at [...] needed for muscle spasms naloxone (NARCAN) nasal [place] 4 mg into one 0 spray nostril [...] (Takes 2 x 5000 unit tablet = 77917 unit dose) ZONISAMIDE PO Take 300 mg [...] was given a new prescription for [place]. Prescription for Oxycodone shredded. Patient took hard copy of new [place] prescription with her.; LE MACHINE OPERATOR Vicki Matthews RN - 10/14/2017 3:39 PM CST Patient voided, bladder scan 450cc, encouraged patient to void again. Pt voided. Bladder scan for 100-150cc. Patient comfortable and ready to go home. LE MACHINE OPERATOR documented in this encounter Miscellaneous [...] note, she also underwent sling placement in [facility] and on exam I was able to [...] and draped in the regular fashion. A 16-Azeri [place] catheter was placed. Periurethral space was [...] MD MT: #[id number] Name: ANGIE MOSQUERA Account: [id number] : 1965 Procedure Date: 10/14/2017 Document: [id number] cc: Rain Stafford MD LE MACHINE OPERATOR documented in this encounter Plan of Treatment Not on filedocumented as of this encounter Procedures Procedure Name Priority Date/Time Associated Diagnosis Comme nts CREATION, VAGINAL 10/14/2017 12:46 PM URGE AND STRESS SLING, WITH CYSTOSCOPY HEDDLE MACHINE OPERATOR INCONTINENCE,FEMAL E STRESS INCONTINENCE LAB RESULT - HIM SCAN 10/11/2017 12:00 AM HEDDLE MACHINE OPERATOR EKG CARDIAC - HIM SCAN 08/15/2017 12:00 AM CDT XRAY IMAGING - HIM 07/25/2017 12:00 AM SCAN CDT documented in this encounter Results LAB RESULT - HIM SCAN (10/11/2017 12:00 AM HEDDLE MACHINE OPERATOR) Specimen (Source) Anatomical Location Collection [...] 1:21 PM 30 mLs Operative EPINEPHrine 1:200,000 HEDDLE MACHINE OPERATOR Sit e/Surgical Site injection PRN, Starting on Tue10/14/17 at 1321, Intra-procedure ciprofloxacin (CIPRO) infusion 400 mg Given 10/14/2017 12:59 PM HEDDLE MACHINE OPERATOR 400 mg Routine, 400 mg, Intravenous, PRE-OP/PRE-PROCEDURE, Starting on Tue10/14/17 at 1155, For 1 dose, Irritant., Indications: Perioperative Pharmacoprophylaxis, Pre-procedure New Bag 10/14/2017 12:26 PM HEDDLE MACHINE OPERATOR 400 mg fentaNYL (PF) (SUBLIMAZE) injection 25-5 0 mcg Given 10/14/2017 2:01 PM HEDDLE MACHINE OPERATOR 50 mcg 25-50 mcg, Intravenous, EVERY [...] 100 mcg., PACU Given 10/14/2017 1:50 PM HEDDLE MACHINE OPERATOR 50 mcg HYDROmorphone (PF) (DILAUDID) injection Given 10/14/2017 2:42 PM HEDDLE MACHINE OPERATOR 0.5 mg 0.3-0.5 mg 0.3-0.5 mg, [...] minutes., PACU/Phase II Given 10/14/2017 2:18 PM HEDDLE MACHINE OPERATOR 0.5 mg ondansetron (ZOFRAN) injection 4 mg Given 10/14/2017 2:18 PM HEDDLE MACHINE OPERATOR 4 mg 4 mg, Intravenous, EVERY [...] tablet 5 mg Given 10/14/2017 2:54 PM HEDDLE MACHINE OPERATOR 5 mg 5 mg, Oral, ONCE, On Tue10/14/17 at 1500, For 1 dose, PACU scopolamine (TRANSDERM) 72 hr Given 10/14/2017 12:43 PM HEDDLE MACHINE OPERATOR 1 pa tch Behind Left Ear patch 1 patch 1 patch, Transdermal, EVERY 72 HOURS, First dose on Tue10/14/17 at 1245, Apply patch to skin, behind ear. Remove every 72 hours. Each 1.5 mg patch delivers 1 mg of scopolamine., Pre-procedure skin closure adhesive Given 10/14/2017 1:19 PM 1 applicator Operative (DERMABOND) vial HEDDLE MACHINE OPERATOR Site/Surgical S ite PRN, Starting on Tue10/14/17 at 1319, Intra-procedure sodium chloride 0.9% Given 10/14/2017 1:09 PM 1,000 mLs Operative (bottle) irrigation HEDDLE MACHINE OPERATOR Site/Surgical S ite PRN, Starting on Tue10/14/17 at 1309, Intra-procedure sterile water irrigation Given 10/14/2017 1:08 PM 3,000 mLs Operative (bag) HEDDLE MACHINE OPERATOR Site/Surgical S ite PRN, Intra-procedure, Starting on Tue10/14/17 at 1308, Until Tue10/14/17 at 1544 documented in this encounter Active and Recently Administered Medications Times are shown in HEDDLE MACHINE OPERATOR. Scheduled Medication Order 10/12/2017 10/13/2017 10/14/2017 ciprofloxacin (CIPRO) infusion 400 mg (COMPLETED) 1226 (New Bag - Provider: Rona Hanks RN)1259 (Given - Provider: Gayatri Combs APRN LANDFILL GAS COLLECTION OPERATOR) Routine, 400 mg, Intravenous, PRE-OP/PRE -PROCEDURE, [...] RN) 0.3-0.5 mg, Intravenous, EVERY 10 MIN [place] N, other, acute pain.?May administer if Respiratory [...] 1544 documented in this encounter Care Teams Car Cleaning Supervisor Relationship Specialty Start Date End Date Clinic, [facility] PCP - General 06/03/171999 [place] [id number] documented as of this encounter
--- OUTSIDE RECORDS SUMMARY | 2022-09-20 14:00 | XMS_ITS | Encounter Summary ---
:1965 Author Organization [place] Address [address] [place] [address] Care Team Providers Name Role Phone Clinic, [facility] Primary Care Provide r Reason for Visit Reason Comments Referral Other ID Encounter Details Date Type Department Care Team Description 05/11/2021 Communication - [facility] Provider, Jameel howard; [facility] Specialties Patient Access [address] [place] [phone] Social History Tobacco Use Types Packs/Day Years Used Date Smoking Tobacco: Every Day Cigarettes 0.5 Smokeless Tobacco: Never Alcohol Use Standard Drinks/Week Comments No 0 (1 standard drink = 0.6 oz pure alcoho l) Sex Assigned at Date Recorded Not on file documented as of this encounter Miscellaneous Notes Telephone Encounter - Historical Provider - 05/13/2021 11:10 AM CDT Date: 05/14/2021 Status: [facility] Time: 3:20 PM Length: 40 Visit Type: CONSULT [[id number]] Copay: $0.00 Provider: Mor Bautista MD Telephone [...] ONLY received??? 05/11/2021 12:05pm inside ID consult [facility], , Referring: Dr David Cohn, DX: status post shoulder replacement, left Order comments: Asking for HALI, this week. documented in this encounter Plan of Treatment Not on filedocumented as of this encounter Visit Diagnoses Not on filedocumented in this encounter Care Teams Back Roller Relationship Specialty Start Date End Date Clinic, [facility] PCP - General 06/03/171999 [place] [address] documented as of this encounter
--- OUTSIDE RECORDS SUMMARY | 2022-09-20 14:00 | XMS_ITS | Encounter Summary ---
:1965 Author Organization [place] Address [address] [place] [address] Care Team Providers Name Role Phone [facility], [facility] Primary Care Provide r Encounter Details Date Type Department Care Team Description [facility] ProviderAlea Social History Tobacco [...] on filedocumented in this encounter Care Teams Electro Mechanical Solar Technician Relationship Specialty Start Date End Date [facility] PCP - General 06/03/171999 [place] [address] documented as of this encounter
--- OUTSIDE RECORDS SUMMARY | 2022-09-20 14:00 | XMS_ITS | Encounter Summary ---
:1965 Author Organization [place] Address [address] [place] [address] Care Team Providers Name Role Phone [facility], [facility] Primary Care Provide r Encounter Details Date Type Department Care Team Description [facility] ProviderAlea Social History [...] on filedocumented in this encounter Care Teams Mechanic Marine Engine Relationship Specialty Start Date End Date [facility] PCP - General 06/03/171999 [place] [address] documented as of this encounter
--- OUTSIDE RECORDS SUMMARY | 2022-09-20 14:00 | XMS_ITS | Encounter Summary ---
:1965 Author Organization [place] Address [address] [place] [address] Care Team Providers Name Role Phone [facility], [facility] Primary Care Provide r Encounter Details Date Type Department Care Team Description 03/03/2021 [facility] ProviderAlea Social History [...] on filedocumented in this encounter Care Teams Redeye Gunner Relationship Specialty Start Date End Date [facility] PCP - General 06/03/171999 [place] [address] documented as of this encounter
--- OUTSIDE RECORDS SUMMARY | 2022-09-20 14:00 | XMS_ITS | Encounter Summary ---
:1965 Author Organization [place] Address [address] [place] [address] Care Team Providers Name Role Phone [facility], [facility] Primary Care Provide r Encounter Details Date Type Department Care Team Description [facility]2021 [facility] ProviderAlea Social History [...] on filedocumented in this encounter Care Teams Offset Printing Operator Relationship Specialty Start Date End Date [facility] PCP - General 06/03/171999 [place] [address] documented as of this encounter
--- OUTSIDE RECORDS SUMMARY | 2022-09-20 14:00 | XMS_ITS | Encounter Summary ---
:1965 Author Organization [place] Address [address] [place] [address] Care Team Providers Name Role Phone [facility] Primary Care Provide r Encounter [...] on filedocumented in this encounter Care Teams Cylinder Tester Relationship Specialty Start Date End Date [facility] PCP - General 06/03/171999 [place] [address] documented as of this encounter
--- OUTSIDE RECORDS SUMMARY | 2022-09-20 14:00 | XMS_ITS | Encounter Summary ---
:1965 Author Organization [place] Address [address] [place] [address] Care Team Providers Name Role Phone Unavailable Primary Care Provider Unavailable Reason for Visit Reason Onset Date Comments Previsit 12/11/2014 12/19/[address] Juice mackenzie Encounter Details Date Type Department Care Team Description 12/11/2014 PRE VISIT [facility] Amie, Kwan t (12/19/14 [facility] Shauna Alejo MD with Dr Humphrey) [facility] [place] [address] [place], [place] [phone] [address] (Wo rk) Social History Tobacco Use Types Packs/Day Years Used Date Smoking Tobacco: Never Assessed Sex Assigned at Date Recorded Not on file documented as of this encounter Plan of Treatment Not on filedocumented as of this encounter Visit Diagnoses Not on filedocumented in this encounter
--- OUTSIDE RECORDS SUMMARY | 2022-09-20 14:00 | XMS_ITS | Encounter Summary ---
:1965 Author Organization [place] Address [address] [place] [address] Care Team Providers Name Role Phone [facility], [facility] Primary Care Provide r Encounter Details Date Type Department Care Team Description 05/20/2021 Records - [facility], [facility] [address] [facility] [address] [place] [address] Social History Tobacco Use Types Packs/Day Years [...] athologist Signature Creatinine 0.60 0.50 - 1.50 [facility] mg/dL [facility]PITAL Specimen (Source) Anatomical Location Collection Method / Collectio n Time Received Time / Laterality Volume Blood specimen 04/20/2021 (specimen) Narrative 04/20/2021 [facility] EXTERNAL RESULT Historical Provider LAB - BLOOD ORDERABLES Performing Organization Address City/State/ZIP Code Phon e Number [facility] [address] [place] [address] documented in this encounter Visit Diagnoses Not on filedocumented in this encounter Care Teams Electrical Equipment Technician Relationship Specialty Start Date End Date Clinic, [facility] PCP - General 06/03/171999 [place] [address] documented as of this encounter
--- OUTSIDE RECORDS SUMMARY | 2022-09-20 14:00 | XMS_ITS | Encounter Summary ---
:1965 Author Organization [place] Address [address] [place] [address] Care Team Providers Name Role Phone Clinic, [facility] Primary Care Provide r Encounter Details Date Type Department Care Team Description 03/20/2021 [facility] [address] [place] [address] [id number] Social History Tobacco Use Types Packs/Day Years [...] Bacterial Culture Routine (03/20/2021 6:00 AM CDT) [facility] Method Time Signature Culture STAPHYLOCOCCUS 03/27/[address] [facility] EPIDERMIDIS (A) 8:01 AM CDT [facility] Comment: Staphylococcus epidermidis Isolated from broth only Gram Stain 4+ Polymorphonuclear 03/27/2021 8:01 AM HEALTH Result leukocytes [facility] Gram Stain No organisms seen 03/27/2021 8:01 AM HEALTH Result CDT [facility] Specimen Anatomical Collection Method [...] 1: Ortiz sceptible Comment: Z96.612 Clemente Blackwell [employer] [facility] ORDERABL ES Performing Organization Address City/[facility]/ZIP [place] [address] [address] [facility] Anaerobic Bacterial Culture Routine (03/20/2021 6:00 AM CDT) [facility] Method Time Signature Culture No anaerobic 03/23/2021 HEALTH organisms 7:18 AM CDT [facility] Specimen Anatomical Collection Method Collection Time Receive d Time (Source) Location / / Volume Laterality Body fluid Non-blood 03/20/2021 6:00 AM 1 specimen Collection / CDT 12:05 PM CDT (specimen) Unknown Clemente Blackwell LAB - MICRO GENERAL ORDERABL ES Performing Organization Address City/State/ZIP [place] [address] [address] [facility] (ABNORMAL) Cell count with differential fluid (03/20/2021 6:00 AM CDT) [facility] Method Time Signature Color Red 03/20/2021 HEALTH 2:04 PM CDT [facility] Clarity Turbid 03/20/2021 HEALTH 2:04 PM CDT [facility] Total Nucleated 42,864 (H) 0 - 99 03/20/[address] [facility] Cells /uL 2:04 PM CDT [facility] RBC, Fluid >50,000 <50,000 03/20/2021 HEALTH (A) /ul 2:04 PM CDT [facility] % Neutrophils 91 (H) <=25 % 03/20/[address] [facility] 2:04 PM CDT [facility] % Lymphocytes 8 <=78 % 03/20/[address] [facility] 2:04 PM CDT [facility] Monocyte % 1 <=71 % 03/20/[address] [facility] 2:04 PM CDT [facility] Macrophage % 03/20/[address] [facility] 2:04 PM CDT [facility] Mesothelials, 03/20/[address] [facility] Fluid 2:04 PM CDT [facility] % Eosinophils 03/20/[address] [facility] 2:04 PM CDT [facility] % Other Cells 03/20/[address] [facility] 2:04 PM CDT [facility] Specimen Anatomical Collection Method Collection Time Receive d Time (Source) Location / / Volume Laterality Body fluid BODY FLUID Non-blood 03/20/2021 6:00 AM specimen SPECIMEN / Unknown Collection / CDT 12:05 PM CDT (specimen) Unknown Narrative [facility] - 03/20/2021 2:04 PM CDT Large clot present; count may be inaccur ate. Clemente Blackwell LAB - BODY FLUIDS ORDERABLES Performing Organization Address City/State/ZIP Code Phon e Number [place] [address] [place] [address] [place] [address] [facility] [place] [address], [facility] [phone] documented in this encounter Visit Diagnoses Not on filedocumented in this encounter Care Teams Auto Glass Technician Relationship Specialty Start Date End Date Clinic, [facility] PCP - General 06/03/171999 [place] [address] documented as of this encounter
--- OUTSIDE RECORDS SUMMARY | 2022-09-20 14:00 | XMS_ITS | Encounter Summary ---
:1965 Author Organization [place] Address [address] [place] [address] Care Team Providers Name Role Phone Amna Fletcher Primary Care Provider Reason for Visit Reason Comments Chest Wall Pain Encounter Details Date Type Department Care Team Description 07/18/2016 Emergency [facility] Radha Espana Sternal contusion, initial encounter; [facility] phuong Ross MD Closed fracture of rib of right side, in itial encounter [address] [facility] [place] [address] [address] [place] [address] (Wo rk) Social History Tobacco Use Types [...] your healthcare provider ?? Congested cough ?? [phone] [employer] [place] [address], [place] [address]. All rights reserved. This information is not intended as a substitute for professional medical care. Always follow your healthcare professional's instructions. AttachmentsThe following attachments cannot be sent through Care Everywhere.BONE BRUISE (BONE CONTUSION), UNDERSTANDING (MONGOLIAN)documented in this encounter Medications at Time of [...] surgery Bilateral knee arthroplasty Gastric bypass Cholecystectomy Eap Counselor surgery Family History: History reviewed. No pertinent [...] Department Course ECG (01:17:19): Rate 69 bpm. HI interval 176. QRS duration 94. QT/QTc 408/437. [...] hours for 10 days Adrian Vera 07/18/2016 [facility] EM[facility] IAdrian am serving as a scribe at 1:03 AM on 07/18/2016 to document services personally performed by Radha Espana MD based on my observations and the provider's statements to me. Radha Espana MD 07/18/16 8577 Renea Conn RN - 07/18/2016 12:48 AM [...] EKG 12 lead (07/18/2016 1:17 AM CDT) [facility] gist Method Time Signature Interpretation ECG [...] dose documented in this encounter Care Teams Scrap Shear Operator Relationship Specialty Start Date End Date Amna Fletcher PCP - General 07/18/16 05/16/17 [place] [address] documented as of this encounter
--- OUTSIDE RECORDS SUMMARY | 2022-09-20 14:00 | XMS_ITS | Encounter Summary ---
:1965 Author Organization [place] Address [facility] [place] [address] Care Team Providers Name Role Phone Unavailable Primary Care Provider Unavailable Encounter Details Date Type Department Care Team Description 04/15/2009 Emergency room [facility] Evelio Lamar MD Hospital Results [address] [place] [address] (Wo rk) Social History [...] She states that her pain clinic in [place] gave her new prescriptions to be filled [...] pain. SOCIAL HISTORY: The patient lives in [place]. Her primary care physician is Dr. Holley De La Rosa in [place], [place]. Her chronic pain doctor is Dr. Garcia at [facility] in [place]. Thepatient has had previous cervical and lumbar [...] I did speak with Dr. Torres the [facility] who review her records with [...] Compazine. I gave her referral information for [facility] if she has further problems while she was in [place]. She plans to be here another 1-2 weeks. DISCHARGE DIAGNOSES: 1. Acute exacerbation of chronic back pains. 2. Nausea. Electronically signed on 05/01/2009 06:49 by EVELIO LAMAR MD MT: LINDSAY#[id number] Name: KAYLIN MOSQUERA MRN: [id number] Account: [id number] : 1965 Visit Date: 04/15/2009 Document: [id number] cc: Oc De La Rosa MD documented in this encounter Plan of Treatment Not on filedocumented as of this encounter Visit Diagnoses Not on filedocumented in this encounter
--- OUTSIDE RECORDS SUMMARY | 2022-09-20 14:00 | XMS_ITS | Encounter Summary ---
:1965 Author Organization [place] Address [facility] [place] [address] Care Team Providers Name Role Phone Clinic, [facility] Primary Care Provide r Reason for Visit Auth/Cert Specialty Diagnoses / Procedures Referred By Contact Refer red To Contact Surgery Diagnoses URGE AND STRESS INCONTINENCE,FEMALE STRESS INCONTINENCE Sh Periop Services Procedures CYSTOSCOPY, SLING TRANSVAGINAL [address] [place] [address] Phone: Referral ID Status Reason Start Date Expiration Date Visits Requ ested Visits Authorized [id number] 1 1 Encounter Details Date Type Department Care Team Description 10/14/2017 Anesthesia Event [facility] SruthiEri rosa MD [facility] ANESTHESIA [address] [address] [facility] PeriOP Gayatri Combs, ACID PAINTER STORE [facility] [address] [address] [address] [place] [address] Anesthesia Record Procedure Summary Procedure Name [...] Gayatri Combs, Vicki Collins D, Injectable; Tolerated STORE [facility] RN well Retired Non-Surgical 10/14/17; 1254; Easy; 10/14/17 1254 by 09/28 06/13 1328 by Airway Intravenous; 4; mm; Gayatri Combs, Gayatri Poe, laryngeal mask airway; STORE [facility] ACID PAINTER ST[facility] midline; Equal, clear and bilateral; STORE [facility]; hh Urethral Catheter 10/14/17; 1314; No; 10/14/17 1314 by 10/14/17 1316 by /GI/GUIDE SETTER Pelvic Usha Bar, Craole Duff, Procedure; 16 fr RN documented in [...] MD, MD October 14, 2017 1:50 PM [employer] SALES ASSOCIATE Anesthesia Preprocedure Evaluation - Mini Negro MD [...] ??? Acyclovir Rash ??? Cephalosporins Rash ??? [place] Rash Past Medical History: Diagnosis Date ??? Fibromyalgia, primary ??? Migraine ??? Osteoporosis ??? Restless leg ??? Stress incontinence ??? Uncomplicated asthma Past Surgical History: Procedure Laterality Date ??? ABDOMEN SURGERY ??? BACK SURGERY ??? CHOLECYSTECTOMY ??? GUIDE SETTER SURGERY ??? ORTHOPEDIC SURGERY Social History Substance [...] (Takes 2 x 5000 unit tablet = 44892 unit dose) Yes Reported, Patient Esomeprazole Magnesium [...] Yes Reported, Patient naloxone (NARCAN) nasal spray [place] 4 mg into one nostril alternating nostrils [...] Facility-Administered Medications Ordered in [facility] Medication Dose Route Frequency Last Rate Last Dose ??? Provider ordered ALTERNATE pre op antibiotic. 1 each As instructed Continuous ??? ciprofloxacin (CIPRO) infusion 400 mg 400 mg Intravenous Pre-Op/Pre-procedure x 1 dose No current [facility]-ordered outpatient prescriptions on file. ??? Another [...] GLC, BUN, CR, ROGER in the last 23188acqgw. No results for input(s): AST, ALT, ALKPHOS, BILITOTAL, LIPASE in the last 79916 hours. No results for input(s): WBC, HGB, PLT in the last 42879 hours. No results for input(s): ABO, RH in the last 31146 hours. No results for input(s): INR, PTT in the last 92614 hours. No results for input(s): TROPI in the last 54038 hours. No results for input(s): PH, PCO2, PO2, HCO3 in the last 16828 hours. No results for input(s): HCG in the last 44408 hours. No results found for this or any previous visit (from the past 744 hour(s)). RECENT LABS: ECG: ECHO: [employer] SALES ASSOCIATE documented in this encounter Miscellaneous Notes Anesthesia [...] (Last set prior to Anesthesia Care Transfer) STORE [facility] VITALS 10/14/2017 1258 - 10/14/2017 1334 10/14/2017 Pulse: 85 SpO2: 99 % Resp Rate (observed): 8 Resp Rate (set): 10 Electronically Signed By: Gayatri Combs APRN STORE [facility] October 14, 2017 1:34 PM [employer] SALES ASSOCIATE documented in this encounter Plan of Treatment Not on filedocumented as of this encounter Visit Diagnoses Not on filedocumented in this encounter Administered Medications Inactive Administered Medications - up to 3 most recent administrations Medication Order MAR Action Action Date Dose Rate Site ciprofloxacin (CIPRO) infusion Given 10/14/2017 12:59 PM [employer] SALES ASSOCIATE 400 mg 400 mg Routine, 400 mg, Intravenous, PRE-OP/PRE-PROCEDURE, Starting on Tue10/14/17 at 1155, For 1 dose, Irritant., Indications: Perioperative Pharmacoprophylaxis, Pre-procedure New Bag 10/14/2017 12:26 PM [employer]ING [employer] SALES ASSOCIATE 400 mg dexamethasone (DECADRON) injection Given 10/14/2017 1:03 PM [employer] SALES ASSOCIATE 4 mg PRN, Administer over 1 Minutes, Starting on Tue10/14/17 at 1303, Anesthesia Intra-op dexmedetomidine (PRECEDEX) 4 mcg/mL bolu s Bolus 10/14/2017 1:08 PM [employer] SALES ASSOCIATE 8 mcg 200 mcg, CONTINUOUS PRN, Starting on Tue10/14/17 at 1305, Anesthesia Intra-op New Bag 10/14/2017 1:05 PM SP[employer]ING [employer] SALES ASSOCIATE 12 mcg fentaNYL (PF) (SUBLIMAZE) injection Given 10/14/2017 12:52 PM SP[employer]ING [employer] SALES ASSOCIATE 100 mcg PRN, moderate to severe pain, Administer over 3-5 Minutes, Starting on Tue10/14/17 at 1252, Anesthesia Intra-op lactated ringers infusion New Bag 10/14/2017 12:51 PM SP[employer]ING [employer] SALES ASSOCIATE Intravenous, CONTINUOUS PRN, Anesthesia Intra-op, Starting on Tue10/14/17 at 1251, Until Tue10/14/17 at 1334 lidocaine injection 2% (MDV) Given 10/14/2017 12:52 PM SP[employer]ING [employer] SALES ASSOCIATE 80 mg PRN, Starting on Tue10/14/17 at 1252, Anesthesia Intra-op midazolam (VERSED) injection Given 10/14/2017 12:51 PM SP[employer] SALES ASSOCIATE 2 mg Administer over 2 Minutes, PRN, anxiety, Starting on Tue10/14/17 at 1251, Anesthesia Intra-op ondansetron (ZOFRAN) injection Given 10/14/2017 1:03 PM SP[employer]ING [employer] SALES ASSOCIATE 4 mg PRN, nausea, vomiting, Administer over 2-5 Minutes, Starting on Tue10/14/17 at 1303, Anesthesia Intra-op propofol (DIPRIVAN) infusion Rate/Dose 10/14/2017 1:14 150 mcg/kg/min 66.5 mL/hr Intravenous, CONTINUOUS PRN, Change PM SP[employer]ING [employer] SALES ASSOCIATE Starting on Tue10/14/17 at 1252, Anesthesia Intra-op New Bag 10/14/2017 12:52 PM SP[employer]ING [employer] SALES ASSOCIATE 200 mcg/kg/min 88.7 mL/hr propofol (DIPRIVAN) injection 10 mg/mL v ial Given 10/14/2017 1:06 PM SP[employer]ING [employer] SALES ASSOCIATE 50 mg PRN, Starting on Tue10/14/17 at 1252, Anesthesia Intra-op Given 10/14/2017 12:52 PM SP[employer]ING [employer] SALES ASSOCIATE 150 mg documented in this encounter Care Teams Director Workforce Management Relationship Specialty Start Date End Date Clinic, [facility] PCP - General 06/03/171999 [place] [address] documented as of this encounter
--- OUTSIDE RECORDS SUMMARY | 2022-09-20 14:00 | XMS_ITS | Encounter Summary ---
:1965 Author Organization [place] Address [address] [place] [address] Care Team Providers Name Role Phone [facility] Primary Care Provide r Mor [...] on filedocumented in this encounter Care Teams Glass Blowing Instructor Relationship Specialty Start Date End Date [facility] PCP - General 06/03/17 [facility] [address] [place] [address] Mor Bautista MD Assigned Infectious Disease 06/12/2106/25 [address] Provider [address] [place] [address] documented as of this encounter
--- OUTSIDE RECORDS SUMMARY | 2022-09-20 14:00 | XMS_ITS | Encounter Summary ---
:1965 Author Organization [place] Address [address] [place] [address] Care Team Providers Name Role Phone [facility], [facility] Primary Care Provide r Encounter Details Date Type Department Care Team Description [facility]/10[facility]2021 [facility] ProviderAlea Social History Tobacco [...] on filedocumented in this encounter Care Teams Abstractor Relationship Specialty Start Date End Date [facility] PCP - General 06/03/171999 [place] [address] documented as of this encounter
--- OUTSIDE RECORDS SUMMARY | 2022-09-20 14:00 | XMS_ITS | Encounter Summary ---
:1965 Author Organization [place] Address [address] [place] [address] Care Team Providers Name Role Phone [facility] Primary Care Provide r Encounter Details Date [...] on filedocumented in this encounter Care Teams Lead Investigator Relationship Specialty Start Date End Date [facility] PCP - General 06/03/171999 [place] [address] documented as of this encounter
--- OUTSIDE RECORDS SUMMARY | 2022-09-20 14:00 | XMS_ITS | Encounter Summary ---
:1965 Author Organization [place] Address [address] [place] [address] Care Team Providers Name Role Phone [facility], [facility] Primary Care Provider [phone] Reason for Visit Reason Comments Fall Encounter Details Date Type Department Care Team Description 05/17/2017 [facility] Acute [facility]; [facility] Emergency Dep t [facility] Shoulder strain, unspecified laterality, initial encounter [address] [place], [place] [address] [address] [phone] [place] [address] [place], [place] [address] (Wo rk) Social History Tobacco Use Types [...] contain Tylenol?? (acetaminophen), including Vicodin??, Tylenol #3??, Florence??, Lortab??, and Percocet??. You should not take [...] contain Tylenol?? (acetaminophen), including Vicodin??, Tylenol #3??, Florence??, Lortab??, and Percocet??. You should not take [...] neck fusion Reports taking tylenol 2 hrs SHEET FINISHER Jose Guadalupe Betancourt MD - 05/17/2017 7:20 [...] Surgical History: Abdomen surgery Back surgery Cholecystectomy MEAT DEPARTMENT MANAGER surgery Orthopedic Surgery Family History: History reviewed. [...] I spoke with Dr. Davis of the [facility] regarding patient's presentation, findings, [...] and the provider's statements to me. 05/17/2017 [facility] EMERGENCY DEPARTMENT Jose Guadalupe Betancourt MD [...] grams documented in this encounter Care Teams Client Support Administrator Relationship Specialty Start Date End Date [facility], [facility] PCP - General 05/17/17 06/02/[address] [place] [address] documented as of this encounter
--- OUTSIDE RECORDS SUMMARY | 2022-09-20 14:00 | XMS_ITS | Encounter Summary ---
:1965 Author Organization [place] Address [facility] [place] [address] Care Team Providers Name Role Phone Clinic, [facility] Primary Care Provide r Reason for Visit Auth/Cert Specialty Diagnoses / Procedures Referred By Contact Refer red To Contact Surgery Diagnoses URGE AND STRESS INCONTINENCE,FEMALE STRESS INCONTINENCE Sh Periop Services Procedures CYSTOSCOPY, SLING TRANSVAGINAL [address] [place] [address] Phone: Referral ID Status Reason Start Date Expiration Date Visits Requ ested Visits Authorized [id number] 1 1 Encounter Details Date Type Department Care Team Description 10/14/2017 Hospital Encounter [facility] Tesfaye, Mary Ann ss incontinence Shayne Rodrigez MD (Primary Dx) PreOP/Phase II [place] [address], UROLOGY [address] [facility] [address] [place] [address] [phone] Social History Tobacco Use Types Packs/Day Years Used Date Smoking Tobacco: Every Day Cigarettes 0.5 Smokeless Tobacco: Never Alcohol Use Standard Drinks/Week Comments No 0 (1 standard drink = 0.6 oz pure alcoho l) Sex Assigned at Date Recorded Not on file documented as of this encounter Last Filed Vital Signs Vital Sign Reading Time Taken Comments Blood Pressure 121/86 10/14/2017 4:28 PM ROOFING FOREMAN Pulse - - Temperature 36.6 ??C (97.8 ??F) 10/14/2017 3:00 PM ROOFING FOREMAN Respiratory Rate 16 10/14/2017 4:28 PM ROOFING FOREMAN Oxygen Saturation 98% 10/14/2017 4:28 PM ROOFING FOREMAN Inhaled Oxygen Concentration - - Weight 73.9 kg (163 lb) 10/14/2017 12:15 PM ROOFING FOREMAN Height 152.4 cm (5') 10/14/2017 12:15 PM ROOFING FOREMAN Body Mass Index 31.83 10/14/2017 12:15 PM ROOFING FOREMAN documented in this encounter Discharge Instructions Discharge InstructionsGi King RN - 10/14/2017 1:42 PM ROOFING FOREMAN Post Bladder Sling Instructions Dr Stafford [phone] ?? For pain you may take a narcotic/acetaminophen combination prescription for pain relief. The mostcommon pain is in the upper thighs. This usually lasts 2-3 days. You may use cold packs to this areaas needed to reduce pain and bruising. Generally xogg-lgg-ujfmqzj medicines such as ibuprofen, 3-4 tablets every [...] vaginal sutures. ?? Post op appointments: Call [phone] to schedule an appointment to see your [...] know so they can address your concerns. ING FOREMAN documented in this encounter Medications at Time [...] needed for muscle spasms naloxone (NARCAN) nasal [place] 4 mg into one 0 spray nostril [...] (Takes 2 x 5000 unit tablet = 49367 unit dose) ZONISAMIDE PO Take 300 mg [...] and was given a new prescription for [place]. Prescription for Oxycodone shredded. Patient took hard copy of new [place] prescription with her.; ING FOREMAN Vicki Matthews RN - 10/14/2017 3:39 PM CST Patient voided, bladder scan 450cc, encouraged patient to void again. Pt voided. Bladder scan for 100-150cc. Patient comfortable and ready to go home. ING FOREMAN documented in this encounter Miscellaneous Notes Op [...] note, she also underwent sling placement in [facility] and on exam I was [...] and draped in the regular fashion. A 16-Icelandic Lag[place] catheter was placed. Periurethral space was [...] EM#[id number] Name: ANGIE MOSQUERA MRN: [id number] Account: [id number] : 1965 Procedure Date: 10/14/2017 Document: [id number] cc: Rain Stafford MD ING FOREMAN documented in this encounter Plan of Treatment Not on filedocumented as of this encounter Procedures Procedure Name Priority Date/Time Associated Diagnosis Comme nts CREATION, VAGINAL 10/14/2017 12:46 PM URGE AND STRESS SLING, WITH CYSTOSCOPY ROOFING FOREMAN INCONTINENCE,FEMAL E STRESS INCONTINENCE LAB RESULT - HIM SCAN 10/11/2017 12:00 AM ROOFING FOREMAN EKG CARDIAC - HIM SCAN 08/15/2017 12:00 AM CDT XRAY IMAGING - HIM 07/25/2017 12:00 AM SCAN CDT documented in this encounter Results LAB RESULT - HIM SCAN (10/11/2017 12:00 AM ROOFING FOREMAN) Specimen (Source) Anatomical Location Collection Method / [...] ciprofloxacin (CIPRO) infusion Given 10/14/2017 12:59 PM ROOFING FOREMAN 400 mg 400 mg Routine, 400 mg, Intravenous, PRE-OP/PRE-PROCEDURE, Starting on Tue10/14/17 at 1155, For 1 dose, Irritant., Indications: Perioperative Pharmacoprophylaxis, Pre-procedure New Bag 10/14/2017 12:26 PM ROOFING FOREMAN 400 mg fentaNYL (PF) (SUBLIMAZE) injection 25-5 0 mcg Given 10/14/2017 2:01 PM ROOFING FOREMAN 50 mcg 25-50 mcg, Intravenous, EVERY 2 [...] 100 mcg., PACU Given 10/14/2017 1:50 PM ROOFING FOREMAN 50 mcg HYDROmorphone (PF) (DILAUDID) injection Given 10/14/2017 2:42 PM ROOFING FOREMAN 0.5 mg 0.3-0.5 mg 0.3-0.5 mg, Intravenous, [...] minutes., PACU/Phase II Given 10/14/2017 2:18 PM ROOFING FOREMAN 0.5 mg ondansetron (ZOFRAN) injection 4 mg Given 10/14/2017 2:18 PM ROOFING FOREMAN 4 mg 4 mg, Intravenous, EVERY 30 [...] tablet 5 mg Given 10/14/2017 2:54 PM ROOFING FOREMAN 5 mg 5 mg, Oral, ONCE, On Tue10/14/17 at 1500, For 1 dose, PACU scopolamine (TRANSDERM) 72 hr Given 10/14/2017 12:43 PM ROOFING FOREMAN 1 pa tch Behind Left Ear patch 1 patch 1 patch, Transdermal, EVERY 72 HOURS, First dose on Tue10/14/17 at 1245, Apply patch to skin, behind ear. Remove every 72 hours. Each 1.5 mg patch delivers 1 mg of scopolamine., Pre-procedure documented in this encounter Active and Recently Administered Medications Times are shown in ROOFING FOREMAN. Scheduled Medication Order 10/12/2017 10/13/2017 10/14/2017 ciprofloxacin (CIPRO) infusion 400 mg (COMPLETED) 1226 (New Bag - Provider: Rona Hanks RN)1259 (Given - Provider: Gayatri Combs APRN RETENTION MANAGER) Routine, 400 mg, Intravenous, PRE-OP/PRE -PROCEDURE, Starting [...] RN) 0.3-0.5 mg, Intravenous, EVERY 10 MIN AZ N, other, acute pain.?May administer if Respiratory [...] 1544 documented in this encounter Care Teams Igniter Assembler Relationship Specialty Start Date End Date [facility], [facility] PCP - General 06/03/171999 [place] [address] documented as of this encounter
--- OUTSIDE RECORDS SUMMARY | 2022-09-20 14:00 | XMS_ITS | Encounter Summary ---
:1965 Author Organization [place] Address [address] [place] [address] Care Team Providers Name Role Phone Clinic, [facility] Primary Care Provide r Reason for Visit Reason Comments Back Pain Neck Pain Encounter Details Date Type Department Care Team Description 06/03/2017 Emergency [facility] Heggestad, Zoey Acute mi dline low back pain, with sciatica presence unspecified; [facility] Emergency Dep phuong Flowers PA-C Chronic neck pain [address] [facility] [place], [place] [address] 8[address] [facility] [phone] [place] [phone] (Wo rk) Social History Tobacco Use [...] that she received adequate care at the [facility] hospitals that she has been too. Pt reports that she left [facility] yesterday after they did not address her issues. Pt states that she would like something to take her painaway and upset that has not been receiving adequate pain control. SW explained that this senior writer could not provide pt with pain [...] Evans RN - 06/03/2017 3:41 PM CDT signal worker is talking with patient per patient [...] pain in her sternum.She was seen at [facility] and evaluated for neck pain but left [...] and that she is seeing doctors at [facility] [place] for evaluation. She reports that most of [...] 6 months ago when she ran into [facility]. She states that she called her pain management center, [facility], and that they referred [...] vertebral body screws suggestive of possible loosening. MARELN MORALES MD Reading per radiology Lumbar spine [...] a history of chronic pain who sees [facility] for her prescription for [...] son tells me that they went to [facility] emergency room and they told the nurse that they went to [facility] emergency room as well in the past few days but nobody did anything or me. Here, the patient notes that hardware in her C-spine has loosened and she is scheduled to see [facility] physician to possibly look [...] and came to talk to me. The web content & social media manager states that the patient wanted to complain about our care to her but she had no complaints of social issues at home. signal worker referred her back to me. I [...] I did also speak to a P.A. head of precision targeting for [facility], [place], who agreed [...] observations and the provider's statements to me. [facility] EMERGENCY [facility]PARTMENT Zoey López PA-C 06/03/17 [...] Region Laterality Modality Spine, SUBRAD CT MSK, [facility] CT SPINE Compu mary Tomography Specimen [...] dose documented in this encounter Care Teams Combiner Relationship Specialty Start Date End Date Clinic, [facility] PCP - General 06/03/171999 [place] [address] documented as of this encounter
--- OUTSIDE RECORDS SUMMARY | 2022-09-20 14:00 | XMS_ITS | Encounter Summary ---
:1965 Author Organization [place] Address [address] [place] [address] Care Team Providers Name Role Phone Clinic, [facility] Primary Care Provide r Mor Bautista MD Unavailable Reason for Visit Reason Onset Date Comments Appointment 05/12/2021 Encounter Details Date Type Department Care Team Description 05/12/2021 [facility] Infectious Disease None Appointment [place] [phone] Social History Tobacco Use Types Packs/Day Years Used Date Smoking Tobacco: Every Day Cigarettes 0.5 Smokeless Tobacco: Never Alcohol Use Standard Drinks/Week Comments No 0 (1 standard drink = 0.6 oz pure alcoho l) Sex Assigned at Date Recorded Not on file documented as of this encounter Miscellaneous Notes Telephone Encounter - Tiffanie Georges - 05/12/2021 12:17 PM CDT [facility] Call Center Phone Message May a detailed message be left on voicemail: yes Reason for Call: Other: Pt requesting call back, pt stated she is returning a call to the clinic. Bread Stacker did not see any notes in the pt's chart to refer to. Pt stated she is being referred from [facility] for a staph infection in her shoulder, pt stated she is needing to be seen this week. Pt stated she has trouble finding an antibiotics that works due to all the allergies she has Action Taken: Message routed to: [facility] ([facility]): ID documented in this encounter Plan of Treatment Not on filedocumented as of this encounter Visit Diagnoses Not on filedocumented in this encounter Care Teams Motor Vehicle Escort Driver Relationship Specialty Start Date End Date Clinic, [facility] PCP - General 06/03/[address] [address] Mor Bautista MD Assigned Infectious Disease 06/12/2106/25 [address] Provider [address] [address] documented as of this encounter
--- OUTSIDE RECORDS SUMMARY | 2022-09-20 14:00 | XMS_ITS | Encounter Summary ---
:1965 Author Organization [place] Address [address] [place] [address]. [place] [address] Care Team Providers Name Role Phone Clinic, [facility] Primary Care Provide r Reason for Visit Reason Comments Consult pt here with her neighbor Arin calderon, Encounter Details Date Type Department Care Team Description 05/14/2021 Office Visit - [facility] Mor Bautista Acute he matogenous [facility] Sheldon Patel MD osteomyelitis of right [address] [place] [address] shoulder [address] (H) [address] [facility] 300 [address] [place], [place] [phone] [address] Social History Tobacco Use Types Packs/Day [...] disease history: Reviewed in the notes from [place] Medications: Reviewed prior to admission meds as [...] ?? GRAM STAIN? Gram stain performed by [place], [place] ?? Specimen Collected on Tissue - [...] this duration if possible. My cell is [phone]. I wrote for 90 days and warned pt about sunburn risk. She has hx of skin cancer. Ashley BAUTISTA MD [facility] Office [phone] documented in this encounter Plan of Treatment Not on filedocumented as of this encounter Visit Diagnoses Diagnosis Acute hematogenous osteomyelitis of righ t shoulder region (H) documented in this encounter Care Teams Box Annealer Relationship Specialty Start Date End Date Clinic, [facility] PCP - General 06/03/171999 [place] [address] documented as of this encounter
--- OUTSIDE RECORDS SUMMARY | 2022-09-20 14:01 | XMS_ITS | Encounter Summary ---
:1965 Author Organization [facility] Address [address] [place] [address] Care Team Providers Name Role Phone Jose Holden MD Primary Care Provider [phone] Reason for Visit Reason Comments UPDATE Pain Encounter Details Date Type Department Care Team Description 06/22/2018 [facility]phone [facility] Gume Pittman R, UPDATE; [facility] [address] [place] [address] [place] [address] [phone] (Wo rk) Social History Tobacco Use Types [...] Arenas RN - 06/26/2018 10:02 AM CDT Deskidding Machine Operator called patient, notified info below. Deskidding Machine Operator offered patient appt today however she cannot [...] returned post TPI's from 3 days ago. Deskidding Machine Operator called patient, she states the day of [...] post total left knee replacement ??Barriers: 1. buttermaker continuous churn opioid use ??Plan: 1. Patient education: I went over the above diagnoses and treatment plan with her and answered all of her questions. 2. Imaging review: None 3. Exercise program: Regular exercise and activity 4. Medications: No changes. Do not recommend mcfp opioid use, continue to decrease use until [...] Medicine Physical Medicine and Rehabilitation [facility]. Obi Echeverria - 06/22/2018 [...] on filedocumented in this encounter Care Teams Physicist Acoustics Relationship Specialty Start Date End Date Jose Holden MD PCP - General Otolaryngology 12/14/17 [place] [address] documented as of this encounter
--- OUTSIDE RECORDS SUMMARY | 2022-09-20 14:01 | XMS_ITS | Encounter Summary ---
:1965 Author Organization [facility] Address [address] [place] [address] Care Team Providers Name Role Phone Jose Holden MD Primary Care Provider [phone] Encounter Details Date Type Department Care Team Description 12/26/2018 Consent for [facility], CONSENT FOR Procedure/[facility] Tony Alvarado MD PROCEDURE ent Pain Management [address] [place] [phone] Social History Tobacco Use Types Packs/Day Years [...] filedocumented in this encounter Care Teams Chemical Instrumentation Officer Relationship Specialty Start Date End Date Jose Holden MD PCP - General Otolaryngology 12/14/[address] [place] [address] documented as of this encounter
--- OUTSIDE RECORDS SUMMARY | 2022-09-20 14:01 | XMS_ITS | Encounter Summary ---
:1965 [facility] Address [address] [place] [address] Care Team Providers Name Role Phone Jose Holden MD Primary Care Provider [phone] Reason for Referral Procedure/Equipment (Routine) - Closed Specialty Diagnoses / Procedures Referred By Contact Refer red To Contact Diagnoses Dizziness Concussion with loss of consciousness of 30 minutes or less, subsequent encounter Alyse Carias, PT [address] [place] [address] Referral ID Status Reason Start Date Expiration Date Visits Requ ested Visits Authorized [id number] Closed 03/06/2019 06/04/2020 20 20 Scheduling Instructions . Reason for Visit Reason Comments Concussion Therapies (Routine) - Closed Specialty Diagnoses / Procedures Referred By Contact Refer red To Contact Diagnoses Impairment of balance Dizziness Blanka Mead, LEARNING TECHNOLOGIES SPECIALIST, CN P [address] [place] [address] Referral ID Status Reason Start Date Expiration Date Visits Requ ested Visits Authorized [id number] Closed 02/16/2019 04/17/2019 1 1 Encounter Details Date Type Department Care Team Description 03/06/2019 Office Visit Alyse Bee Dizziness (Primary Dx); [facility] A, PT Concussion with loss of consciousness of 30 minutes or less, subsequent encounter Physical Therapy [address] [place] [phone] Social History Tobacco Use Types Packs/Day Years [...] impacting her status (scheduled for surgery at [place] on 02/28/19). Tinnitus- scheduled for hearing assessment [...] ER right away. She was seen at [facility]. ?? She has a past medical history [...] limited function due to PMH Lives in [place]. Independent with ADLs, driving. Current Level of Function: Currently not-employed. Lives alone in apartment. Difficulty bending down She does endorse LOS in home setting. Previous Therapy for This Condition: PT for neck (01/23/19- refaxed orders) Patient Goals: Return to previous level of function and Increased function OBJECTIVE Posture/Observations: alert, oriented, cooperative. forward head posturing. Carrying multiple bags and able to poultry picking machine tender from floor to chair without LOS. Functional [...] within her allowable cervical ROM). Access Code: [email or web address] URL: [email or web address] Date: 03/06/2019 Prepared by: Alyse Carias Exercises Standing Gaze Stabilization with Head Rotation - 1-3 reps - 30-40 seconds - 3x daily - 7x weekly Education regarding Rule of 2 -Discussed option of closer location to her home yet noted she would be able to attend at [facility]. Patient's Response to Therapy: Good Home Program [...] encounter documented in this encounter Care Teams Mri Special Procedures Technologist Relationship Specialty Start Date End Date Jose Holden MD PCP - General Otolaryngology 12/14/17 [facility] [place] [address] documented as of this encounter
--- OUTSIDE RECORDS SUMMARY | 2022-09-20 14:01 | XMS_ITS | Encounter Summary ---
:1965 Author Organization [facility] Address [address], [place] [address] Care Team Providers Name Role Phone Jose Holden MD Primary Care Provider [phone] Encounter Details Date Type Department Care Team Description 11/10/2018 Orders Only External to Pete Tamayo MD [address] [place], [place] [address] (Wo rk) Social History Tobacco Use Types [...] 11/10/2018 12:00 AM R esults for this MEDICAL DIR procedure are i n the results section. documented in this encounter Results CT SCAN SPINE--SCAN (11/10/2018 12:00 AM MEDICAL DIR) Anatomical Region Laterality Modality Other Specimen (Source) Anatomical Location Collection Method / Collectio n Time Received Time / Laterality Volume 11/10/2018 Narrative This result has an attachment that is no t available. Pete Gonzalez MD DUMMY/OTHER/AR documented in this encounter Visit Diagnoses Not on filedocumented in this encounter Care Teams Assembler Clip On Sunglasses Relationship Specialty Start Date End Date Jose Holden MD PCP - General Otolaryngology 12/14/17 [address] [place] [address] documented as of this encounter
--- OUTSIDE RECORDS SUMMARY | 2022-09-20 14:01 | XMS_ITS | Encounter Summary ---
:1965 Author Organization [facility] Address [address] [place] [address] Care Team Providers Name Role Phone Jose Holden MD Primary Care Provider [phone] Encounter Details Date Type Department Care Team Description 08/14/2018 Consent for [facility] Procedure/Treat [facility] Tony Alvarado MD FOR TX/PROCEDURE ent Pain Management [address] [place] [phone] Social History Tobacco Use Types Packs/Day Years [...] on filedocumented in this encounter Care Teams Stopboard Assembler Relationship Specialty Start Date End Date Jose Holden MD PCP - General Otolaryngology 12/14/[address] [place], [place] [phone] documented as of this encounter
--- OUTSIDE RECORDS SUMMARY | 2022-09-20 14:01 | XMS_ITS | Encounter Summary ---
:1965 Author Organization [facility] Address [address], [place] [address] Care Team Providers Name Role Phone Jose Holden MD Primary Care Provider [phone] Reason for Visit Procedure/Equipment (Routine) - Incomplete Specialty Diagnoses / Procedures Referred By Contact Refer red To Contact Diagnoses S/P cervical spinal fusion Sirisha Rankin, Procedures XR Cervical Spine AP/Lat Upright ELECTRIC POWER LINE REPAIRER, STATION SUPERINTENDENT [address] [place] [address] Referral ID Status Reason Start Date Expiration Date Visits V isits Requested Authorized [id number] Incomplete 10/10/2018 01/09/2020 1 1 Encounter Details Date Type Department Care Team Description 12/26/2018 Ancillary [facility] Sneha Maher, S/P cervi france Procedure [facility] Sirisha Celaya, ELECTRIC POWER LINE REPAIRER, spinal fusion Radiology STATION SUPERINTENDENT [address] [place] [address] [place], [place] [phone] [facility] Social History Tobacco Use Types Packs/Day [...] spin al Results for this AP/LAT UPRIGHT ADVANCED MANUFACTURING VICE PRESIDENT fusion procedure are in the results section. documented in this encounter Results XR Cervical Spine AP/Lat Upright (12/26/2018 1:44 PM ADVANCED MANUFACTURING VICE PRESIDENT) Anatomical Region Laterality Modality Spine, C-Spine, Neck Computed Radiograph y Specimen (Source) Anatomical Collection Method Collection Time Re ceived Time Location / / Volume Laterality 12/26/2018 1:44 PM ADVANCED MANUFACTURING VICE PRESIDENT Narrative 12/26/2018 3:41 PM ADVANCED MANUFACTURING VICE PRESIDENT EXAM: XR CERVICAL SPINE AP/LAT UPRIGHT LOCATION: [facility] DATE/TIME: 12/26/2018 1:44 PM INDICATION: Follow-up [...] EXAM: XR CERVICAL SPINE AP/LAT UPRIGHT LOCATION: [facility] DATE/TIME: 12/26/2018 1:44 PM INDICATION: Follow-up [...] C1-2 level on lateral view. Sirisha Maher ELECTRIC POWER LINE REPAIRER, STATION SUPERINTENDENT RAD GD documented in this encounter Visit Diagnoses Diagnosis S/P cervical spinal fusion Arthrodesis status documented in this encounter Care Teams Laundry Washer Relationship Specialty Start Date End Date Jose Holden MD PCP - General Otolaryngology 12/14/17 [place] [address] documented as of this encounter
--- OUTSIDE RECORDS SUMMARY | 2022-09-20 14:01 | XMS_ITS | Encounter Summary ---
:1965 Author [facility] Address [address] [place] [address] Care Team Providers Name Role Phone Jose Holden MD Primary Care Provider [phone] Encounter Details Date Type Department Care Team [...] HEAD 11/10/2018 12:00 AM Results for this PRODUCTION BROACHING MACHINE OPERATOR procedure are i n the results section . documented in this encounter Results CT HEAD (11/10/2018 12:00 AM PRODUCTION BROACHING MACHINE OPERATOR) Anatomical Region Laterality Modality Other Specimen (Source) Anatomical Location Collection Method / Collectio n Time Received Time / Laterality Volume 11/10/2018 Narrative This result has an attachment that is no t available. Phy No Primary/Referring DUMMY/OTHER/AR documented in this encounter Visit Diagnoses Not on filedocumented in this encounter Care Teams Metallurgical Inspector Relationship Specialty Start Date End Date Jose Holden MD PCP - General Otolaryngology 12/14/17 [place] [address] documented as of this encounter
--- OUTSIDE RECORDS SUMMARY | 2022-09-20 14:01 | XMS_ITS | Encounter Summary ---
:1965 Author Organization [facility] Address [address], [place] [address] Care Team Providers Name Role Phone Jose Holden MD Primary Care Provider [phone] Reason for Visit Reason Comments APPOINTMENT REQUEST Encounter Details Date Type Department Care Team Description 11/13/2018 Telephone [facility] Pete Gonzalez MD APPOINTMENT REQUEST [facility] [address] [place], [place] [address]E Neurosurgery/Ortho S [place], [place] [address] [place] [address] [place] [address] [phone] Social History Tobacco Use Types Packs/Day Years [...] Jana Marcos - 11/16/2018 3:46 PM CST Splitter Hand spoke to the pt and helped schedule an appt with Dr. Gonzalez on 12/26/17 at 1:40PM. Pt was in agreement of date, time and location. Jana Marcos 11/16/2018, 3:46 PM TECHNICAL WRITER Chava Simon RN - 11/16/2018 1:15 PM CST Per Sirisha Rolandson Gunnar, HERD TESTER: patient can follow up with Dr. Gonzalez with repeat upright cervical XRs. Rachid: please call patient and assist in scheduling her for an appointment with Dr. Gonzalez at next available with XR Chava Simon RN 11/16/2018, 1:20 PM TECHNICAL WRITER Chava Simon RN - 11/16/2018 11:15 AM [...] Walker RN - 11/15/2018 11:21 AM CST [facility]- still have not received CD from [place]. If patient calls back, please let [...] plan? Chava Simon RN 11/13/2018, 9:12 AM TECHNICAL WRITER Michael Cruz - 11/13/2018 8:23 AM CST Patient called in requesting for an appointment with Dr. Gonzalez himself only and not APPs. She states she fell on ice last week 11/09/18 and went to [facility] to be evaluated. She reports the [...] Gonzalez to ensure everything is well as [place] is not theones who did surgery on her and cannot compare this to before and after surgery. Splitter Hand called [facility] and spoke with Mandy in the film room. They are not able to push imaging but they can send a CD. Address was provided for her of mail stop [id number] [facility] Attn: Dr. Gonzalez. She states the report will also be included in the CD. She then transferred me to Medical Records. Splitter Hand spoke with Shauna who states patient will need to sign an CODI to obtain ED note from 11/09/18 to be sent to us as they are not affiliated with [employer] system. Splitter Hand reached patient and relayed she would need [...] being sent. Michael Cruz 11/13/2018, 8:43 AM TECHNICAL WRITER documented in this encounter Plan of Treatment Not on filedocumented as of this encounter Visit Diagnoses Diagnosis S/P cervical spinal fusion - Primary Arthrodesis status documented in this encounter Care Teams Staff Readiness Officer Relationship Specialty Start Date End Date Jose Holden MD PCP - General Otolaryngology 12/14/17 [place] [address] documented as of this encounter
--- OUTSIDE RECORDS SUMMARY | 2022-09-20 14:01 | XMS_ITS | Encounter Summary ---
:1965 Author Organization [facility] Address [address] [place] [address] Care Team Providers Name Role Phone Jose Holden MD Primary Care Provider [phone] Encounter Details Date Type Department Care Team Description 06/20/2018 Consent for [facility] Procedure/Treat [facility] Tony Alvarado MD FOR TX/PROCEDURE ent Pain Management [address] [place] [phone] Social History Tobacco Use Types Packs/Day Years [...] on filedocumented in this encounter Care Teams Call Centre Supervisor Relationship Specialty Start Date End Date Jose Holden MD PCP - General Otolaryngology 12/14/[address] [place], [place] [phone] documented as of this encounter
--- OUTSIDE RECORDS SUMMARY | 2022-09-20 14:01 | XMS_ITS | Encounter Summary ---
:1965 Author Organization [facility] Address [address] [place] [address] Care Team Providers Name Role Phone Jose Holden MD Primary Care Provider [phone] Reason for Visit Reason Comments UPDATE Encounter Details Date Type Department Care Team Description 07/07/2018 Telephone [facility] Gume Pittman, [facility] [address] [place] [address] [place] [address] [phone] (Wo rk) Social History Tobacco Use Types [...] Arenas RN - 07/07/2018 12:44 PM CDT Shape Carver called patient, she states she has left neck/shoulder pain that did not improve after TPI's last week. Pt shares her right side of neck/shoulder is getting tight again and she is having headaches. Pt wants to proceed with occipital nerve blocks for her headache. Shape Carver offered patient appointment 07/10 which she accepted. [...] blocks instead in the future ??Barriers: 1. intermediate opioid use ??Plan: 1. Patient education: I [...] filedocumented in this encounter Care Teams Plater Production Relationship Specialty Start Date End Date Jose Holden MD PCP - General Otolaryngology 12/14/17 [place] [address] documented as of this encounter
--- OUTSIDE RECORDS SUMMARY | 2022-09-20 14:01 | XMS_ITS | Encounter Summary ---
:1965 Author [facility] Address [address], [place] [address] Care Team Providers Name Role Phone Jose Holden MD Primary Care Provider [phone] Reason for Visit Reason Comments Revisit trigger point injections/occ ipital nerve blocks Encounter Details Date Type Department Care Team Description 03/06/2019 Office Visit [facility] Pittman, Bilateral occ ipital neuralgia (Primary Dx); [facility] Carole Bowden Myalgia; Pain Management [address] Cervical vertebral fusion; [address] [place], [place] Spondylosis of cervical princess on [place] [phone] Social History Tobacco Use Types Packs/Day Years [...] treatment plan is, please contact me via Samanage online messaging or call the office at and ask to speak to a nurse. Tony Pittman MD Pain Medicine documented in this encounter Progress Notes Tony Pittman MD - 03/06/2019 2:45 PM CDT [facility] [place] [facility] Follow-up Visit 03/06/2019 Interim history: [...] mg Q6H - Prescribes by [facility], has been taking for many [...] pain clinic in the past. [facility] physical therapy: Past Acupuncture: None [...] ??? medical cannabis patient certified Take 1 [place] by mouth . ??? naloxone (NARCAN) 4 [...] facility-administered medications prior to visit. [place] and [place] Prescription Monitoring Program reviewed Allergies: [...] in her mother. Social history:she lives in [place], [place].she is not currently working. Smokin/2 ppd. [...] limited. Significant posterior surgical deformity of neck. Produce Laborer to palpation bilateral levator scapulae, splenius, trapezius [...] Pain Medicine Physical Medicine and Rehabilitation [facility] [place] This note created using speech-recognition [...] myelopathy documented in this encounter Care Teams Creping Machine Operator Helper Relationship Specialty Start Date End Date Jose Holden MD PCP - General Otolaryngology 12/14/[address] [place] [address] documented as of this encounter
--- OUTSIDE RECORDS SUMMARY | 2022-09-20 14:01 | XMS_ITS | Encounter Summary ---
:1965 Author Organization [facility] Address [address] [place] [address] Care Team Providers Name Role Phone Jose Holden MD Primary Care Provider [phone] Encounter Details Date Type Department Care Team Description 07/10/2018 Consent for [facility] E[facility] Procedure/Treat [facility] Tony Alvarado MD FOR TX/PROCEDURE ent Pain Management [address] [place] [phone] Social History Tobacco Use Types Packs/Day Years [...] on filedocumented in this encounter Care Teams Physician Assistant Surgery Relationship Specialty Start Date End Date Jose Holden MD PCP - General Otolaryngology 12/14/[address] [place], [place] [phone] documented as of this encounter
--- OUTSIDE RECORDS SUMMARY | 2022-09-20 14:01 | XMS_ITS | Encounter Summary ---
:1965 Author Organization [facility] Address [address], [place] [address] Care Team Providers Name Role Phone Jose Holden MD Primary Care Provider [phone] Reason for Visit Reason Comments Revisit Encounter Details Date Type Department Care Team Description 08/14/2018 Office Visit [facility] Pete Gonzalez, Neck pain (Primary [facility] MD Dx) Neurosurgery/Ortho [address] [facility] Spine [address] [facility] [place], [place] [address] [address] [phone] Social History Tobacco Use Types Packs/Day Years [...] Surgery center (4th floor [address], [place]).prior to your next appointment. Follow up: with [...] your understanding. Please call the Neurosurgery Center [phone] with any further questions or concerns or [...] Cervicalgia documented in this encounter Care Teams Brim Buster Relationship Specialty Start Date End Date Jose Holden MD PCP - General Otolaryngology 12/14/17 [facility] [place] [address] documented as of this encounter
--- OUTSIDE RECORDS SUMMARY | 2022-09-20 14:01 | XMS_ITS | Encounter Summary ---
:1965 Author Organization [facility] Address [address] [address] Care Team Providers Name Role Phone Jose Holden MD Primary Care Provider [phone] Reason for Visit Reason Comments Revisit occipital nerve block Encounter Details Date Type Department Care Team Description 07/10/2018 Office Visit [facility] Frank occipital neuralgia (Primary Dx); [facility] Pain RMD Myalgia; Management [address] H/O cervical spinal arthrodesis [address] [place] [address] [phone] Social History Tobacco Use Types Packs/Day Years [...] treatment plan is, please contact me via Light [employer] online messaging or call the office at and ask to speak to a nurse. Tony Pittman MD Pain Medicine documented in this encounter Progress Notes Tony Pittman MD - 07/10/2018 3:45 PM CDT [facility] Follow-up Visit 07/10/2018 Interim [...] Q6H - Prescribes by [facility], has been taking for [...] clinic in the past. [facility] physical therapy: Past Acupuncture: [...] cervical fusion 2017 Dr. Ihsan Brooke, [facility] [...] ??? medical cannabis patient certified Take 1 [place] by mouth . ??? naloxone (NARCAN) 4 [...] facility-administered medications prior to visit. [place] and [place] Prescription Monitoring Program reviewed Allergies: [...] in her mother. Social history:she lives in [place], [place].she is not currently working. Smokin/2 ppd. 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 Patient education: [...] behalf by Gillian Harding, a trained medical education manager. The creation of this record is [...] status documented in this encounter Care Teams Fruit Harvester Machine Operator Relationship Specialty Start Date End Date Jose Holden MD PCP - General Otolaryngology 12/14/[address] [place], [place] [address] [address] documented as of this encounter
--- OUTSIDE RECORDS SUMMARY | 2022-09-20 14:01 | XMS_ITS | Encounter Summary ---
:1965 Author Organization [facility] Address [address] [place] [address] Care Team Providers Name Role Phone Jose Holden MD Primary Care Provider [phone] Encounter Details Date Type Department Care Team Description 03/06/2019 Consent for [facility] ENT Procedure/Treat [facility] Tony Alvarado MD BUPREN[facility]PHINE ent Pain Management [address] TREATMENT [address] [place] [phone] Social History Tobacco Use Types Packs/Day Years [...] on filedocumented in this encounter Care Teams Greenkeeper Relationship Specialty Start Date End Date Jose Holden MD PCP - General Otolaryngology 12/14/[address] [place] [address] documented as of this encounter
--- OUTSIDE RECORDS SUMMARY | 2022-09-20 14:01 | XMS_ITS | Encounter Summary ---
:1965 Author Organization [facility] Address [address] [place] [address] Care Team Providers Name Role Phone Jose Holden MD Primary Care Provider [phone] Encounter Details Date Type Department Care Team Description 04/09/2019 Notes/Orders [facility] Neuroscience Jose Carias, Center Steam Cleaning Machine Operator apy PT [address] [place] [address] [place] [address] [phone] (Wo rk) Social History Tobacco Use Types [...] CDT PHYSICAL THERAPY DISCHARGE NOTE Angie Mosquera [id number] Payor: MEDICARE / Plan: MEDICARE / Product [...] filedocumented in this encounter Care Teams Store Host Relationship Specialty Start Date End Date Jose Holden MD PCP - General Otolaryngology 12/14/17 [place] [address] documented as of this encounter
--- OUTSIDE RECORDS SUMMARY | 2022-09-20 14:01 | XMS_ITS | Encounter Summary ---
:1965 Author Organization [facility] Address [address] [place] [address] Care Team Providers Name Role Phone Jose Holden MD Primary Care Provider [phone] Reason for Referral Consult/Transfer Care (Routine) - Closed Specialty Diagnoses / Procedures Referred By Contact Refer red To Contact Diagnoses Traumatic brain injury, without loss of consciousness, initial encounter (HRC) Tony Pittman MD [address] [place] [address] Referral ID Status Reason Start Date Expiration Date Visits Requ ested Visits Authorized [id number] Closed 12/26/2018 03/26/2020 1 1 Scheduling Instructions Your provider [facility] You may call to schedule your appointment. If you prefer, a hospice nurse practitioner will contact you [facility] the next 3 business days to assist you in setting up this appointment. ANALYST Reason for Visit Reason Comments Revisit Bilateral cervical/thoracic trigger point injections Encounter Details Date Type Department Care Team Description 12/26/2018 Office Visit Tony Huggins occipital neuralgia (Primary Dx); [facility] Pain RMD Myalgia; Management [address] H/O cervical spinal arthrodesis; [address] [place], [place] Traumatic brain injury, with out loss of consciousness, initial encounter (HRC) [place] [phone] Social History Tobacco Use Types Packs/Day Years [...] Comments Blood Pressure 115/72 12/26/2018 2:48 PM CRM ANALYST Pulse 70 12/26/2018 2:48 PM CRM ANALYST Temperature - - Respiratory Rate - - [...] treatment plan is, please contact me via Ak?Lex online messaging or call the office at and ask to speak to a nurse. Tony Pittman MD Pain Medicine ANALYST documented in this encounter Progress Notes Tony [...] from [facility] in [place] and does not planon decreasing her dosage. [...] medical cannabis patient certified Take 1 [place] by mouth . ??? naloxone (NARCAN) 4 [...] Gain No facility-administered medications prior to visit. [place] and [place] Prescription Monitoring Program reviewed Allergies: [...] in her mother. Social history:she lives in [place], [place].she is not currently working. Smokin/2 ppd. [...] to traumatic brain injury clinic. 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 Patient education: [...] behalf by Gillian Harding, a trained medical reimbursement manager. The creation of this record is based on the scribe's personal observations and the provider's statements to her. The document has been checked and approved by the attending provider. ANALYST documented in this encounter Plan of Treatment Scheduled Referrals Name Type Priority Associated Diagnoses Order S [facility] Referral Routine Traumatic brain injury, with out loss Ordered: 12/26/2018 of consciousness, initial en counter (HRC) documented as of this encounter Visit Diagnoses Diagnosis Bilateral occipital neuralgia - Primary Myalgia Mylagia and myositis, unspecified H/O cervical spinal arthrodesis Arthrodesis status Traumatic brain injury, without loss of consciousness, initial encounter (HRC) documented in this encounter Care Teams Advertising Consultant Relationship Specialty Start Date End Date Jose Holden MD PCP - General Otolaryngology 12/14/[address] [place] [address] documented as of this encounter
--- OUTSIDE RECORDS SUMMARY | 2022-09-20 14:01 | XMS_ITS | Encounter Summary ---
:1965 [facility] Address [address] [place] [address] Care Team Providers Name Role Phone Jose Holden MD Primary Care Provider [phone] Encounter Details Date Type Department Care [...] 11/10/2018 12:00 AM R esults for this APPELLATE COURT JUDGE procedure are i n the results section. documented in this encounter Results CT SCAN SPINE--SCAN (11/10/2018 12:[address] JUDGE) Anatomical Region Laterality Modality Other Specimen (Source) Anatomical Location Collection Method / Collectio n Time Received Time / Laterality Volume 11/10/2018 Narrative This result has an attachment that is no t available. Phy No Primary/Referring DUMMY/OTHER/AR documented in this encounter Visit Diagnoses Not on filedocumented in this encounter Care Teams Communication Arts Lecturer Relationship Specialty Start Date End Date Jose Holden MD PCP - General Otolaryngology 12/14/[address] [place] [address] documented as of this encounter
--- OUTSIDE RECORDS SUMMARY | 2022-09-20 14:01 | XMS_ITS | Encounter Summary ---
:1965 [facility] Address [address] [place] [address] Care Team Providers Name Role Phone Jose Holden MD Primary Care Provider [phone] Reason for Referral Therapies (Routine) - Closed Specialty Diagnoses / Procedures Referred By Contact Refer red To Contact Diagnoses S/P cervical spinal fusion Pete Gonzalez MD [address] [place] [address] Referral ID Status Reason Start Date Expiration Date Visits Requ ested Visits Authorized [id number] Closed 06/26/2018 08/25/2018 1 1 Scheduling Instructions Your provider has recommended an appoint ment with a [facility] Physical Therapist. Please stop at the clinic check out desk for assistance with scheduling or if you prefer to call for your appointment you may call [facility] Outpatient Rehabilitation [employer] at [phone]. We suggest yo u call your health insurance company about your coverage and benefits for this appo intment. Reason for Visit Reason Comments RESULTS, TEST Orders Needed Encounter Details Date Type Department Care Team Description 06/22/2018 Telephone [facility] Pete Gonzalez MD RESULTS, TEST; Orders Neuroscience Center [address] [facility] eded Neurosurgery/Ortho S [address] [place] [address] [place] [id number] (Wo rk) Social History Tobacco Use Types [...] getting a stimulator or morphine pump through [facility]. She is wondering if she should wait and discuss possible surgical options with Dr. Gonzalez or just get the stimulator or morphine pump? Please advise. Chava Simon RN 06/28/2018, 8:45 AM Michael Cruz - 06/28/2018 8:25 AM CDT Patient calling in regards to her imaging results. Steam Gigger relayed message from Lois Pham PA-C. Patient states that she would like a return call. Patient states she doesn't understand why there are no acute concerns? She will be seeing [facility] to discuss getting a stimulator or morphine pump. Patient would like to know if she should move forward with this from Neurosurgery standpoint. Please call patient to further discuss and advise. Michael Cruz 06/28/2018, 8:27 AM Chava Simon RN - 06/28/2018 8:24 AM CDT [facility] Chava Simon RN 06/28/2018, 8:26 [...] Michael Cruz - 06/26/2018 11:18 AM CDT Steam Gigger reached patient and relayed message below to her. Patient expressed her appreciation. Per herrequest order has been sent to [facility] outpatient rehabilitation services at [phone] with a note to have them call patient to schedule. Patient aware they will reach out to schedule her for PT. She also states she picked up a copy of her imaging and they relayed that they had alreadysent one. Steam Gigger called their radiology department and spoke to Selena who states a CD was not mailed out and she is not sure why. She took down clinic address of [address] [address] and stated she would send one out [...] sure she has had this sent from [facility] for team to review. Chava Simon [...] of CT and MRIthat were done at [facility] on 06/20. Informed pt that Dr. [...] status documented in this encounter Care Teams Petroleum Engineering Professor Relationship Specialty Start Date End Date Jose Holden MD PCP - General Otolaryngology 12/14/17 [facility] [place] [address] documented as of this encounter
--- OUTSIDE RECORDS SUMMARY | 2022-09-20 14:01 | XMS_ITS | Encounter Summary ---
:1965 Author Organization [facility]ending [facility] Address [address] [address] Care Team Providers Name Role Phone Jose Holden MD Primary Care Provider [phone] Reason for Referral Therapies (Routine) - Closed Specialty Diagnoses / Procedures Referred By Contact Refer red To Contact Diagnoses S/P cervical spinal fusion Pete Gonzalez MD [address] [place] [address] Referral ID Status Reason Start Date Expiration Date Visits Requ ested Visits Authorized [id number] Closed 08/16/2018 10/15/2018 1 1 Scheduling [facility] has recommended an appoin tment with a [facility] Physical Therapist. Please stop at the clinic check out desk for assistance with scheduling or if you prefer to call for your appointment you may call [facility] Outpatient Rehabilitation at [phone]. We suggest you call your [facility] insurance company about your coverage and benefits for this appointment. Encounter Details Date Type Department Care Team Description 07/07/2018 Telephone [facility] Neuroscience Pete Gonzalez MD Center Neurosurgery/Ortho [address] [facility] Spine [place], [place] [address] [address] [place] [address] [phone] Social History Tobacco Use Types Packs/Day Years [...] Del Toro - 08/16/2018 1:41 PM CDT [employer] contacted patient 08/16-faxed order to [facility] [phone] per patient request Chava Simon RN - [...] Name Type Priority Associated Diagnoses [facility] Referral Routine S/P cervical spinal fusi on Ordered: 08/16/2018 documented as of this encounter Visit Diagnoses Diagnosis S/P cervical spinal fusion - Primary Arthrodesis status documented in this encounter Care Teams Sand Wheeler Relationship Specialty Start Date End Date Jose Holden MD PCP - General Otolaryngology 12/14/17 [place] [address] documented as of this encounter
--- OUTSIDE RECORDS SUMMARY | 2022-09-20 14:01 | XMS_ITS | Encounter Summary ---
:1965 Author Organization [facility] Address [address] [place] [address] Care Team Providers Name Role Phone Jose Holden MD Primary Care Provider [phone] Encounter Details Date Type Department Care Team [...] this encounter Care Teams Associate Professor Of Education Relationship Specialty Start Date End Date Jose Holden MD PCP - General Otolaryngology 12/14/17 [address] [place] [address] documented as of this encounter
--- OUTSIDE RECORDS SUMMARY | 2022-09-20 14:01 | XMS_ITS | Encounter Summary ---
:1965 [facility] Address [address], [place] [address] Care Team Providers Name Role Phone Jose Holden MD Primary Care Provider [phone] Encounter Details Date Type Department Care Team Description 11/10/2018 Emergency Room External to External, Provid er FALL/HEADACHE NECK LT No address [place] [address] Social History Tobacco Use Types Packs/Day Years [...] on filedocumented in this encounter Care Teams University Registrar Relationship Specialty Start Date End Date Jose Holden MD PCP - General Otolaryngology 12/14/17 [place] [address] documented as of this encounter
--- OUTSIDE RECORDS SUMMARY | 2022-09-20 14:01 | XMS_ITS | Encounter Summary ---
:1965 Author Organization [facility] Address [address] [place] [address] Care Team Providers Name Role Phone Jose Holden MD Primary Care Provider [phone] Reason for Visit Reason Comments Medication Request Encounter Details Date Type Department Care Team Description 12/08/2019 Telephone Careline Unknown, Physician Medication Request [address] [place], [place] [address] [place], [place] [phone] (Wo rk) Social History Tobacco Use Types [...] pain medication. Pt advised to surgeon at [place]. R UP documented in this encounter Plan of Treatment Not on filedocumented as of this encounter Visit Diagnoses Not on filedocumented in this encounter Care Teams Logistics Operations Manager Relationship Specialty Start Date End Date Jose Holden MD PCP - General Otolaryngology 12/14/17 [address] [place] [address] documented as of this encounter
--- OUTSIDE RECORDS SUMMARY | 2022-09-20 14:01 | XMS_ITS | Encounter Summary ---
:1965 Author Organization [facility] Address [address] [place] [address] Care Team Providers Name Role Phone Jose Holden MD Primary Care Provider [phone] Reason for Visit Reason Comments Revisit repeat injections Occipital VS Trigger point Encounter Details Date Type Department Care Team Description 02/06/2019 Office Visit [facility], Bilateral occ ipital neuralgia (Primary Dx); [facility] Carole Bowden Myalgia; Pain Management [address] Fibromyalgia; [address] [place], [place] Cervical vertebral fusion; [place] [address] Spondylosis of cervical region without m yelopathy or radiculopathy [phone] Social History Tobacco Use Types Packs/Day Years [...] treatment plan is, please contact me via [employer] online messaging or call the office at and ask to speak to a nurse. Tony Pittman MD Pain Medicine documented in this encounter Progress Notes Tony Pittman MD - 02/06/2019 2:30 PM CDT [facility] Follow-up Visit 02/06/2019 [...] Oxycodone 5 mg Q6H - Prescribes by [facility], has [...] at a pain clinic in the past. [facility] physical [...] ??? medical cannabis patient certified Take 1 [place] by mouth . ??? naloxone (NARCAN) 4 [...] facility-administered medications prior to visit. [place] and [place] Prescription Monitoring Program reviewed Allergies: [...] in her mother. Social history:she lives in [place], [place].she is not currently working. Smokin/2 ppd. [...] These are unchanged from previous. 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 Patient education: [...] MD Pain Medicine Physical Medicine and Rehabilitation [facility] This note created [...] myelopathy documented in this encounter Care Teams Speech Instructor Relationship Specialty Start Date End Date Jose Holden MD PCP - General Otolaryngology 12/14/[address] [place] [address] documented as of this encounter
--- OUTSIDE RECORDS SUMMARY | 2022-09-20 14:01 | XMS_ITS | Encounter Summary ---
:1965 Author Organization [facility] Address [address] [address] Care Team Providers Name Role Phone Jose Holden MD Primary Care Provider [phone] Reason for Visit Reason Comments Revisit Bilateral cervical/thoracic trigger point injections Encounter Details Date Type Department Care Team Description 08/14/2018 Office Visit [facility] occipital neuralgia (Primary Dx); [facility] Pain RMD Myalgia; Management [address] H/O cervical spinal arthrodesis [address] [place] [id number] Social History Tobacco Use Types Packs/Day Years [...] Pittman MD - 08/14/2018 3:00 PM CDT [facility] Follow-up Visit 08/14/2018 Interim history: [...] Oxycodone 5 mg Q6H - Prescribes by [facility], has been taking for [...] at a pain clinic in the past. [facility] physical therapy: Past Acupuncture: [...] ??? medical cannabis patient certified Take 1 [place] by mouth . ??? naloxone (NARCAN) 4 [...] facility-administered medications prior to visit. [place] and [place] Prescription Monitoring Program reviewed Allergies: Allergies Allergen [...] in her mother. Social history:she lives in [place], [place].she is not currently working. Smokin/2 ppd. 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 Patient education: I [...] MD Pain Medicine [facility] This document serves as a record of services personally performed by Tony Pittman MD. It was created on his behalf by Gillian Harding, a trained medical accountant. The creation of this record is based [...] status documented in this encounter Care Teams Lumber Racker Relationship Specialty Start Date End Date Jose Holden MD PCP - General Otolaryngology 12/14/17 [facility] [place] [address] documented as of this encounter
--- OUTSIDE RECORDS SUMMARY | 2022-09-20 14:01 | XMS_ITS | Encounter Summary ---
:1965 Author Organization [facility] Address [address] [place] [address] Care Team Providers Name Role Phone Jose Holden MD Primary Care Provider [phone] Encounter Details Date Type Department Care Team Description 06/29/2018 Consent for [facility] E[facility] Procedure/Treat [facility] Tony Alvarado MD FOR TX/PROCEDURE ent Pain Management [address] [place] [phone] Social History Tobacco Use Types Packs/Day Years [...] on filedocumented in this encounter Care Teams Mill Washer Relationship Specialty Start Date End Date Jose Holden MD PCP - General Otolaryngology 12/14/[address] [place], [place] [id number] documented as of this encounter
--- OUTSIDE RECORDS SUMMARY | 2022-09-20 14:01 | XMS_ITS | Encounter Summary ---
:1965 Author [facility] Address [address] [place] [address] Care Team Providers Name Role Phone Jose Holden MD Primary Care Provider [phone] Encounter Details Date Type Department Care Team [...] filedocumented in this encounter Care Teams Health And Wellness Director Relationship Specialty Start Date End Date Jose Holden MD PCP - General Otolaryngology 12/14/17 [place] [address] documented as of this encounter
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
--- OUTSIDE RECORDS SUMMARY | 2022-09-20 14:01 | XMS_ITS | Encounter Summary ---
:1965 [facility] Address [address] [place] [address] Care Team Providers Name Role Phone Jose Holden MD Primary Care Provider [phone] Encounter Details Date Type Department Care [...] filedocumented in this encounter Care Teams Foreign Agent Relationship Specialty Start Date End Date Jose Holden MD PCP - General Otolaryngology 12/14/17 [address] [place] [address] documented as of this encounter
--- OUTSIDE RECORDS SUMMARY | 2022-09-20 14:01 | XMS_ITS | Encounter Summary ---
:1965 Author Organization [facility] Address [address] [place] [address] Care Team Providers Name Role Phone Jose Holden MD Primary Care Provider [phone] Encounter Details Date Type Department Care Team Description 02/06/2019 Consent for [facility] Procedure/Treatm [facility] Tony Alvarado MD FOR TX/PROCEDURE ent Pain Management [address] [place] [phone] Social History Tobacco Use Types Packs/Day Years [...] on filedocumented in this encounter Care Teams Kettle Chipper Relationship Specialty Start Date End Date Jose Holden MD PCP - General Otolaryngology 12/14/[address] [place], [place] [phone] documented as of this encounter
--- OUTSIDE RECORDS SUMMARY | 2022-09-20 14:01 | XMS_ITS | Encounter Summary ---
:[address] [facility] Address [address], [place] [address] Care Team Providers Name Role Phone Jose Holden MD Primary Care Provider [phone] Reason for Referral Procedure/Equipment (Routine) - Closed Specialty Diagnoses / Procedures Referred By Contact Refer red To Contact Diagnoses Intractable acute post-traumatic headache Blanka Mead APRN, CN P [address] [place] [address] Referral ID Status Reason Start Date Expiration Date Visits Requ ested Visits Authorized [id number] Closed 02/16/2019 05/17/2020 1 1 Scheduling Instructions . herapies (Routine) - Closed Specialty Diagnoses / Procedures Referred By Contact Refer red To Contact Diagnoses Impairment of balance Dizziness Blanka Mead APRN, CN P [address] [place] [address] Referral ID Status Reason Start Date Expiration Date Visits Requ ested Visits Authorized [id number] Closed 02/16/2019 04/17/2019 1 1 Scheduling Instructions Your provider has recommended an appoint ment with a [facility] Physical Therapist. Please stop at the clinic check out desk for assistance with scheduling or if you prefer to call for your appointment you may call [facility] Outpatient Rehabilitation at [phone]. We suggest you call your [facility] insurance company about your coverage and benefits for this appointment. Reason for Visit Reason Comments Consult, New Patient Consult/Transfer Care (Routine) - Closed Specialty Diagnoses / Procedures Referred By Contact Refer red To Contact Diagnoses Traumatic brain injury, without loss of consciousness, initial encounter (HRC) Tony Pittman MD [address] [place] [address] Referral ID Status Reason Start Date Expiration Date Visits Requ ested Visits Authorized [id number] Closed 12/26/2018 03/26/2020 1 1 Encounter Details Date Type Department Care Team Description 02/16/2019 Office Visit [facility], Impairment of balance (Primary Dx); [facility] Blanka Coulter s; Physical Medicine NIKKY Chavez, Intractable acute post-traum atic headache [address] [facility] [address] [address] [facility] [phone] [place] [address] Social History Tobacco Use Types [...] Body Mass Index 33.01 12/26/2018 1:48 PM COIL CONNECTOR documented in this encounter Patient Instructions Patient [...] If you need to reschedule, please call [phone] as soon as you know you will not be able to make the appointment. If you have any questions or concerns, please call the clinic at [phone]. ?? If tests are needed, you will [...] treatment plan is please contact us at [phone] or send us a secure message via [employer]. If you need follow-up in the future, please call [phone] for an appointment. If you cannot get a time that satisfies you, please let us know what times work for you and we will do our best to accommodate you. Thank you for choosing Blanka Mead APRN, CNP and [facility] Physical Medicine and Rehabilitation. documented in [...] ER right away. She was seen at [facility]. According to the note from [facility]: the patient fell approximately 20 hours before being seenon 11/10/2018 with a presentation of headache neck pain left shoulder pain left knee pain left hip pain out of proportion to the mechanism of injury. The patient's a 53-year-old female well-known to [facility] with multiple comorbid medical and psychosocial issues, [...] sees Dr. Bullard with neurosurgery at [facility]. She has a past medical history of [...] ??? medical cannabis patient certified Take 1 [place] by mouth . ??? naloxone (NARCAN) 4 [...] EXAM: XR CERVICAL SPINE AP/LAT UPRIGHT LOCATION: [facility] DATE/TIME: 12/26/2018 1:44 PM ?? [...] able to review her head CT from [facility] as well as her cervical spine CT. Findings obtained by [facility] on 11/10/2018 showed CSF spaces within normal [...] headache documented in this encounter Care Teams Behavioral Health Specialist Relationship Specialty Start Date End Date Jose Holden MD PCP - General Otolaryngology 12/14/17 [facility] [place] [address] documented as of this encounter
--- OUTSIDE RECORDS SUMMARY | 2022-09-20 14:01 | XMS_ITS | Encounter Summary ---
:1965 Author Organization [facility] Address [address] [address] Care Team Providers Name Role Phone Jose Holden MD Primary Care Provider [phone] Reason for Visit Reason Comments Forms Encounter Details Date Type Department Care Team Description 07/11/2018 Telephone [facility] Pete Gonzalez MD Forms Center Neurosurgery/Ortho [address] [facility] Spine [place], [place] [address] [address] [place] [address] [phone] Social History Tobacco Use Types Packs/Day Years [...] filedocumented in this encounter Care Teams Investment Director Relationship Specialty Start Date End Date Jose Holden MD PCP - General Otolaryngology 12/14/17 [place] [address] documented as of this encounter
--- OUTSIDE RECORDS SUMMARY | 2022-09-20 14:01 | XMS_ITS | Encounter Summary ---
:1965 Author Organization [facility] Address [address] [place] [address] Care Team Providers Name Role Phone Jose Holden MD Primary Care Provider [phone] Reason for Referral Therapies (Routine) - Closed Specialty Diagnoses / Procedures Referred By Contact Refer red To Contact Diagnoses S/P cervical spinal fusion Pete Gonzalez MD [facility] [address] [place] [address] Referral ID Status Reason Start Date Expiration Date Visits Requ ested Visits Authorized [id number] Closed 12/26/2018 02/24/2019 1 1 Scheduling Instructions Your provider has recommended an appoint ment with a [facility] Physical Therapist. Please stop at the clinic check out desk for assistance with scheduling or if you prefer to call for your appointment you may call [facility] Outpatient Rehabilitation at [phone]. We suggest you call your [facility] insurance company about your coverage and benefits for this appointment. ER TECHNICIAN Reason for Visit Reason Comments Revisit Encounter Details Date Type Department Care Team Description 12/26/2018 Office Visit [facility] Pete Gonzalez, S/P miguelito al spinal [facility] fusion (Primary Dx) [facility] [facility] [address] [place] [address] [place] [address] [phone] Social History Tobacco Use Types Packs/Day Years [...] Comments Blood Pressure 115/72 12/26/2018 1:48 PM BURNER TECHNICIAN Pulse 70 12/26/2018 1:48 PM BURNER TECHNICIAN Temperature 36.5 ??C (97.7 ??F) 12/26/2018 1:48 PM BURNER TECHNICIAN Respiratory Rate - - Oxygen Saturation - - Inhaled Oxygen Concentration - - Weight 71.2 kg (157 lb) 12/26/2018 1:48 PM BURNER TECHNICIAN Height 152.4 cm (5') 12/26/2018 1:48 PM BURNER TECHNICIAN Body Mass Index 30.66 12/26/2018 1:48 PM BURNER TECHNICIAN documented in this encounter Patient Instructions [...] your understanding. Please call the Neurosurgery Center [phone] with any further questions or concerns or if your symptoms worsen. Thank you for coming to see us today. We are your partner. ER TECHNICIAN documented in this encounter Progress Notes Pete [...] at her current physical therapy Center at [facility] and also continued pain management in the [...] prone to typos and grammatical errors. ER TECHNICIAN documented in this encounter Plan of Treatment Scheduled Referrals Name Type Priority Associated Diagnoses Order S [facility] Physical Therapy Referral Routine S/P cervical spinal fusi on Ordered: 12/26/2018 documented as of this encounter Visit Diagnoses Diagnosis S/P cervical spinal fusion - Primary Arthrodesis status documented in this encounter Care Teams Runner Man Relationship Specialty Start Date End Date Jose Holden MD PCP - General Otolaryngology 12/14/17 [place] [address] documented as of this encounter
--- OUTSIDE RECORDS SUMMARY | 2022-09-20 14:01 | XMS_ITS | Encounter Summary ---
:1965 Author [facility] Address [address], [place] [address] Care Team Providers Name Role Phone Jose Holden MD Primary Care Provider [phone] Reason for Visit Reason Comments Injection Encounter Details Date Type Department Care Team Description 09/04/2018 Telephone [facility] Pete Gonzalez MD Injection Center Neurosurgery/Ortho [address] [facility] [facility] Spine [place], [place] [address] [address] [place] [address] [phone] Social History Tobacco Use Types Packs/Day Years [...] 09/05/2018 10:13 AM CDT Per Sirisha Maher, PARKER: cannot write letter. Okay for repeat bilateral [...] Cervicalgia documented in this encounter Care Teams Chandelier Maker Relationship Specialty Start Date End Date Jose Holden MD PCP - General Otolaryngology 12/14/17 [place] [id number] documented as of this encounter
--- OUTSIDE RECORDS SUMMARY | 2022-09-20 14:01 | XMS_ITS | Encounter Summary ---
:1965 Author [facility] Address [address] [place] [address] Care Team Providers Name Role Phone Jose Holden MD Primary Care Provider [phone] Reason for Visit Reason Comments Revisit trigger point injections Encounter Details Date Type Department Care Team Description 06/29/2018 Office Visit [facility] Myalgia (Primary Dx); [facility] Raul Alvaraod MD Medical marijuana use; Management [address] H/O cervical spinal arthrodesis; [address] [place], [place] [address] [phone] Social History Tobacco Use Types Packs/Day Years [...] plan is, please contact me via [employer] online messaging or call the office at and ask to speak to a nurse. Tony Pittman MD Pain Medicine documented in this encounter Progress Notes Tony Pittman MD - 06/29/2018 10:20 AM CDT [facility] Follow-up Visit 06/29/2018 Interim history: [...] Oxycodone 5 mg Q6H - Prescribes by [facility], has been taking for [...] at a pain clinic in the past. [facility] physical therapy: Past Acupuncture: [...] ??? medical cannabis patient certified Take 1 [place] by mouth . ??? naloxone (NARCAN) 4 [...] Gain No facility-administered medications prior to visit. [place] and [place] Prescription Monitoring Program reviewed Allergies: Allergies Allergen [...] in her mother. Social history:she lives in [place], [place].she is not currently working. Smokin/2 ppd. [...] blocks instead in the future Barriers: 1. tank terminal gauger opioid use Plan: 1. Patient [...] MD Pain Medicine Physical Medicine and Rehabilitation [facility] Pain Management This document serves as a record of services personally performed by Tony Pittman MD. It was created on his behalf by Gillian Harding, a trained senior medical billing specialist. The creation of this record is [...] disorder documented in this encounter Care Teams Tick Sewer Relationship Specialty Start Date End Date Jose Holden MD PCP - General Otolaryngology 12/14/[address] [place] [address] documented as of this encounter
--- OUTSIDE RECORDS SUMMARY | 2022-09-20 14:02 | XMS_ITS | Encounter Summary ---
:1965 Author Organization [facility] Address [address] [address] Care Team Providers Name Role Phone Jose Holden MD Primary Care Provider Reason for Referral Procedure/Equipment (Routine) - Incomplete Specialty Diagnoses / Procedures Referred By Contact Refer red To Contact Diagnoses S/P cervical spinal fusion Sirisha Rankin, Procedures XR Cervical Spine AP/Lat Upright KALPANA SHER [address] [place] [address] Referral ID Status Reason Start Date Expiration Date Visits V isits Requested Authorized [id number] Incomplete 04/05/2018 07/05/2019 1 1 Reason for Visit Reason Comments POST-OP,EXAM Encounter Details Date Type Department Care Team Description 04/05/2018 Office Visit [facility] Sneha Maher, S/Camelia cervic al spinal [facility] RODRICK Newberry CNP fusion (Primary Dx) Neurosurgery/Ortho [address] Spine [place], [place] [address] [address] [place] [address] [phone] Social History Tobacco Use Types Packs/Day Years [...] your understanding. Please call the Neurosurgery Center [phone] with any further questions or concerns or if your symptoms worsen. Thank you for coming to see us today. We are your partner. documented in this encounter Progress Notes Sirisha Rankin, CLOTHING EXAMINER, AOC DIRECTOR COMBAT PLANS OFFICER - 04/05/2018 1:00 PM CDT POSTOPERATIVE DIAGNOSES: [...] Gonzalez prior to her move out of [facility]. She denies any incisional concerns. [...] elbow(tricep) R:5/5 L: 5/5 C8 - Finger flexors(commissioning editor) R:5/5 L: 5/5 T1 - Finger abduction/adduction [...] soft tissue swelling. Remainder unchanged. Sirisha Maher CLOTHING EXAMINER, AOC DIRECTOR COMBAT PLANS OFFICER RAD GD documented in this encounter Visit Diagnoses Diagnosis S/P cervical spinal fusion - Primary Arthrodesis status S/P cervical spinal fusion Arthrodesis status documented in this encounter Care Teams Supervisor Opening And Picking Relationship Specialty Start Date End Date Jose Holden MD PCP - General Otolaryngology 12/14/17 [place] [address] documented as of this encounter
--- OUTSIDE RECORDS SUMMARY | 2022-09-20 14:02 | XMS_ITS | Encounter Summary ---
:1965 Author Organization [facility] Address [address], [place] [address] Care Team Providers Name Role Phone Jose Holden MD Primary Care Provider [phone] Reason for Visit Procedure/Equipment (Routine) - Incomplete Specialty Diagnoses / Procedures Referred By Contact Refer red To Contact Diagnoses Cervical spondylosis with radiculopathy (HRC) Sneha Maher, Sirisha Celaya, Procedures XR Cervical Spine AP/Lat Upright SCENE AND LIGHTING DESIGN LECTURER, ENGINE LATHE TENDER [address] [place] [address] Referral ID Status Reason Start Date Expiration Date Visits V isits Requested Authorized [id number] Incomplete 02/21/2018 05/23/2019 1 1 Encounter Details Date Type Department Care Team Description 04/05/2018 Imaging [facility] Sneha Maher, Cervical spondylosis [facility] Sirisha Celaya, APR N, ENGINE LATHE TENDER with radiculopathy Radiology [address] [place] [address] [phone] (Wo rk) Social History Tobacco Use Types [...] Anatomic alignment. Shoulder prosthesis. Sirisha Yomi Maher SCENE AND LIGHTING DESIGN LECTURER, ENGINE LATHE TENDER RAD GD documented in this encounter Visit Diagnoses Diagnosis Cervical spondylosis with radiculopathy (HRC) Cervical spondylosis with myelopathy documented in this encounter Care Teams Attendance Officer Relationship Specialty Start Date End Date Jose Holden MD PCP - General Otolaryngology 12/14/[address] [place], [place] [address] [address] documented as of this encounter
--- OUTSIDE RECORDS SUMMARY | 2022-09-20 14:02 | XMS_ITS | Encounter Summary ---
:1965 Author [facility] Address [address] [place] [address] Care Team Providers Name Role Phone Jose Holden MD Primary Care Provider [phone] Reason for Visit Procedure/Equipment (Routine) - Incomplete Specialty Diagnoses / Procedures Referred By Contact Refer red To Contact Diagnoses S/P cervical spinal fusion Sirisha Rankin, Procedures XR Cervical Spine AP/Lat Upright ORDER FULFILLMENT SPECIALIST, CAMP TENDER [address] [place] [address] Referral ID Status Reason Start Date Expiration Date Visits V isits Requested Authorized [id number] Incomplete 04/05/2018 07/05/2019 1 1 Encounter Details Date Type Department Care Team Description 06/14/2018 Imaging [facility] Sneha Maher, S/P cervi [facility] spinal [facility] Sirisha Celaya, APR N, CAMP TENDER fusion Radiology [address] [place] [address] [place] [address] [phone] Social History Tobacco Use Types Packs/Day Years [...] PM CDT Narrative 06/14/2018 5:54 PM CDT [facility] XR CERVICAL SPINE AP/LAT UPRIGHT 06/14/2018 1:41 [...] note might be different from the original. [facility] XR CERVICAL SPINE AP/LAT UPRIGHT 06/14/2018 1:41 [...] soft tissue swelling. Remainder unchanged. Sirisha Maher ORDER FULFILLMENT SPECIALIST, CAMP TENDER RAD GD documented in this encounter Visit Diagnoses Diagnosis S/P cervical spinal fusion Arthrodesis status documented in this encounter Care Teams Dispensing Operator Relationship Specialty Start Date End Date Jose Holden MD PCP - General Otolaryngology 12/14/17 [place] [address] documented as of this encounter
--- OUTSIDE RECORDS SUMMARY | 2022-09-20 14:02 | XMS_ITS | Encounter Summary ---
:1965 Author Organization [facility] Address [address] [place] [address] Care Team Providers Name Role Phone Jose Holden MD Primary Care Provider [phone] Reason for Visit Reason Comments Medication Questions FYI Encounter Details Date Type Department Care Team Description 03/01/2018 Telephone [facility] Pete Gonzalez MD Medication Questions; Neuro[facility] [address] [place] [address] FY I Neurosurgery/Ortho S [place] [address] [place] [address] [place] [address] [phone] (Wo rk) Social History Tobacco Use Types [...] filedocumented in this encounter Care Teams Chemical Analytical Sampler Relationship Specialty Start Date End Date Jose Holden MD PCP - General Otolaryngology 12/14/17 [facility] [place] [address] documented as of this encounter
--- OUTSIDE RECORDS SUMMARY | 2022-09-20 14:02 | XMS_ITS | Encounter Summary ---
:1965 Author Organization [facility] Address [address], [place] [address] Care Team Providers Name Role Phone Jose Holden MD Primary Care Provider [phone] Reason for Visit Reason Comments QUESTIONS, GENERAL Encounter Details Date Type Department Care Team Description 02/24/2018 Telephone [facility] Pete Gonzalez MD QUESTIONS, GENERAL [facility] [address] [facility] ALIYAH Neurosurgery/Ortho S [place], [place] [address] [address] [place] [address] [phone] Social History Tobacco Use Types Packs/Day Years [...] currently doing PT which was ordered through [facility] for her shoulder. She is worried [...] on filedocumented in this encounter Care Teams Clinic Physician Relationship Specialty Start Date End Date Jose Holden MD PCP - General Otolaryngology 12/14/17 [facility] [place] [address] documented as of this encounter
--- OUTSIDE RECORDS SUMMARY | 2022-09-20 14:02 | XMS_ITS | Encounter Summary ---
:1965 Author Organization [facility] Address [address] [place] [address] Care Team Providers Name Role Phone Jose Holden MD Primary Care Provider [phone] Encounter Details Date Type Department Care Team Description 03/24/2018 [facility] Chava Simon RN [place] Neurosurgery/ Ortho Spine [address] [place] [address] Social History Tobacco Use Types Packs/Day [...] RN 03/24/2018, 10:24 AM Sirisha Rankin, NIKKY, PATIENT DAY COORDINATOR - 03/24/2018 9:52 AM CDT Continue to monitor symptoms. No change in plan/appointment at this time. We will review cervical CTwhen it is available. Sirisha Jefferson APRN, PATIENT DAY COORDINATOR 03/24/2018, 9:53 AM Chava Simon RN - 03/24/2018 9:23 AM CDT Patient called and state she was in a little accident last night. She ended up going to [facility]. They did imaging of neck and [...] positioning. Patient states she is able to picked edge sewing machine operator a coffee cup with left [...] clinic on 03/27/18 which were done at [facility]) Chava Simon RN 03/24/2018, 9:37 AM documented in this encounter Plan of Treatment Not on filedocumented as of this encounter Visit Diagnoses Not on filedocumented in this encounter Care Teams Cash Control Specialist Relationship Specialty Start Date End Date Jose Holden MD PCP - General Otolaryngology 12/14/[address] [place] [address] documented as of this encounter
--- OUTSIDE RECORDS SUMMARY | 2022-09-20 14:02 | XMS_ITS | Encounter Summary ---
:1965 [facility] Address [address], [place] [address] Care Team Providers Name Role Phone Jose Holden MD Primary Care Provider [phone] Reason for Visit Reason Comments Refill Encounter Details Date Type Department Care Team Description 03/07/2018 [facility] Peet Gonzalez MD Refill Center [facility] [address] [facility] [place] [address] [address] [place] [address] [phone] Social History Tobacco Use Types Packs/Day Years [...] on filedocumented in this encounter Care Teams Damage Assessor Relationship Specialty Start Date End Date Jose Holden MD PCP - General Otolaryngology 12/14/[address] [place] [address] documented as of this encounter
--- OUTSIDE RECORDS SUMMARY | 2022-09-20 14:02 | XMS_ITS | Encounter Summary ---
:1965 Author Organization [facility] Address [address], [place] [address] Care Team Providers Name Role Phone Jose Holden MD Primary Care Provider [phone] Reason for Visit Reason Comments Medication Check In Encounter Details Date Type Department Care Team Description 03/07/2018 Telephone [facility] Pete Gonzalez MD Medication Check In [facility] [address] [facility] Neuro[facility]Ortho S [place], [place] [address] [address] [place] [address] [phone] Social History Tobacco Use Types Packs/Day Years [...] 12:25 PM CDT Pharmacist Mandy calling from [facility]. She would like to inform provider [...] filedocumented in this encounter Care Teams Solid Waste Management Engineer Relationship Specialty Start Date End Date Jose Holden MD PCP - General Otolaryngology 12/14/17 [place] [address] documented as of this encounter
--- OUTSIDE RECORDS SUMMARY | 2022-09-20 14:02 | XMS_ITS | Encounter Summary ---
:1965 Author Organization [facility] Address [address] [address] Care Team Providers Name Role Phone Jose Holden MD Primary Care Provider [phone] Reason for Visit Reason Comments POST-OP,EXAM Encounter Details Date Type Department Care Team Description 03/07/2018 Office Visit [facility] Denis P ostop check (Primary Center Neurosurgery/Ortho Dx ) Spine [address] [place], [place] [address] Social History Tobacco Use Types Packs/Day Years [...] understanding. Please call the Neurosurgery/Spine Clinic at [phone] with any further questions or concerns. documented [...] surgery documented in this encounter Care Teams Sewage Disposal Engineer Relationship Specialty Start Date End Date Jose Holden MD PCP - General Otolaryngology 12/14/17 [facility] [place] [address] documented as of this encounter
--- OUTSIDE RECORDS SUMMARY | 2022-09-20 14:02 | XMS_ITS | Encounter Summary ---
:1965 Author Organization [facility] Address [address] [place] [address] Care Team Providers Name Role Phone Jose Holden MD Primary Care Provider [phone] Reason for Referral Procedure/Equipment (Routine) - Closed Specialty Diagnoses / Procedures Referred By Contact Refer red To Contact Diagnoses Neck pain Pete Gonzalez MD [address] [place] [address] Referral ID Status Reason Start Date Expiration Date Visits Requ ested Visits Authorized [id number] Closed 06/14/2018 12/11/2018 1 1 Scheduling Instructions [...] Dx); Neuroscience Center Neck pain Neurosurgery/Ortho [address] [facility] Spine S [address] [place] [address] [place] [id number] Social History Tobacco Use Types Packs/Day Years [...] your understanding. Please call the Neurosurgery Center [phone] with any further questions or concerns or [...] Cervicalgia documented in this encounter Care Teams Editor Dictionary Relationship Specialty Start Date End Date Jose Holden MD PCP - General Otolaryngology 12/14/17 [place] [address] documented as of this encounter
--- OUTSIDE RECORDS SUMMARY | 2022-09-20 14:02 | XMS_ITS | Encounter Summary ---
:1965 Author Organization [facility] Address [address], [place] [address] Care Team Providers Name Role Phone Jose Holden MD Primary Care Provider [phone] Reason for Visit Reason Onset Date Comments Refill 03/01/2018 Encounter Details Date Type Department Care Team Description 03/01/2018 Refill [facility] Neuroscience [place] Chava Simon RN Refill Neurosurgery/Ortho S [address] [place] [address] Social History Tobacco Use Types [...] as per standard weaning. Sirisha Jefferson APRN, BURLAPPER 03/01/2018, 11:49 AM Chava Simon RN - [...] pt. have a f/u appointment: 04/05/2018 Pharmacy: [facility] Chava Simon RN 03/01/2018, 11:40 AM documented in this encounter Plan of Treatment Not on filedocumented as of this encounter Visit Diagnoses Not on filedocumented in this encounter Care Teams Application Technician Relationship Specialty Start Date End Date Jose Holden MD PCP - General Otolaryngology 12/14/[address] [place], [place] [address] [address] documented as of this encounter
--- OUTSIDE RECORDS SUMMARY | 2022-09-20 14:02 | XMS_ITS | Encounter Summary ---
:1965 Author Organization [facility] Address [address], [place] [address] Care Team Providers Name Role Phone Jose Holden MD Primary Care Provider [phone] Reason for Visit Reason Comments QUESTIONS, GENERAL Encounter Details Date Type Department Care Team Description 03/01/2018 Telephone [facility] Pete Gonzalez MD QUESTIONS, GENERAL [facility] [address] [facility] AL[facility]YAH Neurosurgery/Ortho S [place], [place] [address] [address] [place] [address] [phone] Social History Tobacco Use Types Packs/Day Years [...] she should go to the ED in [place]? Please review and advise. Chantel Angela 03/01/2018, 11:15 AM documented in this encounter Plan of Treatment Not on filedocumented as of this encounter Visit Diagnoses Not on filedocumented in this encounter Care Teams Mirror Silverer Relationship Specialty Start Date End Date Jose Holden MD PCP - General Otolaryngology 12/14/17 [facility] [place] [address] documented as of this encounter
--- OUTSIDE RECORDS SUMMARY | 2022-09-20 14:02 | XMS_ITS | Encounter Summary ---
:1965 Author Organization [facility] Address [address] [place] [address] Care Team Providers Name Role Phone Jose Holden MD Primary Care Provider [phone] Reason for Visit Reason Comments Revisit Bilateral cervical/thoracic trigger point injections Encounter Details Date Type Department Care Team Description 06/20/2018 [facility] Visit [facility] Myalgia (Primary Dx); [facility] Center Pain RMD H/O cervical spinal arthrodesis; Management [address] Cervical vertebral fusion; [address] [place], [place] Fibromyalgia; [place] [address] Tobacco use disorder; [phone] Status post tot al left knee replacement [...] medications, in ALL states. As laws can roll changer time, one should review the state [...] treatment plan is, please contact me via Slingjot online messaging or call the office at [...] Oxycodone 5 mg Q6H - Prescribes by [facility], has been taking for [...] at a pain clinic in the past. [facility] physical therapy: Past Acupuncture: [...] facility-administered medications prior to visit. [place] and [place] Prescription Monitoring Program reviewed Allergies: Allergies Allergen [...] in her mother. Social history:she lives in [place], [place].she is not currently working. Smokin/2 ppd. 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 Patient education: I went over the above diagnoses and treatment plan with her and answered all of her questions. 2. Imaging review: None 3. Exercise program: Regular exercise and activity 4. Medications: No changes. Do not recommend thermodynamics teacher opioid use, continue to decrease use [...] Medicine Physical Medicine and Rehabilitation [facility] This document serves as a record of services personally performed by Tony Pittman MD. It was created on his behalf by Gillian Harding, a trained medical laboratory assistant. The creation of this record is [...] replacement documented in this encounter Care Teams Ground Layer Relationship Specialty Start Date End Date Jose Holden MD PCP - General Otolaryngology 12/14/17 [facility] [place] [address] documented as of this encounter
--- OUTSIDE RECORDS SUMMARY | 2022-09-20 14:03 | XMS_ITS | Encounter Summary ---
:1965 Author Organization [facility] Address [address] [address] Care Team Providers Name Role Phone Jose Holden MD Primary Care Provider [phone] Reason for Visit Reason Comments QUESTIONS, GENERAL Encounter Details Date Type Department Care Team Description 02/03/2018 Telephone [facility] Pete Gonzalez MD QUESTIONS, GENERAL [facility] [address] [facility] AL[facility] Neurosurgery/Ortho S [place], [place] [address] [address] [place] [address] [phone] Social History Tobacco Use Types Packs/Day Years [...] PA. Chava Simon RN 02/03/2018, 12:01 PM UNITY RELATIONS SPECIALIST Gi De La Vega - 02/03/2018 11:55 AM CST Patient calling to speak to Jamir. Would like to know about her surgery. Environmental Geologist did let patient know that Ana Rosa outpatient scheduler is out of the office. She did request to speak to Jamir. Please call her at listed number. Thanks UNITY RELATIONS SPECIALIST documented in this encounter Plan of Treatment Not on filedocumented as of this encounter Visit Diagnoses Not on filedocumented in this encounter Care Teams Reading Instructor Relationship Specialty Start Date End Date Jose Holden MD PCP - General Otolaryngology 12/14/[address] [place], [place] [address] [address] documented as of this encounter
--- OUTSIDE RECORDS SUMMARY | 2022-09-20 14:03 | XMS_ITS | Encounter Summary ---
:1965 Author Organization [facility] Address [address] [place] [address] Care Team Providers Name Role Phone Jose Holden MD Primary Care Provider [phone] Encounter Details Date Type Department Care Team Description 02/13/2018 Orders Only External to [facility] External, [place] [address] Social History Tobacco Use Types Packs/Day Years [...] on filedocumented in this encounter Care Teams Refrigeration Specialist Relationship Specialty Start Date End Date Jose Holden MD PCP - General Otolaryngology 12/14/17 [place] [address] documented as of this encounter
--- OUTSIDE RECORDS SUMMARY | 2022-09-20 14:03 | XMS_ITS | Encounter Summary ---
:1965 Author Organization [facility] Address [address], [place] [address] Care Team Providers Name Role Phone Jose Holden MD Primary Care Provider [phone] Reason for Visit Reason Comments QUESTIONS, GENERAL Encounter Details Date Type Department Care Team Description 01/25/2018 Telephone [facility] Pete Gonzalez MD QUESTIONS, GENERAL [facility]science Center [address] [facility] ALIYAH Neurosurgery/Ortho S [place], [place] [address] [address] [place] [address] [phone] Social History Tobacco Use Types Packs/Day Years [...] she should receive a call from the scowman in the next 1-3 weeks to discuss her surgery/date. Patient stated understanding and will call with any updates or changes. Chava Simon RN 01/25/2018, 11:04 AM S SERVICE TECHNICIAN Gi De La Vega 01/25/2018 10:56 AM CST Patient calling to speak to RN. Regarding her MRI scan. S SERVICE TECHNICIAN documented in this encounter Plan of Treatment Not on filedocumented as of this encounter Visit Diagnoses Not on filedocumented in this encounter Care Teams Business Information Analyst Relationship Specialty Start Date End Date Jose Holden MD PCP - General Otolaryngology 12/14/[address] [place] [address] documented as of this encounter
--- OUTSIDE RECORDS SUMMARY | 2022-09-20 14:03 | XMS_ITS | Encounter Summary ---
:1965 Author Organization [facility] Address [address] [place] [address] Care Team Providers Name Role Phone Jose Holden MD Primary Care Provider [phone] Encounter Details Date Type Department Care Team Description 01/20/2018 Telephone [facility]science Chava Simon RN Center Neurosurgery/ Ortho Spine [address] [place] [address] Social History Tobacco Use Types Packs/Day [...] placed. Chava Simon RN 01/25/2018, 8:24 AM T II FARMWORKER Chava Simon RN - 01/24/2018 12:[address] Gonzalez reviewed imaging and is waiting until appropriate time to place case request. Chava Simon RN 01/24/2018, 12:45 PM T II FARMWORKER Gi De La Vega - 01/20/2018 11:21 AM CST Patient called to speak to RN. She has a new phone number. Please call her at [phone]. thanks T II FARMWORKER Chava Simon RN - 01/20/2018 11:15 AM CST Images from the original note were not included. Team please have Dr. Gonzalez review imaging which is now on PACs and place case request. Chava Simon RN 01/20/2018, 11:18 AM T II FARMWORKER documented in this encounter Plan of Treatment Not on filedocumented as of this encounter Visit Diagnoses Not on filedocumented in this encounter Care Teams Special Education Assistant Relationship Specialty Start Date End Date Jose Holden MD PCP - General Otolaryngology 12/14/[address] [place], [place] [address] [address] documented as of this encounter
--- OUTSIDE RECORDS SUMMARY | 2022-09-20 14:03 | XMS_ITS | Encounter Summary ---
:1965 Author Organization [facility] Address [address] [place] [address] Care Team Providers Name Role Phone Jose Holden MD Primary Care Provider [phone] Encounter Details Date Type Department Care Team Description 02/07/2018 [facility] Chava Simon RN [facility] [address] [place] [address]. [place] [address] Social History Tobacco Use Types [...] Noted. Will watch for preop note. Chava iSmon RN 02/08/2018, 3:06 PM Chilo Holden - 02/08/2018 1:44 PM CDT Angie Mosquera returned call and stated that her pre-op is scheduled for 02/13/18 at [facility]. Clinic fax # was given. Patient will have clearance note faxed to clinic. Will post pone message to after the to check and see if pre-op has been received yet. Michael Cruz - 02/08/2018 1:37 PM CDT [facility] Michael Cruz 02/08/2018, 1:37 PM Michael Cruz Porfirio - 02/07/2018 11:27 AM CDT [facility] Michael Monroy Anthony 02/07/2018, 11:27 AM [...] on filedocumented in this encounter Care Teams Layer Out Relationship Specialty Start Date End Date Jose Holden MD PCP - General Otolaryngology 12/14/17 [facility] [place] [address] documented as of this encounter
--- OUTSIDE RECORDS SUMMARY | 2022-09-20 14:03 | XMS_ITS | Encounter Summary ---
:1965 Author [facility] Address [address], [place] [address] Care Team Providers Name Role Phone Jose Holden MD Primary Care Provider [phone] Reason for Visit Auth/Cert Specialty Diagnoses / [...] Expiration Date Visits Requ ested Visits Authorized [id number] 1 1 Encounter Details Date Type Department Care Team Description 02/20/2018 [facility] Pete Gonzalez MD [address] [place] [address] [place] [address] [phone] (Wo rk) Social History Tobacco Use Types [...] 12:36 PM CDT Fluoroscopy provided by a phlebotomy technologist. Exact fluoroscopy time is documented in end of exam information in EPIC Pete Gonzalez MD RAD GD documented in this encounter Visit Diagnoses Not on filedocumented in this encounter Care Teams Terrestrial Ecologist Relationship Specialty Start Date End Date Jose Holden MD PCP - General Otolaryngology 12/14/[address] [place] [id number] documented as of this encounter
--- OUTSIDE RECORDS SUMMARY | 2022-09-20 14:03 | XMS_ITS | Encounter Summary ---
:1965 [facility] Address [address] [place] [address] Care Team Providers Name Role Phone Jose Holden MD Primary Care Provider [phone] Encounter Details Date Type Department Care [...] on filedocumented in this encounter Care Teams Sequins Stringer Relationship Specialty Start Date End Date Jose Holden MD PCP - General Otolaryngology 12/14/17 [place] [address] documented as of this encounter
--- OUTSIDE RECORDS SUMMARY | 2022-09-20 14:03 | XMS_ITS | Encounter Summary ---
:1965 Author Organization [facility] Address [address] [place] [address] Care Team Providers Name Role Phone Jose Holden MD Primary Care Provider [phone] Reason for Referral (Routine) - Incomplete Specialty [...] (*), IMAGE GUIDANCE ADD ON SPINE (*) [place] [address] Referral ID Status Reason Start Date Expiration Date Visits V isits Requested Authorized [id number] Incomplete 01/25/2018 04/26/2019 1 1 [facility] Encounter Details Date Type Department Care Team Description 01/25/2018 [facility] for [facility] Pete Gonzalez, Cervical s pondylosis with radiculopathy (Primary Dx); [facility] 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 [address] [place] [address] [phone] Social History Tobacco Use Types Packs/Day Years [...] Cervicalgia documented in this encounter Care Teams Genetics Physician Relationship Specialty Start Date End Date Jose Holden MD PCP - General Otolaryngology 12/14/17 [facility] [place] [address] documented as of this encounter
--- OUTSIDE RECORDS SUMMARY | 2022-09-20 14:03 | XMS_ITS | Encounter Summary ---
:1965 [facility] Address [address], [place] [address] Care Team Providers Name Role Phone Jose Holden MD Primary Care Provider [phone] Encounter Details Date Type Department Care Team Description 02/13/2018 Orders Only External to Jose Holden MD [address] [place], [place] [address] (Wo rk) Social History [...] MD PCP - General Otolaryngology 12/14/17 [address] [place] [address] documented as of this encounter
--- OUTSIDE RECORDS SUMMARY | 2022-09-20 14:03 | XMS_ITS | Encounter Summary ---
:1965 [facility] Address [address] [address] Care Team Providers Name Role Phone Jose [...] filedocumented in this encounter Care Teams Supervisor [employer] Relationship Specialty Start Date End Date Jose Holden MD PCP - General Otolaryngology 12/14/17 [place] [address] documented as of this encounter
--- OUTSIDE RECORDS SUMMARY | 2022-09-20 14:03 | XMS_ITS | Encounter Summary ---
:1965 Author [facility] Address [address] [address] Care Team Providers Name Role Phone Jose Holden MD Primary Care Provider [phone] Reason for Visit Auth/Cert Specialty Diagnoses [...] Expiration Date Visits Requ ested Visits Authorized [id number] 1 1 Encounter Details Date Type Department Care Team Description 02/20/2018 [facility] Pete Gonzalez MD [address] [place] [address] [place] [address] [phone] (Wo rk) Social History Tobacco Use Types [...] filedocumented in this encounter Care Teams Hand Stemmer Relationship Specialty Start Date End Date Jose Holden MD PCP - General Otolaryngology 12/14/[address] [place] [phone] (work) documented as of this encounter
--- OUTSIDE RECORDS SUMMARY | 2022-09-20 14:03 | XMS_ITS | Encounter Summary ---
:1965 Author Organization [facility] Address [address], [place] [address] Care Team Providers Name Role Phone Jose Holden MD Primary Care Provider [phone] Reason for Visit Auth/Cert Specialty Diagnoses / [...] Expiration Date Visits Requ ested Visits Authorized [id number] 1 1 Encounter Details Date Type Department Care Team Description 02/20/2018 [facility] Pete Gonzalez MD [address] [place] [address] [place] [address] [phone] (Wo rk) Social History Tobacco Use Types [...] PM CDT Fluoroscopy provided by a radiology ct technologist. Exact fluoroscopy time is documented in end of exam information in EPIC Pete Gonzalez MD RAD GD documented in this encounter Visit Diagnoses Not on filedocumented in this encounter Care Teams Manager Project Management Relationship Specialty Start Date End Date Jose Holden MD PCP - General Otolaryngology 12/14/17 [facility] [place] [address] documented as of this encounter
--- OUTSIDE RECORDS SUMMARY | 2022-09-20 14:03 | XMS_ITS | Encounter Summary ---
:[address] [facility] [facility] Address [address] [place] [address] Care Team Providers Name Role Phone Jose Holden MD Primary Care Provider [phone] Encounter Details Date Type Department Care Team Description 02/13/2018 Orders Only External to [facility] External, [place] [address] Social History Tobacco Use Types Packs/Day Years [...] on filedocumented in this encounter Care Teams Booking Prizer Relationship Specialty Start Date End Date Jose Holden MD PCP - General Otolaryngology 12/14/17 [place] [address] documented as of this encounter
--- OUTSIDE RECORDS SUMMARY | 2022-09-20 14:03 | XMS_ITS | Encounter Summary ---
:1965 [facility] Address [address] [address] Care Team Providers Name Role Phone Jose Holden MD Primary Care Provider [phone] Reason for Referral Procedure/Equipment (Routine) - Incomplete Specialty Diagnoses / Procedures Referred By Contact Refer red To Contact Diagnoses Cervical spondylosis with radiculopathy (HRC) Sirisha Rankin, Procedures XR Cervical Spine AP/Lat Upright KALPANA SHER [address] [place] [address] Referral ID Status Reason Start Date Expiration Date Visits V isits Requested Authorized [id number] Incomplete 02/21/2018 05/23/2019 1 1 (Routine) Specialty Diagnoses / Procedures Referred By Contact Refer red To Contact Sirisha Rankin APRN, CNP [address] [place] [address] Referral ID Status Reason Start Date Expiration Date Visits Requ ested Visits Authorized (Routine) - Incomplete Specialty Diagnoses / Procedures Referred By Contact Refer red To Contact Procedures Marky Gonzalez MD XR C-Arm 0-30 Minutes [address] [place] [address] Referral ID Status Reason Start Date Expiration Date Visits V isits Requested Authorized [id number] Incomplete 02/20/2018 05/22/2019 1 1 Procedure/Equipment (Routine) - Incomplete Specialty Diagnoses / Procedures Referred By Contact Refer red To Contact Procedures Lois Pham, STEPHANIE XR Cervical Spine AP/Lat [address] [place], [place] [address] Referral ID Status Reason Start Date Expiration Date Visits V isits Requested Authorized [id number] Incomplete 02/20/2018 05/22/2019 1 1 (Routine) - Incomplete Specialty Diagnoses / Procedures Referred By Contact Refer red To Contact Procedures Marky Gonzalez MD XR C-Arm 30-[address] [place] [address] XR C-Arm 0-30 Minutes [place], [place] [address] Referral ID Status Reason Start Date Expiration Date Visits V isits Requested Authorized [id number] Incomplete 02/20/2018 05/22/2019 1 1 (Routine) - Incomplete Specialty Diagnoses / Procedures Referred By Contact Refer red To Contact Procedures Marky Gonzalez MD XR C-Arm 2.5-[address] [place] [address] Referral ID Status Reason Start Date Expiration Date Visits V isits Requested Authorized [id number] Incomplete 02/20/2018 05/22/2019 1 1 Reason for [...] Expiration Date Visits Requ ested Visits Authorized [id number] 1 1 Encounter Details Date Type Department Care Team Description 02/20/2018 - Hospital [facility] Marky Gonzalez, Cervical spondylosis with ra diculopathy (Primary Dx); 02/23/2018 Encounter [address] Ervin MD Cervical vertebral fusion; [place], [place] [id number] [place] 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 ([facility]); [address] Neck pain; [phone] [facility], Screening procedure; [place] [address] Pseudarthrosis after fusion or arthrodes is; [phone] Bipolar II diso rder ([facility]); (Work) Moderate persistent asthma without statu [...] in this encounter Discharge Summaries Sirisha Rankin, STOVE MECHANIC, BOX CUTTER - 02/23/2018 9:09 AM CDT Neurosurgery Discharge [...] Course: Angie Bender was admitted to [facility] on 02/20/2018 following posterior C2-T3 with [...] - 12.4 fl Narrative Performed at [facility], [address] [place] [address] Physical Exam: BP 124/78 Pulse 74 Temp [...] in strength to your extremeties. Neurosurgery clinic [phone]. If it is after hours, please call [...] RN on 03/07 at 11AM at [address] [facility], 2nd floor. 2. Follow up with Dr. Gonzalez/Lois Pham PA-C/Sirisha Maher NP on 04[facility]00PM [facility] Patient also instructed to call clinic at [phone] or hospital for any questions or concerns. Patient verbalizes understanding and states no further questions at this time. 3. Follow up with PCP for any medical issues Total time spent at the time of discharge was 30 minutes Sirisha Maher APRN, CNP [facility]#[phone] documented in this encounter Discharge Instructions Discharge InstructionsDonna Ellis RN - 02/23/2018 10:42 AM CDT Hospital Contact Information [address] [address] General Information Discharging physician: Dr. Gonzalez [facility] Resources Emergency & Urgently Needed Care: For emergencies call 911 and/or get medical help right away. If you are a [facility] member and have medical needs after clinic hours you [facility] [phone] or . Fall Prevention Recommendations ??? Follow [...] of Report --- Sneha Maher, Sirisha Celaya, STOVE MECHANIC, BOX CUTTER - 02/23/2018 9:02 AM CDT Neurosurgery Progress [...] including C3- T1 posterior fusion (done in [place] approx 6 years ago), with C6-T1 pseudoarthrosis, [...] Dc home today ?? Sirisha Maher, NIKKY, BOX CUTTER 02/23/2018, 9:02 AM Neurosurgery Pgr#[phone] Jolene Kaur PA-C - 02/22/2018 12:45 PM [...] including C3- T1 posterior fusion (done in [place] approx 6 years ago), with C6-T1 pseudoarthrosis, [...] Lois Pham PA-C, 02/22/2018, 9:05 AM Neurosurgery [phone] He Reyes MD - 02/22/2018 8:29 AM [...] He Reyes M.D. [facility] [phone] INTERVAL HISTORY: She started tizanidine last night [...] 0.8 mg 0.8 mg Oral Daily Jolene aKur PA-C 0.8 mg at 02/22/18 0743 ??? [...] TIME SPENT: 35 minutes including 50% time okeh-mi-ypdc time counseling her about her diagnosis and [...] She see Dr Dr Estephanie Franz at [facility]. No DC needs anticipated. I verified the demographics on the face sheet for the correct address, phone number, emergency contact and PCP information. Brooklyn Whittington RN CM [phone] Lois Pham PA-C - 02/21/2018 9:23 AM CDT Neurosurgery Progress Note Date of service: 02/21/2018 Subjective: Feels sore. Upset she did not have SLITTER OPERATOR overnight. Wants to go smoke. Wants [...] there were a couple of options including SLITTER OPERATOR vs IV pain medications for post op pain control, and rationale for non SLITTER OPERATOR at this time. Did discuss that would not recommend DC as drain still has high output. Upright xrays prior to DC Up with assistance Continue hemovac until <30/shift Soft collar when OOB, PRN in bed for comfort PT/OT Dispo: Anticipate home in next 1-2 days pending drain output Lois Pham PA-C, 02/21/2018, 9:23 AM Neurosurgery [phone] He Reyes MD - 02/20/2018 1:20 PM [address]T Note from Dr. Covarrubias on 02/13/18: ? 1. On the day of surgery please order an Inpatient pain consult 2. Ketamine 5mg/h during surgery ?? Recommendations for opioids: ?? If using a SLITTER OPERATOR: No oral opioids Start a SLITTER OPERATOR pump with Dilaudid continuous IV infusion at a basal rate of 0.1 mg/hr with SLITTER OPERATOR boluses of 0.2-0.4 mg every 10 minutes. ?? If not using a SLITTER OPERATOR: Start dilaudid 2-4mg q3h prn (alternatively [...] PA-C - 02/20/2018 3:[address] [facility] Brief Operative Progress Note Surgery Date: 02/20/2018 Surgeon(s) and Role: * Marky Gonzalez MD - Primary PHYSICIAN ADJUNCT LECTURER-Meka Pham Pre-op Diagnosis: * Cervical spondylosis with [...] The procedure was medically necessary for an personal injury legal assistant because Dr. Gonzalez needed the operative [...] Lois Pham PA-C, 02/20/2018, 3:25 PM Neurosurgery [phone] Marky Gonzalez MD - 02/20/2018 12:00 AM CDT ANGIE BENDER CSN: [id number] OPERATIVE REPORT DATE OF SURGERY: 02/20/2018 : 1965 SURGEON: MARKY GONZALEZ MD ADJUNCT LECTURER: Lois Pham PA-C. PREOPERATIVE DIAGNOSES: 1. Status [...] performing all critical portions. MD YOLANDE COLEMAN/ALESSANDRO /[id number] cc: MARKY GONZALEZ MD documented in this [...] the risk. She has been on these terminologist, desires to eventually come off. She also [...] He Reyes M.D. [facility] [phone] HISTORY OF PRESENT ILLNESS: Per Chart Review: [...] headache Opioid prescriber: Rosetta Martin-LEDY Jerry MD-valium SPORTS ANALYST database review: Risk Factors: History of substance [...] Lois Pham PA-C ??? glucose-ascorbic acid (aka [id number]) chewable tablet 4 Tab 4 Tab Oral [...] TIME SPENT: 70 minutes including 50% time ckko-ol-iqda time counseling her about her diagnosis and treatment options, and coordinating care with the primary team. DECISION-MAKING: The level of decision-making in this case is high/complex due to the complexity of medical problems, acute/chronic pain, opioid analgesia issues, and behavioral factors. documented in this encounter Miscellaneous Notes OR Nursing - Monica Pate RN - 02/20/2018 2:[address] [facility] Progress Note Patient Name: Angie [...] failure. Anatomic alignment. Shoulder prosthesis. Sirisha Maher STOVE MECHANIC, BOX CUTTER RAD GD (ABNORMAL) Complete Blood Count-No Diff (02/22/2018 12:36 PM CDT) P athologist Signature WBC 10.2 4.0 - 11.0 [facility] k/ul HOSPITAL RBC 3.36 (L) 4.0 - 5.2 [facility] M/ul [facility] Hemoglobin 11.1 (L) 12.0 - 16.0 [facility] g/dl HOSPITAL HCT 33.2 (L) 36.0 - 46.0 [facility] MCV 98.8 80 - [address] [facility] MCH 33.0 26 - [address] [facility] MCHC 33.4 32 - 36 [facility] g/dl HOSPITAL RDW 14.4 11.5 - 14.5 [facility]OSPITAL Platelets 183 150 - 450 [facility] k/[facility] MPV 10.6 9.4 - 12.4 [facility] Specimen Anatomical Collection Method Collection Time Receive d Time (Source) Location / / Volume Laterality 02/22/2018 12:36 02/22/2018 PM CDT 12:[address] [facility] - 02/22/2018 12:46 PM C DT Performed at [facility] , [address] [place] [address] Lois Pham PA-C LAB_1 Performing Organization Address City/State/ZIP Code Phon e Number [id number] [place] [address] XR Cervical Spine AP/Lat Upright (02/21/2018 9:50 [...] Organization Address City/State/ZIP Code Phon e Number [address] [address], [facility] [phone] (ABNORMAL) Basic Metabolic Panel (02/21/2018 7:12 AM [...] >60 >60 [facility] Black ml/min/1.7 [facility] 3m2 Specimen Anatomical Collection Method Collection Time Receive d Time (Source) Location / / Volume Laterality 02/21/2018 7:12 AM 8 7:13 [address] [facility] - 02/21/2018 7:47 AM CD T Performed at [facility] , [address] [place] [address] Lois Pham PA-C LAB_1 Performing Organization Address City/State/[place] [address] [address], [facility] (ABNORMAL) Hemogram with Plts (02/21/2018 7:12 AM CDT) athologist Signature WBC 10.0 4.0 - 11.0 [facility] RBC 3.29 (L) 4.0 - 5.2 [facility] Hemoglobin 10.7 (L) 12.0 - 16.0 [facility] g/dl [facility] HCT 32.2 (L) 36.0 - 46.0 [facility] MCV 97.9 80 - 100 [facility] MCH 32.5 26 - [address] [facility] MCHC 33.2 32 - 36 [facility] g/dl [facility] RDW 13.9 11.5 - 14.5 [facility] Platelets 186 150 - 450 [facility] MPV 10.3 9.4 - 12.4 [facility] Specimen Anatomical Collection Method Collection Time Receive d Time (Source) Location / / Volume Laterality 02/21/2018 7:12 AM 8 7:13 CD[address] [facility] - 02/21/2018 7:26 AM CD T Performed at [facility] , [address] [place] [address] Lois Pham PA-C LAB_1 Performing Organization Address City/[facility]/ZIP Code Phon e Number [address] [address], [facility] [phone] Glucose, Whole Blood POC (02/20/2018 11:20 PM CDT) P athologist Signature Glucose, Whole 140 70 - 180 [facility] mg/dl HOSPITAL Comment: Point of Care Testing No Action Required Specimen Anatomical Collection Method Collection Time Receive d Time (Source) Location / / Volume Laterality 02/20/2018 11:20 02/20/2018 PM CDT 11:26 PM CDT Marky Gonzalez MD LAB_1 Performing Organization Address [facility] Phon e Number [address] [address], [place] Glucose, Whole Blood POC (02/20/2018 5:05 [...] Performing Organization Address City/[facility]/ZIP [facility] Phon e Number [address] [address], [place] Glucose, Whole Blood POC (02/20/2018 3:45 [...] Organization Address City/State/ZIP Code Phon e Number [address] [address], [place] [phone] XR C-Arm 0-30 Minutes (02/20/2018 2:05 PM [...] Organization Address City/State/ZIP Code Phon e Number [address] [address], [place] Glucose, Whole Blood POC (02/20/2018 6:25 AM CDT) athologist Signature Glucose, Whole 90 70 - 180 [facility] mg/dl [facility] Specimen Anatomical Collection Method Collection Time Receive d Time (Source) Location / / Volume Laterality 02/20/2018 6:25 AM 8 6:34 CDT AM CDT Marky Gonzalez MD LAB_1 Performing Organization Address City/[facility]/ZIP [facility] Phon e Number [address] [address], [facility] ABO/RH(D) Retype (02/20/2018 6:22 AM CDT) athologist Signature ABO/RH(D) A NEGATIVE [facility] Specimen Anatomical Collection Method Collection Time Receive d Time (Source) Location / / Volume Laterality 02/20/2018 6:22 AM 8 6:[address] [facility] - 02/20/2018 7:06 AM CD T Performed at [facility] , [address] [place] [address] Marky Gonzalez MD LAB_1 Performing Organization Address [facility] Phon e Number [address] [address], [facility] INR/Protime (PT/INR) (02/20/2018 6:08 AM CDT) athologist Signature Protime 13.0 12.0 - 14.5 [facility] INR 1.0 0.9 - 1.1 [facility] Specimen Anatomical Collection Method Collection Time Receive d Time (Source) Location / / Volume Laterality 02/20/2018 6:08 AM 8 6:[address] [facility] - 02/20/2018 6:40 AM CD T Performed at [facility] , [address] [place] [address] Sirisha Maher APRN, BOX CUTTER LAB_1 Performing Organization Address [facility]/ZIP [facility] Phon e Number [address] [address], [facility] [phone] Hemogram with Platelets (02/20/2018 6:08 AM CDT) athologist Signature WBC 6.7 4.0 - 11.0 [facility] k/ul [facility] RBC 4.13 4.0 - 5.2 [facility] M/ul [facility] Hemoglobin 13.5 12.0 - 16.0 [facility] g/dl [facility] HCT 39.8 36.0 - 46.0 [facility] MCV 96.4 80 - [address] [facility] MCH 32.7 26 - [address] [facility] MCHC 33.9 32 - 36 [facility] g/dl HOSPITAL RDW 13.8 11.5 - 14.5 [facility] Platelets 245 150 - 450 [facility] k/[facility] MPV 10.6 9.4 - 12.4 [facility] Specimen Anatomical Collection Method Collection Time Receive d Time (Source) Location / / Volume Laterality 02/20/2018 6:08 AM 8 6:[address] CD[address] [facility] - 02/20/2018 6:32 AM CD T Performed at [facility] , [address] [place] [address] Sirisha Maher APRN, BOX CUTTER LAB_1 Performing Organization Address [facility]/State/[place] [address] (ABNORMAL) Basic Metabolic Panel (02/20/2018 6:08 AM CDT) athologist Signature Sodium 139 136 - 145 [facility] mmol/L [facility] Potassium 4.4 3.5 - 5.1 [facility] mmol/L [facility] Comment: Specimen Slightly Hemolyzed Hemolysis May Affect Result Chloride 109 98 - 109 mmol/L [facility] AL CO2 18 (L) 20 - 29 mmol/L [facility] L Anion Gap (calc.) 12 7 - 16 mmol/L [facility] Glucose 96 70 - 180 mg/dl [facility] L Calcium 9.4 8.4 - 10.2 mg/dl [facility] EHSAN BUN 14 7 - 26 mg/dl [facility] Creatinine 0.69 0.55 - 1.02 mg/dl [facility] HOS PITAL GFR, Estimated >60 >60 ml/min/1.73m2 [facility] GFR, Est., If Black >60 >60 ml/min/1.73m2 [facility] Specimen Anatomical Collection Method Collection Time Receive d Time (Source) Location / / Volume Laterality 02/20/2018 6:08 AM 8 6:[address] [facility] - 02/20/2018 6:52 AM CD T Performed at [facility] , [address] [place] [address] Sirisha Maher APRN BOX CUTTER LAB_1 Performing Organization Address City/[facility] Phon e Number [address] [address], [facility] aPTT (Activated Partial Thromboplastin Time) (02/20/2018 6:08 AM CDT) P athologist Signature PTT 26.8 24.0 - 37.0 [facility] Specimen Anatomical Collection Method Collection Time Receive d Time (Source) Location / / Volume Laterality 02/20/2018 6:08 AM 8 6:[address] [facility] - 02/20/2018 6:40 AM CD T Performed at [facility] , [address] [place] [address] Sirisha Maher APRN, BOX CUTTER LAB_1 Performing Organization Address City/[facility] Phon e Number [address] [address], [facility] ABO Rh & Antibody Screen (Type & Screen) (02/20/2018 6:07 AM CDT) Patholo gist Method Time Signature Crossmatch 02/23/2018 [facility]/RH(D[facility] A NEGATIVE [facility] Antibody Screen NEGATIVE [facility] Specimen Anatomical Collection Method Collection Time Receive d Time (Source) Location / / Volume Laterality 02/20/2018 6:07 AM 8 6:22 CDT AM CDT [facility] - 02/20/2018 7:10 AM CD T Performed at [facility] , [address] [place] [address] Sirisha Maher APRN, CNP LAB_1 Performing Organization Address City/State/ZIP Code Phon e Number [address] [address], [facility] EKG IP (02/20/2018 [...] RN - 02/23/2018 9:[address] [facility] Plan of Care Note Assessment: [...] RN - 02/23/2018 7:[address] [facility] Plan of Care Note Assessment: [...] RN - 02/22/2018 10:[address] [facility] Plan of Care Note Assessment: [...] RN - 02/22/2018 4:[address] [facility]. MD Notified Note Name of MD notified: Ankit Time of MD notification: 1600 hours and 1 minute Reason: Pt.asking for valium now and current order for HS prn. plz review. [id number]. Response: Valium one time dose now and HS prn. Shawn Btucher RN --- End of Report --- Plan of Care - Alec Gifford RN - 02/22/2018 1:[address] [facility] Plan of Care Note Assessment: [...] RN - 02/22/2018 2:[address] [facility] Plan of Care Note Assessment: [...] RN - 02/22/2018 12:[address] [facility] Plan of Care Note Assessment: [...] RN - 02/21/2018 1:[address] [facility] Plan of Care Note Assessment: [...] RN - 02/21/2018 4:[address] [facility]. MD Notified Note Name of MD notified: Neurosurg Time of MD notification: 0400 hours and 55 minutes Reason: [id number]- Pt reporting oral/IV pain meds ineffective. Pt upset, req further intervention. Please advise. Thanks. Response: Discussed w/ neurosurg. To be addressed in AM and PRNs to continue to be administered as able. Anita Lundberg RN --- End of Report --- Plan of Care - Anita Lundberg RN - 02/21/2018 2:[address] [facility] Plan of Care Note Assessment: [...] Level unable to achieve outcome Comments: [facility] Plan of Care Note Assessment: posterior neck pain worst than anterior Plan: IHR, assessment, pain control Subjective: I thought that I was going to be on a dilaudid drip Objective: Pt angry that she was not on a SLITTER OPERATOR pump, Dilaudid PO and IV given [...] PM CDT 50 mcg 25-50 mcg, Intravenous, [id number], Pain, Starting on Tue02/20/18 at 1451, Until [...] Alec Gifford RN) 0743 (Given - Provider: Alce Gifford RN) 0820 (Given - Provider: Marlen [...] mg 1016 (Given - Provider : Alec Giffodr RN) 0540 (Given - Provider: Anita Lundberg [...] Gifford RN) 0744 (Given - Provider: Alec iGfford RN) 0822 (Given - P rovider: Marlen [...] HS
documented in this encounter Care Teams Mechanical Test Technician Relationship Specialty Start Date End Date Jose Holden MD PCP - General Otolaryngology 12/14/17 [address] [place] [address] documented as of this encounter
--- OUTSIDE RECORDS SUMMARY | 2022-09-20 14:03 | XMS_ITS | Encounter Summary ---
:1965 Author Organization [facility] Address [address] [place] [address] Care Team Providers Name Role Phone Jose Holden MD Primary Care Provider [phone] Reason for Visit Reason Comments CONSULT POPC-dos 02-20 w/Dr Gonzalez Encounter Details Date Type Department Care Team Description 02/13/2018 Office Visit [facility] Raul Stover MD cervical region Management [address] without myelopathy or [address] [place], [place] radiculopathy ([place] [address] Dx) [phone] Social History Tobacco Use Types Packs/Day Years [...] some medicines that are opioids: ??? Hydrocodone ([place], Vicodin, Lortab) ??? Oxycodone (OxyContin, Percocet) ??? [...] before you use any other medicines, including oruy-gia-mdzsmhu medicines. Make sure my care team knows [...] team or apharmacist. You can also visit [employer] or [employer] and search medicine disposalto learn about drug disposal. You may also call the Drug Enforcement Administration ([place]) Office of Diversion Control's Registration Call Center at to find an authorized field collector in your community. ??? If your [...] Content Version: 10.9 Custom: HP/PN 6-16 ?? [id number] [employer], [facility]. Setw Covarrubias MD documented in this encounter Progress [...] Sinusitis No past surgical history on file. WOOD BORING MACHINE OPERATOR Review: Allergies: Allergies Allergen Reactions ??? [...] surgery Recommendations for opioids: If using a SLAT BASKET MAKER HELPER MACHINE: No oral opioids Start a SLAT BASKET MAKER HELPER MACHINE pump with Dilaudid continuous IV infusion at a basal rate of 0.1 mg/hr with SLAT BASKET MAKER HELPER MACHINE boluses of 0.2-0.4 mg every 10 minutes. If not using a SLAT BASKET MAKER HELPER MACHINE: Start dilaudid 2-4mg q3h prn (alternatively can [...] myelopathy documented in this encounter Care Teams Manager [employer] Relationship Specialty Start Date End Date Jose Holden MD PCP - General Otolaryngology 12/14/17 [facility] [place] [address] documented as of this encounter
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
--- OUTSIDE RECORDS SUMMARY | 2022-09-20 14:03 | XMS_ITS | Encounter Summary ---
:1965 [facility] Address [address], [place] [address] Care Team Providers Name Role Phone Jose Holden MD Primary Care Provider [phone] Reason for Visit Auth/Cert Specialty Diagnoses [...] Expiration Date Visits Requ ested Visits Authorized [id number] 1 1 Encounter Details Date Type Department Care Team Description 02/20/2018 [facility] Pete Gonzalez MD [address] [place] [address] [place] [address] [phone] (Wo rk) Social History Tobacco Use Types [...] 2:06 PM CDT Fluoroscopy provided by a medical transcription radiology. Exact fluoroscopy time is documented in end of exam information in EPIC Pete Gonzalez MD RAD GD documented in this encounter Visit Diagnoses Not on filedocumented in this encounter Care Teams Manager Brand Relationship Specialty Start Date End Date Jose Holden MD PCP - General Otolaryngology 12/14/[address] [place], [place] [address] [address] documented as of this encounter
--- OUTSIDE RECORDS SUMMARY | 2022-09-20 14:03 | XMS_ITS | Encounter Summary ---
:1965 Author Organization [facility] Address [address], [place] [address] Care Team Providers Name Role Phone Jose Holden MD Primary Care Provider [phone] Reason for Visit Auth/Cert Specialty Diagnoses / [...] Expiration Date Visits Requ ested Visits Authorized [id number] 1 1 Encounter Details Date Type Department Care Team Description 02/20/2018 Surgery RH Operating Room Marky Gonzalez MD FUSION POSTERIOR [address] [place] [address] [place] C2-T3, REMOVAL HARDWARE [phone] [id number] SPINE Anterior plate [phone] (Wo rk) and Posterior screws and rods [...] encounter Discharge Summaries Sneha Maher, Sirisha Celaya, PUBLIC HEALTH SERVICE OFFICER, ANATOMY AND PHYSIOLOGY INSTRUCTOR - 02/23/2018 9:09 AM CDT Neurosurgery Discharge [...] Hospital Course: Angie Bender was admitted to [facility] on 02/20/2018 following posterior C2-T3 [...] 9.4 - 12.4 fl Narrative Performed at [facility], [address] [place] [address] Physical Exam: BP 124/78 Pulse 74 Temp [...] T1. 3. Intraoperative placement and removal of Taylor-Path101 tongs. 4. Hardware removal, C6-T1 posterior. 5. [...] in strength to your extremeties. Neurosurgery clinic [phone]. If it is after hours, please call [...] neurosurgery RN on 03/07 at 11AM at [address] [place] [address], 2nd floor. 2. Follow up with Dr. Gonzalez/Lois Pham PA-C/Sirisha Maher NP on 04/05 at 1:00PM at [address] [place] [address]. Patient also instructed to call clinic at [phone] or [facility] for any questions or concerns. Patient verbalizes understanding and states no further questions at this time. 3. Follow up with PCP for any medical issues Total time spent at the time of discharge was 30 minutes Sirisha Maher APRN, KALPANA Pgr#[phone] documented in this encounter Discharge Instructions Discharge InstructionsDonna Ellis RN - 02/23/2018 10:42 AM CDT [place] [address] General Information Discharging physician: Dr. Gonzalez [facility] Emergency & Urgently Needed Care: For emergencies call 911 and/or get medical help right away. If you are a [facility] member and have medical needs after clinic hours you may call the CareLineat [phone] or . Fall Prevention Recommendations ??? Follow [...] Ellis RN - 02/23/2018 11:50 AM CDT [facility] Discharge Note - Nursing Admission Date/Time: [...] End of Report --- Sirisha Rankin APRN, ANATOMY AND PHYSIOLOGY INSTRUCTOR - 02/23/2018 9:02 AM CDT Neurosurgery Progress [...] including C3- T1 posterior fusion (done in [place] approx 6 years ago), with C6-T1 pseudoarthrosis, [...] Dc home today ?? Sirisha Maher APRN, ANATOMY AND PHYSIOLOGY INSTRUCTOR 02/23/2018, 9:02 AM Neurosurgery Pgr#[phone] Jolene Kaur PA-C - 02/22/2018 12:45 PM [...] including C3- T1 posterior fusion (done in [place] approx 6 years ago), with C6-T1 pseudoarthrosis, [...] Lois Pham PA-C, 02/22/2018, 9:05 AM Neurosurgery [phone] He Reyes MD - 02/22/2018 8:29 AM [...] with any questionsor concerns. He Reyes M.D. [facility] Pain Management [phone] INTERVAL HISTORY: She started tizanidine last night [...] mg 450 mg Oral At Bedtime Beryl aCpps 450 mg at 02/21/188 ??? prochlorperazine (COMPAZINE) [...] 02/22/18 0743 Current Outpatient Prescriptions Ordered in [facility] Medication Sig Dispense Refill ??? sennosides-docusate [...] TIME SPENT: 35 minutes including 50% time [id number]-wu-gzdf time counseling her about her diagnosis and treatment options, and coordinating care with the primary team. DECISION-MAKING: The level of decision-making in this case is high/complex due to the complexity of medical problems, acute/chronic pain, opioid analgesia issues, and behavioral factors. He Reyes M.D. Brooklyn Whittington - 02/21/2018 1:47 PM CDT [facility] Care Management Screening Admission Info: Cognitive [...] Estephanie Franz at [facility]. No DC needs anticipated. I verified the demographics on the face sheet for the correct address, phone number, emergency contact and PCP information. Brooklyn Whittington RN CM [phone] Lois Pham PA-C - 02/21/2018 9:23 AM CDT Neurosurgery Progress Note Date of service: 02/21/2018 Subjective: Feels sore. Upset she did not have FOOT ROENTGENOLOGIST overnight. Wants to go smoke. Wants to [...] including C3- T1 posterior fusion (done in [place] approx 6 years ago), with C6-T1 pseudoarthrosis, [...] there were a couple of options including FOOT ROENTGENOLOGIST vs IV pain medications for post op pain control, and rationale for non FOOT ROENTGENOLOGIST at this time. Did discuss that would not recommend DC as drain still has high output. Upright xrays prior to DC Up with assistance Continue hemovac until <30/shift Soft collar when OOB, PRN in bed for comfort PT/OT Dispo: Anticipate home in next 1-2 days pending drain output Lois Pham PA-C, 02/21/2018, 9:23 AM Neurosurgery [phone] He Reyes MD - 02/20/2018 1:20 PM [address] Note from Dr. Covarrubias on 02/13/18: ? 1. On the day of surgery please order an Inpatient pain consult 2. Ketamine 5mg/h during surgery ?? Recommendations for opioids: ?? If using a FOOT ROENTGENOLOGIST: No oral opioids Start a FOOT ROENTGENOLOGIST pump with Dilaudid continuous IV infusion at a basal rate of 0.1 mg/hr with FOOT ROENTGENOLOGIST boluses of 0.2-0.4 mg every 10 minutes. ?? If not using a FOOT ROENTGENOLOGIST: Start dilaudid 2-4mg q3h prn (alternatively can [...] Pham PA-C - 02/20/2018 3:24 PM CDT [facility] Brief Operative Progress Note Surgery Date: 02/20/2018 Surgeon(s) and Role: * Marky Gonzalez MD - Primary PHYSICIAN CORPORATE RECRUITER-Meka Pham Pre-op Diagnosis: * Cervical spondylosis with [...] The procedure was medically necessary for an mail handler assistant because Dr. Gonzalez needed the operative [...] Lois Pham PA-C, 02/20/2018, 3:25 PM Neurosurgery [phone] Marky Gonzalez MD - 02/20/2018 12:00 AM CDT ANGIE BENDER [facility]: [phone] OPERATIVE REPORT DATE OF SURGERY: 02/20/2018 : 1965 SURGEON: MARKY GONZALEZ MD CORPORATE RECRUITER: Lois Pham PA-C. PREOPERATIVE DIAGNOSES: 1. Status [...] stepwise fashion using absorbable suture. We placed Taylor-Path101 tongs and then flipped the patient prone [...] all critical portions. MARKY GONZALEZ MD MMK/MODL /[id number] cc: MARKY GONZALEZ MD documented in this [...] the risk. 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 She also [...] bone health. ASSESSMENT AND RECOMMENDATIONS DISCUSSED WITH: Losi with neurosurgery Thank you for consulting the Inpatient Pain Management Service. Please contact me with any questionsor concerns. He Reyes M.D. [facility] Pain Management [phone] HISTORY OF PRESENT ILLNESS: Per Chart Review: [...] - headache Opioid prescriber: LEDY Ojeda MD-valium [facility] database review: Risk Factors: History of [...] CURRENT MEDICATIONS: Current Facility-Administered Medications Ordered in [facility] Medication Dose Route Frequency Provider Last [...] Lois Pham PA-C ??? glucose-ascorbic acid (aka [id number]) chewable tablet 4 Tab 4 Tab Oral [...] mg 10 mg Intravenous Q6H PRN Lois Phma PA-C ??? sennosides-docusate sodium (SENNA-S,SENNA PLUS) 8.6-50 MG per tablet 2 Tab 2 Tab Oral BID Lois Phma PA-C 2 Tab at 02/21/18738 ??? sodium [...] TIME SPENT: 70 minutes including 50% time [id number]-sz-[id number] time counseling her about her diagnosis and treatment options, and coordinating care with the primary team. DECISION-MAKING: The level of decision-making in this case is high/complex due to the complexity of medical problems, acute/chronic pain, opioid analgesia issues, and behavioral factors. documented in this encounter Miscellaneous Notes OR Nursing - Monica Pate, RN - 02/20/2018 2:49 PM CDT [facility] Progress Note Patient Name: Angie Bender [...] failure. Anatomic alignment. Shoulder prosthesis. Sirisha Maher PUBLIC HEALTH SERVICE OFFICER, ANATOMY AND PHYSIOLOGY INSTRUCTOR RAD GD (ABNORMAL) Complete Blood Count-No Diff (02/22/2018 12:36 PM CDT) athologist Signature WBC 10.2 4.0 - 11.0 [facility] RBC 3.36 (L) 4.0 - 5.2 [facility] Hemoglobin 11.1 (L) 12.0 - 16.0 [facility] g/dl [facility] HCT 33.2 (L) 36.0 - 46.0 [facility] MCV 98.8 80 - 100 fl [facility] MCH 33.0 26 - 34 pg [facility] MCHC 33.4 32 - 36 [facility] g/dl [facility] RDW 14.4 11.5 - 14.5 [facility] Platelets 183 150 - 450 [facility] MPV 10.6 9.4 - 12.4 [facility] Specimen Anatomical Collection Method Collection Time Receive d Time (Source) Location / / Volume Laterality 02/22/2018 12:36 02/22/2018 PM CDT 12:37 PM CDT Narrative [facility] - 02/22/2018 12:46 PM C DT Performed at [facility] , [address] [place] [address] Lois Pham PA-C LAB_1 Performing Organization Address City/State/ZIP Code Phon e Number [facility] [address] [place] [address] [address], [facility] XR Cervical Spine AP/Lat Upright (02/21/2018 9:50 [...] Marky Gonzalez MD LAB_1 Performing Organization Address City/[facility] Phon e Number [address] [address] [place] [address], [facility] [phone] (ABNORMAL) Basic Metabolic Panel (02/21/2018 7:12 AM [...] Est., If >60 >60 [facility] Black ml/min/1.7 [facility] 3m2 Specimen Anatomical Collection Method Collection Time Receive d Time (Source) Location / / Volume Laterality 02/21/2018 7:12 AM 8 7:13 CDT AM CDT Narrative [facility] - 02/21/2018 7:47 AM CD T Performed at [facility] , [address] [place] [address] Lois Pham PA-C LAB_1 Performing Organization Address [facility]/ZIP [facility] Phon e Number [address] [address] [place] [address], [facility] [phone] (ABNORMAL) Hemogram with Plts (02/21/2018 7:12 AM CDT) athologist Signature WBC 10.0 4.0 - 11.0 [facility] RBC 3.29 (L) 4.0 - 5.2 [facility] Hemoglobin 10.7 (L) 12.0 - 16.0 [facility] g/dl HOSPITAL HCT 32.2 (L) 36.0 - 46.0 [facility] MCV 97.9 80 - 100 fl [facility] MCH 32.5 26 - 34 pg [facility] MCHC 33.2 32 - 36 [facility] g/dl HOSPITAL RDW 13.9 11.5 - 14.5 [facility] Platelets 186 150 - 450 [facility] MPV 10.3 9.4 - 12.4 [facility] Specimen Anatomical Collection Method Collection Time Receive d Time (Source) Location / / Volume Laterality 02/21/2018 7:12 AM 8 7:13 CDT AM CDT Narrative [facility] - 02/21/2018 7:26 AM CD T Performed at [facility] , [address] [place] [address] Lois Pham PA-C LAB_1 Performing Organization Address City/[facility] Phon e Number [address] [address], [facility] [phone] Glucose, Whole Blood POC (02/20/2018 11:20 PM CDT) athologist Signature Glucose, Whole 140 70 - 180 [facility] Blood mg/dl [facility] Comment: Point of Care Testing No Action Required Specimen Anatomical Collection Method Collection Time Receive d Time (Source) Location / / Volume Laterality 02/20/2018 11:20 02/20/2018 PM CDT 11:26 PM CDT Marky Gonzalez MD LAB_1 Performing Organization Address City/[facility] Phon e Number [address] [address], [facility] Glucose, Whole Blood POC (02/20/2018 5:05 PM CDT) athologist Signature Glucose, Whole 145 70 - 180 [facility] Blood mg/dl [facility] Comment: Point of Care Testing No Action Required Specimen Anatomical Collection Method Collection Time Receive d Time (Source) Location / / Volume Laterality 02/20/2018 5:05 PM 8 5:25 CDT PM CDT Marky Gonzalez MD LAB_1 Performing Organization Address City/State/ZIP Code Phon e Number [address] [address], [facility] [phone] Glucose, Whole Blood POC (02/20/2018 3:45 PM CDT) athologist Signature Glucose, Whole 145 70 - 180 [facility] Blood mg/dl [facility]OS[facility]ITAL Comment: Point of Care Testing No Action Required Specimen Anatomical Collection Method Collection Time Receive d Time (Source) Location / / Volume Laterality 02/20/2018 3:45 PM 8 3:52 CDT PM CDT Marky Gonzalez MD LAB_1 Performing Organization Address City/[facility]/ZIP Code Phon e Number [address] [address], [facility] XR C-Arm 0-30 Minutes (02/20/2018 2:05 PM CDT) Anatomical Region Laterality Modality Other Specimen (Source) Anatomical Location Collection Method / Collectio n Time Received Time / Laterality Volume Narrative 02/20/2018 2:06 PM CDT Fluoroscopy provided by a vascular ultrasound technologist. Exact fluoroscopy time is documented in end of exam information in EPIC Marky Gonzalez MD RAD GD XR C-Arm 2.5-3 Hours (02/20/2018 12:45 PM CDT) Anatomical Region Laterality Modality Other Specimen (Source) Anatomical Location Collection Method / Collectio n Time Received Time / Laterality Volume Narrative 02/20/2018 12:45 PM CDT Fluoroscopy provided by a vascular ultrasound technologist. Exact fluoroscopy time is documented in end of exam information in EPIC Marky Gonzalez MD RAD GD XR C-Arm 30-59 Minutes (02/20/2018 12:36 PM CDT) Anatomical Region Laterality Modality Other Specimen (Source) Anatomical Location Collection Method / Collectio n Time Received Time / Laterality Volume Narrative 02/20/2018 12:36 PM CDT Fluoroscopy provided by a vascular ultrasound technologist. Exact fluoroscopy time is documented in end of exam information in EPIC Marky Gonzalez MD RAD GD Glucose, Whole Blood POC (02/20/2018 9:02 AM CDT) athologist Signature Glucose, Whole 135 70 - 180 [facility] Blood mg/dl [facility] Comment: Point of Care Testing RN Notified Specimen Anatomical Collection Method Collection Time Receive d Time (Source) Location / / Volume Laterality 02/20/2018 9:02 AM 8 9:08 CDT AM CDT Marky Gonzlaez MD LAB_1 Performing Organization Address City/[facility]/ZIP Code Phon e Number [address] [address] [place] [address], [facility] [phone] Glucose, Whole Blood POC (02/20/2018 6:25 AM CDT) athologist Signature Glucose, Whole 90 70 - 180 [facility] Blood mg/dl [facility] Specimen Anatomical Collection Method Collection Time Receive d Time (Source) Location / / Volume Laterality 02/20/2018 6:25 AM 8 6:34 CDT AM CDT Marky Gonzalez MD LAB_1 Performing Organization Address City/[facility]/ZIP Code Phon e Number [address] [address], [facility] ABO/RH(D) Retype (02/20/2018 6:22 AM CDT) athologist Signature ABO/RH(D) A NEGATIVE [facility] Specimen Anatomical Collection Method Collection Time Receive d Time (Source) Location / / Volume Laterality 02/20/2018 6:22 AM 8 6:25 CDT AM CDT Narrative [facility] - 02/20/2018 7:06 AM CD T Performed at [facility] , [address] [place] [address] Marky Gonzalez MD LAB_1 Performing Organization Address City/[facility]/ZIP Code Phon e Number [address] [address], [facility] [phone] INR/Protime (PT/INR) (02/20/2018 6:08 AM CDT) P athologist Signature Protime 13.0 12.0 - 14.5 [facility] INR 1.0 0.9 - 1.1 [facility] Specimen Anatomical Collection Method Collection Time Receive d Time (Source) Location / / Volume Laterality 02/20/2018 6:08 AM 8 6:22 CDT AM CDT Narrative [facility] - 02/20/2018 6:40 AM CD T Performed at [facility] , [address] [place] [address] Sirisha Maher APRN, CNP LAB_1 Performing Organization Address City/[facility] Phon e Number [address] [address] [place] [address], [facility] Hemogram with Platelets (02/20/2018 6:08 AM CDT) P athologist Signature WBC 6.7 4.0 - 11.0 [facility] RBC 4.13 4.0 - 5.2 [facility] Hemoglobin 13.5 12.0 - 16.0 [facility] gdl [facility] HCT 39.8 36.0 - 46.0 [facility] MCV 96.4 80 - 100 [facility] MCH 32.7 26 - 34 pg [facility] MCHC 33.9 32 - 36 [facility] RDW 13.8 11.5 - 14.5 [facility] Platelets 245 150 - 450 [facility] MPV 10.6 9.4 - 12.4 [facility] Specimen Anatomical Collection Method Collection Time Receive d Time (Source) Location / / Volume Laterality 02/20/2018 6:08 AM 8 6:22 CDT AM CDT Narrative [facility] - 02/20/2018 6:32 AM CD T Performed at [facility] , [address] [place] [address] Sirisha Maher APRN, ANATOMY AND PHYSIOLOGY INSTRUCTOR LAB_1 Performing Organization Address City/[facility]/ZIP [facility] Phon e Number [address] [address], [facility] [phone] (ABNORMAL) Basic Metabolic Panel (02/20/2018 6:08 AM CDT) athologist Signature Sodium 139 136 - 145 [facility] mmol/L [facility] Potassium 4.4 3.5 - 5.1 [facility] mmol/L [facility]OSPITAL Comment: Specimen Slightly Hemolyzed Hemolysis May Affect Result Chloride 109 98 - 109 mmol/L [facility] AL CO2 18 (L) 20 - 29 mmol/L [facility] L Anion Gap (calc.) 12 7 - 16 mmol/L [facility] Glucose 96 70 - 180 mg/dl [facility] L Calcium 9.4 8.4 - 10.2 mg/dl [facility] EHSAN BUN 14 7 - 26 mg/dl [facility] Creatinine 0.69 0.55 - 1.02 mg/dl [facility] GFR, Estimated >60 >60 ml/min/1.73m2 [facility] GFR, Est., If Black >60 >60 ml/min/1.73m2 [facility] Specimen Anatomical Collection Method Collection Time Receive d Time (Source) Location / / Volume Laterality 02/20/2018 6:08 AM 8 6:22 CDT AM CDT [facility] - 02/20/2018 6:52 AM CD T Performed at [facility] , [address] [place] [address] Sirisha Maher APRN, ANATOMY AND PHYSIOLOGY INSTRUCTOR LAB_1 Performing Organization Address City/State/ZIP Code Phon e Number [address] [address], [facility] aPTT (Activated Partial Thromboplastin Time) (02/20/2018 6:08 AM CDT) athologist Signature PTT 26.8 24.0 - 37.0 [facility] sec [facility] Specimen Anatomical Collection Method Collection Time Receive d Time (Source) Location / / Volume Laterality 02/20/2018 6:08 AM 8 6:22 CDT AM CDT [facility] - 02/20/2018 6:40 AM CD T Performed at [facility] , [address] [place] [address] Sirisha Maher APRN, ANATOMY AND PHYSIOLOGY INSTRUCTOR LAB_1 Performing Organization Address City/[facility]/ZIP Code Phon e Number [address] [address], [facility] ABO Rh & Antibody Screen (Type & Screen) (02/20/2018 6:07 AM CDT) [facility] gist Method Time Signature Crossmatch 02/23/2018 [facility] HOSPITAL ABO/RH(D) A NEGATIVE [facility] Antibody Screen NEGATIVE [facility] Specimen Anatomical Collection Method Collection Time Receive d Time (Source) Location / / Volume Laterality 02/20/2018 6:07 AM 8 6:22 CDT AM CDT Narrative [facility] - 02/20/2018 7:10 AM CD T Performed at [facility] , [address] [place] [address] Sirisha Maher APRN, KALPANA LAB_1 Performing Organization Address City/[facility] Phon e Number [address] [address], [facility] EKG IP (02/20/2018 12:00 AM CDT) Specimen (Source) Anatomical Location Collection Method / Collectio n Time Received Time / Laterality Volume 02/20/2018 Narrative This result has an attachment that is no t available. Provider [facility] EKG documented in this encounter Visit [...] s pine ([facility]) Cervical spondylosis with radiculopathy ([facility]) Cervical spondylosis with myelopathy Plan of Care - Marlen Segura RN - 02/23/2018 9:57 AM CDT [facility] Plan of Care Note Assessment: Incisions [...] Carbajal RN - 02/23/2018 7:43 AM CDT [facility] Plan of Care Note Assessment: pain [...] Rico RN - 02/22/2018 10:15 PM CDT [facility] Plan of Care Note Assessment: comfort [...] Rico RN - 02/22/2018 4:00 PM CDT [facility]. MD Notified Note Name of MD notified: Ankit Time of MD notification: 1600 hours and 1 minute Reason: Pt.asking for valium now and current order for HS prn. plz review. [id number]. Response: Valium one time dose now and HS prn. Shawn Butcher RN --- End of Report --- Plan of Care - Alec Gifford RN - 02/22/2018 1:57 PM CDT [facility] Plan of Care Note Assessment: pain [...] Lundberg RN - 02/22/2018 2:32 AM CDT [facility] Plan of Care Note Assessment: Pain [...] Orellana RN - 02/22/2018 12:33 AM CDT [facility] Plan of Care Note Assessment: Pain [...] Gifford RN - 02/21/2018 1:41 PM CDT [facility] Plan of Care Note Assessment: pain [...] Lundberg RN - 02/21/2018 4:56 AM CDT [facility]. MD Notified Note Name of MD notified: Neurosurg Time of MD notification: 0400 hours and 55 minutes Reason: [id number]- Pt reporting oral/IV pain meds ineffective. Pt upset, req further intervention. Please advise. Thanks. Response: Discussed w/ neurosurg. To be addressed in AM and PRNs to continue to be administered as able. Anita Lundberg RN --- End of Report --- Plan of Care - Anita Lundberg RN - 02/21/2018 2:26 AM CDT [facility] Plan of Care Note Assessment: Pain [...] and Signs and Symptoms Outcome: Progressing 02/20/18 0626 Pain, Acute Related Risk Factors (Acute Pain) surgery;procedure/treatment;persistent pain;disease process Signs and Symptoms (Acute Pain) alteration in muscle tone;sleep pattern alteration;verbalization of pain descriptors;questions meaning of pain;pacing/restlessness Goal: Acceptable Pain Control/Comfort Level 02/20/18 2356 Pain, Acute (Adult) Acceptable Pain Control/Comfort Level unable to achieve outcome Comments: [facility] Plan of Care Note Assessment: posterior neck pain worst than anterior Plan: IHR, assessment, pain control Subjective: I thought that I was going to be on a dilaudid drip Objective: Pt angry that she was not on a FOOT ROENTGENOLOGIST pump, Dilaudid PO and IV given q3h, [...] 10:32 AM CDT 2 Patches lidocaine-epinephrine 1 %-1:[id number] injec tion Given 02/20/2018 10:21 AM CDT [...] Gifford RN) 0820 (Given - Provider: Marlen Seguar, RADHA) 0.8 mg, Oral, DAILY, First dose [...] Provider: Alec Gifford RN)1715 (Given - Provider: Shanw Patton, RADHA) 0000 (Canceled Entry - Provider: [...] Anita bunch RN)0540 (Given - Provider: Anita uLndberg [phone] (Given - Provider: Alec Gifford, RN)[phone] [...] HS
documented in this encounter Care Teams Modeling Agent Relationship Specialty Start Date End Date Jose Holden MD PCP - General Otolaryngology 12/14/[address] [place] [address] documented as of this encounter
--- OUTSIDE RECORDS SUMMARY | 2022-09-20 14:03 | XMS_ITS | Encounter Summary ---
:1965 Author [facility] Address [address], [place] [address] Care Team Providers Name Role Phone Jose Holden MD Primary Care Provider [phone] Reason for Visit Auth/Cert Specialty Diagnoses / [...] Expiration Date Visits Requ ested Visits Authorized [id number] 1 1 Encounter Details Date Type Department Care Team Description 02/21/2018 [facility] Pete Gonzalez MD [address] [place] [address] [place] [address] [phone] (Wo rk) Social History Tobacco Use Types [...] filedocumented in this encounter Care Teams Maintenance Journeyman Relationship Specialty Start Date End Date Jose Holden MD PCP - General Otolaryngology 12/14/[address] [place] [address] documented as of this encounter
--- OUTSIDE RECORDS SUMMARY | 2022-09-20 14:03 | XMS_ITS | Encounter Summary ---
:1965 Author Organization [facility] Address [address] [place] [address] Care Team Providers Name Role Phone Jose Holden MD Primary Care Provider [phone] Encounter Details Date Type Department Care Team Description 02/07/2018 Prep for Surgery [facility] Sneha Maher, Neuro[facility] Center Sirisha L, APR N, SENIOR WRITER Neurosurgery/Ortho [place] [address] [place] [address] [place] [address] [phone] Social History Tobacco Use Types Packs/Day Years [...] on filedocumented in this encounter Care Teams Mine Safety Engineer Relationship Specialty Start Date End Date Jose Holden MD PCP - General Otolaryngology 12/14/[address] [place] [address] documented as of this encounter
--- OUTSIDE RECORDS SUMMARY | 2022-09-20 14:03 | XMS_ITS | Encounter Summary ---
:1965 Author Organization [facility] Address [address] [place] [address] Care Team Providers Name Role Phone Jose Holden MD Primary Care Provider [phone] Encounter Details Date Type Department Care Team Description 02/14/2018 [facility] Chava Simon, RN [place] Neurosurgery/ Ortho Spine [address] [place] [address] Social History Tobacco Use Types Packs/Day [...] if we have received her preop yet. Yarn Texturing Machine Operator relayed we have not. Patient was given [phone] to have preop be faxed to us. Patient states she already talked to them and they said they already sent it but she will reach out to them again. Will await a return call from patient/watch out for fax. Michael Cruz 02/14/2018, 10:06 AM Chava Simon RN - 02/14/2018 9:11 AM CDT I still have not received patient's preop from [facility]. Could you please call patient and make sure she has had it faxed to us? Chava Simon RN 02/14/2018, 9:11 AM documented in this encounter Plan of Treatment Not on filedocumented as of this encounter Visit Diagnoses Not on filedocumented in this encounter Care Teams Biomedical Engineering Technician Relationship Specialty Start Date End Date Jose Holden MD PCP - General Otolaryngology 12/14/[address] [facility] [place] [address] documented as of this encounter
--- OUTSIDE RECORDS SUMMARY | 2022-09-20 14:04 | XMS_ITS | Encounter Summary ---
:1965 Author Organization [facility] Address [address] [place] [address] Care Team Providers Name Role Phone Elsewhere, Pcp Primary Care Provider Unavailable Reason for Referral Outpatient (Routine) - Authorized Specialty Diagnoses / Procedures Referred By Contact Refer red To Contact Diagnoses Pain Shoulder Left Alfredo Herrera O.P.A.-C. [facility] Procedures DX Shoulder Left 2+ Views 200 [place], [place] [phone] Referral ID Status Reason Start Date Expiration Date Visits V isits Requested Authorized [id number] Authorized 08/09/2022 08/09/2023 1 1 Reason for Visit Reason Comments Return Visit Encounter Details Date Type Department Care Team Description 08/09/2022 Clinical Communication Department of Cyrus Polk Visit Orthopedic Surgery in [place], [place] [address] [place] [address] 200 [place] [phone] Social History Tobacco Use Types Packs/Day Years [...] 05/17/2022 organizations such as christianity groups, unions, [employer]ized [employer] or athletic groups, or school groups? [...] documented as of this encounter Care Teams Tar Leveler Relationship Specialty Start Date End Date Elsewhere, Pcp PCP - General Family Medicine 12/25/21 documented as of this encounter
--- OUTSIDE RECORDS SUMMARY | 2022-09-20 14:04 | XMS_ITS | Encounter Summary ---
:1965 Author Organization [facility] Address [address] [place] [address] Care Team Providers Name Role Phone Unassigned, Provider Primary Care Provider Unavailable Encounter Details Date Type Department Care Team Description 01/17/2006 [facility] Curtis Antoine Op Report-Archive [address] StreetBritton García [place] [address] [address] [place] [phone] [place] [address] Social History Tobacco Use Types Packs/Day Years Used Date Smoking Tobacco: Never Assessed Sex Assigned at Date Recorded Not on file documented as of this encounter Plan of Treatment Not on filedocumented as of this encounter Visit Diagnoses Not on filedocumented in this encounter Care Teams Splash Line Operator Relationship Specialty Start Date End Date Unassigned, Provider PCP - General 08/05/03 12/13/17 [address] [place] [address] documented as of this encounter
--- OUTSIDE RECORDS SUMMARY | 2022-09-20 14:04 | XMS_ITS | Encounter Summary ---
:1965 Author Organization [facility] Address [address] [place] [address] Care Team Providers Name Role Phone Elsewhere, Pcp Primary Care Provider Unavailable Reason for Visit Reason Onset Date Comments Left Without Being Seen 07/22/2022 Physical Therapy (Routine) - Authorized Specialty Diagnoses / Procedures Referred By Contact Refer red To Contact Diagnoses Aftercare Total Shoulder Arthroplasty Flavia Broderick M.D. [facility] Procedures PT or OT eval and treat (first available) Referral ID Status Reason Start Date Expiration Date Visits V isits Requested Authorized [id number] Authorized 06/23/2022 06/23/2023 99 99 Encounter Details Date Type Department Care Team Description 06/29/2022 Comprehensive Visit Department of Physical Juaquin Broderick M.D. Procedure And Treatment Not Carried Out Due To Patient Leaving Prior To Being Seen By Health Care Provider (Primary Dx); Medicine and Jessie Faye M.S., O.T. [address] [place] [phone] Aftercare Total Shoulder Arthroplasty Rehabilitation in [place], [place] [address] [place] [address] Social History Tobacco Use Types Packs/Day Years [...] 05/17/2022 organizations such as christian groups, unions, [employer] or athletic groups, or school groups? How [...] X-ray and Dr. Polk. Patient arrived at [place] [address] des and was rescheduled. documented in this [...] documented as of this encounter Care Teams Selenium Plant Operator Relationship Specialty Start Date End Date Elsewhere, Pcp PCP - General Family Medicine 12/25/21 documented as of this encounter
--- OUTSIDE RECORDS SUMMARY | 2022-09-20 14:04 | XMS_ITS | Encounter Summary ---
:1965 Author Organization [facility] Address [address] [place] [address] Care Team Providers Name Role Phone Unassigned, Provider Primary Care Provider Unavailable Encounter Details Date Type Department Care Team Description 11/04/2005 [facility] Curtis Antoine Op Report-Archive [address] StreetBritton García [place] [address] [facility] [phone] [place] [address] Social History Tobacco Use Types Packs/Day Years Used Date Smoking Tobacco: Never Assessed Sex Assigned at Date Recorded Not on file documented as of this encounter Plan of Treatment Not on filedocumented as of this encounter Visit Diagnoses Not on filedocumented in this encounter Care Teams Hides And Skins Colorer Relationship Specialty Start Date End Date Unassigned, Provider PCP - General 08/05/03 12/13/17 [address] [place] [address] documented as of this encounter
--- OUTSIDE RECORDS SUMMARY | 2022-09-20 14:04 | XMS_ITS | Encounter Summary ---
:1965 Author Organization [facility] Address [address], [place] [address] Care Team Providers Name Role Phone Jose Holden MD Primary Care Provider [phone] Reason for Visit Reason Comments QUESTIONS, GENERAL Encounter Details Date Type Department Care Team Description 01/19/2018 Telephone [facility] Pete Gonzalez MD QUESTIONS, GENERAL Neuroscience Center [address] [facility] PATT LY Neurosurgery/Ortho [place], [place] [address] [address] [place] [address] [phone] Social History Tobacco Use Types Packs/Day Years [...] of MRI was received via mail from [facility]. CD given to RN KMASON SUPERVISOR Chava Simon RN - 01/19/2018 12:00 PM CST Patient states she will bring the MRI CD hopefully tomorrow 01/20/2018. Chava Simon RN 01/19/2018, 12:01 PM KMASON SUPERVISOR Gi De La Vega - 01/19/2018 11:47 AM CST Patient calling to speak to RN. Would like to speak to him regarding an MRI CD? Please call her at [phone]. KMASON SUPERVISOR documented in this encounter Plan of Treatment Not on filedocumented as of this encounter Visit Diagnoses Not on filedocumented in this encounter Care Teams Hop Picker Relationship Specialty Start Date End Date Jose Holden MD PCP - General Otolaryngology 12/14/17 [facility] [place] [address] documented as of this encounter
--- OUTSIDE RECORDS SUMMARY | 2022-09-20 14:04 | XMS_ITS | Encounter Summary ---
:1965 Author Organization [facility] Address [address], [place] [address] Care Team Providers Name Role Phone Jose Holden MD Primary Care Provider [phone] Encounter Details Date Type Department Care Team Description 12/02/2017 Orders Only External to Pete Gonzalez MD [address] [place], [place] [address] (Wo rk) Social History Tobacco Use Types [...] 12:00 AM Resul ts for this FAMILY AND CONSUMER EDUCATION TEACHER procedure are i n the results section. documented in this encounter Results MRI SPINE--SCAN (12/02/2017 12:00 AM FAMILY AND CONSUMER EDUCATION TEACHER) Anatomical Region Laterality Modality Other Specimen (Source) Anatomical Location Collection Method / Collectio n Time Received Time / Laterality Volume 12/02/2017 Narrative This result has an attachment that is no t available. Pete Gonzalez MD DUMMY/OTHER/AR documented in this encounter Visit Diagnoses Not on filedocumented in this encounter Care Teams Right Of Way Appraiser Relationship Specialty Start Date End Date Jose Holden MD PCP - General Otolaryngology 12/14/17 [address] [place], [place] [address] documented as of this encounter
--- OUTSIDE RECORDS SUMMARY | 2022-09-20 14:04 | XMS_ITS | Encounter Summary ---
:1965 Author Organization [facility] Address [address] [place] [address] Care Team Providers Name Role Phone Jose Holden MD Primary Care Provider [phone] Reason for Visit Reason Comments Other Encounter Details Date Type Department Care Team Description 01/17/2018 [facility] Chava Simon RN Other Center Neurosurgery/ Ortho Spine [address] [place] [address]. [place] [address] Social History Tobacco Use Types [...] AM CST XR printed for patient to continuous pickling line pickler when she comes to clinic. Chava Simon RN 01/18/2018, 8:42 AM ER TENDER Michael Cruz - 01/17/2018 3:46 PM CST Patient called in stating she will drop off her CD in clinic tomorrow. However she wants to make sure RADHA Bowie also has a copy of her neck pictures ready for her as well. Patient states she had alreadyspoken to RADHA Bowie about this. Please advise Michael Cruz 01/17/2018, 3:47 PM ER TENDER documented in this encounter Plan of Treatment Not on filedocumented as of this encounter Visit Diagnoses Not on filedocumented in this encounter Care Teams Supervisor Blast Furnace Relationship Specialty Start Date End Date Jose Holden MD PCP - General Otolaryngology 12/14/[address] [facility] [place] [address] documented as of this encounter
--- OUTSIDE RECORDS SUMMARY | 2022-09-20 14:04 | XMS_ITS | Encounter Summary ---
:1965 Author Organization [facility] Address [address] [address] Care Team Providers Name Role Phone Jose Holden MD Primary Care Provider [phone] Encounter Details Date Type Department Care Team Description 12/02/2017 Orders Only External to Pete Gonzalez MD [address] [place], [place] [address] (Wo rk) Social History Tobacco Use Types [...] 12/02/2017 12:00 AM Resul ts for this WAX PATTERN ASSEMBLER procedure are i n the results section. documented in this encounter Results MRI SPINE--SCAN (12/02/2017 12:00 AM WAX PATTERN ASSEMBLER) Anatomical Region Laterality Modality Other Specimen (Source) Anatomical Location Collection Method / Collectio n Time Received Time / Laterality Volume 12/02/2017 Narrative This result has an attachment that is no t available. Pete Gonzalez MD DUMMY/OTHER/AR documented in this encounter Visit Diagnoses Not on filedocumented in this encounter Care Teams Director Institution Relationship Specialty Start Date End Date Jose Holden MD PCP - General Otolaryngology 12/14/17 [address] [place], [place] [address] documented as of this encounter
--- OUTSIDE RECORDS SUMMARY | 2022-09-20 14:04 | XMS_ITS | Encounter Summary ---
:1965 [facility] Address [address] [place] [address] Care Team Providers Name Role Phone Jose Holden MD Primary Care Provider [phone] Encounter Details Date Type Department Care Team Description 01/17/2018 Telephone [facility] Chava Simon RN Center Neurosurgery/ Ortho Spine [address] [facility] [place] [address] Social History Tobacco Use Types [...] in. Chava Simon RN 01/17/2018, 1:26 PM RGLASS BOAT PARTS FINISHER documented in this encounter Plan of Treatment Not on filedocumented as of this encounter Visit Diagnoses Not on filedocumented in this encounter Care Teams Reliability Specialist Relationship Specialty Start Date End Date Jose Holden MD PCP - General Otolaryngology 12/14/17 [address] [place] [address] documented as of this encounter
--- OUTSIDE RECORDS SUMMARY | 2022-09-20 14:04 | XMS_ITS | Encounter Summary ---
:1965 Author Organization [facility] Address [address] [place] [address] Care Team Providers Name Role Phone Jose Holden MD Primary Care Provider [phone] Reason for Referral Consult/Transfer Care (Routine) - Closed Specialty Diagnoses / Procedures Referred By Contact Refer red To Contact Neurosurgery Diagnoses Pseudarthrosis after fusion or arthrodesis Pete Gonzalez MD [facility] Neurosurgery/Ortho [address] [place] [address] [place] [address] Phone: Fax: Referral ID Status Reason Start Date Expiration Date Visits Requ ested Visits Authorized [id number] Closed 01/17/2018 04/18/2019 1 1 Scheduling Instructions Your provider has recommended an appoint ment for a pre-operative pain consult with [facility].?? You may call [phone] to schedule your appointment.?? If you prefer, a mirela billy will contact you within the next 3 business days to assist you in setting u p this appointment. [facility] Reason for Visit Reason Comments Revisit Encounter Details Date Type Department Care Team Description 01/17/2018 Office Visit [facility], Pseudarthr osis after Neuroscience Center MD fusion or arthrodesis Neurosurgery/Ortho [address] (Primar y Dx) [address] [place] [address] [place] [address] [phone] Social History Tobacco Use Types Packs/Day Years [...] Comments Blood Pressure 137/83 01/17/2018 11:51 AM SUPERVISOR WINDING DEPARTMENT Pulse 83 01/17/2018 11:51 AM SUPERVISOR WINDING DEPARTMENT Temperature 36.5 ??C (97.7 ??F) 01/17/2018 11:51 AM SUPERVISOR WINDING DEPARTMENT Respiratory Rate 16 01/17/2018 11:51 AM SUPERVISOR WINDING DEPARTMENT Oxygen Saturation - - Inhaled Oxygen Concentration [...] business days) Please call Ana Rosa at [phone] if you have not heard from her. [...] prior to surgery. Please fax preops to [phone] Nothing to eat or drink from midnight [...] and Apply plenty of Hibiclens*, a special cabin cleaner, to a clean, wet washcloth. Wash [...] 8am-5pm, please call the Neurosurgery Clinic at [phone] if youhave any concerns related to your surgery before going to the Emergency Room, your family physician,or an Urgent Care. After hours call the [facility] at [phone]. PAIN MEDICATION POLICY The Department of Neurosurgery [...] duringweekend hours. Day of surgery, arrive at [facility] on 3rd floor 2 hours prior to surgery. The Same Day Surgery Nurses will call you 1-3 days prior to surgery to inform you what time you should arrive for your surgery. If they do not reach you, please call if your surgery is at [facility]. Review your surgery packet. Contact the Neurosurgery Center [phone] if you have any questions or concerns [facility] documented in this encounter Progress Notes Pete [...] is prone to typos and grammatical errors. [facility]PART[facility] documented in this encounter Plan of Treatment Scheduled Referrals Name Type Priority Associated Diagnoses Order S chedule PRE-OP PAIN CONSULT Referral Routine Pseudarthrosis after fusion Ordered: 01/17/2018 - ADULT or arthrodesis documented as of this encounter Procedures Procedure Name Priority Date/Time Associated Diagnosis Comme nts MRSA/MSSA PRE-OP Routine 01/17/2018 1:48 PM Pseudarthrosis aft er Results for this CULTURE [facility]OR W[facility]ING DEPARTMENT fusion or arthrodesis proced ure are in the results section. documented in this encounter Results MRSA/MSSA Pre-Op Culture (01/17/2018 1:48 PM SUPER[facility]OR W[facility]ING DEPARTMENT) Component Value Ref Test Analysis Performed At [facility] Range Method Time Signature Specimen Nose Swab [facility] Description LABORATORIES Special Unspecified [facility] Requests LABORATORIES Culture No Staphylococcus [facility] aureus Isolated LABORATORIES Report Status 01/18/2018 [facility] Final LABORATORIES Specimen Anatomical Collection Method Collection Time Receive d Time (Source) Location / / Volume Laterality Nasal swab taken NASAL STRUCTURE / 01/17/2018 1:48 PM 01/17/2018 1:49 (situation) Unknown [facility] PM [facility] Pete Gonzalez MD LAB_1 Performing Organization Address City/State/ZIP Code Phon e Number [facility] [phone] documented in this encounter Visit Diagnoses Diagnosis Pseudarthrosis after fusion or arthrodes is - Primary Arthrodesis status documented in this encounter Care Teams Plate Drying Machine Tender Relationship Specialty Start Date End Date Jose Holden MD PCP - General Otolaryngology 12/14/17 [address] [place] [address] documented as of this encounter
--- OUTSIDE RECORDS SUMMARY | 2022-09-20 14:04 | XMS_ITS | Encounter Summary ---
:1965 Author Organization [facility] Address [address] [place] [address] Care Team Providers Name Role Phone Unassigned, Provider Primary Care Provider Unavailable Encounter Details Date Type Department Care Team Description 12/13/2006 [facility] Curtis Antoine Op Report-Archive [address] StreetBritton García [place] [address] [facility] [phone] [place] [address] Social History Tobacco Use Types Packs/Day Years Used Date Smoking Tobacco: Never Assessed Sex Assigned at Date Recorded Not on file documented as of this encounter Plan of Treatment Not on filedocumented as of this encounter Visit Diagnoses Not on filedocumented in this encounter Care Teams Perl Software Engineer Relationship Specialty Start Date End Date Unassigned, Provider PCP - General 08/05/03 12/13/17 [address] [place] [address] documented as of this encounter
--- OUTSIDE RECORDS SUMMARY | 2022-09-20 14:04 | XMS_ITS | Encounter Summary ---
:1965 Author Organization [facility] Address [address] [place] [address] Care Team Providers Name Role Phone Elsewhere, Pcp Primary Care Provider Unavailable Reason for Visit Reason Comments Med Refill Encounter Details Date Type Department Care Team Description 07/19/2022 Refill Division of [facility] Internal H Hoda parmar M.D. Med Refill Medicine, [facility], [place] [address] [place] [address] [place], [place] [address] [phone] Social History Tobacco Use Types Packs/Day Years [...] you attend pentecostalism or Patient refused 2021 alevism services? Do [...] documented as of this encounter Care Teams Bullet Slug Casting Machine Operator Relationship Specialty Start Date End Date Elsewhere, Pcp PCP - General Family Medicine 12/25/21 documented as of this encounter
--- OUTSIDE RECORDS SUMMARY | 2022-09-20 14:04 | XMS_ITS | Encounter Summary ---
:1965 Author Organization [facility] Address [address] [place] [address] Care Team Providers Name Role Phone Elsewhere, Pcp Primary Care Provider Unavailable Reason for Visit Reason Comments Pre-visit Intake Encounter Details Date Type Department Care Team Description 09/01/2022 Clinical Communication Visit Review in Pr e-visit Intake [place], [place] [address] [place] [address] Social History Tobacco Use Types Packs/Day Years [...] you attend presybeterian or Patient refused 2021 mandaeism services? Do [...] as of this encounter Care Teams Manufacturing Operations Manager Relationship Specialty Start Date End Date Elsewhere, Pcp PCP - General Family Medicine 12/25/21 documented as of this encounter
--- OUTSIDE RECORDS SUMMARY | 2022-09-20 14:04 | XMS_ITS | Encounter Summary ---
:1965 Author Organization [facility] Address [address], [place] [address] Care Team Providers Name Role Phone Unassigned, Provider Primary Care Provider Unavailable Reason for Visit Procedure/Equipment (Routine) - Incomplete Specialty Diagnoses / Procedures Referred By Contact Refer red To Contact Diagnoses Screening procedure Pseudarthrosis after fusion or arthrodesis Pete Gonzalez MD Procedures XR Cervical Spine W Flex And Ext [address] [place] [address] Referral ID Status Reason Start Date Expiration Date Visits V isits Requested Authorized [id number] Incomplete 10/31/2017 01/30/2019 1 1 Encounter Details Date Type Department Care Team Description 11/29/2017 Imaging [facility]ined[facility] MD Screening procedure [facility] [address] [facility] Radiology [place], [place] [address] [address] [place] [address] [phone] Social History Tobacco Use Types Packs/Day Years [...] dure Results for this FLEX AND EXT AUDIOVISUAL LIBRARIAN procedure are i n the results section. documented in this encounter Results XR Cervical Spine W Flex And Ext (11/29/2017 9:54 AM AUDIOVISUAL LIBRARIAN) Anatomical Region Laterality Modality Spine, C-Spine, Neck Computed Radiograph y Specimen (Source) Anatomical Collection Method Collection Time Re ceived Time Location / / Volume Laterality 11/29/2017 9:54 AM AUDIOVISUAL LIBRARIAN Narrative 11/29/2017 10:59 AM AUDIOVISUAL LIBRARIAN XR CERVICAL SPINE W FLEX AND EXT [...] condition documented in this encounter Care Teams Dispensary Clerk Relationship Specialty Start Date End Date Unassigned, Provider PCP - General 08/05/03 12/13/[address] [place] [id number] documented as of this encounter
--- OUTSIDE RECORDS SUMMARY | 2022-09-20 14:04 | XMS_ITS | Encounter Summary ---
:1965 Author [facility] Address [address], [place] [address] Care Team Providers Name Role Phone Jose Holden MD Primary Care Provider [phone] Reason for Visit Therapies (Routine) - Closed Specialty Diagnoses / Procedures Referred By Contact Refer red To Contact Diagnoses Pseudarthrosis after fusion or arthrodesis Screening procedure Pete Gonzalez MD [address] [place] [address] Referral ID Status Reason Start Date Expiration Date Visits Requ ested Visits Authorized [id number] Closed 11/29/2017 01/28/2018 1 1 Encounter Details Date Type Department Care Team Description 12/26/2017 Office Visit Pete Orona MD [address] [place] [address] Pharyngeal dysphagia [facility] Kaykay Wyman RESIDENT INTERN [address] [place], [place] [id number] (Primary Dx) Speech Therapy [address] [place] [address]. [id number], [place] [phone] Social History Tobacco Use Types Packs/Day Years Used Date Smoking Tobacco: Every Day Cigarettes 0.5 Smokeless Tobacco: Never Alcohol Use Standard Drinks/Week Comments No 0 (1 standard drink = 0.6 oz pure alcoho l) Sex Assigned at Date Recorded Not on file documented as of this encounter Patient Instructions Patient InstructionsKaykay Wyman SLP - 12/26/2017 12:30 PM LEAD CYTOGENETIC TECHNOLOGIST You had a swallow test today. I [...] sensation of food catching. Kaykay Monroy MA CCC/RESIDENT INTERN Speech-Language Pathologist M-F Office: [phone] CYTOGENETIC TECHNOLOGIST documented in this encounter Progress Notes Kaykay Wyman, RESIDENT INTERN - 12/26/2017 12:30 PM CST SPEECH LANGUAGE PATHOLOGY MODIFIED BARIUM SWALLOW INITIAL EVALUATION ASSESSMENT Patient is referred for dysphagia evaluation as part of surgical consultation related to past ACDF 1[place] ago [place] with consideration of revision ACDF surgery in [...] food sticking, especially on textures that are drier transfer car operator (meats, breads, etc). I would anticipate [...] goals established as no further intervention from RESIDENT INTERN service is warranted at this time. [...] none Total Treatment Time: 45 minutes Kaykay Mornoy CCC-RESIDENT INTERN 12/26/2017 documented in this encounter Plan of Treatment Scheduled Referrals Name Type Priority Associated Diagnoses Order S chedule Speech Therapy Referral Routine Pseudarthrosis after fusio n or Ordered: 11/29/2017 arthrodesis Screening procedure documented as of this encounter Visit Diagnoses Diagnosis Pharyngeal dysphagia - Primary Dysphagia, pharyngeal phase documented in this encounter Care Teams Scanner Operator Relationship Specialty Start Date End Date Jose Holden MD PCP - General Otolaryngology 12/14/17 [place] [address] documented as of this encounter
--- OUTSIDE RECORDS SUMMARY | 2022-09-20 14:04 | XMS_ITS | Encounter Summary ---
:1965 Author Organization [facility] Address [address] [place] [address] Care Team Providers Name Role Phone Elsewhere, Pcp Primary Care Provider Unavailable Reason for Visit Reason Comments Pre-visit Intake Encounter Details Date Type Department Care Team Description 06/25/2022 Clinical Communication Visit Review in Pr e-visit Intake [place], [place] [address] [place] [address] Social History Tobacco Use Types [...] you attend restorationism or Patient refused 2021 church services? Do [...] documented as of this encounter Care Teams Drying Equipment Operator Relationship Specialty Start Date End Date Elsewhere, Pcp PCP - General Family Medicine 12/25/21 documented as of this encounter
--- OUTSIDE RECORDS SUMMARY | 2022-09-20 14:04 | XMS_ITS | Encounter Summary ---
:1965 Author Organization [facility] Address [address], [place] [address] Care Team Providers Name Role Phone Jose Holden MD Primary Care Provider [phone] Reason for Visit Reason Comments Consult, New Patient vocal cord analysis Consult/Transfer Care (Routine) - Closed Specialty Diagnoses / Procedures Referred By Contact Refer red To Contact Diagnoses Pseudarthrosis after fusion or arthrodesis Screening procedure Pete Gonzalez MD [address] [place] [address] Referral ID Status Reason Start Date Expiration Date Visits Requ ested Visits Authorized [id number] Closed 11/29/2017 02/28/2019 1 1 Encounter Details Date Type Department Care Team Description 12/26/2017 Office Visit Specialty Center Jose Holden Cer vical vertebral 401 Otolaryngology MD Deyvi fusion (Primary Dx) [address] [place] [address] [place], [place] [phone] Social History Tobacco Use Types Packs/Day Years [...] (166 lb 12.8 oz) 12/26/2017 2:06 PM PUBLIC HOUSING INTERVIEWER Height - - Body Mass Index 32.58 11/29/2017 10:21 AM PUBLIC HOUSING INTERVIEWER documented in this encounter Progress Notes Jose Holden MD - 12/26/2017 3:00 PM CST HPI: Angie Mosquera is a 52 y.o. old female who presents for vocal cord evaluation prior to cervical spine surgery. Patient has significant history of cervical spine surgery having approximate four procedures, three in [place] here in the [place] area last year. After her last surgery, developed significant hoarseness, loss of voice for approximately three months. Cervical approach with her last surgery was left-hand side. States that she was evaluated by a indoor plant technician and there were plans for a procedure [...] times per day. 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 Not currently working. [...] software and may contain unintended word substitutions. IC HOUSING INTERVIEWER documented in this encounter Plan of Treatment Not on filedocumented as of this encounter Visit Diagnoses Diagnosis Cervical vertebral fusion - Primary Klippel-Feil syndrome documented in this encounter Care Teams Swimming Coach Relationship Specialty Start Date End Date Jose Holden MD PCP - General Otolaryngology 12/14/17 [facility] [place] [address] documented as of this encounter
--- OUTSIDE RECORDS SUMMARY | 2022-09-20 14:04 | XMS_ITS | Encounter Summary ---
:1965 Author Organization [facility] Address [address] [place] [address] Care Team Providers Name Role Phone Elsewhere, Pcp Primary Care Provider Unavailable Encounter Details Date Type Department Care Team Description 09/06/2022 Clinical Communication Department of [facility] in [place], [place] 200 [facility] [address] [place] [id number] [phone] Social History Tobacco Use Types Packs/Day Years [...] you attend confucianist or Patient refused 2021 lutheran services? Do [...] documented as of this encounter Care Teams Router Operator Relationship Specialty Start Date End Date Elsewhere, Pcp PCP - General Family Medicine 12/25/21 documented as of this encounter
--- OUTSIDE RECORDS SUMMARY | 2022-09-20 14:04 | XMS_ITS | Encounter Summary ---
:1965 Author Organization [facility] Address [address] [place] [address] Care Team Providers Name Role Phone Elsewhere, Pcp Primary Care Provider Unavailable Reason for Visit Appointment Request (Routine) - Closed Specialty Diagnoses / Procedures Referred By Contact Refer red To Contact Orthopedic Surgery Diagnoses Aftercare Total Shoulder Arthroplasty Referral ID Status Reason Start Date Expiration Date Visits Requ ested Visits Authorized [id number] Closed 06/23/2022 06/23/2023 1 1 Encounter Details Date Type Department Care Team Description 06/29/2022 Office Visit [facility] of [facility] in [place] (Primary Dx) [place], [place] [address] [place] [address] [address] [place] [address] [phone] Social History Tobacco Use Types Packs/Day Years [...] is dismissed to follow up through the [facility], Department of Orthopedic Surgery Total Joint [...] as of this encounter Care Teams Web Site Admin Relationship Specialty Start Date End Date Elsewhere, Pcp PCP - General Family Medicine 12/25/21 documented as of this encounter
--- OUTSIDE RECORDS SUMMARY | 2022-09-20 14:04 | XMS_ITS | Encounter Summary ---
:1965 Author Organization [facility] Address [address], [place] [address] Care Team Providers Name Role Phone Unassigned, Provider Primary Care Provider Unavailable Reason for Referral Procedure/Equipment (Routine) - Incomplete Specialty Diagnoses / Procedures Referred By Contact Refer red To Contact Diagnoses Screening procedure Pseudarthrosis after fusion or arthrodesis Pete Gonzalez MD Procedures FL Video Swallow Study [address] [place] [address] Referral ID Status Reason Start Date Expiration Date Visits V isits Requested Authorized [id number] Incomplete 11/29/2017 02/28/2019 1 1 herapies (Routine) - Closed Specialty Diagnoses / Procedures Referred By Contact Refer herson To Contact Diagnoses Pseudarthrosis after fusion or arthrodesis Screening procedure Pete Gonzalez MD [address] [place] [address] Referral ID Status Reason Start Date Expiration Date Visits Requ ested Visits Authorized [id number] Closed 11/29/2017 01/28/2018 1 1 Scheduling Instructions Your provider has recommended an appoint ment with a [facility]rap[facility]. Please stop at the clinic check out desk for as sistance with scheduling or if you prefer to call for your appointment you may call [facility] at [phone]. We suggest you call your [facility] insurance company about your coverage and benefits for this appointment. OFLASH POWDER MIXER Consult/Transfer Care (Routine) - Closed Specialty Diagnoses / Procedures Referred By Contact Refer red To Contact Diagnoses Pseudarthrosis after fusion or arthrodesis Screening procedure Pete Gonzalez MD [address] [place] [address] Referral ID Status Reason Start Date Expiration Date Visits Requ ested Visits Authorized [id number] Closed 11/29/2017 02/28/2019 1 1 Scheduling Instructions Your provider has recommended an appoint ment with [facility]. You may call [phone], optio n [phone], to schedule your appointment. If you prefer, a construction scheduler will contact you heena hebert the next 3 business days to assist you in setting up this appointment. We suggest you call your health insurance company about your coverage and benefits for this appo intment. OFLASH POWDER MIXER Procedure/Equipment (Routine) - Incomplete Specialty Diagnoses / Procedures Referred By Contact Refer red To Contact Diagnoses Screening procedure Pseudarthrosis after fusion or arthrodesis Pete Gonzalez MD Procedures XR Cervical Spine W Flex And Ext [address] [place] [address] Referral ID Status Reason Start Date Expiration Date Visits V isits Requested Authorized [id number] Incomplete 10/31/2017 01/30/2019 1 1 OFLASH POWDER MIXER Reason for Visit Reason Comments SECOND OPINION Consult/Transfer Care (Routine) - Closed Specialty Diagnoses / Procedures Referred By Contact Refer red To Contact Neurosurgery Ihsan rBooke MD [facility] Neurosurgery/Ortho [address] [place] [address] [place] [address]. [place] [address] Phone: Fax: Referral ID Status Reason Start Date Expiration Date Visits Requ ested Visits Authorized [id number] Closed 09/26/2017 12/26/2018 1 1 Encounter Details Date Type Department Care Team Description 11/29/2017 Office Visit [facility] Pete Gonzalez, Pseudarthr osis after fusion or arthrodesis (Primary Dx); [facility] Cervical spondylosis with radiculopathy; Neurosurgery/Ortho [address] occipital neuralgia; [address] Screening procedure [address] [place] [address] [place] [address] [phone] Social History Tobacco Use Types Packs/Day Years Used Date Smoking Tobacco: Every Day Cigarettes 0.5 Smokeless Tobacco: Never Alcohol Use Standard Drinks/Week Comments No 0 (1 standard drink = 0.6 oz pure alcoho l) Sex Assigned at Date Recorded Not on file documented as of this encounter Last Filed Vital Signs Vital Sign Reading Time Taken Comments Blood Pressure 126/77 11/29/2017 10:21 AM PHOTOFLASH POWDER MIXER Pulse 77 11/29/2017 10:21 AM PHOTOFLASH POWDER MIXER Temperature - - Respiratory Rate - - Oxygen Saturation - - Inhaled Oxygen Concentration - - Weight 75.4 kg (166 lb 3.2 oz) 11/29/2017 10:21 AM PHOTOFLASH POWDER MIXER Height 152.4 cm (5') 11/29/2017 10:21 AM PHOTOFLASH POWDER MIXER Body Mass Index 32.46 11/29/2017 10:21 AM PHOTOFLASH POWDER MIXER documented in this encounter Patient Instructions Patient InstructionsChava Simon RN - 11/29/2017 10:00 AM CST [facility] Patient Instructions Tests: You will be [...] your understanding. Please call the Neurosurgery Center [phone] with any further questions or concerns or if your symptoms worsen. Thank you for coming to see us today. We are your partner. OFLASH POWDER MIXER documented in this encounter Progress Notes Lois [...] after C3-T1 posterior cervical fusion done at [facility] in [place] multiple years ago. The T1 screws are [...] on fentanyl, ms contin and oxycontin in [place]. PSURGHX:No past surgical history on file. PMEDHX:No past medical history on file. MEDICATIONS: Outpatient Prescriptions as of 11/29/2017: benzonatate (TESSALON) 100 MG capsule Take 100 mg by mouth. Note (11/29/2017): Received from: [facility] Received Sig: Take 1 capsule by mouth 3 times daily if needed for Cough. Disp: Rfl: budesonide-formoterol (SYMBICORT) 160-4.5 MCG/ACT inhaler Inhale 2 Puffs. Note (11/29/2017): Received from: [facility] Received Sig: INHALE 2 PUFFS BY [...] Tab by mouth. Note (11/29/2017): Received from: [facility] Received Sig: Take 1 tablet bymouth 2 [...] No narrative on file ROS: Reviewed per [facility] Neurosurgery New Patient Health Packet History [...] 4/5 C7 Triceps: 5/5 4/5 C8 Finger flexors/under water assistant: 5/5 5/5 T1 Intrinsics: 5/5 5/5 Sensation: Intact with light touch bue/ble. Skin: Warm to touch to bilateral upper/lower extremities. No skin rashes or lesions noted RADIOLOGY: Personally reviewed CT scans from OSH as well as XR from here. No formal report for either available. Shows previous C3-T1 posterior fusion, appears fused C3-C6, screws at T1 appear lose. Q5ogplss through the facet joint. ASSESSMENT: 52 year old female s/p multiple previous cervical spine surgeries including C3-T1 posterior fusion (done in [place] approx 6 years ago), with C6-T1 pseudoarthrosis, [...] of the chart to: Ihsan Brooke MD [address] [id number] Lois Pham PA-C, 11/29/2017, 12:34 PM OFLASH POWDER MIXER documented in this encounter Plan of Treatment Scheduled Referrals Name Type Priority Associated Diagnoses Order S chedule Otolaryngology Consult Referral Routine Pseudarthrosis aft er Ordered: Adult/Peds fusion or arthro desis 11/29/2017 Screening procedure Speech Therapy Referral Routine Pseudarthrosis after Order ed: fusion or arthro desis 11/29/2017 Screening procedure documented as of this encounter Results FL Video Swallow Study (12/26/2017 1:03 PM PHOTOFLASH POWDER MIXER) Anatomical Region Laterality Modality Neck, Chest Radio Fluoroscopy Specimen (Source) Anatomical Collection Method Collection Time Re ceived Time Location / / Volume Laterality 12/26/2017 1:03 PM PHOTOFLASH POWDER MIXER Narrative 12/26/2017 6:00 PM PHOTOFLASH POWDER MIXER VA VIDEO SWALLOW STUDY 12/26/2017 1:03 PM INDICATION: [...] note might be different from the original. VA VIDEO SWALLOW STUDY 12/26/2017 1:03 PM INDICATION: [...] W Flex And Ext (11/29/2017 9:54 AM PHOTOFLASH POWDER MIXER) Anatomical Region Laterality Modality Spine, C-Spine, Neck Computed Radiograph y Specimen (Source) Anatomical Collection Method Collection Time Re ceived Time Location / / Volume Laterality 11/29/2017 9:54 AM PHOTOFLASH POWDER MIXER Narrative 11/29/2017 10:59 AM PHOTOFLASH POWDER MIXER XR CERVICAL SPINE W FLEX AND EXT [...] status documented in this encounter Care Teams Top Polisher Relationship Specialty Start Date End Date Unassigned, Provider PCP - General 08/05/03 12/13/[address] [place] [id number] documented as of this encounter
--- OUTSIDE RECORDS SUMMARY | 2022-09-20 14:04 | XMS_ITS | Clinical Summary ---
:1965 Author Organization [facility] Address [address] [place] [address] Care Team Providers Name Role Phone Elsewhere, Pcp Primary Care Provider Unavailable Source Comments Patient records contain information from all sites at [facility]. For routine questions regarding patient records, call [phone] during business hours, M-F 8:00 AM - 5:00 PM Central Time. Record requests for emergency care only can be directed to [phone] at any time.[facility] Allergies Active Allergy Reactions Severity [...] 10/13/2017 Other lashaun ction(s): (see comments) Contact [place] titis Gabapentin Other (see comments) Low [...] 80 mg oral Daily, Reported on 06/21/2022 vmvabtskrt-[id number]-dffk Take 1 tablet by 0 12/2020 Active [...] by 0 01/28 Active mouth at bedtime. multivit-min/iron/folic/thq731 Take 1 tablet by 0 Active (HAIR, [...] Added automatically from request for lonnie li [id number] Nicotine Dependence Unspecified 11/29/2017 Other Customer Experience Strategist Current Drug Therapy 12/30/2016 Opioid Moderate Or Severe Use Disorder (Dependence) Un complicated 08/27/2016 Bipolar II Disorder 09/27/2007 Transient Ischemic Attack Encounters Date Type Specialty Care Team Description 09/06/2022 Documentation Orthopedic Surgery Cyrus Polk M.D. 09/06/2022 Clinical Neurology Fazal, Walking assista nt Communication Robert Celaya device (Fazal and Lilian Neurosurgery ) 09/06/2022 Clinical Orthopedic Surgery Veronica Polk M.D. 09/01/2022 Clinical Admitting/Central Pre-visit Intake Communication Scheduling 08/09/2022 Clinical Orthopedic Surgery Jam Return Vi sit Communication Cyrus Souza M.D. 07/19/2022 Refill Community Internal Hoda Benito Refil l Francisco J Patel M.D. 06/29/2022 Comprehensive Visit Physical Medicine and Elvis Broderick Procedure And Treatment Not Carried Out Due To Patient Leaving Prior To Being Seen By Health Care Provider (Primary Dx); Rehabilitation Lilian Porter Aftercare Total Shoulder Arthroplasty Jessie Faye M.S., O.T. 06/29/2022 Hospital Encounter Radiology Flavia Broderick Harman Porter M.D. Shoulder Arthroplasty 06/29/2022 Office Visit Orthopedic Surgery Jam, Pain Shou lder Left Cyrus Souza M.D. (Primary Dx) 06/28/2022 Clinical Acute Care Latrice, Patient needs t o Veronica Hughes M.D. r/s Jul 02 appointments 06/25/2022 Clinical Admitting/Central Pre-visit Intake Communication Scheduling 06/23/2022 Clinical Orthopedic Surgery Jam, Post-op Communication Cyrus Souza M.D. 06/22/2022 Clinical Acute [facility] Latrice, Pregabalin Communication Lilian Hughes prescription 06/21/2022 [facility] Latrice, Medication Ques tion Communication Lilian Hughes from Last 3 Months Immunizations Name Administration [...] you attend nondenominational or Patient refused 2021 anabaptist services? Do [...] 09/11/2021, 09/13/2020 Medical Devices Implanted Type Area Seo Strategist Device Shelf Model / Identifier Expiration Serial / Date Lot Cmnt Bn Smp 20gm - [id number] Bone Cement Left: [place] [id number] / Implanted: Qty: 1 on 12/30/2021 by Cyrus Panchal M.D. at [facility] Shoulder / Grft Dbm Grf Obl Ld 15 - [id number] - [id number] Bone or Tis lebron Left: Medtronic 10/14/2023 [id number] / Implanted: Qty: 1 on 02/26/2022 at [facility] Shoulder [id number] / 4mm Amplatz Micro Plug Embolization Brain Amplatzer [id number] / Implanted: Qty: 1 on 02/16/2021 by Mustapha Posey M.D. at [facility] Coil Ems Driver / Dayo [id number] Description: MRI Conditional at 1.5T or 3T Max Whole Body YUSEF of 4 W/kg. AAC 2020 [email or web address]/ Hardware E.G. Hardware e.g. Neck Pins/Screws/Rods pins/screws/rods Scrw Cmp Pthrd 6.5x25 - [id number] Hardware e.g. Left: Trevor B iomet 12/29 [id number] / Implanted: Qty: 1 on 02/26/2022 at [facility] pins/screws/rods Shoulder 05/17 [id number] Knee Implant Knee Implant Bilateral: Knee Plg Ocl Amp Avpii 6 - [id number] Mesh or Patch Pedersen 07/31 [id number] / Implanted: Qty: 1 on 02/16/2021 by Mustapha Posey M.D. at [facility] [id number] Shoulder Implant Shoulder Implant Left: Shoulder Bsplt Glnd Cmp Rv Aug Sm - [id number] Shoulder Implant Left: Trevor Biomet 01/26 [id number] / Implanted: Qty: 1 on 02/26/2022 at [facility] Shoulder [id number] Hum Stm Cmp Rvrs Prim Mini 9 - [id number] Shoulder Implant Le ft: Trevor Biomet 08/28 [id number] / Implanted: Qty: 1 on 05/18/2022 by Cyrus Panchal M.D. at [facility] Shoulder 02/14 [id number] Medtronic Spinal Cord Stimulator Spinal Cord Back Medtronic [id number] / Implanted: 06/30/2020 (Quantity not on file) Stimulator [id number] / [id number] Description: Medtronic M-Dot Networklis Spinal Cord Stimulator model #[id number]. As of 06/17/22, the stimulator IPG is [...] as of 03-19-21 SDN Explanted Type Area Seo Strategist Device Shelf Model / Identifier Expiration Serial / Date Lot [facility] Hd Vrs Dl [id number] - [id number] Shoulder Left: Trevor Biom et 05/29/2031 [id number] / Implanted: Qty: 1 on 12/30/2021 by Cyrus Panchal M.D. at [facility] Implant Shoulder / Explanted: Qty: 1 on 02/26/2022 at [facility] [id number] [facility] Rvrs Prim Std 10 - [id number] Shoulder Left: Zi mmer Biomet 12/16/2029 [id number] / Implanted: Qty: 1 on 02/26/2022 at [facility] Implant Shoulder / Explanted: Qty: 1 on 05/18/2022 at [facility] [id number] Spinal Cord Stimulator Spinal Cord Pelvis Nevro Explanted: 03/10/2020 (Quantity not on file) Stimulator Description: Device was explanted on 02-26 per Rachelro Support. HEMALATHA 03-19-21 Procedures Procedure Name Priority Date/Time Associated Comments Diagnosis DX SHOULDER LEFT RAD - Routine 06/29/2022 9:34 Aftercare Total Resu lts for this 2+ VIEWS (most inpatients AM CDT Shoulder procedure a re in and all Arthroplasty the results outpatients) section. from Last 3 Months Results DX [...] Broderick M.D. IMG DIAGNOSTIC IMAGING PROCE DURES from Last 3 Months Insurance Payer Benefit Plan / Subscriber ID Effective Phone Address T ype Group Dates MEDICARE MEDICARE A AND B [id number] 2012-Pre [address] [place] [address] MEDICA MEDICA [id number] 2018-Pres [phone] Medica id O ACCESSABILITY ent [phone] [place] [address] Advance Directives For more information, please contact: [phone] Latest Code Status on File Code Status [...] Answer Comments Full Code: Discussed Care Teams Family Centered Specialist Relationship Specialty Start Date End Date Elsewhere, Pcp PCP - General Family Medicine 12/25/21
--- OUTSIDE RECORDS SUMMARY | 2022-09-20 14:04 | XMS_ITS | Encounter Summary ---
:1965 Author Organization [facility] Address [address] [place] [address] Care Team Providers Name Role Phone Unassigned, Provider Primary Care Provider Unavailable Encounter Details Date Type Department Care Team Description 10/28/2005 [facility] Crutis Antoine Op Report-Archive [address] Santos StreetBritton García [place] [address] [address] [facility] [phone] [place] [address] Social History Tobacco Use Types Packs/Day Years Used Date Smoking Tobacco: Never Assessed Sex Assigned at Date Recorded Not on file documented as of this encounter Plan of Treatment Not on filedocumented as of this encounter Visit Diagnoses Not on filedocumented in this encounter Care Teams Complaint Analyst Relationship Specialty Start Date End Date Unassigned, Provider PCP - General 08/05/03 12/13/17 [address] [place] [address] documented as of this encounter
--- OUTSIDE RECORDS SUMMARY | 2022-09-20 14:04 | XMS_ITS | Encounter Summary ---
:1965 Author Organization [facility] Address [address] [place] [address] Care Team Providers Name Role Phone Elsewhere, Pcp Primary Care Provider Unavailable Reason for Visit Reason Comments Walking retail assistant device Fazal and Neurosurgery Encounter Details Date Type Department Care Team Description 09/06/2022 Clinical Communication Department of Robert Diehl retail assistant Neurology in L, M.DBritton device ([facility] [place], [address] [place] [address] Neurosurgery ) [place], [place] [address] [place] [address] [place], [place] [phone] (Work) [phone] Social History Tobacco Use Types Packs/Day Years [...] you attend holiness or Patient refused 2021 mandaeism services? Do [...] in contact with about getting a walking retail assistant device that will help her get [...] Stroke Cerebrovascular Accident Personal History Claire Aguayo, Optical Manager 09/06/22 1:47 PM CDT documented in this encounter Plan of Treatment Not on filedocumented as of this encounter Visit Diagnoses Not on filedocumented in this encounter Additional Health Concerns Assessment Noted Time PHQ-9 Depression Total Score: 16 02/11/2021 12:00 AM C DT documented as of this encounter Care Teams Compressor Stations Superintendent Relationship Specialty Start Date End Date Elsewhere, Pcp PCP - General Family Medicine 12/25/21 documented as of this encounter
--- OUTSIDE RECORDS SUMMARY | 2022-09-20 14:04 | XMS_ITS | Encounter Summary ---
:1965 Author Organization [facility] Address [address] [place] [address] Care Team Providers Name Role Phone Elsewhere, Pcp Primary Care Provider Unavailable Reason for Visit Reason Comments Patient needs to r/s Jul 02 appointments Encounter Details Date Type Department Care Team Description 06/28/2022 Clinical Communication RST ANDREW Pollard, Patient needs to r/s [address] [facility] Lilian Hughes Jul 02 appointments [place], [place] [address] [place] [address] [place] [address] Social History Tobacco Use Types Packs/Day Years [...] you attend taoist or Patient refused 2021 baptist services? Do [...] call patient re: this . Ronny, Maritza [phone] documented in this encounter Plan of Treatment Not on filedocumented as of this encounter Visit Diagnoses Not on filedocumented in this encounter Additional Health Concerns Assessment Noted Time PHQ-9 Depression Total Score: 16 02/11/2021 12:00 AM C DT documented as of this encounter Care Teams Mount Loader Relationship Specialty Start Date End Date Elsewhere, Pcp PCP - General Family Medicine 12/25/21 documented as of this encounter
--- OUTSIDE RECORDS SUMMARY | 2022-09-20 14:04 | XMS_ITS | Encounter Summary ---
:1965 Author Organization [facility] Address [address] [place] [address] Care Team Providers Name Role Phone Elsewhere, Pcp Primary Care Provider Unavailable Reason for Referral Physical Therapy (Routine) - Authorized Specialty Diagnoses / Procedures Referred By Contact Refer red To Contact Diagnoses Aftercare Total Shoulder Arthroplasty Flavia Broderick M.D. [facility] Procedures PT or OT eval and treat (first available) Referral ID Status Reason Start Date Expiration Date Visits V isits Requested Authorized [id number] Authorized 06/23/2022 06/23/2023 99 99 utpatient (Routine) - Closed Specialty Diagnoses / Procedures Referred By Contact Refer red To Contact Diagnoses Aftercare Total Shoulder Arthroplasty Flavia Broderick M.D. [facility] Procedures DX Shoulder Left 2+ Views Referral ID Status Reason Start Date Expiration Date Visits Requ ested Visits Authorized [id number] Closed 06/23/2022 06/23/2023 1 1 Reason for Visit Reason Comments Post-op Encounter Details Date Type Department Care Team Description 06/23/2022 Clinical Communication Department of Cyrus Polk st-op Orthopedic Surgery in Lilian Souza [place], [place] 200 [facility] [address] [place] [address] [phone] Social History Tobacco Use Types Packs/Day Years [...] documented as of this encounter Care Teams Jail Guard Relationship Specialty Start Date End Date Elsewhere, Pcp PCP - General Family Medicine 12/25/21 documented as of this encounter
--- OUTSIDE RECORDS SUMMARY | 2022-09-20 14:04 | XMS_ITS | Encounter Summary ---
:1965 Author Organization [facility] Address [address] [place] [address] Care Team Providers Name Role Phone Jose Holden MD Primary Care Provider [phone] Reason for Visit Procedure/Equipment (Routine) - Incomplete Specialty Diagnoses / Procedures Referred By Contact Refer red To Contact Diagnoses Screening procedure Pseudarthrosis after fusion or arthrodesis Pete Gonzalez MD Procedures FL Video Swallow Study [address] [place] [address] Referral ID Status Reason Start Date Expiration Date Visits V isits Requested Authorized [id number] Incomplete 11/29/2017 02/28/2019 1 1 Encounter Details Date Type Department Care Team Description 12/26/2017 Imaging [facility] MD Screening procedure; [facility] [address] [place], [place] [address]E Ps eudarthrosis after fusion or arthrodesis Radiology Fluoro S [address] [place] [address] [place] [address] [phone] (Wo rk) Social History Tobacco Use Types [...] Screening pr ocedure Results for this STUDY GARBAGE MAN Pseudarthrosis after procedu re are in fusion or the results arthrodesis section. documented in this encounter Results FL Video Swallow Study (12/26/2017 1:03 PM GARBAGE MAN) Anatomical Region Laterality Modality Neck, Chest Radio Fluoroscopy Specimen (Source) Anatomical Collection Method Collection Time Re ceived Time Location / / Volume Laterality 12/26/2017 1:03 PM GARBAGE MAN Narrative 12/26/2017 6:00 PM GARBAGE MAN FL VIDEO SWALLOW STUDY 12/26/2017 1:03 PM [...] sulfate (EZ PAQUE) Given 12/26/2017 1:06 PM GARBAGE MAN 200 mL suspension 200 mL 200 mL, Oral, ONCE (NON-SCHEDULED), Starting on Tue12/26/17 at 1305, For 1 dose barium sulfate (EZ-DISK) tablet 700 mg Given 12/26/2017 1:06 PM GARBAGE MAN 700 mg 700 mg, Oral, ONCE (NON-SCHEDULED), Starting on Tue12/26/17 at 1305, Until Tue12/26/17 at 1306, For 1 dose barium sulfate (EZ-PASTE) oral cream 9 g Given 12/26/2017 1:06 PM GARBAGE MAN 9 g 9 g (15 mL), Oral, ONCE (NON-SCHEDULED), Starting on Tue12/26/17 at 1305, For 1 dose barium sulfate (VARIBAR, TAGITOL V) 40 % Given 12/26/2017 1:06 P M GARBAGE MAN 240 mL suspension 240 mL 240 mL, Oral, ONCE (NON-SCHEDULED), Starting on Tue12/26/17 at 1305, Until Tue02/20/18 at 1710, For 3 doses documented in this encounter Care Teams Jv Baseball Coach Relationship Specialty Start Date End Date Jose Holden MD PCP - General Otolaryngology 12/14/17 [facility] [place] [address] documented as of this encounter
--- OUTSIDE RECORDS SUMMARY | 2022-09-20 14:04 | XMS_ITS | Encounter Summary ---
:1965 Author Organization [facility] Address [address], [place] [address] Care Team Providers Name Role Phone Jose Holden MD Primary Care Provider [phone] Encounter Details Date Type Department Care Team Description 12/02/2017 Orders Only External to Pete Gonzalez MD [address] [place], [place] [address] (Wo rk) Social History Tobacco Use Types [...] 12/02/2017 12:00 AM Resul ts for this AGRICULTURAL REAL ESTATE AGENT procedure are i n the results section. documented in this encounter Results MRI SPINE--SCAN (12/02/2017 12:00 AM AGRICULTURAL REAL ESTATE AGENT) Anatomical Region Laterality Modality Other Specimen (Source) Anatomical Location Collection Method / Collectio n Time Received Time / Laterality Volume 12/02/2017 Narrative This result has an attachment that is no t available. Pete Gonzalez MD DUMMY/OTHER/AR documented in this encounter Visit Diagnoses Not on filedocumented in this encounter Care Teams Pnp Relationship Specialty Start Date End Date Jose Holden MD PCP - General Otolaryngology 12/14/17 [address] [place], [place] [id number] documented as of this encounter
--- OUTSIDE RECORDS SUMMARY | 2022-09-20 14:04 | XMS_ITS | Encounter Summary ---
:1965 Author Organization [facility] Address [address] [place] [address] Care Team Providers Name Role Phone Elsewhere, Pcp Primary Care Provider Unavailable Reason for Referral Outpatient (Routine) - Closed Specialty Diagnoses / Procedures Referred By Contact Refer red To Contact Diagnoses Aftercare Total Shoulder Arthroplasty Flavia Broderick M.D. [facility] Procedures DX Shoulder Left 2+ Views Referral ID Status Reason Start Date Expiration Date Visits Requ ested Visits Authorized [id number] Closed 06/23/2022 06/23/2023 1 1 Reason for Visit Outpatient (Routine) - Closed Specialty Diagnoses / Procedures Referred By Contact Refer red To Contact Diagnoses Aftercare Total Shoulder Arthroplasty Flavia Broderick M.D. [facility] Procedures DX Shoulder Left 2+ Views Referral ID Status Reason Start Date Expiration Date Visits Requ ested Visits Authorized [id number] Closed 06/23/2022 06/23/2023 1 1 Encounter Details Date Type Department Care Team Description 06/29/2022 Hospital Encounter Department of Flavia Broderick re Total Radiology, Severiano Porter M.D. Shoulder Arthroplasty Building, in [place], [place] [address] [place] [address] Social History Tobacco Use Types Packs/Day Years [...] documented as of this encounter Care Teams Lapping Machine Set Up Operator Relationship Specialty Start Date End Date Elsewhere, Pcp PCP - General Family Medicine 12/25/21 documented as of this encounter
--- OUTSIDE RECORDS SUMMARY | 2022-09-20 14:04 | XMS_ITS | Encounter Summary ---
:1965 Author Organization [facility] Address [address] [place] [address] Care Team Providers Name Role Phone Elsewhere, Pcp Primary Care Provider Unavailable Encounter Details Date Type Department Care Team Description 09/06/2022 Documentation Department of Orthopedic Cyrus Polk, Surgery in [facility] [address] [place] [address] [phone] (Wo rk) Social History Tobacco Use Types [...] you attend restoration or Patient refused 2021 tenriism services? Do [...] or the highest technical, or vocational p [employer] Sports Centerram degree you have received? Sex Assigned at [...] Cyrus Polk M.D. CT CT Job ID: [id number] documented in this encounter Plan of Treatment Not on filedocumented as of this encounter Visit Diagnoses Not on filedocumented in this encounter Additional Health Concerns Assessment Noted Time PHQ-9 Depression Total Score: 16 02/11/2021 12:00 AM C DT documented as of this encounter Care Teams Laborer Livestock Relationship Specialty Start Date End Date Elsewhere, Pcp PCP - General Family Medicine 12/25/21 documented as of this encounter
--- OUTSIDE RECORDS SUMMARY | 2022-09-20 14:05 | XMS_ITS | Encounter Summary ---
:1965 Author Organization [facility] Address [address] [place] [address] Care Team Providers Name Role Phone Elsewhere, Pcp Primary Care Provider Unavailable Encounter Details Date Type Department Care Team Description 06/17/2022 Anesthesia Event Department of Radiology, Shantell Verma APRN, BOAT DISPATCHER, DNAP [address] [place] [phone] [facility] [address] [place] [address] [place], [place] [address] [place] [address] Anesthesia Record Procedure Summary Procedure Name Responsible Anesthesia Start Anesthesia Stop Time Anesthesiologist Time MR BRAIN WITHOUT IV Sapphire Verma APRN, BOAT DISPATCHER, 06/17/22 1446 1702 CONTRAST DNAP Events Date [...] h andoff to the receiving staff during whi ch we 1. Identified the patient 2. [...] over 3 days 1 patch (TRANSDERM S CDL PROGRAM COORDINATOR) 1 patch Lactated Ringers Free Drip 850 mL Agents No agents on file. Blood No blood administrations on file. Lines, Drains, and Airways Type Details Placement Removal Wound 05/18/22; 1258; N; 05/18/22 1258 by Incision; Shoulder; Rishi Murillo, R.N. Anterior, Left Peripheral IV Placement Date: 06/17/22; [...] wall movement; Removal Date: 06/17/22; Removal Time: 165 documented in this encounter Social History [...] you attend jain or Patient refused 2021 mu-ism services? 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 Risks/Benefits/Alternatives of Blood transfusion discussed with patient [...] ETT location: oral VL device: glide scope [place] scope blade size: 3 Adult tube size: [...] ?? Airway event: no complications Sapphire Luci SPOOLING OPERATOR, BOAT DISPATCHER, DNAP ANESTHESIA ORDERABLES documented in this encounter [...] as of this encounter Care Teams Manager Privacy Relationship Specialty Start Date End Date Elsewhere, Pcp PCP - General Family Medicine 12/25/21 documented as of this encounter
--- OUTSIDE RECORDS SUMMARY | 2022-09-20 14:05 | XMS_ITS | Encounter Summary ---
:[address] [facility] Address [address] [place] [address] Care Team Providers Name Role Phone Elsewhere, Pcp Primary Care Provider Unavailable Reason for Visit Reason Comments xray results Encounter Details Date Type Department Care Team Description 06/10/2022 Clinical Communication Department of Cyrus Polk ay results Orthopedic Surgery in Lilian Souza [place], [place] [address] [place] [address] 200 [place] [address] [phone] Social History Tobacco Use Types Packs/Day Years [...] you attend quaker or Patient refused 2021 voodoo services? Do [...] Cyrus Polk M.D. CT CT Job ID: [id number] documented in this encounter Miscellaneous Notes Telephone Encounter - AidecrystalSosa - 06/10/2022 11:51 AM CDT Patient is [...] documented as of this encounter Care Teams Fans Clerk Relationship Specialty Start Date End Date Elsewhere, Pcp PCP - General Family Medicine 12/25/21 documented as of this encounter
--- OUTSIDE RECORDS SUMMARY | 2022-09-20 14:05 | XMS_ITS | Encounter Summary ---
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 Diagnoses Weakness General Pain Back Ataxia Repeated Falls Debility Primary Osteoarthritis Shoulder Left 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 Stroke Cerebrovascular Accident Personal History Fusion Cervical Spine Status Post Maira Haynes, Fibromyalgia Chronic Pain Syndrome 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 [address] [place] [id number] Weakness General (Primary Dx); 06/18/2022 [facility] Neftali García M.D. [address] [place] [phone] Incontinence Urinary; [facility], Saul Pollard M.D. [address] [place] [phone] Pain Back; Domitilla Ataxia; Building, Third Repeated Fal ls; Floor Debility; [address] [facility] Primary Osteoarthritis Shoul marquis Left; [place] Ataxia From [facility] Cerebrovascular Accident; [id number] Stroke Cerebrovascular Accid ent Personal History; [phone] Fusion Cervical Spine Status Post; Fibromyalgia; Chronic [...] with the resident/fellow???s findings and plan. Ms. Demetri is doing well today. It was late [...] AM CDT DISCHARGE SUMMARY BRIEF OVERVIEW Hospital: [facility] Discharge Provider: Saul Pollard M.D. Primary Team: [facility] Medicine ([facility]) Primary Care Providers: Elsewhere, Pcp (General) No address on file Primary Care Provider Phone Number: None Primary Care Provider Fax Number: None Admission Date: 06/15/2022 Discharge Date: 06/18/2022 PRINCIPAL DIAGNOSIS Weakness General SECONDARY DIAGNOSES Principal Problem: Weakness General DISCHARGE DISPOSITION Home-Health Care c [6] ACTIVE [...] Scheduled Appointments 06/21/2022 11:00 AM PHR PHARMACIST [address] [place] [address] Pharmacy For appointment details refer to your Patient Appointment Guide. TEST RESULTS PENDING AT DISCHARGE Pending Labs Order Current Status Basic Metabolic Panel In process DETAILS OF HOSPITAL STAY REASON FOR ADMISSION Pain Back Weakness General Incontinence Urinary Ataxia Repeated Falls HOSPITAL COURSE Ms. Mosquera is hospitalized on [facility] Medicine ([facility]) for evaluation and management of [...] PM CDT DISCHARGE SUMMARY BRIEF OVERVIEW Hospital: [facility] Discharge Provider: Saul Pollard M.D. Primary Team: [facility] Medicine 4 ([facility]) Primary Care Providers: Elsewhere, Pcp [...] HOSPITAL COURSE Ms. Mosquera is hospitalized on [facility] Medicine 4 ([facility]) for evaluation and management of [...] AM CDT You were discharged from the [facility] Medicine 4 ([facility]) Service. Please identify this service [...] needed, Assistance with walking and moving around [facility] Discharge information provided on 06/16/2022 Contact information: [facility], [address], Tessie Arora - 06/17/2022 10:50 AM CDT Take a copy of this after visit summary to your appointment(s). [facility] - Tuesday --10:00 AM - Hospital Follow-Up with Dr. Blackwell, primary care provider, at [facility] RECOMMENDATIONS: * * [facility] You may have outpatient appointments at [facility] that changed during your hospitalization. Refer to your [facility] Patient Visit Guide (PVG) for the most current schedule of appointments and detailed instructions of tests/procedures. Call [phone], if you did not receive an PVG or need to CANCEL any [facility] appointment(s). AttachmentsThe following attachments cannot be sent through Care Everywhere. Pregabalin (By mouth) (Martiniquais)Furosemide (By mouth) (Martiniquais)documented in this encounter Medications at Time of [...] THC multivit-min/iron/folic/ Take 1 tablet by 0 pdf490 (HAIR, SKIN AND mouth daily. NAILS ADVANCED [...] Discussed patient's care with PT Outcome Measures [facility] Inpatient Short Form: Putting on and taking [...] Standardized Score: 44.27 Interpretation: Clinicians answer the [facility] Inpatient Short Form based on observed patient [...] Assistance with meal preparation, Assistance with financial controller, Assistance with shopping, Assistance with housekeeping, Assistance [...] M.D. - 06/17/2022 8:[address] [facility] 4 ([facility]) PROGRESS NOTE SUBJECTIVE No acute [...] / PLAN Ms. Mosquera is hospitalized on [facility] Medicine ([facility]) for evaluation and management of [...] Right Lives With: Alone Receives Help From: swimming pool attendant, Family, Friend(s) (Son lives in apt next to her.) ADL Assistance: Required assistance ADL Assistance Comments: Gets help from MINT WAFER DEPOSITOR for her bath/shower 3x/week, and for her meals, RN once every 2 weeks. IADL/Homemaking Assistance: Required assistance IADL/Homemaking Assistance Comments: Gets help for housecleaning Driving: Does not drive Driving Comments: Friend assists Occupational Role: On disability Occupational Role Comments: Previously worked at a [employer] Prior Mobility/Functional Transfers Level of Bennett: Needs assistance Gait Devices/Wheelchair Used Comments: No AD since shoulder sugery. Home Equipment Home Adaptive Equipment: Medical alert [...] Staff Present During Session: RN and transportation consultant Outcome Measures [facility] Inpatient Short Form: -[facility] Basic Mobility (V.2) How [...] a railing?: A Lot -[facility] Basic Mobility (V.2) Raw Score: 21 -[facility] Basic Mobility (V.2) Standardized Score: 45.55 Interpretation: Clinicians answer the [facility] Inpatient Short Form based on observed patient [...] patient wasunsure of a few. [facility] Changes to medications anticipated at discharge:pending hospital course Marlene Wu Pharm.D., R.Ph. [phone] Marlene Wu Pharm.D., R.Ph. - 06/16/2022 1:14 PM CDT Images from the original note were not included. Admission Medication History Note Medication list source: Patient + [facility] refill history (patient gets her scheduled [...] Take 150 mg by mouth every morning. qufulgegtn-qasozxjllqzbw-cihi (ESGIC) 50-325-40 mg per tablet Past Month [...] 1 spray as needed. 5 mg THC multivit-min/iron/folic/axh997 (HAIR, SKIN AND NAILS ADVANCED ORAL) Past [...] Cornelius). Per Ms. Mosquera, she lost her air reduction equipment operator months ago so has not been able to charge the device. Device was interrogated, however, it was unable to connect to the c programmer, likely due to the battery being depleted per patient report. veterinary technologist Mandy in room during interrogation and aware that device is off. Carley Mendez M.D. PGY-3, Anesthesiology and Perioperative Medicine documented in this encounter H&P Notes Renetta Michael M.D., M.S. - 06/15/2022 11:41 PM CDT Images from the original note were not included. [facility] Medicine 4 ([facility]) - ADMISSION NOTE Hospital Day [...] but left AMA. She presented to the [place] ED 06/15. In the ED, she was [...] Urinalysis Case will be staffed with supervising marketing regional consultant within 24 hours. Please page the [facility] Medicine 4 ([facility]) service pager at [phone] with questions or concerns. Renetta Michael M.D., M.S. PGY-3 [phone] Department of Internal Medicine Kiran Melton M.D. - 06/15/2022 12:05 AM CDT T Medicine 4 ([facility]) Admission Note SUBJECTIVE CHIEF COMPLAINT [...] overflow incontinence. She was seen in the [place] ER a few days ago where they obtained a CT head without evidence for new infarct. She left against medical advice and came to [place] for re-evaluation. Upon arrival to the ED, [...] Take 150 mg by mouth every morning. wgpdhaxmhg-umxoryvinojra-yxkq (ESGIC) 50-325-40 mg per tablet, Take 1 [...] 1 spray as needed. 5 mg THC multivit-min/iron/folic/qns292 (HAIR, SKIN AND NAILS ADVANCED ORAL), Take [...] / PLAN Ms. Mosquera is hospitalized on [place] [address] ([facility]) for evaluation and management of [...] life-threatening deterioration of the following conditions: ASSOCIATE DIRECTOR REGULATORY AFFAIRS failure or compromise Critical care was time [...] Bars Support from family Home-Health Care [facility] OBJECTIVE Apparel Embroidery Digitizer met with patient to discuss final discharge plans. Patient is agreeable to restart her home health nursing and PICTURE FRAMES INSPECTOR along with PT. Patient will have her friend transport her home today. ASSESSMENT / PLAN Assessment The patient appear to have insight into the patient's needs at this time and are planning appropriately for discharge needs. They report agreement with the below plan with no further questions at this time. Plan [facility] Georgette RN: [phone] Home health requesting an AVS discharge summary [...] if needs arise. Cris Landin R.N. 06/18/2022 [place], Claire Brumfield O.T., [facility] - 06/17/2022 9:53 AM CDT Occupational [...] (Dependence) Uncomplicated (HCC) Nicotine Dependence Unspecified Other Pad Tufter Current Drug Therapy Direct Infection Of Left [...] Right Lives With: Alone Receives Help From: swimming pool attendant, Family, Friend(s) (Son lives in apt next to her.) ADL Assistance: Required assistance ADL Assistance Comments: Gets help from MINT WAFER DEPOSITOR for her bath/shower 3x/week, and for her meals, RN once every 2 weeks. IADL/Homemaking Assistance: Required assistance IADL/Homemaking Assistance Comments: Gets help for housecleaning Driving: Does not drive Driving Comments: Friend assists Occupational Role: On disability Occupational Role Comments: Previously worked at a [employer] Prior Mobility/Functional Transfers Level of Bennett: Needs assistance Previous Transfer/Mobility Assistance Comments: Patient reports she asks for help often from her sonas he just lives next door. Gait Devices/Wheelchair Used Comments: No AD since shoulder [facility]. Home Living Type of Home: Apartment [...] quite lethargic, yet impulsive required assistance to [facility] gown and shoulder immobilizer to maximize [...] and patient's status was discussed Outcome Measures [facility] Inpatient Short Form: Putting on and taking [...] Assistance with meal preparation, Assistance with financial controller, Assistance with shopping, Assistance with housekeeping, Assistance [...] Treatment Time (min): 37 min Claire Mandujano OAna, MOT Kristie Landin R.N. - 06/16/2022 2:43 PM CDT Discharge Planning Assessment SUBJECTIVE Assessment Information Referral Source: railroad signal and switch operator Referral Reason: Discharge Planning Primary Language: Martiniquais Dry Cleaning Checker Services Used: No Person(s) present during interview: [...] Pleasant, Calm Communication: Talks, Understands speaking, Understands Martiniquais Shopping: Needs assistance Transportation: Support from family Medication Management: Independent Housekeeping: Dependent Meal Prep: Needs assistance Managing Finances: Needs assistance Assistive Devices: Cane, Tub/shower chair/bench Services/Resources: Home health Agency Name: Home health reconnect Services Provided: fci twice monthly, PICTURE FRAMES INSPECTOR 3 times a week Baseline Services/Resources Primary care clinic and provider: ELSEWHERE, PCP Services/Resources: Home health Additional Resources: none Anticipated Needs Functional Status: Bathing, Dressing, Grooming/hygeine, Meal preparation, Medication set-up/administration, Housekeeping, Shopping, Transportation use (drive car, use taxi/bus) Assistive Devices: Tub/shower chair/bench, Grab bars - toilet, Grab bars - wall Services/Resources: Home health Agency Name: Home health reconnect Services Provided: fci twice monthly, PICTURE FRAMES INSPECTOR 3 times a week Anticipated Modifications to the Patient's Home: Grab Bars Transportation Needs: Support from family Does the patient need discharge transport arranged?: No Phone Number for Ride/Caregiver: son or daughter Anticipated Discharge Destination: Home-Health Care [facility] ASSESSMENT / PLAN Assessment: The railroad signal and switch operator met with Angie Mosquera to discuss her current hospitalization and home goingneeds. The patient was unaccompanied. The patient was a reliable historian. The role of railroad signal and switch operator was reviewed. The patient reviewed her prior level of care and support system. The patient receives support from her daughter, son, and home care staff . The patient described her living environment as a apartment with elevator access with level entry. Housekeeping, grocery shopping, meal prep, and other household responsibilities have previously been completed by patient and patient's son. railroad signal and switch operator discussed the patient's potential needs at [facility] based on their home setting, [...] ADL's. She currently has home health through [facility] for fci twice monthly and [facility] 3 times a week for [...] identified the following as their current vendor(s): [facility]. After reviewing the patient's chart and meeting with the patient, the railroad signal and switch operator deemed the LACE+/readmission questions were appropriate. [...] readmission could not have been prevented. The railroad signal and switch operator will share this information with the care team. The patient reports understanding that she will dismiss from the hospital when medically stable. Pending hospital course and medical readiness, no barriers to dismissal have been identified at this time. Plan: The patient agrees with the following plan. Patient's anticipated discharge disposition is: Home with Home Healthcare Reconnected: [facility] Transportation upon dismissal will be provided by family--son or daughter . railroad signal and switch operator recommended a shower seat, grab bars, home delivery of groceries, and reaching out to family, friends, and neighbors for assistance. railroad signal and switch operator provided information regarding the dismissal process and the Advance Health Care Planning: Making Your Wishes Known [id number] booklet along with education on the benefits of completing an advance directive and resources that may assist them in this process. The patient sharedno further questions or concerns regarding advance directives. The patient appears to have an understanding of how to complete an advance directive and reported awareness of resources to assist them. railroad signal and switch operator placed or requested the following hospital-based consult orders and/or referrals: PT/OT. railroad signal and switch operator will continue to assess for homegoing needs with the interdisciplinary team. railroad signal and switch operator encouraged the patient to reach out with any questions/concerns. Patient to discharge with home health care. [facility] Georgette RN: [phone] Home health requesting an AVS discharge summary [...] arise. Signed by: Cris Landin R.N. 06/16/2022 Nkiki Cook APRN C.N.Hema, M.S. - 06/16/2022 11:01 [...] Prescriptions are provided by pain management through [facility] and her PCP Dr. [...] lumbosacral radicular pain, last reportedly revised at [facility] in 2019. The initial implant date is unknown. She had turned the device off for one her surgeries, then misplaced the c programmer. She has received a new c programmer, but has not gotten to using the new device. It is at her home. She thinks she has not used the SCS for several months. CURRENT MEDICATIONS: Acetaminophen 1 g four times a day Kzitrectnghqf-nsepwrmq-dvmmxieyv-Lipoderm cream twice a day Diclofenac 1% gel [...] mg by mouth every morning. Past Week pefopzycdg-hocwnxzfjbczo-nrbi (ESGIC) 50-325-40 mg per tablet Take 1 [...] as needed. 5 mg THC Past Week multivit-min/iron/folic/ydq637 (HAIR, SKIN AND NAILS ADVANCED ORAL) Take [...] Daily Given, 1,000 mg at 06/16 1345 rqddhugaemney-kxshknak-rncolsoyb in Lipoderm 2%-0.5%-2% cream 1 g 1 [...] PRN Given, 100 mg at 06/16 921 bjiwyfqntc-pylthomsetuqv-tuvr 50-325-40 mg per tablet 1 tablet (ESGIC) [...] 82 Vitals: 06/15/22 1659 06/15/22 1850 06/15/22 18506/15/22 2046 Pain Score: 10 - Worst possible pain [...] : Gini Newberry R.N.) Respiratory Depth/Rhythm: Regular (06/15/22 2208 : Asia Cortez RBetsy, [facility]) PAIN PHYSICAL EXAM GENERAL: Pleasant, 57 [...] longitudinally with an outpatient pain provider at [facility]. Though she is on several ASSOCIATE DIRECTOR REGULATORY AFFAIRS acting medications that could increase the risk [...] organic cause for symptoms - work with [employer] to get her SCS therapy active in the outpatient setting Discussed with Pain Necktie Turner Dr. Kaushik Gustafson. Thank you for allowing the Inpatient Pain Service to be a part of Angie Mosquera's care. The [facility] Inpatient Pain Service will sign off. Please page [phone] with questions. Anthony Shepard PAna, Juice.P.T., C.S.C.S. - 06/16/2022 10:10 AM CDT Physical [...] (Dependence) Uncomplicated (HCC) Nicotine Dependence Unspecified Other Pad Tufter Current Drug Therapy Direct Infection Of Left [...] Right Lives With: Alone Receives Help From: swimming pool attendant, Family, Friend(s) (Son lives in apt next to her.) ADL Assistance: Required assistance ADL Assistance Comments: Gets help from MINT WAFER DEPOSITOR for her bath/shower 3x/week, and for her meals, RN once every 2 weeks. IADL/Homemaking Assistance: Required assistance IADL/Homemaking Assistance Comments: Gets help for housecleaning Driving: Does not drive Driving Comments: Friend assists Occupational Role: On disability Occupational Role Comments: Previously worked at a [employer] Prior Mobility/Functional Transfers Level of Bennett: Needs assistance Gait Devices/Wheelchair Used Comments: No AD since shoulder sugery. Home Equipment Home Adaptive Equipment: Medical alert [...] surgicalmask, eye protection, and gloves Outcome Measures AM-[facility] Inpatient Short Form: AM-[facility] [...] a railing?: A Lot AM-[facility] Basic Mobility (V.2) Raw Score: 20 AM-PAC Basic Mobility (V.2) Standardized Score: 43.99 Interpretation: Clinicians answer the AM-[facility] Inpatient Short Form based [...] independent with ADLs but does have a MINT WAFER DEPOSITOR 3 times per week to assist with [...] She now presented to the ED at [facility] for a second opinion. Review of Systems: [...] (WELLBUTRIN XL) 150 mg, oral, Every morning cdebuhcekl-uhaxsikqzgzgm-tczw (ESGIC) 50-325-40 mg per tablet 1 tablet, [...] 1 spray as needed. 5 mg THC multivit-min/iron/folic/nsq869 (HAIR, SKIN AND NAILS ADVANCED ORAL) 1 [...] PM CDT Care of patient transferred to md by Scooter Tony. Disposition pending MRI with [...] chronic pain and she lost the air reduction equipment operator for her [employer] SCS device several months ago. An MRI [...] Garcia M.D. 07/02/22 1331 Scooter Tony APRN CBrittonN.P. - 06/15/2022 2:48 PM CDT SUBJECTIVE CHIEF [...] relieve her symptoms she was seen in [place] ER few days ago and had no [...] as of 06/16/22 0848 TueJun 15, 2022 7046 Given patient's history exam I do have concern for possible underlying cauda equina given her recent falls increased back pain some lower leg weakness this could be secondary to other injury thus difficult to assess and urinary incontinence. Will page Neurology have them evaluate further. [id number] Patient continues to be a poor historian [...] medicine. 2025 Patient will go back to [place] awaiting a MRI and then disposition. 2025 [...] is a the provider I spoke with.Pager #[phone] Final Diagnoses: as of 06/16/22 0848 Weakness [...] a recent fall. Pt was seen in [place] yesterday. Ct scan performed. Pt is here for a second opinion. Elaine Winn R.N. 06/15/22 1108 documented in this encounter Miscellaneous Notes Hospital Course - Maria Haynes M.D. - 06/16/2022 7:30 AM CDT Ms. Mosquera is hospitalized on [facility] Medicine 4 ([facility]) for evaluation and management of [...] Referral Routine Weakness G eneral Ordered: PT ([facility]) Pain Back 06/17/2022 Ataxia Repeated Falls Debility [...] City/State/ZIP Code Phon e Number [facility] - [address] [place], [place] [address] [facility] [place] [address] [facility] [address] Basic [...] 06/18/2022 DTL Black/ mL/min/BSA 8:56 AM CDT Lao Comment: ----ADDITIONAL INFORMATION---- Estimated GFR calculated using [...] City/State/ZIP Code Phon e Number [facility] - [address] [place], [place] [address] [facility] [place] [address] [facility] [address] MR Thoracic [...] 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 The citizen potawatomi intraocular lenses are absent . 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 The citizen [place]atom[place] intraocular lenses are absent . 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 The citizen [place] intraocular lenses are absent . 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 The citizen [place] intraocular lenses are absent . 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 The citizen [place] intraocular lenses are absent . 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 The citizen pot[place]atom[place] intraocular lenses are absent . Mild mucosal [...] at L1-2 through L3-4. Scooter Tony APRN C.N.P. IMG MRI PROCEDURES (ABNORMAL) CBC without Differential (06/17/2022 8:00 AM CDT) [facility] gist Method Time Signature Hemoglobin 10.5 [...] City/State/ZIP Code Phon e Number [facility] - 200 [place], [place] [address] [facility] [place] [address] Laboratories-[facility] [address] [facility] Basic Metabolic Panel (06/17/2022 8:00 AM [...] 06/17/2022 DTL Black/ mL/min/BSA 9:34 AM CDT Lao Comment: ----ADDITIONAL INFORMATION---- Estimated GFR calculated using [...] City/State/ZIP Code Phon e Number [facility] - [phone] [place] [address] (ABNORMAL) Dipstick, Urine (06/16/2022 9:32 AM CDT) [...] M.D. LAB URINE ORDERABLES Performing Organization Address City/[facility]/ZIP Code Phon e Number [facility] - [address] Osmolality, Urine (06/16/2022 9:32 AM CDT) P athologist Signature Osmolality, U 745 150 - 1150 06/16/2022 DTL mOsm/kg 11:17 AM CDT Specimen Anatomical Collection Method Collection Time Receive d Time (Source) Location / / Volume Laterality Urine 06/16/2022 9:32 AM 2 CDT 10:39 AM CDT Maira Haynes M.D. LAB URINE ORDERABLES Performing Organization Address City/[facility]/ZIP [facility] Phon e Number [facility] - [address] [place] [address] 05 [place] [address] pH, Random, Urine (06/16/2022 9:32 AM CDT) P athologist Signature pH, Random, U 5.0 4.5 - 8.0 06/16/2022 DTL 11:17 AM CDT Specimen Anatomical Collection Method Collection Time Receive d Time (Source) Location / / Volume Laterality Urine 06/16/2022 9:32 AM 2 CDT 10:39 AM CDT Maira Haynes M.D. LAB URINE ORDERABLES Performing Organization Address City/[facility] Phon e Number [facility] - [address] (ABNORMAL) Microscopic Manual (06/16/2022 9:32 AM [...] M.D. LAB URINE ORDERABLES Performing Organization Address City/[facility]/ZIP [facility] Phon e Number [facility] - 200 [place], [place] [address] [place] [address] [place] [address] (ABNORMAL) Urinalysis with Microscopic: Urine, Catheter [...] M.D. LAB URINE ORDERABLES Performing Organization Address City/[facility] Phon e Number [facility] - [address] [place] [address] [facility] [place] [address] [facility] [address] [facility] Vitamin B12 Assay (06/16/2022 7:31 AM [...] City/State/ZIP Code Phon e Number [facility] - [address] [place] [address] Hemoglobin A1c (06/16/2022 7:31 AM CDT) P athologist Signature Hemoglobin A1c, 4.9 4.0 - 5.6 06/16/2022 DTL B % 8:13 AM CDT Specimen Anatomical Collection Method Collection Time Receive d Time (Source) Location / / Volume Laterality Blood (Blood, 06/16/2022 7:31 AM 06/16/20 7:51 Venous) CDT AM CDT Kiran Melton M.D. LAB BLOOD ADD-ON Performing Organization Address City/[facility] Code Phon e Number [facility] - [id number] [place] [address] (ABNORMAL) CBC without Differential (06/16/2022 7:31 AM [...] City/State/ZIP Code Phon e Number [facility] - 200 [place], [place] [address] [facility] [place] [address] [facility] [address] (ABNORMAL) [...] 06/16/2022 DTL Black/ mL/min/BSA 8:22 AM CDT Lao Comment: ----ADDITIONAL INFORMATION---- Estimated GFR calculated using [...] M.D. LAB BLOOD ADD-ON Performing Organization Address City/State/[facility] Code Phon e Number [facility] - [address] [place] [address] [facility] [place] [address] [facility] [address] [facility] Critical Care (06/15/2022 8:47 PM CDT) Narrative Scooter Tony APRN, C.N.P. - 06/15 8:47 PM CDT Scooter Tony APRN, C.N.P. ? 06/15/2022 ??8:47 PM Critical Care Date/Time: 06/15/2022 8:47 PM Performed by: Scooter Tony APRN, C.N.P. Authorized by: Scooter Tnoy APRN, C.N.P. Critical care provider statement: Critical care total time (minutes): 45 Critical care time was exclusive of: sep arately billable procedures and treating other patients Critical care was necessary to treat or prevent imminent or life-threatening deterioration of the fo llowing conditions: ASSOCIATE DIRECTOR REGULATORY AFFAIRS failure or compromise Critical care was time spent personally by me on the following activities: ordering and review of radiographic stud ies, ordering and review of laboratory studies, discussions with [facility] provider, discussions with consultants, examination of patient, rev iew of old charts and re-evaluation of patient's condition Scooter Tony APRN, C.N.P. PROCEDURE/MINOR SURGICA L ORDERABLES SARS Coronavirus 2, PCR Rapid, V Symptomatic (06/15/2022 7:51 PM CDT) [facility] Method Time Signature SARS CoV-2, Undetected Undetected 06/15/2022 [facility] PCR, Rapid, V 8:23 PM CDT Comment: ----ADDITIONAL INFORMATION---- This RT-PCR test was performed using the Tita SARS-CoV-2 and Influenza A/B Reagent assay from [employer] which has received Emergency Use Authori zation(EUA) by the U.S. Food and Drug Administration . Fact sheets for this Emergency Use Autho rization (EUA) assay can be found at the following link s: For Healthcare Providers: https://www.fda.gov/media/821216/downloa d For Patients: https://www.fda.gov/media/255874/downloa d SARS Coronavirus 2, Source, Rapid Swab, Nasopharynx 06/15/2022 7:58 PM CDT [facility] Specimen Anatomical Collection Method Collection Time Receive d Time (Source) Location / / Volume Laterality Varies 06/15/2022 7:51 PM 7:58 (Nasopharynx) CDT PM CDT Scooter Tony APRN, C.N.P. LAB MICROBIOLOGY - GENE RAL ORDERABLES Performing Organization Address City/State/[facility] Code Phon e Number [facility] - [address] [place] [address] 05 [place] [address] [facility] [address] [facility] CT Head Neck Angiogram with IV [...] 2H/6H, 5th Gen (06/15/2022 2:48 PM CDT) [facility] Method Time Signature Troponin T, 2 <6 <=10 ng/L 06/15/2022 [facility] hr, 5th gen 3:54 PM CDT 2H Delta 0 ng/L 06/15/2022 [facility] 3:54 PM CDT 2H Delta Not Changing 06/15/2022 [facility] Interp 3:54 PM CDT Troponin T, 6 CANCELED ng/L [facility]20[facility], 5th gen 3:54 PM CDT Comment: Result canceled by the ancillar y. Specimen Anatomical Collection Method Collection Time Receive d Time (Source) Location / / Volume Laterality Blood (Blood, 06/15/2022 2:48 PM 06/15/20 3:21 Venous) CDT PM CDT Narrative [facility] - [facility] - 06/15/2022 3:54 PM CDT Specimen Information: Specimen ID: [id number] Specimen Type: Blood Specimen Collection Start Date: 06/15/20 ??2:48 PM Specimen Received Date: 06/15/2022 ??3:2 1 PM Specimen ID: [id number] Specimen Type: Blood Specimen Collection Start Date: 06/15/20 ??3:53 PM Specimen Received Date: 06/15/2022 ??3:5 3 PM Demarcus Ernst M.D. LAB BLOOD TROPONIN Performing Organization Address City/State/ZIP Code Phon e Number [address] [address] [place] [address] [facility] [address] [facility] DX Hip And Pelvis Left 2-3 [...] Signature Ventricular Rate 58 BPM MUSE ECG/Min SD Interval 154 ms MUSE QRSD Interval 102 ms MUSE QT Interval 442 ms MUSE QTC Interval 433 ms MUSE P [place] 48 degrees MUSE R [place] -1 degrees MUSE T Wave [place] 38 degrees MUSE Specimen Anatomical Collection Method [...] M.D. LAB BLOOD TROPONIN Performing Organization Address City/[facility] Phon e Number [facility] - [address] [place] [address] (ABNORMAL) Hepatic Function Panel (06/15/2022 12:37 [...] M.D. LAB BLOOD ADD-ON Performing Organization Address City/[facility] Phon e Number [facility] - [address] [place] [address] [address] [facility] [place] [address] Basic Metabolic Panel (06/15/2022 12:36 PM [...] CDT eGFR-Black/Afric >90 >=60 06/15/2022 [facility] an Lao mL/min/BSA 1:34 PM CDT Comment: ----ADDITIONAL INFORMATION---- [...] City/State/ZIP Code Phon e Number [facility] - [facility] [place], [place] [address] [facility] [place] [address] [facility] 200 [facility] (ABNORMAL) CBC with Differential, Blood (06/15/2022 12:36 PM CDT) [facility] gist Method Time Signature Hemoglobin 10.4 [...] City/State/ZIP Code Phon e Number [facility] - 200 [place], [place] [address] [place] [address] [facility] 200 [place] [address] [facility] [address] [facility] Prothrombin Time (PT) (06/15/2022 12:34 PM CDT) P athologist Signature Prothrombin 10.2 9.4 - 12.5 06/15/2022 [facility] Time, P sec 1:10 PM CDT INR 0.9 0.9 - 1.1 06/15/2022 [facility] 1[facility]10 PM CDT Comment: ----ADDITIONAL INFORMATION---- [...] City/State/ZIP Code Phon e Number [facility] - 200 [place], [place] [address] [place] [address] Laboratories-[address] Interpretation of Outside CT Spine (06/15/2022 [...] Anatomical Region Laterality Modality Head, Neuroradiology [facility], Neuroradiology ARZ [facility], N/A Computed Tomography Neuroradiology F[facility], Other Specimen (Source) Anatomical Collection Method [...] Given 06/17/2022 9:20 AM CDT 1,000 mg qhfgsnnseitxk-eahzcshw-fiiplkfev in Lipoderm Given 06/18/2022 10 :23 AM [...] Given 06/16/2022 9:16 AM CDT 150 mg tyzwfjrfim-ytokrpzjlgpuo-ibkj 50-325-40 mg Given 06/17 6:03 PM CDT [...] 2057 (Given - Provider: Erwin Tello RBrittonNBritton) dmxbkcptdcqwq-oresbdxa-ehofydflw in Lipoderm 2%-0.5%-2 % cream 1 g [...] Newberry R.N.) 0919 (Given - Provider: Gini eNwberry R.N.) 1020 (G iven - Provider: Raquel [...] (COMPLETED) 0257 (Given - Provider: Tiffanie Mills RBrittonNBritton) 2 mg, oral, Once, On Tue06/16/22 at 0230, For 1 dose lamoTRIgine tablet 200 mg (LaMICtaL) 09 (Given - Pro vider: Gini Newberry R.N.)2108 (Given - Provider: Sharifa TaylorNBritton) 918 (Given - Provider: Gini Newberry R.N.)2057 (Given - Provider: Erwin Tello RBrittonNBritton) 1019 (Given - Provider: Raquel Guajardo R.N.) 200 [...] Husain R.N.) 2058 (Given - Provider: Erwin Jose Guadalupe S Lagrana, R.N.) 2 mg, oral, Daily at bedtime, [...] Newberry R.N.)2250 (Given - Provider: Laquita Calero RBrittonNBritton) 923 (Given - Provider: Gini Newberry R.N.)2058 [...] 1024 (G iven - Provider: Raquel Guajardo RBetsy) 500 mg, oral, Daily, First dose on Tue at 0900, Drug Monitoring Program: Pharmacist to adjust medication dosing based on indication and drug clearance factors., Indications: Chickenpox/herpes zoster zonisamide capsule 300 mg (ZONEGRAN) 0916 (Given - Pro vider: Gini Newberry R.N.)2107 (Given - Provider: Rufina Husain, R.N.) 0920 (Given - Provider: Gini Newberry [...] (KEREN PERRIN) 0921 (Giv en - Provider: iGni Newberry R.N.) 0339 (Given - Provider: Laquita rosa R.N.)0920 (Given - Provider: Gini Newberry R.N.)2204 (Given - Provider: Erwin Tello RBetsy) 0515 (Given - Provider: Erwin gimenez R.NBritton) 100 mg, oral, 3 times daily PRN, cough, Starting on Tue06/16/22 at 0107, Swallow whole. Do NOT crush, chew or open capsule. rvtvpszqrx-pkuecwukjjxts-wtym 50-325-40 mg per tablet 1 tablet (ESGIC) 1359 (Given - Provider: Gini Newberry R.N.)2108 (Given - Provider: Rufina Husain RBrittonNBritton) 1038 (Given - Provider: Kennedi Cabrera APRN, ASSOCIATE DIRECTOR REGULATORY AFFAIRS, M.S.N.)1803 (Given - Provider: Christiano Moon.Milad) 1 tablet, oral, Every 6 hours PRN, migraine, Starting on 05/29 at 0107 diphenhydrAMINE-zinc acetate 1 % cream 1 application ( BENADRYL) 1431 (Given - Provider: Gini Newberry R.N.) 1 application, topical, 4 times daily SD N, itching, Starting on Tue06/16/22 at 0306 meclizine tablet 25 mg (ANTIVERT) 0920 (Given - Provid er: Gini Newberry R.N.) 0920 (Given - Provider: Gini Newberry R.N.)220 (Given - Provider: Erwin Tello R.N.) 0515 (Given - Provider: Erwin gimenez R.Milad) 25 mg, oral, Every 6 hours PRN, [...] 0544 (Given - P rovider: Tiffanie Mills RBrittonN.)0959 (Given - Provider: Gini Newberry R.N.)1345 (Given - Provider: Gini Newberry R.N.)1803 (Given - Provider: Gini Newberry R.N.) 0006 (Given - Provider: Laquita Calero R.N.)0919 (Given - Provider: Gini Newberry R.N.)1803 (Given - Provider: Gini Newberry R.N.)2204 (Given - Provider: Erwin Tello R.N.) 0515 (Given - Provider: Erwin gimenez R.NBritton)1024 (Given - Provider: Raquel Guajardo R.NBritton) 10 mg, oral, Every 4 hours PRN, [...] COMPLETED) 1642 (Given - Provider: Sapphire Verma, FIELD CASHIER, SPORTS ANCHOR, DNAP) 1 patch, transdermal, Administer over 72 [...] as of this encounter Care Teams Store Cashier Relationship Specialty Start Date End Date Elsewhere, Pcp PCP - General Family Medicine 12/25/21 documented as of this encounter
--- OUTSIDE RECORDS SUMMARY | 2022-09-20 14:05 | XMS_ITS | Encounter Summary ---
:1965 Author Organization [facility] Address [address] [place] [address] Care Team Providers Name Role Phone Elsewhere, Pcp Primary Care Provider Unavailable Reason for Visit Reason Comments Followup [facility] Patient Encounter Details Date Type Department Care Team Description 06/15/2022 Clinical Communication Department of [facility], Robert gay ([facility] Neurology in [place], MBrittonDBritton Patient/) [place], [facility] [place], [place] [address] [place] [address] [place], [place] [phone] (Work) [phone] Social History Tobacco Use Types Packs/Day Years [...] She did end up being seeing in [place] and had a CT scan. I told her to followup with them and make sure that the images are sent here for Dr. Diehl to review. Caller was made aware of the two- to four-business day call turnaround time. Date last seen: 11/17/2021 Future appointment: None scheduled Dx: Stroke Cerebrovascular Accident Personal History Allyssa Amaya, Finishing Range Supervisor 06/15/22 8:18 AM CDT documented in this encounter Plan of Treatment Not on filedocumented as of this encounter Visit Diagnoses Not on filedocumented in this encounter Additional Health Concerns Assessment Noted Time PHQ-9 Depression Total Score: 16 02/11/2021 12:00 AM C DT documented as of this encounter Care Teams Health Aide Relationship Specialty Start Date End Date Elsewhere, Pcp PCP - General Family Medicine 12/25/21 documented as of this encounter
--- OUTSIDE RECORDS SUMMARY | 2022-09-20 14:05 | XMS_ITS | Encounter Summary ---
:1965 Author Organization [facility] Address 200 [place] [address] Care Team Providers Name Role Phone Elsewhere, Pcp Primary Care Provider Unavailable Encounter Details Date Type Department Care Team Description 06/17/2022 Orders Only RST HIM Latrice, Chronic Pain Syndrome (Prima ry Dx); [address] [facility] Lilian Hughes Transient Ischemic Attack; [place], [place] [address] [facility] Fibromyalgia [address] [place] [address] Social History Tobacco Use Types Packs/Day Years [...] you attend holiness or Patient refused 2021 sabianism services? Do [...]
--- OUTSIDE RECORDS SUMMARY | 2022-09-20 14:05 | XMS_ITS | Encounter Summary ---
:1965 Author Organization [facility] Address 200 [place] [address] Care Team Providers Name Role Phone Elsewhere, Pcp Primary Care Provider Unavailable Reason for Visit Reason Comments Medication Question Encounter Details Date Type Department Care Team Description 06/21/2022 Clinical Communication RST ANDREW Pollard, Medication Question 200 [facility] Lilian Hughes [place], [place] 200 [facility] [address] [place] [address] Social History Tobacco Use Types Packs/Day Years [...] you attend sikh or Patient refused 2021 restorationism services? Do [...] 1:12 PM CDT Prescriptions are sent to [facility] Telephone Encounter - Brenda Wright - 06/23/2022 3:02 PM CDT The patient called again re: her pregabalin prescription. She did not pick it up at the hospital pharmacy since she did not know it was there. Her regular pharmacy is [facility] in [place]. A newprescription needs to be sent to [facility] in [place]. The patient is out of this medication. Please call the patient if any questions: . She has been calling and has not heard from anyone re: this. 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 Brenda Jefferson [phone] documented in this encounter Plan of Treatment Not on filedocumented as of this encounter Visit Diagnoses Not on filedocumented in this encounter Additional Health Concerns Assessment Noted Time PHQ-9 Depression Total Score: 16 02/11/2021 12:00 AM C DT documented as of this encounter Care Teams Bar Attendant Relationship Specialty Start Date End Date Elsewhere, Pcp PCP - General Family Medicine 12/25/21 documented as of this encounter
--- OUTSIDE RECORDS SUMMARY | 2022-09-20 14:05 | XMS_ITS | Encounter Summary ---
:1965 Author Organization [facility] Address [address] [place] [address] Care Team Providers Name Role Phone Elsewhere, Pcp Primary Care Provider Unavailable Encounter Details Date Type Department Care Team Description 06/15/2022 Ancillary Procedure Department of Demarcus Ernst, Radiology in [place], [place] [address] [place] [phone] (Wo rk) Social History Tobacco Use Types [...] you attend restorationism or Patient refused 2021 worship services? Do [...] Modality Spine, Neuroradiology [facility], Neuroradiology [facility], [...] documented as of this encounter Care Teams Command Center Analyst Relationship Specialty Start Date End Date Elsewhere, Pcp PCP - General Family Medicine 12/25/21 documented as of this encounter
--- OUTSIDE RECORDS SUMMARY | 2022-09-20 14:05 | XMS_ITS | Encounter Summary ---
:1965 Author Organization [facility] Address [address] [place] [address] Care Team Providers Name Role Phone Elsewhere, Pcp Primary Care Provider Unavailable Reason for Visit Reason Comments Pregabalin prescription Encounter Details Date Type Department Care Team Description 06/22/2022 Clinical Communication RST ANDREW Pollard, Pregabalin [address] [facility] Lilian Hughes prescription [place], [place] 200 [facility] [address] [place] [address] Social History Tobacco Use Types Packs/Day Years [...] Maritza Carrillo - 06/22/2022 12:18 PM CDT [facility] called. The patient had a prescription for Pregabalin sent to one of the [place] pharmacies on 06/17/22 and she never picked it up. [facility] would like the prescription sent to them since they provide the prescriptions to the patient. Please phone or send a new prescription for Pregabalin 300 mg to [facility] in [place]. Please do as soon as able, the patient is out of this medication. Thank you, Maritza [phone] documented in this encounter Plan of Treatment Not on filedocumented as of this encounter Visit Diagnoses Not on filedocumented in this encounter Additional Health Concerns Assessment Noted Time PHQ-9 Depression Total Score: 16 02/11/2021 12:00 AM C DT documented as of this encounter Care Teams Jackhammer Operator Relationship Specialty Start Date End Date Elsewhere, Pcp PCP - General Family Medicine 12/25/21 documented as of this encounter
--- OUTSIDE RECORDS SUMMARY | 2022-09-20 14:05 | XMS_ITS | Encounter Summary ---
:1965 Author Organization [facility] Address [address] [place] [address] Care Team Providers Name Role Phone Elsewhere, Pcp Primary Care Provider Unavailable Encounter Details Date Type Department Care Team Description 06/15/2022 Ancillary Procedure Department of Demarcus Ernst, Radiology in [place], [place] [address] [place] [phone] (Wo rk) Social History Tobacco Use Types [...] you attend protestant or Patient refused 2021 synagogue services? Do [...] Modality Spine, Neuroradiology [facility], Neuroradiology [facility], N/A Computed Tomography Neuroradiology [facility], [...] documented as of this encounter Care Teams Braille And Talking Books Clerk Relationship Specialty Start Date End Date Elsewhere, Pcp PCP - General Family Medicine 12/25/21 documented as of this encounter
--- OUTSIDE RECORDS SUMMARY | 2022-09-20 14:05 | XMS_ITS | Encounter Summary ---
:1965 Author Organization [facility] Address 200 [place] [address] Care Team Providers Name Role Phone Elsewhere, Pcp Primary Care Provider Unavailable Reason for Visit Reason Comments Post-op Problem Encounter Details Date Type Department Care Team Description 06/03/2022 Clinical Communication Department of Cyrus Polk st-op Problem Orthopedic Surgery in [place] Sou[place], [place] [address] [place] [address] 200 [place] [address] [phone] Social History Tobacco Use Types Packs/Day Years [...] you attend quaker or Patient refused 2021 jain services? Do [...] Cyrus Polk M.D. CT CT Job ID: [id number] documented in this encounter Miscellaneous Notes Telephone [...] bent forward again. Please call her at [phone] to discuss. documented in this encounter Plan of Treatment Not on filedocumented as of this encounter Visit Diagnoses Not on filedocumented in this encounter Additional Health Concerns Assessment Noted Time PHQ-9 Depression Total Score: 16 02/11/2021 12:00 AM C DT documented as of this encounter Care Teams Music Sound Light Technician Relationship Specialty Start Date End Date Elsewhere, Pcp PCP - General Family Medicine 12/25/21 documented as of this encounter
--- OUTSIDE RECORDS SUMMARY | 2022-09-20 14:06 | XMS_ITS | Encounter Summary ---
:1965 Author Organization [facility] Address [address] [place] [address] Care Team Providers Name Role Phone Elsewhere, Pcp Primary Care Provider Unavailable Encounter Details Date Type Department Care Team Description 05/18/2022 - Hospital Encounter [facility] Jam Direct In fection Of Left Shoulder In Infectious And Parasitic Diseases Classified Elsewhere (HCC) (Primary Dx); 05/20/2022 Hospital, Hinduismliliam Souza M.D. Shoulder Joint Disorder Left; [place], [facility] [address] [facility] Pain Shoulder Left; Building, [place], [place] Primary Os teoarthritis Shoulder Left Floor [phone] [address] [facility] [phone] [place], [place] (Work) [phone] Social History Tobacco Use [...] you attend yazidism or Patient refused 2021 jewish services? Do [...] AM CDT DISCHARGE SUMMARY BRIEF OVERVIEW Hospital: [facility] Discharge Provider: Cyrus Polk M.D. Primary [...] RST ROEI OR DISCHARGE DISPOSITION Home-Health Care [facility] [6] ACTIVE ISSUES REQUIRING FOLLOW UP This document serves as a prescription to continue physical therapy, medications, and labs or x-raysif ordered/required. If you have any questions or concerns about surgery or upcoming appointments, please do not hesitateto contact Dr. Polk's office at [phone] during regular business hours (8am-5pm M-F). For emergencies on the weekend or after hours, you may contact Dr. Polk's service via the [facility] excelsior machine operator at [phone]. Details for your 6 week follow-up appointment [...] to: Cyrus Polk MD Dept of Orthopedics [address], [address] None OUTPATIENT FOLLOW UP For appointment details [...] M.D.Jenna Zaldivar M.D.Markos, James R, M.D. [facility] OR Angie Mosquera was taken [...] THC multivit-min/iron/folic/ Take 1 tablet by 0 [id number] (HAIR, SKIN AND mouth daily. NAILS ADVANCED [...] bedtime. acetaminophen (TYLENOL) Take 2 capsules 0 01/01/ [...] mask during therapy session: yes Outcome Measures -[facility] Inpatient Short Form: AM-[facility] Basic Mobility (V.2) How much help [...] Standardized Score: 41.05 Interpretation: Clinicians answer the -[facility] Inpatient Short Form based on observed [...] 6 pm, please page Jam service at [phone] For urgent matters from 6 pm until 6 am, please page Arthur Smallwood at [facility] [phone] Jane Nguyen Pharm.D., R.Ph. - 05/19/2022 8:12 [...] at this time. Jane Nguyen Pharm.D., R.Ph. [phone] Kaushik Cadena M.D. - 05/19/2022 7:34 AM [...] (H) CBC with Differential, Blood Collection Time: 06/22/22 3:26 AM Result Value Hemoglobin 7.6 (L) [...] 6 pm, please page Jam service at [phone] For urgent matters from 6 pm until 6 am, please page Ortho House at [facility] [phone] Paco Valentine - 05/18/2022 9:47 AM CDT Encounter: AM Admit Deanna Tradition: No jewish affiliation. Ms. Mosquera did not express any spiritual needs at this time. Plan: Will remain available for spiritual care as needed or requested. [phone] ([facility]). Rodrigo Preston, Pharm.D., R.Ph. - 05/18/2022 9:17 [...] Take 150 mg by mouth every morning. yqmogwvyqc-lewdhdqeyrfid-hcsf (ESGIC) 50-325-40 mg per tablet Past Week [...] 1 spray as needed. 5 mg THC multivit-min/iron/folic/uzj256 (HAIR, SKIN AND NAILS ADVANCED ORAL) Past [...] (HCC) ??? Nicotine Dependence Unspecified ??? Other Retirement Current Drug Therapy ??? Direct Infection Of [...] Profile Lives With: Alone Receives Help From: pump attendant, Family, Friend(s) ADL Assistance: Required assistance ADL Assistance Comments: Gets help from PATIENT RELATIONS REPRESENTATIVE for her bath/shower 3x/week, and for her meals IADL/Homemaking Assistance: Required assistance IADL/Homemaking Assistance Comments: Gets help for housecleaning Driving: Does not drive Driving Comments: takes her cane and medical alert with her. Occupational Role: On disability Occupational Role Comments: Previously worked at a [employer] Prior Mobility/Functional Transfers Level of [place]: Needs assistance Previous Transfer/Mobility Assistance Comments: Patient [...] mask during therapy session: yes Outcome Measures AM-[facility] Inpatient Short Form: AM-PAC Basic Mobility [...] 3-5 steps with a railing?: A Little [facility] Basic Mobility (V.2) Raw Score: 18 [facility] Basic Mobility (V.2) Standardized Score: 41.05 Interpretation: Clinicians answer the [facility] Inpatient Short Form based on observed [...] Nurse Referral Reason: Discharge Planning Primary Language: New Zealander Sales Associate Key Holder Services Used: No Person(s) present during interview: Person(s) Present During Interview: patient History of Present Illness #1 Primary Osteoarthritis Shoulder Left Social History Support System: children, outpatient case manager/social media coordinator, friends/neighbors and home care staff Patient's Home [...] Calm, Oriented Communication: Talks, Understands speaking, Understands New Zealander Shopping: Needs assistance Transportation: Support from family Medication Management: Needs assistance Housekeeping: Needs assistance Meal Prep: Needs assistance Managing Finances: Independent Assistive Devices: Grab bars - wall, Eyeglasses Services/Resources: Other (comment) Agency Name: [facility] Services Provided: PATIENT RELATIONS REPRESENTATIVE services 3x/week, nurse visits every other week Baseline Services/Resources [facility] Phone: Fax: Anticipated Needs Functional Status: Transfer to/from bed, chair, etc., Bathing, Dressing, Grooming/hygeine, Housekeeping, Shopping, Meal preparation, Mobility, Medication set-up/administration, Transportation use (drive car, use taxi/bus) Services/Resources: Other (comment) Agency Name: [facility] Provided: PATIENT RELATIONS REPRESENTATIVE services 3x/week, nurse visits every other week Transportation Needs: Support from family Does the patient need discharge transport arranged?: No Ride and Caregiver Arranged: Yes Anticipated Discharge Destination: Home-Health Care [facility] ASSESSMENT / PLAN Assessment: The structural steel erector met with Angie Mosquera to discuss her current hospitalization and home goingneeds. The patient was unaccompanied. The patient was a reliable historian. The role of structural steel erector was reviewed. The patient reviewed her prior level of care and support system. The patient receives support from her son, friends and home care staff. Patient reported her son lives in the same apartment as her. She also stated getting PATIENT RELATIONS REPRESENTATIVE services 3x/week and a nurse visits her every other week. The patient described her living environment as a two bedroom apartment. Housekeeping, grocery shopping, meal prep, and other household responsibilities have previously been completed by patient, patient's son and patient's caregiver(s). structural steel erector discussed the patient's potential needs at [employer] based on their home setting, previous needs and responsibilities, homebound status, and relevantassessments with the patient. The patient will be safe and supported to return home with [facility] or previous services noted above when medically ready. Support will be provided by son, friends and home care staff. The patient demonstrated understanding when discussing her home going plans and anticipated needs. At this time, the care team anticipates the patient requires the following service(s) to be reconnected: home healthcare. The patient identified the following as their current vendor(s): [facility]. During this visit patient verbalized she is hoping to increase her PATIENT RELATIONS REPRESENTATIVE hours and also inq uired about getting a scooter to assist in her mobility. Patient went on to share she is unstable attimes due to her stroke history. She thought perhaps her neurology doctor would be able to help her get a scooter. RN ROWAN recommended she follow up with the [facility] in regards to wanting more PATIENT RELATIONS REPRESENTATIVE hours. She was also recommended to follow up with her primary care provider to provide durable medical equipment justification for a scooter, as she is currently hospitalized for orthopedic surgery. Patient verbalized understanding. Patient informed RN CM would be reconnecting her PATIENT RELATIONS REPRESENTATIVE services and nurse visits with [facility]. Patient agreeable to RN CM completing this and even provided RN CM the name and contact of her PATIENT RELATIONS REPRESENTATIVE and RN. After reviewing the patient's chart and meeting with the patient, the structural steel erector deemed the LACE+/readmission questions were not necessary. The patient reports understanding that she will dismiss from the hospital when medically stable. Pending hospital course and medical readiness, no barriers to dismissal have been identified at this time. Plan: Patient to discharge with home health care. [facility] Contact: RADHA Palomino ATTN: Georgette NURSING: [...] directive. PRIMARY SERVICE: - Please provide a non-[facility] health order for resumption of previous services [...] dismissal will be provided by family. 3. structural steel erector recommended reaching out to family, friends, and neighbors for assistance. 4. structural steel erector provided information regarding the dismissal process. 5. structural steel erector placed or requested the following hospital-based consult orders and/or referrals:None. 6. structural steel erector will continue to assess for homegoing needs with the interdisciplinary team. 7. structural steel erector encouraged the patient to reach out with [...] Patient will discharge to home with [facility] reconnect. Identify possible barriers to meeting goals/advancing plan of care: none End of Shift Summary: Patient stayed on schedule with prn pain meds (Tramadol and oxycodone) throughout the shift. Encouraged using ice packs to help with pain and swelling. Patient's primapore dressing was changed to Aquacell [employer] and is clean, dry and intact. Patient has baseline numb/tingling, moderate police records clerk, skin pink and warm with +2 pulses. Patient expects RN from [facility] to visit on Tuesday, May 24. Patient's friend will transport home. Medications including: oxycodone and tramadol were picked up [facility]. documented in this encounter OR Notes Op Note - Cyrus Polk M.D. - 05/18/2022 5:54 PM CDT STAFF: Cyrus Polk M.D. RESIDENT: Jenna Zaldivar M.D. PRE-OPERATIVE DIAGNOSIS Left dislocated reverse arthroplasty. POST-OPERATIVE DIAGNOSIS Left dislocated reverse arthroplasty. A airplane first officer actively participated and was necessary for one [...] glenosphere, placement new humeral stem and tray, [id number] Cyrus Polk M.D. CT CT Job ID: [id number] documented in this encounter Miscellaneous Notes Hospital Course - Kaushik Cadena M.D. - 05/19/2022 12:18 PM CDT Surgery Information This Encounter Past Procedures (05/19/2021 to Today) Date Procedures Providers Location 05/18/2022 ARTHROPLASTY REPLACEMENT TOTAL SHOULDER. Cyrus Polk M.D.Wasserburger, Jory N, M.D.Markos, James R, M.D. [facility] OR Angie Mosquera was taken [...] with Differential, Blood (05/20/2022 3:43 AM CDT) [facility] Method Time Signature Hemoglobin 8.4 (L) 11.6 [...] Code Phon e Number [facility] - [address] [place], [place] [address] [facility] [place] [address] [facility] [address] [facility] (ABNORMAL) CBC with Differential, Blood (05/19/2022 3:26 AM CDT) [facility] gist Method Time Signature Hemoglobin 7.6 [...] Code Phon e Number [facility] - [address] [place], [place] [address] [facility] [place] [place] [address] [facility] [address] [...] 05/19/2022 DTL Black/ mL/min/BSA 4:38 AM CDT Paraguayan Comment: ----ADDITIONAL INFORMATION---- Estimated GFR [...] Code Phon e Number [facility] - [address] [place], [place] [address] [facility] [place] [address] [facility] [address] DX Shoulder Left 1 [...] Negative for postoperative purposes. Jenna Zaldivar M.D. [facility]Geron[facility]AGNOST[facility]AG[facility] Surgical Pathology, Frozen Lab (05/18/2022 1:04 PM CDT) Component Value Ref Test Analysis Performed At [facility] Method Time Signature 05/20/2022 METH [...] Code Phon e Number [facility] - [address] [place] [address] [facility] [place] [address] [facility] [address] [facility] Bacteria Cult, Aerobe / Anaerobe+Susc (05/18/2022 1:03 [...] Site: Tissue #1 Narrative [facility] - [facility] - 06/01/2022 6:02 PM CDT Bacterial Culture: Placed in Bactec aero bic and Bactec anaerobic bottles Cyrsu Polk M.D. LAB MICROBIOLOGY - GENERAL O RDERASARAH Performing Organization Address City/[facility]/ZIP Code Phon e Number [facility] - [address] [place], [place] [address] [facility] [place] [place] [address] [facility] [address] [facility] Bacteria Cult, Aerobe / Anaerobe+Susc (05/18/2022 1:03 PM CDT) [facility] Method Time Signature Bacteria Cult, No growth 06/01/2022 DTL Aerobe/Anaerob after 14 6:02 PM CDT e+Susc days of incubation. Specimen Anatomical Collection Method Collection Time Receive d Time (Source) Location / / Volume Laterality Shoulder, Left 05/18/2022 1:03 PM 022 5:12 CDT PM CDT Comment: Specimen Source Site: Tissue #3 Narrative [facility] - 06/01/2022 6:02 PM CDT Bacterial Culture: Placed in Bactec aero bic and Bactec anaerobic bottles Cyrus Polk M.D. LAB MICROBIOLOGY - GENERAL O MARY Performing Organization Address City/[facility]/ZIP Code Phon e Number [facility] - [address] [place], [place] [address] [facility] [place], [place] [id number] [place] [address] Bacteria Cult, Aerobe / Anaerobe+Susc (05/18/2022 1:03 PM CDT) [facility] Method Time Signature Bacteria Cult, No growth 06/01/2022 DTL Aerobe/Anaerob after 14 6:02 PM CDT e+Susc days of incubation. Specimen Anatomical Collection Method Collection Time Receive d Time (Source) Location / / Volume Laterality Shoulder, Left 05/18/2022 1:03 PM 022 5:07 CDT PM CDT Comment: Specimen Source Site: Tissue #2 Narrative [facility] - 06/01/2022 6:02 PM CDT Bacterial Culture: Placed in Bactec aero bic and Bactec anaerobic bottles Cyrus Polk M.D. LAB MICROBIOLOGY - GENERAL O MARY Performing Organization Address City/[facility]/ZIP Code Phon e Number [facility] - [address] [place], [place] [address] [facility] [place] [address] [facility] [address] [facility] documented in this encounter Visit Diagnoses [...] 05/19/2022 05/20/2022 acetaminophen tablet 1,000 mg (TYLENOL) 6535 (Given - Provider: Corrie Toscano RBrittonN.)7846 (Given - Provider: Catalina B Mccloud, R.N.) 0511 (Given - Provider: Catalina Mccloud RBrittonN.)1153 (Given - Provider: Isaura Vu R.N.)1725 (Given - Provider: Candace Lanza, JonnyS.N., R.N., O.C.N.) 0125 (Given - Provider: Rafal Waller M.S.N., R.N.)0552 (Given - Provider: Jere Levy R.N.)1206 [...] RBetsy) 222 (Given - Provider: Candace Lanza, M.S.N., R. N., O.C.N.) 80 mg, oral, Daily at bedtime, First dose on Tue05/18/22 at 2100 buPROPion XL 24 hr tablet 150 mg (WELLBUTRIN XL) 0849 (Given - Provider: Isaura Vu RRebekah.) 0908 (Given - Provider: Isaura Vu R.NBritton) 150 mg, oral, Every morning, First [...] 1240 (Given - Provider: Ihsan Townsend APRN, FOAM RUBBER MIXER) 2,000 mg (rounded from 1,652.5 mg = [...] at 0900 QUEtiapine tablet 50 mg (SEROquel) 2052 (Given - Provi marquis: Bettie Macias R.N.) 2224 (Given - Provider: Candace guerra M.S.N., R.N., O.C.N. - Comment: pt request) 50 mg, oral, Daily at bedtime, First dose on Tue05/18/22 at 2100 rOPINIRole tablet 2 mg (REQUIP) 2050 (Given - Provider: Pravin De La Rosa R.N.) 2224 (Given - Provider: Jonny ThorneS.N., R.N., O.C.N. - Comment: pt request) 2 [...] 1240 (Given - Provider: Ihsan Townsend APRN, FOAM RUBBER MIXER) 1,000 mg (1 g), intravenous, at 300 [...] 2051 (Given - Pro vider: Bettie Macias RBrittonNBritton) 0848 (Given - Provider: Isaura Vu RBrittonNBritton)2224 (Given - Provider: Candace Lanza M.S.NBritton, R.N., [...] Garcia R.N.)2241 (Given - Provider: Candace Lanza, Earle.N., R.N., O.C.N.) 400 mg of calcium, oral, Every 2 hour [place] N, indigestion, Starting on Tue05/18/22 at 1608, [...] (CANCELED) 1738 (Given - Provider: Corrie Toscano RBrittonNBritton)2339 (Given - Provider: Catalina Mccloud RBrittonN.) 0339 (Given - Provider: Catalina Mccloud RBrittonN.)0742 (Given - Provider: Catalina Mccloud R.N.)1153 (Given - Provider: Isaura Vu RBrittonNBritton) 10 mg, oral, Every 4 hours [...] 1) 1600 (Given - Provider: Isaura Vu RBetsy)2004 (See Alternative - Provider: Melissa Garcia R.N.) [...] Melissa Garcia R.N.) 123 (Given - Provider: Jonny PérezSBetsy, R.N.)0552 (Given [...] over 3 days 1 patch (TRANSDERM S BROADCAST SUPERVISOR) (CANCELED) 1118 (Medication Applied - Provider: Cristy [...] Macias R.N.) 0612 (Given - Provider: Catalina lerma, R.N.)1209 (Given - Provider: Isaura Vu RBetsy) 0124 (Given - Provider: Rafal Waller, M.S.N., R.N.)0732 (Given - Provider: Isaura Vu RBetsy)1359 (Given - Provider: Isaura Vu R.N.) 100 [...] as of this encounter Care Teams Game Design Instructor Relationship Specialty Start Date End Date Elsewhere, Pcp PCP - General Family Medicine 12/25/21 documented as of this encounter
--- OUTSIDE RECORDS SUMMARY | 2022-09-20 14:06 | XMS_ITS | Encounter Summary ---
:1965 Author Organization [facility] Address [address] [place] [address] Care Team Providers Name Role Phone Elsewhere, Pcp Primary Care Provider Unavailable Encounter Details Date Type Department Care Team Description 05/18/2022 Surgery RST SEBAS MORAN OR Cyrus Polk, ARTHROPLASTY REPLACEMENT [address] [facility] [place] [address] 200 [facility] [phone] [place] [address] Social History Tobacco Use Types Packs/Day Years [...] you attend muslim or Patient refused 2021 pentecostal services? Do [...] or the highest technical, or vocational p [place] degree you have received? Sex Assigned at [...] AM CDT DISCHARGE SUMMARY BRIEF OVERVIEW Hospital: [facility] Discharge Provider: Cyrus Polk M.D. Primary [...] OR DISCHARGE DISPOSITION [facility] [place] [facility] [6] ACTIVE ISSUES REQUIRING FOLLOW UP This document serves as a prescription to continue physical therapy, medications, and labs or x-raysif ordered/required. If you have any questions or concerns about surgery or upcoming appointments, please do not hesitateto contact Dr. Polk's office at [phone] during regular business hours (8am-5pm M-F). For emergencies on the weekend or after hours, you may contact Dr. Polk's service via the [facility] eyelet operator at [phone]. Details for your 6 week follow-up appointment [...] to: Cyrus Polk MD Dept of Orthopedics [address], [address] None OUTPATIENT FOLLOW UP For appointment details [...] Polk M.D.Jenna Zaldivar M.D.Kaushik Cadena M.D. [facility] Angie Mosquera was taken to the [...] THC multivit-min/iron/folic/ Take 1 tablet by 0 [id number] (HAIR, SKIN AND mouth daily. NAILS ADVANCED [...] of this encounter Progress Notes Jey Harper PStacy., D.P.T. - 05/20/2022 12:01 PM CDT Physical [...] 6 pm, please page Jam service at [phone] For urgent matters from 6 pm until 6 am, please page Ortho House at [facility] [phone] ane Almeida Pharm.DBritton, R.Ph. - 05/19/2022 8:12 AM CDT Pharmacist [...] at this time. Jane Nguyen Pharm.D., R.Ph. [phone] Kaushik Cadena M.D. - 05/19/2022 7:34 AM [...] 6 am until 6 pm, please page [facility] at [phone] For urgent matters from 6 pm until 6 am, please page [facility] [place] at [facility] [phone] Paco Valentine - 05/18/2022 9:47 AM CDT Encounter: AM Admit Deanna Tradition: No pentecostal affiliation. Ms. Mosquera did not express any spiritual needs at this time. Plan: Will remain available for spiritual care as needed or requested. [facility] [phone] ([facility]). Rodrigo Preston, Pharm.D., R.Ph. - 05/18/2022 [...] Take 150 mg by mouth every morning. bmcjboayvs-ekgpwtfmarjun-eush (ESGIC) 50-325-40 mg per tablet Past Week [...] 1 spray as needed. 5 mg THC multivit-min/iron/folic/gsb460 (HAIR, SKIN AND NAILS ADVANCED ORAL) Past [...] (HCC) ??? Nicotine Dependence Unspecified ??? Other Timers Inspector Current Drug Therapy ??? Direct Infection [...] Profile Lives With: Alone Receives Help From: casino attendant, Family, Friend(s) ADL Assistance: Required assistance ADL Assistance Comments: Gets help from DRUG DEPARTMENT WORKER for her bath/shower 3x/week, and for her meals IADL/Homemaking Assistance: Required assistance IADL/Homemaking Assistance Comments: Gets help for housecleaning Driving: Does not drive Driving Comments: takes her cane and medical alert with her. Occupational Role: On disability Occupational Role Comments: Previously worked at a [email or web address] and [employer] Prior Mobility/Functional Transfers Level of [place]: Needs assistance Previous Transfer/Mobility Assistance Comments: Patient [...] mask during therapy session: yes Outcome Measures -[facility] Inpatient Short Form: -[facility] Basic Mobility (V.2) How much help from [...] 3-5 steps with a railing?: A Little -[facility] Basic Mobility (V.2) Raw Score: 18 -[facility] Basic Mobility (V.2) Standardized Score: 41.05 Interpretation: Clinicians answer the -[facility] Inpatient Short Form based on observed [...] 33 min Jey Harper P.T., D.P.T. Roland Hlal RRebekah. - 05/19/2022 11:40 AM CDTAssociated Order(s): IP CONSULT TO CARE MANAGEMENT; IP CONSULT TO CARE MANAGEMENT Discharge Planning Assessment SUBJECTIVE Assessment Information Referral Source: Nurse Referral Reason: Discharge Planning Primary Language: Filipino Differential Tester Services Used: No Person(s) present during interview: Person(s) Present During Interview: patient History of Present Illness #1 Primary Osteoarthritis Shoulder Left Social History Support System: children, hospice case manager/social media campaign manager, friends/neighbors and home care staff Patient's Home [...] Calm, Oriented Communication: Talks, Understands speaking, Understands Filipino Shopping: Needs assistance Transportation: Support from family Medication Management: Needs assistance Housekeeping: Needs assistance Meal Prep: Needs assistance Managing Finances: Independent Assistive Devices: Grab bars - wall, Eyeglasses Services/Resources: Other (comment) Agency Name: [facility] Services Provided: DRUG DEPARTMENT WORKER services 3x/week, nurse visits every other week Baseline Services/Resources [facility] Phone: Fax: Anticipated Needs Functional Status: Transfer to/from bed, chair, etc., Bathing, Dressing, Grooming/hygeine, Housekeeping, Shopping, Meal preparation, Mobility, Medication set-up/administration, Transportation use (drive car, use taxi/bus) Services/Resources: Other (comment) Agency Name: [facility] Services Provided: DRUG DEPARTMENT WORKER services 3x/week, nurse visits every other week Transportation Needs: Support from family Does the patient need discharge transport arranged?: No Ride and Caregiver Arranged: Yes Anticipated Discharge Destination: [place] [place] [facility] [place]ESSMENT / PLAN Assessment: The financial aid coordinator met with Angie Mosquera to discuss her current hospitalization and home goingneeds. The patient was unaccompanied. The patient was a reliable historian. The role of financial aid coordinator was reviewed. The patient reviewed her prior level of care and support system. The patient receives support from her son, friends and home care staff. Patient reported her son lives in the same apartment as her. She also stated getting DRUG DEPARTMENT WORKER services 3x/week and a nurse visits her every other week. The patient described her living environment as a two bedroom apartment. Housekeeping, grocery shopping, meal prep, and other household responsibilities have previously been completed by patient, patient's son and patient's caregiver(s). financial aid coordinator discussed the patient's potential needs at [facility] based on their home setting, previous needs and responsibilities, homebound status, and relevantassessments with the patient. The patient will be safe and supported to return home with [facility] or previous services noted above when medically ready. Support will be provided by son, friends and home care staff. The patient demonstrated understanding when discussing her home going plans and anticipated needs. At this time, the care team anticipates the patient requires the following service(s) to be reconnected: home healthcare. The patient identified the following as their current vendor(s): [facility]. During this visit patient verbalized she is hoping to increase her DRUG DEPARTMENT WORKER hours and also inq uired about getting a scooter to assist in her mobility. Patient went on to share she is unstable attimes due to her stroke history. She thought perhaps her neurology doctor would be able to help her get a scooter. RADHA DONAHUE recommended she follow up with the [facility] in regards to wanting more DRUG DEPARTMENT WORKER hours. She was also recommended to follow up with her primary care provider to provide durable medical equipment justification for a scooter, as she is currently hospitalized for orthopedic surgery. Patient verbalized understanding. Patient informed RADHA DONAHUE would be reconnecting her DRUG DEPARTMENT WORKER services and nurse visits with [facility]. Patient agreeable to RN ROWAN completing this and even provided RN CM the name and contact of her DRUG DEPARTMENT WORKER and RN. After reviewing the patient's chart and meeting with the patient, the financial aid coordinator deemed the LACE+/readmission questions were not necessary. The patient reports understanding that she will dismiss from the hospital when medically stable. Pending hospital course and medical readiness, no barriers to dismissal have been identified at this time. Plan: Patient to discharge with home health care. [facility] Contact: RADHA Palomino ATTN: Georgette [...] directive. PRIMARY SERVICE: - Please provide a non-[place] home health order for resumption of previous [...] dismissal will be provided by family. 3. financial aid coordinator recommended reaching out to family, friends, and neighbors for assistance. 4. financial aid coordinator provided information regarding the dismissal process. 5. financial aid coordinator placed or requested the following hospital-based consult orders and/or referrals:None. 6. financial aid coordinator will continue to assess for homegoing needs with the interdisciplinary team. 7. financial aid coordinator encouraged the patient to reach out [...] falls. Patient will discharge to home with [facility] reconnect. Identify possible barriers to meeting goals/advancing plan of care: none End of Shift Summary: Patient stayed on schedule with prn pain meds (Tramadol and oxycodone) throughout the shift. Encouraged using ice packs to help with pain and swelling. Patient's primapore dressing was changed to Aqu[employer]ell [employer] and is clean, dry and intact. 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 Patient expects RN from [facility] to visit on Tuesday, May 24. Patient's friend will transport home. Medications including: oxycodone and tramadol were picked up [facility]. documented in this encounter OR Notes Op Note - Cyrus Polk M.D. - 05/18/2022 5:54 PM CDT STAFF: Cyrus Polk M.D. RESIDENT: Jenna Zaldivar M.D. PRE-OPERATIVE DIAGNOSIS Left dislocated reverse arthroplasty. POST-OPERATIVE DIAGNOSIS Left dislocated reverse arthroplasty. A waiter/waitress first class actively participated and was necessary for one [...] glenosphere, placement new humeral stem and tray, [id number] Cyrus Polk M.D. CT CT Job ID: [id number]/mac documented in this encounter Miscellaneous Notes Hospital Course - Kaushik Cadena M.D. - 05/19/2022 12:18 PM CDT Surgery Information This Encounter Past Procedures (05/19/2021 to Today) Date Procedures Providers Location 05/18/2022 ARTHROPLASTY REPLACEMENT TOTAL SHOULDER. Cyrus Polk M.D.Wasserburger, Jory N, M.D.Markos, James R, M.D. [facility] Angie Mosquera was taken to the [...] with Differential, Blood (05/20/2022 3:43 AM CDT) [facility] Method Time Signature Hemoglobin 8.4 (L) 11.6 [...] [facility] - [address] [place], [place] [address] [facility] [place] [address] [facility] 200 [facility] (ABNORMAL) CBC with Differential, Blood (05/19/2022 3:26 AM CDT) [facility] gist Method Time Signature Hemoglobin 7.6 [...] [facility] [address] [place], [place] [address] [facility] [place] [address] [facility] [...] 05/19/2022 DTL Black/ mL/min/BSA 4:38 AM CDT German Comment: ----ADDITIONAL INFORMATION---- Estimated GFR [...] [facility] - [address] [place], [place] [address] [facility] [place] [address] [facility] [...] Negative for postoperative purposes. Jenna Zaldivar M.D. G DIAGNOSTIC IMAGING PROCE [facility] Surgical Pathology, Frozen Lab (05/18/2022 1:04 PM CDT) Component Value Ref Test Analysis Performed At [facility] Range Method Time Signature 05/20/2022 METH 11:46 [...] LAB SURG PATH ORDERABLES Performing Organization Address City/[facility] Phon e Number [facility] - [address] [place] [address] [facility] METH [place], [place] [phone] [place] [address] 200 [facility] Bacteria Cult, Aerobe / Anaerobe+Susc (05/18/2022 1:03 PM CDT) [facility] gist Method Time Signature Bacteria Cult, No growth 06/01/2022 DTL Aerobe/Anaerob after 14 6:02 PM CDT e+Susc days of incubation. Specimen Anatomical Collection Method Collection Time Receive d Time (Source) Location / / Volume Laterality Shoulder, Left 05/18/2022 1:03 PM 022 5:21 CDT PM CDT Comment: Specimen Source Site: Tissue #[address] [facility] - [facility] - 06/01/2022 6:02 PM CDT Bacterial Culture: Placed in Bactec aero bic and Bactec anaerobic bottles Cyrus Polk M.D. LAB MICROBIOLOGY - GENERAL O RDERABLES Performing Organization Address [facility] Phon e Number [facility] - [address] [place] [address] [facility] [place], [place] [phone] [place] [address] 200 [facility] Bacteria Cult, Aerobe / Anaerobe+Susc (05/18/2022 1:03 PM CDT) [facility] [employer] Method Time Signature Bacteria Cult, No growth 06/01/2022 DTL Aerobe/Anaerob after 14 6:02 PM CDT e+Susc days of incubation. Specimen Anatomical Collection Method Collection Time Receive d Time (Source) Location / / Volume Laterality Shoulder, Left 05/18/2022 1:03 PM 022 5:12 CDT PM CDT Comment: Specimen Source Site: Tissue #3 Narrative [facility] - 06/01/2022 6:02 PM CDT Bacterial Culture: Placed in Bactec aero bic and Bactec anaerobic bottles Cyrus Polk M.D. LAB MICROBIOLOGY - GENERAL O MARY Performing Organization Address City/[facility] Phon e Number [address] Bacteria Cult, Aerobe / Anaerobe+Susc (05/18/2022 1:03 PM CDT) [facility] [employer] Method Time Signature Bacteria Cult, No growth 06/01/2022 DTL Aerobe/Anaerob after 14 6:02 PM CDT e+Susc days of incubation. Specimen Anatomical Collection Method Collection Time Receive d Time (Source) Location / / Volume Laterality Shoulder, Left 05/18/2022 1:03 PM 022 5:07 CDT PM CDT Comment: Specimen Source Site: Tissue #2 Narrative [facility] - 06/01/2022 6:02 PM CDT Bacterial Culture: Placed in Bactec aero bic and Bactec anaerobic bottles Cyrus Polk M.D. LAB MICROBIOLOGY - GENERAL O MARY Performing Organization Address City/[facility] Phon e Number [address] documented in this encounter Visit Diagnoses [...] 05/19/2022 05/20/2022 acetaminophen tablet 1,000 mg (TYLENOL) 1566 (Given - Provider: Corrie Toscano RBrittonN.)8517 (Given - Provider: Catalina Mccloud RBrittonN.) 0511 (Given - Provider: Catalina Mccloud R.N.)1155 (Given - Provider: Isaura Vu RBrittonN.)1725 (Given [...] (New Bag - Provider: Bettie Macias R.N.) 0339 (New Bag - Provider: Catalina claudio R.N.) [...] 1240 (Given - Provider: Ihsan Townsend APRN, [facility]) 2,000 mg (rounded from 1,652.5 mg = [...] Reason: Patient/family refused) 0849 (Given - Provider: Isauar Vu R.N.)1725 (Not Given - Provider: Candace [...] 1240 (Given - Provider: Ihsan Townsend APRN, [facility]) 1,000 mg (1 g), intravenous, [...] Vu R.N.)2224 (Given - Provider: Candace Lanza M.S.N., [...] Catalina Mccloud R.N.)1015 (Given - Provider: Isaura uV R.N.) 1 lozenge, oral, As needed, sore throat, Starting on Tue05/18/22 at 1608 benzonatate capsule 100 mg (TESSALON PERLES) 0501 (Given - Provider: Catalina Mccloud RRebekah.)2233 (Given - Provider: Candace Lanza M.S.N., R.N., [...] mg of calcium, oral, Every 2 hour NM N, indigestion, Starting on Tue05/18/22 at 1608, [...] RBrittonN.) 0504 (Given - Provider: Catalina Mccloud R.N.) [...] 0.2 mg (DILAUDID) 224 (Given - Provider: Jonny ThorneSBrittonN., R.N., O.C.N.) [...] RBrittonN.) 0124 (See Alternative - Provider: Jonny PérezS.N., R.N.)0552 (See Alternative - Provider: Jere Levy [...] Vu R.N.)2004 (Given - Provider: Melissa Garcia RBrittonNBritton) 0124 (Given - Provider: Jonny PérezSBetsy, R.N.)0552 [...] over 3 days 1 patch (TRANSDERM S SOFTWARE SUPPORT ANALYST) (CANCELED) 1118 (Medication Applied - Provider: [...] Sharifa CuevasNBritton) 0124 (Given - Provider: Rafal Waller, M.S.N., R.N.)0732 (Given - Provider: Isaura Vu RBrittonNBritton)1359 (Given - Provider: Sharifa CuevasNBritton) 100 mg, oral, Every 6 hours PRN, [...] Sharifa CuevasN.)1359 (See Alternative - Provider: Sharifa CuevasN.) 50 mg, oral, Every 6 hours PRN, [...] documented as of this encounter Care Teams Television Installer Helper Relationship Specialty Start Date End Date Elsewhere, Pcp PCP - General Family Medicine 12/25/21 documented as of this encounter
--- OUTSIDE RECORDS SUMMARY | 2022-09-20 14:06 | XMS_ITS | Encounter Summary ---
:1965 Author Organization [facility] Address [address] [place] [address] Care Team Providers Name Role Phone Elsewhere, Pcp Primary Care Provider Unavailable Reason for Visit Reason Comments Pre-visit Intake Encounter Details Date Type Department Care Team Description 05/12/2022 Clinical Communication Department of Cyrus Polk e-visit Intake Orthopedic Surgery Lilian Souza in [place], [address] [place] [address] [place] [address] [place], [place] [phone] (Work) [phone] Social History Tobacco Use Types Packs/Day Years [...] you attend shinto or Patient refused 2021 presybeterian services? Do [...] documented as of this encounter Care Teams Grooming Salon Manager Relationship Specialty Start Date End Date Elsewhere, Pcp PCP - General Family Medicine 12/25/21 documented as of this encounter
--- OUTSIDE RECORDS SUMMARY | 2022-09-20 14:06 | XMS_ITS | Encounter Summary ---
:1965 Author Organization [facility] Address [address] [place] [address] Care Team Providers Name Role Phone Elsewhere, Pcp Primary Care Provider Unavailable Reason for Visit Reason Comments Scooter prescription Encounter Details Date Type Department Care Team Description 05/19/2022 Clinical Communication Department of Robert Diehl prescription Neurology in [place] Celaya Bruin, [facility] [address] [place], [place] [address] [place] [phone] [place], [place] [phone] (Work) [phone] Social History Tobacco Use Types Packs/Day Years [...] you attend baptism or Patient refused 2021 hinduism services? Do [...] [facility] until tomorrow. I encouraged her to reach [...] Dx: Stroke Cerebrovascular Accident Personal History Olivia Pedroza Bill Of Lading Clerk 05/19/22 11:51 AM CDT documented in this encounter Plan of Treatment Not on filedocumented as of this encounter Visit Diagnoses Not on filedocumented in this encounter Additional Health Concerns Assessment Noted Time PHQ-9 Depression Total Score: 16 02/11/2021 12:00 AM C DT documented as of this encounter Care Teams Ignition Expert Relationship Specialty Start Date End Date Elsewhere, Pcp PCP - General Family Medicine 12/25/21 documented as of this encounter
--- OUTSIDE RECORDS SUMMARY | 2022-09-20 14:06 | XMS_ITS | Encounter Summary ---
:1965 Author Organization [facility] Address [address] [place] [address] Care Team Providers Name Role Phone Elsewhere, Pcp Primary Care Provider Unavailable Encounter Details Date Type Department Care Team Description 05/17/2022 Hospital Encounter Department of Alfredo Herrera Preo perative Exam Laboratory Medicine O[facility]A.-C. and Pathology, [place] [address] [place] [address], in [place], [place] [phone] [place] [address] [place], [place] (Work) [phone] Social History Tobacco Use [...] you attend tenriism or Patient refused 2021 gnosticist services? Do [...] THC multivit-min/iron/folic/ Take 1 tablet by 0 [id number] (HAIR, SKIN AND mouth daily. NAILS ADVANCED [...] Eosinophils 1 1 - 3 % 05/17/2022 [facility] 1:04 PM CDT Basophils 1 0 - 2 % 05/17/2022 [facility] 1:04 PM CDT Manual Absolute 2.24 1.56 - 05/17/2022 [facility] Neutrophil Count 6.45 1:04 [...] Reviewed by: Tech 05/17/2022 1:04 PM CDT [facility] Specimen Anatomical Collection Method Collection Time Receive d Time (Source) Location / / Volume Laterality Blood 05/17/2022 10:50 05/17/2022 AM CDT 11:30 AM CDT Alfredo Kamara LAB BLOOD ADD-ON Performing Organization Address City/State/ZIP Code Phon e Number [facility] - [address] [place], [place] [phone] [place] [address] [facility] [address] Basic Metabolic Panel (05/17/2022 [...] 05/17/2022 DTL Black/ mL/min/BSA 12:12 PM CDT [place] Comment: ----ADDITIONAL INFORMATION---- Estimated GFR [...] [facility] [address] [place], [place] [address] [facility] [place] [address] [facility] [address] Type and Screen (with reflex Antibody ID) (05/17/2022 10:50 AM CDT) Patholo gist Method Time Signature ABORh A Neg Not 05/17/2022 [facility] applicable 7:10 PM CDT Antibody Negative Negative 05/17/2022 E[facility] Screen 7:22 PM CDT Type & Screen 07/15/2022 05/17/2022 ETRM Expiration 23:59 7:10 PM CDT Testing [place] DEFAULT 05/17/2022 ETRM Location 12:24 PM CDT Specimen Anatomical Collection Method Collection Time Receive d Time (Source) Location / / Volume Laterality Blood (Blood, 05/17/2022 10:50 05/17/2022 Venous) AM CDT 12:24 PM CDT Alfredo Kamara LAB BLOOD BANK TEST ORDERABL ES Performing Organization Address City/State/ZIP Code Phon e Number [facility] - [address] [place] [phone] [facility] [place] [address] [facility] [address] [facility] (ABNORMAL) CBC with Differential, Blood (05/17/2022 10:50 AM CDT) [facility] Method Time Signature Hemoglobin 9.2 (L) [...] [facility] - [address] [place], [place] [address] [facility] [place] [address] [facility] [address] documented in this encounter Visit Diagnoses Diagnosis Preoperative Exam documented in this encounter Additional Health Concerns Infection Onset Date Last Indicated Resolved Time COVID19 Pending 05/17/2022 05/17/2022 05/17/2022 2:34 PM CDT Assessment Noted Time PHQ-9 Depression Total Score: 16 02/11/2021 12:00 AM C DT documented as of this encounter Care Teams Seat Cover Cutter Relationship Specialty Start Date End Date Elsewhere, Pcp PCP - General Family Medicine 12/25/21 documented as of this encounter
--- OUTSIDE RECORDS SUMMARY | 2022-09-20 14:06 | XMS_ITS | Encounter Summary ---
:1965 Author Organization [facility] Address [address] [place] [address] Care Team Providers Name Role Phone Elsewhere, Pcp Primary Care Provider Unavailable Reason for Visit Outpatient (Routine) - Closed Specialty Diagnoses / Procedures Referred By Contact Refer red To Contact Anesthesiology Diagnoses Anemia Shauna Rubin APRN, [facility] C.N.PBritton, M.S.N. [address] [place] [phone] Referral ID Status Reason Start Date Expiration Date Visits Requ ested Visits Authorized [id number] Closed 04/22/2022 04/22/2023 1 1 Encounter Details Date Type Department Care Team Description 05/03/2022 Comprehensive Visit Preoperative Evaluation Shauna Gomez APRN, C.N.P., M.S.N. [address] [place] [phone] [facility] Peter Tse R.N. [address] [place] [phone] [place] [address] [place] [phone] Social History Tobacco Use Types Packs/Day [...] you attend tenriism or Patient refused 2021 catholic services? Do [...] highest technical, or vocational p [facility] [place] degree you have received? Sex Assigned at [...] iron in the past when living in [place] (approximately 5-6 years ago). Therapy Plan: With the planned ARTHROPLASTY REPLACEMENT TOTAL SHOULDER on 05/18/2022 the patient would meet criteria based on the Preoperative Anemia Treatment Algorithm and RN Anemia Protocol to receive 1 x 1,000 mgdose of IV iron dextran. Patient agrees with this and would like this administered @ [facility]. I provided the patient with the education pamphlet [id number] Treating Anemia Before Surgery andanswered her questions [...] documented as of this encounter Care Teams Acetylene Cutter Relationship Specialty Start Date End Date Elsewhere, Pcp PCP - General Family Medicine 12/25/21 documented as of this encounter
--- OUTSIDE RECORDS SUMMARY | 2022-09-20 14:06 | XMS_ITS | Encounter Summary ---
:1965 Author Organization [facility] [place] Address [address] [place] [address] Care Team Providers Name Role Phone Elsewhere, Pcp Primary Care Provider Unavailable Encounter Details Date Type Department Care Team Description 05/11/2022 Clinical Communication Department of Cyrus Polk Orthopedic Surgery in Lilian Souza [place], [place] 200 [facility] [address] [place] [phone] Social History Tobacco Use Types Packs/Day Years [...] documented as of this encounter Care Teams Pmo Manager Relationship Specialty Start Date End Date Elsewhere, Pcp PCP - General Family Medicine 12/25/21 documented as of this encounter
--- OUTSIDE RECORDS SUMMARY | 2022-09-20 14:06 | XMS_ITS | Encounter Summary ---
:1965 Author Organization [facility] Address [address] [place] [address] Care Team Providers Name Role Phone Elsewhere, Pcp Primary Care Provider Unavailable Encounter Details Date Type Department Care Team Description 05/18/2022 Anesthesia Event RST SEBAS MORAN OR Kaushik Carpenter, [address] [facility] [place] [phone] [facility] [phone] [place] [phone] (Wo rk) Anesthesia Record Procedure Summary Procedure Name Responsible Anesthesia Start Anesthesia Stop Anesthesiologist Time Time ARTHROPLASTY Kaushik Carpenter MBrittonBBritton, 05/18/22 1214 05/18/22 1415 REPLACEMENT TOTAL Ch.B. [...] h andoff to the receiving staff during [facility] ch we 1. Identified the [...] 05/18/22 1258 by Incision; Shoulder; Rishi Murillo RRebekah. Anterior, Left Wound 02/26/22; Incision; 02/26/22 0000 by 05/18/22 12 58 by Shoulder; Anterior, Left; Rishi Murillo R.N. Rishi Murillo R.N. 05/18/22; 1258 Peripheral IV Placement Date: 05/18/22; 05/18/22 0926 by 05/19 1500 by Ion, Placement Time: 925; Anita Ellis R.N. Ro se VBritton Catheter Size: 20 G; Orientation: Anterior, Lower, Right; Location: Forearm; Site Prep: Chlorhexidine (Preferred); Technique: Anatomical landmarks; Inserted by: TJCarole; Insertion Attempts: 1; Removal Date: 05/19/22; Removal Time: 1500 (pt states the IV blew and was taken out); Removal Reason: No longer in place (no longer in place on assessment) ETT Placement Date: 05/18/22; 05/18/22 1220 by Cary , 05/18/22 1352 by Placement Time: 1220 Ihsan Patel APRN, CREATIVE RESOURCE MANAGER Ihsan Townsend APRN, (created via procedure CREATIVE RESOURCE MANAGER documentation); Mask Ventilation: Easy mask; Type: Standard [...] teens, used to be 2 ppd, now /2 ppd. Roughly 40 pack year estimate Alcohol [...] you attend spiritism or Patient refused 2021 pentecostal services? Do [...] Procedure Summary Date: 05/18/22 Room / Location: [place] [address] / [facility] in [place], [place] Anesthesia Start: 1214 Anesthesia Stop: 1415 [...] ETT location: oral VL device: glide scope [place] scope blade size: 3 Adult tube size: [...] diagnosis: Loose left total shoulder arthroplasty. Location: [place] [address] / [facility] in [place], [place] Providers: Cyrus Polk M.D. 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 The use of blood products not discussed [...] procedure ar e in the results section. [facility] US GUIDE PLC NDL Routine 05/18/2022 11:24 Resu lts for this AM CDT procedure are i n the results section. [facility] INJ ANES BRACHIAL Routine 05/18/2022 11:24 Res [...] ETT location: oral VL device: glide scope [place] scope blade size: 3 Adult tube size: [...] no complications Kaushik Carlos, BBritton ANESTHESIA ORDERABLES [facility] INJ ANES BRACHIAL PLEX, [facility] US GUIDE PLC NDL, [facility] ANE NERVE BLOCK WITH ULTRASOUND (05/18/2022 11:24AM CDT) Narrative Jonah Mendez M.D. - 05/18/2022 11:24 AM CDT Jonah Mendez M.D. ? 05/18/2022 12:18 PM Regional Block Date/Time: 05/18/2022 11:24 AM Performed by: Jonah Mendez M.D. Authorized by: Jnoah Mendez M.D. Location: Pre Op / PACU [...] documented as of this encounter Care Teams Voice Pathologist Relationship Specialty Start Date End Date Elsewhere, Pcp PCP - General Family Medicine 12/25/21 documented as of this encounter
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
--- OUTSIDE RECORDS SUMMARY | 2022-09-20 14:06 | XMS_ITS | Encounter Summary ---
:1965 Author Organization [facility] Address 200 [place] [address] Care Team Providers Name Role Phone Elsewhere, Pcp Primary Care Provider Unavailable Reason for Visit Reason Comments Discharge Planning Discharge Planning Encounter Details Date Type Department Care Team Description 05/06/2022 Clinical Communication Department of Kaushik Portillo Di scharge Planning Orthopedic Surgery R.N. (Discharge in [place] [address] [facility]) [place], [place] 200 [facility] [address] [place], [place] [phone] (Work) [phone] Social History Tobacco Use Types Packs/Day Years [...] you attend mormon or Patient refused 2021 latter-day services? Do [...] home. The role of the caregiver and hazardous materials driver will be filled by the patient's [...] to her history of falling. I encourage Ortho.Chrome Worker to contact this patient, prior to surgery, [...] documented as of this encounter Care Teams Flight Test Mechanic Relationship Specialty Start Date End Date Elsewhere, Pcp PCP - General Family Medicine 12/25/21 documented as of this encounter
--- OUTSIDE RECORDS SUMMARY | 2022-09-20 14:06 | XMS_ITS | Encounter Summary ---
:1965 Author Organization [facility] Address [address] [place] [address] Care Team Providers Name Role Phone Elsewhere, Pcp Primary Care Provider Unavailable Reason for Referral Outpatient (Routine) - Closed Specialty Diagnoses / Procedures Referred By Contact Refer red To Contact Social Work Diagnoses Pain Shoulder Left Preoperative Exam Jenna Zaldivar [place] M.D. Referral ID Status Reason Start Date Expiration Date Visits Requ ested Visits Authorized [id number] Closed 05/10/2022 05/10/2023 1 1 Reason for Visit Reason Comments Pre-visit Testing Orders Encounter Details Date Type Department Care Team Description 05/07/2022 Clinical Communication Department of Jam, Pre- visit Testing Orthopedic Surgery Cyrus Souza M.D. Orders in [place], [address] [place] [address] [place] [phone] [place], [place] [phone] (Work) [phone] Social History Tobacco Use Types Packs/Day Years [...] you attend episcopal or Patient refused 2021 sabianist services? Do you belong to any clubs or No 05/17/2022 organizations such as episcopal groups, unions, fraSurvata or athletic groups, or school groups? How [...] Associated Diagnoses Order [facility] Social Work - Outpatient Referral Routine Pain Shoulde r Left Expected: General consult Preoperative Exam 022 (clinic) (Approximate), Expires: 08/07/2023 documented as of this encounter Visit Diagnoses Diagnosis Pain Shoulder Left - Primary Preoperative Exam documented in this encounter Additional Health Concerns Assessment Noted Time PHQ-9 Depression Total Score: 16 02/11/2021 12:00 AM C DT documented as of this encounter Care Teams Japanese Interpreter Relationship Specialty Start Date End Date Elsewhere, Pcp PCP - General Family Medicine 12/25/21 documented as of this encounter
--- OUTSIDE RECORDS SUMMARY | 2022-09-20 14:06 | XMS_ITS | Encounter Summary ---
:1965 Author Organization [facility] Address [address] [place] [address] Care Team Providers Name Role Phone Elsewhere, Pcp Primary Care Provider Unavailable Encounter Details Date Type Department Care Team Description 05/18/2022 Ancillary Procedure Department of Anesthesiology, [place] Social History Tobacco Use Types Packs/Day Years [...] you attend shinto or Patient refused 2021 sabianist services? Do [...] documented as of this encounter Care Teams Vegetable Preparer Relationship Specialty Start Date End Date Elsewhere, Pcp PCP - General Family Medicine 12/25/21 documented as of this encounter
--- OUTSIDE RECORDS SUMMARY | 2022-09-20 14:06 | XMS_ITS | Encounter Summary ---
:1965 Author Organization [facility] Address [address] [place] [address] Care Team Providers Name Role Phone Elsewhere, Pcp Primary Care Provider Unavailable Reason for Visit Outpatient (Routine) - Closed Specialty Diagnoses / Procedures Referred By Contact Refer red To Contact Orthopedic Surgery Diagnoses Pain Shoulder Left Preoperative Exam Alfredo Herrera, [facility] O.P.A.-C. [address] [place] [address] Referral ID Status Reason Start Date Expiration Date Visits Requ ested Visits Authorized [id number] Closed 04/22/2022 04/22/2023 1 1 Encounter Details Date Type Department Care Team Description 05/17/2022 Office Visit Department of Cyrus Polk, Pain Shou lder Left; Orthopedic Surgery in M.D. Preoperative Exam [place], [place] [address] [place] [address] [address] [place] [phone] Social History Tobacco Use Types Packs/Day Years [...] 05/17/2022 organizations such as alevism groups, unions, [employer]Back[employer] Network or athletic groups, or school groups? [...] surgery may involve the use of a nurses medical assistants phlebotomists made by a [employer] I or one of my partners have collaborated to design, develop, or improve orthopedic implants, instruments, or products. Both the [facility] and the individual surgeons involved receive royalty payments from the use of those specific devices at other institutions, but no royalties or any other payments are paid for the use of those devices with any [facility] patient. The clinical rationale for the use of those devices as well as the availability and applicability of alternative devices was reviewed. He understands that the final decision for the use of a specific nurses medical assistants phlebotomists often is made at the time of [...] as of this encounter Care Teams Retail Loss Prevention Officer Relationship Specialty Start Date End Date Elsewhere, Pcp PCP - General Family Medicine 12/25/21 documented as of this encounter
--- OUTSIDE RECORDS SUMMARY | 2022-09-20 14:07 | XMS_ITS | Encounter Summary ---
:1965 Author Organization [facility] Address [address] [place] [address] Care Team Providers Name Role Phone Elsewhere, Pcp Primary Care Provider Unavailable Encounter Details Date Type Department Care Team Description 03/11/2022 Documentation Department of Orthopedic Melissa Mcdonald M.D. Surgery in [place], [place] [address] [place] [phone] Social History Tobacco Use Types [...] you attend nondenominational or Patient refused 2021 evangelical services? Do [...] Mr. Mosquera if he could come to [place] to excelsior picker a new sling tomorrow and he [...] documented as of this encounter Care Teams Glazier Supervisor Relationship Specialty Start Date End Date Elsewhere, Pcp PCP - General Family Medicine 12/25/21 documented as of this encounter
--- OUTSIDE RECORDS SUMMARY | 2022-09-20 14:07 | XMS_ITS | Encounter Summary ---
:1965 Author Organization [facility] Address [address] [place] [address] Care Team Providers Name Role Phone Elsewhere, Pcp Primary Care Provider Unavailable Encounter Details Date Type Department Care Team Description 03/03/2022 Orders Only Pharmacy Prior Auth Yady Lebron [phone] Social History Tobacco Use Types Packs/Day Years [...] you attend presybeterian or Patient refused 2021 church services? Do [...] as of this encounter Care Teams Wood Patternmaker Apprentice Relationship Specialty Start Date End Date Elsewhere, Pcp PCP - General Family Medicine 12/25/21 documented as of this encounter
--- OUTSIDE RECORDS SUMMARY | 2022-09-20 14:07 | XMS_ITS | Encounter Summary ---
:1965 Author Organization [facility] Address [address] [place] [address] Care Team Providers Name Role Phone Elsewhere, Pcp Primary Care Provider Unavailable Encounter Details Date Type Department Care Team Description 03/08/2022 Orders Only Department of Orthopedic Melissa Mcdonald M.D. Surgery in [place], [place] [address] [place] [phone] Social History Tobacco Use Types [...] documented as of this encounter Care Teams Fiberglass Machine Operator Relationship Specialty Start Date End Date Elsewhere, Pcp PCP - General Family Medicine 12/25/21 documented as of this encounter
--- OUTSIDE RECORDS SUMMARY | 2022-09-20 14:07 | XMS_ITS | Encounter Summary ---
:1965 Author Organization [facility] Address [address] [place] [address] Care Team Providers Name Role Phone Elsewhere, Pcp Primary Care Provider Unavailable Reason for Visit Outpatient (Routine) - Closed Specialty Diagnoses / Procedures Referred By Contact Refer red To Contact Diagnoses Painful Total Joint Arthroplasty Initial ([facility]ER[facility]) Alfredo Herrera [place] Procedures ORS US-Guided aspiration/injection O.P.A.-C. [address] [place] [phone] Referral ID Status Reason Start Date Expiration Date Visits Requ ested Visits Authorized [id number] Closed 04/02/2022 04/02/2023 1 1 Encounter Details Date Type Department Care Team Description 04/14/2022 Procedure visit Department of Jey Monzon Painful To beto Joint Orthopedic Surgery in Lilian Celaya Arthroplasty Initial [place], [place] [address] [place] [address] (FORMERLY [facility]) [address] [place] [phone] [phone] Social History Tobacco Use Types Packs/Day Years [...] you attend restorationist or Patient refused 2021 caodaism services? Do [...] Total Joint Arthroplasty Initial (HCC) REFERRAL SOURCE: Martina Schwab.A.-* PROCEDURE(S) PERFORMED: Sonographically-guided left shoulder arthroplasty aspiration SUPERVISION: I directly supervised the procedure, which was performed by Carmelo Guo M.D., M.S. ([phone]). HISTORY: The patient was recently evaluated for [...] and sterile ultrasound gel were used. Machine: [employer] Transducer: 6-15 MHz linear transducer. Patient position: [...] only Date/Time: 04/14/2022 9:30 AM Performed by: eJy Monzon M.D. Authorized by: Alfredo Herrera O.P.A.-C. [...] preparation: chlorhexidine/alcohol Images have been archived in [employer]: click the 'Dept Filter' button in [employer], then the 'Clear (ShowAll)' button, then OK. [...] Aerobe / Anaerobe+Susc (04/14/2022 9:35 AM CDT) [employer] Method Time Signature Bacteria Cult, No growth 04/28/2022 DTL Aerobe/Anaerob after 14 11:02 AM CDT e+Susc days of incubation. Specimen Anatomical Collection Method Collection Time Receive d Time (Source) Location / / Volume Laterality Synovial Fluid, 04/14/2022 9:35 AM 2021 Left Shoulder CDT 10:18 AM CDT Comment: Specimen Source Site: Aspirate Narrative [facility] - 04/28/2022 11:02 AM CDT Bacterial Culture: Received Bactec aerob ic and Bactec anaerobic bottles Alfredo Kamara LAB MICROBIOLOGY - GENERAL O RDERABLES Performing Organization Address City/State/ZIP Code Phon e Number [facility] - [facility] [address] [place], [place] [address] [facility] [place] [address] [facility] 200 [address] [facility] Cell Count and Differential, Body Fluid (04/14/2022 9:35 AM CDT) [employer] Method Time Signature Fluid Type Right 04/14/2022 [...] Its performance characteri stics were determined by [facility] in a manner co nsistent with [...] [facility] - [address] [place], [place] [address] [place] [address] [facility] [address] [place] ARTHCS ASP/INJ MJR JT W US [...] documented as of this encounter Care Teams District Director Relationship Specialty Start Date End Date Elsewhere, Pcp PCP - General Family Medicine 12/25/21 documented as of this encounter
--- OUTSIDE RECORDS SUMMARY | 2022-09-20 14:07 | XMS_ITS | Encounter Summary ---
:1965 Author Organization [facility] Address [address] [place] [address] Care Team Providers Name Role Phone Elsewhere, Pcp Primary Care Provider Unavailable Reason for Visit Reason Comments Communication Encounter Details Date Type Department Care Team Description 03/11/2022 Clinical Communication Department of Cyrus Polk mmunication Orthopedic Surgery in Lilian Souza [place], [place] 200 [facility] 200 [place] [phone] [phone] Social History Tobacco Use Types Packs/Day Years [...] you attend hindu or Patient refused 2021 congregational services? Do [...] will attempt to sew sling back together tonjill. Patient is using scarf as a cuff/collar at the moment. Need to find out whether a new sling can be mailed to the patient since she cannot drive, her son states he cannot fit in her car, and he reports he does not have any gas and cannot afford any to drive to [place] and diamond picker new sling. Telephone Encounter - Radha [...] documented as of this encounter Care Teams Tool Analyst Relationship Specialty Start Date End Date Elsewhere, Pcp PCP - General Family Medicine 12/25/21 documented as of this encounter
--- OUTSIDE RECORDS SUMMARY | 2022-09-20 14:07 | XMS_ITS | Encounter Summary ---
:1965 Author Organization [facility] Address [address] [place] [address] Care Team Providers Name Role Phone Elsewhere, Pcp Primary Care Provider Unavailable Encounter Details Date Type Department Care Team Description 03/03/2022 Orders Only Pharmacy Prior Auth Usha Maurer [phone] Social History Tobacco Use Types Packs/Day Years [...]
--- OUTSIDE RECORDS SUMMARY | 2022-09-20 14:07 | XMS_ITS | Encounter Summary ---
:[address] [facility] Address [address] [place] [address] Care Team Providers Name Role Phone Elsewhere, Pcp Primary Care Provider Unavailable Encounter Details Date Type Department Care Team Description 04/14/2022 Hospital Encounter Department of Alfredo Herrera Total Shoulder Replacement Status Post Left; Laboratory Medicine A, O.P.A.-C. Painful Total Joint Arthroplasty Initial (HCC) and Pathology, [address] [place] [address], in [facility] [address] [place] [phone] [place] [address] (Work) [place], [place] [phone] (Fax) [phone] Social History Tobacco Use Types Packs/Day Years [...] THC multivit-min/iron/folic/ Take 1 tablet by 0 [id number] (HAIR, SKIN AND mouth daily. NAILS ADVANCED [...] Arthroplasty Initial proc edure are in (FORMERLY [facility]) the results section. C-REACTIVE PROTEIN Routine 04/14/2022 [...] Kamara LAB BLOOD ADD-ON Performing Organization Address City/[facility] Code Phon e Number [facility] - [address] [place], [place] [address] [facility] [place] [address] [facility] 200 [facility] (ABNORMAL) CBC without Differential (04/14/2022 10:42 AM [...] Kamara LAB BLOOD ADD-ON Performing Organization Address City/State/[facility] Code Phon e Number [facility] - [address] [place], [place] [address] [facility] [place] [address] [facility] [address] documented in this encounter Visit Diagnoses Diagnosis Arthroplasty Total Shoulder Replacement Status Post Left Painful Total Joint Arthroplasty Initial (HCC) documented in this encounter Additional Health Concerns Assessment Noted Time PHQ-9 Depression Total Score: 16 02/11/2021 12:00 AM C DT documented as of this encounter Care Teams Professor Of Kinesiology Relationship Specialty Start Date End Date Elsewhere, Pcp PCP - General Family Medicine 12/25/21 documented as of this encounter
--- OUTSIDE RECORDS SUMMARY | 2022-09-20 14:07 | XMS_ITS | Encounter Summary ---
:1965 Author Organization [facility] Address [address] [place] [address] Care Team Providers Name Role Phone Elsewhere, Pcp Primary Care Provider Unavailable Encounter Details Date Type Department Care Team Description 03/08/2022 Orders Only Department of Orthopedic Melissa Mcdonald M.D. Surgery in [place], [place] [address] [place] [phone] Social History Tobacco Use Types [...] as of this encounter Care Teams Worm Raiser Relationship Specialty Start Date End Date Elsewhere, Pcp PCP - General Family Medicine 12/25/21 documented as of this encounter
--- OUTSIDE RECORDS SUMMARY | 2022-09-20 14:07 | XMS_ITS | Encounter Summary ---
:1965 Author Organization [facility] Address [address] [place] [address] Care Team Providers Name Role Phone Elsewhere, Pcp Primary Care Provider Unavailable Encounter Details Date Type Department Care Team Description 03/19/2022 Clinical Communication Department of Cyrus Polk Orthopedic Surgery in Lilian Souza [place], [place] 200 [facility] 200 [place] [address] [phone] Social History Tobacco Use Types Packs/Day Years [...] you attend yazdanism or Patient refused 2021 jain services? Do [...] Have discussed this situation with the O.R. endless track vehicle supervisor, the A.M. admission Doping Supervisor, and the Outpatient Doping Supervisor and no one can locate this remote [...] Please return a call to her at [phone] documented in this encounter Plan of Treatment Not on filedocumented as of this encounter Visit Diagnoses Not on filedocumented in this encounter Additional Health Concerns Assessment Noted Time PHQ-9 Depression Total Score: 16 02/11/2021 12:00 AM C DT documented as of this encounter Care Teams Results Technician Relationship Specialty Start Date End Date Elsewhere, Pcp PCP - General Family Medicine 12/25/21 documented as of this encounter
--- OUTSIDE RECORDS SUMMARY | 2022-09-20 14:07 | XMS_ITS | Encounter Summary ---
:1965 Author Organization [facility] Address [address] [place] [address] Care Team Providers Name Role Phone Elsewhere, Pcp Primary Care Provider Unavailable Encounter Details Date Type Department Care Team Description 03/05/2022 Clinical Communication Pharmacy Prior Auth Ben Chino RO M.D. [phone] Social History Tobacco Use Types Packs/Day Years [...] you attend rastafari or Patient refused 2021 oriental orthodox services? [...] as of this encounter Care Teams Ship Carpenter Relationship Specialty Start Date End Date Elsewhere, Pcp PCP - General Family Medicine 12/25/21 documented as of this encounter
--- OUTSIDE RECORDS SUMMARY | 2022-09-20 14:07 | XMS_ITS | Encounter Summary ---
:1965 Author Organization [facility] Address [address] [place] [address] Care Team Providers Name Role Phone Elsewhere, Pcp Primary Care Provider Unavailable Encounter Details Date Type Department Care Team Description 03/05/2022 Orders Only Pharmacy Prior Auth RO Elsewhere, Pcp [phone] Social History Tobacco Use Types Packs/Day Years [...] you attend anabaptism or Patient refused 2021 faith services? Do [...] documented as of this encounter Care Teams Breast Buffer Relationship Specialty Start Date End Date Elsewhere, Pcp PCP - General Family Medicine 12/25/21 documented as of this encounter
--- OUTSIDE RECORDS SUMMARY | 2022-09-20 14:07 | XMS_ITS | Encounter Summary ---
:1965 Author Organization [facility] Address [address] [place] [address] Care Team Providers Name Role Phone Elsewhere, Pcp Primary Care Provider Unavailable Reason for Referral Outpatient (Routine) - Closed Specialty Diagnoses / Procedures Referred By Contact Refer red To Contact Orthopedic Surgery Diagnoses Pain Shoulder Left [facility] [address] [place] [phone] Referral ID Status Reason Start Date Expiration Date Visits Requ ested Visits Authorized [id number] Closed 04/22/2022 04/22/2023 1 1 Reason for Visit Reason Comments pre op orders Encounter Details Date Type Department Care Team Description 04/22/2022 Clinical Communication Department of Cyrus Polk op orders Orthopedic Surgery in Lilian Souza [place], [place] [address] [place] [address] 200 [place] [phone] [phone] Social History Tobacco Use Types Packs/Day Years [...] you attend denominational or Patient refused 2021 zoroastrian services? Do you belong to any clubs or No 05/17/2022 organizations such as denominational groups, unions, fraStorPool or athletic groups, or school groups? How [...] Diagnoses Orthopedic Surgery Outpatient Referral Routine Pain Chelyu pina Left Expected: Pre Op (clinic) Preoperative Exam [...] 05/17/2022 DTL Black/ mL/min/BSA 12:12 PM CDT Estonian Comment: ----ADDITIONAL INFORMATION---- Estimated GFR calculated using [...] [facility] - [address] [place], [place] [address] [place] [address] [facility] [address] Type and Screen (with [...] [facility] - [address] [place], [place] [address] [place] [address] [facility] [address] (ABNORMAL) CBC with Differential, Blood (05/17/2022 10:50 AM CDT) [facility] [employer] K12 Method Time Signature Hemoglobin 9.2 (L) 11.6 [...] e Number [facility] - [address] [place] [address] [place] [address] [facility] 200 [facility] SARS Coronavirus 2, Molecular Detection, PCR, Varies Asymptomatic (05/17/2022 10:26 AM CDT) [facility] Method Time Signature COVID-19, Swab, [...] ----ADDITIONAL INFORMATION---- This RT-PCR test using the [employer] SARS-Co V-2 Assay ( [employer].) performed on the [employer] Two Module System has received Emergency Use Authorization (EUA) by the U.S. Food and Drug Administration, and is modified from the rn community's instructions with a bridging study. Performance characteristics were verifie d by [facility] in a manner consistent with CLIA requirements. Visit the CDC website: https://www.cdc.g ov/coronavirus/ for the most recent guidelines on [facility] virus testing. Fact Sheet for Healthcare Providers: https://www.fda.gov/media/195005/downloa d Fact Sheet for Patients: https://www.fda.gov/media/417763/downloa d Specimen Anatomical Collection Method Collection Time Receive d Time (Source) Location / / Volume Laterality Varies 05/17/2022 10:26 05/17/2022 (Nasopharynx) AM CDT 10:52 AM CDT Alfredo Kamara LAB MICROBIOLOGY - GENERAL O PATERASARAH Performing Organization Address City/State/ZIP Code Phon e Number [facility] - [address] [place], [place] [address] [place] [address] [facility] [address] documented in this encounter Visit Diagnoses Diagnosis Pain Shoulder Left - Primary Preoperative Exam documented in this encounter Additional Health Concerns Assessment Noted Time PHQ-9 Depression Total Score: 16 02/11/2021 12:00 AM C DT documented as of this encounter Care Teams Tool Crib Supervisor Relationship Specialty Start Date End Date Elsewhere, Pcp PCP - General Family Medicine 12/25/21 documented as of this encounter
--- OUTSIDE RECORDS SUMMARY | 2022-09-20 14:07 | XMS_ITS | Encounter Summary ---
:1965 Author Organization [facility] Address [address] [place] [address] Care Team Providers Name Role Phone Elsewhere, Pcp Primary Care Provider Unavailable Reason for Visit Reason Comments Medication Question Encounter Details Date Type Department Care Team Description 03/08/2022 Clinical Communication Department of [facility] Orthopedic Surgery Cyrus Souza M.D. in [place], [address] [place] [address] [place] [address] [place], [place] [phone] (Work) [phone] Social History Tobacco Use Types Packs/Day Years [...] you attend voodoo or Patient refused 2021 sabianism services? Do [...] 03/08/2022 11:22 AM CDT Kylie, pharmacist at [facility] in [place] calls. She is wondering if you indeed want to fill it. Please call her back at [phone] Regarding the oxycodone script sent today---patient had [...] documented as of this encounter Care Teams Quality Rep Relationship Specialty Start Date End Date Elsewhere, Pcp PCP - General Family Medicine 12/25/21 documented as of this encounter
--- OUTSIDE RECORDS SUMMARY | 2022-09-20 14:07 | XMS_ITS | Encounter Summary ---
:1965 Author Organization [facility] Address [address] [place] [address] Care Team Providers Name Role Phone Elsewhere, Pcp Primary Care Provider Unavailable Encounter Details Date Type Department Care Team Description 04/21/2022 Clinical Communication Department of Cyrus Polk Orthopedic Surgery in Lilian Souza [place], [place] 200 [facility] 200 [place] [phone] [phone] Social History Tobacco Use Types Packs/Day Years [...] you attend religion or Patient refused 2021 worship services? Do [...] something else is going on . Angie [phone] documented in this encounter Plan of Treatment Not on filedocumented as of this encounter Visit Diagnoses Not on filedocumented in this encounter Additional Health Concerns Assessment Noted Time PHQ-9 Depression Total Score: 16 02/11/2021 12:00 AM C DT documented as of this encounter Care Teams Outside Plant Technician Relationship Specialty Start Date End Date Elsewhere, Pcp PCP - General Family Medicine 12/25/21 documented as of this encounter
--- OUTSIDE RECORDS SUMMARY | 2022-09-20 14:07 | XMS_ITS | Encounter Summary ---
:1965 Author Organization [facility] Address [address] [place] [address] Care Team Providers Name Role Phone Elsewhere, Pcp Primary Care Provider Unavailable Encounter Details Date Type Department Care Team Description 03/08/2022 Documentation Department of Orthopedic Melissa Mcdonald M.D. Surgery in [place], [place] [address] [place] [phone] Social History Tobacco [...] you attend muslim or Patient refused 2021 lutheran services? Do [...] as of this encounter Care Teams County Engineer Relationship Specialty Start Date End Date Elsewhere, Pcp PCP - General Family Medicine 12/25/21 documented as of this encounter
--- OUTSIDE RECORDS SUMMARY | 2022-09-20 14:07 | XMS_ITS | Encounter Summary ---
:[address] [facility] Address [address] [place] [address] Care Team Providers Name Role Phone Elsewhere, Pcp Primary Care Provider Unavailable Reason for Referral Outpatient (Routine) - Closed Specialty Diagnoses / Procedures Referred By Contact Refer red To Contact Diagnoses Arthroplasty Total Shoulder Replacement Status Post Left Alfredo Herrera O.P.A.-C. [facility] Procedures DX Shoulder Left Ingrowth Series 5 Views [address] [place] [phone] Referral ID Status Reason Start Date Expiration Date Visits Requ ested Visits Authorized [id number] Closed 02/25/2022 02/25/2023 1 1 Reason for Visit Outpatient (Routine) - Closed Specialty Diagnoses / Procedures Referred By Contact Refer red To Contact Diagnoses Arthroplasty Total Shoulder Replacement Status Post Left Alfredo Herrera O.P.A.-C. [facility] Procedures DX Shoulder Left Ingrowth Series 5 Views [address] [place] [phone] Referral ID Status Reason Start Date Expiration Date Visits Requ ested Visits Authorized [id number] Closed 02/25/2022 02/25/2023 1 1 Encounter Details Date Type Department Care Team Description 04/02/2022 Hospital Encounter Department of Alfredo Herrera Total Radiology, Anh Gonzales Shoulder Replacement [facility] in [address] [place] [address] Status Post Left [facility] [address] [place], [place] (Work) [address] [phone] Social History Tobacco Use Types Packs/Day Years [...] you attend religious or Patient refused 2021 baptist services? Do [...] THC multivit-min/iron/folic/ Take 1 tablet by 0 [id number] (HAIR, SKIN AND mouth daily. NAILS ADVANCED [...] documented as of this encounter Care Teams Leather Heel Breaster Relationship Specialty Start Date End Date Elsewhere, Pcp PCP - General Family Medicine 12/25/21 documented as of this encounter
--- OUTSIDE RECORDS SUMMARY | 2022-09-20 14:07 | XMS_ITS | Encounter Summary ---
:1965 Author Organization [facility] Address [address] [place] [address] Care Team Providers Name Role Phone Elsewhere, Pcp Primary Care Provider Unavailable Encounter Details Date Type Department Care Team Description 03/03/2022 Orders Only Pharmacy Prior Auth Ana Rosa Ying [phone] Social History Tobacco Use Types Packs/Day Years [...] documented as of this encounter Care Teams Transportation Technician Relationship Specialty Start Date End Date Elsewhere, Pcp PCP - General Family Medicine 12/25/21 documented as of this encounter
--- OUTSIDE RECORDS SUMMARY | 2022-09-20 14:07 | XMS_ITS | Encounter Summary ---
:1965 Author Organization [facility] Address [address] [place] [address] Care Team Providers Name Role Phone Elsewhere, Pcp Primary Care Provider Unavailable Reason for Referral Outpatient (Routine) - Closed Specialty Diagnoses / Procedures Referred By Contact Refer red To Contact Anesthesiology Diagnoses Anemia [facility] C.N.PBritton, M.S.N. [address] [place] [phone] Referral ID Status Reason Start Date Expiration Date Visits Requ ested Visits Authorized [id number] Closed 04/22/2022 04/22/2023 1 1 Encounter Details Date Type Department Care Team Description 04/22/2022 Orders Only Preoperative Evaluation Shauna Rubin (Primary Dx) Center in [facility] NIKKY Diaz [place], [place] M.S.N. [address] [place] [address] [place] [phone] [place], [place] [phone] Social History Tobacco Use Types Packs/Day Years [...] you attend tenriism or Patient refused 2021 anglican services? Do [...] 11:47 AM CDT Specimen Information: Specimen ID: [id number] Specimen Type: Blood Specimen Collection Start Date: 10:11 AM Specimen Received Date: 05/03/2022 10:53 AM Specimen ID: [id number] Specimen Type: Blood Specimen Collection Start Date: 10:11 AM Specimen Received Date: 05/03/2022 10:53 AM Specimen ID: [id number] Specimen Type: Blood Specimen Collection Start Date: 10:11 AM Specimen Received Date: 05/03/2022 10:53 AM Specimen ID: [id number] Specimen Type: Blood Specimen Collection Start Date: 10:11 AM Specimen Received Date: 05/03/2022 10:32 AM Specimen ID: [id number] Specimen Type: Blood Specimen Collection Start Date: 2 10:11 AM Specimen Received Date: 05/03/2022 11:44 AM Shauna Rubin APRN CBrittonNBetty., M.S.N. LAB BLOOD ADD-ON Performing Organization Address City/State/ZIP Code Phon e Number [facility] - [address] [place], [place] [address] [facility] [place] [address] [facility] [address] documented in this encounter Visit Diagnoses Diagnosis Anemia - Primary Anemia documented in this encounter Additional Health Concerns Assessment Noted Time PHQ-9 Depression Total Score: 16 02/11/2021 12:00 AM C DT documented as of this encounter Care Teams Aviation Metalsmith Relationship Specialty Start Date End Date Elsewhere, Pcp PCP - General Family Medicine 12/25/21 documented as of this encounter
--- OUTSIDE RECORDS SUMMARY | 2022-09-20 14:07 | XMS_ITS | Encounter Summary ---
:1965 Author Organization [facility] Address [address] [place] [address] Care Team Providers Name Role Phone Elsewhere, Pcp Primary Care Provider Unavailable Encounter Details Date Type Department Care Team Description 03/16/2022 Clinical Communication Department of Cyrus Polk Orthopedic Surgery in Lilian Souza [place], [place] 200 [facility] 200 [place] [address] [phone] Social History Tobacco Use Types Packs/Day Years [...] 12:15 PM CDT Michael, patient's rn case management from [facility], is calling hoping to speak to someone on Dr. Polk's surgical team to ensure that the patient is receiving the correct post-op care. Patient is set up for post op appointments at the beginning of March here. However, Michael is looking to speak to someone over the phone to ensure the patient is on the right track. Please call [phone]. Thank you. documented in this encounter Plan of Treatment Not on filedocumented as of this encounter Visit Diagnoses Not on filedocumented in this encounter Additional Health Concerns Assessment Noted Time PHQ-9 Depression Total Score: 16 02/11/2021 12:00 AM C DT documented as of this encounter Care Teams Warehouse Incentive Selector Relationship Specialty Start Date End Date Elsewhere, Pcp PCP - General Family Medicine 12/25/21 documented as of this encounter
--- OUTSIDE RECORDS SUMMARY | 2022-09-20 14:07 | XMS_ITS | Encounter Summary ---
:1965 Author Organization [facility] Address [address] [place] [address] Care Team Providers Name Role Phone Elsewhere, Pcp Primary Care Provider Unavailable Encounter Details Date Type Department Care Team Description 05/03/2022 Hospital Encounter Department of Laboratory Shauna Rubin, Anemia Medicine and Pathology, HOT DIP TINNING SUPERVISOR [facility] in [place], [place] [address] [place] [address] 200 [place] [phone] (Wo rk) Social History Tobacco Use Types [...] THC multivit-min/iron/folic/ Take 1 tablet by 0 [id number] (HAIR, SKIN AND mouth daily. NAILS ADVANCED [...] Venous) AM CDT 10:53 AM CDT Narrative [facility] - 05/03/2022 11:47 AM CDT Specimen Information: Specimen ID: [id number] Specimen Type: Blood Specimen Collection Start Date: 2 10:11 AM Specimen Received Date: 05/03/2022 10:53 AM Specimen ID: [id number] Specimen Type: Blood Specimen Collection Start Date: 10:11 AM Specimen Received Date: 05/03/2022 10:53 AM Specimen ID: [id number] Specimen Type: Blood Specimen Collection Start Date: 10:11 AM Specimen Received Date: 05/03/2022 10:53 AM Specimen ID: [id number] Specimen Type: Blood Specimen Collection Start Date: 2 10:11 AM Specimen Received Date: 05/03/2022 10:32 AM Specimen ID: [id number] Specimen Type: Blood Specimen Collection Start Date: 2 10:11 AM Specimen Received Date: 05/03/2022 11:44 AM Ricky Doyle APRN.N.P., M.S.N. LAB BLOOD ADD-ON Performing Organization Address City/State/ZIP Code Phon e Number [facility] - [address] [place], [place] [address] [facility] [place] [address] Laboratories-[facility] [address] documented in this encounter Visit Diagnoses Diagnosis Anemia documented in this encounter Additional Health Concerns Assessment Noted Time PHQ-9 Depression Total Score: 16 02/11/2021 12:00 AM C DT documented as of this encounter Care Teams Child & Adolescent Psychiatrist Relationship Specialty Start Date End Date Elsewhere, Pcp PCP - General Family Medicine 12/25/21 documented as of this encounter
--- OUTSIDE RECORDS SUMMARY | 2022-09-20 14:07 | XMS_ITS | Encounter Summary ---
:1965 Author Organization [facility] Address [address] [place] [address] Care Team Providers Name Role Phone Elsewhere, Pcp Primary Care Provider Unavailable Reason for Visit Reason Comments pre op orders Encounter Details Date Type Department Care Team Description 04/02/2022 Clinical Communication Department of Cyrus Polk op orders Orthopedic Surgery in Lilian Souza [place], [place] 200 [facility] 200 [place] [phone] Social History Tobacco Use Types Packs/Day Years [...] you attend yazidi or Patient refused 2021 christianity services? Do [...] documented as of this encounter Care Teams Big Data Analytics Lead Relationship Specialty Start Date End Date Elsewhere, Pcp PCP - General Family Medicine 12/25/21 documented as of this encounter
--- OUTSIDE RECORDS SUMMARY | 2022-09-20 14:07 | XMS_ITS | Encounter Summary ---
:1965 Author Organization [facility] Address [address] [place] [address] Care Team Providers Name Role Phone Elsewhere, Pcp Primary Care Provider Unavailable Encounter Details Date Type Department Care Team Description 03/12/2022 Orders Only Department of Melissa Mcdonald, Arthroplas ty Total Orthopedic Surgery in M.D. Should er Replacement [place], [place] Status Post Left [address] [facility] (Primary Dx) [place] [address] Social History Tobacco Use Types [...] documented as of this encounter Care Teams Train Station Server Relationship Specialty Start Date End Date Elsewhere, Pcp PCP - General Family Medicine 12/25/21 documented as of this encounter
--- OUTSIDE RECORDS SUMMARY | 2022-09-20 14:07 | XMS_ITS | Encounter Summary ---
:1965 Author Organization [facility] Address [address] [place] [address] Care Team Providers Name Role Phone Elsewhere, Pcp Primary Care Provider Unavailable Reason for Referral Outpatient (Routine) - Closed Specialty Diagnoses / Procedures Referred By Contact Refer red To Contact Diagnoses Painful Total Joint Arthroplasty Initial (HCC) Alfredo Herrera [place] Procedures ORS US-Guided aspiration/injection O.P.A.-C. 200 [place], [place] [address] Referral ID Status Reason Start Date Expiration Date Visits Requ ested Visits Authorized [id number] Closed 04/02/2022 04/02/2023 1 1 MRI/CAT/PET Scan (Routine) - Closed Specialty Diagnoses / Procedures Referred By Contact Refer red To Contact Radiology Diagnoses Painful Total Joint Arthroplasty Initial (HCC) Alfredo Herrera [place] Procedures CT Shoulder Left without IV Contrast O.P.A.-C. 200 [place], [place] [phone] Referral ID Status Reason Start Date Expiration Date Visits Requ ested Visits Authorized [id number] Closed 04/02/2022 04/02/2023 1 1 Reason for Visit Outpatient (Routine) - Closed Specialty Diagnoses / Procedures Referred By Contact Refer red To Contact Orthopedic Surgery Diagnoses Arthroplasty Total Shoulder Replacement Status Post [facility] O.PK[facility] [address] [place] [address] Referral ID Status Reason Start Date Expiration Date Visits Requ ested Visits Authorized [id number] Closed 02/25/2022 02/25/2023 1 1 Encounter Details Date Type Department Care Team Description 04/02/2022 Office Visit Department of Cyrus Polk Arthroplasty Total Shoulder Replacement Status Post Left; Orthopedic Surgery in [place] Painful Total Joint Arthroplasty Initial (HCC) [place], [place] [address] [facility] [address] [place] [phone] Social History Tobacco Use Types Packs/Day [...] you attend evangelical or Patient refused 2021 restorationism services? Do [...] Cyrus Polk M.D. CT CT Job ID: [id number] documented in this encounter Plan of Treatment [...] Number [facility] - [address] [place] [address] [facility] [place] [address] Laboratories-[facility] 200 [facility] (ABNORMAL) CBC without Differential (04/14/2022 10:42 AM CDT) [facility] gist Method Time Signature Hemoglobin 8.6 [...] [facility] [address] [place], [place] [address] [facility] [address] Laboratories-[facility] [address] [place] ARTHCS ASP/INJ MJR JT W US (04/14/2022 [...] documented as of this encounter Care Teams Compensation Director Relationship Specialty Start Date End Date Elsewhere, Pcp PCP - General Family Medicine 12/25/21 documented as of this encounter
--- OUTSIDE RECORDS SUMMARY | 2022-09-20 14:07 | XMS_ITS | Encounter Summary ---
:1965 Author Organization [facility] Address [address] [place] [address] Care Team Providers Name Role Phone Elsewhere, Pcp Primary Care Provider Unavailable Reason for Referral MRI/CAT/PET Scan (Routine) - Closed Specialty Diagnoses / Procedures Referred By Contact Refer red To Contact Radiology Diagnoses Painful Total Joint Arthroplasty Initial ([facility]) Alfredo Herrera [place] Procedures CT Shoulder Left without IV Contrast O.P.A.-C. [address] [place] [phone] Referral ID Status Reason Start Date Expiration Date Visits Requ ested Visits Authorized [id number] Closed 04/02/2022 04/02/2023 1 1 Reason for Visit MRI/CAT/PET Scan (Routine) - Closed Specialty Diagnoses / Procedures Referred By Contact Refer red To Contact Radiology Diagnoses Painful Total Joint Arthroplasty Initial ([facility]) Alfredo Herrera [place] Procedures CT Shoulder Left without IV Contrast O.P.A.-C. [address] [place] [phone] Referral ID Status Reason Start Date Expiration Date Visits Requ ested Visits Authorized [id number] Closed 04/02/2022 04/02/2023 1 1 Encounter Details Date Type Department Care Team Description 04/14/2022 Hospital Encounter Department of Alfredo Herrera Painful Total Joint Radiology, Emily HillA.-CBritton Arthroplasty Initial Building, in [address] [place] [address] ([facility]) [facility] [address] 200 [facility] [phone] [place], [place] (Work) [address] [phone] Social History Tobacco Use Types Packs/Day Years [...] THC multivit-min/iron/folic/ Take 1 tablet by 0 [id number] (HAIR, SKIN AND mouth daily. NAILS ADVANCED [...] as of this encounter Care Teams Clinic Manager Relationship Specialty Start Date End Date Elsewhere, Pcp PCP - General Family Medicine 12/25/21 documented as of this encounter
--- OUTSIDE RECORDS SUMMARY | 2022-09-20 14:08 | XMS_ITS | Encounter Summary ---
:[address] [facility] Address [address] [place] [address] Care Team Providers Name Role Phone Elsewhere, Pcp Primary Care Provider Unavailable Encounter Details Date Type Department Care Team Description 02/26/2022 Clinical Communication [facility] Phar Janet Sarmiento N, [address] [facility].Ph.T. [place], [place] [phone] [address] (Work) [phone] Social History Tobacco Use Types Packs/Day Years [...] you attend episcopal or Patient refused 2021 baptist services? Do [...] as of this encounter Care Teams Special Officer Automat Relationship Specialty Start Date End Date Elsewhere, Pcp PCP - General Family Medicine 12/25/21 documented as of this encounter
--- OUTSIDE RECORDS SUMMARY | 2022-09-20 14:08 | XMS_ITS | Encounter Summary ---
:1965 Author Organization [facility] Address [address] [place] [address] Care Team Providers Name Role Phone Elsewhere, [...] documented as of this encounter Care Teams Musculoskeletal Physician Relationship Specialty Start Date End Date Elsewhere, Pcp PCP - General Family Medicine 12/25/21 documented as of this encounter
--- OUTSIDE RECORDS SUMMARY | 2022-09-20 14:08 | XMS_ITS | Encounter Summary ---
:1965 Author Organization [facility] Address [address] [place] [address] Care Team Providers Name Role Phone Elsewhere, Pcp Primary Care Provider Unavailable Encounter Details Date Type Department Care Team Description 02/26/2022 Clinical Communication [facility] Austyn Breaux, Pharmacy [facility] [address] [facility] [place] [address] Social History Tobacco Use Types [...] you attend rastafari or Patient refused 2021 restorationist services? Do [...] documented as of this encounter Care Teams Stacker Driver Relationship Specialty Start Date End Date Elsewhere, Pcp PCP - General Family Medicine 12/25/21 documented as of this encounter
--- OUTSIDE RECORDS SUMMARY | 2022-09-20 14:08 | XMS_ITS | Encounter Summary ---
:1965 Author Organization [facility] Address [address] [place] [address] Care Team Providers Name Role Phone Elsewhere, Pcp Primary Care Provider Unavailable Reason for Visit Reason Comments Med Refill Encounter Details Date Type Department Care Team Description 03/02/2022 Refill Division of [facility] Ridge Vega M.D. Med Refill Internal Medicine, [place] 200 1 [facility] in [facility] [place] [address] [place] [address] [place] [address] [place] [address] Social History Tobacco Use [...] you attend yazdanism or Patient refused 2021 yarsanism services? Do [...] documented as of this encounter Care Teams Content Checker Relationship Specialty Start Date End Date Elsewhere, Pcp PCP - General Family Medicine 12/25/21 documented as of this encounter
--- OUTSIDE RECORDS SUMMARY | 2022-09-20 14:08 | XMS_ITS | Encounter Summary ---
:1965 Author Organization [facility] Address [address] [place] [address] Care Team Providers Name Role Phone Elsewhere, Pcp Primary Care Provider Unavailable Encounter Details Date Type Department Care Team Description 03/02/2022 Orders Only Pharmacy Prior Auth Sarmad Solano [phone] Social History Tobacco Use Types Packs/Day Years [...] you attend yazidism or Patient refused 2021 yazidism services? Do [...] documented as of this encounter Care Teams Electric Locomotive Firer/Fireman Relationship Specialty Start Date End Date Elsewhere, Pcp PCP - General Family Medicine 12/25/21 documented as of this encounter
--- OUTSIDE RECORDS SUMMARY | 2022-09-20 14:08 | XMS_ITS | Encounter Summary ---
:1965 Author Organization [facility] Address 200 [place] [address] Care Team Providers Name Role Phone Elsewhere, Pcp Primary Care Provider Unavailable Encounter Details Date Type Department Care Team Description 02/26/2022 Surgery [facility]ST [facility] OR Cyrus Polk, ARTHROPLASTY REPLACEMENT [address] [facility] [place] [address] 200 [facility] [phone] [place] [address] Social History Tobacco Use Types Packs/Day Years [...] or the highest technical, or vocational p [employer] degree you have received? Sex Assigned at [...] THC multivit-min/iron/folic/ Take 1 tablet by 0 [id number] (HAIR, SKIN AND mouth daily. NAILS ADVANCED [...] - 02/27/2022 8:05 AM CDT Orthopedic Service: [facility] Admission Day: 02/26/2022 SUBJECTIVE POD1. She [...] until 6 pm, please page the [facility] pager at [phone] For urgent matters from 6 pm until 6 am, please page Ortho House at [phone] Michael Chino M.D. - 02/26/2022 3:03 PM CDT Orthopedic Service: [facility] Admission Day: 02/26/2022 SUBJECTIVE [...] am until 6 pm, please page the [facility] pager at [phone] For urgent matters from 6 pm until 6 am, please page Ortho House at [phone] Clemente Buck, Pharm.D., R.Ph. - 02/26/2022 9:17 [...] Take 150 mg by mouth every morning. jzylhbsiwv-eqsbmmwziddzo-qgmf (ESGIC) 50-325-40 mg per tablet Past Week [...] 1 spray as needed. 5 mg THC multivit-min/iron/folic/hrp967 (HAIR, SKIN AND NAILS ADVANCED ORAL) 02/25/2022 [...] (HCC) ??? Nicotine Dependence Unspecified ??? Other Insurance Producer Current Drug Therapy ??? Direct Infection Of [...] Right Lives With: Alone Receives Help From: blending line attendant, Family, Friend(s) ADL Assistance: Required assistance ADL Assistance Comments: Gets help from PRICK STITCHER for her bath/shower and for her meals IADL/Homemaking Assistance: Required assistance IADL/Homemaking Assistance Comments: Gets help for housecleaning Driving: Independent Driving Comments: takes her cane and medical alert with her. Occupational Role: On disability Occupational Role Comments: Previously worked at a [employer] Prior Mobility/Functional Transfers Level of [place]: Modified independent Previous Transfer/Mobility Assistance Comments: Patient [...] during therapy session: yes Outcome Measures -[facility] Inpatient Short Form: AM-[facility] Basic Mobility (V.2) How much help [...] Climbing 3-5 steps with a railing?: None AM-[facility] Basic Mobility (V.2) Raw Score: 24 AM-[facility] Basic Mobility (V.2) Standardized Score: 57.68 Interpretation: Clinicians answer the -[facility] Inpatient Short Form based on observed [...] elsewhere status post placement antibiotic spacer. A sugar laboratory assistant was necessary for one or more [...] of antibiotic spacer, implantation of reverse arthroplasty, [id number] Cyrus Polk M.D. CT CT Job ID: [id number] documented in this encounter Plan of Treatment [...] Code Phon e Number [facility] - [address] [place], [place] [address] [facility] [place] [address] Laboratories-[facility] [address] (ABNORMAL) Basic Metabolic Panel [...] 02/26/2022 DTL Black/ mL/min/BSA 6:27 PM CDT Vincentian Comment: ----ADDITIONAL INFORMATION---- Estimated GFR [...] Code Phon e Number [facility] - [address] [place], [place] [address] [facility] [place] [address] Laboratories-[facility] [address] [facility] (ABNORMAL) CBC with Differential, Blood (02/26/2022 3:47 PM CDT) [facility] gist Method Time Signature Hemoglobin 8.8 [...] Code Phon e Number [facility] - 200 [place], [place] [address] [facility] [place] [address] Laboratories-[facility] 200 [...] Aerobe / Anaerobe+Susc (02/26/2022 1:00 PM CDT) [facility] gist Method Time Signature Bacteria Cult, No growth 03/12/2022 DTL Aerobe/Anaerob after 14 2:02 PM CDT e+Susc days of incubation. Specimen Anatomical Collection Method Collection Time Receive d Time (Source) Location / / Volume Laterality Shoulder, Left 02/26/2022 1:00 PM 022 1:41 CDT PM CDT Comment: Specimen Source Site: Tissue 1 Narrative [facility] - 03/12/2022 2:02 PM CDT Bacterial Culture: Placed in Bactec aero bic and Bactec anaerobic bottles Cyrus Polk M.D. LAB MICROBIOLOGY - GENERAL O RDERABLES Performing Organization Address [facility] Phon e Number [facility] - 200 [place], [place] [address] [facility] [place] [address] [facility] 200 [facility] Bacteria Cult, Aerobe / Anaerobe+Susc (02/26/2022 1:00 PM CDT) [employer] Method Time Signature Bacteria Cult, No growth 03/12/2022 DTL Aerobe/Anaerob after 14 2:02 PM CDT e+Susc days of incubation. Specimen Anatomical Collection Method Collection Time Receive d Time (Source) Location / / Volume Laterality Shoulder, Left 02/26/2022 1:00 PM 022 1:38 CDT PM CDT Comment: Specimen Source Site: Tissue 3 Narrative [facility] - 03/12/2022 2:02 PM CDT Bacterial Culture: Placed in Bactec aero bic and Bactec anaerobic bottles Cyrus Polk M.D. LAB MICROBIOLOGY - GENERAL O RDSONIA Performing Organization Address City/[facility] Phon e Number [facility] - 200 [place], [place] [address] [facility] [place] [address] Bacteria Cult, Aerobe / Anaerobe+Susc (02/26/2022 1:00 PM CDT) [employer] Method Time Signature Bacteria Cult, No growth 03/12/2022 DTL Aerobe/Anaerob after 14 2:02 PM CDT e+Susc days of incubation. Specimen Anatomical Collection Method Collection Time Receive d Time (Source) Location / / Volume Laterality Shoulder, Left 02/26/2022 1:00 PM 022 1:36 CDT PM CDT Comment: Specimen Source Site: Tissue 2 Narrative [facility] - 03/12/2022 2:02 PM CDT Bacterial Culture: Placed in Bactec aero bic and Bactec anaerobic bottles Cyrus Polk M.D. LAB MICROBIOLOGY - GENERAL O RDERABLES Performing Organization Address City/State/ZIP Code Phon e Number [facility] - 200 [place], [place] [address] [facility] [place] [address] Laboratories-[facility] [address] [facility] Surgical Pathology, Frozen Lab (02/26/2022 [...] permanent sections. ??Grossed by Nan Ledezma M.S., AMELIA([facility]). Block Summary A Left shoulder 03/01/2022 METH [...] Code Phon e Number [facility] - [address] [place], [place] [address] [place] [address] Laboratories-[facility] 200 [...] 02/26/2022 02/27/2022 acetaminophen tablet 1,000 mg (TYLENOL) 2181 (Given - Provider: Tanesha Butt)1501 (Given - Provider: Tanesha Butt) 0432 (Given - Provider: Sharifa RockNBritton)1104 (Given - Provider: Catalina Mccloud RBetsy) 1,000 [...] Butt) 043 (New Bag - Provider: Lauren rosa, RBrittonNBritton) 2 g, intravenous, at 200 mL/hr, [...] 001 (Not Given - Provider: Lauren garcia R.N. - Reason: Contraindicated)0606 (Given - Provider: Lauren Mckeon RBetsy) 25 mg, oral, Every 6 hours, First dose on Tue02/26/22 at 1800 FLUoxetine capsule 80 mg (PROzac) 0825 (Given - Provider: Sharifa ArcherNBritton) 80 mg, oral, Daily, First dose on [...] (COMPLETED) 1137 (Given - Provider: Donna Mercado R.N.) 1 mg, intravenous, Once, On Tue02/26/22 at [...] Provider: Tanesha Butt) 0825 (Given - Provider: Sharifa ArcherN.) 1 tablet, oral, 2 times daily, First [...] IVPB (COM PLETED) 1251 (Given - Provider: Teajl Gonzalez RBetsy) 1,000 mg (rounded from 1,050 mg = [...] (CANCELED) 1129 (New Ba g - Provider: Sharifa AmadorNBritton)1212 (Stopped - Provider: Tejal Gonzalez R.N.) 20 [...] mg of calcium, oral, Every 2 hour DE N, indigestion, Starting on Tue02/26/22 at 1451, [...] as of this encounter Care Teams Hotel Or Motel Cleaning Supervisor Relationship Specialty Start Date End Date Elsewhere, Pcp PCP - General Family Medicine 12/25/21 documented as of this encounter
--- OUTSIDE RECORDS SUMMARY | 2022-09-20 14:08 | XMS_ITS | Encounter Summary ---
:1965 Author Organization [facility] Address [address] [place] [address] Care Team Providers Name Role Phone Elsewhere, Pcp Primary Care Provider Unavailable Encounter Details Date Type Department Care Team Description 03/02/2022 Orders Only Pharmacy Prior Auth Ana Rosa Ying [phone] Social History Tobacco Use Types Packs/Day Years [...] you attend druze or Patient refused 2021 yazidism services? Do [...] documented as of this encounter Care Teams Commuter Pilot Relationship Specialty Start Date End Date Elsewhere, Pcp PCP - General Family Medicine 12/25/21 documented as of this encounter
--- OUTSIDE RECORDS SUMMARY | 2022-09-20 14:08 | XMS_ITS | Encounter Summary ---
:1965 Author Organization [facility] Address [address] [place] [address] Care Team Providers Name Role Phone Elsewhere, Pcp Primary Care Provider Unavailable Reason for Referral MRI/CAT/PET Scan (Routine) - Closed Specialty Diagnoses / Procedures Referred By Contact Refer red To Contact Radiology Diagnoses Painful Total Joint Arthroplasty Initial ([facility]) Michael Chino M.D. [facility] Procedures CT Shoulder Left without IV Contrast 200 [place] [address] Referral ID Status Reason Start Date Expiration Date Visits Requ ested Visits Authorized [id number] Closed 02/25/2022 02/25/2023 1 1 Reason for Visit MRI/CAT/PET Scan (Routine) - Closed Specialty Diagnoses / Procedures Referred By Contact Refer red To Contact Radiology Diagnoses Painful Total Joint Arthroplasty Initial ([facility]) Michael Cihno M.D. [facility] Procedures CT Shoulder Left without IV Contrast [address] [place] [phone] Referral ID Status Reason Start Date Expiration Date Visits Requ ested Visits Authorized [id number] Closed 02/25/2022 02/25/2023 1 1 Encounter Details Date Type Department Care Team Description 02/25/2022 Hospital Encounter Department of Michael Chino Total Joint Radiology, Seevriano Celaya M.D. Arthropl [facility]) [place], [place] [address] [place] [address] Social History Tobacco Use Types Packs/Day Years [...] you attend buddhist or Patient refused 2021 mormon services? Do [...] THC multivit-min/iron/folic/ Take 1 tablet by 0 [id number] (HAIR, SKIN AND mouth daily. NAILS ADVANCED [...] documented as of this encounter Care Teams Resistance Brazer Relationship Specialty Start Date End Date Elsewhere, Pcp PCP - General Family Medicine 12/25/21 documented as of this encounter
--- OUTSIDE RECORDS SUMMARY | 2022-09-20 14:08 | XMS_ITS | Encounter Summary ---
:1965 Author Organization [facility] Address [address] [place] [address] Care Team Providers Name Role Phone Elsewhere, Pcp Primary Care Provider Unavailable Reason for Referral Medication Prior Authorization - Denied Specialty Diagnoses / Procedures Referred By Contact Refer red To Contact Michael Chino M.D. Referral ID Status Reason Start Date Expiration Date Visits Requ ested Visits Authorized [id number] Denied 1 1 Encounter Details Date Type Department Care Team Description 02/26/2022 - Hospital Encounter [facility] Jam, Shoulder Joint Disorder Left; 02/27/2022 Hospital, Anabaptist Cyrus Souza M.D. Pain Shoulder Left [facility] [address] [facility] [place], [place] Floor [address] [address] [facility] [phone] [place], [place] (Work) [phone] Social History Tobacco Use [...] you attend rastafarian or Patient refused 2021 congregation services? Do you belong to any clubs or No 05/17/2022 organizations such as rastafarian groups, unions, fraGraftys or athletic groups, or school groups? How [...] THC multivit-min/iron/folic/ Take 1 tablet by 0 [id number] (HAIR, SKIN AND mouth daily. NAILS ADVANCED [...] - 02/27/2022 8:05 AM CDT [facility] Ad[facility] Day: 02/26/2022 SUBJECTIVE POD1. [...] am until 6 pm, please page the [facility] pager at [phone] For urgent matters from 6 pm until 6 am, please page [facility] at [phone] Michael Chino M.D. - 02/26/2022 3:03 PM CDT Orthopedic Service: [facility] Admission Day: 02/26/2022 SUBJECTIVE [...] am until 6 pm, please page the [facility] pager at [phone] For urgent matters from 6 pm until 6 am, please page [facility] at [phone] Clemente Buck, Pharm.D., R.Ph. - 02/26/2022 9:17 [...] Take 150 mg by mouth every morning. qpxiyryqsa-fqmnnjamnejlz-taga (ESGIC) 50-325-40 mg per tablet Past Week [...] 1 spray as needed. 5 mg THC multivit-min/iron/folic/[id number] (HAIR, SKIN AND NAILS ADVANCED ORAL) 02/25/2022 [...] (HCC) ??? Nicotine Dependence Unspecified ??? Other Journeyman Patternmaker Current Drug Therapy ??? Direct Infection Of [...] Receives Help From: supervisor airplane flight attendant, Family, Friend(s) ADL Assistance: Required assistance ADL Assistance Comments: Gets help from SOLUTION COORDINATOR for her bath/shower and for her meals IADL/Homemaking Assistance: Required assistance IADL/Homemaking Assistance Comments: Gets help for housecleaning Driving: Independent Driving Comments: takes her cane and medical alert with her. Occupational Role: On disability Occupational Role Comments: Previously worked at a [employer] Prior Mobility/Functional Transfers Level of [place]: Modified independent Previous Transfer/Mobility Assistance Comments: Patient [...] during therapy session: yes Outcome Measures AM-[facility] Inpatient Short Form: AM-PAC Basic Mobility [...] Score: 57.68 Interpretation: Clinicians answer the -[facility] Inpatient Short Form based on observed [...] Prescriptions were sent and filled at the [facility] pharmacy. Catalina Mccloud R.N. - 02/27/2022 [...] elsewhere status post placement antibiotic spacer. A vet assistant was necessary for one or more [...] be placed with approximately 70% contact with [place] bone. The more superior aspect of the [...] of antibiotic spacer, implantation of reverse arthroplasty, [id number] Cyrus Polk M.D. CT CT Job ID: [id number] documented in this encounter Plan of Treatment [...] Address City/State/[facility] Code Phon e Number [facility] - [address] [place], [place] [address] [facility] [place] [place] [address] Laboratories-[facility] [address] [facility] (ABNORMAL) Basic Metabolic Panel (02/26/2022 3:47 [...] 02/26/2022 DTL Black/ mL/min/BSA 6:27 PM CDT Citizen Of [place] Comment: [...] Address City/State/ZIP Code Phon e Number [facility] - [address] [place] [address] [facility] [place] [address] [facility] 200 [facility] (ABNORMAL) CBC with Differential, Blood (02/26/2022 3:47 PM CDT) [facility] Method Time Signature Hemoglobin 8.8 (L) 11.6 [...] Address City/State/ZIP Code Phon e Number [facility] - [address] [place] [address] [facility] [place] [address] Laboratories-[address] DX Shoulder Left 1 View (02/26/2022 [...] PM CDT) [facility] Method Time Signature Bacteria Cult, No growth 03/12/2022 DTL Aerobe/Anaerob after 14 2:02 PM CDT e+Susc days of incubation. Specimen Anatomical Collection Method Collection Time Receive d Time (Source) Location / / Volume Laterality Shoulder, Left 02/26/2022 1:00 PM 022 1:41 CDT PM CDT Comment: Specimen Source Site: Tissue 1 Narrative [facility] [place] - 03/12/2022 2:02 PM CDT Bacterial Culture: Placed in Bactec aero bic and Bactec anaerobic bottles Cyrus Polk M.D. LAB MICROBIOLOGY - GENERAL O MARY Performing Organization Address City/[facility] Phon e Number [facility] - [address] [place], [place] [address] [facility] [place], [place] [phone] [place] [address] 200 [facility] Bacteria Cult, Aerobe / Anaerobe+Susc (02/26/2022 1:00 PM CDT) [facility] Method [place] Signature Bacteria Cult, No growth 03/12/2022 DTL Aerobe/Anaerob after 14 2:02 PM CDT e+Susc days of incubation. Specimen Anatomical Collection Method Collection Time Receive d Time (Source) Location / / Volume Laterality Shoulder, Left 02/26/2022 1:00 PM 022 1:38 CDT PM CDT Comment: Specimen Source Site: Tissue 3 Narrative [facility] [place] - 03/12/2022 2:02 PM CDT Bacterial Culture: Placed in Bactec aero bic and Bactec anaerobic bottles Cyrus Polk M.D. LAB MICROBIOLOGY - GENERAL O MARY Performing Organization Address City/[facility] Phon e Number [facility] - [address] [place], [place] [address] [facility] [place], [place] [phone] [place] [address] 200 [facility] Bacteria Cult, Aerobe / Anaerobe+Susc (02/26/2022 1:00 PM CDT) Patholo gist Method Time Signature Bacteria Cult, No growth 03/12/2022 DTL Aerobe/Anaerob after 14 2:02 PM CDT e+Susc days of incubation. Specimen Anatomical Collection Method Collection Time Receive d Time (Source) Location / / Volume Laterality Shoulder, Left 02/26/2022 1:00 PM 022 1:36 CDT PM CDT Comment: Specimen Source Site: Tissue 2 Narrative [facility] - [facility] - 03/12/2022 2:02 PM CDT Bacterial Culture: Placed in Bactec aero bic and Bactec anaerobic bottles Cyrus Polk M.D. LAB MICROBIOLOGY - GENERAL O RDERABLES Performing Organization Address City/State/ZIP Code Phon e Number [facility] - [address] [place] [address] [address] [place] [address] [facility] 200 [facility] Surgical Pathology, Frozen Lab (02/26/2022 1:00 PM [...] permanent sections. ??Grossed by Nan Ledezma M.S., PA([facility]). Block Summary A Left shoulder 03/01/2022 METH [...] Address City/State/ZIP Code Phon e Number [facility] - [address] [place], [place] [address] [facility] [place] [place] [address] [facility] [address] [...] R.NBritton - Reason: Contraindicated)0606 (Given - Provider: Laurne Mckeon R.NBritton) 25 mg, oral, Every 6 [...] (COMPLETED) 1137 (Given - Provider: Donna Mercado RBirttonNBritton) 1 mg, intravenous, Once, On Tue02/26/22 at [...] 2 hour SD N, indigestion, Starting on Tue02/26/22 at 1451, [...] as of this encounter Care Teams Mobile Nurse Relationship Specialty Start Date End Date Elsewhere, Pcp PCP - General Family Medicine 12/25/21 documented as of this encounter
--- OUTSIDE RECORDS SUMMARY | 2022-09-20 14:08 | XMS_ITS | Encounter Summary ---
:1965 Author Organization [facility] Address [address] [place] [address] Care Team Providers Name Role Phone Elsewhere, Pcp Primary Care Provider Unavailable Reason for Referral Outpatient (Routine) - Closed Specialty Diagnoses / Procedures Referred By Contact Refer red To Contact Diagnoses Arthroplasty Total Shoulder Replacement Status Post Left Alfredo Herrera O.P.A.-C. [facility] Procedures DX Shoulder Left Ingrowth Series [address] Views [address] [place] [phone] Referral ID Status Reason Start Date Expiration Date Visits Requ ested Visits Authorized [id number] Closed 02/25/2022 02/25/2023 1 1 Outpatient (Routine) - Closed Specialty Diagnoses / Procedures Referred By Contact Refer red To Contact Orthopedic Surgery Diagnoses Arthroplasty Total Shoulder Replacement Status Post Left Alfredo Herrera [facility] Anh 200 [place] [address] Referral ID Status Reason Start Date Expiration Date Visits Requ ested Visits Authorized [id number] Closed 02/25/2022 02/25/2023 1 1 Scheduling Instructions 6 wk f/u L TSA Reason for Visit Reason Comments Pre-visit Testing Orders Encounter Details Date Type Department Care Team Description 02/25/2022 Clinical Communication Department of Jam, Pre- visit Testing Orthopedic Surgery Cyrus Souza M.D. Orders in [place], [address] [place], [place] [address] [facility] [address] [place], [place] [phone] (Work) [phone] Social History Tobacco Use Types Packs/Day Years [...] attend latter day or Patient refused 2021 scientology services? Do [...] Priority Associated Diagnoses Order [facility] Orthopedic Surgery Outpatient Referral Routine Arthroplasty [...] documented as of this encounter Care Teams Finishing Frame Runner Relationship Specialty Start Date End Date Elsewhere, Pcp PCP - General Family Medicine 12/25/21 documented as of this encounter
--- OUTSIDE RECORDS SUMMARY | 2022-09-20 14:08 | XMS_ITS | Encounter Summary ---
:1965 Author Organization [facility] Address [address] [place] [address] Care Team Providers Name Role Phone Elsewhere, Pcp Primary Care Provider Unavailable Reason for Visit Reason Comments Medication Problem Encounter Details Date Type Department Care Team Description 03/01/2022 Clinical Communication Department of Jam [facility] Orthopedic Surgery Cyrus Souza M.D. in [place], [address] [place] [address] [place] [address] [place], [place] [phone] (Work) [phone] Social History Tobacco Use Types Packs/Day Years [...] you attend jewish or Patient refused 2021 orthodox services? Do [...] 12:04 PM CDT PIPER. Received fax from [employer] 03-03-22 indicating the doxycycline [facility] 100 mg tab is approved through 11/27/2022. Telephone Encounter - Cyrus Polk M.D. - 03/02/2022 7:45 AM CDT Please see below Thank you Telephone Encounter - Radha Suh - 03/01/2022 3:36 PM CDT Regina pharmacist working for the insurance company calls regarding the doxycycline hyclate (DORYX) 100 mg EC tablet [[id number]] Script. This is not in their formulary. She has several questions to ask to consider approving this. Please call Regina de jesus [phone], ext [phone] Reference # [id number] documented in this encounter Plan of Treatment Not on filedocumented as of this encounter Visit Diagnoses Not on filedocumented in this encounter Additional Health Concerns Assessment Noted Time PHQ-9 Depression Total Score: 16 02/11/2021 12:00 AM C DT documented as of this encounter Care Teams Typesetting Supervisor Relationship Specialty Start Date End Date Elsewhere, Pcp PCP - General Family Medicine 12/25/21 documented as of this encounter
--- OUTSIDE RECORDS SUMMARY | 2022-09-20 14:08 | XMS_ITS | Encounter Summary ---
:1965 Author Organization [facility] Address [address] [place] [address] Care Team Providers Name Role Phone Elsewhere, Pcp Primary Care Provider Unavailable Reason for Referral MRI/CAT/PET Scan (Routine) - Closed Specialty Diagnoses / Procedures Referred By Contact Refer red To Contact Radiology Diagnoses Painful Total Joint Arthroplasty Initial ([facility]) Michael Chino M.D. [facility] Procedures CT Shoulder Left without IV Contrast [address] [place] [address] Referral ID Status Reason Start Date Expiration Date Visits Requ ested Visits Authorized [id number] Closed 02/25/2022 02/25/2023 1 1 Encounter Details Date Type Department Care Team Description 02/25/2022 Orders Only Department of Michael Chino Painful T otal Joint Orthopedic Surgery in [place].Neri Arthro plasty Initial [place], [place] ([facility]) [address] [place] [address] Social History Tobacco Use Types Packs/Day Years [...] you attend religious or Patient refused 2021 restoration services? Do you belong to any clubs or No 05/17/2022 organizations such as religious groups, [employer], [employer] or athletic groups, or school groups? How [...] as of this encounter Care Teams Electric Deicer Inspector Relationship Specialty Start Date End Date Elsewhere, Pcp PCP - General Family Medicine 12/25/21 documented as of this encounter
--- OUTSIDE RECORDS SUMMARY | 2022-09-20 14:08 | XMS_ITS | Encounter Summary ---
:1965 Author Organization [facility] Address [address] [place] [address] Care Team Providers Name Role Phone Elsewhere, Pcp Primary Care Provider Unavailable Encounter Details Date Type Department Care Team Description 03/02/2022 Orders Only Pharmacy Prior Auth [place] [facility] [phone] Social History Tobacco Use Types Packs/Day Years [...] you attend methodist or Patient refused 2021 jew services? Do [...] as of this encounter Care Teams Data Entry Processor Relationship Specialty Start Date End Date Elsewhere, Pcp PCP - General Family Medicine 12/25/21 documented as of this encounter
--- OUTSIDE RECORDS SUMMARY | 2022-09-20 14:08 | XMS_ITS | Encounter Summary ---
:1965 Author Organization [facility] Address [address] [place] [address] Care Team Providers Name Role Phone Elsewhere, Pcp Primary Care Provider Unavailable Encounter Details Date Type Department Care Team Description 02/26/2022 Clinical Communication [facility] Pharmacy Blanca Galan Eisenberg C.Ph.T. [address] [facility] [phone] [place], [place] (Work) [phone] Social History Tobacco Use [...] you attend yazidism or Patient refused 2021 pentecostalism services? Do [...] as of this encounter Care Teams Materials Specialist Relationship Specialty Start Date End Date Elsewhere, Pcp PCP - General Family Medicine 12/25/21 documented as of this encounter
--- OUTSIDE RECORDS SUMMARY | 2022-09-20 14:08 | XMS_ITS | Encounter Summary ---
:[address] [facility] Address [address] [place] [address] Care Team Providers Name Role Phone Elsewhere, Pcp Primary Care Provider Unavailable Encounter Details Date Type Department Care Team Description 02/26/2022 Anesthesia Event RST [facility] OR Kaushik Carpenter, [address] [facility] M.BBritt[place] [phone] [facility] [phone] [place] [address] (Wo rk) Anesthesia Record Procedure Summary Procedure [...] h andoff to the receiving staff during [facility] we 1. Identified the patient 2. [...] 02/26 1421 by Placement Time: 1221 Tejal Gonzlaez Popp e, Kathryn L, (created via procedure TY Cabrera APRN [...] you attend jew or Patient refused 2021 mormon services? Do [...] technical, or vocational p [facility] degree you have received? Sex Assigned at Date Recorded Female 03/01/2019 10:12 AM CDT documented as of this encounter OR Notes Anesthesia Postprocedure Evaluation - Kaushik Carpenter M.B., Ch.B. - 02/26/2022 3:19 PM CDT Patient: Angie Mosquera Procedure Summary Date: 02/26/22 Room / Location: [address] / [facility] [place], [place] Anesthesia Start: 1212 Anesthesia Stop: 143 [...] ETT location: oral VL device: glide scope [place] scope blade size: 3 Adult tube size: [...] Pre-op diagnosis: Degenerative joint disease left. Location: [address] / [facility] [place], [place] Providers: Cyrus Polk M.D. Pertinent components [...] or through an interpreter for the deaf. Risks/Benefits/Alternatives of Blood transfusion discussed with patient [...] fellow participated in the procedure, and the client care consultant was present for the entire procedure. [...] procedure ar e in the results section. OK US GUIDE PLC NDL Routine 02/26/2022 11:53 Resu lts for this AM CDT procedure are i n the results section. OK INJ ANES BRACHIAL Routine 02/26/2022 11:53 Res [...] Kaushik Carpenter M.B., Ch.B. 3. Juana Silva SUPERVISOR PHOSPHATIC FERTILIZER, RAMP MANAGER Patient location during procedure: OR / Procedure Area PROCEDURE DETAILS: Mask difficulty assessment: easy mask Final airway type: video laryngoscope Laryngeal Manipulation: no ?? Final best view of glottic structures - Cormack/Lehane Score: grade 1 ETT location: oral VL device: glide scope [place] scope blade size: 3 Adult tube size: [...] ATTESTATION STATEMENT Kaushik Carlos, Ch.B. ANESTHESIA ORDERABLES [place] INJ ANES BRACHIAL PLEX, [place] US GUIDE PLC NDL, MC ANE NERVE [...] fellow participated in the procedure, and the client care consultant was present for the entire procedure. [...] documented as of this encounter Care Teams Hvac Service Manager Relationship Specialty Start Date End Date Elsewhere, Pcp PCP - General Family Medicine 12/25/21 documented as of this encounter
--- OUTSIDE RECORDS SUMMARY | 2022-09-20 14:09 | XMS_ITS | Encounter Summary ---
:1965 Author Organization [facility] Address [address] [place] [address] Care Team Providers Name Role Phone Elsewhere, Pcp Primary Care Provider Unavailable Reason for Visit Reason Comments OPAT Care Coordination Encounter Details Date Type Department Care Team Description 01/22/2022 Clinical Communication Section of Steven Dennis (Care Infectious Diseases E, R.N. Coordination) in [place], [facility] [place], [place] [address] [place] [address] [place], [place] [phone] (Work) [phone] Social History Tobacco Use Types Packs/Day Years [...] you attend scientologist or Patient refused 2021 christian services? Do [...] IR. ??Is she able to come to [place] for IR PICC placement? ??If not, we'll [...] I spoke to Carolynn, the nurse at [facility]. She spoke to their wound care nurse and she would liketo try some different dressings first before they move the PICC to the chest. They cannot place a PICC in the chest in [place], so if needed, the patient would have to come to [place]. The patientwill be there at 2 pm today. She will call back with the patient so we all can come up with a plan together. Addendum: We missed a call from Carolynn, infusion nurse at [facility]. Her message stated that PICCsite care was performed and the site looks better. The wound care team has a plan and is hoping thatshe can keep her current PICC. RETE BATCHER Telephone Encounter - Tejal Rudolph R.N. - 01/22/2022 4:46 PM CONCRETE BATCHER I have been unable to reach the patient, but I notified nurse Carolynn at [facility] of Dr. Boris Chaidez's recommendation, that they could try moving the line to the other arm and use a midline but avoid a chest PICC. I faxed the order for midline placement. Nurse Carolynn at [place] questioned whether the midline could be moved to the other (left) arm, because patient wears a sling on that arm. RETE BATCHER Telephone Encounter - Steven Dennis R.N. - [...] She did get a special dressing from [facility] to use, but it doesn't seem to be helping. Dressing was changed at [facility] today and they applied some guaze to help with the drainage. 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
--- OUTSIDE RECORDS SUMMARY | 2022-09-20 14:09 | XMS_ITS | Encounter Summary ---
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 [address] [place] [phone] Referral ID Status Reason Start Date Expiration Date Visits V isits Requested Authorized [id number] Authorized 01/01/2022 01/01/2023 1 1 CTOR OF RESERVATIONS Encounter Details Date Type Department Care Team Description 12/30/2021 - Hospital Encounter [facility] Kulwant Polk M.D. [address] [place] [phone] Pain Shoulder Left (Primary Dx); 01/01/2022 Hospital, Kennedi Roa MPAS, P.A.-C. [address] [place] [phone] Shoulder Joint Disorder Left; [facility] Direct Inf ection Of Left Shoulder In Infectious And Parasitic Diseases Classified Elsewhere (HCC) Building, Eighth Floor [address] [place] [id number] Social History Tobacco Use Types Packs/Day Years [...] you attend islam or Patient refused 2021 mandaen services? Do [...] Comments Blood Pressure 141/91 01/01/2022 4:26 PM DIRECTOR OF RESERVATIONS Pulse 95 01/01/2022 4:26 PM DIRECTOR OF RESERVATIONS Temperature 36.8 ??C (98.2 ??F) 01/01/2022 4:26 PM DIRECTOR OF RESERVATIONS Respiratory Rate 18 01/01/2022 4:26 PM DIRECTOR OF RESERVATIONS Oxygen Saturation 93% 01/01/2022 4:26 PM DIRECTOR OF RESERVATIONS Inhaled Oxygen Concentration - - Weight 69.9 kg (154 lb 1.6 12/30/2021 11:22 AM oz) DIRECTOR OF RESERVATIONS Height 150.5 cm (4' 11.25) 12/30/2021 11:22 AM no shoe s/boots DIRECTOR OF RESERVATIONS Body Mass Index 30.86 12/30/2021 11:22 AM DIRECTOR OF RESERVATIONS documented in this encounter Discharge Summaries Dario Carrera M.D. - 01/01/2022 8:50 AM CST DISCHARGE SUMMARY BRIEF OVERVIEW Hospital: [facility] Discharge Provider: Cyrus Polk M.D. Primary [...] were provided to the patient and caregiver(s). CTOR OF RESERVATIONS documented in this encounter Discharge Instructions AttachmentsThe following attachments cannot be sent through Care Everywhere. Continuous Nerve-Block Infusion System: Often called a ???pain pump?? (Slovenian) documented in this encounter Medications at Time [...] needed. multivit-min/iron/folic/ Take 1 tablet by 0 [id number] (HAIR, SKIN AND mouth daily. NAILS ADVANCED [...] mg by mouth 0 /12/202002/26/2022 at bedtime. cholecalciferol (VITAMIN Take 125 mcg [...] CST Post Anesthesia Assessment Note Patient: Angie Mosuqera General Info Post-procedure day: 3 Follow-up type: [...] CST Post Anesthesia Assessment Note Patient: Angie Mosuqera General Info Post-procedure day: 4 Follow-up type: outpatient regional Regional Block Information Description/location: interscalene Laterality: left Rate (mL/hour): 6 (Bupivacaine 0.2% On-Q) Overall Comments Tried reaching the patient today. Unable to do this. Her nerve catheter should have been removed this morning when she got up for the day. CTOR OF RESERVATIONS Ruth Gonzalez P.T., D.P.T. - 01/01/2022 4:29 [...] mask during therapy session: no Outcome Measures [facility] Inpatient Short Form: -[facility] Basic Mobility (V.2) How much help [...] 3-5 steps with a railing?: A Little AM-[facility] Basic Mobility (V.2) Raw Score: 23 AM-PAC Basic Mobility (V.2) Standardized Score: 50.88 Interpretation: Clinicians answer the AM-[facility] Inpatient Short Form based on observed [...] quad cane since it is not available [facility] by prescription. Barriers to Discharge Home: [...] (min): 23 min Ruth Gonzalez P.T., D.P.T. CTOR OF RESERVATIONS Elvira Duncan R.N. - 01/01/2022 3:21 PM [...] educational pamphlet Continuous Nerve-Block Infusion System ( [id number]).?? Discussed at home removal of nervecatheter, signs [...] our ownership and financial relationship of the [facility] beds/home health & hospice agencies. Reviewed insurance [...] Selected Services Address Phone Fax Patient Preferred [facility] [phone], [place] [address] -- Contact: Intake NURSING: - Adjust [...] draws will be managed by Outpatient Facility: [facility] Address: [address] , [place], [place] Contact: Princess They will provide IV [...] continue to follow. Joe Ervin, M.S.WBritton 01/01/2022 CTOR OF RESERVATIONS Gucci Salvador M.D. - 01/01/2022 10:45 AM [...] questions answered to patient's satisfaction. Please page [phone] for questions. 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 [phone] CTOR OF RESERVATIONS Pamela Crawford, DBritton, R.Ph. - 01/01/2022 10:14 AM CST Pharmacist [...] on post-operative opioids Pamela Crawford PharmBrittonDBritton, R.Ph. [phone] CTOR OF RESERVATIONS Jose Guadalupe Nixon M.D. - 01/01/2022 8:31 [...] Date/Time Bacteria / Mandi Culture, Blood #2 [[id number]] Collected: 12/31/21 1604 Lab Status: In process Specimen: Blood, Peripheral Draw Updated: 12/31/21 1651 Narrative: Received Bactec aerobic and Bactec anaerobic bottles Specimen Information: Specimen ID: [id number] Specimen Source: Blood, Peripheral Draw Specimen Comment: Specimen Source Site: Blood Specimen Collection Start Date: 12/31/2021 4:05 PM Specimen Received Date: 12/31/2021 4:51 PM Specimen ID: [id number] Specimen Source: Blood, Peripheral Draw Specimen Comment: Specimen Source Site: Blood Specimen Collection Start Date: 12/31/2021 4:05 PM Specimen Received Date: 12/31/2021 4:51 PM Specimen ID: [id number] Specimen Source: Blood, Peripheral Draw Specimen Comment: Specimen Source Site: Blood Specimen Collection Start Date: 12/31/2021 4:04 PM Specimen Received Date: 12/31/2021 4:51 PM Bacteria / Mandi Culture, Blood #1 [[id number]] Collected: 12/31/21 1552 Lab Status: In process Specimen: Blood, Peripheral Draw Updated: 12/31/21 1651 Narrative: Received Bactec aerobic and Bactec anaerobic bottles Specimen Information: Specimen ID: [id number] Specimen Source: Blood, Peripheral Draw Specimen Comment: Specimen Source Site: Blood Specimen Collection Start Date: 12/31/2021 3:52 PM Specimen Received Date: 12/31/2021 4:50 PM Specimen ID: [id number] Specimen Source: Blood, Peripheral Draw Specimen Comment: Specimen Source Site: Blood Specimen Collection Start Date: 12/31/2021 3:53 PM Specimen Received Date: 12/31/2021 4:50 PM Specimen ID: [id number] Specimen Source: Blood, Peripheral Draw Specimen Comment: Specimen Source Site: Blood Specimen Collection Start Date: 12/31/2021 3:53 PM Specimen Received Date: 12/31/2021 4:50 PM Bacteria Cult, Aerobe / Anaerobe+Susc [[id number]] Collected: 12/30/21 1411 Lab Status: Preliminary result Specimen: Shoulder, Left Updated: 12/31/21 1601 Bacteria Cult, Aerobe/Anaerobe+Susc No growth to date. Narrative: Bacterial Culture: Placed in Bactec aerobic and Bactec anaerobic bottles Bacteria Cult, Aerobe / Anaerobe+Susc [[id number]] Collected: 12/30/21 1405 Lab Status: Preliminary result Specimen: Synovial Fluid, Left Shoulder Updated: 12/31/21 1601 Bacteria Cult, Aerobe/Anaerobe+Susc No growth to date. Narrative: Bacterial Culture: Placed in Bactec aerobic and Bactec anaerobic bottles Bacteria Cult, Aerobe / Anaerobe+Susc [[id number]] Collected: 12/30/21 1404 Lab Status: Preliminary result Specimen: Shoulder, Left Updated: 12/31/21 1601 Bacteria Cult, Aerobe/Anaerobe+Susc No growth to date. Narrative: Bacterial Culture: Placed in Bactec aerobic and Bactec anaerobic bottles Bacteria Cult, Aerobe / Anaerobe+Susc [[id number]] Collected: 12/30/21 1403 Lab Status: Preliminary result Specimen: Shoulder, Left Updated: 12/31/21 1601 Bacteria Cult, Aerobe/Anaerobe+Susc No growth to date. Narrative: Bacterial Culture: Placed in Bactec aerobic and Bactec anaerobic bottles Bacteria Cult, Aerobe / Anaerobe+Susc [[id number]] Collected: 12/30/21 1403 Lab Status: Preliminary result Specimen: Shoulder, Left Updated: 12/31/21 1601 Bacteria Cult, Aerobe/Anaerobe+Susc No growth to date. Narrative: Bacterial Culture: Placed in Bactec aerobic and Bactec anaerobic bottles SARS Coronavirus 2, Molecular Detection, PCR, Varies Asymptomatic [[id number]] Collected: 12/29/21 1111 Lab Status: Final result [...] ----ADDITIONAL INFORMATION---- This RT-PCR test using the [employer] SARS-CoV-2 Assay ( adSage.) performed on the [employer] Two Module System has received Emergency Use Authorization (EUA) by the U.S. Food and Drug Administration, and is modified from the broaching machine set up operator's instructions with a bridging study. Performance characteristics were verified by [facility] in a manner consistent with CLIA requirements. Visit the CDC website: https://www.cdc.gov/coronavirus/ for the most recent guidelines on Coronavirus testing. Fact Sheet for Healthcare Providers: https://www.fda.gov/media/076443/download Fact Sheet for Patients: https://www.fda.gov/media/208135/download ASSESSMENT / PLAN 56-year-old female with a [...] is consistent with aspiration results from original [facility] evaluation which is likely leasing representative of the culprit organism causing her [...] of Infectious Diseases OPAT monitoring program at [phone] after dismissal. Primary service to follow labs while patient is hospitalized. [place] pharmacist to adjust dosing after dismissal 4. [...] Please page Ortho C-ID service pager at [phone] with any questions. ?? Jose Guadalupe Nixon [...] - Date/Time Bacteria Cult, Aerobe / Anaerobe+Susc [[id number]] Collected: 12/30/21 1411 Lab Status: In process Specimen: Shoulder, Left Updated: 12/30/21 1540 Narrative: Bacterial Culture: Placed in Bactec aerobic and Bactec anaerobic bottles Bacteria Cult, Aerobe / Anaerobe+Susc [[id number]] Collected: 12/30/21 1405 Lab Status: In process Specimen: Synovial Fluid, Left Shoulder Updated: 12/30/21 1519 Narrative: Bacterial Culture: Placed in Bactec aerobic and Bactec anaerobic bottles Bacteria Cult, Aerobe / Anaerobe+Susc [[id number]] Collected: 12/30/21 1404 Lab Status: In process Specimen: Shoulder, Left Updated: 12/30/21 1536 Narrative: Bacterial Culture: Placed in Bactec aerobic and Bactec anaerobic bottles Bacteria Cult, Aerobe / Anaerobe+Susc [[id number]] Collected: 12/30/21 1403 Lab Status: In process Specimen: Shoulder, Left Updated: 12/30/21 1533 Narrative: Bacterial Culture: Placed in Bactec aerobic and Bactec anaerobic bottles Bacteria Cult, Aerobe / Anaerobe+Susc [[id number]] Collected: 12/30/21 1403 Lab Status: In process Specimen: Shoulder, Left Updated: 12/30/21 1538 Narrative: Bacterial Culture: Placed in Bactec aerobic and Bactec anaerobic bottles SARS Coronavirus 2, Molecular Detection, PCR, Varies Asymptomatic [[id number]] Collected: 12/29/21 1111 Lab Status: Final result [...] ----ADDITIONAL INFORMATION---- This RT-PCR test using the [employer] SARS-CoV-2 Assay ( adSage.) performed on the [employer] Two Module System has received Emergency Use Authorization (EUA) by the U.S. Food and Drug Administration, and is modified from the broaching machine set up operator's instructions with a bridging study. Performance characteristics were verified by [facility] in a manner consistent with CLIA requirements. Visit the CDC website: https://www.cdc.gov/coronavirus/ for the most recent guidelines on Coronavirus testing. Fact Sheet for Healthcare Providers: https://www.fda.gov/media/398544/download Fact Sheet for Patients: https://www.fda.gov/media/938347/download ASSESSMENT / PLAN IMPRESSION/REPORT/PLAN #1 Status post [...] House at [facility] [phone] Trey Phan R.N. - 12/31/2021 7:34 AM [...] - Date/Time Bacteria Cult, Aerobe / Anaerobe+Susc [[id number]] Collected: 12/30/21 1411 Lab Status: In process Specimen: Shoulder, Left Updated: 12/30/21 1540 Narrative: Bacterial Culture: Placed in Bactec aerobic and Bactec anaerobic bottles Bacteria Cult, Aerobe / Anaerobe+Susc [[id number]] Collected: 12/30/21 1405 Lab Status: In process Specimen: Synovial Fluid, Left Shoulder Updated: 12/30/21 1519 Narrative: Bacterial Culture: Placed in Bactec aerobic and Bactec anaerobic bottles Bacteria Cult, Aerobe / Anaerobe+Susc [[id number]] Collected: 12/30/21 1404 Lab Status: In process Specimen: Shoulder, Left Updated: 12/30/21 1536 Narrative: Bacterial Culture: Placed in Bactec aerobic and Bactec anaerobic bottles Bacteria Cult, Aerobe / Anaerobe+Susc [[id number]] Collected: 12/30/21 1403 Lab Status: In process Specimen: Shoulder, Left Updated: 12/30/21 1533 Narrative: Bacterial Culture: Placed in Bactec aerobic and Bactec anaerobic bottles Bacteria Cult, Aerobe / Anaerobe+Susc [[id number]] Collected: 12/30/21 1403 Lab Status: In process Specimen: Shoulder, Left Updated: 12/30/21 1538 Narrative: Bacterial Culture: Placed in Bactec aerobic and Bactec anaerobic bottles SARS Coronavirus 2, Molecular Detection, PCR, Varies Asymptomatic [[id number]] Collected: 12/29/21 1111 Lab Status: Final result [...] ----ADDITIONAL INFORMATION---- This RT-PCR test using the [employer] SARS-CoV-2 Assay ( adSage.) performed on the [employer] Two Module System has received Emergency Use Authorization (EUA) by the U.S. Food and Drug Administration, and is modified from the broaching machine set up operator's instructions with a bridging study. Performance characteristics were verified by [facility] in a manner consistent with CLIA requirements. Visit the CDC website: https://www.cdc.gov/coronavirus/ for the most recent guidelines on Coronavirus testing. Fact Sheet for Healthcare Providers: https://www.fda.gov/media/640702/download Fact Sheet for Patients: https://www.fda.gov/media/288472/download ASSESSMENT / PLAN IMPRESSION/REPORT/PLAN #1 Status post [...] Jey Matos DO Shoulder & Elbow Fellow [facility] Orthopaedic Surgery For any questions or concerns from 6 am until 6 pm, please page Jam service For urgent matters from 6 pm until 6 am, please page [facility] [place] at [facility] [phone] CTOR OF RESERVATIONS Trey Rdz R.N. - 12/30/2021 4:39 PM [...] Care Plan:continue current management per plan/IPS protocol CTOR OF RESERVATIONS Feli Viveros PharmBrittonDBritton, R.Ph. - 12/30/2021 11:33 AM CST [...] home. She is registered with the state [facility] for medical cannabis and she gets her meds from a [place] dispensary. She was told to leave her medical cannabis at home, so has none with her currently. Per patient report, morphine was removed from her allergy list. She noted that fentanyl caused hallucinations, but only with large doses. Prior to Admission Medications Med List Status: Pharmacy Complete Set By: Feli Viveros, PharmBrittonD., R.Ph. at 12/30/2021 11:33 AM Taking? Last [...] Take 150 mg by mouth every morning. pdwvbtrjpk-afunpaekptkcb-fadh (ESGIC) 50-325-40 mg per tablet Past Week [...] by mouth 2 (two) times a day. CTOR OF RESERVATIONS documented in this encounter Procedure Notes Soraida [...] to release the adhesive from the skin. http://[email or web address]/products/[email or web address] CTOR OF RESERVATIONS documented in this encounter Consult Notes Ruth Gonzalez, P.T., D.P.T. - 12/31/2021 4:00 PM CST [...] RESECTION SHOULDER.; Surgeon: Cyrus Polk M.D.; Location: [facility] OR ??? BACK SURGERY 1998 lumbar fusion [...] Right Lives With: Alone Receives Help From: packaging line attendant, Family, Friend(s) ADL Assistance: Required assistance ADL Assistance Comments: Gets help from [employer] for her bath/shower and for her meals IADL/Homemaking Assistance: Required assistance IADL/Homemaking Assistance Comments: Gets help for housecleaning Driving: Independent Occupational Role: On disability Prior Mobility/Functional Transfers Level of [place]: Modified independent Gait Devices/Wheelchair Used: Cane Gait [...] session with call light in reach and [employer] present, all needs metand questions answered. Contact monitoring: PPE used during therapy: Therapist was wearing the following PPE throughout entire session: surgicalmask and eye protection Patient was wearing a mask during therapy session: yes, when out of room Outcome Measures [facility] Inpatient Short Form: -[facility] Basic Mobility (V.2) How much help [...] 3-5 steps with a railing?: A Lot -[facility] Basic Mobility (V.2) Raw Score: 17 -[facility] Basic Mobility (V.2) Standardized Score: 39.67 Interpretation: Clinicians answer the -[facility] Inpatient Short Form based on observed [...] (min): 36 min Ruth Gonzalez P.T., D.P.T. CTOR OF RESERVATIONS Thao You L.I.C.S.W., M.S.W. - 12/31/2021 2:04 PM CSTAssociated Order(s): IP CONSULT TO CARE MANAGEMENT; IP CONSULT TO CARE MANAGEMENT; IP CONSULT TO CARE MANAGEMENT Psychosocial Assessment SUBJECTIVE DEMOGRAPHIC INFORMATION Person(s) present during interview: Patient Primary care clinic and provider: [facility] Primary Language: Slovenian Legal Information: Legal decision maker for self [...] / Household Status: Patient resides alone in [place], [place]. She lives in a two bedroom apartment. Patient has four adultchildren two of whom live in [place]. Patient son Rafal lives next door to patient. Support Systems: Family members, Friends/neighbors. We have not received permission to contact them. Primary caregiver: Self Accompanied by/Relationship: None Support System: Family members, Friends/neighbors Spirituality / Taoism / Culture: , None History: No Education: High school Employment: Disabled Psychosocial Risk Factors impacting the patient: Resides alone, mental health issues Abuse, Neglect, Maltreatment, Trauma: Current: None reported. Past: None reported. ENVIRONMENTAL SUPPORTS Current Living Situation: Private residence Patient's Home Environment: Resides in a two bedroom apartment on the [address] [facility] Care Facility Name (if applicable): NA [...] Behavior: Oriented Communication: Reads, writes and speaks Slovenian It is anticipated that the patient will need assistance with .Dressing,bathing, meal prep, housekeeping, shopping ASSISTIVE DEVICES Patient has the following equipment: Eyeglasses, Dentures upper, Dentures lower, cane, walker Patient anticipates potentially needing the following additional equipment: None Transportation needs: Independent to drive, support from family and friends SERVICES REQUESTED Infusion therapy BUYER AGENT Formal and Informal Resources: Patient receives home health aid services three times per week and mcc visit one time every two weeks through [facility]. FINANCES/INSURANCE Primary insurance: MEDICARE A AND B Secondary insurance: MEDICA ADVANCE DIRECTIVES Advance Directive: Patient does not have advance directive, does not want information DISCHARGE PLANNING Patient is planning on returning home upon her discharge. She currently receives home health aid services and mcc through [facility]. Patient also has support from a [...] group consisting of family, friends and[facility] health services through [facility]. INTERVENTIONS ?? Psychosocial assessment ?? Rapport building ?? Education on coping with chronic pain. PLAN ?? Social work will continue to follow for discharge planning and support. ?? Social work did speak with Pat at [facility] to confirm home health services. ?? Social work will work on infusion therapy referrals as well as home health/outpatient picc site care and labs. Anticipated barriers to the transition of care/plan: None Joe Ervin, M.S.W. 12/31/2021 CTOR OF RESERVATIONS Jose Guadalupe Nixon M.D. - 12/31/2021 7:31 [...] She presented to [facility] (unclear if on antibiotics) for further evaluation given persistent L shoulder pain 08/2021 prompting aspiration (09/25/21) which revealed elevated TNC (47052) with 81% PMNs with cultures positive for1 [...] patient was subsequently admitted to [facility] for further management. Intraoperative cultures and [...] - Date/Time Bacteria Cult, Aerobe / Anaerobe+Susc [[id number]] Collected: 12/30/21 1411 Lab Status: In process Specimen: Shoulder, Left Updated: 12/30/21 1540 Narrative: Bacterial Culture: Placed in Bactec aerobic and Bactec anaerobic bottles Bacteria Cult, Aerobe / Anaerobe+Susc [[id number]] Collected: 12/30/21 1405 Lab Status: In process Specimen: Synovial Fluid, Left Shoulder Updated: 12/30/21 1519 Narrative: Bacterial Culture: Placed in Bactec aerobic and Bactec anaerobic bottles Bacteria Cult, Aerobe / Anaerobe+Susc [[id number]] Collected: 12/30/21 1404 Lab Status: In process Specimen: Shoulder, Left Updated: 12/30/21 1536 Narrative: Bacterial Culture: Placed in Bactec aerobic and Bactec anaerobic bottles Bacteria Cult, Aerobe / Anaerobe+Susc [[id number]] Collected: 12/30/21 1403 Lab Status: In process Specimen: Shoulder, Left Updated: 12/30/21 1533 Narrative: Bacterial Culture: Placed in Bactec aerobic and Bactec anaerobic bottles Bacteria Cult, Aerobe / Anaerobe+Susc [[id number]] Collected: 12/30/21 1403 Lab Status: In process Specimen: Shoulder, Left Updated: 12/30/21 1538 Narrative: Bacterial Culture: Placed in Bactec aerobic and Bactec anaerobic bottles SARS Coronavirus 2, Molecular Detection, PCR, Varies Asymptomatic [[id number]] Collected: 12/29/21 1111 Lab Status: Final result [...] ----ADDITIONAL INFORMATION---- This RT-PCR test using the [employer] SARS-CoV-2 Assay ( adSage.) performed on the [employer] Two Module System has received Emergency Use Authorization (EUA) by the U.S. Food and Drug Administration, and is modified from the broaching machine set up operator's instructions with a bridging study. Performance characteristics were verified by [facility] in a manner consistent with CLIA requirements. Visit the CDC website: https://www.cdc.gov/coronavirus/ for the most recent guidelines on Coronavirus testing. Fact Sheet for Healthcare Providers: https://www.fda.gov/media/231459/download Fact Sheet for Patients: https://www.fda.gov/media/734166/download ASSESSMENT / PLAN 56-year-old female with a [...] is consistent with aspiration results from original [facility] evaluation which is likely leasing representative of the culprit organism causing her [facility] [place] [phone] with questions. Thank you for the consultation. Jose Guadalupe Nixon M.D. CTOR OF RESERVATIONS Associated attestation - Gucci Salvador M.D. - 12/31/2021 6:07 PM DIRECTOR OF RESERVATIONS DEMOGRAPHIC INFORMATION Clinic Number:[id number] Patient Name: Angie [...] Oxycodone. Oxycodone filled here at [facility] pharmacy. Patient going home with an interscalene block OnQ pump. Transportation provided by her son. CTOR OF RESERVATIONS Fanny Sifuentes R.N. - 12/31/2021 11:00 PM [...] Nasal mucous membranes remain intact Outcome: Progressing CTOR OF RESERVATIONS Ezequiel Hernandez R.N. - 12/30/2021 10:27 PM [...] staff assistance to bathroom. Navin Hernandez R.N. CTOR OF RESERVATIONS documented in this encounter OR Notes Op Note - Cyrus Polk M.D. - 12/30/2021 2:50 PM CST STAFF: Cyrus Polk M.D. RESIDENT: Dario Carrera M.D. PRE-OPERATIVE DIAGNOSIS Left infected reverse arthroplasty. POST-OPERATIVE DIAGNOSIS Left infected reverse arthroplasty. A application assistant was necessary for one or more [...] Cyrus Polk M.D. CT CT Job ID: [id number] CTOR OF RESERVATIONS documented in this encounter Miscellaneous Notes Hospital [...] and pain is controlled on oral medications. CTOR OF RESERVATIONS documented in this encounter Plan of Treatment Scheduled Referrals Name Type Priority Associated Diagnoses Order S [facility] Outpatient Referral Routine Direct Infection Of Ordered: Health Referral Left Shoulder In 01/01/20 22 Infectious And Parasitic Diseases Classified Elsewhere (HCC) documented as of this encounter Procedures Procedure Name Priority Date/Time Associated Comments Diagnosis PLACE PERIPHERALLY Routine 01/01/2022 12:11 Resul ts for this INSERTED CENTRAL PM DIRECTOR OF RESERVATIONS procedure a re in CATHETER (PICC) the results section. REMOTE OXIMETRY Routine 12/31/2021 5:23 MONITORING CONT. PM DIRECTOR OF RESERVATIONS REMOTE OXIMETRY Routine 12/31/2021 5:23 MONITORING CONT. PM DIRECTOR OF RESERVATIONS BACTERIA / MANDI Routine 12/31/2021 4:04 Result s for this CULTURE, BLOOD PM DIRECTOR OF RESERVATIONS procedure are in the results section. BACTERIA / MANDI Routine 12/31/2021 3:52 Result s for this CULTURE, BLOOD PM DIRECTOR OF RESERVATIONS procedure are in the results section. ADULT OXYGEN THERAPY Routine 12/31/2021 8:01 AM DIRECTOR OF RESERVATIONS CBC WITH Routine 12/31/2021 4:25 Results for this DIFFERENTIAL, B AM DIRECTOR OF RESERVATIONS procedure ar e in the results section. BASIC METABOLIC Routine 12/31/2021 4:25 Results f or this PANEL, S/P AM DIRECTOR OF RESERVATIONS procedure are i n the results section. ADULT OXYGEN THERAPY Routine 12/30/2021 8:01 PM DIRECTOR OF RESERVATIONS ADULT OXYGEN THERAPY Routine 12/30/2021 5:12 PM DIRECTOR OF RESERVATIONS ADULT OXYGEN THERAPY Routine 12/30/2021 5:12 PM DIRECTOR OF RESERVATIONS ADULT OXYGEN THERAPY Routine 12/30/2021 3:46 PM DIRECTOR OF RESERVATIONS ADULT OXYGEN THERAPY Routine 12/30/2021 3:46 PM DIRECTOR OF RESERVATIONS DX SHOULDER LEFT 1 RAD - Timed (for 12/30/2021 3:41 Re sults for this VIEW specific PM DIRECTOR OF RESERVATIONS procedure are i n dates/times) the results section. SURGICAL PATHOLOGY, Routine 12/30/2021 2:15 Shoulder Joint Res ults for this [facility] LAB PM DIRECTOR OF RESERVATIONS Disorder Left procedure are in the results section. BACTERIA CULT, Routine 12/30/2021 2:11 Results fo r this AEROBE/ANAEROBE+SUSC PM DIRECTOR OF RESERVATIONS procedu re are in the results section. BACTERIA CULT, Routine 12/30/2021 2:05 Results fo r this AEROBE/ANAEROBE+SUSC PM DIRECTOR OF RESERVATIONS procedu re are in the results section. BACTERIA CULT, Routine 12/30/2021 2:04 Results fo r this AEROBE/ANAEROBE+SUSC PM DIRECTOR OF RESERVATIONS procedu re are in the results section. BACTERIA CULT, Routine 12/30/2021 2:03 Results fo r this AEROBE/ANAEROBE+SUSC PM DIRECTOR OF RESERVATIONS procedu re are in the results section. BACTERIA CULT, Routine 12/30/2021 2:03 Results fo r this AEROBE/ANAEROBE+SUSC PM DIRECTOR OF RESERVATIONS procedu re are in the results section. ARTHROPLASTY 12/30/2021 12:34 Shoulder Joint RESECTION SHOULDER PM DIRECTOR OF RESERVATIONS Disorder Left documented in this encounter Results Place peripherally inserted central catheter (PICC) (01/01/2022 12:11 PM DIRECTOR OF RESERVATIONS) Narrative MMODAL - 01/01/2022 12:11 PM DIRECTOR OF RESERVATIONS Soraida Dick R.N. ? 01/01/2022 12:13 PM [...] to release the adhesive from the skin. [email or web address] Dario Carrera M.D. PROCEDURE/MINOR SURGICAL ORD ERABLES Performing Organization Address City/[facility]/ZIP Code Phon e Number MMODAL MMODAL NA Bacteria / Mandi Culture, Blood #2 (12/31/2021 4:04 PM DIRECTOR OF RESERVATIONS) [facility] Method Time Signature Bacteria/Valerie No growth 01/05/2022 DTL da Culture, after 5 5:02 PM DIRECTOR OF RESERVATIONS Blood days of incubation. Specimen (Source) Anatomical Collection Method Collection Time Re ceived Time Location / / Volume Laterality Blood (Blood, 12/31/2021 4:04 12/31/2021 4:51 Peripheral Draw) PM DIRECTOR OF RESERVATIONS PM DIRECTOR OF RESERVATIONS Comment: Specimen Source Site: Blood Narrative [facility] [place] - 01/05/2022 5:02 PM DIRECTOR OF RESERVATIONS Received Bactec aerobic and Bactec anaer obic bottles Dario Carrera M.D. LAB MICROBIOLOGY - GENERAL O RDERASARAH Performing Organization Address [facility] Phon e Number [facility] - [address] [place], [place] [address] [place] [address] Bacteria / Mandi Culture, Blood #1 (12/31/2021 3:52 PM DIRECTOR OF RESERVATIONS) [facility] Method Time Signature Bacteria/Valerie No growth 01/05/2022 DT da Culture, after 5 5:02 PM DIRECTOR OF RESERVATIONS Blood days of incubation. Specimen (Source) Anatomical Collection Method Collection Time Re ceived Time Location / / Volume Laterality Blood (Blood, 12/31/2021 3:52 12/31/2021 4:50 Peripheral Draw) PM DIRECTOR OF RESERVATIONS PM DIRECTOR OF RESERVATIONS Comment: Specimen Source Site: Blood Narrative [facility] [place] - 01/05/2022 5:02 PM DIRECTOR OF RESERVATIONS Received Bactec aerobic and Bactec anaer obic bottles Dario Carrera M.D. LAB MICROBIOLOGY - GENERAL O RDERABLES Performing Organization Address City/[facility]/ZIP [facility] Phon e Number [facility] - [address] [place], [place] [address] [place] [address] [facility] [address] [facility] (ABNORMAL) CBC with Differential, Blood (12/31/2021 4:25 AM DIRECTOR OF RESERVATIONS) [facility] gist Method Time Signature Hemoglobin 8.9 (L) 11.6 - 12/31/2021 DTL 15.0 g/dL 5:15 AM DIRECTOR OF RESERVATIONS Hematocrit 27.3 (L) 35.5 - 12/31/2021 DTL 44.9 % 5:15 AM DIRECTOR OF RESERVATIONS Erythrocytes 3.26 (L) 3.92 - 12/31/2021 DTL 5.13 5:15 AM DIRECTOR OF RESERVATIONS x10(12)/L MCV 83.7 78.2 - 12/31/2021 DTL 97.9 fL 5:15 AM DIRECTOR OF RESERVATIONS RBC Distrib Width 19.6 (H) 12.2 - 12/31/2021 DTL 16.1 % 5:15 AM DIRECTOR OF RESERVATIONS Platelet Count 274 157 - 371 12/31/2021 DTL x10(9)/L 5:15 AM DIRECTOR OF RESERVATIONS Leukocytes 6.6 3.4 - 9.6 12/31/2021 DTL x10(9)/L 5:15 AM DIRECTOR OF RESERVATIONS Neutrophils 4.91 1.56 - 12/31/2021 DTL 6.45 5:15 AM DIRECTOR OF RESERVATIONS x10(9)/L Lymphocytes 1.10 0.95 - 12/31/2021 DTL 3.07 5:15 AM DIRECTOR OF RESERVATIONS x10(9)/L Monocytes 0.61 0.26 - 12/31/2021 DTL 0.81 5:15 AM DIRECTOR OF RESERVATIONS x10(9)/L Eosinophils <0.03 0.03 - 12/31/2021 DTL 0.48 5:15 AM DIRECTOR OF RESERVATIONS x10(9)/L Basophils <0.03 0.01 - 12/31/2021 DTL 0.08 5:15 AM DIRECTOR OF RESERVATIONS x10(9)/L Specimen Anatomical Collection Method Collection Time Receive d Time (Source) Location / / Volume Laterality Blood (Blood, 12/31/2021 4:25 AM 12/31/19 5:04 Venous) DIRECTOR OF RESERVATIONS AM DIRECTOR OF RESERVATIONS Dario Carrera M.D. LAB BLOOD ADD-ON Performing Organization Address City/State/ZIP Code Phon e Number [facility] - [address] [place] [address] [facility] 200 [facility] (ABNORMAL) Basic Metabolic Panel (12/31/2021 4:25 AM DIRECTOR OF RESERVATIONS) P athologist Signature Potassium, S 4.4 3.6 - 5.2 12/31/2021 DTL mmol/L 5:35 AM DIRECTOR OF RESERVATIONS Sodium, S 134 (L) 135 - 145 12/31/2021 DTL mmol/L 5:35 AM DIRECTOR OF RESERVATIONS Chloride, S 103 98 - 107 12/31/2021 DTL mmol/L 5:35 AM DIRECTOR OF RESERVATIONS Bicarbonate, S 22 22 - 29 12/31/2021 DTL mmol/L 5:35 AM DIRECTOR OF RESERVATIONS Anion Gap 9 7 - 15 12/31/2021 DTL 5:35 AM DIRECTOR OF RESERVATIONS BUN (Blood Urea 21 6 - 21 12/31/2021 DTL Nitrogen), S mg/dL 5:35 AM DIRECTOR OF RESERVATIONS Creatinine 0.74 0.59 - 12/31/2021 DTL 1.04 mg/dL 5:35 AM DIRECTOR OF RESERVATIONS eGFR-Non 90 >=60 12/31/2021 DTL Black/ mL/min/BSA 5:35 AM DIRECTOR OF RESERVATIONS [place]an Comment: ----ADDITIONAL INFORMATION---- Estimated GFR calculated using the 2009 CKD_EPI creatinine equation. eGFR-Black/ >90 >=60 mL/min/BSA 2021 5:35 AM DIRECTOR OF RESERVATIONS DTL Comment: ----ADDITIONAL INFORMATION---- Estimated GFR calculated using the 2009 CKD_EPI creatinine equation. Calcium, Total, S 8.7 8.6 - 10.0 mg/dL 12/31/2021 5:35 AM DIRECTOR OF RESERVATIONS DTL Glucose, S 138 70 - 140 mg/dL 12/31/2021 5:35 AM DIRECTOR OF RESERVATIONS D TL Specimen Anatomical Collection Method Collection Time Receive d Time (Source) Location / / Volume Laterality Blood (Blood, 12/31/2021 4:25 AM 12/31/19 5:18 Venous) DIRECTOR OF RESERVATIONS AM DIRECTOR OF RESERVATIONS Dario Carrera M.D. LAB BLOOD ADD-ON Performing Organization Address City/State/ZIP Code Phon e Number [facility] - [address] [place] [address] [address] [facility] [place] [address] [facility] [address] DX Shoulder Left 1 View (12/30/2021 3:41 PM DIRECTOR OF RESERVATIONS) Anatomical Region Laterality Modality Upper Extremity, Shoulder, Musculoskeletal RST LOS, Left Computed Radiography Musculoskeletal ARZ LOS, Muskuloskeletal FLA LOS Specimen (Source) Anatomical Collection Method Collection Time Re ceived Time Location / / Volume Laterality 12/30/2021 3:54 PM DIRECTOR OF RESERVATIONS Impressions 12/30/2021 3:59 PM DIRECTOR OF RESERVATIONS Postoperative changes of a left shoulder arthroplasty resection and placement of an antibiotic spacer. Negat lalo for postoperative purposes. Narrative 12/30/2021 3:59 PM DIRECTOR OF RESERVATIONS EXAM: ??DX SHOULDER LEFT 1 VIEW Procedure Note Timothy Resendiz M.D. - 12/30/2021Forma tting of this note might be different from the original. EXAM: DX SHOULDER LEFT 1 VIEW IMPRESSION: Postoperative changes of a left shoulder arthroplasty resection and placement of an antibiotic spacer. Negat lalo for postoperative purposes. Dario Carrera M.D. IMG DIAGNOSTIC IMAGING [facility] Surgical Pathology, Frozen Lab (12/30/2021 2:15 PM DIRECTOR OF RESERVATIONS) Component Value Ref Test Analysis Performed At [facility] Range Method Time Signature 01/01/2022 METH 8:22 AM DIRECTOR OF RESERVATIONS Participated in Kelly Howard 01/01/2022 METH the D.O.-Pathology 8:22 AM DIRECTOR OF RESERVATIONS Interpretation Resident Report Solomon Marcum M.D. 01/01/2022 METH electronically 8:22 AM DIRECTOR OF RESERVATIONS signed by I verify that I have examined all relevant slides/materials for the specimen(s) and rendered or confirmed the diagnosis. Frozen A. ??Synovium, left shoulder, excision: ??Synovial tissue 01/01/2022 METH Intraoperative with 8:22 AM DIRECTOR OF RESERVATIONS Report acute inflammation (>5 neutrophils/high power field). Signed by Solomon Marcum M.D. 12/31/2021 8:17 AM Gross Description A. ??Received fresh labeled left shoulder is a 1.4 x 0.9 x 01/01/2022 METH 0.4 cm aggregate of red and campbell fibrous tissue, which is 8:22 AM DIRECTOR OF RESERVATIONS soft. ??All submitted for frozen and permanent sections. Grossed by Nikki Gallardo. Block Summary A Left shoulder 01/01/2022 METH A1 Left shoulder-frozen 8:22 AM DIRECTOR OF RESERVATIONS Interpretation FINAL DIAGNOSIS 01/01/2022 METH 8:22 AM DIRECTOR OF RESERVATIONS A. ??Synovium, left shoulder, excision: ??Synovial tissue with acute inflammation (>5 neutrophils/high power field). Specimen (Source) Anatomical Collection Method Collection Time Re ceived Time Location / / Volume Laterality Tissue (Shoulder, 12/30/2021 2:15 PM Left) DIRECTOR OF RESERVATIONS Narrative This result has an attachment that is no t available. Cyrus Polk M.D. LAB SURG PATH ORDERABLES Performing Organization Address [facility] Phon e Number [facility] - [address] METH [place], [place] [id number] [place] [address] Bacteria Cult, Aerobe / Anaerobe+Susc (12/30/2021 2:11 PM DIRECTOR OF RESERVATIONS) [email or web address] Method Time Signature Bacteria Cult, No growth 01/13/2022 DTL Aerobe/Anaerob after 14 4:02 PM DIRECTOR OF RESERVATIONS e+Susc days of incubation. Specimen Anatomical Collection Method Collection Time Receive d Time (Source) Location / / Volume Laterality Shoulder, Left 12/30/2021 2:11 PM 022 3:38 DIRECTOR OF RESERVATIONS PM DIRECTOR OF RESERVATIONS Comment: Specimen Source Site: Tissue #4 Narrative [facility] - [facility] - 01/13/2022 4:02 PM DIRECTOR OF RESERVATIONS Bacterial Culture: Placed in Bactec aero bic and Bactec anaerobic bottles Cyrus Polk M.D. LAB MICROBIOLOGY - GENERAL O RDERABLES Performing Organization Address City/[facility] Phon e Number [facility] - [address] [place], [place] [address] [facility] DTL [place], [place] [id number] [place] [address] [facility] (ABNORMAL) Bacteria Cult, Aerobe / Anaerobe+Susc (12/30/2021 2:05 PM DIRECTOR OF RESERVATIONS) Component Value Ref Test Analysis [facility]formed At [email or web address] Range Method Time Signature Bacteria STAPHYLOCOCCUS EPIDERMIDIS 01/11/2022 DT L Cult, Growth after 4 days 7:55 AM DIRECTOR OF RESERVATIONS Aerobe/Anaero (A) be+Susc Comment: Semi-Urgent Result. Semi-Urgent This is a semi-urgent result [facility] - (ORTIZ) [facility] S Specimen Anatomical Collection Method Collection Time Receive d Time (Source) Location / / Volume Laterality Synovial Fluid, 12/30/2021 2:05 PM 2021 3:17 Left Shoulder DIRECTOR OF RESERVATIONS PM DIRECTOR OF RESERVATIONS Comment: Specimen Source Site: Fluid Narrative [facility] - [facility] - 01/11/2022 7:55 AM DIRECTOR OF RESERVATIONS Bacterial Culture: Placed in Bactec aero bic [...] City/State/ZIP Code Phon e Number [facility] - [address] [place] [address] [address] [place] [address] [facility] [address] [facility] Bacteria Cult, Aerobe / Anaerobe+Susc (12/30/2021 2:04 PM DIRECTOR OF RESERVATIONS) [facility] Method Time Signature Bacteria Cult, No growth 01/13/2022 DTL Aerobe/Anaerob after 14 4:02 PM DIRECTOR OF RESERVATIONS e+Susc days of incubation. Specimen Anatomical Collection Method Collection Time Receive d Time (Source) Location / / Volume Laterality Shoulder, Left 12/30/2021 2:04 PM 022 3:34 DIRECTOR OF RESERVATIONS PM DIRECTOR OF RESERVATIONS Comment: Specimen Source Site: Tissue #3 Narrative [facility] [place] - 01/13/2022 4:02 PM DIRECTOR OF RESERVATIONS Bacterial Culture: Placed in Bactec aero bic and Bactec anaerobic bottles Cyrus Polk M.D. LAB MICROBIOLOGY - GENERAL O MARY Performing Organization Address City/[facility] Phon e Number [facility] - [address] [place], [place] [address] [facility] [place], [place] [phone] [place] [address] Bacteria Cult, Aerobe / Anaerobe+Susc (12/30/2021 2:03 PM DIRECTOR OF RESERVATIONS) [facility] Method Time Signature Bacteria Cult, No growth 01/13/2022 DTL Aerobe/Anaerob after 14 4:02 PM DIRECTOR OF RESERVATIONS e+Susc days of incubation. Specimen Anatomical Collection Method Collection Time Receive d Time (Source) Location / / Volume Laterality Shoulder, Left 12/30/2021 2:03 PM 022 3:37 DIRECTOR OF RESERVATIONS PM DIRECTOR OF RESERVATIONS Comment: Specimen Source Site: Tissue #2 [facility] - 01/13/2022 4:02 PM DIRECTOR OF RESERVATIONS Bacterial Culture: Placed in Bactec aero bic and Bactec anaerobic bottles Cyrus Polk M.D. LAB MICROBIOLOGY - GENERAL O MARY Performing Organization Address City/[facility] Code Phon e Number [facility] - [address] [place], [place] [address] [facility] [place]TM[place], [place] [id number] [place] [address] Bacteria Cult, Aerobe / Anaerobe+Susc (12/30/2021 2:03 PM DIRECTOR OF RESERVATIONS) [facility] Method Time Signature Bacteria Cult, No growth 01/13/2022 DTL Aerobe/Anaerob after 14 4:02 PM DIRECTOR OF RESERVATIONS e+Susc days of incubation. Specimen Anatomical Collection Method Collection Time Receive d Time (Source) Location / / Volume Laterality Shoulder, Left 12/30/2021 2:03 PM 022 3:31 DIRECTOR OF RESERVATIONS PM DIRECTOR OF RESERVATIONS Comment: Specimen Source Site: Tissue #1 Narrative [facility] - [facility] - 01/13/2022 4:02 PM DIRECTOR OF RESERVATIONS Bacterial Culture: Placed in Bactec aero bic and Bactec anaerobic bottles Cyrus Polk M.D. LAB MICROBIOLOGY - GENERAL O RDERABLES Performing Organization Address City/State/ZIP Code Phon e Number [facility] - [address] [place], [place] [address] [facility] [place] [address] [facility] [address] [...] tablet 1,000 mg Given 12/30/2021 12:02 PM DIRECTOR OF RESERVATIONS 1,00 0 mg (TYLENOL) 1,000 mg, oral, Once, On Tue12/30/21 at 1215, For 1 dose, Pre-Op acetaminophen tablet 1,000 mg (TYLENOL) Given 01/01/2022 11:36 AM DIRECTOR OF RESERVATIONS 1,000 mg 1,000 mg, oral, Every 6 hours, First dose on Tue12/30/21 at 1800 Given 01/01/2022 6:28 AM DIRECTOR OF RESERVATIONS 1,000 mg Given 12/31/2021 11:51 PM DIRECTOR OF RESERVATIONS 1,000 mg albuterol nebulizer solution 2.5 mg Given 12/31/2021 4:44 PM DIRECTOR OF RESERVATIONS 2.5 mg 2.5 mg, nebulization, Every 6 hours PRN, wheezing, Starting on Tue12/30/21 at 1711, Albuterol nebs were interchanged for albuterol/levalbuterol MDI (same frequency) atorvastatin tablet 80 mg (LIPITOR) Given 12/31/2021 8:57 PM DIRECTOR OF RESERVATIONS 80 mg 80 mg, oral, Daily at bedtime, First dose on Tue12/30/21 at 2100 Given 12/30/2021 9:55 PM DIRECTOR OF RESERVATIONS 80 mg benzonatate capsule 100 mg (TESSALON PER LES) Given 01/01/2022 3:10 AM DIRECTOR OF RESERVATIONS 100 mg 100 mg, oral, 3 times daily PRN, cough, Starting on Tue12/31/21 at 1702, Swallow whole. Do NOT crush, chew or open capsule. Given 12/31/2021 5:39 PM DIRECTOR OF RESERVATIONS 100 mg bupivacaine PF 0.2 % 550 mL in NaCl New Bag 01/01/2022 3:15 PM DIRECTOR OF RESERVATIONS 6 mL/hr 6 mL/hr 0.9% On-Q pain pump (CB004) 6 mL/hr, nerve catheter, Continuous, Starting on Tue01/01/22 at 1500, PACU & Post-Op, Location: Nerve Catheter Location, Nerve Catheter Location: Interscalene, Device: On-Q Pump bupivacaine PF 0.2 % in Rate/Dose Verify 01/01/2022 1:00 AM DIRECTOR OF RESERVATIONS 6 mL/ hr 6 mL/hr NaCl 0.9% 341 mL infusion (MARCAINE) 6 mL/hr, nerve catheter, Continuous, Starting on Tue12/30/21 at 1600, PACU & Post-Op, Nerve Catheter Location: Interscalene, Device: Hospital Infusion Pump Rate/Dose Verify 12/31/2021 12:11 AM DIRECTOR OF RESERVATIONS 6 mL/hr 6 mL/hr New Bag 12/30/2021 3:49 PM DIRECTOR OF RESERVATIONS 6 mL/hr 6 mL/hr buPROPion XL 24 hr tablet 150 mg (WELLBUTRIN Given 02/2022 8:35 AM DIRECTOR OF RESERVATIONS 150 mg XL) 150 mg, oral, Every morning, First dose on Tue12/31/21 at 0900, Swallow whole. Do NOT crush, chew, or split tablet. Given 12/31/2021 8:16 AM DIRECTOR OF RESERVATIONS 150 mg calcium carbonate chewable tablet Given 12/31/2021 11: 46 PM DIRECTOR OF RESERVATIONS 400 mg of calcium 400 mg of calcium (TUMS) 400 mg of calcium, oral, Every 2 hour PRN, indigestion, Starting on Tue12/30/21 at 1711, Doses listed are in mg of elemental calcium. Take with food. 500 mg calcium carbonate contains 200 mg of elemental calcium. Given 12/31/2021 9:15 PM DIRECTOR OF RESERVATIONS 400 mg of calcium carboxymethylcellulose 0.5 % ophthalmic Given 01/01/2022 1:15 AM DIRECTOR OF RESERVATIONS 2 drops solution 2 drop (REFRESH PLUS) 2 drop, both eyes, 4 times daily PRN, dry eyes, Starting on Tue12/30/21 at 1711 Given 12/31/2021 12:31 PM DIRECTOR OF RESERVATIONS 2 drops Given 12/31/2021 12:23 AM DIRECTOR OF RESERVATIONS 2 drops ceFAZolin in dextrose (iso-os) IVPB 2 New Bag 01/01/2022 6:27 AM DIRECTOR OF RESERVATIONS 2 g 200 mL/hr g (ANCEF) 2 g, intravenous, at 200 mL/hr, Administer over 30 Minutes, Every 8 hours, First dose on Tue12/30/21 at 2200, Start within 8 hours of last IV dose., Drug Monitoring Program: Pharmacist to adjust medication dosing based on indication and drug clearance factors., Indications: Bone and/or joint infection New Bag 12/31/2021 10:32 PM DIRECTOR OF RESERVATIONS 2 g 200 mL/hr New Bag 12/31/2021 2:21 PM DIRECTOR OF RESERVATIONS 2 g 200 mL/hr cefTRIAXone in dextrose (iso-osm) IVPB New Bag 01/01/2022 2:38 PM DIRECTOR OF RESERVATIONS 2 g 200 mL/hr 2 g (ROCEPHIN) 2 g, intravenous, at 200 mL/hr, Administer over 15 Minutes, Daily before lunch, First dose on Tue01/01/22 at 1345, Drug Monitoring Program: Pharmacist to adjust medication dosing based on indication and drug clearance factors., Indications: Bone and/or joint infection cetirizine tablet 10 mg (ZyrTEC) Given 01/01/2022 8:35 AM DIRECTOR OF RESERVATIONS 10 mg 10 mg, oral, 2 times daily, First dose on Tue12/30/21 at 2100, Drug Monitoring Program: Pharmacist to adjust medication dosing based on indication and drug clearance factors. Given 12/31/2021 8:57 PM DIRECTOR OF RESERVATIONS 10 mg Given 12/31/2021 8:16 AM DIRECTOR OF RESERVATIONS 10 mg cholecalciferol (vitamin D3) tablet 25 m cg Given 01/01/2022 8:35 AM DIRECTOR OF RESERVATIONS 25 mcg 25 mcg, oral, Daily, First dose on Tue12/31/21 at 0900, cholecalciferol (vitamin D3) orderable was interchanged for cholecalciferol (vitamin D3) tablet/capsule Given 12/31/2021 8:16 AM DIRECTOR OF RESERVATIONS 25 mcg D5W infusion 10-250 mL/hr, intravenous, [...] 5 mg (VALIUM) Given 12/31/2021 12:31 PM DIRECTOR OF RESERVATIONS 5 mg 5 mg, oral, 4 times daily PRN, muscle spasms, Starting on Tue12/30/21 at 2243 Given 12/31/2021 1:59 AM DIRECTOR OF RESERVATIONS 5 mg diphenhydrAMINE capsule 25 mg (BENADRYL) 25 mg, oral, Daily PRN, itching, Starting on Tue 2 at 0854 diphenhydrAMINE capsule 75 mg (BENADRYL) Given 01/01/2022 8:49 AM DIRECTOR OF RESERVATIONS 75 mg 75 mg, oral, Bedtime PRN, sleep, Starting on Tue12/30/21 at 1715 FLUoxetine capsule 80 mg (PROzac) Given 01/01/2022 8:34 AM DIRECTOR OF RESERVATIONS 80 mg 80 mg, oral, Daily, First dose on Tue12/31/21 at 0900, FLUoxetine orderable was interchanged for FLUoxetine tablet/capsule Given 12/31/2021 8:16 AM DIRECTOR OF RESERVATIONS 80 mg fluticasone furoate 100 mcg/actuation Given 01/01/2022 8:[address] 2 puffs inhaler 2 puff (ARNUITY ELLIPTA) 2 puff, inhalation, 2 times daily, First dose on Tue12/30/21 at 2100, fluticasone furoate 100 mcg was interchanged for fluticasone MDI 110 mcg Given 12/31/2021 9:04 PM DIRECTOR OF RESERVATIONS 2 puffs Given 12/31/2021 8:17 AM DIRECTOR OF RESERVATIONS 2 puffs granisetron (PF) injection 1 mg (KYTRIL) Given 12/30/2021 3:57 PM DIRECTOR OF RESERVATIONS 1 mg 1 mg, intravenous, Once as needed, nausea, vomiting, Starting on Tue12/30/21 at 1546, For 1 dose, PACU (only), If patient does not respond to ondansetron or haloperidol. (order of antiemetic administration - ondansetron then haloperidol then granisetron) haloperidol lactate injection 1 mg (HALD OL) Given 12/30/2021 4:31 PM DIRECTOR OF RESERVATIONS 1 mg 1 mg, intravenous, Every 6 [...] injection 0.2 mg Given 12/30/2021 4:17 PM DIRECTOR OF RESERVATIONS 0.2 mg (DILAUDID) 0.2 mg, intravenous, Every 5 min PRN, moderate pain or score 4-6 of 10, severe pain or score 7-10 of 10, Starting on Tue12/30/21 at 1546, PACU (only), Up to maximum total dose of 2 mg Given 12/30/2021 4:07 PM DIRECTOR OF RESERVATIONS 0.2 mg Given 12/30/2021 3:55 PM DIRECTOR OF RESERVATIONS 0.2 mg HYDROmorphone (PF) injection 0.4 mg Given 01/01/2022 4:56 AM DIRECTOR OF RESERVATIONS 0.4 mg (DILAUDID) 0.4 mg, intravenous, Every 2 hour PRN, severe pain or score 7-10 of 10, Starting on Tue12/30/21 at 1711, For 5 doses, May administer if pain is greater than 7 after scheduled and PRN regimen exhausted. If pain remains greater than 7, notify primary service. Given 12/31/2021 11:35 AM DIRECTOR OF RESERVATIONS 0.4 mg Given 12/31/2021 4:14 AM DIRECTOR OF RESERVATIONS 0.4 mg ipratropium-albuteroL 0.5-2.5 mg/3 mL nebulizer Given 01/01/2022 3:15 AM DIRECTOR OF RESERVATIONS 3 mL solution 3 mL (DUONEB) 3 mL, nebulization, 4 times daily PRN, shortness of breath, wheezing, Starting on Tue12/30/21 at 1711 ketamine injection 10 mg (KETALAR) Given 12/30/2021 12:38 PM DIRECTOR OF RESERVATIONS 10 mg 10 mg, intravenous, Once, On Tue12/30/21 at 1300, For 1 dose, Pre-Op lactated ringers Rate/Dose Change 01/01/2022 1:00 AM DIRECTOR OF RESERVATIONS 20 mL/hr 20 mL/hr 75 mL/hr, intravenous, Continuous, Starting on Tue12/30/21 at 1715, Until patient has 500cc po intake New Bag 12/31/2021 11:46 PM DIRECTOR OF RESERVATIONS 75 mL/hr 75 mL/hr Rate/Dose Change 12/31/2021 3:55 AM DIRECTOR OF RESERVATIONS 20 mL/hr 20 mL/hr lactated ringers Continued from OR 12/30/2021 4:00 PM DIRECTOR OF RESERVATIONS 75 mL/hr 75 mL/hr 75 mL/hr, intravenous, Continuous, Starting on Tue12/30/21 at 1600, PACU & Post-Op lamoTRIgine tablet 200 mg (LaMICtaL) Given 01/01/2022 8:34 AM DIRECTOR OF RESERVATIONS 200 mg 200 mg, oral, 2 times daily, First dose on Tue12/30/21 at 2100 Given 12/31/2021 8:56 PM DIRECTOR OF RESERVATIONS 200 mg Given 12/31/2021 8:16 AM DIRECTOR OF RESERVATIONS 200 mg midazolam (PF) injection 1 mg (VERSED) Given 12/30/2021 12:38 PM DIRECTOR OF RESERVATIONS 2 mg 1 mg, intravenous, Every 2 [...] 4 mg (ZOFRAN) Given 01/01/2022 1:16 AM DIRECTOR OF RESERVATIONS 4 mg 4 mg, intravenous, Every 6 hours PRN, nausea, vomiting, Starting on Tue12/30/21 at 1711, For 48 hours, Reassess for nausea or vomiting after at least 10 minutes. If nausea or vomiting persists administer next ordered antiemetic medications (order for antiemetic medication administration ondansetron then haloperidol then promethazine). Given 12/31/2021 8:16 AM DIRECTOR OF RESERVATIONS 4 mg oxyCODONE 12 hr tablet 20 mg (OxyCONTIN) Given 12/30/2021 12:35 PM DIRECTOR OF RESERVATIONS 20 mg 20 mg, oral, Once, On Tue12/30/21 at 1300, For 1 dose, Pre-Op, Swallow whole. Do NOT crush, chew, or split tablet. oxyCODONE IR tablet 10 mg (ROXICODONE) Given 12/31/2021 10:43 AM DIRECTOR OF RESERVATIONS 10 mg 10 mg, oral, Every 4 hours PRN, severe pain or score 7-10 of 10, Starting on Tue12/30/21 at 1536 Given 12/31/2021 6:19 AM DIRECTOR OF RESERVATIONS 10 mg Given 12/31/2021 12:22 AM DIRECTOR OF RESERVATIONS 10 mg oxyCODONE IR tablet 10 mg (ROXICODONE) Given 12/31/2021 2:21 PM DIRECTOR OF RESERVATIONS 10 mg 10 mg, oral, Every 4 hours PRN, severe pain or score 7-10 of 10, Starting on Tue12/31/21 at 1415 oxyCODONE IR tablet 10 mg (ROXICODONE) Given 01/01/2022 2:38 PM DIRECTOR OF RESERVATIONS 10 mg 10 mg, oral, Every 3 hours PRN, severe pain or score 7-10 of 10, Starting on Tue12/31/21 at 1745 Given 01/01/2022 11:35 AM DIRECTOR OF RESERVATIONS 10 mg Given 01/01/2022 7:07 AM DIRECTOR OF RESERVATIONS 10 mg oxyCODONE IR tablet 5 mg (ROXICODONE) 5 mg, oral, Every 3 hours PRN, moderate pain or score 4-6 of 10, Starting on Tue12/31/21 at 1745, If patient is >75 consider changing to 2.5-5mg scale pantoprazole DR tablet 40 mg (PROTONIX) Given 01/01/2022 3:46 PM DIRECTOR OF RESERVATIONS 40 mg 40 mg, oral, 2 times daily before breakfast and dinner, First dose on Tue12/31/21 at 0700, pantoprazole 40 mg oral twice daily was interchanged for esomeprazole 20 or 40 mg oral twice daily Swallow whole. Do NOT crush, chew, or split tablet. Given 01/01/2022 6:29 AM DIRECTOR OF RESERVATIONS 40 mg Given 12/31/2021 4:47 PM DIRECTOR OF RESERVATIONS 40 mg pregabalin capsule 600 mg (LYRICA) Given 01/01/2022 8:34 AM DIRECTOR OF RESERVATIONS 600 mg 600 mg, oral, 2 times daily, First dose on Tue12/30/21 at 2100 Given 12/31/2021 8:56 PM DIRECTOR OF RESERVATIONS 600 mg Given 12/31/2021 8:15 AM DIRECTOR OF RESERVATIONS 600 mg QUEtiapine tablet 50 mg (SEROquel) Given 12/31/2021 8:57 PM DIRECTOR OF RESERVATIONS 50 mg 50 mg, oral, Daily at bedtime, First dose on Tue12/30/21 at 2100 Given 12/30/2021 9:55 PM DIRECTOR OF RESERVATIONS 50 mg scopolamine base 1 mg Medication Applied 12/30/2021 12:02 PM 1 patch Behind Left Ear over 3 days 1 patch DIRECTOR OF RESERVATIONS (TRANSDERM SCOP) 1 patch, transdermal, Administer over 72 Hours, Once as needed, nausea and vomiting, Starting on Tue12/30/21 at 1201, For 1 dose, Pre-Op, Contains 1.5 mg to deliver 1 mg/72 hours. sennosides-docusate sodium 8.6-50 mg per Given 01/01/2022 8:35 A M DIRECTOR OF RESERVATIONS 1 tablet tablet 1 tablet (SENOKOT-S) 1 tablet, oral, 2 times daily, First dose on Tue12/30/21 at 2100, Do not give if patient has diarrhea. Given 12/31/2021 8:57 PM DIRECTOR OF RESERVATIONS 1 tablet Given 12/31/2021 8:16 AM DIRECTOR OF RESERVATIONS 1 tablet sodium chloride 0.9 % injection [...] injection 3 mL Given 12/31/2021 8:18 AM DIRECTOR OF RESERVATIONS 3 mL 3 mL, intravenous, Every 12 hours scheduled, First dose on Tue12/30/21 at 2100, PACU & Post-Op, Peripheral Intravenous Catheter and Rapid Infusion Catheter, when no infusion to maintain patency Given 12/30/2021 9:53 PM DIRECTOR OF RESERVATIONS 3 mL zonisamide capsule 300 mg (ZONEGRAN) Given 01/01/2022 8:35 AM DIRECTOR OF RESERVATIONS 300 mg 300 mg, oral, 2 times daily, First dose on Tue12/30/21 at 2100, Swallow whole. Do NOT crush, chew or open capsule. Given 12/31/2021 8:57 PM DIRECTOR OF RESERVATIONS 300 mg Given 12/31/2021 8:16 AM DIRECTOR OF RESERVATIONS 300 mg documented in this encounter Active and Recently Administered Medications Times are shown in DIRECTOR OF RESERVATIONS. Scheduled Medication Order 12/30/2021 12/31/2021 01/01/2022 acetaminophen tablet 1,000 mg (TYLENOL) (COMPLETED) 12 (Given - Provider: Manda Barnett RBrittonN.) 1,000 mg, oral, Once, On Tue12/30/21 at [...] 1419 (Given - Provider: Emre Rodriguez APRN, DIRECTOR OF LAND ACQUISITION) 2,000 mg (rounded from 1,747.5 mg = [...] 5 (Given - Pro vider: Ezequiel Hernandez RBetsy) 0816 (Given - Provider: Maci Gonzalez R.N.)6 [...] R.N.) 0834 (Given - Provider: Corrie fall R.NBritton) 600 mg, oral, 2 times daily, First [...] Gonzalez R.N.)2056 (Given - Provider: Fanny Sifuentes RBrittonN.) 0835 (Given - Provider: Corrie Toscano RBrittonN.) [...] PERLSHAHZAD) 1739 (Given - Provider: Fanny Sifuentes RBrittonN.) 0310 (Given - Provider: Viktoriya Givens R.N.) [...] (TUMS) 2114 (Given - Provider: Fanny Sifuentes RBrittonN.)8496 (Given - Provider: Leticia Pérez, R.N.) 400 [...] Maci Gonzalez RBrittonN.) 0115 (Given - Provider: Sharifa ConcepcionN.) 2 drop, both eyes, 4 times daily [...] Givens R.N.)0414 (Given - Provider: Viktoriya Givens RBrittonN.)1135 (Given - Provider: Maci Gonzalez RBrittonN.) 0456 (Given - Provider: Viktoriya Givens R.N.) [...] Gonzalez R.N.) 0116 (Given - Provider: Viktoriya Givnes R.N.) 4 mg, intravenous, Every 6 hours [...] R.N.)2351 (Given - Provider: Leticia Pérez, R.N.) 0303 (Given - Provider: Sharifa ConcepcionN.)0707 (Given - Provider: Sharifa ConcepcionN.)1135 (Given - Provider: Corrie Toscano R.N.)1438 (Given - Provider: Corrie Toscano R.N.) 10 mg, oral, Every 3 hours PRN, severe p ain or score 7-10 of 10, Starting on Clementine 12/31/21 at 1745 oxyCODONE IR tablet 5 mg (ROXICODONE)(Linked Group 1) 1739 (See Alternative - Provider: Fanny Sifuentes RBrittonNBritton)2053 (See Alternative - Provider: Fanny Sifuentes RBrittonNBritton)2351 [...] over 3 days 1 patch (TRANSDERM S COUPON MANIFEST CLERK) (CANCELED) 1202 (Medication Applied - Provider: [...] as of this encounter Care Teams Fiberglass Pipe Covering Supervisor Relationship Specialty Start Date End Date Elsewhere, Pcp PCP - General Family Medicine 12/25/21 documented as of this encounter
--- OUTSIDE RECORDS SUMMARY | 2022-09-20 14:09 | XMS_ITS | Encounter Summary ---
:1965 Author Organization [facility] Address [address] [place] [address] Care Team Providers Name Role Phone Elsewhere, Pcp Primary Care Provider Unavailable Encounter Details Date Type Department Care Team Description 01/01/2022 Episode Changes Section of Infectious Lin [facility] in [place], (Work ) [place] [address] [place] [address] Social History Tobacco Use Types Packs/Day [...] you attend religious or Patient refused 2021 cheondoism services? Do [...] documented as of this encounter Care Teams Homemaking Rehabilitation Consultant Relationship Specialty Start Date End Date Elsewhere, Pcp PCP - General Family Medicine 12/25/21 documented as of this encounter
--- OUTSIDE RECORDS SUMMARY | 2022-09-20 14:09 | XMS_ITS | Encounter Summary ---
:1965 Author Organization [facility] Address [address] [place] [address] Care Team Providers Name Role Phone Elsewhere, Pcp Primary Care Provider Unavailable Reason for Visit Outpatient (Routine) - Closed Specialty Diagnoses / Procedures Referred By Contact Refer red To Contact Orthopedic Surgery Diagnoses Pain Shoulder Left Alfredo Herrera, [facility] [address] [place] [address] Referral ID Status Reason Start Date Expiration Date Visits Requ ested Visits Authorized [id number] Closed 12/30/2021 12/30/2022 1 1 Encounter Details Date Type Department Care Team Description 02/25/2022 Office Visit Department of Orthopedic Cyrus Polk , Pain Shoulder Left Surgery in [facility] [address] [facility] [address] [place] [phone] Social History Tobacco Use Types Packs/Day Years [...] you attend gnosticist or Patient refused 2021 hindu services? Do you belong to any clubs or No 05/17/2022 organizations such as gnosticist groups, Flints, Fleep or athletic groups, or school groups? How [...] may involve the use of a medical accounts receivable specialist made by a company withSyncurityvidya I or one of my partners have collaborated to design, develop, or improve orthopedic implants, instruments, or products. Both the [facility] and the individual surgeons involved receive royalty payments from the use of those specific devices at other institutions, but no royalties or any other payments are paid for the use of those devices with any [facility] patient. The clinical rationale for the use of those devices as well as the availability and applicability of alternative devices was reviewed. He understands that the final decision for the use of a specific medical accounts receivable specialist often is made at the time [...] as of this encounter Care Teams Pantograph Watcher Relationship Specialty Start Date End Date Elsewhere, Pcp PCP - General Family Medicine 12/25/21 documented as of this encounter
--- OUTSIDE RECORDS SUMMARY | 2022-09-20 14:09 | XMS_ITS | Encounter Summary ---
:1965 Author Organization [facility] Address [address] [place] [address] Care Team Providers Name Role Phone Elsewhere, Pcp Primary Care Provider Unavailable Encounter Details Date Type Department Care Team Description 01/08/2022 Orders Only Pharmacy Prior Auth RO Elsewhere, Pcp [phone] Social History Tobacco Use Types Packs/Day Years [...] you attend evangelical or Patient refused 2021 caodaism services? Do [...] documented as of this encounter Care Teams Bounty Trapper Relationship Specialty Start Date End Date Elsewhere, Pcp PCP - General Family Medicine 12/25/21 documented as of this encounter
--- OUTSIDE RECORDS SUMMARY | 2022-09-20 14:09 | XMS_ITS | Encounter Summary ---
:1965 Author Organization [facility] Address [address] [place] [address] Care Team Providers Name Role Phone Elsewhere, Pcp Primary Care Provider Unavailable Reason for Visit Reason Comments OPAT Intervention Encounter Details Date Type Department Care Team Description 01/28/2022 Clinical Communication Section of Ruth Eddy (Intervention Infectious T, R.N. ) Diseases in [address] [place] [phone] [place] [address] [place], [place] (Work) [phone] Social History Tobacco Use Types Packs/Day Years [...] you attend synagogue or Patient refused 2021 jewish services? Do [...] are for now to obtain ALP trend. L CHECKER Telephone Encounter - Desirae Domingo RBrittonN. - 02/01/2022 12:11 PM CST Maritza calls from [place] regarding Alk phos from 01/28. It is greater than 1.5 the upper limit of normal. L CHECKER Telephone Encounter - Su Greene, Pharm.D., R.Ph. - 01/29/2022 8:49 AM CST Reviewed WBC trend including WBC on 01/28, no changes at this time, see note from my colleague Jennifer Roca for details. L CHECKER Telephone Encounter - Ruth Eddy R.N. - 01/29/2022 8:14 AM CST OPAT NOTE ?? Infusion Provider: [facility], phone: [phone], fax: [phone] Labs and site care at [facility], phone: [phone] Antimicrobial(s) currently prescribed: See Med List Hyperlink in note Firm stop date: 02/11/22 ?? Lab results from are viewable in the MCR record--listed as External Labs (received via fax, which has been uploaded to Document Viewer/Media) ?? Interpretation and action: The labs were reviewed. WBC and ANC are improving. I will send this to the provider for review. L CHECKER Telephone Encounter - Jennifer Roca Pharm.D., R.Ph. - 01/28/2022 10:21 AM METAL CHECKER Pertinent labs and antimicrobial regimen as indicated [...] time. For monitoring: continue weekly OPAT labs. L CHECKER Telephone Encounter - Ruth Eddy RBrittonN. - 01/28/2022 9:40 AM CST OPAT NOTE Infusion Provider: [facility], phone: [phone], fax: [phone] Labs and site care at [facility], phone: [phone] Antimicrobial(s) currently prescribed: See Med List Hyperlink in note Firm stop date: 02/11/22 Lab results from 01/21/2022 are viewable in the MCR record--listed as External Labs (received via fax, which has been uploaded to Document Viewer/Media) Interpretation and action: The labs were reviewed. WBC is 3.6 and ANC is 1.42. Alk Phos was not done. [facility]. Orders were sent to [facility] that included alk phos that will be drawn today, 01-28-2022. L CHECKER documented in this encounter Plan of Treatment Not on filedocumented as of this encounter Procedures Procedure Name Priority Date/Time Associated Comments Diagnosis CBC WITH DIFFERENTIAL, B Routine 01/28/2022 3:00 Results for this PM METAL CHECKER procedure are i n the results section. ALANINE AMINOTRANSFERASE Routine 01/28/2022 3:00 Results for this (ALT), S/P PM METAL CHECKER procedure are i n the results section. ALKALINE PHOSPHATASE, Routine 01/28/2022 3:00 Res ults for this S/P PM METAL CHECKER procedure are i n the results section. CREATININE WITH EGFR, Routine 01/28/2022 3:00 Res ults for this S/P PM METAL CHECKER procedure are i n the results section. [...] Results ALT (Alanine Aminotransferase) (01/28/2022 3:00 PM METAL CHECKER) athologist Signature EXT ALT 20 4 - 35 [facility] REFERR[facility] Specimen (Source) Anatomical Location Collection Method / Collectio n Time Received Time / Laterality Volume Blood (Blood, Venous) Laly Ward APRN C.N.P. LAB BLOOD ADD-ON Performing Organization Address City/State/ZIP Code Phon e Number [facility] REFERRAL LAB (ABNORMAL) Alkaline Phosphatase (01/28/2022 3:00 PM METAL CHECKER) athologist Signature EXT Alkaline 97 (A) 40 - 50 [facility] REFERRAL Phosphatase LAB Specimen (Source) Anatomical Location Collection Method / Collectio n Time Received Time / Laterality Volume Blood (Blood, Venous) Laly Ward APRN, C.N.P. LAB BLOOD ADD-ON Performing Organization Address City/State/ZIP Code Phon e Number [facility] REFERRAL LAB Creatinine with Estimated GFR (01/28/2022 3:00 PM METAL CHECKER) athologist Signature EXT Creatinine 0.6 0.5 - [...] CBC with Differential, Blood (01/28/2022 3:00 PM METAL CHECKER) Analysis Performed At Patho logist Time Signature [...] as of this encounter Care Teams Manager Voice Relationship Specialty Start Date End Date Elsewhere, Pcp PCP - General Family Medicine 12/25/21 documented as of this encounter
--- OUTSIDE RECORDS SUMMARY | 2022-09-20 14:09 | XMS_ITS | Encounter Summary ---
:1965 Author Organization [facility] Address [address] [place] [address] Care Team Providers Name Role Phone Elsewhere, Pcp Primary Care Provider Unavailable Reason for Visit Reason Comments OPAT Intervention Encounter Details Date Type Department Care Team Description 01/07/2022 Clinical Communication Section of MATTHEW Tolbert (Intervention) Infectious Diseases [facility] [phone] 200 [facility] (Work) [place] [address] Social History Tobacco Use Types Packs/Day Years [...] Dandy Reyes, Pharm.D. - 01/12/2022 9:38 AM LOCKSMITH Pertinent labs and antimicrobial regimen as indicated [...] >0.3 mg/dL and absolute value >1.0 mg/dL. SMITH Telephone Encounter - Steven Dennis R.N. - 01/12/2022 9:13 AM CST OPAT NOTE Infusion Provider: [facility], phone: [phone], fax: [phone] Labs and site care at [facility], phone: [phone] Antimicrobial(s) currently prescribed: See Med List Hyperlink in note Firm stop date: 02/11/22 Lab results from 01/07/22 are viewable in the MCR record--listed as External Labs (received via fax, which has been uploaded to Document Viewer/Media) Interpretation and action: Will send to the OPAT pharmacist to review the creatinine, which has decreased >30%. Alk phos wasnot drawn. SMITH documented in this encounter Plan of Treatment Not on filedocumented as of this encounter Procedures Procedure Name Priority Date/Time Associated Comments Diagnosis CBC WITH DIFFERENTIAL, B Routine 01/07/2022 2:30 Results for this PM LOCKSMITH procedure are i n the results section. ALANINE AMINOTRANSFERASE Routine 01/07/2022 2:30 Results for this (ALT), S/P PM LOCKSMITH procedure are i n the results section. CREATININE WITH EGFR, Routine 01/07/2022 2:30 Res ults for this S/P PM LOCKSMITH procedure are i n the results section. documented in this encounter Results ALT (Alanine Aminotransferase) (01/07/2022 2:30 PM LOCKSMITH) P athologist Signature EXT ALT 10 4 - 35 [facility]) Specimen (Source) Anatomical Location Collection Method / Collectio n Time Received Time / Laterality Volume Blood (Blood, Venous) Laly Ward APRN, C.N.P. LAB BLOOD ADD-ON Performing Organization Address City/[facility] [employer] [facility][note 3], [address] [place] [address] [facility]) Creatinine with Estimated GFR (01/07/2022 2:30 PM LOCKSMITH) Analysis Performed At Patho logist Time Signature EXT Creatinine 0.5 0.5 - 1.5 [place] mg/dL [facility]) Specimen (Source) Anatomical Location Collection Method / Collectio n Time Received Time / Laterality Volume Blood (Blood, Venous) Narrative This result has an attachment that is no t available. Laly Ward APRN, C.N.P. LAB BLOOD ADD-ON Performing Organization Address City/[facility] Phon e Number [facility], [address] [place] [id number] [facility]) (ABNORMAL) CBC with Differential, Blood (01/07/2022 2:30 PM LOCKSMITH) [facility] gist Method Time Signature EXT Platelet 349 150 - 450 [facility], [facility]) EXT Eosinophils 0.28 0 - 0.5 [facility]) EXT Hemoglobin 8.7 (A) 12 - 15.5 [facility], [facility]) EXT Absolute 3.19 1.7 - 7 [place] Neutrophils [facility], [facility]) EXT White Blood 5.4 5.0 - [place] Cell (WBC) 10.0 [facility]) Specimen (Source) Anatomical Location Collection Method / Collectio n Time Received Time / Laterality Volume Blood (Blood, Venous) Narrative This result has an attachment that is no t available. Laly Ward APRN C.N.P. LAB BLOOD ADD-ON Performing Organization Address City/State/ZIP Code Phon e Number [facility], [address] [place] [address] [facility]) documented in this encounter Visit Diagnoses Not on filedocumented in this encounter Additional Health Concerns Assessment Noted Time PHQ-9 Depression Total Score: 16 02/11/2021 12:00 AM C DT documented as of this encounter Care Teams Band Saw Runner Relationship Specialty Start Date End Date Elsewhere, Pcp PCP - General Family Medicine 12/25/21 documented as of this encounter
--- OUTSIDE RECORDS SUMMARY | 2022-09-20 14:09 | XMS_ITS | Encounter Summary ---
:1965 Author Organization [facility] Address [address] [place] [address] Care Team Providers Name Role Phone Elsewhere, Pcp Primary Care Provider Unavailable Encounter Details Date Type Department Care Team Description 01/08/2022 Clinical Communication Pharmacy Prior Auth ОЛЬГА Carrera M.D. [phone] Social History Tobacco Use Types Packs/Day Years [...] attend oriental orthodox or Patient refused 2021 anglican services? Do [...] Camelia CINTRON. Thank you, The OPPA Team WORKER documented in this encounter Plan of Treatment Not on filedocumented as of this encounter Visit Diagnoses Not on filedocumented in this encounter Additional Health Concerns Assessment Noted Time PHQ-9 Depression Total Score: 16 02/11/2021 12:00 AM C DT documented as of this encounter Care Teams Outside B2B Sales Relationship Specialty Start Date End Date Elsewhere, Pcp PCP - General Family Medicine 12/25/21 documented as of this encounter
--- OUTSIDE RECORDS SUMMARY | 2022-09-20 14:09 | XMS_ITS | Encounter Summary ---
:1965 Author Organization [facility] Address [address] [place] [address] Care Team Providers Name Role Phone Elsewhere, Pcp Primary Care Provider Unavailable Reason for Visit Reason Comments OPAT Normal labs Encounter Details Date Type Department Care Team Description 02/09/2022 Clinical Communication Section of Ruth Eddy (Normal labs) Infectious T, R.N. Diseases in [address] [place] [phone] [place] [address] [place], [place] (Work) [phone] Social History Tobacco Use Types Packs/Day Years [...] you attend mu-ism or Patient refused 2021 voodoo services? Do [...] Provider: [facility], phone: [phone], fax: [phone] Labs and site care at [facility], phone: [phone] Antimicrobial(s) currently prescribed: See Med List Hyperlink [...] documented as of this encounter Care Teams Core Fitter Relationship Specialty Start Date End Date Elsewhere, Pcp PCP - General Family Medicine 12/25/21 documented as of this encounter
--- OUTSIDE RECORDS SUMMARY | 2022-09-20 14:09 | XMS_ITS | Encounter Summary ---
:1965 Author Organization [facility] Address [address] [place] [address] Care Team Providers Name Role Phone Elsewhere, Pcp Primary Care Provider Unavailable Reason for Visit Reason Comments OPAT Normal Labs Encounter Details Date Type Department Care Team Description 01/15/2022 Clinical Communication Section of Madhav Rizo (Normal Labs) Infectious Diseases M, M.P.H., in [place] [address] [facility] 200 [place] [address] [phone] Social History Tobacco Use Types Packs/Day Years [...] you attend buddhism or Patient refused 2021 buddhist services? Do [...] Rizo M.P.H., R.N. - 01/15/2022 3:24 PM ENGINEERING MODEL MAKER OPAT NOTE Infusion Provider: Dennis [facility] Specialty Infusion Services, phone: [phone], fax: [phone] Labs and site care at [facility], phone: [phone] Antimicrobial(s) currently prescribed: See Med List Hyperlink in note Firm stop date: 02/11/22 Lab results from 01/14/2022 are viewable in the MCR record--listed as External Labs (received via fax, which has been uploaded to Document Viewer/Media) Interpretation and action: The labs were satisfactory and acceptable. No change in plan as per OPAT Practice Guideline. NEERING MODEL MAKER documented in this encounter Plan of [...] Signature EXT ALT 14 4 - 35 [facility] Specimen (Source) Anatomical Location Collection Method / Collectio n Time Received Time / Laterality Volume Blood (Blood, Venous) Laly Ward APRN, C.N.P. LAB BLOOD ADD-ON Performing Organization Address City/[facility]/ZIP Code Phon e Number [facility] [address] [place] [address] Creatinine with Estimated GFR (01/14/2022) athologist Signature EXT Creatinine 0.6 0.5 - 1.5 [place] mg/dL [facility] Specimen (Source) Anatomical Location Collection Method / Collectio n Time Received Time / Laterality Volume Blood (Blood, Venous) Laly Ward APRN, C.N.P. LAB BLOOD ADD-ON Performing Organization Address City/[facility]/ZIP [facility] Phon e Number [facility] [address] [place] [address] (ABNORMAL) CBC with Differential, Blood (01/14/2022) athologist Signature EXT Platelet 406 150 - 450 [place] Count [facility] EXT Hemoglobin 9 (A) 12 - 15.5 [facility] EXT Absolute 3.49 1.7 - 7 [place] Neutrophils [facility] EXT White Blood 5.7 5.0 - 10.0 [place] Cell (WBC) Count [facility] Specimen (Source) Anatomical Location Collection Method / Collectio n Time Received Time / Laterality Volume Blood (Blood, Venous) Narrative This result has an attachment that is no t available. Laly Ward APRN, C.N.P. LAB BLOOD ADD-ON Performing Organization Address City/[facility]/ZIP [facility] Phon e Number [facility] [address] [place] [address] documented in this encounter Visit Diagnoses Not on filedocumented in this encounter Additional Health Concerns Assessment Noted Time PHQ-9 Depression Total Score: 16 02/11/2021 12:00 AM C DT documented as of this encounter Care Teams Social Work Supervisor Relationship Specialty Start Date End Date Elsewhere, Pcp PCP - General Family Medicine 12/25/21 documented as of this encounter
--- OUTSIDE RECORDS SUMMARY | 2022-09-20 14:09 | XMS_ITS | Encounter Summary ---
:1965 Author Organization [facility] Address [address] [place] [address] Care Team Providers Name Role Phone Elsewhere, Pcp Primary Care Provider Unavailable Encounter Details Date Type Department Care Team Description 01/05/2022 Clinical Communication Section of Infectious Ed , Laly Diseases in [facility], ECONOMIC HISTORIAN, C.N.P. [place] 200 [facility] 200 [place] [phone] [phone] Social History Tobacco Use Types Packs/Day Years [...] you attend religious or Patient refused 2021 methodist services? Do [...] Ward APRN, C.N.P. - 01/05/2022 2:17 PM DOT ETCHER Left shoulder synovial fluid culture from 12/30 has been reported for growth of oxacillin sensitive Staphylococcus epidermidis. No change recommended to the patient's current regimen of ceftriaxone. ETCHER Telephone Encounter - Laly Ward APRN, C.N.P. - 01/05/2022 2:17 PM DOT ETCHER ----- Message from Su Greene, Pharm.D., R.Ph. sent at 01/05/2022 9:51 AM DOT ETCHER ----- Patient with shoulder infection (with previous [...] changes please message RST IFD [facility] PHARMACIST pool. If urgent, page [phone] M-F 9am-5 pm ETCHER documented in this encounter Plan of Treatment Not on filedocumented as of this encounter Visit Diagnoses Not on filedocumented in this encounter Additional Health Concerns Assessment Noted Time PHQ-9 Depression Total Score: 16 02/11/2021 12:00 AM C DT documented as of this encounter Care Teams Quality Review Specialist Relationship Specialty Start Date End Date Elsewhere, Pcp PCP - General Family Medicine 12/25/21 documented as of this encounter
--- OUTSIDE RECORDS SUMMARY | 2022-09-20 14:09 | XMS_ITS | Encounter Summary ---
:1965 Author Organization [facility] Address 200 [place] [address] Care Team Providers Name Role Phone Elsewhere, Pcp Primary Care Provider Unavailable Reason for Visit Reason Comments Labs Only Encounter Details Date Type Department Care Team Description 02/05/2022 Documentation Section of Infectious Amna Kaur , Labs Only Diseases in [facility] 200 [facility] 200 [place] [address] [phone] Social History Tobacco Use Types Packs/Day Years [...] of this encounter Progress Notes Amna Kaur, RBrittonN. - 02/05/2022 4:14 PM CST Labs entered at this time. RONMENTAL RESEARCH PROJECT MANAGER documented in this encounter Plan of Treatment Not on filedocumented as of this encounter Procedures Procedure Name Priority Date/Time Associated Comments Diagnosis CBC WITH DIFFERENTIAL, B Routine 02/04/2022 3:06 Results for this PM ENVIRONMENTAL RESEARCH PROJECT MANAGER procedure are i n the results section. ALANINE AMINOTRANSFERASE Routine 02/04/2022 3:06 Results for this (ALT), S/P PM ENVIRONMENTAL RESEARCH PROJECT MANAGER procedure are i n the results section. ALKALINE PHOSPHATASE, Routine 02/04/2022 3:06 Res ults for this S/P PM ENVIRONMENTAL RESEARCH PROJECT MANAGER procedure are i n the results section. CREATININE WITH EGFR, Routine 02/04/2022 3:06 Res ults for this S/P PM ENVIRONMENTAL RESEARCH PROJECT MANAGER procedure are i n the results section. documented in this encounter Results ALT (Alanine Aminotransferase) (02/04/2022 3:06 PM ENVIRONMENTAL RESEARCH PROJECT MANAGER) P athologist Signature EXT ALT 20 4 - 35 OTHER (SPECIFY IN HAND MOLDER AND CASTER) Specimen (Source) Anatomical Location Collection Method / Collectio n Time Received Time / Laterality Volume Blood (Blood, Venous) Resulting Agency Comment [facility] Abinash Madeleine M.D. LAB BLOOD ADD-ON Performing Organization Address City/State/ZIP Code Phon e Number OTHER (SPECIFY IN HAND MOLDER AND CASTER) OTHER (SPECIFY IN HAND MOLDER AND CASTER) N/A Alkaline Phosphatase (02/04/2022 3:06 PM ENVIRONMENTAL RESEARCH PROJECT MANAGER) P athologist Signature EXT Alkaline 102 40 - 150 OTHER (SPECIFY Phosphatase IN HAND MOLDER AND CASTER) Specimen (Source) Anatomical Location Collection Method / Collectio n Time Received Time / Laterality Volume Blood (Blood, Venous) Resulting Agency Comment [facility] Gucci Salvador M.D. LAB BLOOD ADD-ON Performing Organization Address City/[facility] Phon e Number OTHER (SPECIFY IN HAND MOLDER AND CASTER) OTHER (SPECIFY IN HAND MOLDER AND CASTER) N/A Creatinine with Estimated GFR (02/04/2022 3:06 PM ENVIRONMENTAL RESEARCH PROJECT MANAGER) P athologist Signature EXT Creatinine 0.7 0.5 - 1.5 OTHER (SPECIFY mg/dL IN HAND MOLDER AND CASTER) Specimen (Source) Anatomical Location Collection Method / Collectio n Time Received Time / Laterality Volume Blood (Blood, Venous) Resulting Agency Comment [facility] Gucci Salvador M.D. LAB BLOOD ADD-ON Performing Organization Address City/[facility]/ZIP [facility] Phon e Number OTHER (SPECIFY IN HAND MOLDER AND CASTER) OTHER (SPECIFY IN HAND MOLDER AND CASTER) N/A (ABNORMAL) CBC with Differential, Blood (02/04/2022 3:06 PM ENVIRONMENTAL RESEARCH PROJECT MANAGER) P athologist Signature EXT Platelet 253 150 - 450 OTHER Count (SPECIFY IN HAND MOLDER AND CASTER) EXT Hemoglobin 9.1 (A) 12 - 15.5 OTHER (SPECIFY IN HAND MOLDER AND CASTER) EXT White Blood 4.0 (A) 5.0 - 10.0 OTHER Cell (WBC) (SPECIFY IN Count HAND MOLDER AND CASTER) Specimen (Source) Anatomical Location Collection Method / Collectio n Time Received Time / Laterality Volume Blood (Blood, Venous) Narrative This result has an attachment that is no t available. Resulting Agency Comment [facility] Gucci Salvador M.D. LAB BLOOD ADD-ON Performing Organization Address City/[facility]/ZIP [facility] Phon e Number OTHER (SPECIFY IN HAND MOLDER AND CASTER) OTHER (SPECIFY IN HAND MOLDER AND CASTER) N/A documented in this encounter Visit Diagnoses Not on filedocumented in this encounter Additional Health Concerns Assessment Noted Time PHQ-9 Depression Total Score: 16 02/11/2021 12:00 AM C DT documented as of this encounter Care Teams Joinery Patternmaker Relationship Specialty Start Date End Date Elsewhere, Pcp PCP - General Family Medicine 12/25/21 documented as of this encounter
--- OUTSIDE RECORDS SUMMARY | 2022-09-20 14:09 | XMS_ITS | Encounter Summary ---
:1965 Author Organization [facility] Address [address] [place] [address] Care Team Providers Name Role Phone Elsewhere, Pcp Primary Care Provider Unavailable Encounter Details Date Type Department Care Team Description 01/01/2022 Clinical Communication [facility] Pharmacy Sapna Dodge C.Ph.T. 201 [facility] [phone] [place], [place] ([facility]) [address] Social History Tobacco Use Types Packs/Day [...] you attend samaritan or Patient refused 2021 buddhist services? Do [...] documented as of this encounter Care Teams Therapeutic Case Manager Relationship Specialty Start Date End Date Elsewhere, Pcp PCP - General Family Medicine 12/25/21 documented as of this encounter
--- OUTSIDE RECORDS SUMMARY | 2022-09-20 14:09 | XMS_ITS | Encounter Summary ---
:1965 Author Organization [facility] Address 200 [place] [address] Care Team Providers Name Role Phone Elsewhere, Pcp Primary Care Provider Unavailable Reason for Referral Outpatient (Routine) - Closed Specialty Diagnoses / Procedures Referred By Contact Refer red To Contact Infectious Diseases Diagnoses Aftercare Total Shoulder Arthroplasty Jose Guadalupe Nixon [place] M.D. 200 [place] [address] Referral ID Status Reason Start Date Expiration Date Visits Requ ested Visits Authorized [id number] Closed 01/01/2022 01/01/2023 1 1 CH LANGUAGE PATHOLOGIST ASSISTANT Reason for Visit Reason Comments OPAT Post Hospital Follow-up Encounter Details Date Type Department Care Team Description 01/01/2022 Clinical Communication RST HIM MATTHEW Nixon; Post Hospital 200 [facility] Jose Guadalupe Garcia M.D. Follow-up [place], [place] 200 [facility] [address] [place] [address] Social History Tobacco Use Types Packs/Day Years [...] you attend worship or Patient refused 2021 christianity services? Do [...] Priority Associated Diagnoses Order S [facility] Infectious Disease Outpatient Routine Aftercare Total [...] M.D. LAB BLOOD ADD-ON Performing Organization Address City/State/[facility] Phon e Number [facility] - [address] [place] [address] [place] [id number] CRP (C-Reactive Protein) (02/25/2022 10:09 AM CDT) P athologist Signature C-Reactive <3.0 <=8.0 mg/L 02/25/2022 DTL Protein (CRP), 11:34 AM CDT S Specimen Anatomical Collection Method Collection Time Receive d Time (Source) Location / / Volume Laterality Blood (Blood, 02/25/2022 10:09 02/25/2022 Venous) AM CDT 11:00 AM CDT Jose Guadalupe Nixon M.D. LAB BLOOD ADD-ON Performing Organization Address [facility] Phon e Number [facility] - [address] [place] [address] (ABNORMAL) CBC with Differential, Blood (02/25/2022 [...] [facility] [place] [facility] [address] [place], [place] [address] [facility] [place] [address] Laboratories-[facility] [address] documented in this encounter Visit Diagnoses Diagnosis Aftercare Total Shoulder Arthroplasty - Primary documented in this encounter Additional Health Concerns Assessment Noted Time PHQ-9 Depression Total Score: 16 02/11/2021 12:00 AM C DT documented as of this encounter Care Teams Cable Television Technician Relationship Specialty Start Date End Date Elsewhere, Pcp PCP - General Family Medicine 12/25/21 documented as of this encounter
--- OUTSIDE RECORDS SUMMARY | 2022-09-20 14:09 | XMS_ITS | Encounter Summary ---
:1965 Author Organization [facility] Address [address] [place] [address] Care Team Providers Name Role Phone Elsewhere, Pcp Primary Care Provider Unavailable Reason for Referral Outpatient (Routine) - Authorized Specialty Diagnoses / Procedures Referred By Contact Refer red To Contact Diagnoses Case Checker Antibiotic Treatment Tejal Medley MPAS, P.A.-C., M.S. [address] [place] [phone] Referral ID Status Reason Start Expiration Visits Visits Date Date Requested Authorized [id number] Authorized Patient 02/08/2022 02/08/2023 1 1 Preference Reason for Visit Reason Comments OPAT Care Coordination Encounter Details Date Type Department Care Team Description 02/08/2022 Clinical Communication Section of Desirae Domingo (Care Infectious Diseases M, R.N. Coordination) in [place], [address] [place] [address] [place] [phone] [place], [place] [phone] (Work) [phone] Social History Tobacco Use Types Packs/Day Years [...] you attend mandaeism or Patient refused 2021 pentecostal services? Do you belong to any clubs or No 05/17/2022 organizations such as mandaeism groups, unions, fraXradia or athletic groups, or school groups? How [...] 02/08/2022 12:06 PM CDT Maritza calls from [employer]. [employer] stop date of 02/11 for IV antibiotics. Maritza requests order be faxed to [facility] where patient has labs and PICC site care done. I called the [facility], .Pull PIC order can be faxed to [phone]. documented in this encounter Plan of Treatment Not on filedocumented as of this encounter Visit Diagnoses Diagnosis Long-Term Antibiotic Treatment - Primary documented in this encounter Additional Health Concerns Assessment Noted Time PHQ-9 Depression Total Score: 16 02/11/2021 12:00 AM C DT documented as of this encounter Care Teams Principal Software Architect Relationship Specialty Start Date End Date Elsewhere, Pcp PCP - General Family Medicine 12/25/21 documented as of this encounter
--- OUTSIDE RECORDS SUMMARY | 2022-09-20 14:09 | XMS_ITS | Encounter Summary ---
:1965 Author Organization [facility] Address [address] [place] [address] Care Team Providers Name Role Phone Elsewhere, Pcp Primary Care Provider Unavailable Reason for Visit Reason Comments OPAT Monitoring Complete Encounter Details Date Type Department Care Team Description 02/12/2022 Clinical Communication Section of Kylie Siddiqui (Monitoring Infectious Diseases M, R.N. Complete) in [facility] [phone] [place] (Work) [address] [place] [phone] Social History Tobacco Use Types Packs/Day Years [...] you attend yazidi or Patient refused 2021 protestant services? Do [...] Complete) Information Discussed Princess, a nurse from [place], called to see if any labs need [...] documented as of this encounter Care Teams Family Intervention Specialist Relationship Specialty Start Date End Date Elsewhere, Pcp PCP - General Family Medicine 12/25/21 documented as of this encounter
--- OUTSIDE RECORDS SUMMARY | 2022-09-20 14:09 | XMS_ITS | Encounter Summary ---
:1965 Author Organization [facility] Address [address] [place] [address] Care Team Providers Name Role Phone Elsewhere, Pcp Primary Care Provider Unavailable Reason for Visit Reason Comments OPAT Lab request Encounter Details Date Type Department Care Team Description 01/26/2022 Clinical Communication Section of Ruth Eddy (Lab request) Infectious T, R.N. Diseases in [address] [place] [phone] [place] [address] [place], [place] (Work) [phone] Social History Tobacco Use Types Packs/Day Years [...] attend oriental orthodox or Patient refused 2021 caodaism services? Do [...] Eddy RRebekah. - 01/26/2022 4:13 PM CST [facility] ITC, phone: [phone] was called and message left to fax us lab results. Our fax and phone number was given. TILE MAKER documented in this encounter Plan of Treatment Not on filedocumented as of this encounter Visit Diagnoses Not on filedocumented in this encounter Additional Health Concerns Assessment Noted Time PHQ-9 Depression Total Score: 16 02/11/2021 12:00 AM C DT documented as of this encounter Care Teams Arabic Professor Relationship Specialty Start Date End Date Elsewhere, Pcp PCP - General Family Medicine 12/25/21 documented as of this encounter
--- OUTSIDE RECORDS SUMMARY | 2022-09-20 14:09 | XMS_ITS | Encounter Summary ---
:1965 Author Organization [facility] Address [address] [place] [address] Care Team Providers Name Role Phone Elsewhere, Pcp Primary Care Provider Unavailable Reason for Visit Outpatient (Routine) - Closed Specialty Diagnoses / Procedures Referred By Contact Refer red To Contact Infectious Diseases Diagnoses Aftercare Total [facility]thro[facility] 200 [place] [address] Referral ID Status Reason Start Date Expiration Date Visits Requ ested Visits Authorized [id number] Closed 01/01/2022 01/01/2023 1 1 Encounter Details Date Type Department Care Team Description 02/25/2022 Comprehensive Visit Section of Christiano Nixon M.D. 200 [place] [phone] Cotton Baler Antibiotic Treatment (Primary Dx); Infectious Diseases Russell Santos M.D. 200 [place] [phone] Infection Shoulder Prosthesis Subsequent ; in [place], Direct Infecti on Of Left Shoulder In Infectious And Parasitic Diseases Classified Elsewhere ([facility]); [place] Aftercare Total Shoulder Art hroplasty [address] [place] [phone] Social History Tobacco Use Types Packs/Day [...] you attend shinto or Patient refused 2021 bahai services? Do [...] 56 y.o. Birthdate: 1965 Sex: female Address: [address] [place] [phone] Referring Provider: Jose Guadalupe Nixon M.D. REASON [...] resistance on OSH AST. She presented to [facility] (unclear if on antibiotics) for further evaluation given persistent L shoulder pain 08/2021 prompting aspiration (09/25/21) which revealed elevated TNC (35034) with 81% PMNs with cultures positive for [...] thorough debridement.??The patient was subsequently admitted to [facility] for further management. Intraoperative [...] is consistent with aspiration results from original [facility] evaluation which is likely client account representative of the culprit organism causing her [...] of Infectious Diseases OPAT monitoring program at [phone] after dismissal. Primary service to follow labs while patient is hospitalized. [place] pharmacist to adjust dosing after dismissal [...] 150 mg by mouth every morning. ??? issfgvcaiz-vctsxsqlcjlrb-ypzg (ESGIC) 50-325-40 mg per tablet Take 1 [...] 11 mo ago Resulting Agency CULTURE RESULT??Abnormal?? [facility] CULTURE 1+ Staphylococcus coagulase negative [facility] GRAM STAIN ? 1+ PMNs [facility] GRAM STAIN ? No organisms seen [facility] GRAM STAIN ? 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 Hepatic Function Panel ??? Basic Metabolic Panel Spent 36 minutes in total time both otmh-ft-enqd and non ehqq-hi-cfli to face documented in this encounter Plan [...] 02/25/2022 DTL Black/ mL/min/BSA 11:19 AM CDT Tristanian Comment: ----ADDITIONAL INFORMATION---- Estimated GFR calculated using the 2009 CKD_EPI creatinine equation. eGFR-Black/ 85 >=60 mL/min/BSA 03/31/ 2022 11:19 AM CDT DTL Comment: ----ADDITIONAL INFORMATION---- [...] M.D. LAB BLOOD ADD-ON Performing Organization Address City/State/[facility] Code Phon e Number [facility] - [address] [place] [address] [facility] [place] [address] Laboratories-[facility] 200 [facility] Hepatic Function Panel (02/25/2022 10:09 AM CDT) [facility] gist Method Time Signature Bilirubin, Total, [...] MEDICAL CENTER LABORATORIES - [address] [place], [place] [address] [facility] [place] [address] Laboratories-[facility] [address] documented in this encounter Visit Diagnoses Diagnosis Cotton Baler Antibiotic Treatment - Primary Infection Shoulder Prosthesis Subsequent Direct Infection Of Left Shoulder In Inf ectious And Parasitic Diseases Classified Elsewhere (HCC) Aftercare Total Shoulder Arthroplasty documented in this encounter Additional Health Concerns Assessment Noted Time PHQ-9 Depression Total Score: 16 02/11/2021 12:00 AM C DT documented as of this encounter Care Teams Overlock Collar Setter Relationship Specialty Start Date End Date Elsewhere, Pcp PCP - General Family Medicine 12/25/21 documented as of this encounter
--- OUTSIDE RECORDS SUMMARY | 2022-09-20 14:10 | XMS_ITS | Encounter Summary ---
:1965 Author Organization [facility] Address [address] [place] [address] Care Team Providers Name Role Phone Elsewhere, Pcp Primary Care Provider Unavailable Encounter Details Date Type Department Care Team Description 12/30/2021 Surgery RST SEBAS MORAN OR Cyrus Polk, ARTHROPLASTY RESECTION [address] [facility] [facility] [place] [address] [address] [facility] [phone] [place] [address] Social History Tobacco Use Types Packs/Day Years [...] you attend jainism or Patient refused 2021 episcopalian services? Do [...] or the highest technical, or vocational [employer] degree you have received? Sex Assigned at Date Recorded Female 03/01/2019 10:12 AM CDT documented as of this encounter Last Filed Vital Signs Vital Sign Reading Time Taken Comments Blood Pressure 119/74 12/30/2021 12:47 PM CHECKER/STOCKER Pulse 79 12/30/2021 12:47 PM CHECKER/STOCKER Temperature 36.8 ??C (98.2 ??F) 12/30/2021 11:22 AM CHECKER/STOCKER Respiratory Rate 20 12/30/2021 12:47 PM CHECKER/STOCKER Oxygen Saturation 99% 12/30/2021 12:47 PM CHECKER/STOCKER Inhaled Oxygen Concentration - - Weight 69.9 kg (154 lb 1.6 12/30/2021 11:22 AM oz) CHECKER/STOCKER Height 150.5 cm (4' 11.25) 12/30/2021 11:22 AM no shoe s/boots CHECKER/STOCKER Body Mass Index 30.86 12/30/2021 11:22 AM CHECKER/STOCKER documented in this encounter Discharge Summaries Dario Carrera M.D. - 01/01/2022 8:50 AM CST DISCHARGE SUMMARY BRIEF OVERVIEW Hospital: [facility] Discharge Provider: Cyrus Polk M.D. Primary [...] RST ROEI OR DISCHARGE DISPOSITION Home-Health Care [facility] [6] ACTIVE ISSUES REQUIRING FOLLOW UP Active [...] were provided to the patient and caregiver(s). KER/STOCKER documented in this encounter Discharge Instructions AttachmentsThe following attachments cannot be sent through Care Everywhere. Continuous Nerve-Block Infusion System: Often called a ???pain pump?? (Niuean) documented in this encounter Medications at Time [...] needed. multivit-min/iron/folic/ Take 1 tablet by 0 [id number] (HAIR, SKIN AND mouth daily. NAILS ADVANCED [...] when she got up for the day. Ruth Layne PAna, D.P.T. - 01/01/2022 4:29 PM CST [...] [facility] Form: -[facility] Basic [...] steps with a railing?: A Little AM-[facility] Basic Mobility (V.2) Raw Score: 23 AM-[facility] Basic Mobility (V.2) Standardized Score: 50.88 Interpretation: Clinicians answer the -[facility] [...] quad cane since it is not available [facility] by prescription. Barriers to Discharge Home: Other [...] (min): 23 min Ruth Gonzalez P.T., D.P.T. KER/STOCKER Elvira Duncan, RBetsy - 01/01/2022 3:21 PM CST Post Anesthesia [...] educational pamphlet Continuous Nerve-Block Infusion System ( [id number]).?? Discussed at home removal of nervecatheter, signs of toxicity, and provided the 20/06 number to call with questions.?? All questions answered. On-Q infusion will end Wednesday 01/03 at 2230. Informed patient she may wait until Tuesday morning to remove if she is sleeping. Note OnQ will not be empty as running at 6ml/hr with fill of 550cc. She is aware of this. KER/STOCKER Thao You L.I.C.SBrittonWBritton, M.S.W. - 01/01/2022 11:23 AM CST SUBJECTIVE Referral Data The patient was seen for ongoing discharge needs. A list of infusion options (that patient/family geographically resides or requests) has been provided to and reviewed with patient/family. Disclaimers: Financial disclosure provided informing patient of our ownership and financial relationship of the [facility]home health & hospice agencies. Reviewed insurance coverage, [...] Selected Services Address Phone Fax Patient Preferred Critical access hospital Infusion and IV Therapy [address], [place] [address] [phone] -- Contact: Intake NURSING: - Adjust the [...] draws will be managed by Outpatient Facility: [facility] Address: [address] [place] [address] Contact: Princess Jimenez will provide IV access [...] continue to follow. Joe Ervin, M.S.W. 01/01/2022 KER/STOCKER Gucci Salvador M.D. - 01/01/2022 10:45 AM CST DEMOGRAPHIC INFORMATION [facility] Number:[id number] Patient Name: Angie Mosquera Service: [...] questions answered to patient's satisfaction. Please page [phone] for questions. 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 [id number] Pamela Leonard PharmBrittonDBritton, R.Ph. - 01/01/2022 10:14 [...] on post-operative opioids Pamela Crawford PharmAlejandrina, R.Ph. [phone] Jose Guadalupe Washington M.D. - 01/01/2022 8:31 AM CST Infectious Diseases Orthopedic Surgery [facility] Consulting Service Progress Note SUBJECTIVE -No acute [...] Date/Time Bacteria / Camelia Culture, Blood #2 [[id number]] Collected: 12/31/21 1604 Lab Status: In process Specimen: Blood, Peripheral Draw Updated: 12/31/211650 Narrative: Received Bactec aerobic and Bactec anaerobic bottles Specimen Information: Specimen ID: [id number] Specimen Source: Blood, Peripheral Draw Specimen Comment: Specimen Source Site: Blood Specimen Collection Start Date: 12/31/2021 4:05 PM Specimen Received Date: 12/31/2021 4:51 PM Specimen ID: [id number] Specimen Source: Blood, Peripheral Draw Specimen Comment: Specimen Source Site: Blood Specimen Collection Start Date: 12/31/2021 4:05 PM Specimen Received Date: 12/31/2021 4:51 PM Specimen ID: [id number] Specimen Source: Blood, Peripheral Draw Specimen Comment: Specimen Source Site: Blood Specimen Collection Start Date: 12/31/2021 4:04 PM Specimen Received Date: 12/31/2021 4:51 PM Bacteria / Camelia Culture, Blood #1 [[id number]] Collected: 12/31/21 1552 Lab Status: In process Specimen: Blood, Peripheral Draw Updated: 12/31/21 1651 Narrative: Received Bactec aerobic and Bactec anaerobic bottles Specimen Information: Specimen ID: [id number] Specimen Source: Blood, Peripheral Draw Specimen Comment: Specimen Source Site: Blood Specimen Collection Start Date: 12/31/2021 3:52 PM Specimen Received Date: 12/31/2021 4:50 PM Specimen ID: [id number] Specimen Source: Blood, Peripheral Draw Specimen Comment: Specimen Source Site: Blood Specimen Collection Start Date: 12/31/2021 3:53 PM Specimen Received Date: 12/31/2021 4:50 PM Specimen ID: [id number] Specimen Source: Blood, Peripheral Draw Specimen Comment: Specimen Source Site: Blood Specimen Collection Start Date: 12/31/2021 3:53 PM Specimen Received Date: 12/31/2021 4:50 PM Bacteria Cult, Aerobe / Anaerobe+Susc [[id number]] Collected: 12/30/21 1411 Lab Status: Preliminary result Specimen: Shoulder, Left Updated: 12/31/21 1601 Bacteria Cult, Aerobe/Anaerobe+Susc No growth to date. Narrative: Bacterial Culture: Placed in Bactec aerobic and Bactec anaerobic bottles Bacteria Cult, Aerobe / Anaerobe+Susc [[id number]] Collected: 12/30/21 1405 Lab Status: Preliminary result Specimen: Synovial Fluid, Left Shoulder Updated: 12/31/21 1601 Bacteria Cult, Aerobe/Anaerobe+Susc No growth to date. Narrative: Bacterial Culture: Placed in Bactec aerobic and Bactec anaerobic bottles Bacteria Cult, Aerobe / Anaerobe+Susc [[id number]] Collected: 12/30/21 1404 Lab Status: Preliminary result Specimen: Shoulder, Left Updated: 12/31/21 1601 Bacteria Cult, Aerobe/Anaerobe+Susc No growth to date. Narrative: Bacterial Culture: Placed in Bactec aerobic and Bactec anaerobic bottles Bacteria Cult, Aerobe / Anaerobe+Susc [[id number]] Collected: 12/30/21 1403 Lab Status: Preliminary result Specimen: Shoulder, Left Updated: 12/31/21 1601 Bacteria Cult, Aerobe/Anaerobe+Susc No growth to date. Narrative: Bacterial Culture: Placed in Bactec aerobic and Bactec anaerobic bottles Bacteria Cult, Aerobe / Anaerobe+Susc [[id number]] Collected: 12/30/21 1403 Lab Status: Preliminary result Specimen: Shoulder, Left Updated: 12/31/21 1601 Bacteria Cult, Aerobe/Anaerobe+Susc No growth to date. Narrative: Bacterial Culture: Placed in Bactec aerobic and Bactec anaerobic bottles SARS Coronavirus 2, Molecular Detection, PCR, Varies Asymptomatic [[id number]] Collected: 12/29/21 1111 Lab Status: Final result [...] ----ADDITIONAL INFORMATION---- This RT-PCR test using the PrecisionDemand SARS-CoV-2 Assay ( [employer]) performed on the PrecisionDemand Two Module System has received Emergency Use Authorization (EUA) by the U.S. Food and Drug Administration, and is modified from the milk of lime slaker's instructions with a bridging study. Performance characteristics were verified by [facility] in a manner consistent with CLIA requirements. Visit the CDC website: https://www.cdc.gov/coronavirus/ for the most recent guidelines on Coronavirus testing. 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 Primary service to follow labs while patient is hospitalized. [facility] pharmacist to adjust dosing after dismissal 4. [...] of therapy. Treatment plan reviewed with Britton Mosquera, who expressed understanding. All questions answered to patient's satisfaction.? This case was discussed with Dr. Salvador. We will sign off at this time. Please page Ortho C-ID service pager at [phone] with any questions. ?? Jose Guadalupe Nixon [...] - Date/Time Bacteria Cult, Aerobe / Anaerobe+Susc [[id number]] Collected: 12/30/21 1411 Lab Status: In process Specimen: Shoulder, Left Updated: 12/30/21 1540 Narrative: Bacterial Culture: Placed in Bactec aerobic and Bactec anaerobic bottles Bacteria Cult, Aerobe / Anaerobe+Susc [[id number]] Collected: 12/30/21 1405 Lab Status: In process Specimen: Synovial Fluid, Left Shoulder Updated: 12/30/21 1519 Narrative: Bacterial Culture: Placed in Bactec aerobic and Bactec anaerobic bottles Bacteria Cult, Aerobe / Anaerobe+Susc [[id number]] Collected: 12/30/21 1404 Lab Status: In process Specimen: Shoulder, Left Updated: 12/30/21 1536 Narrative: Bacterial Culture: Placed in Bactec aerobic and Bactec anaerobic bottles Bacteria Cult, Aerobe / Anaerobe+Susc [[id number]] Collected: 12/30/21 1403 Lab Status: In process Specimen: Shoulder, Left Updated: 12/30/21 1533 Narrative: Bacterial Culture: Placed in Bactec aerobic and Bactec anaerobic bottles Bacteria Cult, Aerobe / Anaerobe+Susc [[id number]] Collected: 12/30/21 1403 Lab Status: In process Specimen: Shoulder, Left Updated: 12/30/21 1538 Narrative: Bacterial Culture: Placed in Bactec aerobic and Bactec anaerobic bottles SARS Coronavirus 2, Molecular Detection, PCR, Varies Asymptomatic [[id number]] Collected: 12/29/21 1111 Lab Status: Final result [...] ----ADDITIONAL INFORMATION---- This RT-PCR test using the PrecisionDemand SARS-CoV-2 Assay ( [employer].) performed on the PrecisionDemand Two Module System has received Emergency Use Authorization (EUA) by the U.S. Food and Drug Administration, and is modified from the milk of lime slaker's instructions with a bridging study. Performance characteristics were verified by [facility] in a manner consistent with CLIA requirements. Visit the CDC website: https://www.cdc.gov/coronavirus/ for the most recent guidelines on Coronavirus testing. Fact Sheet for Healthcare Providers: https://www.fda.gov/media/189817/download Fact Sheet for Patients: https://www.fda.gov/media/249722/download ASSESSMENT / PLAN IMPRESSION/REPORT/PLAN #1 Status post [...] am, please page Ortho House at [facility] [phone] KER/STOCKER Abrahan Rdz R.N. - 12/31/2021 7:34 AM [...] pain) Highest pain score last 24 hours: 08/07 Anticoagulation Therapy none Patient Care Plan:continue current management per plan/IPS protocol Overall Comments Patient to be discharged with onq pump later today or tomorrow KER/STOCKER Jey Matos D.O. - 12/31/2021 6:53 AM [...] - Date/Time Bacteria Cult, Aerobe / Anaerobe+Susc [[id number]] Collected: 12/30/21 1411 Lab Status: In process Specimen: Shoulder, Left Updated: 12/30/21 1540 Narrative: Bacterial Culture: Placed in Bactec aerobic and Bactec anaerobic bottles Bacteria Cult, Aerobe / Anaerobe+Susc [[id number]] Collected: 12/30/21 1405 Lab Status: In process Specimen: Synovial Fluid, Left Shoulder Updated: 12/30/21 1519 Narrative: Bacterial Culture: Placed in Bactec aerobic and Bactec anaerobic bottles Bacteria Cult, Aerobe / Anaerobe+Susc [[id number]] Collected: 12/30/21 1404 Lab Status: In process Specimen: Shoulder, Left Updated: 12/30/21 1536 Narrative: Bacterial Culture: Placed in Bactec aerobic and Bactec anaerobic bottles Bacteria Cult, Aerobe / Anaerobe+Susc [[id number]] Collected: 12/30/21 1403 Lab Status: In process Specimen: Shoulder, Left Updated: 12/30/21 1533 Narrative: Bacterial Culture: Placed in Bactec aerobic and Bactec anaerobic bottles Bacteria Cult, Aerobe / Anaerobe+Susc [[id number]] Collected: 12/30/21 1403 Lab Status: In process Specimen: Shoulder, Left Updated: 12/30/21 1538 Narrative: Bacterial Culture: Placed in Bactec aerobic and Bactec anaerobic bottles SARS Coronavirus 2, Molecular Detection, PCR, Varies Asymptomatic [[id number]] Collected: 12/29/21 1111 Lab Status: Final result [...] ----ADDITIONAL INFORMATION---- This RT-PCR test using the PrecisionDemand SARS-CoV-2 Assay ( [employer]) performed on the PrecisionDemand Two Module System has received Emergency Use Authorization (EUA) by the U.S. Food and Drug Administration, and is modified from the milk of lime slaker's instructions with a bridging study. Performance characteristics were verified by [facility] in a manner consistent with CLIA requirements. Visit the CDC website: https://www.cdc.gov/coronavirus/ for the most recent guidelines on Coronavirus testing. Fact Sheet for Healthcare Providers: https://www.fda.gov/media/654796/download Fact Sheet for Patients: https://www.fda.gov/media/759250/download ASSESSMENT / PLAN IMPRESSION/REPORT/PLAN #1 Status post [...] Jey Matos, DO Shoulder & Elbow Fellow [facility] Orthopaedic Surgery For any questions or concerns from 6 am until 6 pm, please page Jam service For urgent matters from 6 pm until 6 am, please page Ortho House at [facility] [phone] KER/STOCKER Abrahan Rdz R.N. - 12/30/2021 4:39 PM [...] Care Plan:continue current management per plan/IPS protocol KER/STOCKER Feli Viveros, Pharm.D., R.Ph. - 12/30/2021 11:33 AM CST [...] She is registered with the state of [place] for medical cannabis and she gets [place] meds [place]ary. She was told to leave her [...] Take 150 mg by mouth every morning. gmswxexouo-qwlidxbnwwtdx-apth (ESGIC) 50-325-40 mg per tablet Past Week [...] by mouth 2 (two) times a day. KER/STOCKER documented in this encounter Procedure Notes Soraida [...] to release the adhesive from the skin. 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 Anxiety Generalized Disorder ??? Chronic Pain [...] (HCC) ??? Nicotine Dependence Unspecified ??? Other Floorperson Current Drug Therapy ??? 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 Contact monitoring: PPE used during therapy: Therapist was wearing the following PPE throughout entire session: surgicalmask and eye protection Patient was wearing a mask during therapy session: yes, when out of room Outcome Measures AM-[facility] Inpatient Short Form: AM-[facility] Basic Mobility (V.2) How much [...] steps with a railing?: A Lot -[facility] Basic Mobility (V.2) Raw Score: 17 -[facility] Basic Mobility (V.2) Standardized Score: 39.67 Interpretation: Clinicians answer the -[facility] [...] (min): 36 min Ruth Gonzalez P.T., D.P.T. KER/STOCKER Thao You L.I.C.S.W., M.S.W. - 12/31/2021 2:04 PM CSTAssociated Order(s): IP CONSULT TO CARE MANAGEMENT; IP CONSULT TO CARE MANAGEMENT; IP CONSULT TO CARE MANAGEMENT Psychosocial Assessment SUBJECTIVE DEMOGRAPHIC INFORMATION Person(s) present during interview: Patient Primary care clinic and provider: [facility] Primary Language: Niuean Legal Information: Legal decision maker for self [...] / Household Status: Patient resides alone in [place], [place]. She lives in a two bedroom apartment. Patient has four adultchildren two of whom live in [place]. Patient son Rafal lives next door to [...] a two bedroom apartment on the [address] [facility] Care Facility Name (if applicable): NA [...] Behavior: Oriented Communication: Reads, writes and speaks Niuean It is anticipated that the patient will need assistance with .Dressing,bathing, meal prep, housekeeping, shopping ASSISTIVE DEVICES Patient has the following equipment: Eyeglasses, Dentures upper, Dentures lower, cane, walker Patient anticipates potentially needing the following additional equipment: None Transportation needs: Independent to drive, support from family and friends SERVICES REQUESTED Infusion therapy BOAT MECHANIC Formal and Informal Resources: Patient receives home health aid services three times per week and long-term visit one time every two weeks through [facility]. FINANCES/INSURANCE Primary insurance: MEDICARE A AND B Secondary insurance: MEDICA ADVANCE DIRECTIVES Advance Directive: Patient does not have advance directive, does not want information DISCHARGE PLANNING Patient is planning on returning home upon her discharge. She currently receives home health aid services and long-term through [facility]. Patient also has support from a son [...] good support group consisting of family, friends andledbetter health services through [facility]. INTERVENTIONS ?? Psychosocial assessment ?? Rapport building ?? Education on coping with chronic pain. PLAN ?? Social work will continue to follow for discharge planning and support. ?? Social work did speak with Pat at [facility] to confirm home health services. ?? Social work will work on infusion therapy referrals as well as home health/outpatient picc site care and labs. Anticipated barriers to the transition of care/plan: None Joe Ervin, M.S.W. 12/31/2021 KER/STOCKER Jose Guadalupe Nixon M.D. - 12/31/2021 7:31 AM CSTAssociated Order(s): IP CONSULT TO INFECTIOUS DISEASES Infectious Diseases Orthopedic Surgery [facility] Consulting Service Consult Note SUBJECTIVE REASON FOR [...] on OSH AST. She presented to [facility] (unclear if on antibiotics) for further evaluation given persistent L shoulder pain 08/2021 prompting aspiration (09/25/21) which revealed elevated TNC (76025) with 81% PMNs with cultures positive for1 [...] patient was subsequently admitted to [facility] for further management. Intraoperative cultures and synovial [...] - Date/Time Bacteria Cult, Aerobe / Anaerobe+Susc [[id number]] Collected: 12/30/21 1411 Lab Status: In process Specimen: Shoulder, Left Updated: 12/30/21 1540 Narrative: Bacterial Culture: Placed in Bactec aerobic and Bactec anaerobic bottles Bacteria Cult, Aerobe / Anaerobe+Susc [[id number]] Collected: 12/30/21 1405 Lab Status: In process Specimen: Synovial Fluid, Left Shoulder Updated: 12/30/21 1519 Narrative: Bacterial Culture: Placed in Bactec aerobic and Bactec anaerobic bottles Bacteria Cult, Aerobe / Anaerobe+Susc [[id number]] Collected: 12/30/21 1404 Lab Status: In process Specimen: Shoulder, Left Updated: 12/30/21 1536 Narrative: Bacterial Culture: Placed in Bactec aerobic and Bactec anaerobic bottles Bacteria Cult, Aerobe / Anaerobe+Susc [[id number]] Collected: 12/30/21 1403 Lab Status: In process Specimen: Shoulder, Left Updated: 12/30/21 1533 Narrative: Bacterial Culture: Placed in Bactec aerobic and Bactec anaerobic bottles Bacteria Cult, Aerobe / Anaerobe+Susc [[id number]] Collected: 12/30/21 1403 Lab Status: In process Specimen: Shoulder, Left Updated: 12/30/21 1538 Narrative: Bacterial Culture: Placed in Bactec aerobic and Bactec anaerobic bottles SARS Coronavirus 2, Molecular Detection, PCR, Varies Asymptomatic [[id number]] Collected: 12/29/21 1111 Lab Status: Final result [...] ----ADDITIONAL INFORMATION---- This RT-PCR test using the PrecisionDemand SARS-CoV-2 Assay ( [employer]) performed on the PrecisionDemand Two Module System has received Emergency Use Authorization (EUA) by the U.S. Food and Drug Administration, and is modified from the milk of lime slaker's instructions with a bridging study. Performance characteristics were verified by [facility] in a manner consistent with CLIA requirements. Visit the CDC website: https://www.cdc.gov/coronavirus/ for the most recent guidelines on Coronavirus testing. 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 Please page the [facility] service pager at [phone] with questions. Thank you for the consultation. Jose Guadalupe Nixon M.D. KER/STOCKER Associated attestation - Gucci Salvador M.D. - 12/31/2021 6:07 PM CHECKER/STOCKER DEMOGRAPHIC INFORMATION Clinic Number:[id number] Patient Name: Angie [...] Oxycodone. Oxycodone filled here at [facility] pharmacy. Patient going home with an interscalene block OnQ pump. Transportation provided by her son. KER/STOCKER Fanny Sifuentes R.N. - 12/31/2021 11:00 PM [...] Nasal mucous membranes remain intact Outcome: Progressing KER/STOCKER Ezequiel Hernandez R.N. - 12/30/2021 10:27 PM [...] staff assistance to bathroom. Navin Hernandez R.N. KER/STOCKER documented in this encounter OR Notes Op Note - Cyrus Polk M.D. - 12/30/2021 2:50 PM CST STAFF: Cyrus Polk M.D. RESIDENT: Dario Carrera M.D. PRE-OPERATIVE DIAGNOSIS Left infected reverse arthroplasty. POST-OPERATIVE DIAGNOSIS Left infected reverse arthroplasty. A engineer assistant was necessary for one or more [...] Cyrus Polk M.D. CT CT Job ID: [id number] KER/STOCKER documented in this encounter Miscellaneous Notes Hospital [...] and pain is controlled on oral medications. KER/STOCKER documented in this encounter Plan of Treatment Scheduled Referrals Name Type Priority Associated Diagnoses Order [facility] Outpatient Referral Routine Direct Infection Of Ordered: Health Referral Left Shoulder In 01/01/20 22 Infectious And Parasitic Diseases Classified Elsewhere (HCC) documented as of this encounter Procedures Procedure Name Priority Date/Time Associated Comments Diagnosis PLACE PERIPHERALLY Routine 01/01/2022 12:11 Resul ts for this INSERTED CENTRAL PM CHECKER/STOCKER procedure a re in CATHETER (PICC) the results section. REMOTE OXIMETRY Routine 12/31/2021 5:23 MONITORING CONT. PM CHECKER/STOCKER REMOTE OXIMETRY Routine 12/31/2021 5:23 MONITORING CONT. PM CHECKER/STOCKER BACTERIA / CAMELIA Routine 12/31/2021 4:04 Result s for this CULTURE, BLOOD PM CHECKER/STOCKER procedure are in the results section. BACTERIA / CAMELIA Routine 12/31/2021 3:52 Result s for this CULTURE, BLOOD PM CHECKER/STOCKER procedure are in the results section. ADULT OXYGEN THERAPY Routine 12/31/2021 8:01 AM CHECKER/STOCKER CBC WITH Routine 12/31/2021 4:25 Results for this DIFFERENTIAL, B AM CHECKER/STOCKER procedure ar e in the results section. BASIC METABOLIC Routine 12/31/2021 4:25 Results f or this PANEL, S/P AM CHECKER/STOCKER procedure are i n the results section. ADULT OXYGEN THERAPY Routine 12/30/2021 8:01 PM CHECKER/STOCKER ADULT OXYGEN THERAPY Routine 12/30/2021 5:12 PM CHECKER/STOCKER ADULT OXYGEN THERAPY Routine 12/30/2021 5:12 PM CHECKER/STOCKER ADULT OXYGEN THERAPY Routine 12/30/2021 3:46 PM CHECKER/STOCKER ADULT OXYGEN THERAPY Routine 12/30/2021 3:46 PM CHECKER/STOCKER DX SHOULDER LEFT 1 RAD - Timed (for 12/30/2021 3:41 Re sults for this VIEW specific PM CHECKER/STOCKER procedure are i n dates/times) the results section. SURGICAL PATHOLOGY, Routine 12/30/2021 2:15 Shoulder Joint Res ults for this FROZEN LAB PM CHECKER/STOCKER Disorder Left procedure are in the results section. BACTERIA CULT, Routine 12/30/2021 2:11 Results fo r this AEROBE/ANAEROBE+SUSC PM CHECKER/STOCKER procedu re are in the results section. BACTERIA CULT, Routine 12/30/2021 2:05 Results fo r this AEROBE/ANAEROBE+SUSC PM CHECKER/STOCKER procedu re are in the results section. BACTERIA CULT, Routine 12/30/2021 2:04 Results fo r this AEROBE/ANAEROBE+SUSC PM CHECKER/STOCKER procedu re are in the results section. BACTERIA CULT, Routine 12/30/2021 2:03 Results fo r this AEROBE/ANAEROBE+SUSC PM CHECKER/STOCKER procedu re are in the results section. BACTERIA CULT, Routine 12/30/2021 2:03 Results fo r this AEROBE/ANAEROBE+SUSC PM CHECKER/STOCKER procedu re are in the results section. ARTHROPLASTY 12/30/2021 12:34 Shoulder Joint RESECTION SHOULDER PM CHECKER/STOCKER Disorder Left documented in this encounter Results Place peripherally inserted central catheter (PICC) (01/01/2022 12:11 PM CHECKER/STOCKER) Narrative MMODAL - 01/01/2022 12:11 PM CHECKER/STOCKER Soraida Dick R.N. ? 01/01/2022 12:13 PM [...] to release the adhesive from the skin. [email or web address] Dario Carrera M.D. PROCEDURE/MINOR SURGICAL ORD ERABLES Performing Organization Address City/State/ZIP Code Phon e Number MMODAL MMODAL NA Bacteria / Camelia Culture, Blood #2 (12/31/2021 4:04 PM CHECKER/STOCKER) [facility] Method Time Signature Bacteria/Valerie No growth 01/05/2022 DTL da Culture, after 5 5:02 PM CHECKER/STOCKER Blood days of incubation. Specimen (Source) Anatomical Collection Method Collection Time Re ceived Time Location / / Volume Laterality Blood (Blood, 12/31/2021 4:04 12/31/2021 4:51 Peripheral Draw) PM CHECKER/STOCKER PM CHECKER/STOCKER Comment: Specimen Source Site: Blood Narrative [facility] - 01/05/2022 5:02 PM CHECKER/STOCKER Received Bactec aerobic and Bactec anaer obic bottles Dario Carrera M.D. LAB MICROBIOLOGY - GENERAL O PATERASARAH Performing Organization Address City/[facility]/ZIP [facility] Phon e Number [facility] - [address] [id number] [facility] [address] Bacteria / Camelia Culture, Blood #1 (12/31/2021 3:52 PM CHECKER/STOCKER) [facility] Method Time Signature Bacteria/Valerie No growth 01/05/2022 DTL da Culture, after 5 5:02 PM CHECKER/STOCKER Blood days of incubation. Specimen (Source) Anatomical Collection Method Collection Time Re ceived Time Location / / Volume Laterality Blood (Blood, 12/31/2021 3:52 12/31/2021 4:50 Peripheral Draw) PM CHECKER/STOCKER PM CHECKER/STOCKER Comment: Specimen Source Site: Blood Narrative [facility] - 01/05/2022 5:02 PM CHECKER/STOCKER Received Bactec aerobic and Bactec anaer obic bottles Dario Carrera M.D. LAB MICROBIOLOGY - GENERAL O PATERABLES Performing Organization Address [facility] Phon e Number [facility] - [address] [place], [place] [id number] [place] [address] (ABNORMAL) CBC with Differential, Blood (12/31/2021 4:25 AM CHECKER/STOCKER) [facility] Method Time Signature Hemoglobin 8.9 (L) 11.6 - 12/31/2021 DTL 15.0 g/dL 5:15 AM CHECKER/STOCKER Hematocrit 27.3 (L) 35.5 - 12/31/2021 DTL 44.9 % 5:15 AM CHECKER/STOCKER Erythrocytes 3.26 (L) 3.92 - 12/31/2021 DTL 5.13 5:15 AM CHECKER/STOCKER x10(12)/L MCV 83.7 78.2 - 12/31/2021 DTL 97.9 fL 5:15 AM CHECKER/STOCKER RBC Distrib Width 19.6 (H) 12.2 - 12/31/2021 DTL 16.1 % 5:15 AM CHECKER/STOCKER Platelet Count 274 157 - 371 12/31/2021 DTL x10(9)/L 5:15 AM CHECKER/STOCKER Leukocytes 6.6 3.4 - 9.6 12/31/2021 DTL x10(9)/L 5:15 AM CHECKER/STOCKER Neutrophils 4.91 1.56 - 12/31/2021 DTL 6.45 5:15 AM CHECKER/STOCKER x10(9)/L Lymphocytes 1.10 0.95 - 12/31/2021 DTL 3.07 5:15 AM CHECKER/STOCKER x10(9)/L Monocytes 0.61 0.26 - 12/31/2021 DTL 0.81 5:15 AM CHECKER/STOCKER x10(9)/L Eosinophils <0.03 0.03 - 12/31/2021 DTL 0.48 5:15 AM CHECKER/STOCKER x10(9)/L Basophils <0.03 0.01 - 12/31/2021 DTL 0.08 5:15 AM CHECKER/STOCKER x10(9)/L Specimen Anatomical Collection Method Collection Time Receive d Time (Source) Location / / Volume Laterality Blood (Blood, 12/31/2021 4:25 AM 12/31/19 5:04 Venous) CHECKER/STOCKER AM CHECKER/STOCKER Dario Carrera M.D. LAB BLOOD ADD-ON Performing Organization Address City/State/ZIP Code Phon e Number [facility] - [address] [place] [address] [facility] [place] [address] [facility] 200 [facility] (ABNORMAL) Basic Metabolic Panel (12/31/2021 4:25 AM CHECKER/STOCKER) P athologist Signature Potassium, S 4.4 3.6 - 5.2 12/31/2021 DTL mmol/L 5:35 AM CHECKER/STOCKER Sodium, S 134 (L) 135 - 145 12/31/2021 DTL mmol/L 5:35 AM CHECKER/STOCKER Chloride, S 103 98 - 107 12/31/2021 DTL mmol/L 5:35 AM CHECKER/STOCKER Bicarbonate, S 22 22 - 29 12/31/2021 DTL mmol/L 5:35 AM CHECKER/STOCKER Anion Gap 9 7 - 15 12/31/2021 DTL 5:35 AM CHECKER/STOCKER BUN (Blood Urea 21 6 - 21 12/31/2021 DTL Nitrogen), S mg/dL 5:35 AM CHECKER/STOCKER Creatinine 0.74 0.59 - 12/31/2021 DTL 1.04 mg/dL 5:35 AM CHECKER/STOCKER eGFR-Non 90 >=60 12/31/2021 DTL Black/ mL/min/BSA 5:35 AM CHECKER/STOCKER Mongolian Comment: ----ADDITIONAL INFORMATION---- Estimated GFR calculated using the 2009 CKD_EPI creatinine equation. eGFR-Black/ >90 >=60 mL/min/BSA 2021 5:35 AM CHECKER/STOCKER DTL Comment: ----ADDITIONAL INFORMATION---- Estimated GFR calculated using the 2009 CKD_EPI creatinine equation. Calcium, Total, S 8.7 8.6 - 10.0 mg/dL 12/31/2021 5:35 AM CHECKER/STOCKER DTL Glucose, S 138 70 - 140 mg/dL 12/31/2021 5:35 AM CHECKER/STOCKER D TL Specimen Anatomical Collection Method Collection Time Receive d Time (Source) Location / / Volume Laterality Blood (Blood, 12/31/2021 4:25 AM 12/31/19 5:18 Venous) CHECKER/STOCKER AM CHECKER/STOCKER Dario Carrera M.D. LAB BLOOD ADD-ON Performing Organization Address City/State/[facility] Code Phon e Number [facility] - [address] [place], [place] [address] [facility] [place] [address] [facility] [address] DX Shoulder Left 1 View (12/30/2021 3:41 PM CHECKER/STOCKER) Anatomical Region Laterality Modality Upper Extremity, Shoulder, Musculoskeletal RST LOS, Left Computed Radiography Musculoskeletal ARZ LOS, Muskuloskeletal FLA LOS Specimen (Source) Anatomical Collection Method Collection Time Re ceived Time Location / / Volume Laterality 12/30/2021 3:54 PM CHECKER/STOCKER Impressions 12/30/2021 3:59 PM CHECKER/STOCKER Postoperative changes of a left shoulder arthroplasty resection and placement of an antibiotic spacer. Negat lalo for postoperative purposes. Narrative 12/30/2021 3:59 PM CHECKER/STOCKER EXAM: ??DX SHOULDER LEFT 1 VIEW Procedure Note Timothy Resendiz M.D. - 12/30/2021Forma tting of this note might be different from the original. EXAM: DX SHOULDER LEFT 1 VIEW IMPRESSION: Postoperative changes of a left shoulder arthroplasty resection and placement of an antibiotic spacer. Negat lalo for postoperative purposes. Dario Carrera M.D. IMG DIAGNOSTIC IMAGING [facility] Surgical Pathology, Frozen Lab (12/30/2021 2:15 PM CHECKER/STOCKER) Component Value Ref Test Analysis Performed At [facility] Range Method Time Signature 01/01/2022 METH 8:22 AM CHECKER/STOCKER Participated in Kelly Howard, 01/01/2022 METH the D.O.-Pathology 8:22 AM CHECKER/STOCKER Interpretation Resident Report Solomon Marcum M.D. 01/01/2022 METH electronically 8:22 AM CHECKER/STOCKER signed by I verify that I have examined all relevant slides/materials for the specimen(s) and rendered or confirmed the diagnosis. Frozen A. ??Synovium, left shoulder, excision: ??Synovial tissue 01/01/2022 METH Intraoperative with 8:22 AM CHECKER/STOCKER Report acute inflammation (>5 neutrophils/high power field). Signed by Solomon Marcum M.D. 12/31/2021 8:17 AM Gross Description A. ??Received fresh labeled left shoulder is a 1.4 x 0.9 x 01/01/2022 METH 0.4 cm aggregate of red and campbell fibrous tissue, which is 8:22 AM CHECKER/STOCKER soft. ??All submitted for frozen and permanent sections. Grossed by Nikki Gallardo. Block Summary A Left shoulder 01/01/2022 METH A1 Left shoulder-frozen 8:22 AM CHECKER/STOCKER Interpretation FINAL DIAGNOSIS 01/01/2022 METH 8:22 AM CHECKER/STOCKER A. ??Synovium, left shoulder, excision: ??Synovial tissue with acute inflammation (>5 neutrophils/high power field). Specimen (Source) Anatomical Collection Method Collection Time Re ceived Time Location / / Volume Laterality Tissue (Shoulder, 12/30/2021 2:15 PM Left) CHECKER/STOCKER Narrative This result has an attachment that is no t available. Cyrus Polk M.D. LAB SURG PATH ORDERABLES Performing Organization Address City/State/ZIP Code Phon e Number [facility] - [address] [place], [place] [address] [facility] [place] [address] [facility] [address] Bacteria Cult, Aerobe / Anaerobe+Susc (12/30/2021 2:11 PM CHECKER/STOCKER) [facility] Method Time Signature Bacteria Cult, No growth 01/13/2022 DTL Aerobe/Anaerob after 14 4:02 PM CHECKER/STOCKER e+Susc days of incubation. Specimen Anatomical Collection Method Collection Time Receive d Time (Source) Location / / Volume Laterality Shoulder, Left 12/30/2021 2:11 PM 022 3:38 CHECKER/STOCKER PM CHECKER/STOCKER Comment: Specimen Source Site: Tissue #4 Narrative [facility] - 01/13/2022 4:02 PM CHECKER/STOCKER Bacterial Culture: Placed in Bactec aero bic and Bactec anaerobic bottles Cyrus Polk M.D. LAB MICROBIOLOGY - GENERAL O RDERABLES Performing Organization Address City/State/ZIP Code Phon e Number [facility] - [facility] [place] [address] [place], [place] [address] [facility] [place] [address] [facility] [address] (ABNORMAL) Bacteria Cult, Aerobe / Anaerobe+Susc (12/30/2021 2:05 PM CHECKER/STOCKER) Component Value Ref Test Analysis Performed At [facility] Method Time Signature Bacteria STAPHYLOCOCCUS EPIDERMIDIS 01/11/2022 DT L Cult, Growth after 4 days 7:55 AM CHECKER/STOCKER Aerobe/Anaero (A) be+Susc Comment: Semi-Urgent Result. Semi-Urgent This is a semi-urgent result [facility] - ([facility]) [facility] Specimen Anatomical Collection Method Collection Time Receive d Time (Source) Location / / Volume Laterality Synovial Fluid, 12/30/2021 2:05 PM 2021 3:17 Left Shoulder CHECKER/STOCKER PM CHECKER/STOCKER Comment: Specimen Source Site: Fluid Narrative [facility] - 01/11/2022 7:55 AM CHECKER/STOCKER Bacterial Culture: Placed in Bactec aero bic [...] - GENERAL O MARY Performing Organization Address City/[facility] Phon e Number [facility] - [address] [place] [address] Bacteria Cult, Aerobe / Anaerobe+Susc (12/30/2021 2:04 PM CHECKER/STOCKER) [facility] Signature Bacteria Cult, No growth 01/13/2022 [facility] Aerobe/Anaerob after 14 4:02 PM CHECKER/STOCKER e+Susc days of incubation. Specimen Anatomical Collection Method Collection Time Receive d Time (Source) Location / / Volume Laterality Shoulder, Left 12/30/2021 2:04 PM 022 3:34 CHECKER/STOCKER PM CHECKER/STOCKER Comment: Specimen Source Site: Tissue #3 Narrative [facility] - 01/13/2022 4:02 PM CHECKER/STOCKER Bacterial Culture: Placed in Bactec aero bic and Bactec anaerobic bottles Cyrus Polk M.D. LAB MICROBIOLOGY - GENERAL O MARY Performing Organization Address City/[facility] Phon e Number [facility] - [address] Bacteria Cult, Aerobe / Anaerobe+Susc (12/30/2021 2:03 PM CHECKER/STOCKER) Patholo gist Method Time Signature Bacteria Cult, No growth 01/13/2022 DTL Aerobe/Anaerob after 14 4:02 PM CHECKER/STOCKER e+Susc days of incubation. Specimen Anatomical Collection Method Collection Time Receive d Time (Source) Location / / Volume Laterality Shoulder, Left 12/30/2021 2:03 PM 022 3:37 CHECKER/STOCKER PM CHECKER/STOCKER Comment: Specimen Source Site: Tissue #2 Narrative [facility] - 01/13/2022 4:02 PM CHECKER/STOCKER Bacterial Culture: Placed in Bactec aero bic and Bactec anaerobic bottles Cyrus Polk M.D. LAB MICROBIOLOGY - GENERAL O MARY Performing Organization Address City/[facility] Phon e Number [facility] - [address] [address] First [facility] Bacteria Cult, Aerobe / Anaerobe+Susc (12/30/2021 2:03 PM CHECKER/STOCKER) [facility] gist Method Time Signature Bacteria Cult, No growth 01/13/2022 DTL Aerobe/Anaerob after 14 4:02 PM CHECKER/STOCKER e+Susc days of incubation. Specimen Anatomical Collection Method Collection Time Receive d Time (Source) Location / / Volume Laterality Shoulder, Left 12/30/2021 2:03 PM 022 3:31 CHECKER/STOCKER PM CHECKER/STOCKER Comment: Specimen Source Site: Tissue #1 [facility] - 01/13/2022 4:02 PM CHECKER/STOCKER Bacterial Culture: Placed in Bactec aero bic and Bactec anaerobic bottles Cyrus Polk M.D. 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 Left Pain [...] tablet 1,000 mg Given 01/01/2022 11:36 AM CHECKER/STOCKER 1,00 0 mg (TYLENOL) 1,000 mg, oral, Every 6 hours, First dose on Tue12/30/21 at 1800 Given 01/01/2022 6:28 AM CHECKER/STOCKER 1,000 mg Given 12/31/2021 11:51 PM CHECKER/STOCKER 1,000 mg albuterol nebulizer solution 2.5 mg Given 12/31/2021 4:44 PM CHECKER/STOCKER 2.5 mg 2.5 mg, nebulization, Every 6 hours PRN, wheezing, Starting on Tue12/30/21 at 1711, Albuterol nebs were interchanged for albuterol/levalbuterol MDI (same frequency) atorvastatin tablet 80 mg (LIPITOR) Given 12/31/2021 8:57 PM CHECKER/STOCKER 80 mg 80 mg, oral, Daily at bedtime, First dose on Tue12/30/21 at 2100 Given 12/30/2021 9:55 PM CHECKER/STOCKER 80 mg benzonatate capsule 100 mg (TESSALON PER LES) Given 01/01/2022 3:10 AM CHECKER/STOCKER 100 mg 100 mg, oral, 3 times daily PRN, cough, Starting on Tue12/31/21 at 1702, Swallow whole. Do NOT crush, chew or open capsule. Given 12/31/2021 5:39 PM CHECKER/STOCKER 100 mg bupivacaine PF 0.2 % 550 mL in NaCl New Bag 01/01/2022 3:15 PM CHECKER/STOCKER 6 mL/hr 6 mL/hr 0.9% On-Q pain pump (CB004) 6 mL/hr, nerve catheter, Continuous, Starting on Tue01/01/22 at 1500, PACU & Post-Op, Location: Nerve Catheter Location, Nerve Catheter Location: Interscalene, Device: On-Q Pump bupivacaine PF 0.2 % in Rate/Dose Verify 01/01/2022 1:00 AM CHECKER/STOCKER 6 mL/ hr 6 mL/hr NaCl 0.9% 341 mL infusion (MARCAINE) 6 mL/hr, nerve catheter, Continuous, Starting on Tue12/30/21 at 1600, PACU & Post-Op, Nerve Catheter Location: Interscalene, Device: Hospital Infusion Pump Rate/Dose Verify 12/31/2021 12:11 AM CHECKER/STOCKER 6 mL/hr 6 mL/hr New Bag 12/30/2021 3:49 PM CHECKER/STOCKER 6 mL/hr 6 mL/hr buPROPion XL 24 hr tablet 150 mg (WELLBUTRIN Given 02/2022 8:35 AM CHECKER/STOCKER 150 mg XL) 150 mg, oral, Every morning, First dose on Tue12/31/21 at 0900, Swallow whole. Do NOT crush, chew, or split tablet. Given 12/31/2021 8:16 AM CHECKER/STOCKER 150 mg calcium carbonate chewable tablet Given 12/31/2021 11: 46 PM CHECKER/STOCKER 400 mg of calcium 400 mg of calcium (TUMS) 400 mg of calcium, oral, Every 2 hour PRN, indigestion, Starting on Tue12/30/21 at 1711, Doses listed are in mg of elemental calcium. Take with food. 500 mg calcium carbonate contains 200 mg of elemental calcium. Given 12/31/2021 9:15 PM CHECKER/STOCKER 400 mg of calcium carboxymethylcellulose 0.5 % ophthalmic Given 01/01/2022 1:15 AM CHECKER/STOCKER 2 drops solution 2 drop (REFRESH PLUS) 2 drop, both eyes, 4 times daily PRN, dry eyes, Starting on Tue12/30/21 at 1711 Given 12/31/2021 12:31 PM CHECKER/STOCKER 2 drops Given 12/31/2021 12:23 AM CHECKER/STOCKER 2 drops cefTRIAXone in dextrose (iso-osm) IVPB New Bag 01/01/2022 2:38 PM CHECKER/STOCKER 2 g 200 mL/hr 2 g (ROCEPHIN) 2 g, intravenous, at 200 mL/hr, Administer over 15 Minutes, Daily before lunch, First dose on Tue01/01/22 at 1345, Drug Monitoring Program: Pharmacist to adjust medication dosing based on indication and drug clearance factors., Indications: Bone and/or joint infection cetirizine tablet 10 mg (ZyrTEC) Given 01/01/2022 8:35 AM CHECKER/STOCKER 10 mg 10 mg, oral, 2 times daily, First dose on Tue12/30/21 at 2100, Drug Monitoring Program: Pharmacist to adjust medication dosing based on indication and drug clearance factors. Given 12/31/2021 8:57 PM CHECKER/STOCKER 10 mg Given 12/31/2021 8:16 AM CHECKER/STOCKER 10 mg cholecalciferol (vitamin D3) tablet 25 m cg Given 01/01/2022 8:35 AM CHECKER/STOCKER 25 mcg 25 mcg, oral, Daily, First dose on Tue12/31/21 at 0900, cholecalciferol (vitamin D3) orderable was interchanged for cholecalciferol (vitamin D3) tablet/capsule Given 12/31/2021 8:16 AM CHECKER/STOCKER 25 mcg D5W infusion 10-250 mL/hr, intravenous, [...] 5 mg (VALIUM) Given 12/31/2021 12:31 PM CHECKER/STOCKER 5 mg 5 mg, oral, 4 times daily PRN, muscle spasms, Starting on Tue12/30/21 at 2243 Given 12/31/2021 1:59 AM CHECKER/STOCKER 5 mg diphenhydrAMINE capsule 25 mg (BENADRYL) 25 mg, oral, Daily PRN, itching, Starting on Tue 2 at 0854 diphenhydrAMINE capsule 75 mg (BENADRYL) Given 01/01/2022 8:49 AM CHECKER/STOCKER 75 mg 75 mg, oral, Bedtime PRN, sleep, Starting on Tue12/30/21 at 1715 FLUoxetine capsule 80 mg (PROzac) Given 01/01/2022 8:34 AM CHECKER/STOCKER 80 mg 80 mg, oral, Daily, First dose on Tue12/31/21 at 0900, FLUoxetine orderable was interchanged for FLUoxetine tablet/capsule Given 12/31/2021 8:16 AM CHECKER/STOCKER 80 mg fluticasone furoate 100 mcg/actuation Given 01/01/2022 8:[address] 2 puffs inhaler 2 puff (ARNUITY ELLIPTA) 2 puff, inhalation, 2 times daily, First dose on Tue12/30/21 at 2100, fluticasone furoate 100 mcg was interchanged for fluticasone MDI 110 mcg Given 12/31/2021 9:04 PM CHECKER/STOCKER 2 puffs Given 12/31/2021 8:17 AM CHECKER/STOCKER 2 puffs gentamicin powder (for bone Given 12/30/2021 2:40 PM CHECKER/STOCKER 4 vials Left Shoulder cement) As needed, Starting on Tue12/30/21 at 1440, Intra-Op heparin PF flush syringe 50-150 Units 50-150 Units, intravenous, Once as neede d, line care, 50 units (5 mL) to each lumen of non-valved catheters only, Starting on Tue01/01/22 a t 0817, For 1 dose HYDROmorphone (PF) injection 0.4 mg Given 01/01/2022 4:56 AM CHECKER/STOCKER 0.4 mg (DILAUDID) 0.4 mg, intravenous, Every 2 hour PRN, severe pain or score 7-10 of 10, Starting on Tue12/30/21 at 1711, For 5 doses, May administer if pain is greater than 7 after scheduled and PRN regimen exhausted. If pain remains greater than 7, notify primary service. Given 12/31/2021 11:35 AM CHECKER/STOCKER 0.4 mg Given 12/31/2021 4:14 AM CHECKER/STOCKER 0.4 mg ipratropium-albuteroL 0.5-2.5 mg/3 mL nebulizer Given 01/01/2022 3:15 AM CHECKER/STOCKER 3 mL solution 3 mL (DUONEB) 3 mL, nebulization, 4 times daily PRN, shortness of breath, wheezing, Starting on Tue12/30/21 at 1711 lactated ringers Rate/Dose Change 01/01/2022 1:00 AM CHECKER/STOCKER 20 mL/hr 20 mL/hr 75 mL/hr, intravenous, Continuous, Starting on Tue12/30/21 at 1715, Until patient has 500cc po intake New Bag 12/31/2021 11:46 PM CHECKER/STOCKER 75 mL/hr 75 mL/hr Rate/Dose Change 12/31/2021 3:55 AM CHECKER/STOCKER 20 mL/hr 20 mL/hr lactated ringers Continued from OR 12/30/2021 4:00 PM CHECKER/STOCKER 75 mL/hr 75 mL/hr 75 mL/hr, intravenous, Continuous, Starting on Tue12/30/21 at 1600, PACU & Post-Op lamoTRIgine tablet 200 mg (LaMICtaL) Given 01/01/2022 8:34 AM CHECKER/STOCKER 200 mg 200 mg, oral, 2 times daily, First dose on Tue12/30/21 at 2100 Given 12/31/2021 8:56 PM CHECKER/STOCKER 200 mg Given 12/31/2021 8:16 AM CHECKER/STOCKER 200 mg methylene blue 0.5 % (5 mg/mL) Given 12/30/2021 2:39 PM CHECKER/STOCKER 2 mL Left Shoulder injection As needed, [...] 10 mg (ROXICODONE) Given 01/01/2022 2:38 PM CHECKER/STOCKER 10 mg 10 mg, oral, Every 3 hours PRN, severe pain or score 7-10 of 10, Starting on Tue12/31/21 at 1745 Given 01/01/2022 11:35 AM CHECKER/STOCKER 10 mg Given 01/01/2022 7:07 AM CHECKER/STOCKER 10 mg oxyCODONE IR tablet 5 mg (ROXICODONE) 5 mg, oral, Every 3 hours PRN, moderate pain or score 4-6 of 10, Starting on Tue12/31/21 at 1745, If patient is >75 consider changing to 2.5-5mg scale pantoprazole DR tablet 40 mg (PROTONIX) Given 01/01/2022 3:46 PM CHECKER/STOCKER 40 mg 40 mg, oral, 2 times daily before breakfast and dinner, First dose on Tue12/31/21 at 0700, pantoprazole 40 mg oral twice daily was interchanged for esomeprazole 20 or 40 mg oral twice daily Swallow whole. Do NOT crush, chew, or split tablet. Given 01/01/2022 6:29 AM CHECKER/STOCKER 40 mg Given 12/31/2021 4:47 PM CHECKER/STOCKER 40 mg pregabalin capsule 600 mg (LYRICA) Given 01/01/2022 8:34 AM CHECKER/STOCKER 600 mg 600 mg, oral, 2 times daily, First dose on Tue12/30/21 at 2100 Given 12/31/2021 8:56 PM CHECKER/STOCKER 600 mg Given 12/31/2021 8:15 AM CHECKER/STOCKER 600 mg QUEtiapine tablet 50 mg (SEROquel) Given 12/31/2021 8:57 PM CHECKER/STOCKER 50 mg 50 mg, oral, Daily at bedtime, First dose on Tue12/30/21 at 2100 Given 12/30/2021 9:55 PM CHECKER/STOCKER 50 mg sennosides-docusate sodium 8.6-50 mg per Given 01/01/2022 8:35 A M CHECKER/STOCKER 1 tablet tablet 1 tablet (SENOKOT-S) 1 tablet, oral, 2 times daily, First dose on Tue12/30/21 at 2100, Do not give if patient has diarrhea. Given 12/31/2021 8:57 PM CHECKER/STOCKER 1 tablet Given 12/31/2021 8:16 AM CHECKER/STOCKER 1 tablet sodium chloride 0.9 % injection [...] injection 3 mL Given 12/31/2021 8:18 AM CHECKER/STOCKER 3 mL 3 mL, intravenous, Every 12 hours scheduled, First dose on Tue12/30/21 at 2100, PACU & Post-Op, Peripheral Intravenous Catheter and Rapid Infusion Catheter, when no infusion to maintain patency Given 12/30/2021 9:53 PM CHECKER/STOCKER 3 mL vancomycin powder Given 12/30/2021 2:40 PM CHECKER/STOCKER 4 g Left Shoulder As needed, Starting on Tue12/30/21 at 1440, Intra-Op zonisamide capsule 300 mg (ZONEGRAN) Given 01/01/2022 8:35 AM CHECKER/STOCKER 300 mg 300 mg, oral, 2 times daily, First dose on Tue12/30/21 at 2100, Swallow whole. Do NOT crush, chew or open capsule. Given 12/31/2021 8:57 PM CHECKER/STOCKER 300 mg Given 12/31/2021 8:16 AM CHECKER/STOCKER 300 mg documented in this encounter Active and Recently Administered Medications Times are shown in CHECKER/STOCKER. Scheduled Medication Order 12/30/2021 12/31/2021 01/01/2022 acetaminophen [...] Gonzalez R.N.)1738 (Given - Provider: Fanny Sifuentes RBetsy)2351 (Given - Provider: Leticia Pérez, R.N.) 0628 [...] (CANCE LED) 2153 (New Bag - Provider: Sharifa GarciaNBritton) 0636 (New Bag - Provider: Sharifa ConcepcionNBritton)1421 [...] 1419 (Given - Provider: Emre Rodriguez APRN, JACQUARD TWINE POLISHER OPERATOR) 2,000 mg (rounded from 1,747.5 mg = [...] infectio n cetirizine tablet 10 mg (ZyrTEC) 3 (Given - Provide r: Ezequiel Hernandez R.German.) 0816 (Given - Provider: Maic Gonzalez R.N.)2056 (Given - Provider: Fanny Sifuentes [...] Provider: Viktoriya Givens R.N.)1647 (Given - Provider: Sharifa KeenNBritton) 0629 (Given - Provider: Viktoriya Givens R.N.)1546 (Given - Provider: Sharifa KeenNBritton) 40 mg, oral, 2 times daily before breakf ast and dinner, First dose on Tue12/31/21 at 0700, pantoprazole 40 mg oral twice daily was interchanged for esomeprazole 20 or 40 mg oral twice daily Swallow whole. Do NOT crush, chew, or split tablet. pregabalin capsule 600 mg (LYRICA) 2155 (Given - Provi marquis: Ezequiel Hernandez RBrittonN.) 0815 (Given - Provider: Maci Gonzalez RBrittonN.)2055 (Given - Provider: Fanny Sifuentes RBrittonN.) 0834 (Given - Provider: Corrie fall RBrittonNBritton) 600 mg, oral, 2 times daily, First dose on Tue12/30/21 at 2100 QUEtiapine tablet 50 mg (SEROquel) 2155 (Given - Provi marquis: Ezequiel Hernandez RBrittonN.) 2056 (Given - Provider: Sharifa KeenNBritton) 50 mg, oral, Daily at bedtime, First dose on Tue12/30/21 at 2100 sennosides-docusate sodium 8.6-50 mg per tablet 1 tabl et (SENOKOT-S) 215 (Given - Provider: Ezequiel Hernandez R.N.) 0816 (Given - Provider: Maci Gonzalez R.N.)2056 (Given - Provider: Fanny Sifuentes R.N.) 0835 (Given - Provider: Corrie Toscano RBetsy) 1 tablet, oral, 2 times daily, First [...] 1446 (Given - Provider: Emre Rodriguez APRN, JACQUARD TWINE POLISHER OPERATOR)1550 (Anesthesia Volume Adjustment - Provider: Emre Rodriguez [...] R.N.) 0816 (Given - Provider: Maci Gonzalez RBrittonN.)7 (Given - Provider: Fanny Sifuentes RBrittonN.) 0835 (Given - Provider: Corrie fall R.NBritton) [...] 0100 (Rate/Dose Verify - Provider: Kem Givens RBetsy) 6 mL/hr, nerve catheter, Continuous, Sta [...] mg (TESSALON PERLSHAHZAD) 1739 (Given - Provider: Fanyn Sifuentes RBetsy) 0310 (Given - Provider: Viktoriya Givens R.N.) [...] 2 hour [place] N, indigestion, Starting on Tue12/30/21 at 1711, [...] over 3 days 1 patch (TRANSDERM S PHYSICAL DIRECTOR) (CANCELED) 1202 (Medication Applied - Provider: Manda [...] documented as of this encounter Care Teams Candy Roller Relationship Specialty Start Date End Date Elsewhere, Pcp PCP - General Family Medicine 12/25/21 documented as of this encounter
--- OUTSIDE RECORDS SUMMARY | 2022-09-20 14:10 | XMS_ITS | Encounter Summary ---
:1965 Author Organization [facility] Address [address] [place] [address] Care Team Providers Name Role Phone Unavailable Primary Care Provider Unavailable Reason for Referral MRI/CAT/PET Scan (Routine) - Authorized Specialty Diagnoses / Procedures Referred By Contact Refer red To Contact Radiology Diagnoses Stroke Cerebrovascular Accident Personal History Occlusion Vertebral Artery With lnfarction (HCC) Robert Diehl M.D. [facility] Procedures MR Neck Angiogram without and with IV Contrast [address] [place] [address] Referral ID Status Reason Start Date Expiration Date Visits V isits Requested Authorized [id number] Authorized 12/10/2021 12/10/2022 1 1 ER DIETARY SERVICE MANAGER Outpatient (Routine) - Authorized Specialty Diagnoses / Procedures Referred By Contact Refer red To Contact Diagnoses Aneurysm Cerebral Unruptured (HCC) Robert Diehl M.D. [facility] Procedures PM Device interrogation (clinic) [address] [place] [address] Referral ID Status Reason Start Date Expiration Date Visits V isits Requested Authorized [id number] Authorized 12/10/2021 12/10/2022 1 1 ER DIETARY SERVICE MANAGER MRI/CAT/PET Scan (Routine) - Authorized Specialty Diagnoses / Procedures Referred By Contact Refer red To Contact Radiology Diagnoses Aneurysm Cerebral Unruptured (HCC) Robert Diehl M.D. [facility] Procedures MR Brain Angiogram without IV Contrast [address] [place] [address] Referral ID Status Reason Start Date Expiration Date Visits V isits Requested Authorized [id number] Authorized 12/10/2021 12/10/2022 1 1 ER DIETARY SERVICE MANAGER Reason for Visit Reason Comments Michel Encounter Details Date Type Department Care Team Description 12/10/2021 Clinical Communication Department of Robert Die[facility] [place] [place] [address] [facility] [address] [place] [phone] Social History Tobacco Use Types Packs/Day Years [...] you attend denominational or Patient refused 2021 roman catholic services? [...] 2:58 PM CST Signed and thank you. ER DIETARY SERVICE MANAGER documented in this encounter Plan of Treatment Scheduled Orders Name Type Priority Associated Diagnoses Order S chedule MR Brain Angiogram Imaging RAD - Routine Aneurysm Cerebral Exp ected: without IV Contrast (most inpatients Unruptured ([facility]) 05/03/2022, and all Expires: outpatients) 03/10/2023 PM Device Procedures Routine Aneurysm Cerebral Expected: interrogation Unruptured ([facility]) 12/29/2021 , (clinic) Expires: 03/10/2023 MR Neck Angiogram Imaging RAD - Routine Stroke Cerebrovascular Expected: without and with IV (most inpatients Accident Personal 05/03/2022 Contrast and all History (Approximate), outpatients) Occlusion Vertebral Expires: Artery With lnfarction 03/[address] ([facility]) documented as of this encounter Visit Diagnoses Diagnosis Stroke Cerebrovascular Accident Personal History - Primary Aneurysm Cerebral Unruptured ([facility]) Occlusion Vertebral Artery With lnfarcti on ([facility]) documented in this encounter Additional Health Concerns Assessment Noted Time PHQ-9 Depression Total Score: 16 02/11/2021 12:00 AM C DT documented as of this encounter
--- OUTSIDE RECORDS SUMMARY | 2022-09-20 14:10 | XMS_ITS | Encounter Summary ---
:1965 Author Organization [facility] Address [address] [place] [address] Care Team Providers Name Role Phone Unavailable Primary Care Provider Unavailable Encounter Details Date Type Department Care Team Description 11/25/2021 Clinical Communication Department of Yesenia, Guillermo Alvarado, Neurologic Surgery in [place], [place] [address] [place] [address] [address] [place] [phone] Social History Tobacco Use Types Packs/Day Years [...] you attend shinto or Patient refused 2021 druze services? Do [...] be seen through ED, or local provider/neurology. T SCIENTIST documented in this encounter Plan of Treatment Not on filedocumented as of this encounter Visit Diagnoses Not on filedocumented in this encounter Additional Health Concerns Assessment Noted Time PHQ-9 Depression Total Score: 16 02/11/2021 12:00 AM C DT documented as of this encounter
--- OUTSIDE RECORDS SUMMARY | 2022-09-20 14:10 | XMS_ITS | Encounter Summary ---
:1965 Author Organization [facility] Address [address] [place] [address] Care Team Providers Name Role Phone Elsewhere, Pcp Primary Care Provider Unavailable Reason for Visit Reason Comments Pre-op Exam Outpatient (Routine) - Closed Specialty Diagnoses / Procedures Referred By Contact Refer red To Contact Orthopedic Surgery Diagnoses Preoperative Exam Painful Total Joint Arthroplasty Initial (HCC) Alfredo Herrera Rochest [facility] [address] [place] [phone] Referral ID Status Reason Start Date Expiration Date Visits Requ ested Visits Authorized [id number] Closed 10/13/2021 10/13/2022 1 1 Encounter Details Date Type Department Care Team Description 12/29/2021 Office Visit Department of Cyrus Polk Pain Shoulde r Left (Primary Dx); Orthopedic Surgery in Lilian Souza Preoperative Exam; [place], [place] [address] [place] [address] Painful Total Joint Arthroplasty Initial (HCC) [address] [place] [phone] Social History Tobacco Use Types Packs/Day Years [...] may involve the use of a medical terminologist made by a [employer] I or one of my partners have collaborated to design, develop, or improve orthopedic implants, instruments, or products. Both the [facility] and the individual surgeons involved receive royalty payments from the use of those specific devices at other institutions, but no royalties or any other payments are paid for the use of those devices with any [facility] patient. The clinical rationale for the use of those devices as well as the availability and applicability of alternative devices was reviewed. He understands that the final decision for the use of a specific medical terminologist often is made at the time of surgery. All of his questions were answered; he understands and agrees with my approach to device selection and wants to proceed. NILE CORRECTIONS OFFICER documented in this encounter Plan of Treatment Not on filedocumented as of this encounter Visit Diagnoses Diagnosis Pain Shoulder Left - Primary Preoperative Exam Painful Total Joint Arthroplasty Initial (HCC) documented in this encounter Additional Health Concerns Infection Onset Date Last Indicated Resolved Time COVID19 Pending 12/29/2021 12/29/2021 12/29/2021 4:20 PM JUVENILE CORRECTIONS OFFICER Assessment Noted Time PHQ-9 Depression Total Score: 16 02/11/2021 12:00 AM C DT documented as of this encounter Care Teams Corn Picker Relationship Specialty Start Date End Date Elsewhere, Pcp PCP - General Family Medicine 12/25/21 documented as of this encounter
--- OUTSIDE RECORDS SUMMARY | 2022-09-20 14:10 | XMS_ITS | Encounter Summary ---
:1965 Author Organization [facility] Address [address] [place] [address] Care Team Providers Name Role Phone Unavailable Primary Care Provider Unavailable Reason for Referral Outpatient (Routine) - Closed Specialty Diagnoses / Procedures Referred By Contact Refer red To Contact Anesthesiology Diagnoses Preoperative Exam Painful Total Joint Arthroplasty Initial ([facility]) Alfredo Herrera [facility] Lebron.Fernando-CBritton [address] [place] [address] Referral ID Status Reason Start Date Expiration Date Visits Requ ested Visits Authorized [id number] Closed 10/13/2021 10/13/2022 1 1 ING APPLICATOR Outpatient (Routine) - Closed Specialty Diagnoses / Procedures Referred By Contact Refer red To Contact Orthopedic Surgery Diagnoses Preoperative Exam Painful Total Joint Arthroplasty Initial ([facility]) Alfredo Herrera Rochest Margot Diana.Fernando-CBritton [address] [place] [address] Referral ID Status Reason Start Date Expiration Date Visits Requ ested Visits Authorized [id number] Closed 10/13/2021 10/13/2022 1 1 ING APPLICATOR Reason for Visit Reason Comments pre op orders L shldr Encounter Details Date Type Department Care Team Description 10/12/2021 Clinical Communication Department of Jam pre op orders Gisell Orthopedic Surgery Lilian Alex) in [place], [facility] [address] [place], [place] 200 [facility] [address] [place], [place] [phone] (Work) [phone] Social History Tobacco Use Types Packs/Day Years [...] you attend christianity or Patient refused 2021 roman catholic services? [...] and see me Surgery date: December 30 ING APPLICATOR documented in this encounter Plan of Treatment Scheduled Referrals Name Type Priority Associated Diagnoses Order S [facility] Orthopedic Surgery Outpatient Referral Routine Preoperat lalo Exam Expected: Pre Op (clinic) Painful Total Joint 12/29 Arthroplasty Initial (Approx imate), (HCC) Expires: 10/12/2024 Preoperative Outpatient Referral Routine Preoperative Exam Expected: Evaluation NESHA Painful Total Joint 2021 consult (clinic) Arthroplasty Initial (Ap proximate), (HCC) Expires: 10/12/2024 documented as of this encounter Results (ABNORMAL) Basic Metabolic Panel (12/29/2021 11:34 AM ROOFING APPLICATOR) P athologist Signature Potassium, S 4.7 3.6 - 5.2 12/29/2021 DTL mmol/L 12:38 PM ROOFING APPLICATOR Sodium, S 143 135 - 145 12/29/2021 DTL mmol/L 12:38 PM ROOFING APPLICATOR Chloride, S 108 (H) 98 - 107 12/29/2021 DTL mmol/L 12:38 PM ROOFING APPLICATOR Bicarbonate, S 24 22 - 29 12/29/2021 DTL mmol/L 12:38 PM ROOFING APPLICATOR Anion Gap 11 7 - 15 12/29/2021 DTL 12:38 PM ROOFING APPLICATOR BUN (Blood Urea 15 6 - 21 12/29/2021 DTL Nitrogen), S mg/dL 12:38 PM ROOFING APPLICATOR Creatinine 0.83 0.59 - 12/29/2021 DTL 1.04 mg/dL 12:38 PM ROOFING APPLICATOR eGFR-Non 78 >=60 12/29/2021 DTL Black/ mL/min/BSA 12:38 PM ROOFING APPLICATOR Z[place]ian Comment: ----ADDITIONAL INFORMATION---- Estimated GFR calculated using the 2009 CKD_EPI creatinine equation. eGFR-Black/ 90 >=60 mL/min/BSA 02/01/ 2022 12:38 PM ROOFING APPLICATOR DTL Comment: ----ADDITIONAL INFORMATION---- Estimated GFR calculated using the 2009 CKD_EPI creatinine equation. Calcium, Total, S 9.1 8.6 - 10.0 mg/dL 12/29/2021 12:3 8 PM ROOFING APPLICATOR DTL Glucose, S 90 70 - 140 mg/dL 12/29/2021 12:38 PM ROOFING APPLICATOR DTL Specimen Anatomical Collection Method Collection Time Receive d Time (Source) Location / / Volume Laterality Blood (Blood, 12/29/2021 11:34 12/29/2021 Venous) AM ROOFING APPLICATOR 12:13 PM ROOFING APPLICATOR Alfredo Kamara LAB BLOOD ADD-ON Performing Organization Address City/[facility] Phon e Number [facility] - [address] [place] [address] Laboratories-[address] Type and Screen (with reflex Antibody ID) (12/29/2021 11:34 AM ROOFING APPLICATOR) [facility] [employer] Method Time Signature ABORh A Neg Not applicable 12/29/2021 ETRM 12:59 PM ROOFING APPLICATOR Antibody CANCELED 12/29/2021 ETRM Screen 12:59 PM ROOFING APPLICATOR Comment: Result canceled by the ancillar y. Type & Screen Expiration 02/26/2022 23:59 12/29/19 22 12:59 PM ROOFING APPLICATOR ETRM Testing Location Ara DEFAULT 12/29/2021 11:58 AM ROOFING APPLICATOR ETRM Specimen Anatomical Collection Method Collection Time Receive d Time (Source) Location / / Volume Laterality Blood (Blood, 12/29/2021 11:34 12/29/2021 Venous) AM ROOFING APPLICATOR 11:58 AM ROOFING APPLICATOR Alfredo Kamara LAB BLOOD BANK TEST ORDERABL ES Performing Organization Address City/[facility] Phon e Number [facility] - [address] ETRM [address] (ABNORMAL) CBC with Differential, Blood (12/29/2021 11:34 AM ROOFING APPLICATOR) [facility] [employer] Method Time Signature Hemoglobin 11.2 (L) 11.6 - 12/29/2021 DTL 15.0 g/dL 12:02 PM ROOFING APPLICATOR Hematocrit 34.1 (L) 35.5 - 12/29/2021 DTL 44.9 % 12:02 PM ROOFING APPLICATOR Erythrocytes 4.04 3.92 - 12/29/2021 DTL 5.13 12:02 PM ROOFING APPLICATOR x10(12)/L MCV 84.4 78.2 - 12/29/2021 DTL 97.9 fL 12:02 PM ROOFING APPLICATOR RBC Distrib Width 20.2 (H) 12.2 - 12/29/2021 DTL 16.1 % 12:02 PM ROOFING APPLICATOR Platelet Count 324 157 - 371 12/29/2021 DTL x10(9)/L 12:02 PM ROOFING APPLICATOR Leukocytes 5.1 3.4 - 9.6 12/29/2021 DTL x10(9)/L 12:02 PM ROOFING APPLICATOR Neutrophils 3.08 1.56 - 12/29/2021 DTL 6.45 12:02 PM ROOFING APPLICATOR x10(9)/L Lymphocytes 1.39 0.95 - 12/29/2021 DTL 3.07 12:02 PM ROOFING APPLICATOR x10(9)/L Monocytes 0.43 0.26 - 12/29/2021 DTL 0.81 12:02 PM ROOFING APPLICATOR x10(9)/L Eosinophils 0.17 0.03 - 12/29/2021 DTL 0.48 12:02 PM ROOFING APPLICATOR x10(9)/L Basophils 0.05 0.01 - 12/29/2021 DTL 0.08 12:02 PM ROOFING APPLICATOR x10(9)/L Specimen Anatomical Collection Method Collection Time Receive d Time (Source) Location / / Volume Laterality Blood (Blood, 12/29/2021 11:34 12/29/2021 Venous) AM ROOFING APPLICATOR 11:54 AM ROOFING APPLICATOR Alfredo Kamara LAB BLOOD ADD-ON Performing Organization Address City/State/ZIP Code Phon e Number [facility] - [address] [place], [place] [address] [facility] [place] [address] Laboratories-[facility] [address] SARS Coronavirus 2, Molecular Detection, PCR, Varies Asymptomatic (12/29/2021 11:11 AM ROOFING APPLICATOR) [facility] Method Time Signature COVID-19, Swab, 12/29/2021 DTL PCR, Source Nasopharynx 4:19 PM ROOFING APPLICATOR COVID-19, Undetected Undetected 12/29/2021 DTL PCR, Result 4:19 PM ROOFING APPLICATOR Comment: SARS-CoV-2 RNA absent. This result does not rule out COVID-19 in the patient, as the sensitivity of the test depends o n the timing of the specimen collection and quality of the specimen. Result should be correlated with patient's history and clinical presentat ion. ----ADDITIONAL INFORMATION---- This RT-PCR test using the [employer] SARS-Co V-2 Assay ( [employer]) performed on the [employer] Intelligence Two Module System has received Emergency Use Authorization (EUA) by the U.S. Food and Drug Administration, and is modified from the book or script editor's instructions with a bridging study. Performance characteristics were verifie d by [facility] in a manner consistent with CLIA requirements. Visit the CDC website: https://www.cdc.g ov/coronavirus/ for the most recent guidelines on [facility] virus testing. Fact Sheet for Healthcare Providers: https://www.fda.gov/media/878756/downloa d Fact Sheet for Patients: https://www.fda.gov/media/806818/downloa d Specimen Anatomical Collection Method Collection Time Receive d Time (Source) Location / / Volume Laterality Varies 12/29/2021 11:11 12/29/2021 (Nasopharynx) AM ROOFING APPLICATOR 12:03 PM ROOFING APPLICATOR Alfredo Kamara LAB MICROBIOLOGY - GENERAL O RDERABLES Performing Organization Address City/State/ZIP Code Phon e Number [facility] - [address] [place], [place] [address] [facility] [place] [place] [address] Laboratories-[facility] [address] DX Shoulder Left 2+ Views (12/29/2021 10:30 AM ROOFING APPLICATOR) Anatomical Region Laterality Modality Upper Extremity, Shoulder, Musculoskeletal RST LOS, Left Digital Radiography Musculoskeletal ARZ LOS, Muskuloskeletal FLA LOS Specimen (Source) Anatomical Collection Method Collection Time Re ceived Time Location / / Volume Laterality 12/29/2021 10:53 AM ROOFING APPLICATOR Impressions 12/29/2021 10:57 AM ROOFING APPLICATOR Demineralization. Left shoulder arthroplasty revision to a reverse TSA. Developing lucency about the glenoi d component screws when compared back to 11/13/20, compatible with loosening. Pre sumed distal clavicle resection. Incompletely imaged instrumented spinal fusion from the upper cervical spine to the upper thoracic spine. Spinal cord st imulator. At least one old healed left posterior rib fracture. Narrative 12/29/2021 10:57 AM ROOFING APPLICATOR EXAM: ??DX SHOULDER LEFT 2+ VIEWS Procedure [...]
--- OUTSIDE RECORDS SUMMARY | 2022-09-20 14:10 | XMS_ITS | Encounter Summary ---
:1965 Author Organization [facility] Address [address] [place] [address] Care Team Providers Name Role Phone Unavailable Primary Care Provider Unavailable Encounter Details Date Type Department Care Team Description 10/13/2021 Clinical Communication Preoperative [facility] [place], [place] 200 [facility] [address] [place] [phone] Social History Tobacco Use Types Packs/Day Years [...] you attend hoahaoism or Patient refused 2021 cheondoism services? Do [...] Miscellaneous Notes Telephone Encounter - Umu Gan RBrittonR.T. - 10/13/2021 11:09 AM DOCUMENT SCANNER Surgical Risk Score: 3 Risk Identifiers: 4+ ??? TIA ??? PFO ??? Hx of Arterial Thrombosis ??? Asthma MENT SCANNER documented in this encounter Plan of Treatment Not on filedocumented as of this encounter Visit Diagnoses Not on filedocumented in this encounter Additional Health Concerns Assessment Noted Time PHQ-9 Depression Total Score: 16 02/11/2021 12:00 AM C DT documented as of this encounter
--- OUTSIDE RECORDS SUMMARY | 2022-09-20 14:10 | XMS_ITS | Encounter Summary ---
:[address] [facility] Address [address] [place] [address] Care Team Providers Name Role Phone Elsewhere, Pcp Primary Care Provider Unavailable Reason for Referral Outpatient (Routine) - Closed Specialty Diagnoses / Procedures Referred By Contact Refer red To Contact Orthopedic Surgery Diagnoses Pain Shoulder Left [facility] [address] [place] [phone] Referral ID Status Reason Start Date Expiration Date Visits Requ ested Visits Authorized [id number] Closed 12/30/2021 12/30/2022 1 1 UE MAKER Reason for Visit Reason Comments Pre-visit Testing Orders Encounter Details Date Type Department Care Team Description 12/29/2021 Clinical Communication Department of Jam, Pre- visit Testing Orthopedic Surgery Cyrus Souza M.D. Orders in [place], [address] [place] [address] [place] [phone] [place], [place] [phone] (Work) [phone] Social History Tobacco Use Types Packs/Day Years [...] 05/17/2022 organizations such as samaritan groups, unions, fraKiwigrid or athletic groups, or school groups? How [...] 12/29/2021 1:06 PM CST Please sign order UE MAKER documented in this encounter Plan of Treatment Scheduled Referrals Name Type Priority Associated Order Schedule Diagnoses Orthopedic Surgery Outpatient Referral Routine Pain Shoulder L eft Expected: Pre Op (clinic) 02/24/2022, Expires: 03/28/2023 documented as of this encounter Results SARS CoV-2 RNA, PCR, Varies Asymptomatic (02/25/2022 11:09 AM CDT) [facility] Method Time Signature SARS CoV-2 Swab, [...] Drug Administration an d is used per compounder helper's instructions. Performance characteristics were verified by [facility] in a manner consistent with CLIA requirements. Visit the CDC website: https://www.cdc.g ov/coronavirus/ for the most recent guidelines on Coron avirus testing. Fact Sheet for Healthcare Providers: https://www.fda.gov/media/352323/downloa d Fact Sheet for Patients: https://www.fda.gov/media/728379/downloa d Specimen Anatomical Collection Method Collection Time Receive d Time (Source) Location / / Volume Laterality Varies 02/25/2022 11:09 02/25/2022 (Nasopharynx) AM CDT 11:40 AM CDT Alfredo Kamara LAB MICROBIOLOGY - GENERAL O RDERABLES Performing Organization Address City/State/ZIP Code Phon e Number [facility] - 200 [place], [place] [address] [facility] [place] [address] [address] [address] documented in this encounter Visit Diagnoses Diagnosis Pain Shoulder Left - Primary documented in this encounter Additional Health Concerns Infection Onset Date Last Indicated Resolved Time COVID19 Pending 12/29/2021 12/29/2021 12/29/2021 4:20 PM STATUE MAKER Assessment Noted Time PHQ-9 Depression Total Score: 16 02/11/2021 12:00 AM C DT documented as of this encounter Care Teams Marketing Automation Specialist Relationship Specialty Start Date End Date Elsewhere, Pcp PCP - General Family Medicine 12/25/21 documented as of this encounter
--- OUTSIDE RECORDS SUMMARY | 2022-09-20 14:10 | XMS_ITS | Encounter Summary ---
:1965 Author Organization [facility] Address [address] [place] [address] Care Team Providers Name Role Phone Elsewhere, Pcp Primary Care Provider Unavailable Encounter Details Date Type Department Care Team Description 12/29/2021 Hospital Encounter Department of Alfredo Herrera Preoper ative Exam; Laboratory Medicine A, [facility]P.A.-C. Painful Total Joint Arthroplasty Initial (HCC) and Pathology, [address] [place] [address], in [facility] [phone] [place] [phone] [place] [address] (Work) [place], [place] [phone] (Fax) [phone] Social History Tobacco Use Types Packs/Day Years [...] you attend holiness or Patient refused 2021 quaker services? Do [...] THC multivit-min/iron/folic/ Take 1 tablet by 0 [id number] (HAIR, SKIN AND mouth daily. NAILS ADVANCED [...] 50 mL (2 g 2050 mL 0 /0 02/202202/11/2022 iso-osm, (ROCEPHIN) 2 total) into a [...] 12/29/2021 11:34 Results for this RBC AM CHEF procedure are i n the results section. CBC WITH Routine 12/29/2021 11:34 Preoperative Ex am Results for this DIFFERENTIAL, B AM CHEF Painful Total Joint proce dure are in Arthroplasty Initial the res ults ([facility]) section. TYPE AND SCREEN Routine 12/29/2021 11:34 Preoperative Ex am Results for this AM CHEF Painful Total Joint procedur e are in Arthroplasty Initial the res ults ([facility]) section. BASIC METABOLIC Routine 12/29/2021 11:34 Preoperative Ex am Results for this PANEL, S/P AM CHEF Painful Total Joint procedur e are in Arthroplasty Initial the res ults ([facility]) section. documented in this encounter Results Antibody Screen, RBC (12/29/2021 11:34 AM CHEF) athologist Signature Antibody Negative Negative 12/29/2021 DTL Screen 12:59 PM CHEF Specimen Anatomical Collection Method Collection Time Receive d Time (Source) Location / / Volume Laterality Blood 12/29/2021 11:34 12/29/2021 AM CHEF 11:58 AM CHEF Alfredo Kamara LAB BLOOD BANK TEST ORDERABL ES Performing Organization Address City/State/ZIP Code Phon e Number [facility] - [address] [place], [place] [address] [facility] [place] [address] Laboratories-[facility] [address] (ABNORMAL) Basic Metabolic Panel (12/29/2021 11:34 AM CHEF) [facility] Potassium, S 4.7 3.6 - 5.2 12/29/2021 DTL mmol/L 12:38 PM CHEF Sodium, S 143 135 - 145 12/29/2021 DTL mmol/L 12:38 PM CHEF Chloride, S 108 (H) 98 - 107 12/29/2021 DTL mmol/L 12:38 PM CHEF Bicarbonate, S 24 22 - 29 12/29/2021 DTL mmol/L 12:38 PM CHEF Anion Gap 11 7 - 15 12/29/2021 DTL 12:38 PM CHEF BUN (Blood Urea 15 6 - 21 12/29/2021 DTL Nitrogen), S mg/dL 12:38 PM CHEF Creatinine 0.83 0.59 - 12/29/2021 DTL 1.04 mg/dL 12:38 PM CHEF eGFR-Non 78 >=60 12/29/2021 DTL Black/ mL/min/BSA 12:38 PM CHEF Venezuelan Comment: ----ADDITIONAL INFORMATION---- Estimated GFR calculated using the 2009 CKD_EPI creatinine equation. eGFR-Black/ 90 >=60 mL/min/BSA 2021 12:38 PM CHEF DTL Comment: ----ADDITIONAL INFORMATION---- Estimated GFR calculated using the 2009 CKD_EPI creatinine equation. Calcium, Total, S 9.1 8.6 - 10.0 mg/dL 12/29/2021 12:3 8 PM CHEF DTL Glucose, S 90 70 - 140 mg/dL 12/29/2021 12:38 PM CHEF DTL Specimen Anatomical Collection Method Collection Time Receive d Time (Source) Location / / Volume Laterality Blood (Blood, 12/29/2021 11:34 12/29/2021 Venous) AM CHEF 12:13 PM CHEF Alfredo Kamara LAB BLOOD ADD-ON Performing Organization Address City/[facility]/ZIP [facility] Phon e Number [facility] - [address] [place] [phone] [facility] [place] [address] [facility] 200 [facility] Type and Screen (with reflex Antibody ID) (12/29/2021 11:34 AM CHEF) [facility] Method Time Signature ABORh A Neg Not applicable 12/29/2021 ETRM 12:59 PM CHEF Antibody CANCELED 12/29/2021 ETRM Screen 12:59 PM CHEF Comment: Result canceled by the ancillar y. Type & Screen Expiration 02/26/2022 23:59 12/29/19 22 12:59 PM CHEF ETRM Testing Location [place] DEFAULT 12/29/2021 11:58 AM CHEF ETRM Specimen Anatomical Collection Method Collection Time Receive d Time (Source) Location / / Volume Laterality Blood (Blood, 12/29/2021 11:34 12/29/2021 Venous) AM CHEF 11:58 AM CHEF Alfredo Kamara LAB BLOOD BANK TEST ORDERABL ES Performing Organization Address [facility] Phon e Number [facility] - [address] [place] [phone] [facility] [place] [address] [address] (ABNORMAL) CBC with Differential, Blood (12/29/2021 11:34 AM CHEF) [facility] Method Time Signature Hemoglobin 11.2 (L) 11.6 - 12/29/2021 DTL 15.0 g/dL 12:02 PM CHEF Hematocrit 34.1 (L) 35.5 - 12/29/2021 DTL 44.9 % 12:02 PM CHEF Erythrocytes 4.04 3.92 - 12/29/2021 DTL 5.13 12:02 PM CHEF x10(12)/L MCV 84.4 78.2 - 12/29/2021 DTL 97.9 fL 12:02 PM CHEF RBC Distrib Width 20.2 (H) 12.2 - 12/29/2021 DTL 16.1 % 12:02 PM CHEF Platelet Count 324 157 - 371 12/29/2021 DTL x10(9)/L 12:02 PM CHEF Leukocytes 5.1 3.4 - 9.6 12/29/2021 DTL x10(9)/L 12:02 PM CHEF Neutrophils 3.08 1.56 - 12/29/2021 DTL 6.45 12:02 PM CHEF x10(9)/L Lymphocytes 1.39 0.95 - 12/29/2021 DTL 3.07 12:02 PM CHEF x10(9)/L Monocytes 0.43 0.26 - 12/29/2021 DTL 0.81 12:02 PM CHEF x10(9)/L Eosinophils 0.17 0.03 - 12/29/2021 DTL 0.48 12:02 PM CHEF x10(9)/L Basophils 0.05 0.01 - 12/29/2021 DTL 0.08 12:02 PM CHEF x10(9)/L Specimen Anatomical Collection Method Collection Time Receive d Time (Source) Location / / Volume Laterality Blood (Blood, 12/29/2021 11:34 12/29/2021 Venous) AM CHEF 11:54 AM CHEF Alfredo Kamara LAB BLOOD ADD-ON Performing Organization Address City/State/ZIP Code Phon e Number [facility] - [address] [place], [place] [address] [facility] [address] Laboratories[facility] [address] documented in this encounter Visit Diagnoses Diagnosis Preoperative Exam Painful Total Joint Arthroplasty Initial (HCC) documented in this encounter Additional Health Concerns Assessment Noted Time PHQ-9 Depression Total Score: 16 02/11/2021 12:00 AM C DT documented as of this encounter Care Teams Canoe Inspector Relationship Specialty Start Date End Date Elsewhere, Pcp PCP - General Family Medicine 12/25/21 documented as of this encounter
--- OUTSIDE RECORDS SUMMARY | 2022-09-20 14:10 | XMS_ITS | Encounter Summary ---
:1965 Author Organization [facility] Address [address] [place] [address] Care Team Providers Name Role Phone Elsewhere, Pcp Primary Care Provider Unavailable Encounter Details Date Type Department Care Team Description 12/30/2021 Anesthesia Event RST SEBAS MORAN OR Clifford Young M.D. [address] [place] [phone] [address] [facility] [address] [place] [phone] [place] [phone] Anesthesia Record Procedure Summary [...] h andoff to the receiving staff during [facility] ch we 1. Identified the [...] by 12/30 1535 by Placement Time: 1302 AhEmre lobo T, Andrey Rodriguezscout anita T, (created via procedure DIGITAL X RAY SERVICE ENGINEER, EMPLOYMENT CONSULTANT DIGITAL X RAY SERVICE ENGINEER, DAKOTAN A documentation); Mask Ventilation: Easy mask; Type: [...] you attend bahai or Patient refused 2021 confucianism services? Do [...] or the highest technical, or vocational [facility] degree you have received? Sex Assigned at Date Recorded Female 03/01/2019 10:12 AM CDT documented as of this encounter OR Notes Anesthesia Postprocedure Evaluation - Clifford Young M.D. - 12/30/2021 3:55 PM CST Patient: Angie Mosquera Procedure Summary Date: 12/30/21 Room / Location: [address] / [facility] in [place], [place] Anesthesia Start: 1250 Anesthesia Stop: 1550 [...] Post Op nausea/vomiting: none Hydration status: euvolemic OSAL DEVELOPMENT MANAGER Anesthesia Procedure Notes - Emre Rodriguez APRN, CRNA - 12/30/2021 2:29 PM PROPOSAL DEVELOPMENT MANAGER Associated Order(s): Airway Airway Date/Time: 12/30/2021 1:02 [...] successful Airway event: no complications ATTESTATION STATEMENT OSAL DEVELOPMENT MANAGER Anesthesia Preprocedure Evaluation - Clifford Young M.D. - 12/30/2021 1:23 PM CST Preprocedure Anesthesia & H&P Assessment Procedure Summary Anesthesia Start Date/Time: 12/30/21 1250 Procedure: ARTHROPLASTY RESECTION SHOULDER. 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 Location: [address] / [facility] [place], [place] Providers: Cyrus Polk M.D. Pertinent components [...] with patient /legal guardian or through an remote broadcast technician. Risks/Benefits/Alternatives of Blood transfusion discussed with patient / legal guardian, including an opportunity to ask questions and/or decline some or all transfusion therapies. The patient / legalguardian consented to the use of all blood products, as deemed medically necessary Approval to Proceed: approved for anesthesia OSAL DEVELOPMENT MANAGER Anesthesia Procedure Notes - Clifford Khanna M.D. - 12/30/2021 12:56 PM PROPOSAL DEVELOPMENT MANAGER Associated Order(s): Regional Block Regional Block Date/Time: [...] successful procedure Other complications: none ATTESTATION STATEMENT OSAL DEVELOPMENT MANAGER documented in this encounter Plan of Treatment Not on filedocumented as of this encounter Procedures Procedure Name Priority Date/Time Associated Comments Diagnosis LDA ANE ENDOTRACHEAL Routine 12/30/2021 1:02 PM R esults for this AIRWAY PROPOSAL DEVELOPMENT MANAGER procedure are i n the results section. MC ANE NERVE BLOCK Routine 12/30/2021 12:56 Resul ts for this WITH ULTRASOUND PM PROPOSAL DEVELOPMENT MANAGER procedure ar e in the results section. LDA ANE UPPER Routine 12/30/2021 12:56 Results fo r this EXTREMITY PNC PM PROPOSAL DEVELOPMENT MANAGER procedure are in the results section. AK US GUIDE PLC NDL Routine 12/30/2021 12:56 Resu lts for this PM PROPOSAL DEVELOPMENT MANAGER procedure are i n the results section. AK INJ ANES BRACHIAL Routine 12/30/2021 12:56 Res ults for this PLEXUS CONT PM PROPOSAL DEVELOPMENT MANAGER procedure are i n the results section. documented in this encounter Results LDA ANE ENDOTRACHEAL AIRWAY (12/30/2021 1:02 PM PROPOSAL DEVELOPMENT MANAGER) Narrative Emre Rodriguez APRN, CRNA - 12/30/2021 1:02 PM PROPOSAL DEVELOPMENT MANAGER Emre Rodriguez APRN, CRNA ? 12/30/2021 ??2:30 [...] ATTESTATION STATEMENT Clifford Young M.D. ANESTHESIA ORDERABLES AK INJ ANES BRACHIAL PLEXUS CONT, AK US GUIDE PLC NDL, LDA ANE UPPER EXTREMITY PNC, MC ANE NERVE BLOCK WITH ULTRASOUND (12/30/2021 12:56 PM PROPOSAL DEVELOPMENT MANAGER) Narrative Clifford Khanna M.D. - 12/30/2021 12:56 P M PROPOSAL DEVELOPMENT MANAGER Clifford Khanna M.D. ? 12/30/2021 12:57 PM [...] 5 % injection Given 12/30/2021 1:52 PM PROPOSAL DEVELOPMENT MANAGER 250 mL intravenous, As needed, Starting on Tue12/30/21 at 1352, Anesthesia Intra-op bupivacaine PF 0.5 % (5 mg/mL) injection Given 12/30/2021 12:45 PM PROPOSAL DEVELOPMENT MANAGER 10 mL (MARCAINE) intrathecal, As needed, Starting on Tue12/30/21 at 1245, Anesthesia Intra-op ceFAZolin injection 2,000 mg (ANCEF) Given 12/30/2021 2:19 PM PROPOSAL DEVELOPMENT MANAGER 2 g 2,000 mg (rounded from 1,747.5 [...] dexAMETHasone injection (DECADRON) Given 12/30/2021 1:09 PM PROPOSAL DEVELOPMENT MANAGER 8 mg intravenous, As needed, Starting on Tue12/30/21 at 1309, Anesthesia Intra-op diphenhydrAMINE injection (BENADRYL) Given 12/30/2021 1:32 PM PROPOSAL DEVELOPMENT MANAGER 12.5 mg intravenous, As needed, Starting on Tue12/30/21 at 1332, Anesthesia Intra-op ePHEDrine (PF) injection Given 12/30/2021 1:58 PM PROPOSAL DEVELOPMENT MANAGER 10 mg intravenous, As needed, Starting on Tue12/30/21 at 1346, Anesthesia Intra-op Given 12/30/2021 1:46 PM PROPOSAL DEVELOPMENT MANAGER 5 mg Given 12/30/2021 1:24 PM PROPOSAL DEVELOPMENT MANAGER 10 mg fentaNYL injection (SUBLIMAZE) Given 12/30/2021 3:12 PM PROPOSAL DEVELOPMENT MANAGER 50 mcg intravenous, As needed, Starting on Tue12/30/21 at 1512, Anesthesia Intra-op ketamine injection (KETALAR) Given 12/30/2021 2:43 PM PROPOSAL DEVELOPMENT MANAGER 20 mg intravenous, As needed, Starting on Tue12/30/21 at 1443, Anesthesia Intra-op lactated ringers New Bag 12/30/2021 12:53 PM PROPOSAL DEVELOPMENT MANAGER intravenous, Continuous Infusion: Per Instructions PRN, Starting on Tue12/30/21 at 1253, Anesthesia Intra-op ondansetron (PF) injection (ZOFRAN) Given 12/30/2021 3:00 PM PROPOSAL DEVELOPMENT MANAGER 4 mg intravenous, As needed, Starting on Tue12/30/21 at 1500, Anesthesia Intra-op phenylephrine 80 mcg/mL in Rate/Dose 12/30/2021 3:00 0.4 mcg/kg/min 20.97 NaCl 0.9% 250 mL infusion Change PM PROPOSAL DEVELOPMENT MANAGER mL/hr intravenous, Continuous Infusion: Per Instructions PRN, Starting on Tue12/30/21 at 1404, Anesthesia Intra-op Rate/Dose Change 12/30/2021 2:36 PM PROPOSAL DEVELOPMENT MANAGER 0.3 mcg/kg/min 15.728 mL/hr Rate/Dose Change 12/30/2021 2:25 PM PROPOSAL DEVELOPMENT MANAGER 0.25 mcg/kg/min 13.106 mL/h r phenylephrine injection Given 12/30/2021 2:31 PM PROPOSAL DEVELOPMENT MANAGER 100 mcg intravenous, As needed, Starting on Tue12/30/21 at 1346, Anesthesia Intra-op Given 12/30/2021 2:12 PM PROPOSAL DEVELOPMENT MANAGER 100 mcg Given 12/30/2021 2:10 PM PROPOSAL DEVELOPMENT MANAGER 100 mcg propofol 10 mg/mL infusion New Bag 12/30/2021 1:15 50 mcg/kg/min 2 0.97 mL/hr (DIPRIVAN) PM PROPOSAL DEVELOPMENT MANAGER intravenous, Continuous Infusion: Per Instructions PRN, Starting on Tue12/30/21 at 1315, Anesthesia Intra-op New Bag 12/30/2021 1:09 PM PROPOSAL DEVELOPMENT MANAGER 50 mcg/kg/min 20.97 mL/hr propofoL injection (DIPRIVAN) Given 12/30/2021 12:59 PM PROPOSAL DEVELOPMENT MANAGER 140 mg intravenous, As needed, Starting on Tue12/30/21 at 1259, Anesthesia Intra-op rocuronium injection (ZEMURON) Given 12/30/2021 1:12 PM PROPOSAL DEVELOPMENT MANAGER 10 mg intravenous, As needed, Starting on Tue12/30/21 at 1301, Anesthesia Intra-op Given 12/30/2021 1:01 PM PROPOSAL DEVELOPMENT MANAGER 50 mg sugammadex injection (BRIDION) Given 12/30/2021 3:14 PM PROPOSAL DEVELOPMENT MANAGER 139.8 mg intravenous, As needed, Starting on [...] as of this encounter Care Teams Machine Steak Tenderizer Relationship Specialty Start Date End Date Elsewhere, Pcp PCP - General Family Medicine 12/25/21 documented as of this encounter
--- OUTSIDE RECORDS SUMMARY | 2022-09-20 14:10 | XMS_ITS | Encounter Summary ---
:1965 Author Organization [facility] Address [address] [place] [address] Care Team Providers Name Role Phone Elsewhere, Pcp Primary Care Provider Unavailable Reason for Visit Outpatient (Routine) - Closed Specialty Diagnoses / Procedures Referred By Contact Refer red To Contact Anesthesiology Diagnoses Preoperative Exam Painful Total Joint Arthroplasty Initial (HCC) Alfredo Herrera [facility] [address] [place] [phone] Referral ID Status Reason Start Date Expiration Date Visits Requ ested Visits Authorized [id number] Closed 10/13/2021 10/13/2022 1 1 Encounter Details Date Type Department Care Team Description 12/29/2021 Comprehensive Visit Preoperative Cayetano Herrera O.P.A.-CBritton [address] [place] [phone] Preanesthetic Medical Exam (Primary Dx); Evaluation Center Etta Lyle M.D. 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); 200 [facility] Aneurysm Cerebral Unruptured ([facility]); [place], [place] Dissection Debra tebral Artery (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 Do [...] Comments Blood Pressure 125/78 12/29/2021 1:21 PM LINING FELLER Pulse 64 12/29/2021 1:21 PM LINING FELLER Temperature 36.1 ??C (97 ??F) 12/29/2021 1:01 PM LINING FELLER Respiratory Rate - - Oxygen Saturation 97% 12/29/2021 1:21 PM LINING FELLER Inhaled Oxygen Concentration - - Weight 72.6 kg (160 lb 0.9 oz) 12/29/2021 1:01 PM LINING FELLER Height 152 cm (4' 11.84) 12/29/2021 1:01 PM LINING FELLER Body Mass Index 31.42 12/29/2021 1:01 PM LINING FELLER documented in this encounter H&P Notes Etta [...] RCRI score: 1; 6% risk of , IA, or cardiac arrest OBJECTIVE OBJECTIVE PHYSICAL EXAMINATION [...] 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) # Aneurysm Cerebral Unruptured ([facility]) # Dissection Vertebral Artery (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) # Anxiety Generalized Disorder - s/p spinal cord stimulator placement ([employer], MRI compatible to 1.5 Lucy) - patient [...] with patient the Checklist for Surgical Patients [id number]. Written and verbal instructions given on medication [...] Lyle M.D. PGY-3, Anesthesiology and Perioperative Medicine [facility] NG FELLER documented in this encounter Plan of [...] COVID19 Pending 12/29/2021 12/29/2021 12/29/2021 4:20 PM LINING FELLER Assessment Noted Time PHQ-9 Depression Total Score: 16 02/11/2021 12:00 AM C DT documented as of this encounter Care Teams Public Transit Bus Driver Relationship Specialty Start Date End Date Elsewhere, Pcp PCP - General Family Medicine 12/25/21 documented as of this encounter
--- OUTSIDE RECORDS SUMMARY | 2022-09-20 14:10 | XMS_ITS | Encounter Summary ---
:1965 Author Organization [facility] Address [address] [place] [address] Care Team Providers Name Role Phone Elsewhere, Pcp Primary Care Provider Unavailable Encounter Details Date Type Department Care Team Description 12/29/2021 Hospital Encounter Department of Alfredo Herrera Preoper ative Exam; Radiology, Anh Gonzales Painful Total Joint Arthroplasty Initial ([facility]) Building, in [address] [place] [phone] [place] [address] [place], [place] (Work) [phone] Social History Tobacco Use Types Packs/Day Years [...] you attend adventism or Patient refused 2021 islam services? Do [...] THC multivit-min/iron/folic/ Take 1 tablet by 0 [id number] (HAIR, SKIN AND mouth daily. NAILS ADVANCED [...] 50 mL (2 g 0 mL 0 02/02/202202/11/2022 iso-osm, (ROCEPHIN) 2 total) [...] for this 2+ VIEWS (most inpatients AM SOILED LINEN DISTRIBUTOR Painful Total Joint proc edure are in and all Arthroplasty the results outpatients) Initial (HCC) section. documented in this encounter Results DX Shoulder Left 2+ Views (12/29/2021 10:30 AM SOILED LINEN DISTRIBUTOR) Anatomical Region Laterality Modality Upper Extremity, Shoulder, Musculoskeletal RST LOS, Left Digital Radiography Musculoskeletal ARZ LOS, Muskuloskeletal FLA LOS Specimen (Source) Anatomical Collection Method Collection Time Re ceived Time Location / / Volume Laterality 12/29/2021 10:53 AM SOILED LINEN DISTRIBUTOR Impressions 12/29/2021 10:57 AM SOILED LINEN DISTRIBUTOR Demineralization. Left shoulder arthroplasty revision to a reverse TSA. Developing lucency about the glenoi d component screws when compared back to 11/13/20, compatible with loosening. Pre sumed distal clavicle resection. Incompletely imaged instrumented spinal fusion from the upper cervical spine to the upper thoracic spine. Spinal cord st imulator. At least one old healed left posterior rib fracture. Narrative 12/29/2021 10:57 AM SOILED LINEN DISTRIBUTOR EXAM: ??DX SHOULDER LEFT 2+ VIEWS Procedure [...] COVID19 Pending 12/29/2021 12/29/2021 12/29/2021 4:20 PM SOILED LINEN DISTRIBUTOR Assessment Noted Time PHQ-9 Depression Total Score: 16 02/11/2021 12:00 AM C DT documented as of this encounter Care Teams Roll Cleaner Relationship Specialty Start Date End Date Elsewhere, Pcp PCP - General Family Medicine 12/25/21 documented as of this encounter
--- OUTSIDE RECORDS SUMMARY | 2022-09-20 14:10 | XMS_ITS | Encounter Summary ---
:1965 Author Organization [facility] Address [address] [place] [address] Care Team Providers Name Role Phone Unavailable Primary Care Provider Unavailable Reason for Visit Reason Comments Communication results Encounter Details Date Type Department Care Team Description 10/05/2021 Clinical Communication Department of Rossy Polk Orthopedic Surgery Cyrus Souza M.D. (results) in [address] [place] [phone] Social History Tobacco Use Types Packs/Day Years [...] you attend yazidi or Patient refused 2021 presybeterian services? Do [...] Cyrus Polk M.D. CT CT Job ID: [id number] INAL PROFILER documented in this encounter Miscellaneous Notes Telephone Encounter - Sosa Laughlin - 10/05/2021 3:17 PM CST Please list patient for 12/30/21. Thank you INAL PROFILER Telephone Encounter - Cyrus Polk M.D. - 10/05/2021 11:37 AM CST Dx: left infected shoulder arthroplasty Procedure: left resection shoulder arthroplasty UE82, NESHA, and see me Surgery date: December 30 Thank you INAL PROFILER Telephone Encounter - Radha Suh - 10/05/2021 11:18 AM CST Ms. Mosquera calls for results of labs, CT and aspiration results ( She is disappointment no one has reached out to her and that she had to call for these) Please call her with results to date INAL PROFILER documented in this encounter Plan of Treatment Not on filedocumented as of this encounter Visit Diagnoses Not on filedocumented in this encounter Additional Health Concerns Assessment Noted Time PHQ-9 Depression Total Score: 16 02/11/2021 12:00 AM C DT documented as of this encounter
--- OUTSIDE RECORDS SUMMARY | 2022-09-20 14:10 | XMS_ITS | Encounter Summary ---
:1965 Author Organization [facility] Address [address] [place] [address] Care Team Providers Name Role Phone Unavailable Primary Care Provider Unavailable Reason for Visit Reason Comments Michel Encounter Details Date Type Department Care Team Description 11/25/2021 Clinical Communication Department of Chani Benjamin Neurologic Surgery in [place] Jang, [place], [place] Ph.D. [address] [place] [address] 200 [place] [phone] Social History Tobacco Use Types Packs/Day Years [...] you attend druze or Patient refused 2021 islam services? Do [...] for your help. Boris Neurosurgery Appointment Office [phone] Please respond to the RST YEYO SCHEDULING Pool Thank You HER ASSEMBLER documented in this encounter Plan of Treatment Not on filedocumented as of this encounter Visit Diagnoses Not on filedocumented in this encounter Additional Health Concerns Assessment Noted Time PHQ-9 Depression Total Score: 16 02/11/2021 12:00 AM C DT documented as of this encounter
--- OUTSIDE RECORDS SUMMARY | 2022-09-20 14:10 | XMS_ITS | Encounter Summary ---
:1965 Author Organization [facility] Address [address] [place] [address] Care Team Providers Name Role Phone Unavailable Primary Care Provider Unavailable Reason for Visit Outpatient (Routine) - Closed Specialty Diagnoses / Procedures Referred By Contact Refer red To Contact Neurology Robert Diehl M. D. [facility] [address] [place] [phone] Referral ID Status Reason Start Date Expiration Date Visits Requ ested Visits Authorized [id number] Closed 09/15/2020 09/15/2021 1 1 Encounter Details Date Type Department Care Team Description 11/18/2021 Virtual Visit Department of Robert Diehl Stroke Cere brovascular Neurology jimmy Celaya M.D. Accident Personal [place], [place] [address] [place] [address] History (Primary Dx) [address] [place] [phone] Social History Tobacco Use Types Packs/Day Years [...] you attend episcopalian or Patient refused 2021 judaism services? Do you belong to any clubs or No 05/17/2022 organizations such as episcopalian groups, unions, fra[employer]oseon [employer] or athletic groups, or school groups? [...] 19 pandemic patient not seen in a ooen-ue-asmg manner. This is a 56-year-old woman with [...] antibiotics she has not been seen by [facility] Orthopedics Department who are planning a two [...] by: Robert Diehl M.D. 11/18/21 11:46 AM CONE EXAMINER Diagnosis Plan 1. Stroke Cerebrovascular Accident Personal History EXAMINER documented in this encounter Plan of Treatment Not on filedocumented as of this encounter Visit Diagnoses Diagnosis Stroke Cerebrovascular Accident Personal History - Primary documented in this encounter Additional Health Concerns Assessment Noted Time PHQ-9 Depression Total Score: 16 02/11/2021 12:00 AM C DT documented as of this encounter
--- OUTSIDE RECORDS SUMMARY | 2022-09-20 14:11 | XMS_ITS | Encounter Summary ---
:1965 Author Organization [facility] Address [address] [place] [address] Care Team Providers Name Role Phone Unavailable Primary Care Provider Unavailable Reason for Referral MRI/CAT/PET Scan (Routine) - Closed Specialty Diagnoses / Procedures Referred By Contact Refer red To Contact Radiology Diagnoses Painful Total Joint Arthroplasty Initial ([facility]) Alfredo Herrera [facility] [facility] Procedures CT Shoulder Left without IV Contrast O.P.A.-C. [address] [place] [phone] Referral ID Status Reason Start Date Expiration Date Visits Requ ested Visits Authorized [id number] Closed 09/07/2021 09/07/2022 1 1 Reason for Visit MRI/CAT/PET Scan (Routine) - Closed Specialty Diagnoses / Procedures Referred By Contact Refer red To Contact Radiology Diagnoses Painful Total Joint Arthroplasty Initial ([facility]) Alfredo Herrera [facility] [facility] Procedures CT Shoulder Left without IV Contrast O.P.A.-C. [address] [place] [phone] Referral ID Status Reason Start Date Expiration Date Visits Requ ested Visits Authorized [id number] Closed 09/07/2021 09/07/2022 1 1 Encounter Details Date Type Department Care Team Description 09/25/2021 Hospital Encounter Department of Alfredo Herrera Painful Total Joint Radiology, Roxana HillCBritton Arthroplasty Initial Building, in [address] [place] [address] ([facility]) [facility] [phone] 200 [facility] [phone] [place], [place] (Work) [phone] Social History Tobacco Use Types Packs/Day Years [...] you attend congregational or Patient refused 2021 latter-day services? Do [...]
--- OUTSIDE RECORDS SUMMARY | 2022-09-20 14:11 | XMS_ITS | Encounter Summary ---
:1965 Author Organization [facility] Address [address] [place] [address] Care Team Providers Name Role Phone Unavailable Primary Care Provider Unavailable Reason for Visit MRI/CAT/PET Scan (Routine) - Canceled Specialty Diagnoses / Procedures Referred By Contact Refer red To Contact Radiology Diagnoses Aneurysm Cerebral Unruptured (HCC) Robert Diehl M.D. [facility] Procedures MR Brain Angiogram without IV Contrast [address] [place] [address] Referral ID Status Reason Start Date Expiration Date Visits V isits Requested Authorized [id number] Canceled 09/15/2020 09/15/2021 1 1 Encounter Details Date Type Department Care Team Description 09/18/2021 Hospital Encounter Department of Robert Diehl ed (Patient: Radiology, Severiano Celaya M.D. Request) [facility], [address] [place], [place] [address] [place] [phone] [place], [place] [phone] (Work) [phone] Social History Tobacco Use Types Packs/Day Years [...] you attend congregational or Patient refused 2021 druze services? Do you belong to any clubs or No 05/17/2022 organizations such as congregational groups, unions, fraRijuven or athletic groups, or school groups? How [...]
--- OUTSIDE RECORDS SUMMARY | 2022-09-20 14:11 | XMS_ITS | Encounter Summary ---
:1965 Author Organization [facility] Address [address] [place] [address] Care Team Providers Name Role Phone Unavailable Primary Care Provider Unavailable Reason for Visit Reason Comments pain medication Encounter Details Date Type Department Care Team Description 06/04/2021 Clinical Communication Department of Bert, Dario willard medication Orthopedic Surgery Lilian Alejo in [place], [address] [place] [address] [place] [phone] [place], [place] [phone] (Work) [phone] Social History Tobacco Use Types Packs/Day Years [...] Notes Telephone Encounter - Michael Noble Jr., P.A.DidierC. - 06/04/2021 1:53 PM CDT I spoke [...] meds/scripts. Patient would like a call - [phone] documented in this encounter Plan of Treatment Not on filedocumented as of this encounter Visit Diagnoses Not on filedocumented in this encounter Additional Health Concerns Assessment Noted Time PHQ-9 Depression Total Score: 16 02/11/2021 12:00 AM C DT documented as of this encounter
--- OUTSIDE RECORDS SUMMARY | 2022-09-20 14:11 | XMS_ITS | Encounter Summary ---
:1965 Author Organization [facility] Address [address] [place] [address] Care Team Providers Name Role Phone Unavailable Primary Care Provider Unavailable Reason for Visit Physical Therapy (Routine) - Closed Specialty Diagnoses / Procedures Referred By Contact Refer red To Contact Diagnoses Dissociation Scapholunate Left Dario Noel M.D. [facility] Procedures PT or OT eval and treat (first available) [address] [place] [phone] Referral ID Status Reason Start Date Expiration Date Visits Requ ested Visits Authorized [id number] Closed 06/08/2021 06/08/2022 99 99 Encounter Details Date Type Department Care Team Description 06/08/2021 Clinical Support Department of Physical German Noel M.D. [address] [place] [phone] Pain Wrist Left (Primary Dx); Medicine and Veena Quevedo M.S., C.H.T., O.T. [address] [place] [phone] Dissociation Scapholunate Left Rehabilitation in [place], [place] [address] [place] [phone] Social History Tobacco Use Types Packs/Day [...] you attend pentecostalism or Patient refused 2021 sikhism services? Do [...] therapy session: yes SUBJECTIVE Patient's Name: Angie J. Demetri Referring Provider: Dario Noel M.D. Reason for [...] (HCC) ??? Nicotine Dependence Unspecified ??? Other Weigher Alloy Current Drug Therapy Past Surgical History: Procedure [...] the following home instruction handouts: Splint Receipt [id number]. Active Hand Exercises (Six Pack) [id number]. Active Wrist Exercises [id number] Assessment Clinical Impression: The patient tolerated the [...]
--- OUTSIDE RECORDS SUMMARY | 2022-09-20 14:11 | XMS_ITS | Encounter Summary ---
:1965 Author Organization [facility] Address [address] [place] [address] Care Team Providers Name Role Phone Unavailable Primary Care Provider Unavailable Encounter Details Date Type Department Care Team Description 05/04/2021 Clinical Communication Department of Dario Noel , Orthopedic Surgery in [place], [place] [address] [place] [address] [address] [place] [phone] Social History Tobacco Use Types Packs/Day Years [...]
--- OUTSIDE RECORDS SUMMARY | 2022-09-20 14:11 | XMS_ITS | Encounter Summary ---
:1965 Author Organization [facility] Address [address] [place] [address] Care Team Providers Name Role Phone Unavailable Primary Care Provider Unavailable Reason for Referral Outpatient (Routine) - Closed Specialty Diagnoses / Procedures Referred By Contact Refer red To Contact Orthopedic Surgery Michael Noble [facility] , P.A.-C. [facility] [place] [address] Referral ID Status Reason Start Date Expiration Date Visits Requ ested Visits Authorized [id number] Closed 05/04/2021 05/04/2022 1 1 Scheduling Instructions Pulos Encounter Details Date Type Department Care Team Description 05/04/2021 Orders Only Department of Orthopedic Mirna Noble Surgery in [facility] , P.A.- C. [address] 200 [place] [phone] (Wo rk) Social History Tobacco Use Types [...] you attend hoahaoism or Patient refused 2021 latter day services? Do you belong to any clubs or No 05/17/2022 organizations such as hoahaoism groups, unions, fraLodestone [employer] Media or athletic groups, or school groups? How [...]
--- OUTSIDE RECORDS SUMMARY | 2022-09-20 14:11 | XMS_ITS | Encounter Summary ---
:1965 Author Organization [facility] Address [address] [place] [address] Care Team Providers Name Role Phone Unavailable Primary Care Provider Unavailable Reason for Visit Reason Comments Nicotine Dependence Encounter Details Date Type Department Care Team Description 07/30/2021 Clinical Communication Department of [facility], Carolyn Mccarthy cotine Dependence Nicotine M.S., Dependence, C.T.T.S., [facility], L.[facility]C. in [place], [address] [place] [address] [place] [phone] [place], [place] [phone] (Work) [phone] Social History Tobacco Use Types Packs/Day Years [...]
--- OUTSIDE RECORDS SUMMARY | 2022-09-20 14:11 | XMS_ITS | Encounter Summary ---
:1965 Author Organization [facility] Address [address] [place] [address] Care Team Providers Name Role Phone Unavailable Primary Care Provider Unavailable Reason for Visit Reason Comments Nicotine Dependence Encounter Details Date Type Department Care Team Description 07/16/2021 Clinical Communication Department of [facility], Carolyn Mccarthy cotine Dependence Nicotine M.S., Dependence, C.T.T.S., [facility], L.P.C.C. in [place], [address] [place] [address] [place] [phone] [place], [place] [phone] (Work) [phone] Social History Tobacco Use Types Packs/Day Years [...]
--- OUTSIDE RECORDS SUMMARY | 2022-09-20 14:11 | XMS_ITS | Encounter Summary ---
:1965 Author Organization [facility] Address [address] [place] [address] Care Team Providers Name Role Phone Unavailable Primary Care Provider Unavailable Encounter Details Date Type Department Care Team Description 09/23/2021 Hospital Encounter Department of Alfredo Herrera Total Joint Laboratory Medicine A, O.PBrittonABritton-CBritton Arthroplasty Initial and Pathology, [address] [place] [address] ([facility]) [facility] in [place] [phone] [place] [phone] 200 [facility] (Work) [place], [place] [phone] (Fax) [phone] Social History Tobacco Use Types Packs/Day Years [...] you attend zoroastrian or Patient refused 2021 voodoo services? Do [...] (ABNORMAL) Sedimentation Rate (09/23/2021 9:07 AM CDT) [facility] Method Time Signature Sedimentation 31 (H) 2 - 22 09/23/2021 DTL Rate, B mm/h 10:46 AM CDT Specimen Anatomical Collection Method Collection Time Receive d Time (Source) Location / / Volume Laterality Blood (Blood, 09/23/2021 9:07 AM 09/23/20 9:30 Venous) CDT AM CDT Alfredo Kamara LAB BLOOD ADD-ON Performing Organization Address City/[facility] Phon e Number [facility] - 200 [place], [place] [address] [place] [address] [place] [address] Laboratories-[address] CRP (C-Reactive Protein) (09/23/2021 9:07 AM CDT) P athologist Signature C-Reactive <3.0 <=8.0 mg/L 09/23/2021 DTL Protein (CRP), 10:30 AM CDT S Specimen Anatomical Collection Method Collection Time Receive d Time (Source) Location / / Volume Laterality Blood (Blood, 09/23/2021 9:07 AM 09/23/20 9:57 Venous) CDT AM CDT Alfredo Kamara LAB BLOOD ADD-ON Performing Organization Address City/[facility] Phon e Number [facility] - 200 [place], [place] [address] [place] [address] Laboratories-[address] (ABNORMAL) CBC with Differential, Blood (09/23/2021 9:07 AM CDT) [facility] Method Time Signature Hemoglobin 10.1 [...] [facility] - [address] [place], [place] [address] [facility] [place] [address] [address] documented in this encounter Visit Diagnoses Diagnosis Painful Total Joint Arthroplasty Initial (HCC) documented in this encounter Additional Health Concerns Assessment Noted Time PHQ-9 Depression Total Score: 16 02/11/2021 12:00 AM C DT documented as of this encounter
--- OUTSIDE RECORDS SUMMARY | 2022-09-20 14:11 | XMS_ITS | Encounter Summary ---
:1965 Author Organization [facility] Address [address] [place] [address] Care Team Providers Name Role Phone Unavailable Primary Care Provider Unavailable Reason for Referral Outpatient (Routine) - Closed Specialty Diagnoses / Procedures Referred By Contact Refer red To Contact Diagnoses Dissociation Scapholunate Left Michael Downs M.D. [facility] Procedures ORS Cast Room Visit [address] [place] [phone] Referral ID Status Reason Start Date Expiration Date Visits Requ ested Visits Authorized [id number] Closed 05/08/2021 05/08/2022 1 1 Outpatient (Routine) - Closed Specialty Diagnoses / Procedures Referred By Contact Refer red To Contact Diagnoses Dissociation Scapholunate Left Michael Downs M.D. [facility] Procedures ORS Cast Room Visit [address] [place] [phone] Referral ID Status Reason Start Date Expiration Date Visits Requ ested Visits Authorized [id number] Closed 05/08/2021 05/08/2022 1 1 Reason for Visit Reason Onset Date Comments Left Without Being Seen 07/17/2021 Outpatient (Routine) - Closed Specialty Diagnoses / Procedures Referred By Contact Refer red To Contact Orthopedic Surgery [facility] [address] [place] [phone] Referral ID Status Reason Start Date Expiration Date Visits Requ ested Visits Authorized [id number] Closed 05/04/2021 05/04/2022 1 1 Encounter Details Date Type Department Care Team Description 05/08/2021 Office Visit Department of PulDario willis, Dissocia tion Scapholunate Left (Primary Dx); Orthopedic Surgery in M.D. Procedure And Treatment Not Carried Out Due To Patient Leaving Prior To Being Seen By Health Care Provider [place], [place] [address] [place] [address] [place] [phone] Social History Tobacco Use Types Packs/Day Years [...] attend latter day or Patient refused 2021 denominational services? Do [...]
--- OUTSIDE RECORDS SUMMARY | 2022-09-20 14:11 | XMS_ITS | Encounter Summary ---
:1965 Author Organization [facility] Address [address] [place] [address] Care Team Providers Name Role Phone Unavailable Primary Care Provider Unavailable Reason for Referral Outpatient (Routine) - Closed Specialty Diagnoses / Procedures Referred By Contact Refer red To Contact Orthopedic Surgery Dario Noel M .D. [facility] 200 [place] [address] Referral ID Status Reason Start Date Expiration Date Visits Requ ested Visits Authorized [id number] Closed 06/08/2021 06/08/2022 1 1 Physical Therapy (Routine) - Closed Specialty Diagnoses / Procedures Referred By Contact Refer red To Contact Diagnoses Dissociation Scapholunate Left Dario Noel M.D. [facility] Procedures PT or OT eval and treat (first available) [address] [place] [phone] Referral ID Status Reason Start Date Expiration Date Visits Requ ested Visits Authorized [id number] Closed 06/08/2021 06/08/2022 99 99 Outpatient (Routine) - Closed Specialty Diagnoses / Procedures Referred By Contact Refer red To Contact Diagnoses Dissociation Scapholunate Left Michael Downs M.D. [facility] Procedures ORS Cast Room Visit [address] [place] [phone] Referral ID Status Reason Start Date Expiration Date Visits Requ ested Visits Authorized [id number] Closed 05/08/2021 05/08/2022 1 1 Reason for Visit Reason Comments Cast Check Follow-up Outpatient (Routine) - Closed Specialty Diagnoses / Procedures Referred By Contact Refer red To Contact Diagnoses Dissociation Scapholunate Left Michael Downs M.D. [facility] Procedures ORS Cast Room Visit [address] [place] [phone] Referral ID Status Reason Start Date Expiration Date Visits Requ ested Visits Authorized [id number] Closed 05/08/2021 05/08/2022 1 1 Encounter Details Date Type Department Care Team Description 06/08/2021 Hospital Encounter Department of Paul Downs M.D. [address] [place] [phone] Dissociation Orthopedic Surgery Dario Noel M.D. [address] [place] [phone] Scapholunate Left in [place], [place] [address] [place] [phone] Social History Tobacco Use Types Packs/Day Years [...] you attend orthodox or Patient refused 2021 yazidi services? Do [...]
--- OUTSIDE RECORDS SUMMARY | 2022-09-20 14:11 | XMS_ITS | Encounter Summary ---
:1965 Author Organization [facility] Address [address] [place] [address] Care Team Providers Name Role Phone Unavailable Primary Care Provider Unavailable Encounter Details Date Type Department Care Team Description 09/23/2021 Hospital Encounter Department of Alfredo Herrera Total Joint Radiology, Anh Gonzales Arthroplasty Initial Building, in [address] [place] [address] ([facility]) [facility] [phone] [place] [address] [place], [place] (Work) [phone] Social History Tobacco Use Types Packs/Day Years [...] you attend amish or Patient refused 2021 catholic services? Do [...] infection. Alfredo Kamara IMG DIAGNOSTIC IMAGING PROCE ZULEYKA documented in this encounter Visit Diagnoses Diagnosis Painful Total Joint Arthroplasty Initial (HCC) documented in this encounter Additional Health Concerns Assessment Noted Time PHQ-9 Depression Total Score: 16 02/11/2021 12:00 AM C DT documented as of this encounter
--- OUTSIDE RECORDS SUMMARY | 2022-09-20 14:11 | XMS_ITS | Encounter Summary ---
:1965 Author Organization [facility] Address [address] [place] [address] Care Team Providers Name Role Phone Unavailable Primary Care Provider Unavailable Reason for Referral Outpatient (Routine) - Closed Specialty Diagnoses / Procedures Referred By Contact Refer red To Contact Diagnoses Dissociation Scapholunate Left Michael Downs M.D. [facility] Procedures ORS Cast Room Visit [address] [place] [phone] Referral ID Status Reason Start Date Expiration Date Visits Requ ested Visits Authorized [id number] Closed 05/08/2021 05/08/2022 1 1 Reason for Visit Reason Comments Follow-up Outpatient (Routine) - Closed Specialty Diagnoses / Procedures Referred By Contact Refer red To Contact Diagnoses Dissociation Scapholunate Left Michael Downs M.D. [facility] Procedures ORS Cast Room Visit [address] [place] [phone] Referral ID Status Reason Start Date Expiration Date Visits Requ ested Visits Authorized [id number] Closed 05/08/2021 05/08/2022 1 1 Encounter Details Date Type Department Care Team Description 05/08/2021 Hospital Encounter Department of Paul Downs M.D. 200 [place] [phone] Dissociation Orthopedic Surgery Dario Noel M.D. [address] [place] [address] [place] [phone] Raeann Left in [place], [place] 200 [place] [address] Social History Tobacco Use Types Packs/Day Years [...] short-arm cast was applied by the castroom industrial electrical technician - The patient is nonweightbearing bearing [...]
--- OUTSIDE RECORDS SUMMARY | 2022-09-20 14:11 | XMS_ITS | Encounter Summary ---
:1965 Author Organization [facility] Address 200 [place] [address] Care Team Providers Name Role Phone Unavailable Primary Care Provider Unavailable Reason for Referral Outpatient (Routine) - Closed Specialty Diagnoses / Procedures Referred By Contact Refer red To Contact Diagnoses Painful Total Joint Arthroplasty Initial (HCC) Alfredo Herrera [place] Procedures US Major Joint Aspiration and or Injection Left O.P.A.-C. 200 [place] [phone] Referral ID Status Reason Start Date Expiration Date Visits Requ ested Visits Authorized [id number] Closed 09/07/2021 09/07/2022 1 1 Outpatient (Routine) - Closed Specialty Diagnoses / Procedures Referred By Contact Refer red To Contact Diagnoses Painful Total Joint Arthroplasty Initial (HCC) Alfredo Herrera [place] Procedures US Musculoskeletal Shoulder Left O.P.A.-C. 200 [place] [phone] Referral ID Status Reason Start Date Expiration Date Visits Requ ested Visits Authorized [id number] Closed 09/07/2021 09/07/2022 1 1 Reason for Visit Outpatient (Routine) - Closed Specialty Diagnoses / Procedures Referred By Contact Refer red To Contact Diagnoses Painful Total Joint Arthroplasty Initial (HCC) Alfredo Herrera [place] Procedures US Major Joint Aspiration and or Injection Left O.P.A.-C. [address] [place] [phone] Referral ID Status Reason Start Date Expiration Date Visits Requ ested Visits Authorized [id number] Closed 09/07/2021 09/07/2022 1 1 Encounter Details Date Type Department Care Team Description 09/25/2021 Hospital Encounter Department of Alfredo Herrera Painful Total Joint Radiology, Anh Gonzales Arthroplasty Initial Building, in [address] [place] [address] ([facility]) [facility] [phone] [place] [address] [place], [place] (Work) [phone] Social History Tobacco Use [...] you attend mu-ism or Patient refused 2021 caodaism services? Do [...] Differential, Body Fluid (09/25/2021 1:48 PM CDT) [facility] Method Time Signature Fluid Type Left 09/25/2021 DHPM Shoulder 4:50 PM CDT Gross Slightly 09/25/2021 DHPM Appearance bloody 4:50 PM CDT Total 92912 /mcL 09/25/2021 DH[facility] Nucleated 4:50 PM CDT Cells Comment: ----REFERENCE VALUE---- Synovial: <150 /mcL Peritoneal: <500 /mcL Pleural: <500 /mcL Pericardial: <500 /mcL ----ADDITIONAL INFORMATION---- This test has been modified from the man ufacturer's instructions. Its performance characteri stics were determined by [facility] in a manner co nsistent [...] seen. Reviewed by: Tech 09/25/2021 7:38 PM [facility] CDT Specimen Anatomical Collection Method Collection Time Receive d Time (Source) Location / / Volume Laterality Fluid 09/25/2021 1:48 PM 3:27 CDT PM CDT Alfredo Kamara LAB BODY FLUIDS AND STOOLS O MARY Performing Organization Address City/[facility] Phon e Number [facility] - [address] [place], [place] [address] [facility] [place] [address] [facility] [address] [facility] Acid Fast Smear For Mycobacterium (09/25/2021 1:48 PM CDT) [facility] gist Method Time Signature Acid Fast Smear Negative. 09/26/2021 DTL For Mycobacterium 2:58 PM CDT Specimen Anatomical Collection Method Collection Time Receive d Time (Source) Location / / Volume Laterality Synovial Fluid, 09/25/2021 1:48 PM 2020 3:42 Left Shoulder CDT PM CDT Comment: Specimen Source Site: Fluid Narrative [facility] - [facility] - 09/26/2021 2:58 PM CDT Fungal and Mycobacteria specimens plated for culture, volume inadequate for optimal recovery. Alfredo Kamara LAB MICROBIOLOGY - GENERAL O MARY Performing Organization Address City/[facility] Code Phon e Number [facility] - [address] [place], [place] [address] [facility] [place] [address] Gram Stain (09/25/2021 1:48 PM CDT) [facility] gist Method Time Signature Gram Stain [...] [facility] - [address] [place], [place] [address] [facility] [place] [address] Laboratories-[facility] [address] (ABNORMAL) Bacterial Culture, Aerobic + Susc (09/25/2021 1:48 PM CDT) Component Value Ref Test Analysis Performed At Patholo gist Range Method Time Signature Bacterial STAPHYLOCOCCUS EPIDERMIDIS 09/30/2021 DT L Culture, One [place] 2:35 PM CDT Aerobic + (A) Susc Comment: Semi-Urgent Result. Semi-Urgent This is a semi-urgent result [facility] - ([place]) [facility] S Specimen Anatomical Collection Method Collection Time Receive d Time (Source) Location / / Volume Laterality Fluid (Synovial 09/25/2021 1:48 PM 2020 3:42 Fluid, Left CDT PM CDT Shoulder) Comment: Specimen Source Site: Fluid Narrative [facility] - [facility] - 09/30/2021 [...] - GENERAL O MARY Performing Organization Address [facility] Phon e Number [facility] - 200 [place] [address] [address] Bacterial Culture, Anaerobic + Susc (09/25/2021 1:48 PM CDT) [facility] Method Time Signature Bacterial No growth 10/09/2021 DTL Culture, after 14 7:41 AM POWER CLEANER OPERATOR Anaerobic + days of Susc incubation. Specimen Anatomical Collection Method Collection Time Receive d Time (Source) Location / / Volume Laterality Fluid (Synovial 09/25/2021 1:48 PM 2020 3:42 Fluid, Left CDT PM CDT Shoulder) Comment: Specimen Source Site: Fluid Narrative [facility] - 10/09/2021 7:41 AM POWER CLEANER OPERATOR Fungal and Mycobacteria specimens plated for culture, volume inadequate for optimal recovery. Alfredo Kamara LAB MICROBIOLOGY - GENERAL O MARY Performing Organization Address [facility] Phon e Number [facility] - [address] (ABNORMAL) Broad Range Bacteria PCR+Sequencing (09/25/2021 1:48 PM CDT) Component Value Ref Test Analysis Performed At [facility] Range Method Time Signature Broad Range This test was developed and its performance characteri stics 10/06/2021 DTL Bacteria determined by [facility] in a manner consistent with 1:24 PM POWER CLEANER OPERATOR PCR+Sequencin CLIA requirements. This test has not been cleared or g approved by the U.S. Food and Drug Administration. (A) Broad Range STAPHYLOCOCCUS EPIDERMIDIS 10/06/2021 DTL Bacteria DNA detected 1:24 PM POWER CLEANER OPERATOR PCR+Sequencin (A) g Comment: Semi-Urgent Result. Semi-Urgent This is a semi-urgent result [facility] - () [facility] Specimen Anatomical Collection Method Collection Time Receive d Time (Source) Location / / Volume Laterality Fluid (Synovial 09/25/2021 1:48 PM 2020 3:42 Fluid, Left CDT PM CDT Shoulder) Comment: Specimen Source Site: Fluid Narrative [facility] - 10/06/2021 1:24 PM POWER CLEANER OPERATOR Fungal and Mycobacteria specimens plated for culture, volume inadequate for optimal recovery. Alfredo Kamara LAB MICROBIOLOGY - GENERAL O RDERABLES Performing Organization Address City/[facility]/ZIP [facility] Phon e Number [facility] - [address] [place] [address] Crystal Identification, Synovial Fluid (09/25/2021 1:48 PM CDT) [facility] Time Signature Crystal ID, None seen None seen 09/25/2021 [facility] Synovial Fl 4:56 PM CDT Reviewed by: Tech 09/25/2021 [facility] 4:56 PM CDT Specimen Anatomical Collection Method Collection Time Receive d Time (Source) Location / / Volume Laterality Fluid (Synovial 09/25/2021 1:48 PM 2020 3:27 Fluid, Left CDT PM CDT Shoulder) Alfredo Kamara LAB BODY FLUIDS AND STOOLS O RDERABLES Performing Organization Address City/[facility] Code Phon e Number [facility] - [address] [place] [address] Fungal Culture, Routine (09/25/2021 1:48 PM CDT) [facility] Method Time Signature Fungal No growth 10/20/2021 DT Culture, after 24 1:01 AM POWER CLEANER OPERATOR Routine days of incubation. Specimen Anatomical Collection Method Collection Time Receive d Time (Source) Location / / Volume Laterality Fluid (Synovial 09/25/2021 1:48 PM 2020 3:42 Fluid, Left CDT PM CDT Shoulder) Comment: Specimen Source Site: Fluid Narrative [facility] - 10/20/2021 1:01 AM POWER CLEANER OPERATOR Fungal and Mycobacteria specimens plated for culture, volume inadequate for optimal recovery. Alfredo Kamara LAB MICROBIOLOGY - GENERAL O MARY Performing Organization Address [facility] Phon e Number [facility] - [address] Mycobacterial Culture (09/25/2021 1:48 PM CDT) [facility] gist Method Time Signature Mycobacterial No growth 11/07/2021 DTL Culture after 42 1:03 AM POWER CLEANER OPERATOR days of incubation . Specimen Anatomical Collection Method Collection Time Receive d Time (Source) Location / / Volume Laterality Fluid (Synovial 09/25/2021 1:48 PM 2020 3:42 Fluid, Left CDT PM CDT Shoulder) Comment: Specimen Source Site: Fluid Narrative [facility] - [facility] - 11/07/2021 1:03 AM POWER CLEANER OPERATOR Fungal and Mycobacteria specimens plated for culture, volume inadequate for optimal recovery. Alfredo Kamara LAB MICROBIOLOGY - GENERAL O MARY Performing Organization Address [facility] Phon e Number [facility] - [address] documented in this encounter Visit Diagnoses [...]
--- OUTSIDE RECORDS SUMMARY | 2022-09-20 14:11 | XMS_ITS | Encounter Summary ---
:1965 Author Organization [facility] Address [address] [place] [address] Care Team Providers Name Role Phone Unavailable Primary Care Provider Unavailable Reason for Visit Reason Comments Med Refill Encounter Details Date Type Department Care Team Description 06/04/2021 Refill Department of Orthopedic Pulos, Dario Alejo M.D. Med Refill Surgery in [address] [address] [place] [address] [place] [address] [phone] Social History Tobacco Use Types Packs/Day Years [...] you attend scientology or Patient refused 2021 adventism services? Do [...]
--- OUTSIDE RECORDS SUMMARY | 2022-09-20 14:11 | XMS_ITS | Encounter Summary ---
:1965 Author Organization [facility] Address [address] [place] [address] Care Team Providers Name Role Phone Unavailable Primary Care Provider Unavailable Reason for Visit Reason Comments Pain Appointment Request (Routine) - Closed Specialty Diagnoses / Procedures Referred By Contact Refer red To Contact Orthopedic Surgery Diagnoses Arthroplasty Total Shoulder Replacement Status Post Left David Cohn M.D. [address] , [address] [place] [address] Referral ID Status Reason Start Date Expiration Date Visits Requ ested Visits Authorized [id number] Closed 09/04/2021 09/04/2022 1 1 Encounter Details Date Type Department Care Team Description 09/23/2021 Comprehensive Visit Department of Cyrus Polk Pain Shoulder Left Orthopedic Surgery Lilian Souza (Primary Dx) in [place], [address] [place] [address] [place] [phone] [place], [place] [phone] (Work) [phone] Social History Tobacco Use Types Packs/Day Years [...] you attend anabaptism or Patient refused 2021 muslim services? Do you belong to any clubs or No 05/17/2022 organizations such as anabaptism groups, unions, fraSellaround or athletic groups, or school groups? How [...]
--- OUTSIDE RECORDS SUMMARY | 2022-09-20 14:11 | XMS_ITS | Encounter Summary ---
:1965 Author Organization [facility] Address [address] [place] [address] Care Team Providers Name Role Phone Unavailable Primary Care Provider Unavailable Reason for Referral Outpatient (Routine) - Closed Specialty Diagnoses / Procedures Referred By Contact Refer red To Contact Diagnoses Painful Total Joint Arthroplasty Initial (HCC) Alfredo Herrera [place] Procedures US Major Joint Aspiration and or Injection Left O.P.A.-C. 200 [place] [address] Referral ID Status Reason Start Date Expiration Date Visits Requ ested Visits Authorized [id number] Closed 09/07/2021 09/07/2022 1 1 Outpatient (Routine) - Closed Specialty Diagnoses / Procedures Referred By Contact Refer red To Contact Diagnoses Painful Total Joint Arthroplasty Initial (HCC) Alfredo Herrera [place] Procedures US Musculoskeletal Shoulder Left O.P.A.-C. 200 [place] [address] Referral ID Status Reason Start Date Expiration Date Visits Requ ested Visits Authorized [id number] Closed 09/07/2021 09/07/2022 1 1 MRI/CAT/PET Scan (Routine) - Closed Specialty Diagnoses / Procedures Referred By Contact Refer red To Contact Radiology Diagnoses Painful Total Joint Arthroplasty Initial (HCC) Alfredo Herrera [place] Procedures CT Shoulder Left without IV Contrast O.Kevin. [address] [place] [address] Referral ID Status Reason Start Date Expiration Date Visits Requ ested Visits Authorized [id number] Closed 09/07/2021 09/07/2022 1 1 Reason for Visit Reason Comments Pre-visit Testing Orders L shldr - prev. TSA Encounter Details Date Type Department Care Team Description 09/07/2021 Clinical Communication Department of Jam, Pre- visit Testing Orthopedic Surgery Cyrus Souza M.D. Orders (L shldr - in [place], [address] [facility] prev. TSA) [place], [place] [address] [facility] [address] [place], [place] [phone] (Work) [phone] Social History Tobacco Use Types Packs/Day Years [...] you attend catholic or Patient refused 2021 mandaeism services? Do [...] PROCEDURES Mycobacterial Culture (09/25/2021 1:48 PM CDT) Modebo Method Time Signature Mycobacterial No growth 11/07/2021 DTL Culture after 42 1:03 AM BILLET HEATER OPERATOR days of incubation . Specimen Anatomical Collection Method Collection Time Receive d Time (Source) Location / / Volume Laterality Fluid (Synovial 09/25/2021 1:48 PM 2020 3:42 Fluid, Left CDT PM CDT Shoulder) Comment: Specimen Source Site: Fluid Narrative [facility] - 11/07/2021 1:03 AM BILLET HEATER OPERATOR Fungal and Mycobacteria specimens plated for culture, volume inadequate for optimal recovery. Alfredo Kamara LAB MICROBIOLOGY - GENERAL O RDERABLES Performing Organization Address City/State/ZIP Code Phon e Number [facility] - [address] [place], [place] [address] [facility] [place] [place] [address] [facility] [address] [facility] Fungal Culture, Routine (09/25/2021 1:48 PM CDT) Modebo Method Time Signature Fungal No growth 10/20/2021 DTL Culture, after 24 1:01 AM BILLET HEATER OPERATOR Routine days of incubation. Specimen Anatomical Collection Method Collection Time Receive d Time (Source) Location / / Volume Laterality Fluid (Synovial 09/25/2021 1:48 PM 2020 3:42 Fluid, Left CDT PM CDT Shoulder) Comment: Specimen Source Site: Fluid Narrative [facility] - 10/20/2021 1:01 AM BILLET HEATER OPERATOR Fungal and Mycobacteria specimens plated for culture, volume inadequate for optimal recovery. Alfredo Kamara LAB MICROBIOLOGY - GENERAL O RDERABLES Performing Organization Address [facility] Phon e Number [facility] - [address] [place] [address] [facility] [place] [address] Crystal Identification, Synovial Fluid (09/25/2021 1:48 PM CDT) Analysis Performed At [facility] Time Signature Crystal ID, None seen None seen 09/25/2021 [facility] Synovial Fl 4:56 PM CDT Reviewed by: Tech 09/25/2021 [facility] 4:56 PM CDT Specimen Anatomical Collection Method Collection Time Receive d Time (Source) Location / / Volume Laterality Fluid (Synovial 09/25/2021 1:48 PM 2020 3:27 Fluid, Left CDT PM CDT Shoulder) Alfredo Kamara LAB BODY FLUIDS AND STOOLS O RDERABLES Performing Organization Address City/[facility] Phon e Number [facility] - [address] [place] [address] [place] [address] (ABNORMAL) Broad Range Bacteria PCR+Sequencing (09/25/2021 1:48 PM CDT) Component Value Ref Test Analysis Performed At [employer] gist Range Method Time Signature Broad Range This test was developed and its performance characteri stics 10/06/2021 DTL Bacteria determined by [facility] in a manner consistent with 1:24 PM BILLET HEATER OPERATOR PCR+Sequencin CLIA requirements. This test has not been cleared or g approved by the U.S. Food and Drug Administration. (A) Broad Range STAPHYLOCOCCUS EPIDERMIDIS 10/06/2021 DTL Bacteria DNA detected 1:24 PM BILLET HEATER OPERATOR PCR+Sequencin (A) g Comment: Semi-Urgent Result. Semi-Urgent This is a semi-urgent result [facility] - () [facility] Specimen Anatomical Collection Method Collection Time Receive d Time (Source) Location / / Volume Laterality Fluid (Synovial 09/25/2021 1:48 PM 2020 3:42 Fluid, Left CDT PM CDT Shoulder) Comment: Specimen Source Site: Fluid Narrative [facility] - 10/06/2021 1:24 PM BILLET HEATER OPERATOR Fungal and Mycobacteria specimens plated for culture, volume inadequate for optimal recovery. Alfredo Kamara LAB MICROBIOLOGY - GENERAL O MARY Performing Organization Address [facility] Phon e Number [facility] - [address] Bacterial Culture, Anaerobic + Susc (09/25/2021 1:48 PM CDT) Modebo Method Time Signature Bacterial No growth 10/09/2021 DTL Culture, after 14 7:41 AM BILLET HEATER OPERATOR Anaerobic + days of Susc incubation. Specimen Anatomical Collection Method Collection Time Receive d Time (Source) Location / / Volume Laterality Fluid (Synovial 09/25/2021 1:48 PM 2020 3:42 Fluid, Left CDT PM CDT Shoulder) Comment: Specimen Source Site: Fluid Narrative [facility] - 10/09/2021 7:41 AM BILLET HEATER OPERATOR Fungal and Mycobacteria specimens plated for culture, volume inadequate for optimal recovery. Alfredo Kamara LAB MICROBIOLOGY - GENERAL O MARY Performing Organization Address City/[facility]/ZIP [facility] Phon e Number [facility] - [address] (ABNORMAL) Bacterial Culture, Aerobic + Susc (09/25/2021 1:48 PM CDT) Component Value Ref Test Analysis Performed At Modebo Range Method Time Signature Bacterial STAPHYLOCOCCUS EPIDERMIDIS 09/30/2021 DT L Culture, One [place] 2:35 PM CDT Aerobic + (A) Susc Comment: Semi-Urgent Result. Semi-Urgent This is a semi-urgent result [facility] - () [facility] Specimen Anatomical Collection Method Collection Time Receive d Time (Source) Location / / Volume Laterality Fluid (Synovial 09/25/2021 1:48 PM 2020 3:42 Fluid, Left CDT PM CDT Shoulder) Comment: Specimen Source Site: Fluid Narrative [facility] - [facility] - 09/30/2021 2:35 PM CDT Fungal and [...] [facility] [address] [place], [place] [address] [facility] [place] [place] [address] [facility] [address] Gram Stain (09/25/2021 1:48 PM CDT) [facility] Method Time Signature Gram Stain No organisms [...] [facility] - [address] [place], [place] [address] [facility] [place] [address] [facility] [address] Shoulder [...] visualized postoperative de los santos es of [place] gastric bypass. Tiny nonobstructing left renal calculus. [...] (ABNORMAL) Sedimentation Rate (09/23/2021 9:07 AM CDT) [employer] gist Method Time Signature Sedimentation 31 (H) 2 - 22 09/23/2021 DTL Rate, B mm/h 10:46 AM CDT Specimen Anatomical Collection Method Collection Time Receive d Time (Source) Location / / Volume Laterality Blood (Blood, 09/23/2021 9:07 AM 09/23/20 21 9:30 Venous) CDT AM CDT Alfredo Kamara LAB BLOOD ADD-ON Performing Organization Address [facility] Phon e Number [facility] - 200 [place], [place] [address] [facility] [place] [place] [address] CRP (C-Reactive Protein) (09/23/2021 9:07 AM CDT) P athologist Signature C-Reactive <3.0 <=8.0 mg/L 09/23/2021 DTL Protein (CRP), 10:30 AM CDT S Specimen Anatomical Collection Method Collection Time Receive d Time (Source) Location / / Volume Laterality Blood (Blood, 09/23/2021 9:07 AM 09/23/20 21 9:57 Venous) CDT AM CDT Alfredo Kamara LAB BLOOD ADD-ON Performing Organization Address [facility] Phon e Number [facility] - 200 [place], [place] [address] [place] [address] (ABNORMAL) CBC with Differential, Blood (09/23/2021 [...] [facility] - [address] [place], [place] [address] [facility] [place] [address] [facility] [address] documented [...]
--- OUTSIDE RECORDS SUMMARY | 2022-09-20 14:11 | XMS_ITS | Encounter Summary ---
:1965 Author Organization [facility] Address [address] [place] [address] Care Team Providers Name Role Phone Unavailable Primary Care Provider Unavailable Reason for Visit Reason Comments Nicotine Dependence Encounter Details Date Type Department Care Team Description 07/24/2021 Clinical Communication Department of [facility], Carolyn Mccarthy cotine Dependence Nicotine M.S., Dependence, C.T.T.S., [facility], L.P.C.C. in [place], [address] [place] [address] [place] [address] [place], [place] [phone] (Work) [phone] Social History Tobacco Use Types Packs/Day Years [...]
--- OUTSIDE RECORDS SUMMARY | 2022-09-20 14:12 | XMS_ITS | Encounter Summary ---
:[address] [facility] Address [address] [place] [address] Care Team Providers Name Role Phone Unavailable Primary Care Provider Unavailable Reason for Visit Reason Comments Vertigo and vision problems [facility] Encounter Details Date Type Department Care Team Description 02/18/2021 Clinical Communication Department of [place], Robert mendosa and vision Neurology jimmy Celaya M.D. problems ([facility]) [place], [facility] [address] [place], [place] [address] [place] [address] [place], [place] [phone] (Work) [phone] Social History Tobacco Use Types Packs/Day Years [...] you attend advent or Patient refused 2021 samaritan services? Do [...]
--- OUTSIDE RECORDS SUMMARY | 2022-09-20 14:12 | XMS_ITS | Encounter Summary ---
:1965 Author Organization [facility] Address [address] [place] [address] Care Team Providers Name Role Phone Unavailable Primary Care Provider Unavailable Reason for Visit Reason Comments Follow-up [facility] Patient Encounter Details Date Type Department Care Team Description 02/25/2021 Clinical Communication [facility] Neurology jimmy Celaya M.D. Patient) [place], [facility] [place], [place] [address] [place] [address] [place], [place] [phone] (Work) [phone] Social History Tobacco Use Types Packs/Day Years [...] you attend methodist or Patient refused 2021 christianity services? Do [...] so I advised she report to the [facility] as soon as possible to be [...]
--- OUTSIDE RECORDS SUMMARY | 2022-09-20 14:12 | XMS_ITS | Encounter Summary ---
:1965 Author Organization [facility] Address [address] [place] [address] Care Team Providers Name Role Phone Unavailable Primary Care Provider Unavailable Reason for Visit Reason Comments Communication Encounter Details Date Type Department Care Team Description 02/19/2021 Clinical Communication Department of Rossy Benjamin Neurologic Surgery in [place] Jang, [place], [place] Ph.D. [address] [place] [address] 200 [place] [address] [phone] Social History Tobacco Use Types Packs/Day Years [...] you attend hinduism or Patient refused 2021 temple services? Do [...]
--- OUTSIDE RECORDS SUMMARY | 2022-09-20 14:12 | XMS_ITS | Encounter Summary ---
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 [facility] Procedures CT Head Neck Angiogram with IV Contrast [address] [place] [address] Referral ID Status Reason Start Date Expiration Date Visits Requ ested Visits Authorized [id number] Closed 02/17/2021 02/17/2022 1 1 Encounter Details Date Type Department Care Team Description 03/12/2021 Hospital Encounter Department of Jeannette Cote ebral Infarction Radiology, Severiano Souza M.D. Due To Embolism Building, in [address] [place], [place] Artery (HCC) [place] [address] [phone] [place], [place] (Work) [address] [phone] Social History Tobacco Use Types Packs/Day Years [...] you attend worship or Patient refused 2021 gnosticist services? Do [...] N/A C omputed Tomography, Computed Neuroradiology [facility], Neuroradiology T omography [facility] Specimen (Source) Anatomical Collection Method [...] ane urysms. 3. 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 Otherwise gambell of Wi llis is intact. 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 Otherwise gambell of Wi llis is intact. Dolichoectasia of [...] ane urysms. 3. 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 Jeannette NIELSON [...]
--- OUTSIDE RECORDS SUMMARY | 2022-09-20 14:12 | XMS_ITS | Encounter Summary ---
:1965 Author Organization [facility] Address [address] [place] [address] Care Team Providers Name Role Phone Unavailable Primary Care Provider Unavailable Encounter Details Date Type Department Care Team Description 03/11/2021 Clinical Communication Department of Ana Segura Orthopedic Surgery in [place], [place] [address] [place] [phone] Social History Tobacco Use Types Packs/Day Years [...] you attend buddhist or Patient refused 2021 holiness services? Do [...] Patient would like to be seen in [place]. Referral line to [place] provided to angela batista. Patient aware she will call for apptointment. Telephone Encounter - Jerica Gee L.P.N. - 03/13/2021 9:09 AM CDT Left message to call clinic back. Needs to see a hand surgeon. Telephone Encounter - Christal Abraham L.P.N. - 03/12/2021 3:21 PM CDT Left message for patient to call back. She can contact [place], [place], or sarath frye if she choses. Telephone Encounter - Clemente Schofield M.D. - 03/12/2021 11:23 AM CDT She should see a hand surgeon Telephone Encounter - Esperanza Stratton - 03/11/2021 9:33 AM CDT Reason for Communication: Patient is calling in stating that she is being referred to be seen for a brake in her LEFT hand. Patient is stating that [facility] in [facility] is requesting for patient to be seen by our orthopedic department. Patient is wanting to be seen in [place]. Unable to find any encounters regarding a [...]
--- OUTSIDE RECORDS SUMMARY | 2022-09-20 14:12 | XMS_ITS | Encounter Summary ---
:1965 Author Organization [facility] Address [address] [place] [address] Care Team Providers Name Role Phone Unavailable Primary Care Provider Unavailable Reason for Referral MRI/CAT/PET Scan (Routine) - Closed Specialty Diagnoses / Procedures Referred By Contact Refer red To Contact Radiology Diagnoses Pain Wrist Left Michael Noble Jr., [facility] Procedures MR Wrist Left without IV Contrast P.A.-C. 200 [place], [place] [address] Referral ID Status Reason Start Date Expiration Date Visits Requ ested Visits Authorized [id number] Closed 03/17/2021 03/17/2022 1 1 Reason for Visit MRI/CAT/PET Scan (Routine) - Closed Specialty Diagnoses / Procedures Referred By Contact Refer red To Contact Radiology Diagnoses Pain Wrist Left Michael Noble Jr., [facility] Procedures MR Wrist Left without IV Contrast P.A.-C. [address] [place] [phone] Referral ID Status Reason Start Date Expiration Date Visits Requ ested Visits Authorized [id number] Closed 03/17/2021 03/17/2022 1 1 Encounter Details Date Type Department Care Team Description 03/24/2021 Hospital Encounter Department of Michael Noble Wrist Left Radiology, Camelia Perez Jr..[facility].-[facility], in 200 [place], [place] [address] [facility] [address] [place], [place] [phone] (Work) [phone] Social History Tobacco Use Types Packs/Day Years [...] you attend cheondoism or Patient refused 2021 yazidi services? Do [...]
--- OUTSIDE RECORDS SUMMARY | 2022-09-20 14:12 | XMS_ITS | Encounter Summary ---
:[address] [facility] Address [address] [place] [address] Care Team Providers Name Role Phone Unavailable Primary Care Provider Unavailable Reason for Visit Reason Comments Pre-visit Intake Encounter Details Date Type Department Care Team Description 04/15/2021 Clinical Communication Department of Robert Diehl e-visit Intake Neurology in Lilian Celaya [place], [facility] [place], [place] [address] [place] [address] [place], [place] [phone] (Work) [phone] Social History Tobacco Use Types Packs/Day Years [...] you attend shinto or Patient refused 2021 temple services? Do [...]
--- OUTSIDE RECORDS SUMMARY | 2022-09-20 14:12 | XMS_ITS | Encounter Summary ---
:[address] [facility] Address [address] [place] [address] Care Team Providers Name Role Phone Unavailable Primary Care Provider Unavailable Reason for Visit Reason Comments Pre-visit Intake Encounter Details Date Type Department Care Team Description 03/11/2021 Clinical Communication Department of [facility], Pre- visit Intake Neurologic Surgery Lilian Jang, in [place], Ph.D. [address] [place] [phone] [phone] Social History Tobacco Use Types Packs/Day Years [...] you attend shinto or Patient refused 2021 hindu services? Do [...]
--- OUTSIDE RECORDS SUMMARY | 2022-09-20 14:12 | XMS_ITS | Encounter Summary ---
:1965 Author Organization [facility] Address [address] [place] [address] Care Team Providers Name Role Phone Unavailable Primary Care Provider Unavailable Reason for Referral Outpatient (Routine) - Closed Specialty Diagnoses / Procedures Referred By Contact Refer red To Contact Diagnoses Dissociation Scapholunate Left Michael Downs M.D. [facility] Procedures ORS Cast Room Visit 200 [place] [address] Referral ID Status Reason Start Date Expiration Date Visits Requ ested Visits Authorized [id number] Closed 03/24/2021 03/24/2022 1 1 Reason for Visit Reason Comments Follow-up Outpatient (Routine) - Closed Specialty Diagnoses / Procedures Referred By Contact Refer red To Contact Diagnoses Dissociation Scapholunate Left Michael Downs M.D. [facility] Procedures ORS Cast Room Visit 200 [place], [place] [address] Referral ID Status Reason Start Date Expiration Date Visits Requ ested Visits Authorized [id number] Closed 03/24/2021 03/24/2022 1 1 Encounter Details Date Type Department Care Team Description 03/24/2021 Hospital Encounter Department of Paul Downs M.D. 200 [place] [phone] Dissociation Orthopedic Surgery Dario Noel M.D. [address] [place] [address] [place] [address] Raeann Left in [place], [place] 200 [place] [address] Social History Tobacco Use Types Packs/Day Years [...] you attend tenriism or Patient refused 2021 gnosticism services? Do [...] with 70/60 degrees on the contralateral side. Card Filer strength of 10 kg compared to 23 [...] short-arm cast was applied by the castroom general maintenance technician - The patient is nonweightbearing [...] 70/60 degrees on the contr alateral side. ??Card Filer strength of 10 kg compared to 23 [...] ??The clenched fist view was obtained of MitrAssist hands, but unfortunately is difficult to assess [...] A short-arm cast was applied by the [facility] general maintenance technician - The patient is nonweightbearing [...]
--- OUTSIDE RECORDS SUMMARY | 2022-09-20 14:12 | XMS_ITS | Encounter Summary ---
:1965 Author Organization [facility] Address [address] [place] [address] Care Team Providers Name Role Phone Unavailable Primary Care Provider Unavailable Reason for Visit Reason Comments Nicotine Dependence Encounter Details Date Type Department Care Team Description 03/10/2021 Clinical Communication Department of [facility], Carolyn Mccarthy cotine Dependence Nicotine M.S., Dependence, C.T.T.S., [facility], L.P.C.C. in [address] [place] [phone] [place], [place] [phone] (Work) [phone] Social History Tobacco Use Types Packs/Day Years [...] you attend protestant or Patient refused 2021 jew services? Do [...]
--- OUTSIDE RECORDS SUMMARY | 2022-09-20 14:12 | XMS_ITS | Encounter Summary ---
:1965 Author Organization [facility] Address [address] [place] [address] Care Team Providers Name Role Phone Unavailable Primary Care Provider Unavailable Reason for Visit Outpatient (Routine) - Closed Specialty Diagnoses / Procedures Referred By Contact Refer red To Contact Neurological Surgery Jeannette Cote [place] [address] [place] M.D. [address] [place] [address] Referral ID Status Reason Start Date Expiration Date Visits Requ ested Visits Authorized [id number] Closed 02/17/2021 02/17/2022 1 1 Encounter Details Date Type Department Care Team Description 03/12/2021 Office Visit Department of Gonzalez Benjamin Debra tebral Neurologic Surgery in [place] Jang, Cinthya castorena ([facility]) (Primary [place], [place] Ph.D. Dx) [address] [place] [address] [place] [phone] Social History Tobacco Use Types Packs/Day [...] you attend alevism or Patient refused 2021 jew services? Do you belong to any clubs or No 05/17/2022 organizations such as alevism groups, unions, fraParastructure or athletic groups, or school groups? How [...]
--- OUTSIDE RECORDS SUMMARY | 2022-09-20 14:12 | XMS_ITS | Encounter Summary ---
:1965 Author Organization [facility] Address [address] [place] [address] Care Team Providers Name Role Phone Unavailable Primary Care Provider Unavailable Reason for Referral Outpatient (Routine) - Closed Specialty Diagnoses / Procedures Referred By Contact Refer red To Contact Diagnoses Dissociation Scapholunate Left Michael Downs M.D. [facility] Procedures ORS Cast Room Visit [address] [place] [address] Referral ID Status Reason Start Date Expiration Date Visits Requ ested Visits Authorized [id number] Closed 03/24/2021 03/24/2022 1 1 Outpatient (Routine) - Closed Specialty Diagnoses / Procedures Referred By Contact Refer red To Contact Diagnoses Dissociation Scapholunate Left Michael Downs M.D. [facility] Procedures ORS Cast Room Visit [address] [place] [address] Referral ID Status Reason Start Date Expiration Date Visits Requ ested Visits Authorized [id number] Closed 03/24/2021 03/24/2022 1 1 Reason for Visit Reason Comments Pain Appointment Request (Routine) - Closed Specialty Diagnoses / Procedures Referred By Contact Refer red To Contact Orthopedic Surgery Diagnoses Fracture Wrist Hand Closed Initial Referral ID Status Reason Start Date Expiration Date Visits Requ ested Visits Authorized [id number] Closed 03/16/2021 03/16/2022 1 1 Encounter Details Date Type Department Care Team Description 03/24/2021 Admin Visit Department of Dario Noel Dissocia tion Orthopedic Surgery in M.D. Scapholunate Left [place], [place] [address] [facility] (Primary Dx) [address] [place] [phone] Social History Tobacco Use Types Packs/Day Years [...] you attend restorationist or Patient refused 2021 roman catholic services? [...] 70/60 degrees on the contr alateral side. ??Training Development Specialist strength of 10 kg compared to [...] cast was applied by the kevin garcia science technicians - The patient is nonweightbearing bearin g [...]
--- OUTSIDE RECORDS SUMMARY | 2022-09-20 14:12 | XMS_ITS | Encounter Summary ---
:1965 Author Organization [facility] Address [address] [place] [address] Care Team Providers Name Role Phone Unavailable Primary Care Provider Unavailable Reason for Visit Reason Comments Post Hospital Follow-up Encounter Details Date Type Department Care Team Description 02/19/2021 Clinical Communication Department of [facility] Neurology in Monica Alvarado R.N. Follow-up [place], [place] [address] [place] [phone] Social History Tobacco Use Types Packs/Day [...] you attend adventist or Patient refused 2021 gnosticist services? Do [...] reports she has not yet picked up [id number] ASA daily and 80 mg Atorvastatin at [...]
--- OUTSIDE RECORDS SUMMARY | 2022-09-20 14:12 | XMS_ITS | Encounter Summary ---
:1965 Author Organization [facility] Address [address] [place] [address] Care Team Providers Name Role Phone Unavailable Primary Care Provider Unavailable Reason for Visit Reason Comments Pre-scheduling Questionnaire Hand Pre-Scheduling Qu estionnaire Encounter Details Date Type Department Care Team Description 03/16/2021 Clinical Department of Prescheduling, Pre-scheduli ng Communication Orthopedic Surgery Provider Question elizabeth ( in [place], Hand Pre-Sched [facility] Questionnaire) [address] [place] [phone] Social History Tobacco Use Types Packs/Day Years [...] you attend sabianism or Patient refused 2021 rastafari services? Do [...]
--- OUTSIDE RECORDS SUMMARY | 2022-09-20 14:12 | XMS_ITS | Encounter Summary ---
:1965 Author Organization [facility] Address [address] [place] [address] Care Team Providers Name Role Phone Unavailable Primary Care Provider Unavailable Reason for Referral Outpatient (Routine) - Closed Specialty Diagnoses / Procedures Referred By Contact Refer red To Contact Diagnoses Pain Wrist Left Michael Noble Jr., [facility] [place] [facility] Procedures PM Device interrogation (clinic) P.A.-C. 200 [place] [address] Referral ID Status Reason Start Date Expiration Date Visits Requ ested Visits Authorized [id number] Closed 03/17/2021 03/17/2022 1 1 RI/CAT/PET Scan (Routine) - Closed Specialty Diagnoses / Procedures Referred By Contact Refer red To Contact Radiology Diagnoses Pain Wrist Left Michael Noble Jr., [facility] [place] [facility] Procedures MR Wrist Left without IV Contrast P.A.-C. [address] [place], [place] [address] Referral ID Status Reason Start Date Expiration Date Visits Requ ested Visits Authorized [id number] Closed 03/17/2021 03/17/2022 1 1 Encounter Details Date Type Department Care Team Description 03/17/2021 Orders Only Department of Michalik, Michael Pain Wris t Left Orthopedic Surgery in Tona Patel Jr. (Primary Dx) [place], [place] 200 [facility] [address] [place] [phone] Social History Tobacco Use Types Packs/Day Years [...] you attend adventism or Patient refused 2021 anabaptism services? Do [...]
--- OUTSIDE RECORDS SUMMARY | 2022-09-20 14:12 | XMS_ITS | Encounter Summary ---
:1965 Author Organization [facility] Address [address] [place] [address] Care Team Providers Name Role Phone Unavailable Primary Care Provider Unavailable Reason for Referral Outpatient (Routine) - Closed Specialty Diagnoses / Procedures Referred By Contact Refer red To Contact Neurological Surgery [facility] [place] [address] [place] [address] Referral ID Status Reason Start Date Expiration Date Visits Requ ested Visits Authorized [id number] Closed 02/17/2021 02/17/2022 1 1 Scheduling Instructions Please schedule with Chief A Neurosurger y Service (Dr. Suhail Benjamin). 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 [facility] Procedures CT Head Neck Angiogram with IV Contrast [address] [place] [address] Referral ID Status Reason Start Date Expiration Date Visits Requ ested Visits Authorized [id number] Closed 02/17/2021 02/17/2022 1 1 Encounter Details Date Type Department Care Team Description 02/17/2021 Orders Only Department of Jeannette Cote Cerebral Infarction Neurologic Surgery in [place]ian Souza Due To Embolism Right [place], [place] [address] [facility] Vertebral Artery (HCC) [address] [place], [place] (Primary Dx) [place] [phone] Social History Tobacco Use Types Packs/Day Years [...] you attend shinto or Patient refused 2021 caodaism services? Do [...] Neuroradiology ARZ LOS, Neuroradiology T omography [facility] Specimen (Source) Anatomical Collection [...] urysms. 3. 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 Otherwise [place] is intact. Dolichoectasia of [...] 2 mm left supraclinoid aneurysm (557). Otherwise [place] is intact. Dolichoectasia of [...] urysms. 3. 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 Jeannette [...]
--- OUTSIDE RECORDS SUMMARY | 2022-09-20 14:13 | XMS_ITS | Encounter Summary ---
:1965 Author Organization [facility] Address [address] [place] [address] Care Team Providers Name Role Phone Unavailable Primary Care Provider Unavailable Encounter Details Date Type Department Care Team Description 02/11/2021 Ancillary Procedure Department of Radiology [place] Vega in [facility] raúl Quintana 200 [facility] 200 [place] [phone] (Wo rk) Social History Tobacco Use Types [...] you attend zoroastrianism or Patient refused 2021 restorationist services? Do [...] bilateral thalami (series 3 image 36), bilateral ABRADING MACHINE TENDER regio n (left greater than right, [...] bilateral thalami (series 3 image 36), bilateral ABRADING MACHINE TENDER regio n (left greater than right, [...] bilateral thalami (series 3 image 36), bilateral ABRADING MACHINE TENDER regio n (left greater than right, [...] bilateral thalami (series 3 image 36), bilateral ABRADING MACHINE TENDER regio n (left greater than right, [...] bilateral thalami (series 3 image 36), bilateral ABRADING MACHINE TENDER regio n (left greater than right, [...] bilateral thalami (series 3 image 36), bilateral ABRADING MACHINE TENDER regio n (left greater than right, [...]
--- OUTSIDE RECORDS SUMMARY | 2022-09-20 14:13 | XMS_ITS | Encounter Summary ---
:1965 Author Organization [facility] Address [address] [place] [address] Care Team Providers Name Role Phone Unavailable Primary Care Provider Unavailable Reason for Referral Outpatient (Routine) - Closed Specialty Diagnoses / Procedures Referred By Contact Refer red To Contact Home Health Care Diagnoses Stroke (HCC) Chronic Pain Syndrome Stroke Cerebrovascular Accident Personal History Ric Quinn M.D., M.S. [address] [place] [phone] Referral ID Status Reason Start Date Expiration Date Visits Requ ested Visits Authorized [id number] Closed 02/03/2021 02/03/2022 1 1 ONNEL WORKER Encounter Details Date Type Department Care Team Description 01/31/2021 - Hospital Encounter [facility] [place], Stroke (H CC) (Primary Dx); [facility]; [facility], [address] [place] [address] Stroke Cerebrovascular Accident Personal History [facility], [facility] [phone] floor [phone] [place] [address] (Work) [place], [place] [phone] (Fax) [phone] Social History Tobacco Use Types Packs/Day Years [...] you attend confucianist or Patient refused 2021 muslim services? Do [...] Comments Blood Pressure 133/71 02/03/2021 5:15 PM PERSONNEL WORKER Pulse 92 02/03/2021 5:15 PM PERSONNEL WORKER Temperature 36.5 ??C (97.7 ??F) 02/03/2021 5:15 PM PERSONNEL WORKER Respiratory Rate 17 02/03/2021 5:15 PM PERSONNEL WORKER Oxygen Saturation 97% 02/03/2021 5:15 PM PERSONNEL WORKER Inhaled Oxygen Concentration - - Weight 78.8 kg (173 lb 11.6 oz) 01/31/2021 9:39 PM PERSONNEL WORKER Height 152.4 cm (5') 01/31/2021 9:39 PM PERSONNEL WORKER Body Mass Index 33.93 01/31/2021 9:39 PM PERSONNEL WORKER documented in this encounter Discharge Summaries Malcom Torres M.D. - 02/03/2021 2:24 PM CST DISCHARGE SUMMARY BRIEF OVERVIEW Hospital: [facility] Discharge Provider: Nan Rios M.D. Primary Team: [facility] Neurology Stroke and Cerebrovascular Disease No primary [...] artery dissection. Shewas subsequently admitted directly to [facility] Neurology Stroke service for further workup [...] ??C, temperature source Oral, resp. rate 17, fbalcr108.4 cm, weight 78.8 kg, SpO2 94 %. [...] were provided to the patient and caregiver(s). ONNEL WORKER documented in this encounter Discharge Instructions Discharge InstructionsLaquita Raines - 02/02/2021 7:23 AM CST You were discharge from the Neurology Stroke Service. Please Identify this service name if you call with questions after your hospitalization. ONNEL WORKER Discharge Instr - ActivityLeonides Liang PBrittonT. - 02/02/2021 1:13 PM PERSONNEL WORKER Physical Therapy Discharge Summary MOBILITY RESTRICTIONS/PRECAUTIONS: Fall [...] 02/02/2021 by Leonides Liang P.T. Contact information: [facility], [address] Melissa, ONNEL WORKER AttachmentsThe following attachments cannot be sent through Care Everywhere. 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 - 02/03/2021 1:57 PM CST No PT intervention today as patient was at an MRI this morning, now stating that she has just gone for a walk and plans are for dc to home with intermittent assist from her son. Helen Greer, PT ONNEL WORKER Catalina Panchal, R.N. - 02/03/2021 1:49 PM CST Patient discussed at Stroke Multidisciplinary Rounds. Plan for the day: Case Management Following, PT/OT, Medication Management, MRI/MRA Plan for the Stay: Stroke w/u Discharge barriers: Inpatient Needs Recommended discharge disposition: [facility] w/[facility] ONNEL WORKER Nan Rios M.D. - 02/03/2021 10:36 AM [...] pain syndrome, fibromyalgia, and nicotine use disorder. ONNEL WORKER Leonides Kumar M.D. - 02/03/2021 7:09 AM [...] and diagnostics from admission. ASSESSMENT / PLAN .??Angie Bender??is a 55 y.o.??female??with PMH including gastric [...] status: Prior Disposition: Home Plan discussed with [facility] Neurology Stroke and Cerebrovascular Disease X Ray Inspector, Dr. Rios. Please page the [facility] Neurology Stroke and Cerebrovascular Disease service pager at [phone] with any questions. Leonides Kumar M.D. ONNEL WORKER Makenzie Figueredo O.T.Katarina - 02/02/2021 3:24 PM [...] home to ensure her safety. From the Lumber Carrier's perspective, the patient is not an inpatient [...] Treatment Time (min): 32 min MILA Cardoza ONNEL WORKER Catalina Panchal RBetsy - 02/02/2021 2:31 PM CST Patient discussed at Stroke Multidisciplinary Rounds. Plan for the day: MRI, Case Management Consult, PT/OT, Medication Management Plan for the Stay: Stroke w/u Discharge barriers: Inpatient Needs Recommended discharge disposition: [facility] w/C ONNEL WORKER Leonides iLang P.T. - 02/02/2021 12:58 PM CST Physical [...] Time (min): 32 min Leonides Liang P.T. ONNEL WORKER Nan Rios M.D. - 02/02/2021 10:27 AM [...] pain syndrome, fibromyalgia, and nicotine use disorder. ONNEL WORKER Jessie Rock Pharm.D., R.Ph. - 02/02/2021 10:21 AM CST Images from the original note were not included. Admission Medication History Note Adherence issues: Unable to assess Medication list source: Pharmacy or dispense records. Medication list provided by [facility] in [place]. Most recent dispensing information obtained. Multiple changes [...] by mouth 2 (two) times a day. ONNEL WORKER Leonides Kumar M.D. - 02/02/2021 6:55 AM [...] status: Prior Disposition: Home Plan discussed with [facility] Neurology Stroke and Cerebrovascular Disease X Ray Inspector, Dr. Rios. Please page the [facility] Neurology Stroke and Cerebrovascular Disease service pager at [phone] with any questions. Leonides Kumar M.D. ONNEL WORKER Leonides Kumar M.D. - 02/01/2021 6:36 AM [...] status: Prior Disposition: Home Plan discussed with [facility] Neurology Stroke and Cerebrovascular Disease X Ray Inspector, Dr. Rios. Please page the [facility] Neurology Stroke and Cerebrovascular Disease service pager at [phone] with any questions. Leonides Kumar M.D. ONNEL WORKER documented in this encounter H&P Notes Nan [...] segment. ?? The patient presented to the [place] ED with acute onset vertigo which occurred yesterday afternoon while she was at [facility]. She bent forward and complained of neck pain which radiated to the top of her head. She also complained of warmth all over her body and generalised weakness. ?? With effort, she was able to ambulate back to her car with her groceries, where she met her son, whothen took her to the [place] ED. There, the patient had a head CT the chronic left cerebellar infarct. There was also concern for a new infarct in the right thalamus. INR was 1.35. She was transferred to [facility] for further evaluation. ?? Today, she [...] pain syndrome, fibromyalgia, and nicotine use disorder. ONNEL WORKER Marbella Cutler M.D. - 02/01/2021 2:55 AM [...] V4 segment. The patient presented to the [place] ED with acute onset vertigo which occurred yesterday afternoon while she was at [facility]. She bent forward and complained of neck pain which radiated to the top of her head. She also complained of warmth all over her body and generalised weakness. With effort, she was able to ambulate back to her car with her groceries, where she met her son, whothen took her to the [place] ED. There, the patient had a head CT the chronic left cerebellar infarct. INR was 1.35. She was transferred to [facility] for further evaluation. On the floor, she was hemodynamically stable but complained of ongoing vertigo, with difficulty keeping her eyes open. Social history: she is currently unemployed but previously worked at a [employer] and [employer]. She is fully independent of her ADLs [...] admitting resident. Please page the Stroke service [phone] with questions/concerns. ONNEL WORKER Gerald England M.D. - 01/31/2021 9:16 PM [...] artery dissection. Shewas subsequently admitted directly to [facility] Neurology Stroke service for further workup [...] COMPUTER NAVIGATION.; Surgeon: Darlin Olmedo M.D.; Location: [facility] ROMB OR ??? HYSTERECTOMY ??? JOINT REPLACEMENT [...] More than three times a week Attends muslim service: Patient refused Active member of club [...] and normal caliber bilateral MCAs, ACAs and manager security and safety. Patent anterior and right posterior communicating arteries. [...] page the Cerebrovascular Neurology Service pager at [phone] with any questions or concerns. [facility] Stroke Neurology Service Zinc Plate Grainer: Nan England M.D. STROKE DOCUMENTATION: Stroke Center [...] to hemorrhage and/or hemorrhagic risk Prestroke modified [place] Score (mRS): 1 - No significant disability. [...] 30 or greater) and hormonal contraceptive use ONNEL WORKER documented in this encounter Consult Notes Pamela Middleton M.S., TrayC., C.T.T.S. - 02/03/2021 10:08 AM CSTAssociated Order(s): IP CONSULT TO INTERNAL MEDICINE NICOTINE DEPENDENCE; IP CONSULT TO INTERNAL MEDICINE NICOTINE DEPENDENCE SUBJECTIVE Consults REASON FOR CONSULT Admitting Service: Neurology Reason for Consult: Tobacco Use Disorder HISTORY OF PRESENT ILLNESS Angie Bender is a 55 y.o. female who was seen at [place] and is being evaluated for tobacco use [...] provided the patient with educational materials and [facility] contact information. Patient is unable to schedule [...] Middleton M.S., Delvin, C.T.T.S. 02/03/2021 10:08 AM PERSONNEL WORKER ONNEL WORKER Catalina Panchal, RBrittonNBritton - 02/02/2021 2:11 PM CSTAssociated Order(s): IP CONSULT TO CARE MANAGEMENT Discharge Planning Assessment SUBJECTIVE Referral Data Referral Source: Early Screen for Discharge Planning Referral Reason: Discharge Planning Discharge Planning: Home health Who was present during the interview?: Patient Java Integration Developer Services Used: No Patient Information Primary [...] Behavior: Oriented Communication: Talks, Understands speaking, Understands Guyanese Environmental Supports Home Environment: House Anticipated Needs/Assistive [...] Nurse visit Home Care Agency Name : [facility] Anticipated Discharge Destination[place] [facility] [place] Discharge Services: Nursing Does the patient need discharge transport arranged?: No ASSESSMENT / PLAN Plan Assessment: The occupational therapy specialist met with Angie Bender to discuss her current hospitalization and home goingneeds. The patient was unaccompanied. The patient was a reliable historian, but was lacking completedetails at times. The role of occupational therapy specialist was reviewed. The patient reviewed her prior level of care and support system. The patient receives support from her son. The patient described her living environment as a single level home with level entry. Housekeeping, grocery shopping, meal prep, and other household responsibilities have previously been completed by patient. occupational therapy specialist discussed the patient's potential needs at dismissal based on their home setti ng, previous needs and responsibilities, homebound status, and relevant assessments with the patient. The patient will be safe and supported to return home with [facility] or previous services noted above when [...] dismissal will be provided by family--son. 3. occupational therapy specialist recommended nothing at this time. 4. occupational therapy specialist provided information regarding the dismissal process. 5. occupational therapy specialist placed or requested the following hospital-based consult orders and/or referrals:None. 6. occupational therapy specialist will continue to assess for homegoing needs with the interdisciplinary team. 7. occupational therapy specialist encouraged the patient to reach out with any questions/concerns. Care Management will continue to follow. Patient to discharge with home health care. [facility] - Admitted Since 01/31/2021 The patient receives jail visits 1-2x week. 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 02/02/2021 Radha Sanderson PBrittonT. - 02/01/2021 4:51 PM CST Physical [...] With: Alone Receives Help From: Family, Friend(s), laundry attendant ADL Assistance: Independent IADL/Homemaking Assistance: Required assistance IADL/Homemaking Assistance Comments: Has assistance with meals on wheels, cleaning, and medication management Occupational Role: On disability Prior Mobility/Functional Transfers Level of [place]: Independent Previous Transfer/Mobility Assistance Comments: Patient reports [...] Time (min): 25 min Radha Samuel P.T. ONNEL WORKER Rosario Lopez O.Jolanta. - 02/01/2021 3:17 PM [...] With: Alone Receives Help From: Family, Friend(s), laundry attendant ADL Assistance: Independent IADL/Homemaking Assistance: Required assistance IADL/Homemaking Assistance Comments: Has assistance with meals on wheels, cleaning, and medication management Driving: Independent Occupational Role: On disability Occupational Role Comments: Previously worked at a [employer] and [employer] Prior Mobility/Functional Transfers Level of [place]: Independent Home Living Type of Home: Apartment [...] Time (min): 60 min Rosario Lopez O.T. ONNEL WORKER Maria M Duque M.D. - 02/01/2021 7:21 AM CSTAssociated Order(s): IP CONSULT TO PHYSICAL MEDICINE & REHABILITATION Consult received for Physical Medicine and Rehabilitation Consult Service. I reviewed the electronic health record. I have triaged to therapy only; no clearance diver consult appears to be necessary at this time. If therapists or referring service feel that a clearance diver review is necessary, please send a new consult request with only the Physician consult - Physical Medicine and Rehabilitation consult (hospital) item selected. ONNEL WORKER documented in this encounter Nursing Notes Sofie [...] by: Sofie Sutton R.N. 02/03/21 5:24 PM PERSONNEL WORKER ONNEL WORKER Sofie Sutton R.N. - 02/03/2021 5:20 PM [...] by: Sofie Sutton R.N. 02/03/21 5:22 PM PERSONNEL WORKER ONNEL WORKER Marlene Grover R.N. - 02/03/2021 5:14 AM [...] Goal: Patient discharge needs identified Outcome: Progressing ONNEL WORKER Mague Rudolph R.N. - 02/02/2021 5:03 AM CST Shift Goals: Clinical Goals for the Shift: patient will use call light appropriately Identify possible barriers to meeting goals/advancing plan of care: End of Shift Summary: patient met goal ONNEL WORKER Valarie Grayson R.N. 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 MRI scheduled for Tuesday related to device monitoring. Electronically signed by: Valarie Grayson R.N. 02/01/21 5:59 PM PERSONNEL WORKER Problem: SKIN/TISSUE INTEGRITY Goal: Skin/Tissue integrity maintained or improved Outcome: Progressing Problem: SAFETY ADULT Goal: Maintain a safe environment Outcome: Progressing Problem: SAFETY ADULT - RISK FOR FALL AND OR FALL INJURY Goal: Patient remains free from fall/fall injury Outcome: Progressing ONNEL WORKER documented in this encounter Miscellaneous Notes Hospital [...] artery dissection. Shewas subsequently admitted directly to [facility] Neurology Stroke service for further workup [...] after a CTA head/neck in 3 months. ONNEL WORKER documented in this encounter Plan of Treatment Scheduled Referrals Name Type Priority Associated Diagnoses Order S chedule [facility] Outpatient Referral Routine Stroke (HCC) Ordered: Health Referral Chronic Pain Syn drome 02/03/2021 Stroke Cerebrovascular Accident Personal History documented as of this encounter Procedures Procedure Name Priority Date/Time Associated Comments Diagnosis MR NECK ANGIOGRAM RAD - Routine 02/03/2021 Results f or WITHOUT AND WITH IV (most inpatients 12:39 PM PERSONNEL WORKER this procedure CONTRAST and all are in the outpatients) results section. MR BRAIN WITHOUT AND RAD - Routine 02/03/2021 Result s for WITH IV CONTRAST (most inpatients 12:34 PM PERSONNEL WORKER this pr ocedure and all are in the outpatients) results section. DX ABDOMEN SUPINE WITH RAD - Routine 02/02/2021 3:26 R esults for UPRIGHT OR DECUBITUS 2 (most inpatients PM PERSONNEL WORKER t his procedure VIEWS and all are in the outpatients) results section. PROTHROMBIN TIME (PT), Routine 02/02/2021 5:20 Re sults for P AM PERSONNEL WORKER this procedure are in the results section. LIPID PANEL, S Routine 02/01/2021 5:21 Results fo r AM PERSONNEL WORKER this procedure are in the results section. RENAL FUNCTION PANEL, S Routine 02/01/2021 5:21 R esults for AM PERSONNEL WORKER this procedure are in the results section. FOLATE, S Routine 02/01/2021 5:21 Results for AM PERSONNEL WORKER this procedure are in the results section. VITAMIN B12 ASSAY, S Routine 02/01/2021 5:21 Resu lts for AM PERSONNEL WORKER this procedure are in the results section. ECG Routine 01/31/2021 Results for 11:35 PM PERSONNEL WORKER this procedure are in the results section. SARS CORONAVIRUS 2, Routine 01/31/2021 Results for RNA, RAPID POC, V 10:32 PM PERSONNEL WORKER this proce dure are in the results section. ELECTROLYTE (CHEM 4) Routine 01/31/2021 9:44 Resu lts for PANEL, S/P PM PERSONNEL WORKER this procedure are in the results section. ACTIVATED PARTIAL Routine 01/31/2021 9:44 Results for THROMBOPLASTIN TIME PM PERSONNEL WORKER this pro cedure (APTT), P are in the results section. PROTHROMBIN TIME (PT), Routine 01/31/2021 9:44 Re sults for P PM PERSONNEL WORKER this procedure are in the results section. CBC WITH DIFFERENTIAL, Routine 01/31/2021 9:44 Re sults for B PM PERSONNEL WORKER this procedure are in the results section. ALANINE Routine 01/31/2021 9:44 Results for AMINOTRANSFERASE (ALT), PM PERSONNEL WORKER this procedure S/P are in the results section. ASPARTATE Routine 01/31/2021 9:44 Results for AMINOTRANSFERASE (AST), PM PERSONNEL WORKER this procedure S/P are in the results section. THYROID-STIMULATING Routine 01/31/2021 9:44 Resul ts for HORMONE-SENSITIVE PM PERSONNEL WORKER this proce dure (S-TSH) are in the results section. HEMOGLOBIN A1C, B Routine 01/31/2021 9:44 Results for PM PERSONNEL WORKER this procedure are in the results section. documented in this encounter Results MR Neck Angiogram without and with IV Contrast (02/03/2021 12:39 PM PERSONNEL WORKER) Anatomical Region Laterality Modality Neck, Neuroradiology RST LOS, Neuroradiology [facility], N/A Magnetic Resonance Neuroradiology [facility] Specimen (Source) Anatomical Collection Method Collection Time Re ceived Time Location / / Volume Laterality 02/03/2021 11:37 AM PERSONNEL WORKER Impressions 02/03/2021 1:26 PM PERSONNEL WORKER 1. Infarctions in the posterior circulation of [...] technica l limitations. Narrative 02/03/2021 1:26 PM PERSONNEL WORKER EXAM: MR BRAIN WITHOUT AND WITH IV [...] and with IV Contrast (02/03/2021 12:34 PM PERSONNEL WORKER) Anatomical Region Laterality Modality Head, Brain, Neuroradiology RST LOS, Neuroradiology ADIL[place] N/A Magnetic Resonance LOS, Neuroradiology [facility] Specimen (Source) Anatomical Collection Method Collection Time Re ceived Time Location / / Volume Laterality 02/03/2021 11:37 AM PERSONNEL WORKER Impressions 02/03/2021 1:26 PM PERSONNEL WORKER 1. Infarctions in the posterior circulation of [...] technica l limitations. Narrative 02/03/2021 1:26 PM PERSONNEL WORKER EXAM: MR BRAIN WITHOUT AND WITH IV [...] or Decubitus 2 Views (02/02/2021 3:26 PM PERSONNEL WORKER) Anatomical Region Laterality Modality Abdomen, Abdominal RST LOS, Abdominal ARZ LOS, Right Digital Radiography Abdominal FLA LOS Specimen (Source) Anatomical Collection Method Collection Time Re ceived Time Location / / Volume Laterality 02/02/2021 3:49 PM PERSONNEL WORKER Impressions 02/02/2021 3:50 PM PERSONNEL WORKER Spinal stimulator device with tip over the T7-8 interspace. Generator pack posterior to the left janett ac crest. Postoperative changes ventral hernia repair. Surgical marylin near the GE junction. Cholecystectomy. Lung bases are clear. Narrative 02/02/2021 3:50 PM PERSONNEL WORKER EXAM: ??DX ABDOMEN SUPINE WITH UPRIGHT OR [...] (ABNORMAL) Prothrombin Time (PT) (02/02/2021 5:20 AM PERSONNEL WORKER) [facility] Method Time Signature Prothrombin 16.2 (H) 9.4 - 12.5 02/02/2021 DTL Time, P sec 6:12 AM PERSONNEL WORKER INR 1.5 0.9 - 1.1 02/02/2021 DTL 6:12 AM PERSONNEL WORKER Comment: ----ADDITIONAL INFORMATION---- Standard intensity warfarin therapeutic range: 2.0 to 3.0 ?? High intensity warfarin therapeutic rang e: 2.5 to 3.5 Specimen Anatomical Collection Method Collection Time Receive d Time (Source) Location / / Volume Laterality Blood (Blood, 02/02/2021 5:20 AM 02/03/20 5:48 Venous) PERSONNEL WORKER AM PERSONNEL WORKER Leonides Kumar M.D. LAB BLOOD ADD-ON Performing Organization Address City/State/ZIP Code Phon e Number [facility] - [address] [place], [place] [address] [facility] [place] [address] Laboratories-[facility] [address] [facility] Renal Function Panel (02/01/2021 5:21 AM PERSONNEL WORKER) P athologist Signature Potassium, S 4.3 3.6 - 5.2 02/01/2021 DTL mmol/L 6:26 AM PERSONNEL WORKER Sodium, S 139 135 - 145 02/01/2021 DTL mmol/L 6:26 AM PERSONNEL WORKER Chloride, S 106 98 - 107 02/01/2021 DTL mmol/L 6:26 AM PERSONNEL WORKER Bicarbonate, S 25 22 - 29 02/01/2021 DTL mmol/L 6:26 AM PERSONNEL WORKER Anion Gap 8 7 - 15 02/01/2021 DTL 6:26 AM PERSONNEL WORKER BUN (Blood Urea 14 6 - 21 02/01/2021 DTL Nitrogen), S mg/dL 6:26 AM PERSONNEL WORKER Creatinine 0.74 0.59 - 02/01/2021 DTL 1.04 mg/dL 6:26 AM PERSONNEL WORKER eGFR-Non >90 >=60 02/01/2021 DTL Black/ mL/min/BSA 6:26 AM PERSONNEL WORKER [place] Comment: ----ADDITIONAL INFORMATION---- Estimated GFR calculated using the 2009 CKD_EPI creatinine equation. eGFR-Black/ >90 >=60 mL/min/BSA 2020 6:26 AM PERSONNEL WORKER DTL Comment: ----ADDITIONAL INFORMATION---- Estimated GFR calculated using the 2009 CKD_EPI creatinine equation. Calcium, Total, S 9.2 8.6 - 10.0 mg/dL 02/01/2021 6:26 AM PERSONNEL WORKER DTL Glucose, S 96 70 - 140 mg/dL 02/01/2021 6:26 AM PERSONNEL WORKER D TL Albumin, S 3.6 3.5 - 5.0 g/dL 02/01/2021 6:26 AM PERSONNEL WORKER D TL Phosphorus (Inorganic), S 4.0 2.5 - 4.5 mg/dL 02/02/20 6:26 AM PERSONNEL WORKER DTL Specimen Anatomical Collection Method Collection Time Receive d Time (Source) Location / / Volume Laterality Blood (Blood, 02/01/2021 5:21 AM 02/02/20 5:52 Venous) PERSONNEL WORKER AM PERSONNEL WORKER Gerald England M.D. LAB BLOOD ADD-ON Performing Organization Address City/[facility] Phon e Number [facility] - [address] [place] [address] [facility] 200 [facility] (ABNORMAL) Vitamin B12 Assay (02/01/2021 5:21 AM PERSONNEL WORKER) Analysis Performed At Patho logist Time Signature Vitamin B12 >1400 (H) 180 - 914 02/02/2021 DTL Assay, S ng/L 7:10 AM PERSONNEL WORKER Comment: ----ADDITIONAL INFORMATION---- In patients being evaluated [...] (Blood, 02/01/2021 5:21 AM 02/02/20 5:52 Venous) PERSONNEL WORKER AM PERSONNEL WORKER Gerald England M.D. LAB BLOOD ADD-ON Performing Organization Address City[facility] Phon e Number [facility] - [address] [place], [place] [address] [place] [id number] [facility] 200 [facility] Folate (02/01/2021 5:21 AM PERSONNEL WORKER) P athologist Signature Folate, S 17.9 >=4.0 mcg/L 02/02/2021 7:09 DTL AM PERSONNEL WORKER Specimen Anatomical Collection Method Collection Time Receive d Time (Source) Location / / Volume Laterality Blood (Blood, 02/01/2021 5:21 AM 02/02/20 5:52 Venous) PERSONNEL WORKER AM PERSONNEL WORKER Gerald England M.D. LAB BLOOD ADD-ON Performing Organization Address City/[facility] Phon e Number [facility] - [address] [place] [address] [address] [facility] [place] [address] [facility] 200 [facility] Lipid Panel (02/01/2021 5:21 AM PERSONNEL WORKER) P athologist Signature Cholesterol, 157 mg/dL 02/01/2021 DTL Total 6:27 AM PERSONNEL WORKER Comment: ----REFERENCE VALUE---- Desirable: < 200 Borderline high: 200 - 239 High: > or = 240 Triglycerides 107 mg/dL 02/01/2021 6:27 AM PERSONNEL WORKER DTL Comment: ----REFERENCE VALUE---- Normal: <150 Borderline high: 150-199 High: 200-499 Very high: > or =500 Cholesterol, HDL, S 88 >=50 mg/dL 02/01/2021 6:27 AM PERSONNEL WORKER DTL Calculated LDL 48 mg/dL 02/01/2021 6:27 AM PERSONNEL WORKER DT L Comment: ----REFERENCE VALUE---- Desirable: <100 Above Desirable: 100-129 Borderline high: 130-159 High: 160-189 Very high: > or =190 Cholesterol, Non-HDL, Calculated 69 mg/dL 021 6:27 AM PERSONNEL WORKER DTL Comment: ----REFERENCE VALUE---- Desirable: <130 Above Desirable: 130-159 Borderline high: 160-189 High: 190-219 Very high: > or =220 Specimen Anatomical Collection Method Collection Time Receive d Time (Source) Location / / Volume Laterality Blood (Blood, 02/01/2021 5:21 AM 02/02/20 5:52 Venous) PERSONNEL WORKER AM PERSONNEL WORKER Gerald England M.D. LAB BLOOD ADD-ON Performing Organization Address [facility] Phon e Number [facility] - [address] [place], [place] [address] [facility] [place] [address] [facility] 200 [facility] ECG 12 Lead (01/31/2021 11:35 PM PERSONNEL WORKER) P athologist Signature Ventricular Rate 60 BPM MUSE ECG/Min ID Interval 170 ms MUSE QRSD Interval 88 ms MUSE QT Interval 434 ms MUSE QTC Interval 434 ms MUSE P [place] 31 degrees MUSE R [place] -16 degrees MUSE T Wave [place] 3 degrees MUSE Specimen Anatomical Collection Method Collection Time Receive d Time (Source) Location / / Volume Laterality 01/31/2021 11:35 02/01/2021 6:10 PM PERSONNEL WORKER AM PERSONNEL WORKER Impressions MUSE - 02/01/2021 6:10 AM PERSONNEL WORKER Normal sinus rhythm Minimal voltage criteria for [...] Rapid POC, V Asymptomatic (01/31/2021 10:32 PM PERSONNEL WORKER) [facility] gist Method Time Signature SARS Undetected Undetected 01/31/2021 DTLR Coronavirus-2 10:52 PM PERSONNEL WORKER , RNA, Rapid POC, V Comment: Negative for SARS-CoV-2. The Cue COVID-19 test is a molecular shahzad t for SARS-CoV-2, the virus that causes COVID- 19. A Negative result means that the Cue COV ID-19 test did not detect SARS-CoV-2 virus in your sample. Cue COVID-19 test uses the [employer] System. This test has received Emergency Use Authorization (EUA) by the U.S. Food and Drug Administration (FDA) and is used per man ufacturer instructions. Performance characteristic s were verified by [facility] in a manner consistent with CLIA requirements. Fact sheets for this Emerg ency Use Authorization (EUA) can be found at the following links: Providers: https://Keepcon.uberVU/documentation/prov iders.pdf Patients: https://Keepcon.com/documentation/olayinka ents.pdf SARS Coronavirus 2, Source Nasopharynx DEFAULT 01/31/2021 10:52 PM PERSONNEL WORKER DTLR Specimen Anatomical Collection Method Collection Time Receive d Time (Source) Location / / Volume Laterality Varies 01/31/2021 10:32 01/31/2021 (Nasopharynx) PM PERSONNEL WORKER 10:32 PM PERSONNEL WORKER Nan Rios M.D. LAB MICROBIOLOGY - GENERAL O RDERABLES Performing Organization Address City/State/ZIP Code Phon e Number PERFORMING LABS, REF [place] [address] INTERFACE Ref Interface 200 [facility] DT Performing Labs, [place] [address] Interface 200 [facility] Electrolyte (Chem 4) Panel (01/31/2021 9:44 PM PERSONNEL WORKER) P athologist Signature Potassium, P 4.0 3.6 - 5.2 01/31/2021 STMA mmol/L 10:06 PM PERSONNEL WORKER Sodium, P 137 135 - 145 01/31/2021 STMA mmol/L 10:06 PM PERSONNEL WORKER Chloride, P 104 98 - 107 01/31/2021 STMA mmol/L 10:06 PM PERSONNEL WORKER Bicarbonate, P 24 22 - 29 01/31/2021 STMA mmol/L 10:06 PM PERSONNEL WORKER Anion Gap, P 9 7 - 15 01/31/2021 STMA 10:06 PM PERSONNEL WORKER Specimen Anatomical Collection Method Collection Time Receive d Time (Source) Location / / Volume Laterality Blood (Blood, 01/31/2021 9:44 PM 02/01/20 21 9:56 Venous) PERSONNEL WORKER PM PERSONNEL WORKER Gerald England M.D. LAB BLOOD ADD-ON Performing Organization Address City[facility] Phon e Number [facility] - [address] [place], [place] [address] [facility] [place] [address] [facility] [address] (ABNORMAL) Prothrombin Time (PT) (01/31/2021 9:44 PM PERSONNEL WORKER) [facility] Method Time Signature Prothrombin 15.5 (H) 9.4 - 12.5 01/31/2021 DTL Time, P sec 10:27 PM PERSONNEL WORKER INR 1.4 0.9 - 1.1 01/31/2021 DTL 10:27 PM PERSONNEL WORKER Comment: ----ADDITIONAL INFORMATION---- Standard intensity warfarin therapeutic range: 2.0 to 3.0 ?? High intensity warfarin therapeutic rang e: 2.5 to 3.5 Specimen Anatomical Collection Method Collection Time Receive d Time (Source) Location / / Volume Laterality Blood (Blood, 01/31/2021 9:44 PM 02/01/20 21 Venous) PERSONNEL WORKER 10:06 PM PERSONNEL WORKER Gerald England M.D. LAB BLOOD ADD-ON Performing Organization Address [facility] Phon e Number [facility] - [address] APTT (Activated Partial Thromboplastin Time) (01/31/2021 9:44 PM PERSONNEL WORKER) P athologist Signature Activated 35 25 - 37 sec 01/31/2021 DT Partial 10:27 PM PERSONNEL WORKER Thrombopl Time, P Specimen Anatomical Collection Method Collection Time Receive d Time (Source) Location / / Volume Laterality Blood (Blood, 01/31/2021 9:44 PM 02/01/20 Venous) PERSONNEL WORKER 10:06 PM PERSONNEL WORKER Gerald England M.D. LAB BLOOD ADD-ON Performing Organization Address [facility] Phon e Number [facility] - [address] (ABNORMAL) Hemoglobin A1c (01/31/2021 9:44 PM PERSONNEL WORKER) P athologist Signature Hemoglobin A1c, 6.1 (H) 4.0 - 5.6 01/31/2021 DTL B % 10:18 PM PERSONNEL WORKER Comment: Hemoglobin A1c values of 5.7-6.4 percent indicate an increased risk for developing diabetes henrry skinner. In diabetic patients, HbA1c goals should be discussed with healthcare provider. Specimen Anatomical Collection Method Collection Time Receive d Time (Source) Location / / Volume Laterality Blood (Blood, 01/31/2021 9:44 PM 02/01/20 21 Venous) PERSONNEL WORKER 10:06 PM PERSONNEL WORKER Gerald England M.D. LAB BLOOD ADD-ON Performing Organization Address City/State/ZIP Code Phon e Number [facility] - [address] [place], [place] [address] [facility] [place] [address] [facility] [address] [facility] (ABNORMAL) CBC with Differential, Blood (01/31/2021 9:44 PM PERSONNEL WORKER) [facility] Method Time Signature Hemoglobin 11.1 (L) 11.6 - 01/31/2021 DTL 15.0 g/dL 10:12 PM PERSONNEL WORKER Hematocrit 34.9 (L) 35.5 - 01/31/2021 DTL 44.9 % 10:12 PM PERSONNEL WORKER Erythrocytes 3.84 (L) 3.92 - 01/31/2021 DTL 5.13 10:12 PM PERSONNEL WORKER x10(12)/L MCV 90.9 78.2 - 01/31/2021 DTL 97.9 fL 10:12 PM PERSONNEL WORKER RBC Distrib Width 14.4 12.2 - 01/31/2021 DTL 16.1 % 10:12 PM PERSONNEL WORKER Platelet Count 326 157 - 371 01/31/2021 DTL x10(9)/L 10:12 PM PERSONNEL WORKER Leukocytes 6.8 3.4 - 9.6 01/31/2021 DTL x10(9)/L 10:12 PM PERSONNEL WORKER Neutrophils 4.91 1.56 - 01/31/2021 DTL 6.45 10:12 PM PERSONNEL WORKER x10(9)/L Lymphocytes 1.52 0.95 - 01/31/2021 DTL 3.07 10:12 PM PERSONNEL WORKER x10(9)/L Monocytes 0.34 0.26 - 01/31/2021 DTL 0.81 10:12 PM PERSONNEL WORKER x10(9)/L Eosinophils 0.03 0.03 - 01/31/2021 DTL 0.48 10:12 PM PERSONNEL WORKER x10(9)/L Basophils 0.03 0.01 - 01/31/2021 DTL 0.08 10:12 PM PERSONNEL WORKER x10(9)/L Specimen Anatomical Collection Method Collection Time Receive d Time (Source) Location / / Volume Laterality Blood (Blood, 01/31/2021 9:44 PM 02/01/20 21 Venous) PERSONNEL WORKER 10:06 PM PERSONNEL WORKER Gerald England M.D. LAB BLOOD ADD-ON Performing Organization Address City/State/ZIP Code Phon e Number [facility] - [address] [place], [place] [address] [facility] [place] [address] [facility] [address] [facility] S-TSH (Thyroid-Stimulating Hormone - Sensitive) (01/31/2021 9:44 PM PERSONNEL WORKER) P athologist Signature TSH, Sensitive 0.3 0.3 - 4.2 01/31/2021 DTL mIU/L 10:59 PM PERSONNEL WORKER Specimen Anatomical Collection Method Collection Time Receive d Time (Source) Location / / Volume Laterality Blood (Blood, 01/31/2021 9:44 PM 02/01/20 21 Venous) PERSONNEL WORKER 10:06 PM PERSONNEL WORKER Gerald England M.D. LAB BLOOD ADD-ON Performing Organization Address City/[facility]/ZIP Code Phon e Number [facility] - [address] [place], [place] [address] [facility] [place] [address] [place] [address] [address] [facility] AST (Aspartate Aminotransferase) (01/31/2021 9:44 PM PERSONNEL WORKER) [facility] Method Time Signature Aspartate 23 8 - 43 01/31/2021 DTL Aminotransferase U/L 10:59 PM PERSONNEL WORKER (AST), S Specimen Anatomical Collection Method Collection Time Receive d Time (Source) Location / / Volume Laterality Blood (Blood, 01/31/2021 9:44 PM 02/01/20 21 Venous) PERSONNEL WORKER 10:06 PM PERSONNEL WORKER Gerald England M.D. LAB BLOOD ADD-ON Performing Organization Address City/State/ZIP Code Phon e Number [facility] - [address] [place], [place] [address] [address] [facility] [place], [place] [address] [place] [address] [facility] ALT (Alanine Aminotransferase) (01/31/2021 9:44 PM PERSONNEL WORKER) [facility] gist Method Time Signature Alanine 15 7 - 45 01/31/2021 DTL Aminotransferase U/L 10:59 PM PERSONNEL WORKER (ALT), S Specimen Anatomical Collection Method Collection Time Receive d Time (Source) Location / / Volume Laterality Blood (Blood, 01/31/2021 9:44 PM 02/01/20 21 Venous) PERSONNEL WORKER 10:06 PM PERSONNEL WORKER Gerald England M.D. LAB BLOOD ADD-ON Performing Organization Address City/State/ZIP Code Phon e Number [facility] - [address] [place], [place] [address] [facility] [place] [address] [facility] [address] [...] tablet 1,000 mg Given 02/03/2021 6:56 AM PERSONNEL WORKER 1,000 mg (TYLENOL) 1,000 mg, oral, Every 6 hours PRN, mild pain or score 1-3 of 10, moderate pain or score 4-6 of 10, headaches, Starting on 02/01/21 at 0210 Given 02/02/2021 2:36 PM PERSONNEL WORKER 1,000 mg Given 02/02/2021 8:53 AM PERSONNEL WORKER 1,000 mg albuterol 90 mcg/actuation inhaler 2 puf f Given 02/03/2021 4:29 AM PERSONNEL WORKER 2 puffs 2 puff, inhalation, Every 6 hours PRN, wheezing, shortness of breath, Starting on 02/01/21 at 1115 apixaban tablet 5 mg (ELIQUIS) Given 02/03/2021 9:30 AM PERSONNEL WORKER 5 mg 5 mg, oral, 2 times daily, First dose on Tue02/02/21 at 2100 Given 02/02/2021 8:09 PM PERSONNEL WORKER 5 mg aspirin tablet 325 mg Given 02/02/2021 8:11 AM PERSONNEL WORKER 325 mg 325 mg, oral, Daily, First dose on 02/01/21 at 1030 Given 02/01/2021 10:54 AM PERSONNEL WORKER 325 mg atorvastatin tablet 40 mg (LIPITOR) Given 02/02/2021 8:09 PM PERSONNEL WORKER 40 mg 40 mg, oral, Daily at bedtime, First dose on Tue02/02/[address] tablet 10 mg [...] 25 m cg Given 02/03/2021 9:29 AM PERSONNEL WORKER 25 mcg 25 mcg, oral, Daily, First dose on 02/01/21 at 0900, cholecalciferol (vitamin D3) orderable was interchanged for cholecalciferol (vitamin D3) tablet/capsule Given 02/02/2021 8:10 AM PERSONNEL WORKER 25 mcg Given 02/01/2021 9:11 AM PERSONNEL WORKER 25 mcg cyanocobalamin tablet 2,000 mcg (VITAMIN Given 02/03/2021 9: 28 AM PERSONNEL WORKER 2,000 mcg B12) 2,000 mcg, oral, Daily, First dose on 02/01/21 at 0900 Given 02/02/2021 8:08 AM PERSONNEL WORKER 2,000 mcg Given 02/01/2021 9:11 AM PERSONNEL WORKER 2,000 mcg diazePAM tablet 10 mg (VALIUM) Given 02/03/2021 10:51 AM PERSONNEL WORKER 10 mg 10 mg, oral, 2 times daily PRN, anxiety, Starting on 02/01/21 at 1016 Given 02/02/2021 10:24 PM PERSONNEL WORKER 10 mg Given 02/02/2021 8:53 AM PERSONNEL WORKER 10 mg docusate sodium 283 mg/5 mL enema 1 enem a (ENEMEEZ) 1 enema, rectal, 2 times daily PRN, cons tipation, Starting on 01/31/21 at 2125, If no bowel movement within 24 hours of starting bisac odyl FLUoxetine capsule 80 mg (PROzac) Given 02/03/2021 9:28 AM PERSONNEL WORKER 80 mg 80 mg, oral, Daily, First dose on 02/01/21 at 0900, FLUoxetine orderable was interchanged for FLUoxetine tablet/capsule Given 02/02/2021 8:10 AM PERSONNEL WORKER 80 mg Given 02/01/2021 9:10 AM PERSONNEL WORKER 80 mg folic acid tablet 800 mcg Given 02/03/2021 9:29 AM PERSONNEL WORKER 800 mcg 800 mcg, oral, Every morning, First dose on Tue02/01/21 at 0900 Given 02/02/2021 8:14 AM PERSONNEL WORKER 800 mcg Given 02/01/2021 10:00 AM PERSONNEL WORKER 800 mcg furosemide tablet 40 mg (LASIX) Given 02/03/2021 9:29 AM PERSONNEL WORKER 40 mg 40 mg, oral, 2 times daily, First dose on Tue02/02/21 at 0900 Given 02/02/2021 6:25 PM PERSONNEL WORKER 40 mg Given 02/02/2021 8:10 AM PERSONNEL WORKER 40 mg gadobutrol injection 0.01-30 mL (GADAVIS T) Given 02/03/2021 12:35 PM PERSONNEL WORKER 8 mL 0.01-30 mL, intravenous, Once in imaging, contrast, Starting on Tue02/03/21 at 1235, For 1 dose, Imaging Protocol Orders, Dose per Radiant Medication Guidelines heparin (porcine) Given 02/02/2021 6:29 AM PERSONNEL WORKER 5,000 Units Left Lower Abdomen injection 5,000 Units 5,000 Units, subcutaneous, Every 8 hours scheduled, First dose on Tue02/01/21 at 0600 Given 02/01/2021 9:17 PM PERSONNEL WORKER 5,000 Units Right Lower Abdomen Given 02/01/2021 1:56 PM PERSONNEL WORKER 5,000 Units Right Lower Abdomen lamoTRIgine tablet 200 mg (LaMICtal) Given 02/03/2021 9:29 AM PERSONNEL WORKER 200 mg 200 mg, oral, 2 times daily, First dose (after last modification) on 01/31/21 at 2245 Given 02/02/2021 8:09 PM PERSONNEL WORKER 200 mg Given 02/02/2021 8:11 AM PERSONNEL WORKER 200 mg lidocaine 5 % 1 patch Medication Applied 01/31/2021 10:44 PM 1 patch Upper Back (LIDODERM) PERSONNEL WORKER 1 patch, transdermal, Administer over 12 Hours, Daily, First dose on 01/31/21 at 2200, Remove after 12 hours. lidocaine 5 % ointment 1 application Given 02/02/2021 2:33 A M PERSONNEL WORKER 1 application (XYLOCAINE) 1 application, topical, 3 times daily PRN, mild pain or score 1-3 of 10, Starting on Tue02/01/21 at 1114, MAX of 20 g of ointment/day Given 02/01/2021 5:18 PM PERSONNEL WORKER 1 application loratadine tablet 10 mg (CLARITIN) Given 02/03/2021 9:30 AM PERSONNEL WORKER 10 mg 10 mg, oral, Daily, First dose on Tue02/01/21 at 0900, loratadine 10 mg oral daily was interchanged for cetirizine 5 mg oral twice daily Given 02/02/2021 8:11 AM PERSONNEL WORKER 10 mg Given 02/01/2021 9:12 AM PERSONNEL WORKER 10 mg magnesium oxide tablet 400 mg (MAG-OX) Given 02/02/2021 8:09 PM PERSONNEL WORKER 400 mg 400 mg, oral, Daily at bedtime, First dose on Tue02/01/21 at 2100, magnesium oxide 400 mg daily was interchanged for magnesium gluconate 500 mg daily Given 02/01/2021 9:17 PM PERSONNEL WORKER 400 mg meclizine tablet 25 mg (ANTIVERT) Given 02/02/2021 3:01 AM PERSONNEL WORKER 25 mg 25 mg, oral, 3 times daily PRN, dizziness, Starting on Tue02/01/21 at 0211 Given 02/01/2021 9:19 AM PERSONNEL WORKER 25 mg meclizine tablet 25 mg (ANTIVERT) Given 02/02/2021 8:09 PM PERSONNEL WORKER 25 mg 25 mg, oral, 4 times [...] 1 patch Left Shoulder patch (NICODERM CQ) PERSONNEL WORKER 1 patch, transdermal, Administer over 24 Hours, Daily, First dose on Tue02/01/21 at 0900 Medication Applied 02/02/2021 8:14 AM PERSONNEL WORKER 1 patch Right Arm Medication Applied 02/01/2021 9:13 AM PERSONNEL WORKER 1 patch Left Shoulder nicotine 21 mg/24 hr 1 Medication Applied 02/03/2021 2:55 PM 1 patch Left Shoulder patch (NICODERM CQ) PERSONNEL WORKER 1 patch, transdermal, Administer over 24 Hours, Daily, First dose on Tue02/03/21 at 1330 ondansetron ODT disintegrating tablet 4 mg Given 02/02/2021 10:2 4 PM PERSONNEL WORKER 4 mg (ZOFRAN-ODT) 4 mg, oral, Every 8 hours PRN, nausea, Starting on 01/31/21 at 2228, When splitting ODT at bedside, handle with gloves and a pill splitter to prevent moisture contact. Given 02/02/2021 2:36 PM PERSONNEL WORKER 4 mg Given 02/01/2021 1:12 AM PERSONNEL WORKER 4 mg oxyCODONE IR tablet 10 mg (ROXICODONE) Given 02/03/2021 5:02 PM PERSONNEL WORKER 10 mg 10 mg, oral, Every 6 hours PRN, moderate pain or score 4-6 of 10, Starting on 01/31/21 at 2229 Given 02/03/2021 2:42 AM PERSONNEL WORKER 10 mg Given 02/02/2021 8:08 PM PERSONNEL WORKER [address] tablet 40 mg (PROTONIX) Given 02/03/2021 4:58 PM PERSONNEL WORKER 40 mg 40 mg, oral, 2 times daily before breakfast and dinner, First dose on 02/01/21 at 0700, pantoprazole 40 mg oral twice daily was interchanged for esomeprazole 20 or 40 mg oral twice daily Swallow whole. Do NOT crush, chew, or split tablet. Given 02/03/2021 6:56 AM PERSONNEL WORKER 40 mg Given 02/02/2021 6:25 PM PERSONNEL WORKER 40 mg pregabalin capsule 150 mg (LYRICA) Given 02/01/2021 9:12 AM PERSONNEL WORKER 150 mg 150 mg, oral, Every morning, First dose on 02/01/21 at 0900 pregabalin capsule 300 mg (LYRICA) Given 01/31/2021 11:16 PM PERSONNEL WORKER 300 mg 300 mg, oral, Every evening, First dose on 01/31/21 at 2300 pregabalin capsule 300 mg (LYRICA) Given 02/03/2021 9:28 AM PERSONNEL WORKER 300 mg 300 mg, oral, Every morning, First dose (after last modification) on 02/02/21 at 0900 Given 02/02/2021 8:10 AM PERSONNEL WORKER 300 mg pregabalin capsule 600 mg (LYRICA) Given 02/02/2021 8:09 PM PERSONNEL WORKER 600 mg 600 mg, oral, Daily at bedtime, First dose (after last modification) on 02/01/21 at 2100 Given 02/01/2021 9:17 PM PERSONNEL WORKER 600 mg promethazine injection 6.25 mg (PHENERGA N) Given 02/01/2021 12:47 PM PERSONNEL WORKER 6.25 mg 6.25 mg, intravenous, Once, On 02/01/21 at 1030, For 1 dose QUEtiapine tablet 50 mg (SEROquel) Given 02/03/2021 12:39 AM PERSONNEL WORKER 50 mg 50 mg, oral, Bedtime PRN, agitation/sleep, Starting on 02/01/21 at 1310 rOPINIRole tablet 2 mg (REQUIP) Given 02/03/2021 2:42 AM PERSONNEL WORKER 2 mg 2 mg, oral, Daily PRN, restless legs, Starting on 01/31/21 at 2233 sennosides-docusate sodium 8.6-50 mg per Given 02/03/2021 9: 27 AM PERSONNEL WORKER 2 tablets tablet 2 tablet (SENOKOT-S) 2 [...] 300 mg (ZONEGRAN) Given 02/03/2021 9:28 AM PERSONNEL WORKER 300 mg 300 mg, oral, 2 times daily, First dose (after last modification) on 01/31/21 at 2245, Swallow whole. Do NOT crush, chew or open capsule. Given 02/02/2021 8:09 PM PERSONNEL WORKER 300 mg Given 02/02/2021 8:53 AM PERSONNEL WORKER 300 mg documented in this encounter Active and Recently Administered Medications Times are shown in PERSONNEL WORKER. Scheduled Medication Order 02/01/2021 02/02/2021 02/03/2021 apixaban tablet 5 mg (ELIQUIS) 2008 (Given - Pro vider: Marlene Grover R.N.) 7820 (Given - Provider: Karma Cervantes R.N.) 5 mg, oral, 2 times daily, First dose on 02/02/21 at 2100 aspirin tablet 325 mg (CANCELED) 1054 (Given - Provide r: Valaire Grayson R.N.) 0811 (Given - Provider: Leatha [...] mcg 1000 (Given - Provider: Valarie hager R.N.) 0814 (Given - Provider: Leatha Vasquez R.N.) 0929 (Given - Provider: Karma Cervantes R.N.) 800 mcg, oral, Every morning, First dose on 02/01/21 at 0900 furosemide tablet 40 mg (LASIX) 0810 (Gi saeid - Provider: Leatha Vasquez R.N.)1825 (Given - Provider: Leatha Vasquez R.N.) 0929 (Given - Provider: Karma Cervantes R.N.)1658 (Not Given - Provider: Sharifa GanNBritton - Reason: Patient/family refused) 40 mg, oral, [...] Grover R.N.)1658 (Given - Provider: Sofie Sutton R.N.) 40 mg, oral, 2 times daily before breakf ast and dinner, First dose on Tue02/01/21 at 0700, pantoprazole 40 mg oral twice daily was interchanged for esomeprazole 20 or 40 mg oral twice daily Swallow whole. Do NOT crush, chew, or split tablet. pregabalin capsule 150 mg (LYRICA) (CANCELED) 0912 (Gi saeid - Provider: Valarie Grayson R.NBritton) 150 mg, oral, Every morning, First dose on 02/01/21 at 0900 pregabalin capsule 300 mg (LYRICA)(Linked Group 1) 0810 (Given - Provider: Leatha Vasquez R.N.) 0928 (Given - Provider: Karma Cervantes RBetsy) 300 mg, oral, Every morning, First dose (after last modification) on Tue02/02/21 at 0900 pregabalin capsule 600 mg (LYRICA)(Linked Group 1) 211 7 (Given - Provider: Mague Rudolph RBrittonNBritton) 2008 (Given - Provider: Marlene Grover RBrittonNBritton) 600 mg, oral, Daily at bedtime, First do se (after last modification) on Tue02/01/21 at 2100 promethazine injection 6.25 mg (PHENERGAN) (COMPLETED) 1247 (Given - Provider: Valarie Grayson R.N. - Comment: no IV access) 6.25 mg, intravenous, Once, On Tue02/01/21 at 1030, For 1 dose sennosides-docusate sodium 8.6-50 mg per tablet 2 tablet (SENOKOT-S)(Linked Group 2) 0911 (Not Given - Provider: Valarie suh RBetsy - Reason: Patient/family refused) 0815 (Not Given - Provider: Leatha almendarez RBetsy - Reason: Patient/family refused) 0927 (Given - Provider: Karma Cervantes RBetsy) 2 tablet, oral, Daily, First dose on [...] 911 (Given - Pro vider: Valarie Grayson R.N.)2117 [...] R.German.) 0233 (Given - Provider: Mague Rudolph RBrittonN.) 1 application, topical, 3 times daily ID N, mild pain or score 1-3 of 10, Starting on 02/01/21 at 1114, MAX of 20 g of ointment/day meclizine tablet 25 mg (ANTIVERT) (CANCELED) 0919 (Giv en - Provider: Valarie Grayson R.N.) 0301 (Given - Provider: Mague Rudolph R.NBritton) 25 mg, oral, 3 times daily PRN, dizziness, Starting on Sun 1 at 0211 meclizine tablet 25 mg (ANTIVERT) 2008 ( Given - Provider: Marlene Grover R.NBritton) 25 mg, oral, 4 times daily PRN, [...] (ZOFRAN-ODT ) 0112 (Given - Provider: Rica Jon, R.N.) 1436 (Given - Provider: Leatha chavez [...] tablet 4 mg (ZANAFLEX) 0210 (Held by [facility] er - Provider: Marbella Cutler M.D. [...] COVID19 Pending 01/31/2021 01/31/2021 01/31/2021 10:53 PM PERSONNEL WORKER Assessment Noted Time PHQ-9 Depression Total Score: 23 02/02/2021 11:[address] documented as of this encounter
--- OUTSIDE RECORDS SUMMARY | 2022-09-20 14:13 | XMS_ITS | Encounter Summary ---
:1965 Author Organization [facility] Address [address] [place] [id number] Care Team Providers Name Role Phone Unavailable Primary Care Provider Unavailable Encounter Details Date Type Department Care Team Description 02/03/2021 Orders Only Department of Neurology Leonides Kumar S troke ([facility]) (Primary in [facility] Lilian Dx) 200 [facility] 200 [place] [phone] Social History Tobacco Use Types Packs/Day Years [...] you attend yazdanism or Patient refused 2021 zoroastrian services? Do [...]
--- OUTSIDE RECORDS SUMMARY | 2022-09-20 14:13 | XMS_ITS | Encounter Summary ---
:1965 Author Organization [facility] Address [address] [place] [address] Care Team Providers Name Role Phone Unavailable Primary Care Provider Unavailable Reason for Visit Reason Onset Date Comments saul med request 02/03/2021 Encounter Details Date Type Department Care Team Description 02/03/2021 Clinical Communication Department of [facility], trinidad Mccarthy med request Nicotine Dependence, M.S., C.T.T.S., [facility] in [place], [address] [place] [address] [place] [phone] [place], [place] [phone] (Work) [phone] Social History Tobacco Use Types Packs/Day Years [...] you attend scientology or Patient refused 2021 scientology services? 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
--- OUTSIDE RECORDS SUMMARY | 2022-09-20 14:13 | XMS_ITS | Encounter Summary ---
:1965 Author Organization [facility] Address [address] [place] [address] Care Team Providers Name Role Phone Unavailable Primary Care Provider Unavailable Encounter Details Date Type Department Care Team Description 02/16/2021 Anesthesia Event Department of Radiology Liban Sunshine APRN, ASSISTANT QUALITY MANAGER, DNAP [address] [place] [phone] in [facility] Deep Velasquez M.D. [address] [place] [phone] [place] [phone] Anesthesia Record Procedure Summary Procedure Name Responsible Anesthesia Start Anesthesia Stop Anesthesiologist Time Time IR CEREBRAL Liban Sunshine APRN, 02/16/21 0825 02/16/21 1100 INTRACRANIAL ARTERY ASSISTANT QUALITY MANAGER, DNAP EMBOLIZATION Events Date Time Event Comment [...] h andoff to the receiving staff during [facility] we 1. Identified the patient [...] 1,000 units/mL injection 6,000 Units heparin standard 42046 Units/250 mL in 0.45 % Sodium C [...] Removal Time: 1653 Percutaneous Access Site 02/16/21; 08; 02/16/21 08 by 1653 by Temporary Jessie Bardales Rayman, Tanner B , (non-tunneled, C.S.T. R.N. non-implanted); Arterial; Dura prep; Right Femoral; 6 Fr.; 02/17/21; 1653 Percutaneous Access Site 02/16/21; 0918; 02/16/21 0918 by 1653 by Temporary Jessie Bardales Rayman, Tanner B [...] you attend latter-day or Patient refused 2021 mu-ism services? Do you belong to any clubs or No 05/17/2022 organizations such as latter-day groups, [employer], [employer] or athletic groups, or school groups? How [...] Room / Location: Department of Radiology in [place], [place] Anesthesia Start: 08 Anesthesia Stop: 1100 Procedure: IR CEREBRAL INTRACRANIAL [...] Dr. Castillo. Location: Department of Radiology in [place], [place] Pertinent components of the patient's history [...] with patient /legal guardian or through an manager business development hospice. Risks/Benefits/Alternatives of Blood transfusion discussed with patient [...]
--- OUTSIDE RECORDS SUMMARY | 2022-09-20 14:13 | XMS_ITS | Encounter Summary ---
:1965 Author Organization [facility] Address [address] [place] [address] Care Team Providers Name Role Phone Unavailable Primary Care Provider Unavailable Encounter Details Date Type Department Care Team Description 02/05/2021 Orders Only Pharmacy Prior Auth RO Elsewhere, Pcp [phone] Social History Tobacco Use Types Packs/Day Years [...] you attend orthodoxy or Patient refused 2021 latter-day services? Do [...]
--- OUTSIDE RECORDS SUMMARY | 2022-09-20 14:13 | XMS_ITS | Encounter Summary ---
:1965 Author Organization [facility] Address [address] [place] [address] Care Team Providers Name Role Phone Unavailable Primary Care Provider Unavailable Reason for Visit Outpatient (Routine) - Closed Specialty Diagnoses / Procedures Referred By Contact Refer red To Contact Video Medicine Diagnoses Stroke Cerebrovascular Accident Personal History Robert Diehl [place] M.D. [address] [place] [address] Referral ID Status Reason Start Date Expiration Date Visits Requ ested Visits Authorized [id number] Closed 12/30/2020 12/30/2021 1 1 Encounter Details Date Type Department Care Team Description 02/02/2021 Virtual Visit Department of Robert Diehl Stroke Cere brovascular Neurology jimmy Celaya M.D. Accident Personal [place], [place] 200 [facility] History 200 [place] [phone] Social History Tobacco Use Types Packs/Day Years [...] you attend baptism or Patient refused 2021 zoroastrianism services? Do you belong to any clubs or No 05/17/2022 organizations such as baptism groups, unions, [employer] or athletic groups, or school groups? How [...] department over the weekend was transferred to [facility] service where she is currently admitted. Therefore she will not be present for today's 8:00 a.m. Outpatient consultation. Highly appreciative of the [facility] Stroke Service cares. No charge. Electronically signed by: Robert Diehl M.D. 

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
--- OUTSIDE RECORDS SUMMARY | 2022-09-20 14:13 | XMS_ITS | Encounter Summary ---
:1965 Author Organization [facility] Address [address] [place] [address] Care Team Providers Name Role Phone Unavailable Primary Care Provider Unavailable Encounter Details Date Type Department Care Team Description 02/11/2021 Ancillary Procedure Department of Radiology Ridge Vega in [facility] raúl Quintana 200 [facility] 200 [place] [phone] (Wo rk) Social History Tobacco Use Types [...] you attend taoism or Patient refused 2021 advent services? Do [...] bilateral thalami (series 3 image 36), bilateral RESIDENTIAL AIR SEALING TECHNICIAN 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 bilateral thalami (series 3 image 36), bilateral RESIDENTIAL AIR SEALING TECHNICIAN 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 bilateral thalami (series 3 image 36), bilateral RESIDENTIAL AIR SEALING TECHNICIAN 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 bilateral thalami (series 3 image 36), bilateral RESIDENTIAL AIR SEALING TECHNICIAN 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 bilateral thalami (series 3 image 36), bilateral RESIDENTIAL AIR SEALING TECHNICIAN 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 bilateral thalami (series 3 image 36), bilateral RESIDENTIAL AIR SEALING TECHNICIAN 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
--- OUTSIDE RECORDS SUMMARY | 2022-09-20 14:13 | XMS_ITS | Encounter Summary ---
:1965 Author Organization [facility] Address [address] [place] [address] Care Team Providers Name Role Phone Unavailable Primary Care Provider Unavailable Encounter Details Date Type Department Care Team Description 02/02/2021 Orders Only Department of Neurology in Bisi Acevedo D.O. [place], [place] [address] [place] [address] 200 [place] [address] [phone] (Wo rk) Social History Tobacco Use Types [...] you attend mosque or Patient refused 2021 catholic services? Do [...]
--- OUTSIDE RECORDS SUMMARY | 2022-09-20 14:13 | XMS_ITS | Encounter Summary ---
:1965 Author Organization [facility] Address [address] [place] [address] Care Team Providers Name Role Phone Unavailable Primary Care Provider Unavailable Encounter Details Date Type Department Care Team Description 02/11/2021 Ancillary Procedure Department of Radiology Ridge Vega in [facility] raúl Quintana 200 [facility] 200 [place] [phone] (Wo rk) Social History Tobacco Use Types [...] bilateral thalami (series 3 image 36), bilateral GRINDER 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 bilateral thalami (series 3 image 36), bilateral GRINDER 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 bilateral thalami (series 3 image 36), bilateral GRINDER 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 bilateral thalami (series 3 image 36), bilateral GRINDER 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 bilateral thalami (series 3 image 36), bilateral GRINDER 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 bilateral thalami (series 3 image 36), bilateral GRINDER 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
--- OUTSIDE RECORDS SUMMARY | 2022-09-20 14:14 | XMS_ITS | Encounter Summary ---
:1965 Author Organization [facility] Address 200 [place] [address] Care Team Providers Name Role Phone Unavailable Primary Care Provider Unavailable Encounter Details Date Type Department Care Team Description 12/31/2020 Orders Only Department of Robert Diehl Stroke Cereb rovascular Accident Personal History (Primary Dx); Neurology in [place] Thrombosis Arterial (HCC) [place], [place] 200 [facility] 200 [place] [phone] Social History Tobacco Use Types Packs/Day Years [...] you attend zoroastrianism or Patient refused 2021 faith services? Do [...]
--- OUTSIDE RECORDS SUMMARY | 2022-09-20 14:14 | XMS_ITS | Encounter Summary ---
:1965 Author Organization [facility] Address [address] [place] [address] Care Team Providers Name Role Phone Unavailable Primary Care Provider Unavailable Reason for Visit Reason Onset Date Comments Medication Question 01/08/2020 Encounter Details Date Type Department Care Team Description 01/08/2020 Clinical Department of [place], Medication Communication Otorhinolaryngology in Wolfgang Manuel [place], [place] Lil[place] 200 [facility] [address] [place] [phone] [place] [address] Social History Tobacco Use Types Packs/Day Years [...] you attend amish or Patient refused 2021 mandaen services? Do [...] not covered. Patient will do regular Flonase DIRECTOR Telephone Encounter - Donna Martines - 01/08/2020 4:21 PM CST [facility] called about the Fluticasone Propionate (Flonase) prescription that was put through today. The insurance will not cover it because at the end of the SIG it says Sensimist. Please call the pharmacy at [phone], or place another order. Thank you, Donna DIRECTOR documented in this encounter Plan of Treatment Not on filedocumented as of this encounter Visit Diagnoses Not on filedocumented in this encounter Additional Health Concerns Assessment Noted Time PHQ-9 Depression Total Score: 5 04/05/2019 8:00 AM CDT documented as of this encounter
--- OUTSIDE RECORDS SUMMARY | 2022-09-20 14:14 | XMS_ITS | Encounter Summary ---
:1965 Author Organization [facility] Address [address] [place] [address] Care Team Providers Name Role Phone Unavailable Primary Care Provider Unavailable Reason for Referral MRI/CAT/PET Scan (Routine) - Closed Specialty Diagnoses / Procedures Referred By Contact Refer red To Contact Radiology Diagnoses Ataxia Robert Fowler M.D. [facility] Procedures CT Head Neck Angiogram with IV Contrast 200 [place] [address] Referral ID Status Reason Start Date Expiration Date Visits Requ ested Visits Authorized [id number] Closed 12/31/2020 12/31/2021 1 1 ON REHABILITATION THERAPIST Outpatient (Routine) - Closed Specialty Diagnoses / Procedures Referred By Contact Refer red To Contact Video Medicine Diagnoses Stroke Cerebrovascular Accident Personal History Robert Fowler [facility] Margot Quintana 200 [place] [address] Referral ID Status Reason Start Date Expiration Date Visits Requ ested Visits Authorized [id number] Closed 12/30/2020 12/30/2021 1 1 ON REHABILITATION THERAPIST MRI/CAT/PET Scan (Routine) - Closed Specialty Diagnoses / Procedures Referred By Contact Refer red To Contact Radiology Diagnoses Ataxia Robert Fowler M.D. [facility] Procedures CT Head Neck Angiogram with IV Contrast [address] [place] [address] Referral ID Status Reason Start Date Expiration Date Visits Requ ested Visits Authorized [id number] Closed 12/30/2020 12/30/2021 1 1 ON REHABILITATION THERAPIST MRI/CAT/PET Scan (Routine) - Closed Specialty Diagnoses / Procedures Referred By Contact Refer red To Contact Radiology Diagnoses Stroke Cerebrovascular Accident Personal History Robert Fowler M.D. [facility] [facility] Procedures CT Head without IV Contrast [address] [place] [address] Referral ID Status Reason Start Date Expiration Date Visits Requ ested Visits Authorized [id number] Closed 12/30/2020 12/30/2021 1 1 ON REHABILITATION THERAPIST Reason for Visit Reason Comments Symptom Assessment Encounter Details Date Type Department Care Team Description 12/22/2020 Clinical Communication Department of Robert Fowler mptom Assessment Neurology jimmy Celaya M.D. [place], [address] [place], [place] [address] [facility] [address] [place], [place] [phone] (Work) [phone] Social History Tobacco Use Types Packs/Day Years [...] you attend jew or Patient refused 2021 evangelical services? Do [...] Robert Fowler M.D. - 12/31/2020 5:17 PM VISION REHABILITATION THERAPIST Addended by: ROBERT FOWLER on: 12/31/2020 05:17 PM Modules accepted: Orders ON REHABILITATION THERAPIST Addendum Note - oRbert Fowler M.D. - 12/30/2020 8:34 AM VISION REHABILITATION THERAPIST Addended by: ROBERT FOWLER on: 12/30/2020 08:34 AM Modules accepted: Orders ON REHABILITATION THERAPIST Telephone Encounter - Zuly Alex R.N. - 12/29/2020 4:48 PM CST The patient telephones back today. She did present to the local ED in [place] for evaluation of her vertigo. She shares [...] get in contact with her [facility] neurologist. The patient reports that at [...] her to [facility] as well. She agrees to call 911 for recurrent episodes. RECOMMENDED LEVEL OF CARE. The patient/caller is willing and able to follow the nurse's recommendation. RESPONSE TO ADVICE GIVEN. Patient/caller able to teach back. REFERENCES UTILIZED. Nursing clinical judgment utilized. Other interventions or information: Provider advice. TYPE OF PHONE CALL. Symptom assessment. ON REHABILITATION THERAPIST Telephone Encounter - Robert Fowler M.D. - [...] by: Robert Fowler M.D. 12/23/20 8:21 AM VISION REHABILITATION THERAPIST ON REHABILITATION THERAPIST Telephone Encounter - Zuly Alex R.N. - 12/22/2020 5:25 PM CST 5:17 pm. Tried calling to assure she could reach her son to take her to the ED. No answer. ON REHABILITATION THERAPIST Telephone Encounter - Zuly Alex R.N. - [...] her to the nearest emergency room or [id number]. She expressed concerns about going to the [...] the nearest ED which would be in [place]. He did not answer. I offered to call 911 forher. She declined this. She states she will get a hold of her son to take her to the ED. RECOMMENDED LEVEL OF CARE. The patient/caller is willing and able to follow the nurse's recommendation with multiple reinforcements. REFERENCES UTILIZED. Nursing clinical judgment utilized. Other interventions or information: Provider advice. TYPE OF PHONE CALL. Symptom assessment. ON REHABILITATION THERAPIST Telephone Encounter - Robert Fowler M.D. - 12/22/2020 3:29 PM CST Please call patient in triage whether she needs to be seen in the local emergency department for concern of acute stroke? ON REHABILITATION THERAPIST documented in this encounter Plan of Treatment Scheduled Referrals Name Type Priority Associated Diagnoses Order S chedule Video anyplace Outpatient Referral Routine Stroke Cerebrovascu lar Expected: visit Accident Personal 12/30/2020 , History Expires: 12/30/2023 documented as of this encounter Results CT Head Neck Angiogram with IV Contrast (01/30/2021 3:24 PM VISION REHABILITATION THERAPIST) Anatomical Region Laterality Modality Head and Neck, Neuroradiology RST LOS, N/A C omputed Tomography, Computed Neuroradiology ARZ LOS, Neuroradiology T omography FLA LOS Specimen (Source) Anatomical Collection Method Collection Time Re ceived Time Location / / Volume Laterality 01/30/2021 2:25 PM VISION REHABILITATION THERAPIST Impressions 01/30/2021 3:18 PM VISION REHABILITATION THERAPIST 1. 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 Slightly decreased high-grade stenosis a t the V3/4 junction with increased flow in the distal V4 segment. 2. Evolving, now chronic right cerebella r infarct. 3. 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 Narrative 01/30/2021 3:18 PM VISION REHABILITATION THERAPIST EXAM: CT HEAD NECK ANGIOGRAM WITH IV [...] normal caliber bilater al MCAs, ACAs and docketing specialist. Patent anterior and right posterior communicating [...] normal caliber bilater al MCAs, ACAs and docketing specialist. Patent anterior and right posterior communicating [...] ICA supraclinoid and para clinoid aneurysms. Robert Fowler M.D. IMG CT PROCEDURES CT Head Neck Angiogram with IV Contrast (12/31/2020 3:34 PM VISION REHABILITATION THERAPIST) Anatomical Region Laterality Modality Head and Neck, Neuroradiology RST LOS, N/A C omputed Tomography, Computed Neuroradiology ARZ LOS, Neuroradiology T omography FLA [facility] Specimen (Source) Anatomical Collection Method Collection Time Re ceived Time Location / / Volume Laterality 12/31/2020 3:49 PM VISION REHABILITATION THERAPIST Impressions 12/31/2020 4:54 PM VISION REHABILITATION THERAPIST 1. Evolving right cerebellar infarct with decreased [...] oid ICA aneurysms. Narrative 12/31/2020 4:54 PM VISION REHABILITATION THERAPIST EXAM: CT HEAD WITHOUT IV CONTRAST, CT [...] Findings discussed with ordering physicDr. Fazal crandall ([id number]) at 4:54 PM on 12/31/2020. Procedure Note [...] discussed with ordering physici Dr. Fazal abbasi ([id number]) at 4:54 PM on 12/31/2020. IMPRESSION: 1. [...] Head without IV Contrast (12/31/2020 3:34 PM VISION REHABILITATION THERAPIST) Anatomical Region Laterality Modality Head, Neuroradiology RST LOS, N/A Computed T omography, Computed Neuroradiology ARZ LOS, Neuroradiology T omography FLA LOS Specimen (Source) Anatomical Collection Method Collection Time Re ceived Time Location / / Volume Laterality 12/31/2020 3:49 PM VISION REHABILITATION THERAPIST Impressions 12/31/2020 4:54 PM VISION REHABILITATION THERAPIST 1. Evolving right cerebellar infarct with decreased [...] oid ICA aneurysms. Narrative 12/31/2020 4:54 PM VISION REHABILITATION THERAPIST EXAM: CT HEAD WITHOUT IV CONTRAST, CT [...] discussed with ordering physici Dr. Fazal abbasi ([id number]) at 4:54 PM on 12/31/2020. Procedure Note [...] Findings discussed with ordering Dr. Fazal ching ([id number]) at 4:54 PM on 12/31/2020. IMPRESSION: 1. [...]
--- OUTSIDE RECORDS SUMMARY | 2022-09-20 14:14 | XMS_ITS | Encounter Summary ---
:1965 Author Organization [facility] Address [address] [place] [address] Care Team Providers Name Role Phone Unavailable Primary Care Provider Unavailable Encounter Details Date Type Department Care Team Description 01/07/2021 Anticoagulation Visit Department of Neurology Zuly Alex, in [facility] R.N. [address] [facility] [address] [place] [phone] Social History Tobacco Use Types Packs/Day Years [...] you attend denominational or Patient refused 2021 nondenominational services? Do [...] is 2.28. Discussed with Dr. Ashley Castrejon ([id number]) who advises that the patient take 5 [...] OF PHONE CALL. Test results, symptom assessment. 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 documented in this encounter Results Prothrombin Time (PT) (01/07/2021) P athologist Signature EXT INR 2.28 OTHER (SPECIFY IN ERP SPECIALIST) Specimen (Source) Anatomical Location Collection Method / Collectio n Time Received Time / Laterality Volume Blood (Blood, 01/07/2021 Venous) Narrative This result has an attachment that is no t available. Historical Provider LAB BLOOD ADD-ON Performing Organization Address City/State/ZIP Code Phon e Number OTHER (SPECIFY IN ERP SPECIALIST) OTHER (SPECIFY IN ERP SPECIALIST) N/A documented in this encounter Visit Diagnoses Not on filedocumented in this encounter Additional Health Concerns Assessment Noted Time PHQ-9 Depression Total Score: 5 04/05/2019 8:00 AM CDT documented as of this encounter
--- OUTSIDE RECORDS SUMMARY | 2022-09-20 14:14 | XMS_ITS | Encounter Summary ---
:1965 Author Organization [facility] Address [address] [place] [address] Care Team Providers Name Role Phone Unavailable Primary Care Provider Unavailable Reason for Visit Reason Comments Pre-visit Intake Encounter Details Date Type Department Care Team Description 01/29/2021 Clinical Communication Department of Robert Diehl e-visit Intake Neurology in Lilian Celaya [place], [facility] [place], [place] [address] [place] [address] [place], [place] [phone] (Work) [phone] Social History Tobacco Use Types Packs/Day Years [...]
--- OUTSIDE RECORDS SUMMARY | 2022-09-20 14:14 | XMS_ITS | Encounter Summary ---
:1965 Author Organization [facility] Address [address] [place] [address] Care Team Providers Name Role Phone Unavailable Primary Care Provider Unavailable Encounter Details Date Type Department Care Team Description 01/05/2021 Anticoagulation Visit Department of Neurology Elvira Villalta, in [facility] R.N. [address] [facility] [address] [place] [phone] Social History Tobacco Use Types Packs/Day Years [...] you attend baptist or Patient refused 2021 yazdanism services? Do [...] an INR at her outside clinic in [place], [place] today and I called the lab [phone] and was told she did not report [...] advised for today, she report to the [place] lab as scheduled. Ms. Mosquera states she will do that. RECOMMENDED LEVEL OF CARE. The patient/caller is willing and able to follow the nurse's recommendation. RESPONSE TO ADVICE GIVEN. Patient/caller able to teach back. REFERENCES UTILIZED. Nursing clinical judgment utilized. Other interventions or information: Provider advice. TYPE OF PHONE CALL. INR management LY PRACTICE MD Elvira Villalta R.N. - 01/05/2021 4:06 PM CST Patient's INR today is 1.47. Discussed with Dr. Neri Acevedo ([id number]) who advises that the patient take 7.5 [...] PHONE CALL. Test results, symptom assessment. LY PRACTICE MD documented in this encounter Plan of Treatment Not on filedocumented as of this encounter Procedures Procedure Name Priority Date/Time Associated Comments Diagnosis PROTHROMBIN TIME Routine 01/05/2021 3:15 PM Resul ts for this (PT), P FAMILY PRACTICE MD procedure are i n the results section. documented in this encounter Results Prothrombin Time (PT) (01/05/2021 3:15 PM FAMILY PRACTICE MD) P athologist Signature EXT INR 1.47 OTHER (SPECIFY IN FARM LOAN REPRESENTATIVE) Specimen (Source) Anatomical Collection Method Collection Time Re ceived Time Location / / Volume Laterality Blood (Blood, 01/05/2021 3:15 PM Venous) FAMILY PRACTICE MD Narrative This result has an attachment that is no t available. Resulting Agency Comment [facility] Historical Provider LAB BLOOD ADD-ON Performing Organization Address City/State/ZIP Code Phon e Number OTHER (SPECIFY IN FARM LOAN REPRESENTATIVE) OTHER (SPECIFY IN FARM LOAN REPRESENTATIVE) N/A documented in this encounter Visit Diagnoses Not on filedocumented in this encounter Additional Health Concerns Assessment Noted Time PHQ-9 Depression Total Score: 5 04/05/2019 8:00 AM CDT documented as of this encounter
--- OUTSIDE RECORDS SUMMARY | 2022-09-20 14:14 | XMS_ITS | Encounter Summary ---
:1965 Author Organization [facility] Address [address] [place] [address] Care Team Providers Name Role Phone Unavailable Primary Care Provider Unavailable Encounter Details Date Type Department Care Team Description 01/12/2021 Anticoagulation Visit Department of Neurology Zuly Alex, in [facility] R.N. 1216 [facility] [address] [place] [phone] Social History Tobacco Use Types Packs/Day Years [...] you attend anglican or Patient refused 2021 restorationist services? Do [...] Target INR 2.0-3.[address] Argenis Diehl ([id number]). The patient was scheduled for an INR recheck on 01/09/21, however did not have an INR draw until late that afternoon. The results did not become available until after clinic hours. Patient's INR on 01/09/21 was 2.[address]. Discuss[address] with Dr. Argenis Diehl ([id number]) who advises that the patient follow a [...] PHONE CALL. Test results, symptom assessment. E POLISHER documented in this encounter Plan of Treatment Not on filedocumented as of this encounter Procedures Procedure Name Priority Date/Time Associated Diagnosis Comme nts PROTHROMBIN TIME (PT), Routine 01/09/2021 Resul ts for this P procedure are i n the results section . documented in this encounter Results Prothrombin Time (PT) (01/09/2021) P athologist Signature EXT INR 2.40 OTHER (SPECIFY IN SECOND CLASS WELDER) Specimen (Source) Anatomical Location Collection Method / Collectio n Time Received Time / Laterality Volume Blood (Blood, 01/09/2021 Venous) Narrative This result has an attachment that is no t available. Historical Provider LAB BLOOD ADD-ON Performing Organization Address City/State/ZIP Code Phon e Number OTHER (SPECIFY IN SECOND CLASS WELDER) OTHER (SPECIFY IN SECOND CLASS WELDER) N/A documented in this encounter Visit Diagnoses Not on filedocumented in this encounter Additional Health Concerns Assessment Noted Time PHQ-9 Depression Total Score: 5 04/05/2019 8:00 AM CDT documented as of this encounter
--- OUTSIDE RECORDS SUMMARY | 2022-09-20 14:14 | XMS_ITS | Encounter Summary ---
:1965 Author Organization [facility] Address [address] [place] [address] Care Team Providers Name Role Phone Unavailable Primary Care Provider Unavailable Reason for Visit Reason Comments Michel Encounter Details Date Type Department Care Team Description 09/11/2020 Clinical Communication Department of Robert Diehl W8B/Scharf Neurology in .. [place], [place] [address] [place] [address] 200 [place] [phone] [phone] Social History Tobacco Use Types Packs/Day Years [...] you attend religion or Patient refused 2021 yazdanism services? Do [...]
--- OUTSIDE RECORDS SUMMARY | 2022-09-20 14:14 | XMS_ITS | Encounter Summary ---
:1965 Author Organization [facility] Address [address] [place] [address] Care Team Providers Name Role Phone Unavailable Primary Care Provider Unavailable Reason for Referral MRI/CAT/PET Scan (Routine) - Closed Specialty Diagnoses / Procedures Referred By Contact Refer red To Contact Radiology Diagnoses Ataxia Robert Diehl M.D. [facility] Procedures CT Head Neck Angiogram with IV Contrast [address] [place] [address] Referral ID Status Reason Start Date Expiration Date Visits Requ ested Visits Authorized [id number] Closed 12/30/2020 12/30/2021 1 1 MOBILE DEALER MRI/CAT/PET Scan (Routine) - Closed Specialty Diagnoses / Procedures Referred By Contact Refer red To Contact Radiology Diagnoses Stroke Cerebrovascular Accident Personal History Robert Diehl M.D. [facility] Procedures CT Head without IV Contrast [address] [place] [address] Referral ID Status Reason Start Date Expiration Date Visits Requ ested Visits Authorized [id number] Closed 12/30/2020 12/30/2021 1 1 MOBILE DEALER Reason for Visit MRI/CAT/PET Scan (Routine) - Closed Specialty Diagnoses / Procedures Referred By Contact Refer red To Contact Radiology Diagnoses Ataxia Robert Diehl M.D. [facility] Procedures CT Head Neck Angiogram with IV Contrast [address] [place] [address] Referral ID Status Reason Start Date Expiration Date Visits Requ ested Visits Authorized [id number] Closed 12/30/2020 12/30/2021 1 1 Encounter Details Date Type Department Care Team Description 12/31/2020 Hospital Encounter Department of Robert Diehl Stroke Cerebrovascular Accident Personal History; Radiology, Severiano Celaya M.D. [facility], in [address] [facility] [address] [address] [facility] [phone] [place], [place] (Work) [phone] Social History Tobacco Use Types Packs/Day Years [...] you attend hoahaoism or Patient refused 2021 islam services? Do [...] breakfast. estradiol (VIVELLE-DOT) APPLY 1 PATCH TWICE 10/201902/02/2021 0.1 mg/24 hr patch WEEKLY on [...] Robert Diehl M.D. - 12/31/2020 5:17 PM AUTOMOBILE DEALER I called and discussed the results with [...] by: Robert Diehl M.D. 12/31/20 5:16 PM AUTOMOBILE DEALER Stroke Cerebrovascular Accident Personal History Plan: CT Head without IV Contrast, CT Head without IV Contrast Ataxia Plan: CT Head Neck Angiogram with IV Contrast, CT Head Neck Angiogram with IV Contrast MOBILE DEALER documented in this encounter Plan of Treatment Not on filedocumented as of this encounter Procedures Procedure Name Priority Date/Time Associated Diagnosis Comme nts CT HEAD WITHOUT RAD - Routine 12/31/2020 3:34 Stroke Results for IV CONTRAST (most inpatients PM AUTOMOBILE DEALER Cerebrovascular this pro cedure and all Accident Personal are in the outpatients) History results section. CT HEAD NECK RAD - Routine 12/31/2020 3:34 Ataxia Results for ANGIOGRAM WITH (most inpatients PM AUTOMOBILE DEALER this proc edure IV CONTRAST and all are in the outpatients) results section. documented in this encounter Results CT Head Neck Angiogram with IV Contrast (12/31/2020 3:34 PM AUTOMOBILE DEALER) Anatomical Region Laterality Modality Head and Neck, Neuroradiology RST LOS, N/A C omputed Tomography, Computed Neuroradiology ARZ LOS, Neuroradiology T omography FLA [facility] Specimen (Source) Anatomical Collection Method Collection Time Re ceived Time Location / / Volume Laterality 12/31/2020 3:49 PM AUTOMOBILE DEALER Impressions 12/31/2020 4:54 PM AUTOMOBILE DEALER 1. Evolving right cerebellar infarct with decreased [...] oid ICA aneurysms. Narrative 12/31/2020 4:54 PM AUTOMOBILE DEALER EXAM: CT HEAD WITHOUT IV CONTRAST, CT [...] discussed with ordering physici Dr. Fazal abbasi ([id number]) at 4:54 PM on 12/31/2020. Procedure Note [...] discussed with ordering physici Dr. Fazal abbasi ([id number]) at 4:54 PM on 12/31/2020. IMPRESSION: 1. [...] Head without IV Contrast (12/31/2020 3:34 PM AUTOMOBILE DEALER) Anatomical Region Laterality Modality Head, Neuroradiology RST LOS, N/A Computed T omography, Computed Neuroradiology ARZ LOS, Neuroradiology T omography FLA LOS Specimen (Source) Anatomical Collection Method Collection Time Re ceived Time Location / / Volume Laterality 12/31/2020 3:49 PM AUTOMOBILE DEALER Impressions 12/31/2020 4:54 PM AUTOMOBILE DEALER 1. Evolving right cerebellar infarct with decreased [...] oid ICA aneurysms. Narrative 12/31/2020 4:54 PM AUTOMOBILE DEALER EXAM: CT HEAD WITHOUT IV CONTRAST, CT [...] Findings discussed with ordering physicDr. Fazal crandall ([id number]) at 4:54 PM on 12/31/2020. Procedure Note [...] Findings discussed with ordering physici anDr. Diehl ([id number]) at 4:54 PM on 12/31/2020. IMPRESSION: 1. [...] mg iodine/mL solution Given 12/31/2020 3:34 PM AUTOMOBILE DEALER 1 00 mL 1-200 mL (OMNIPAQUE) 1-200 mL, intravenous, Once in imaging, contrast, Starting on Tue12/31/20 at 1411, For 1 dose, Imaging Protocol Orders, Dose per Radiant Medication Guidelines sodium chloride (PF) 0.9 % injection 1-1 00 mL Given 12/31/2020 3:34 PM AUTOMOBILE DEALER 35 mL 1-100 mL, intravenous, Once, On Tue12/31/20 at 1415, For 1 dose, Imaging Protocol Orders documented in this encounter Additional Health Concerns Assessment Noted Time PHQ-9 Depression Total Score: 5 04/05/2019 8:00 AM CDT documented as of this encounter
--- OUTSIDE RECORDS SUMMARY | 2022-09-20 14:14 | XMS_ITS | Encounter Summary ---
:1965 Author Organization [facility] Address [address] [place] [address] Care Team Providers Name Role Phone Unavailable [...] you attend uatsdin or Patient refused 2021 christian services? Do [...] 01/08/2020 3:15 Results for this EXAM PM STUDENT DEVELOPMENT DEAN procedure are i n the results section. documented in this encounter Results NOSE-Otorhinolaryngology Image Exam (01/08/2020 3:15 PM STUDENT DEVELOPMENT DEAN) Specimen (Source) Anatomical Collection Method Collection Time Re ceived Time Location / / Volume Laterality 01/08/2020 3:11 PM STUDENT DEVELOPMENT DEAN Narrative IIMS - 01/08/2020 3:29 PM STUDENT DEVELOPMENT DEAN This order has been created and auto-finalized [...]
--- OUTSIDE RECORDS SUMMARY | 2022-09-20 14:14 | XMS_ITS | Encounter Summary ---
:1965 Author Organization [facility] Address [address] [place] [address] Care Team Providers Name Role Phone Unavailable Primary Care Provider Unavailable Reason for Referral MRI/CAT/PET Scan (Routine) - Closed Specialty Diagnoses / Procedures Referred By Contact Refer red To Contact Radiology Diagnoses Ataxia Robert Diehl M.D. [facility] Procedures CT Head Neck Angiogram with IV Contrast [address] [place] [address] Referral ID Status Reason Start Date Expiration Date Visits Requ ested Visits Authorized [id number] Closed 12/31/2020 12/31/2021 1 1 LER APPRENTICE Reason for Visit MRI/CAT/PET Scan (Routine) - Closed Specialty Diagnoses / Procedures Referred By Contact Refer red To Contact Radiology Diagnoses Ataxia Robert Diehl M.D. [facility] Procedures CT Head Neck Angiogram with IV Contrast [address] [place], [place] [address] Referral ID Status Reason Start Date Expiration Date Visits Requ ested Visits Authorized [id number] Closed 12/31/2020 12/31/2021 1 1 Encounter Details Date Type Department Care Team Description 01/30/2021 Hospital Encounter Department of Radiology, Akhil Diehl Ataxia [facility], in M.D. [place], [place] [address] [facility] [address] [place] [phone] (Wo rk) Social History Tobacco Use Types [...] you attend quaker or Patient refused 2021 rastafari services? Do [...] this ANGIOGRAM WITH IV (most inpatients PM COBBLER APPRENTICE proced ure are in CONTRAST and all the results outpatients) section. documented in this encounter Results CT Head Neck Angiogram with IV Contrast (01/30/2021 3:24 PM COBBLER APPRENTICE) Anatomical Region Laterality Modality Head and Neck, Neuroradiology RST LOS, N/A C omputed Tomography, Computed Neuroradiology ARZ LOS, Neuroradiology T omography FLA [facility] Specimen (Source) Anatomical Collection Method Collection Time Re ceived Time Location / / Volume Laterality 01/30/2021 2:25 PM COBBLER APPRENTICE Impressions 01/30/2021 3:18 PM COBBLER APPRENTICE 1. 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 Slightly decreased high-grade stenosis a t the V3/4 junction with increased flow in the distal V4 segment. 2. Evolving, now chronic right cerebella r infarct. 3. 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 Narrative 01/30/2021 3:18 PM COBBLER APPRENTICE EXAM: CT HEAD NECK ANGIOGRAM WITH IV [...] normal caliber bilater al MCAs, ACAs and script coordinator. Patent anterior and right posterior communicating arteri [...] normal caliber bilater al MCAs, ACAs and script coordinator. Patent anterior and right posterior communicating arteri [...] mg iodine/mL solution Given 01/30/2021 2:29 PM COBBLER APPRENTICE 1 00 mL 1-200 mL (OMNIPAQUE) 1-200 mL, intravenous, Once in imaging, contrast, Starting on Tue01/30/21 at 1355, For 1 dose, Imaging Protocol Orders, Dose per Radiant Medication Guidelines sodium chloride (PF) 0.9 % injection 1-1 00 mL Given 01/30/2021 2:29 PM COBBLER APPRENTICE 35 mL 1-100 mL, intravenous, Once, On Tue01/30/21 at 1400, For 1 dose, Imaging Protocol Orders documented in this encounter Additional Health Concerns Assessment Noted Time PHQ-9 Depression Total Score: 5 04/05/2019 8:00 AM CDT documented as of this encounter
--- OUTSIDE RECORDS SUMMARY | 2022-09-20 14:14 | XMS_ITS | Encounter Summary ---
:1965 Author Organization [facility] Address [address] [place] [address] Care Team Providers Name Role Phone Unavailable Primary Care Provider Unavailable Reason for Visit Reason Comments Michel Encounter Details Date Type Department Care Team Description 01/26/2021 Clinical Communication Department of Robert Diehl W8B/Schar[facility] Neurology in .[place], [place] 200 [facility] [address] [place] [phone] Social History Tobacco Use Types Packs/Day Years [...] you attend bahai or Patient refused 2021 worship services? Do [...] 01/26/2021 5:19 PM CST Great thank you INATION MACHINE TOOL OPERATOR Addendum Note - Robert Diehl M.D. - 01/26/2021 2:50 PM COMBINATION MACHINE TOOL OPERATOR Addended by: ROBERT DIEHL on: 01/26/2021 02:50 PM Modules accepted: Orders INATION MACHINE TOOL OPERATOR Telephone Encounter - Robert Diehl M.D. - 01/26/2021 2:49 PM CST Believe MRI is ordered now. INATION MACHINE TOOL OPERATOR Telephone Encounter - Robert Diehl M.D. - 01/26/2021 2:47 PM CST I am sorry to learn of the patient's additional symptoms Unfortunately we cannot react as quickly as the emergency department which was recommended locally I will order a brain MRI and in-person or video visit to follow-up. Thank you INATION MACHINE TOOL OPERATOR Telephone Encounter - Allyssa Amaya - 01/26/2021 12:56 PM CST Patient calls checking the status of this request. Thank you. INATION MACHINE TOOL OPERATOR documented in this encounter Plan of Treatment Not on filedocumented as of this encounter Visit Diagnoses Diagnosis Stroke Cerebrovascular Accident Personal History - Primary documented in this encounter Additional Health Concerns Assessment Noted Time PHQ-9 Depression Total Score: 5 04/05/2019 8:00 AM CDT documented as of this encounter
--- OUTSIDE RECORDS SUMMARY | 2022-09-20 14:14 | XMS_ITS | Encounter Summary ---
:1965 Author Organization [facility] Address [address] [place] [address] Care Team Providers Name Role Phone Unavailable [...] 12/18/2019 1:57 Results for this EXAM PM SALES PERFORMANCE ANALYST procedure are i n the results section. documented in this encounter Results NOSE-Otorhinolaryngology Image Exam (12/18/2019 1:57 PM SALES PERFORMANCE ANALYST) Specimen (Source) Anatomical Collection Method Collection Time Re ceived Time Location / / Volume Laterality 12/18/2019 1:57 PM SALES PERFORMANCE ANALYST Narrative IIMS - 12/18/2019 1:57 PM SALES PERFORMANCE ANALYST This order has been created and auto-finalized [...]
--- OUTSIDE RECORDS SUMMARY | 2022-09-20 14:14 | XMS_ITS | Encounter Summary ---
:1965 Author Organization [facility] Address [address] [place] [address] Care Team Providers Name Role Phone Unavailable Primary Care Provider Unavailable Encounter Details Date Type Department Care Team Description 01/20/2021 Clinical Communication Department of Elvira Villalta, Neurology in [place], [place] [address] [place] [address] [address] [place] [phone] Social History Tobacco Use Types Packs/Day Years [...] you attend scientology or Patient refused 2021 orthodox services? Do [...]
--- OUTSIDE RECORDS SUMMARY | 2022-09-20 14:14 | XMS_ITS | Encounter Summary ---
:1965 Author Organization [facility] Address [address] [place] [address] Care Team Providers Name Role Phone Unavailable Primary Care Provider Unavailable Encounter Details Date Type Department Care Team Description 01/16/2021 Anticoagulation Visit Department of Elvira Villalta ([facility]) (Primary Dx); Neurology in [place] Anticoagulant Treatment [place] [address] [place], [place] [address] [place] [address] [place], [place] [phone] (Work) [phone] Social History Tobacco Use Types Packs/Day Years [...] [facility] INR 2.0-3.[address] Argenis Diehl ([phone]). The patient was scheduled for an INR recheck on 01/19/21 but we received a message that she had it drawn today, 01/16/21, by [facility] Nurse. I spoke with RADHA Roman [facility] and she relays that the home POC INR today is 3.9. I discussed this with Dr. Argenis Diehl ([phone]) who advises that the patient follow a [...] her primary care provider, Dr. Neri Blackwell, [facility], [place], [place]. I have put in a call for Dr. Blackwell's care team to call us back. Will schedule an INR recheck for 01/20/21. I will fax a standing INR order to RADHA Roman, [facility], phone # [phone], fax #[phone]. She will fax results back to us. [...] OF PHONE CALL. Test results, symptom assessment. INE MOLDER SQUEEZE documented in this encounter Plan of Treatment Not on filedocumented as of this encounter Procedures Procedure Name Priority Date/Time Associated Comments Diagnosis PROTHROMBIN TIME Routine 01/16/2021 2:10 PM Resul ts for this (PT), P MACHINE MOLDER SQUEEZE procedure are i n the results section. documented in this encounter Results Prothrombin Time (PT) (01/16/2021 2:10 PM MACHINE MOLDER SQUEEZE) P athologist Signature EXT INR 3.90 OTHER (SPECIFY IN OILFIELD PLANT AND FIELD OPERATOR) Specimen (Source) Anatomical Collection Method Collection Time Re ceived Time Location / / Volume Laterality Blood (Blood, 01/16/2021 2:10 PM Venous) MACHINE MOLDER SQUEEZE Resulting Agency Comment [facility] Historical Provider LAB BLOOD ADD-ON Performing Organization Address City/State/ZIP Code Phon e Number OTHER (SPECIFY IN OILFIELD PLANT AND FIELD OPERATOR) OTHER (SPECIFY IN OILFIELD PLANT AND FIELD OPERATOR) N/A documented in this encounter Visit Diagnoses Diagnosis Stroke (HCC) - Primary Bander (Current) Anticoagulant Treatm ent documented in this encounter Additional Health Concerns Assessment Noted Time PHQ-9 Depression Total Score: 5 04/05/2019 8:00 AM CDT documented as of this encounter
--- OUTSIDE RECORDS SUMMARY | 2022-09-20 14:14 | XMS_ITS | Encounter Summary ---
:1965 Author Organization [facility] Address [address] [place] [address] Care Team Providers Name Role Phone Unavailable Primary Care Provider Unavailable Encounter Details Date Type Department Care Team Description 08/05/2020 Clinical Communication Department of Honorio, Otorhinolaryngology in [place], [place] [address] [place], [place] [address] [facility] [phone] [place] [phone] Social History Tobacco Use Types Packs/Day Years [...] you attend restorationism or Patient refused 2021 judaism services? Do [...] called patient to schedule COVID testing at [place] prior to appointment. Didn't answer so jessica [...]
--- OUTSIDE RECORDS SUMMARY | 2022-09-20 14:14 | XMS_ITS | Encounter Summary ---
:1965 Author Organization [facility] Address [address] [place] [address] Care Team Providers Name Role Phone Unavailable Primary Care Provider Unavailable Encounter Details Date Type Department Care Team Description 01/07/2020 Diagnostic Division of Pulmonary Akhil Diehl M.D. [facility] Medicine in [place], [facility] [address] [place], [place] 200 [facility] [address] [place], [place] [address] [phone] Social History Tobacco Use Types Packs/Day Years [...] you attend christianity or Patient refused 2021 druze services? Do [...] Organization Address City/State/ZIP Code Phon e Number [place] [facility] documented in this encounter Visit Diagnoses Diagnosis Fatigue documented in this encounter Additional Health Concerns Assessment Noted Time PHQ-9 Depression Total Score: 5 04/05/2019 8:00 AM CDT documented as of this encounter
--- OUTSIDE RECORDS SUMMARY | 2022-09-20 14:14 | XMS_ITS | Encounter Summary ---
:1965 Author Organization [facility] Address [address] [place] [address] Care Team Providers Name Role Phone Unavailable Primary Care Provider Unavailable Reason for Visit Reason Comments Michel Encounter Details Date Type Department Care Team Description 09/04/2020 Clinical Communication Department of Robert Diehl W8B/Scharf Neurology in .. [place], [place] [address] [place] [address] 200 [place] [address] [phone] Social History Tobacco Use Types Packs/Day Years [...] you attend congregation or Patient refused 2021 mosque services? Do [...]
--- OUTSIDE RECORDS SUMMARY | 2022-09-20 14:14 | XMS_ITS | Encounter Summary ---
:1965 Author Organization [facility] Address [address] [place] [address] Care Team Providers Name Role Phone Unavailable Primary Care Provider Unavailable Reason for Visit Reason Comments Initiate warfarin anticoagulation. Encounter Details Date Type Department Care Team Description 01/01/2021 Clinical Communication Department of Renny Mahoney warfarin Neurology in L, R.N. anticoagulation. [place], [address] [place] [address] [address] [place] [phone] [place], [place] [phone] (Work) [phone] Social History Tobacco Use Types Packs/Day Years [...] you attend jewish or Patient refused 2021 nondenominational services? Do [...] PM CST RADHA Thompson, calls in from [facility] with INR results = 3.9. Please call her back at [phone] GER PLAY Telephone Encounter - Renny Mahoney R.N. - 01/05/2021 1:56 PM CST Mackenzie talked to her, she needs to go to the lab today. GER PLAY Telephone Encounter - Allyssa Amaya - 01/05/2021 11:14 AM CST Patient calls in regarding this. She is wanting this set up now so a nurse can come into her home and do this. She I believed mentions that a nurse comes into her home now. She would like a call to discuss. GER PLAY Telephone Encounter - Robert Diehl M.D. - 01/01/2021 4:46 PM CST Absolutely and thank you very much for coordinating this GER PLAY Addendum Note - Renny Mahoney R.N. - 01/01/2021 1:03 PM MANAGER PLAY Addended by: RENNY MAHONEY on: 01/01/2021 01:03 PM Modules accepted: Orders GER PLAY Telephone Encounter - Renny Mahoney R.N. - 01/01/2021 12:45 PM CST I spoke to the patient by telephone today to discuss reinitiating warfarin. The patient referred by Dr. Argenis Diehl ([id number]). The patient's target INR is 2.0-3.0. 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 The anticipated duration of warfarin is manager long term care. As per Dr. Diehl, the patient is to be instructed to discontinue the 325 mg aspirin once the target INR is reached. The patient shares that she is well aware of the risks/benefits and process of taking warfarin with regular INR monitoring. She declined the need for additional education by phone regarding anticoagulation. She would like to have her INRs drawn at [facility] with results faxed to us in [facility]. I spoke with her local primary care physician nurse about this as well. Once Dr. Diehl obtains imaging in about 3 months, we may consider transitioning her anticoagulation care to her local [facility]. The patient will take 5 mg warfarin nightly starting tonight 01/01/21, then have an INR drawn 01/05/21 at [facility] with results faxed to us. A prescription for warfarin 5 mg #30, take as directed, may refill X 1 was eprescribed to [facility]. The patient reported an adequate understanding of her plan of care and expressed agreement with thisplan. RECOMMENDED LEVEL OF CARE. The patient/caller is willing and able to follow the nurse's recommendation. RESPONSE TO ADVICE GIVEN. Patient/caller able to teach back. REFERENCES UTILIZED. Nursing clinical judgment utilized. Other interventions or information: Provider advice. TYPE OF PHONE CALL. Medical information, care coordination. . GER PLAY Addendum Note - Renny Mahoney R.N. - 01/01/2021 9:43 AM MANAGER PLAY Addended by: RENNY MAHONEY on: 01/01/2021 09:43 AM Modules accepted: Orders GER PLAY Telephone Encounter - Renny Mahoney R.N. - 01/01/2021 9:32 AM CST I have spoken with the pharmacist at [facility] in [place]. He notes that in 2018 when thepatient previously was treated with warfarin, she was taking 5 mg nightly for a period of time. Eventually some nights she was taking 7.5 mg nightly. The pharmacist reviewed potential medication interactions with the patient's current medication list. No serious interactions anticipated. As per Dr. Yeboah ([id number]), we will initiate 5 mg nightly. She will continue aspirin until therapeutic INR is reached. GER PLAY Telephone Encounter - Renny Mahoney R.N. - 01/01/2021 8:47 AM CST The patient has been experiencing episodes of vertigo, gait instability, with a fall, she was seen in the ED of [facility] on 12/22/20. Head CT was performed and sent to [facility] for Dr. Diehl's review. He noted [...] the patient's primary care team at the [facility]. I have discussed this with the patient who reports an ad equate understanding and agreement with this plan. RECOMMENDED LEVEL OF CARE. The patient/caller is willing and able to follow the nurse's recommendation. RESPONSE TO ADVICE GIVEN. Patient/caller able to teach back. REFERENCES UTILIZED. Nursing clinical judgment utilized. Other interventions or information: Provider advice. TYPE OF PHONE CALL. Care coordination. GER PLAY Telephone Encounter - Renny Mahoney R.N. - 01/01/2021 8:46 AM CST ----- Message from Robert Diehl M.D. sent at 12/31/2020 5:17 PM MANAGER PLAY ----- I called and discussed the results [...] Robert Diehl M.D. 12/31/20 5:16 PM MANAGER PLAY Stroke Cerebrovascular Accident Personal History Plan: CT Head without IV Contrast, CT Head without IV Contrast Ataxia Plan: CT Head Neck Angiogram with IV Contrast, CT Head Neck Angiogram with IV Contrast GER PLAY documented in this encounter Plan of Treatment Scheduled Orders Name Type Priority Associated Diagnoses Order S chedule Prothrombin Time (PT) Lab Routine Veterinary Receptionist Anticoagu lant 50 Occurrences starting Treatment 01/01/2021 unti l 01/01/2024 documented as of this encounter Visit Diagnoses Diagnosis Veterinary Receptionist (Current) Anticoagulant Treatm ent - Primary documented in this encounter Additional Health Concerns Assessment Noted Time PHQ-9 Depression Total Score: 5 04/05/2019 8:00 AM CDT documented as of this encounter
--- OUTSIDE RECORDS SUMMARY | 2022-09-20 14:14 | XMS_ITS | Encounter Summary ---
:1965 Author Organization [facility] Address [address] [place] [address] Care Team Providers Name Role Phone Unavailable Primary Care Provider Unavailable Encounter Details Date Type Department Care Team Description 08/06/2020 Clinical Communication Department of Honorio, Otorhinolaryngology in [place], [place] [address] [place] [address] [facility] [phone] Social History Tobacco Use Types Packs/Day Years [...] states that she had them done at [facility]. I called the facility and requested that [...] she had a CT Scan today in [place]. If her doctor there feels she needs [...]
--- OUTSIDE RECORDS SUMMARY | 2022-09-20 14:14 | XMS_ITS | Encounter Summary ---
:1965 Author Organization [facility] Address [address] [place] [address] Care Team Providers Name Role Phone Unavailable Primary Care Provider Unavailable Encounter Details Date Type Department Care Team Description 01/20/2021 Anticoagulation Visit Department of Neurology Elvira Villalta, in [facility] R.N. 1216 [facility] [address] [place] [phone] Social History Tobacco Use Types Packs/Day Years [...] of this encounter Progress Notes Elvira Villalta RBrittonN. - 01/20/2021 11:58 AM CST I received a call from Dr. Rosalva Aguila's nurse at [facility]. She states they have received [...] Transfer of anticoagulation management back to PCP. DEVELOPER documented in this encounter Plan of Treatment Not on filedocumented as of this encounter Visit Diagnoses Not on filedocumented in this encounter Additional Health Concerns Assessment Noted Time PHQ-9 Depression Total Score: 5 04/05/2019 8:00 AM CDT documented as of this encounter
--- OUTSIDE RECORDS SUMMARY | 2022-09-20 14:14 | XMS_ITS | Encounter Summary ---
:1965 Author Organization [facility] Address [address] [place] [address] Care Team Providers Name Role Phone Unavailable Primary Care Provider Unavailable Reason for Visit Reason Comments Follow-up [facility] Patient Encounter Details Date Type Department Care Team Description 12/29/2020 Clinical Communication [facility] Neurology jimmy Celaya M.D. Patient) [place], [facility] [place], [place] [address] [place] [phone] [place], [place] [phone] (Work) [phone] Social History Tobacco Use Types Packs/Day Years [...] you attend lutheran or Patient refused 2021 pentecostalism services? Do [...] her know PCP needs to prescribe meclizine. CUSTODIAN Telephone Encounter - Allyssa Amaya - 12/29/2020 [...] ambulance for; one of which lasted over amq-mbg-b-half days. She is having headaches, etc. 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
--- OUTSIDE RECORDS SUMMARY | 2022-09-20 14:14 | XMS_ITS | Encounter Summary ---
:1965 Author Organization [facility] Address [address] [place] [address] Care Team Providers Name Role Phone Unavailable Primary Care Provider Unavailable Reason for Referral Outpatient (Routine) - Closed Specialty Diagnoses / Procedures Referred By Contact Refer red To Contact Neurology Robert Diehl M. D. [facility] 200 [place] [address] Referral ID Status Reason Start Date Expiration Date Visits Requ ested Visits Authorized [id number] Closed 09/15/2020 09/15/2021 1 1 Reason for Visit Appointment Request (Routine) - Closed Specialty Diagnoses / Procedures Referred By Contact Refer red To Contact Neurology Referral ID Status Reason Start Date Expiration Date Visits Requ ested Visits Authorized [id number] Closed 07/31/2020 07/31/2021 1 1 Encounter Details Date Type Department Care Team Description 09/15/2020 Virtual Visit Department of Robert Diehl [place] An eurysm Nonruptured (HCC) (Primary Dx); Neurology in M.D. Nicotine Dependence ; [place], [place] 200 [facility] Aneurysm Cerebral Unruptured (HCC) [address] [place] [phone] Social History Tobacco Use Types Packs/Day [...] you attend anglican or Patient refused 2021 baptism services? Do [...] via the telephone and not in a qwog-gg-xzdf manner. Ms. Mosquera is a 55-year-old woman [...] Name Type Priority Associated Diagnoses Order S [facility] Neurology office Outpatient Referral Routine Expe cted: [...] nt right vertebral artery. RADHA, MCA, and service unit operator are patent. Neck MRA: Conventional three-vessel [...] nt right vertebral artery. RADHA, MCA, and service unit operator are patent. Neck MRA: Conventional three-vessel [...]
--- OUTSIDE RECORDS SUMMARY | 2022-09-20 14:14 | XMS_ITS | Encounter Summary ---
:1965 Author Organization [facility] Address [address] [place] [address] Care Team Providers Name Role Phone Unavailable Primary Care Provider Unavailable Reason for Visit Outpatient (Routine) - Closed Specialty Diagnoses / Procedures Referred By Contact Refer red To Contact Otorhinolaryngology Darlin Olmedo M.D . [facility] [address] [place] [phone] Referral ID Status Reason Start Date Expiration Date Visits Requ ested Visits Authorized [id number] Closed 12/18/2019 12/17/2020 1 1 Encounter Details Date Type Department Care Team Description 01/08/2020 Office Visit Department of Darlin Olmedo Mucocele Nasa l Sinus Otorhinolaryngology jimmy Brumfield M.D. (Primary Dx) [address] [place] [phone] Social History Tobacco Use Types Packs/Day Years [...] you attend mandaeism or Patient refused 2021 lutheran services? Do you belong to any clubs or No 05/17/2022 organizations such as mandaeism groups, [employer], [employer] or athletic groups, or school groups? [...] She will continue saline irrigations and Flonase. ICATION INSPECTOR Associated attestation - Darlin Olmedo M.D. - 01/16/2020 5:45 PM FABRICATION INSPECTOR I saw and evaluated the patient, participating [...]
--- OUTSIDE RECORDS SUMMARY | 2022-09-20 14:14 | XMS_ITS | Encounter Summary ---
:1965 Author Organization [facility] Address [address] [place] [address] Care Team Providers Name Role Phone Unavailable Primary Care Provider Unavailable Encounter Details Date Type Department Care Team Description 09/15/2020 Ancillary Procedure Department of Robert Diehl Aneurysm Radiology jimmy Celaya M.D. Nonruptured ([facility]) [place], [place] 200 [facility] 200 [place] [phone] Social History Tobacco Use Types Packs/Day Years [...] you attend hoahaoism or Patient refused 2021 roman catholic services? [...] nt right vertebral artery. RADHA, MCA, and boot repairer are patent. Neck MRA: Conventional three-vessel arch [...] nt right vertebral artery. RADHA, MCA, and boot repairer are patent. Neck MRA: Conventional three-vessel arch [...]
--- OUTSIDE RECORDS SUMMARY | 2022-09-20 14:14 | XMS_ITS | Encounter Summary ---
:1965 Author Organization [facility] Address [address] [place] [address] Care Team Providers Name Role Phone Unavailable Primary Care Provider Unavailable Reason for Visit Reason Comments shyam Encounter Details Date Type Department Care Team Description 07/29/2020 Clinical Communication Department of Robert Diehl w8b/[id number] Neurology in .. [place], [place] [address] [place] [address] 200 [place] [phone] Social History Tobacco Use Types Packs/Day Years [...] you attend quaker or Patient refused 2021 scientologist services? Do [...] for magnetic resonance angiogram be sent to [place]. José Miguel advise what the exact testing [...]
--- OUTSIDE RECORDS SUMMARY | 2022-09-20 14:15 | XMS_ITS | Encounter Summary ---
:1965 Author Organization [facility] Address [address] [place] [address] Care Team Providers Name Role Phone Unavailable Primary Care Provider Unavailable Reason for Visit Outpatient (Routine) - Closed Specialty Diagnoses / Procedures Referred By Contact Refer red To Contact General Surgery Diagnoses Rhinosinusitis Chronic Jey Santana M.D. [facility] [address] [place] [phone] Referral ID Status Reason Start Date Expiration Date Visits Requ ested Visits Authorized [id number] Closed 11/08/2019 11/07/2020 1 1 Encounter Details Date Type Department Care Team Description 11/29/2019 Comprehensive Visit Preoperative Jey Santana M.D. [address] [place] [phone] Preanesthetic Medical Exam (Primary Dx); Evaluation Center in Lanre Carvajal M.D. [address] [place] [phone] Rhinosinusitis Chronic [place], [place] [address] [place] [phone] Social History Tobacco Use Types Packs/Day Years [...] you attend orthodox or Patient refused 2021 presybeterian services? Do you belong to any clubs or No 05/17/2022 organizations such as orthodox groups, unions, fraBeijing Books[employer] or athletic groups, or school groups? How [...] Comments Blood Pressure 108/74 11/29/2019 12:45 PM HOG STICKER Pulse 104 11/29/2019 12:45 PM HOG STICKER Temperature 36.5 ??C (97.7 ??F) 11/29/2019 12:45 PM HOG STICKER Respiratory Rate - - Oxygen Saturation 96% 11/29/2019 12:45 PM HOG STICKER Inhaled Oxygen Concentration - - Weight 76.4 kg (168 lb 6.9 oz) 11/29/2019 12:45 PM HOG STICKER Height 151.7 cm (4' 11.72) 11/29/2019 12:45 PM HOG STICKER Body Mass Index 33.2 11/29/2019 12:45 PM HOG STICKER documented in this encounter H&P Notes Lanre Carvajal M.D. - 11/29/2019 12:45 PM CST Preoperative Medical Evaluation Patient Name: Angie Mosquera Age: 54 y.o. 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 I will not pursue anything further STICKER documented in this encounter Plan of Treatment Not on filedocumented as of this encounter Results Creatinine with Estimated GFR - for Lab Draw (11/29/2019 11:30 AM HOG STICKER) P athologist Signature Creatinine 0.98 0.59 - 11/29/2019 DTL 1.04 mg/dL 1:05 PM HOG STICKER eGFR-Non 65 >=60 11/29/2019 DTL Black/ mL/min/BSA 1:05 PM HOG STICKER Venezuelan Comment: ----ADDITIONAL INFORMATION---- Estimated GFR calculated using the 2009 CKD_EPI creatinine equation. eGFR-Black/ 75 >=60 mL/min/BSA 2019 1:05 PM HOG STICKER DTL Comment: ----ADDITIONAL INFORMATION---- Estimated GFR calculated using the 2009 CKD_EPI creatinine equation. Specimen Anatomical Collection Method Collection Time Receive d Time (Source) Location / / Volume Laterality Blood (Blood, 11/29/2019 11:30 11/29/2019 Venous) AM HOG STICKER 11:50 AM HOG STICKER Miranda Collado APRN, C.N.P., M.S.N. LAB BLOOD ADD-ON Performing Organization Address City/State/ZIP Code Phon e Number [facility] - [address] [place], [place] [address] [facility] [place] [place] [address] [facility] [address] documented in this encounter Visit Diagnoses Diagnosis Preanesthetic Medical Exam - Primary Rhinosinusitis Chronic documented in this encounter Additional Health Concerns Assessment Noted Time PHQ-9 Depression Total Score: 5 04/05/2019 8:00 AM CDT documented as of this encounter
--- OUTSIDE RECORDS SUMMARY | 2022-09-20 14:15 | XMS_ITS | Encounter Summary ---
:1965 Author Organization [facility] Address [address] [place] [address] Care Team Providers Name Role Phone Unavailable [...] you attend mormon or Patient refused 2021 mormon services? Do [...] 11/29/2019 3:10 Results for this EXAM PM TERRITORY ACCOUNT EXECUTIVE procedure are i n the results section. documented in this encounter Results NOSE-Otorhinolaryngology Image Exam (11/29/2019 3:10 PM TERRITORY ACCOUNT EXECUTIVE) Specimen (Source) Anatomical Collection Method Collection Time Re ceived Time Location / / Volume Laterality 11/29/2019 3:08 PM TERRITORY ACCOUNT EXECUTIVE Narrative [facility] - 11/29/2019 3:58 PM TERRITORY ACCOUNT EXECUTIVE This order has been created and auto-finalized [...]
--- OUTSIDE RECORDS SUMMARY | 2022-09-20 14:15 | XMS_ITS | Encounter Summary ---
:1965 Author Organization [facility] Address [address] [place] [address] Care Team Providers Name Role Phone Unavailable Primary Care Provider Unavailable Encounter Details Date Type Department Care Team Description 12/07/2019 Surgery RST ROMRadha MORAN OR Darlin Olmedo, SINUSOTOMY ENDOSCOPY [address] [facility] [place] [address] [address] [place] [address] [place] [phone] Social History Tobacco Use Types Packs/Day Years [...] you attend adventism or Patient refused 2021 pentecostalism services? Do [...] sinus rinse kit (jose ramon Dalal or [place]). - Follow the directions on the bottle [...] or with another department at [facility], an appointment willbe made for you. If you have not received specific details (date, time, location) within 2 weeks of discharge, please contact our office at [phone] to inquire. If you are to follow up somewhere other than [facility], please schedule this appointment (in the timeframe recommended by your surgeon)at your earliest convenience. CONTACT INFORMATION: If you need to reach the Department of ENT at the [facility] regarding any questions during normal business hours, please call . If you are calling after normal business hours and have a concern that needs to be addressed urgently, please call the [facility] Pastry Cook Apprentice at and ask to speak to the ENT resident almond blancher hand. ER ENGINEER AttachmentsThe following attachments cannot be sent through Care Everywhere.Your Scopolamine Patch (Central African)documented in this encounter Medications at Time of [...] Extradural computer navigation was registered according to marketing automation specialist's guidelines and confirmed to be accurate within [...] mL Implants None Darlin Olmedo M.D. ER ENGINEER Brief Op Note - Jey Santana [...] None Implants None Jey Santana M.D. 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 Case Notes HOUSING CASE MANAGER 10:37 documented in this encounter Visit Diagnoses Diagnosis Rhinosinusitis Chronic Mucocele Nasal Sinus documented in this encounter Administered Medications Inactive Administered Medications - up to 3 most recent administrations Medication Order MAR Action Action Date Dose Rate Site acetaminophen injection 1,000 New Bag 12/07/2019 2:38 PM 1,000 mg 400 mL/hr mg (OFIRMEV) SERVER ENGINEER 1,000 mg, intravenous, at 400 mL/hr, [...] 1,000 mg (TYLENOL) Given 12/07/2019 12:06 PM SERVER ENGINEER 1,000 mg 1,000 mg, oral, Once, On Tue12/07/19 at 1200, For 1 dose, Pre-Op aprepitant capsule 40 mg (EMEND) Given 12/07/2019 12:06 PM SERVER ENGINEER 40 mg 40 mg, oral, Once as needed, prevent ponv, Starting on Tue12/07/19 at 1145, For 1 dose, Pre-Op caffeine tablet 200 mg Given 12/07/2019 12:06 PM SERVER ENGINEER 200 mg 200 mg, oral, Once as needed, pre-op to prevent caffeine withdrawal headache or to enhance emergence from anesthesia/sedation, Starting on Tue12/07/19 at 1145, For 1 dose, Pre-Op, With sips cocaine 4 % external solution Given 12/07/2019 1:10 PM SERVER ENGINEER 4 mL Other As needed, Starting on Tue12/07/19 at 1310, Intra-Op droperidol injection 0.625 mg (INAPSINE) Given 12/07/2019 2:37 PM SERVER ENGINEER 0.625 mg 0.625 mg, intravenous, Every [...] 25 mcg (SUBLIMAZE) Given 12/07/2019 2:32 PM SERVER ENGINEER 25 mcg 25 mcg, intravenous, Every 2 min PRN, For pain 4 or greater (maximum 100 mcg). If max dose of Fentanyl is reached and if pain is greater than 4, discontinue Fentanyl: give Hydromorphone, Starting on Tue12/07/19 at 1145, Pre-Op ketamine injection 10 mg (KETALAR) Given 12/07/2019 2:37 PM SERVER ENGINEER 10 mg 10 mg, intravenous, Once as needed, Pain sedation mismatch AND RASS score less than -1, Starting on Tue12/07/19 at 1430, For 1 dose, PACU (only) lactated ringers New Bag 12/07/2019 3:48 PM SERVER ENGINEER 20 mL/hr 20 mL/hr 20 mL/hr, intravenous, Continuous, Starting on Tue12/07/19 at 1400, PACU & Post-Op Continued from OR 12/07/2019 2:25 PM SERVER ENGINEER 20 mL/hr 20 mL/hr lidocaine-EPINEPHrine 1 %-1:100,000 Given 12/07/2019 1:45 PM SERVER ENGINEER 2 mL Other injection (XYLOCAINE W/EPI) As needed, Starting on Tue12/07/19 at 1320, Intra-Op Given 12/07/2019 1:20 PM SERVER ENGINEER 1.5 mL Other metoprolol tablet 12.5 [...] 2 mg (VERSED) Given 12/07/2019 12:28 PM SERVER ENGINEER 2 mg 2 mg, intravenous, Once as needed, anxiety, sedation, Starting on Tue12/07/19 at 1145, For 1 dose, Pre-Op ondansetron ODT disintegrating tablet 4 mg Given 12/07/2019 12:0 7 PM SERVER ENGINEER 4 mg (ZOFRAN-ODT) 4 mg, sublingual, Once, On Tue12/07/19 at 1200, For 1 dose, Pre-Op, When splitting ODT at bedside, handle with gloves and a pill splitter to prevent moisture contact. oxymetazoline 0.05 % nasal spray Given 12/07/2019 1:42 PM SERVER ENGINEER 1 application (AFRIN) As needed, Starting on Tue12/07/19 at 1342, Intra-Op scopolamine base 1 mg Medication Applied 12/07/2019 12:11 PM 1 patch Behind Right over 3 days 1 patch SERVER ENGINEER Ear (TRANSDERM SCOP) 1 patch, transdermal, [...] Recently Administered Medications Times are shown in SERVER ENGINEER. Scheduled Medication Order 12/05/2019 12/06/2019 12/07/2019 [...] (COMPLETED) 1251 (Given - Provider: Gini Garcia, IMMIGRATION COORDINATOR, SPORTS CARTOONIST) 1,250 mg (rounded from 1,146 mg = [...]
--- OUTSIDE RECORDS SUMMARY | 2022-09-20 14:15 | XMS_ITS | Encounter Summary ---
:1965 Author Organization [facility] Address [address] [place] [address] Care Team Providers Name Role Phone Unavailable Primary Care Provider Unavailable Encounter Details Date Type Department Care Team Description 12/08/2019 Documentation Department of Darlin Olmedo, Otorhinolaryngology in [place], [place] [address] [place] [address] 200 [place] [phone] Social History Tobacco Use Types Packs/Day Years [...] Chronicpain for spine pathology with oxycodone use mcc. Additional doses of oxycodone not sufficient for [...] is currently having. -Dr. Clemente Medley ER TRIMMER documented in this encounter Plan of Treatment Not on filedocumented as of this encounter Visit Diagnoses Not on filedocumented in this encounter Additional Health Concerns Assessment Noted Time PHQ-9 Depression Total Score: 5 04/05/2019 8:00 AM CDT documented as of this encounter
--- OUTSIDE RECORDS SUMMARY | 2022-09-20 14:15 | XMS_ITS | Encounter Summary ---
:1965 Author Organization [facility] Address [address] [place] [address] Care Team Providers Name Role Phone Unavailable Primary Care Provider Unavailable Encounter Details Date Type Department Care Team Description 12/07/2019 Hospital Encounter RST ROMRadha MORAN OR Darlin Olmedo, [address] [facility] [place] [address] [address] [place] [address] [place] [address] Social History Tobacco Use Types [...] you attend uatsdin or Patient refused 2021 sabianist services? Do [...] Comments Blood Pressure 114/72 12/07/2019 3:30 PM BIOMASS PLANT TECHNICIAN Pulse 75 12/07/2019 4:25 PM BIOMASS PLANT TECHNICIAN Temperature 36.5 ??C (97.7 ??F) 12/07/2019 2:32 PM BIOMASS PLANT TECHNICIAN Respiratory Rate 15 12/07/2019 4:25 PM BIOMASS PLANT TECHNICIAN Oxygen Saturation 94% 12/07/2019 4:25 PM BIOMASS PLANT TECHNICIAN Inhaled Oxygen Concentration - - Weight - [...] with a saline sinus rinse kit (suchas NerhodaMed or [place]). - Follow the directions on the bottle [...] our clinic or with another department at [facility], an appointment willbe made for you. If you have not received specific details (date, time, location) within 2 weeks of discharge, please contact our office at [phone] to inquire. If you are to follow up somewhere other than [facility], please schedule this appointment (in the timeframe recommended by your surgeon)at your earliest convenience. CONTACT INFORMATION: If you need to reach the Department of ENT at the [facility] regarding any questions during normal business hours, please call . If you are calling after normal business hours and have a concern that needs to be addressed urgently, please call the [facility] Content Curator at and ask to speak to the ENT resident recreation teacher. ASS PLANT TECHNICIAN AttachmentsThe following attachments cannot be sent through Care Everywhere.Your Scopolamine Patch (Lithuanian)documented in this encounter Medications at Time of [...] Extradural computer navigation was registered according to acid leveler's guidelines and confirmed to be accurate within [...] 5 mL Implants None Darlin Olmedo M.D. ASS PLANT TECHNICIAN Brief Op Note - Jey Santana M.D. [...] Loss None Implants None Jey Santana M.D. 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 Case Notes PLUSH DRESSER 10:37 documented in this encounter Visit Diagnoses Not on filedocumented in this encounter Administered Medications Inactive Administered Medications - up to 3 most recent administrations Medication Order MAR Action Action Date Dose Rate Site acetaminophen injection 1,000 New Bag 12/07/2019 2:38 PM 1,000 mg 400 mL/hr mg (OFIRMEV) BIOMASS PLANT TECHNICIAN 1,000 mg, intravenous, at 400 mL/hr, Administer [...] 1,000 mg (TYLENOL) Given 12/07/2019 12:06 PM BIOMASS PLANT TECHNICIAN 1,000 mg 1,000 mg, oral, Once, On Tue12/07/19 at 1200, For 1 dose, Pre-Op aprepitant capsule 40 mg (EMEND) Given 12/07/2019 12:06 PM BIOMASS PLANT TECHNICIAN 40 mg 40 mg, oral, Once as needed, prevent ponv, Starting on Tue12/07/19 at 1145, For 1 dose, Pre-Op caffeine tablet 200 mg Given 12/07/2019 12:06 PM BIOMASS PLANT TECHNICIAN 200 mg 200 mg, oral, Once as needed, pre-op to prevent caffeine withdrawal headache or to enhance emergence from anesthesia/sedation, Starting on Tue12/07/19 at 1145, For 1 dose, Pre-Op, With sips droperidol injection 0.625 mg (INAPSINE) Given 12/07/2019 2:37 PM BIOMASS PLANT TECHNICIAN 0.625 mg 0.625 mg, intravenous, Every 6 [...] 25 mcg (SUBLIMAZE) Given 12/07/2019 2:32 PM BIOMASS PLANT TECHNICIAN 25 mcg 25 mcg, intravenous, Every 2 min PRN, For pain 4 or greater (maximum 100 mcg). If max dose of Fentanyl is reached and if pain is greater than 4, discontinue Fentanyl: give Hydromorphone, Starting on Tue12/07/19 at 1145, Pre-Op ketamine injection 10 mg (KETALAR) Given 12/07/2019 2:37 PM BIOMASS PLANT TECHNICIAN 10 mg 10 mg, intravenous, Once as needed, Pain sedation mismatch AND RASS score less than -1, Starting on Tue12/07/19 at 1430, For 1 dose, PACU (only) lactated ringers New Bag 12/07/2019 3:48 PM BIOMASS PLANT TECHNICIAN 20 mL/hr 20 mL/hr 20 mL/hr, intravenous, Continuous, Starting on Tue12/07/19 at 1400, PACU & Post-Op Continued from OR 12/07/2019 2:25 PM BIOMASS PLANT TECHNICIAN 20 mL/hr 20 mL/hr metoprolol tablet 12.5 [...] 2 mg (VERSED) Given 12/07/2019 12:28 PM BIOMASS PLANT TECHNICIAN 2 mg 2 mg, intravenous, Once as needed, anxiety, sedation, Starting on Tue12/07/19 at 1145, For 1 dose, Pre-Op ondansetron ODT disintegrating tablet 4 mg Given 12/07/2019 12:0 7 PM BIOMASS PLANT TECHNICIAN 4 mg (ZOFRAN-ODT) 4 mg, sublingual, Once, On Tue12/07/19 at 1200, For 1 dose, Pre-Op, When splitting ODT at bedside, handle with gloves and a pill splitter to prevent moisture contact. scopolamine base 1 mg Medication Applied 12/07/2019 12:11 PM 1 patch Behind Right over 3 days 1 patch BIOMASS PLANT TECHNICIAN Ear (TRANSDERM SCOP) 1 patch, transdermal, Administer [...] Recently Administered Medications Times are shown in BIOMASS PLANT TECHNICIAN. Scheduled Medication Order 12/05/2019 12/06/2019 12/07/2019 acetaminophen [...] (COMPLETED) 1251 (Given - Provider: Gini Garcia, DIGITAL ANALYTICS MANAGER, TOOL DESIGN DRAFTSPERSON) 1,250 mg (rounded from 1,146 mg = [...] solution (CANCELED) 1310 (Given - Provider: Darlin K Isanti, M.D. - Comment: Soaked on cottonoids and [...] 1211 (Medication Applied - Provider: Steph Gallo R.N.)9172 (Due: Medication Removed - Provider: Discharge Provider, [...]
--- OUTSIDE RECORDS SUMMARY | 2022-09-20 14:15 | XMS_ITS | Encounter Summary ---
:1965 Author Organization [facility] Address [address] [place] [address] Care Team Providers Name Role Phone Unavailable Primary Care Provider Unavailable Encounter Details Date Type Department Care Team Description 10/09/2019 Orders Only Department of Otorhinolaryngology Alana Engel, in [facility] L.P.N. 200 [facility] 200 [place] [address] [place], [place] [phone] [address] Social History Tobacco Use Types Packs/Day Years [...] you attend rastafarian or Patient refused 2021 jain services? Do [...]
--- OUTSIDE RECORDS SUMMARY | 2022-09-20 14:15 | XMS_ITS | Encounter Summary ---
:1965 Author Organization [facility] Address [address] [place] [address] Care Team Providers Name Role Phone Unavailable Primary Care Provider Unavailable Encounter Details Date Type Department Care Team Description 10/02/2019 Ancillary Procedure Department of Robert Diehl Arterial Radiology jimmy Celaya M.D. ([facility]) [place], [place] 200 [facility] 200 [place] [phone] Social History Tobacco Use Types Packs/Day Years [...] you attend alevism or Patient refused 2021 denominational services? Do [...] Robert Diehl M.D. - 10/02/2019 3:20 PM BOATSWAINS MATE GLOVE PAIRER: Would you please give the patient a [...] artery finding and the left paraclinoid aneurysm. SWAINS MATE documented in this encounter Plan of Treatment Not on filedocumented as of this encounter Procedures Procedure Name Priority Date/Time Associated Comments Diagnosis INTERPRETATION OF RAD - Routine 10/02/2019 1:01 Thrombosis Result s for OUTSIDE MR NECK (most inpatients PM BOATSWAINS MATE Arterial (HCC) this p rocedure and all are in the outpatients) results section. documented in this encounter Results Interpretation of Outside MR Neck (10/02/2019 1:01 PM BOATSWAINS MATE) Anatomical Region Laterality Modality Neuroradiology RST LOS, Neuroradiology ARZ LOS, N/A Magnetic Resonance Neuroradiology FLA LOS, Neck Specimen (Source) Anatomical Collection Method Collection Time Re ceived Time Location / / Volume Laterality 10/02/2019 1:03 PM BOATSWAINS MATE Impressions 10/02/2019 1:18 PM BOATSWAINS MATE Similar appearance of the distal right vertebral artery irregularity and mild narrowing at C1, r elated to the nonocclusive luminal thrombus, as seen on the prior CTA exams . MRA neck otherwise negative and unchanged. Narrative 10/02/2019 1:18 PM BOATSWAINS MATE EXAM: ??INTERPRETATION OF OUTSIDE MR NECK COMPARISON: [...]
--- OUTSIDE RECORDS SUMMARY | 2022-09-20 14:15 | XMS_ITS | Encounter Summary ---
:1965 Author Organization [facility] Address [address] [place] [address] Care Team Providers Name Role Phone Unavailable Primary Care Provider Unavailable Reason for Visit Reason Onset Date Comments Schedule Surgery 10/05/2019 Encounter Details Date Type Department Care Team Description 10/05/2019 Clinical Department of [place], Schedule Surge ry Communication [place]ology [place], [place] 200 [facility] [address] [place] [phone] Social History Tobacco Use Types Packs/Day Years [...] you attend quaker or Patient refused 2021 hindu services? Do [...] Kaykay Murphy R.N. - 10/17/2019 8:10 AM STRUCTURAL STEEL WORKER APPRENTICE Pt has return appt with EKO on 10/23 CTURAL STEEL WORKER APPRENTICE Telephone Encounter - Alana Engel L.P.N. - 10/09/2019 2:49 PM CST Note sent to DR. Olmedo and patient's Neurology team to discuss clearance for surgery. Desk is scheduling a return for the patient ot discuss surgery. CTURAL STEEL WORKER APPRENTICE Telephone Encounter - Alana Engel L.P.N. - [...] following references were used: provider Dr. Olmedo CTURAL STEEL WORKER APPRENTICE Telephone Encounter - Zoey Lipscomb - 10/05/2019 [...] surgical date. She can be reached at [phone]. CTURAL STEEL WORKER APPRENTICE documented in this encounter Plan of Treatment Not on filedocumented as of this encounter Visit Diagnoses Not on filedocumented in this encounter Additional Health Concerns Assessment Noted Time PHQ-9 Depression Total Score: 5 04/05/2019 8:00 AM CDT documented as of this encounter
--- OUTSIDE RECORDS SUMMARY | 2022-09-20 14:15 | XMS_ITS | Encounter Summary ---
:1965 Author Organization [facility] Address [address] [place] [address] Care Team Providers Name Role Phone Unavailable Primary Care Provider Unavailable Encounter Details Date Type Department Care Team Description 12/06/2019 Clinical Communication Department of Robert Diehl, Neurology in .. [place], [place] 200 [facility] 200 [place] [address] [phone] Social History Tobacco Use Types Packs/Day Years [...] you attend jewish or Patient refused 2021 baptist services? Do [...] during her next visit. Janis Preston R.N. FISHERMAN Telephone Encounter - Janis Preston R.N. - 12/06/2019 1:35 PM CST ----- Message from Robert Diehl M.D. sent at 12/03/2019 10:17 AM WEIR FISHERMAN ----- Regarding: FW: Overnight oximetry Good morning Would you be able to reach out and let this patient know the oximetry was unsuccessful and would need to be repeated and ask if they would like to do this? Thank you! Electronically signed by: Robert Diehl M.D. 12/03/19 10:18 AM WEIR FISHERMAN ----- Message ----- From: Carolynn Stokes Sent: 11/29/2019 2:39 PM WEIR FISHERMAN To: Robert Diehl M.D. Subject: Overnight oximetry Your patients overnight oximetry test did not have recorded data of sufficient duration for an interpretation to be completed and was returned four months after appointment. Therefore an overnight oximetry report will not be generated to [facility]. Please contact your clinical assistant floor covering printer to reschedule an overnight oximetry test if you wish the patient to repeat an overnight oximetry test. FISHERMAN documented in this encounter Plan of Treatment [...] Organization Address City/State/ZIP Code Phon e Number [facility] documented in this encounter Visit Diagnoses Diagnosis Fatigue - Primary Fatigue documented in this encounter Additional Health Concerns Assessment Noted Time PHQ-9 Depression Total Score: 5 04/05/2019 8:00 AM CDT documented as of this encounter
--- OUTSIDE RECORDS SUMMARY | 2022-09-20 14:15 | XMS_ITS | Encounter Summary ---
:1965 Author Organization [facility] Address [address] [place] [address] Care Team Providers Name Role Phone Unavailable Primary Care Provider Unavailable Encounter Details Date Type Department Care Team Description 11/29/2019 Hospital Encounter Department of Jey Santana, Rhinosi nusitis Chronic; Laboratory Medicine M.D. Preanesthetic Medical Exam and Pathology, [address] [place] [address] in [place] [phone] [place] [phone] [place] [address] (Work) [place], [place] [phone] [address] (Fax) [phone] Social History Tobacco Use Types Packs/Day Years [...] you attend faith or Patient refused 2021 caodaism services? Do [...] R esults for this DIFFERENTIAL, B AM COMPUTER EQUIPMENT INSTALLER procedure ar e in the results section. CREATININE WITH Routine 11/29/2019 11:30 Preanesthetic Medical Results for this EGFR, S/P AM COMPUTER EQUIPMENT INSTALLER Exam procedure are i n the results section. documented in this encounter Results Creatinine with Estimated GFR - for Lab Draw (11/29/2019 11:30 AM COMPUTER EQUIPMENT INSTALLER) P athologist Signature Creatinine 0.98 0.59 - 11/29/2019 DTL 1.04 mg/dL 1:05 PM COMPUTER EQUIPMENT INSTALLER eGFR-Non 65 >=60 11/29/2019 DTL Black/ mL/min/BSA 1:05 PM COMPUTER EQUIPMENT INSTALLER Danish Comment: ----ADDITIONAL INFORMATION---- Estimated GFR calculated using the 2009 CKD_EPI creatinine equation. eGFR-Black/ 75 >=60 mL/min/BSA 2019 1:05 PM COMPUTER EQUIPMENT INSTALLER DTL Comment: ----ADDITIONAL INFORMATION---- Estimated GFR calculated using the 2009 CKD_EPI creatinine equation. Specimen Anatomical Collection Method Collection Time Receive d Time (Source) Location / / Volume Laterality Blood (Blood, 11/29/2019 11:30 11/29/2019 Venous) AM COMPUTER EQUIPMENT INSTALLER 11:50 AM COMPUTER EQUIPMENT INSTALLER Miranda Collado APRN C.N.P., M.S.N. LAB BLOOD ADD-ON Performing Organization Address City/State/ZIP Code Phon e Number [facility] - [address] [place] [phone] [facility] [place] [address] [facility] 200 [facility] (ABNORMAL) CBC without Differential (11/29/2019 11:30 AM COMPUTER EQUIPMENT INSTALLER) Patholo gist Method Time Signature Hemoglobin 13.3 11.6 - 11/29/2019 DTL 15.0 g/dL 12:09 PM COMPUTER EQUIPMENT INSTALLER Hematocrit 40.6 35.5 - 11/29/2019 DTL 44.9 % 12:09 PM COMPUTER EQUIPMENT INSTALLER Erythrocytes 4.08 3.92 - 11/29/2019 DTL 5.13 12:09 PM COMPUTER EQUIPMENT INSTALLER x10(12)/L MCV 99.5 (H) 78.2 - 11/29/2019 DTL 97.9 fL 12:09 PM COMPUTER EQUIPMENT INSTALLER RBC Distrib Width 13.3 12.2 - 11/29/2019 DTL 16.1 % 12:09 PM COMPUTER EQUIPMENT INSTALLER Platelet Count 234 157 - 371 11/29/2019 DTL x10(9)/L 12:09 PM COMPUTER EQUIPMENT INSTALLER Leukocytes 5.8 3.4 - 9.6 11/29/2019 DTL x10(9)/L 12:09 PM COMPUTER EQUIPMENT INSTALLER Specimen Anatomical Collection Method Collection Time Receive d Time (Source) Location / / Volume Laterality Blood (Blood, 11/29/2019 11:30 11/29/2019 Venous) AM COMPUTER EQUIPMENT INSTALLER 11:50 AM COMPUTER EQUIPMENT INSTALLER Jey Santana M.D. LAB BLOOD ADD-ON Performing Organization Address City/State/ZIP Code Phon e Number [facility] - [address] [place], [place] [address] [facility] [place] [address] [facility] 200 [facility] documented in this encounter Visit Diagnoses Diagnosis Rhinosinusitis Chronic Preanesthetic Medical Exam documented in this encounter Additional Health Concerns Assessment Noted Time PHQ-9 Depression Total Score: 5 04/05/2019 8:00 AM CDT documented as of this encounter
--- OUTSIDE RECORDS SUMMARY | 2022-09-20 14:15 | XMS_ITS | Encounter Summary ---
:1965 Author Organization [facility] Address [address] [place] [address] Care Team Providers Name Role Phone Unavailable Primary Care Provider Unavailable Reason for Referral Outpatient (Routine) - Closed Specialty Diagnoses / Procedures Referred By Contact Refer red To Contact General Surgery Diagnoses Rhinosinusitis Chronic John Gomez M.D. [address] [phone] Referral ID Status Reason Start Date Expiration Date Visits Requ ested Visits Authorized [id number] Closed 11/08/2019 11/07/2020 1 1 utpatient (Routine) - Closed Specialty Diagnoses / Procedures Referred By Contact Refer red To Contact Otorhinolaryngology John Gomez M.D. [address] [phone] Referral ID Status Reason Start Date Expiration Date Visits Requ ested Visits Authorized [id number] Closed 11/08/2019 11/07/2020 1 1 Scheduling Instructions EKO listing visit and NESHA 11/29/2019 CTOR OPERATIONS BROADCAST Reason for Visit Reason Onset Date Comments reschedule surgery 11/07/2019 Patient was a no sydni w for surgery with Dr. Olmedo on 11/05/19. Encounter Details Date Type Department Care Team Description 11/07/2019 Clinical Department of shawna Olmedo Communication Otorhinolaryngology in Darlin Brumfield surg silva (Patient [place] Carole.Juice. was a no show for [address] [place]. G[place], [place] [phone] SHAHA[place] on [phone] [place], 11/05/19.) [place] [phone] Social History Tobacco Use Types Packs/Day Years [...] you attend orthodoxy or Patient refused 2021 restorationist services? Do [...] Tanvi White R.N. - 11/09/2019 10:02 AM DIRECTOR OPERATIONS BROADCAST Patient called to let her know of the preoperative appointments and listing appointment with Dr. Darlin Olmedo. She was also informed that she does not have to stop the aspirin 81 mg for surgery. She verbalized understanding regarding the use of aspirin and was appreciative of the call. CTOR OPERATIONS BROADCAST Telephone Encounter - John Gomez M.D. - 11/08/2019 5:00 PM CST Kosta Wu, I placed the NESHA, listing visit, and created the listing. She can stay on her 81 ASA. Thank you. CTOR OPERATIONS BROADCAST Addendum Note - John Gomez M.D. - 11/08/2019 4:59 PM DIRECTOR OPERATIONS BROADCAST Addended by: JOHN GOMEZ on: 11/08/2019 04:59 PM Modules accepted: Orders CTOR OPERATIONS BROADCAST Telephone Encounter - Tanvi White R.N. - 11/08/2019 10:59 AM DIRECTOR OPERATIONS BROADCAST SUBJECTIVE CHIEF COMPLAINT / REASON FOR CALL [...] the surgical date. She will require a river driver and that plan will work better for her. Disposition/Recommendation: Patient is aware that she will need to call in the night before surgeryfor a report time to [facility]. Information/Education: patient/caller able to teach back Caller agreeable to plan of care: yes The following references were used: nursing clinical judgement CTOR OPERATIONS BROADCAST Telephone Encounter - Darlin Olmedo M.D. - 11/08/2019 10:16 AM CST Any of those days are fine. I should see her for a listing visit and NESHA. thanks CTOR OPERATIONS BROADCAST Telephone Encounter - Tanvi White R.N. - 11/07/2019 1:34 PM DIRECTOR OPERATIONS BROADCAST SUBJECTIVE CHIEF COMPLAINT / REASON FOR CALL [...] following references were used: nursing clinical judgement CTOR OPERATIONS BROADCAST documented in this encounter Plan of Treatment Scheduled Referrals Name Type Priority Associated Diagnoses Order S chedule Otorhinolaryngology office Outpatient Routine E xpected: visit (clinic) Referral 11/29/2019, Expires: 11/08/2022 Preoperative Evaluation Outpatient Routine Rhinosinusitis Ex pected: NESHA consult (clinic) Referral Chronic 020 (Approximate), Expires: 11/08/2022 documented as of this encounter Results (ABNORMAL) CBC without Differential (11/29/2019 11:30 AM DIRECTOR OPERATIONS BROADCAST) [facility] gist Method Time Signature Hemoglobin 13.3 11.6 - 11/29/2019 DTL 15.0 g/dL 12:09 PM DIRECTOR OPERATIONS BROADCAST Hematocrit 40.6 35.5 - 11/29/2019 DTL 44.9 % 12:09 PM DIRECTOR OPERATIONS BROADCAST Erythrocytes 4.08 3.92 - 11/29/2019 DTL 5.13 12:09 PM DIRECTOR OPERATIONS BROADCAST x10(12)/L MCV 99.5 (H) 78.2 - 11/29/2019 DTL 97.9 fL 12:09 PM DIRECTOR OPERATIONS BROADCAST RBC Distrib Width 13.3 12.2 - 11/29/2019 DTL 16.1 % 12:09 PM DIRECTOR OPERATIONS BROADCAST Platelet Count 234 157 - 371 11/29/2019 DTL x10(9)/L 12:09 PM DIRECTOR OPERATIONS BROADCAST Leukocytes 5.8 3.4 - 9.6 11/29/2019 DTL x10(9)/L 12:09 PM DIRECTOR OPERATIONS BROADCAST Specimen Anatomical Collection Method Collection Time Receive d Time (Source) Location / / Volume Laterality Blood (Blood, 11/29/2019 11:30 11/29/2019 Venous) AM DIRECTOR OPERATIONS BROADCAST 11:50 AM DIRECTOR OPERATIONS BROADCAST John Gomez M.D. LAB BLOOD ADD-ON Performing Organization Address City/State/ZIP Code Phon e Number [facility] - [address] [place], [place] [address] [facility] [place] [address] Laboratories-[facility] [address] documented in this encounter Visit Diagnoses Diagnosis Rhinosinusitis Chronic - Primary documented in this encounter Additional Health Concerns Assessment Noted Time PHQ-9 Depression Total Score: 5 04/05/2019 8:00 AM CDT documented as of this encounter
--- OUTSIDE RECORDS SUMMARY | 2022-09-20 14:15 | XMS_ITS | Encounter Summary ---
:1965 Author Organization [facility] Address [address] [place] [address] Care Team Providers Name Role Phone Unavailable Primary Care Provider Unavailable Reason for Visit Reason Onset Date Comments MRI from [facility] 10/02/2019 Dr. Diehl Encounter Details Date Type Department Care Team Description 10/02/2019 Clinical Communication Department of Robert Diehl MR I from [facility] in , M.D. [facility] (Dr. Bullock, 200 [facility]) [place], [place] [address] [place] [phone] [place], [place] [phone] (Work) [phone] Social History Tobacco Use Types Packs/Day Years [...] you attend hindu or Patient refused 2021 protestant services? Do [...] with the radiology film room (Marlen) at [facility]. They have pushed the MRI and it should be here soon. GREASER documented in this encounter Plan of Treatment Not on filedocumented as of this encounter Visit Diagnoses Not on filedocumented in this encounter Additional Health Concerns Assessment Noted Time PHQ-9 Depression Total Score: 5 04/05/2019 8:00 AM CDT documented as of this encounter
--- OUTSIDE RECORDS SUMMARY | 2022-09-20 14:15 | XMS_ITS | Encounter Summary ---
:1965 Author Organization [facility] Address [address] [place] [address] Care Team Providers Name Role Phone Unavailable [...] you attend temple or Patient refused 2021 restoration services? Do [...] 12/07/2019 12:15 Results for this EXAM PM UNION CARPENTER procedure are i n the results section. documented in this encounter Results NOSE-Otorhinolaryngology Image Exam (12/07/2019 12:15 PM UNION CARPENTER) Specimen (Source) Anatomical Collection Method Collection Time Re ceived Time Location / / Volume Laterality 12/07/2019 12:15 PM UNION CARPENTER Narrative IIMS - 12/07/2019 2:07 PM UNION CARPENTER This order has been created and auto-finalized [...]
--- OUTSIDE RECORDS SUMMARY | 2022-09-20 14:15 | XMS_ITS | Encounter Summary ---
:1965 Author Organization [facility] Address [address] [place] [address] Care Team Providers Name Role Phone Unavailable Primary Care Provider Unavailable Encounter Details Date Type Department Care Team Description 10/03/2019 Clinical Communication Department of Robert Diehl, Neurology in .[place], [place] 200 [facility] 200 [place] [phone] [phone] Social History Tobacco Use Types Packs/Day Years [...] you attend hindu or Patient refused 2021 uatsdin services? Do [...] Coby this is for you, records request DEVELOPER WITH SECURITY CLEARANCE Telephone Encounter - Janis Preston R.N. - 10/03/2019 3:11 PM CST Called patient back with update about aspirin per Dr. Diehl. Patient voiced understanding that she will stop the warfarin and continue baby aspirin. She wants notes about her visit sent to her DrBrittonin Stanton. Janis Preston R.N. DEVELOPER WITH SECURITY CLEARANCE Telephone Encounter - Janis Preston R.N. - [...] dose and warfarin discontinuation. Janis Preston R.N. DEVELOPER WITH SECURITY CLEARANCE documented in this encounter Plan of Treatment Not on filedocumented as of this encounter Visit Diagnoses Not on filedocumented in this encounter Additional Health Concerns Assessment Noted Time PHQ-9 Depression Total Score: 5 04/05/2019 8:00 AM CDT documented as of this encounter
--- OUTSIDE RECORDS SUMMARY | 2022-09-20 14:15 | XMS_ITS | Encounter Summary ---
:1965 Author Organization [facility] Address [address] [place] [address] Care Team Providers Name Role Phone Unavailable Primary Care Provider Unavailable Encounter Details Date Type Department Care Team Description 12/07/2019 Anesthesia Event RST ROMB MAIN OR Leonides Walker, [address] [facility] [place] [address] [address] [place] [address] [place] [phone] (Wo rk) Anesthesia Record Procedure Summary Procedure [...] h andoff to the receiving staff during [facility] we 1. Identified the patient 2. [...] Simin valentine, Jey García, (created via procedure TANK OPERATOR, SAND MILL OPERATOR CORE SAND TANK OPERATOR, CRN A documentation); Mask Ventilation: Easy mask; [...] you attend orthodox or Patient refused 2021 jewish services? Do you belong to any clubs or No 05/17/2022 organizations such as orthodox groups, unions, fraOurcast or athletic groups, or school groups? How [...] Procedure Summary Date: 12/07/19 Room / Location: [address] 01 [facility] in [place], [place] Anesthesia Start: 1234 Anesthesia Stop: 1434 [...] Promethazine; otherwise, uneventful recovery with outpt dispo. INSTALLER Anesthesia Procedure Notes - Gini Garcia APRN, [...] Procedure outcome: successful Airway event: no complications INSTALLER Anesthesia Preprocedure Evaluation - Leonides Walker M.D. - 12/07/2019 11:59 AM CST Preprocedure Anesthesia & H&P Assessment Procedure Summary Date/Time: 12/07/19 1119 Procedures: SINUSOTOMY ENDOSCOPY FRONTAL. (Bilateral Nose) EXTRADURAL COMPUTER NAVIGATION. 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 Location: [address] [facility] in [place], [place] Provider: Darlin Olmedo M.D. Pertinent components [...] #11 Patent Foramen Ovale (HCC) Noted on [id number]/ ECHO otherwise normal. I will not pursue [...] with patient /legal guardian or through an tube laser operator. The use of blood products not discussed Approval to Proceed: approved for anesthesia INSTALLER documented in this encounter Plan of Treatment Not on filedocumented as of this encounter Procedures Procedure Name Priority Date/Time Associated Comments Diagnosis LDA ANE ENDOTRACHEAL Routine 12/07/2019 12:47 Res ults for this AIRWAY PM SIGN INSTALLER procedure are i n the results section. documented in this encounter Results LDA ANE ENDOTRACHEAL AIRWAY (12/07/2019 12:47 PM SIGN INSTALLER) Narrative Gini Garcia APRN, CRNA - 2019 12:47 PM SIGN INSTALLER Gini Garcia APRN, CRNA ? 12/07/2019 12:49 [...] dexamethasone injection (DECADRON) Given 12/07/2019 12:43 PM SIGN INSTALLER 4 mg As needed, Starting on Tue12/07/19 at 1243, Anesthesia Intra-op ePHEDrine (PF) injection Given 12/07/2019 12:48 PM SIGN INSTALLER 5 mg intravenous, As needed, Starting on Tue12/07/19 at 1242, Anesthesia Intra-op Given 12/07/2019 12:42 PM SIGN INSTALLER 25 mg fentaNYL injection 25 mcg (SUBLIMAZE) Given 12/07/2019 2:32 PM SIGN INSTALLER 25 mcg 25 mcg, intravenous, Every 2 min PRN, For pain 4 or greater (maximum 100 mcg). If max dose of Fentanyl is reached and if pain is greater than 4, discontinue Fentanyl: give Hydromorphone, Starting on Tue12/07/19 at 1145, Pre-Op lactated ringers New Bag 12/07/2019 12:39 PM SIGN INSTALLER intravenous, Continuous Infusion: Per Instructions PRN, Starting on Tue12/07/19 at 1239, Anesthesia Intra-op lidocaine (PF) (cardiac) injection Given 12/07/2019 12:40 PM SIGN INSTALLER 100 mg intravenous, As needed, Starting on Tue12/07/19 at 1240, Anesthesia Intra-op ondansetron (PF) injection (ZOFRAN) Given 12/07/2019 1:57 PM SIGN INSTALLER 4 mg intravenous, As needed, Starting on Tue12/07/19 at 1357, Anesthesia Intra-op phenylephrine injection Given 12/07/2019 12:50 PM SIGN INSTALLER 100 mcg intravenous, As needed, Starting on Tue12/07/19 at 1246, Anesthesia Intra-op Given 12/07/2019 12:48 PM SIGN INSTALLER 100 mcg Given 12/07/2019 12:46 PM SIGN INSTALLER 100 mcg propofol 10 mg/mL infusion Rate/Dose 12/07/2019 75 mcg/kg/min 34.4 m L/hr (DIPRIVAN) Change 12:46 PM SIGN INSTALLER intravenous, Continuous Infusion: Per Instructions PRN, Starting on Tue12/07/19 at 1241, Anesthesia Intra-op New Bag 12/07/2019 12:41 PM SIGN INSTALLER 250 mcg/kg/min 115 mL/hr propofol injection (DIPRIVAN) Given 12/07/2019 12:42 PM SIGN INSTALLER 100 mg intravenous, As needed, Starting on Tue12/07/19 at 1242, Anesthesia Intra-op remifentanil 20 mcg/mL in Rate/Dose 12/07/2019 1:43 0.1 mcg/kg/min 2 2.9 mL/hr NaCl 0.9% 100 mL infusion Change PM SIGN INSTALLER (ULTIVA) Continuous Infusion: Per Instructions PRN, Starting on Tue12/07/19 at 1246, Anesthesia Intra-op Rate/Dose Change 12/07/2019 12:53 PM SIGN INSTALLER 0.2 mcg/kg/min 45.8 mL/hr New Bag 12/07/2019 12:46 PM SIGN INSTALLER 0.25 mcg/kg/min 57.3 mL/hr succinylcholine (PF) injection (ANECTINE ) Given 12/07/2019 12:42 PM SIGN INSTALLER 10 mg intravenous, As needed, Starting on Tue12/07/19 at 1242, Anesthesia Intra-op vancomycin in NaCl 0.9% IVPB 1,250 mg Given 12/07/2019 12:51 PM SIGN INSTALLER 1.25 g 1,250 mg (rounded from 1,146 [...]
--- OUTSIDE RECORDS SUMMARY | 2022-09-20 14:15 | XMS_ITS | Encounter Summary ---
:1965 Author Organization [facility] Address [address] [place] [address] Care Team Providers Name Role Phone Unavailable Primary Care Provider Unavailable Encounter Details Date Type Department Care Team Description 10/02/2019 Orders Only Department of Robert Diehl Thrombosi s Arterial Neurology in [place] ([facility]) (Primary Dx) [place], [place] 200 [facility] 200 [place] [phone] Social History Tobacco Use Types Packs/Day Years [...] you attend hinduism or Patient refused 2021 gnosticist services? Do [...] of Outside MR Neck (10/02/2019 1:01 PM WAREHOUSE AND RECEIVING SUPERVISOR) Anatomical Region Laterality Modality Neuroradiology RST LOS, Neuroradiology ARZ LOS, N/A Magnetic Resonance Neuroradiology FLA LOS, Neck Specimen (Source) Anatomical Collection Method Collection Time Re ceived Time Location / / Volume Laterality 10/02/2019 1:03 PM WAREHOUSE AND RECEIVING SUPERVISOR Impressions 10/02/2019 1:18 PM WAREHOUSE AND RECEIVING SUPERVISOR Similar appearance of the distal right vertebral artery irregularity and mild narrowing at C1, r elated to the nonocclusive luminal thrombus, as seen on the prior CTA exams . MRA neck otherwise negative and unchanged. Narrative 10/02/2019 1:18 PM WAREHOUSE AND RECEIVING SUPERVISOR EXAM: ??INTERPRETATION OF OUTSIDE MR NECK COMPARISON: [...]
--- OUTSIDE RECORDS SUMMARY | 2022-09-20 14:15 | XMS_ITS | Encounter Summary ---
:1965 Author Organization [facility] Address [address] [place] [address] Care Team Providers Name Role Phone Unavailable Primary Care Provider Unavailable Reason for Visit Reason Onset Date Comments Nicotine Dependence 09/04/2019 Encounter Details Date Type Department Care Team Description 09/04/2019 Clinical Department of Gagan Christensen Communication Nicotine Kenna D, Dependence, Jordy Alex, C.T.T.S. [facility], in [place], [place] [address] [place] [address] Social History Tobacco Use Types Packs/Day Years [...] you attend sikhism or Patient refused 2021 anabaptism services? Do [...]
--- OUTSIDE RECORDS SUMMARY | 2022-09-20 14:15 | XMS_ITS | Encounter Summary ---
:1965 Author Organization [facility] [place] [facility] Address [address] [place] [address] Care Team Providers Name Role Phone Unavailable Primary Care Provider Unavailable Reason for Visit Outpatient (Routine) - Closed Specialty Diagnoses / Procedures Referred By Contact Refer red To Contact Neurology Robert Diehl M. D. [facility] [address] [place] [phone] Referral ID Status Reason Start Date Expiration Date Visits Requ ested Visits Authorized [id number] Closed 06/28/2019 06/27/2020 1 1 Encounter Details Date Type Department Care Team Description 10/02/2019 Office Visit Department of Robert Diehl, Stroke (H CC) (Primary Dx); Neurology in [place] Thrombosis Arterial (HCC) [place], [place] [address] [place] [address] [place] [phone] Social History Tobacco Use Types Packs/Day Years [...] you attend jain or Patient refused 2021 advent services? Do you belong to any clubs or No 05/17/2022 organizations such as jain groups, unions, fraCoherent Path or athletic groups, or school groups? How [...] of a magnetic resonance angiogram completed at [facility]. Unfortunately we do not have the [...] 1. Stroke (HCC) 2. Thrombosis Arterial (HCC) OR CONSUMER INSIGHTS CONSULTANT documented in this encounter Plan of Treatment Not on filedocumented as of this encounter Visit Diagnoses Diagnosis Stroke (HCC) - Primary Thrombosis Arterial (HCC) documented in this encounter Additional Health Concerns Assessment Noted Time PHQ-9 Depression Total Score: 5 04/05/2019 8:00 AM CDT documented as of this encounter
--- OUTSIDE RECORDS SUMMARY | 2022-09-20 14:15 | XMS_ITS | Encounter Summary ---
:1965 Author Organization [facility] Address [address] [place] [address] Care Team Providers Name Role Phone Unavailable Primary Care Provider Unavailable Reason for Referral Outpatient (Routine) - Closed Specialty Diagnoses / Procedures Referred By Contact Refer red To Contact Otorhinolaryngology Darlin Olmedo M.D . 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 [address] [phone] Referral ID Status Reason Start Date Expiration Date Visits Requ ested Visits Authorized [id number] Closed 11/29/2019 11/28/2020 1 1 Encounter Details Date Type Department Care Team Description 12/18/2019 Office Visit Department of Darlin Olmedo Mucocele Nasa l Sinus Otorhinolaryngology jimmy Brumfield M.D. (Primary Dx) [place] [address] [facility] 200 [place] [phone] Social History Tobacco Use Types Packs/Day Years [...] you attend adventist or Patient refused 2021 jehovah's witness services? [...] we will refer to neurology headache clinic. 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
--- OUTSIDE RECORDS SUMMARY | 2022-09-20 14:15 | XMS_ITS | Encounter Summary ---
:1965 Author Organization [facility] Address [address] [place] [address] Care Team Providers Name Role Phone Unavailable Primary Care Provider Unavailable Reason for Visit Outpatient (Routine) - Closed Specialty Diagnoses / Procedures Referred By Contact Refer red To Contact Otorhinolaryngology Jey Santana M.D. [facility] [address] [place] [phone] Referral ID Status Reason Start Date Expiration Date Visits Requ ested Visits Authorized [id number] Closed 11/08/2019 11/07/2020 1 1 Encounter Details Date Type Department Care Team Description 11/29/2019 Office Visit Department of Darlin Olmedo Mucocele Nasa l Sinus Otorhinolaryngology jimmy Brumfield M.D. (Primary Dx) [place], [place] [address] [place] [address] [place] [phone] Social History Tobacco Use Types [...] you attend shinto or Patient refused 2021 restorationism services? Do [...] Previous sinus surgery: sinus surgery X2 in [place] and X2 at [place] per patient; mucocele notedby left eye on [...] Crusting Mild = 1 Mild = 1 [facility] Endoscopy Score = 2 ASSESSMENT / PLAN [...] if this occurs we will identify another clinical science consultant surgeon to supervise other team members to safely and seamlessly complete the procedure. Signed consent was obtained today. Patient was seen and examined today in conjunction with Dr. Darlin Olmedo ([phone]). RITY ASSESSOR Associated attestation - Darlin Olmedo M.D. - 11/30/2019 10:43 AM SECURITY ASSESSOR I was the supervising physician in the delivery of the service. I saw the patient with Krista Casey APRN, MACHINE STRIPPER, MSN and agree with her history, Assessment [...]
--- OUTSIDE RECORDS SUMMARY | 2022-09-20 14:15 | XMS_ITS | Encounter Summary ---
:1965 Author Organization [facility] Address [address] [place] [address] Care Team Providers Name Role Phone Unavailable Primary Care Provider Unavailable Reason for Visit Reason Onset Date Comments Patient wants letter and notes sent to physician in 10/03/[address] Robert Diehl [facility] Encounter Details Date Type Department Care Team Description 10/03/2019 Clinical Communication Department of Robert Diehl Neurology in [place], [place] letter and notes [address] sent to physician [place], [place] in [facility] ( [address] [place] [phone] Robert Diehl) [place], [place] [phone] (Work) [phone] Social History Tobacco Use Types Packs/Day Years [...] you attend baptist or Patient refused 2021 druze services? Do [...] 3:55 PM CST As per documentation in [facility] on 09/04, a letter has been sent to Dr. Blackwell with the patient's notes from her most recent visit. 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
--- OUTSIDE RECORDS SUMMARY | 2022-09-20 14:16 | XMS_ITS | Encounter Summary ---
:1965 Author Organization [facility] Address [address] [place] [phone] Care Team Providers Name Role Phone Unavailable Primary Care Provider Unavailable Reason for Referral Outpatient (Routine) - Closed Specialty Diagnoses / Procedures Referred By Contact Refer red To Contact Neurology Robert Diehl M. D. [facility] [address] [place] [phone] Referral ID Status Reason Start Date Expiration Date Visits Requ ested Visits Authorized [id number] Closed 06/28/2019 06/27/2020 1 1 Reason for Visit Outpatient (Routine) - Closed Specialty Diagnoses / Procedures Referred By Contact Refer red To Contact Neurology Diagnoses Stroke (HCC) Thrombosis Arterial (HCC) Aneurysm Cerebral Unruptured (HCC) Fernie Soriano M.D. [facility] [address] [place] [address] [phone] Referral ID Status Reason Start Date Expiration Date Visits Requ ested Visits Authorized [id number] Closed 03/31/2019 03/30/2020 1 1 Encounter Details Date Type Department Care Team Description 06/28/2019 Office Visit Department of Robert Diehl Fatigue ( Primary Dx); Neurology in [place] Stroke (HCC); [place], [place] 200 [facility] Thrombosis Arterial (HCC); 200 [place], [place] Aneurysm Cerebral Unruptured (HCC) [place] [address] [phone] Social History Tobacco Use Types Packs/Day Years [...] you attend pentecostal or Patient refused 2021 confucianist services? Do [...] Fatigue PUL Home Overnight Oximetry 2. Stroke ([facility]) Neurology - Cerebrovascular consult (clinic) MR Neck Angiogram without and with IV Contrast PM Device interrogation (clinic) 3. Thrombosis Arterial ([facility]) Neurology - Cerebrovascular consult (clinic) MR Neck Angiogram without and with IV Contrast PM Device interrogation (clinic) 4. Aneurysm Cerebral Unruptured ([facility]) Neurology - Cerebrovascular consult (clinic) documented in this encounter Plan of Treatment Scheduled Orders Name Type Priority [facility]oses [facility] PFT Routine Fatigue Expected: 06/28/2019 Oximetry (Approximate), Expires: 06/28/2022 Scheduled Referrals Name Type Priority Associated Diagnoses Order S [facility] Neurology office Outpatient Referral Routine [...]
--- OUTSIDE RECORDS SUMMARY | 2022-09-20 14:16 | XMS_ITS | Encounter Summary ---
:1965 Author Organization [facility] Address [address] [place] [address] Care Team Providers Name Role Phone Unavailable Primary Care Provider Unavailable Reason for Visit Reason Onset Date Comments Telephone call 04/24/2019 [place] Encounter Details Date Type Department Care Team Description 04/24/2019 Clinical Communication Department of Blanca, Tele phone call Neurology in Nan Bose M.D. (Blanca) [place], [facility] [place], [place] [address] [place] [phone] [place], [place] [phone] (Work) [phone] Social History Tobacco Use Types Packs/Day Years [...] you attend mandaen or Patient refused 2021 scientologist services? Do [...] The patient contacted Dr. Henry's office at [facility] for a PFO closure. Depending on your answer would decide if the patient was a candidate for PFO closure. They read your 04/04/18 hospital summary in [facility], but the answer is unclear. Their fax is [phone]. thanks documented in this encounter Plan of Treatment Not on filedocumented as of this encounter Visit Diagnoses Not on filedocumented in this encounter Additional Health Concerns Assessment Noted Time PHQ-9 Depression Total Score: 5 04/05/2019 8:00 AM CDT documented as of this encounter
--- OUTSIDE RECORDS SUMMARY | 2022-09-20 14:16 | XMS_ITS | Encounter Summary ---
:1965 Author Organization [facility] Address [address] [place] [address] Care Team Providers Name Role Phone Unavailable Primary Care Provider Unavailable Encounter Details Date Type Department Care Team Description 09/03/2019 Documentation Department of Neurology in Robert Fontanez M.D. [place], [place] 200 [facility] 200 [place] [phone] (Wo rk) Social History Tobacco Use Types [...] you attend presybeterian or Patient refused 2021 oriental orthodox services? [...]
--- OUTSIDE RECORDS SUMMARY | 2022-09-20 14:16 | XMS_ITS | Encounter Summary ---
:1965 Author Organization [facility] Address [address] [place] [address] Care Team Providers Name Role Phone Unavailable Primary Care Provider Unavailable Reason for Visit Reason Onset Date Comments wants to have MRI done closer to home before appt 09/03/2019 [facility] Encounter Details Date Type Department Care Team Description 09/03/2019 Clinical Communication Department of Robert Diehl nts to have MRI Neurology in [place] done [place] to home Sarah Ann, [address] [facility] [place], [place] ([facility]) [address] [facility] [phone] [place], [place] [phone] (Work) [phone] Social History Tobacco Use Types Packs/Day Years [...] for MRA faxed to Dr. Blackwell at [facility] at fax [phone]. Called the patient and left a message [...] like to have her MRI done at [facility] before her appointment with Dr. Diehl on 09/19. Or if she could get her MRI scheduled for the same day as she is here for her appointment. She doesn't want to drive 2 days in a row. She wanted the order sent to Dr. Blackwell so I guess just send notes to Dr. Clemente Blackwell at [facility] Phone- [phone] documented in this encounter Plan of Treatment Not on filedocumented as of this encounter Visit Diagnoses Not on filedocumented in this encounter Additional Health Concerns Assessment Noted Time PHQ-9 Depression Total Score: 5 04/05/2019 8:00 AM CDT documented as of this encounter
--- OUTSIDE RECORDS SUMMARY | 2022-09-20 14:16 | XMS_ITS | Encounter Summary ---
:1965 Author Organization [facility] Address [address] [place] [address] Care Team Providers Name Role Phone Unavailable Primary Care Provider Unavailable Reason for Visit Reason Onset Date Comments Nicotine Dependence 08/30/2019 Encounter Details Date Type Department Care Team Description 08/30/2019 Clinical Department of Gagan Christensen Communication Nicotine Kenna D, Dependence, Jordy Alex, [facility], in [place], [place] [address] [place] [address] Social History Tobacco Use Types Packs/Day Years [...] you attend protestant or Patient refused 2021 jehovah's witness services? [...]
--- OUTSIDE RECORDS SUMMARY | 2022-09-20 14:16 | XMS_ITS | Encounter Summary ---
:1965 Author Organization [facility] Address [address] [place] [id number] Care Team Providers Name Role Phone Unavailable Primary Care Provider Unavailable Encounter Details Date Type Department Care Team Description 04/04/2019 - Hospital Encounter [facility] Blanca, Stroke (H CC) (Primary Dx); [facility]ine [facility]; [facility], [address] [place] [address] Second floor [id number] [place] [address] [place], [place] (Work) [phone] Social History Tobacco Use [...] you attend druze or Patient refused 2021 church services? Do [...] with your primary care provider in [place], [place] for ongoing monitoring of this. - Follow-up in [facility] (Dr. Diehl) in approximately 3 months??? [...] use disorder who initially was admitted to [facility] from 03/29/2019 to 03/31/2019 after presenting [...] use disorder who initially was admitted to [facility] from 03/29/2019 to 03/31/2019 after presenting [...] with your primary care provider in [place], [place] for ongoing monitoring of this. - Follow-up in [facility] (Dr. Diehl) in approximately 3 months??? [...] only on level surfaces with therapist managing threat monitoring analyst while inpatient. Stairs not assessed. RECOMMENDATIONS: Recommend [...] by Jessie Candelario P.T., D.P.T. Contact information: [facility], [address] Ber[address] Gaytan, Laquita Guardado - 04/05/2019 7:21 AM CDT Take a copy of this after visit summary to your appointment(s). [place], [place] April 10, 2019 -Tuesday --11:15 AM - Hospital Follow-Up with Dr. Rosalva MD Colleague of Juana Franz MD primary care provider, at [facility] RECOMMENDATIONS: * * [facility] You may have outpatient appointments at [facility] that changed during your hospitalization. Refer to your [facility] Patient Visit Guide (PVG) for the most current schedule of appointments and detailed instructions of tests/procedures. Call [phone], if you did not receive an PVG or need to CANCEL any [facility] appointment(s). You were discharged [...] No acute overnight events. Vertigo has improved. Cnky-cg-oontrmdr headache continues. No new symptoms or concerns. [...] 0 I/O / 0701 - 05/08 0700 05/ 07 - / 0700 05/ 0701 - / [...] use disorder who initially was admitted to [facility] from 03/29/2019 to 03/31/2019 after presenting [...] admission. BILLING: #1 Stroke (HCC) Catalina Panchal R.N. - 04/05/2019 12:27 PM CDT I [...] 04/04/19 1930 warfarin management (COUMADIN) oral Daily 04/04/191919 INR reversal agents were not given. Warfarin Reversal Agent Administrations (last 168 hours) Vitamin K, FFP, and K-Centra None Warfarin Administrations (last 168 hours) None INR (no units) Date Value Status 04/04/2019 1.8 Final 03/31/2019 1.0 Final 03/30/2019 1.0 Final 03/30/2019 1.0 Final A/P: Per patient, her INR is being followed by a provider at the [facility]. Dose was increased to 1.5 [...] VISIT Stroke/TIA HISTORY OF PRESENT ILLNESS Ms.??Angie JorgeBritton Demetri??is a 53 y.o.??female??with PMH including gastric bypass [...] Rhinosinusitis Chronic 03/01/2019 ??? Stroke ([facility]) 03/29/2019 ??? Anxiety Generalized Disorder 03/29/2019 ??? Chronic Pain Syndrome 03/29/2019 ??? Fibromyalgia 03/29/2019 ??? 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 Sinusitis Recurrent 03/29/2019 ??? 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 Nicotine Dependence Cigarettes 03/29/2019 ??? 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 Transient Ischemic Attack ??? Aneurysm Cerebral Unruptured ([facility]) 03/30/2019 ??? Patent Foramen Ovale ([facility]) 03/31/2019 Current Facility-Administered Medications: ??? acetaminophen tablet 1,000 mg (TYLENOL), 1,000 mg, oral, Q6H, Beau Hall M.D., 1,000 mg at 04/05/19 0831 ??? albuterol 90 mcg/actuation inhaler 2 puff (PROVENTIL HFA,VENTOLIN HFA), 2 puff, inhalation, Q6H PRN, AbarbanelClemente M.D. ??? albuterol nebulizer solution 2.5 mg (ACCUNEB), 2.5 mg, nebulization, Q6H PRN, AbarbanelClemente M.D. ??? alum-mag hydroxide-simeth 200-200-20 mg/5 mL [...] 70 mg (LOVENOX), 70 mg, subcutaneous, BID, Celmente Aiken M.D., 70 mg at 04/05/19 0850 [...] no new changes. MRI may not change attendant at this point as she is now [...] review of records from her recent admission: .??Angie Mosquera??is a 53 y.o.??female??with PMH including [...] 0 and symmetric in all muscle groups. Yksxer-csrr-bpgegf and heel- montes testing is normal. Deep [...] clarify this, but would not necessarily change attendant. An MRI brain with and without contrast [...] baseline. Have triaged to therapy only; no insurance verification rep consult appears to be necessary at this time. If at any time, the therapists or referring service feel that a insurance verification rep review is necessary, please send a new consult request with only the Physician consult - Physical Medicine and Rehabilitation consult (hospital) item selected. Carley Dumont M.S., O.T. - 04/05/2019 1:31 PM CDT Occupational Therapy Acute Hospital Inpatient Evaluation/Treatment SUBJECTIVE Patient's Name: Angie Mosquera Referring/Attending Provider: Nna Rios M.D. Medical Diagnosis: Stroke (HCC) [I63.9] [...] Prior Function / Occupational Profile Level of [place]: Independent with ADLs and functional transfers Lives [...] Goal Met 04/05/19 Progress: Improving as expected @[id number]([id number])@ Plan Patient agrees with the plan of [...] Prior Function / Occupational Profile Level of [place]: Independent with ADLs and functional transfers Lives [...] for safety and for therapist to bring threat monitoring analyst, no obvious loss of balance noted, patient appeared steady with quick turns Training/Intervention: supervision for therapist to bring threat monitoring analyst Response: Patient mobilizing 200+ meters with no [...] for safety and for therapist to bring threat monitoring analyst, no obvious loss of balance noted, patient appeared steady with quick turns Training/Intervention: supervision for therapist to bring threat monitoring analyst Response: Patient mobilizing 200+ meters with no [...] use disorder who initially was admitted to [facility] from 03/29/2019 to 03/31/2019 after presenting [...] Potassium, S 4.1 3.6 - 5.2 04/05/2019 [facility] mmol/L 9:28 AM CDT LABORATORIES - [facility] Sodium, S 142 135 - 145 04/05/2019 [facility] mmol/L 9:28 AM CDT LAB[facility]ATORIES - [facility] Chloride, S 105 98 - 107 04/05/2019 [facility] mmol/L 9:28 AM CDT LABORATORIES - [facility] Bicarbonate, S 25 22 - 29 04/05/2019 [facility] mmol/L 9:28 AM CDT [facility]ATORIES - [facility] Anion Gap 12 7 - 15 04/05/2019 [facility] 9:28 AM CDT [facility]ATORIES - [facility] BUN (Blood Urea 20 6 - 21 04/05/2019 [facility] Nitrogen), S mg/dL 9:28 AM CDT LABORATORIES [facility] Creatinine 0.88 0.59 - 04/05/2019 [facility] 1.04 mg/dL 9:28 AM CDT LABORATORIES [facility] eGFR-Non 74 >=60 04/05/2019 [facility] Black/ mL/min/BSA 9:28 AM CDT LABORATORIES [facility] Comment: ----ADDITIONAL INFORMATION---- Estimated GFR calculated using the 2009 CKD_EPI creatinine equation. eGFR-Black/ 86 >=60 mL/min/BSA 04/05/2019 9:28 [facility] CDT LABORATORIES [facility] Comment: ----ADDITIONAL INFORMATION---- Estimated GFR calculated using the 2009 CKD_EPI creatinine equation. Calcium, Total, S 9.2 8.6 - 10.0 mg/dL 04/05/2019 9:28 AM [facility] Glucose, S 124 70 - 140 mg/dL 04/05/2019 9:28 AM [facility] CDT [facility] S Specimen Anatomical Collection Method Collection Time Receive d Time (Source) Location / / Volume Laterality Blood (Blood, 04/05/2019 8:07 AM 04/05/20 19 8:26 Venous) CDT AM CDT Clemente Aiken M.D. LAB BLOOD ADD-ON Performing Organization Address City/State/ZIP Code Phon e Number [facility] LABORATORIES - [address] [place] [id number] [facility] CBC with Differential, Blood (04/05/2019 8:07 AM CDT) [facility] Method Time Signature Hemoglobin 12.9 11.6 - 04/05/2019 [facility] 15.0 g/dL 8:38 AM CDT LABORATORIES [facility] Hematocrit 38.0 35.5 - 04/05/2019 [facility] 44.9 % 8:38 AM CDT LABORATORIES [facility] Erythrocytes 3.94 3.92 - 04/05/2019 [facility] 5.13 8:38 AM CDT LABORATORIES - x10(12)/L [facility] MCV 96.4 78.2 - 04/05/2019 [facility] 97.9 fL 8:38 AM CDT LABORATORIES [facility] RBC Distrib Width 13.2 12.2 - 04/05/2019 [facility] 16.1 % 8:38 AM CDT LAB[facility]ATORIES - [facility] Platelet Count 226 157 - 371 04/05/2019 [facility] x10(9)/L 8:38 AM CDT [facility]ATORIES - [facility] Leukocytes 5.5 3.4 - 9.6 04/05/2019 [facility] x10(9)/L 8:38 AM CDT [facility]ATORIES - [facility] Neutrophils 3.00 1.56 - 04/05/2019 [facility] 6.45 8:38 AM CDT LABORATORIES - x10(9)/L [facility] Lymphocytes 1.84 0.95 - 04/05/2019 [facility] 3.07 8:38 AM CDT LABORATORIES - x10(9)/L [facility] Monocytes 0.37 0.26 - 04/05/2019 [facility] 0.81 8:38 AM CDT LABORATORIES - x10(9)/L [facility] Eosinophils 0.22 0.03 - 04/05/2019 [facility] 0.48 8:38 AM CDT LABORATORIES - x10(9)/L [facility] Basophils 0.05 0.01 - 04/05/2019 [facility] 0.08 8:38 AM CDT LABORATORIES - x10(9)/L [facility] Specimen Anatomical Collection Method Collection Time Receive d Time (Source) Location / / Volume Laterality Blood (Blood, 04/05/2019 8:07 AM 04/05/20 19 8:26 Venous) CDT AM CDT Clemente Aiken M.D. LAB BLOOD ADD-ON Performing Organization Address City/State/ZIP Code Phon e Number [facility] LABORATORIES - [address] [place], [place] [address] [facility] (ABNORMAL) Prothrombin Time (PT/INR) (04/05/2019 8:07 AM CDT) [facility] gist Method Time Signature Prothrombin 21.9 (H) 9.4 - 04/05/2019 [facility] Time, P 12.5 sec 8:44 AM CDT LABORATORIES [facility] INR 2.0 0.9 - 1.1 04/05/2019 [facility] 8:44 AM CDT LABORATORIES [facility] [...] Number [facility] LABORATORIES - [address] [place], [place] [address] [facility] CT Head [...] athologist Signature Heparin 0.81 IU/mL 04/04/2019 [facility] Anti-Xa, P 7:40 PM CDT LABORATORIES - [facility] Comment: UFH therapeutic range: ?? [...] LAB BLOOD NON ADD-ON Performing Organization Address [facility] Phon e Number [facility] LABORATORIES - [address] [place], [place] [address] [facility] (ABNORMAL) Prothrombin Time (PT/INR) (04/04/2019 5:25 PM CDT) [facility] [employer] Method Time Signature Prothrombin 20.1 (H) 9.4 - 04/04/2019 [facility] Time, P 12.5 sec 5:54 PM CDT LABORATORIES [facility] INR 1.8 0.9 - 1.1 04/04/2019 [facility] 5:54 PM CDT [facility] - [facility] Comment: ----ADDITIONAL INFORMATION---- Standard intensity warfarin therapeutic range: 2.0 to 3.0 ?? High intensity warfarin therapeutic rang e: 2.5 to 3.5 Specimen Anatomical Collection Method Collection Time Receive d Time (Source) Location / / Volume Laterality Blood (Blood, 04/04/2019 5:25 PM 04/04/20 19 5:32 Venous) CDT PM CDT Clemente Aiken M.D. LAB BLOOD ADD-ON Performing Organization Address [facility] Phon e Number [facility] LABORATORIES - [address] [place] [address] [facility] (ABNORMAL) CBC with Differential, Blood (04/04/2019 5:25 PM CDT) [facility] [employer] Method Time Signature Hemoglobin 12.1 11.6 - 04/04/2019 [facility] 15.0 g/dL 5:35 PM CDT [facility] Hematocrit 36.3 35.5 - 04/04/2019 [facility] 44.9 % 5:35 PM CDT [facility] Erythrocytes 3.76 (L) 3.92 - 04/04/2019 [facility] 5.13 5:35 PM CDT LABORATORIES - x10(12)/L [facility] MCV 96.5 78.2 - 04/04/2019 [facility] 97.9 fL 5:35 PM CDT LABORATORIES - [facility] RBC Distrib 12.9 12.2 - 04/04/2019 [facility] Width 16.1 % 5:35 PM CDT LABORATORIES - [facility] Platelet Count 224 157 - 371 04/04/2019 [facility] x10(9)/L 5:35 PM CDT LAB[facility]ATORIES - [facility] Leukocytes 4.6 3.4 - 9.6 04/04/2019 [facility] x10(9)/L 5:35 PM CDT LAB[facility]ATORIES - [facility] Neutrophils 2.09 1.56 - 04/04/2019 [facility] 6.45 5:35 PM CDT LABORATORIES - x10(9)/L [facility] Lymphocytes 1.88 0.95 - 04/04/2019 [facility] 3.07 5:35 PM CDT LABORATORIES - x10(9)/L [facility] Monocytes 0.39 0.26 - 04/04/2019 [facility] 0.81 5:35 PM CDT LABORATORIES - x10(9)/L [facility] Eosinophils 0.18 0.03 - 04/04/2019 [facility] 0.48 5:35 PM CDT LABORATORIES - x10(9)/L [facility] Basophils 0.04 0.01 - 04/04/2019 [facility] 0.08 5:35 PM CDT LABORATORIES - x10(9)/L [facility] Specimen Anatomical Collection Method Collection Time Receive d Time (Source) Location / / Volume Laterality Blood (Blood, 04/04/2019 5:25 PM 04/04/20 19 5:32 Venous) CDT PM CDT Clemente Aiken M.D. LAB BLOOD ADD-ON Performing Organization Address City/State/ZIP Code Phon e Number [facility] LABORATORIES - [address] [place], [place] [address] [facility] (ABNORMAL) APTT (Activated Partial Thromboplastin Time) (04/04/2019 5:25 PM CDT) Analysis Performed At Patho logist Time Signature Activated 44 (H) 25 - 37 04/04/2019 [facility] Partial sec 5:57 PM CDT LABORATORIES - Thrombopl [facility] Specimen Anatomical Collection Method Collection Time Receive d Time (Source) Location / / Volume Laterality Blood (Blood, 04/04/2019 5:25 PM 04/04/20 19 5:32 Venous) CDT PM CDT Clemente Aiken M.D. LAB BLOOD ADD-ON Performing Organization Address City/[facility]/ZIP Code Phon e Number [facility] LABORATORIES - [address] [place], [place] [address] [facility] Magnesium (04/04/2019 5:25 PM CDT) P athologist Signature Magnesium, S 2.3 1.7 - 2.3 04/04/2019 [facility] mg/dL 6:21 PM CDT LABORATORIES - [facility] Specimen Anatomical Collection Method Collection Time Receive d Time (Source) Location / / Volume Laterality Blood (Blood, 04/04/2019 5:25 PM 04/04/20 19 5:40 Venous) CDT PM CDT Clemente Aiken M.D. LAB BLOOD ADD-ON Performing Organization Address City/[facility]/ZIP Code Phon e Number [facility] LABORATORIES - [address] [place] [address] [facility] Phosphorus Inorganic (04/04/2019 5:25 PM CDT) Analysis Performed At Patho logist Time Signature Phosphorus 3.8 2.5 - 4.5 04/04/2019 [facility] (Inorganic), S mg/dL 6:21 PM CDT LABORATORIES - [facility] Specimen Anatomical Collection Method Collection Time Receive d Time (Source) Location / / Volume Laterality Blood (Blood, 04/04/2019 5:25 PM 04/04/20 19 5:40 Venous) CDT PM CDT Clemente Aiken M.D. LAB BLOOD ADD-ON Performing Organization Address City/[facility]/ZIP Code Phon e Number [facility] LABORATORIES - [address] [place], [place] [address] [facility] (ABNORMAL) Comprehensive Metabolic Panel (04/04/2019 5:25 PM CDT) Patholo gist Method Time Signature Potassium, S 3.5 (L) 3.6 - 5.2 04/04/2019 [facility] mmol/L 6:21 PM CDT LABORATORIES [facility] Sodium, S 141 135 - 145 04/04/2019 [facility] mmol/L 6:21 PM CDT LABORATORIES - [facility] Chloride, S 105 98 - 107 04/04/2019 [facility] mmol/L 6:21 CDT LABORATORIES - [facility] Bicarbonate, S 23 22 - 29 04/04/2019 [facility] mmol/L 6:21 CDT LAB[facility]ATORIES - [facility] Anion Gap 13 7 - 15 04/04/2019 [facility] 6:21 PM CDT LAB[facility]ATORIES - [facility] BUN (Blood Urea 20 6 - 21 04/04/2019 [facility] Nitrogen), S mg/dL 6:21 CDT LABORATORIES - [facility] Creatinine 0.90 0.59 - 04/04/2019 [facility] 1.04 6:21 CDT LABORATORIES - mg/dL [facility] eGFR-Non 72 >=60 04/04/2019 [facility] Black/ mL/min/BS 6:21 CDT LABORATORIES - [place] [facility] Comment: ----ADDITIONAL INFORMATION---- Estimated GFR calculated using the 2009 CKD_EPI creatinine equation. eGFR-Black/ 83 >=60 mL/min/BSA 04/04/2019 6:21 [facility] [place] CDT LABORATORIES - [facility] Comment: ----ADDITIONAL INFORMATION---- Estimated GFR calculated using the 2009 CKD_EPI creatinine equation. Calcium, Total, S 8.6 8.6 - 10.0 04/04/2019 6:21 [facility] mg/dL CDT LABORATORIES [facility] Glucose, S 96 70 - 140 04/04/2019 6:21 [facility] mg/dL CDT LABORATORIES [facility] Protein, Total, S 6.2 (L) 6.3 - 7.9 04/04/2019 6:21 [facility] g/dL CDT LABORATORIES [facility] Albumin, S 4.1 3.5 - 5.0 04/04/2019 6:21 [facility] g/dL CDT LABORATORIES [facility] Aspartate 21 8 - 43 U/L 04/04/2019 6:21 [facility] Aminotransferase (AST), CDT LABORA TORIES - S [facility] Alkaline Phosphatase, S 73 35 - 104 U/L 04/04/2019 6: 21 [employer] [facility] CDT LABORATORIES [facility] Alanine Aminotransferase 14 7 - 45 U/L 04/04/2019 6:2 1 [facility] (ALT), S PM CDT LABORATORIES - [facility] Bilirubin, Total, S 0.2 <=1.2 mg/dL 04/04/2019 6:21 [facility] PM CDT LABORATORIES - [facility] Specimen Anatomical Collection Method Collection Time Receive d Time (Source) Location / / Volume Laterality Blood (Blood, 04/04/2019 5:25 PM 04/04/20 5:40 Venous) CDT PM CDT Clemente Aiken M.D. LAB BLOOD ADD-ON Performing Organization Address City/State/ZIP Code Phon e Number [facility] LAB[facility]ATORIES - [address] [place], [place] [address] [facility] [...] First dose on Clementine 04/05/19 at 0900 tiZANidine tablet 2 mg (ZANAFLEX) [...] First dose on Clementine 04/05/19 at 0800 atorvastatin tablet 40 mg (LIPITOR) [...] at 2130 FLUoxetine capsule 60 mg (PROzac) 08 (Given - Provider: Dia Stafford R.N.) 60 [...] iodine/mL solution 1-200 mL (OMNIPAQUE) (COMP LETED) 1931 (Given - Provider: Kiara Curry R.N., CRN - Comment: LOT# [id number]) 1-200 mL, intravenous, Once in imaging, contrast, [...] (ROXICODONE) 1016 (Given - Provider: Dia Stafford RBetsy) 10 mg, oral, Every 6 hours PRN, [...] 2314 ( Given - Provider: Beryl Cleary RBetsy) 2 mg, oral, Every 8 hours PRN, muscle spasms, Starting on 07/16 at 1654 documented in this encounter Additional Health Concerns Assessment Noted Time PHQ-9 Depression Total Score: 5 04/05/2019 8:00 AM CDT documented as of this encounter
--- OUTSIDE RECORDS SUMMARY | 2022-09-20 14:16 | XMS_ITS | Encounter Summary ---
:1965 Author Organization [facility] Address [address] [place] [id number] Care Team Providers Name Role Phone Unavailable Primary Care Provider Unavailable Reason for Referral Outpatient (Routine) - Closed Specialty Diagnoses / Procedures Referred By Contact Refer red To Contact Neurology Diagnoses Stroke (HCC) Thrombosis Arterial (HCC) Aneurysm Cerebral Unruptured (HCC) Fernie Soriano M.D. [facility] [address] [place] [phone] Referral ID Status Reason Start Date Expiration Date Visits Requ ested Visits Authorized [id number] Closed 03/31/2019 03/30/2020 1 1 Reason for Visit Reason Comments Dizziness Evaluated in [place] with [place] scan. Headache Encounter Details Date Type Department Care Team Description 03/29/2019 - Hospital Encounter [facility] Alfredo Rausch M.D., M.A. [address] [phone] Stroke (HCC) (Primary Dx); [facility] [address] [place] [address] [phone] Transient Ischemic Attack; [facility] [address] [place] [address] [phone] Thrombosis Arterial (HCC); [facility], Nicotine Dependence Cigarettes; Second floor Aneurysm Cerebral Unruptured ([facility]) [address] [place] [address] Social History Tobacco Use Types [...] you attend adventism or Patient refused 2021 bahai services? Do [...] patient, follows with Dr. Estephanie Franz in [place], [place]. Primary Care Provider Phone Number: None [...] and PCP follow-up with Dr. Franz in [place], [place], scheduled for 04/02/2019. - Please be [...] 04/10/2019 2:15 PM Darlin Olmedo M.D. ENT [facility] RST Spec TEST RESULTS PENDING AT DISCHARGE Pending [...] speech at the time. She presented to [facility], where MRI/MRA head showed multiple foci of [...] was discharged on a , our clinical baking assistant will arrange for PCP follow-up and [...] speech at the time. She presented to [facility], where MRI/MRA head showed multiple foci of [...] was discharged on a weekend, our clinical baking assistant will arrange for PCP follow-up and INR checks on Tuesday. RECOMMENDATIONS: - Patient to continue enoxaparin 70 mg (1 mg/kg) BID bridge to warfarin with goal INR 2-3. Patient to receive INR checks and PCP follow-up with Dr. Franz in [place], [place] as soon as possible after discharge. --- Please be sure to follow up with your primary care provider regarding this. - CTA in approximately 1 year (March 2020) to follow up paraclinoid ICA aneurysm - Repeat imaging in 3 months with CTA to ensure resolution of the vertebral artery thrombus. Patientto be seen by Dr. Diehl following this study. Laquita Guardado - 03/30/2019 7:13 AM CDT Take a copy of this after visit summary to your appointment(s). [place], [place] April 02, 2019 - Tuesday --12:30 PM - Hospital Follow-Up with Dr. Gold MD, Colleague of Juana Franz MD, primary care provider, at [facility] RECOMMENDATIONS: * April 02, 2019 at 9:[address] [facility] INR Check * [facility] You may have outpatient appointments at [facility] that changed during your hospitalization. Refer to your [facility] Patient Visit Guide (PVG) for the most current schedule of appointments and detailed instructions of tests/procedures. Call [phone], if you did not receive an PVG or need to CANCEL any [facility] appointment(s). You were discharged from the [...] are intact. There is no dysmetria on rnmmvd-hx-uzxu and uobz-zg-gapr. There are no abnormal or extraneous movements. [...] next week (to be arranged by clinical baking assistant, in-basket message sent). Will also require [...] --Will arrange for PCP appt (Dr. Franz, [place], [place]) for INR monitoring 04/02 or earliest [...] page the neurology stroke/cerebrovascular disease service pager ([phone]) with any questions orconcerns. Kylie Rubio RRebekah. [...] are intact. There is no dysmetria on goglaw-zp-ipru and opry-iz-vmxg. There are no abnormal or extraneous movements. [...] Findings discussed at 2:03 p.m with pager [phone] Additional Diagnostic Studies Ecg 12 Lead Result [...] page the neurology stroke/cerebrovascular disease service pager [phone]) with any questions orconcerns. documented in this [...] day of presentation and came to [facility], although head CT did not demonstrate [...] developed a headache approximately 45 min later. [place] room was tilting, not spinning, and had [...] dull and mild now. She presented to [facility], where MRI/MRA head showed multiple foci of [...] are intact. There is no dysmetria on rjlejv-pc-repj and ladm-xy-xzhb. There are no abnormal or extraneous movements. [...] Findings discussed at 2:03 p.m with pager [phone] Additional Diagnostic Studies ASSESSMENT / PLAN Ms. [...] consult placed Diet: general diet, [facility] Tubes/lines: Will place PIV VTE prophylaxis: therapeutic anticoagulation Code status: Full Code Disposition: Likely Home with expected discharge date pending Trent Ferrer M.D. 03/29/19 Please page the stroke/cerebrovascular neurology service pager [phone]) for any questions or concerns. STROKE DOCUMENTATION: [...] Prior Function / Occupational Profile Level of [place]: Independent with ADLs and functional transfers, Independent [...] Score: 24 Basic Mobility Standardized Score: 61.14 [facility] 0-100% Score: 0 % Basic Mobility [facility] Modifier: CH INTERPRETATION: Clinicians answer the AM-PAC [...] 53 y.o. female who was seen at [facility] and is being evaluated for Tobacco [...] Prior Function / Occupational Profile Level of [place]: Independent with ADLs and functional transfers, Independent [...] be independent with home exercise resistive theraband (Startex) program for left shoulder and elbow (MET) OT Goal #3 Date: 03/30/19 @FLOW12([id number])@ Plan Patient agrees with the plan of [...] living independently in her own apartment in [place] until yesterday morning when she noted the [...] Ms. Mosquera was initially taken to the [facility] where MRI/MRA (images which I reviewed in QREADS) revealed bila teral small areas of restricted diffusion in posterior distribution involving both the cerebellar and occipital lobes. The etiology was presumed embolic and she was transferred to [place] for further evaluation here. Upon arrival at [place], Ms. Mosquera was described as alert, in [...] has lived alone in an apartment in [place] for,I believe, 5 years. She is unemployed, [...] tone: Upper and lower extremities 0/0. Coordination: Qyngwh-zh-obip was 0/0. Satellite sign was symmetric. Cranial nerves II through XII: Extraocular movements were intact. Visual jhaveri were intact. Fgfj-op-unggpzrc decreased hearing acuity bilaterally. Smile symmetric. Tongue [...] diagnostic data. 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 Kylie Rubio RBrittonN. - 03/30/2019 9:58 AM CDT ASSESSMENT Unable [...] 53 y.o. female who presents to the [facility] for evaluation of vertigo and [...] an Emergency Neurology consult note. Please page [phone] with any additional questions. I personally spent [...] stable and no neuro change overnight. Reports 7-8/10 chronic fibromyalgia pain treated with PRNs. Currently [...] CHIEF COMPLAINT/REASON FOR VISIT Dizziness (Evaluated in [place] with CT scan. ) and Headache HISTORY OF PRESENT ILLNESS 53-year-old female who presents from outside facility to [facility] ED with a chief concern of [...] She was transported from outside hospital to [facility] for further evaluation management by Neurology [...] do basic arithmetic No visual agnosia No tmvg-uw-pypoz agnosia Tcyqxy-jw-oaej normal Fiee-hk-ispf normal Skin: Skin is warm, dry, intact [...] to the emergency department by ambulance from [facility] for evaluation of headache and difficulty with balance. Patient states that she woke up this morning and felt like her body was drunk. She subsequently developed a headache. She was seen at the outside hospital and underwent neuro imaging, laboratory evaluation, EKG testing. She now presents for [facility] at [facility]. She is currently complaining of fatigue only. Neuro imaging at [place]: MRI head MRA demonstrates multiple foci of [...] speech at the time. She presented to [facility], where MRI/MRA head showed multiple foci of [...] was discharged on a weekend, our clinical baking assistant will arrange for PCP follow-up and INR checks on Tuesday. documented in this encounter Plan of Treatment Scheduled Referrals Name Type Priority Associated Order Schedule Diagnoses Neurology - Outpatient Routine Stroke ([facility]) Expected: Cerebrovascular consult Referral Thrombosis 02/2019 (clinic) Arterial ([facility]) (Approximate), Aneurysm Cerebral Expires: Unruptured ([facility]) 03/31/2022 documented as of this encounter Procedures [...] - Routine 03/30/2019 5:32 Results for HOSPITAL SOLIDWORKS DESIGNER - PM CDT this proc edure MONITORED [...] N/A Computed Tomography ARZ LOS, Neuroradiology FLA [facility] [...] the ventral aspect (series 6 image s [id number]). The lumen remains significantly irregular and there [...] well seen. The RADHA, MCA, a nd LICENSED INSURANCE AGENT branches are unremarkable in appearance. Stable postoperative [...] the ventral aspect (series 6 image s [id number]). The lumen remains significantly irregular and there [...] well seen. The RADHA, MCA, a nd LICENSED INSURANCE AGENT branches are unremarkable in appearance. Stable postoperative [...] Prothrombin Time (PT/INR) (03/31/2019 8:12 AM CDT) [facility] Method Time Signature Prothrombin 11.5 9.4 - 12.5 03/31/2019 [facility] Time, P sec 8:46 AM CDT [facility] INR 1.0 0.9 - 1.1 03/31/2019 [facility] 8:46 AM CDT [facility] Comment: ----ADDITIONAL INFORMATION---- Standard [...] City/State/ZIP Code Phon e Number [facility] - [address] [facility] [address] [place] [address] [facility] CBC without Differential (03/31/2019 8:12 AM CDT) [employer] gist Method Time Signature Hemoglobin 12.9 11.6 - 03/31/2019 [facility] 15.0 g/dL 8:37 AM CDT [facility] Hematocrit 39.6 35.5 - 03/31/2019 [facility] 44.9 % 8:37 AM CDT [facility] Erythrocytes 4.06 3.92 - 03/31/2019 [facility] 5.13 8:37 AM CDT LABORATORIES - x10(12)/L [facility] MCV 97.5 78.2 - 03/31/2019 [facility] 97.9 fL 8:37 AM CDT [facility] RBC Distrib Width 13.2 12.2 - 03/31/2019 [facility] 16.1 % 8:37 AM CDT [facility] Platelet Count 256 157 - 371 03/31/2019 [facility] x10(9)/L 8:37 AM CDT [facility] Leukocytes 5.3 3.4 - 9.6 03/31/2019 [facility] x10(9)/L 8:37 AM CDT [facility] Specimen Anatomical Collection Method Collection Time Receive d Time (Source) Location / / Volume Laterality Blood (Blood, 03/31/2019 8:12 AM 03/31/20 19 8:31 Venous) CDT AM CDT Trent Ferrer M.D. LAB BLOOD ADD-ON Performing Organization Address City/State/ZIP Code Phon e Number [facility]ATORIES - [address] [place], [place] [address] [facility] HOLTER MONITOR - HOSPITAL SOLIDWORKS DESIGNER - MONITORED IN HOSPITAL OR ED DISCHARGE (03/30/2019 5:32 PM CDT) [employer] gist Method Time Signature Recording Date [id number] HOLTER SENTINEL Analysis Date 20,190,510 HOLTER SENTINEL Max Heart Rate 125 bpm HOLTER SENTINEL Max Heart Rate [id number] HOLTER Time SENTINEL Min Heart Rate 46 bpm HOLTER SENTINEL Min Heart Rate [id number] HOLTER Time SENTINEL Mean Heart 71 bpm [...] count HOLTER Hour SENTINEL VE Max Per [id number] HOLTER Hour Time SENTINEL AF Count 0 count HOLTER SENTINEL SVT Runs 0 count HOLTER SENTINEL SVE Total 106 count HOLTER Beats SENTINEL SVE Percent 0 percent HOLTER Beats SENTINEL SVE Max Per 18 count HOLTER Hour SENTINEL SVE Max Per [id number] HOLTER Hour Time SENTINEL Specimen (Source) Anatomical [...] superior vena cava. Patent foramen ovale. ??No szae-qi-jtixa shunt at atrial level. ??Agitated saline injection(s) performed. ??Small osjew-ng-kzbx shunt a t atrial level at rest and with Valsalva release. Pericardial effusion. ??PROCEDURE ??Max sesophageal echocardiogram performed at the request of the primary stamp machine servicer. ??Adult probe inserted without difficulty. ??Procedure [...] Sedation Narrator or other pertinent record in [facility] for additional procedure and sedation in formation. [...] superior vena cava. Patent foramen ovale. No bffk-hp-sdtkp s ballesteros at atrial level. Agitated saline injection(s) performed. Small lkrna-ey-cozj shunt at atrial level at rest and with Valsalva release. Pericardial effusion. PROCEDURE Transeso phageal echocardiogram performed at the request of the primary stamp machine servicer. Adult pr obe inserted without difficulty. [...] Sedation Narrator or other pertinent record in [facility] for additional procedure and sedation in formation. Transesophageal echocardiogram completed without complications. For the complete report, see the Order-L evel Documents below. See PDF For Result Trent Ferrer M.D. CV ECHO PROCEDURES Prothrombin Time (PT/INR) (03/30/2019 11:42 AM CDT) [facility] Method Time Signature Prothrombin 11.3 9.4 - 12.5 03/30/2019 [facility] Time, P sec 12:05 PM CDT [facility] INR 1.0 0.9 - 1.1 03/30/2019 [facility] 12:05 PM CDT [facility] Comment: ----ADDITIONAL INFORMATION---- Standard [...] City/State/ZIP Code Phon e Number [facility] - [address] [place], [place] [address] [facility] ECG 12 Lead (03/30/2019 9:30 AM CDT) P athologist Signature Ventricular Rate 53 BPM MUSE ECG/Min DE Interval 150 ms MUSE QRSD Interval 84 ms MUSE QT Interval 452 ms MUSE QTC Interval 424 ms MUSE P [place] 7 degrees MUSE R [place] -11 degrees MUSE T Wave [place] 1 degrees MUSE Specimen Anatomical Collection Method [...] 4.1 3.6 - 5.2 03/30/2019 [facility] mmol/L 7:41 AM CDT [facility] - [facility] Sodium, S 141 135 - 145 03/30/2019 [facility] mmol/L 7:41 AM CDT [facility] - [facility] Chloride, S 106 98 - 107 03/30/2019 [facility] mmol/L 7:41 AM CDT [facility] - [facility] Bicarbonate, S 24 22 - 29 03/30/2019 [facility] mmol/L 7:41 AM CDT [facility] Anion Gap 11 7 - 15 03/30/2019 [facility] 7:41 AM CDT [facility] BUN (Blood Urea 14 6 - 21 03/30/2019 [facility] Nitrogen), S mg/dL 7:41 AM CDT [facility] - [facility] Creatinine 0.73 0.59 - 03/30/2019 [facility] 1.04 mg/dL 7:41 AM CDT [facility] eGFR-Non >90 >=60 03/30/2019 [facility] Black/ mL/min/BSA 7:41 AM CDT [facility] Comment: ----ADDITIONAL INFORMATION---- Estimated GFR calculated using the 2009 CKD_EPI creatinine equation. eGFR-Black/ >90 >=60 mL/min/BSA 03/30/2019 7:41 [facility] CDT [facility] Comment: ----ADDITIONAL INFORMATION---- Estimated GFR calculated using the 2009 CKD_EPI creatinine equation. Calcium, Total, S 8.9 8.6 - 10.0 mg/dL 03/30/2019 7:41 AM [facility] S Glucose, S 100 70 - 140 mg/dL 03/30/2019 7:41 AM [facility] S Specimen Anatomical Collection Method Collection Time Receive d Time (Source) Location / / Volume Laterality Blood (Blood, 03/30/2019 6:21 AM 03/30/20 19 6:52 Venous) CDT AM CDT Trent Ferrer M.D. LAB BLOOD ADD-ON Performing Organization Address City/State/ZIP Code Phon e Number [facility]IES - [address] (ABNORMAL) CBC without Differential (03/30/2019 6:21 AM CDT) [facility] Method Time Signature Hemoglobin 12.5 11.6 - 03/30/2019 [facility] 15.0 g/dL 6:54 AM CDT [facility] Hematocrit 37.9 35.5 - 03/30/2019 [facility] 44.9 % 6:54 AM CDT [facility] Erythrocytes 3.87 (L) 3.92 - 03/30/2019 [facility] 5.13 6:54 AM CDT LABORATORIES - x10(12)/L [facility] MCV 97.9 78.2 - 03/30/2019 [facility] 97.9 fL 6:54 AM CDT [facility] RBC Distrib 13.5 12.2 - 03/30/2019 [facility] Width 16.1 % 6:54 AM CDT [facility] Platelet Count 245 157 - 371 03/30/2019 [facility] x10(9)/L 6:54 AM CDT [facility] Leukocytes 4.1 3.4 - 9.6 03/30/2019 [facility] x10(9)/L 6:54 AM CDT [facility] - [facility] Specimen Anatomical Collection Method Collection Time Receive d Time (Source) Location / / Volume Laterality Blood (Blood, 03/30/2019 6:21 AM 03/30/20 19 6:44 Venous) CDT AM CDT Trent Ferrer M.D. LAB BLOOD ADD-ON Performing Organization Address City/[facility] Phon e Number [facility] - [address] [place] [address] [facility] Coagulation Factor II Activity Assay (03/30/2019 6:20 AM CDT) athologist Signature Coag Factor II 93 75 - 145 % 03/30/2019 [facility] Assay, P 11:53 AM CDT [facility] Comment: ----ADDITIONAL INFORMATION---- This test has been modified from the [place] josephurer's instructions. Its performance characteri stics were determined by [facility] in a manner co nsistent with CLIA requirements. This test has not bee n cleared or approved by the U.S. Food and Drug Admin istration. Specimen Anatomical Collection Method Collection Time Receive d Time (Source) Location / / Volume Laterality Blood 03/30/2019 6:20 AM 9 CDT 11:12 AM CDT Trent Ferrer M.D. LAB BLOOD ADD-ON Performing Organization Address City/[facility] Phon e Number [facility]IES - [address] [place] [address] [facility] Protein S Antigen, Total (03/30/2019 6:20 AM CDT) athologist Signature Protein S Ag, 91 80 - 160 % 03/30/2019 [facility] Total, P 11:04 AM CDT [facility] Comment: ----ADDITIONAL INFORMATION---- This test has been modified from the [place] Clear2Payacturer's instructions. Its performance characteri stics were determined by [facility] in a manner co nsistent with CLIA requirements. This test has not bee n cleared or approved by the U.S. Food and Drug Admin istration. Specimen Anatomical Collection Method Collection Time Receive d Time (Source) Location / / Volume Laterality Blood 03/30/2019 6:20 AM 9 7:17 CDT AM CDT Trent Ferrer M.D. LAB BLOOD NON ADD-ON Performing Organization Address City/[facility]/ZIP [facility] Phon e Number [facility]IES - [address] [place], [place] [address] [facility] Reptilase Time, Plasma (03/30/2019 6:20 AM CDT) athologist Signature Reptilase 17 14 - 23 03/30/2019 [facility] Time, P sec 9:49 AM CDT [facility] Comment: ----ADDITIONAL INFORMATION---- This test has been modified from the kyle ruizurer's instructions. Its performance characteri stics were determined by [facility] in a manner co nsistent with CLIA requirements. This test has not bee n cleared or approved by the U.S. Food and Drug Admin istration. Specimen Anatomical Collection Method Collection Time Receive d Time (Source) Location / / Volume Laterality Blood 03/30/2019 6:20 AM 9 7:17 CDT AM CDT Trent Ferrer M.D. LAB BLOOD ADD-ON Performing Organization Address City/[facility] Phon e Number [facility]IES - [address] [place] [address] [facility] (ABNORMAL) APTT Mix 1:1 (03/30/2019 6:20 AM CDT) P athologist Signature APTT Mix 1:1 42 (H) 26 - 36 03/30/2019 [facility] sec 9:49 AM CDT [facility] Comment: ----ADDITIONAL INFORMATION---- This test has been modified from the kyle yangacturer's instructions. Its performance characteri stics were determined by [facility] in a manner co nsistent with CLIA requirements. This test has not bee n cleared or approved by the U.S. Food and Drug Admin istration. Specimen Anatomical Collection Method Collection Time Receive d Time (Source) Location / / Volume Laterality Blood 03/30/2019 6:20 AM 9 7:17 CDT AM CDT Trent Ferrer M.D. LAB BLOOD ADD-ON Performing Organization Address [facility] Phon e Number [facility]IES - [address] [place] [address] [facility] Heparin Anti-Xa Assay (03/30/2019 6:20 AM CDT) athologist Signature Heparin 0.38 IU/mL 03/30/2019 [facility] Anti-Xa, P 7:12 AM CDT [facility] Comment: UFH therapeutic range: [...] BLOOD NON ADD-ON Performing Organization Address City/[facility]/ZIP Code Phon e Number [facility] - [address] [place] [address] [facility] Beta-2 Glycoprotein 1 Antibodies, IgG and IgM (03/30/2019 6:20 AM CDT) P athologist Signature Beta 2 GP1 Ab <9.4 <15.0 03/30/2019 [facility] IgG, S (Negative) 7:[address] U/mL [facility] Beta 2 GP1 Ab <9.4 <15.0 03/30/2019 [facility] IgM, S (Negative) 7:[address] U/mL [facility] Specimen Anatomical Collection Method Collection Time Receive d Time (Source) Location / / Volume Laterality Blood (Blood, 03/30/2019 6:20 AM 03/30/20 19 9:55 Venous) CDT AM CDT Trent Ferrer M.D. LAB BLOOD ADD-ON Performing Organization Address City/State/ZIP Code Phon e Number [facility] [address] [place] [address] [facility] Phospholipid (Cardiolipin) Antibodies, IgG and IgM (03/30/2019 6:20 AM CDT) P athologist Signature Phospholipid Ab <9.4 <15.0 03/30/2019 [facility] IgM, S (Negative) 3:[address] [facility] Phospholipid Ab <9.4 <15.0 03/30/2019 [facility] IgG, S (Negative) 3:[address] [facility] Specimen Anatomical Collection Method Collection Time Receive d Time (Source) Location / / Volume Laterality Blood (Blood, 03/30/2019 6:20 AM 03/30/20 19 9:55 Venous) CDT AM CDT Trent Ferrer M.D. LAB BLOOD ADD-ON Performing Organization Address City/State/ZIP Code Phon e Number [facility] [address] [place] [address] [facility] (ABNORMAL) Thrombophilia Profile (03/30/2019 6:20 AM CDT) [facility] Method Time Signature Prothrombin Time 10.9 10.3 - 03/30/2019 [facility] (PT), P 12.8 sec 9:35 AM CDT [facility] INR 1.0 03/30/2019 [facility] 9:35 AM CDT [facility] Activated 57 (H) 26 - 36 03/30/2019 [facility] Partial sec 9:46 AM CDT LABORATORIES - Thrombopl Time, [facility] DRVVT Screen 0.7 0.0 - 1.1 03/30/2019 [facility] Ratio ratio 9:35 AM CDT [facility] Thrombin Time 73 (H) 15 - 23 03/30/2019 [facility] (Bovine), P sec 9:46 AM CDT [facility] Comment: ----ADDITIONAL INFORMATION---- This test has been modified from the man ufacturer's instructions. Its performance characteri stics were determined by [facility] in a manner co nsistent with CLIA requirements. This test has not bee n cleared or approved by the U.S. Food and Drug Admin istration. Fibrinogen, P 276 200 - 430 mg/dL 03/30/2019 10:04 AM CDT [facility] Comment: ----ADDITIONAL INFORMATION---- This test has been modified from the [place] [employer]'s instructions. Its performance characteri stics were determined by [facility] in a manner co nsistent with CLIA requirements. This test has not bee n cleared or approved by the U.S. Food and Drug Admin istration. Fibrinogen 0.26 0.00 - 0.50 03/30/2019 12:44 PM [facility] INIC Equivalent Units mcg/mL U T [facility] ([facility] D-Dimer Units (DDU) 130 0 - 250 ng/mL 03/30/2019 12:44 PM [facility] D-Dimer [facility] Soluble Fibrin <8 0.0 - 7.9 mcg/mL 03/30/2019 1:19 PM [facility] Monomer T [facility] Comment: ----ADDITIONAL INFORMATION---- This test was developed and its performa nce characteristics determined by [facility] in a manner co nsistent with CLIA requirements. This test has not bee n cleared or approved by the U.S. Food and Drug Admin istration. Antithrombin Activity, 99 80 - 130 % 03/30/2019 10:05 AM [facility] P T [facility] Comment: ----ADDITIONAL INFORMATION---- This test has been modified from the [place] [employer]'s instructions. Its performance characteri stics were determined by [facility] in a manner co nsistent with CLIA requirements. This test has not bee n cleared or approved by the U.S. Food and Drug Admin istration. Protein C Activity, P 131 70 - 150 % 03/30/2019 9:33 A M T [facility] Comment: ----ADDITIONAL INFORMATION---- This test has been modified from the [place] [employer]'s instructions. Its performance characteri stics were determined by [facility] in a manner co nsistent with CLIA requirements. This test has not bee n cleared or approved by the U.S. Food and Drug Admin istration. Protein S Ag, Free, 59 (L) 65 - 160 % 03/30/2019 10:19 AM [facility] P CDT LABORATORIES - [facility] Chloe Comment: ----ADDITIONAL INFORMATION---- This test has been modified from the [employer] [employer]urer's instructions. Its performance characteri stics were determined by [facility] in a manner co nsistent with CLIA requirements. This test has not bee n cleared or approved by the U.S. Food and Drug Admin istration. APCRV Ratio 3.0 >or=2.3 03/30/2019 10:11 [facility] AM CDT [facility]ATORIES [facility] Prothrombin [id number] Negative Negative 04/02/2019 5:19 [facility] Mutation, B CDT [facility] PTNT Reviewed By Lewis Moreno, 04/02/2019 5:19 [facility] MBBS CDT [facility] PTNT Interpretation This individual DOES NOT hav e the Prothrombin H15700I mutation. Although the 04/02/2019 5:19 [facility] Prothrombin G24132C mutation is absent, the chloe kang may have other genetic CDT LABORATORIES - and environmental risk factors for thrombosis. Alanna rosa genetic consultation [facility] and counseling of potentially affected family members [facility] testing. Comment: ----ADDITIONAL INFORMATION---- This test is a direct mutation analysis using PCR amplification, signal generation and release by cleavage of se quence specific alleles ([employer], [employer], [place], [place]). This test has been modified from the [place] [employer]'s instructions. Its performance characteristics were determi jayesh by [facility] in a manner consistent with CLIA requirements. This test has not been cleared or approved by the U.S. Food and Drug Administration . Reviewed by: Milad Emerson M.D. 04/03/2019 1:35 PM [facility] CDT [facility] Interpretation ?Type of Study: ?? Thrombophilia Profile 04/03/2019 1:35 PM [facility] ?IMPRESSION: ??1) Decreased protein S free antigen, a cquired versus CDT LABORATORIES - congenital. ??See comments and suggest clinical correlation. [facility] ?2) Data are consistent with [...] patient does n ot have the prothrombin [id number] mutation. ?Separately performed and reported testing for beta-2 glycoprotein I and anticardiolipin antibodies (IgG and IgM isotypes) demonstrat ed normal results, providing no evidence of antiphospholipid antibodie s by these methodologies. Specimen Anatomical Collection Method Collection Time Receive d Time (Source) Location / / Volume Laterality Blood (Blood, 03/30/2019 6:20 AM 03/30/20 19 8:13 Venous) CDT AM CDT Narrative [facility] - 04/03/2019 1:37 PM CDT Specimen Information: Specimen ID: [id number] Specimen Type: Blood Specimen Collection Start Date: [birth year] 9 ??6:20 AM Specimen Received Date: 03/30/2019 ??8:13 AM Specimen ID: [id number] Specimen Type: Blood Specimen Collection Start Date: ??6:20 AM Specimen Received Date: 03/30/2019 ??7:17 AM Specimen ID: [id number] Specimen Type: Blood Specimen Collection Start Date: ??6:20 AM Specimen Received Date: 03/30/2019 ??7:17 AM Specimen ID: [id number] Specimen Type: Blood Specimen Collection Start Date: ??6:20 AM Specimen Received Date: 03/30/2019 ??7:17 AM Specimen ID: [id number] Specimen Type: Blood Specimen Collection Start Date: ??6:20 AM Specimen Received Date: 03/30/2019 ??7:17 AM Specimen ID: [id number] Specimen Type: Blood Specimen Collection Start Date: ??6:20 AM Specimen Received Date: 03/30/2019 ??7:17 AM Trent Ferrer M.D. LAB BLOOD NON ADD-ON Performing Organization Address City/State/ZIP Code Phon e Number [address] [place] [address] Heparin Anti-Xa Assay (03/29/2019 11:28 PM CDT) P athologist Signature Heparin 0.31 IU/mL 03/30/2019 [facility] Anti-Xa, P 12:05 AM CDT [facility] Comment: UFH therapeutic range: ?? 0.30-0.70 IU/mL [...] BLOOD NON ADD-ON Performing Organization Address City/[facility] Phon e Number [facility] LABORATORIES - [address] [phone] [facility] Hemoglobin A1c (03/29/2019 6:05 PM CDT) Analysis Performed At [facility] logist Time Signature Hemoglobin A1c, 5.6 4.0 - 5.6 03/29/2019 [facility] B % 6:50 PM CDT [facility] Specimen Anatomical Collection Method Collection Time Receive d Time (Source) Location / / Volume Laterality Blood (Blood, 03/29/2019 6:05 PM 03/29/20 19 6:28 Venous) CDT PM CDT Trent Ferrer M.D. LAB BLOOD ADD-ON Performing Organization Address City/[facility] Phon e Number [facility] LABORATORIES - [address] [phone] [facility] (ABNORMAL) Lipid Panel (03/29/2019 6:05 PM CDT) [facility] Method Time Signature Cholesterol, 204 (H) mg/dL 03/29/2019 [facility] Total 7:09 PM CDT [facility] Comment: ----REFERENCE VALUE---- Desirable: < 200 Borderline high: 200 - 239 High: > or = 240 Triglycerides 104 mg/dL 03/29/2019 7:09 PM CDT [facility] Comment: ----REFERENCE VALUE---- Normal: <150 Borderline high: 150-199 High: 200-499 Very high: > or =500 Cholesterol, HDL, S 91 >=50 mg/dL 03/29/2019 7:09 PM CDT [facility] Calculated LDL 92 mg/dL 03/29/2019 7:09 PM CDT [facility] Comment: ----REFERENCE VALUE---- Desirable: <100 Above Desirable: 100-129 Borderline high: 130-159 High: 160-189 Very high: > or =190 Cholesterol, Non-HDL, 113 mg/dL 03/29/2019 7:0 9 PM CDT [facility] LABORATORIES Calculated - [facility] Comment: ----REFERENCE VALUE---- Desirable: <130 Above Desirable: 130-159 Borderline high: 160-189 High: 190-219 Very high: > or =220 Specimen Anatomical Collection Method Collection Time Receive d Time (Source) Location / / Volume Laterality Blood (Blood, 03/29/2019 6:05 PM 03/29/20 19 6:28 Venous) CDT PM CDT Trent Ferrer M.D. LAB BLOOD ADD-ON Performing Organization Address City/[facility]/ZIP [facility] Phon e Number [facility] - [address] S-TSH (Thyroid-Stimulating Hormone - Sensitive) (03/29/2019 6:05 PM CDT) athologist Signature TSH, Sensitive 1.6 0.3 - 4.2 03/29/2019 [facility] mIU/L 7:09 PM CDT [facility] Specimen Anatomical Collection Method Collection Time Receive d Time (Source) Location / / Volume Laterality Blood (Blood, 03/29/2019 6:05 PM 03/29/20 19 6:28 Venous) CDT PM CDT Trent Ferrer M.D. LAB BLOOD ADD-ON Performing Organization Address City/[facility]/ZIP Code Phon e Number [facility] LABORATORIES - [address] APTT (Activated Partial Thromboplastin Time) (03/29/2019 4:46 PM CDT) athologist Signature Activated 29 25 - 37 03/29/2019 [facility] Partial sec 5:01 PM CDT LABORATORIES - [facility] Specimen Anatomical Collection Method Collection Time Receive d Time (Source) Location / / Volume Laterality Blood (Blood, 03/29/2019 4:46 PM 03/29/20 19 4:52 Venous) CDT PM CDT Trent Ferrer M.D. LAB BLOOD ADD-ON Performing Organization Address City/[facility]/ZIP Code Phon e Number [facility] LABORATORIES - [address] [address] [facility] CT Head Neck Angiogram with IV Contrast [...] gs discussed at 2:03 p.m with pager [phone] Narrative 03/29/2019 4:34 PM CDT EXAM: CT [...] gs discussed at 2:03 p.m with pager [phone] Eliseo Mejias M.D. IMG CT PROCEDURES CT [...] gs discussed at 2:03 p.m with pager [phone] Narrative 03/29/2019 4:34 PM CDT EXAM: CT [...] gs discussed at 2:03 p.m with pager [phone] Eliseo Mejias M.D. IMG CT PROCEDURES (ABNORMAL) CBC with Differential, Blood (03/29/2019 2:04 PM CDT) [employer] gist Method Time Signature Hemoglobin 12.4 11.6 - 03/29/2019 [facility] 15.0 g/dL 2:11 PM CDT [facility] Hematocrit 37.0 35.5 - 03/29/2019 [facility] 44.9 % 2:11 PM CDT [facility] Erythrocytes 3.79 (L) 3.92 - 03/29/2019 [facility] 5.13 2:11 PM CDT LABORATORIES - x10(12)/L [facility] MCV 97.6 78.2 - 03/29/2019 [facility] 97.9 fL 2:11 PM CDT [facility] RBC Distrib 13.3 12.2 - 03/29/2019 [facility] Width 16.1 % 2:11 PM CDT [facility] Platelet Count 238 157 - 371 03/29/2019 [facility] x10(9)/L 2:11 PM CDT [facility] Leukocytes 4.7 3.4 - 9.6 03/29/2019 [facility] x10(9)/L 2:11 PM CDT [facility] Neutrophils 2.33 1.56 - 03/29/2019 [facility] 6.45 2:11 PM CDT LABORATORIES - x10(9)/L [facility] Lymphocytes 1.74 0.95 - 03/29/2019 [facility] 3.07 2:11 PM CDT LABORATORIES - x10(9)/L [facility] Monocytes 0.32 0.26 - 03/29/2019 [facility] 0.81 2:11 PM CDT LABORATORIES - x10(9)/L [facility] Eosinophils 0.22 0.03 - 03/29/2019 [facility] 0.48 2:11 PM CDT LABORATORIES - x10(9)/L [facility] Basophils 0.04 0.01 - 03/29/2019 [facility] 0.08 2:11 PM CDT LABORATORIES - x10(9)/L [facility] Specimen Anatomical Collection Method Collection Time Receive d Time (Source) Location / / Volume Laterality Blood (Blood, 03/29/2019 2:04 PM 03/29/20 19 2:08 Venous) CDT PM CDT Eliseo Mejias M.D. LAB BLOOD ADD-ON Performing Organization Address City/State/ZIP Code Phon e Number [facility] LABORATORIES - [address] [place], [place] [address] [facility] Basic Metabolic Panel (03/29/2019 2:04 PM CDT) Analysis Performed At Patho logist Time Signature Potassium, P 4.0 3.6 - 5.2 03/29/2019 [facility] mmol/L 2:24 PM CDT [facility]ATORIES [facility] Sodium, P 142 135 - 145 03/29/2019 [facility] mmol/L 2:24 PM CDT [facility] Chloride, P 107 98 - 107 03/29/2019 [facility] mmol/L 2:24 PM CDT [facility] Bicarbonate, P 24 22 - 29 03/29/2019 [facility] mmol/L 2:24 PM CDT [facility] Anion Gap, P 11 7 - 15 03/29/2019 [facility] 2:24 PM T [facility] BUN (Blood Urea 17 6 - 21 03/29/2019 [facility] Nitrogen), P mg/dL 2:24 PM T [facility] Creatinine 0.81 0.59 - 03/29/2019 [facility] 1.04 mg/dL 2:24 PM T [facility] eGFR-Black/Afri >90 >=60 03/29/2019 [facility] can Moroccan mL/min/BSA 2:24 PM T [facility] Comment: ----ADDITIONAL INFORMATION---- Estimated GFR calculated using the 2009 CKD_EPI creatinine equation. eGFR Non-Black/ 82 >=60 mL/min/BSA 03/29/2019 2:24 PM [facility] Moroccan T [facility] Comment: ----ADDITIONAL INFORMATION---- Estimated GFR calculated using the 2009 CKD_EPI creatinine equation. Calcium, Total, P 8.7 8.6 - 10.0 mg/dL 03/29/2019 2:24 PM [facility] CDT [facility] Glucose, P 101 70 - 140 mg/dL 03/29/2019 2:24 PM [facility] Specimen Anatomical Collection Method Collection Time Receive d Time (Source) Location / / Volume Laterality Blood (Blood, 03/29/2019 2:04 PM 03/29/20 2:08 Venous) CDT PM CDT Eliseo Mejias M.D. LAB BLOOD ADD-ON Performing Organization Address City/State/ZIP Code Phon e Number [facility] LABORATORIES - [address] [place], [place] [address] [facility] documented in this encounter Visit Diagnoses Diagnosis [...] mg (LIPITOR) 2108 (Given - Provider: Marlene Iriwn R.N.) 40 mg, oral, Daily at bedtime, First dose on Tue03/30/19 at 2100 biotin capsule 5 mg (MERIBIN) 13 39 (Given - Provider: Sofie Sutton R.N.) 5 mg, oral, Daily, First dose (after last reorder) on Tue03/31/19 at 0900 biotin tablet 5 mg (CANCELED) 1322 (Give n - Provider: Julieth Whitt R.N.) 5 mg, oral, Daily, First dose on Tue03/30/19 at 0900 cholecalciferol capsule 10,000 Units (VITAMIN D3) 0859 (Given - Provider: Sharifa MoyerNBritton) 0854 (Given - Provider: Christiano Gan) 10,000 [...] (RESTASIS) 210 (Given - Provider: Marlene Irwin RBrittonN.) 0855 (Given - Provider: Christiano Gan) 1 drop, both eyes, 2 times daily, First dose (after last modification) on Tue03/30/19 at 2100 enoxaparin injection 70 mg (LOVENOX) 210 9 (Given - Provider: Marlene Irwin, R.N.) 0900 (Given - Provider: Christiano Gan .N.) 70 mg, subcutaneous, 2 times daily, Firs t dose on Tue03/30/19 at 2100, Please do teaching as planning to discharge on enoxaparin bridge to warfarin FLUoxetine capsule 60 mg (PROzac) 0858 ( Given - Provider: Julieth Velasquez, R.N.) 0855 (Given - Provider: Christiano Gan .NBritton) 60 mg, oral, Daily, First dose on [...] 1655 (Given - Pr ovider: Marlene Irwin RBetsy) 0855 (Given - Provider: Sofie Sutton R.N.) 40 mg, oral, 2 times daily, First dose ( after last modification) on Tue03/30/19 at 1700 ipratropium-albuterol 0.5-2.5 mg/3 mL ne bulizer solution 3 mL (DUO-NEB) (CANCELED) 2019 (Not Given - Provider: Makenzie collado R.N. - Reason: Patient/family refused) 09 (Given - Provider: Julieth Whitt RBrittonNBritton) 3 [...] 0906 (Not Given - Provider: Julieth Whitt RBetsy - Reason: Patient/family refused - Comment: per [...] (LYRICA) 1705 (Given - Provider: Marlene Irwin RBrittonNBritton) 450 mg, oral, Every evening, First dose on Tue03/30/19 at 1800 prochlorperazine injection 10 mg (COMPAZINE) (COMPLETE D) 1402 (Given - Provider: Isaura Nielsen RBrittonNBritton) 10 mg, intravenous, Once, On Clementine 03/29/19 at 1353, For 1 dose sodium chloride (PF) 0.9 % injection 1-100 mL (COMPLET ED) 1527 (Given - Provider: Princess Atkins R.NBritton) 1-100 mL, intravenous, Once, On Clementine at [...] 0857 (Not Given - Provider: Julieth Whitt RBrittonNBritton - Reason: Patient/family refused) 0900 (Given - [...] Childs R.N.) 0859 (Given - Provider: Julieth Velasquez, R.N.)210 (Given - Provider: Marlene Irwin RRebekah.) 0854 (Given - Provider: Christiano Gan) 300 [...] 2 times daily PRN, cons tipation, Starting Clementine 03/29/19 at 1735, If no bowel movement within 24 hours of starting bisacodyl fentaNYL injection (SUBLIMAZE) (COMPLETED) 1532 (Given - Provider: Christiano Vaz.German.)1534 (Given - Provider: Christiano Vaz.N.)1538 (Given - [...] (LMX) 1 application, topical, 4 times daily DE N, mild pain or score 1-3 of 10, Starting Clementine 03/29/19 at 1730 lidocaine 5 % ointment 1 application (XYLOCAINE) 1517 (Given - Provider: Sharifa VazN.) 1 application, mouth/throat, As needed, mild pain [...] - Provider: Christiano Vaz.N.)1534 (Given - Provider: Ana Rosa Gordon R.N.)1537 (Given - Provider: Ana Rosa A Haman, R.N.)1540 (Given - Provider: Ana Rosa Gordon R.N.)1554 [...] contact. oxyCODONE IR tablet 5 mg (ROXICODONE) 3655 (Given - Pr ovider: Makenzie Childs RRebekah.) 0610 (Given - Provider: Christiano Mcdonough.)1315 (Given - Provider: Julieth B Eric-Brown, R.N.)2133 (Given - Provider: Marlene Irwin RBrittonN.) 0334 (Given - Provider: Makenzie Childs RBrittonNBritton)1236 (Given - Provider: Jerica Keller R.NBritton) 5 [...] 1728 (Given - Pro vider: Steven Carrillo RBrittonNBritton) 3 mL, intravenous, As needed, line care, [...] Velasquez RBrittonN.)2225 (Given - Provider: Marlene Irwin RBetsy) 1236 (Given - Provider: Jerica Keller R.N.)1339 (Not Given - Provider: Sofie Sutton RBrittonNBritton - Reason: Other - Comment: See previous [...]
--- OUTSIDE RECORDS SUMMARY | 2022-09-20 14:16 | XMS_ITS | Encounter Summary ---
:1965 Author Organization [facility] Address [address] [place] [address] Care Team Providers Name Role Phone Unavailable Primary Care Provider Unavailable Encounter Details Date Type Department Care Team Description 06/28/2019 Hospital Encounter Department of Fernie Soriano Stroke ([facility]); Radiology, Jordy Alvarado M.D. Thrombosis Arterial ([facility]); Building, in [address] [place] [address] Aneurysm Cerebral Unruptured ([facility]) [place], [place] [address] [place] [id number] [place], [place] [phone] (Work) [phone] Social History Tobacco Use Types Packs/Day Years [...] you attend confucianist or Patient refused 2021 amish services? Do [...] Neuroradiology N/A Computed Tomography ARZ LOS, Neuroradiology [facility] Specimen (Source) Anatomical Collection Method [...] the ventral aspect (series 6 image s [id number]). The lumen remains significantly irregular and there [...] well seen. The RADHA, MCA, a nd DENTIST ATTENDANT branches are unremarkable in appearance. Stable postoperative [...] the ventral aspect (series 6 image s [id number]). The lumen remains significantly irregular and there [...] well seen. The RADHA, MCA, a nd DENTIST ATTENDANT branches are unremarkable in appearance. Stable postoperative [...]
--- OUTSIDE RECORDS SUMMARY | 2022-09-20 14:16 | XMS_ITS | Encounter Summary ---
:1965 Author Organization [facility] Address [address] [place] [address] Care Team Providers Name Role Phone Unavailable Primary Care Provider Unavailable Reason for Visit Reason Onset Date Comments Nicotine Dependence 04/26/2019 Encounter Details Date Type Department Care Team Description 04/26/2019 Clinical Department of Gagan Christensen Communication Nicotine Kenna D, Dependence, Jordy Alex, [facility], in [place], [place] [address] [place] [address] Social History Tobacco Use Types Packs/Day Years [...] you attend muslim or Patient refused 2021 anglican services? Do [...]
--- OUTSIDE RECORDS SUMMARY | 2022-09-20 14:17 | XMS_ITS | Encounter Summary ---
:1965 Author Organization [facility] Address [address] [place] [address] Care Team Providers Name Role Phone Unavailable [...] you attend orthodoxy or Patient refused 2021 alevism services? Do [...]
--- OUTSIDE RECORDS SUMMARY | 2022-09-20 14:17 | XMS_ITS | Encounter Summary ---
:1965 Author Organization [facility] Address [address] [place] [address] Care Team Providers Name Role Phone Unavailable [...] you attend latter-day or Patient refused 2021 temple services? Do [...] 2:55 PM MST Indications: ?CP PATHWAY CALL [phone] IF POS ORIGINAL REPORT - 24-Jul-2009 14:55:00 [...] from the original. Indications: CP PATHWAY CALL [phone] IF PO S ORIGINAL REPORT - 24-Jul-2009 [...]
--- OUTSIDE RECORDS SUMMARY | 2022-09-20 14:17 | XMS_ITS | Encounter Summary ---
:1965 Author Organization [facility] Address [address] [place] [address] Care Team Providers Name Role Phone Unavailable [...] you attend rastafarian or Patient refused 2021 bahai services? Do [...]
--- OUTSIDE RECORDS SUMMARY | 2022-09-20 14:17 | XMS_ITS | Encounter Summary ---
:1965 Author Organization [facility] Address [address] [place] [address] Care Team Providers Name Role Phone Elsewhere, Pcp Primary Care Provider Unavailable Reason for Referral Outpatient (Routine) - Closed Specialty Diagnoses / Procedures Referred By Contact Refer red To Contact Otorhinolaryngology Diagnoses Sinus Nose Disorder Sinusitis Chronic Chris Mckeon [place] M.D. [address] [place] [address] Referral ID Status Reason Start Date Expiration Date Visits Requ ested Visits Authorized [id number] Closed 01/10/2019 01/10/[address] Encounter Details Date Type Department Care Team Description 01/10/2019 [facility] Mike, Sinu s Nose Disorder (Primary Dx); AND CLINICS Chris Celaya M.D. Sinusitis Chronic [address] [facility] [address] [place] [address] [place], [place] [phone] [address] Social History Tobacco Use Types Packs/Day Years [...] you attend latter-day or Patient refused 2021 jehovah's witness services? 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
--- OUTSIDE RECORDS SUMMARY | 2022-09-20 14:17 | XMS_ITS | Encounter Summary ---
:1965 Author Organization [facility] Address [address] [place] [address] Care Team Providers Name Role Phone Unavailable [...] you attend presybeterian or Patient refused 2021 yarsani services? Do [...]
--- OUTSIDE RECORDS SUMMARY | 2022-09-20 14:17 | XMS_ITS | Encounter Summary ---
:1965 Author Organization [facility] Address [address] [place] [address] Care Team Providers Name Role Phone Unavailable Primary Care Provider Unavailable Reason for Visit Outpatient (Routine) - Closed Specialty Diagnoses / Procedures Referred By Contact Refer red To Contact Otorhinolaryngology Diagnoses Sinus Nose Disorder [facility] [address] [place] [address] Referral ID Status Reason Start Date Expiration Date Visits Requ ested Visits Authorized [id number] Closed 01/10/2019 01/10/2020 1 1 Encounter Details Date Type Department Care Team Description 03/01/2019 Comprehensive Visit Department of [place], Sinusit is Chronic (Primary Dx); Otorhinolaryngology in [place], [facility] [address] [place] [address] [place] [address] Social History Tobacco Use Types Packs/Day Years [...] nasal surgery including sinus surgery X2 in [place] and X2 at [place] per patient; 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 Decongestion: no improvement with decongestion. Modified Caitlyn: not performed. Rigid exam with a 30 [...] obtained. - Obtained outside operative reports from [place] - Discussed risks and benefits including but [...]
--- OUTSIDE RECORDS SUMMARY | 2022-09-20 14:17 | XMS_ITS | Encounter Summary ---
:1965 Author Organization [facility] Address [address] [place] [address] Care Team Providers Name Role Phone Unavailable [...] you attend samaritan or Patient refused 2021 anglican services? Do [...] Pelvis with IV Contrast (09/02/2007 1:17 AM [facility]) Anatomical Region Laterality Modality Pelvis, Abdominal RST LOS N/A Computed Tomog chato Specimen (Source) Anatomical Collection Method Collection Time Re ceived Time Location / / Volume Laterality 09/02/2007 1:17 AM [facility] Addenda Addendum by Elmo Cabrera M.D. on 03/2007 11:40 PM [facility] APPENDED REPORT - 02-Sep-2007 01 :40:00 CT Abdomen w/ Contrast CT Pelvis W Contrast Appended to link all pertinent exams to report. ? Electronically signed by: ?? Mamta Cabrera M.D. 02-Sep-2007 01:40 Narrative 09/02/2007 1:40 AM [facility] Indications: ?R/O ABCESS, POSTOP ORIGINAL [...] Abdomen with IV Contrast (09/02/2007 1:17 AM [facility]) Anatomical Region Laterality Modality Abdomen, Abdominal RST LOS N/A Computed Tacos graphy Specimen (Source) Anatomical Collection Method Collection Time Re ceived Time Location / / Volume Laterality 09/02/2007 1:17 AM [facility] Addenda Addendum by Elmo Cabrera M.D. on 03/2007 11:40 PM [facility] APPENDED REPORT - 02-Sep-2007 01 :40:00 CT Abdomen w/ Contrast CT Pelvis W Contrast Appended to link all pertinent exams to report. ? Electronically signed by: ?? Mamta Cabrera M.D. 02-Sep-2007 01:40 Narrative 09/02/2007 1:40 AM [facility] Indications: ?R/O ABCESS, POSTOP ORIGINAL [...] be different from the original. Indications: R/O SONAL POSTOP ORIGINAL REPORT - 02-Sep-2007 01:39:00 CT [...]
--- OUTSIDE RECORDS SUMMARY | 2022-09-20 14:17 | XMS_ITS | Encounter Summary ---
:1965 Author Organization [facility] Address [address] [place] [address] Care Team Providers Name Role Phone Unavailable Primary Care Provider Unavailable Reason for Visit Reason Onset Date Comments [facility] Med Request 03/30/2019 Encounter Details Date Type Department Care Team Description 03/30/2019 Clinical Communication Department of Tesfaye Ortega [facility] Med Request Nicotine Kenna Bose M.S., [place] [place] [place] [address] [place] [address] Social History Tobacco Use Types Packs/Day Years [...] you attend jainism or Patient refused 2021 oriental orthodox services? [...] CDT Please send the following to the [facility] 1) 14 mg patch [...]
--- OUTSIDE RECORDS SUMMARY | 2022-09-20 14:17 | XMS_ITS | Encounter Summary ---
:1965 Author Organization [facility] Address [address] [place] [address] Care Team Providers Name Role Phone Unavailable [...] you attend congregation or Patient refused 2021 mormon services? Do [...]
--- OUTSIDE RECORDS SUMMARY | 2022-09-20 14:17 | XMS_ITS | Encounter Summary ---
:1965 Author Organization [facility] Address [address] [place] [address] Care Team Providers Name Role Phone Unavailable [...] you attend zoroastrianism or Patient refused 2021 buddhism services? Do [...] [facility] Indications: ?PNE PATHWAY CALL [phone] IF POS - pt unable to remove [...] from the original. Indications: PNE PATHWAY CALL [phone] IF P OS - pt unable to [...]
--- OUTSIDE RECORDS SUMMARY | 2022-09-20 14:17 | XMS_ITS | Encounter Summary ---
:1965 Author Organization [facility] Address [address] [place] [address] Care Team Providers Name Role Phone Unavailable Primary Care Provider Unavailable Encounter Details Date Type Department Care Team Description 09/25/2015 Hospital Encounter HX [facility]TR Hernesto Watson M.D. [address] [place] [address], [address] [place] [address] (Wo rk) Social History Tobacco [...] you attend synagogue or Patient refused 2021 mosque services? Do [...] On: 09/25/2015 03:38 PM Source: [facility] POWERCHART Document Id: [id number] documented in this encounter Miscellaneous Notes Telephone Encounter - Conversion, Historical Provider Ser - 05/11/2017 11:32 AM CDT *Phone Message/Dr. Watson Document Contains Addenda Addendum by IVY BENITEZ on May 11, 2017 13:27:22 CDT From: IVY BENITEZ ( Rindge Boomswing Operator) To: Physical Medicine and Rehabilitation Staff; Sent: 05/11/2017 13:27:22 CDT Subject: RE: *Phone Message/Dr. Watson Left message on patients phone regarding this appointment. Addendum by NIKKIE GANDHI LPN on May 11, 2017 12:57:21 CDT From: NIKKIE GANDHI LPN ( Physical Medicine and Rehabilitation Staff) To: Rindge Boomswing Operator; Sent: 05/11/2017 12:57:21 CDT Subject: RE: *Phone Message/Dr. Watson 27 noon, please reschedule. From: IVY BENITEZ ( Rindge Boomswing Operator) To: Physical Medicine and Rehabilitation Staff; [...] come today, she would like it rescheduled jolie since Dr. Romero wanted her to have it done. Please call her back at [phone] to advise. Advice/Action: Source used: ( ) [...] back cell phone number ( ) Source: [facility] Document Id: [id number] Miscellaneous - Nikkie Gandhi L.P.N. - 05/04/2017 4:19 PM CDT *General Message Document Contains Addenda Addendum by ISIDRO HI on May 04, 2017 16:42:57 CDT From: ISIDRO HI ( [employer]indge Boomswing Operator) To: Physical Medicine and Rehabilitation Staff; Sent: 05/04/2017 16:42:57 CDT Subject: RE: *General Message Called patient and scheduled as requested. From: NIKKIE GANDHI LPN ( Physical Medicine and Rehabilitation Staff) To: [employer]ge Boomswing Operator; Sent: 05/04/2017 16:19:56 CDT Subject: *General Message Please call patient to schedule for bilateral upper extremity EMG. 05/11/17 at 11:45 am. 1 hour Source: [facility] Document Id: [id number] Electronically signed by Avinash [facility] Munitions Handler Supervisor [id number] at 06/01/2017 1:18 AM CDT documented in this encounter Plan of Treatment Not on filedocumented as of this encounter Visit Diagnoses Not on filedocumented in this encounter
--- OUTSIDE RECORDS SUMMARY | 2022-09-20 14:17 | XMS_ITS | Encounter Summary ---
:1965 Author Organization [facility] Address [address] [place] [address] Care Team Providers Name Role Phone Unavailable [...] you attend christianity or Patient refused 2021 latter-day services? Do [...]
--- OUTSIDE RECORDS SUMMARY | 2022-09-20 14:17 | XMS_ITS | Encounter Summary ---
:1965 Author Organization [facility] Address [address] [place] [address] Care Team Providers Name Role Phone Unavailable Primary Care Provider Unavailable Encounter Details Date Type Department Care Team Description 08/22/2007 - Hospital Encounter HX ARZ NO MAPPING Provider, Jadyn hough 08/25/2007 Social [...] Results [place] Esophagram (08/24/2007 10:57 AM [facility]) Anatomical Region Laterality Modality Gastro Intestinal, Abdominal RST LOS N/A Rad iographic Imaging Specimen (Source) Anatomical Collection Method Collection Time Re ceived Time Location / / Volume Laterality 08/24/2007 10:57 AM MST Narrative 08/24/2007 11:41 AM [facility] Indications: ?STATUS POST GASTRIC BYPASS ORIGINAL [...]
--- OUTSIDE RECORDS SUMMARY | 2022-09-20 14:17 | XMS_ITS | Encounter Summary ---
:1965 Author Organization [facility] Address [address] [place] [address] Care Team Providers Name Role Phone Unavailable [...]
--- OUTSIDE RECORDS SUMMARY | 2022-09-20 14:17 | XMS_ITS | Encounter Summary ---
:1965 Author Organization [facility] Address [address] [place] [address] Care Team Providers Name Role Phone Unavailable [...] you attend caodaism or Patient refused 2021 gnosticist services? Do [...]
--- OUTSIDE RECORDS SUMMARY | 2022-09-20 14:17 | XMS_ITS | Encounter Summary ---
:1965 Author Organization [facility] Address [address] [place] [address] Care Team Providers Name Role Phone Unavailable [...] you attend mormonism or Patient refused 2021 scientology services? Do [...]
--- OUTSIDE RECORDS SUMMARY | 2022-09-20 14:17 | XMS_ITS | Encounter Summary ---
:1965 Author Organization [facility] Address [address] [place] [address] Care Team Providers Name Role Phone Unavailable Primary Care Provider Unavailable Reason for Visit Reason Onset Date Comments Prior Medical Records/Sinus CT 03/02/2019 Encounter Details Date Type Department Care Team Description 03/02/2019 Clinical Department of [place], Prior Medical Communication Otorhinolaryngology in [place] rds/Sinus CT [place], [place] Lilian [address] [facility] [address] [place] [address] [place] [address] Social History Tobacco Use Types Packs/Day Years [...] you attend anabaptism or Patient refused 2021 rastafari services? Do [...] 8:13 AM CDT Per [place] (Dr. Olmedo), [facility] (Dr. Mckeon) ([phone]) was contacted. The previousmedical records have been received and sent for scanning into pt's chart. [facility] CD [facility] will be pushed. Coby documented in this encounter Plan of Treatment Not on filedocumented as of this encounter Visit Diagnoses Not on filedocumented in this encounter
--- OUTSIDE RECORDS SUMMARY | 2022-09-20 14:17 | XMS_ITS | Encounter Summary ---
:1965 Author Organization [facility] Address [address] [place] [address] Care Team Providers Name Role Phone Unavailable Primary Care Provider Unavailable Encounter Details Date Type Department Care Team Description 01/15/2010 - Hospital Encounter HX ARZ NO MAPPING Leonides Du, 01/16/2010 [place] [address] [place] [address] Social History Tobacco Use Types [...] you attend religious or Patient refused 2021 pentecostalism services? Do [...] encounter Results [place] Esophagram (01/15/2010 9:36 PM [facility]) Anatomical Region Laterality Modality Gastro Intestinal, Abdominal RST LOS N/A Rad iographic Imaging Specimen (Source) Anatomical Collection Method Collection Time Re ceived Time Location / / Volume Laterality 01/15/2010 9:36 PM [facility] Narrative 01/15/2010 9:43 PM [facility] Indications: ?STATUS POST GASTRIC [...]
--- OUTSIDE RECORDS SUMMARY | 2022-09-20 14:17 | XMS_ITS | Encounter Summary ---
:1965 Author Organization [facility] Address [address] [place] [address] Care Team Providers Name Role Phone Unavailable Primary Care Provider Unavailable Encounter Details Date Type Department Care Team Description 06/21/2017 Hospital Encounter HX [facility] PMTR Hernesto Watson M.D. [address] [place] [address], [address] [place] [address] (Wo rk) Social History Tobacco [...] you attend pentecostalism or Patient refused 2021 evangelical services? Do [...] - 06/21/2017 12:00 AM CDT 1EMG EMG ELOCUTION TEACHER Sergio Watson MD ([phone]) REFERRED BY Dr. Romero. REFERRED FOR Ms. [...] Source: [facility] MHSDOLBEYNONRADSYS Document Id: [id number] documented in this encounter Miscellaneous Notes Miscellaneous - Sergio Watson M.D. - 06/21/2017 2:19 PM CDT Ambulatory Discharge Medication List [address] [id number] Visit Information Name: KAYLIN BENDER [facility] Number: [id number] Current Date: 06/21/2017 14:19:38 [...] Source: [facility] POWERCHART Document Id: [id number] Miscellaneous - Sergio Watson M.D. - 06/21/2017 2:19 PM CDT Ambulatory Patient Summary [address] [id number] Visit Information Name: KAYLIN BENDER [facility] Number: [id number] Current Date: 06/21/2017 14:19:38 [...] if you dont have one. Go to [email or web address] and click on Create Your Account. Then, follow the directions to complete the online form. Youll be asked for your [facility] number which you can find at the top of this document. Your Goals/Additional instructions: Source: [facility] POWERCHART Document Id: [id number] Miscellaneous - Ayla Mcmanus LBrittonP.N. - 06/21/2017 1:25 PM CDT Adult Linseed Oil Order Filler Intake/History Adult Linseed Oil Order Filler Intake/History Entered On: 06/21/2017 13:26 CDT Performed On: 06/21/2017 13:25 CDT by AYLA MCMANUS [facility] DIRECTOR Intake Systolic Blood Pressure : 124 mmHg Diastolic Blood Pressure : 62 mmHg NIBP Mean : 83 mmHg BP Location : Left upper extremity Blood Pressure Cuff Size : Regular Actual Weight : 70.55 kg(Converted to: 155 lb 9 oz) Dosing Weight Clinic : 70.55 kg AYLA MCMANUS LPN - 06/21/2017 13:25 CDT General Info Information Given By : Patient Languages : Central African Is Patient Female and 13-50 no hysterectomy [...] Source: [facility] POWERCHART Document Id: [id number] documented in this encounter Plan of Treatment Not on filedocumented as of this encounter Visit Diagnoses Not on filedocumented in this encounter
--- OUTSIDE RECORDS SUMMARY | 2022-09-20 14:17 | XMS_ITS | Encounter Summary ---
:1965 Author Organization [facility] [place] [facility] Address [address] [place] [address] Care Team Providers Name Role Phone Unavailable Primary Care Provider Unavailable Encounter Details Date Type Department Care Team Description 02/03/2009 - Hospital Encounter HX ARZ NO MAPPING Provider, Jadyn hough 02/04/2009 Social [...] you attend sikh or Patient refused 2021 roman catholic services? [...] 9:46 PM MST Indications: ?CP PATHWAY CALL [phone] IF POS ?? tech: pt. not and [...] from the original. Indications: CP PATHWAY CALL [phone] IF PO S tech: pt. not and [...] signed by: Jonny Reyes 03-Feb-2009 21:46 He P Wood M.D. IMG DIAGNOSTIC IMAGING PROCE DURES ECG 12 Lead with rhythm strip (02/03/2009 12:00 AM [facility]) Specimen (Source) Anatomical Location Collection Method / Collectio n Time Received Time / Laterality Volume 02/03/2009 Historical Provider ECG ORDERABLES Performing Organization Address City/State/ZIP Code Phon e Number HX [place] CONVERSION documented in this encounter Visit Diagnoses Not on filedocumented in this encounter
--- OUTSIDE RECORDS SUMMARY | 2022-09-20 14:17 | XMS_ITS | Encounter Summary ---
:1965 Author Organization [facility] Address [address] [place] [address] Care Team Providers Name Role Phone Unavailable [...] you attend bahai or Patient refused 2021 orthodoxy services? Do [...] Address City/State/ZIP Code Phon e Number HX [place] CONVERSION documented in this encounter Visit Diagnoses Not on filedocumented in this encounter
--- OUTSIDE RECORDS SUMMARY | 2022-09-20 14:17 | XMS_ITS | Encounter Summary ---
:1965 Author Organization [facility] Address [address] [place] [address] Care Team Providers Name Role Phone Unavailable [...] you attend sabianism or Patient refused 2021 methodist services? Do [...] 4:56 PM MST Narrative 07/06/2008 5:07 PM [facility] Indications: ?PNE PATHWAY CALL [phone] IF POS. ??TECHNOTE: NIPPLE PIERCINGS LUNG ARTIFACT. [...] from the original. Indications: PNE PATHWAY CALL [phone] IF P OS. TECHNOTE: NIPPLE PIERCINGS LUNG [...]
--- OUTSIDE RECORDS SUMMARY | 2022-09-20 14:17 | XMS_ITS | Encounter Summary ---
:1965 Author Organization [facility] Address [address] [place] [address] Care Team Providers Name Role Phone Unavailable [...] you attend buddhist or Patient refused 2021 latter-day services? Do [...] 2:53 PM MST Narrative 08/16/2008 3:27 PM [facility] Indications: ?CHEST PAIN tech: Pt stated nipple [...] Lead with rhythm strip (08/16/2008 12:00 AM [facility]) Specimen (Source) Anatomical Location Collection Method / Collectio n Time Received Time / Laterality Volume 08/16/2008 Historical Provider ECG ORDERABLES Performing Organization Address City/State/ZIP Code Phon e Number HX [place] CONVERSION documented in this encounter Visit Diagnoses Not on filedocumented in this encounter
--- OUTSIDE RECORDS SUMMARY | 2022-09-20 14:18 | XMS_ITS | Continuity of Care Document ---
:1965 Author Organization [facility] Address [address] [place] [address] Phone Care Team Providers Name Role Phone [...] rs Description For Visit Copied on Encounter [facility] [place] Referring [facility] Care Information -2007 Su. Provider : Arthur [address] [place], [address], [address] [facility], [place], [place], [place], [id number], [place], [id number], . [address]. tel:[phone] tel:[phone] tel:[phone] [facility] Sun Blurred No Adalberto Referring [facility] Information -2007 Deep. Provider: Arthur, (chief [address]) [address] [facility], [address], [address], [place], [place], [place], [place], [place], [place], [id number], [place], [id number], . [address]. tel:[phone] tel:[phone] tel:[phone] Family History Family Member Type Diagnosis Age [...]
--- OUTSIDE RECORDS SUMMARY | 2022-09-20 14:18 | XMS_ITS | Continuity of Care Document ---
:1965 Author Organization [facility] Address [address] [place] [address] Phone Care Team Providers Name Role Phone [...] Description For Visit Copied on Encounter [facility] No Information Nov- ZProvider Arthritis [place] [address] [place] 4 . . Rheumatolo gy, [address] [facility], [place], [place], [id number], [place] tel:[phone] [facility] TOBACCO USE Apr-1 Michele Arthritis DISORDEROBESITY [address] [place]. And NOSOSTEOPOROSIS NOS [address], gy, [address], [address], [place], [id number], [place], [place]. [id number], tel:[phone] tel:[phone] [facility] Age-related Apr-0 ZProvider Arthritis [place] osteoporosis w/o 7[address] Conversion [place] current 4 . . Rheumatolo pathological gy, [address] [place] [address], [id number], [place] tel:[phone] [facility] OBESITY NOSTOBACCO Mar-2 ZProvider Arthritis USE [address] And DISORDEROSTEOPOROSI 4 . . Rheumatolo S NOSMALAISE AND gy, [address], [place], [place], [id number], [place] tel:[phone] [place] NEPTALI [place] Tobacco useObesity, Mar-2 Michele Arthritis unspecifiedAge-rela Nara. And mary osteoporosis 4 [address] w/o [address], gy, [address], [address] [place], [address], [place], [place], [id number], [place], [place]. [id number], tel:[phone] tel:[phone] Family History Family Member Type Diagnosis Age [...]
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
--- OUTSIDE RECORDS SUMMARY | 2022-09-20 14:18 | XMS_ITS | Continuity of Care Document ---
:1965 Author Organization [facility] Address [address] [address] [place] [address] Phone Care Team Providers Name Role Phone Nilay Perry MD Unavailable Unavailable Advance Directives Directive Yes / No Effective Date File Name No Information Encounters Encounter Practice Location Reason(s) Diagnoses Date Provider Provide rs Description For Visit Copied on Encounter [facility] No Orlando FAULKNER Referring [facility]est[facility] Nilay. Provider: Health [place], Endoscopy [address] [facility] [address], Fredis DILLON MD, [address] [facility] [address], [place], [place], [facility] [address], [id number], [place], [place], [facility] [id number], [place], [address]. tel:[phone] . tel:[phone] tel:[phone] Family History Family Member Type Diagnosis Age At Onset No Information Payers Payer name Insurance type Covered alliance party ID Authorization(s ) [place] Medical Assistance [id number] Social History Type Description Quantity Date Captured [...]
--- OUTSIDE RECORDS SUMMARY | 2022-09-20 14:19 | XMS_ITS | Continuity of Care Document ---
:1965 Author Organization [facility] Address [address] [place] [address] Care Team Providers Name Role Phone [facility] Unavailable Unavailable Procedures Procedure Date [...] Visit Copied on Encounter [facility] Provider: Surgery Surgery Surgery [facility]. David, [address], [place], [place], [place] [id number], [place], [place], , [place] [id number], [id number]. [place]. tel: tel: [phone] [facility] No Twin Referring [address] Provider: Surgery Surgery Surgery [facility]. David, [address], [place], [place], [place] [id number], [place], [place], , [place] [id number], [id number]. [place]. tel: [phone] [facility] No Twin [address] Provider: Surgery Surgery Surgery [facility]. Jose [address] [facility] [address], [facility], [place], [place] , [place], [id number], [place], [address]. [place] [id number], tel: [phone] tel:[phone] Family History Family Member Type Diagnosis Age At Onset No Information Payers Payer name Insurance type Covered green party ID Authorization(s ) Medicare [id number] Medica [facility] [id number] Social History Type Description Quantity Date Captured [...]
--- OUTSIDE RECORDS SUMMARY | 2022-09-20 14:19 | XMS_ITS | Continuity of Care Document ---
:1965 Author Organization [facility] Address [address] [place] [address] Care Team Providers Name Role Phone Mor Singleton CRNA Unavailable Unavailable Procedures Procedure Date ANESTH, HEAD/NECK/PTRUNK ANESTH PERC IMG TX SP PROC ANESTH PERC IMG TX SP PROC Advance Directives Directive Yes / No Effective Date File Name No Information Encounters Encounter Practice Location Reason(s) Diagnoses Date Provider Provide rs Description For Visit Copied on Encounter [facility] No Areli Referring [facility] Mor. Provider: Lois CISNEROS Surgery [address] [place] [address], [facility] [address] [place] [id number], [facility], [place], [place], [place], [place], [id number], [id number] [place]. . tel:[phone] tel:[phone] [facility] No [facility] Referring Anesthesia [facility] -[facility] Nilay. Provider: Lois CISNEROS Surgery [address] [facility], [facility] [place], [address] [id number], [id number], [facility]. [facility] tel:[phone], [place], [phone] . tel:[phone] [facility] No [facility] Referring Anesthesia [facility] -2019 Nilay. Provider: PA, [address] [facility] [address], [place], Endy J, [place], [place], [place], [address] [facility] [id number], [id number], John, [facility]. Denisa tel:[phone] s, [place], [phone] . tel:[phone] Family History Family Member Type Diagnosis Age At Onset No Information Payers Payer name Insurance type Covered alliance party ID Authorization(s ) Medicare MB [id number] Medica [facility] [id number] Social History Type Description Quantity Date Captured [...]
--- OUTSIDE RECORDS SUMMARY | 2022-09-20 14:20 | XMS_ITS | Continuity of Care Document ---
:1965 Author Organization [facility] Address [address] [place] [address] Phone Care Team Providers Name Role Phone [...] elctr each OFFICE/OUTPATIENT VISIT, EST SCS [employer] Bangs [employer] OFFICE/OUTPATIENT VISIT, EST OFFICE/OUTPATIENT VISIT, EST [...] rs Description For Visit Copied on Encounter [facility] No Information Jul- [facility] 0 Peter. Pain Caterina 2 [address] [facility], John, [address] [place], is, [place], [place], [id number] [place], , [place]. [id number] tel: , [place] [id number] tel: [phone] OFFICE/OUTPAT [facility] Back Pain Pain in left Sep-2 Mario Referring IENT VISIT, [facility] (chief shoulderPain in [place]. Provider: EST Pain [place] complaint) left hipPain in 2 [address] [facility], right hipPain in Endy Lopez, [address] left kneePain in [place] [address] John, right kneeOther is, [place], [place], Caterina, spondylosis, [id number] [place], cervical , [place]. s, [place], [id number] regionOther tel: [phone] , [place] spondylosis, [id number] . tel: lumbar tel:2 [phone] regionRadiculopath 8412 345 y, lumbar regionPain in thoracic spineFibromyalgiaP ostlaminectomy syndrome, not elsewhere classifiedAnxiety disorder, unspecifiedOsteoar thritisChronic migraine without aura, intractable, without status migrainosusLong term (current) use of opiate analgesicEncounter for therapeutic drug level monitoring [facility] No Information Mario Refer [facility]. Provider: Pain Caterina 2 [address] [facility], John, Will J, [address] [place] [address] [place], is, [place], John, [place], [id number] [place], , [place]. s, [place], [id number] tel: [phone] , [place] [id number] . tel: tel: [phone] OFFICE VISIT, [facility] Back Pain Anxiety disorder, Ka [facility] (chief unspecifiedChronic [facility]. TELEMEDICINE Pain [place] complaint) migraine without 2 [address] Clinic, aura, intractable, John, [address] without status [place], migrainosusOsteoar is, [place], Caterina, thritisPain in [id number] [place], left shoulderPain , [place]. [id number] in left hipPain in tel: , US right hipPain in [id number] tel: left kneePain in [id number] right kneeOther spondylosis, cervical regionOther spondylosis, lumbar regionRadiculopath y, lumbar regionPain in thoracic spineFibromyalgiaP ostlaminectomy syndrome, not elsewhere classifiedLong term (current) use of opiate analgesic OFFICE VISIT, [facility] Back Pain OsteoarthritisChro K shlomo Referring [facility] (chief saul migraine [facility]. Provide r: TELEMEDICINE Pain [place] complaint) without aura, 2 [address] [facility], intractable, John, Will J, [address] without status [place] [address] John, migrainosusAnxiety is, [place], John, [place], disorder, [id number] [place], unspecifiedPain in , [place]. s, [place] , [id number] left shoulderPain tel: [phone] , [place] in left hipPain in 93635469 . tel: right hipPain in tel: [phone] left kneePain in 631233 5 right kneeOther spondylosis, cervical regionOther spondylosis, lumbar regionRadiculopath y, lumbar regionPain in thoracic spinePostlaminecto my syndrome, not elsewhere classifiedFibromya lgiaLong term (current) use of opiate analgesic OFFICE VISIT, [facility] Back Pain Pain in left [facility] (chief shoulderAnxiety [place]. TELEMEDICINE Pain Bangs complaint) disorder, [address] Clinic, unspecifiedChronic John, [address] migraine without [place], aura, intractable, is, [place], [place], without status [id number] [place], migrainosusOsteoar , [place]. [id number] thritisPain in tel:+ , [place] right hipPain in 79449726 tel: left hipPain in 13497165 left kneePain in right kneeOther spondylosis, cervical regionOther spondylosis, lumbar regionRadiculopath y, lumbar regionPain in thoracic spinePostlaminecto my syndrome, not elsewhere classifiedFibromya lgiaLong term (current) use of opiate analgesic OFFICE VISIT, [facility] Back Pain Pain in left March- [facility] (chief hipAnxiety [place]. TELEMEDICINE Pain Caterina complaint) disorder, 2 [address] Clinic, unspecifiedChronic John, [address] migraine without [place], aura, intractable, is, [place], [place], without status [id number] [place], migrainosusOsteoar , [place]. 084857333 thritisPain in tel:+ , [place] left shoulderPain [id number] tel:+ in right hipPain 51693312 in left kneePain in right kneeOther spondylosis, cervical regionOther spondylosis, lumbar regionRadiculopath y, lumbar regionPain in thoracic spineFibromyalgiaP ostlaminectomy syndrome, not elsewhere classifiedLong term (current) use of opiate analgesic [facility] No Information March- [facility] [place]. Pain Bangs [address] Clinic, John, [address] [place], is, [place], Caterina, [id number] [place], , [place]. [id number] tel:+ , [place] [id number] tel:+ [phone] OFFICE/OUTPAT [facility] Back Pain Anxiety disorder, Apr-2 Ka ngas Referring IENT VISIT, [facility] (chief unspecifiedChronic [place] . Provider: EST Pain [place] complaint) migraine without 2 [address] [facility], aura, intractable, John, Will J, [address] without status [place] [address] John, migrainosusOsteoar is, [place], John, Caterina, thritisPain in [id number] [place], left shoulderPain , [place]. s, [place], [address] in left hipPain in tel: [phone] , [place] right hipPain in 57250615 . tel: left kneePain in tel:2 [phone] right kneeOther [id number] spondylosis, cervical regionOther spondylosis, lumbar regionRadiculopath y, lumbar regionPain in thoracic spineFibromyalgiaP ostlaminectomy syndrome, not elsewhere classifiedLong term (current) use of opiate analgesic OFFICE VISIT, [facility] Back Pain Chronic migraine Jan- [facility] (chief without aura, 0 [place]. TELEMEDICINE Pain [place] complaint) intractable, [address] Clinic, without status John, [address] migrainosusAnxiety [place], disorder, is, [place], [place], unspecifiedOsteoar [id number] [place], thritisPain in , [place]. [id number] left shoulderPain tel: , [place] in right hipPain [id number] tel: in left hipPain in 42722134 right kneePain in left kneeOther spondylosis, cervical regionOther spondylosis, lumbar regionRadiculopath y, lumbar regionPain in thoracic spineFibromyalgiaP ostlaminectomy syndrome, not elsewhere classifiedLong term (current) use of opiate analgesic [facility] No Information Jan- Mario Refer [facility] [place]. Provider: Pain [facility] [facility], John, Will J, [address] [place] [address] John, is, [place], John, Caterina, [id number] [place], , [place]. [place], [place], [id number] tel: [phone] , [place] [id number] . tel: tel: [phone] OFFICE VISIT, [facility] Back Pain Radiculopathy, [facility] (chief lumbar 8 [place]. TELEMEDICINE Pain [place] complaint) regionPostlaminect 2 [address] [facility], marquis syndrome, not John, [address] elsewhere [place] John, classifiedPain in is, [place], Caterina, left hipAnxiety [id number] [place], disorder, , [place]. [id number] unspecifiedPain in tel: , [place] thoracic [phone] tel: spineOsteoarthriti [phone] sChronic migraine without aura, intractable, without status migrainosusPain in right hipPain in left shoulderPain in right kneePain in left kneeFibromyalgiaOt her spondylosis, lumbar regionOther spondylosis, cervical regionLong term (current) use of opiate analgesicEncounter for therapeutic drug level monitoring OFFICE VISIT, [facility] Back Pain Radiculopathy, [facility] Referring [facility] (chief lumbar [place]. Provider: TELEMEDICINE Pain [place] complaint) regionPostlaminect 2 [address] [facility], marquis syndrome, not John, Will J , [address] elsewhere [place] [address] John, classifiedPain in is, [place], John, Caterina, left hipAnxiety [id number] [place], disorder, , [place]. [place], [place], [address] unspecifiedPain in tel: [phone] , [place] thoracic [id number] . tel: spineOsteoarthriti tel : [phone] sChronic migraine 81456 45 without aura, intractable, without status migrainosusPain in right hipPain in left shoulderPain in right kneePain in left kneeFibromyalgiaOt her spondylosis, lumbar regionOther spondylosis, cervical regionLong term (current) use of opiate analgesic OFFICE VISIT, [facility] Back Pain Radiculopathy, [facility] Referring [facility] (chief lumbar 3 [place]. Provider: TELEMEDICINE Pain [place] complaint) regionPostlaminect 2 [address] [facility], marquis syndrome, not Endy Lopez , [address] elsewhere [place] [address] John, classifiedPain in is, [place], John, [place], left hipAnxiety [id number] [place], disorder, , [place]. s, [place], [address] unspecifiedPain in tel: [phone] , [place] thoracic 01068290 . tel: spineOsteoarthriti tel :2 [phone] sChronic migraine 73943 45 without aura, intractable, without status migrainosusPain in right hipPain in left shoulderPain in right kneePain in left kneeFibromyalgiaOt her spondylosis, lumbar regionLong term (current) use of opiate analgesicOther spondylosis, cervical region OFFICE VISIT, [facility] Back Pain Radiculopathy, Kang s [facility] (chief lumbar [place]. TELEMEDICINE Pain [place] complaint) regionPostlaminect 1 [address] [facility], marquis syndrome, not John, [address] elsewhere [place] John, classifiedPain in is, [place], Caterina, left hipAnxiety [id number] [place], disorder, , [place]. 712911568 unspecifiedPain in tel: , [place] thoracic [id number] tel: spineOsteoarthriti [phone] sChronic migraine without aura, intractable, without status migrainosusPain in right hipPain in left shoulderPain in right kneePain in left kneeFibromyalgiaOt her spondylosis, lumbar regionLong term (current) use of opiate analgesicOther spondylosis, cervical region OFFICE/OUTPAT [facility] Back Pain Other spondylosis, K angas Referring IENT VISIT, [facility] (chief cervical [place]. Provide r: EST Pain [place] complaint) regionRadiculopath 1 [address] [facility], y, lumbar Endy Lopez J, [address] regionPostlaminect [place] [address] John, marquis syndrome, not is, [place], John, [place], elsewhere [id number] [place], classifiedPain in , [place]. s, [place], 166551263 left hipAnxiety tel: [phone] , [place] disorder, 51006913 . tel: unspecifiedPain in tel : [phone] thoracic 9691490 spineOsteoarthriti sChronic migraine without aura, intractable, without status migrainosusPain in right hipPain in left shoulderPain in right kneePain in left kneeFibromyalgiaOt her spondylosis, lumbar regionLong term (current) use of opiate analgesic OFFICE VISIT, [facility] Back Pain Other spondylosis, K [facility] (chief cervical [place]. TELEMEDICINE Pain [place] complaint) regionRadiculopath 1 [address] [facility], y, lumbar John, [address] [facility] regionPostlaminect [place], marquis syndrome, not is, [place], Caterina, elsewhere [id number] [place], classifiedPain in , [place]. [id number] left hipAnxiety tel: , [place] disorder, [id number] tel: unspecifiedPain in 19480902 thoracic spineOsteoarthriti sChronic migraine without aura, intractable, without status migrainosusPain in right hipPain in left shoulderPain in right kneePain in left kneeFibromyalgiaOt her spondylosis, lumbar regionLong term (current) use of opiate analgesic OFFICE VISIT, [facility] Back Pain Other spondylosis, Sep-0 K [facility] (chief cervical [place]. Provider: TELEMEDICINE Pain [place] complaint) regionRadiculopath 1 [address] [facility], y, lumbar John, Will J, [address] regionPostlaminect [place] [address] John, marquis syndrome, not is, [place], John, Caterina, elsewhere [id number] [place], classifiedPain in , [place]. s, [place], 565513250 left hipAnxiety tel: [phone] , [place] disorder, 72813278 . tel: unspecifiedPain in tel : [phone] thoracic 4681146 spineOsteoarthriti sChronic migraine without aura, intractable, without status migrainosusPain in right hipPain in left shoulderPain in right kneePain in left kneeFibromyalgiaOt her spondylosis, lumbar regionLong term (current) use of opiate analgesic [facility] Encounter for Mario Referr ing [facility] therapeutic drug [place]. Pro vider: Pain Bangs level 1 [address] [facility], monitoringLong John, Will J, [address] term (current) use [place] [address] John, of opiate is, [place], Jonh, [place], analgesic [id number] [place], , [place]. s, [place], [address] tel:+ [phone] , [place] [id number] . tel: tel:+ [phone] OFFICE/OUTPAT [facility] Back Pain Other spondylosis, K anglucrecia Referring IENT VISIT, [facility] (chief lumbar [place]. Provider : EST Pain [place] complaint) regionFibromyalgia 1 [address] [facility], Pain in left John, Will J, [address] kneePain in right [place] [address] John, kneePain in left is, [place], John, Caterina, shoulderPain in 059481120 [place], right hipChronic , [place]. s, [place], 612125975 migraine without tel:+ [phone] , [place] aura, intractable, 96007542 . tel: without status tel:+[phone] migrainosusOsteoar 8412 345 thritisPain in thoracic spineAnxiety disorder, unspecifiedPain in left hipPostlaminectomy syndrome, not elsewhere classifiedRadiculo shane, lumbar regionOther spondylosis, cervical regionLong term (current) use of opiate analgesicEncounter for therapeutic drug level monitoring OFFICE VISIT, [facility] Back Pain Other spondylosis, shlomo Referring EST [facility] (chief lumbar [place]. Provider: TELEMEDICINE Pain Caterina complaint) regionFibromyalgia 1 [address] [facility], Pain in left John, Will J, [address] kneePain in right [place] [address] John, kneePain in left is, [place], John, Caterina, shoulderPain in [id number] [place], right hipChronic , [place]. s, [place], 242992441 migraine without tel:+ [phone] , [place] aura, intractable, 06419997 . tel: without status tel:+ [phone] migrainosusOsteoar 8412 345 thritisPain in thoracic spineAnxiety disorder, unspecifiedPain in left hipPostlaminectomy syndrome, not elsewhere classifiedRadiculo shane, lumbar regionOther spondylosis, cervical regionLong term (current) use of opiate analgesic OFFICE VISIT, [facility] Back Pain Other spondylosis, K ang Referring [facility] (chief lumbar [place]. Provider: TELEMEDICINE Pain [place] complaint) regionFibromyalgia 1 [address] [facility], Pain in left John, Will J, [address] kneePain in right [place] [address] John, kneePain in left is, [place], John, [place], shoulderPain in [id number] [place], right hipChronic , [place]. s, [place], 279196522 migraine without tel:+ [phone] , [place] aura, intractable, 88683502 . tel: without status tel:+ [phone] migrainosusOsteoar 8412 345 thritisPain in thoracic spineAnxiety disorder, unspecifiedPain in left hipPostlaminectomy syndrome, not elsewhere classifiedRadiculo shane, lumbar regionOther spondylosis, cervical regionLong term (current) use of opiate analgesic OFFICE VISIT, [facility] Back Pain Other spondylosis, 0 K [facility] Referring [facility] (chief lumbar [place]. Provider: TELEMEDICINE Pain Caterina complaint) [facility]Fibromyalgia 1 [facility] [facility], Pain in left John, Will J, [address] kneePain in right [place] [address] John, kneePain in left is, [place], John, Caterina, shoulderPain in [id number] [place], right hipChronic , [place]. s, [place], 977497650 migraine without tel:+ [phone] , [place] aura, intractable, 13059015 . tel: without status tel: [phone] migrainosusOsteoar 8412 345 thritisPain in thoracic spineAnxiety disorder, unspecifiedPain in left hipPostlaminectomy syndrome, not elsewhere classifiedRadiculo shane, lumbar regionOther spondylosis, cervical regionLong term (current) use of opiate analgesic [facility] Back Pain Other spondylosis, March-0 Mario Referring [facility] (chief lumbar 4 [place]. Provider: Pain Caterina complaint) regionFibromyalgia 1 [address] [facility], Pain in left John, Will J, [address] kneePain in right [place] [address] John, kneeChronic is, [place], John, Caterina, migraine without [id number] [place], aura, intractable, , [place]. [place], [place] , 756944836 without status tel: [phone] , [place] migrainosusPain in 93906459 . tel: right hipPain in tel: [phone] left shoulderPain 06767 45 in right shoulderOsteoarthr itisPain in thoracic spineAnxiety disorder, unspecifiedPain in left hipPostlaminectomy syndrome, not elsewhere classifiedRadiculo shane, lumbar regionOther spondylosis, cervical regionLong term (current) use of opiate analgesic OFFICE VISIT, [facility] Back Pain Other spondylosis, Jan-2 K [facility] Referring [facility] (chief lumbar 5 [place]. Provider: TELEMEDICINE Pain [place] complaint) regionFibromyalgia 1 [address] [facility], Pain in left John, Will J, [address] kneePain in right [place] [address] John, kneeChronic is, [place], John, Caterina, migraine without [id number] [place], aura, intractable, , [place]. [place], [place] , 662302452 without status tel: [phone] , [place] migrainosusPain in 20538293 . tel: right hipPain in tel: [phone] left shoulderPain 11474 45 in right shoulderOsteoarthr itisPain in thoracic spineAnxiety disorder, unspecifiedPain in left hipPostlaminectomy syndrome, not elsewhere classifiedRadiculo shane, lumbar regionOther spondylosis, cervical regionLong term (current) use of opiate analgesic OFFICE VISIT, [facility] Back Pain Pain in left [facility] Referring [facility] (chief hipPostlaminectomy [place]. P rovider: TELEMEDICINE Pain Caterina complaint) syndrome, not 1 [address] [facility], elsewhere John, Endy J, [address] classifiedRadiculo [place] [address] John, shane, lumbar is, [place], John, [place], regionOther [id number] [place], spondylosis, , [place]. s, [place], 073380314 cervical tel: [phone] , [place] regionOther 59866307 . tel: spondylosis, tel: [phone] lumbar 9991840 regionFibromyalgia Pain in left kneePain in right kneeChronic migraine without aura, intractable, without status migrainosusPain in right hipPain in left shoulderPain in right shoulderOsteoarthr itisPain in thoracic spineAnxiety disorder, unspecifiedLong term (current) use of opiate analgesic OFFICE VISIT, [facility] Back Pain Pain in left [facility] Referring [facility] (chief hipPostlaminectomy [place]. P rovider: TELEMEDICINE Pain [place] complaint) syndrome, not 1 7[address] [facility], elsewhere John, Endy J, [address] classifiedRadiculo [place] [address] John, shane, lumbar is, [place], John, [place], regionOther [id number] [place], spondylosis, , [place]. s, [place], 510059491 cervical tel: [phone] , [place] regionOther 61609948 . tel: spondylosis, tel: 2 [phone] lumbar 8939035 regionFibromyalgia Pain in left kneePain in right kneeChronic migraine without aura, intractable, without status migrainosusPain in right hipPain in left shoulderPain in right shoulderOsteoarthr itisPain in thoracic spineAnxiety disorder, unspecifiedLong term (current) use of opiate analgesic OFFICE VISIT, [facility] Back Pain Pain in left as Referring [facility] (chief hipPostlaminectomy [place]. P rovider: TELEMEDICINE Pain Caterina complaint) syndrome, not 0 [address] [facility], elsewhere Endy Lopez J, [address] classifiedRadiculo [place] [address] John, shane, lumbar is, [place], John, [place], regionOther [id number] [place], spondylosis, , [place]. s, [place], 497570[address] cervical tel: [phone] , [place] regionOther [id number] . tel: spondylosis, tel: 2 [phone] lumbar 7869264 regionFibromyalgia Pain in left kneePain in right kneeChronic migraine without aura, intractable, without status migrainosusPain in right hipPain in left shoulderPain in right shoulderOsteoarthr itisPain in thoracic spineAnxiety disorder, unspecifiedLong term (current) use of opiate analgesic OFFICE VISIT, [facility] Back Pain Postlaminectomy Gonzalez as Referring [facility] (chief syndrome, not [place]. Provid er: TELEMEDICINE Pain [place] complaint) elsewhere [address] [facility], classifiedRadiculo Endy Lopez J, [address] shane, lumbar [place] [address] John, regionOther is, [place], John, Caterina, spondylosis, [id number] [place], cervical , [place]. s, [place], 013095343 regionOther tel: [phone] , [place] spondylosis, 46643537 . tel: lumbar tel:2 [phone] regionFibromyalgia 8412 345 Pain in left kneePain in right kneeChronic migraine without aura, intractable, without status migrainosusPain in left hipPain in right hipPain in left shoulderPain in right shoulderOsteoarthr itisPain in thoracic spineAnxiety disorder, unspecifiedLong term (current) use of opiate analgesic OFFICE/OUTPAT [facility] Back Pain Postlaminectomy Carlos as Referring IENT VISIT, [facility] (chief syndrome, not [place]. Pr ovider: EST Pain Caterina complaint) elsewhere [facility], classifiedRadiculo Endy Lopez J, [address] shane, lumbar [place] [address] [facility] [place], regionOther is, [place], John, Caterina, spondylosis, [id number] [place], cervical , [place]. s, [place], 946020170 regionOther tel: [phone] , [place] spondylosis, [id number] . tel: lumbar tel: [phone] regionFibromyalgia 8412 345 Pain in left kneePain in right kneeChronic migraine without aura, intractable, without status migrainosusPain in left hipPain in right hipPain in left shoulderPain in right shoulderOsteoarthr itisPain in thoracic spineAnxiety disorder, unspecifiedLong term (current) use of opiate analgesicEncounter for therapeutic drug level monitoring OFFICE VISIT, [facility] Back Pain Postlaminectomy Jul- Gonzalez as Referring [facility] (chief syndrome, not [place]. Provid er: TELEMEDICINE Pain Caterina complaint) elsewhere 0 [address]235 [facility], classifiedRadiculo Endy Lopez J, [address] [facility] shane, lumbar [place] [address] [facility] [place], regionOther is, [place], John, Caterina, spondylosis, [id number] [place], cervical , [place]. s, [place], 111747718 regionOther tel: [phone] , [place] spondylosis, 21568370 . tel: lumbar regionLong tel: [phone] term (current) use 8412 345 of opiate analgesicAnxiety disorder, unspecifiedFibromy algiaPain in left kneePain in right kneeChronic migraine without aura, intractable, without status migrainosusPain in left hipPain in right hipPain in left shoulderPain in right shoulderOsteoarthr itisPain in thoracic spine OFFICE VISIT, [facility] Back Pain Postlaminectomy Yeimy en Referring [facility] (chief syndrome, not Venu. Provid er: TELEMEDICINE Pain [place] complaint) elsewhere 0 [address] [facility], [facility] [address] Jermaine l J, [address] shane, lumbar 11 Umair [address] John, regionOther 100, John, Caterina, spondylosis, [place], cervical e, [place], s, MN, 918747472 regionOther [id number] [phone] , [place] spondylosis, , [place]. . tel: lumbar regionLong tel: te l:+ [phone] term (current) use [id number] [phone] of opiate analgesicAnxiety disorder, unspecified [facility] Postlaminectomy RN RN. Refe [facility] syndrome, not [address] Prov ider: Pain Caterina elsewhere 0 Peter Lopez [facility], classified Minnejovita Patel, [address] is, [place], [address] John, [id number] John, Caterina, , [place]. [place], tel: s, [place], [id number] , [place] . tel: tel: [phone] [facility] Postlaminectomy Kokayeff Ref [facility] Surgery syndrome, not Gi. Provider: Pain Center elsewhere 0 [facility], classified Endy Lopez, [address] [place] [address] John, is, [place], John, Bangs, [id number] [place], , [place]. s, MN, 513787391 tel:[phone] , [place] [id number] . tel: tel: [phone] OFFICE VISIT, [facility] Back Pain Postlaminectomy Kanga s Referring [facility] (chief syndrome, not [facility]. Provider: TELEMEDICINE Pain complaint) elsewhere 0 [address] [facility], classifiedRadiculo Endy Lopez, [address] shane, lumbar [place] [address] John, regionOther is, [place], John, Bangs, spondylosis, [id number] [place], cervical , [place]. s, MN, 986651739 regionOther tel: [phone] , [place] spondylosis, [id number] . tel: lumbar regionLong tel: [phone] term (current) use [phone] of opiate analgesicAnxiety disorder, unspecified [facility] Postlaminectomy [facility] syndrome, not 2- [place]. Provid er: Pain Bangs elsewhere 0 7235 [facility], classified Endy Lopez, [address] [place] [address] John, is, [place], John Caterina, [id number] [place], , [place]. s, MN, 364992166 tel: [phone] , [place] [id number] . tel: tel: [phone] [facility] syndrome, not Gi. Provider: Pain Center elsewhere 0 7235 [facility], classified Endy Lopez, [address] [place] [address] John, is, [place], John, Bangs, [id number] [place], , [place]. s, MN, 673383411 tel: [phone] , [place] [id number] . tel: tel: [phone] OFFICE VISIT, [facility] Postlaminectomy [facility] (chief syndrome, not [place]. Provider: TELEMEDICINE Pain complaint) elsewhere 0 7235 [facility], classifiedRadiculo Endy Lopez, [address] shane, lumbar [place] [address] John, regionLong term is, [place], John, Bangs, (current) use of [id number] [place], opiate , [place]. s, MN, 797880356 analgesicOther tel: [phone] , [place] spondylosis, [id number] . tel: cervical tel: [phone] regionOther [id number] spondylosis, lumbar region [facility] No Information [facility] [place]. Pain Caterina 0 7235 [facility], John, [address] [place] John, is, [place], Bangs, [id number] MN, , [place]. [id number] tel: , [place] [id number] tel: [phone] OFFICE VISIT, [facility] Back Pain CervicalgiaPostlam K shlomo Referring [facility] (chief inectomy syndrome, [place]. P rovider: TELEMEDICINE Pain Caterina complaint) not elsewhere 0 [facility], classifiedRadiculo John, Will J, [address] shane, lumbar [place] [address] John, regionLong term is, [place], John, Caterina, (current) use of [id number] [place], opiate analgesic , [place]. s, [place], 703041993 tel: [phone] , [place] [id number] . tel: tel: [phone] Psych Dx Eval [facility] Pain disorder with Juliana e [facility] related Maikel Provider: Pain psychological 0 Peg. 7235 [facility], factorsBipolar Ohms Will J, [address] disorder John, [address] John, [place], Bangs, is, [place], [place], [id number] s, [place], 6175036[address] , [place]. [address] , [place] tel: . tel: [phone] tel: [phone] OFFICE VISIT, [facility] Back Pain Postlaminectomy Michael zaldivar Referring [facility] (chief syndrome, not [place]. Provider: TELEMEDICINE Pain complaint) elsewhere 0 [address] [facility], classifiedLong John, Will J, [address] term (current) use [place] 7 [address] John, of opiate is, [place], John, Bangs, analgesicRadiculop [id number] [place], athy, lumbar , [place]. s, MN, 027983932 regionCervicalgia tel: [phone] , [place] [id number] . tel: tel: [phone] [facility] No Information [facility] Peter. Pain Bangs 0 7235 [facility], John, [address] [place] John, is, [place], Caterina, [id number] [place], , [place]. [id number] tel: , US [id number] tel: [phone] OFFICE/OUTPAT [facility] Back Pain Postlaminectomy Gonzalez as Referring IENT VISIT, [facility] (chief syndrome, not [place]. Pr ovider: EST Pain Caterina complaint) elsewhere 0 7235 [facility], classifiedLong John, Will J, [address] term (current) use [place] 7 [address] John, of opiate is, [place], John, Caterina, analgesicCervicalg [id number] [place], iaRadiculopathy, , [place]. s, MN, 719615071 lumbar region tel: [phone] , [place] [id number] . tel: tel:[phone] [facility] Postlaminectomy Garcia Refe rring [facility] Surgery syndrome, not Viry. Provider: Pain Center elsewhere 0 [facility], [facility] John, Endy J, [address] [place] [address] John, is, [place], John, Bangs, [id number] [place], , [place]. s, MN, 383766879 tel: [phone] , [place] [id number] . tel: tel:[phone] OFFICE/OUTPAT [facility] Back Pain Postlaminectomy Carlos as Referring IENT VISIT, [facility] (chief syndrome, not [place]. Pr ovider: EST Pain Bangs complaint) elsewhere 0 [facility], classifiedCervical John, Will J, [address] giaRadiculopathy, [place] 72 35 [address] John, lumbar regionLong is, [place], John, Bangs, term (current) use [id number] [place], of opiate , [place]. s, MN, 140858363 analgesicCarrier tel: [phone] , [place] of Methicillin [id number] . tel: susceptible tel: [phone] Staphylococcus 7385579 aureusCarrier of Methicillin resistant Staph aureusMethicillin resis staph infct causing diseases classd elswhrEncounter for therapeutic drug level monitoring [facility] Postlaminectomy [facility] syndrome, not [place]. Pain Caterina elsewhere 0 7235 [facility], classified John, [address] [place] John, is, [place], Caterina, [id number] [place], , [place]. 494637241 tel: , US [id number] tel: [phone] OFFICE/OUTPAT [facility] Back Pain Radiculopathy, s Referring IENT VISIT, [facility] (chief lumbar 7-202 [place]. Provider : EST Pain Bangs complaint) regionPostlaminect 0 7235 [facility], marquis syndrome, not John, Will J , [address] elsewhere [place] [address] John, classifiedCervical is, [place], John, Bangs, giaLong term [id number] [place], (current) use of , [place]. s, MN, 832063230 opiate analgesic tel: [phone] , [place] [id number] . tel: tel: [phone] OFFICE/OUTPAT [facility] Back Pain Radiculopathy, s Referring IENT VISIT, [facility] (chief lumbar 7-201 [place]. Provider : EST Pain Bangs complaint) regionCervicalgiaL 9 7235 [facility], beryl term (current) John, Will J, [address] use of opiate [place] [address] John, analgesicPostlamin is, MN, John, Caterina, ectomy syndrome, [id number] [place], not elsewhere , [place]. s, MN, 818436047 classified tel: [phone] , [place] [id number] . tel: tel: [phone] OFFICE/OUTPAT [facility] Back Pain Chronic pain Referring IENT VISIT, [facility] (chief syndromePostlamine 6-201 [place] . Provider: EST Pain Caterina complaint) ctomy syndrome, 9 [address] [facility], not elsewhere Endy Lopez J, [address] classifiedRadiculo [place] 7 [address] John, shane, lumbar is, [place], John, Caterina, regionCervicalgiaL [id number] [place], beryl term (current) , [place]. s, [place] , 347855654 use of opiate tel: [phone] , [place] analgesic 91341572 . 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 Provider: EST Pain Caterina complaint) opiate 9 7235 [facility], analgesicPostlamin Endy Lopez J, [address] ectomy syndrome, [place] 723 [address] John, not elsewhere is, [place], John, Caterina, classifiedRadiculo [id number] [place], shane, lumbar , [place]. s, MN, 979039400 regionCervicalgia tel: [phone] , [place] [id number] . tel: tel: [phone] OFFICE/OUTPAT [facility] Back Pain Postlaminectomy Gonzalez as Referring IENT VISIT, [facility] (chief syndrome, not 0-201 [place]. Pr ovider: EST Pain Caterina complaint) elsewhere 9 [facility], classifiedLow back Endy Lopez J, [address] painCervicalgiaLon [place] 7 [address] John, g term (current) is, [place], John, Caterina, use of opiate 108789543 [place], analgesic , [place]. s, MN, 914923358 tel: [phone] , US 57428147 . tel: tel:[phone] OFFICE/OUTPAT [facility] Back Pain Postlaminectomy Carlos as Referring IENT VISIT, [facility] (chief syndrome, not 0-201 [place]. Pr ovider: EST Pain Bangs complaint) elsewhere 9 7235 [facility], classifiedLow back John, Will J, [address] painCervicalgiaLon [place] 7 [address] John, g term (current) is, [place], John, Caterina, use of opiate [id number] [place], analgesic , [place]. s, MN, 539966484 tel:[phone] , [place] [id number] . tel: tel: [phone] OFFICE/OUTPAT [facility] Back Pain Postlaminectomy Gonzalez as Referring IENT VISIT, [facility] (chief syndrome, not 1-201 [place]. Pr ovider: EST Pain Bangs complaint) elsewhere 9 7235 [facility], classifiedLow back John, Will J, [address] painCervicalgiaEnc [place] 7 [address] anya Lopez for is, [place], John, Bangs, therapeutic drug [id number] [place], level , [place]. s, MN, 858504291 monitoringLong tel:43 , [place] term (current) use 53961739 . tel: of opiate tel: [phone] analgesic [id number] OFFICE/OUTPAT [facility] Back Pain Postlaminectomy Gonzalez as Referring IENT VISIT, [facility] (chief syndrome, not 1-201 [place]. Pr ovider: EST Pain Bangs complaint) elsewhere 9 7235 [facility], classifiedLow back John, Will J, [address] painCervicalgiaLon [place] 7 [address] John, g term (current) is, [place], John, Bangs, use of opiate 832628337 [place], analgesic , [place]. s, MN, 733425380 tel:[phone] , US [id number] . tel: tel:[phone] OFFICE/OUTPAT [facility] Back Pain Postlaminectomy Apr-0 Garcia Referring IENT VISIT, [facility] (chief syndrome, not 2-201 Viry. Pr ovider: EST Pain Caterina complaint) elsewhere 9 7235 [facility], classifiedRadiculo Endy Lopez, [address] shane, lumbar [place] 7235 O [facility] [place], regionCervicalgiaL is, [place], Caterina Lopez, beryl term (current) [id number] [place], use of opiate , [place]. s, [place], 372545709 analgesic tel:+ [phone] , [place] 56587338 . tel: tel:[phone] OFFICE/OUTPAT [facility] Back Pain Chronic pain Referring IENT VISIT, [facility] (chief syndromeRadiculopa 3-201 [place] . Provider: EST Pain Caterina complaint) thy, lumbar 9 7235 [facility], regionLow back Endy Lopez, [address] painLong term [place] 7235 O [facility] [place], (current) use of [address], [place], opiate analgesic [id number] [place], , [place]. [place], [place], 300588151 tel: [phone] , [place] [id number] . tel: tel:[phone] [facility] Postlaminectomy Refe rring [facility] syndrome, not 3-201 [place]. Provid er: Pain Bangs elsewhere 9 7235 [facility], classified Endy Lopez, [address] [place] [address] John, is, REID, Caterina Lopez, [id number] [place], , [place]. s, MN, 969358468 tel: [phone] , [place] [id number] . tel: tel:[phone] OFFICE/OUTPAT [facility] Back Pain Radiculopathy, Oct- Kanga s Referring IENT VISIT, [facility] (chief lumbar regionLow 3-201 [place]. Provider: EST Pain Bangs complaint) back painLong term 8 7235 [facility], (current) use of Endy Lopez, [address] opiate analgesic [place] [address] John, is, [place], John Bangs, [id number] [place], , [place]. s, MN, 376171688 tel:[phone] , [place] [id number] . tel: tel: [phone] [facility] Postlaminectomy Nov-0 Mario Refe [facility] syndrome, not 1- [place]. Provid er: Pain Caterina elsewhere 8 7235 [facility], classified John Will J, [address] [place] 7235 [facility] John, is, [place], John, Bangs, [id number] [place], , [place]. s, MN, 169472681 tel:[phone] , [place] [id number] . tel: tel: [phone] [facility] Postlaminectomy Oct-2 Garcia Refe [facility] syndrome, not - Viry. Provider: Pain Center elsewhere 8 7235 [facility], classified John Will J, [address] [place] [address] John, is, [place], John Bangs, [id number] [place], , [place]. s, MN, 091467417 tel:[phone] , US [id number] . tel: tel: [phone] OFFICE/OUTPAT [facility] Back Pain Postlaminectomy Oct-2 Gonzalez as Referring IENT VISIT, [facility] (chief syndrome, not 2-201 [place]. Pr ovider: EST Pain Bangs complaint) elsewhere 8 7235 [facility], classifiedRadiculo John, Will J, [address] shane, lumbar [place] [address] John, regionLow back is, [place], John, Bangs, pain [id number] [place], , [place]. [place], MN, 477793582 tel:[phone] , [place] 63442882 . tel: tel: [phone] [facility] Postlaminectomy Oct-0 Mario Refe [facility] syndrome, not 1- [place]. Provid er: Pain Bangs elsewhere 8 7235 [facility], classifiedLow back John, Will J, [address] pain [place] [address] John, is, [place], John, Caterina, [id number] [place], , [place]. [place], MN, 078247531 tel:+ [phone] , [place] 11457888 . tel: tel:[phone] [facility] Postlaminectomy Sep-2 Garcia Refe [facility] Surgery syndrome, not 7- Viry. Provider: Pain Center elsewhere 8 7235 [facility], classified John, Endy J, [address] [place] [address] John, is, [place], John, Bangs, [id number] [place], , [place]. s, MN, 307151546 tel: [phone] , [place] 89609400 . tel: tel:[phone] OFFICE/OUTPAT [facility] Back Pain Chronic pain Sep-1 Mario Referring IENT VISIT, [facility] (chief syndromePostlamine 9 [place] . Provider: EST Pain Caterina complaint) ctomy syndrome, 8 [address] [facility], not elsewhere Endy Lopez J, [address] classifiedRadiculo [place] 7 [address] John, shane, lumbar is, [place], John, Caterina, regionLow back [id number] [place], pain , [place]. [place], MN, 870592357 tel:+ [phone] , [place] 70712725 . tel: tel:[phone] OFFICE/OUTPAT [facility] Back Pain Chronic pain Sep-0 Mario Referring IENT VISIT, [facility] (chief syndromeCervicalgi 5- [place] . Provider: EST Pain Bangs complaint) aPostlaminectomy 8 7235 [facility], syndrome, not John, Will J, [address] elsewhere [place] [address] John, classifiedLow back is, [place], John, Caterina, painRadiculopathy, 069198307 [place], lumbar region , [place]. [place], MN, 521319452 tel: [phone] , [place] 30943171 . tel: tel:[phone] OFFICE/OUTPAT [facility] Back Pain Postlaminectomy Gonzalez as Referring IENT VISIT, [facility] (chief syndrome, not 6 [place]. Pr ovider: EST Pain Bangs complaint) elsewhere 8 7235 [facility], classifiedChronic Endy Lopez J , [address] pain [place] [address] John, syndromeCervicalgi is, [place], John, Caterina, aLow back pain [id number] [place], , [place]. [place], [place], 218746116 tel:[phone] , [place] [id number] . tel: tel:[phone] OFFICE/OUTPAT [facility] Back Pain Chronic pain Mario Referring IENT VISIT, [facility] (chief syndromeCervicalgi [place] . Provider: EST Pain Caterina complaint) aLow back pain 8 [address] [facility], Endy Lopez, [address] [place] [address] John, is, [place], John Bangs, [id number] [place], , [place]. [place], [place], 375267697 tel:[phone] , [place] 32980865 . tel: tel: [phone] OFFICE/OUTPAT [facility] Back Pain CervicalgiaChronic K angas Referring IENT VISIT, [facility] (chief pain syndromeLow 3201 [place]. Provider: EST Pain Bangs complaint) back painLumbago 8 [address] [facility], with sciatica, Endy Lopez J, [address] left [place] [address] John, sidePostlaminectom is, [place], John, Caterina, y syndrome, not [id number] [place], elsewhere , [place]. s, MN, 625026143 classifiedLong tel:438 , [place] term (current) use 38140252 . tel: of opiate tel: [phone] analgesic [phone] OFFICE/OUTPAT [facility] Back Pain CervicalgiaChronic Apr-0 K angas Referring IENT VISIT, [facility] (chief pain syndromeLow 6- [place]. Provider: EST Pain Bangs complaint) back 8 7235 [facility], painPostlaminectom Endy Lopez J, [address] y syndrome, not [place] [address] John, elsewhere is, MNJohn [place], classified [id number] [place], , [place]. [place], MN, 835225939 tel: [phone] , [place] [id number] . tel: tel: [phone] [facility] CervicalgiaChronic Feb0 K angas Referring IENT VISIT, [facility] (chief pain syndromeLow 6 [place]. Provider: EST Pain Bangs complaint) back 8 7235 [facility], painPostlaminectom Endy Lopez J, [address] y syndrome, not [place] [address] John, elsewhere is, [place], Caterina Lopez, classified [id number] [place], , [place]. [place], [place], 325211280 tel: [phone] , [place] 16886144 . tel: tel: [phone] OFFICE/[facility] Back Pain CervicalgiaChronic Dec0 K angas Referring IENT VISIT, [facility] (chief pain syndromeLow 8201 [place]. Provider: EST Pain Bangs complaint) back 7 7235 [facility], painPostlaminectom JohnEndy J, [address] y syndrome, not [place] [address] John, elsewhere is, MNJohn [place], classified [id number] [place], , [place]. [place], [place], 454137377 tel: [phone] , [place] 73283859 . tel: tel: [phone] OFFICE/OUTPAT [facility] Back Pain CervicalgiaLow Kanga s Referring IENT VISIT, [facility] (chief back 0-201 [place]. Provider : EST Pain Bangs complaint) painPostlaminectom 7 7235 [facility], y syndrome, not John, Endy Patel, [address] elsewhere [place] [address] John, classified is, [place], Chandana Lopeza, [id number] [place], , [place]. [place], [place], 503418703 tel: [phone] , [place] [id number] . tel: tel:+ [phone] OFFICE/OUTPAT [facility] Postlaminectomy Gonzalez as Referring IENT VISIT, [facility] (chief syndrome, not [place]. Pr ovider: EST Pain Bangs complaint) elsewhere 7 7235 [facility], classifiedLow back Endy Lopez, [address] painCervicalgia [place] 7235 [facility] John, is, [place], Caterina Lopez, [id number] [place], , [place]. [place], [place], 158679767 tel: [phone] , US [id number] . tel: tel:[phone] OFFICE/OUTPAT [facility] Back Pain Low back Mario Ref erring IENT VISIT, [facility] (chief painCervicalgiaChr [place] . Provider: EST Pain Caterina complaint) onic pain 7 7235 [facility], syndromePostlamine Endy Lopez J, [address] ctomy syndrome, [place] [address] John, not elsewhere is, [place], John, Bangs, classified [id number] [place], , [place]. [place], MN, 262949395 tel: [phone] , [place] [id number] . tel: tel:[phone] OFFICE/OUTPAT [facility] Back Pain Low back March- Mario Ref erring IENT VISIT, [facility] (chief painCervicalgiaChr [place] . Provider: EST Pain Caterina complaint) onic pain 7 [address] [facility], syndromePostlamine Endy Lopez J, 7235 [facility] ctomy syndrome, [place] [address] John, not elsewhere is, [place], Caterina Lopez, classified [id number] [place], , [place]. [place], [place], 994933548 tel: [phone] , US [id number] . tel: tel:[phone] OFFICE/OUTPAT [facility] Back Pain Low back May-0 Mario Ref erring IENT VISIT, [facility] (chief painCervicalgiaChr [place] . Provider: EST Pain Bangs complaint) onic pain syndrome 7 7235 [facility], Endy Lopez, [address] [place] [address] John, is, REID, Caterina Lopez, [id number] [place], , [place]. [place], [place], 930431177 tel:[phone] , [place] [id number] . tel: tel: [phone] OFFICE/OUTPAT [facility] Back Pain CervicalgiaChronic Apr-0 K angas Referring IENT VISIT, [facility] (chief pain syndromeLow [place]. Provider: EST Pain Bangs complaint) back 7 7235 [facility], painPostlaminectom Endy Lopez, [address] y syndrome, not [place] [address] John, elsewhere is, MNJohn [place], classified [id number] Denisa [place], , [place]. [place], [place], 346614934 tel:[phone] , [place] [id number] . tel: tel: [phone] OFFICE/OUTPAT [facility] Back Pain Low back Mar-0 Mario Ref erring IENT VISIT, [facility] (chief painCervicalgiaChr [place] . Provider: EST Pain Caterina complaint) onic pain 7 7235 [facility], syndromePostlamine Endy Lopez J, [address] ctomy syndrome, [place] [address] Jonh, not elsewhere is, [place], Caterina Lopez, classified [id number] [place], , [place]. [place], [place], 500857007 tel: [phone] , US [id number] . tel: tel: [phone] OFFICE/OUTPAT [facility] Back Pain CervicalgiaLow Kanga s Referring IENT VISIT, [facility] (chief back painChronic [place]. Provider: EST Pain Caterina complaint) pain syndrome 7 7235 [facility], John Will J, [address] [place] [address] John, is, [place], Caterina Lopez, [id number] [place], , [place]. [place], [place], 177374345 tel: [phone] , [place] [id number] . tel: tel: [phone] OFFICE/OUTPAT [facility] Back Pain Low back Mario Ref erring IENT VISIT, [facility] (chief painCervicalgiaChr [place] . Provider: EST Pain Caterina complaint) onic pain syndrome 7 7235 [facility], John Will J, [address] [place] [address] John, is, [place], Caterina Lopez, [id number] Denisa [place], , [place]. [place], [place], 568166436 tel: [phone] , [place] [id number] . tel: tel: [phone] OFFICE/OUTPAT [facility] Back Pain Low back Mario Ref erring IENT VISIT, [facility] (chief painCervicalgiaPos [facility] . Provider: EST Pain Bangs complaint) tlaminectomy 6 7235 [facility], syndrome, not John, Will J, [address] elsewhere [place] 7235 [facility] John, classifiedChronic is, [place], Caterina Lopez, pain syndrome [id number] Janae [place], , [place]. [place], [place], 918469785 tel: [phone] , [place] [id number] . tel: tel: [phone] OFFICE/OUTPAT [facility] Hospital Back Pain Low back Mario Ref erring IENT VISIT, [facility] (chief painCervicalgiaPos Rosetta . Provider: EST Pain Caterina complaint) tlaminectomy 6 [address] [facility], syndrome, not John, Will J, [address] elsewhere [place] [address] John, classified [place], [place], John, [place], [id number] [place], , [place]. [place], [place], [id number] tel: [phone] , [place] [id number] . tel: tel: [phone] OFFICE/OUTPAT [facility] Back Pain Lumbago with Van Referring IENT VISIT, [facility] (chief sciatica, left Overbeke Provider: EST Pain Caterina complaint) sideLong term 6 Kera. [facility], (current) use of [address] Will J, [address] opiate John, [address] John, analgesicCervicalg [place] Kalin e, Caterina, [place], [place], [place], [id number] [place], [place], [id number] , [place]. [address] , [place] tel: . tel: [phone] tel: [phone] OFFICE/OUTPAT [facility] Back Pain CervicalgiaLow Kanga s Referring IENT VISIT, [facility] (chief back Rosetta. Provider : EST Pain Caterina complaint) painPostlaminectom 6 [address] [facility], y syndrome, not John, Will J, [address] elsewhere [place] [address] John, classified [place], [place], Jhon, Caterina, [id number] [place], , [place]. [place], [place], [id number] tel: [phone] , [place] [id number] . tel: tel: [phone] OFFICE/OUTPAT [facility] Back Pain Low back Jun- Mario Ref erring IENT VISIT, [facility] (chief painCervicalgiaPos Rosetta . Provider: EST Pain Bangs complaint) tlaminectomy 6 [address] [facility], syndrome, not John, Will J, [address] elsewhere [place] [address] John, classified [place], [place], John, [place], [id number] [place], , [place]. [place], [place], [id number] tel: [phone] , [place] [id number] . tel: tel:[phone] OFFICE/OUTPAT [facility] Back Pain CervicalgiaLow Kanga s Referring IENT VISIT, [facility] (chief back painLumbago 5-201 [place]. Provider: EST Pain Caterina complaint) with sciatica, 6 7235 [facility], left side John, Will J, [address] [place] [address] John, is, [place], John, Caterina, [id number] [place], , [place]. [place], [place], [id number] tel:[phone] , [place] [id number] . tel: tel:[phone] OFFICE/OUTPAT [facility] Back Pain Low back Kanu- Mario Ref erring IENT VISIT, [facility] (chief painCervicalgia Rosetta. Provider: EST Pain Bangs complaint) 6 [address] [facility], John, Will J, [address] [place] [address] [place], is, [place], John, Caterina, [id number] [place], , [place]. [place], [place], [id number] tel:[phone] , [place] [id number] . tel: tel: [phone] OFFICE/OUTPAT [facility] Back Pain CervicalgiaLow March- Kanga s Referring IENT VISIT, [facility] (chief back painLumbago 0-201 [place]. Provider: EST Pain Bangs complaint) with sciatica, 6 7235 [facility], left John, Will J, [address] sidePostlaminectom [place] [address] John, y syndrome, not is, [place], John, Bangs, elsewhere [id number] [place], classified , [place]. [place], [place], [id number] tel: [phone] , [place] [id number] . tel: tel: [phone] OFFICE/OUTPAT [facility] Low back Apr-2 Mario Ref erring IENT VISIT, [facility] (chief painCervicalgiaLum 2 [place] . Provider: EST Pain Bangs complaint) bago with 6 [address] [facility], sciatica, left John, Will J, [address] [place] [address] John, is, [place], John, Caterina, [id number] [place], , [place]. [place], [place], [id number] tel: [phone] , [place] [id number] . tel: tel: [phone] OFFICE/OUTPAT [facility] Back Pain Low back Apr-0 Mario Ref erring IENT VISIT, [facility] (chief painCervicalgia 6 [place]. Provider: EST Pain Caterina complaint) 6 [address] [facility], John, Will J, [address] [place] [address] [place], is, [place], John, Caterina, [id number] [place], , [place]. [place], [place], [id number] tel: [phone] , [place] [id number] . tel: tel: [phone] OFFICE/OUTPAT [facility] Back Pain Low back Mar-2 Mario Ref erring IENT VISIT, [facility] (chief painCervicalgiaLum 5 [place] . Provider: NEW Pain Caterina complaint) bago with 6 [address] [facility], sciatica, left John, Will J, [address] sideLong term [place] [address] John, (current) use of is, [place], John, [place], opiate [id number] [place], analgesicPostlamin , [place]. [place], [place] , [id number] ectomy syndrome, tel: [phone] , [place] not elsewhere [id number] . tel: classified tel: [phone] Family History Family Member Type Diagnosis Age At Onset Mother Problem (finding) back pain Payers Payer name Insurance type Covered alliance party ID Authorization(s ) Medicare PACO [id number] [facility] [id number] Social History Type Description Quantity Date Captured Comments Alcohol Use Details Unknown Caffeine Use Details Unknown Tobacco Use Status Smoking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
--- OUTSIDE RECORDS SUMMARY | 2022-09-20 14:21 | XMS_ITS | Encounter Summary ---
:1965 Author Organization [facility] Address [address] [place] [address] Care Team Providers Name Role Phone Jose Holden MD Primary Care Provider [phone] Reason for Visit Reason Comments Medication Request Encounter Details Date Type Department Care Team Description 12/08/2019 Telephone Careline Unknown, Physician Medication Request [address] [place], [place] [address] [place], [place] [phone] (Wo rk) Social History Tobacco Use Types [...] pain medication. Pt advised to surgeon at [place]. OUT INSPECTOR documented in this encounter Plan of Treatment Not on filedocumented as of this encounter Visit Diagnoses Not on filedocumented in this encounter Care Teams Fraud Investigator Relationship Specialty Start Date End Date Jose Holden MD PCP - General Otolaryngology 12/14/17 [address] [place] [address] documented as of this encounter
--- OUTSIDE RECORDS SUMMARY | 2022-09-20 14:21 | XMS_ITS | Encounter Summary ---
:1965 Author [facility] Address [address] [place] [address] Care Team Providers Name Role Phone Jose Holden MD Primary Care Provider [phone] Reason for Referral Procedure/Equipment (Routine) - Closed Specialty Diagnoses / Procedures Referred By Contact Refer red To Contact Diagnoses Dizziness Concussion with loss of consciousness of 30 minutes or less, subsequent encounter Alyse Carias, PT [address] [place] [address] Referral ID Status Reason Start Date Expiration Date Visits Requ ested Visits Authorized [id number] Closed 03/06/2019 06/04/2020 20 20 Scheduling Instructions . Reason for Visit Reason Comments Concussion Therapies (Routine) - Closed Specialty Diagnoses / Procedures Referred By Contact Refer red To Contact Diagnoses Impairment of balance Dizziness Blanka Mead, PARK MAINTENANCE TECHNICIAN, CN P [address] [place] [address] Referral ID Status Reason Start Date Expiration Date Visits Requ ested Visits Authorized [id number] Closed 02/16/2019 04/17/2019 1 1 Encounter Details Date Type Department Care Team Description 03/06/2019 Office Visit Alyse Bee Dizziness (Primary Dx); [facility], PT Concussion with loss of consciousness of 30 minutes or less, subsequent encounter Physical Therapy [address] [place] [address] [id number] Social History Tobacco Use Types Packs/Day Years [...] impacting her status (scheduled for surgery at [place] on 02/28/19). Tinnitus- scheduled for hearing assessment [...] ER right away. She was seen at [facility]. ?? She has a past medical history [...] limited function due to PMH Lives in [place]. Independent with ADLs, driving. Current Level of Function: Currently not-employed. Lives alone in apartment. Difficulty bending down She does endorse LOS in home setting. Previous Therapy for This Condition: PT for neck (01/23/19- refaxed orders) Patient Goals: Return to previous level of function and Increased function OBJECTIVE Posture/Observations: alert, oriented, cooperative. forward head posturing. Carrying multiple bags and able to picker machine operator from floor to chair [...] within her allowable cervical ROM). Access Code: [email or web address] URL: [email or web address] Date: 03/06/2019 Prepared by: Alyse Carias Exercises Standing Gaze Stabilization with Head Rotation - 1-3 reps - 30-40 seconds - 3x daily - 7x weekly Education regarding Rule of 2 -Discussed option of closer location to her home yet noted she would be able to attend at [facility]. Patient's Response to Therapy: [...] encounter documented in this encounter Care Teams Supervisor Rough End Relationship Specialty Start Date End Date Jose Holden MD PCP - General Otolaryngology 12/14/17 [facility] [place] [address] documented as of this encounter
--- OUTSIDE RECORDS SUMMARY | 2022-09-20 14:21 | XMS_ITS | Encounter Summary ---
:1965 Author Organization [facility] Address [address], [place] [address] Care Team Providers Name Role Phone Jose Holden MD Primary Care Provider [phone] Reason for Visit Reason Comments Revisit trigger point injections/occ ipital nerve blocks Encounter Details Date Type Department Care Team Description 03/06/2019 Office Visit [facility], Bilateral occ ipital neuralgia (Primary Dx); [facility] Carole Bowden Myalgia; Pain Management [address] Cervical vertebral fusion; [address] [place], [place] Spondylosis of cervical princess on [place] [address] [phone] Social History Tobacco Use Types Packs/Day Years [...] treatment plan is, please contact me via [employer] online messaging or call the office at and ask to speak to a nurse. Tony Pittman MD Pain Medicine documented in this encounter Progress Notes Tony Pittman MD - 03/06/2019 2:45 PM CDT [facility] Follow-up Visit 03/06/2019 Interim [...] Oxycodone 5 mg Q6H - Prescribes by [facility], has been taking for [...] at a pain clinic in the past. [facility] physical therapy: Past Acupuncture: [...] ??? medical cannabis patient certified Take 1 Roy by mouth . ??? naloxone (NARCAN) 4 [...] facility-administered medications prior to visit. [place] and [place] Prescription Monitoring Program reviewed Allergies: [...] in her mother. Social history:she lives in [place], [place].she is not currently working. Smokin/2 ppd. [...] limited. Significant posterior surgical deformity of neck. Lift Truck Operator to palpation bilateral levator scapulae, splenius, trapezius [...] are unchanged from previous. Barriers: 1. senior living opioid use Plan: 1. Patient education: I [...] MD Pain Medicine Physical Medicine and Rehabilitation [facility] Pain Management This note created [...] myelopathy documented in this encounter Care Teams Show Design Supervisor Relationship Specialty Start Date End Date Jose Holden MD PCP - General Otolaryngology 12/14/[address] [place] [address] documented as of this encounter
--- OUTSIDE RECORDS SUMMARY | 2022-09-20 14:21 | XMS_ITS | Encounter Summary ---
:1965 Author Organization [facility] Address [address] [place] [address] Care Team Providers Name Role Phone Jose Holden MD Primary Care Provider [phone] Encounter Details Date Type Department Care Team Description 03/06/2019 Consent for [facility] Procedure/Treat [facility] Tony Alvarado MD [facility] ent Pain Management [address] TREATMENT [address] [place] [address] [phone] Social History Tobacco Use Types Packs/Day Years [...] filedocumented in this encounter Care Teams Engineering Model Maker Relationship Specialty Start Date End Date Jose Holden MD PCP - General Otolaryngology 12/14/[address] [place] [address] documented as of this encounter
--- OUTSIDE RECORDS SUMMARY | 2022-09-20 14:21 | XMS_ITS | Encounter Summary ---
:1965 Author Organization [facility] Address [address] [place] [address] Care Team Providers Name Role Phone Jose Holden MD Primary Care Provider [phone] Encounter Details Date Type Department Care Team Description 04/09/2019 Notes/Orders [facility] Neuroscience Jose Carias, Center Laborer Laboratory apy PT [address] [place] [address] [place] [address] [phone] (Wo rk) Social History Tobacco Use Types [...] CDT PHYSICAL THERAPY DISCHARGE NOTE Angie Mosquera [phone] Payor: MEDICARE / Plan: MEDICARE / Product [...] on filedocumented in this encounter Care Teams Boiler Tube Reamer Relationship Specialty Start Date End Date Jose Holden MD PCP - General Otolaryngology 12/14/17 [place] [address] documented as of this encounter
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
--- OUTSIDE RECORDS SUMMARY | 2022-09-20 14:27 | XMS_ITS | Encounter Summary ---
:1965 Author Organization [facility] Address [address] [place] [address] Care Team Providers Name Role Phone Elsewhere, Pcp Primary Care Provider Unavailable Reason for Visit Reason Comments OPAT Normal labs Encounter Details Date Type Department Care Team Description 02/09/2022 Clinical Communication Section of Ruth Eddy (Normal labs) Infectious T, R.N. Diseases in [address] [place] [phone] [place] [address] [place], [place] (Work) [phone] Social History Tobacco Use Types Packs/Day Years [...] you attend worship or Patient refused 2021 moravian services? Do [...] Provider: Dennis TA [facility], phone: [phone], fax: [phone] Labs and site care at [facility], phone: [phone] Antimicrobial(s) currently prescribed: See Med List Hyperlink [...] documented as of this encounter Care Teams Fuller Brush Worker Relationship Specialty Start Date End Date Elsewhere, Pcp PCP - General Family Medicine 12/25/21 documented as of this encounter
--- OUTSIDE RECORDS SUMMARY | 2022-09-20 14:27 | XMS_ITS | Encounter Summary ---
:1965 Author Organization [facility] Address [address] [place] [address] Care Team Providers Name Role Phone Elsewhere, Pcp Primary Care Provider Unavailable Reason for Visit Reason Comments OPAT Monitoring Complete Encounter Details Date Type Department Care Team Description 02/12/2022 Clinical Communication Section of Kylie Siddiqui (Monitoring Infectious Diseases M, R.N. Complete) in [facility] [phone] [place] (Work) [address] [place] [phone] Social History Tobacco Use Types Packs/Day Years [...] you attend religious or Patient refused 2021 presybeterian services? Do [...] Complete) Information Discussed Princess, a nurse from [place], called to see if any labs need [...] documented as of this encounter Care Teams Infantry Operations Specialist Relationship Specialty Start Date End Date Elsewhere, Pcp PCP - General Family Medicine 12/25/21 documented as of this encounter
--- OUTSIDE RECORDS SUMMARY | 2022-09-20 14:27 | XMS_ITS | Encounter Summary ---
:1965 Author Organization [facility] Address [address] [place] [address] Care Team Providers Name Role Phone Elsewhere, Pcp Primary Care Provider Unavailable Reason for Visit Reason Comments OPAT Intervention Encounter Details Date Type Department Care Team Description 01/28/2022 Clinical Communication Section of Ruth Eddy (Intervention Infectious T, R.N. ) Diseases in [address] [place] [phone] [place] [address] [place], [place] (Work) [phone] Social History Tobacco Use Types Packs/Day Years [...] you attend muslim or Patient refused 2021 tenriism services? Do [...] are for now to obtain ALP trend. RIST DYER Telephone Encounter - Desirae Domingo RBrittonN. - 02/01/2022 12:11 PM CST Maritza calls from [place] regarding Alk phos from 01/28. It is greater than 1.5 the upper limit of normal. RIST DYER Telephone Encounter - Su Greene, Pharm.D., R.Ph. - 01/29/2022 8:49 AM CST Reviewed WBC trend including WBC on 01/28, no changes at this time, see note from my colleague Jennifer Roca for details. RIST DYER Telephone Encounter - Ruth Eddy R.N. - 01/29/2022 8:14 AM CST OPAT NOTE ?? Infusion Provider: [facility], phone: [phone], fax: [phone] Labs and site care at [facility], phone: [phone] Antimicrobial(s) currently prescribed: See Med List Hyperlink in note Firm stop date: 02/11/22 ?? Lab results from are viewable in the MCR record--listed as External Labs (received via fax, which has been uploaded to Document Viewer/Media) ?? Interpretation and action: The labs were reviewed. WBC and ANC are improving. I will send this to the provider for review. RIST DYER Telephone Encounter - Jennifer Roca Pharm.D., R.Ph. - 01/28/2022 10:21 AM COLORIST DYER Pertinent labs and antimicrobial regimen as indicated [...] time. For monitoring: continue weekly OPAT labs. RIST DYER Telephone Encounter - Ruth Eddy RBrittonN. - 01/28/2022 9:40 AM CST OPAT NOTE Infusion Provider: [facility], phone: [phone], fax: [phone] Labs and site care at [facility], phone: [phone] Antimicrobial(s) currently prescribed: See Med List Hyperlink in note Firm stop date: 02/11/22 Lab results from 01/21/2022 are viewable in the MCR record--listed as External Labs (received via fax, which has been uploaded to Document Viewer/Media) Interpretation and action: The labs were reviewed. WBC is 3.6 and ANC is 1.42. Alk Phos was not done. Labs will be forwarded [facility] for review. Orders were sent to [facility] that included alk phos that will be drawn today, 01-28-2022. RIST DYER documented in this encounter Plan of Treatment Not on filedocumented as of this encounter Procedures Procedure Name Priority Date/Time Associated Comments Diagnosis CBC WITH DIFFERENTIAL, B Routine 01/28/2022 3:00 Results for this PM COLORIST DYER procedure are i n the results section. ALANINE AMINOTRANSFERASE Routine 01/28/2022 3:00 Results for this (ALT), S/P PM COLORIST DYER procedure are i n the results section. ALKALINE PHOSPHATASE, Routine 01/28/2022 3:00 Res ults for this S/P PM COLORIST DYER procedure are i n the results section. CREATININE WITH EGFR, Routine 01/28/2022 3:00 Res ults for this S/P PM COLORIST DYER procedure are i n the results section. [...] Results ALT (Alanine Aminotransferase) (01/28/2022 3:00 PM COLORIST DYER) athologist Signature EXT ALT 20 4 - 35 [facility] Specimen (Source) Anatomical Location Collection Method / Collectio n Time Received Time / Laterality Volume Blood (Blood, Venous) Laly Ward APRN C.N.P. LAB BLOOD ADD-ON Performing Organization Address City/State/ZIP Code Phon e Number [facility] (ABNORMAL) Alkaline Phosphatase (01/28/2022 3:00 PM COLORIST DYER) athologist Signature EXT Alkaline 97 (A) 40 - 50 [facility] Phosphatase LAB Specimen (Source) Anatomical Location Collection Method / Collectio n Time Received Time / Laterality Volume Blood (Blood, Venous) Laly Ward APRN, C.N.P. LAB BLOOD ADD-ON Performing Organization Address City/State/ZIP Code Phon e Number [facility] Creatinine with Estimated GFR (01/28/2022 3:00 PM COLORIST DYER) athologist Signature EXT Creatinine 0.6 0.5 - [...] CBC with Differential, Blood (01/28/2022 3:00 PM COLORIST DYER) Analysis Performed At Patho logist Time Signature [...] documented as of this encounter Care Teams Piece Jobber Relationship Specialty Start Date End Date Elsewhere, Pcp PCP - General Family Medicine 12/25/21 documented as of this encounter
--- OUTSIDE RECORDS SUMMARY | 2022-09-20 14:27 | XMS_ITS | Encounter Summary ---
:1965 Author Organization [facility] Address [address] [place] [address] Care Team Providers Name Role Phone Elsewhere, Pcp Primary Care Provider Unavailable Reason for Referral Outpatient (Routine) - Closed Specialty Diagnoses / Procedures Referred By Contact Refer red To Contact Diagnoses Arthroplasty Total Shoulder Replacement Status Post Left Alfredo Herrera O.P.A.-C. [facility] Procedures DX Shoulder Left Ingrowth Series 5 Views [address] [place] [address] [phone] Referral ID Status Reason Start Date Expiration Date Visits Requ ested Visits Authorized [id number] Closed 02/25/2022 02/25/2023 1 1 Outpatient (Routine) - Closed Specialty Diagnoses / Procedures Referred By Contact Refer red To Contact Orthopedic Surgery Diagnoses Arthroplasty Total Shoulder Replacement Status Post Left Alfredo Herrera [facility] Anh [address] [place] [address] Referral ID Status Reason Start Date Expiration Date Visits Requ ested Visits Authorized [id number] Closed 02/25/2022 02/25/2023 1 1 Scheduling Instructions 6 wk f/u L TSA Reason for Visit Reason Comments Pre-visit Testing Orders Encounter Details Date Type Department Care Team Description 02/25/2022 Clinical Communication Department of Jam, Pre- visit Testing Orthopedic Surgery Cyrus Souza M.D. Orders in [place], [address] [place], [place] [address] [facility] [address] [place], [place] [phone] (Work) [phone] Social History Tobacco Use Types Packs/Day Years [...] you attend gnosticist or Patient refused 2021 christianity services? Do [...] Associated Diagnoses Order S [facility] Orthopedic Surgery Outpatient Referral Routine Arthroplasty To [...] as of this encounter Care Teams Director Translation Relationship Specialty Start Date End Date Elsewhere, Pcp PCP - General Family Medicine 12/25/21 documented as of this encounter
--- OUTSIDE RECORDS SUMMARY | 2022-09-20 14:27 | XMS_ITS | Encounter Summary ---
:1965 Author Organization [facility] Address [address] [place] [address] Care Team Providers Name Role Phone Elsewhere, Pcp Primary Care Provider Unavailable Reason for Visit Outpatient (Routine) - Closed Specialty Diagnoses / Procedures Referred By Contact Refer red To Contact Orthopedic Surgery Diagnoses Pain Shoulder Left Alfredo Herrera, [facility] O[facility]A.-C. [address] [place] [address] Referral ID Status Reason Start Date Expiration Date Visits Requ ested Visits Authorized [id number] Closed 12/30/2021 12/30/2022 1 1 Encounter Details Date Type Department Care Team Description 02/25/2022 Office Visit Department of Orthopedic Cyrus Polk , Pain Shoulder Left Surgery in [facility] [address] [facility] [address] [place] [phone] Social History Tobacco Use Types Packs/Day Years [...] you attend congregational or Patient refused 2021 uatsdin services? Do you belong to any clubs or No 05/17/2022 organizations such as congregational groups, [employer], [employer] or athletic groups, or school groups? How [...] may involve the use of a medical information officer made by a company withMarginLeftvidya I or one of my partners have collaborated to design, develop, or improve orthopedic implants, instruments, or products. Both the [facility] and the individual surgeons involved receive royalty payments from the use of those specific devices at other institutions, but no royalties or any other payments are paid for the use of those devices with any [facility] patient. The clinical rationale for the use of those devices as well as the availability and applicability of alternative devices was reviewed. He understands that the final decision for the use of a specific medical information officer often is made at the time of [...] as of this encounter Care Teams Business Unit Manager Relationship Specialty Start Date End Date Elsewhere, Pcp PCP - General Family Medicine 12/25/21 documented as of this encounter
--- OUTSIDE RECORDS SUMMARY | 2022-09-20 14:27 | XMS_ITS | Encounter Summary ---
:1965 Author Organization [facility] Address 200 [place] [address] Care Team Providers Name Role Phone Elsewhere, Pcp Primary Care Provider Unavailable Reason for Visit Reason Comments Labs Only Encounter Details Date Type Department Care Team Description 02/05/2022 Documentation Section of Infectious Anma Kaur , Labs Only Diseases in [facility] 200 [facility] 200 [place] [phone] Social History Tobacco Use Types Packs/Day Years [...] you attend jainism or Patient refused 2021 catholic services? Do [...] PM CST Labs entered at this time. LEGALS documented in this encounter Plan of Treatment Not on filedocumented as of this encounter Procedures Procedure Name Priority Date/Time Associated Comments Diagnosis CBC WITH DIFFERENTIAL, B Routine 02/04/2022 3:06 Results for this PM PARALEGALS procedure are i n the results section. ALANINE AMINOTRANSFERASE Routine 02/04/2022 3:06 Results for this (ALT), S/P PM PARALEGALS procedure are i n the results section. ALKALINE PHOSPHATASE, Routine 02/04/2022 3:06 Res ults for this S/P PM PARALEGALS procedure are i n the results section. CREATININE WITH EGFR, Routine 02/04/2022 3:06 Res ults for this S/P PM PARALEGALS procedure are i n the results section. documented in this encounter Results ALT (Alanine Aminotransferase) (02/04/2022 3:06 PM PARALEGALS) P athologist Signature EXT ALT 20 4 - 35 OTHER (SPECIFY IN COTTON WEIGHER OPERATOR) Specimen (Source) Anatomical Location Collection Method / Collectio n Time Received Time / Laterality Volume Blood (Blood, Venous) Resulting Agency Comment [facility] Abinash Madeleine M.D. LAB BLOOD ADD-ON Performing Organization Address City/State/ZIP Code Phon e Number OTHER (SPECIFY IN COTTON WEIGHER OPERATOR) OTHER (SPECIFY IN COTTON WEIGHER OPERATOR) N/A Alkaline Phosphatase (02/04/2022 3:06 PM PARALEGALS) P athologist Signature EXT Alkaline 102 40 - 150 OTHER (SPECIFY Phosphatase IN COTTON WEIGHER OPERATOR) Specimen (Source) Anatomical Location Collection Method / Collectio n Time Received Time / Laterality Volume Blood (Blood, Venous) Resulting Agency Comment [facility] Gucci Salvaodr M.D. LAB BLOOD ADD-ON Performing Organization Address City/[facility] Phon e Number OTHER (SPECIFY IN COTTON WEIGHER OPERATOR) OTHER (SPECIFY IN COTTON WEIGHER OPERATOR) N/A Creatinine with Estimated GFR (02/04/2022 3:06 PM PARALEGALS) P athologist Signature EXT Creatinine 0.7 0.5 - 1.5 OTHER (SPECIFY mg/dL IN COTTON WEIGHER OPERATOR) Specimen (Source) Anatomical Location Collection Method / Collectio n Time Received Time / Laterality Volume Blood (Blood, Venous) Resulting Agency Comment [facility] Gucci Salvador M.D. LAB BLOOD ADD-ON Performing Organization Address City/[facility]/ZIP [facility] Phon e Number OTHER (SPECIFY IN COTTON WEIGHER OPERATOR) OTHER (SPECIFY IN COTTON WEIGHER OPERATOR) N/A (ABNORMAL) CBC with Differential, Blood (02/04/2022 3:06 PM PARALEGALS) P athologist Signature EXT Platelet 253 150 - 450 OTHER Count (SPECIFY IN COTTON WEIGHER OPERATOR) EXT Hemoglobin 9.1 (A) 12 - 15.5 OTHER (SPECIFY IN COTTON WEIGHER OPERATOR) EXT White Blood 4.0 (A) 5.0 - 10.0 OTHER Cell (WBC) (SPECIFY IN Count COTTON WEIGHER OPERATOR) Specimen (Source) Anatomical Location Collection Method / Collectio n Time Received Time / Laterality Volume Blood (Blood, Venous) Narrative This result has an attachment that is no t available. Resulting Agency Comment [facility] Gucci Salvador M.D. LAB BLOOD ADD-ON Performing Organization Address City/[facility]/ZIP [facility] Phon e Number OTHER (SPECIFY IN COTTON WEIGHER OPERATOR) OTHER (SPECIFY IN COTTON WEIGHER OPERATOR) N/A documented in this encounter Visit Diagnoses Not on filedocumented in this encounter Additional Health Concerns Assessment Noted Time PHQ-9 Depression Total Score: 16 02/11/2021 12:00 AM C DT documented as of this encounter Care Teams Director Of Search Engine Optimization Relationship Specialty Start Date End Date Elsewhere, Pcp PCP - General Family Medicine 12/25/21 documented as of this encounter
--- OUTSIDE RECORDS SUMMARY | 2022-09-20 14:27 | XMS_ITS | Encounter Summary ---
:1965 Author Organization [facility] Address [address] [place] [address] Care Team Providers Name Role Phone Elsewhere, Pcp Primary Care Provider Unavailable Reason for Visit Reason Comments OPAT Lab request Encounter Details Date Type Department Care Team Description 01/26/2022 Clinical Communication Section of Ruth Eddy (Lab request) Infectious T, R.N. Diseases in [address] [place] [phone] [place] [address] [place], [place] (Work) [phone] Social History Tobacco Use Types Packs/Day Years [...] you attend zoroastrian or Patient refused 2021 yarsanism services? Do [...] Eddy RRebekah. - 01/26/2022 4:13 PM CST [facility], phone: [phone] was called and message left to fax us lab results. Our fax and phone number was given. SIDE GRINDER documented in this encounter Plan of Treatment Not on filedocumented as of this encounter Visit Diagnoses Not on filedocumented in this encounter Additional Health Concerns Assessment Noted Time PHQ-9 Depression Total Score: 16 02/11/2021 12:00 AM C DT documented as of this encounter Care Teams Wire Tinner Relationship Specialty Start Date End Date Elsewhere, Pcp PCP - General Family Medicine 12/25/21 documented as of this encounter
--- OUTSIDE RECORDS SUMMARY | 2022-09-20 14:27 | XMS_ITS | Encounter Summary ---
:1965 Author Organization [facility] Address [address] [place] [address] Care Team Providers Name Role Phone Elsewhere, Pcp Primary Care Provider Unavailable Reason for Referral MRI/CAT/PET Scan (Routine) - Closed Specialty Diagnoses / Procedures Referred By Contact Refer red To Contact Radiology Diagnoses Painful Total Joint Arthroplasty Initial ([facility]) Michael Chino M.D. [facility] Procedures CT Shoulder Left without IV Contrast [address] [place] [address] Referral ID Status Reason Start Date Expiration Date Visits Requ ested Visits Authorized [id number] Closed 02/25/2022 02/25/2023 1 1 Encounter Details Date Type Department Care Team Description 02/25/2022 Orders Only Department of Michael Chino Painful T otal Joint Orthopedic Surgery in [place].Neri Arthro plasty Initial [place], [place] ([facility]) [address] [place] [address] Social History Tobacco Use Types Packs/Day Years [...] you attend episcopal or Patient refused 2021 voodoo services? Do you belong to any clubs or No 05/17/2022 organizations such as episcopal groups, Cl[employer], [employer] or athletic groups, or school groups? How [...] documented as of this encounter Care Teams Manifold Operator Relationship Specialty Start Date End Date Elsewhere, Pcp PCP - General Family Medicine 12/25/21 documented as of this encounter
--- OUTSIDE RECORDS SUMMARY | 2022-09-20 14:27 | XMS_ITS | Encounter Summary ---
:1965 Author Organization [facility] Address [address] [place] [address] Care Team Providers Name Role Phone Elsewhere, Pcp Primary Care Provider Unavailable Reason for Referral Outpatient (Routine) - Authorized Specialty Diagnoses / Procedures Referred By Contact Refer red To Contact Diagnoses Chart Picker Antibiotic Treatment Tejal Medley MPAS, P.A.-C., M.S. [address] [place] [phone] Referral ID Status Reason Start Expiration Visits Visits Date Date Requested Authorized [id number] Authorized Patient 02/08/2022 02/08/2023 1 1 Preference Reason for Visit Reason Comments OPAT Care Coordination Encounter Details Date Type Department Care Team Description 02/08/2022 Clinical Communication Section of Desirae Domingo (Care Infectious Diseases M, R.N. Coordination) in [place], [address] [place] [address] [place] [phone] [place], [place] [phone] (Work) [phone] Social History Tobacco Use Types Packs/Day Years [...] 05/17/2022 organizations such as hinduism groups, unions, fraWashio or athletic groups, or school groups? How [...] 02/08/2022 12:06 PM CDT Maritza calls from [facility]. [employer] stop date of 02/11 for IV antibiotics. Maritza requests order be faxed to [facility] where patient has labs and PICC site care done. I called the [facility], .Pull PIC order can be faxed to [phone]. documented in this encounter Plan of Treatment Not on filedocumented as of this encounter Visit Diagnoses Diagnosis Correction Antibiotic Treatment - Primary documented in this encounter Additional Health Concerns Assessment Noted Time PHQ-9 Depression Total Score: 16 02/11/2021 12:00 AM C DT documented as of this encounter Care Teams Cut Pressman Relationship Specialty Start Date End Date Elsewhere, Pcp PCP - General Family Medicine 12/25/21 documented as of this encounter
--- OUTSIDE RECORDS SUMMARY | 2022-09-20 14:27 | XMS_ITS | Encounter Summary ---
:[address] [facility] Address [address] [place] [address] Care Team Providers Name Role Phone Elsewhere, Pcp Primary Care Provider Unavailable Reason for Visit Reason Comments OPAT Care Coordination Encounter Details Date Type Department Care Team Description 01/22/2022 Clinical Communication Section of Steven Dennis (Care Infectious Diseases E, R.N. Coordination) in [place], [facility] [place], [place] [address] [place] [address] [place], [place] [phone] (Work) [phone] Social History Tobacco Use Types Packs/Day Years [...] you attend mu-ism or Patient refused 2021 latter-day services? Do [...] IR. ??Is she able to come to [place] for IR PICC placement? ??If not, we'll [...] I spoke to Carolynn, the nurse at [facility]. She spoke to their wound care nurse and she would liketo try some different dressings first before they move the PICC to the chest. They cannot place a PICC in the chest in [place], so if needed, the patient would have to come to [place]. The patientwill be there at 2 pm today. She will call back with the patient so we all can come up with a plan together. Addendum: We missed a call from Carolynn, infusion nurse at [facility]. Her message stated that PICCsite care was performed and the site looks better. The wound care team has a plan and is hoping thatshe can keep her current PICC. RNAL MEDICINE NURSE Telephone Encounter - Tejal Rudolph R.N. - 01/22/2022 4:46 PM INTERNAL MEDICINE NURSE I have been unable to reach the patient, but I notified nurse Carolynn at [facility] of Dr. Boris Chaidez's recommendation, that they could try moving the line to the other arm and use a midline but avoid a chest PICC. I faxed the order for midline placement. Nurse Carolynn at [place] questioned whether the midline could be moved to the other (left) arm, because patient wears a sling on that arm. RNAL MEDICINE NURSE Telephone Encounter - Steven Dennis R.N. - [...] She did get a special dressing from [facility] to use, but it doesn't seem to be helping. Dressing was changed at [facility] today and they applied some guaze to help with the drainage. 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
--- OUTSIDE RECORDS SUMMARY | 2022-09-20 14:27 | XMS_ITS | Encounter Summary ---
:1965 Author Organization [facility] Address [address] [place] [address] Care Team Providers Name Role Phone Elsewhere, Pcp Primary Care Provider Unavailable Reason for Referral MRI/CAT/PET Scan (Routine) - Closed Specialty Diagnoses / Procedures Referred By Contact Refer red To Contact Radiology Diagnoses Painful Total Joint Arthroplasty Initial ([facility]) Michael Chino M.D. [facility] Procedures CT Shoulder Left without IV Contrast 200 [place] [address] Referral ID Status Reason Start Date Expiration Date Visits Requ ested Visits Authorized [id number] Closed 02/25/2022 02/25/2023 1 1 Reason for Visit MRI/CAT/PET Scan (Routine) - Closed Specialty Diagnoses / Procedures Referred By Contact Refer red To Contact Radiology Diagnoses Painful Total Joint Arthroplasty Initial ([facility]) Michael Chino M.D. [facility] Procedures CT Shoulder Left without IV Contrast [address] [place] [phone] Referral ID Status Reason Start Date Expiration Date Visits Requ ested Visits Authorized [id number] Closed 02/25/2022 02/25/2023 1 1 Encounter Details Date Type Department Care Team Description 02/25/2022 Hospital Encounter Department of Michael Chino Total Joint Radiology, Severiano Celaya M.D. Arthropl [facility]) [place], [place] [address] [place] [address] Social History Tobacco Use Types Packs/Day Years [...] attend roman catholic or Patient refused 2021 nondenominational services? Do [...] THC multivit-min/iron/folic/ Take 1 tablet by 0 [id number] (HAIR, SKIN AND mouth daily. NAILS ADVANCED [...] documented as of this encounter Care Teams Architectural Design Professor Relationship Specialty Start Date End Date Elsewhere, Pcp PCP - General Family Medicine 12/25/21 documented as of this encounter
--- OUTSIDE RECORDS SUMMARY | 2022-09-20 14:27 | XMS_ITS | Encounter Summary ---
:1965 Author Organization [facility] Address [address] [place] [address] Care Team Providers Name Role Phone Elsewhere, Pcp Primary Care Provider Unavailable Reason for Visit Outpatient (Routine) - Closed Specialty Diagnoses / Procedures Referred By Contact Refer red To Contact Infectious Diseases Diagnoses Aftercare Total Shoulder Arthroplasty [facility] 200 [place] [address] Referral ID Status Reason Start Date Expiration Date Visits Requ ested Visits Authorized [id number] Closed 01/01/2022 01/01/2023 1 1 Encounter Details Date Type Department Care Team Description 02/25/2022 Comprehensive Visit Section of Christiano Nixon M.D. 200 [place] [phone] Retail Merchandiser Technician Antibiotic Treatment (Primary Dx); Infectious Diseases Russell Santos M.D. 200 [place] [phone] Infection Shoulder Prosthesis Subsequent ; in [place], Direct Infecti on Of Left Shoulder In Infectious And Parasitic Diseases Classified Elsewhere ([facility]); [place] Aftercare Total Shoulder Art hroplasty [address] [place] [phone] Social History Tobacco Use Types Packs/Day [...] you attend gnosticist or Patient refused 2021 muslim services? Do [...] 56 y.o. Birthdate: 1965 Sex: female Address: [address] [place] [phone] Referring Provider: Jose Guadaulpe Nixon M.D. REASON FOR CONSULT We are [...] resistance on OSH AST. She presented to [facility] (unclear if on antibiotics) for further evaluation given persistent L shoulder pain 08/2021 prompting aspiration (09/25/21) which revealed elevated TNC (16474) with 81% PMNs with cultures positive for [...] thorough debridement.??The patient was subsequently admitted to [facility] for [...] is consistent with aspiration results from original [facility] evaluation which is likely sales representative trainee of the culprit organism causing her PJI. [...] of Infectious Diseases OPAT monitoring program at [phone] after dismissal. Primary service to follow labs while patient is hospitalized. [facility] pharmacist to adjust dosing after dismissal 4. [...] 150 mg by mouth every morning. ??? auxncsrqcl-aufeavojrgtub-xwwx (ESGIC) 50-325-40 mg per tablet Take 1 [...] 11 mo ago Resulting Agency CULTURE RESULT??Abnormal?? [facility] CULTURE 1+ Staphylococcus coagulase negative [facility] GRAM STAIN ? 1+ PMNs [facility] GRAM STAIN ? No organisms seen [facility] GRAM STAIN ? Gram stain performed by [facility], [facility] Susceptibility Organism Antibiotic Susceptibility Staphylococcus coagulase [...] DIAGNOSES #1 Infection Shoulder Prosthesis Subsequent #2 Senior Living Antibiotic Treatment #3 Direct Infection Of Left Shoulder In Infectious And Parasitic Diseases Classified Elsewhere (HCC) #4 Aftercare Total Shoulder Arthroplasty ORDERS Orders Placed This Encounter Procedures ??? Hepatic Function Panel ??? Basic Metabolic Panel Spent 36 minutes in total time both ubcn-nb-lxei and non cukh-ic-uaoz to face documented in this encounter Plan [...] 02/25/2022 DTL Black/ mL/min/BSA 11:19 AM CDT [place] Comment: ----ADDITIONAL INFORMATION---- Estimated GFR calculated using [...] M.D. LAB BLOOD ADD-ON Performing Organization Address City/State/[facility] Code Phon e Number [facility] - [address] [place] [phone] [facility] [place] [address] Laboratories-[facility] 200 [facility] Hepatic Function Panel (02/25/2022 10:09 AM CDT) [facility] gist Method Time Signature Bilirubin, Total, [...] [facility] - [address] [place], [place] [address] [facility] [place] [address] Laboratories-[facility] [address] documented in this encounter Visit Diagnoses Diagnosis Retail Merchandiser Technician Antibiotic Treatment - Primary Infection Shoulder Prosthesis Subsequent 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
--- OUTSIDE RECORDS SUMMARY | 2022-09-20 14:28 | XMS_ITS | Encounter Summary ---
:[address] [facility] Address [address] [place] [address] Care Team Providers Name Role Phone Elsewhere, Pcp Primary Care Provider Unavailable Encounter Details Date Type Department Care Team Description 01/05/2022 Clinical Communication Section of Infectious Ed , [facility] Diseases in [facility], UTILITY SALES AND SERVICE MANAGER, C.N.P. [place] 200 [facility] 200 [place] [phone] Social History Tobacco Use Types Packs/Day Years [...] you attend episcopal or Patient refused 2021 congregational services? Do [...] Ward APRN, C.N.P. - 01/05/2022 2:17 PM STONE AND CONCRETE WASHER Left shoulder synovial fluid culture from 12/30 has been reported for growth of oxacillin sensitive Staphylococcus epidermidis. No change recommended to the patient's current regimen of ceftriaxone. E AND CONCRETE WASHER Telephone Encounter - Laly Ward APRN, C.N.P. - 01/05/2022 2:17 PM STONE AND CONCRETE WASHER ----- Message from Su Greene, Pharm.D., R.Ph. sent at 01/05/2022 9:51 AM STONE AND CONCRETE WASHER ----- Patient with shoulder infection (with previous [...] changes please message RST IFD [facility] PHARMACIST pool. If urgent, page [phone] M-F 9am-5 pm E AND CONCRETE WASHER documented in this encounter Plan of Treatment Not on filedocumented as of this encounter Visit Diagnoses Not on filedocumented in this encounter Additional Health Concerns Assessment Noted Time PHQ-9 Depression Total Score: 16 02/11/2021 12:00 AM C DT documented as of this encounter Care Teams Audio Visual Engineer Relationship Specialty Start Date End Date Elsewhere, Pcp PCP - General Family Medicine 12/25/21 documented as of this encounter
--- OUTSIDE RECORDS SUMMARY | 2022-09-20 14:28 | XMS_ITS | Encounter Summary ---
:1965 Author Organization [facility] Address [address] [place] [address] Care Team Providers Name Role Phone Elsewhere, Pcp Primary Care Provider Unavailable Encounter Details Date Type Department Care Team Description 01/01/[address] [facility] Sapna Dodge C.Ph.T. 201 [facility] [phone] [place], [place] ([facility]) [phone] Social History Tobacco Use Types Packs/Day [...] you attend tenriism or Patient refused 2021 faith services? Do [...] documented as of this encounter Care Teams Medtronics Technician Relationship Specialty Start Date End Date Elsewhere, Pcp PCP - General Family Medicine 12/25/21 documented as of this encounter
--- OUTSIDE RECORDS SUMMARY | 2022-09-20 14:28 | XMS_ITS | Encounter Summary ---
:1965 Author Organization [facility] Address 200 [place] [address] Care Team Providers Name Role Phone Elsewhere, Pcp Primary Care Provider Unavailable Reason for Visit Reason Comments OPAT Intervention Encounter Details Date Type Department Care Team Description 01/07/2022 Clinical Communication Section of MATTHEW Tolbert (Intervention) Infectious Diseases [facility] [phone] 200 [facility] (Work) [place] [address] Social History Tobacco Use Types Packs/Day Years [...] you attend samaritan or Patient refused 2021 catholic services? Do [...] Dandy Reyes, Pharm.D. - 01/12/2022 9:38 AM PERFUSIONIST Pertinent labs and antimicrobial regimen as indicated [...] >0.3 mg/dL and absolute value >1.0 mg/dL. USIONIST Telephone Encounter - Steven Dennis R.N. - 01/12/2022 9:13 AM CST OPAT NOTE Infusion Provider: Dennis TA [facility], phone: [phone], fax: [phone] Labs and site care at [facility], phone: [phone] Antimicrobial(s) currently prescribed: See Med List Hyperlink in note Firm stop date: 02/11/22 Lab results from 01/07/22 are viewable in the MCR record--listed as External Labs (received via fax, which has been uploaded to Document Viewer/Media) Interpretation and action: Will send to the OPAT pharmacist to review the creatinine, which has decreased >30%. Alk phos wasnot drawn. USIONIST documented in this encounter Plan of Treatment Not on filedocumented as of this encounter Procedures Procedure Name Priority Date/Time Associated Comments Diagnosis CBC WITH DIFFERENTIAL, B Routine 01/07/2022 2:30 Results for this PM PERFUSIONIST procedure are i n the results section. ALANINE AMINOTRANSFERASE Routine 01/07/2022 2:30 Results for this (ALT), S/P PM PERFUSIONIST procedure are i n the results section. CREATININE WITH EGFR, Routine 01/07/2022 2:30 Res ults for this S/P PM PERFUSIONIST procedure are i n the results section. documented in this encounter Results ALT (Alanine Aminotransferase) (01/07/2022 2:30 PM PERFUSIONIST) P athologist Signature EXT ALT 10 4 - 35 [facility]) Specimen (Source) Anatomical Location Collection Method / Collectio n Time Received Time / Laterality Volume Blood (Blood, Venous) Laly Ward APRN, C.N.P. LAB BLOOD ADD-ON Performing Organization Address City/[facility] e [facility], [address] [place] [address] [facility]) Creatinine with Estimated GFR (01/07/2022 2:30 PM PERFUSIONIST) Analysis Performed At Patho logist Time Signature EXT Creatinine 0.5 0.5 - 1.5 [place] mg/dL [facility]) Specimen (Source) Anatomical Location Collection Method / Collectio n Time Received Time / Laterality Volume Blood (Blood, Venous) Narrative This result has an attachment that is no t available. Laly Ward APRN, C.N.P. LAB BLOOD ADD-ON Performing Organization Address City/[facility] Phon e Number [facility], [address] [place] [address] [phone] [facility]) (ABNORMAL) CBC with Differential, Blood (01/07/2022 2:30 PM PERFUSIONIST) [facility] gist Method Time Signature EXT Platelet 349 150 - 450 [facility], [facility]) EXT Eosinophils 0.28 0 - 0.5 [facility]) EXT Hemoglobin 8.7 (A) 12 - 15.5 [facility], [facility]) EXT Absolute 3.19 1.7 - 7 [place] Neutrophils [facility], [facility]) EXT White Blood 5.4 5.0 - [place] Cell (WBC) 10.0 [facility]) Specimen (Source) Anatomical Location Collection Method / Collectio n Time Received Time / Laterality Volume Blood (Blood, Venous) Narrative This result has an attachment that is no t available. Laly Ward APRN C.N.P. LAB BLOOD ADD-ON Performing Organization Address City/State/ZIP Code Phon e Number [facility], [address] [place] [address] [facility]) documented in this encounter Visit Diagnoses Not on filedocumented in this encounter Additional Health Concerns Assessment Noted Time PHQ-9 Depression Total Score: 16 02/11/2021 12:00 AM C DT documented as of this encounter Care Teams Industrial Cook Relationship Specialty Start Date End Date Elsewhere, Pcp PCP - General Family Medicine 12/25/21 documented as of this encounter
--- OUTSIDE RECORDS SUMMARY | 2022-09-20 14:28 | XMS_ITS | Encounter Summary ---
:1965 Author Organization [facility] Address [address] [place] [address] Care Team Providers Name Role Phone Elsewhere, Pcp Primary Care Provider Unavailable Reason for Referral Outpatient (Routine) - Closed Specialty Diagnoses / Procedures Referred By Contact Refer red To Contact Infectious Diseases Diagnoses Aftercare Total Shoulder Arthroplasty Jose Guadalupe Nixon [place] M.D. 200 [place] [address] Referral ID Status Reason Start Date Expiration Date Visits Requ ested Visits Authorized [id number] Closed 01/01/2022 01/01/2023 1 1 OMS AND IMMIGRATION OFFICER Reason for Visit Reason Comments OPAT Post Hospital Follow-up Encounter Details Date Type Department Care Team Description 01/01/2022 Clinical Communication RST HIM MATTHEW Nixon; Post Hospital 200 [facility] Jose Guadalupe Garcia M.D. Follow-up [place], [place] 200 [facility] [address] [place] [address] Social History Tobacco Use Types Packs/Day Years [...] M.D. LAB BLOOD ADD-ON Performing Organization Address City/State/[facility] Phon e Number [facility] - [address] [place] [address] [place] [phone] [address] CRP (C-Reactive Protein) (02/25/2022 10:09 AM CDT) P athologist Signature C-Reactive <3.0 <=8.0 mg/L 02/25/2022 D[place] Protein (CRP), 11:34 AM CDT S Specimen Anatomical Collection Method Collection Time Receive d Time (Source) Location / / Volume Laterality Blood (Blood, 02/25/2022 10:09 02/25/2022 Venous) AM CDT 11:00 AM CDT Jose Guadalupe Nixon M.D. LAB BLOOD ADD-ON Performing Organization Address [facility] Phon e Number [facility] - [address] [place] [address] (ABNORMAL) CBC with Differential, Blood (02/25/2022 [...] City/State/ZIP Code Phon e Number [facility] - [address] [place], [place] [address] [facility] [address] [facility] [address] documented in this encounter Visit Diagnoses Diagnosis Aftercare Total Shoulder Arthroplasty - Primary documented in this encounter Additional Health Concerns Assessment Noted Time PHQ-9 Depression Total Score: 16 02/11/2021 12:00 AM C DT documented as of this encounter Care Teams Media Buyer Relationship Specialty Start Date End Date Elsewhere, Pcp PCP - General Family Medicine 12/25/21 documented as of this encounter
--- OUTSIDE RECORDS SUMMARY | 2022-09-20 14:28 | XMS_ITS | Encounter Summary ---
:1965 Author Organization [facility] Address [address] [place] [address] Care Team Providers Name Role Phone Elsewhere, Pcp Primary Care Provider Unavailable Reason for Visit Reason Comments OPAT Normal Labs Encounter Details Date Type Department Care Team Description 01/15/2022 Clinical Communication Section of Madhav Rizo (Normal Labs) Infectious Diseases M, M.P.H., in [place] [address] [facility] [address] [place] [address] [phone] Social History Tobacco Use Types Packs/Day Years [...] you attend voodoo or Patient refused 2021 bahai services? Do [...] Rizo M.P.H., R.N. - 01/15/2022 3:24 PM OFFSET SECOND PRESS OPERATOR OPAT NOTE Infusion Provider: Dennis [facility] Specialty Infusion Services, phone: [phone], fax: [phone] Labs and site care at [facility], phone: [phone] Antimicrobial(s) currently prescribed: See Med List Hyperlink in note Firm stop date: 02/11/22 Lab results from 01/14/2022 are viewable in the MCR record--listed as External Labs (received via fax, which has been uploaded to Document Viewer/Media) Interpretation and action: The labs were satisfactory and acceptable. No change in plan as per OPAT Practice Guideline. ET SECOND PRESS OPERATOR documented in this encounter Plan [...] Signature EXT ALT 14 4 - 35 [facility] Specimen (Source) Anatomical Location Collection Method / Collectio n Time Received Time / Laterality Volume Blood (Blood, Venous) Laly Ward APRN, C.N.P. LAB BLOOD ADD-ON Performing Organization Address City/[facility]/ZIP Code Phon e Number [facility] [address] [place] [address] Creatinine with Estimated GFR (01/14/2022) athologist Signature EXT Creatinine 0.6 0.5 - 1.5 [place] mg/dL [facility] Specimen (Source) Anatomical Location Collection Method / Collectio n Time Received Time / Laterality Volume Blood (Blood, Venous) Laly Ward APRN, C.N.P. LAB BLOOD ADD-ON Performing Organization Address City/[facility]/ZIP [facility] Phon e Number [facility] [address] [place] [address] (ABNORMAL) CBC with Differential, Blood (01/14/2022) athologist Signature EXT Platelet 406 150 - 450 [place] Count [facility] EXT Hemoglobin 9 (A) 12 - 15.5 [facility] EXT Absolute 3.49 1.7 - 7 [place] Neutrophils [facility] EXT White Blood 5.7 5.0 - 10.0 [place] Cell (WBC) Count [facility] Specimen (Source) Anatomical Location Collection Method / Collectio n Time Received Time / Laterality Volume Blood (Blood, Venous) Narrative This result has an attachment that is no t available. Laly Ward APRN, C.N.P. LAB BLOOD ADD-ON Performing Organization Address City/[facility]/ZIP [facility] Phon e Number [facility] [address] [place] [address] documented in this encounter Visit Diagnoses Not on filedocumented in this encounter Additional Health Concerns Assessment Noted Time PHQ-9 Depression Total Score: 16 02/11/2021 12:00 AM C DT documented as of this encounter Care Teams Painter Chassis Relationship Specialty Start Date End Date Elsewhere, Pcp PCP - General Family Medicine 12/25/21 documented as of this encounter
--- OUTSIDE RECORDS SUMMARY | 2022-09-20 14:28 | XMS_ITS | Encounter Summary ---
:1965 Author Organization [facility] Address [address] [place] [address] Care Team Providers Name Role Phone Elsewhere, Pcp Primary Care Provider Unavailable Encounter Details Date Type Department Care Team Description 01/01/2022 Episode Changes Section of Infectious Lin Tadeo Diseases in [place], (Work ) [place] [address] [place] [address] Social History Tobacco Use Types Packs/Day [...] you attend restoration or Patient refused 2021 worship services? Do [...] documented as of this encounter Care Teams Calculus Teacher Relationship Specialty Start Date End Date Elsewhere, Pcp PCP - General Family Medicine 12/25/21 documented as of this encounter
--- OUTSIDE RECORDS SUMMARY | 2022-09-20 14:28 | XMS_ITS | Encounter Summary ---
:1965 Author Organization [facility] Address [address] [place] [address] Care Team Providers Name Role Phone Elsewhere, Pcp Primary Care Provider Unavailable Encounter Details Date Type Department Care Team Description 01/08/2022 Clinical Communication Pharmacy Prior Auth ОЛЬГА Carrera M.D. [phone] Social History Tobacco Use Types Packs/Day Years [...] you attend quaker or Patient refused 2021 yarsani services? Do [...] Camelia CINTRON. Thank you, The OPPA Team CIPAL INVESTIGATOR documented in this encounter Plan of Treatment Not on filedocumented as of this encounter Visit Diagnoses Not on filedocumented in this encounter Additional Health Concerns Assessment Noted Time PHQ-9 Depression Total Score: 16 02/11/2021 12:00 AM C DT documented as of this encounter Care Teams Exploration Driller Relationship Specialty Start Date End Date Elsewhere, Pcp PCP - General Family Medicine 12/25/21 documented as of this encounter
--- OUTSIDE RECORDS SUMMARY | 2022-09-20 14:28 | XMS_ITS | Encounter Summary ---
:1965 Author Organization [facility] Address [address] [place] [address] Care Team Providers Name Role Phone Elsewhere, Pcp Primary Care Provider Unavailable Encounter Details Date Type Department Care Team Description 01/08/2022 Orders Only Pharmacy Prior Auth RO Elsewhere, Pcp [phone] Social History Tobacco Use Types Packs/Day Years [...] you attend temple or Patient refused 2021 mosque services? Do [...] documented as of this encounter Care Teams Pitch Worker Relationship Specialty Start Date End Date Elsewhere, Pcp PCP - General Family Medicine 12/25/21 documented as of this encounter
--- OUTSIDE RECORDS SUMMARY | 2022-09-20 14:30 | XMS_ITS | Encounter Summary ---
:1965 Author Organization [facility] Address [address] [place] [address] Care Team Providers Name Role Phone Unavailable Primary Care Provider Unavailable Reason for Visit Reason Comments Pre-visit Intake Encounter Details Date Type Department Care Team Description 03/11/2021 Clinical Communication Department of [facility], Pre- visit Intake Neurologic Surgery Lilian Jang, in [place], Ph.D. [address] [place] [address] [phone] Social History Tobacco Use Types Packs/Day Years [...]
--- OUTSIDE RECORDS SUMMARY | 2022-09-20 14:30 | XMS_ITS | Encounter Summary ---
:1965 Author Organization [facility] Address [address] [place] [address] Care Team Providers Name Role Phone Unavailable Primary Care Provider Unavailable Reason for Visit Reason Comments Post Hospital Follow-up Encounter Details Date Type Department Care Team Description 02/19/[address] [facility] Post Hospital Neurology in Monica Alvarado R.N. Follow-up [place], [place] [address] [place] [phone] Social History Tobacco Use Types Packs/Day [...] you attend zoroastrian or Patient refused 2021 restorationism services? Do [...] reports she has not yet picked up [id number] ASA daily and 80 mg Atorvastatin at [...]
--- OUTSIDE RECORDS SUMMARY | 2022-09-20 14:30 | XMS_ITS | Encounter Summary ---
:1965 Author Organization [facility] Address [address] [place] [address] Care Team Providers Name Role Phone Unavailable Primary Care Provider Unavailable Reason for Visit Outpatient (Routine) - Closed Specialty Diagnoses / Procedures Referred By Contact Refer red To Contact Neurological Surgery Jeannette Cote [place] [address] [place] M.D. [address] [place] [address] Referral ID Status Reason Start Date Expiration Date Visits Requ ested Visits Authorized [id number] Closed 02/17/2021 02/17/2022 1 1 Encounter Details Date Type Department Care Team Description 03/12/2021 Office Visit Department of Gonzalez Benjamin Debra tebral Neurologic Surgery in [place] Jang, Cinthya castorena ([facility]) (Primary [place], [place] Ph.D. Dx) [address] [place] [address] [place] [phone] Social History Tobacco Use Types Packs/Day [...] you attend sabianism or Patient refused 2021 jain services? Do you belong to any clubs or No 05/17/2022 organizations such as sabianism groups, unions, [email or web address] or athletic groups, or school groups? How [...]
--- OUTSIDE RECORDS SUMMARY | 2022-09-20 14:30 | XMS_ITS | Encounter Summary ---
:1965 Author Organization [facility] Address [address] [place] [address] Care Team Providers Name Role Phone Unavailable Primary Care Provider Unavailable Reason for Visit Reason Comments Vertigo and vision problems [facility] Encounter Details Date Type Department Care Team Description 02/18/2021 Clinical Communication Department of Fazal, Robert mendosa and vision Neurology jimmy Celaya M.D. problems ([facility]) [place], [facility] [address] [place], [place] [address] [place] [phone] [place], [place] [phone] (Work) [phone] Social History Tobacco Use Types Packs/Day Years [...] you attend voodoo or Patient refused 2021 jew services? Do [...]
--- OUTSIDE RECORDS SUMMARY | 2022-09-20 14:30 | XMS_ITS | Encounter Summary ---
:1965 Author Organization [facility] Address [address] [place] [address] Care Team Providers Name Role Phone Unavailable Primary Care Provider Unavailable Reason for Visit Reason Comments Pre-scheduling Questionnaire Hand Pre-Scheduling Qu estionnaire Encounter Details Date Type Department Care Team Description 03/16/2021 Clinical Department of Prescheduling, Pre-scheduli ng Communication Orthopedic Surgery Provider Question elizabeth ( in [place], Hand Pre-Sched [facility] Questionnaire) [address] [place] [phone] Social History Tobacco Use Types Packs/Day Years [...] you attend confucianism or Patient refused 2021 gnosticism services? Do [...]
--- OUTSIDE RECORDS SUMMARY | 2022-09-20 14:30 | XMS_ITS | Encounter Summary ---
:1965 Author Organization [facility] Address [address] [place] [address] Care Team Providers Name Role Phone Unavailable Primary Care Provider Unavailable Reason for Referral Outpatient (Routine) - Closed Specialty Diagnoses / Procedures Referred By Contact Refer red To Contact Neurological Surgery [facility] [place] [address] [place] [address] Referral ID Status Reason Start Date Expiration Date Visits Requ ested Visits Authorized [id number] Closed 02/17/2021 02/17/2022 1 1 Scheduling Instructions Please schedule with Chief A Neurosurger y Service (Dr. Suhail Benjamin). 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 [facility] Procedures CT Head Neck Angiogram with IV Contrast [address] [place] [address] Referral ID Status Reason Start Date Expiration Date Visits Requ ested Visits Authorized [id number] Closed 02/17/2021 02/17/2022 1 1 Encounter Details Date Type Department Care Team Description 02/17/2021 Orders Only Department of Jeannette Cote Cerebral Infarction Neurologic Surgery in Lilian Souza Due To Embolism Right [place], [place] [address] [facility] Vertebral Artery (HCC) [address] [place], [place] (Primary Dx) [place] [phone] Social History Tobacco Use Types Packs/Day Years [...] you attend muslim or Patient refused 2021 restorationism services? Do [...] ane urysms. 3. 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 Otherwise [place] is intact. Dolichoectasia of [...] 2 mm left supraclinoid aneurysm (557). Otherwise [place] is intact. Dolichoectasia of [...] ane urysms. 3. 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 Jeannette NIELSON CT [...]
--- OUTSIDE RECORDS SUMMARY | 2022-09-20 14:30 | XMS_ITS | Encounter Summary ---
:1965 Author Organization [facility] Address [address] [place] [address] Care Team Providers Name Role Phone Unavailable Primary Care Provider Unavailable Encounter Details Date Type Department Care Team Description 03/11/2021 Clinical Communication Department of Ana Segura Orthopedic Surgery in [place], [place] [address] [place] [phone] Social History Tobacco Use Types Packs/Day Years [...] you attend voodoo or Patient refused 2021 rastafarian services? Do [...] Patient would like to be seen in [place]. Referral line to [place] provided to angela batista. Patient aware she will call for apptointment. Telephone Encounter - Jerica Gee L.P.N. - 03/13/2021 9:09 AM CDT Left message to call clinic back. Needs to see a hand surgeon. Telephone Encounter - Christal Abraham L.P.N. - 03/12/2021 3:21 PM CDT Left message for patient to call back. She can contact [place], [place], or sarath frye if she choses. Telephone Encounter - Clemente Schofield M.D. - 03/12/2021 11:23 AM CDT She should see a hand surgeon Telephone Encounter - Esperanza Stratton - 03/11/2021 9:33 AM CDT Reason for Communication: Patient is calling in stating that she is being referred to be seen for a brake in her LEFT hand. Patient is stating that [facility] in [facility] is requesting for patient to be seen by our orthopedic department. Patient is wanting to be seen in [place]. Unable to find any encounters regarding a [...]
--- OUTSIDE RECORDS SUMMARY | 2022-09-20 14:30 | XMS_ITS | Encounter Summary ---
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 [facility] Procedures CT Head Neck Angiogram with IV Contrast [address] [place] [phone] Referral ID Status Reason Start Date Expiration Date Visits Requ ested Visits Authorized [id number] Closed 02/17/2021 02/17/2022 1 1 Encounter Details Date Type Department Care Team Description 03/12/2021 Hospital Encounter Department of Jeannette Cote ebral Infarction Radiology, Severiano Souza M.D. Due To Embolism Building, in [address] [place], [place] Artery (HCC) [place] [address] [phone] [place], [place] (Work) [address] [phone] Social History Tobacco Use Types Packs/Day Years [...] you attend congregation or Patient refused 2021 spiritism services? Do [...] N/A C omputed Tomography, Computed Neuroradiology [facility], Neuroradiology T omography [facility] Specimen (Source) [...] ane urysms. 3. Dolichoectasia of the cervical science intern al carotid arteries bilaterally. 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 Otherwise [place] is intact. 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 Otherwise [place] is intact. Dolichoectasia of [...] ane urysms. 3. Dolichoectasia of the cervical science intern al carotid arteries bilaterally. Jeannette NIELSON [...]
--- OUTSIDE RECORDS SUMMARY | 2022-09-20 14:30 | XMS_ITS | Encounter Summary ---
:1965 Author Organization [facility] Address [address] [place] [id number] Care Team Providers Name Role Phone Unavailable Primary Care Provider Unavailable Reason for Visit Reason Comments Communication Encounter Details Date Type Department Care Team Description 02/19/2021 Clinical Communication Department of [facility] in [place] Jang, [place], [place] Ph.D. [address] [place] [address] [address] [place] [id number] [phone] Social History Tobacco Use Types Packs/Day Years [...] you attend anabaptist or Patient refused 2021 islam services? Do [...]
--- OUTSIDE RECORDS SUMMARY | 2022-09-20 14:30 | XMS_ITS | Encounter Summary ---
:1965 Author Organization [facility] Address [address] [place] [address] Care Team Providers Name Role Phone Unavailable Primary Care Provider Unavailable Reason for Visit Reason Comments Nicotine Dependence Encounter Details Date Type Department Care Team Description 03/10/2021 Clinical Communication Department of [facility], Carolyn Mccarthy cotine Dependence Nicotine M.S., Dependence, C.T.T.S., [facility] in [address] [place] [id number] [place], [place] [phone] (Work) [phone] Social History Tobacco Use Types Packs/Day Years [...] you attend religious or Patient refused 2021 mandaeism services? Do [...]
--- OUTSIDE RECORDS SUMMARY | 2022-09-20 14:30 | XMS_ITS | Encounter Summary ---
:1965 Author Organization [facility] Address [address] [place] [id number] Care Team Providers Name Role Phone Unavailable Primary Care Provider Unavailable Reason for Visit Reason Comments Follow-up [facility] Patient Encounter Details Date Type Department Care Team Description 02/25/2021 [facility] jimmy Celaya M.D. Patient) Challenge, [facility] [place], [place] [address] [place] [phone] [place], [place] [phone] (Work) [phone] Social History Tobacco Use Types Packs/Day Years [...] so I advised she report to the [place] [facility] as soon as possible to be [...]
--- OUTSIDE RECORDS SUMMARY | 2022-09-20 14:31 | XMS_ITS | Encounter Summary ---
:1965 Author Organization [facility] Address [address] [place] [phone] Care Team Providers Name Role Phone Unavailable Primary Care Provider Unavailable Reason for Referral Outpatient (Routine) - Closed Specialty Diagnoses / Procedures Referred By Contact Refer red To Contact Home Health Care Diagnoses Stroke (HCC) Chronic Pain Syndrome Stroke Cerebrovascular Accident Personal History Ric Quinn M.D., M.S. [address] [place] [phone] Referral ID Status Reason Start Date Expiration Date Visits Requ ested Visits Authorized [id number] Closed 02/03/2021 02/03/2022 1 1 R Encounter Details Date Type Department Care Team Description 01/31/2021 - Hospital Encounter [facility] [place], Stroke (H CC) (Primary Dx); [facility], [address] [place] [address] Stroke Cerebrovascular Accident Personal History [facility] [phone] floor [phone] [place] [address] (Work) [place], [place] [phone] (Fax) [phone] Social History Tobacco Use Types Packs/Day Years [...] Comments Blood Pressure 133/71 02/03/2021 5:15 PM PARER Pulse 92 02/03/2021 5:15 PM PARER Temperature 36.5 ??C (97.7 ??F) 02/03/2021 5:15 PM PARER Respiratory Rate 17 02/03/2021 5:15 PM PARER Oxygen Saturation 97% 02/03/2021 5:15 PM PARER Inhaled Oxygen Concentration - - Weight 78.8 kg (173 lb 11.6 oz) 01/31/2021 9:39 PM PARER Height 152.4 cm (5') 01/31/2021 9:39 PM PARER Body Mass Index 33.93 01/31/2021 9:39 PM PARER documented in this encounter Discharge Summaries Malcom Torres M.D. - 02/03/2021 2:24 PM CST DISCHARGE SUMMARY BRIEF OVERVIEW Hospital: [facility] Discharge Provider: Nan Rios M.D. [...] subsequently admitted directly to [facility] Neurology Stroke service for further [...] ??C, temperature source Oral, resp. rate 17, uwdsmc866.4 cm, weight 78.8 kg, SpO2 94 %. [...] provided to the patient and caregiver(s). R documented in this encounter Discharge Instructions Discharge InstructionsLaquita Raines - 02/02/2021 7:23 AM CST You were discharge from the Neurology Stroke Service. Please Identify this service name if you call with questions after your hospitalization. R Discharge Instr - ActivityLeonides Liang PBrittonT. - 02/02/2021 1:13 PM PARER Physical Therapy Discharge Summary MOBILITY RESTRICTIONS/PRECAUTIONS: Fall [...] 02/02/2021 by Leonides Liang P.T. Contact information: [facility], [address], R AttachmentsThe following attachments cannot be sent through Care Everywhere. Apixaban (By mouth) (Gambian)Nicotine (Absorbed through the skin) (Gambian) Nicotine (By breathing) (Gambian)Nicotine (Into the nose) (Gambian)documented in this encounter Medications at Time of [...] Per patient report, she was able to seam taper machine the shower last evening and using grab [...] Treatment Time (min): 16 min MILA Cardoza R Helen Greer P.T. - 02/03/2021 1:57 PM CST No PT intervention today as patient was at an MRI this morning, now stating that she has just gone for a walk and plans are for dc to home with intermittent assist from her son. Helen Greer, PT R Catalina Panchal, R.N. - 02/03/2021 1:49 PM CST Patient discussed at Stroke Multidisciplinary Rounds. Plan for the day: Case Management Following, PT/OT, Medication Management, MRI/MRA Plan for the Stay: Stroke w/u Discharge barriers: Inpatient Needs Recommended [place] [facility] R Nan Rios M.D. - 02/03/2021 10:36 AM [...] pain syndrome, fibromyalgia, and nicotine use disorder. R Leonides Kumar M.D. - 02/03/2021 7:09 AM [...] [facility]ere[facility] Disease Ct Scan Technician, Dr. Rios. Please page the [facility] Neurology Stroke and Cerebrovascular Disease service pager at [phone] with any questions. Leonides Kumar M.D. R Makenzie Figueredo O.T.Katarina - 02/02/2021 3:24 PM [...] home to ensure her safety. From the Tiedown Operator's perspective, the patient is not an inpatient [...] Treatment Time (min): 32 min MILA Cardoza R Catalina Panchal RBetsy - 02/02/2021 2:31 PM CST Patient discussed at Stroke Multidisciplinary Rounds. Plan for the day: MRI, Case Management Consult, PT/OT, Medication Management Plan for the Stay: Stroke w/u Discharge barriers: Inpatient Needs Recommended discharge disposition: [facility] [place]C R Leonides Liang P.T. - 02/02/2021 12:58 PM [...] Time (min): 32 min Leonides Liang P.T. R Nan Rios M.D. - 02/02/2021 10:27 AM [...] pain syndrome, fibromyalgia, and nicotine use disorder. R Jessie Rock Pharm.D., R.Ph. - 02/02/2021 10:21 AM CST Images from the original note were not included. Admission Medication History Note Adherence issues: Unable to assess Medication list source: Pharmacy or dispense records. Medication list provided by [facility] in [place]. Most recent dispensing information obtained. Multiple changes [...] mouth 2 (two) times a day. R Leonides Kumar M.D. - 02/02/2021 6:55 AM [...] [facility] Disease Ct Scan Technician, Dr. Rios. Please page the [facility] Neurology Stroke and Cerebrovascular Disease service pager at [phone] with any questions. Leonides Kumar M.D. R Leonides Kumar M.D. - 02/01/2021 6:36 AM [...] [facility] Stroke [facility] Cerebro[facility] Disease Ct Scan Technician, Dr. Riso. Please page the [facility] Neurology Stroke and Cerebrovascular Disease service pager at [phone] with any questions. Leonides Kumar M.D. R documented in this encounter H&P Notes Nan [...] segment. ?? The patient presented to the [place] ED with acute onset vertigo which occurred yesterday afternoon while she was at [facility]. She bent forward and complained of neck pain which radiated to the top of her head. She also complained of warmth all over her body and generalised weakness. ?? With effort, she was able to ambulate back to her car with her groceries, where she met her son, whothen took her to the [place] ED. There, the patient had a head CT the chronic left cerebellar infarct. There was also concern for a new infarct in the right thalamus. INR was 1.35. She was transferred to [facility] for further evaluation. ?? Today, [...] pain syndrome, fibromyalgia, and nicotine use disorder. R Marbella Cutler M.D. - 02/01/2021 2:55 AM [...] V4 segment. The patient presented to the [place] ED with acute onset vertigo which occurred yesterday afternoon while she was at [facility]. She bent forward and complained of neck pain which radiated to the top of her head. She also complained of warmth all over her body and generalised weakness. With effort, she was able to ambulate back to her car with her groceries, where she met her son, whothen took her to the [place] ED. There, the patient had a head CT the chronic left cerebellar infarct. INR was 1.35. She was transferred to [facility] for further evaluation. On the floor, she was hemodynamically stable but complained of ongoing vertigo, with difficulty keeping her eyes open. Social history: she is currently unemployed but previously worked at a [employer] and [employer]. She is fully independent of her ADLs [...] admitting resident. Please page the Stroke service [phone] with questions/concerns. R Gerald England M.D. - 01/31/2021 9:16 PM [...] subsequently admitted directly to [facility] Neurology Stroke service for further [...] More than three times a week Attends religion service: Patient refused Active member of club [...] and normal caliber bilateral MCAs, ACAs and cellular phone repairer. Patent anterior and right posterior communicating arteries. [...] page the Cerebrovascular Neurology Service pager at [phone] with any questions or concerns. [facility] Stroke Neurology Service Plant Security Guard: Nan England M.D. STROKE DOCUMENTATION: Stroke Center [...] to hemorrhage and/or hemorrhagic risk Prestroke modified Kittson Score (mRS): 1 - No significant disability. [...] 30 or greater) and hormonal contraceptive use R documented in this encounter Consult Notes Pamela Middleton M.S., TrayC., C.T.T.S. - 02/03/2021 10:08 AM CSTAssociated Order(s): IP CONSULT TO INTERNAL MEDICINE NICOTINE DEPENDENCE; IP CONSULT TO INTERNAL MEDICINE NICOTINE DEPENDENCE SUBJECTIVE Consults REASON FOR CONSULT Admitting Service: Neurology Reason for Consult: Tobacco Use Disorder HISTORY OF PRESENT ILLNESS Angie Bender is a 55 y.o. female who was seen at [facility] and is being evaluated for tobacco use [...] provided the patient with educational materials and [facility] contact information. Patient is unable to [...] Middleton M.S., Delvin, C.T.T.S. 02/03/2021 10:08 AM PARER R Catalina Panchal, RBrittonNBritton - 02/02/2021 2:11 PM CSTAssociated Order(s): IP CONSULT TO CARE MANAGEMENT Discharge Planning Assessment SUBJECTIVE Referral Data Referral Source: Early Screen for Discharge Planning Referral Reason: Discharge Planning Discharge Planning: Home health Who was present during the interview?: Patient Manager Erp Services Used: No Patient Information Primary Caregiver: Self Legal Information Legal Decision Maker: Self Legal Status: Voluntary Caregiver Information Self Services Requested Home Health: [facility] Level of Care: Intermediate OBJECTIVE Functional Status (ADLs) Functional Status: Minimum assistance Assistive Devices: Walker, Shower chair, Eyeglasses, Hearing aids Dressing: Independent Feeding: Independent Bathing: Independent Grooming: Independent Toileting: Independent Transfer to/from Bed, Chair Etc.: Independent Mobility: Independent Meal Prep: Independent Medication Setup/Administration: Needs assistance Telephone Use: Independent Housekeeping: Independent Shopping: Independent Managing Finances: Independent Behavior: Oriented Communication: Talks, Understands speaking, Understands Gambian Environmental Supports Home Environment: House Anticipated Needs/Assistive [...] Nurse visit Home Care Agency Name : [facility] Anticipated Discharge Destination: Home-Health Care [facility] Recommended Discharge Services: Nursing Does the patient need discharge transport arranged?: No ASSESSMENT / PLAN Plan Assessment: The metal sprayer protective coating met with Angie Bender to discuss her current hospitalization and home goingneeds. The patient was unaccompanied. The patient was a reliable historian, but was lacking completedetails at times. The role of metal sprayer protective coating was reviewed. The patient reviewed her prior level of care and support system. The patient receives support from her son. The patient described her living environment as a single level home with level entry. Housekeeping, grocery shopping, meal prep, and other household responsibilities have previously been completed by patient. metal sprayer protective coating discussed the patient's potential needs at dismissal based on their home setti ng, previous needs and responsibilities, homebound status, and relevant assessments with the patient. The patient will be safe and supported to return home with [facility] or previous services noted above when [...] dismissal will be provided by family--son. 3. metal sprayer protective coating recommended nothing at this time. 4. metal sprayer protective coating provided information regarding the dismissal process. 5. metal sprayer protective coating placed or requested the following hospital-based consult orders and/or referrals:None. 6. metal sprayer protective coating will continue to assess for homegoing needs with the interdisciplinary team. 7. metal sprayer protective coating encouraged the patient to reach out with any questions/concerns. Care Management will continue to follow. Patient to discharge with home health care. [facility] - Admitted Since 01/31/2021 The patient receives fdc visits 1-2x week. She has qualified for SUPERVISOR CIGAR MAKING HAND, homemaking, and home health aide visits, but [...] With: Alone Receives Help From: Family, Friend(s), guest services attendant ADL Assistance: Independent IADL/Homemaking Assistance: Required assistance IADL/Homemaking Assistance Comments: Has assistance with meals on wheels, cleaning, and medication management Occupational Role: On disability Prior Mobility/Functional Transfers Level of [place]: Independent Previous Transfer/Mobility Assistance Comments: Patient reports [...] Time (min): 25 min Radha Samuel P.T. R Rosario Lopez O.Jolanta. - 02/01/2021 3:17 PM [...] With: Alone Receives Help From: Family, Friend(s), guest services attendant ADL Assistance: Independent IADL/Homemaking Assistance: Required assistance IADL/Homemaking Assistance Comments: Has assistance with meals on wheels, cleaning, and medication management Driving: Independent Occupational Role: On disability Occupational Role Comments: Previously worked at a [employer] and [employer] Prior Mobility/Functional Transfers Level of [place]: Independent Home Living Type of Home: Apartment [...] Time (min): 60 min Rosario Lopez O.T. R Maria M Duque M.D. - 02/01/2021 7:21 AM CSTAssociated Order(s): IP CONSULT TO PHYSICAL MEDICINE & REHABILITATION Consult received for Physical Medicine and Rehabilitation Consult Service. I reviewed the electronic health record. I have triaged to therapy only; no ledger clerk consult appears to be necessary at this time. If therapists or referring service feel that a ledger clerk review is necessary, please send a new consult request with only the Physician consult - Physical Medicine and Rehabilitation consult (hospital) item selected. R documented in this encounter Nursing Notes Sofie [...] by: Sofie Sutton R.N. 02/03/21 5:24 PM PARER R Sofie Sutton R.N. - 02/03/2021 5:20 PM [...] by: Sofie Sutton R.N. 02/03/21 5:22 PM PARER R Marlene Grover R.N. - 02/03/2021 5:14 AM [...] Goal: Patient discharge needs identified Outcome: Progressing R Mague Rudolph R.N. - 02/02/2021 5:03 AM CST Shift Goals: Clinical Goals for the Shift: patient will use call light appropriately Identify possible barriers to meeting goals/advancing plan of care: End of Shift Summary: patient met goal R Valarie Grayson R.N. 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 MRI scheduled for Tuesday related to device monitoring. Electronically signed by: Valarie Grayson R.N. 02/01/21 5:59 PM PARER Problem: SKIN/TISSUE INTEGRITY Goal: Skin/Tissue integrity maintained or improved Outcome: Progressing Problem: SAFETY ADULT Goal: Maintain a safe environment Outcome: Progressing Problem: SAFETY ADULT - RISK FOR FALL AND OR FALL INJURY Goal: Patient remains free from fall/fall injury Outcome: Progressing R documented in this encounter Miscellaneous Notes Hospital [...] subsequently admitted directly to [facility] Neurology Stroke service for further [...] after a CTA head/neck in 3 months. R documented in this encounter Plan of Treatment Scheduled Referrals Name Type Priority Associated Diagnoses Order S chedule [facility] Outpatient Referral Routine Stroke (HCC) Ordered: Health Referral Chronic Pain Syn drome 02/03/2021 Stroke Cerebrovascular Accident Personal History documented as of this encounter Procedures Procedure Name Priority Date/Time Associated Comments Diagnosis MR NECK ANGIOGRAM RAD - Routine 02/03/2021 Results f or WITHOUT AND WITH IV (most inpatients 12:39 PM PARER this procedure CONTRAST and all are in the outpatients) results section. MR BRAIN WITHOUT AND RAD - Routine 02/03/2021 Result s for WITH IV CONTRAST (most inpatients 12:34 PM PARER this pr ocedure and all are in the outpatients) results section. DX ABDOMEN SUPINE WITH RAD - Routine 02/02/2021 3:26 R esults for UPRIGHT OR DECUBITUS 2 (most inpatients PM PARER t his procedure VIEWS and all are in the outpatients) results section. PROTHROMBIN TIME (PT), Routine 02/02/2021 5:20 Re sults for P AM PARER this procedure are in the results section. LIPID PANEL, S Routine 02/01/2021 5:21 Results fo r AM PARER this procedure are in the results section. RENAL FUNCTION PANEL, S Routine 02/01/2021 5:21 R esults for AM PARER this procedure are in the results section. FOLATE, S Routine 02/01/2021 5:21 Results for AM PARER this procedure are in the results section. VITAMIN B12 ASSAY, S Routine 02/01/2021 5:21 Resu lts for AM PARER this procedure are in the results section. ECG Routine 01/31/2021 Results for 11:35 PM PARER this procedure are in the results section. SARS CORONAVIRUS 2, Routine 01/31/2021 Results for RNA, RAPID POC, V 10:32 PM PARER this proce dure are in the results section. ELECTROLYTE (CHEM 4) Routine 01/31/2021 9:44 Resu lts for PANEL, S/P PM PARER this procedure are in the results section. ACTIVATED PARTIAL Routine 01/31/2021 9:44 Results for THROMBOPLASTIN TIME PM PARER this pro cedure (APTT), P are in the results section. PROTHROMBIN TIME (PT), Routine 01/31/2021 9:44 Re sults for P PM PARER this procedure are in the results section. CBC WITH DIFFERENTIAL, Routine 01/31/2021 9:44 Re sults for B PM PARER this procedure are in the results section. ALANINE Routine 01/31/2021 9:44 Results for AMINOTRANSFERASE (ALT), PM PARER this procedure S/P are in the results section. ASPARTATE Routine 01/31/2021 9:44 Results for AMINOTRANSFERASE (AST), PM PARER this procedure S/P are in the results section. THYROID-STIMULATING Routine 01/31/2021 9:44 Resul ts for HORMONE-SENSITIVE PM PARER this proce dure (S-TSH) are in the results section. HEMOGLOBIN A1C, B Routine 01/31/2021 9:44 Results for PM PARER this procedure are in the results section. documented in this encounter Results MR Neck Angiogram without and with IV Contrast (02/03/2021 12:39 PM PARER) Anatomical Region Laterality Modality Neck, Neuroradiology RST LOS, Neuroradiology ARZ [facility], N/A Magnetic Resonance Neuroradiology FLA [facility] Specimen (Source) Anatomical Collection Method Collection Time Re ceived Time Location / / Volume Laterality 02/03/2021 11:37 AM PARER Impressions 02/03/2021 1:26 PM PARER 1. Infarctions in the posterior circulation of [...] technica l limitations. Narrative 02/03/2021 1:26 PM PARER EXAM: MR BRAIN WITHOUT AND WITH IV [...] and with IV Contrast (02/03/2021 12:34 PM PARER) Anatomical Region Laterality Modality Head, Brain, Neuroradiology RST LOS, Neuroradiology ADILIA N/A Magnetic Resonance LOS, Neuroradiology FLA [facility] Specimen (Source) Anatomical Collection Method Collection Time Re ceived Time Location / / Volume Laterality 02/03/2021 11:37 AM PARER Impressions 02/03/2021 1:26 PM PARER 1. Infarctions in the posterior circulation of [...] technica l limitations. Narrative 02/03/2021 1:26 PM PARER EXAM: MR BRAIN WITHOUT AND WITH IV [...] or Decubitus 2 Views (02/02/2021 3:26 PM PARER) Anatomical Region Laterality Modality Abdomen, Abdominal RST LOS, Abdominal ARZ LOS, Right Digital Radiography Abdominal FLA LOS Specimen (Source) Anatomical Collection Method Collection Time Re ceived Time Location / / Volume Laterality 02/02/2021 3:49 PM PARER Impressions 02/02/2021 3:50 PM PARER Spinal stimulator device with tip over the T7-8 interspace. Generator pack posterior to the left janett ac crest. Postoperative changes ventral hernia repair. Surgical marylin near the GE junction. Cholecystectomy. Lung bases are clear. Narrative 02/02/2021 3:50 PM PARER EXAM: ??DX ABDOMEN SUPINE WITH UPRIGHT OR [...] (ABNORMAL) Prothrombin Time (PT) (02/02/2021 5:20 AM PARER) [facility] Method Time Signature Prothrombin 16.2 (H) 9.4 - 12.5 02/02/2021 DTL Time, P sec 6:12 AM PARER INR 1.5 0.9 - 1.1 02/02/2021 DTL 6:12 AM PARER Comment: ----ADDITIONAL INFORMATION---- Standard intensity warfarin therapeutic range: 2.0 to 3.0 ?? High intensity warfarin therapeutic rang e: 2.5 to 3.5 Specimen Anatomical Collection Method Collection Time Receive d Time (Source) Location / / Volume Laterality Blood (Blood, 02/02/2021 5:20 AM 02/03/20 5:48 Venous) PARER AM PARER Leonides Kumar M.D. LAB BLOOD ADD-ON Performing Organization Address City/State/ZIP Code Phon e Number [facility] - [address] [place], [place] [address] [facility] [place] [address] Laboratories-[facility] [address] [facility] Renal Function Panel (02/01/2021 5:21 AM PARER) P athologist Signature Potassium, S 4.3 3.6 - 5.2 02/01/2021 DTL mmol/L 6:26 AM PARER Sodium, S 139 135 - 145 02/01/2021 DTL mmol/L 6:26 AM PARER Chloride, S 106 98 - 107 02/01/2021 DTL mmol/L 6:26 AM PARER Bicarbonate, S 25 22 - 29 02/01/2021 DTL mmol/L 6:26 AM PARER Anion Gap 8 7 - 15 02/01/2021 DTL 6:26 AM PARER BUN (Blood Urea 14 6 - 21 02/01/2021 DTL Nitrogen), S mg/dL 6:26 AM PARER Creatinine 0.74 0.59 - 02/01/2021 DTL 1.04 mg/dL 6:26 AM PARER eGFR-Non >90 >=60 02/01/2021 DTL Black/ mL/min/BSA 6:26 AM PARER Slovenian Comment: ----ADDITIONAL INFORMATION---- Estimated GFR calculated using the 2009 CKD_EPI creatinine equation. eGFR-Black/ >90 >=60 mL/min/BSA 2020 6:26 AM PARER DTL Comment: ----ADDITIONAL INFORMATION---- Estimated GFR calculated using the 2009 CKD_EPI creatinine equation. Calcium, Total, S 9.2 8.6 - 10.0 mg/dL 02/01/2021 6:26 AM PARER DTL Glucose, S 96 70 - 140 mg/dL 02/01/2021 6:26 AM PARER D TL Albumin, S 3.6 3.5 - 5.0 g/dL 02/01/2021 6:26 AM PARER D TL Phosphorus (Inorganic), S 4.0 2.5 - 4.5 mg/dL 02/02/20 6:26 AM PARER DTL Specimen Anatomical Collection Method Collection Time Receive d Time (Source) Location / / Volume Laterality Blood (Blood, 02/01/2021 5:21 AM 02/02/20 5:52 Venous) PARER AM PARER Gerald England M.D. LAB BLOOD ADD-ON Performing Organization Address City/[facility] Phon e Number [facility] - [address] [place] [address] Laboratories-[facility] 200 [facility] (ABNORMAL) Vitamin B12 Assay (02/01/2021 5:21 AM PARER) Analysis Performed At Patho logist Time Signature Vitamin B12 >1400 (H) 180 - 914 02/02/2021 DTL Assay, S ng/L 7:10 AM PARER Comment: ----ADDITIONAL INFORMATION---- In patients being evaluated [...] (Blood, 02/01/2021 5:21 AM 02/02/20 5:52 Venous) PARER AM PARER Gerald England M.D. LAB BLOOD ADD-ON Performing Organization Address City/[facility] Phon e Number [facility] - [address] [place], [place] [address] [place] [address] Laboratories-[facility] 200 [facility] Folate (02/01/2021 5:21 AM PARER) P athologist Signature Folate, S 17.9 >=4.0 mcg/L 02/02/2021 7:09 DTL AM PARER Specimen Anatomical Collection Method Collection Time Receive d Time (Source) Location / / Volume Laterality Blood (Blood, 02/01/2021 5:21 AM 02/02/20 5:52 Venous) PARER AM PARER Gerald England M.D. LAB BLOOD ADD-ON Performing Organization Address City/[facility] Phon e Number [facility] - [address] [place] [phone] [facility] [place] [address] [facility] 200 [facility] Lipid Panel (02/01/2021 5:21 AM PARER) P athologist Signature Cholesterol, 157 mg/dL 02/01/2021 DTL Total 6:27 AM PARER Comment: ----REFERENCE VALUE---- Desirable: < 200 Borderline high: 200 - 239 High: > or = 240 Triglycerides 107 mg/dL 02/01/2021 6:27 AM PARER DTL Comment: ----REFERENCE VALUE---- Normal: <150 Borderline high: 150-199 High: 200-499 Very high: > or =500 Cholesterol, HDL, S 88 >=50 mg/dL 02/01/2021 6:27 AM PARER DTL Calculated LDL 48 mg/dL 02/01/2021 6:27 AM PARER DT L Comment: ----REFERENCE VALUE---- Desirable: <100 Above Desirable: 100-129 Borderline high: 130-159 High: 160-189 Very high: > or =190 Cholesterol, Non-HDL, Calculated 69 mg/dL 021 6:27 AM PARER DTL Comment: ----REFERENCE VALUE---- Desirable: <130 Above Desirable: 130-159 Borderline high: 160-189 High: 190-219 Very high: > or =220 Specimen Anatomical Collection Method Collection Time Receive d Time (Source) Location / / Volume Laterality Blood (Blood, 02/01/2021 5:21 AM 02/02/20 5:52 Venous) PARER AM PARER Gerald England M.D. LAB BLOOD ADD-ON Performing Organization Address City/[facility] Phon e Number [facility] - [address] [place], [place] [address] [facility] [place] [address] [facility] 200 [facility] ECG 12 Lead (01/31/2021 11:35 PM PARER) P athologist Signature Ventricular Rate 60 BPM MUSE ECG/Min LA Interval 170 ms MUSE QRSD Interval 88 ms MUSE QT Interval 434 ms MUSE QTC Interval 434 ms MUSE P [place] 31 degrees MUSE R [place] -16 degrees MUSE T Wave [place] 3 degrees MUSE Specimen Anatomical Collection Method Collection Time Receive d Time (Source) Location / / Volume Laterality 01/31/2021 11:35 02/01/2021 6:10 PM PARER AM PARER Impressions MUSE - 02/01/2021 6:10 AM PARER Normal sinus rhythm Minimal voltage criteria for [...] Rapid POC, V Asymptomatic (01/31/2021 10:32 PM PARER) [facility] gist Method Time Signature SARS Undetected Undetected 01/31/2021 DTLR Coronavirus-2 10:52 PM PARER , RNA, Rapid POC, V Comment: Negative for SARS-CoV-2. The Cue COVID-19 test is a molecular shahzad t for SARS-CoV-2, the virus that causes COVID- 19. A Negative result means that the Cue COV ID-19 test did not detect SARS-CoV-2 virus in your sample. Cue COVID-19 test uses the [employer] System. This test has received Emergency Use Authorization (EUA) by the U.S. Food and Drug Administration (FDA) and is used per man ufacturer instructions. Performance characteristic s were verified by [facility] in a manner consistent with CLIA requirements. Fact sheets for this Emerg ency Use Authorization (EUA) can be found at the following links: Providers: https://[employer]/documentation/prov iders.pdf Patients: https://[employer].com/documentation/olayinka ents.pdf SARS Coronavirus 2, Source Nasopharynx DEFAULT 01/31/2021 10:52 PM PARER DTLR Specimen Anatomical Collection Method Collection Time Receive d Time (Source) Location / / Volume Laterality Varies 01/31/2021 10:32 01/31/2021 (Nasopharynx) PM PARER 10:32 PM PARER Nan Rios M.D. LAB MICROBIOLOGY - GENERAL O RDERABLES Performing Organization Address City/State/ZIP Code Phon e Number PERFORMING LABS, [place] [address] INTERFACE Ref Interface 200 [facility] DT Performing Labs, [place] [address] Interface 200 [facility] Electrolyte (Chem 4) Panel (01/31/2021 9:44 PM PARER) P athologist Signature Potassium, P 4.0 3.6 - 5.2 01/31/2021 STMA mmol/L 10:06 PM PARER Sodium, P 137 135 - 145 01/31/2021 STMA mmol/L 10:06 PM PARER Chloride, P 104 98 - 107 01/31/2021 STMA mmol/L 10:06 PM PARER Bicarbonate, P 24 22 - 29 01/31/2021 STMA mmol/L 10:06 PM PARER Anion Gap, P 9 7 - 15 01/31/2021 STMA 10:06 PM PARER Specimen Anatomical Collection Method Collection Time Receive d Time (Source) Location / / Volume Laterality Blood (Blood, 01/31/2021 9:44 PM 02/01/20 21 9:56 Venous) PARER PM PARER Gerald England M.D. LAB BLOOD ADD-ON Performing Organization Address City/[facility] Phon e Number [facility] - [address] [place], [place] [address] [facility] [place] [address] Laboratories-[facility] [address] (ABNORMAL) Prothrombin Time (PT) (01/31/2021 9:44 PM PARER) [facility] Method Time Signature Prothrombin 15.5 (H) 9.4 - 12.5 01/31/2021 DTL Time, P sec 10:27 PM PARER INR 1.4 0.9 - 1.1 01/31/2021 DTL 10:27 PM PARER Comment: ----ADDITIONAL INFORMATION---- Standard intensity warfarin therapeutic range: 2.0 to 3.0 ?? High intensity warfarin therapeutic rang e: 2.5 to 3.5 Specimen Anatomical Collection Method Collection Time Receive d Time (Source) Location / / Volume Laterality Blood (Blood, 01/31/2021 9:44 PM 02/01/20 21 Venous) PARER 10:06 PM PARER Gerald England M.D. LAB BLOOD ADD-ON Performing Organization Address City/[facility] Phon e Number [facility] - [address] APTT (Activated Partial Thromboplastin Time) (01/31/2021 9:44 PM PARER) P athologist Signature Activated 35 25 - 37 sec 01/31/2021 DT Partial 10:27 PM PARER Thrombopl Time, P Specimen Anatomical Collection Method Collection Time Receive d Time (Source) Location / / Volume Laterality Blood (Blood, 01/31/2021 9:44 PM 02/01/20 Venous) PARER 10:06 PM PARER Gerald Engalnd M.D. LAB BLOOD ADD-ON Performing Organization Address City/[facility] Phon e Number [facility] - [address] (ABNORMAL) Hemoglobin A1c (01/31/2021 9:44 PM PARER) P athologist Signature Hemoglobin A1c, 6.1 (H) 4.0 - 5.6 01/31/2021 DTL B % 10:18 PM PARER Comment: Hemoglobin A1c values of 5.7-6.4 percent indicate an increased risk for developing diabetes henrry skinner. In diabetic patients, HbA1c goals should be discussed with healthcare provider. Specimen Anatomical Collection Method Collection Time Receive d Time (Source) Location / / Volume Laterality Blood (Blood, 01/31/2021 9:44 PM 02/01/20 21 Venous) PARER 10:06 PM PARER Gerald England M.D. LAB BLOOD ADD-ON Performing Organization Address City/State/ZIP Code Phon e Number [facility] - [address] [place], [place] [address] [facility] [place] [address] Laboratories-[facility] [address] [facility] (ABNORMAL) CBC with Differential, Blood (01/31/2021 9:44 PM PARER) [facility] Method Time Signature Hemoglobin 11.1 (L) 11.6 - 01/31/2021 DTL 15.0 g/dL 10:12 PM PARER Hematocrit 34.9 (L) 35.5 - 01/31/2021 DTL 44.9 % 10:12 PM PARER Erythrocytes 3.84 (L) 3.92 - 01/31/2021 DTL 5.13 10:12 PM PARER x10(12)/L MCV 90.9 78.2 - 01/31/2021 DTL 97.9 fL 10:12 PM PARER RBC Distrib Width 14.4 12.2 - 01/31/2021 DTL 16.1 % 10:12 PM PARER Platelet Count 326 157 - 371 01/31/2021 DTL x10(9)/L 10:12 PM PARER Leukocytes 6.8 3.4 - 9.6 01/31/2021 DTL x10(9)/L 10:12 PM PARER Neutrophils 4.91 1.56 - 01/31/2021 DTL 6.45 10:12 PM PARER x10(9)/L Lymphocytes 1.52 0.95 - 01/31/2021 DTL 3.07 10:12 PM PARER x10(9)/L Monocytes 0.34 0.26 - 01/31/2021 DTL 0.81 10:12 PM PARER x10(9)/L Eosinophils 0.03 0.03 - 01/31/2021 DTL 0.48 10:12 PM PARER x10(9)/L Basophils 0.03 0.01 - 01/31/2021 DTL 0.08 10:12 PM PARER x10(9)/L Specimen Anatomical Collection Method Collection Time Receive d Time (Source) Location / / Volume Laterality Blood (Blood, 01/31/2021 9:44 PM 02/01/20 21 Venous) PARER 10:06 PM PARER Gerald England M.D. LAB BLOOD ADD-ON Performing Organization Address City/State/ZIP Code Phon e Number [facility] - [address] [place], [place] [address] [facility] [place] [place] [address] [facility] [address] [facility] S-TSH (Thyroid-Stimulating Hormone - Sensitive) (01/31/2021 9:44 PM PARER) P athologist Signature TSH, Sensitive 0.3 0.3 - 4.2 01/31/2021 DTL mIU/L 10:59 PM PARER Specimen Anatomical Collection Method Collection Time Receive d Time (Source) Location / / Volume Laterality Blood (Blood, 01/31/2021 9:44 PM 02/01/20 21 Venous) PARER 10:06 PM PARER Gerald England M.D. LAB BLOOD ADD-ON Performing Organization Address City/[facility]/ZIP Code Phon e Number [facility] - [address] [place], [place] [address] [facility] [place] [place] [address] [place] [address] [address] [facility] AST (Aspartate Aminotransferase) (01/31/2021 9:44 PM PARER) [facility] Method Time Signature Aspartate 23 8 - 43 01/31/2021 DTL Aminotransferase U/L 10:59 PM PARER (AST), S Specimen Anatomical Collection Method Collection Time Receive d Time (Source) Location / / Volume Laterality Blood (Blood, 01/31/2021 9:44 PM 02/01/20 21 Venous) PARER 10:06 PM PARER Gerald England M.D. LAB BLOOD ADD-ON Performing Organization Address City/State/ZIP Code Phon e Number [facility] - [address] [place], [place] [address] [facility] [place], [place] [id number] [place] [address] [facility] ALT (Alanine Aminotransferase) (01/31/2021 9:44 PM PARER) [facility] gist Method Time Signature Alanine 15 7 - 45 01/31/2021 DTL Aminotransferase U/L 10:59 PM PARER (ALT), S Specimen Anatomical Collection Method Collection Time Receive d Time (Source) Location / / Volume Laterality Blood (Blood, 01/31/2021 9:44 PM 02/01/20 21 Venous) PARER 10:06 PM PARER Gerald England M.D. LAB BLOOD ADD-ON Performing Organization Address City/State/ZIP Code Phon e Number [facility] - [address] [place], [place] [address] [facility] [place] [address] Laboratories-[facility] [address] documented [...] tablet 1,000 mg Given 02/03/2021 6:56 AM PARER 1,000 mg (TYLENOL) 1,000 mg, oral, Every 6 hours PRN, mild pain or score 1-3 of 10, moderate pain or score 4-6 of 10, headaches, Starting on 02/01/21 at 0210 Given 02/02/2021 2:36 PM PARER 1,000 mg Given 02/02/2021 8:53 AM PARER 1,000 mg albuterol 90 mcg/actuation inhaler 2 puf f Given 02/03/2021 4:29 AM PARER 2 puffs 2 puff, inhalation, Every 6 hours PRN, wheezing, shortness of breath, Starting on 02/01/21 at 1115 apixaban tablet 5 mg (ELIQUIS) Given 02/03/2021 9:30 AM PARER 5 mg 5 mg, oral, 2 times daily, First dose on Tue02/02/21 at 2100 Given 02/02/2021 8:09 PM PARER 5 mg aspirin tablet 325 mg Given 02/02/2021 8:11 AM PARER 325 mg 325 mg, oral, Daily, First dose on 02/01/21 at 1030 Given 02/01/2021 10:54 AM PARER 325 mg atorvastatin tablet 40 mg (LIPITOR) Given 02/02/2021 8:09 PM PARER 40 mg 40 mg, oral, Daily at [...] 25 m cg Given 02/03/2021 9:29 AM PARER 25 mcg 25 mcg, oral, Daily, First dose on 02/01/21 at 0900, cholecalciferol (vitamin D3) orderable was interchanged for cholecalciferol (vitamin D3) tablet/capsule Given 02/02/2021 8:10 AM PARER 25 mcg Given 02/01/2021 9:11 AM PARER 25 mcg cyanocobalamin tablet 2,000 mcg (VITAMIN Given 02/03/2021 9: 28 AM PARER 2,000 mcg B12) 2,000 mcg, oral, Daily, First dose on 02/01/21 at 0900 Given 02/02/2021 8:08 AM PARER 2,000 mcg Given 02/01/2021 9:11 AM PARER 2,000 mcg diazePAM tablet 10 mg (VALIUM) Given 02/03/2021 10:51 AM PARER 10 mg 10 mg, oral, 2 times daily PRN, anxiety, Starting on 02/01/21 at 1016 Given 02/02/2021 10:24 PM PARER 10 mg Given 02/02/2021 8:53 AM PARER 10 mg docusate sodium 283 mg/5 mL enema 1 enem a (ENEMEEZ) 1 enema, rectal, 2 times daily PRN, cons tipation, Starting on 01/31/21 at 2125, If no bowel movement within 24 hours of starting bisac odyl FLUoxetine capsule 80 mg (PROzac) Given 02/03/2021 9:28 AM PARER 80 mg 80 mg, oral, Daily, First dose on 02/01/21 at 0900, FLUoxetine orderable was interchanged for FLUoxetine tablet/capsule Given 02/02/2021 8:10 AM PARER 80 mg Given 02/01/2021 9:10 AM PARER 80 mg folic acid tablet 800 mcg Given 02/03/2021 9:29 AM PARER 800 mcg 800 mcg, oral, Every morning, First dose on Tue02/01/21 at 0900 Given 02/02/2021 8:14 AM PARER 800 mcg Given 02/01/2021 10:00 AM PARER 800 mcg furosemide tablet 40 mg (LASIX) Given 02/03/2021 9:29 AM PARER 40 mg 40 mg, oral, 2 times daily, First dose on Tue02/02/21 at 0900 Given 02/02/2021 6:25 PM PARER 40 mg Given 02/02/2021 8:10 AM PARER 40 mg gadobutrol injection 0.01-30 mL (GADAVIS T) Given 02/03/2021 12:35 PM PARER 8 mL 0.01-30 mL, intravenous, Once in imaging, contrast, Starting on Tue02/03/21 at 1235, For 1 dose, Imaging Protocol Orders, Dose per Radiant Medication Guidelines heparin (porcine) Given 02/02/2021 6:29 AM PARER 5,000 Units Left Lower Abdomen injection 5,000 Units 5,000 Units, subcutaneous, Every 8 hours scheduled, First dose on Tue02/01/21 at 0600 Given 02/01/2021 9:17 PM PARER 5,000 Units Right Lower Abdomen Given 02/01/2021 1:56 PM PARER 5,000 Units Right Lower Abdomen lamoTRIgine tablet 200 mg (LaMICtal) Given 02/03/2021 9:29 AM PARER 200 mg 200 mg, oral, 2 times daily, First dose (after last modification) on 01/31/21 at 2245 Given 02/02/2021 8:09 PM PARER 200 mg Given 02/02/2021 8:11 AM PARER 200 mg lidocaine 5 % 1 patch Medication Applied 01/31/2021 10:44 PM 1 patch Upper Back (LIDODERM) PARER 1 patch, transdermal, Administer over 12 Hours, Daily, First dose on 01/31/21 at 2200, Remove after 12 hours. lidocaine 5 % ointment 1 application Given 02/02/2021 2:33 A M PARER 1 application (XYLOCAINE) 1 application, topical, 3 times daily PRN, mild pain or score 1-3 of 10, Starting on Tue02/01/21 at 1114, MAX of 20 g of ointment/day Given 02/01/2021 5:18 PM PARER 1 application loratadine tablet 10 mg (CLARITIN) Given 02/03/2021 9:30 AM PARER 10 mg 10 mg, oral, Daily, First dose on Tue02/01/21 at 0900, loratadine 10 mg oral daily was interchanged for cetirizine 5 mg oral twice daily Given 02/02/2021 8:11 AM PARER 10 mg Given 02/01/2021 9:12 AM PARER 10 mg magnesium oxide tablet 400 mg (MAG-OX) Given 02/02/2021 8:09 PM PARER 400 mg 400 mg, oral, Daily at bedtime, First dose on Tue02/01/21 at 2100, magnesium oxide 400 mg daily was interchanged for magnesium gluconate 500 mg daily Given 02/01/2021 9:17 PM PARER 400 mg meclizine tablet 25 mg (ANTIVERT) Given 02/02/2021 3:01 AM PARER 25 mg 25 mg, oral, 3 times daily PRN, dizziness, Starting on Tue02/01/21 at 0211 Given 02/01/2021 9:19 AM PARER 25 mg meclizine tablet 25 mg (ANTIVERT) Given 02/02/2021 8:09 PM PARER 25 mg 25 mg, oral, 4 times [...] 1 patch Left Shoulder patch (NICODERM CQ) PARER 1 patch, transdermal, Administer over 24 Hours, Daily, First dose on Tue02/01/21 at 0900 Medication Applied 02/02/2021 8:14 AM PARER 1 patch Right Arm Medication Applied 02/01/2021 9:13 AM PARER 1 patch Left Shoulder nicotine 21 mg/24 hr 1 Medication Applied 02/03/2021 2:55 PM 1 patch Left Shoulder patch (NICODERM CQ) PARER 1 patch, transdermal, Administer over 24 Hours, Daily, First dose on Tue02/03/21 at 1330 ondansetron ODT disintegrating tablet 4 mg Given 02/02/2021 10:2 4 PM PARER 4 mg (ZOFRAN-ODT) 4 mg, oral, Every 8 hours PRN, nausea, Starting on 01/31/21 at 2228, When splitting ODT at bedside, handle with gloves and a pill splitter to prevent moisture contact. Given 02/02/2021 2:36 PM PARER 4 mg Given 02/01/2021 1:12 AM PARER 4 mg oxyCODONE IR tablet 10 mg (ROXICODONE) Given 02/03/2021 5:02 PM PARER 10 mg 10 mg, oral, Every 6 hours PRN, moderate pain or score 4-6 of 10, Starting on 01/31/21 at 2229 Given 02/03/2021 2:42 AM PARER 10 mg Given 02/02/2021 8:08 PM PARER [address] tablet 40 mg (PROTONIX) Given 02/03/2021 4:58 PM PARER 40 mg 40 mg, oral, 2 times daily before breakfast and dinner, First dose on 02/01/21 at 0700, pantoprazole 40 mg oral twice daily was interchanged for esomeprazole 20 or 40 mg oral twice daily Swallow whole. Do NOT crush, chew, or split tablet. Given 02/03/2021 6:56 AM PARER 40 mg Given 02/02/2021 6:25 PM PARER 40 mg pregabalin capsule 150 mg (LYRICA) Given 02/01/2021 9:12 AM PARER 150 mg 150 mg, oral, Every morning, First dose on 02/01/21 at 0900 pregabalin capsule 300 mg (LYRICA) Given 01/31/2021 11:16 PM PARER 300 mg 300 mg, oral, Every evening, First dose on 01/31/21 at 2300 pregabalin capsule 300 mg (LYRICA) Given 02/03/2021 9:28 AM PARER 300 mg 300 mg, oral, Every morning, First dose (after last modification) on 02/02/21 at 0900 Given 02/02/2021 8:10 AM PARER 300 mg pregabalin capsule 600 mg (LYRICA) Given 02/02/2021 8:09 PM PARER 600 mg 600 mg, oral, Daily at bedtime, First dose (after last modification) on 02/01/21 at 2100 Given 02/01/2021 9:17 PM PARER 600 mg promethazine injection 6.25 mg (PHENERGA N) Given 02/01/2021 12:47 PM PARER 6.25 mg 6.25 mg, intravenous, Once, On 02/01/21 at 1030, For 1 dose QUEtiapine tablet 50 mg (SEROquel) Given 02/03/2021 12:39 AM PARER 50 mg 50 mg, oral, Bedtime PRN, agitation/sleep, Starting on 02/01/21 at 1310 rOPINIRole tablet 2 mg (REQUIP) Given 02/03/2021 2:42 AM PARER 2 mg 2 mg, oral, Daily PRN, restless legs, Starting on 01/31/21 at 2233 sennosides-docusate sodium 8.6-50 mg per Given 02/03/2021 9: 27 AM PARER 2 tablets tablet 2 tablet (SENOKOT-S) 2 [...] 300 mg (ZONEGRAN) Given 02/03/2021 9:28 AM PARER 300 mg 300 mg, oral, 2 times daily, First dose (after last modification) on 01/31/21 at 2245, Swallow whole. Do NOT crush, chew or open capsule. Given 02/02/2021 8:09 PM PARER 300 mg Given 02/02/2021 8:53 AM PARER 300 mg documented in this encounter Active and Recently Administered Medications Times are shown in PARER. Scheduled Medication Order 02/01/2021 02/02/2021 02/03/2021 apixaban tablet 5 mg (ELIQUIS) 2008 (Given - Pro vider: Marlene Grover R.N.) 4168 (Given - Provider: Karma Cervantes R.N.) 5 [...] RBrittonN.) 1 application, topical, 3 times daily LA N, mild pain or score 1-3 of [...] Provider: Leatha Vasquez R.N.)2007 (Given - Provider: Marlnee Grover R.N.) 0242 (Given - Provider: Marlene [...] tablet 4 mg (ZANAFLEX) 0210 (Held by [facility] er - Provider: Marbella Cutler M.D. [...] COVID19 Pending 01/31/2021 01/31/2021 01/31/2021 10:53 PM PARER Assessment Noted Time PHQ-9 Depression Total Score: 23 02/02/2021 11:[address] documented as of this encounter
--- OUTSIDE RECORDS SUMMARY | 2022-09-20 14:31 | XMS_ITS | Encounter Summary ---
:1965 Author Organization [facility] Address [address] [place] [address] Care Team Providers Name Role Phone Unavailable Primary Care Provider Unavailable Encounter Details Date Type Department Care Team Description 02/02/2021 Orders Only Department of Neurology in [place]isi Acevedo D.O. [place], [place] [address] [place] [address] 200 [place] [phone] (Wo rk) Social History Tobacco Use Types [...] you attend confucianist or Patient refused 2021 yarsanism services? Do [...]
--- OUTSIDE RECORDS SUMMARY | 2022-09-20 14:31 | XMS_ITS | Encounter Summary ---
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
--- OUTSIDE RECORDS SUMMARY | 2022-09-20 14:31 | XMS_ITS | Encounter Summary ---
:1965 Author Organization [facility] Address [address] [place] [address] Care Team Providers Name Role Phone Unavailable Primary Care Provider Unavailable Encounter Details Date Type Department Care Team Description 01/20/2021 Clinical Communication Department of Elvira Villalta, Neurology in [place], [place] [address] [place] [address] [address] [place] [phone] Social History Tobacco Use Types Packs/Day Years [...] you attend nondenominational or Patient refused 2021 uatsdin services? Do [...]
--- OUTSIDE RECORDS SUMMARY | 2022-09-20 14:31 | XMS_ITS | Encounter Summary ---
:1965 Author Organization [facility] Address 200 [place] [address] Care Team Providers Name Role Phone Unavailable Primary Care Provider Unavailable Reason for Visit Outpatient (Routine) - Closed Specialty Diagnoses / Procedures Referred By Contact Refer red To Contact Video Medicine Diagnoses Stroke Cerebrovascular Accident Personal History Robert Diehl [place] M.D. [address] [place] [address] Referral ID Status Reason Start Date Expiration Date Visits Requ ested Visits Authorized [id number] Closed 12/30/2020 12/30/2021 1 1 Encounter Details Date Type Department Care Team Description 02/02/2021 Virtual Visit Department of Robert Diehl Stroke Cere brovascular Neurology jimmy Celaya M.D. Accident Personal [place], [place] 200 [facility] History 200 [place] [phone] Social History Tobacco Use Types Packs/Day Years [...] you attend samaritan or Patient refused 2021 christian services? Do you belong to any clubs or No 05/17/2022 organizations such as samaritan groups, unions, [employer] or athletic groups, or school groups? How [...] over the weekend was transferred to [facility] service where she is currently admitted. Therefore she will not be present for today's 8:00 a.m. Outpatient consultation. Highly appreciative of the [facility] Stroke Service cares. No charge. Electronically signed by: Robert Diehl M.D. 02/02/21 7:46 AM YARN SPINNER SPINNER documented in this encounter Plan of Treatment Not on filedocumented as of this encounter Visit Diagnoses Diagnosis Stroke Cerebrovascular Accident Personal History documented in this encounter Additional Health Concerns Assessment Noted Time PHQ-9 Depression Total Score: 23 02/02/2021 11:[address] documented as of this encounter
--- OUTSIDE RECORDS SUMMARY | 2022-09-20 14:31 | XMS_ITS | Encounter Summary ---
:1965 Author Organization [facility] Address [address] [place] [address] Care Team Providers Name Role Phone Unavailable Primary Care Provider Unavailable Encounter Details Date Type Department Care Team Description 02/11/2021 Ancillary Procedure Department of Radiology Ridge Vega in [facility] raúl Quintana 200 [facility] 200 [place] [phone] (Wo rk) Social History Tobacco Use Types [...] you attend anabaptist or Patient refused 2021 baptism services? 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
--- OUTSIDE RECORDS SUMMARY | 2022-09-20 14:31 | XMS_ITS | Encounter Summary ---
:1965 Author Organization [facility] Address [address] [place] [address] Care Team Providers Name Role Phone Unavailable Primary Care Provider Unavailable Reason for Referral MRI/CAT/PET Scan (Routine) - Closed Specialty Diagnoses / Procedures Referred By Contact Refer red To Contact Radiology Diagnoses Ataxia Robert Diehl M.D. [facility] Procedures CT Head Neck Angiogram with IV Contrast [address] [place] [address] Referral ID Status Reason Start Date Expiration Date Visits Requ ested Visits Authorized [id number] Closed 12/31/2020 12/31/2021 1 1 WARE DEVELOPER Reason for Visit MRI/CAT/PET Scan (Routine) - Closed Specialty Diagnoses / Procedures Referred By Contact Refer red To Contact Radiology Diagnoses Ataxia Robert Diehl M.D. [facility] Procedures CT Head Neck Angiogram with IV Contrast [address] [place], [place] [address] Referral ID Status Reason Start Date Expiration Date Visits Requ ested Visits Authorized [id number] Closed 12/31/2020 12/31/2021 1 1 Encounter Details Date Type Department Care Team Description 01/30/2021 Hospital Encounter Department of Radiology, Akhil Diehl Ataxia [facility], in M[place]. [place], [place] [address] [facility] [address] [place] [phone] (Wo rk) Social History Tobacco Use Types [...] you attend bahai or Patient refused 2021 pentecostalism services? Do [...] this ANGIOGRAM WITH IV (most inpatients PM SOFTWARE DEVELOPER proced ure are in CONTRAST and all the results outpatients) section. documented in this encounter Results CT Head Neck Angiogram with IV Contrast (01/30/2021 3:24 PM SOFTWARE DEVELOPER) Anatomical Region Laterality Modality Head and Neck, Neuroradiology RST LOS, N/A C omputed Tomography, Computed Neuroradiology ARZ LOS, Neuroradiology T omography FLA [place] [facility] [employer] SSD Specimen (Source) Anatomical Collection Method Collection Time Re ceived Time Location / / Volume Laterality 01/30/2021 2:25 PM SOFTWARE DEVELOPER Impressions 01/30/2021 3:18 PM SOFTWARE DEVELOPER 1. 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 Slightly decreased high-grade stenosis a t the V3/4 junction with increased flow in the distal V4 segment. 2. Evolving, now chronic right cerebella r infarct. 3. 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 Narrative 01/30/2021 3:18 PM SOFTWARE DEVELOPER EXAM: CT HEAD NECK ANGIOGRAM WITH IV [...] normal caliber bilater al MCAs, ACAs and officer lieutenant. Patent anterior and right posterior communicating arteri [...] normal caliber bilater al MCAs, ACAs and officer lieutenant. Patent anterior and right posterior communicating arteri [...] mg iodine/mL solution Given 01/30/2021 2:29 PM SOFTWARE DEVELOPER 1 00 mL 1-200 mL (OMNIPAQUE) 1-200 mL, intravenous, Once in imaging, contrast, Starting on Tue01/30/21 at 1355, For 1 dose, Imaging Protocol Orders, Dose per Radiant Medication Guidelines sodium chloride (PF) 0.9 % injection 1-1 00 mL Given 01/30/2021 2:29 PM SOFTWARE DEVELOPER 35 mL 1-100 mL, intravenous, Once, On Tue01/30/21 at 1400, For 1 dose, Imaging Protocol Orders documented in this encounter Additional Health Concerns Assessment Noted Time PHQ-9 Depression Total Score: 5 04/05/2019 8:00 AM CDT documented as of this encounter
--- OUTSIDE RECORDS SUMMARY | 2022-09-20 14:31 | XMS_ITS | Encounter Summary ---
:1965 Author Organization [facility] Address [address] [place] [address] Care Team Providers Name Role Phone Unavailable Primary Care Provider Unavailable Reason for Visit Reason Onset Date Comments saul med request 02/03/2021 Encounter Details Date Type Department Care Team Description 02/03/2021 Clinical Communication Department of [facility], trinidad Mccarthy med request Nicotine Dependence, M.S., C.T.T.S., [facility] in [place], [address] [place] [address] [place] [address] [place], [place] [phone] (Work) [phone] Social History Tobacco Use Types Packs/Day Years [...] you attend anglican or Patient refused 2021 lutheran services? Do [...] 02/03/2021 10:16 AM CST Please send to [employer] in [facility] 21 mg patches with refills Nicotrol inhaler with refills Nicotine nasal spray with refills RY DRILLER HELPER documented in this encounter Plan of Treatment Not on filedocumented as of this encounter Visit Diagnoses Not on filedocumented in this encounter Additional Health Concerns Assessment Noted Time PHQ-9 Depression Total Score: 23 02/02/2021 11:[address] documented as of this encounter
--- OUTSIDE RECORDS SUMMARY | 2022-09-20 14:31 | XMS_ITS | Encounter Summary ---
:1965 Author Organization [facility] Address [address] [place] [address] Care Team Providers Name Role Phone Unavailable Primary Care Provider Unavailable Encounter Details Date Type Department Care Team Description 02/11/2021 Ancillary Procedure Department of Radiology Ridge Vega in [facility] raúl Quintana 200 [facility] 200 [place] [phone] (Wo rk) Social History Tobacco Use Types [...] you attend christianity or Patient refused 2021 church services? Do [...] thalami (series 3 image 36), bilateral FIRE OPERATIONS FORESTER 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 thalami (series 3 image 36), bilateral FIRE OPERATIONS FORESTER 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 thalami (series 3 image 36), bilateral FIRE OPERATIONS FORESTER 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 thalami (series 3 image 36), bilateral FIRE OPERATIONS FORESTER 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 thalami (series 3 image 36), bilateral FIRE OPERATIONS FORESTER 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 thalami (series 3 image 36), bilateral FIRE OPERATIONS FORESTER 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
--- OUTSIDE RECORDS SUMMARY | 2022-09-20 14:31 | XMS_ITS | Encounter Summary ---
:1965 Author Organization [facility] Address [address] [place] [address] Care Team Providers Name Role Phone Unavailable Primary Care Provider Unavailable Encounter Details Date Type Department Care Team Description 02/03/2021 Orders Only Department of Neurology [place] Kumar S troke ([facility]) (Primary in [facility] Lilian Dx) 200 [facility] 200 [place] [address] [phone] Social History Tobacco Use Types Packs/Day Years [...] you attend restorationist or Patient refused 2021 yarsanism services? Do [...]
--- OUTSIDE RECORDS SUMMARY | 2022-09-20 14:31 | XMS_ITS | Encounter Summary ---
:1965 Author Organization [facility] Address [address] [place] [address] Care Team Providers Name Role Phone Unavailable Primary Care Provider Unavailable Encounter Details Date Type Department Care Team Description 02/05/2021 Orders Only Pharmacy Prior Auth RO Elsewhere, Pcp [phone] Social History Tobacco Use Types Packs/Day Years [...] you attend presybeterian or Patient refused 2021 uatsdin services? Do [...]
--- OUTSIDE RECORDS SUMMARY | 2022-09-20 14:31 | XMS_ITS | Encounter Summary ---
:1965 Author Organization [facility] Address [address] [place] [address] Care Team Providers Name Role Phone Unavailable Primary Care Provider Unavailable Reason for Visit Reason Comments Michel Encounter Details Date Type Department Care Team Description 01/26/2021 Clinical Communication Department of Robert Diehl W8B/[facility] in .[place], [place] 200 [facility] 200 [place] [address] [phone] Social History Tobacco Use Types Packs/Day Years [...] 01/26/2021 5:19 PM CST Great thank you PULLER Addendum Note - Robert Diehl M.D. - 01/26/2021 2:50 PM SIDE PULLER Addended by: ROBERT DIEHL on: 01/26/2021 02:50 PM Modules accepted: Orders PULLER Telephone Encounter - Robert Diehl M.D. - 01/26/2021 2:49 PM CST Believe MRI is ordered now. PULLER Telephone Encounter - Robert Diehl M.D. - 01/26/2021 2:47 PM CST I am sorry to learn of the patient's additional symptoms Unfortunately we cannot react as quickly as the emergency department which was recommended locally I will order a brain MRI and in-person or video visit to follow-up. Thank you PULLER Telephone Encounter - Allyssa Amaya - 01/26/2021 12:56 PM CST Patient calls checking the status of this request. Thank you. PULLER documented in this encounter Plan of Treatment Not on filedocumented as of this encounter Visit Diagnoses Diagnosis Stroke Cerebrovascular Accident Personal History - Primary documented in this encounter Additional Health Concerns Assessment Noted Time PHQ-9 Depression Total Score: 5 04/05/2019 8:00 AM CDT documented as of this encounter
--- OUTSIDE RECORDS SUMMARY | 2022-09-20 14:31 | XMS_ITS | Encounter Summary ---
:1965 Author Organization [facility] Address [address] [place] [address] Care Team Providers Name Role Phone Unavailable Primary Care Provider Unavailable Reason for Visit Reason Comments Pre-visit Intake Encounter Details Date Type Department Care Team Description 01/29/2021 Clinical Communication Department of Robert Diehl e-visit Intake Neurology in Lilian Celaya [place], [facility] [place], [place] [address] [place] [address] [place], [place] [phone] (Work) [phone] Social History Tobacco Use Types Packs/Day Years [...]
--- OUTSIDE RECORDS SUMMARY | 2022-09-20 14:31 | XMS_ITS | Encounter Summary ---
:1965 Author Organization [facility] Address [address] [place] [address] Care Team Providers Name Role Phone Unavailable Primary Care Provider Unavailable Encounter Details Date Type Department Care Team Description 01/20/2021 Anticoagulation Visit Department of Neurology Elvira Villalta, in [facility] R.N. [address] [facility] [address] [place] [phone] Social History Tobacco Use Types Packs/Day Years [...] you attend samaritan or Patient refused 2021 congregation services? Do [...] Aguila's nurse at [facility]. She states they have received our fax [...] Transfer of anticoagulation management back to PCP. CKER documented in this encounter Plan of Treatment Not on filedocumented as of this encounter Visit Diagnoses Not on filedocumented in this encounter Additional Health Concerns Assessment Noted Time PHQ-9 Depression Total Score: 5 04/05/2019 8:00 AM CDT documented as of this encounter
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
--- OUTSIDE RECORDS SUMMARY | 2022-09-20 14:31 | XMS_ITS | Encounter Summary ---
:1965 Author Organization [facility] Address [address] [place] [address] Care Team Providers Name Role Phone Unavailable Primary Care Provider Unavailable Encounter Details Date Type Department Care Team Description 02/16/2021 Anesthesia Event Department of Radiology Liban Sunshine APRN, VELVET CUTTER, DNAP [address] [place] [phone] in [facility] Deep Velasquez M.D. [address] [place] [phone] [place] [phone] Anesthesia Record Procedure Summary Procedure Name Responsible Anesthesia Start Anesthesia Stop Anesthesiologist Time Time IR CEREBRAL Liban Sunshine APRN, 02/16/21 0825 02/16/21 1100 INTRACRANIAL ARTERY VELVET CUTTER, DNAP EMBOLIZATION Events Date Time Event Comment [...] h andoff to the receiving staff during [facility] we 1. Identified the patient [...] 1,000 units/mL injection 6,000 Units heparin standard 28602 Units/250 mL in 0.45 % Sodium C [...] you attend yazdanism or Patient refused 2021 yazidism services? Do you belong to any clubs or No 05/17/2022 organizations such as yazdanism groups, [email or web address], [employer] or athletic groups, or school groups? How [...] Room / Location: Department of Radiology in [place], [place] Anesthesia Start: 08 Anesthesia Stop: 1100 [...] Dr. Castillo. Location: Department of Radiology in [place], [place] Pertinent components of the patient's history [...] with patient /legal guardian or through an utility bag assembler. Risks/Benefits/Alternatives of Blood transfusion discussed with patient [...]
--- OUTSIDE RECORDS SUMMARY | 2022-09-20 14:32 | XMS_ITS | Encounter Summary ---
:1965 Author Organization [facility] Address [address] [place] [address] Care Team Providers Name Role Phone Unavailable Primary Care Provider Unavailable Encounter Details Date Type Department Care Team Description 09/15/2020 Ancillary Procedure Department of Robert Diehl Aneurysm Radiology jimmy Celaya M.D. Nonruptured (FORMERLY [facility]) [place], [place] 200 [facility] 200 [place] [phone] Social History Tobacco Use Types Packs/Day Years [...] nt right vertebral artery. RADHA, MCA, and jewel sorter are patent. Neck MRA: Conventional three-vessel arch [...] nt right vertebral artery. RADHA, MCA, and jewel sorter are patent. Neck MRA: Conventional three-vessel arch [...]
--- OUTSIDE RECORDS SUMMARY | 2022-09-20 14:32 | XMS_ITS | Encounter Summary ---
:1965 Author Organization [facility] Address [address] [place] [address] Care Team Providers Name Role Phone Unavailable Primary Care Provider Unavailable Reason for Referral Outpatient (Routine) - Closed Specialty Diagnoses / Procedures Referred By Contact Refer red To Contact Otorhinolaryngology Darlin Olmedo M.D . [address] [address] Referral ID Status Reason Start Date Expiration Date Visits Requ ested Visits Authorized [id number] Closed 12/18/2019 12/17/2020 1 1 CONVERSION OPERATOR Reason for Visit Outpatient (Routine) - Closed Specialty Diagnoses / Procedures Referred By Contact Refer red To Contact Otorhinolaryngology Darlin Olmedo M.D . [address] [address] Referral ID Status Reason Start Date Expiration Date Visits Requ ested Visits Authorized [id number] Closed 11/29/2019 11/28/2020 1 1 Encounter Details Date Type Department Care Team Description 12/18/2019 Office Visit Department of Darlin Olmedo Mucocele Nasa l Sinus Otorhinolaryngology jimmy Brumfield M.D. (Primary Dx) [place] [address] [facility] 200 [place] [phone] Social History Tobacco Use Types Packs/Day Years [...] you attend amish or Patient refused 2021 yazdanism services? Do [...] we will refer to neurology headache clinic. CONVERSION OPERATOR documented in this encounter Plan of [...]
--- OUTSIDE RECORDS SUMMARY | 2022-09-20 14:32 | XMS_ITS | Encounter Summary ---
:1965 Author Organization [facility] Address [address] [place] [address] Care Team Providers Name Role Phone Unavailable Primary Care Provider Unavailable Encounter Details Date Type Department Care Team Description 12/08/2019 Documentation Department of Darlin Olmedo, Otorhinolaryngology in [place], [place] [address] [place] [address] 200 [place] [phone] Social History Tobacco Use Types Packs/Day Years [...] you attend anglican or Patient refused 2021 nondenominational services? Do [...] Chronicpain for spine pathology with oxycodone use half-way. Additional doses of oxycodone not sufficient for [...] she is currently having. -Dr. Clemente Medley BER RUNNER documented in this encounter Plan of Treatment Not on filedocumented as of this encounter Visit Diagnoses Not on filedocumented in this encounter Additional Health Concerns Assessment Noted Time PHQ-9 Depression Total Score: 5 04/05/2019 8:00 AM CDT documented as of this encounter
--- OUTSIDE RECORDS SUMMARY | 2022-09-20 14:32 | XMS_ITS | Encounter Summary ---
:1965 Author Organization [facility] Address [address] [place] [address] Care Team Providers Name Role Phone Unavailable Primary Care Provider Unavailable Encounter Details Date Type Department Care Team Description 08/05/2020 Clinical Communication Department of Honorio, Otorhinolaryngology in [place], [place] [address] [place], [place] [phone] [facility] [phone] [place] [phone] Social History Tobacco Use Types Packs/Day Years [...] you attend sikh or Patient refused 2021 adventism services? Do [...] called patient to schedule COVID testing at [place] prior to appointment. Didn't answer so jessica [...]
--- OUTSIDE RECORDS SUMMARY | 2022-09-20 14:32 | XMS_ITS | Encounter Summary ---
:1965 Author Organization [facility] Address [address] [place] [address] Care Team Providers Name Role Phone Unavailable Primary Care Provider Unavailable Encounter Details Date Type Department Care Team Description 01/05/2021 Anticoagulation Visit Department of Neurology Elvira Villalta, in [facility] R.N. 12[address] [facility] [address] [place] [phone] Social History Tobacco Use Types Packs/Day Years [...] you attend worship or Patient refused 2021 uatsdin services? Do [...] an INR at her outside clinic in [place], [place] today and I called the lab [phone] and was told she did not report [...] advised for today, she report to the [place] lab as scheduled. Ms. Mosquera states she will do that. RECOMMENDED LEVEL OF CARE. The patient/caller is willing and able to follow the nurse's recommendation. RESPONSE TO ADVICE GIVEN. Patient/caller able to teach back. REFERENCES UTILIZED. Nursing clinical judgment utilized. Other interventions or information: Provider advice. TYPE OF PHONE CALL. INR management V BELT BUILDER Elvira Villalta R.N. - 01/05/2021 4:06 PM CST Patient's INR today is 1.47. Discussed with Dr. Neri Acevedo ([id number]) who advises that the patient take 7.5 [...] OF PHONE CALL. Test results, symptom assessment. V BELT BUILDER documented in this encounter Plan of Treatment Not on filedocumented as of this encounter Procedures Procedure Name Priority Date/Time Associated Comments Diagnosis PROTHROMBIN TIME Routine 01/05/2021 3:15 PM Resul ts for this (PT), P V BELT BUILDER procedure are i n the results section. documented in this encounter Results Prothrombin Time (PT) (01/05/2021 3:15 PM V BELT BUILDER) P athologist Signature EXT INR 1.47 OTHER (SPECIFY IN RADIOGRAPHER MAMMOGRAPHER) Specimen (Source) Anatomical Collection Method Collection Time Re ceived Time Location / / Volume Laterality Blood (Blood, 01/05/2021 3:15 PM Venous) V BELT BUILDER Narrative This result has an attachment that is no t available. Resulting Agency Comment [facility] Historical Provider LAB BLOOD ADD-ON Performing Organization Address City/State/ZIP Code Phon e Number OTHER (SPECIFY IN RADIOGRAPHER MAMMOGRAPHER) OTHER (SPECIFY IN RADIOGRAPHER MAMMOGRAPHER) N/A documented in this encounter Visit Diagnoses Not on filedocumented in this encounter Additional Health Concerns Assessment Noted Time PHQ-9 Depression Total Score: 5 04/05/2019 8:00 AM CDT documented as of this encounter
--- OUTSIDE RECORDS SUMMARY | 2022-09-20 14:32 | XMS_ITS | Encounter Summary ---
:1965 Author Organization [facility] Address [address] [place] [address] Care Team Providers Name Role Phone Unavailable Primary Care Provider Unavailable Encounter Details Date Type Department Care Team Description 12/07/2019 Anesthesia Event RST ROMB MAIN OR Leonides Walker, [address] [facility] [place] [address] [address] [place] [address] [place] [phone] (Wo rk) Anesthesia Record Procedure Summary Procedure Name Responsible Anesthesia Start Anesthesia Stop Anesthesiologist Time Time SINUSOTOMY ENDOSCOPY Leonides Walkre M.D. 12/07/19 1234 1434 FRONTAL. (Bilateral: Nose) [...] h andoff to the receiving staff during [facility] we 1. Identified the patient 2. Ident [...] Simin valentine, Jey García, (created via procedure CREATIVE SERVICES MANAGER, DELIVERY MAN CREATIVE SERVICES MANAGER, CRN A documentation); Mask Ventilation: Easy mask; [...] you attend alevism or Patient refused 2021 rastafari services? Do you belong to any clubs or No 05/17/2022 organizations such as alevism groups, unions, [employer] or athletic groups, or school groups? How [...] Procedure Summary Date: 12/07/19 Room / Location: [address] [facility] in [place], [place] Anesthesia Start: 1234 Anesthesia Stop: 1434 [...] Promethazine; otherwise, uneventful recovery with outpt dispo. EWATER DESIGN ENGINEER Anesthesia Procedure Notes - Gini Garcia [...] Procedure outcome: successful Airway event: no complications EWATER DESIGN ENGINEER Anesthesia Preprocedure Evaluation - Leonides Walker M.D. - 12/07/2019 11:59 AM CST Preprocedure Anesthesia & H&P Assessment Procedure Summary Date/Time: 12/07/19 1119 Procedures: SINUSOTOMY ENDOSCOPY FRONTAL. (Bilateral Nose) EXTRADURAL COMPUTER NAVIGATION. 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 Location: [address] [facility] in [place], [place] Provider: Darlin Olmedo M.D. Pertinent components [...] #11 Patent Foramen Ovale (HCC) Noted on [id number]/ ECHO otherwise normal. I will not pursue [...] with patient /legal guardian or through an post anesthesia care unit nurse. The use of blood products not discussed Approval to Proceed: approved for anesthesia EWATER DESIGN ENGINEER documented in this encounter Plan of Treatment Not on filedocumented as of this encounter Procedures Procedure Name Priority Date/Time Associated Comments Diagnosis LDA ANE ENDOTRACHEAL Routine 12/07/2019 12:47 Res ults for this AIRWAY PM WASTEWATER DESIGN ENGINEER procedure are i n the results section. documented in this encounter Results LDA ANE ENDOTRACHEAL AIRWAY (12/07/2019 12:47 PM WASTEWATER DESIGN ENGINEER) Narrative Gini Garcia APRN, CRNA - 2019 12:47 PM WASTEWATER DESIGN ENGINEER Gini Garcia APRN, CRNA ? 12/07/2019 12:49 [...] dexamethasone injection (DECADRON) Given 12/07/2019 12:43 PM WASTEWATER DESIGN ENGINEER 4 mg As needed, Starting on Tue12/07/19 at 1243, Anesthesia Intra-op ePHEDrine (PF) injection Given 12/07/2019 12:48 PM WASTEWATER DESIGN ENGINEER 5 mg intravenous, As needed, Starting on Tue12/07/19 at 1242, Anesthesia Intra-op Given 12/07/2019 12:42 PM WASTEWATER DESIGN ENGINEER 25 mg fentaNYL injection 25 mcg (SUBLIMAZE) Given 12/07/2019 2:32 PM WASTEWATER DESIGN ENGINEER 25 mcg 25 mcg, intravenous, Every 2 min PRN, For pain 4 or greater (maximum 100 mcg). If max dose of Fentanyl is reached and if pain is greater than 4, discontinue Fentanyl: give Hydromorphone, Starting on Tue12/07/19 at 1145, Pre-Op lactated ringers New Bag 12/07/2019 12:39 PM WASTEWATER DESIGN ENGINEER intravenous, Continuous Infusion: Per Instructions PRN, Starting on Tue12/07/19 at 1239, Anesthesia Intra-op lidocaine (PF) (cardiac) injection Given 12/07/2019 12:40 PM WASTEWATER DESIGN ENGINEER 100 mg intravenous, As needed, Starting on Tue12/07/19 at 1240, Anesthesia Intra-op ondansetron (PF) injection (ZOFRAN) Given 12/07/2019 1:57 PM WASTEWATER DESIGN ENGINEER 4 mg intravenous, As needed, Starting on Tue12/07/19 at 1357, Anesthesia Intra-op phenylephrine injection Given 12/07/2019 12:50 PM WASTEWATER DESIGN ENGINEER 100 mcg intravenous, As needed, Starting on Tue12/07/19 at 1246, Anesthesia Intra-op Given 12/07/2019 12:48 PM WASTEWATER DESIGN ENGINEER 100 mcg Given 12/07/2019 12:46 PM WASTEWATER DESIGN ENGINEER 100 mcg propofol 10 mg/mL infusion Rate/Dose 12/07/2019 75 mcg/kg/min 34.4 m L/hr (DIPRIVAN) Change 12:46 PM WASTEWATER DESIGN ENGINEER intravenous, Continuous Infusion: Per Instructions PRN, Starting on Tue12/07/19 at 1241, Anesthesia Intra-op New Bag 12/07/2019 12:41 PM WASTEWATER DESIGN ENGINEER 250 mcg/kg/min 115 mL/hr propofol injection (DIPRIVAN) Given 12/07/2019 12:42 PM WASTEWATER DESIGN ENGINEER 100 mg intravenous, As needed, Starting on Tue12/07/19 at 1242, Anesthesia Intra-op remifentanil 20 mcg/mL in Rate/Dose 12/07/2019 1:43 0.1 mcg/kg/min 2 2.9 mL/hr NaCl 0.9% 100 mL infusion Change PM WASTEWATER DESIGN ENGINEER (ULTIVA) Continuous Infusion: Per Instructions PRN, Starting on Tue12/07/19 at 1246, Anesthesia Intra-op Rate/Dose Change 12/07/2019 12:53 PM WASTEWATER DESIGN ENGINEER 0.2 mcg/kg/min 45.8 mL/hr New Bag 12/07/2019 12:46 PM WASTEWATER DESIGN ENGINEER 0.25 mcg/kg/min 57.3 mL/hr succinylcholine (PF) injection (ANECTINE ) Given 12/07/2019 12:42 PM WASTEWATER DESIGN ENGINEER 10 mg intravenous, As needed, Starting on Tue12/07/19 at 1242, Anesthesia Intra-op vancomycin in NaCl 0.9% IVPB 1,250 mg Given 12/07/2019 12:51 PM WASTEWATER DESIGN ENGINEER 1.25 g 1,250 mg (rounded from [...]
--- OUTSIDE RECORDS SUMMARY | 2022-09-20 14:32 | XMS_ITS | Encounter Summary ---
:1965 Author Organization [facility] Address [address] [place] [address] Care Team Providers Name Role Phone Unavailable [...] you attend quaker or Patient refused 2021 methodist services? Do [...] 12/07/2019 12:15 Results for this EXAM PM QUANTITATIVE DEVELOPER procedure are i n the results section. documented in this encounter Results NOSE-Otorhinolaryngology Image Exam (12/07/2019 12:15 PM QUANTITATIVE DEVELOPER) Specimen (Source) Anatomical Collection Method Collection Time Re ceived Time Location / / Volume Laterality 12/07/2019 12:15 PM QUANTITATIVE DEVELOPER Narrative IIMS - 12/07/2019 2:07 PM QUANTITATIVE DEVELOPER This order has been created and auto-finalized [...]
--- OUTSIDE RECORDS SUMMARY | 2022-09-20 14:32 | XMS_ITS | Encounter Summary ---
:1965 Author Organization [facility] Address [address] [place] [address] Care Team Providers Name Role Phone Unavailable Primary Care Provider Unavailable Reason for Referral MRI/CAT/PET Scan (Routine) - Closed Specialty Diagnoses / Procedures Referred By Contact Refer red To Contact Radiology Diagnoses Ataxia Robert Fowler M.D. [facility] Procedures CT Head Neck Angiogram with IV Contrast [address] [place] [address] Referral ID Status Reason Start Date Expiration Date Visits Requ ested Visits Authorized [id number] Closed 12/31/2020 12/31/2021 1 1 NESS CONTROL MANAGER Outpatient (Routine) - Closed Specialty Diagnoses / Procedures Referred By Contact Refer red To Contact Video Medicine Diagnoses Stroke Cerebrovascular Accident Personal History Robert Fowler [facility] Margot Quintana [address] [place] [address] Referral ID Status Reason Start Date Expiration Date Visits Requ ested Visits Authorized [id number] Closed 12/30/2020 12/30/2021 1 1 NESS CONTROL MANAGER MRI/CAT/PET Scan (Routine) - Closed Specialty Diagnoses / Procedures Referred By Contact Refer red To Contact Radiology Diagnoses Ataxia Robert Fowler M.D. [facility] Procedures CT Head Neck Angiogram with IV Contrast [address] [place] [address] Referral ID Status Reason Start Date Expiration Date Visits Requ ested Visits Authorized [id number] Closed 12/30/2020 12/30/2021 1 1 NESS CONTROL MANAGER MRI/CAT/PET Scan (Routine) - Closed Specialty Diagnoses / Procedures Referred By Contact Refer red To Contact Radiology Diagnoses Stroke Cerebrovascular Accident Personal History Robert Fowler M.D. [facility] Procedures CT Head without IV Contrast [address] [place] [address] Referral ID Status Reason Start Date Expiration Date Visits Requ ested Visits Authorized [id number] Closed 12/30/2020 12/30/2021 1 1 NESS CONTROL MANAGER Reason for Visit Reason Comments Symptom Assessment Encounter Details Date Type Department Care Team Description 12/22/2020 Clinical Communication Department of Robert Fowler mptom Assessment Neurology jimmy Celaya M.D. [place], [address] [place], [place] [address] [facility] [address] [place], [place] [phone] (Work) [phone] Social History Tobacco Use Types Packs/Day Years [...] Robert Fowler M.D. - 12/31/2020 5:17 PM BUSINESS CONTROL MANAGER Addended by: ROBERT FOWLER on: 12/31/2020 05:17 PM Modules accepted: Orders NESS CONTROL MANAGER Addendum Note - Robert Fowler M.D. - 12/30/2020 8:34 AM BUSINESS CONTROL MANAGER Addended by: ROBERT FOWLER on: 12/30/2020 08:34 AM Modules accepted: Orders NESS CONTROL MANAGER Telephone Encounter - Zuly Alex R.N. - 12/29/2020 4:48 PM CST The patient telephones back today. She did present to the local ED in [place] for evaluation of her vertigo. She shares [...] needs to get in contact with her [facility] neurologist. The patient reports that [...] 911 or have someone drive her to [facility] as well. She agrees to call 911 for recurrent episodes. RECOMMENDED LEVEL OF CARE. The patient/caller is willing and able to follow the nurse's recommendation. RESPONSE TO ADVICE GIVEN. Patient/caller able to teach back. REFERENCES UTILIZED. Nursing clinical judgment utilized. Other interventions or information: Provider advice. TYPE OF PHONE CALL. Symptom assessment. NESS CONTROL MANAGER Telephone Encounter - Robert Fowler M.D. [...] by: Robert Fowler M.D. 12/23/20 8:21 AM BUSINESS CONTROL MANAGER NESS CONTROL MANAGER Telephone Encounter - Zuly Alex R.N. - 12/22/2020 5:25 PM CST 5:17 pm. Tried calling to assure she could reach her son to take her to the ED. No answer. NESS CONTROL MANAGER Telephone Encounter - Zuly Alex R.N. [...] her to the nearest emergency room or [id number]. She expressed concerns about going to the [...] the nearest ED which would be in [place]. He did not answer. I offered to [...] advice. TYPE OF PHONE CALL. Symptom assessment. NESS CONTROL MANAGER Telephone Encounter - Robert Fowler M.D. - 12/22/2020 3:29 PM CST Please call patient in triage whether she needs to be seen in the local emergency department for concern of acute stroke? NESS CONTROL MANAGER documented in this encounter Plan of Treatment Scheduled Referrals Name Type Priority Associated Diagnoses Order S chedule Video anyplace Outpatient Referral Routine Stroke Cerebrovascu lar Expected: visit Accident Personal 12/30/2020 , History Expires: 12/30/2023 documented as of this encounter Results CT Head Neck Angiogram with IV Contrast (01/30/2021 3:24 PM BUSINESS CONTROL MANAGER) Anatomical Region Laterality Modality Head and Neck, Neuroradiology RST LOS, N/A C omputed Tomography, Computed Neuroradiology ARZ LOS, Neuroradiology T omography FLA LOS Specimen (Source) Anatomical Collection Method Collection Time Re ceived Time Location / / Volume Laterality 01/30/2021 2:25 PM BUSINESS CONTROL MANAGER Impressions 01/30/2021 3:18 PM BUSINESS CONTROL MANAGER 1. 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 Slightly decreased high-grade stenosis a t the V3/4 junction with increased flow in the distal V4 segment. 2. Evolving, now chronic right cerebella r infarct. 3. 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 Narrative 01/30/2021 3:18 PM BUSINESS CONTROL MANAGER EXAM: CT HEAD NECK ANGIOGRAM WITH [...] normal caliber bilater al MCAs, ACAs and cleaners. Patent anterior and right posterior communicating arteri [...] normal caliber bilater al MCAs, ACAs and cleaners. Patent anterior and right posterior communicating arteri [...] Angiogram with IV Contrast (12/31/2020 3:34 PM BUSINESS CONTROL MANAGER) Anatomical Region Laterality Modality Head and Neck, Neuroradiology RST LOS, N/A C omputed Tomography, Computed Neuroradiology ARZ LOS, Neuroradiology T omography FLA [facility] Specimen (Source) Anatomical Collection Method Collection Time Re ceived Time Location / / Volume Laterality 12/31/2020 3:49 PM BUSINESS CONTROL MANAGER Impressions 12/31/2020 4:54 PM BUSINESS CONTROL MANAGER 1. Evolving right cerebellar infarct with [...] oid ICA aneurysms. Narrative 12/31/2020 4:54 PM BUSINESS CONTROL MANAGER EXAM: CT HEAD WITHOUT IV CONTRAST, [...] Findings discussed with ordering physicDr. Fazal crandall ([id number]) at 4:54 PM on 12/31/2020. Procedure Note [...] discussed with ordering physici Dr. Fazal abbasi ([id number]) at 4:54 PM on 12/31/2020. IMPRESSION: 1. [...] Head without IV Contrast (12/31/2020 3:34 PM BUSINESS CONTROL MANAGER) Anatomical Region Laterality Modality Head, Neuroradiology RST LOS, N/A Computed T omography, Computed Neuroradiology ARZ LOS, Neuroradiology T omography FLA LOS Specimen (Source) Anatomical Collection Method Collection Time Re ceived Time Location / / Volume Laterality 12/31/2020 3:49 PM BUSINESS CONTROL MANAGER Impressions 12/31/2020 4:54 PM BUSINESS CONTROL MANAGER 1. Evolving right cerebellar infarct with [...] oid ICA aneurysms. Narrative 12/31/2020 4:54 PM BUSINESS CONTROL MANAGER EXAM: CT HEAD WITHOUT IV CONTRAST, [...] discussed with ordering physici Dr. Fazal abbasi ([id number]) at 4:54 PM on 12/31/2020. Procedure Note [...] Findings discussed with ordering Dr. Fazal ching ([id number]) at 4:54 PM on 12/31/2020. IMPRESSION: 1. [...]
--- OUTSIDE RECORDS SUMMARY | 2022-09-20 14:32 | XMS_ITS | Encounter Summary ---
:1965 Author Organization [facility] Address [address] [place] [address] Care Team Providers Name Role Phone Unavailable Primary Care Provider Unavailable Encounter Details Date Type Department Care Team Description 01/16/2021 Anticoagulation Visit Department of Elvira Villalta ([facility]) (Primary Dx); Neurology in [place], [place]. Piercer Anticoagulant Treatment [place] [address] [place], [place] [address] [place] [address] [place], [place] [phone] (Work) [phone] Social History Tobacco Use Types Packs/Day Years [...] Target INR 2.0-3.[address] Argenis Diehl ([id number]). The patient was scheduled for an INR recheck on 01/19/21 but we received a message that she had it drawn today, 01/16/21, by [facility] Nurse. I spoke with RADHA Roman [facility] and she relays that the home POC INR today is 3.9. I discussed this with Dr. Argenis Diehl ([phone]) who advises that the patient follow a [...] her primary care provider, Dr. Neri Blackwell, [facility], [place], [place]. I have put in a call for Dr. Blackwell's care team to call us back. Will schedule an INR recheck for 01/20/21. I will fax a standing INR order to RADHA Roman, [facility], phone # [phone], fax #[phone]. She will fax results back to us. [...] OF PHONE CALL. Test results, symptom assessment. OGRAPHIC DEVELOPER AND PRINTER documented in this encounter Plan of Treatment Not on filedocumented as of this encounter Procedures Procedure Name Priority Date/Time Associated Comments Diagnosis PROTHROMBIN TIME Routine 01/16/2021 2:10 PM Resul ts for this (PT), P PHOTOGRAPHIC DEVELOPER AND PRINTER procedure are i n the results section. documented in this encounter Results Prothrombin Time (PT) (01/16/2021 2:10 PM PHOTOGRAPHIC DEVELOPER AND PRINTER) P athologist Signature EXT INR 3.90 OTHER (SPECIFY IN SALVAGE GRINDER) Specimen (Source) Anatomical Collection Method Collection Time Re ceived Time Location / / Volume Laterality Blood (Blood, 01/16/2021 2:10 PM Venous) PHOTOGRAPHIC DEVELOPER AND PRINTER Resulting Agency Comment [facility] Historical Provider LAB BLOOD ADD-ON Performing Organization Address City/State/ZIP Code Phon e Number OTHER (SPECIFY IN SALVAGE GRINDER) OTHER (SPECIFY IN SALVAGE GRINDER) N/A documented in this encounter Visit Diagnoses Diagnosis Stroke (HCC) - Primary Piercer (Current) Anticoagulant Treatm ent documented in this encounter Additional Health Concerns Assessment Noted Time PHQ-9 Depression Total Score: 5 04/05/2019 8:00 AM CDT documented as of this encounter
--- OUTSIDE RECORDS SUMMARY | 2022-09-20 14:32 | XMS_ITS | Encounter Summary ---
:1965 Author Organization [facility] Address [address] [place] [address] Care Team Providers Name Role Phone Unavailable Primary Care Provider Unavailable Encounter Details Date Type Department Care Team Description 01/07/2020 Diagnostic Division of Pulmonary Akhil Diehl M.D. [facility] Medicine in [place], [facility] [address] [place], [place] 200 [facility] [address] [place], [place] [address] [phone] Social History Tobacco Use Types Packs/Day Years [...] you attend yazidism or Patient refused 2021 samaritan services? Do [...] Organization Address City/State/ZIP Code Phon e Number [place] [facility] documented in this encounter Visit Diagnoses Diagnosis Fatigue documented in this encounter Additional Health Concerns Assessment Noted Time PHQ-9 Depression Total Score: 5 04/05/2019 8:00 AM CDT documented as of this encounter
--- OUTSIDE RECORDS SUMMARY | 2022-09-20 14:32 | XMS_ITS | Encounter Summary ---
:1965 Author Organization [facility] Address [address] [place] [address] Care Team Providers Name Role Phone Unavailable [...] you attend restorationist or Patient refused 2021 quaker services? Do [...] 12/18/2019 1:57 Results for this EXAM PM CHANNEL MARKETING SPECIALIST procedure are i n the results section. documented in this encounter Results NOSE-Otorhinolaryngology Image Exam (12/18/2019 1:57 PM CHANNEL MARKETING SPECIALIST) Specimen (Source) Anatomical Collection Method Collection Time Re ceived Time Location / / Volume Laterality 12/18/2019 1:57 PM CHANNEL MARKETING SPECIALIST Narrative [facility] - 12/18/2019 1:57 PM CHANNEL MARKETING SPECIALIST This order has been created and [...]
--- OUTSIDE RECORDS SUMMARY | 2022-09-20 14:32 | XMS_ITS | Encounter Summary ---
:1965 Author Organization [facility] Address [address] [place] [address] Care Team Providers Name Role Phone Unavailable Primary Care Provider Unavailable Reason for Visit Reason Onset Date Comments Medication Question 01/08/2020 Encounter Details Date Type Department Care Team Description 01/08/2020 Clinical Department of Mobile, Medication Communication Otorhinolaryngology in [place] Manuel [place], [place] 200 [facility] [address] [place] [phone] [place] [address] Social History Tobacco Use Types Packs/Day Years [...] not covered. Patient will do regular Flonase CHAIN DYEING MACHINE OPERATOR Telephone Encounter - Donna Martines - 01/08/2020 4:21 PM CST [facility] called about the Fluticasone Propionate (Flonase) prescription that was put through today. The insurance will not cover it because at the end of the SIG it says Sensimist. Please call the pharmacy at [phone], or place another order. Thank you, Donna CHAIN DYEING MACHINE OPERATOR documented in this encounter Plan of Treatment Not on filedocumented as of this encounter Visit Diagnoses Not on filedocumented in this encounter Additional Health Concerns Assessment Noted Time PHQ-9 Depression Total Score: 5 04/05/2019 8:00 AM CDT documented as of this encounter
--- OUTSIDE RECORDS SUMMARY | 2022-09-20 14:32 | XMS_ITS | Encounter Summary ---
:1965 Author Organization [facility] Address [address] [place] [address] Care Team Providers Name Role Phone Unavailable Primary Care Provider Unavailable Encounter Details Date Type Department Care Team Description 08/06/2020 Clinical Communication Department of Honorio, Otorhinolaryngology in [place], [place] [address] [place] [address] [facility] [phone] [place] [phone] Social History Tobacco Use Types Packs/Day Years [...] you attend sabianist or Patient refused 2021 quaker services? Do [...] states that she had them done at [facility]. I called the facility and [...] she had a CT Scan today in [place]. If her doctor there feels she needs [...]
--- OUTSIDE RECORDS SUMMARY | 2022-09-20 14:32 | XMS_ITS | Encounter Summary ---
:1965 Author Organization [facility] Address [address] [place] [address] Care Team Providers Name Role Phone Unavailable [...] you attend zoroastrian or Patient refused 2021 yazidism services? Do [...] 01/08/2020 3:15 Results for this EXAM PM KIOSK SALES REPRESENTATIVE procedure are i n the results section. documented in this encounter Results NOSE-Otorhinolaryngology Image Exam (01/08/2020 3:15 PM KIOSK SALES REPRESENTATIVE) Specimen (Source) Anatomical Collection Method Collection Time Re ceived Time Location / / Volume Laterality 01/08/2020 3:11 PM KIOSK SALES REPRESENTATIVE Narrative [facility] - 01/08/2020 3:29 PM KIOSK SALES REPRESENTATIVE This order has been created and auto-finalized [...]
--- OUTSIDE RECORDS SUMMARY | 2022-09-20 14:32 | XMS_ITS | Encounter Summary ---
:1965 Author Organization [facility] Address [address] [place] [address] Care Team Providers Name Role Phone Unavailable Primary Care Provider Unavailable Reason for Visit Outpatient (Routine) - Closed Specialty Diagnoses / Procedures Referred By Contact Refer red To Contact Otorhinolaryngology Darlin Olmedo M.D . [facility] [address] [place] [phone] Referral ID Status Reason Start Date Expiration Date Visits Requ ested Visits Authorized [id number] Closed 12/18/2019 12/17/2020 1 1 Encounter Details Date Type Department Care Team Description 01/08/2020 Office Visit Department of Darlin Olmedo Mucocele Nasa l Sinus Otorhinolaryngology jimmy Brumfield M.D. (Primary Dx) [address] [place] [phone] Social History Tobacco Use Types Packs/Day Years [...] you attend uatsdin or Patient refused 2021 gnosticism services? Do you belong to any clubs or No 05/17/2022 organizations such as uatsdin groups, CURRENTs, MOLOME or athletic groups, or school groups? How [...] She will continue saline irrigations and Flonase. RVISOR SHOP Associated attestation - Darlin Olmedo M.D. - 01/16/2020 5:45 PM SUPERVISOR SHOP I saw and evaluated the patient, participating [...]
--- OUTSIDE RECORDS SUMMARY | 2022-09-20 14:32 | XMS_ITS | Encounter Summary ---
:1965 Author Organization [facility] Address 200 [place] [address] Care Team Providers Name Role Phone Unavailable Primary Care Provider Unavailable Encounter Details Date Type Department Care Team Description 12/31/2020 Orders Only Department of Robert Diehl Stroke Cereb rovascular Accident Personal History (Primary Dx); Neurology in [place] Thrombosis Arterial (HCC) [place], [place] 200 [facility] 200 [place] [phone] Social History Tobacco Use Types Packs/Day Years [...]
--- OUTSIDE RECORDS SUMMARY | 2022-09-20 14:32 | XMS_ITS | Encounter Summary ---
:1965 Author Organization [facility] Address [address] [place] [address] Care Team Providers Name Role Phone Unavailable Primary Care Provider Unavailable Reason for Referral Outpatient (Routine) - Closed Specialty Diagnoses / Procedures Referred By Contact Refer red To Contact Neurology Robert Diehl M. D. [facility] 200 [place] [address] Referral ID Status Reason Start Date Expiration Date Visits Requ ested Visits Authorized [id number] Closed 09/15/2020 09/15/2021 1 1 Reason for Visit Appointment Request (Routine) - Closed Specialty Diagnoses / Procedures Referred By Contact Refer red To Contact Neurology Referral ID Status Reason Start Date Expiration Date Visits Requ ested Visits Authorized [id number] Closed 07/31/2020 07/31/2021 1 1 Encounter Details Date Type Department Care Team Description 09/15/2020 Virtual Visit Department of Robert Diehl [place] An eurysm Nonruptured (HCC) (Primary Dx); Neurology in M.D. Nicotine Dependence ; [place], [place] 200 [facility] Aneurysm Cerebral Unruptured (HCC) [address] [place] [phone] Social History Tobacco Use Types Packs/Day [...] you attend cheondoism or Patient refused 2021 worship services? Do [...] via the telephone and not in a sbbm-lg-[id number] manner. Ms. Mosquera is a 55-year-old woman [...] Priority Associated Diagnoses Order [facility] Neurology office Outpatient Referral Routine Expe cted: [...] nt right vertebral artery. RADHA, MCA, and international sales representative are patent. Neck MRA: Conventional three-vessel arch [...] nt right vertebral artery. RADHA, MCA, and international sales representative are patent. Neck MRA: Conventional three-vessel arch [...]
--- OUTSIDE RECORDS SUMMARY | 2022-09-20 14:32 | XMS_ITS | Encounter Summary ---
:1965 Author Organization [facility] Address [address] [place] [address] Care Team Providers Name Role Phone Unavailable Primary Care Provider Unavailable Reason for Visit Reason Comments shyam Encounter Details Date Type Department Care Team Description 07/29/2020 Clinical Communication Department of Robert Diehl [id number]/[id number] Neurology in .. [place], [place] [address] [place] [address] 200 [place] [phone] [phone] Social History Tobacco Use Types Packs/Day Years [...] for magnetic resonance angiogram be sent to [place]. José Miguel advise what the exact testing [...]
--- OUTSIDE RECORDS SUMMARY | 2022-09-20 14:32 | XMS_ITS | Encounter Summary ---
:1965 Author Organization [facility] Address [address] [place] [address] Care Team Providers Name Role Phone Unavailable Primary Care Provider Unavailable Reason for Visit Reason Comments Initiate warfarin anticoagulation. Encounter Details Date Type Department Care Team Description 01/01/2021 Clinical Communication Department of Renny Mahoney warfarin Neurology in L, R.N. anticoagulation. [place], [address] [place] [address] [place] [phone] [place], [place] [phone] (Work) [phone] Social History Tobacco Use Types Packs/Day Years [...] PM CST RADHA Thompson, calls in from [facility] with INR results = 3.9. Please call her back at [phone] ARCH AND DEVELOPMENT TECHNICIAN Telephone Encounter - Renny Mahoney R.N. - 01/05/2021 1:56 PM CST Mackenzie talked to her, she needs to go to the lab today. ARCH AND DEVELOPMENT TECHNICIAN Telephone Encounter - Allyssa Amaya - 01/05/2021 11:14 AM CST Patient calls in regarding this. She is wanting this set up now so a nurse can come into her home and do this. She I believed mentions that a nurse comes into her home now. She would like a call to discuss. ARCH AND DEVELOPMENT TECHNICIAN Telephone Encounter - Robert Diehl M.D. - 01/01/2021 4:46 PM CST Absolutely and thank you very much for coordinating this ARCH AND DEVELOPMENT TECHNICIAN Addendum Note - Renny Mahoney R.N. - 01/01/2021 1:03 PM RESEARCH AND DEVELOPMENT TECHNICIAN Addended by: RENNY MAHONEY on: 01/01/2021 01:03 PM Modules accepted: Orders ARCH AND DEVELOPMENT TECHNICIAN Telephone Encounter - Renny Mahoney R.N. - 01/01/2021 12:45 PM CST I spoke to the patient by telephone today to discuss reinitiating warfarin. The patient referred by Dr. Argenis Diehl ([phone]). The patient's target INR is 2.0-3.0. 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 The anticipated duration of warfarin is extermination supervisor. As per Dr. Diehl, the patient is to be instructed to discontinue the 325 mg aspirin once the target INR is reached. The patient shares that she is well aware of the risks/benefits and process of taking warfarin with regular INR monitoring. She declined the need for additional education by phone regarding anticoagulation. She would like to have her INRs drawn at [facility] with results [facility]. I spoke with her local primary care physician nurse about this as well. Once Dr. Diehl obtains imaging in about 3 months, we may consider transitioning her anticoagulation care to her local [facility]. The patient will take 5 mg warfarin nightly starting tonight 01/01/21, then have an INR drawn 01/05/21 at [facility] with results faxed to us. A prescription for warfarin 5 mg #30, take as directed, may refill X 1 was eprescribed to [facility]. The patient reported an adequate understanding of her plan of care and expressed agreement with thisplan. RECOMMENDED LEVEL OF CARE. The patient/caller is willing and able to follow the nurse's recommendation. RESPONSE TO ADVICE GIVEN. Patient/caller able to teach back. REFERENCES UTILIZED. Nursing clinical judgment utilized. Other interventions or information: Provider advice. TYPE OF PHONE CALL. Medical information, care coordination. . ARCH AND DEVELOPMENT TECHNICIAN Addendum Note - Renny Mahoney R.N. - 01/01/2021 9:43 AM RESEARCH AND DEVELOPMENT TECHNICIAN Addended by: RENNY MAHONEY on: 01/01/2021 09:43 AM Modules accepted: Orders ARCH AND DEVELOPMENT TECHNICIAN Telephone Encounter - Renny Mahoney R.N. - 01/01/2021 9:32 AM CST I have spoken with the pharmacist at [facility] in [place]. He notes that in 2018 when thepatient previously was treated with warfarin, she was taking 5 mg nightly for a period of time. Eventually some nights she was taking 7.5 mg nightly. The pharmacist reviewed potential medication interactions with the patient's current medication list. No serious interactions anticipated. As per Dr. Yeboah ([phone]), we will initiate 5 mg nightly. She will continue aspirin until therapeutic INR is reached. ARCH AND DEVELOPMENT TECHNICIAN Telephone Encounter - Renny Mahoney R.N. - 01/01/2021 8:47 AM CST The patient has been experiencing episodes of vertigo, gait instability, with a fall, she was seen in the ED of [facility] on 12/22/20. Head CT was performed and sent to [facility] for Dr. Diehl's review. He noted [...] the patient's primary care team at the [facility]. I have discussed this with the patient who reports an ad equate understanding and agreement with this plan. RECOMMENDED LEVEL OF CARE. The patient/caller is willing and able to follow the nurse's recommendation. RESPONSE TO ADVICE GIVEN. Patient/caller able to teach back. REFERENCES UTILIZED. Nursing clinical judgment utilized. Other interventions or information: Provider advice. TYPE OF PHONE CALL. Care coordination. ARCH AND DEVELOPMENT TECHNICIAN Telephone Encounter - Renny Mahoney R.N. - 01/01/2021 8:46 AM CST ----- Message from Robert Diehl M.D. sent at 12/31/2020 5:17 PM RESEARCH AND DEVELOPMENT TECHNICIAN ----- I called and discussed the results [...] by: Robert Diehl M.D. 12/31/20 5:16 PM RESEARCH AND DEVELOPMENT TECHNICIAN Stroke Cerebrovascular Accident Personal History Plan: CT Head without IV Contrast, CT Head without IV Contrast Ataxia Plan: CT Head Neck Angiogram with IV Contrast, CT Head Neck Angiogram with IV Contrast ARCH AND DEVELOPMENT TECHNICIAN documented in this encounter Plan of Treatment Scheduled Orders Name Type Priority Associated Diagnoses Order S chedule Prothrombin Time (PT) Lab Routine Gun Number Anticoagu lant 50 Occurrences starting Treatment 01/01/2021 unti l 01/01/2024 documented as of this encounter Visit Diagnoses Diagnosis Gun Number (Current) Anticoagulant Treatm ent - Primary documented in this encounter Additional Health Concerns Assessment Noted Time PHQ-9 Depression Total Score: 5 04/05/2019 8:00 AM CDT documented as of this encounter
--- OUTSIDE RECORDS SUMMARY | 2022-09-20 14:32 | XMS_ITS | Encounter Summary ---
:1965 Author Organization [facility] Address [address] [place] [address] Care Team Providers Name Role Phone Unavailable Primary Care Provider Unavailable Reason for Referral MRI/CAT/PET Scan (Routine) - Closed Specialty Diagnoses / Procedures Referred By Contact Refer red To Contact Radiology Diagnoses Ataxia Robert Diehl M.D. [facility] Procedures CT Head Neck Angiogram with IV Contrast [address] [place] [address] Referral ID Status Reason Start Date Expiration Date Visits Requ ested Visits Authorized [id number] Closed 12/30/2020 12/30/2021 1 1 [place] CUSTOMER SERVICE SPECIALIST MRI/CAT/PET Scan (Routine) - Closed Specialty Diagnoses / Procedures Referred By Contact Refer red To Contact Radiology Diagnoses Stroke Cerebrovascular Accident Personal History Robert Diehl M.D. [facility] Procedures CT Head without IV Contrast [address] [place] [address] Referral ID Status Reason Start Date Expiration Date Visits Requ ested Visits Authorized [id number] Closed 12/30/2020 12/30/2021 1 1 [place] CUSTOMER SERVICE SPECIALIST Reason for Visit MRI/CAT/PET Scan (Routine) - Closed Specialty Diagnoses / Procedures Referred By Contact Refer red To Contact Radiology Diagnoses Ataxia Robert Diehl M.D. [facility] Procedures CT Head Neck Angiogram with IV Contrast [address] [place] [address] Referral ID Status Reason Start Date Expiration Date Visits Requ ested Visits Authorized [id number] Closed 12/30/2020 12/30/2021 1 1 Encounter Details Date Type Department Care Team Description 12/31/2020 Hospital Encounter Department of Robert Diehl Stroke Cerebrovascular Accident Personal History; Radiology, Severiano Celaya M.D. [facility], in [address] [facility] [address] [address] [facility] [phone] [place], [place] (Work) [phone] Social History Tobacco Use Types Packs/Day Years [...] you attend episcopalian or Patient refused 2021 tenriism services? Do [...] Robert Diehl M.D. - 12/31/2020 5:17 PM RETAIL CUSTOMER SERVICE SPECIALIST I called and discussed the results with [...] by: Robert Diehl M.D. 12/31/20 5:16 PM RETAIL CUSTOMER SERVICE SPECIALIST Stroke Cerebrovascular Accident Personal History Plan: CT Head without IV Contrast, CT Head without IV Contrast Ataxia Plan: CT Head Neck Angiogram with IV Contrast, CT Head Neck Angiogram with IV Contrast [place] CUSTOMER SERVICE SPECIALIST documented in this encounter Plan of Treatment Not on filedocumented as of this encounter Procedures Procedure Name Priority Date/Time Associated Diagnosis Comme nts CT HEAD WITHOUT RAD - Routine 12/31/2020 3:34 Stroke Results for IV CONTRAST (most inpatients PM RETAIL CUSTOMER SERVICE SPECIALIST Cerebrovascular this pro cedure and all Accident Personal are in the outpatients) History results section. CT HEAD NECK RAD - Routine 12/31/2020 3:34 Ataxia Results for ANGIOGRAM WITH (most inpatients PM RETAIL CUSTOMER SERVICE SPECIALIST this proc edure IV CONTRAST and all are in the outpatients) results section. documented in this encounter Results CT Head Neck Angiogram with IV Contrast (12/31/2020 3:34 PM RETAIL CUSTOMER SERVICE SPECIALIST) Anatomical Region Laterality Modality Head and Neck, Neuroradiology RST LOS, N/A C omputed Tomography, Computed Neuroradiology ARZ LOS, Neuroradiology T omography FLA [facility] Specimen (Source) Anatomical Collection Method Collection Time Re ceived Time Location / / Volume Laterality 12/31/2020 3:49 PM RETAIL CUSTOMER SERVICE SPECIALIST Impressions 12/31/2020 4:54 PM RETAIL CUSTOMER SERVICE SPECIALIST 1. Evolving right cerebellar infarct with decreased [...] oid ICA aneurysms. Narrative 12/31/2020 4:54 PM RETAIL CUSTOMER SERVICE SPECIALIST EXAM: CT HEAD WITHOUT IV CONTRAST, CT [...] discussed with ordering physici Dr. Fazal abbasi ([id number]) at 4:54 PM on 12/31/2020. Procedure Note [...] discussed with ordering physici Dr. Fazal abbasi ([id number]) at 4:54 PM on 12/31/2020. IMPRESSION: 1. [...] Head without IV Contrast (12/31/2020 3:34 PM RETAIL CUSTOMER SERVICE SPECIALIST) Anatomical Region Laterality Modality Head, Neuroradiology RST LOS, N/A Computed T omography, Computed Neuroradiology ARZ LOS, Neuroradiology T omography FLA LOS Specimen (Source) Anatomical Collection Method Collection Time Re ceived Time Location / / Volume Laterality 12/31/2020 3:49 PM RETAIL CUSTOMER SERVICE SPECIALIST Impressions 12/31/2020 4:54 PM RETAIL CUSTOMER SERVICE SPECIALIST 1. Evolving right cerebellar infarct with decreased [...] oid ICA aneurysms. Narrative 12/31/2020 4:54 PM RETAIL CUSTOMER SERVICE SPECIALIST EXAM: CT HEAD WITHOUT IV CONTRAST, CT [...] Findings discussed with ordering physicDr. Fazal crandall ([id number]) at 4:54 PM on 12/31/2020. Procedure Note [...] Findings discussed with ordering physici anDr. Diehl ([id number]) at 4:54 PM on 12/31/2020. IMPRESSION: 1. [...] mg iodine/mL solution Given 12/31/2020 3:34 PM RETAIL CUSTOMER SERVICE SPECIALIST 1 00 mL 1-200 mL (OMNIPAQUE) 1-200 mL, intravenous, Once in imaging, contrast, Starting on Tue12/31/20 at 1411, For 1 dose, Imaging Protocol Orders, Dose per Radiant Medication Guidelines sodium chloride (PF) 0.9 % injection 1-1 00 mL Given 12/31/2020 3:34 PM RETAIL CUSTOMER SERVICE SPECIALIST 35 mL 1-100 mL, intravenous, Once, On Tue12/31/20 at 1415, For 1 dose, Imaging Protocol Orders documented in this encounter Additional Health Concerns Assessment Noted Time PHQ-9 Depression Total Score: 5 04/05/2019 8:00 AM CDT documented as of this encounter
--- OUTSIDE RECORDS SUMMARY | 2022-09-20 14:32 | XMS_ITS | Encounter Summary ---
:1965 Author Organization [facility] Address [address] [place] [address] Care Team Providers Name Role Phone Unavailable Primary Care Provider Unavailable Reason for Visit Reason Comments Follow-up [facility] Patient Encounter Details Date Type Department Care Team Description 12/29/2020 Clinical Communication [facility] Neurology jimmy Celaya M.D. Patient) [place], [facility] [place], [place] [address] [place] [address] [place], [place] [phone] (Work) [phone] Social History Tobacco Use Types Packs/Day Years [...] you attend worship or Patient refused 2021 roman catholic services? [...] her know PCP needs to prescribe meclizine. CTION CONTROL RN Telephone Encounter - Allyssa Amaya - 12/29/2020 [...] ambulance for; one of which lasted over hkh-[id number]-[id number]-half days. She is having headaches, etc. 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
--- OUTSIDE RECORDS SUMMARY | 2022-09-20 14:32 | XMS_ITS | Encounter Summary ---
:1965 Author Organization [facility] Address [address] [place] [address] Care Team Providers Name Role Phone Unavailable Primary Care Provider Unavailable Encounter Details Date Type Department Care Team Description 01/12/2021 Anticoagulation Visit Department of Neurology Zuly Alex, in [facility] R.N. [address] [facility] [address] [place] [phone] Social History Tobacco Use Types Packs/Day Years [...] you attend jew or Patient refused 2021 confucianist services? Do [...] Target INR 2.0-3.[address] Argenis Diehl ([id number]). The patient was scheduled for an INR recheck on 01/09/21, however did not have an INR draw until late that afternoon. The results did not become available until after clinic hours. Patient's INR on 01/09/21 was 2.[address]. Discussed with Dr. Argenis Diehl ([phone]) who advises that the patient follow a [...] OF PHONE CALL. Test results, symptom assessment. ATCHER SERVICE CHIEF documented in this encounter Plan of Treatment Not on filedocumented as of this encounter Procedures Procedure Name Priority Date/Time Associated Diagnosis Comme nts PROTHROMBIN TIME (PT), Routine 01/09/2021 Resul ts for this P procedure are i n the results section . documented in this encounter Results Prothrombin Time (PT) (01/09/2021) P athologist Signature EXT INR 2.40 OTHER (SPECIFY IN SHOE REPAIRER) Specimen (Source) Anatomical Location Collection Method / Collectio n Time Received Time / Laterality Volume Blood (Blood, 01/09/2021 Venous) Narrative This result has an attachment that is no t available. Historical Provider LAB BLOOD ADD-ON Performing Organization Address City/State/ZIP Code Phon e Number OTHER (SPECIFY IN SHOE REPAIRER) OTHER (SPECIFY IN SHOE REPAIRER) N/A documented in this encounter Visit Diagnoses Not on filedocumented in this encounter Additional Health Concerns Assessment Noted Time PHQ-9 Depression Total Score: 5 04/05/2019 8:00 AM CDT documented as of this encounter
--- OUTSIDE RECORDS SUMMARY | 2022-09-20 14:32 | XMS_ITS | Encounter Summary ---
:1965 Author Organization [facility] Address [address] [place] [address] Care Team Providers Name Role Phone Unavailable Primary Care Provider Unavailable Reason for Visit Reason Comments Michel Encounter Details Date Type Department Care Team Description 09/04/2020 Clinical Communication Department of Robert Diehl [facility] in .. [place], [place] [address] [place] [address] 200 [place] [address] [phone] Social History Tobacco Use Types Packs/Day Years [...]
--- OUTSIDE RECORDS SUMMARY | 2022-09-20 14:32 | XMS_ITS | Encounter Summary ---
:1965 Author Organization [facility] Address [address] [place] [address] Care Team Providers Name Role Phone Unavailable Primary Care Provider Unavailable Reason for Visit Reason Comments Michel Encounter Details Date Type Department Care Team Description 09/11/2020 Clinical Communication Department of Robert Diehl [facility] in .. [place], [place] [address] [place] [address] 200 [place] [address] [phone] Social History Tobacco Use Types Packs/Day Years [...] you attend druze or Patient refused 2021 adventism services? Do [...]
--- OUTSIDE RECORDS SUMMARY | 2022-09-20 14:32 | XMS_ITS | Encounter Summary ---
:1965 Author Organization [facility] Address [address] [place] [address] Care Team Providers Name Role Phone Unavailable Primary Care Provider Unavailable Encounter Details Date Type Department Care Team Description 01/07/2021 Anticoagulation Visit Department of Neurology Zuly Alex, in [facility] R.N. [address] [facility] [address] [place] [phone] Social History Tobacco Use Types Packs/Day Years [...] is 2.28. Discussed with Dr. Ashley Castrejon ([phone]) who advises that the patient take 5 [...] OF PHONE CALL. Test results, symptom assessment. CAL RESEARCH TECH documented in this encounter Plan of Treatment Not on filedocumented as of this encounter Procedures Procedure Name Priority Date/Time Associated Diagnosis Comme nts PROTHROMBIN TIME (PT), Routine 01/07/2021 Resul ts for this P procedure are i n the results section . documented in this encounter Results Prothrombin Time (PT) (01/07/2021) P athologist Signature EXT INR 2.28 OTHER (SPECIFY IN TIRE REPAIRMAN) Specimen (Source) Anatomical Location Collection Method / Collectio n Time Received Time / Laterality Volume Blood (Blood, 01/07/2021 Venous) Narrative This result has an attachment that is no t available. Historical Provider LAB BLOOD ADD-ON Performing Organization Address City/State/ZIP Code Phon e Number OTHER (SPECIFY IN TIRE REPAIRMAN) OTHER (SPECIFY IN TIRE REPAIRMAN) N/A documented in this encounter Visit Diagnoses Not on filedocumented in this encounter Additional Health Concerns Assessment Noted Time PHQ-9 Depression Total Score: 5 04/05/2019 8:00 AM CDT documented as of this encounter
--- OUTSIDE RECORDS SUMMARY | 2022-09-20 14:33 | XMS_ITS | Encounter Summary ---
:1965 Author Organization [facility] Address [address] [place] [address] Care Team Providers Name Role Phone Unavailable Primary Care Provider Unavailable Encounter Details Date Type Department Care Team Description 12/07/2019 Hospital Encounter RST ROMRadha MORAN OR Darlin Olmedo, [address] [facility] [facility] [place] [address] [address] [place] [address] [place] [address] Social History Tobacco Use Types [...] you attend gnosticist or Patient refused 2021 scientology services? Do [...] Comments Blood Pressure 114/72 12/07/2019 3:30 PM BANK MESSENGER Pulse 75 12/07/2019 4:25 PM BANK MESSENGER Temperature 36.5 ??C (97.7 ??F) 12/07/2019 2:32 PM BANK MESSENGER Respiratory Rate 15 12/07/2019 4:25 PM BANK MESSENGER Oxygen Saturation 94% 12/07/2019 4:25 PM BANK MESSENGER Inhaled Oxygen Concentration - - Weight - - Height - - Body Mass Index - - documented in this encounter Discharge Instructions Discharge InstructionseJy Santana M.D. - 12/07/2019 2:00 PM CST [...] saline sinus rinse kit (suchas NerhodaMed or Co[employer]ield). - Follow the directions on the bottle [...] of discharge, please contact our office at [phone] to inquire. If you are to follow [...] please call the [facility] Supplemental Nurse at and ask to speak to the ENT resident linen room houseperson. MESSENGER AttachmentsThe following attachments cannot be sent through Care Everywhere.Your Scopolamine Patch (Irish)documented in this encounter Medications at Time of [...] Extradural computer navigation was registered according to transport analyst's guidelines and confirmed to be accurate [...] 5 mL Implants None Darlin Olmedo M.D. MESSENGER Brief Op Note - Jey Santana M.D. [...] Loss None Implants None Jey Santana M.D. 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 Case Notes CHIEF CLERK 10:37 documented in this encounter Visit Diagnoses Not on filedocumented in this encounter Administered Medications Inactive Administered Medications - up to 3 most recent administrations Medication Order MAR Action Action Date Dose Rate Site acetaminophen injection 1,000 New Bag 12/07/2019 2:38 PM 1,000 mg 400 mL/hr mg (OFIRMEV) BANK MESSENGER 1,000 mg, intravenous, at 400 mL/hr, Administer [...] 1,000 mg (TYLENOL) Given 12/07/2019 12:06 PM BANK MESSENGER 1,000 mg 1,000 mg, oral, Once, On Tue12/07/19 at 1200, For 1 dose, Pre-Op aprepitant capsule 40 mg (EMEND) Given 12/07/2019 12:06 PM BANK MESSENGER 40 mg 40 mg, oral, Once as needed, prevent ponv, Starting on Tue12/07/19 at 1145, For 1 dose, Pre-Op caffeine tablet 200 mg Given 12/07/2019 12:06 PM BANK MESSENGER 200 mg 200 mg, oral, Once as needed, pre-op to prevent caffeine withdrawal headache or to enhance emergence from anesthesia/sedation, Starting on Tue12/07/19 at 1145, For 1 dose, Pre-Op, With sips droperidol injection 0.625 mg (INAPSINE) Given 12/07/2019 2:37 PM BANK MESSENGER 0.625 mg 0.625 mg, intravenous, Every 6 [...] 25 mcg (SUBLIMAZE) Given 12/07/2019 2:32 PM BANK MESSENGER 25 mcg 25 mcg, intravenous, Every 2 min PRN, For pain 4 or greater (maximum 100 mcg). If max dose of Fentanyl is reached and if pain is greater than 4, discontinue Fentanyl: give Hydromorphone, Starting on Tue12/07/19 at 1145, Pre-Op ketamine injection 10 mg (KETALAR) Given 12/07/2019 2:37 PM BANK MESSENGER 10 mg 10 mg, intravenous, Once as needed, Pain sedation mismatch AND RASS score less than -1, Starting on Tue12/07/19 at 1430, For 1 dose, PACU (only) lactated ringers New Bag 12/07/2019 3:48 PM BANK MESSENGER 20 mL/hr 20 mL/hr 20 mL/hr, intravenous, Continuous, Starting on Tue12/07/19 at 1400, PACU & Post-Op Continued from OR 12/07/2019 2:25 PM BANK MESSENGER 20 mL/hr 20 mL/hr metoprolol tablet 12.5 [...] 2 mg (VERSED) Given 12/07/2019 12:28 PM BANK MESSENGER 2 mg 2 mg, intravenous, Once as needed, anxiety, sedation, Starting on Tue12/07/19 at 1145, For 1 dose, Pre-Op ondansetron ODT disintegrating tablet 4 mg Given 12/07/2019 12:0 7 PM BANK MESSENGER 4 mg (ZOFRAN-ODT) 4 mg, sublingual, Once, On Tue12/07/19 at 1200, For 1 dose, Pre-Op, When splitting ODT at bedside, handle with gloves and a pill splitter to prevent moisture contact. scopolamine base 1 mg Medication Applied 12/07/2019 12:11 PM 1 patch Behind Right over 3 days 1 patch BANK MESSENGER Ear (TRANSDERM SCOP) 1 patch, transdermal, Administer [...] Recently Administered Medications Times are shown in BANK MESSENGER. Scheduled Medication Order 12/05/2019 12/06/2019 12/07/2019 acetaminophen [...] (COMPLETED) 1251 (Given - Provider: Gini Garcia, BURNING MACHINE OPERATOR, COMMUNITY HEALTH ADVOCATE) 1,250 mg (rounded from 1,146 mg = [...] (CANCELED) 1310 (Given - Provider: Darlin K Hatillo, M.D. - Comment: Soaked on cottonoids and [...] 1211 (Medication Applied - Provider: Steph Gallo R.N.)9145 (Due: Medication Removed - Provider: Discharge Provider, [...]
--- OUTSIDE RECORDS SUMMARY | 2022-09-20 14:33 | XMS_ITS | Encounter Summary ---
:1965 Author Organization [facility] Address [address] [place] [address] Care Team Providers Name Role Phone Unavailable Primary Care Provider Unavailable Reason for Visit Reason Onset Date Comments MRI from [facility] 10/02/2019 Dr. Diehl Encounter Details Date Type Department Care Team Description 10/02/2019 Clinical Communication Department of Robert Diehl MR I from [place] [facility] in , M.D. [facility] (Dr. Bullock, 200 [facility] Fazal) [place], [place] [address] [place] [address] [place], [place] [phone] (Work) [phone] Social History Tobacco Use Types Packs/Day Years [...] with the radiology film room (Marlen) at [facility]. They have pushed the MRI and it should be here soon. [employer]OR REHABILITATION PROGRAM documented in this encounter Plan of Treatment Not on filedocumented as of this encounter Visit Diagnoses Not on filedocumented in this encounter Additional Health Concerns Assessment Noted Time PHQ-9 Depression Total Score: 5 04/05/2019 8:00 AM CDT documented as of this encounter
--- OUTSIDE RECORDS SUMMARY | 2022-09-20 14:33 | XMS_ITS | Encounter Summary ---
:1965 Author Organization [facility] Address [address] [place] [address] Care Team Providers Name Role Phone Unavailable Primary Care Provider Unavailable Reason for Visit Reason Onset Date Comments Patient wants letter and notes sent to physician in 10/03/[address] Robert Diehl [facility] Encounter Details Date Type Department Care Team Description 10/03/2019 Clinical Communication Department of Robert Diehl Neurology in [place], [place] letter and notes [address] sent to physician [place], [place] in [facility] ( [address] [place] [phone] Robert Diehl) [place], [place] [phone] (Work) [phone] Social History Tobacco Use Types Packs/Day Years [...] you attend sikhism or Patient refused 2021 yazidism services? Do [...] PM CST As per documentation in [facility] on 09/04, a letter has been sent to Dr. Blackwell with the patient's notes from her most recent visit. T SEWER documented in this encounter Plan of Treatment Not on filedocumented as of this encounter Visit Diagnoses Not on filedocumented in this encounter Additional Health Concerns Assessment Noted Time PHQ-9 Depression Total Score: 5 04/05/2019 8:00 AM CDT documented as of this encounter
--- OUTSIDE RECORDS SUMMARY | 2022-09-20 14:33 | XMS_ITS | Encounter Summary ---
:1965 Author Organization [facility] Address [address] [place] [address] Care Team Providers Name Role Phone Unavailable Primary Care Provider Unavailable Reason for Visit Outpatient (Routine) - Closed Specialty Diagnoses / Procedures Referred By Contact Refer red To Contact General Surgery Diagnoses Rhinosinusitis Chronic Jey Santana M.D. [facility] [address] [place] [phone] Referral ID Status Reason Start Date Expiration Date Visits Requ ested Visits Authorized [id number] Closed 11/08/2019 11/07/2020 1 1 Encounter Details Date Type Department Care Team Description 11/29/2019 Comprehensive Visit Preoperative Jey Santana M.D. [address] [place] [phone] Preanesthetic Medical Exam (Primary Dx); Evaluation Center in Lanre Carvajal M.D. [address] [place] [address] [phone] Rhinosinusitis Chronic [place], [place] [address] [place] [address] [phone] Social History Tobacco Use Types Packs/Day Years [...] you attend hindu or Patient refused 2021 tenriism services? Do you belong to any clubs or No 05/17/2022 organizations such as hindu groups, unions, fraFunctional Neuromodulation or athletic groups, or school groups? How [...] Comments Blood Pressure 108/74 11/29/2019 12:45 PM GEL COAT SPRAYER Pulse 104 11/29/2019 12:45 PM GEL COAT SPRAYER Temperature 36.5 ??C (97.7 ??F) 11/29/2019 12:45 PM GEL COAT SPRAYER Respiratory Rate - - Oxygen Saturation 96% 11/29/2019 12:45 PM GEL COAT SPRAYER Inhaled Oxygen Concentration - - Weight 76.4 kg (168 lb 6.9 oz) 11/29/2019 12:45 PM GEL COAT SPRAYER Height 151.7 cm (4' 11.72) 11/29/2019 12:45 PM GEL COAT SPRAYER Body Mass Index 33.2 11/29/2019 12:45 PM GEL COAT SPRAYER documented in this encounter H&P Notes Lanre Carvajal M.D. - 11/29/2019 12:45 PM CST Preoperative Medical Evaluation Patient Name: Angie Mosquera Age: 54 y.o. Date of : 1965 Patient [address]: [address] [place] [phone] Primary Care Provider: No primary care provider [...] #11 Patent Foramen Ovale (HCC) Noted on [id number]/ ECHO otherwise normal. I will not pursue anything further COAT SPRAYER documented in this encounter Plan of Treatment Not on filedocumented as of this encounter Results Creatinine with Estimated GFR - for Lab Draw (11/29/2019 11:30 AM GEL COAT SPRAYER) P athologist Signature Creatinine 0.98 0.59 - 11/29/2019 DTL 1.04 mg/dL 1:05 PM GEL COAT SPRAYER eGFR-Non 65 >=60 11/29/2019 DTL Black/ mL/min/BSA 1:05 PM GEL COAT SPRAYER Andorran Comment: ----ADDITIONAL INFORMATION---- Estimated GFR calculated using the 2009 CKD_EPI creatinine equation. eGFR-Black/ 75 >=60 mL/min/BSA 2019 1:05 PM GEL COAT SPRAYER DTL Comment: ----ADDITIONAL INFORMATION---- Estimated GFR calculated using the 2009 CKD_EPI creatinine equation. Specimen Anatomical Collection Method Collection Time Receive d Time (Source) Location / / Volume Laterality Blood (Blood, 11/29/2019 11:30 11/29/2019 Venous) AM GEL COAT SPRAYER 11:50 AM GEL COAT SPRAYER Miranda Collado APRN, C.N.P., M.S.N. LAB BLOOD ADD-ON Performing Organization Address City/State/ZIP Code Phon e Number [facility] - [address] [place], [place] [address] [place] [address] Laboratories-[facility] [address] documented in this encounter Visit Diagnoses Diagnosis Preanesthetic Medical Exam - Primary Rhinosinusitis Chronic documented in this encounter Additional Health Concerns Assessment Noted Time PHQ-9 Depression Total Score: 5 04/05/2019 8:00 AM CDT documented as of this encounter
--- OUTSIDE RECORDS SUMMARY | 2022-09-20 14:33 | XMS_ITS | Encounter Summary ---
:1965 Author Organization [facility] Address [address] [place] [address] Care Team Providers Name Role Phone Unavailable Primary Care Provider Unavailable Encounter Details Date Type Department Care Team Description 11/29/2019 Hospital Encounter Department of Jey Santana, Rhinosi nusitis Chronic; Laboratory Medicine M.D. Preanesthetic Medical Exam and Pathology, [address] [place] [address] in [place] [phone] [place] [phone] [place] [address] (Work) [place], [place] [phone] (Fax) [phone] Social History Tobacco Use Types Packs/Day Years [...] you attend anabaptist or Patient refused 2021 amish services? Do [...] R esults for this DIFFERENTIAL, B AM ALTERNATIVE EDUCATION TEACHER procedure ar e in the results section. CREATININE WITH Routine 11/29/2019 11:30 Preanesthetic Medical Results for this EGFR, S/P AM ALTERNATIVE EDUCATION TEACHER Exam procedure are i n the results section. documented in this encounter Results Creatinine with Estimated GFR - for Lab Draw (11/29/2019 11:30 AM ALTERNATIVE EDUCATION TEACHER) P athologist Signature Creatinine 0.98 0.59 - 11/29/2019 DTL 1.04 mg/dL 1:05 PM ALTERNATIVE EDUCATION TEACHER eGFR-Non 65 >=60 11/29/2019 DTL Black/ mL/min/BSA 1:05 PM ALTERNATIVE EDUCATION TEACHER Welsh Comment: ----ADDITIONAL INFORMATION---- Estimated GFR calculated using the 2009 CKD_EPI creatinine equation. eGFR-Black/ 75 >=60 mL/min/BSA 2019 1:05 PM ALTERNATIVE EDUCATION TEACHER DTL Comment: ----ADDITIONAL INFORMATION---- Estimated GFR calculated using the 2009 CKD_EPI creatinine equation. Specimen Anatomical Collection Method Collection Time Receive d Time (Source) Location / / Volume Laterality Blood (Blood, 11/29/2019 11:30 11/29/2019 Venous) AM ALTERNATIVE EDUCATION TEACHER 11:50 AM ALTERNATIVE EDUCATION TEACHER Miradna Collado APRN C.N.P., M.S.N. LAB BLOOD ADD-ON Performing Organization Address City/State/ZIP Code Phon e Number [facility] - [address] [place] [phone] [facility] [place] [address] Laboratories-[facility] 200 [facility] (ABNORMAL) CBC without Differential (11/29/2019 11:30 AM ALTERNATIVE EDUCATION TEACHER) Patholo gist Method Time Signature Hemoglobin 13.3 11.6 - 11/29/2019 DTL 15.0 g/dL 12:09 PM ALTERNATIVE EDUCATION TEACHER Hematocrit 40.6 35.5 - 11/29/2019 DTL 44.9 % 12:09 PM ALTERNATIVE EDUCATION TEACHER Erythrocytes 4.08 3.92 - 11/29/2019 DTL 5.13 12:09 PM ALTERNATIVE EDUCATION TEACHER x10(12)/L MCV 99.5 (H) 78.2 - 11/29/2019 DTL 97.9 fL 12:09 PM ALTERNATIVE EDUCATION TEACHER RBC Distrib Width 13.3 12.2 - 11/29/2019 DTL 16.1 % 12:09 PM ALTERNATIVE EDUCATION TEACHER Platelet Count 234 157 - 371 11/29/2019 DTL x10(9)/L 12:09 PM ALTERNATIVE EDUCATION TEACHER Leukocytes 5.8 3.4 - 9.6 11/29/2019 DTL x10(9)/L 12:09 PM ALTERNATIVE EDUCATION TEACHER Specimen Anatomical Collection Method Collection Time Receive d Time (Source) Location / / Volume Laterality Blood (Blood, 11/29/2019 11:30 11/29/2019 Venous) AM ALTERNATIVE EDUCATION TEACHER 11:50 AM ALTERNATIVE EDUCATION TEACHER Jey Santana M.D. LAB BLOOD ADD-ON Performing Organization Address City/State/ZIP Code Phon e Number [facility] - [address] [place], [place] [address] [facility] [place] [address] Laboratories-[facility] [address] [facility] documented in this encounter Visit Diagnoses Diagnosis Rhinosinusitis Chronic Preanesthetic Medical Exam documented in this encounter Additional Health Concerns Assessment Noted Time PHQ-9 Depression Total Score: 5 04/05/2019 8:00 AM CDT documented as of this encounter
--- OUTSIDE RECORDS SUMMARY | 2022-09-20 14:33 | XMS_ITS | Encounter Summary ---
:1965 Author Organization [facility] Address [address] [place] [address] Care Team Providers Name Role Phone Unavailable Primary Care Provider Unavailable Encounter Details Date Type Department Care Team Description 12/07/2019 Surgery RST ROMRadha MORAN OR Darlin Olmedo, SINUSOTOMY ENDOSCOPY [address] [place] [phone] [place] [address] [place] [phone] Social History Tobacco Use Types Packs/Day Years [...] you attend cheondoism or Patient refused 2021 yazidism services? Do [...] sinus rinse kit (jose ramon Dalal or [place]). - Follow the directions on the bottle [...] our clinic or with another department at [facility], an appointment willbe made for you. If you have not received specific details (date, time, location) within 2 weeks of discharge, please contact our office at [phone] to inquire. If you are to follow up somewhere other than [facility], please schedule this appointment (in the timeframe recommended by your surgeon)at your earliest convenience. CONTACT INFORMATION: If you need to reach the Department of ENT at the [facility] regarding any questions during normal business hours, please call . If you are calling after normal business hours and have a concern that needs to be addressed urgently, please call the [facility] Bullet Slug Casting Machine Operator at and ask to speak to the ENT resident aggregate conveyor operator. HOUSE WHEELER AttachmentsThe following attachments cannot be sent through Care Everywhere.Your Scopolamine Patch (Kyrgyz)documented in this encounter Medications at Time of [...] Extradural computer navigation was registered according to reo asset manager's guidelines and confirmed to be accurate within [...] mL Implants None Darlin Olmedo M.D. HOUSE WHEELER Brief Op Note - Jey Santana M.D. [...] None Implants None Jey Santana M.D. 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 Case Notes BOOKKEEPER RECEPTIONIST 10:37 documented in this encounter Visit Diagnoses Diagnosis Rhinosinusitis Chronic Mucocele Nasal Sinus documented in this encounter Administered Medications Inactive Administered Medications - up to 3 most recent administrations Medication Order MAR Action Action Date Dose Rate Site acetaminophen injection 1,000 New Bag 12/07/2019 2:38 PM 1,000 mg 400 mL/hr mg (OFIRMEV) DRY HOUSE WHEELER 1,000 mg, intravenous, at 400 mL/hr, Administer [...] 1,000 mg (TYLENOL) Given 12/07/2019 12:06 PM DRY HOUSE WHEELER 1,000 mg 1,000 mg, oral, Once, On Tue12/07/19 at 1200, For 1 dose, Pre-Op aprepitant capsule 40 mg (EMEND) Given 12/07/2019 12:06 PM DRY HOUSE WHEELER 40 mg 40 mg, oral, Once as needed, prevent ponv, Starting on Tue12/07/19 at 1145, For 1 dose, Pre-Op caffeine tablet 200 mg Given 12/07/2019 12:06 PM DRY HOUSE WHEELER 200 mg 200 mg, oral, Once as needed, pre-op to prevent caffeine withdrawal headache or to enhance emergence from anesthesia/sedation, Starting on Tue12/07/19 at 1145, For 1 dose, Pre-Op, With sips cocaine 4 % external solution Given 12/07/2019 1:10 PM DRY HOUSE WHEELER 4 mL Other As needed, Starting on Tue12/07/19 at 1310, Intra-Op droperidol injection 0.625 mg (INAPSINE) Given 12/07/2019 2:37 PM DRY HOUSE WHEELER 0.625 mg 0.625 mg, intravenous, Every 6 [...] 25 mcg (SUBLIMAZE) Given 12/07/2019 2:32 PM DRY HOUSE WHEELER 25 mcg 25 mcg, intravenous, Every 2 min PRN, For pain 4 or greater (maximum 100 mcg). If max dose of Fentanyl is reached and if pain is greater than 4, discontinue Fentanyl: give Hydromorphone, Starting on Tue12/07/19 at 1145, Pre-Op ketamine injection 10 mg (KETALAR) Given 12/07/2019 2:37 PM DRY HOUSE WHEELER 10 mg 10 mg, intravenous, Once as needed, Pain sedation mismatch AND RASS score less than -1, Starting on Tue12/07/19 at 1430, For 1 dose, PACU (only) lactated ringers New Bag 12/07/2019 3:48 PM DRY HOUSE WHEELER 20 mL/hr 20 mL/hr 20 mL/hr, intravenous, Continuous, Starting on Tue12/07/19 at 1400, PACU & Post-Op Continued from OR 12/07/2019 2:25 PM DRY HOUSE WHEELER 20 mL/hr 20 mL/hr lidocaine-EPINEPHrine 1 %-1:100,000 Given 12/07/2019 1:45 PM DRY HOUSE WHEELER 2 mL Other injection (XYLOCAINE W/EPI) As needed, Starting on Tue12/07/19 at 1320, Intra-Op Given 12/07/2019 1:20 PM DRY HOUSE WHEELER 1.5 mL Other metoprolol tablet 12.5 mg [...] 2 mg (VERSED) Given 12/07/2019 12:28 PM DRY HOUSE WHEELER 2 mg 2 mg, intravenous, Once as needed, anxiety, sedation, Starting on Tue12/07/19 at 1145, For 1 dose, Pre-Op ondansetron ODT disintegrating tablet 4 mg Given 12/07/2019 12:0 7 PM DRY HOUSE WHEELER 4 mg (ZOFRAN-ODT) 4 mg, sublingual, Once, On Tue12/07/19 at 1200, For 1 dose, Pre-Op, When splitting ODT at bedside, handle with gloves and a pill splitter to prevent moisture contact. oxymetazoline 0.05 % nasal spray Given 12/07/2019 1:42 PM DRY HOUSE WHEELER 1 application (AFRIN) As needed, Starting on Tue12/07/19 at 1342, Intra-Op scopolamine base 1 mg Medication Applied 12/07/2019 12:11 PM 1 patch Behind Right over 3 days 1 patch DRY HOUSE WHEELER Ear (TRANSDERM SCOP) 1 patch, transdermal, Administer [...] Recently Administered Medications Times are shown in DRY HOUSE WHEELER. Scheduled Medication Order 12/05/2019 12/06/2019 12/07/2019 acetaminophen [...] (COMPLETED) 1251 (Given - Provider: Gini Garcia, DRAMATIC ART TEACHER, COMMUNITY AFFAIRS MANAGER) 1,250 mg (rounded from 1,146 mg [...]
--- OUTSIDE RECORDS SUMMARY | 2022-09-20 14:33 | XMS_ITS | Encounter Summary ---
:1965 Author Organization [facility] Address [address] [place] [address] Care Team Providers Name Role Phone Unavailable Primary Care Provider Unavailable Reason for Visit Outpatient (Routine) - Closed Specialty Diagnoses / Procedures Referred By Contact Refer red To Contact Otorhinolaryngology Jey Santana M.D. [facility] [address] [place] [phone] Referral ID Status Reason Start Date Expiration Date Visits Requ ested Visits Authorized [id number] Closed 11/08/2019 11/07/2020 1 1 Encounter Details Date Type Department Care Team Description 11/29/2019 Office Visit Department of Darlin Olmedo Mucocele Nasa l Sinus Otorhinolaryngology jimmy Brumfield M.D. (Primary Dx) [place], [place] [address] [place] [address] [place] [address] [phone] Social History Tobacco Use Types [...] you attend restorationist or Patient refused 2021 mandaeism services? Do [...] Previous sinus surgery: sinus surgery X2 in [place] and X2 at [place] per patient; mucocele notedby left eye on [...] Crusting Mild = 1 Mild = 1 Orgas-Nate Endoscopy Score = 2 ASSESSMENT / PLAN [...] if this occurs we will identify another franchise field consultant surgeon to supervise other team members to safely and seamlessly complete the procedure. Signed consent was obtained today. Patient was seen and examined today in conjunction with Dr. Darlin Olmedo ([phone]). SUPPLY Associated attestation - Darlin Olmedo M.D. - 11/30/2019 10:43 AM LINE SUPPLY I was the supervising physician in the delivery of the service. I saw the patient with Krista Casey APRN, [facility], MSN and agree with her history, Assessment [...]
--- OUTSIDE RECORDS SUMMARY | 2022-09-20 14:33 | XMS_ITS | Encounter Summary ---
:1965 Author Organization [facility] Address [address] [place] [address] Care Team Providers Name Role Phone Unavailable Primary Care Provider Unavailable Reason for Visit Outpatient (Routine) - Closed Specialty Diagnoses / Procedures Referred By Contact Refer red To Contact Neurology Robert Diehl M. D. [facility] [address] [place] [phone] Referral ID Status Reason Start Date Expiration Date Visits Requ ested Visits Authorized [id number] Closed 06/28/2019 06/27/2020 1 1 Encounter Details Date Type Department Care Team Description 10/02/2019 Office Visit Department of Robert Diehl, Stroke (H CC) (Primary Dx); Neurology in [place] Thrombosis Arterial (HCC) [place], [place] [address] [place] [address] [place] [phone] Social History Tobacco Use Types Packs/Day Years [...] you attend buddhism or Patient refused 2021 druze services? Do you belong to any clubs or No 05/17/2022 organizations such as buddhism groups, unions, fraArboribus or athletic groups, or school groups? How [...] of a magnetic resonance angiogram completed at [facility]. Unfortunately we do not have the [...] 1. Stroke (HCC) 2. Thrombosis Arterial (HCC) H USHER documented in this encounter Plan of Treatment Not on filedocumented as of this encounter Visit Diagnoses Diagnosis Stroke (HCC) - Primary Thrombosis Arterial (HCC) documented in this encounter Additional Health Concerns Assessment Noted Time PHQ-9 Depression Total Score: 5 04/05/2019 8:00 AM CDT documented as of this encounter
--- OUTSIDE RECORDS SUMMARY | 2022-09-20 14:33 | XMS_ITS | Encounter Summary ---
:1965 Author Organization [facility] Address [address] [place] [address] Care Team Providers Name Role Phone Unavailable Primary Care Provider Unavailable Encounter Details Date Type Department Care Team Description 12/06/2019 Clinical Communication Department of Robert Diehl, Neurology in .. [place], [place] 200 [facility] 200 [place] [phone] Social History Tobacco Use Types Packs/Day Years [...] you attend restorationism or Patient refused 2021 mormon services? Do [...] during her next visit. Janis Preston R.N. CONSERVATION TECHNICIAN Telephone Encounter - Janis Preston R.N. - 12/06/2019 1:35 PM CST ----- Message from Robert Diehl M.D. sent at 12/03/2019 10:17 AM SOIL CONSERVATION TECHNICIAN ----- Regarding: FW: Overnight oximetry Good morning Would you be able to reach out and let this patient know the oximetry was unsuccessful and would need to be repeated and ask if they would like to do this? Thank you! Electronically signed by: Robert Diehl M.D. 12/03/19 10:18 AM SOIL CONSERVATION TECHNICIAN ----- Message ----- From: Carolynn Stokes Sent: 11/29/2019 2:39 PM SOIL CONSERVATION TECHNICIAN To: Robert Diehl M.D. Subject: Overnight oximetry Your patients overnight oximetry test did not have recorded data of sufficient duration for an interpretation to be completed and was returned four months after appointment. Therefore an overnight oximetry report will not be generated to [facility]. Please contact your clinical assistant construction superintendent to reschedule an overnight oximetry test if you wish the patient to repeat an overnight oximetry test. CONSERVATION TECHNICIAN documented in this encounter Plan of [...] Address City/State/ZIP Code Phon e Number [place] [facility] documented in this encounter Visit Diagnoses Diagnosis Fatigue - Primary Fatigue documented in this encounter Additional Health Concerns Assessment Noted Time PHQ-9 Depression Total Score: 5 04/05/2019 8:00 AM CDT documented as of this encounter
--- OUTSIDE RECORDS SUMMARY | 2022-09-20 14:33 | XMS_ITS | Encounter Summary ---
:1965 Author Organization [facility] Address [address] [place] [address] Care Team Providers Name Role Phone Unavailable [...] you attend samaritan or Patient refused 2021 lutheran services? Do [...] 11/29/2019 3:10 Results for this EXAM PM CONTROLLER OPERATIONS AND HR MANAGER procedure are i n the results section. documented in this encounter Results NOSE-Otorhinolaryngology Image Exam (11/29/2019 3:10 PM CONTROLLER OPERATIONS AND HR MANAGER) Specimen (Source) Anatomical Collection Method Collection Time Re ceived Time Location / / Volume Laterality 11/29/2019 3:08 PM CONTROLLER OPERATIONS AND HR MANAGER Narrative [facility] - 11/29/2019 3:58 PM CONTROLLER OPERATIONS AND HR MANAGER This order has been created and [...]
--- OUTSIDE RECORDS SUMMARY | 2022-09-20 14:33 | XMS_ITS | Encounter Summary ---
:1965 Author Organization [facility] Address [address] [place] [address] Care Team Providers Name Role Phone Unavailable Primary Care Provider Unavailable Reason for Referral Outpatient (Routine) - Closed Specialty Diagnoses / Procedures Referred By Contact Refer red To Contact General Surgery Diagnoses Rhinosinusitis Chronic John Gomez M.D. [address] [phone] Referral ID Status Reason Start Date Expiration Date Visits Requ ested Visits Authorized [id number] Closed 11/08/2019 11/07/2020 1 1 utpatient (Routine) - Closed Specialty Diagnoses / Procedures Referred By Contact Refer red To Contact Otorhinolaryngology John Gomez M.D. [address] [phone] Referral ID Status Reason Start Date Expiration Date Visits Requ ested Visits Authorized [id number] Closed 11/08/2019 11/07/2020 1 1 Scheduling Instructions EKO listing visit and NESHA 11/29/2019 CTOR ADVANCED Reason for Visit Reason Onset Date Comments reschedule surgery 11/07/2019 Patient was a no sydni w for surgery with Dr. Olmedo on 11/05/19. Encounter Details Date Type Department Care Team Description 11/07/2019 Clinical Department of shawna Olmedo Communication Otorhinolaryngology in [place] surg silva (Patient [place].Juice. was a no show for [address] [place]. [place], [place] [phone] SHAHANA Schley on [phone] [place], 11/05/19.) [place] [phone] Social History Tobacco Use Types Packs/Day Years [...] you attend jainism or Patient refused 2021 pentecostal services? Do [...] White R.N. - 11/09/2019 10:02 AM DIRECTOR ADVANCED Patient called to let her know of the preoperative appointments and listing appointment with Dr. Dariln Olmedo. She was also informed that she does not have to stop the aspirin 81 mg for surgery. She verbalized understanding regarding the use of aspirin and was appreciative of the call. CTOR ADVANCED Telephone Encounter - John Gomez M.D. - 11/08/2019 5:00 PM CST Kosta Wu, I placed the NESHA, listing visit, and created the listing. She can stay on her 81 ASA. Thank you. CTOR ADVANCED Addendum Note - John Gomez M.D. - 11/08/2019 4:59 PM DIRECTOR ADVANCED Addended by: JOHN GOMEZ on: 11/08/2019 04:59 PM Modules accepted: Orders CTOR ADVANCED Telephone Encounter - Tanvi White R.N. - 11/08/2019 10:59 AM DIRECTOR ADVANCED SUBJECTIVE CHIEF COMPLAINT / REASON FOR CALL [...] the surgical date. She will require a pile driver engineer and that plan will work better for her. Disposition/Recommendation: Patient is aware that she will need to call in the night before surgeryfor a report time to [facility]. Information/Education: patient/caller able to teach back Caller agreeable to plan of care: yes The following references were used: nursing clinical judgement CTOR ADVANCED Telephone Encounter - Darlin Olmedo M.D. - 11/08/2019 10:16 AM CST Any of those days are fine. I should see her for a listing visit and NESHA. thanks CTOR ADVANCED Telephone Encounter - Tanvi White R.N. - 11/07/2019 1:34 PM DIRECTOR ADVANCED SUBJECTIVE CHIEF COMPLAINT / REASON FOR CALL [...] references were used: nursing clinical judgement CTOR ADVANCED documented in this encounter Plan of Treatment Scheduled Referrals Name Type Priority Associated Diagnoses Order S chedule Otorhinolaryngology office Outpatient Routine E xpected: visit (clinic) Referral 11/29/2019, Expires: 11/08/2022 Preoperative Evaluation Outpatient Routine Rhinosinusitis Ex pected: NESHA consult (clinic) Referral Chronic 020 (Approximate), Expires: 11/08/2022 documented as of this encounter Results (ABNORMAL) CBC without Differential (11/29/2019 11:30 AM DIRECTOR ADVANCED) [facility] gist Method Time Signature Hemoglobin 13.3 11.6 - 11/29/2019 DTL 15.0 g/dL 12:09 PM DIRECTOR ADVANCED Hematocrit 40.6 35.5 - 11/29/2019 DTL 44.9 % 12:09 PM DIRECTOR ADVANCED Erythrocytes 4.08 3.92 - 11/29/2019 DTL 5.13 12:09 PM DIRECTOR ADVANCED x10(12)/L MCV 99.5 (H) 78.2 - 11/29/2019 DTL 97.9 fL 12:09 PM DIRECTOR ADVANCED RBC Distrib Width 13.3 12.2 - 11/29/2019 DTL 16.1 % 12:09 PM DIRECTOR ADVANCED Platelet Count 234 157 - 371 11/29/2019 DTL x10(9)/L 12:09 PM DIRECTOR ADVANCED Leukocytes 5.8 3.4 - 9.6 11/29/2019 DTL x10(9)/L 12:09 PM DIRECTOR ADVANCED Specimen Anatomical Collection Method Collection Time Receive d Time (Source) Location / / Volume Laterality Blood (Blood, 11/29/2019 11:30 11/29/2019 Venous) AM DIRECTOR ADVANCED 11:50 AM DIRECTOR ADVANCED John Gomez M.D. LAB BLOOD ADD-ON Performing Organization Address City/State/ZIP Code Phon e Number [facility] - [address] [place], [place] [address] [facility] [place] [address] [facility] [address] documented in this encounter Visit Diagnoses Diagnosis Rhinosinusitis Chronic - Primary documented in this encounter Additional Health Concerns Assessment Noted Time PHQ-9 Depression Total Score: 5 04/05/2019 8:00 AM CDT documented as of this encounter
--- OUTSIDE RECORDS SUMMARY | 2022-09-20 14:33 | XMS_ITS | Encounter Summary ---
:1965 Author Organization [facility] Address [address] [place] [address] Care Team Providers Name Role Phone Unavailable Primary Care Provider Unavailable Encounter Details Date Type Department Care Team Description 10/09/2019 Orders Only Department of Otorhinolaryngology Alana Engel, in [facility] L[facility] 200 [facility] 200 [place] [phone] [place], [place] [phone] Social History Tobacco Use Types Packs/Day Years [...]
--- OUTSIDE RECORDS SUMMARY | 2022-09-20 14:33 | XMS_ITS | Encounter Summary ---
:1965 Author Organization [facility] [place] [facility] Address [address] [place] [address] Care Team Providers Name Role Phone Unavailable Primary Care Provider Unavailable Encounter Details Date Type Department Care Team Description 10/02/2019 Ancillary Procedure Department of Robert Diehl Arterial Radiology jimmy Celaya M.D. ([facility]) [place], [place] 200 [facility] 200 [place] [phone] Social History Tobacco Use Types Packs/Day Years [...] you attend spiritism or Patient refused 2021 congregational services? Do [...] Robert Diehl M.D. - 10/02/2019 3:20 PM SUBSTANCE ABUSE COUNSELOR [employer]: Would you please give the patient a [...] artery finding and the left paraclinoid aneurysm. TANCE ABUSE COUNSELOR documented in this encounter Plan of Treatment Not on filedocumented as of this encounter Procedures Procedure Name Priority Date/Time Associated Comments Diagnosis INTERPRETATION OF RAD - Routine 10/02/2019 1:01 Thrombosis Result s for OUTSIDE MR NECK (most inpatients PM SUBSTANCE ABUSE COUNSELOR Arterial (HCC) this p rocedure and all are in the outpatients) results section. documented in this encounter Results Interpretation of Outside MR Neck (10/02/2019 1:01 PM SUBSTANCE ABUSE COUNSELOR) Anatomical Region Laterality Modality Neuroradiology RST LOS, Neuroradiology ARZ LOS, N/A Magnetic Resonance Neuroradiology FLA LOS, Neck Specimen (Source) Anatomical Collection Method Collection Time Re ceived Time Location / / Volume Laterality 10/02/2019 1:03 PM SUBSTANCE ABUSE COUNSELOR Impressions 10/02/2019 1:18 PM SUBSTANCE ABUSE COUNSELOR Similar appearance of the distal right vertebral artery irregularity and mild narrowing at C1, r elated to the nonocclusive luminal thrombus, as seen on the prior CTA exams . MRA neck otherwise negative and unchanged. Narrative 10/02/2019 1:18 PM SUBSTANCE ABUSE COUNSELOR EXAM: ??INTERPRETATION OF OUTSIDE MR NECK COMPARISON: [...]
--- OUTSIDE RECORDS SUMMARY | 2022-09-20 14:33 | XMS_ITS | Encounter Summary ---
:1965 Author Organization [facility] Address [address] [place] [address] Care Team Providers Name Role Phone Unavailable Primary Care Provider Unavailable Encounter Details Date Type Department Care Team Description 10/02/2019 Orders Only Department of Robert Diehl Thrombosi s Arterial Neurology in [place] ([facility]) (Primary Dx) [place], [place] 200 [facility] 200 [place] [phone] Social History Tobacco Use Types Packs/Day Years [...] you attend denominational or Patient refused 2021 islam services? Do [...] of Outside MR Neck (10/02/2019 1:01 PM SUPERVISOR METAL HANGING) Anatomical Region Laterality Modality Neuroradiology RST LOS, Neuroradiology ARZ LOS, N/A Magnetic Resonance Neuroradiology FLA LOS, Neck Specimen (Source) Anatomical Collection Method Collection Time Re ceived Time Location / / Volume Laterality 10/02/2019 1:03 PM SUPERVISOR METAL HANGING Impressions 10/02/2019 1:18 PM SUPERVISOR METAL HANGING Similar appearance of the distal right vertebral artery irregularity and mild narrowing at C1, r elated to the nonocclusive luminal thrombus, as seen on the prior CTA exams . MRA neck otherwise negative and unchanged. Narrative 10/02/2019 1:18 PM SUPERVISOR METAL HANGING EXAM: ??INTERPRETATION OF OUTSIDE MR NECK COMPARISON: [...]
--- OUTSIDE RECORDS SUMMARY | 2022-09-20 14:33 | XMS_ITS | Encounter Summary ---
:1965 Author Organization [facility] Address [address] [place] [address] Care Team Providers Name Role Phone Unavailable Primary Care Provider Unavailable Reason for Visit Reason Onset Date Comments Schedule Surgery 10/05/2019 Encounter Details Date Type Department Care Team Description 10/05/2019 Clinical Department of [place], Schedule Surge ry Communication [place]ology [place], [place] 200 [facility] [address] [place] [phone] [place] [address] Social History Tobacco Use Types Packs/Day Years [...] you attend nondenominational or Patient refused 2021 mu-ism services? Do [...] Kaykay Murphy R.N. - 10/17/2019 8:10 AM SECURITY INCIDENT RESPONSE SPECIALIST Pt has return appt with EKO on 10/23 RITY INCIDENT RESPONSE SPECIALIST Telephone Encounter - Alana Engel L.P.N. - 10/09/2019 2:49 PM CST Note sent to DR. Olmedo and patient's Neurology team to discuss clearance for surgery. Desk is scheduling a return for the patient ot discuss surgery. RITY INCIDENT RESPONSE SPECIALIST Telephone Encounter - Alana Engel L.P.N. [...] following references were used: provider Dr. Olmedo RITY INCIDENT RESPONSE SPECIALIST Telephone Encounter - Zoey Lipscomb - [...] surgical date. She can be reached at [phone]. RITY INCIDENT RESPONSE SPECIALIST documented in this encounter Plan of Treatment Not on filedocumented as of this encounter Visit Diagnoses Not on filedocumented in this encounter Additional Health Concerns Assessment Noted Time PHQ-9 Depression Total Score: 5 04/05/2019 8:00 AM CDT documented as of this encounter
--- OUTSIDE RECORDS SUMMARY | 2022-09-20 14:33 | XMS_ITS | Encounter Summary ---
:1965 Author Organization [facility] Address [address] [place] [address] Care Team Providers Name Role Phone Unavailable Primary Care Provider Unavailable Encounter Details Date Type Department Care Team Description 10/03/2019 Clinical Communication Department of Robert Diehl, Neurology in .[place], [place] 200 [facility] 200 [place] [phone] Social History Tobacco Use Types Packs/Day Years [...] you attend shinto or Patient refused 2021 restorationist services? Do [...] Coby this is for you, records request SALES TECHNICAL CONSULTANT Telephone Encounter - Janis Preston R.N. - 10/03/2019 3:11 PM CST Called patient back with update about aspirin per Dr. Diehl. Patient voiced understanding that she will stop the warfarin and continue baby aspirin. She wants notes about her visit sent to her Dr[place]ittonin [place]. Janis Preston R.N. SALES TECHNICAL CONSULTANT Telephone Encounter - Janis Preston R.N. - [...] dose and warfarin discontinuation. Janis Preston R.N. SALES TECHNICAL CONSULTANT documented in this encounter Plan of Treatment Not on filedocumented as of this encounter Visit Diagnoses Not on filedocumented in this encounter Additional Health Concerns Assessment Noted Time PHQ-9 Depression Total Score: 5 04/05/2019 8:00 AM CDT documented as of this encounter
--- OUTSIDE RECORDS SUMMARY | 2022-09-20 14:34 | XMS_ITS | Encounter Summary ---
:1965 Author Organization [facility] Address [address] [place] [address] Care Team Providers Name Role Phone Unavailable [...]
--- OUTSIDE RECORDS SUMMARY | 2022-09-20 14:34 | XMS_ITS | Encounter Summary ---
:1965 Author Organization [facility] Address [address] [place] [address] Care Team Providers Name Role Phone Unavailable [...] you attend yarsani or Patient refused 2021 zoroastrianism services? Do [...] Results [place] Esophagram (08/24/2007 10:57 AM [facility]) Anatomical Region Laterality Modality Gastro Intestinal, Abdominal RST LOS N/A Rad iographic Imaging Specimen (Source) Anatomical Collection Method Collection Time Re ceived Time Location / / Volume Laterality 08/24/2007 10:57 AM MST Narrative 08/24/2007 11:41 AM [facility] Indications: ?STATUS POST GASTRIC BYPASS ORIGINAL [...]
--- OUTSIDE RECORDS SUMMARY | 2022-09-20 14:34 | XMS_ITS | Encounter Summary ---
:1965 Author Organization [facility] Address [address] [place] [address] Care Team Providers Name Role Phone Unavailable [...] Address City/State/ZIP Code Phon e Number [place] CON[place] documented in this encounter Visit Diagnoses Not on filedocumented in this encounter
== END 2022-09-20 13:55 | disposition left against medical advice (07) ==
PROVIDERS: PCP Family Medicine
DX: Z53.21 Procedure and treatment not carried out due to patient leaving prior to being seen by health care provider (principal)

== ENCOUNTER 2022-11-06 13:52 | Emergency (ER) | payer MEDICARE, OTHER, SELFPAY ==
[2022-11-06 14:04] VITALS: BP 118/74; PULSE 96; RESP 18; TEMP 36.4; O2SAT 96; BMI 27.1
--- NOTE | 2022-11-06 15:07 | CRLHL7_ITS ---
For Patients: As a result of the Cures Act, medical imaging exams and procedure reports are released immediately into your electronic medical record. You may view this report before your referring provider. If you have questions, please contact your health care provider. INDICATION: Recent COVID infection cough, rib pain TECHNIQUE: Chest 2 views. COMPARISON: Chest x-ray 04/07/2021 FINDINGS: The heart is normal in size. The pulmonary vasculature is within normal limits. The lungs are clear without focal consolidation, pleural effusion or pneumothorax. There are postsurgical changes of the lower cervical/upper thoracic spine. Nerve stimulator device is present with 2 leads projecting over the mid thoracic spine. Postsurgical changes of left shoulder arthroplasty. Mild multilevel degenerative changes of the thoracic spine. Stable healed rib fracture deformities. No acute fracture is visualized. IMPRESSION: No acute process. Dictated by Wendy Abebe MD @ 11/06/2022 3:36:41 PM Dictated by: Wendy Abebe MD @ 11/06/2022 15:36:49 (Electronically Signed)
--- NOTE | 2022-11-06 15:08 | ED.GENADULT ---
HPI - General Adult General Chief complaint: Shortness of Breath/Dyspnea Stated complaint: Hurts to Breathe Time Seen by Provider: 11/06/22 14:38 History of Present Illness HPI narrative: This 57-year-old female states that she had COVID a few weeks ago and has had persistent coughing. She recently tested negative for COVID but comes in today reporting frequent coughing with associated rib and chest pain. She states that she has some wheezes that occur at night. She does not report any fevers. Related Data Home Medications Medication Instructions Recorded Confirmed cholecalciferol (vitamin D3) 125 5,000 unit PO DAILY 06/07/22 09/16/22 mcg (5,000 unit) tablet cyanocobalamin (vitamin B-12) 5,000 mcg PO DAILY 06/07/22 09/16/22 2,500 mcg tablet esomeprazole magnesium 40 mg 40 mg PO DAILY 06/07/22 09/16/22 capsule,delayed release magnesium gluconate 27.5 mg 27.5 mg PO DAILY 06/07/22 09/16/22 magnesium (500 mg) tablet oxycodone 5 mg tablet 5 mg PO QID 06/07/22 09/16/22 polyethylene glycol 3350 17 17 g PO QDAY 08/20/22 09/16/22 gram/dose oral powder Previous Rx's Medication Instructions Recorded acetaminophen 650 mg 1,300 mg PO .Every 8 Hours #180 06/08/22 tablet,extended release tabs lamotrigine 200 mg tablet 200 mg PO BID #60 tabs 06/08/22 valacyclovir 500 mg tablet 500 mg PO DAILY cold sores #90 tabs 06/14/22 albuterol sulfate 90 mcg/actuation 2 puff inhalation Q6H PRN 07/23/22 aerosol inhaler (Ventolin HFA) shortness of breath or wheezing #8.5 grams aspirin 81 mg tablet,delayed 81 mg PO QDAY #90 tabs 07/23/22 release cetirizine 10 mg tablet (Zyrtec) 10 mg PO QDAY #90 tabs 07/23/22 pregabalin 300 mg capsule 300 mg PO BID #120 caps 07/23/22 quetiapine 50 mg tablet 50 mg PO .Bedtime sleep #30 tabs 07/23/22 sumatriptan 5 mg/actuation nasal 5 mg intranasal ONCE PRN migraine 07/23/22 spray headache #6 ea diazepam 5 mg tablet (Valium) 5 mg PO BID PRN anxiety #60 tabs 08/04/22 amitriptyline 25 mg tablet 25 mg PO DAILY #30 tabs 08/14/22 diclofenac sodium 1 % topical gel 2 g topical QID #100 grams 08/23/22 ropinirole 4 mg tablet 4 mg PO .Bedtime #90 tabs 08/23/22 triamcinolone acetonide 0.1 % 1 applic topical BID #453.6 grams 08/23/22 topical cream hydrocortisone 1 % topical cream 1 applic topical BID-QID PRN 09/16/22 (Anti-Itch (hydrocortisone)) itching #28.35 grams atorvastatin 40 mg tablet 40 mg PO QDAY #90 tabs 09/24/22 benzonatate 100 mg capsule 100 mg PO TID PRN cough #30 caps 10/06/22 bupropion HCl 150 mg 24 hr tablet, 150 mg PO QAM #90 tabs 10/20/22 extended release (Wellbutrin XL) bupropion HCl 300 mg 24 hr tablet, 300 mg PO QAM #90 tabs 10/20/22 extended release meclizine 25 mg tablet (Dramamine 25 mg PO Q8H PRN dizziness #30 tabs 10/22/22 (meclizine)) tizanidine 4 mg tablet 4 mg PO Q8H PRN muscle spasticity 10/26/22 #30 tabs rizatriptan 10 mg tablet 10 mg PO ONCE PRN migraine 11/01/22 headache #10 tabs methylprednisolone 4 mg tablets in See Rx Instructions PO .COMPLEX 11/06/22 a dose pack (Medrol (Ghassan)) #21 ea Allergies Allergy/AdvReac Type Severity Reaction Status Date / Time acyclovir Allergy Mild rash Verified 09/16/22 14:11 shingles like benzoin Allergy Mild rash, Verified 09/16/22 14:11 blisters, itching Cephalosporins Allergy Mild Rash Verified 09/16/22 14:11 penicillin V Allergy Mild Rash Verified 09/16/22 14:11 adhesive Allergy Unknown contact Verified 09/16/22 14:11 dermatitis to tape amoxicillin Allergy Unknown Rash Verified 09/16/22 14:11 baclofen Allergy Unknown Rash Verified 09/16/22 14:11 cefaclor Allergy Unknown Rash Verified 09/16/22 14:11 chlorhexidine Allergy Unknown contact Verified 09/16/22 14:11 dermatitis fentanyl Allergy Unknown Hallucinati Verified 09/16/22 14:11 ng gabapentin Allergy Unknown muscular Verified 09/16/22 14:11 twitch, slurred speech nortriptyline Allergy Unknown Palpitation Verified 09/16/22 14:11 s NSAIDS (Non-Steroidal Allergy Unknown gastric Verified 09/16/22 14:11 Anti-Inflamma bypass silver Allergy Unknown contact Verified 09/16/22 14:11 dermatitis Milk solids Allergy Intermediate Vomiting Uncoded 09/16/22 14:11 RACHEL Allergy Mild rash Uncoded 09/16/22 14:11 needing early removal Pollen Allergy Unknown runny nose Uncoded 09/16/22 14:11 Soy Allergy Allergy Unknown Uncoded 09/16/22 14:11 Sulfamethoxazole / Allergy Unknown nausea, GI Uncoded 09/16/22 14:11 trimethoprim upset dermbond AdvReac Unknown contact Uncoded 09/16/22 14:11 dermatitis Review of Systems Status of ROS: Reports: 10 or more systems reviewed and unremarkable except as noted in History and below Narrative: Constitutional: No fevers, no weight gain or loss. Eyes: No discharge. No vision changes. HENT: No congestion, no sore throat, no ear pain. Cardiovascular: No chest pain, no palpitations. Respiratory: Frequent coughing with associated rib been chest pain. She reports wheezes in the evening and morning. Gastrointestinal: No abdominal pain, no vomiting, no diarrhea. Genitourinary: No dysuria, no hematuria. Musculoskeletal: Normal range of motion. Skin: No rashes, no pruritis. Neurological: No dizziness, weakness, sensory change, speech change. Endo/Heme/Allergies: No bruising or bleeding. No polydipsia. Pysch: no suicidality, no anxiety, no insomnia. All other systems reviewed and are negative. [facility] Medical History Allergic rhinitis Ataxia due to cerebrovascular disease Bipolar II disorder Cerebral arteriosclerosis with history of previous cerebrovascular accident Chronic back pain Chronic neck pain Chronic obstructive pulmonary disease Continuous opioid dependence (08/27/16) Cyclothymic disorder Fibromyalgia ELLEN (generalized anxiety disorder) Herpes labialis History of cerebrovascular accident History of skin cancer Migraine Neuropathy associated with polyneuropathy, organomegaly, endocrinopathy, monoclonal gammopathy, and skin changes syndrome Nicotine dependence Polypharmacy Posttraumatic stress disorder Pyogenic arthritis of left shoulder region (03/25/21) Restless legs syndrome 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) Surgical History History of abdominoplasty History of arthroplasty of both knees History of bilateral cataract extraction History of carpal tunnel release of both wrists (2016) History of cholecystectomy History of foot surgery History of gastric bypass (1999) History of left shoulder replacement History of mastopexy History of neck surgery History of nevus excision History of sinus surgery History of spinal surgery History of total hysterectomy with bilateral salpingo-oophorectomy (BSO) History of tubal ligation Status post insertion of spinal cord stimulator Family History Family/Other Breast cancer Lung cancer Father Cancer Coronary artery disease Sister Congenital heart defect Mother Pancreatic cancer, Onset Age: 60 Social History Narrative: medical marijuana use chronic narcotic use tobacco use Smoking Status: Current every day smoker What tobacco products do you use: cigarettes Smoking quit date/years: <= 15 years ago Do you use any of these nicotine containing products: Vaping Products Second hand tobacco smoke exposure: No How often do you have a drink containing alcohol: never How often do you have six or more drinks on one occasion: Never AUDIT-C Alcohol total score: 0 Non-prescribed substance use: marijuana (any form) Little interest or pleasure in doing things: more than half the days Feeling down, depressed, or hopeless: several days service: No Exam Narrative: Exam Narrative: Constitutional: Well-developed, well-nourished, no acute distress. HEENT: Normocephalic, atraumatic. Neck: Normal range of motion. Nontender. Supple. Heart: Regular. No murmurs. Normal rate. Intact distal pulses. Lungs: Clear to auscultation. No chest discomfort. No wheezes, rhonchi, or rales. No use of accessory muscles for breathing. Abdomen: Normal bowel sounds. Nontender. No rebound tenderness. Genitalia: Deferred. Back: No midline tenderness. Normal range of motion. Extremities: Normal range of motion. No injury. Skin: Intact. No rash. Warm. No erythema or pallor. Neurologic: No altered sensation. No weakness. Alert and oriented. Psychiatric: No suicidality. No anxiety or depression. No insomnia. Nursing notes and vitals signs are reviewed. Const: Vital Signs, click to edit/add: Vital Signs - 24 hr 11/06/22 14:04 Temperature 97.5 F L Pulse Rate [Right Pulse Oximeter] 96 Respiratory Rate 18 Blood Pressure [Ri ght Upper Arm] 118/74 Pulse Oximetry 96 Oxygen Delivery Me thod Room Air Course Vital Signs Vital signs: Initial Vital Signs Temperature 97.5 F L 11/06/22 14:04 Temperature Source Temporal Artery Scan 11/06/22 14:04 Pulse Rate 96 11/06/22 14:04 Respiratory Rate 18 11/06/22 14:04 Blood Pressure 118/74 11/06/22 14:04 Blood Pressure Mean 88 11/06/22 14:04 Blood Pressure Position Sitting 11/06/22 14:04 Pulse Oximetry 96 11/06/22 14:04 Oxygen Delivery Method 11/06/22 14:04 Vital Signs Temperature 97.5 F L 11/06/22 14:04 Pulse Rate 96 11/06/22 14:04 Respiratory Rate 18 11/06/22 14:04 Blood Pressure 118/74 11/06/22 14:04 Pulse Oximetry 96 11/06/22 14:04 Oxygen Delivery Method 11/06/22 14:04 Temperature 97.5 F L 11/06/22 14:04 Pulse Rate 96 11/06/22 14:04 Respiratory Rate 18 11/06/22 14:04 Blood Pressure 118/74 11/06/22 14:04 Pulse Oximetry 96 11/06/22 14:04 Oxygen Delivery Method 11/06/22 14:04 Medical Decision Making [facility] Narrative Medical decision making narrative: This patient comes in with chest wall pain related to persistent coughing. She has not had any fevers. She was positive for COVID and a recent test is now negative. Chest x-ray shows no acute findings. She presents with normal vital signs. I did prescribe a Medrol Dosepak and some tablets of Tylenol 3 to help with her symptoms. Imaging Data Chest x-ray: Radiologist's impression: FINDINGS: The heart is normal in size. The pulmonary vasculature is within normal limits. The lungs are clear without focal consolidation, pleural effusion or pneumothorax. There are postsurgical changes of the lower cervical/upper thoracic spine. Nerve stimulator device is present with 2 leads projecting over the mid thoracic spine. Postsurgical changes of left shoulder arthroplasty. Mild multilevel degenerative changes of the thoracic spine. Stable healed rib fracture deformities. No acute fracture is visualized. IMPRESSION: No acute process. Discharge Plan Discharge Clinical Impression: Acute chest wall pain, Acute upper respiratory infection, Cough Patient Disposition: Home, Self-Care Condition: Stable Additional Instructions: Take medication as prescribed. Follow up with MD or return if worsening. Prescriptions: New methylprednisolone [Medrol (Ghassan)] 4 mg tablets,dose pack See Rx Instructions .ROUTE .COMPLEX Qty: 21 0RF Rx Instructions: orally per package directions No Action esomeprazole magnesium 40 mg capsule,delayed release(DR/EC) 40 mg PO DAILY magnesium gluconate 27.5 mg magne- sium (500 mg) tablet 27.5 mg PO DAILY cholecalciferol (vitamin D3) 125 mcg (5,000 unit) tablet 5,000 unit PO DAILY cyanocobalamin (vitamin B-12) 2,500 mcg tablet 5,000 mcg PO DAILY oxycodone 5 mg tablet 5 mg PO QID hydrocortisone [Anti-Itch (HC)] 1 % cream 1 applic topical BID-QID PRN (Reason: itching) Qty: 28.35 0RF diazepam [Valium] 5 mg tablet 5 mg PO BID PRN (Reason: anxiety) Qty: 60 0RF polyethylene glycol 3350 17 gram/dose powder 17 g PO QDAY ropinirole 4 mg tablet 4 mg PO .Bedtime Qty: 90 3RF triamcinolone acetonide 0.1 % cream 1 applic topical BID Qty: 453.6 0RF diclofenac sodium 1 % gel 2 g topical QID Qty: 100 2RF amitriptyline 25 mg tablet 25 mg PO DAILY Qty: 30 2RF lamotrigine 200 mg tablet 200 mg PO BID Qty: 60 12RF acetaminophen 650 mg tablet extended release 1,300 mg PO .Every 8 Hours Qty: 180 12RF valacyclovir 500 mg tablet 500 mg PO DAILY Qty: 90 3RF aspirin 81 mg tablet,delayed release (DR/EC) 81 mg PO QDAY Qty: 90 3RF cetirizine [Zyrtec] 10 mg tablet 10 mg PO QDAY Qty: 90 3RF pregabalin 300 mg capsule 300 mg PO BID Qty: 120 2RF Rx Instructions: Total dose 450 mg BID albuterol sulfate [Ventolin HFA] 90 mcg/actuation HFA aerosol inhaler 2 puff inhalation Q6H PRN (Reason: shortness of breath or wheezing) Qty: 8.5 2RF quetiapine 50 mg tablet 50 mg PO .Bedtime Qty: 30 5RF sumatriptan 5 mg/actuation spray,non-aerosol 5 mg intranasal ONCE PRN (Reason: migraine headache) Qty: 6 5RF Rx Instructions: 1-2 SPRAYS IN ONE NOSTRIL AT ONSET OF HEADACHE, MAY REPEAT Q2H PRN, MAX 4 SPRAYS/24 HRS atorvastatin 40 mg tablet 40 mg PO QDAY Qty: 90 1RF benzonatate 100 mg capsule 100 mg PO TID PRN (Reason: cough) Qty: 30 0RF bupropion HCl 300 mg tablet extended release 24 hr 300 mg PO QAM Qty: 90 3RF Rx Instructions: Take with the 150mg tab, for a total of 450 mg daily. bupropion HCl [Wellbutrin XL] 150 mg tablet extended release 24 hr 150 mg PO QAM Qty: 90 3RF Rx Instructions: Take with the 300mg tab, for a total of 450 mg daily. meclizine [Dramamine (meclizine)] 25 mg tablet 25 mg PO Q8H PRN (Reason: dizziness) Qty: 30 1RF tizanidine 4 mg tablet 4 mg PO Q8H PRN (Reason: muscle spasticity) Qty: 30 1RF rizatriptan 10 mg tablet 10 mg PO ONCE PRN (Reason: migraine headache) Qty: 10 0RF Rx Instructions: TAKE ONE TAB AT ONSET OF HEADACHE, MAY REPEAT Q2H PRN, MAX 30 MG/24 HRS Follow Up/Referrals: Clemente Blackwell MD [Primary Care Provider] - Stand Alone Forms: [employer] Info Instructions
--- OUTSIDE RECORDS SUMMARY | 2022-11-06 15:20 | XMS_ITS | Clinical Summary ---
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 Oxygen Saturation 98% 10/14/2017 4:28 PM BRAKE SPECIALIST Inhaled Oxygen Concentration - - Weight 74.8 [...] this topic Medical Devices Implanted Type Area Veneer Drier Tailer Device Shelf Model / Identifier Expiration Serial / Date Lot Device Tvt Obturator Laser [id number] Other N/A: [employer] 04/27/2018 [id number] / Implanted: Qty: 1 on 10/14/2017 by Rain Herring MD at [facility]- / [id number] Procedures Procedure Name Priority Date/Time Associated Comments [...] IFA with Reflex (08/10/2022 11:10 AM CDT) [facility] Method Time Signature ERYN interpretation Negative Negative [...] Code Phon e Number SPECIALTY CORE/PROT/ENDO Specialty [place], [place] [address] Core/Prot/Endo [address] [facility] [address] [facility], Room 3-580 Lyme Disease Total [...] Unknown AM CDT 11:10 AM CDT Clemente aKtz PA-C LAB - BLOOD ORDERABLES Performing Organization Address City/[facility]/ZIP Code Phon e Number SPECIALTY CORE/PROT/ENDO Specialty [place], [place] [address] Core/Prot/Endo [address] [facility] [address] [facility], Room 3-580 Uric acid (08/10/2022 11:10 AM CDT) athologist Signature Uric Acid 4.8 2.0 - 7.5 08/10/2022 [facility] mg/dL 11:36 AM CDT Specimen Anatomical Collection Method / Collection Time Recei jose Time (Source) Location / Volume Laterality Blood STRUCTURE OF RIGHT Venipuncture / 08/10/2022 11:10 HAND / Unknown Unknown AM CDT 11:10 AM CDT Clemente Katz PA-C LAB - BLOOD ORDERABLES Performing Organization Address City/State/ZIP Code Phon e Number [facility] [place] [address] [facility] [address] TSH (08/10/2022 11:10 AM CDT) athologist Signature TSH 0.92 0.30 - 5.00 08/10/2022 [facility] uIU/mL 12:01 PM CDT Specimen Anatomical Collection Method / Collection Time Recei jose Time (Source) Location / Volume Laterality Blood STRUCTURE OF RIGHT Venipuncture / 08/10/2022 11:10 HAND / Unknown Unknown AM CDT 11:10 AM CDT Clemente Katz PA-C LAB - BLOOD ORDERABLES Performing Organization Address City/State/ZIP Code Phon e Number [facility] [place] [address] [address] [facility] Thyroxine total (08/10/2022 11:10 AM CDT) [...] LAB - BLOOD ORDERABLES Performing Organization Address City/[facility]/ZIP Code Phon [place] [address] Lab [address] [facility], Room 3-580 T4 free (08/10/2022 11:10 [...] City/State/ZIP Code Ph[place] [address] Lab [address] [facility], Room 3[facility] T3 total (08/10/2022 11:10 AM CDT) athologist [...] City/State/ZIP Code Phon e Number [facility] [place] [place] [address] Lab [address] [facility], Room 3[facility] Rheumatoid factor (08/10/2022 11:10 AM CDT) athologist Signature Rheumatoid <6 <12 IU/mL 08/10/2022 [facility] Factor 3:34 PM CDT CORE/PROT/ENDO Specimen Anatomical Collection Method / Collection Time Recei jose Time (Source) Location / Volume Laterality Blood STRUCTURE OF RIGHT Venipuncture / 08/10/2022 11:10 HAND / Unknown Unknown AM CDT 11:10 AM CDT Clemente Katz PA-C LAB - BLOOD ORDERABLES Performing Organization Address City/[facility]/ZIP Code Phon e Number [facility] SPECIAL[facility] CORE/PROT/ENDO [facility] Specialty [place], [place] [address] Core/Prot/Endo [address] [facility], Room 3[facility] (ABNORMAL) D dimer quantitative (08/10/2022 11:10 AM CDT) [facility] gist Method Time Signature D-Dimer 1.69 (H) 0.00 - 08/10/2022 [facility] Quantitative 0.50 11:28 AM CDT ug/mL FEU Specimen Anatomical Collection Method / Collection Time Recei jose Time (Source) Location / Volume Laterality Blood STRUCTURE OF RIGHT Venipuncture / 08/10/2022 11:10 HAND / Unknown Unknown AM CDT 11:10 AM CDT Narrative [facility] - 08/10/2022 11:28 AM CDT This D-dimer assay is intended for use i n conjunction with a clinical pretest probability assessment model to exclude pulmonary embolism (PE) and deep venous thrombosis (DVT) in outpatients suspecte d of PE or DVT. The cut-off value is 0.50 ug/mL FEU. Clemente Katz PA-C LAB - BLOOD ORDERABLES Performing Organization Address City/[facility]/ZIP Code Phon e Number [facility] [place] [address] CRP inflammation (08/10/2022 11:10 AM CDT) P athologist Signature CRP 0.2 0.0 - <0.8 08/10/2022 [facility] mg/dL 11:33 AM CDT Specimen Anatomical Collection Method / Collection Time Recei jose Time (Source) Location / Volume Laterality Blood STRUCTURE OF RIGHT Venipuncture / 08/10/2022 11:10 HAND / Unknown Unknown AM CDT 11:10 AM CDT Clemente Katz PA-C LAB - BLOOD ORDERABLES Performing Organization Address City/[facility] Code Phon e Number [facility] [place] [address] WBC and Differential (08/10/2022 11:05 AM CDT) Analysis Performed At Patho logist Time Signature WBC Count 4.2 4.0 - 11.0 08/10/2022 [facility] 10e3/uL 11:16 AM CDT % Neutrophils 43 % 08/10/2022 [facility] 11:16 AM CDT % Lymphocytes 42 % 08/10/2022 [facility] 11:16 AM CDT % Monocytes 11 % 08/10/2022 [facility] 11:16 AM CDT % Eosinophils 3 % 08/10/2022 [facility] 11:16 AM CDT % Basophils 1 % 08/10/2022 [facility] 11:16 AM CDT % Immature 0 % 08/10/2022 [facility] Granulocytes 11:16 AM CDT NRBCs per 100 WBC 0 <1 /100 08/10/2022 [facility] 11:16 AM CDT Absolute 1.8 1.6 - 8.3 08/10/2022 [facility] Neutrophils 10e3/uL 11:16 AM CDT Absolute 1.8 0.8 - 5.3 08/10/2022 [facility] Lymphocytes 10e3/uL 11:16 AM CDT Absolute 0.5 0.0 - 1.3 08/10/2022 [facility] Monocytes 10e3/uL 11:16 AM CDT Absolute 0.1 0.0 - 0.7 08/10/2022 [facility] Eosinophils 10e3/uL 11:16 AM CDT Absolute 0.0 0.0 - 0.2 08/10/2022 [facility] Basophils 10e3/uL 11:16 AM CDT Absolute Immature 0.0 <=0.4 08/10/2022 [facility] Granulocytes 10e3/uL 11:16 AM CDT Absolute NRBCs 0.0 10e3/uL 08/10/2022 [facility] 11:16 AM CDT Specimen Anatomical Collection Method / Collection Time Recei jose Time (Source) Location / Volume Laterality Blood STRUCTURE OF RIGHT Venipuncture / 08/10/2022 11:05 HAND / Unknown Unknown AM CDT 11:05 AM CDT Clemente Katz PA-C LAB - BLOOD ORDERABLES Performing Organization Address City/[facility]/ZIP [place] [address] Erythrocyte sedimentation rate auto (08/10/2022 11:05 AM CDT) [facility] gist Method Time Signature Erythrocyte 13 0 - 20 08/10/2022 [facility] Sedimentation Rate mm/hr 11:45 AM CDT Specimen Anatomical Collection Method / Collection Time Recei jose Time (Source) Location / Volume Laterality Blood STRUCTURE OF RIGHT Venipuncture / 08/10/2022 11:05 HAND / Unknown Unknown AM CDT 11:05 AM CDT Clemente Katz PA-C LAB - BLOOD ORDERABLES Performing Organization Address City/[facility]/ZIP [place] [address] from Last 3 Months Insurance Payer Benefit Plan / Subscriber ID Effective Dates Phone Addre ss Type Group MEDICARE MEDICARE [id number] 2012-Ariana [phone] ATTN CL AIMS Medicare nt 0 [address] [place] [address] MEDICA MEDICA ACCESS [id number] 2016-Dirk [phone] [place] [address] [address] [address] [place] [address] Care Teams Electronic Video Games Servicer Relationship Specialty Start Date End Date Clinic, [facility] PCP - General 06/03/171999 [place] [address]
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
--- OUTSIDE RECORDS SUMMARY | 2022-11-06 15:21 | XMS_ITS | Encounter Summary ---
:1965 Author Organization [place] Address [address] [place] [address] Care Team Providers Name Role Phone Unavailable Primary Care Provider Unavailable Encounter Details Date Type Department Care Team Description 07/29/2011 Historic Notes INTERFACED REPORT Interface, Transcript onMD Social History Tobacco Use Types Packs/Day Years Used Date Smoking Tobacco: Never Assessed Sex Assigned at Date Recorded Not on file documented as of this encounter Progress Notes Interface, Research Associate - 08/30/2011 5:48 PM CDT Allergies ?? [...]
--- OUTSIDE RECORDS SUMMARY | 2022-11-06 15:21 | XMS_ITS | Encounter Summary ---
:1965 Author Organization [place] Address [address] [place] [address] Care Team Providers Name Role Phone Clinic, [facility] Primary Care Provide r Mor Bautista MD Unavailable Reason for Visit Reason Onset Date Comments Appointment 05/12/2021 Encounter Details Date Type Department Care Team Description [facility] None Appointment [place] [phone] Social History Tobacco Use Types Packs/Day Years Used Date Smoking Tobacco: Every Day Cigarettes 0.5 Smokeless Tobacco: Never Alcohol Use Standard Drinks/Week Comments No 0 (1 standard drink = 0.6 oz pure alcoho l) Sex Assigned at Date Recorded Not on file documented as of this encounter Miscellaneous Notes Telephone Encounter - Tiffanie Georges - 05/12/2021 12:17 PM CDT [facility] Call Center Phone Message May a detailed message be left on voicemail: yes Reason for Call: Other: Pt requesting call back, pt stated she is returning a call to the clinic. Seed Collector did not see any notes in the pt's chart to refer to. Pt stated she is being referred from [facility] for a staph infection in her shoulder, pt stated she is needing to be seen this week. Pt stated she has trouble finding an antibiotics that works due to all the allergies she has Action Taken: Message routed to: [facility]): ID documented in this encounter Plan of Treatment Not on filedocumented as of this encounter Visit Diagnoses Not on filedocumented in this encounter Care Teams Encephalographer Relationship Specialty Start Date End Date Clinic, [facility] PCP - General 06/03/[address] [address] Mor Bautista MD Assigned Infectious Disease 06/12/2106/25 225 Mohan Porter Provider [address] [address] documented as of this encounter
--- OUTSIDE RECORDS SUMMARY | 2022-11-06 15:21 | XMS_ITS | Encounter Summary ---
:1965 Author Organization [place] Address [address] [place] [address] Care Team Providers Name Role Phone Clinic, [facility] Primary Care Provide r Encounter Details Date Type Department Care Team Description [facility]/20[facility]2021 [facility] [address] [place] [phone] Social History Tobacco Use Types Packs/Day Years [...] Bacterial Culture Routine (03/20/2021 6:00 AM CDT) [facility] Method Time Signature Culture STAPHYLOCOCCUS 03/27/2021 [facility] EPIDERMIDIS (A) 8:01 AM CDT [facility] Comment: Staphylococcus epidermidis Isolated from broth only Gram Stain 4+ Polymorphonuclear 03/27/2021 8:01 AM HEALTH Result leukocytes CD[facility] Gram Stain No organisms seen 03/27/2021 8:01 AM HEALTH Result CDT [facility] Specimen Anatomical Collection Method [...] 1: Ortiz sceptible Comment: Z96.612 Clemente Blackwell [employer] [facility] ORDERABL ES Performing Organization Address City/[facility]/[place] [address] [address] [facility] Anaerobic Bacterial Culture Routine (03/20/2021 6:00 AM CDT) [facility] Method Time Signature Culture No anaerobic 03/23/2021 HEALTH organisms 7:18 AM CDT [facility] Specimen Anatomical Collection Method Collection Time Receive d Time (Source) Location / / Volume Laterality Body fluid Non-blood 03/20/2021 6:00 AM 1 specimen Collection / CDT 12:05 PM CDT (specimen) Unknown Clemente Blackwell LAB - MICRO GENERAL ORDERABL ES Performing Organization Address City/State/[place] [address] [address] [facility] (ABNORMAL) Cell count with differential fluid (03/20/2021 6:00 AM CDT) [facility] Method Time Signature Color Red 03/20/2021 HEALTH 2:04 PM CDT [facility] Clarity Turbid 03/20/2021 HEALTH 2:04 PM CDT [facility] Total Nucleated 42,864 (H) 0 - 99 03/20/2021 [facility] Cells /uL 2:04 PM CDT [facility] RBC, Fluid >50,000 <50,000 03/20/2021 HEALTH (A) /ul 2:04 PM CDT [facility] % Neutrophils 91 (H) <=25 % 03/20/2021 [facility] 2:04 PM CDT [facility] % Lymphocytes 8 <=78 % 03/20/2021 [facility] 2:04 PM CDT [facility] Monocyte % 1 <=71 % 03/20/2021 [facility] 2:04 PM CDT [facility] Macrophage % 03/20/2021 [facility] 2:04 PM CDT [facility] Mesothelials, 03/20/2021 [facility] Fluid 2:04 PM CDT [facility] % Eosinophils 03/20/2021 [facility] 2:04 PM CDT [facility] % Other Cells 03/20/2021 [facility] 2:04 PM CDT [facility] Specimen Anatomical Collection Method Collection Time Receive d Time (Source) Location / / Volume Laterality Body fluid BODY FLUID Non-blood 03/20/2021 6:00 AM specimen SPECIMEN / Unknown Collection / CDT 12:05 PM CDT (specimen) Unknown Narrative [facility] - 03/20/2021 2:04 PM CDT Large clot present; count may be inaccur ate. Clemente Blackwell LAB - BODY FLUIDS ORDERABLES Performing Organization Address City/State/ZIP Code Phon [place] [address] [place] [address] [place] [address] [facility] [place] [address], [facility] [phone] documented in this encounter Visit Diagnoses Not on filedocumented in this encounter Care Teams Concrete Products Dispatcher Relationship Specialty Start Date End Date Clinic, [facility] PCP - General 06/03/171999 [place] [address] documented as of this encounter
--- OUTSIDE RECORDS SUMMARY | 2022-11-06 15:21 | XMS_ITS | Encounter Summary ---
:1965 Author Organization [place] Address [address] [place] [address]. [place] [address] Care Team Providers Name Role Phone Clinic, [facility] Primary Care Provide r Reason for Visit Reason Comments Consult pt here with her neighbor Arin calderon, Encounter Details Date Type Department Care Team Description 05/14/2021 Office Visit - [facility] Mor Bautista [facility] Sheldon Patel MD osteomyelitis of right [address] [place] [address] [address] (H) [address] [facility] [address] [place], [place] [phone] [address] Social History Tobacco Use Types Packs/Day [...] disease history: Reviewed in the notes from [place] Medications: Reviewed prior to admission meds as [...] ?? GRAM STAIN? Gram stain performed by [place], [place] ?? Specimen Collected on Tissue - [...] this duration if possible. My cell is [id number]. I wrote for 90 days and warned pt about sunburn risk. She has hx of skin cancer. 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
--- OUTSIDE RECORDS SUMMARY | 2022-11-06 15:21 | XMS_ITS | Encounter Summary ---
:1965 Author Organization [place] Address [address] [place] [address] Care Team Providers Name Role Phone [facility], [facility] Primary Care Provide r Encounter Details Date Type Department Care Team Description 04/29[facility]2021 [facility] HE CONVERSION ProviderAlea Social History Tobacco [...] on filedocumented in this encounter Care Teams Title Insurance Agent Relationship Specialty Start Date End Date [facility] PCP - General 06/03/171999 [place] [address] documented as of this encounter
--- OUTSIDE RECORDS SUMMARY | 2022-11-06 15:21 | XMS_ITS | Encounter Summary ---
:1965 Author Organization [place] Address [address] [place] [address] Care Team Providers Name Role Phone [facility] Primary Care Provide r Encounter Details [...] Installer Relationship Specialty Start Date End Date [facility] PCP - General 06/03/171999 [place] [address] documented as of this encounter
--- OUTSIDE RECORDS SUMMARY | 2022-11-06 15:21 | XMS_ITS | Encounter Summary ---
:1965 Author Organization [place] Address [address] [place] [address] Care Team Providers Name Role Phone [facility], [facility] Primary Care Provide r Encounter Details Date Type Department Care Team Description [facility]/10[facility]2021 [facility] CON[facility] ProviderAlea Social History Tobacco [...] on filedocumented in this encounter Care Teams Loss Control Engineer Relationship Specialty Start Date End Date [facility] PCP - General 06/03/171999 [place] [address] documented as of this encounter
--- OUTSIDE RECORDS SUMMARY | 2022-11-06 15:21 | XMS_ITS | Encounter Summary ---
:1965 Author Organization [place] Address [facility] [place] [address] Care Team Providers Name Role Phone Clinic, [facility] Primary Care Provide r Reason for Visit Auth/Cert Specialty Diagnoses / Procedures Referred By Contact Refer red To Contact Surgery Diagnoses URGE AND STRESS INCONTINENCE,FEMALE STRESS INCONTINENCE Sh Periop Services Procedures CYSTOSCOPY, SLING TRANSVAGINAL [address], [address] [place] [address] Phone: Referral ID Status Reason Start Date Expiration Date Visits Requ ested Visits Authorized [id number] 1 1 Encounter Details Date Type Department Care Team Description 10/14/2017 Anesthesia Event [facility] SruthiEri rosa MD [facility] ANESTHESIA [address] [address] [facility] PeriOP Gayatri Combs, PMO ANALYST DRAGGER [address] [address] Services [address] [place] [address] Anesthesia Record Procedure Summary Procedure Name [...] Gayatri Combs, Vicki Collins D, Injectable; Tolerated DRAGGER RN well Retired Non-Surgical 10/14/17; 1254; Easy; 10/14/17 1254 by 09/28 06/13 1328 by Airway Intravenous; 4; mm; Gayatri Combs, Gayatri Poe, laryngeal mask airway; DRAGGER PMO ANALYST DRAGGER midline; Equal, clear and bilateral; DRAGGER; hh Urethral Catheter 10/14/17; 1314; No; 10/14/17 1314 by 10/14/17 1316 by /GI/FIELD BROOMER Pelvic Usha Bar, Carole Duff, Procedure; 16 [...] MD, MD October 14, 2017 1:50 PM HOUSE TECHNICIAN Anesthesia Preprocedure Evaluation - Mini Negro MD [...] ??? Acyclovir Rash ??? Cephalosporins Rash ??? [place] Rash Past Medical History: Diagnosis Date ??? Fibromyalgia, primary ??? Migraine ??? Osteoporosis ??? Restless leg ??? Stress incontinence ??? Uncomplicated asthma Past Surgical History: Procedure Laterality Date ??? ABDOMEN SURGERY ??? BACK SURGERY ??? CHOLECYSTECTOMY ??? FIELD BROOMER SURGERY ??? ORTHOPEDIC SURGERY Social History Substance [...] (Takes 2 x 5000 unit tablet = 01913 unit dose) Yes Reported, Patient Esomeprazole Magnesium [...] Yes Reported, Patient naloxone (NARCAN) nasal spray [place] 4 mg into one nostril alternating nostrils [...] Reported, Patient Current Facility-Administered Medications Ordered in [facility] Medication Dose Route Frequency Last Rate Last Dose ??? Provider ordered ALTERNATE pre op antibiotic. 1 each As instructed Continuous ??? ciprofloxacin (CIPRO) infusion 400 mg 400 mg Intravenous Pre-Op/Pre-procedure x 1 dose No current [facility]-ordered outpatient prescriptions on file. ??? Another [...] GLC, BUN, CR, ROGER in the last 69296plccg. No results for input(s): AST, ALT, ALKPHOS, BILITOTAL, LIPASE in the last 71438 hours. No results for input(s): WBC, HGB, PLT in the last 20423 hours. No results for input(s): ABO, RH in the last 68119 hours. No results for input(s): INR, PTT in the last 45066 hours. No results for input(s): TROPI in the last 02072 hours. No results for input(s): PH, PCO2, PO2, HCO3 in the last 24192 hours. No results for input(s): HCG in the last 95074 hours. No results found for this or any previous visit (from the past 744 hour(s)). RECENT LABS: ECG: ECHO: HOUSE TECHNICIAN documented in this encounter Miscellaneous Notes Anesthesia [...] (Last set prior to Anesthesia Care Transfer) DRAGGER VITALS 10/14/2017 1258 - 10/14/2017 1334 10/14/2017 Pulse: 85 SpO2: 99 % Resp Rate (observed): 8 Resp Rate (set): 10 Electronically Signed By: Gayatri Combs APRN DRAGGER October 14, 2017 1:34 PM HOUSE TECHNICIAN documented in this encounter Plan of Treatment Not on filedocumented as of this encounter Visit Diagnoses Not on filedocumented in this encounter Administered Medications Inactive Administered Medications - up to 3 most recent administrations Medication Order MAR Action Action Date Dose Rate Site ciprofloxacin (CIPRO) infusion Given 10/14/2017 12:59 PM PUMP HOUSE TECHNICIAN 400 mg 400 mg Routine, 400 mg, Intravenous, PRE-OP/PRE-PROCEDURE, Starting on Tue10/14/17 at 1155, For 1 dose, Irritant., Indications: Perioperative Pharmacoprophylaxis, Pre-procedure New Bag 10/14/2017 12:26 PM PUMP HOUSE TECHNICIAN 400 mg dexamethasone (DECADRON) injection Given 10/14/2017 1:03 PM PUMP HOUSE TECHNICIAN 4 mg PRN, Administer over 1 Minutes, Starting on Tue10/14/17 at 1303, Anesthesia Intra-op dexmedetomidine (PRECEDEX) 4 mcg/mL bolu s Bolus 10/14/2017 1:08 PM PUMP HOUSE TECHNICIAN 8 mcg 200 mcg, CONTINUOUS PRN, Starting on Tue10/14/17 at 1305, Anesthesia Intra-op New Bag 10/14/2017 1:05 PM PUMP HOUSE TECHNICIAN 12 mcg fentaNYL (PF) (SUBLIMAZE) injection Given 10/14/2017 12:52 PM PUMP HOUSE TECHNICIAN 100 mcg PRN, moderate to severe pain, Administer over 3-5 Minutes, Starting on Tue10/14/17 at 1252, Anesthesia Intra-op lactated ringers infusion New Bag 10/14/2017 12:51 PM PUMP HOUSE TECHNICIAN Intravenous, CONTINUOUS PRN, Anesthesia Intra-op, Starting on Tue10/14/17 at 1251, Until Tue10/14/17 at 1334 lidocaine injection 2% (MDV) Given 10/14/2017 12:52 PM PUMP HOUSE TECHNICIAN 80 mg PRN, Starting on Tue10/14/17 at 1252, Anesthesia Intra-op midazolam (VERSED) injection Given 10/14/2017 12:51 PM PUMP HOUSE TECHNICIAN 2 mg Administer over 2 Minutes, PRN, anxiety, Starting on Tue10/14/17 at 1251, Anesthesia Intra-op ondansetron (ZOFRAN) injection Given 10/14/2017 1:03 PM PUMP HOUSE TECHNICIAN 4 mg PRN, nausea, vomiting, Administer over 2-5 Minutes, Starting on Tue10/14/17 at 1303, Anesthesia Intra-op propofol (DIPRIVAN) infusion Rate/Dose 10/14/2017 1:14 150 mcg/kg/min 66.5 mL/hr Intravenous, CONTINUOUS PRN, Change PM PUMP HOUSE TECHNICIAN Starting on Tue10/14/17 at 1252, Anesthesia Intra-op New Bag 10/14/2017 12:52 PM PUMP HOUSE TECHNICIAN 200 mcg/kg/min 88.7 mL/hr propofol (DIPRIVAN) injection 10 mg/mL v ial Given 10/14/2017 1:06 PM PUMP HOUSE TECHNICIAN 50 mg PRN, Starting on Tue10/14/17 at 1252, Anesthesia Intra-op Given 10/14/2017 12:52 PM PUMP HOUSE TECHNICIAN 150 mg documented in this encounter Care Teams Mechanical Supervisor Relationship Specialty Start Date End Date Clinic, [facility] PCP - General 06/03/171999 [place] [address] documented as of this encounter
--- OUTSIDE RECORDS SUMMARY | 2022-11-06 15:21 | XMS_ITS | Encounter Summary ---
:1965 Author Organization [facility] Address [address] [place] [address] Care Team Providers Name Role Phone Clinic, [facility] Primary Care Provide r Reason for Visit Reason Comments Referral Other ID Encounter Details Date Type Department Care Team Description 05/11/2021 Communication - [facility] Provider, Jameel howard; [facility]ID[facility] Specialties Patient Access [address] [place] [address] Social History Tobacco Use Types Packs/Day Years Used Date Smoking Tobacco: Every Day Cigarettes 0.5 Smokeless Tobacco: Never Alcohol Use Standard Drinks/Week Comments No 0 (1 standard drink = 0.6 oz pure alcoho l) Sex Assigned at Date Recorded Not on file documented as of this encounter Miscellaneous Notes Telephone Encounter - Historical Provider - 05/13/2021 11:10 AM CDT Date: 05/14/2021 Status: [facility] Time: 3:20 PM Length: 40 Visit Type: CONSULT [[id number]] Copay: $0.00 Provider: Mor Bautista MD Telephone Encounter - Historical Provider - 05/13/2021 8:45 AM CDT 05/13 - lvm x 2 Telephone Encounter - Historical Provider - 05/12/2021 9:21 AM CDT 05/12 - lvm x 1 to schedule in-clinic consultation with Dr Bautista, 05/14 Electronically signed by [facility] Provider at 05/12/2021 9:21 AM CDT Telephone Encounter - Historical Provider - 05/12/2021 8:02 AM CDT Records received.... 05/11/2021 3:59pm inside ID consult Telephone Encounter - Historical Provider - 05/11/2021 3:43 PM CDT 05/11 - called referring medical records x 1 they will send over records Electronically signed by [facility] Provider at 05/11/2021 3:43 PM CDT Telephone Encounter - Historical Provider - 05/11/2021 3:36 PM CDT ID TEAM REFERRAL ONLY received??? 05/11/2021 12:05pm inside ID consult [facility], , Referring: Dr David Cohn, DX: status post shoulder replacement, left Order comments: Asking for HALI, this week. Electronically signed by [facility] Provider at 05/11/2021 3:37 PM CDT documented in this encounter Plan of Treatment Not on filedocumented as of this encounter Visit Diagnoses Not on filedocumented in this encounter Care Teams Tire And Lube Technician Relationship Specialty Start Date End Date Clinic, [facility] PCP - General 06/03/171999 [place] [address] documented as of this encounter
--- OUTSIDE RECORDS SUMMARY | 2022-11-06 15:21 | XMS_ITS | Encounter Summary ---
:1965 Author Organization [place] Address [address] [place] [address] Care Team Providers Name Role Phone [facility], [facility] Primary Care Provide r Encounter Details Date Type Department Care Team Description [facility]20[facility] CON[facility] ProviderAlea Social History Tobacco Use [...] on filedocumented in this encounter Care Teams Correction Warden Relationship Specialty Start Date End Date [facility] PCP - General 06/03/171999 [place] [address] documented as of this encounter
--- OUTSIDE RECORDS SUMMARY | 2022-11-06 15:21 | XMS_ITS | Encounter Summary ---
:1965 Author Organization [place] Address [facility] [place] [address] Care Team Providers Name Role Phone Unavailable Primary Care Provider Unavailable Encounter Details Date Type Department Care Team Description 04/15/2009 Emergency room [facility] Evelio Lamar MD Hospital Results [address] [place] [address] (Wo rk) Social History Tobacco [...] She states that her pain clinic in [place] gave her new prescriptions to be [...] pain. SOCIAL HISTORY: The patient lives in [place]. Her primary care physician is Dr. Holley De La Rosa in [place], [place]. Her chronic pain doctor is Dr. Gacria at [facility] in [place]. Thepatient has had previous cervical and lumbar [...] I did speak with Dr. Torres the [place] [facility] who review her records [...] Compazine. I gave her referral information for [facility] if she has further problems while she was in [place]. She plans to be here another 1-2 weeks. DISCHARGE DIAGNOSES: 1. Acute exacerbation of chronic back pains. 2. Nausea. Electronically signed on 05/01/2009 06:49 by EVELIO LAMAR MD MT: [id number] Name: KAYLIN MOSQUERA MRN: [id number] Account: [id number] : 1965 Visit Date: 04/15/2009 Document: [id number] cc: Oc De La Rosa MD documented in this encounter Plan of Treatment Not on filedocumented as of this encounter Visit Diagnoses Not on filedocumented in this encounter
--- OUTSIDE RECORDS SUMMARY | 2022-11-06 15:21 | XMS_ITS | Encounter Summary ---
:1965 Author Organization [place] Address [address] [place] [address] Care Team Providers Name Role Phone Clinic, [facility] Primary Care Provide r Reason for Visit Reason Comments Back Pain Neck Pain Encounter Details Date Type Department Care Team Description 06/03/2017 Emergency [facility] Heggestad, Zoey Acute mi dline low back pain, with sciatica presence unspecified; [facility] Emergency Dep phuong Flowers PA-C Chronic neck pain [address] [facility] [place], [place] [address] [address] [facility] [phone] [place] [phone] (Wo rk) Social History Tobacco Use [...] that she received adequate care [facility] that she has been too. Pt reports that she left [facility] yesterday after they did not address her issues. Pt states that she would like something to take her painaway and upset that has not been receiving adequate pain control. SW explained that this appeals writer could not provide pt with pain [...] CDT Patient is not in the room. Tjeal Evans RN - 06/03/2017 3:45 PM CDT Patient is not in the room, presumed to have eloped. Tejal Evans RN - 06/03/2017 3:41 PM CDT workers compensation administrator is talking with patient per patient request. [...] pain in her sternum.She was seen at [place] and evaluated for neck pain but left [...] that she is seeing doctors at [facility] for evaluation. She reports that most of [...] 6 months ago when she ran into virocyt. She states that she called her pain management center, [facility], and that they [...] history of chronic pain who sees [facility] for her prescription [...] son tells me that they went to [place] emergency room and they told the nurse that they went to [place] emergency room as well in the past few days but nobody did anything or me. Here, the patient notes that hardware in her C-spine has loosened and she is scheduled to see [facility] physician to possibly [...] and came to talk to me. The group social worker states that the patient wanted to complain about our care to her but she had no complaints of social issues at home. workers compensation administrator referred her back to me. I was [...] I did also speak to a P.A. simulation educator for [facility], Grey [place], who [...] Region Laterality Modality Spine, SUBRAD CT MSK, [facility] CT SPINE Compu mary Tomography [...] reconstruction technique. FINDINGS: Again demonstrated are five nahmoy mbar type vertebral bodies. Vertebral body alignment [...] dose documented in this encounter Care Teams It Compliance Manager Relationship Specialty Start Date End Date Clinic, [facility] PCP - General 06/03/171999 [place] [address] documented as of this encounter
--- OUTSIDE RECORDS SUMMARY | 2022-11-06 15:21 | XMS_ITS | Encounter Summary ---
:1965 Author Organization [place] Address [facility] [place] [address] Care Team Providers Name Role Phone Clinic, [facility] Primary Care Provide r Reason for Visit Auth/Cert Specialty Diagnoses / Procedures Referred By Contact Refer red To Contact Surgery Diagnoses URGE AND STRESS INCONTINENCE,FEMALE STRESS INCONTINENCE Sh Periop Services Procedures CYSTOSCOPY, SLING TRANSVAGINAL [address], [address] [place] [address] Phone: Referral ID Status Reason Start Date Expiration Date Visits Requ ested Visits Authorized [id number] 1 1 Encounter Details Date Type Department Care Team Description 10/14/2017 Surgery [facility] [place], CYSTOSCOPY ,TVT SLING [place] PeriOP Ser ashwin Rodrigez MD [address] [facility] UROLOGY [address] [place] [address] [facility] [phone] [place] [address] (Wo rk) Surgery Details Date/Time Status Location OR Service Patient Case Class Case Tr auma Class Type Case? 10/14/17 1:00 Posted OR OR [facility] Urology Same Day PM Surgery [...] Comments Blood Pressure 93/59 10/14/2017 2:15 PM REPAIRER HAIRSPRING Pulse - - Temperature 35.7 ??C (96.3 ??F) 10/14/2017 1:31 PM REPAIRER HAIRSPRING Respiratory Rate 14 10/14/2017 2:15 PM REPAIRER HAIRSPRING Oxygen Saturation 93% 10/14/2017 2:15 PM REPAIRER HAIRSPRING Inhaled Oxygen Concentration - - Weight 73.9 kg (163 lb) 10/14/2017 12:15 PM REPAIRER HAIRSPRING Height 152.4 cm (5') 10/14/2017 12:15 PM REPAIRER HAIRSPRING Body Mass Index 31.83 10/14/2017 12:15 PM REPAIRER HAIRSPRING documented in this encounter Discharge Instructions Discharge InstructionsGi King RN - 10/14/2017 1:42 PM REPAIRER HAIRSPRING Post Bladder Sling Instructions Dr Stafford [phone] ?? For pain you may take a narcotic/acetaminophen combination prescription for pain relief. The mostcommon pain is in the upper thighs. This usually lasts 2-3 days. You may use cold packs to this areaas needed to reduce pain and bruising. Generally bjtq-euk-gselprm medicines such as ibuprofen, 3-4 tablets every [...] vaginal sutures. ?? Post op appointments: Call [phone] to schedule an appointment to see your [...] know so they can address your concerns. IRER HAIRSPRING documented in this encounter Medications at Time [...] needed for muscle spasms naloxone (NARCAN) nasal [place] 4 mg into one 0 spray nostril [...] (Takes 2 x 5000 unit tablet = 13086 unit dose) ZONISAMIDE PO Take 300 mg [...] was given a new prescription for [place]. Prescription for Oxycodone shredded. Patient took hard copy of new [place] prescription with her.; IRER HAIRSPRING Vicki Matthews RN - 10/14/2017 3:39 PM CST Patient voided, bladder scan 450cc, encouraged patient to void again. Pt voided. Bladder scan for 100-150cc. Patient comfortable and ready to go home. IRER HAIRSPRING documented in this encounter Miscellaneous Notes Op [...] also underwent sling placement in [facility] and on exam I was able to [...] and draped in the regular fashion. A 16-Greek [place] catheter was placed. Periurethral space was [...] MD MT: #[id number] Name: ANGIE MOSQUERA Account: [id number] : 1965 Procedure Date: 10/14/2017 Document: [id number] cc: Rain Stafford MD IRER HAIRSPRING documented in this encounter Plan of Treatment Not on filedocumented as of this encounter Procedures Procedure Name Priority Date/Time Associated Diagnosis Comme nts CREATION, VAGINAL 10/14/2017 12:46 PM URGE AND STRESS SLING, WITH CYSTOSCOPY REPAIRER HAIRSPRING INCONTINENCE,FEMAL E STRESS INCONTINENCE LAB RESULT - HIM SCAN 10/11/2017 12:00 AM REPAIRER HAIRSPRING EKG CARDIAC - HIM SCAN 08/15/2017 12:00 AM CDT XRAY IMAGING - HIM 07/25/2017 12:00 AM SCAN CDT documented in this encounter Results LAB RESULT - HIM SCAN (10/11/2017 12:00 AM REPAIRER HAIRSPRING) Specimen (Source) Anatomical Location Collection Method / [...] 1:21 PM 30 mLs Operative EPINEPHrine 1:200,000 REPAIRER HAIRSPRING Sit e/Surgical Site injection PRN, Starting on Tue10/14/17 at 1321, Intra-procedure ciprofloxacin (CIPRO) infusion 400 mg Given 10/14/2017 12:59 PM REPAIRER HAIRSPRING 400 mg Routine, 400 mg, Intravenous, PRE-OP/PRE-PROCEDURE, Starting on Tue10/14/17 at 1155, For 1 dose, Irritant., Indications: Perioperative Pharmacoprophylaxis, Pre-procedure New Bag 10/14/2017 12:26 PM REPAIRER HAIRSPRING 400 mg fentaNYL (PF) (SUBLIMAZE) injection 25-5 0 mcg Given 10/14/2017 2:01 PM REPAIRER HAIRSPRING 50 mcg 25-50 mcg, Intravenous, EVERY 2 [...] 100 mcg., PACU Given 10/14/2017 1:50 PM REPAIRER HAIRSPRING 50 mcg HYDROmorphone (PF) (DILAUDID) injection Given 10/14/2017 2:42 PM REPAIRER HAIRSPRING 0.5 mg 0.3-0.5 mg 0.3-0.5 mg, Intravenous, [...] minutes., PACU/Phase II Given 10/14/2017 2:18 PM REPAIRER HAIRSPRING 0.5 mg ondansetron (ZOFRAN) injection 4 mg Given 10/14/2017 2:18 PM REPAIRER HAIRSPRING 4 mg 4 mg, Intravenous, EVERY 30 [...] tablet 5 mg Given 10/14/2017 2:54 PM REPAIRER HAIRSPRING 5 mg 5 mg, Oral, ONCE, On Tue10/14/17 at 1500, For 1 dose, PACU scopolamine (TRANSDERM) 72 hr Given 10/14/2017 12:43 PM REPAIRER HAIRSPRING 1 pa tch Behind Left Ear patch 1 patch 1 patch, Transdermal, EVERY 72 HOURS, First dose on Tue10/14/17 at 1245, Apply patch to skin, behind ear. Remove every 72 hours. Each 1.5 mg patch delivers 1 mg of scopolamine., Pre-procedure skin closure adhesive Given 10/14/2017 1:19 PM 1 applicator Operative (DERMABOND) vial REPAIRER HAIRSPRING Site/Surgical S ite PRN, Starting on Tue10/14/17 at 1319, Intra-procedure sodium chloride 0.9% Given 10/14/2017 1:09 PM 1,000 mLs Operative (bottle) irrigation REPAIRER HAIRSPRING Site/Surgical S ite PRN, Starting on Tue10/14/17 at 1309, Intra-procedure sterile water irrigation Given 10/14/2017 1:08 PM 3,000 mLs Operative (bag) REPAIRER HAIRSPRING Site/Surgical S ite PRN, Intra-procedure, Starting on Tue10/14/17 at 1308, Until Tue10/14/17 at 1544 documented in this encounter Active and Recently Administered Medications Times are shown in REPAIRER HAIRSPRING. Scheduled Medication Order 10/12/2017 10/13/2017 10/14/2017 ciprofloxacin (CIPRO) infusion 400 mg (COMPLETED) 1226 (New Bag - Provider: Rona Hanks RN)1259 (Given - Provider: Gayatri Combs APRN PLANT CYTOLOGIST) Routine, 400 mg, Intravenous, PRE-OP/PRE -PROCEDURE, Starting [...] RN) 0.3-0.5 mg, Intravenous, EVERY 10 MIN MI N, other, acute pain.?May administer if Respiratory [...] 1544 documented in this encounter Care Teams Curator Of Photography And Prints Relationship Specialty Start Date End Date Clinic, [facility] PCP - General 06/03/171999 [place] [id number] documented as of this encounter
--- OUTSIDE RECORDS SUMMARY | 2022-11-06 15:21 | XMS_ITS | Encounter Summary ---
:1965 Author Organization [place] Address [facility] [place] [address] Care Team Providers Name Role Phone Unavailable Primary Care Provider Unavailable Encounter Details Date Type Department Care Team Description 04/15/[address] [facility] Evelio Munoz MD Hospital Results [address] [place] [address] (Wo rk) Social History Tobacco [...]
--- OUTSIDE RECORDS SUMMARY | 2022-11-06 15:21 | XMS_ITS | Encounter Summary ---
:1965 Author Organization [place] Address [address] [place] [address] Care Team Providers Name Role Phone [facility] Primary Care Provide r Mor Bautista MD [...] on filedocumented in this encounter Care Teams Roller Leveler Operator Relationship Specialty Start Date End Date [facility] PCP - General 06/03/17 [facility] [address] [place] [address] Mor Bautista MD Assigned Infectious Disease 06/12/2106/25 Elisabeth Porter Provider [facility] [address] [place] [address] documented as of this encounter
--- OUTSIDE RECORDS SUMMARY | 2022-11-06 15:21 | XMS_ITS | Encounter Summary ---
:1965 Author Organization [place] Address [address] [place] [address] Care Team Providers Name Role Phone Unavailable Primary Care Provider Unavailable Encounter Details Date Type Department Care Team Description 04/15/2009 Historic Results INTERFACED REPORT Kai Munoz MD [address] [facility] [address] [place] [address] (Wo rk) Social History Tobacco [...]
--- OUTSIDE RECORDS SUMMARY | 2022-11-06 15:21 | XMS_ITS | Encounter Summary ---
:1965 Author Organization [place] Address [facility] [place] [address] Care Team Providers Name Role Phone Unavailable Primary Care Provider Unavailable Encounter Details Date Type Department Care Team Description 07/29/2011 Emergency room [facility] EMERGENCY NURY CISNEROS Results [address] [place], [place] [address] Social History Tobacco Use Types Packs/Day Years Used Date Smoking Tobacco: Never Assessed Sex Assigned at Date Recorded Not on file documented as of this encounter Progress Notes Interface, Blood Bank Custodian - 07/31/2011 10:23 AM CDT FINAL Chief [...] she recently came to the area from [place] to visit her father (approximately two weeks [...] with a friend. The patient resides in [place], and is here in the [facility] area visiting her father. The patient states that she has been smoking one pack of cigarettes per day since 1973. Her primary care physician is Dr. Holley De La Rosa in [place], [place]. \n Her chronic pain doctor is Dr. Garcia at [facility] in [place]. - Is negative for Illicit drug use, [...] MT: JOSÉ MIGUEL Name: KAYLIN MOSQUERA Account: [id number] : 1965 Visit Date: 07/29/2011 Document: [id number] documented in this encounter Plan of Treatment Not on filedocumented as of this encounter Visit Diagnoses Not on filedocumented in this encounter
--- OUTSIDE RECORDS SUMMARY | 2022-11-06 15:21 | XMS_ITS | Encounter Summary ---
:1965 Author Organization [place] Address [address] [place] [address] Care Team Providers Name Role Phone [facility], [facility] Primary Care Provide r Encounter Details Date Type Department Care Team Description 03/26/2021 [facility] CONVERSION ProviderAlea Social History Tobacco [...] on filedocumented in this encounter Care Teams Petroleum Refinery Laborer Relationship Specialty Start Date End Date [facility] PCP - General 06/03/171999 [place] [address] documented as of this encounter
--- OUTSIDE RECORDS SUMMARY | 2022-11-06 15:21 | XMS_ITS | Encounter Summary ---
:1965 Author Organization [place] Address [address] [place] [address] Care Team Providers Name Role Phone [facility], [facility] Primary Care Provide r Encounter Details Date Type Department Care Team Description [facility] ProviderAlea Social History [...] on filedocumented in this encounter Care Teams Household Appliance Mechanic Relationship Specialty Start Date End Date [facility] PCP - General 06/03/171999 [place] [address] documented as of this encounter
--- OUTSIDE RECORDS SUMMARY | 2022-11-06 15:21 | XMS_ITS | Encounter Summary ---
:1965 Author Organization [place] Address [address] [place] [address] Care Team Providers Name Role Phone [facility] Primary Care Provide r Encounter Details Date [...] on filedocumented in this encounter Care Teams Hot Stick Man Relationship Specialty Start Date End Date [facility] PCP - General 06/03/171999 [place] [address] documented as of this encounter
--- OUTSIDE RECORDS SUMMARY | 2022-11-06 15:21 | XMS_ITS | Encounter Summary ---
:1965 Author Organization [place] Address [facility] [place] [address] Care Team Providers Name Role Phone Clinic, [facility] Primary Care Provide r Reason for Visit Auth/Cert Specialty Diagnoses / Procedures Referred By Contact Refer red To Contact Surgery Diagnoses URGE AND STRESS INCONTINENCE,FEMALE STRESS INCONTINENCE Sh Periop Services Procedures CYSTOSCOPY, SLING TRANSVAGINAL [address] [place] [address] Phone: Referral ID Status Reason Start Date Expiration Date Visits Requ ested Visits Authorized [id number] 1 1 Encounter Details Date Type Department Care Team Description 10/14/2017 Hospital Encounter [facility] Tesfaye, Mary Ann ss incontinence Shayne Rodrigez MD (Primary Dx) PreOP/Phase II [place] [address]Y [address] [facility] [address] [place] [address] [phone] Social History Tobacco Use Types Packs/Day Years Used Date Smoking Tobacco: Every Day Cigarettes 0.5 Smokeless Tobacco: Never Alcohol Use Standard Drinks/Week Comments No 0 (1 standard drink = 0.6 oz pure alcoho l) Sex Assigned at Date Recorded Not on file documented as of this encounter Last Filed Vital Signs Vital Sign Reading Time Taken Comments Blood Pressure 121/86 10/14/2017 4:28 PM ASSISTANT NURSE MANAGER Pulse - - Temperature 36.6 ??C (97.8 ??F) 10/14/2017 3:00 PM ASSISTANT NURSE MANAGER Respiratory Rate 16 10/14/2017 4:28 PM ASSISTANT NURSE MANAGER Oxygen Saturation 98% 10/14/2017 4:28 PM ASSISTANT NURSE MANAGER Inhaled Oxygen Concentration - - Weight 73.9 kg (163 lb) 10/14/2017 12:15 PM ASSISTANT NURSE MANAGER Height 152.4 cm (5') 10/14/2017 12:15 PM ASSISTANT NURSE MANAGER Body Mass Index 31.83 10/14/2017 12:15 PM ASSISTANT NURSE MANAGER documented in this encounter Discharge Instructions Discharge InstructionsGi King RN - 10/14/2017 1:42 PM ASSISTANT NURSE MANAGER Post Bladder Sling Instructions Dr Stafford [phone] ?? For pain you may take a narcotic/acetaminophen combination prescription for pain relief. The mostcommon pain is in the upper thighs. This usually lasts 2-3 days. You may use cold packs to this areaas needed to reduce pain and bruising. Generally yfud-lxa-tjloxsp medicines such as ibuprofen, 3-4 tablets every [...] vaginal sutures. ?? Post op appointments: Call [phone] to schedule an appointment to see your [...] know so they can address your concerns. STANT NURSE MANAGER documented in this encounter Medications at [...] needed for muscle spasms naloxone (NARCAN) nasal [place] 4 mg into one 0 spray nostril [...] (Takes 2 x 5000 unit tablet = 65612 unit dose) ZONISAMIDE PO Take 300 mg [...] and was given a new prescription for [place]. Prescription for Oxycodone shredded. Patient took hard copy of new [place] prescription with her.; STANT NURSE MANAGER Vicki Matthews RN - 10/14/2017 3:39 PM CST Patient voided, bladder scan 450cc, encouraged patient to void again. Pt voided. Bladder scan for 100-150cc. Patient comfortable and ready to go home. STANT NURSE MANAGER documented in this encounter Miscellaneous Notes [...] note, she also underwent sling placement in [facility] and on exam I was [...] and draped in the regular fashion. A 16-Armenian [place] catheter was placed. Periurethral space was [...] EM#[id number] Name: ANGIE MOSQUERA MRN: [id number] Account: [id number] : 1965 Procedure Date: 10/14/2017 Document: [id number] cc: Rain Stafford MD STANT NURSE MANAGER documented in this encounter Plan of Treatment Not on filedocumented as of this encounter Procedures Procedure Name Priority Date/Time Associated Diagnosis Comme nts CREATION, VAGINAL 10/14/2017 12:46 PM URGE AND STRESS SLING, WITH CYSTOSCOPY ASSISTANT NURSE MANAGER INCONTINENCE,FEMAL E STRESS INCONTINENCE LAB RESULT - HIM SCAN 10/11/2017 12:00 AM ASSISTANT NURSE MANAGER EKG CARDIAC - HIM SCAN 08/15/2017 12:00 AM CDT XRAY IMAGING - HIM 07/25/2017 12:00 AM SCAN CDT documented in this encounter Results LAB RESULT - HIM SCAN (10/11/2017 12:00 AM ASSISTANT NURSE MANAGER) Specimen (Source) Anatomical Location Collection Method [...] ciprofloxacin (CIPRO) infusion Given 10/14/2017 12:59 PM ASSISTANT NURSE MANAGER 400 mg 400 mg Routine, 400 mg, Intravenous, PRE-OP/PRE-PROCEDURE, Starting on Tue10/14/17 at 1155, For 1 dose, Irritant., Indications: Perioperative Pharmacoprophylaxis, Pre-procedure New Bag 10/14/2017 12:26 PM ASSISTANT NURSE MANAGER 400 mg fentaNYL (PF) (SUBLIMAZE) injection 25-5 0 mcg Given 10/14/2017 2:01 PM ASSISTANT NURSE MANAGER 50 mcg 25-50 mcg, Intravenous, EVERY [...] 100 mcg., PACU Given 10/14/2017 1:50 PM ASSISTANT NURSE MANAGER 50 mcg HYDROmorphone (PF) (DILAUDID) injection Given 10/14/2017 2:42 PM ASSISTANT NURSE MANAGER 0.5 mg 0.3-0.5 mg 0.3-0.5 mg, [...] minutes., PACU/Phase II Given 10/14/2017 2:18 PM ASSISTANT NURSE MANAGER 0.5 mg ondansetron (ZOFRAN) injection 4 mg Given 10/14/2017 2:18 PM ASSISTANT NURSE MANAGER 4 mg 4 mg, Intravenous, EVERY [...] tablet 5 mg Given 10/14/2017 2:54 PM ASSISTANT NURSE MANAGER 5 mg 5 mg, Oral, ONCE, On Tue10/14/17 at 1500, For 1 dose, PACU scopolamine (TRANSDERM) 72 hr Given 10/14/2017 12:43 PM ASSISTANT NURSE MANAGER 1 pa tch Behind Left Ear patch 1 patch 1 patch, Transdermal, EVERY 72 HOURS, First dose on Tue10/14/17 at 1245, Apply patch to skin, behind ear. Remove every 72 hours. Each 1.5 mg patch delivers 1 mg of scopolamine., Pre-procedure documented in this encounter Active and Recently Administered Medications Times are shown in ASSISTANT NURSE MANAGER. Scheduled Medication Order 10/12/2017 10/13/2017 10/14/2017 ciprofloxacin (CIPRO) infusion 400 mg (COMPLETED) 1226 (New Bag - Provider: Rona Hanks RN)1259 (Given - Provider: Gayatri Combs APRN CHILD DEVELOPMENT PROFESSOR) Routine, 400 mg, Intravenous, PRE-OP/PRE -PROCEDURE, Starting [...] RN) 0.3-0.5 mg, Intravenous, EVERY 10 MIN AR [...] 1544 documented in this encounter Care Teams Mail Sorter And Delivery Relationship Specialty Start Date End Date [facility], [facility] PCP - General 06/03/171999 [place] [address] documented as of this encounter
--- OUTSIDE RECORDS SUMMARY | 2022-11-06 15:21 | XMS_ITS | Encounter Summary ---
:1965 Author Organization [place] Address [address] [place] [address] Care Team Providers Name Role Phone Amna Fletcher Primary Care Provider Reason for Visit Reason Comments Chest Wall Pain Encounter Details Date Type Department Care Team Description 07/18/2016 Emergency [facility] Radha Espana Sternal contusion, initial encounter; [facility] Emergency Dep phuong Ross MD Closed fracture of rib of right side, in itial encounter [address] [facility] [address] [address] [place] [address] (Wo rk) Social History Tobacco Use Types [...] your healthcare provider ?? Congested cough ?? [phone] [employer]. [address] [place] [address], [place] [address]. All rights reserved. This information is not intended as a substitute for professional medical care. Always follow your healthcare professional's instructions. AttachmentsThe following attachments cannot be sent through Care Everywhere.BONE BRUISE (BONE CONTUSION), UNDERSTANDING (POLISH)documented in this encounter Medications at Time of [...] until more awake. No other orders given Rdaha Espana MD - 07/18/2016 12:56 AM CDT [...] surgery Bilateral knee arthroplasty Gastric bypass Cholecystectomy Registered Diet Technician surgery Family History: History reviewed. No pertinent [...] Department Course ECG (01:17:19): Rate 69 bpm. SD interval 176. QRS duration 94. QT/QTc 408/437. [...] hours for 10 days Adrian Vera 07/18/2016 [facility] EMERGENCY DEPARTMENT IAdrian am serving as a scribe at 1:03 AM on 07/18/2016 to document services personally performed by Radha Espana MD based on my observations and the provider's statements to me. Radha Espana MD 07/18/16 [address] Renea Conn RN - 07/18/2016 12:48 AM [...] EKG 12 lead (07/18/2016 1:17 AM CDT) [facility] gist Method Time Signature Interpretation ECG [...] dose documented in this encounter Care Teams Wind Development Director Relationship Specialty Start Date End Date Amna Fletcher PCP - General 07/18/16 05/16/17 [place] [address] documented as of this encounter
--- OUTSIDE RECORDS SUMMARY | 2022-11-06 15:21 | XMS_ITS | Encounter Summary ---
:1965 Author Organization [place] Address [address] [place] [address] Care Team Providers Name Role Phone [facility], [facility] Primary Care Provide r Encounter Details Date Type Department Care Team Description 05/20/2021 Records - [facility] Provider, [facility] [address] [facility] [address] [place] [address] Social History Tobacco Use Types Packs/Day Years [...] athologist Signature Creatinine 0.60 0.50 - 1.50 [facility] mg/dL [facility] Specimen (Source) Anatomical Location Collection Method / Collectio n Time Received Time / Laterality Volume Blood specimen 04/20/2021 (specimen) Narrative 04/20/2021 [facility] EXTERNAL RESULT Historical Provider LAB - BLOOD ORDERABLES Performing Organization Address City/State/ZIP Code Phon e Number [facility] [address] [place] [address] documented in this encounter Visit Diagnoses Not on filedocumented in this encounter Care Teams Snack Stewardess Relationship Specialty Start Date End Date Clinic, [facility] PCP - General 06/03/171999 [place] [address] documented as of this encounter
--- OUTSIDE RECORDS SUMMARY | 2022-11-06 15:21 | XMS_ITS | Encounter Summary ---
:1965 Author Organization [place] Address [address] [place] [address] Care Team Providers Name Role Phone Clinic, [facility] Primary Care Provider [phone] Reason for Visit Reason Comments Fall Encounter Details Date Type Department Care Team Description 05/17/2017 [facility] Acute [facility]; [facility] Emergency Dep t EMERGENCY PHYSICIANS Shoulder strain, unspecified laterality, initial encounter [address] [place], [place] [address] [place] [address] [place] [address] [place], [place] [address] (Wo rk) Social History Tobacco Use Types [...] contain Tylenol?? (acetaminophen), including Vicodin??, Tylenol #3??, [place]??, Lortab??, and Percocet??. You should not take [...] contain Tylenol?? (acetaminophen), including Vicodin??, Tylenol #3??, [place]??, Lortab??, and Percocet??. You should not take [...] neck fusion Reports taking tylenol 2 hrs GROUP TESTER Jose Guadalupe Betancourt MD - 05/17/2017 7:20 [...] Surgical History: Abdomen surgery Back surgery Cholecystectomy SPECIAL EDUCATION ADMINISTRATOR surgery Orthopedic Surgery Family History: History reviewed. [...] I spoke with Dr. Davis of the [facility] regarding patient's presentation, findings, [...] and the provider's statements to me. 05/17/2017 [facility] EMERGENCY DEPARTMENT Jose Guadalupe Betancourt MD [...] grams documented in this encounter Care Teams Medical Record Coder Relationship Specialty Start Date End Date [facility], [facility] PCP - General 05/17/17 06/02/[address] [place] [address] documented as of this encounter
--- OUTSIDE RECORDS SUMMARY | 2022-11-06 15:21 | XMS_ITS | Encounter Summary ---
:1965 Author Organization [place] Address [address] [place] [address] Care Team Providers Name Role Phone [facility] Primary Care Provide r Encounter Details [...] on filedocumented in this encounter Care Teams Butcher Fish Relationship Specialty Start Date End Date [facility] PCP - General 06/03/171999 [place] [address] documented as of this encounter
--- OUTSIDE RECORDS SUMMARY | 2022-11-06 15:21 | XMS_ITS | Encounter Summary ---
:1965 Author Organization [place] Address [address] [place] [address] Care Team Providers Name Role Phone Unavailable Primary Care Provider Unavailable Reason for Visit Reason Onset Date Comments Previsit 12/11/2014 12/19/[address] Juice mackenzie Encounter Details Date Type Department Care Team Description 12/11/2014 PRE VISIT [facility] Amie, Kwan t (12/19/14 [facility] Shauna Alejo MD with Dr Humphrey) [facility] [place] [address] [place], [place] [phone] (Wo rk) Social History Tobacco Use Types Packs/Day Years Used Date Smoking Tobacco: Never Assessed Sex Assigned at Date Recorded Not on file documented as of this encounter Plan of Treatment Not on filedocumented as of this encounter Visit Diagnoses Not on filedocumented in this encounter
--- OUTSIDE RECORDS SUMMARY | 2022-11-06 15:22 | XMS_ITS | Encounter Summary ---
:1965 [facility] Address [address] [place] [address] Care Team Providers Name Role Phone Jose Holden MD Primary Care Provider [phone] Reason for Visit Reason Comments Surgery Questions Encounter Details Date Type Department Care Team Description 10/22/2022 Telephone TRIA Donald Millard MD Surgery Questions Orthopaedics & Sports [address] [facility] [address] [address] [place] [phone] (Wo rk) Social History Tobacco Use Types Packs/Day Years Used Date Smoking Tobacco: Every Day Cigarettes 0.5 30 Smokeless Tobacco: Never Comments: 30 year smoker on and off, 0.5 a day Alcohol Use Standard Drinks/Week Comments No 0 (1 standard drink = 0.6 oz pure alcoho l) Sex Assigned at Date Recorded Not on file documented as of this encounter Nursing Notes Elva Bradshaw - 10/22/2022 3:06 PM CST I spoke with Angie, confirmed her dos and location. Thank you CD Marianne Das - 10/22/2022 9:44 AM CST Has the patient recently had surgery or an injury? No How may we help you today? Patient calling stating she is schedule to have surgery with Dr. Donald Medley and she had got a call on a date and location from the AA but she doesn't remember the information that was given to her. Please advise Describe your symptoms/concerns: na When did the issue start: na Have you been seen for this recently?: na [Curriculum Manager/Appt Center: If yes, please include date and provider.] Is it okay to leave detailed message on your voicemail? YES [Curriculum Manager/Appt Center: If this call is after 3 p.m., communicate to patient: If we are not able to get back to you by the end of the day and your symptoms worsen please contact the Careline] LACTATION documented in this encounter Plan of Treatment Upcoming Encounters Date Type Specialty Care Team Description 12/02/2022 Appointment OrthopedicDonald Thomas MD [address] [facility] [address] [place] [phone] (Wo rk) 12/31/2022 Appointment OrthopedicDonald Thomas MD [address] [facility] [address] [place] [phone] (Wo rk) documented as of this encounter Visit Diagnoses Not on filedocumented in this encounter Care Teams Wind Technician Relationship Specialty Start Date End Date Jose Holden MD PCP - General Otolaryngology 12/14/17 [facility] JANESSA HAYS [place], [place] [phone] documented as of this encounter
--- OUTSIDE RECORDS SUMMARY | 2022-11-06 15:22 | XMS_ITS | Encounter Summary ---
:1965 [facility] Address [address], [place] [address] Care Team Providers Name Role Phone Jose Holden MD Primary Care Provider [phone] Reason for Referral Procedure/Equipment (Routine) - Closed Specialty Diagnoses / Procedures Referred By Contact Refer red To Contact Diagnoses Intractable acute post-traumatic headache Blanka Mead APRN, CN P [address] [place] [address] Referral ID Status Reason Start Date Expiration Date Visits Requ ested Visits Authorized [id number] Closed 02/16/2019 05/17/2020 1 1 Scheduling Instructions . herapies (Routine) - Closed Specialty Diagnoses / Procedures Referred By Contact Refer red To Contact Diagnoses Impairment of balance Dizziness Blanka Mead APRN, CN P [address] [place] [address] Referral ID Status Reason Start Date Expiration Date Visits Requ ested Visits Authorized [id number] Closed 02/16/2019 04/17/2019 1 1 Scheduling Instructions Your provider has recommended an appoint ment with a [facility] Physical Therapist. Please stop at the clinic check out desk for assistance with scheduling or if you prefer to call for your appointment you may call [facility] Outpatient Rehabilitation at [phone]. We suggest you call your [employer] insurance company about your coverage and benefits for this appointment. Reason for Visit Reason Comments Consult, New Patient Consult/Transfer Care (Routine) - Closed Specialty Diagnoses / Procedures Referred By Contact Refer red To Contact Diagnoses Traumatic brain injury, without loss of consciousness, initial encounter (HRC) Tony Pittman MD [address] [place] [address] Referral ID Status Reason Start Date Expiration Date Visits Requ ested Visits Authorized [id number] Closed 12/26/2018 03/26/2020 1 1 Encounter Details Date Type Department Care Team Description 02/16/2019 Office Visit [facility] Mead, Impairment of balance (Primary Dx); Neuroscience Center Blanka zaldivar; Physical Medicine NIKKY Chavez, Intractable acute post-traum atic headache [address] [place]IOR [place] [address] 295 [facility] [phone] [place] [address] Social History Tobacco Use Types [...] Body Mass Index 33.01 12/26/2018 1:48 PM LEVEL VIAL GRINDER documented in this encounter Patient Instructions Patient InstructionsBlanka Mead APRN, CNP - 02/16/2019 2:20 PM [...] If you need to reschedule, please call [phone] as soon as you know you will not be able to make the appointment. If you have any questions or concerns, please call the clinic at [phone]. ?? If tests are needed, you will [...] treatment plan is please contact us at [phone] or send us a secure message via WeGame. If you need follow-up in the future, please call [phone] for an appointment. If you cannot get a time that satisfies you, please let us know what times work for you and we will do our best to accommodate you. Thank you for choosing Blanka Mead APRN, CNP and [facility] Physical Medicine and Rehabilitation. documented [...] Health Services. According to the note from [facility]: the patient fell approximately 20 hours before being seenon 11/10/2018 with a presentation of headache neck pain left shoulder pain left knee pain left hip pain out of proportion to the mechanism of injury. The patient's a 53-year-old female well-known to [facility] with multiple comorbid medical and [...] sees Dr. Bullard with neurosurgery at [facility]. She has a past medical history of [...] anterior cervical fusion 2017 Dr. Ihsan Brooke, [facility] Family History: Family History Problem Relation [...] ??? medical cannabis patient certified Take 1 [place] by mouth . ??? naloxone (NARCAN) 4 [...] EXAM: XR CERVICAL SPINE AP/LAT UPRIGHT LOCATION: [facility] DATE/TIME: 12/26/2018 1:44 PM ?? INDICATION: [...] able to review her head CT from [facility] as well as her cervical spine CT. Findings obtained by [facility] on 11/10/2018 showed CSF spaces within normal [...] and coordination of care. Blanka Mead APRN, CNP 02/16/2019 Physical Medicine and Rehabilitation documented in this encounter Plan of Treatment Upcoming Encounters Date Type Specialty Care Team Description 12/02/2022 Appoint[place] [address] [place] [address] [address] [place] [phone] (Babatunde billings) 12/31/2022 Appointment Orthopedics Donald Medley MD [address] [facility] [address] [place], [place] [phone] (Babatunde billings) Scheduled Referrals Name Type Priority Associated Diagnoses Order S chedule Physical Therapy Referral Routine Impairment of b alance Ordered: 02/16/2019 Dizziness Acupuncture Referral Routine Intractable acute Ordered: 0 02/16/2019 post-traumatic headache documented as of this encounter Visit Diagnoses Diagnosis Impairment of balance - Primary Dizziness Dizziness and giddiness Intractable acute post-traumatic headach e Acute post-traumatic headache documented in this encounter Care Teams Supervisor Jewelry Department Relationship Specialty Start Date End Date Jose Holden MD PCP - General Otolaryngology 12/14/17 [address] [place] [address] documented as of this encounter
--- OUTSIDE RECORDS SUMMARY | 2022-11-06 15:22 | XMS_ITS | Encounter Summary ---
:1965 Author [facility] Address [address] [place] [address] Care Team Providers Name Role Phone Jose Holden MD Primary Care Provider [phone] Reason for Visit Procedure/Equipment (Routine) - Incomplete Specialty Diagnoses / Procedures Referred By Contact Refer red To Contact Diagnoses Pain due to total right knee replacement, initial encounter (HRC) Donald Medley MD Procedures CT Knee Rt WO IV Cont [facility] [facility] [address] [place] [address] Referral ID Status Reason Start Date Expiration Date Visits V isits Requested Authorized [id number] Incomplete 10/07/2022 01/06/2024 1 1 Encounter Details Date Type Department Care Team Description 10/13/2022 Ancillary Procedure Donald Mock Pain due to total [place] [address] [address] Arce MD right knee Scan 16[address] [facility] replacement, [place] [address] [facility] [address] [place] [phone] Social History Tobacco Use Types Packs/Day Years [...] Description 12/02/2022 Appointment Orthopedics Donald Medley MD [address] [facility] [address] [place] [phone] (Wo rk) 12/31/2022 Appointment Orthopedics Donald Medley MD [address] [facility] [address] [place] [phone] (Wo rk) documented as of this encounter Procedures Procedure Name Priority Date/Time Associated Diagnosis Comme nts CT KNEE RT WO IV Routine 10/13/2022 11:28 AM Pain due to total Results for this CONT RUBBER COMPOUNDER MIXER right knee procedure are i n replacement, initial the res ults encounter (HRC) section. documented in this encounter Results CT Knee Rt WO IV Cont (10/13/2022 11:28 AM RUBBER COMPOUNDER MIXER) Anatomical Region Laterality Modality Lower Extremity, Knee, Leg, Skeletal, Thigh Computed Tomography Specimen (Source) Anatomical Collection Method Collection Time Re ceived Time Location / / Volume Laterality 10/13/2022 11:16 AM RUBBER COMPOUNDER MIXER Impressions 10/13/2022 11:52 AM RUBBER COMPOUNDER MIXER COMPARISON: None TECHNIQUE: Axial CT images through the r ight knee performed without contrast with multiplanar reconstructions obtained. FINDINGS: The angle between the surgical epicondylar axis and the posterior condylar line measures approximately 0.8 degrees of external rotation of the femoral component. ??The normal reference standar d for females is 0.3 degrees (+/- 1.2 de grees) of internal rotation. Next, the angle of the tibial tubercle i n relation to the AP axis of the tibial component was measured to determine degree of rotation of the tibial component. ??This measured approximately 25 degrees o f internal rotation of the tibial compon ent in relation to the tibial tubercle. ??Normal reference standard is 18 degrees (+/- 2.6 degrees) of internal rotation of the tibial component in relation to the axis of the tibial tubercle. ?? No imaging evidence of loosening. No fra cture. Moderate joint effusion. IMPRESSION: 1. 0.8 degrees of external rotation of t he femoral component. This is within normal limits. The normal reference standard for females is 0.3 degrees (+/- 1.2 degrees) of internal rotation. 2. Approximately 25 degrees of internal rotation of the tibial component. This is internally rotated relative to the standard. The normal reference standard is 18 degrees (+/- 2.6 degrees) internal rotation. ?? 3. No fracture or evidence of loosening. 4. Normal reference standards obtained f wiliam Crum et naomi. ??Clinical Orthopedics and Related Research. 1997, number 356, pages 144 through 153. ?? Procedure Note Antonino Allen MD - 10/13/2022Formattin g of this note might be different from the original. IMPRESSION COMPARISON: None TECHNIQUE: Axial CT images through the r ight knee performed without contrast with multiplanar reconstructions obtained. FINDINGS: The angle between the surgical epicondylar axis and the posterior condylar line measures approximately 0.8 degrees of external rotation of the femoral component. The normal reference standard for females is 0.3 degrees (+/- 1.2 degrees) of internal rotation. Next, the angle of the tibial tubercle i n relation to the AP axis of the tibial component was measured to determine degree of rotation of the tibial component. This measured approximately 25 degrees of internal rotation of the tibial component in rela tion to the tibial tubercle. Normal reference standard is 18 degrees (+/- 2.6 degrees) of internal rotation of the tibial component in relation to the axis of the tibial tubercle. No imaging evidence of loosening. No fra cture. Moderate joint effusion. IMPRESSION: 1. 0.8 degrees of external rotation of t he femoral component. This is within normal limits. The normal reference standard for females is 0.3 degrees (+/- 1.2 degrees) of internal rotation. 2. Approximately 25 degrees of internal rotation of the tibial component. This is internally rotated relative to the standard. The normal reference standard is 18 degrees (+/- 2.6 degrees) internal rotation. 3. No fracture or evidence of loosening. 4. Normal reference standards obtained f wiliam Crum et al. Clinical Orthopedics and Related Research. 1997, number 356, pages 144 through 153. Donald Medley MD RAD CT documented in this encounter Visit Diagnoses Diagnosis Pain due to total right knee replacement , initial encounter (HRC) documented in this encounter Care Teams Helpdesk Specialist Relationship Specialty Start Date End Date Jose Holden MD PCP - General Otolaryngology 12/14/17 [place] [address] documented as of this encounter
--- OUTSIDE RECORDS SUMMARY | 2022-11-06 15:22 | XMS_ITS | Encounter Summary ---
:1965 Author Organization [facility] Address [address] [place] [address] Care Team Providers Name Role Phone Jose Holden MD Primary Care Provider Reason for Referral Therapies (Routine) - Closed Specialty Diagnoses / Procedures Referred By Contact Refer red To Contact Diagnoses S/P cervical spinal fusion Pete Gonzalez MD [facility] [address] [place] [address] Referral ID Status Reason Start Date Expiration Date Visits Requ ested Visits Authorized [id number] Closed 12/26/2018 02/24/2019 1 1 Scheduling Instructions Your provider has recommended an appoint ment with a [facility] Physical Therapist. Please stop at the clinic check out desk for assistance with scheduling or if you prefer to call for your appointment you may call [facility] Outpatient Rehabilitation at [phone]. We suggest you call your [facility] insurance company about your coverage and benefits for this appointment. R HANGER Reason for Visit Reason Comments Revisit Encounter Details Date Type Department Care Team Description 12/26/2018 Office Visit [facility] Pete Gonzalez, S/P miguelito id spinal Neuroscience Center fusion (Primary Dx) Neurosurgery/Ortho [address] [facility] Spine [address] [place] [address] [place] [address] [phone] Social History Tobacco Use Types Packs/Day Years [...] Comments Blood Pressure 115/72 12/26/2018 1:48 PM PAPER HANGER Pulse 70 12/26/2018 1:48 PM PAPER HANGER Temperature 36.5 ??C (97.7 ??F) 12/26/2018 1:48 PM PAPER HANGER Respiratory Rate - - Oxygen Saturation - - Inhaled Oxygen Concentration - - Weight 71.2 kg (157 lb) 12/26/2018 1:48 PM PAPER HANGER Height 152.4 cm (5') 12/26/2018 1:48 PM PAPER HANGER Body Mass Index 30.66 12/26/2018 1:48 PM PAPER HANGER documented in this encounter Patient Instructions Patient [...] your understanding. Please call the Neurosurgery Center [phone] with any further questions or concerns or if your symptoms worsen. Thank you for coming to see us today. We are your partner. R HANGER documented in this encounter Progress Notes Pete [...] her current physical therapy Center at [facility] and also continued pain management [...] is prone to typos and grammatical errors. R HANGER documented in this encounter Plan of Treatment Upcoming Encounters Date Type Specialty Care Team Description 12/02/2022 Appointment Orthopedics Donald Medley MD [address] [facility] [address] [place] [phone] (Babatunde blilings) 12/31/2022 Appointment Donald Goldsmith MD [address] [facility] [address] [place] [phone] (Babatunde billings) Scheduled Referrals Name Type Priority Associated Diagnoses Order S chedule Physical Therapy Referral Routine S/P cervical spinal fusi on Ordered: 12/26/2018 documented as of this encounter Visit Diagnoses Diagnosis S/P cervical spinal fusion - Primary Arthrodesis status documented in this encounter Care Teams Small Arms Artillery Repairer Relationship Specialty Start Date End Date Jose Holden MD PCP - General Otolaryngology 12/14/17 [place] [address] documented as of this encounter
--- OUTSIDE RECORDS SUMMARY | 2022-11-06 15:22 | XMS_ITS | Encounter Summary ---
:1965 Author Organization [facility] Address [address], [place] [address] Care Team Providers Name Role Phone Jose Holden MD Primary Care Provider [phone] Reason for Visit Reason Comments APPOINTMENT REQUEST Encounter Details Date Type Department Care Team Description 11/13/2018 Telephone [facility] Pete oGnzalez MD APPOINTMENT REQUEST Neuroscience Center 39[address] [facility] Neurosurgery/Ortho [address] [place], [place] [address] [address] [place] [address] [phone] Social History Tobacco Use Types Packs/Day Years [...] Jana Marcos - 11/16/2018 3:46 PM CST Material Man spoke to the pt and helped schedule an appt with Dr. Gonzalez on 12/26/17 at 1:40PM. Pt was in agreement of date, time and location. Jana Marcos 11/16/2018, 3:46 PM PROOF DOOR MAKER Chava Simon RN - 11/16/2018 1:15 PM CST Per Sirisha Maher, FLAG SIGNALMAN: patient can follow up with Dr. Gonzalez with repeat upright cervical XRs. Rachid: please call patient and assist in scheduling her for an appointment with Dr. Gonzalez at next available with XR Chava Simon RN 11/16/2018, 1:20 PM PROOF DOOR MAKER Chava Simon RN - 11/16/2018 11:15 AM [...] Walker RN - 11/15/2018 11:21 AM CST [facility]- still have not received CD from [facility]. If patient calls back, please let her [...] plan? Chava Simon RN 11/13/2018, 9:12 AM PROOF DOOR MAKER Michael Cruz - 11/13/2018 8:23 AM CST Patient called in requesting for an appointment with Dr. Gonzalez himself only and not APPs. She states she fell on ice last week 11/09/18 and went to [facility] to be evaluated. She reports the left [...] Gonzalez to ensure everything is well as [facility] is not theones who did surgery on her and cannot compare this to before and after surgery. Material Man called [facility] and spoke with Mandy in the film room. They are not able to push imaging but they can send a CD. Address was provided for her of mail stop [id number] [place] [address] Attn: Dr. Gonzalez. She states the report will also be included in the CD. She then transferred me to Medical Records. Material Man spoke with Shauna who states patient will need to sign an CODI to obtain ED note from 11/09/18 to be sent to us as they are not affiliated with [employer] system. Material Man reached patient and relayed she would need [...] being sent. Michael Cruz 11/13/2018, 8:43 AM PROOF DOOR MAKER documented in this encounter Plan of Treatment Upcoming Encounters Date Type Specialty Care Team Description 12/02/2022 Appointment Orthopedics Donald Medley MD 16[address] [facility] [address] [place] [phone] (Wo rk) 12/31/2022 Appointment Orthopedics Donald Medley MD [address] [facility] [address] [place] [phone] (Wo rk) documented as of this encounter Visit Diagnoses Diagnosis S/P cervical spinal fusion - Primary Arthrodesis status documented in this encounter Care Teams Dtp Operator Relationship Specialty Start Date End Date Jose Holden MD PCP - General Otolaryngology 12/14/17 [place] [address] documented as of this encounter
--- OUTSIDE RECORDS SUMMARY | 2022-11-06 15:22 | XMS_ITS | Encounter Summary ---
:1965 Author Organization [facility] Address [address] [address] Care Team Providers Name Role Phone Jose Holden MD Primary Care Provider [phone] Encounter Details Date Type Department Care Team Description 04/09/2019 Notes/Orders [facility] Neuroscience Jose Carias, [place] Plywood Scarfer Tender apy PT [address] [place] [address] [place] [address] [phone] (Wo rk) Social History Tobacco Use Types Packs/Day Years Used Date Smoking Tobacco: Every Day Cigarettes 0.5 30 Smokeless Tobacco: Never Comments: 30 year smoker on and off, 0.5 a day Alcohol Use Standard Drinks/Week Comments No 0 (1 standard drink = 0.6 oz pure alcoho l) Sex Assigned at Date Recorded Not on file documented as of this encounter Progress Notes Alyse Carias PT - 04/09/2019 3:19 PM CDT PHYSICAL THERAPY DISCHARGE NOTE Angie Mosquera [phone] Payor: MEDICARE / Plan: MEDICARE / Product [...] 12/02/2022 Appointment Orthopedics Donald Medley MD [address] [facility] [address] [place] [phone] (Wo rk) 12/31/2022 Appointment Orthopedics Donald Medley MD [address] [facility] [address] [place] [phone] (Wo rk) documented as of this encounter Visit Diagnoses Not on filedocumented in this encounter Care Teams Hospital Coder Relationship Specialty Start Date End Date Jose Holden MD PCP - General Otolaryngology 12/14/17 [address] [place], [place] [id number] documented as of this encounter
--- OUTSIDE RECORDS SUMMARY | 2022-11-06 15:22 | XMS_ITS | Encounter Summary ---
:1965 Author Organization [facility] Address [address], [place] [address] Care Team Providers Name Role Phone Jose Holden MD Primary Care Provider [phone] Reason for Referral Procedure/Equipment (Routine) - Incomplete Specialty Diagnoses / Procedures Referred By Contact Refer red To Contact Diagnoses Pain due to total right knee replacement, initial encounter (HRC) Donald Medley MD Procedures CT Knee Rt WO IV Cont [facility] [facility] [address] [place] [address] Referral ID Status Reason Start Date Expiration Date Visits V isits Requested Authorized [id number] Incomplete 10/07/2022 01/06/2024 1 1 MATCHER Reason for Visit Reason Comments KNEE PAIN Encounter Details Date Type Department Care Team Description 10/07/2022 Office Visit Donald Esteves, Pain du e to total Orthopaedics & Sports right knee Medicine 16[address] [facility] replacement, initial [address] [facility] [address] encounter (HRC) [place], [place] (Primary Dx) [phone] Social History Tobacco Use Types Packs/Day Years [...] 12/02/2022 Appointment Orthopedics Donald Medley MD [address] [facility] [address] [place] [phone] (Wo rk) 12/31/2022 Appointment Orthopedics Donald Medley MD [facility] [facility] [address] [place] [phone] (Wo rk) documented as of this encounter Results CT Knee Rt WO IV Cont (10/13/2022 11:28 AM END MATCHER) Anatomical Region Laterality Modality Lower Extremity, Knee, Leg, Skeletal, Thigh Computed Tomography Specimen (Source) Anatomical Collection Method Collection Time Re ceived Time Location / / Volume Laterality 10/13/2022 11:16 AM END MATCHER Impressions 10/13/2022 11:52 AM END MATCHER COMPARISON: None TECHNIQUE: Axial CT images through [...] standards obtained f wiliam Crum et al. ??Clinical Orthopedics and Related Research. 1997, number [...] loosening. 4. Normal reference standards obtained f rom Sharifa Crum et al. Clinical Orthopedics and Related Research. 1997, number 356, pages 144 through 153. Donald Medley MD RAD CT documented in this encounter Visit Diagnoses Diagnosis Pain due to total right knee replacement , initial encounter (HRC) - Primary Pain due to total right knee replacement , initial encounter (HRC) documented in this encounter Care Teams Social Science Instructor Relationship Specialty Start Date End Date Jose Holden MD PCP - General Otolaryngology 12/14/17 [address] [place] [address] documented as of this encounter
--- OUTSIDE RECORDS SUMMARY | 2022-11-06 15:22 | XMS_ITS | Encounter Summary ---
:1965 Author Organization [facility] Address [address] [place] [address] Care Team Providers Name Role Phone Jose Holden MD Primary Care Provider [phone] Encounter Details Date Type Department Care Team Description 03/06[facility]/Treat Neuroscience Center Tony Alvarado MD [facility] [address] TREATMENT [address] [place] [phone] Social History Tobacco Use Types Packs/Day Years [...] 12/02/2022 Appointment Orthopedics Donald Medley MD 1601 [facility] [address] [place], [place] [phone] (Wo rk) 12/31/2022 Appointment Orthopedics Donald Medley MD 1601 [facility] [address] [place], [place] [phone] (Wo rk) documented as of this encounter Visit Diagnoses Not on filedocumented in this encounter Care Teams Aoc Operations Intelligence Officer Relationship Specialty Start Date End Date Jose Holden MD PCP - General Otolaryngology 12/14/17 [address] [address] documented as of this encounter
--- OUTSIDE RECORDS SUMMARY | 2022-11-06 15:22 | XMS_ITS | Encounter Summary ---
:1965 Author Organization [facility] Address [address] [address] Care Team Providers Name Role Phone Jose Holden MD Primary Care Provider [phone] Reason for Visit Procedure/Equipment (Routine) - Incomplete Specialty Diagnoses / Procedures Referred By Contact Refer red To Contact Diagnoses S/P cervical spinal fusion Sirisha Rankin, Procedures XR Cervical Spine AP/Lat Upright CONCRETE SMOOTHER, PHYSICIST CRYOGENICS [address] [place] [address] Referral ID Status Reason Start Date Expiration Date Visits V isits Requested Authorized [id number] Incomplete 10/10/2018 01/09/2020 1 1 Encounter Details Date Type Department Care Team Description 12/26/2018 [facility]illary [facility] Sneha Maher, S/P cervi france Procedure [facility] Sirisha Celaya, CONCRETE SMOOTHER, spinal fusion Radiology PHYSICIST CRYOGENICS [address] [place] [address] [place], [place] [phone] [address] Social History Tobacco Use Types Packs/Day Years [...] 12/02/2022 Appointment Orthopedics Donald Medley MD [address] [facility] [address] [phone] (Wo rk) 12/31/2022 Appointment Orthopedics Donald Medley MD [address] [phone] (Wo rk) documented as of this encounter Procedures Procedure Name Priority Date/Time Associated Diagnosis Comme nts XR CERVICAL SPINE Routine 12/26/2018 1:44 PM S/P cervical spin al Results for this AP/LAT UPRIGHT CANDY CATCHER fusion procedure are in the results section. documented in this encounter Results XR Cervical Spine AP/Lat Upright (12/26/2018 1:44 PM CANDY CATCHER) Anatomical Region Laterality Modality Spine, C-Spine, Neck Computed Radiograph y Specimen (Source) Anatomical Collection Method Collection Time Re ceived Time Location / / Volume Laterality 12/26/2018 1:44 PM CANDY CATCHER Narrative 12/26/2018 3:41 PM CANDY CATCHER EXAM: XR CERVICAL SPINE AP/LAT UPRIGHT LOCATION: [facility] DATE/TIME: 12/26/2018 1:44 PM [...] EXAM: XR CERVICAL SPINE AP/LAT UPRIGHT LOCATION: [facility] DATE/TIME: 12/26/2018 1:44 PM [...] the C1-2 level on lateral view. Sirisha Yomi Maher CONCRETE SMOOTHER, PHYSICIST CRYOGENICS RAD GD documented in this encounter Visit Diagnoses Diagnosis S/P cervical spinal fusion Arthrodesis status documented in this encounter Care Teams Resource Room Teacher Relationship Specialty Start Date End Date Jose Holden MD PCP - General Otolaryngology 12/14/[address] [place], [place] [address] [address] documented as of this encounter
--- OUTSIDE RECORDS SUMMARY | 2022-11-06 15:22 | XMS_ITS | Encounter Summary ---
:1965 Author Organization [facility] Address [address], [place] [address] Care Team Providers Name Role Phone Jose Holden MD Primary Care Provider [phone] Reason for Visit Reason Comments Revisit repeat injections Occipital VS Trigger point Encounter Details Date Type Department Care Team Description 02/06/2019 Office Visit [facility] Bilateral occ ipital neuralgia (Primary Dx); [facility] Carole Bowden Myalgia; Pain Management [address] Fibromyalgia; [address] [place], [place] Cervical vertebral fusion; [place], [place] [id number] Spondylosis of cervical region without m yelopathy or radiculopathy [phone] Social History Tobacco Use Types Packs/Day Years [...] treatment plan is, please contact me via [email or web address] online messaging or call the office at and ask to speak to a nurse. Tony Pittman MD Pain Medicine documented in this encounter Progress Notes Tony Pittman MD - 02/06/2019 2:30 PM CDT Pending sale to [facility] Follow-up Visit 02/06/2019 Interim history: [...] Oxycodone 5 mg Q6H - Prescribes by [facility], has been [...] at a pain clinic in the past. [facility] physical therapy: [...] anterior cervical fusion 2017 Dr. Ihsan Brooke, [facility] past surgical history reviewed with patient. [...] ??? medical cannabis patient certified Take 1 Portal by mouth . ??? naloxone (NARCAN) 4 [...] facility-administered medications prior to visit. [place] and [place] Prescription Monitoring Program reviewed Allergies: [...] in her mother. Social history:she lives in [place], [place].she is not currently working. Smokin/2 ppd. [...] These are unchanged from previous. Barriers: 1. 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 Patient education: I [...] Pain Medicine [facility] This note created using speech-recognition software and may contain unintended word substitutions. documented in this encounter Plan of Treatment Upcoming Encounters Date Type Specialty Care Team Description 12/02/2022 Appointment Orthopedics Donald Medley MD [address] [facility] [address] [place] [phone] (Wo rk) 12/31/2022 Appointment Orthopedics Donald Medley MD [address] [facility] [address] [place] [place] [phone] (Wo rk) documented as of this encounter Visit Diagnoses Diagnosis Bilateral occipital neuralgia - Primary Myalgia Mylagia and myositis, unspecified Fibromyalgia Mylagia and myositis, unspecified Cervical vertebral fusion Klippel-Feil syndrome Spondylosis of cervical region without m yelopathy or radiculopathy (HRC) Cervical spondylosis without myelopathy documented in this encounter Care Teams Back End Engineer Relationship Specialty Start Date End Date Jose Holden MD PCP - General Otolaryngology 12/14/17 [place] [address] documented as of this encounter
--- OUTSIDE RECORDS SUMMARY | 2022-11-06 15:22 | XMS_ITS | Encounter Summary ---
:1965 Author Organization [facility] Address [address] [address] Care Team Providers Name Role Phone Jose Holden MD Primary Care Provider Reason for Referral Consult/Transfer Care (Routine) - Closed Specialty Diagnoses / Procedures Referred By Contact Refer red To Contact Diagnoses Traumatic brain injury, without loss of consciousness, initial encounter (HRC) Tony Pittman MD [address] [place] [address] Referral ID Status Reason Start Date Expiration Date Visits Requ ested Visits Authorized [id number] Closed 12/26/2018 03/26/2020 1 1 Scheduling Instructions Your provider has [facility] an [facility] ment [facility] You may call [phone] to schedule your appointment. If you prefer, a program scheduler will contact you [facility] the next 3 business days to assist you in setting up this appointment. ER MIXER Reason for Visit Reason Comments Revisit Bilateral cervical/thoracic trigger point injections Encounter Details Date Type Department Care Team Description 12/26/2018 Office Visit Tony Huggins occipital neuralgia (Primary Dx); [facility] Pain [facility]MD Myalgia; Management [address] H/O cervical spinal arthrodesis; [address] [place], [place] Traumatic brain injury, with out loss of consciousness, initial encounter (HRC) [place] [phone] Social History Tobacco Use Types Packs/Day Years [...] Comments Blood Pressure 115/72 12/26/2018 2:48 PM POWDER MIXER Pulse 70 12/26/2018 2:48 PM POWDER MIXER Temperature - - Respiratory Rate [...] treatment plan is, please contact me via Trigg[employer]rap online messaging or call the office at and ask to speak to a nurse. Tony Pittman MD Pain Medicine ER MIXER documented in this encounter Progress Notes Tony [...] Patient continues to get chronic oxycodone from [facility] in [place] and does not planon decreasing her dosage. [...] Oxycodone 5 mg Q6H - Prescribes by [facility], has been taking [...] at a pain clinic in the past. [facility] physical therapy: Past [...] anterior cervical fusion 2016 Dr. Ihsan Brooke, [facility] past surgical [...] ??? medical cannabis patient certified Take 1 [employer] by mouth . ??? naloxone (NARCAN) 4 [...] facility-administered medications prior to visit. [place] and [place] Prescription Monitoring Program reviewed Allergies: [...] in her mother. Social history:she lives in [place], [place].she is not currently working. Smokin/2 ppd. [...] traumatic brain injury clinic. 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 Patient education: [...] behalf by Gillian Harding, a trained medical service technician. The creation of this record is based on the scribe's personal observations and the provider's statements to her. The document has been checked and approved by the attending provider. ER MIXER documented in this encounter Plan of Treatment Upcoming Encounters Date Type Specialty Care Team Description 12/02/2022 Appointment Orthopedics [facility] [facility] [address] [place], [place] [phone] (Wo manuelito) 12/31/2022 Appointment Orthopedics Donald Medley MD [address] [phone] (Babatunde billings) Scheduled Referrals Name Type Priority Associated Diagnoses Order S chedule [facility] Referral Routine Traumatic brain injury, with out loss Ordered: 12/26/2018 of consciousness, initial en counter (HRC) documented as of this encounter Visit Diagnoses Diagnosis Bilateral occipital neuralgia - Primary Myalgia Mylagia and myositis, unspecified H/O cervical spinal arthrodesis Arthrodesis status Traumatic brain injury, without loss of consciousness, initial encounter (HRC) documented in this encounter Care Teams Programmer Analyst Health It Relationship Specialty Start Date End Date Jose Holden MD PCP - General Otolaryngology 12/14/[address] [place] [address] documented as of this encounter
--- OUTSIDE RECORDS SUMMARY | 2022-11-06 15:22 | XMS_ITS | Encounter Summary ---
:1965 Author Organization [facility] Address [address], [place] [address] Care Team Providers Name Role Phone Jose Holden MD Primary Care Provider [phone] Reason for Referral Therapies (Routine) - New Request Specialty Diagnoses / Procedures Referred By Contact Refer red To Contact Diagnoses Status post revision of total replacement of right knee Donald Medley MD [address] [facility] [address] [phone] Referral ID Status Reason Start Date Expiration Date Visits V isits Requested Authorized [id number] New Request 10/14/2022 10/14/2023 1 1 Scheduling Instructions Your provider has recommended an appoint ment with [facility]. You can quickly make your appointment online at [facility]schedule. You can also call [phone] for help scheduling yo ur appointment. We suggest you call your health insurance company about your cove rage and benefits for this appointment. CTOR POWER Reason for Visit Reason Comments Follow-up Encounter Details Date Type Department Care Team Description 10/14/2022 Office Visit Donald Esteves Pain du e to total right knee replacement, initial encounter (HRC) (Primary Dx); Orthopaedics & Sports MD Screening examination for infectious dis ease; Medicine [address] [facility] Status post revision of tota l replacement of right knee [address] [place], [place] [address] [phone] Social History Tobacco Use Types Packs/Day Years [...] 12/02/2022 Appointment Orthopedics Donald Medley MD [address] [place], [place] [phone] (Wo rk) 12/31/2022 Appointment Orthopedics Donald Medley MD [address] [facility] [address] [place], [place] [phone] (Wo rk) Scheduled Orders Name Type Priority Associated Diagnoses Order S chedule MRSA/MSSA Pre-Op Microbiology Routine Screening examination Ex pected: Culture (Nares, left for infectious disea se 10/14/2022, Expires: & right) 10/14/2023 Scheduled Referrals Name Type Priority Associated Diagnoses Order S chedule Physical Therapy Referral Routine Status post revision of total Ordered: 10/14/2022 replacement of right knee documented as of this encounter Results C-Reactive Protein (10/14/2022 2:43 PM DIRECTOR POWER) P athologist Signature C-Reactive <0.5 0.0 - 0.7 10/14/2022 [facility] Protein mg/dL 6:49 PM DIRECTOR POWER LABORATORY Specimen Anatomical Collection Method / Collection Time Recei jose Time (Source) Location / Volume Laterality Blood Venipuncture / 10/14/2022 2:43 10/14/2022 2:55 Unknown PM DIRECTOR POWER PM DIRECTOR POWER Donald Medley MD LAB_1 Performing Organization Address City/State/ZIP Code Phon e Number [facility] [address] [place], [place] [phone] documented in this encounter Visit Diagnoses Diagnosis Pain due to total right knee replacement , initial encounter (HRC) - Primary Screening examination for infectious dis ease Screening examination for unspecified in fectious disease Status post revision of total replacemen t of right knee documented in this encounter Care Teams Office Supervisor Relationship Specialty Start Date End Date Jose Holden MD PCP - General Otolaryngology 12/14/17 [place] [address] documented as of this encounter
--- OUTSIDE RECORDS SUMMARY | 2022-11-06 15:22 | XMS_ITS | Encounter Summary ---
:1965 Author [facility] Address [address] [address] Care Team Providers Name Role Phone Jose Holden MD Primary Care Provider [phone] Encounter Details Date Type Department Care Team Description 10/14/2022 Lab Visit [facility] to total right Laboratory knee [place], [place] [address] [facility] encounter (HRC) [place] [address] Social History Tobacco Use Types Packs/Day Years [...] 12/02/2022 Appointment Orthopedics Donald Medley MD 1601 [facility] [address] [place], [place] [phone] (Wo rk) 12/31/2022 Appointment Orthopedics Donald Medley MD [address] [facility] [address] [place], [place] [phone] (Wo rk) documented as of this encounter Procedures Procedure Name Priority Date/Time Associated Comments Diagnosis CBC AND DIFFERENTIAL Routine 10/14/2022 2:43 PM Pain due to to beto Results for this PANEL ENGINEERING ANALYST right knee procedure are i n replacement, the results initial encounter section. (HRC) COMPLETE BLOOD Routine 10/14/2022 2:43 PM Pain due to total Re sults for this COUNT-W/DIFF ENGINEERING ANALYST right knee procedure are i n replacement, the results initial encounter section. (HRC) C-REACTIVE PROTEIN Routine 10/14/2022 2:43 PM Pain due to tota l Results for this ENGINEERING ANALYST right knee procedure are i n replacement, the results initial encounter section. (HRC) documented in this encounter Results Complete Blood Count-W/Diff (10/14/2022 2:43 PM ENGINEERING ANALYST) athologist Signature WBC 9.2 3.5 - 10.5 10/14/2022 [facility] x10(9)/L 3:01 PM ENGINEERING ANALYST LABORATORY RBC 4.12 3.90 - 10/14/2022 [facility] 5.03 3:01 PM ENGINEERING ANALYST LABORATORY x10(12)/L Hemoglobin 12.5 12.0 - 10/14/2022 [facility] 15.5 g/dL 3:01 PM ENGINEERING ANALYST LABORATORY HCT 38.3 34.9 - 10/14/2022 [facility] 44.5 % 3:01 PM ENGINEERING ANALYST LABORATORY MCV 93.0 80.0 - 10/14/2022 [facility] 100.0 fL 3:01 PM ENGINEERING ANALYST LABORATORY MCH 30.3 27.6 - 10/14/2022 [facility] 33.3 pg 3:01 PM ENGINEERING ANALYST LABORATORY MCHC 32.6 31.5 - 10/14/2022 [facility] 35.2 g/dL 3:01 PM ENGINEERING ANALYST LABORATORY RDW 15.0 11.9 - 10/14/2022 [facility] 15.5 % 3:01 PM ENGINEERING ANALYST LABORATORY Platelets 331 150 - 450 10/14/2022 [facility] x10(9)/L 3:01 PM ENGINEERING ANALYST LABORATORY Automated NRBC 0 <=0 /100 10/14/2022 [facility] WBC 3:01 PM ENGINEERING ANALYST LABORATORY Neutrophil 6.6 1.7 - 7.0 10/14/2022 [facility] Absolute 10(9)/L 3:01 PM ENGINEERING ANALYST LABORATORY Lymphocyte 1.9 1.0 - 4.8 10/14/2022 [facility] Absolute 10(9)/L 3:01 PM ENGINEERING ANALYST LABORATORY Monocytes 0.6 0.2 - 0.9 10/14/2022 [facility] Absolute 10(9)/L 3:01 PM ENGINEERING ANALYST LABORATORY Eosinophil 0.1 0.0 - 0.5 10/14/2022 [facility] Absolute 10(9)/L 3:01 PM ENGINEERING ANALYST LABORATORY Basophil 0.0 0.0 - 0.3 10/14/2022 [facility] Absolute 10(9)/L 3:01 PM ENGINEERING ANALYST LABORATORY Immature Gran % 0.3 0.0 - 0.5 10/14/2022 [place] % 3:01 PM ENGINEERING ANALYST LABORATORY Specimen Anatomical Collection Method / Collection Time Recei jose Time (Source) Location / Volume Laterality Blood Venipuncture / 10/14/2022 2:43 10/14/2022 2:55 Unknown PM ENGINEERING ANALYST PM ENGINEERING ANALYST Donald Medley MD LAB_1 Performing Organization Address City/[facility]/ZIP Code Phon e Number [facility] [address] [place], [place] [phone] C-Reactive Protein (10/14/2022 2:43 PM ENGINEERING ANALYST) P athologist Signature C-Reactive <0.5 0.0 - 0.7 10/14/2022 [facility] Protein mg/dL 6:49 PM ENGINEERING ANALYST LABORATORY Specimen Anatomical Collection Method / Collection Time Recei jose Time (Source) Location / Volume Laterality Blood Venipuncture / 10/14/2022 2:43 10/14/2022 2:55 Unknown PM ENGINEERING ANALYST PM ENGINEERING ANALYST Donald Medley MD LAB_1 Performing Organization Address City/[facility]/ZIP Code Phon e Number [facility] [address] [place] [phone] documented in this encounter Visit Diagnoses Diagnosis Pain due to total right knee replacement , initial encounter (HRC) documented in this encounter Care Teams Vinyl Installer Relationship Specialty Start Date End Date Jose Holden MD PCP - General Otolaryngology 12/14/17 [place] [address] documented as of this encounter
--- OUTSIDE RECORDS SUMMARY | 2022-11-06 15:22 | XMS_ITS | Encounter Summary ---
:1965 Author [facility] Address [address] [place] [address] Care Team Providers Name Role Phone Jose Holden MD Primary Care Provider [phone] Reason for Visit Reason Comments Surgery Questions Encounter Details Date Type Department Care Team Description 10/15/2022 Telephone TRIA Donald Millard MD Surgery Questions Orthopaedics & Sports [address] [facility] [address] [address] [place] [phone] (Wo rk) Social [...] this encounter Nursing Notes Elva Bradshaw - 10/19/2022 11:29 AM CST Surgery scheduled. Packet mailed. Thank you CD LY SUPPORT SPECIALIST Su Benavidez - 10/15/2022 3:33 PM CST Patient is wanting a call back to schedule surgery with Dr. Medley. She is hoping to have the date available soon with the holidays coming up. Please call when able. LY SUPPORT SPECIALIST documented in this encounter Plan of Treatment Upcoming Encounters Date Type Specialty Care Team Description 12/02/2022 Appointment Orthopedics [facility] Medley MD [facility] [address] [place] [phone] (Wo rk) 12/31/2022 Appointment Orthopedics Donald Medley MD [facility] [address] [place] [phone] (Wo rk) documented as of this encounter Visit Diagnoses Not on filedocumented in this encounter Care Teams Software Qa Manager Relationship Specialty Start Date End Date Jose Holden MD PCP - General Otolaryngology 12/14/17 [facility] [place] [address] documented as of this encounter
--- OUTSIDE RECORDS SUMMARY | 2022-11-06 15:22 | XMS_ITS | Encounter Summary ---
:1965 Author Organization [facility] Address [address] [address] Care Team Providers Name Role Phone Jose Holden MD Primary Care Provider [phone] Encounter Details Date Type Department Care Team Description 12/26/2018 Consent for [facility] Toya, CONSENT FOR Procedure/[facility] Tony Alvarado MD PROCEDURE ent Pain Management [address] [place] [phone] Social History Tobacco Use Types Packs/Day Years [...] 12/02/2022 Appointment Orthopedics Donald Medley MD [address] [phone] (Wo rk) 12/31/2022 Appointment Orthopedics Donald Medley MD 1601 [facility] 200 [place], [place] [phone] (Wo rk) documented as of this encounter Visit Diagnoses Not on filedocumented in this encounter Care Teams Hydraulic Miner Blasting Relationship Specialty Start Date End Date Jose Holden MD PCP - General Otolaryngology 12/14/17 [place] [address] documented as of this encounter
--- OUTSIDE RECORDS SUMMARY | 2022-11-06 15:22 | XMS_ITS | Encounter Summary ---
:1965 Author Organization [facility] Address [address], [place] [address] Care Team Providers Name Role Phone Jose Holden MD Primary Care Provider [phone] Reason for Referral Procedure/Equipment (Routine) - Closed Specialty Diagnoses / Procedures Referred By Contact Refer red To Contact Diagnoses Dizziness Concussion with loss of consciousness of 30 minutes or less, subsequent encounter Alyse Carias, PT [address] [place] [address] Referral ID Status Reason Start Date Expiration Date Visits Requ ested Visits Authorized [id number] Closed 03/06/2019 06/04/2020 20 20 Scheduling Instructions . Reason for Visit Reason Comments Concussion Therapies (Routine) - Closed Specialty Diagnoses / Procedures Referred By Contact Refer red To Contact Diagnoses Impairment of balance Dizziness Blanka Mead, REVIEW MANAGER, CN P [address] [place] [address] Referral ID Status Reason Start Date Expiration Date Visits Requ ested Visits Authorized [id number] Closed 02/16/2019 04/17/2019 1 1 Encounter Details Date Type Department Care Team Description 03/06/2019 Office Visit Alyse Bee Dizziness (Primary Dx); [facility] A, PT Concussion with loss of consciousness of 30 minutes or less, subsequent encounter Physical Therapy [address] [place] [address] Social History Tobacco Use Types Packs/Day [...] impacting her status (scheduled for surgery at [facility] on 02/28/19). Tinnitus- scheduled for hearing assessment [...] limited function due to PMH Lives in [place]. Independent with ADLs, driving. Current Level of [...] within her allowable cervical ROM). Access Code: [email or web address] URL: [email or web address] Date: 03/06/2019 Prepared by: Alyse Carias Exercises Standing Gaze Stabilization with Head Rotation - 1-3 reps - 30-40 seconds - 3x daily - 7x weekly Education regarding Rule of 2 -Discussed option of closer location to her home yet noted she would be able to attend at [facility]. Patient's Response to Therapy: Good Home Program [...] 12/02/2022 Appointment Orthopedics Donald Medley MD 1601 [facility] [address] [place], [place] [phone] (Wo rk) 12/31/2022 Appointment Orthopedics Donald Medley MD 1601 [facility] [address] [place], [place] [phone] (Babatunde billings) Scheduled Referrals [...] encounter documented in this encounter Care Teams Sound Engineer Relationship Specialty Start Date End Date Jose Holden MD PCP - General Otolaryngology 12/14/17 [address] [phone] documented as of this encounter
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
--- OUTSIDE RECORDS SUMMARY | 2022-11-06 15:22 | XMS_ITS | Encounter Summary ---
:1965 Author [facility] Address [address] [place] [address] Care Team Providers Name Role Phone Jose Holden MD Primary Care Provider [phone] Reason for Visit Reason Comments Revisit trigger point injections/occ ipital nerve blocks Encounter Details Date Type Department Care Team Description 03/06/2019 Office Visit [facility]man Bilateral occ ipital neuralgia (Primary Dx); [facility] Carole Bowden Myalgia; Pain Management [address] Cervical vertebral fusion; [address] [place], [place] Spondylosis of cervical princess on without myelopathy or radiculopathy [place], [place] [id number] Social History Tobacco Use Types Packs/Day [...] Patient Instructions Patient InstructionsKiTony leslie MD - 03/06/2019 2:45 PM CDT Impression: [...] treatment plan is, please contact me via [employer] online messaging or call the office at and ask to speak to a nurse. Tony Pittman MD Pain Medicine documented in this encounter Progress Notes Tony Pittman MD - 03/06/2019 2:45 PM CDT [facility] Follow-up Visit 03/06/2019 Interim history: [...] 5 mg Q6H - Prescribes by [facility], has been taking for [...] a pain clinic in the past. [facility] physical therapy: Past Acupuncture: [...] anterior cervical fusion 2016 Dr. Ihsan Brooke, [facility] past surgical history reviewed with patient. [...] ??? medical cannabis patient certified Take 1 [place] by mouth . ??? naloxone (NARCAN) 4 [...] facility-administered medications prior to visit. [place] and [place] Prescription Monitoring Program reviewed Allergies: Allergies Allergen [...] in her mother. Social history:she lives in [place], [place].she is not currently working. Smokin/2 ppd. [...] limited. Significant posterior surgical deformity of neck. Preventive Maintenance Coordinator to palpation bilateral levator scapulae, splenius, [...] These are unchanged from previous. Barriers: 1. half-way opioid use Plan: 1. Patient education: I [...] and Rehabilitation [facility] This note created using speech-recognition software and may contain unintended word substitutions. documented in this encounter Plan of Treatment Upcoming Encounters Date Type Specialty Care Team Description 12/02/2022 Appointment Orthopedics Donald Medley MD [address] [facility] [address] [place], [place] [phone] (Wo rk) 12/31/2022 Appointment Orthopedics Donald Medley MD [address] [facility] [address] [place], [place] [phone] (Wo rk) documented as of this encounter Visit Diagnoses Diagnosis Bilateral occipital neuralgia - Primary Myalgia Mylagia and myositis, unspecified Cervical vertebral fusion Klippel-Feil syndrome Spondylosis of cervical region without m yelopathy or radiculopathy (HRC) Cervical spondylosis without myelopathy documented in this encounter Care Teams Refrigerating Machine Operator Relationship Specialty Start Date End Date Jose Holden MD PCP - General Otolaryngology 12/14/17 [facility] [address] documented as of this encounter
--- OUTSIDE RECORDS SUMMARY | 2022-11-06 15:22 | XMS_ITS | Encounter Summary ---
:1965 Author Organization [facility] Address [address] [place] [address] Care Team Providers Name Role Phone Jose Holden MD Primary Care Provider [phone] Reason for Visit Reason Comments Medication Request Encounter Details Date Type Department Care Team Description 12/08/2019 Telephone Careline Unknown, Physician Medication Request [address] [place], [place] [address] [place], [place] [phone] (Wo rk) Social History Tobacco Use Types [...] pain medication. Pt advised to surgeon at [place]. E DEVELOPER documented in this encounter Plan of Treatment Upcoming Encounters Date Type Specialty Care Team Description 12/02/2022 Appointment Orthopedics Donald Medley MD [address] [facility] [address] [place], [place] [phone] (Wo rk) 12/31/2022 Appointment Orthopedics Donald Medley MD [address] [facility] [address] [place] [phone] (Wo rk) documented as of this encounter Visit Diagnoses Not on filedocumented in this encounter Care Teams Ship Ceiler Relationship Specialty Start Date End Date Jose Holden MD PCP - General Otolaryngology 12/14/[address] [place] [phone] documented as of this encounter
--- OUTSIDE RECORDS SUMMARY | 2022-11-06 15:22 | XMS_ITS | Encounter Summary ---
:1965 Author Organization [facility] Address [address] [place] [address] Care Team Providers Name Role Phone Jose Holden MD Primary Care Provider [phone] Encounter Details Date Type Department Care Team Description [facility]Treat [facility] Tony Alvarado MD FOR TX/PROCEDURE ent Pain Management [address] [place] [phone] Social History Tobacco Use Types Packs/Day Years [...] 12/02/2022 Appointment Orthopedics Donald Medley MD [address] [facility] [address] [place], [place] [phone] (Wo rk) 12/31/2022 Appointment Orthopedics Donald Medley MD [address] [facility] [address] [place], [place] [phone] (Wo rk) documented as of this encounter Visit Diagnoses Not on filedocumented in this encounter Care Teams Thread Grinder Tool Relationship Specialty Start Date End Date Jose Holden MD PCP - General Otolaryngology 12/14/17 [place] [address] documented as of this encounter
--- OUTSIDE RECORDS SUMMARY | 2022-11-06 15:23 | XMS_ITS | Encounter Summary ---
:1965 Author Organization [facility] Address [address] [place] [address] Care Team Providers Name Role Phone Jose Holden MD Primary Care Provider [phone] Reason for Visit Reason Comments Revisit Bilateral cervical/thoracic trigger point injections Encounter Details Date Type Department Care Team Description 08/14/2018 Office Visit [facility] occipital neuralgia (Primary Dx); [facility] Myalgia; Management [address] H/O cervical spinal arthrodesis [address] [place] [phone] Social History Tobacco Use Types Packs/Day Years [...] MD - 08/14/2018 3:00 PM CDT [facility] Follow-up Visit 08/14/2018 Interim [...] Oxycodone 5 mg Q6H - Prescribes by [facility], has been taking for [...] at a pain clinic in the past. 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 History of dysphagia s/p cervical [...] anterior cervical fusion 2017 Dr. Ihsan Brooke, [facility] past surgical history reviewed with [...] ??? medical cannabis patient certified Take 1 [place] by mouth . ??? naloxone (NARCAN) 4 [...] Gain No facility-administered medications prior to visit. [place] and [place] Prescription Monitoring Program reviewed Allergies: Allergies Allergen [...] in her mother. Social history:she lives in [place], [place].she is not currently working. Smokin/2 ppd. [...] Medicine [facility] This document serves as a record of services personally performed by Tony Pittman MD. It was created on his behalf by Gillian Harding, a trained medical lab specialist. The creation of this record is based on the scribe's personal observations and the provider's statements to her. The document has been checked and approved by the attending provider. documented in this encounter Plan of Treatment Upcoming Encounters Date Type Specialty Care Team Description 12/02/2022 Appointment Orthopedics Donald Medley MD [address] [facility] [address] [place] [phone] (Wo rk) 12/31/2022 Appointment Orthopedics Donald Medley MD [address] [facility] [address] [place] [phone] (Wo rk) documented as of this encounter Visit Diagnoses Diagnosis Bilateral occipital neuralgia - Primary Myalgia Mylagia and myositis, unspecified H/O cervical spinal arthrodesis Arthrodesis status documented in this encounter Care Teams Bag Filler Machine Operator Relationship Specialty Start Date End Date Jose Holden MD PCP - General Otolaryngology 12/14/17 [place] [address] documented as of this encounter
--- OUTSIDE RECORDS SUMMARY | 2022-11-06 15:23 | XMS_ITS | Encounter Summary ---
:1965 Author Organization [facility] Address [address], [place] [address] Care Team Providers Name Role Phone Jose Holden MD Primary Care Provider [phone] Reason for Visit Reason Comments Revisit trigger point injections Encounter Details Date Type Department Care Team Description 06/29/2018 Office Visit [facility] Myalgia (Primary Dx); [facility] Raul Alvarado MD Medical marijuana use; Management [address] H/O cervical spinal arthrodesis; [address] [place], [place] [address] [phone] Social History Tobacco Use Types Packs/Day Years [...] encounter Patient Instructions Patient InstructionsGillian Harding - 06/29/2018 10:20 AM CDT Impression: Myalgia [...] treatment plan is, please contact me via [employer] online messaging or call the office at and ask to speak to a nurse. Tony Pittman MD Pain Medicine documented in this encounter Progress Notes Tony Pittman MD - 06/29/2018 10:20 AM CDT [facility] Follow-up Visit 06/29/2018 Interim history: [...] mg Q6H - Prescribes by [facility], has been taking for many [...] pain clinic in the past. [facility] physical therapy: Past Acupuncture: None [...] ??? medical cannabis patient certified Take 1 [place] by mouth . ??? naloxone (NARCAN) 4 [...] facility-administered medications prior to visit. [place] and [place] Prescription Monitoring Program reviewed Allergies: [...] in her mother. Social history:she lives in [place], [place].she is not currently working. Smokin/2 ppd. [...] blocks instead in the future Barriers: 1. buttermaker continuous churn opioid use Plan: 1. Patient education: I [...] behalf by Gillian Harding, a trained medical assistant prn. The creation of this record is based on the scribe's personal observations and the provider's statements to her. The document has been checked and approved by the attending provider. documented in this encounter Plan of Treatment Upcoming Encounters Date Type Specialty Care Team Description 12/02/2022 Appointment Orthopedics Donald Medley MD [address] [phone] (Babatunde billings) 12/31/2022 Appointment OrthopedicDonald Thomas MD [address] [phone] (Wo rk) documented as of this encounter Visit Diagnoses Diagnosis Myalgia - Primary Mylagia and myositis, unspecified Medical marijuana use H/O cervical spinal arthrodesis Arthrodesis status Tobacco use disorder (HRC) Tobacco use disorder documented in this encounter Care Teams Knobber Relationship Specialty Start Date End Date Jose Holden MD PCP - General Otolaryngology 12/14/[address] [place], [place] [address] [address] documented as of this encounter
--- OUTSIDE RECORDS SUMMARY | 2022-11-06 15:23 | XMS_ITS | Encounter Summary ---
:1965 Author Organization [facility] [facility] Address [address] [place] [address] Care Team Providers Name Role Phone Jose Holden MD Primary Care Provider [phone] Reason for Referral Therapies (Routine) - Closed Specialty Diagnoses / Procedures Referred By Contact Refer red To Contact Diagnoses S/P cervical spinal fusion Pete Gonzalez MD [address] [place] [address] Referral ID Status Reason Start Date Expiration Date Visits Requ ested Visits Authorized [id number] Closed 06/26/2018 08/25/2018 1 1 Scheduling Instructions Your provider has recommended an appoint ment with a [facility] Physical Therapist. Please stop at the clinic check out desk for assistance with scheduling or if you prefer to call for your appointment you may call [facility] [place] at [phone]. We suggest yo u call your health insurance company about your coverage and benefits for this appo intment. Reason for Visit Reason Comments RESULTS, TEST Orders Needed Encounter Details Date Type Department Care Team Description 06/22/2018 Telephone [facility] Pete Gonzalez MD RESULTS, TEST; Orders Neuro[facility] [address] [facility] eded Neurosurgery/Ortho S [address] [place] [address] [place] [address] [phone] (Wo rk) Social History Tobacco Use Types [...] this encounter Nursing Notes Michael Cruz - 06/28/2018 11:50 AM CDT Noted. Patient is now scheduled for 08/14/18 at 1:00pm with Dr. Gonzalez. Michael Cruz 06/28/2018, 11:51 AM Chava Simon RN [...] getting a stimulator or morphine pump through [facility]. She is wondering if she should wait and discuss possible surgical options with Dr. Gonzalez or just get the stimulator or morphine pump? Please advise. Chava Simon RN 06/28/2018, 8:45 AM Michale Cruz - 06/28/2018 8:25 AM CDT Patient calling in regards to her imaging results. Timekeeper Supervisor relayed message from Lois Pham PA-C. Patient states that she would like a return call. Patient states she doesn't understand why there are no acute concerns? She will be seeing [facility] to discuss getting a stimulator or morphine pump. Patient would like to know if she should move forward with this from Neurosurgery standpoint. Please call patient to further discuss and advise. Michael Cruz 06/28/2018, 8:27 AM Chava Simon RN - 06/28/2018 8:24 AM CDT [facility] Chava Simon RN 06/28/2018, 8:26 AM [...] Michael Cruz - 06/26/2018 11:18 AM CDT Timekeeper Supervisor reached patient and relayed message below to her. Patient expressed her appreciation. Per herrequest order has been sent to [facility] at [phone] with a note to have them call patient to schedule. Patient aware they will reach out to schedule her for PT. She also states she picked up a copy of her imaging and they relayed that they had alreadysent one. Timekeeper Supervisor called their radiology department and spoke to Selena who states a CD was not mailed out and she is not sure why. She took down clinic address of [place] [id number] [address] and stated she would send one out [...] sure she has had this sent from [facility] for team to review. Chava Simon RN [...] of CT and MRIthat were done at [facility] on 06/20. Informed pt that Dr. Gonzalez's [...] 12/02/2022 Appointment Orthopedics Donald Medley MD [address] [facility] [address] [place] [phone] (Wo rk) 12/31/2022 Appointment OrthopedicDonald Thomas MD [address] [facility] [address] [place] [phone] (Wo rk) Scheduled Referrals Name Type Priority Associated Diagnoses Order S chedule Physical Therapy Referral Routine S/P cervical spinal fusi on Ordered: 06/26/2018 documented as of this encounter Visit Diagnoses Diagnosis S/P cervical spinal fusion - Primary Arthrodesis status documented in this encounter Care Teams Livestock Agent Relationship Specialty Start Date End Date Jose Holden MD PCP - General Otolaryngology 12/14/17 [place] [address] documented as of this encounter
--- OUTSIDE RECORDS SUMMARY | 2022-11-06 15:23 | XMS_ITS | Encounter Summary ---
:1965 Author Organization [facility] Address [address], [place] [address] Care Team Providers Name Role Phone Jose Holden MD Primary Care Provider [phone] Reason for Visit Procedure/Equipment (Routine) - Incomplete Specialty Diagnoses / Procedures Referred By Contact Refer red To Contact Diagnoses Cervical spondylosis with radiculopathy (HRC) Sneha Maher, Sirisha Celaya, Procedures XR Cervical Spine AP/Lat Upright BRAKE TESTER, MATERIAL COORDINATOR [address] [place] [address] Referral ID Status Reason Start Date Expiration Date Visits V isits Requested Authorized [id number] Incomplete 02/21/2018 05/23/2019 1 1 Encounter Details Date Type Department Care Team Description 04/05/2018 Imaging [facility] Sneha Maher, Cervical spondylosis [facility] Sirisha Celaya, APR N, MATERIAL COORDINATOR with radiculopathy Radiology [address] [place] [address] [phone] (Wo rk) Social History Tobacco Use Types [...] 12/02/2022 Appointment Orthopedics Donald Medley MD [facility] [facility] [address] [phone] (Wo rk) 12/31/2022 Appointment Orthopedics Donald Medley MD [address] [facility] [address] [address] [...] failure. Anatomic alignment. Shoulder prosthesis. Sirisha Maher BRAKE TESTER, MATERIAL COORDINATOR RAD GD documented in this encounter Visit Diagnoses Diagnosis Cervical spondylosis with radiculopathy (HRC) Cervical spondylosis with myelopathy documented in this encounter Care Teams Assistant To The Director Relationship Specialty Start Date End Date Jose Holden MD PCP - General Otolaryngology 12/14/17 [address] [place] [address] documented as of this encounter
--- OUTSIDE RECORDS SUMMARY | 2022-11-06 15:23 | XMS_ITS | Encounter Summary ---
:1965 Author Organization [facility] Address [address], [place] [address] Care Team Providers Name Role Phone Jose Holden MD Primary Care Provider [phone] Encounter Details Date Type Department Care Team Description 03/24/2018 Telephone [facility] Neuroscience Chava Simon RN [place] Neurosurgery/ Ortho Spine [address] [place] [address] [phone] Social History Tobacco Use Types Packs/Day Years [...] Chava Simon RN 03/24/2018, 10:24 AM Sirisha Rankin APRN, GROUP FITNESS DEPARTMENT HEAD - 03/24/2018 9:52 AM CDT Continue to monitor symptoms. No change in plan/appointment at this time. We will review cervical CTwhen it is available. Sirisha Jefferson APRN, GROUP FITNESS DEPARTMENT HEAD 03/24/2018, 9:53 AM Chava Simon RN - 03/24/2018 9:23 AM CDT Patient called and state she was in a little accident last night. She ended up going to [facility]. 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 Patient [...] clinic on 03/27/18 which were done at [facility]) Chava Simon RN 03/24/2018, 9:37 AM documented in this encounter Plan of Treatment Upcoming Encounters Date Type Specialty Care Team Description 12/02/2022 Appointment Orthopedics Donald Medley MD [address] [facility] [address] [place] [phone] (Wo rk) 12/31/2022 Appointment Orthopedics Donald Medley MD [address] [facility] [address] [phone] (Wo rk) documented as of this encounter Visit Diagnoses Not on filedocumented in this encounter Care Teams Sales Center Associate Relationship Specialty Start Date End Date Jose Holden MD PCP - General Otolaryngology 12/14/17 [facility] [place] [address] documented as of this encounter
--- OUTSIDE RECORDS SUMMARY | 2022-11-06 15:23 | XMS_ITS | Encounter Summary ---
:1965 Author Organization [facility] Address [address], [place] [address] Care Team Providers Name Role Phone Jose Holden MD Primary Care Provider [phone] Reason for Visit Reason Comments Medication Check In Encounter Details Date Type Department Care Team Description 03/07/2018 Telephone [facility] Pete Gonzalez MD Medication Check In [facility] [facility] Neuro[facility]/Ortho [place], [place] [address] [address] [place] [address] [phone] Social History Tobacco Use Types Packs/Day Years [...] - 03/07/2018 12:25 PM CDT Pharmacist Mandy almaraz from [facility]. She would like to inform provider [...] 12/02/2022 Appointment Orthopedics Donald Medley MD [address] [facility] [address] [phone] (Wo rk) 12/31/2022 Appointment Orthopedics Donald Medley MD [address] [facility] [address] [phone] (Wo rk) documented as of this encounter Visit Diagnoses Not on filedocumented in this encounter Care Teams Breast Trimmer Relationship Specialty Start Date End Date Jose Holden MD PCP - General Otolaryngology 12/14/17 [facility] [place] [place] [address] documented as of this encounter
--- OUTSIDE RECORDS SUMMARY | 2022-11-06 15:23 | XMS_ITS | Encounter Summary ---
:1965 Author Organization [facility] Address [address], [place] [address] Care Team Providers Name Role Phone Jose Holden MD Primary Care Provider [phone] Encounter Details Date Type Department Care Team Description 06/21/2018 Orders Only External to No Primary/Referring, Phy Social History Tobacco Use [...] Description 12/02/2022 [place] [address] [place] [address] [phone] (Wo rk) 12/31/2022 Appointment Orthopedics Donald Medley MD [address] [facility] [address] [place], [place] [phone] (Wo rk) documented as [...] filedocumented in this encounter Care Teams System Sales Consultant Relationship Specialty Start Date End Date Jose Holden MD PCP - General Otolaryngology 12/14/17 [facility] [place] [address] documented as of this encounter
--- OUTSIDE RECORDS SUMMARY | 2022-11-06 15:23 | XMS_ITS | Encounter Summary ---
:1965 Author Organization [facility] Address [address], [place] [address] Care Team Providers Name Role Phone Jose Holden MD Primary Care Provider [phone] Encounter Details Date Type Department Care Team [...] 12/02/2022 Appointment Orthopedics Donald Medley MD [address] [facility] [address] [place] [address] [phone] (Wo rk) 12/31/2022 Appointment Orthopedics Donald Medley MD [address] [facility] [address] [place], [place] [phone] (Wo rk) documented as [...] on filedocumented in this encounter Care Teams Test Baker Relationship Specialty Start Date End Date Jose Holden MD PCP - General Otolaryngology 12/14/17 [facility] [place] [address] documented as of this encounter
--- OUTSIDE RECORDS SUMMARY | 2022-11-06 15:23 | XMS_ITS | Encounter Summary ---
:1965 Author Organization [facility] Address [address], [place] [address] Care Team Providers Name Role Phone Jose Holden MD Primary Care Provider [phone] Encounter Details Date Type Department Care Team Description 11/10/2018 Orders Only External to Pete Gonzalez MD [address] [place] [address] (Wo rk) Social History Tobacco Use Types [...] 12/02/2022 Appointment Orthopedics Donald Medley MD [address] [phone] (Wo rk) 12/31/2022 Appointment Orthopedics Donald Medley MD [address] [facility] [address] [place], [place] [phone] (Wo rk) documented as of this encounter Procedures Procedure Name Priority Date/Time Associated Diagnosis Comme nts CT SCAN SPINE--SCAN 11/10/2018 12:00 AM R esults for this [employer]PER[employer] procedure are i n the results section. documented in this encounter Results CT SCAN SPINE--SCAN (11/10/2018 12:00 AM SUPER[employer]UX[employer]IES) Anatomical Region Laterality Modality Other Specimen (Source) Anatomical Location Collection Method / Collectio n Time Received Time / Laterality Volume 11/10/2018 Narrative This result has an attachment that is no t available. Pete Gonzalez MD DUMMY/OTHER/AR documented in this encounter Visit Diagnoses Not on filedocumented in this encounter Care Teams Merchandising Lead Relationship Specialty Start Date End Date Jose Holden MD PCP - General Otolaryngology 12/14/17 [facility] [place] [address] documented as of this encounter
--- OUTSIDE RECORDS SUMMARY | 2022-11-06 15:23 | XMS_ITS | Encounter Summary ---
:1965 Author Organization [facility] Address [address] [place] [address] Care Team Providers Name Role Phone Jose Holden MD Primary Care Provider [phone] Encounter Details Date Type Department Care Team Description 06/20/2018 [facility] Procedure/Treat Neuroscience Center Tony Alvarado MD FOR TX/PROCEDURE ent Pain Management [address] [place] [phone] Social History Tobacco Use Types Packs/Day Years [...] 12/02/2022 Appointment Orthopedics Donald Medley MD [address] [facility] [address] [place], [place] [phone] (Wo rk) 12/31/2022 Appointment Orthopedics Donald Medley MD [address] [facility] [address] [place], [place] [phone] (Wo rk) documented as of this encounter Visit Diagnoses Not on filedocumented in this encounter Care Teams Controller Repairer And Tester Relationship Specialty Start Date End Date Jose Holden MD PCP - General Otolaryngology 12/14/17 [place] [address] documented as of this encounter
--- OUTSIDE RECORDS SUMMARY | 2022-11-06 15:23 | XMS_ITS | Encounter Summary ---
:1965 Author Organization [facility] Address [address] [address] Care Team Providers Name Role Phone Jose Holden MD Primary Care Provider [phone] Reason for Visit Reason Comments Forms Encounter Details Date Type Department Care Team Description 07/11/2018 Telephone [facility] Neuroscience Pete Gonzalez MD Forms Center Neurosurgery/Ortho [address] [facility] Spine [place], [place] [address] [address] [place] [address] [phone] Social History Tobacco Use Types Packs/Day Years [...] 12/02/2022 Appointment Orthopedics Donald Medley MD [address] [facility] [address] [place] [phone] (Wo rk) 12/31/2022 Appointment Orthopedics Donald Medley MD [address] [facility] [address] [place] [phone] (Wo rk) documented as of this encounter Visit Diagnoses Not on filedocumented in this encounter Care Teams Cold Water Machine Operator Relationship Specialty Start Date End Date Jose Holden MD PCP - General Otolaryngology 12/14/[address] [place], [place] [address], [place] [id number] documented as of this encounter
--- OUTSIDE RECORDS SUMMARY | 2022-11-06 15:23 | XMS_ITS | Encounter Summary ---
:1965 Author Organization [facility] Address [address], [place] [address] Care Team Providers Name Role Phone Jose Holden MD Primary Care Provider [phone] Reason for Referral Therapies (Routine) - Closed Specialty Diagnoses / Procedures Referred By Contact Refer red To Contact Diagnoses S/P cervical spinal fusion Pete Gonzalez MD [address] [place] [address] Referral ID Status Reason Start Date Expiration Date Visits Requ ested Visits Authorized [id number] Closed 08/16/2018 10/15/2018 1 1 Scheduling Instructions Ynikolai provider has recommended an appoin tment with a [facility] Physical Therapist. Please stop at the clinic check out desk for assistance with scheduling or if you prefer to call for your appointment you may call [facility] at [phone]. We suggest you call your [employer] insurance company about your coverage and benefits for this appointment. Encounter Details Date Type Department Care Team Description 07/07/2018 Telephone [facility] Neuroscience Pete Gonzalez MD Center Neurosurgery/Ortho [address] [facility] Spine [place], [place] [address] [facility] [place] [address] [place] [address] [phone] Social History Tobacco Use Types Packs/Day Years [...] [place] - 08/16/2018 1:41 PM CDT Case Managers contacted patient 08/16-faxed order to [facility] [phone] per patient request Chava Simon RN - [...] [address] [phone] (Wo rk) Scheduled Referrals Name Type Priority Associated Diagnoses Order S chedule Physical Therapy Referral Routine S/P cervical spinal fusi on Ordered: 08/16/2018 documented as of this encounter Visit Diagnoses Diagnosis S/P cervical spinal fusion - Primary Arthrodesis status documented in this encounter Care Teams Crane Rigger Relationship Specialty Start Date End Date Jose Holden MD PCP - General Otolaryngology 12/14/17 [facility] [place] [address] documented as of this encounter
--- OUTSIDE RECORDS SUMMARY | 2022-11-06 15:23 | XMS_ITS | Encounter Summary ---
:1965 Author Organization [facility] Address [address], [place] [address] Care Team Providers Name Role Phone Jose Holden MD Primary Care Provider [phone] Reason for Referral Procedure/Equipment (Routine) - Incomplete Specialty Diagnoses / Procedures Referred By Contact Refer red To Contact Diagnoses S/P cervical spinal fusion Sirisha Rankin, Procedures XR Cervical Spine AP/Lat Upright KALPANA SHER [address] [place] [address] Referral ID Status Reason Start Date Expiration Date Visits V isits Requested Authorized [id number] Incomplete 04/05/2018 07/05/2019 1 1 Reason for Visit Reason Comments POST-OP,EXAM Encounter Details Date Type Department Care Team Description 04/05/2018 Office Visit [facility] Sneha Maher, S/P cervic al spinal [facility] RODRICK Newberry CNP fusion (Primary Dx) Neurosurgery/Ortho [address] Spine [place], [place] [address] [address] [place] [address] [phone] Social History Tobacco Use Types Packs/Day Years [...] your understanding. Please call the Neurosurgery Center [phone] with any further questions or concerns or if your symptoms worsen. Thank you for coming to see us today. We are your partner. documented in this encounter Progress Notes Sirisha Rankin, CHIPPER, PIPELINE SUPERINTENDENT DIVISION - 04/05/2018 1:00 PM CDT POSTOPERATIVE DIAGNOSES: [...] Gonzalez prior to her move out of [facility]. She denies any incisional concerns. She [...] elbow(tricep) R:5/5 L: 5/5 C8 - Finger flexors(marine pipe welder) R:5/5 L: 5/5 T1 - Finger abduction/adduction [...] Donald Medley MD [address] [facility] [address] [phone] (Wo rk) 12/31/2022 Appointment Donald Goldsmith MD [address] [facility] [address] [phone] (Wo rk) documented as of this encounter Results XR Cervical Spine AP/Lat Upright (06/14/2018 1:41 PM CDT) Anatomical Region Laterality Modality Spine, C-Spine, Neck Computed Radiograph y Specimen (Source) Anatomical Collection Method Collection Time Re ceived Time Location / / Volume Laterality 06/14/2018 1:41 PM CDT Narrative 06/14/2018 5:54 PM CDT [facility] XR CERVICAL SPINE AP/LAT UPRIGHT 06/14/2018 [...] note might be different from the original. [facility] XR CERVICAL SPINE AP/LAT UPRIGHT 06/14/2018 [...] soft tissue swelling. Remainder unchanged. Sirisha Maher CHIPPER, PIPELINE SUPERINTENDENT DIVISION RAD GD documented in this encounter Visit Diagnoses Diagnosis S/P cervical spinal fusion - Primary Arthrodesis status S/P cervical spinal fusion Arthrodesis status documented in this encounter Care Teams Harpoon Engagement Planning Operator Relationship Specialty Start Date End Date Jose Holden MD PCP - General Otolaryngology 12/14/17 [place] [address] documented as of this encounter
--- OUTSIDE RECORDS SUMMARY | 2022-11-06 15:23 | XMS_ITS | Encounter Summary ---
:1965 Author Organization [facility] Address [address], [place] [address] Care Team Providers Name Role Phone Jose Holden MD Primary Care Provider [phone] Reason for Visit Reason Comments UPDATE Encounter Details Date Type Department Care Team Description 07/07/2018 Telephone [facility] Perry, UPDATE Center Pain Managepr kole FAULKNER [address] [place] [address] [place] [address] [phone] (Wo rk) Social History Tobacco Use Types Packs/Day Years Used Date Smoking Tobacco: Every Day Cigarettes 0.5 30 Smokeless Tobacco: Never Comments: 30 year smoker on and off, 0.5 a day Alcohol Use Standard Drinks/Week Comments No 0 (1 standard drink = 0.6 oz pure alcoho l) Sex Assigned at Date Recorded Not on file documented as of this encounter Nursing Notes Lawrence Arenas, RN - 07/07/2018 12:44 PM CDT Tool Sharpener called patient, she states she has left neck/shoulder pain that did not improve after TPI's last week. Pt shares her right side of neck/shoulder is getting tight again and she is having headaches. Pt wants to proceed with occipital nerve blocks for her headache. Tool Sharpener offered patient appointment 07/10 which she accepted. [...] 12/02/2022 Appointment Orthopedics Donald Medley MD [facility] [facility] [address] [phone] (Babatunde billings) 12/31/2022 Appointment OrthopedicDonald Thomas MD [address] [facility] [address] [phone] (Babatunde billings) documented as of this encounter Visit Diagnoses Not on filedocumented in this encounter Care Teams Panel Beater Relationship Specialty Start Date End Date Jose Holden MD PCP - General Otolaryngology 12/14/17 [address] [place] [address] documented as of this encounter
--- OUTSIDE RECORDS SUMMARY | 2022-11-06 15:23 | XMS_ITS | Encounter Summary ---
:1965 Author Organization [facility] Address [address], [place] [address] Care Team Providers Name Role Phone Jose Holden MD Primary Care Provider [phone] Reason for Visit Reason Comments POST-OP,EXAM Encounter Details Date Type Department Care Team Description 03/07/2018 Office Visit [facility] Denise ostop check (Primary Center Neurosurgery/Ortho Dx ) Spine [address] [place] [address] Social History Tobacco Use Types [...] documented in this encounter Patient Instructions Patient InstructionsMandy Howe RN - 03/07/2018 11:00 AM CDT Neurosurgery/Spine [...] understanding. Please call the Neurosurgery/Spine Clinic at [phone] with any further questions or concerns. documented [...] 12/02/2022 Appointment Orthopedics Donald Medley MD [address] [facility] [address] [phone] (Wo rk) 12/31/2022 Appointment Orthopedics Donald Medley MD [address] [facility] [address] [phone] (Wo rk) documented as of this encounter Visit Diagnoses Diagnosis Postop check - Primary Follow-up examination, following unspeci fied surgery documented in this encounter Care Teams Smash Hand Relationship Specialty Start Date End Date Jose Holden MD PCP - General Otolaryngology 12/14/[address] [place] [address] documented as of this encounter
--- OUTSIDE RECORDS SUMMARY | 2022-11-06 15:23 | XMS_ITS | Encounter Summary ---
:1965 Author Organization [facility] Address [address], [place] [address] Care Team Providers Name Role Phone Jose Holden MD Primary Care Provider [phone] Reason for Visit Reason Comments QUESTIONS, GENERAL Encounter Details Date Type Department Care Team Description 03/01/2018 Telephone [facility] Pete Gonzalez MD QUESTIONS, GENERAL Neuroscience Center 9[address] [facility] Neurosurgery/Ortho S [place], [place] [address] [address] [place] [address] [phone] Social History Tobacco Use Types Packs/Day Years [...] she should go to the ED in [place]? Please review and advise. Chantel Angela 03/01/2018, 11:15 AM documented in this encounter Plan of Treatment Upcoming Encounters Date Type Specialty Care Team Description 12/02/2022 Appointment Orthopedics Donald Medley MD [facility] [address] [phone] (Babatunde billings) 12/31/2022 Appointment OrthopedicDonald Thomas MD [address] [facility] [address] [phone] (Babatunde billings) documented as of this encounter Visit Diagnoses Not on filedocumented in this encounter Care Teams Seasonal Driver Relationship Specialty Start Date End Date Jose Holden MD PCP - General Otolaryngology 12/14/17 [place] [address] documented as of this encounter
--- OUTSIDE RECORDS SUMMARY | 2022-11-06 15:23 | XMS_ITS | Encounter Summary ---
:1965 Author Organization [facility] Address [address] [place], [place] [address] [place] [address] Care Team Providers Name Role Phone Jose Holden MD Primary Care Provider [phone] Reason for Visit Reason Comments Revisit Encounter Details Date Type Department Care Team Description 08/14/2018 Office Visit [facility]ner Pete Gonzalez, Neck pain (Primary Neuroscience Center Dx) Neurosurgery/Ortho 3931 [facility] Spine S [address] [place], [place] [address] [address] [phone] Social History Tobacco Use Types Packs/Day Years [...] our Same Day Surgery center (4th floor [address] [place] [address]).prior to your next appointment. Follow up: with [...] your understanding. Please call the Neurosurgery Center [phone] with any further questions or concerns or [...] Appointment Orthopedics Donald Medley MD 1601 [facility] 200 [place], [place] [phone] (Wo rk) 12/31/2022 Appointment Orthopedics Donald Medley MD 16[address] [facility] 200 [place] [phone] (Wo rk) documented as of this encounter Visit Diagnoses Diagnosis Neck pain - Primary Cervicalgia documented in this encounter Care Teams Wire Preparation Worker Relationship Specialty Start Date End Date Jose Holden MD PCP - General Otolaryngology 12/14/17 [place] [address] documented as of this encounter
--- OUTSIDE RECORDS SUMMARY | 2022-11-06 15:23 | XMS_ITS | Encounter Summary ---
:1965 Author Organization [facility] Address [address], [place] [address] Care Team Providers Name Role Phone Jose Holden MD Primary Care Provider [phone] Encounter Details Date Type Department Care [...] Description 12/02/2022 [place] [address] [place] [phone] (Wo rk) 12/31/2022 Appointment Orthopedics Donald Medley MD 1601 [facility] 200 [place], [place] [phone] (Wo rk) documented as [...] filedocumented in this encounter Care Teams Manager Farm Relationship Specialty Start Date End Date Jose Holden MD PCP - General Otolaryngology 12/14/17 [facility] [place] [address] documented as of this encounter
--- OUTSIDE RECORDS SUMMARY | 2022-11-06 15:23 | XMS_ITS | Encounter Summary ---
:1965 Author Organization [facility] Address [address], [place] [address] Care Team Providers Name Role Phone Jose Holden MD Primary Care Provider [phone] Reason for Referral Procedure/Equipment (Routine) - Closed Specialty Diagnoses / Procedures Referred By Contact Refer red To Contact Diagnoses Neck pain Pete Gonzalez MD [address] [place] [address] Referral ID Status Reason Start Date Expiration Date Visits Requ ested Visits Authorized [id number] Closed 06/14/2018 12/11/2018 1 1 Scheduling Instructions [...] Department Care Team Description 06/14/2018 Office Visit Pete Watson, Lumbar rad iculopathy (Primary Dx); Neuroscience Center Neck pain Neurosurgery/Ortho 3931 [facility] Spine S [address] [facility] [place] [address] [place] [id number] Social History Tobacco Use Types Packs/Day Years [...] your understanding. Please call the Neurosurgery Center [phone] with any further questions or concerns or [...] Description 12/02/2022 Appointment Orthopedics Donald Medley MD [address] [facility] [address] [phone] (Babatunde billings) 12/31/2022 Appointment Donald Goldsmith MD [address] [facility] [address] [phone] (Babatunde billings) Scheduled Referrals Name Type Priority Associated Diagnoses Order S chedule Acupuncture Referral Routine Neck pain Ordered: 2017 documented as of this encounter Visit Diagnoses Diagnosis Lumbar radiculopathy - Primary Thoracic or lumbosacral neuritis or radi culitis, unspecified Neck pain Cervicalgia documented in this encounter Care Teams Tire And Lube Technician Relationship Specialty Start Date End Date Jose Holden MD PCP - General Otolaryngology 12/14/17 [facility] [place] [address] documented as of this encounter
--- OUTSIDE RECORDS SUMMARY | 2022-11-06 15:23 | XMS_ITS | Encounter Summary ---
:1965 Author Organization [facility] Address [address], [place] [address] Care Team Providers Name Role Phone Jose Holden MD Primary Care Provider [phone] Encounter Details Date Type Department Care Team Description 11/10/2018 Emergency Room External to External, Provid er FALL/HEADACHE NECK LT No address [place] [address] Social History Tobacco Use Types Packs/Day Years [...] 12/02/2022 Appointment Orthopedics Donald Medley MD [address] [phone] (Wo rk) 12/31/2022 Appointment Orthopedics Donald Medley MD [facility]01 [facility] 200 [place], [place] [phone] (Wo rk) documented as of this encounter Visit Diagnoses Not on filedocumented in this encounter Care Teams Woodworking Bench Carpenter Relationship Specialty Start Date End Date Jose Holden MD PCP - General Otolaryngology 12/14/17 [address] [facility] [place], [place] [id number] documented as of this encounter
--- OUTSIDE RECORDS SUMMARY | 2022-11-06 15:23 | XMS_ITS | Encounter Summary ---
:1965 Author Organization [facility] Address [address], [place] [address] Care Team Providers Name Role Phone Jose Holden MD Primary Care Provider [phone] Reason for Visit Reason Comments Medication Questions FYI Encounter Details Date Type Department Care Team Description 03/01/2018 Telephone [facility] Pete Gonzalez MD Medication Questions; Neuroscience Center [address] [place] [address] FY I Neurosurgery/Ortho S pine [address] [place] [address] [place] [address] [phone] (Wo rk) Social History Tobacco Use Types [...] RN - 03/01/2018 2:36 PM CDT Sirisha Maher, [place] informed and it was noted. Chava Simon [...] 12/02/2022 Appointment Orthopedics Donald Medley MD 1601 [facility] [address] [phone] (Wo rk) 12/31/2022 Appointment Orthopedics Donald Medley MD 1601 [facility] [address] [phone] (Wo rk) documented as of this encounter Visit Diagnoses Not on filedocumented in this encounter Care Teams Chemistry Intern Relationship Specialty Start Date End Date Jose Holden MD PCP - General Otolaryngology 12/14/17 [address] [place] [id number] documented as of this encounter
--- OUTSIDE RECORDS SUMMARY | 2022-11-06 15:23 | XMS_ITS | Encounter Summary ---
:1965 Author Organization [facility] Address [address], [place] [address] Care Team Providers Name Role Phone Jose Holden MD Primary Care Provider [phone] Reason for Visit Reason Comments Refill Encounter Details Date Type Department Care Team Description 03/07/2018 Telephone [facility] Neuroscience Pete Gonzalez MD Refill Center Neurosurgery/Ortho [address] [facility] Spine [place], [place] [address] [address] [place] [address] [phone] Social History Tobacco Use Types Packs/Day Years Used Date Smoking Tobacco: Every Day Cigarettes 0.5 30 Smokeless Tobacco: Never Comments: 30 year smoker on and off, 0.5 a day Alcohol Use Standard Drinks/Week Comments No 0 (1 standard drink = 0.6 oz pure alcoho l) Sex Assigned at Date Recorded Not on file documented as of this encounter Nursing Notes Mandy Howe, RN - 03/07/2018 11:36 AM CDT Pt [...] she has fallen in the past. Mandy Howe, RADHA 03/07/2018, 11:38 AM documented in this encounter Plan of Treatment Upcoming Encounters Date Type Specialty Care Team Description 12/02/2022 Appointment Orthopedics Donald Medley MD 1601 [facility] [address] [place] [phone] (Wo rk) 12/31/2022 Appointment Orthopedics Donald Medley MD 16[address] [facility] [address] [place] [phone] (Wo rk) documented as of this encounter Visit Diagnoses Not on filedocumented in this encounter Care Teams Machine Setup Operator Relationship Specialty Start Date End Date Jose Holden MD PCP - General Otolaryngology 12/14/17 [place] [address] documented as of this encounter
--- OUTSIDE RECORDS SUMMARY | 2022-11-06 15:23 | XMS_ITS | Encounter Summary ---
:1965 Author Organization [facility] Address [address] [address] Care Team Providers Name Role Phone Jose Holden MD Primary Care Provider [phone] Reason for Visit Reason Comments Revisit Bilateral cervical/thoracic trigger point injections Encounter Details Date Type Department Care Team Description 06/20/2018 Office Visit [facility] Frank Myalgia (Primary Dx); Neuroscience Center Pain RMD H/O cervical spinal arthrodesis; Management [address] Cervical vertebral fusion; [address] [place], [place] Fibromyalgia; [place] [address] Tobacco use disorder; [phone] Status post tot al left knee replacement [...] documented in this encounter Patient Instructions Patient Gillian Oneill - 06/20/2018 1:00 PM CDT Impression: Myalgia [...] medications, in ALL states. As laws can global climate change researcher time, one should review the state government [...] treatment plan is, please contact me via [employer] online messaging or call the office at [...] Oxycodone 5 mg Q6H - Prescribes by [facility], has been taking [...] at a pain clinic in the past. [facility] physical therapy: Past [...] 2017 Dr. Ihsan Brooke, [facility] past [...] facility-administered medications prior to visit. [place] and [place] Prescription Monitoring Program reviewed Allergies: [...] in her mother. Social history:she lives in [place], [place].she is not currently working. Smokin/2 ppd. [...] post total left knee replacement Barriers: 1. shelter opioid use Plan: 1. Patient education: I went over the above diagnoses and treatment plan with her and answered all of her questions. 2. Imaging review: None 3. Exercise program: Regular exercise and activity 4. Medications: No changes. Do not recommend continuous churn buttermaker opioid use, continue to decrease use until [...] Medicine Physical Medicine and Rehabilitation [facility] This document serves as a record of services personally performed by Tony Pittman MD. It was created on his behalf by Gillian Harding, a trained medical technologist generalist. The creation of this record is based [...] 12/02/2022 Appointment Orthopedics Donald Medley MD 1601 [facility] 200 [place], [place] [phone] (Wo rk) 12/31/2022 Appointment Orthopedics Donald Medley MD 1601 [facility] 200 [place], [place] [phone] (Wo rk) documented as of this encounter Visit Diagnoses Diagnosis Myalgia - Primary Mylagia and myositis, unspecified H/O cervical spinal arthrodesis Arthrodesis status Cervical vertebral fusion Klippel-Feil syndrome Fibromyalgia Mylagia and myositis, unspecified Tobacco use disorder ([facility]C) Tobacco use disorder Status post total left knee replacement documented in this encounter Care Teams Residential Advisor Relationship Specialty Start Date End Date Jose Holden MD PCP - General Otolaryngology 12/14/17 [address] [place] [address] documented as of this encounter
--- OUTSIDE RECORDS SUMMARY | 2022-11-06 15:23 | XMS_ITS | Encounter Summary ---
:1965 Author Organization [facility] Address [address], [place] [address] Care Team Providers Name Role Phone Jose Holden MD Primary Care Provider [phone] Reason for Visit Reason Onset Date Comments Refill 03/01/2018 Encounter Details Date Type Department Care Team Description 03/01/[address] [facility] Chava Simon RN Refill Neurosurgery/Ortho S [address] [address] Social History Tobacco Use Types Packs/Day [...] RN 03/01/2018, 11:58 AM Sirisha Rankin APRN, ACCOUNTING ASSISTANT - 03/01/2018 11:47 AM CDT Refill approved. Frequency has been decreased to 1-2 tabs Q4 hours as per standard weaning. Sirisha Jefferson APRN, ACCOUNTING ASSISTANT 03/01/2018, 11:49 AM Chava Simon RN - [...] pt. have a f/u appointment: 04/05/2018 Pharmacy: [facility] Chava Simon RN 03/01/2018, 11:40 AM documented in this encounter Plan of Treatment Upcoming Encounters Date Type Specialty Care Team Description 12/02/2022 Appointment Orthopedics Donald Medley MD 1601 [facility] 200 [place], [place] [phone] (Wo rk) 12/31/2022 Appointment Orthopedics Donald Medley MD 1601 [facility] 200 [place], [place] [phone] (Wo rk) documented as of this encounter Visit Diagnoses Not on filedocumented in this encounter Care Teams Sterile Supply Technician Relationship Specialty Start Date End Date Jose Holden MD PCP - General Otolaryngology 12/14/17 [place] [address] documented as of this encounter
--- OUTSIDE RECORDS SUMMARY | 2022-11-06 15:23 | XMS_ITS | Encounter Summary ---
:1965 Author Organization [facility] Address [address] [place] [address] Care Team Providers Name Role Phone Jose Holden MD Primary Care Provider Reason for Visit Reason Comments Revisit occipital nerve block Encounter Details Date Type Department Care Team Description 07/10/2018 Office Visit [facility] Frank occipital neuralgia (Primary Dx); Neuroscience Center Raul Alvarado MD Myalgia; Management [address] H/O cervical spinal arthrodesis [address] [place] [address] [phone] Social History Tobacco Use Types Packs/Day Years [...] encounter Patient Instructions Patient InstructionsGillian Harding - 07/10/2018 3:45 PM CDT Impression: Bilateral [...] treatment plan is, please contact me via [employer] online messaging or call the office at [...] 5 mg Q6H - Prescribes by [facility], has been taking [...] a pain clinic in the past. [facility] physical therapy: Past [...] anterior cervical fusion 2017 Dr. Ihsan Brooke, [facility] & [...] ??? medical cannabis patient certified Take 1 [place] by mouth . ??? naloxone (NARCAN) 4 [...] facility-administered medications prior to visit. [place] and [place] Prescription Monitoring Program reviewed Allergies: [...] in her mother. Social history:she lives in [place], [place].she is not currently working. Smokin/2 ppd. [...] of occipital nerve block today Barriers: 1. [facility] opioid use Plan: 1. Patient education: I [...] by Gillian Harding, a trained medical laboratory technician. The creation of this record is based on the scribe's personal observations and the provider's statements to her. The document has been checked and approved by the attending provider. documented in this encounter Plan of Treatment Upcoming Encounters Date Type Specialty Care Team Description 12/02/2022 Appointment Orthopedics Donald Medley MD 1601 [facility] 200 [place], [place] [phone] (Wo manuelito) 12/31/2022 Appointment Orthopedics Donald Medley MD [address] [facility] [address] [place] [phone] (Wo manuelito) documented as of this encounter Visit Diagnoses Diagnosis Bilateral occipital neuralgia - Primary Myalgia Mylagia and myositis, unspecified H/O cervical spinal arthrodesis Arthrodesis status documented in this encounter Care Teams Loadmaster Relationship Specialty Start Date End Date Jose Holden MD PCP - General Otolaryngology 12/14/17 [address] [place] [address] documented as of this encounter
--- OUTSIDE RECORDS SUMMARY | 2022-11-06 15:23 | XMS_ITS | Encounter Summary ---
:1965 Author Organization [facility] Address [address], [place] [address] Care Team Providers Name Role Phone Jose Holden MD Primary Care Provider [phone] Reason for Visit Reason Comments QUESTIONS, GENERAL Encounter Details Date Type Department Care Team Description 02/24/2018 Telephone [facility] Pete Gonzalez MD QUESTIONS, GENERAL [facility]Ortho S [place], [place] [address] [address] [place] [address] [phone] Social History Tobacco Use Types Packs/Day Years [...] currently doing PT which was ordered through [facility] for her shoulder. She is worried [...] 12/02/2022 Appointment Orthopedics Donald Medley MD 1601 [facility] 200 [place] [phone] (Wo rk) 12/31/2022 Appointment Orthopedics Donald Medley MD 1601 [facility] [address] [place] [phone] (Wo rk) documented as of this encounter Visit Diagnoses Not on filedocumented in this encounter Care Teams City Tax Auditor Relationship Specialty Start Date End Date Jose Holden MD PCP - General Otolaryngology 12/14/17 [facility] [place] [address] documented as of this encounter
--- OUTSIDE RECORDS SUMMARY | 2022-11-06 15:23 | XMS_ITS | Encounter Summary ---
:1965 Author Organization [facility] Address [address] [place] [address] Care Team Providers Name Role Phone Jose Holden MD Primary Care Provider [phone] Encounter Details Date Type Department Care Team Description 06/29/2018 [facility] Procedure/Treat Neuroscience Center Tony Alvarado MD FOR TX/PROCEDURE ent Pain Management [address] [place] [id number] Social History Tobacco Use Types Packs/Day Years [...] 12/02/2022 Appointment Orthopedics Donald Medley MD 1601 [facility] 200 [place], [place] [phone] (Wo rk) 12/31/2022 Appointment Orthopedics Donald Medley MD 1601 [facility] 200 [place], [place] [phone] (Wo rk) documented as of this encounter Visit Diagnoses Not on filedocumented in this encounter Care Teams Salesperson Florist Supplies Relationship Specialty Start Date End Date Jose Holden MD PCP - General Otolaryngology 12/14/17 [place] [address] documented as of this encounter
--- OUTSIDE RECORDS SUMMARY | 2022-11-06 15:23 | XMS_ITS | Encounter Summary ---
:1965 Author Organization [facility] Address [address] [place] [address] Care Team Providers Name Role Phone Jose Holden MD Primary Care Provider [phone] Encounter Details Date Type Department Care Team Description 11/10/2018 Orders Only External to No Primary/Referring, Phy [...] 12/02/2022 Appointment Orthopedics Donald Medley MD 1601 [facility] 200 [place] [address] [phone] (Wo rk) 12/31/2022 Appointment Orthopedics Donald Medley MD 1601 [facility] 200 [place], [place] [phone] (Wo rk) documented as of this encounter Procedures Procedure Name Priority Date/Time Associated Diagnosis Comme nts CT HEAD 11/10/2018 12:00 AM Results for this PAIRER ODDS procedure are i n the results section . documented in this encounter Results CT HEAD (11/10/2018 12:00 AM PAIRER ODDS) Anatomical Region Laterality Modality Other Specimen (Source) Anatomical Location Collection Method / Collectio n Time Received Time / Laterality Volume 11/10/2018 Narrative This result has an attachment that is no t available. Phy No Primary/Referring DUMMY/OTHER/AR documented in this encounter Visit Diagnoses Not on filedocumented in this encounter Care Teams Development Trainer Relationship Specialty Start Date End Date Jose Holden MD PCP - General Otolaryngology 12/14/17 [facility] [place] [address] documented as of this encounter
--- OUTSIDE RECORDS SUMMARY | 2022-11-06 15:23 | XMS_ITS | Encounter Summary ---
:1965 Author Organization [facility] Address [address], [place] [address] Care Team Providers Name Role Phone Jose Holden MD Primary Care Provider [phone] Reason for Visit Reason Comments Injection Encounter Details Date Type Department Care Team Description 09/04/2018 [facility] Pete Gonzalez MD Injection Center Neurosurgery/Ortho [address] [facility] Spine [place], [place] [address] [address] [place] [address] [phone] Social History Tobacco Use Types Packs/Day Years [...] 09/05/2018 10:13 AM CDT Per Sirisha Maher, [place]AL[place]NA: cannot write letter. Okay for repeat bilateral [...] 12/02/2022 Appointment Orthopedics Donald Medley MD 1601 [facility] [address] [phone] (Wo manuelito) 12/31/2022 Appointment OrthopedicDonald Thomas MD [address] [facility] [address] [phone] (Wo rk) documented as of this encounter Visit Diagnoses Diagnosis Neck pain - Primary Cervicalgia documented in this encounter Care Teams Director Sports Relationship Specialty Start Date End Date Jose Holden MD PCP - General Otolaryngology 12/14/17 [place] [address] documented as of this encounter
--- OUTSIDE RECORDS SUMMARY | 2022-11-06 15:23 | XMS_ITS | Encounter Summary ---
:1965 Author Organization Formerly [facility] Address [address], [place] [address] Care Team Providers Name Role Phone Jose Holden MD Primary Care Provider [phone] Reason for Visit Procedure/Equipment (Routine) - Incomplete Specialty Diagnoses / Procedures Referred By Contact Refer red To Contact Diagnoses S/P cervical spinal fusion Sirisha Rankin, Procedures XR Cervical Spine AP/Lat Upright DEVELOPING MACHINE TENDER, GRAIN ORIGINATION SPECIALIST [address] [place] [address] Referral ID Status Reason Start Date Expiration Date Visits V isits Requested Authorized [id number] Incomplete 04/05/2018 07/05/2019 1 1 Encounter Details Date Type Department Care Team Description 06/14/2018 [facility] Sneha Maher, S[facility] Sirisha Celaya, APR N, GRAIN ORIGINATION SPECIALIST fusion Radiology [address] [place] [address] [place] [address] [phone] Social History Tobacco Use Types Packs/Day Years [...] 12/02/2022 Appointment Orthopedics Donald Medley MD 1601 [facility] [address] [place] [phone] (Wo rk) 12/31/2022 Appointment Orthopedics Donald Medley MD [address] [facility] [address] [address] [...] CDT Narrative 06/14/2018 5:54 PM CDT [facility] XR CERVICAL SPINE AP/LAT UPRIGHT [...] might be different from the original. [facility] XR CERVICAL SPINE AP/LAT UPRIGHT [...] soft tissue swelling. Remainder unchanged. Sirisha Maher DEVELOPING MACHINE TENDER, GRAIN ORIGINATION SPECIALIST RAD GD documented in this encounter Visit Diagnoses Diagnosis S/P cervical spinal fusion Arthrodesis status documented in this encounter Care Teams Fashion Stylist Relationship Specialty Start Date End Date Jose Holden MD PCP - General Otolaryngology 12/14/17 [address] [place] [address] documented as of this encounter
--- OUTSIDE RECORDS SUMMARY | 2022-11-06 15:23 | XMS_ITS | Encounter Summary ---
:1965 Author Organization [facility] Address [address] [place] [address] Care Team Providers Name Role Phone Jose Holden MD Primary Care Provider [phone] Encounter Details Date Type Department Care Team [...] Description 12/02/2022 App[place] [address] [place] [address] [address] [place] [address] [phone] (Wo rk) 12/31/2022 Appointment Orthopedics Donald Medley MD 1601 [facility] 200 [place], [place] [phone] (Wo rk) documented as of this encounter Procedures Procedure Name Priority Date/Time Associated Diagnosis Comme nts CT SCAN SPINE--SCAN 11/10/2018 12:00 AM R esults for this EXHAUST AND MUFFLER FITTER procedure are i n the results section. documented in this encounter Results CT SCAN SPINE--SCAN (11/10/2018 12:00 AM EXHAUST AND MUFFLER FITTER) Anatomical Region Laterality Modality Other Specimen (Source) Anatomical Location Collection Method / Collectio n Time Received Time / Laterality Volume 11/10/2018 Narrative This result has an attachment that is no t available. Phy No Primary/Referring DUMMY/OTHER/AR documented in this encounter Visit Diagnoses Not on filedocumented in this encounter Care Teams Package Clerk Relationship Specialty Start Date End Date Jose Holden MD PCP - General Otolaryngology 12/14/17 [facility] [place] [address] documented as of this encounter
--- OUTSIDE RECORDS SUMMARY | 2022-11-06 15:23 | XMS_ITS | Encounter Summary ---
:1965 Author Organization [facility] Address [address] [place] [address] Care Team Providers Name Role Phone Jose Holden MD Primary Care Provider [phone] Encounter Details Date Type Department Care Team Description 08/14/2018 [facility]Treat [facility] Tony Alvarado MD FOR TX/PROCEDURE ent Pain Management [address] [place] [phone] Social History Tobacco Use Types Packs/Day Years [...] Medley MD 1601 [facility] 200 [place], [place] [phone] (Wo rk) 12/31/2022 Appointment Orthopedics Donald Medley MD 1601 [facility] 200 [place], [place] [phone] (Wo rk) documented as of this encounter Visit Diagnoses Not on filedocumented in this encounter Care Teams Dice Spotter Relationship Specialty Start Date End Date Jose Holden MD PCP - General Otolaryngology 12/14/17 [place] [address] documented as of this encounter
--- OUTSIDE RECORDS SUMMARY | 2022-11-06 15:23 | XMS_ITS | Encounter Summary ---
:1965 Author Organization [facility] Address [address] [place] [address] Care Team Providers Name Role Phone Jose Holden MD Primary Care Provider [phone] Encounter Details Date Type Department Care Team Description 07/10/[facility]Treat [facility] Tony Alvarado MD FOR TX/PROCEDURE ent Pain Management [address] [place] [phone] Social History Tobacco Use Types Packs/Day Years [...] 12/02/2022 Appointment Orthopedics Donald Medley MD 1601 [facility] 200 [place], [place] [phone] (Wo rk) 12/31/2022 Appointment Orthopedics Donald Medley MD 1601 [facility] 200 [place], [place] [phone] (Wo rk) documented as of this encounter Visit Diagnoses Not on filedocumented in this encounter Care Teams Fruit And Vegetable Factory Worker Relationship Specialty Start Date End Date Jose Holden MD PCP - General Otolaryngology 12/14/17 [place] [address] documented as of this encounter
--- OUTSIDE RECORDS SUMMARY | 2022-11-06 15:23 | XMS_ITS | Encounter Summary ---
:1965 Author Organization [facility] Address [address] [address] Care Team Providers Name Role Phone Jose Holden MD Primary Care Provider [phone] Reason for Visit Reason Comments UPDATE Pain Encounter Details Date Type Department Care Team Description 06/22/2018 Telephone [facility] Neuroscience Gume Pittman, UPDATE; Pain Center Pain Manageri kole FAULKNER [address] [place] [address] [place] [address] [phone] (Wo rk) Social History Tobacco Use Types [...] Arenas RN - 06/26/2018 10:02 AM CDT Automotive Production Worker called patient, notified info below. Automotive Production Worker offered patient appt today however she [...] returned post TPI's from 3 days ago. Automotive Production Worker called patient, she states the day [...] post total left knee replacement ??Barriers: 1. custodial opioid use ??Plan: 1. Patient education: I went over the above diagnoses and treatment plan with her and answered all of her questions. 2. Imaging review: None 3. Exercise program: Regular exercise and activity 4. Medications: No changes. Do not recommend fdc opioid use, continue to decrease use until [...] Rehabilitation [facility] Pain Management. Obi Echeverria - 06/22/2018 4:29 [...] Care Team Description 12/02/2022 Appointment Orthopedics Donald Mdeley MD 1601 [facility] 200 [place], [place] [phone] (Wo rk) 12/31/2022 Appointment Orthopedics Donald Medley MD [address] [facility] [address] [place], [place] [phone] (Wo rk) documented as of this encounter Visit Diagnoses Not on filedocumented in this encounter Care Teams Human Resource Analyst Relationship Specialty Start Date End Date Jose Holden MD PCP - General Otolaryngology 12/14/17 [place] [address] documented as of this encounter
--- OUTSIDE RECORDS SUMMARY | 2022-11-06 15:24 | XMS_ITS | Encounter Summary ---
:1965 Author Organization [facility] Address [address] [place] [address] Care Team Providers Name Role Phone Jose Holden MD Primary Care Provider [phone] Encounter Details Date Type Department Care Team Description 02/13/2018 Orders Only External to External, [place] [address] Social History Tobacco Use Types Packs/Day Years [...] 12/02/2022 Appointment Orthopedics Donald Medley MD 1601 [facility] [address] [place] [address] [phone] (Wo rk) 12/31/2022 Appointment Orthopedics Donald Medley MD 1601 [facility] 200 [place], [place] [phone] (Wo rk) documented as [...] on filedocumented in this encounter Care Teams Oyster Bed Worker Relationship Specialty Start Date End Date Jose Holden MD PCP - General Otolaryngology 12/14/17 [place] [address] documented as of this encounter
--- OUTSIDE RECORDS SUMMARY | 2022-11-06 15:24 | XMS_ITS | Encounter Summary ---
:1965 Author Organization [facility] Address [address] [place] [address] Care Team Providers Name Role Phone Jose Holden MD Primary Care Provider Encounter Details Date Type Department Care Team Description 02/13/2018 Orders Only External to No Primary/Referring, Phy [...] Medley MD 1601 [facility] 200 [place], [place] [phone] (Wo rk) 12/31/2022 Appointment Orthopedics Donald Medley MD 1601 [facility] 200 [place], [place] [phone] (Wo rk) documented as [...] filedocumented in this encounter Care Teams Station Attendant Relationship Specialty Start Date End Date Jose Holden MD PCP - General Otolaryngology 12/14/17 [place] [address] documented as of this encounter
--- OUTSIDE RECORDS SUMMARY | 2022-11-06 15:24 | XMS_ITS | Encounter Summary ---
:1965 Author Organization [facility] Address [address] [place] [address] Care Team Providers Name Role Phone Jose Holden MD Primary Care Provider [phone] Reason for Visit Auth/Cert Specialty Diagnoses / [...] Expiration Date Visits Requ ested Visits Authorized [id number] 1 1 Encounter Details Date Type Department Care Team Description 02/20/2018 Imaging [facility] Pete Gonzalez MD [address] [place] [address] [place] [address] [phone] (Babatunde billings) Social History Tobacco Use Types [...] Appointment Orthopedics Donald Medley MD 1601 [facility] 200 [place], [place] [phone] (Wo rk) 12/31/2022 Appointment Orthopedics Donald Medley MD 1601 [facility] [address] [phone] (Wo [...] 2:06 PM CDT Fluoroscopy provided by a electronic technologist. Exact fluoroscopy time is documented in end of exam information in EPIC Pete Gonzalez MD RAD GD documented in this encounter Visit Diagnoses Not on filedocumented in this encounter Care Teams Exhibits Curator Relationship Specialty Start Date End Date Jose Holden MD PCP - General Otolaryngology 12/14/17 [place] [address] documented as of this encounter
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
--- OUTSIDE RECORDS SUMMARY | 2022-11-06 15:24 | XMS_ITS | Encounter Summary ---
:1965 Author Organization [facility] Address [address] [place] [address] Care Team Providers Name Role Phone Jose Holden MD Primary Care Provider [phone] Reason for Visit Auth/Cert Specialty Diagnoses / [...] Expiration Date Visits Requ ested Visits Authorized [id number] 1 1 Encounter Details Date Type Department Care Team Description 02/20/2018 Imaging [facility] Pete Gonzalez MD [address] [place] [address] [place] [address] [phone] (Babatunde billings) Social History Tobacco Use Types [...] 12/02/2022 Appointment Orthopedics Donald Medley MD 1601 [facility] 200 [place], [place] [phone] (Wo rk) 12/31/2022 Appointment Orthopedics Donald Medley MD 1601 [facility] [address] [place] [phone] [...] on filedocumented in this encounter Care Teams Optical Model Maker And Tester Relationship Specialty Start Date End Date Jose Holden MD PCP - General Otolaryngology 12/14/17 [address] [place] [address] documented as of this encounter
--- OUTSIDE RECORDS SUMMARY | 2022-11-06 15:24 | XMS_ITS | Encounter Summary ---
:1965 Author Organization [facility] Address [address], [place] [address] Care Team Providers Name Role Phone Jose Holden MD Primary Care Provider [phone] Encounter Details Date Type Department Care Team Description 02/13/2018 Orders Only External to Jose Holden MD [address] [place], [place] [address] (Wo rk) Social History [...] 12/02/2022 Appointment Orthopedics Donald Medley MD 1601 [facility] [address] [place] [address] [phone] (Wo rk) 12/31/2022 Appointment Orthopedics Donald Medley MD 1601 [facility] 200 [place], [place] [phone] (Wo rk) documented as [...] an attachment that is no t available. oJse Holden MD LAB_1 documented in this encounter Visit Diagnoses Not on filedocumented in this encounter Care Teams Marker Machine Attendant Relationship Specialty Start Date End Date Jose Holden MD PCP - General Otolaryngology 12/14/[address] [place], [place] [address] [address] documented as of this encounter
--- OUTSIDE RECORDS SUMMARY | 2022-11-06 15:24 | XMS_ITS | Encounter Summary ---
:1965 Author Organization [employer] Address [address] [place] [address] Care Team Providers Name Role Phone Jose Holden MD Primary Care Provider [phone] Reason for Visit Auth/Cert Specialty Diagnoses / [...] Expiration Date Visits Requ ested Visits Authorized [id number] 1 1 Encounter Details Date Type Department Care Team Description 02/20/2018 Imaging [facility] Pete Gonzalez MD [address] [place] [address] [place] [address] [phone] (Babatunde billings) Social History Tobacco Use Types [...] 12/02/2022 Appointment Orthopedics Donald Medley MD 1601 [facility] 200 [place], [place] [phone] (Wo rk) 12/31/2022 Appointment Orthopedics Donald Medley MD 1601 [facility] 200 [place] [phone] (Wo rk) documented as of this encounter Visit Diagnoses Not on filedocumented in this encounter Care Teams Electronic Video Games Servicer Relationship Specialty Start Date End Date Jose Holden MD PCP - General Otolaryngology 12/14/17 [facility] [place] [phone] documented as of this encounter
--- OUTSIDE RECORDS SUMMARY | 2022-11-06 15:24 | XMS_ITS | Encounter Summary ---
:1965 Author Organization [facility] Address [address], [place] [address] Care Team Providers Name Role Phone Jose Holden MD Primary Care Provider [phone] Reason for Visit Reason Comments CONSULT POPC-dos 02-20 w/Dr Gonzalez Encounter Details Date Type Department Care Team Description 02/13/2018 Office Visit Stew Mcghee [facility] Raul Stover MD cervical region Management [address] without myelopathy or [address] [place], [place] radiculopathy ([place] [address] Dx) [phone] Social History Tobacco Use Types Packs/Day Years [...] documented in this encounter Patient Instructions Patient InstructionsMarStew dupree MD - 02/13/2018 10:30 AM CDT We [...] some medicines that are opioids: ??? Hydrocodone (Central, Vicodin, Lortab) ??? Oxycodone (OxyContin, Percocet) ??? [...] before you use any other medicines, including popm-lrr-ohamndb medicines. Make sure my care team knows [...] team or apharmacist. You can also visit [employer] or [employer] and search medicine disposalto learn about drug disposal. You may also call the Drug Enforcement Administration (BARBY) Office of Diversion Control's Registration Call Center at to find an authorized payment collector in your community. ??? If your [...] Content Version: 10.9 Custom: HP/PN 6-16 ?? [id number] [employer]. Stew Covarrubias MD documented in this encounter Progress Notes Stew Covarrubias MD - 02/13/2018 10:30 AM CDT Images from the original note were not included. I had the pleasure of meeting Ms. Angie Mosquera on 02/13/2018 in the outpatient pain clinic in consult for Dr. Henao ref. provider found with regards to her Postoperative [...] experiences A lot of 'bad' surgeries in [place] Past Medical History: Diagnosis Date ??? Acne ??? Allergy ??? Anxiety disorder (HRC) ??? Arthritis ??? Asthma (HRC) ??? Bipolar 1 disorder (HRC) ??? COPD (chronic obstructive pulmonary disease) (HRC) ??? Depression (HRC) ??? Ear infection ??? Infection of the inner ear, left ? ? Nausea & vomiting ??? Sinusitis No past surgical history on file. 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 Adhesive [...] surgery Recommendations for opioids: If using a HAND II THERMAL CUTTER: No oral opioids Start a HAND II THERMAL CUTTER pump with Dilaudid continuous IV infusion at a basal rate of 0.1 mg/hr with HAND II THERMAL CUTTER boluses of 0.2-0.4 mg every 10 minutes. If not using a HAND II THERMAL CUTTER: Start dilaudid 2-4mg q3h prn (alternatively can [...] 12/02/2022 Appointment Orthopedics Donald Medley MD [facility]01 [facility] [address] [place] [phone] (Wo rk) 12/31/2022 Appointment Orthopedics Donald Medley MD [address]01 [facility] [address] [place] [phone] (Wo rk) documented as of this encounter Visit Diagnoses Diagnosis Spondylosis of cervical region without m yelopathy or radiculopathy (HRC) - Primary Cervical spondylosis without myelopathy documented in this encounter Care Teams Armored Machine Operator Relationship Specialty Start Date End Date Jose Holden MD PCP - General Otolaryngology 12/14/17 [address] [place], [place] [phone] documented as of this encounter
--- OUTSIDE RECORDS SUMMARY | 2022-11-06 15:24 | XMS_ITS | Encounter Summary ---
:1965 Author Organization [facility] Address [address], [place] [address] Care Team Providers Name Role Phone Jose Holden MD Primary Care Provider [phone] Encounter Details Date Type Department Care Team Description 02/14/2018 Telephone [facility] Neuroscience Chava Simon RN [facility] [address] [place] [phone] Social History Tobacco Use Types Packs/Day Years [...] surgery. Chava Simon RN 02/14/2018, 3:19 PM Hang, You X - 02/14/2018 10:04 AM CDT Patient calling in to verify if we have received her preop yet. Insulation Manager relayed we have not. Patient was given [phone] to have preop be faxed to us. Patient states she already talked to them and they said they already sent it but she will reach out to them again. Will await a return call from patient/watch out for fax. Michael Cruz 02/14/2018, 10:06 AM Chava Simon RN - 02/14/2018 9:11 AM CDT I still have not received patient's preop from [facility]. Could you please call patient and make sure she has had it faxed to us? Chava Simon RN 02/14/2018, 9:11 AM documented in this encounter Plan of Treatment Upcoming Encounters Date Type Specialty Care Team Description 12/02/2022 Appointment Orthopedics Donald Medley MD 1601 [facility] [address] [place], [place] [phone] (Wo rk) 12/31/2022 Appointment Orthopedics Donald Medley MD [address] [facility] [address] [place] [phone] (Wo rk) documented as of this encounter Visit Diagnoses Not on filedocumented in this encounter Care Teams Master [place] Relationship Specialty Start Date End Date Jose Holden MD PCP - General Otolaryngology 12/14/17 [facility] [place] [address] documented as of this encounter
--- OUTSIDE RECORDS SUMMARY | 2022-11-06 15:24 | XMS_ITS | Encounter Summary ---
:1965 Author Organization [employer] Address [address], [place] [address] Care Team Providers Name Role Phone Jose Holden MD Primary Care Provider [phone] Reason for Visit Auth/Cert Specialty Diagnoses / [...] Expiration Date Visits Requ ested Visits Authorized [id number] 1 1 Encounter Details Date Type Department Care Team Description 02/20/2018 Surgery RH Operating Room Marky Gonzalez MD FUSION POSTERIOR [address] APPROACH [place] [address] [place], [place] C2-T3, REMOVAL HARDWARE [phone] [address] SPINE Anterior plate [phone] (Wo rk) and Posterior screws and rods [...] encounter Discharge Summaries Sneha Maher, Sirisha Celaya, CAKE FORMER, EMERGENCY RESPONSE OFFICER - 02/23/2018 9:09 AM CDT Neurosurgery Discharge [...] Hospital Course: Angie Bender was admitted to [facility] on 02/20/2018 following posterior C2-T3 with Dr. [...] 9.4 - 12.4 fl Narrative Performed at [facility], [address] [place] [address] Physical Exam: BP 124/78 Pulse 74 Temp [...] in strength to your extremeties. Neurosurgery clinic [phone]. If it is after hours, please call [...] neurosurgery RN on 03/07 at 11AM at [address] [place] [address], 2nd floor. 2. Follow up with Dr. Gonzalez/Lois Pham PA-C/Sirisha Maher NP on 04/05 at 1:00PM at [address] [place] [address]. Patient also instructed to call clinic at [phone] or hospital for any questions or concerns. Patient verbalizes understanding and states no further questions at this time. 3. Follow up with PCP for any medical issues Total time spent at the time of discharge was 30 minutes Sirisha Maher APRN, CNP Pgr#[phone] documented in this encounter Discharge Instructions Discharge InstructionsLethert, Donna J, RN - 02/23/2018 10:42 AM CD[place] [address] General Information Discharging physician: Dr. Gonzalez [facility] Resources Emergency & Urgently Needed Care: For emergencies call 911 and/or get medical help right away. If you are a [facility] member and have medical needs after clinic hours you may call the [facility] [phone] or . Fall Prevention Recommendations ??? Follow [...] MG Take 1 Tab by mouth 0 03 / tabletIndications: two times a day. Urticaria Indications: [...] Ellis RN - 02/23/2018 11:[address] [facility] Discharge Note - Nursing Admission [...] End of Report --- Sirisha Rankin APRN, EMERGENCY RESPONSE OFFICER - 02/23/2018 9:02 AM CDT Neurosurgery Progress [...] Dc home today ?? Sirisha Maher APRN, EMERGENCY RESPONSE OFFICER 02/23/2018, 9:02 AM Neurosurgery Pgr#[phone] Jolene Kaur PA-C - 02/22/2018 12:45 PM [...] Lois Pham PA-C, 02/22/2018, 9:05 AM Neurosurgery [phone] He Reyes MD - 02/22/2018 8:29 AM CDT Images from the original note were not included. [facility] Inpatient Pain Management Consultation Follow up DATE [...] with any questionsor concerns. He Reyes M.D. [facility] Pain Management [phone] INTERVAL HISTORY: She started tizanidine last night [...] 20 mg 20 mg Oral Daily Jolene Karu PA-C 20 mg at 02/22/18 0743 ??? [...] Daily Jolene Kaur PA-C 5 mg at 02/22/1844 ??? lurasidone (LATUDA) tablet 80 mg 80 [...] 02/22/18 0743 Current Outpatient Prescriptions Ordered in [facility] Medication Sig Dispense Refill ??? sennosides-docusate [...] TIME SPENT: 35 minutes including 50% time [id number]-sb-wipg time counseling her about her diagnosis and treatment options, and coordinating care with the primary team. DECISION-MAKING: The level of decision-making in this case is high/complex due to the complexity of medical problems, acute/chronic pain, opioid analgesia issues, and behavioral factors. He Reyes M.D. Brooklyn Whittington - 02/21/2018 1:47 PM CDT [facility] Care Management Screening Admission Info: Cognitive [...] Estephanie Franz at [facility]. No DC needs anticipated. I verified the demographics on the face sheet for the correct address, phone number, emergency contact and PCP information. Brooklyn Whittington RN CM [phone] Lois Pham PA-C - 02/21/2018 9:23 AM CDT Neurosurgery Progress Note Date of service: 02/21/2018 Subjective: Feels sore. Upset she did not have MARKETING COORDINATOR overnight. Wants to go smoke. Wants to [...] there were a couple of options including MARKETING COORDINATOR vs IV pain medications for post op pain control, and rationale for non MARKETING COORDINATOR at this time. Did discuss that would not recommend DC as drain still has high output. Upright xrays prior to DC Up with assistance Continue hemovac until <30/shift Soft collar when OOB, PRN in bed for comfort PT/OT Dispo: Anticipate home in next 1-2 days pending drain output Lois Pham PA-C, 02/21/2018, 9:23 AM Neurosurgery [phone] He Reyes MD - 02/20/2018 1:20 PM CDT Note from Dr. Covarrubias on 02/13/18: ? 1. On the day of surgery please order an Inpatient pain consult 2. Ketamine 5mg/h during surgery ?? Recommendations for opioids: ?? If using a MARKETING COORDINATOR: No oral opioids Start a MARKETING COORDINATOR pump with Dilaudid continuous IV infusion at a basal rate of 0.1 mg/hr with MARKETING COORDINATOR boluses of 0.2-0.4 mg every 10 minutes. ?? If not using a MARKETING COORDINATOR: Start dilaudid 2-4mg q3h prn (alternatively can [...] Pham PA-C - 02/20/2018 3:24 PM CDT [facility] Brief Operative Progress Note Surgery Date: 02/20/2018 Surgeon(s) and Role: * Marky Gonzalez MD - Primary PHYSICIAN GAS ATTENDANT-Meka Pham Pre-op Diagnosis: * Cervical spondylosis with [...] The procedure was medically necessary for an magistrate assistant because Dr. Gonzalez needed the operative [...] Lois Pham PA-C, 02/20/2018, 3:25 PM Neurosurgery [phone] Marky Gonzalez MD - 02/20/2018 12:00 AM CDT [facility]: [id number] OPERATIVE REPORT DATE OF SURGERY: 02/20/2018 : 1965 SURGEON: MARKY GONZALEZ MD GAS ATTENDANT: Lois Pham PA-C. PREOPERATIVE DIAGNOSES: 1. Status [...] stepwise fashion using absorbable suture. We placed [employer] tongs and then flipped the patient prone [...] all critical portions. MARKY GONZALEZ MD MMK/MODL /[id number] cc: MARKY GONZALEZ MD documented in this [...] the risk. She has been on these director long term care, desires to eventually come off. She also [...] with any questionsor concerns. He Reyes M.D. [facility] Pain Management [phone] HISTORY OF PRESENT ILLNESS: Per Chart Review: [...] headache Opioid prescriber: Rosetta Martin-LEDY Jerry MD-valium [facility] database review: Risk Factors: History of [...] CURRENT MEDICATIONS: Current Facility-Administered Medications Ordered in [facility] Medication Dose Route Frequency Provider Last [...] Lois Pham PA-C ??? glucose-ascorbic acid (aka [id number]) chewable tablet 4 Tab 4 Tab Oral [...] Daily Lois Pham PA-C 17 g at 02/21/18738 ??? pregabalin (LYRICA) capsule 150 mg 150 [...] TIME SPENT: 70 minutes including 50% time [id number]-vi-vxst time counseling her about her diagnosis and treatment options, and coordinating care with the primary team. DECISION-MAKING: The level of decision-making in this case is high/complex due to the complexity of medical problems, acute/chronic pain, opioid analgesia issues, and behavioral factors. documented in this encounter Miscellaneous Notes OR Nursing - Monica Pate RN - 02/20/2018 2:[address] [facility] Progress Note Patient Name: Angie Bender Date of : 1965 8 screws, 6 caps, and 1 plate removed from cervical spine and sent to reprocessing to be returned topatient. Monica Pate RN 02/20/2018 at 2:49 PM documented in this encounter Plan of Treatment Upcoming Encounters Date Type Specialty Care Team Description 12/02/2022 Appointment Orthopedics Donald Medley MD [address] [facility] [address] [place] [phone] (Wo rk) 12/31/2022 Appointment Orthopedics Donald Medley MD [address] [facility] [address] [place], [place] [phone] (Wo rk) Scheduled Referrals Name Type Priority [...] failure. Anatomic alignment. Shoulder prosthesis. Sirisha Maher CAKE FORMER, EMERGENCY RESPONSE OFFICER RAD GD (ABNORMAL) Complete Blood Count-No Diff (02/22/2018 12:36 PM CDT) P athologist Signature WBC 10.2 4.0 - 11.0 [facility] RBC 3.36 (L) 4.0 - 5.2 [facility] Hemoglobin 11.1 (L) 12.0 - 16.0 [facility] HCT 33.2 (L) 36.0 - 46.0 [facility] % [facility] MCV 98.8 80 - 100 fl [facility] MCH 33.0 26 - 34 pg [facility] MCHC 33.4 32 - 36 [facility] RDW 14.4 11.5 - 14.5 [facility] Platelets 183 150 - 450 [facility] k/ul HOSPITAL MPV 10.6 9.4 - 12.4 [facility]OSPITAL Specimen Anatomical Collection Method Collection Time Receive d Time (Source) Location / / Volume Laterality 02/22/2018 12:36 02/22/2018 PM CDT 12:37 PM CDT Narrative [facility] - 02/22/2018 12:46 PM C DT Performed at [facility] , [address] [place] [address] Lois Pham PA-C LAB_1 Performing Organization Address City/State/ZIP Code Phon e Number [address] [address], [facility] [phone] XR Cervical Spine AP/Lat Upright (02/21/2018 9:50 [...] Organization Address City/State/[place] [address] [place] [address], [facility] [phone] (ABNORMAL) Basic Metabolic Panel (02/21/2018 7:12 AM [...] Est., If >60 >60 [facility] ml/min/1.7 [facility]OSP[facility] 3m2 Specimen Anatomical Collection Method Collection Time Receive d Time (Source) Location / / Volume Laterality 02/21/2018 7:12 AM 8 7:13 CDT AM CDT Narrative [facility] - 02/21/2018 7:47 AM CD T Performed at [facility] , [address] [place] [address] Lois Pham PA-C LAB_1 Performing Organization Address [facility] Phon e Number [address] [address], [facility] (ABNORMAL) Hemogram with Plts (02/21/2018 7:12 AM CDT) athologist Signature WBC 10.0 4.0 - 11.0 [facility] RBC 3.29 (L) 4.0 - 5.2 [facility] Hemoglobin 10.7 (L) 12.0 - 16.0 [facility] g/dl [facility] HCT 32.2 (L) 36.0 - 46.0 [facility] MCV 97.9 80 - 100 fl [facility] MCH 32.5 26 - 34 pg [facility] MCHC 33.2 32 - 36 [facility] g/dl [facility] RDW 13.9 11.5 - 14.5 [facility] Platelets 186 150 - 450 [facility] MPV 10.3 9.4 - 12.4 [facility] Specimen Anatomical Collection Method Collection Time Receive d Time (Source) Location / / Volume Laterality 02/21/2018 7:12 AM 8 7:13 CDT AM CDT Narrative [facility] - 02/21/2018 7:26 AM CD T Performed at [facility] , [address] [place] [address] Lois Pham PA-C LAB_1 Performing Organization Address City/[facility] Phon e Number [address] [address] [place] [address], [facility] [phone] Glucose, Whole Blood POC (02/20/2018 11:20 PM CDT) athologist Signature Glucose, Whole 140 70 - 180 [facility] Blood mg/dl HOSPITAL Comment: Point of Care Testing No Action Required Specimen Anatomical Collection Method Collection Time Receive d Time (Source) Location / / Volume Laterality 02/20/2018 11:20 02/20/2018 PM CDT 11:26 PM CDT Marky Gonzalez MD LAB_1 Performing Organization Address [facility]/ZIP [facility] Phon e Number [address] [address], [facility] Glucose, Whole Blood POC (02/20/2018 5:05 PM CDT) athologist Signature Glucose, Whole 145 70 - 180 [facility] Blood mg/dl [facility] Comment: Point of Care Testing No Action Required Specimen Anatomical Collection Method Collection Time Receive d Time (Source) Location / / Volume Laterality 02/20/2018 5:05 PM 8 5:25 CDT PM CDT Marky Gonzalez MD LAB_1 Performing Organization Address City/[facility] Phon e Number [address] [address], [facility] [phone] Glucose, Whole Blood POC (02/20/2018 3:45 PM CDT) athologist Signature Glucose, Whole 145 70 - 180 [facility] Blood mg/dl [facility] Comment: Point of Care Testing No Action Required Specimen Anatomical Collection Method Collection Time Receive d Time (Source) Location / / Volume Laterality 02/20/2018 3:45 PM 8 3:52 CDT PM CDT Marky Gonzalez MD LAB_1 Performing Organization Address City/[facility]/ZIP [facility] Phon e Number [address] [address], [facility] [phone] XR C-Arm 0-30 Minutes (02/20/2018 2:05 PM CDT) Anatomical Region Laterality Modality Other Specimen (Source) Anatomical Location Collection Method / Collectio n Time Received Time / Laterality Volume Narrative 02/20/2018 2:06 PM CDT Fluoroscopy provided by a manufacturing technologist. Exact fluoroscopy time is documented in end of exam information in EPIC Marky Gonzalez MD RAD GD XR C-Arm 2.5-3 Hours (02/20/2018 12:45 PM CDT) Anatomical Region Laterality Modality Other Specimen (Source) Anatomical Location Collection Method / Collectio n Time Received Time / Laterality Volume Narrative 02/20/2018 12:45 PM CDT Fluoroscopy provided by a manufacturing technologist. Exact fluoroscopy time is documented in end of exam information in EPIC Marky Gonzalez MD RAD GD XR C-Arm 30-59 Minutes (02/20/2018 12:36 PM CDT) Anatomical Region Laterality Modality Other Specimen (Source) Anatomical Location Collection Method / Collectio n Time Received Time / Laterality Volume Narrative 02/20/2018 12:36 PM CDT Fluoroscopy provided by a manufacturing technologist. Exact fluoroscopy time is documented in end of exam information in EPIC Marky Gonzalez MD RAD GD Glucose, Whole Blood POC (02/20/2018 9:02 AM CDT) athologist Signature Glucose, Whole 135 70 - 180 [facility] Blood mg/dl [facility] Comment: Point of Care Testing RN Notified Specimen Anatomical Collection Method Collection Time Receive d Time (Source) Location / / Volume Laterality 02/20/2018 9:02 AM 8 9:08 CDT AM CDT Marky Gonzalez MD LAB_1 Performing Organization Address City/[facility]/ZIP Code Phon e Number [address] [address] [place] [address], [facility] [phone] Glucose, Whole Blood POC (02/20/2018 6:25 AM CDT) athologist Signature Glucose, Whole 90 70 - 180 [facility] Blood mg/dl [facility] Specimen Anatomical Collection Method Collection Time Receive d Time (Source) Location / / Volume Laterality 02/20/2018 6:25 AM 8 6:34 CDT AM CDT Marky Gonzalez MD LAB_1 Performing Organization Address [facility] Phon e Number [address] [address] [place] [address], [facility] ABO/RH(D) Retype (02/20/2018 6:22 AM CDT) athologist Signature ABO/RH(D) A NEGATIVE [facility] Specimen Anatomical Collection Method Collection Time Receive d Time (Source) Location / / Volume Laterality 02/20/2018 6:22 AM 8 6:25 CDT AM CDT [facility] - 02/20/2018 7:06 AM CD T Performed at [facility] , [address] [place] [address] Marky Gonzalez MD LAB_1 Performing Organization Address City/[facility] Phon e Number [address] [address], [facility] INR/Protime (PT/INR) (02/20/2018 6:08 AM CDT) athologist Signature Protime 13.0 12.0 - 14.5 [facility] INR 1.0 0.9 - 1.1 [facility] Specimen Anatomical Collection Method Collection Time Receive d Time (Source) Location / / Volume Laterality 02/20/2018 6:08 AM 8 6:22 CDT AM CDT [facility] - 02/20/2018 6:40 AM CD T Performed at [facility] , [address] [place] [address] Sirisha Maher APRN, CNP LAB_1 Performing Organization Address [facility] Phon e Number [address] [address] [place] [address], [facility] Hemogram with Platelets (02/20/2018 6:08 AM CDT) athologist Signature WBC 6.7 4.0 - 11.0 [facility] k/ul HOSPITAL RBC 4.13 4.0 - 5.2 [facility] M/ul HOSPITAL Hemoglobin 13.5 12.0 - 16.0 [facility] g/dl HOSPITAL HCT 39.8 36.0 - 46.0 [facility] MCV 96.4 80 - 100 fl [facility] MCH 32.7 26 - 34 pg [facility] MCHC 33.9 32 - 36 [facility] g/dl [facility] RDW 13.8 11.5 - 14.5 [facility] % [facility] Platelets 245 150 - 450 [facility] k/ul [facility]OSPITAL MPV 10.6 9.4 - 12.4 [facility] Specimen Anatomical Collection Method Collection Time Receive d Time (Source) Location / / Volume Laterality 02/20/2018 6:08 AM 8 6:22 CDT AM CDT [facility] - 02/20/2018 6:32 AM CD T Performed at [facility] , [address] [place] [address] Sirisha Maher APRN EMERGENCY RESPONSE OFFICER LAB_1 Performing Organization Address City/[facility] Phon e Number [id number] [place] [address] [phone] (ABNORMAL) Basic Metabolic Panel (02/20/2018 6:08 AM CDT) athologist Signature Sodium 139 136 - 145 [facility] mmol/L [facility] Potassium 4.4 3.5 - 5.1 [facility] mmol/L [facility] Comment: Specimen Slightly Hemolyzed Hemolysis May Affect Result Chloride 109 98 - 109 mmol/L [facility] 18 (L) 20 - 29 mmol/L [facility] L Anion Gap (calc.) 12 7 - 16 mmol/L [facility] Glucose 96 70 - 180 mg/dl [facility] L Calcium 9.4 8.4 - 10.2 mg/dl [facility] EHSAN BUN 14 7 - 26 mg/dl [facility] Creatinine 0.69 0.55 - 1.02 mg/dl [facility]ITAL GFR, Estimated >60 >60 ml/min/1.73m2 [facility] GFR, Est., If Black >60 >60 ml/min/1.73m2 [facility] Specimen Anatomical Collection Method Collection Time Receive d Time (Source) Location / / Volume Laterality 02/20/2018 6:08 AM 8 6:22 CDT AM CDT [facility] - 02/20/2018 6:52 AM CD T Performed at [facility] , [address] [place] [address] Sirisha Maher APRN, EMERGENCY RESPONSE OFFICER LAB_1 Performing Organization Address [facility] Phon e Number [address] [address] [place] [id number], [facility] aPTT (Activated Partial Thromboplastin Time) (02/20/2018 6:08 AM CDT) P athologist Signature PTT 26.8 24.0 - 37.0 [facility] Specimen Anatomical Collection Method Collection Time Receive d Time (Source) Location / / Volume Laterality 02/20/2018 6:08 AM 8 6:22 CDT AM CDT Narrative [facility] - 02/20/2018 6:40 AM CD T Performed at [facility] , [address] [place] [address] Sirisha Maher APRN, CNP LAB_1 Performing Organization Address City/[facility]/ZIP [facility] Phon e Number [address] [address], [facility] ABO Rh & Antibody Screen (Type & Screen) (02/20/2018 6:07 AM CDT) [facility] Method Time Signature Crossmatch 02/23/2018 [facility] ABO/RH(D) A NEGATIVE [facility] Antibody Screen NEGATIVE [facility] Specimen Anatomical Collection Method Collection Time Receive d Time (Source) Location / / Volume Laterality 02/20/2018 6:07 AM 8 6:22 CDT AM CDT Narrative [facility] - 02/20/2018 7:10 AM CD T Performed at [facility] , [address] [place] [address] Sirisha Maher APRN EMERGENCY RESPONSE OFFICER LAB_1 Performing Organization Address City/[facility]/ZIP Code Phon e Number [address] [address], [facility] EKG IP (02/20/2018 12:00 AM [...] Segura RN - 02/23/2018 9:57 AM CDT [facility] Plan of Care Note Assessment: Incisions [...] Carbajal RN - 02/23/2018 7:43 AM CDT [facility] Plan of Care Note Assessment: pain [...] Rico RN - 02/22/2018 10:15 PM CDT [facility] Plan of Care Note Assessment: comfort [...] Rico RN - 02/22/2018 4:00 PM CDT [facility]. MD Notified Note Name of MD notified: Ankit Time of MD notification: 1600 hours and 1 minute Reason: Pt.asking for valium now and current order for HS prn. [facility] review. [id number]. Response: Valium one time dose now and HS prn. Shawn Butcher RN --- End of Report --- Plan of Care - Alec Gifford RN - 02/22/2018 1:57 PM CDT [facility] Plan of Care Note Assessment: pain [...] Lundberg RN - 02/22/2018 2:32 AM CDT [facility] Plan of Care Note Assessment: Pain [...] Orellana RN - 02/22/2018 12:33 AM CDT [facility] Plan of Care Note Assessment: Pain [...] Gifford RN - 02/21/2018 1:41 PM CDT [facility] Plan of Care Note Assessment: pain [...] Lundberg RN - 02/21/2018 4:56 AM CDT [facility]. MD Notified Note Name of MD notified: Neurosurg Time of MD notification: 0400 hours and 55 minutes Reason: [id number]- Pt reporting oral/IV pain meds ineffective. Pt upset, req further intervention. Please advise. Thanks. Response: Discussed w/ neurosurg. To be addressed in AM and PRNs to continue to be administered as able. Anita Lundberg RN --- End of Report --- Plan of Care - Anita Lundberg RN - 02/21/2018 2:26 AM CDT [facility] Plan of Care Note Assessment: Pain [...] Factors and Signs and Symptoms Outcome: Progressing 02/20/182355 Pain, Acute Related Risk Factors (Acute Pain) surgery;procedure/treatment;persistent pain;disease process Signs and Symptoms (Acute Pain) alteration in muscle tone;sleep pattern alteration;verbalization of pain descriptors;questions meaning of pain;pacing/restlessness Goal: Acceptable Pain Control/Comfort Level 02/20/182355 Pain, Acute (Adult) Acceptable Pain Control/Comfort Level unable to achieve outcome Comments: [facility] Plan of Care Note Assessment: posterior neck pain worst than anterior Plan: IHR, assessment, pain control Subjective: I thought that I was going to be on a dilaudid drip Objective: Pt angry that she was not on a MARKETING COORDINATOR pump, Dilaudid PO and IV given q3h, [...] 10:32 AM CDT 2 Patches lidocaine-epinephrine 1 %-1:[id number] injec tion Given 02/20/2018 10:21 AM CDT 10 mL ONCE PRN, Starting on Tue02/20/18 at 1020, Until 02/20/18 at 1650, Intra-op Given 02/20/2018 8:32 AM [...] Alec Gifford, RADHA)1940 (Given - Provider: Anisha Bach RN) 0821 (Given - Provider: Marlen Segura, RN) [...] RN) 0759 (Patch Removed - Provider: Marlen Segura RN)0821 (Patch Applied - Provider: Marlen Segura RN) 1 Patch, Transdermal, TWICE WEEKLY (Once per day on Tue), First dose on Tue02/22/18 at 1600, Hazardous waste disposal required. fluticasone-salmeterol (ADVAIR) 250-50 MCG/DOSE diskus inhaler 1 Puff 1017 (Given - Provider: Alec Gifford RN)2108 (Given - Provider: Judith Orellana RN) 0744 (Given - Provider: Alec Gifford RN)1943 (Given - Provider: Anisha Bach, RADHA) 0822 (Given - Provider: Marlen Segura, RADHA) 1 Puff, Inhalation, BID, First dose on [...] Gifford RN) 0540 (Given - Provider: Anita Lundberg, RADHA) 0510 (Given - Provider: Heather Carbajal, RADHA) 30 mg, Oral, DAILY AT 0600, First dose on Tue02/21/18 at 0945 lidocaine (LIDODERM) 5 % patch 2 Patch 1 032 (Patch Applied - Provider: Alec Gifford RN - Comment: pt request)2231 (Patch Removed - Provider: Shawn Patton, RADHA) 817 (Patch Applied - Provider: Marlen navas [...] 0820 (Given - Provider: Marlen Segura RN) 5 mg, Oral, DAILY, First dose [...] Gifford RN)194 (Given - Provider: Anisha Bach, RN) 0819 (Given - Provider: Marlen Segura, RN) 20 mEq, Oral, BID, First dose on Tue02/21/18 at 0945 pregabalin (LYRICA) capsule 150 mg (CANCELED) 0739 (Gi saeid - Provider: Alec Gifford RN) 150 mg, Oral, BID, First dose on Tue02/20/18 at 2000, PACU & Pos t-op pregabalin (LYRICA) capsule 150 mg(Linked Group 1) 0743 (Given - Provider: Alce Gifford RN) 0818 (Given - Provider: Marlen Segura, RN) 150 mg, Oral, DAILY, First dose on Tue at 0800, 150mg in the AM, 450mg at HS pregabalin (LYRICA) capsule 450 mg(Linked Group 1) 210 8 (Given - Provider: Judith Orellana RN) 2104 (Given - Provider: Shawn Patton RN) 450 mg, Oral, HS, First dose on 02/21 at 2100, 150mg in the AM, 450mg at HS sennosides-docusate sodium (SENNA-S,SENNA PLUS) 8.6-50 MG per tablet 2 Tab 0739 (Given - Provider: Alec Gifford RN)1957 (Given - Provider: Judith Orellana RN) 0744 (Given - Provider: Alec Gifford RN)1941 (Given - Provider: Anisha Bach, RADHA) 0820 (Given - Provider: Marlen Segura, RADHA) [...] Anita bunch RN)0753 (Given - Provider: Alec Gifford, RN)1715 (Given - Provider: Shawn Patton, RADHA) 0000 (Canceled Entry - Provider: Heather Carbajal RN)0800 (Canceled Entry - Provider: Marlen Segura, RN) 3 mL, Intravenous, Q8H, First dose on Mo n 02/20/18 at 1700, May DC IVF and saline lock once pt tolerating PO intake adequately. Saline lock until discontinued., PACU & Post-op 1613 (Given - Provider: Judith Orellana, RN) tiotropium (SPIRIVA) inhalation capsule 18 mcg 1022 (G iven - Provider: Alec Gifford RN) 0744 (Given - Provider: Alec Gifford, RADHA) 0822 (Given - P rovider: Marlen Segura, RN) 18 mcg, Inhalation, DAILY, First dose on Tue02/21/18 at 0945 tiZANidine (ZANAFLEX) tablet 2-4 mg (CANCELED) 1333 (G iven - Provider: Alec Gifford, RADHA) 2-4 mg, Oral, Q8H (NON-STND), First dose on Tue02/21/18 at 1215 vancomycin 1 g IV piggyback PYXIS (COMPLETED) 0602 (St arted - Provider: Anita Lundberg, RADHA)0702 (Due: Infused - Provider: Anita Lundberg RN) 1,000 mg, Intravenous, Administer over 6 0 Minutes, Q12H (NON-STND), First dose on Tue02/20/18 at 1830, For 24 hours, PACU & Post-op zonisamide (ZONEGRAN) capsule 300 mg 1015 (Given - Pro vider: Alec Gifford, RADHA)1958 (Given - Provider: Judith Orellana, RADHA) 0743 (Given - Provider: Alec Gifford, RADHA)1942 (Given - Provider: Anisha Bach, RADHA) 0819 (Given - Provider: Marlen Segura, RN) 300 mg, Oral, BID, First dose on Tue02/21/18 at 0945 Continuous Medication Order 02/21/2018 02/22/2018 02/23/2018 sodium chloride 0.9% infusion (CANCELED) 0426 (New Bag Started - Provider: Anita Lundberg RN)0933 (Stopped - Provider: Alec Gifford, RN) 1,000 mL, Intravenous, at 100 mL/hr, CON TINUOUS, Starting Tue02/20/18 at 1700, PACU & Post-op PRN Medication Order 02/21/2018 02/22/2018 02/23/2018 benzocaine-menthol (CEPACOL) lozenge 1 Lozenge 1 Lozenge, Oral, PRN PER PARAMETERS, Thr oat Pain, Starting Tue02/20/18 at 1635, PACU & Post-op bisacodyl (DULCOLAX) rectal suppository 10 mg 10 mg, Rectal, DAILY PRN, Constipation, Starting Tu02/21/18 at 0000, PACU & Post-op diazePAM (VALIUM) tablet 2.5-5 mg (COMPLETED) 1713 (Given - Provider: Shawn Patton RN) 2.5-5 mg, Oral, ONCE PRN, Anxiety, Starting Tue02/22/18 at 1601, For 1 dose diazePAM (VALIUM) tablet 5 mg 2320 (Given - Prov ider: Heather Carbajal, RADHA) 5 mg, Oral, HS PRN, Anxiety, Starting Tue02/22/18 at 1533 diphenhydrAMINE (BENADRYL) capsule 25-50 mg 25-50 mg, Oral, Q6H PRN, Itching, Starting Tue02/20/18 at 16 35, PACU & Post-op HYDROmorphone (DILAUDID) injection 0.2-0.4 mg (CANCELE D) 0233 (Given - Provider: Anita Lundberg RN)0601 (Given - Provider: Anita Lundberg, RADHA)1259 (Given - Provider: Coral Beaver RN)2107 (Given - Provider: Judith Orellana RN) 0035 (Given - Provider: Anita bunch RN)0355 (Given - Provider: Anita Lundberg RN)0704 (Given - Provider: Anita Lundberg RN)1028 (Given - Provider: Alec Gifford, RADHA) 0.2-0.4 mg, Intravenous, Q3H PRN, Pain, Use if unable to take PO, Starting 02/20/18 at 1635, For 48 hours, Give IV opioid for breakthrough pain, if unable to give PO or per patient preference., PACU & Post-op HYDROmorphone (DILAUDID) tablet 2-4 mg 0056 (Given - P rovider: Anita uLndberg RN)0425 (Given - Provider: Anita Lundberg RN)0738 (Given - Provider: Alec Gifford RN)1034 (Given - Provider: Alec Gifford RN)1612 (Given - Provider: Judith Orellana RN) 0227 (Given - Provider: Anita bunch RN)0540 (Given - Provider: Anita Lundberg RN)0836 (Given - Provider: Alec Gifford RN)1140 (Given - Provider: Alec Gifford RN)1433 (Given - Provider: Alec Migeul RN) 0022 (Given - Provider: Heather espinoza [...] less than 8 breaths per minute.? Notify if given., Starting Tue02/20/18 at 1635, Excessive Sedation/Re spiratory Rate less than 8 breaths per m inute.? Notify MD if given., PACU & Post-op ondansetron (ZOFRAN-ODT) disintegrating tablet 4 mg 13 03 (Given - Provider: Coral Beaver, RADHA) 0708 (Given - Provider: Anita Lundberg RN) 4 mg, Oral, Q8H PRN, Nausea, Vomiting, S tarting Tu02/21/18 at 0917, Do not swallow tablet whole. [...] HS
documented in this encounter Care Teams Public Relations Writer Relationship Specialty Start Date End Date Jose Holden MD PCP - General Otolaryngology 12/14/[address] [place] [id number] documented as of this encounter
--- OUTSIDE RECORDS SUMMARY | 2022-11-06 15:24 | XMS_ITS | Encounter Summary ---
:1965 Author Organization [facility] Address [address] [place] [address] Care Team Providers Name Role Phone Jose Holden MD Primary Care Provider [phone] Encounter Details Date Type Department Care Team [...] 12/02/2022 Appointment Orthopedics Donald Medley MD [address] [facility] [address] [place], [place] [phone] (Wo rk) 12/31/2022 Appointment Orthopedics Donald Medley MD [address] [facility] [address] [place], [place] [phone] (Wo rk) documented as of this encounter Visit Diagnoses Not on filedocumented in this encounter Care Teams Buckle Sewer Machine Relationship Specialty Start Date End Date Jose Holden MD PCP - General Otolaryngology 12/14/17 [address] [place], [place] [phone] documented as of this encounter
--- OUTSIDE RECORDS SUMMARY | 2022-11-06 15:24 | XMS_ITS | Encounter Summary ---
:1965 [facility] Address [address] [address] Care Team Providers Name Role Phone Jose Holden MD Primary Care Provider Reason for Referral Procedure/Equipment (Routine) - Incomplete Specialty Diagnoses / Procedures Referred By Contact Refer red To Contact Diagnoses Cervical spondylosis with radiculopathy (HRC) Sirisha Rankin, Procedures XR Cervical Spine AP/Lat Upright [address] [place] [address] Referral ID Status Reason Start Date Expiration Date Visits V isits Requested Authorized [id number] Incomplete 02/21/2018 05/23/2019 1 1 (Routine) Specialty Diagnoses / Procedures Referred By Contact Refer red To Contact Sirisha Rankin, [address] [place] [address] Referral ID Status Reason Start Date Expiration Date Visits Requ ested Visits Authorized (Routine) - Incomplete Specialty Diagnoses / Procedures Referred By Contact Refer red To Contact Procedures Marky Gonzalez MD XR C-Arm 0-30 Minutes [address] [place] [address] Referral ID Status Reason Start Date Expiration Date Visits V isits Requested Authorized [id number] Incomplete 02/20/2018 05/22/2019 1 1 Procedure/Equipment (Routine) - Incomplete Specialty Diagnoses / Procedures Referred By Contact Refer red To Contact Procedures Lois Pham PA-C XR Cervical Spine AP/Lat [address] [place], [place] [address] Referral ID Status Reason Start Date Expiration Date Visits V isits Requested Authorized [id number] Incomplete 02/20/2018 05/22/2019 1 1 (Routine) - Incomplete Specialty Diagnoses / Procedures Referred By Contact Refer red To Contact Procedures Marky Gonzalez MD XR C-Arm 30-[address] [place] [address] XR C-Arm 0-30 Minutes [place], [place] [address] Referral ID Status Reason Start Date Expiration Date Visits V isits Requested Authorized [id number] Incomplete 02/20/2018 05/22/2019 1 1 (Routine) - Incomplete Specialty Diagnoses / Procedures Referred By Contact Refer red To Contact Procedures Marky Gonzalez MD XR C-Arm 2.5-3 Hours [address] [place] [address] Referral ID Status Reason Start Date Expiration Date Visits V isits Requested Authorized [id number] Incomplete 02/20/2018 05/22/2019 1 1 Reason for [...] Expiration Date Visits Requ ested Visits Authorized [id number] 1 1 Encounter Details Date Type Department Care Team Description 02/20/2018 - Hospital S10 Marky Gonzalez Carole, Cervical spondylosis with ra diculopathy (Primary Dx); 02/23/2018 Encounter [address] Mesfin Ervin MD Cervical vertebral fusion; [address] [place] 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 on 02/20/2018 following posterior C2-T3 [...] - 12.4 fl Narrative Performed at [facility], [address] [place] [address] Physical Exam: BP 124/78 Pulse 74 Temp [...] in strength to your extremeties. Neurosurgery clinic [phone]. If it is after hours, please call [...] RN on 03/07 at 11AM at [address] [facility], 2nd floor. 2. Follow up with Dr. Gonzalez/Lois Pham PA-C/Sirisha Maher NP on 04/05 at 1:00PM at [address] [facility]. Patient also instructed to call clinic at [phone] or hospital for any questions or concerns. Patient verbalizes understanding and states no further questions at this time. 3. Follow up with PCP for any medical issues Total time spent at the time of discharge was 30 minutes Sirisha Maher APRN, CNP Pgr#[phone] documented in this encounter Discharge Instructions Discharge InstructionsDonna Ellis RN - 02/23/2018 10:42 AM CDT Hospital Contact Information [address] [address] General Information Discharging physician: Dr. Gonzalez Count Includes [facility] Resources Emergency & Urgently Needed Care: For emergencies call 911 and/or get medical help right away. If you are a [facility] member and have medical needs after clinic hours you may call the [facility] [phone] or . Fall Prevention Recommendations ??? Follow [...] Ellis RN - 02/23/2018 11:50 AM CDT [facility] Discharge Note - [...] of Report --- Sneha Maher, Sirisha Celaya, ADMINISTRATIVE DIETITIAN, PATIENT ACCOUNTS CLERK - 02/23/2018 9:02 AM CDT Neurosurgery Progress [...] today. Dispo: Dc home today ?? Sirisha aMher, NIKKY, PATIENT ACCOUNTS CLERK 02/23/2018, 9:02 AM Neurosurgery Pgr#[phone] Jolene Kaur PA-C - 02/22/2018 12:45 PM [...] Lois Pham PA-C, 02/22/2018, 9:05 AM Neurosurgery [phone] He Reyes MD - 02/22/2018 8:29 AM [...] He Reyes M.D. [facility] [phone] INTERVAL HISTORY: She started tizanidine last night [...] capsule 150 mg 150 mg Oral Daily JefryBreyl joe A 150 mg at 02/22/18 0743 And ??? pregabalin (LYRICA) capsule 450 mg 450 mg Oral At Bedtime JefryBeryl joe A 450 mg at 02/21/188 ??? prochlorperazine (COMPAZINE) injection 10 mg 10 mg Intravenous Q6H PRN Lois Pham PA-C ??? sennosides-docusate sodium (SENNA-S,SENNA PLUS) 8.6-50 MG per tablet 2 Tab 2 Tab Oral BID Losi Pham PA-C 2 Tab at 02/22/18 0744 [...] 02/22/18 0743 Current Outpatient Prescriptions Ordered in [facility] Medication Sig Dispense Refill ??? sennosides-docusate [...] TIME SPENT: 35 minutes including 50% time aiwf-sy-uche time counseling her about her diagnosis and treatment options, and coordinating care with the primary team. DECISION-MAKING: The level of decision-making in this case is high/complex due to the complexity of medical problems, acute/chronic pain, opioid analgesia issues, and behavioral factors. He Reyes M.D. Brooklyn Whittington - 02/21/2018 1:47 PM CDT [facility] Care Management Screening Admission Info: [...] She see Dr Dr Estephanie Franz at [facility]. No DC needs anticipated. I verified the demographics on the face sheet for the correct address, phone number, emergency contact and PCP information. Brooklyn Whittington RN CM [phone] Lois Pham PA-C - 02/21/2018 9:23 AM CDT Neurosurgery Progress Note Date of service: 02/21/2018 Subjective: Feels sore. Upset she did not have MARKETING PLANNER overnight. Wants to go smoke. Wants to [...] were a couple of options including MARKETING PLANNER vs IV pain medications for post op pain control, and rationale for non MARKETING PLANNER at this time. Did discuss that would not recommend DC as drain still has high output. Upright xrays prior to DC Up with assistance Continue hemovac until <30/shift Soft collar when OOB, PRN in bed for comfort PT/OT Dispo: Anticipate home in next 1-2 days pending drain output Lois Pham PA-C, 02/21/2018, 9:23 AM Neurosurgery [phone] He Reyes MD - 02/20/2018 1:20 PM [address]T Note from Dr. Covarrubias on 02/13/18: ? 1. On the day of surgery please order an Inpatient pain consult 2. Ketamine 5mg/h during surgery ?? Recommendations for opioids: ?? If using a MARKETING PLANNER: No oral opioids Start a MARKETING PLANNER pump with Dilaudid continuous IV infusion at a basal rate of 0.1 mg/hr with MARKETING PLANNER boluses of 0.2-0.4 mg every 10 minutes. ?? If not using a MARKETING PLANNER: Start dilaudid 2-4mg q3h prn (alternatively can [...] PA-C - 02/20/2018 3:24 PM CDT [facility] Brief Operative Progress Note Surgery Date: 02/20/2018 Surgeon(s) and Role: * Marky Gonzalez MD - Primary PHYSICIAN FLIGHT/TRANSPORT NURSE-Meka Pham Pre-op Diagnosis: * Cervical spondylosis with [...] The procedure was medically necessary for an printing bindery assistant because Dr. Gonzalez needed the operative [...] Lois Pham PA-C, 02/20/2018, 3:25 PM Neurosurgery [phone] Marky Gonzalez MD - 02/20/2018 12:00 AM CDT ANGIE BENDER CSN: [id number] OPERATIVE REPORT DATE OF SURGERY: 02/20/2018 : 1965 SURGEON: MARKY GONZALEZ MD FLIGHT/TRANSPORT NURSE: Lois Pham PA-C. PREOPERATIVE DIAGNOSES: 1. Status [...] procedure, performing all critical portions. MD YOLANDE COLEMAN/TINAL /[id number] cc: MARKY GONZALEZ MD documented in this [...] the risk. 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 She also [...] He Reyes M.D. [facility] [phone] HISTORY OF PRESENT ILLNESS: Per Chart Review: [...] headache Opioid prescriber: Rosetta Martin-LEDY Jerry MD-valium [facility] database review: Risk Factors: History of [...] Lois Pham PA-C ??? glucose-ascorbic acid (aka [id number]) chewable tablet 4 Tab 4 Tab Oral [...] or labdraw Lois Pham PA-C No current [facility]-ordered outpatient prescriptions on file. LABORATORY VALUES: Last [...] TIME SPENT: 70 minutes including 50% time [id number]-[id number] time counseling her about her diagnosis and treatment options, and coordinating care with the primary team. DECISION-MAKING: The level of decision-making in this case is high/complex due to the complexity of medical problems, acute/chronic pain, opioid analgesia issues, and behavioral factors. documented in this encounter Miscellaneous Notes OR Nursing - Monica Pate RN - 02/20/2018 2:49 PM CDT [facility] Progress Note Patient Name: Angie Bender Date of : 1965 8 screws, 6 caps, and 1 plate removed from cervical spine and sent to reprocessing to be returned topatient. Monica Pate RN 02/20/2018 at 2:49 PM documented in this encounter Plan of Treatment Upcoming Encounters Date Type Specialty Care Team Description 12/02/2022 Appointment Orthopedics Donald Medley MD [address] [phone] (Wo rk) 12/31/2022 Appointment Orthopedics Donald Medley MD [address] [address] [...] failure. Anatomic alignment. Shoulder prosthesis. Sirisha Maher ADMINISTRATIVE DIETITIAN, PATIENT ACCOUNTS CLERK RAD GD (ABNORMAL) Complete Blood Count-No Diff (02/22/2018 12:36 PM CDT) athologist Signature WBC 10.2 4.0 - 11.0 [facility] RBC 3.36 (L) 4.0 - 5.2 [facility] Hemoglobin 11.1 (L) 12.0 - 16.0 [facility] gdl [facility] HCT 33.2 (L) 36.0 - 46.0 [facility] MCV 98.8 80 - 100 [employer] [facility] MCH 33.0 26 - 34 pg [facility] MCHC 33.4 32 - 36 [facility] g/dl [facility] RDW 14.4 11.5 - 14.5 [facility] Platelets 183 150 - 450 [facility] MPV 10.6 9.4 - 12.4 [facility] Specimen Anatomical Collection Method Collection Time Receive d Time (Source) Location / / Volume Laterality 02/22/2018 12:36 02/22/2018 PM CDT 12:37 PM CDT Narrative [facility] - 02/22/2018 12:46 PM C DT Performed at [facility] , [address] [place] [address] Lois Pham PA-C LAB_1 Performing Organization Address City/State/ZIP Code Phon e Number [address] [address], [facility] XR Cervical [...] Whole Blood POC (02/21/2018 7:41 AM CDT) P athologist Signature Glucose, Whole 109 70 - 180 [facility] Blood mg/dl [facility]OSPITAL Comment: Point of Care Testing RN Notified Specimen Anatomical Collection Method Collection Time Receive d Time (Source) Location / / Volume Laterality 02/21/2018 7:41 AM 8 7:57 CDT AM CDT Marky Gonzalez MD LAB_1 Performing Organization Address [facility] Phon e Number [phone] [address], [facility] (ABNORMAL) Basic Metabolic Panel (02/21/2018 7:12 AM [...] HOSPITAL GFR, Estimated >60 >60 [facility] ml/min/1.7 [facility] 3m2 GFR, Est., If >60 >60 [facility] Black ml/min/1.7 [facility] 3m2 Specimen Anatomical Collection Method Collection Time Receive d Time (Source) Location / / Volume Laterality 02/21/2018 7:12 AM 8 7:13 CDT AM CDT Narrative [facility] - 02/21/2018 7:47 AM CD T Performed at [facility] , [address] [place] [address] Lois Pham PA-C LAB_1 Performing Organization Address [facility] Phon e Number [address] [address], [facility] (ABNORMAL) Hemogram with Plts (02/21/2018 7:12 AM CDT) athologist Signature WBC 10.0 4.0 - 11.0 [facility] k/ul HOSPITAL RBC 3.29 (L) 4.0 - 5.2 [facility] M/ul [facility]OSPITAL Hemoglobin 10.7 (L) 12.0 - 16.0 [facility] g/dl [facility] HCT 32.2 (L) 36.0 - 46.0 [facility] % [facility]OS[facility]ITAL MCV 97.9 80 - 100 fl [facility] MCH 32.5 26 - 34 pg [facility] MCHC 33.2 32 - 36 [facility] g/dl HOSPITAL RDW 13.9 11.5 - 14.5 [facility]OSPITAL Platelets 186 150 - 450 [facility] k/ul HOSPITAL MPV 10.3 9.4 - 12.4 [facility] Specimen Anatomical Collection Method Collection Time Receive d Time (Source) Location / / Volume Laterality 02/21/2018 7:12 AM 8 7:13 CDT AM CDT Narrative [facility] - 02/21/2018 7:26 AM CD T Performed at [facility] , [address] [place] [address] Lois Pham PA-C LAB_1 Performing Organization Address City/[facility] Phon e Number [address] [address], [facility] Glucose, Whole Blood POC (02/20/2018 11:20 PM CDT) P athologist Signature Glucose, Whole 140 70 - 180 [facility] Blood mg/dl [facility]OSPITAL Comment: Point of Care Testing No Action Required Specimen Anatomical Collection Method Collection Time Receive d Time (Source) Location / / Volume Laterality 02/20/2018 11:20 02/20/2018 PM CDT 11:26 PM CDT Marky Gonzalez MD LAB_1 Performing Organization Address City/[facility]/ZIP Code Phon e Number [address] [address], [place] Glucose, Whole Blood POC (02/20/2018 5:05 [...] Organization Address City/State/ZIP Code Phon e Number [address] [address], [facility] [phone] Glucose, Whole Blood POC (02/20/2018 3:45 PM [...] Organization Address City/State/ZIP Code Phon e Number [address] [address], [facility] XR C-Arm 0-30 Minutes (02/20/2018 2:05 PM CDT) Anatomical Region Laterality Modality Other Specimen (Source) Anatomical Location Collection Method / Collectio n Time Received Time / Laterality Volume Narrative 02/20/2018 2:06 PM CDT Fluoroscopy provided by a radiology ct technologist. Exact fluoroscopy time is documented in end of exam information in [facility] Marky Gonzalez MD RAD GD XR C-Arm [...] documented in end of exam information in [facility] Marky Gonzalez MD RAD GD Glucose, Whole [...] Gonzalez MD LAB_1 Performing Organization Address City/[facility]/ZIP Code Phon e Number [address] [address], [facility] Glucose, Whole Blood POC (02/20/2018 6:25 AM CDT) athologist Signature Glucose, Whole 90 70 - 180 [facility] Blood mg/dl HOSPITAL Specimen Anatomical Collection Method Collection Time Receive d Time (Source) Location / / Volume Laterality 02/20/2018 6:25 AM 8 6:34 CDT AM CDT Marky Gonzalez MD LAB_1 Performing Organization Address City/[facility]/ZIP Code Phon e Number [address] [address], [facility] ABO/RH(D) Retype (02/20/2018 6:22 AM CDT) athologist Signature ABO/RH(D) A NEGATIVE [facility] Specimen Anatomical Collection Method Collection Time Receive d Time (Source) Location / / Volume Laterality 02/20/2018 6:22 AM 8 6:25 CDT AM CDT Narrative [facility] - 02/20/2018 7:06 AM CD T Performed at [facility] , [address] [place] [address] Marky Gonzalez MD LAB_1 Performing Organization Address City/[facility]/ZIP [facility] Phon e Number [address] [address] [place] [address], [facility] [phone] INR/Protime (PT/INR) (02/20/2018 6:08 AM CDT) athologist Signature Protime 13.0 12.0 - 14.5 [facility] INR 1.0 0.9 - 1.1 [facility] Specimen Anatomical Collection Method Collection Time Receive d Time (Source) Location / / Volume Laterality 02/20/2018 6:08 AM 8 6:22 CDT AM CDT Narrative [facility] - 02/20/2018 6:40 AM CD T Performed at [facility] , [address] [place] [address] Sirisha Maher APRN, CNP LAB_1 Performing Organization Address [facility] [address] [place] [address], [facility] Hemogram with Platelets (02/20/2018 6:08 AM CDT) P athologist Signature WBC 6.7 4.0 - 11.0 [facility] RBC 4.13 4.0 - 5.2 [facility] Hemoglobin 13.5 12.0 - 16.0 [facility] g/dl [facility] HCT 39.8 36.0 - 46.0 [facility] MCV 96.4 80 - 100 fl [facility] MCH 32.7 26 - 34 pg [facility] MCHC 33.9 32 - 36 [facility] g/[facility] RDW 13.8 11.5 - 14.5 [facility] Platelets 245 150 - 450 [facility] MPV 10.6 9.4 - 12.4 [facility] Specimen Anatomical Collection Method Collection Time Receive d Time (Source) Location / / Volume Laterality 02/20/2018 6:08 AM 8 6:22 CDT AM CDT Narrative [facility] - 02/20/2018 6:32 AM CD T Performed at [facility] , [address] [place] [address] Sirisha Maher APRN, PATIENT ACCOUNTS CLERK LAB_1 Performing Organization Address [facility]/ZIP [facility] [place] [address] [place] [address], [facility] (ABNORMAL) Basic Metabolic Panel (02/20/2018 6:08 AM CDT) P athologist Signature Sodium 139 136 - 145 [facility] mmol/L [facility] Potassium 4.4 3.5 - 5.1 [facility] mmol/L HOSPITAL Comment: Specimen Slightly Hemolyzed Hemolysis May Affect Result Chloride 109 98 - 109 mmol/L [facility] HOSPIT AL CO2 18 (L) 20 - 29 mmol/L [facility] HOSPITA L Anion Gap (calc.) 12 7 - 16 mmol/L [facility] Glucose 96 70 - 180 mg/dl [facility] L Calcium 9.4 8.4 - 10.2 mg/dl [facility] HOSPI EHSAN BUN 14 7 - 26 mg/dl [facility] Creatinine 0.69 0.55 - 1.02 mg/dl [facility] GFR, Estimated >60 >60 ml/min/1.73m2 [facility] GFR, Est., If Black >60 >60 ml/min/1.73m2 [facility] Specimen Anatomical Collection Method Collection Time Receive d Time (Source) Location / / Volume Laterality 02/20/2018 6:08 AM 8 6:22 CDT AM CDT [facility] - 02/20/2018 6:52 AM CD T Performed at [facility] , [address] [place] [address] Sirisha Maher APRN, CNP LAB_1 Performing Organization Address City/[facility]/ZIP [facility] Phon e Number [address] [address] [place] [address], [facility] aPTT (Activated Partial Thromboplastin Time) (02/20/2018 6:08 AM CDT) P athologist Signature PTT 26.8 24.0 - 37.0 [facility] Specimen Anatomical Collection Method Collection Time Receive d Time (Source) Location / / Volume Laterality 02/20/2018 6:08 AM 8 6:22 CDT AM CDT [facility] - 02/20/2018 6:40 AM CD T Performed at [facility] , [address] [place] [address] Sirisha Maher APRN, CNP LAB_1 Performing Organization Address [facility]/ZIP [facility] Phon e Number [address] [address], [facility] ABO Rh & Antibody Screen (Type & Screen) (02/20/2018 6:07 AM CDT) Patholo gist Method Time Signature Crossmatch 02/23/2018 [facility] Expires HOSPITAL ABO/RH(D) A NEGATIVE [facility] Antibody Screen NEGATIVE [facility] Specimen Anatomical Collection Method Collection Time Receive d Time (Source) Location / / Volume Laterality 02/20/2018 6:07 AM 8 6:22 CDT AM CDT Narrative [facility] - 02/20/2018 7:10 AM CD T Performed at [facility] , [address] [place] [address] Sirisha Maher APRN, PATIENT ACCOUNTS CLERK LAB_1 Performing Organization Address City/State/ZIP [place] [address] [address], [facility] EKG IP (02/20/2018 12:00 AM CDT) Specimen (Source) Anatomical Location Collection Method / Collectio n Time Received Time / Laterality Volume 02/20/2018 Narrative This result has an attachment that is no t available. Provider [facility] EKG documented in this encounter Visit [...] Segura RN - 02/23/2018 9:57 AM CDT [facility] Plan of Care Note Assessment: [...] RN - 02/23/2018 7:43 AM CDT [facility] Plan of Care Note Assessment: [...] RN - 02/22/2018 10:15 PM CDT [facility] Plan of Care Note Assessment: [...] RN - 02/22/2018 4:00 PM CDT [facility]. Notified Note Name of MD notified: Ankit Time of MD notification: 1600 hours and 1 minute Reason: Pt.asking for valium now and current order for HS prn. plz review. [id number]. Response: Valium one time dose now and HS prn. Shawn Butcher RN --- End of Report --- Plan of Care - Alec Gifford RN - 02/22/2018 1:57 PM CDT [facility] Plan of Care Note Assessment: [...] RN - 02/22/2018 2:32 AM CDT [facility] Plan of Care Note Assessment: [...] RN - 02/22/2018 12:33 AM CDT [facility] Plan of Care Note Assessment: [...] RN - 02/21/2018 1:41 PM CDT [facility] Plan of Care Note Assessment: [...] RN - 02/21/2018 4:56 AM CDT [facility]. MD Notified Note Name of MD notified: Neurosurg Time of MD notification: 0400 hours and 55 minutes Reason: [id number]- Pt reporting oral/IV pain meds ineffective. Pt upset, req further intervention. Please advise. Thanks. Response: Discussed w/ neurosurg. To be addressed in AM and PRNs to continue to be administered as able. Anita Lundberg RN --- End of Report --- Plan of Care - Anita Lundberg RN - 02/21/2018 2:26 AM CDT [facility] Plan of Care Note Assessment: [...] Level unable to achieve outcome Comments: [facility] Plan of Care Note Assessment: posterior neck pain worst than anterior Plan: IHR, assessment, pain control Subjective: I thought that I was going to be on a dilaudid drip Objective: Pt angry that she was not on a MARKETING PLANNER pump, Dilaudid PO and IV given q3h, [...] PM CDT 50 mcg 25-50 mcg, Intravenous, [id number], Pain, Starting on Tue02/20/18 at 1451, Until [...] Starting on Tue02/21/18 at 1900, Until Clementine 3/29/18 at 1350 Given 02/22/2018 8:52 PM CDT [...] RN) 0743 (Given - Provider: Alec Gifford RN)14 05 (Given - Provider: Alec Gifford, RADHA)1940 (Given - Provider: Anisha Bach RN) 0821 (Given - Provider: Marlen Segura RN) 1,000 mg, Oral, TID, First dose [...] Segura, RN)0821 (Patch Applied - Provider: Marlen Segura RN) 1 Patch, Transdermal, TWICE WEEKLY (Once per day on Tue), First dose on Tue02/22/18 at 1600, Hazardous waste disposal required. fluticasone-salmeterol (ADVAIR) 250-50 MCG/DOSE diskus inhaler 1 Puff 1017 (Given - Provider: Alec Gifford RN)2108 (Given - Provider: Judith Orellana, RADHA) 0744 (Given - Provider: Alec Gifford, RADHA)194 (Given - Provider: Anisha Bach RN) 0822 (Given - Provider: Marlen Segura, RADHA) [...] 0820 (Given - Provider: Marlen Segura, RN) 20 mg, Oral, DAILY, First dose on Tue02/21/18 at 0945 ketamine 1 mg/mL IV syringe INFUSION 5 mg/hr (5 mL/hr), Intravenous, at 5 mL/ hr, INTRA-OP, Starting Tue02/20/18 at 1322, For 1 dose, Continous infusion lamoTRIgine (LaMICtal) tablet 200 mg 1015 (Given - Pro vider: Alec Gifford RN)195 (Given - Provider: Judith Orellana RN) 0743 (Given - Provider: Alec Gifford RN)1942 (Given - Provider: Anisha Bach, RADHA) 0819 (Given - Provider: Marlen Segura, RADHA) 200 mg, Oral, BID, First dose on Tue02/21/18 at 0945 lansoprazole (PREVACID) capsule 30 mg 1016 (Given - Provider : Alec Gifford RN) 0540 (Given - Provider: Anita Lundberg, RN) 0510 (Given - Provider: Heather Carbajal, RADHA) [...] Gifford RN) 0743 (Given - Provider: Alec Gifford, RADHA) 0820 (Given - Provider: Marlen Segura, RN) 80 mg, Oral, DAILY, First dose on Tue at 0945, Administer with food. Meal or snack must contain at least 350 calories. polyethylene glycol (MIRALAX) oral powder 17 g 0739 (G iven - Provider: Alec Gifford RN) 0742 (Given - Provider: Alec Gifford, RN) 0818 (Given - P rovider: Marlen [...] Gifford RN)1939 (Given - Provider: Anisha Bach, RN) 0819 [...] 8 (Given - Provider: Judith Orellana, RADHA) 2104 (Given - Provider: Shawn Patton RN) [...] RADHA) 0820 (Given - Provider: Marlen Segura, RN) 2 Tablet, Oral, BID, First dose on Tue at 2000, as laxative/stimulant, stool-softening agent, PACU & Post-op sodium chloride 0.9% injection 3 mL 0000 (Not Given - Provider: Mnaoj Singh RN - Reason: Other (Enter Reason in Comment Area) - Comment: IVF)0800 (Not Given - Provider: Alec Gifford RN - Reason: Other (Enter Reason in Comment Area) - Comme nt: IV infusing) 0000 (Given - Provider: Anita bunch RN)0753 (Given - Provider: Alce Gifford RN)1715 (Given - Provider: Shawn Patton RN) 0000 (Canceled Entry - Provider: Heather Carbajal RN)0800 (Canceled Entry - Provider: Marlen Segura, RADHA) 3 mL, Intravenous, Q8H, First dose on 02/20/18 at 1700, May DC IVF and [...] Alec Gifford RN)1958 (Given - Provider: Judith Orellana, RADHA) 0743 (Given - Provider: Alec Gifford, RN)1942 (Given - Provider: Anisha Bach, RADHA) 0819 [...] (CANCELE D) 0233 (Given - Provider: Anita Lundberg, RADHA)0601 (Given - Provider: Anita Lundberg RN)1259 (Given [...] Alec Gifford, RN)1034 (Given - Provider: Alec Gifford RN)1612 (Given - Provider: Judith Orellana RN) 0227 (Given - Provider: Anita bunch RN)0540 (Given - Provider: Anita Lundberg RN)0836 (Given - Provider: Alec Gifford, RADHA)1140 (Given - Provider: Alec Gifford RN)1433 (Given [...] mg (CANCELED) 0056 (Given - Provider: Anita K Toño, RN)1034 (Given - Provider: Alec Gifford, RN) 500 mg, Oral, Q6H PRN, Muscle [...] Intravenous, Q6H PRN, Nausea, Vom iting, Starting 02/20/18 at 1635, Give 1st line medications then [...] DICATIONS OR LAB DRAW, Line Patency, Starting 02/20/18 at 1635, saline flush 3-5 mL IV before and after lab draws and medications PRN IV maintenance, PACU & Post-op tiZANidine (ZANAFLEX) tablet 2-4 mg 1835 (Given - Prov ider: Shawn Patton RN) 0400 (Given - Provider: Anita bunch RN)1232 (Given - Provider: Alec Gifford, RN)2051 (Given - Provider: Shawn Patton, RADHA) 509 (Given - Provider: Heather Carbajal, RADHA) 2-4 [...] HS
documented in this encounter Care Teams Engraver Hand Hard Metals Relationship Specialty Start Date End Date Jose Holden MD PCP - General Otolaryngology 12/14/[address] [place], [place] [address] [address] documented as of this encounter
--- OUTSIDE RECORDS SUMMARY | 2022-11-06 15:24 | XMS_ITS | Encounter Summary ---
:1965 Author Organization [employer] Address [address] [place] [address] Care Team Providers Name Role Phone Jose Holden MD Primary Care Provider [phone] Reason for Visit Auth/Cert Specialty Diagnoses / [...] Expiration Date Visits Requ ested Visits Authorized [id number] 1 1 Encounter Details Date Type Department Care Team Description 02/20/2018 [facility] Pete Gonzalez MD [address] [place] [address] [place] [address] [phone] (Babatunde billings) Social History Tobacco Use Types [...] 12/02/2022 Appointment Orthopedics Donald Medley MD 1601 [facility] 200 [place], [place] [phone] (Wo rk) 12/31/2022 Appointment Orthopedics Donald Medley MD 1601 [facility] [address] [place] [phone] [...] 12:45 PM CDT Fluoroscopy provided by a distribution engineering technologist. Exact fluoroscopy time is documented in end of exam information in EPIC Pete Gonzalez MD RAD GD documented in this encounter Visit Diagnoses Not on filedocumented in this encounter Care Teams Cold Patcher Relationship Specialty Start Date End Date Jose Holden MD PCP - General Otolaryngology 12/14/17 [address] [place] [id number] documented as of this encounter
--- OUTSIDE RECORDS SUMMARY | 2022-11-06 15:24 | XMS_ITS | Encounter Summary ---
:1965 Author Organization [facility] Address [address] [address] Care Team Providers Name Role Phone Jose Holden MD Primary Care Provider [phone] Encounter Details Date Type Department Care Team Description 02/13/2018 Orders Only External to External, [place] [address] Social History Tobacco Use Types Packs/Day Years [...] 12/02/2022 Appointment Orthopedics Donald Medley MD 1601 [facility] 200 [place] [phone] (Wo rk) 12/31/2022 Appointment Orthopedics Donald Medley MD 1601 [facility] 200 [place], [place] [phone] (Wo rk) documented as [...] filedocumented in this encounter Care Teams Electric Welder Relationship Specialty Start Date End Date Jose Holden MD PCP - General Otolaryngology 12/14/17 [place] [address] documented as of this encounter
--- OUTSIDE RECORDS SUMMARY | 2022-11-06 15:24 | XMS_ITS | Encounter Summary ---
:1965 Author Organization [employer] Address [address] [place] [address] Care Team Providers Name Role Phone Jose Holden MD Primary Care Provider [phone] Reason for Visit Auth/Cert Specialty Diagnoses / [...] Expiration Date Visits Requ ested Visits Authorized [id number] 1 1 Encounter Details Date Type Department Care Team Description 02/21/2018 [facility] Pete Gonzalez MD [address] [place] [address] [place] [address] [phone] (Babatunde billings) Social History Tobacco Use Types [...] 12/02/2022 Appointment Orthopedics Donald Medley MD 1601 [facility] 200 [place], [place] [phone] (Wo rk) 12/31/2022 Appointment Orthopedics Donald Medley MD 1601 [facility] [address] [place] [phone] [...] surgical drain is present. Lois JOSEPH GD documented in this encounter Visit Diagnoses Not on filedocumented in this encounter Care Teams Fan Balancer Relationship Specialty Start Date End Date Jose Holden MD PCP - General Otolaryngology 12/14/[address] [place] [address] documented as of this encounter
--- OUTSIDE RECORDS SUMMARY | 2022-11-06 15:25 | XMS_ITS | Encounter Summary ---
:1965 Author Organization [facility] Address [address], [place] [address] Care Team Providers Name Role Phone Jose Holden MD Primary Care Provider [phone] Reason for Visit Reason Comments QUESTIONS, GENERAL Encounter Details Date Type Department Care Team Description 01/19/2018 Telephone [facility] Pete Gonzalez MD QUESTIONS, GENERAL [facility]Ortho [place], [place] [address] [address] [place] [address] [phone] Social History Tobacco Use Types Packs/Day Years [...] of MRI was received via mail from [facility]. CD given to RN BORER Chava Simon RN - 01/19/2018 12:00 PM CST Patient states she will bring the MRI CD hopefully tomorrow 01/20/2018. Chava Simon RN 01/19/2018, 12:01 PM BORER Gi De La Vega - 01/19/2018 11:47 AM CST Patient calling to speak to RN. Would like to speak to him regarding an MRI CD? Please call her at [phone]. BORER documented in this encounter Plan of Treatment Upcoming Encounters Date Type Specialty Care Team Description 12/02/2022 Appointment Orthopedics Donald Medley MD [address] [facility] [address] [place] [phone] (Wo rk) 12/31/2022 Appointment Orthopedics Donald Medley MD 1601 [facility] [address] [address] [place] [phone] (Wo rk) documented as of this encounter Visit Diagnoses Not on filedocumented in this encounter Care Teams Cellular Equipment Installer Relationship Specialty Start Date End Date Jose Holden MD PCP - General Otolaryngology 12/14/17 [place] [address] documented as of this encounter
--- OUTSIDE RECORDS SUMMARY | 2022-11-06 15:25 | XMS_ITS | Encounter Summary ---
:1965 Author Organization [facility] Address [address] [place] [address] Care Team Providers Name Role Phone Jose Holden MD Primary Care Provider [phone] Encounter Details Date Type Department Care Team Description 12/02/2017 Orders Only External to Pete Gonzalez MD [address] [place] [address] (Wo rk) Social History Tobacco [...] 12/02/2022 Appointment Orthopedics Donald Medley MD 1601 [facility] 200 [place] [phone] (Wo rk) 12/31/2022 Appointment Orthopedics Donald Medley MD 1601 [facility] 200 [place], [place] [phone] (Wo rk) documented as of this encounter Procedures Procedure Name Priority Date/Time Associated Diagnosis Comme nts MRI SPINE--SCAN 12/02/2017 12:00 AM Resul ts for this DEPUTY CHIEF SHERIFF procedure are i n the results section. documented in this encounter Results MRI SPINE--SCAN (12/02/2017 12:00 AM DEPUTY CHIEF SHERIFF) Anatomical Region Laterality Modality Other Specimen (Source) Anatomical Location Collection Method / Collectio n Time Received Time / Laterality Volume 12/02/2017 Narrative This result has an attachment that is no t available. Pete Gonzalez MD DUMMY/OTHER/AR documented in this encounter Visit Diagnoses Not on filedocumented in this encounter Care Teams Director Of Academic Support Relationship Specialty Start Date End Date Jose Hloden MD PCP - General Otolaryngology 12/14/[address] [facility] [place] [address] documented as of this encounter
--- OUTSIDE RECORDS SUMMARY | 2022-11-06 15:25 | XMS_ITS | Encounter Summary ---
:1965 Author Organization [facility] Address [address] [place] [address] Care Team Providers Name Role Phone Jose Holden MD Primary Care Provider [phone] Reason for Visit Procedure/Equipment (Routine) - Incomplete Specialty Diagnoses / Procedures Referred By Contact Refer red To Contact Diagnoses Screening procedure Pseudarthrosis after fusion or arthrodesis Pete Gonzalez MD Procedures FL Video Swallow Study [address] [place] [address] Referral ID Status Reason Start Date Expiration Date Visits V isits Requested Authorized [id number] Incomplete 11/29/2017 02/28/2019 1 1 Encounter Details Date Type Department Care Team Description 12/26/2017 Imaging Pete Orona MD Screening procedure; [facility] 39[address] [facility] Ps eudarthrosis after fusion or arthrodesis Radiology Fluoro S [address] [place] [address] [place] [id number] (Wo rk) Social History Tobacco Use Types [...] 12/02/2022 Appointment Orthopedics Donald Medley MD 1601 [facility] [address] [place] [phone] (Wo rk) 12/31/2022 Appointment Orthopedics Donald Medley MD 1601 [facility] [address] [place] [phone] (Wo rk) documented as of this encounter Procedures Procedure Name Priority Date/Time Associated Diagnosis Comme nts FL VIDEO SWALLOW Routine 12/26/2017 1:03 PM Screening pr ocedure Results for this STUDY COPIER TECHNICIAN Pseudarthrosis after procedu re are in fusion or the results arthrodesis section. documented in this encounter Results FL Video Swallow Study (12/26/2017 1:03 PM COPIER TECHNICIAN) Anatomical Region Laterality Modality Neck, Chest Radio Fluoroscopy Specimen (Source) Anatomical Collection Method Collection Time Re ceived Time Location / / Volume Laterality 12/26/2017 1:03 PM COPIER TECHNICIAN Narrative 12/26/2017 6:00 PM COPIER TECHNICIAN FL VIDEO SWALLOW STUDY 12/26/2017 1:03 PM [...] additional details. Pete Gonzalez MD RAD FL documented in this encounter Visit Diagnoses Diagnosis Screening procedure Screening for unspecified condition Pseudarthrosis after fusion or arthrodes is Arthrodesis status documented in this encounter Administered Medications Inactive Administered Medications - up to 3 most recent administrations Medication Order MAR Action Action Date Dose Rate Site barium sulfate (EZ PAQUE) Given 12/26/2017 1:06 PM COPIER TECHNICIAN 200 mL suspension 200 mL 200 mL, Oral, ONCE (NON-SCHEDULED), Starting on Tue12/26/17 at 1305, For 1 dose barium sulfate (EZ-DISK) tablet 700 mg Given 12/26/2017 1:06 PM COPIER TECHNICIAN 700 mg 700 mg, Oral, ONCE (NON-SCHEDULED), Starting on Tue12/26/17 at 1305, Until Tue12/26/17 at 1306, For 1 dose barium sulfate (EZ-PASTE) oral cream 9 g Given 12/26/2017 1:06 PM COPIER TECHNICIAN 9 g 9 g (15 mL), Oral, ONCE (NON-SCHEDULED), Starting on Tue12/26/17 at 1305, For 1 dose barium sulfate (VARIBAR, TAGITOL V) 40 % Given 12/26/2017 1:06 P M COPIER TECHNICIAN 240 mL suspension 240 mL 240 mL, Oral, ONCE (NON-SCHEDULED), Starting on Tue12/26/17 at 1305, Until Tue02/20/18 at 1710, For 3 doses documented in this encounter Care Teams Bulk Mail Technician Relationship Specialty Start Date End Date Jose Holden MD PCP - General Otolaryngology 12/14/17 [place] [address] documented as of this encounter
--- OUTSIDE RECORDS SUMMARY | 2022-11-06 15:25 | XMS_ITS | Encounter Summary ---
:1965 Author Organization [facility] Address [address] [place] [address] Care Team Providers Name Role Phone Jose Holden MD Primary Care Provider [phone] Encounter Details Date Type Department Care Team Description 12/02/2017 Orders Only External to Pete Gonzalez MD [address] [place] [address] (Wo rk) Social History Tobacco [...] 12/02/2022 Appointment Orthopedics Donald Medley MD 1601 [facility] 200 [place] [phone] (Wo rk) 12/31/2022 Appointment Orthopedics Donald Medley MD 1601 [facility] 200 [place], [place] [phone] (Wo rk) documented as of this encounter Procedures Procedure Name Priority Date/Time Associated Diagnosis Comme nts MRI SPINE--SCAN 12/02/2017 12:00 AM Resul ts for this MANUFACTURING AUTOMATION ENGINEER procedure are i n the results section. documented in this encounter Results MRI SPINE--SCAN (12/02/2017 12:00 AM MANUFACTURING AUTOMATION ENGINEER) Anatomical Region Laterality Modality Other Specimen (Source) Anatomical Location Collection Method / Collectio n Time Received Time / Laterality Volume 12/02/2017 Narrative This result has an attachment that is no t available. Pete Gonzalez MD DUMMY/OTHER/AR documented in this encounter Visit Diagnoses Not on filedocumented in this encounter Care Teams Chinese Instructor Relationship Specialty Start Date End Date Jose Holden MD PCP - General Otolaryngology 12/14/17 [facility] [place] [address] documented as of this encounter
--- OUTSIDE RECORDS SUMMARY | 2022-11-06 15:25 | XMS_ITS | Encounter Summary ---
:1965 Author Organization [facility] Address [address] [place] [address] Care Team Providers Name Role Phone Unassigned, Provider Primary Care Provider Unavailable Encounter Details Date Type Department Care Team Description 01/17/2006 [facility] Curtis Antoine Op Report-Archive [facility] [place] [address] [place] [phone] [place], [place] [id number] Social History Tobacco Use Types Packs/Day Years Used Date Smoking Tobacco: Never Assessed Sex Assigned at Date Recorded Not on file documented as of this encounter Plan of Treatment Upcoming Encounters Date Type Specialty Care Team Description 12/02/2022 Appointment Orthopedics Donald Medley MD [address] [phone] (Wo rk) 12/31/2022 Appointment Orthopedics Donald Medley MD [address] [phone] (Wo rk) documented as of this encounter Visit Diagnoses Not on filedocumented in this encounter Care Teams Stringed Instrument Assembler Relationship Specialty Start Date End Date Unassigned, Provider PCP - General 08/05/03 12/13/[address] [place] [address] documented as of this encounter
--- OUTSIDE RECORDS SUMMARY | 2022-11-06 15:25 | XMS_ITS | Encounter Summary ---
:1965 Author Organization [facility] Address [address] [place] [address] Care Team Providers Name Role Phone Elsewhere, Pcp Primary Care Provider Unavailable Reason for Visit Reason Comments Walking photographer assistant device Fazal and Neurosurgery Encounter Details Date Type Department Care Team Description 09/06/2022 Clinical Communication Department of Robert Diehl photographer assistant Neurology in [place], M.DBritton device ([facility] and [place], [address] [place] [address] Neurosurgery ) [place], [place] [address] [place] [address] [place], [place] [phone] (Work) [phone] Social History Tobacco Use Types Packs/Day Years [...] you attend anglican or Patient refused 2021 mandaeism services? Do [...] in contact with about getting a walking photographer assistant device that will help her get [...] Stroke Cerebrovascular Accident Personal History Claire Aguayo, Shredder Tender Peat 09/06/22 1:47 PM CDT documented in this encounter Plan of Treatment Not on filedocumented as of this encounter Visit Diagnoses Not on filedocumented in this encounter Additional Health Concerns Assessment Noted Time PHQ-9 Depression Total Score: 16 02/11/2021 12:00 AM C DT documented as of this encounter Care Teams Hair And Makeup Designer Relationship Specialty Start Date End Date Elsewhere, Pcp PCP - General Family Medicine 12/25/21 documented as of this encounter
--- OUTSIDE RECORDS SUMMARY | 2022-11-06 15:25 | XMS_ITS | Encounter Summary ---
:1965 Author Organization [facility] Address [address], [place] [address] Care Team Providers Name Role Phone Jose Holden MD Primary Care Provider [phone] Encounter Details Date Type Department Care Team Description 01/20/2018 [facility] Chava Simon RN [place] [facility]ine [address] [place] [phone] Social History Tobacco Use Types Packs/Day Years Used Date Smoking Tobacco: Every Day Cigarettes 0.5 30 Smokeless Tobacco: Never Comments: 30 year smoker on and off Alcohol Use Standard Drinks/Week Comments No 0 (1 standard drink = 0.6 oz pure alcoho l) Sex Assigned at Date Recorded Not on file documented as of this encounter Nursing Notes Chava Simno RN - 01/25/2018 8:24 AM CST Case request placed. Chava Simon RN 01/25/2018, 8:24 AM RAL OPHTHALMOLOGIST Chava Simon RN - 01/24/2018 12:[address] Gonzalez reviewed imaging and is waiting until appropriate time to place case request. Chava Simon RN 01/24/2018, 12:45 PM RAL OPHTHALMOLOGIST Gi De La Vega - 01/20/2018 11:21 AM CST Patient called to speak to RN. She has a new phone number. Please call her at [phone]. thanks RAL OPHTHALMOLOGIST Chava Simon RN - 01/20/2018 11:15 AM CST Images from the original note were not included. Team please have Dr. Gonzalez review imaging which is now on PACs and place case request. Chava Simon RN 01/20/2018, 11:18 AM RAL OPHTHALMOLOGIST documented in this encounter Plan of Treatment Upcoming Encounters Date Type Specialty Care Team Description 12/02/2022 Appointment Orthopedics Donald Medley MD 1601 [facility] [address] [place] [phone] (Wo rk) 12/31/2022 Appointment Orthopedics [facility] Medley MD [facility] [address] [place] [phone] (Wo rk) documented as of this encounter Visit Diagnoses Not on filedocumented in this encounter Care Teams Clerical Administrator Relationship Specialty Start Date End Date Jose Holden MD PCP - General Otolaryngology 12/14/17 [facility] [place] [address] documented as of this encounter
--- OUTSIDE RECORDS SUMMARY | 2022-11-06 15:25 | XMS_ITS | Encounter Summary ---
:1965 Author Organization [facility] Address [address] [place] [address] Care Team Providers Name Role Phone Unassigned, Provider Primary Care Provider Unavailable Encounter Details Date Type Department Care Team Description 12/13/2006 [facility] Curtis Antoine Op Report-Archive [facility] [place] [address] [place] [phone] [place], [place] [phone] Social History Tobacco Use Types Packs/Day Years Used Date Smoking Tobacco: Never Assessed Sex Assigned at Date Recorded Not on file documented as of this encounter Plan of Treatment Upcoming Encounters Date Type Specialty Care Team Description 12/02/2022 Appointment Orthopedics Donald Medley MD [address] [phone] (Wo rk) 12/31/2022 Appointment Orthopedics Donald Medley MD [address] [phone] (Wo rk) documented as of this encounter Visit Diagnoses Not on filedocumented in this encounter Care Teams Diagnostic Sales Specialist Relationship Specialty Start Date End Date Unassigned, Provider PCP - General 08/05/03 12/13/17 [address] [place] [address] documented as of this encounter
--- OUTSIDE RECORDS SUMMARY | 2022-11-06 15:25 | XMS_ITS | Encounter Summary ---
:1965 Author Organization [facility] Address [address], [place] [address] Care Team Providers Name Role Phone Jose Holden MD Primary Care Provider [phone] Encounter Details Date Type Department Care Team Description 01/17/2018 [facility] Chava Simon RN [place] [facility]/ Ortho Spine [address] [place] [address] Social History Tobacco Use Types Packs/Day [...] in. Chava Simon RN 01/17/2018, 1:26 PM ATION SAFETY OFFICER documented in this encounter Plan of Treatment Upcoming Encounters Date Type Specialty Care Team Description 12/02/2022 [place] [address] [place] [address] [address] [place] [phone] (Wo rk) 12/31/2022 Appointment Orthopedics Donald Medley MD 1601 [facility] [address] [place] [phone] (Wo rk) documented as of this encounter Visit Diagnoses Not on filedocumented in this encounter Care Teams Sales Department Supervisor Relationship Specialty Start Date End Date Jose Holden MD PCP - General Otolaryngology 12/14/17 [address] [place] [id number] documented as of this encounter
--- OUTSIDE RECORDS SUMMARY | 2022-11-06 15:25 | XMS_ITS | Encounter Summary ---
:1965 Author Organization [facility] Address [address] [place] [address] Care Team Providers Name Role Phone Elsewhere, Pcp Primary Care Provider Unavailable Reason for Visit Reason Comments Med Refill Encounter Details Date Type Department Care Team Description 07/19/2022 Refill Division of [facility] Internal H Hoda parmar M.D. Med Refill Medicine, [facility], [place] [address] [place] [address] [place], [place] [address] [phone] Social History Tobacco Use Types Packs/Day Years [...] you attend sabianist or Patient refused 2021 baptist services? Do [...] as of this encounter Care Teams It Consultant Relationship Specialty Start Date End Date Elsewhere, Pcp PCP - General Family Medicine 12/25/21 documented as of this encounter
--- OUTSIDE RECORDS SUMMARY | 2022-11-06 15:25 | XMS_ITS | Encounter Summary ---
:1965 Author Organization [facility] Address [address] [place] [address] Care Team Providers Name Role Phone Unassigned, Provider Primary Care Provider Unavailable Encounter Details Date Type Department Care Team Description 11/04/2005 [facility] Antoine Op Report-Archive [facility] [place] [address] [phone] [place], [place] [id number] Social History Tobacco Use Types Packs/Day Years Used Date Smoking Tobacco: Never Assessed Sex Assigned at Date Recorded Not on file documented as of this encounter Plan of Treatment Upcoming Encounters Date Type Specialty Care Team Description 12/02/2022 Appointment Orthopedics Donald Medley MD [address] [phone] (Wo rk) 12/31/2022 Appointment Orthopedics Donald Medley MD [address] [phone] (Wo rk) documented as of this encounter Visit Diagnoses Not on filedocumented in this encounter Care Teams Photograph Tinter Relationship Specialty Start Date End Date Unassigned, Provider PCP - General 08/05/03 12/13/17 [address] [place] [address] documented as of this encounter
--- OUTSIDE RECORDS SUMMARY | 2022-11-06 15:25 | XMS_ITS | Encounter Summary ---
:1965 Author Organization [facility] Address [address] [place] [address] Care Team Providers Name Role Phone Elsewhere, Pcp Primary Care Provider Unavailable Reason for Visit Reason Comments Pre-visit Intake Encounter Details Date Type Department Care Team Description 09/01/2022 Clinical Communication Visit Review in Pr e-visit Intake [place], [place] [address] [place] [address] Social History Tobacco Use Types [...] you attend jew or Patient refused 2021 islam services? Do [...] documented as of this encounter Care Teams Earth Science Professor Relationship Specialty Start Date End Date Elsewhere, Pcp PCP - General Family Medicine 12/25/21 documented as of this encounter
--- OUTSIDE RECORDS SUMMARY | 2022-11-06 15:25 | XMS_ITS | Encounter Summary ---
:1965 Author Organization [facility] Address [address] [place] [address] Care Team Providers Name Role Phone Jose Holden MD Primary Care Provider [phone] Reason for Referral Consult/Transfer Care (Routine) - Closed Specialty Diagnoses / Procedures Referred By Contact Refer red To Contact Neurosurgery Diagnoses Pseudarthrosis after fusion or arthrodesis Pete Gonzalez MD [facility] [address] [place] [address] [place] [address] Phone: Fax: Referral ID Status Reason Start Date Expiration Date Visits Requ ested Visits Authorized [id number] Closed 01/17/2018 04/18/2019 1 1 Scheduling Instructions Your provider has recommended an appoint ment for a pre-operative pain consult with [facility] You may call [phone] to schedule your appointment.?? If you prefer, a mirela billy will contact you within the next 3 business days to assist you in setting u p this appointment. PRESIDENT FOR PHILANTHROPY Reason for Visit Reason Comments Revisit Encounter Details Date Type Department Care Team Description 01/17/2018 Office Visit Pete Watson, Pseudarthr osis after [facility] MD fusion or arthrodesis Neurosurgery/Ortho [address] [place] (Primar y Dx) [facility] [address] [place] [address] [place] [address] [phone] Social History Tobacco Use Types Packs/Day Years [...] Comments Blood Pressure 137/83 01/17/2018 11:51 AM VICE PRESIDENT FOR PHILANTHROPY Pulse 83 01/17/2018 11:51 AM VICE PRESIDENT FOR PHILANTHROPY Temperature 36.5 ??C (97.7 ??F) 01/17/2018 11:51 AM VICE PRESIDENT FOR PHILANTHROPY Respiratory Rate 16 01/17/2018 11:51 AM VICE PRESIDENT FOR PHILANTHROPY Oxygen Saturation - - Inhaled Oxygen Concentration [...] business days) Please call Ana Rosa at [phone] if you have not heard from her. [...] prior to surgery. Please fax preops to [phone] Nothing to eat or drink from midnight [...] and Apply plenty of Hibiclens*, a special sack cleaner, to a clean, wet washcloth. Wash [...] Contact Information for Post Operative Care On week between the hours of 8am-5pm, please call the Neurosurgery Clinic at [phone] if youhave any concerns related to your surgery before going to the Emergency Room, your family physician,or an Urgent Care. After hours call the [facility] at [phone]. PAIN MEDICATION POLICY The Department of Neurosurgery [...] duringweekend hours. Day of surgery, arrive at [facility] [place] on 3rd floor 2 hours prior to surgery. The Same Day Surgery Nurses will call you 1-3 days prior to surgery to inform you what time you should arrive for your surgery. If they do not reach you, please call if your surgery is at [facility]. Review your surgery packet. Contact the Neurosurgery Center [phone] if you have any questions or concerns PRESIDENT FOR PHILANTHROPY documented in this encounter Progress Notes Pete [...] is prone to typos and grammatical errors. PRESIDENT FOR PHILANTHROPY documented in this encounter Plan of Treatment Upcoming Encounters Date Type Specialty Care Team Description 12/02/2022 Appointment Orthopedics Donald Medley MD 16[address] [facility] [address] [place], [place] [phone] (Wo rk) 12/31/2022 Appointment Orthopedics Donald Medley MD [address] [facility] [address] [place], [place] [phone] (Wo rk) Scheduled Referrals Name Type Priority Associated Diagnoses Order S chedule PRE-OP PAIN CONSULT Referral Routine Pseudarthrosis after fusion Ordered: 01/17/2018 - ADULT or arthrodesis documented as of this encounter Procedures Procedure Name Priority Date/Time Associated Diagnosis Comme nts MRSA/MSSA PRE-OP Routine 01/17/2018 1:48 PM Pseudarthrosis aft er Results for this CULTURE VICE PRESIDENT FOR PHILANTHROPY fusion or arthrodesis proced ure are in the results section. documented in this encounter Results MRSA/MSSA Pre-Op Culture (01/17/2018 1:48 PM VICE PRESIDENT FOR PHILANTHROPY) Component Value Ref Test Analysis Performed At [facility] Range Method Time Signature Specimen Nose Swab [facility] Description LABORATORIES Special Unspecified [facility] Requests LABORATORIES Culture No Staphylococcus [facility] aureus Isolated LABORATORIES Report Status 01/18/2018 [facility] Final LABORATORIES Specimen Anatomical Collection Method Collection Time Receive d Time (Source) Location / / Volume Laterality Nasal swab taken NASAL STRUCTURE / 01/17/2018 1:48 PM 01/17/2018 1:49 (situation) Unknown VICE PRESIDENT FOR PHILANTHROP[facility] PM VICE PRESIDENT FOR PHILANTHROPY Pete Gonzalez MD LAB_1 Performing Organization Address City/State/ZIP Code Phon e Number [facility] [phone] documented in this encounter Visit Diagnoses Diagnosis Pseudarthrosis after fusion or arthrodes is - Primary Arthrodesis status documented in this encounter Care Teams Menhaden Vessel Pilot Relationship Specialty Start Date End Date Jose Holden MD PCP - General Otolaryngology 12/14/[address] [place], [place] [address] [address] documented as of this encounter
--- OUTSIDE RECORDS SUMMARY | 2022-11-06 15:25 | XMS_ITS | Clinical Summary ---
:1965 Author Organization [facility] Address [address] [place] [address] Care Team Providers Name Role Phone Elsewhere, Pcp Primary Care Provider Unavailable Source Comments Patient records contain information from all sites at [facility]. For routine questions regarding patient records, call [phone] during business hours, M-F 8:00 AM - 5:00 PM Central Time. Record requests for emergency care only can be directed to [phone] at any time.[facility] Allergies Active Allergy Reactions Severity Noted [...] 10/13/2017 Other lashaun ction(s): (see comments) Contact [place] titis Gabapentin Other (see comments) Low 05/12/2017 [...] 80 mg oral Daily, Reported on 06/21/2022 gghpqwdupv-ahmccxmfuwwmm-lchi Take 1 tablet by 0 12/2020 Active [...] by 0 01/28 Active mouth at bedtime. multivit-min/iron/folic/bry107 Take 1 tablet by 0 Active (HAIR, SKIN AND NAILS ADVANCED mouth daily. ORAL) sennosides-docusate sodium Take 1 tablet by 0 2021 Active (SENOKOT-S) 8.6-50 mg per tablet mouth 2 (two) times a day. aspirin 325 mg tablet Take 1 tablet 0 02/27/2022 Active (325 mg total) by mouth every evening. naloxone (NARCAN) 4 mg/actuation Administer 1 0 02/27 Active nasal spray spray into one nostril as directed. SPRAY 0.1 MILLILITER BY INTRANASAL ROUTE IN 1 NOSTRIL MAY REPEAT DOSE EVERY 2-3 MINUTES NEEDED ALTERNATING NOSTRILS rizatriptan (MAXALT) 10 mg tablet Take 1 tablet by 0 05/05/2022 Active mouth as directed. May repeat every 2hrs as needed (Max 30mg/24hrs) furosemide (LASIX) 40 mg tablet Take 1 tablet 0 05/29 Active (40 mg total) by mouth daily. esomeprazole (NexIUM) [address] Take 1 capsule 30 capsule 1 Active capsule (40 mg total) by mouth every morning before breakfast. acetaminophen (TYLENOL 8 HR) 650 Take 1,300 mg by 0 Active mg ER tablet mouth 3 (three) times a day. cholecalciferol (VITAMIN D3) 125 Take 5,000 Units 0 06/07/2022 Active mcg (5,000 Unit) capsule by mouth daily. Banophen 25 mg capsule Take 25-50 mg by 0 06/08/2022 Active mouth every 4 (four) hours as needed. cyanocobalamin, vitamin B-12, Place 5,000 mcg 0 05/28 Active 2,500 mcg tablet, sublingual under the tongue daily. [...] 0 0 06/22/2022 Active mouth at bedtime. doxycycline monohydrate (ADOXA) TAKE 1 TABLET BY 28 tablet 0 0 02/26/2022 04/0 Active 100 mg tablet MOUTH TWO TIMES 20 A DAY FOR 14 23 DAYS Active Problems Problem Noted Date Weakness General [...] Added automatically from request for lonnie li [id number] Nicotine Dependence Unspecified 11/29/2017 Other Medical Device Sales Consultant Current Drug Therapy 12/30/2016 Opioid Moderate Or Severe Use Disorder (Dependence) Un complicated 08/27/2016 Bipolar II Disorder 09/27/2007 Transient Ischemic Attack Encounters Date Type Specialty Care Team Description 09/28/2022 Clinical Orthopedic Surgery Prescheduling, Communication Provider 09/06/2022 Documentation Orthopedic Surgery Cyrus Polk M.D. 09/06/2022 Clinical Neurology Robert Diehl Walking tony Celaya M.D. device ([facility] and Neurosurgery ) 09/06/2022 Clinical Orthopedic Surgery Cyrus Polk M.D. 09/01/2022 Clinical Admitting/Central Pre-visit Intake Communication Scheduling 08/09/2022 Clinical Orthopedic Surgery Cyrus Polk Return Visit Veronica Souza M.D. from Last 3 Months Immunizations [...] you attend zoroastrian or Patient refused 2021 quaker services? Do [...] 2-dose series) Depression Screening (Annual 11/28/2021 PHQ-2) Office Visit for Blood Pressure 12/29/2022 12/29/2021 [...] Discontinued 07/23/2016 Zoster Vaccines Completed 09/11/2021, 09/13/2020 Influenza Vaccine Completed 10/27/2022, 10/12/2021, 09/13/2020, Additional history exists Medical Devices Implanted Type Area Optical Effects Line Up Person Device Shelf Model / Identifier Expiration Serial / Date Lot Cmnt Bn Sm 20gm - [id number] Bone Cement Left: Nato [id number] / Implanted: Qty: 1 on 12/30/2021 by Cyrus Panchal M.D. at [facility] Shoulder / Grft Dbm Grf Obl Ld 15 - [id number] - [id number] Bone or Tis lebron Left: Medtronic 10/14/2023 [id number] / Implanted: Qty: 1 on 02/26/2022 at [facility] Shoulder [id number] / 4mm Amplatz Micro Plug Embolization Brain Amplatzer [id number] / Implanted: Qty: 1 on 02/16/2021 by Mustapha Posey M.D. at [facility] Coil Quality Assurance Practice Manager / Dayo [id number] Description: MRI Conditional at 1.5T or 3T Max Whole Body YUSEF of 4 W/kg. AAC 2020 [email or web address]://[email or web address]/products/ Hardware E.G. Hardware e.g. Neck Pins/Screws/Rods pins/screws/rods Scrw Cmp Pthrd 6.5x25 - [id number] Hardware e.g. Left: Trevor B iomet 12/29 [id number] / Implanted: Qty: 1 on 02/26/2022 at [facility] pins/screws/rods Shoulder 05/17 [id number] Knee Implant Knee Implant Bilateral: Knee Plg Ocl Amp Avpii 6 - [id number] Mesh or Patch Pedersen 07/31 [id number] / Implanted: Qty: 1 on 02/16/2021 by Mustapha Posey M.D. at [facility] [id number] Shoulder Implant Shoulder Implant Left: Shoulder Bsplt Glnd Cmp Rv Aug Sm - [id number] Shoulder Implant Left: Trevor Biomet 01/26 [id number] / Implanted: Qty: 1 on 02/26/2022 at [facility] Shoulder [id number] [facility] Cmp Rvrs Prim Mini 9 - [id number] Shoulder Implant Le ft: Trevor Biomet 08/28 [id number] / Implanted: Qty: 1 on 05/18/2022 by Cyrus Panchal M.D. at [facility] Shoulder 02/14 [id number] Medtronic Spinal Cord Stimulator Spinal Cord Back Medtronic [id number] / Implanted: 06/30/2020 (Quantity not on file) Stimulator [id number] / [id number] Description: Medtronic BrightNestlis Spinal Cord Stimulator model #39707. As of 06/17/22, the stimulator IPG is [...] as of 03-19-21 SDN Explanted Type Area Optical Effects Line Up Person Device Shelf Model / Identifier Expiration Serial / Date Lot [facility] Hd Vrs Dl [id number] - [id number] Shoulder Left: Trevor Biom et 05/29/2031 [id number] / Implanted: Qty: 1 on 12/30/2021 by Cyrus Panchal M.D. at [facility] Implant Shoulder / Explanted: Qty: 1 on 02/26/2022 at [facility] [id number] [facility] Cmp Rvrs Prim Std 10 - [id number] Shoulder Left: Zi mmer Biomet 12/16/2029 [id number] / Implanted: Qty: 1 on 02/26/2022 at [facility] Implant Shoulder / Explanted: Qty: 1 on 05/18/2022 at [facility] [id number] Spinal Cord Stimulator Spinal Cord Pelvis Nevro Explanted: 03/10/2020 (Quantity not on file) Stimulator Description: Device was explanted on 02-26 per [employer] Support. HEMALATHA 03-19-21 Insurance Payer Benefit Plan / Subscriber ID Effective Phone Address T ype Group Dates MEDICARE MEDICARE A AND B [id number] 2012-Pre [address] [facility] [place] [address] MEDICA MEDICA [id number] 2018-Pres [phone] [address] Medica id HMO ACCESSABILITY ent [phone] [place] [address] Advance Directives For more information, please contact: [phone] Latest Code Status on File Code Status [...] Answer Comments Full Code: Discussed Care Teams Chip Frier Relationship Specialty Start Date End Date Elsewhere, Pcp PCP - General Family Medicine 12/25/21
--- OUTSIDE RECORDS SUMMARY | 2022-11-06 15:25 | XMS_ITS | Encounter Summary ---
:1965 Author Organization [facility] Address [address] [place] [address] Care Team Providers Name Role Phone Elsewhere, Pcp Primary Care Provider Unavailable Reason for Referral Outpatient (Routine) - Authorized Specialty Diagnoses / Procedures Referred By Contact Refer red To Contact Diagnoses Pain Shoulder Left Alfredo Herrera O.P.A.-C. [facility] Procedures DX Shoulder Left 2+ Views [address] [place], [place] [id number] Referral ID Status Reason Start Date Expiration Date Visits V isits Requested Authorized [id number] Authorized 08/09/2022 08/09/2023 1 1 Reason for Visit Reason Comments Return Visit Encounter Details Date Type Department Care Team Description 08/09/2022 Clinical Communication Department of Cyrus Polk Visit Orthopedic Surgery in [place], [place] [address] [place] [address] 200 [place] [address] [phone] Social History Tobacco Use Types Packs/Day Years [...] you attend presybeterian or Patient refused 2021 roman catholic services? Do you belong to any clubs or No 05/17/2022 organizations such as presybeterian groups, unions, fraMetwit or athletic groups, or school groups? How [...] documented as of this encounter Care Teams Wound Nurse Relationship Specialty Start Date End Date Elsewhere, Pcp PCP - General Family Medicine 12/25/21 documented as of this encounter
--- OUTSIDE RECORDS SUMMARY | 2022-11-06 15:25 | XMS_ITS | Encounter Summary ---
:1965 Author Organization [facility] Address [address], [place] [address] Care Team Providers Name Role Phone Unassigned, Provider Primary Care Provider Unavailable Reason for Referral Procedure/Equipment (Routine) - Incomplete Specialty Diagnoses / Procedures Referred By Contact Clyde bains To Contact Diagnoses Screening procedure Pseudarthrosis after fusion or arthrodesis Pete Gonzalez MD Procedures FL Video Swallow Study [address] [place] [address] Referral ID Status Reason Start Date Expiration Date Visits V isits Requested Authorized [id number] Incomplete 11/29/2017 02/28/2019 1 1 herapies (Routine) - Closed Specialty Diagnoses / Procedures Referred By Contact Clyde bains To Contact Diagnoses Pseudarthrosis after fusion or arthrodesis Screening procedure Pete Gonzalez MD [address] [place] [address] Referral ID Status Reason Start Date Expiration Date Visits Requ ested Visits Authorized [id number] Closed 11/29/2017 01/28/2018 1 1 Scheduling Instructions Your provider has recommended an appoint ment with a [facility]. Please stop at the clinic check out desk for as sistance with scheduling or if you prefer to call for your appointment you may call [facility] at [phone]. We suggest you call your [facility] insurance company about your coverage and benefits for this appointment. OGRAPH II ENGRAVER Consult/Transfer Care (Routine) - Closed Specialty Diagnoses / Procedures Referred By Contact Refer red To Contact Diagnoses Pseudarthrosis after fusion or arthrodesis Screening procedure Pete Gonzalez MD [address] [place] [address] Referral ID Status Reason Start Date Expiration Date Visits Requ ested Visits Authorized [id number] Closed 11/29/2017 02/28/2019 1 1 Scheduling Instructions Your provider has recommended an appoint ment with [facility]. You may call [phone], Hello [employer] 3, to schedule your appointment. If you prefer, a planner/scheduler will contact you heena hebert the next 3 business days to assist you in setting up this appointment. We suggest you call your health insurance company about your coverage and benefits for this appo intment. OGRAPH II ENGRAVER Procedure/Equipment (Routine) - Incomplete Specialty Diagnoses / Procedures Referred By Contact Refer red To Contact Diagnoses Screening procedure Pseudarthrosis after fusion or arthrodesis Pete Gonzalez MD Procedures XR Cervical Spine W Flex And Ext [address] [place] [address] Referral ID Status Reason Start Date Expiration Date Visits V isits Requested Authorized [id number] Incomplete 10/31/2017 01/30/2019 1 1 OGRAPH II ENGRAVER Reason for Visit Reason Comments SECOND OPINION Consult/Transfer Care (Routine) - Closed Specialty Diagnoses / Procedures Referred By Contact Refer red To Contact Neurosurgery Ihsan Brooke MD [facility] Neurosurgery/Ortho [facility] [place] [address] [address] [facility] [place] [address] Phone: Fax: Referral ID Status Reason Start Date Expiration Date Visits Requ ested Visits Authorized [id number] Closed 09/26/2017 12/26/2018 1 1 Encounter Details Date Type Department Care Team Description 11/29/2017 Office Visit [facility] Pete Gonzalez, Pseudarthr osis after fusion or arthrodesis (Primary Dx); Neuroscience Center Cervical spondylosis with radiculopathy; Neurosurgery/Ortho [address] [place] Bil[address] al occipital neuralgia; [address] Screening procedure [address] [place] [address] [place] [address] [phone] Social History Tobacco Use Types Packs/Day Years Used Date Smoking Tobacco: Every Day Cigarettes 0.5 Smokeless Tobacco: Never Alcohol Use Standard Drinks/Week Comments No 0 (1 standard drink = 0.6 oz pure alcoho l) Sex Assigned at Date Recorded Not on file documented as of this encounter Last Filed Vital Signs Vital Sign Reading Time Taken Comments Blood Pressure 126/77 11/29/2017 10:21 AM PANTOGRAPH II ENGRAVER Pulse 77 11/29/2017 10:21 AM PANTOGRAPH II ENGRAVER Temperature - - Respiratory Rate - - Oxygen Saturation - - Inhaled Oxygen Concentration - - Weight 75.4 kg (166 lb 3.2 oz) 11/29/2017 10:21 AM PANTOGRAPH II ENGRAVER Height 152.4 cm (5') 11/29/2017 10:21 AM PANTOGRAPH II ENGRAVER Body Mass Index 32.46 11/29/2017 10:21 AM PANTOGRAPH II ENGRAVER documented in this encounter Patient Instructions Patient InstructionsChava Simon RN - 11/29/2017 10:00 AM CST [facility] Patient Instructions Tests: You will be [...] your understanding. Please call the Neurosurgery Center [phone] with any further questions or concerns or if your symptoms worsen. Thank you for coming to see us today. We are your partner. OGRAPH II ENGRAVER documented in this encounter Progress Notes Lois [...] after C3-T1 posterior cervical fusion done at [facility] in [place] multiple years ago. The T1 screws are [...] on fentanyl, ms contin and oxycontin in [place]. PSURGHX:No past surgical history on file. PMEDHX:No past medical history on file. MEDICATIONS: Outpatient Prescriptions as of 11/29/2017: benzonatate (TESSALON) 100 MG capsule Take 100 mg by mouth. Note (11/29/2017): Received from: [facility] Received Sig: Take 1 capsule by mouth 3 times daily if needed for Cough. Disp: Rfl: budesonide-formoterol (SYMBICORT) 160-4.5 MCG/ACT inhaler Inhale 2 Puffs. Note (11/29/2017): [facility] Received Sig: INHALE 2 PUFFS BY MOUTH [...] Tab by mouth. Note (11/29/2017): Received from: [facility] Received Sig: Take 1 tablet bymouth [...] on file ROS: Reviewed per [facility] Neurosurgery New Patient Health Packet History was [...] 4/5 C7 Triceps: 5/5 4/5 C8 Finger flexors/rn post partum: 5/5 5/5 T1 Intrinsics: 5/5 5/5 Sensation: Intact with light touch bue/ble. Skin: Warm to touch to bilateral upper/lower extremities. No skin rashes or lesions noted RADIOLOGY: Personally reviewed CT scans from OSH as well as XR from here. No formal report for either available. Shows previous C3-T1 posterior fusion, appears fused C3-C6, screws at T1 appear lose. Z3twghfu through the facet joint. ASSESSMENT: 52 year old female s/p multiple previous cervical spine surgeries including C3-T1 posterior fusion (done in [place] approx 6 [...] send a copy of the chart to: Ihasn Brooke MD [address] [place] [address] Lois Pham PA-C, 11/29/2017, 12:34 PM OGRAPH II ENGRAVER documented in this encounter Plan of Treatment Upcoming Encounters Date Type Specialty Care Team Description 12/02/2022 Appointment Orthopedics Donald Medley MD [address] [facility] [address] [place] [phone] (Wo rk) 12/31/2022 Appointment OrthopedicDonald Thomas MD [address] [facility] [address] [place] [phone] (Wo rk) Scheduled Referrals Name Type Priority Associated Diagnoses Order S chedule Otolaryngology Consult Referral Routine Pseudarthrosis aft er Ordered: Adult/Peds fusion or arthro desis 11/29/2017 Screening procedure Speech Therapy Referral Routine Pseudarthrosis after Order ed: fusion or arthro desis 11/29/2017 Screening procedure documented as of this encounter Results FL Video Swallow Study (12/26/2017 1:03 PM PANTOGRAPH II ENGRAVER) Anatomical Region Laterality Modality Neck, Chest Radio Fluoroscopy Specimen (Source) Anatomical Collection Method Collection Time Re ceived Time Location / / Volume Laterality 12/26/2017 1:03 PM PANTOGRAPH II ENGRAVER Narrative 12/26/2017 6:00 PM PANTOGRAPH II ENGRAVER FL VIDEO SWALLOW STUDY 12/26/2017 1:03 PM [...] W Flex And Ext (11/29/2017 9:54 AM PANTOGRAPH II ENGRAVER) Anatomical Region Laterality Modality Spine, C-Spine, Neck Computed Radiograph y Specimen (Source) Anatomical Collection Method Collection Time Re ceived Time Location / / Volume Laterality 11/29/2017 9:54 AM PANTOGRAPH II ENGRAVER Narrative 11/29/2017 10:59 AM PANTOGRAPH II ENGRAVER XR CERVICAL SPINE W FLEX AND EXT [...] status documented in this encounter Care Teams Software Requirements Engineer Relationship Specialty Start Date End Date Unassigned, Provider PCP - General 08/05/03 12/13/[address] [place] [address] documented as of this encounter
--- OUTSIDE RECORDS SUMMARY | 2022-11-06 15:25 | XMS_ITS | Encounter Summary ---
:1965 Author Organization [facility] Address [address] [place] [address] Care Team Providers Name Role Phone Elsewhere, Pcp Primary Care Provider Unavailable Encounter Details Date Type Department Care Team Description 09/28/2022 Clinical Communication Department of Prescheduling, Orthopedic Surgery in [place], [place] [address] [place] [address] Social History Tobacco Use Types Packs/Day Years [...] this encounter Miscellaneous Notes Telephone Encounter - Alice Mike - 09/28/2022 4:11 PM CDT [facility] ORTHO HIP/KNEE PRE-SCHEDULING QUESTION SET documented in this encounter Plan of Treatment Not on filedocumented as of this encounter Visit Diagnoses Not on filedocumented in this encounter Additional Health Concerns Assessment Noted Time PHQ-9 Depression Total Score: 16 02/11/2021 12:00 AM C DT documented as of this encounter Care Teams Gasoline Plant Operator Relationship Specialty Start Date End Date Elsewhere, Pcp PCP - General Family Medicine 12/25/21 documented as of this encounter
--- OUTSIDE RECORDS SUMMARY | 2022-11-06 15:25 | XMS_ITS | Encounter Summary ---
:1965 Author Organization [facility] Address [address] [place] [address] Care Team Providers Name Role Phone Jose Holden MD Primary Care Provider [phone] Encounter Details Date Type Department Care Team Description 12/02/2017 Orders Only External to Pete Gonzalez MD [address] [place] [address] (Wo rk) Social History Tobacco [...] Medley MD [address] [facility] [address] [place] [phone] (Wo rk) 12/31/2022 Appointment Orthopedics Donald Medley MD [address] [facility] [address] [place], [place] [phone] (Wo rk) documented as of this encounter Procedures Procedure Name Priority Date/Time Associated Diagnosis Comme nts MRI SPINE--SCAN 12/02/2017 12:00 AM Resul ts for this CORRAL BOSS procedure are i n the results section. documented in this encounter Results MRI SPINE--SCAN (12/02/2017 12:00 AM CORRAL BOSS) Anatomical Region Laterality Modality Other Specimen (Source) Anatomical Location Collection Method / Collectio n Time Received Time / Laterality Volume 12/02/2017 Narrative This result has an attachment that is no t available. Pete Gonzalez MD DUMMY/OTHER/AR documented in this encounter Visit Diagnoses Not on filedocumented in this encounter Care Teams Engineering Leader Relationship Specialty Start Date End Date Jose Holden MD PCP - General Otolaryngology 12/14/[address] [facility] [place] [place] [address] documented as of this encounter
--- OUTSIDE RECORDS SUMMARY | 2022-11-06 15:25 | XMS_ITS | Encounter Summary ---
:[address] [facility] Address [address] [place] [address] Care Team Providers Name Role Phone Elsewhere, Pcp Primary Care Provider Unavailable Encounter Details Date Type Department Care Team Description 09/06/2022 Documentation Department of Orthopedic Cyrus Polk, Surgery in [facility] 200 [facility] [address] [place] [address] [phone] (Wo rk) Social History Tobacco Use Types [...] you attend scientologist or Patient refused 2021 denominational services? Do [...] or the highest technical, or vocational p Couchsurfingram degree you have received? Sex Assigned at [...] Cyrus Polk M.D. CT CT Job ID: [id number] documented in this encounter Plan of Treatment Not on filedocumented as of this encounter Visit Diagnoses Not on filedocumented in this encounter Additional Health Concerns Assessment Noted Time PHQ-9 Depression Total Score: 16 02/11/2021 12:00 AM C DT documented as of this encounter Care Teams [place] Polisher Operator Relationship Specialty Start Date End Date Elsewhere, Pcp PCP - General Family Medicine 12/25/21 documented as of this encounter
--- OUTSIDE RECORDS SUMMARY | 2022-11-06 15:25 | XMS_ITS | Encounter Summary ---
:1965 Author Organization [facility] Address [address], [place] [address] Care Team Providers Name Role Phone Jose Holden MD Primary Care Provider [phone] Reason for Visit Reason Comments Other Encounter Details Date Type Department Care Team Description 01/17/2018 [facility] Chava Simon RN Other Center Neurosurgery/ Ortho Spine [address] [place] [address]. [place] [address] Social History Tobacco Use Types [...] clinic. Chava Simon RN 01/18/2018, 8:42 AM Michael Nguyễn - 01/17/2018 3:46 PM CST Patient called in stating she will drop off her CD in clinic tomorrow. However she wants to make sure RADHA Bowie also has a copy of her neck pictures ready for her as well. Patient states she had alreadyspoken to RADHA Bowie about this. Please advise Michael Cruz 01/17/2018, 3:47 PM UATION SPECIALIST documented in this encounter Plan of Treatment Upcoming Encounters Date Type Specialty Care Team Description 12/02/2022 Appointment Orthopedics Donald Medley MD [address] [facility] [place] [phone] (Wo rk) 12/31/2022 Appointment Orthopedics Donald Medley MD [address] [facility] [place] [phone] (Wo rk) documented as of this encounter Visit Diagnoses Not on filedocumented in this encounter Care Teams Mirror Installer Relationship Specialty Start Date End Date Jose Holden MD PCP - General Otolaryngology 12/14/17 Chad [address] [place], [place] [id number] documented as of this encounter
--- OUTSIDE RECORDS SUMMARY | 2022-11-06 15:25 | XMS_ITS | Encounter Summary ---
:1965 Author Organization [facility] Address [address] [address] Care Team Providers Name Role Phone Unassigned, Provider Primary Care Provider Unavailable Reason for Visit Procedure/Equipment (Routine) - Incomplete Specialty Diagnoses / Procedures Referred By Contact Refer red To Contact Diagnoses Screening procedure Pseudarthrosis after fusion or arthrodesis Pete Gonzalez MD Procedures XR Cervical Spine W Flex And Ext [address] [place] [address] Referral ID Status Reason Start Date Expiration Date Visits V isits Requested Authorized [id number] Incomplete 10/31/2017 01/30/2019 1 1 Encounter Details Date Type Department Care Team Description 11/29/2017 [facility] Screening procedure Neuroscience Center [address] [facility] Radiology [place], [place] [address] [address] [place] [address] [phone] Social History Tobacco Use Types Packs/Day Years [...] 12/02/2022 Appointment Orthopedics Donald Medley MD [address] [facility] [address] [place], [place] [phone] (Wo rk) 12/31/2022 Appointment Orthopedics Donald Medley MD [address] [facility] [address] [place] [phone] (Wo rk) documented as of this encounter Procedures Procedure Name Priority Date/Time Associated Diagnosis Comme nts XR CERVICAL SPINE W Routine 11/29/2017 9:54 AM Screening proce dure Results for this FLEX AND EXT INTERN ARCHITECT procedure are i n the results section. documented in this encounter Results XR Cervical Spine W Flex And Ext (11/29/2017 9:54 AM INTERN ARCHITECT) Anatomical Region Laterality Modality Spine, C-Spine, Neck Computed Radiograph y Specimen (Source) Anatomical Collection Method Collection Time Re ceived Time Location / / Volume Laterality 11/29/2017 9:54 AM INTERN ARCHITECT Narrative 11/29/2017 10:59 AM INTERN ARCHITECT XR CERVICAL SPINE W FLEX AND EXT [...] condition documented in this encounter Care Teams Underwriting Clerks Supervisor Relationship Specialty Start Date End Date Unassigned, Provider PCP - General 08/05/03 12/13/[address] [place] [address], [place] [address] documented as of this encounter
--- OUTSIDE RECORDS SUMMARY | 2022-11-06 15:25 | XMS_ITS | Encounter Summary ---
:1965 Author Organization [facility] Address [address], [place] [address] Care Team Providers Name Role Phone Jose Holden MD Primary Care Provider [phone] Reason for Visit Reason Comments QUESTIONS, GENERAL Encounter Details Date Type Department Care Team Description 01/25/2018 Telephone [facility] Pete Gonzalez MD QUESTIONS, GENERAL [facility]science [facility] [facility] Neuro[facility]/Ortho [address] [place], [place] [address] [address] [place] [address] [phone] Social History Tobacco Use Types Packs/Day Years [...] she should receive a call from the derrick barge operator in the next 1-3 weeks to discuss her surgery/date. Patient stated understanding and will call with any updates or changes. Chava Simon RN 01/25/2018, 11:04 AM WARE ANALYST Gi De La Vega - 01/25/2018 10:56 AM CST Patient calling to speak to RN. Regarding her MRI scan. WARE ANALYST documented in this encounter Plan of Treatment Upcoming Encounters Date Type Specialty Care Team Description 12/02/2022 Appointment Orthopedics Donald Medley MD [address] [facility] [address] [place] [phone] (Wo rk) 12/31/2022 Appointment Orthopedics Donald Medley MD [address] [facility] [address] [place] [phone] (Wo rk) documented as of this encounter Visit Diagnoses Not on filedocumented in this encounter Care Teams Assistant Womens Volleyball Coach Relationship Specialty Start Date End Date Jose Holden MD PCP - General Otolaryngology 12/14/17 [place] [address] documented as of this encounter
--- OUTSIDE RECORDS SUMMARY | 2022-11-06 15:25 | XMS_ITS | Encounter Summary ---
:1965 Author Organization [facility] Address [address] [place] [address] Care Team Providers Name Role Phone Elsewhere, Pcp Primary Care Provider Unavailable Encounter Details Date Type Department Care Team Description 09/06/2022 Clinical Communication Department of Cyrus Polk Orthopedic Surgery in [place], [place] 200 [facility] 200 [place] [address] [phone] Social History Tobacco Use Types Packs/Day Years [...] as of this encounter Care Teams Building Code Inspector Relationship Specialty Start Date End Date Elsewhere, Pcp PCP - General Family Medicine 12/25/21 documented as of this encounter
--- OUTSIDE RECORDS SUMMARY | 2022-11-06 15:25 | XMS_ITS | Encounter Summary ---
:1965 Author Organization [email or web address] Address [address] [place] [address] Care Team Providers Name Role Phone Jose Holden MD Primary Care Provider [phone] Reason for Visit Reason Comments Consult, New Patient vocal cord analysis Consult/Transfer Care (Routine) - Closed Specialty Diagnoses / Procedures Referred By Contact Refer red To Contact Diagnoses Pseudarthrosis after fusion or arthrodesis Screening procedure Pete Gonzalez MD [address] [place] [address] Referral ID Status Reason Start Date Expiration Date Visits Requ ested Visits Authorized [id number] Closed 11/29/2017 02/28/2019 1 1 Encounter Details Date Type Department Care Team Description 12/26/2017 Office Visit Specialty Center Jose Holden Cer vical vertebral 401 Otolaryngology MD Deyvi fusion (Primary Dx) [address] [place] [address] [place], [place] [phone] [facility] Social History Tobacco Use Types Packs/Day [...] (166 lb 12.8 oz) 12/26/2017 2:06 PM CARTON LINER Height - - Body Mass Index 32.58 11/29/2017 10:21 AM CARTON LINER documented in this encounter Progress Notes Jose [...] States that she was evaluated by a material handler 2nd shift and there were plans for a procedure [...] times per day. 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 [...] software and may contain unintended word substitutions. 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
--- OUTSIDE RECORDS SUMMARY | 2022-11-06 15:25 | XMS_ITS | Encounter Summary ---
:1965 Author Organization [facility] Address [address] [place] [address] Care Team Providers Name Role Phone Jose Holden MD Primary Care Provider Reason for Visit Therapies (Routine) - Closed Specialty Diagnoses / Procedures Referred By Contact Refer red To Contact Diagnoses Pseudarthrosis after fusion or arthrodesis Screening procedure Pete Gonzalez MD [address] [place] [address] Referral ID Status Reason Start Date Expiration Date Visits Requ ested Visits Authorized [id number] Closed 11/29/2017 01/28/2018 1 1 Encounter Details Date Type Department Care Team Description 12/26/2017 Office Visit Pete Orona MD [address] [place], [place] [address] Pharyngeal dysphagia [facility] Kaykay Wyman QUANTITATIVE CONSULTANT [address] [place], [place] [phone] (Primary Dx) Speech Therapy [address] [place] [address]. [id number] [phone] Social History Tobacco Use Types Packs/Day Years Used Date Smoking Tobacco: Every Day Cigarettes 0.5 Smokeless Tobacco: Never Alcohol Use Standard Drinks/Week Comments No 0 (1 standard drink = 0.6 oz pure alcoho l) Sex Assigned at Date Recorded Not on file documented as of this encounter Patient Instructions Patient InstructionsKaykay Wyman SLP - 12/26/2017 12:30 PM FOUNTAIN SERVER You had a swallow test today. I [...] sensation of food catching. Kaykay Monroy MA CCC/QUANTITATIVE CONSULTANT Speech-Language Pathologist M-F Office: [phone] TAIN SERVER documented in this encounter Progress Notes Kaykay Wyman, QUANTITATIVE CONSULTANT - 12/26/2017 12:30 PM CST SPEECH LANGUAGE PATHOLOGY MODIFIED BARIUM SWALLOW INITIAL EVALUATION ASSESSMENT Patient is referred for dysphagia evaluation as part of surgical consultation related to past [place]CDF [place] with consideration of revision ACDF surgery in [...] food sticking, especially on textures that are oven drier tender (meats, breads, etc). I would anticipate that [...] goals established as no further intervention from QUANTITATIVE CONSULTANT service is warranted at this time. VISIT [...] thin trials. On the Penetration- Aspiration Scale (Taylor, Osiris, Nataly, Liv, and Henry, 1996), this [...] Total Treatment Time: 45 minutes Kaykay Monroy CCC-QUANTITATIVE CONSULTANT 12/26/2017 documented in this encounter Plan of Treatment Upcoming Encounters Date Type Specialty Care Team Description 12/02/2022 Appointment Orthopedics Donald Medley MD [address] [place], [place] [phone] (Wo manuelito) 12/31/2022 Appointment Orthopedics Donald Medley MD [address] [place] [phone] (Babautnde billings) Scheduled Referrals Name Type Priority Associated Diagnoses Order S chedule Speech Therapy Referral Routine Pseudarthrosis after fusio n or Ordered: 11/29/2017 arthrodesis Screening procedure documented as of this encounter Visit Diagnoses Diagnosis Pharyngeal dysphagia - Primary Dysphagia, pharyngeal phase documented in this encounter Care Teams Prize Coordinator Relationship Specialty Start Date End Date Jose Holden MD PCP - General Otolaryngology 12/14/17 [facility] [place] [address] documented as of this encounter
--- OUTSIDE RECORDS SUMMARY | 2022-11-06 15:25 | XMS_ITS | Encounter Summary ---
:1965 Author Organization [facility] Address [address], [place] [address] Care Team Providers Name Role Phone Jose Holden MD Primary Care Provider [phone] Encounter Details Date Type Department Care Team Description 02/07/2018 Telephone [facility] Neuroscience Chava Simon RN English Neurosurgery/ Ortho Spine [address] [place] [address] [phone] Social History Tobacco Use Types Packs/Day Years [...] her pre-op is scheduled for 02/13/[address] [facility]. Clinic fax # was given. Patient will have clearance note faxed to clinic. Will post pone message to after the to check and see if pre-op has been received yet. Michael Cruz - 02/08/2018 1:37 PM CDT [facility] Michael Cruz 02/08/2018, 1:37 PM Michael Cruz - 02/07/2018 11:27 AM CDT [facility] Michael Cruz 02/07/2018, 11:27 AM Chava Simon RN - [...] 12/02/2022 Appointment Orthopedics Donald Medley MD [address] [facility] 200 [place], [place] [phone] (Wo rk) 12/31/2022 Appointment OrthopedicDonald Thomas MD [address] [facility] 200 [place], [place] [phone] (Wo rk) documented as of this encounter Visit Diagnoses Not on filedocumented in this encounter Care Teams Kennel Helper Relationship Specialty Start Date End Date Jose Holden MD PCP - General Otolaryngology 12/14/17 [facility] [facility] [address] documented as of this encounter
--- OUTSIDE RECORDS SUMMARY | 2022-11-06 15:25 | XMS_ITS | Encounter Summary ---
:1965 Author Organization [facility] Address [address], [place] [address] Care Team Providers Name Role Phone Jose Holden MD Primary Care Provider Reason for Visit Reason Comments QUESTIONS, GENERAL Encounter Details Date Type Department Care Team Description 02/03/2018 Telephone [facility] Pete Gonzalez MD QUESTIONS, GENERAL [facility] [facility] Neuro[facility]/Ortho [place], [place] [address] [address] [place] [address] [phone] Social History Tobacco Use Types Packs/Day Years [...] PA. Chava Simon RN 02/03/2018, 12:01 PM INSTRUCTOR Gi De La Vega - 02/03/2018 11:55 AM CST Patient calling to speak to Jamir. Would like to know about her surgery. Occupational Medicine Specialist did let patient know that Ana Rosa surgical scheduler is out of the office. She did request to speak to Jamir. Please call her at listed number. Thanks INSTRUCTOR documented in this encounter Plan of Treatment Upcoming Encounters Date Type Specialty Care Team Description 12/02/2022 Appointment Orthopedics Donald Medley MD [address] [facility] [address] [place] [phone] (Wo rk) 12/31/2022 Appointment Orthopedics Donald Medley MD [address] [facility] [address] [place] [phone] (Wo rk) documented as of this encounter Visit Diagnoses Not on filedocumented in this encounter Care Teams Soldering Machine Feeder Relationship Specialty Start Date End Date Jose Holden MD PCP - General Otolaryngology 12/14/17 [place] [place] [id number] documented as of this encounter
--- OUTSIDE RECORDS SUMMARY | 2022-11-06 15:25 | XMS_ITS | Encounter Summary ---
:1965 Author Organization Count includes the [facility] Address [address] [place] [address] Care Team Providers Name Role Phone Jose Holden MD Primary Care Provider [phone] Reason for Referral (Routine) - Incomplete Specialty [...] (*), IMAGE GUIDANCE ADD ON SPINE (*) [place] [address] Referral ID Status Reason Start Date Expiration Date Visits V isits Requested Authorized [id number] Incomplete 01/25/2018 04/26/2019 1 1 ICE GIRL Encounter Details Date Type Department Care Team Description 01/25/2018 [facility] Cervical s pondylosis with radiculopathy (Primary Dx); Surgery [facility] 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
--- OUTSIDE RECORDS SUMMARY | 2022-11-06 15:25 | XMS_ITS | Encounter Summary ---
:1965 Author Organization [facility] Address [address] [place] [address] Care Team Providers Name Role Phone Unassigned, Provider Primary Care Provider Unavailable Encounter Details Date Type Department Care Team Description 10/28/2005 [facility] Curtis Antoine Op Report-Archive [facility] [place] [address] [place] [phone] [place], [place] [phone] Social History Tobacco Use Types Packs/Day Years Used Date Smoking Tobacco: Never Assessed Sex Assigned at Date Recorded Not on file documented as of this encounter Plan of Treatment Upcoming Encounters Date Type Specialty Care Team Description 12/02/2022 Appointment Orthopedics Donald Medley MD [address] [phone] (Wo rk) 12/31/2022 Appointment Orthopedics Donald Medley MD [address] [phone] (Wo rk) documented as of this encounter Visit Diagnoses Not on filedocumented in this encounter Care Teams Cto Relationship Specialty Start Date End Date Unassigned, Provider PCP - General 08/05/03 12/13/[address] [place] [address] documented as of this encounter
--- OUTSIDE RECORDS SUMMARY | 2022-11-06 15:25 | XMS_ITS | Encounter Summary ---
:1965 Author Organization [facility] Address [address] [place] [address] Care Team Providers Name Role Phone Jose Holden MD Primary Care Provider [phone] Encounter Details Date Type Department Care Team Description 02/07/2018 Prep for Surgery [facility] Sneha Maher, [facility] Sirisha L, APR N, OPERATING ROOM ORDERLY Neurosurgery/Ortho [address] [place] [address] [place] [address] [place] [address] [phone] Social History Tobacco Use Types Packs/Day Years [...] Description 12/02/2022 [place] [address] [place] [phone] (Wo rk) 12/31/2022 Appointment Orthopedics Donald Medley MD [facility] [facility] [address] [place], [place] [phone] (Wo rk) documented as of this encounter Visit Diagnoses Not on filedocumented in this encounter Care Teams Acid Tank Liner Relationship Specialty Start Date End Date Jose Holden MD PCP - General Otolaryngology 12/14/17 [place] [address] documented as of this encounter
--- OUTSIDE RECORDS SUMMARY | 2022-11-06 15:26 | XMS_ITS | Encounter Summary ---
:1965 Author Organization [facility] Address [address] [place] [address] Care Team Providers Name Role Phone Elsewhere, Pcp Primary Care Provider Unavailable Encounter Details Date Type Department Care Team Description 06/15/2022 Ancillary Procedure Department of Demarcus Ernst, Radiology in [place], [place] [address] [place] [phone] (Wo rk) Social History Tobacco Use Types [...] you attend hinduism or Patient refused 2021 cheondoism services? Do [...] Modality Spine, Neuroradiology RST LOS, Neuroradiology [facility], N/A Computed Tomography Neuroradiology [...] documented as of this encounter Care Teams Plug Stitcher Relationship Specialty Start Date End Date Elsewhere, Pcp PCP - General Family Medicine 12/25/21 documented as of this encounter
--- OUTSIDE RECORDS SUMMARY | 2022-11-06 15:26 | XMS_ITS | Encounter Summary ---
:1965 Author Organization [facility] Address [address] [place] [address] Care Team Providers Name Role Phone Elsewhere, Pcp Primary Care Provider Unavailable Reason for Visit Reason Comments Pre-visit Intake Encounter Details Date Type Department Care Team Description 06/25/2022 Clinical Communication Visit Review in Pr e-visit Intake [place], [place] [address] [place] [address] Social History Tobacco Use Types [...] you attend muslim or Patient refused 2021 advent services? Do [...] documented as of this encounter Care Teams Can Stacker Relationship Specialty Start Date End Date Elsewhere, Pcp PCP - General Family Medicine 12/25/21 documented as of this encounter
--- OUTSIDE RECORDS SUMMARY | 2022-11-06 15:26 | XMS_ITS | Encounter Summary ---
:1965 Author Organization [facility] Address [address] [place] [address] Care Team Providers Name Role Phone Elsewhere, Pcp Primary Care Provider Unavailable Encounter Details Date Type Department Care Team Description 06/17/2022 Anesthesia Event Department of Radiology, Shantell Verma APRN, MESSAGE CLERK, DNAP [address] [place] [phone] [facility] [address] [place] [phone] [place], [place] [address] [place] [address] Anesthesia Record Procedure Summary Procedure Name Responsible Anesthesia Start Anesthesia Stop Time Anesthesiologist Time MR BRAIN WITHOUT IV Sapphire Verma APRN, MESSAGE CLERK, 06/17/22 1446 1702 CONTRAST DNAP Events Date [...] over 3 days 1 patch (TRANSDERM S PIN OR CLIP FASTENER) 1 patch Lactated Ringers Free Drip 850 [...] you attend yazdanism or Patient refused 2021 jainism services? Do [...] OR Notes Anesthesia Postprocedure Evaluation - Maritza Firend, LEAD VULCANIZING OPERATOR, MESSAGE CLERK, DNAP - 06/17/2022 5:09 PM CDT Patient: Angie Mosquera Procedure Summary Date: 06/17/22 Room / Location: Department of Radiology, [facility], in [place], [place] Anesthesia Start: 1446 Anesthesia Stop: 170 [...] ETT location: oral VL device: glide scope Danforth scope blade size: 3 Adult tube size: [...] equina r/o compression Location: Department of Radiology, [facility], in [place], [place] Pertinent components of the patient's history [...] Vertebral Artery (HCC) (+) Dissection Vertebral Artery ([facility]) (+) Transient Ischemic Attack MSK/RHEUM (+) [...] with patient /legal guardian or through an kaiawhina kohanga reo. Risks/Benefits/Alternatives of Blood transfusion discussed with patient [...] ETT location: oral VL device: glide scope Danforth scope blade size: 3 Adult tube size: [...] ?? Airway event: no complications Sapphire Luci LEAD VULCANIZING OPERATOR, MESSAGE CLERK, DNAP ANESTHESIA ORDERABLES documented in this encounter [...] documented as of this encounter Care Teams Brewer Helper Relationship Specialty Start Date End Date Elsewhere, Pcp PCP - General Family Medicine 12/25/21 documented as of this encounter
--- OUTSIDE RECORDS SUMMARY | 2022-11-06 15:26 | XMS_ITS | Encounter Summary ---
:1965 Author Organization [facility] Address [address] [place] [address] Care Team Providers Name Role Phone Elsewhere, Pcp Primary Care Provider Unavailable Reason for Referral Physical Therapy (Routine) - Authorized Specialty Diagnoses / Procedures Referred By Contact Refer red To Contact Diagnoses Aftercare Total Shoulder Arthroplasty Flavia Broderick M.D. [facility] Procedures PT or OT eval and treat (first available) Referral ID Status Reason Start Date Expiration Date Visits V isits Requested Authorized [id number] Authorized 06/23/2022 06/23/2023 99 99 utpatient (Routine) - Closed Specialty Diagnoses / Procedures Referred By Contact Refer red To Contact Diagnoses Aftercare Total Shoulder Arthroplasty Flavia Broderick M.D. [facility] Procedures DX Shoulder Left 2+ Views Referral ID Status Reason Start Date Expiration Date Visits Requ ested Visits Authorized [id number] Closed 06/23/2022 06/23/2023 1 1 Reason for Visit Reason Comments Post-op Encounter Details Date Type Department Care Team Description 06/23/2022 Clinical Communication Department of Cyrus Polk st-op Orthopedic Surgery in [place], [place] 200 [facility] 200 [place] [address] [phone] Social History Tobacco Use Types Packs/Day Years [...] you attend latter-day or Patient refused 2021 uatsdin services? Do [...] documented as of this encounter Care Teams Texture Artist Relationship Specialty Start Date End Date Elsewhere, Pcp PCP - General Family Medicine 12/25/21 documented as of this encounter
--- OUTSIDE RECORDS SUMMARY | 2022-11-06 15:26 | XMS_ITS | Encounter Summary ---
:1965 Author Organization [facility] Address [address] [place] [address] Care Team Providers Name Role Phone Elsewhere, Pcp Primary Care Provider Unavailable Reason for Visit Appointment Request (Routine) - Closed Specialty Diagnoses / Procedures Referred By Contact Refer red To Contact Orthopedic Surgery Diagnoses Aftercare Total Shoulder Arthroplasty Referral ID Status Reason Start Date Expiration Date Visits Requ ested Visits Authorized [id number] Closed 06/23/2022 06/23/2023 1 1 Encounter Details Date Type Department Care Team Description 06/29/2022 Office Visit Department of Cyrus Polk Orthopedic Surgery in [place] (Primary Dx) [place], [place] [address] [place] [address] [address] [place] [address] [phone] Social History Tobacco Use Types Packs/Day Years [...] you attend temple or Patient refused 2021 baptist services? Do [...] to follow up through the [facility], Department of Orthopedic Surgery Total Joint Registry. [...] documented as of this encounter Care Teams Primer Waterproofing Machine Operator Relationship Specialty Start Date End Date Elsewhere, Pcp PCP - General Family Medicine 12/25/21 documented as of this encounter
--- OUTSIDE RECORDS SUMMARY | 2022-11-06 15:26 | XMS_ITS | Encounter Summary ---
:1965 Author Organization [facility] Address [address] [place] [address] Care Team Providers Name Role Phone Elsewhere, Pcp Primary Care Provider Unavailable Reason for Visit Reason Comments Patient needs to r/s Jul 02 appointments Encounter Details Date Type Department Care Team Description 06/28/2022 Clinical Communication RST ANDREW Pollard, Patient needs to r/s [address] [facility] [place] Jul 02 appointments [place], [place] [address] [place] [address] [place] [address] Social History Tobacco Use Types Packs/Day Years [...] you attend caodaism or Patient refused 2021 baptist services? Do [...] call patient re: this . Ronny, Maritza [phone] documented in this encounter Plan of Treatment Not on filedocumented as of this encounter Visit Diagnoses Not on filedocumented in this encounter Additional Health Concerns Assessment Noted Time PHQ-9 Depression Total Score: 16 02/11/2021 12:00 AM C DT documented as of this encounter Care Teams Aging Room Hand Relationship Specialty Start Date End Date Elsewhere, Pcp PCP - General Family Medicine 12/25/21 documented as of this encounter
--- OUTSIDE RECORDS SUMMARY | 2022-11-06 15:26 | XMS_ITS | Encounter Summary ---
:1965 Author Organization [facility] Address [address] [place] [address] Care Team Providers Name Role Phone Elsewhere, Pcp Primary Care Provider Unavailable Reason for Visit Reason Onset Date Comments Left Without Being Seen 07/22/2022 Physical Therapy (Routine) - Authorized Specialty Diagnoses / Procedures Referred By Contact Refer red To Contact Diagnoses Aftercare Total Shoulder Arthroplasty Flavia Broderick M.D. [facility] Procedures PT or OT eval and treat (first available) Referral ID Status Reason Start Date Expiration Date Visits V isits Requested Authorized [id number] Authorized 06/23/2022 06/23/2023 99 99 Encounter Details Date Type Department Care Team Description 06/29/2022 Comprehensive Visit Department of Physical Juaquin Broderick M.D. Procedure And Treatment Not Carried Out Due To Patient Leaving Prior To Being Seen By Health Care Provider (Primary Dx); Medicine and Jessie Faye M.S., O.T. [address] [place] [phone] Aftercare Total Shoulder Arthroplasty Rehabilitation in [place], [place] [address] [place] [address] Social History Tobacco Use Types Packs/Day Years [...] you attend christianity or Patient refused 2021 congregation services? Do you belong to any clubs or No 05/17/2022 organizations such as christianity groups, unions, fraXD Nutrition or athletic groups, or school groups? How [...] X-ray and Dr. Polk. Patient arrived at [place] [address] des and was rescheduled. documented in this [...] documented as of this encounter Care Teams Hall Cleaner Relationship Specialty Start Date End Date Elsewhere, Pcp PCP - General Family Medicine 12/25/21 documented as of this encounter
--- OUTSIDE RECORDS SUMMARY | 2022-11-06 15:26 | XMS_ITS | Encounter Summary ---
:1965 Author Organization [facility] Address [address] [place] [address] Care Team Providers Name Role Phone Elsewhere, [...] Embolism Right Vertebral Artery (HCC) MBrittonDBritton [address] [place] [place], [place] [address] Referral ID Status Reason Start Date Expiration Date Visits V isits Requested Authorized [id number] Authorized 06/17/2022 06/17/2023 1 1 Physical Therapy (Routine) - Authorized Specialty Diagnoses / Procedures Referred By Contact Refer red To Contact Cumulative Effects Analyst Diagnoses Weakness General Pain Back Ataxia Repeated Falls Debility Primary Osteoarthritis Shoulder Left 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 Stroke Cerebrovascular Accident Personal History Fusion Cervical Spine Status Post Maira Haynes, Fibromyalgia Chronic Pain Syndrome Cerebral 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 Scooter Tony APRN, C.N.P. [address] [place] [id number] Weakness General (Primary Dx); 06/18/2022 [facility] [address] [place] [phone] Incontinence Urinary; [facility], Saul Pollard M.D. [address] [place] [phone] Pain Back; Domitilla Ataxia; Building, Third Repeated Fal ls; Floor Debility; [address] [facility] Primary Osteoarthritis Shoul marquis Left; [place], [place] Ataxia From [facility] Cerebrovascular Accident; [phone] Stroke Cerebrovascular Accid ent Personal History; [phone] Fusion Cervical Spine Status Post; Fibromyalgia; Chronic [...] attend latter day or Patient refused 2021 buddhism services? Do [...] AM CDT DISCHARGE SUMMARY BRIEF OVERVIEW Hospital: [facility] Discharge Provider: Saul Pollard M.D. Primary Team: [facility] Medicine ([facility]) Primary Care Providers: Elsewhere, Pcp (General) [...] FOLLOW UP Scheduled Appointments 06/21/2022 11:00 AM [facility] PHARMACIST [address] [place] [address] Pharmacy For appointment details refer to your Patient Appointment Guide. TEST RESULTS PENDING AT DISCHARGE Pending Labs Order Current Status Basic Metabolic Panel In process DETAILS OF HOSPITAL STAY REASON FOR ADMISSION Pain Back Weakness General Incontinence Urinary Ataxia Repeated Falls HOSPITAL COURSE Ms. Mosquera is hospitalized on [facility] Medicine ([facility]) for evaluation and management of Weakness [...] PM CDT DISCHARGE SUMMARY BRIEF OVERVIEW Hospital: [facility] Discharge Provider: Saul Plolard M.D. Primary Team: [facility] Medicine 4 ([facility]) Primary Care Providers: Elsewhere, Pcp (General) [...] HOSPITAL COURSE Ms. Mosquera is hospitalized on [facility] Medicine 4 ([facility]) for evaluation and management of Weakness [...] AM CDT You were discharged from the [facility] Medicine 4 ([facility]) Service. Please identify this service name if you call with questions after hospitalization. Discharge Instr - ActivityAnthony Shepard, P.Jolanta., D.P.T., C.S.C.S. - 06/16/2022 1:22 PM CDT [...] information provided on 06/16/2022 Contact information: [facility], [address] [place], Tessie Arora - 06/17/2022 10:50 AM CDT Take a copy of this after visit summary to your appointment(s). REID NATH June 28, 2022 - Tuesday --10:00 AM - Hospital Follow-Up with Dr. Blackwell, primary care provider, at [facility] [place] RECOMMENDATIONS: * * [facility] You may have outpatient appointments at [facility] that changed during your hospitalization. Refer to your [facility] Patient Visit Guide (PVG) for the most current schedule of appointments and detailed instructions of tests/procedures. Call [phone], if you did not receive an PVG or need to CANCEL any [facility] appointment(s). AttachmentsThe following attachments cannot be sent through Care Everywhere. Pregabalin (By mouth) (Burundian)Furosemide (By mouth) (Burundian)documented in this encounter Medications at Time of [...] THC multivit-min/iron/folic/ Take 1 tablet by 0 [id number] (HAIR, SKIN AND mouth daily. NAILS ADVANCED [...] mcg tablet, under the tongue sublingual daily. doxycycline monohydrate TAKE 1 TABLET BY 28 tablet 0 202102/26/2023 (ADOXA) 100 mg tablet MOUTH TWO TIMES A DAY FOR 14 DAYS ipratropium-albuteroL Inhale 3 mL by 0 01/16/2021 [...] of this encounter Progress Notes Conchita Campos C.O.TPhoenix., O.T.A. - 06/18/2022 10:55 AM CDT Occupational [...] Discussed patient's care with PT Outcome Measures [facility] Inpatient Short Form: Putting on and [...] Standardized Score: 44.27 Interpretation: Clinicians answer the [facility] Inpatient Short Form based on [...] Assistance with meal preparation, Assistance with financial aid officer, Assistance with shopping, Assistance with housekeeping, Assistance [...] Treatment Time (min): 17 min Alisha Brown, O.T.A. Kiran Melton M.D. - 06/17/2022 8:00 PM CDT T Medicine 4 ([facility]) PROGRESS NOTE SUBJECTIVE No acute events [...] / PLAN Ms. Mosquera is hospitalized on [facility] 4 ([facility]) for evaluation and management of Weakness [...] Right Lives With: Alone Receives Help From: housekeeping room attendant, Family, Friend(s) (Son lives in apt next to her.) ADL Assistance: Required assistance ADL Assistance Comments: Gets help from SUPPLIER DEVELOPMENT MANAGER for her bath/shower 3x/week, and for her meals, RN once every 2 weeks. IADL/Homemaking Assistance: Required assistance IADL/Homemaking Assistance Comments: Gets help for housecleaning Driving: Does not drive Driving Comments: Friend assists Occupational Role: On disability Occupational Role Comments: Previously worked at a [employer] Prior Mobility/Functional Transfers Level of Ciales: Needs assistance Gait Devices/Wheelchair Used Comments: No [...] Additional Staff Present During Session: RN and coroner transport technician Outcome Measures [facility] Inpatient Short Form: [facility] Basic Mobility (V.2) How much [...] 3-5 steps with a railing?: A Lot [facility] Basic Mobility (V.2) Raw Score: 21 [facility] Basic Mobility (V.2) Standardized Score: 45.55 Interpretation: Clinicians answer the [facility] Inpatient Short Form based on [...] (min): 26 min Radha Miller P.T. Marlene Wu, PharmBrittonD., R.Ph. - 06/16/2022 1:20 PM CDT Pharmacist [...] patient wasunsure of a few. Consider outpatient MTM pharmacy review Changes to medications anticipated at discharge:pending hospital course Marlene Wu Pharm.D., R.Ph. [phone] Marlene Wu Pharm.D., R.Ph. - 06/16/2022 1:14 PM CDT Images from the original note were not included. Admission Medication History Note Medication list source: Patient + [facility] refill history (patient gets her [...] Status: Pharmacy Complete Set By: Marlene Wu, PharmAlejandrina, R.Ph. at 06/16/2022 12:56 PM Status Comment [...] Take 150 mg by mouth every morning. nfmfpetvqt-smbeegwuyzsqk-ezhe (ESGIC) 50-325-40 mg per tablet Past Month [...] 1 spray as needed. 5 mg THC multivit-min/iron/folic/qxe834 (HAIR, SKIN AND NAILS ADVANCED ORAL) Past [...] Cornelius). Per Ms. Mosquera, she lost her conveyor monitor months ago so has not been able to charge the device. Device was interrogated, however, it was unable to connect to the clinical data programmer, likely due to the battery being depleted per patient report. technical support consultant Mandy in room during interrogation and aware that device is off. Carley Mendez M.D. PGY-3, Anesthesiology and Perioperative Medicine documented in this encounter H&P Notes Renetta Michael M.D., M.S. - 06/15/2022 11:41 PM CDT Images from the original note were not included. T Medicine 4 ([facility]) - ADMISSION NOTE Hospital Day 0 [...] but left AMA. She presented to the [place] ED 06/15. In the ED, she was [...] Urinalysis Case will be staffed with supervising client service consultant within 24 hours. [address] [facility] Medicine 4 ([facility]) service pager at [phone] with questions or concerns. Renetta Michael M.D., M.S. PGY-3 [phone] Department of Internal Medicine Kiran Melton M.D. - 06/15/2022 12:[address] [facility] Medicine 4 ([facility]) Admission Note SUBJECTIVE CHIEF COMPLAINT Generalized [...] overflow incontinence. She was seen in the [place] ER a few days ago where they obtained a CT head without evidence for new infarct. She left against medical advice and came to [place] for re-evaluation. Upon arrival to the ED, [...] Take 150 mg by mouth every morning. aqqbqsqoas-dwxrngjpmpmoq-jncm (ESGIC) 50-325-40 mg per tablet, Take 1 [...] 1 spray as needed. 5 mg THC multivit-min/iron/folic/ruf647 (HAIR, SKIN AND NAILS ADVANCED ORAL), Take [...] / PLAN Ms. Mosquera is hospitalized on [place] [address] ([facility]) for evaluation and management of Weakness [...] or life-threatening deterioration of the following conditions: REGULATORY ASSOCIATE failure or compromise Critical care was [...] Grab Bars Support from family [facility]-Health [facility] OBJECTIVE Secretary Specialist met with patient to discuss final discharge plans. Patient is agreeable to restart her home health nursing and HAT LINER along with PT. Patient will have her friend transport her home today. ASSESSMENT / PLAN Assessment The patient appear to have insight into the patient's needs at this time and are planning appropriately for discharge needs. They report agreement with the below plan with no further questions at this time. Plan [facility] Georgette RN: [phone] Home health requesting an AVS discharge summary [...] directive. PRIMARY SERVICE: - Please provide a non-[facility] home health order for resumption of previous [...] if needs arise. Cris Landin R.N. 06/18/2022 Ihrke, Claire Brumfield O.T., [facility] - 06/17/2022 9:53 AM CDT Occupational Therapy Acute Hospital Inpatient Evaluation/Treatment SUBJECTIVE Patient's Name: Angie Ashley Mosquera Referring/Attending Provider: Saul Pollard M.D. 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 IADL/Homemaking Assistance: Required assistance IADL/Homemaking Assistance Comments: Gets help for housecleaning Driving: Does not drive Driving Comments: Friend assists Occupational Role: On disability Occupational Role Comments: Previously worked at a [employer] Prior Mobility/Functional Transfers Level of Ciales: Needs assistance Previous Transfer/Mobility Assistance Comments: Patient [...] quite lethargic, yet impulsive required assistance to [facility] gown and shoulder immobilizer to maximize safety [...] and patient's status was discussed Outcome Measures -[facility] Inpatient Short Form: Putting on and taking [...] Standardized Score: 32.03 Interpretation: Clinicians answer the -[facility] Inpatient Short Form based [...] Assistance with meal preparation, Assistance with financial aid officer, Assistance with shopping, Assistance with housekeeping, Assistance [...] Planning Assessment SUBJECTIVE Assessment Information Referral Source: mathematical scientist Referral Reason: Discharge Planning Primary Language: Burundian Sewer System Supervisor Services Used: No Person(s) present during [...] Pleasant, Calm Communication: Talks, Understands speaking, Understands Burundian Shopping: Needs assistance Transportation: Support from family Medication Management: Independent Housekeeping: Dependent Meal Prep: Needs assistance Managing Finances: Needs assistance Assistive Devices: Cane, Tub/shower chair/bench Services/Resources: Home health Agency Name: Home health reconnect Services Provided: detention twice monthly, HAT LINER 3 times a week Baseline Services/Resources Primary care clinic and provider: ELSEWHERE, PCP Services/Resources: Home health Additional Resources: none Anticipated Needs Functional Status: Bathing, Dressing, Grooming/hygeine, Meal preparation, Medication set-up/administration, Housekeeping, Shopping, Transportation use (drive car, use taxi/bus) Assistive Devices: Tub/shower chair/bench, Grab bars - toilet, Grab bars - wall Services/Resources: Home health Agency Name: Home health reconnect Services Provided: detention twice monthly, HAT LINER 3 times a week Anticipated Modifications to the Patient's Home: Grab Bars Transportation Needs: Support from family Does the patient need discharge transport arranged?: No Phone Number for Ride/Caregiver: son or daughter Anticipated Discharge Destination: Home-Health Care [facility] ASSESSMENT / PLAN Assessment: The mathematical scientist met with Angie Mosquera to discuss her current hospitalization and home goingneeds. The patient was unaccompanied. The patient was a reliable historian. The role of mathematical scientist was reviewed. The patient reviewed her prior level of care and support system. The patient receives support from her daughter, son, and home care staff . The patient described her living environment as a apartment with elevator access with level entry. Housekeeping, grocery shopping, meal prep, and other household responsibilities have previously been completed by patient and patient's son. mathematical scientist discussed the patient's potential needs at [facility] based on their home setting, previous [...] ADL's. She currently has home health through [facility] for detention twice monthly and HAT LINER 3 times a week for 1 1/2-2 [...] chart and meeting with the patient, the mathematical scientist deemed the LACE+/readmission questions were appropriate. The [...] readmission could not have been prevented. The mathematical scientist will share this information with the care team. The patient reports understanding that she will dismiss from the hospital when medically stable. Pending hospital course and medical readiness, no barriers to dismissal have been identified at this time. Plan: The patient agrees with the following plan. Patient's anticipated discharge disposition is: Home with Home Healthcare Reconnected: [facility] Transportation upon dismissal will be provided by family--son or daughter . mathematical scientist recommended a shower seat, grab bars, home delivery of groceries, and reaching out to family, friends, and neighbors for assistance. mathematical scientist provided information regarding the dismissal process and the Advance Health Care Planning: Making Your Wishes Known [id number] booklet along with education on the benefits of completing an advance directive and resources that may assist them in this process. The patient sharedno further questions or concerns regarding advance directives. The patient appears to have an understanding of how to complete an advance directive and reported awareness of resources to assist them. mathematical scientist placed or requested the following hospital-based consult orders and/or referrals: PT/OT. mathematical scientist will continue to assess for homegoing needs with the interdisciplinary team. mathematical scientist encouraged the patient to reach out with any questions/concerns. Patient to discharge with home health care. [facility] Georgette RN: [phone] Home health requesting an AVS discharge summary [...] directive. PRIMARY SERVICE: - Please provide a non-[facility] home health order for resumption of previous [...] by: Cris Landin R.N. 06/16/2022 Nikki Cook APRN, C.N.P., M.S. - 06/16/2022 11:01 AM CDTAssociated Order(s): [...] Prescriptions are provided by pain management through [facility] and her PCP Dr. [...] lumbosacral radicular pain, last reportedly revised at [facility] in 2019. The initial implant date is unknown. She had turned the device off for one her surgeries, then misplaced the clinical data programmer. She has received a new clinical data programmer, but has not gotten to using the new device. It is at her home. She thinks she has not used the SCS for several months. CURRENT MEDICATIONS: Acetaminophen 1 g four times a day Glsqtqqrvojqe-haoggyba-irkfhefoa-Lipoderm cream twice a day Diclofenac 1% gel [...] mg by mouth every morning. Past Week gtjlnjymos-qxbwbpjmndzix-yzok (ESGIC) 50-325-40 mg per tablet Take 1 [...] as needed. 5 mg THC Past Week multivit-min/iron/folic/aiq191 (HAIR, SKIN AND NAILS ADVANCED ORAL) Take [...] Daily Given, 1,000 mg at 06/16 1345 koowfxfnnzelf-dfdebrjn-ucpxesfdd in Lipoderm 2%-0.5%-2% cream 1 g 1 [...] PRN Given, 100 mg at 06/16 921 clsnxhfvpb-cxdgmvgqcknng-wmzb 50-325-40 mg per tablet 1 tablet (ESGIC) [...] Pulse Rate: [58-82] 82 Vitals: 06/15/22 1659 06/15/22184906/15/22 18506/15/222045 Pain Score: 10 - Worst possible pain 8 8 5 - Moderate pain 06/15/22 2128 06/15/22 2208 06/16/22 0030 06/16/22 0533 Pain Score: 8 [...] Steven, M.S.N., R.N.) Pain Location: Shoulder (06/16/22 05 : Tiffanie Mills RRebekah.) Pain Orientation: Left (06/16/22 0533 : Tiffanie Mills RRebekah.) Response to Interventions: Asleep (06/16/22 0357 : Tiffanie Mills R.N.) Resp Rate: 18 (06/16/22 0921 : Gini Newberry R.N.) Respiratory Depth/Rhythm: Regular (06/15/228 : Asia Cortez R.N., [facility]) PAIN PHYSICAL EXAM GENERAL: Pleasant, 57 y.o. [...] longitudinally with an outpatient pain provider at [facility]. Though she is on several REGULATORY ASSOCIATE acting medications that could increase the risk [...] organic cause for symptoms - work with [employer] to get her SCS therapy active in the outpatient setting Discussed with [facility] Dr. Kaushik Gustafson. Thank you for allowing the Inpatient Pain Service to be a part of Angie Mosquera's care. The [facility] Inpatient Pain Service will sign off. Please page [phone] with questions. Anthony Shepard, Cammy, D.P.T., C.S.C.S. 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 IADL/Homemaking Assistance: Required assistance IADL/Homemaking Assistance Comments: Gets help for housecleaning Driving: Does not drive Driving Comments: Friend assists Occupational Role: On disability Occupational Role Comments: Previously worked at a [employer] and [employer] Prior Mobility/Functional Transfers Level of Ciales: Needs assistance Gait Devices/Wheelchair Used Comments: No [...] surgicalmask, eye protection, and gloves Outcome Measures -[facility] Inpatient Short Form: -[facility] Basic Mobility (V.2) How [...] 3-5 steps with a railing?: A Lot AM-[facility] Basic Mobility (V.2) Raw Score: 20 AM-[facility] Basic Mobility (V.2) Standardized Score: 43.99 Interpretation: Clinicians answer the -[facility] Inpatient Short Form based [...] independent with ADLs but does have a SUPPLIER DEVELOPMENT MANAGER 3 times per week to assist [...] Time (min): 27 min Anthony Shepard P.T., Juice.P.TBritton, C.S.C.S. Leonides Kumar M.D. - 06/15/2022 6:05 [...] She now presented to the ED at [facility] for a second opinion. Review of Systems: [...] (WELLBUTRIN XL) 150 mg, oral, Every morning xyipfomtei-ylmjpeelryano-yjid (ESGIC) 50-325-40 mg per tablet 1 tablet, [...] 1 spray as needed. 5 mg THC multivit-min/iron/folic/pir642 (HAIR, SKIN AND NAILS ADVANCED ORAL) 1 [...] PM CDT Care of patient transferred to [place] by Scooter Tony. Disposition pending MRI with [...] have chronic pain and she lost the conveyor monitor for her [employer]onic Intellis SCS device several months ago. An MRI [...] relieve her symptoms she was seen in [place] ER few days ago and had no [...] over the past weeks was recently evaluated [facility] which she had a CT [...] plan ED Course as of 06/16/22 0848 e Jun 15, 2022 9606 Given patient's history exam I do have concern for possible underlying cauda equina given her recent falls increased back pain some lower leg weakness this could be secondary to other injury thus difficult to assess and urinary incontinence. Will page Neurology have them evaluate further. 1517 Patient continues to be a poor historian [...] medicine. 2025 Patient will go back to [place] awaiting a MRI and then disposition. 2025 [...] is a the provider I spoke with.Pager #[phone] Final Diagnoses: as of 06/16/22 0848 Weakness [...] a recent fall. Pt was seen in [place] yesterday. Ct scan performed. Pt is here for a second opinion. Elaine Winn R.N. 06/15/22 1108 documented in this encounter Miscellaneous Notes Hospital Course - Maira Haynes M.D. - 06/16/2022 7:30 AM CDT Ms. Mosquera is hospitalized on [place] [address] ([facility]) for evaluation and management of Weakness [...] Due To Embolism Right Vertebral Artery (HCC) [facility] Outpatient Referral Routine Weakness Gen eral [...] CBC without Differential (06/18/2022 7:50 AM CDT) [facility] Method Time Signature Hemoglobin 11.2 (L) 11.6 [...] Number [facility] - [address] [place], [place] [address] [facility] [place] [address] [facility] [address] Basic Metabolic [...] 06/18/2022 DTL Black/ mL/min/BSA 8:56 AM CDT Chadian Comment: ----ADDITIONAL INFORMATION---- Estimated GFR calculated using [...] [facility] - [address] [place], [place] [address] [facility] [place] [address] [facility] [address] MR Thoracic [...] 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 The telida intraocular lenses are absent . 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 The telida intraocular lenses are absent . 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 The telida intraocular lenses are absent . 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 The telida intraocular lenses are absent . 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 The telida intraocular lenses are absent . 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 The telida intraocular lenses are absent . Mild mucosal [...] CBC without Differential (06/17/2022 8:00 AM CDT) [facility] [place] Method Time Signature Hemoglobin 10.5 (L) 11.6 [...] e Number [facility] - [address] [place], [place] [address] [facility] [place] [address] Laboratories-[facility] 200 [facility] Basic Metabolic Panel (06/17/2022 8:00 AM [...] 06/17/2022 DTL Black/ mL/min/BSA 9:34 AM CDT Chadian Comment: ----ADDITIONAL INFORMATION---- Estimated GFR calculated using [...] M.D. LAB BLOOD ADD-ON Performing Organization Address City/[facility]/ZIP [facility] Phon e Number [facility] - [address] [place], [place] [address] [facility] [place] [address] [facility] 200 [facility] (ABNORMAL) Dipstick, Urine (06/16/2022 9:32 AM [...] M.D. LAB URINE ORDERABLES Performing Organization Address [facility] Phon e Number [facility] - [address] [place] [address] [facility] [place] [address] [address] Osmolality, Urine (06/16/2022 9:32 AM CDT) P athologist Signature Osmolality, U 745 150 - 1150 06/16/2022 DTL mOsm/kg 11:17 AM CDT Specimen Anatomical Collection Method Collection Time Receive d Time (Source) Location / / Volume Laterality Urine 06/16/2022 9:32 AM 2 CDT 10:39 AM CDT Maira Haynes M.D. LAB URINE ORDERABLES Performing Organization Address City/[facility]/ZIP Code Phon e Number [facility] - [address] pH, Random, Urine (06/16/2022 9:32 AM CDT) P athologist Signature pH, Random, U 5.0 4.5 - 8.0 06/16/2022 DTL 11:17 AM CDT Specimen Anatomical Collection Method Collection Time Receive d Time (Source) Location / / Volume Laterality Urine 06/16/2022 9:32 AM 2 CDT 10:39 AM CDT Maira Haynes M.D. LAB URINE ORDERABLES Performing Organization Address City/[facility]/ZIP Code Phon e Number [facility] - [address] (ABNORMAL) Microscopic Manual (06/16/2022 9:32 AM [...] M.D. LAB URINE ORDERABLES Performing Organization Address City/[facility]/ZIP Code Phon e Number [facility] - [id number] [place] [address] (ABNORMAL) Urinalysis with Microscopic: Urine, Catheter (06/16/2022 [...] e Number [facility] - [address] [place], [place] [address] [facility] [place] [address] [facility] 200 [facility] Vitamin B12 Assay (06/16/2022 7:31 AM [...] Volume Laterality Blood (Blood, 06/16/2022 7:31 AM 07/20/20 22 8:11 Venous) CDT AM CDT Kiran Melton M.D. LAB BLOOD ADD-ON Performing Organization Address City/[facility] Code Phon e Number [facility] - [address] Hemoglobin A1c (06/16/2022 7:31 AM CDT) P athologist Signature Hemoglobin A1c, 4.9 4.0 - 5.6 06/16/2022 DTL B % 8:13 AM CDT Specimen Anatomical Collection Method Collection Time Receive d Time (Source) Location / / Volume Laterality Blood (Blood, 06/16/2022 7:31 AM 06/16/20 7:51 Venous) CDT AM CDT Kiran Melton M.D. LAB BLOOD ADD-ON Performing Organization Address [facility] Phon e Number [facility] - [address] [place] [id number] [place] [address] (ABNORMAL) CBC without Differential (06/16/2022 7:31 AM [...] e Number [facility] - [address] [place], [place] [address] [facility] [place] [address] [facility] 200 [facility] (ABNORMAL) Comprehensive Metabolic Panel (06/16/2022 7:31 [...] 06/16/2022 DTL Black/ mL/min/BSA 8:22 AM CDT Chadian Comment: ----ADDITIONAL INFORMATION---- Estimated GFR calculated using [...] City/State/[facility] Code Phon e Number [facility] - [address] [place] [address] [facility] [place] [address] Laboratories-[facility] 200 [facility] Critical Care (06/15/2022 8:47 PM CDT) [...] life-threatening deterioration of the fo llowing conditions: REGULATORY ASSOCIATE failure or compromise Critical care was time spent personally by me on the following activities: ordering and review of radiographic stud ies, ordering and review of laboratory studies, discussions with [facility], discussions with consultants, examination of patient, rev iew of old charts and re-evaluation of patient's condition Scooter Tony APRN, C.N.P. PROCEDURE/MINOR SURGICA L ORDERABLES SARS Coronavirus 2, PCR Rapid, V Symptomatic (06/15/2022 7:51 PM CDT) [facility] [place] Method Time Signature SARS CoV-2, Undetected Undetected 06/15/2022 [facility] PCR, Rapid, V 8:23 PM CDT Comment: ----ADDITIONAL INFORMATION---- This RT-PCR test was performed using the Tita SARS-CoV-2 and Influenza A/B Reagent assay from [employer], which has received Emergency Use Authori zation(EUA) by the U.S. Food and Drug Administration . Fact sheets for this Emergency Use Autho rization (EUA) assay can be found at the following link s: For Healthcare Providers: https://www.fda.gov/media/786328/downloa d For Patients: https://www.fda.gov/media/571299/downloa d SARS Coronavirus 2, Source, Rapid Swab, Nasopharynx 06/15/2022 7:58 PM CDT STMA Specimen Anatomical Collection Method Collection Time Receive d Time (Source) Location / / Volume Laterality Varies 06/15/2022 7:51 PM 2 7:58 (Nasopharynx) CDT PM CDT Scooter Tony APRN, C.N.P. LAB MICROBIOLOGY - GENE RAL ORDERABLES Performing Organization Address City/State/ZIP Code Phon e Number [facility] - [address] [place], [place] [address] [facility] [place] [address] [facility] [address] Head [...] 2H/6H, 5th Gen (06/15/2022 2:48 PM CDT) Patholo gist Method Time Signature Troponin T, 2 [...] 06/15/20 3:21 Venous) CDT PM CDT Narrative [facility] - 06/15/2022 3:54 PM CDT Specimen Information: Specimen ID: [id number] Specimen Type: Blood Specimen Collection Start Date: 06/15/20 ??2:48 PM Specimen Received Date: 06/15/2022 ??3:2 1 PM Specimen ID: [id number] Specimen Type: Blood Specimen Collection Start Date: 06/15/20 ??3:53 PM Specimen Received Date: 06/15/2022 ??3:5 3 PM Demarcus Ernst M.D. LAB BLOOD TROPONIN Performing Organization Address City/State/ZIP Code Phon e Number [address] [address] [place] [address] [facility] 200 [facility] DX Hip And Pelvis Left 2-3 [...] Signature Ventricular Rate 58 BPM MUSE ECG/Min AL Interval 154 ms MUSE QRSD Interval 102 ms MUSE QT Interval 442 ms MUSE QTC Interval 433 ms MUSE P Jackhorn 48 degrees MUSE R Jackhorn -1 degrees MUSE T Wave Jackhorn 38 degrees MUSE Specimen Anatomical Collection Method [...] M.D. LAB BLOOD TROPONIN Performing Organization Address City/[facility] Phon e Number [facility] - [address] [place], [place] [address] [facility] [place] [address] [facility] 200 [facility] (ABNORMAL) Hepatic Function Panel (06/15/2022 12:37 [...] M.D. LAB BLOOD ADD-ON Performing Organization Address City/[facility]/ZIP Code Phon e Number [facility] - [address] [place], [place] [address] [facility] [place] [address] [facility] 200 [facility] Basic Metabolic Panel (06/15/2022 12:36 PM [...] CDT eGFR-Black/Afric >90 >=60 06/15/2022 STMA an Chadian mL/min/BSA 1:34 PM CDT Comment: ----ADDITIONAL INFORMATION---- [...] Phon e Number [facility] - [address] [place] [address] [facility] [place] [address] [facility] 200 [facility] (ABNORMAL) CBC with Differential, Blood (06/15/2022 12:36 PM CDT) [facility] [place] Method Time Signature Hemoglobin 10.4 (L) 11.6 [...] LAB BLOOD ADD-ON Performing Organization Address [facility]/ZIP [facility] Phon e Number [facility] - [address] [place], [place] [address] [place] [address] Laboratories-[address] [address] [address] Prothrombin Time (PT) (06/15/2022 12:34 PM CDT) P athologist Signature Prothrombin 10.2 9.4 - 12.5 06/15/2022 [facility] Time, P sec 1:10 PM CDT INR 0.9 0.9 - 1.1 06/15/2022 [facility] 1:10 PM CDT Comment: ----ADDITIONAL INFORMATION---- Standard intensity warfarin therapeutic range: 2.0 to 3.0 ?? High intensity warfarin therapeutic rang e: 2.5 to 3.5 Specimen Anatomical Collection Method Collection Time Receive d Time (Source) Location / / Volume Laterality Blood (Blood, 06/15/2022 12:34 06/15/2022 1:03 Venous) PM CDT PM CDT Demarcus Ernst M.D. LAB BLOOD ADD-ON Performing Organization Address City/[facility]/ZIP Code Phon e Number [facility] - [address] [address] [address] Interpretation of Outside CT Spine (06/15/2022 [...] Given 06/17/2022 9:20 AM CDT 1,000 mg vnuuesnfzoqkw-kdfbchqc-trrbmkmqh in Lipoderm Given 06/18/2022 10 :23 AM [...] Given 06/16/2022 9:16 AM CDT 150 mg fdtgepqkca-laqomiuipunmi-oxhn 50-325-40 mg Given 06/17 6:03 PM CDT [...] (TYLENOL) 0916 (Given - Provider: Gini Newberry RBetsy)1345 (Given - Provider: Gini Newberry RRebekah.)1803 (Given - Provider: Gini Newberry R.N.)2106 (Given - Provider: Sharifa TaylorN.) 0920 (Given - Provider: Gini Newberry R.N.)1153 [...] sources 2057 (Given - Provider: Erwin Tello RBrittonN.) bboqljfaoquxd-xunrpwit-lnopkowel in Lipoderm 2%-0.5%-2 % cream 1 g 1344 (Given - Provider: Gini Newberry R.N.)2110 (Given - Provider: Rufina Husain R.N.) 09 (Given - Provider: Gini Newberry R.N.)2100 (Given - Provider: Erwin Tello R.N.) 1023 (Given - Provider: Raquel Guajardo R.N.) 1 g, topical, 2 times daily, First dose on Tue06/16/22 at 0915 aprepitant capsule 40 mg (EMEND) 1315 (N ot Given - Provider: Gini Newberry R.N. - Reason: Other - Comment: possibly given on during procedure) 40 mg, oral, Once, On Clementine 06/17/22 at 1315, For 1 dose, Pre-Op aspirin [...] 915 (Given - Provider: Gini Newberry R.N.) 919 (Given - Provider: Gini Newberry R.N.) 1019 [...] T) 921 (Given - Provider: Gini Newberry R.N.)2110 (Given - Provider: Rufina Husain R.N.) 0921 (Given - Provider: Gini Newberry R.N.)210 (Given [...] 1 dose lamoTRIgine tablet 200 mg (LaMICtaL) 0921 (Given - Pro vider: Gini Newberry R.N.)210 (Given - Provider: Rufina Husain R.N.) 0919 (Given - Provider: Gini Newberry R.N.)2057 (Given [...] 0544 (Given - Provider: Tiffanie Mills R.N.) 0606 (Not Given - Provider: Rufina Husain R.N. - R tameka: NPO) 0716 (Given - Provider: Erwin Tello R.N.) 40 mg, oral, Daily before breakfast, Fir st dose on Tue06/16/22 at 0700, pantoprazole 40 mg oral daily was interchanged for esomeprazole 20 or 40 mg oral daily Swallow whole. Do NOT crush, chew, or split tablet. pregabalin capsule 300 mg (LYRICA) 915 (Given - Provi marquis: Gini Newberry R.N.)2108 (Given - Provider: Rufina Husain R.N.) 918 (Given - Provider: Gini Newberry R.N.)2057 (Given - Provider: Erwin Tello R.N.) 1018 (Given - Provider: Raquel Guajardo R.N.) 300 mg, oral, 2 times daily, First dose on Tue06/16/22 at 0900 rOPINIRole tablet 2 mg (REQUIP) 2108 (Given - Provider: Marilyn Husain RBrittonNBritton) 2058 (Given - Provider: Erwin Tello R.N.) [...] Patient/family refused) 102 (Not Given - Provider: Sharifa GavinNBritton - Reason: Patient/family refused) 1 tablet, oral, 2 times daily, First dose on Tue06/16/22 at 0900 sodium chloride 0.9 % injection 3 mL 0917 (Given - Pro vider: Gini Newberry R.N.)225 (Given - Provider: Laquita Calero R.N.) 923 (Given - Provider: Gini Newberry R.N.)2058 (Given - Provider: Erwin Tello R.N.) 102 (Not Given - Provider: Raquel Guajardo RBetsy - Reason: Loss of IV access) 3 [...] 0916 (Given - Pro vider: Gini Newberry R.N.)210 (Given - Provider: Rufina Husain RBrittonN.) 0920 (Given - Provider: Gini Newberry R.N.)2057 (Given [...] Tello RBrittonNBritton) 0515 (Given - Provider: Erwin gimeenz R.N.) 100 mg, oral, 3 times daily PRN, cough, Starting on Tue06/16/22 at 0107, Swallow whole. Do NOT crush, chew or open capsule. ayqhcuyoxh-eslabsrtmpand-ehqi 50-325-40 mg per tablet 1 tablet (ESGIC) 1359 (Given - Provider: Gini Newberry R.N.)2108 (Given - Provider: Rufina Husain R.N.) 1038 (Given - Provider: Kennedi Cabrera APRN, REGULATORY ASSOCIATE, M.S.N.)1803 (Given - Provider: Gini Newberry R.N.) 1 tablet, oral, Every 6 hours PRN, migraine, Starting on 05/29 at 0107 diphenhydrAMINE-zinc acetate 1 % cream 1 application ( BENADRYL) 1431 (Given - Provider: Gini Newberry R.N.) 1 application, topical, 4 times daily AL N, itching, Starting on Tue06/16/22 at 0306 [...] in Pyxis)2340 (Given - Provider: Laquita Calero RBrittonNBritton) 8 mg, oral, 3 times daily PRN, [...] R.N.) 0515 (Given - Provider: Erwin gimenez R.N.)1024 (Given - Provider: Raquel Guajardo RBrittonNBritton) 10 [...] COMPLETED) 1642 (Given - Provider: Sapphire Verma, MANAGER OF TRAINING AND DEVELOPMENT, CURB ATTENDANT, DNAP) 1 patch, transdermal, Administer over 72 [...] as of this encounter Care Teams Industrial Custodian Relationship Specialty Start Date End Date Elsewhere, Pcp PCP - General Family Medicine 12/25/21 documented as of this encounter
--- OUTSIDE RECORDS SUMMARY | 2022-11-06 15:26 | XMS_ITS | Encounter Summary ---
:1965 Author Organization [facility] Address [address] [place] [address] Care Team Providers Name Role Phone Elsewhere, Pcp Primary Care Provider Unavailable Reason for Referral Outpatient (Routine) - Closed Specialty Diagnoses / Procedures Referred By Contact Refer red To Contact Diagnoses Aftercare Total Shoulder Arthroplasty Flavia Broderick M.D. [facility] Procedures DX Shoulder Left 2+ Views Referral ID Status Reason Start Date Expiration Date Visits Requ ested Visits Authorized [id number] Closed 06/23/2022 06/23/2023 1 1 Reason for Visit Outpatient (Routine) - Closed Specialty Diagnoses / Procedures Referred By Contact Refer red To Contact Diagnoses Aftercare Total Shoulder Arthroplasty Flavia Broderick M.D. [facility] Procedures DX Shoulder Left 2+ Views Referral ID Status Reason Start Date Expiration Date Visits Requ ested Visits Authorized [id number] Closed 06/23/2022 06/23/2023 1 1 Encounter Details Date Type Department Care Team Description 06/29/2022 Hospital Encounter Department of Flavia Broderick re Total Radiology, Severiano Porter M.D. Shoulder Arthroplasty Building, in [place], [place] [address] [place] [address] Social History Tobacco Use Types Packs/Day Years [...] you attend latter-day or Patient refused 2021 tenriism services? Do [...] mg by mouth 0 mg tablet daily. cholecalciferol (VITAMIN Take 5,000 Units by 0 D3) 125 mcg (5,000 Unit) mouth daily. capsule clindamycin (CLEOCIN T) Apply 1 application 0 1 % external solution topically 2 (two) times a day. Apply to face. cyanocobalamin, vitamin Place 5,000 mcg 0 022 B-12, 2,500 mcg tablet, under the tongue sublingual daily. diclofenac sodium Apply 2-4 g 0 01/01/2022 (VOLTAREN) 1 % gel topically 4 (four) times a day as needed. doxycycline monohydrate TAKE 1 TABLET BY 28 tablet 0 202102/26/2023 (ADOXA) 100 mg tablet MOUTH TWO TIMES A DAY FOR 14 DAYS esomeprazole (NexIUM) 40 Take 1 capsule (40 [...] THC multivit-min/iron/folic/ Take 1 tablet by 0 qru692 (HAIR, SKIN AND mouth daily. NAILS ADVANCED ORAL) naloxone (NARCAN) 4 Administer 1 spray 0 03/26/20 22 mg/actuation nasal spray into one nostril as directed. SPRAY 0.1 MILLILITER BY INTRANASAL ROUTE IN 1 NOSTRIL MAY REPEAT DOSE EVERY 2-3 MINUTES NEEDED ALTERNATING NOSTRILS ondansetron ODT 4 mg as needed. 0 05/22/2022 (ZOFRAN-ODT) 4 mg disintegrating tablet oxyCODONE (ROXICODONE) Take 10 mg by mouth [...] times 8.6-50 mg per tablet a day. SUMAtriptan (IMITREX) 5 1-2 sprays as 0 2 mg/actuation nasal spray needed. tiZANidine (ZANAFLEX) 4 Take 4-8 mg by [...] documented as of this encounter Care Teams Utilities Service Investigator Relationship Specialty Start Date End Date Elsewhere, Pcp PCP - General Family Medicine 12/25/21 documented as of this encounter
--- OUTSIDE RECORDS SUMMARY | 2022-11-06 15:26 | XMS_ITS | Encounter Summary ---
:1965 Author Organization [facility] Address [address] [place] [address] Care Team Providers Name Role Phone Elsewhere, Pcp Primary Care Provider Unavailable Reason for Visit Reason Comments Medication Question Encounter Details Date Type Department Care Team Description 06/21/2022 Clinical Communication RST ANDREW Pollard, Medication Question 200 [facility] Lilian Hughes [place], [place] 200 [facility] [address] [place] [address] Social History Tobacco Use Types Packs/Day Years [...] 1:12 PM CDT Prescriptions are sent to [facility] Telephone Encounter - Brenda Wright - 06/23/2022 3:02 PM CDT The patient called again re: her pregabalin prescription. She did not pick it up at the hospital pharmacy since she did not know it was there. Her regular pharmacy is [facility] in [place]. A newprescription needs to be sent to [facility] in [place]. The patient is out of this medication. Please call the patient if any questions: . She has been calling and has not heard from anyone re: this. Maritza Jefferson [phone] Patient is saying that she never was told to pharmacy picking tech the following prescription when she was discharged on 06/17: pregabalin (LYRICA) 300 mg capsule Please send new prescription to [facility] in [place], [place] Please call patient if there are any questions. Brenda Jeffesron [phone] documented in this encounter Plan of Treatment Not on filedocumented as of this encounter Visit Diagnoses Not on filedocumented in this encounter Additional Health Concerns Assessment Noted Time PHQ-9 Depression Total Score: 16 02/11/2021 12:00 AM C DT documented as of this encounter Care Teams Research Home Economist Relationship Specialty Start Date End Date Elsewhere, Pcp PCP - General Family Medicine 12/25/21 documented as of this encounter
--- OUTSIDE RECORDS SUMMARY | 2022-11-06 15:26 | XMS_ITS | Encounter Summary ---
:1965 Author Organization [facility] Address [address] [place] [address] Care Team Providers Name Role Phone Elsewhere, Pcp Primary Care Provider Unavailable Reason for Visit Reason Comments Pregabalin prescription Encounter Details Date Type Department Care Team Description 06/22/2022 Clinical Communication RST ANDREW Pollard, Pregabalin [address] [facility] Lilian Hughes prescription [place], [place] 200 [facility] [address] [place] [address] Social History Tobacco Use Types Packs/Day Years [...] you attend baptist or Patient refused 2021 hinduism services? Do [...] Maritza Carrillo - 06/22/2022 12:18 PM CDT [facility] called. The patient had a prescription for Pregabalin sent to one of the [place] pharmacies on 06/17/22 and she never picked it up. [facility] would like the prescription sent to them since they provide the prescriptions to the patient. Please phone or send a new prescription for Pregabalin 300 mg to [facility] in [place]. Please do as soon as able, the patient is out of this medication. Thank you, Maritza [phone] documented in this encounter Plan of Treatment Not on filedocumented as of this encounter Visit Diagnoses Not on filedocumented in this encounter Additional Health Concerns Assessment Noted Time PHQ-9 Depression Total Score: 16 02/11/2021 12:00 AM C DT documented as of this encounter Care Teams Police Chief Relationship Specialty Start Date End Date Elsewhere, Pcp PCP - General Family Medicine 12/25/21 documented as of this encounter
--- OUTSIDE RECORDS SUMMARY | 2022-11-06 15:26 | XMS_ITS | Encounter Summary ---
:1965 Author Organization [facility] Address [address] [place] [address] Care Team Providers Name Role Phone Elsewhere, Pcp Primary Care Provider Unavailable Encounter Details Date Type Department Care Team Description 06/17/2022 Orders Only RST HIM Latrice, Chronic Pain Syndrome (Prima ry Dx); [address] [facility] Lilian Hughes Transient Ischemic Attack; [place], [place] [address] [facility] Fibromyalgia [address] [place] [address] Social History Tobacco Use Types Packs/Day Years [...] you attend zoroastrianism or Patient refused 2021 congregational services? Do [...] documented as of this encounter Care Teams Infrastructure Solutions Architect Relationship Specialty Start Date End Date Elsewhere, Pcp PCP - General Family Medicine 12/25/21 documented as of this encounter
--- OUTSIDE RECORDS SUMMARY | 2022-11-06 15:27 | XMS_ITS | Encounter Summary ---
:1965 Author Organization [facility] Address [address] [place] [address] Care Team Providers Name Role Phone Elsewhere, Pcp Primary Care Provider Unavailable Reason for Visit Reason Comments Post-op Problem Encounter Details Date Type Department Care Team Description 06/03/2022 Clinical Communication Department of Cyrus Polk st-op Problem Orthopedic Surgery in Lilian Souza [place], [place] [address] [place] [address] 200 [place] [address] [phone] Social History Tobacco Use Types Packs/Day Years [...] you attend faith or Patient refused 2021 confucianism services? Do [...] Cyrus Polk M.D. CT CT Job ID: [id number] documented in this encounter Miscellaneous Notes Telephone [...] bent forward again. Please call her at [phone] to discuss. documented in this encounter Plan of Treatment Not on filedocumented as of this encounter Visit Diagnoses Not on filedocumented in this encounter Additional Health Concerns Assessment Noted Time PHQ-9 Depression Total Score: 16 02/11/2021 12:00 AM C DT documented as of this encounter Care Teams Sample Book Maker Relationship Specialty Start Date End Date Elsewhere, Pcp PCP - General Family Medicine 12/25/21 documented as of this encounter
--- OUTSIDE RECORDS SUMMARY | 2022-11-06 15:27 | XMS_ITS | Encounter Summary ---
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 Shoulder Joint Disorder Left; [place], [facility] [address] [place] Pain Shoulder Left; Building, [address] [place], [place] Primary Os teoarthritis Shoulder Left Floor [address] [address] [facility] [phone] [place], [place] (Work) [address] Social History Tobacco Use [...] you attend sabianism or Patient refused 2021 pentecostal services? Do [...] AM CDT DISCHARGE SUMMARY BRIEF OVERVIEW Hospital: [facility] Discharge Provider: Cyrus Polk M.D. Primary [...] RST ROEI OR DISCHARGE DISPOSITION Home-Health Care [facility] [6] ACTIVE ISSUES REQUIRING FOLLOW UP This document serves as a prescription to continue physical therapy, medications, and labs or x-raysif ordered/required. If you have any questions or concerns about surgery or upcoming appointments, please do not hesitateto contact Dr. Polk's office at [phone] during regular business hours (8am-5pm M-F). For emergencies on the weekend or after hours, you may contact Dr. Polk's service via the [facility] log processor operator at [phone]. Details for your 6 week follow-up appointment [...] to: Cyrus Polk MD Dept of Orthopedics [address], [address] None OUTPATIENT FOLLOW UP For appointment details [...] M.D.Jenna Zaldivar M.D.Markos, James R, M.D. [facility] OR Angie Mosquera was taken [...] THC multivit-min/iron/folic/ Take 1 tablet by 0 [id number] (HAIR, SKIN AND mouth daily. NAILS ADVANCED [...] 0 12/2021 total) by mouth every evening. doxycycline monohydrate TAKE 1 TABLET BY 28 tablet 0 202102/26/2023 (ADOXA) 100 mg tablet MOUTH TWO TIMES A DAY FOR 14 DAYS naloxone (NARCAN) 4 Administer 1 spray 0 [...] session: yes Outcome Measures -[facility] Inpatient Short Form: AM-[facility] Basic Mobility (V.2) How [...] a railing?: A Little AM-[facility] Basic Mobility (V.2) Raw Score: 18 AM-[facility] Basic Mobility (V.2) Standardized Score: 41.05 Interpretation: Clinicians answer the -[facility] [...] 6 am until 6 pm, please page [facility] [phone] For urgent matters from 6 pm until 6 am, please page Ortho House at [facility] [phone] Jane Nguyen Pharm.D., R.Ph. - 05/19/2022 8:12 [...] at this time. Jane Nguyen Pharm.D., R.Ph. [phone] Kaushik Cadena M.D. - 05/19/2022 7:34 AM [...] 6 pm, please page Jam service at [phone] For urgent matters from 6 pm until 6 am, please page [facility] at [facility] [phone] Paco Valentine - 05/18/2022 9:47 AM CDT Encounter: AM Admit Deanna Tradition: No pentecostal affiliation. Ms. Mosquera did not express any spiritual needs at this time. Plan: Will remain available for spiritual care as needed or requested. [facility]pl[facility] [phone] ([facility]). Rodrigo Preston, Pharm.D., R.Ph. - 05/18/2022 [...] Take 150 mg by mouth every morning. uuhxtqphch-qctmsuutwmqil-bjyt (ESGIC) 50-325-40 mg per tablet Past Week [...] 1 spray as needed. 5 mg THC multivit-min/iron/folic/nbi590 (HAIR, SKIN AND NAILS ADVANCED ORAL) Past [...] (HCC) ??? Nicotine Dependence Unspecified ??? Other Senior Living Current Drug Therapy ??? Direct Infection Of [...] Profile Lives With: Alone Receives Help From: surgical attendant, Family, Friend(s) ADL Assistance: Required assistance ADL Assistance Comments: Gets help from WOMEN'S BASKETBALL COACH for her bath/shower 3x/week, and for her meals IADL/Homemaking Assistance: Required assistance IADL/Homemaking Assistance Comments: Gets help for housecleaning Driving: Does not drive Driving Comments: takes her cane and medical alert with her. Occupational Role: On disability Occupational Role Comments: Previously worked at a [employer] and [employer] Prior Mobility/Functional Transfers Level of Sherman: Needs assistance Previous Transfer/Mobility Assistance Comments: Patient [...] mask during therapy session: yes Outcome Measures AM-[facility] Inpatient Short Form: AM-[facility] Basic Mobility (V.2) How [...] 3-5 steps with a railing?: A Little -[facility] Basic Mobility (V.2) Raw Score: 18 AM-[facility] Basic Mobility (V.2) Standardized Score: 41.05 Interpretation: Clinicians answer the -[facility] [...] (min): 33 min Jey Harper P.T., D.P.T. Roalnd Hall R.N. - 05/19/2022 11:40 AM CDTAssociated Order(s): IP CONSULT TO CARE MANAGEMENT; IP CONSULT TO CARE MANAGEMENT Discharge Planning Assessment SUBJECTIVE Assessment Information Referral Source: Nurse Referral Reason: Discharge Planning Primary Language: Kazakh Machine Attendant Services Used: No Person(s) present during interview: Person(s) Present During Interview: patient History of Present Illness #1 Primary Osteoarthritis Shoulder Left Social History Support System: children, rn field case manager/social media content specialist, friends/neighbors and home care staff Patient's Home [...] Calm, Oriented Communication: Talks, Understands speaking, Understands Kazakh Shopping: Needs assistance Transportation: Support from family Medication Management: Needs assistance Housekeeping: Needs assistance Meal Prep: Needs assistance Managing Finances: Independent Assistive Devices: Grab bars - wall, Eyeglasses Services/Resources: Other (comment) Agency Name: [facility] Services Provided: WOMEN'S BASKETBALL COACH services 3x/week, nurse visits every other week Baseline Services/Resources Primary care clinic and provider: [place], [facility] Phone: Fax: Anticipated Needs Functional Status: Transfer to/from bed, chair, etc., Bathing, Dressing, Grooming/hygeine, Housekeeping, Shopping, Meal preparation, Mobility, Medication set-up/administration, Transportation use (drive car, use taxi/bus) Services/Resources: Other (comment) Agency Name: [facility] Services Provided: WOMEN'S BASKETBALL COACH services 3x/week, nurse visits every other week Transportation Needs: Support from family Does the patient need discharge transport arranged?: No Ride and Caregiver Arranged: Yes Anticipated Discharge Destination: Home-Health Care [facility] ASSESSMENT / PLAN Assessment: The flue cleaner met with Angie Mosquera to discuss her current hospitalization and home goingneeds. The patient was unaccompanied. The patient was a reliable historian. The role of flue cleaner was reviewed. The patient reviewed her prior level of care and support system. The patient receives support from her son, friends and home care staff. Patient reported her son lives in the same apartment as her. She also stated getting WOMEN'S BASKETBALL COACH services 3x/week and a nurse visits her every other week. The patient described her living environment as a two bedroom apartment. Housekeeping, grocery shopping, meal prep, and other household responsibilities have previously been completed by patient, patient's son and patient's caregiver(s). flue cleaner discussed the patient's potential needs at [facility] based on their home setting, previous needs and responsibilities, homebound status, and relevantassessments with the patient. The patient will be safe and supported to return home with [facility] or previous services noted above when [...] their current vendor(s): [facility]. During this visit patient verbalized she is hoping to increase her WOMEN'S BASKETBALL COACH hours and also inq uired about getting a scooter to assist in her mobility. Patient went on to share she is unstable attimes due to her stroke history. She thought perhaps her neurology doctor would be able to help her get a scooter. RN CM recommended she follow up with the [facility] in regards to wanting more WOMEN'S BASKETBALL COACH hours. She was also recommended to follow up with her primary care provider to provide durable medical equipment justification for a scooter, as she is currently hospitalized for orthopedic surgery. Patient verbalized understanding. Patient informed RN CM would be reconnecting her WOMEN'S BASKETBALL COACH services and nurse visits with [facility]. Patient agreeable to RN CM completing this and even provided RN CM the name and contact of her WOMEN'S BASKETBALL COACH and RN. After reviewing the patient's chart and meeting with the patient, the flue cleaner deemed the LACE+/readmission questions were not necessary. The patient reports understanding that she will dismiss from the hospital when medically stable. Pending hospital course and medical readiness, no barriers to dismissal have been identified at this time. Plan: Patient to discharge with home health care. [facility] Contact: RADHA Palomino ATTN: Georgette NURSING: [...] dismissal will be provided by family. 3. flue cleaner recommended reaching out to family, friends, and neighbors for assistance. 4. flue cleaner provided information regarding the dismissal process. 5. flue cleaner placed or requested the following hospital-based consult orders and/or referrals:None. 6. flue cleaner will continue to assess for homegoing needs with the interdisciplinary team. 7. flue cleaner encouraged the patient to reach out with [...] falls. Patient will discharge to home with [facility] reconnect. Identify possible barriers to meeting goals/advancing plan of care: none End of Shift Summary: Patient stayed on schedule with prn pain meds (Tramadol and oxycodone) throughout the shift. Encouraged using ice packs to help with pain and swelling. Patient's primapore dressing was changed to Aquacell AG and is clean, dry and intact. Patient has baseline numb/tingling, moderate construction quality control manager, skin pink and warm with +2 pulses. Patient expects RN from [facility] to visit on Tuesday, May 24. Patient's friend will transport home. Medications including: oxycodone and tramadol were picked up [facility]. documented in this encounter OR Notes Op Note - Cyrus Polk M.D. - 05/18/2022 5:54 PM CDT STAFF: Cyrus Polk M.D. RESIDENT: Jenna Zaldivar M.D. PRE-OPERATIVE DIAGNOSIS Left dislocated reverse arthroplasty. POST-OPERATIVE DIAGNOSIS Left dislocated reverse arthroplasty. A cutting table operator first actively participated and was necessary for [...] glenosphere, placement new humeral stem and tray, [id number] Cyrus Polk M.D. CT CT Job ID: [id number] documented in this encounter Miscellaneous Notes Hospital Course - Kaushik Cadena M.D. - 05/19/2022 12:18 PM CDT Surgery Information This Encounter Past Procedures (05/19/2021 to Today) Date Procedures Providers Location 05/18/2022 ARTHROPLASTY REPLACEMENT TOTAL SHOULDER. Cyrus Polk M.D.Wasserburger, Jory N, M.D.Markos, James R, M.D. [facility] OR Angie Mosquera [...] with Differential, Blood (05/20/2022 3:43 AM CDT) [facility] Method Time Signature Hemoglobin 8.4 (L) [...] Organization Address City/State/ZIP Code Phon e Number [facility] - [address] [place] [phone] [facility] [place] [address] [facility] [address] [facility] (ABNORMAL) CBC with Differential, Blood (05/19/2022 3:26 AM CDT) [facility] gist Method Time Signature Hemoglobin 7.6 [...] M.D. LAB BLOOD ADD-ON Performing Organization Address City/State/[facility] Code Phon e Number [facility] - [address] [place] [phone] [facility] [place] [address] [facility] 200 [facility] (ABNORMAL) Basic Metabolic Panel (05/19/2022 [...] 05/19/2022 DTL Black/ mL/min/BSA 4:38 AM CDT Cambodian Comment: ----ADDITIONAL INFORMATION---- Estimated GFR calculated using [...] Organization Address City/State/ZIP Code Phon e Number [facility] - [address] [place], [place] [address] [facility] [address] [facility] 200 [...] Jenna Zaldivar M.D. IMG DIAGNOSTIC IMAGING PROCE [facility] Surgical Pathology, Frozen Lab (05/18/2022 1:04 PM CDT) Component Value Ref Test Analysis Performed At [facility] Method Time Signature 05/20/2022 METH 11:46 [...] Code Phon e Number [facility] - [address] [place] [phone] [facility] [place] [address] [facility] [address] [facility] Bacteria Cult, Aerobe / Anaerobe+Susc (05/18/2022 1:03 PM CDT) [facility] gist Method Time Signature Bacteria Cult, No growth 06/01/2022 DTL Aerobe/Anaerob after 14 6:02 PM CDT e+Susc days of incubation. Specimen Anatomical Collection Method Collection Time Receive d Time (Source) Location / / Volume Laterality Shoulder, Left 05/18/2022 1:03 PM 022 5:21 CDT PM CDT Comment: Specimen Source Site: Tissue #1 Narrative [facility] - 06/01/2022 6:02 PM CDT Bacterial Culture: Placed in Bactec aero bic and Bactec anaerobic bottles Cyrus Polk M.D. LAB MICROBIOLOGY - GENERAL O MARY Performing Organization Address [facility] Phon e Number [facility] - [address] [place], [place] [address] [facility] [place] [address] [facility] 200 [facility] Bacteria Cult, Aerobe / Anaerobe+Susc (05/18/2022 1:03 PM CDT) [facility] Method Time Signature Bacteria Cult, No growth 06/01/2022 DTL Aerobe/Anaerob after 14 6:02 PM CDT e+Susc days of incubation. Specimen Anatomical Collection Method Collection Time Receive d Time (Source) Location / / Volume Laterality Shoulder, Left 05/18/2022 1:03 PM 022 5:12 CDT PM CDT Comment: Specimen Source Site: Tissue #3 Narrative [facility] - 06/01/2022 6:02 PM CDT Bacterial Culture: Placed in Bactec aero bic and Bactec anaerobic bottles Cyrus Polk M.D. LAB MICROBIOLOGY - GENERAL Lebron HERNANDEZ Performing Organization Address City/[facility] Phon e Number [facility] - [address] [place], [place] [address] [place] [address] [facility] 200 [facility] Bacteria Cult, Aerobe / Anaerobe+Susc (05/18/2022 1:03 PM CDT) [facility] Method Time Signature Bacteria Cult, No growth 06/01/2022 DTL Aerobe/Anaerob after 14 6:02 PM CDT e+Susc days of incubation. Specimen Anatomical Collection Method Collection Time Receive d Time (Source) Location / / Volume Laterality Shoulder, Left 05/18/2022 1:03 PM 022 5:07 CDT PM CDT Comment: Specimen Source Site: Tissue #2 Narrative [facility] - 06/01/2022 6:02 PM CDT Bacterial Culture: Placed in Bactec aero bic and Bactec anaerobic bottles Cyrus Polk M.D. LAB MICROBIOLOGY - GENERAL O RDERABLES Performing Organization Address City/State/ZIP Code Phon e Number [facility] - [address] [place], [place] [address] [facility] [place] [address] [facility] 200 [...] Corrie Toscano RBetsy)2339 (Given - Provider: Catalina Mccloud, RBrittonN.) 0511 (Given - Provider: Catalina Mccloud RRebekah.)1153 (Given - Provider: Isaura Vu R.N.)1725 (Given - Provider: Candace Lanza, Carole.S.N., R.N., O.C.N.) 0125 (Given - Provider: Jonny PérezS.N., R.N.)0552 (Given - Provider: Jere Levy R.N.)1206 [...] at 1030 atorvastatin tablet 80 mg (LIPITOR) 205 (Given - Prov ider: Bettie Macias R.N.) 2226 (Given - Provider: Candace Lanza, Carole.S.N., R. N., O.C.N.) 80 mg, oral, Daily at bedtime, First dose on Tue05/18/22 at 2100 buPROPion XL 24 hr tablet 150 mg (WELLBUTRIN XL) 0849 (Given - Provider: Isaura Vu RBrittonN.) 0908 (Given - Provider: Isaura Vu R.N.) [...] 1240 (Given - Provider: Ihsan Townsend APRN, LARRY OPERATOR) 2,000 mg (rounded from 1,652.5 mg [...] R.N.) 2224 (Given - Provider: Candace guerra M.S.NBritton, R.N., [...] OMPLETED) 1240 (Given - Provider: Ihsan Townsend SALES CONSULTANT INSURANCE, LARRY OPERATOR) 1,000 mg (1 g), intravenous, at [...] Bettie Macias R.N.) 0848 (Given - Provider: Isuara Vu R.N.)2224 (Given - Provider: Jonny ThorneSBetsy, R.N., O.C.N. - Comment: pt request) 0907 [...] (CEPACOL) 0510 (Given - Provider: Catalina Mccloud RBrittonNBritton)1015 (Given - Provider: Isaura Vu R.N.) 1 lozenge, oral, As needed, sore throat, Starting on Tue05/18/22 at 1608 benzonatate capsule 100 mg (TESSALON PERLES) 0501 (Given - Provider: Catalina Mccloud RBetsy)2233 (Given - Provider: Candace Lanza, Carole.S.N., R.N., [...] Provider: Isaura Vu R.N.)1957 (Given - Provider: Sharifa AndradeNBritton)2241 (Given - Provider: Jonny ThorneSBrittonN., R.N., O.C.N.) 400 mg of calcium, oral, Every 2 hour AK N, indigestion, Starting on Tue05/18/22 at 1608, [...] Corrie Toscano R.N.) 0504 (Given - Provider: Christiano ArcherBrittonNBritton) 092 1 (Given - Provider: Isaura Vu [...] Provider: Eve Smith R.N.)1430 (Given - Provider: Sharifa PosadaNBritton)1437 (Given - Provider: Eve Smith RBrittonNBritton) 25 mcg, intravenous, Every 2 min [...] (ZOFRAN) 4 (Given - Provider: Jere Levy R.N.) 1502 (Given - Provider: Kiana Ramírez R.N.) [...] 15 02 (Given - Provider: Viktoriya Land R.N.) 4 [...] Corrie Toscano R.N.)2339 (Given - Provider: Catalina Mccloud, RBrittonN.) 0339 (Given - Provider: Catalina Mccloud [...] Pérez.S.NBritton, R.N.)0552 (Given - Provider: Jere Levy R.N.)1004 (Given - Provider: Isaura Vu R.N. - Comment: 8-08/07 per pt)1406 (Given - Provider: Isaura Vu [...] over 3 days 1 patch (TRANSDERM S BSA/AML COMPLIANCE OFFICER) (CANCELED) 1118 (Medication Applied - Provider: Cristy [...] See Alternative - Provider: Bettie Macias R.N.) 06 (Given - Provider: Catalina lerma R.N.)1209 (Given - Provider: Isaura Vu RBrittonN.) 0124 (Given - Provider: Rafal Waller M.S.N., R.N.)0732 (Given - Provider: Isaura Vu [...] (Geronimo iven - Provider: Bettie Macias R.N.) 611 (See Alternative - Provider: Sal Mccloud R.N.)1209 (See Alternative - Provider: Isaura Vu R.N.) 0124 (See Alternative - Provider: Carole Pérez.S.N., R.N.)0732 (See Alternative - Provider: Isaura Vu R.N.)1351 (See Alternative - Provider: Isaura Vu R.N.) [...] documented as of this encounter Care Teams Wheelchair Van Operator First Responder Relationship Specialty Start Date End Date Elsewhere, Pcp PCP - General Family Medicine 12/25/21 documented as of this encounter
--- OUTSIDE RECORDS SUMMARY | 2022-11-06 15:27 | XMS_ITS | Encounter Summary ---
:1965 Author Organization [facility] Address [address] [place] [id number] Care Team Providers Name Role Phone Elsewhere, Pcp Primary Care Provider Unavailable Reason for Visit Reason Comments xray results Encounter Details Date Type Department Care Team Description 06/10/2022 Clinical Communication Department of Cyrus Polk ay results Orthopedic Surgery in Lilian Souza [place], [place] [address] [place] [address] 200 [place] [address] [phone] Social History Tobacco Use Types Packs/Day Years [...] you attend orthodoxy or Patient refused 2021 congregational services? Do [...] Cyrus Polk M.D. CT CT Job ID: [id number] documented in this encounter Miscellaneous Notes Telephone [...] documented as of this encounter Care Teams Entertainment Centre Manager Relationship Specialty Start Date End Date Elsewhere, Pcp PCP - General Family Medicine 12/25/21 documented as of this encounter
--- OUTSIDE RECORDS SUMMARY | 2022-11-06 15:27 | XMS_ITS | Encounter Summary ---
:1965 Author Organization [facility] Address [address] [place] [address] Care Team Providers Name Role Phone Elsewhere, Pcp Primary Care Provider Unavailable Reason for Visit Reason Comments Followup [facility] Patient Encounter Details Date Type Department Care Team Description 06/15/2022 Clinical Communication Department of [facility], Robert gay ([facility] Neurology in [place], MBrittonDBritton Patient/) [place], [facility] [place], [place] [address] [place] [address] [place], [place] [phone] [address] (Work) [phone] Social History Tobacco Use Types Packs/Day Years [...] you attend hoahaoism or Patient refused 2021 latter-day services? Do [...] She did end up being seeing in [place] and had a CT scan. I told her to followup with them and make sure that the images are sent here for Dr. Diehl to review. Caller was made aware of the two- to four-business day call turnaround time. Date last seen: 11/17/2021 Future appointment: None scheduled Dx: Stroke Cerebrovascular Accident Personal History Allyssa Amaya, Cashiers Supervisor 06/15/22 8:18 AM CDT documented in this encounter Plan of Treatment Not on filedocumented as of this encounter Visit Diagnoses Not on filedocumented in this encounter Additional Health Concerns Assessment Noted Time PHQ-9 Depression Total Score: 16 02/11/2021 12:00 AM C DT documented as of this encounter Care Teams Slitting Machine Feeder Relationship Specialty Start Date End Date Elsewhere, Pcp PCP - General Family Medicine 12/25/21 documented as of this encounter
--- OUTSIDE RECORDS SUMMARY | 2022-11-06 15:27 | XMS_ITS | Encounter Summary ---
:1965 Author Organization [facility] Address [address] [place] [address] Care Team Providers Name Role Phone Elsewhere, [...] attend roman catholic or Patient refused 2021 pentecostal services? Do [...] documented as of this encounter Care Teams Litigation Docket Manager Relationship Specialty Start Date End Date Elsewhere, Pcp PCP - General Family Medicine 12/25/21 documented as of this encounter
--- OUTSIDE RECORDS SUMMARY | 2022-11-06 15:27 | XMS_ITS | Encounter Summary ---
:1965 Author Organization [facility] Address [address] [place] [address] Care Team Providers Name Role Phone Elsewhere, Pcp Primary Care Provider Unavailable Encounter Details Date Type Department Care Team Description 05/17/2022 Hospital Encounter Department of Alfredo Herrera Preo perative Exam Laboratory Medicine [facility], [place] [address] [place] [address], in [place], [place] [address] [place] [address] [place], [place] (Work) [phone] Social History Tobacco Use [...] you attend religion or Patient refused 2021 amish services? Do [...] TWO TIMES A DAY FOR 14 DAYS FLUoxetine (PROzac) 40 Take 80 mg by [...] THC multivit-min/iron/folic/ Take 1 tablet by 0 [id number] (HAIR, SKIN AND mouth daily. NAILS ADVANCED [...] CDT Manual Absolute 2.24 1.56 - 05/17/2022 PM Neutrophil Count 6.45 1:04 PM CDT x10(9)/L Comment: ----ADDITIONAL INFORMATION---- The manual absolute neutrophil count is derived from a manual differential count and therefore is not exactly comparable to the automated absolute leilani trophil count. Interpretation SeeComment 05/17/2022 1:04 PM CDT D HPM Comment: Hypochromic microcytic red blood cells a re present; consider iron deficiency anemia. Reviewed by: Tech 05/17/2022 1:04 PM CDT [facility] Specimen Anatomical Collection Method Collection Time Receive d Time (Source) Location / / Volume Laterality Blood 05/17/2022 10:50 05/17/2022 AM CDT 11:30 AM CDT Alfredo Kamara LAB BLOOD ADD-ON Performing Organization Address City/State/ZIP Code Phon e Number [facility] - [facility] [address] [place], [place] [address] [place] [address] [facility] [place] [address] Basic Metabolic Panel (05/17/2022 [...] [facility] - [address] [place], [place] [address] [facility] [place] [address] [facility] Type and Screen (with reflex Antibody ID) (05/17/2022 10:50 AM CDT) [facility] Method Time Signature ABORh A Neg Not [...] Number [facility] - [address] [place] [address] [facility] [place] [address] Laboratories-[address] (ABNORMAL) CBC with Differential, Blood (05/17/2022 10:50 AM CDT) [employer] Method Time Signature Hemoglobin 9.2 (L) 11.6 [...] [facility] - [address] [place], [place] [address] [facility] [place] [address] Laboratories-[facility] [address] documented in this encounter Visit Diagnoses Diagnosis Preoperative Exam documented in this encounter Additional Health Concerns Infection Onset Date Last Indicated Resolved Time COVID19 Pending 05/17/2022 05/17/2022 05/17/2022 2:34 PM CDT Assessment Noted Time PHQ-9 Depression Total Score: 16 02/11/2021 12:00 AM C DT documented as of this encounter Care Teams Earrings Fabricator Relationship Specialty Start Date End Date Elsewhere, Pcp PCP - General Family Medicine 12/25/21 documented as of this encounter
--- OUTSIDE RECORDS SUMMARY | 2022-11-06 15:27 | XMS_ITS | Encounter Summary ---
:1965 Author Organization [facility] Address [address] [place] [address] Care Team Providers Name Role Phone Elsewhere, Pcp Primary Care Provider Unavailable Reason for Visit Reason Comments Scooter prescription Encounter Details Date Type Department Care Team Description 05/19/2022 Clinical Communication Department of Robert Diehl prescription Neurology in [place], [facility] [address] [place], [place] [address] [place] [address] [place], [place] [phone] (Work) [phone] Social History Tobacco Use Types Packs/Day Years [...] you attend shinto or Patient refused 2021 methodist services? Do [...] yesterday and is currently still admitted to [facility] until tomorrow. I encouraged her to reach [...] Stroke Cerebrovascular Accident Personal History Olivia Pedroza Creative Guru 05/19/22 11:51 AM CDT documented in this encounter Plan of Treatment Not on filedocumented as of this encounter Visit Diagnoses Not on filedocumented in this encounter Additional Health Concerns Assessment Noted Time PHQ-9 Depression Total Score: 16 02/11/2021 12:00 AM C DT documented as of this encounter Care Teams Muck Miner Relationship Specialty Start Date End Date Elsewhere, Pcp PCP - General Family Medicine 12/25/21 documented as of this encounter
--- OUTSIDE RECORDS SUMMARY | 2022-11-06 15:27 | XMS_ITS | Encounter Summary ---
:1965 Author Organization [facility] Address [address] [place] [address] Care Team Providers Name Role Phone Elsewhere, Pcp Primary Care Provider Unavailable Encounter Details Date Type Department Care Team Description 05/18/2022 Anesthesia Event RST SEBAS MORAN OR Kaushik Carpenter, [address] [facility] [place] [address] [address] [facility] [phone] [place] [address] (Wo rk) Anesthesia Record Procedure Summary Procedure [...] h andoff to the receiving staff during [facility] we 1. Identified the patient 2. [...] by Placement Time: 1220 Ihsan Patel APRN, DIRECTOR OF ENTERPRISE STRATEGY Ihsan Townsend APRN, (created via procedure DIRECTOR OF ENTERPRISE STRATEGY documentation); Mask Ventilation: Easy mask; Type: Standard [...] you attend taoist or Patient refused 2021 rastafarian services? Do [...] Procedure Summary Date: 05/18/22 Room / Location: [place] [address] / [facility] in [place], [place] Anesthesia Start: 1214 Anesthesia Stop: 1415 [...] ETT location: oral VL device: glide scope [place] scope blade size: 3 Adult tube size: [...] diagnosis: Loose left total shoulder arthroplasty. Location: [place] [address] / [facility] in [place], [place] Providers: Cyrus Polk M.D. 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 The use of blood products not discussed [...] procedure ar e in the results section. OR US GUIDE PLC NDL Routine 05/18/2022 11:24 Resu lts for this AM CDT procedure are i n the results section. OR INJ ANES BRACHIAL Routine 05/18/2022 11:24 Res ults for this PLEX W GUIDANCE AM CDT procedure ar e in the [...] ETT location: oral VL device: glide scope [place] scope blade size: 3 Adult tube size: [...] ?? Airway event: no complications Kaushik Carlos, ChBrittonBBritton ANESTHESIA ORDERABLES OR INJ ANES BRACHIAL PLEX W GUIDANCE, OR US GUIDE PLC NDL, MC ANE NERVE BLOCK WITH ULTRASOUND (05/18/2022 11:24 AM CDT) Narrative Jonah Mendez M.D. - 05/18/2022 [...] documented as of this encounter Care Teams Fur Floor Worker Relationship Specialty Start Date End Date Elsewhere, Pcp PCP - General Family Medicine 12/25/21 documented as of this encounter
--- OUTSIDE RECORDS SUMMARY | 2022-11-06 15:27 | XMS_ITS | Encounter Summary ---
:1965 Author Organization [facility] Address [address] [place] [address] Care Team Providers Name Role Phone Elsewhere, Pcp Primary Care Provider Unavailable Encounter Details Date Type Department Care Team Description 05/18/2022 Surgery RST SEBAS MORAN OR Cyrus Polk, ARTHROPLASTY REPLACEMENT [address] [facility] [place] [address] [address] [facility] [phone] [place] [address] Social History Tobacco Use Types Packs/Day Years [...] you attend religion or Patient refused 2021 methodist services? Do [...] or the highest technical, or vocational p Vivartesram degree you have received? Sex Assigned at [...] AM CDT DISCHARGE SUMMARY BRIEF OVERVIEW Hospital: [facility] Discharge Provider: Cyrus Polk M.D. Primary Team: [...] ROEI OR DISCHARGE DISPOSITION Home-Health Care [facility] [6] ACTIVE ISSUES REQUIRING FOLLOW UP This document serves as a prescription to continue physical therapy, medications, and labs or x-raysif ordered/required. If you have any questions or concerns about surgery or upcoming appointments, please do not hesitateto contact Dr. Polk's office at [phone] during regular business hours (8am-5pm M-F). For emergencies on the weekend or after hours, you may contact Dr. Polk's service via the [facility] green chain operator at [phone]. Details for your 6 week follow-up appointment [...] to: Cyrus Polk MD Dept of Orthopedics [address], [address] None OUTPATIENT FOLLOW UP For appointment details [...] Cyrus Polk M.D.Jenna Zaldivar M.D.Kaushik Cadena M.D. [facility] Angie Mosquera was taken to the [...] THC multivit-min/iron/folic/ Take 1 tablet by 0 [id number] (HAIR, SKIN AND mouth daily. NAILS ADVANCED [...] mask during therapy session: yes Outcome Measures [facility] Inpatient Short Form: -[facility] Basic Mobility (V.2) How much help [...] 3-5 steps with a railing?: A Little AM-[facility] Basic Mobility (V.2) Raw Score: 18 AM-[facility] Basic Mobility (V.2) Standardized Score: 41.05 [...] Time (min): 27 min Jey Harper P.T., Juiec.P.TBritton Kaushik Cadena M.D. - 05/20/2022 7:31 AM [...] 6 pm, please page Jam service at [phone] For urgent matters from 6 pm until 6 am, please page Ortho House at [facility] [phone] Jane Nguyen Pharm.D., R.Ph. - 05/19/2022 8:12 [...] at this time. Jane Nguyen Pharm.D., R.Ph. [phone] Kaushik Cadena M.D. - 05/19/2022 7:34 AM [...] 6 pm, please page Jam service at [phone] For urgent matters from 6 pm until 6 am, please page Ortho [place] at [facility] [phone] aco Dao - 05/18/2022 9:47 AM CDT Encounter: AM Admit Deanna Tradition: No methodist affiliation. Ms. Mosquera did not express any spiritual needs at this time. Plan: Will remain available for spiritual care as needed or requested. Chaplains can be contacted bypaging [phone] ([facility]). Rodrigo Preston, Pharm.D., R.Ph. - 05/18/2022 [...] Take 150 mg by mouth every morning. sushcmkeox-jtonixcizpeik-oxhw (ESGIC) 50-325-40 mg per tablet Past Week [...] 1 spray as needed. 5 mg THC multivit-min/iron/folic/nrl539 (HAIR, SKIN AND NAILS ADVANCED ORAL) Past [...] (HCC) ??? Nicotine Dependence Unspecified ??? 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 Direct Infection Of [...] Profile Lives With: Alone Receives Help From: retort condenser attendant, Family, Friend(s) ADL Assistance: Required assistance ADL Assistance Comments: Gets help from TERMINAL MAKEUP OPERATOR for her bath/shower 3x/week, and for her meals IADL/Homemaking Assistance: Required assistance IADL/Homemaking Assistance Comments: Gets help for housecleaning Driving: Does not drive Driving Comments: takes her cane and medical alert with her. Occupational Role: On disability Occupational Role Comments: Previously worked at a [employer] and [employer] Prior Mobility/Functional Transfers Level of [place]: Needs assistance Previous Transfer/Mobility Assistance Comments: Patient [...] mask during therapy session: yes Outcome Measures AM-[facility] Inpatient Short Form: AM-[facility] Basic Mobility (V.2) How much help [...] 3-5 steps with a railing?: A Little AM-[facility] Basic Mobility (V.2) Raw Score: 18 -[facility] Basic Mobility (V.2) Standardized Score: 41.05 Interpretation: Clinicians answer the -[facility] Inpatient Short Form based on observed [...] Nurse Referral Reason: Discharge Planning Primary Language: Estonian Dobby Loom Chain Pegger Services Used: No Person(s) present during interview: Person(s) Present During Interview: patient History of Present Illness #1 Primary Osteoarthritis Shoulder Left Social History Support System: children, caser up/social human services assistants, friends/neighbors and home care staff Patient's Home [...] Calm, Oriented Communication: Talks, Understands speaking, Understands Estonian Shopping: Needs assistance Transportation: Support from family Medication Management: Needs assistance Housekeeping: Needs assistance Meal Prep: Needs assistance Managing Finances: Independent Assistive Devices: Grab bars - wall, Eyeglasses Services/Resources: Other (comment) Agency Name: [facility] Provided: TERMINAL MAKEUP OPERATOR services 3x/week, nurse visits every other week Baseline Services/Resources Primary care clinic and provider: [facility] Phone: Fax: Anticipated Needs Functional Status: Transfer to/from bed, chair, etc., Bathing, Dressing, Grooming/hygeine, Housekeeping, Shopping, Meal preparation, Mobility, Medication set-up/administration, Transportation use (drive car, use taxi/bus) Services/Resources: Other (comment) Agency Name: [facility] Provided: TERMINAL MAKEUP OPERATOR services 3x/week, nurse visits every other week Transportation Needs: Support from family Does the patient need discharge transport arranged?: No Ride and Caregiver Arranged: Yes Anticipated Discharge Destination: Home-Health Care [facility] ASSESSMENT / PLAN Assessment: The home health care worker met with Angie Mosquera to discuss her current hospitalization and home goingneeds. The patient was unaccompanied. The patient was a reliable historian. The role of home health care worker was reviewed. The patient reviewed her prior level of care and support system. The patient receives support from her son, friends and home care staff. Patient reported her son lives in the same apartment as her. She also stated getting TERMINAL MAKEUP OPERATOR services 3x/week and a nurse visits her every other week. The patient described her living environment as a two bedroom apartment. Housekeeping, grocery shopping, meal prep, and other household responsibilities have previously been completed by patient, patient's son and patient's caregiver(s). home health care worker discussed the patient's potential needs at plunkett [...] identified the following as their current vendor(s): [facility]. During this visit patient verbalized she is hoping to increase her TERMINAL MAKEUP OPERATOR hours and also inq uired about getting a scooter to assist in her mobility. Patient went on to share she is unstable attimes due to her stroke history. She thought perhaps her neurology doctor would be able to help her get a scooter. RADHA DONAHUE recommended she follow up with the [facility] in regards to wanting more TERMINAL MAKEUP OPERATOR hours. She was also recommended to follow up with her primary care provider to provide durable medical equipment justification for a scooter, as she is currently hospitalized for orthopedic surgery. Patient verbalized understanding. Patient informed RADHA DONAHUE would be reconnecting her TERMINAL MAKEUP OPERATOR services and nurse visits with [facility]. Patient agreeable to RN ROWAN completing this and even provided RN CM the name and contact of her TERMINAL MAKEUP OPERATOR and RN. After reviewing the patient's chart and meeting with the patient, the home health care worker deemed the LACE+/readmission questions were not necessary. The patient reports understanding that she will dismiss from the hospital when medically stable. Pending hospital course and medical readiness, no barriers to dismissal have been identified at this time. Plan: Patient to discharge with home health care. [facility] Contact: RADHA Palomino ATTN: Georgette NURSING: - [...] directive. PRIMARY SERVICE: - Please provide a non-[place] home health order for resumption of previous [...] dismissal will be provided by family. 3. home health care worker recommended reaching out to family, friends, and neighbors for assistance. 4. home health care worker provided information regarding the dismissal process. 5. home health care worker placed or requested the following hospital-based consult orders and/or referrals:None. 6. home health care worker will continue to assess for homegoing needs with the interdisciplinary team. 7. home health care worker encouraged the patient to reach out [...] and intact. Patient has baseline numb/tingling, moderate warehouse administrative assistant, skin pink and warm with +2 pulses. Patient expects RN from [facility] to visit on Tuesday, May 24. Patient's friend will transport home. Medications including: oxycodone and tramadol were picked up [facility]. documented in this encounter OR Notes Op Note - Cyrus Polk M.D. - 05/18/2022 5:54 PM CDT STAFF: Cyrus Polk M.D. RESIDENT: Jenna Zaldivar M.D. PRE-OPERATIVE DIAGNOSIS Left dislocated reverse arthroplasty. POST-OPERATIVE DIAGNOSIS Left dislocated reverse arthroplasty. A first aid instructor actively participated and was necessary for [...] glenosphere, placement new humeral stem and tray, [id number] Cyrus Plok M.D. CT CT Job ID: [id number] documented in this encounter Miscellaneous Notes Hospital Course - Kaushik Cadena M.D. - 05/19/2022 12:18 PM CDT Surgery Information This Encounter Past Procedures (05/19/2021 to Today) Date Procedures Providers Location 05/18/2022 ARTHROPLASTY REPLACEMENT TOTAL SHOULDER. Cyrus Polk M.D.Wasserburger, Jory N, M.D.Markos, James R, M.D. [facility] OR Angie Mosquera was taken to the [...] with Differential, Blood (05/20/2022 3:43 AM CDT) [facility] Method Time Signature Hemoglobin 8.4 (L) [...] [facility] - [address] [place], [place] [address] [facility] [place] [address] [facility] [address] [facility] (ABNORMAL) CBC with Differential, Blood (05/19/2022 3:26 AM CDT) [facility] Method Time Signature Hemoglobin 7.6 (L) [...] [facility] - [address] [place], [place] [address] [facility] [place] [address] [facility] [address] (ABNORMAL) Basic Metabolic Panel [...] [facility] [address] [place], [place] [address] [facility] [place] [address] [facility] [address] [...] postoperative purposes. Jenna NIELSON DIAGNOSTIC IMAGING PROCE [facility] Surgical Pathology, Frozen Lab (05/18/2022 1:04 PM CDT) Component Value Ref Test Analysis Performed At [facility] Method Time Signature 05/20/2022 [...] [facility] - [address] [place], [place] [address] [facility] [place] [address] [facility] [address] Bacteria Cult, Aerobe / Anaerobe+Susc (05/18/2022 1:03 PM CDT) [facility] gist Method Time Signature Bacteria Cult, No growth 06/01/2022 DTL Aerobe/Anaerob after 14 6:02 PM CDT e+Susc days of incubation. Specimen Anatomical Collection Method Collection Time Receive d Time (Source) Location / / Volume Laterality Shoulder, Left 05/18/2022 1:03 PM 022 5:21 CDT PM CDT Comment: Specimen Source Site: Tissue #[address] [facility] - 06/01/2022 6:02 PM CDT Bacterial Culture: Placed in Bactec aero bic and Bactec anaerobic bottles Cyrus Polk M.D. LAB MICROBIOLOGY - GENERAL O RDERABLES Performing Organization Address City/[facility]/ZIP [facility] Phon e Number [facility] - [address] [place], [place] [address] [facility] [place] [address] [facility] [address] [facility] Bacteria Cult, Aerobe / Anaerobe+Susc (05/18/2022 1:03 PM CDT) [facility] Method Time Signature Bacteria Cult, No growth 06/01/2022 DTL Aerobe/Anaerob after 14 6:02 PM CDT e+Susc days of incubation. Specimen Anatomical Collection Method Collection Time Receive d Time (Source) Location / / Volume Laterality Shoulder, Left 05/18/2022 1:03 PM 022 5:12 CDT PM CDT Comment: Specimen Source Site: Tissue #3 Narrative [facility] - 06/01/2022 6:02 PM CDT Bacterial Culture: Placed in Bactec aero bic and Bactec anaerobic bottles Cyrus Polk M.D. LAB MICROBIOLOGY - GENERAL O RDERABLES Performing Organization Address City/[facility]/ZIP Code Phon e Number [facility] - [address] [place], [place] [address] [place] [address] [facility] [address] [facility] Bacteria Cult, Aerobe / Anaerobe+Susc (05/18/2022 1:03 PM CDT) [facility] Method Time Signature Bacteria Cult, No growth 06/01/2022 DTL Aerobe/Anaerob after 14 6:02 PM CDT e+Susc days of incubation. Specimen Anatomical Collection Method Collection Time Receive d Time (Source) Location / / Volume Laterality Shoulder, Left 05/18/2022 1:03 PM 022 5:07 CDT PM CDT Comment: Specimen Source Site: Tissue #2 Narrative [facility] - 06/01/2022 6:02 PM CDT Bacterial Culture: Placed in Bactec aero bic and Bactec anaerobic bottles Cyrus Polk M.D. LAB MICROBIOLOGY - GENERAL O RDERABLES Performing Organization Address City/[facility]/ZIP Code Phon e Number [facility] - [address] [place], [place] [address] [facility] [place] [address] [facility] [address] documented in this [...] 05/19/2022 05/20/2022 acetaminophen tablet 1,000 mg (TYLENOL) 3653 (Given - Provider: Corrie Toscano RBrittonN.)1541 (Given - Provider: Catalina Mccloud RBrittonN.) 0511 (Given - Provider: Catalina Mccloud R.N.)1153 (Given - Provider: Isaura Vu R.N.)1725 (Given - Provider: Jonny ThorneSBrittonN., R.N., O.C.N.) 0125 (Given - Provider: Jonny PérezSBrittonNBritton, R.N.)0552 (Given - Provider: Jere Levy R.N.)1206 [...] Bettie Macias RBetsy) 222 (Given - Provider: Jonny ThorneS.N., R. N., O.C.N.) 80 mg, oral, Daily [...] 1240 (Given - Provider: Ihsan Townsend APRN, LICENSED LOAN OFFICER ASSISTANT) 2,000 mg (rounded from 1,652.5 mg = [...] ThorneSBrittonN., R.N., O.C.N. - Comment: pt request) 0907 (Given - Provider: Isaura Vu R.N.) 600 mg, oral, 2 times daily, First dose (after last modification) on Tue05/19/22 at 0900 QUEtiapine tablet 50 mg (SEROquel) 2051 (Given - Provi marquis: Bettie Macias R.N.) 2225 (Given - Provider: Candace guerra M.S.N., R.N., O.C.N. - Comment: pt request) 50 mg, oral, Daily at bedtime, First dose on Tue05/18/22 at 2100 rOPINIRole tablet 2 mg (REQUIP) 2050 (Given - Provider: Pravin De La Rosa R.N.) 222 (Given - Provider: Jonny ThorneSBrittonN., R.N., O.C.N. [...] 1240 (Given - Provider: Ihsan Townsend APRN, LICENSED LOAN OFFICER ASSISTANT) 1,000 mg (1 g), intravenous, at 300 [...] Provider: Catalina Mccloud RRebekah.)2233 (Given - Provider: Leticia Thorne, R.N., O.C.N.) 100 mg, oral, 3 times [...] Mccloud R.N.) 0339 (Given - Provider: Catalina Mccloud, R.N.)0742 (Given - Provider: Catalina Mccloud R.N.)1153 [...] 123 (See Alternative - Provider: Jonny PérezS.NBritton, R.NBritton)0552 (See Alternative - Provider: Jere Levy R.N.)1004 [...] Melissa Garcia R.N.) 123 (Given - Provider: Leticia Pérez, R.NBritton)0552 (Given - Provider: Jere Levy R.N.)1004 (Given [...] over 3 days 1 patch (TRANSDERM S COLOR CHECKER ROVING OR YARN) (CANCELED) 1118 (Medication Applied - Provider: Cristy [...] documented as of this encounter Care Teams Flour Tester Relationship Specialty Start Date End Date Elsewhere, Pcp PCP - General Family Medicine 12/25/21 documented as of this encounter
--- OUTSIDE RECORDS SUMMARY | 2022-11-06 15:27 | XMS_ITS | Encounter Summary ---
:1965 Author Organization [facility] Address [address] [place] [address] Care Team Providers Name Role Phone Elsewhere, Pcp Primary Care Provider Unavailable Encounter Details Date Type Department Care Team Description 06/15/2022 Ancillary Procedure Department of Demarcus Ernst, Radiology in [place], [place] [address] [place] [phone] (Wo rk) Social History Tobacco Use Types [...] you attend mormonism or Patient refused 2021 episcopalian services? Do [...] Modality Spine, Neuroradiology RST LOS, Neuroradiology [facility], N/A Computed Tomography Neuroradiology FLA LOS, [...] as of this encounter Care Teams Die Reamer Relationship Specialty Start Date End Date Elsewhere, Pcp PCP - General Family Medicine 12/25/21 documented as of this encounter
--- OUTSIDE RECORDS SUMMARY | 2022-11-06 15:28 | XMS_ITS | Encounter Summary ---
:1965 Author Organization [facility] Address [address] [place] [address] Care Team Providers Name Role Phone Elsewhere, Pcp Primary Care Provider Unavailable Reason for Referral Outpatient (Routine) - Closed Specialty Diagnoses / Procedures Referred By Contact Refer red To Contact Diagnoses Arthroplasty Total Shoulder Replacement Status Post Left Alfredo Herrera O.P.A[facility] Procedures DX Shoulder Left Ingrowth Series 5 Views [address] [place] [phone] Referral ID Status Reason Start Date Expiration Date Visits Requ ested Visits Authorized [id number] Closed 02/25/2022 02/25/2023 1 1 Reason for Visit Outpatient (Routine) - Closed Specialty Diagnoses / Procedures Referred By Contact Refer red To Contact Diagnoses Arthroplasty Total Shoulder Replacement Status Post Left Alfredo Herrera O.P.A.-[facility]. [facility] Procedures DX Shoulder Left Ingrowth Series 5 Views [address] [place] [phone] Referral ID Status Reason Start Date Expiration Date Visits Requ ested Visits Authorized [id number] Closed 02/25/2022 02/25/2023 1 1 Encounter Details Date Type Department Care Team Description 04/02/2022 Hospital Encounter Department of Alfredo Herrera Total Radiology, Anh Gonzales Shoulder Replacement [facility], in [address] [place] [address] Status Post Left [employer] [phone] [place], [place] (Work) [address] [phone] Social History Tobacco Use Types Packs/Day Years [...] you attend caodaism or Patient refused 2021 islam services? Do [...] THC multivit-min/iron/folic/ Take 1 tablet by 0 [id number] (HAIR, SKIN AND mouth daily. NAILS ADVANCED [...] documented as of this encounter Care Teams Wedding Cake Designer Relationship Specialty Start Date End Date Elsewhere, Pcp PCP - General Family Medicine 12/25/21 documented as of this encounter
--- OUTSIDE RECORDS SUMMARY | 2022-11-06 15:28 | XMS_ITS | Encounter Summary ---
:1965 Author Organization [facility] Address [address] [place] [address] Care Team Providers Name Role Phone Elsewhere, Pcp Primary Care Provider Unavailable Reason for Visit Reason Comments Pre-visit Intake Encounter Details Date Type Department Care Team Description 05/12/2022 Clinical Communication Department of Cyrus Polk e-visit Intake Orthopedic Surgery Lilian Souza in [place], [address] [place] [address] [place] [address] [place], [place] [phone] [phone] (Work) [phone] Social History Tobacco Use Types Packs/Day Years [...] you attend yazidi or Patient refused 2021 taoism services? Do [...] as of this encounter Care Teams Therapy Teacher Relationship Specialty Start Date End Date Elsewhere, Pcp PCP - General Family Medicine 12/25/21 documented as of this encounter
--- OUTSIDE RECORDS SUMMARY | 2022-11-06 15:28 | XMS_ITS | Encounter Summary ---
:1965 Author Organization [facility] Address [address] [place] [address] Care Team Providers Name Role Phone Elsewhere, Pcp Primary Care Provider Unavailable Reason for Referral Outpatient (Routine) - Closed Specialty Diagnoses / Procedures Referred By Contact Refer red To Contact Diagnoses Painful Total Joint Arthroplasty Initial (HCC) Alfredo Herrera [facility] Procedures ORS US-Guided aspiration/injection O.P.A.-[facility]. [address] [place], [place] [address] Referral ID Status Reason Start Date Expiration Date Visits Requ ested Visits Authorized [id number] Closed 04/02/2022 04/02/2023 1 1 MRI/CAT/PET Scan (Routine) - Closed Specialty Diagnoses / Procedures Referred By Contact Refer red To Contact Radiology Diagnoses Painful Total Joint Arthroplasty Initial (HCC) Alfredo Herrera [facility] Procedures CT Shoulder Left without IV Contrast O.P.A.-C. [address] [place], [place] [phone] Referral ID Status Reason Start Date Expiration Date Visits Requ ested Visits Authorized [id number] Closed 04/02/2022 04/02/2023 1 1 Reason for Visit Outpatient (Routine) - Closed Specialty Diagnoses / Procedures Referred By Contact Refer red To Contact Orthopedic Surgery Diagnoses Arthroplasty Total Shoulder Replacement Status [facility] [address] [place] [address] Referral ID Status Reason Start Date Expiration Date Visits Requ ested Visits Authorized [id number] Closed 02/25/2022 02/25/2023 1 1 Encounter Details Date Type Department Care Team Description 04/02/2022 Office Visit Department of Cyrus Polk Arthroplasty Total Shoulder Replacement Status Post Left; Orthopedic Surgery in Lilian Souza Painful Total Joint Arthroplasty Initial (HCC) [place], [place] [address] [facility] [address] [place] [phone] Social History Tobacco Use Types Packs/Day [...] you attend worship or Patient refused 2021 faith services? Do [...] Cyrus Polk M.D. CT CT Job ID: [id number] documented in this encounter Plan of Treatment [...] Address City/State/ZIP Code Phon e Number [facility] - [address] [place] [address] [facility] [place] [address] [facility] 200 [facility] (ABNORMAL) CBC without Differential (04/14/2022 10:42 AM CDT) [facility] gist Method Time Signature Hemoglobin 8.6 (L) [...] Address City/State/ZIP Code Phon e Number [facility] - [address] [place], [place] [address] [facility] [place] [address] [facility] [address] [place] ARTH[place] ASP/INJ MJR JT W US [...] as of this encounter Care Teams Student Activities Director Relationship Specialty Start Date End Date Elsewhere, Pcp PCP - General Family Medicine 12/25/21 documented as of this encounter
--- OUTSIDE RECORDS SUMMARY | 2022-11-06 15:28 | XMS_ITS | Encounter Summary ---
:1965 Author Organization [facility] Address [address] [place] [address] Care Team Providers Name Role Phone Elsewhere, Pcp Primary Care Provider Unavailable Encounter Details Date Type Department Care Team Description 03/19/2022 Clinical Communication Department of Cyrus Polk Orthopedic Surgery in Lilian Souza [place], [place] 200 [facility] 200 [place] [phone] Social History Tobacco Use Types Packs/Day Years [...] attend jehovah's witness or Patient refused 2021 sabianist services? Do [...] Have discussed this situation with the O.R. form building supervisor, the A.M. admission Event Promotions Coordinator, and the Outpatient Event Promotions Coordinator and no one can locate this remote [...] Please return a call to her at [phone] documented in this encounter Plan of Treatment Not on filedocumented as of this encounter Visit Diagnoses Not on filedocumented in this encounter Additional Health Concerns Assessment Noted Time PHQ-9 Depression Total Score: 16 02/11/2021 12:00 AM C DT documented as of this encounter Care Teams Environmental Technical Officer Relationship Specialty Start Date End Date Elsewhere, Pcp PCP - General Family Medicine 12/25/21 documented as of this encounter
--- OUTSIDE RECORDS SUMMARY | 2022-11-06 15:28 | XMS_ITS | Encounter Summary ---
:1965 Author Organization [facility] Address [address] [place] [address] Care Team Providers Name Role Phone Elsewhere, Pcp Primary Care Provider Unavailable Encounter Details Date Type Department Care Team Description 05/03/2022 Hospital Encounter Department of Laboratory Shauna Rubin, Anemia Medicine and Pathology, WRITING CENTER DIRECTOR CBrittonNCristianaFormerly [facility] in [place], [place] [address] [place] [address] 200 [place] [phone] (Wo rk) Social History Tobacco Use Types [...] attend roman catholic or Patient refused 2021 holiness services? Do [...] THC multivit-min/iron/folic/ Take 1 tablet by 0 [id number] (HAIR, SKIN AND mouth daily. NAILS ADVANCED [...] 11:47 AM CDT Specimen Information: Specimen ID: [id number] Specimen Type: Blood Specimen Collection Start Date: 10:11 AM Specimen Received Date: 05/03/2022 10:53 AM Specimen ID: [id number] Specimen Type: Blood Specimen Collection Start Date: 2 10:11 AM Specimen Received Date: 05/03/2022 10:53 AM Specimen ID: [id number] Specimen Type: Blood Specimen Collection Start Date: 2 10:11 AM Specimen Received Date: 05/03/2022 10:53 AM Specimen ID: [id number] Specimen Type: Blood Specimen Collection Start Date: 2 10:11 AM Specimen Received Date: 05/03/2022 10:32 AM Specimen ID: [id number] Specimen Type: Blood Specimen Collection Start Date: 10:11 AM Specimen Received Date: 05/03/2022 11:44 AM Shauna Rubin APRN, C.N.P., M.S.N. LAB BLOOD ADD-ON Performing Organization Address City/State/ZIP Code Phon e Number [facility] - [address] [place], [place] [address] [facility] [place] [address] Laboratories-[facility] [address] documented in this encounter Visit Diagnoses Diagnosis Anemia documented in this encounter Additional Health Concerns Assessment Noted Time PHQ-9 Depression Total Score: 16 02/11/2021 12:00 AM C DT documented as of this encounter Care Teams Graphic Art Designer Relationship Specialty Start Date End Date Elsewhere, Pcp PCP - General Family Medicine 12/25/21 documented as of this encounter
--- OUTSIDE RECORDS SUMMARY | 2022-11-06 15:28 | XMS_ITS | Encounter Summary ---
:1965 Author Organization [facility] Address [address] [place] [address] Care Team Providers Name Role Phone Elsewhere, Pcp Primary Care Provider Unavailable Reason for Referral Outpatient (Routine) - Closed Specialty Diagnoses / Procedures Referred By Contact Refer red To Contact Anesthesiology Diagnoses Anemia [facility] C.N.PBritton, M.S.N. [address] [place] [phone] Referral ID Status Reason Start Date Expiration Date Visits Requ ested Visits Authorized [id number] Closed 04/22/2022 04/22/2023 1 1 Encounter Details Date Type Department Care Team Description 04/22/2022 Orders Only Preoperative Evaluation Shauna Rubin (Primary Dx) Center in [facility] NIKKY Diaz C[place], [place] M.S.N. [address] [place] [address] [place] [phone] [place], [place] [phone] Social History Tobacco Use Types Packs/Day Years [...] you attend hoahaoism or Patient refused 2021 oriental orthodox services? [...] 05/03/2022 Venous) AM CDT 10:53 AM CDT [facility] - 05/03/2022 11:47 AM CDT Specimen Information: Specimen ID: [id number] Specimen Type: Blood Specimen Collection Start Date: 10:11 AM Specimen Received Date: 05/03/2022 10:53 AM Specimen ID: [id number] Specimen Type: Blood Specimen Collection Start Date: 10:11 AM Specimen Received Date: 05/03/2022 10:53 AM Specimen ID: [id number] Specimen Type: Blood Specimen Collection Start Date: 10:11 AM Specimen Received Date: 05/03/2022 10:53 AM Specimen ID: [id number] Specimen Type: Blood Specimen Collection Start Date: 10:11 AM Specimen Received Date: 05/03/2022 10:32 AM Specimen ID: [id number] Specimen Type: Blood Specimen Collection Start Date: 2 10:11 AM Specimen Received Date: 05/03/2022 11:44 AM Shauna Rubin APRN CBrittonNBetty., M.S.N. LAB BLOOD ADD-ON Performing Organization Address City/State/ZIP Code Phon e Number [facility] - [address] [place], [place] [address] [place] [address] Laboratories-[facility] [address] documented in this encounter Visit Diagnoses Diagnosis Anemia - Primary Anemia documented in this encounter Additional Health Concerns Assessment Noted Time PHQ-9 Depression Total Score: 16 02/11/2021 12:00 AM C DT documented as of this encounter Care Teams Cigar Bander Relationship Specialty Start Date End Date Elsewhere, Pcp PCP - General Family Medicine 12/25/21 documented as of this encounter
--- OUTSIDE RECORDS SUMMARY | 2022-11-06 15:28 | XMS_ITS | Encounter Summary ---
:1965 Author Organization [facility] Address [address] [place] [address] Care Team Providers Name Role Phone Elsewhere, Pcp Primary Care Provider Unavailable Reason for Visit Outpatient (Routine) - Closed Specialty Diagnoses / Procedures Referred By Contact Refer red To Contact Orthopedic Surgery Diagnoses Pain Shoulder Left Preoperative Exam Alfredo Herrera, [facility] O.P.A.-C. [address] [place] [address] Referral ID Status Reason Start Date Expiration Date Visits Requ ested Visits Authorized [id number] Closed 04/22/2022 04/22/2023 1 1 Encounter Details Date Type Department Care Team Description 05/17/2022 Office Visit Department of Cyrus Polk, Pain Shou lder Left; Orthopedic Surgery in M.D. Preoperative Exam [place], [place] [address] [place] [address] [address] [place] [phone] Social History Tobacco Use Types Packs/Day Years [...] you attend yazidi or Patient refused 2021 cheondoism services? Do you belong to any clubs or No 05/17/2022 organizations such as yazidi groups, unions, [email or web address] or athletic groups, or school groups? How [...] may involve the use of a medical device engineer made by a [email or web address] I or one of my partners have collaborated to design, develop, or improve orthopedic implants, instruments, or products. Both the [facility] and the individual surgeons involved receive royalty payments from the use of those specific devices at other institutions, but no royalties or any other payments are paid for the use of those devices with any [facility] patient. The clinical rationale for the use of those devices as well as the availability and applicability of alternative devices was reviewed. He understands that the final decision for the use of a specific medical device engineer often is made at the time of [...] documented as of this encounter Care Teams Crane Chaser Relationship Specialty Start Date End Date Elsewhere, Pcp PCP - General Family Medicine 12/25/21 documented as of this encounter
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
--- OUTSIDE RECORDS SUMMARY | 2022-11-06 15:28 | XMS_ITS | Encounter Summary ---
:1965 Author Organization [facility] Address [address] [place] [address] Care Team Providers Name Role Phone Elsewhere, Pcp Primary Care Provider Unavailable Encounter Details Date Type Department Care Team Description 05/11/2022 Clinical Communication Department of Cyrus Polk Orthopedic Surgery in Lilian Souza [place], [place] 200 [facility] [address] [place] [phone] Social History Tobacco Use Types Packs/Day Years [...] attend jehovah's witness or Patient refused 2021 lutheran services? Do [...] as of this encounter Care Teams Utilities Operator Relationship Specialty Start Date End Date Elsewhere, Pcp PCP - General Family Medicine 12/25/21 documented as of this encounter
--- OUTSIDE RECORDS SUMMARY | 2022-11-06 15:28 | XMS_ITS | Encounter Summary ---
:1965 Author Organization [facility] Address [address] [place] [address] Care Team Providers Name Role Phone Elsewhere, Pcp Primary Care Provider Unavailable Encounter Details Date Type Department Care Team Description 03/12/2022 Orders Only Department of Melissa Mcdonald, Arthroplas ty Total Orthopedic Surgery in M.D. Should er Replacement [place], [place] Status Post Left [address] [facility] (Primary Dx) [place] [address] Social History Tobacco Use Types [...] you attend christianity or Patient refused 2021 mandaen services? Do [...] documented as of this encounter Care Teams Drywall Application Supervisor Relationship Specialty Start Date End Date Elsewhere, Pcp PCP - General Family Medicine 12/25/21 documented as of this encounter
--- OUTSIDE RECORDS SUMMARY | 2022-11-06 15:28 | XMS_ITS | Encounter Summary ---
:1965 Author Organization [facility] Address [address] [place] [address] Care Team Providers Name Role Phone Elsewhere, Pcp Primary Care Provider Unavailable Reason for Referral MRI/CAT/PET Scan (Routine) - Closed Specialty Diagnoses / Procedures Referred By Contact Refer red To Contact Radiology Diagnoses Painful Total Joint Arthroplasty Initial ([facility]) Alfredo Herrera [place] Procedures CT Shoulder Left without IV Contrast O.P.A.-C. [address] [place] [phone] Referral ID Status Reason Start Date Expiration Date Visits Requ ested Visits Authorized [id number] Closed 04/02/2022 04/02/2023 1 1 Reason for Visit MRI/CAT/PET Scan (Routine) - Closed Specialty Diagnoses / Procedures Referred By Contact Refer red To Contact Radiology Diagnoses Painful Total Joint Arthroplasty Initial ([facility]) Alfredo Herrera [place] Procedures CT Shoulder Left without IV Contrast O.P.A.-C. [address] [place] [phone] Referral ID Status Reason Start Date Expiration Date Visits Requ ested Visits Authorized [id number] Closed 04/02/2022 04/02/2023 1 1 Encounter Details Date Type Department Care Team Description 04/14/2022 Hospital Encounter Department of Alfredo Herrera Painful Total Joint Radiology, Emily HillA.-CBritton Arthroplasty Initial Building, in [address] [place] [address] ([facility]) [facility] [address] 200 [facility] [phone] [place], [place] (Work) [address] [phone] Social History Tobacco Use Types Packs/Day Years [...] you attend amish or Patient refused 2021 christianity services? Do [...] THC multivit-min/iron/folic/ Take 1 tablet by 0 [id number] (HAIR, SKIN AND mouth daily. NAILS ADVANCED [...] documented as of this encounter Care Teams Historian Research Assistant Relationship Specialty Start Date End Date Elsewhere, Pcp PCP - General Family Medicine 12/25/21 documented as of this encounter
--- OUTSIDE RECORDS SUMMARY | 2022-11-06 15:28 | XMS_ITS | Encounter Summary ---
:1965 Author Organization [facility] Address [address] [place] [address] Care Team Providers Name Role Phone Elsewhere, Pcp Primary Care Provider Unavailable Encounter Details Date Type Department Care Team Description 03/16/2022 Clinical Communication Department of Cyrus Polk Orthopedic Surgery in Lilian Souza [place], [place] 200 [facility] 200 [place] [phone] [phone] Social History Tobacco Use Types Packs/Day Years [...] you attend hinduism or Patient refused 2021 oriental orthodox services? [...] - 03/16/2022 12:15 PM CDT Michael, patient's human services case manager from [facility], is calling hoping to speak to someone on Dr. Polk's surgical team to ensure that the patient is receiving the correct post-op care. Patient is set up for post op appointments at the beginning of March here. However, Michael is looking to speak to someone over the phone to ensure the patient is on the right track. Please call [phone]. Thank you. documented in this encounter Plan of Treatment Not on filedocumented as of this encounter Visit Diagnoses Not on filedocumented in this encounter Additional Health Concerns Assessment Noted Time PHQ-9 Depression Total Score: 16 02/11/2021 12:00 AM C DT documented as of this encounter Care Teams Assistant Store Manager Trainee Relationship Specialty Start Date End Date Elsewhere, Pcp PCP - General Family Medicine 12/25/21 documented as of this encounter
--- OUTSIDE RECORDS SUMMARY | 2022-11-06 15:28 | XMS_ITS | Encounter Summary ---
:1965 Author Organization [facility] Address [address] [place] [address] Care Team Providers Name Role Phone Elsewhere, Pcp Primary Care Provider Unavailable Reason for Visit Outpatient (Routine) - Closed Specialty Diagnoses / Procedures Referred By Contact Refer red To Contact Diagnoses Painful Total Joint Arthroplasty Initial ([facility]) Alfredo Herrera [place] Procedures ORS US-Guided aspiration/injection O.P.A.-C. [address] [place] [phone] Referral ID Status Reason Start Date Expiration Date Visits Requ ested Visits Authorized [id number] Closed 04/02/2022 04/02/2023 1 1 Encounter Details Date Type Department Care Team Description 04/14/2022 Procedure visit Department of Jey Monzon Painful To beto Joint Orthopedic Surgery in Lilian Celaya Arthroplasty Initial [place], [place] [address] [place] [address] ([facility]) [address] [place] [address] [phone] Social History Tobacco Use Types Packs/Day Years [...] you attend sikh or Patient refused 2021 restorationist services? Do [...] was performed by Carmelo Guo M.D., M.S. ([phone]). HISTORY: The patient was recently evaluated for [...] and sterile ultrasound gel were used. Machine: Shoutitout Transducer: 6-15 MHz linear transducer. Patient position: [...] Mosquera Barriers to learning: None Preferred language: Uzbek Learning preferences include: Seeing and doing. Discussed: [...] preparation: chlorhexidine/alcohol Images have been archived in ChaCha: click the 'Dept Filter' button in ChaCha, then the 'Clear (ShowAll)' button, then OK. [...] procedure a re in the results section. [facility] ASP/INJ Routine 04/14/2022 9:30 AM Painful Total Aliza nt Results for this MJR JT W US CDT Arthroplasty Initial procedu re are in (HCC) the results section. documented in this encounter Results Bacteria Cult, Aerobe / Anaerobe+Susc (04/14/2022 9:35 AM CDT) Air Ion Devices Method Time Signature Bacteria Cult, No growth 04/28/2022 DTL Aerobe/Anaerob after 14 11:02 AM CDT e+Susc days of incubation. Specimen Anatomical Collection Method Collection Time Receive d Time (Source) Location / / Volume Laterality Synovial Fluid, 04/14/2022 9:35 AM 2021 Left Shoulder CDT 10:18 AM CDT Comment: Specimen Source Site: Aspirate Narrative [facility] - 04/28/2022 11:02 AM CDT Bacterial Culture: Received Bactec aerob ic and Bactec anaerobic bottles Alfredo Kamara LAB MICROBIOLOGY - GENERAL O RDERABLES Performing Organization Address City/State/ZIP Code Phon e Number [facility] - [facility] [address] [place], [place] [address] [facility] [place] [address] [facility] [address] [facility] Cell Count and Differential, Body Fluid (04/14/2022 9:35 AM CDT) Air Ion Devices Method Time Signature Fluid Type Right 04/14/2022 [...] Its performance characteri stics were determined by [facility] in a manner co nsistent [...] [facility] - [address] [place], [place] [address] [place] [address] Laboratories-[facility] [address] [facility] ASP/INJ MJR JT W US (04/14/2022 [...] as of this encounter Care Teams Coremaker Experimental Relationship Specialty Start Date End Date Elsewhere, Pcp PCP - General Family Medicine 12/25/21 documented as of this encounter
--- OUTSIDE RECORDS SUMMARY | 2022-11-06 15:28 | XMS_ITS | Encounter Summary ---
:1965 Author Organization [facility] Address [address] [place] [address] Care Team Providers Name Role Phone Elsewhere, Pcp Primary Care Provider Unavailable Reason for Visit Outpatient (Routine) - Closed Specialty Diagnoses / Procedures Referred By Contact Refer red To Contact Anesthesiology Diagnoses Anemia Shauna Rubin APRN, [facility] C.N.PBritton, M.S.N. [address] [place] [phone] Referral ID Status Reason Start Date Expiration Date Visits Requ ested Visits Authorized [id number] Closed 04/22/2022 04/22/2023 1 1 Encounter Details Date Type Department Care Team Description 05/03/2022 Comprehensive Visit Preoperative Evaluation Shauna Gomez APRN, C.N.P., M.S.N. [address] [place] [phone] Anemia Center in [facility] Peter Tse R.N. [address] [place] [phone] [place] [address] [place] [phone] Social History Tobacco Use Types Packs/Day [...] the highest technical, or vocational p [facility] degree you have received? Sex Assigned at [...] iron in the past when living in [place] (approximately 5-6 years ago). Therapy Plan: With the planned ARTHROPLASTY REPLACEMENT TOTAL SHOULDER on 05/18/2022 the patient would meet criteria based on the Preoperative Anemia Treatment Algorithm and RN Anemia Protocol to receive 1 x 1,000 mgdose of IV iron dextran. Patient agrees with this and would like this administered @ [facility]. I provided the patient with the education pamphlet [id number] Treating Anemia Before Surgery andanswered her questions [...] documented as of this encounter Care Teams Mailroom Courier Relationship Specialty Start Date End Date Elsewhere, Pcp PCP - General Family Medicine 12/25/21 documented as of this encounter
--- OUTSIDE RECORDS SUMMARY | 2022-11-06 15:28 | XMS_ITS | Encounter Summary ---
:1965 Author Organization [facility] Address [address] [place] [address] Care Team Providers Name Role Phone Elsewhere, Pcp Primary Care Provider Unavailable Encounter Details Date Type Department Care Team Description 04/21/2022 Clinical Communication Department of Cyrus Polk Orthopedic Surgery in Lilian Souza [place], [place] 200 [facility] 200 [place] [phone] [phone] Social History Tobacco Use Types Packs/Day Years [...] you attend alevism or Patient refused 2021 jain services? Do [...] something else is going on . Angie [phone] documented in this encounter Plan of Treatment [...]
--- OUTSIDE RECORDS SUMMARY | 2022-11-06 15:28 | XMS_ITS | Encounter Summary ---
:1965 Author Organization [facility] Address [address] [place] [address] Care Team Providers Name Role Phone Elsewhere, Pcp Primary Care Provider Unavailable Reason for Visit Reason Comments pre op orders Encounter Details Date Type Department Care Team Description 04/02/2022 Clinical Communication Department of Cryus Polk op orders Orthopedic Surgery in Lilian Souza [place], [place] 200 [facility] 200 [place] [address] [phone] Social History Tobacco Use Types Packs/Day Years [...] you attend advent or Patient refused 2021 jain services? Do [...] documented as of this encounter Care Teams Inverter And Clipper Relationship Specialty Start Date End Date Elsewhere, Pcp PCP - General Family Medicine 12/25/21 documented as of this encounter
--- OUTSIDE RECORDS SUMMARY | 2022-11-06 15:28 | XMS_ITS | Encounter Summary ---
:1965 Author Organization [facility] Address [address] [place] [address] Care Team Providers Name Role Phone Elsewhere, Pcp Primary Care Provider Unavailable Reason for Referral Outpatient (Routine) - Closed Specialty Diagnoses / Procedures Referred By Contact Refer red To Contact Social Work Diagnoses Pain Shoulder Left Preoperative Exam Jenna Zaldivar [place] M.D. Referral ID Status Reason Start Date Expiration Date Visits Requ ested Visits Authorized [id number] Closed 05/10/2022 05/10/2023 1 1 Reason for Visit Reason Comments Pre-visit Testing Orders Encounter Details Date Type Department Care Team Description 05/07/2022 Clinical Communication Department of Jam, Pre- visit Testing Orthopedic Surgery Cyrus Souza M.D. Orders in [place], [address] [place] [address] [place] [address] [place], [place] [phone] (Work) [phone] Social History Tobacco Use Types Packs/Day Years [...] you attend buddhism or Patient refused 2021 sikh services? Do you belong to any clubs or No 05/17/2022 organizations such as buddhism groups, unions, fraAustin-Tetra or athletic groups, or school groups? How [...] Name Type Priority Associated Diagnoses Order S [facility] Social Work - Outpatient Referral Routine [...] as of this encounter Care Teams Cattle Producers Relationship Specialty Start Date End Date Elsewhere, Pcp PCP - General Family Medicine 12/25/21 documented as of this encounter
--- OUTSIDE RECORDS SUMMARY | 2022-11-06 15:28 | XMS_ITS | Encounter Summary ---
:1965 Author Organization [facility] Address [address] [place] [address] Care Team Providers Name Role Phone Elsewhere, Pcp Primary Care Provider Unavailable Encounter Details Date Type Department Care Team Description 04/14/2022 Hospital Encounter Department of Alfredo Herrera Total Shoulder Replacement Status Post Left; Laboratory Medicine A, O.P.A.-C. Painful Total Joint Arthroplasty Initial (HCC) and Pathology, [address] [place] [address], in [facility] [address] [place] [phone] [place] [address] (Work) [place], [place] [phone] [address] (Fax) [phone] Social History Tobacco Use Types Packs/Day Years [...] you attend quaker or Patient refused 2021 lutheran services? Do [...] THC multivit-min/iron/folic/ Take 1 tablet by 0 [id number] (HAIR, SKIN AND mouth daily. NAILS ADVANCED [...] CDT Arthroplasty Initial proc edure are in (HCC) the results section. C-REACTIVE PROTEIN Routine 04/14/2022 [...] [facility] - [address] [place], [place] [address] [facility] [place] [address] [facility] [address] [facility] (ABNORMAL) CBC without Differential (04/14/2022 10:42 [...] [facility] - [address] [place], [place] [address] [facility] [place] [address] [facility] [address] documented in this encounter Visit Diagnoses Diagnosis Arthroplasty Total Shoulder Replacement Status Post Left Painful Total Joint Arthroplasty Initial (HCC) documented in this encounter Additional Health Concerns Assessment Noted Time PHQ-9 Depression Total Score: 16 02/11/2021 12:00 AM C DT documented as of this encounter Care Teams Social Work Faculty Member Relationship Specialty Start Date End Date Elsewhere, Pcp PCP - General Family Medicine 12/25/21 documented as of this encounter
--- OUTSIDE RECORDS SUMMARY | 2022-11-06 15:28 | XMS_ITS | Encounter Summary ---
:1965 Author Organization [facility] Address 200 [place] [address] Care Team Providers Name Role Phone Elsewhere, Pcp Primary Care Provider Unavailable Reason for Visit Reason Comments Discharge Planning Discharge Planning Encounter Details Date Type Department Care Team Description 05/06/2022 Clinical Communication Department of Kaushik Portillo Di scharge Planning Orthopedic Surgery R.N. (Discharge in [place] [address] [facility] Planning) [place], [place] 200 [facility] [address] [place], [place] [phone] [address] (Work) [phone] Social History Tobacco Use Types Packs/Day Years [...] you attend orthodoxy or Patient refused 2021 muslim services? Do [...] home. The role of the caregiver and milk wagon driver will be filled by the patient's [...] to her history of falling. I encourage Ortho.Ultrasound Applications Specialist to contact this patient, prior to surgery, [...] documented as of this encounter Care Teams Belting Cutter Relationship Specialty Start Date End Date Elsewhere, Pcp PCP - General Family Medicine 12/25/21 documented as of this encounter
--- OUTSIDE RECORDS SUMMARY | 2022-11-06 15:28 | XMS_ITS | Encounter Summary ---
:1965 Author Organization [facility] Address [address] [place] [address] Care Team Providers Name Role Phone Elsewhere, Pcp Primary Care Provider Unavailable Reason for Referral Outpatient (Routine) - Closed Specialty Diagnoses / Procedures Referred By Contact Refer red To Contact Orthopedic Surgery Diagnoses Pain Shoulder Left Pre[facility] [address] [place] [address] Referral ID Status Reason Start Date Expiration Date Visits Requ ested Visits Authorized [id number] Closed 04/22/2022 04/22/2023 1 1 Reason for Visit Reason Comments pre op orders Encounter Details Date Type Department Care Team Description 04/22/2022 Clinical Communication Department of Cyrus Polk op orders Orthopedic Surgery in Lilian Souza [place], [place] [address] [place] [address] 200 [place] [address] [phone] Social History Tobacco Use Types Packs/Day Years [...] 05/17/2022 organizations such as holiness groups, unions, fraLemoptix or athletic groups, or school groups? How [...] 05/17/2022 DTL Black/ mL/min/BSA 12:12 PM CDT Norwegian Comment: ----ADDITIONAL INFORMATION---- Estimated GFR calculated [...] [facility] - [address] [place], [place] [address] [place] [address] [facility] [address] Type and Screen [...] [facility] - [address] [place], [place] [address] [place] [address] [facility] [address] (ABNORMAL) CBC with Differential, Blood (05/17/2022 10:50 AM CDT) [facility] [employer] Method Time Signature Hemoglobin 9.2 (L) 11.6 [...] e Number [facility] - [address] [place] [address] [place] [address] [facility] 200 [facility] SARS Coronavirus 2, Molecular Detection, PCR, Varies Asymptomatic (05/17/2022 10:26 AM CDT) [facility] Method Time Signature COVID-19, Swab, 05/17/2022 DTL [...] ----ADDITIONAL INFORMATION---- This RT-PCR test using the Treater SARS-Co V-2 Assay ( [employer].) performed on the Treater Two Module System has received Emergency Use Authorization (EUA) by the U.S. Food and Drug Administration, and is modified from the cripple chaser's instructions with a bridging study. Performance characteristics were verifie d by [facility] in a manner consistent with CLIA requirements. Visit the CDC website: https://www.cdc.g ov/coronavirus/ for the most recent guidelines on [facility] virus testing. Fact Sheet for Healthcare Providers: https://www.fda.gov/media/088876/downloa d Fact Sheet for Patients: https://www.fda.gov/media/533346/downloa d Specimen Anatomical Collection Method Collection Time Receive d Time (Source) Location / / Volume Laterality Varies 05/17/2022 10:26 05/17/2022 (Nasopharynx) AM CDT 10:52 AM CDT Alfredo Kamara LAB MICROBIOLOGY - GENERAL O PATERASARAH Performing Organization Address City/State/ZIP Code Phon e Number [facility] - [address] [place], [place] [address] [place] [address] [facility] [address] documented in this encounter Visit Diagnoses Diagnosis Pain Shoulder Left - Primary Preoperative Exam documented in this encounter Additional Health Concerns Assessment Noted Time PHQ-9 Depression Total Score: 16 02/11/2021 12:00 AM C DT documented as of this encounter Care Teams Emulsion Coater Relationship Specialty Start Date End Date Elsewhere, Pcp PCP - General Family Medicine 12/25/21 documented as of this encounter
--- OUTSIDE RECORDS SUMMARY | 2022-11-06 15:29 | XMS_ITS | Encounter Summary ---
:1965 Author Organization [facility] Address [address] [place] [address] Care Team Providers Name Role Phone Elsewhere, Pcp Primary Care Provider Unavailable Encounter Details Date Type Department Care Team Description 03/02/2022 Orders Only Pharmacy Prior Auth Brooklyn Frias [phone] Social History Tobacco Use Types Packs/Day Years [...] you attend quaker or Patient refused 2021 yarsanism services? Do [...] documented as of this encounter Care Teams Nursing Staff Development Coordinator Relationship Specialty Start Date End Date Elsewhere, Pcp PCP - General Family Medicine 12/25/21 documented as of this encounter
--- OUTSIDE RECORDS SUMMARY | 2022-11-06 15:29 | XMS_ITS | Encounter Summary ---
:1965 Author Organization [facility] Address [address] [place] [address] Care Team Providers Name Role Phone Elsewhere, Pcp Primary Care Provider Unavailable Encounter Details Date Type Department Care Team Description 03/03/2022 Orders Only Pharmacy Prior Auth Ana Rosa Ying [phone] Social History Tobacco Use Types Packs/Day Years [...] you attend yarsani or Patient refused 2021 hindu services? Do [...] documented as of this encounter Care Teams Boiler Inspector Relationship Specialty Start Date End Date Elsewhere, Pcp PCP - General Family Medicine 12/25/21 documented as of this encounter
--- OUTSIDE RECORDS SUMMARY | 2022-11-06 15:29 | XMS_ITS | Encounter Summary ---
:1965 Author Organization [facility] [place] [facility] Address [address] [place] [address] Care Team Providers Name Role Phone Elsewhere, Pcp Primary Care Provider Unavailable Encounter Details Date Type Department Care Team Description 03/08/2022 Documentation Department of Orthopedic Melissa Mcdonald M.D. Surgery in [place], [place] [address] [place] [address] Social History Tobacco Use [...] as of this encounter Care Teams Cotton Farmer Relationship Specialty Start Date End Date Elsewhere, Pcp PCP - General Family Medicine 12/25/21 documented as of this encounter
--- OUTSIDE RECORDS SUMMARY | 2022-11-06 15:29 | XMS_ITS | Encounter Summary ---
:1965 Author Organization [facility] Address [address] [place] [address] Care Team Providers Name Role Phone Elsewhere, Pcp Primary Care Provider Unavailable Encounter Details Date Type Department Care Team Description 02/26/2022 Clinical Communication [facility] Main Phar Janet Sarmiento N, [address] [facility].Ph.T. [place], [place] [phone] [address] (Work) [phone] Social History Tobacco Use Types Packs/Day Years [...] you attend buddhist or Patient refused 2021 yazidism services? Do [...] as of this encounter Care Teams Contract Consultant Relationship Specialty Start Date End Date Elsewhere, Pcp PCP - General Family Medicine 12/25/21 documented as of this encounter
--- OUTSIDE RECORDS SUMMARY | 2022-11-06 15:29 | XMS_ITS | Encounter Summary ---
:1965 Author Organization [facility] Address [address] [place] [address] Care Team Providers Name Role Phone Elsewhere, Pcp Primary Care Provider Unavailable Encounter Details Date Type Department Care Team Description 02/26/2022 Orders Only [facility] Michael Chino M. D. [place] [address] [place] [address] Social History Tobacco Use Types Packs/Day Years [...] you attend episcopal or Patient refused 2021 hinduism services? Do [...] documented as of this encounter Care Teams Gunner'S Mate M Relationship Specialty Start Date End Date Elsewhere, Pcp PCP - General Family Medicine 12/25/21 documented as of this encounter
--- OUTSIDE RECORDS SUMMARY | 2022-11-06 15:29 | XMS_ITS | Encounter Summary ---
:1965 Author Organization [facility] Address [address] [place] [address] Care Team Providers Name Role Phone Elsewhere, Pcp Primary Care Provider Unavailable Reason for Visit Reason Comments Medication Question Encounter Details Date Type Department Care Team Description 03/08/2022 Clinical Communication Department of [facility] Orthopedic Surgery Cyrus Souza M.D. in [place], [address] [place] [address] [place] [phone] [place], [place] [phone] (Work) [phone] Social History Tobacco Use Types Packs/Day Years [...] you attend gnosticism or Patient refused 2021 hindu services? Do [...] 03/08/2022 11:22 AM CDT Kylie, pharmacist at [facility] in [place] calls. She is wondering if you indeed want to fill it. Please call her back at [phone] Regarding the oxycodone script sent today---patient had [...] as of this encounter Care Teams Labor Specialist Relationship Specialty Start Date End Date Elsewhere, Pcp PCP - General Family Medicine 12/25/21 documented as of this encounter
--- OUTSIDE RECORDS SUMMARY | 2022-11-06 15:29 | XMS_ITS | Encounter Summary ---
:1965 Author Organization [facility] Address [address] [place] [address] Care Team Providers Name Role Phone Elsewhere, Pcp Primary Care Provider Unavailable Encounter Details Date Type Department Care Team Description 03/08/2022 Orders Only Department of Orthopedic Melissa Mcdonald M.D. Surgery in [place], [place] [address] [place] [phone] Social History Tobacco Use Types [...] you attend cheondoism or Patient refused 2021 restorationism services? Do [...] documented as of this encounter Care Teams Burring Wheel Operator Relationship Specialty Start Date End Date Elsewhere, Pcp PCP - General Family Medicine 12/25/21 documented as of this encounter
--- OUTSIDE RECORDS SUMMARY | 2022-11-06 15:29 | XMS_ITS | Encounter Summary ---
:1965 Author Organization [facility] Address [address] [place] [address] Care Team Providers Name Role Phone Elsewhere, Pcp Primary Care Provider Unavailable Reason for Visit Reason Comments Med Refill Encounter Details Date Type Department Care Team Description 03/02/2022 Refill Division of [facility] Ridge Vega M.D. Med Refill Internal Medicine, [place] 200 [address] [facility] in [facility] [place] [address] [place] [address] [place] [address] [place] [address] Social History Tobacco Use [...] you attend samaritan or Patient refused 2021 taoism services? Do [...] as of this encounter Care Teams Air Shovel Operator Relationship Specialty Start Date End Date Elsewhere, Pcp PCP - General Family Medicine 12/25/21 documented as of this encounter
--- OUTSIDE RECORDS SUMMARY | 2022-11-06 15:29 | XMS_ITS | Encounter Summary ---
:1965 Author Organization [facility] Address [address] [place] [address] Care Team Providers Name Role Phone Elsewhere, Pcp Primary Care Provider Unavailable Reason for Visit Reason Comments Communication Encounter Details Date Type Department Care Team Description 03/11/2022 Clinical Communication Department of Cyrus Polk mmunication Orthopedic Surgery in Lilian Souza [place], [place] 200 [facility] 200 [place] [address] [phone] Social History Tobacco Use Types Packs/Day Years [...] you attend temple or Patient refused 2021 restorationist services? Do [...] and cannot afford any to drive to [place] and milk pickup driver [place]. Telephone Encounter - Radha Suh [...] documented as of this encounter Care Teams Electrical Fitter Relationship Specialty Start Date End Date Elsewhere, Pcp PCP - General Family Medicine 12/25/21 documented as of this encounter
--- OUTSIDE RECORDS SUMMARY | 2022-11-06 15:29 | XMS_ITS | Encounter Summary ---
:1965 Author Organization [facility] Address [address] [place] [address] Care Team Providers Name Role Phone Elsewhere, Pcp Primary Care Provider Unavailable Reason for Visit Reason Comments Medication Problem Encounter Details Date Type Department Care Team Description 03/01/2022 Clinical Communication Department of Jam [facility] Orthopedic Surgery Cyrus Souza M.D. in [place], [address] [place] [address] [place] [address] [place], [place] [phone] (Work) [phone] Social History Tobacco Use Types Packs/Day Years [...] you attend samaritan or Patient refused 2021 religion services? Do [...] 12:04 PM CDT PIPER. Received fax from [employer] 03-03-22 indicating the doxycycline [facility] 100 mg tab is approved through 11/27/2022. Telephone Encounter - Cyrus Polk M.D. - 03/02/2022 7:45 AM CDT Please see below Thank you Telephone Encounter - Radha Suh - 03/01/2022 3:36 PM CDT Regina pharmacist working for the insurance company calls regarding the doxycycline hyclate (DORYX) 100 mg EC tablet [[id number]] Script. This is not in their formulary. She has several questions to ask to consider approving this. Please call Regina de jesus [phone], ext [phone] Reference # [id number] documented in this encounter Plan of Treatment Not on filedocumented as of this encounter Visit Diagnoses Not on filedocumented in this encounter Additional Health Concerns Assessment Noted Time PHQ-9 Depression Total Score: 16 02/11/2021 12:00 AM C DT documented as of this encounter Care Teams Steel Inspector Relationship Specialty Start Date End Date Elsewhere, Pcp PCP - General Family Medicine 12/25/21 documented as of this encounter
--- OUTSIDE RECORDS SUMMARY | 2022-11-06 15:29 | XMS_ITS | Encounter Summary ---
:1965 Author Organization [facility] Address [address] [place] [address] Care Team Providers Name Role Phone Elsewhere, Pcp Primary Care Provider Unavailable Encounter Details Date Type Department Care Team Description 02/26/2022 Anesthesia Event RST [facility] OR Kaushik Carpenter, [address] [facility] [place] [address] [address] [facility] [phone] [place] [address] (Wo rk) Anesthesia Record Procedure Summary Procedure [...] h andoff to the receiving staff during [facility] we 1. Identified the patient 2. [...] 1221 Tejal Gonzalez Popp e, Kathryn L, (created via procedure [...] you attend samaritan or Patient refused 2021 rastafari services? Do [...] Procedure Summary Date: 02/26/22 Room / Location: [address] / [facility] in [place], [place] Anesthesia Start: 1212 Anesthesia Stop: 143 [...] ETT location: oral VL device: glide scope [place] scope blade size: 3 Adult tube size: [...] Pre-op diagnosis: Degenerative joint disease left. Location: [address] / [facility] in [place], [place] Providers: Cyrus Polk M.D. [...] with patient /legal guardian or through an otr owner operator. Risks/Benefits/Alternatives of Blood transfusion discussed with [...] fellow participated in the procedure, and the hospice care sales consultant was present for the entire [...] procedure ar e in the results section. [place] US GUIDE PLC NDL Routine 02/26/2022 11:53 Resu lts for this AM CDT procedure are i n the results section. AZ INJ ANES BRACHIAL Routine 02/26/2022 11:53 Res ults for this PLEX W GUIDANCE [...] Kaushik Carpenter M.B., Ch.B. 3. Juana Silva PLANT CONTROLS SPECIALIST, MACHINE TOOL TECHNICIAN INSTRUCTOR Patient location during procedure: OR / Procedure Area PROCEDURE DETAILS: Mask difficulty assessment: easy mask Final airway type: video laryngoscope Laryngeal Manipulation: no ?? Final best view of glottic structures - Cormack/Lehane Score: grade 1 ETT location: oral VL device: glide scope [place] scope blade size: 3 Adult tube size: [...] ATTESTATION STATEMENT Kaushik Carlos, Ch.B. ANESTHESIA ORDERABLES AZ INJ ANES BRACHIAL PLEX W GUIDANCE, [place] US GUIDE PLC NDL, MC ANE NERVE BLOCK WITH ULTRASOUND (02/26/2022 11:53 AM CDT) Narrative Jennie Brown M.D. - 02/26/2022 [...] fellow participated in the procedure, and the hospice care sales consultant was present for the entire [...] documented as of this encounter Care Teams Drilling Manager Relationship Specialty Start Date End Date Elsewhere, Pcp PCP - General Family Medicine 12/25/21 documented as of this encounter
--- OUTSIDE RECORDS SUMMARY | 2022-11-06 15:29 | XMS_ITS | Encounter Summary ---
:1965 Author Organization [facility] Address [address] [place] [address] Care Team Providers Name Role Phone Elsewhere, Pcp Primary Care Provider Unavailable Encounter Details Date Type Department Care Team Description 03/02/2022 Orders Only Pharmacy Prior Auth Sarmad Solano [phone] Social History Tobacco Use Types Packs/Day Years [...] attend roman catholic or Patient refused 2021 orthodox services? [...] documented as of this encounter Care Teams Charge Accounts Audit Clerk Relationship Specialty Start Date End Date Elsewhere, Pcp PCP - General Family Medicine 12/25/21 documented as of this encounter
--- OUTSIDE RECORDS SUMMARY | 2022-11-06 15:29 | XMS_ITS | Encounter Summary ---
:1965 Author Organization [facility] Address [address] [place] [address] Care Team Providers Name Role Phone Elsewhere, Pcp Primary Care Provider Unavailable Encounter Details Date Type Department Care Team Description 02/26/2022 Clinical Communication [facility] Pharmacy Blanca Galan Eisenberg C.Ph.T. 201 [facility] [phone] [place], [place] (Work) [phone] Social History Tobacco Use [...] you attend mormonism or Patient refused 2021 worship services? Do [...] documented as of this encounter Care Teams Configuration Management Specialist Relationship Specialty Start Date End Date Elsewhere, Pcp PCP - General Family Medicine 12/25/21 documented as of this encounter
--- OUTSIDE RECORDS SUMMARY | 2022-11-06 15:29 | XMS_ITS | Encounter Summary ---
:1965 Author Organization [facility] Address [address] [place] [address] Care Team Providers Name Role Phone Elsewhere, Pcp Primary Care Provider Unavailable Encounter Details Date Type Department Care Team Description 02/26/2022 Clinical Communication [facility] Austyn Breaux, Pharmacy [facility] [address] [facility] [place] [address] Social History Tobacco Use Types [...] as of this encounter Care Teams Die Tripper Relationship Specialty Start Date End Date Elsewhere, Pcp PCP - General Family Medicine 12/25/21 documented as of this encounter
--- OUTSIDE RECORDS SUMMARY | 2022-11-06 15:29 | XMS_ITS | Encounter Summary ---
:1965 Author Organization [facility] Address [address] [place] [address] Care Team Providers Name Role Phone Elsewhere, Pcp Primary Care Provider Unavailable Encounter Details Date Type Department Care Team Description 03/08/2022 Orders Only Department of Orthopedic Melissa Mcdonald M.D. Surgery in [place], [place] [address] [place] [phone] Social History Tobacco Use Types [...] you attend confucianist or Patient refused 2021 alevism services? Do [...] documented as of this encounter Care Teams Flame Burner Relationship Specialty Start Date End Date Elsewhere, Pcp PCP - General Family Medicine 12/25/21 documented as of this encounter
--- OUTSIDE RECORDS SUMMARY | 2022-11-06 15:29 | XMS_ITS | Encounter Summary ---
:1965 Author Organization [facility] Address [address] [place] [address] Care Team Providers Name Role Phone Elsewhere, Pcp Primary Care Provider Unavailable Encounter Details Date Type Department Care Team Description 03/02/2022 Orders Only Pharmacy Prior Auth Ana Rosa Ying [phone] Social History Tobacco Use Types Packs/Day Years [...] you attend christian or Patient refused 2021 hoahaoism services? Do [...] documented as of this encounter Care Teams Calenderer Relationship Specialty Start Date End Date Elsewhere, Pcp PCP - General Family Medicine 12/25/21 documented as of this encounter
--- OUTSIDE RECORDS SUMMARY | 2022-11-06 15:29 | XMS_ITS | Encounter Summary ---
:1965 Author Organization [facility] Address [address] [place] [address] Care Team Providers Name Role Phone Elsewhere, Pcp Primary Care Provider Unavailable Reason for Referral Medication Prior Authorization - Denied Specialty Diagnoses / Procedures Referred By Contact Refer red To Contact Michael Chino M.D. Referral ID Status Reason Start Date Expiration Date Visits Requ ested Visits Authorized [id number] Denied 1 1 Encounter Details Date Type Department Care Team Description 02/26/2022 - Hospital Encounter [facility] Jam, Shoulder Joint Disorder Left; 02/27/2022 Hospital, Mandaen Cyrus Souza M.D. Pain Shoulder Left [facility] [address] [facility] [place], [place] Floor [address] [address] [facility] [phone] [place], [place] (Work) [phone] Social History Tobacco Use [...] 05/17/2022 organizations such as episcopal groups, unions, fraDefend Your Head or athletic groups, or school groups? How [...] THC multivit-min/iron/folic/ Take 1 tablet by 0 [id number] (HAIR, SKIN AND mouth daily. NAILS ADVANCED [...] capsule 2 (two) times a day. doxycycline monohydrate TAKE 1 TABLET BY 28 tablet 0 202102/26/2023 (ADOXA) 100 mg tablet MOUTH TWO TIMES A DAY FOR 14 DAYS acetaminophen (TYLENOL) Take 2 capsules 0 022 [...] - 02/27/2022 8:05 AM CDT Orthopedic Service: [facility] Hospital Admission Day: 02/26/2022 SUBJECTIVE POD1. [...] please page the Jam Service pager at [phone] For urgent matters from 6 pm until 6 am, please page [facility] at [phone] Michael Chino M.D. - 02/26/2022 3:03 PM CDT Orthopedic Service: [facility] Hospital Admission Day: 02/26/2022 SUBJECTIVE Patient seen postoperatively on the general care floor. Doing well. OBJECTIVE Vitals: 02/26/22 1433 02/26/22 1440 02/26/22 1445 02/26/22 1500 BP: 145/79 139/81 130/73 Pulse: 71 64 64 Heart Rate: 72 64 74 Temp: 36.4 ??C Resp: 16 Height: Weight: SpO2: 100% 97% 94% TempSrc: [...] am until 6 pm, please page the [employer] pager at [phone] For urgent matters from 6 pm until 6 am, please page [facility] at [phone] Clemente Buck Pharm.D., R.Ph. - 02/26/2022 9:17 AM CDT [...] List Status: In Progress Set By: Clemente Buck Pharm.D., R.Ph. at 02/26/2022 8:34 AM Taking? [...] Take 150 mg by mouth every morning. hugpmkugno-beejkerhnacuj-mvep (ESGIC) 50-325-40 mg per tablet Past Week [...] 1 spray as needed. 5 mg THC multivit-min/iron/folic/ksd501 (HAIR, SKIN AND NAILS ADVANCED ORAL) 02/25/2022 [...] of this patient. SUBJECTIVE Patient's Name: Angie Ashley DuvallDemetri Referring/Attending Provider: Cyrus Polk M.D. Medical Diagnosis: [...] ??? Nicotine Dependence Unspecified ??? 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 Direct Infection Of [...] Right Lives With: Alone Receives Help From: childrens club attendant, Family, Friend(s) ADL Assistance: Required assistance ADL Assistance Comments: Gets help from GUN PROFILER for her bath/shower and for her meals IADL/Homemaking Assistance: Required assistance IADL/Homemaking Assistance Comments: Gets help for housecleaning Driving: Independent Driving Comments: takes her cane and medical alert with her. Occupational Role: On disability Occupational Role Comments: Previously worked at a [employer] and [employer] Prior Mobility/Functional Transfers Level of Bent: Modified independent Previous Transfer/Mobility Assistance Comments: Patient [...] Climbing 3-5 steps with a railing?: None [facility] Basic Mobility (V.2) Raw Score: 24 [facility] Basic Mobility (V.2) Standardized Score: 57.68 [...] Prescriptions were sent and filled at the [facility] pharmacy. Catalina Mccloud R.N. - 02/27/2022 [...] elsewhere status post placement antibiotic spacer. A patient assistant was necessary for one or more [...] be placed with approximately 70% contact with eastern shoshone bone. The more superior aspect of the [...] of antibiotic spacer, implantation of reverse arthroplasty, [id number] Cyrus Polk M.D. CT CT Job ID: [id number] documented in this encounter Plan of Treatment [...] City/State/ZIP Code Phon e Number [facility] - [address] [place] [address] [address] [facility] [place] [address] Laboratories-[facility] 200 [facility] (ABNORMAL) Basic Metabolic Panel (02/26/2022 [...] 02/26/2022 DTL Black/ mL/min/BSA 6:27 PM CDT Zimbabwean Comment: ----ADDITIONAL INFORMATION---- Estimated GFR calculated [...] City/State/ZIP Code Phon e Number [facility] - [address] [place] [address] [address] [facility] [place] [address] [facility] 200 [facility] (ABNORMAL) CBC with Differential, Blood (02/26/2022 3:47 PM CDT) [facility] gist Method Time Signature Hemoglobin 8.8 [...] City/State/ZIP Code Phon e Number [facility] - [address] [place], [place] [address] [facility] [place] [place] [address] [facility] [address] [...] Aerobe / Anaerobe+Susc (02/26/2022 1:00 PM CDT) [facility] Method Time Signature Bacteria Cult, No growth 03/12/2022 DTL Aerobe/Anaerob after 14 2:02 PM CDT e+Susc days of incubation. Specimen Anatomical Collection Method Collection Time Receive d Time (Source) Location / / Volume Laterality Shoulder, Left 02/26/2022 1:00 PM 022 1:41 CDT PM CDT Comment: Specimen Source Site: Tissue 1 Narrative [facility] - 03/12/2022 2:02 PM CDT Bacterial Culture: Placed in Bactec aero bic and Bactec anaerobic bottles Cyrus Polk M.D. LAB MICROBIOLOGY - GENERAL O MARY Performing Organization Address City/[facility] Phon e Number [facility] - [address] [place], [place] [address] [address] [facility] [place], [place] [address] [place] [address] Bacteria Cult, Aerobe / Anaerobe+Susc (02/26/2022 1:00 PM CDT) [facility] Method Time Signature Bacteria Cult, No growth 03/12/2022 DTL Aerobe/Anaerob after 14 2:02 PM CDT e+Susc days of incubation. Specimen Anatomical Collection Method Collection Time Receive d Time (Source) Location / / Volume Laterality Shoulder, Left 02/26/2022 1:00 PM 022 1:38 CDT PM CDT Comment: Specimen Source Site: Tissue 3 Narrative [facility] - 03/12/2022 2:02 PM CDT Bacterial Culture: Placed in Bactec aero bic and Bactec anaerobic bottles Cyrus Polk M.D. LAB MICROBIOLOGY - GENERAL O MARY Performing Organization Address City/[facility] Phon e Number [facility] - [address] [place], [place] [address] [facility] [place], [place] [address] [place] [address] 200 [facility] Bacteria Cult, Aerobe / Anaerobe+Susc [...] Source Site: Tissue 2 Narrative [facility] - [facility] - 03/12/2022 2:02 PM CDT Bacterial Culture: Placed in Bactec aero bic and Bactec anaerobic bottles Cyrus Polk M.D. LAB MICROBIOLOGY - GENERAL O RDERABLES Performing Organization Address City/State/ZIP Code Phon e Number [facility] - [address] [place] [address] [address] [facility] [place] [place] [address] [facility] 200 [facility] Surgical Pathology, Frozen Lab (02/26/2022 1:00 PM CDT) Component Value Ref Test Analysis Performed Pathologis t Range Method Time At [facility] 03/01/2022 METH 3:43 PM CDT Participated in [...] sections. ??Grossed by Nan Ledezma M.S., PA([facility]). Block Summary A Left shoulder 03/01/2022 [...] City/State/ZIP Code Phon e Number [facility] - [address] [place], [place] [address] [facility] [place] [address] [facility] [address] [...] XL) 0825 (Given - Provider: Catalina Mccloud RBetsy) 150 [...] 2 hour MS N, indigestion, Starting on Tue02/26/22 at 1451, [...] (COMPLETED) 0433 (Given - Provider: Lauren Mckeon R.NBrtiton) 0.2 mg, intravenous, Every 2 hour PRN, [...] RBrittonN., ONC)0433 (Given - Provider: Lauren Mckeon R.N.)0753 (Given - Provider: Catalina Mccloud R.N.) 10 [...] documented as of this encounter Care Teams Resource Efficiency Manager Relationship Specialty Start Date End Date Elsewhere, Pcp PCP - General Family Medicine 12/25/21 documented as of this encounter
--- OUTSIDE RECORDS SUMMARY | 2022-11-06 15:29 | XMS_ITS | Encounter Summary ---
:1965 Author Organization [facility] Address [address] [place] [address] Care Team Providers Name Role Phone Elsewhere, [...] you attend baptist or Patient refused 2021 latter day services? [...] documented as of this encounter Care Teams Mac Artist Relationship Specialty Start Date End Date Elsewhere, Pcp PCP - General Family Medicine 12/25/21 documented as of this encounter
--- OUTSIDE RECORDS SUMMARY | 2022-11-06 15:29 | XMS_ITS | Encounter Summary ---
:1965 Author Organization [facility] Address [address] [place] [address] Care Team Providers Name Role Phone Elsewhere, Pcp Primary Care Provider Unavailable Encounter Details Date Type Department Care Team Description 03/03/2022 Orders Only Pharmacy Prior Auth Usha Maurer [phone] Social History Tobacco Use Types Packs/Day Years [...] you attend tenriism or Patient refused 2021 zoroastrianism services? Do [...] documented as of this encounter Care Teams Sand Control Worker Relationship Specialty Start Date End Date Elsewhere, Pcp PCP - General Family Medicine 12/25/21 documented as of this encounter
--- OUTSIDE RECORDS SUMMARY | 2022-11-06 15:29 | XMS_ITS | Encounter Summary ---
:1965 Author Organization [facility] Address [address] [place] [address] Care Team Providers Name Role Phone Elsewhere, Pcp Primary Care Provider Unavailable Encounter Details Date Type Department Care Team Description 03/03/2022 Orders Only Pharmacy Prior Auth Yady Lebron [phone] Social History Tobacco Use Types Packs/Day Years [...] you attend latter-day or Patient refused 2021 synagogue services? Do [...] as of this encounter Care Teams Concrete Block Molder Relationship Specialty Start Date End Date Elsewhere, Pcp PCP - General Family Medicine 12/25/21 documented as of this encounter
--- OUTSIDE RECORDS SUMMARY | 2022-11-06 15:29 | XMS_ITS | Encounter Summary ---
:1965 Author Organization [facility] Address [address] [place] [address] Care Team Providers Name Role Phone Elsewhere, Pcp Primary Care Provider Unavailable Encounter Details Date Type Department Care Team Description 03/05/2022 Clinical Communication Pharmacy Prior Auth Ben Chino RO M.D. [phone] Social History Tobacco Use Types Packs/Day Years [...] documented as of this encounter Care Teams Kinesiologist Relationship Specialty Start Date End Date Elsewhere, Pcp PCP - General Family Medicine 12/25/21 documented as of this encounter
--- OUTSIDE RECORDS SUMMARY | 2022-11-06 15:29 | XMS_ITS | Encounter Summary ---
:1965 Author Organization [facility] Address [address] [place] [address] Care Team Providers Name Role Phone Elsewhere, Pcp Primary Care Provider Unavailable Encounter Details Date Type Department Care Team Description 03/05/2022 Orders Only Pharmacy Prior Auth RO Elsewhere, Pcp [phone] Social History Tobacco Use Types Packs/Day Years [...] you attend religion or Patient refused 2021 holiness services? Do [...] documented as of this encounter Care Teams Hat Renovator Relationship Specialty Start Date End Date Elsewhere, Pcp PCP - General Family Medicine 12/25/21 documented as of this encounter
--- OUTSIDE RECORDS SUMMARY | 2022-11-06 15:29 | XMS_ITS | Encounter Summary ---
:1965 Author Organization [facility] Address [address] [place] [address] Care Team Providers Name Role Phone Elsewhere, Pcp Primary Care Provider Unavailable Encounter Details Date Type Department Care Team Description 03/11/2022 Documentation Department of Orthopedic Melissa Mcdonald M.D. Surgery in [place], [place] [address] [place] [phone] Social History Tobacco Use Types [...] you attend spiritism or Patient refused 2021 adventist services? Do [...] Mr. Mosquera if he could come to [place] to diamond picker a new sling tomorrow and he [...] documented as of this encounter Care Teams President [employer] Relationship Specialty Start Date End Date Elsewhere, Pcp PCP - General Family Medicine 12/25/21 documented as of this encounter
--- OUTSIDE RECORDS SUMMARY | 2022-11-06 15:30 | XMS_ITS | Encounter Summary ---
:1965 Author Organization [facility] Address [address] [place] [address] Care Team Providers Name Role Phone Elsewhere, Pcp Primary Care Provider Unavailable Reason for Visit Reason Comments Labs Only Encounter Details Date Type Department Care Team Description 02/05/2022 Documentation Section of Infectious Amna Kaur , Labs Only Diseases in [facility] 200 [facility] [address] [place] [phone] Social History Tobacco Use Types Packs/Day Years [...] you attend faith or Patient refused 2021 christian services? Do [...] PM CST Labs entered at this time. RNATIONAL MARKETING MANAGER documented in this encounter Plan of Treatment Not on filedocumented as of this encounter Procedures Procedure Name Priority Date/Time Associated Comments Diagnosis CBC WITH DIFFERENTIAL, B Routine 02/04/2022 3:06 Results for this PM INTERNATIONAL MARKETING MANAGER procedure are i n the results section. ALANINE AMINOTRANSFERASE Routine 02/04/2022 3:06 Results for this (ALT), S/P PM INTERNATIONAL MARKETING MANAGER procedure are i n the results section. ALKALINE PHOSPHATASE, Routine 02/04/2022 3:06 Res ults for this S/P PM INTERNATIONAL MARKETING MANAGER procedure are i n the results section. CREATININE WITH EGFR, Routine 02/04/2022 3:06 Res ults for this S/P PM INTERNATIONAL MARKETING MANAGER procedure are i n the results section. documented in this encounter Results ALT (Alanine Aminotransferase) (02/04/2022 3:06 PM INTERNATIONAL MARKETING MANAGER) P athologist Signature EXT ALT 20 4 - 35 OTHER (SPECIFY IN METAL SORTER) Specimen (Source) Anatomical Location Collection Method / Collectio n Time Received Time / Laterality Volume Blood (Blood, Venous) Resulting Agency Comment [facility] Abinash Madeleine M.D. LAB BLOOD ADD-ON Performing Organization Address City/State/ZIP Code Phon e Number OTHER (SPECIFY IN METAL SORTER) OTHER (SPECIFY IN METAL SORTER) N/A Alkaline Phosphatase (02/04/2022 3:06 PM INTERNATIONAL MARKETING MANAGER) P athologist Signature EXT Alkaline 102 40 - 150 OTHER (SPECIFY Phosphatase IN METAL SORTER) Specimen (Source) Anatomical Location Collection Method / Collectio n Time Received Time / Laterality Volume Blood (Blood, Venous) Resulting Agency Comment [facility] Gucci Salvador M.D. LAB BLOOD ADD-ON Performing Organization Address City/[facility] Phon e Number OTHER (SPECIFY IN METAL SORTER) OTHER (SPECIFY IN METAL SORTER) N/A Creatinine with Estimated GFR (02/04/2022 3:06 PM INTERNATIONAL MARKETING MANAGER) P athologist Signature EXT Creatinine 0.7 0.5 - 1.5 OTHER (SPECIFY mg/dL IN METAL SORTER) Specimen (Source) Anatomical Location Collection Method / Collectio n Time Received Time / Laterality Volume Blood (Blood, Venous) Resulting Agency Comment [facility] Gucci Salvador M.D. LAB BLOOD ADD-ON Performing Organization Address City/[facility]/ZIP [facility] Phon e Number OTHER (SPECIFY IN METAL SORTER) OTHER (SPECIFY IN METAL SORTER) N/A (ABNORMAL) CBC with Differential, Blood (02/04/2022 3:06 PM INTERNATIONAL MARKETING MANAGER) P athologist Signature EXT Platelet 253 150 - 450 OTHER Count (SPECIFY IN METAL SORTER) EXT Hemoglobin 9.1 (A) 12 - 15.5 OTHER (SPECIFY IN METAL SORTER) EXT White Blood 4.0 (A) 5.0 - 10.0 OTHER Cell (WBC) (SPECIFY IN Count METAL SORTER) Specimen (Source) Anatomical Location Collection Method / Collectio n Time Received Time / Laterality Volume Blood (Blood, Venous) Narrative This result has an attachment that is no t available. Resulting Agency Comment [facility] Gucci Salvador M.D. LAB BLOOD ADD-ON Performing Organization Address City/[facility]/ZIP [facility] Phon e Number OTHER (SPECIFY IN METAL SORTER) OTHER (SPECIFY IN METAL SORTER) N/A documented in this encounter Visit Diagnoses Not on filedocumented in this encounter Additional Health Concerns Assessment Noted Time PHQ-9 Depression Total Score: 16 02/11/2021 12:00 AM C DT documented as of this encounter Care Teams Community Service Aide Relationship Specialty Start Date End Date Elsewhere, Pcp PCP - General Family Medicine 12/25/21 documented as of this encounter
--- OUTSIDE RECORDS SUMMARY | 2022-11-06 15:30 | XMS_ITS | Encounter Summary ---
:1965 Author Organization [facility] Address [address] [place] [address] Care Team Providers Name Role Phone Elsewhere, Pcp Primary Care Provider Unavailable Reason for Referral Outpatient (Routine) - Authorized Specialty Diagnoses / Procedures Referred By Contact Refer red To Contact Diagnoses Communications Officer Antibiotic Treatment Tejal Medley MPAS, P.A.-C., M.S. [address] [place] [phone] Referral ID Status Reason Start Expiration Visits Visits Date Date Requested Authorized [id number] Authorized Patient 02/08/2022 02/08/2023 1 1 Preference Reason for Visit Reason Comments OPAT Care Coordination Encounter Details Date Type Department Care Team Description 02/08/2022 Clinical Communication Section of Desirae Domingo (Care Infectious Diseases M, R.N. Coordination) in [place], [address] [place] [address] [place] [phone] [place], [place] [phone] (Work) [phone] Social History Tobacco Use Types Packs/Day Years [...] attend jehovah's witness or Patient refused 2021 nondenominational services? Do you belong to any clubs or No 05/17/2022 organizations such as jehovah's witness groups, unions, fraUbitricity or athletic groups, or school groups? How [...] 02/08/2022 12:06 PM CDT Maritza calls from [employer] stop date of 02/11 for IV antibiotics. Maritza requests order be faxed to [facility] where patient has labs and PICC site care done. I called the [facility], .Pull PIC order can be faxed to [phone]. documented in this encounter Plan of Treatment Not on filedocumented as of this encounter Visit Diagnoses Diagnosis Penitentiary Antibiotic Treatment - Primary documented in this encounter Additional Health Concerns Assessment Noted Time PHQ-9 Depression Total Score: 16 02/11/2021 12:00 AM C DT documented as of this encounter Care Teams Sound Person Relationship Specialty Start Date End Date Elsewhere, Pcp PCP - General Family Medicine 12/25/21 documented as of this encounter
--- OUTSIDE RECORDS SUMMARY | 2022-11-06 15:30 | XMS_ITS | Encounter Summary ---
:1965 Author Organization [facility] Address [address] [place] [address] Care Team Providers Name Role Phone Elsewhere, Pcp Primary Care Provider Unavailable Encounter Details Date Type Department Care Team Description 02/26/2022 Surgery RST SEBAS MORAN OR Cyrus Polk, ARTHROPLASTY REPLACEMENT [address] [facility] [place] [phone] [facility] [phone] [place] [address] Social History Tobacco Use Types Packs/Day Years [...] you attend anglican or Patient refused 2021 muslim services? Do [...] or the highest technical, or vocational p 1st Merchant [employer] degree you have received? Sex Assigned at [...] THC multivit-min/iron/folic/ Take 1 tablet by 0 [id number] (HAIR, SKIN AND mouth daily. NAILS ADVANCED [...] - 02/27/2022 8:05 AM CDT Orthopedic Service: [facility] Admission Day: 02/26/2022 SUBJECTIVE POD1. [...] am until 6 pm, please page the [facility] pager at [phone] For urgent matters from 6 pm until 6 am, please page Ortho House at [phone] Michael Chino M.D. - 02/26/2022 3:03 PM CDT Orthopedic Service: [facility] Hospital Admission Day: 02/26/2022 SUBJECTIVE [...] am until 6 pm, please page the [facility] pager at [phone] For urgent matters from 6 pm until 6 am, please page Ortho House at [phone] Clemente Buck, Pharm.D., R.Ph. - 02/26/2022 9:17 [...] Take 150 mg by mouth every morning. omgusciigg-fwlisbcdfukva-pcmh (ESGIC) 50-325-40 mg per tablet Past Week [...] 1 spray as needed. 5 mg THC multivit-min/iron/folic/knv275 (HAIR, SKIN AND NAILS ADVANCED ORAL) 02/25/2022 [...] (HCC) ??? Nicotine Dependence Unspecified ??? 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 Direct Infection Of [...] Right Lives With: Alone Receives Help From: ward attendant, Family, Friend(s) ADL Assistance: Required assistance ADL Assistance Comments: Gets help from MATERIALS ASSISTANT for her bath/shower and for her meals IADL/Homemaking Assistance: Required assistance IADL/Homemaking Assistance Comments: Gets help for housecleaning Driving: Independent Driving Comments: takes her cane and medical alert with her. Occupational Role: On disability Occupational Role Comments: Previously worked at a [employer] Prior Mobility/Functional Transfers Level of [place]: Modified independent Previous Transfer/Mobility Assistance Comments: Patient [...] mask during therapy session: yes Outcome Measures -[facility] Inpatient Short Form: AM-[facility] Basic Mobility (V.2) How much [...] Climbing 3-5 steps with a railing?: None AM-[facility] Basic Mobility (V.2) Raw Score: 24 AM-[facility] Basic Mobility (V.2) Standardized Score: 57.68 Interpretation: Clinicians answer the -[facility] Inpatient Short Form based on [...] were sent and filled at the [facility] pharmacy. Catalina Mccloud R.N. - 02/27/2022 12:00 PM CDT Shift Goals: Clinical Goals for the Shift: 1) Manage pain Identify possible barriers to meeting goals/advancing plan of care: chronic pain End of Shift Summary: Patient was able to be discharged with transport provided by a friend. documented in this encounter OR Notes Op Note - Cryus Polk M.D. - 02/26/2022 9:22 AM CDT STAFF: Cyrus Polk M.D. RESIDENT: Michael Chino M.D. 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 A certified anesthesiologist assistant was necessary for one or [...] be placed with approximately 70% contact with tribe bone. The more superior aspect of the [...] of antibiotic spacer, implantation of reverse arthroplasty, [id number] Cyrus Polk M.D. CT CT Job ID: [id number] documented in this encounter Plan of Treatment [...] [facility] - [address] [place], [place] [address] [facility] [place] [address] Laboratories-[facility] [address] (ABNORMAL) Basic Metabolic Panel [...] 02/26/2022 DTL Black/ mL/min/BSA 6:27 PM CDT Italian Comment: ----ADDITIONAL INFORMATION---- Estimated GFR calculated using [...] [facility] - [address] [place], [place] [address] [facility] [place] [address] [facility] [address] [facility] (ABNORMAL) CBC with Differential, Blood (02/26/2022 3:47 PM CDT) [facility] Method Time Signature Hemoglobin 8.8 (L) 11.6 [...] [facility] - [address] [place] [address] [facility] [place] [address] Laboratories-[address] DX Shoulder Left 1 View (02/26/2022 [...] Michael Chino M.D. IMG DIAGNOSTIC IMAGING PROCE IVANNAES Bacteria Cult, Aerobe / Anaerobe+Susc (02/26/2022 1:00 PM CDT) [facility] gist Method Time Signature Bacteria Cult, No growth 03/12/2022 DTL Aerobe/Anaerob after 14 2:02 PM CDT e+Susc days of incubation. Specimen Anatomical Collection Method Collection Time Receive d Time (Source) Location / / Volume Laterality Shoulder, Left 02/26/2022 1:00 PM 022 1:41 CDT PM CDT Comment: Specimen Source Site: Tissue 1 [facility] - 03/12/2022 2:02 PM CDT Bacterial Culture: Placed in Bactec aero bic and Bactec anaerobic bottles Cyrus Polk M.D. LAB MICROBIOLOGY - GENERAL O MARY Performing Organization Address City/[facility] Phon e Number [facility] - [address] [place], [place] [address] [place], [place] [phone] [place] [address] 200 [facility] Bacteria Cult, Aerobe / Anaerobe+Susc (02/26/2022 1:00 PM CDT) [facility] Method Time Signature Bacteria Cult, No growth 03/12/2022 DTL Aerobe/Anaerob after 14 2:02 PM CDT e+Susc days of incubation. Specimen Anatomical Collection Method Collection Time Receive d Time (Source) Location / / Volume Laterality Shoulder, Left 02/26/2022 1:00 PM 022 1:38 CDT PM CDT Comment: Specimen Source Site: Tissue 3 [facility] - 03/12/2022 2:02 PM CDT Bacterial Culture: Placed in Bactec aero bic and Bactec anaerobic bottles Cyrus Polk M.D. LAB MICROBIOLOGY - GENERAL Lebron HERNANDEZ Performing Organization Address City/[facility]/ZIP Code Phon e Number [facility] - [address] [place], [place] [address] [place], [place] [phone] [place] [address] [address] [facility] Bacteria Cult, Aerobe / Anaerobe+Susc (02/26/2022 1:00 PM CDT) [facility] Method Time Signature Bacteria Cult, No growth 03/12/2022 DTL Aerobe/Anaerob after 14 2:02 PM CDT e+Susc days of incubation. Specimen Anatomical Collection Method Collection Time Receive d Time (Source) Location / / Volume Laterality Shoulder, Left 02/26/2022 1:00 PM 04/01/2 022 1:36 CDT PM CDT Comment: Specimen Source Site: Tissue [address] [facility] - [facility] - 03/12/2022 2:02 PM CDT Bacterial Culture: Placed in Bactec aero bic and Bactec anaerobic bottles Cyrus Polk M.D. LAB MICROBIOLOGY - GENERAL O RDERABLES Performing Organization Address City/State/ZIP Code Phon e Number [facility] - [address] [place] [address] [facility] [place] [address] [facility] [address] [facility] Surgical Pathology, Frozen Lab (02/26/2022 1:00 PM [...] permanent sections. ??Grossed by Nan Ledezma M.S., PA([facility]). Block Summary A Left shoulder 03/01/2022 [...] [facility] - [address] [place], [place] [address] [facility] [place] [address] [facility] [address] [...] 02/26/2022 02/27/2022 acetaminophen tablet 1,000 mg (TYLENOL) 9682 (Given - Provider: Tanesha Butt)8028 (Given - Provider: Tanesha Butt) 0430 (Given - Provider: Lauren Mckeon R.N.)1104 (Given - Provider: Catalina Mccloud RBrittonNBritton) 1,000 mg, oral, Every 6 hours, [...] Butt) 0011 (Not Given - Provider: Lauren gracia RBrittonNBritton - Reason: Contraindicated)0606 (Given - Provider: Lauren Mckeon R.NBritton) 25 mg, oral, Every 6 hours, First dose on Tue02/26/22 at 1800 FLUoxetine capsule 80 mg (PROzac) 0825 (Given - Provider: Catalina Mccloud, R.NBritton) 80 mg, oral, Daily, First dose [...] NOKOT-S) 2040 (Given - Provider: Tanesha Butt) 08 (Given - Provider: Catalina Mccloud RBrittonNBritton) 1 [...] ED) 1330 (Given - Provider: Tejal Gonzalez R.NBritton) 1,000 mg (1 g), intravenous, at 300 mL/h r, Administer over 20 Minutes, Once, On Tue02/26/22 at 1100, For 1 dose, Intra-Op, Administer in OR just before dropping tourniquet vancomycin 1,000 mg in NaCl 0.9% 250 mL (VANCOCIN) IVPB (COM PLETED) 1251 (Given - Provider: Tejal Gonzalez RBetsy) 1,000 mg (rounded from 1,050 [...] mg of calcium, oral, Every 2 hour TX N, indigestion, Starting on Tue02/26/22 at 1451, [...] (CANCELED) 1508 (Given - Provider: Guillermina Oneill RBetsy) 25 mcg, intravenous, Every 2 min PRN, Fo r pain 4 or greater (maximum 100 mcg). If max dose of Fentanyl is reached and if pain is greater than 4, discontinue Fentanyl: give Hydromorphone, Starting on Tue02/26/22 at 1436, PACU (only) fentaNYL injection 50 mcg (SUBLIMAZE) (CANCELED) 1136 (Given - Provider: Donna Mercado RBetsy) 50 mcg, intravenous, Every 2 min PRN, [...] as of this encounter Care Teams Farmworker Vegetable Relationship Specialty Start Date End Date Elsewhere, Pcp PCP - General Family Medicine 12/25/21 documented as of this encounter
--- OUTSIDE RECORDS SUMMARY | 2022-11-06 15:30 | XMS_ITS | Encounter Summary ---
:1965 Author Organization [facility] Address [address] [place] [address] Care Team Providers Name Role Phone Elsewhere, Pcp Primary Care Provider Unavailable Reason for Visit Reason Comments OPAT Intervention Encounter Details Date Type Department Care Team Description 01/28/2022 Clinical Communication Section of Ruth Eddy (Intervention Infectious T, R.N. ) Diseases in [address] [place] [phone] [place] [address] [place], [place] (Work) [phone] Social History Tobacco Use Types Packs/Day Years [...] are for now to obtain ALP trend. T BROKER Telephone Encounter - Desirae Domingo RBrittonN. - 02/01/2022 12:11 PM CST Maritza calls from [place] regarding Alk phos from 01/28. It is greater than 1.5 the upper limit of normal. T BROKER Telephone Encounter - Su Greene, Pharm.D., R.Ph. - 01/29/2022 8:49 AM CST Reviewed WBC trend including WBC on 01/28, no changes at this time, see note from my colleague Jennifer Roca for details. T BROKER Telephone Encounter - Ruth Eddy R.N. - 01/29/2022 8:14 AM CST OPAT NOTE ?? Infusion Provider: [facility], phone: [phone], fax: [phone] Labs and site care at [facility], phone: [phone] Antimicrobial(s) currently prescribed: See Med List Hyperlink in note Firm stop date: 02/11/22 ?? Lab results from are viewable in the MCR record--listed as External Labs (received via fax, which has been uploaded to Document Viewer/Media) ?? Interpretation and action: The labs were reviewed. WBC and ANC are improving. I will send this to the provider for review. T BROKER Telephone Encounter - Jennifer Roca Pharm.D., R.Ph. - 01/28/2022 10:21 AM AGENT BROKER Pertinent labs and antimicrobial regimen as indicated [...] time. For monitoring: continue weekly OPAT labs. T BROKER Telephone Encounter - Ruth Eddy RBrittonN. - 01/28/2022 9:40 AM CST OPAT NOTE Infusion Provider: [facility], phone: [phone], fax: [phone] Labs and site care at [facility], phone: [phone] Antimicrobial(s) currently prescribed: See Med List Hyperlink in note Firm stop date: 02/11/22 Lab results from 01/21/2022 are viewable in the MCR record--listed as External Labs (received via fax, which has been uploaded to Document Viewer/Media) Interpretation and action: The labs were reviewed. WBC is 3.6 and ANC is 1.42. Alk Phos was not done. [facility] to [facility] that included alk phos that will be drawn today, 01-28-2022. T BROKER documented in this encounter Plan of Treatment Not on filedocumented as of this encounter Procedures Procedure Name Priority Date/Time Associated Comments Diagnosis CBC WITH DIFFERENTIAL, B Routine 01/28/2022 3:00 Results for this PM AGENT BROKER procedure are i n the results section. ALANINE AMINOTRANSFERASE Routine 01/28/2022 3:00 Results for this (ALT), S/P PM AGENT BROKER procedure are i n the results section. ALKALINE PHOSPHATASE, Routine 01/28/2022 3:00 Res ults for this S/P PM AGENT BROKER procedure are i n the results section. CREATININE WITH EGFR, Routine 01/28/2022 3:00 Res ults for this S/P PM AGENT BROKER procedure are i n the results section. [...] Results ALT (Alanine Aminotransferase) (01/28/2022 3:00 PM AGENT BROKER) athologist Signature EXT ALT 20 4 - 35 [facility] RE[facility]ERR[facility] Specimen (Source) Anatomical Location Collection Method / Collectio n Time Received Time / Laterality Volume Blood (Blood, Venous) Laly Ward APRN C.N.P. LAB BLOOD ADD-ON Performing Organization Address City/State/ZIP Code Phon e Number [facility] RE[facility]ERRAL [facility] (ABNORMAL) Alkaline Phosphatase (01/28/2022 3:00 PM AGENT BROKER) athologist Signature EXT Alkaline 97 (A) 40 - 50 [facility] REFERRAL Phosphatase LAB Specimen (Source) Anatomical Location Collection Method / Collectio n Time Received Time / Laterality Volume Blood (Blood, Venous) Laly Ward APRN, C.N.P. LAB BLOOD ADD-ON Performing Organization Address City/State/ZIP Code Phon e Number [facility] REFERRAL LAB Creatinine with Estimated GFR (01/28/2022 3:00 PM AGENT BROKER) athologist Signature EXT Creatinine 0.6 0.5 - [...] CBC with Differential, Blood (01/28/2022 3:00 PM AGENT BROKER) Analysis Performed At Patho logist Time Signature [...] documented as of this encounter Care Teams Sausage Inspector Relationship Specialty Start Date End Date Elsewhere, Pcp PCP - General Family Medicine 12/25/21 documented as of this encounter
--- OUTSIDE RECORDS SUMMARY | 2022-11-06 15:30 | XMS_ITS | Encounter Summary ---
:1965 Author Organization [facility] Address [address] [place] [address] Care Team Providers Name Role Phone Elsewhere, Pcp Primary Care Provider Unavailable Reason for Visit Reason Comments OPAT Normal labs Encounter Details Date Type Department Care Team Description 02/09/2022 Clinical Communication Section of Ruth Eddy (Normal labs) Infectious T, R.N. Diseases in [address] [place] [phone] [place] [address] [place], [place] (Work) [phone] Social History Tobacco Use Types Packs/Day Years [...] Provider: Dennis [facility], phone: [phone], fax: [phone] Labs and site care at [facility], phone: [phone] Antimicrobial(s) currently prescribed: See Med List Hyperlink [...] as of this encounter Care Teams Dairy And Food Laboratory Assistant Relationship Specialty Start Date End Date Elsewhere, Pcp PCP - General Family Medicine 12/25/21 documented as of this encounter
--- OUTSIDE RECORDS SUMMARY | 2022-11-06 15:30 | XMS_ITS | Encounter Summary ---
:[address] [facility] Address [address] [place] [address] Care Team Providers Name Role Phone Elsewhere, Pcp Primary Care Provider Unavailable Reason for Referral MRI/CAT/PET Scan (Routine) - Closed Specialty Diagnoses / Procedures Referred By Contact Refer red To Contact Radiology Diagnoses Painful Total Joint Arthroplasty Initial ([facility]) Michael Chino M.D. [facility] Procedures CT Shoulder Left without IV Contrast [address] [place] [address] Referral ID Status Reason Start Date Expiration Date Visits Requ ested Visits Authorized [id number] Closed 02/25/2022 02/25/2023 1 1 Encounter Details Date Type Department Care Team Description 02/25/2022 Orders Only Department of Michael Chino Painful T otal Joint Orthopedic Surgery in [place].Neri Arthro plasty Initial [place], [place] ([facility]) [address] [place] [address] Social History Tobacco Use Types Packs/Day Years [...] No 05/17/2022 organizations such as zoroastrianism groups, [employer], [employer] or athletic groups, or school groups? How [...] as of this encounter Care Teams Inside Sales Advertising Executive Relationship Specialty Start Date End Date Elsewhere, Pcp PCP - General Family Medicine 12/25/21 documented as of this encounter
--- OUTSIDE RECORDS SUMMARY | 2022-11-06 15:30 | XMS_ITS | Encounter Summary ---
:1965 Author Organization [facility] Address [address] [place] [address] Care Team Providers Name Role Phone Elsewhere, Pcp Primary Care Provider Unavailable Reason for Visit Reason Comments OPAT Monitoring Complete Encounter Details Date Type Department Care Team Description 02/12/2022 Clinical Communication Section of Kylie Siddiqui (Monitoring Infectious Diseases M, R.N. Complete) in [facility] [phone] [place] (Work) [address] [place] [phone] Social History Tobacco Use Types Packs/Day Years [...] you attend catholic or Patient refused 2021 restorationist services? Do [...] Complete) Information Discussed Princess, a nurse from [place], called to see if any labs need [...] documented as of this encounter Care Teams Dismantler Relationship Specialty Start Date End Date Elsewhere, Pcp PCP - General Family Medicine 12/25/21 documented as of this encounter
--- OUTSIDE RECORDS SUMMARY | 2022-11-06 15:30 | XMS_ITS | Encounter Summary ---
:1965 Author Organization [facility] Address [address] [place] [address] Care Team Providers Name Role Phone Elsewhere, Pcp Primary Care Provider Unavailable Encounter Details Date Type Department Care Team Description 01/08/2022 Clinical Communication Pharmacy Prior Auth ОЛЬГА Carrera M.D. [phone] Social History Tobacco Use Types Packs/Day Years [...] you attend scientologist or Patient refused 2021 mosque services? Do [...] Camelia CINTRON. Thank you, The OPPA Team RAFT ENGINE MECHANIC OVERHAUL documented in this encounter Plan of Treatment Not on filedocumented as of this encounter Visit Diagnoses Not on filedocumented in this encounter Additional Health Concerns Assessment Noted Time PHQ-9 Depression Total Score: 16 02/11/2021 12:00 AM C DT documented as of this encounter Care Teams Nuclear Reactor Technician Relationship Specialty Start Date End Date Elsewhere, Pcp PCP - General Family Medicine 12/25/21 documented as of this encounter
--- OUTSIDE RECORDS SUMMARY | 2022-11-06 15:30 | XMS_ITS | Encounter Summary ---
:1965 Author Organization [facility] Address [address] [place] [address] Care Team Providers Name Role Phone Elsewhere, Pcp Primary Care Provider Unavailable Reason for Visit Reason Comments OPAT Care Coordination Encounter Details Date Type Department Care Team Description 01/22/2022 Clinical Communication Section of Steven Dennis (Care Infectious Diseases E, R.N. Coordination) in [place], [facility] [place], [place] [address] [place] [phone] [place], [place] [phone] (Work) [phone] Social History Tobacco Use Types Packs/Day Years [...] you attend yazidism or Patient refused 2021 rastafarian services? Do [...] IR. ??Is she able to come to [place] for IR PICC placement? ??If not, we'll [...] I spoke to Carolynn, the nurse at [facility]. She spoke to their wound care nurse and she would liketo try some different dressings first before they move the PICC to the chest. They cannot place a PICC in the chest in [place], so if needed, the patient would have to come to [place]. The patientwill be there at 2 pm today. She will call back with the patient so we all can come up with a plan together. Addendum: We missed a call from Carolynn, infusion nurse at [facility]. Her message stated that PICCsite care was performed and the site looks better. The wound care team has a plan and is hoping thatshe can keep her current PICC. PUTTER AWAY Telephone Encounter - Tejal Rudolph R.N. - 01/22/2022 4:46 PM LAST PUTTER AWAY I have been unable to reach the patient, but I notified nurse Carolynn at [facility] of Dr. Boris Chaidez's recommendation, that they could try moving the line to the other arm and use a midline but avoid a chest PICC. I faxed the order for midline placement. Nurse Carolynn at [place] questioned whether the midline could be moved to the other (left) arm, because patient wears a sling on that arm. PUTTER AWAY Telephone Encounter - Steven Dennis R.N. - [...] She did get a special dressing from [facility] to use, but it doesn't seem to be helping. Dressing was changed at [facility] today and they applied some guaze to help with the drainage. 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
--- OUTSIDE RECORDS SUMMARY | 2022-11-06 15:30 | XMS_ITS | Encounter Summary ---
:1965 Author Organization [facility] Address [address] [place] [address] Care Team Providers Name Role Phone Elsewhere, Pcp Primary Care Provider Unavailable Reason for Referral MRI/CAT/PET Scan (Routine) - Closed Specialty Diagnoses / Procedures Referred By Contact Refer red To Contact Radiology Diagnoses Painful Total Joint Arthroplasty Initial ([facility]) Michael Chino M.D. [facility] Procedures CT Shoulder Left without IV Contrast 200 [place] [address] Referral ID Status Reason Start Date Expiration Date Visits Requ ested Visits Authorized [id number] Closed 02/25/2022 02/25/2023 1 1 Reason for Visit MRI/CAT/PET Scan (Routine) - Closed Specialty Diagnoses / Procedures Referred By Contact Refer red To Contact Radiology Diagnoses Painful Total Joint Arthroplasty Initial ([facility]) Michael Chino M.D. [facility] Procedures CT Shoulder Left without IV Contrast [address] [place] [phone] Referral ID Status Reason Start Date Expiration Date Visits Requ ested Visits Authorized [id number] Closed 02/25/2022 02/25/2023 1 1 Encounter Details Date Type Department Care Team Description 02/25/2022 Hospital Encounter Department of Michael Chino Total Joint Radiology, Severiano Celaya M.D. Arthropl [facility]) [place], [place] [address] [place] [address] Social History Tobacco Use Types Packs/Day Years [...] you attend spiritism or Patient refused 2021 scientologist services? Do [...] THC multivit-min/iron/folic/ Take 1 tablet by 0 [id number] (HAIR, SKIN AND mouth daily. NAILS ADVANCED [...] 0 01/202202/26/2022 total) by mouth every evening. cholecalciferol (VITAMIN Take 125 mcg by mouth [...] Acute Pain Exception. For pain after surgery sodium chloride 0.9 % Infuse 5 mL [...] documented as of this encounter Care Teams Schedule Manager Relationship Specialty Start Date End Date Elsewhere, Pcp PCP - General Family Medicine 12/25/21 documented as of this encounter
--- OUTSIDE RECORDS SUMMARY | 2022-11-06 15:30 | XMS_ITS | Encounter Summary ---
:1965 Author Organization [facility] Address [address] [place] [address] Care Team Providers Name Role Phone Elsewhere, Pcp Primary Care Provider Unavailable Encounter Details Date Type Department Care Team Description 01/08/2022 Orders Only Pharmacy Prior Auth RO Elsewhere, Pcp [phone] Social History Tobacco Use Types Packs/Day Years [...] as of this encounter Care Teams Utility Assembler Relationship Specialty Start Date End Date Elsewhere, Pcp PCP - General Family Medicine 12/25/21 documented as of this encounter
--- OUTSIDE RECORDS SUMMARY | 2022-11-06 15:30 | XMS_ITS | Encounter Summary ---
:1965 Author Organization [facility] Address [address] [place] [address] Care Team Providers Name Role Phone Elsewhere, Pcp Primary Care Provider Unavailable Reason for Visit Reason Comments OPAT Lab request Encounter Details Date Type Department Care Team Description 01/26/2022 Clinical Communication Section of Ruth Eddy (Lab request) Infectious T, R.N. Diseases in [address] [place] [phone] [place] [address] [place], [place] (Work) [phone] Social History Tobacco Use Types Packs/Day Years [...] you attend confucianism or Patient refused 2021 mandaen services? Do [...] Eddy RRebekah. - 01/26/2022 4:[address] [facility], phone: [phone] was called and message left to fax us lab results. Our fax and phone number was given. SHADE SEWER documented in this encounter Plan of Treatment Not on filedocumented as of this encounter Visit Diagnoses Not on filedocumented in this encounter Additional Health Concerns Assessment Noted Time PHQ-9 Depression Total Score: 16 02/11/2021 12:00 AM C DT documented as of this encounter Care Teams Cloth Opener Hand Relationship Specialty Start Date End Date Elsewhere, Pcp PCP - General Family Medicine 12/25/21 documented as of this encounter
--- OUTSIDE RECORDS SUMMARY | 2022-11-06 15:30 | XMS_ITS | Encounter Summary ---
:1965 Author Organization [facility] Address [address] [place] [address] Care Team Providers Name Role Phone Elsewhere, Pcp Primary Care Provider Unavailable Reason for Visit Outpatient (Routine) - Closed Specialty Diagnoses / Procedures Referred By Contact Refer red To Contact Infectious Diseases Diagnoses Aftercare [facility] [address] [place] [address] Referral ID Status Reason Start Date Expiration Date Visits Requ ested Visits Authorized [id number] Closed 01/01/2022 01/01/2023 1 1 Encounter Details Date Type Department Care Team Description 02/25/2022 Comprehensive Visit Section of Christiano Nixon M.D. [address] [place] [phone] Machine Heel Seat Fitter Antibiotic Treatment (Primary Dx); Infectious Diseases Russell Santos M.D. [address] [place] [phone] Infection Shoulder Prosthesis Subsequent ; in [place], Direct Infecti on Of Left Shoulder In Infectious And Parasitic Diseases Classified Elsewhere ([facility]); [place] Aftercare Total Shoulder Art hroplasty [address] [place] [phone] Social History Tobacco Use Types Packs/Day [...] 56 y.o. Birthdate: 1965 Sex: female Address: [address] [place] [phone] Referring Provider: Jose Guadalupe Nixon M.D. REASON [...] OSH AST. She presented to [facility] (unclear if on antibiotics) for further evaluation given persistent L shoulder pain 08/2021 prompting aspiration (09/25/21) which revealed elevated TNC (20090) with 81% PMNs with cultures positive for [...] thorough debridement.??The [facility]. Intraoperative cultures and [...] is consistent with aspiration results from original [facility] evaluation which is likely premium service representative of the culprit organism causing [...] of Infectious Diseases OPAT monitoring program at [phone] after dismissal. Primary service to follow labs while patient is hospitalized. [place] pharmacist to adjust dosing after dismissal 4. [...] 150 mg by mouth every morning. ??? gqjrenjcqy-izokjjpkuypmb-hidi (ESGIC) 50-325-40 mg per tablet Take 1 [...] 11 mo ago Resulting Agency CULTURE RESULT??Abnormal?? [facility] CULTURE 1+ Staphylococcus coagulase negative [facility] GRAM STAIN ? 1+ PMNs [facility] GRAM STAIN ? No organisms seen [facility] GRAM STAIN ? 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 Hepatic Function Panel ??? Basic Metabolic Panel Spent 36 minutes in total time both qkqe-gf-floi and non xxcv-fq-rgzs to face documented in this encounter Plan [...] 02/25/2022 DTL Black/ mL/min/BSA 11:19 AM CDT [place]i Comment: ----ADDITIONAL INFORMATION---- Estimated GFR calculated [...] [facility] Code Phon e Number [facility]E [facility] - [address] [place] [phone] [facility] [place] [address] Laboratories-[facility] 200 [facility] Hepatic Function Panel (02/25/2022 10:09 AM CDT) [facility] gist Method Time Signature Bilirubin, Total, [...] [facility] - [address] [place], [place] [address] [facility] [place] [address] [facility] [address] documented in this encounter Visit Diagnoses Diagnosis Machine Heel Seat Fitter Antibiotic Treatment - Primary Infection Shoulder Prosthesis Subsequent Direct Infection Of Left Shoulder In Inf ectious And Parasitic Diseases Classified Elsewhere (HCC) Aftercare Total Shoulder Arthroplasty documented in this encounter Additional Health Concerns Assessment Noted Time PHQ-9 Depression Total Score: 16 02/11/2021 12:00 AM C DT documented as of this encounter Care Teams Aerospace Project Manager Relationship Specialty Start Date End Date Elsewhere, Pcp PCP - General Family Medicine 12/25/21 documented as of this encounter
--- OUTSIDE RECORDS SUMMARY | 2022-11-06 15:30 | XMS_ITS | Encounter Summary ---
:1965 Author Organization [facility] Address [address] [place] [address] Care Team Providers Name Role Phone Elsewhere, Pcp Primary Care Provider Unavailable Encounter Details Date Type Department Care Team Description 01/05/2022 Clinical Communication Section of Infectious Ed , [facility] Diseases in [facility], SALES AND MANAGEMENT TRAINEE, C.N.P. [place] 200 [facility] 200 [place] [phone] Social History Tobacco Use Types Packs/Day Years [...] you attend buddhist or Patient refused 2021 roman catholic services? [...] Ward APRN, C.N.P. - 01/05/2022 2:17 PM HONEY EXTRACTOR Left shoulder synovial fluid culture from 12/30 has been reported for growth of oxacillin sensitive Staphylococcus epidermidis. No change recommended to the patient's current regimen of ceftriaxone. Y EXTRACTOR Telephone Encounter - Laly Ward APRN, C.N.P. - 01/05/2022 2:17 PM HONEY EXTRACTOR ----- Message from Su Greene, Pharm.D., R.Ph. sent at 01/05/2022 9:51 AM HONEY EXTRACTOR ----- Patient with shoulder infection (with previous [...] please message RST [facility]D [facility] PHARM[facility]IST pool. If urgent, page [phone] M-F 9am-5 pm Y EXTRACTOR documented in this encounter Plan of Treatment Not on filedocumented as of this encounter Visit Diagnoses Not on filedocumented in this encounter Additional Health Concerns Assessment Noted Time PHQ-9 Depression Total Score: 16 02/11/2021 12:00 AM C DT documented as of this encounter Care Teams Talent Management Manager Relationship Specialty Start Date End Date Elsewhere, Pcp PCP - General Family Medicine 12/25/21 documented as of this encounter
--- OUTSIDE RECORDS SUMMARY | 2022-11-06 15:30 | XMS_ITS | Encounter Summary ---
:1965 Author Organization [facility] Address [address] [place] [address] Care Team Providers Name Role Phone Elsewhere, Pcp Primary Care Provider Unavailable Reason for Visit Outpatient (Routine) - Closed Specialty Diagnoses / Procedures Referred By Contact Refer red To Contact Orthopedic Surgery Diagnoses Pain Shoulder Left Alfredo Herrera, [facility].-C. [address] [place] [address] Referral ID Status Reason Start Date Expiration Date Visits Requ ested Visits Authorized [id number] Closed 12/30/2021 12/30/2022 1 1 Encounter Details Date Type Department Care Team Description 02/25/2022 Office Visit Department of Orthopedic Cyrus Polk , Pain Shoulder Left Surgery in [facility] [address] [facility] [address] [place] [phone] Social History Tobacco Use Types Packs/Day Years [...] you attend cheondoism or Patient refused 2021 latter day services? Do you belong to any clubs or No 05/17/2022 organizations such as cheondoism groups, [employer], [employer]) or athletic groups, or school groups? How [...] may involve the use of a medical biller made by a company with1000 [employer] I or one of my partners have collaborated to design, develop, or improve orthopedic implants, instruments, or products. Both the [facility] and the individual surgeons involved receive royalty payments from the use of those specific devices at other institutions, but no royalties or any other payments are paid for the use of those devices with any [facility] patient. The clinical rationale for the use of those devices as well as the availability and applicability of alternative devices was reviewed. He understands that the final decision for the use of a specific medical biller often is made at the time of [...] documented as of this encounter Care Teams Welder Setter Electron Beam Machine Relationship Specialty Start Date End Date Elsewhere, Pcp PCP - General Family Medicine 12/25/21 documented as of this encounter
--- OUTSIDE RECORDS SUMMARY | 2022-11-06 15:30 | XMS_ITS | Encounter Summary ---
:1965 Author Organization [facility] Address 200 [place] [address] Care Team Providers Name Role Phone Elsewhere, Pcp Primary Care Provider Unavailable Encounter Details Date Type Department Care Team Description 01/01/2022 [facility], Eighth Floor 201 [place] [address] Social History Tobacco Use Types Packs/Day Years [...] as of this encounter Care Teams Vehicle Fuel Systems Converter Relationship Specialty Start Date End Date Elsewhere, Pcp PCP - General Family Medicine 12/25/21 documented as of this encounter
--- OUTSIDE RECORDS SUMMARY | 2022-11-06 15:30 | XMS_ITS | Encounter Summary ---
:1965 Author Organization [facility] Address 200 [place] [address] Care Team Providers Name Role Phone Elsewhere, Pcp Primary Care Provider Unavailable Reason for Visit Reason Comments OPAT Intervention Encounter Details Date Type Department Care Team Description 01/07/2022 Clinical Communication Section of MATTHEW Tolbert (Intervention) Infectious Diseases [facility] [phone] 200 [facility] (Work) [place] [address] Social History Tobacco Use Types Packs/Day Years [...] you attend yarsanism or Patient refused 2021 tenriism services? Do [...] Dandy Reyes, Pharm.D. - 01/12/2022 9:38 AM LIMEROCK TOWER LOADER Pertinent labs and antimicrobial regimen as indicated [...] >0.3 mg/dL and absolute value >1.0 mg/dL. ROCK TOWER LOADER Telephone Encounter - Steven Dennis R.N. - 01/12/2022 9:13 AM CST OPAT NOTE Infusion Provider: Dennis [facility], phone: [phone], fax: [phone] Labs and site care at [facility], phone: [phone] Antimicrobial(s) currently prescribed: See Med List Hyperlink in note Firm stop date: 02/11/22 Lab results from 01/07/22 are viewable in the MCR record--listed as External Labs (received via fax, which has been uploaded to Document Viewer/Media) Interpretation and action: Will send to the OPAT pharmacist to review the creatinine, which has decreased >30%. Alk phos wasnot drawn. ROCK TOWER LOADER documented in this encounter Plan of Treatment Not on filedocumented as of this encounter Procedures Procedure Name Priority Date/Time Associated Comments Diagnosis CBC WITH DIFFERENTIAL, B Routine 01/07/2022 2:30 Results for this PM LIMEROCK TOWER LOADER procedure are i n the results section. ALANINE AMINOTRANSFERASE Routine 01/07/2022 2:30 Results for this (ALT), S/P PM LIMEROCK TOWER LOADER procedure are i n the results section. CREATININE WITH EGFR, Routine 01/07/2022 2:30 Res ults for this S/P PM LIMEROCK TOWER LOADER procedure are i n the results section. documented in this encounter Results ALT (Alanine Aminotransferase) (01/07/2022 2:30 PM LIMEROCK TOWER LOADER) P athologist Signature EXT ALT 10 4 - 35 [facility]) Specimen (Source) Anatomical Location Collection Method / Collectio n Time Received Time / Laterality Volume Blood (Blood, Venous) Laly Ward APRN, C.N.P. LAB BLOOD ADD-ON Performing Organization Address City/[facility] e [facility], [address] [place] [address] [facility]) Creatinine with Estimated GFR (01/07/2022 2:30 PM LIMEROCK TOWER LOADER) Analysis Performed At Patho logist Time Signature EXT Creatinine 0.5 0.5 - 1.5 [place] mg/dL [facility]) Specimen (Source) Anatomical Location Collection Method / Collectio n Time Received Time / Laterality Volume Blood (Blood, Venous) Narrative This result has an attachment that is no t available. Laly Ward APRN, C.N.P. LAB BLOOD ADD-ON Performing Organization Address City/[facility] Phon e Number [facility], [address] [place] [address] [phone] [facility]) (ABNORMAL) CBC with Differential, Blood (01/07/2022 2:30 PM LIMEROCK TOWER LOADER) [facility] gist Method Time Signature EXT Platelet 349 150 - 450 [facility], [facility]) EXT Eosinophils 0.28 0 - 0.5 [facility]) EXT Hemoglobin 8.7 (A) 12 - 15.5 [facility], [facility]) EXT Absolute 3.19 1.7 - 7 [place] Neutrophils [facility], [facility]) EXT White Blood 5.4 5.0 - [place] Cell (WBC) 10.0 [facility]) Specimen (Source) Anatomical Location Collection Method / Collectio n Time Received Time / Laterality Volume Blood (Blood, Venous) Narrative This result has an attachment that is no t available. Laly Ward APRN C.N.P. LAB BLOOD ADD-ON Performing Organization Address City/State/ZIP Code Phon e Number [facility], [address] [place] [address] [facility]) documented in this encounter Visit Diagnoses Not on filedocumented in this encounter Additional Health Concerns Assessment Noted Time PHQ-9 Depression Total Score: 16 02/11/2021 12:00 AM C DT documented as of this encounter Care Teams Engineer Gas Pumping Station Relationship Specialty Start Date End Date Elsewhere, Pcp PCP - General Family Medicine 12/25/21 documented as of this encounter
--- OUTSIDE RECORDS SUMMARY | 2022-11-06 15:30 | XMS_ITS | Encounter Summary ---
:1965 Author Organization [facility] Address [address] [place] [address] Care Team Providers Name Role Phone Elsewhere, Pcp Primary Care Provider Unavailable Reason for Referral Outpatient (Routine) - Closed Specialty Diagnoses / Procedures Referred By Contact Refer red To Contact Diagnoses Arthroplasty Total Shoulder Replacement Status Post Left Alfredo Herrera O.P.A.-C. [facility] Procedures DX Shoulder Left Ingrowth Series 5 Views [address] [place] [phone] Referral ID Status Reason Start Date Expiration Date Visits Requ ested Visits Authorized [id number] Closed 02/25/2022 02/25/2023 1 1 Outpatient (Routine) - Closed Specialty Diagnoses / Procedures Referred By Contact Refer red To Contact Orthopedic Surgery Diagnoses Arthroplasty Total Shoulder Replacement Status Post Left Alfredo Herrera [facility] 200 [place] [address] Referral ID Status Reason Start Date Expiration Date Visits Requ ested Visits Authorized [id number] Closed 02/25/2022 02/25/2023 1 1 Scheduling Instructions 6 wk f/u L TSA Reason for Visit Reason Comments Pre-visit Testing Orders Encounter Details Date Type Department Care Team Description 02/25/2022 Clinical Communication Department of Jam, Pre- visit Testing Orthopedic Surgery Cyrus Souza M.D. Orders in [place], [address] [place], [place] [address] [facility] [address] [place], [place] [phone] (Work) [phone] Social History Tobacco Use Types Packs/Day Years [...] you attend mormon or Patient refused 2021 druze services? Do [...] Priority Associated Diagnoses Order S [facility] Orthopedic Surgery Outpatient Referral Routine Arthroplasty To [...] as of this encounter Care Teams Inspector Plating Relationship Specialty Start Date End Date Elsewhere, Pcp PCP - General Family Medicine 12/25/21 documented as of this encounter
--- OUTSIDE RECORDS SUMMARY | 2022-11-06 15:30 | XMS_ITS | Encounter Summary ---
:1965 Author Organization [facility] Address [address] [place] [address] Care Team Providers Name Role Phone Elsewhere, Pcp Primary Care Provider Unavailable Encounter Details Date Type Department Care Team Description 01/01/2022 Clinical Communication [facility] Sapna Dodge C.Ph.T. 201 [facility] [phone] [place], [place] ([facility]) [...] you attend protestant or Patient refused 2021 pentecostalism services? Do [...] documented as of this encounter Care Teams Vending Route Driver Relationship Specialty Start Date End Date Elsewhere, Pcp PCP - General Family Medicine 12/25/21 documented as of this encounter
--- OUTSIDE RECORDS SUMMARY | 2022-11-06 15:30 | XMS_ITS | Encounter Summary ---
:1965 Author Organization [facility] Address [address] [place] [address] Care Team Providers Name Role Phone Elsewhere, Pcp Primary Care Provider Unavailable Reason for Visit Reason Comments OPAT Normal Labs Encounter Details Date Type Department Care Team Description 01/15/2022 Clinical Communication Section of Madhav Rizo (Normal Labs) Infectious Diseases M, M.P.H., in [place] [address] [facility] [address] [place] [phone] Social History Tobacco Use Types Packs/Day Years [...] attend latter day or Patient refused 2021 advent services? Do [...] Rizo M.P.H., R.N. - 01/15/2022 3:24 PM MAILER APPRENTICE OPAT NOTE Infusion Provider: Dennis [facility] Specialty Infusion Services, phone: [phone], fax: [phone] Labs and site care at [facility], phone: [phone] Antimicrobial(s) currently prescribed: See Med List Hyperlink in note Firm stop date: 02/11/22 Lab results from 01/14/2022 are viewable in the MCR record--listed as External Labs (received via fax, which has been uploaded to Document Viewer/Media) Interpretation and action: The labs were satisfactory and acceptable. No change in plan as per OPAT Practice Guideline. ER APPRENTICE documented in this encounter Plan of [...] EXT ALT 14 4 - 35 [facility] Specimen (Source) Anatomical Location Collection Method / Collectio n Time Received Time / Laterality Volume Blood (Blood, Venous) Laly Ward APRN, C.N.P. LAB BLOOD ADD-ON Performing Organization Address City/[facility]/ZIP Code Phon e Number [facility] [address] [place] [address] Creatinine with Estimated GFR (01/14/2022) athologist Signature EXT Creatinine 0.6 0.5 - 1.5 [place] mg/dL [facility] Specimen (Source) Anatomical Location Collection Method / Collectio n Time Received Time / Laterality Volume Blood (Blood, Venous) Laly Ward APRN, C.N.P. LAB BLOOD ADD-ON Performing Organization Address City/[facility]/ZIP [facility] Phon e Number [facility] [address] [place] [address] (ABNORMAL) CBC with Differential, Blood (01/14/2022) athologist Signature EXT Platelet 406 150 - 450 [place] Count [facility] EXT Hemoglobin 9 (A) 12 - 15.5 [facility] EXT Absolute 3.49 1.7 - 7 [place] Neutrophils [facility] EXT White Blood 5.7 5.0 - 10.0 [place] Cell (WBC) Count [facility] Specimen (Source) Anatomical Location Collection Method / Collectio n Time Received Time / Laterality Volume Blood (Blood, Venous) Narrative This result has an attachment that is no t available. Laly Ward APRN, C.N.P. LAB BLOOD ADD-ON Performing Organization Address City/[facility]/ZIP [facility] Phon e Number [facility] [address] [place] [address] documented in this encounter Visit Diagnoses Not on filedocumented in this encounter Additional Health Concerns Assessment Noted Time PHQ-9 Depression Total Score: 16 02/11/2021 12:00 AM C DT documented as of this encounter Care Teams Insurance Healthcare Consultant Relationship Specialty Start Date End Date Elsewhere, Pcp PCP - General Family Medicine 12/25/21 documented as of this encounter
--- OUTSIDE RECORDS SUMMARY | 2022-11-06 15:31 | XMS_ITS | Encounter Summary ---
:1965 Author Organization [facility] Address [address] [place] [address] Care Team Providers Name Role Phone Elsewhere, Pcp Primary Care Provider Unavailable Encounter Details Date Type Department Care Team Description 12/30/2021 Anesthesia Event RST SEBAS [facility]ORAN OR Clifford Young M.D. [address] [place] [phone] [address] [facility] M[facility] [address] [place] [phone] [place] [address] Anesthesia Record Procedure Summary [...] h andoff to the receiving staff during [facility] ch we 1. Identified the patient [...] Andrey Rodriguezscout anita T, (created via procedure ACID REGENERATOR, CATCHER HELPER ACID REGENERATOR, DAKOTAN A documentation); Mask Ventilation: Easy mask; [...] you attend judaism or Patient refused 2021 yarsani services? Do [...] or the highest technical, or vocational p [facility] degree you have received? Sex Assigned at Date Recorded Female 03/01/2019 10:12 AM CDT documented as of this encounter OR Notes Anesthesia Postprocedure Evaluation - Clifford Young M.D. - 12/30/2021 3:55 PM CST Patient: Angie Mosquera Procedure Summary Date: 12/30/21 Room / Location: [address] / [facility] in [place], [place] Anesthesia Start: 1250 Anesthesia Stop: 1550 [...] Post Op nausea/vomiting: none Hydration status: euvolemic MACY SPECIALIST Anesthesia Procedure Notes - Emre Rodriguez APRN, CRNA - 12/30/2021 2:29 PM PHARMACY SPECIALIST Associated Order(s): Airway Airway Date/Time: 12/30/2021 1:02 PM Performed by: Emre Rdoriguez APRN, CRNA Authorized by: Clifford Young M.D. [...] successful Airway event: no complications ATTESTATION STATEMENT MACY SPECIALIST Anesthesia Preprocedure Evaluation - Clifford Young M.D. - 12/30/2021 1:23 PM CST Preprocedure Anesthesia & H&P Assessment Procedure Summary Anesthesia Start Date/Time: 12/30/21 1250 Procedure: ARTHROPLASTY RESECTION SHOULDER. 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 Location: [address] / [facility] in [place], [place] Providers: Cyrus Polk M.D. Pertinent components [...] with patient /legal guardian or through an lure maker. Risks/Benefits/Alternatives of Blood transfusion discussed with patient / legal guardian, including an opportunity to ask questions and/or decline some or all transfusion therapies. The patient / legalguardian consented to the use of all blood products, as deemed medically necessary Approval to Proceed: approved for anesthesia MACY SPECIALIST Anesthesia Procedure Notes - Clifford Khanna M.D. - 12/30/2021 12:56 PM PHARMACY SPECIALIST Associated Order(s): Regional Block Regional Block Date/Time: [...] successful procedure Other complications: none ATTESTATION STATEMENT MACY SPECIALIST documented in this encounter Plan of Treatment Not on filedocumented as of this encounter Procedures Procedure Name Priority Date/Time Associated Comments Diagnosis LDA ANE ENDOTRACHEAL Routine 12/30/2021 1:02 PM R esults for this AIRWAY PHARMACY SPECIALIST procedure are i n the results section. MC ANE NERVE BLOCK Routine 12/30/2021 12:56 Resul ts for this WITH ULTRASOUND PM PHARMACY SPECIALIST procedure ar e in the results section. LDA ANE UPPER Routine 12/30/2021 12:56 Results fo r this EXTREMITY PNC PM PHARMACY SPECIALIST procedure are in the results section. DC US GUIDE PLC NDL Routine 12/30/2021 12:56 Resu lts for this PM PHARMACY SPECIALIST procedure are i n the results section. DC INJ ANES BRACHIAL Routine 12/30/2021 12:56 Res ults for this PLEXUS CONT W PM PHARMACY SPECIALIST procedure are in GUIDANCE the results section. documented in this encounter Results LDA ANE ENDOTRACHEAL AIRWAY (12/30/2021 1:02 PM PHARMACY SPECIALIST) Narrative Emre Rodriguez APRN, CRNA - 12/30/2021 1:02 PM PHARMACY SPECIALIST Emre Rodriguez APRN, CRNA ? 12/30/2021 ??2:30 [...] ANESTHESIA ORDERABLES DC INJ ANES BRACHIAL PLEXUS CONT W GUIDANCE, DC US GUIDE PLC NDL, LDA ANE UPPER EXTREMITY PNC, MC ANE NERVE BLOCK WITH ULTRASOUND (12/30/2021 12:56 PM PHARMACY SPECIALIST) Narrative Clifford Khanna M.D. - 12/30/2021 12:56 P M PHARMACY SPECIALIST Clifford Khanna M.D. ? 12/30/2021 12:57 PM [...] 5 % injection Given 12/30/2021 1:52 PM PHARMACY SPECIALIST 250 mL intravenous, As needed, Starting on Tue12/30/21 at 1352, Anesthesia Intra-op bupivacaine PF 0.5 % (5 mg/mL) injection Given 12/30/2021 12:45 PM PHARMACY SPECIALIST 10 mL (MARCAINE) intrathecal, As needed, Starting on Tue12/30/21 at 1245, Anesthesia Intra-op ceFAZolin injection 2,000 mg (ANCEF) Given 12/30/2021 2:19 PM PHARMACY SPECIALIST 2 g 2,000 mg (rounded from 1,747.5 [...] dexAMETHasone injection (DECADRON) Given 12/30/2021 1:09 PM PHARMACY SPECIALIST 8 mg intravenous, As needed, Starting on Tue12/30/21 at 1309, Anesthesia Intra-op diphenhydrAMINE injection (BENADRYL) Given 12/30/2021 1:32 PM PHARMACY SPECIALIST 12.5 mg intravenous, As needed, Starting on Tue12/30/21 at 1332, Anesthesia Intra-op ePHEDrine (PF) injection Given 12/30/2021 1:58 PM PHARMACY SPECIALIST 10 mg intravenous, As needed, Starting on Tue12/30/21 at 1346, Anesthesia Intra-op Given 12/30/2021 1:46 PM PHARMACY SPECIALIST 5 mg Given 12/30/2021 1:24 PM PHARMACY SPECIALIST 10 mg fentaNYL injection (SUBLIMAZE) Given 12/30/2021 3:12 PM PHARMACY SPECIALIST 50 mcg intravenous, As needed, Starting on Tue12/30/21 at 1512, Anesthesia Intra-op ketamine injection (KETALAR) Given 12/30/2021 2:43 PM PHARMACY SPECIALIST 20 mg intravenous, As needed, Starting on Tue12/30/21 at 1443, Anesthesia Intra-op lactated ringers New Bag 12/30/2021 12:53 PM PHARMACY SPECIALIST intravenous, Continuous Infusion: Per Instructions PRN, Starting on Tue12/30/21 at 1253, Anesthesia Intra-op ondansetron (PF) injection (ZOFRAN) Given 12/30/2021 3:00 PM PHARMACY SPECIALIST 4 mg intravenous, As needed, Starting on Tue12/30/21 at 1500, Anesthesia Intra-op phenylephrine 80 mcg/mL in Rate/Dose 12/30/2021 3:00 0.4 mcg/kg/min 20.97 NaCl 0.9% 250 mL infusion Change PM PHARMACY SPECIALIST mL/hr intravenous, Continuous Infusion: Per Instructions PRN, Starting on Tue12/30/21 at 1404, Anesthesia Intra-op Rate/Dose Change 12/30/2021 2:36 PM PHARMACY SPECIALIST 0.3 mcg/kg/min 15.728 mL/hr Rate/Dose Change 12/30/2021 2:25 PM PHARMACY SPECIALIST 0.25 mcg/kg/min 13.106 mL/h r phenylephrine injection Given 12/30/2021 2:31 PM PHARMACY SPECIALIST 100 mcg intravenous, As needed, Starting on Tue12/30/21 at 1346, Anesthesia Intra-op Given 12/30/2021 2:12 PM PHARMACY SPECIALIST 100 mcg Given 12/30/2021 2:10 PM PHARMACY SPECIALIST 100 mcg propofol 10 mg/mL infusion New Bag 12/30/2021 1:15 50 mcg/kg/min 2 0.97 mL/hr (DIPRIVAN) PM PHARMACY SPECIALIST intravenous, Continuous Infusion: Per Instructions PRN, Starting on Tue12/30/21 at 1315, Anesthesia Intra-op New Bag 12/30/2021 1:09 PM PHARMACY SPECIALIST 50 mcg/kg/min 20.97 mL/hr propofoL injection (DIPRIVAN) Given 12/30/2021 12:59 PM PHARMACY SPECIALIST 140 mg intravenous, As needed, Starting on Tue12/30/21 at 1259, Anesthesia Intra-op rocuronium injection (ZEMURON) Given 12/30/2021 1:12 PM PHARMACY SPECIALIST 10 mg intravenous, As needed, Starting on Tue12/30/21 at 1301, Anesthesia Intra-op Given 12/30/2021 1:01 PM PHARMACY SPECIALIST 50 mg sugammadex injection (BRIDION) Given 12/30/2021 3:14 PM PHARMACY SPECIALIST 139.8 mg intravenous, As needed, Starting on [...] as of this encounter Care Teams Inspector Rubber Stamp Die Relationship Specialty Start Date End Date Elsewhere, Pcp PCP - General Family Medicine 12/25/21 documented as of this encounter
--- OUTSIDE RECORDS SUMMARY | 2022-11-06 15:31 | XMS_ITS | Encounter Summary ---
:1965 Author Organization [facility] Address [address] [place] [address] Care Team Providers Name Role Phone Elsewhere, Pcp Primary Care Provider Unavailable Encounter Details Date Type Department Care Team Description 01/01/2022 Episode Changes Section of Infectious [facility] in [place], (Work ) [place] [address] [place] [address] Social History Tobacco Use Types Packs/Day [...] you attend synagogue or Patient refused 2021 zoroastrianism services? Do [...] documented as of this encounter Care Teams Catering Manager Relationship Specialty Start Date End Date Elsewhere, Pcp PCP - General Family Medicine 12/25/21 documented as of this encounter
--- OUTSIDE RECORDS SUMMARY | 2022-11-06 15:31 | XMS_ITS | Encounter Summary ---
:1965 Author Organization [facility] Address [address] [place] [address] Care Team Providers Name Role Phone Elsewhere, Pcp Primary Care Provider Unavailable Encounter Details Date Type Department Care Team Description 12/29/2021 Hospital Encounter Department of Alfredo Herrera Preoper ative Exam; Laboratory Medicine A, O.P.A.-C. Painful Total Joint Arthroplasty Initial (HCC) and Pathology, [address] [place] [address], in [facility] [address] [place] [phone] [place] [address] (Work) [place], [place] [phone] (Fax) [phone] Social History Tobacco Use Types Packs/Day Years [...] you attend mormonism or Patient refused 2021 yarsani services? Do [...] THC multivit-min/iron/folic/ Take 1 tablet by 0 qrm100 (HAIR, SKIN AND mouth daily. NAILS ADVANCED [...] 12/29/2021 11:34 Results for this RBC AM PHYSICAL DIRECTOR procedure are i n the results section. CBC WITH Routine 12/29/2021 11:34 Preoperative Ex am Results for this DIFFERENTIAL, B AM PHYSICAL DIRECTOR Painful Total Joint proce dure are in Arthroplasty Initial the res ults (HCC) section. TYPE AND SCREEN Routine 12/29/2021 11:34 Preoperative Ex am Results for this AM PHYSICAL DIRECTOR Painful Total Joint procedur e are in Arthroplasty Initial the res ults (HCC) section. BASIC METABOLIC Routine 12/29/2021 11:34 Preoperative Ex am Results for this PANEL, S/P AM PHYSICAL DIRECTOR Painful Total Joint procedur e are in Arthroplasty Initial the res ults (HCC) section. documented in this encounter Results Antibody Screen, RBC (12/29/2021 11:34 AM PHYSICAL DIRECTOR) athologist Signature Antibody Negative Negative 12/29/2021 DTL Screen 12:59 PM PHYSICAL DIRECTOR Specimen Anatomical Collection Method Collection Time Receive d Time (Source) Location / / Volume Laterality Blood 12/29/2021 11:34 12/29/2021 AM PHYSICAL DIRECTOR 11:58 AM PHYSICAL DIRECTOR Alfredo Kamara LAB BLOOD BANK TEST ORDERABL ES Performing Organization Address City/State/ZIP Code Phon e Number [facility] - [address] [place], [place] [address] [place] [address] Laboratories-[facility] [address] (ABNORMAL) Basic Metabolic Panel (12/29/2021 11:34 AM PHYSICAL DIRECTOR) [facility] Potassium, S 4.7 3.6 - 5.2 12/29/2021 DTL mmol/L 12:38 PM PHYSICAL DIRECTOR Sodium, S 143 135 - 145 12/29/2021 DTL mmol/L 12:38 PM PHYSICAL DIRECTOR Chloride, S 108 (H) 98 - 107 12/29/2021 DTL mmol/L 12:38 PM PHYSICAL DIRECTOR Bicarbonate, S 24 22 - 29 12/29/2021 DTL mmol/L 12:38 PM PHYSICAL DIRECTOR Anion Gap 11 7 - 15 12/29/2021 DTL 12:38 PM PHYSICAL DIRECTOR BUN (Blood Urea 15 6 - 21 12/29/2021 DTL Nitrogen), S mg/dL 12:38 PM PHYSICAL DIRECTOR Creatinine 0.83 0.59 - 12/29/2021 DTL 1.04 mg/dL 12:38 PM PHYSICAL DIRECTOR eGFR-Non 78 >=60 12/29/2021 DTL Black/ mL/min/BSA 12:38 PM PHYSICAL DIRECTOR Turkmen Comment: ----ADDITIONAL INFORMATION---- Estimated GFR calculated using the 2009 CKD_EPI creatinine equation. eGFR-Black/ 90 >=60 mL/min/BSA 2021 12:38 PM PHYSICAL DIRECTOR DTL Comment: ----ADDITIONAL INFORMATION---- Estimated GFR calculated using the 2009 CKD_EPI creatinine equation. Calcium, Total, S 9.1 8.6 - 10.0 mg/dL 12/29/2021 12:3 8 PM PHYSICAL DIRECTOR DTL Glucose, S 90 70 - 140 mg/dL 12/29/2021 12:38 PM PHYSICAL DIRECTOR DTL Specimen Anatomical Collection Method Collection Time Receive d Time (Source) Location / / Volume Laterality Blood (Blood, 12/29/2021 11:34 12/29/2021 Venous) AM PHYSICAL DIRECTOR 12:13 PM PHYSICAL DIRECTOR Alfredo Kamara LAB BLOOD ADD-ON Performing Organization Address City/[facility]/ZIP [facility] Phon e Number [facility] - [address] [place] [address] [place] [address] [facility] 200 [facility] Type and Screen (with reflex Antibody ID) (12/29/2021 11:34 AM PHYSICAL DIRECTOR) [facility] Method Time Signature ABORh A Neg Not applicable 12/29/2021 ETRM 12:59 PM PHYSICAL DIRECTOR Antibody CANCELED 12/29/2021 ETRM Screen 12:59 PM PHYSICAL DIRECTOR Comment: Result canceled by the ancillar y. Type & Screen Expiration 02/26/2022 23:59 12/29/19 22 12:59 PM PHYSICAL DIRECTOR ETRM Testing Location [place] DEFAULT 12/29/2021 11:58 AM PHYSICAL DIRECTOR ETRM Specimen Anatomical Collection Method Collection Time Receive d Time (Source) Location / / Volume Laterality Blood (Blood, 12/29/2021 11:34 12/29/2021 Venous) AM PHYSICAL DIRECTOR 11:58 AM PHYSICAL DIRECTOR Alfredo Kamara LAB BLOOD BANK TEST ORDERABL ES Performing Organization Address [facility] Phon e Number [facility] - [address] [place] [address] [facility] [place] [address] Laboratories-[address] (ABNORMAL) CBC with Differential, Blood (12/29/2021 11:34 AM PHYSICAL DIRECTOR) [facility] Method Time Signature Hemoglobin 11.2 (L) 11.6 - 12/29/2021 DTL 15.0 g/dL 12:02 PM PHYSICAL DIRECTOR Hematocrit 34.1 (L) 35.5 - 12/29/2021 DTL 44.9 % 12:02 PM PHYSICAL DIRECTOR Erythrocytes 4.04 3.92 - 12/29/2021 DTL 5.13 12:02 PM PHYSICAL DIRECTOR x10(12)/L MCV 84.4 78.2 - 12/29/2021 DTL 97.9 fL 12:02 PM PHYSICAL DIRECTOR RBC Distrib Width 20.2 (H) 12.2 - 12/29/2021 DTL 16.1 % 12:02 PM PHYSICAL DIRECTOR Platelet Count 324 157 - 371 12/29/2021 DTL x10(9)/L 12:02 PM PHYSICAL DIRECTOR Leukocytes 5.1 3.4 - 9.6 12/29/2021 DTL x10(9)/L 12:02 PM PHYSICAL DIRECTOR Neutrophils 3.08 1.56 - 12/29/2021 DTL 6.45 12:02 PM PHYSICAL DIRECTOR x10(9)/L Lymphocytes 1.39 0.95 - 12/29/2021 DTL 3.07 12:02 PM PHYSICAL DIRECTOR x10(9)/L Monocytes 0.43 0.26 - 12/29/2021 DTL 0.81 12:02 PM PHYSICAL DIRECTOR x10(9)/L Eosinophils 0.17 0.03 - 12/29/2021 DTL 0.48 12:02 PM PHYSICAL DIRECTOR x10(9)/L Basophils 0.05 0.01 - 12/29/2021 DTL 0.08 12:02 PM PHYSICAL DIRECTOR x10(9)/L Specimen Anatomical Collection Method Collection Time Receive d Time (Source) Location / / Volume Laterality Blood (Blood, 12/29/2021 11:34 12/29/2021 Venous) AM PHYSICAL DIRECTOR 11:54 AM PHYSICAL DIRECTOR Alfredo Kamara LAB BLOOD ADD-ON Performing Organization Address City/State/ZIP Code Phon e Number [facility] - [address] [place], [place] [address] [place] [address] [facility] [address] documented in this encounter Visit Diagnoses Diagnosis Preoperative Exam Painful Total Joint Arthroplasty Initial (HCC) documented in this encounter Additional Health Concerns Assessment Noted Time PHQ-9 Depression Total Score: 16 02/11/2021 12:00 AM C DT documented as of this encounter Care Teams Back Shoe Operator Relationship Specialty Start Date End Date Elsewhere, Pcp PCP - General Family Medicine 12/25/21 documented as of this encounter
--- OUTSIDE RECORDS SUMMARY | 2022-11-06 15:31 | XMS_ITS | Encounter Summary ---
:1965 Author Organization [facility] Address [address] [place] [address] Care Team Providers Name Role Phone Elsewhere, Pcp Primary Care Provider Unavailable Encounter Details Date Type Department Care Team Description 12/30/2021 Surgery RST SEBAS MORAN OR Cyrus Polk, ARTHROPLASTY RESECTION [address] [facility] [address] [address] [facility] [phone] [place] [address] Social History Tobacco Use Types Packs/Day Years [...] or the highest technical, or vocational p [employer] degree you have received? Sex Assigned at Date Recorded Female 03/01/2019 10:12 AM CDT documented as of this encounter Last Filed Vital Signs Vital Sign Reading Time Taken Comments Blood Pressure 119/74 12/30/2021 12:47 PM PICKER AND PACKER Pulse 79 12/30/2021 12:47 PM PICKER AND PACKER Temperature 36.8 ??C (98.2 ??F) 12/30/2021 11:22 AM PICKER AND PACKER Respiratory Rate 20 12/30/2021 12:47 PM PICKER AND PACKER Oxygen Saturation 99% 12/30/2021 12:47 PM PICKER AND PACKER Inhaled Oxygen Concentration - - Weight 69.9 kg (154 lb 1.6 12/30/2021 11:22 AM oz) PICKER AND PACKER Height 150.5 cm (4' 11.25) 12/30/2021 11:22 AM no shoe s/boots PICKER AND PACKER Body Mass Index 30.86 12/30/2021 11:22 AM PICKER AND PACKER documented in this encounter Discharge Summaries Dario Carrera M.D. - 01/01/2022 8:50 AM CST DISCHARGE SUMMARY BRIEF OVERVIEW Hospital: [facility] Discharge Provider: Cyrus Polk M.D. Primary [...] were provided to the patient and caregiver(s). ER AND PACKER documented in this encounter Discharge Instructions AttachmentsThe following attachments cannot be sent through Care Everywhere. Continuous Nerve-Block Infusion System: Often called a ???pain pump?? (Tuvaluan) documented in this encounter Medications at Time [...] THC multivit-min/iron/folic/ Take 1 tablet by 0 [id number] (HAIR, SKIN AND mouth daily. NAILS ADVANCED [...] mask during therapy session: no Outcome Measures [facility] Inpatient Short Form: -[facility] Basic Mobility (V.2) How much [...] CENTER Basic Mobility (V.2) Raw Score: 23 AM-[facility] Basic Mobility (V.2) Standardized Score: 50.88 Interpretation: Clinicians answer the -[facility] [...] quad cane since it is not available the [facility] by prescription. Barriers to Discharge Home: [...] (min): 23 min Ruth Gonzalez P.T., D.P.T. ER AND PACKER Elvira Duncan, RBetsy - 01/01/2022 3:21 PM [...] educational pamphlet Continuous Nerve-Block Infusion System ( [id number]).?? Discussed at home removal of nervecatheter, signs of toxicity, and provided the 20/06 number to call with questions.?? All questions answered. On-Q infusion will end Wednesday 01/03 at 2230. Informed patient she may wait until Tuesday morning to remove if she is sleeping. Note OnQ will not be empty as running at 6ml/hr with fill of 550cc. She is aware of this. ER AND PACKER Thao You L.I.C.SBrittonWBritton, M.S.W. - 01/01/2022 11:23 AM CST SUBJECTIVE Referral Data The patient was seen for ongoing discharge needs. A list of infusion options (that patient/family geographically resides or requests) has been provided to and reviewed with patient/family. Disclaimers: Financial disclosure provided informing patient of our ownership and financial relationship of the [facility]home health & hospice agencies. Reviewed insurance coverage, [...] Critical access hospital Infusion and IV Therapy [address], [place] [address] [phone] -- Contact: Intake NURSING: - Adjust the [...] draws will be managed by Outpatient Facility: [facility] Address: [address] [place] [address] Contact: Princess Jimenez will provide IV access [...] continue to follow. Joe Ervin, M.S.W. 01/01/2022 ER AND PACKER Gucci Salvador M.D. - 01/01/2022 10:45 AM CST DEMOGRAPHIC INFORMATION [facility] Number:[id number] Patient Name: Angie Mosquera Service: Orthopedics Infectious Disease Consultation Service Note Type: Supervisory note Patient seen and examined, reviewed the electronic medical record, and discussed in patient's clinical course at ID morning rounds. I agree with the assessment and recommendations as outlined in the associated note by Jose Guadalupe Nxion M.D dated 01/01/22. ID is continuing to [...] questions answered to patient's satisfaction. Please page [phone] for questions. 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 [id number] Pamela Leonard PharmBrittonDBritton, R.Ph. - 01/01/2022 10:14 [...] on post-operative opioids Pamela Crawford PharmAlejandrina, R.Ph. [phone] Jose Guadalupe [place] M.D. - 01/01/2022 8:31 [...] Date/Time Bacteria / Camelia Culture, Blood #2 [[id number]] Collected: 12/31/21 1604 Lab Status: In process Specimen: Blood, Peripheral Draw Updated: 12/31/211650 Narrative: Received Bactec aerobic and Bactec anaerobic bottles Specimen Information: Specimen ID: [id number] Specimen Source: Blood, Peripheral Draw Specimen Comment: Specimen Source Site: Blood Specimen Collection Start Date: 12/31/2021 4:05 PM Specimen Received Date: 12/31/2021 4:51 PM Specimen ID: [id number] Specimen Source: Blood, Peripheral Draw Specimen Comment: Specimen Source Site: Blood Specimen Collection Start Date: 12/31/2021 4:05 PM Specimen Received Date: 12/31/2021 4:51 PM Specimen ID: [id number] Specimen Source: Blood, Peripheral Draw Specimen Comment: Specimen Source Site: Blood Specimen Collection Start Date: 12/31/2021 4:04 PM Specimen Received Date: 12/31/2021 4:51 PM Bacteria / Camelia Culture, Blood #1 [[id number]] Collected: 12/31/21 1552 Lab Status: In process Specimen: Blood, Peripheral Draw Updated: 12/31/21 1651 Narrative: Received Bactec aerobic and Bactec anaerobic bottles Specimen Information: Specimen ID: [id number] Specimen Source: Blood, Peripheral Draw Specimen Comment: Specimen Source Site: Blood Specimen Collection Start Date: 12/31/2021 3:52 PM Specimen Received Date: 12/31/2021 4:50 PM Specimen ID: [id number] Specimen Source: Blood, Peripheral Draw Specimen Comment: Specimen Source Site: Blood Specimen Collection Start Date: 12/31/2021 3:53 PM Specimen Received Date: 12/31/2021 4:50 PM Specimen ID: [id number] Specimen Source: Blood, Peripheral Draw Specimen Comment: Specimen Source Site: Blood Specimen Collection Start Date: 12/31/2021 3:53 PM Specimen Received Date: 12/31/2021 4:50 PM Bacteria Cult, Aerobe / Anaerobe+Susc [[id number]] Collected: 12/30/21 1411 Lab Status: Preliminary result Specimen: Shoulder, Left Updated: 12/31/21 1601 Bacteria Cult, Aerobe/Anaerobe+Susc No growth to date. Narrative: Bacterial Culture: Placed in Bactec aerobic and Bactec anaerobic bottles Bacteria Cult, Aerobe / Anaerobe+Susc [[id number]] Collected: 12/30/21 1405 Lab Status: Preliminary result Specimen: Synovial Fluid, Left Shoulder Updated: 12/31/21 1601 Bacteria Cult, Aerobe/Anaerobe+Susc No growth to date. Narrative: Bacterial Culture: Placed in Bactec aerobic and Bactec anaerobic bottles Bacteria Cult, Aerobe / Anaerobe+Susc [[id number]] Collected: 12/30/21 1404 Lab Status: Preliminary result Specimen: Shoulder, Left Updated: 12/31/21 1601 Bacteria Cult, Aerobe/Anaerobe+Susc No growth to date. Narrative: Bacterial Culture: Placed in Bactec aerobic and Bactec anaerobic bottles Bacteria Cult, Aerobe / Anaerobe+Susc [[id number]] Collected: 12/30/21 1403 Lab Status: Preliminary result Specimen: Shoulder, Left Updated: 12/31/21 1601 Bacteria Cult, Aerobe/Anaerobe+Susc No growth to date. Narrative: Bacterial Culture: Placed in Bactec aerobic and Bactec anaerobic bottles Bacteria Cult, Aerobe / Anaerobe+Susc [[id number]] Collected: 12/30/21 1403 Lab Status: Preliminary result Specimen: Shoulder, Left Updated: 12/31/21 1601 Bacteria Cult, Aerobe/Anaerobe+Susc No growth to date. Narrative: Bacterial Culture: Placed in Bactec aerobic and Bactec anaerobic bottles SARS Coronavirus 2, Molecular Detection, PCR, Varies Asymptomatic [[id number]] Collected: 12/29/21 1111 Lab Status: Final result [...] INFORMATION---- This RT-PCR test using the [employer] SARS-CoV-2 Assay ( Supremex) performed on the [employer] Two Module System has received Emergency Use Authorization (EUA) by the U.S. Food and Drug Administration, and is modified from the frame bander's instructions with a bridging study. Performance characteristics were verified by [facility] in a manner consistent with CLIA requirements. Visit the CDC website: https://www.cdc.gov/coronavirus/ for the most recent guidelines on Coronavirus testing. Fact Sheet for Healthcare Providers: https://www.fda.gov/media/646014/download Fact Sheet for Patients: https://www.fda.gov/media/827684/download ASSESSMENT / PLAN 56-year-old female with a [...] is consistent with aspiration results from original [facility] evaluation which is likely title insurance sales representative of the culprit organism causing [...] of Infectious Diseases OPAT monitoring program at [phone] after dismissal. Primary service to follow labs while patient is hospitalized. [facility] pharmacist to adjust dosing after dismissal 4. [...] Please page Ortho C-ID service pager at [phone] with any questions. ?? Jose Guadalupe Nixon [...] - Date/Time Bacteria Cult, Aerobe / Anaerobe+Susc [[id number]] Collected: 12/30/21 1411 Lab Status: In process Specimen: Shoulder, Left Updated: 12/30/21 1540 Narrative: Bacterial Culture: Placed in Bactec aerobic and Bactec anaerobic bottles Bacteria Cult, Aerobe / Anaerobe+Susc [[id number]] Collected: 12/30/21 1405 Lab Status: In process Specimen: Synovial Fluid, Left Shoulder Updated: 12/30/21 1519 Narrative: Bacterial Culture: Placed in Bactec aerobic and Bactec anaerobic bottles Bacteria Cult, Aerobe / Anaerobe+Susc [[id number]] Collected: 12/30/21 1404 Lab Status: In process Specimen: Shoulder, Left Updated: 12/30/21 1536 Narrative: Bacterial Culture: Placed in Bactec aerobic and Bactec anaerobic bottles Bacteria Cult, Aerobe / Anaerobe+Susc [[id number]] Collected: 12/30/21 1403 Lab Status: In process Specimen: Shoulder, Left Updated: 12/30/21 1533 Narrative: Bacterial Culture: Placed in Bactec aerobic and Bactec anaerobic bottles Bacteria Cult, Aerobe / Anaerobe+Susc [[id number]] Collected: 12/30/21 1403 Lab Status: In process Specimen: Shoulder, Left Updated: 12/30/21 1538 Narrative: Bacterial Culture: Placed in Bactec aerobic and Bactec anaerobic bottles SARS Coronavirus 2, Molecular Detection, PCR, Varies Asymptomatic [[id number]] Collected: 12/29/21 1111 Lab Status: Final result [...] INFORMATION---- This RT-PCR test using the [employer] SARS-CoV-2 Assay ( [employer]af.) performed on the [employer] Two Module System has received Emergency Use Authorization (EUA) by the U.S. Food and Drug Administration, and is modified from the frame bander's instructions with a bridging study. Performance characteristics were verified by [facility] in a manner consistent with CLIA requirements. Visit the CDC website: https://www.cdc.gov/coronavirus/ for the most recent guidelines on Coronavirus testing. Fact Sheet for Healthcare Providers: https://www.fda.gov/media/118336/download Fact Sheet for Patients: https://www.fda.gov/media/990416/download ASSESSMENT / PLAN IMPRESSION/REPORT/PLAN #1 Status post [...] House at [facility] [phone] ER AND PACKER Abrahan Rdz R.N. - 12/31/2021 7:34 AM [...] with onq pump later today or tomorrow ER AND PACKER Jey Matos D.O. - 12/31/2021 6:53 AM [...] - Date/Time Bacteria Cult, Aerobe / Anaerobe+Susc [[id number]] Collected: 12/30/21 1411 Lab Status: In process Specimen: Shoulder, Left Updated: 12/30/21 1540 Narrative: Bacterial Culture: Placed in Bactec aerobic and Bactec anaerobic bottles Bacteria Cult, Aerobe / Anaerobe+Susc [[id number]] Collected: 12/30/21 1405 Lab Status: In process Specimen: Synovial Fluid, Left Shoulder Updated: 12/30/21 1519 Narrative: Bacterial Culture: Placed in Bactec aerobic and Bactec anaerobic bottles Bacteria Cult, Aerobe / Anaerobe+Susc [[id number]] Collected: 12/30/21 1404 Lab Status: In process Specimen: Shoulder, Left Updated: 12/30/21 1536 Narrative: Bacterial Culture: Placed in Bactec aerobic and Bactec anaerobic bottles Bacteria Cult, Aerobe / Anaerobe+Susc [[id number]] Collected: 12/30/21 1403 Lab Status: In process Specimen: Shoulder, Left Updated: 12/30/21 1533 Narrative: Bacterial Culture: Placed in Bactec aerobic and Bactec anaerobic bottles Bacteria Cult, Aerobe / Anaerobe+Susc [[id number]] Collected: 12/30/21 1403 Lab Status: In process Specimen: Shoulder, Left Updated: 12/30/21 1538 Narrative: Bacterial Culture: Placed in Bactec aerobic and Bactec anaerobic bottles SARS Coronavirus 2, Molecular Detection, PCR, Varies Asymptomatic [[id number]] Collected: 12/29/21 1111 Lab Status: Final result [...] INFORMATION---- This RT-PCR test using the [employer] SARS-CoV-2 Assay ( Supremex) performed on the [employer] Two Module System has received Emergency Use Authorization (EUA) by the U.S. Food and Drug Administration, and is modified from the frame bander's instructions with a bridging study. Performance characteristics were verified by [facility] in a manner consistent with CLIA requirements. Visit the CDC website: https://www.cdc.gov/coronavirus/ for the most recent guidelines on Coronavirus testing. Fact Sheet for Healthcare Providers: https://www.fda.gov/media/358935/download Fact Sheet for Patients: https://www.fda.gov/media/142372/download ASSESSMENT / PLAN IMPRESSION/REPORT/PLAN #1 Status post [...] Jey Matos, DO Shoulder & Elbow Fellow [facility] Orthopaedic Surgery For any questions or concerns from 6 am until 6 pm, please page Jam service For urgent matters from 6 pm until 6 am, please page Ortho House at [facility] [phone] ER AND PACKER Abrahan Rdz R.N. - 12/30/2021 4:39 PM [...] Care Plan:continue current management per plan/IPS protocol ER AND PACKER Feli Viveros, Pharm.D., R.Ph. - 12/30/2021 11:33 [...] Take 150 mg by mouth every morning. ikhdtvoksf-hgqfenqxhhiez-rpgx (ESGIC) 50-325-40 mg per tablet Past Week [...] by mouth 2 (two) times a day. ER AND PACKER documented in this encounter Procedure Notes Soraida [...] to release the adhesive from the skin. http://[employer]/products/secureportiv ER AND PACKER documented in this encounter Consult Notes Ruth Gonzalez P.T., D.P.T. - 12/31/2021 4:00 PM CST Physical Therapy Inpatient Evaluation/Treatment SUBJECTIVE Patient's Name: Angie Mosuqera Referring/Attending Provider: Cyrus Polk M.D. 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 Anxiety Generalized Disorder ??? Chronic Pain [...] (HCC) ??? Nicotine Dependence Unspecified ??? Other Feed Miller Current Drug Therapy ??? Direct Infection Of [...] Right Lives With: Alone Receives Help From: bowl attendant, Family, Friend(s) ADL Assistance: Required assistance ADL Assistance Comments: Gets help from TEACHER OF THE HANDICAPPED for her bath/shower and for her meals IADL/Homemaking Assistance: Required assistance IADL/Homemaking Assistance Comments: Gets help for housecleaning Driving: Independent Occupational Role: On disability Prior Mobility/Functional Transfers Level of [place]: Modified independent Gait Devices/Wheelchair Used: Cane Gait [...] session with call light in reach and [employer] present, all needs metand questions answered. Contact monitoring: PPE used during therapy: Therapist was wearing the following PPE throughout entire session: surgicalmask and eye protection Patient was wearing a mask during therapy session: yes, when out of room Outcome Measures AM-[facility] Inpatient Short [...] 3-5 steps with a railing?: A Lot -[facility] Basic Mobility (V.2) Raw Score: 17 -[facility] Basic Mobility (V.2) Standardized Score: 39.67 Interpretation: Clinicians answer the -[facility] [...] (min): 36 min Ruth Gonzalez P.T., D.P.T. ER AND PACKER Thao You L.I.C.S.W., M.S.W. - 12/31/2021 2:04 PM CSTAssociated Order(s): IP CONSULT TO CARE MANAGEMENT; IP CONSULT TO CARE MANAGEMENT; IP CONSULT TO CARE MANAGEMENT Psychosocial Assessment SUBJECTIVE DEMOGRAPHIC INFORMATION Person(s) present during interview: Patient Primary care clinic and provider: [facility] Primary Language: Tuvaluan Legal Information: Legal decision maker for self [...] / Household Status: Patient resides alone in [place], [place]. She lives in a two bedroom apartment. Patient has four adultchildren two of whom live in [place]. Patient son Rafal lives next door to patient. Support Systems: Family members, Friends/neighbors. We have not received permission to contact them. Primary caregiver: Self Accompanied by/Relationship: None Support System: Family members, Friends/neighbors Spirituality / Presybeterian / Culture: , None History: No Education: High school Employment: Disabled Psychosocial Risk Factors impacting the patient: Resides alone, mental health issues Abuse, Neglect, Maltreatment, Trauma: Current: None reported. Past: None reported. ENVIRONMENTAL SUPPORTS Current Living Situation: Private residence Patient's Home Environment: Resides in a two bedroom apartment [address] [facility] Care Facility Name (if applicable): NA Anticipated [...] Behavior: Oriented Communication: Reads, writes and speaks Tuvaluan It is anticipated that the patient will need assistance with .Dressing,bathing, meal prep, housekeeping, shopping ASSISTIVE DEVICES Patient has the following equipment: Eyeglasses, Dentures upper, Dentures lower, cane, walker Patient anticipates potentially needing the following additional equipment: None Transportation needs: Independent to drive, support from family and friends SERVICES REQUESTED Infusion therapy FILTER BED PLACER Formal and Informal Resources: Patient receives home health aid services three times per week and group home visit one time every two weeks through [facility]. FINANCES/INSURANCE Primary insurance: MEDICARE A AND B Secondary insurance: MEDICA ADVANCE DIRECTIVES Advance Directive: Patient does not have advance directive, does not want information DISCHARGE PLANNING Patient is planning on returning home upon her discharge. She currently receives home health aid services and group home through [facility]. Patient also has support from a son [...] good support group consisting of family, friends andlolita health services through [facility]. INTERVENTIONS ?? Psychosocial assessment ?? Rapport building ?? Education on coping with chronic pain. PLAN ?? Social work will continue to follow for discharge planning and support. ?? Social work did speak with Pat at [facility] to confirm home health services. ?? Social work will work on infusion therapy referrals as well as home health/outpatient picc site care and labs. Anticipated barriers to the transition of care/plan: None Joe Ervin, M.S.W. 12/31/2021 ER AND PACKER Jose Guadalupe Nixon M.D. - 12/31/2021 7:31 [...] OSH AST. She presented to [facility] (unclear if on antibiotics) for further evaluation given persistent L shoulder pain 08/2021 prompting aspiration (09/25/21) which revealed elevated TNC (31858) with 81% PMNs with cultures positive for1 [...] debridement. The patient was subsequently admitted to [facility] for further management. Intraoperative cultures [...] - Date/Time Bacteria Cult, Aerobe / Anaerobe+Susc [[id number]] Collected: 12/30/21 1411 Lab Status: In process Specimen: Shoulder, Left Updated: 12/30/21 1540 Narrative: Bacterial Culture: Placed in Bactec aerobic and Bactec anaerobic bottles Bacteria Cult, Aerobe / Anaerobe+Susc [[id number]] Collected: 12/30/21 1405 Lab Status: In process Specimen: Synovial Fluid, Left Shoulder Updated: 12/30/21 1519 Narrative: Bacterial Culture: Placed in Bactec aerobic and Bactec anaerobic bottles Bacteria Cult, Aerobe / Anaerobe+Susc [[id number]] Collected: 12/30/21 1404 Lab Status: In process Specimen: Shoulder, Left Updated: 12/30/21 1536 Narrative: Bacterial Culture: Placed in Bactec aerobic and Bactec anaerobic bottles Bacteria Cult, Aerobe / Anaerobe+Susc [[id number]] Collected: 12/30/21 1403 Lab Status: In process Specimen: Shoulder, Left Updated: 12/30/21 1533 Narrative: Bacterial Culture: Placed in Bactec aerobic and Bactec anaerobic bottles Bacteria Cult, Aerobe / Anaerobe+Susc [[id number]] Collected: 12/30/21 1403 Lab Status: In process Specimen: Shoulder, Left Updated: 12/30/21 1538 Narrative: Bacterial Culture: Placed in Bactec aerobic and Bactec anaerobic bottles SARS Coronavirus 2, Molecular Detection, PCR, Varies Asymptomatic [[id number]] Collected: 12/29/21 1111 Lab Status: Final result [...] INFORMATION---- This RT-PCR test using the [employer] SARS-CoV-2 Assay ( Supremex) performed on the [employer] Two Module System has received Emergency Use Authorization (EUA) by the U.S. Food and Drug Administration, and is modified from the frame bander's instructions with a bridging study. Performance characteristics were verified by [facility] in a manner consistent with CLIA requirements. Visit the CDC website: https://www.cdc.gov/coronavirus/ for the most recent guidelines on Coronavirus testing. Fact Sheet for Healthcare Providers: https://www.fda.gov/media/058760/download Fact Sheet for Patients: https://www.fda.gov/media/543269/download ASSESSMENT / PLAN 56-year-old female with a [...] is consistent with aspiration results from original [facility] evaluation which is likely title insurance sales representative of the culprit organism causing [...] will follow along closely. Please page the [facility]-ID service pager at [phone] with questions. Thank you for the consultation. Jose Guadalupe Nixon M.D. ER AND PACKER Associated attestation - Gucci Savlador M.D. - 12/31/2021 6:07 PM PICKER AND PACKER DEMOGRAPHIC INFORMATION Clinic Number:[phone] Patient Name: Angie [...] prescriptions, and Oxycodone. Oxycodone filled here at [facility] pharmacy. Patient going home with an interscalene block OnQ pump. Transportation provided by her son. ER AND PACKER Fanny Sifuentes R.N. - 12/31/2021 11:00 PM [...] Nasal mucous membranes remain intact Outcome: Progressing ER AND PACKER Ezequiel Hernandez R.N. - 12/30/2021 10:27 PM [...] staff assistance to bathroom. Navin Hernandez R.N. ER AND PACKER documented in this encounter OR Notes Op Note - Cyrus Polk M.D. - 12/30/2021 2:50 PM CST STAFF: Cyrus Polk M.D. RESIDENT: Dario Carrera M.D. PRE-OPERATIVE DIAGNOSIS Left infected reverse arthroplasty. POST-OPERATIVE DIAGNOSIS Left infected reverse arthroplasty. A nurse first assist was necessary for [...] Cyrus Polk M.D. CT CT Job ID: [id number] ER AND PACKER documented in this encounter Miscellaneous Notes Hospital [...] and pain is controlled on oral medications. ER AND PACKER documented in this encounter Plan of Treatment Scheduled Referrals Name Type Priority Associated Diagnoses Order [facility] Outpatient Referral Routine Direct Infection Of Ordered: Health Referral Left Shoulder In 01/01/20 22 Infectious And Parasitic Diseases Classified Elsewhere (HCC) documented as of this encounter Procedures Procedure Name Priority Date/Time Associated Comments Diagnosis PLACE PERIPHERALLY Routine 01/01/2022 12:11 Resul ts for this INSERTED CENTRAL PM PICKER [employer] PACKER procedure a re in CATHETER (PICC) the results section. REMOTE OXIMETRY Routine 12/31/2021 5:23 MONITORING CONT. PM [employer]ER AND PACKER REMOTE OXIMETRY Routine 12/31/2021 5:23 MONITORING CONT. PM [employer]ER AND PACKER BACTERIA / CAMELIA Routine 12/31/2021 4:04 Result s for this CULTURE, BLOOD PM [employer]ACKER procedure are in the results section. BACTERIA / CAMELIA Routine 12/31/2021 3:52 Result s for this CULTURE, BLOOD PM [employer]ACKER procedure are in the results section. ADULT OXYGEN THERAPY Routine 12/31/2021 8:01 AM [employer]ER AND PACKER CBC WITH Routine 12/31/2021 4:25 Results for this DIFFERENTIAL, B AM [employer]ACKER procedure ar e in the results section. BASIC METABOLIC Routine 12/31/2021 4:25 Results f or this PANEL, S/P AM [employer]ER procedure are i n the results section. ADULT OXYGEN THERAPY Routine 12/30/2021 8:01 PM [employer] [employer] PACKER ADULT OXYGEN THERAPY Routine 12/30/2021 5:12 PM [employer]ER AND PACKER ADULT OXYGEN THERAPY Routine 12/30/2021 5:12 PM [employer]ER [employer] PACKER ADULT OXYGEN THERAPY Routine 12/30/2021 3:46 PM [employer]ER AND PACKER ADULT OXYGEN THERAPY Routine 12/30/2021 3:46 PM [employer]ER AND PACKER DX SHOULDER LEFT 1 RAD - Timed (for 12/30/2021 3:41 Re sults for this VIEW specific PM [employer]ER procedure are i n dates/times) the results section. SURGICAL PATHOLOGY, Routine 12/30/2021 2:15 Shoulder Joint Res ults for this FROZEN LAB PM [employer]ACKER Disorder Left procedure are in the results section. BACTERIA CULT, Routine 12/30/2021 2:11 Results fo r this AEROBE/ANAEROBE+SUSC PM [employer]ACKER procedu re are in the results section. BACTERIA CULT, Routine 12/30/2021 2:05 Results fo r this AEROBE/ANAEROBE+SUSC PM [employer]ER procedu re are in the results section. BACTERIA CULT, Routine 12/30/2021 2:04 Results fo r this AEROBE/ANAEROBE+SUSC PM [employer]ACKER procedu re are in the results section. BACTERIA CULT, Routine 12/30/2021 2:03 Results fo r this AEROBE/ANAEROBE+SUSC PM [employer] PACKER procedu re are in the results section. BACTERIA CULT, Routine 12/30/2021 2:03 Results fo r this AEROBE/ANAEROBE+SUSC PM [employer]ACKER procedu re are in the results section. ARTHROPLASTY 12/30/2021 12:34 Shoulder Joint RESECTION SHOULDER PM [employer]ER Disorder Left documented in this encounter Results Place peripherally inserted central catheter (PICC) (01/01/2022 12:11 PM PICKER AND PACKER) Narrative MMODAL - 01/01/2022 12:11 PM [employer]ER AND PACKER Soraida Dick R.N. ? 01/01/2022 12:13 PM [...] to release the adhesive from the skin. http://[employer]/products/secur eportiv Dario Carrera M.D. PROCEDURE/MINOR SURGICAL ORD ERABLES Performing Organization Address City/State/ZIP Code Phon e Number MMODAL MMODAL NA Bacteria / Camelia Culture, Blood #2 (12/31/2021 4:04 PM [employer]ER AND PACKER) [facility] Method Time Signature Bacteria/Valerie No growth 01/05/2022 DTL da Culture, after 5 5:02 PM [employer] P[employer]ER Blood days of incubation. Specimen (Source) Anatomical Collection Method Collection Time Re ceived Time Location / / Volume Laterality Blood (Blood, 12/31/2021 4:04 12/31/2021 4:51 Peripheral Draw) PM [employer]ER AND PACKER PM [employer]ER AND PACKER Comment: Specimen Source Site: Blood Narrative [facility] - 01/05/2022 5:02 PM PICKER AND PACKER Received Bactec aerobic and Bactec anaer obic bottles Dario Carrera M.D. LAB MICROBIOLOGY - GENERAL O PATERASARAH Performing Organization Address City/[facility]/ZIP [facility] Phon e Number [facility] - [address] [address] [address] [facility] [address] Bacteria / Camelia Culture, Blood #1 (12/31/2021 3:52 PM PICKER AND PACKER) [facility] Method Time Signature Bacteria/Valerie No growth 01/05/2022 DTL da Culture, after 5 5:02 PM [employer] PACKER Blood days of incubation. Specimen (Source) Anatomical Collection Method Collection Time Re ceived Time Location / / Volume Laterality Blood (Blood, 12/31/2021 3:52 12/31/2021 4:50 Peripheral Draw) PM [employer]ER AND PACKER PM [employer]ER AND PACKER Comment: Specimen Source Site: Blood Narrative [facility] - 01/05/2022 5:02 PM P[employer]ER AND PACKER Received Bactec aerobic and Bactec anaer obic bottles Dario Carrera M.D. LAB MICROBIOLOGY - GENERAL O PATERABLES Performing Organization Address [facility] Phon e Number [facility] - [address] [place], [place] [id number] [place] [address] (ABNORMAL) CBC with Differential, Blood (12/31/2021 4:25 AM PICKER AND PACKER) [facility] Method Time Signature Hemoglobin 8.9 (L) 11.6 - 12/31/2021 DTL 15.0 g/dL 5:15 AM P[employer]ER AND PACKER Hematocrit 27.3 (L) 35.5 - 12/31/2021 DTL 44.9 % 5:15 AM [employer]ER AND PACKER Erythrocytes 3.26 (L) 3.92 - 12/31/2021 DTL 5.13 5:15 AM PICKER AND PACKER x10(12)/L MCV 83.7 78.2 - 12/31/2021 DTL 97.9 fL 5:15 AM P[employer]ER AND PACKER RBC Distrib Width 19.6 (H) 12.2 - 12/31/2021 DTL 16.1 % 5:15 AM [employer]ER AND PACKER Platelet Count 274 157 - 371 12/31/2021 DTL x10(9)/L 5:15 AM P[employer]ER AND PACKER Leukocytes 6.6 3.4 - 9.6 12/31/2021 DTL x10(9)/L 5:15 AM [employer]ER AND PACKER Neutrophils 4.91 1.56 - 12/31/2021 DTL 6.45 5:15 AM PICKER AND PACKER x10(9)/L Lymphocytes 1.10 0.95 - 12/31/2021 DTL 3.07 5:15 AM PICKER AND PACKER x10(9)/L Monocytes 0.61 0.26 - 12/31/2021 DTL 0.81 5:15 AM PICKER AND PACKER x10(9)/L Eosinophils <0.03 0.03 - 12/31/2021 DTL 0.48 5:15 AM PICKER AND PACKER x10(9)/L Basophils <0.03 0.01 - 12/31/2021 DTL 0.08 5:15 AM PICKER AND PACKER x10(9)/L Specimen Anatomical Collection Method Collection Time Receive d Time (Source) Location / / Volume Laterality Blood (Blood, 12/31/2021 4:25 AM 12/31/19 5:04 Venous) P[employer]ER [employer] PACKER AM [employer]ER AND PACKER Dario Carrera M.D. LAB BLOOD ADD-ON Performing Organization Address City/State/ZIP Code Phon e Number [facility] - [address] [place] [address] [address] [facility] [place] [address] [facility] 200 [facility] (ABNORMAL) Basic Metabolic Panel (12/31/2021 4:25 AM PICKER AND PACKER) P athologist Signature Potassium, S 4.4 3.6 - 5.2 12/31/2021 DTL mmol/L 5:35 AM PICKER AND PACKER Sodium, S 134 (L) 135 - 145 12/31/2021 DTL mmol/L 5:35 AM P[employer]ER AND PACKER Chloride, S 103 98 - 107 12/31/2021 DTL mmol/L 5:35 AM P[employer]ER AND PACKER Bicarbonate, S 22 22 - 29 12/31/2021 DTL mmol/L 5:35 AM P[employer]ER AND PACKER Anion Gap 9 7 - 15 12/31/2021 DTL 5:35 AM PICKER AND PACKER BUN (Blood Urea 21 6 - 21 12/31/2021 DTL Nitrogen), S mg/dL 5:35 AM P[employer]ER AND PACKER Creatinine 0.74 0.59 - 12/31/2021 DTL 1.04 mg/dL 5:35 AM P[employer]ER AND PACKER eGFR-Non 90 >=60 12/31/2021 DTL Black/ mL/min/BSA 5:35 AM PICKER AND PACKER [place] Comment: ----ADDITIONAL INFORMATION---- Estimated GFR calculated using the 2009 CKD_EPI creatinine equation. eGFR-Black/ >90 >=60 mL/min/BSA 2021 5:35 AM PICKER AND PACKER DTL Comment: ----ADDITIONAL INFORMATION---- Estimated GFR calculated using the 2009 CKD_EPI creatinine equation. Calcium, Total, S 8.7 8.6 - 10.0 mg/dL 12/31/2021 5:35 AM PICKER AND PACKER DTL Glucose, S 138 70 - 140 mg/dL 12/31/2021 5:35 AM PICKER AND PACKER D TL Specimen Anatomical Collection Method Collection Time Receive d Time (Source) Location / / Volume Laterality Blood (Blood, 12/31/2021 4:25 AM 12/31/19 5:18 Venous) PICKER AND PACKER AM PICKER AND PACKER Dario Carrera M.D. LAB BLOOD ADD-ON Performing Organization Address City/State/[facility] Code Phon e Number [facility] - [address] [place], [place] [address] [facility] [place] [place] [address] [facility] [address] DX Shoulder Left 1 View (12/30/2021 3:41 PM PICKER AND PACKER) Anatomical Region Laterality Modality Upper Extremity, Shoulder, Musculoskeletal RST LOS, Left Computed Radiography Musculoskeletal ARZ LOS, Muskuloskeletal FLA LOS Specimen (Source) Anatomical Collection Method Collection Time Re ceived Time Location / / Volume Laterality 12/30/2021 3:54 PM PICKER AND PACKER Impressions 12/30/2021 3:59 PM PICKER AND PACKER Postoperative changes of a left shoulder arthroplasty resection and placement of an antibiotic spacer. Negat lalo for postoperative purposes. Narrative 12/30/2021 3:59 PM PICKER AND PACKER EXAM: ??DX SHOULDER LEFT 1 VIEW Procedure Note Timothy Resendiz M.D. - 12/30/2021Forma tting of this note might be different from the original. EXAM: DX SHOULDER LEFT 1 VIEW IMPRESSION: Postoperative changes of a left shoulder arthroplasty resection and placement of an antibiotic spacer. Negat lalo for postoperative purposes. Dario Carrera M.D. IMG DIAGNOSTIC IMAGING [facility] Surgical Pathology, Frozen Lab (12/30/2021 2:15 PM PICKER AND PACKER) Component Value Ref Test Analysis Performed At [facility] Range Method Time Signature 01/01/2022 METH 8:22 AM PICKER AND PACKER Participated in Kelly Howard, 01/01/2022 METH the D.O.-Pathology 8:22 AM PICKER AND PACKER Interpretation Resident Report Solomon Marcum M.D. 01/01/2022 METH electronically 8:22 AM PICKER AND PACKER signed by I verify that I have examined all relevant slides/materials for the specimen(s) and rendered or confirmed the diagnosis. Frozen A. ??Synovium, left shoulder, excision: ??Synovial tissue 01/01/2022 METH Intraoperative with 8:22 AM PICKER AND PACKER Report acute inflammation (>5 neutrophils/high power field). Signed by Solomon Marcum M.D. 12/31/2021 8:17 AM Gross Description A. ??Received fresh labeled left shoulder is a 1.4 x 0.9 x 01/01/2022 METH 0.4 cm aggregate of red and campbell fibrous tissue, which is 8:22 AM PICKER AND PACKER soft. ??All submitted for frozen and permanent sections. Grossed by Nikki Gallardo. Block Summary A Left shoulder 01/01/2022 METH A1 Left shoulder-frozen 8:22 AM PICKER AND PACKER Interpretation FINAL DIAGNOSIS 01/01/2022 METH 8:22 AM PICKER AND PACKER A. ??Synovium, left shoulder, excision: ??Synovial tissue with acute inflammation (>5 neutrophils/high power field). Specimen (Source) Anatomical Collection Method Collection Time Re ceived Time Location / / Volume Laterality Tissue (Shoulder, 12/30/2021 2:15 PM Left) P[employer]ER [employer] PACKER Narrative This result has an attachment that is no t available. Cyrus Polk M.D. LAB SURG PATH ORDERABLES Performing Organization Address City/State/ZIP Code Phon e Number [facility] - [address] [place], [place] [address] [facility] [place] [place] [address] [facility] [address] Bacteria Cult, Aerobe / Anaerobe+Susc (12/30/2021 2:11 PM PICKER AND PACKER) [facility] Method Time Signature Bacteria Cult, No growth 01/13/2022 DTL Aerobe/Anaerob after 14 4:02 PM PICKER AND PACKER e+Susc days of incubation. Specimen Anatomical Collection Method Collection Time Receive d Time (Source) Location / / Volume Laterality Shoulder, Left 12/30/2021 2:11 PM 022 3:38 PICKER AND PACKER PM PICKER AND PACKER Comment: Specimen Source Site: Tissue #4 Narrative [facility] - 01/13/2022 4:02 PM PICKER AND PACKER Bacterial Culture: Placed in Bactec aero bic and Bactec anaerobic bottles Cyrus Polk M.D. LAB MICROBIOLOGY - GENERAL O RDERABLES Performing Organization Address City/State/ZIP Code Phon e Number [facility] - [facility] [address] [place], [place] [address] [facility] [place] [place] [address] [facility] [address] (ABNORMAL) Bacteria Cult, Aerobe / Anaerobe+Susc (12/30/2021 2:05 PM PICKER AND PACKER) Component Value Ref Test Analysis Performed At [facility] Method Time Signature Bacteria STAPHYLOCOCCUS EPIDERMIDIS 01/11/2022 DT L Cult, Growth after 4 days 7:55 AM PICKER AND PACKER Aerobe/Anaero (A) be+Susc Comment: Semi-Urgent Result. Semi-Urgent This is a semi-urgent result [facility] - ([facility]) [facility] Specimen Anatomical Collection Method Collection Time Receive d Time (Source) Location / / Volume Laterality Synovial Fluid, 12/30/2021 2:05 PM 2021 3:17 Left Shoulder PICKER AND PACKER PM PICKER AND PACKER Comment: Specimen Source Site: Fluid Narrative [facility] - 01/11/2022 7:55 AM PICKER AND PACKER Bacterial Culture: Placed in Bactec aero bic [...] - GENERAL O MARY Performing Organization Address City/[facility] Phon e Number [facility] - [address] [place] [address] Bacteria Cult, Aerobe / Anaerobe+Susc (12/30/2021 2:04 PM P[facility]ER AND PACKER) [facility] Method Time Signature Bacteria Cult, No growth 01/13/2022 [facility] Aerobe/Anaerob after 14 4:02 PM PICKER AND PACKER e+Susc days of incubation. Specimen Anatomical Collection Method Collection Time Receive d Time (Source) Location / / Volume Laterality Shoulder, Left 12/30/2021 2:04 PM 022 3:34 PICKER AND PACKER PM PICKER AND PACKER Comment: Specimen Source Site: Tissue #3 Narrative [facility] - 01/13/2022 4:02 PM P[employer]ER AND PACKER Bacterial Culture: Placed in Bactec aero bic and Bactec anaerobic bottles Cyrus Polk M.D. LAB MICROBIOLOGY - GENERAL O MARY Performing Organization Address City/[facility] Phon e Number [facility] - [address] Bacteria Cult, Aerobe / Anaerobe+Susc (12/30/2021 2:03 PM PICKER AND PACKER) Patholo gist Method Time Signature Bacteria Cult, No growth 01/13/2022 DTL Aerobe/Anaerob after 14 4:02 PM P[employer]ER AND PACKER e+Susc days of incubation. Specimen Anatomical Collection Method Collection Time Receive d Time (Source) Location / / Volume Laterality Shoulder, Left 12/30/2021 2:03 PM 022 3:37 PICKER AND PACKER PM PICKER AND PACKER Comment: Specimen Source Site: Tissue #2 Narrative [facility] - 01/13/2022 4:02 PM P[employer]ER AND PACKER Bacterial Culture: Placed in Bactec aero bic and Bactec anaerobic bottles Cyrus Polk M.D. LAB MICROBIOLOGY - GENERAL O MARY Performing Organization Address City/[facility] Phon e Number [facility] - [address] [address] First [facility] Bacteria Cult, Aerobe / Anaerobe+Susc (12/30/2021 2:03 PM PICKER AND PACKER) [facility] gist Method Time Signature Bacteria Cult, No growth 01/13/2022 DTL Aerobe/Anaerob after 14 4:02 PM PICKER AND PACKER e+Susc days of incubation. Specimen Anatomical Collection Method Collection Time Receive d Time (Source) Location / / Volume Laterality Shoulder, Left 12/30/2021 2:03 PM 022 3:31 PICKER AND PACKER PM PICKER AND PACKER Comment: Specimen Source Site: Tissue #1 [facility] - 01/13/2022 4:02 PM PICKER AND PACKER Bacterial Culture: Placed in Bactec aero bic and Bactec anaerobic bottles Cyrus Polk M.D. 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[facility]) - Primary Shoulder Joint Disorder Left Pain [...] tablet 1,000 mg Given 01/01/2022 11:36 AM PICKER AND PACKER 1,00 0 mg (TYLENOL) 1,000 mg, oral, Every 6 hours, First dose on Tue12/30/21 at 1800 Given 01/01/2022 6:28 AM PICKER AND PACKER 1,000 mg Given 12/31/2021 11:51 PM PICKER AND PACKER 1,000 mg albuterol nebulizer solution 2.5 mg Given 12/31/2021 4:44 PM PICKER AND PACKER 2.5 mg 2.5 mg, nebulization, Every 6 hours PRN, wheezing, Starting on Tue12/30/21 at 1711, Albuterol nebs were interchanged for albuterol/levalbuterol MDI (same frequency) atorvastatin tablet 80 mg (LIPITOR) Given 12/31/2021 8:57 PM PICKER AND PACKER 80 mg 80 mg, oral, Daily at bedtime, First dose on Tue12/30/21 at 2100 Given 12/30/2021 9:55 PM PICKER AND PACKER 80 mg benzonatate capsule 100 mg (TESSALON PER LES) Given 01/01/2022 3:10 AM PICKER AND PACKER 100 mg 100 mg, oral, 3 times daily PRN, cough, Starting on Tue12/31/21 at 1702, Swallow whole. Do NOT crush, chew or open capsule. Given 12/31/2021 5:39 PM PICKER AND PACKER 100 mg bupivacaine PF 0.2 % 550 mL in NaCl New Bag 01/01/2022 3:15 PM PICKER AND PACKER 6 mL/hr 6 mL/hr 0.9% On-Q pain pump (CB004) 6 mL/hr, nerve catheter, Continuous, Starting on Tue01/01/22 at 1500, PACU & Post-Op, Location: Nerve Catheter Location, Nerve Catheter Location: Interscalene, Device: On-Q Pump bupivacaine PF 0.2 % in Rate/Dose Verify 01/01/2022 1:00 AM PICKER AND PACKER 6 mL/ hr 6 mL/hr NaCl 0.9% 341 mL infusion (MARCAINE) 6 mL/hr, nerve catheter, Continuous, Starting on Tue12/30/21 at 1600, PACU & Post-Op, Nerve Catheter Location: Interscalene, Device: Hospital Infusion Pump Rate/Dose Verify 12/31/2021 12:11 AM PICKER AND PACKER 6 mL/hr 6 mL/hr New Bag 12/30/2021 3:49 PM PICKER AND PACKER 6 mL/hr 6 mL/hr buPROPion XL 24 hr tablet 150 mg (WELLBUTRIN Given 02/2022 8:35 AM PICKER AND PACKER 150 mg XL) 150 mg, oral, Every morning, First dose on Tue12/31/21 at 0900, Swallow whole. Do NOT crush, chew, or split tablet. Given 12/31/2021 8:16 AM PICKER AND PACKER 150 mg calcium carbonate chewable tablet Given 12/31/2021 11: 46 PM PICKER AND PACKER 400 mg of calcium 400 mg of calcium (TUMS) 400 mg of calcium, oral, Every 2 hour PRN, indigestion, Starting on Tue12/30/21 at 1711, Doses listed are in mg of elemental calcium. Take with food. 500 mg calcium carbonate contains 200 mg of elemental calcium. Given 12/31/2021 9:15 PM PICKER AND PACKER 400 mg of calcium carboxymethylcellulose 0.5 % ophthalmic Given 01/01/2022 1:15 AM PICKER AND PACKER 2 drops solution 2 drop (REFRESH PLUS) 2 drop, both eyes, 4 times daily PRN, dry eyes, Starting on Tue12/30/21 at 1711 Given 12/31/2021 12:31 PM PICKER AND PACKER 2 drops Given 12/31/2021 12:23 AM PICKER AND PACKER 2 drops cefTRIAXone in dextrose (iso-osm) IVPB New Bag 01/01/2022 2:38 PM PICKER AND PACKER 2 g 200 mL/hr 2 g (ROCEPHIN) 2 g, intravenous, at 200 mL/hr, Administer over 15 Minutes, Daily before lunch, First dose on Tue01/01/22 at 1345, Drug Monitoring Program: Pharmacist to adjust medication dosing based on indication and drug clearance factors., Indications: Bone and/or joint infection cetirizine tablet 10 mg (ZyrTEC) Given 01/01/2022 8:35 AM PICKER AND PACKER 10 mg 10 mg, oral, 2 times daily, First dose on Tue12/30/21 at 2100, Drug Monitoring Program: Pharmacist to adjust medication dosing based on indication and drug clearance factors. Given 12/31/2021 8:57 PM PICKER AND PACKER 10 mg Given 12/31/2021 8:16 AM PICKER AND PACKER 10 mg cholecalciferol (vitamin D3) tablet 25 m cg Given 01/01/2022 8:35 AM PICKER AND PACKER 25 mcg 25 mcg, oral, Daily, First dose on Tue12/31/21 at 0900, cholecalciferol (vitamin D3) orderable was interchanged for cholecalciferol (vitamin D3) tablet/capsule Given 12/31/2021 8:16 AM PICKER AND PACKER 25 mcg D5W infusion 10-250 mL/hr, intravenous, [...] 5 mg (VALIUM) Given 12/31/2021 12:31 PM PICKER AND PACKER 5 mg 5 mg, oral, 4 times daily PRN, muscle spasms, Starting on Tue12/30/21 at 2243 Given 12/31/2021 1:59 AM PICKER AND PACKER 5 mg diphenhydrAMINE capsule 25 mg (BENADRYL) 25 mg, oral, Daily PRN, itching, Starting on Tue 2 at 0854 diphenhydrAMINE capsule 75 mg (BENADRYL) Given 01/01/2022 8:49 AM PICKER AND PACKER 75 mg 75 mg, oral, Bedtime PRN, sleep, Starting on Tue12/30/21 at 1715 FLUoxetine capsule 80 mg (PROzac) Given 01/01/2022 8:34 AM PICKER AND PACKER 80 mg 80 mg, oral, Daily, First dose on Tue12/31/21 at 0900, FLUoxetine orderable was interchanged for FLUoxetine tablet/capsule Given 12/31/2021 8:16 AM PICKER AND PACKER 80 mg fluticasone furoate 100 mcg/actuation Given 01/01/2022 8:[address] 2 puffs inhaler 2 puff (ARNUITY ELLIPTA) 2 puff, inhalation, 2 times daily, First dose on Tue12/30/21 at 2100, fluticasone furoate 100 mcg was interchanged for fluticasone MDI 110 mcg Given 12/31/2021 9:04 PM PICKER AND PACKER 2 puffs Given 12/31/2021 8:17 AM PICKER AND PACKER 2 puffs gentamicin powder (for bone Given 12/30/2021 2:40 PM PICKER AND PACKER 4 vials Left Shoulder cement) As needed, Starting on Tue12/30/21 at 1440, Intra-Op heparin PF flush syringe 50-150 Units 50-150 Units, intravenous, Once as neede d, line care, 50 units (5 mL) to each lumen of non-valved catheters only, Starting on Tue01/01/22 a t 0817, For 1 dose HYDROmorphone (PF) injection 0.4 mg Given 01/01/2022 4:56 AM PICKER AND PACKER 0.4 mg (DILAUDID) 0.4 mg, intravenous, Every 2 hour PRN, severe pain or score 7-10 of 10, Starting on Tue12/30/21 at 1711, For 5 doses, May administer if pain is greater than 7 after scheduled and PRN regimen exhausted. If pain remains greater than 7, notify primary service. Given 12/31/2021 11:35 AM PICKER AND PACKER 0.4 mg Given 12/31/2021 4:14 AM PICKER AND PACKER 0.4 mg ipratropium-albuteroL 0.5-2.5 mg/3 mL nebulizer Given 01/01/2022 3:15 AM PICKER AND PACKER 3 mL solution 3 mL (DUONEB) 3 mL, nebulization, 4 times daily PRN, shortness of breath, wheezing, Starting on Tue12/30/21 at 1711 lactated ringers Rate/Dose Change 01/01/2022 1:00 AM PICKER AND PACKER 20 mL/hr 20 mL/hr 75 mL/hr, intravenous, Continuous, Starting on Tue12/30/21 at 1715, Until patient has 500cc po intake New Bag 12/31/2021 11:46 PM PICKER AND PACKER 75 mL/hr 75 mL/hr Rate/Dose Change 12/31/2021 3:55 AM PICKER AND PACKER 20 mL/hr 20 mL/hr lactated ringers Continued from OR 12/30/2021 4:00 PM PICKER AND PACKER 75 mL/hr 75 mL/hr 75 mL/hr, intravenous, Continuous, Starting on Tue12/30/21 at 1600, PACU & Post-Op lamoTRIgine tablet 200 mg (LaMICtaL) Given 01/01/2022 8:34 AM PICKER AND PACKER 200 mg 200 mg, oral, 2 times daily, First dose on Tue12/30/21 at 2100 Given 12/31/2021 8:56 PM PICKER AND PACKER 200 mg Given 12/31/2021 8:16 AM PICKER AND PACKER 200 mg methylene blue 0.5 % (5 mg/mL) Given 12/30/2021 2:39 PM PICKER AND PACKER 2 mL Left Shoulder injection As needed, [...] 10 mg (ROXICODONE) Given 01/01/2022 2:38 PM PICKER AND PACKER 10 mg 10 mg, oral, Every 3 hours PRN, severe pain or score 7-10 of 10, Starting on Tue12/31/21 at 1745 Given 01/01/2022 11:35 AM PICKER AND PACKER 10 mg Given 01/01/2022 7:07 AM PICKER AND PACKER 10 mg oxyCODONE IR tablet 5 mg (ROXICODONE) 5 mg, oral, Every 3 hours PRN, moderate pain or score 4-6 of 10, Starting on Tue12/31/21 at 1745, If patient is >75 consider changing to 2.5-5mg scale pantoprazole DR tablet 40 mg (PROTONIX) Given 01/01/2022 3:46 PM PICKER AND PACKER 40 mg 40 mg, oral, 2 times daily before breakfast and dinner, First dose on Tue12/31/21 at 0700, pantoprazole 40 mg oral twice daily was interchanged for esomeprazole 20 or 40 mg oral twice daily Swallow whole. Do NOT crush, chew, or split tablet. Given 01/01/2022 6:29 AM PICKER AND PACKER 40 mg Given 12/31/2021 4:47 PM PICKER AND PACKER 40 mg pregabalin capsule 600 mg (LYRICA) Given 01/01/2022 8:34 AM PICKER AND PACKER 600 mg 600 mg, oral, 2 times daily, First dose on Tue12/30/21 at 2100 Given 12/31/2021 8:56 PM PICKER AND PACKER 600 mg Given 12/31/2021 8:15 AM PICKER AND PACKER 600 mg QUEtiapine tablet 50 mg (SEROquel) Given 12/31/2021 8:57 PM PICKER AND PACKER 50 mg 50 mg, oral, Daily at bedtime, First dose on Tue12/30/21 at 2100 Given 12/30/2021 9:55 PM PICKER AND PACKER 50 mg sennosides-docusate sodium 8.6-50 mg per Given 01/01/2022 8:35 A M PICKER [employer] PACKER 1 tablet tablet 1 tablet (SENOKOT-S) 1 tablet, oral, 2 times daily, First dose on Tue12/30/21 at 2100, Do not give if patient has diarrhea. Given 12/31/2021 8:57 PM PICKER [employer] PACKER 1 tablet Given 12/31/2021 8:16 AM PICKER [employer] PACKER 1 tablet sodium chloride 0.9 % injection [...] injection 3 mL Given 12/31/2021 8:18 AM PICKER [employer] PACKER 3 mL 3 mL, intravenous, Every 12 hours scheduled, First dose on Tue12/30/21 at 2100, PACU & Post-Op, Peripheral Intravenous Catheter and Rapid Infusion Catheter, when no infusion to maintain patency Given 12/30/2021 9:53 PM PICKER [employer] PACKER 3 mL vancomycin powder Given 12/30/2021 2:40 PM PICKER [employer] PACKER 4 g Left Shoulder As needed, Starting on Tue12/30/21 at 1440, Intra-Op zonisamide capsule 300 mg (ZONEGRAN) Given 01/01/2022 8:35 AM PICKER [employer] PACKER 300 mg 300 mg, oral, 2 times daily, First dose on Tue12/30/21 at 2100, Swallow whole. Do NOT crush, chew or open capsule. Given 12/31/2021 8:57 PM PICKER [employer] PACKER 300 mg Given 12/31/2021 8:16 AM PICKER [employer] PACKER 300 mg documented in this encounter Active and Recently Administered Medications Times are shown in P[employer]ER [employer] PACKER. Scheduled Medication Order 12/30/2021 12/31/2021 01/01/2022 acetaminophen [...] 1419 (Given - Provider: Emre Rodriguez APRN, LICENSING COURT MAGISTRATE) 2,000 mg (rounded from 1,747.5 mg = [...] Ezequiel Hernandez R.German.) 0816 (Given - Provider: Maci Gonzalez R.N.)[id number] [...] R.N.) 0835 (Given - Provider: Corrie Toscano ReBtsy) 1 tablet, oral, 2 times daily, First [...] 1446 (Given - Provider: Emre Rodriguez APRN, LICENSING COURT MAGISTRATE)1550 (Anesthesia Volume Adjustment - Provider: Emre Rodriguez [...] PERLSHAHZAD) 1739 (Given - Provider: Fanny Sifuentes RBetsy) 0310 (Given - Provider: Viktoriya [...] mg of calcium, oral, Every 2 hour RI N, indigestion, Starting on Tue12/30/21 at 1711, [...] over 3 days 1 patch (TRANSDERM S HAND TIER) (CANCELED) 1202 (Medication Applied - Provider: Manda [...] documented as of this encounter Care Teams Modeling Agent Relationship Specialty Start Date End Date Elsewhere, Pcp PCP - General Family Medicine 12/25/21 documented as of this encounter
--- OUTSIDE RECORDS SUMMARY | 2022-11-06 15:31 | XMS_ITS | Encounter Summary ---
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 [address] [place] [phone] Referral ID Status Reason Start Date Expiration Date Visits V isits Requested Authorized [id number] Authorized 01/01/2022 01/01/2023 1 1 K HOE OPERATOR Encounter Details Date Type Department Care Team Description 12/30/2021 - Hospital Encounter [facility] Kulwant Polk M.D. [address] [place] [phone] Pain Shoulder Left (Primary Dx); 01/01/2022 Hospital, Kennedi Roa MPAS, P.A.-C. [address] [place] [phone] Shoulder Joint Disorder Left; [facility] Direct Inf ection Of Left Shoulder In Infectious And Parasitic Diseases Classified Elsewhere (HCC) Building, Eighth Floor [address] [place] [phone] Social History Tobacco Use Types Packs/Day Years [...] Comments Blood Pressure 141/91 01/01/2022 4:26 PM TRACK HOE OPERATOR Pulse 95 01/01/2022 4:26 PM TRACK HOE OPERATOR Temperature 36.8 ??C (98.2 ??F) 01/01/2022 4:26 PM TRACK HOE OPERATOR Respiratory Rate 18 01/01/2022 4:26 PM TRACK HOE OPERATOR Oxygen Saturation 93% 01/01/2022 4:26 PM TRACK HOE OPERATOR Inhaled Oxygen Concentration - - Weight 69.9 kg (154 lb 1.6 12/30/2021 11:22 AM oz) TRACK HOE OPERATOR Height 150.5 cm (4' 11.25) 12/30/2021 11:22 AM no shoe s/boots TRACK HOE OPERATOR Body Mass Index 30.86 12/30/2021 11:22 AM TRACK HOE OPERATOR documented in this encounter Discharge Summaries Dario Carrera M.D. - 01/01/2022 8:50 AM CST DISCHARGE SUMMARY BRIEF OVERVIEW Hospital: [facility] Discharge Provider: Cyrus Polk M.D. [...] RST ROEI OR DISCHARGE DISPOSITION Home-Health Care [facility] [place] [facility] [6] ACTIVE ISSUES [...] provided to the patient and caregiver(s). K HOE OPERATOR documented in this encounter Discharge Instructions AttachmentsThe following attachments cannot be sent through Care Everywhere. Continuous Nerve-Block Infusion System: Often called a ???pain pump?? (Belarusian) documented in this encounter Medications at Time [...] THC multivit-min/iron/folic/ Take 1 tablet by 0 fda508 (HAIR, SKIN AND mouth daily. NAILS ADVANCED [...] she got up for the day. K HOE OPERATOR Ruth Gonzalez P.T., D.P.T. - 01/01/2022 4:29 [...] mask during therapy session: no Outcome Measures [facility] In[facility] Form: [facility] Basic Mobility (V.2) Raw Score: 23 AM-PAC Basic Mobility (V.2) Standardized Score: 50.88 Interpretation: Clinicians answer the AM-[facility] Inpatient Short Form based [...] quad cane since it is not available [facility] by prescription. Barriers to Discharge Home: Other [...] (min): 23 min Ruth Gonzalez P.T., D.P.T. K HOE OPERATOR Elvira Duncan R.N. - 01/01/2022 3:21 [...] educational pamphlet Continuous Nerve-Block Infusion System ( [id number]).?? Discussed at home removal of nervecatheter, signs [...] our ownership and financial relationship of the [facility] beds/home health & hospice agencies. Reviewed insurance [...] Selected Services Address Phone Fax Patient Preferred [facility] Infusion [facility] IV Therapy [address], [place] [address] -- Contact: Intake NURSING: - Adjust [...] draws will be managed by Outpatient Facility: [facility] Address: [address] , [place], [place] Contact: Princess They will provide IV [...] continue to follow. Joe Ervin, M.S.WBritton 01/01/2022 K HOE OPERATOR Gucci Salvador M.D. - 01/01/2022 10:45 [...] questions answered to patient's satisfaction. Please page [phone] for questions. 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 [phone] K HOE OPERATOR Pamela Crawford, DBritton, R.Ph. - 01/01/2022 10:14 [...] on post-operative opioids Pamela Crawford PharmBrittonDBritton, R.Ph. [phone] K HOE OPERATOR Jose Guadalupe Nixon M.D. - 01/01/2022 8:31 AM CST Infectious Diseases Orthopedic Surgery [facility] Consulting Service Progress Note SUBJECTIVE -No acute [...] Date/Time Bacteria / Mandi Culture, Blood #2 [[id number]] Collected: 12/31/21 1604 Lab Status: In process Specimen: Blood, Peripheral Draw Updated: 12/31/21 1651 Narrative: Received Bactec aerobic and Bactec anaerobic bottles Specimen Information: Specimen ID: [id number] Specimen Source: Blood, Peripheral Draw Specimen Comment: Specimen Source Site: Blood Specimen Collection Start Date: 12/31/2021 4:05 PM Specimen Received Date: 12/31/2021 4:51 PM Specimen ID: [id number] Specimen Source: Blood, Peripheral Draw Specimen Comment: Specimen Source Site: Blood Specimen Collection Start Date: 12/31/2021 4:05 PM Specimen Received Date: 12/31/2021 4:51 PM Specimen ID: [id number] Specimen Source: Blood, Peripheral Draw Specimen Comment: Specimen Source Site: Blood Specimen Collection Start Date: 12/31/2021 4:04 PM Specimen Received Date: 12/31/2021 4:51 PM Bacteria / Mandi Culture, Blood #1 [[id number]] Collected: 12/31/21 1552 Lab Status: In process Specimen: Blood, Peripheral Draw Updated: 12/31/21 1651 Narrative: Received Bactec aerobic and Bactec anaerobic bottles Specimen Information: Specimen ID: [id number] Specimen Source: Blood, Peripheral Draw Specimen Comment: Specimen Source Site: Blood Specimen Collection Start Date: 12/31/2021 3:52 PM Specimen Received Date: 12/31/2021 4:50 PM Specimen ID: [id number] Specimen Source: Blood, Peripheral Draw Specimen Comment: Specimen Source Site: Blood Specimen Collection Start Date: 12/31/2021 3:53 PM Specimen Received Date: 12/31/2021 4:50 PM Specimen ID: [id number] Specimen Source: Blood, Peripheral Draw Specimen Comment: Specimen Source Site: Blood Specimen Collection Start Date: 12/31/2021 3:53 PM Specimen Received Date: 12/31/2021 4:50 PM Bacteria Cult, Aerobe / Anaerobe+Susc [[id number]] Collected: 12/30/21 1411 Lab Status: Preliminary result Specimen: Shoulder, Left Updated: 12/31/21 1601 Bacteria Cult, Aerobe/Anaerobe+Susc No growth to date. Narrative: Bacterial Culture: Placed in Bactec aerobic and Bactec anaerobic bottles Bacteria Cult, Aerobe / Anaerobe+Susc [[id number]] Collected: 12/30/21 1405 Lab Status: Preliminary result Specimen: Synovial Fluid, Left Shoulder Updated: 12/31/21 1601 Bacteria Cult, Aerobe/Anaerobe+Susc No growth to date. Narrative: Bacterial Culture: Placed in Bactec aerobic and Bactec anaerobic bottles Bacteria Cult, Aerobe / Anaerobe+Susc [[id number]] Collected: 12/30/21 1404 Lab Status: Preliminary result Specimen: Shoulder, Left Updated: 12/31/21 1601 Bacteria Cult, Aerobe/Anaerobe+Susc No growth to date. Narrative: Bacterial Culture: Placed in Bactec aerobic and Bactec anaerobic bottles Bacteria Cult, Aerobe / Anaerobe+Susc [[id number]] Collected: 12/30/21 1403 Lab Status: Preliminary result Specimen: Shoulder, Left Updated: 12/31/21 1601 Bacteria Cult, Aerobe/Anaerobe+Susc No growth to date. Narrative: Bacterial Culture: Placed in Bactec aerobic and Bactec anaerobic bottles Bacteria Cult, Aerobe / Anaerobe+Susc [[id number]] Collected: 12/30/21 1403 Lab Status: Preliminary result Specimen: Shoulder, Left Updated: 12/31/21 1601 Bacteria Cult, Aerobe/Anaerobe+Susc No growth to date. Narrative: Bacterial Culture: Placed in Bactec aerobic and Bactec anaerobic bottles SARS Coronavirus 2, Molecular Detection, PCR, Varies Asymptomatic [[id number]] Collected: 12/29/21 1111 Lab Status: Final result [...] ----ADDITIONAL INFORMATION---- This RT-PCR test using the [employer] SARS-CoV-2 Assay ( Houzz.) performed on the [employer] Two Module System has received Emergency Use Authorization (EUA) by the U.S. Food and Drug Administration, and is modified from the space buyer's instructions with a bridging study. Performance characteristics were verified by [facility] in a manner consistent with CLIA requirements. Visit the CDC website: https://www.cdc.gov/coronavirus/ for the most recent guidelines on Coronavirus testing. Fact Sheet for Healthcare Providers: https://www.fda.gov/media/587432/download Fact Sheet for Patients: https://www.fda.gov/media/941238/download ASSESSMENT / PLAN 56-year-old female with a [...] is consistent with aspiration results from original [facility] evaluation which is likely sales development representative of the culprit organism causing her [...] of Infectious Diseases OPAT monitoring program at [phone] after dismissal. Primary service to follow labs while patient is hospitalized. [place] pharmacist to adjust dosing after dismissal 4. [...] Please page Ortho C-ID service pager at [phone] with any questions. ?? Jose Guadalupe Nixon [...] - Date/Time Bacteria Cult, Aerobe / Anaerobe+Susc [[id number]] Collected: 12/30/21 1411 Lab Status: In process Specimen: Shoulder, Left Updated: 12/30/21 1540 Narrative: Bacterial Culture: Placed in Bactec aerobic and Bactec anaerobic bottles Bacteria Cult, Aerobe / Anaerobe+Susc [[id number]] Collected: 12/30/21 1405 Lab Status: In process Specimen: Synovial Fluid, Left Shoulder Updated: 12/30/21 1519 Narrative: Bacterial Culture: Placed in Bactec aerobic and Bactec anaerobic bottles Bacteria Cult, Aerobe / Anaerobe+Susc [[id number]] Collected: 12/30/21 1404 Lab Status: In process Specimen: Shoulder, Left Updated: 12/30/21 1536 Narrative: Bacterial Culture: Placed in Bactec aerobic and Bactec anaerobic bottles Bacteria Cult, Aerobe / Anaerobe+Susc [[id number]] Collected: 12/30/21 1403 Lab Status: In process Specimen: Shoulder, Left Updated: 12/30/21 1533 Narrative: Bacterial Culture: Placed in Bactec aerobic and Bactec anaerobic bottles Bacteria Cult, Aerobe / Anaerobe+Susc [[id number]] Collected: 12/30/21 1403 Lab Status: In process Specimen: Shoulder, Left Updated: 12/30/21 1538 Narrative: Bacterial Culture: Placed in Bactec aerobic and Bactec anaerobic bottles SARS Coronavirus 2, Molecular Detection, PCR, Varies Asymptomatic [[id number]] Collected: 12/29/21 1111 Lab Status: Final result [...] ----ADDITIONAL INFORMATION---- This RT-PCR test using the [employer] SARS-CoV-2 Assay ( Houzz.) performed on the [employer] Two Module System has received Emergency Use Authorization (EUA) by the U.S. Food and Drug Administration, and is modified from the space buyer's instructions with a bridging study. Performance characteristics were verified by [facility] in a manner consistent with CLIA requirements. Visit the CDC website: https://www.cdc.gov/coronavirus/ for the most recent guidelines on Coronavirus testing. Fact Sheet for Healthcare Providers: https://www.fda.gov/media/668497/download Fact Sheet for Patients: https://www.fda.gov/media/336141/download ASSESSMENT / PLAN IMPRESSION/REPORT/PLAN #1 Status post [...] at [facility] [phone] Trey Phan R.N. - 12/31/2021 7:34 AM [...] - Date/Time Bacteria Cult, Aerobe / Anaerobe+Susc [[id number]] Collected: 12/30/21 1411 Lab Status: In process Specimen: Shoulder, Left Updated: 12/30/21 1540 Narrative: Bacterial Culture: Placed in Bactec aerobic and Bactec anaerobic bottles Bacteria Cult, Aerobe / Anaerobe+Susc [[id number]] Collected: 12/30/21 1405 Lab Status: In process Specimen: Synovial Fluid, Left Shoulder Updated: 12/30/21 1519 Narrative: Bacterial Culture: Placed in Bactec aerobic and Bactec anaerobic bottles Bacteria Cult, Aerobe / Anaerobe+Susc [[id number]] Collected: 12/30/21 1404 Lab Status: In process Specimen: Shoulder, Left Updated: 12/30/21 1536 Narrative: Bacterial Culture: Placed in Bactec aerobic and Bactec anaerobic bottles Bacteria Cult, Aerobe / Anaerobe+Susc [[id number]] Collected: 12/30/21 1403 Lab Status: In process Specimen: Shoulder, Left Updated: 12/30/21 1533 Narrative: Bacterial Culture: Placed in Bactec aerobic and Bactec anaerobic bottles Bacteria Cult, Aerobe / Anaerobe+Susc [[id number]] Collected: 12/30/21 1403 Lab Status: In process Specimen: Shoulder, Left Updated: 12/30/21 1538 Narrative: Bacterial Culture: Placed in Bactec aerobic and Bactec anaerobic bottles SARS Coronavirus 2, Molecular Detection, PCR, Varies Asymptomatic [[id number]] Collected: 12/29/21 1111 Lab Status: Final result [...] ----ADDITIONAL INFORMATION---- This RT-PCR test using the [employer] SARS-CoV-2 Assay ( Houzz.) performed on the [employer] Two Module System has received Emergency Use Authorization (EUA) by the U.S. Food and Drug Administration, and is modified from the space buyer's instructions with a bridging study. Performance characteristics were verified by [facility] in a manner consistent with CLIA requirements. Visit the CDC website: https://www.cdc.gov/coronavirus/ for the most recent guidelines on Coronavirus testing. Fact Sheet for Healthcare Providers: https://www.fda.gov/media/710615/download Fact Sheet for Patients: https://www.fda.gov/media/237265/download ASSESSMENT / PLAN IMPRESSION/REPORT/PLAN #1 Status post [...] DO Shoulder & Elbow Fellow [facility] Orthopaedic Surgery For any questions or concerns from 6 am until 6 pm, please page Jam service For urgent matters from 6 pm until 6 am, please page Arthur Smallwood at [facility] [phone] K HOE OPERATOR Trey Rdz R.N. - 12/30/2021 4:39 PM [...] Plan:continue current management per plan/IPS protocol K HOE OPERATOR Feli Viveros PharmBrittonDBritton, R.Ph. - 12/30/2021 11:33 [...] and she gets her meds from a [place] dispensary. She was told to leave her [...] Take 150 mg by mouth every morning. nhrolmxqwq-iphvpwtkuhoci-eeic (ESGIC) 50-325-40 mg per tablet Past Week [...] mouth 2 (two) times a day. K HOE OPERATOR documented in this encounter Procedure Notes Soraida Dick R.N. - 01/01/2022 12:11 PM CSTAssociated Order(s): Place peripherally inserted central catheter (PICC) Place peripherally inserted central catheter (PICC) Date/Time: 01/01/2022 12:11 PM Performed by: Soraida Dick R.N. Authorized by: Draio Carrera M.D. Care team members present 1. [...] to release the adhesive from the skin. [email or web address]/[email or web address] K HOE OPERATOR documented in this encounter Consult Notes [...] (HCC) ??? Nicotine Dependence Unspecified ??? Other Fpc Current Drug Therapy ??? 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 ABDOMINOPLASTY ??? ARTHROPLASTY - RESECTION SHOULDER Left 12/30/2021 Procedure: ARTHROPLASTY RESECTION SHOULDER.; Surgeon: Cyrus Polk M.D.; Location: [facility] OR ??? BACK SURGERY 1998 lumbar fusion [...] Right Lives With: Alone Receives Help From: slide attendant, Family, Friend(s) ADL Assistance: Required assistance ADL Assistance Comments: Gets help from POLICE ACADEMY PROGRAM COORDINATOR for her bath/shower and for her meals IADL/Homemaking Assistance: Required assistance IADL/Homemaking Assistance Comments: Gets help for housecleaning Driving: Independent Occupational Role: On disability Prior Mobility/Functional Transfers Level of [place]: Modified independent Gait Devices/Wheelchair Used: Cane Gait [...] session with call light in reach and POLICE ACADEMY PROGRAM COORDINATOR present, all needs metand questions answered. Contact monitoring: PPE used during therapy: Therapist was wearing the following PPE throughout entire session: surgicalmask and eye protection Patient was wearing a mask during therapy session: yes, when out of room Outcome Measures [facility] Inpatient Short Form: -[facility] [...] 3-5 steps with a railing?: A Lot -[facility] Basic Mobility (V.2) Raw Score: 17 -[facility] Basic Mobility (V.2) Standardized Score: 39.67 Interpretation: Clinicians answer the -[facility] [...] 36 min Ruth Gonzalez P.T., D.P.T. K HOE OPERATOR Thao You L.I.C.S.W., M.S.W. - 12/31/2021 2:04 PM CSTAssociated Order(s): IP CONSULT TO CARE MANAGEMENT; IP CONSULT TO CARE MANAGEMENT; IP CONSULT TO CARE MANAGEMENT Psychosocial Assessment SUBJECTIVE DEMOGRAPHIC INFORMATION Person(s) present during interview: Patient Primary care clinic and provider: [facility] Primary Language: Belarusian Legal Information: Legal decision maker for self [...] / Household Status: Patient resides alone in [place], [place]. She lives in a two bedroom apartment. Patient has four adultchildren two of whom live in [place]. Patient son Rafal lives next door to patient. Support Systems: Family members, Friends/neighbors. We have not received permission to contact them. Primary caregiver: Self Accompanied by/Relationship: None Support System: Family members, Friends/neighbors Spirituality / Anabaptist / Culture: , None History: No Education: High school Employment: Disabled Psychosocial Risk Factors impacting the patient: Resides alone, mental health issues Abuse, Neglect, Maltreatment, Trauma: Current: None reported. Past: None reported. ENVIRONMENTAL SUPPORTS Current Living Situation: Private residence Patient's Home Environment: Resides in a two bedroom apartment on the main [facility] Care Facility Name (if applicable): [...] Behavior: Oriented Communication: Reads, writes and speaks Belarusian It is anticipated that the patient will need assistance with .Dressing,bathing, meal prep, housekeeping, shopping ASSISTIVE DEVICES Patient has the following equipment: Eyeglasses, Dentures upper, Dentures lower, cane, walker Patient anticipates potentially needing the following additional equipment: None Transportation needs: Independent to drive, support from family and friends SERVICES REQUESTED Infusion therapy DELINQUENCY COUNSELOR Formal and Informal Resources: Patient receives home health aid services three times per week and intermediate visit one time every two weeks through [facility] Services. FINANCES/INSURANCE Primary insurance: MEDICARE A AND B Secondary insurance: MEDICA ADVANCE DIRECTIVES Advance Directive: Patient does not have advance directive, does not want information DISCHARGE PLANNING Patient is planning on returning home upon her discharge. She currently receives home health aid services and intermediate through [facility]. Patient also has support from a [...] good support group consisting of family, friends and[facility] services [facility]. INTERVENTIONS ?? Psychosocial assessment ?? Rapport building ?? Education on coping with chronic pain. PLAN ?? Social work will continue to follow for discharge planning and support. ?? Social work did speak with Pat at [facility] to confirm home health services. ?? Social work will work on infusion therapy referrals as well as home health/outpatient picc site care and labs. Anticipated barriers to the transition of care/plan: None Joe Ervin, M.S.W. 12/31/2021 K HOE OPERATOR Jose Guadalupe Nixon M.D. - 12/31/2021 7:31 AM CSTAssociated Order(s): IP CONSULT TO INFECTIOUS DISEASES Infectious Diseases Orthopedic Surgery [facility] Consulting Service Consult Note SUBJECTIVE REASON FOR [...] OSH AST. She presented to [facility] (unclear if on antibiotics) for further evaluation given persistent L shoulder pain 08/2021 prompting aspiration (09/25/21) which revealed elevated TNC (95592) with 81% PMNs with cultures positive for1 [...] patient was subsequently admitted to [facility] for further management. Intraoperative cultures [...] - Date/Time Bacteria Cult, Aerobe / Anaerobe+Susc [[id number]] Collected: 12/30/21 1411 Lab Status: In process Specimen: Shoulder, Left Updated: 12/30/21 1540 Narrative: Bacterial Culture: Placed in Bactec aerobic and Bactec anaerobic bottles Bacteria Cult, Aerobe / Anaerobe+Susc [[id number]] Collected: 12/30/21 1405 Lab Status: In process Specimen: Synovial Fluid, Left Shoulder Updated: 12/30/21 1519 Narrative: Bacterial Culture: Placed in Bactec aerobic and Bactec anaerobic bottles Bacteria Cult, Aerobe / Anaerobe+Susc [[id number]] Collected: 12/30/21 1404 Lab Status: In process Specimen: Shoulder, Left Updated: 12/30/21 1536 Narrative: Bacterial Culture: Placed in Bactec aerobic and Bactec anaerobic bottles Bacteria Cult, Aerobe / Anaerobe+Susc [[id number]] Collected: 12/30/21 1403 Lab Status: In process Specimen: Shoulder, Left Updated: 12/30/21 1533 Narrative: Bacterial Culture: Placed in Bactec aerobic and Bactec anaerobic bottles Bacteria Cult, Aerobe / Anaerobe+Susc [[id number]] Collected: 12/30/21 1403 Lab Status: In process Specimen: Shoulder, Left Updated: 12/30/21 1538 Narrative: Bacterial Culture: Placed in Bactec aerobic and Bactec anaerobic bottles SARS Coronavirus 2, Molecular Detection, PCR, Varies Asymptomatic [[id number]] Collected: 12/29/21 1111 Lab Status: Final result [...] ----ADDITIONAL INFORMATION---- This RT-PCR test using the [employer] SARS-CoV-2 Assay ( [employer]zz.) performed on the [employer] Two Module System has received Emergency Use Authorization (EUA) by the U.S. Food and Drug Administration, and is modified from the space buyer's instructions with a bridging study. Performance characteristics were verified by [facility] in a manner consistent with CLIA requirements. Visit the CDC website: https://www.cdc.gov/coronavirus/ for the most recent guidelines on Coronavirus testing. Fact Sheet for Healthcare Providers: https://www.fda.gov/media/162533/download Fact Sheet for Patients: https://www.fda.gov/media/102461/download ASSESSMENT / PLAN 56-year-old female with a [...] is consistent with aspiration results from original [place] [facility] evaluation which is likely sales development representative of the culprit organism causing her [...] follow along closely. Please page the Ortho [facility] service pager at [phone] with questions. Thank you for the consultation. Jose Guadalupe Nixon M.D. K HOE OPERATOR Associated attestation - Gucci Salvador M.D. - 12/31/2021 6:07 PM TRACK HOE OPERATOR DEMOGRAPHIC INFORMATION Clinic Number:[id number] Patient Name: Angie [...] Oxycodone. Oxycodone filled here at [facility] pharmacy. Patient going home with an interscalene block OnQ pump. Transportation provided by her son. K HOE OPERATOR aFnny Sifuentes R.N. - 12/31/2021 11:00 PM CST [...] mucous membranes remain intact Outcome: Progressing K HOE OPERATOR Ezequiel Hernandez R.N. - 12/30/2021 10:27 [...] assistance to bathroom. Navin Hernandez R.N. K HOE OPERATOR documented in this encounter OR Notes [...] Cyrus Polk M.D. CT CT Job ID: [id number] K HOE OPERATOR documented in this encounter Miscellaneous Notes [...] pain is controlled on oral medications. K HOE OPERATOR documented in this encounter Plan of Treatment Scheduled Referrals Name Type Priority Associated Diagnoses Order S [facility] Outpatient Referral Routine Direct Infection Of Ordered: Health Referral Left Shoulder In 01/01/20 22 Infectious And Parasitic Diseases Classified Elsewhere (HCC) documented as of this encounter Procedures Procedure Name Priority Date/Time Associated Comments Diagnosis PLACE PERIPHERALLY Routine 01/01/2022 12:11 Resul ts for this INSERTED CENTRAL PM TRACK HOE OPERATOR procedure a re in CATHETER (PICC) the results section. REMOTE OXIMETRY Routine 12/31/2021 5:23 MONITORING CONT. PM TRACK HOE OPERATOR REMOTE OXIMETRY Routine 12/31/2021 5:23 MONITORING CONT. PM TRACK HOE OPERATOR BACTERIA / MANDI Routine 12/31/2021 4:04 Result s for this CULTURE, BLOOD PM TRACK HOE OPERATOR procedure are in the results section. BACTERIA / MANDI Routine 12/31/2021 3:52 Result s for this CULTURE, BLOOD PM TRACK HOE OPERATOR procedure are in the results section. ADULT OXYGEN THERAPY Routine 12/31/2021 8:01 AM TRACK HOE OPERATOR CBC WITH Routine 12/31/2021 4:25 Results for this DIFFERENTIAL, B AM TRACK HOE OPERATOR procedure ar e in the results section. BASIC METABOLIC Routine 12/31/2021 4:25 Results f or this PANEL, S/P AM TRACK HOE OPERATOR procedure are i n the results section. ADULT OXYGEN THERAPY Routine 12/30/2021 8:01 PM TRACK HOE OPERATOR ADULT OXYGEN THERAPY Routine 12/30/2021 5:12 PM TRACK HOE OPERATOR ADULT OXYGEN THERAPY Routine 12/30/2021 5:12 PM TRACK HOE OPERATOR ADULT OXYGEN THERAPY Routine 12/30/2021 3:46 PM TRACK HOE OPERATOR ADULT OXYGEN THERAPY Routine 12/30/2021 3:46 PM TRACK HOE OPERATOR DX SHOULDER LEFT 1 RAD - Timed (for 12/30/2021 3:41 Re sults for this VIEW specific PM TRACK HOE OPERATOR procedure are i n dates/times) the results section. SURGICAL PATHOLOGY, Routine 12/30/2021 2:15 Shoulder Joint Res ults for this FROZEN LAB PM TRACK HOE OPERATOR Disorder Left procedure are in the results section. BACTERIA CULT, Routine 12/30/2021 2:11 Results fo r this AEROBE/ANAEROBE+SUSC PM TRACK HOE OPERATOR procedu re are in the results section. BACTERIA CULT, Routine 12/30/2021 2:05 Results fo r this AEROBE/ANAEROBE+SUSC PM TRACK HOE OPERATOR procedu re are in the results section. BACTERIA CULT, Routine 12/30/2021 2:04 Results fo r this AEROBE/ANAEROBE+SUSC PM TRACK HOE OPERATOR procedu re are in the results section. BACTERIA CULT, Routine 12/30/2021 2:03 Results fo r this AEROBE/ANAEROBE+SUSC PM TRACK HOE OPERATOR procedu re are in the results section. BACTERIA CULT, Routine 12/30/2021 2:03 Results fo r this AEROBE/ANAEROBE+SUSC PM TRACK HOE OPERATOR procedu re are in the results section. ARTHROPLASTY 12/30/2021 12:34 Shoulder Joint RESECTION SHOULDER PM TRACK HOE OPERATOR Disorder Left documented in this encounter Results Place peripherally inserted central catheter (PICC) (01/01/2022 12:11 PM TRACK HOE OPERATOR) Narrative MMODAL - 01/01/2022 12:11 PM TRACK HOE OPERATOR Soraida Dick R.N. ? 01/01/2022 12:13 [...] to release the adhesive from the skin. [email or web address]/secur [email or web address] Dario Carrera M.D. PROCEDURE/MINOR SURGICAL ORD ERABLES Performing Organization Address City/[facility]/ZIP Code Phon e Number MMODAL MMODAL NA Bacteria / Mandi Culture, Blood #2 (12/31/2021 4:04 PM TRACK HOE OPERATOR) [facility] Method Time Signature Bacteria/Valerie No growth 01/05/2022 DTL da Culture, after 5 5:02 PM TRACK HOE OPERATOR Blood days of incubation. Specimen (Source) Anatomical Collection Method Collection Time Re ceived Time Location / / Volume Laterality Blood (Blood, 12/31/2021 4:04 12/31/2021 4:51 Peripheral Draw) PM TRACK HOE OPERATOR PM TRACK HOE OPERATOR Comment: Specimen Source Site: Blood Narrative [facility] - 01/05/2022 5:02 PM TRACK HOE OPERATOR Received Bactec aerobic and Bactec anaer obic bottles Dario Carrera M.D. LAB MICROBIOLOGY - GENERAL O RDERASARAH Performing Organization Address [facility] Phon e Number [facility] - [address] [place], [place] [address] [place] [address] Bacteria / Mandi Culture, Blood #1 (12/31/2021 3:52 PM TRACK HOE OPERATOR) [facility] Method Time Signature Bacteria/Valerie No growth 01/05/2022 DT da Culture, after 5 5:02 PM TRACK HOE OPERATOR Blood days of incubation. Specimen (Source) Anatomical Collection Method Collection Time Re ceived Time Location / / Volume Laterality Blood (Blood, 12/31/2021 3:52 12/31/2021 4:50 Peripheral Draw) PM TRACK HOE OPERATOR PM TRACK HOE OPERATOR Comment: Specimen Source Site: Blood Narrative [facility] - 01/05/2022 5:02 PM TRACK HOE OPERATOR Received Bactec aerobic and Bactec anaer obic bottles Dario Carrera M.D. LAB MICROBIOLOGY - GENERAL O RDERABLES Performing Organization Address City/[facility]/ZIP [facility] [place] Number [facility] - [address] [place], [place] [address] [place] [address] [facility] [address] [facility] (ABNORMAL) CBC with Differential, Blood (12/31/2021 4:25 AM TRACK HOE OPERATOR) [facility] gist Method Time Signature Hemoglobin 8.9 (L) 11.6 - 12/31/2021 DTL 15.0 g/dL 5:15 AM TRACK HOE OPERATOR Hematocrit 27.3 (L) 35.5 - 12/31/2021 DTL 44.9 % 5:15 AM TRACK HOE OPERATOR Erythrocytes 3.26 (L) 3.92 - 12/31/2021 DTL 5.13 5:15 AM TRACK HOE OPERATOR x10(12)/L MCV 83.7 78.2 - 12/31/2021 DTL 97.9 fL 5:15 AM TRACK HOE OPERATOR RBC Distrib Width 19.6 (H) 12.2 - 12/31/2021 DTL 16.1 % 5:15 AM TRACK HOE OPERATOR Platelet Count 274 157 - 371 12/31/2021 DTL x10(9)/L 5:15 AM TRACK HOE OPERATOR Leukocytes 6.6 3.4 - 9.6 12/31/2021 DTL x10(9)/L 5:15 AM TRACK HOE OPERATOR Neutrophils 4.91 1.56 - 12/31/2021 DTL 6.45 5:15 AM TRACK HOE OPERATOR x10(9)/L Lymphocytes 1.10 0.95 - 12/31/2021 DTL 3.07 5:15 AM TRACK HOE OPERATOR x10(9)/L Monocytes 0.61 0.26 - 12/31/2021 DTL 0.81 5:15 AM TRACK HOE OPERATOR x10(9)/L Eosinophils <0.03 0.03 - 12/31/2021 DTL 0.48 5:15 AM TRACK HOE OPERATOR x10(9)/L Basophils <0.03 0.01 - 12/31/2021 DTL 0.08 5:15 AM TRACK HOE OPERATOR x10(9)/L Specimen Anatomical Collection Method Collection Time Receive d Time (Source) Location / / Volume Laterality Blood (Blood, 12/31/2021 4:25 AM 12/31/19 5:04 Venous) TRACK HOE OPERATOR AM TRACK HOE OPERATOR Dario Carrera M.D. LAB BLOOD ADD-ON Performing Organization Address City/State/ZIP Code Phon e Number [facility] - [address] [place] [address] [facility] 200 [facility] (ABNORMAL) Basic Metabolic Panel (12/31/2021 4:25 AM TRACK HOE OPERATOR) P athologist Signature Potassium, S 4.4 3.6 - 5.2 12/31/2021 DTL mmol/L 5:35 AM TRACK HOE OPERATOR Sodium, S 134 (L) 135 - 145 12/31/2021 DTL mmol/L 5:35 AM TRACK HOE OPERATOR Chloride, S 103 98 - 107 12/31/2021 DTL mmol/L 5:35 AM TRACK HOE OPERATOR Bicarbonate, S 22 22 - 29 12/31/2021 DTL mmol/L 5:35 AM TRACK HOE OPERATOR Anion Gap 9 7 - 15 12/31/2021 DTL 5:35 AM TRACK HOE OPERATOR BUN (Blood Urea 21 6 - 21 12/31/2021 DTL Nitrogen), S mg/dL 5:35 AM TRACK HOE OPERATOR Creatinine 0.74 0.59 - 12/31/2021 DTL 1.04 mg/dL 5:35 AM TRACK HOE OPERATOR eGFR-Non 90 >=60 12/31/2021 DTL Black/ mL/min/BSA 5:35 AM TRACK HOE OPERATOR Swiss Comment: ----ADDITIONAL INFORMATION---- Estimated GFR calculated using the 2009 CKD_EPI creatinine equation. eGFR-Black/ >90 >=60 mL/min/BSA 2021 5:35 AM TRACK HOE OPERATOR DTL Comment: ----ADDITIONAL INFORMATION---- Estimated GFR calculated using the 2009 CKD_EPI creatinine equation. Calcium, Total, S 8.7 8.6 - 10.0 mg/dL 12/31/2021 5:35 AM TRACK HOE OPERATOR DTL Glucose, S 138 70 - 140 mg/dL 12/31/2021 5:35 AM TRACK HOE OPERATOR D TL Specimen Anatomical Collection Method Collection Time Receive d Time (Source) Location / / Volume Laterality Blood (Blood, 12/31/2021 4:25 AM 12/31/19 5:18 Venous) TRACK HOE OPERATOR AM TRACK HOE OPERATOR Dario Carrera M.D. LAB BLOOD ADD-ON Performing Organization Address City/State/ZIP Code Phon e Number [facility] - [address] [place] [address] [address] [facility] [place] [address] [facility] [address] DX Shoulder Left 1 View (12/30/2021 3:41 PM TRACK HOE OPERATOR) Anatomical Region Laterality Modality Upper Extremity, Shoulder, Musculoskeletal RST LOS, Left Computed Radiography Musculoskeletal ARZ LOS, Muskuloskeletal FLA LOS Specimen (Source) Anatomical Collection Method Collection Time Re ceived Time Location / / Volume Laterality 12/30/2021 3:54 PM TRACK HOE OPERATOR Impressions 12/30/2021 3:59 PM TRACK HOE OPERATOR Postoperative changes of a left shoulder arthroplasty resection and placement of an antibiotic spacer. Negat lalo for postoperative purposes. Narrative 12/30/2021 3:59 PM TRACK HOE OPERATOR EXAM: ??DX SHOULDER LEFT 1 VIEW Procedure Note Timothy Resendiz M.D. - 12/30/2021Forma tting of this note might be different from the original. EXAM: DX SHOULDER LEFT 1 VIEW IMPRESSION: Postoperative changes of a left shoulder arthroplasty resection and placement of an antibiotic spacer. Negat lalo for postoperative purposes. Dario Carrera M.D. IMG DIAGNOSTIC IMAGING [facility] Surgical Pathology, Frozen Lab (12/30/2021 2:15 PM TRACK HOE OPERATOR) Component Value Ref Test Analysis Performed At [facility] Range Method Time Signature 01/01/2022 M[facility] 8:22 AM TRACK HOE OPERATOR Participated in Kelly Howard 01/01/2022 M[facility] the D.O.-Pathology 8:22 AM TRACK HOE OPERATOR Interpretation Resident Report Solomon Marcum M.D. 01/01/2022 M[facility] electronically 8:22 AM TRACK HOE OPERATOR signed by I verify that I have examined all relevant slides/materials for the specimen(s) and rendered or confirmed the diagnosis. Frozen A. ??Synovium, left shoulder, excision: ??Synovial tissue 01/01/2022 M[facility] Intraoperative with 8:22 AM TRACK HOE OPERATOR Report acute inflammation (>5 neutrophils/high power field). Signed by Solomon Marcum M.D. 12/31/2021 8:17 AM Gross Description A. ??Received fresh labeled left shoulder is a 1.4 x 0.9 x 01/01/2022 M[facility] 0.4 cm aggregate of red and campbell fibrous tissue, which is 8:22 AM TRACK HOE OPERATOR soft. ??All submitted for frozen and permanent sections. Grossed by Nikki Gallardo. Block Summary A Left shoulder 01/01/2022 M[facility] A1 Left shoulder-frozen 8:22 AM TRACK HOE OPERATOR Interpretation FINAL DIAGNOSIS 01/01/2022 M[facility] 8:22 AM TRACK HOE OPERATOR A. ??Synovium, left shoulder, excision: ??Synovial tissue with acute inflammation (>5 neutrophils/high power field). Specimen (Source) Anatomical Collection Method Collection Time Re ceived Time Location / / Volume Laterality Tissue (Shoulder, 12/30/2021 2:15 PM Left) TRACK HOE OPERATOR Narrative This result has an attachment that is no t available. yCrus Polk M.D. LAB SURG PATH ORDERABLES Performing Organization Address [facility] Phon e Number [facility] - [address] METH [place], [place] [phone] [place] [address] Bacteria Cult, Aerobe / Anaerobe+Susc (12/30/2021 2:11 PM TRACK HOE OPERATOR) [facility] Method Time Signature Bacteria Cult, No growth 01/13/2022 DTL Aerobe/Anaerob after 14 4:02 PM TRACK HOE OPERATOR e+Susc days of incubation. Specimen Anatomical Collection Method Collection Time Receive d Time (Source) Location / / Volume Laterality Shoulder, Left 12/30/2021 2:11 PM 022 3:38 TRACK HOE OPERATOR PM TRACK HOE OPERATOR Comment: Specimen Source Site: Tissue #4 Narrative [facility] - [facility] - 01/13/2022 4:02 PM TRACK HOE OPERATOR Bacterial Culture: Placed in Bactec aero bic and Bactec anaerobic bottles Cyrus Polk M.D. LAB MICROBIOLOGY - GENERAL O RDERABLES Performing Organization Address City/[facility] Phon e Number [facility] - [address] [place], [place] [address] [facility] D[place], [place] [id number] [place] [address] [facility] (ABNORMAL) Bacteria Cult, Aerobe / Anaerobe+Susc (12/30/2021 2:05 PM TRACK HOE OPERATOR) Component Value Ref Test Analysis [facility] Range Method Time Signature Bacteria STAPHYLOCOCCUS EPIDERMIDIS 01/11/2022 DT L Cult, Growth after 4 days 7:55 AM TRACK HOE OPERATOR Aerobe/Anaero (A) be+Susc Comment: Semi-Urgent Result. Semi-Urgent This is a semi-urgent result [facility] - (ORTIZ) [facility] S Specimen Anatomical Collection Method Collection Time Receive d Time (Source) Location / / Volume Laterality Synovial Fluid, 12/30/2021 2:05 PM 2021 3:17 Left Shoulder TRACK HOE OPERATOR PM TRACK HOE OPERATOR Comment: Specimen Source Site: Fluid Narrative [facility] - 01/11/2022 7:55 AM TRACK HOE OPERATOR Bacterial Culture: Placed in Bactec aero [...] e Number [facility] - [address] [place] [address] [address] [place] [address] [facility] [address] [facility] Bacteria Cult, Aerobe / Anaerobe+Susc (12/30/2021 2:04 PM TRACK HOE OPERATOR) [facility] Method Time Signature Bacteria Cult, No growth 01/13/2022 DTL Aerobe/Anaerob after 14 4:02 PM TRACK HOE OPERATOR e+Susc days of incubation. Specimen Anatomical Collection Method Collection Time Receive d Time (Source) Location / / Volume Laterality Shoulder, Left 12/30/2021 2:04 PM 022 3:34 TRACK HOE OPERATOR PM TRACK HOE OPERATOR Comment: Specimen Source Site: Tissue #3 Narrative [facility] - 01/13/2022 4:02 PM TRACK HOE OPERATOR Bacterial Culture: Placed in Bactec aero bic and Bactec anaerobic bottles Cyrus Polk M.D. LAB MICROBIOLOGY - GENERAL O MARY Performing Organization Address City/[facility] Phon e Number [facility] - [address] [place], [place] [address] [facility] [place], [place] [phone] [place] [address] Bacteria Cult, Aerobe / Anaerobe+Susc (12/30/2021 2:03 PM TRACK HOE OPERATOR) [facility] Method Time Signature Bacteria Cult, No growth 01/13/2022 DTL Aerobe/Anaerob after 14 4:02 PM TRACK HOE OPERATOR e+Susc days of incubation. Specimen Anatomical Collection Method Collection Time Receive d Time (Source) Location / / Volume Laterality Shoulder, Left 12/30/2021 2:03 PM 022 3:37 TRACK HOE OPERATOR PM TRACK HOE OPERATOR Comment: Specimen Source Site: Tissue #2 [facility] - 01/13/2022 4:02 PM TRACK HOE OPERATOR Bacterial Culture: Placed in Bactec aero bic and Bactec anaerobic bottles Cyrus Polk M.D. LAB MICROBIOLOGY - GENERAL O MARY Performing Organization Address City/[facility] Code Phon e Number [facility] - [address] [place], [place] [address] [facility] [place], [place] [phone] [place] [address] Bacteria Cult, Aerobe / Anaerobe+Susc (12/30/2021 2:03 PM TRACK HOE OPERATOR) [facility] Method Time Signature Bacteria Cult, No growth 01/13/2022 DTL Aerobe/Anaerob after 14 4:02 PM TRACK HOE OPERATOR e+Susc days of incubation. Specimen Anatomical Collection Method Collection Time Receive d Time (Source) Location / / Volume Laterality Shoulder, Left 12/30/2021 2:03 PM 022 3:31 TRACK HOE OPERATOR PM TRACK HOE OPERATOR Comment: Specimen Source Site: Tissue #1 Narrative [facility] - [facility] - 01/13/2022 4:02 PM TRACK HOE OPERATOR Bacterial Culture: Placed in Bactec aero bic and Bactec anaerobic bottles Cyrus Polk M.D. LAB MICROBIOLOGY - GENERAL O RDERABLES Performing Organization Address City/State/ZIP Code Phon e Number [facility] - [address] [place], [place] [address] [facility] [place] [address] [facility] [address] [...] tablet 1,000 mg Given 12/30/2021 12:02 PM TRACK HOE OPERATOR 1,00 0 mg (TYLENOL) 1,000 mg, oral, Once, On Tue12/30/21 at 1215, For 1 dose, Pre-Op acetaminophen tablet 1,000 mg (TYLENOL) Given 01/01/2022 11:36 AM TRACK HOE OPERATOR 1,000 mg 1,000 mg, oral, Every 6 hours, First dose on Tue12/30/21 at 1800 Given 01/01/2022 6:28 AM TRACK HOE OPERATOR 1,000 mg Given 12/31/2021 11:51 PM TRACK HOE OPERATOR 1,000 mg albuterol nebulizer solution 2.5 mg Given 12/31/2021 4:44 PM TRACK HOE OPERATOR 2.5 mg 2.5 mg, nebulization, Every 6 hours PRN, wheezing, Starting on Tue12/30/21 at 1711, Albuterol nebs were interchanged for albuterol/levalbuterol MDI (same frequency) atorvastatin tablet 80 mg (LIPITOR) Given 12/31/2021 8:57 PM TRACK HOE OPERATOR 80 mg 80 mg, oral, Daily at bedtime, First dose on Tue12/30/21 at 2100 Given 12/30/2021 9:55 PM TRACK HOE OPERATOR 80 mg benzonatate capsule 100 mg (TESSALON PER LES) Given 01/01/2022 3:10 AM TRACK HOE OPERATOR 100 mg 100 mg, oral, 3 times daily PRN, cough, Starting on Tue12/31/21 at 1702, Swallow whole. Do NOT crush, chew or open capsule. Given 12/31/2021 5:39 PM TRACK HOE OPERATOR 100 mg bupivacaine PF 0.2 % 550 mL in NaCl New Bag 01/01/2022 3:15 PM TRACK HOE OPERATOR 6 mL/hr 6 mL/hr 0.9% On-Q pain pump (CB004) 6 mL/hr, nerve catheter, Continuous, Starting on Tue01/01/22 at 1500, PACU & Post-Op, Location: Nerve Catheter Location, Nerve Catheter Location: Interscalene, Device: On-Q Pump bupivacaine PF 0.2 % in Rate/Dose Verify 01/01/2022 1:00 AM TRACK HOE OPERATOR 6 mL/ hr 6 mL/hr NaCl 0.9% 341 mL infusion (MARCAINE) 6 mL/hr, nerve catheter, Continuous, Starting on Tue12/30/21 at 1600, PACU & Post-Op, Nerve Catheter Location: Interscalene, Device: Hospital Infusion Pump Rate/Dose Verify 12/31/2021 12:11 AM TRACK HOE OPERATOR 6 mL/hr 6 mL/hr New Bag 12/30/2021 3:49 PM TRACK HOE OPERATOR 6 mL/hr 6 mL/hr buPROPion XL 24 hr tablet 150 mg (WELLBUTRIN Given 02/2022 8:35 AM TRACK HOE OPERATOR 150 mg XL) 150 mg, oral, Every morning, First dose on Tue12/31/21 at 0900, Swallow whole. Do NOT crush, chew, or split tablet. Given 12/31/2021 8:16 AM TRACK HOE OPERATOR 150 mg calcium carbonate chewable tablet Given 12/31/2021 11: 46 PM TRACK HOE OPERATOR 400 mg of calcium 400 mg of calcium (TUMS) 400 mg of calcium, oral, Every 2 hour PRN, indigestion, Starting on Tue12/30/21 at 1711, Doses listed are in mg of elemental calcium. Take with food. 500 mg calcium carbonate contains 200 mg of elemental calcium. Given 12/31/2021 9:15 PM TRACK HOE OPERATOR 400 mg of calcium carboxymethylcellulose 0.5 % ophthalmic Given 01/01/2022 1:15 AM TRACK HOE OPERATOR 2 drops solution 2 drop (REFRESH PLUS) 2 drop, both eyes, 4 times daily PRN, dry eyes, Starting on Tue12/30/21 at 1711 Given 12/31/2021 12:31 PM TRACK HOE OPERATOR 2 drops Given 12/31/2021 12:23 AM TRACK HOE OPERATOR 2 drops ceFAZolin in dextrose (iso-os) IVPB 2 New Bag 01/01/2022 6:27 AM TRACK HOE OPERATOR 2 g 200 mL/hr g (ANCEF) 2 g, intravenous, at 200 mL/hr, Administer over 30 Minutes, Every 8 hours, First dose on Tue12/30/21 at 2200, Start within 8 hours of last IV dose., Drug Monitoring Program: Pharmacist to adjust medication dosing based on indication and drug clearance factors., Indications: Bone and/or joint infection New Bag 12/31/2021 10:32 PM TRACK HOE OPERATOR 2 g 200 mL/hr New Bag 12/31/2021 2:21 PM TRACK HOE OPERATOR 2 g 200 mL/hr cefTRIAXone in dextrose (iso-osm) IVPB New Bag 01/01/2022 2:38 PM TRACK HOE OPERATOR 2 g 200 mL/hr 2 g (ROCEPHIN) 2 g, intravenous, at 200 mL/hr, Administer over 15 Minutes, Daily before lunch, First dose on Tue01/01/22 at 1345, Drug Monitoring Program: Pharmacist to adjust medication dosing based on indication and drug clearance factors., Indications: Bone and/or joint infection cetirizine tablet 10 mg (ZyrTEC) Given 01/01/2022 8:35 AM TRACK HOE OPERATOR 10 mg 10 mg, oral, 2 times daily, First dose on Tue12/30/21 at 2100, Drug Monitoring Program: Pharmacist to adjust medication dosing based on indication and drug clearance factors. Given 12/31/2021 8:57 PM TRACK HOE OPERATOR 10 mg Given 12/31/2021 8:16 AM TRACK HOE OPERATOR 10 mg cholecalciferol (vitamin D3) tablet 25 m cg Given 01/01/2022 8:35 AM TRACK HOE OPERATOR 25 mcg 25 mcg, oral, Daily, First dose on Tue12/31/21 at 0900, cholecalciferol (vitamin D3) orderable was interchanged for cholecalciferol (vitamin D3) tablet/capsule Given 12/31/2021 8:16 AM TRACK HOE OPERATOR 25 mcg D5W infusion 10-250 mL/hr, [...] 5 mg (VALIUM) Given 12/31/2021 12:31 PM TRACK HOE OPERATOR 5 mg 5 mg, oral, 4 times daily PRN, muscle spasms, Starting on Tue12/30/21 at 2243 Given 12/31/2021 1:59 AM TRACK HOE OPERATOR 5 mg diphenhydrAMINE capsule 25 mg (BENADRYL) 25 mg, oral, Daily PRN, itching, Starting on Tue 2 at 0854 diphenhydrAMINE capsule 75 mg (BENADRYL) Given 01/01/2022 8:49 AM TRACK HOE OPERATOR 75 mg 75 mg, oral, Bedtime PRN, sleep, Starting on Tue12/30/21 at 1715 FLUoxetine capsule 80 mg (PROzac) Given 01/01/2022 8:34 AM TRACK HOE OPERATOR 80 mg 80 mg, oral, Daily, First dose on Tue12/31/21 at 0900, FLUoxetine orderable was interchanged for FLUoxetine tablet/capsule Given 12/31/2021 8:16 AM TRACK HOE OPERATOR 80 mg fluticasone furoate 100 mcg/actuation Given 01/01/2022 8:[address] 2 puffs inhaler 2 puff (ARNUITY ELLIPTA) 2 puff, inhalation, 2 times daily, First dose on Tue12/30/21 at 2100, fluticasone furoate 100 mcg was interchanged for fluticasone MDI 110 mcg Given 12/31/2021 9:04 PM TRACK HOE OPERATOR 2 puffs Given 12/31/2021 8:17 AM TRACK HOE OPERATOR 2 puffs granisetron (PF) injection 1 mg (KYTRIL) Given 12/30/2021 3:57 PM TRACK HOE OPERATOR 1 mg 1 mg, intravenous, Once as needed, nausea, vomiting, Starting on Tue12/30/21 at 1546, For 1 dose, PACU (only), If patient does not respond to ondansetron or haloperidol. (order of antiemetic administration - ondansetron then haloperidol then granisetron) haloperidol lactate injection 1 mg (HALD OL) Given 12/30/2021 4:31 PM TRACK HOE OPERATOR 1 mg 1 mg, intravenous, Every 6 [...] injection 0.2 mg Given 12/30/2021 4:17 PM TRACK HOE OPERATOR 0.2 mg (DILAUDID) 0.2 mg, intravenous, Every 5 min PRN, moderate pain or score 4-6 of 10, severe pain or score 7-10 of 10, Starting on Tue12/30/21 at 1546, PACU (only), Up to maximum total dose of 2 mg Given 12/30/2021 4:07 PM TRACK HOE OPERATOR 0.2 mg Given 12/30/2021 3:55 PM TRACK HOE OPERATOR 0.2 mg HYDROmorphone (PF) injection 0.4 mg Given 01/01/2022 4:56 AM TRACK HOE OPERATOR 0.4 mg (DILAUDID) 0.4 mg, intravenous, Every 2 hour PRN, severe pain or score 7-10 of 10, Starting on Tue12/30/21 at 1711, For 5 doses, May administer if pain is greater than 7 after scheduled and PRN regimen exhausted. If pain remains greater than 7, notify primary service. Given 12/31/2021 11:35 AM TRACK HOE OPERATOR 0.4 mg Given 12/31/2021 4:14 AM TRACK HOE OPERATOR 0.4 mg ipratropium-albuteroL 0.5-2.5 mg/3 mL nebulizer Given 01/01/2022 3:15 AM TRACK HOE OPERATOR 3 mL solution 3 mL (DUONEB) 3 mL, nebulization, 4 times daily PRN, shortness of breath, wheezing, Starting on Tue12/30/21 at 1711 ketamine injection 10 mg (KETALAR) Given 12/30/2021 12:38 PM TRACK HOE OPERATOR 10 mg 10 mg, intravenous, Once, On Tue12/30/21 at 1300, For 1 dose, Pre-Op lactated ringers Rate/Dose Change 01/01/2022 1:00 AM TRACK HOE OPERATOR 20 mL/hr 20 mL/hr 75 mL/hr, intravenous, Continuous, Starting on Tue12/30/21 at 1715, Until patient has 500cc po intake New Bag 12/31/2021 11:46 PM TRACK HOE OPERATOR 75 mL/hr 75 mL/hr Rate/Dose Change 12/31/2021 3:55 AM TRACK HOE OPERATOR 20 mL/hr 20 mL/hr lactated ringers Continued from OR 12/30/2021 4:00 PM TRACK HOE OPERATOR 75 mL/hr 75 mL/hr 75 mL/hr, intravenous, Continuous, Starting on Tue12/30/21 at 1600, PACU & Post-Op lamoTRIgine tablet 200 mg (LaMICtaL) Given 01/01/2022 8:34 AM TRACK HOE OPERATOR 200 mg 200 mg, oral, 2 times daily, First dose on Tue12/30/21 at 2100 Given 12/31/2021 8:56 PM TRACK HOE OPERATOR 200 mg Given 12/31/2021 8:16 AM TRACK HOE OPERATOR 200 mg midazolam (PF) injection 1 mg (VERSED) Given 12/30/2021 12:38 PM TRACK HOE OPERATOR 2 mg 1 mg, intravenous, Every 2 [...] 4 mg (ZOFRAN) Given 01/01/2022 1:16 AM TRACK HOE OPERATOR 4 mg 4 mg, intravenous, Every 6 hours PRN, nausea, vomiting, Starting on Tue12/30/21 at 1711, For 48 hours, Reassess for nausea or vomiting after at least 10 minutes. If nausea or vomiting persists administer next ordered antiemetic medications (order for antiemetic medication administration ondansetron then haloperidol then promethazine). Given 12/31/2021 8:16 AM TRACK HOE OPERATOR 4 mg oxyCODONE 12 hr tablet 20 mg (OxyCONTIN) Given 12/30/2021 12:35 PM TRACK HOE OPERATOR 20 mg 20 mg, oral, Once, On Tue12/30/21 at 1300, For 1 dose, Pre-Op, Swallow whole. Do NOT crush, chew, or split tablet. oxyCODONE IR tablet 10 mg (ROXICODONE) Given 12/31/2021 10:43 AM TRACK HOE OPERATOR 10 mg 10 mg, oral, Every 4 hours PRN, severe pain or score 7-10 of 10, Starting on Tue12/30/21 at 1536 Given 12/31/2021 6:19 AM TRACK HOE OPERATOR 10 mg Given 12/31/2021 12:22 AM TRACK HOE OPERATOR 10 mg oxyCODONE IR tablet 10 mg (ROXICODONE) Given 12/31/2021 2:21 PM TRACK HOE OPERATOR 10 mg 10 mg, oral, Every 4 hours PRN, severe pain or score 7-10 of 10, Starting on Tue12/31/21 at 1415 oxyCODONE IR tablet 10 mg (ROXICODONE) Given 01/01/2022 2:38 PM TRACK HOE OPERATOR 10 mg 10 mg, oral, Every 3 hours PRN, severe pain or score 7-10 of 10, Starting on Tue12/31/21 at 1745 Given 01/01/2022 11:35 AM TRACK HOE OPERATOR 10 mg Given 01/01/2022 7:07 AM TRACK HOE OPERATOR 10 mg oxyCODONE IR tablet 5 mg (ROXICODONE) 5 mg, oral, Every 3 hours PRN, moderate pain or score 4-6 of 10, Starting on Tue12/31/21 at 1745, If patient is >75 consider changing to 2.5-5mg scale pantoprazole DR tablet 40 mg (PROTONIX) Given 01/01/2022 3:46 PM TRACK HOE OPERATOR 40 mg 40 mg, oral, 2 times daily before breakfast and dinner, First dose on Tue12/31/21 at 0700, pantoprazole 40 mg oral twice daily was interchanged for esomeprazole 20 or 40 mg oral twice daily Swallow whole. Do NOT crush, chew, or split tablet. Given 01/01/2022 6:29 AM TRACK HOE OPERATOR 40 mg Given 12/31/2021 4:47 PM TRACK HOE OPERATOR 40 mg pregabalin capsule 600 mg (LYRICA) Given 01/01/2022 8:34 AM TRACK HOE OPERATOR 600 mg 600 mg, oral, 2 times daily, First dose on Tue12/30/21 at 2100 Given 12/31/2021 8:56 PM TRACK HOE OPERATOR 600 mg Given 12/31/2021 8:15 AM TRACK HOE OPERATOR 600 mg QUEtiapine tablet 50 mg (SEROquel) Given 12/31/2021 8:57 PM TRACK HOE OPERATOR 50 mg 50 mg, oral, Daily at bedtime, First dose on Tue12/30/21 at 2100 Given 12/30/2021 9:55 PM TRACK HOE OPERATOR 50 mg scopolamine base 1 mg Medication Applied 12/30/2021 12:02 PM 1 patch Behind Left Ear over 3 days 1 patch TRACK HOE OPERATOR (TRANSDERM SCOP) 1 patch, transdermal, Administer over 72 Hours, Once as needed, nausea and vomiting, Starting on Tue12/30/21 at 1201, For 1 dose, Pre-Op, Contains 1.5 mg to deliver 1 mg/72 hours. sennosides-docusate sodium 8.6-50 mg per Given 01/01/2022 8:35 A M TRACK HOE OPERATOR 1 tablet tablet 1 tablet (SENOKOT-S) 1 tablet, oral, 2 times daily, First dose on Tue12/30/21 at 2100, Do not give if patient has diarrhea. Given 12/31/2021 8:57 PM TRACK HOE OPERATOR 1 tablet Given 12/31/2021 8:16 AM TRACK HOE OPERATOR 1 tablet sodium chloride 0.9 % [...] injection 3 mL Given 12/31/2021 8:18 AM TRACK HOE OPERATOR 3 mL 3 mL, intravenous, Every 12 hours scheduled, First dose on Tue12/30/21 at 2100, PACU & Post-Op, Peripheral Intravenous Catheter and Rapid Infusion Catheter, when no infusion to maintain patency Given 12/30/2021 9:53 PM TRACK HOE OPERATOR 3 mL zonisamide capsule 300 mg (ZONEGRAN) Given 01/01/2022 8:35 AM TRACK HOE OPERATOR 300 mg 300 mg, oral, 2 times daily, First dose on Tue12/30/21 at 2100, Swallow whole. Do NOT crush, chew or open capsule. Given 12/31/2021 8:57 PM TRACK HOE OPERATOR 300 mg Given 12/31/2021 8:16 AM TRACK HOE OPERATOR 300 mg documented in this encounter Active and Recently Administered Medications Times are shown in TRACK HOE OPERATOR. Scheduled Medication Order 12/30/2021 12/31/2021 01/01/2022 [...] 1419 (Given - Provider: Emre Rodriguez APRN, LINE RUNNER) 2,000 mg (rounded from 1,747.5 mg = [...] Carmen RBetsy) 0011 (Rate/Dose Verify - Provider: eKm Givens R.N.) 0100 (Rate/Dose Verify - Provider: [...] (TUMS) 2114 (Given - Provider: Fanny Sifuentes RBrittonN.)5016 (Given - Provider: Leticia Pérez, R.N.) 400 mg of calcium, oral, Every 2 hour [place] N, indigestion, Starting on Tue12/30/21 at 1711, [...] over 3 days 1 patch (TRANSDERM S BAGMAN/WOMAN) (CANCELED) 1202 (Medication Applied - Provider: Manda [...] as of this encounter Care Teams Associate Merchant Relationship Specialty Start Date End Date Elsewhere, Pcp PCP - General Family Medicine 12/25/21 documented as of this encounter
--- OUTSIDE RECORDS SUMMARY | 2022-11-06 15:31 | XMS_ITS | Encounter Summary ---
:1965 Author Organization [facility] Address [address] [place] [address] Care Team Providers Name Role Phone Elsewhere, Pcp Primary Care Provider Unavailable Reason for Referral Outpatient (Routine) - Closed Specialty Diagnoses / Procedures Referred By Contact Refer red To Contact Orthopedic Surgery Diagnoses [facility] [address] [place] [phone] Referral ID Status Reason Start Date Expiration Date Visits Requ ested Visits Authorized [id number] Closed 12/30/2021 12/30/2022 1 1 [place] WIRELESS SALES REPRESENTATIVE Reason for Visit Reason Comments Pre-visit Testing Orders Encounter Details Date Type Department Care Team Description 12/29/2021 Clinical Communication Department of Jam, Pre- visit Testing Orthopedic Surgery Cyrus Souza M.D. Orders in [place], [address] [place] [address] [place] [address] [place], [place] [phone] (Work) [phone] Social History Tobacco Use Types Packs/Day Years [...] you attend quaker or Patient refused 2021 mormon services? Do you belong to any clubs or No 05/17/2022 organizations such as quaker groups, unions, fraSP3H or athletic groups, or school groups? How [...] 12/29/2021 1:06 PM CST Please sign order [place] WIRELESS SALES REPRESENTATIVE documented in this encounter Plan of Treatment Scheduled Referrals Name Type Priority Associated Order Schedule Diagnoses Orthopedic Surgery Outpatient Referral Routine Pain Shoulder L eft Expected: Pre Op (clinic) 02/24/2022, Expires: 03/28/2023 documented as of this encounter Results SARS CoV-2 RNA, PCR, Varies Asymptomatic (02/25/2022 11:09 AM CDT) [facility] Method Time Signature SARS CoV-2 Swab, [...] Drug Administration an d is used per manager strategic development's instructions. Performance characteristics were verified by [facility] in a manner consistent with CLIA requirements. Visit the CDC website: https://www.cdc.g ov/coronavirus/ for the most recent guidelines on Coron avirus testing. Fact Sheet for Healthcare Providers: https://www.fda.gov/media/384304/downloa d Fact Sheet for Patients: https://www.fda.gov/media/664846/downloa d Specimen Anatomical Collection Method Collection Time Receive d Time (Source) Location / / Volume Laterality Varies 02/25/2022 11:09 02/25/2022 (Nasopharynx) AM CDT 11:40 AM CDT Alfredo Kamara LAB MICROBIOLOGY - GENERAL O RDERABLES Performing Organization Address City/State/ZIP Code Phon e Number [facility] - 200 [place], [place] [address] [facility] [place] [address] Laboratories-[facility] [address] documented in this encounter Visit Diagnoses Diagnosis Pain Shoulder Left - Primary documented in this encounter Additional Health Concerns Infection Onset Date Last Indicated Resolved Time COVID19 Pending 12/29/2021 12/29/2021 12/29/2021 4:20 PM RETAIL WIRELESS SALES REPRESENTATIVE Assessment Noted Time PHQ-9 Depression Total Score: 16 02/11/2021 12:00 AM C DT documented as of this encounter Care Teams Endoscopy Nurse Relationship Specialty Start Date End Date Elsewhere, Pcp PCP - General Family Medicine 12/25/21 documented as of this encounter
--- OUTSIDE RECORDS SUMMARY | 2022-11-06 15:31 | XMS_ITS | Encounter Summary ---
:1965 Author Organization [facility] Address 200 [place] [address] Care Team Providers Name Role Phone Elsewhere, Pcp Primary Care Provider Unavailable Reason for Referral Outpatient (Routine) - Closed Specialty Diagnoses / Procedures Referred By Contact Refer red To Contact Infectious Diseases Diagnoses Aftercare Total Shoulder Arthroplasty Jose Guadalupe Nixon [place] M.D. 200 [place] [address] Referral ID Status Reason Start Date Expiration Date Visits Requ ested Visits Authorized [id number] Closed 01/01/2022 01/01/2023 1 1 FACTURING FINANCE MANAGER Reason for Visit Reason Comments OPAT Post Hospital Follow-up Encounter Details Date Type Department Care Team Description 01/01/2022 Clinical Communication RST HIM MATTHEW Nixon; Post Hospital 200 [facility] Jose Guadalupe Garcia M.D. Follow-up [place], [place] 200 [facility] [phone] [place] [address] Social History Tobacco Use Types Packs/Day Years [...] you attend mandaeism or Patient refused 2021 anabaptism services? Do [...] Order S [facility] Infectious Disease Outpatient Routine [...] M.D. LAB BLOOD ADD-ON Performing Organization Address City/State/[facility] Phon e Number [facility] - [address] [place] [address] [place] [phone] [address] CRP (C-Reactive Protein) (02/25/2022 10:09 AM CDT) P athologist Signature C-Reactive <3.0 <=8.0 mg/L 02/25/2022 DTL Protein (CRP), 11:34 AM CDT S Specimen Anatomical Collection Method Collection Time Receive d Time (Source) Location / / Volume Laterality Blood (Blood, 02/25/2022 10:09 02/25/2022 Venous) AM CDT 11:00 AM CDT Jose Guadalupe Nixon M.D. LAB BLOOD ADD-ON Performing Organization Address [facility] Phon e Number [facility] - [address] [place] [address] (ABNORMAL) CBC with Differential, Blood (02/25/2022 [...] Organization Address City/State/ZIP Code Phon e Number [facility] - [address] [place], [place] [address] [facility] [place] [address] Laboratories-[facility] [address] documented in this encounter Visit Diagnoses Diagnosis Aftercare Total Shoulder Arthroplasty - Primary documented in this encounter Additional Health Concerns Assessment Noted Time PHQ-9 Depression Total Score: 16 02/11/2021 12:00 AM C DT documented as of this encounter Care Teams Forest Pathology Associate Professor Relationship Specialty Start Date End Date Elsewhere, Pcp PCP - General Family Medicine 12/25/21 documented as of this encounter
--- OUTSIDE RECORDS SUMMARY | 2022-11-06 15:32 | XMS_ITS | Encounter Summary ---
:1965 Author Organization [facility] Address [address] [place] [address] Care Team Providers Name Role Phone Unavailable Primary Care Provider Unavailable Encounter Details Date Type Department Care Team Description 09/23/2021 Hospital Encounter Department of Alfredo Herrera Total Joint Radiology, Anh Gonzales Arthroplasty Initial Building, in [address] [place] [address] (FORMERLY [facility]) [facility] [phone] [place] [address] [place], [place] (Work) [phone] Social History Tobacco Use Types Packs/Day Years [...] you attend episcopalian or Patient refused 2021 mormonism services? Do [...] mg capsule 2 (two) times a day. cholecalciferol (VITAMIN [...]
--- OUTSIDE RECORDS SUMMARY | 2022-11-06 15:32 | XMS_ITS | Encounter Summary ---
:1965 Author Organization [facility] Address [address] [place] [address] Care Team Providers Name Role Phone Unavailable Primary Care Provider Unavailable Encounter Details Date Type Department Care Team Description 09/23/2021 Hospital Encounter Department of Alfredo Herrera Total Joint Laboratory Medicine A, O.PBrittonABritton-CBritton Arthroplasty Initial and Pathology, [address] [place] [address] ([facility]) [facility] in [place] [phone] [place] [phone] 200 [facility] (Work) [place], [place] [phone] (Fax) [phone] Social History Tobacco Use Types Packs/Day Years [...] you attend nondenominational or Patient refused 2021 muslim services? Do [...] (ABNORMAL) Sedimentation Rate (09/23/2021 9:07 AM CDT) [facility] Method Time Signature Sedimentation 31 (H) 2 - 22 09/23/2021 DTL Rate, B mm/h 10:46 AM CDT Specimen Anatomical Collection Method Collection Time Receive d Time (Source) Location / / Volume Laterality Blood (Blood, 09/23/2021 9:07 AM 09/23/20 9:30 Venous) CDT AM CDT Alfredo Kamara LAB BLOOD ADD-ON Performing Organization Address City/[facility] Phon e Number ED [facility] - 200 [place], [place] [address] [place] [address] [place] [address] Laboratories-[address] CRP (C-Reactive Protein) (09/23/2021 9:07 AM CDT) P athologist Signature C-Reactive <3.0 <=8.0 mg/L 09/23/2021 DTL Protein (CRP), 10:30 AM CDT S Specimen Anatomical Collection Method Collection Time Receive d Time (Source) Location / / Volume Laterality Blood (Blood, 09/23/2021 9:07 AM 09/23/20 9:57 Venous) CDT AM CDT Alfredo Kamara LAB BLOOD ADD-ON Performing Organization Address City/[facility] Phon e Number [facility] - 200 [place], [place] [address] [place] [address] Laboratories-[address] (ABNORMAL) CBC with Differential, Blood (09/23/2021 9:07 AM CDT) [facility] Method Time Signature Hemoglobin 10.1 (L) 11.6 [...] [facility] - [address] [place], [place] [address] [facility] [place] [address] Laboratories-[facility] [address] documented in this encounter Visit Diagnoses Diagnosis Painful Total Joint Arthroplasty Initial (HCC) documented in this encounter Additional Health Concerns Assessment Noted Time PHQ-9 Depression Total Score: 16 02/11/2021 12:00 AM C DT documented as of this encounter
--- OUTSIDE RECORDS SUMMARY | 2022-11-06 15:32 | XMS_ITS | Encounter Summary ---
:1965 Author Organization [facility] Address [address] [place] [address] Care Team Providers Name Role Phone Elsewhere, Pcp Primary Care Provider Unavailable Encounter Details Date Type Department Care Team Description 12/29/2021 Hospital Encounter Department of Alfredo Herrera Preoper ative Exam; Radiology, Anh Gonzales Painful Total Joint Arthroplasty Initial ([facility]) Building, in [address] [place] [phone] [place] [address] [place], [place] (Work) [phone] Social History Tobacco Use Types Packs/Day Years [...] THC multivit-min/iron/folic/ Take 1 tablet by 0 [id number] (HAIR, SKIN AND mouth daily. NAILS ADVANCED [...] for this 2+ VIEWS (most inpatients AM TRIBAL JUDGE Painful Total Joint proc edure are in and all Arthroplasty the results outpatients) Initial (HCC) section. documented in this encounter Results DX Shoulder Left 2+ Views (12/29/2021 10:30 AM TRIBAL JUDGE) Anatomical Region Laterality Modality Upper Extremity, Shoulder, Musculoskeletal RST LOS, Left Digital Radiography Musculoskeletal ARZ LOS, Muskuloskeletal FLA LOS Specimen (Source) Anatomical Collection Method Collection Time Re ceived Time Location / / Volume Laterality 12/29/2021 10:53 AM TRIBAL JUDGE Impressions 12/29/2021 10:57 AM TRIBAL JUDGE Demineralization. Left shoulder arthroplasty revision to a reverse TSA. Developing lucency about the glenoi d component screws when compared back to 11/13/20, compatible with loosening. Pre sumed distal clavicle resection. Incompletely imaged instrumented spinal fusion from the upper cervical spine to the upper thoracic spine. Spinal cord st imulator. At least one old healed left posterior rib fracture. Narrative 12/29/2021 10:57 AM TRIBAL JUDGE EXAM: ??DX SHOULDER LEFT 2+ VIEWS Procedure [...] COVID19 Pending 12/29/2021 12/29/2021 12/29/2021 4:20 PM TRIBAL JUDGE Assessment Noted Time PHQ-9 Depression Total Score: 16 02/11/2021 12:00 AM C DT documented as of this encounter Care Teams Monorail Helper Relationship Specialty Start Date End Date Elsewhere, Pcp PCP - General Family Medicine 12/25/21 documented as of this encounter
--- OUTSIDE RECORDS SUMMARY | 2022-11-06 15:32 | XMS_ITS | Encounter Summary ---
:1965 Author Organization [facility] Address [address] [place] [address] Care Team Providers Name Role Phone Unavailable Primary Care Provider Unavailable Encounter Details Date Type Department Care Team Description 10/13/2021 Clinical Communication Preoperative [facility] in [employer] [place], [place] 200 [facility] [address] [place] [phone] Social History Tobacco Use Types Packs/Day Years [...] you attend mormonism or Patient refused 2021 pentecostalism services? Do [...] Umu Gan RBrittonR.T. - 10/13/2021 11:09 AM EXECUTIVE SALES MANAGER Surgical Risk Score: 3 Risk Identifiers: 4+ ??? TIA ??? PFO ??? Hx of Arterial Thrombosis ??? Asthma UTIVE SALES MANAGER documented in this encounter Plan of Treatment Not on filedocumented as of this encounter Visit Diagnoses Not on filedocumented in this encounter Additional Health Concerns Assessment Noted Time PHQ-9 Depression Total Score: 16 02/11/2021 12:00 AM C DT documented as of this encounter
--- OUTSIDE RECORDS SUMMARY | 2022-11-06 15:32 | XMS_ITS | Encounter Summary ---
:1965 Author Organization [facility] Address [address] [place] [address] Care Team Providers Name Role Phone Unavailable Primary Care Provider Unavailable Reason for Referral Outpatient (Routine) - Closed Specialty Diagnoses / Procedures Referred By Contact Refer red To Contact Diagnoses Painful Total Joint Arthroplasty Initial (HCC) Alfredo Herrera [place] Procedures US Major Joint Aspiration and or Injection Left O.P.A.-C. [address] [place] [address] Referral ID Status Reason Start Date Expiration Date Visits Requ ested Visits Authorized [id number] Closed 09/07/2021 09/07/2022 1 1 Outpatient (Routine) - Closed Specialty Diagnoses / Procedures Referred By Contact Refer red To Contact Diagnoses Painful Total Joint Arthroplasty Initial (HCC) Alfredo Herrera [place] Procedures US Musculoskeletal Shoulder Left O.P.A.-C. [address] [place] [address] Referral ID Status Reason Start Date Expiration Date Visits Requ ested Visits Authorized [id number] Closed 09/07/2021 09/07/2022 1 1 Reason for Visit Outpatient (Routine) - Closed Specialty Diagnoses / Procedures Referred By Contact Refer red To Contact Diagnoses Painful Total Joint Arthroplasty Initial (HCC) Alfredo Herrera [place] Procedures US Major Joint Aspiration and or Injection Left O.P.A.-C. [address] [place] [phone] Referral ID Status Reason Start Date Expiration Date Visits Requ ested Visits Authorized [id number] Closed 09/07/2021 09/07/2022 1 1 Encounter Details Date Type Department Care Team Description 09/25/2021 Hospital Encounter Department of Alfredo Herrera Painful Total Joint Radiology, Anh Gonzales Arthroplasty Initial Building, in [address] [place] [address] ([facility]) [facility] [phone] [place] [address] [place], [place] (Work) [phone] Social History Tobacco Use [...] you attend religious or Patient refused 2021 yarsanism services? Do [...] Differential, Body Fluid (09/25/2021 1:48 PM CDT) [facility] Method Time Signature Fluid Type Left 09/25/2021 DHPM Shoulder 4:50 PM CDT Gross Slightly 09/25/2021 DHPM Appearance bloody 4:50 PM CDT Total 12028 /mcL 09/25/2021 DHPM Nucleated 4:50 PM CDT [...] AND STOOLS O MARY Performing Organization Address City/[facility] Phon e Number [facility] - [address] [place], [place] [address] [place] [address] [facility] [address] [facility] Acid Fast Smear For Mycobacterium (09/25/2021 1:48 PM CDT) [employer] gist Method Time Signature Acid Fast Smear Negative. 09/26/2021 DTL For Mycobacterium 2:58 PM CDT Specimen Anatomical Collection Method Collection Time Receive d Time (Source) Location / / Volume Laterality Synovial Fluid, 09/25/2021 1:48 PM 2020 3:42 Left Shoulder CDT PM CDT Comment: Specimen Source Site: Fluid Narrative [facility] - [facility] - 09/26/2021 2:58 PM CDT Fungal and Mycobacteria specimens plated for culture, volume inadequate for optimal recovery. Alfredo Kamara LAB MICROBIOLOGY - GENERAL O MARY Performing Organization Address City/[facility] Code Phon e Number [facility] - [address] [place], [place] [address] [place] [address] Gram Stain (09/25/2021 1:48 PM CDT) [employer] gist Method Time Signature Gram Stain No [...] Address City/State/ZIP Code Phon e Number [facility] - [address] [place], [place] [address] [place] [address] [facility] [address] (ABNORMAL) Bacterial Culture, Aerobic + Susc (09/25/2021 1:48 PM CDT) Component Value Ref Test Analysis Performed At Patholo gist Range Method Time Signature Bacterial STAPHYLOCOCCUS EPIDERMIDIS 09/30/2021 DT L Culture, One [place] 2:35 PM CDT Aerobic + (A) Susc Comment: Semi-Urgent Result. Semi-Urgent This is a semi-urgent result [facility] - ([facility]) [facility] S Specimen Anatomical Collection Method Collection Time Receive d Time (Source) Location / / Volume Laterality Fluid (Synovial 09/25/2021 1:48 PM 2020 3:42 Fluid, Left CDT PM CDT Shoulder) Comment: Specimen Source Site: Fluid Narrative [facility] - 09/30/2021 2:35 PM CDT Fungal and [...] - GENERAL O MARY Performing Organization Address [facility] Phon e Number [facility] - [address] [place] [address] Bacterial Culture, Anaerobic + Susc (09/25/2021 1:48 PM CDT) [facility] Method Time Signature Bacterial No growth 10/09/2021 DTL Culture, after 14 7:41 AM MIG TIG WELDER Anaerobic + days of Susc incubation. Specimen Anatomical Collection Method Collection Time Receive d Time (Source) Location / / Volume Laterality Fluid (Synovial 09/25/2021 1:48 PM 2020 3:42 Fluid, Left CDT PM CDT Shoulder) Comment: Specimen Source Site: Fluid Narrative [facility] - 10/09/2021 7:41 AM MIG TIG WELDER Fungal and Mycobacteria specimens plated for culture, volume inadequate for optimal recovery. Alfredo Kamara LAB MICROBIOLOGY - GENERAL O MARY Performing Organization Address [facility] Phon e Number [facility] - [address] (ABNORMAL) Broad Range Bacteria PCR+Sequencing (09/25/2021 1:48 PM CDT) Component Value Ref Test Analysis Performed At [facility] Range Method Time Signature Broad Range This test was developed and its performance characteri stics 10/06/2021 DTL Bacteria determined by [facility] in a manner consistent with 1:24 PM MIG TIG WELDER PCR+Sequencin CLIA requirements. This test has not been cleared or g approved by the U.S. Food and Drug Administration. (A) Broad Range STAPHYLOCOCCUS EPIDERMIDIS 10/06/2021 DTL Bacteria DNA detected 1:24 PM MIG TIG WELDER PCR+Sequencin (A) g Comment: Semi-Urgent Result. Semi-Urgent This is a semi-urgent result [facility] - [facility] Specimen Anatomical Collection Method Collection Time Receive d Time (Source) Location / / Volume Laterality Fluid (Synovial 09/25/2021 1:48 PM 2020 3:42 Fluid, Left CDT PM CDT Shoulder) Comment: Specimen Source Site: Fluid Narrative [facility] - 10/06/2021 1:24 PM MIG TIG WELDER Fungal and Mycobacteria specimens plated for culture, volume inadequate for optimal recovery. Alfredo Kamara LAB MICROBIOLOGY - GENERAL O RDERABLES Performing Organization Address City/[facility]/ZIP [facility] Phon e Number [facility] - [address] [place] [address] Crystal Identification, Synovial Fluid (09/25/2021 1:48 PM CDT) Analysis [facility] Time Signature Crystal ID, None [...] AND STOOLS O RDERABLES Performing Organization Address City/[facility] Code Phon e Number [facility] - [address] [place] [phone] Fungal Culture, Routine (09/25/2021 1:48 PM CDT) [facility] Method Time Signature Fungal No growth 10/20/2021 DT Culture, after 24 1:01 AM MIG TIG WELDER Routine days of incubation. Specimen Anatomical Collection Method Collection Time Receive d Time (Source) Location / / Volume Laterality Fluid (Synovial 09/25/2021 1:48 PM 2020 3:42 Fluid, Left CDT PM CDT Shoulder) Comment: Specimen Source Site: Fluid Narrative [facility] - 10/20/2021 1:01 AM MIG TIG WELDER Fungal and Mycobacteria specimens plated for culture, volume inadequate for optimal recovery. Alfredo Kamara LAB MICROBIOLOGY - GENERAL O MARY Performing Organization Address [facility] Phon e Number [facility] - [address] Mycobacterial Culture (09/25/2021 1:48 PM CDT) [employer] gist Method Time Signature Mycobacterial No growth 11/07/2021 DTL Culture after 42 1:03 AM MIG TIG WELDER days of incubation . Specimen Anatomical Collection Method Collection Time Receive d Time (Source) Location / / Volume Laterality Fluid (Synovial 09/25/2021 1:48 PM 2020 3:42 Fluid, Left CDT PM CDT Shoulder) Comment: Specimen Source Site: Fluid Narrative [facility] - 11/07/2021 1:03 AM MIG TIG WELDER Fungal and Mycobacteria specimens plated for culture, volume inadequate for optimal recovery. Alfredo Kamara LAB MICROBIOLOGY - GENERAL O MARY Performing Organization Address [facility] Phon e Number [facility] - [address] documented in this encounter Visit Diagnoses [...]
--- OUTSIDE RECORDS SUMMARY | 2022-11-06 15:32 | XMS_ITS | Encounter Summary ---
:1965 Author Organization [facility] Address [address] [place] [address] Care Team Providers Name Role Phone Unavailable Primary Care Provider Unavailable Reason for Referral Outpatient (Routine) - Closed Specialty Diagnoses / Procedures Referred By Contact Refer red To Contact Anesthesiology Diagnoses Preoperative Exam Painful Total Joint Arthroplasty Initial ([facility]) Alfredo Herrera [facility] Le[place].Fernando-CBritton [address] [place] [address] Referral ID Status Reason Start Date Expiration Date Visits Requ ested Visits Authorized [id number] Closed 10/13/2021 10/13/2022 1 1 Y MAKER Outpatient (Routine) - Closed Specialty Diagnoses / Procedures Referred By Contact Refer red To Contact Orthopedic Surgery Diagnoses Preoperative Exam Painful Total Joint Arthroplasty Initial ([facility]) Alfredo Herrera [place] Diana.Fernando-CBritton [address] [place] [address] Referral ID Status Reason Start Date Expiration Date Visits Requ ested Visits Authorized [id number] Closed 10/13/2021 10/13/2022 1 1 Y MAKER Reason for Visit Reason Comments pre op orders L shldr Encounter Details Date Type Department Care Team Description 10/12/2021 Clinical Communication Department of Jam pre op orders G[facility]ell Orthopedic Surgery Lilian Alex) in [place], [facility] [address] [place], [place] 200 [facility] [address] [place], [place] [phone] (Work) [phone] Social History Tobacco Use Types Packs/Day Years [...] you attend islam or Patient refused 2021 yazidi services? Do [...] and see me Surgery date: December 30 Y MAKER documented in this encounter Plan of Treatment Scheduled Referrals Name Type Priority Associated Diagnoses Order S [facility] Orthopedic Surgery Outpatient Referral Routine Preoperat lalo Exam Expected: Pre Op (clinic) Painful Total Joint 12/29 Arthroplasty Initial (Approx imate), (HCC) Expires: 10/12/2024 Preoperative Outpatient Referral Routine Preoperative Exam Expected: Evaluation NESHA Painful Total Joint 2021 consult (clinic) Arthroplasty Initial (Ap proximate), (HCC) Expires: 10/12/2024 documented as of this encounter Results (ABNORMAL) Basic Metabolic Panel (12/29/2021 11:34 AM SPRAY MAKER) P athologist Signature Potassium, S 4.7 3.6 - 5.2 12/29/2021 DTL mmol/L 12:38 PM SPRAY MAKER Sodium, S 143 135 - 145 12/29/2021 DTL mmol/L 12:38 PM SPRAY MAKER Chloride, S 108 (H) 98 - 107 12/29/2021 DTL mmol/L 12:38 PM SPRAY MAKER Bicarbonate, S 24 22 - 29 12/29/2021 DTL mmol/L 12:38 PM SPRAY MAKER Anion Gap 11 7 - 15 12/29/2021 DTL 12:38 PM SPRAY MAKER BUN (Blood Urea 15 6 - 21 12/29/2021 DTL Nitrogen), S mg/dL 12:38 PM SPRAY MAKER Creatinine 0.83 0.59 - 12/29/2021 DTL 1.04 mg/dL 12:38 PM SPRAY MAKER eGFR-Non 78 >=60 12/29/2021 DTL Black/ mL/min/BSA 12:38 PM SPRAY MAKER [place] Islander Comment: ----ADDITIONAL INFORMATION---- Estimated GFR calculated using the 2009 CKD_EPI creatinine equation. eGFR-Black/ 90 >=60 mL/min/BSA 02/01/ 2022 12:38 PM SPRAY MAKER DTL Comment: ----ADDITIONAL INFORMATION---- Estimated GFR calculated using the 2009 CKD_EPI creatinine equation. Calcium, Total, S 9.1 8.6 - 10.0 mg/dL 12/29/2021 12:3 8 PM SPRAY MAKER DTL Glucose, S 90 70 - 140 mg/dL 12/29/2021 12:38 PM SPRAY MAKER DTL Specimen Anatomical Collection Method Collection Time Receive d Time (Source) Location / / Volume Laterality Blood (Blood, 12/29/2021 11:34 12/29/2021 Venous) AM SPRAY MAKER 12:13 PM SPRAY MAKER Alfredo Kamara LAB BLOOD ADD-ON Performing Organization Address City/[facility] [place]/[facility] Phon e Number [facility] - [address] [place] [address] Laboratories-[address] Type and Screen (with reflex Antibody ID) (12/29/2021 11:34 AM SPRAY MAKER) [facility] [employer] Method Time Signature ABORh A Neg Not applicable 12/29/2021 ETRM 12:59 PM SPRAY MAKER Antibody CANCELED 12/29/2021 ETRM Screen 12:59 PM SPRAY MAKER Comment: Result canceled by the ancillar y. Type & Screen Expiration 02/26/2022 23:59 12/29/19 22 12:59 PM SPRAY MAKER ETRM Testing Location Ara DEFAULT 12/29/2021 11:58 AM SPRAY MAKER ETRM Specimen Anatomical Collection Method Collection Time Receive d Time (Source) Location / / Volume Laterality Blood (Blood, 12/29/2021 11:34 12/29/2021 Venous) AM SPRAY MAKER 11:58 AM SPRAY MAKER Alfredo Kamara LAB BLOOD BANK TEST ORDERABL ES Performing Organization Address City/[facility] Phon e Number [facility] - [address]TR[address] (ABNORMAL) CBC with Differential, Blood (12/29/2021 11:34 AM SPRAY MAKER) [facility] [employer] Method Time Signature Hemoglobin 11.2 (L) 11.6 - 12/29/2021 DTL 15.0 g/dL 12:02 PM SPRAY MAKER Hematocrit 34.1 (L) 35.5 - 12/29/2021 DTL 44.9 % 12:02 PM SPRAY MAKER Erythrocytes 4.04 3.92 - 12/29/2021 DTL 5.13 12:02 PM SPRAY MAKER x10(12)/L MCV 84.4 78.2 - 12/29/2021 DTL 97.9 fL 12:02 PM SPRAY MAKER RBC Distrib Width 20.2 (H) 12.2 - 12/29/2021 DTL 16.1 % 12:02 PM SPRAY MAKER Platelet Count 324 157 - 371 12/29/2021 DTL x10(9)/L 12:02 PM SPRAY MAKER Leukocytes 5.1 3.4 - 9.6 12/29/2021 DTL x10(9)/L 12:02 PM SPRAY MAKER Neutrophils 3.08 1.56 - 12/29/2021 DTL 6.45 12:02 PM SPRAY MAKER x10(9)/L Lymphocytes 1.39 0.95 - 12/29/2021 DTL 3.07 12:02 PM SPRAY MAKER x10(9)/L Monocytes 0.43 0.26 - 12/29/2021 DTL 0.81 12:02 PM SPRAY MAKER x10(9)/L Eosinophils 0.17 0.03 - 12/29/2021 DTL 0.48 12:02 PM SPRAY MAKER x10(9)/L Basophils 0.05 0.01 - 12/29/2021 DTL 0.08 12:02 PM SPRAY MAKER x10(9)/L Specimen Anatomical Collection Method Collection Time Receive d Time (Source) Location / / Volume Laterality Blood (Blood, 12/29/2021 11:34 12/29/2021 Venous) AM SPRAY MAKER 11:54 AM SPRAY MAKER Alfredo Kamara LAB BLOOD ADD-ON Performing Organization Address City/State/ZIP Code Phon e Number [facility] - [address] [place], [place] [address] [facility] [place] [place] [address] [facility] [address] SARS Coronavirus 2, Molecular Detection, PCR, Varies Asymptomatic (12/29/2021 11:11 AM SPRAY MAKER) [facility] Method Time Signature COVID-19, Swab, 12/29/2021 DTL PCR, Source Nasopharynx 4:19 PM SPRAY MAKER COVID-19, Undetected Undetected 12/29/2021 DTL PCR, Result 4:19 PM SPRAY MAKER Comment: SARS-CoV-2 RNA absent. This result does not rule out COVID-19 in the patient, as the sensitivity of the test depends o n the timing of the specimen collection and quality of the specimen. Result should be correlated with patient's history and clinical presentat ion. ----ADDITIONAL INFORMATION---- This RT-PCR test using the [employer] SARS-Co V-2 Assay ( i[employer]ento) performed on the [employer] Two Module System has received Emergency Use Authorization (EUA) by the U.S. Food and Drug Administration, and is modified from the workers' compensation claims supervisor's instructions with a bridging study. Performance characteristics were verifie d by [facility] in a manner consistent with CLIA requirements. Visit the CDC website: https://www.cdc.g ov/coronavirus/ for the most recent guidelines on [facility] virus testing. Fact Sheet for Healthcare Providers: https://www.fda.gov/media/286484/downloa d Fact Sheet for Patients: https://www.fda.gov/media/401129/downloa d Specimen Anatomical Collection Method Collection Time Receive d Time (Source) Location / / Volume Laterality Varies 12/29/2021 11:11 12/29/2021 (Nasopharynx) AM SPRAY MAKER 12:03 PM SPRAY MAKER Alfredo Kamara LAB MICROBIOLOGY - GENERAL O RDERABLES Performing Organization Address City/State/ZIP Code Phon e Number [facility] - [address] [place], [place] [address] [facility] [place] [address] [facility] [address] DX Shoulder Left 2+ Views (12/29/2021 10:30 AM SPRAY MAKER) Anatomical Region Laterality Modality Upper Extremity, Shoulder, Musculoskeletal RST LOS, Left Digital Radiography Musculoskeletal ARZ LOS, Muskuloskeletal FLA LOS Specimen (Source) Anatomical Collection Method Collection Time Re ceived Time Location / / Volume Laterality 12/29/2021 10:53 AM SPRAY MAKER Impressions 12/29/2021 10:57 AM SPRAY MAKER Demineralization. Left shoulder arthroplasty revision to a reverse TSA. Developing lucency about the glenoi d component screws when compared back to 11/13/20, compatible with loosening. Pre sumed distal clavicle resection. Incompletely imaged instrumented spinal fusion from the upper cervical spine to the upper thoracic spine. Spinal cord st imulator. At least one old healed left posterior rib fracture. Narrative 12/29/2021 10:57 AM SPRAY MAKER EXAM: ??DX SHOULDER LEFT 2+ VIEWS Procedure [...]
--- OUTSIDE RECORDS SUMMARY | 2022-11-06 15:32 | XMS_ITS | Encounter Summary ---
:1965 Author Organization [facility] Address [address] [place] [address] Care Team Providers Name Role Phone Elsewhere, Pcp Primary Care Provider Unavailable Reason for Visit Reason Comments Pre-op Exam Outpatient (Routine) - Closed Specialty Diagnoses / Procedures Referred By Contact Refer red To Contact Orthopedic Surgery Diagnoses Preoperative Exam Painful Total Joint Arthroplasty Initial (HCC) Alfredo Herrera [facility] [address] [place] [phone] Referral ID Status Reason Start Date Expiration Date Visits Requ ested Visits Authorized [id number] Closed 10/13/2021 10/13/2022 1 1 Encounter Details Date Type Department Care Team Description 12/29/2021 Office Visit Department of Cyrus Polk Pain Shoulde r Left (Primary Dx); Orthopedic Surgery in Lilian Souza Preoperative Exam; [place], [place] [address] [place] [address] Painful Total Joint Arthroplasty Initial (HCC) [address] [place] [phone] Social History Tobacco Use Types Packs/Day Years [...] may involve the use of a medical sales representative made by a Veristormvidya I or one of my partners have collaborated to design, develop, or improve orthopedic implants, instruments, or products. Both the [facility] and the individual surgeons involved receive royalty payments from the use of those specific devices at other institutions, but no royalties or any other payments are paid for the use of those devices with any [facility] patient. The clinical rationale for the use of those devices as well as the availability and applicability of alternative devices was reviewed. He understands that the final decision for the use of a specific medical sales representative often is made at the time of surgery. All of his questions were answered; he understands and agrees with my approach to device selection and wants to proceed. ING SERVICES OFFICER documented in this encounter Plan of Treatment Not on filedocumented as of this encounter Visit Diagnoses Diagnosis Pain Shoulder Left - Primary Preoperative Exam Painful Total Joint Arthroplasty Initial (HCC) documented in this encounter Additional Health Concerns Infection Onset Date Last Indicated Resolved Time COVID19 Pending 12/29/2021 12/29/2021 12/29/2021 4:20 PM BANKING SERVICES OFFICER Assessment Noted Time PHQ-9 Depression Total Score: 16 02/11/2021 12:00 AM C DT documented as of this encounter Care Teams Cow Rider Relationship Specialty Start Date End Date Elsewhere, Pcp PCP - General Family Medicine 12/25/21 documented as of this encounter
--- OUTSIDE RECORDS SUMMARY | 2022-11-06 15:32 | XMS_ITS | Encounter Summary ---
:1965 Author Organization [facility] Address [address] [place] [address] Care Team Providers Name Role Phone Unavailable Primary Care Provider Unavailable Reason for Visit Outpatient (Routine) - Closed Specialty Diagnoses / Procedures Referred By Contact Refer red To Contact Neurology Robert Diehl M. D. [facility] [address] [place] [phone] Referral ID Status Reason Start Date Expiration Date Visits Requ ested Visits Authorized [id number] Closed 09/15/2020 09/15/2021 1 1 Encounter Details Date Type Department Care Team Description 11/18/2021 Virtual Visit Department of Robert Diehl Stroke Cere brovascular Neurology jimmy Celaya M.D. Accident Personal [place], [place] [address] [place] [address] History (Primary Dx) [address] [place] [phone] Social History Tobacco Use Types Packs/Day Years [...] you attend buddhist or Patient refused 2021 scientologist services? Do you belong to any clubs or No 05/17/2022 organizations such as buddhist groups, unions, [employer] or athletic groups, or school groups? [...] 19 pandemic patient not seen in a bfib-nh-[id number] manner. This is a 56-year-old woman with [...] antibiotics she has not been seen by [facility] Orth[facility] Department who are planning a [...] by: Robert Diehl M.D. 11/18/21 11:46 AM HAND TUBE WINDER Diagnosis Plan 1. Stroke Cerebrovascular Accident Personal History TUBE WINDER documented in this encounter Plan of Treatment Not on filedocumented as of this encounter Visit Diagnoses Diagnosis Stroke Cerebrovascular Accident Personal History - Primary documented in this encounter Additional Health Concerns Assessment Noted Time PHQ-9 Depression Total Score: 16 02/11/2021 12:00 AM C DT documented as of this encounter
--- OUTSIDE RECORDS SUMMARY | 2022-11-06 15:32 | XMS_ITS | Encounter Summary ---
:1965 Author Organization [facility] Address [address] [place] [address] Care Team Providers Name Role Phone Unavailable Primary Care Provider Unavailable Reason for Referral MRI/CAT/PET Scan (Routine) - Closed Specialty Diagnoses / Procedures Referred By Contact Refer red To Contact Radiology Diagnoses Painful Total Joint Arthroplasty Initial ([facility]) Alfredo Herrera [facility] CT Shoulder Left without IV Contrast O.P.A.-C. [address] [place] [address] [phone] Referral ID Status Reason Start Date Expiration Date Visits Requ ested Visits Authorized [id number] Closed 09/07/2021 09/07/2022 1 1 Reason for Visit MRI/CAT/PET Scan (Routine) - Closed Specialty Diagnoses / Procedures Referred By Contact Refer red To Contact Radiology Diagnoses Painful Total Joint Arthroplasty Initial ([facility]) Alfredo Herrera [facility] Procedures CT Shoulder Left without IV Contrast O.P.A.-C. [address] [place] [address] [phone] Referral ID Status Reason Start Date Expiration Date Visits Requ ested Visits Authorized [id number] Closed 09/07/2021 09/07/2022 1 1 Encounter Details Date Type Department Care Team Description 09/25/2021 Hospital Encounter Department of Alfredo Herrera Painful Total Joint Radiology, Roxana HillCBritton Arthroplasty Initial Building, in [address] [place] [address] ([facility]) [facility] [address] 200 [facility] [phone] [place], [place] (Work) [phone] Social History Tobacco Use Types Packs/Day Years [...] you attend restorationist or Patient refused 2021 judaism services? Do [...]
--- OUTSIDE RECORDS SUMMARY | 2022-11-06 15:32 | XMS_ITS | Encounter Summary ---
:1965 Author Organization [facility] Address [address] [place] [address] Care Team Providers Name Role Phone Unavailable Primary Care Provider Unavailable Reason for Visit Reason Comments Communication results Encounter Details Date Type Department Care Team Description 10/05/2021 Clinical Communication Department of Rossy Polk Orthopedic Surgery Cyrus Souza M.D. (results) in [address] [place] [phone] Social History Tobacco Use Types Packs/Day Years [...] and very difficult nature of her problem. Cyurs Polk M.D. CT CT Job ID: [id number] [employer] MECH[employer]IC documented in this encounter Miscellaneous Notes Telephone Encounter - Sosa Laughlin - 10/05/2021 3:17 PM CST Please list patient for 12/30/21. Thank you A AND P MECHANIC Telephone Encounter - Cyrus Polk M.D. - 10/05/2021 11:37 AM CST Dx: left infected shoulder arthroplasty Procedure: left resection shoulder arthroplasty UE82, NESHA, and see me Surgery date: December 30 Thank you A AND P MECHANIC Telephone Encounter - Radha Suh - 10/05/2021 11:18 AM CST Ms. Mosquera calls for results of labs, CT and aspiration results ( She is disappointment no one has reached out to her and that she had to call for these) Please call her with results to date A AND P MECHANIC documented in this encounter Plan of Treatment Not on filedocumented as of this encounter Visit Diagnoses Not on filedocumented in this encounter Additional Health Concerns Assessment Noted Time PHQ-9 Depression Total Score: 16 02/11/2021 12:00 AM C DT documented as of this encounter
--- OUTSIDE RECORDS SUMMARY | 2022-11-06 15:32 | XMS_ITS | Encounter Summary ---
:1965 Author Organization [facility] Address [address] [place] [address] Care Team Providers Name Role Phone Unavailable Primary Care Provider Unavailable Reason for Referral MRI/CAT/PET Scan (Routine) - Authorized Specialty Diagnoses / Procedures Referred By Contact Refer red To Contact Radiology Diagnoses Stroke Cerebrovascular Accident Personal History Occlusion Vertebral Artery With lnfarction (HCC) Robert Diehl M.D. [facility] Procedures MR Neck Angiogram without and with IV Contrast [address] [place] [address] Referral ID Status Reason Start Date Expiration Date Visits V isits Requested Authorized [id number] Authorized 12/10/2021 12/10/2022 1 1 TAL MEDIA INTERN Outpatient (Routine) - Authorized Specialty Diagnoses / Procedures Referred By Contact Refer red To Contact Diagnoses Aneurysm Cerebral Unruptured (HCC) Robert Diehl M.D. [facility] Procedures PM Device interrogation (clinic) [address] [place] [address] Referral ID Status Reason Start Date Expiration Date Visits V isits Requested Authorized [id number] Authorized 12/10/2021 12/10/2022 1 1 TAL MEDIA INTERN MRI/CAT/PET Scan (Routine) - Authorized Specialty Diagnoses / Procedures Referred By Contact Refer red To Contact Radiology Diagnoses Aneurysm Cerebral Unruptured (HCC) Robert Diehl M.D. [facility] Procedures MR Brain Angiogram without IV Contrast [address] [place] [address] Referral ID Status Reason Start Date Expiration Date Visits V isits Requested Authorized [id number] Authorized 12/10/2021 12/10/2022 1 1 TAL MEDIA INTERN Reason for Visit Reason Comments Michel Encounter Details Date Type Department Care Team Description 12/10/2021 Clinical Communication Department of Robert Diehl [facility] [place], [place] [address] [facility] [address] [place] [phone] Social History Tobacco Use Types Packs/Day Years [...] you attend druze or Patient refused 2021 amish services? Do [...] 2:58 PM CST Signed and thank you. TAL MED[employer] INTERN documented in this encounter Plan of Treatment Scheduled Orders Name Type Priority Associated Diagnoses Order S chedule MR Brain Angiogram Imaging RAD - Routine Aneurysm Cerebral Exp ected: without IV Contrast (most inpatients Unruptured ([facility]) 05/03/2022, and all Expires: outpatients) 03/10/2023 PM Device Procedures Routine Aneurysm Cerebral Expected: interrogation Unruptured ([facility]) 12/29/2021 , (clinic) Expires: 03/10/2023 MR Neck Angiogram Imaging RAD - Routine Stroke Cerebrovascular Expected: without and with IV (most inpatients Accident Personal 05/03/2022 Contrast and all History (Approximate), outpatients) Occlusion Vertebral Expires: Artery With lnfarction 03/10 ([facility]) documented as of this encounter Visit Diagnoses Diagnosis Stroke Cerebrovascular Accident Personal History - Primary Aneurysm Cerebral Unruptured ([facility]) Occlusion Vertebral Artery With lnfarcti on ([facility]) documented in this encounter Additional Health Concerns Assessment Noted Time PHQ-9 Depression Total Score: 16 02/11/2021 12:00 AM C DT documented as of this encounter
--- OUTSIDE RECORDS SUMMARY | 2022-11-06 15:32 | XMS_ITS | Encounter Summary ---
:1965 Author Organization [facility] Address [address] [place] [address] Care Team Providers Name Role Phone Unavailable Primary Care Provider Unavailable Reason for Visit MRI/CAT/PET Scan (Routine) - Canceled Specialty Diagnoses / Procedures Referred By Contact Refer red To Contact Radiology Diagnoses Aneurysm Cerebral Unruptured (HCC) Robert Diehl M.D. [facility] Procedures MR Brain Angiogram without IV Contrast [address] [place] [address] Referral ID Status Reason Start Date Expiration Date Visits V isits Requested Authorized [id number] Canceled 09/15/2020 09/15/2021 1 1 Encounter Details Date Type Department Care Team Description 09/18/2021 Hospital Encounter Department of Robert Diehl ed (Patient: Radiology, Severiano Celaya M.D. Request) [facility], [address] [place], [place] [address] [place] [phone] [place], [place] [phone] (Work) [phone] Social History Tobacco Use Types Packs/Day Years [...] you attend anglican or Patient refused 2021 baptist services? Do you belong to any clubs or No 05/17/2022 organizations such as anglican groups, unions, fraBook[employer] or athletic groups, or school groups? How [...]
--- OUTSIDE RECORDS SUMMARY | 2022-11-06 15:32 | XMS_ITS | Encounter Summary ---
:1965 Author Organization [facility] Address [address] [place] [address] Care Team Providers Name Role Phone Unavailable Primary Care Provider Unavailable Reason for Visit Reason Comments Michel Encounter Details Date Type Department Care Team Description 11/25/2021 Clinical Communication Department of Chani Benjamin Neurologic Surgery in Lilian Jang, [place], [place] Ph.D. [address] [place] [address] 200 [place] [phone] [phone] Social History Tobacco Use Types Packs/Day Years [...] you attend adventist or Patient refused 2021 taoism services? Do [...] for your help. Boris Neurosurgery Appointment Office [phone] Please respond to the RST YEYO SCHEDULING Pool Thank You ECUE COOK documented in this encounter Plan of Treatment Not on filedocumented as of this encounter Visit Diagnoses Not on filedocumented in this encounter Additional Health Concerns Assessment Noted Time PHQ-9 Depression Total Score: 16 02/11/2021 12:00 AM C DT documented as of this encounter
--- OUTSIDE RECORDS SUMMARY | 2022-11-06 15:32 | XMS_ITS | Encounter Summary ---
:1965 Author Organization [facility] Address [address] [place] [address] Care Team Providers Name Role Phone Unavailable Primary Care Provider Unavailable Reason for Visit Reason Comments Pain Appointment Request (Routine) - Closed Specialty Diagnoses / Procedures Referred By Contact Refer red To Contact Orthopedic Surgery Diagnoses Arthroplasty Total Shoulder Replacement Status Post Left David Cohn M.D. [address] [place] [address] Referral ID Status Reason Start Date Expiration Date Visits Requ ested Visits Authorized [id number] Closed 09/04/2021 09/04/2022 1 1 Encounter Details Date Type Department Care Team Description 09/23/2021 Comprehensive Visit Department of Cyrus Polk Pain Shoulder Left Orthopedic Surgery Lilian Souza (Primary Dx) in [place], [address] [place] [address] [place] [address] [place], [place] [phone] (Work) [phone] Social History Tobacco Use Types Packs/Day Years [...] you attend mu-ism or Patient refused 2021 worship services? Do you belong to any clubs or No 05/17/2022 organizations such as mu-ism groups, unions, fraTrends Brands or athletic groups, or school groups? How [...]
--- OUTSIDE RECORDS SUMMARY | 2022-11-06 15:32 | XMS_ITS | Encounter Summary ---
:1965 Author Organization [facility] Address [address] [place] [address] Care Team Providers Name Role Phone Unavailable Primary Care Provider Unavailable Encounter Details Date Type Department Care Team Description 11/25/2021 Clinical Communication Department of Yesenia, Guillermo Alvarado, Neurologic Surgery in [place], [place] [address] [place] [address] [address] [place] [phone] [phone] Social History Tobacco Use Types Packs/Day Years [...] you attend presybeterian or Patient refused 2021 tenriism services? Do [...] be seen through ED, or local provider/neurology. COVERER documented in this encounter Plan of Treatment Not on filedocumented as of this encounter Visit Diagnoses Not on filedocumented in this encounter Additional Health Concerns Assessment Noted Time PHQ-9 Depression Total Score: 16 02/11/2021 12:00 AM C DT documented as of this encounter
--- OUTSIDE RECORDS SUMMARY | 2022-11-06 15:32 | XMS_ITS | Encounter Summary ---
:1965 Author Organization [facility] Address [address] [place] [address] Care Team Providers Name Role Phone Elsewhere, Pcp Primary Care Provider Unavailable Reason for Visit Outpatient (Routine) - Closed Specialty Diagnoses / Procedures Referred By Contact Refer red To Contact Anesthesiology Diagnoses Preoperative Exam Painful Total Joint Arthroplasty Initial (HCC) Alfredo Herrera [facility] O.P.A.-CBritton [address] [place] [phone] Referral ID Status Reason Start Date Expiration Date Visits Requ ested Visits Authorized [id number] Closed 10/13/2021 10/13/2022 1 1 Encounter Details Date Type Department Care Team Description 12/29/2021 Comprehensive Visit Preoperative Cayetano Herrera O.P.A.-CBritton [address] [place] [phone] Preanesthetic Medical Exam (Primary Dx); Evaluation Center Etta Lyle M.D. 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 Do [...] Comments Blood Pressure 125/78 12/29/2021 1:21 PM [employer] Pulse 64 12/29/2021 1:21 PM [employer] Temperature 36.1 ??C (97 ??F) 12/29/2021 1:01 PM [employer] Respiratory Rate - - Oxygen Saturation 97% 12/29/2021 1:21 PM [employer] Inhaled Oxygen Concentration - - Weight 72.6 kg (160 lb 0.9 oz) 12/29/2021 1:01 PM [employer] Height 152 cm (4' 11.84) 12/29/2021 1:01 PM [employer] Body Mass Index 31.42 12/29/2021 1:01 PM [employer] documented in this encounter H&P Notes Etta [...] Vertebral Artery ([facility]) # Aneurysm Cerebral Unruptured ([facility]) # Dissection Vertebral Artery ([facility]) # 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 Written and verbal instructions given on medication [...] Lyle M.D. PGY-3, Anesthesiology and Perioperative Medicine [facility] [employer] documented in this encounter Plan of Treatment [...] COVID19 Pending 12/29/2021 12/29/2021 12/29/2021 4:20 PM [employer] Assessment Noted Time PHQ-9 Depression Total Score: 16 02/11/2021 12:00 AM C DT documented as of this encounter Care Teams Foreign Language Interpreter Relationship Specialty Start Date End Date Elsewhere, Pcp PCP - General Family Medicine 12/25/21 documented as of this encounter
--- OUTSIDE RECORDS SUMMARY | 2022-11-06 15:33 | XMS_ITS | Encounter Summary ---
:1965 Author Organization [facility] Address [address] [place] [address] Care Team Providers Name Role Phone Unavailable Primary Care Provider Unavailable Reason for Visit Reason Comments Pre-visit Intake Encounter Details Date Type Department Care Team Description 03/11/2021 Clinical Communication Department of [facility], Pre- visit Intake Neurologic Surgery Lilian Jang, in [place], Ph.D. [address] [place] [phone] [phone] Social History Tobacco Use Types Packs/Day Years [...] you attend mandaen or Patient refused 2021 episcopal services? Do [...]
--- OUTSIDE RECORDS SUMMARY | 2022-11-06 15:33 | XMS_ITS | Encounter Summary ---
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 [facility] Procedures CT Head Neck Angiogram with IV Contrast [address] [place] [phone] Referral ID Status Reason Start Date Expiration Date Visits Requ ested Visits Authorized [id number] Closed 02/17/2021 02/17/2022 1 1 Encounter Details Date Type Department Care Team Description 03/12/2021 Hospital Encounter Department of Jeannette Cote ebral Infarction Radiology, Severiano Souza M.D. Due To Embolism Building, in [address] [place], [place] Artery (HCC) [place] [address] [phone] [place], [place] (Work) [phone] [phone] Social History Tobacco Use Types Packs/Day Years [...] you attend restoration or Patient refused 2021 buddhism services? Do [...] N/A C omputed Tomography, Computed Neuroradiology [facility], Neuroradiology T omography [facility] Specimen (Source) Anatomical Collection [...] ane urysms. 3. 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 Otherwise yurok of Wi llis is intact. 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 Otherwise yurok of Wi llis is intact. Dolichoectasia of [...] ane urysms. 3. 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 Jeannette NIELSON [...]
--- OUTSIDE RECORDS SUMMARY | 2022-11-06 15:33 | XMS_ITS | Encounter Summary ---
:1965 Author Organization [facility] Address [address] [place] [address] Care Team Providers Name Role Phone Unavailable Primary Care Provider Unavailable Reason for Referral MRI/CAT/PET Scan (Routine) - Closed Specialty Diagnoses / Procedures Referred By Contact Refer red To Contact Radiology Diagnoses Pain Wrist Left Michael Noble Jr., [facility] Procedures MR Wrist Left without IV Contrast P.A.-C. 200 [place], [place] [phone] Referral ID Status Reason Start Date Expiration Date Visits Requ ested Visits Authorized [id number] Closed 03/17/2021 03/17/2022 1 1 Reason for Visit MRI/CAT/PET Scan (Routine) - Closed Specialty Diagnoses / Procedures Referred By Contact Refer red To Contact Radiology Diagnoses Pain Wrist Left Michael Noble Jr., [facility] Procedures MR Wrist Left without IV Contrast P.A.-C. [address] [place] [phone] Referral ID Status Reason Start Date Expiration Date Visits Requ ested Visits Authorized [id number] Closed 03/17/2021 03/17/2022 1 1 Encounter Details Date Type Department Care Team Description 03/24/2021 Hospital Encounter Department of Michael Noble Wrist Left Radiology, Camelia Perez Jr..A.-CBritton [facility], in 200 [place], [place] [address] [facility] [address] [place], [place] [phone] (Work) [phone] Social History Tobacco Use Types Packs/Day Years [...] you attend episcopal or Patient refused 2021 yazidism services? Do [...]
--- OUTSIDE RECORDS SUMMARY | 2022-11-06 15:33 | XMS_ITS | Encounter Summary ---
:1965 Author Organization [facility] Address [address] [place] [address] Care Team Providers Name Role Phone Unavailable Primary Care Provider Unavailable Reason for Referral Outpatient (Routine) - Closed Specialty Diagnoses / Procedures Referred By Contact Refer red To Contact Orthopedic Surgery Dario Noel M .D. [facility] 200 [place] [address] Referral ID Status Reason Start Date Expiration Date Visits Requ ested Visits Authorized [id number] Closed 06/08/2021 06/08/2022 1 1 Physical Therapy (Routine) - Closed Specialty Diagnoses / Procedures Referred By Contact Refer red To Contact Diagnoses Dissociation Scapholunate Left Dario Noel M.D. [facility] Procedures PT or OT eval and treat (first available) [address] [place] [phone] Referral ID Status Reason Start Date Expiration Date Visits Requ ested Visits Authorized [id number] Closed 06/08/2021 06/08/2022 99 99 Outpatient (Routine) - Closed Specialty Diagnoses / Procedures Referred By Contact Refer red To Contact Diagnoses Dissociation Scapholunate Left Michael Downs M.D. [facility] Procedures ORS Cast Room Visit [address] [place] [phone] Referral ID Status Reason Start Date Expiration Date Visits Requ ested Visits Authorized [id number] Closed 05/08/2021 05/08/2022 1 1 Reason for Visit Reason Comments Cast Check Follow-up Outpatient (Routine) - Closed Specialty Diagnoses / Procedures Referred By Contact Refer red To Contact Diagnoses Dissociation Scapholunate Left Michael Downs M.D. [facility] Procedures ORS Cast Room Visit [address] [place] [phone] Referral ID Status Reason Start Date Expiration Date Visits Requ ested Visits Authorized [id number] Closed 05/08/2021 05/08/2022 1 1 Encounter Details Date Type Department Care Team Description 06/08/2021 Hospital Encounter Department of Paul Downs M.D. [address] [place] [phone] Dissociation Orthopedic Surgery Dario Noel M.D. [address] [place] [phone] Scapholunate Left in [place], [place] [address] [place] [phone] Social History Tobacco Use Types Packs/Day Years [...]
--- OUTSIDE RECORDS SUMMARY | 2022-11-06 15:33 | XMS_ITS | Encounter Summary ---
:1965 Author Organization [facility] Address [address] [place] [address] Care Team Providers Name Role Phone Unavailable Primary Care Provider Unavailable Reason for Referral Outpatient (Routine) - Closed Specialty Diagnoses / Procedures Referred By Contact Refer red To Contact Diagnoses Pain Wrist Left Michael Noble Jr., [facility] Procedures PM Device interrogation (clinic) P.A.-C. 200 [place] [address] Referral ID Status Reason Start Date Expiration Date Visits Requ ested Visits Authorized [id number] Closed 03/17/2021 03/17/2022 1 1 RI/CAT/PET Scan (Routine) - Closed Specialty Diagnoses / Procedures Referred By Contact Refer red To Contact Radiology Diagnoses Pain Wrist Left Michael Noble Jr., [facility] Procedures MR Wrist Left without IV Contrast P.A.-C. 200 [place], [place] [phone] Referral ID Status Reason Start Date Expiration Date Visits Requ ested Visits Authorized [id number] Closed 03/17/2021 03/17/2022 1 1 Encounter Details Date Type Department Care Team Description 03/17/2021 Orders Only Department of Michalik, Michael Pain Wris t Left Orthopedic Surgery in Tona Patel Jr. (Primary Dx) [place], [place] 200 [facility] [address] [place] [phone] Social History Tobacco Use Types Packs/Day Years [...] you attend lutheran or Patient refused 2021 samaritan services? Do [...]
--- OUTSIDE RECORDS SUMMARY | 2022-11-06 15:33 | XMS_ITS | Encounter Summary ---
:1965 Author Organization [facility] Address [address] [place] [address] Care Team Providers Name Role Phone Unavailable Primary Care Provider Unavailable Reason for Visit Reason Comments pain medication Encounter Details Date Type Department Care Team Description 06/04/2021 Clinical Communication Department of Bert, Dario willard medication Orthopedic Surgery Lilian Alejo in [place], [address] [place] [address] [place] [address] [place], [place] [phone] (Work) [phone] Social History Tobacco Use Types Packs/Day Years [...] you attend jewish or Patient refused 2021 confucianism services? Do [...] meds/scripts. Patient would like a call - [phone] documented in this encounter Plan of Treatment Not on filedocumented as of this encounter Visit Diagnoses Not on filedocumented in this encounter Additional Health Concerns Assessment Noted Time PHQ-9 Depression Total Score: 16 02/11/2021 12:00 AM C DT documented as of this encounter
--- OUTSIDE RECORDS SUMMARY | 2022-11-06 15:33 | XMS_ITS | Encounter Summary ---
:1965 Author Organization [facility] Address [address] [place] [address] Care Team Providers Name Role Phone Unavailable Primary Care Provider Unavailable Reason for Visit Physical Therapy (Routine) - Closed Specialty Diagnoses / Procedures Referred By Contact Refer red To Contact Diagnoses Dissociation Scapholunate Left Dario Noel M.D. [facility] Procedures PT or OT eval and treat (first available) [address] [place] [address] Referral ID Status Reason Start Date Expiration Date Visits Requ ested Visits Authorized [id number] Closed 06/08/2021 06/08/2022 99 99 Encounter Details Date Type Department Care Team Description 06/08/2021 Clinical Support Department of Physical German Noel M.D. [address] [place] [phone] Pain Wrist Left (Primary Dx); Medicine and Veena Quevedo M.S., C.H.T., O.T. [address] [place] [phone] Dissociation Scapholunate Left Rehabilitation in [place], [place] [address] [place] [phone] Social History Tobacco Use Types Packs/Day [...] you attend caodaism or Patient refused 2021 yazdanism services? Do [...] (HCC) ??? Nicotine Dependence Unspecified ??? 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 Active Hand Exercises (Six Pack) [id number]. Active Wrist Exercises [id number] Assessment Clinical Impression: The patient tolerated the [...]
--- OUTSIDE RECORDS SUMMARY | 2022-11-06 15:33 | XMS_ITS | Encounter Summary ---
:1965 Author Organization [facility] Address 200 [place] [address] Care Team Providers Name Role Phone Unavailable Primary Care Provider Unavailable Reason for Referral Outpatient (Routine) - Closed Specialty Diagnoses / Procedures Referred By Contact Refer red To Contact Diagnoses Painful Total Joint Arthroplasty Initial (HCC) Alfredo Herrera [place] Procedures US Major Joint Aspiration and or Injection Left O.P.A.-C. 200 [place] [address] Referral ID Status Reason Start Date Expiration Date Visits Requ ested Visits Authorized [id number] Closed 09/07/2021 09/07/2022 1 1 Outpatient (Routine) - Closed Specialty Diagnoses / Procedures Referred By Contact Refer red To Contact Diagnoses Painful Total Joint Arthroplasty Initial (HCC) Alfredo Herrera [place] Procedures US Musculoskeletal Shoulder Left O.P.A.-C. 200 [place] [address] Referral ID Status Reason Start Date Expiration Date Visits Requ ested Visits Authorized [id number] Closed 09/07/2021 09/07/2022 1 1 MRI/CAT/PET Scan (Routine) - Closed Specialty Diagnoses / Procedures Referred By Contact Refer red To Contact Radiology Diagnoses Painful Total Joint Arthroplasty Initial (HCC) Alfredo Herrera [place] Procedures CT Shoulder Left without IV Contrast O.Kevin. [address] [place] [address] Referral ID Status Reason Start Date Expiration Date Visits Requ ested Visits Authorized [id number] Closed 09/07/2021 09/07/2022 1 1 Reason for Visit Reason Comments Pre-visit Testing Orders L shldr - prev. TSA Encounter Details Date Type Department Care Team Description 09/07/2021 Clinical Communication Department of Jam, Pre- visit Testing Orthopedic Surgery Cyrus Souza M.D. Orders (L shldr - in [place], [address] [facility] prev. TSA) [place], [place] [address] [facility] [address] [place], [place] [phone] (Work) [phone] Social History Tobacco Use Types Packs/Day Years [...] PROCEDURES Mycobacterial Culture (09/25/2021 1:48 PM CDT) Quartics Method Time Signature Mycobacterial No growth 11/07/2021 DTL Culture after 42 1:03 AM SELF PAY SPECIALIST days of incubation . Specimen Anatomical Collection Method Collection Time Receive d Time (Source) Location / / Volume Laterality Fluid (Synovial 09/25/2021 1:48 PM 2020 3:42 Fluid, Left CDT PM CDT Shoulder) Comment: Specimen Source Site: Fluid Narrative [facility] - 11/07/2021 1:03 AM SELF PAY SPECIALIST Fungal and Mycobacteria specimens plated for culture, volume inadequate for optimal recovery. Alfredo Kamara LAB MICROBIOLOGY - GENERAL O RDERABLES Performing Organization Address City/State/ZIP Code Phon e Number [facility] - [address] [place], [place] [address] [facility] [place] [address] [facility] [address] [facility] Fungal Culture, Routine (09/25/2021 1:48 PM CDT) Quartics Method Time Signature Fungal No growth 10/20/2021 DTL Culture, after 24 1:01 AM SELF PAY SPECIALIST Routine days of incubation. Specimen Anatomical Collection Method Collection Time Receive d Time (Source) Location / / Volume Laterality Fluid (Synovial 09/25/2021 1:48 PM 2020 3:42 Fluid, Left CDT PM CDT Shoulder) Comment: Specimen Source Site: Fluid Narrative [facility] - 10/20/2021 1:01 AM SELF PAY SPECIALIST Fungal and Mycobacteria specimens plated for culture, volume inadequate for optimal recovery. Alfredo Kamara LAB MICROBIOLOGY - GENERAL O RDERABLES Performing Organization Address [facility] Phon e Number [facility] - 200 [place] [address] [facility] [place] [address] Crystal Identification, Synovial Fluid (09/25/2021 1:48 PM CDT) [facility] Time Signature Crystal ID, None seen None seen 09/25/2021 [facility] Synovial Fl 4:56 PM CDT Reviewed by: Tech 09/25/2021 [facility] 4:56 PM CDT Specimen Anatomical Collection Method Collection Time Receive d Time (Source) Location / / Volume Laterality Fluid (Synovial 09/25/2021 1:48 PM 2020 3:27 Fluid, Left CDT PM CDT Shoulder) Alfredo Kamara LAB BODY FLUIDS AND STOOLS O RDERABLES Performing Organization Address City/[facility] Phon e Number [facility] - [address] [place] [address] [place] [address] (ABNORMAL) Broad Range Bacteria PCR+Sequencing (09/25/2021 1:48 PM CDT) Component Value Ref Test Analysis Performed At [facility] gist Range Method Time Signature Broad Range This test was developed and its performance characteri stics 10/06/2021 DTL Bacteria determined by [facility] in a manner consistent with 1:24 PM SELF PAY SPECIALIST PCR+Sequencin CLIA requirements. This test has not been cleared or g approved by the U.S. Food and Drug Administration. (A) Broad Range STAPHYLOCOCCUS EPIDERMIDIS 10/06/2021 DTL Bacteria DNA detected 1:24 PM SELF PAY SPECIALIST PCR+Sequencin (A) g Comment: Semi-Urgent Result. Semi-Urgent This is a semi-urgent result [facility] - () [facility] Specimen Anatomical Collection Method Collection Time Receive d Time (Source) Location / / Volume Laterality Fluid (Synovial 09/25/2021 1:48 PM 2020 3:42 Fluid, Left CDT PM CDT Shoulder) Comment: Specimen Source Site: Fluid Narrative [facility] [place] - 10/06/2021 1:24 PM SELF PAY SPECIALIST Fungal and Mycobacteria specimens plated for culture, volume inadequate for optimal recovery. Alfredo Kamara LAB MICROBIOLOGY - GENERAL O MARY Performing Organization Address [facility] Phon e Number [facility] - [address] Bacterial Culture, Anaerobic + Susc (09/25/2021 1:48 PM CDT) Quartics Method Time Signature Bacterial No growth 10/09/2021 DTL Culture, after 14 7:41 AM SELF PAY SPECIALIST Anaerobic + days of Susc incubation. Specimen Anatomical Collection Method Collection Time Receive d Time (Source) Location / / Volume Laterality Fluid (Synovial 09/25/2021 1:48 PM 2020 3:42 Fluid, Left CDT PM CDT Shoulder) Comment: Specimen Source Site: Fluid Narrative [facility] [place] - 10/09/2021 7:41 AM SELF PAY SPECIALIST Fungal and Mycobacteria specimens plated for culture, volume inadequate for optimal recovery. Alfredo Kamara LAB MICROBIOLOGY - GENERAL O MARY Performing Organization Address City/[facility]/ZIP [facility] Phon e Number [facility] - [address] (ABNORMAL) Bacterial Culture, Aerobic + Susc (09/25/2021 1:48 PM CDT) Component Value Ref Test Analysis Performed At [facility] Range Method Time Signature Bacterial STAPHYLOCOCCUS EPIDERMIDIS 09/30/2021 DT L Culture, One [place] 2:35 PM CDT Aerobic + (A) Susc Comment: Semi-Urgent Result. Semi-Urgent This is a semi-urgent result [facility] - () [facility] Specimen Anatomical Collection Method Collection Time Receive d Time (Source) Location / / Volume Laterality Fluid (Synovial 09/25/2021 1:48 PM 2020 3:42 Fluid, Left CDT PM CDT Shoulder) Comment: Specimen Source Site: Fluid Narrative [facility] - [facility] - 09/30/2021 2:35 PM CDT Fungal [...] [facility] - [address] [place], [place] [address] [facility] [place] [address] [facility] [address] Gram Stain (09/25/2021 1:48 PM CDT) [facility] Method Time Signature Gram Stain No organisms [...] [facility] - [address] [place], [place] [address] [facility] [place] [address] [facility] [address] Shoulder Left [...] (ABNORMAL) Sedimentation Rate (09/23/2021 9:07 AM CDT) [facility] gist Method Time Signature Sedimentation 31 (H) 2 - 22 09/23/2021 DTL Rate, B mm/h 10:46 AM CDT Specimen Anatomical Collection Method Collection Time Receive d Time (Source) Location / / Volume Laterality Blood (Blood, 09/23/2021 9:07 AM 09/23/20 21 9:30 Venous) CDT AM CDT Alfredo Kamara LAB BLOOD ADD-ON Performing Organization Address [facility] Phon e Number [facility] - 200 [place], [place] [address] [facility] [place] [address] CRP (C-Reactive Protein) (09/23/2021 9:07 AM CDT) P athologist Signature C-Reactive <3.0 <=8.0 mg/L 09/23/2021 DTL Protein (CRP), 10:30 AM CDT S Specimen Anatomical Collection Method Collection Time Receive d Time (Source) Location / / Volume Laterality Blood (Blood, 09/23/2021 9:07 AM 09/23/20 21 9:57 Venous) CDT AM CDT Alfredo Kamara LAB BLOOD ADD-ON Performing Organization Address [facility] Phon e Number [facility] - 200 [place], [place] [address] [place] [address] (ABNORMAL) CBC with Differential, Blood (09/23/2021 [...] [facility] - [address] [place], [place] [address] [facility] [place] [address] [facility] 200 [...]
--- OUTSIDE RECORDS SUMMARY | 2022-11-06 15:33 | XMS_ITS | Encounter Summary ---
:1965 Author Organization [facility] Address [address] [place] [address] Care Team Providers Name Role Phone Unavailable Primary Care Provider Unavailable Reason for Visit Reason Comments Nicotine Dependence Encounter Details Date Type Department Care Team Description 07/16/2021 Clinical Communication Department of [facility], Carolyn Mccarthy cotine Dependence Nicotine M.S., Dependence, C.T.T.S., [facility], L[facility]C. in [place], [address] [place] [address] [place] [address] [place], [place] [phone] (Work) [phone] Social History Tobacco Use Types Packs/Day Years [...] you attend moravian or Patient refused 2021 christian services? Do [...]
--- OUTSIDE RECORDS SUMMARY | 2022-11-06 15:33 | XMS_ITS | Encounter Summary ---
:1965 Author Organization [facility] Address [address] [place] [address] Care Team Providers Name Role Phone Unavailable Primary Care Provider Unavailable Reason for Visit Reason Comments Nicotine Dependence Encounter Details Date Type Department Care Team Description 07/24/2021 Clinical Communication Department of [facility], Carolyn Mccarthy cotine Dependence Nicotine M.S., Dependence, C.T.T.S., [facility], L.P[facility].C. in [place], [address] [place] [address] [place] [address] [place], [place] [phone] (Work) [phone] Social History Tobacco Use Types Packs/Day Years [...] attend oriental orthodox or Patient refused 2021 anabaptism services? Do [...]
--- OUTSIDE RECORDS SUMMARY | 2022-11-06 15:33 | XMS_ITS | Encounter Summary ---
:1965 Author Organization [facility] Address [address] [place] [address] Care Team Providers Name Role Phone Unavailable Primary Care Provider Unavailable Reason for Visit Reason Comments Nicotine Dependence Encounter Details Date Type Department Care Team Description 07/30/2021 Clinical Communication Department of [facility], Carolyn Mccarthy cotine Dependence Nicotine M.S., Dependence, C.T.T.S., [facility], L.[facility]C. in [place], [address] [place] [address] [place] [address] [place], [place] [phone] (Work) [phone] Social History Tobacco Use Types Packs/Day Years [...]
--- OUTSIDE RECORDS SUMMARY | 2022-11-06 15:33 | XMS_ITS | Encounter Summary ---
:1965 Author Organization [facility] Address [address] [place] [address] Care Team Providers Name Role Phone Unavailable Primary Care Provider Unavailable Reason for Visit Reason Comments Pre-scheduling Questionnaire Hand Pre-Scheduling Qu estionnaire Encounter Details Date Type Department Care Team Description 03/16/2021 Clinical Department of Prescheduling, Pre-scheduli ng Communication Orthopedic Surgery Provider Question elizabeth ( in [place], Hand Pre-Sched [facility] Questionnaire) [address] [place] [phone] Social History Tobacco Use Types Packs/Day Years [...]
--- OUTSIDE RECORDS SUMMARY | 2022-11-06 15:33 | XMS_ITS | Encounter Summary ---
:1965 Author Organization [facility] Address [address] [place] [address] Care Team Providers Name Role Phone Unavailable Primary Care Provider Unavailable Reason for Referral Outpatient (Routine) - Closed Specialty Diagnoses / Procedures Referred By Contact Refer red To Contact Diagnoses Dissociation Scapholunate Left Michael Downs M.D. 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 [facility] Procedures ORS Cast Room Visit [address] [place] [phone] Referral ID Status Reason Start Date Expiration Date Visits Requ ested Visits Authorized [id number] Closed 05/08/2021 05/08/2022 1 1 Encounter Details Date Type Department Care Team Description 05/08/2021 Hospital Encounter Department of Paul Downs M.D. 200 [place] [phone] Dissociation Orthopedic Surgery Dario Noel M.D. [address] [place] [address] [place] [address] Raeann Left in [place], [place] 200 [place] [address] Social History Tobacco Use Types Packs/Day Years [...] you attend worship or Patient refused 2021 yarsani services? Do [...] short-arm cast was applied by the castroom avionics repair technician - The patient is nonweightbearing [...]
--- OUTSIDE RECORDS SUMMARY | 2022-11-06 15:33 | XMS_ITS | Encounter Summary ---
:1965 Author Organization [facility] Address [address] [place] [address] Care Team Providers Name Role Phone Unavailable Primary Care Provider Unavailable Reason for Referral Outpatient (Routine) - Closed Specialty Diagnoses / Procedures Referred By Contact Refer red To Contact Diagnoses Dissociation Scapholunate Left Michael Downs M.D. [facility] Procedures ORS Cast Room Visit [address] [place] [address] Referral ID Status Reason Start Date Expiration Date Visits Requ ested Visits Authorized [id number] Closed 03/24/2021 03/24/2022 1 1 Outpatient (Routine) - Closed Specialty Diagnoses / Procedures Referred By Contact Refer red To Contact Diagnoses Dissociation Scapholunate Left Michael Downs M.D. [facility] Procedures ORS Cast Room Visit [address] [place] [address] Referral ID Status Reason Start Date Expiration Date Visits Requ ested Visits Authorized [id number] Closed 03/24/2021 03/24/2022 1 1 Reason for Visit Reason Comments Pain Appointment Request (Routine) - Closed Specialty Diagnoses / Procedures Referred By Contact Refer red To Contact Orthopedic Surgery Diagnoses Fracture Wrist Hand Closed Initial Referral ID Status Reason Start Date Expiration Date Visits Requ ested Visits Authorized [id number] Closed 03/16/2021 03/16/2022 1 1 Encounter Details Date Type Department Care Team Description 03/24/2021 Admin Visit Department of Dario Noel Dissocia tion Orthopedic Surgery in M.D. Scapholunate Left [place], [place] [address] [facility] (Primary Dx) [address] [place] [address] [phone] Social History Tobacco Use Types Packs/Day Years [...] 70/60 degrees on the contr alateral side. ??Hiv Counselor strength of 10 kg compared to 23 [...] cast was applied by the kevin garcia product support technician - The patient is nonweightbearing bearin [...]
--- OUTSIDE RECORDS SUMMARY | 2022-11-06 15:33 | XMS_ITS | Encounter Summary ---
:1965 Author Organization [facility] Address [address] [place] [address] Care Team Providers Name Role Phone Unavailable Primary Care Provider Unavailable Reason for Visit Outpatient (Routine) - Closed Specialty Diagnoses / Procedures Referred By Contact Refer red To Contact Neurological Surgery Jeannette [address] [place] [address] [place] M.D. [address] [place] [address] Referral ID Status Reason Start Date Expiration Date Visits Requ ested Visits Authorized [id number] Closed 02/17/2021 02/17/2022 1 1 Encounter Details Date Type Department Care Team Description 03/12/2021 Office Visit Department of Gonzalez Benjamin Debra tebral Neurologic Surgery in [place] Jang, Cinthya castorena ([facility]) (Primary [place], [place] Ph.D. Dx) [address] [place] [address] [place] [phone] Social History Tobacco Use Types Packs/Day [...] you attend lutheran or Patient refused 2021 islam services? Do you belong to any clubs or No 05/17/2022 organizations such as lutheran groups, unions, fraOhio [employer] University or athletic groups, or school groups? How [...]
--- OUTSIDE RECORDS SUMMARY | 2022-11-06 15:33 | XMS_ITS | Encounter Summary ---
:1965 Author Organization [facility] Address [address] [place] [address] Care Team Providers Name Role Phone Unavailable Primary Care Provider Unavailable Reason for Visit Reason Comments Med Refill Encounter Details Date Type Department Care Team Description 06/04/2021 Refill Department of Orthopedic Pulos, Dario Alejo M.D. Med Refill Surgery in [address] [phone] [place] [address] [place] [address] [phone] Social History Tobacco Use Types Packs/Day Years [...]
--- OUTSIDE RECORDS SUMMARY | 2022-11-06 15:33 | XMS_ITS | Encounter Summary ---
:1965 Author Organization [facility] Address [address] [place] [address] Care Team Providers Name Role Phone Unavailable Primary Care Provider Unavailable Reason for Visit Reason Comments Pre-visit Intake Encounter Details Date Type Department Care Team Description 04/15/2021 Clinical Communication Department of Robert Diehl e-visit Intake Neurology in [place] Celaya [place], [facility] [place], [place] [address] [place] [phone] [place], [place] [phone] (Work) [phone] Social History Tobacco Use Types Packs/Day Years [...] you attend buddhism or Patient refused 2021 church services? Do [...]
--- OUTSIDE RECORDS SUMMARY | 2022-11-06 15:33 | XMS_ITS | Encounter Summary ---
:1965 Author Organization [facility] Address [address] [place] [address] Care Team Providers Name Role Phone Unavailable Primary Care Provider Unavailable Reason for Referral Outpatient (Routine) - Closed Specialty Diagnoses / Procedures Referred By Contact Refer red To Contact Diagnoses Dissociation Scapholunate Left Michael Downs M.D. [facility] Procedures ORS Cast Room Visit 200 [place] [address] Referral ID Status Reason Start Date Expiration Date Visits Requ ested Visits Authorized [id number] Closed 03/24/2021 03/24/2022 1 1 Reason for Visit Reason Comments Follow-up Outpatient (Routine) - Closed Specialty Diagnoses / Procedures Referred By Contact Refer red To Contact Diagnoses Dissociation Scapholunate Left Michael Downs M.D. [facility] Procedures ORS Cast Room Visit 200 [place], [place] [phone] Referral ID Status Reason Start Date Expiration Date Visits Requ ested Visits Authorized [id number] Closed 03/24/2021 03/24/2022 1 1 Encounter Details Date Type Department Care Team Description 03/24/2021 Hospital Encounter Department of Paul Downs M.D. 200 [place] [phone] Dissociation Orthopedic Surgery Dario Noel M.D. [address] [place] [address] [place] [phone] Raeann Left in [place], [place] 200 [place] [address] Social History Tobacco Use Types Packs/Day Years [...] you attend restorationist or Patient refused 2021 latter-day services? Do [...] with 70/60 degrees on the contralateral side. Shuttle Veneering Supervisor strength of 10 kg compared to [...] short-arm cast was applied by the castroom solid waste technician - The patient is nonweightbearing bearing [...] 03/24/2021 10:00 AM CDT Encounter addended by: Beyrl Santillan on: 05/22/2021 10:21 AM Actions taken: [...] 70/60 degrees on the contr alateral side. ??Shuttle Veneering Supervisor strength of 10 kg compared to [...] ??The clenched fist view was obtained of Amanda Huff [employer] hands, but unfortunately is difficult to assess [...] A short-arm cast was applied by the [facility] solid waste technician - The patient is nonweightbearing bearin [...]
--- OUTSIDE RECORDS SUMMARY | 2022-11-06 15:33 | XMS_ITS | Encounter Summary ---
:1965 Author Organization [facility] Address [address] [place] [address] Care Team Providers Name Role Phone Unavailable Primary Care Provider Unavailable Encounter Details Date Type Department Care Team Description 05/04/2021 Clinical Communication Department of Dario Noel , Orthopedic Surgery in [place], [place] [address] [place] [address] [address] [place] [phone] Social History Tobacco Use Types Packs/Day Years [...] you attend anglican or Patient refused 2021 oriental orthodox services? [...]
--- OUTSIDE RECORDS SUMMARY | 2022-11-06 15:33 | XMS_ITS | Encounter Summary ---
:1965 Author Organization [facility] Address [address] [place] [address] Care Team Providers Name Role Phone Unavailable Primary Care Provider Unavailable Encounter Details Date Type Department Care Team Description 03/11/2021 Clinical Communication Department of Ana Segura Orthopedic Surgery [place], [place] [address] [place] [phone] Social History Tobacco Use Types Packs/Day Years [...] you attend zoroastrianism or Patient refused 2021 quaker services? Do [...] Patient would like to be seen in [place]. Referral line to [place] provided to angela batista. Patient aware she will call for apptointment. Telephone Encounter - Jerica Gee L.P.N. - 03/13/2021 9:09 AM CDT Left message to call clinic back. Needs to see a hand surgeon. Telephone Encounter - Christal Abraham L.P.N. - 03/12/2021 3:21 PM CDT Left message for patient to call back. She can contact hesperus, antler, or sarath frye if she choses. Telephone Encounter - Clemente Schofield M.D. - 03/12/2021 11:23 AM CDT She should see a hand surgeon Telephone Encounter - Esperanza Stratton - 03/11/2021 9:33 AM CDT Reason for Communication: Patient is calling in stating that she is being referred to be seen for a brake in her LEFT hand. Patient is stating that [facility] in [facility] is requesting for patient to be seen by our orthopedic department. Patient is wanting to be seen in [place]. Unable to find any encounters regarding a [...]
--- OUTSIDE RECORDS SUMMARY | 2022-11-06 15:33 | XMS_ITS | Encounter Summary ---
:1965 Author Organization [facility] Address [address] [place] [address] Care Team Providers Name Role Phone Unavailable Primary Care Provider Unavailable Reason for Referral Outpatient (Routine) - Closed Specialty Diagnoses / Procedures Referred By Contact Refer red To Contact Orthopedic Surgery Michael Noble [facility] [place] [address] Referral ID Status Reason Start Date Expiration Date Visits Requ ested Visits Authorized [id number] Closed 05/04/2021 05/04/2022 1 1 Scheduling Instructions Pulos Encounter Details Date Type Department Care Team Description 05/04/2021 Orders Only Department of Orthopedic Mirna Noble Surgery in [facility] [address] 200 [place] [phone] (Wo rk) Social History Tobacco Use Types [...] 05/17/2022 organizations such as gnosticist groups, unions, franodila or athletic groups, or school groups? How [...]
--- OUTSIDE RECORDS SUMMARY | 2022-11-06 15:33 | XMS_ITS | Encounter Summary ---
:1965 Author Organization [facility] Address [address] [place] [address] Care Team Providers Name Role Phone Unavailable Primary Care Provider Unavailable Reason for Referral Outpatient (Routine) - Closed Specialty Diagnoses / Procedures Referred By Contact Refer red To Contact Diagnoses Dissociation Scapholunate Left Michael Downs M.D. [facility] Procedures ORS Cast Room Visit [address] [place] [phone] Referral ID Status Reason Start Date Expiration Date Visits Requ ested Visits Authorized [id number] Closed 05/08/2021 05/08/2022 1 1 Outpatient (Routine) - Closed Specialty Diagnoses / Procedures Referred By Contact Refer red To Contact Diagnoses Dissociation Scapholunate Left Michael Downs M.D. [facility] Procedures ORS Cast Room Visit [address] [place] [phone] Referral ID Status Reason Start Date Expiration Date Visits Requ ested Visits Authorized [id number] Closed 05/08/2021 05/08/2022 1 1 Reason for Visit Reason Onset Date Comments Left Without Being Seen 07/17/2021 Outpatient (Routine) - Closed Specialty Diagnoses / Procedures Referred By Contact Refer red To Contact [facility]opedic [facility] [address] [place] [phone] Referral ID Status Reason Start Date Expiration Date Visits Requ ested Visits Authorized [id number] Closed 05/04/2021 05/04/2022 1 1 Encounter Details Date Type Department Care Team Description 05/08/2021 Office Visit Department of PulDario willis, Dissocia tion Scapholunate Left (Primary Dx); Orthopedic Surgery in M.D. Procedure And Treatment Not Carried Out Due To Patient Leaving Prior To Being Seen By Health Care Provider [place], [place] [address] [place] [address] [place] [phone] Social History Tobacco Use Types Packs/Day Years [...]
--- OUTSIDE RECORDS SUMMARY | 2022-11-06 15:34 | XMS_ITS | Encounter Summary ---
:1965 Author Organization [facility] Address [address] [place] [address] Care Team Providers Name Role Phone Unavailable Primary Care Provider Unavailable Reason for Visit Reason Comments Vertigo and vision problems [facility] Encounter Details Date Type Department Care Team Description 02/18/2021 Clinical Communication Department of Fazal, Robert mendosa and vision Neurology jimmy Celaya M.D. problems ([facility]) [place], [facility] [address] [place], [place] [address] [place] [phone] [place], [place] [phone] (Work) [phone] Social History Tobacco Use Types Packs/Day Years [...]
--- OUTSIDE RECORDS SUMMARY | 2022-11-06 15:34 | XMS_ITS | Encounter Summary ---
:1965 Author Organization [facility] Address [address] [place] [address] Care Team Providers Name Role Phone Unavailable Primary Care Provider Unavailable Reason for Visit Reason Comments Communication Encounter Details Date Type Department Care Team Description 02/19/2021 Clinical Communication Department of Rossy Benjamin Neurologic Surgery in [place] Jang, [place], [place] Ph.D. [address] [place] [address] 200 [place] [phone] Social History Tobacco Use Types Packs/Day Years [...] you attend rastafari or Patient refused 2021 buddhist services? Do [...]
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
--- OUTSIDE RECORDS SUMMARY | 2022-11-06 15:34 | XMS_ITS | Encounter Summary ---
:1965 Author Organization [facility] Address [address] [place] [address] Care Team Providers Name Role Phone Unavailable Primary Care Provider Unavailable Reason for Referral Outpatient (Routine) - Closed Specialty Diagnoses / Procedures Referred By Contact Refer red To Contact Neurological Surgery [facility] [address] [place] [address] Referral ID Status Reason Start Date Expiration Date Visits Requ ested Visits Authorized [id number] Closed 02/17/2021 02/17/2022 1 1 Scheduling Instructions Please schedule with Chief A Neurosurger y Service (Dr. Suhail Benjamin). 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 [facility] Procedures CT Head Neck Angiogram with IV Contrast [address] [place] [address] Referral ID Status Reason Start Date Expiration Date Visits Requ ested Visits Authorized [id number] Closed 02/17/2021 02/17/2022 1 1 Encounter Details Date Type Department Care Team Description 02/17/2021 Orders Only Department of Jeannette Cote Cerebral Infarction Neurologic Surgery in [place]ian Souza Due To Embolism Right [place], [place] [address] [facility] Vertebral Artery (HCC) [address] [place], [place] (Primary Dx) [place] [phone] Social History Tobacco Use Types Packs/Day Years [...] you attend episcopal or Patient refused 2021 sabianism services? Do [...] Neuroradiology ARZ LOS, Neuroradiology T omography [facility] Specimen (Source) Anatomical Collection Method Collection [...] urysms. 3. 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 Otherwise [place] is intact. [...] urysms. 3. 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 Jeannette NIELSON [...]
--- OUTSIDE RECORDS SUMMARY | 2022-11-06 15:34 | XMS_ITS | Encounter Summary ---
:1965 Author Organization [facility] Address [address] [place] [address] Care Team Providers Name Role Phone Unavailable Primary Care Provider Unavailable Reason for Visit Reason Comments Post Hospital Follow-up Encounter Details Date Type Department Care Team Description 02/19/2021 Clinical Communication Department of [facility] Post Hospital Neurology in Monica Alvarado R.N. Follow-up [place], [place] [address] [place] [phone] Social History Tobacco Use Types Packs/Day [...] you attend buddhist or Patient refused 2021 bahai services? Do [...] reports she has not yet picked up uin697 ASA daily and 80 mg Atorvastatin at [...]
--- OUTSIDE RECORDS SUMMARY | 2022-11-06 15:34 | XMS_ITS | Encounter Summary ---
:1965 Author Organization [facility] Address [address] [place] [address] Care Team Providers Name Role Phone Unavailable Primary Care Provider Unavailable Reason for Visit Reason Comments Nicotine Dependence Encounter Details Date Type Department Care Team Description 03/10/2021 Clinical Communication Department of [facility], Carolyn Mccarthy cotine Dependence Nicotine M.S., Dependence, C.T.T.S., [facility] in [address] [place] [phone] [place], [place] [phone] (Work) [phone] Social History Tobacco Use Types Packs/Day Years [...]
--- OUTSIDE RECORDS SUMMARY | 2022-11-06 15:34 | XMS_ITS | Encounter Summary ---
:1965 Author Organization [facility] Address [address] [place] [address] Care Team Providers Name Role Phone Unavailable Primary Care Provider Unavailable Reason for Visit Reason Comments Follow-up [facility] Patient Encounter Details Date Type Department Care Team Description 02/25/2021 Clinical [facility] Neurology jimmy Celaya M.D. Patient) [place], [facility] [place], [place] [address] [place] [phone] [place], [place] [phone] (Work) [phone] Social History Tobacco Use Types Packs/Day Years [...] you attend yarsani or Patient refused 2021 evangelical services? Do [...] so I advised she report to [facility] as soon as possible to be [...]
--- OUTSIDE RECORDS SUMMARY | 2022-11-06 15:34 | XMS_ITS | Encounter Summary ---
:1965 Author Organization [facility] Address [address] [place] [address] Care Team Providers Name Role Phone Unavailable Primary Care Provider Unavailable Encounter Details Date Type Department Care Team Description 02/11/2021 Ancillary Procedure Department of Radiology Ridge Vega in [facility] raúl Quintana 200 [facility] 200 [place] [phone] (Wo rk) Social History Tobacco Use Types [...] you attend denominational or Patient refused 2021 lutheran services? Do [...] bilateral thalami (series 3 image 36), bilateral WAGON PERSON 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 bilateral thalami (series 3 image 36), bilateral WAGON PERSON 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 bilateral thalami (series 3 image 36), bilateral WAGON PERSON regio n (left greater than right, image [...] bilateral thalami (series 3 image 36), bilateral WAGON PERSON regio n (left greater than right, image [...] bilateral thalami (series 3 image 36), bilateral WAGON PERSON regio n (left greater than right, image [...] bilateral thalami (series 3 image 36), bilateral WAGON PERSON regio n (left greater than right, image [...]
--- OUTSIDE RECORDS SUMMARY | 2022-11-06 15:34 | XMS_ITS | Encounter Summary ---
:1965 Author Organization [facility] Address [address] [place] [address] Care Team Providers Name Role Phone Unavailable Primary Care Provider Unavailable Encounter Details Date Type Department Care Team Description 02/16/2021 Anesthesia Event Department of Radiology Liban Sunshine APRN, BILLIARD TABLE ASSEMBLER, DNAP [address] [place] [phone] in [facility] Deep Velasquez M.D. [address] [place] [phone] [place] [phone] Anesthesia Record Procedure Summary Procedure Name Responsible Anesthesia Start Anesthesia Stop Anesthesiologist Time Time IR CEREBRAL Liban Sunshine APRN, 02/16/21 0825 02/16/21 1100 INTRACRANIAL ARTERY BILLIARD TABLE ASSEMBLER, DNAP EMBOLIZATION Events Date Time Event Comment [...] h andoff to the receiving staff during [facility] we 1. Identified the [...] 1,000 units/mL injection 6,000 Units heparin standard 78039 Units/250 mL in 0.45 % Sodium C [...] attend jehovah's witness or Patient refused 2021 yazidism services? Do you belong to any clubs or No 05/17/2022 organizations such as jehovah's witness groups, [employer], [employer] or athletic groups, or school groups? [...] OR Notes Anesthesia Postprocedure Evaluation - Liban Sunsihne APRN, CRNA, DNAP - 02/16/2021 11:01 AM CDT Patient: Angie Mosquera Procedure Summary Date: 02/16/21 Room / Location: Department of Radiology in [place], [place] Anesthesia Start: 08 Anesthesia Stop: 1100 [...] Dr. Castillo. Location: Department of Radiology in [place], [place] Pertinent components of the patient's history [...] patient /legal guardian or through an translator and interpreter. Risks/Benefits/Alternatives of Blood transfusion discussed with [...]
--- OUTSIDE RECORDS SUMMARY | 2022-11-06 15:35 | XMS_ITS | Encounter Summary ---
:1965 Author Organization [facility] Address [address] [place] [address] Care Team Providers Name Role Phone Unavailable Primary Care Provider Unavailable Reason for Visit Reason Comments Pre-visit Intake Encounter Details Date Type Department Care Team Description 01/29/2021 Clinical Communication Department of Robert Diehl e-visit Intake Neurology in [place] Celaya [place], [facility] [place], [place] [address] [phone] [place], [place] [phone] (Work) [phone] Social History Tobacco Use Types Packs/Day Years [...] you attend taoism or Patient refused 2021 presybeterian services? Do [...]
--- OUTSIDE RECORDS SUMMARY | 2022-11-06 15:35 | XMS_ITS | Encounter Summary ---
:1965 Author Organization [facility] Address [address] [place] [address] Care Team Providers Name Role Phone Unavailable Primary Care Provider Unavailable Encounter Details Date Type Department Care Team Description 02/11/2021 Ancillary Procedure Department of Radiology Ridge Vega in [facility] raúl Quintana 200 [address] [place] [phone] (Wo rk) Social History Tobacco Use Types [...] you attend baptist or Patient refused 2021 mu-ism services? Do [...] bilateral thalami (series 3 image 36), bilateral DIRECTOR OF GROUP COUNSELING PROGRAM regio n (left greater than right, image [...] bilateral thalami (series 3 image 36), bilateral DIRECTOR OF GROUP COUNSELING PROGRAM regio n (left greater than right, image [...] bilateral thalami (series 3 image 36), bilateral DIRECTOR OF GROUP COUNSELING PROGRAM regio n (left greater than right, image [...] bilateral thalami (series 3 image 36), bilateral DIRECTOR OF GROUP COUNSELING PROGRAM regio n (left greater than right, image [...] bilateral thalami (series 3 image 36), bilateral DIRECTOR OF GROUP COUNSELING PROGRAM regio n (left greater than right, image [...] bilateral thalami (series 3 image 36), bilateral DIRECTOR OF GROUP COUNSELING PROGRAM regio n (left greater than right, image [...]
--- OUTSIDE RECORDS SUMMARY | 2022-11-06 15:35 | XMS_ITS | Encounter Summary ---
:1965 Author Organization [facility] Address [address] [place] [address] Care Team Providers Name Role Phone Unavailable Primary Care Provider Unavailable Reason for Visit Reason Onset Date Comments saul med request 02/03/2021 Encounter Details Date Type Department Care Team Description 02/03/[address] of [facility], trinidad Mccarthy med request Nicotine Dependence, M.S., C.T.T.S., [facility] in [place], [address] [place] [address] [place] [address] [place], [place] [phone] (Work) [phone] Social History Tobacco Use Types Packs/Day Years [...] you attend taoism or Patient refused 2021 anglican services? Do [...] 02/03/2021 10:16 AM CST Please send to [facility] in [facility] 21 mg patches with refills Nicotrol inhaler with refills Nicotine nasal spray with refills ASOUND APPLICATIONS SPECIALIST documented in this encounter Plan of Treatment Not on filedocumented as of this encounter Visit Diagnoses Not on filedocumented in this encounter Additional Health Concerns Assessment Noted Time PHQ-9 Depression Total Score: 23 02/02/2021 11:[address] documented as of this encounter
--- OUTSIDE RECORDS SUMMARY | 2022-11-06 15:35 | XMS_ITS | Encounter Summary ---
:1965 Author Organization [facility] Address [address] [place] [address] Care Team Providers Name Role Phone Unavailable Primary Care Provider Unavailable Reason for Referral Outpatient (Routine) - Closed Specialty Diagnoses / Procedures Referred By Contact Refer red To Contact Home Health Care Diagnoses Stroke (HCC) Chronic Pain Syndrome Stroke Cerebrovascular Accident Personal History Ric Quinn M.D., M.S. [address] [place] [id number] Referral ID Status Reason Start Date Expiration Date Visits Requ ested Visits Authorized [id number] Closed 02/03/2021 02/03/2022 1 1 ZE PLATER Encounter Details Date Type Department Care Team Description 01/31/2021 - Hospital Encounter [facility] Bl[place], Stroke (H CC) (Primary Dx); [facility], [address] [place] [address] Stroke Cerebrovascular Accident Personal History [facility], [facility] [phone] floor [phone] [place] [address] (Work) [place], [place] [phone] (Fax) [phone] Social History Tobacco Use Types Packs/Day Years [...] attend jehovah's witness or Patient refused 2021 gnosticist services? Do [...] Comments Blood Pressure 133/71 02/03/2021 5:15 PM BRONZE PLATER Pulse 92 02/03/2021 5:15 PM BRONZE PLATER Temperature 36.5 ??C (97.7 ??F) 02/03/2021 5:15 PM BRONZE PLATER Respiratory Rate 17 02/03/2021 5:15 PM BRONZE PLATER Oxygen Saturation 97% 02/03/2021 5:15 PM BRONZE PLATER Inhaled Oxygen Concentration - - Weight 78.8 kg (173 lb 11.6 oz) 01/31/2021 9:39 PM BRONZE PLATER Height 152.4 cm (5') 01/31/2021 9:39 PM BRONZE PLATER Body Mass Index 33.93 01/31/2021 9:39 PM BRONZE PLATER documented in this encounter Discharge Summaries Malcom Torres M.D. - 02/03/2021 2:24 PM CST DISCHARGE SUMMARY BRIEF OVERVIEW Hospital: [facility] Discharge Provider: Nan Rios M.D. Primary Team: [facility] Neurology Stroke and Cerebrovascular Disease No [...] artery dissection. Shewas subsequently admitted directly to [facility] Neurology Stroke service for further workup [...] ??C, temperature source Oral, resp. rate 17, ycorht065.4 cm, weight 78.8 kg, SpO2 94 %. [...] were provided to the patient and caregiver(s). ZE PLATER documented in this encounter Discharge Instructions Discharge InstructionsLaquita Raines - 02/02/2021 7:23 AM CST You were discharge from the Neurology Stroke Service. Please Identify this service name if you call with questions after your hospitalization. ZE PLATER Discharge Instr - ActivityLeonides Liang PBrittonT. - 02/02/2021 1:13 PM BRONZE PLATER Physical Therapy Discharge Summary MOBILITY RESTRICTIONS/PRECAUTIONS: Fall [...] 02/02/2021 by Leonides Liang P.T. Contact information: [facility], [address], ZE PLATER AttachmentsThe following attachments cannot be sent through Care Everywhere. Apixaban (By mouth) (Chadian)Nicotine (Absorbed through the skin) (Chadian) Nicotine (By breathing) (Chadian)Nicotine (Into the nose) (Chadian)documented in this encounter Medications at Time of Discharge Medication Sig Dispensed Refills Start Date End Date albuterol (PROVENTIL Inhale 2 puffs every 0 HFA,VENTOLIN HFA) 90 6 (six) hours as mcg/actuation inhaler needed for wheezing or shortness of breath. benzonatate (TESSALON Take 100 mg by mouth 6 02/27 PERLSHAHZAD) 100 mg capsule 3 (three) times a [...] Per patient report, she was able to pole framer machine the shower last evening and using [...] Treatment Time (min): 16 min MILA Cardoza ZE PLATER Helen Greer P.T. - 02/03/2021 1:57 PM CST No PT intervention today as patient was at an MRI this morning, now stating that she has just gone for a walk and plans are for dc to home with intermittent assist from her son. Helen Greer, PT ZE PLATER Catalina Panchal, R.N. - 02/03/2021 1:49 PM CST Patient discussed at Stroke Multidisciplinary Rounds. Plan for the day: Case Management Following, PT/OT, Medication Management, MRI/MRA Plan for the Stay: Stroke w/u Discharge barriers: Inpatient Needs [place] [facility] [place] ZE PLATER Nan Rios M.D. - 02/03/2021 10:36 AM [...] pain syndrome, fibromyalgia, and nicotine use disorder. ZE PLATER Leonides Kumar M.D. - 02/03/2021 7:09 AM [...] status: Prior Disposition: Home Plan discussed with [facility] Neurology Stroke and Cerebrovascular Disease Dulser, Dr. Rios. Please page the [facility] Neurology Stroke and Cerebrovascular Disease service pager at [phone] with any questions. Leonides Kumar M.D. ZE PLATER Makenzie Figueredo O.T.Katarina - 02/02/2021 3:24 PM [...] home to ensure her safety. From the Wire Drawing Die Maker's perspective, the patient is not an inpatient [...] Treatment Time (min): 32 min MILA Cardoza ZE PLATER Catalina Panchal RBetsy - 02/02/2021 2:31 PM CST Patient discussed at Stroke Multidisciplinary Rounds. Plan for the day: MRI, Case Management Consult, PT/OT, Medication Management Plan for the Stay: Stroke w/u Discharge barriers: Inpatient Needs Recommended discharge [place] [facility] [place] ZE PLATER Leonides Liang P.T. - 02/02/2021 12:58 PM [...] Time (min): 32 min Leonides Liang P.T. ZE PLATER Nan Rios M.D. - 02/02/2021 10:27 AM [...] pain syndrome, fibromyalgia, and nicotine use disorder. ZE PLATER Jessie Rock Pharm.D., R.Ph. - 02/02/2021 10:21 AM CST Images from the original note were not included. Admission Medication History Note Adherence issues: Unable to assess Medication list source: Pharmacy or dispense records. Medication list provided by [facility] in [place]. Most recent dispensing information obtained. Multiple changes [...] by mouth 2 (two) times a day. ZE PLATER Leonides Kumar M.D. - 02/02/2021 6:55 AM [...] status: Prior Disposition: Home Plan discussed with [facility] Neurology Stroke and Cerebrovascular Disease Dulser, Dr. Rios. Please page the [facility] Neurology Stroke and Cerebrovascular Disease service pager at [phone] with any questions. Leonides Kumar M.D. ZE PLATER Leonides Kumar M.D. - 02/01/2021 6:36 AM [...] status: Prior Disposition: Home Plan discussed with [facility] Neurology Stroke and Cerebrovascular Disease Dulser, Dr. Rios. Please page the [facility] Neurology Stroke and Cerebrovascular Disease service pager at [phone] with any questions. Leonides Kumar M.D. ZE PLATER documented in this encounter H&P Notes Nan [...] segment. ?? The patient presented to the [facility] ED with acute onset vertigo which occurred yesterday afternoon while she was at [facility]. She bent forward and complained of neck pain which radiated to the top of her head. She also complained of warmth all over her body and generalised weakness. ?? With effort, she was able to ambulate back to her car with her groceries, where she met her son, whothen took her to the [facility] ED. There, the patient had a head CT the chronic left cerebellar infarct. There was also concern for a new infarct in the right thalamus. INR was 1.35. She was transferred to [facility] for further evaluation. ?? Today, she [...] pain syndrome, fibromyalgia, and nicotine use disorder. ZE PLATER Marbella Cutler M.D. - 02/01/2021 2:55 AM [...] V4 segment. The patient presented to the [facility] ED with acute onset vertigo which occurred yesterday afternoon while she was at [facility]. She bent forward and complained of neck pain which radiated to the top of her head. She also complained of warmth all over her body and generalised weakness. With effort, she was able to ambulate back to her car with her groceries, where she met her son, whothen took her to the [facility] ED. There, the patient had a head CT the chronic left cerebellar infarct. INR was 1.35. She was transferred to [facility] for further evaluation. On the floor, she was hemodynamically stable but complained of ongoing vertigo, with difficulty keeping her eyes open. Social history: she is currently unemployed but previously worked at a [employer] and [employer]. She is fully independent of her ADLs [...] admitting resident. Please page the Stroke service [phone] with questions/concerns. ZE PLATER Gerald England M.D. - 01/31/2021 9:16 PM [...] artery dissection. Shewas subsequently admitted directly to [facility] Neurology Stroke service for further workup [...] COMPUTER NAVIGATION.; Surgeon: Darlin Olmedo M.D.; Location: [facility] ROMB OR ??? HYSTERECTOMY ??? JOINT [...] More than three times a week Attends gnosticist service: Patient refused Active member of club [...] and normal caliber bilateral MCAs, ACAs and tester compressed gases. Patent anterior and right posterior communicating arteries. [...] page the Cerebrovascular Neurology Service pager at [phone] with any questions or concerns. [facility] Stroke Neurology Service Business Development Engineer: Nan England M.D. STROKE DOCUMENTATION: Stroke Center [...] to hemorrhage and/or hemorrhagic risk Prestroke modified [place] Score (mRS): 1 - No significant disability. [...] 30 or greater) and hormonal contraceptive use ZE PLATER documented in this encounter Consult Notes Pamela Middleton M.S., TrayC., C.T.T.S. - 02/03/2021 10:08 AM CSTAssociated Order(s): IP CONSULT TO INTERNAL MEDICINE NICOTINE DEPENDENCE; IP CONSULT TO INTERNAL MEDICINE NICOTINE DEPENDENCE SUBJECTIVE Consults REASON FOR CONSULT Admitting Service: Neurology Reason for Consult: Tobacco Use Disorder HISTORY OF PRESENT ILLNESS Angie Bender is a 55 y.o. female who was seen at [facility] and is being evaluated for tobacco use [...] provided the patient with educational materials and [facility] contact information. Patient is unable [...] Middleton M.S., Delvin, C.T.T.S. 02/03/2021 10:08 AM BRONZE PLATER ZE PLATER Catalina Panchal, RBrittonNBritton - 02/02/2021 2:11 PM CSTAssociated Order(s): IP CONSULT TO CARE MANAGEMENT Discharge Planning Assessment SUBJECTIVE Referral Data Referral Source: Early Screen for Discharge Planning Referral Reason: Discharge Planning Discharge Planning: Home health Who was present during the interview?: Patient Bean Picker Services Used: No Patient Information Primary Caregiver: Self Legal Information Legal Decision Maker: Self Legal Status: Voluntary Caregiver Information Self Services Requested Home Health: care home Level of Care: Intermediate OBJECTIVE Functional Status (ADLs) Functional Status: Minimum assistance Assistive Devices: Walker, Shower chair, Eyeglasses, Hearing aids Dressing: Independent Feeding: Independent Bathing: Independent Grooming: Independent Toileting: Independent Transfer to/from Bed, Chair Etc.: Independent Mobility: Independent Meal Prep: Independent Medication Setup/Administration: Needs assistance Telephone Use: Independent Housekeeping: Independent Shopping: Independent Managing Finances: Independent Behavior: Oriented Communication: Talks, Understands speaking, Understands Chadian Environmental Supports Home Environment: House Anticipated Needs/Assistive [...] Nurse visit Home Care Agency Name : [facility] Anticipated Discharge Destination: Home-Health Care [facility] Recommended Discharge Services: Nursing Does the patient need discharge transport arranged?: No ASSESSMENT / PLAN Plan Assessment: The bi specialist met with Angie Bender to discuss her current hospitalization and home goingneeds. The patient was unaccompanied. The patient was a reliable historian, but was lacking completedetails at times. The role of bi specialist was reviewed. The patient reviewed her prior level of care and support system. The patient receives support from her son. The patient described her living environment as a single level home with level entry. Housekeeping, grocery shopping, meal prep, and other household responsibilities have previously been completed by patient. bi specialist discussed the patient's potential needs at dismissal based on their home setti ng, previous needs and responsibilities, homebound status, and relevant assessments with the patient. The patient will be safe and supported to return home with [facility] or previous services noted above when medically [...] dismissal will be provided by family--son. 3. bi specialist recommended nothing at this time. 4. bi specialist provided information regarding the dismissal process. 5. bi specialist placed or requested the following hospital-based consult orders and/or referrals:None. 6. bi specialist will continue to assess for homegoing needs with the interdisciplinary team. 7. bi specialist encouraged the patient to reach out with any questions/concerns. Care Management will continue to follow. Patient to discharge with home health care. [facility] - Admitted Since 01/31/2021 The patient receives nursing home visits 1-2x week. She has qualified for [facility], homemaking, and home health aide visits, but [...] Alone Receives Help From: Family, Friend(s), car wash attendant ADL Assistance: Independent IADL/Homemaking Assistance: Required assistance IADL/Homemaking Assistance Comments: Has assistance with meals on wheels, cleaning, and medication management Occupational Role: On disability Prior Mobility/Functional Transfers Level of [place]: Independent Previous Transfer/Mobility Assistance Comments: Patient reports [...] Time (min): 25 min Radha Samuel P.T. ZE PLATER Rosario Lopez O.Jolanta. - 02/01/2021 3:17 PM [...] Alone Receives Help From: Family, Friend(s), car wash attendant ADL Assistance: Independent IADL/Homemaking Assistance: Required assistance IADL/Homemaking Assistance Comments: Has assistance with meals on wheels, cleaning, and medication management Driving: Independent Occupational Role: On disability Occupational Role Comments: Previously worked at a [employer] and [employer] Prior Mobility/Functional Transfers Level of [place]: Independent Home Living Type of Home: Apartment [...] Time (min): 60 min Rosario Lopez O.T. ZE PLATER Maria M Duque M.D. - 02/01/2021 7:21 AM CSTAssociated Order(s): IP CONSULT TO PHYSICAL MEDICINE & REHABILITATION Consult received for Physical Medicine and Rehabilitation Consult Service. I reviewed the electronic health record. I have triaged to therapy only; no tray packer consult appears to be necessary at this time. If therapists or referring service feel that a tray packer review is necessary, please send a new consult request with only the Physician consult - Physical Medicine and Rehabilitation consult (hospital) item selected. ZE PLATER documented in this encounter Nursing Notes Sofie [...] by: Sofie Sutton R.N. 02/03/21 5:24 PM BRONZE PLATER ZE PLATER Sofie Sutton R.N. - 02/03/2021 5:20 PM [...] by: Sofie Sutton R.N. 02/03/21 5:22 PM BRONZE PLATER ZE PLATER Marlene Grover R.N. - 02/03/2021 5:14 AM [...] Goal: Patient discharge needs identified Outcome: Progressing ZE PLATER Mague Rudolph R.N. - 02/02/2021 5:03 AM CST Shift Goals: Clinical Goals for the Shift: patient will use call light appropriately Identify possible barriers to meeting goals/advancing plan of care: End of Shift Summary: patient met goal ZE PLATER Valarie Grayson R.N. - 02/01/2021 5:59 PM CST Shift Goals: Clinical Goals for the Shift: Patient will tolerate MRI Identify possible barriers to meeting goals/advancing plan of care: Patient's pediatric medical assistant End of Shift Summary: Goal not met. MRI scheduled for Tuesday related to device monitoring. Electronically signed by: Valarie Grayson R.N. 02/01/21 5:59 PM BRONZE PLATER Problem: SKIN/TISSUE INTEGRITY Goal: Skin/Tissue integrity maintained or improved Outcome: Progressing Problem: SAFETY ADULT Goal: Maintain a safe environment Outcome: Progressing Problem: SAFETY ADULT - RISK FOR FALL AND OR FALL INJURY Goal: Patient remains free from fall/fall injury Outcome: Progressing ZE PLATER documented in this encounter Miscellaneous Notes Hospital [...] artery dissection. Shewas subsequently admitted directly to [facility] Neurology Stroke service for further workup [...] after a CTA head/neck in 3 months. ZE PLATER documented in this encounter Plan of Treatment Scheduled Referrals Name Type Priority Associated Diagnoses Order S chedule Non-[facility] Outpatient Referral Routine Stroke (HCC) Ordered: Health Referral Chronic Pain Syn drome 02/03/2021 Stroke Cerebrovascular Accident Personal History documented as of this encounter Procedures Procedure Name Priority Date/Time Associated Comments Diagnosis MR NECK ANGIOGRAM RAD - Routine 02/03/2021 Results f or WITHOUT AND WITH IV (most inpatients 12:39 PM BRONZE PLATER this procedure CONTRAST and all are in the outpatients) results section. MR BRAIN WITHOUT AND RAD - Routine 02/03/2021 Result s for WITH IV CONTRAST (most inpatients 12:34 PM BRONZE PLATER this pr ocedure and all are in the outpatients) results section. DX ABDOMEN SUPINE WITH RAD - Routine 02/02/2021 3:26 R esults for UPRIGHT OR DECUBITUS 2 (most inpatients PM BRONZE PLATER t his procedure VIEWS and all are in the outpatients) results section. PROTHROMBIN TIME (PT), Routine 02/02/2021 5:20 Re sults for P AM BRONZE PLATER this procedure are in the results section. LIPID PANEL, S Routine 02/01/2021 5:21 Results fo r AM BRONZE PLATER this procedure are in the results section. RENAL FUNCTION PANEL, S Routine 02/01/2021 5:21 R esults for AM BRONZE PLATER this procedure are in the results section. FOLATE, S Routine 02/01/2021 5:21 Results for AM BRONZE PLATER this procedure are in the results section. VITAMIN B12 ASSAY, S Routine 02/01/2021 5:21 Resu lts for AM BRONZE PLATER this procedure are in the results section. ECG Routine 01/31/2021 Results for 11:35 PM BRONZE PLATER this procedure are in the results section. SARS CORONAVIRUS 2, Routine 01/31/2021 Results for RNA, RAPID POC, V 10:32 PM BRONZE PLATER this proce dure are in the results section. ELECTROLYTE (CHEM 4) Routine 01/31/2021 9:44 Resu lts for PANEL, S/P PM BRONZE PLATER this procedure are in the results section. ACTIVATED PARTIAL Routine 01/31/2021 9:44 Results for THROMBOPLASTIN TIME PM BRONZE PLATER this pro cedure (APTT), P are in the results section. PROTHROMBIN TIME (PT), Routine 01/31/2021 9:44 Re sults for P PM BRONZE PLATER this procedure are in the results section. CBC WITH DIFFERENTIAL, Routine 01/31/2021 9:44 Re sults for B PM BRONZE PLATER this procedure are in the results section. ALANINE Routine 01/31/2021 9:44 Results for AMINOTRANSFERASE (ALT), PM BRONZE PLATER this procedure S/P are in the results section. ASPARTATE Routine 01/31/2021 9:44 Results for AMINOTRANSFERASE (AST), PM BRONZE PLATER this procedure S/P are in the results section. THYROID-STIMULATING Routine 01/31/2021 9:44 Resul ts for HORMONE-SENSITIVE PM BRONZE PLATER this proce dure (S-TSH) are in the results section. HEMOGLOBIN A1C, B Routine 01/31/2021 9:44 Results for PM BRONZE PLATER this procedure are in the results section. documented in this encounter Results MR Neck Angiogram without and with IV Contrast (02/03/2021 12:39 PM BRONZE PLATER) Anatomical Region Laterality Modality Neck, Neuroradiology RST LOS, Neuroradiology [facility], N/A Magnetic Resonance Neuroradiology [facility] Specimen (Source) Anatomical Collection Method Collection Time Re ceived Time Location / / Volume Laterality 02/03/2021 11:37 AM BRONZE PLATER Impressions 02/03/2021 1:26 PM BRONZE PLATER 1. Infarctions in the posterior circulation of [...] technica l limitations. Narrative 02/03/2021 1:26 PM BRONZE PLATER EXAM: MR BRAIN WITHOUT AND WITH IV [...] and with IV Contrast (02/03/2021 12:34 PM BRONZE PLATER) Anatomical Region Laterality Modality Head, Brain, Neuroradiology RST LOS, Neuroradiology ADILIA N/A Magnetic Resonance LOS, Neuroradiology [facility] Specimen (Source) Anatomical Collection Method Collection Time Re ceived Time Location / / Volume Laterality 02/03/2021 11:37 AM BRONZE PLATER Impressions 02/03/2021 1:26 PM BRONZE PLATER 1. Infarctions in the posterior circulation of [...] technica l limitations. Narrative 02/03/2021 1:26 PM BRONZE PLATER EXAM: MR BRAIN WITHOUT AND WITH IV [...] or Decubitus 2 Views (02/02/2021 3:26 PM BRONZE PLATER) Anatomical Region Laterality Modality Abdomen, Abdominal RST LOS, Abdominal ARZ LOS, Right Digital Radiography Abdominal FLA LOS Specimen (Source) Anatomical Collection Method Collection Time Re ceived Time Location / / Volume Laterality 02/02/2021 3:49 PM BRONZE PLATER Impressions 02/02/2021 3:50 PM BRONZE PLATER Spinal stimulator device with tip over the T7-8 interspace. Generator pack posterior to the left janett ac crest. Postoperative changes ventral hernia repair. Surgical marylin near the GE junction. Cholecystectomy. Lung bases are clear. Narrative 02/02/2021 3:50 PM BRONZE PLATER EXAM: ??DX ABDOMEN SUPINE WITH UPRIGHT OR [...] (ABNORMAL) Prothrombin Time (PT) (02/02/2021 5:20 AM BRONZE PLATER) [facility] Method Time Signature Prothrombin 16.2 (H) 9.4 - 12.5 02/02/2021 DTL Time, P sec 6:12 AM BRONZE PLATER INR 1.5 0.9 - 1.1 02/02/2021 DTL 6:12 AM BRONZE PLATER Comment: ----ADDITIONAL INFORMATION---- Standard intensity warfarin therapeutic range: 2.0 to 3.0 ?? High intensity warfarin therapeutic rang e: 2.5 to 3.5 Specimen Anatomical Collection Method Collection Time Receive d Time (Source) Location / / Volume Laterality Blood (Blood, 02/02/2021 5:20 AM 02/03/20 5:48 Venous) BRONZE PLATER AM BRONZE PLATER Leonides Kumar M.D. LAB BLOOD ADD-ON Performing Organization Address City/State/ZIP Code Phon e Number [facility] - [address] [place], [place] [address] [facility] [place] [address] Laboratories-[facility] [address] [facility] Renal Function Panel (02/01/2021 5:21 AM BRONZE PLATER) P athologist Signature Potassium, S 4.3 3.6 - 5.2 02/01/2021 DTL mmol/L 6:26 AM BRONZE PLATER Sodium, S 139 135 - 145 02/01/2021 DTL mmol/L 6:26 AM BRONZE PLATER Chloride, S 106 98 - 107 02/01/2021 DTL mmol/L 6:26 AM BRONZE PLATER Bicarbonate, S 25 22 - 29 02/01/2021 DTL mmol/L 6:26 AM BRONZE PLATER Anion Gap 8 7 - 15 02/01/2021 DTL 6:26 AM BRONZE PLATER BUN (Blood Urea 14 6 - 21 02/01/2021 DTL Nitrogen), S mg/dL 6:26 AM BRONZE PLATER Creatinine 0.74 0.59 - 02/01/2021 DTL 1.04 mg/dL 6:26 AM BRONZE PLATER eGFR-Non >90 >=60 02/01/2021 DTL Black/ mL/min/BSA 6:26 AM BRONZE PLATER Lithuanian Comment: ----ADDITIONAL INFORMATION---- Estimated GFR calculated using the 2009 CKD_EPI creatinine equation. eGFR-Black/ >90 >=60 mL/min/BSA 2020 6:26 AM BRONZE PLATER DTL Comment: ----ADDITIONAL INFORMATION---- Estimated GFR calculated using the 2009 CKD_EPI creatinine equation. Calcium, Total, S 9.2 8.6 - 10.0 mg/dL 02/01/2021 6:26 AM BRONZE PLATER DTL Glucose, S 96 70 - 140 mg/dL 02/01/2021 6:26 AM BRONZE PLATER D TL Albumin, S 3.6 3.5 - 5.0 g/dL 02/01/2021 6:26 AM BRONZE PLATER D TL Phosphorus (Inorganic), S 4.0 2.5 - 4.5 mg/dL 02/02/20 6:26 AM BRONZE PLATER DTL Specimen Anatomical Collection Method Collection Time Receive d Time (Source) Location / / Volume Laterality Blood (Blood, 02/01/2021 5:21 AM 02/02/20 5:52 Venous) BRONZE PLATER AM BRONZE PLATER Gerald England M.D. LAB BLOOD ADD-ON Performing Organization Address City/[facility] Phon e Number [facility] - [address] [place] [address] [facility] [address] [facility] (ABNORMAL) Vitamin B12 Assay (02/01/2021 5:21 AM BRONZE PLATER) Analysis Performed At Patho logist Time Signature Vitamin B12 >1400 (H) 180 - 914 02/02/2021 DTL Assay, S ng/L 7:10 AM BRONZE PLATER Comment: ----ADDITIONAL INFORMATION---- In patients being evaluated [...] (Blood, 02/01/2021 5:21 AM 02/02/20 5:52 Venous) BRONZE PLATER AM BRONZE PLATER Gerald England M.D. LAB BLOOD ADD-ON Performing Organization Address City/[facility] Phon e Number [facility] - [address] [place], [place] [address] [place] [id number] Laboratories-[facility] 200 [facility] Folate (02/01/2021 5:21 AM BRONZE PLATER) P athologist Signature Folate, S 17.9 >=4.0 mcg/L 02/02/2021 7:09 DTL AM BRONZE PLATER Specimen Anatomical Collection Method Collection Time Receive d Time (Source) Location / / Volume Laterality Blood (Blood, 02/01/2021 5:21 AM 02/02/20 5:52 Venous) BRONZE PLATER AM BRONZE PLATER Gerald England M.D. LAB BLOOD ADD-ON Performing Organization Address City/[facility] Phon e Number [facility] - [address] [place] [address] [address] [facility] [place] [address] [facility] [address] [facility] Lipid Panel (02/01/2021 5:21 AM BRONZE PLATER) P athologist Signature Cholesterol, 157 mg/dL 02/01/2021 DTL Total 6:27 AM BRONZE PLATER Comment: ----REFERENCE VALUE---- Desirable: < 200 Borderline high: 200 - 239 High: > or = 240 Triglycerides 107 mg/dL 02/01/2021 6:27 AM BRONZE PLATER DTL Comment: ----REFERENCE VALUE---- Normal: <150 Borderline high: 150-199 High: 200-499 Very high: > or =500 Cholesterol, HDL, S 88 >=50 mg/dL 02/01/2021 6:27 AM BRONZE PLATER DTL Calculated LDL 48 mg/dL 02/01/2021 6:27 AM BRONZE PLATER DT L Comment: ----REFERENCE VALUE---- Desirable: <100 Above Desirable: 100-129 Borderline high: 130-159 High: 160-189 Very high: > or =190 Cholesterol, Non-HDL, Calculated 69 mg/dL 021 6:27 AM BRONZE PLATER DTL Comment: ----REFERENCE VALUE---- Desirable: <130 Above Desirable: 130-159 Borderline high: 160-189 High: 190-219 Very high: > or =220 Specimen Anatomical Collection Method Collection Time Receive d Time (Source) Location / / Volume Laterality Blood (Blood, 02/01/2021 5:21 AM 02/02/20 5:52 Venous) BRONZE PLATER AM BRONZE PLATER Gerald England M.D. LAB BLOOD ADD-ON Performing Organization Address City/[facility] Phon e Number [facility] - [address] [place], [place] [address] [address] [facility] [place] [address] [facility] 200 [facility] ECG 12 Lead (01/31/2021 11:35 PM BRONZE PLATER) P athologist Signature Ventricular Rate 60 BPM MUSE ECG/Min OR Interval 170 ms MUSE QRSD Interval 88 ms MUSE QT Interval 434 ms MUSE QTC Interval 434 ms MUSE P [place] 31 degrees MUSE R [place] -16 degrees MUSE T Wave [place] 3 degrees MUSE Specimen Anatomical Collection Method Collection Time Receive d Time (Source) Location / / Volume Laterality 01/31/2021 11:35 02/01/2021 6:10 PM BRONZE PLATER AM BRONZE PLATER Impressions MUSE - 02/01/2021 6:10 AM BRONZE PLATER Normal sinus rhythm Minimal voltage criteria for [...] Rapid POC, V Asymptomatic (01/31/2021 10:32 PM BRONZE PLATER) [facility] gist Method Time Signature SARS Undetected Undetected 01/31/2021 DTLR Coronavirus-2 10:52 PM BRONZE PLATER , RNA, Rapid POC, V Comment: Negative for SARS-CoV-2. The Cue COVID-19 test is a molecular shahzad t for SARS-CoV-2, the virus that causes COVID- 19. A Negative result means that the Cue COV ID-19 test did not detect SARS-CoV-2 virus in your sample. Cue COVID-19 test uses the [employer] System. This test has received Emergency Use Authorization (EUA) by the U.S. Food and Drug Administration (FDA) and is used per man ufacturer instructions. Performance characteristic s were verified by [facility] in a manner consistent with CLIA requirements. Fact sheets for this Emerg ency Use Authorization (EUA) can be found at the following links: Providers: https://[employer] a division of [employer]/documentation/prov iders.pdf Patients: https://[employer]/documentation/olayinka ents.pdf SARS Coronavirus 2, Source Nasopharynx DEFAULT 01/31/2021 10:52 PM BRONZE PLATER DTLR Specimen Anatomical Collection Method Collection Time Receive d Time (Source) Location / / Volume Laterality Varies 01/31/2021 10:32 01/31/2021 (Nasopharynx) PM BRONZE PLATER 10:32 PM BRONZE PLATER Nan Rios M.D. LAB MICROBIOLOGY - GENERAL O RDERABLES Performing Organization Address City/State/ZIP Code Phon e Number PERFORMING LABS, RE[place] [address] INTERFACE Ref Interface [address] [facility] DT Performing Labs, [place] [address] Interface [address] [facility] Electrolyte (Chem 4) Panel (01/31/2021 9:44 PM BRONZE PLATER) P athologist Signature Potassium, P 4.0 3.6 - 5.2 01/31/2021 STMA mmol/L 10:06 PM BRONZE PLATER Sodium, P 137 135 - 145 01/31/2021 STMA mmol/L 10:06 PM BRONZE PLATER Chloride, P 104 98 - 107 01/31/2021 STMA mmol/L 10:06 PM BRONZE PLATER Bicarbonate, P 24 22 - 29 01/31/2021 STMA mmol/L 10:06 PM BRONZE PLATER Anion Gap, P 9 7 - 15 01/31/2021 STMA 10:06 PM BRONZE PLATER Specimen Anatomical Collection Method Collection Time Receive d Time (Source) Location / / Volume Laterality Blood (Blood, 01/31/2021 9:44 PM 02/01/20 21 9:56 Venous) BRONZE PLATER PM BRONZE PLATER Gerald England M.D. LAB BLOOD ADD-ON Performing Organization Address City/[facility] Phon e Number [facility] - [address] [place], [place] [address] [facility] [place] [address] Laboratories-[facility] [address] (ABNORMAL) Prothrombin Time (PT) (01/31/2021 9:44 PM BRONZE PLATER) [facility] Method Time Signature Prothrombin 15.5 (H) 9.4 - 12.5 01/31/2021 DTL Time, P sec 10:27 PM BRONZE PLATER INR 1.4 0.9 - 1.1 01/31/2021 DTL 10:27 PM BRONZE PLATER Comment: ----ADDITIONAL INFORMATION---- Standard intensity warfarin therapeutic range: 2.0 to 3.0 ?? High intensity warfarin therapeutic rang e: 2.5 to 3.5 Specimen Anatomical Collection Method Collection Time Receive d Time (Source) Location / / Volume Laterality Blood (Blood, 01/31/2021 9:44 PM 02/01/20 21 Venous) BRONZE PLATER 10:06 PM BRONZE PLATER Gerald England M.D. LAB BLOOD ADD-ON Performing Organization Address City/[facility] Phon e Number [facility] - [address] APTT (Activated Partial Thromboplastin Time) (01/31/2021 9:44 PM BRONZE PLATER) P athologist Signature Activated 35 25 - 37 sec 01/31/2021 DT Partial 10:27 PM BRONZE PLATER Thrombopl Time, P Specimen Anatomical Collection Method Collection Time Receive d Time (Source) Location / / Volume Laterality Blood (Blood, 01/31/2021 9:44 PM 02/01/20 Venous) BRONZE PLATER 10:06 PM BRONZE PLATER Gerald England M.D. LAB BLOOD ADD-ON Performing Organization Address City/[facility] Phon e Number [facility] - [address] (ABNORMAL) Hemoglobin A1c (01/31/2021 9:44 PM BRONZE PLATER) P athologist Signature Hemoglobin A1c, 6.1 (H) 4.0 - 5.6 01/31/2021 DTL B % 10:18 PM BRONZE PLATER Comment: Hemoglobin A1c values of 5.7-6.4 percent indicate an increased risk for developing diabetes henrry skinner. In diabetic patients, HbA1c goals should be discussed with healthcare provider. Specimen Anatomical Collection Method Collection Time Receive d Time (Source) Location / / Volume Laterality Blood (Blood, 01/31/2021 9:44 PM 02/01/20 21 Venous) BRONZE PLATER 10:06 PM BRONZE PLATER Gerald England M.D. LAB BLOOD ADD-ON Performing Organization Address City/State/ZIP Code Phon e Number [facility] - [address] [place], [place] [address] [facility] [place] [address] Laboratories-[facility] [address] [facility] (ABNORMAL) CBC with Differential, Blood (01/31/2021 9:44 PM BRONZE PLATER) [facility] Method Time Signature Hemoglobin 11.1 (L) 11.6 - 01/31/2021 DTL 15.0 g/dL 10:12 PM BRONZE PLATER Hematocrit 34.9 (L) 35.5 - 01/31/2021 DTL 44.9 % 10:12 PM BRONZE PLATER Erythrocytes 3.84 (L) 3.92 - 01/31/2021 DTL 5.13 10:12 PM BRONZE PLATER x10(12)/L MCV 90.9 78.2 - 01/31/2021 DTL 97.9 fL 10:12 PM BRONZE PLATER RBC Distrib Width 14.4 12.2 - 01/31/2021 DTL 16.1 % 10:12 PM BRONZE PLATER Platelet Count 326 157 - 371 01/31/2021 DTL x10(9)/L 10:12 PM BRONZE PLATER Leukocytes 6.8 3.4 - 9.6 01/31/2021 DTL x10(9)/L 10:12 PM BRONZE PLATER Neutrophils 4.91 1.56 - 01/31/2021 DTL 6.45 10:12 PM BRONZE PLATER x10(9)/L Lymphocytes 1.52 0.95 - 01/31/2021 DTL 3.07 10:12 PM BRONZE PLATER x10(9)/L Monocytes 0.34 0.26 - 01/31/2021 DTL 0.81 10:12 PM BRONZE PLATER x10(9)/L Eosinophils 0.03 0.03 - 01/31/2021 DTL 0.48 10:12 PM BRONZE PLATER x10(9)/L Basophils 0.03 0.01 - 01/31/2021 DTL 0.08 10:12 PM BRONZE PLATER x10(9)/L Specimen Anatomical Collection Method Collection Time Receive d Time (Source) Location / / Volume Laterality Blood (Blood, 01/31/2021 9:44 PM 02/01/20 21 Venous) BRONZE PLATER 10:06 PM BRONZE PLATER Gerald England M.D. LAB BLOOD ADD-ON Performing Organization Address City/State/ZIP Code Phon e Number [facility] - [address] [place], [place] [address] [place] [address] [facility] [address] [facility] S-TSH (Thyroid-Stimulating Hormone - Sensitive) (01/31/2021 9:44 PM BRONZE PLATER) P athologist Signature TSH, Sensitive 0.3 0.3 - 4.2 01/31/2021 DTL mIU/L 10:59 PM BRONZE PLATER Specimen Anatomical Collection Method Collection Time Receive d Time (Source) Location / / Volume Laterality Blood (Blood, 01/31/2021 9:44 PM 02/01/20 21 Venous) BRONZE PLATER 10:06 PM BRONZE PLATER Gerald England M.D. LAB BLOOD ADD-ON Performing Organization Address City/[facility]/ZIP Code Phon e Number [facility] - [address] [place], [place] [address] [address] [place] [address] [place] [address] [address] [facility] AST (Aspartate Aminotransferase) (01/31/2021 9:44 PM BRONZE PLATER) [facility] Method Time Signature Aspartate 23 8 - 43 01/31/2021 DTL Aminotransferase U/L 10:59 PM BRONZE PLATER (AST), S Specimen Anatomical Collection Method Collection Time Receive d Time (Source) Location / / Volume Laterality Blood (Blood, 01/31/2021 9:44 PM 02/01/20 21 Venous) BRONZE PLATER 10:06 PM BRONZE PLATER Gerald England M.D. LAB BLOOD ADD-ON Performing Organization Address City/State/ZIP Code Phon e Number [facility] - [address] [place], [place] [address] [address] [facility] [place], [place] [id number] [place] [address] [address] [facility] ALT (Alanine Aminotransferase) (01/31/2021 9:44 PM BRONZE PLATER) [facility] gist Method Time Signature Alanine 15 7 - 45 01/31/2021 DTL Aminotransferase U/L 10:59 PM BRONZE PLATER (ALT), S Specimen Anatomical Collection Method Collection Time Receive d Time (Source) Location / / Volume Laterality Blood (Blood, 01/31/2021 9:44 PM 02/01/20 21 Venous) BRONZE PLATER 10:06 PM BRONZE PLATER Gerald England M.D. LAB BLOOD ADD-ON Performing Organization Address City/State/ZIP Code Phon e Number [facility] - [address] [place], [place] [address] [facility] [place] [address] Laboratories-[facility] [address] [...] tablet 1,000 mg Given 02/03/2021 6:56 AM BRONZE PLATER 1,000 mg (TYLENOL) 1,000 mg, oral, Every 6 hours PRN, mild pain or score 1-3 of 10, moderate pain or score 4-6 of 10, headaches, Starting on 02/01/21 at 0210 Given 02/02/2021 2:36 PM BRONZE PLATER 1,000 mg Given 02/02/2021 8:53 AM BRONZE PLATER 1,000 mg albuterol 90 mcg/actuation inhaler 2 puf f Given 02/03/2021 4:29 AM BRONZE PLATER 2 puffs 2 puff, inhalation, Every 6 hours PRN, wheezing, shortness of breath, Starting on 02/01/21 at 1115 apixaban tablet 5 mg (ELIQUIS) Given 02/03/2021 9:30 AM BRONZE PLATER 5 mg 5 mg, oral, 2 times daily, First dose on Tue02/02/21 at 2100 Given 02/02/2021 8:09 PM BRONZE PLATER 5 mg aspirin tablet 325 mg Given 02/02/2021 8:11 AM BRONZE PLATER 325 mg 325 mg, oral, Daily, First dose on 02/01/21 at 1030 Given 02/01/2021 10:54 AM BRONZE PLATER 325 mg atorvastatin tablet 40 mg (LIPITOR) Given 02/02/2021 8:09 PM BRONZE PLATER 40 mg 40 mg, oral, Daily at [...] 25 m cg Given 02/03/2021 9:29 AM BRONZE PLATER 25 mcg 25 mcg, oral, Daily, First dose on 02/01/21 at 0900, cholecalciferol (vitamin D3) orderable was interchanged for cholecalciferol (vitamin D3) tablet/capsule Given 02/02/2021 8:10 AM BRONZE PLATER 25 mcg Given 02/01/2021 9:11 AM BRONZE PLATER 25 mcg cyanocobalamin tablet 2,000 mcg (VITAMIN Given 02/03/2021 9: 28 AM BRONZE PLATER 2,000 mcg B12) 2,000 mcg, oral, Daily, First dose on 02/01/21 at 0900 Given 02/02/2021 8:08 AM BRONZE PLATER 2,000 mcg Given 02/01/2021 9:11 AM BRONZE PLATER 2,000 mcg diazePAM tablet 10 mg (VALIUM) Given 02/03/2021 10:51 AM BRONZE PLATER 10 mg 10 mg, oral, 2 times daily PRN, anxiety, Starting on 02/01/21 at 1016 Given 02/02/2021 10:24 PM BRONZE PLATER 10 mg Given 02/02/2021 8:53 AM BRONZE PLATER 10 mg docusate sodium 283 mg/5 mL enema 1 enem a (ENEMEEZ) 1 enema, rectal, 2 times daily PRN, cons tipation, Starting on 01/31/21 at 2125, If no bowel movement within 24 hours of starting bisac odyl FLUoxetine capsule 80 mg (PROzac) Given 02/03/2021 9:28 AM BRONZE PLATER 80 mg 80 mg, oral, Daily, First dose on 02/01/21 at 0900, FLUoxetine orderable was interchanged for FLUoxetine tablet/capsule Given 02/02/2021 8:10 AM BRONZE PLATER 80 mg Given 02/01/2021 9:10 AM BRONZE PLATER 80 mg folic acid tablet 800 mcg Given 02/03/2021 9:29 AM BRONZE PLATER 800 mcg 800 mcg, oral, Every morning, First dose on Tue02/01/21 at 0900 Given 02/02/2021 8:14 AM BRONZE PLATER 800 mcg Given 02/01/2021 10:00 AM BRONZE PLATER 800 mcg furosemide tablet 40 mg (LASIX) Given 02/03/2021 9:29 AM BRONZE PLATER 40 mg 40 mg, oral, 2 times daily, First dose on Tue02/02/21 at 0900 Given 02/02/2021 6:25 PM BRONZE PLATER 40 mg Given 02/02/2021 8:10 AM BRONZE PLATER 40 mg gadobutrol injection 0.01-30 mL (GADAVIS T) Given 02/03/2021 12:35 PM BRONZE PLATER 8 mL 0.01-30 mL, intravenous, Once in imaging, contrast, Starting on Tue02/03/21 at 1235, For 1 dose, Imaging Protocol Orders, Dose per Radiant Medication Guidelines heparin (porcine) Given 02/02/2021 6:29 AM BRONZE PLATER 5,000 Units Left Lower Abdomen injection 5,000 Units 5,000 Units, subcutaneous, Every 8 hours scheduled, First dose on Tue02/01/21 at 0600 Given 02/01/2021 9:17 PM BRONZE PLATER 5,000 Units Right Lower Abdomen Given 02/01/2021 1:56 PM BRONZE PLATER 5,000 Units Right Lower Abdomen lamoTRIgine tablet 200 mg (LaMICtal) Given 02/03/2021 9:29 AM BRONZE PLATER 200 mg 200 mg, oral, 2 times daily, First dose (after last modification) on 01/31/21 at 2245 Given 02/02/2021 8:09 PM BRONZE PLATER 200 mg Given 02/02/2021 8:11 AM BRONZE PLATER 200 mg lidocaine 5 % 1 patch Medication Applied 01/31/2021 10:44 PM 1 patch Upper Back (LIDODERM) BRONZE PLATER 1 patch, transdermal, Administer over 12 Hours, Daily, First dose on 01/31/21 at 2200, Remove after 12 hours. lidocaine 5 % ointment 1 application Given 02/02/2021 2:33 A M BRONZE PLATER 1 application (XYLOCAINE) 1 application, topical, 3 times daily PRN, mild pain or score 1-3 of 10, Starting on Tue02/01/21 at 1114, MAX of 20 g of ointment/day Given 02/01/2021 5:18 PM BRONZE PLATER 1 application loratadine tablet 10 mg (CLARITIN) Given 02/03/2021 9:30 AM BRONZE PLATER 10 mg 10 mg, oral, Daily, First dose on Tue02/01/21 at 0900, loratadine 10 mg oral daily was interchanged for cetirizine 5 mg oral twice daily Given 02/02/2021 8:11 AM BRONZE PLATER 10 mg Given 02/01/2021 9:12 AM BRONZE PLATER 10 mg magnesium oxide tablet 400 mg (MAG-OX) Given 02/02/2021 8:09 PM BRONZE PLATER 400 mg 400 mg, oral, Daily at bedtime, First dose on Tue02/01/21 at 2100, magnesium oxide 400 mg daily was interchanged for magnesium gluconate 500 mg daily Given 02/01/2021 9:17 PM BRONZE PLATER 400 mg meclizine tablet 25 mg (ANTIVERT) Given 02/02/2021 3:01 AM BRONZE PLATER 25 mg 25 mg, oral, 3 times daily PRN, dizziness, Starting on Tue02/01/21 at 0211 Given 02/01/2021 9:19 AM BRONZE PLATER 25 mg meclizine tablet 25 mg (ANTIVERT) Given 02/02/2021 8:09 PM BRONZE PLATER 25 mg 25 mg, oral, 4 times [...] 1 patch Left Shoulder patch (NICODERM CQ) BRONZE PLATER 1 patch, transdermal, Administer over 24 Hours, Daily, First dose on Tue02/01/21 at 0900 Medication Applied 02/02/2021 8:14 AM BRONZE PLATER 1 patch Right Arm Medication Applied 02/01/2021 9:13 AM BRONZE PLATER 1 patch Left Shoulder nicotine 21 mg/24 hr 1 Medication Applied 02/03/2021 2:55 PM 1 patch Left Shoulder patch (NICODERM CQ) BRONZE PLATER 1 patch, transdermal, Administer over 24 Hours, Daily, First dose on Tue02/03/21 at 1330 ondansetron ODT disintegrating tablet 4 mg Given 02/02/2021 10:2 4 PM BRONZE PLATER 4 mg (ZOFRAN-ODT) 4 mg, oral, Every 8 hours PRN, nausea, Starting on 01/31/21 at 2228, When splitting ODT at bedside, handle with gloves and a pill splitter to prevent moisture contact. Given 02/02/2021 2:36 PM BRONZE PLATER 4 mg Given 02/01/2021 1:12 AM BRONZE PLATER 4 mg oxyCODONE IR tablet 10 mg (ROXICODONE) Given 02/03/2021 5:02 PM BRONZE PLATER 10 mg 10 mg, oral, Every 6 hours PRN, moderate pain or score 4-6 of 10, Starting on 01/31/21 at 2229 Given 02/03/2021 2:42 AM BRONZE PLATER 10 mg Given 02/02/2021 8:08 PM BRONZE PLATER [address] tablet 40 mg (PROTONIX) Given 02/03/2021 4:58 PM BRONZE PLATER 40 mg 40 mg, oral, 2 times daily before breakfast and dinner, First dose on 02/01/21 at 0700, pantoprazole 40 mg oral twice daily was interchanged for esomeprazole 20 or 40 mg oral twice daily Swallow whole. Do NOT crush, chew, or split tablet. Given 02/03/2021 6:56 AM BRONZE PLATER 40 mg Given 02/02/2021 6:25 PM BRONZE PLATER 40 mg pregabalin capsule 150 mg (LYRICA) Given 02/01/2021 9:12 AM BRONZE PLATER 150 mg 150 mg, oral, Every morning, First dose on 02/01/21 at 0900 pregabalin capsule 300 mg (LYRICA) Given 01/31/2021 11:16 PM BRONZE PLATER 300 mg 300 mg, oral, Every evening, First dose on 01/31/21 at 2300 pregabalin capsule 300 mg (LYRICA) Given 02/03/2021 9:28 AM BRONZE PLATER 300 mg 300 mg, oral, Every morning, First dose (after last modification) on 02/02/21 at 0900 Given 02/02/2021 8:10 AM BRONZE PLATER 300 mg pregabalin capsule 600 mg (LYRICA) Given 02/02/2021 8:09 PM BRONZE PLATER 600 mg 600 mg, oral, Daily at bedtime, First dose (after last modification) on 02/01/21 at 2100 Given 02/01/2021 9:17 PM BRONZE PLATER 600 mg promethazine injection 6.25 mg (PHENERGA N) Given 02/01/2021 12:47 PM BRONZE PLATER 6.25 mg 6.25 mg, intravenous, Once, On 02/01/21 at 1030, For 1 dose QUEtiapine tablet 50 mg (SEROquel) Given 02/03/2021 12:39 AM BRONZE PLATER 50 mg 50 mg, oral, Bedtime PRN, agitation/sleep, Starting on 02/01/21 at 1310 rOPINIRole tablet 2 mg (REQUIP) Given 02/03/2021 2:42 AM BRONZE PLATER 2 mg 2 mg, oral, Daily PRN, restless legs, Starting on 01/31/21 at 2233 sennosides-docusate sodium 8.6-50 mg per Given 02/03/2021 9: 27 AM BRONZE PLATER 2 tablets tablet 2 tablet (SENOKOT-S) 2 [...] 300 mg (ZONEGRAN) Given 02/03/2021 9:28 AM BRONZE PLATER 300 mg 300 mg, oral, 2 times daily, First dose (after last modification) on 01/31/21 at 2245, Swallow whole. Do NOT crush, chew or open capsule. Given 02/02/2021 8:09 PM BRONZE PLATER 300 mg Given 02/02/2021 8:53 AM BRONZE PLATER 300 mg documented in this encounter Active and Recently Administered Medications Times are shown in BRONZE PLATER. Scheduled Medication Order 02/01/2021 02/02/2021 02/03/2021 apixaban tablet 5 mg (ELIQUIS) 2008 (Given - Pro vider: Marlene Grover R.N.) 6112 (Given - Provider: Karma Cervantes R.N.) 5 [...] 0911 (Not Given - Provider: Valarie suh RBesty - Reason: Patient/family refused) 0815 (Not Given [...] RBrittonN.) 1 application, topical, 3 times daily OR N, mild pain or score 1-3 of [...] tablet 4 mg (ZANAFLEX) 0210 (Held [facility] - Provider: Marbella Cutler M.D. - [...] COVID19 Pending 01/31/2021 01/31/2021 01/31/2021 10:53 PM BRONZE PLATER Assessment Noted Time PHQ-9 Depression Total Score: 23 02/02/2021 11:[address] documented as of this encounter
--- OUTSIDE RECORDS SUMMARY | 2022-11-06 15:35 | XMS_ITS | Encounter Summary ---
:1965 Author Organization [facility] Address [address] [place] [address] Care Team Providers Name Role Phone Unavailable Primary Care Provider Unavailable Encounter Details Date Type Department Care Team Description 02/03/2021 Orders Only Department of Neurology Leonides Kumar S troke ([facility]) (Primary in [facility] Lilian Dx) 200 [facility] 200 [place] [id number] [phone] Social History Tobacco Use Types Packs/Day Years [...]
--- OUTSIDE RECORDS SUMMARY | 2022-11-06 15:35 | XMS_ITS | Encounter Summary ---
:1965 Author Organization [facility] Address [address] [place] [address] Care Team Providers Name Role Phone Unavailable Primary Care Provider Unavailable Reason for Visit Reason Comments Michel Encounter Details Date Type Department Care Team Description 01/26/2021 Clinical Communication Department of Robert Diehl W8B/[facility] in [place], [place] 200 [facility] 200 [place] [phone] Social History Tobacco Use Types Packs/Day Years [...] you attend gnosticist or Patient refused 2021 mormon services? Do [...] 01/26/2021 5:19 PM CST Great thank you INAL BLOCK ASSEMBLER Addendum Note - Robert Diehl M.D. - 01/26/2021 2:50 PM TERMINAL BLOCK ASSEMBLER Addended by: ROBERT DIEHL on: 01/26/2021 02:50 PM Modules accepted: Orders INAL BLOCK ASSEMBLER Telephone Encounter - Robert Diehl M.D. - 01/26/2021 2:49 PM CST Believe MRI is ordered now. INAL BLOCK ASSEMBLER Telephone Encounter - Robert Diehl M.D. - 01/26/2021 2:47 PM CST I am sorry to learn of the patient's additional symptoms Unfortunately we cannot react as quickly as the emergency department which was recommended locally I will order a brain MRI and in-person or video visit to follow-up. Thank you INAL BLOCK ASSEMBLER Telephone Encounter - Allyssa Amaya - 01/26/2021 12:56 PM CST Patient calls checking the status of this request. Thank you. INAL BLOCK ASSEMBLER documented in this encounter Plan of Treatment Not on filedocumented as of this encounter Visit Diagnoses Diagnosis Stroke Cerebrovascular Accident Personal History - Primary documented in this encounter Additional Health Concerns Assessment Noted Time PHQ-9 Depression Total Score: 5 04/05/2019 8:00 AM CDT documented as of this encounter
--- OUTSIDE RECORDS SUMMARY | 2022-11-06 15:35 | XMS_ITS | Encounter Summary ---
:1965 Author Organization [facility] Address [address] [place] [address] Care Team Providers Name Role Phone Unavailable Primary Care Provider Unavailable Encounter Details Date Type Department Care Team Description 01/12/2021 Anticoagulation Visit Department of Neurology Zuly Alex, in [facility] R.N. 1216 [facility] [address] [place] [phone] Social History Tobacco Use Types Packs/Day Years [...] you attend islam or Patient refused 2021 scientologist services? Do [...] Target INR 2.0-3.[address] Argenis Diehl ([phone]). The patient was scheduled for an INR recheck on 01/09/21, however did not have an INR draw until late that afternoon. The results did not become available until after clinic hours. Patient's INR on 01/09/21 was 2.41. Discussed with Dr. Argenis Diehl ([phone]) who advises that the patient follow a [...] OF PHONE CALL. Test results, symptom assessment. ORT SHUTTLE DRIVER documented in this encounter Plan of Treatment Not on filedocumented as of this encounter Procedures Procedure Name Priority Date/Time Associated Diagnosis Comme nts PROTHROMBIN TIME (PT), Routine 01/09/2021 Resul ts for this P procedure are i n the results section . documented in this encounter Results Prothrombin Time (PT) (01/09/2021) P athologist Signature EXT INR 2.40 OTHER (SPECIFY IN VACATION GUIDE) Specimen (Source) Anatomical Location Collection Method / Collectio n Time Received Time / Laterality Volume Blood (Blood, 01/09/2021 Venous) Narrative This result has an attachment that is no t available. Historical Provider LAB BLOOD ADD-ON Performing Organization Address City/State/ZIP Code Phon e Number OTHER (SPECIFY IN VACATION GUIDE) OTHER (SPECIFY IN VACATION GUIDE) N/A documented in this encounter Visit Diagnoses Not on filedocumented in this encounter Additional Health Concerns Assessment Noted Time PHQ-9 Depression Total Score: 5 04/05/2019 8:00 AM CDT documented as of this encounter
--- OUTSIDE RECORDS SUMMARY | 2022-11-06 15:35 | XMS_ITS | Encounter Summary ---
:1965 Author Organization [facility] Address [address] [place] [address] Care Team Providers Name Role Phone Unavailable Primary Care Provider Unavailable Encounter Details Date Type Department Care Team Description 02/05/2021 Orders Only Pharmacy Prior Auth RO Elsewhere, Pcp [phone] Social History Tobacco Use Types Packs/Day Years [...]
--- OUTSIDE RECORDS SUMMARY | 2022-11-06 15:35 | XMS_ITS | Encounter Summary ---
:1965 Author Organization [facility] Address [address] [place] [address] Care Team Providers Name Role Phone Unavailable Primary Care Provider Unavailable Reason for Visit Outpatient (Routine) - Closed Specialty Diagnoses / Procedures Referred By Contact Refer red To Contact Video Medicine Diagnoses Stroke Cerebrovascular Accident Personal History Robert Diehl [place] [facility] M.D. [address] [place] [address] Referral ID Status Reason Start Date Expiration Date Visits Requ ested Visits Authorized [id number] Closed 12/30/2020 12/30/2021 1 1 Encounter Details Date Type Department Care Team Description 02/02/2021 Virtual Visit Department of Robert Diehl Stroke Cere brovascular Neurology jimmy Celaya M.D. Accident Personal [place], [place] 200 [facility] History 200 [place] [phone] Social History Tobacco Use Types Packs/Day Years [...] you attend yarsanism or Patient refused 2021 roman catholic services? Do you belong to any clubs or No 05/17/2022 organizations such as yarsanism groups, unions, [facility] or athletic groups, or school groups? How [...] department over the weekend was transferred to [facility] service where she is currently admitted. Therefore she will not be present for today's 8:00 a.m. Outpatient consultation. Highly appreciative of the [facility] Stroke Service cares. No charge. Electronically signed by: Robert Diehl M.D. 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
--- OUTSIDE RECORDS SUMMARY | 2022-11-06 15:35 | XMS_ITS | Encounter Summary ---
:1965 Author Organization [facility] Address [address] [place] [address] Care Team Providers Name Role Phone Unavailable Primary Care Provider Unavailable Encounter Details Date Type Department Care Team Description 01/20/2021 Anticoagulation Visit Department of Neurology Elvira Villalta, in [facility] R.N. 1216 [facility] [address] [place] [phone] Social History Tobacco Use Types Packs/Day Years [...] you attend evangelical or Patient refused 2021 methodist services? Do [...] call from Dr. Rosalva Aguila's nurse at [facility]. She states they have received our [...] Transfer of anticoagulation management back to PCP. 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
--- OUTSIDE RECORDS SUMMARY | 2022-11-06 15:35 | XMS_ITS | Encounter Summary ---
:1965 Author Organization [facility] Address [address] [place] [address] Care Team Providers Name Role Phone Unavailable Primary Care Provider Unavailable Reason for Referral MRI/CAT/PET Scan (Routine) - Closed Specialty Diagnoses / Procedures Referred By Contact Refer red To Contact Radiology Diagnoses Ataxia Robert Diehl M.D. [facility] Procedures CT Head Neck Angiogram with IV Contrast [address] [place] [address] Referral ID Status Reason Start Date Expiration Date Visits Requ ested Visits Authorized [id number] Closed 12/31/2020 12/31/2021 1 1 CILOR Reason for Visit MRI/CAT/PET Scan (Routine) - Closed Specialty Diagnoses / Procedures Referred By Contact Refer red To Contact Radiology Diagnoses Ataxia Robert Diehl M.D. [facility] Procedures CT Head Neck Angiogram with IV Contrast [address] [place], [place] [address] Referral ID Status Reason Start Date Expiration Date Visits Requ ested Visits Authorized [id number] Closed 12/31/2020 12/31/2021 1 1 Encounter Details Date Type Department Care Team Description 01/30/2021 Hospital Encounter Department of Radiology, Akhil Diehl Ataxia [facility], in M.D. [place], [place] [address] [facility] [place] [address] [place] [phone] (Wo rk) Social History Tobacco Use Types [...] you attend rastafari or Patient refused 2021 yarsani services? Do [...] this ANGIOGRAM WITH IV (most inpatients PM COUNCILOR proced ure are in CONTRAST and all the results outpatients) section. documented in this encounter Results CT Head Neck Angiogram with IV Contrast (01/30/2021 3:24 PM COUNCILOR) Anatomical Region Laterality Modality Head and Neck, Neuroradiology RST LOS, N/A C omputed Tomography, Computed Neuroradiology ARZ LOS, Neuroradiology T omography FLA [facility] Specimen (Source) Anatomical Collection Method Collection Time Re ceived Time Location / / Volume Laterality 01/30/2021 2:25 PM COUNCILOR Impressions 01/30/2021 3:18 PM COUNCILOR 1. 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 Slightly decreased high-grade stenosis a t the V3/4 junction with increased flow in the distal V4 segment. 2. Evolving, now chronic right cerebella r infarct. 3. 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 Narrative 01/30/2021 3:18 PM COUNCILOR EXAM: CT HEAD NECK ANGIOGRAM WITH IV [...] normal caliber bilater al MCAs, ACAs and table games supervisor. Patent anterior and right posterior communicating [...] normal caliber bilater al MCAs, ACAs and table games supervisor. Patent anterior and right posterior communicating [...] mg iodine/mL solution Given 01/30/2021 2:29 PM COUNCILOR 1 00 mL 1-200 mL (OMNIPAQUE) 1-200 mL, intravenous, Once in imaging, contrast, Starting on Tue01/30/21 at 1355, For 1 dose, Imaging Protocol Orders, Dose per Radiant Medication Guidelines sodium chloride (PF) 0.9 % injection 1-1 00 mL Given 01/30/2021 2:29 PM COUNCILOR 35 mL 1-100 mL, intravenous, Once, On Tue01/30/21 at 1400, For 1 dose, Imaging Protocol Orders documented in this encounter Additional Health Concerns Assessment Noted Time PHQ-9 Depression Total Score: 5 04/05/2019 8:00 AM CDT documented as of this encounter
--- OUTSIDE RECORDS SUMMARY | 2022-11-06 15:35 | XMS_ITS | Encounter Summary ---
:1965 Author Organization [facility] Address [address] [place] [address] Care Team Providers Name Role Phone Unavailable Primary Care Provider Unavailable Encounter Details Date Type Department Care Team Description 01/16/2021 Anticoagulation Visit Department of Elvira Villalta ([facility]) (Primary Dx); Neurology in E, R.N. Biological Chemist Anticoagulant Treatment [place] [address] [place], [place] [address] [place] [phone] [place], [place] [phone] (Work) [phone] Social History Tobacco Use Types Packs/Day Years [...] Target INR 2.0-3.[address] Argenis Diehl ([phone]). The patient was scheduled for an INR recheck on 01/19/21 but we received a message that she had it drawn today, 01/16/21, by [facility] Nurse. I spoke with RADHA Roman [facility] and she relays that the home POC INR today is 3.9. I discussed this with Dr. Argenis Diehl ([phone]) who advises that the patient follow a [...] her primary care provider, Dr. Neri Blackwell, [facility], [place], [place]. I have put in a call for Dr. Blackwell's care team to call us back. Will schedule an INR recheck for 01/20/21. I will fax a standing INR order to RADHA Roman, [facility], phone # [phone], fax #[phone]. She will fax results back to us. [...] OF PHONE CALL. Test results, symptom assessment. OL AGE PROGRAM ASSOCIATE documented in this encounter Plan of Treatment Not on filedocumented as of this encounter Procedures Procedure Name Priority Date/Time Associated Comments Diagnosis PROTHROMBIN TIME Routine 01/16/2021 2:10 PM Resul ts for this (PT), P SCHOOL AGE PROGRAM ASSOCIATE procedure are i n the results section. documented in this encounter Results Prothrombin Time (PT) (01/16/2021 2:10 PM SCHOOL AGE PROGRAM ASSOCIATE) P athologist Signature EXT INR 3.90 OTHER (SPECIFY IN TABLEAU ARCHITECT) Specimen (Source) Anatomical Collection Method Collection Time Re ceived Time Location / / Volume Laterality Blood (Blood, 01/16/2021 2:10 PM Venous) SCHOOL AGE PROGRAM ASSOCIATE Resulting Agency Comment [facility] Historical Provider LAB BLOOD ADD-ON Performing Organization Address City/State/ZIP Code Phon e Number OTHER (SPECIFY IN TABLEAU ARCHITECT) OTHER (SPECIFY IN TABLEAU ARCHITECT) N/A documented in this encounter Visit Diagnoses Diagnosis Stroke (HCC) - Primary Biological Chemist (Current) Anticoagulant Treatm ent documented in this encounter Additional Health Concerns Assessment Noted Time PHQ-9 Depression Total Score: 5 04/05/2019 8:00 AM CDT documented as of this encounter
--- OUTSIDE RECORDS SUMMARY | 2022-11-06 15:35 | XMS_ITS | Encounter Summary ---
:1965 Author Organization [facility] Address [address] [place] [address] Care Team Providers Name Role Phone Unavailable Primary Care Provider Unavailable Encounter Details Date Type Department Care Team Description 01/07/2021 Anticoagulation Visit Department of Neurology Zuly Alex, in [facility] R.N. 1216 [facility] [address] [place] [phone] Social History Tobacco Use Types Packs/Day Years [...] you attend sikhism or Patient refused 2021 mormon services? Do [...] is 2.28. Discussed with Dr. Ashley Castrejon ([phone]) who advises that the patient take 5 [...] OF PHONE CALL. Test results, symptom assessment. OOD MATCHER documented in this encounter Plan of Treatment Not on filedocumented as of this encounter Procedures Procedure Name Priority Date/Time Associated Diagnosis Comme nts PROTHROMBIN TIME (PT), Routine 01/07/2021 Resul ts for this P procedure are i n the results section . documented in this encounter Results Prothrombin Time (PT) (01/07/2021) P athologist Signature EXT INR 2.28 OTHER (SPECIFY IN STONEHAND) Specimen (Source) Anatomical Location Collection Method / Collectio n Time Received Time / Laterality Volume Blood (Blood, 01/07/2021 Venous) Narrative This result has an attachment that is no t available. Historical Provider LAB BLOOD ADD-ON Performing Organization Address City/State/ZIP Code Phon e Number OTHER (SPECIFY IN STONEHAND) OTHER (SPECIFY IN STONEHAND) N/A documented in this encounter Visit Diagnoses Not on filedocumented in this encounter Additional Health Concerns Assessment Noted Time PHQ-9 Depression Total Score: 5 04/05/2019 8:00 AM CDT documented as of this encounter
--- OUTSIDE RECORDS SUMMARY | 2022-11-06 15:35 | XMS_ITS | Encounter Summary ---
:1965 Author Organization [facility] Address [address] [place] [address] Care Team Providers Name Role Phone Unavailable Primary Care Provider Unavailable Encounter Details Date Type Department Care Team Description 02/02/2021 Orders Only Department of Neurology in Bisi Acevedo D.O. [place], [place] [address] [place] [address] 200 [place] [phone] [phone] (Wo rk) Social History Tobacco Use Types [...]
--- OUTSIDE RECORDS SUMMARY | 2022-11-06 15:35 | XMS_ITS | Encounter Summary ---
:[address] [facility] Address [address] [place] [address] Care Team Providers Name Role Phone Unavailable Primary Care Provider Unavailable Encounter Details Date Type Department Care Team Description 02/11/2021 Ancillary Procedure Department of Radiology [place] in [facility] raúl Quintana 200 [facility] 200 [place] [phone] (Wo rk) Social History Tobacco Use Types [...] you attend judaism or Patient refused 2021 hindu services? Do [...] bilateral thalami (series 3 image 36), bilateral CONVEYOR TECHNICIAN regio n (left greater than right, [...] bilateral thalami (series 3 image 36), bilateral CONVEYOR TECHNICIAN regio n (left greater than right, [...] bilateral thalami (series 3 image 36), bilateral CONVEYOR TECHNICIAN regio n (left greater than right, [...] bilateral thalami (series 3 image 36), bilateral CONVEYOR TECHNICIAN regio n (left greater than right, [...] bilateral thalami (series 3 image 36), bilateral CONVEYOR TECHNICIAN regio n (left greater than right, [...] bilateral thalami (series 3 image 36), bilateral CONVEYOR TECHNICIAN regio n (left greater than right, [...]
--- OUTSIDE RECORDS SUMMARY | 2022-11-06 15:35 | XMS_ITS | Encounter Summary ---
:1965 Author Organization [facility] Address [address] [place] [address] Care Team Providers Name Role Phone Unavailable Primary Care Provider Unavailable Encounter Details Date Type Department Care Team Description 01/20/2021 Clinical Communication Department of Elvira Villalta, Neurology in [place], [place] [address] [place] [address] [address] [place] [phone] Social History Tobacco Use Types Packs/Day Years [...] you attend worship or Patient refused 2021 anabaptist services? Do [...]
--- OUTSIDE RECORDS SUMMARY | 2022-11-06 15:35 | XMS_ITS | Encounter Summary ---
:1965 Author Organization [facility] Address [address] [place] [address] Care Team Providers Name Role Phone Unavailable Primary Care Provider Unavailable Encounter Details Date Type Department Care Team Description 01/05/2021 Anticoagulation Visit Department of Neurology Elvira Villalta, in [facility] R.N. 1216 [facility] [address] [place] [phone] Social History Tobacco Use Types Packs/Day Years [...] an INR at her outside clinic in [place], [place] today and I called the lab [phone] and was told she did not report [...] advised for today, she report to the [facility] as scheduled. Ms. Mosquera states she will do that. RECOMMENDED LEVEL OF CARE. The patient/caller is willing and able to follow the nurse's recommendation. RESPONSE TO ADVICE GIVEN. Patient/caller able to teach back. REFERENCES UTILIZED. Nursing clinical judgment utilized. Other interventions or information: Provider advice. TYPE OF PHONE CALL. INR management ARY HELPER Elvira Villalta R.N. - 01/05/2021 4:06 PM CST Patient's INR today is 1.47. Discussed with Dr. Neri Acevedo ([phone]) who advises that the patient take 7.5 [...] OF PHONE CALL. Test results, symptom assessment. ARY HELPER documented in this encounter Plan of Treatment Not on filedocumented as of this encounter Procedures Procedure Name Priority Date/Time Associated Comments Diagnosis PROTHROMBIN TIME Routine 01/05/2021 3:15 PM Resul ts for this (PT), P LIBRARY HELPER procedure are i n the results section. documented in this encounter Results Prothrombin Time (PT) (01/05/2021 3:15 PM LIBRARY HELPER) P athologist Signature EXT INR 1.47 OTHER (SPECIFY IN [facility]) Specimen (Source) Anatomical Collection Method Collection Time Re ceived Time Location / / Volume Laterality Blood (Blood, 01/05/2021 3:15 PM Venous) LIBRARY HELPER Narrative This result has an attachment that is no t available. Resulting Agency Comment [facility] Historical Provider LAB BLOOD ADD-ON Performing Organization Address City/State/ZIP Code Phon e Number OTHER (SPECIFY IN [facility]) OTHER (SPECIFY IN [facility]) N/A documented in this encounter Visit Diagnoses Not on filedocumented in this encounter Additional Health Concerns Assessment Noted Time PHQ-9 Depression Total Score: 5 04/05/2019 8:00 AM CDT documented as of this encounter
--- OUTSIDE RECORDS SUMMARY | 2022-11-06 15:36 | XMS_ITS | Encounter Summary ---
:1965 Author Organization [facility] Address [address] [place] [address] Care Team Providers Name Role Phone Unavailable Primary Care Provider Unavailable Reason for Visit Reason Comments Michel Encounter Details Date Type Department Care Team Description 09/04/2020 Clinical Communication Department of Robert Diehl W8B/Scharf Neurology in .. [place], [place] [address] [place] [address] 200 [place] [phone] [phone] Social History Tobacco Use Types Packs/Day Years [...] you attend restorationism or Patient refused 2021 taoist services? Do [...] etc. Thank you. Telephone Encounter - Allyssa mAaya - 09/05/2020 11:46 AM CDT Fax received w/the results of the MRI head MRA w/o dated 09/03/2020. Per our original request, we didlet them know that we needed the images sent to our attention as well. I have reached out to the facility asking them to be sure that the images are sent to Dr. Dielh's attention. Report scanned into the chart. documented in this encounter Plan of Treatment Not on filedocumented as of this encounter Visit Diagnoses Not on filedocumented in this encounter Additional Health Concerns Assessment Noted Time PHQ-9 Depression Total Score: 5 04/05/2019 8:00 AM CDT documented as of this encounter
--- OUTSIDE RECORDS SUMMARY | 2022-11-06 15:36 | XMS_ITS | Encounter Summary ---
:1965 Author Organization [facility] Address [address] [place] [address] Care Team Providers Name Role Phone Unavailable Primary Care Provider Unavailable Encounter Details Date Type Department Care Team Description 12/07/2019 Surgery RST ROMRadha MORAN OR Darlin Olmedo, SINUSOTOMY ENDOSCOPY [address] [facility] [place] [address] [address] [place] [address] [place] [phone] Social History Tobacco Use Types Packs/Day Years [...] you attend restorationist or Patient refused 2021 muslim services? Do [...] sinus rinse kit (jose ramon Dalal or Blanco). - Follow the directions on the bottle [...] our clinic or with another department at [facility], an appointment willbe made for you. If you have not received specific details (date, time, location) within 2 weeks of discharge, please contact our office at [phone] to inquire. If you are to follow up somewhere other than [facility], please schedule this appointment (in the timeframe recommended by your surgeon)at your earliest convenience. CONTACT INFORMATION: If you need to reach the Department of ENT at the [facility] regarding any questions during normal business hours, please call . If you are calling after normal business hours and have a concern that needs to be addressed urgently, please call the [facility] Flatbed Driver at and ask to speak to the ENT resident medical radiation tech. F DESIGN ENGINEER AttachmentsThe following attachments cannot be sent through Care Everywhere.Your Scopolamine Patch (Maldivian)documented in this encounter Medications at Time of [...] Extradural computer navigation was registered according to guest services's guidelines and confirmed to be accurate within [...] 5 mL Implants None Darlin Olmedo M.D. F DESIGN ENGINEER Brief Op Note - Jey Santana [...] Loss None Implants None Jey Santana M.D. F DESIGN ENGINEER documented in this encounter Plan of Treatment Not on filedocumented as of this encounter Procedures Procedure Name Priority Date/Time Associated Diagnosis Comme nts ADULT OXYGEN THERAPY Routine 12/07/2019 2:30 PM STAFF DESIGN ENGINEER EXTRADURAL COMPUTER 12/07/2019 12:13 PM Rhinosin usitis Chronic NAVIGATION STAFF DESIGN ENGINEER Mucocele Nasal Sinus Case Notes LOBBYIST 10:37 SINUSOTOMY ENDOSCOPY 12/07/2019 12:13 PM STAFF DESIGN ENGINEER Rhi nosinusitis Chronic FRONTAL Mucocele Nasal Sinus Case Notes LOBBYIST 10:37 documented in this encounter Visit Diagnoses Diagnosis Rhinosinusitis Chronic Mucocele Nasal Sinus documented in this encounter Administered Medications Inactive Administered Medications - up to 3 most recent administrations Medication Order MAR Action Action Date Dose Rate Site acetaminophen injection 1,000 New Bag 12/07/2019 2:38 PM 1,000 mg 400 mL/hr mg (OFIRMEV) STAFF DESIGN ENGINEER 1,000 mg, intravenous, at 400 mL/hr, [...] 1,000 mg (TYLENOL) Given 12/07/2019 12:06 PM STAFF DESIGN ENGINEER 1,000 mg 1,000 mg, oral, Once, On Tue12/07/19 at 1200, For 1 dose, Pre-Op aprepitant capsule 40 mg (EMEND) Given 12/07/2019 12:06 PM STAFF DESIGN ENGINEER 40 mg 40 mg, oral, Once as needed, prevent ponv, Starting on Tue12/07/19 at 1145, For 1 dose, Pre-Op caffeine tablet 200 mg Given 12/07/2019 12:06 PM STAFF DESIGN ENGINEER 200 mg 200 mg, oral, Once as needed, pre-op to prevent caffeine withdrawal headache or to enhance emergence from anesthesia/sedation, Starting on Tue12/07/19 at 1145, For 1 dose, Pre-Op, With sips cocaine 4 % external solution Given 12/07/2019 1:10 PM STAFF DESIGN ENGINEER 4 mL Other As needed, Starting on Tue12/07/19 at 1310, Intra-Op droperidol injection 0.625 mg (INAPSINE) Given 12/07/2019 2:37 PM STAFF DESIGN ENGINEER 0.625 mg 0.625 mg, intravenous, Every [...] 25 mcg (SUBLIMAZE) Given 12/07/2019 2:32 PM STAFF DESIGN ENGINEER 25 mcg 25 mcg, intravenous, Every 2 min PRN, For pain 4 or greater (maximum 100 mcg). If max dose of Fentanyl is reached and if pain is greater than 4, discontinue Fentanyl: give Hydromorphone, Starting on Tue12/07/19 at 1145, Pre-Op ketamine injection 10 mg (KETALAR) Given 12/07/2019 2:37 PM STAFF DESIGN ENGINEER 10 mg 10 mg, intravenous, Once as needed, Pain sedation mismatch AND RASS score less than -1, Starting on Tue12/07/19 at 1430, For 1 dose, PACU (only) lactated ringers New Bag 12/07/2019 3:48 PM STAFF DESIGN ENGINEER 20 mL/hr 20 mL/hr 20 mL/hr, intravenous, Continuous, Starting on Tue12/07/19 at 1400, PACU & Post-Op Continued from OR 12/07/2019 2:25 PM STAFF DESIGN ENGINEER 20 mL/hr 20 mL/hr lidocaine-EPINEPHrine 1 %-1:100,000 Given 12/07/2019 1:45 PM STAFF DESIGN ENGINEER 2 mL Other injection (XYLOCAINE W/EPI) As needed, Starting on Tue12/07/19 at 1320, Intra-Op Given 12/07/2019 1:20 PM STAFF DESIGN ENGINEER 1.5 mL Other metoprolol tablet 12.5 [...] 2 mg (VERSED) Given 12/07/2019 12:28 PM STAFF DESIGN ENGINEER 2 mg 2 mg, intravenous, Once as needed, anxiety, sedation, Starting on Tue12/07/19 at 1145, For 1 dose, Pre-Op ondansetron ODT disintegrating tablet 4 mg Given 12/07/2019 12:0 7 PM STAFF DESIGN ENGINEER 4 mg (ZOFRAN-ODT) 4 mg, sublingual, Once, On Tue12/07/19 at 1200, For 1 dose, Pre-Op, When splitting ODT at bedside, handle with gloves and a pill splitter to prevent moisture contact. oxymetazoline 0.05 % nasal spray Given 12/07/2019 1:42 PM STAFF DESIGN ENGINEER 1 application (AFRIN) As needed, Starting on Tue12/07/19 at 1342, Intra-Op scopolamine base 1 mg Medication Applied 12/07/2019 12:11 PM 1 patch Behind Right over 3 days 1 patch STAFF DESIGN ENGINEER Ear (TRANSDERM SCOP) 1 patch, transdermal, [...] Recently Administered Medications Times are shown in STAFF DESIGN ENGINEER. Scheduled Medication Order 12/05/2019 12/06/2019 12/07/2019 [...] (COMPLETED) 1251 (Given - Provider: Gini Garcia, GLUER AND WEDGER, DEVELOPMENTAL TRAINING COUNSELOR) 1,250 mg (rounded from 1,146 mg = [...]
--- OUTSIDE RECORDS SUMMARY | 2022-11-06 15:36 | XMS_ITS | Encounter Summary ---
:1965 Author Organization [facility] Address [address] [place] [address] Care Team Providers Name Role Phone Unavailable Primary Care Provider Unavailable Reason for Referral Outpatient (Routine) - Closed Specialty Diagnoses / Procedures Referred By Contact Refer red To Contact Otorhinolaryngology Darlin Olmedo M.D . [address] [phone] Referral ID Status Reason Start Date Expiration Date Visits Requ ested Visits Authorized [id number] Closed 12/18/2019 12/17/2020 1 1 ER MECHANIC Reason for Visit Outpatient (Routine) - Closed Specialty Diagnoses / Procedures Referred By Contact Refer red To Contact Otorhinolaryngology Darlin Olmedo M.D . [address] [phone] Referral ID Status Reason Start Date Expiration Date Visits Requ ested Visits Authorized [id number] Closed 11/29/2019 11/28/2020 1 1 Encounter Details Date Type Department Care Team Description 12/18/2019 Office Visit Department of Darlin Olmedo Mucocele Nasa l Sinus Otorhinolaryngology jimmy Brumfield M.D. (Primary Dx) [place] [address] [facility] [address] [place] [phone] Social History Tobacco Use Types Packs/Day Years [...] you attend hindu or Patient refused 2021 advent services? Do [...] we will refer to neurology headache clinic. ER MECHANIC documented in this encounter Plan of [...]
--- OUTSIDE RECORDS SUMMARY | 2022-11-06 15:36 | XMS_ITS | Encounter Summary ---
:1965 Author Organization [facility] Address [address] [place] [address] Care Team Providers Name Role Phone Unavailable [...] 12/07/2019 12:15 Results for this EXAM PM SALT MACHINE OPERATOR procedure are i n the results section. documented in this encounter Results NOSE-Otorhinolaryngology Image Exam (12/07/2019 12:15 PM SALT MACHINE OPERATOR) Specimen (Source) Anatomical Collection Method Collection Time Re ceived Time Location / / Volume Laterality 12/07/2019 12:15 PM SALT MACHINE OPERATOR Narrative [facility] - 12/07/2019 2:07 PM SALT MACHINE OPERATOR This order has been created [...]
--- OUTSIDE RECORDS SUMMARY | 2022-11-06 15:36 | XMS_ITS | Encounter Summary ---
:[address] [facility] Address [address] [place] [address] Care Team Providers Name Role Phone Unavailable [...] 01/08/2020 3:15 Results for this EXAM PM PLASTIC OUTFITTER procedure are i n the results section. documented in this encounter Results NOSE-Otorhinolaryngology Image Exam (01/08/2020 3:15 PM PLASTIC OUTFITTER) Specimen (Source) Anatomical Collection Method Collection Time Re ceived Time Location / / Volume Laterality 01/08/2020 3:11 PM PLASTIC OUTFITTER Narrative [facility] - 01/08/2020 3:29 PM PLASTIC OUTFITTER This order has been created and auto-finalized [...]
--- OUTSIDE RECORDS SUMMARY | 2022-11-06 15:36 | XMS_ITS | Encounter Summary ---
:1965 Author Organization [facility] Address [address] [place] [address] Care Team Providers Name Role Phone Unavailable Primary Care Provider Unavailable Encounter Details Date Type Department Care Team Description 08/05/2020 Clinical Communication Department of Honor[place], Otorhinolaryngology in [place], [place] [address] [place], [place] [address] [facility] [phone] Social History Tobacco Use Types Packs/Day Years [...] you attend amish or Patient refused 2021 samaritan services? Do [...] called patient to schedule COVID testing at [facility] prior to appointment. Didn't answer so jessica [...]
--- OUTSIDE RECORDS SUMMARY | 2022-11-06 15:36 | XMS_ITS | Encounter Summary ---
:1965 Author Organization [facility] Address [address] [place] [address] Care Team Providers Name Role Phone Unavailable Primary Care Provider Unavailable Reason for Referral Outpatient (Routine) - Closed Specialty Diagnoses / Procedures Referred By Contact Refer red To Contact Neurology Robert Diehl M. D. [facility] [address] [place] [address] Referral ID Status Reason Start Date Expiration Date Visits Requ ested Visits Authorized [id number] Closed 09/15/2020 09/15/2021 1 1 Reason for Visit Appointment Request (Routine) - Closed Specialty Diagnoses / Procedures Referred By Contact Refer red To Contact Neurology Referral ID Status Reason Start Date Expiration Date Visits Requ ested Visits Authorized [id number] Closed 07/31/2020 07/31/2021 1 1 Encounter Details Date Type Department Care Team Description 09/15/2020 Virtual Visit Department of Robert Diehl [place] An eurysm Nonruptured (HCC) (Primary Dx); Neurology in M.D. Nicotine Dependence ; [place], [place] 200 [facility] Aneurysm Cerebral Unruptured (HCC) [address] [place] [phone] Social History Tobacco Use Types Packs/Day [...] you attend yazdanism or Patient refused 2021 quaker services? Do [...] via the telephone and not in a tiuj-aj-aure manner. Ms. Mosquera is a 55-year-old woman [...] Name Type Priority Associated Diagnoses Order S [facility] Neurology office Outpatient Referral Routine Expe [...] nt right vertebral artery. RADHA, MCA, and seafood harvester are patent. Neck MRA: Conventional three-vessel arch [...] nt right vertebral artery. RADHA, MCA, and seafood harvester are patent. Neck MRA: Conventional three-vessel arch [...]
--- OUTSIDE RECORDS SUMMARY | 2022-11-06 15:36 | XMS_ITS | Encounter Summary ---
:[address] [facility] Address [address] [place] [address] Care Team Providers Name Role Phone Unavailable Primary Care Provider Unavailable Reason for Referral MRI/CAT/PET Scan (Routine) - Closed Specialty Diagnoses / Procedures Referred By Contact Refer red To Contact Radiology Diagnoses Ataxia Robert Diehl M.D. [facility] Procedures CT Head Neck Angiogram with IV Contrast [address] [place] [address] Referral ID Status Reason Start Date Expiration Date Visits Requ ested Visits Authorized [id number] Closed 12/30/2020 12/30/2021 1 1 ER MACHINE MRI/CAT/PET Scan (Routine) - Closed Specialty Diagnoses / Procedures Referred By Contact Refer red To Contact Radiology Diagnoses Stroke Cerebrovascular Accident Personal History Robert Diehl M.D. [facility] Procedures CT Head without IV Contrast [address] [place] [address] Referral ID Status Reason Start Date Expiration Date Visits Requ ested Visits Authorized [id number] Closed 12/30/2020 12/30/2021 1 1 ER MACHINE Reason for Visit MRI/CAT/PET Scan (Routine) - Closed Specialty Diagnoses / Procedures Referred By Contact Refer red To Contact Radiology Diagnoses Ataxia Robert Diehl M.D. [facility] Procedures CT Head Neck Angiogram with IV Contrast [address] [place] [address] Referral ID Status Reason Start Date Expiration Date Visits Requ ested Visits Authorized [id number] Closed 12/30/2020 12/30/2021 1 1 Encounter Details Date Type Department Care Team Description 12/31/2020 Hospital Encounter Department of Robert Diehl Stroke Cerebrovascular Accident Personal History; Radiology, Severiano Celaya M.D. [facility], in [address] [facility] [address] [address] [facility] [phone] [place], [place] (Work) [phone] Social History Tobacco Use Types Packs/Day Years [...] you attend islam or Patient refused 2021 bahai services? Do [...] Robert Diehl M.D. - 12/31/2020 5:17 PM BURRER MACHINE I called and discussed the results with [...] by: Robert Diehl M.D. 12/31/20 5:16 PM BURRER MACHINE Stroke Cerebrovascular Accident Personal History Plan: CT Head without IV Contrast, CT Head without IV Contrast Ataxia Plan: CT Head Neck Angiogram with IV Contrast, CT Head Neck Angiogram with IV Contrast ER MACHINE documented in this encounter Plan of Treatment Not on filedocumented as of this encounter Procedures Procedure Name Priority Date/Time Associated Diagnosis Comme nts CT HEAD WITHOUT RAD - Routine 12/31/2020 3:34 Stroke Results for IV CONTRAST (most inpatients PM BURRER MACHINE Cerebrovascular this pro cedure and all Accident Personal are in the outpatients) History results section. CT HEAD NECK RAD - Routine 12/31/2020 3:34 Ataxia Results for ANGIOGRAM WITH (most inpatients PM BURRER MACHINE this proc edure IV CONTRAST and all are in the outpatients) results section. documented in this encounter Results CT Head Neck Angiogram with IV Contrast (12/31/2020 3:34 PM BURRER MACHINE) Anatomical Region Laterality Modality Head and Neck, Neuroradiology RST LOS, N/A C omputed Tomography, Computed Neuroradiology ARZ LOS, Neuroradiology T omography FLA [facility] Specimen (Source) Anatomical Collection Method Collection Time Re ceived Time Location / / Volume Laterality 12/31/2020 3:49 PM BURRER MACHINE Impressions 12/31/2020 4:54 PM BURRER MACHINE 1. Evolving right cerebellar infarct with decreased [...] oid ICA aneurysms. Narrative 12/31/2020 4:54 PM BURRER MACHINE EXAM: CT HEAD WITHOUT IV CONTRAST, CT [...] discussed with ordering physici Dr. Fazal abbasi ([id number]) at 4:54 PM on 12/31/2020. Procedure Note [...] discussed with ordering physici Dr. Fazal abbasi ([id number]) at 4:54 PM on 12/31/2020. IMPRESSION: 1. [...] Head without IV Contrast (12/31/2020 3:34 PM BURRER MACHINE) Anatomical Region Laterality Modality Head, Neuroradiology RST LOS, N/A Computed T omography, Computed Neuroradiology ARZ LOS, Neuroradiology T omography FLA LOS Specimen (Source) Anatomical Collection Method Collection Time Re ceived Time Location / / Volume Laterality 12/31/2020 3:49 PM BURRER MACHINE Impressions 12/31/2020 4:54 PM BURRER MACHINE 1. Evolving right cerebellar infarct with decreased [...] oid ICA aneurysms. Narrative 12/31/2020 4:54 PM BURRER MACHINE EXAM: CT HEAD WITHOUT IV CONTRAST, CT [...] Findings discussed with ordering physicDr. Fazal crandall ([id number]) at 4:54 PM on 12/31/2020. Procedure Note [...] Findings discussed with ordering physici anDr. Diehl ([id number]) at 4:54 PM on 12/31/2020. IMPRESSION: 1. [...] mg iodine/mL solution Given 12/31/2020 3:34 PM BURRER MACHINE 1 00 mL 1-200 mL (OMNIPAQUE) 1-200 mL, intravenous, Once in imaging, contrast, Starting on Tue12/31/20 at 1411, For 1 dose, Imaging Protocol Orders, Dose per Radiant Medication Guidelines sodium chloride (PF) 0.9 % injection 1-1 00 mL Given 12/31/2020 3:34 PM BURRER MACHINE 35 mL 1-100 mL, intravenous, Once, On Tue12/31/20 at 1415, For 1 dose, Imaging Protocol Orders documented in this encounter Additional Health Concerns Assessment Noted Time PHQ-9 Depression Total Score: 5 04/05/2019 8:00 AM CDT documented as of this encounter
--- OUTSIDE RECORDS SUMMARY | 2022-11-06 15:36 | XMS_ITS | Encounter Summary ---
:[address] [facility] Address [address] [place] [address] Care Team Providers Name Role Phone Unavailable Primary Care Provider Unavailable Reason for Visit Reason Onset Date Comments Medication Question 01/08/2020 Encounter Details Date Type Department Care Team Description 01/08/2020 Clinical Department of [place], Medication Communication Otorhinolaryngology in [place], [place] [address] [facility] [address] [place] [phone] [place] [address] Social History Tobacco Use Types Packs/Day Years [...] you attend restoration or Patient refused 2021 scientologist services? Do [...] not covered. Patient will do regular Flonase RPROOF BAG CUTTING MACHINE OPERATOR Telephone Encounter - Donna Martines - 01/08/2020 4:21 PM CST [facility] called about the Fluticasone Propionate (Flonase) prescription that was put through today. The insurance will not cover it because at the end of the SIG it says Sensimist. Please call the pharmacy at [phone], or place another order. Thank you, Donna RPROOF BAG CUTTING MACHINE OPERATOR documented in this encounter Plan of Treatment Not on filedocumented as of this encounter Visit Diagnoses Not on filedocumented in this encounter Additional Health Concerns Assessment Noted Time PHQ-9 Depression Total Score: 5 04/05/2019 8:00 AM CDT documented as of this encounter
--- OUTSIDE RECORDS SUMMARY | 2022-11-06 15:36 | XMS_ITS | Encounter Summary ---
:1965 Author Organization [facility] Address [address] [place] [address] Care Team Providers Name Role Phone Unavailable Primary Care Provider Unavailable Reason for Visit Reason Comments shyam Encounter Details Date Type Department Care Team Description 07/29/2020 Clinical Communication Department of Robert Diehl [id number] Neurology in .. [place], [place] [address] [place] [address] [place] [phone] Social History Tobacco Use Types Packs/Day Years [...] you attend nondenominational or Patient refused 2021 voodoo services? Do [...] for magnetic resonance angiogram be [facility] to [facility]. José Miguel advise what the exact testing [...]
--- OUTSIDE RECORDS SUMMARY | 2022-11-06 15:36 | XMS_ITS | Encounter Summary ---
:1965 Author Organization [facility] Address [address] [place] [address] Care Team Providers Name Role Phone Unavailable Primary Care Provider Unavailable Reason for Visit Outpatient (Routine) - Closed Specialty Diagnoses / Procedures Referred By Contact Refer red To Contact Otorhinolaryngology Darlin Olmedo M.D . [facility] [address] [place] [phone] Referral ID Status Reason Start Date Expiration Date Visits Requ ested Visits Authorized [id number] Closed 12/18/2019 12/17/2020 1 1 Encounter Details Date Type Department Care Team Description 01/08/2020 Office Visit Department of Darlin Olmedo Mucocele Nasa l Sinus Otorhinolaryngology jimmy Brumfield M.D. (Primary Dx) [address] [place] [phone] Social History Tobacco Use Types Packs/Day Years [...] you attend protestant or Patient refused 2021 sikh services? Do you belong to any clubs or No 05/17/2022 organizations such as protestant groups, [employer], [employer] or athletic groups, or school groups? How [...] will continue saline irrigations and Flonase. K LAYER Associated attestation - Darlin Olmedo M.D. - 01/16/2020 5:45 PM BRICK LAYER I saw and evaluated the patient, participating [...]
--- OUTSIDE RECORDS SUMMARY | 2022-11-06 15:36 | XMS_ITS | Encounter Summary ---
:1965 Author Organization [facility] Address [address] [place] [address] Care Team Providers Name Role Phone Unavailable Primary Care Provider Unavailable Encounter Details Date Type Department Care Team Description 12/07/2019 Anesthesia Event RST ROMB MAIN OR Leonides Walker, [address] [facility] [place] [address] [address] [place] [address] [place] [phone] (Wo rk) Anesthesia Record Procedure Summary Procedure [...] h andoff to the receiving staff during [facility] we 1. Identified the patient 2. [...] Simin valentine, Jey García, (created via procedure BIOMEDICAL ENGINEERING TECHNICIAN, SALES OFFICER BIOMEDICAL ENGINEERING TECHNICIAN, CRN A documentation); Mask Ventilation: Easy mask; [...] you attend rastafarian or Patient refused 2021 protestant services? Do you belong to any clubs or No 05/17/2022 organizations such as rastafarian groups, unions, [employer] or athletic groups, or school groups? How [...] Procedure Summary Date: 12/07/19 Room / Location: [address] [facility] in [place], [place] Anesthesia Start: 1234 Anesthesia Stop: 1434 [...] Promethazine; otherwise, uneventful recovery with outpt dispo. PHONE ENGINEER Anesthesia Procedure Notes - Gini Garcai APRN, CRNA - 12/07/2019 12:47 PM CSTAssociated [...] Procedure outcome: successful Airway event: no complications PHONE ENGINEER Anesthesia Preprocedure Evaluation - Leonides Walker M.D. - 12/07/2019 11:59 AM CST Preprocedure Anesthesia & H&P Assessment Procedure Summary Date/Time: 12/07/19 1119 Procedures: SINUSOTOMY ENDOSCOPY FRONTAL. (Bilateral Nose) EXTRADURAL COMPUTER NAVIGATION. 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 Location: [address] [facility] in [place], [place] Provider: Darlin Olmedo M.D. Pertinent components [...] #11 Patent Foramen Ovale (HCC) Noted on [id number]/ ECHO otherwise normal. I will not pursue [...] with patient /legal guardian or through an computer art instructor. The use of blood products not discussed Approval to Proceed: approved for anesthesia PHONE ENGINEER documented in this encounter Plan of Treatment Not on filedocumented as of this encounter Procedures Procedure Name Priority Date/Time Associated Comments Diagnosis LDA ANE ENDOTRACHEAL Routine 12/07/2019 12:47 Res ults for this AIRWAY PM TELEPHONE ENGINEER procedure are i n the results section. documented in this encounter Results LDA ANE ENDOTRACHEAL AIRWAY (12/07/2019 12:47 PM TELEPHONE ENGINEER) Narrative Gini Garcia APRN, CRNA - 2019 12:47 PM TELEPHONE ENGINEER Gini Garcia APRN, CRNA ? 12/07/2019 [...] dexamethasone injection (DECADRON) Given 12/07/2019 12:43 PM TELEPHONE ENGINEER 4 mg As needed, Starting on Tue12/07/19 at 1243, Anesthesia Intra-op ePHEDrine (PF) injection Given 12/07/2019 12:48 PM TELEPHONE ENGINEER 5 mg intravenous, As needed, Starting on Tue12/07/19 at 1242, Anesthesia Intra-op Given 12/07/2019 12:42 PM TELEPHONE ENGINEER 25 mg fentaNYL injection 25 mcg (SUBLIMAZE) Given 12/07/2019 2:32 PM TELEPHONE ENGINEER 25 mcg 25 mcg, intravenous, Every 2 min PRN, For pain 4 or greater (maximum 100 mcg). If max dose of Fentanyl is reached and if pain is greater than 4, discontinue Fentanyl: give Hydromorphone, Starting on Tue12/07/19 at 1145, Pre-Op lactated ringers New Bag 12/07/2019 12:39 PM TELEPHONE ENGINEER intravenous, Continuous Infusion: Per Instructions PRN, Starting on Tue12/07/19 at 1239, Anesthesia Intra-op lidocaine (PF) (cardiac) injection Given 12/07/2019 12:40 PM TELEPHONE ENGINEER 100 mg intravenous, As needed, Starting on Tue12/07/19 at 1240, Anesthesia Intra-op ondansetron (PF) injection (ZOFRAN) Given 12/07/2019 1:57 PM TELEPHONE ENGINEER 4 mg intravenous, As needed, Starting on Tue12/07/19 at 1357, Anesthesia Intra-op phenylephrine injection Given 12/07/2019 12:50 PM TELEPHONE ENGINEER 100 mcg intravenous, As needed, Starting on Tue12/07/19 at 1246, Anesthesia Intra-op Given 12/07/2019 12:48 PM TELEPHONE ENGINEER 100 mcg Given 12/07/2019 12:46 PM TELEPHONE ENGINEER 100 mcg propofol 10 mg/mL infusion Rate/Dose 12/07/2019 75 mcg/kg/min 34.4 m L/hr (DIPRIVAN) Change 12:46 PM TELEPHONE ENGINEER intravenous, Continuous Infusion: Per Instructions PRN, Starting on Tue12/07/19 at 1241, Anesthesia Intra-op New Bag 12/07/2019 12:41 PM TELEPHONE ENGINEER 250 mcg/kg/min 115 mL/hr propofol injection (DIPRIVAN) Given 12/07/2019 12:42 PM TELEPHONE ENGINEER 100 mg intravenous, As needed, Starting on Tue12/07/19 at 1242, Anesthesia Intra-op remifentanil 20 mcg/mL in Rate/Dose 12/07/2019 1:43 0.1 mcg/kg/min 2 2.9 mL/hr NaCl 0.9% 100 mL infusion Change PM TELEPHONE ENGINEER (ULTIVA) Continuous Infusion: Per Instructions PRN, Starting on Tue12/07/19 at 1246, Anesthesia Intra-op Rate/Dose Change 12/07/2019 12:53 PM TELEPHONE ENGINEER 0.2 mcg/kg/min 45.8 mL/hr New Bag 12/07/2019 12:46 PM TELEPHONE ENGINEER 0.25 mcg/kg/min 57.3 mL/hr succinylcholine (PF) injection (ANECTINE ) Given 12/07/2019 12:42 PM TELEPHONE ENGINEER 10 mg intravenous, As needed, Starting on Tue12/07/19 at 1242, Anesthesia Intra-op vancomycin in NaCl 0.9% IVPB 1,250 mg Given 12/07/2019 12:51 PM TELEPHONE ENGINEER 1.25 g 1,250 mg (rounded from [...]
--- OUTSIDE RECORDS SUMMARY | 2022-11-06 15:36 | XMS_ITS | Encounter Summary ---
:1965 Author Organization [facility] Address [address] [place] [address] Care Team Providers Name Role Phone Unavailable Primary Care Provider Unavailable Encounter Details Date Type Department Care Team Description 12/08/2019 Documentation Department of Darlin Olmedo, Otorhinolaryngology in [place], [place] [address] [place] [address] 200 [place] [phone] [phone] Social History Tobacco Use Types Packs/Day Years [...] you attend yazdanism or Patient refused 2021 sabianism services? Do [...] Chronicpain for spine pathology with oxycodone use senior care. Additional doses of oxycodone not sufficient for [...] she is currently having. -Dr. Clemente Medley ONAL CLIMATE CHANGE ANALYST documented in this encounter Plan of Treatment Not on filedocumented as of this encounter Visit Diagnoses Not on filedocumented in this encounter Additional Health Concerns Assessment Noted Time PHQ-9 Depression Total Score: 5 04/05/2019 8:00 AM CDT documented as of this encounter
--- OUTSIDE RECORDS SUMMARY | 2022-11-06 15:36 | XMS_ITS | Encounter Summary ---
:1965 Author Organization [facility] Address [address] [place] [address] Care Team Providers Name Role Phone Unavailable Primary Care Provider Unavailable Reason for Referral MRI/CAT/PET Scan (Routine) - Closed Specialty Diagnoses / Procedures Referred By Contact Refer red To Contact Radiology Diagnoses Ataxia Robert Fowler M.D. [facility] Procedures CT Head Neck Angiogram with IV Contrast [address] [place] [address] Referral ID Status Reason Start Date Expiration Date Visits Requ ested Visits Authorized [id number] Closed 12/31/2020 12/31/2021 1 1 USION SPECIAL EDUCATOR Outpatient (Routine) - Closed Specialty Diagnoses / Procedures Referred By Contact Refer red To Contact Video Medicine Diagnoses Stroke Cerebrovascular Accident Personal History Robert Fowler [facility] Margot Quintana [address] [place] [address] Referral ID Status Reason Start Date Expiration Date Visits Requ ested Visits Authorized [id number] Closed 12/30/2020 12/30/2021 1 1 USION SPECIAL EDUCATOR MRI/CAT/PET Scan (Routine) - Closed Specialty Diagnoses / Procedures Referred By Contact Refer red To Contact Radiology Diagnoses Ataxia Robert Fowler M.D. [facility] Procedures CT Head Neck Angiogram with IV Contrast [address] [place] [address] Referral ID Status Reason Start Date Expiration Date Visits Requ ested Visits Authorized [id number] Closed 12/30/2020 12/30/2021 1 1 USION SPECIAL EDUCATOR MRI/CAT/PET Scan (Routine) - Closed Specialty Diagnoses / Procedures Referred By Contact Refer red To Contact Radiology Diagnoses Stroke Cerebrovascular Accident Personal History Robert Fowler M.D. [facility] Procedures CT Head without IV Contrast [address] [place] [address] Referral ID Status Reason Start Date Expiration Date Visits Requ ested Visits Authorized [id number] Closed 12/30/2020 12/30/2021 1 1 USION SPECIAL EDUCATOR Reason for Visit Reason Comments Symptom Assessment Encounter Details Date Type Department Care Team Description 12/22/2020 Clinical Communication Department of Robert Fowler mptom Assessment Neurology jimmy Celaya M.D. [place], [address] [place], [place] [address] [facility] [address] [place], [place] [phone] [address] (Work) [phone] Social History Tobacco Use Types Packs/Day Years [...] you attend worship or Patient refused 2021 restorationist services? Do [...] Robert Fowler M.D. - 12/31/2020 5:17 PM INCLUSION SPECIAL EDUCATOR Addended by: ROBERT FOWLER on: 12/31/2020 05:17 PM Modules accepted: Orders USION SPECIAL EDUCATOR Addendum Note - Robert Fowler M.D. - 12/30/2020 8:34 AM INCLUSION SPECIAL EDUCATOR Addended by: ROBERT FOWLER on: 12/30/2020 08:34 AM Modules accepted: Orders USION SPECIAL EDUCATOR Telephone Encounter - Zuly Alex R.N. - 12/29/2020 4:48 PM CST The patient telephones back today. She did present to the local ED in [place] for evaluation of her vertigo. She shares [...] needs to get in contact with her [facility] neurologist. The patient reports that at her [...] 911 or [address] someone drive her to [facility] as well. She agrees to call 911 for recurrent episodes. RECOMMENDED LEVEL OF CARE. The patient/caller is willing and able to follow the nurse's recommendation. RESPONSE TO ADVICE GIVEN. Patient/caller able to teach back. REFERENCES UTILIZED. Nursing clinical judgment utilized. Other interventions or information: Provider advice. TYPE OF PHONE CALL. Symptom assessment. USION SPECIAL EDUCATOR Telephone Encounter - Robert Fowler M.D. - [...] by: Robert Fowler M.D. 12/23/20 8:21 AM INCLUSION SPECIAL EDUCATOR USION SPECIAL EDUCATOR Telephone Encounter - Zuly Alex R.N. - 12/22/2020 5:25 PM CST 5:17 pm. Tried calling to assure she could reach her son to take her to the ED. No answer. USION SPECIAL EDUCATOR Telephone Encounter - Zuly Alex R.N. - [...] her to the nearest emergency room or [id number]. She expressed concerns about going to the [...] the nearest ED which would be in [place]. He did not answer. I offered to [...] advice. TYPE OF PHONE CALL. Symptom assessment. USION SPECIAL EDUCATOR Telephone Encounter - Robert Fowler M.D. - 12/22/2020 3:29 PM CST Please call patient in triage whether she needs to be seen in the local emergency department for concern of acute stroke? USION SPECIAL EDUCATOR documented in this encounter Plan of Treatment Scheduled Referrals Name Type Priority Associated Diagnoses Order S chedule Video anyplace Outpatient Referral Routine Stroke Cerebrovascu lar Expected: visit Accident Personal 12/30/2020 , History Expires: 12/30/2023 documented as of this encounter Results CT Head Neck Angiogram with IV Contrast (01/30/2021 3:24 PM INCLUSION SPECIAL EDUCATOR) Anatomical Region Laterality Modality Head and Neck, Neuroradiology RST LOS, N/A C omputed Tomography, Computed Neuroradiology ARZ LOS, Neuroradiology T omography FLA LOS Specimen (Source) Anatomical Collection Method Collection Time Re ceived Time Location / / Volume Laterality 01/30/2021 2:25 PM INCLUSION SPECIAL EDUCATOR Impressions 01/30/2021 3:18 PM INCLUSION SPECIAL EDUCATOR 1. 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 Slightly decreased high-grade stenosis a t the V3/4 junction with increased flow in the distal V4 segment. 2. Evolving, now chronic right cerebella r infarct. 3. 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 Narrative 01/30/2021 3:18 PM INCLUSION SPECIAL EDUCATOR EXAM: CT HEAD NECK ANGIOGRAM WITH IV [...] normal caliber bilater al MCAs, ACAs and business center representative. Patent anterior and right posterior communicating arteri [...] normal caliber bilater al MCAs, ACAs and business center representative. Patent anterior and right posterior communicating arteri [...] Angiogram with IV Contrast (12/31/2020 3:34 PM INCLUSION SPECIAL EDUCATOR) Anatomical Region Laterality Modality Head and Neck, Neuroradiology RST LOS, N/A C omputed Tomography, Computed Neuroradiology ARZ LOS, Neuroradiology T omography FLA [facility] Specimen (Source) Anatomical Collection Method Collection Time Re ceived Time Location / / Volume Laterality 12/31/2020 3:49 PM INCLUSION SPECIAL EDUCATOR Impressions 12/31/2020 4:54 PM INCLUSION SPECIAL EDUCATOR 1. Evolving right cerebellar infarct with decreased [...] oid ICA aneurysms. Narrative 12/31/2020 4:54 PM INCLUSION SPECIAL EDUCATOR EXAM: CT HEAD WITHOUT IV CONTRAST, CT [...] Findings discussed with ordering physicDr. Fazal crandall ([id number]) at 4:54 PM on 12/31/2020. Procedure Note [...] discussed with ordering physici Dr. Fazal abbasi ([id number]) at 4:54 PM on 12/31/2020. IMPRESSION: 1. [...] Head without IV Contrast (12/31/2020 3:34 PM INCLUSION SPECIAL EDUCATOR) Anatomical Region Laterality Modality Head, Neuroradiology RST LOS, N/A Computed T omography, Computed Neuroradiology ARZ LOS, Neuroradiology T omography FLA LOS Specimen (Source) Anatomical Collection Method Collection Time Re ceived Time Location / / Volume Laterality 12/31/2020 3:49 PM INCLUSION SPECIAL EDUCATOR Impressions 12/31/2020 4:54 PM INCLUSION SPECIAL EDUCATOR 1. Evolving right cerebellar infarct with decreased [...] oid ICA aneurysms. Narrative 12/31/2020 4:54 PM INCLUSION SPECIAL EDUCATOR EXAM: CT HEAD WITHOUT IV CONTRAST, CT [...] discussed with ordering physici Dr. Fazal abbasi ([id number]) at 4:54 PM on 12/31/2020. Procedure Note [...] Findings discussed with ordering Dr. Fazal ching ([phone]) at 4:54 PM on 12/31/2020. IMPRESSION: 1. [...]
--- OUTSIDE RECORDS SUMMARY | 2022-11-06 15:36 | XMS_ITS | Encounter Summary ---
:1965 Author Organization [facility] Address [address] [place] [address] Care Team Providers Name Role Phone Unavailable Primary Care Provider Unavailable Reason for Visit Reason Comments Michel Encounter Details Date Type Department Care Team Description 09/11/2020 Clinical Communication Department of Robert Diehl W8B/[facility] Neurology in .. [place], [place] [address] [place] [address] 200 [place] [address] [phone] Social History Tobacco Use Types Packs/Day Years [...]
--- OUTSIDE RECORDS SUMMARY | 2022-11-06 15:36 | XMS_ITS | Encounter Summary ---
:1965 Author Organization [facility] Address [address] [place] [address] Care Team Providers Name Role Phone Unavailable Primary Care Provider Unavailable Encounter Details Date Type Department Care Team Description 09/15/2020 Ancillary Procedure Department of Robert Diehl Aneurysm Radiology jimmy Celaya M.D. Nonruptured ([facility]) [place], [place] 200 [facility] 200 [place] [phone] Social History Tobacco Use Types Packs/Day Years [...] you attend jewish or Patient refused 2021 pentecostalism services? Do [...] nt right vertebral artery. RADHA, MCA, and supplier development manager are patent. Neck MRA: Conventional three-vessel [...] nt right vertebral artery. RADHA, MCA, and supplier development manager are patent. Neck MRA: Conventional three-vessel [...]
--- OUTSIDE RECORDS SUMMARY | 2022-11-06 15:36 | XMS_ITS | Encounter Summary ---
:1965 Author Organization [facility] Address [address] [place] [address] Care Team Providers Name Role Phone Unavailable Primary Care Provider Unavailable Reason for Visit Reason Comments Follow-up [facility] Patient Encounter Details Date Type Department Care Team Description 12/29/2020 Clinical Communication [facility] Neurology jimmy Celaya M.D. Patient) [place], [facility] [place], [place] [address] [place] [address] [place], [place] [phone] (Work) [phone] Social History Tobacco Use Types Packs/Day Years [...] her know PCP needs to prescribe meclizine. KER WIRER Telephone Encounter - Allyssa Amaya - 12/29/2020 [...] ambulance for; one of which lasted over [id number]-l-half days. She is having headaches, etc. 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
--- OUTSIDE RECORDS SUMMARY | 2022-11-06 15:36 | XMS_ITS | Encounter Summary ---
:1965 Author Organization [facility] Address [address] [place] [address] Care Team Providers Name Role Phone Unavailable [...] you attend catholic or Patient refused 2021 baptist services? Do [...] 12/18/2019 1:57 Results for this EXAM PM CHEESEMAKER procedure are i n the results section. documented in this encounter Results NOSE-Otorhinolaryngology Image Exam (12/18/2019 1:57 PM CHEESEMAKER) Specimen (Source) Anatomical Collection Method Collection Time Re ceived Time Location / / Volume Laterality 12/18/2019 1:57 PM CHEESEMAKER Narrative [facility] - 12/18/2019 1:57 PM CHEESEMAKER This order has been created and auto-finalized [...]
--- OUTSIDE RECORDS SUMMARY | 2022-11-06 15:36 | XMS_ITS | Encounter Summary ---
:[address] [facility] Address [address] [place] [address] Care Team Providers Name Role Phone Unavailable Primary Care Provider Unavailable Encounter Details Date Type Department Care Team Description 08/06/2020 Clinical Communication Department of Honorio, Otorhinolaryngology in [place], [place] [address] [place] [address] [facility] [phone] [place] [phone] Social History Tobacco Use Types Packs/Day Years [...] that she had them done at [facility]. I called the facility and [...] she had a CT Scan today in [place]. If her doctor there feels she needs [...]
--- OUTSIDE RECORDS SUMMARY | 2022-11-06 15:36 | XMS_ITS | Encounter Summary ---
:1965 Author Organization [facility] Address [address] [place] [address] Care Team Providers Name Role Phone Unavailable Primary Care Provider Unavailable Reason for Visit Reason Comments Initiate warfarin anticoagulation. Encounter Details Date Type Department Care Team Description 01/01/2021 Clinical Communication Department of Renny Mahoney warfarin Neurology in L, R.N. anticoagulation. [place], [address] [place] [address] [place] [address] [place], [place] [phone] (Work) [phone] Social History Tobacco Use Types Packs/Day Years [...] you attend christianity or Patient refused 2021 scientology services? Do [...] PM CST RADHA Thompson, calls in from [facility] with INR results = 3.9. Please call her back at [phone] OPHYSICAL ENGINEER Telephone Encounter - Renny Mahoney R.N. - 01/05/2021 1:56 PM CST Mackenzie talked to her, she needs to go to the lab today. OPHYSICAL ENGINEER Telephone Encounter - Allyssa Amaya - 01/05/2021 11:14 AM CST Patient calls in regarding this. She is wanting this set up now so a nurse can come into her home and do this. She I believed mentions that a nurse comes into her home now. She would like a call to discuss. OPHYSICAL ENGINEER Telephone Encounter - Robert Diehl M.D. - 01/01/2021 4:46 PM CST Absolutely and thank you very much for coordinating this OPHYSICAL ENGINEER Addendum Note - Renny Mahoney R.N. - 01/01/2021 1:03 PM PETROPHYSICAL ENGINEER Addended by: RENNY MAHONEY on: 01/01/2021 01:03 PM Modules accepted: Orders OPHYSICAL ENGINEER Telephone Encounter - Renny Mahoney R.N. - 01/01/2021 12:45 PM CST I spoke to the patient by telephone today to discuss reinitiating warfarin. The patient referred by Dr. Argenis Diehl ([id number]). The patient's target INR is 2.0-3.0. 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 As per Dr. Dihel, the patient is to be instructed to discontinue the 325 mg aspirin once the target INR is reached. The patient shares that she is well aware of the risks/benefits and process of taking warfarin with regular INR monitoring. She declined the need for additional education by phone regarding anticoagulation. She would like to have her INRs drawn at [facility] with results faxed to us [facility]. I spoke with her local primary care physician nurse about this as well. Once Dr. Diehl obtains imaging in about 3 months, we may consider transitioning her anticoagulation care to her local [facility]. The patient will take 5 mg warfarin nightly starting tonight 01/01/21, then have an INR drawn 01/05/21 at [facility] with results faxed to us. A prescription for warfarin 5 mg #30, take as directed, may refill X 1 was eprescribed to [facility]. The patient reported an adequate understanding of her plan of care and expressed agreement with thisplan. RECOMMENDED LEVEL OF CARE. The patient/caller is willing and able to follow the nurse's recommendation. RESPONSE TO ADVICE GIVEN. Patient/caller able to teach back. REFERENCES UTILIZED. Nursing clinical judgment utilized. Other interventions or information: Provider advice. TYPE OF PHONE CALL. Medical information, care coordination. . OPHYSICAL ENGINEER Addendum Note - Renny Mahoney R.N. - 01/01/2021 9:43 AM PETROPHYSICAL ENGINEER Addended by: RENNY MAHONEY on: 01/01/2021 09:43 AM Modules accepted: Orders OPHYSICAL ENGINEER Telephone Encounter - Renny Mahoney R.N. - 01/01/2021 9:32 AM CST I have spoken with the pharmacist at [facility] in [place]. He notes that in 2018 when thepatient previously was treated with warfarin, she was taking 5 mg nightly for a period of time. Eventually some nights she was taking 7.5 mg nightly. The pharmacist reviewed potential medication interactions with the patient's current medication list. No serious interactions anticipated. As per Dr. Yeboah ([id number]), we will initiate 5 mg nightly. She will continue aspirin until therapeutic INR is reached. OPHYSICAL ENGINEER Telephone Encounter - Renny Mahoney R.N. - 01/01/2021 8:47 AM CST The patient has been experiencing episodes of vertigo, gait instability, with a fall, she was seen in the ED of [facility] on 12/22/20. Head CT was performed [...] the patient's primary care team at the [facility]. I have discussed this with the patient who reports an ad equate understanding and agreement with this plan. RECOMMENDED LEVEL OF CARE. The patient/caller is willing and able to follow the nurse's recommendation. RESPONSE TO ADVICE GIVEN. Patient/caller able to teach back. REFERENCES UTILIZED. Nursing clinical judgment utilized. Other interventions or information: Provider advice. TYPE OF PHONE CALL. Care coordination. OPHYSICAL ENGINEER Telephone Encounter - Renny Mahoney R.N. - 01/01/2021 8:46 AM CST ----- Message from Robert Diehl M.D. sent at 12/31/2020 5:17 PM PETROPHYSICAL ENGINEER ----- I called and discussed the [...] by: Robert Diehl M.D. 12/31/20 5:16 PM PETROPHYSICAL ENGINEER Stroke Cerebrovascular Accident Personal History Plan: CT Head without IV Contrast, CT Head without IV Contrast Ataxia Plan: CT Head Neck Angiogram with IV Contrast, CT Head Neck Angiogram with IV Contrast OPHYSICAL ENGINEER documented in this encounter Plan of Treatment Scheduled Orders Name Type Priority Associated Diagnoses Order S chedule Prothrombin Time (PT) Lab Routine Conservation Policy Analyst Anticoagu lant 50 Occurrences starting Treatment 01/01/2021 unti l 01/01/2024 documented as of this encounter Visit Diagnoses Diagnosis Conservation Policy Analyst (Current) Anticoagulant Treatm ent - Primary documented in this encounter Additional Health Concerns Assessment Noted Time PHQ-9 Depression Total Score: 5 04/05/2019 8:00 AM CDT documented as of this encounter
--- OUTSIDE RECORDS SUMMARY | 2022-11-06 15:36 | XMS_ITS | Encounter Summary ---
:1965 Author Organization [facility] Address 200 [place] [address] Care Team Providers Name Role Phone Unavailable Primary Care Provider Unavailable Encounter Details Date Type Department Care Team Description 12/31/2020 Orders Only Department of Robert Diehl Stroke Cereb rovascular Accident Personal History (Primary Dx); Neurology in [place] Thrombosis Arterial (HCC) [place], [place] 200 [facility] 200 [place] [phone] [phone] Social History Tobacco Use Types Packs/Day Years [...] you attend baptist or Patient refused 2021 latter-day services? Do [...]
--- OUTSIDE RECORDS SUMMARY | 2022-11-06 15:36 | XMS_ITS | Encounter Summary ---
:1965 Author Organization [facility] Address [address] [place] [address] Care Team Providers Name Role Phone Unavailable Primary Care Provider Unavailable Encounter Details Date Type Department Care Team Description 01/07/2020 Diagnostic Division of Pulmonary Akhil Diehl M.D. [facility] in [place], [facility] [address] [place], [place] 200 [facility] [phone] [place], [place] [phone] [phone] Social History Tobacco Use Types Packs/Day Years [...] you attend moravian or Patient refused 2021 alevism services? Do [...] Organization Address City/State/ZIP Code Phon e Number [facility] documented in this encounter Visit Diagnoses Diagnosis Fatigue documented in this encounter Additional Health Concerns Assessment Noted Time PHQ-9 Depression Total Score: 5 04/05/2019 8:00 AM CDT documented as of this encounter
--- OUTSIDE RECORDS SUMMARY | 2022-11-06 15:37 | XMS_ITS | Encounter Summary ---
:1965 Author Organization [facility] Address [address] [place] [address] Care Team Providers Name Role Phone Unavailable Primary Care Provider Unavailable Reason for Visit Outpatient (Routine) - Closed Specialty Diagnoses / Procedures Referred By Contact Refer red To Contact General Surgery Diagnoses Rhinosinusitis Chronic Jey Santana M.D. [facility] [address] [place] [phone] Referral ID Status Reason Start Date Expiration Date Visits Requ ested Visits Authorized [id number] Closed 11/08/2019 11/07/2020 1 1 Encounter Details Date Type Department Care Team Description 11/29/2019 Comprehensive Visit Preoperative Jey Santana M.D. [address] [place] [phone] Preanesthetic Medical Exam (Primary Dx); Evaluation Center in Lanre Carvajal M.D. [address] [place] [phone] Rhinosinusitis Chronic [place], [place] [address] [place] [phone] Social History Tobacco Use Types Packs/Day Years [...] you attend buddhism or Patient refused 2021 congregation services? Do you belong to any clubs or No 05/17/2022 organizations such as buddhism groups, unions, [employer] or athletic groups, or school groups? How [...] Comments Blood Pressure 108/74 11/29/2019 12:45 PM ZIPPER JOINER Pulse 104 11/29/2019 12:45 PM ZIPPER JOINER Temperature 36.5 ??C (97.7 ??F) 11/29/2019 12:45 PM ZIPPER JOINER Respiratory Rate - - Oxygen Saturation 96% 11/29/2019 12:45 PM ZIPPER JOINER Inhaled Oxygen Concentration - - Weight 76.4 kg (168 lb 6.9 oz) 11/29/2019 12:45 PM ZIPPER JOINER Height 151.7 cm (4' 11.72) 11/29/2019 12:45 PM ZIPPER JOINER Body Mass Index 33.2 11/29/2019 12:45 PM ZIPPER JOINER documented in this encounter H&P Notes Lanre Carvajal M.D. - 11/29/2019 12:45 PM CST Preoperative Medical Evaluation Patient Name: Angie Mosquera Age: 54 y.o. Date of : 1965 Patient [address]: [address] [place] [phone] Primary Care Provider: No primary care provider [...] #11 Patent Foramen Ovale (HCC) Noted on [id number]/ ECHO otherwise normal. I will not pursue anything further ER JOINER documented in this encounter Plan of Treatment Not on filedocumented as of this encounter Results Creatinine with Estimated GFR - for Lab Draw (11/29/2019 11:30 AM ZIPPER JOINER) P athologist Signature Creatinine 0.98 0.59 - 11/29/2019 DTL 1.04 mg/dL 1:05 PM ZIPPER JOINER eGFR-Non 65 >=60 11/29/2019 DTL Black/ mL/min/BSA 1:05 PM ZIPPER JOINER Brazilian Comment: ----ADDITIONAL INFORMATION---- Estimated GFR calculated using the 2009 CKD_EPI creatinine equation. eGFR-Black/ 75 >=60 mL/min/BSA 2019 1:05 PM ZIPPER JOINER DTL Comment: ----ADDITIONAL INFORMATION---- Estimated GFR calculated using the 2009 CKD_EPI creatinine equation. Specimen Anatomical Collection Method Collection Time Receive d Time (Source) Location / / Volume Laterality Blood (Blood, 11/29/2019 11:30 11/29/2019 Venous) AM ZIPPER JOINER 11:50 AM ZIPPER JOINER Miranda Collado APRN, C.N.P., M.S.N. LAB BLOOD ADD-ON Performing Organization Address City/State/ZIP Code Phon e Number [facility] - [address] [place], [place] [address] [facility] [place] [address] Laboratories-[facility] [address] documented in this encounter Visit Diagnoses Diagnosis Preanesthetic Medical Exam - Primary Rhinosinusitis Chronic documented in this encounter Additional Health Concerns Assessment Noted Time PHQ-9 Depression Total Score: 5 04/05/2019 8:00 AM CDT documented as of this encounter
--- OUTSIDE RECORDS SUMMARY | 2022-11-06 15:37 | XMS_ITS | Encounter Summary ---
:1965 Author Organization [facility] Address [address] [place] [address] Care Team Providers Name Role Phone Unavailable Primary Care Provider Unavailable Reason for Visit Reason Onset Date Comments MRI from [facility] 10/02/2019 Dr. Diehl Encounter Details Date Type Department Care Team Description 10/02/2019 Clinical Communication Department of Robert Diehl MR I from [facility] in , M.D. [facility] (Dr. Bullock, 200 [facility] F[facility]) [place], [place] [address] [place] [phone] [place], [place] [phone] (Work) [phone] Social History Tobacco Use Types Packs/Day Years [...] with the radiology film room (Marlen) at [facility]. They have pushed the MRI and it should be here soon. ICAL FIELD SPECIALIST documented in this encounter Plan of Treatment Not on filedocumented as of this encounter Visit Diagnoses Not on filedocumented in this encounter Additional Health Concerns Assessment Noted Time PHQ-9 Depression Total Score: 5 04/05/2019 8:00 AM CDT documented as of this encounter
--- OUTSIDE RECORDS SUMMARY | 2022-11-06 15:37 | XMS_ITS | Encounter Summary ---
:1965 Author Organization [facility] Address [address] [place] [address] Care Team Providers Name Role Phone Unavailable [...] you attend orthodoxy or Patient refused 2021 temple services? Do [...] 11/29/2019 3:10 Results for this EXAM PM HANDLE BAR ASSEMBLER procedure are i n the results section. documented in this encounter Results NOSE-Otorhinolaryngology Image Exam (11/29/2019 3:10 PM HANDLE BAR ASSEMBLER) Specimen (Source) Anatomical Collection Method Collection Time Re ceived Time Location / / Volume Laterality 11/29/2019 3:08 PM HANDLE BAR ASSEMBLER Narrative [facility] - 11/29/2019 3:58 PM HANDLE BAR ASSEMBLER This order has been created and auto-finalized [...]
--- OUTSIDE RECORDS SUMMARY | 2022-11-06 15:37 | XMS_ITS | Encounter Summary ---
:1965 Author Organization [facility] Address [address] [place] [address] Care Team Providers Name Role Phone Unavailable Primary Care Provider Unavailable Encounter Details Date Type Department Care Team Description 09/03/2019 Documentation Department of Neurology in Robert Fontanez M.D. [place], [place] 200 [facility] 200 [place] [phone] (Wo rk) Social History Tobacco Use Types [...]
--- OUTSIDE RECORDS SUMMARY | 2022-11-06 15:37 | XMS_ITS | Encounter Summary ---
:1965 Author Organization [facility] Address [address] [place] [address] Care Team Providers Name Role Phone Unavailable Primary Care Provider Unavailable Reason for Visit Reason Onset Date Comments wants to have MRI done closer to home before appt 09/03/2019 [facility] Encounter Details Date Type Department Care Team Description 09/03/2019 Clinical Communication Department of Robert Diehl nts to have MRI Neurology in [place], [place] done closer to home [place], [address] [facility] before appt [place], [place] ([facility]) [address] [facility] [phone] [place], [place] [phone] (Work) [phone] Social History Tobacco Use Types Packs/Day Years [...] you attend temple or Patient refused 2021 evangelical services? Do [...] for MRA faxed to Dr. Blackwell at [facility] at fax [phone]. Called the patient and left a message [...] like to have her MRI done at [facility]'s before her appointment with Dr. Diehl on 09/19. Or if she could get her MRI scheduled for the same day as she is here for her appointment. She doesn't want to drive 2 days in a row. She wanted the order sent to Dr. Blackwell so I guess just send notes to Dr. Clemente Blackwell at [facility] Phone- [phone] documented in this encounter Plan of Treatment Not on filedocumented as of this encounter Visit Diagnoses Not on filedocumented in this encounter Additional Health Concerns Assessment Noted Time PHQ-9 Depression Total Score: 5 04/05/2019 8:00 AM CDT documented as of this encounter
--- OUTSIDE RECORDS SUMMARY | 2022-11-06 15:37 | XMS_ITS | Encounter Summary ---
:1965 Author Organization [facility] Address [address] [place] [address] Care Team Providers Name Role Phone Unavailable Primary Care Provider Unavailable Encounter Details Date Type Department Care Team Description 11/29/2019 Hospital Encounter Department of Jey Santana, Rhinosi nusitis Chronic; Laboratory Medicine M.D. Preanesthetic Medical Exam and Pathology, [address] [place] [address] in [place] [phone] [place] [phone] [place] [address] (Work) [place], [place] [phone] (Fax) [phone] Social History Tobacco Use Types Packs/Day Years [...] you attend catholic or Patient refused 2021 alevism services? [...] R esults for this DIFFERENTIAL, B AM DENTIST PRIVATE PRACTICE procedure ar e in the results section. CREATININE WITH Routine 11/29/2019 11:30 Preanesthetic Medical Results for this EGFR, S/P AM DENTIST PRIVATE PRACTICE Exam procedure are i n the results section. documented in this encounter Results Creatinine with Estimated GFR - for Lab Draw (11/29/2019 11:30 AM DENTIST PRIVATE PRACTICE) P athologist Signature Creatinine 0.98 0.59 - 11/29/2019 DTL 1.04 mg/dL 1:05 PM DENTIST PRIVATE PRACTICE eGFR-Non 65 >=60 11/29/2019 DTL Black/ mL/min/BSA 1:05 PM DENTIST PRIVATE PRACTICE Russian Comment: ----ADDITIONAL INFORMATION---- Estimated GFR calculated using the 2009 CKD_EPI creatinine equation. eGFR-Black/ 75 >=60 mL/min/BSA 2019 1:05 PM DENTIST PRIVATE PRACTICE DTL Comment: ----ADDITIONAL INFORMATION---- Estimated GFR calculated using the 2009 CKD_EPI creatinine equation. Specimen Anatomical Collection Method Collection Time Receive d Time (Source) Location / / Volume Laterality Blood (Blood, 11/29/2019 11:30 11/29/2019 Venous) AM DENTIST PRIVATE PRACTICE 11:50 AM DENTIST PRIVATE PRACTICE Miranda Collado APRN C.N.P., M.S.N. LAB BLOOD ADD-ON Performing Organization Address City/State/ZIP Code Phon e Number [facility] - [address] [place] [phone] [facility] [place] [address] Laboratories-[facility] 200 [facility] (ABNORMAL) CBC without Differential (11/29/2019 11:30 AM DENTIST PRIVATE PRACTICE) Patholo gist Method Time Signature Hemoglobin 13.3 11.6 - 11/29/2019 DTL 15.0 g/dL 12:09 PM DENTIST PRIVATE PRACTICE Hematocrit 40.6 35.5 - 11/29/2019 DTL 44.9 % 12:09 PM DENTIST PRIVATE PRACTICE Erythrocytes 4.08 3.92 - 11/29/2019 DTL 5.13 12:09 PM DENTIST PRIVATE PRACTICE x10(12)/L MCV 99.5 (H) 78.2 - 11/29/2019 DTL 97.9 fL 12:09 PM DENTIST PRIVATE PRACTICE RBC Distrib Width 13.3 12.2 - 11/29/2019 DTL 16.1 % 12:09 PM DENTIST PRIVATE PRACTICE Platelet Count 234 157 - 371 11/29/2019 DTL x10(9)/L 12:09 PM DENTIST PRIVATE PRACTICE Leukocytes 5.8 3.4 - 9.6 11/29/2019 DTL x10(9)/L 12:09 PM DENTIST PRIVATE PRACTICE Specimen Anatomical Collection Method Collection Time Receive d Time (Source) Location / / Volume Laterality Blood (Blood, 11/29/2019 11:30 11/29/2019 Venous) AM DENTIST PRIVATE PRACTICE 11:50 AM DENTIST PRIVATE PRACTICE Jey Santana M.D. LAB BLOOD ADD-ON Performing Organization Address City/State/ZIP Code Phon e Number [facility] - [address] [place], [place] [address] [facility] [place] [address] Laboratories-[facility] 200 [address] [facility] documented in this encounter Visit Diagnoses Diagnosis Rhinosinusitis Chronic Preanesthetic Medical Exam documented in this encounter Additional Health Concerns Assessment Noted Time PHQ-9 Depression Total Score: 5 04/05/2019 8:00 AM CDT documented as of this encounter
--- OUTSIDE RECORDS SUMMARY | 2022-11-06 15:37 | XMS_ITS | Encounter Summary ---
:1965 Author Organization [facility] Address [address] [place] [address] Care Team Providers Name Role Phone Unavailable Primary Care Provider Unavailable Reason for Visit Reason Onset Date Comments Nicotine Dependence 09/04/2019 Encounter Details Date Type Department Care Team Description 09/04/2019 Clinical Department of Gagan Christensen Communication Nicotine Kenna D, Dependence, Jordy Alex, C.T.T.S. [facility], in [place], [place] [address] [place] [address] Social History Tobacco Use Types Packs/Day Years [...] you attend yarsanism or Patient refused 2021 faith services? Do [...]
--- OUTSIDE RECORDS SUMMARY | 2022-11-06 15:37 | XMS_ITS | Encounter Summary ---
:1965 Author Organization [facility] Address [address] [place] [address] Care Team Providers Name Role Phone Unavailable Primary Care Provider Unavailable Reason for Referral Outpatient (Routine) - Closed Specialty Diagnoses / Procedures Referred By Contact Refer red To Contact Neurology Robert Diehl M. D. [facility] [address] [place] [phone] Referral ID Status Reason Start Date Expiration Date Visits Requ ested Visits Authorized [id number] Closed 06/28/2019 06/27/2020 1 1 Reason for Visit Outpatient (Routine) - Closed Specialty Diagnoses / Procedures Referred By Contact Refer red To Contact Neurology Diagnoses Stroke (HCC) Thrombosis Arterial (HCC) Aneurysm Cerebral Unruptured (HCC) Fernie Soriano M.D. [facility] [address] [place] [phone] Referral ID Status Reason Start Date Expiration Date Visits Requ ested Visits Authorized [id number] Closed 03/31/2019 03/30/2020 1 1 Encounter Details Date Type Department Care Team Description 06/28/2019 Office Visit Department of oRbert Diehl Fatigue ( Primary Dx); Neurology in [place] Stroke (HCC); [place], [place] 200 [facility] Thrombosis Arterial (HCC); 200 [place], [place] Aneurysm Cerebral Unruptured ([place]CC) [place] [address] [phone] Social History Tobacco Use Types Packs/Day Years [...] you attend bahai or Patient refused 2021 lutheran services? Do [...] Fatigue PUL Home Overnight Oximetry 2. Stroke ([facility]) Neurology - Cerebrovascular consult (clinic) MR Neck Angiogram without and with IV Contrast PM Device interrogation (clinic) 3. Thrombosis Arterial ([facility]) Neurology - Cerebrovascular consult (clinic) MR Neck Angiogram without and with IV Contrast PM Device interrogation (clinic) 4. Aneurysm Cerebral Unruptured ([facility]) Neurology - Cerebrovascular consult (clinic) documented in this encounter Plan of Treatment Scheduled Orders Name Type Priority Associated Diagnoses [facility] Overnight PFT Routine Fatigue Expected: 06/28/2019 Oximetry (Approximate), Expires: 06/28/2022 Scheduled Referrals Name Type Priority Associated Diagnoses Order [facility] Outpatient Referral Routine [...]
--- OUTSIDE RECORDS SUMMARY | 2022-11-06 15:37 | XMS_ITS | Encounter Summary ---
:1965 Author Organization [facility] Address [address] [place] [address] Care Team Providers Name Role Phone Unavailable Primary Care Provider Unavailable Reason for Visit Reason Onset Date Comments Telephone call 04/24/2019 [place] Encounter Details Date Type Department Care Team Description 04/24/2019 Clinical Communication Department of Blanca, Tele phone call Neurology in Nan Bose M.D. (Blanca) [place], [facility] [place], [place] [address] [place] [phone] [place], [place] [phone] (Work) [phone] Social History Tobacco Use Types Packs/Day Years [...] The patient contacted Dr. Henry's office at [facility] for a PFO closure. Depending on your answer would decide if the patient was a candidate for PFO closure. They read your 04/04/18 hospital summary in [facility], but the answer is unclear. Their fax is [phone]. thanks documented in this encounter Plan of Treatment Not on filedocumented as of this encounter Visit Diagnoses Not on filedocumented in this encounter Additional Health Concerns Assessment Noted Time PHQ-9 Depression Total Score: 5 04/05/2019 8:00 AM CDT documented as of this encounter
--- OUTSIDE RECORDS SUMMARY | 2022-11-06 15:37 | XMS_ITS | Encounter Summary ---
:1965 Author Organization [facility] Address [address] [place] [address] Care Team Providers Name Role Phone Unavailable Primary Care Provider Unavailable Reason for Visit Reason Onset Date Comments Nicotine Dependence 08/30/2019 Encounter Details Date Type Department Care Team Description 08/30/2019 Clinical Department of Gagan Christensen Communication Nicotine Kenna D, Dependence, Jordy Alex, C.T.T.S. [facility], in [place], [place] [address] [place] [address] Social History Tobacco Use Types Packs/Day Years [...] you attend yarsanism or Patient refused 2021 gnosticism services? Do [...]
--- OUTSIDE RECORDS SUMMARY | 2022-11-06 15:37 | XMS_ITS | Encounter Summary ---
:1965 Author Organization [facility] Address [address] [place] [address] Care Team Providers Name Role Phone Unavailable Primary Care Provider Unavailable Encounter Details Date Type Department Care Team Description 06/28/2019 Hospital Encounter Department of Fernie Soriano Stroke ([facility]); Radiology, Jordy Alvarado M.D. Thrombosis Arterial ([facility]); Building, in [address] [place] [address] Aneurysm Cerebral Unruptured ([facility]) [place], [place] [address] [place] [address] [place], [place] [phone] (Work) [phone] Social History Tobacco Use Types Packs/Day Years [...] you attend hindu or Patient refused 2021 yazidi services? Do [...] Neuroradiology N/A Computed Tomography ARZ LOS, Neuroradiology [facility] Specimen (Source) Anatomical Collection Method Collection [...] the ventral aspect (series 6 image s [id number]). The lumen remains significantly irregular and there [...] well seen. The RADHA, MCA, a nd METAL ROOFER branches are unremarkable in appearance. Stable postoperative [...] the ventral aspect (series 6 image s [id number]). The lumen remains significantly irregular and there [...] well seen. The RADHA, MCA, a nd METAL ROOFER branches are unremarkable in appearance. Stable postoperative [...]
--- OUTSIDE RECORDS SUMMARY | 2022-11-06 15:37 | XMS_ITS | Encounter Summary ---
:1965 Author Organization [facility] Address [address] [place] [address] Care Team Providers Name Role Phone Unavailable Primary Care Provider Unavailable Reason for Visit Reason Onset Date Comments Nicotine Dependence 04/26/2019 Encounter Details Date Type Department Care Team Description 04/26/2019 Clinical Department of Gagan Christensen Communication Nicotine Kenna D, Dependence, Jordy Alex, C.T.T.S. [facility], in [place], [place] [address] [place] [address] Social History Tobacco Use Types Packs/Day Years [...]
--- OUTSIDE RECORDS SUMMARY | 2022-11-06 15:37 | XMS_ITS | Encounter Summary ---
:1965 Author Organization [facility] Address [address] [place] [address] Care Team Providers Name Role Phone Unavailable Primary Care Provider Unavailable Encounter Details Date Type Department Care Team Description 12/06/2019 Clinical Communication Department of Robert Diehl, Neurology in .. [place], [place] 200 [facility] 200 [place] [phone] [phone] Social History Tobacco Use Types Packs/Day Years [...] you attend denominational or Patient refused 2021 faith services? Do [...] during her next visit. Janis Preston R.N. MS ADJUDICATOR Telephone Encounter - Janis Preston R.N. - 12/06/2019 1:35 PM CST ----- Message from Robert Diehl M.D. sent at 12/03/2019 10:17 AM CLAIMS ADJUDICATOR ----- Regarding: FW: Overnight oximetry Good morning Would you be able to reach out and let this patient know the oximetry was unsuccessful and would need to be repeated and ask if they would like to do this? Thank you! Electronically signed by: Robert Diehl M.D. 12/03/19 10:18 AM CLAIMS ADJUDICATOR ----- Message ----- From: Carolynn Stokes Sent: 11/29/2019 2:39 PM CLAIMS ADJUDICATOR To: Robert Diehl M.D. Subject: Overnight oximetry Your patients overnight oximetry test did not have recorded data of sufficient duration for an interpretation to be completed and was returned four months after appointment. Therefore an overnight oximetry report will not be generated to [facility]. Please contact your clinical electrical assistant to reschedule an overnight oximetry test if you wish the patient to repeat an overnight oximetry test. MS ADJUDICATOR documented in this encounter Plan of Treatment [...] Organization Address City/State/ZIP Code Phon e Number [facility] documented in this encounter Visit Diagnoses Diagnosis Fatigue - Primary Fatigue documented in this encounter Additional Health Concerns Assessment Noted Time PHQ-9 Depression Total Score: 5 04/05/2019 8:00 AM CDT documented as of this encounter
--- OUTSIDE RECORDS SUMMARY | 2022-11-06 15:37 | XMS_ITS | Encounter Summary ---
:1965 Author Organization [facility] Address [address] [place] [address] Care Team Providers Name Role Phone Unavailable Primary Care Provider Unavailable Reason for Visit Reason Onset Date Comments Schedule Surgery 10/05/2019 Encounter Details Date Type Department Care Team Description 10/05/2019 Clinical Department of Finney, Schedule Surge ry Communication [place]ology [place], [place] 200 [facility] [address] [place] [phone] [place] [address] Social History Tobacco Use Types Packs/Day Years [...] Kaykay Murphy R.N. - 10/17/2019 8:10 AM WATCH REPAIR PERSON Pt has return appt with EKO on 10/23 H REPAIR PERSON Telephone Encounter - Alana Engel L.P.N. - 10/09/2019 2:49 PM CST Note sent to DR. Olmedo and patient's Neurology team to discuss clearance for surgery. Desk is scheduling a return for the patient ot discuss surgery. H REPAIR PERSON Telephone Encounter - Alana Engel L.P.N. - [...] following references were used: provider Dr. Olmedo H REPAIR PERSON Telephone Encounter - Zoey Lipscomb - 10/05/2019 [...] surgical date. She can be reached at [phone]. H REPAIR PERSON documented in this encounter Plan of Treatment Not on filedocumented as of this encounter Visit Diagnoses Not on filedocumented in this encounter Additional Health Concerns Assessment Noted Time PHQ-9 Depression Total Score: 5 04/05/2019 8:00 AM CDT documented as of this encounter
--- OUTSIDE RECORDS SUMMARY | 2022-11-06 15:37 | XMS_ITS | Encounter Summary ---
:1965 Author Organization [facility] Address [address] [place] [address] Care Team Providers Name Role Phone Unavailable Primary Care Provider Unavailable Reason for Referral Outpatient (Routine) - Closed Specialty Diagnoses / Procedures Referred By Contact Refer red To Contact General Surgery Diagnoses Rhinosinusitis Chronic John Gomez M.D. [address] [address] Referral ID Status Reason Start Date Expiration Date Visits Requ ested Visits Authorized [id number] Closed 11/08/2019 11/07/2020 1 1 utpatient (Routine) - Closed Specialty Diagnoses / Procedures Referred By Contact Refer red To Contact Otorhinolaryngology John Gomez M.D. [address] [address] Referral ID Status Reason Start Date Expiration Date Visits Requ ested Visits Authorized [id number] Closed 11/08/2019 11/07/2020 1 1 Scheduling Instructions EKO listing visit and NESHA 11/29/2019 ITECTURAL WOOD MODEL MAKER Reason for Visit Reason Onset Date Comments reschedule surgery 11/07/2019 Patient was a no sydni w for surgery with Dr. Olmedo on 11/05/19. Encounter Details Date Type Department Care Team Description 11/07/2019 Clinical Department of shawna Olmedo Communication Otorhinolaryngology in [place] surg silva (Patient [place] Carole.Juice. was a no show for [address] [place]. GAST[place], [place] [id number] SHAHANA [place] on [phone] [place], 11/05/19.) [place] [address] Social History Tobacco Use Types Packs/Day Years [...] Tanvi White R.N. - 11/09/2019 10:02 AM ARCHITECTURAL WOOD MODEL MAKER Patient called to let her know of the preoperative appointments and listing appointment with Dr. [place] Olmedo. She was also informed that she does not have to stop the aspirin 81 mg for surgery. She verbalized understanding regarding the use of aspirin and was appreciative of the call. ITECTURAL WOOD MODEL MAKER Telephone Encounter - John Gomez M.D. - 11/08/2019 5:00 PM CST Kosta Wu, I placed the NESHA, listing visit, and created the listing. She can stay on her 81 ASA. Thank you. ITECTURAL WOOD MODEL MAKER Addendum Note - John Gomez M.D. - 11/08/2019 4:59 PM ARCHITECTURAL WOOD MODEL MAKER Addended by: JOHN GOMEZ on: 11/08/2019 04:59 PM Modules accepted: Orders ITECTURAL WOOD MODEL MAKER Telephone Encounter - Tanvi White R.N. - 11/08/2019 10:59 AM ARCHITECTURAL WOOD MODEL MAKER SUBJECTIVE CHIEF COMPLAINT / REASON FOR CALL [...] the surgical date. She will require a refrigerated national truck driver and that plan will work better for her. Disposition/Recommendation: Patient is aware that she will need to call in the night before surgeryfor a report time to [facility]. Information/Education: patient/caller able to teach back Caller agreeable to plan of care: yes The following references were used: nursing clinical judgement ITECTURAL WOOD MODEL MAKER Telephone Encounter - Darlin Olmedo M.D. - 11/08/2019 10:16 AM CST Any of those days are fine. I should see her for a listing visit and NESHA. thanks ITECTURAL WOOD MODEL MAKER Telephone Encounter - Tanvi White R.N. - 11/07/2019 1:34 PM ARCHITECTURAL WOOD MODEL MAKER SUBJECTIVE CHIEF COMPLAINT / REASON FOR CALL [...] following references were used: nursing clinical judgement ITECTURAL WOOD MODEL MAKER documented in this encounter Plan of Treatment Scheduled Referrals Name Type Priority Associated Diagnoses Order S chedule Otorhinolaryngology office Outpatient Routine E xpected: visit (clinic) Referral 11/29/2019, Expires: 11/08/2022 Preoperative Evaluation Outpatient Routine Rhinosinusitis Ex pected: NESHA consult (clinic) Referral Chronic 020 (Approximate), Expires: 11/08/2022 documented as of this encounter Results (ABNORMAL) CBC without Differential (11/29/2019 11:30 AM ARCHITECTURAL WOOD MODEL MAKER) [facility] gist Method Time Signature Hemoglobin 13.3 11.6 - 11/29/2019 DTL 15.0 g/dL 12:09 PM ARCHITECTURAL WOOD MODEL MAKER Hematocrit 40.6 35.5 - 11/29/2019 DTL 44.9 % 12:09 PM ARCHITECTURAL WOOD MODEL MAKER Erythrocytes 4.08 3.92 - 11/29/2019 DTL 5.13 12:09 PM ARCHITECTURAL WOOD MODEL MAKER x10(12)/L MCV 99.5 (H) 78.2 - 11/29/2019 DTL 97.9 fL 12:09 PM ARCHITECTURAL WOOD MODEL MAKER RBC Distrib Width 13.3 12.2 - 11/29/2019 DTL 16.1 % 12:09 PM ARCHITECTURAL WOOD MODEL MAKER Platelet Count 234 157 - 371 11/29/2019 DTL x10(9)/L 12:09 PM ARCHITECTURAL WOOD MODEL MAKER Leukocytes 5.8 3.4 - 9.6 11/29/2019 DTL x10(9)/L 12:09 PM ARCHITECTURAL WOOD MODEL MAKER Specimen Anatomical Collection Method Collection Time Receive d Time (Source) Location / / Volume Laterality Blood (Blood, 11/29/2019 11:30 11/29/2019 Venous) AM ARCHITECTURAL WOOD MODEL MAKER 11:50 AM ARCHITECTURAL WOOD MODEL MAKER John Gomez M.D. LAB BLOOD ADD-ON Performing Organization Address City/State/ZIP Code Phon e Number [facility] - [address] [place], [place] [address] [facility] [place] [address] [facility] [address] documented in this encounter Visit Diagnoses Diagnosis Rhinosinusitis Chronic - Primary documented in this encounter Additional Health Concerns Assessment Noted Time PHQ-9 Depression Total Score: 5 04/05/2019 8:00 AM CDT documented as of this encounter
--- OUTSIDE RECORDS SUMMARY | 2022-11-06 15:37 | XMS_ITS | Encounter Summary ---
:1965 Author Organization [facility] Address [address] [place] [address] Care Team Providers Name Role Phone Unavailable Primary Care Provider Unavailable Encounter Details Date Type Department Care Team Description 10/02/2019 Orders Only Department of Robert Diehl Thrombosi s Arterial Neurology in [place] ([facility]) (Primary Dx) [place], [place] 200 [facility] 200 [place] [phone] Social History Tobacco Use Types Packs/Day Years [...] you attend adventist or Patient refused 2021 cheondoism services? Do [...] of Outside MR Neck (10/02/2019 1:01 PM FINISHED CARPET INSPECTOR) Anatomical Region Laterality Modality Neuroradiology RST LOS, Neuroradiology ARZ LOS, N/A Magnetic Resonance Neuroradiology FLA LOS, Neck Specimen (Source) Anatomical Collection Method Collection Time Re ceived Time Location / / Volume Laterality 10/02/2019 1:03 PM FINISHED CARPET INSPECTOR Impressions 10/02/2019 1:18 PM FINISHED CARPET INSPECTOR Similar appearance of the distal right vertebral artery irregularity and mild narrowing at C1, r elated to the nonocclusive luminal thrombus, as seen on the prior CTA exams . MRA neck otherwise negative and unchanged. Narrative 10/02/2019 1:18 PM FINISHED CARPET INSPECTOR EXAM: ??INTERPRETATION OF OUTSIDE MR NECK COMPARISON: [...]
--- OUTSIDE RECORDS SUMMARY | 2022-11-06 15:37 | XMS_ITS | Encounter Summary ---
:1965 Author Organization [facility] Address [address] [place] [address] Care Team Providers Name Role Phone Unavailable Primary Care Provider Unavailable Encounter Details Date Type Department Care Team Description 10/09/2019 Orders Only Department of Otorhinolaryngology Alana Engel, in [facility] L.P.N. 200 [facility] 200 [place] [address] [place], [place] [phone] Social History Tobacco Use Types Packs/Day Years [...] you attend denominational or Patient refused 2021 rastafarian services? Do [...]
--- OUTSIDE RECORDS SUMMARY | 2022-11-06 15:37 | XMS_ITS | Encounter Summary ---
:1965 Author Organization [facility] Address [address] [place] [address] Care Team Providers Name Role Phone Unavailable Primary Care Provider Unavailable Reason for Visit Reason Onset Date Comments Patient wants letter and notes sent to physician in 10/03/[address] Robert Diehl [facility] Encounter Details Date Type Department Care Team Description 10/03/2019 Clinical Communication Department of Robert Diehl Neurology in [place], [place] letter and notes [address] sent to physician [place], [place] in [facility] ( [address] [place] [address] Robert Diehl) [place], [place] [phone] [address] (Work) [phone] Social History Tobacco Use Types Packs/Day Years [...] you attend alevism or Patient refused 2021 shinto services? Do [...] 3:55 PM CST As per documentation in [facility] on 09/04, a letter has been sent to Dr. Blackwell with the patient's notes from her most recent visit. ING ANALYST documented in this encounter Plan of Treatment Not on filedocumented as of this encounter Visit Diagnoses Not on filedocumented in this encounter Additional Health Concerns Assessment Noted Time PHQ-9 Depression Total Score: 5 04/05/2019 8:00 AM CDT documented as of this encounter
--- OUTSIDE RECORDS SUMMARY | 2022-11-06 15:37 | XMS_ITS | Encounter Summary ---
:1965 Author Organization [facility] Address [address] [place] [address] Care Team Providers Name Role Phone Unavailable Primary Care Provider Unavailable Encounter Details Date Type Department Care Team Description 10/03/2019 Clinical Communication Department of Robert Diehl, Neurology in .[place], [place] 200 [facility] 200 [place] [address] [phone] Social History Tobacco Use Types Packs/Day Years [...] Coby this is for you, records request TURE REPAIRER Telephone Encounter - Janis Preston R.N. - 10/03/2019 3:11 PM CST Called patient back with update about aspirin per Dr. Diehl. Patient voiced understanding that she will stop the warfarin and continue baby aspirin. She wants notes about her visit sent to her [place]. Janis Preston R.N. TURE REPAIRER Telephone Encounter - Janis Preston R.N. - [...] dose and warfarin discontinuation. Janis Preston R.N. TURE REPAIRER documented in this encounter Plan of Treatment Not on filedocumented as of this encounter Visit Diagnoses Not on filedocumented in this encounter Additional Health Concerns Assessment Noted Time PHQ-9 Depression Total Score: 5 04/05/2019 8:00 AM CDT documented as of this encounter
--- OUTSIDE RECORDS SUMMARY | 2022-11-06 15:37 | XMS_ITS | Encounter Summary ---
:1965 Author Organization [facility] Address [address] [place] [address] Care Team Providers Name Role Phone Unavailable Primary Care Provider Unavailable Encounter Details Date Type Department Care Team Description 12/07/2019 Hospital Encounter RST ROMRadha MORAN OR Darlin Olmedo, [address] [facility] [place] [address] [address] [place] [address] [place] [address] Social History Tobacco Use Types [...] you attend methodist or Patient refused 2021 sabianism services? Do [...] Comments Blood Pressure 114/72 12/07/2019 3:30 PM METAL FINISH INSPECTOR Pulse 75 12/07/2019 4:25 PM METAL FINISH INSPECTOR Temperature 36.5 ??C (97.7 ??F) 12/07/2019 2:32 PM METAL FINISH INSPECTOR Respiratory Rate 15 12/07/2019 4:25 PM METAL FINISH INSPECTOR Oxygen Saturation 94% 12/07/2019 4:25 PM METAL FINISH INSPECTOR Inhaled Oxygen Concentration - - Weight - [...] saline sinus rinse kit (suchas NerhodaMed or Clearfield). - Follow the directions on the bottle [...] our clinic or with another department at [facility], an appointment willbe made for you. If you have not received specific details (date, time, location) within 2 weeks of discharge, please contact our office at [phone] to inquire. If you are to follow up somewhere other than [facility], please schedule this appointment (in the timeframe recommended by your surgeon)at your earliest convenience. CONTACT INFORMATION: If you need to reach the Department of ENT at the [facility] regarding any questions during normal business hours, please call . If you are calling after normal business hours and have a concern that needs to be addressed urgently, please call the [facility] Websphere Commerce Developer at and ask to speak to the ENT resident emergency communications dispatcher. L FINISH INSPECTOR AttachmentsThe following attachments cannot be sent through Care Everywhere.Your Scopolamine Patch (Amharic)documented in this encounter Medications at Time of [...] Extradural computer navigation was registered according to sow manager's guidelines and confirmed to be accurate [...] 5 mL Implants None Darlin Olmedo M.D. L FINISH INSPECTOR Brief Op Note - Jey Santana M.D. [...] Loss None Implants None Jey Santana M.D. 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 Case Notes WAITER 10:37 documented in this encounter Visit Diagnoses Not on filedocumented in this encounter Administered Medications Inactive Administered Medications - up to 3 most recent administrations Medication Order MAR Action Action Date Dose Rate Site acetaminophen injection 1,000 New Bag 12/07/2019 2:38 PM 1,000 mg 400 mL/hr mg (OFIRMEV) METAL FINISH INSPECTOR 1,000 mg, intravenous, at 400 mL/hr, Administer [...] 1,000 mg (TYLENOL) Given 12/07/2019 12:06 PM METAL FINISH INSPECTOR 1,000 mg 1,000 mg, oral, Once, On Tue12/07/19 at 1200, For 1 dose, Pre-Op aprepitant capsule 40 mg (EMEND) Given 12/07/2019 12:06 PM METAL FINISH INSPECTOR 40 mg 40 mg, oral, Once as needed, prevent ponv, Starting on Tue12/07/19 at 1145, For 1 dose, Pre-Op caffeine tablet 200 mg Given 12/07/2019 12:06 PM METAL FINISH INSPECTOR 200 mg 200 mg, oral, Once as needed, pre-op to prevent caffeine withdrawal headache or to enhance emergence from anesthesia/sedation, Starting on Tue12/07/19 at 1145, For 1 dose, Pre-Op, With sips droperidol injection 0.625 mg (INAPSINE) Given 12/07/2019 2:37 PM METAL FINISH INSPECTOR 0.625 mg 0.625 mg, intravenous, Every 6 [...] 25 mcg (SUBLIMAZE) Given 12/07/2019 2:32 PM METAL FINISH INSPECTOR 25 mcg 25 mcg, intravenous, Every 2 min PRN, For pain 4 or greater (maximum 100 mcg). If max dose of Fentanyl is reached and if pain is greater than 4, discontinue Fentanyl: give Hydromorphone, Starting on Tue12/07/19 at 1145, Pre-Op ketamine injection 10 mg (KETALAR) Given 12/07/2019 2:37 PM METAL FINISH INSPECTOR 10 mg 10 mg, intravenous, Once as needed, Pain sedation mismatch AND RASS score less than -1, Starting on Tue12/07/19 at 1430, For 1 dose, PACU (only) lactated ringers New Bag 12/07/2019 3:48 PM METAL FINISH INSPECTOR 20 mL/hr 20 mL/hr 20 mL/hr, intravenous, Continuous, Starting on Tue12/07/19 at 1400, PACU & Post-Op Continued from OR 12/07/2019 2:25 PM METAL FINISH INSPECTOR 20 mL/hr 20 mL/hr metoprolol tablet 12.5 [...] 2 mg (VERSED) Given 12/07/2019 12:28 PM METAL FINISH INSPECTOR 2 mg 2 mg, intravenous, Once as needed, anxiety, sedation, Starting on Tue12/07/19 at 1145, For 1 dose, Pre-Op ondansetron ODT disintegrating tablet 4 mg Given 12/07/2019 12:0 7 PM METAL FINISH INSPECTOR 4 mg (ZOFRAN-ODT) 4 mg, sublingual, Once, On Tue12/07/19 at 1200, For 1 dose, Pre-Op, When splitting ODT at bedside, handle with gloves and a pill splitter to prevent moisture contact. scopolamine base 1 mg Medication Applied 12/07/2019 12:11 PM 1 patch Behind Right over 3 days 1 patch METAL FINISH INSPECTOR Ear (TRANSDERM SCOP) 1 patch, transdermal, Administer [...] Recently Administered Medications Times are shown in METAL FINISH INSPECTOR. Scheduled Medication Order 12/05/2019 12/06/2019 12/07/2019 acetaminophen [...] (COMPLETED) 1251 (Given - Provider: Gini Garcia, GASOLINE PLANT OPERATOR, SALES SUPERVISOR) 1,250 mg (rounded from 1,146 mg = [...] (CANCELED) 1310 (Given - Provider: Darlin K Kidder, M.D. - Comment: Soaked on cottonoids and [...] mg (VERSED) (COMPLETED) 1228 (Given - Provider: tSeph Gallo R.N.) 2 mg, intravenous, Once as [...] 1211 (Medication Applied - Provider: Steph Gallo R.N.)1345 (Due: Medication Removed - Provider: Discharge Provider, [...]
--- OUTSIDE RECORDS SUMMARY | 2022-11-06 15:37 | XMS_ITS | Encounter Summary ---
:1965 Author Organization [facility] Address [address] [place] [id number] Care Team Providers Name Role Phone Unavailable Primary Care Provider Unavailable Reason for Visit Outpatient (Routine) - Closed Specialty Diagnoses / Procedures Referred By Contact Refer red To Contact Neurology Robert Diehl M. D. [facility] [address] [place] [phone] Referral ID Status Reason Start Date Expiration Date Visits Requ ested Visits Authorized [id number] Closed 06/28/2019 06/27/2020 1 1 Encounter Details Date Type Department Care Team Description 10/02/2019 Office Visit Department of Robert Diehl, Stroke (H CC) (Primary Dx); Neurology in [facility] Thrombosis Arterial (HCC) [place], [place] [address] [place] [address] [place] [phone] Social History Tobacco Use Types Packs/Day Years [...] you attend episcopal or Patient refused 2021 buddhism services? Do you belong to any clubs or No 05/17/2022 organizations such as episcopal groups, unions, [employer] or athletic groups, or school groups? How [...] of a magnetic resonance angiogram completed at [facility]. Unfortunately we do not have the images [...] 1. Stroke (HCC) 2. Thrombosis Arterial (HCC) AT SYSTEMS OFFICER documented in this encounter Plan of Treatment Not on filedocumented as of this encounter Visit Diagnoses Diagnosis Stroke (HCC) - Primary Thrombosis Arterial (HCC) documented in this encounter Additional Health Concerns Assessment Noted Time PHQ-9 Depression Total Score: 5 04/05/2019 8:00 AM CDT documented as of this encounter
--- OUTSIDE RECORDS SUMMARY | 2022-11-06 15:37 | XMS_ITS | Encounter Summary ---
:1965 Author Organization [facility] Address [address] [place] [address] Care Team Providers Name Role Phone Unavailable Primary Care Provider Unavailable Reason for Visit Outpatient (Routine) - Closed Specialty Diagnoses / Procedures Referred By Contact Refer red To Contact Otorhinolaryngology Jey Santana M.D. [facility] [address] [place] [phone] Referral ID Status Reason Start Date Expiration Date Visits Requ ested Visits Authorized [id number] Closed 11/08/2019 11/07/2020 1 1 Encounter Details Date Type Department Care Team Description 11/29/2019 Office Visit Department of Darlin Omledo Mucocele Nasa l Sinus Otorhinolaryngology jimmy Brumfield M.D. (Primary Dx) [place], [place] [address] [place] [address] [place] [phone] Social History Tobacco Use Types [...] you attend episcopalian or Patient refused 2021 restorationist services? Do [...] Previous sinus surgery: sinus surgery X2 in [place] and X2 at [place] per patient; mucocele notedby left eye on [...] Crusting Mild = 1 Mild = 1 [facility] Endoscopy Score = 2 ASSESSMENT / PLAN [...] if this occurs we will identify another sfdc consultant surgeon to supervise other team members to safely and seamlessly complete the procedure. Signed consent was obtained today. Patient was seen and examined today in conjunction with Dr. Darlin Olmedo ([id number]). HER PARTS MATCHER Associated attestation - Darlin Olmedo M.D. - 11/30/2019 10:43 AM LEATHER PARTS MATCHER I was the supervising physician in the delivery of the service. I saw the patient with Krista Casey APRN, DENTURE MODEL MAKER, MSN and agree with her history, Assessment [...]
--- OUTSIDE RECORDS SUMMARY | 2022-11-06 15:37 | XMS_ITS | Encounter Summary ---
:1965 Author Organization [facility] Address [address] [place] [address] Care Team Providers Name Role Phone Unavailable Primary Care Provider Unavailable Encounter Details Date Type Department Care Team Description 10/02/2019 Ancillary Procedure Department of Robert Diehl Arterial Radiology jimmy Celaya M.D. ([facility]) [place], [place] 200 [facility] 200 [place] [phone] Social History Tobacco Use Types Packs/Day Years [...] you attend religion or Patient refused 2021 latter day services? [...] Robert Diehl M.D. - 10/02/2019 3:20 PM DATA ANALYSIS MANAGER EXECUTIVE ASSISTANT TO PRESIDENT: Would you please give the patient a [...] artery finding and the left paraclinoid aneurysm. ANALYSIS MANAGER documented in this encounter Plan of Treatment Not on filedocumented as of this encounter Procedures Procedure Name Priority Date/Time Associated Comments Diagnosis INTERPRETATION OF RAD - Routine 10/02/2019 1:01 Thrombosis Result s for OUTSIDE MR NECK (most inpatients PM DATA ANALYSIS MANAGER Arterial (HCC) this p rocedure and all are in the outpatients) results section. documented in this encounter Results Interpretation of Outside MR Neck (10/02/2019 1:01 PM DATA ANALYSIS MANAGER) Anatomical Region Laterality Modality Neuroradiology RST LOS, Neuroradiology ARZ LOS, N/A Magnetic Resonance Neuroradiology FLA LOS, Neck Specimen (Source) Anatomical Collection Method Collection Time Re ceived Time Location / / Volume Laterality 10/02/2019 1:03 PM DATA ANALYSIS MANAGER Impressions 10/02/2019 1:18 PM DATA ANALYSIS MANAGER Similar appearance of the distal right vertebral artery irregularity and mild narrowing at C1, r elated to the nonocclusive luminal thrombus, as seen on the prior CTA exams . MRA neck otherwise negative and unchanged. Narrative 10/02/2019 1:18 PM DATA ANALYSIS MANAGER EXAM: ??INTERPRETATION OF OUTSIDE MR NECK [...]
--- OUTSIDE RECORDS SUMMARY | 2022-11-06 15:38 | XMS_ITS | Encounter Summary ---
:1965 Author Organization [facility] Address [address] [place] [address] Care Team Providers Name Role Phone Unavailable Primary Care Provider Unavailable Reason for Visit Reason Onset Date Comments [facility] Med Request 03/30/2019 Encounter Details Date Type Department Care Team Description 03/30/2019 Clinical Communication Department of Tesfaye Ortega [facility] Med Request Nicotine Kenna Bose M.S., [place] [place] [place] [address] [place] [phone] Social History Tobacco Use Types Packs/Day Years [...] you attend congregational or Patient refused 2021 pentecostal services? Do [...] CDT Please send the following to the [facility] 1) 14 mg patch 2) [...]
--- OUTSIDE RECORDS SUMMARY | 2022-11-06 15:38 | XMS_ITS | Encounter Summary ---
:1965 Author Organization [facility] Address [address] [place] [address] Care Team Providers Name Role Phone Unavailable Primary Care Provider Unavailable Reason for Referral Outpatient (Routine) - Closed Specialty Diagnoses / Procedures Referred By Contact Refer red To Contact Neurology Diagnoses Stroke (HCC) Thrombosis Arterial (HCC) Aneurysm Cerebral Unruptured (HCC) Fernie Soriano M.D. [facility] [address] [place] [phone] Referral ID Status Reason Start Date Expiration Date Visits Requ ested Visits Authorized [id number] Closed 03/31/2019 03/30/2020 1 1 Reason for Visit Reason Comments Dizziness Evaluated in [place] with CT scan. Headache Encounter Details Date Type Department Care Team Description 03/29/2019 - Hospital Encounter [facility] Alfredo Rausch M.D., M.A. [address] [phone] Stroke (HCC) (Primary Dx); [facility] [address] [place] [address] [phone] Transient Ischemic Attack; [facility] [address] [place] [address] [phone] Thrombosis Arterial (HCC); [facility], Nicotine Dependence Cigarettes; Second floor Aneurysm Cerebral Unruptured ([facility]) [address] [place] [address] Social History Tobacco Use Types [...] patient, follows with Dr. Estephanie Franz in [place], [place]. Primary Care Provider Phone Number: None [...] and PCP follow-up with Dr. Franz in [place], [place], scheduled for 04/02/2019. - Please be [...] 04/10/2019 2:15 PM Darlin Olmedo M.D. ENT [facility] RST Spec TEST RESULTS PENDING AT DISCHARGE [...] speech at the time. She presented to [facility], where MRI/MRA head showed multiple foci of [...] was discharged on a , our clinical veterinary assistant will arrange for PCP follow-up and [...] speech at the time. She presented to [facility], where MRI/MRA head showed multiple foci of [...] was discharged on a weekend, our clinical veterinary assistant will arrange for PCP follow-up and INR checks on Tuesday. RECOMMENDATIONS: - Patient to continue enoxaparin 70 mg (1 mg/kg) BID bridge to warfarin with goal INR 2-3. Patient to receive INR checks and PCP follow-up with Dr. rFanz in [place], [place] as soon as possible after discharge. [...] this after visit summary to your appointment(s). [place], [place] April 02, 2019 - Tuesday --12:30 PM - Hospital Follow-Up with Dr. Gold MD, Colleague of Juana Franz MD, primary care provider, at [facility] RECOMMENDATIONS: * April 02, 2019 at 9:30 AM [facility] INR Check * [facility] You may have outpatient appointments at [facility] that changed during your hospitalization. Refer to your [facility] Patient Visit Guide (PVG) for the most current schedule of appointments and detailed instructions of tests/procedures. Call [phone], if you did not receive an PVG or need to CANCEL any [facility] appointment(s). You were discharged from the [...] are intact. There is no dysmetria on fffloq-si-hzfq and xkco-ud-ewgc. There are no abnormal or extraneous movements. [...] next week (to be arranged by clinical veterinary assistant, in-basket message sent). Will also require [...] --Will arrange for PCP appt (Dr. Franz, [place], [place]) for INR monitoring 04/02 or earliest [...] page the neurology stroke/cerebrovascular disease service pager ([phone]) with any questions orconcerns. Kylie Rubio RRebekah. [...] are intact. There is no dysmetria on upzpsv-dm-hqku and bouj-ev-omag. There are no abnormal or extraneous movements. [...] Findings discussed at 2:03 p.m with pager [phone] Additional Diagnostic Studies Ecg 12 Lead Result [...] page the neurology stroke/cerebrovascular disease service pager ([phone]) with any questions orconcerns. documented in this [...] the day of presentation and came to [facility], although head CT did not [...] developed a headache approximately 45 min later. [place] room was tilting, not spinning, and had [...] dull and mild now. She presented to [facility], where MRI/MRA head showed multiple foci of [...] are intact. There is no dysmetria on sncmuh-gc-mkei and xxwp-rk-rnwf. There are no abnormal or extraneous movements. [...] Findings discussed at 2:03 p.m with pager [phone] Additional Diagnostic Studies ASSESSMENT / PLAN Ms. [...] consult placed Diet: general diet, NPO at [place] for DEVON Tubes/lines: Will place PIV VTE prophylaxis: therapeutic anticoagulation Code status: Full Code Disposition: Likely Home with expected discharge date pending Trent Ferrer M.D. 03/29/19 Please page the stroke/cerebrovascular neurology service pager ([phone]) for any questions or concerns. STROKE DOCUMENTATION: [...] Prior Function / Occupational Profile Level of [place]: Independent with ADLs and functional transfers, Independent [...] Score: 24 Basic Mobility Standardized Score: 61.14 [facility] 0-100% Score: 0 % Basic Mobility [facility] Modifier: CH INTERPRETATION: Clinicians answer the AM-PAC [...] 53 y.o. female who was seen at [facility] and is being evaluated for Tobacco [...] Prior Function / Occupational Profile Level of [place]: Independent with ADLs and functional transfers, Independent [...] be independent with home exercise resistive theraband ([employer]) program for left shoulder and elbow (MET) OT Goal #3 Date: 03/30/19 @FLOW12([id number])@ Plan Patient agrees with the plan of [...] living independently in her own apartment in [place] until yesterday morning when she noted the [...] Ms. Mosquera was initially taken to the [facility] where MRI/MRA (images which I reviewed in QREADS) revealed bila teral small areas of restricted diffusion in posterior distribution involving both the cerebellar and occipital lobes. The etiology was presumed embolic and she was transferred to [place] for further evaluation here. Upon arrival at [place], Ms. Mosquera was described as alert, in [...] has lived alone in an apartment in [place] for,I believe, 5 years. She is unemployed, [...] tone: Upper and lower extremities 0/0. Coordination: Ckpidc-nl-peow was 0/0. Satellite sign was symmetric. Cranial nerves II through XII: Extraocular movements were intact. Visual jhaveri were intact. Btqs-yg-jhnwnccq decreased hearing acuity bilaterally. Smile symmetric. 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 female who presents to the [facility] for evaluation of vertigo and [...] an Emergency Neurology consult note. Please page [phone] with any additional questions. I personally spent [...] CHIEF COMPLAINT/REASON FOR VISIT Dizziness (Evaluated in lovely with CT scan. ) and Headache HISTORY OF PRESENT ILLNESS 53-year-old female who presents from outside facility to [facility] ED with a chief concern of [...] She was transported from outside hospital to [facility] for further evaluation management by Neurology [...] do basic arithmetic No visual agnosia No hegu-tt-zogir agnosia Cfxfzo-rp-yzpd normal Nfso-gt-krmn normal Skin: Skin is warm, dry, intact [...] to the emergency department by ambulance from [facility] for evaluation of headache and difficulty with balance. Patient states that she woke up this morning and felt like her body was drunk. She subsequently developed a headache. She was seen at the outside hospital and underwent neuro imaging, laboratory evaluation, EKG testing. [facility] now [facility]. She is currently complaining of fatigue only. Neuro imaging at [place]: MRI head MRA demonstrates multiple foci of [...] speech at the time. She presented to [facility], where MRI/MRA head showed multiple foci of [...] was discharged on a weekend, our clinical veterinary assistant will arrange for PCP follow-up and INR checks on Tuesday. documented in this encounter Plan of Treatment Scheduled Referrals Name Type Priority Associated Order Schedule Diagnoses Neurology - Outpatient Routine Stroke ([facility]) Expected: Cerebrovascular consult Referral Thrombosis 02/2019 (clinic) Arterial ([facility]) (Approximate), Aneurysm Cerebral Expires: Unruptured ([facility]) 03/31/2022 documented as of this [...] - Routine 03/30/2019 5:32 Results for HOSPITAL ASSOCIATE MEDIA DIRECTOR - PM CDT this proc edure [...] N/A Computed Tomography ARZ LOS, Neuroradiology FLA [facility] Specimen [...] the ventral aspect (series 6 image s [id number]). The lumen remains significantly irregular and there [...] well seen. The RADHA, MCA, a nd COFFEE MAKER SERVICER branches are unremarkable in appearance. Stable postoperative [...] the ventral aspect (series 6 image s [id number]). The lumen remains significantly irregular and there [...] well seen. The RADHA, MCA, a nd COFFEE MAKER SERVICER branches are unremarkable in appearance. Stable postoperative [...] Prothrombin Time (PT/INR) (03/31/2019 8:12 AM CDT) [facility] Method Time Signature Prothrombin 11.5 9.4 - 12.5 03/31/2019 [facility] Time, P sec 8:46 AM CDT [facility] INR 1.0 0.9 - 1.1 03/31/2019 [facility] 8:46 AM CDT [facility] Comment: ----ADDITIONAL INFORMATION---- Standard intensity [...] Code Phon e Number [facility] - [address] [facility] [facility] [address] [place] [address] [facility] CBC without Differential (03/31/2019 8:12 AM CDT) [facility] gist Method Time Signature Hemoglobin 12.9 11.6 - 03/31/2019 [facility] 15.0 g/dL 8:37 AM CDT [facility] Hematocrit 39.6 35.5 - 03/31/2019 [facility] 44.9 % 8:37 AM CDT [facility] Erythrocytes 4.06 3.92 - 03/31/2019 [facility] 5.13 8:37 AM CDT LABORATORIES - x10(12)/L [facility] MCV 97.5 78.2 - 03/31/2019 [facility] 97.9 fL 8:37 AM CDT [facility] RBC Distrib Width 13.2 12.2 - 03/31/2019 [facility] 16.1 % 8:37 AM CDT [facility] Platelet Count 256 157 - 371 03/31/2019 [facility] x10(9)/L 8:37 AM CDT [facility] Leukocytes 5.3 3.4 - 9.6 03/31/2019 [facility] x10(9)/L 8:37 AM CDT [facility] Specimen Anatomical Collection Method Collection Time Receive d Time (Source) Location / / Volume Laterality Blood (Blood, 03/31/2019 8:12 AM 03/31/20 19 8:31 Venous) CDT AM CDT Trent Ferrer M.D. LAB BLOOD ADD-ON Performing Organization Address City/State/ZIP Code Phon e Number [facility] - [address] [place], [place] [address] [facility] HOLTER MONITOR - HOSPITAL ASSOCIATE MEDIA DIRECTOR - MONITORED IN HOSPITAL OR ED DISCHARGE (03/30/2019 5:32 PM CDT) [facility] gist Method Time Signature Recording Date [id number] HOLTER SENTINEL Analysis Date 20,190,510 HOLTER SENTINEL Max Heart Rate 125 bpm HOLTER SENTINEL Max Heart Rate [id number] HOLTER Time SENTINEL Min Heart Rate 46 bpm HOLTER SENTINEL Min Heart Rate [id number] HOLTER Time SENTINEL Mean Heart 71 bpm [...] count HOLTER Hour SENTINEL VE Max Per [id number] HOLTER Hour Time SENTINEL AF Count 0 count HOLTER SENTINEL SVT Runs 0 count HOLTER SENTINEL SVE Total 106 count HOLTER Beats SENTINEL SVE Percent 0 percent HOLTER Beats SENTINEL SVE Max Per 18 count HOLTER Hour SENTINEL SVE Max Per [id number] HOLTER Hour Time SENTINEL Specimen (Source) Anatomical [...] superior vena cava. Patent foramen ovale. ??No qagd-un-vuuep shunt at atrial level. ??Agitated saline injection(s) performed. ??Small phwgn-rw-vavo shunt a t atrial level at rest and with Valsalva release. Pericardial effusion. ??PROCEDURE ??Max sesophageal echocardiogram performed at the request of the primary government services professional. ??Adult probe inserted without difficulty. ??Procedure performed [...] Sedation Narrator or other pertinent record in [facility] for additional procedure and sedation in [...] superior vena cava. Patent foramen ovale. No llkr-vy-xyarb s ballesteros at atrial level. Agitated saline injection(s) performed. Small qeuoq-mc-kcsq shunt at atrial level at rest and with Valsalva release. Pericardial effusion. PROCEDURE Transeso phageal echocardiogram performed at the request of the primary government services professional. Adult pr obe inserted without difficulty. Procedure [...] Sedation Narrator or other pertinent record in [facility] for additional procedure and sedation in formation. Transesophageal echocardiogram completed without complications. For the complete report, see the Order-L evel Documents below. See PDF For Result Trent Ferrer M.D. CV ECHO PROCEDURES Prothrombin Time (PT/INR) (03/30/2019 11:42 AM CDT) [facility] Method Time Signature Prothrombin 11.3 9.4 - 12.5 03/30/2019 [facility] Time, P sec 12:05 PM CDT [facility] INR 1.0 0.9 - 1.1 03/30/2019 [facility] 12:05 PM CDT [facility] Comment: ----ADDITIONAL INFORMATION---- Standard intensity [...] Code Phon e Number [facility] - 200 [place], [place] [address] [facility] ECG 12 Lead (03/30/2019 9:30 AM CDT) P athologist Signature Ventricular Rate 53 BPM MUSE ECG/Min PA Interval 150 ms MUSE QRSD Interval 84 ms MUSE QT Interval 452 ms MUSE QTC Interval 424 ms MUSE P [place] 7 degrees MUSE R [place] -11 degrees MUSE T Wave [place] 1 degrees MUSE Specimen Anatomical Collection Method [...] Potassium, S 4.1 3.6 - 5.2 03/30/2019 [facility] mmol/L 7:41 AM CDT LABORATORIES - [facility] Sodium, S 141 135 - 145 03/30/2019 [facility] mmol/L 7:41 AM CDT [facility] - [facility] Chloride, S 106 98 - 107 03/30/2019 [facility] mmol/L 7:41 AM CDT [facility] - [facility] Bicarbonate, S 24 22 - 29 03/30/2019 [facility] mmol/L 7:41 AM CDT [facility] - [facility] Anion Gap 11 7 - 15 03/30/2019 [facility] 7:41 AM CDT [facility] - [facility] BUN (Blood Urea 14 6 - 21 03/30/2019 [facility] Nitrogen), S mg/dL 7:41 AM CDT [facility]IES - [facility] Creatinine 0.73 0.59 - 03/30/2019 [facility] 1.04 mg/dL 7:41 AM CDT [facility] eGFR-Non >90 >=60 03/30/2019 [facility] Black/ mL/min/BSA 7:41 AM CDT LABORATORIES [facility] Comment: ----ADDITIONAL INFORMATION---- Estimated GFR calculated using the 2009 CKD_EPI creatinine equation. eGFR-Black/ >90 >=60 mL/min/BSA 03/30/2019 7:41 [facility] CDT [facility] Comment: ----ADDITIONAL INFORMATION---- Estimated GFR calculated using the 2009 CKD_EPI creatinine equation. Calcium, Total, S 8.9 8.6 - 10.0 mg/dL 03/30/2019 7:41 AM [facility] S Glucose, S 100 70 - 140 mg/dL 03/30/2019 7:41 AM [facility] S Specimen Anatomical Collection Method Collection Time Receive d Time (Source) Location / / Volume Laterality Blood (Blood, 03/30/2019 6:21 AM 03/30/20 19 6:52 Venous) CDT AM CDT Trent Ferrer M.D. LAB BLOOD ADD-ON Performing Organization Address City/State/ZIP Code Phon e Number [facility] - [address] (ABNORMAL) CBC without Differential (03/30/2019 6:21 AM CDT) [facility] Method Time Signature Hemoglobin 12.5 11.6 - 03/30/2019 [facility] 15.0 g/dL 6:54 AM CDT [facility] Hematocrit 37.9 35.5 - 03/30/2019 [facility] 44.9 % 6:54 AM CDT [facility] Erythrocytes 3.87 (L) 3.92 - 03/30/2019 [facility] 5.13 6:54 AM CDT LABORATORIES - x10(12)/L [facility] MCV 97.9 78.2 - 03/30/2019 [facility] 97.9 fL 6:54 AM CDT [facility] RBC Distrib 13.5 12.2 - 03/30/2019 [facility] Width 16.1 % 6:54 AM CDT LAB[facility]ATORIES - [facility] Platelet Count 245 157 - 371 03/30/2019 [facility] x10(9)/L 6:54 AM CDT [facility] - [facility] Leukocytes 4.1 3.4 - 9.6 03/30/2019 [facility] x10(9)/L 6:54 AM CDT LABORATORIES - [facility] Specimen Anatomical Collection Method Collection Time Receive d Time (Source) Location / / Volume Laterality Blood (Blood, 03/30/2019 6:21 AM 03/30/20 19 6:44 Venous) CDT AM CDT Trent Ferrer M.D. LAB BLOOD ADD-ON Performing Organization Address City/[facility] Phon e Number [facility] - [address] [place] [address] [facility] Coagulation Factor II Activity Assay (03/30/2019 6:20 AM CDT) athologist Signature Coag Factor II 93 75 - 145 % 03/30/2019 [facility] Assay, P 11:53 AM CDT [facility] Comment: ----ADDITIONAL INFORMATION---- This test has been modified from the crawford josephurer's instructions. Its performance characteri stics were determined by [facility] in a manner co nsistent with CLIA requirements. This test has not bee n cleared or approved by the U.S. Food and Drug Admin istration. Specimen Anatomical Collection Method Collection Time Receive d Time (Source) Location / / Volume Laterality Blood 03/30/2019 6:20 AM 9 CDT 11:12 AM CDT Trent Ferrer M.D. LAB BLOOD ADD-ON Performing Organization Address City/[facility] Phon e Number [facility] - [address] [place] [address] [facility] Protein S Antigen, Total (03/30/2019 6:20 AM CDT) athologist Signature Protein S Ag, 91 80 - 160 % 03/30/2019 [facility] Total, P 11:04 AM CDT [facility] Comment: ----ADDITIONAL INFORMATION---- This test has been modified from the crawford Precise Path Roboticsacturer's instructions. Its performance characteri stics were determined by [facility] in a manner co nsistent with CLIA requirements. This test has not bee n cleared or approved by the U.S. Food and Drug Admin istration. Specimen Anatomical Collection Method Collection Time Receive d Time (Source) Location / / Volume Laterality Blood 03/30/2019 6:20 AM 9 7:17 CDT AM CDT Trnet Ferrer M.D. LAB BLOOD NON ADD-ON Performing Organization Address City/[facility]/ZIP [facility] Phon e Number [facility] - [address] [place], [place] [address] [facility] Reptilase Time, Plasma (03/30/2019 6:20 AM CDT) athologist Signature Reptilase 17 14 - 23 03/30/2019 [facility] Time, P sec 9:49 AM CDT [facility] Comment: ----ADDITIONAL INFORMATION---- This test has been modified from the kyle ruizurer's instructions. Its performance characteri stics were determined by [facility] in a manner co nsistent with CLIA requirements. This test has not bee n cleared or approved by the U.S. Food and Drug Admin istration. Specimen Anatomical Collection Method Collection Time Receive d Time (Source) Location / / Volume Laterality Blood 03/30/2019 6:20 AM 9 7:17 CDT AM CDT Trent Ferrer M.D. LAB BLOOD ADD-ON Performing Organization Address City/[facility] Phon e Number [facility] - [address] [place] [address] [facility] (ABNORMAL) APTT Mix 1:1 (03/30/2019 6:20 AM CDT) P athologist Signature APTT Mix 1:1 42 (H) 26 - 36 03/30/2019 [facility] sec 9:49 AM CDT [facility] Comment: ----ADDITIONAL INFORMATION---- This test has been modified from the kyle yangacturer's instructions. Its performance characteri stics were determined by [facility] in a manner co nsistent with CLIA requirements. This test has not bee n cleared or approved by the U.S. Food and Drug Admin istration. Specimen Anatomical Collection Method Collection Time Receive d Time (Source) Location / / Volume Laterality Blood 03/30/2019 6:20 AM 9 7:17 CDT AM CDT Trent Ferrer M.D. LAB BLOOD ADD-ON Performing Organization Address [facility] Phon e Number [facility] - [address] [place] [address] [facility] Heparin Anti-Xa Assay (03/30/2019 6:20 AM CDT) athologist Signature Heparin 0.38 IU/mL 03/30/2019 [facility] Anti-Xa, P 7:12 AM CDT [facility] Comment: UFH therapeutic range: ?? [...] LAB BLOOD NON ADD-ON Performing Organization Address City/[facility]/ZIP Code Phon e Number [facility] - [address] [place] [address] [facility] Beta-2 Glycoprotein 1 Antibodies, IgG and IgM (03/30/2019 6:20 AM CDT) P athologist Signature Beta 2 GP1 Ab <9.4 <15.0 03/30/2019 [facility] IgG, S (Negative) 7:[address] U/mL [facility] Beta 2 GP1 Ab <9.4 <15.0 03/30/2019 [facility] IgM, S (Negative) 7:[address] U/mL [facility] Specimen Anatomical Collection Method Collection Time Receive d Time (Source) Location / / Volume Laterality Blood (Blood, 03/30/2019 6:20 AM 03/30/20 19 9:55 Venous) CDT AM CDT Trent Ferrer M.D. LAB BLOOD ADD-ON Performing Organization Address City/State/ZIP Code Phon e Number [facility] [address] [place] [address] [facility] Phospholipid (Cardiolipin) Antibodies, IgG and IgM (03/30/2019 6:20 AM CDT) P athologist Signature Phospholipid Ab <9.4 <15.0 03/30/2019 [facility] IgM, S (Negative) 3:49 PM CDT [place] [facility] Phospholipid Ab <9.4 <15.0 03/30/2019 [facility] IgG, S (Negative) 3:49 PM CDT [place] [facility] Specimen Anatomical Collection Method Collection Time Receive d Time (Source) Location / / Volume Laterality Blood (Blood, 03/30/2019 6:20 AM 03/30/20 19 9:55 Venous) CDT AM CDT Trent Ferrer M.D. LAB BLOOD ADD-ON Performing Organization Address City/State/ZIP Code Phon e Number [facility] [address] [place] [address] [facility] (ABNORMAL) Thrombophilia Profile (03/30/2019 6:20 AM CDT) [facility] gist Method Time Signature Prothrombin Time 10.9 10.3 - 03/30/2019 [facility] (PT), P 12.8 sec 9:35 AM CDT LABORATORIES - [facility] INR 1.0 03/30/2019 [facility] 9:35 AM CDT [facility]IES - [facility] Activated 57 (H) 26 - 36 03/30/2019 [facility] Partial sec 9:46 AM CDT LABORATORIES - Thrombopl Time, [facility] DRVVT Screen 0.7 0.0 - 1.1 03/30/2019 [facility] Ratio ratio 9:35 AM CDT LABORATORIES - [facility] Thrombin Time 73 (H) 15 - 23 03/30/2019 [facility] (Bov[place]), P sec 9:46 AM CDT LABORATORIES - [facility] Comment: ----ADDITIONAL INFORMATION---- This test has been modified from the man ufacturer's instructions. Its performance characteri stics were determined by [facility] in a manner co nsistent with CLIA requirements. This test has not bee n cleared or approved by the U.S. Food and Drug Admin istration. Fibrinogen, P 276 200 - 430 mg/dL 03/30/2019 10:04 AM CDT [facility] Comment: ----ADDITIONAL INFORMATION---- This test has been modified from the [employer]'s instructions. Its performance characteri stics were determined by [facility] in a manner co nsistent with CLIA requirements. This test has not bee n cleared or approved by the U.S. Food and Drug Admin istration. Fibrinogen 0.26 0.00 - 0.50 03/30/2019 12:44 PM [facility] Equivalent Units mcg/mL U T [facility] D-Dimer Units (DDU) 130 0 - 250 ng/mL 03/30/2019 12:44 PM [facility] D-Dimer [facility] Soluble Fibrin <8 0.0 - 7.9 mcg/mL 03/30/2019 1:19 PM [facility] Monomer T [facility] Comment: ----ADDITIONAL INFORMATION---- This test was developed and its performa nce characteristics determined by [facility] in a manner co nsistent with CLIA requirements. This test has not bee n cleared or approved by the U.S. Food and Drug Admin istration. Antithrombin Activity, 99 80 - 130 % 03/30/2019 10:05 AM [facility] P T [facility] Comment: ----ADDITIONAL INFORMATION---- This test has been modified from the [employer]'s instructions. Its performance characteri stics were determined by [facility] in a manner co nsistent with CLIA requirements. This test has not bee n cleared or approved by the U.S. Food and Drug Admin istration. Protein C Activity, P 131 70 - 150 % 03/30/2019 9:33 A M T [facility] Comment: ----ADDITIONAL INFORMATION---- This test has been modified from the [employer]'s instructions. Its performance characteri stics were determined by [facility] in a manner co nsistent with CLIA requirements. This test has not bee n cleared or approved by the U.S. Food and Drug Admin istration. Protein S Ag, Free, 59 (L) 65 - 160 % 03/30/2019 10:19 AM [facility] P CDT LABORATORIES - [facility] Chloe Comment: ----ADDITIONAL INFORMATION---- This test has been modified from the [employer]'s instructions. Its performance characteri stics were determined by [facility] in a manner co nsistent with CLIA requirements. This test has not bee n cleared or approved by the U.S. Food and Drug Admin istration. APCRV Ratio 3.0 >or=2.3 03/30/2019 10:11 [facility] AM CDT LABORATORIES [facility] Prothrombin [id number] Negative Negative 04/02/2019 5:19 [facility] Mutation, B CDT LABORATORIES [facility] PTNT Reviewed By Lewis Moreno, 04/02/2019 5:19 [facility] MBBS CDT LABORATORIES [facility] PTNT Interpretation This individual DOES NOT hav e the Prothrombin [id number] mutation. Although the 04/02/2019 5:19 [facility] Prothrombin [id number] mutation is absent, the chloe kang may have other genetic CDT LABORATORIES - and environmental risk factors for thrombosis. Alanna rosa genetic consultation [facility] and counseling of potentially affected family members [facility] testing. Comment: ----ADDITIONAL INFORMATION---- This test is a direct mutation analysis using PCR amplification, signal generation and release by cleavage of se quence specific alleles ([employer], [place], [place], [place]). This test has been modified from the crawford [employer]'s instructions. Its performance characteristics were determi jayesh by [facility] in a manner consistent with CLIA requirements. This test has not been cleared or approved by the U.S. Food and Drug Administration . Reviewed by: Milad Emerson M.D. 04/03/2019 1:35 PM [facility] CDT LABORATORIES [facility] Interpretation ?Type of Study: ?? Thrombophilia Profile 04/03/2019 1:35 PM [facility] ?IMPRESSION: ??1) Decreased protein S free antigen, a cquired versus CDT LABORATORIES - congenital. ??See comments and suggest clinical correlation. [facility] ?2) Data are consistent with the [...] patient does n ot have the prothrombin [id number] mutation. ?Separately performed and reported testing for beta-2 glycoprotein I and anticardiolipin antibodies (IgG and IgM isotypes) demonstrat ed normal results, providing no evidence of antiphospholipid antibodie s by these methodologies. Specimen Anatomical Collection Method Collection Time Receive d Time (Source) Location / / Volume Laterality Blood (Blood, 03/30/2019 6:20 AM 03/30/20 19 8:13 Venous) CDT AM CDT Narrative [facility] - 04/03/2019 1:37 PM CDT Specimen Information: Specimen ID: [id number] Specimen Type: Blood Specimen Collection Start Date: 5/3/201 9 ??6:20 AM Specimen Received Date: 03/30/2019 ??8:13 AM Specimen ID: [id number] Specimen Type: Blood Specimen Collection Start Date: ??6:20 AM Specimen Received Date: 03/30/2019 ??7:17 AM Specimen ID: [id number] Specimen Type: Blood Specimen Collection Start Date: ??6:20 AM Specimen Received Date: 03/30/2019 ??7:17 AM Specimen ID: [id number] Specimen Type: Blood Specimen Collection Start Date: ??6:20 AM Specimen Received Date: 03/30/2019 ??7:17 AM Specimen ID: [id number] Specimen Type: Blood Specimen Collection Start Date: ??6:20 AM Specimen Received Date: 03/30/2019 ??7:17 AM Specimen ID: [id number] Specimen Type: Blood Specimen Collection Start Date: ??6:20 AM Specimen Received Date: 03/30/2019 ??7:17 AM Trent Ferrer M.D. LAB BLOOD NON ADD-ON Performing Organization Address City/State/ZIP Code Phon e Number [address] [place] [address] Heparin Anti-Xa Assay (03/29/2019 11:28 PM CDT) P athologist Signature Heparin 0.31 IU/mL 03/30/2019 [facility] Anti-Xa, P 12:05 AM CDT LABORATORIES - [facility] Comment: UFH therapeutic range: ?? [...] LAB BLOOD NON ADD-ON Performing Organization Address City/[facility] Phon e Number [facility] LABORATORIES - [address] [phone] [facility] Hemoglobin A1c (03/29/2019 6:05 PM CDT) Analysis Performed At [facility] logist Time Signature Hemoglobin A1c, 5.6 4.0 - 5.6 03/29/2019 [facility] B % 6:50 PM CDT [facility] Specimen Anatomical Collection Method Collection Time Receive d Time (Source) Location / / Volume Laterality Blood (Blood, 03/29/2019 6:05 PM 03/29/20 19 6:28 Venous) CDT PM CDT Trent Ferrer M.D. LAB BLOOD ADD-ON Performing Organization Address City/[facility] Phon e Number [facility] LABORATORIES - [address] [phone] [facility] (ABNORMAL) Lipid Panel (03/29/2019 6:05 PM CDT) [facility] g[facility] Method Time Signature Cholesterol, 204 (H) mg/dL 03/29/2019 [facility] Total 7:09 PM CDT [facility] Comment: ----REFERENCE VALUE---- Desirable: < 200 Borderline high: 200 - 239 High: > or = 240 Triglycerides 104 mg/dL 03/29/2019 7:09 PM CDT [facility] Comment: ----REFERENCE VALUE---- Normal: <150 Borderline high: 150-199 High: 200-499 Very high: > or =500 Cholesterol, HDL, S 91 >=50 mg/dL 03/29/2019 7:09 PM CDT [facility] Calculated LDL 92 mg/dL 03/29/2019 7:09 PM CDT [facility] Comment: ----REFERENCE VALUE---- Desirable: <100 Above Desirable: 100-129 Borderline high: 130-159 High: 160-189 Very high: > or =190 Cholesterol, Non-HDL, 113 mg/dL 03/29/2019 7:0 9 PM CDT [facility] LABORATORIES Calculated - [facility] Comment: ----REFERENCE VALUE---- Desirable: <130 Above Desirable: 130-159 Borderline high: 160-189 High: 190-219 Very high: > or =220 Specimen Anatomical Collection Method Collection Time Receive d Time (Source) Location / / Volume Laterality Blood (Blood, 03/29/2019 6:05 PM 03/29/20 19 6:28 Venous) CDT PM CDT Trent Ferrer M.D. LAB BLOOD ADD-ON Performing Organization Address City/[facility]/ZIP [facility] Phon e Number [facility] - [address] S-TSH (Thyroid-Stimulating Hormone - Sensitive) (03/29/2019 6:05 PM CDT) athologist Signature TSH, Sensitive 1.6 0.3 - 4.2 03/29/2019 [facility] mIU/L 7:09 PM CDT [facility] Specimen Anatomical Collection Method Collection Time Receive d Time (Source) Location / / Volume Laterality Blood (Blood, 03/29/2019 6:05 PM 03/29/20 19 6:28 Venous) CDT PM CDT Trent Ferrer M.D. LAB BLOOD ADD-ON Performing Organization Address City/[facility]/ZIP Code Phon e Number [facility] LABORATORIES - [address] APTT (Activated Partial Thromboplastin Time) (03/29/2019 4:46 PM CDT) athologist Signature Activated 29 25 - 37 03/29/2019 [facility] Partial sec 5:01 PM CDT LABORATORIES - [facility] Specimen Anatomical Collection Method Collection Time Receive d Time (Source) Location / / Volume Laterality Blood (Blood, 03/29/2019 4:46 PM 03/29/20 19 4:52 Venous) CDT PM CDT Trent Ferrer M.D. LAB BLOOD ADD-ON Performing Organization Address City/[facility]/ZIP Code Phon e Number [facility] LABORATORIES - [address] [phone] [facility] CT Head Neck Angiogram with [...] gs discussed at 2:03 p.m with pager [phone] Narrative 03/29/2019 4:34 PM CDT EXAM: CT [...] gs discussed at 2:03 p.m with pager [phone] Eliseo Mejias M.D. IMG CT PROCEDURES CT [...] gs discussed at 2:03 p.m with pager [phone] Narrative 03/29/2019 4:34 PM CDT EXAM: CT [...] gs discussed at 2:03 p.m with pager [phone] Eliseo Mejias M.D. IMG CT PROCEDURES (ABNORMAL) CBC with Differential, Blood (03/29/2019 2:04 PM CDT) [facility] gist Method Time Signature Hemoglobin 12.4 11.6 - 03/29/2019 [facility] 15.0 g/dL 2:11 PM CDT LABORATORIES - [facility] Hematocrit 37.0 35.5 - 03/29/2019 [facility] 44.9 % 2:11 PM CDT LABORATORIES - [facility] Erythrocytes 3.79 (L) 3.92 - 03/29/2019 [facility] 5.13 2:11 PM CDT LABORATORIES - x10(12)/L [facility] MCV 97.6 78.2 - 03/29/2019 [facility] 97.9 fL 2:11 PM CDT LABORATORIES - [facility] RBC Distrib 13.3 12.2 - 03/29/2019 [facility] Width 16.1 % 2:11 PM CDT LABORATORIES - [facility] Platelet Count 238 157 - 371 03/29/2019 [facility] x10(9)/L 2:11 PM CDT LABORATORIES - [facility] Leukocytes 4.7 3.4 - 9.6 03/29/2019 [facility] x10(9)/L 2:11 PM CDT LABORATORIES - [facility] Neutrophils 2.33 1.56 - 03/29/2019 [facility] 6.45 2:11 PM CDT LABORATORIES - x10(9)/L [facility] Lymphocytes 1.74 0.95 - 03/29/2019 [facility] 3.07 2:11 PM CDT LABORATORIES - x10(9)/L [facility] Monocytes 0.32 0.26 - 03/29/2019 [facility] 0.81 2:11 PM CDT LABORATORIES - x10(9)/L [facility] Eosinophils 0.22 0.03 - 03/29/2019 [facility] 0.48 2:11 PM CDT LABORATORIES - x10(9)/L [facility] Basophils 0.04 0.01 - 03/29/2019 [facility] 0.08 2:11 PM CDT LABORATORIES - x10(9)/L [facility] Specimen Anatomical Collection Method Collection Time Receive d Time (Source) Location / / Volume Laterality Blood (Blood, 03/29/2019 2:04 PM 03/29/20 19 2:08 Venous) CDT PM CDT Eliseo Mejias M.D. LAB BLOOD ADD-ON Performing Organization Address City/State/ZIP Code Phon e Number [facility] LABORATORIES - [address] [place], [place] [address] [facility] Basic Metabolic Panel (03/29/2019 2:04 PM CDT) Analysis Performed At Patho logist Time Signature Potassium, P 4.0 3.6 - 5.2 03/29/2019 [facility] mmol/L 2:24 PM CDT LABORATORIES [facility] Sodium, P 142 135 - 145 03/29/2019 [facility] mmol/L 2:24 PM CDT LABORATORIES [facility] Chloride, P 107 98 - 107 03/29/2019 [facility] mmol/L 2:24 PM CDT LABORATORIES [facility] Bicarbonate, P 24 22 - 29 03/29/2019 [facility] mmol/L 2:24 PM CDT LABORATORIES [facility] Anion Gap, P 11 7 - 15 03/29/2019 [facility] 2:24 PM T [facility] BUN (Blood Urea 17 6 - 21 03/29/2019 [facility] Nitrogen), P mg/dL 2:24 PM T [facility] Creatinine 0.81 0.59 - 03/29/2019 [facility] 1.04 mg/dL 2:24 PM T [facility] eGFR-Black/Afri >90 >=60 03/29/2019 [facility] can [place] mL/min/BSA 2:24 PM T [facility] Comment: ----ADDITIONAL INFORMATION---- Estimated GFR calculated using the 2009 CKD_EPI creatinine equation. eGFR Non-Black/ 82 >=60 mL/min/BSA 03/29/2019 2:24 PM [facility] [place] T [facility] Comment: ----ADDITIONAL INFORMATION---- Estimated GFR calculated using the 2009 CKD_EPI creatinine equation. Calcium, Total, P 8.7 8.6 - 10.0 mg/dL 03/29/2019 2:24 PM [facility] CDT [facility] Glucose, P 101 70 - 140 mg/dL 03/29/2019 2:24 PM [facility] Specimen Anatomical Collection Method Collection Time Receive d Time (Source) Location / / Volume Laterality Blood (Blood, 03/29/2019 2:04 PM 03/29/20 2:08 Venous) CDT PM CDT Eliseo Mejias M.D. LAB BLOOD ADD-ON Performing Organization Address City/State/ZIP Code Phon e Number [facility] LABORATORIES - [address] [place], [place] [address] [facility] documented in this encounter Visit [...] Provider: Marlene Irwin R.N.)2108 (Given - Provider: Marelne Irwin R.N.) 0529 (Given - Provider: Makenzie [...] (NICODERM CQ) 0607 (Medication Applied - Provider: Maknezie Childs R.N.)1505 (Due: Medication Removed - Provider: [...] (LMX) 1 application, topical, 4 times daily PA N, mild pain or score 1-3 of [...] contact. oxyCODONE IR tablet 5 mg (ROXICODONE) 7975 (Given - Pr ovider: Makenzie Childs RRebekah.) 0664 (Given - Provider: Christiano Mcdonough.)1315 (Given - [...] Jerica Keller R.N.)1339 (Not Given - Provider: Sofei Sutton RBrittonNBritton - Reason: Other - Comment: [...]
--- OUTSIDE RECORDS SUMMARY | 2022-11-06 15:38 | XMS_ITS | Encounter Summary ---
:1965 Author Organization [facility] Address [address] [place] [address] Care Team Providers Name Role Phone Unavailable Primary Care Provider Unavailable Encounter Details Date Type Department Care Team Description 04/04/2019 - Hospital Encounter [facility] Blanca, Stroke (H [facility]) (Primary Dx); [facility]ine Functional Status; [facility], [address] [place] [address] Second floor [phone] [place] [address] [place], [place] (Work) [phone] Social History Tobacco Use [...] you attend mu-ism or Patient refused 2021 taoism services? Do [...] up with your primary care provider in [place], [place] for ongoing monitoring of this. - [...] use disorder who initially was admitted to [facility] from 03/29/2019 to 03/31/2019 after [...] use disorder who initially was admitted to [facility] from 03/29/2019 to 03/31/2019 after [...] up with your primary care provider in [place], [place] for ongoing monitoring of this. - [...] only on level surfaces with therapist managing campus monitor while inpatient. Stairs not assessed. RECOMMENDATIONS: [...] by Jessie Candelario P.T., D.P.T. Contact information: [facility], [address] Beryl Gaytan, Laquita Guardado - 04/05/2019 7:21 AM CDT Take a copy of this after visit summary to your appointment(s). [place], [place] April 10, 2019 -Tuesday --11:15 AM - Hospital Follow-Up with Dr. Rosalva MD Colleague of Juana Franz MD primary care provider, at [facility] RECOMMENDATIONS: * * [facility] You may have outpatient appointments at [facility] that changed during your hospitalization. Refer to your [facility] Patient Visit Guide (PVG) for the most current schedule of appointments and detailed instructions of tests/procedures. Call [phone], if you did not receive an PVG or need to CANCEL any [facility] appointment(s). You were discharged from the [...] No acute overnight events. Vertigo has improved. Byxx-ig-vjazvrqy headache continues. No new symptoms or concerns. [...] use disorder who initially was admitted to [facility] from 03/29/2019 to 03/31/2019 after [...] being followed by a provider at the [facility]. Dose was increased to 1.5 tabs [...] no new changes. MRI may not exchange engineer at this point as she is now [...] 0 and symmetric in all muscle groups. Wsnifl-trng-astpxk and heel- montes testing is normal. Deep [...] clarify this, but would not necessarily exchange engineer. An MRI brain with and without contrast [...] baseline. Have triaged to therapy only; no residential treatment counselor consult appears to be necessary at this time. If at any time, the therapists or referring service feel that a residential treatment counselor review is necessary, please send a new [...] Prior Function / Occupational Profile Level of [place]: Independent with ADLs and functional transfers Lives [...] Goal Met 04/05/19 Progress: Improving as expected @[id number])@ Plan Patient agrees with the plan of [...] Prior Function / Occupational Profile Level of [place]: Independent with ADLs and functional transfers Lives [...] for safety and for therapist to bring campus monitor, no obvious loss of balance noted, patient appeared steady with quick turns Training/Intervention: supervision for therapist to bring campus monitor Response: Patient mobilizing 200+ meters with [...] for safety and for therapist to bring campus monitor, no obvious loss of balance noted, patient appeared steady with quick turns Training/Intervention: supervision for therapist to bring campus monitor Response: Patient mobilizing 200+ meters with [...] use disorder who initially was admitted to [facility] from 03/29/2019 to 03/31/2019 after [...] Potassium, S 4.1 3.6 - 5.2 04/05/2019 [facility] mmol/L 9:28 AM CDT LABORATORIES - [facility] Sodium, S 142 135 - 145 04/05/2019 [facility] mmol/L 9:28 AM CDT [facility] - [facility] Chloride, S 105 98 - 107 04/05/2019 [facility] mmol/L 9:28 AM CDT [facility] - [facility] Bicarbonate, S 25 22 - 29 04/05/2019 [facility] mmol/L 9:28 AM CDT [facility] - [facility] Anion Gap 12 7 - 15 04/05/2019 [facility] 9:28 AM CDT [facility] - [facility] BUN (Blood Urea 20 6 - 21 04/05/2019 [facility] Nitrogen), S mg/dL 9:28 AM CDT LABORATORIES [facility] Creatinine 0.88 0.59 - 04/05/2019 [facility] 1.04 mg/dL 9:28 AM CDT LAB[facility]ATORIES [facility] eGFR-Non 74 >=60 04/05/2019 [facility] Black/ mL/min/BSA 9:28 AM CDT LABORATORIES [facility] Comment: ----ADDITIONAL INFORMATION---- Estimated GFR calculated using the 2009 CKD_EPI creatinine equation. eGFR-Black/ 86 >=60 mL/min/BSA 04/05/2019 9:28 [facility] CDT LABORATORIES [facility] Comment: ----ADDITIONAL INFORMATION---- Estimated GFR calculated using the 2009 CKD_EPI creatinine equation. Calcium, Total, S 9.2 8.6 - 10.0 mg/dL 04/05/2019 9:28 AM [facility] Glucose, S 124 70 - 140 mg/dL 04/05/2019 9:28 AM [facility] CDT [facility] S Specimen Anatomical Collection Method Collection Time Receive d Time (Source) Location / / Volume Laterality Blood (Blood, 04/05/2019 8:07 AM 04/05/20 19 8:26 Venous) CDT AM CDT Clemente Aiken M.D. LAB BLOOD ADD-ON Performing Organization Address City/State/ZIP Code Phon e Number [facility] LABORATORIES - [address] [place] [address] [facility] CBC with Differential, Blood (04/05/2019 8:07 AM CDT) [facility] Method Time Signature Hemoglobin 12.9 11.6 - 04/05/2019 [facility] 15.0 g/dL 8:38 AM CDT LABORATORIES [facility] Hematocrit 38.0 35.5 - 04/05/2019 [facility] 44.9 % 8:38 AM CDT LABORATORIES [facility] Erythrocytes 3.94 3.92 - 04/05/2019 [facility] 5.13 8:38 AM CDT LABORATORIES - x10(12)/L [facility] MCV 96.4 78.2 - 04/05/2019 [facility] 97.9 fL 8:38 AM CDT LABORATORIES [facility] RBC Distrib Width 13.2 12.2 - 04/05/2019 [facility] 16.1 % 8:38 AM CDT [facility] - [facility] Platelet Count 226 157 - 371 04/05/2019 [facility] x10(9)/L 8:38 AM CDT [facility] - [facility] Leukocytes 5.5 3.4 - 9.6 04/05/2019 [facility] x10(9)/L 8:38 AM CDT [facility] - [facility] Neutrophils 3.00 1.56 - 04/05/2019 [facility] 6.45 8:38 AM CDT LABORATORIES - x10(9)/L [facility] Lymphocytes 1.84 0.95 - 04/05/2019 [facility] 3.07 8:38 AM CDT LABORATORIES - x10(9)/L [facility] Monocytes 0.37 0.26 - 04/05/2019 [facility] 0.81 8:38 AM CDT LABORATORIES - x10(9)/L [facility] Eosinophils 0.22 0.03 - 04/05/2019 [facility] 0.48 8:38 AM CDT LABORATORIES - x10(9)/L [facility] Basophils 0.05 0.01 - 04/05/2019 [facility] 0.08 8:38 AM CDT LABORATORIES - x10(9)/L [facility] Specimen Anatomical Collection Method Collection Time Receive d Time (Source) Location / / Volume Laterality Blood (Blood, 04/05/2019 8:07 AM 04/05/20 19 8:26 Venous) CDT AM CDT Clemente Aiken M.D. LAB BLOOD ADD-ON Performing Organization Address City/State/ZIP Code Phon e Number [facility] LABORATORIES - [address] [place], [place] [address] [facility] (ABNORMAL) Prothrombin Time (PT/INR) (04/05/2019 8:07 AM CDT) [facility] gist Method Time Signature Prothrombin 21.9 (H) 9.4 - 04/05/2019 [facility] Time, P 12.5 sec 8:44 AM CDT LABORATORIES [facility] INR 2.0 0.9 - 1.1 04/05/2019 [facility] 8:44 AM CDT LABORATORIES [facility] Comment: ----ADDITIONAL INFORMATION---- Standard intensity warfarin [...] [facility] - [address] [place], [place] [address] [facility] [address] Head Neck Angiogram with IV [...] Signature Heparin 0.81 IU/mL 04/04/2019 [facility] Anti-Xa, P 7:40 PM CDT LAB[facility]ATORIES - [facility] Comment: UFH therapeutic range: ?? 0.30-0.70 [...] BLOOD NON ADD-ON Performing Organization Address [facility] Phon e Number [facility] LABORATORIES - [address] [place], [place] [address] [facility] (ABNORMAL) Prothrombin Time (PT/INR) (04/04/2019 5:25 PM CDT) [facility] Method Time Signature Prothrombin 20.1 (H) 9.4 - 04/04/2019 [facility] Time, P 12.5 sec 5:54 PM CDT LABORATORIES [facility] INR 1.8 0.9 - 1.1 04/04/2019 [facility] 5:54 PM CDT [facility] - [facility] Comment: ----ADDITIONAL INFORMATION---- Standard intensity warfarin therapeutic range: 2.0 to 3.0 ?? High intensity warfarin therapeutic rang e: 2.5 to 3.5 Specimen Anatomical Collection Method Collection Time Receive d Time (Source) Location / / Volume Laterality Blood (Blood, 04/04/2019 5:25 PM 04/04/20 19 5:32 Venous) CDT PM CDT Clemente Aiken M.D. LAB BLOOD ADD-ON Performing Organization Address [facility] Phon e Number [facility] LABORATORIES - [address] [place] [address] [facility] (ABNORMAL) CBC with Differential, Blood (04/04/2019 5:25 PM CDT) [facility] Method Time Signature Hemoglobin 12.1 11.6 - 04/04/2019 [facility] 15.0 g/dL 5:35 PM CDT [facility] Hematocrit 36.3 35.5 - 04/04/2019 [facility] 44.9 % 5:35 PM CDT [facility] Erythrocytes 3.76 (L) 3.92 - 04/04/2019 [facility] 5.13 5:35 PM CDT LABORATORIES - x10(12)/L [facility] MCV 96.5 78.2 - 04/04/2019 [facility] 97.9 fL 5:35 PM CDT LAB[facility]ATOR[facility] - [facility] RBC Distrib 12.9 12.2 - 04/04/2019 [facility] Width 16.1 % 5:35 PM CDT LAB[facility] - [facility] Platelet Count 224 157 - 371 04/04/2019 [facility] x10(9)/L 5:35 PM CDT [facility] - [facility] Leukocytes 4.6 3.4 - 9.6 04/04/2019 [facility] x10(9)/L 5:35 PM CDT [facility] - [facility] Neutrophils 2.09 1.56 - 04/04/2019 [facility] 6.45 5:35 PM CDT LABORATORIES - x10(9)/L [facility] Lymphocytes 1.88 0.95 - 04/04/2019 [facility] 3.07 5:35 PM CDT LABORATORIES - x10(9)/L [facility] Monocytes 0.39 0.26 - 04/04/2019 [facility] 0.81 5:35 PM CDT LABORATORIES - x10(9)/L [facility] Eosinophils 0.18 0.03 - 04/04/2019 [facility] 0.48 5:35 PM CDT LABORATORIES - x10(9)/L [facility] Basophils 0.04 0.01 - 04/04/2019 [facility] 0.08 5:35 PM CDT LABORATORIES - x10(9)/L [facility] Specimen Anatomical Collection Method Collection Time Receive d Time (Source) Location / / Volume Laterality Blood (Blood, 04/04/2019 5:25 PM 04/04/20 19 5:32 Venous) CDT PM CDT Clemente Aiken M.D. LAB BLOOD ADD-ON Performing Organization Address City/State/ZIP Code Phon e Number [facility] LABORATORIES - [address] [place], [place] [address] [facility] (ABNORMAL) APTT (Activated Partial Thromboplastin Time) (04/04/2019 5:25 PM CDT) Analysis Performed At Patho logist Time Signature Activated 44 (H) 25 - 37 04/04/2019 [facility] Partial sec 5:57 PM CDT LABORATORIES - Thrombopl [facility] Specimen Anatomical Collection Method Collection Time Receive d Time (Source) Location / / Volume Laterality Blood (Blood, 04/04/2019 5:25 PM 04/04/20 19 5:32 Venous) CDT PM CDT Clemente Aiken M.D. LAB BLOOD ADD-ON Performing Organization Address City/[facility]/ZIP Code Phon e Number [facility] LABORATORIES - [address] [place], [place] [address] [facility] Magnesium (04/04/2019 5:25 PM CDT) P athologist Signature Magnesium, S 2.3 1.7 - 2.3 04/04/2019 [facility] mg/dL 6:21 PM CDT LABORATORIES - [facility] Specimen Anatomical Collection Method Collection Time Receive d Time (Source) Location / / Volume Laterality Blood (Blood, 04/04/2019 5:25 PM 04/04/20 19 5:40 Venous) CDT PM CDT Clemente Aiken M.D. LAB BLOOD ADD-ON Performing Organization Address City/[facility]/ZIP Code Phon e Number [facility] LABORATORIES - [address] [place] [address] [facility] Phosphorus Inorganic (04/04/2019 5:25 PM CDT) Analysis Performed At Patho logist Time Signature Phosphorus 3.8 2.5 - 4.5 04/04/2019 [facility] (Inorganic), S mg/dL 6:21 PM CDT LABORATORIES - [facility] Specimen Anatomical Collection Method Collection Time Receive d Time (Source) Location / / Volume Laterality Blood (Blood, 04/04/2019 5:25 PM 04/04/20 19 5:40 Venous) CDT PM CDT Clemente Aiken M.D. LAB BLOOD ADD-ON Performing Organization Address City/[facility]/ZIP Code Phon e Number [facility] LABORATORIES - [address] [place], [place] [address] [facility] (ABNORMAL) Comprehensive Metabolic Panel (04/04/2019 5:25 PM CDT) Patholo gist Method Time Signature Potassium, S 3.5 (L) 3.6 - 5.2 04/04/2019 [facility] mmol/L 6:21 PM CDT LABORATORIES [facility] Sodium, S 141 135 - 145 04/04/2019 [facility] mmol/L 6:21 PM CDT [facility] - [facility] Chloride, S 105 98 - 107 04/04/2019 [facility] mmol/L 6:21 CDT [facility]IES - [facility] Bicarbonate, S 23 22 - 29 04/04/2019 [facility] mmol/L 6:21 CDT LAB[facility]ATORIES - [facility] Anion Gap 13 7 - 15 04/04/2019 [facility] 6:21 PM CDT [facility] - [facility] BUN (Blood Urea 20 6 - 21 04/04/2019 [facility] Nitrogen), S mg/dL 6:21 CDT LAB[facility]ATORIES - [facility] Creatinine 0.90 0.59 - 04/04/2019 [facility] 1.04 6:21 CDT LABORATORIES - mg/dL [facility] eGFR-Non 72 >=60 04/04/2019 [facility] Black/ mL/min/BS 6:21 CDT LABORATORIES - [place] [facility] Comment: ----ADDITIONAL INFORMATION---- Estimated GFR calculated using the 2009 CKD_EPI creatinine equation. eGFR-Black/ 83 >=60 mL/min/BSA 04/04/2019 6:21 [facility] [place] CDT [facility] - [facility] Comment: ----ADDITIONAL INFORMATION---- Estimated GFR calculated using the 2009 CKD_EPI creatinine equation. Calcium, Total, S 8.6 8.6 - 10.0 04/04/2019 6:21 [facility] mg/dL CDT LABORATORIES [facility] Glucose, S 96 70 - 140 04/04/2019 6:21 [facility] mg/dL CDT LABORATORIES [facility] Protein, Total, S 6.2 (L) 6.3 - 7.9 04/04/2019 6:21 [facility] g/dL CDT LABORATORIES [facility] Albumin, S 4.1 3.5 - 5.0 04/04/2019 6:21 [facility] g/dL CDT LABORATORIES [facility] Aspartate 21 8 - 43 U/L 04/04/2019 6:21 [facility] Aminotransferase (AST), CDT LABORA TORIES - S [facility] Alkaline Phosphatase, S 73 35 - 104 U/L 04/04/2019 6: 21 [facility] CDT LABORATORIES [facility] Alanine Aminotransferase 14 7 - 45 U/L 04/04/2019 6:2 1 [facility] (ALT), S PM CDT LAB[facility]ATORIES - [facility] Bilirubin, Total, S 0.2 <=1.2 mg/dL 04/04/2019 6:21 [facility] PM CDT LABORATORIES - [facility] Specimen Anatomical Collection Method Collection Time Receive d Time (Source) Location / / Volume Laterality Blood (Blood, 04/04/2019 5:25 PM 04/04/20 5:40 Venous) CDT PM CDT Clemente Aiken M.D. LAB BLOOD ADD-ON Performing Organization Address City/State/ZIP Code Phon e Number [facility] LABORATORIES - [address] [place], [place] [address] [facility] documented in this encounter Visit Diagnoses [...] Kiara Curry R.N., CRN - Comment: LOT# [id number]) 1-200 mL, intravenous, Once in imaging, contrast, [...]
--- OUTSIDE RECORDS SUMMARY | 2022-11-06 15:38 | XMS_ITS | Encounter Summary ---
:1965 Author Organization [facility] Address [address] [place] [address] Care Team Providers Name Role Phone Unavailable Primary Care Provider Unavailable Reason for Visit Outpatient (Routine) - Closed Specialty Diagnoses / Procedures Referred By Contact Refer red To Contact Otorhinolaryngology Diagnoses Sinus Nose Disorder [facility] [place] [address] [place] [address] Referral ID Status Reason Start Date Expiration Date Visits Requ ested Visits Authorized [id number] Closed 01/10/2019 01/10/2020 1 1 Encounter Details Date Type Department Care Team Description 03/01/2019 Comprehensive Visit Department of [place], Sinusit is Chronic (Primary Dx); Otorhinolaryngology in [place], [facility]us [facility] [address] [place] [address] [place] [address] Social History Tobacco Use Types Packs/Day Years [...] you attend mormon or Patient refused 2021 gnosticist services? Do [...] surgery X2 in [place] and X2 at [place] per patient; mucocele noted by left eye [...] obtained. - Obtained outside operative reports from [facility] - Discussed risks and benefits including but not limited to injury to the eye, lacrimal duct and CSFleak. Time spent with patient (counseling time more than 50% of visit:) 30 minutes Procedures Associated attestation - Darlni Olmedo M.D. - 03/02/2019 10:32 PM CDT [...]
--- OUTSIDE RECORDS SUMMARY | 2022-11-06 15:38 | XMS_ITS | Encounter Summary ---
:1965 Author Organization [facility] Address [address] [place] [address] Care Team Providers Name Role Phone Unavailable Primary Care Provider Unavailable Reason for Visit Reason Onset Date Comments Prior Medical Records/Sinus CT 03/02/2019 Encounter Details Date Type Department Care Team Description 03/02/2019 Clinical Department of [place], Prior Medical Communication Otorhinolaryngology in [place] rds/Sinus CT [place], [place] Lilian [address] [facility] [address] [place] [phone] [place] [address] Social History Tobacco Use Types Packs/Day Years [...] you attend christian or Patient refused 2021 worship services? Do [...] 8:13 AM CDT Per [place] (Dr. Olmedo), [facility] (Dr. Mckeon) ([phone]) was contacted. The previousmedical records have been received and sent for scanning into pt's chart. [facility] will be pushed. Coby documented in this encounter Plan of Treatment Not on filedocumented as of this encounter Visit Diagnoses Not on filedocumented in this encounter
--- OUTSIDE RECORDS SUMMARY | 2022-11-06 15:38 | XMS_ITS | Encounter Summary ---
:1965 Author Organization [facility] Address [address] [place] [address] Care Team Providers Name Role Phone Unavailable [...] you attend baptism or Patient refused 2021 confucianist services? Do [...]
--- OUTSIDE RECORDS SUMMARY | 2022-11-06 15:38 | XMS_ITS | Encounter Summary ---
:1965 Author Organization [facility] Address [address] [place] [address] Care Team Providers Name Role Phone Elsewhere, Pcp Primary Care Provider Unavailable Reason for Referral Outpatient (Routine) - Closed Specialty Diagnoses / Procedures Referred By Contact Refer red To Contact Otorhinolaryngology Diagnoses Sinus Nose Disorder Sinusitis Chronic Chris Mckeon [place] M.D. 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 Sinusitis Chronic [address] [facility] [address] [place] [address] [place], [place] [phone] Social History Tobacco Use Types Packs/Day Years [...] you attend zoroastrian or Patient refused 2021 yazdanism services? 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
--- OUTSIDE RECORDS SUMMARY | 2022-11-06 15:38 | XMS_ITS | Encounter Summary ---
:1965 Author Organization [facility] Address [address] [place] [address] Care Team Providers Name Role Phone Unavailable [...] you attend zoroastrianism or Patient refused 2021 scientologist services? Do [...]
--- OUTSIDE RECORDS SUMMARY | 2022-11-06 15:39 | XMS_ITS | Encounter Summary ---
:1965 Author Organization [facility] Address [address] [place] [address] Care Team Providers Name Role Phone Unavailable Primary Care Provider Unavailable Encounter Details Date Type Department Care Team Description 09/25/2015 Hospital Encounter HX [facility] Hernesto Watson M.D. [address] [place] [address], [address] [place] [address] (Wo rk) Social History Tobacco [...] you attend gnosticist or Patient refused 2021 lutheran services? Do [...] KUNZ LPN On: 09/25/2015 03:38 PM Source: [facility] POWERCHART Document Id: [id number] documented in this encounter Miscellaneous Notes Telephone Encounter - Conversion, Historical Provider Ser - 05/11/2017 11:32 AM CDT *Phone Message/Dr. Watson Document Contains Addenda Addendum by IVY BENITEZ on May 11, 2017 13:27:22 CDT From: IVY BENITEZ ( [employer] Head Saw Operator) To: Physical Medicine and Rehabilitation Staff; Sent: 05/11/2017 13:27:22 CDT Subject: RE: *Phone Message/Dr. Watson Left message on patients phone regarding this appointment. Addendum by NIKKIE GANDHI LPN on May 11, 2017 12:57:21 CDT From: NIKKIE GANDHI LPN ( Physical Medicine and Rehabilitation Staff) To: [employer] Head Saw Operator; Sent: 05/11/2017 12:57:21 CDT Subject: RE: *Phone Message/Dr. Watson 27 noon, please reschedule. From: IVY BENITEZ ( [employer] Head Saw Operator) To: Physical Medicine and Rehabilitation Staff; [...] it done. Please call her back at [phone] to advise. Advice/Action: Source used: ( ) [...] back cell phone number ( ) [facility] Id: [id number] Miscellaneous - Nikkie Gandhi L.P.N. - 05/04/2017 4:19 PM CDT *General Message Document Contains Addenda Addendum by ISIDRO HI on May 04, 2017 16:42:57 CDT From: ISIDRO HI ( [employer] Head Saw Operator) To: Physical Medicine and Rehabilitation Staff; Sent: 05/04/2017 16:42:57 CDT Subject: RE: *General Message Called patient and scheduled as requested. From: NIKKIE GANDHI LPN ( Physical Medicine and Rehabilitation Staff) To: [employer] Head Saw Operator; Sent: 05/04/2017 16:19:56 CDT Subject: *General Message Please call patient to schedule for bilateral upper extremity EMG. 05/11/17 at 11:45 am. 1 hour Source: [employer] Document Id: [id number] Electronically signed by Avinash [facility] Drug And Alcohol Counsellor [id number] at 06/01/2017 1:18 AM CDT documented in this encounter Plan of Treatment Not on filedocumented as of this encounter Visit Diagnoses Not on filedocumented in this encounter
--- OUTSIDE RECORDS SUMMARY | 2022-11-06 15:39 | XMS_ITS | Encounter Summary ---
:1965 Author Organization [facility] Address [address] [place] [address] Care Team Providers Name Role Phone Unavailable [...] 9:46 PM MST Indications: ?CP PATHWAY CALL [phone] IF POS ?? tech: pt. not and [...] from the original. Indications: CP PATHWAY CALL [phone] IF PO S tech: pt. not and [...] Lead with rhythm strip (02/03/2009 12:00 AM [facility]) Specimen (Source) Anatomical Location Collection Method / Collectio n Time Received Time / Laterality Volume 02/03/2009 Historical Provider ECG ORDERABLES Performing Organization Address City/State/ZIP Code Phon e Number [place]X [place]VERSION documented in this encounter Visit Diagnoses Not on filedocumented in this encounter
--- OUTSIDE RECORDS SUMMARY | 2022-11-06 15:39 | XMS_ITS | Encounter Summary ---
:1965 Author Organization [facility] Address [address] [place] [address] Care Team Providers Name Role Phone Unavailable [...] 2:55 PM MST Indications: ?CP PATHWAY CALL [phone] IF POS ORIGINAL REPORT - 24-Jul-2009 14:55:00 [...] from the original. Indications: CP PATHWAY CALL [phone] IF PO S ORIGINAL REPORT - 24-Jul-2009 [...]
--- OUTSIDE RECORDS SUMMARY | 2022-11-06 15:39 | XMS_ITS | Encounter Summary ---
:1965 Author Organization [facility] Address [address] [place] [address] Care Team Providers Name Role Phone Unavailable [...] you attend methodist or Patient refused 2021 catholic services? Do [...]
--- OUTSIDE RECORDS SUMMARY | 2022-11-06 15:39 | XMS_ITS | Encounter Summary ---
:1965 Author Organization [facility] Address [address] [place] [address] Care Team Providers Name Role Phone Unavailable [...] Lateral 2 Views (08/18/2008 9:44 PM [facility]) Anatomical Region Laterality Modality Chest, Thoracic RST LOS N/A Radiographic Xi ging Specimen (Source) Anatomical Collection Method Collection Time Re ceived Time Location / / Volume Laterality 08/18/2008 9:44 PM MST Narrative 08/18/2008 9:57 PM [facility] Indications: ?PNE PATHWAY CALL [phone] IF POS - pt unable to remove [...] from the original. Indications: PNE PATHWAY CALL [phone] IF P OS - pt unable to [...]
--- OUTSIDE RECORDS SUMMARY | 2022-11-06 15:39 | XMS_ITS | Encounter Summary ---
:1965 Author Organization [facility] Address [address] [place] [address] Care Team Providers Name Role Phone Unavailable [...] Results [place] Esophagram (08/24/2007 10:57 AM [facility]) Anatomical Region Laterality Modality Gastro Intestinal, Abdominal RST LOS N/A Rad iographic Imaging Specimen (Source) Anatomical Collection Method Collection Time Re ceived Time Location / / Volume Laterality 08/24/2007 10:57 AM MST Narrative 08/24/2007 11:41 AM [facility] Indications: ?STATUS POST GASTRIC BYPASS ORIGINAL [...]
--- OUTSIDE RECORDS SUMMARY | 2022-11-06 15:39 | XMS_ITS | Encounter Summary ---
:1965 Author Organization [facility] Address [address] [place] [address] Care Team Providers Name Role Phone Unavailable [...] you attend buddhism or Patient refused 2021 cheondoism services? Do [...]
--- OUTSIDE RECORDS SUMMARY | 2022-11-06 15:39 | XMS_ITS | Encounter Summary ---
:1965 Author Organization [facility] Address [address] [place] [address] Care Team Providers Name Role Phone Unavailable Primary Care Provider Unavailable Encounter Details Date Type Department Care Team Description 06/21/2017 Hospital Encounter HX [facility] PMTR Hernesto Watson M.D. [address] [place] [address], [address] [place] [address] (Wo rk) Social History Tobacco [...] you attend rastafari or Patient refused 2021 restoration services? Do [...] - 06/21/2017 12:00 AM CDT 1EMG EMG PROFILE SAW OPERATOR Sergio Watson MD ([phone]) REFERRED BY Dr. Romero. REFERRED FOR Ms. [...] WATSON MD On: 06/21/2017 03:10 PM Source: [facility] MHSDOLBEYNONRADSYS Document Id: [id number] documented in this encounter Miscellaneous Notes Miscellaneous - Sergio Watson M.D. - 06/21/2017 2:19 PM CDT Ambulatory Discharge Medication List [address] [id number] Visit Information Name: KAYLIN BENDER [facility] Number: [id number] Current Date: 06/21/2017 14:19:38 [...] MD Signed On:21-JUN-2017 14:19:21 Additional Information: Source: [facility] POWERCHART Document Id: [id number] Miscellaneous - Sergio Watson M.D. - 06/21/2017 2:19 PM CDT Ambulatory Patient Summary [address] [id number] Visit Information Name: KAYLIN BENDER [facility] Number: [id number] Current Date: 06/21/2017 14:19:38 [...] if you dont have one. Go to [email or web address] and click on Create Your Account. Then, follow the directions to complete the online form. Youll be asked for your [facility] number which you can find at the top of this document. Your Goals/Additional instructions: Source: [facility] POWERCHART Document Id: [id number] Miscellaneous - Ayla Mcmanus LBrittonP.N. 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 Intake/History Adult Bicycle Repair Technician Intake/History Entered On: 06/21/2017 13:26 CDT Performed On: 06/21/2017 13:25 CDT by AYLA MCMANUS MANAGER EDUCATIONAL Intake Systolic Blood Pressure : 124 mmHg Diastolic Blood Pressure : 62 mmHg NIBP Mean : 83 mmHg BP Location : Left upper extremity Blood Pressure Cuff Size : Regular Actual Weight : 70.55 kg(Converted to: 155 lb 9 oz) Dosing Weight Clinic : 70.55 kg AYLA MCMANUS LPN - 06/21/2017 13:25 CDT General Info Information Given By : Patient Languages : Cuban Is Patient Female and 13-50 no hysterectomy [...] MCMANUS LPN - 06/21/2017 13:25 CDT Source: [facility] POWERCHART Document Id: [id number]!24 documented in this encounter Plan of Treatment Not on filedocumented as of this encounter Visit Diagnoses Not on filedocumented in this encounter
--- OUTSIDE RECORDS SUMMARY | 2022-11-06 15:39 | XMS_ITS | Encounter Summary ---
:1965 Author Organization [facility] Address [address] [place] [address] Care Team Providers Name Role Phone Unavailable [...] 2:53 PM MST Narrative 08/16/2008 3:27 PM [facility] Indications: ?CHEST PAIN tech: Pt stated nipple [...] has been electronically sign ed by Jeison Bnudy MD on Aug 16 2008 ??3:26PM. Electronically [...] Lead with rhythm strip (08/16/2008 12:00 AM [facility]) Specimen (Source) Anatomical Location Collection Method / Collectio n Time Received Time / Laterality Volume 08/16/2008 Historical Provider ECG ORDERABLES Performing Organization Address City/State/ZIP Code Phon e Number HX [place] CONVERSION documented in this encounter Visit Diagnoses Not on filedocumented in this encounter
--- OUTSIDE RECORDS SUMMARY | 2022-11-06 15:39 | XMS_ITS | Encounter Summary ---
:1965 Author Organization [facility] Address [address] [place] [address] Care Team Providers Name Role Phone Unavailable Primary Care Provider Unavailable Encounter Details Date Type Department Care Team Description 01/15/2010 - Hospital Encounter HX ARZ NO MAPPING Leonides Du, 01/16/2010 [address] [place] [address] Social History Tobacco Use Types [...] you attend quaker or Patient refused 2021 caodaism services? Do [...] encounter Results [place] Esophagram (01/15/2010 9:36 PM [facility]) Anatomical Region Laterality Modality Gastro Intestinal, Abdominal RST LOS N/A Rad iographic Imaging Specimen (Source) Anatomical Collection Method Collection Time Re ceived Time Location / / Volume Laterality 01/15/2010 9:36 PM [facility] Narrative 01/15/2010 9:43 PM [facility] Indications: ?STATUS POST GASTRIC BYPASS ORIGINAL [...]
--- OUTSIDE RECORDS SUMMARY | 2022-11-06 15:39 | XMS_ITS | Encounter Summary ---
:1965 Author Organization [facility] Address [address] [place] [address] Care Team Providers Name Role Phone Unavailable [...]
--- OUTSIDE RECORDS SUMMARY | 2022-11-06 15:39 | XMS_ITS | Encounter Summary ---
:1965 Author Organization [facility] Address [address] [place] [address] Care Team Providers Name Role Phone Unavailable [...] you attend taoism or Patient refused 2021 zoroastrianism services? Do [...] Address City/State/ZIP Code Phon e Number HX [place] CONVERSION documented in this encounter Visit Diagnoses Not on filedocumented in this encounter
--- OUTSIDE RECORDS SUMMARY | 2022-11-06 15:39 | XMS_ITS | Encounter Summary ---
:1965 Author Organization [facility] Address [address] [place] [address] Care Team Providers Name Role Phone Unavailable [...]
--- OUTSIDE RECORDS SUMMARY | 2022-11-06 15:39 | XMS_ITS | Encounter Summary ---
:1965 Author Organization [facility] Address [address] [place] [address] Care Team Providers Name Role Phone Unavailable [...]
--- OUTSIDE RECORDS SUMMARY | 2022-11-06 15:39 | XMS_ITS | Encounter Summary ---
:1965 Author Organization [facility] Address [address] [place] [address] Care Team Providers Name Role Phone Unavailable [...] you attend yazdanism or Patient refused 2021 tenriism services? Do [...]
--- OUTSIDE RECORDS SUMMARY | 2022-11-06 15:39 | XMS_ITS | Encounter Summary ---
:1965 Author Organization [facility] Address [address] [place] [address] Care Team Providers Name Role Phone Unavailable [...] you attend mormonism or Patient refused 2021 taoism services? Do [...] 4:56 PM MST Narrative 07/06/2008 5:[address] [facility] Indications: ?PNE PATHWAY CALL [phone] IF POS. ??TECHNOTE: NIPPLE PIERCINGS LUNG ARTIFACT. [...] from the original. Indications: PNE PATHWAY CALL [phone] IF P OS. TECHNOTE: NIPPLE PIERCINGS LUNG [...]
--- OUTSIDE RECORDS SUMMARY | 2022-11-06 15:39 | XMS_ITS | Encounter Summary ---
:1965 Author Organization [facility] Address [address] [place] [address] Care Team Providers Name Role Phone Unavailable [...] you attend sabianism or Patient refused 2021 anabaptist services? Do [...] Pelvis with IV Contrast (09/02/2007 1:17 AM [facility]) Anatomical Region Laterality Modality Pelvis, Abdominal RST LOS N/A Computed Tomog cahto Specimen (Source) Anatomical Collection Method Collection Time Re ceived Time Location / / Volume Laterality 09/02/2007 1:17 AM [facility] Addenda Addendum by Elmo Cabrera M.D. on 03/2007 11:40 PM [facility] APPENDED REPORT - 02-Sep-2007 01 :40:00 CT Abdomen w/ Contrast CT Pelvis W Contrast Appended to link all pertinent exams to report. ? Electronically signed by: ?? Mamta Cabrera M.D. 02-Sep-2007 01:40 Narrative 09/02/2007 1:40 AM [facility] Indications: ?R/O ABCESS, POSTOP ORIGINAL [...] Abdomen with IV Contrast (09/02/2007 1:17 AM [facility]) Anatomical Region Laterality Modality Abdomen, Abdominal RST LOS N/A Computed [place] graphy Specimen (Source) Anatomical Collection Method Collection Time Re ceived Time Location / / Volume Laterality 09/02/2007 1:17 AM [facility] Addenda Addendum by Elmo Cabrera M.D. on 03/2007 11:40 PM [facility] APPENDED REPORT - 02-Sep-2007 01 :40:00 CT Abdomen w/ Contrast CT Pelvis W Contrast Appended to link all pertinent exams to report. ? Electronically signed by: ?? Mamta Cabrera M.D. 02-Sep-2007 01:40 Narrative 09/02/2007 1:40 AM [facility] Indications: ?R/O ABCESS, POSTOP ORIGINAL [...]
== END 2022-11-06 16:11 | disposition home or self-care (01) ==
PROVIDERS: Emergency Provider Emergency Medicine Emergency Medical Services; PCP Family Medicine
DX: J06.9 Acute upper respiratory infection, unspecified (principal); R07.89 Other chest pain
CPT/HCPCS: 71046; 99283; 99284

== ENCOUNTER 2022-11-08 13:04 | Outpatient (CLI) | payer MEDICARE, OTHER, SELFPAY ==
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
--- OUTSIDE RECORDS SUMMARY | 2022-11-08 13:50 | XMS_ITS | Encounter Summary ---
:1965 Author Organization [facility] Address [address] [place] [address] Care Team Providers Name Role Phone Clinic, [facility] Primary Care Provide r Mor Bautista MD Unavailable Reason for Visit Reason Onset Date Comments Appointment 05/12/2021 Encounter Details Date Type Department Care Team Description 05/12/2021 [facility] Infectious Disease None Appointment [place] [phone] Social History Tobacco Use Types Packs/Day Years Used Date Smoking Tobacco: Every Day Cigarettes 0.5 Smokeless Tobacco: Never Alcohol Use Standard Drinks/Week Comments No 0 (1 standard drink = 0.6 oz pure alcoho l) Sex Assigned at Date Recorded Not on file documented as of this encounter Miscellaneous Notes Telephone Encounter - Tiffanie Georges - 05/12/2021 12:17 PM CDT [facility] Call Center Phone Message May a detailed message be left on voicemail: yes Reason for Call: Other: Pt requesting call back, pt stated she is returning a call to the clinic. Batter Mixer Helper did not see any notes in the pt's chart to refer to. Pt stated she is being referred from [facility] for a staph infection in her shoulder, pt stated she is needing to be seen this week. Pt stated she has trouble finding an antibiotics that works due to all the allergies she has Action Taken: Message routed to: [facility] ([facility]): ID documented in this encounter Plan of Treatment Not on filedocumented as of this encounter Visit Diagnoses Not on filedocumented in this encounter Care Teams Electronic Organ Technician Relationship Specialty Start Date End Date Clinic, [facility] PCP - General 06/03/[address] [address] Mor Bautista MD Assigned Infectious Disease 06/12/2106/25 225 Mohan Porter Provider [address] [address] documented as of this encounter
--- OUTSIDE RECORDS SUMMARY | 2022-11-08 13:50 | XMS_ITS | Encounter Summary ---
:1965 Author Organization [facility] Address [address] [place] [address] Care Team Providers Name Role Phone [facility], [facility] Primary Care Provide r Encounter Details Date Type Department Care Team Description [facility] [...] filedocumented in this encounter Care Teams Test Rider Relationship Specialty Start Date End Date [facility] PCP - General 06/03/171999 [place] [address] documented as of this encounter
--- OUTSIDE RECORDS SUMMARY | 2022-11-08 13:50 | XMS_ITS | Encounter Summary ---
:1965 Author Organization [place] Address [address] [place] [address] Care Team Providers Name Role Phone [facility], [facility] Primary Care Provide r Encounter Details Date Type Department Care Team Description 05/20/2021 Records - [facility] Provider, [facility] Information Management [address] [facility] [address] [place] [address] Social History Tobacco Use Types Packs/Day Years [...] athologist Signature Creatinine 0.60 0.50 - 1.50 [facility] Specimen (Source) Anatomical Location Collection Method / Collectio n Time Received Time / Laterality Volume Blood specimen 04/20/2021 (specimen) Narrative 04/20/2021 [facility] EXTERNAL RESULT Historical Provider LAB - BLOOD ORDERABLES Performing Organization Address City/State/ZIP Code Phon e Number [facility] [address] [place] [address] documented in this encounter Visit Diagnoses Not on filedocumented in this encounter Care Teams Rack Room Worker Relationship Specialty Start Date End Date Clinic, [facility] PCP - General 06/03/171999 [place] [address] documented as of this encounter
--- OUTSIDE RECORDS SUMMARY | 2022-11-08 13:50 | XMS_ITS | Clinical Summary ---
:1965 Author Organization [place] Address [address] [place] [address] Care Team Providers Name Role Phone Clinic, [facility] Primary Care Provide r Allergies Active Allergy [...] breath / dyspnea or wheezing naloxone (NARCAN) [place] 4 mg into 0 Active nasal spray [...] (Takes 2 x 5000 unit tablet = 22457 unit dose) Esomeprazole Magnesium Take 40 mg [...] CDT Respiratory Rate 16 10/14/2017 4:28 PM BOAT CLEANING SUPERVISOR Oxygen Saturation 98% 10/14/2017 4:28 PM BOAT CLEANING SUPERVISOR Inhaled Oxygen Concentration - - Weight 74.8 [...] this topic Medical Devices Implanted Type Area Internet Project Manager Device Shelf Model / Identifier Expiration Serial / Date Lot Device Tvt Obturator Laser [id number] Other N/A: [employer] 04/27/2018 [id number] / Implanted: Qty: 1 on 10/14/2017 by Rain Herring MD at [facility]- / [id number] Procedures Procedure Name Priority Date/Time Associated Comments [...] IFA with Reflex (08/10/2022 11:10 AM CDT) [facility] Method Time Signature ERYN interpretation [...] Code Phon e Number SPECIALTY CORE/PROT/ENDO Specialty [place], [place] [address] Core/Prot/Endo [address] [facility], Room 3-580 Lyme Disease Total Abs [...] LAB - BLOOD ORDERABLES Performing Organization Address City/[facility]/ZIP Code Phon e Number SPECIALTY CORE/PROT/ENDO Specialty [place], [place] [address] Core/Prot/Endo [address] [facility] [address] [facility], Room 3-580 Uric acid (08/10/2022 11:10 AM CDT) athologist Signature Uric Acid 4.8 2.0 - 7.5 08/10/2022 [facility] mg/dL 11:36 AM CDT Specimen Anatomical Collection Method / Collection Time Recei jose Time (Source) Location / Volume Laterality Blood STRUCTURE OF RIGHT Venipuncture / 08/10/2022 11:10 HAND / Unknown Unknown AM CDT 11:10 AM CDT Clemente Katz PA-C LAB - BLOOD ORDERABLES Performing Organization Address City/State/ZIP Code Phon e Number [facility] [place] [address] TSH (08/10/2022 11:10 AM CDT) athologist Signature TSH 0.92 0.30 - 5.00 08/10/2022 [facility] uIU/mL 12:01 PM CDT Specimen Anatomical Collection Method / Collection Time Recei jose Time (Source) Location / Volume Laterality Blood STRUCTURE OF RIGHT Venipuncture / 08/10/2022 11:10 HAND / Unknown Unknown AM CDT 11:10 AM CDT Clemente Katz PA-C LAB - BLOOD ORDERABLES Performing Organization Address City/State/ZIP Code Phon e Number [facility] [place] [address] [facility] Thyroxine total (08/10/2022 11:10 AM CDT) athologist Signature T4 Total 5.4 4.5 - 11.7 08/10/2022 [facility] ug/dL 5:57 PM CDT Specimen Anatomical Collection Method / Collection Time Recei jose Time (Source) Location / Volume Laterality Blood STRUCTURE OF RIGHT Venipuncture / 08/10/2022 11:10 HAND / Unknown Unknown AM CDT 11:10 AM CDT Clemente Katz PA-C LAB - BLOOD ORDERABLES Performing Organization Address City/[facility]/ZIP Code Phon e [place] [address] Lab [address] [facility], Room 3-580 T4 free (08/10/2022 11:10 AM [...] City/State/ZIP Code Phon e [place] [address] [phone] Lab [address] [facility], Room 3[facility] T3 total (08/10/2022 11:10 AM CDT) athologist [...] City/State/ZIP Code Phon e Number [facility] [place] [address] [phone] Lab [address] [facility], Room 3[facility] Rheumatoid factor (08/10/2022 11:10 AM CDT) athologist Signature Rheumatoid <6 <12 IU/mL 08/10/2022 [facility] Factor 3:34 PM CDT CORE/PROT/ENDO Specimen Anatomical Collection Method / Collection Time Recei jose Time (Source) Location / Volume Laterality Blood STRUCTURE OF RIGHT Venipuncture / 08/10/2022 11:10 HAND / Unknown Unknown AM CDT 11:10 AM CDT Clemente Katz PA-C LAB - BLOOD ORDERABLES Performing Organization Address City/[facility]/ZIP Code Phon e Number [facility] CORE/PROT/ENDO [facility] Specialty [place] [address] Core/Prot/Endo [address] [facility], Room 3[facility] (ABNORMAL) D dimer quantitative (08/10/2022 11:10 AM CDT) [facility] gist Method Time Signature D-Dimer 1.69 (H) 0.00 - 08/10/2022 [facility] Quantitative 0.50 11:28 AM CDT ug/mL FEU Specimen Anatomical Collection Method / Collection Time Recei jose Time (Source) Location / Volume Laterality Blood STRUCTURE OF RIGHT Venipuncture / 08/10/2022 11:10 HAND / Unknown Unknown AM CDT 11:10 AM CDT Narrative [facility] - 08/10/2022 11:28 AM CDT This D-dimer assay is intended for use i n conjunction with a clinical pretest probability assessment model to exclude pulmonary embolism (PE) and deep venous thrombosis (DVT) in outpatients suspecte d of PE or DVT. The cut-off value is 0.50 ug/mL FEU. Clemente Katz PA-C LAB - BLOOD ORDERABLES Performing Organization Address City/[facility]/ZIP Code Phon e Number [facility] [place] [address] CRP inflammation (08/10/2022 11:10 AM CDT) P athologist Signature CRP 0.2 0.0 - <0.8 08/10/2022 [facility] mg/dL 11:33 AM CDT Specimen Anatomical Collection Method / Collection Time Recei jose Time (Source) Location / Volume Laterality Blood STRUCTURE OF RIGHT Venipuncture / 08/10/2022 11:10 HAND / Unknown Unknown AM CDT 11:10 AM CDT Clemente Katz PA-C LAB - BLOOD ORDERABLES Performing Organization Address City/[facility] Code Phon e Number [facility] [address] WBC and Differential (08/10/2022 11:05 AM CDT) Analysis Performed At Patho logist Time Signature WBC Count 4.2 4.0 - 11.0 08/10/2022 [facility] 10e3/uL 11:16 AM CDT % Neutrophils 43 % 08/10/2022 [facility] 11:16 AM CDT % Lymphocytes 42 % 08/10/2022 [facility] 11:16 AM CDT % Monocytes 11 % 08/10/2022 [facility] 11:16 AM CDT % Eosinophils 3 % 08/10/2022 [facility] 11:16 AM CDT % Basophils 1 % 08/10/2022 [facility] 11:16 AM CDT % Immature 0 % 08/10/2022 [facility] Granulocytes 11:16 AM CDT NRBCs per 100 WBC 0 <1 /100 08/10/2022 [facility] 11:16 AM CDT Absolute 1.8 1.6 - 8.3 08/10/2022 [facility] Neutrophils 10e3/uL 11:16 AM CDT Absolute 1.8 0.8 - 5.3 08/10/2022 [facility] Lymphocytes 10e3/uL 11:16 AM CDT Absolute 0.5 0.0 - 1.3 08/10/2022 [facility] Monocytes 10e3/uL 11:16 AM CDT Absolute 0.1 0.0 - 0.7 08/10/2022 [facility] Eosinophils 10e3/uL 11:16 AM CDT Absolute 0.0 0.0 - 0.2 08/10/2022 [facility] Basophils 10e3/uL 11:16 AM CDT Absolute Immature 0.0 <=0.4 08/10/2022 [facility] Granulocytes 10e3/uL 11:16 AM CDT Absolute NRBCs 0.0 10e3/uL 08/10/2022 [facility] 11:16 AM CDT Specimen Anatomical Collection Method / Collection Time Recei jose Time (Source) Location / Volume Laterality Blood STRUCTURE OF RIGHT Venipuncture / 08/10/2022 11:05 HAND / Unknown Unknown AM CDT 11:05 AM CDT Clemente Katz PA-C LAB - BLOOD ORDERABLES Performing Organization Address City/[facility]/[place] [address] Erythrocyte sedimentation rate auto (08/10/2022 11:05 AM CDT) [facility] gist Method Time Signature Erythrocyte 13 0 - 20 08/10/2022 [facility] Sedimentation Rate mm/hr 11:45 AM CDT Specimen Anatomical Collection Method / Collection Time Recei jose Time (Source) Location / Volume Laterality Blood STRUCTURE OF RIGHT Venipuncture / 08/10/2022 11:05 HAND / Unknown Unknown AM CDT 11:05 AM CDT Clemente Katz PA-C LAB - BLOOD ORDERABLES Performing Organization Address City/[facility]/[place] [address] from Last 3 Months Insurance Payer Benefit Plan / Subscriber ID Effective Dates Phone Addre ss Type Group MEDICARE MEDICARE [id number] 2012-Ariana [phone] ATTN CL AIMS Medicare nt 0 [address] [place] [address] MEDICA MEDICA ACCESS [id number] 2016-Dirk [phone] [address] [id number] H[place] t [address] [place] [address] Care Teams Branch Operations Manager Relationship Specialty Start Date End Date Clinic, [facility] PCP - General 06/03/171999 [place] [address]
--- OUTSIDE RECORDS SUMMARY | 2022-11-08 13:50 | XMS_ITS | Encounter Summary ---
:1965 Author Organization [place] Address [address] [place] [address] Care Team Providers Name Role Phone [facility] Primary Care Provide r Mor [...] on filedocumented in this encounter Care Teams Administrative Aide Relationship Specialty Start Date End Date [facility] PCP - General 06/03/17 [facility] [address] [place] [address] Mor Bautista MD Assigned Infectious Disease 06/12/2106/25 Elisabeth Porter Provider [facility] [address] [place] [address] documented as of this encounter
--- OUTSIDE RECORDS SUMMARY | 2022-11-08 13:50 | XMS_ITS | Encounter Summary ---
:1965 Author Organization [place] Address [address] [place] [address] Care Team Providers Name Role Phone [facility] Primary Care Provide r Encounter [...] on filedocumented in this encounter Care Teams Historic Sites Supervisor Relationship Specialty Start Date End Date [facility] PCP - General 06/03/171999 [place] [address] documented as of this encounter
--- OUTSIDE RECORDS SUMMARY | 2022-11-08 13:50 | XMS_ITS | Encounter Summary ---
:1965 Author Organization [place] Address [address] [place] [address]. [place] [address] Care Team Providers Name Role Phone Clinic, [facility] Primary Care Provide r Reason for Visit Reason Comments Consult pt here with her neighbor Arin calderon, Encounter Details Date Type Department Care Team Description 05/14/2021 Office Visit - [facility] Mor Bautista [facility] Sheldon Patel MD osteomyelitis of right [address] [place] [address] [address] ([address] [facility] [address] [address] [place], [place] [phone] [address] Social History Tobacco Use Types Packs/Day [...] disease history: Reviewed in the notes from [place] Medications: Reviewed prior to admission meds as [...] ?? GRAM STAIN? Gram stain performed by [place], [place] ?? Specimen Collected on Tissue - [...] this duration if possible. My cell is [id number]. I wrote for 90 days and warned pt about sunburn risk. She has hx of skin cancer. 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
--- OUTSIDE RECORDS SUMMARY | 2022-11-08 13:50 | XMS_ITS | Encounter Summary ---
:1965 Author Organization [place] Address [address] [place] [address] Care Team Providers Name Role Phone [facility] Primary Care Provide r Mor Bautista [...] filedocumented in this encounter Care Teams Wire Sawyer Relationship Specialty Start Date End Date [facility] PCP - General 06/03/17 [facility] [address] [place] [address] Mor Bautista MD Assigned Infectious Disease 06/12/2106/25 225 Mohan Porter Provider [facility] [address] [place] [address] documented as of this encounter
--- OUTSIDE RECORDS SUMMARY | 2022-11-08 13:50 | XMS_ITS | Encounter Summary ---
:1965 Author Organization [place] Address [address] [place] [address] Care Team Providers Name Role Phone [facility], [facility] Primary Care Provide r Encounter Details Date Type Department Care Team Description 04/29/2021 [facility] [...] on filedocumented in this encounter Care Teams Drill Foreman Relationship Specialty Start Date End Date [facility] PCP - General 06/03/171999 [place] [address] documented as of this encounter
--- OUTSIDE RECORDS SUMMARY | 2022-11-08 13:50 | XMS_ITS | Encounter Summary ---
:1965 Author Organization [place] Address [address] [place] [address] Care Team Providers Name Role Phone Clinic, [facility] Primary Care Provide r Reason for Visit Reason Comments Referral Other ID Encounter Details Date Type Department Care Team Description 05/11/2021 Communication - [facility] [place] Provider, Jameel howard; [facility] Special[facility] Patient Access [address] [place] [address] Social History Tobacco Use Types Packs/Day [...] AM CDT Date: 05/14/2021 Status: [facility] Time: 3:20 PM Length: 40 Visit Type: CONSULT [[id number]] Copay: $0.00 Provider: Mor Bautista MD Telephone [...] ONLY received??? 05/11/2021 12:05pm inside ID consult [facility], , Referring: Dr David Cohn, DX: status post shoulder replacement, left Order comments: Asking for HALI, this week. documented in this encounter Plan of Treatment Not on filedocumented as of this encounter Visit Diagnoses Not on filedocumented in this encounter Care Teams Manager Of Medical Relationship Specialty Start Date End Date Clinic, [facility] PCP - General 06/03/171999 [place] [address] documented as of this encounter
--- OUTSIDE RECORDS SUMMARY | 2022-11-08 13:51 | XMS_ITS | Encounter Summary ---
:1965 Author Organization [place] Address [address] [place] [address] Care Team Providers Name Role Phone [facility], [facility] Primary Care Provide r Encounter Details Date Type Department Care Team Description 03/26/2021 [facility] ProviderAlea Social History [...] on filedocumented in this encounter Care Teams Orthopedic Mechanic Relationship Specialty Start Date End Date [facility] PCP - General 06/03/171999 [place] [address] documented as of this encounter
--- OUTSIDE RECORDS SUMMARY | 2022-11-08 13:51 | XMS_ITS | Encounter Summary ---
:1965 Author Organization [place] Address [facility] [place] [address] Care Team Providers Name Role Phone Unavailable Primary Care Provider Unavailable Encounter Details Date Type Department Care Team Description 04/15/2009 Results Only [facility] Evelio Munoz MD Hospital Results [address] [place] [address] (Wo rk) Social History Tobacco [...]
--- OUTSIDE RECORDS SUMMARY | 2022-11-08 13:51 | XMS_ITS | Encounter Summary ---
:1965 Author Organization [place] Address [address] [place] [address] Care Team Providers Name Role Phone [facility] Primary Care Provide r Encounter Details Date Type Department Care Team Description 04/10/2021 [facility] ProviderAlea Social History Tobacco [...] on filedocumented in this encounter Care Teams Appliance Line Assembler Relationship Specialty Start Date End Date [facility] PCP - General 06/03/171999 [place] [address] documented as of this encounter
--- OUTSIDE RECORDS SUMMARY | 2022-11-08 13:51 | XMS_ITS | Encounter Summary ---
:1965 Author Organization [place] Address [facility] [place] [address] Care Team Providers Name Role Phone Clinic, [facility] Primary Care Provide r Reason for Visit Auth/Cert Specialty Diagnoses / Procedures Referred By Contact Refer red To Contact Surgery Diagnoses URGE AND STRESS INCONTINENCE,FEMALE STRESS INCONTINENCE Sh Periop Services Procedures CYSTOSCOPY, SLING TRANSVAGINAL [address], [address] [place] [address] Phone: Referral ID Status Reason Start Date Expiration Date Visits Requ ested Visits Authorized [id number] 1 1 Encounter Details Date Type Department Care Team Description 10/14/2017 Hospital Encounter [facility] Tesfaye, Mary Ann ss incontinence Shayne Rodrigez MD (Primary Dx) PreOP/Phase II [place] [address], UROLOGY [address] [facility] [address] [place] [address] [phone] Social History Tobacco Use Types Packs/Day Years Used Date Smoking Tobacco: Every Day Cigarettes 0.5 Smokeless Tobacco: Never Alcohol Use Standard Drinks/Week Comments No 0 (1 standard drink = 0.6 oz pure alcoho l) Sex Assigned at Date Recorded Not on file documented as of this encounter Last Filed Vital Signs Vital Sign Reading Time Taken Comments Blood Pressure 121/86 10/14/2017 4:28 PM FOOD SERVICE ORDER CLERK Pulse - - Temperature 36.6 ??C (97.8 ??F) 10/14/2017 3:00 PM FOOD SERVICE ORDER CLERK Respiratory Rate 16 10/14/2017 4:28 PM FOOD SERVICE ORDER CLERK Oxygen Saturation 98% 10/14/2017 4:28 PM FOOD SERVICE ORDER CLERK Inhaled Oxygen Concentration - - Weight 73.9 kg (163 lb) 10/14/2017 12:15 PM FOOD SERVICE ORDER CLERK Height 152.4 cm (5') 10/14/2017 12:15 PM FOOD SERVICE ORDER CLERK Body Mass Index 31.83 10/14/2017 12:15 PM FOOD SERVICE ORDER CLERK documented in this encounter Discharge Instructions Discharge InstructionsGi King RN - 10/14/2017 1:42 PM FOOD SERVICE ORDER CLERK Post Bladder Sling Instructions Dr Stafford [phone] ?? For pain you may take a narcotic/acetaminophen combination prescription for pain relief. The mostcommon pain is in the upper thighs. This usually lasts 2-3 days. You may use cold packs to this areaas needed to reduce pain and bruising. Generally fwoe-rau-zhzadnc medicines such as ibuprofen, 3-4 tablets every [...] vaginal sutures. ?? Post op appointments: Call [phone] to schedule an appointment to see your [...] know so they can address your concerns. SERVICE ORDER CLERK documented in this encounter Medications at [...] needed for muscle spasms naloxone (NARCAN) nasal [place] 4 mg into one 0 spray nostril [...] (Takes 2 x 5000 unit tablet = [address] unit dose) ZONISAMIDE PO Take 300 mg [...] and was given a new prescription for [place]. Prescription for Oxycodone shredded. Patient took hard copy of new [place] prescription with her.; SERVICE ORDER CLERK Vicki Matthews RN - 10/14/2017 3:39 PM CST Patient voided, bladder scan 450cc, encouraged patient to void again. Pt voided. Bladder scan for 100-150cc. Patient comfortable and ready to go home. SERVICE ORDER CLERK documented in this encounter Miscellaneous Notes [...] also underwent sling placement in [facility] and on exam I was able to [...] EM#[id number] Name: ANGIE MOSQUERA MRN: [id number] Account: [id number] : 1965 Procedure Date: 10/14/2017 Document: [id number] cc: Rain Stafford MD SERVICE ORDER CLERK documented in this encounter Plan of Treatment Not on filedocumented as of this encounter Procedures Procedure Name Priority Date/Time Associated Diagnosis Comme nts CREATION, VAGINAL 10/14/2017 12:46 PM URGE AND STRESS SLING, WITH CYSTOSCOPY FOOD SERVICE ORDER CLERK INCONTINENCE,FEMAL E STRESS INCONTINENCE LAB RESULT - HIM SCAN 10/11/2017 12:00 AM FOOD SERVICE ORDER CLERK EKG CARDIAC - HIM SCAN 08/15/2017 12:00 AM CDT XRAY IMAGING - HIM 07/25/2017 12:00 AM SCAN CDT documented in this encounter Results LAB RESULT - HIM SCAN (10/11/2017 12:00 AM FOOD SERVICE ORDER CLERK) Specimen (Source) Anatomical Location Collection Method [...] ciprofloxacin (CIPRO) infusion Given 10/14/2017 12:59 PM FOOD SERVICE ORDER CLERK 400 mg 400 mg Routine, 400 mg, Intravenous, PRE-OP/PRE-PROCEDURE, Starting on Tue10/14/17 at 1155, For 1 dose, Irritant., Indications: Perioperative Pharmacoprophylaxis, Pre-procedure New Bag 10/14/2017 12:26 PM FOOD SERVICE ORDER CLERK 400 mg fentaNYL (PF) (SUBLIMAZE) injection 25-5 0 mcg Given 10/14/2017 2:01 PM FOOD SERVICE ORDER CLERK 50 mcg 25-50 mcg, Intravenous, EVERY [...] 100 mcg., PACU Given 10/14/2017 1:50 PM FOOD SERVICE ORDER CLERK 50 mcg HYDROmorphone (PF) (DILAUDID) injection Given 10/14/2017 2:42 PM FOOD SERVICE ORDER CLERK 0.5 mg 0.3-0.5 mg 0.3-0.5 mg, [...] minutes., PACU/Phase II Given 10/14/2017 2:18 PM FOOD SERVICE ORDER CLERK 0.5 mg ondansetron (ZOFRAN) injection 4 mg Given 10/14/2017 2:18 PM FOOD SERVICE ORDER CLERK 4 mg 4 mg, Intravenous, EVERY [...] tablet 5 mg Given 10/14/2017 2:54 PM FOOD SERVICE ORDER CLERK 5 mg 5 mg, Oral, ONCE, On Tue10/14/17 at 1500, For 1 dose, PACU scopolamine (TRANSDERM) 72 hr Given 10/14/2017 12:43 PM FOOD SERVICE ORDER CLERK 1 pa tch Behind Left Ear patch 1 patch 1 patch, Transdermal, EVERY 72 HOURS, First dose on Tue10/14/17 at 1245, Apply patch to skin, behind ear. Remove every 72 hours. Each 1.5 mg patch delivers 1 mg of scopolamine., Pre-procedure documented in this encounter Active and Recently Administered Medications Times are shown in FOOD SERVICE ORDER CLERK. Scheduled Medication Order 10/12/2017 10/13/2017 10/14/2017 ciprofloxacin (CIPRO) infusion 400 mg (COMPLETED) 1226 (New Bag - Provider: Rona Hanks RN)1259 (Given - Provider: Gayatri Combs APRN ESE TEACHER) Routine, 400 mg, Intravenous, PRE-OP/PRE -PROCEDURE, Starting [...] RN) 0.3-0.5 mg, Intravenous, EVERY 10 MIN PA N, other, acute pain.?May administer if Respiratory [...] 1544 documented in this encounter Care Teams Sole Edge Inker Machine Relationship Specialty Start Date End Date [facility], [facility] PCP - General 06/03/171999 [place] [address] documented as of this encounter
--- OUTSIDE RECORDS SUMMARY | 2022-11-08 13:51 | XMS_ITS | Encounter Summary ---
:1965 Author Organization [place] Address [address] [place] [address] Care Team Providers Name Role Phone Amna Fletcher Primary Care Provider Reason for Visit Reason Comments Chest Wall Pain Encounter Details Date Type Department Care Team Description 07/18/2016 Emergency [facility] Radha Espana Sternal contusion, initial encounter; [facility] Emergency Dep phuong Ross MD Closed fracture of rib of right side, in itial encounter [address] [facility] [place], [place] [address] [address] [place] [address] (Wo rk) Social History Tobacco Use Types [...] your healthcare provider ?? Congested cough ?? [id number] [employer] [address] [place] [address], [place] [address]. All rights reserved. This information is not intended as a substitute for professional medical care. Always follow your healthcare professional's instructions. AttachmentsThe following attachments cannot be sent through Care Everywhere.BONE BRUISE (BONE CONTUSION), UNDERSTANDING (IRISH)documented in this encounter Medications at Time of [...] surgery Bilateral knee arthroplasty Gastric bypass Cholecystectomy Handcrew Foreman surgery Family History: History reviewed. No pertinent [...] Department Course ECG (01:17:19): Rate 69 bpm. MA interval 176. QRS duration 94. QT/QTc 408/437. [...] hours for 10 days Adrian Vera 07/18/2016 [facility] IAdrian am serving as a scribe at 1:03 AM on 07/18/2016 to document services personally performed by Radha Espana MD based on my observations and the provider's statements to me. Radha Espana MD 07/18/16 [address]04 Renea Conn RN - 07/18/2016 12:48 AM [...] EKG 12 lead (07/18/2016 1:17 AM CDT) [facility] gist Method Time Signature Interpretation ECG [...] dose documented in this encounter Care Teams Traffic Worker Relationship Specialty Start Date End Date Amna Fletcher PCP - General 07/18/16 05/16/17 [place] [address] documented as of this encounter
--- OUTSIDE RECORDS SUMMARY | 2022-11-08 13:51 | XMS_ITS | Encounter Summary ---
:1965 Author Organization [place] Address [address] [place] [address] Care Team Providers Name Role Phone Formerly [...] on filedocumented in this encounter Care Teams Billing Auditor Relationship Specialty Start Date End Date [facility]ly [facility] PCP - General 06/03/171999 [place] [address] documented as of this encounter
--- OUTSIDE RECORDS SUMMARY | 2022-11-08 13:51 | XMS_ITS | Encounter Summary ---
:1965 Author Organization [place] Address [facility] [place] [address] Care Team Providers Name Role Phone Unavailable Primary Care Provider Unavailable Encounter Details Date Type Department Care Team Description 04/15/2009 Emergency room [facility] Evelio Lamar MD Hospital Results [address] [place] [address] (Wo rk) Social History Tobacco [...] is Dr. Holley De La Rosa in [place], [place]. Her chronic pain doctor is Dr. Garcia at [facility] in [place]. Thepatient has had previous cervical and lumbar [...] Compazine. I gave her referral information for [facility] if she has further problems while she was in [place]. She plans to be here another 1-2 weeks. DISCHARGE DIAGNOSES: 1. Acute exacerbation of chronic back pains. 2. Nausea. Electronically signed on 05/01/2009 06:49 by EVELIO LAMAR MD MT: [id number] Name: KAYLIN MOSQUERA MRN: [id number] Account: [id number] : 1965 Visit Date: 04/15/2009 Document: [id number] cc: Oc De La Rosa MD documented in this encounter Plan of Treatment Not on filedocumented as of this encounter Visit Diagnoses Not on filedocumented in this encounter
--- OUTSIDE RECORDS SUMMARY | 2022-11-08 13:51 | XMS_ITS | Encounter Summary ---
:1965 Author Organization [place] Address [facility] [place] [address] Care Team Providers Name Role Phone Clinic, [facility] Primary Care Provide r Reason for Visit Auth/Cert Specialty Diagnoses / Procedures Referred By Contact Refer red To Contact Surgery Diagnoses URGE AND STRESS INCONTINENCE,FEMALE STRESS INCONTINENCE Sh Periop Services Procedures CYSTOSCOPY, SLING TRANSVAGINAL [address], [address] [place] [address] Phone: Referral ID Status Reason Start Date Expiration Date Visits Requ ested Visits Authorized [id number] 1 1 Encounter Details Date Type Department Care Team Description 10/14/2017 Surgery [facility] Tesfaye, CYSTOSCOPY ,TVT SLING [place] PeriOP Ser ashwin Rodrigez MD [address] [facility] [address] [place] [address] [facility] [phone] [place] [address] (Wo rk) Surgery Details Date/Time Status Location OR Service Patient Case Class Case Tr auma Class Type Case? 10/14/17 1:[address] [facility] Urology Same Day PM Surgery Panel [...] Comments Blood Pressure 93/59 10/14/2017 2:15 PM YEAST CAKE CUTTER Pulse - - Temperature 35.7 ??C (96.3 ??F) 10/14/2017 1:31 PM YEAST CAKE CUTTER Respiratory Rate 14 10/14/2017 2:15 PM YEAST CAKE CUTTER Oxygen Saturation 93% 10/14/2017 2:15 PM YEAST CAKE CUTTER Inhaled Oxygen Concentration - - Weight 73.9 kg (163 lb) 10/14/2017 12:15 PM YEAST CAKE CUTTER Height 152.4 cm (5') 10/14/2017 12:15 PM YEAST CAKE CUTTER Body Mass Index 31.83 10/14/2017 12:15 PM YEAST CAKE CUTTER documented in this encounter Discharge Instructions Discharge InstructionsGi King RN - 10/14/2017 1:42 PM YEAST CAKE CUTTER Post Bladder Sling Instructions Dr Stafford [phone] ?? For pain you may take a narcotic/acetaminophen combination prescription for pain relief. The mostcommon pain is in the upper thighs. This usually lasts 2-3 days. You may use cold packs to this areaas needed to reduce pain and bruising. Generally mzzq-vcx-fsshcgg medicines such as ibuprofen, 3-4 tablets every [...] vaginal sutures. ?? Post op appointments: Call [phone] to schedule an appointment to see your [...] so they can address your concerns. T CAKE CUTTER documented in this encounter Medications at Time [...] needed for muscle spasms naloxone (NARCAN) nasal [place] 4 mg into one 0 spray nostril [...] (Takes 2 x 5000 unit tablet = 50208 unit dose) ZONISAMIDE PO Take 300 mg [...] and was given a new prescription for [place]. Prescription for Oxycodone shredded. Patient took hard copy of new [place] prescription with her.; T CAKE CUTTER Vicki Matthews RN - 10/14/2017 3:39 PM CST Patient voided, bladder scan 450cc, encouraged patient to void again. Pt voided. Bladder scan for 100-150cc. Patient comfortable and ready to go home. T CAKE CUTTER documented in this encounter Miscellaneous Notes Op [...] note, she also [facility] and on exam I was able [...] and draped in the regular fashion. A 16-Setswana Lagos catheter was placed. Periurethral space was [...] MD MT: #[id number] Name: ANGIE MOSQUERA Account: [id number] : 1965 Procedure Date: 10/14/2017 Document: [id number] cc: Rain Stafford MD T CAKE CUTTER documented in this encounter Plan of Treatment Not on filedocumented as of this encounter Procedures Procedure Name Priority Date/Time Associated Diagnosis Comme nts CREATION, VAGINAL 10/14/2017 12:46 PM URGE AND STRESS SLING, WITH CYSTOSCOPY YEAST CAKE CUTTER INCONTINENCE,FEMAL E STRESS INCONTINENCE LAB RESULT - HIM SCAN 10/11/2017 12:00 AM YEAST CAKE CUTTER EKG CARDIAC - HIM SCAN 08/15/2017 12:00 AM CDT XRAY IMAGING - HIM 07/25/2017 12:00 AM SCAN CDT documented in this encounter Results LAB RESULT - HIM SCAN (10/11/2017 12:00 AM YEAST CAKE CUTTER) Specimen (Source) Anatomical Location Collection Method [...] 1:21 PM 30 mLs Operative EPINEPHrine 1:200,000 YEAST CAKE CUTTER Sit e/Surgical Site injection PRN, Starting on Tue10/14/17 at 1321, Intra-procedure ciprofloxacin (CIPRO) infusion 400 mg Given 10/14/2017 12:59 PM YEAST CAKE CUTTER 400 mg Routine, 400 mg, Intravenous, PRE-OP/PRE-PROCEDURE, Starting on Tue10/14/17 at 1155, For 1 dose, Irritant., Indications: Perioperative Pharmacoprophylaxis, Pre-procedure New Bag 10/14/2017 12:26 PM YEAST CAKE CUTTER 400 mg fentaNYL (PF) (SUBLIMAZE) injection 25-5 0 mcg Given 10/14/2017 2:01 PM YEAST CAKE CUTTER 50 mcg 25-50 mcg, Intravenous, EVERY 2 [...] 100 mcg., PACU Given 10/14/2017 1:50 PM YEAST CAKE CUTTER 50 mcg HYDROmorphone (PF) (DILAUDID) injection Given 10/14/2017 2:42 PM YEAST CAKE CUTTER 0.5 mg 0.3-0.5 mg 0.3-0.5 mg, Intravenous, [...] minutes., PACU/Phase II Given 10/14/2017 2:18 PM YEAST CAKE CUTTER 0.5 mg ondansetron (ZOFRAN) injection 4 mg Given 10/14/2017 2:18 PM YEAST CAKE CUTTER 4 mg 4 mg, Intravenous, EVERY 30 [...] tablet 5 mg Given 10/14/2017 2:54 PM YEAST CAKE CUTTER 5 mg 5 mg, Oral, ONCE, On Tue10/14/17 at 1500, For 1 dose, PACU scopolamine (TRANSDERM) 72 hr Given 10/14/2017 12:43 PM YEAST CAKE CUTTER 1 pa tch Behind Left Ear patch 1 patch 1 patch, Transdermal, EVERY 72 HOURS, First dose on Tue10/14/17 at 1245, Apply patch to skin, behind ear. Remove every 72 hours. Each 1.5 mg patch delivers 1 mg of scopolamine., Pre-procedure skin closure adhesive Given 10/14/2017 1:19 PM 1 applicator Operative (DERMABOND) vial YEAST CAKE CUTTER Site/Surgical S ite PRN, Starting on Tue10/14/17 at 1319, Intra-procedure sodium chloride 0.9% Given 10/14/2017 1:09 PM 1,000 mLs Operative (bottle) irrigation YEAST CAKE CUTTER Site/Surgical S ite PRN, Starting on Tue10/14/17 at 1309, Intra-procedure sterile water irrigation Given 10/14/2017 1:08 PM 3,000 mLs Operative (bag) YEAST CAKE CUTTER Site/Surgical S ite PRN, Intra-procedure, Starting on Tue10/14/17 at 1308, Until Tue10/14/17 at 1544 documented in this encounter Active and Recently Administered Medications Times are shown in YEAST CAKE CUTTER. Scheduled Medication Order 10/12/2017 10/13/2017 10/14/2017 ciprofloxacin (CIPRO) infusion 400 mg (COMPLETED) 1226 (New Bag - Provider: Rona Hanks RN)1259 (Given - Provider: Gayatri Combs APRN STUDENT SERVICES VICE PRESIDENT) Routine, 400 mg, Intravenous, PRE-OP/PRE -PROCEDURE, Starting [...] RN) 0.3-0.5 mg, Intravenous, EVERY 10 MIN AL N, other, acute pain.?May administer if Respiratory [...] 1544 documented in this encounter Care Teams Blurb Writer Relationship Specialty Start Date End Date Clinic, [facility] PCP - General 06/03/171999 [place] [id number] documented as of this encounter
--- OUTSIDE RECORDS SUMMARY | 2022-11-08 13:51 | XMS_ITS | Encounter Summary ---
:1965 Author Organization [place] Address [address] [place] [address] Care Team Providers Name Role Phone Unavailable Primary Care Provider Unavailable Encounter Details Date Type Department Care Team Description 04/15/2009 Historic Results INTERFACED REPORT Kai Munoz MD [address] [facility] [address] [place] [address] (Wo rk) Social History Tobacco [...]
--- OUTSIDE RECORDS SUMMARY | 2022-11-08 13:51 | XMS_ITS | Encounter Summary ---
:1965 Author Organization [place] Address [facility] [place] [address] Care Team Providers Name Role Phone Clinic, [facility] Primary Care Provide r Reason for Visit Auth/Cert Specialty Diagnoses / Procedures Referred By Contact Refer red To Contact Surgery Diagnoses URGE AND STRESS INCONTINENCE,FEMALE STRESS INCONTINENCE Sh Periop Services Procedures CYSTOSCOPY, SLING TRANSVAGINAL [address] [place] [address] Phone: Referral ID Status Reason Start Date Expiration Date Visits Requ ested Visits Authorized [id number] 1 1 Encounter Details Date Type Department Care Team Description 10/14/2017 Anesthesia Event [facility] SruthiEri rosa MD [facility] ANESTHESIA [address] [address] [facility] PeriOP Gayatri Combs, PORTAL DEVELOPER PORCELAIN TURNER [address] [address] Services [address] [place] [address] Anesthesia Record Procedure Summary Procedure Name [...] Gayatri Combs, Vicki Collins D, Injectable; Tolerated PORCELAIN TURNER RN well Retired Non-Surgical 10/14/17; 1254; Easy; 10/14/17 1254 by 09/28 06/13 1328 by Airway Intravenous; 4; mm; Gayatri Combs, Gayatri Poe, laryngeal mask airway; PORCELAIN TURNER PORTAL DEVELOPER PORCELAIN TURNER midline; Equal, clear and bilateral; PORCELAIN TURNER; hh Urethral Catheter 10/14/17; 1314; No; 10/14/17 1314 by 10/14/17 1316 by /GI/MANAGER TESTING Pelvic Usha Bar, Carole Duff, Procedure; 16 [...] MD, MD October 14, 2017 1:50 PM F NURSING OFFICER Anesthesia Preprocedure Evaluation - Mini Negro MD [...] ??? Acyclovir Rash ??? Cephalosporins Rash ??? [place] Rash Past Medical History: Diagnosis Date ??? Fibromyalgia, primary ??? Migraine ??? Osteoporosis ??? Restless leg ??? Stress incontinence ??? Uncomplicated asthma Past Surgical History: Procedure Laterality Date ??? ABDOMEN SURGERY ??? BACK SURGERY ??? CHOLECYSTECTOMY ??? MANAGER TESTING SURGERY ??? ORTHOPEDIC SURGERY Social History Substance [...] (Takes 2 x 5000 unit tablet = 55607 unit dose) Yes Reported, Patient Esomeprazole Magnesium [...] Yes Reported, Patient naloxone (NARCAN) nasal spray [place] 4 mg into one nostril alternating nostrils [...] GLC, BUN, CR, ROGER in the last 34153pqfga. No results for input(s): AST, ALT, ALKPHOS, BILITOTAL, LIPASE in the last 34390 hours. No results for input(s): WBC, HGB, PLT in the last 37007 hours. No results for input(s): ABO, RH in the last 48748 hours. No results for input(s): INR, PTT in the last 54017 hours. No results for input(s): TROPI in the last 65042 hours. No results for input(s): PH, PCO2, PO2, HCO3 in the last 02347 hours. No results for input(s): HCG in the last 27521 hours. No results found for this or any previous visit (from the past 744 hour(s)). RECENT LABS: ECG: ECHO: F NURSING OFFICER documented in this encounter Miscellaneous Notes Anesthesia [...] (Last set prior to Anesthesia Care Transfer) PORCELAIN TURNER VITALS 10/14/2017 1258 - 10/14/2017 1334 10/14/2017 Pulse: 85 SpO2: 99 % Resp Rate (observed): 8 Resp Rate (set): 10 Electronically Signed By: Gayatri Combs APRN PORCELAIN TURNER October 14, 2017 1:34 PM F NURSING OFFICER documented in this encounter Plan of Treatment Not on filedocumented as of this encounter Visit Diagnoses Not on filedocumented in this encounter Administered Medications Inactive Administered Medications - up to 3 most recent administrations Medication Order MAR Action Action Date Dose Rate Site ciprofloxacin (CIPRO) infusion Given 10/14/2017 12:59 PM CHIEF NURSING OFFICER 400 mg 400 mg Routine, 400 mg, Intravenous, PRE-OP/PRE-PROCEDURE, Starting on Tue10/14/17 at 1155, For 1 dose, Irritant., Indications: Perioperative Pharmacoprophylaxis, Pre-procedure New Bag 10/14/2017 12:26 PM CHIEF NURSING OFFICER 400 mg dexamethasone (DECADRON) injection Given 10/14/2017 1:03 PM CHIEF NURSING OFFICER 4 mg PRN, Administer over 1 Minutes, Starting on Tue10/14/17 at 1303, Anesthesia Intra-op dexmedetomidine (PRECEDEX) 4 mcg/mL bolu s Bolus 10/14/2017 1:08 PM CHIEF NURSING OFFICER 8 mcg 200 mcg, CONTINUOUS PRN, Starting on Tue10/14/17 at 1305, Anesthesia Intra-op New Bag 10/14/2017 1:05 PM CHIEF NURSING OFFICER 12 mcg fentaNYL (PF) (SUBLIMAZE) injection Given 10/14/2017 12:52 PM CHIEF NURSING OFFICER 100 mcg PRN, moderate to severe pain, Administer over 3-5 Minutes, Starting on Tue10/14/17 at 1252, Anesthesia Intra-op lactated ringers infusion New Bag 10/14/2017 12:51 PM CHIEF NURSING OFFICER Intravenous, CONTINUOUS PRN, Anesthesia Intra-op, Starting on Tue10/14/17 at 1251, Until Tue10/14/17 at 1334 lidocaine injection 2% (MDV) Given 10/14/2017 12:52 PM CHIEF NURSING OFFICER 80 mg PRN, Starting on Tue10/14/17 at 1252, Anesthesia Intra-op midazolam (VERSED) injection Given 10/14/2017 12:51 PM CHIEF NURSING OFFICER 2 mg Administer over 2 Minutes, PRN, anxiety, Starting on Tue10/14/17 at 1251, Anesthesia Intra-op ondansetron (ZOFRAN) injection Given 10/14/2017 1:03 PM CHIEF NURSING OFFICER 4 mg PRN, nausea, vomiting, Administer over 2-5 Minutes, Starting on Tue10/14/17 at 1303, Anesthesia Intra-op propofol (DIPRIVAN) infusion Rate/Dose 10/14/2017 1:14 150 mcg/kg/min 66.5 mL/hr Intravenous, CONTINUOUS PRN, Change PM CHIEF NURSING OFFICER Starting on Tue10/14/17 at 1252, Anesthesia Intra-op New Bag 10/14/2017 12:52 PM CHIEF NURSING OFFICER 200 mcg/kg/min 88.7 mL/hr propofol (DIPRIVAN) injection 10 mg/mL v ial Given 10/14/2017 1:06 PM CHIEF NURSING OFFICER 50 mg PRN, Starting on Tue10/14/17 at 1252, Anesthesia Intra-op Given 10/14/2017 12:52 PM CHIEF NURSING OFFICER 150 mg documented in this encounter Care Teams Spring Up Supervisor Relationship Specialty Start Date End Date Clinic, [facility] PCP - General 06/03/171999 [place] [address] documented as of this encounter
--- OUTSIDE RECORDS SUMMARY | 2022-11-08 13:51 | XMS_ITS | Encounter Summary ---
:1965 Author Organization [place] Address [address] [place] [address] Care Team Providers Name Role Phone Clinic, [facility] Primary Care Provide r Reason for Visit Reason Comments Back Pain Neck Pain Encounter Details Date Type Department Care Team Description 06/03/2017 Emergency [facility] Heggestad, Zoey Acute mi dline low back pain, with sciatica presence unspecified; [facility] Emergency Dep phuong Flowers PA-C Chronic neck pain [address] [facility] EM[facility] PHYSIC[facility]ANS [place], [place] [address] 2553 [facility] [phone] [place] [phone] (Wo rk) Social History Tobacco Use [...] that she received adequate care at the [facility] that she has been too. Pt reports that she left [facility] yesterday after they did not address her issues. Pt states that she would like something to take her painaway and upset that has not been receiving adequate pain control. SW explained that this principal technical writer could not provide pt with [...] Evans RN - 06/03/2017 3:41 PM CDT overhead line worker is talking with patient per patient [...] pain in her sternum.She was seen at [place] and evaluated for neck pain but left [...] and that she is seeing doctors at [facility] for evaluation. She reports that most of [...] 6 months ago when she ran into [facility]. She states that she called her pain management center, [facility], and that they [...] a history of chronic pain who sees [facility] for her prescription [...] son tells me that they went to [place] emergency room and they told the nurse that they went to [place] emergency room as well in the past few days but nobody did anything or me. Here, the patient notes that hardware in her C-spine has loosened and she is scheduled to see [facility] physician to possibly [...] patient and her son that per our [facility] pain policy she could have a dose of pain medication here orally but we were not doing IM or IV and she would not get a prescription to go home with. During the work-up, I was unaware that the patient requested to see social work and social work came down to see them and came to talk to me. The social work nurse states that the patient wanted to complain about our care to her but she had no complaints of social issues at home. overhead line worker referred her back to me. I [...] I did also speak to a P.A. environmental field office manager for [facility], [place], who [...] Region Laterality Modality Spine, [facility] MSK, [facility] CT SPINE Compu mary Tomography Specimen [...] dose documented in this encounter Care Teams Shackler Relationship Specialty Start Date End Date Clinic, [facility] PCP - General 06/03/171999 [place] [address] documented as of this encounter
--- OUTSIDE RECORDS SUMMARY | 2022-11-08 13:51 | XMS_ITS | Encounter Summary ---
:1965 Author Organization [place] Address [address] [place] [address] Care Team Providers Name Role Phone Clinic, [facility] Primary Care Provide r Encounter Details Date Type Department Care Team Description 03/20[facility] [address] [place] [address] [id number] Social History Tobacco Use Types Packs/Day Years [...] Bacterial Culture Routine (03/20/2021 6:00 AM CDT) [facility] Method Time Signature Culture STAPHYLOCOCCUS 03/27/2021 [facility] EPIDERMIDIS (A) 8:01 AM CDT [facility] Comment: Staphylococcus epidermidis Isolated from broth only Gram Stain 4+ Polymorphonuclear 03/27/2021 8:01 AM HEALTH Result leukocytes CDT [facility] Gram Stain No organisms seen 03/27/2021 8:01 AM HEALTH Result CDT [facility] Specimen Anatomical Collection Method [...] 1: Ortiz sceptible Comment: Z96.612 Clemente Blackwell [employer] [facility] ORDERABL ES Performing Organization Address City/[facility]/[place] [address] [address] [facility] Anaerobic Bacterial Culture Routine (03/20/2021 6:00 AM CDT) [facility] Method Time Signature Culture No anaerobic 03/23/2021 HEALTH organisms 7:18 AM CDT [facility] Specimen Anatomical Collection Method Collection Time Receive d Time (Source) Location / / Volume Laterality Body fluid Non-blood 03/20/2021 6:00 AM 1 specimen Collection / CDT 12:05 PM CDT (specimen) Unknown Clemente Blackwell LAB - MICRO GENERAL ORDERABL ES Performing Organization Address City/State/[place] [address] [address] [facility] (ABNORMAL) Cell count with differential fluid (03/20/2021 6:00 AM CDT) [facility] Method Time Signature Color Red 03/20/2021 [facility] 2:04 PM CDT [facility] Clarity Turbid 03/20/2021 HEALTH 2:04 PM CDT [facility] Total Nucleated 42,864 (H) 0 - 99 03/20/2021 [facility] Cells /uL 2:04 PM CDT [facility] RBC, Fluid >50,000 <50,000 03/20/2021 [facility] (A) /ul 2:04 PM CDT [facility] % Neutrophils 91 (H) <=25 % 03/20/2021 [facility] 2:04 PM CDT [facility] % Lymphocytes 8 <=78 % 03/20/2021 [facility] 2:04 PM CDT [facility] Monocyte % 1 <=71 % 03/20/2021 [facility] 2:04 PM CDT [facility] Macrophage % 03/20/2021 [facility] 2:04 PM CDT [facility] Mesothelials, 03/20/2021 [facility] Fluid 2:04 PM CDT [facility] % Eosinophils 03/20/2021 [facility] 2:04 PM CDT [facility] % Other Cells 03/20/2021 [facility] 2:04 PM CDT [facility] Specimen Anatomical Collection Method Collection Time Receive d Time (Source) Location / / Volume Laterality Body fluid BODY FLUID Non-blood 03/20/2021 6:00 AM specimen SPECIMEN / Unknown Collection / CDT 12:05 PM CDT (specimen) Unknown Narrative [facility] - 03/20/2021 2:04 PM CDT Large clot present; count may be inaccur ate. Clemente Blackwell LAB - BODY FLUIDS ORDERABLES Performing Organization Address City/State/ZIP Code [place] [address] [place] [address] [place] [address] [facility] [address], [facility] [phone] documented in this encounter Visit Diagnoses Not on filedocumented in this encounter Care Teams Force Variation Equipment Tender Relationship Specialty Start Date End Date Clinic, [facility] PCP - General 06/03/171999 [place] [address] documented as of this encounter
--- OUTSIDE RECORDS SUMMARY | 2022-11-08 13:51 | XMS_ITS | Encounter Summary ---
:1965 Author Organization [place] Address [address] [place] [address] Care Team Providers Name Role Phone [facility] [...] on filedocumented in this encounter Care Teams Sas Developer Analyst Relationship Specialty Start Date End Date [facility] PCP - General 06/03/171999 [place] [address] documented as of this encounter
--- OUTSIDE RECORDS SUMMARY | 2022-11-08 13:51 | XMS_ITS | Encounter Summary ---
:1965 Author Organization [place] Address [address] [place] [address] Care Team Providers Name Role Phone [facility], [facility] Primary Care Provide r Encounter Details Date Type Department Care Team Description [facility]/03/2021 [facility] [...] on filedocumented in this encounter Care Teams Drapery Worker Relationship Specialty Start Date End Date [facility] PCP - General 06/03/171999 [place] [address] documented as of this encounter
--- OUTSIDE RECORDS SUMMARY | 2022-11-08 13:51 | XMS_ITS | Encounter Summary ---
:1965 Author Organization [place] Address [address] [place] [address] Care Team Providers Name Role Phone Unavailable Primary Care Provider Unavailable Encounter Details Date Type Department Care Team Description 07/29/2011 Historic Notes INTERFACED REPORT Interface, Transcript onMD Social History Tobacco Use Types Packs/Day Years Used Date Smoking Tobacco: Never Assessed Sex Assigned at Date Recorded Not on file documented as of this encounter Progress Notes Interface, Construction Equipment Overhauler - 08/30/2011 5:48 PM CDT Allergies ?? [...]
--- OUTSIDE RECORDS SUMMARY | 2022-11-08 13:51 | XMS_ITS | Encounter Summary ---
:1965 Author Organization [place] Address [facility] [place] [address] Care Team Providers Name Role Phone Unavailable Primary Care Provider Unavailable Encounter Details Date Type Department Care Team Description 07/29/[address] [facility] EMERGENCY NURY CISNEROS Results [address] [place], [place] [address] Social History Tobacco Use Types Packs/Day Years Used Date Smoking Tobacco: Never Assessed Sex Assigned at Date Recorded Not on file documented as of this encounter Progress Notes Interface, Hot Top Liner Helper - 07/31/2011 10:23 AM CDT FINAL Chief [...] she recently came to the area from [place] to visit her father (approximately two weeks [...] with a friend. The patient resides in [place], and is here in the [facility] area visiting her father. The patient states that she has been smoking one pack of cigarettes per day since 1973. Her primary care physician is Dr. Holley De La Rosa in [place], [place]. \n Her chronic pain doctor is Dr. Garcia at [facility] in [place]. - Is negative for Illicit drug use, [...] MT: JOSÉ MIGUEL Name: KAYLIN MOSQUERA Account: [id number] : 1965 Visit Date: 07/29/2011 Document: [id number] documented in this encounter Plan of Treatment Not on filedocumented as of this encounter Visit Diagnoses Not on filedocumented in this encounter
--- OUTSIDE RECORDS SUMMARY | 2022-11-08 13:51 | XMS_ITS | Encounter Summary ---
:1965 Author Organization [place] Address [address] [place] [address] Care Team Providers Name Role Phone Unavailable Primary Care Provider Unavailable Reason for Visit Reason Onset Date Comments Previsit 12/11/2014 12/19/[address] Juice mackenzie Encounter Details Date Type Department Care Team Description 12/11/2014 PRE VISIT [facility] Amie, Kwan t (12/19/14 [facility] Shauna Alejo MD with Dr Humphrey) [facility] [place] [phone] [place] [phone] (Wo rk) Social History Tobacco Use Types Packs/Day Years Used Date Smoking Tobacco: Never Assessed Sex Assigned at Date Recorded Not on file documented as of this encounter Plan of Treatment Not on filedocumented as of this encounter Visit Diagnoses Not on filedocumented in this encounter
--- OUTSIDE RECORDS SUMMARY | 2022-11-08 13:51 | XMS_ITS | Encounter Summary ---
:1965 Author Organization [place] Address [address] [place] [address] Care Team Providers Name Role Phone Clinic, [facility] Primary Care Provider [phone] Reason for Visit Reason Comments Fall Encounter Details Date Type Department Care Team Description 05/17/2017 [facility]; [facility] Emergency Dep t EM[facility]Y PHYSICIANS Shoulder strain, unspecified laterality, initial encounter [address] [place], [place] [address] [employer] [phone] [place] [address] [place], [place] [address] (Wo rk) Social History Tobacco Use Types [...] contain Tylenol?? (acetaminophen), including Vicodin??, Tylenol #3??, [place]??, Lortab??, and Percocet??. You should not take [...] contain Tylenol?? (acetaminophen), including Vicodin??, Tylenol #3??, [place]??, Lortab??, and Percocet??. You should not take [...] neck fusion Reports taking tylenol 2 hrs CLERICAL ADVISER Jose Guadalupe Betancourt MD - 05/17/2017 7:20 [...] Surgical History: Abdomen surgery Back surgery Cholecystectomy CARPET LAYER HELPER surgery Orthopedic Surgery Family History: History [...] I spoke with Dr. Davis of the [facility] regarding patient's presentation, findings, [...] and the provider's statements to me. 05/17/2017 [facility] EM[facility] Jose Guadalupe Betancourt MD 05/18/17 [...] grams documented in this encounter Care Teams Vacation Planner Relationship Specialty Start Date End Date [facility], [facility] PCP - General 05/17/17 06/02/[address] [place] [address] documented as of this encounter
--- OUTSIDE RECORDS SUMMARY | 2022-11-08 13:53 | XMS_ITS | Encounter Summary ---
:1965 Author Organization [facility] Address [address], [place] [address] Care Team Providers Name Role Phone Jose Holden MD Primary Care Provider [phone] Reason for Referral Therapies (Routine) - New Request Specialty Diagnoses / Procedures Referred By Contact Refer red To Contact Diagnoses Status post revision of total replacement of right knee Donald Medley MD [address] [facility] [address] [place] [phone] Referral ID Status Reason Start Date Expiration Date Visits V isits Requested Authorized [id number] New Request 10/14/2022 10/14/2023 1 1 Scheduling Instructions Your provider has recommended an appoint ment with [facility]. You can quickly make your appointment online at [employer]/schedule. You can also call [phone] for help scheduling yo ur appointment. We suggest you call your health insurance company about your cove rage and benefits for this appointment. MANAGER Reason for Visit Reason Comments Follow-up Encounter Details Date Type Department Care Team Description 10/14/2022 Office Visit Donald Esteves Pain du e to total right knee replacement, initial encounter ([facility]) (Primary Dx); [facility] MD Screening examination for infectious dis ease; Medicine [address] [facility] Status post revision of tota l replacement of right knee [id number] [place], [place] [phone] Social History Tobacco Use Types Packs/Day Years [...] MD [address] [place], [place] [phone] (Wo rk) 12/31/2022 Appointment Orthopedics Donald Medley MD [address] [facility] [address] [place], [place] [phone] (Wo rk) Scheduled Orders [...] encounter Results C-Reactive Protein (10/14/2022 2:[address]) P athologist Signature C-Reactive <0.5 0.0 - 0.7 10/14/2022 [facility] Protein mg/dL 6:[address] LABORATORY Specimen Anatomical Collection Method / Collection Time Recei jose Time (Source) Location / Volume Laterality Blood Venipuncture / 10/14/2022 2:43 10/14/2022 2:[address]AD MANAGER Donald Medley MD LAB_1 Performing Organization Address City/State/ZIP Code Phon e Number [facility] [address] [place], [place] [phone] documented in this encounter Visit Diagnoses Diagnosis Pain due to total right knee replacement , initial encounter ([facility]C) - Primary Screening examination for infectious dis ease Screening examination for unspecified in fectious disease Status post revision of total replacemen t of right knee documented in this encounter Care Teams Tempering Oven Operator Relationship Specialty Start Date End Date Jose Holden MD PCP - General Otolaryngology 12/14/17 [place] [address] documented as of this encounter
--- OUTSIDE RECORDS SUMMARY | 2022-11-08 13:53 | XMS_ITS | Encounter Summary ---
:1965 Author Organization [facility] Address [address] [place] [address] Care Team Providers Name Role Phone Jose Holden MD Primary Care Provider [phone] Encounter Details Date Type Department Care Team Description 02/06[facility] Tony Alvarado MD FOR TX/PROCEDURE ent Pain Management [address] [place] [phone] Social History Tobacco Use Types Packs/Day Years [...] 12/02/2022 Appointment Orthopedics Donald Medley MD 16[address] [facility] 200 [place], [place] [phone] (Wo rk) 12/31/2022 Appointment Orthopedics Donald Medley MD [address] [facility] [address] [place], [place] [phone] (Wo rk) documented as of this encounter Visit Diagnoses Not on filedocumented in this encounter Care Teams Web Marketing Intern Relationship Specialty Start Date End Date Jose Holden MD PCP - General Otolaryngology 12/14/17 [place] [address] documented as of this encounter
--- OUTSIDE RECORDS SUMMARY | 2022-11-08 13:53 | XMS_ITS | Encounter Summary ---
:1965 Author Organization [facility] Address [address] [place] [address] Care Team Providers Name Role Phone Jose Holden MD Primary Care Provider [phone] Reason for Visit Reason Comments Surgery Questions Encounter Details Date Type Department Care Team Description 10/22/2022 Telephone TRIA Donald Millard MD Surgery Questions Orthopaedics & Sports 16[address] [facility] [address] [address] [place] [phone] (Wo rk) Social [...] you been seen for this recently?: na [Territory Development Manager/Appt Center: If yes, please include date and provider.] Is it okay to leave detailed message on your voicemail? YES [Territory Development Manager/Appt Center: If this call is after 3 p.m., communicate to patient: If we are not able to get back to you by the end of the day and your symptoms worsen please contact the Careline] EKEEPER ENGINEERING documented in this encounter Plan of Treatment Upcoming Encounters Date Type Specialty Care Team Description 12/02/2022 Appointment OrthopedicDonald Thomas MD 16[address] [facility] 200 [place] [phone] (Wo rk) 12/31/2022 Appointment OrthopedicDonald Thomas MD [address] [facility] [address] [place] [phone] (Wo rk) documented as of this encounter Visit Diagnoses Not on filedocumented in this encounter Care Teams Booster Pump Oiler Relationship Specialty Start Date End Date Jose Holden MD PCP - General Otolaryngology 12/14/17 [facility] JANESSA [place], [place] [phone] documented as of this encounter
--- OUTSIDE RECORDS SUMMARY | 2022-11-08 13:53 | XMS_ITS | Encounter Summary ---
:1965 Author Organization [facility] Address [address] [place] [address] Care Team Providers Name Role Phone Jose Holden MD Primary Care Provider [phone] Encounter Details Date Type Department Care Team Description 03/06/[facility] Tony Alvarado MD [facility] ent Pain Management [address] TREATMENT [address] [place] [phone] Social History Tobacco Use Types Packs/Day Years [...] 12/02/2022 Appointment Orthopedics Donald Medley MD [address] [facility] 200 [place], [place] [phone] (Wo rk) 12/31/2022 Appointment Orthopedics Donald Medley MD [address] [facility] 200 [place], [place] [phone] (Wo rk) documented as of this encounter Visit Diagnoses Not on filedocumented in this encounter Care Teams Podiatrist Assistant Relationship Specialty Start Date End Date Jose Holden MD PCP - General Otolaryngology 12/14/17 [place] [address] documented as of this encounter
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
--- OUTSIDE RECORDS SUMMARY | 2022-11-08 13:53 | XMS_ITS | Encounter Summary ---
:1965 Author Organization [facility] Address [address] [place] [address] Care Team Providers Name Role Phone Jose Holden MD Primary Care Provider [phone] Reason for Visit Reason Comments Medication Request Encounter Details Date Type Department Care Team Description 12/08/2019 Telephone Careline Unknown, Physician Medication Request [address] [place], [place] [address] [place], [place] [phone] (Wo rk) Social History Tobacco Use Types [...] pain medication. Pt advised to surgeon at [place]. FALLER documented in this encounter Plan of Treatment Upcoming Encounters Date Type Specialty Care Team Description 12/02/2022 Appointment Orthopedics Donald Medley MD [address] [facility] 200 [place], [place] [phone] (Wo rk) 12/31/2022 Appointment Orthopedics Donald Medley MD [address] [facility] [address] [place] [phone] (Wo rk) documented as of this encounter Visit Diagnoses Not on filedocumented in this encounter Care Teams Retail Team Leader Relationship Specialty Start Date End Date Jose Holden MD PCP - General Otolaryngology 12/14/[address] [place] [phone] documented as of this encounter
--- OUTSIDE RECORDS SUMMARY | 2022-11-08 13:53 | XMS_ITS | Encounter Summary ---
:1965 Author Organization [facility] Address [address] [place] [address] Care Team Providers Name Role Phone Jose Holden MD Primary Care Provider [phone] Reason for Visit Reason Comments Revisit Bilateral cervical/thoracic trigger point injections Encounter Details Date Type Department Care Team Description 08/14/2018 Office Visit [facility] occipital neuralgia (Primary Dx); [facility] Pain RMD Myalgia; Management [address] H/O cervical spinal arthrodesis [address] [place] [phone] Social History Tobacco Use Types Packs/Day Years [...] Pittman MD - 08/14/2018 3:00 PM CDT [facility] Follow-up Visit 08/14/2018 Interim history: [...] ??? medical cannabis patient certified Take 1 [place] by mouth . ??? naloxone (NARCAN) 4 [...] Gain No facility-administered medications prior to visit. [place] and CT Prescription Monitoring Program reviewed Allergies: [...] in her mother. Social history:she lives in [place], [place].she is not currently working. Smokin/2 ppd. [...] [facility] This document serves as a record of services personally performed by Tony Pittman MD. It was created on his behalf by Gillian Harding, a trained medical photographer. The creation of this record is based on the scribe's personal observations and the provider's statements to her. The document has been checked and approved by the attending provider. documented in this encounter Plan of Treatment Upcoming Encounters Date Type Specialty Care Team Description 12/02/2022 Appointment Orthopedics Donald Medley MD [address] [facility] [address] [facility] [address] [place] [phone] (Wo rk) 12/31/2022 Appointment Orthopedics Donald Medley MD [address] [facility] [address] [place] [address] [place] [phone] (Wo rk) documented as of this encounter Visit Diagnoses Diagnosis Bilateral occipital neuralgia - Primary Myalgia Mylagia and myositis, unspecified H/O cervical spinal arthrodesis Arthrodesis status documented in this encounter Care Teams City Clerk Relationship Specialty Start Date End Date Jose Holden MD PCP - General Otolaryngology 12/14/17 [place] [address] documented as of this encounter
--- OUTSIDE RECORDS SUMMARY | 2022-11-08 13:53 | XMS_ITS | Encounter Summary ---
:[address] [facility] Address [address] [address] Care Team Providers Name Role Phone Jose Holden MD Primary Care Provider [phone] Encounter Details Date Type Department Care Team Description 08/14/[facility]Treat [facility] Tony Alvarado MD FOR TX/PROCEDURE ent Pain Management [address] [place] [phone] Social History Tobacco Use Types Packs/Day Years [...] 12/02/2022 Appointment Orthopedics Donald Medley MD [address] [facility] 200 [place], [place] [phone] (Wo rk) 12/31/2022 Appointment Orthopedics Donald Medley MD [address] [facility] [address] [place], [place] [phone] (Wo rk) documented as of this encounter Visit Diagnoses Not on filedocumented in this encounter Care Teams Brand Designer Relationship Specialty Start Date End Date Jose Holden MD PCP - General Otolaryngology 12/14/17 [place] [address] documented as of this encounter
--- OUTSIDE RECORDS SUMMARY | 2022-11-08 13:53 | XMS_ITS | Encounter Summary ---
:1965 Author Organization [facility] Address [address] [place] [address] Care Team Providers Name Role Phone Jose Holden MD Primary Care Provider [phone] Encounter Details Date Type Department Care Team Description 12/26/2018 Consent for [facility] Toya, CONSENT FOR Procedure/[facility] Tony Alvarado MD PROCEDURE ent Pain Management [address] [place] [address] [phone] Social History Tobacco Use Types Packs/Day Years [...] 12/02/2022 Appointment Orthopedics Donald Medley MD [address] [phone] (Wo rk) 12/31/2022 Appointment Orthopedics Donald Medley MD [address] [facility] 200 [place], [place] [phone] (Wo rk) documented as of this encounter Visit Diagnoses Not on filedocumented in this encounter Care Teams Carry In Worker Relationship Specialty Start Date End Date Jose Holden MD PCP - General Otolaryngology 12/14/17 [place] [address] documented as of this encounter
--- OUTSIDE RECORDS SUMMARY | 2022-11-08 13:53 | XMS_ITS | Encounter Summary ---
:1965 [facility] Address [address], [place] [address] Care Team Providers Name Role Phone Jose Holden MD Primary Care Provider Reason for Referral Procedure/Equipment (Routine) - Closed Specialty Diagnoses / Procedures Referred By Contact Refer red To Contact Diagnoses Intractable acute post-traumatic headache Blanka Mead APRN, CN P [address] [place] [address] Referral ID Status Reason Start Date Expiration Date Visits Requ ested Visits Authorized [id number] Closed 02/16/2019 05/17/2020 1 1 Scheduling Instructions . herapies (Routine) - Closed Specialty Diagnoses / Procedures Referred By Contact Refer red To Contact Diagnoses Impairment of balance Dizziness Blanka Mead APRN, CN P [address] [place] [address] Referral ID Status Reason Start Date Expiration Date Visits Requ ested Visits Authorized [id number] Closed 02/16/2019 04/17/2019 1 1 Scheduling Instructions Your provider has recommended an appoint ment with a [facility] Physical Therapist. Please stop at the clinic check out desk for assistance with scheduling or if you prefer to call for your appointment you may call [facility] at [phone]. We suggest you call your [facility] insurance company about your coverage and benefits for this appointment. Reason for Visit Reason Comments Consult, New Patient Consult/Transfer Care (Routine) - Closed Specialty Diagnoses / Procedures Referred By Contact Refer red To Contact Diagnoses Traumatic brain injury, without loss of consciousness, initial encounter (HRC) Tony Pittman MD [address] [place] [address] Referral ID Status Reason Start Date Expiration Date Visits Requ ested Visits Authorized [id number] Closed 12/26/2018 03/26/2020 1 1 Encounter Details Date Type Department Care Team Description 02/16/2019 Office Visit [facility], Impairment of balance (Primary Dx); [facility] Blanka zaldivar; Physical Medicine NIKKY Chavez, Intractable acute post-traum atic headache [address] [place] [address] 295 [facility] [phone] [place] [address] Social History Tobacco Use Types [...] Body Mass Index 33.01 12/26/2018 1:48 PM GLOBAL EXPANSION SALES DIRECTOR documented in this encounter Patient Instructions [...] If you need to reschedule, please call [phone] as soon as you know you will not be able to make the appointment. If you have any questions or concerns, please call the clinic at [phone]. ?? If tests are needed, you will [...] treatment plan is please contact us at [phone] or send us a secure message via [employer]. If you need follow-up in the future, please call [phone] for an appointment. If you cannot get a time that satisfies you, please let us know what times work for you and we will do our best to accommodate you. Thank you for choosing Blanka Mead APRN, CNP and [facility] Physical Medicine and Rehabilitation. documented in [...] ER right away. She was seen at [facility]. According to the note from [facility]: the patient fell approximately 20 hours before being seenon 11/10/2018 with a presentation of headache neck pain left shoulder pain left knee pain left hip pain out of proportion to the mechanism of injury. The patient's a 53-year-old female well-known to [facility] with multiple comorbid medical and psychosocial [...] [facility]. She has a past medical [...] ??? medical cannabis patient certified Take 1 [place] by mouth . ??? naloxone (NARCAN) 4 [...] able to review her head CT from [facility] as well as her cervical spine CT. Findings obtained by [place] on 11/10/2018 showed CSF spaces within normal [...] Description 12/02/2022 Appoint[place] [address] [place] [address] [address] [place] [phone] (Babatunde billings) 12/31/2022 Appointment Orthopedics Donald Medley MD [address] [facility] 200 [place], [place] [phone] (Babatunde billings) Scheduled Referrals [...] headache documented in this encounter Care Teams Department Operations Manager Relationship Specialty Start Date End Date Jose Holden MD PCP - General Otolaryngology 12/14/17 [address] [place] [address] documented as of this encounter
--- OUTSIDE RECORDS SUMMARY | 2022-11-08 13:53 | XMS_ITS | Encounter Summary ---
:1965 Author Organization [facility] Address [address], [place] [address] Care Team Providers Name Role Phone Jose Holden MD Primary Care Provider [phone] Encounter Details Date Type Department Care Team Description 11/10/2018 Emergency Room External to External, Provid er FALL/HEADACHE NECK LT No address [place] [address] Social History Tobacco Use Types Packs/Day Years [...] Appointment Orthopedics Donald Medley MD [address] [phone] (Wo rk) 12/31/2022 Appointment Orthopedics Donald Medley MD [address] [facility] [address] [place], [place] [phone] (Wo rk) documented as of this encounter Visit Diagnoses Not on filedocumented in this encounter Care Teams Paint Dipper Relationship Specialty Start Date End Date Jose Holden MD PCP - General Otolaryngology 12/14/[address] [facility] [place], [place] [phone] documented as of this encounter
--- OUTSIDE RECORDS SUMMARY | 2022-11-08 13:53 | XMS_ITS | Encounter Summary ---
:1965 Author Organization [facility] Address [address] [place] [address] Care Team Providers Name Role Phone Jose Holden MD Primary Care Provider [phone] Encounter Details Date Type Department Care Team [...] Description 12/02/2022 Appoint[place] [address] [place] [address] [address] [place] [phone] (Wo rk) 12/31/2022 Appointment Orthopedics Donald Medley MD [address] [facility] [address] [place], [place] [phone] (Wo rk) documented as of this encounter Procedures Procedure Name Priority Date/Time Associated Diagnosis Comme nts CT SCAN SPINE--SCAN 11/10/2018 12:00 AM R esults for this CARDIOVASCULAR SONOGRAPHER procedure are i n the results section. documented in this encounter Results CT SCAN SPINE--SCAN (11/10/2018 12:00 AM CARDIOVASCULAR SONOGRAPHER) Anatomical Region Laterality Modality Other Specimen (Source) Anatomical Location Collection Method / Collectio n Time Received Time / Laterality Volume 11/10/2018 Narrative This result has an attachment that is no t available. Phy No Primary/Referring DUMMY/OTHER/AR documented in this encounter Visit Diagnoses Not on filedocumented in this encounter Care Teams Animal Caretaker Relationship Specialty Start Date End Date Jose Holden MD PCP - General Otolaryngology 12/14/17 [facility] [place] [address] documented as of this encounter
--- OUTSIDE RECORDS SUMMARY | 2022-11-08 13:53 | XMS_ITS | Encounter Summary ---
:1965 Author Organization [facility] Address [address], [place] [address] Care Team Providers Name Role Phone Jose Holden MD Primary Care Provider [phone] Reason for Referral Consult/Transfer Care (Routine) - Closed Specialty Diagnoses / Procedures Referred By Contact Refer red To Contact Diagnoses Traumatic brain injury, without loss of consciousness, initial encounter (HRC) Tony Pittman MD [address] [place] [address] Referral ID Status Reason Start Date Expiration Date Visits Requ ested Visits Authorized [id number] Closed 12/26/2018 03/26/2020 1 1 Scheduling Instructions Your provider [facility]. You may call [phone] to schedule your appointment. If you prefer, a scheduler conveyor will [facility] the next 3 business days to assist you in setting up this appointment. IT SUPPORT COUNSELOR Reason for Visit Reason Comments Revisit Bilateral cervical/thoracic trigger point injections Encounter Details Date Type Department Care Team Description 12/26/2018 Office Visit Tony Huggins occipital neuralgia (Primary Dx); [facility] Pain RMD Myalgia; Management [address] H/O cervical spinal arthrodesis; [address] [place], [place] Traumatic brain injury, with out loss of consciousness, initial encounter (HRC) [place] [phone] Social History Tobacco Use Types Packs/Day Years [...] Comments Blood Pressure 115/72 12/26/2018 2:48 PM CREDIT SUPPORT COUNSELOR Pulse 70 12/26/2018 2:48 PM CREDIT SUPPORT COUNSELOR Temperature - - Respiratory Rate - - [...] treatment plan is, please contact me via [employer] online messaging or call the office at and ask to speak to a nurse. Tony Pittman MD Pain Medicine IT SUPPORT COUNSELOR documented in this encounter Progress Notes Tony Pittman MD - 12/26/2018 2:15 PM CST [facility] Follow-up Visit 08/14/2018 Interim [...] Patient continues to get chronic oxycodone from [facility] in [place] and does not planon decreasing her dosage. [...] Oxycodone 5 mg Q6H - Prescribes by [facility], has been taking for [...] at a pain clinic in the past. [facility] physical therapy: Past Acupuncture: [...] ??? medical cannabis patient certified Take 1 [place] by mouth . ??? naloxone (NARCAN) 4 [...] Gain No facility-administered medications prior to visit. [place] and CT Prescription Monitoring Program reviewed Allergies: [...] in her mother. Social history:she lives in [place], [place].she is not currently working. Smokin/2 ppd. [...] traumatic brain injury clinic. 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 Patient education: [...] Pain Medicine Physical Medicine and Rehabilitation [facility] This document serves as a record of services personally performed by Tony Pittman MD. It was created on his behalf by Gillian Harding, a trained emergency medicine medical director. The creation of this record is based on the scribe's personal observations and the provider's statements to her. The document has been checked and approved by the attending provider. IT SUPPORT COUNSELOR documented in this encounter Plan of Treatment Upcoming Encounters Date Type Specialty Care Team Description 12/02/2022 Appointment Orthopedics Donald Medley MD [facility] [facility] [address] [place], [place] [phone] (Wo manuelito) 12/31/2022 Appointment [...] (HRC) documented in this encounter Care Teams Post Tensioning Ironworker Helper Relationship Specialty Start Date End Date Jose Holden MD PCP - General Otolaryngology 12/14/[address] [place] [address] documented as of this encounter
--- OUTSIDE RECORDS SUMMARY | 2022-11-08 13:53 | XMS_ITS | Encounter Summary ---
:1965 Author Organization [facility] Address [address], [place] [address] Care Team Providers Name Role Phone Jose Holden MD Primary Care Provider [phone] Reason for Visit Reason Comments Injection Encounter Details Date Type Department Care Team Description 09/04/2018 Telephone [facility] Pete Gonzalez MD Injection Center Neurosurgery/Ortho [address] [facility] Spine [place], [place] [address] [address] [place] [address] [phone] Social History Tobacco Use Types Packs/Day Years [...] Appointment Orthopedics Donald Medley MD [address] [facility] [address] [phone] (Wo manuelito) 12/31/2022 Appointment OrthopedicDonald Thomas MD [address] [facility] [address] [phone] (Wo rk) documented as of this encounter Visit Diagnoses Diagnosis Neck pain - Primary Cervicalgia documented in this encounter Care Teams District Claims Manager Relationship Specialty Start Date End Date Jose Holden MD PCP - General Otolaryngology 12/14/17 [place] [address] documented as of this encounter
--- OUTSIDE RECORDS SUMMARY | 2022-11-08 13:53 | XMS_ITS | Encounter Summary ---
:1965 Author Organization [facility] Address [address], [place] [address] Care Team Providers Name Role Phone Jose Holden MD Primary Care Provider [phone] Reason for Referral Procedure/Equipment (Routine) - Closed Specialty Diagnoses / Procedures Referred By Contact Refer red To Contact Diagnoses Dizziness Concussion with loss of consciousness of 30 minutes or less, subsequent encounter Alyse Carias, PT [address] [place] [address] Referral ID Status Reason Start Date Expiration Date Visits Requ ested Visits Authorized [id number] Closed 03/06/2019 06/04/2020 20 20 Scheduling Instructions . Reason for Visit Reason Comments Concussion Therapies (Routine) - Closed Specialty Diagnoses / Procedures Referred By Contact Refer red To Contact Diagnoses Impairment of balance Dizziness Blanka Mead, APPLICATIONS SCIENTIST, CN P [address] [place] [address] Referral ID Status Reason Start Date Expiration Date Visits Requ ested Visits Authorized [id number] Closed 02/16/2019 04/17/2019 1 1 Encounter Details Date Type Department Care Team Description 03/06/2019 Office Visit Alyse Bee Dizziness (Primary Dx); Neuroscience Center A, PT Concussion with loss of consciousness of 30 minutes or less, subsequent encounter Physical Therapy [address] [place] [address] Social History Tobacco Use Types Packs/Day [...] in dizziness, balance (to be further assessed), HEZROG, [place]. She is appropriate for skilled PT [...] impacting her status (scheduled for surgery at [place] on 02/28/19). Tinnitus- scheduled for hearing assessment [...] She was seen at [facility]. ?? She has a past [...] limited function due to PMH Lives in [place]. Independent with ADLs, driving. Current Level of Function: Currently not-employed. Lives alone in apartment. Difficulty bending down She does endorse LOS in home setting. Previous Therapy for This Condition: PT for neck (01/23/19- refaxed orders) Patient Goals: Return to previous level of function and Increased function OBJECTIVE Posture/Observations: alert, oriented, cooperative. forward head posturing. Carrying multiple bags and able to pick out hand from floor to chair without LOS. Functional [...] within her allowable cervical ROM). Access Code: [email or web address] URL: [email or web address] Date: 03/06/2019 Prepared by: Alyse Carias Exercises [...] 12/02/2022 Appointment Orthopedics Donald Medley MD 16[address] [facility] [address] [place], [place] [phone] (Wo rk) 12/31/2022 Appointment Orthopedics Donald Medley MD 16[address] [facility] [address] [place], [place] [phone] (Babatunde billings) Scheduled Referrals [...] encounter documented in this encounter Care Teams Visual Display Manager Relationship Specialty Start Date End Date Jose Holden MD PCP - General Otolaryngology 12/14/17 [place] [phone] documented as of this encounter
--- OUTSIDE RECORDS SUMMARY | 2022-11-08 13:53 | XMS_ITS | Encounter Summary ---
:1965 Author [facility] Address [address], [place] [address] Care Team Providers Name Role Phone Jose Holden MD Primary Care Provider [phone] Encounter Details Date Type Department Care Team Description 11/10/2018 Orders Only External to Pete Gonzalez MD [address] [place] [address] (Wo rk) Social History Tobacco [...] 12/02/2022 Appointment Orthopedics Donald Medley MD [address] [phone] (Wo rk) 12/31/2022 Appointment Orthopedics Donald Medley MD [address] [facility] 200 [place], [place] [phone] (Wo rk) documented as of this encounter Procedures Procedure Name Priority Date/Time Associated Diagnosis Comme nts CT SCAN SPINE--SCAN 11/10/2018 12:00 AM R esults for this MARINE PAINTER procedure are i n the results section. documented in this encounter Results CT SCAN SPINE--SCAN (11/10/2018 12:00 AM MARINE PAINTER) Anatomical Region Laterality Modality Other Specimen (Source) Anatomical Location Collection Method / Collectio n Time Received Time / Laterality Volume 11/10/2018 Narrative This result has an attachment that is no t available. Pete Gonzalez MD DUMMY/OTHER/AR documented in this encounter Visit Diagnoses Not on filedocumented in this encounter Care Teams Client Services Associate Relationship Specialty Start Date End Date Jose Holden MD PCP - General Otolaryngology 12/14/17 [facility] [place] [address] documented as of this encounter
--- OUTSIDE RECORDS SUMMARY | 2022-11-08 13:53 | XMS_ITS | Encounter Summary ---
:1965 Author [facility] Address [address] [address] Care Team Providers Name Role Phone Jose Holden MD Primary Care Provider [phone] Reason for Referral Procedure/Equipment (Routine) - Incomplete Specialty Diagnoses / Procedures Referred By Contact Refer red To Contact Diagnoses Pain due to total right knee replacement, initial encounter (HRC) Donald Medley MD Procedures CT Knee Rt WO IV Cont [facility] [facility] [address] [place] [address] Referral ID Status Reason Start Date Expiration Date Visits V isits Requested Authorized [id number] Incomplete 10/07/2022 01/06/2024 1 1 MENT REVIEW SPECIALIST Reason for Visit Reason Comments KNEE PAIN Encounter Details Date Type Department Care Team Description 10/07/2022 Office Visit Donald Esteves, Pain du e to total Orthopaedics & Sports right knee Medicine 1601 [facility] [place] [address] encounter (HRC) [place], [place] (Primary Dx) [phone] Social History Tobacco Use Types Packs/Day Years [...] Orthopedics Donald Medley MD [address] [facility] [address] [phone] (Wo rk) 12/31/2022 Appointment Orthopedics Donald Medley MD [facility] [facility] [address] [phone] (Wo rk) documented as of this encounter Results CT Knee Rt WO IV Cont (10/13/2022 11:28 AM DOCUMENT REVIEW SPECIALIST) Anatomical Region Laterality Modality Lower Extremity, Knee, Leg, Skeletal, Thigh Computed Tomography Specimen (Source) Anatomical Collection Method Collection Time Re ceived Time Location / / Volume Laterality 10/13/2022 11:16 AM DOCUMENT REVIEW SPECIALIST Impressions 10/13/2022 11:52 AM DOCUMENT REVIEW SPECIALIST COMPARISON: None TECHNIQUE: Axial CT images through [...] (HRC) documented in this encounter Care Teams Television Writer Relationship Specialty Start Date End Date Jose Holden MD PCP - General Otolaryngology 12/14/17 [address] [place] [address] documented as of this encounter
--- OUTSIDE RECORDS SUMMARY | 2022-11-08 13:53 | XMS_ITS | Encounter Summary ---
:1965 Author Organization [facility] Address [address] [address] Care Team Providers Name Role Phone Jose Holden MD Primary Care Provider [phone] Reason for Referral Therapies (Routine) - Closed Specialty Diagnoses / Procedures Referred By Contact Refer red To Contact Diagnoses S/P cervical spinal fusion Pete Gonzalez MD [facility] [address] [place] [address] Referral ID Status Reason Start Date Expiration Date Visits Requ ested Visits Authorized [id number] Closed 12/26/2018 02/24/2019 1 1 Scheduling Instructions Your provider has recommended an appoint ment with a [facility] Physical Therapist. Please stop at the clinic check out desk for assistance with scheduling or if you prefer to call for your appointment you may call [facility] at [phone]. We suggest you call your doctors hospital insurance company about your coverage and benefits for this appointment. ER NICKEL Reason for Visit Reason Comments Revisit Encounter Details Date Type Department Care Team Description 12/26/2018 Office Visit [facility] Pete Gonzalez, S/P miguelito nj spinal [facility] fusion (Primary Dx) Neurosurgery/Ortho [address] [facility] [address] [place] [address] [place] [address] [phone] Social History Tobacco Use Types Packs/Day Years [...] Comments Blood Pressure 115/72 12/26/2018 1:48 PM BUFFER NICKEL Pulse 70 12/26/2018 1:48 PM BUFFER NICKEL Temperature 36.5 ??C (97.7 ??F) 12/26/2018 1:48 PM BUFFER NICKEL Respiratory Rate - - Oxygen Saturation - - Inhaled Oxygen Concentration - - Weight 71.2 kg (157 lb) 12/26/2018 1:48 PM BUFFER NICKEL Height 152.4 cm (5') 12/26/2018 1:48 PM BUFFER NICKEL Body Mass Index 30.66 12/26/2018 1:48 PM BUFFER NICKEL documented in this encounter Patient Instructions Patient [...] your understanding. Please call the Neurosurgery Center [phone] with any further questions or concerns or if your symptoms worsen. Thank you for coming to see us today. We are your partner. ER NICKEL documented in this encounter Progress Notes Pete [...] at her current physical therapy Center at [facility] and also continued pain management in [...] prone to typos and grammatical errors. ER NICKEL documented in this encounter Plan of Treatment Upcoming Encounters Date Type Specialty Care Team Description 12/02/2022 Appointment Orthopedics Donald Medley MD 1601 [facility] [address] [place] [phone] (Babatunde billings) 12/31/2022 Appointment Donald Goldsmith MD [facility]01 [facility] [address] [place] [phone] (Babatunde billings) Scheduled Referrals Name Type Priority Associated Diagnoses Order S chedule Physical Therapy Referral Routine S/P cervical spinal fusi on Ordered: 12/26/2018 documented as of this encounter Visit Diagnoses Diagnosis S/P cervical spinal fusion - Primary Arthrodesis status documented in this encounter Care Teams Cloth Shrinking Machine Operator Relationship Specialty Start Date End Date Jose Holden MD PCP - General Otolaryngology 12/14/17 [place] [address] documented as of this encounter
--- OUTSIDE RECORDS SUMMARY | 2022-11-08 13:53 | XMS_ITS | Encounter Summary ---
:1965 Author Organization [facility] Address [address], [place] [address] Care Team Providers Name Role Phone Jose Holden MD Primary Care Provider [phone] Reason for Visit Reason Comments Revisit repeat injections Occipital VS Trigger point Encounter Details Date Type Department Care Team Description 02/06/2019 Office Visit [facility] Bilateral occ ipital neuralgia (Primary Dx); Neuroscience Center Carole Bowden Myalgia; Pain Management [address] Fibromyalgia; [address] [place], [place] Cervical vertebral fusion; [place], [place] [address] Spondylosis of cervical region without m yelopathy or radiculopathy [phone] Social History Tobacco Use Types Packs/Day Years [...] treatment plan is, please contact me via Thinker Thing online messaging or call the office at [...] Oxycodone 5 mg Q6H - Prescribes by [facility], has been [...] at a pain clinic in the past. [facility] physical therapy: [...] ??? medical cannabis patient certified Take 1 [place] by mouth . ??? naloxone (NARCAN) 4 [...] facility-administered medications prior to visit. [place] and [place] Prescription Monitoring Program reviewed Allergies: [...] in her mother. Social history:she lives in [place], [place].she is not currently working. Smokin/2 ppd. [...] These are unchanged from previous. 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 Patient education: I [...] MD Pain Medicine [facility] This note created using speech-recognition software and may contain unintended word substitutions. documented in this encounter Plan of Treatment Upcoming Encounters Date Type Specialty Care Team Description 12/02/2022 Appointment Orthopedics Donald Medley MD 1601 [facility] [address] [place] [phone] (Wo rk) 12/31/2022 Appointment Orthopedics Donald Medley MD 16[address] [facility] [address] [place] [phone] (Wo rk) documented as of this encounter Visit Diagnoses Diagnosis Bilateral occipital neuralgia - Primary Myalgia Mylagia and myositis, unspecified Fibromyalgia Mylagia and myositis, unspecified Cervical vertebral fusion Klippel-Feil syndrome Spondylosis of cervical region without m yelopathy or radiculopathy (HRC) Cervical spondylosis without myelopathy documented in this encounter Care Teams Dishing Machine Operator Relationship Specialty Start Date End Date Jose Holden MD PCP - General Otolaryngology 12/14/17 [place] [address] documented as of this encounter
--- OUTSIDE RECORDS SUMMARY | 2022-11-08 13:53 | XMS_ITS | Encounter Summary ---
:1965 Author Organization [facility] Address [address], [place] [address] Care Team Providers Name Role Phone Jose Holden MD Primary Care Provider [phone] Encounter Details Date Type Department Care Team Description 04/09/2019 Notes/Orders [facility] Neuroscience Jose Carias, [place] Physical Therapist Clinic Director apy PT [address] [place] [address] [place] [address] [phone] (Wo rk) Social History Tobacco Use Types [...] CDT PHYSICAL THERAPY DISCHARGE NOTE Angie Mosquera [id number] Payor: MEDICARE / Plan: MEDICARE / Product [...] 12/02/2022 Appointment Orthopedics Donald Medley MD [address] [facility] [address] [place] [phone] (Wo rk) 12/31/2022 Appointment Orthopedics Donald Medley MD [address] [facility] [address] [phone] (Wo rk) documented as of this encounter Visit Diagnoses Not on filedocumented in this encounter Care Teams Police Sergeant Precinct Relationship Specialty Start Date End Date Jose Holden MD PCP - General Otolaryngology 12/14/17 [address] [place], [place] [phone] documented as of this encounter
--- OUTSIDE RECORDS SUMMARY | 2022-11-08 13:53 | XMS_ITS | Encounter Summary ---
:1965 [facility] Address [address] [place] [address] Care Team Providers Name Role Phone Jose Holden MD Primary Care Provider [phone] Reason for Visit Reason Comments Surgery Questions Encounter Details Date Type Department Care Team Description 10/15/2022 Telephone TRIA Donald Millard MD Surgery Questions Orthopaedics & Sports 1601 [facility] [address] [address] [place] [phone] (Wo rk) Social [...] Surgery scheduled. Packet mailed. Thank you CD ION GATEMAN Su Benavidez - 10/15/2022 3:33 PM CST Patient is wanting a call back to schedule surgery with Dr. Medley. She is hoping to have the date available soon with the holidays coming up. Please call when able. ION GATEMAN documented in this encounter Plan of Treatment Upcoming Encounters Date Type Specialty Care Team Description 12/02/2022 Appointment Orthopedics Donald Medley MD [facility] [facility] [address] [place] [phone] (Wo rk) 12/31/2022 Appointment Orthopedics Donald Medley MD [facility] [facility] [address] [place] [phone] (Wo rk) documented as of this encounter Visit Diagnoses Not on filedocumented in this encounter Care Teams Personal Banking Assistant Relationship Specialty Start Date End Date Jose Holden MD PCP - General Otolaryngology 12/14/17 [facility] [place] [address] documented as of this encounter
--- OUTSIDE RECORDS SUMMARY | 2022-11-08 13:53 | XMS_ITS | Encounter Summary ---
:1965 Author [facility] Address [address] [place] [address] Care Team Providers Name Role Phone Jose Holden MD Primary Care Provider [phone] Reason for Visit Reason Comments Revisit trigger point injections/occ ipital nerve blocks Encounter Details Date Type Department Care Team Description 03/06/2019 Office Visit [facility] Bilateral occ ipital neuralgia (Primary Dx); Neuroscience Center Carole Bowden Myalgia; Pain Management [address] Cervical vertebral fusion; [address] [place], [place] Spondylosis of cervical princess on without myelopathy or radiculopathy [place], [place] [id number] Social History Tobacco Use Types Packs/Day [...] treatment plan is, please contact me via MyTinks online messaging or call the office at and ask to speak to a nurse. Tony Pittman MD Pain Medicine documented in this encounter Progress Notes Tony Pittman MD - 03/06/2019 2:45 PM CDT [facility] Follow-up Visit 03/06/2019 Interim [...] Oxycodone 5 mg Q6H - Prescribes by [facility], has been taking for [...] at a pain clinic in the past. [facility] physical therapy: Past Acupuncture: [...] ??? medical cannabis patient certified Take 1 [place] by mouth . ??? naloxone (NARCAN) 4 [...] facility-administered medications prior to visit. [place] and [place] Prescription Monitoring Program reviewed Allergies: [...] in her mother. Social history:she lives in [place], [place].she is not currently working. Smokin/2 [...] limited. Significant posterior surgical deformity of neck. Electricians Top Helper to palpation bilateral levator scapulae, splenius, trapezius [...] These are unchanged from previous. Barriers: 1. [facility] opioid use Plan: 1. Patient education: I [...] MD Pain Medicine Physical Medicine and Rehabilitation [facility] This note created using speech-recognition software and may contain unintended word substitutions. documented in this encounter Plan of Treatment Upcoming Encounters Date Type Specialty Care Team Description 12/02/2022 Appointment Orthopedics Donald Medley MD 1601 [facility] [address] [place], [place] [phone] (Wo rk) 12/31/2022 Appointment Orthopedics Donald Medley MD 1601 [facility] [address] [place], [place] [phone] (Wo rk) documented as of this encounter Visit Diagnoses Diagnosis Bilateral occipital neuralgia - Primary Myalgia Mylagia and myositis, unspecified Cervical vertebral fusion Klippel-Feil syndrome Spondylosis of cervical region without m yelopathy or radiculopathy (HRC) Cervical spondylosis without myelopathy documented in this encounter Care Teams Scenic Designer Relationship Specialty Start Date End Date Jose Holden MD PCP - General Otolaryngology 12/14/17 [facility] [place] [address] documented as of this encounter
--- OUTSIDE RECORDS SUMMARY | 2022-11-08 13:53 | XMS_ITS | Encounter Summary ---
:1965 Author Organization [facility] Address [address] [place] [address] Care Team Providers Name Role Phone Jose Holden MD Primary Care Provider [phone] Reason for Visit Procedure/Equipment (Routine) - Incomplete Specialty Diagnoses / Procedures Referred By Contact Refer red To Contact Diagnoses Pain due to total right knee replacement, initial encounter (HRC) Donald Medley MD Procedures CT Knee Rt WO IV Cont [facility] [facility] [address] [place] [address] Referral ID Status Reason Start Date Expiration Date Visits V isits Requested Authorized [id number] Incomplete 10/07/2022 01/06/2024 1 1 Encounter Details Date Type Department Care Team Description 10/13/2022 Ancillary Procedure Donald Mock Pain due to total [place] [address] MOISES Arce MD right knee Scan 1601 [facility] [place], [place] [address] [facility] [address] encounter (HRC) [place] [phone] Social History Tobacco Use Types Packs/Day Years [...] 12/02/2022 Appointment Orthopedics Donald Medley MD [address] [facility] [address] [phone] (Wo rk) 12/31/2022 Appointment Orthopedics Donald Medley MD [facility] [facility] [address] [phone] (Wo rk) documented as of this encounter Procedures Procedure Name Priority Date/Time Associated Diagnosis Comme nts CT KNEE RT WO IV Routine 10/13/2022 11:28 AM Pain due to total Results for this CONT HEALTHCARE ADVISORY SERVICES MANAGER right knee procedure are i n replacement, initial the res ults encounter (HRC) section. documented in this encounter Results CT Knee Rt WO IV Cont (10/13/2022 11:28 AM HEALTHCARE ADVISORY SERVICES MANAGER) Anatomical Region Laterality Modality Lower Extremity, Knee, Leg, Skeletal, Thigh Computed Tomography Specimen (Source) Anatomical Collection Method Collection Time Re ceived Time Location / / Volume Laterality 10/13/2022 11:16 AM HEALTHCARE ADVISORY SERVICES MANAGER Impressions 10/13/2022 11:52 AM HEALTHCARE ADVISORY SERVICES MANAGER COMPARISON: None TECHNIQUE: Axial CT images through [...] (HRC) documented in this encounter Care Teams Marketing Community Liaison Relationship Specialty Start Date End Date Jose Holden MD PCP - General Otolaryngology 12/14/17 [place] [address] documented as of this encounter
--- OUTSIDE RECORDS SUMMARY | 2022-11-08 13:53 | XMS_ITS | Encounter Summary ---
:1965 Author Organization [facility] Address [address], [place] [address] Care Team Providers Name Role Phone Jose Holden MD Primary Care Provider [phone] Reason for Visit Reason Comments APPOINTMENT REQUEST Encounter Details Date Type Department Care Team Description 11/13/2018 Telephone [facility] Pete Gonzalez MD APPOINTMENT REQUEST [facility] 39[address] [facility] Neurosurgery/Ortho S [place], [place] [address] [address] [place] [address] [phone] Social History Tobacco Use Types Packs/Day Years [...] Jana Marcos - 11/16/2018 3:46 PM CST [employer] spoke to the pt and helped schedule an appt with Dr. Gonzalez on 12/26/17 at 1:40PM. Pt was in agreement of date, time and location. Jana Marcos 11/16/2018, 3:46 PM L COMPANY TRUCK DRIVER Chava Simon RN - 11/16/2018 1:15 PM CST Per Sirisha Maher, FORENSIC IDENTIFICATION SPECIALIST: patient can follow up with Dr. Gonzalez with repeat upright cervical XRs. Rachid: please call patient and assist in scheduling her for an appointment with Dr. Gonzalez at next available with XR Chava Simon RN 11/16/2018, 1:20 PM [employer] COMPANY TRUCK DRIVER Chava Simon RN - 11/16/2018 11:15 [...] Walker RN - 11/15/2018 11:21 AM CST [facility]- still have not received CD from [place]. If patient calls back, please let her [...] plan? Chava Simon RN 11/13/2018, 9:12 AM L COMPANY TRUCK DRIVER Michael Cruz - 11/13/2018 8:23 AM CST Patient called in requesting for an appointment with Dr. Gonzalez himself only and not APPs. She states she fell on ice last week 11/09/18 and went to [facility] to be evaluated. She reports the [...] Gonzalez to ensure everything is well as [place] is not theones who did surgery on her and cannot compare this to before and after surgery. Production [facility] called [facility] and spoke with Mandy in the film room. They are not able to push imaging but they can send a CD. Address was provided for her of mail stop [id number] [place] [address] Attn: Dr. Gonzalez. She states the report will also be included in the CD. She then transferred me to Medical Records. [employer] spoke with Shauna who states patient will need to sign an CODI to obtain ED note from 11/09/18 to be sent to us as they are not affiliated with [employer] system. Production [employer] reached patient and relayed she would need [...] being sent. Michael Cruz 11/13/2018, 8:43 AM L COMPANY TRUCK DRIVER documented in this encounter Plan of Treatment Upcoming Encounters Date Type Specialty Care Team Description 12/02/2022 Appointment Orthopedics Donald Medley MD 1601 [facility] [address] [place] [phone] (Wo rk) 12/31/2022 Appointment Orthopedics Donald Medley MD [address] [facility] [address] [place] [phone] (Wo rk) documented as of this encounter Visit Diagnoses Diagnosis S/P cervical spinal fusion - Primary Arthrodesis status documented in this encounter Care Teams Mutuel Department Manager Relationship Specialty Start Date End Date Jose Holden MD PCP - General Otolaryngology 12/14/17 [place] [address] documented as of this encounter
--- OUTSIDE RECORDS SUMMARY | 2022-11-08 13:53 | XMS_ITS | Encounter Summary ---
:1965 Author Organization [facility] Address [address] [place], [place] [address] [address] Care Team Providers Name Role Phone Jose Holden MD Primary Care Provider [phone] Reason for Visit Reason Comments Revisit Encounter Details Date Type Department Care Team Description 08/14/2018 Office Visit [facility] Pete Gonzalez, Neck pain (Primary [facility] Dx) Neurosurgery/Ortho 3931 [facility] Spine S [address] [place], [place] [address] [address] [phone] Social History Tobacco Use Types Packs/Day Years [...] our Same Day Surgery center (4th floor [address] [place] [address]).prior to your next appointment. Follow up: with [...] your understanding. Please call the Neurosurgery Center [phone] with any further questions or concerns or [...] 12/02/2022 Appointment Orthopedics Donald Medley MD 1601 [facility] 200 [place], [place] [phone] (Wo rk) 12/31/2022 Appointment Orthopedics Donald Medley MD 1601 [facility] 200 [place] [phone] (Wo rk) documented as of this encounter Visit Diagnoses Diagnosis Neck pain - Primary Cervicalgia documented in this encounter Care Teams Intranet Specialist Relationship Specialty Start Date End Date Jose Holden MD PCP - General Otolaryngology 12/14/17 [place] [address] documented as of this encounter
--- OUTSIDE RECORDS SUMMARY | 2022-11-08 13:53 | XMS_ITS | Encounter Summary ---
:1965 Author [facility] Address [address], [place] [address] Care Team Providers Name Role Phone Jose Holden MD Primary Care Provider Encounter Details Date Type Department Care Team Description 10/14/2022 Lab Visit [facility] ue to total right Laboratory knee replacement, initial [address] [facility] encounter ([facility]) [place] [address] Social History Tobacco Use [...] Medley MD 1601 [facility] 200 [place], [place] [phone] (Wo rk) 12/31/2022 Appointment Orthopedics Donald eMdley MD 1601 [facility] 200 [place], [place] [phone] (Wo rk) documented as of this encounter Procedures Procedure Name Priority Date/Time Associated Comments Diagnosis CBC AND DIFFERENTIAL Routine 10/14/2022 2:43 PM Pain due to to beto Results for this PANEL WIND TURBINE DESIGN ENGINEER right knee procedure are i n replacement, the results initial encounter section. (HRC) COMPLETE BLOOD Routine 10/14/2022 2:43 PM Pain due to total Re sults for this COUNT-W/DIFF WIND TURBINE DESIGN ENGINEER right knee procedure are i n replacement, the results initial encounter section. (HRC) C-REACTIVE PROTEIN Routine 10/14/2022 2:43 PM Pain due to tota l Results for this WIND TURBINE DESIGN ENGINEER right knee procedure are i n replacement, the results initial encounter section. (HR[facility]) documented in this encounter Results Complete Blood Count-W/Diff (10/14/2022 2:43 PM WIND TURBINE DESIGN ENGINEER) athologist Signature WBC 9.2 3.5 - 10.5 10/14/2022 [facility] x10(9)/L 3:01 PM WIND TURBINE DESIGN ENGINEER LABORATORY RBC 4.12 3.90 - 10/14/2022 [facility] 5.03 3:01 PM WIND TURBINE DESIGN ENGINEER LAB[facility]ORY x10(12)/L Hemoglobin 12.5 12.0 - 10/14/2022 [facility] 15.5 g/dL 3:01 PM WIND TURBINE DESIGN ENGINEER LABORAT[facility] HCT 38.3 34.9 - 10/14/2022 [facility] 44.5 % 3:01 PM WIND TURBINE DESIGN ENGINEER LAB[facility]ORY MCV 93.0 80.0 - 10/14/2022 [facility] 100.0 fL 3:01 PM WIND TURBINE DESIGN ENGINEER LABORATORY MCH 30.3 27.6 - 10/14/2022 [facility] 33.3 pg 3:01 PM WIND TURBINE DESIGN ENGINEER LABORATORY MCHC 32.6 31.5 - 10/14/2022 [facility] 35.2 g/dL 3:01 PM WIND TURBINE DESIGN ENGINEER LABORATORY RDW 15.0 11.9 - 10/14/2022 [facility] 15.5 % 3:01 PM WIND TURBINE DESIGN ENGINEER [facility] Platelets 331 150 - 450 10/14/2022 [facility] x10(9)/L 3:01 PM WIND TURBINE DESIGN ENGINEER LAB[facility] Automated NRBC 0 <=0 /100 10/14/2022 [facility] WBC 3:01 PM WIND TURBINE DESIGN ENGINEER LAB[facility]ORY Neutrophil 6.6 1.7 - 7.0 10/14/2022 [facility] Absolute 10(9)/L 3:01 PM WIND TURBINE DESIGN ENGINEER LAB[facility]ORY Lymphocyte 1.9 1.0 - 4.8 10/14/2022 [facility] Absolute 10(9)/L 3:01 PM WIND TURBINE DESIGN ENGINEER LAB[facility] Monocytes 0.6 0.2 - 0.9 10/14/2022 [facility] Absolute 10(9)/L 3:01 PM WIND TURBINE DESIGN ENGINEER LAB[facility]ATORY Eosinophil 0.1 0.0 - 0.5 10/14/2022 [facility] Absolute 10(9)/L 3:01 PM WIND TURBINE DESIGN ENGINEER LAB[facility] Basophil 0.0 0.0 - 0.3 10/14/2022 [facility] Absolute 10(9)/L 3:01 PM WIND TURBINE DESIGN ENGINEER LAB[facility]ATORY Immature Gran % 0.3 0.0 - 0.5 10/14/2022 [place] % 3:01 PM WIND TURBINE DESIGN ENGINEER LABORATORY Specimen Anatomical Collection Method / Collection Time Recei jose Time (Source) Location / Volume Laterality Blood Venipuncture / 10/14/2022 2:43 10/14/2022 2:55 Unknown PM WIND TURBINE DESIGN ENGINEER PM WIND TURBINE DESIGN ENGINEER Donald Medley MD LAB_1 Performing Organization Address City/[facility]/ZIP Code Phon e Number [facility] [address] [place], [place] [phone] C-Reactive Protein (10/14/2022 2:43 PM WIND TURBINE DESIGN ENGINEER) P athologist Signature C-Reactive <0.5 0.0 - 0.7 10/14/2022 [facility] Protein mg/dL 6:49 PM WIND TURBINE DESIGN ENGINEER LABORATORY Specimen Anatomical Collection Method / Collection Time Recei jose Time (Source) Location / Volume Laterality Blood Venipuncture / 10/14/2022 2:43 10/14/2022 2:55 Unknown PM WIND TURBINE DESIGN ENGINEER PM WIND TURBINE DESIGN ENGINEER Donald Medley MD LAB_1 Performing Organization Address City/[facility]/ZIP Code Phon e Number [facility] [address] [place] [address] documented in this encounter Visit Diagnoses Diagnosis Pain due to total right knee replacement , initial encounter ([facility]) documented in this encounter Care Teams Outreach Director Relationship Specialty Start Date End Date Jose Holden MD PCP - General Otolaryngology 12/14/17 [place] [address] documented as of this encounter
--- OUTSIDE RECORDS SUMMARY | 2022-11-08 13:53 | XMS_ITS | Encounter Summary ---
:1965 Author Organization [facility] Address [address] [place] [address] Care Team Providers Name Role Phone Jose [...] Orthopedics Donald Medley MD 1601 [facility] 200 [place] [address] [phone] (Wo rk) 12/31/2022 Appointment Orthopedics Donald Medley MD 1601 [facility] 200 [place], [place] [phone] (Wo rk) documented as of this encounter Procedures Procedure Name Priority Date/Time Associated Diagnosis Comme nts CT HEAD 11/10/2018 12:00 AM Results for this FORENSIC LOCKSMITH procedure are i n the results section . documented in this encounter Results CT HEAD (11/10/2018 12:00 AM FORENSIC LOCKSMITH) Anatomical Region Laterality Modality Other Specimen (Source) Anatomical Location Collection Method / Collectio n Time Received Time / Laterality Volume 11/10/2018 Narrative This result has an attachment that is no t available. Phy No Primary/Referring DUMMY/OTHER/AR documented in this encounter Visit Diagnoses Not on filedocumented in this encounter Care Teams Rubber Goods Inspector Tester Relationship Specialty Start Date End Date Jose Holden MD PCP - General Otolaryngology 12/14/17 [facility] [place] [address] documented as of this encounter
--- OUTSIDE RECORDS SUMMARY | 2022-11-08 13:53 | XMS_ITS | Encounter Summary ---
:1965 Author Organization [facility] Address [address], [place] [address] Care Team Providers Name Role Phone Jose Holden MD Primary Care Provider [phone] Reason for Visit Procedure/Equipment (Routine) - Incomplete Specialty Diagnoses / Procedures Referred By Contact Refer red To Contact Diagnoses S/P cervical spinal fusion Sirisha Rankin, Procedures XR Cervical Spine AP/Lat Upright INSTALLER HELPER, MACHINE PRINTER [address] [place] [address] Referral ID Status Reason Start Date Expiration Date Visits V isits Requested Authorized [id number] Incomplete 10/10/2018 01/09/2020 1 1 Encounter Details Date Type Department Care Team Description 12/26/2018 Ancillary [facility] Sneha Maher, S/P cervi [place] Procedure [facility] Sirisha Celaya, INSTALLER HELPER, spinal fusion Radiology MACHINE PRINTER [address] [facility] [address] [place] [address] [place], [place] [phone] [address] Social History Tobacco Use Types Packs/Day Years [...] [facility] [address] [place] [phone] (Wo rk) 12/31/2022 Appointment Orthopedics Donald Medley MD [address] [facility] [address] [place] [phone] (Wo rk) documented as of this encounter Procedures Procedure Name Priority Date/Time Associated Diagnosis Comme nts XR CERVICAL SPINE Routine 12/26/2018 1:44 PM S/P cervical spin al Results for this AP/LAT UPRIGHT GEOSPATIAL TECHNOLOGIST fusion procedure are in the results section. documented in this encounter Results XR Cervical Spine AP/Lat Upright (12/26/2018 1:44 PM GEOSPATIAL TECHNOLOGIST) Anatomical Region Laterality Modality Spine, C-Spine, Neck Computed Radiograph y Specimen (Source) Anatomical Collection Method Collection Time Re ceived Time Location / / Volume Laterality 12/26/2018 1:44 PM GEOSPATIAL TECHNOLOGIST Narrative 12/26/2018 3:41 PM GEOSPATIAL TECHNOLOGIST EXAM: XR CERVICAL SPINE AP/LAT UPRIGHT LOCATION: [facility] DATE/TIME: 12/26/2018 1:44 PM INDICATION: Follow-up [...] EXAM: XR CERVICAL SPINE AP/LAT UPRIGHT LOCATION: [facility] DATE/TIME: 12/26/2018 1:44 PM INDICATION: Follow-up [...] level on lateral view. Sirisha Yomi Maher INSTALLER HELPER, MACHINE PRINTER RAD GD documented in this encounter Visit Diagnoses Diagnosis S/P cervical spinal fusion Arthrodesis status documented in this encounter Care Teams Predictive Maintenance Technician Relationship Specialty Start Date End Date Jose Holden MD PCP - General Otolaryngology 12/14/[address] [place], [place] [address] [address] documented as of this encounter
--- OUTSIDE RECORDS SUMMARY | 2022-11-08 13:54 | XMS_ITS | Encounter Summary ---
:1965 Author Organization [facility] Address [address] [address] Care Team Providers Name Role Phone Jose Holden MD Primary Care Provider [phone] Reason for Visit Reason Comments Medication Check In Encounter Details Date Type Department Care Team Description 03/07/2018 Telephone [facility] Pete Gonzalez MD Medication Check In [facility] [facility]Ortho S [place], [place] [address] [address] [place] [address] [phone] Social History Tobacco Use Types Packs/Day Years [...] 1:47 PM CDT Relayed message from Lois hPam PA-C to patient. Patient stated understanding. She [...] 12:25 PM CDT Pharmacist Mandy almaraz from [facility]. She would like to inform provider [...] Medley MD 1601 [facility] [address] [phone] (Wo rk) 12/31/2022 Appointment Orthopedics Donald Medley MD 1601 [facility] [address] [phone] (Wo rk) documented as of this encounter Visit Diagnoses Not on filedocumented in this encounter Care Teams Stamper Blocker Relationship Specialty Start Date End Date Jose Holden MD PCP - General Otolaryngology 12/14/17 [facility] [place] [address] documented as of this encounter
--- OUTSIDE RECORDS SUMMARY | 2022-11-08 13:54 | XMS_ITS | Encounter Summary ---
:1965 Author Organization [facility] Address [address], [place] [address] Care Team Providers Name Role Phone Jose Holden MD Primary Care Provider [phone] Reason for Visit Reason Comments POST-OP,EXAM Encounter Details Date Type Department Care Team Description 03/07/2018 Office Visit [facility] ostop check (Primary Center Neurosurgery/Ortho Dx ) Spine [address] [place] [address] Social History Tobacco Use Types [...] understanding. Please call the Neurosurgery/Spine Clinic at [phone] with any further questions or concerns. documented [...] 12/02/2022 Appointment Orthopedics Donald Medley MD 16[address] [facility] [address] [place] [phone] (Wo rk) 12/31/2022 Appointment Orthopedics Donald Medley MD [address] [facility] [address] [place] [phone] (Wo rk) documented as of this encounter Visit Diagnoses Diagnosis Postop check - Primary Follow-up examination, following unspeci fied surgery documented in this encounter Care Teams Residence Life Director Relationship Specialty Start Date End Date Jose Holden MD PCP - General Otolaryngology 12/14/17 [place] [address] documented as of this encounter
--- OUTSIDE RECORDS SUMMARY | 2022-11-08 13:54 | XMS_ITS | Encounter Summary ---
:1965 Author Organization [facility] Address [address] [address] Care Team Providers Name Role Phone Jose Holden MD Primary Care Provider [phone] Reason for Visit Procedure/Equipment (Routine) - Incomplete Specialty Diagnoses / Procedures Referred By Contact Refer red To Contact Diagnoses S/P cervical spinal fusion Sirisha Rankin, Procedures XR Cervical Spine AP/Lat Upright SUPERVISOR LIME, NEEDLE BAR MOLDER [address] [place] [address] Referral ID Status Reason Start Date Expiration Date Visits V isits Requested Authorized [id number] Incomplete 04/05/2018 07/05/2019 1 1 Encounter Details Date Type Department Care Team Description 06/14/2018 [facility] Sneha Maher, S/P cervi [facility] spinal [facility] Sirisha Celaya, APR N, NEEDLE BAR MOLDER fusion Radiology [address] [place] [address] [place] [address] [phone] Social History Tobacco Use Types Packs/Day Years [...] 12/02/2022 Appointment Orthopedics Donald Medley MD 1601 [facility] [address] [address] [phone] (Wo [...] note might be different from the original. [facility] XR CERVICAL SPINE AP/LAT [...] soft tissue swelling. Remainder unchanged. Sirisha Maher SUPERVISOR LIME, NEEDLE BAR MOLDER RAD GD documented in this encounter Visit Diagnoses Diagnosis S/P cervical spinal fusion Arthrodesis status documented in this encounter Care Teams Data Entry Technician Relationship Specialty Start Date End Date Jose Holden MD PCP - General Otolaryngology 12/14/17 [address] [place] [address] documented as of this encounter
--- OUTSIDE RECORDS SUMMARY | 2022-11-08 13:54 | XMS_ITS | Encounter Summary ---
:1965 Author Organization [facility] Address [address], [place] [address] Care Team Providers Name Role Phone Jose Holden MD Primary Care Provider Reason for Visit Reason Onset Date Comments Refill 03/01/2018 Encounter Details Date Type Department Care Team Description 03/01/2018 Refill [facility] Chava Simon RN Refill Neurosurgery/Ortho S [address] [address] Social History Tobacco Use Types [...] RN 03/01/2018, 11:58 AM Sirisha Rankin APRN, FILM PAINTER - 03/01/2018 11:47 AM CDT Refill approved. Frequency has been decreased to 1-2 tabs Q4 hours as per standard weaning. Sirisha Jefferson APRN, FILM PAINTER 03/01/2018, 11:49 AM Chava Simon RN - [...] pt. have a f/u appointment: 04/05/2018 Pharmacy: [facility] pharmacy Chava Simon RN 03/01/2018, 11:40 AM documented in this encounter Plan of Treatment Upcoming Encounters Date Type Specialty Care Team Description 12/02/2022 Appointment Orthopedics Donald Medley MD 1601 [facility] 200 [place], [place] [phone] (Wo rk) 12/31/2022 Appointment Orthopedics Donald Medley MD 1601 [facility] 200 [place], [place] [phone] (Wo rk) documented as of this encounter Visit Diagnoses Not on filedocumented in this encounter Care Teams Hall Cleaner Relationship Specialty Start Date End Date Jose Holden MD PCP - General Otolaryngology 12/14/17 [place] [id number] documented as of this encounter
--- OUTSIDE RECORDS SUMMARY | 2022-11-08 13:54 | XMS_ITS | Encounter Summary ---
:1965 Author Organization [facility] Address [address], [place] [address] Care Team Providers Name Role Phone Jose Holden MD Primary Care Provider [phone] Encounter Details Date Type Department Care Team [...] 12/02/2022 Appointment Orthopedics Donald Medley MD 1601 [facility] [address] [place] [phone] (Wo rk) 12/31/2022 Appointment Orthopedics Donald Medley MD 1601 [facility] 200 [place], [place] [phone] (Wo rk) documented as [...] on filedocumented in this encounter Care Teams Bell Tier Relationship Specialty Start Date End Date Jose Holden MD PCP - General Otolaryngology 12/14/17 [facility] [place] [address] documented as of this encounter
--- OUTSIDE RECORDS SUMMARY | 2022-11-08 13:54 | XMS_ITS | Encounter Summary ---
:1965 Author Organization [facility] Address [address] [address] Care Team Providers Name Role Phone Jose Holden MD Primary Care Provider [phone] Reason for Visit Reason Comments Forms Encounter Details Date Type Department Care Team Description 07/11/2018 Telephone [facility] Pete Gonzalez MD Forms Center Neurosurgery/Ortho [address] [facility] Spine [place], [place] [address] [address] [place] [address] [phone] Social History Tobacco Use Types Packs/Day Years [...] 12/02/2022 Appointment Orthopedics Donald Medley MD 1601 [facility] [address] [place] [phone] (Wo rk) 12/31/2022 Appointment Orthopedics Donald Medley MD 1601 [facility] 200 [place] [phone] (Wo rk) documented as of this encounter Visit Diagnoses Not on filedocumented in this encounter Care Teams Net Mender Relationship Specialty Start Date End Date Jose Holden MD PCP - General Otolaryngology 12/14/[address] [place], [place] [address], [place] [id number] documented as of this encounter
--- OUTSIDE RECORDS SUMMARY | 2022-11-08 13:54 | XMS_ITS | Encounter Summary ---
:1965 Author Organization [facility] Address [address], [place] [address] Care Team Providers Name Role Phone Jose Holden MD Primary Care Provider [phone] Reason for Visit Reason Comments UPDATE Encounter Details Date Type Department Care Team Description 07/07/2018 Telephone [facility] Gume Perry, UPDATE Center Pain Manageco kole [facility] [address] [place] [address] [place] [address] [phone] (Wo rk) Social History Tobacco Use Types [...] Arenas, RN - 07/07/2018 12:44 PM CDT Trouble Shooting Mechanic called patient, she states she has left neck/shoulder pain that did not improve after TPI's last week. Pt shares her right side of neck/shoulder is getting tight again and she is having headaches. Pt wants to proceed with occipital nerve blocks for her headache. Trouble Shooting Mechanic offered patient appointment 07/10 which she accepted. [...] 12/02/2022 Appointment Orthopedics Donald Medley MD [facility]01 [facility] [address] [place] [address] [phone] (Babatunde billings) 12/31/2022 Appointment OrthopedicDonald Thomas MD [address] [facility] [address] [place] [address] [phone] (Babatunde billings) documented as of this encounter Visit Diagnoses Not on filedocumented in this encounter Care Teams Rolled Materials Worker Relationship Specialty Start Date End Date Jose Holden MD PCP - General Otolaryngology 12/14/17 [place] [id number] documented as of this encounter
--- OUTSIDE RECORDS SUMMARY | 2022-11-08 13:54 | XMS_ITS | Encounter Summary ---
:1965 Author Organization [facility] Address [address], [place] [address] Care Team Providers Name Role Phone Jose Holden MD Primary Care Provider [phone] Reason for Referral Therapies (Routine) - Closed Specialty Diagnoses / Procedures Referred By Contact Refer red To Contact Diagnoses S/P cervical spinal fusion Pete Gonzalez MD [address] [place] [id number] Referral ID Status Reason Start Date Expiration Date Visits Requ ested Visits Authorized [id number] Closed 08/16/2018 10/15/2018 1 1 Scheduling Instructions Ynikolai provider has recommended an appoin tment with a [facility] Physical Therapist. Please stop at the clinic check out desk for assistance with scheduling or if you prefer to call for your appointment you may call [facility] Outpatient Rehabilitation at [phone]. We suggest you call your [employer] insurance company about your coverage and benefits for this appointment. Encounter Details Date Type Department Care Team Description 07/07/2018 Telephone [facility] Neuroscience Pete Gonzalez MD Center Neurosurgery/Ortho [address] [facility] Spine [place], [place] [address] [facility] [place] [address] [place] [address] [phone] Social History Tobacco Use Types Packs/Day Years [...] Del Toro - 08/16/2018 1:41 PM CDT Foil Spinner contacted patient 08/16-faxed order to [facility] [phone] per patient request Chava Simon RN - [...] status documented in this encounter Care Teams Filler Shredder Machine Relationship Specialty Start Date End Date Jose Holden MD PCP - General Otolaryngology 12/14/17 [facility] [place] [address] documented as of this encounter
--- OUTSIDE RECORDS SUMMARY | 2022-11-08 13:54 | XMS_ITS | Encounter Summary ---
:1965 Author Organization [facility] Address [address] [place] [address] Care Team Providers Name Role Phone Jose Holden MD Primary Care Provider [phone] Reason for Visit Reason Comments Revisit occipital nerve block Encounter Details Date Type Department Care Team Description 07/10/2018 Office Visit [facility] occipital neuralgia (Primary Dx); Neuroscience Center Ralu Alvarado MD Myalgia; Management [address] H/O cervical spinal arthrodesis [address] [place] [address] [phone] Social History Tobacco Use Types Packs/Day Years [...] treatment plan is, please contact me via [employer] online messaging or call the office at and ask to speak to a nurse. Tony Pittman MD Pain Medicine documented in this encounter Progress Notes Tony Pittman MD - 07/10/2018 3:45 PM CDT [facility] Clinic Follow-up Visit 07/10/2018 Interim [...] anterior cervical fusion 2017 Dr. Ihsan Brooke, [facility] past surgical [...] ??? medical cannabis patient certified Take 1 [place] by mouth . ??? naloxone (NARCAN) 4 [...] 0 No facility-administered medications prior to visit. [place] and [place] Prescription Monitoring Program reviewed Allergies: [...] her mother. Social history:she lives in [place], [place].she is not currently working. Smokin/2 ppd. [...] Pain Medicine Physical Medicine and Rehabilitation [facility] Pain Management This document serves as [...] Medley MD 16[address] [facility] 200 [place] [phone] (Wo manuelito) 12/31/2022 Appointment Orthopedics Donald Medley MD [address] [facility] [address] [place] [phone] (Wo manuelito) documented as of this encounter Visit Diagnoses Diagnosis Bilateral occipital neuralgia - Primary Myalgia Mylagia and myositis, unspecified H/O cervical spinal arthrodesis Arthrodesis status documented in this encounter Care Teams Rangelands Conservation Laborer Relationship Specialty Start Date End Date Jose Holden MD PCP - General Otolaryngology 12/14/17 [address] [place] [address] documented as of this encounter
--- OUTSIDE RECORDS SUMMARY | 2022-11-08 13:54 | XMS_ITS | Encounter Summary ---
:1965 Author Organization [facility] Address [address] [place] [address] Care Team Providers Name Role Phone Jose Holden MD Primary Care Provider [phone] Encounter Details Date Type Department Care Team Description 06/29/2018 [facility] Procedure/Treat Neuroscience Center Tony Alvarado MD FOR TX/PROCEDURE ent Pain Management [address] [place] [phone] Social History Tobacco Use Types Packs/Day Years [...] [facility] 200 [place], [place] [phone] (Wo rk) 12/31/2022 Appointment Orthopedics Donald Medley MD [address] [facility] 200 [place], [place] [phone] (Wo rk) documented as of this encounter Visit Diagnoses Not on filedocumented in this encounter Care Teams Cellophaner Relationship Specialty Start Date End Date Jose Holden MD PCP - General Otolaryngology 12/14/17 [place] [address] documented as of this encounter
--- OUTSIDE RECORDS SUMMARY | 2022-11-08 13:54 | XMS_ITS | Encounter Summary ---
:1965 Author Organization [facility] Address [address], [place] [address] Care Team Providers Name Role Phone oJse Holden MD Primary Care Provider Reason for Referral Procedure/Equipment (Routine) - Closed Specialty Diagnoses / Procedures Referred By Contact Refer red To Contact Diagnoses Neck pain Pete Gonzalez MD [address] [place] [address] Referral ID Status Reason Start Date Expiration Date Visits Requ ested Visits Authorized [id number] Closed 06/14/2018 12/11/2018 1 1 Scheduling Instructions [...] Care Team Description 06/14/2018 Office Visit Pete Watosn, Lumbar rad iculopathy (Primary Dx); Neuroscience Center Neck pain Neurosurgery/Ortho [address] [facility] Spine [address] [facility] [place] [address] [place] [id number] Social History Tobacco Use Types Packs/Day Years [...] your understanding. Please call the Neurosurgery Center [phone] with any further questions or concerns or [...] Description 12/02/2022 Appointment Orthopedics Donald Medley MD [address] [facility] [address] [place] [phone] (Babatunde billings) 12/31/2022 Appointment Donald Goldsmith MD [address] [facility] [address] [place] [phone] (Babatunde billings) Scheduled Referrals Name Type Priority Associated Diagnoses Order S chedule Acupuncture Referral Routine Neck pain Ordered: 2017 documented as of this encounter Visit Diagnoses Diagnosis Lumbar radiculopathy - Primary Thoracic or lumbosacral neuritis or radi culitis, unspecified Neck pain Cervicalgia documented in this encounter Care Teams Culture Media Laboratory Assistant Relationship Specialty Start Date End Date Jose Holden MD PCP - General Otolaryngology 12/14/17 [facility] [place] [address] documented as of this encounter
--- OUTSIDE RECORDS SUMMARY | 2022-11-08 13:54 | XMS_ITS | Encounter Summary ---
:1965 Author Organization [facility] Address [address], [place] [address] Care Team Providers Name Role Phone Jose Holden MD Primary Care Provider [phone] Reason for Visit Reason Comments Revisit Bilateral cervical/thoracic trigger point injections Encounter Details Date Type Department Care Team Description 06/20/2018 Office Visit [facility] Myalgia (Primary Dx); Neuroscience Center Pain RMD H/O cervical spinal arthrodesis; Management [address] Cervical vertebral fusion; [address] [place], [place] Fibromyalgia; [place] [address] Tobacco use disorder; [phone] Status post tot al left knee replacement [...] treatment plan is, please contact me via [employer] online messaging or call the office at [...] Gain No facility-administered medications prior to visit. [place] and [place] Prescription Monitoring Program reviewed Allergies: [...] her mother. Social history:she lives in [place], [place].she is not currently working. Smokin/2 ppd. [...] post total left knee replacement Barriers: 1. FPC opioid use Plan: 1. Patient education: I went over the above diagnoses and treatment plan with her and answered all of her questions. 2. Imaging review: None 3. Exercise program: Regular exercise and activity 4. Medications: No changes. Do not recommend termite technician opioid use, continue to decrease use until [...] Medley MD [address] [facility] 200 [place], [place] [phone] (Wo rk) 12/31/2022 Appointment Orthopedics Donald Medley MD [address] [facility] 200 [place], [place] [phone] (Wo rk) documented as of this encounter Visit Diagnoses Diagnosis Myalgia - Primary Mylagia and myositis, unspecified H/O cervical spinal arthrodesis Arthrodesis status Cervical vertebral fusion Klippel-Feil syndrome Fibromyalgia Mylagia and myositis, unspecified Tobacco use disorder (HRC) Tobacco use disorder Status post total left knee replacement documented in this encounter Care Teams Guide Relationship Specialty Start Date End Date Jose Holden MD PCP - General Otolaryngology 12/14/17 [address] [place] [address] documented as of this encounter
--- OUTSIDE RECORDS SUMMARY | 2022-11-08 13:54 | XMS_ITS | Encounter Summary ---
:1965 Author [facility] Address [address], [place] [address] Care Team Providers Name Role Phone Jose Holden MD Primary Care Provider [phone] Encounter Details Date Type Department Care Team [...] Description 12/02/2022 Appoint[place] [address] [place] [address] [phone] (Wo rk) 12/31/2022 Appointment Orthopedics Donald Medley MD [address] [facility] 200 [place], [place] [phone] (Wo rk) documented as [...] on filedocumented in this encounter Care Teams Adjutant General Relationship Specialty Start Date End Date Jose Holden MD PCP - General Otolaryngology 12/14/17 [facility] [place] [address] documented as of this encounter
--- OUTSIDE RECORDS SUMMARY | 2022-11-08 13:54 | XMS_ITS | Encounter Summary ---
:1965 Author Organization [facility] Address [address], [place] [address] Care Team Providers Name Role Phone Jose Hodlen MD Primary Care Provider [phone] Reason for Visit Reason Comments Medication Questions FYI Encounter Details Date Type Department Care Team Description 03/01/2018 Telephone [facility] Pete Gonzalez MD Medication Questions; Neuroscience Center [address] [place] [address] FY I Neurosurgery/Ortho S pine [address] [place] [address] [place] [address] [phone] (Wo rk) Social History Tobacco Use Types [...] 12/02/2022 Appointment Orthopedics Donald Medley MD 1601 [facility] [address] [place] [phone] (Wo rk) 12/31/2022 Appointment Orthopedics Donald Medley MD [address] [facility] [address] [place] [phone] (Wo rk) documented as of this encounter Visit Diagnoses Not on filedocumented in this encounter Care Teams Air Tucker Relationship Specialty Start Date End Date Jose Holden MD PCP - General Otolaryngology 12/14/17 [address] [place] [id number] documented as of this encounter
--- OUTSIDE RECORDS SUMMARY | 2022-11-08 13:54 | XMS_ITS | Encounter Summary ---
:1965 Author Organization [facility] Address [address], [place] [address] Care Team Providers Name Role Phone Jose Holden MD Primary Care Provider [phone] Reason for Visit Reason Comments Revisit trigger point injections Encounter Details Date Type Department Care Team Description 06/29/2018 Office Visit [facility] Myalgia (Primary Dx); Neuroscience Center Raul Alvarado MD Medical marijuana use; Management [address] H/O cervical spinal arthrodesis; [address] [place], [place] [address] [phone] Social History Tobacco Use Types Packs/Day Years [...] treatment plan is, please contact me via [employer] online messaging or call the office at and ask to speak to a nurse. Tony Pittman MD Pain Medicine documented in this encounter Progress Notes Tony Pittman MD - 06/29/2018 10:20 AM CDT [facility] Follow-up Visit 06/29/2018 Interim [...] Oxycodone 5 mg Q6H - Prescribes by [facility], has been taking for [...] at a pain clinic in the past. [facility] physical therapy: Past Acupuncture: [...] ??? medical cannabis patient certified Take 1 [place] by mouth . ??? naloxone (NARCAN) 4 [...] facility-administered medications prior to visit. [place] and [place] Prescription Monitoring Program reviewed Allergies: [...] in her mother. Social history:she lives in [place], [place].she is not currently working. Smokin/2 ppd. [...] instead in the future Barriers: 1. termite treater helper opioid use Plan: 1. Patient education: I [...] MD Pain Medicine Physical Medicine and Rehabilitation [facility] This document serves as a record of services personally performed by Tony Pittman MD. It was created on his behalf by Gillian Harding, a trained medical practice administrator. The creation of this record is based on the scribe's personal observations and the provider's statements to her. The document has been checked and approved by the attending provider. documented in this encounter Plan of Treatment Upcoming Encounters Date Type Specialty Care Team Description 12/02/2022 Appointment Orthopedics Donald Medley MD [address] [place] [address] [...] disorder documented in this encounter Care Teams Freight Caller Relationship Specialty Start Date End Date Jose Holden MD PCP - General Otolaryngology 12/14/[address] [place], [place] [address] [address] documented as of this encounter
--- OUTSIDE RECORDS SUMMARY | 2022-11-08 13:54 | XMS_ITS | Encounter Summary ---
:1965 Author Organization [facility] Address [address], [place] [address] Care Team Providers Name Role Phone Jose Holden MD Primary Care Provider [phone] Reason for Visit Procedure/Equipment (Routine) - Incomplete Specialty Diagnoses / Procedures Referred By Contact Refer red To Contact Diagnoses Cervical spondylosis with radiculopathy (HRC) Sneha Maher, Sirisha Celaya, Procedures XR Cervical Spine AP/Lat Upright TIMBER POISONER, WEATHER ANALYST [address] [place] [address] Referral ID Status Reason Start Date Expiration Date Visits V isits Requested Authorized [id number] Incomplete 02/21/2018 05/23/2019 1 1 Encounter Details Date Type Department Care Team Description 04/05/2018 Imaging [facility] Sneha Maher, Cervical spondylosis Neuroscience Center Sirisha Celaya, APR N, WEATHER ANALYST with radiculopathy Radiology [address] [place] [address] [phone] (Wo rk) Social History Tobacco Use Types [...] 12/02/2022 Appointment Orthopedics Donald Medley MD [address] [facility] [address] [phone] (Wo rk) 12/31/2022 Appointment Orthopedics Donald Medley MD [address] [facility] [address] [...] failure. Anatomic alignment. Shoulder prosthesis. Sirisha Maher TIMBER POISONER, WEATHER ANALYST RAD GD documented in this encounter Visit Diagnoses Diagnosis Cervical spondylosis with radiculopathy (HRC) Cervical spondylosis with myelopathy documented in this encounter Care Teams Erector Operator Relationship Specialty Start Date End Date Jose Holden MD PCP - General Otolaryngology 12/14/17 [address] [place] [address] documented as of this encounter
--- OUTSIDE RECORDS SUMMARY | 2022-11-08 13:54 | XMS_ITS | Encounter Summary ---
:1965 Author Organization [facility] Address [address], [place] [address] Care Team Providers Name Role Phone Jose Holden MD Primary Care Provider Reason for Visit Reason Comments UPDATE Pain Encounter Details Date Type Department Care Team Description 06/22/2018 Telephone [facility] Neuroscience Gume Pittman, UPDATE; Pain Center Pain Manageil kole FAULKNER [address] [place] [address] [place] [address] [phone] (Wo rk) Social History Tobacco Use Types [...] Arenas RN - 06/26/2018 10:02 AM CDT Analog Design Engineer called patient, notified info below. Analog Design Engineer offered patient appt today however she cannot [...] returned post TPI's from 3 days ago. Analog Design Engineer called patient, she states the day of [...] post total left knee replacement ??Barriers: 1. MCFP opioid use ??Plan: 1. Patient education: I went over the above diagnoses and treatment plan with her and answered all of her questions. 2. Imaging review: None 3. Exercise program: Regular exercise and activity 4. Medications: No changes. Do not recommend mcc opioid use, continue to decrease use until [...] MD Pain Medicine Physical Medicine and Rehabilitation [facility] Pain Management. Obi Echeverria - 06/22/2018 [...] Medley MD 1601 [facility] 200 [place], [place] [phone] (Wo rk) 12/31/2022 Appointment Orthopedics Donald Medley MD [address] [facility] 200 [place], [place] [phone] (Wo rk) documented as of this encounter Visit Diagnoses Not on filedocumented in this encounter Care Teams Scanner Operator Relationship Specialty Start Date End Date Jose Holden MD PCP - General Otolaryngology 12/14/17 [place] [address] documented as of this encounter
--- OUTSIDE RECORDS SUMMARY | 2022-11-08 13:54 | XMS_ITS | Encounter Summary ---
:1965 Author Organization [facility] Address [address] [address] Care Team Providers Name Role Phone Jose Holden MD Primary Care Provider [phone] Reason for Visit Reason Comments QUESTIONS, GENERAL Encounter Details Date Type Department Care Team Description 02/24/2018 Telephone [facility] Pete Gonzalez MD QUESTIONS, GENERAL Neuroscience Center [address] [facility] [place] Neurosurgery/Ortho [address] [place], [place] [address] [address] [place] [address] [phone] Social History Tobacco Use Types Packs/Day Years [...] currently doing PT which was ordered through [facility] for her shoulder. She is worried [...] 12/02/2022 Appointment Orthopedics Donald Medley MD 1601 [facility] [address] [place] [phone] (Wo rk) 12/31/2022 Appointment Orthopedics Donald Medley MD [address] [facility] [address] [place] [phone] (Wo rk) documented as of this encounter Visit Diagnoses Not on filedocumented in this encounter Care Teams Repair Table Operator Relationship Specialty Start Date End Date Jose Holden MD PCP - General Otolaryngology 12/14/17 [facility] [place] [address] documented as of this encounter
--- OUTSIDE RECORDS SUMMARY | 2022-11-08 13:54 | XMS_ITS | Encounter Summary ---
:1965 Author Organization [facility] Address [address] [place] [address] Care Team Providers Name Role Phone Jose Holden MD Primary Care Provider [phone] Encounter Details Date Type Department Care Team Description 06/20/[address] [facility] Procedure/Treat Neuroscience Center Tony Alvarado MD FOR TX/PROCEDURE ent Pain Management [address] [place] [phone] Social History Tobacco Use Types Packs/Day Years [...] Medley MD 1601 [facility] 200 [place], [place] [phone] (Wo rk) 12/31/2022 Appointment Orthopedics Donald Medley MD [address]01 [facility] 200 [place], [place] [phone] (Wo rk) documented as of this encounter Visit Diagnoses Not on filedocumented in this encounter Care Teams Pharmacy Director Relationship Specialty Start Date End Date Jose Holden MD PCP - General Otolaryngology 12/14/17 [place] [address] documented as of this encounter
--- OUTSIDE RECORDS SUMMARY | 2022-11-08 13:54 | XMS_ITS | Encounter Summary ---
:1965 Author Organization [facility] Address [address], [place] [address] Care Team Providers Name Role Phone Jose Holden MD Primary Care Provider [phone] Reason for Visit Reason Comments Refill Encounter Details Date Type Department Care Team Description 03/07/2018 Telephone [facility] Neuroscience Pete Gonzalez MD Refill Center Neurosurgery/Ortho [address] [facility] Spine [place], [place] [address] [address] [place] [address] [phone] Social History Tobacco Use Types Packs/Day Years [...] 12/02/2022 Appointment Orthopedics Donald Medley MD [address] [facility] [address] [place] [phone] (Wo rk) 12/31/2022 Appointment Orthopedics Donald Medley MD [address] [facility] [address] [place] [phone] (Wo rk) documented as of this encounter Visit Diagnoses Not on filedocumented in this encounter Care Teams Pl Sql Programmer Relationship Specialty Start Date End Date Jose Holden MD PCP - General Otolaryngology 12/14/17 [place] [id number] documented as of this encounter
--- OUTSIDE RECORDS SUMMARY | 2022-11-08 13:54 | XMS_ITS | Encounter Summary ---
:1965 Author Organization [facility] Address [address], [place] [address] Care Team Providers Name Role Phone Jose Holden MD Primary Care Provider [phone] Encounter Details Date Type Department Care Team [...] Description 12/02/2022 [place] [address] [place] [phone] (Wo rk) 12/31/2022 Appointment Orthopedics Donald Medley MD 1601 [facility] 200 [place], [place] [phone] (Wo rk) documented as [...] on filedocumented in this encounter Care Teams Liability Claims Examiner Relationship Specialty Start Date End Date Jose Holden MD PCP - General Otolaryngology 12/14/17 [facility] [place] [address] documented as of this encounter
--- OUTSIDE RECORDS SUMMARY | 2022-11-08 13:54 | XMS_ITS | Encounter Summary ---
:1965 [facility] Address [address], [place] [address] Care Team Providers Name Role Phone Jose Holden MD Primary Care Provider [phone] Reason for Visit Reason Comments QUESTIONS, GENERAL Encounter Details Date Type Department Care Team Description 03/01/2018 Telephone [facility] Pete Gonzalez MD QUESTIONS, GENERAL [facility] [facility] Neuro[facility]Ortho [address] [place], [place] [address] [address] [place] [address] [phone] Social History Tobacco Use Types Packs/Day Years [...] she should go to the ED in [place]? Please review and advise. Chantel Angela 03/01/2018, 11:15 AM documented in this encounter Plan of Treatment Upcoming Encounters Date Type Specialty Care Team Description 12/02/2022 Appointment Orthopedics Donald Medley MD [address] [facility] [address] [phone] (Babatunde billings) 12/31/2022 Appointment OrthopedicDonald Thomas MD [address] [place] [address] [phone] (Babatunde billings) documented as of this encounter Visit Diagnoses Not on filedocumented in this encounter Care Teams Telegraphic Typewriter Mechanic Relationship Specialty Start Date End Date Jose Holden MD PCP - General Otolaryngology 12/14/17 [place] [id number] documented as of this encounter
--- OUTSIDE RECORDS SUMMARY | 2022-11-08 13:54 | XMS_ITS | Encounter Summary ---
:1965 Author Organization [facility] Address [address] [place] [address] Care Team Providers Name Role Phone Jose Holden MD Primary Care Provider [phone] Encounter Details Date Type Department Care Team Description 07/10/[facility] Tony Alvarado MD FOR TX/PROCEDURE ent Pain Management [address] [place] [address] [id number] Social History Tobacco Use Types Packs/Day Years [...] 12/02/2022 Appointment Orthopedics Donald Medley MD [address] [facility] [address] [place], [place] [phone] (Wo rk) 12/31/2022 Appointment Orthopedics Donald Medley MD [address] [facility] [address] [place], [place] [phone] (Wo rk) documented as of this encounter Visit Diagnoses Not on filedocumented in this encounter Care Teams Obstetrics Gyn Physician Relationship Specialty Start Date End Date Jose Holden MD PCP - General Otolaryngology 12/14/17 [place] [address] documented as of this encounter
--- OUTSIDE RECORDS SUMMARY | 2022-11-08 13:54 | XMS_ITS | Encounter Summary ---
:1965 Author Organization [facility] Address [address] [place] [address] Care Team Providers Name Role Phone Jose Holden MD Primary Care Provider [phone] Reason for Referral Therapies (Routine) - Closed Specialty Diagnoses / Procedures Referred By Contact Refer red To Contact Diagnoses S/P cervical spinal fusion Pete Gonzalez MD [address] [place] [id number] Referral ID Status Reason Start Date Expiration Date Visits Requ ested Visits Authorized [id number] Closed 06/26/2018 08/25/2018 1 1 Scheduling Instructions Your provider has recommended an appoint ment with a [facility] Physical Therapist. Please stop at the clinic check out desk for assistance with scheduling or if you prefer to call for your appointment you may call [facility] [place] at [phone]. We suggest yo u call your health insurance company about your coverage and benefits for this appo intment. Reason for Visit Reason Comments RESULTS, TEST Orders Needed Encounter Details Date Type Department Care Team Description 06/22/2018 Telephone [facility] Pete Gonzalez MD RESULTS, TEST; Orders [facility] [address] [facility] eded Neurosurgery/Ortho [address] [place] [address] [place] [address] [phone] (Wo rk) Social History Tobacco Use Types [...] getting a stimulator or morphine pump through [facility]. She is wondering if she should wait and discuss possible surgical options with Dr. Gonzalez or just get the stimulator or morphine pump? Please advise. Chava Simon RN 06/28/2018, 8:45 AM Michael Cruz - 06/28/2018 8:25 AM CDT Patient calling in regards to her imaging results. Bottom Liner relayed message from Lois Pham PA-C. Patient states that she would like a return call. Patient states she doesn't understand why there are no acute concerns? She will be seeing [facility] to discuss getting a stimulator or morphine pump. Patient would like to know if she should move forward with this from Neurosurgery standpoint. Please call patient to further discuss and advise. Michael Cruz 06/28/2018, 8:27 AM Chava Simon RN - 06/28/2018 8:24 AM CDT [facility] Chava Simon RN 06/28/2018, 8:26 [...] Michael Cruz - 06/26/2018 11:18 AM CDT Bottom Liner reached patient and relayed message below to her. Patient expressed her appreciation. Per herrequest order has been sent to [facility] outpatient rehabilitation services at [phone] with a note to have them call patient to schedule. Patient aware they will reach out to schedule her for PT. She also states she picked up a copy of her imaging and they relayed that they had alreadysent one. Bottom Liner called their radiology department and spoke to Selena who states a CD was not mailed out and she is not sure why. She took down clinic address of [place] [id number] [address] and stated she would send one out [...] sure she has had this sent from [facility] for team to review. Chava Simon [...] of CT and MRIthat were done at [facility] on 06/20. Informed pt that Dr. [...] MD [address] [facility] [address] [place] [phone] (Wo rk) 12/31/2022 Appointment OrthopedicDonald Thomas MD [address] [facility] [address] [place] [phone] (Wo rk) Scheduled Referrals Name Type Priority Associated Diagnoses Order S chedule Physical Therapy Referral Routine S/P cervical spinal fusi on Ordered: 06/26/2018 documented as of this encounter Visit Diagnoses Diagnosis S/P cervical spinal fusion - Primary Arthrodesis status documented in this encounter Care Teams Boiler Blower Relationship Specialty Start Date End Date Jose Holden MD PCP - General Otolaryngology 12/14/17 [place] [address] documented as of this encounter
--- OUTSIDE RECORDS SUMMARY | 2022-11-08 13:54 | XMS_ITS | Encounter Summary ---
:1965 Author Organization [facility] Address [address] [address] Care Team Providers Name Role Phone Jose Holden MD Primary Care Provider [phone] Encounter Details Date Type Department Care Team Description 03/24/2018 Telephone [facility] Neuroscience Chava Simon RN [place] [facility] Spine [address] [place] [address] [phone] Social History Tobacco Use Types Packs/Day Years [...] RN 03/24/2018, 10:24 AM Sirisha Rankin APRN, FINANCIAL REPORTING MANAGER - 03/24/2018 9:52 AM CDT Continue to monitor symptoms. No change in plan/appointment at this time. We will review cervical CTwhen it is available. Sirisha Jefferson APRN, FINANCIAL REPORTING MANAGER 03/24/2018, 9:53 AM Chava Simon RN - 03/24/2018 9:23 AM CDT Patient called and state she was in a little accident last night. She ended up going to [facility]. They did imaging of neck and [...] positioning. Patient states she is able to slate picker a coffee cup with left hand. [...] clinic on 03/27/18 which were done at [facility]) Chava Simon RN 03/24/2018, 9:37 AM documented in this encounter Plan of Treatment Upcoming Encounters Date Type Specialty Care Team Description 12/02/2022 Appointment Orthopedics Donald Medley MD [address] [facility] [address] [place] [phone] (Wo rk) 12/31/2022 Appointment Orthopedics Donald Medley MD [address] [facility] [address] [place] [phone] (Wo rk) documented as of this encounter Visit Diagnoses Not on filedocumented in this encounter Care Teams Construction Estimator Relationship Specialty Start Date End Date Jose Holden MD PCP - General Otolaryngology 12/14/17 [facility] [place] [address] documented as of this encounter
--- OUTSIDE RECORDS SUMMARY | 2022-11-08 13:54 | XMS_ITS | Encounter Summary ---
:1965 Author Organization [facility] Address [address], [place] [address] Care Team Providers Name Role Phone Jose Holden MD Primary Care Provider [phone] Reason for Referral Procedure/Equipment (Routine) - Incomplete Specialty Diagnoses / Procedures Referred By Contact Refer red To Contact Diagnoses S/P cervical spinal fusion Sirisha Rankin, Procedures XR Cervical Spine AP/Lat Upright KALPANA SHER [address] [place] [address] Referral ID Status Reason Start Date Expiration Date Visits V isits Requested Authorized [id number] Incomplete 04/05/2018 07/05/2019 1 1 Reason for Visit Reason Comments POST-OP,EXAM Encounter Details Date Type Department Care Team Description 04/05/2018 Office Visit [facility] Sneha Maher, S/P cervic al spinal [facility] RODRICK Newberry CNP fusion (Primary Dx) Neurosurgery/Ortho [address] Spine [place], [place] [address] [address] [place] [address] [phone] Social History Tobacco Use Types Packs/Day Years [...] your understanding. Please call the Neurosurgery Center [phone] with any further questions or concerns or if your symptoms worsen. Thank you for coming to see us today. We are your partner. documented in this encounter Progress Notes Sirisha Rankin, SHELLFISH PROCESSING LABORER, SPECIFICATIONS WRITER - 04/05/2018 1:00 PM CDT POSTOPERATIVE DIAGNOSES: [...] a divorce and plans to move to [place] in the next several months. She would like to have an appointment with Dr. Gonzalez prior to her move out of [facility]. She denies any incisional concerns. She [...] elbow(tricep) R:5/5 L: 5/5 C8 - Finger flexors(senior it business analyst) R:5/5 L: 5/5 T1 - Finger abduction/adduction [...] MD [address] [facility] [address] [place] [phone] (Wo rk) 12/31/2022 Appointment Donald Goldsmith MD [address] [facility] [address] [place] [phone] (Wo rk) documented as of this encounter Results XR Cervical Spine AP/Lat Upright (06/14/2018 1:41 PM CDT) Anatomical Region Laterality Modality Spine, C-Spine, Neck Computed Radiograph y Specimen (Source) Anatomical Collection Method Collection Time Re ceived Time Location / / Volume Laterality 06/14/2018 1:41 PM CDT Narrative 06/14/2018 5:[address] [facility] XR CERVICAL SPINE AP/LAT UPRIGHT 06/14/2018 [...] note might be different from the original. [facility] XR CERVICAL SPINE AP/LAT UPRIGHT 06/14/2018 [...] soft tissue swelling. Remainder unchanged. Sirisha Maher SHELLFISH PROCESSING LABORER, SPECIFICATIONS WRITER RAD GD documented in this encounter Visit Diagnoses Diagnosis S/P cervical spinal fusion - Primary Arthrodesis status S/P cervical spinal fusion Arthrodesis status documented in this encounter Care Teams Lead Pharmacy Technician Relationship Specialty Start Date End Date Jose Holden MD PCP - General Otolaryngology 12/14/17 [place] [address] documented as of this encounter
--- OUTSIDE RECORDS SUMMARY | 2022-11-08 13:55 | XMS_ITS | Encounter Summary ---
:1965 Author Organization [facility] Address [address] [place] [address] Care Team Providers Name Role Phone Jose Holden MD Primary Care Provider [phone] Reason for Visit Auth/Cert Specialty Diagnoses / [...] Expiration Date Visits Requ ested Visits Authorized [id number] 1 1 Encounter Details Date Type Department Care Team Description 02/20/2018 [facility] Pete Gonzalez MD [address] [place] [address] [place] [address] [phone] (Babatunde billings) Social History Tobacco Use Types [...] 12/02/2022 Appointment Orthopedics Donald Medley MD [address] [facility] [address] [place], [place] [phone] (Wo rk) 12/31/2022 Appointment Orthopedics Donald Medley MD [address] [facility] [address] [place] [phone] [...] 12:45 PM CDT Fluoroscopy provided by a echo technologist. Exact fluoroscopy time is documented in end of exam information in EPIC Pete Gonzalez MD RAD GD documented in this encounter Visit Diagnoses Not on filedocumented in this encounter Care Teams Sliver Lap Tender Relationship Specialty Start Date End Date Jose Holden MD PCP - General Otolaryngology 12/14/17 [address] [place] [phone] documented as of this encounter
--- OUTSIDE RECORDS SUMMARY | 2022-11-08 13:55 | XMS_ITS | Encounter Summary ---
:1965 Author Organization [facility] Address [address], [place] [address] Care Team Providers Name Role Phone Jose Holden MD Primary Care Provider [phone] Encounter Details Date Type Department Care Team Description 02/13/2018 Orders Only External to Jose Holden MD [address] [place], [place] [address] (Wo rk) Social History [...] 12/02/2022 Appointment Orthopedics Donald Medley MD [address] [facility] 200 [place] [phone] (Wo rk) 12/31/2022 Appointment Orthopedics Donald Medley MD [address] [facility] [address] [place], [place] [phone] (Wo rk) documented as [...] filedocumented in this encounter Care Teams Machine Design Engineer Relationship Specialty Start Date End Date Jose Holden MD PCP - General Otolaryngology 12/14/[address] [place], [place] [address] [address] documented as of this encounter
--- OUTSIDE RECORDS SUMMARY | 2022-11-08 13:55 | XMS_ITS | Encounter Summary ---
:1965 Author Organization [facility] Address [address] [place] [address] Care Team Providers Name Role Phone Jose Holden MD Primary Care Provider [phone] Encounter Details Date Type Department Care Team Description 02/13/2018 Orders Only External to External, [place] [address] Social History Tobacco Use Types Packs/Day Years [...] [facility] [address] [place] [phone] (Wo rk) 12/31/2022 Appointment Orthopedics Donald Medley MD [address] [facility] [address] [place], [place] [phone] (Wo rk) documented as [...] filedocumented in this encounter Care Teams Sheet Heater Relationship Specialty Start Date End Date Jose Holden MD PCP - General Otolaryngology 12/14/17 [place] [address] documented as of this encounter
--- OUTSIDE RECORDS SUMMARY | 2022-11-08 13:55 | XMS_ITS | Encounter Summary ---
:1965 Author Organization [facility] Address [address] [place] [address] Care Team Providers Name Role Phone Jose [...] 12/02/2022 Appointment Orthopedics Donald Medley MD [address] [facility] [address] [place], [place] [phone] (Wo rk) 12/31/2022 Appointment Orthopedics Donald Medley MD [address] [facility] [address] [place], [place] [phone] (Wo rk) documented as [...] on filedocumented in this encounter Care Teams Electrician Supervisor Substation Relationship Specialty Start Date End Date Jose Holden MD PCP - General Otolaryngology 12/14/17 [place] [address] documented as of this encounter
--- OUTSIDE RECORDS SUMMARY | 2022-11-08 13:55 | XMS_ITS | Encounter Summary ---
:1965 Author Organization [employer] Address [address], [place] [address] Care Team Providers Name Role Phone Jose Holden MD Primary Care Provider [phone] Reason for Visit Auth/Cert Specialty Diagnoses / [...] Expiration Date Visits Requ ested Visits Authorized [id number] 1 1 Encounter Details Date Type Department Care Team Description 02/20/2018 Surgery RH Operating Room Marky Gonzalez MD FUSION POSTERIOR [address] [place] [address] [place], [place] C2-T3, REMOVAL HARDWARE [phone] [id number] SPINE Anterior plate [phone] (Wo rk) and Posterior screws and rods [...] encounter Discharge Summaries Sneha Maher, Sirisha Celaya, SUPERVISOR ANODIZING, COLLECTION COORDINATOR - 02/23/2018 9:09 AM CDT Neurosurgery Discharge [...] Course: Angie Bender was admitted to [facility] on 02/20/2018 following posterior [...] - 12.4 fl Narrative Performed at [facility], [address] [place] [address] Physical Exam: BP 124/78 Pulse 74 Temp [...] in strength to your extremeties. Neurosurgery clinic [phone]. If it is after hours, please call [...] neurosurgery RN on 03/07 at 11AM at [address] [place] [address], 2nd floor. 2. Follow up with Dr. Gonzalez/Lois Pham PA-C/Sirisha Maher NP on 04/05 at 1:00PM at [address] [place] [address]. Patient also instructed to call clinic at [phone] or hospital for any questions or concerns. Patient verbalizes understanding and states no further questions at this time. 3. Follow up with PCP for any medical issues Total time spent at the time of discharge was 30 minutes Sirisha Maher APRN, CNP Pgr#[phone] documented in this encounter Discharge Instructions Discharge InstructionsLethert, Donna J, RN - 02/23/2018 10:42 AM CDT [place] [address] General Information Discharging physician: Dr. Gonzalez [facility] Resources Emergency & Urgently Needed Care: For emergencies call 911 and/or get medical help right away. If you are a [facility] member and have medical needs after clinic hours you may call the [facility] [phone] or . Fall Prevention Recommendations ??? Follow [...] Ellis RN - 02/23/2018 11:50 AM CDT [facility] HOSPITAL Discharge Note - Nursing Admission [...] End of Report --- Sirisha Rankin APRN, COLLECTION COORDINATOR - 02/23/2018 9:02 AM CDT Neurosurgery Progress [...] including C3- T1 posterior fusion (done in [place] approx 6 years ago), with C6-T1 pseudoarthrosis, [...] Dc home today ?? Sirisha Maher APRN, COLLECTION COORDINATOR 02/23/2018, 9:02 AM Neurosurgery Pgr#[phone] Jolene Kaur PA-C - 02/22/2018 12:45 PM [...] including C3- T1 posterior fusion (done in [place] approx 6 years ago), with C6-T1 pseudoarthrosis, [...] Lois Pham PA-C, 02/22/2018, 9:05 AM Neurosurgery [phone] He Reyes MD - 02/22/2018 8:29 AM CDT Images from the original note were not included. [facility] Inpatient Pain Management Consultation Follow up [...] with any questionsor concerns. He Reyes M.D. [facility] Pain Management [phone] INTERVAL HISTORY: She started tizanidine last night [...] TIME SPENT: 35 minutes including 50% time [id number] time counseling her about her diagnosis and treatment options, and coordinating care with the primary team. DECISION-MAKING: The level of decision-making in this case is high/complex due to the complexity of medical problems, acute/chronic pain, opioid analgesia issues, and behavioral factors. He Reyes M.D. Brooklyn Whittington - 02/21/2018 1:47 PM CDT [facility] Care Management Screening Admission Info: Cognitive [...] Estephanie Franz at [facility]. No DC needs anticipated. I verified the demographics on the face sheet for the correct address, phone number, emergency contact and PCP information. Brooklyn Whittington RN CM [phone] Lois Pham PA-C - 02/21/2018 9:23 AM CDT Neurosurgery Progress Note Date of service: 02/21/2018 Subjective: Feels sore. Upset she did not have SENIOR INSIGHT MANAGER overnight. Wants to go smoke. Wants [...] including C3- T1 posterior fusion (done in [place] approx 6 years ago), with C6-T1 pseudoarthrosis, [...] there were a couple of options including SENIOR INSIGHT MANAGER vs IV pain medications for post op pain control, and rationale for non SENIOR INSIGHT MANAGER at this time. Did discuss that would not recommend DC as drain still has high output. Upright xrays prior to DC Up with assistance Continue hemovac until <30/shift Soft collar when OOB, PRN in bed for comfort PT/OT Dispo: Anticipate home in next 1-2 days pending drain output Lois Pham PA-C, 02/21/2018, 9:23 AM Neurosurgery [phone] He Reyes MD - 02/20/2018 1:[address] Note from Dr. Covarrubias on 02/13/18: ? 1. On the day of surgery please order an Inpatient pain consult 2. Ketamine 5mg/h during surgery ?? Recommendations for opioids: ?? If using a SENIOR INSIGHT MANAGER: No oral opioids Start a SENIOR INSIGHT MANAGER pump with Dilaudid continuous IV infusion at a basal rate of 0.1 mg/hr with SENIOR INSIGHT MANAGER boluses of 0.2-0.4 mg every 10 minutes. ?? If not using a SENIOR INSIGHT MANAGER: Start dilaudid 2-4mg q3h prn (alternatively [...] Pham PA-C - 02/20/2018 3:24 PM CDT [facility] Brief Operative Progress Note Surgery Date: 02/20/2018 Surgeon(s) and Role: * Marky Gonzalez MD - Primary PHYSICIAN DRUM SPRAYER-Meka Pham Pre-op Diagnosis: * Cervical spondylosis with [...] was medically necessary for an administrative assistant coordinator because Dr. Gonzalez needed the operative exposure [...] Lois Pham PA-C, 02/20/2018, 3:25 PM Neurosurgery [phone] Marky Gonzalez MD - 02/20/2018 12:00 AM CDT ANGIE BENDER [facility]: [phone] OPERATIVE REPORT DATE OF SURGERY: 02/20/2018 : 1965 SURGEON: MARKY GONZALEZ MD DRUM SPRAYER: Lois Pham PA-C. PREOPERATIVE DIAGNOSES: 1. Status [...] stepwise fashion using absorbable suture. We placed [employer] tongs and then flipped the patient prone [...] all critical portions. MARKY GONZALEZ MD MMK/MODL /[id number] cc: MARKY GONZALEZ MD documented in this [...] the risk. She has been on these ferry terminal agent, desires to eventually come off. She also [...] with any questionsor concerns. He Reyes M.D. [facility] Pain Management [phone] HISTORY OF PRESENT ILLNESS: Per Chart Review: [...] headache Opioid prescriber: Rosetta Martin-LEDY Jerry MD-valium [facility] database review: Risk Factors: History [...] Lois Pham PA-C ??? glucose-ascorbic acid (aka [id number]) chewable tablet 4 Tab 4 Tab Oral [...] 3 mL 3 mL Intravenous Q8H Lois Phma PA-C ? ? sodium chloride 0.9% injection [...] TIME SPENT: 70 minutes including 50% time [id number] time counseling her about her diagnosis and treatment options, and coordinating care with the primary team. DECISION-MAKING: The level of decision-making in this case is high/complex due to the complexity of medical problems, acute/chronic pain, opioid analgesia issues, and behavioral factors. documented in this encounter Miscellaneous Notes OR Nursing - Monica Pate RN - 02/20/2018 2:49 PM CDT [facility] Progress Note Patient Name: Angie Bender Date of : 1965 8 screws, 6 caps, and 1 plate removed from cervical spine and sent to reprocessing to be returned topatient. Monica Pate RN 02/20/2018 at 2:49 PM documented in this encounter Plan of Treatment Upcoming Encounters Date Type Specialty Care Team Description 12/02/2022 Appointment Orthopedics Donald Medley MD [address] [facility] [address] [place] [phone] (Wo rk) 12/31/2022 Appointment Orthopedics Donald Medley MD [address] [facility] [address] [place] [phone] (Wo rk) Scheduled Referrals Name Type Priority [...] failure. Anatomic alignment. Shoulder prosthesis. Sirisha Maher SUPERVISOR ANODIZING, COLLECTION COORDINATOR RAD GD (ABNORMAL) Complete Blood Count-No Diff [...] % HOSPITAL Platelets 183 150 - 450 [facility] k/ul HOSPITAL MPV 10.6 9.4 - 12.4 [facility] HOSPITAL Specimen Anatomical Collection Method Collection Time Receive d Time (Source) Location / / Volume Laterality 02/22/2018 12:36 02/22/2018 PM CDT 12:37 PM CDT Narrative [facility] - 02/22/2018 12:46 PM C DT Performed at [facility] , [address] [place] [address] Lois Pham PA-C LAB_1 Performing Organization Address City/State/ZIP Code Phon e Number [address] [address], [facility] XR Cervical Spine AP/Lat Upright (02/21/2018 [...] Organization Address City/State/[place] [address] [place] [address], [facility] [phone] (ABNORMAL) Basic Metabolic Panel (02/21/2018 7:12 AM [...] AM 8 7:13 CDT AM CDT Narrative [facility] - 02/21/2018 7:47 AM CD T Performed at [facility] , [address] [place] [address] Lois Pham PA-C LAB_1 Performing Organization Address [facility] Phon e Number [address] [address], [facility] [phone] (ABNORMAL) Hemogram with Plts (02/21/2018 7:12 AM CDT) athologist Signature WBC 10.0 4.0 - 11.0 [facility] RBC 3.29 (L) 4.0 - 5.2 [facility] Hemoglobin 10.7 (L) 12.0 - 16.0 [facility] g/dl [facility] HCT 32.2 (L) 36.0 - 46.0 [facility] MCV 97.9 80 - 100 fl [facility] MCH 32.5 26 - 34 pg [facility] MCHC 33.2 32 - 36 [facility] g/dl [facility] RDW 13.9 11.5 - 14.5 [facility] Platelets 186 150 - 450 [facility] MPV 10.3 9.4 - 12.4 [facility] Specimen Anatomical Collection Method Collection Time Receive d Time (Source) Location / / Volume Laterality 02/21/2018 7:12 AM 8 7:13 CDT AM CDT Narrative [facility] - 02/21/2018 7:26 AM CD T Performed at [facility] , [address] [place] [address] Lois Pham PA-C LAB_1 Performing Organization Address City/[facility] Phon e Number [address] [address] [place] [address], [facility] Glucose, Whole Blood POC (02/20/2018 11:20 PM CDT) athologist Signature Glucose, Whole 140 70 - 180 [facility] Blood mg/dl HOSPITAL Comment: Point of Care Testing No Action Required Specimen Anatomical Collection Method Collection Time Receive d Time (Source) Location / / Volume Laterality 02/20/2018 11:20 02/20/2018 PM CDT 11:26 PM CDT Marky Gonzalez MD LAB_1 Performing Organization Address [facility]/ZIP [facility] Phon e Number [address] [address], [facility] Glucose, Whole Blood POC (02/20/2018 5:05 PM CDT) athologist Signature Glucose, Whole 145 70 - 180 [facility] mg/dl [facility]OSPITAL Comment: Point of Care Testing No Action Required Specimen Anatomical Collection Method Collection Time Receive d Time (Source) Location / / Volume Laterality 02/20/2018 5:05 PM 8 5:25 CDT PM CDT Marky Gonzalez MD LAB_1 Performing Organization Address City/[facility] Phon e Number [address] [address], [facility] [phone] Glucose, Whole Blood POC (02/20/2018 3:45 PM CDT) athologist Signature Glucose, Whole 145 70 - 180 [facility] Blood mg/dl HOSPITAL Comment: Point of Care Testing No Action Required Specimen Anatomical Collection Method Collection Time Receive d Time (Source) Location / / Volume Laterality 02/20/2018 3:45 PM 8 3:52 CDT PM CDT Marky Gonzalez MD LAB_1 Performing Organization Address City/[facility]/ZIP [facility] Phon e Number [address] [address], [facility] XR C-Arm 0-30 Minutes (02/20/2018 2:05 PM CDT) Anatomical Region Laterality Modality Other Specimen (Source) Anatomical Location Collection Method / Collectio n Time Received Time / Laterality Volume Narrative 02/20/2018 2:06 PM CDT Fluoroscopy provided by a space technologist. Exact fluoroscopy time is documented in end of exam information in EPIC Marky Gonzalez MD RAD GD XR C-Arm 2.5-3 Hours (02/20/2018 12:45 PM CDT) Anatomical Region Laterality Modality Other Specimen (Source) Anatomical Location Collection Method / Collectio n Time Received Time / Laterality Volume Narrative 02/20/2018 12:45 PM CDT Fluoroscopy provided by a space technologist. Exact fluoroscopy time is documented in end of exam information in EPIC Marky Gonzalez MD RAD GD XR C-Arm 30-59 Minutes (02/20/2018 12:36 PM CDT) Anatomical Region Laterality Modality Other Specimen (Source) Anatomical Location Collection Method / Collectio n Time Received Time / Laterality Volume Narrative 02/20/2018 12:36 PM CDT Fluoroscopy provided by a space technologist. Exact fluoroscopy time is documented in end of exam information in EPIC Marky Gonzalez MD RAD GD Glucose, Whole Blood POC (02/20/2018 9:02 AM CDT) athologist Signature Glucose, Whole 135 70 - 180 [facility] Blood mg/dl [facility] Comment: Point of Care Testing RN Notified Specimen Anatomical Collection Method Collection Time Receive d Time (Source) Location / / Volume Laterality 02/20/2018 9:02 AM 8 9:08 CDT AM CDT Marky Gonzalez MD LAB_1 Performing Organization Address City/[facility]/ZIP Code Phon e Number [address] [address] [place] [address], [facility] Glucose, Whole Blood POC (02/20/2018 6:25 AM CDT) athologist Signature Glucose, Whole 90 70 - 180 [facility] Blood mg/dl HOSPITAL Specimen Anatomical Collection Method Collection Time Receive d Time (Source) Location / / Volume Laterality 02/20/2018 6:25 AM 8 6:34 CDT AM CDT Marky Gonzalez MD LAB_1 Performing Organization Address [facility] Phon e Number [address] [address] [place] [address], [facility] ABO/RH(D) Retype (02/20/2018 6:22 AM CDT) athologist Signature ABO/RH(D) A NEGATIVE [facility] Specimen Anatomical Collection Method Collection Time Receive d Time (Source) Location / / Volume Laterality 02/20/2018 6:22 AM 8 6:25 CDT AM CDT [facility] - 02/20/2018 7:06 AM CD T Performed at [facility] , [address] [place] [address] Marky Gonzalez MD LAB_1 Performing Organization Address City/[facility] Phon e Number [address] [address], [facility] [phone] INR/Protime (PT/INR) (02/20/2018 6:08 AM CDT) athologist Signature Protime 13.0 12.0 - 14.5 [facility] INR 1.0 0.9 - 1.1 [facility] Specimen Anatomical Collection Method Collection Time Receive d Time (Source) Location / / Volume Laterality 02/20/2018 6:08 AM 8 6:22 CDT AM CDT [facility] - 02/20/2018 6:40 AM CD T Performed at [facility] , [address] [place] [address] Sirisha Maher APRN, CNP LAB_1 Performing Organization Address [facility] Phon e Number [address] [address] [place] [address], [facility] Hemogram with Platelets (02/20/2018 6:08 AM CDT) athologist Signature WBC 6.7 4.0 - 11.0 [facility] k/ul HOSPITAL RBC 4.13 4.0 - 5.2 [facility] M/ul HOSPITAL Hemoglobin 13.5 12.0 - 16.0 [facility] g/dl HOSPITAL HCT 39.8 36.0 - 46.0 [facility]OSPITAL MCV 96.4 80 - 100 fl [facility] MCH 32.7 26 - 34 pg [facility] MCHC 33.9 32 - 36 [facility] g/dl HOSPITAL RDW 13.8 11.5 - 14.5 [facility] % HOSPITAL Platelets 245 150 - 450 [facility] k/ul HOSPITAL MPV 10.6 9.4 - 12.4 [facility] Specimen Anatomical Collection Method Collection Time Receive d Time (Source) Location / / Volume Laterality 02/20/2018 6:08 AM 8 6:22 CDT AM CDT [facility] - 02/20/2018 6:32 AM CD T Performed at [facility] , [address] [place] [address] Sirisha Maher APRN COLLECTION COORDINATOR LAB_1 Performing Organization Address City/[facility] Phon e Number [id number] [place] [address] (ABNORMAL) Basic Metabolic Panel (02/20/2018 6:08 AM CDT) athologist Signature Sodium 139 136 - 145 [facility] mmol/L [facility] Potassium 4.4 3.5 - 5.1 [facility] mmol/L [facility] Comment: Specimen Slightly Hemolyzed Hemolysis May Affect Result Chloride 109 98 - 109 mmol/L [facility] CO2 18 (L) 20 - 29 mmol/L [facility] L Anion Gap (calc.) 12 7 - 16 mmol/L [facility] Glucose 96 70 - 180 mg/dl [facility] L Calcium 9.4 8.4 - 10.2 mg/dl [facility] EHSAN BUN 14 7 - 26 mg/dl [facility] Creatinine 0.69 0.55 - 1.02 mg/dl [facility] HOS PITAL GFR, Estimated >60 >60 ml/min/1.73m2 [facility] GFR, Est., If Black >60 >60 ml/min/1.73m2 [facility] Specimen Anatomical Collection Method Collection Time Receive d Time (Source) Location / / Volume Laterality 02/20/2018 6:08 AM 8 6:22 CDT AM CDT [facility] - 02/20/2018 6:52 AM CD T Performed at [facility] , [address] [place] [address] Sirisha Maher APRN, COLLECTION COORDINATOR LAB_1 Performing Organization Address [facility] Phon e Number [address] [address] [place] [phone], [facility] aPTT (Activated Partial Thromboplastin Time) (02/20/2018 6:08 AM CDT) P athologist Signature PTT 26.8 24.0 - 37.0 [facility] Specimen Anatomical Collection Method Collection Time Receive d Time (Source) Location / / Volume Laterality 02/20/2018 6:08 AM 8 6:22 CDT AM CDT Narrative [facility] - 02/20/2018 6:40 AM CD T Performed at [facility] , [address] [place] [address] Sirisha Maher APRN, CNP LAB_1 Performing Organization Address City/[facility]/ZIP [facility] Phon e Number [address] [address], [facility] ABO Rh & Antibody Screen (Type & Screen) (02/20/2018 6:07 AM CDT) [facility] Method Time Signature Crossmatch 02/23/2018 [facility] ABO/RH(D) A NEGATIVE [facility] Antibody Screen NEGATIVE [facility] Specimen Anatomical Collection Method Collection Time Receive d Time (Source) Location / / Volume Laterality 02/20/2018 6:07 AM 8 6:22 CDT AM CDT Narrative [facility] - 02/20/2018 7:10 AM CD T Performed at [facility] , [address] [place] [address] Sirisha Maher APRN COLLECTION COORDINATOR LAB_1 Performing Organization Address City/[facility]/ZIP Code Phon e Number [address] [address], [facility] EKG IP (02/20/2018 12:00 AM CDT) [...] Segura RN - 02/23/2018 9:57 AM CDT [facility] Plan of Care Note Assessment: Incisions [...] Carbajal RN - 02/23/2018 7:43 AM CDT [facility] Plan of Care Note Assessment: pain [...] Rico RN - 02/22/2018 10:15 PM CDT [facility] Plan of Care Note Assessment: comfort [...] Rico RN - 02/22/2018 4:00 PM CDT [facility]. MD Notified Note Name of MD notified: Ankit Time of MD notification: 1600 hours and 1 minute Reason: Pt.asking for valium now and current order for HS prn. [facility] review. [id number]. Response: Valium one time dose now and HS prn. Shawn Butcher RN --- End of Report --- Plan of Care - Alec Gifford RN - 02/22/2018 1:57 PM CDT [facility] Plan of Care Note Assessment: pain [...] Lundberg RN - 02/22/2018 2:32 AM CDT [facility] Plan of Care Note Assessment: Pain [...] Orellana RN - 02/22/2018 12:33 AM CDT [facility] Plan of Care Note Assessment: Pain [...] Gifford RN - 02/21/2018 1:41 PM CDT [facility] Plan of Care Note Assessment: pain [...] Lundberg RN - 02/21/2018 4:56 AM CDT [facility]. MD Notified Note Name of MD notified: Neurosurg Time of MD notification: 0400 hours and 55 minutes Reason: [id number]- Pt reporting oral/IV pain meds ineffective. Pt upset, req further intervention. Please advise. Thanks. Response: Discussed w/ neurosurg. To be addressed in AM and PRNs to continue to be administered as able. Anita Lundberg RN --- End of Report --- Plan of Care - Anita Lundberg RN - 02/21/2018 2:26 AM CDT [facility] Plan of Care Note Assessment: Pain [...] Control/Comfort Level unable to achieve outcome Comments: [facility]PITAL Plan of Care Note Assessment: posterior neck pain worst than anterior Plan: IHR, assessment, pain control Subjective: I thought that I was going to be on a dilaudid drip Objective: Pt angry that she was not on a SENIOR INSIGHT MANAGER pump, Dilaudid PO and IV given [...] 10:32 AM CDT 2 Patches lidocaine-epinephrine 1 %-1:[id number] injec tion Given 02/20/2018 10:21 AM CDT [...] HS
documented in this encounter Care Teams Glass Furnace Operator Relationship Specialty Start Date End Date Jose Holden MD PCP - General Otolaryngology 12/14/[address] [place] [address] documented as of this encounter
--- OUTSIDE RECORDS SUMMARY | 2022-11-08 13:55 | XMS_ITS | Encounter Summary ---
:1965 Author Organization [facility] Address [address] [place] [address] Care Team Providers Name Role Phone Jose Holden MD Primary Care Provider [phone] Encounter Details Date Type Department Care Team Description 02/13/2018 Orders Only External to External, [place] [address] Social History Tobacco Use Types Packs/Day Years [...] 12/02/2022 Appointment Orthopedics Donald Medley MD [address] [facility] [address] [place] [address] [phone] (Wo rk) 12/31/2022 Appointment Orthopedics Donald Medley MD [address] [facility] [address] [place], [place] [phone] (Wo rk) documented as [...] on filedocumented in this encounter Care Teams Lav Crewman Relationship Specialty Start Date End Date Jose Holden MD PCP - General Otolaryngology 12/14/17 [place] [address] documented as of this encounter
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
--- OUTSIDE RECORDS SUMMARY | 2022-11-08 13:55 | XMS_ITS | Encounter Summary ---
:1965 Author Organization [facility] Address [address] [place] [address] Care Team Providers Name Role Phone Jose Holden MD Primary Care Provider [phone] Reason for Visit Auth/Cert Specialty Diagnoses / [...] Expiration Date Visits Requ ested Visits Authorized [id number] 1 1 Encounter Details Date Type Department Care Team Description 02/20/2018 [facility] Pete Gonzalez MD [address] [place] [address] [place] [address] [phone] (Babatunde billings) Social History Tobacco Use Types [...] 12/02/2022 Appointment Orthopedics Donald Medley MD [address] [facility] 200 [place], [place] [phone] (Wo rk) 12/31/2022 Appointment Orthopedics Donald Medley MD [address] [facility] [address] [place] [phone] (Wo rk) documented as of this encounter Visit Diagnoses Not on filedocumented in this encounter Care Teams Corporate Events Director Relationship Specialty Start Date End Date Jose Holden MD PCP - General Otolaryngology 12/14/[address] [facility] [facility] [place] [id number] documented as of this encounter
--- OUTSIDE RECORDS SUMMARY | 2022-11-08 13:55 | XMS_ITS | Encounter Summary ---
:1965 Author Organization [facility] Address [address], [place] [address] Care Team Providers Name Role Phone Jose Holden MD Primary Care Provider [phone] Encounter Details Date Type Department Care Team Description 02/14/2018 [facility]phone [facility] Chava Simon RN [place] [facility]ine [address] [place] [phone] Social History Tobacco Use Types Packs/Day Years Used Date Smoking Tobacco: Every Day Cigarettes 0.5 30 Smokeless Tobacco: Never Comments: 30 year smoker on and off, 0.5 a day Alcohol Use Standard Drinks/Week Comments No 0 (1 standard drink = 0.6 oz pure alcoho l) Sex Assigned at Date Recorded Not on file documented as of this encounter Nursing Notes Chava iSmon RN - 02/14/2018 3:18 PM CDT Preop received and patient is clear for surgery. Chava Simon RN 02/14/2018, 3:19 PM Hang, You X - 02/14/2018 10:04 AM CDT Patient calling in to verify if we have received her preop yet. Administrative Aide relayed we have not. Patient was given [phone] to have preop be faxed to us. Patient states she already talked to them and they said they already sent it but she will reach out to them again. Will await a return call from patient/watch out for fax. Michael Cruz 02/14/2018, 10:06 AM Chava Simon RN - 02/14/2018 9:11 AM CDT I still have not received patient's preop from [facility]. Could you please call patient and make sure she has had it faxed to us? Chava Simon RN 02/14/2018, 9:11 AM documented in this encounter Plan of Treatment Upcoming Encounters Date Type Specialty Care Team Description 12/02/2022 Appointment Orthopedics Donald Medley MD [address] [facility] 200 [place], [place] [phone] (Wo rk) 12/31/2022 Appointment Orthopedics Donald Medley MD [address] [facility] [address] [place] [phone] (Wo rk) documented as of this encounter Visit Diagnoses Not on filedocumented in this encounter Care Teams Telecommunications Network Engineer Relationship Specialty Start Date End Date Jose Holden MD PCP - General Otolaryngology 12/14/17 [facility] [place] [address] documented as of this encounter
--- OUTSIDE RECORDS SUMMARY | 2022-11-08 13:55 | XMS_ITS | Encounter Summary ---
:1965 Author Organization [employer] [facility] Address [address] [place] [address] Care Team Providers Name Role Phone Jose Holden MD Primary Care Provider [phone] Reason for Visit Auth/Cert Specialty Diagnoses / [...] Expiration Date Visits Requ ested Visits Authorized [id number] 1 1 Encounter Details Date Type Department Care Team Description 02/20/2018 [facility] Pete Gonzalez MD [address] [place] [address] [place] [address] [phone] (Babatunde billings) Social History Tobacco Use Types [...] 12/02/2022 Appointment Orthopedics Donald Medley MD [address]01 [facility] 200 [place], [place] [phone] (Wo rk) 12/31/2022 Appointment Orthopedics Donald Medley MD 1601 [facility] [address] [place] [phone] [...] filedocumented in this encounter Care Teams Senior Developer Relationship Specialty Start Date End Date Jose Holden MD PCP - General Otolaryngology 12/14/17 [address] [place] [address] documented as of this encounter
--- OUTSIDE RECORDS SUMMARY | 2022-11-08 13:55 | XMS_ITS | Encounter Summary ---
:1965 Author Organization [facility] Address [address] [place] [address] Care Team Providers Name Role Phone Jose Holden MD Primary Care Provider [phone] Encounter Details Date Type Department Care Team Description 02/07/2018 Prep for [facility] S[facility]ha Maher, [facility] Sirisha L, APR N, METAL FURNITURE ASSEMBLER Neurosurgery/Ortho [place] [address] [place] [address] [place] [address] [phone] Social History Tobacco Use Types Packs/Day Years [...] Description 12/02/2022 [place] [address] [place] [phone] (Wo rk) 12/31/2022 Appointment Orthopedics Donald Medley MD 1601 [facility] 200 [place], [place] [phone] (Wo rk) documented as of this encounter Visit Diagnoses Not on filedocumented in this encounter Care Teams Risk Management Analyst Relationship Specialty Start Date End Date Jose Holden MD PCP - General Otolaryngology 12/14/17 [place] [address] documented as of this encounter
--- OUTSIDE RECORDS SUMMARY | 2022-11-08 13:55 | XMS_ITS | Encounter Summary ---
:1965 Author Organization [facility] Address [address], [place] [address] Care Team Providers Name Role Phone Jose Holden MD Primary Care Provider [phone] Reason for Visit Reason Comments CONSULT POPC-dos 02-20 w/Dr Gonzalez Encounter Details Date Type Department Care Team Description 02/13/2018 Office Visit Stew Mcghee of Neuroscience Center Raul Stover MD cervical region Management [address] without myelopathy or [address] [place], [place] radiculopathy ([place] [address] Dx) [phone] Social History Tobacco Use Types Packs/Day Years [...] some medicines that are opioids: ??? Hydrocodone ([place], Vicodin, Lortab) ??? Oxycodone (OxyContin, Percocet) ??? [...] before you use any other medicines, including yrmd-umz-yhmeagw medicines. Make sure my care team knows [...] team or apharmacist. You can also visit [facility] or [facility] and search medicine disposalto learn about drug disposal. You may also call the Drug Enforcement Administration (BARBY) Office of Diversion Control's Registration Call Center at to find an authorized trash collector in your community. ??? If your [...] Content Version: 10.9 Custom: HP/PN 6-16 ?? [id number] [employer] Stew Covarrubias MD documented in this [...] experiences A lot of 'bad' surgeries in [place] Past Medical History: Diagnosis Date ??? Acne ??? Allergy ??? Anxiety disorder (HRC) ??? Arthritis ??? Asthma (HRC) ??? Bipolar 1 disorder (HRC) ??? COPD (chronic obstructive pulmonary disease) (HRC) ??? Depression (HRC) ??? Ear infection ??? Infection of the inner ear, left ? ? Nausea & vomiting ??? Sinusitis No past surgical history on file. HORSE EXERCISER Review: Allergies: Allergies Allergen Reactions ??? Adhesive [...] surgery Recommendations for opioids: If using a BESSEMER CONVERTER BLOWER: No oral opioids Start a BESSEMER CONVERTER BLOWER pump with Dilaudid continuous IV infusion at a basal rate of 0.1 mg/hr with BESSEMER CONVERTER BLOWER boluses of 0.2-0.4 mg every 10 minutes. 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
--- OUTSIDE RECORDS SUMMARY | 2022-11-08 13:55 | XMS_ITS | Encounter Summary ---
:1965 Author Organization [facility] Address [address] [place] [address] Care Team Providers Name Role Phone Jose Holden MD Primary Care Provider [phone] Reason for Visit Auth/Cert Specialty Diagnoses / [...] Expiration Date Visits Requ ested Visits Authorized [id number] 1 1 Encounter Details Date Type Department Care Team Description 02/20/2018 [facility] Pete Gonzalez MD [address] [place] [address] [place] [address] [phone] (Babatunde billings) Social History Tobacco Use Types [...] MD 1601 [facility] 200 [place], [place] [phone] (Wo rk) 12/31/2022 Appointment Orthopedics Donald Medley MD [address] [facility] [address] [place] [address] [...] 2:06 PM CDT Fluoroscopy provided by a interventional radiology tech. Exact fluoroscopy time is documented in end of exam information in EPIC Pete Gonzalez MD RAD GD documented in this encounter Visit Diagnoses Not on filedocumented in this encounter Care Teams Stripper Color Relationship Specialty Start Date End Date Jose Holden MD PCP - General Otolaryngology 12/14/17 [place] [address] documented as of this encounter
--- OUTSIDE RECORDS SUMMARY | 2022-11-08 13:55 | XMS_ITS | Encounter Summary ---
:1965 Author Organization [facility] Address [address] [place] [address] Care Team Providers Name Role Phone Jose Holden MD Primary Care Provider [phone] Encounter Details Date Type Department Care Team [...] Medley MD 1601 [facility] 200 [place], [place] [phone] (Wo rk) 12/31/2022 Appointment Orthopedics Donald Medley MD [address] [facility] 200 [place], [place] [phone] (Wo rk) documented as of this encounter Visit Diagnoses Not on filedocumented in this encounter Care Teams Youth Manager Relationship Specialty Start Date End Date Jose Holden MD PCP - General Otolaryngology 12/14/17 [address] [place], [place] [phone] documented as of this encounter
--- OUTSIDE RECORDS SUMMARY | 2022-11-08 13:55 | XMS_ITS | Encounter Summary ---
:1965 Author Organization [facility] Address [address] [place] [address] Care Team Providers Name Role Phone Jose Holden MD Primary Care Provider [phone] Reason for Visit Auth/Cert Specialty Diagnoses / [...] Expiration Date Visits Requ ested Visits Authorized [id number] 1 1 Encounter Details Date Type Department Care Team Description 02/21/2018 [facility] Pete Gonzalez MD [address] [place] [address] [place] [address] [phone] (Babatunde billings) Social History Tobacco Use Types [...] 12/02/2022 Appointment Orthopedics Donald Medley MD [address] [facility] 200 [place], [place] [phone] (Wo rk) 12/31/2022 Appointment Orthopedics Donald Medley MD [address] [facility] [address] [place] [phone] [...] on filedocumented in this encounter Care Teams Eeo Officer Relationship Specialty Start Date End Date Jose Holden MD PCP - General Otolaryngology 12/14/[address] [place] [address] documented as of this encounter
--- OUTSIDE RECORDS SUMMARY | 2022-11-08 13:55 | XMS_ITS | Encounter Summary ---
:1965 [facility] Address [address], [place] [address] Care Team Providers Name Role Phone Jose Holden MD Primary Care Provider [phone] Reason for Referral Procedure/Equipment (Routine) - Incomplete Specialty Diagnoses / Procedures Referred By Contact Refer red To Contact Diagnoses Cervical spondylosis with radiculopathy (HRC) Sirisha Rankin, Procedures XR Cervical Spine AP/Lat Upright [address] [place] [address] Referral ID Status Reason Start Date Expiration Date Visits V isits Requested Authorized [id number] Incomplete 02/21/2018 05/23/2019 1 1 (Routine) Specialty Diagnoses / Procedures Referred By Contact Refer red To Contact Sirisha Rankin, K[address] SH[address] [place] [address] Referral ID Status Reason Start Date Expiration Date Visits Requ ested Visits Authorized (Routine) - Incomplete Specialty Diagnoses / Procedures Referred By Contact Refer red To Contact Procedures Marky Gonzalez MD XR C-Arm 0-30 Minutes [address] [place] [address] Referral ID Status Reason Start Date Expiration Date Visits V isits Requested Authorized [id number] Incomplete 02/20/2018 05/22/2019 1 1 Procedure/Equipment (Routine) - Incomplete Specialty Diagnoses / Procedures Referred By Contact Refer red To Contact Procedures Lois Pham PA-C XR Cervical Spine AP/Lat [address] [place], [place] [address] Referral ID Status Reason Start Date Expiration Date Visits V isits Requested Authorized [id number] Incomplete 02/20/2018 05/22/2019 1 1 (Routine) - Incomplete Specialty Diagnoses / Procedures Referred By Contact Refer red To Contact Procedures Marky Gonzalez MD XR C-Arm 30-[address] [place] [address] XR C-Arm 0-30 Minutes [place], [place] [address] Referral ID Status Reason Start Date Expiration Date Visits V isits Requested Authorized [id number] Incomplete 02/20/2018 05/22/2019 1 1 (Routine) - Incomplete Specialty Diagnoses / Procedures Referred By Contact Refer red To Contact Procedures Marky Gonzalez MD XR C-Arm 2.5-3 Hours [address] [place] [address] Referral ID Status Reason Start Date Expiration Date Visits V isits Requested Authorized [id number] Incomplete 02/20/2018 05/22/2019 1 1 Reason for [...] Expiration Date Visits Requ ested Visits Authorized [id number] 1 1 Encounter Details Date Type Department Care Team Description 02/20/2018 - Hospital S10 Marky Gonzalez Carole, Cervical spondylosis with ra diculopathy (Primary Dx); 02/23/2018 Encounter [address] Mes[address] Ervin MD Cervical vertebral fusion; REID Carrasquillo [address] [place] 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 ([facility]); [address] Neck pain; [phone] [facility], Screening procedure; [place] [address] Pseudarthrosis after fusion or arthrodes is; [phone] Bipolar II diso rder ([facility]); (Work) Moderate persistent asthma without [...] in this encounter Discharge Summaries Sirisha Rankin, GLOBAL RECRUITER, RIVERBOAT MASTER - 02/23/2018 9:09 AM CDT Neurosurgery Discharge [...] Hospital Course: Angie Bender was admitted to [facility] on 02/20/2018 following posterior C2-T3 [...] 9.4 - 12.4 fl Narrative Performed at [facility], [address] [place] [id number] Physical Exam: BP 124/78 Pulse 74 Temp [...] in strength to your extremeties. Neurosurgery clinic [phone]. If it is after hours, please call [...] RN on 03/07 at 11AM at [facility], 2nd floor. 2. Follow up with Dr. Gonzalez/Lois Pham PA-C/Sirisha Maher NP on 04/05 at 1:00PM at [address] [facility]. Patient also instructed to call clinic at [phone] or hospital for any questions or concerns. Patient verbalizes understanding and states no further questions at this time. 3. Follow up with PCP for any medical issues Total time spent at the time of discharge was 30 minutes Sirisha Maher APRN, CNP Pgr#[phone] documented in this encounter Discharge Instructions Discharge InstructionsDonna Ellis RN - 02/23/2018 10:42 AM CDT Hospital Contact Information [address] [address] General Information Discharging physician: Dr. Gonzalez [facility] Resources Emergency & Urgently Needed Care: For emergencies call 911 and/or get medical help right away. If you are a [facility] member and have medical needs after clinic hours you may call the [facility] [phone] or . Fall Prevention Recommendations ??? Follow [...] of Report --- Sneha Maher, Sirisha Celaya, GLOBAL RECRUITER, RIVERBOAT MASTER - 02/23/2018 9:02 AM CDT Neurosurgery Progress [...] including C3- T1 posterior fusion (done in [place] approx 6 years ago), with C6-T1 pseudoarthrosis, [...] Dc home today ?? Sirisha Maher, NIKKY, RIVERBOAT MASTER 02/23/2018, 9:02 AM Neurosurgery Pgr#[phone] Jolene Kaur PA-C - 02/22/2018 12:45 PM [...] including C3- T1 posterior fusion (done in [place] approx 6 years ago), with C6-T1 pseudoarthrosis, [...] Lois Pham PA-C, 02/22/2018, 9:05 AM Neurosurgery [phone] He Reyes MD - 02/22/2018 8:29 AM [...] He Reyes M.D. [facility] [phone] INTERVAL HISTORY: She started tizanidine last night [...] 150 mg 150 mg Oral Daily JefryBeryl joe A 150 mg at 02/22/18 0743 [...] TIME SPENT: 35 minutes including 50% time [id number] time counseling her about her diagnosis and [...] and PCP information. Brooklyn Whittington RN CM [phone] Lois Pham PA-C - 02/21/2018 9:23 AM CDT Neurosurgery Progress Note Date of service: 02/21/2018 Subjective: Feels sore. Upset she did not have WATER QUALITY TECHNICIAN overnight. Wants to go smoke. Wants [...] including C3- T1 posterior fusion (done in [place] approx 6 years ago), with C6-T1 pseudoarthrosis, [...] there were a couple of options including WATER QUALITY TECHNICIAN vs IV pain medications for post op pain control, and rationale for non WATER QUALITY TECHNICIAN at this time. Did discuss that would not recommend DC as drain still has high output. Upright xrays prior to DC Up with assistance Continue hemovac until <30/shift Soft collar when OOB, PRN in bed for comfort PT/OT Dispo: Anticipate home in next 1-2 days pending drain output Lois Pham PA-C, 02/21/2018, 9:23 AM Neurosurgery [phone] He Reyes MD - 02/20/2018 1:[address] Note from Dr[address] Covarrubias on 02/13/18: ? 1. On the day of surgery please order an Inpatient pain consult 2. Ketamine 5mg/h during surgery ?? Recommendations for opioids: ?? If using a WATER QUALITY TECHNICIAN: No oral opioids Start a WATER QUALITY TECHNICIAN pump with Dilaudid continuous IV infusion at a basal rate of 0.1 mg/hr with WATER QUALITY TECHNICIAN boluses of 0.2-0.4 mg every 10 minutes. ?? If not using a WATER QUALITY TECHNICIAN: Start dilaudid 2-4mg q3h prn (alternatively [...] Pham PA-C - 02/20/2018 3:24 PM CDT [facility] Brief Operative Progress Note Surgery Date: 02/20/2018 Surgeon(s) and Role: * Marky Gonzalez MD - Primary PHYSICIAN MEAT PASSER-Meka Pham Pre-op Diagnosis: * Cervical spondylosis with [...] The procedure was medically necessary for an programs assistant because Dr. Gonzalez needed the operative [...] Lois Pham PA-C, 02/20/2018, 3:25 PM Neurosurgery [phone] Marky Gonzalez MD - 02/20/2018 12:00 AM CDT ANGIE BENDER CSN: [id number] OPERATIVE REPORT DATE OF SURGERY: 02/20/2018 : 1965 SURGEON: MARKY GONZALEZ MD MEAT PASSER: Lois Pham PA-C. PREOPERATIVE DIAGNOSES: 1. Status [...] performing all critical portions. MD YOLANDE COLEMAN/TINAL /[id number] cc: MARKY GONZALEZ MD documented in this [...] risk. She has been on these long chain beamer, desires to eventually come off. She also [...] He Reyes M.D. [facility] [phone] HISTORY OF PRESENT ILLNESS: Per Chart Review: [...] headache Opioid prescriber: Rosetta Martin-LEDY Jerry MD-valium [facility] database review: Risk Factors: [...] Lois Pham PA-C ??? glucose-ascorbic acid (aka [id number]) chewable tablet 4 Tab 4 Tab Oral [...] or labdraw Lois Pham PA-C No current [facility]. LABORATORY VALUES: Last [...] TIME SPENT: 70 minutes including 50% time [id number] time counseling her about her diagnosis and treatment options, and coordinating care with the primary team. DECISION-MAKING: The level of decision-making in this case is high/complex due to the complexity of medical problems, acute/chronic pain, opioid analgesia issues, and behavioral factors. documented in this encounter Miscellaneous Notes OR Nursing - Monica Pate RN - 02/20/2018 2:49 PM CDT [facility] Progress Note Patient Name: Angie Bender Date of : 1965 8 screws, 6 caps, and 1 plate removed from cervical spine and sent to reprocessing to be returned topatient. Monica Pate RN 02/20/2018 at 2:49 PM documented in this encounter Plan of Treatment Upcoming Encounters Date Type Specialty Care Team Description 12/02/2022 Appointment Orthopedics Donald Medley MD [address] [place] [phone] (Wo rk) 12/31/2022 Appointment Orthopedics Donlad Medley MD [address] [...] failure. Anatomic alignment. Shoulder prosthesis. Sirisha Maher GLOBAL RECRUITER, RIVERBOAT MASTER RAD GD (ABNORMAL) Complete Blood Count-No Diff (02/22/2018 12:36 PM CDT) athologist Signature WBC 10.2 4.0 - 11.0 [facility] RBC 3.36 (L) 4.0 - 5.2 [facility] Hemoglobin 11.1 (L) 12.0 - 16.0 [facility] gdl [facility] HCT 33.2 (L) 36.0 - 46.0 [facility] MCV 98.8 80 - 100 [facility] MCH 33.0 26 - 34 pg [facility] MCHC 33.4 32 - 36 [facility] g/dl [facility] RDW 14.4 11.5 - 14.5 [facility] Platelets 183 150 - 450 [facility] MPV 10.6 9.4 - 12.4 [facility] Specimen Anatomical Collection Method Collection Time Receive d Time (Source) Location / / Volume Laterality 02/22/2018 12:36 02/22/2018 PM CDT 12:37 PM CDT Narrative [facility] - 02/22/2018 12:46 PM C DT Performed at [facility] , [address] [place] [address] Lois Pham PA-C LAB_1 Performing Organization Address City/State/ZIP Code Phon e Number [address] [address], [facility] XR Cervical Spine AP/Lat Upright (02/21/2018 [...] Marky Gonzalez MD LAB_1 Performing Organization Address [facility] Phon e Number [id number] [address], [facility] [phone] (ABNORMAL) Basic Metabolic Panel (02/21/2018 7:12 AM [...] HOSPITAL GFR, Estimated >60 >60 [facility] ml/min/1.7 [facility] 3m2 GFR, Est., If >60 >60 [facility] Black ml/min/1.7 [facility] 3m2 Specimen Anatomical Collection Method Collection Time Receive d Time (Source) Location / / Volume Laterality 02/21/2018 7:12 AM 8 7:13 CDT AM CDT Narrative [facility] - 02/21/2018 7:47 AM CD T Performed at [facility] , [address] [place] [address] Lois Pham PA-C LAB_1 Performing Organization Address [facility] Phon e Number [address] [address], [facility] [phone] (ABNORMAL) Hemogram with Plts (02/21/2018 7:12 AM CDT) athologist Signature WBC 10.0 4.0 - 11.0 [facility] k/ul [facility]OSP[facility] RBC 3.29 (L) 4.0 - 5.2 [facility] M/ul [facility] Hemoglobin 10.7 (L) 12.0 - 16.0 [facility] g/dl [facility] HCT 32.2 (L) 36.0 - 46.0 [facility] % [facility] MCV 97.9 80 - 100 fl [facility] MCH 32.5 26 - 34 pg [facility] MCHC 33.2 32 - 36 [facility] g/dl HOSPITAL RDW 13.9 11.5 - 14.5 [facility]OSPITAL Platelets 186 150 - 450 [facility] k/ul HOSPITAL MPV 10.3 9.4 - 12.4 [facility] Specimen Anatomical Collection Method Collection Time Receive d Time (Source) Location / / Volume Laterality 02/21/2018 7:12 AM 8 7:13 CDT AM CDT Narrative [facility] - 02/21/2018 7:26 AM CD T Performed at [facility] , [address] [place] [address] Lois Pham PA-C LAB_1 Performing Organization Address City/[facility] Phon e Number [address] [address], [facility] Glucose, Whole Blood POC (02/20/2018 11:20 PM CDT) P athologist Signature Glucose, Whole 140 70 - 180 [facility] Blood mg/dl HOSPITAL Comment: Point of Care Testing No Action Required Specimen Anatomical Collection Method Collection Time Receive d Time (Source) Location / / Volume Laterality 02/20/2018 11:20 02/20/2018 PM CDT 11:26 PM CDT Marky Gonzalez MD LAB_1 Performing Organization Address City/[facility]/ZIP Code Phon e Number [address] [address], [place] Glucose, Whole Blood POC (02/20/2018 5:05 [...] Organization Address City/State/ZIP Code Phon e Number [address] [address], [facility] Glucose, Whole Blood POC (02/20/2018 3:45 PM CDT) athologist Signature Glucose, Whole 145 70 - 180 [facility] Blood mg/dl [facility] Comment: Point of Care Testing No Action Required Specimen Anatomical Collection Method Collection Time Receive d Time (Source) Location / / Volume Laterality 02/20/2018 3:45 PM 8 3:52 CDT PM CDT Marky Gonzalez MD LAB_1 Performing Organization Address City/State/ZIP Code Phon e Number [address] [address], [facility] [phone] XR C-Arm 0-30 Minutes (02/20/2018 2:05 PM CDT) Anatomical Region Laterality Modality Other Specimen (Source) Anatomical Location Collection Method / Collectio n Time Received Time / Laterality Volume Narrative 02/20/2018 2:06 PM CDT Fluoroscopy provided by a clinical technologist. Exact fluoroscopy time is documented in end of exam information in [facility] Marky Gonzalez MD RAD GD XR C-Arm 2.5-3 Hours (02/20/2018 12:45 PM CDT) Anatomical Region Laterality Modality Other Specimen (Source) Anatomical Location Collection Method / Collectio n Time Received Time / Laterality Volume Narrative 02/20/2018 12:45 PM CDT Fluoroscopy provided by a clinical technologist. Exact fluoroscopy time is documented in end of exam information in [facility] Marky Gonzalez MD RAD GD XR C-Arm 30-59 Minutes (02/20/2018 12:36 PM CDT) Anatomical Region Laterality Modality Other Specimen (Source) Anatomical Location Collection Method / Collectio n Time Received Time / Laterality Volume Narrative 02/20/2018 12:36 PM CDT Fluoroscopy provided by a clinical technologist. Exact fluoroscopy time is documented in end of exam information in [facility] Marky Gonzalez MD RAD GD Glucose, Whole Blood POC (02/20/2018 9:02 AM CDT) athologist Signature Glucose, Whole 135 70 - 180 [facility] Blood mg/dl [facility] Comment: Point of Care Testing RN Notified Specimen Anatomical Collection Method Collection Time Receive d Time (Source) Location / / Volume Laterality 02/20/2018 9:02 AM 8 9:08 CDT AM CDT Marky Gonzalez MD LAB_1 Performing Organization Address City/[facility]/ZIP Code Phon e Number [address] [address], [facility] Glucose, Whole Blood POC (02/20/2018 6:25 AM CDT) athologist Signature Glucose, Whole 90 70 - 180 [facility] Blood mg/dl HOSPITAL Specimen Anatomical Collection Method Collection Time Receive d Time (Source) Location / / Volume Laterality 02/20/2018 6:25 AM 8 6:34 CDT AM CDT Marky Gonzalez MD LAB_1 Performing Organization Address City/[facility]/ZIP Code Phon e Number [address] [address], [facility] ABO/RH(D) Retype (02/20/2018 6:22 AM CDT) athologist Signature ABO/RH(D) A NEGATIVE [facility] Specimen Anatomical Collection Method Collection Time Receive d Time (Source) Location / / Volume Laterality 02/20/2018 6:22 AM 8 6:25 CDT AM CDT Narrative [facility] - 02/20/2018 7:06 AM CD T Performed at [facility] , [address] [place] [address] Marky Gonzalez MD LAB_1 Performing Organization Address City/[facility]/ZIP [facility] Phon e Number [address] [address] [place] [address], [facility] [phone] INR/Protime (PT/INR) (02/20/2018 6:08 AM CDT) athologist Signature Protime 13.0 12.0 - 14.5 [facility] INR 1.0 0.9 - 1.1 [facility] Specimen Anatomical Collection Method Collection Time Receive d Time (Source) Location / / Volume Laterality 02/20/2018 6:08 AM 8 6:22 CDT AM CDT Narrative [facility] - 02/20/2018 6:40 AM CD T Performed at [facility] , [address] [place] [address] Sirisha Maher APRN, CNP LAB_1 Performing Organization Address [facility] [place] [address] [place] [address], [facility] [phone] Hemogram with Platelets (02/20/2018 6:08 AM CDT) P athologist Signature WBC 6.7 4.0 - 11.0 [facility] RBC 4.13 4.0 - 5.2 [facility] Hemoglobin 13.5 12.0 - 16.0 [facility] g/dl [facility] HCT 39.8 36.0 - 46.0 [facility] MCV 96.4 80 - 100 fl [facility] MCH 32.7 26 - 34 pg [facility] MCHC 33.9 32 - 36 [facility] g/[facility] RDW 13.8 11.5 - 14.5 [facility] Platelets 245 150 - 450 [facility] MPV 10.6 9.4 - 12.4 [facility] Specimen Anatomical Collection Method Collection Time Receive d Time (Source) Location / / Volume Laterality 02/20/2018 6:08 AM 8 6:22 CDT AM CDT Narrative [facility] - 02/20/2018 6:32 AM CD T Performed at [facility] , [address] [place] [address] Sirisha Maher APRN, RIVERBOAT MASTER LAB_1 Performing Organization Address [facility]/ZIP [facility] [place] [address] [place] [address], [facility] (ABNORMAL) Basic Metabolic Panel (02/20/2018 6:08 AM CDT) P athologist Signature Sodium 139 136 - 145 [facility] mmol/L [facility] Potassium 4.4 3.5 - 5.1 [facility] mmol/L HOSPITAL Comment: Specimen Slightly Hemolyzed Hemolysis May Affect Result Chloride 109 98 - 109 mmol/L [facility] HOSPIT AL CO2 18 (L) 20 - 29 mmol/L [facility] HOSPITA L Anion Gap (calc.) 12 7 - 16 mmol/L [facility] HOSPITAL Glucose 96 70 - 180 mg/dl [facility] L Calcium 9.4 8.4 - 10.2 mg/dl [facility] HOSPI EHSAN BUN 14 7 - 26 mg/dl [facility] Creatinine 0.69 0.55 - 1.02 mg/dl [facility] HOS PITAL GFR, Estimated >60 >60 ml/min/1.73m2 [facility] GFR, Est., If Black >60 >60 ml/min/1.73m2 [facility] Specimen Anatomical Collection Method Collection Time Receive d Time (Source) Location / / Volume Laterality 02/20/2018 6:08 AM 8 6:22 CDT AM CDT [facility] - 02/20/2018 6:52 AM CD T Performed at [facility] , [address] [place] [address] Sirisha Maher APRN, CNP LAB_1 Performing Organization Address City/[facility]/ZIP [facility] Phon e Number [address] [address] [place] [address], [facility] aPTT (Activated Partial Thromboplastin Time) (02/20/2018 6:08 AM CDT) P athologist Signature PTT 26.8 24.0 - 37.0 [facility] Specimen Anatomical Collection Method Collection Time Receive d Time (Source) Location / / Volume Laterality 02/20/2018 6:08 AM 8 6:22 CDT AM CDT [facility] - 02/20/2018 6:40 AM CD T Performed at [facility] , [address] [place] [address] Sirisha Maher APRN, CNP LAB_1 Performing Organization Address [facility]/ZIP [facility] Phon e Number [address] [address], [facility] ABO Rh & Antibody Screen (Type & Screen) (02/20/2018 6:07 AM CDT) Patholo gist Method Time Signature Crossmatch 02/23/2018 [facility] Expires HOSPITAL ABO/RH(D) A NEGATIVE [facility] Antibody Screen NEGATIVE [facility] Specimen Anatomical Collection Method Collection Time Receive d Time (Source) Location / / Volume Laterality 02/20/2018 6:07 AM 8 6:22 CDT AM CDT Narrative [facility] - 02/20/2018 7:10 AM CD T Performed at [facility] , [address] [place] [address] Sirisha Maehr APRN, RIVERBOAT MASTER LAB_1 Performing Organization Address City/State/[place] [address] [address], [facility] [phone] EKG IP (02/20/2018 12:00 AM CDT) Specimen (Source) Anatomical Location Collection Method / Collectio n Time Received Time / Laterality Volume 02/20/2018 Narrative This result has an attachment that is no t available. Provider [facility] EKG documented in this encounter Visit [...] Segura RN - 02/23/2018 9:57 AM CDT [facility] Plan of Care Note Assessment: Incisions C/D/I [...] Carbajal RN - 02/23/2018 7:43 AM CDT [facility] Plan of Care Note Assessment: pain Plan: [...] Rico RN - 02/22/2018 10:15 PM CDT [facility] Plan of Care Note Assessment: comfort level [...] Report --- Plan of Care - Shawn iRco RN - 02/22/2018 4:00 PM CDT [facility]. Notified Note Name of MD notified: Ankit Time of MD notification: 1600 hours and 1 minute Reason: Pt.asking for valium now and current order for HS prn. plz review. [id number]. Response: Valium one time dose now and HS prn. Shawn Butcher RN --- End of Report --- Plan of Care - Alec Gifford RN - 02/22/2018 1:57 PM CDT [facility] Plan of Care Note Assessment: pain Plan: [...] Lundberg RN - 02/22/2018 2:32 AM CDT [facility] Plan of Care Note Assessment: Pain Plan: [...] Orellana RN - 02/22/2018 12:33 AM CDT [facility] Plan of Care Note Assessment: Pain Plan: [...] Gifford RN - 02/21/2018 1:41 PM CDT [facility] Plan of Care Note Assessment: pain control [...] Lundberg RN - 02/21/2018 4:56 AM CDT [facility]. MD Notified Note Name of MD notified: Neurosurg Time of MD notification: 0400 hours and 55 minutes Reason: [id number]- Pt reporting oral/IV pain meds ineffective. Pt upset, req further intervention. Please advise. Thanks. Response: Discussed w/ neurosurg. To be addressed in AM and PRNs to continue to be administered as able. Anita Lundberg RN --- End of Report --- Plan of Care - Anita Lundberg RN - 02/21/2018 2:26 AM CDT [facility] Plan of Care Note Assessment: Pain Plan: [...] Control/Comfort Level unable to achieve outcome Comments: [facility] Plan of Care Note Assessment: posterior neck pain worst than anterior Plan: IHR, assessment, pain control Subjective: I thought that I was going to be on a dilaudid drip Objective: Pt angry that she was not on a WATER QUALITY TECHNICIAN pump, Dilaudid PO and IV given [...] PM CDT 50 mcg 25-50 mcg, Intravenous, [id number], Pain, Starting on Tue02/20/18 at 1451, Until [...] (CANCELED) 0056 (Given - Provider: Anita K Tooñ, RN)1034 (Given - Provider: Alec Gifford, RN) [...] HS
documented in this encounter Care Teams Copy Machine Operator Relationship Specialty Start Date End Date Jose Holden MD PCP - General Otolaryngology 12/14/[address] [place], [place] [address] [address] documented as of this encounter
--- OUTSIDE RECORDS SUMMARY | 2022-11-08 13:55 | XMS_ITS | Encounter Summary ---
:1965 Author Organization [facility] Address [address] [address] Care Team Providers Name Role Phone Jose Holden MD Primary Care Provider [phone] Encounter Details Date Type Department Care Team Description 02/07/2018 Telephone [facility] Neuroscience Chava Simon RN [place] [facility]ine [address] [place] [phone] Social History Tobacco Use Types Packs/Day Years [...] her pre-op is scheduled for 02/13/18 at [facility]. Clinic fax # was given. Patient will have clearance note faxed to clinic. Will post pone message to after the to check and see if pre-op has been received yet. Michael Cruz - 02/08/2018 1:37 PM CDT [facility] Michael Cruz 02/08/2018, 1:37 PM Michael Cruz - 02/07/2018 11:27 AM CDT [facility] Michael Cruz 02/07/2018, 11:27 AM Chava [...] Medley MD [address] [facility] [address] [place], [place] [phone] (Wo rk) 12/31/2022 Appointment OrthopedicDonald Thomas MD 1601 [facility] 200 [place], [place] [phone] (Wo rk) documented as of this encounter Visit Diagnoses Not on filedocumented in this encounter Care Teams Candy Spreader Relationship Specialty Start Date End Date Jose Holden MD PCP - General Otolaryngology 12/14/17 [facility] [place] [address] documented as of this encounter
--- OUTSIDE RECORDS SUMMARY | 2022-11-08 13:56 | XMS_ITS | Encounter Summary ---
:1965 Author Organization [facility] Address [address] [place] [address] Care Team Providers Name Role Phone Jose Holden MD Primary Care Provider [phone] Encounter Details Date Type Department Care Team Description 12/02/2017 Orders Only External to Pete Gonzalez MD [address] [place] [address] (Wo rk) Social History Tobacco [...] Appointment Orthopedics Donald Medley MD 1601 [facility] [address] [place] [address] [phone] (Wo rk) 12/31/2022 Appointment Orthopedics Donald Medley MD 1601 [facility] 200 [place], [place] [phone] (Wo rk) documented as of this encounter Procedures Procedure Name Priority Date/Time Associated Diagnosis Comme nts MRI SPINE--SCAN 12/02/2017 12:00 AM Resul ts for this SOCIAL SERVICE WORKER procedure are i n the results section. documented in this encounter Results MRI SPINE--SCAN (12/02/2017 12:00 AM SOCIAL SERVICE WORKER) Anatomical Region Laterality Modality Other Specimen (Source) Anatomical Location Collection Method / Collectio n Time Received Time / Laterality Volume 12/02/2017 Narrative This result has an attachment that is no t available. Pete Gonzalez MD DUMMY/OTHER/AR documented in this encounter Visit Diagnoses Not on filedocumented in this encounter Care Teams Contestant Coordinator Relationship Specialty Start Date End Date Jose Holden MD PCP - General Otolaryngology 12/14/[address] [facility] [place] [address] documented as of this encounter
--- OUTSIDE RECORDS SUMMARY | 2022-11-08 13:56 | XMS_ITS | Encounter Summary ---
:1965 Author Organization [facility] Address [address] [place] [address] Care Team Providers Name Role Phone Elsewhere, Pcp Primary Care Provider Unavailable Encounter Details Date Type Department Care Team Description 09/06/2022 Clinical Communication Department of [facility] Orthopedic Surgery in [place] Sou[place], [place] 200 [facility] [address] [place] [address] [phone] Social History Tobacco Use Types Packs/Day Years [...] you attend [employer] or Patient refused 2021 pentecostalism services? Do [...] as of this encounter Care Teams Director Transportation Relationship Specialty Start Date End Date Elsewhere, Pcp PCP - General Family Medicine 12/25/21 documented as of this encounter
--- OUTSIDE RECORDS SUMMARY | 2022-11-08 13:56 | XMS_ITS | Encounter Summary ---
:1965 Author Organization [facility] Address [address] [place] [address] Care Team Providers Name Role Phone Unassigned, Provider Primary Care Provider Unavailable Encounter Details Date Type Department Care Team Description 01/17/2006 [facility] Curtis Antoine Op Report-Archive [facility] [place] [address] [address] [phone] [place], [place] [id number] Social History Tobacco Use Types Packs/Day Years Used Date Smoking Tobacco: Never Assessed Sex Assigned at Date Recorded Not on file documented as of this encounter Plan of Treatment Upcoming Encounters Date Type Specialty Care Team Description 12/02/2022 Appointment Orthopedics Donald Medley MD [address] [phone] (Wo rk) 12/31/2022 Appointment Orthopedics Donald Medley MD [address] [phone] (Wo rk) documented as of this encounter Visit Diagnoses Not on filedocumented in this encounter Care Teams Electronic Warfare Specialist Relationship Specialty Start Date End Date Unassigned, Provider PCP - General 08/05/03 12/13/[address] [place] [address] documented as of this encounter
--- OUTSIDE RECORDS SUMMARY | 2022-11-08 13:56 | XMS_ITS | Encounter Summary ---
:1965 Author Organization [facility] Address [address] [place] [address] Care Team Providers Name Role Phone Jose Holden MD Primary Care Provider [phone] Reason for Visit Therapies (Routine) - Closed Specialty Diagnoses / Procedures Referred By Contact Refer red To Contact Diagnoses Pseudarthrosis after fusion or arthrodesis Screening procedure Pete Gonzalez MD [address] [place] [address] Referral ID Status Reason Start Date Expiration Date Visits Requ ested Visits Authorized [id number] Closed 11/29/2017 01/28/2018 1 1 Encounter Details Date Type Department Care Team Description 12/26/2017 Office Visit Pete Orona MD [address] [place], [place] [address] Pharyngeal dysphagia [facility] Kaykay Wyman VARITYPIST [address] [place], [place] [phone] (Primary Dx) Speech Therapy [address] [place] [address]. [id number] [id number] Social History Tobacco Use Types Packs/Day Years Used Date Smoking Tobacco: Every Day Cigarettes 0.5 Smokeless Tobacco: Never Alcohol Use Standard Drinks/Week Comments No 0 (1 standard drink = 0.6 oz pure alcoho l) Sex Assigned at Date Recorded Not on file documented as of this encounter Patient Instructions Patient InstructionsKaykay Wyman SLP - 12/26/2017 12:30 PM INFRASTRUCTURE ENGINEER You had a swallow test today. I [...] sensation of food catching. Kaykay Monroy MA CCC/VARITYPIST Speech-Language Pathologist M-F Office: [phone] ASTRUCTURE ENGINEER documented in this encounter Progress Notes Kaykay Wyman, VARITYPIST - 12/26/2017 12:30 PM CST SPEECH LANGUAGE PATHOLOGY MODIFIED BARIUM SWALLOW INITIAL EVALUATION ASSESSMENT Patient is referred for dysphagia evaluation as part of surgical consultation related to past ACDF 1[place] ago in [place] with consideration of revision ACDF surgery in [...] food sticking, especially on textures that are platen drier operator (meats, breads, etc). I would [...] goals established as no further intervention from VARITYPIST service is warranted at this time. VISIT [...] Total Treatment Time: 45 minutes Kaykay Monroy CCC-VARITYPIST 12/26/2017 documented in this encounter Plan of Treatment Upcoming Encounters Date Type Specialty Care Team Description 12/02/2022 Appointment Orthopedics Donald Medley MD [address] [place], [place] [phone] (Wo manuelito) 12/31/2022 Appointment Orthopedics Donald Medley MD [address] [place] [phone] (Babatunde billings) Scheduled Referrals Name Type Priority Associated Diagnoses Order S chedule Speech Therapy Referral Routine Pseudarthrosis after fusio n or Ordered: 11/29/2017 arthrodesis Screening procedure documented as of this encounter Visit Diagnoses Diagnosis Pharyngeal dysphagia - Primary Dysphagia, pharyngeal phase documented in this encounter Care Teams Manager Multicultural Relationship Specialty Start Date End Date Jose Holden MD PCP - General Otolaryngology 12/14/17 [facility] [place] [address] documented as of this encounter
--- OUTSIDE RECORDS SUMMARY | 2022-11-08 13:56 | XMS_ITS | Encounter Summary ---
:1965 Author Organization [facility] Address [address], [place] [address] Care Team Providers Name Role Phone Jose Holden MD Primary Care Provider [phone] Reason for Visit Reason Comments Other Encounter Details Date Type Department Care Team Description 01/17/2018 [facility] Chava Simon RN Other Center Neurosurgery/ Ortho Spine [address] [place] [address]. 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 Chava [...] Please advise Michael Cruz 01/17/2018, 3:47 PM H BRUSHER documented in this encounter Plan of Treatment Upcoming Encounters Date Type Specialty Care Team Description 12/02/2022 Appointment Orthopedics Donald Medley MD [address] [facility] [address] [place] [phone] (Wo rk) 12/31/2022 Appointment Orthopedics Donald Medley MD [address] [facility] [address] [place] [phone] (Wo rk) documented as of this encounter Visit Diagnoses Not on filedocumented in this encounter Care Teams Concrete Bucket Unloader Relationship Specialty Start Date End Date Jose Holden MD PCP - General Otolaryngology 12/14/17 [address] [place], [place] [phone] documented as of this encounter
--- OUTSIDE RECORDS SUMMARY | 2022-11-08 13:56 | XMS_ITS | Encounter Summary ---
:1965 Author Organization [facility] Address [address] [place] [address] Care Team Providers Name Role Phone Unassigned, Provider Primary Care Provider Unavailable Encounter Details Date Type Department Care Team Description 10/28/2005 [facility] Curtis Antoine Op Report-Archive [facility] [place] [address] [address] [phone] [place], [place] [id number] Social History Tobacco Use Types Packs/Day Years Used Date Smoking Tobacco: Never Assessed Sex Assigned at Date Recorded Not on file documented as of this encounter Plan of Treatment Upcoming Encounters Date Type Specialty Care Team Description 12/02/2022 Appointment Orthopedics Donald Medley MD [address] [phone] (Wo rk) 12/31/2022 Appointment Orthopedics Donald Medley MD [address] [phone] (Wo rk) documented as of this encounter Visit Diagnoses Not on filedocumented in this encounter Care Teams Medical Insurance Biller Relationship Specialty Start Date End Date Unassigned, Provider PCP - General 08/05/03 12/13/[address] [place] [address] documented as of this encounter
--- OUTSIDE RECORDS SUMMARY | 2022-11-08 13:56 | XMS_ITS | Encounter Summary ---
:1965 Author Organization [facility] Address [address] [place] [address] Care Team Providers Name Role Phone Jose Holden MD Primary Care Provider [phone] Reason for Referral Consult/Transfer Care (Routine) - Closed Specialty Diagnoses / Procedures Referred By Contact Refer red To Contact Neurosurgery Diagnoses Pseudarthrosis after fusion or arthrodesis Pete Gonzalez MD [facility] Neurosurgery/Ortho [address] [place] [address] [place] [address] Phone: Fax: Referral ID Status Reason Start Date Expiration Date Visits Requ ested Visits Authorized [id number] Closed 01/17/2018 04/18/2019 1 1 Scheduling Instructions Your provider has recommended an appoint ment for a pre-operative pain consult with [facility]?? You may call [phone] to schedule your appointment.?? If you prefer, a mirela billy will contact you within the next 3 business days to assist you in setting u p this appointment. COUNSELOR Reason for Visit Reason Comments Revisit Encounter Details Date Type Department Care Team Description 01/17/2018 Office Visit Pete Watson, Pseudarthr osis after Neuroscience Center MD fusion or arthrodesis Neurosurgery/Ortho [address] [place] (Primar y Dx) [facility] [address] [place] [address] [place] [address] [phone] Social History Tobacco Use Types Packs/Day Years [...] Comments Blood Pressure 137/83 01/17/2018 11:51 AM HIV COUNSELOR Pulse 83 01/17/2018 11:51 AM HIV COUNSELOR Temperature 36.5 ??C (97.7 ??F) 01/17/2018 11:51 AM HIV COUNSELOR Respiratory Rate 16 01/17/2018 11:51 AM HIV COUNSELOR Oxygen Saturation - - Inhaled Oxygen Concentration [...] business days) Please call Ana Rosa at [phone] if you have not heard from her. [...] prior to surgery. Please fax preops to [phone] Nothing to eat or drink from midnight [...] and Apply plenty of Hibiclens*, a special film cleaner, to a clean, wet washcloth. Wash [...] 8am-5pm, please call the Neurosurgery Clinic at [phone] if youhave any concerns related to your surgery before going to the Emergency Room, your family physician,or an Urgent Care. After hours call the [facility] at [phone]. PAIN MEDICATION POLICY The Department of Neurosurgery [...] duringweekend hours. Day of surgery, arrive at [facility] [place] on 3rd floor 2 hours prior to surgery. The Same Day Surgery Nurses will call you 1-3 days prior to surgery to inform you what time you should arrive for your surgery. If they do not reach you, please call if your surgery is at [facility]. Review your surgery packet. Contact the Neurosurgery Center [phone] if you have any questions or concerns COUNSELOR documented in this encounter Progress Notes Pete [...] is prone to typos and grammatical errors. COUNSELOR documented in this encounter Plan of Treatment Upcoming Encounters Date Type Specialty Care Team Description 12/02/2022 Appointment Orthopedics Donald Medley MD 1601 [facility] [address] [place], [place] [phone] (Wo rk) 12/31/2022 Appointment Orthopedics Donald Medley MD [address] [facility] [address] [place], [place] [phone] (Wo rk) Scheduled Referrals Name Type Priority Associated Diagnoses Order S chedule PRE-OP PAIN CONSULT Referral Routine Pseudarthrosis after fusion Ordered: 01/17/2018 - ADULT or arthrodesis documented as of this encounter Procedures Procedure Name Priority Date/Time Associated Diagnosis Comme nts MRSA/MSSA PRE-OP Routine 01/17/2018 1:48 PM Pseudarthrosis aft er Results for this CULTURE HIV COUNSELOR fusion or arthrodesis proced ure are in the results section. documented in this encounter Results MRSA/MSSA Pre-Op Culture (01/17/2018 1:48 PM HIV COUNSELOR) Component Value Ref Test Analysis Performed At [place] [facility] Range Method Time Signature Specimen Nose Swab [facility] Description LABORATORIES Special Unspecified [facility] Requests LABORATORIES Culture No Staphylococcus [facility] aureus Isolated LABORATORIES Report Status 01/18/2018 [facility] Final LABORATORIES Specimen Anatomical Collection Method Collection Time Receive d Time (Source) Location / / Volume Laterality Nasal swab taken NASAL STRUCTURE / 01/17/2018 1:48 PM 01/17/2018 1:49 (situation) Unknown HIV COUNSELOR PM HIV COUNSELOR Pete Gonzalez MD LAB_1 Performing Organization Address City/State/ZIP Code Phon e Number [facility] [phone] documented in this encounter Visit Diagnoses Diagnosis Pseudarthrosis after fusion or arthrodes is - Primary Arthrodesis status documented in this encounter Care Teams Market Research Lead Relationship Specialty Start Date End Date Jose Holden MD PCP - General Otolaryngology 12/14/[address] [place], [place] [address] [address] documented as of this encounter
--- OUTSIDE RECORDS SUMMARY | 2022-11-08 13:56 | XMS_ITS | Encounter Summary ---
:1965 Author Organization [facility] Address [address] [place] [address] Care Team Providers Name Role Phone Jose Holden MD Primary Care Provider [phone] Reason for Visit Reason Comments Consult, New Patient vocal cord analysis Consult/Transfer Care (Routine) - Closed Specialty Diagnoses / Procedures Referred By Contact Refer red To Contact Diagnoses Pseudarthrosis after fusion or arthrodesis Screening procedure Pete Gonzalez MD [address] [place] [address] Referral ID Status Reason Start Date Expiration Date Visits Requ ested Visits Authorized [id number] Closed 11/29/2017 02/28/2019 1 1 Encounter Details Date Type Department Care Team Description 12/26/2017 Office Visit Specialty Center Jose Holden Cer vical vertebral 401 Otolaryngology MD Deyvi fusion (Primary Dx) [address] [place] [address] [place], [place] [phone] [facility] Social History Tobacco Use Types Packs/Day [...] (166 lb 12.8 oz) 12/26/2017 2:06 PM TELEPHONE SUPERVISOR Height - - Body Mass Index 32.58 11/29/2017 10:21 AM TELEPHONE SUPERVISOR documented in this encounter Progress Notes Jose Holden MD - 12/26/2017 3:00 PM CST HPI: Angie Mosquera is a 52 y.o. old female who presents for vocal cord evaluation prior to cervical spine surgery. Patient has significant history of cervical spine surgery having approximate four procedures, three in [place] one here in the [place] area last year. After her last surgery, developed significant hoarseness, loss of voice for approximately three months. Cervical approach with her last surgery was left-hand side. States that she was evaluated by a gem expert and there were plans for a procedure [...] times per day. 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 Not currently working. [...] software and may contain unintended word substitutions. 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
--- OUTSIDE RECORDS SUMMARY | 2022-11-08 13:56 | XMS_ITS | Encounter Summary ---
:1965 Author Organization [facility] Address [address] [place] [address] Care Team Providers Name Role Phone Jose Holden MD Primary Care Provider [phone] Encounter Details Date Type Department Care Team Description 12/02/2017 Orders Only External to Pete Gonzalez MD [address] [place] [address] (Wo rk) Social History Tobacco [...] 12/02/2022 Appointment Orthopedics Donald Medley MD 1601 [facility] 200 [place] [phone] (Wo rk) 12/31/2022 Appointment Orthopedics Donald Medley MD [address] [facility] 200 [place], [place] [phone] (Wo rk) documented as of this encounter Procedures Procedure Name Priority Date/Time Associated Diagnosis Comme nts MRI SPINE--SCAN 12/02/2017 12:00 AM Resul ts for this TUBE BACKER procedure are i n the results section. documented in this encounter Results MRI SPINE--SCAN (12/02/2017 12:00 AM TUBE BACKER) Anatomical Region Laterality Modality Other Specimen (Source) Anatomical Location Collection Method / Collectio n Time Received Time / Laterality Volume 12/02/2017 Narrative This result has an attachment that is no t available. Pete Gonzalez MD DUMMY/OTHER/AR documented in this encounter Visit Diagnoses Not on filedocumented in this encounter Care Teams Box Gluer Relationship Specialty Start Date End Date Jose Holden MD PCP - General Otolaryngology 12/14/17 [facility] [place] [address] documented as of this encounter
--- OUTSIDE RECORDS SUMMARY | 2022-11-08 13:56 | XMS_ITS | Encounter Summary ---
:1965 Author Organization [facility] Address [address] [place] [address] Care Team Providers Name Role Phone Jose Holden MD Primary Care Provider [phone] Reason for Referral (Routine) - Incomplete Specialty [...] (*), IMAGE GUIDANCE ADD ON SPINE (*) [place] [address] Referral ID Status Reason Start Date Expiration Date Visits V isits Requested Authorized [id number] Incomplete 01/25/2018 04/26/2019 1 1 SEPARATOR Encounter Details Date Type Department Care Team Description 01/25/2018 [facility] Cervical s pondylosis with radiculopathy (Primary Dx); Surgery [facility] 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
--- OUTSIDE RECORDS SUMMARY | 2022-11-08 13:56 | XMS_ITS | Encounter Summary ---
:1965 Author Organization [facility] Address [address], [place] [address] Care Team Providers Name Role Phone Jose Holden MD Primary Care Provider [phone] Reason for Visit Reason Comments QUESTIONS, GENERAL Encounter Details Date Type Department Care Team Description 01/25/2018 Telephone [facility] Pete Gonzalez MD QUESTIONS, GENERAL [facility] [address] [facility] [facility] Neuro[facility]Ortho [place], [place] [address] [address] [place] [address] [phone] Social History Tobacco Use Types Packs/Day Years [...] should receive a call from the neurosurgery research director in the next 1-3 weeks to discuss her surgery/date. Patient stated understanding and will call with any updates or changes. Chava Simon RN 01/25/2018, 11:04 AM [employer] [facility] [place] - 01/25/2018 10:56 AM CST Patient calling to speak to RN. Regarding her MRI scan. [employer] documented in this encounter Plan of Treatment Upcoming Encounters Date Type Specialty Care Team Description 12/02/2022 Appointment Orthopedics Donald Medley MD 16[address] [facility] [address] [place] [phone] (Wo rk) 12/31/2022 Appointment Orthopedics Donald Medley MD [address] [facility] [address] [place] [phone] (Wo rk) documented as of this encounter Visit Diagnoses Not on filedocumented in this encounter Care Teams Road Worker Relationship Specialty Start Date End Date Jose Holden MD PCP - General Otolaryngology 12/14/17 [place] [address] documented as of this encounter
--- OUTSIDE RECORDS SUMMARY | 2022-11-08 13:56 | XMS_ITS | Encounter Summary ---
:1965 Author Organization [facility] Address [address], [place] [address] Care Team Providers Name Role Phone Jose Holden MD Primary Care Provider [phone] Encounter Details Date Type Department Care Team Description 01/20/2018 [facility]phone [facility] Neuro[facility] Chava Simon RN [place] [facility] Spine [address] [place] [address] [phone] Social History Tobacco Use Types Packs/Day Years [...] placed. Chava Simon RN 01/25/2018, 8:24 AM DRIVER Chava Simon RN - 01/24/2018 12:[address] Gonzalez reviewed imaging and is waiting until appropriate time to place case request. Chava Simon RN 01/24/2018, 12:45 PM DRIVER Gi De La Vega - 01/20/2018 11:21 AM CST Patient called to speak to RN. She has a new phone number. Please call her at [phone]. thanks DRIVER Chava Simon RN - 01/20/2018 11:15 AM CST Images from the original note were not included. Team please have Dr. Gonzalez review imaging which is now on PACs and place case request. Chava Simon RN 01/20/2018, 11:18 AM DRIVER documented in this encounter Plan of Treatment Upcoming Encounters Date Type Specialty Care Team Description 12/02/2022 Appointment Orthopedics Donald Medley MD [address] [facility] [address] [place] [phone] (Wo rk) 12/31/2022 Appointment Orthopedics Donald Medley MD [facility] [address] [place] [phone] (Wo rk) documented as of this encounter Visit Diagnoses Not on filedocumented in this encounter Care Teams Mat Making Machine Tender Relationship Specialty Start Date End Date Jose Hold[place] MD PCP - General Otolaryngology 12/14/17 [facility] [place] [address] documented as of this encounter
--- OUTSIDE RECORDS SUMMARY | 2022-11-08 13:56 | XMS_ITS | Encounter Summary ---
:1965 Author Organization [facility] Address [address] [place] [address] Care Team Providers Name Role Phone Elsewhere, Pcp Primary Care Provider Unavailable Encounter Details Date Type Department Care Team Description 09/28/2022 Clinical Communication Department of Prescheduling, Orthopedic Surgery in [place], [place] [address] [place] [address] Social History Tobacco Use Types Packs/Day Years [...] you attend sikh or Patient refused 2021 christian services? Do [...] documented as of this encounter Care Teams Anatomy Professor Relationship Specialty Start Date End Date Elsewhere, Pcp PCP - General Family Medicine 12/25/21 documented as of this encounter
--- OUTSIDE RECORDS SUMMARY | 2022-11-08 13:56 | XMS_ITS | Encounter Summary ---
:1965 Author Organization [facility] Address [address] [place] [address] Care Team Providers Name Role Phone Elsewhere, Pcp Primary Care Provider Unavailable Reason for Visit Reason Comments Pre-visit Intake Encounter Details Date Type Department Care Team Description 09/01/2022 Clinical Communication Visit Review in Pr e-visit Intake [place], [place] [address] [place] [address] Social History Tobacco Use Types [...] you attend adventism or Patient refused 2021 pentecostal services? Do [...] as of this encounter Care Teams Ball Fringe Machine Operator Relationship Specialty Start Date End Date Elsewhere, Pcp PCP - General Family Medicine 12/25/21 documented as of this encounter
--- OUTSIDE RECORDS SUMMARY | 2022-11-08 13:56 | XMS_ITS | Encounter Summary ---
:1965 Author Organization [facility] Address [address] [place] [address] Care Team Providers Name Role Phone Jose Holden MD Primary Care Provider [phone] Reason for Visit Procedure/Equipment (Routine) - Incomplete Specialty Diagnoses / Procedures Referred By Contact Refer red To Contact Diagnoses Screening procedure Pseudarthrosis after fusion or arthrodesis Pete Gonzalez MD Procedures FL Video Swallow Study [address] [place] [address] Referral ID Status Reason Start Date Expiration Date Visits V isits Requested Authorized [id number] Incomplete 11/29/2017 02/28/2019 1 1 Encounter Details Date Type Department Care Team Description 12/26/2017 Imaging Pete Orona MD Screening procedure; Neuroscience Center 3931 [facility] Ps eudarthrosis after fusion or arthrodesis Radiology Fluoro S [address] [place] [address] [place] 500196 (Wo rk) Social History Tobacco Use Types [...] 12/02/2022 Appointment Orthopedics Donald Medley MD [address] [facility] [address] [place] [phone] (Wo rk) 12/31/2022 Appointment Orthopedics Donald Medley MD [address] [facility] [address] [place] [phone] (Wo rk) documented as of this encounter Procedures Procedure Name Priority Date/Time Associated Diagnosis Comme nts FL VIDEO SWALLOW Routine 12/26/2017 1:03 PM Screening pr ocedure Results for this STUDY BUSINESS APPLICATIONS MANAGER Pseudarthrosis after procedu re are in fusion or the results arthrodesis section. documented in this encounter Results FL Video Swallow Study (12/26/2017 1:03 PM BUSINESS APPLICATIONS MANAGER) Anatomical Region Laterality Modality Neck, Chest Radio Fluoroscopy Specimen (Source) Anatomical Collection Method Collection Time Re ceived Time Location / / Volume Laterality 12/26/2017 1:03 PM BUSINESS APPLICATIONS MANAGER Narrative 12/26/2017 6:00 PM BUSINESS APPLICATIONS MANAGER FL VIDEO SWALLOW STUDY 12/26/2017 1:03 [...] sulfate (EZ PAQUE) Given 12/26/2017 1:06 PM BUSINESS APPLICATIONS MANAGER 200 mL suspension 200 mL 200 mL, Oral, ONCE (NON-SCHEDULED), Starting on Tue12/26/17 at 1305, For 1 dose barium sulfate (EZ-DISK) tablet 700 mg Given 12/26/2017 1:06 PM BUSINESS APPLICATIONS MANAGER 700 mg 700 mg, Oral, ONCE (NON-SCHEDULED), Starting on Tue12/26/17 at 1305, Until Tue12/26/17 at 1306, For 1 dose barium sulfate (EZ-PASTE) oral cream 9 g Given 12/26/2017 1:06 PM BUSINESS APPLICATIONS MANAGER 9 g 9 g (15 mL), Oral, ONCE (NON-SCHEDULED), Starting on Tue12/26/17 at 1305, For 1 dose barium sulfate (VARIBAR, TAGITOL V) 40 % Given 12/26/2017 1:06 P M BUSINESS APPLICATIONS MANAGER 240 mL suspension 240 mL 240 mL, Oral, ONCE (NON-SCHEDULED), Starting on Tue12/26/17 at 1305, Until Tue02/20/18 at 1710, For 3 doses documented in this encounter Care Teams Glass Driller Relationship Specialty Start Date End Date Jose Holden MD PCP - General Otolaryngology 12/14/17 [place] [address] documented as of this encounter
--- OUTSIDE RECORDS SUMMARY | 2022-11-08 13:56 | XMS_ITS | Encounter Summary ---
:1965 Author Organization [facility] Address [address] [place] [address] Care Team Providers Name Role Phone Unassigned, Provider Primary Care Provider Unavailable Encounter Details Date Type Department Care Team Description 12/13/2006 [facility] Curtis Antoine Op Report-Archive [facility] [place] [address] [address] [phone] [place], [place] [id number] Social History Tobacco Use Types Packs/Day Years Used Date Smoking Tobacco: Never Assessed Sex Assigned at Date Recorded Not on file documented as of this encounter Plan of Treatment Upcoming Encounters Date Type Specialty Care Team Description 12/02/2022 Appointment Orthopedics Donald Medley MD [address] [phone] (Wo rk) 12/31/2022 Appointment Orthopedics Donald Medley MD [address] [phone] (Wo rk) documented as of this encounter Visit Diagnoses Not on filedocumented in this encounter Care Teams Solar Installation Technician Relationship Specialty Start Date End Date Unassigned, Provider PCP - General 08/05/03 12/13/17 [address] [place] [address] documented as of this encounter
--- OUTSIDE RECORDS SUMMARY | 2022-11-08 13:56 | XMS_ITS | Encounter Summary ---
:1965 Author Organization [facility] Address [address], [place] [address] Care Team Providers Name Role Phone Jose Holden MD Primary Care Provider [phone] Encounter Details Date Type Department Care Team Description 01/17/2018 [facility]phone [facility] Chava Simon RN [place] Neuro[facility]/ Ortho Spine [address] [place] [address] Social History Tobacco Use Types Packs/Day [...] in. Chava Simon RN 01/17/2018, 1:26 PM OL LEADER documented in this encounter Plan of Treatment Upcoming Encounters Date Type Specialty Care Team Description 12/02/2022 [place] [address] [place] [address] [address] [place] [phone] (Wo rk) 12/31/2022 Appointment Orthopedics Donald Medley MD 1601 [facility] [address] [place] [phone] (Wo rk) documented as of this encounter Visit Diagnoses Not on filedocumented in this encounter Care Teams Serology Technician Relationship Specialty Start Date End Date Jose Holden MD PCP - General Otolaryngology 12/14/17 [address] [place] [phone] documented as of this encounter
--- OUTSIDE RECORDS SUMMARY | 2022-11-08 13:56 | XMS_ITS | Encounter Summary ---
:1965 Author Organization [facility] Address [address], [place] [address] Care Team Providers Name Role Phone Unassigned, Provider Primary Care Provider Unavailable Reason for Visit Procedure/Equipment (Routine) - Incomplete Specialty Diagnoses / Procedures Referred By Contact Refer red To Contact Diagnoses Screening procedure Pseudarthrosis after fusion or arthrodesis Pete Gonzalez MD Procedures XR Cervical Spine W Flex And Ext [address] [place] [address] Referral ID Status Reason Start Date Expiration Date Visits V isits Requested Authorized [id number] Incomplete 10/31/2017 01/30/2019 1 1 Encounter Details Date Type Department Care Team Description 11/29/2017 [facility] Screening procedure Neuroscience Center 3931 [facility] Radiology [place], [place] [address] [address] [place] [address] [phone] Social History Tobacco Use Types Packs/Day Years [...] Medley MD 1601 [facility] [address] [place], [place] [phone] (Wo rk) 12/31/2022 Appointment Orthopedics Donald Medley MD [address] [facility] [address] [phone] (Wo rk) documented as of this encounter Procedures Procedure Name Priority Date/Time Associated Diagnosis Comme nts XR CERVICAL SPINE W Routine 11/29/2017 9:54 AM Screening proce dure Results for this FLEX AND EXT REGISTERED APPRAISER procedure are i n the results section. documented in this encounter Results XR Cervical Spine W Flex And Ext (11/29/2017 9:54 AM REGISTERED APPRAISER) Anatomical Region Laterality Modality Spine, C-Spine, Neck Computed Radiograph y Specimen (Source) Anatomical Collection Method Collection Time Re ceived Time Location / / Volume Laterality 11/29/2017 9:54 AM REGISTERED APPRAISER Narrative 11/29/2017 10:59 AM REGISTERED APPRAISER XR CERVICAL SPINE W FLEX AND EXT [...] condition documented in this encounter Care Teams Bobbin Doffer Relationship Specialty Start Date End Date Unassigned, Provider PCP - General 08/05/03 12/13/[address] [place] [address], [place] [address] documented as of this encounter
--- OUTSIDE RECORDS SUMMARY | 2022-11-08 13:56 | XMS_ITS | Clinical Summary ---
:1965 Author Organization [facility] Address [address] [place] [address] Care Team Providers Name Role Phone Elsewhere, Pcp Primary Care Provider Unavailable Source Comments Patient records contain information from all sites at [facility]. For routine questions regarding patient records, call [phone] during business hours, M-F 8:00 AM - 5:00 PM Central Time. Record requests for emergency care only can be directed to [phone] at any time.[facility] Allergies Active Allergy Reactions Severity [...] 10/13/2017 Other lashaun ction(s): (see comments) Contact Wanblee titis Gabapentin Other (see comments) Low 05/12/2017 [...] 80 mg oral Daily, Reported on 06/21/2022 pflszxybns-eovxsqvawpzad-cmpx Take 1 tablet by 0 12/2020 Active [...] by 0 01/28 Active mouth at bedtime. multivit-min/iron/folic/bws475 Take 1 tablet by 0 Active (HAIR, [...] Added automatically from request for lonnie li [id number] Nicotine Dependence Unspecified 11/29/2017 Other Terrazzo Tile Maker Current Drug Therapy 12/30/2016 Opioid Moderate Or [...] you attend quaker or Patient refused 2021 religion services? Do [...] history exists Medical Devices Implanted Type Area Retort Engineer Device Shelf Model / Identifier Expiration Serial / Date Lot Cmnt Bn Sm 20gm - [id number] Bone Cement Left: Nato [id number] / Implanted: Qty: 1 on 12/30/2021 by Cyrus Panchal M.D. at [facility] Shoulder / Grft Dbm Grf Obl Ld 15 - [id number] - [id number] Bone or Tis lebron Left: Medtronic 10/14/2023 [id number] / Implanted: Qty: 1 on 02/26/2022 at [facility] Shoulder [id number] / 4mm Amplatz Micro Plug Embolization Brain Amplatzer [id number] / Implanted: Qty: 1 on 02/16/2021 by Mustapha Posey M.D. at [facility] Coil Date Night Sitter / Dayo [id number] Description: MRI Conditional at 1.5T or 3T Max Whole Body YUSEF of 4 W/kg. AAC 2020 [email or web address] Hardware E.G. Hardware e.g. Neck Pins/Screws/Rods pins/screws/rods Scrw Cmp Pthrd 6.5x25 - [id number] Hardware e.g. Left: Trevor B iomet 12/29 [id number] / Implanted: Qty: 1 on 02/26/2022 at [facility] pins/screws/rods Shoulder 05/17 [id number] Knee Implant Knee Implant Bilateral: Knee Plg Ocl Amp Avpii 6 - [id number] Mesh or Patch Pedersen 07/31 [id number] / Implanted: Qty: 1 on 02/16/2021 by Mustapha Posey M.D. at [facility] [id number] Shoulder Implant Shoulder Implant Left: Shoulder Bsplt Glnd Cmp Rv Aug Sm - [id number] Shoulder Implant Left: Trevor Biomet 01/26 [id number] / Implanted: Qty: 1 on 02/26/2022 at [facility] Shoulder [id number] [facility] Cmp Rvrs Prim Mini 9 - [id number] Shoulder Implant Le ft: Trevor Biomet 08/28 [id number] / Implanted: Qty: 1 on 05/18/2022 by Cyrus Panchal M.D. at [facility] Shoulder 02/14 [id number] Medtronic Spinal Cord Stimulator Spinal Cord Back Medtronic [id number] / Implanted: 06/30/2020 (Quantity not on file) Stimulator [id number] / [id number] Description: Medtronic WeShowlis Spinal Cord Stimulator model #60931. As of 06/17/22, the stimulator IPG is [...] as of 03-19-21 SDN Explanted Type Area Retort Engineer Device Shelf Model / Identifier Expiration Serial / Date Lot [facility] Hd Vrs Dl [id number] - [id number] Shoulder Left: Trevor Biom et 05/29/2031 [id number] / Implanted: Qty: 1 on 12/30/2021 by Cyrus Panchal M.D. at [facility] Implant Shoulder / Explanted: Qty: 1 on 02/26/2022 at [facility] [id number] [facility] Cmp Rvrs Prim Std 10 - [id number] Shoulder Left: Zi mmer Biomet 12/16/2029 [id number] / Implanted: Qty: 1 on 02/26/2022 at [facility] Implant Shoulder / Explanted: Qty: 1 on 05/18/2022 at [facility] [id number] Spinal Cord Stimulator Spinal Cord Pelvis Nevro Explanted: 03/10/2020 (Quantity not on file) Stimulator Description: Device was explanted on 02-26 per Nev[employer] Support. HEMALATHA 03-19-21 Insurance Payer Benefit Plan / Subscriber ID Effective Phone Address T ype Group Dates MEDICARE MEDICARE A AND B [id number] 2012-Pre [address] Medicare [facility] [address] MEDICA MEDICA [id number] 2018-Pres [phone] Medica id HMO ACCESSABILITY ent [phone] [place] [address] Advance Directives For more information, please contact: [phone] Latest Code Status on File Code Status [...] Answer Comments Full Code: Discussed Care Teams Power Project Manager Relationship Specialty Start Date End Date Elsewhere, Pcp PCP - General Family Medicine 12/25/21
--- OUTSIDE RECORDS SUMMARY | 2022-11-08 13:56 | XMS_ITS | Encounter Summary ---
:1965 Author Organization [facility] Address [address], [place] [address] Care Team Providers Name Role Phone Jose Holden MD Primary Care Provider [phone] Reason for Visit Reason Comments QUESTIONS, GENERAL Encounter Details Date Type Department Care Team Description 02/03/2018 Telephone [facility] Pete Gonzalez MD QUESTIONS, GENERAL [facility]Ortho [place], [place] [address] [address] [place] [address] [phone] Social History Tobacco Use Types Packs/Day Years [...] PA. Chava Simon RN 02/03/2018, 12:01 PM HANA ARCHITECT Gi De La Vega - 02/03/2018 11:55 AM CST Patient calling to speak to Jamir. Would like to know about her surgery. Ball Maker did let patient know that Ana Rosa scheduler is out of the office. She did request to speak to Jamir. Please call her at listed number. Thanks HANA ARCHITECT documented in this encounter Plan of Treatment Upcoming Encounters Date Type Specialty Care Team Description 12/02/2022 Appointment Orthopedics Donald Medley MD 1601 [facility] [address] [place] [phone] (Wo rk) 12/31/2022 Appointment Orthopedics Donald Medley MD 1601 [facility] [address] [place] [phone] (Wo rk) documented as of this encounter Visit Diagnoses Not on filedocumented in this encounter Care Teams Esthetician Relationship Specialty Start Date End Date Jose Holden MD PCP - General Otolaryngology 12/14/17 [place] [phone] documented as of this encounter
--- OUTSIDE RECORDS SUMMARY | 2022-11-08 13:56 | XMS_ITS | Encounter Summary ---
:1965 Author Organization [facility] Address [address] [place] [address] Care Team Providers Name Role Phone Elsewhere, Pcp Primary Care Provider Unavailable Reason for Visit Reason Comments Walking day care assistant device Fazal and Neurosurgery Encounter Details Date Type Department Care Team Description 09/06/2022 Clinical Communication Department of Robert Diehl day care assistant Neurology in L, M.DBritton device ([facility] [place], [address] [place] [address] Neurosurgery ) [place], [place] [address] [place] [address] [place], [place] [phone] (Work) [phone] Social History Tobacco Use Types Packs/Day Years [...] attend oriental orthodox or Patient refused 2021 latter-day services? Do [...] in contact with about getting a walking day care assistant device that will help her get [...] Stroke Cerebrovascular Accident Personal History Claire Aguayo, Examining Chair Assembler 09/06/22 1:47 PM CDT documented in this encounter Plan of Treatment Not on filedocumented as of this encounter Visit Diagnoses Not on filedocumented in this encounter Additional Health Concerns Assessment Noted Time PHQ-9 Depression Total Score: 16 02/11/2021 12:00 AM C DT documented as of this encounter Care Teams Caterpillar Mechanic Relationship Specialty Start Date End Date Elsewhere, Pcp PCP - General Family Medicine 12/25/21 documented as of this encounter
--- OUTSIDE RECORDS SUMMARY | 2022-11-08 13:56 | XMS_ITS | Encounter Summary ---
:1965 Author Organization [facility] Address [address] [place] [place] [address] Care Team Providers Name Role Phone Jose Holden MD Primary Care Provider Encounter Details Date Type Department Care Team Description 12/02/2017 Orders Only External to Pete Gonzalez MD [address] [place] [address] (Wo rk) Social History Tobacco [...] 12/02/2022 Appointment Orthopedics Donald Medley MD 1601 [facility] 200 [place] [phone] (Wo rk) 12/31/2022 Appointment Orthopedics Donald Medley MD 1601 [facility] 200 [place], [place] [phone] (Wo rk) documented as of this encounter Procedures Procedure Name Priority Date/Time Associated Diagnosis Comme nts MRI SPINE--SCAN 12/02/2017 12:00 AM Resul ts for this BRANCH SERVICE SPECIALIST procedure are i n the results section. documented in this encounter Results MRI SPINE--SCAN (12/02/2017 12:00 AM BRANCH SERVICE SPECIALIST) Anatomical Region Laterality Modality Other Specimen (Source) Anatomical Location Collection Method / Collectio n Time Received Time / Laterality Volume 12/02/2017 Narrative This result has an attachment that is no t available. Pete Gonzalez MD DUMMY/OTHER/AR documented in this encounter Visit Diagnoses Not on filedocumented in this encounter Care Teams Head Paper Tester Relationship Specialty Start Date End Date Jose Holden MD PCP - General Otolaryngology 12/14/[address] [facility] [place] [place] [address] documented as of this encounter
--- OUTSIDE RECORDS SUMMARY | 2022-11-08 13:56 | XMS_ITS | Encounter Summary ---
:[address] [facility] Address [address] [place] [address] Care Team Providers Name Role Phone Unassigned, Provider Primary Care Provider Unavailable Encounter Details Date Type Department Care Team Description 11/04/2005 [facility] Curtis Antoine Op Report-Archive [facility] [place] [address] [address] [phone] [place], [place] [phone] Social History Tobacco Use Types Packs/Day Years Used Date Smoking Tobacco: Never Assessed Sex Assigned at Date Recorded Not on file documented as of this encounter Plan of Treatment Upcoming Encounters Date Type Specialty Care Team Description 12/02/2022 Appointment Orthopedics Donald Medley MD [address] [phone] (Wo rk) 12/31/2022 Appointment Orthopedics Donald Medley MD [address] [phone] (Wo rk) documented as of this encounter Visit Diagnoses Not on filedocumented in this encounter Care Teams Staff Nurse Midwife Relationship Specialty Start Date End Date Unassigned, Provider PCP - General 08/05/03 12/13/17 [address] [place] [address] documented as of this encounter
--- OUTSIDE RECORDS SUMMARY | 2022-11-08 13:56 | XMS_ITS | Encounter Summary ---
:1965 Author Organization [facility] Address [address] [place] [address] Care Team Providers Name Role Phone Elsewhere, Pcp Primary Care Provider Unavailable Encounter Details Date Type Department Care Team Description 09/06/2022 Documentation Department of Orthopedic Cyrus Polk, Surgery in [facility] 200 [facility] 200 [place] [address] [phone] (Wo rk) Social History Tobacco Use Types [...] you attend islam or Patient refused 2021 taoism services? Do [...] or the highest technical, or vocational p [employer] Software[employer] degree you have received? Sex Assigned [...] Cyrus Polk M.D. CT CT Job ID: [id number] documented in this encounter Plan of Treatment Not on filedocumented as of this encounter Visit Diagnoses Not on filedocumented in this encounter Additional Health Concerns Assessment Noted Time PHQ-9 Depression Total Score: 16 02/11/2021 12:00 AM C DT documented as of this encounter Care Teams Multiple Sclerosis Nurse Relationship Specialty Start Date End Date Elsewhere, Pcp PCP - General Family Medicine 12/25/21 documented as of this encounter
--- OUTSIDE RECORDS SUMMARY | 2022-11-08 13:56 | XMS_ITS | Encounter Summary ---
:1965 Author Organization [facility] Address [address], [place] [address] Care Team Providers Name Role Phone Unassigned, Provider Primary Care Provider Unavailable Reason for Referral Procedure/Equipment (Routine) - Incomplete Specialty Diagnoses / Procedures Referred By Contact Clyde bains To Contact Diagnoses Screening procedure Pseudarthrosis after fusion or arthrodesis Pete Gonzalez MD Procedures FL Video Swallow Study [address] [place] [address] Referral ID Status Reason Start Date Expiration Date Visits V isits Requested Authorized [id number] Incomplete 11/29/2017 02/28/2019 1 1 herapies (Routine) - Closed Specialty Diagnoses / Procedures Referred By Contact Clyde bains To Contact Diagnoses Pseudarthrosis after fusion or arthrodesis Screening procedure Pete Gonzalez MD [address] [place] [address] Referral ID Status Reason Start Date Expiration Date Visits Requ ested Visits Authorized [id number] Closed 11/29/2017 01/28/2018 1 1 Scheduling Instructions Your provider has recommended an appoint ment with a [facility]. Please stop at the clinic check out desk for as sistance with scheduling or if you prefer to call for your appointment you may call [facility] at [phone]. We suggest you call your [facility] insurance company about your coverage and benefits for this appointment. CTOR OF CLOUD SERVICES Consult/Transfer Care (Routine) - Closed Specialty Diagnoses / Procedures Referred By Contact Refer red To Contact Diagnoses Pseudarthrosis after fusion or arthrodesis Screening procedure Pete Gonzalez MD [address] [place] [address] Referral ID Status Reason Start Date Expiration Date Visits Requ ested Visits Authorized [id number] Closed 11/29/2017 02/28/2019 1 1 Scheduling Instructions Your provider has recommended an appoint ment with [facility]. You may call [phone], Time [employer]so n 3, to schedule your appointment. If you prefer, a cloth finisher will contact you heena hebert the next 3 business days to assist you in setting up this appointment. We suggest you call your health insurance company about your coverage and benefits for this appo intment. CTOR OF CLOUD SERVICES Procedure/Equipment (Routine) - Incomplete Specialty Diagnoses / Procedures Referred By Contact Refer red To Contact Diagnoses Screening procedure Pseudarthrosis after fusion or arthrodesis Pete Gonzalez MD Procedures XR Cervical Spine W Flex And Ext [address] [place] [address] Referral ID Status Reason Start Date Expiration Date Visits V isits Requested Authorized [id number] Incomplete 10/31/2017 01/30/2019 1 1 CTOR OF CLOUD SERVICES Reason for Visit Reason Comments SECOND OPINION Consult/Transfer Care (Routine) - Closed Specialty Diagnoses / Procedures Referred By Contact Refer red To Contact Neurosurgery Ihsan Brooke MD [facility]tho [facility] [place] [address] [address] [place] [address] Phone: Fax: Referral ID Status Reason Start Date Expiration Date Visits Requ ested Visits Authorized [id number] Closed 09/26/2017 12/26/2018 1 1 Encounter Details Date Type Department Care Team Description 11/29/2017 Office Visit [facility] Pete Gonzalez, Pseudarthr osis after fusion or arthrodesis (Primary Dx); [facility] Cervical spondylosis with radiculopathy; Neurosurgery/Ortho [address] Bilater al occipital neuralgia; [address] Screening procedure [address] [place] [address] [place] [address] [phone] Social History Tobacco Use Types Packs/Day Years Used Date Smoking Tobacco: Every Day Cigarettes 0.5 Smokeless Tobacco: Never Alcohol Use Standard Drinks/Week Comments No 0 (1 standard drink = 0.6 oz pure alcoho l) Sex Assigned at Date Recorded Not on file documented as of this encounter Last Filed Vital Signs Vital Sign Reading Time Taken Comments Blood Pressure 126/77 11/29/2017 10:21 AM DIRECTOR OF CLOUD SERVICES Pulse 77 11/29/2017 10:21 AM DIRECTOR OF CLOUD SERVICES Temperature - - Respiratory Rate - - Oxygen Saturation - - Inhaled Oxygen Concentration - - Weight 75.4 kg (166 lb 3.2 oz) 11/29/2017 10:21 AM DIRECTOR OF CLOUD SERVICES Height 152.4 cm (5') 11/29/2017 10:21 AM DIRECTOR OF CLOUD SERVICES Body Mass Index 32.46 11/29/2017 10:21 AM DIRECTOR OF CLOUD SERVICES documented in this encounter Patient Instructions Patient InstructionsChava Simon RN - 11/29/2017 10:00 AM CST [facility] Patient Instructions Tests: You will [...] your understanding. Please call the Neurosurgery Center [phone] with any further questions or concerns or if your symptoms worsen. Thank you for coming to see us today. We are your partner. CTOR OF CLOUD SERVICES documented in this encounter Progress Notes Lois [...] C3-T1 posterior cervical fusion done at [facility] in [place] multiple years ago. The T1 screws are [...] on fentanyl, ms contin and oxycontin in [place]. PSURGHX:No past surgical history on file. PMEDHX:No past medical history on file. MEDICATIONS: Outpatient Prescriptions as of 11/29/2017: benzonatate (TESSALON) 100 MG capsule Take 100 mg by mouth. Note (11/29/2017): Received from: [facility] Received Sig: Take 1 capsule by mouth 3 times daily if needed for Cough. Disp: Rfl: budesonide-formoterol (SYMBICORT) 160-4.5 MCG/ACT inhaler Inhale 2 Puffs. Note (11/29/2017): [facility] Received Sig: INHALE 2 PUFFS BY MOUTH [...] Tab by mouth. Note (11/29/2017): Received from: [facility] Received Sig: Take 1 tablet bymouth [...] No narrative on file ROS: Reviewed per [facility] Neurosurgery New Patient Health Packet History [...] 4/5 C7 Triceps: 5/5 4/5 C8 Finger flexors/rider ticket worker: 5/5 5/5 T1 Intrinsics: 5/5 5/5 Sensation: Intact with light touch bue/ble. Skin: Warm to touch to bilateral upper/lower extremities. No skin rashes or lesions noted RADIOLOGY: Personally reviewed CT scans from OSH as well as XR from here. No formal report for either available. Shows previous C3-T1 posterior fusion, appears fused C3-C6, screws at T1 appear lose. Y1dwvfca through the facet joint. ASSESSMENT: 52 year old female s/p multiple previous cervical spine surgeries including C3-T1 posterior fusion (done in [place] approx 6 [...] of the chart to: Ihsan Brooke MD [address] [place] [address] Lois Pham PA-C, 11/29/2017, 12:34 PM CTOR OF CLOUD SERVICES documented in this encounter Plan of Treatment Upcoming Encounters Date Type Specialty Care Team Description 12/02/2022 Appointment Orthopedics Donald Medley MD [address] [facility] [address] [place] [phone] (Wo rk) 12/31/2022 Appointment OrthopedicDonald Thomas MD [address] [facility] [address] [place] [phone] (Wo rk) Scheduled Referrals Name Type Priority Associated Diagnoses Order S chedule Otolaryngology Consult Referral Routine Pseudarthrosis aft er Ordered: Adult/Peds fusion or arthro desis 11/29/2017 Screening procedure Speech Therapy Referral Routine Pseudarthrosis after Order ed: fusion or arthro desis 11/29/2017 Screening procedure documented as of this encounter Results FL Video Swallow Study (12/26/2017 1:03 PM DIRECTOR OF CLOUD SERVICES) Anatomical Region Laterality Modality Neck, Chest Radio Fluoroscopy Specimen (Source) Anatomical Collection Method Collection Time Re ceived Time Location / / Volume Laterality 12/26/2017 1:03 PM DIRECTOR OF CLOUD SERVICES Narrative 12/26/2017 6:00 PM DIRECTOR OF CLOUD SERVICES FL VIDEO SWALLOW STUDY 12/26/2017 1:03 PM [...] W Flex And Ext (11/29/2017 9:54 AM DIRECTOR OF CLOUD SERVICES) Anatomical Region Laterality Modality Spine, C-Spine, Neck Computed Radiograph y Specimen (Source) Anatomical Collection Method Collection Time Re ceived Time Location / / Volume Laterality 11/29/2017 9:54 AM DIRECTOR OF CLOUD SERVICES Narrative 11/29/2017 10:59 AM DIRECTOR OF CLOUD SERVICES XR CERVICAL SPINE W FLEX AND EXT [...] status documented in this encounter Care Teams Bakery Pastry Internship Relationship Specialty Start Date End Date Unassigned, Provider PCP - General 08/05/03 12/13/[address] [place] [address] documented as of this encounter
--- OUTSIDE RECORDS SUMMARY | 2022-11-08 13:56 | XMS_ITS | Encounter Summary ---
:1965 Author Organization [facility] Address [address], [place] [address] Care Team Providers Name Role Phone Jose Hloden MD Primary Care Provider [phone] Reason for Visit Reason Comments QUESTIONS, GENERAL Encounter Details Date Type Department Care Team Description 01/19/2018 Telephone [facility] Pete Gonzalez MD QUESTIONS, GENERAL [facility]Ortho [place], [place] [address] [address] [place] [address] [phone] Social History Tobacco Use Types Packs/Day Years [...] received via mail from [facility]. CD given to RN DING PRINCIPAL Chava Simon RN - 01/19/2018 12:00 PM CST Patient states she will bring the MRI CD hopefully tomorrow 01/20/2018. Chava Simon RN 01/19/2018, 12:01 PM DING PRINCIPAL Gi De La Vega - 01/19/2018 11:47 AM CST Patient calling to speak to RN. Would like to speak to him regarding an MRI CD? Please call her at [phone]. DING PRINCIPAL documented in this encounter Plan of Treatment Upcoming Encounters Date Type Specialty Care Team Description 12/02/2022 Appointment Orthopedics Donald Medley MD [address] [facility] [address] [phone] (Wo rk) 12/31/2022 Appointment Orthopedics Donald Medley MD [facility] [facility] [address] [phone] (Wo rk) documented as of this encounter Visit Diagnoses Not on filedocumented in this encounter Care Teams Logging Specialist Relationship Specialty Start Date End Date Jose Holden MD PCP - General Otolaryngology 12/14/[address] [place] [address] documented as of this encounter
--- OUTSIDE RECORDS SUMMARY | 2022-11-08 13:57 | XMS_ITS | Encounter Summary ---
:1965 Author Organization [facility] Address [address] [place] [address] Care Team Providers Name Role Phone Elsewhere, Pcp Primary Care Provider Unavailable Reason for Visit Reason Comments Patient needs to r/s Jul 02 appointments Encounter Details Date Type Department Care Team Description 06/28/2022 Clinical Communication RST ANDREW Pollard, Patient needs to r/s [address] [facility] Lilian Hughes Jul 02 appointments [place], [place] [address] [place] [address] [place] [address] Social History Tobacco Use Types Packs/Day Years [...] you attend jewish or Patient refused 2021 judaism services? Do [...] call patient re: this . Ronny, Maritza [phone] documented in this encounter Plan of Treatment Not on filedocumented as of this encounter Visit Diagnoses Not on filedocumented in this encounter Additional Health Concerns Assessment Noted Time PHQ-9 Depression Total Score: 16 02/11/2021 12:00 AM C DT documented as of this encounter Care Teams Network Controller Relationship Specialty Start Date End Date Elsewhere, Pcp PCP - General Family Medicine 12/25/21 documented as of this encounter
--- OUTSIDE RECORDS SUMMARY | 2022-11-08 13:57 | XMS_ITS | Encounter Summary ---
:1965 Author Organization [facility] Address [address] [place] [address] Care Team Providers Name Role Phone Elsewhere, Pcp Primary Care Provider Unavailable Reason for Visit Reason Onset Date Comments Left Without Being Seen 07/22/2022 Physical Therapy (Routine) - Authorized Specialty Diagnoses / Procedures Referred By Contact Refer red To Contact Diagnoses Aftercare Total Shoulder Arthroplasty Flavia Broderick M.D. [facility] Procedures PT or OT eval and treat (first available) Referral ID Status Reason Start Date Expiration Date Visits V isits Requested Authorized [id number] Authorized 06/23/2022 06/23/2023 99 99 Encounter Details Date Type Department Care Team Description 06/29/2022 Comprehensive Visit Department of Physical Juaquin Broderick M.D. Procedure And Treatment Not Carried Out Due To Patient Leaving Prior To Being Seen By Health Care Provider (Primary Dx); Medicine and Jessie Faye M.S., O.T. [address] [place] [id number] Aftercare Total Shoulder Arthroplasty Rehabilitation in [place], [place] [address] [place] [address] Social History Tobacco Use Types Packs/Day Years [...] you attend druze or Patient refused 2021 quaker services? Do you belong to any clubs or No 05/17/2022 organizations such as druze groups, unions, fraAppolicious or athletic groups, or school groups? How [...] X-ray and Dr. Polk. Patient arrived at [place] [address] des and was rescheduled. documented in this [...] as of this encounter Care Teams Natural Sciences Manager Relationship Specialty Start Date End Date Elsewhere, Pcp PCP - General Family Medicine 12/25/21 documented as of this encounter
--- OUTSIDE RECORDS SUMMARY | 2022-11-08 13:57 | XMS_ITS | Encounter Summary ---
:1965 Author Organization [facility] Address [address] [place] [address] Care Team Providers Name Role Phone Elsewhere, Pcp Primary Care Provider Unavailable Reason for Visit Reason Comments Pregabalin prescription Encounter Details Date Type Department Care Team Description 06/22/2022 Clinical Communication RST ANDREW Pollard, Pregabalin [address] [facility] Lilian Hughes prescription [place], [place] 200 [facility] [address] [place] [address] Social History Tobacco Use Types Packs/Day Years [...] you attend adventism or Patient refused 2021 episcopal services? Do [...] Maritza Carrillo - 06/22/2022 12:18 PM CDT [facility] called. The patient had a prescription for Pregabalin sent to one of the [place] pharmacies on 06/17/22 and she never picked it up. [facility] would like the prescription sent to them since they provide the prescriptions to the patient. Please phone or send a new prescription for Pregabalin 300 mg to [facility] in [place]. Please do as soon as able, the patient is out of this medication. Thank you, Maritza [phone] documented in this encounter Plan of Treatment Not on filedocumented as of this encounter Visit Diagnoses Not on filedocumented in this encounter Additional Health Concerns Assessment Noted Time PHQ-9 Depression Total Score: 16 02/11/2021 12:00 AM C DT documented as of this encounter Care Teams Woodyard Operator Relationship Specialty Start Date End Date Elsewhere, Pcp PCP - General Family Medicine 12/25/21 documented as of this encounter
--- OUTSIDE RECORDS SUMMARY | 2022-11-08 13:57 | XMS_ITS | Encounter Summary ---
:1965 Author Organization [facility] Address [address] [place] [address] Care Team Providers Name Role Phone Elsewhere, Pcp Primary Care Provider Unavailable Reason for Visit Reason Comments Medication Question Encounter Details Date Type Department Care Team Description 06/21/2022 Clinical Communication RST ANDREW Pollard, Medication Question 200 [facility] Lilian Hughes [place], [place] 200 [facility] [address] [place] [address] Social History Tobacco Use Types Packs/Day Years [...] you attend congregation or Patient refused 2021 bahai services? Do [...] 1:12 PM CDT Prescriptions are sent to [place] Telephone Encounter - Brenda Wright - 06/23/2022 3:02 PM CDT The patient called again re: her pregabalin prescription. She did not pick it up at the hospital pharmacy since she did not know it was there. Her regular pharmacy is [facility] in [place]. A newprescription needs to be sent to [facility] in [place]. The patient is out of this medication. Please call the patient if any questions: . She has been calling and has not heard from anyone re: this. Maritza Jefferson [phone] Patient is saying that she never was told to fruit or nut picker the following prescription when she was discharged on 06/17: pregabalin (LYRICA) 300 mg capsule Please send new prescription to [facility] in [place], [place] Please call patient if there are any questions. Brenda Jefferson [phone] documented in this encounter Plan of Treatment Not on filedocumented as of this encounter Visit Diagnoses Not on filedocumented in this encounter Additional Health Concerns Assessment Noted Time PHQ-9 Depression Total Score: 16 02/11/2021 12:00 AM C DT documented as of this encounter Care Teams Rn Procedures Relationship Specialty Start Date End Date Elsewhere, Pcp PCP - General Family Medicine 12/25/21 documented as of this encounter
--- OUTSIDE RECORDS SUMMARY | 2022-11-08 13:57 | XMS_ITS | Encounter Summary ---
:1965 Author Organization [facility] Address [address] [place] [address] Care Team Providers Name Role Phone Elsewhere, Pcp Primary Care Provider Unavailable Reason for Visit Appointment Request (Routine) - Closed Specialty Diagnoses / Procedures Referred By Contact Refer red To Contact Orthopedic Surgery Diagnoses Aftercare Total Shoulder Arthroplasty Referral ID Status Reason Start Date Expiration Date Visits Requ ested Visits Authorized [id number] Closed 06/23/2022 06/23/2023 1 1 Encounter Details Date Type Department Care Team Description 06/29/2022 Office Visit Department of Cyrus Polk Orthopedic Surgery in Lilian Souza (Primary Dx) [place], [place] [address] [place] [address] 200 [place] [address] [phone] Social History Tobacco Use Types Packs/Day Years [...] dismissed to follow up through the [facility], Department of Orthopedic Surgery Total Joint [...] documented as of this encounter Care Teams Freelance Translator Relationship Specialty Start Date End Date Elsewhere, Pcp PCP - General Family Medicine 12/25/21 documented as of this encounter
--- OUTSIDE RECORDS SUMMARY | 2022-11-08 13:57 | XMS_ITS | Encounter Summary ---
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 Diagnoses Weakness General Pain Back Ataxia Repeated Falls Debility Primary Osteoarthritis Shoulder Left 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 Stroke Cerebrovascular Accident Personal History Fusion Cervical Spine Status Post Maira Haynes, Fibromyalgia Chronic Pain Syndrome 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 [address] [place] [id number] Weakness General (Primary Dx); 06/18/2022 [facility] [address] [place] [phone] Incontinence Urinary; [facility], Saul Pollard M.D. [address] [place] [phone] Pain Back; Domitilla Ataxia; Building, Third Repeated Fal ls; Floor Debility; [address] [facility] Primary Osteoarthritis Shoul marquis Left; [place], [place] Ataxia From [facility] Cerebrovascular Accident; [id number] Stroke Cerebrovascular Accid ent Personal History; [phone] Fusion Cervical Spine Status Post; Fibromyalgia; Chronic [...] you attend hindu or Patient refused 2021 yarsanism services? Do [...] AM CDT DISCHARGE SUMMARY BRIEF OVERVIEW Hospital: [facility] Discharge Provider: Saul Pollard M.D. Primary Team: [facility] Medicine ([facility]) Primary [...] FOLLOW UP Scheduled Appointments 06/21/2022 11:00 AM [facility] PHARMACIST [address] [place] [address] Pharmacy For appointment details refer to your Patient Appointment Guide. TEST RESULTS PENDING AT DISCHARGE Pending Labs Order Current Status Basic Metabolic Panel In process DETAILS OF HOSPITAL STAY REASON FOR ADMISSION Pain Back Weakness General Incontinence Urinary Ataxia Repeated Falls HOSPITAL COURSE Ms. Mosquera is hospitalized on [facility] Medicine ([facility]) for [...] and evaluated the patient, participating in the dodosn portions of the service. I reviewed the [...] does not want to transition to a mcfp facility currently. She will be stable to discharge once her MRI of the brain and spine results are back and if they are not concerning. Saul Pollard M.D. Maira Haynes M.D. - 06/17/2022 2:07 PM CDT DISCHARGE SUMMARY BRIEF OVERVIEW Hospital: [facility] Discharge Provider: Saul Pollard M.D. Primary Team: [facility] Medicine 4 ([facility]) [...] HOSPITAL COURSE Ms. Mosquera is hospitalized on [facility] Medicine 4 ([facility]) [...] AM CDT You were discharged from the [facility] Medicine 4 ([facility]) [...] needed, Assistance with walking and moving around [facility] Discharge information provided on 06/16/2022 Contact information: [facility], [address] [place], Tessie Arora - 06/17/2022 10:50 AM CDT Take a copy of this after visit summary to your appointment(s). REID NATH June 28, 2022 - Tuesday --10:00 AM - Hospital Follow-Up with Dr. Blackwell, primary care provider, at [facility] [place] RECOMMENDATIONS: * * [facility] You may have outpatient appointments at [facility] that changed during your hospitalization. Refer to your [facility] Patient Visit Guide (PVG) for the most current schedule of appointments and detailed instructions of tests/procedures. Call [phone], if you did not receive an PVG or need to CANCEL any [facility] appointment(s). AttachmentsThe following attachments cannot be sent through Care Everywhere. Pregabalin (By mouth) ([place])Furosemide (By mouth) ([place])documented in this encounter Medications at Time of [...] THC multivit-min/iron/folic/ Take 1 tablet by 0 [id number] (HAIR, SKIN AND mouth daily. NAILS ADVANCED [...] Discussed patient's care with PT Outcome Measures [facility] Inpatient Short Form: Putting on and [...] Standardized Score: 44.27 Interpretation: Clinicians answer the [facility] Inpatient Short Form based on observed [...] Assistance with meal preparation, Assistance with manager of financial planning, Assistance with shopping, Assistance with housekeeping, Assistance [...] 06/17/2022 8:00 PM CDT T Medicine 4 ([facility]) PROGRESS NOTE SUBJECTIVE [...] / PLAN Ms. Mosquera is hospitalized on [facility] 4 ([facility]) for evaluation and [...] Right Lives With: Alone Receives Help From: turbine attendant, Family, Friend(s) (Son lives in apt next to her.) ADL Assistance: Required assistance ADL Assistance Comments: Gets help from RETAIL SERVICE SPECIALIST for her bath/shower 3x/week, and for her meals, RN once every 2 weeks. IADL/Homemaking Assistance: Required assistance IADL/Homemaking Assistance Comments: Gets help for housecleaning Driving: Does not drive Driving Comments: Friend assists Occupational Role: On disability Occupational Role Comments: Previously worked at a [employer] and [employer] Prior Mobility/Functional Transfers Level of [place]: Needs assistance Gait Devices/Wheelchair Used Comments: No [...] Additional Staff Present During Session: RN and school transportation director Outcome Measures [facility] Inpatient Short Form: [facility] Basic Mobility (V.2) How much help [...] 3-5 steps with a railing?: A Lot [facility] Basic Mobility (V.2) Raw Score: 21 [facility] Basic Mobility (V.2) Standardized Score: 45.55 Interpretation: Clinicians answer the [facility] Inpatient Short Form based on observed [...] discharge:pending hospital course Marlene Wu Pharm.D., R.Ph. [phone] Marlene Wu Pharm.D., R.Ph. - 06/16/2022 1:14 PM CDT Images from the original note were not included. Admission Medication History Note Medication list source: Patient + [facility] refill history (patient gets her scheduled [...] Take 150 mg by mouth every morning. khmdjmkcvy-jsaqfsgsxkdbr-ognd (ESGIC) 50-325-40 mg per tablet Past Month [...] 1 spray as needed. 5 mg THC multivit-min/iron/folic/irh514 (HAIR, SKIN AND NAILS ADVANCED ORAL) Past [...] Cornelius). Per Ms. Mosquera, she lost her pantograph engraver months ago so has not been able to charge the device. Device was interrogated, however, it was unable to connect to the principal statistical programmer, likely due to the battery being depleted per patient report. agriculture technician Mandy in room during interrogation and aware that device is off. Carley Mendez M.D. PGY-3, Anesthesiology and Perioperative Medicine documented in this encounter H&P Notes Renetta Michael M.D., M.S. - 06/15/2022 11:41 PM CDT Images from the original note were not included. T Medicine 4 ([facility]) - ADMISSION [...] but left AMA. She presented to the [place] ED 06/15. In the ED, she was [...] Urinalysis Case will be staffed with supervising medical social consultant within 24 hours. Please page the [facility] Medicine 4 ([facility]) service pager at [phone] with questions or concerns. Renetta Michael M.D., M.S. PGY-3 [phone] Department of Internal Medicine Kiran Melton M.D. - 06/15/2022 12:05 AM CDT [facility] Medicine 4 ([facility]) [...] overflow incontinence. She was seen in the [place] ER a few days ago where they obtained a CT head without evidence for new infarct. She left against medical advice and came to [place] for re-evaluation. Upon arrival to the ED, [...] Take 150 mg by mouth every morning. jeuhsdmwpi-tkimkqiaymdxb-qigj (ESGIC) 50-325-40 mg per tablet, Take 1 [...] 1 spray as needed. 5 mg THC multivit-min/iron/folic/kyw411 (HAIR, SKIN AND NAILS ADVANCED ORAL), Take [...] / PLAN Ms. Mosquera is hospitalized on [place] [id number] ([facility]) for evaluation and management [...] or life-threatening deterioration of the following conditions: SOCIAL AND HUMAN SERVICES ASSISTANT failure or compromise Critical care was time [...] Care [facility] OBJECTIVE Desk Manager met with patient to discuss final discharge plans. Patient is agreeable to restart her home health nursing and SECOND VP HR ASSESSMENT along with PT. Patient will have her friend transport her home today. ASSESSMENT / PLAN Assessment The patient appear to have insight into the patient's needs at this time and are planning appropriately for discharge needs. They report agreement with the below plan with no further questions at this time. Plan [facility] Georgette RN: [phone] Home health requesting an AVS discharge summary [...] directive. PRIMARY SERVICE: - Please provide a non-[facility] home health order for resumption of previous [...] Landin R.N. 06/18/2022 Ihrke, Claire Brumfield O.T., [facility] - 06/17/2022 9:53 AM CDT Occupational Therapy [...] (Dependence) Uncomplicated (HCC) Nicotine Dependence Unspecified Other Milk Powder Grinder Current Drug Therapy Direct Infection Of Left [...] Right Lives With: Alone Receives Help From: turbine attendant, Family, Friend(s) (Son lives in apt next to her.) ADL Assistance: Required assistance ADL Assistance Comments: Gets help from RETAIL SERVICE SPECIALIST for her bath/shower 3x/week, and for her meals, RN once every 2 weeks. IADL/Homemaking Assistance: Required assistance IADL/Homemaking Assistance Comments: Gets help for housecleaning Driving: Does not drive Driving Comments: Friend assists Occupational Role: On disability Occupational Role Comments: Previously worked at a [employer] and [employer] Prior Mobility/Functional Transfers Level of [place]: Needs assistance Previous Transfer/Mobility Assistance Comments: Patient [...] lethargic, yet impulsive required assistance to [facility] gown and shoulder immobilizer to maximize [...] and patient's status was discussed Outcome Measures -[facility] Inpatient Short Form: Putting on and taking [...] Standardized Score: 32.03 Interpretation: Clinicians answer the -[facility] Inpatient Short Form based on observed patient [...] Assistance with meal preparation, Assistance with manager of financial planning, Assistance with shopping, Assistance with housekeeping, Assistance [...] Planning Assessment SUBJECTIVE Assessment Information Referral Source: shed hand Referral Reason: Discharge Planning Primary Language: [place] Special Education Associate Services Used: No Person(s) present during [...] Pleasant, Calm Communication: Talks, Understands speaking, Understands [place] Shopping: Needs assistance Transportation: Support from family Medication Management: Independent Housekeeping: Dependent Meal Prep: Needs assistance Managing Finances: Needs assistance Assistive Devices: Cane, Tub/shower chair/bench Services/Resources: Home health Agency Name: Home health reconnect Services Provided: mcfp twice monthly, SECOND VP HR ASSESSMENT 3 times a week Baseline Services/Resources Primary care clinic and provider: ELSEWHERE, PCP Services/Resources: Home health Additional Resources: none Anticipated Needs Functional Status: Bathing, Dressing, Grooming/hygeine, Meal preparation, Medication set-up/administration, Housekeeping, Shopping, Transportation use (drive car, use taxi/bus) Assistive Devices: Tub/shower chair/bench, Grab bars - toilet, Grab bars - wall Services/Resources: Home health Agency Name: Home health reconnect Services Provided: mcfp twice monthly, SECOND VP HR ASSESSMENT 3 times a week Anticipated Modifications to the Patient's Home: Grab Bars Transportation Needs: Support from family Does the patient need discharge transport arranged?: No Phone Number for Ride/Caregiver: son or daughter Anticipated Discharge Destination: Home-Health Care [facility] ASSESSMENT / PLAN Assessment: The shed hand met with Angie Mosquera to discuss her current hospitalization and home goingneeds. The patient was unaccompanied. The patient was a reliable historian. The role of shed hand was reviewed. The patient reviewed her prior level of care and support system. The patient receives support from her daughter, son, and home care staff . The patient described her living environment as a apartment with elevator access with level entry. Housekeeping, grocery shopping, meal prep, and other household responsibilities have previously been completed by patient and patient's son. shed hand discussed the patient's potential needs at tooele [...] ADL's. She currently has home health through [facility] for mcfp twice monthly and SECOND VP HR ASSESSMENT 3 times a week for 1 1/2-2 [...] the following as their current vendor(s): [facility]. After reviewing the patient's chart and meeting with the patient, the shed hand deemed the LACE+/readmission questions were appropriate. The [...] readmission could not have been prevented. The shed hand will share this information with the care team. The patient reports understanding that she will dismiss from the hospital when medically stable. Pending hospital course and medical readiness, no barriers to dismissal have been identified at this time. Plan: The patient agrees with the following plan. Patient's anticipated discharge disposition is: Home with Home Healthcare Reconnected: [facility] Transportation upon dismissal will be provided by family--son or daughter . shed hand recommended a shower seat, grab bars, home delivery of groceries, and reaching out to family, friends, and neighbors for assistance. shed hand provided information regarding the dismissal process and the Advance Health Care Planning: Making Your Wishes Known [id number] booklet along with education on the benefits of completing an advance directive and resources that may assist them in this process. The patient sharedno further questions or concerns regarding advance directives. The patient appears to have an understanding of how to complete an advance directive and reported awareness of resources to assist them. shed hand placed or requested the following hospital-based consult orders and/or referrals: PT/OT. shed hand will continue to assess for homegoing needs with the interdisciplinary team. shed hand encouraged the patient to reach out with any questions/concerns. Patient to discharge with home health care. [facility] Georgette RN: [phone] Home health requesting an AVS discharge summary [...] directive. PRIMARY SERVICE: - Please provide a non-[facility] home health order for resumption of previous [...] Prescriptions are provided by pain management through [facility] and her PCP Dr. Blackwell. [...] lumbosacral radicular pain, last reportedly revised at [facility] in 2019. The initial implant date is unknown. She had turned the device off for one her surgeries, then misplaced the principal statistical programmer. She has received a new principal statistical programmer, but has not gotten to using the new device. It is at her home. She thinks she has not used the SCS for several months. CURRENT MEDICATIONS: Acetaminophen 1 g four times a day Hyrdmpauscigo-tcubziep-djunvgbgq-Lipoderm cream twice a day Diclofenac 1% gel [...] mg by mouth every morning. Past Week eukiddnhkr-oyfoipxaxomcp-rsll (ESGIC) 50-325-40 mg per tablet Take 1 [...] as needed. 5 mg THC Past Week multivit-min/iron/folic/scv468 (HAIR, SKIN AND NAILS ADVANCED ORAL) Take [...] Daily Given, 1,000 mg at 06/16 1345 awsphyksclaic-rewyhjdm-hdttzbwwx in Lipoderm 2%-0.5%-2% cream 1 g 1 [...] PRN Given, 100 mg at 06/16 921 kmxyipheit-oovaxgkqbdenc-ncpp 50-325-40 mg per tablet 1 tablet (ESGIC) [...] Depth/Rhythm: Regular (06/15/228 : Asia Cortez R.N., [place]) PAIN PHYSICAL EXAM GENERAL: Pleasant, 57 y.o. [...] longitudinally with an outpatient pain provider at [facility]. Though she is on several SOCIAL AND HUMAN SERVICES ASSISTANT acting medications that could increase the risk [...] organic cause for symptoms - work with [facility] to get her SCS therapy active in the outpatient setting Discussed with Pain Coffee Weigher Dr. Kaushik Gustafson. Thank you for allowing the Inpatient Pain Service to be a part of Angie Mosquera's care. The [facility] Inpatient Pain Service will sign off. Please page [phone] with questions. Anthony Shepard, Cammy, D.P.T., C.S.C.S. [...] (Dependence) Uncomplicated (HCC) Nicotine Dependence Unspecified Other Milk Powder Grinder Current Drug Therapy Direct Infection Of Left [...] Right Lives With: Alone Receives Help From: turbine attendant, Family, Friend(s) (Son lives in apt next to her.) ADL Assistance: Required assistance ADL Assistance Comments: Gets help from RETAIL SERVICE SPECIALIST for her bath/shower 3x/week, and for her meals, RN once every 2 weeks. IADL/Homemaking Assistance: Required assistance IADL/Homemaking Assistance Comments: Gets help for housecleaning Driving: Does not drive Driving Comments: Friend assists Occupational Role: On disability Occupational Role Comments: Previously worked at a [employer] and [employer] Prior Mobility/Functional Transfers Level of [place]: Needs assistance Gait Devices/Wheelchair Used Comments: No [...] surgicalmask, eye protection, and gloves Outcome Measures -[facility] Inpatient Short Form: -[facility] Basic Mobility (V.2) How much help from [...] 3-5 steps with a railing?: A Lot AM-[facility] Basic Mobility (V.2) Raw Score: 20 AM-[facility] Basic Mobility (V.2) Standardized Score: 43.99 Interpretation: Clinicians answer the -[facility] Inpatient Short Form based on observed patient [...] independent with ADLs but does have a RETAIL SERVICE SPECIALIST 3 times per week to assist with [...] is currently below her functional baseline, declining mcfp facility but agreeable to home health PT [...] She now presented to the ED at [facility] for a second opinion. Review of [...] (WELLBUTRIN XL) 150 mg, oral, Every morning vylvzmhjkn-nzjcwulbvdfzs-zeti (ESGIC) 50-325-40 mg per tablet 1 tablet, [...] 1 spray as needed. 5 mg THC multivit-min/iron/folic/azy330 (HAIR, SKIN AND NAILS ADVANCED ORAL) 1 [...] PM CDT Care of patient transferred to de by Scooter Tony. Disposition pending MRI with [...] have chronic pain and she lost the pantograph engraver for her [employer]tronic Intellis SCS device several [...] relieve her symptoms she was seen in [place] ER few days ago and had no [...] over the past weeks was recently evaluated [employer] which she had a CT of her [...] of 06/16/22 0848 e Jun 15, 2022 3946 Given patient's history exam I do have [...] medicine. 2025 Patient will go back to [place] awaiting a MRI and then disposition. 2025 [...] is a the provider I spoke with.Pager #[phone] Final Diagnoses: as of 06/16/22 0848 Weakness [...] a recent fall. Pt was seen in [place] yesterday. Ct scan performed. Pt is here for a second opinion. Elaine Winn R.N. 06/15/22 1108 documented in this encounter Miscellaneous Notes Hospital Course - Maira Haynes M.D. - 06/16/2022 7:30 AM CDT Ms. Mosquera is hospitalized on [place] [id number] ([facility]) for evaluation and management [...] Due To Embolism Right Vertebral Artery (HCC) Non-[facility] Outpatient Referral Routine Weakness Gen eral [...] CBC without Differential (06/18/2022 7:50 AM CDT) [facility] Method Time Signature Hemoglobin 11.2 (L) [...] Code Phon e Number [facility] - [address] [place], [place] [address] [facility] [place] [address] Laboratories-[facility] [address] Basic Metabolic [...] 06/18/2022 DTL Black/ mL/min/BSA 8:56 AM CDT Portuguese Comment: ----ADDITIONAL INFORMATION---- Estimated GFR calculated [...] Code Phon e Number [facility] - [address] [place], [place] [address] [facility] [place] [address] [facility] [address] MR Thoracic [...] 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 The northway intraocular lenses are absent . 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 The northway intraocular lenses are absent . 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 The northway intraocular lenses are absent . 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 The northway intraocular lenses are absent . Mild mucosal [...] left-sided foraminal stenosis at L1-2 through L3-4. cSooter Tony APRN, C.N.P. 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 The northway intraocular lenses are absent . 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 The northway intraocular lenses are absent . Mild mucosal [...] CBC without Differential (06/17/2022 8:00 AM CDT) [facility] Method Time Signature Hemoglobin 10.5 (L) [...] Code Phon e Number [facility] - [address] [place], [place] [address] [facility] [place] [address] [facility] 200 [facility] Basic Metabolic [...] 06/17/2022 DTL Black/ mL/min/BSA 9:34 AM CDT Portuguese Comment: ----ADDITIONAL INFORMATION---- Estimated GFR calculated [...] Performing Organization Address City/[facility]/ZIP [facility] Phon e Number [facility] - [address] [place], [place] [address] [facility] [place] [address] [facility] 200 [facility] (ABNORMAL) Dipstick, [...] M.D. LAB URINE ORDERABLES Performing Organization Address [facility] Phon e Number [facility] - [address] [place] [address] [facility] [place] [address] Laboratories-[address] Osmolality, Urine (06/16/2022 9:32 AM CDT) P athologist Signature Osmolality, U 745 150 - 1150 06/16/2022 DTL mOsm/kg 11:17 AM CDT Specimen Anatomical Collection Method Collection Time Receive d Time (Source) Location / / Volume Laterality Urine 06/16/2022 9:32 AM 2 CDT 10:39 AM CDT Maira Haynes M.D. LAB URINE ORDERABLES Performing Organization Address City/[facility]/ZIP Code Phon e Number [facility] - [address] pH, Random, Urine (06/16/2022 9:32 AM CDT) P athologist Signature pH, Random, U 5.0 4.5 - 8.0 06/16/2022 DTL 11:17 AM CDT Specimen Anatomical Collection Method Collection Time Receive d Time (Source) Location / / Volume Laterality Urine 06/16/2022 9:32 AM 2 CDT 10:39 AM CDT Maira Haynes M.D. LAB URINE ORDERABLES Performing Organization Address City/[facility]/ZIP Code Phon e Number [facility] - [address] (ABNORMAL) Microscopic Manual (06/16/2022 9:32 AM [...] M.D. LAB URINE ORDERABLES Performing Organization Address City/[facility]/ZIP Code Phon e Number [facility] - [id number] [place] [address] (ABNORMAL) Urinalysis with Microscopic: Urine, Catheter (06/16/2022 [...] Code Phon e Number [facility] - 200 [place], [place] [address] [facility] [place] [address] Laboratories-[facility] 200 [facility] Vitamin B12 Assay (06/16/2022 7:31 AM CDT) [...] Performing Organization Address City/[facility] Code Phon e Number [facility] - [address] Hemoglobin A1c (06/16/2022 7:31 AM CDT) P athologist Signature Hemoglobin A1c, 4.9 4.0 - 5.6 06/16/2022 DTL B % 8:13 AM CDT Specimen Anatomical Collection Method Collection Time Receive d Time (Source) Location / / Volume Laterality Blood (Blood, 06/16/2022 7:31 AM 06/16/20 7:51 Venous) CDT AM CDT Kiran Melton M.D. LAB BLOOD ADD-ON Performing Organization Address [facility] Phon e Number [facility] - [address] [place] [id number] [place] [address] (ABNORMAL) CBC without Differential (06/16/2022 7:31 AM [...] Code Phon e Number [facility] - 200 [place], [place] [address] [facility] [place] [address] Laboratories-[facility] 200 [facility] (ABNORMAL) Comprehensive Metabolic Panel (06/16/2022 [...] 06/16/2022 DTL Black/ mL/min/BSA 8:22 AM CDT Portuguese Comment: ----ADDITIONAL INFORMATION---- Estimated GFR calculated [...] M.D. LAB BLOOD ADD-ON Performing Organization Address City/State/[facility] Code Phon e Number [facility] - [address] [place] [address] [facility] [place] [address] Laboratories-[facility] 200 [facility] Critical Care (06/15/2022 8:47 PM [...] deterioration of the fo llowing conditions: SOCIAL AND HUMAN SERVICES ASSISTANT failure or compromise Critical care was time spent personally by me on the following activities: ordering and review of radiographic stud ies, ordering and review of laboratory studies, discussions with [facility] provider, discussions with consultants, examination of patient, rev iew of old charts and re-evaluation of patient's condition Scooter Tony APRN, C.N.P. PROCEDURE/MINOR SURGICA L ORDERABLES SARS Coronavirus 2, PCR Rapid, V Symptomatic (06/15/2022 7:51 PM CDT) [facility] Method Time Signature SARS CoV-2, Undetected Undetected 06/15/2022 [facility] PCR, Rapid, V 8:23 PM CDT Comment: ----ADDITIONAL INFORMATION---- This RT-PCR test was performed using the Tita SARS-CoV-2 and Influenza A/B Reagent assay from [employer], which has received Emergency Use Authori zation(EUA) by the U.S. Food and Drug Administration . Fact sheets for this Emergency Use Autho rization (EUA) assay can be found at the following link s: For Healthcare Providers: https://www.fda.gov/media/470503/downloa d For Patients: https://www.fda.gov/media/874620/downloa d SARS Coronavirus 2, Source, Rapid Swab, Nasopharynx 06/15/2022 7:58 PM CDT ST[facility] Specimen Anatomical Collection Method Collection Time Receive d Time (Source) Location / / Volume Laterality Varies 06/15/2022 7:51 PM 2 7:58 (Nasopharynx) CDT PM CDT Scooter Tony APRN, C.N.P. LAB MICROBIOLOGY - GENE RAL ORDERABLES Performing Organization Address City/State/ZIP Code Phon e Number [facility] - [address] [place], [place] [address] [place] [address] Laboratories-[facility] [address] Head [...] Venous) CDT PM CDT Narrative [facility] - 06/15/2022 3:54 PM CDT Specimen Information: Specimen ID: [id number] Specimen Type: Blood Specimen Collection Start Date: 06/15/20 ??2:48 PM Specimen Received Date: 06/15/2022 ??3:2 1 PM Specimen ID: [id number] Specimen Type: Blood Specimen Collection Start Date: 06/15/20 ??3:53 PM Specimen Received Date: 06/15/2022 ??3:5 3 PM Demarcus Ernst M.D. LAB BLOOD TROPONIN Performing Organization Address City/State/ZIP Code Phon e Number [address] [address] [place] [address] Laboratories-[facility] 200 [facility] DX Hip [...] Signature Ventricular Rate 58 BPM MUSE ECG/Min HI Interval 154 ms MUSE QRSD Interval 102 ms MUSE QT Interval 442 ms MUSE QTC Interval 433 ms MUSE P Tryon 48 degrees MUSE R Tryon -1 degrees MUSE T Wave Tryon 38 degrees MUSE Specimen Anatomical Collection Method [...] M.D. LAB BLOOD TROPONIN Performing Organization Address City/[facility] Phon e Number [facility] - 200 [place], [place] [address] [facility] [place] [address] Laboratories-[facility] 200 [facility] (ABNORMAL) Hepatic Function Panel (06/15/2022 12:37 [...] Performing Organization Address City/[facility]/ZIP Code Phon e Number [facility] - 200 [place], [place] [address] [facility] [place] [address] Laboratories-[facility] 200 [facility] Basic Metabolic [...] CDT eGFR-Black/Afric >90 >=60 06/15/2022 [facility] an Portuguese mL/min/BSA 1:34 PM CDT Comment: ----ADDITIONAL INFORMATION---- [...] Code Phon e Number [facility] - [address] [place] [address] [facility] [place] [address] Laboratories-[facility] 200 [facility] (ABNORMAL) CBC with Differential, Blood (06/15/2022 12:36 PM CDT) [facility] Method Time Signature Hemoglobin 10.4 (L) [...] LAB BLOOD ADD-ON Performing Organization Address [facility]/ZIP [facility] Phon e Number [facility] - 200 [place], [place] [address] [place] [address] [address] [address] [address] Prothrombin Time (PT) (06/15/2022 12:34 PM CDT) P athologist Signature Prothrombin 10.2 9.4 - 12.5 06/15/2022 [facility] Time, P sec 1:10 PM CDT INR 0.9 0.9 - 1.1 06/15/2022 [facility] 1:10 PM CDT Comment: ----ADDITIONAL INFORMATION---- [...] Performing Organization Address City/[facility]/ZIP Code Phon e Number [facility] - [address] [address] Laboratories-[address] Interpretation of Outside CT Spine (06/15/2022 [...] Given 06/17/2022 9:20 AM CDT 1,000 mg lbethwxzxrazo-pcqzcmwm-tdtmvsnlh in Lipoderm Given 06/18/2022 10 :23 AM [...] Given 06/16/2022 9:16 AM CDT 150 mg hfhwxtugpi-lloybgjavdvif-dfna 50-325-40 mg Given 06/17 6:03 PM CDT [...] 2057 (Given - Provider: Erwin Tello RBrittonN.) flomrgxkxeoet-oyfxwsvy-vcibskexr in Lipoderm 2%-0.5%-2 % cream 1 g [...] Husain RBrittonN.) 0920 (Given - Provider: Gini Newberyr R.N.)2057 (Given - Provider: Erwin Tello R.N.) [...] RBrittonNBritton) 0515 (Given - Provider: Erwin gimenez R.N.) 100 mg, oral, 3 times daily PRN, cough, Starting on Tue06/16/22 at 0107, Swallow whole. Do NOT crush, chew or open capsule. sxeinfqjxb-jotuqnbarknhr-shiz 50-325-40 mg per tablet 1 tablet (ESGIC) 1359 (Given - Provider: Gini Newberry R.N.)2108 (Given - Provider: Rufina Husain R.N.) 1038 (Given - Provider: Kennedi Cabrera APRN, SOCIAL AND HUMAN SERVICES ASSISTANT, M.S.N.)1803 (Given - Provider: Gini Newberry R.N.) 1 tablet, oral, Every 6 hours PRN, migraine, Starting on 05/29 at 0107 diphenhydrAMINE-zinc acetate 1 % cream 1 application ( BENADRYL) 1431 (Given - Provider: Gini Newberry R.N.) 1 application, topical, 4 times daily HI N, itching, Starting on Tue06/16/22 at 0306 [...] COMPLETED) 1642 (Given - Provider: Sapphire Verma, CUT OFF MAN, DRIVER STARTING GATE, DNAP) 1 patch, transdermal, Administer over 72 [...] as of this encounter Care Teams Manufacturing Recruiter Relationship Specialty Start Date End Date Elsewhere, Pcp PCP - General Family Medicine 12/25/21 documented as of this encounter
--- OUTSIDE RECORDS SUMMARY | 2022-11-08 13:57 | XMS_ITS | Encounter Summary ---
:1965 Author Organization [facility] Address [address] [place] [address] Care Team Providers Name Role Phone Elsewhere, Pcp Primary Care Provider Unavailable Reason for Visit Reason Comments Med Refill Encounter Details Date Type Department Care Team Description 07/19/2022 Refill Division of [facility] Hoda parmar M.D. Med Refill Medicine, [facility], [place] [address] [place] [address] [place], [place] [address] [phone] Social History Tobacco Use Types Packs/Day Years [...] you attend protestant or Patient refused 2021 baptist services? Do [...] of this encounter Care Teams Home Health Travel Ot Relationship Specialty Start Date End Date Elsewhere, Pcp PCP - General Family Medicine 12/25/21 documented as of this encounter
--- OUTSIDE RECORDS SUMMARY | 2022-11-08 13:57 | XMS_ITS | Encounter Summary ---
:1965 Author Organization [facility] Address 200 [place] [address] Care Team Providers Name Role Phone Elsewhere, Pcp Primary Care Provider Unavailable Reason for Referral Outpatient (Routine) - Closed Specialty Diagnoses / Procedures Referred By Contact Refer red To Contact Diagnoses Aftercare Total Shoulder Arthroplasty Flavia Broderick M.D. [facility] Procedures DX Shoulder Left 2+ Views Referral ID Status Reason Start Date Expiration Date Visits Requ ested Visits Authorized [id number] Closed 06/23/2022 06/23/2023 1 1 Reason for Visit Outpatient (Routine) - Closed Specialty Diagnoses / Procedures Referred By Contact Refer red To Contact Diagnoses Aftercare Total Shoulder Arthroplasty Flavia Broderick M.D. [facility] Procedures DX Shoulder Left 2+ Views Referral ID Status Reason Start Date Expiration Date Visits Requ ested Visits Authorized [id number] Closed 06/23/2022 06/23/2023 1 1 Encounter Details Date Type Department Care Team Description 06/29/2022 Hospital Encounter Department of Flavia Broderick re Total Radiology, Severiano Porter M.D. Shoulder Arthroplasty Building, in [place], [place] [address] [place] [address] Social History Tobacco Use Types Packs/Day Years [...] you attend shinto or Patient refused 2021 lutheran services? Do [...] THC multivit-min/iron/folic/ Take 1 tablet by 0 bte725 (HAIR, SKIN AND mouth daily. NAILS ADVANCED [...] as of this encounter Care Teams Director Life Sales Relationship Specialty Start Date End Date Elsewhere, Pcp PCP - General Family Medicine 12/25/21 documented as of this encounter
--- OUTSIDE RECORDS SUMMARY | 2022-11-08 13:57 | XMS_ITS | Encounter Summary ---
:1965 Author Organization [facility] Address [address] [place] [address] Care Team Providers Name Role Phone Elsewhere, Pcp Primary Care Provider Unavailable Reason for Visit Reason Comments Pre-visit Intake Encounter Details Date Type Department Care Team Description 06/25/2022 Clinical Communication Visit Review in Pr e-visit Intake [place], [place] [address] [place] [address] Social History Tobacco Use Types [...] documented as of this encounter Care Teams Coat Tailor Relationship Specialty Start Date End Date Elsewhere, Pcp PCP - General Family Medicine 12/25/21 documented as of this encounter
--- OUTSIDE RECORDS SUMMARY | 2022-11-08 13:57 | XMS_ITS | Encounter Summary ---
:1965 Author Organization [facility] Address [address] [place] [address] Care Team Providers Name Role Phone Elsewhere, Pcp Primary Care Provider Unavailable Reason for Referral Outpatient (Routine) - Authorized Specialty Diagnoses / Procedures Referred By Contact Refer red To Contact Diagnoses Pain Shoulder Left Alfredo Herrera O.P.A.-[facility] Procedures DX Shoulder Left 2+ Views 200 [place], [place] [phone] Referral ID Status Reason Start Date Expiration Date Visits V isits Requested Authorized [id number] Authorized 08/09/2022 08/09/2023 1 1 Reason for Visit Reason Comments Return Visit Encounter Details Date Type Department Care Team Description 08/09/2022 Clinical Communication Department of Cyrus Polk Visit Orthopedic Surgery in [place] Sou[place], [place] [address] [place] [address] 200 [place] [phone] Social History Tobacco Use Types Packs/Day Years [...] you attend anabaptism or Patient refused 2021 mosque services? Do you belong to any clubs or No 05/17/2022 organizations such as anabaptism groups, unions, fraEmergent Labs or athletic groups, or school groups? How [...] documented as of this encounter Care Teams Education Site Manager Relationship Specialty Start Date End Date Elsewhere, Pcp PCP - General Family Medicine 12/25/21 documented as of this encounter
--- OUTSIDE RECORDS SUMMARY | 2022-11-08 13:57 | XMS_ITS | Encounter Summary ---
:1965 Author Organization [facility] Address 200 [place] [address] Care Team Providers Name Role Phone Elsewhere, Pcp Primary Care Provider Unavailable Reason for Referral Physical Therapy (Routine) - Authorized Specialty Diagnoses / Procedures Referred By Contact Refer red To Contact Diagnoses Aftercare Total Shoulder Arthroplasty Flavia Broderick M.D. [facility] Procedures PT or OT eval and treat (first available) Referral ID Status Reason Start Date Expiration Date Visits V isits Requested Authorized [id number] Authorized 06/23/2022 06/23/2023 99 99 utpatient (Routine) - Closed Specialty Diagnoses / Procedures Referred By Contact Refer red To Contact Diagnoses Aftercare Total Shoulder Arthroplasty Flavia Broderick M.D. [facility] Procedures DX Shoulder Left 2+ Views Referral ID Status Reason Start Date Expiration Date Visits Requ ested Visits Authorized [id number] Closed 06/23/2022 06/23/2023 1 1 Reason for Visit Reason Comments Post-op Encounter Details Date Type Department Care Team Description 06/23/2022 Clinical Communication Department of Cyrus Polk st-op Orthopedic Surgery in [place], [place] 200 [facility] 200 [place] [phone] [phone] Social History Tobacco Use Types Packs/Day Years [...] you attend gnosticism or Patient refused 2021 druze services? Do [...] as of this encounter Care Teams Human Insights Lead Ads Marketing Relationship Specialty Start Date End Date Elsewhere, Pcp PCP - General Family Medicine 12/25/21 documented as of this encounter
--- OUTSIDE RECORDS SUMMARY | 2022-11-08 13:58 | XMS_ITS | Encounter Summary ---
:1965 Author Organization [facility] Address [address] [place] [address] Care Team Providers Name Role Phone Elsewhere, Pcp Primary Care Provider Unavailable Encounter Details Date Type Department Care Team Description 06/15/2022 Ancillary Procedure Department of Demarcus Ernst, Radiology in [place], [place] [address] [place] [phone] (Wo rk) Social History Tobacco Use Types [...] you attend yarsanism or Patient refused 2021 spiritism services? Do [...] Modality Spine, Neuroradiology RST LOS, Neuroradiology [facility] [...] documented as of this encounter Care Teams Telesales Advisor Relationship Specialty Start Date End Date Elsewhere, Pcp PCP - General Family Medicine 12/25/21 documented as of this encounter
--- OUTSIDE RECORDS SUMMARY | 2022-11-08 13:58 | XMS_ITS | Encounter Summary ---
:1965 Author Organization [facility] Address [address] [place] [address] Care Team Providers Name Role Phone Elsewhere, Pcp Primary Care Provider Unavailable Reason for Visit Reason Comments Scooter prescription Encounter Details Date Type Department Care Team Description 05/19/2022 Clinical Communication Department of Robert Diehl prescription Neurology in [place], [facility] [address] [place], [place] [address] [place] [address] [place], [place] [phone] (Work) [phone] Social History Tobacco Use Types Packs/Day Years [...] you attend baptism or Patient refused 2021 islam services? Do [...] yesterday and is currently still admitted to [facility] until tomorrow. I encouraged her to reach [...] Stroke Cerebrovascular Accident Personal History Olivia Pedroza Road Boss 05/19/22 11:51 AM CDT documented in this encounter Plan of Treatment Not on filedocumented as of this encounter Visit Diagnoses Not on filedocumented in this encounter Additional Health Concerns Assessment Noted Time PHQ-9 Depression Total Score: 16 02/11/2021 12:00 AM C DT documented as of this encounter Care Teams Director Cardiovascular Relationship Specialty Start Date End Date Elsewhere, Pcp PCP - General Family Medicine 12/25/21 documented as of this encounter
--- OUTSIDE RECORDS SUMMARY | 2022-11-08 13:58 | XMS_ITS | Encounter Summary ---
:1965 Author Organization [facility] Address [address] [place] [address] Care Team Providers Name Role Phone Elsewhere, Pcp Primary Care Provider Unavailable Reason for Visit Reason Comments xray results Encounter Details Date Type Department Care Team Description 06/10/2022 Clinical Communication Department of Cyrus Polk ay results Orthopedic Surgery in [place], [place] [address] [place] [address] 200 [place] [phone] Social History Tobacco Use Types Packs/Day Years [...] you attend quaker or Patient refused 2021 hinduism services? Do [...] Cyrus Polk M.D. CT CT Job ID: [id number] documented in this encounter Miscellaneous Notes Telephone [...] as of this encounter Care Teams Quality Assurance/R&D Lab Technician Relationship Specialty Start Date End Date Elsewhere, Pcp PCP - General Family Medicine 12/25/21 documented as of this encounter
--- OUTSIDE RECORDS SUMMARY | 2022-11-08 13:58 | XMS_ITS | Encounter Summary ---
:1965 Author Organization [facility] Address [address] [place] [address] Care Team Providers Name Role Phone Elsewhere, Pcp Primary Care Provider Unavailable Encounter Details Date Type Department Care Team Description 06/17/2022 Anesthesia Event Department of Radiology, Shantell Verma APRN, HARNESS BRUSHER, DNAP [address] [place] [phone] [facility] [address] [place] [phone] [place], [place] [address] [place] [address] Anesthesia Record Procedure Summary Procedure Name Responsible Anesthesia Start Anesthesia Stop Time Anesthesiologist Time MR BRAIN WITHOUT IV Sapphire Verma APRN, HARNESS BRUSHER, 06/17/22 1446 1702 CONTRAST DNAP Events Date [...] over 3 days 1 patch (TRANSDERM S HOME SUPERVISOR) 1 patch Lactated Ringers Free Drip 850 [...] you attend rastafari or Patient refused 2021 denominational services? Do [...] Notes Anesthesia Postprocedure Evaluation - Maritza Friend, MILKING SYSTEM INSTALLER, HARNESS BRUSHER, DNAP - 06/17/2022 5:09 PM CDT Patient: Angie Mosquera Procedure Summary Date: 06/17/22 Room / Location: Department of Radiology, [facility], in [place], [place] Anesthesia Start: 1446 Anesthesia Stop: 170 [...] ETT location: oral VL device: glide scope Tingley scope blade size: 3 Adult tube size: [...] r/o compression Location: Department of Radiology, [facility], in [place], [place] Pertinent components of the patient's history [...] Vertebral Artery (HCC) (+) Dissection Vertebral Artery ([facility]) (+) Transient Ischemic Attack MSK/RHEUM [...] with patient /legal guardian or through an sign language interpreter. Risks/Benefits/Alternatives of Blood transfusion [...] ETT location: oral VL device: glide scope Tingley scope blade size: 3 Adult tube size: [...] ?? Airway event: no complications Sapphire Luci MILKING SYSTEM INSTALLER, HARNESS BRUSHER, DNAP ANESTHESIA ORDERABLES documented in this encounter [...] as of this encounter Care Teams Surveillance Director Relationship Specialty Start Date End Date Elsewhere, Pcp PCP - General Family Medicine 12/25/21 documented as of this encounter
--- OUTSIDE RECORDS SUMMARY | 2022-11-08 13:58 | XMS_ITS | Encounter Summary ---
:1965 Author Organization [facility] Address [address] [place] [address] Care Team Providers Name Role Phone Elsewhere, Pcp Primary Care Provider Unavailable Encounter Details Date Type Department Care Team Description 05/18/2022 Ancillary Procedure Department of Anesthesiology, [place] Social History Tobacco Use Types Packs/Day Years [...] you attend yazdanism or Patient refused 2021 worship services? Do [...] as of this encounter Care Teams Supervisor Bit And Shank Department Relationship Specialty Start Date End Date Elsewhere, Pcp PCP - General Family Medicine 12/25/21 documented as of this encounter
--- OUTSIDE RECORDS SUMMARY | 2022-11-08 13:58 | XMS_ITS | Encounter Summary ---
:1965 Author Organization [facility] Address [address] [place] [address] Care Team Providers Name Role Phone Elsewhere, Pcp Primary Care Provider Unavailable Reason for Visit Reason Comments Followup [facility] Patient Encounter Details Date Type Department Care Team Description 06/15/2022 Clinical Communication Department of [facility], Robert gay ([facility] Neurology in [place], MBrittonDBritton Patient/) [place], [facility] [place], [place] [address] [place] [address] [place], [place] [phone] (Work) [phone] Social History Tobacco Use Types Packs/Day Years [...] you attend jainism or Patient refused 2021 protestant services? Do [...] She did end up being seeing in [place] and had a CT scan. I told her to followup with them and make sure that the images are sent here for Dr. Diehl to review. Caller was made aware of the two- to four-business day call turnaround time. Date last seen: 11/17/2021 Future appointment: None scheduled Dx: Stroke Cerebrovascular Accident Personal History Allyssa Amaya, Fiberglass Machine Operator 06/15/22 8:18 AM CDT documented in this encounter Plan of Treatment Not on filedocumented as of this encounter Visit Diagnoses Not on filedocumented in this encounter Additional Health Concerns Assessment Noted Time PHQ-9 Depression Total Score: 16 02/11/2021 12:00 AM C DT documented as of this encounter Care Teams Stereotyper Apprentice Relationship Specialty Start Date End Date Elsewhere, Pcp PCP - General Family Medicine 12/25/21 documented as of this encounter
--- OUTSIDE RECORDS SUMMARY | 2022-11-08 13:58 | XMS_ITS | Encounter Summary ---
:1965 Author Organization [facility] Address [address] [place] [address] Care Team Providers Name Role Phone Elsewhere, Pcp Primary Care Provider Unavailable Encounter Details Date Type Department Care Team Description 06/15/2022 Ancillary Procedure Department of Demarcus Ernst, Radiology in [place], [place] [address] [place] [id number] (Wo rk) Social History Tobacco Use Types [...] you attend gnosticist or Patient refused 2021 confucianist services? Do [...] Modality Spine, Neuroradiology RST LOS, Neuroradiology [facility], N/A Computed Tomography Neuroradiology FLA LOS, [...] as of this encounter Care Teams Top Executive Relationship Specialty Start Date End Date Elsewhere, Pcp PCP - General Family Medicine 12/25/21 documented as of this encounter
--- OUTSIDE RECORDS SUMMARY | 2022-11-08 13:58 | XMS_ITS | Encounter Summary ---
:1965 Author Organization [facility] Address [address] [place] [address] Care Team Providers Name Role Phone Elsewhere, Pcp Primary Care Provider Unavailable Encounter Details Date Type Department Care Team Description 05/18/2022 Surgery RST SEBAS MORAN OR Cyrus Polk, ARTHROPLASTY REPLACEMENT [address] [facility] [place] [address] 200 [facility] [phone] [place] [address] Social History Tobacco Use Types Packs/Day Years [...] or the highest technical, or vocational p [employer] degree you have received? Sex Assigned at [...] AM CDT DISCHARGE SUMMARY BRIEF OVERVIEW Hospital: [facility] Discharge Provider: Cyrus Polk M.D. [...] RST ROEI OR DISCHARGE DISPOSITION Home-Health Care [facility] [6] ACTIVE ISSUES REQUIRING FOLLOW UP This document serves as a prescription to continue physical therapy, medications, and labs or x-raysif ordered/required. If you have any questions or concerns about surgery or upcoming appointments, please do not hesitateto contact Dr. Polk's office at [phone] during regular business hours (8am-5pm M-F). For emergencies on the weekend or after hours, you may contact Dr. Polk's service via the [facility] wink cutter operator at [phone]. Details for your 6 week follow-up appointment [...] Cyrus Polk MD Dept of Orthopedics [address], [address] None OUTPATIENT FOLLOW UP For appointment details [...] Cyrus Polk M.D.Jenna Zaldivar M.D.Kaushik Cadena M.D. [facility] Angie Mosquera was taken to the [...] THC multivit-min/iron/folic/ Take 1 tablet by 0 [id number] (HAIR, SKIN AND mouth daily. NAILS ADVANCED [...] mask during therapy session: yes Outcome Measures [facility] Inpatient Short Form: -[facility] Basic Mobility (V.2) How much help [...] 3-5 steps with a railing?: A Little AM-[facility] Basic Mobility (V.2) Raw Score: 18 AM-[facility] Basic Mobility (V.2) Standardized Score: 41.05 [...] Time (min): 27 min Jey Harper P.T., Juice.P.TBritton Kaushik Cadena M.D. - 05/20/2022 7:31 AM [...] 6 pm, please page Jam service at [phone] For urgent matters from 6 pm until 6 am, please page Ortho House at [facility] [phone] Jane Nguyen Pharm.D., R.Ph. - 05/19/2022 8:12 [...] at this time. Jane Nguyen Pharm.D., R.Ph. [phone] Kaushik Cadena M.D. - 05/19/2022 7:34 AM [...] 6 pm, please page Jam service at [phone] For urgent matters from 6 pm until 6 am, please page Ortho [place] at [facility] [phone] aco Dao - 05/18/2022 9:47 AM CDT Encounter: AM Admit Deanna Tradition: No scientologist affiliation. Ms. Mosquera did not express any spiritual needs at this time. Plan: Will remain available for spiritual care as needed or requested. Chaplains can be contacted bypaging [phone] ([facility]). Rodrigo Preston, Pharm.D., R.Ph. - [...] Take 150 mg by mouth every morning. ilnpkdwtat-jsiaamlggavnj-fwyo (ESGIC) 50-325-40 mg per tablet Past Week [...] 1 spray as needed. 5 mg THC multivit-min/iron/folic/iec738 (HAIR, SKIN AND NAILS ADVANCED ORAL) Past [...] ??? Nicotine Dependence Unspecified ??? 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 Direct Infection Of [...] Profile Lives With: Alone Receives Help From: guest room attendant, Family, Friend(s) ADL Assistance: Required assistance ADL Assistance Comments: Gets help from DYE MAKER for her bath/shower 3x/week, and for her meals IADL/Homemaking Assistance: Required assistance IADL/Homemaking Assistance Comments: Gets help for housecleaning Driving: Does not drive Driving Comments: takes her cane and medical alert with her. Occupational Role: On disability Occupational Role Comments: Previously worked at a [employer] and [employer] Prior Mobility/Functional Transfers Level of Williams: Needs assistance Previous Transfer/Mobility Assistance Comments: Patient [...] mask during therapy session: yes Outcome Measures AM-[facility] Inpatient Short Form: AM-[facility] Basic Mobility (V.2) How much help [...] 3-5 steps with a railing?: A Little AM-[facility] Basic Mobility (V.2) Raw Score: 18 -[facility] Basic Mobility (V.2) Standardized Score: 41.05 Interpretation: Clinicians answer the -[facility] Inpatient Short Form based on observed [...] Referral Reason: Discharge Planning Primary Language: Setswana Alteration Specialist Services Used: No Person(s) present during interview: Person(s) Present During Interview: patient History of Present Illness #1 Primary Osteoarthritis Shoulder Left Social History Support System: children, patient case manager/social work administrator, friends/neighbors and home care staff Patient's Home [...] Eyeglasses Services/Resources: Other (comment) Agency Name: [facility] Services Provided: DYE MAKER services 3x/week, nurse visits every other week Baseline Services/Resources [facility] Phone: Fax: Anticipated Needs Functional Status: Transfer to/from bed, chair, etc., Bathing, Dressing, Grooming/hygeine, Housekeeping, Shopping, Meal preparation, Mobility, Medication set-up/administration, Transportation use (drive car, use taxi/bus) Services/Resources: Other (comment) Agency Name: [facility] Provided: DYE MAKER services 3x/week, nurse visits every other week Transportation Needs: Support from family Does the patient need discharge transport arranged?: No Ride and Caregiver Arranged: Yes Anticipated Discharge Destination: Home-Health Care [facility] ASSESSMENT / PLAN Assessment: The music adapter met with Angie Mosquera to discuss her current hospitalization and home goingneeds. The patient was unaccompanied. The patient was a reliable historian. The role of music adapter was reviewed. The patient reviewed her prior level of care and support system. The patient receives support from her son, friends and home care staff. Patient reported her son lives in the same apartment as her. She also stated getting DYE MAKER services 3x/week and a nurse visits her every other week. The patient described her living environment as a two bedroom apartment. Housekeeping, grocery shopping, meal prep, and other household responsibilities have previously been completed by patient, patient's son and patient's caregiver(s). music adapter discussed the patient's potential needs at [facility] based on their home setting, previous needs and responsibilities, homebound status, and relevantassessments with the patient. The patient will be safe and supported to return home with [facility] or previous services noted above when medically ready. Support will be provided by son, friends and home care staff. The patient demonstrated understanding when discussing her home going plans and anticipated needs. At this time, the care team anticipates the patient requires the following service(s) to be reconnected: home healthcare. The patient identified the following as their current vendor(s): [facility]. During this visit patient verbalized she is hoping to increase her DYE MAKER hours and also inq uired about getting a scooter to assist in her mobility. Patient went on to share she is unstable attimes due to her stroke history. She thought perhaps her neurology doctor would be able to help her get a scooter. RADHA DONAHUE recommended she follow up with the [facility] in regards to wanting more DYE MAKER hours. She was also recommended to follow up with her primary care provider to provide durable medical equipment justification for a scooter, as she is currently hospitalized for orthopedic surgery. Patient verbalized understanding. Patient informed RADHA DONAHUE would be reconnecting her DYE MAKER services and nurse visits with [facility]. Patient agreeable to RN ROWAN completing this and even provided RN CM the name and contact of her DYE MAKER and RN. After reviewing the patient's chart and meeting with the patient, the music adapter deemed the LACE+/readmission questions were not necessary. The patient reports understanding that she will dismiss from the hospital when medically stable. Pending hospital course and medical readiness, no barriers to dismissal have been identified at this time. Plan: Patient to discharge with home health care. [facility] Contact: RADHA Palomino ATTN: Georgette NURSING: [...] directive. PRIMARY SERVICE: - Please provide a non-[place] home health order for resumption of previous [...] dismissal will be provided by family. 3. music adapter recommended reaching out to family, friends, and neighbors for assistance. 4. music adapter provided information regarding the dismissal process. 5. music adapter placed or requested the following hospital-based consult orders and/or referrals:None. 6. music adapter will continue to assess for homegoing needs with the interdisciplinary team. 7. music adapter encouraged the patient to reach out with [...] falls. Patient will discharge to home with [facility] reconnect. Identify possible barriers to meeting goals/advancing plan of care: none End of Shift Summary: Patient stayed on schedule with prn pain meds (Tramadol and oxycodone) throughout the shift. Encouraged using ice packs to help with pain and swelling. Patient's primapore dressing was changed to Aquacell AG and is clean, dry and intact. 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 Patient expects RN from [facility] to visit on Tuesday, May 24. Patient's friend will transport home. Medications including: oxycodone and tramadol were picked up [facility]. documented in this encounter OR Notes Op Note - Cyrus Plok M.D. - 05/18/2022 5:54 PM CDT STAFF: Cyrus Polk M.D. RESIDENT: Jenna Zaldivar M.D. PRE-OPERATIVE DIAGNOSIS Left dislocated reverse arthroplasty. POST-OPERATIVE DIAGNOSIS Left dislocated reverse arthroplasty. A post production assistant actively participated and was necessary for [...] glenosphere, placement new humeral stem and tray, [id number] Cyrus Polk M.D. CT CT Job ID: [id number] documented in this encounter Miscellaneous Notes Hospital Course - Kaushik Cadena M.D. - 05/19/2022 12:18 PM CDT Surgery Information This Encounter Past Procedures (05/19/2021 to Today) Date Procedures Providers Location 05/18/2022 ARTHROPLASTY REPLACEMENT TOTAL SHOULDER. Cyrus Polk M.D.Wasserburger, Jory N, M.D.Markos, James R, M.D. [facility] OR Angie Mosquera was taken to [...] with Differential, Blood (05/20/2022 3:43 AM CDT) [facility] Method Time Signature Hemoglobin 8.4 (L) 11.6 [...] [facility] - [address] [place], [place] [address] [facility] [place] [address] [facility] [address] [facility] (ABNORMAL) CBC with Differential, Blood (05/19/2022 3:26 AM CDT) [facility] Method Time Signature Hemoglobin 7.6 (L) 11.6 [...] [facility] - [address] [place], [place] [address] [facility] [place] [address] [facility] [address] (ABNORMAL) Basic Metabolic [...] 05/19/2022 DTL Black/ mL/min/BSA 4:38 AM CDT Marshallese Comment: ----ADDITIONAL INFORMATION---- Estimated GFR calculated using [...] [facility] [address] [place], [place] [address] [facility] [place] [address] [facility] [address] DX [...] postoperative purposes. Jenna NIELSON DIAGNOSTIC IMAGING PROCE [facility] Surgical Pathology, Frozen Lab (05/18/2022 1:04 PM CDT) Component Value Ref Test Analysis Performed At [facility] Method Time Signature 05/20/2022 METH [...] [facility] - [address] [place], [place] [address] [facility] [place] [address] [facility] [address] Bacteria Cult, Aerobe / Anaerobe+Susc (05/18/2022 1:03 PM CDT) [facility] gist Method Time Signature Bacteria Cult, No growth 06/01/2022 DTL Aerobe/Anaerob after 14 6:02 PM CDT e+Susc days of incubation. Specimen Anatomical Collection Method Collection Time Receive d Time (Source) Location / / Volume Laterality Shoulder, Left 05/18/2022 1:03 PM 022 5:21 CDT PM CDT Comment: Specimen Source Site: Tissue #[address] [facility] - [facility] - 06/01/2022 6:02 PM CDT Bacterial Culture: Placed in Bactec aero bic and Bactec anaerobic bottles Cyrus Polk M.D. LAB MICROBIOLOGY - GENERAL O RDERABLES Performing Organization Address City/[facility]/ZIP [facility] Phon e Number [facility] - [address] [place], [place] [address] [facility] [place] [address] [facility] [address] [facility] Bacteria Cult, Aerobe / Anaerobe+Susc (05/18/2022 1:03 PM CDT) [facility] Method Time Signature Bacteria Cult, No growth 06/01/2022 DTL Aerobe/Anaerob after 14 6:02 PM CDT e+Susc days of incubation. Specimen Anatomical Collection Method Collection Time Receive d Time (Source) Location / / Volume Laterality Shoulder, Left 05/18/2022 1:03 PM 022 5:12 CDT PM CDT Comment: Specimen Source Site: Tissue #3 Narrative [facility] - 06/01/2022 6:02 PM CDT Bacterial Culture: Placed in Bactec aero bic and Bactec anaerobic bottles Cyrus Polk M.D. LAB MICROBIOLOGY - GENERAL O RDERABLES Performing Organization Address City/[facility]/ZIP Code Phon e Number [facility] - [address] [place], [place] [address] [place] [address] [facility] [address] [facility] Bacteria Cult, Aerobe / Anaerobe+Susc (05/18/2022 1:03 PM CDT) [facility] Method Time Signature Bacteria Cult, No growth 06/01/2022 DTL Aerobe/Anaerob after 14 6:02 PM CDT e+Susc days of incubation. Specimen Anatomical Collection Method Collection Time Receive d Time (Source) Location / / Volume Laterality Shoulder, Left 05/18/2022 1:03 PM 022 5:07 CDT PM CDT Comment: Specimen Source Site: Tissue #2 Narrative [facility] - 06/01/2022 6:02 PM CDT Bacterial Culture: Placed in Bactec aero bic and Bactec anaerobic bottles Cyrus Polk M.D. LAB MICROBIOLOGY - GENERAL O RDERABLES Performing Organization Address City/[facility]/ZIP Code Phon e Number [facility] - [address] [place], [place] [address] [facility] [place] [address] [facility] [address] documented in [...] 05/19/2022 05/20/2022 acetaminophen tablet 1,000 mg (TYLENOL) 8879 (Given - Provider: Corrie Toscano RBrittonN.)5001 (Given - Provider: Catalina Mccloud RBrittonN.) 0511 [...] 1240 (Given - Provider: Ihsan Townsend APRN, SECRETARY BOOKKEEPER) 2,000 mg (rounded from 1,652.5 mg = [...] (PROTONIX) (CANCELED) 611 (Given - Provider: Catalina Mclcoud R.N.) 40 mg, oral, Daily before breakfast, [...] 1240 (Given - Provider: Ihsan Townsend APRN, SECRETARY BOOKKEEPER) 1,000 mg (1 g), intravenous, at 300 [...] 2 hour IN N, indigestion, Starting on Tue05/18/22 at 1608, [...] over 3 days 1 patch (TRANSDERM S OYSTER SHUCKER) (CANCELED) 1118 (Medication Applied - Provider: Cristy [...] documented as of this encounter Care Teams Parts And Service Manager Relationship Specialty Start Date End Date Elsewhere, Pcp PCP - General Family Medicine 12/25/21 documented as of this encounter
--- OUTSIDE RECORDS SUMMARY | 2022-11-08 13:58 | XMS_ITS | Encounter Summary ---
:1965 Author Organization [facility] Address [address] [place] [address] Care Team Providers Name Role Phone Elsewhere, Pcp Primary Care Provider Unavailable Encounter Details Date Type Department Care Team Description 06/17/2022 Orders Only RST HIM Latrice, Chronic Pain Syndrome (Prima ry Dx); [address] [facility] Lilian Hughes Transient Ischemic Attack; [place], [place] [address] [facility] Fibromyalgia [address] [place] [address] Social History Tobacco Use Types Packs/Day Years [...] documented as of this encounter Care Teams Bias Machine Operator Helper Relationship Specialty Start Date End Date Elsewhere, Pcp PCP - General Family Medicine 12/25/21 documented as of this encounter
--- OUTSIDE RECORDS SUMMARY | 2022-11-08 13:58 | XMS_ITS | Encounter Summary ---
:1965 Author Organization [facility] Address [address] [place] [address] Care Team Providers Name Role Phone Elsewhere, Pcp Primary Care Provider Unavailable Reason for Visit Reason Comments Post-op Problem Encounter Details Date Type Department Care Team Description 06/03/2022 Clinical Communication Department of Cyrus Polk st-op Problem Orthopedic Surgery in Lilian Souza [place], [place] [address] [place] [address] [address] [place] [phone] Social History Tobacco Use Types Packs/Day Years [...] you attend yarsanism or Patient refused 2021 mandaeism services? Do [...] Cyrus Polk M.D. CT CT Job ID: [id number] documented in this encounter Miscellaneous Notes Telephone [...] bent forward again. Please call her at [phone] to discuss. documented in this encounter Plan of Treatment Not on filedocumented as of this encounter Visit Diagnoses Not on filedocumented in this encounter Additional Health Concerns Assessment Noted Time PHQ-9 Depression Total Score: 16 02/11/2021 12:00 AM C DT documented as of this encounter Care Teams Hydraulic Lift Operator Relationship Specialty Start Date End Date Elsewhere, Pcp PCP - General Family Medicine 12/25/21 documented as of this encounter
--- OUTSIDE RECORDS SUMMARY | 2022-11-08 13:58 | XMS_ITS | Encounter Summary ---
:1965 Author Organization [facility] Address [address] [place] [address] Care Team Providers Name Role Phone Elsewhere, Pcp Primary Care Provider Unavailable Encounter Details Date Type Department Care Team Description 05/18/2022 - Hospital Encounter [facility] Jam Direct In fection Of Left Shoulder In Infectious And Parasitic Diseases Classified Elsewhere (HCC) (Primary Dx); 05/20/2022 Hospital, Yarsanililiam Souza M.D. Shoulder Joint Disorder Left; [place], [facility] [address] [facility] Pain Shoulder Left; Building, [place], [place] Primary Os teoarthritis Shoulder Left Floor [address] [address] [facility] [phone] [place], [place] (Work) [address] Social History Tobacco Use [...] you attend hinduism or Patient refused 2021 mormon services? Do [...] AM CDT DISCHARGE SUMMARY BRIEF OVERVIEW Hospital: [facility] Discharge Provider: Cyrus Polk M.D. Primary [...] RST ROEI OR DISCHARGE DISPOSITION Home-Health Care [facility] [6] ACTIVE ISSUES REQUIRING FOLLOW UP This document serves as a prescription to continue physical therapy, medications, and labs or x-raysif ordered/required. If you have any questions or concerns about surgery or upcoming appointments, please do not hesitateto contact Dr. Polk's office at [phone] during regular business hours (8am-5pm M-F). For emergencies on the weekend or after hours, you may contact Dr. Polk's service via the [facility] scrubbing machine operator at [phone]. Details for your 6 week follow-up appointment [...] to: Cyrus Polk MD Dept of Orthopedics [address], [address] None OUTPATIENT FOLLOW UP For appointment details [...] Polk M.D.Jenna Zaldivar M.D.Markos, James R, M.D. [facility] OR Angie Mosquera was taken [...] THC multivit-min/iron/folic/ Take 1 tablet by 0 [id number] (HAIR, SKIN AND mouth daily. NAILS ADVANCED [...] mask during therapy session: yes Outcome Measures -[facility] Inpatient Short Form: AM-EAST [...] 6 am until 6 pm, please page [facility] at [phone] For urgent matters from 6 pm until 6 am, please page [facility] [phone] Jane Nguyen Pharm.D., R.Ph. - 05/19/2022 8:12 [...] at this time. Jane Nguyen Pharm.D., R.Ph. [phone] Kaushik Cadena M.D. - 05/19/2022 7:34 AM [...] 6 pm, please page Jam service at [phone] For urgent matters from 6 pm until 6 am, please page [facility] [phone] Paco Valentine - 05/18/2022 9:47 AM CDT Encounter: AM Admit Deanna Tradition: No mormon affiliation. Ms. Mosquera did not express any spiritual needs at this time. Plan: Will remain available for spiritual care as needed or requested. [facility]pl[facility] [phone] ([facility]). Rodrigo Preston, Pharm.D., R.Ph. - 05/18/2022 [...] Take 150 mg by mouth every morning. beaxdmykru-mnthhlkvuurqy-ybwb (ESGIC) 50-325-40 mg per tablet Past Week [...] 1 spray as needed. 5 mg THC multivit-min/iron/folic/dli423 (HAIR, SKIN AND NAILS ADVANCED ORAL) Past [...] Profile Lives With: Alone Receives Help From: driveway attendant, Family, Friend(s) ADL Assistance: Required assistance ADL Assistance Comments: Gets help from STOCK HOLDER for her bath/shower 3x/week, and for her meals IADL/Homemaking Assistance: Required assistance IADL/Homemaking Assistance Comments: Gets help for housecleaning Driving: Does not drive Driving Comments: takes her cane and medical alert with her. Occupational Role: On disability Occupational Role Comments: Previously worked at a [employer] 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, friends/neighbors and home care staff Patient's Home [...] wall, Eyeglasses Services/Resources: Other (comment) Agency [facility] Services Provided: STOCK HOLDER services 3x/week, nurse visits every other week Baseline Services/Resources Primary care clinic and provider: [place], [facility] Phone: Fax: Anticipated Needs Functional Status: Transfer to/from bed, chair, etc., Bathing, Dressing, Grooming/hygeine, Housekeeping, Shopping, Meal preparation, Mobility, Medication set-up/administration, Transportation use (drive car, use taxi/bus) Services/Resources: Other (comment) Agency Name: [facility] Services Provided: STOCK HOLDER services 3x/week, nurse visits every other week Transportation Needs: Support from family Does the patient need discharge transport arranged?: No Ride and Caregiver Arranged: Yes Anticipated Discharge Destination: Home-Health Care [facility] ASSESSMENT / PLAN Assessment: The bottler helper met with Angie Mosquera to discuss her current hospitalization and home goingneeds. The patient was unaccompanied. The patient was a reliable historian. The role of bottler helper was reviewed. The patient reviewed her prior level of care and support system. The patient receives support from her son, friends and home care staff. Patient reported her son lives in the same apartment as her. She also stated getting STOCK HOLDER services 3x/week and a nurse visits her every other week. The patient described her living environment as a two bedroom apartment. Housekeeping, grocery shopping, meal prep, and other household responsibilities have previously been completed by patient, patient's son and patient's caregiver(s). bottler helper discussed the patient's potential needs at [facility] based on their home setting, [...] identified the following as their current vendor(s): [facility]. During this visit patient verbalized she is hoping to increase her STOCK HOLDER hours and also inq uired about getting a scooter to assist in her mobility. Patient went on to share she is unstable attimes due to her stroke history. She thought perhaps her neurology doctor would be able to help her get a scooter. RN CM recommended she follow up with the count includes the [facility] in regards to wanting more STOCK HOLDER hours. She was also recommended to follow up with her primary care provider to provide durable medical equipment justification for a scooter, as she is currently hospitalized for orthopedic surgery. Patient verbalized understanding. Patient informed RN CM would be reconnecting her STOCK HOLDER services and nurse visits with [facility]. Patient agreeable to RN CM completing this and even provided RN CM the name and contact of her STOCK HOLDER and RN. After reviewing the patient's chart and meeting with the patient, the bottler helper deemed the LACE+/readmission questions were not necessary. The patient reports understanding that she will dismiss from the hospital when medically stable. Pending hospital course and medical readiness, no barriers to dismissal have been identified at this time. Plan: Patient to discharge with home health care. [facility] Contact: RADHA Palomino ATTN: Georgette NURSING: [...] dismissal will be provided by family. 3. bottler helper recommended reaching out to family, friends, and neighbors for assistance. 4. bottler helper provided information regarding the dismissal process. 5. bottler helper placed or requested the following hospital-based consult orders and/or referrals:None. 6. bottler helper will continue to assess for homegoing needs with the interdisciplinary team. 7. bottler helper encouraged the patient to reach out with [...] and intact. 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 Patient expects RN from [facility] to visit on Tuesday, May 24. Patient's friend will transport home. Medications including: oxycodone and tramadol were picked up [facility]. documented in this encounter OR Notes Op Note - Cyrus Polk M.D. - 05/18/2022 5:54 PM CDT STAFF: Cyrus Polk M.D. RESIDENT: Jenna Zaldivar M.D. PRE-OPERATIVE DIAGNOSIS Left dislocated reverse arthroplasty. POST-OPERATIVE DIAGNOSIS Left dislocated reverse arthroplasty. A health care assistant actively participated and was necessary for [...] glenosphere, placement new humeral stem and tray, [id number] Cyrus Polk M.D. CT CT Job ID: [id number] documented in this encounter Miscellaneous Notes Hospital Course - Kaushik Cadena M.D. - 05/19/2022 12:18 PM CDT Surgery Information This Encounter Past Procedures (05/19/2021 to Today) Date Procedures Providers Location 05/18/2022 ARTHROPLASTY REPLACEMENT TOTAL SHOULDER. Cyrus Polk M.D.Wasserburger, Jory N, M.D.Markos, James R, M.D. [facility] OR Angie Mosquera was [...] with Differential, Blood (05/20/2022 3:43 AM CDT) [facility] Method Time Signature Hemoglobin 8.4 (L) [...] Organization Address City/State/ZIP Code Phon e Number [facility] - [address] [place] [phone] [facility] [place] [address] Laboratories-[facility] 200 [facility] (ABNORMAL) CBC with Differential, Blood (05/19/2022 3:26 AM CDT) [facility] gist Method Time Signature Hemoglobin 7.6 [...] M.D. LAB BLOOD ADD-ON Performing Organization Address City/State/[facility] Code Phon e Number [facility] - [address] [place] [phone] [facility] [address] [facility] 200 [facility] (ABNORMAL) Basic Metabolic Panel (05/19/2022 3:26 AM [...] 05/19/2022 DTL Black/ mL/min/BSA 4:38 AM CDT Burmese Comment: ----ADDITIONAL INFORMATION---- Estimated GFR calculated using [...] Organization Address City/State/ZIP Code Phon e Number [facility] - [address] [place], [place] [address] [facility] [address] [facility] [address] DX Shoulder Left [...] Jenna Zaldivar M.D. IMG DIAGNOSTIC IMAGING PROCE [facility] Surgical Pathology, Frozen Lab (05/18/2022 1:04 PM CDT) Component Value Ref Test Analysis Performed At [facility] Method Time Signature 05/20/2022 METH 11:46 [...] e Number [facility] - [address] [place] [phone] [facility] [place] [address] [facility] [address] [facility] Bacteria Cult, Aerobe / Anaerobe+Susc (05/18/2022 1:03 PM CDT) [facility] gist Method Time Signature Bacteria Cult, No growth 06/01/2022 DTL Aerobe/Anaerob after 14 6:02 PM CDT e+Susc days of incubation. Specimen Anatomical Collection Method Collection Time Receive d Time (Source) Location / / Volume Laterality Shoulder, Left 05/18/2022 1:03 PM 022 5:21 CDT PM CDT Comment: Specimen Source Site: Tissue #1 Narrative [facility] - 06/01/2022 6:02 PM CDT Bacterial Culture: Placed in Bactec aero bic and Bactec anaerobic bottles Cyrus Polk M.D. LAB MICROBIOLOGY - GENERAL O MARY Performing Organization Address [facility] Phon e Number [facility] - [address] [place], [place] [address] [facility] [place] [address] [facility] 200 [facility] Bacteria Cult, Aerobe / Anaerobe+Susc (05/18/2022 1:03 PM CDT) [facility] Method Time Signature Bacteria Cult, No growth 06/01/2022 DTL Aerobe/Anaerob after 14 6:02 PM CDT e+Susc days of incubation. Specimen Anatomical Collection Method Collection Time Receive d Time (Source) Location / / Volume Laterality Shoulder, Left 05/18/2022 1:03 PM 022 5:12 CDT PM CDT Comment: Specimen Source Site: Tissue #3 Narrative [facility] - 06/01/2022 6:02 PM CDT Bacterial Culture: Placed in Bactec aero bic and Bactec anaerobic bottles Cyrus Polk M.D. LAB MICROBIOLOGY - GENERAL Lebron HERNANDEZ Performing Organization Address City/[facility] Phon e Number [facility] - [address] [place], [place] [address] [place] [address] [facility] [address] [facility] Bacteria Cult, Aerobe / Anaerobe+Susc (05/18/2022 1:03 PM CDT) [facility] Method Time Signature Bacteria Cult, No growth 06/01/2022 DTL Aerobe/Anaerob after 14 6:02 PM CDT e+Susc days of incubation. Specimen Anatomical Collection Method Collection Time Receive d Time (Source) Location / / Volume Laterality Shoulder, Left 05/18/2022 1:03 PM 022 5:07 CDT PM CDT Comment: Specimen Source Site: Tissue #2 Narrative [facility] - 06/01/2022 6:02 PM CDT Bacterial Culture: Placed in Bactec aero bic and Bactec anaerobic bottles Cyrus Polk M.D. LAB MICROBIOLOGY - GENERAL O RDERABLES Performing Organization Address City/State/ZIP Code Phon e Number [facility] - [address] [place], [place] [address] [facility] [place] [address] [facility] [address] documented [...] 1240 (Given - Provider: Ihsan Townsend APRN, BALL ASSEMBLER) 2,000 mg (rounded from 1,652.5 mg = [...] OMPLETED) 1240 (Given - Provider: Ihsan Townsend PIE CRUST MIXER, BALL ASSEMBLER) 1,000 mg (1 g), intravenous, at 300 [...] over 3 days 1 patch (TRANSDERM S INTERNATIONAL TRADE ANALYST) (CANCELED) 1118 (Medication Applied - Provider: [...] R.N.)0732 (See Alternative - Provider: Isaura Vu R.N.)1353 (See Alternative - Provider: Isaura Vu R.N.) [...] as of this encounter Care Teams Manager Code Relationship Specialty Start Date End Date Elsewhere, Pcp PCP - General Family Medicine 12/25/21 documented as of this encounter
--- OUTSIDE RECORDS SUMMARY | 2022-11-08 13:59 | XMS_ITS | Encounter Summary ---
:1965 Author Organization [facility] Address [address] [place] [address] Care Team Providers Name Role Phone Elsewhere, Pcp Primary Care Provider Unavailable Encounter Details Date Type Department Care Team Description 05/18/2022 Anesthesia Event RST [facility] OR Kaushik Carpenter, [address] [facility] [place] [address] [address] [facility] [phone] [place] [address] (Wo rk) Anesthesia Record Procedure Summary Procedure [...] h andoff to the receiving staff during [facility] ch we 1. Identified the patient [...] by Placement Time: 1220 Ihsan Patel APRN, EARTH SCIENCE FACULTY MEMBER Ihsan Townsend APRN, (created via procedure EARTH SCIENCE FACULTY MEMBER documentation); Mask Ventilation: Easy mask; Type: Standard [...] you attend yazidi or Patient refused 2021 episcopal services? Do [...] Procedure Summary Date: 05/18/22 Room / Location: [place] [address] / [facility] in [place], [place] Anesthesia Start: 1214 Anesthesia Stop: 1415 [...] ETT location: oral VL device: glide scope Bisbee scope blade size: 3 Adult tube size: [...] diagnosis: Loose left total shoulder arthroplasty. Location: [place] [address] / [facility] in [place], [place] Providers: Cyrus Polk M.D. 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 The use of blood products not discussed [...] section. ND US GUIDE PLC NDL Routine 05/18/2022 11:24 Resu lts for this AM CDT procedure are i n the results section. ND INJ ANES BRACHIAL Routine 05/18/2022 11:24 Res [...] ETT location: oral VL device: glide scope Bisbee scope blade size: 3 Adult tube size: [...] no complications Kaushik Carlos, ChBrittonBBritton ANESTHESIA ORDERABLES ND INJ ANES BRACHIAL PLEX W GUIDANCE, ND US GUIDE PLC NDL, MC ANE [...] as of this encounter Care Teams Equipment Mechanic Specialist Relationship Specialty Start Date End Date Elsewhere, Pcp PCP - General Family Medicine 12/25/21 documented as of this encounter
--- OUTSIDE RECORDS SUMMARY | 2022-11-08 13:59 | XMS_ITS | Encounter Summary ---
:1965 Author Organization [facility] Address [address] [place] [address] Care Team Providers Name Role Phone Elsewhere, Pcp Primary Care Provider Unavailable Encounter Details Date Type Department Care Team Description 04/14/2022 Hospital Encounter Department of Alfredo Herrera Total Shoulder Replacement Status Post Left; Laboratory Medicine A, O.P.A.-C. Painful Total Joint Arthroplasty Initial (HCC) and Pathology, [address] [place] [address], in [facility] [address] [place] [phone] [place] [address] (Work) [place], [place] [phone] [address] (Fax) [phone] Social History Tobacco Use Types Packs/Day Years [...] you attend scientology or Patient refused 2021 gnosticism services? Do [...] THC multivit-min/iron/folic/ Take 1 tablet by 0 [id number] (HAIR, SKIN AND mouth daily. NAILS ADVANCED [...] - [facility] - [address] [place], [place] [address] [facility] [address] [facility] [address] [facility] (ABNORMAL) CBC without Differential [...] - [facility] - [address] [place], [place] [address] [facility] [place] [address] [facility] [address] documented in this encounter Visit Diagnoses Diagnosis Arthroplasty Total Shoulder Replacement Status Post Left Painful Total Joint Arthroplasty Initial (HCC) documented in this encounter Additional Health Concerns Assessment Noted Time PHQ-9 Depression Total Score: 16 02/11/2021 12:00 AM C DT documented as of this encounter Care Teams Senior Product Development Manager Relationship Specialty Start Date End Date Elsewhere, Pcp PCP - General Family Medicine 12/25/21 documented as of this encounter
--- OUTSIDE RECORDS SUMMARY | 2022-11-08 13:59 | XMS_ITS | Encounter Summary ---
:1965 Author Organization [facility] Address [address] [place] [address] Care Team Providers Name Role Phone Elsewhere, Pcp Primary Care Provider Unavailable Reason for Visit Reason Comments Discharge Planning Discharge Planning Encounter Details Date Type Department Care Team Description 05/06/2022 Clinical Communication Department of Kaushik Portillo Di scharge Planning Orthopedic Surgery R.N. (Discharge in [place] [address] [facility] Planning) [place], [place] [address] [facility] [address] [place], [place] [phone] [address] (Work) [phone] Social History Tobacco Use Types Packs/Day Years [...] you attend worship or Patient refused 2021 jehovah's witness services? [...] home. The role of the caregiver and scoop driver will be filled by the patient's [...] to her history of falling. I encourage Ortho.Traffic Operations Manager to contact this patient, prior to [...] documented as of this encounter Care Teams Meal Temperer Relationship Specialty Start Date End Date Elsewhere, Pcp PCP - General Family Medicine 12/25/21 documented as of this encounter
--- OUTSIDE RECORDS SUMMARY | 2022-11-08 13:59 | XMS_ITS | Encounter Summary ---
:1965 Author Organization [facility] Address [address] [place] [address] Care Team Providers Name Role Phone Elsewhere, Pcp Primary Care Provider Unavailable Encounter Details Date Type Department Care Team Description 05/17/2022 Hospital Encounter Department of Alfredo Herrera Preo perative Exam Laboratory Medicine O.P.A.-C. and Pathology, [place] [address] [place] [address], in [place], [place] [address] [place] [address] [place], [place] (Work) [phone] Social History Tobacco Use [...] you attend moravian or Patient refused 2021 sikhism services? Do [...] THC multivit-min/iron/folic/ Take 1 tablet by 0 [id number] (HAIR, SKIN AND mouth daily. NAILS ADVANCED [...] Reviewed by: Tech 05/17/2022 1:04 PM CDT [facility] Specimen Anatomical Collection Method Collection Time Receive d Time (Source) Location / / Volume Laterality Blood 05/17/2022 10:50 05/17/2022 AM CDT 11:30 AM CDT Alfredo Kamara LAB BLOOD ADD-ON Performing Organization Address City/State/ZIP Code Phon e Number [facility] - [facility][note 3] [address] [place], [place] [address] [place] [address] [facility] [place] [address] Basic Metabolic Panel (05/17/2022 [...] 05/17/2022 DTL Black/ mL/min/BSA 12:[address] [facility] Comment: ----ADDITIONAL INFORMATION---- Estimated [...] e Number [facility] - [address] [place], [place] [address] [facility] [address] [facility] Type and Screen (with reflex Antibody ID) (05/17/2022 10:50 AM CDT) [facility] Method Time Signature ABORh A Neg Not [...] e Number [facility] - [address] [place] [address] [address] [facility] [place] [address] Laboratories-[address] (ABNORMAL) CBC with Differential, Blood (05/17/2022 10:50 AM CDT) [employer] Method Time Signature Hemoglobin 9.2 (L) 11.6 [...] e Number [facility] - [address] [place], [place] [address] [facility] [place] [address] Laboratories-[facility] [address] documented in this encounter Visit Diagnoses Diagnosis Preoperative Exam documented in this encounter Additional Health Concerns Infection Onset Date Last Indicated Resolved Time COVID19 Pending 05/17/2022 05/17/2022 05/17/2022 2:34 PM CDT Assessment Noted Time PHQ-9 Depression Total Score: 16 02/11/2021 12:00 AM C DT documented as of this encounter Care Teams Superintendent Water [employer] Relationship Specialty Start Date End Date Elsewhere, Pcp PCP - General Family Medicine 12/25/21 documented as of this encounter
--- OUTSIDE RECORDS SUMMARY | 2022-11-08 13:59 | XMS_ITS | Encounter Summary ---
:1965 Author Organization [facility] Address [address] [place] [address] Care Team Providers Name Role Phone Elsewhere, Pcp Primary Care Provider Unavailable Encounter Details Date Type Department Care Team Description 05/11/2022 Clinical Communication Department of Cyrus Polk Orthopedic Surgery in [place] Souza [place], [place] 200 [facility] [address] [place] [phone] Social History Tobacco Use Types Packs/Day Years [...] you attend confucianism or Patient refused 2021 anabaptism services? Do [...] as of this encounter Care Teams Paper Box Cutter Relationship Specialty Start Date End Date Elsewhere, Pcp PCP - General Family Medicine 12/25/21 documented as of this encounter
--- OUTSIDE RECORDS SUMMARY | 2022-11-08 13:59 | XMS_ITS | Encounter Summary ---
:1965 Author Organization [facility] Address [address] [place] [address] Care Team Providers Name Role Phone Elsewhere, Pcp Primary Care Provider Unavailable Encounter Details Date Type Department Care Team Description 04/21/2022 Clinical Communication Department of Cyrus Polk Orthopedic Surgery in [place] Souza [place], [place] 200 [facility] 200 [place] [phone] Social History Tobacco Use Types Packs/Day Years [...] something else is going on . Angie [phone] documented in this encounter Plan of Treatment Not on filedocumented as of this encounter Visit Diagnoses Not on filedocumented in this encounter Additional Health Concerns Assessment Noted Time PHQ-9 Depression Total Score: 16 02/11/2021 12:00 AM C DT documented as of this encounter Care Teams Box Puller Relationship Specialty Start Date End Date Elsewhere, Pcp PCP - General Family Medicine 12/25/21 documented as of this encounter
--- OUTSIDE RECORDS SUMMARY | 2022-11-08 13:59 | XMS_ITS | Encounter Summary ---
:1965 Author Organization [facility] Address [address] [place] [address] Care Team Providers Name Role Phone Elsewhere, Pcp Primary Care Provider Unavailable Encounter Details Date Type Department Care Team Description 05/03/2022 Hospital Encounter Department of Laboratory Shauna Rubin, Anemia Medicine and Pathology, WATER SYSTEMS ENGINEER [facility] in [place], [place] [address] [place] [address] 200 [place] [phone] (Wo rk) Social History Tobacco Use Types [...] you attend sikhism or Patient refused 2021 lutheran services? Do [...] THC multivit-min/iron/folic/ Take 1 tablet by 0 [id number] (HAIR, SKIN AND mouth daily. NAILS ADVANCED [...] 11:47 AM CDT Specimen Information: Specimen ID: [id number] Specimen Type: Blood Specimen Collection Start Date: 10:11 AM Specimen Received Date: 05/03/2022 10:53 AM Specimen ID: [id number] Specimen Type: Blood Specimen Collection Start Date: 2 10:11 AM Specimen Received Date: 05/03/2022 10:53 AM Specimen ID: [id number] Specimen Type: Blood Specimen Collection Start Date: 2 10:11 AM Specimen Received Date: 05/03/2022 10:53 AM Specimen ID: [id number] Specimen Type: Blood Specimen Collection Start Date: 2 10:11 AM Specimen Received Date: 05/03/2022 10:32 AM Specimen ID: [id number] Specimen Type: Blood Specimen Collection Start Date: 10:11 AM Specimen Received Date: 05/03/2022 11:44 AM Shauna Rubin APRN, C.N.P., M.S.N. LAB BLOOD ADD-ON Performing Organization Address City/State/ZIP Code Phon e Number [facility] - [address] [place], [place] [address] [facility] [place] [address] Laboratories-[facility] [address] documented in this encounter Visit Diagnoses Diagnosis Anemia documented in this encounter Additional Health Concerns Assessment Noted Time PHQ-9 Depression Total Score: 16 02/11/2021 12:00 AM C DT documented as of this encounter Care Teams Acid Splicer Relationship Specialty Start Date End Date Elsewhere, Pcp PCP - General Family Medicine 12/25/21 documented as of this encounter
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
--- OUTSIDE RECORDS SUMMARY | 2022-11-08 13:59 | XMS_ITS | Encounter Summary ---
:1965 Author Organization [facility] Address [address] [place] [address] Care Team Providers Name Role Phone Elsewhere, Pcp Primary Care Provider Unavailable Reason for Visit Outpatient (Routine) - Closed Specialty Diagnoses / Procedures Referred By Contact Refer red To Contact Anesthesiology Diagnoses Anemia Shauna Rubin APRN, [facility] C.N.PBritton, M.S.N. [address] [place] [phone] Referral ID Status Reason Start Date Expiration Date Visits Requ ested Visits Authorized [id number] Closed 04/22/2022 04/22/2023 1 1 Encounter Details Date Type Department Care Team Description 05/03/2022 Comprehensive Visit Preoperative Evaluation Shauna Gomez APRN, C.N.P., M.S.N. [address] [place] [phone] Anemia Center in [facility] Peter Tse R.N. [address] [place] [phone] [place] [address] [place] [phone] Social History Tobacco Use Types Packs/Day [...] you attend mandaen or Patient refused 2021 scientology services? Do [...] or the highest technical, or vocational p [facility] degree you have received? Sex Assigned at [...] iron in the past when living in [place] (approximately 5-6 years ago). Therapy Plan: With the planned ARTHROPLASTY REPLACEMENT TOTAL SHOULDER on 05/18/2022 the patient would meet criteria based on the Preoperative Anemia Treatment Algorithm and RN Anemia Protocol to receive 1 x 1,000 mgdose of IV iron dextran. Patient agrees with this and would like this administered @ [facility] [place] [facility]. I provided the patient with the education pamphlet [id number] Treating Anemia Before Surgery andanswered her questions [...] documented as of this encounter Care Teams Multimedia Authoring Specialist Relationship Specialty Start Date End Date Elsewhere, Pcp PCP - General Family Medicine 12/25/21 documented as of this encounter
--- OUTSIDE RECORDS SUMMARY | 2022-11-08 13:59 | XMS_ITS | Encounter Summary ---
:1965 Author Organization [facility] Address [address] [place] [address] Care Team Providers Name Role Phone Elsewhere, Pcp Primary Care Provider Unavailable Reason for Referral MRI/CAT/PET Scan (Routine) - Closed Specialty Diagnoses / Procedures Referred By Contact Refer red To Contact Radiology Diagnoses Painful Total Joint Arthroplasty Initial ([facility]) Alfredo Herrera [place] Procedures CT Shoulder Left without IV Contrast O.P.A.-C. [address] [place] [phone] Referral ID Status Reason Start Date Expiration Date Visits Requ ested Visits Authorized [id number] Closed 04/02/2022 04/02/2023 1 1 Reason for Visit MRI/CAT/PET Scan (Routine) - Closed Specialty Diagnoses / Procedures Referred By Contact Refer red To Contact Radiology Diagnoses Painful Total Joint Arthroplasty Initial ([facility]) Alfredo Herrera [place] Procedures CT Shoulder Left without IV Contrast O.P.A.-C. [address] [place] [phone] Referral ID Status Reason Start Date Expiration Date Visits Requ ested Visits Authorized [id number] Closed 04/02/2022 04/02/2023 1 1 Encounter Details Date Type Department Care Team Description 04/14/2022 Hospital Encounter Department of Alfredo Herrera Painful Total Joint Radiology, Emily HillA.-CBritton Arthroplasty Initial Building, in [address] [place] [address] ([facility]) [facility] [phone] 200 [facility] [phone] [place], [place] (Work) [phone] Social History Tobacco Use Types Packs/Day Years [...] you attend voodoo or Patient refused 2021 congregation services? Do [...] THC multivit-min/iron/folic/ Take 1 tablet by 0 [id number] (HAIR, SKIN AND mouth daily. NAILS ADVANCED [...] Laterality Modality Shoulder, Upper Extremity, Left Computed Tacso graphy, Computed Musculoskeletal RST LOS, Musculoskeletal Tomography [...] as of this encounter Care Teams Senior Ssis Developer Relationship Specialty Start Date End Date Elsewhere, Pcp PCP - General Family Medicine 12/25/21 documented as of this encounter
--- OUTSIDE RECORDS SUMMARY | 2022-11-08 13:59 | XMS_ITS | Encounter Summary ---
:1965 Author Organization [facility] Address [address] [place] [address] Care Team Providers Name Role Phone Elsewhere, Pcp Primary Care Provider Unavailable Reason for Referral Outpatient (Routine) - Closed Specialty Diagnoses / Procedures Referred By Contact Refer red To Contact Anesthesiology Diagnoses Anemia [facility] C.N.PBritton, M.S.N. [address] [place] [phone] Referral ID Status Reason Start Date Expiration Date Visits Requ ested Visits Authorized [id number] Closed 04/22/2022 04/22/2023 1 1 Encounter Details Date Type Department Care Team Description 04/22/2022 Orders Only Preoperative Evaluation Shauna Rubin (Primary Dx) Center in [facility] NIKKY Diaz [place], [place] M.S.N. [address] [place] [address] [place] [phone] [place], [place] [phone] Social History Tobacco Use Types Packs/Day Years [...] you attend christianity or Patient refused 2021 voodoo services? Do [...] 11:47 AM CDT Specimen Information: Specimen ID: [id number] Specimen Type: Blood Specimen Collection Start Date: 10:11 AM Specimen Received Date: 05/03/2022 10:53 AM Specimen ID: [id number] Specimen Type: Blood Specimen Collection Start Date: 10:11 AM Specimen Received Date: 05/03/2022 10:53 AM Specimen ID: [id number] Specimen Type: Blood Specimen Collection Start Date: 10:11 AM Specimen Received Date: 05/03/2022 10:53 AM Specimen ID: [id number] Specimen Type: Blood Specimen Collection Start Date: 10:11 AM Specimen Received Date: 05/03/2022 10:32 AM Specimen ID: [id number] Specimen Type: Blood Specimen Collection Start Date: 2 10:11 AM Specimen Received Date: 05/03/2022 11:44 AM Shauna Rubin APRN CBrittonNBetty., M.S.N. LAB BLOOD ADD-ON Performing Organization Address City/State/ZIP Code Phon e Number [facility] - [address] [place], [place] [address] [facility] [place] [address] Laboratories-[facility] [address] documented in this encounter Visit Diagnoses Diagnosis Anemia - Primary Anemia documented in this encounter Additional Health Concerns Assessment Noted Time PHQ-9 Depression Total Score: 16 02/11/2021 12:00 AM C DT documented as of this encounter Care Teams Product Support Representative Relationship Specialty Start Date End Date Elsewhere, Pcp PCP - General Family Medicine 12/25/21 documented as of this encounter
--- OUTSIDE RECORDS SUMMARY | 2022-11-08 13:59 | XMS_ITS | Encounter Summary ---
:1965 Author Organization [facility] Address [address] [place] [address] Care Team Providers Name Role Phone Elsewhere, Pcp Primary Care Provider Unavailable Reason for Visit Reason Comments Pre-visit Intake Encounter Details Date Type Department Care Team Description 05/12/2022 Clinical Communication Department of Cyrus Polk e-visit Intake Orthopedic Surgery [place] in [place], [address] [place] [address] [place] [phone] [place], [place] [phone] (Work) [phone] Social History Tobacco Use Types Packs/Day Years [...] you attend tenriism or Patient refused 2021 samaritan services? Do [...] as of this encounter Care Teams Assistant Plant Controller Relationship Specialty Start Date End Date Elsewhere, Pcp PCP - General Family Medicine 12/25/21 documented as of this encounter
--- OUTSIDE RECORDS SUMMARY | 2022-11-08 13:59 | XMS_ITS | Encounter Summary ---
:1965 Author Organization [facility] Address [address] [place] [address] Care Team Providers Name Role Phone Elsewhere, Pcp Primary Care Provider Unavailable Reason for Referral Outpatient (Routine) - Closed Specialty Diagnoses / Procedures Referred By Contact Refer red To Contact Orthopedic Surgery Diagnoses Pain Shoulder Left [facility] [address] [place] [phone] Referral ID Status Reason Start Date Expiration Date Visits Requ ested Visits Authorized [id number] Closed 04/22/2022 04/22/2023 1 1 Reason for Visit Reason Comments pre op orders Encounter Details Date Type Department Care Team Description 04/22/2022 Clinical Communication Department of Cyrus Polk op orders Orthopedic Surgery in [place] Souza [place], [place] [address] [place] [address] 200 [place] [phone] Social History Tobacco Use Types Packs/Day Years [...] you attend methodist or Patient refused 2021 sikh services? Do you belong to any clubs or No 05/17/2022 organizations such as methodist groups, unions, [employer] or athletic groups, or school groups? [...] encounter Miscellaneous Notes Telephone Encounter - Sosa aLughlin - 04/22/2022 7:32 AM CDT Please sign [...] 05/17/2022 DTL Black/ mL/min/BSA 12:12 PM CDT North Korean Comment: ----ADDITIONAL INFORMATION---- Estimated GFR calculated [...] City/State/ZIP Code Phon e Number [facility] - [address] [place], [place] [address] [facility] [place] [address] Laboratories-[facility] [address] Type and [...] City/State/ZIP Code Phon e Number [facility] - [address] [place], [place] [address] [facility] [place] [address] Laboratories-[facility] [address] (ABNORMAL) CBC with Differential, Blood (05/17/2022 10:50 AM CDT) [facility] [place] Method Time Signature Hemoglobin 9.2 (L) 11.6 [...] City/State/ZIP Code Phon e Number [facility] - [address] [place] [address] [facility] [place] [address] Laboratories-[facility] 200 [facility] SARS Coronavirus 2, Molecular Detection, PCR, Varies Asymptomatic (05/17/2022 10:26 AM CDT) [facility] Method Time Signature COVID-19, Swab, 05/17/2022 [...] ----ADDITIONAL INFORMATION---- This RT-PCR test using the MindJolt SARS-Co V-2 Assay ( Lead[employer].) performed on the MindJolt Two Module System has received Emergency Use Authorization (EUA) by the U.S. Food and Drug Administration, and is modified from the supervisor tank cleaning's instructions with a bridging study. Performance characteristics were verifie d by [facility] in a manner consistent with CLIA requirements. Visit the CDC website: https://www.cdc.g ov/coronavirus/ for the most recent guidelines on [facility] virus testing. Fact Sheet for Healthcare Providers: https://www.fda.gov/media/477897/downloa d Fact Sheet for Patients: https://www.fda.gov/media/923832/downloa d Specimen Anatomical Collection Method Collection Time Receive d Time (Source) Location / / Volume Laterality Varies 05/17/2022 10:26 05/17/2022 (Nasopharynx) AM CDT 10:52 AM CDT Alfredo Kamara LAB MICROBIOLOGY - GENERAL O PATERASARAH Performing Organization Address City/State/ZIP Code Phon e Number [facility] - [address] [place], [place] [address] [facility] [place] [address] Laboratories-[facility] [address] documented in this encounter Visit Diagnoses Diagnosis Pain Shoulder Left - Primary Preoperative Exam documented in this encounter Additional Health Concerns Assessment Noted Time PHQ-9 Depression Total Score: 16 02/11/2021 12:00 AM C DT documented as of this encounter Care Teams Bioinformatics Analyst Relationship Specialty Start Date End Date Elsewhere, Pcp PCP - General Family Medicine 12/25/21 documented as of this encounter
--- OUTSIDE RECORDS SUMMARY | 2022-11-08 13:59 | XMS_ITS | Encounter Summary ---
:1965 Author Organization [facility] Address [address] [place] [address] Care Team Providers Name Role Phone Elsewhere, Pcp Primary Care Provider Unavailable Reason for Visit Outpatient (Routine) - Closed Specialty Diagnoses / Procedures Referred By Contact Refer red To Contact Orthopedic Surgery Diagnoses Pain Shoulder Left Preoperative Exam Alfredo Herrera, [facility] O.P.A.-C. [address] [place] [address] Referral ID Status Reason Start Date Expiration Date Visits Requ ested Visits Authorized [id number] Closed 04/22/2022 04/22/2023 1 1 Encounter Details Date Type Department Care Team Description 05/17/2022 Office Visit Department of Cyrus Polk, Pain Shou lder Left; Orthopedic Surgery in M.D. Preoperative Exam [place], [place] [address] [place] [address] [address] [place] [phone] Social History Tobacco Use Types Packs/Day Years [...] you attend rastafari or Patient refused 2021 baptist services? Do you belong to any clubs or No 05/17/2022 organizations such as rastafari groups, unions, fraClickHome or athletic groups, or school groups? How [...] M.D. - 05/17/2022 9:00 AM CDT SUBJECTIVE Anige Mosquera is a pleasant 57 y.o. female [...] may involve the use of a biomedical analytical scientist made by a [employer] System[employer]ya I or one of my partners have collaborated to design, develop, or improve orthopedic implants, instruments, or products. Both the [facility] and the individual surgeons involved receive royalty payments from the use of those specific devices at other institutions, but no royalties or any other payments are paid for the use of those devices with any [facility] patient. The clinical rationale for the use of those devices as well as the availability and applicability of alternative devices was reviewed. He understands that the final decision for the use of a specific biomedical analytical scientist often is made at the time of [...] documented as of this encounter Care Teams Tufting Machine Operator Single Needle Relationship Specialty Start Date End Date Elsewhere, Pcp PCP - General Family Medicine 12/25/21 documented as of this encounter
--- OUTSIDE RECORDS SUMMARY | 2022-11-08 13:59 | XMS_ITS | Encounter Summary ---
:1965 Author Organization [facility] Address [address] [place] [address] Care Team Providers Name Role Phone Elsewhere, Pcp Primary Care Provider Unavailable Reason for Referral Outpatient (Routine) - Closed Specialty Diagnoses / Procedures Referred By Contact Refer red To Contact Social Work Diagnoses Pain Shoulder Left Preoperative Exam Jenna Zaldivar [place] M.D. Referral ID Status Reason Start Date Expiration Date Visits Requ ested Visits Authorized [id number] Closed 05/10/2022 05/10/2023 1 1 Reason for Visit Reason Comments Pre-visit Testing Orders Encounter Details Date Type Department Care Team Description 05/07/2022 Clinical Communication Department of Jam, Pre- visit Testing Orthopedic Surgery Cyrus Souza M.D. Orders in [place], [address] [place] [address] [place] [phone] [place], [place] [phone] (Work) [phone] Social History Tobacco Use Types Packs/Day Years [...] you attend bahai or Patient refused 2021 uatsdin services? Do you belong to any clubs or No 05/17/2022 organizations such as bahai groups, unions, fraERCOM or athletic groups, or school groups? How [...] Type Priority Associated Diagnoses Order [facility] Social Work - Outpatient Referral Routine [...] as of this encounter Care Teams Agricultural Equipment Test Engineer Relationship Specialty Start Date End Date Elsewhere, Pcp PCP - General Family Medicine 12/25/21 documented as of this encounter
--- OUTSIDE RECORDS SUMMARY | 2022-11-08 14:00 | XMS_ITS | Encounter Summary ---
:1965 Author Organization [facility] Address [address] [place] [address] Care Team Providers Name Role Phone Elsewhere, Pcp Primary Care Provider Unavailable Encounter Details Date Type Department Care Team Description 03/03/2022 Orders Only Pharmacy Prior Auth Ana Rosa Ying [phone] Social History Tobacco Use Types Packs/Day Years [...] you attend christian or Patient refused 2021 restorationism services? Do [...] documented as of this encounter Care Teams Payment Manager Relationship Specialty Start Date End Date Elsewhere, Pcp PCP - General Family Medicine 12/25/21 documented as of this encounter
--- OUTSIDE RECORDS SUMMARY | 2022-11-08 14:00 | XMS_ITS | Encounter Summary ---
:1965 Author Organization [facility] Address [address] [place] [address] Care Team Providers Name Role Phone Elsewhere, Pcp Primary Care Provider Unavailable Reason for Visit Reason Comments Med Refill Encounter Details Date Type Department Care Team Description 03/02/2022 Refill Division of [facility] iRdge Vega M.D. Med Refill Internal Medicine, [place] 200 1 [facility] [place] [address] [place] [address] [place] [address] [place] [address] Social History Tobacco Use [...] you attend denominational or Patient refused 2021 uatsdin services? Do [...] as of this encounter Care Teams Manager Bar Relationship Specialty Start Date End Date Elsewhere, Pcp PCP - General Family Medicine 12/25/21 documented as of this encounter
--- OUTSIDE RECORDS SUMMARY | 2022-11-08 14:00 | XMS_ITS | Encounter Summary ---
:1965 Author Organization [facility] Address [address] [place] [address] Care Team Providers Name Role Phone Elsewhere, Pcp Primary Care Provider Unavailable Encounter Details Date Type Department Care Team Description 03/03/2022 Orders Only Pharmacy Prior Auth Yady Lebron [phone] Social History Tobacco Use Types Packs/Day Years [...] you attend yazidism or Patient refused 2021 presybeterian services? Do [...] as of this encounter Care Teams Vehicle Monitor Technician Relationship Specialty Start Date End Date Elsewhere, Pcp PCP - General Family Medicine 12/25/21 documented as of this encounter
--- OUTSIDE RECORDS SUMMARY | 2022-11-08 14:00 | XMS_ITS | Encounter Summary ---
:1965 Author Organization [facility] Address [address] [place] [address] Care Team Providers Name Role Phone Elsewhere, Pcp Primary Care Provider Unavailable Encounter Details Date Type Department Care Team Description 03/02/2022 Orders Only Pharmacy Prior Auth Ana Rosa Ying [phone] Social History Tobacco Use Types Packs/Day Years [...] you attend evangelical or Patient refused 2021 jewish services? Do [...] documented as of this encounter Care Teams Solo Musician Relationship Specialty Start Date End Date Elsewhere, Pcp PCP - General Family Medicine 12/25/21 documented as of this encounter
--- OUTSIDE RECORDS SUMMARY | 2022-11-08 14:00 | XMS_ITS | Encounter Summary ---
:1965 Author Organization [facility] Address [address] [place] [address] Care Team Providers Name Role Phone Elsewhere, Pcp Primary Care Provider Unavailable Encounter Details Date Type Department Care Team Description 03/02/2022 Orders Only Pharmacy Prior Auth Sarmad Solano [phone] Social History Tobacco Use Types Packs/Day Years [...] you attend faith or Patient refused 2021 congregational services? Do [...] documented as of this encounter Care Teams Phosphoric Acid Operator Relationship Specialty Start Date End Date Elsewhere, Pcp PCP - General Family Medicine 12/25/21 documented as of this encounter
--- OUTSIDE RECORDS SUMMARY | 2022-11-08 14:00 | XMS_ITS | Encounter Summary ---
:1965 Author Organization [facility] Address [address] [place] [address] Care Team Providers Name Role Phone Elsewhere, Pcp Primary Care Provider Unavailable Reason for Visit Reason Comments Medication Question Encounter Details Date Type Department Care Team Description 03/08/2022 Clinical Communication Department of [facility] Orthopedic Surgery Cyrus Souza M.D. in [place], [address] [place] [address] [place] [phone] [place], [place] [phone] (Work) [phone] Social History Tobacco Use Types Packs/Day Years [...] you attend lutheran or Patient refused 2021 jain services? Do [...] 03/08/2022 11:22 AM CDT Kylie, pharmacist at [facility] in [place] calls. She is wondering if you indeed want to fill it. Please call her back at [phone] Regarding the oxycodone script sent today---patient had [...] documented as of this encounter Care Teams Furniture Builder Relationship Specialty Start Date End Date Elsewhere, Pcp PCP - General Family Medicine 12/25/21 documented as of this encounter
--- OUTSIDE RECORDS SUMMARY | 2022-11-08 14:00 | XMS_ITS | Encounter Summary ---
:[address] [facility] Address [address] [place] [address] Care Team Providers Name Role Phone Elsewhere, Pcp Primary Care Provider Unavailable Encounter Details Date Type Department Care Team Description 03/08/2022 Orders Only Department of Orthopedic Melissa Mcdonald M.D. Surgery in [place], [place] [address] [place] [phone] Social History Tobacco Use Types [...] you attend scientologist or Patient refused 2021 voodoo services? Do [...] documented as of this encounter Care Teams Applications Support Specialist Relationship Specialty Start Date End Date Elsewhere, Pcp PCP - General Family Medicine 12/25/21 documented as of this encounter
--- OUTSIDE RECORDS SUMMARY | 2022-11-08 14:00 | XMS_ITS | Encounter Summary ---
:1965 Author Organization [facility] Address [address] [place] [address] Care Team Providers Name Role Phone Elsewhere, Pcp Primary Care Provider Unavailable Encounter Details Date Type Department Care Team Description 03/16/2022 Clinical Communication Department of Cyrus Polk Orthopedic Surgery in Lilian Souza [place], [place] 200 [facility] 200 [place] [phone] Social History Tobacco Use Types Packs/Day Years [...] or the highest technical, or vocational p jonh degree you have received? Sex Assigned at Date Recorded Female 03/01/2019 10:12 AM CDT documented as of this encounter Miscellaneous Notes Telephone Encounter - Kennedi Chris - 03/16/2022 12:15 PM CDT Michael, patient's case finisher from [facility], is calling hoping to speak to someone on Dr. Polk's surgical team to ensure that the patient is receiving the correct post-op care. Patient is set up for post op appointments at the beginning of March here. However, Michael is looking to speak to someone over the phone to ensure the patient is on the right track. Please call [phone]. Thank you. documented in this encounter Plan of Treatment Not on filedocumented as of this encounter Visit Diagnoses Not on filedocumented in this encounter Additional Health Concerns Assessment Noted Time PHQ-9 Depression Total Score: 16 02/11/2021 12:00 AM C DT documented as of this encounter Care Teams Pediatrician Relationship Specialty Start Date End Date Elsewhere, Pcp PCP - General Family Medicine 12/25/21 documented as of this encounter
--- OUTSIDE RECORDS SUMMARY | 2022-11-08 14:00 | XMS_ITS | Encounter Summary ---
:1965 Author Organization [facility] Address [address] [place] [address] Care Team Providers Name Role Phone Elsewhere, Pcp Primary Care Provider Unavailable Reason for Visit Reason Comments pre op orders Encounter Details Date Type Department Care Team Description 04/02/2022 Clinical Communication Department of Cyrus Polk op orders Orthopedic Surgery in Lilian Souza [place], [place] 200 [facility] 200 [place] [phone] Social History Tobacco Use Types Packs/Day Years [...] you attend faith or Patient refused 2021 orthodox services? Do [...] documented as of this encounter Care Teams Lap Grinder Relationship Specialty Start Date End Date Elsewhere, Pcp PCP - General Family Medicine 12/25/21 documented as of this encounter
--- OUTSIDE RECORDS SUMMARY | 2022-11-08 14:00 | XMS_ITS | Encounter Summary ---
:1965 Author Organization [facility] Address [address] [place] [address] Care Team Providers Name Role Phone Elsewhere, Pcp Primary Care Provider Unavailable Encounter Details Date Type Department Care Team Description 03/12/2022 Orders Only Department of Melissa Mcdonald, Arthroplas ty Total Orthopedic Surgery in M.D. Should er Replacement [place], [place] Status Post Left 1216 [facility] (Primary Dx) [place] [address] Social History Tobacco Use Types [...] you attend sabianist or Patient refused 2021 christian services? Do [...] as of this encounter Care Teams Lead Cargo Mover Relationship Specialty Start Date End Date Elsewhere, Pcp PCP - General Family Medicine 12/25/21 documented as of this encounter
--- OUTSIDE RECORDS SUMMARY | 2022-11-08 14:00 | XMS_ITS | Encounter Summary ---
:1965 Author Organization [facility] Address [address] [place] [address] Care Team Providers Name Role Phone Elsewhere, Pcp Primary Care Provider Unavailable Encounter Details Date Type Department Care Team Description 03/11/2022 Documentation Department of Orthopedic Melissa Mcdonald M.D. Surgery in [place], [place] [address] [place] [phone] Social History Tobacco Use Types [...] you attend yarsanism or Patient refused 2021 confucianist services? Do [...] Mr. 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
--- OUTSIDE RECORDS SUMMARY | 2022-11-08 14:00 | XMS_ITS | Encounter Summary ---
:1965 Author Organization [facility] Address [address] [place] [address] Care Team Providers Name Role Phone Elsewhere, Pcp Primary Care Provider Unavailable Reason for Visit Outpatient (Routine) - Closed Specialty Diagnoses / Procedures Referred By Contact Refer red To Contact Diagnoses Painful Total Joint Arthroplasty Initial ([facility]) Alfredo Herrera [place] Procedures ORS US-Guided aspiration/injection O.P.A.-C. [address] [place] [phone] Referral ID Status Reason Start Date Expiration Date Visits Requ ested Visits Authorized [id number] Closed 04/02/2022 04/02/2023 1 1 Encounter Details Date Type Department Care Team Description 04/14/2022 Procedure visit Department of Jey Monzon Painful To beto Joint Orthopedic Surgery in [place] Celaya Arthroplasty Initial [place], [place] [address] [place] [address] ([facility]) [address] [place] [address] [phone] Social History Tobacco Use Types Packs/Day Years [...] you attend spiritism or Patient refused 2021 cheondoism services? Do [...] was performed by Carmelo Guo M.D., M.S. ([phone]). HISTORY: The patient was recently evaluated for [...] and sterile ultrasound gel were used. Machine: [employer] Transducer: 6-15 MHz linear transducer. Patient position: [...] Mosquera Barriers to learning: None Preferred language: German Learning preferences include: Seeing and doing. Discussed: [...] preparation: chlorhexidine/alcohol Images have been archived in [facility]: click the 'Dept Filter' button in [facility], then the 'Clear (ShowAll)' button, then OK. [...] procedure a re in the results section. [place] ARTHCS ASP/INJ Routine 04/14/2022 9:30 AM Painful Total Aliza nt Results for this MJR JT W US CDT Arthroplasty Initial procedu re are in (HCC) the results section. documented in this encounter Results Bacteria Cult, Aerobe / Anaerobe+Susc (04/14/2022 9:35 AM CDT) [facility] Method Time Signature Bacteria Cult, No growth 04/28/2022 DTL Aerobe/Anaerob after 14 11:02 AM CDT e+Susc days of incubation. Specimen Anatomical Collection Method Collection Time Receive d Time (Source) Location / / Volume Laterality Synovial Fluid, 04/14/2022 9:35 AM 2021 Left Shoulder CDT 10:18 AM CDT Comment: Specimen Source Site: Aspirate Narrative [facility] - 04/28/2022 11:02 AM CDT Bacterial Culture: Received Bactec aerob ic and Bactec anaerobic bottles Alfredo Kamara LAB MICROBIOLOGY - GENERAL O RDERABLES Performing Organization Address City/State/ZIP Code Phon e Number [facility] [address] [place], [place] [address] [facility] [place] [address] [facility] 200 [address] [facility] Cell Count and Differential, Body Fluid (04/14/2022 9:35 AM CDT) [facility] Method Time Signature Fluid Type Right 04/14/2022 [...] characteri stics were determined by [facility] in a manner co nsistent with [...] [facility] - [address] [place], [place] [address] [place] [address] [facility] [address] [place] ARTHCS ASP/INJ MJR JT W US (04/14/2022 [...] documented as of this encounter Care Teams Cruise Director Relationship Specialty Start Date End Date Elsewhere, Pcp PCP - General Family Medicine 12/25/21 documented as of this encounter
--- OUTSIDE RECORDS SUMMARY | 2022-11-08 14:00 | XMS_ITS | Encounter Summary ---
:1965 Author Organization [facility] Address [address] [place] [address] Care Team Providers Name Role Phone Elsewhere, Pcp Primary Care Provider Unavailable Reason for Visit Reason Comments Medication Problem Encounter Details Date Type Department Care Team Description 03/01/2022 Clinical Communication Department of Jam [facility] Orthopedic Surgery Cyrus Souza M.D. in [place], [address] [place] [address] [place] [phone] [place], [place] [phone] (Work) [phone] Social History Tobacco Use Types Packs/Day Years [...] 12:04 PM CDT PIPER. Received fax from [employer] 03-03-22 indicating the doxycycline [address] 100 mg tab is approved through 11/27/2022. Telephone Encounter - Cyrus Polk M.D. - 03/02/2022 7:45 AM CDT Please see below Thank you Telephone Encounter - Radha Suh - 03/01/2022 3:36 PM CDT Regina pharmacist working for the insurance company calls regarding the doxycycline hyclate (DORYX) 100 mg EC tablet [[id number]] Script. This is not in their formulary. She has several questions to ask to consider approving this. Please call Regina de jesus [phone], ext [phone] Reference # [id number] documented in this encounter Plan of Treatment Not on filedocumented as of this encounter Visit Diagnoses Not on filedocumented in this encounter Additional Health Concerns Assessment Noted Time PHQ-9 Depression Total Score: 16 02/11/2021 12:00 AM C DT documented as of this encounter Care Teams Open Cut Examiner Relationship Specialty Start Date End Date Elsewhere, Pcp PCP - General Family Medicine 12/25/21 documented as of this encounter
--- OUTSIDE RECORDS SUMMARY | 2022-11-08 14:00 | XMS_ITS | Encounter Summary ---
:1965 Author Organization [facility] Address [address] [place] [address] Care Team Providers Name Role Phone Elsewhere, Pcp Primary Care Provider Unavailable Encounter Details Date Type Department Care Team Description 03/05/2022 Clinical Communication Pharmacy Prior Auth Ben Chino RO M.D. [phone] Social History Tobacco Use Types Packs/Day Years [...] you attend restorationist or Patient refused 2021 baptism services? Do [...] as of this encounter Care Teams Materials Recycler Relationship Specialty Start Date End Date Elsewhere, Pcp PCP - General Family Medicine 12/25/21 documented as of this encounter
--- OUTSIDE RECORDS SUMMARY | 2022-11-08 14:00 | XMS_ITS | Encounter Summary ---
:1965 Author Organization [facility] Address [address] [place] [address] Care Team Providers Name Role Phone Elsewhere, Pcp Primary Care Provider Unavailable Encounter Details Date Type Department Care Team Description 03/05/2022 Orders Only Pharmacy Prior Auth RO Elsewhere, Pcp [phone] Social History Tobacco Use Types Packs/Day Years [...] as of this encounter Care Teams Clinical Informatics Strategist Relationship Specialty Start Date End Date Elsewhere, Pcp PCP - General Family Medicine 12/25/21 documented as of this encounter
--- OUTSIDE RECORDS SUMMARY | 2022-11-08 14:00 | XMS_ITS | Encounter Summary ---
:1965 Author Organization [facility] Address [address] [place] [address] Care Team Providers Name Role Phone Elsewhere, Pcp Primary Care Provider Unavailable Reason for Referral Outpatient (Routine) - Closed Specialty Diagnoses / Procedures Referred By Contact Refer red To Contact Diagnoses Painful Total Joint Arthroplasty Initial (HCC) Alfredo Herrera [place] Procedures ORS US-Guided aspiration/injection O.P.A.-C. 200 [place], [place] [address] Referral ID Status Reason Start Date Expiration Date Visits Requ ested Visits Authorized [id number] Closed 04/02/2022 04/02/2023 1 1 MRI/CAT/PET Scan (Routine) - Closed Specialty Diagnoses / Procedures Referred By Contact Refer red To Contact Radiology Diagnoses Painful Total Joint Arthroplasty Initial (HCC) Alfredo Herrera [place] Procedures CT Shoulder Left without IV Contrast O.P.A.-C. 200 [place], [place] [phone] Referral ID Status Reason Start Date Expiration Date Visits Requ ested Visits Authorized [id number] Closed 04/02/2022 04/02/2023 1 1 Reason for Visit Outpatient (Routine) - Closed Specialty Diagnoses / Procedures Referred By Contact Refer red To Contact Orthopedic Surgery Diagnoses Arthroplasty Total Shoulder Replacement Status [facility] [address] [place] [address] Referral ID Status Reason Start Date Expiration Date Visits Requ ested Visits Authorized [id number] Closed 02/25/2022 02/25/2023 1 1 Encounter Details Date Type Department Care Team Description 04/02/2022 Office Visit Department of Cyrus Polk Arthroplasty Total Shoulder Replacement Status Post Left; Orthopedic Surgery in [place] Sou[place] Painful Total Joint Arthroplasty Initial (HCC) [place], [place] [address] [facility] [address] [place] [phone] Social History Tobacco Use Types Packs/Day [...] you attend hindu or Patient refused 2021 yazdanism services? Do [...] Cyrus Polk M.D. CT CT Job ID: [id number] documented in this encounter Plan of Treatment [...] City/State/ZIP Code Phon e Number [facility] - [address] [place] [address] [facility] [place] [address] Laboratories[facility] 200 [facility] (ABNORMAL) CBC without Differential (04/14/2022 10:42 AM CDT) [facility] gist Method Time Signature Hemoglobin 8.6 [...] City/State/ZIP Code Phon e Number [facility] - [address] [place], [place] [address] [facility] [place] [address] [facility] [address] [place] ARTHCS ASP/INJ MJR JT W US (04/14/2022 [...] documented as of this encounter Care Teams Lockstitch Machine Operator Relationship Specialty Start Date End Date Elsewhere, Pcp PCP - General Family Medicine 12/25/21 documented as of this encounter
--- OUTSIDE RECORDS SUMMARY | 2022-11-08 14:00 | XMS_ITS | Encounter Summary ---
:1965 Author Organization [facility] Address [address] [place] [address] Care Team Providers Name Role Phone Elsewhere, Pcp Primary Care Provider Unavailable Reason for Referral Outpatient (Routine) - Closed Specialty Diagnoses / Procedures Referred By Contact Refer red To Contact Diagnoses Arthroplasty Total Shoulder Replacement Status Post Left Alfredo Herrera O.P.A.-C. [facility] Procedures DX Shoulder Left Ingrowth Series [address] Views [address] [place] [phone] Referral ID Status Reason Start Date Expiration Date Visits Requ ested Visits Authorized [id number] Closed 02/25/2022 02/25/2023 1 1 Reason for Visit Outpatient (Routine) - Closed Specialty Diagnoses / Procedures Referred By Contact Refer red To Contact Diagnoses Arthroplasty Total Shoulder Replacement Status Post Left Alfredo Herrera O.P.A.-C. [facility] Procedures DX Shoulder Left Ingrowth Series 5 Views [address] [place] [phone] Referral ID Status Reason Start Date Expiration Date Visits Requ ested Visits Authorized [id number] Closed 02/25/2022 02/25/2023 1 1 Encounter Details Date Type Department Care Team Description 04/02/2022 Hospital Encounter Department of Alfredo Herrera Total Radiology, Anh Gonzales Shoulder Replacement [facility], in [address] [place] [address] Status Post Left [facility] [phone] [place], [place] (Work) [phone] Social History Tobacco Use Types Packs/Day Years [...] you attend nondenominational or Patient refused 2021 gnosticism services? Do [...] THC multivit-min/iron/folic/ Take 1 tablet by 0 [id number] (HAIR, SKIN AND mouth daily. NAILS ADVANCED [...] as of this encounter Care Teams Automatic Pad Making Machine Operator Relationship Specialty Start Date End Date Elsewhere, Pcp PCP - General Family Medicine 12/25/21 documented as of this encounter
--- OUTSIDE RECORDS SUMMARY | 2022-11-08 14:00 | XMS_ITS | Encounter Summary ---
:1965 Author Organization [facility] Address [address] [place] [address] Care Team Providers Name Role Phone Elsewhere, Pcp Primary Care Provider Unavailable Encounter Details Date Type Department Care Team Description 03/03/2022 Orders Only Pharmacy Prior Auth Usha Maurer [phone] Social History Tobacco Use Types Packs/Day Years [...] you attend nondenominational or Patient refused 2021 sabianism services? Do [...] documented as of this encounter Care Teams Vacuum Tester Cans Relationship Specialty Start Date End Date Elsewhere, Pcp PCP - General Family Medicine 12/25/21 documented as of this encounter
--- OUTSIDE RECORDS SUMMARY | 2022-11-08 14:00 | XMS_ITS | Encounter Summary ---
:1965 Author Organization [facility] Address [address] [place] [address] Care Team Providers Name Role Phone Elsewhere, Pcp Primary Care Provider Unavailable Encounter Details Date Type Department Care Team Description 03/08/2022 Orders Only Department of Orthopedic Melissa Mcdonald M.D. Surgery in [place], [place] [address] [place] [phone] Social History Tobacco Use Types [...] you attend christianity or Patient refused 2021 samaritan services? Do [...] as of this encounter Care Teams Die Cast Technician Relationship Specialty Start Date End Date Elsewhere, Pcp PCP - General Family Medicine 12/25/21 documented as of this encounter
--- OUTSIDE RECORDS SUMMARY | 2022-11-08 14:00 | XMS_ITS | Encounter Summary ---
:1965 Author Organization [facility] Address [address] [place] [address] Care Team Providers Name Role Phone Elsewhere, Pcp Primary Care Provider Unavailable Encounter Details Date Type Department Care Team Description 03/02/2022 Orders Only Pharmacy Prior Auth Brooklyn Frias [phone] Social History Tobacco Use Types Packs/Day Years [...] you attend adventism or Patient refused 2021 rastafari services? Do [...] documented as of this encounter Care Teams Load Dispatcher Relationship Specialty Start Date End Date Elsewhere, Pcp PCP - General Family Medicine 12/25/21 documented as of this encounter
--- OUTSIDE RECORDS SUMMARY | 2022-11-08 14:00 | XMS_ITS | Encounter Summary ---
:1965 Author Organization [facility] Address [address] [place] [address] Care Team Providers Name Role Phone Elsewhere, Pcp Primary Care Provider Unavailable Reason for Visit Reason Comments Communication Encounter Details Date Type Department Care Team Description 03/11/2022 Clinical Communication Department of Cyrus Polk mmunication Orthopedic Surgery in [place], [place] [address] [place] [phone] Social History Tobacco Use Types Packs/Day Years [...] you attend christianity or Patient refused 2021 rastafarian services? Do [...] and cannot afford any to drive to [place] and picker machine operator [place]. Telephone Encounter - Radha Suh [...] of this encounter Care Teams Director Of Instrumental Music Relationship Specialty Start Date End Date Elsewhere, Pcp PCP - General Family Medicine 12/25/21 documented as of this encounter
--- OUTSIDE RECORDS SUMMARY | 2022-11-08 14:00 | XMS_ITS | Encounter Summary ---
:1965 Author Organization [facility] Address [address] [place] [address] Care Team Providers Name Role Phone Elsewhere, Pcp Primary Care Provider Unavailable Encounter Details Date Type Department Care Team Description 03/19/2022 Clinical Communication Department of Cyrus Polk Orthopedic Surgery in [place], [place] 200 [facility] [address] [place] [phone] Social History Tobacco Use Types Packs/Day Years [...] you attend taoist or Patient refused 2021 uatsdin services? Do [...] discussed this situation with the O.R. supervisor newspaper deliveries, the A.M. admission Program Professional, and the Outpatient Program Professional and no one can locate this remote [...] Please return a call to her at [phone] documented in this encounter Plan of Treatment Not on filedocumented as of this encounter Visit Diagnoses Not on filedocumented in this encounter Additional Health Concerns Assessment Noted Time PHQ-9 Depression Total Score: 16 02/11/2021 12:00 AM C DT documented as of this encounter Care Teams Load Tester Relationship Specialty Start Date End Date Elsewhere, Pcp PCP - General Family Medicine 12/25/21 documented as of this encounter
--- OUTSIDE RECORDS SUMMARY | 2022-11-08 14:00 | XMS_ITS | Encounter Summary ---
:1965 Author Organization [facility] Address [address] [place] [address] Care Team Providers Name Role Phone Elsewhere, Pcp Primary Care Provider Unavailable Encounter Details Date Type Department Care Team Description 03/08/2022 Documentation Department of Orthopedic Melissa Mcdonald M.D. Surgery in [place], [place] [address] [place] [address] Social History Tobacco Use [...] you attend confucianist or Patient refused 2021 congregation services? Do [...] documented as of this encounter Care Teams Wrinkle Chaser Relationship Specialty Start Date End Date Elsewhere, Pcp PCP - General Family Medicine 12/25/21 documented as of this encounter
--- OUTSIDE RECORDS SUMMARY | 2022-11-08 14:01 | XMS_ITS | Encounter Summary ---
:1965 Author Organization [facility] Address [address] [place] [address] Care Team Providers Name Role Phone Elsewhere, Pcp Primary Care Provider Unavailable Encounter Details Date Type Department Care Team Description 02/26/2022 Surgery RST SE[facility]ORAN OR Cyrus Polk, ARTHROPLASTY REPLACEMENT [address] [facility] [place] [address] 200 [facility] [phone] [place] [address] Social History Tobacco Use Types Packs/Day Years [...] or the highest technical, or vocational p [place] degree you have received? Sex Assigned at [...] THC multivit-min/iron/folic/ Take 1 tablet by 0 [id number] (HAIR, SKIN AND mouth daily. NAILS ADVANCED [...] am until 6 pm, please page the [facility] pager at [phone] For urgent matters from 6 pm until 6 am, please page Ortho House at [phone] Michael Chino M.D. - 02/26/2022 3:03 PM CDT Orthopedic Service: [facility] Admission Day: 02/26/2022 SUBJECTIVE [...] am until 6 pm, please page the 12Bis pager at [phone] For urgent matters from 6 pm until 6 am, please page Ortho House at [phone] Clemente Buck, Pharm.D., R.Ph. - 02/26/2022 9:17 [...] Take 150 mg by mouth every morning. phlmlvlgls-ctlykcixwjnni-qpsg (ESGIC) 50-325-40 mg per tablet Past Week [...] 1 spray as needed. 5 mg THC multivit-min/iron/folic/[id number] (HAIR, SKIN AND NAILS ADVANCED ORAL) 02/25/2022 [...] (HCC) ??? Nicotine Dependence Unspecified ??? 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 Direct Infection Of [...] assistance ADL Assistance Comments: Gets help from [employer] for her bath/shower and for her meals IADL/Homemaking Assistance: Required assistance IADL/Homemaking Assistance Comments: Gets help for housecleaning Driving: Independent Driving Comments: takes her cane and medical alert with her. Occupational Role: On disability Occupational Role Comments: Previously worked at a [employer] Prior Mobility/Functional Transfers Level of [place]: Modified independent Previous Transfer/Mobility Assistance Comments: Patient [...] mask during therapy session: yes Outcome Measures -[facility] Inpatient Short Form: AM-[facility] Basic Mobility (V.2) How much [...] Climbing 3-5 steps with a railing?: None AM-[facility] Basic Mobility (V.2) Raw Score: 24 AM-[facility] Basic Mobility (V.2) Standardized Score: 57.68 Interpretation: Clinicians answer the -[facility] Inpatient Short Form based on [...] Prescriptions were sent and filled at the [facility] pharmacy. Catalina Mccloud R.N. - [...] post placement antibiotic spacer. A first aid teacher was necessary for one or more [...] be placed with approximately 70% contact with campo bone. The more superior aspect of the [...] of antibiotic spacer, implantation of reverse arthroplasty, [id number] Cyrus Polk M.D. CT CT Job ID: [id number] documented in this encounter Plan of Treatment [...] [facility] - [address] [place], [place] [address] [facility] [place] [address] Laboratories-[facility] [address] (ABNORMAL) Basic [...] 02/26/2022 DTL Black/ mL/min/BSA 6:27 PM CDT [place]an Comment: ----ADDITIONAL INFORMATION---- Estimated GFR [...] [facility] - [address] [place], [place] [address] [facility] [place] [place] [address] Laboratories-[facility] [address] [facility] (ABNORMAL) CBC with Differential, Blood (02/26/2022 3:47 PM CDT) [facility] Method Time Signature Hemoglobin 8.8 (L) [...] [facility] - [address] [place] [address] [facility] [place] [address] Laboratories-[address] DX Shoulder Left 1 View (02/26/2022 [...] Aerobe / Anaerobe+Susc (02/26/2022 1:00 PM CDT) [facility] Method Time Signature Bacteria Cult, No [...] - GENERAL O MARY Performing Organization Address City/[facility] Phon e Number [facility] - [address] [place], [place] [address] [place], [place] [id number] [place] [address] 200 [facility] Bacteria Cult, Aerobe / Anaerobe+Susc (02/26/2022 1:00 PM CDT) [facility] Method Time Signature Bacteria Cult, No [...] - GENERAL Lebron HERNANDEZ Performing Organization Address City/[facility]/ZIP Code Phon e Number [facility] - [address] [place], [place] [address] [place], [place] [phone] [place] [address] [address] [facility] Bacteria Cult, Aerobe / Anaerobe+Susc (02/26/2022 1:00 PM CDT) [facility] Method Time Signature Bacteria Cult, No growth 03/12/2022 DTL Aerobe/Anaerob after 14 2:02 PM CDT e+Susc days of incubation. Specimen Anatomical Collection Method Collection Time Receive d Time (Source) Location / / Volume Laterality Shoulder, Left 02/26/2022 1:00 PM 04/01/2 022 1:36 CDT PM CDT Comment: Specimen Source Site: Tissue 2 Narrative [facility] - [facility] - 03/12/2022 2:02 PM CDT Bacterial Culture: Placed in Bactec aero bic and Bactec anaerobic bottles Cyrus Polk M.D. LAB MICROBIOLOGY - GENERAL O RDERABLES Performing Organization Address City/State/ZIP Code Phon e Number [facility] - [address] [place] [address] [facility] [place] [address] Laboratories-[facility] [address] [facility] Surgical Pathology, Frozen Lab (02/26/2022 1:00 [...] permanent sections. ??Grossed by Nan Ledezma M.S., PA([facility]). Block Summary A Left shoulder [...] [facility] - [address] [place], [place] [address] [facility] [place] [place] [address] Laboratories-[facility] [address] [...] 02/26/2022 02/27/2022 acetaminophen tablet 1,000 mg (TYLENOL) 9673 (Given - Provider: Tanesha Butt)4733 (Given - Provider: Tanesha Butt) 043 (Given [...] Butt) 0825 (Given - Provider: Catalina lerma R.NBirtton) 200 mg, oral, 2 times daily, First [...] Butt) 0825 (Given - Provider: Caatlina Mccloud RBrittonN.) 600 mg, oral, 2 times [...] (CYKLOKAPRON) (COMPLET ED) 1230 (Given - Provider: Teajl Gonzalez RBrittonNBritton) 1,000 mg (1 g), intravenous, [...] 2 hour [place] N, indigestion, Starting on Tue02/26/22 at 1451, [...] documented as of this encounter Care Teams Marbleizing Machine Tender Relationship Specialty Start Date End Date Elsewhere, Pcp PCP - General Family Medicine 12/25/21 documented as of this encounter
--- OUTSIDE RECORDS SUMMARY | 2022-11-08 14:01 | XMS_ITS | Encounter Summary ---
:1965 Author Organization [facility] Address [address] [place] [address] Care Team Providers Name Role Phone Elsewhere, Pcp Primary Care Provider Unavailable Encounter Details Date Type Department Care Team Description 02/26/2022 Anesthesia Event RST [facility]ORAN OR Kaushik Carpenter, [address] [facility] M.BBritt[place], [place] [address] [address] [facility] [phone] [place] [address] (Wo rk) Anesthesia Record Procedure Summary Procedure [...] to the receiving staff during [facility] we 1. Identified the patient [...] the highest technical, or vocational p [facility] degree you have received? Sex Assigned at Date Recorded Female 03/01/2019 10:12 AM CDT documented as of this encounter OR Notes Anesthesia Postprocedure Evaluation - Kaushik Carpenter M.B., Ch.B. - 02/26/2022 3:19 PM CDT Patient: Angie Mosquera Procedure Summary Date: 02/26/22 Room / Location: [address] / [facility] in [place], [place] Anesthesia Start: 1212 Anesthesia Stop: 143 [...] ETT location: oral VL device: glide scope [place] scope blade size: 3 Adult tube size: [...] Pre-op diagnosis: Degenerative joint disease left. Location: [address] / [facility] in [place], [place] Providers: Cyrus Polk M.D. Pertinent components [...] fellow participated in the procedure, and the building energy consultant was present for the entire procedure. [...] Kaushik Carpenter M.B., Ch.B. 3. Juana Silva FLORIST DESIGNER, FREEZER ASSISTANT Patient location during procedure: OR / Procedure Area PROCEDURE DETAILS: Mask difficulty assessment: easy mask Final airway type: video laryngoscope Laryngeal Manipulation: no ?? Final best view of glottic structures - Cormack/Lehane Score: grade 1 ETT location: oral VL device: glide scope [place] scope blade size: 3 Adult tube size: [...] Ch.B. ANESTHESIA ORDERABLES ID INJ ANES BRACHIAL PLEX W GUIDANCE, ID US GUIDE PLC NDL, MC ANE NERVE [...] fellow participated in the procedure, and the building energy consultant was present for the entire procedure. [...] documented as of this encounter Care Teams Narrow Gauge Brakeman Relationship Specialty Start Date End Date Elsewhere, Pcp PCP - General Family Medicine 12/25/21 documented as of this encounter
--- OUTSIDE RECORDS SUMMARY | 2022-11-08 14:01 | XMS_ITS | Encounter Summary ---
:1965 Author Organization [facility] Address [address] [place] [address] Care Team Providers Name Role Phone Elsewhere, Pcp Primary Care Provider Unavailable Reason for Referral MRI/CAT/PET Scan (Routine) - Closed Specialty Diagnoses / Procedures Referred By Contact Refer red To Contact Radiology Diagnoses Painful Total Joint Arthroplasty Initial ([facility]) Michael Chino M.D. [facility] Procedures CT Shoulder Left without IV Contrast [address] [place] [address] Referral ID Status Reason Start Date Expiration Date Visits Requ ested Visits Authorized [id number] Closed 02/25/2022 02/25/2023 1 1 Encounter Details Date Type Department Care Team Description 02/25/2022 Orders Only Department of Michael Chino Painful T otal Joint Orthopedic Surgery in [place].Neri Arthro plasty Initial [place], [place] ([facility]) [address] [place] [address] Social History Tobacco Use Types Packs/Day Years [...] you attend jain or Patient refused 2021 scientology services? Do you belong to any clubs or No 05/17/2022 organizations such as jain groups, [employer], [employer] or athletic groups, or school groups? [...] as of this encounter Care Teams Assistant Tennis Coach Relationship Specialty Start Date End Date Elsewhere, Pcp PCP - General Family Medicine 12/25/21 documented as of this encounter
--- OUTSIDE RECORDS SUMMARY | 2022-11-08 14:01 | XMS_ITS | Encounter Summary ---
:1965 Author Organization [facility] Address [address] [place] [address] Care Team Providers Name Role Phone Elsewhere, Pcp Primary Care Provider Unavailable Encounter Details Date Type Department Care Team Description 02/26/2022 Orders Only [facility] Michael Chino M. D. Grant [address] [place] [address] Social History Tobacco Use [...] you attend advent or Patient refused 2021 quaker services? Do [...] as of this encounter Care Teams Chief Risk Officer Relationship Specialty Start Date End Date Elsewhere, Pcp PCP - General Family Medicine 12/25/21 documented as of this encounter
--- OUTSIDE RECORDS SUMMARY | 2022-11-08 14:01 | XMS_ITS | Encounter Summary ---
:1965 Author Organization [facility] Address [address] [place] [address] Care Team Providers Name Role Phone Elsewhere, Pcp Primary Care Provider Unavailable Encounter Details Date Type Department Care Team Description 02/26/2022 Clinical Communication RST [facility] Austyn Breaux, Pharmacy [facility] [address] [facility] [place] [address] Social History Tobacco Use Types [...] you attend restorationism or Patient refused 2021 spiritism services? Do [...] documented as of this encounter Care Teams Esl Instructional Assistant Relationship Specialty Start Date End Date Elsewhere, Pcp PCP - General Family Medicine 12/25/21 documented as of this encounter
--- OUTSIDE RECORDS SUMMARY | 2022-11-08 14:01 | XMS_ITS | Encounter Summary ---
:1965 Author Organization [facility] Address [address] [place] [address] Care Team Providers Name Role Phone Elsewhere, [...] you attend mormon or Patient refused 2021 samaritan services? Do [...] documented as of this encounter Care Teams Learning Coordinator Relationship Specialty Start Date End Date Elsewhere, Pcp PCP - General Family Medicine 12/25/21 documented as of this encounter
--- OUTSIDE RECORDS SUMMARY | 2022-11-08 14:01 | XMS_ITS | Encounter Summary ---
:1965 Author Organization [facility] Address [address] [place] [address] Care Team Providers Name Role Phone Elsewhere, Pcp Primary Care Provider Unavailable Encounter Details Date Type Department Care Team Description 02/26/2022 Clinical Communication RST [facility] Janet Sarmiento N, [address] [facility].Ph.T. [place], [place] [phone] [address] (Work) [phone] Social History Tobacco Use Types Packs/Day Years [...] you attend pentecostal or Patient refused 2021 christian services? Do [...] documented as of this encounter Care Teams Postpartum Rn Relationship Specialty Start Date End Date Elsewhere, Pcp PCP - General Family Medicine 12/25/21 documented as of this encounter
--- OUTSIDE RECORDS SUMMARY | 2022-11-08 14:01 | XMS_ITS | Encounter Summary ---
:1965 Author Organization [facility] Address [address] [place] [address] Care Team Providers Name Role Phone Elsewhere, Pcp Primary Care Provider Unavailable Reason for Referral Medication Prior Authorization - Denied Specialty Diagnoses / Procedures Referred By Contact Refer red To Contact Michael Chino M.D. Referral ID Status Reason Start Date Expiration Date Visits Requ ested Visits Authorized [id number] Denied 1 1 Encounter Details Date Type Department Care Team Description 02/26/2022 - Hospital Encounter [facility] Jam, Shoulder Joint Disorder Left; 02/27/2022 Hospital, [facility] Cyrus Souza M.D. Pain Shoulder Left [facility] [address] [facility] [place], [place] Floor [address] [address] [facility] [phone] [place], [place] (Work) [phone] Social History Tobacco Use [...] you attend christian or Patient refused 2021 advent services? Do you belong to any clubs or No 05/17/2022 organizations such as christian groups, unions, [employer] or athletic groups, or school groups? [...] THC multivit-min/iron/folic/ Take 1 tablet by 0 [id number] (HAIR, SKIN AND mouth daily. NAILS ADVANCED [...] - 02/27/2022 8:05 AM CDT Orthopedic Service: [facility] Admission Day: 02/26/2022 SUBJECTIVE POD1. She [...] 1 Obesity (BMI 30 to <35). stable Navay Gibson M.D. For any questions or concerns from 6 am until 6 pm, please page the Jam Service pager at [phone] For urgent matters from 6 pm until 6 am, please page Ortho [place] at [phone] Michael Chino M.D. - 02/26/2022 3:03 PM CDT Orthopedic Service: [facility] Admission Day: 02/26/2022 SUBJECTIVE [...] am until 6 pm, please page the Quid pager at [phone] For urgent matters from 6 pm until 6 am, please page Ortho [facility] at [phone] Clemente Buck Pharm.D., R.Ph. - 02/26/2022 9:17 [...] Take 150 mg by mouth every morning. hmjupgxloy-oszbolluzyrkl-mvmc (ESGIC) 50-325-40 mg per tablet Past Week [...] 1 spray as needed. 5 mg THC multivit-min/iron/folic/[id number] (HAIR, SKIN AND NAILS ADVANCED ORAL) 02/25/2022 [...] (HCC) ??? Nicotine Dependence Unspecified ??? 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 Direct Infection Of [...] Right Lives With: Alone Receives Help From: skate shop attendant, Family, Friend(s) ADL Assistance: Required assistance ADL Assistance Comments: Gets help from HYDRO ELECTRIC STATION OPERATOR for her bath/shower and for her meals IADL/Homemaking Assistance: Required assistance IADL/Homemaking Assistance Comments: Gets help for housecleaning Driving: Independent Driving Comments: takes her cane and medical alert with her. Occupational Role: On disability Occupational Role Comments: Previously worked at a [employer] and [employer] Prior Mobility/Functional Transfers Level of [place]: Modified independent Previous Transfer/Mobility Assistance Comments: Patient [...] Climbing 3-5 steps with a railing?: None AM-[facility] Basic Mobility (V.2) Raw Score: 24 AM-[facility] Basic Mobility (V.2) Standardized Score: 57.68 Interpretation: Clinicians answer the -[facility] Inpatient Short Form based on [...] Prescriptions were sent and filled at the [facility] pharmacy. Catalina Mccloud R.N. - 02/27/2022 [...] elsewhere status post placement antibiotic spacer. A asset protection assistant was necessary for one or more [...] be placed with approximately 70% contact with wainwright bone. The more superior aspect of the [...] of antibiotic spacer, implantation of reverse arthroplasty, [id number] Cyrus Polk M.D. CT CT Job ID: [id number] documented in this encounter Plan of Treatment [...] Organization Address City/State/ZIP Code Phon e Number [facility] - [address] [place] [address] 05 [facility] [place] [address] Laboratories-[facility] 200 [facility] (ABNORMAL) Basic Metabolic Panel (02/26/2022 [...] 02/26/2022 DTL Black/ mL/min/BSA 6:27 PM CDT Guamanian Comment: ----ADDITIONAL INFORMATION---- Estimated GFR calculated using [...] Organization Address City/State/ZIP Code Phon e Number [facility] - [address] [place] [address] 05 [facility] [place] [address] Laboratories-[facility] 200 [facility] (ABNORMAL) CBC with Differential, Blood (02/26/2022 3:47 PM CDT) [facility] gist Method Time Signature Hemoglobin 8.8 (L) [...] Organization Address City/State/ZIP Code Phon e Number [facility] - [address] [place], [place] [address] [facility] [place] [place] [address] Laboratories-[facility] [address] DX Shoulder Left [...] Aerobe / Anaerobe+Susc (02/26/2022 1:00 PM CDT) [facility] Method Time Signature Bacteria Cult, No growth 03/12/2022 DTL Aerobe/Anaerob after 14 2:02 PM CDT e+Susc days of incubation. Specimen Anatomical Collection Method Collection Time Receive d Time (Source) Location / / Volume Laterality Shoulder, Left 02/26/2022 1:00 PM 022 1:41 CDT PM CDT Comment: Specimen Source Site: Tissue 1 Narrative [facility] ([facility] - 03/12/2022 2:02 PM CDT Bacterial Culture: Placed in Bactec aero bic and Bactec anaerobic bottles Cyrus Polk M.D. LAB MICROBIOLOGY - GENERAL O MARY Performing Organization Address City/[facility] Phon e Number [facility] - [address] [place], [place] [address] 05 [facility] [place], [place] [phone] [place] [address] Bacteria Cult, Aerobe / Anaerobe+Susc (02/26/2022 1:00 PM CDT) [facility] Method Time Signature Bacteria Cult, No growth 03/12/2022 DTL Aerobe/Anaerob after 14 2:02 PM CDT e+Susc days of incubation. Specimen Anatomical Collection Method Collection Time Receive d Time (Source) Location / / Volume Laterality Shoulder, Left 02/26/2022 1:00 PM 022 1:38 CDT PM CDT Comment: Specimen Source Site: Tissue 3 Narrative [facility] ([facility] - 03/12/2022 2:02 PM CDT Bacterial Culture: Placed in Bactec aero bic and Bactec anaerobic bottles Cyrus Polk M.D. LAB MICROBIOLOGY - GENERAL O MARY Performing Organization Address City/[facility] Phon e Number [facility] - [address] [place], [place] [address] 05 [facility] DTL [place], [place] [phone] [place] [address] 200 [facility] Bacteria Cult, Aerobe / Anaerobe+Susc (02/26/2022 1:00 PM CDT) Patholo gist Method Time Signature Bacteria Cult, No growth 03/12/2022 DTL Aerobe/Anaerob after 14 2:02 PM CDT e+Susc days of incubation. Specimen Anatomical Collection Method Collection Time Receive d Time (Source) Location / / Volume Laterality Shoulder, Left 02/26/2022 1:00 PM 022 1:36 CDT PM CDT Comment: Specimen Source Site: Tissue 2 Narrative [facility] - [facility] - 03/12/2022 2:02 PM CDT Bacterial Culture: Placed in Bactec aero bic and Bactec anaerobic bottles Cyrus Polk M.D. LAB MICROBIOLOGY - GENERAL O RDERABLES Performing Organization Address City/State/ZIP Code Phon e Number [facility] - [address] [place] [address] 05 [facility] [place] [place] [address] Laboratories-[facility] 200 [facility] Surgical Pathology, Frozen Lab (02/26/2022 1:00 PM CDT) Component Value Ref Test Analysis Performed Pathologis t Range Method Time At [facility] 03/01/2022 METH 3:43 PM CDT Participated in [...] permanent sections. ??Grossed by Nan Ledezma M.S., PA([facility]). Block Summary A Left [...] Organization Address City/State/ZIP Code Phon e Number [facility] - [address] [place], [place] [address] [facility] [place] [address] Laboratories-[facility] [address] documented in this [...] mg of calcium, oral, Every 2 hour MA N, indigestion, Starting on Tue02/26/22 at 1451, [...] RBrittonN., ONC)0433 (Given - Provider: Lauren Mckeon R.N.)0721 (Given - Provider: Catalina Mccloud R.N.) 10 [...] as of this encounter Care Teams Tape Weaver Relationship Specialty Start Date End Date Elsewhere, Pcp PCP - General Family Medicine 12/25/21 documented as of this encounter
--- OUTSIDE RECORDS SUMMARY | 2022-11-08 14:01 | XMS_ITS | Encounter Summary ---
:1965 Author Organization [facility] Address [address] [place] [address] Care Team Providers Name Role Phone Elsewhere, Pcp Primary Care Provider Unavailable Reason for Visit Outpatient (Routine) - Closed Specialty Diagnoses / Procedures Referred By Contact Refer red To Contact Infectious Diseases Diagnoses Aftercare Total Shoulder Arthroplasty [facility]ian [address] [place] [address] Referral ID Status Reason Start Date Expiration Date Visits Requ ested Visits Authorized [id number] Closed 01/01/2022 01/01/2023 1 1 Encounter Details Date Type Department Care Team Description 02/25/2022 Comprehensive Visit Section of Christiano Nixon M.D. 200 [place] [phone] Cavalry Scout Antibiotic Treatment (Primary Dx); Infectious Diseases Russell Santos M.D. 200 [place] [phone] Infection Shoulder Prosthesis Subsequent ; in [place], Direct Infecti on Of Left Shoulder In Infectious And Parasitic Diseases Classified Elsewhere ([facility]); [place] Aftercare Total Shoulder Art hroplasty [address] [place] [phone] Social History Tobacco Use Types Packs/Day [...] 56 y.o. Birthdate: 1965 Sex: female Address: [address] [place] [phone] Referring Provider: Jose Guadalupe Nixon M.D. REASON [...] resistance on OSH AST. She presented to [facility] (unclear if on antibiotics) for further evaluation given persistent L shoulder pain 08/2021 prompting aspiration (09/25/21) which revealed elevated TNC (40391) with 81% PMNs with cultures positive for [...] patient was subsequently admitted to [facility] for further management. Intraoperative cultures and synovial [...] is consistent with aspiration results from original [facility] evaluation which is likely premium representative of the culprit organism causing her [...] of Infectious Diseases OPAT monitoring program at [phone] after dismissal. Primary service to follow labs while patient is hospitalized. [place] pharmacist to adjust dosing after dismissal 4. [...] 150 mg by mouth every morning. ??? hartrztqww-jlvyrkebzytho-xvgu (ESGIC) 50-325-40 mg per tablet Take 1 [...] Bactec anaerobic bottles Susceptibility Staphylococcus epidermidis SUSCEPTIBILITY, SANDAR (MCG/ML) SUSCEPTIBILITY, BP (MCG/ML) Clindamycin >2 mcg/mL Resistant Daptomycin 0.5 mcg/mL Susceptible Doxycycline <=4 mcg/mL Susceptible Levofloxacin >4 mcg/mL Resistant 1 Linezolid <=2 mcg/mL Susceptible Minocycline <=4 mcg/mL Susceptible Oxacillin <=0.06 mcg/mL Susceptible 2 Rifampin <=0.5 mcg/mL Susceptible 3 Trimethoprim + Sulfamethoxazole >2/38 mcg/mL Resistant Vancomycin 2 mcg/mL Susceptible Component 11 mo ago Resulting Agency CULTURE RESULT??Abnormal?? [facility] CULTURE 1+ Staphylococcus coagulase negative [facility] GRAM STAIN ? 1+ PMNs [facility] GRAM STAIN ? No organisms seen [facility] GRAM STAIN ? 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 Hepatic Function Panel ??? Basic Metabolic Panel Spent 36 minutes in total time both egmg-pe-omkw and non qlle-gl-qixf to face documented in this encounter Plan [...] 02/25/2022 DTL Black/ mL/min/BSA 11:19 AM CDT Azerbaijani Comment: ----ADDITIONAL INFORMATION---- Estimated GFR calculated [...] M.D. LAB BLOOD ADD-ON Performing Organization Address City/State/[facility] Code Phon e Number [facility] - [address] [place] [address] 559 05 [facility] [place] [place] [address] Laboratories-[facility] 200 [facility] Hepatic Function Panel (02/25/2022 10:09 AM CDT) [facility] gist Method Time Signature Bilirubin, [...] MEDICAL CENTER [facility] - [address] [place], [place] [address] [facility] [place] [address] Laboratories-[facility] [address] documented in this encounter Visit Diagnoses Diagnosis Cavalry Scout Antibiotic Treatment - Primary Infection Shoulder Prosthesis Subsequent Direct Infection Of Left Shoulder In Inf ectious And Parasitic Diseases Classified Elsewhere (HCC) Aftercare Total Shoulder Arthroplasty documented in this encounter Additional Health Concerns Assessment Noted Time PHQ-9 Depression Total Score: 16 02/11/2021 12:00 AM C DT documented as of this encounter Care Teams Drug Inspector Relationship Specialty Start Date End Date Elsewhere, Pcp PCP - General Family Medicine 12/25/21 documented as of this encounter
--- OUTSIDE RECORDS SUMMARY | 2022-11-08 14:01 | XMS_ITS | Encounter Summary ---
:1965 Author Organization [facility] Address [address] [place] [address] Care Team Providers Name Role Phone Elsewhere, Pcp Primary Care Provider Unavailable Reason for Referral MRI/CAT/PET Scan (Routine) - Closed Specialty Diagnoses / Procedures Referred By Contact Refer red To Contact Radiology Diagnoses Painful Total Joint Arthroplasty Initial ([facility]) Michael Chino M.D. [facility] Procedures CT Shoulder Left without IV Contrast 200 [place] [address] Referral ID Status Reason Start Date Expiration Date Visits Requ ested Visits Authorized [id number] Closed 02/25/2022 02/25/2023 1 1 Reason for Visit MRI/CAT/PET Scan (Routine) - Closed Specialty Diagnoses / Procedures Referred By Contact Refer red To Contact Radiology Diagnoses Painful Total Joint Arthroplasty Initial ([facility]) Michael Chino M.D. [facility] Procedures CT Shoulder Left without IV Contrast [address] [place] [phone] Referral ID Status Reason Start Date Expiration Date Visits Requ ested Visits Authorized [id number] Closed 02/25/2022 02/25/2023 1 1 Encounter Details Date Type Department Care Team Description 02/25/2022 Hospital Encounter Department of Michael Chino Total Joint Radiology, Severiano Celaya M.D. Arthropl [facility]) [place], [place] [address] [place] [address] Social History Tobacco Use Types Packs/Day Years [...] you attend methodist or Patient refused 2021 synagogue services? Do [...] THC multivit-min/iron/folic/ Take 1 tablet by 0 [id number] (HAIR, SKIN AND mouth daily. NAILS ADVANCED [...] documented as of this encounter Care Teams Construction Grip Relationship Specialty Start Date End Date Elsewhere, Pcp PCP - General Family Medicine 12/25/21 documented as of this encounter
--- OUTSIDE RECORDS SUMMARY | 2022-11-08 14:01 | XMS_ITS | Encounter Summary ---
:1965 Author Organization [facility] Address [address] [place] [address] Care Team Providers Name Role Phone Elsewhere, Pcp Primary Care Provider Unavailable Reason for Referral Outpatient (Routine) - Closed Specialty Diagnoses / Procedures Referred By Contact Refer red To Contact Diagnoses Arthroplasty Total Shoulder Replacement Status Post Left Alfredo Herrera O.P.A.-[facility]. [facility] Procedures DX Shoulder Left Ingrowth Series 5 Views [address] [place] [phone] Referral ID Status Reason Start Date Expiration Date Visits Requ ested Visits Authorized [id number] Closed 02/25/2022 02/25/2023 1 1 Outpatient (Routine) - Closed Specialty Diagnoses / Procedures Referred By Contact Refer red To Contact Orthopedic Surgery Diagnoses Arthroplasty Total Shoulder Replacement Status Post Left Alfredo Herrera [facility] Anh 200 [place] [address] Referral ID Status Reason Start Date Expiration Date Visits Requ ested Visits Authorized [id number] Closed 02/25/2022 02/25/2023 1 1 Scheduling Instructions 6 wk f/u L TSA Reason for Visit Reason Comments Pre-visit Testing Orders Encounter Details Date Type Department Care Team Description 02/25/2022 Clinical Communication Department of Jam, Pre- visit Testing Orthopedic Surgery Cyrus Souza M.D. Orders in [place], [address] [place], [place] [address] [facility] [address] [place], [place] [phone] [address] (Work) [phone] Social History Tobacco Use Types Packs/Day Years [...] you attend sabianism or Patient refused 2021 caodaism services? Do [...] Name Type Priority Associated Diagnoses Order S [facility] Orthopedic Surgery Outpatient Referral Routine Arthroplasty [...] as of this encounter Care Teams Product Safety Specialist Relationship Specialty Start Date End Date Elsewhere, Pcp PCP - General Family Medicine 12/25/21 documented as of this encounter
--- OUTSIDE RECORDS SUMMARY | 2022-11-08 14:01 | XMS_ITS | Encounter Summary ---
:1965 Author Organization [facility] Address [address] [place] [address] Care Team Providers Name Role Phone Elsewhere, Pcp Primary Care Provider Unavailable Encounter Details Date Type Department Care Team Description 02/26/2022 Clinical Communication [facility] Pharmacy Blanca Galan Eisenberg C.Ph.T. 201 [facility] [phone] [place], [place] (Work) [phone] Social History Tobacco Use [...] you attend uatsdin or Patient refused 2021 bahai services? Do [...]
--- OUTSIDE RECORDS SUMMARY | 2022-11-08 14:02 | XMS_ITS | Encounter Summary ---
:1965 Author Organization [facility] Address 200 [place] [address] Care Team Providers Name Role Phone Elsewhere, Pcp Primary Care Provider Unavailable Reason for Referral Outpatient (Routine) - Closed Specialty Diagnoses / Procedures Referred By Contact Refer red To Contact Infectious Diseases Diagnoses Aftercare Total Shoulder Arthroplasty Jose Guadalupe Nixon [place] M.D. 200 [place] [address] Referral ID Status Reason Start Date Expiration Date Visits Requ ested Visits Authorized [id number] Closed 01/01/2022 01/01/2023 1 1 H MAKER Reason for Visit Reason Comments OPAT Post Hospital Follow-up Encounter Details Date Type Department Care Team Description 01/01/2022 Clinical Communication [facility] MATTHEW Nixon; Post Hospital 200 [facility] Jose Guadalupe Garcia M.D. Follow-up [place], [place] 200 [facility] [phone] [place] [address] Social History Tobacco Use Types Packs/Day Years [...] Name Type Priority Associated Diagnoses Order S [facility] Infectious Disease Outpatient Routine Aftercare Total [...] LAB BLOOD ADD-ON Performing Organization Address City/State/[facility] Phon e Number [facility] - [address] [place] [address] [place] [phone] [address] CRP (C-Reactive Protein) (02/25/2022 10:09 AM CDT) P athologist Signature C-Reactive <3.0 <=8.0 mg/L 02/25/2022 DTL Protein (CRP), 11:34 AM CDT S Specimen Anatomical Collection Method Collection Time Receive d Time (Source) Location / / Volume Laterality Blood (Blood, 02/25/2022 10:09 02/25/2022 Venous) AM CDT 11:00 AM CDT Jose Guadalupe Nixon M.D. LAB BLOOD ADD-ON Performing Organization Address [facility] Phon e Number [facility] - [address] [place] [address] (ABNORMAL) CBC with Differential, Blood (02/25/2022 [...] [facility] [place] [facility] - [address] [place], [place] [address] [place] [address] Laboratories-[facility] [address] documented in this encounter Visit Diagnoses Diagnosis Aftercare Total Shoulder Arthroplasty - Primary documented in this encounter Additional Health Concerns Assessment Noted Time PHQ-9 Depression Total Score: 16 02/11/2021 12:00 AM C DT documented as of this encounter Care Teams Embossing Clerk Relationship Specialty Start Date End Date Elsewhere, Pcp PCP - General Family Medicine 12/25/21 documented as of this encounter
--- OUTSIDE RECORDS SUMMARY | 2022-11-08 14:02 | XMS_ITS | Encounter Summary ---
:1965 Author Organization [facility] Address [address] [place] [address] Care Team Providers Name Role Phone Elsewhere, Pcp Primary Care Provider Unavailable Reason for Visit Reason Comments OPAT Monitoring Complete Encounter Details Date Type Department Care Team Description 02/12/2022 Clinical Communication Section of Kylie Siddiqui (Monitoring Infectious Diseases M, R.N. Complete) in [facility] [phone] [place] (Work) [address] [place] [phone] Social History Tobacco Use Types Packs/Day Years [...] attend oriental orthodox or Patient refused 2021 jainism services? [...] this encounter Miscellaneous Notes Telephone Encounter - Klyie Siddiqui R.N. - 02/12/2022 2:04 PM CDT SUBJECTIVE CHIEF COMPLAINT / REASON FOR CALL OPAT (Monitoring Complete) Information Discussed Princess, a nurse from [place], called to see if any labs need [...] as of this encounter Care Teams Learning Officer Relationship Specialty Start Date End Date Elsewhere, Pcp PCP - General Family Medicine 12/25/21 documented as of this encounter
--- OUTSIDE RECORDS SUMMARY | 2022-11-08 14:02 | XMS_ITS | Encounter Summary ---
:1965 Author Organization [facility] Address [address] [place] [address] Care Team Providers Name Role Phone Elsewhere, Pcp Primary Care Provider Unavailable Reason for Visit Reason Comments OPAT Normal labs Encounter Details Date Type Department Care Team Description 02/09/2022 Clinical Communication Section of Ruth Eddy (Normal labs) Infectious T, R.N. Diseases in [address] [place] [phone] [place] [address] [place], [place] (Work[place] [phone] Social History Tobacco Use Types Packs/Day Years [...] you attend religion or Patient refused 2021 confucianism services? Do [...] Provider: Dennis TA [facility], phone: [phone], fax: [phone] Labs and site care at [facility], phone: [phone] Antimicrobial(s) currently prescribed: See Med List Hyperlink [...] as of this encounter Care Teams Pharmaceutical Officer Relationship Specialty Start Date End Date Elsewhere, Pcp PCP - General Family Medicine 12/25/21 documented as of this encounter
--- OUTSIDE RECORDS SUMMARY | 2022-11-08 14:02 | XMS_ITS | Encounter Summary ---
:1965 Author Organization [facility] Address [address] [place] [address] Care Team Providers Name Role Phone Elsewhere, Pcp Primary Care Provider Unavailable Reason for Referral Outpatient (Routine) - Authorized Specialty Diagnoses / Procedures Referred By Contact Refer red To Contact Diagnoses Manager Library Antibiotic Treatment Tejal Medley MPAS, P.A.-C., M.S. [address] [place] [phone] Referral ID Status Reason Start Expiration Visits Visits Date Date Requested Authorized [id number] Authorized Patient 02/08/2022 02/08/2023 1 1 Preference Reason for Visit Reason Comments OPAT Care Coordination Encounter Details Date Type Department Care Team Description 02/08/2022 Clinical Communication Section of Desirae Domingo (Care Infectious Diseases M, R.N. Coordination) in [place], [address] [place] [address] [place] [phone] [place], [place] [phone] (Work) [phone] Social History Tobacco Use Types Packs/Day Years [...] you attend mandaen or Patient refused 2021 gnosticist services? Do you belong to any clubs or No 05/17/2022 organizations such as mandaen groups, unions, fraCardiac Guard or athletic groups, or school groups? How [...] 02/08/2022 12:06 PM CDT Maritza calls from [employer] stop date of 02/11 for IV antibiotics. Maritza requests order be faxed to [facility] where patient has labs and PICC site care done. I called the [facility], .Pull PIC order can be faxed to [phone]. documented in this encounter Plan of Treatment Not on filedocumented as of this encounter Visit Diagnoses Diagnosis [facility] Antibiotic Treatment - Primary documented in this encounter Additional Health Concerns Assessment Noted Time PHQ-9 Depression Total Score: 16 02/11/2021 12:00 AM C DT documented as of this encounter Care Teams Advisory Software Engineer Relationship Specialty Start Date End Date Elsewhere, Pcp PCP - General Family Medicine 12/25/21 documented as of this encounter
--- OUTSIDE RECORDS SUMMARY | 2022-11-08 14:02 | XMS_ITS | Encounter Summary ---
:1965 Author Organization [facility] Address [address] [place] [address] Care Team Providers Name Role Phone Elsewhere, Pcp Primary Care Provider Unavailable Reason for Visit Reason Comments OPAT Normal Labs Encounter Details Date Type Department Care Team Description 01/15/2022 Clinical Communication Section of Madhav Rizo (Normal Labs) Infectious Diseases M, M.P.H., in [place] [address] [facility] 200 [place] [phone] Social History Tobacco Use Types Packs/Day Years [...] you attend yarsanism or Patient refused 2021 hoahaoism services? Do [...] Rizo M.P.H., R.N. - 01/15/2022 3:24 PM WAREHOUSE SHIPPER OPAT NOTE Infusion Provider: Dennis [facility] Specialty Infusion Services, phone: [phone], fax: [phone] Labs and site care at [facility], phone: [phone] Antimicrobial(s) currently prescribed: See Med List Hyperlink in note Firm stop date: 02/11/22 Lab results from 01/14/2022 are viewable in the MCR record--listed as External Labs (received via fax, which has been uploaded to Document Viewer/Media) Interpretation and action: The labs were satisfactory and acceptable. No change in plan as per OPAT Practice Guideline. HOUSE SHIPPER documented in this encounter Plan of Treatment [...] C.N.P. LAB BLOOD ADD-ON Performing Organization Address City/[facility]/ZIP Code Phon e Number [facility] [address] [place] [address] Creatinine with Estimated GFR (01/14/2022) athologist Signature EXT Creatinine 0.6 0.5 - 1.5 [place] mg/dL [facility] Specimen (Source) Anatomical Location Collection Method / Collectio n Time Received Time / Laterality Volume Blood (Blood, Venous) Laly Ward APRN, C.N.P. LAB BLOOD ADD-ON Performing Organization Address City/[facility]/ZIP [facility] Phon e Number [facility] [address] [place] [address] (ABNORMAL) CBC with Differential, Blood (01/14/2022) athologist Signature EXT Platelet 406 150 - 450 [place] Count [facility] EXT Hemoglobin 9 (A) 12 - 15.5 [facility] EXT Absolute 3.49 1.7 - 7 [place] Neutrophils [facility] EXT White Blood 5.7 5.0 - 10.0 [place] Cell (WBC) Count [facility] Specimen (Source) Anatomical Location Collection Method / Collectio n Time Received Time / Laterality Volume Blood (Blood, Venous) Narrative This result has an attachment that is no t available. Laly Ward APRN, C.N.P. LAB BLOOD ADD-ON Performing Organization Address City/[facility]/ZIP [facility] Phon e Number [facility] [address] [place] [address] documented in this encounter Visit Diagnoses Not on filedocumented in this encounter Additional Health Concerns Assessment Noted Time PHQ-9 Depression Total Score: 16 02/11/2021 12:00 AM C DT documented as of this encounter Care Teams Computer Systems Engineer Relationship Specialty Start Date End Date Elsewhere, Pcp PCP - General Family Medicine 12/25/21 documented as of this encounter
--- OUTSIDE RECORDS SUMMARY | 2022-11-08 14:02 | XMS_ITS | Encounter Summary ---
:1965 Author Organization [facility] Address 200 [place] [address] Care Team Providers Name Role Phone Elsewhere, Pcp Primary Care Provider Unavailable Encounter Details Date Type Department Care Team Description 01/01[facility]2022 [facility], Eighth Floor 201 [place] [address] Social History Tobacco Use [...] you attend temple or Patient refused 2021 christian services? Do [...] of this encounter Care Teams Coding Compliance Specialist Relationship Specialty Start Date End Date Elsewhere, Pcp PCP - General Family Medicine 12/25/21 documented as of this encounter
--- OUTSIDE RECORDS SUMMARY | 2022-11-08 14:02 | XMS_ITS | Encounter Summary ---
:1965 Author Organization [facility] Address [address] [place] [address] Care Team Providers Name Role Phone Elsewhere, Pcp Primary Care Provider Unavailable Encounter Details Date Type Department Care Team Description 01/08/2022 Orders Only Pharmacy Prior Auth RO Elsewhere, Pcp [phone] Social History Tobacco Use Types Packs/Day Years [...] you attend jew or Patient refused 2021 jain services? Do [...] as of this encounter Care Teams Marine Tower Operator Relationship Specialty Start Date End Date Elsewhere, Pcp PCP - General Family Medicine 12/25/21 documented as of this encounter
--- OUTSIDE RECORDS SUMMARY | 2022-11-08 14:02 | XMS_ITS | Encounter Summary ---
:1965 Author Organization [facility] Address [address] [place] [address] Care Team Providers Name Role Phone Elsewhere, Pcp Primary Care Provider Unavailable Reason for Visit Outpatient (Routine) - Closed Specialty Diagnoses / Procedures Referred By Contact Refer red To Contact Orthopedic Surgery Diagnoses Pain Shoulder Left Alfredo Herrera, [facility] O.P.A.-C. [address] [place] [address] Referral ID Status Reason Start Date Expiration Date Visits Requ ested Visits Authorized [id number] Closed 12/30/2021 12/30/2022 1 1 Encounter Details Date Type Department Care Team Description 02/25/2022 Office Visit Department of Orthopedic Cyrus Polk , Pain Shoulder Left Surgery in [facility] [address] [facility] [address] [place] [phone] Social History Tobacco Use Types Packs/Day Years [...] you attend spiritism or Patient refused 2021 congregation services? Do you belong to any clubs or No 05/17/2022 organizations such as spiritism groups, [employer], [employer] or athletic groups, or school groups? How [...] involve the use of a medical records analyst made by a company withPoundworldvidya I or one of my partners have collaborated to design, develop, or improve orthopedic implants, instruments, or products. Both the [facility] and the individual surgeons involved receive royalty payments from the use of those specific devices at other institutions, but no royalties or any other payments are paid for the use of those devices with any [facility] patient. The clinical rationale for the use of those devices as well as the availability and applicability of alternative devices was reviewed. He understands that the final decision for the use of a specific medical records analyst often is made at the time [...] documented as of this encounter Care Teams String Top Sealer Relationship Specialty Start Date End Date Elsewhere, Pcp PCP - General Family Medicine 12/25/21 documented as of this encounter
--- OUTSIDE RECORDS SUMMARY | 2022-11-08 14:02 | XMS_ITS | Encounter Summary ---
:1965 Author Organization [facility] Address [address] [place] [address] Care Team Providers Name Role Phone Elsewhere, Pcp Primary Care Provider Unavailable Encounter Details Date Type Department Care Team Description 01/08/2022 Clinical Communication Pharmacy Prior Auth ОЛЬГА Carrera M.D. [phone] Social History Tobacco Use Types Packs/Day Years [...] you attend spiritism or Patient refused 2021 orthodox services? Do [...] Camelia CINTRON. Thank you, The OPPA Team VERY SPECIALIST documented in this encounter Plan of Treatment Not on filedocumented as of this encounter Visit Diagnoses Not on filedocumented in this encounter Additional Health Concerns Assessment Noted Time PHQ-9 Depression Total Score: 16 02/11/2021 12:00 AM C DT documented as of this encounter Care Teams Hospitalist Program Director Relationship Specialty Start Date End Date Elsewhere, Pcp PCP - General Family Medicine 12/25/21 documented as of this encounter
--- OUTSIDE RECORDS SUMMARY | 2022-11-08 14:02 | XMS_ITS | Encounter Summary ---
:1965 Author Organization [facility] Address 200 [place] [address] Care Team Providers Name Role Phone Elsewhere, Pcp Primary Care Provider Unavailable Reason for Visit Reason Comments OPAT Intervention Encounter Details Date Type Department Care Team Description 01/07/2022 Clinical Communication Section of MATTHEW Tolbert (Intervention) Infectious Diseases [facility] [phone] 200 [facility] (Work) [place] [address] Social History Tobacco Use Types Packs/Day Years [...] you attend confucianist or Patient refused 2021 anglican services? Do [...] Dandy Reyes, Pharm.D. - 01/12/2022 9:38 AM GUEST RELATIONS OFFICER Pertinent labs and antimicrobial regimen as [...] >0.3 mg/dL and absolute value >1.0 mg/dL. T RELATIONS OFFICER Telephone Encounter - Steven Dennis R.N. - 01/12/2022 9:13 AM CST OPAT NOTE Infusion Provider: Dennis [facility], phone: [phone], fax: [phone] Labs and site care at [facility], phone: [phone] Antimicrobial(s) currently prescribed: See Med List Hyperlink in note Firm stop date: 02/11/22 Lab results from 01/07/22 are viewable in the MCR record--listed as External Labs (received via fax, which has been uploaded to Document Viewer/Media) Interpretation and action: Will send to the OPAT pharmacist to review the creatinine, which has decreased >30%. Alk phos wasnot drawn. T RELATIONS OFFICER documented in this encounter Plan of Treatment Not on filedocumented as of this encounter Procedures Procedure Name Priority Date/Time Associated Comments Diagnosis CBC WITH DIFFERENTIAL, B Routine 01/07/2022 2:30 Results for this PM GUEST RELATIONS OFFICER procedure are i n the results section. ALANINE AMINOTRANSFERASE Routine 01/07/2022 2:30 Results for this (ALT), S/P PM GUEST RELATIONS OFFICER procedure are i n the results section. CREATININE WITH EGFR, Routine 01/07/2022 2:30 Res ults for this S/P PM GUEST RELATIONS OFFICER procedure are i n the results section. documented in this encounter Results ALT (Alanine Aminotransferase) (01/07/2022 2:30 PM GUEST RELATIONS OFFICER) P athologist Signature EXT ALT 10 4 - 35 [facility]) Specimen (Source) Anatomical Location Collection Method / Collectio n Time Received Time / Laterality Volume Blood (Blood, Venous) Laly Ward APRN, C.N.P. LAB BLOOD ADD-ON Performing Organization Address City/[facility] e [facility], [address] [place] [address] [facility]) Creatinine with Estimated GFR (01/07/2022 2:30 PM GUEST RELATIONS OFFICER) Analysis Performed At Patho logist Time Signature EXT Creatinine 0.5 0.5 - 1.5 [place] mg/dL [facility]) Specimen (Source) Anatomical Location Collection Method / Collectio n Time Received Time / Laterality Volume Blood (Blood, Venous) Narrative This result has an attachment that is no t available. Laly Ward APRN, C.N.P. LAB BLOOD ADD-ON Performing Organization Address City/[facility] Phon e Number [facility], [address] [place] [phone] [facility]) (ABNORMAL) CBC with Differential, Blood (01/07/2022 2:30 PM GUEST RELATIONS OFFICER) [facility] gist Method Time Signature EXT Platelet 349 150 - 450 [facility], [facility]) EXT Eosinophils 0.28 0 - 0.5 [facility]) EXT Hemoglobin 8.7 (A) 12 - 15.5 [facility], [facility]) EXT Absolute 3.19 1.7 - 7 [place] Neutrophils [facility], [facility]) EXT White Blood 5.4 5.0 - [place] Cell (WBC) 10.0 [facility]) Specimen (Source) Anatomical Location Collection Method / Collectio n Time Received Time / Laterality Volume Blood (Blood, Venous) Narrative This result has an attachment that is no t available. Laly Ward APRN C.N.P. LAB BLOOD ADD-ON Performing Organization Address City/State/ZIP Code Phon e Number [facility], [address] [place] [address] [facility]) documented in this encounter Visit Diagnoses Not on filedocumented in this encounter Additional Health Concerns Assessment Noted Time PHQ-9 Depression Total Score: 16 02/11/2021 12:00 AM C DT documented as of this encounter Care Teams Strip Mill Operator Relationship Specialty Start Date End Date Elsewhere, Pcp PCP - General Family Medicine 12/25/21 documented as of this encounter
--- OUTSIDE RECORDS SUMMARY | 2022-11-08 14:02 | XMS_ITS | Encounter Summary ---
:1965 Author Organization [facility] Address [address] [place] [address] Care Team Providers Name Role Phone Elsewhere, Pcp Primary Care Provider Unavailable Reason for Visit Reason Comments OPAT Intervention Encounter Details Date Type Department Care Team Description 01/28/2022 Clinical Communication Section of Ruth Eddy (Intervention Infectious T, R.N. ) Diseases in [address] [place] [phone] [place] [address] [place], [place] (Work) [phone] Social History Tobacco Use Types Packs/Day Years [...] you attend jain or Patient refused 2021 hoahaoism services? Do [...] are for now to obtain ALP trend. RVISOR OF RESEARCH Telephone Encounter - Desirae Domingo RBrittonN. - 02/01/2022 12:11 PM CST Maritza calls from [place] regarding Alk phos from 01/28. It is greater than 1.5 the upper limit of normal. RVISOR OF RESEARCH Telephone Encounter - Su Greene, Pharm.D., R.Ph. - 01/29/2022 8:49 AM CST Reviewed WBC trend including WBC on 01/28, no changes at this time, see note from my colleague Jennifer Roca for details. RVISOR OF RESEARCH Telephone Encounter - Ruth Eddy R.N. - 01/29/2022 8:14 AM CST OPAT NOTE ?? Infusion Provider: [facility] [address] [facility] Specialty Infusion Services, phone: [phone], fax: [phone] Labs and site care at [facility], phone: [phone] Antimicrobial(s) currently prescribed: See Med List Hyperlink in note Firm stop date: 02/11/22 ?? Lab results from are viewable in the MCR record--listed as External Labs (received via fax, which has been uploaded to Document Viewer/Media) ?? Interpretation and action: The labs were reviewed. WBC and ANC are improving. I will send this to the provider for review. RVISOR OF RESEARCH Telephone Encounter - Jennifer Roca Pharm.D., R.Ph. - 01/28/2022 10:21 AM SUPERVISOR OF RESEARCH Pertinent labs and antimicrobial regimen as indicated [...] time. For monitoring: continue weekly OPAT labs. RVISOR OF RESEARCH Telephone Encounter - Ruth Eddy RBrittonN. - 01/28/2022 9:40 AM CST OPAT NOTE Infusion Provider: [facility] [address] Specialty Infusion Services, phone: [phone], fax: [phone] Labs and site care at [facility], phone: [phone] Antimicrobial(s) currently prescribed: See Med List Hyperlink in note Firm stop date: 02/11/22 Lab results from 01/21/2022 are viewable in the MCR record--listed as External Labs (received via fax, which has been uploaded to Document Viewer/Media) Interpretation and action: The labs were reviewed. WBC is 3.6 and ANC is 1.42. Alk Phos was not done. [facility]. Orders were sent to [facility] that included alk phos that will be drawn today, 01-28-2022. RVISOR OF RESEARCH documented in this encounter Plan of Treatment Not on filedocumented as of this encounter Procedures Procedure Name Priority Date/Time Associated Comments Diagnosis CBC WITH DIFFERENTIAL, B Routine 01/28/2022 3:00 Results for this PM SUPERVISOR OF RESEARCH procedure are i n the results section. ALANINE AMINOTRANSFERASE Routine 01/28/2022 3:00 Results for this (ALT), S/P PM SUPERVISOR OF RESEARCH procedure are i n the results section. ALKALINE PHOSPHATASE, Routine 01/28/2022 3:00 Res ults for this S/P PM SUPERVISOR OF RESEARCH procedure are i n the results section. CREATININE WITH EGFR, Routine 01/28/2022 3:00 Res ults for this S/P PM SUPERVISOR OF RESEARCH procedure are i n the results section. [...] Results ALT (Alanine Aminotransferase) (01/28/2022 3:00 PM SUPERVISOR OF RESEARCH) athologist Signature EXT ALT 20 4 - 35 [facility] Specimen (Source) Anatomical Location Collection Method / Collectio n Time Received Time / Laterality Volume Blood (Blood, Venous) Laly Ward APRN C.N.P. LAB BLOOD ADD-ON Performing Organization Address City/State/ZIP Code Phon e Number [facility] (ABNORMAL) Alkaline Phosphatase (01/28/2022 3:00 PM SUPERVISOR OF RESEARCH) athologist Signature EXT Alkaline 97 (A) 40 - 50 [facility] Phosph[facility] LAB Specimen (Source) Anatomical Location Collection Method / Collectio n Time Received Time / Laterality Volume Blood (Blood, Venous) Laly Ward APRN, C.N.P. LAB BLOOD ADD-ON Performing Organization Address City/State/ZIP Code Phon e Number [facility] Creatinine with Estimated GFR (01/28/2022 3:00 PM SUPERVISOR OF RESEARCH) athologist Signature EXT Creatinine 0.6 0.5 - [...] CBC with Differential, Blood (01/28/2022 3:00 PM SUPERVISOR OF RESEARCH) Analysis Performed At Patho logist Time Signature [...] documented as of this encounter Care Teams Sccm Administrator Relationship Specialty Start Date End Date Elsewhere, Pcp PCP - General Family Medicine 12/25/21 documented as of this encounter
--- OUTSIDE RECORDS SUMMARY | 2022-11-08 14:02 | XMS_ITS | Encounter Summary ---
:1965 Author Organization [facility] Address 200 [place] [address] Care Team Providers Name Role Phone Elsewhere, Pcp Primary Care Provider Unavailable Encounter Details Date Type Department Care Team Description 01/01/2022 Episode Changes Section of Infectious Lin Tadeo Diseases in [place], (Work ) [place] [address] [place] [address] Social History Tobacco Use Types Packs/Day [...] attend roman catholic or Patient refused 2021 sabianist services? [...] documented as of this encounter Care Teams Plywood Factory Worker Relationship Specialty Start Date End Date Elsewhere, Pcp PCP - General Family Medicine 12/25/21 documented as of this encounter
--- OUTSIDE RECORDS SUMMARY | 2022-11-08 14:02 | XMS_ITS | Encounter Summary ---
:1965 Author Organization [facility] Address [address] [place] [address] Care Team Providers Name Role Phone Elsewhere, Pcp Primary Care Provider Unavailable Reason for Visit Reason Comments OPAT Lab request Encounter Details Date Type Department Care Team Description 01/26/2022 Clinical Communication Section of Ruth Eddy (Lab request) Infectious T, R.N. Diseases in [address] [place] [phone] [place] [address] [place], [place] (Work) [phone] Social History Tobacco Use Types Packs/Day Years [...] you attend restorationism or Patient refused 2021 adventist services? Do [...] Eddy RRebekah. - 01/26/2022 4:13 PM CST [facility], phone: [phone] was called and message left to fax us lab results. Our fax and phone number was given. TRUCTION OR LEAK GANG LABORER documented in this encounter Plan of Treatment Not on filedocumented as of this encounter Visit Diagnoses Not on filedocumented in this encounter Additional Health Concerns Assessment Noted Time PHQ-9 Depression Total Score: 16 02/11/2021 12:00 AM C DT documented as of this encounter Care Teams Vice Principal Relationship Specialty Start Date End Date Elsewhere, Pcp PCP - General Family Medicine 12/25/21 documented as of this encounter
--- OUTSIDE RECORDS SUMMARY | 2022-11-08 14:02 | XMS_ITS | Encounter Summary ---
:1965 Author Organization [facility] Address [address] [place] [address] Care Team Providers Name Role Phone Elsewhere, Pcp Primary Care Provider Unavailable Reason for Visit Reason Comments Labs Only Encounter Details Date Type Department Care Team Description 02/05/2022 Documentation Section of Infectious Amna Kaur , Labs Only Diseases in [facility] 200 [facility] 200 [place] [phone] Social History Tobacco Use Types Packs/Day Years [...] PM CST Labs entered at this time. E RAIL CLEANER documented in this encounter Plan of Treatment Not on filedocumented as of this encounter Procedures Procedure Name Priority Date/Time Associated Comments Diagnosis CBC WITH DIFFERENTIAL, B Routine 02/04/2022 3:06 Results for this PM GUIDE RAIL CLEANER procedure are i n the results section. ALANINE AMINOTRANSFERASE Routine 02/04/2022 3:06 Results for this (ALT), S/P PM GUIDE RAIL CLEANER procedure are i n the results section. ALKALINE PHOSPHATASE, Routine 02/04/2022 3:06 Res ults for this S/P PM GUIDE RAIL CLEANER procedure are i n the results section. CREATININE WITH EGFR, Routine 02/04/2022 3:06 Res ults for this S/P PM GUIDE RAIL CLEANER procedure are i n the results section. documented in this encounter Results ALT (Alanine Aminotransferase) (02/04/2022 3:06 PM GUIDE RAIL CLEANER) P athologist Signature EXT ALT 20 4 - 35 OTHER (SPECIFY IN CABLE REPAIRER) Specimen (Source) Anatomical Location Collection Method / Collectio n Time Received Time / Laterality Volume Blood (Blood, Venous) Resulting Agency Comment [facility] Abinash Madeleine M.D. LAB BLOOD ADD-ON Performing Organization Address City/State/ZIP Code Phon e Number OTHER (SPECIFY IN CABLE REPAIRER) OTHER (SPECIFY IN CABLE REPAIRER) N/A Alkaline Phosphatase (02/04/2022 3:06 PM GUIDE RAIL CLEANER) P athologist Signature EXT Alkaline 102 40 - 150 OTHER (SPECIFY Phosphatase IN CABLE REPAIRER) Specimen (Source) Anatomical Location Collection Method / Collectio n Time Received Time / Laterality Volume Blood (Blood, Venous) Resulting Agency Comment [facility] Gucci Salvador M.D. LAB BLOOD ADD-ON Performing Organization Address City/[facility] Phon e Number OTHER (SPECIFY IN CABLE REPAIRER) OTHER (SPECIFY IN CABLE REPAIRER) N/A Creatinine with Estimated GFR (02/04/2022 3:06 PM GUIDE RAIL CLEANER) P athologist Signature EXT Creatinine 0.7 0.5 - 1.5 OTHER (SPECIFY mg/dL IN CABLE REPAIRER) Specimen (Source) Anatomical Location Collection Method / Collectio n Time Received Time / Laterality Volume Blood (Blood, Venous) Resulting Agency Comment [facility] Gucci Salvador M.D. LAB BLOOD ADD-ON Performing Organization Address City/[facility]/ZIP [facility] Phon e Number OTHER (SPECIFY IN CABLE REPAIRER) OTHER (SPECIFY IN CABLE REPAIRER) N/A (ABNORMAL) CBC with Differential, Blood (02/04/2022 3:06 PM GUIDE RAIL CLEANER) P athologist Signature EXT Platelet 253 150 - 450 OTHER Count (SPECIFY IN CABLE REPAIRER) EXT Hemoglobin 9.1 (A) 12 - 15.5 OTHER (SPECIFY IN CABLE REPAIRER) EXT White Blood 4.0 (A) 5.0 - 10.0 OTHER Cell (WBC) (SPECIFY IN Count CABLE REPAIRER) Specimen (Source) Anatomical Location Collection Method / Collectio n Time Received Time / Laterality Volume Blood (Blood, Venous) Narrative This result has an attachment that is no t available. Resulting Agency Comment [facility] Gucci Salvador M.D. LAB BLOOD ADD-ON Performing Organization Address City/[facility]/ZIP [facility] Phon e Number OTHER (SPECIFY IN CABLE REPAIRER) OTHER (SPECIFY IN CABLE REPAIRER) N/A documented in this encounter Visit Diagnoses Not on filedocumented in this encounter Additional Health Concerns Assessment Noted Time PHQ-9 Depression Total Score: 16 02/11/2021 12:00 AM C DT documented as of this encounter Care Teams Clarifying Plant Operator Relationship Specialty Start Date End Date Elsewhere, Pcp PCP - General Family Medicine 12/25/21 documented as of this encounter
--- OUTSIDE RECORDS SUMMARY | 2022-11-08 14:02 | XMS_ITS | Encounter Summary ---
:1965 Author Organization [facility] Address [address] [place] [address] Care Team Providers Name Role Phone Elsewhere, Pcp Primary Care Provider Unavailable Encounter Details Date Type Department Care Team Description 01/05/2022 Clinical Communication Section of Infectious Ed , [facility] in [facility], SENIOR FRONT END ENGINEER, C.N.P. [place] 200 [facility] 200 [place] [phone] [phone] Social History Tobacco Use Types Packs/Day Years [...] you attend anabaptist or Patient refused 2021 pentecostal services? Do [...] Ward APRN, C.N.P. - 01/05/2022 2:17 PM PULMONARY SPECIALIST Left shoulder synovial fluid culture from 12/30 has been reported for growth of oxacillin sensitive Staphylococcus epidermidis. No change recommended to the patient's current regimen of ceftriaxone. ONARY SPECIALIST Telephone Encounter - Laly Ward APRN, C.N.P. - 01/05/2022 2:17 PM PULMONARY SPECIALIST ----- Message from Su Greene, Pharm.D., R.Ph. sent at 01/05/2022 9:51 AM PULMONARY SPECIALIST ----- Patient with shoulder infection (with previous [...] changes please message RST [facility] PHARMACIST pool. If urgent, page [phone] M-F 9am-5 pm ONARY SPECIALIST documented in this encounter Plan of Treatment Not on filedocumented as of this encounter Visit Diagnoses Not on filedocumented in this encounter Additional Health Concerns Assessment Noted Time PHQ-9 Depression Total Score: 16 02/11/2021 12:00 AM C DT documented as of this encounter Care Teams New Order Clerk Relationship Specialty Start Date End Date Elsewhere, Pcp PCP - General Family Medicine 12/25/21 documented as of this encounter
--- OUTSIDE RECORDS SUMMARY | 2022-11-08 14:02 | XMS_ITS | Encounter Summary ---
:1965 Author Organization [facility] Address [address] [place] [address] Care Team Providers Name Role Phone Elsewhere, Pcp Primary Care Provider Unavailable Encounter Details Date Type Department Care Team Description 01/01/2022 Clinical Communication [facility] Pharmacy Sapna Dodge C.Ph.T. 201 [facility] [phone] [place], [place] ([facility]) [phone] Social History Tobacco Use Types [...] you attend mormonism or Patient refused 2021 restoration services? Do [...] as of this encounter Care Teams Social Media Marketing Analyst Relationship Specialty Start Date End Date Elsewhere, Pcp PCP - General Family Medicine 12/25/21 documented as of this encounter
--- OUTSIDE RECORDS SUMMARY | 2022-11-08 14:02 | XMS_ITS | Encounter Summary ---
:1965 Author Organization [facility] Address [address] [place] [address] Care Team Providers Name Role Phone Elsewhere, Pcp Primary Care Provider Unavailable Reason for Visit Reason Comments OPAT Care Coordination Encounter Details Date Type Department Care Team Description 01/22/2022 Clinical Communication Section of Steven Dennis (Care Infectious Diseases E, R.N. Coordination) in [place], [facility] [place], [place] [address] [place] [phone] [place], [place] [phone] (Work) [phone] Social History Tobacco Use Types Packs/Day Years [...] IR. ??Is she able to come to [place] for IR PICC placement? ??If not, we'll [...] I spoke to Carolynn, the nurse at [facility]. She spoke to their wound care nurse and she would liketo try some different dressings first before they move the PICC to the chest. They cannot place a PICC in the chest in [place], so if needed, the patient would have to come to [place]. The patientwill be there at 2 pm today. She will call back with the patient so we all can come up with a plan together. Addendum: We missed a call from Carolynn, infusion nurse at [facility]. Her message stated that PICCsite care was performed and the site looks better. The wound care team has a plan and is hoping thatshe can keep her current PICC. RICT SALES LEADER Telephone Encounter - Tejal Rudolph R.N. - 01/22/2022 4:46 PM DISTRICT SALES LEADER I have been unable to reach the patient, but I notified nurse Carolynn at [facility] of Dr. Boris Chaidez's recommendation, that they could try moving the line to the other arm and use a midline but avoid a chest PICC. I faxed the order for midline placement. Nurse Carolynn at [place] questioned whether the midline could be moved to the other (left) arm, because patient wears a sling on that arm. RICT SALES LEADER Telephone Encounter - Steven Dennis R.N. - [...] get a special dressing from [facility] to use, but it doesn't seem to be helping. Dressing was changed at [facility] today and they applied some guaze to help with the drainage. 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
--- OUTSIDE RECORDS SUMMARY | 2022-11-08 14:03 | XMS_ITS | Encounter Summary ---
:1965 Author Organization [facility] Address [address] [place] [address] Care Team Providers Name Role Phone Elsewhere, Pcp Primary Care Provider Unavailable Reason for Referral Outpatient (Routine) - Closed Specialty Diagnoses / Procedures Referred By Contact Refer red To Contact Orthopedic Surgery Diagnoses Pain Shoulder Left [facility] [address] [place] [phone] Referral ID Status Reason Start Date Expiration Date Visits Requ ested Visits Authorized [id number] Closed 12/30/2021 12/30/2022 1 1 IFIED MEDICINE AIDE Reason for Visit Reason Comments Pre-visit Testing Orders Encounter Details Date Type Department Care Team Description 12/29/2021 Clinical Communication Department of Jam, Pre- visit Testing Orthopedic Surgery Cyrus Souza M.D. Orders in [place], [address] [place] [address] [place] [address] [place], [place] [phone] (Work) [phone] Social History Tobacco Use Types Packs/Day Years [...] attend oriental orthodox or Patient refused 2021 congregation services? Do you belong to any clubs or No 05/17/2022 organizations such as oriental orthodox groups, unions, fraCrownBio or athletic groups, or school groups? How [...] 12/29/2021 1:06 PM CST Please sign order IFIED MEDICINE AIDE documented in this encounter Plan of Treatment Scheduled Referrals Name Type Priority Associated Order Schedule Diagnoses Orthopedic Surgery Outpatient Referral Routine Pain Shoulder L eft Expected: Pre Op (clinic) 02/24/2022, Expires: 03/28/2023 documented as of this encounter Results SARS CoV-2 RNA, PCR, Varies Asymptomatic (02/25/2022 11:09 AM CDT) [facility] Method Time Signature SARS CoV-2 Swab, 02/25/2022 [...] Drug Administration an d is used per principal automation engineer's instructions. Performance characteristics were verified by [facility] in a manner consistent with CLIA requirements. Visit the CDC website: https://www.cdc.g ov/coronavirus/ for the most recent guidelines on Coron avirus testing. Fact Sheet for Healthcare Providers: https://www.fda.gov/media/732677/downloa d Fact Sheet for Patients: https://www.fda.gov/media/977746/downloa d Specimen Anatomical Collection Method Collection Time Receive d Time (Source) Location / / Volume Laterality Varies 02/25/2022 11:09 02/25/2022 (Nasopharynx) AM CDT 11:40 AM CDT Alfredo Kamara LAB MICROBIOLOGY - GENERAL O RDERABLES Performing Organization Address City/State/ZIP Code Phon e Number [facility] - 200 [place], [place] [address] [facility] [address] Laboratories-[facility] [address] documented in this encounter Visit Diagnoses Diagnosis Pain Shoulder Left - Primary documented in this encounter Additional Health Concerns Infection Onset Date Last Indicated Resolved Time COVID19 Pending 12/29/2021 12/29/2021 12/29/2021 4:20 PM CERTIFIED MEDICINE AIDE Assessment Noted Time PHQ-9 Depression Total Score: 16 02/11/2021 12:00 AM C DT documented as of this encounter Care Teams Credit Assessment Analyst Relationship Specialty Start Date End Date Elsewhere, Pcp PCP - General Family Medicine 12/25/21 documented as of this encounter
--- OUTSIDE RECORDS SUMMARY | 2022-11-08 14:03 | XMS_ITS | Encounter Summary ---
:1965 Author Organization [facility] Address [address] [place] [address] Care Team Providers Name Role Phone Unavailable Primary Care Provider Unavailable Encounter Details Date Type Department Care Team Description 11/25/2021 Clinical Communication Department of Yesenia, Guillermo Alvarado, Neurologic Surgery in [place], [place] [address] [place] [address] [address] [place] [phone] [phone] Social History Tobacco Use Types Packs/Day Years [...] be seen through ED, or local provider/neurology. GE OPERATOR documented in this encounter Plan of Treatment Not on filedocumented as of this encounter Visit Diagnoses Not on filedocumented in this encounter Additional Health Concerns Assessment Noted Time PHQ-9 Depression Total Score: 16 02/11/2021 12:00 AM C DT documented as of this encounter
--- OUTSIDE RECORDS SUMMARY | 2022-11-08 14:03 | XMS_ITS | Encounter Summary ---
:1965 Author Organization [facility] Address [address] [place] [address] Care Team Providers Name Role Phone Elsewhere, Pcp Primary Care Provider Unavailable Reason for Visit Reason Comments Pre-op Exam Outpatient (Routine) - Closed Specialty Diagnoses / Procedures Referred By Contact Refer red To Contact Orthopedic Surgery Diagnoses Preoperative Exam Painful Total Joint Arthroplasty Initial (HCC) Alfredo Herrera [facility] [address] [place] [phone] Referral ID Status Reason Start Date Expiration Date Visits Requ ested Visits Authorized [id number] Closed 10/13/2021 10/13/2022 1 1 Encounter Details Date Type Department Care Team Description 12/29/2021 Office Visit Department of Cyrus Polk Pain Shoulde r Left (Primary Dx); Orthopedic Surgery in Lilian Souza Preoperative Exam; [place], [place] [address] [place] [address] Painful Total Joint Arthroplasty Initial (HCC) [address] [place] [phone] Social History Tobacco Use Types Packs/Day Years [...] you attend gnosticism or Patient refused 2021 christian services? Do [...] involve the use of a medical lab scientist made by a Zuoravidya I or one of my partners have collaborated to design, develop, or improve orthopedic implants, instruments, or products. Both the [facility] and the individual surgeons involved receive royalty payments from the use of those specific devices at other institutions, but no royalties or any other payments are paid for the use of those devices with any [facility] patient. The clinical rationale for the use of those devices as well as the availability and applicability of alternative devices was reviewed. He understands that the final decision for the use of a specific medical lab scientist often is made at the time of surgery. All of his questions were answered; he understands and agrees with my approach to device selection and wants to proceed. 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
--- OUTSIDE RECORDS SUMMARY | 2022-11-08 14:03 | XMS_ITS | Encounter Summary ---
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 [address] [place] [phone] Referral ID Status Reason Start Date Expiration Date Visits V isits Requested Authorized [id number] Authorized 01/01/2022 01/01/2023 1 1 LINER MAKER Encounter Details Date Type Department Care Team Description 12/30/2021 - Hospital Encounter [facility] Kulwant Polk M.D. [address] [place] [phone] Pain Shoulder Left (Primary Dx); 01/01/2022 Hospital, Kennedi Roa MPAS, P.A.-C. [address] [place] [phone] Shoulder Joint Disorder Left; [facility] Direct Inf ection Of Left Shoulder In Infectious And Parasitic Diseases Classified Elsewhere (HCC) Building, Eighth Floor [address] [place] [phone] Social History Tobacco Use Types Packs/Day Years [...] Comments Blood Pressure 141/91 01/01/2022 4:26 PM BOOT LINER MAKER Pulse 95 01/01/2022 4:26 PM BOOT LINER MAKER Temperature 36.8 ??C (98.2 ??F) 01/01/2022 4:26 PM BOOT LINER MAKER Respiratory Rate 18 01/01/2022 4:26 PM BOOT LINER MAKER Oxygen Saturation 93% 01/01/2022 4:26 PM BOOT LINER MAKER Inhaled Oxygen Concentration - - Weight 69.9 kg (154 lb 1.6 12/30/2021 11:22 AM oz) BOOT LINER MAKER Height 150.5 cm (4' 11.25) 12/30/2021 11:22 AM no shoe s/boots BOOT LINER MAKER Body Mass Index 30.86 12/30/2021 11:22 AM BOOT LINER MAKER documented in this encounter Discharge Summaries Dario Carrera M.D. - 01/01/2022 8:50 AM CST DISCHARGE SUMMARY BRIEF OVERVIEW Hospital: [facility] Discharge Provider: Cyrus Polk M.D. [...] were provided to the patient and caregiver(s). LINER MAKER documented in this encounter Discharge Instructions AttachmentsThe following attachments cannot be sent through Care Everywhere. Continuous Nerve-Block Infusion System: Often called a ???pain pump?? (Latvian) documented in this encounter Medications at Time [...] THC multivit-min/iron/folic/ Take 1 tablet by 0 [id number] (HAIR, SKIN AND mouth daily. NAILS ADVANCED [...] when she got up for the day. LINER MAKER Ruth Gonzalez P.T., D.P.T. - 01/01/2022 4:29 [...] mask during therapy session: no Outcome Measures [facility] Inpatient Short Form: -[facility] Basic Mobility (V.2) How much help [...] 3-5 steps with a railing?: A Little AM-[facility] Basic Mobility (V.2) Raw Score: 23 AM-PAC Basic Mobility (V.2) Standardized Score: 50.88 Interpretation: Clinicians answer the AM-[facility] Inpatient Short Form based on observed [...] quad cane since it is not available [facility] by prescription. Barriers to Discharge Home: [...] (min): 23 min Ruth Gonzalez P.T., D.P.T. LINER MAKER Elvira Duncan R.N. - 01/01/2022 3:21 PM [...] educational pamphlet Continuous Nerve-Block Infusion System ( [id number]).?? Discussed at home removal of nervecatheter, signs [...] our ownership and financial relationship of the [facility] beds/home health & hospice agencies. Reviewed [...] Selected Services Address Phone Fax Patient Preferred [facility] [phone] [place] [address] -- Contact: Intake NURSING: - Adjust [...] draws will be managed by Outpatient Facility: [facility] Address: [address] , [place], [place] Contact: Princess They will provide IV [...] continue to follow. Joe Ervin, M.S.WBritton 01/01/2022 LINER MAKER Gucci Salvador M.D. - 01/01/2022 10:45 AM [...] questions answered to patient's satisfaction. Please page [phone] for questions. 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 [id number] LINER MAKER Pamela Crawford, DBritton, R.Ph. - 01/01/2022 10:14 [...] on post-operative opioids Pamela Crawford PharmBrittonDBritton, R.Ph. [phone] LINER MAKER Jose Guadalupe Nixon M.D. - 01/01/2022 8:31 AM CST Infectious Diseases Orthopedic Surgery [facility] Consulting Service Progress Note SUBJECTIVE -No acute [...] Date/Time Bacteria / Mandi Culture, Blood #2 [[id number]] Collected: 12/31/21 1604 Lab Status: In process Specimen: Blood, Peripheral Draw Updated: 12/31/21 1651 Narrative: Received Bactec aerobic and Bactec anaerobic bottles Specimen Information: Specimen ID: [id number] Specimen Source: Blood, Peripheral Draw Specimen Comment: Specimen Source Site: Blood Specimen Collection Start Date: 12/31/2021 4:05 PM Specimen Received Date: 12/31/2021 4:51 PM Specimen ID: [id number] Specimen Source: Blood, Peripheral Draw Specimen Comment: Specimen Source Site: Blood Specimen Collection Start Date: 12/31/2021 4:05 PM Specimen Received Date: 12/31/2021 4:51 PM Specimen ID: [id number] Specimen Source: Blood, Peripheral Draw Specimen Comment: Specimen Source Site: Blood Specimen Collection Start Date: 12/31/2021 4:04 PM Specimen Received Date: 12/31/2021 4:51 PM Bacteria / Mandi Culture, Blood #1 [[id number]] Collected: 12/31/21 1552 Lab Status: In process Specimen: Blood, Peripheral Draw Updated: 12/31/21 1651 Narrative: Received Bactec aerobic and Bactec anaerobic bottles Specimen Information: Specimen ID: [id number] Specimen Source: Blood, Peripheral Draw Specimen Comment: Specimen Source Site: Blood Specimen Collection Start Date: 12/31/2021 3:52 PM Specimen Received Date: 12/31/2021 4:50 PM Specimen ID: [id number] Specimen Source: Blood, Peripheral Draw Specimen Comment: Specimen Source Site: Blood Specimen Collection Start Date: 12/31/2021 3:53 PM Specimen Received Date: 12/31/2021 4:50 PM Specimen ID: [id number] Specimen Source: Blood, Peripheral Draw Specimen Comment: Specimen Source Site: Blood Specimen Collection Start Date: 12/31/2021 3:53 PM Specimen Received Date: 12/31/2021 4:50 PM Bacteria Cult, Aerobe / Anaerobe+Susc [[id number]] Collected: 12/30/21 1411 Lab Status: Preliminary result Specimen: Shoulder, Left Updated: 12/31/21 1601 Bacteria Cult, Aerobe/Anaerobe+Susc No growth to date. Narrative: Bacterial Culture: Placed in Bactec aerobic and Bactec anaerobic bottles Bacteria Cult, Aerobe / Anaerobe+Susc [[id number]] Collected: 12/30/21 1405 Lab Status: Preliminary result Specimen: Synovial Fluid, Left Shoulder Updated: 12/31/21 1601 Bacteria Cult, Aerobe/Anaerobe+Susc No growth to date. Narrative: Bacterial Culture: Placed in Bactec aerobic and Bactec anaerobic bottles Bacteria Cult, Aerobe / Anaerobe+Susc [[id number]] Collected: 12/30/21 1404 Lab Status: Preliminary result Specimen: Shoulder, Left Updated: 12/31/21 1601 Bacteria Cult, Aerobe/Anaerobe+Susc No growth to date. Narrative: Bacterial Culture: Placed in Bactec aerobic and Bactec anaerobic bottles Bacteria Cult, Aerobe / Anaerobe+Susc [[id number]] Collected: 12/30/21 1403 Lab Status: Preliminary result Specimen: Shoulder, Left Updated: 12/31/21 1601 Bacteria Cult, Aerobe/Anaerobe+Susc No growth to date. Narrative: Bacterial Culture: Placed in Bactec aerobic and Bactec anaerobic bottles Bacteria Cult, Aerobe / Anaerobe+Susc [[id number]] Collected: 12/30/21 1403 Lab Status: Preliminary result Specimen: Shoulder, Left Updated: 12/31/21 1601 Bacteria Cult, Aerobe/Anaerobe+Susc No growth to date. Narrative: Bacterial Culture: Placed in Bactec aerobic and Bactec anaerobic bottles SARS Coronavirus 2, Molecular Detection, PCR, Varies Asymptomatic [[id number]] Collected: 12/29/21 1111 Lab Status: Final result [...] ----ADDITIONAL INFORMATION---- This RT-PCR test using the CR2 SARS-CoV-2 Assay ( ThinkNear.) performed on the CR2 Two Module System has received Emergency Use Authorization (EUA) by the U.S. Food and Drug Administration, and is modified from the utility sales and service manager's instructions with a bridging study. Performance characteristics were verified by [facility] in a manner consistent with CLIA requirements. Visit the CDC website: https://www.cdc.gov/coronavirus/ for the most recent guidelines on Coronavirus testing. Fact Sheet for Healthcare Providers: https://www.fda.gov/media/131436/download Fact Sheet for Patients: https://www.fda.gov/media/426743/download ASSESSMENT / PLAN 56-year-old female with a [...] is consistent with aspiration results from original [facility] evaluation which is likely territory representative of the culprit organism causing her [...] of Infectious Diseases OPAT monitoring program at [phone] after dismissal. Primary service to follow labs while patient is hospitalized. [place] pharmacist to adjust dosing after dismissal 4. [...] Please page Ortho C-ID service pager at [phone] with any questions. ?? Jose Guadalupe Nixon [...] Overall Comments Patient to dismiss with OnQ. Daroi Murillo M.D. - 01/01/2022 7:00 AM CST [...] - Date/Time Bacteria Cult, Aerobe / Anaerobe+Susc [[id number]] Collected: 12/30/21 1411 Lab Status: In process Specimen: Shoulder, Left Updated: 12/30/21 1540 Narrative: Bacterial Culture: Placed in Bactec aerobic and Bactec anaerobic bottles Bacteria Cult, Aerobe / Anaerobe+Susc [[id number]] Collected: 12/30/21 1405 Lab Status: In process Specimen: Synovial Fluid, Left Shoulder Updated: 12/30/21 1519 Narrative: Bacterial Culture: Placed in Bactec aerobic and Bactec anaerobic bottles Bacteria Cult, Aerobe / Anaerobe+Susc [[id number]] Collected: 12/30/21 1404 Lab Status: In process Specimen: Shoulder, Left Updated: 12/30/21 1536 Narrative: Bacterial Culture: Placed in Bactec aerobic and Bactec anaerobic bottles Bacteria Cult, Aerobe / Anaerobe+Susc [[id number]] Collected: 12/30/21 1403 Lab Status: In process Specimen: Shoulder, Left Updated: 12/30/21 1533 Narrative: Bacterial Culture: Placed in Bactec aerobic and Bactec anaerobic bottles Bacteria Cult, Aerobe / Anaerobe+Susc [[id number]] Collected: 12/30/21 1403 Lab Status: In process Specimen: Shoulder, Left Updated: 12/30/21 1538 Narrative: Bacterial Culture: Placed in Bactec aerobic and Bactec anaerobic bottles SARS Coronavirus 2, Molecular Detection, PCR, Varies Asymptomatic [[id number]] Collected: 12/29/21 1111 Lab Status: Final result [...] ----ADDITIONAL INFORMATION---- This RT-PCR test using the CR2 SARS-CoV-2 Assay ( ThinkNear.) performed on the CR2 Two Module System has received Emergency Use Authorization (EUA) by the U.S. Food and Drug Administration, and is modified from the utility sales and service manager's instructions with a bridging study. Performance characteristics were verified by [facility] in a manner consistent with CLIA requirements. Visit the CDC website: https://www.cdc.gov/coronavirus/ for the most recent guidelines on Coronavirus testing. Fact Sheet for Healthcare Providers: https://www.fda.gov/media/540923/download Fact Sheet for Patients: https://www.fda.gov/media/518393/download ASSESSMENT / PLAN IMPRESSION/REPORT/PLAN #1 Status post [...] 6 am, please page Ortho House at [facility] [phone] Trey Phan R.N. - 12/31/2021 7:34 AM [...] - Date/Time Bacteria Cult, Aerobe / Anaerobe+Susc [[id number]] Collected: 12/30/21 1411 Lab Status: In process Specimen: Shoulder, Left Updated: 12/30/21 1540 Narrative: Bacterial Culture: Placed in Bactec aerobic and Bactec anaerobic bottles Bacteria Cult, Aerobe / Anaerobe+Susc [[id number]] Collected: 12/30/21 1405 Lab Status: In process Specimen: Synovial Fluid, Left Shoulder Updated: 12/30/21 1519 Narrative: Bacterial Culture: Placed in Bactec aerobic and Bactec anaerobic bottles Bacteria Cult, Aerobe / Anaerobe+Susc [[id number]] Collected: 12/30/21 1404 Lab Status: In process Specimen: Shoulder, Left Updated: 12/30/21 1536 Narrative: Bacterial Culture: Placed in Bactec aerobic and Bactec anaerobic bottles Bacteria Cult, Aerobe / Anaerobe+Susc [[id number]] Collected: 12/30/21 1403 Lab Status: In process Specimen: Shoulder, Left Updated: 12/30/21 1533 Narrative: Bacterial Culture: Placed in Bactec aerobic and Bactec anaerobic bottles Bacteria Cult, Aerobe / Anaerobe+Susc [[id number]] Collected: 12/30/21 1403 Lab Status: In process Specimen: Shoulder, Left Updated: 12/30/21 1538 Narrative: Bacterial Culture: Placed in Bactec aerobic and Bactec anaerobic bottles SARS Coronavirus 2, Molecular Detection, PCR, Varies Asymptomatic [[id number]] Collected: 12/29/21 1111 Lab Status: Final result [...] ----ADDITIONAL INFORMATION---- This RT-PCR test using the CR2 SARS-CoV-2 Assay ( ThinkNear.) performed on the CR2 Two Module System has received Emergency Use Authorization (EUA) by the U.S. Food and Drug Administration, and is modified from the utility sales and service manager's instructions with a bridging study. Performance characteristics were verified by [facility] in a manner consistent with CLIA requirements. Visit the CDC website: https://www.cdc.gov/coronavirus/ for the most recent guidelines on Coronavirus testing. Fact Sheet for Healthcare Providers: https://www.fda.gov/media/268017/download Fact Sheet for Patients: https://www.fda.gov/media/651980/download ASSESSMENT / PLAN IMPRESSION/REPORT/PLAN #1 Status post [...] Jey Matos DO Shoulder & Elbow Fellow [facility] Orthopaedic Surgery For any questions or concerns from 6 am until 6 pm, please page Jam service For urgent matters from 6 pm until 6 am, please page Arthur [facility]wood at [facility] [phone] LINER MAKER Trey Rdz R.N. - 12/30/2021 4:39 PM [...] Care Plan:continue current management per plan/IPS protocol LINER MAKER Feli Viveros PharmBrittonDBritton, R.Ph. - 12/30/2021 11:33 [...] home. She is registered with the state [facility] for medical cannabis and she [place]. She was told to leave her [...] Take 150 mg by mouth every morning. oyhlpyamxs-hhtwabahfdcqf-xzfi (ESGIC) 50-325-40 mg per tablet Past Week [...] by mouth 2 (two) times a day. LINER MAKER documented in this encounter Procedure Notes Soraida [...] to release the adhesive from the skin. [email or web address]/[email or web address] LINER MAKER documented in this encounter Consult Notes Ruth [...] RESECTION SHOULDER.; Surgeon: Cyrus Polk M.D.; Location: [facility] OR ??? BACK SURGERY 1998 lumbar fusion [...] Right Lives With: Alone Receives Help From: stockroom attendant, Family, Friend(s) ADL Assistance: Required assistance ADL Assistance Comments: Gets help from OVERHEAD FOREMAN for her bath/shower and for her meals IADL/Homemaking Assistance: Required assistance IADL/Homemaking Assistance Comments: Gets help for housecleaning Driving: Independent Occupational Role: On disability Prior Mobility/Functional Transfers Level of [place]: Modified independent Gait Devices/Wheelchair Used: Cane Gait [...] session with call light in reach and OVERHEAD FOREMAN present, all needs metand questions answered. Contact monitoring: PPE used during therapy: Therapist was wearing the following PPE throughout entire session: surgicalmask and eye protection Patient was wearing a mask during therapy session: yes, when out of room Outcome Measures [facility] Inpatient Short Form: -[facility] Basic Mobility (V.2) How much help [...] 3-5 steps with a railing?: A Lot -[facility] Basic Mobility (V.2) Raw Score: 17 -[facility] Basic Mobility (V.2) Standardized Score: 39.67 Interpretation: Clinicians answer the -[facility] Inpatient Short Form based on observed [...] (min): 36 min Ruth Gonzalez P.T., D.P.T. LINER MAKER Thao You L.I.C.S.W., M.S.W. - 12/31/2021 2:04 PM CSTAssociated Order(s): IP CONSULT TO CARE MANAGEMENT; IP CONSULT TO CARE MANAGEMENT; IP CONSULT TO CARE MANAGEMENT Psychosocial Assessment SUBJECTIVE DEMOGRAPHIC INFORMATION Person(s) present during interview: Patient Primary care clinic and provider: [facility] Primary Language: Latvian Legal Information: Legal decision maker for self [...] / Household Status: Patient resides alone in [place], [place]. She lives in a two bedroom apartment. Patient has four adultchildren two of whom live in [place]. Patient son Rafal lives next door to patient. Support Systems: Family members, Friends/neighbors. We have not received permission to contact them. Primary caregiver: Self Accompanied by/Relationship: None Support System: Family members, Friends/neighbors Spirituality / Amish / Culture: , None History: No Education: High school Employment: Disabled Psychosocial Risk Factors impacting the patient: Resides alone, mental health issues Abuse, Neglect, Maltreatment, Trauma: Current: None reported. Past: None reported. ENVIRONMENTAL SUPPORTS Current Living Situation: Private residence Patient's Home Environment: Resides in a two bedroom apartment on the main [facility] Care Facility Name (if applicable): NA [...] Behavior: Oriented Communication: Reads, writes and speaks Latvian It is anticipated that the patient will need assistance with .Dressing,bathing, meal prep, housekeeping, shopping ASSISTIVE DEVICES Patient has the following equipment: Eyeglasses, Dentures upper, Dentures lower, cane, walker Patient anticipates potentially needing the following additional equipment: None Transportation needs: Independent to drive, support from family and friends SERVICES REQUESTED Infusion therapy CELL OPERATION SUPERVISOR Formal and Informal Resources: Patient receives home health aid services three times per week and half-way visit one time every two weeks through [facility]. FINANCES/INSURANCE Primary insurance: MEDICARE A AND B Secondary insurance: MEDICA ADVANCE DIRECTIVES Advance Directive: Patient does not have advance directive, does not want information DISCHARGE PLANNING Patient is planning on returning home upon her discharge. She currently receives home health aid services and half-way through [facility]. Patient also has [...] good support group consisting of family, friends [facility]. INTERVENTIONS ?? Psychosocial assessment ?? [...] of care/plan: None Joe Ervin, M.S.W. 12/31/2021 LINER MAKER Jose Guadalupe Nixon M.D. - 12/31/2021 7:31 AM CSTAssociated Order(s): IP CONSULT TO INFECTIOUS DISEASES Infectious Diseases Orthopedic Surgery [facility] Consulting Service Consult Note SUBJECTIVE REASON FOR [...] resistance on OSH AST. She presented to [facility] (unclear if on antibiotics) for further evaluation given persistent L shoulder pain 08/2021 prompting aspiration (09/25/21) which revealed elevated TNC (84070) with 81% PMNs with cultures positive for1 [...] The patient was subsequently admitted to [facility] for further management. Intraoperative cultures and [...] - Date/Time Bacteria Cult, Aerobe / Anaerobe+Susc [[id number]] Collected: 12/30/21 1411 Lab Status: In process Specimen: Shoulder, Left Updated: 12/30/21 1540 Narrative: Bacterial Culture: Placed in Bactec aerobic and Bactec anaerobic bottles Bacteria Cult, Aerobe / Anaerobe+Susc [[id number]] Collected: 12/30/21 1405 Lab Status: In process Specimen: Synovial Fluid, Left Shoulder Updated: 12/30/21 1519 Narrative: Bacterial Culture: Placed in Bactec aerobic and Bactec anaerobic bottles Bacteria Cult, Aerobe / Anaerobe+Susc [[id number]] Collected: 12/30/21 1404 Lab Status: In process Specimen: Shoulder, Left Updated: 12/30/21 1536 Narrative: Bacterial Culture: Placed in Bactec aerobic and Bactec anaerobic bottles Bacteria Cult, Aerobe / Anaerobe+Susc [[id number]] Collected: 12/30/21 1403 Lab Status: In process Specimen: Shoulder, Left Updated: 12/30/21 1533 Narrative: Bacterial Culture: Placed in Bactec aerobic and Bactec anaerobic bottles Bacteria Cult, Aerobe / Anaerobe+Susc [[id number]] Collected: 12/30/21 1403 Lab Status: In process Specimen: Shoulder, Left Updated: 12/30/21 1538 Narrative: Bacterial Culture: Placed in Bactec aerobic and Bactec anaerobic bottles SARS Coronavirus 2, Molecular Detection, PCR, Varies Asymptomatic [[id number]] Collected: 12/29/21 1111 Lab Status: Final result [...] ----ADDITIONAL INFORMATION---- This RT-PCR test using the CR2 SARS-CoV-2 Assay ( ThinkNear.) performed on the CR2 Two Module System has received Emergency Use Authorization (EUA) by the U.S. Food and Drug Administration, and is modified from the utility sales and service manager's instructions with a bridging study. Performance characteristics were verified by [facility] in a manner consistent with CLIA requirements. Visit the CDC website: https://www.cdc.gov/coronavirus/ for the most recent guidelines on Coronavirus testing. Fact Sheet for Healthcare Providers: https://www.fda.gov/media/200099/download Fact Sheet for Patients: https://www.fda.gov/media/293984/download ASSESSMENT / PLAN 56-year-old female with a [...] is consistent with aspiration results from original [facility] evaluation which is likely territory representative of the culprit organism causing her [...] follow along closely. Please page the Ortho [facility]-ID service pager at [phone] with questions. Thank you for the consultation. Jose Guadalupe Nixon M.D. LINER MAKER Associated attestation - Gucci Salvador M.D. - 12/31/2021 6:07 PM BOOT LINER MAKER DEMOGRAPHIC INFORMATION Clinic Number:[phone] Patient Name: Angie [...] and Oxycodone. Oxycodone filled here at [facility] pharmacy. Patient going home with an interscalene block OnQ pump. Transportation provided by her son. LINER MAKER Fanny Sifuentes R.N. - 12/31/2021 11:00 PM [...] Nasal mucous membranes remain intact Outcome: Progressing LINER MAKER Ezequiel Hernandez R.N. - 12/30/2021 10:27 PM [...] staff assistance to bathroom. Navin Hernandez R.N. LINER MAKER documented in this encounter OR Notes Op Note - Cyrus Polk M.D. - 12/30/2021 2:50 PM CST STAFF: Cyrus Polk M.D. RESIDENT: Dario Carrera M.D. PRE-OPERATIVE DIAGNOSIS Left infected reverse arthroplasty. POST-OPERATIVE DIAGNOSIS Left infected reverse arthroplasty. A assistant professor of theater was necessary for one or more of [...] Cyrus Polk M.D. CT CT Job ID: [id number] LINER MAKER documented in this encounter Miscellaneous Notes [...] and pain is controlled on oral medications. LINER MAKER documented in this encounter Plan of Treatment Scheduled Referrals Name Type Priority Associated Diagnoses Order S [facility] Outpatient Referral Routine Direct Infection Of Ordered: Health Referral Left Shoulder In 01/01/20 22 Infectious And Parasitic Diseases Classified Elsewhere (HCC) documented as of this encounter Procedures Procedure Name Priority Date/Time Associated Comments Diagnosis PLACE PERIPHERALLY Routine 01/01/2022 12:11 Resul ts for this INSERTED CENTRAL PM BOOT LINER MAKER procedure a re in CATHETER (PICC) the results section. REMOTE OXIMETRY Routine 12/31/2021 5:23 MONITORING CONT. PM BOOT LINER MAKER REMOTE OXIMETRY Routine 12/31/2021 5:23 MONITORING CONT. PM BOOT LINER MAKER BACTERIA / MANDI Routine 12/31/2021 4:04 Result s for this CULTURE, BLOOD PM BOOT LINER MAKER procedure are in the results section. BACTERIA / MANDI Routine 12/31/2021 3:52 Result s for this CULTURE, BLOOD PM BOOT LINER MAKER procedure are in the results section. ADULT OXYGEN THERAPY Routine 12/31/2021 8:01 AM BOOT LINER MAKER CBC WITH Routine 12/31/2021 4:25 Results for this DIFFERENTIAL, B AM BOOT LINER MAKER procedure ar e in the results section. BASIC METABOLIC Routine 12/31/2021 4:25 Results f or this PANEL, S/P AM BOOT LINER MAKER procedure are i n the results section. ADULT OXYGEN THERAPY Routine 12/30/2021 8:01 PM BOOT LINER MAKER ADULT OXYGEN THERAPY Routine 12/30/2021 5:12 PM BOOT LINER MAKER ADULT OXYGEN THERAPY Routine 12/30/2021 5:12 PM BOOT LINER MAKER ADULT OXYGEN THERAPY Routine 12/30/2021 3:46 PM BOOT LINER MAKER ADULT OXYGEN THERAPY Routine 12/30/2021 3:46 PM BOOT LINER MAKER DX SHOULDER LEFT 1 RAD - Timed (for 12/30/2021 3:41 Re sults for this VIEW specific PM BOOT LINER MAKER procedure are i n dates/times) the results section. SURGICAL PATHOLOGY, Routine 12/30/2021 2:15 Shoulder Joint Res ults for this FROZEN LAB PM BOOT LINER MAKER Disorder Left procedure are in the results section. BACTERIA CULT, Routine 12/30/2021 2:11 Results fo r this AEROBE/ANAEROBE+SUSC PM BOOT LINER MAKER procedu re are in the results section. BACTERIA CULT, Routine 12/30/2021 2:05 Results fo r this AEROBE/ANAEROBE+SUSC PM [employer]OT LINER MAKER procedu re are in the results section. BACTERIA CULT, Routine 12/30/2021 2:04 Results fo r this AEROBE/ANAEROBE+SUSC PM BOOT LINER MAKER procedu re are in the results section. BACTERIA CULT, Routine 12/30/2021 2:03 Results fo r this AEROBE/ANAEROBE+SUSC PM [employer]OT LINER MAKER procedu re are in the results section. BACTERIA CULT, Routine 12/30/2021 2:03 Results fo r this AEROBE/ANAEROBE+SUSC PM [employer]OT LINER MAKER procedu re are in the results section. ARTHROPLASTY 12/30/2021 12:34 Shoulder Joint RESECTION SHOULDER PM BOOT LINER MAKER Disorder Left documented in this encounter Results Place peripherally inserted central catheter (PICC) (01/01/2022 12:11 PM BOOT LINER MAKER) Narrative MMODAL - 01/01/2022 12:11 PM BOOT LINER MAKER Soraida Dick R.N. ? 01/01/2022 12:13 PM [...] to release the adhesive from the skin. [email or web address] Dario Carrera M.D. PROCEDURE/MINOR SURGICAL ORD ERABLES Performing Organization Address City/[facility]/ZIP Code Phon e Number MMODAL MMODAL NA Bacteria / Mandi Culture, Blood #2 (12/31/2021 4:04 PM BOOT LINER MAKER) [facility] Method Time Signature Bacteria/Valerie No growth 01/05/2022 DTL da Culture, after 5 5:02 PM BOOT LINER MAKER Blood days of incubation. Specimen (Source) Anatomical Collection Method Collection Time Re ceived Time Location / / Volume Laterality Blood (Blood, 12/31/2021 4:04 12/31/2021 4:51 Peripheral Draw) PM BOOT LINER MAKER PM BOOT LINER MAKER Comment: Specimen Source Site: Blood Narrative [facility] - 01/05/2022 5:02 PM BOOT LINER MAKER Received Bactec aerobic and Bactec anaer obic bottles Dario Carrera M.D. LAB MICROBIOLOGY - GENERAL O RDERASARAH Performing Organization Address [facility] Phon e Number [facility] - [address] [place], [place] [address] [place] [address] Bacteria / Mandi Culture, Blood #1 (12/31/2021 3:52 PM BOOT LINER MAKER) [facility] Method Time Signature Bacteria/Valerie No growth 01/05/2022 DT da Culture, after 5 5:02 PM BOOT LINER MAKER Blood days of incubation. Specimen (Source) Anatomical Collection Method Collection Time Re ceived Time Location / / Volume Laterality Blood (Blood, 12/31/2021 3:52 12/31/2021 4:50 Peripheral Draw) PM BOOT LINER MAKER PM BOOT LINER MAKER Comment: Specimen Source Site: Blood Narrative [facility] - 01/05/2022 5:02 PM BOOT LINER MAKER Received Bactec aerobic and Bactec anaer obic bottles Dario Carrera M.D. LAB MICROBIOLOGY - GENERAL O RDERABLES Performing Organization Address City/[facility]/ZIP [facility] Phon e Number [facility] - [address] [place], [place] [address] [place] [address] [facility] [address] [facility] (ABNORMAL) CBC with Differential, Blood (12/31/2021 4:25 AM BOOT LINER MAKER) [facility] gist Method Time Signature Hemoglobin 8.9 (L) 11.6 - 12/31/2021 DTL 15.0 g/dL 5:15 AM BOOT LINER MAKER Hematocrit 27.3 (L) 35.5 - 12/31/2021 DTL 44.9 % 5:15 AM BOOT LINER MAKER Erythrocytes 3.26 (L) 3.92 - 12/31/2021 DTL 5.13 5:15 AM BOOT LINER MAKER x10(12)/L MCV 83.7 78.2 - 12/31/2021 DTL 97.9 fL 5:15 AM BOOT LINER MAKER RBC Distrib Width 19.6 (H) 12.2 - 12/31/2021 DTL 16.1 % 5:15 AM BOOT LINER MAKER Platelet Count 274 157 - 371 12/31/2021 DTL x10(9)/L 5:15 AM BOOT LINER MAKER Leukocytes 6.6 3.4 - 9.6 12/31/2021 DTL x10(9)/L 5:15 AM BOOT LINER MAKER Neutrophils 4.91 1.56 - 12/31/2021 DTL 6.45 5:15 AM BOOT LINER MAKER x10(9)/L Lymphocytes 1.10 0.95 - 12/31/2021 DTL 3.07 5:15 AM BOOT LINER MAKER x10(9)/L Monocytes 0.61 0.26 - 12/31/2021 DTL 0.81 5:15 AM BOOT LINER MAKER x10(9)/L Eosinophils <0.03 0.03 - 12/31/2021 DTL 0.48 5:15 AM BOOT LINER MAKER x10(9)/L Basophils <0.03 0.01 - 12/31/2021 DTL 0.08 5:15 AM BOOT LINER MAKER x10(9)/L Specimen Anatomical Collection Method Collection Time Receive d Time (Source) Location / / Volume Laterality Blood (Blood, 12/31/2021 4:25 AM 12/31/19 5:04 Venous) BOOT LINER MAKER AM BOOT LINER MAKER Dario Carrera M.D. LAB BLOOD ADD-ON Performing Organization Address City/State/ZIP Code Phon e Number [facility] - [address] [place] [address] [facility] 200 [facility] (ABNORMAL) Basic Metabolic Panel (12/31/2021 4:25 AM BOOT LINER MAKER) P athologist Signature Potassium, S 4.4 3.6 - 5.2 12/31/2021 DTL mmol/L 5:35 AM BOOT LINER MAKER Sodium, S 134 (L) 135 - 145 12/31/2021 DTL mmol/L 5:35 AM BOOT LINER MAKER Chloride, S 103 98 - 107 12/31/2021 DTL mmol/L 5:35 AM BOOT LINER MAKER Bicarbonate, S 22 22 - 29 12/31/2021 DTL mmol/L 5:35 AM BOOT LINER MAKER Anion Gap 9 7 - 15 12/31/2021 DTL 5:35 AM BOOT LINER MAKER BUN (Blood Urea 21 6 - 21 12/31/2021 DTL Nitrogen), S mg/dL 5:35 AM BOOT LINER MAKER Creatinine 0.74 0.59 - 12/31/2021 DTL 1.04 mg/dL 5:35 AM BOOT LINER MAKER eGFR-Non 90 >=60 12/31/2021 DTL Black/ mL/min/BSA 5:35 AM BOOT LINER MAKER Finnish Comment: ----ADDITIONAL INFORMATION---- Estimated GFR calculated using the 2009 CKD_EPI creatinine equation. eGFR-Black/ >90 >=60 mL/min/BSA 2021 5:35 AM BOOT LINER MAKER DTL Comment: ----ADDITIONAL INFORMATION---- Estimated GFR calculated using the 2009 CKD_EPI creatinine equation. Calcium, Total, S 8.7 8.6 - 10.0 mg/dL 12/31/2021 5:35 AM BOOT LINER MAKER DTL Glucose, S 138 70 - 140 mg/dL 12/31/2021 5:35 AM BOOT LINER MAKER D TL Specimen Anatomical Collection Method Collection Time Receive d Time (Source) Location / / Volume Laterality Blood (Blood, 12/31/2021 4:25 AM 12/31/19 5:18 Venous) BOOT LINER MAKER AM BOOT LINER MAKER Dario Carrera M.D. LAB BLOOD ADD-ON Performing Organization Address City/State/ZIP Code Phon e Number [facility] - [address] [place] [address] [address] [facility] [place] [place] [address] [facility] [address] DX Shoulder Left 1 View (12/30/2021 3:41 PM BOOT LINER MAKER) Anatomical Region Laterality Modality Upper Extremity, Shoulder, Musculoskeletal RST LOS, Left Computed Radiography Musculoskeletal ARZ LOS, Muskuloskeletal FLA LOS Specimen (Source) Anatomical Collection Method Collection Time Re ceived Time Location / / Volume Laterality 12/30/2021 3:54 PM BOOT LINER MAKER Impressions 12/30/2021 3:59 PM BOOT LINER MAKER Postoperative changes of a left shoulder arthroplasty resection and placement of an antibiotic spacer. Negat lalo for postoperative purposes. Narrative 12/30/2021 3:59 PM BOOT LINER MAKER EXAM: ??DX SHOULDER LEFT 1 VIEW Procedure Note Timothy Resendiz M.D. - 12/30/2021Forma tting of this note might be different from the original. EXAM: DX SHOULDER LEFT 1 VIEW IMPRESSION: Postoperative changes of a left shoulder arthroplasty resection and placement of an antibiotic spacer. Negat lalo for postoperative purposes. Dario Carrera M.D. IMG DIAGNOSTIC IMAGING [facility] Surgical Pathology, Frozen Lab (12/30/2021 2:15 PM BOOT LINER MAKER) Component Value Ref Test Analysis Performed At [facility] Range Method Time Signature 01/01/2022 METH 8:22 AM BOOT LINER MAKER Participated in Kelly Howard 01/01/2022 METH the D.O.-Pathology 8:22 AM BOOT LINER MAKER Interpretation Resident Report Solomon Marcum M.D. 01/01/2022 METH electronically 8:22 AM BOOT LINER MAKER signed by I verify that I have examined all relevant slides/materials for the specimen(s) and rendered or confirmed the diagnosis. Frozen A. ??Synovium, left shoulder, excision: ??Synovial tissue 01/01/2022 METH Intraoperative with 8:22 AM BOOT LINER MAKER Report acute inflammation (>5 neutrophils/high power field). Signed by Solomon Marcum M.D. 12/31/2021 8:17 AM Gross Description A. ??Received fresh labeled left shoulder is a 1.4 x 0.9 x 01/01/2022 METH 0.4 cm aggregate of red and campbell fibrous tissue, which is 8:22 AM BOOT LINER MAKER soft. ??All submitted for frozen and permanent sections. Grossed by Nikki Gallardo. Block Summary A Left shoulder 01/01/2022 METH A1 Left shoulder-frozen 8:22 AM BOOT LINER MAKER Interpretation FINAL DIAGNOSIS 01/01/2022 METH 8:22 AM BOOT LINER MAKER A. ??Synovium, left shoulder, excision: ??Synovial tissue with acute inflammation (>5 neutrophils/high power field). Specimen (Source) Anatomical Collection Method Collection Time Re ceived Time Location / / Volume Laterality Tissue (Shoulder, 12/30/2021 2:15 PM Left) BOOT LINER MAKER Narrative This result has an attachment that is no t available. Cyrus Polk M.D. LAB SURG PATH ORDERABLES Performing Organization Address [facility] Phon e Number [facility] - [address] [place], [place] [id number] [place] [address] Bacteria Cult, Aerobe / Anaerobe+Susc (12/30/2021 2:11 PM BOOT LINER MAKER) [facility] Method Time Signature Bacteria Cult, No growth 01/13/2022 DTL Aerobe/Anaerob after 14 4:02 PM BOOT LINER MAKER e+Susc days of incubation. Specimen Anatomical Collection Method Collection Time Receive d Time (Source) Location / / Volume Laterality Shoulder, Left 12/30/2021 2:11 PM 022 3:38 BOOT LINER MAKER PM BOOT LINER MAKER Comment: Specimen Source Site: Tissue #4 Narrative [facility] - 01/13/2022 4:02 PM BOOT LINER MAKER Bacterial Culture: Placed in Bactec aero bic and Bactec anaerobic bottles Cyrus Polk M.D. LAB MICROBIOLOGY - GENERAL O RDERABLES Performing Organization Address City/[facility] Phon e Number [facility] - [address] [place], [place] [address] [facility] D[place], [place] [id number] [place] [address] [facility] (ABNORMAL) Bacteria Cult, Aerobe / Anaerobe+Susc (12/30/2021 2:05 PM BOOT LINER MAKER) Component Value Ref Test Analysis Performed At [facility] Range Method Time Signature Bacteria STAPHYLOCOCCUS EPIDERMIDIS 01/11/2022 DT L Cult, Growth after 4 days 7:55 AM BOOT LINER MAKER Aerobe/Anaero (A) be+Susc Comment: Semi-Urgent Result. Semi-Urgent This is a semi-urgent result [facility] - (ORTIZ) [facility] S Specimen Anatomical Collection Method Collection Time Receive d Time (Source) Location / / Volume Laterality Synovial Fluid, 12/30/2021 2:05 PM 2021 3:17 Left Shoulder BOOT LINER MAKER PM BOOT LINER MAKER Comment: Specimen Source Site: Fluid Narrative [facility] - 01/11/2022 7:55 AM BOOT LINER MAKER Bacterial Culture: Placed in Bactec aero bic [...] e Number [facility] - [address] [place] [address] [address] [place] [address] [facility] [address] [facility] Bacteria Cult, Aerobe / Anaerobe+Susc (12/30/2021 2:04 PM BOOT LINER MAKER) [facility] Method Time Signature Bacteria Cult, No growth 01/13/2022 DTL Aerobe/Anaerob after 14 4:02 PM BOOT LINER MAKER e+Susc days of incubation. Specimen Anatomical Collection Method Collection Time Receive d Time (Source) Location / / Volume Laterality Shoulder, Left 12/30/2021 2:04 PM 022 3:34 BOOT LINER MAKER PM BOOT LINER MAKER Comment: Specimen Source Site: Tissue #[address] [facility] - 01/13/2022 4:02 PM BOOT LINER MAKER Bacterial Culture: Placed in Bactec aero bic and Bactec anaerobic bottles Cyrus Polk M.D. LAB MICROBIOLOGY - GENERAL O MARY Performing Organization Address City/[facility] Phon e Number [facility] - [address] [place], [place] [address] [facility] [place], [place] [phone] [place] [address] Bacteria Cult, Aerobe / Anaerobe+Susc (12/30/2021 2:03 PM BOOT LINER MAKER) [facility] Method Time Signature Bacteria Cult, No growth 01/13/2022 DTL Aerobe/Anaerob after 14 4:02 PM BOOT LINER MAKER e+Susc days of incubation. Specimen Anatomical Collection Method Collection Time Receive d Time (Source) Location / / Volume Laterality Shoulder, Left 12/30/2021 2:03 PM 022 3:37 BOOT LINER MAKER PM BOOT LINER MAKER Comment: Specimen Source Site: Tissue #2 [facility] - 01/13/2022 4:02 PM BOOT LINER MAKER Bacterial Culture: Placed in Bactec aero bic and Bactec anaerobic bottles Cyrus Polk M.D. LAB MICROBIOLOGY - GENERAL O MARY Performing Organization Address City/[facility]/RUST Code Phon e Number [facility] - [address] [place], [place] [address] [facility] [place], [place] [address] [place] [address] Bacteria Cult, Aerobe / Anaerobe+Susc (12/30/2021 2:03 PM BOOT LINER MAKER) [facility] Method Time Signature Bacteria Cult, No growth 01/13/2022 DTL Aerobe/Anaerob after 14 4:02 PM BOOT LINER MAKER e+Susc days of incubation. Specimen Anatomical Collection Method Collection Time Receive d Time (Source) Location / / Volume Laterality Shoulder, Left 12/30/2021 2:03 PM 022 3:31 BOOT LINER MAKER PM BOOT LINER MAKER Comment: Specimen Source Site: Tissue #1 Narrative [facility] - 01/13/2022 4:02 PM BOOT LINER MAKER Bacterial Culture: Placed in Bactec aero bic and Bactec anaerobic bottles Cyrus Polk M.D. LAB MICROBIOLOGY - GENERAL O RDERABLES Performing Organization Address City/State/ZIP Code Phon e Number [facility] - [address] [place], [place] [address] [facility] [place] [address] [facility] [address] [...] tablet 1,000 mg Given 12/30/2021 12:02 PM BOOT LINER MAKER 1,00 0 mg (TYLENOL) 1,000 mg, oral, Once, On Tue12/30/21 at 1215, For 1 dose, Pre-Op acetaminophen tablet 1,000 mg (TYLENOL) Given 01/01/2022 11:36 AM BOOT LINER MAKER 1,000 mg 1,000 mg, oral, Every 6 hours, First dose on Tue12/30/21 at 1800 Given 01/01/2022 6:28 AM BOOT LINER MAKER 1,000 mg Given 12/31/2021 11:51 PM BOOT LINER MAKER 1,000 mg albuterol nebulizer solution 2.5 mg Given 12/31/2021 4:44 PM BOOT LINER MAKER 2.5 mg 2.5 mg, nebulization, Every 6 hours PRN, wheezing, Starting on Tue12/30/21 at 1711, Albuterol nebs were interchanged for albuterol/levalbuterol MDI (same frequency) atorvastatin tablet 80 mg (LIPITOR) Given 12/31/2021 8:57 PM BOOT LINER MAKER 80 mg 80 mg, oral, Daily at bedtime, First dose on Tue12/30/21 at 2100 Given 12/30/2021 9:55 PM BOOT LINER MAKER 80 mg benzonatate capsule 100 mg (TESSALON PER LES) Given 01/01/2022 3:10 AM BOOT LINER MAKER 100 mg 100 mg, oral, 3 times daily PRN, cough, Starting on Tue12/31/21 at 1702, Swallow whole. Do NOT crush, chew or open capsule. Given 12/31/2021 5:39 PM BOOT LINER MAKER 100 mg bupivacaine PF 0.2 % 550 mL in NaCl New Bag 01/01/2022 3:15 PM BOOT LINER MAKER 6 mL/hr 6 mL/hr 0.9% On-Q pain pump (CB004) 6 mL/hr, nerve catheter, Continuous, Starting on Tue01/01/22 at 1500, PACU & Post-Op, Location: Nerve Catheter Location, Nerve Catheter Location: Interscalene, Device: On-Q Pump bupivacaine PF 0.2 % in Rate/Dose Verify 01/01/2022 1:00 AM BOOT LINER MAKER 6 mL/ hr 6 mL/hr NaCl 0.9% 341 mL infusion (MARCAINE) 6 mL/hr, nerve catheter, Continuous, Starting on Tue12/30/21 at 1600, PACU & Post-Op, Nerve Catheter Location: Interscalene, Device: Hospital Infusion Pump Rate/Dose Verify 12/31/2021 12:11 AM BOOT LINER MAKER 6 mL/hr 6 mL/hr New Bag 12/30/2021 3:49 PM BOOT LINER MAKER 6 mL/hr 6 mL/hr buPROPion XL 24 hr tablet 150 mg (WELLBUTRIN Given 02/2022 8:35 AM BOOT LINER MAKER 150 mg XL) 150 mg, oral, Every morning, First dose on Tue12/31/21 at 0900, Swallow whole. Do NOT crush, chew, or split tablet. Given 12/31/2021 8:16 AM BOOT LINER MAKER 150 mg calcium carbonate chewable tablet Given 12/31/2021 11: 46 PM BOOT LINER MAKER 400 mg of calcium 400 mg of calcium (TUMS) 400 mg of calcium, oral, Every 2 hour PRN, indigestion, Starting on Tue12/30/21 at 1711, Doses listed are in mg of elemental calcium. Take with food. 500 mg calcium carbonate contains 200 mg of elemental calcium. Given 12/31/2021 9:15 PM BOOT LINER MAKER 400 mg of calcium carboxymethylcellulose 0.5 % ophthalmic Given 01/01/2022 1:15 AM BOOT LINER MAKER 2 drops solution 2 drop (REFRESH PLUS) 2 drop, both eyes, 4 times daily PRN, dry eyes, Starting on Tue12/30/21 at 1711 Given 12/31/2021 12:31 PM BOOT LINER MAKER 2 drops Given 12/31/2021 12:23 AM BOOT LINER MAKER 2 drops ceFAZolin in dextrose (iso-os) IVPB 2 New Bag 01/01/2022 6:27 AM BOOT LINER MAKER 2 g 200 mL/hr g (ANCEF) 2 g, intravenous, at 200 mL/hr, Administer over 30 Minutes, Every 8 hours, First dose on Tue12/30/21 at 2200, Start within 8 hours of last IV dose., Drug Monitoring Program: Pharmacist to adjust medication dosing based on indication and drug clearance factors., Indications: Bone and/or joint infection New Bag 12/31/2021 10:32 PM BOOT LINER MAKER 2 g 200 mL/hr New Bag 12/31/2021 2:21 PM BOOT LINER MAKER 2 g 200 mL/hr cefTRIAXone in dextrose (iso-osm) IVPB New Bag 01/01/2022 2:38 PM BOOT LINER MAKER 2 g 200 mL/hr 2 g (ROCEPHIN) 2 g, intravenous, at 200 mL/hr, Administer over 15 Minutes, Daily before lunch, First dose on Tue01/01/22 at 1345, Drug Monitoring Program: Pharmacist to adjust medication dosing based on indication and drug clearance factors., Indications: Bone and/or joint infection cetirizine tablet 10 mg (ZyrTEC) Given 01/01/2022 8:35 AM BOOT LINER MAKER 10 mg 10 mg, oral, 2 times daily, First dose on Tue12/30/21 at 2100, Drug Monitoring Program: Pharmacist to adjust medication dosing based on indication and drug clearance factors. Given 12/31/2021 8:57 PM BOOT LINER MAKER 10 mg Given 12/31/2021 8:16 AM BOOT LINER MAKER 10 mg cholecalciferol (vitamin D3) tablet 25 m cg Given 01/01/2022 8:35 AM BOOT LINER MAKER 25 mcg 25 mcg, oral, Daily, First dose on Tue12/31/21 at 0900, cholecalciferol (vitamin D3) orderable was interchanged for cholecalciferol (vitamin D3) tablet/capsule Given 12/31/2021 8:16 AM BOOT LINER MAKER 25 mcg D5W infusion 10-250 mL/hr, intravenous, [...] 5 mg (VALIUM) Given 12/31/2021 12:31 PM BOOT LINER MAKER 5 mg 5 mg, oral, 4 times daily PRN, muscle spasms, Starting on Tue12/30/21 at 2243 Given 12/31/2021 1:59 AM BOOT LINER MAKER 5 mg diphenhydrAMINE capsule 25 mg (BENADRYL) 25 mg, oral, Daily PRN, itching, Starting on Tue 2 at 0854 diphenhydrAMINE capsule 75 mg (BENADRYL) Given 01/01/2022 8:49 AM BOOT LINER MAKER 75 mg 75 mg, oral, Bedtime PRN, sleep, Starting on Tue12/30/21 at 1715 FLUoxetine capsule 80 mg (PROzac) Given 01/01/2022 8:34 AM BOOT LINER MAKER 80 mg 80 mg, oral, Daily, First dose on Tue12/31/21 at 0900, FLUoxetine orderable was interchanged for FLUoxetine tablet/capsule Given 12/31/2021 8:16 AM BOOT LINER MAKER 80 mg fluticasone furoate 100 mcg/actuation Given 01/01/2022 8:[address] 2 puffs inhaler 2 puff (ARNUITY ELLIPTA) 2 puff, inhalation, 2 times daily, First dose on Tue12/30/21 at 2100, fluticasone furoate 100 mcg was interchanged for fluticasone MDI 110 mcg Given 12/31/2021 9:04 PM BOOT LINER MAKER 2 puffs Given 12/31/2021 8:17 AM BOOT LINER MAKER 2 puffs granisetron (PF) injection 1 mg (KYTRIL) Given 12/30/2021 3:57 PM BOOT LINER MAKER 1 mg 1 mg, intravenous, Once as needed, nausea, vomiting, Starting on Tue12/30/21 at 1546, For 1 dose, PACU (only), If patient does not respond to ondansetron or haloperidol. (order of antiemetic administration - ondansetron then haloperidol then granisetron) haloperidol lactate injection 1 mg (HALD OL) Given 12/30/2021 4:31 PM BOOT LINER MAKER 1 mg 1 mg, intravenous, Every 6 [...] injection 0.2 mg Given 12/30/2021 4:17 PM BOOT LINER MAKER 0.2 mg (DILAUDID) 0.2 mg, intravenous, Every 5 min PRN, moderate pain or score 4-6 of 10, severe pain or score 7-10 of 10, Starting on Tue12/30/21 at 1546, PACU (only), Up to maximum total dose of 2 mg Given 12/30/2021 4:07 PM BOOT LINER MAKER 0.2 mg Given 12/30/2021 3:55 PM BOOT LINER MAKER 0.2 mg HYDROmorphone (PF) injection 0.4 mg Given 01/01/2022 4:56 AM BOOT LINER MAKER 0.4 mg (DILAUDID) 0.4 mg, intravenous, Every 2 hour PRN, severe pain or score 7-10 of 10, Starting on Tue12/30/21 at 1711, For 5 doses, May administer if pain is greater than 7 after scheduled and PRN regimen exhausted. If pain remains greater than 7, notify primary service. Given 12/31/2021 11:35 AM BOOT LINER MAKER 0.4 mg Given 12/31/2021 4:14 AM BOOT LINER MAKER 0.4 mg ipratropium-albuteroL 0.5-2.5 mg/3 mL nebulizer Given 01/01/2022 3:15 AM BOOT LINER MAKER 3 mL solution 3 mL (DUONEB) 3 mL, nebulization, 4 times daily PRN, shortness of breath, wheezing, Starting on Tue12/30/21 at 1711 ketamine injection 10 mg (KETALAR) Given 12/30/2021 12:38 PM BOOT LINER MAKER 10 mg 10 mg, intravenous, Once, On Tue12/30/21 at 1300, For 1 dose, Pre-Op lactated ringers Rate/Dose Change 01/01/2022 1:00 AM BOOT LINER MAKER 20 mL/hr 20 mL/hr 75 mL/hr, intravenous, Continuous, Starting on Tue12/30/21 at 1715, Until patient has 500cc po intake New Bag 12/31/2021 11:46 PM BOOT LINER MAKER 75 mL/hr 75 mL/hr Rate/Dose Change 12/31/2021 3:55 AM BOOT LINER MAKER 20 mL/hr 20 mL/hr lactated ringers Continued from OR 12/30/2021 4:00 PM BOOT LINER MAKER 75 mL/hr 75 mL/hr 75 mL/hr, intravenous, Continuous, Starting on Tue12/30/21 at 1600, PACU & Post-Op lamoTRIgine tablet 200 mg (LaMICtaL) Given 01/01/2022 8:34 AM BOOT LINER MAKER 200 mg 200 mg, oral, 2 times daily, First dose on Tue12/30/21 at 2100 Given 12/31/2021 8:56 PM BOOT LINER MAKER 200 mg Given 12/31/2021 8:16 AM BOOT LINER MAKER 200 mg midazolam (PF) injection 1 mg (VERSED) Given 12/30/2021 12:38 PM BOOT LINER MAKER 2 mg 1 mg, intravenous, Every 2 [...] 4 mg (ZOFRAN) Given 01/01/2022 1:16 AM BOOT LINER MAKER 4 mg 4 mg, intravenous, Every 6 hours PRN, nausea, vomiting, Starting on Tue12/30/21 at 1711, For 48 hours, Reassess for nausea or vomiting after at least 10 minutes. If nausea or vomiting persists administer next ordered antiemetic medications (order for antiemetic medication administration ondansetron then haloperidol then promethazine). Given 12/31/2021 8:16 AM BOOT LINER MAKER 4 mg oxyCODONE 12 hr tablet 20 mg (OxyCONTIN) Given 12/30/2021 12:35 PM BOOT LINER MAKER 20 mg 20 mg, oral, Once, On Tue12/30/21 at 1300, For 1 dose, Pre-Op, Swallow whole. Do NOT crush, chew, or split tablet. oxyCODONE IR tablet 10 mg (ROXICODONE) Given 12/31/2021 10:43 AM BOOT LINER MAKER 10 mg 10 mg, oral, Every 4 hours PRN, severe pain or score 7-10 of 10, Starting on Tue12/30/21 at 1536 Given 12/31/2021 6:19 AM BOOT LINER MAKER 10 mg Given 12/31/2021 12:22 AM BOOT LINER MAKER 10 mg oxyCODONE IR tablet 10 mg (ROXICODONE) Given 12/31/2021 2:21 PM BOOT LINER MAKER 10 mg 10 mg, oral, Every 4 hours PRN, severe pain or score 7-10 of 10, Starting on Tue12/31/21 at 1415 oxyCODONE IR tablet 10 mg (ROXICODONE) Given 01/01/2022 2:38 PM BOOT LINER MAKER 10 mg 10 mg, oral, Every 3 hours PRN, severe pain or score 7-10 of 10, Starting on Tue12/31/21 at 1745 Given 01/01/2022 11:35 AM BOOT LINER MAKER 10 mg Given 01/01/2022 7:07 AM BOOT LINER MAKER 10 mg oxyCODONE IR tablet 5 mg (ROXICODONE) 5 mg, oral, Every 3 hours PRN, moderate pain or score 4-6 of 10, Starting on Tue12/31/21 at 1745, If patient is >75 consider changing to 2.5-5mg scale pantoprazole DR tablet 40 mg (PROTONIX) Given 01/01/2022 3:46 PM BOOT LINER MAKER 40 mg 40 mg, oral, 2 times daily before breakfast and dinner, First dose on Tue12/31/21 at 0700, pantoprazole 40 mg oral twice daily was interchanged for esomeprazole 20 or 40 mg oral twice daily Swallow whole. Do NOT crush, chew, or split tablet. Given 01/01/2022 6:29 AM BOOT LINER MAKER 40 mg Given 12/31/2021 4:47 PM BOOT LINER MAKER 40 mg pregabalin capsule 600 mg (LYRICA) Given 01/01/2022 8:34 AM BOOT LINER MAKER 600 mg 600 mg, oral, 2 times daily, First dose on Tue12/30/21 at 2100 Given 12/31/2021 8:56 PM BOOT LINER MAKER 600 mg Given 12/31/2021 8:15 AM BOOT LINER MAKER 600 mg QUEtiapine tablet 50 mg (SEROquel) Given 12/31/2021 8:57 PM BOOT LINER MAKER 50 mg 50 mg, oral, Daily at bedtime, First dose on Tue12/30/21 at 2100 Given 12/30/2021 9:55 PM BOOT LINER MAKER 50 mg scopolamine base 1 mg Medication Applied 12/30/2021 12:02 PM 1 patch Behind Left Ear over 3 days 1 patch BOOT LINER MAKER (TRANSDERM SCOP) 1 patch, transdermal, Administer over 72 Hours, Once as needed, nausea and vomiting, Starting on Tue12/30/21 at 1201, For 1 dose, Pre-Op, Contains 1.5 mg to deliver 1 mg/72 hours. sennosides-docusate sodium 8.6-50 mg per Given 01/01/2022 8:35 A M BOOT LINER MAKER 1 tablet tablet 1 tablet (SENOKOT-S) 1 tablet, oral, 2 times daily, First dose on Tue12/30/21 at 2100, Do not give if patient has diarrhea. Given 12/31/2021 8:57 PM BOOT LINER MAKER 1 tablet Given 12/31/2021 8:16 AM BOOT LINER MAKER 1 tablet sodium chloride 0.9 % injection [...] injection 3 mL Given 12/31/2021 8:18 AM BOOT LINER MAKER 3 mL 3 mL, intravenous, Every 12 hours scheduled, First dose on Tue12/30/21 at 2100, PACU & Post-Op, Peripheral Intravenous Catheter and Rapid Infusion Catheter, when no infusion to maintain patency Given 12/30/2021 9:53 PM BOOT LINER MAKER 3 mL zonisamide capsule 300 mg (ZONEGRAN) Given 01/01/2022 8:35 AM BOOT LINER MAKER 300 mg 300 mg, oral, 2 times daily, First dose on Tue12/30/21 at 2100, Swallow whole. Do NOT crush, chew or open capsule. Given 12/31/2021 8:57 PM BOOT LINER MAKER 300 mg Given 12/31/2021 8:16 AM BOOT LINER MAKER 300 mg documented in this encounter Active and Recently Administered Medications Times are shown in BOOT LINER MAKER. Scheduled Medication Order 12/30/2021 12/31/2021 01/01/2022 acetaminophen [...] 1419 (Given - Provider: Emre Rodriguez APRN, DIE CAST TECHNICIAN) 2,000 mg (rounded from 1,747.5 mg [...] (TUMS) 2114 (Given - Provider: Fanny Sifuentes RBrittonN.)8996 (Given - Provider: Leticia Pérez, R.N.) 400 [...] over 3 days 1 patch (TRANSDERM S KELLY MACHINE OPERATOR) (CANCELED) 1202 (Medication Applied - Provider: [...] as of this encounter Care Teams Window Assembler Relationship Specialty Start Date End Date Elsewhere, Pcp PCP - General Family Medicine 12/25/21 documented as of this encounter
--- OUTSIDE RECORDS SUMMARY | 2022-11-08 14:03 | XMS_ITS | Encounter Summary ---
:1965 Author Organization [facility] Address [address] [place] [address] Care Team Providers Name Role Phone Elsewhere, Pcp Primary Care Provider Unavailable Encounter Details Date Type Department Care Team Description 12/29/2021 Hospital Encounter Department of Alfredo Herrera Preoper ative Exam; Radiology, Anh Gonzales Painful Total Joint Arthroplasty Initial ([facility]) Building, in [address] [place] [phone] [place] [address] [place], [place] (Work) [phone] Social History Tobacco Use Types Packs/Day Years [...] you attend methodist or Patient refused 2021 judaism services? Do [...] THC multivit-min/iron/folic/ Take 1 tablet by 0 [id number] (HAIR, SKIN AND mouth daily. NAILS ADVANCED [...] for this 2+ VIEWS (most inpatients AM MOTIVATIONAL SPEAKER Painful Total Joint proc edure are in and all Arthroplasty the results outpatients) Initial (HCC) section. documented in this encounter Results DX Shoulder Left 2+ Views (12/29/2021 10:30 AM MOTIVATIONAL SPEAKER) Anatomical Region Laterality Modality Upper Extremity, Shoulder, Musculoskeletal RST LOS, Left Digital Radiography Musculoskeletal ARZ LOS, Muskuloskeletal FLA LOS Specimen (Source) Anatomical Collection Method Collection Time Re ceived Time Location / / Volume Laterality 12/29/2021 10:53 AM MOTIVATIONAL SPEAKER Impressions 12/29/2021 10:57 AM MOTIVATIONAL SPEAKER Demineralization. Left shoulder arthroplasty revision to a reverse TSA. Developing lucency about the glenoi d component screws when compared back to 11/13/20, compatible with loosening. Pre sumed distal clavicle resection. Incompletely imaged instrumented spinal fusion from the upper cervical spine to the upper thoracic spine. Spinal cord st imulator. At least one old healed left posterior rib fracture. Narrative 12/29/2021 10:57 AM MOTIVATIONAL SPEAKER EXAM: ??DX SHOULDER LEFT 2+ VIEWS Procedure [...] COVID19 Pending 12/29/2021 12/29/2021 12/29/2021 4:20 PM MOTIVATIONAL SPEAKER Assessment Noted Time PHQ-9 Depression Total Score: 16 02/11/2021 12:00 AM C DT documented as of this encounter Care Teams It Technical Support Specialist Relationship Specialty Start Date End Date Elsewhere, Pcp PCP - General Family Medicine 12/25/21 documented as of this encounter
--- OUTSIDE RECORDS SUMMARY | 2022-11-08 14:03 | XMS_ITS | Encounter Summary ---
:1965 Author Organization [facility] Address [address] [place] [address] Care Team Providers Name Role Phone Elsewhere, Pcp Primary Care Provider Unavailable Encounter Details Date Type Department Care Team Description 12/30/2021 Anesthesia Event RST [facility] OR Clifford Young M.D. [address] [place] [phone] [address] [facility] [address] [place] [phone] [place] [phone] Anesthesia Record Procedure Summary [...] Andrey Rodriguezscout anita T, (created via procedure THERMOMETER TESTER, RUBBER EXTRUSION MACHINE OPERATOR THERMOMETER TESTER, DAKOTAN A documentation); Mask Ventilation: Easy mask; [...] you attend islam or Patient refused 2021 confucianist services? Do [...] the highest technical, or vocational p [facility] degree you have received? Sex Assigned at Date Recorded Female 03/01/2019 10:12 AM CDT documented as of this encounter OR Notes Anesthesia Postprocedure Evaluation - Clifford Young M.D. - 12/30/2021 3:55 PM CST Patient: Angie Mosquera Procedure Summary Date: 12/30/21 Room / Location: [address] / [facility] in [place], [place] Anesthesia Start: 1250 Anesthesia Stop: 1550 [...] Post Op nausea/vomiting: none Hydration status: euvolemic ATOR MECHANIC APPRENTICE Anesthesia Procedure Notes - Emre Rodriguez APRN, CRNA - 12/30/2021 2:29 PM ELEVATOR MECHANIC APPRENTICE Associated Order(s): Airway Airway Date/Time: 12/30/2021 1:02 [...] successful Airway event: no complications ATTESTATION STATEMENT ATOR MECHANIC APPRENTICE Anesthesia Preprocedure Evaluation - Clifford Young M.D. - 12/30/2021 1:23 PM CST Preprocedure Anesthesia & H&P Assessment Procedure Summary Anesthesia Start Date/Time: 12/30/21 1250 Procedure: ARTHROPLASTY RESECTION SHOULDER. 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 Location: [address] / [facility] in [place], [place] Providers: Cyrus Polk M.D. Pertinent components [...] /legal guardian or through an translator interpreter. Risks/Benefits/Alternatives of Blood transfusion discussed with patient / legal guardian, including an opportunity to ask questions and/or decline some or all transfusion therapies. The patient / legalguardian consented to the use of all blood products, as deemed medically necessary Approval to Proceed: approved for anesthesia ATOR MECHANIC APPRENTICE Anesthesia Procedure Notes - Clifford Khanna M.D. - 12/30/2021 12:56 PM ELEVATOR MECHANIC APPRENTICE Associated Order(s): Regional Block Regional Block Date/Time: [...] successful procedure Other complications: none ATTESTATION STATEMENT ATOR MECHANIC APPRENTICE documented in this encounter Plan of Treatment Not on filedocumented as of this encounter Procedures Procedure Name Priority Date/Time Associated Comments Diagnosis LDA ANE ENDOTRACHEAL Routine 12/30/2021 1:02 PM R esults for this AIRWAY ELEVATOR MECHANIC APPRENTICE procedure are i n the results section. MC ANE NERVE BLOCK Routine 12/30/2021 12:56 Resul ts for this WITH ULTRASOUND PM ELEVATOR MECHANIC APPRENTICE procedure ar e in the results section. LDA ANE UPPER Routine 12/30/2021 12:56 Results fo r this EXTREMITY PNC PM ELEVATOR MECHANIC APPRENTICE procedure are in the results section. PA US GUIDE PLC NDL Routine 12/30/2021 12:56 Resu lts for this PM ELEVATOR MECHANIC APPRENTICE procedure are i n the results section. PA INJ ANES BRACHIAL Routine 12/30/2021 12:56 Res ults for this PLEXUS CONT W PM ELEVATOR MECHANIC APPRENTICE procedure are in GUIDANCE the results section. documented in this encounter Results LDA ANE ENDOTRACHEAL AIRWAY (12/30/2021 1:02 PM ELEVATOR MECHANIC APPRENTICE) Narrative Emre Rodriguez APRN, CRNA - 12/30/2021 1:02 PM ELEVATOR MECHANIC APPRENTICE Emre Rodriguez APRN, CRNA ? 12/30/2021 ??2:30 [...] ATTESTATION STATEMENT Clifford Young M.D. ANESTHESIA ORDERABLES PA INJ ANES BRACHIAL PLEXUS CONT W GUIDANCE, PA US GUIDE PLC NDL, LDA ANE UPPER EXTREMITY PNC, MC ANE NERVE BLOCK WITH ULTRASOUND (12/30/2021 12:56 PM ELEVATOR MECHANIC APPRENTICE) Narrative Clifford Khanna M.D. - 12/30/2021 12:56 P M ELEVATOR MECHANIC APPRENTICE Clifford Khanna M.D. ? 12/30/2021 12:57 PM [...] 5 % injection Given 12/30/2021 1:52 PM ELEVATOR MECHANIC APPRENTICE 250 mL intravenous, As needed, Starting on Tue12/30/21 at 1352, Anesthesia Intra-op bupivacaine PF 0.5 % (5 mg/mL) injection Given 12/30/2021 12:45 PM ELEVATOR MECHANIC APPRENTICE 10 mL (MARCAINE) intrathecal, As needed, Starting on Tue12/30/21 at 1245, Anesthesia Intra-op ceFAZolin injection 2,000 mg (ANCEF) Given 12/30/2021 2:19 PM ELEVATOR MECHANIC APPRENTICE 2 g 2,000 mg (rounded from 1,747.5 [...] dexAMETHasone injection (DECADRON) Given 12/30/2021 1:09 PM ELEVATOR MECHANIC APPRENTICE 8 mg intravenous, As needed, Starting on Tue12/30/21 at 1309, Anesthesia Intra-op diphenhydrAMINE injection (BENADRYL) Given 12/30/2021 1:32 PM ELEVATOR MECHANIC APPRENTICE 12.5 mg intravenous, As needed, Starting on Tue12/30/21 at 1332, Anesthesia Intra-op ePHEDrine (PF) injection Given 12/30/2021 1:58 PM ELEVATOR MECHANIC APPRENTICE 10 mg intravenous, As needed, Starting on Tue12/30/21 at 1346, Anesthesia Intra-op Given 12/30/2021 1:46 PM ELEVATOR MECHANIC APPRENTICE 5 mg Given 12/30/2021 1:24 PM ELEVATOR MECHANIC APPRENTICE 10 mg fentaNYL injection (SUBLIMAZE) Given 12/30/2021 3:12 PM ELEVATOR MECHANIC APPRENTICE 50 mcg intravenous, As needed, Starting on Tue12/30/21 at 1512, Anesthesia Intra-op ketamine injection (KETALAR) Given 12/30/2021 2:43 PM ELEVATOR MECHANIC APPRENTICE 20 mg intravenous, As needed, Starting on Tue12/30/21 at 1443, Anesthesia Intra-op lactated ringers New Bag 12/30/2021 12:53 PM ELEVATOR MECHANIC APPRENTICE intravenous, Continuous Infusion: Per Instructions PRN, Starting on Tue12/30/21 at 1253, Anesthesia Intra-op ondansetron (PF) injection (ZOFRAN) Given 12/30/2021 3:00 PM ELEVATOR MECHANIC APPRENTICE 4 mg intravenous, As needed, Starting on Tue12/30/21 at 1500, Anesthesia Intra-op phenylephrine 80 mcg/mL in Rate/Dose 12/30/2021 3:00 0.4 mcg/kg/min 20.97 NaCl 0.9% 250 mL infusion Change PM ELEVATOR MECHANIC APPRENTICE mL/hr intravenous, Continuous Infusion: Per Instructions PRN, Starting on Tue12/30/21 at 1404, Anesthesia Intra-op Rate/Dose Change 12/30/2021 2:36 PM ELEVATOR MECHANIC APPRENTICE 0.3 mcg/kg/min 15.728 mL/hr Rate/Dose Change 12/30/2021 2:25 PM ELEVATOR MECHANIC APPRENTICE 0.25 mcg/kg/min 13.106 mL/h r phenylephrine injection Given 12/30/2021 2:31 PM ELEVATOR MECHANIC APPRENTICE 100 mcg intravenous, As needed, Starting on Tue12/30/21 at 1346, Anesthesia Intra-op Given 12/30/2021 2:12 PM ELEVATOR MECHANIC APPRENTICE 100 mcg Given 12/30/2021 2:10 PM ELEVATOR MECHANIC APPRENTICE 100 mcg propofol 10 mg/mL infusion New Bag 12/30/2021 1:15 50 mcg/kg/min 2 0.97 mL/hr (DIPRIVAN) PM ELEVATOR MECHANIC APPRENTICE intravenous, Continuous Infusion: Per Instructions PRN, Starting on Tue12/30/21 at 1315, Anesthesia Intra-op New Bag 12/30/2021 1:09 PM ELEVATOR MECHANIC APPRENTICE 50 mcg/kg/min 20.97 mL/hr propofoL injection (DIPRIVAN) Given 12/30/2021 12:59 PM ELEVATOR MECHANIC APPRENTICE 140 mg intravenous, As needed, Starting on Tue12/30/21 at 1259, Anesthesia Intra-op rocuronium injection (ZEMURON) Given 12/30/2021 1:12 PM ELEVATOR MECHANIC APPRENTICE 10 mg intravenous, As needed, Starting on Tue12/30/21 at 1301, Anesthesia Intra-op Given 12/30/2021 1:01 PM ELEVATOR MECHANIC APPRENTICE 50 mg sugammadex injection (BRIDION) Given 12/30/2021 3:14 PM ELEVATOR MECHANIC APPRENTICE 139.8 mg intravenous, As needed, Starting on [...] documented as of this encounter Care Teams Cam Maker Relationship Specialty Start Date End Date Elsewhere, Pcp PCP - General Family Medicine 12/25/21 documented as of this encounter
--- OUTSIDE RECORDS SUMMARY | 2022-11-08 14:03 | XMS_ITS | Encounter Summary ---
:1965 Author Organization [facility] Address [address] [place] [address] Care Team Providers Name Role Phone Elsewhere, Pcp Primary Care Provider Unavailable Reason for Visit Outpatient (Routine) - Closed Specialty Diagnoses / Procedures Referred By Contact Refer red To Contact Anesthesiology Diagnoses Preoperative Exam Painful Total Joint Arthroplasty Initial (HCC) Alfredo Herrera [facility] [address] [place] [phone] Referral ID Status Reason Start Date Expiration Date Visits Requ ested Visits Authorized [id number] Closed 10/13/2021 10/13/2022 1 1 Encounter Details Date Type Department Care Team Description 12/29/2021 Comprehensive Visit Preoperative Cayetano Herrera [facility] [address] [place] [phone] Preanesthetic Medical Exam (Primary Dx); Evaluation Center Etta Lyle M.D. 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 ([facility]) # Aneurysm Cerebral Unruptured ([facility]) # Dissection Vertebral Artery ([facility]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 Written and verbal instructions given on medication [...] Lyle M.D. PGY-3, Anesthesiology and Perioperative Medicine [facility] AL CEO documented in this encounter Plan of Treatment [...] COVID19 Pending 12/29/2021 12/29/2021 12/29/2021 4:20 PM GLOBAL CEO Assessment Noted Time PHQ-9 Depression Total Score: 16 02/11/2021 12:00 AM C DT documented as of this encounter Care Teams Paint Roller Winder Relationship Specialty Start Date End Date Elsewhere, Pcp PCP - General Family Medicine 12/25/21 documented as of this encounter
--- OUTSIDE RECORDS SUMMARY | 2022-11-08 14:03 | XMS_ITS | Encounter Summary ---
:1965 Author Organization [facility] Address [address] [place] [id number] Care Team Providers Name Role Phone Elsewhere, Pcp Primary Care Provider Unavailable Encounter Details Date Type Department Care Team Description 12/29/2021 Hospital Encounter Department of Alfredo Herrera Preoper ative Exam; Laboratory Medicine A, O.P.A.-C. Painful Total Joint Arthroplasty Initial (HCC) and Pathology, [address] [place] [address], in [facility] [address] [place] [phone] [place] [address] (Work) [place], [place] [phone] [address] (Fax) [phone] Social History Tobacco Use Types Packs/Day Years [...] you attend adventist or Patient refused 2021 sabianist services? Do [...] THC multivit-min/iron/folic/ Take 1 tablet by 0 [id number] (HAIR, SKIN AND mouth daily. NAILS ADVANCED [...] 12/29/2021 11:34 Results for this RBC AM FITNESS ATTENDANT procedure are i n the results section. CBC WITH Routine 12/29/2021 11:34 Preoperative Ex am Results for this DIFFERENTIAL, B AM FITNESS ATTENDANT Painful Total Joint proce dure are in Arthroplasty Initial the res ults ([facility]) section. TYPE AND SCREEN Routine 12/29/2021 11:34 Preoperative Ex am Results for this AM FITNESS ATTENDANT Painful Total Joint procedur e are in Arthroplasty Initial the res ults ([facility]) section. BASIC METABOLIC Routine 12/29/2021 11:34 Preoperative Ex am Results for this PANEL, S/P AM FITNESS ATTENDANT Painful Total Joint procedur e are in Arthroplasty Initial the res ults ([facility]) section. documented in this encounter Results Antibody Screen, RBC (12/29/2021 11:34 AM FITNESS ATTENDANT) athologist Signature Antibody Negative Negative 12/29/2021 DTL Screen 12:59 PM FITNESS ATTENDANT Specimen Anatomical Collection Method Collection Time Receive d Time (Source) Location / / Volume Laterality Blood 12/29/2021 11:34 12/29/2021 AM FITNESS ATTENDANT 11:58 AM FITNESS ATTENDANT Alfredo Kamara LAB BLOOD BANK TEST ORDERABL ES Performing Organization Address City/State/ZIP Code Phon e Number [facility] - [address] [place], [place] [phone] [facility] [place] [address] Laboratories-[facility] [address] (ABNORMAL) Basic Metabolic Panel (12/29/2021 11:34 AM FITNESS ATTENDANT) [facility] Potassium, S 4.7 3.6 - 5.2 12/29/2021 DTL mmol/L 12:38 PM FITNESS ATTENDANT Sodium, S 143 135 - 145 12/29/2021 DTL mmol/L 12:38 PM FITNESS ATTENDANT Chloride, S 108 (H) 98 - 107 12/29/2021 DTL mmol/L 12:38 PM FITNESS ATTENDANT Bicarbonate, S 24 22 - 29 12/29/2021 DTL mmol/L 12:38 PM FITNESS ATTENDANT Anion Gap 11 7 - 15 12/29/2021 DTL 12:38 PM FITNESS ATTENDANT BUN (Blood Urea 15 6 - 21 12/29/2021 DTL Nitrogen), S mg/dL 12:38 PM FITNESS ATTENDANT Creatinine 0.83 0.59 - 12/29/2021 DTL 1.04 mg/dL 12:38 PM FITNESS ATTENDANT eGFR-Non 78 >=60 12/29/2021 DTL Black/ mL/min/BSA 12:38 PM FITNESS ATTENDANT Monegasque Comment: ----ADDITIONAL INFORMATION---- Estimated GFR calculated using the 2009 CKD_EPI creatinine equation. eGFR-Black/ 90 >=60 mL/min/BSA 2021 12:38 PM FITNESS ATTENDANT DTL Comment: ----ADDITIONAL INFORMATION---- Estimated GFR calculated using the 2009 CKD_EPI creatinine equation. Calcium, Total, S 9.1 8.6 - 10.0 mg/dL 12/29/2021 12:3 8 PM FITNESS ATTENDANT DTL Glucose, S 90 70 - 140 mg/dL 12/29/2021 12:38 PM FITNESS ATTENDANT DTL Specimen Anatomical Collection Method Collection Time Receive d Time (Source) Location / / Volume Laterality Blood (Blood, 12/29/2021 11:34 12/29/2021 Venous) AM FITNESS ATTENDANT 12:13 PM FITNESS ATTENDANT Alfredo Kamara LAB BLOOD ADD-ON Performing Organization Address City/[facility]/ZIP [facility] Phon e Number [facility] - [address] [place] [address] [phone] [facility] [place] [place] [address] [facility] 200 [facility] Type and Screen (with reflex Antibody ID) (12/29/2021 11:34 AM FITNESS ATTENDANT) [facility] Method Time Signature ABORh A Neg Not applicable 12/29/2021 ETRM 12:59 PM FITNESS ATTENDANT Antibody CANCELED 12/29/2021 ETRM Screen 12:59 PM FITNESS ATTENDANT Comment: Result canceled by the ancillar y. Type & Screen Expiration 02/26/2022 23:59 12/29/19 22 12:59 PM FITNESS ATTENDANT ETRM Testing Location [place] DEFAULT 12/29/2021 11:58 AM FITNESS ATTENDANT ETRM Specimen Anatomical Collection Method Collection Time Receive d Time (Source) Location / / Volume Laterality Blood (Blood, 12/29/2021 11:34 12/29/2021 Venous) AM FITNESS ATTENDANT 11:58 AM FITNESS ATTENDANT Alfredo Kamara LAB BLOOD BANK TEST ORDERABL ES Performing Organization Address [facility] Phon e Number [facility] - [address] [place] [address] [phone] [facility] [place] [address] Laboratories-[address] (ABNORMAL) CBC with Differential, Blood (12/29/2021 11:34 AM FITNESS ATTENDANT) [facility] Method Time Signature Hemoglobin 11.2 (L) 11.6 - 12/29/2021 DTL 15.0 g/dL 12:02 PM FITNESS ATTENDANT Hematocrit 34.1 (L) 35.5 - 12/29/2021 DTL 44.9 % 12:02 PM FITNESS ATTENDANT Erythrocytes 4.04 3.92 - 12/29/2021 DTL 5.13 12:02 PM FITNESS ATTENDANT x10(12)/L MCV 84.4 78.2 - 12/29/2021 DTL 97.9 fL 12:02 PM FITNESS ATTENDANT RBC Distrib Width 20.2 (H) 12.2 - 12/29/2021 DTL 16.1 % 12:02 PM FITNESS ATTENDANT Platelet Count 324 157 - 371 12/29/2021 DTL x10(9)/L 12:02 PM FITNESS ATTENDANT Leukocytes 5.1 3.4 - 9.6 12/29/2021 DTL x10(9)/L 12:02 PM FITNESS ATTENDANT Neutrophils 3.08 1.56 - 12/29/2021 DTL 6.45 12:02 PM FITNESS ATTENDANT x10(9)/L Lymphocytes 1.39 0.95 - 12/29/2021 DTL 3.07 12:02 PM FITNESS ATTENDANT x10(9)/L Monocytes 0.43 0.26 - 12/29/2021 DTL 0.81 12:02 PM FITNESS ATTENDANT x10(9)/L Eosinophils 0.17 0.03 - 12/29/2021 DTL 0.48 12:02 PM FITNESS ATTENDANT x10(9)/L Basophils 0.05 0.01 - 12/29/2021 DTL 0.08 12:02 PM FITNESS ATTENDANT x10(9)/L Specimen Anatomical Collection Method Collection Time Receive d Time (Source) Location / / Volume Laterality Blood (Blood, 12/29/2021 11:34 12/29/2021 Venous) AM FITNESS ATTENDANT 11:54 AM FITNESS ATTENDANT Alfredo Kamara LAB BLOOD ADD-ON Performing Organization Address City/State/ZIP Code Phon e Number [facility] - [address] [place] [phone] [facility] [place] [place] [address] Laboratories-[facility] [address] documented in this encounter Visit Diagnoses Diagnosis Preoperative Exam Painful Total Joint Arthroplasty Initial (HCC) documented in this encounter Additional Health Concerns Assessment Noted Time PHQ-9 Depression Total Score: 16 02/11/2021 12:00 AM C DT documented as of this encounter Care Teams Medical Technical Writer Relationship Specialty Start Date End Date Elsewhere, Pcp PCP - General Family Medicine 12/25/21 documented as of this encounter
--- OUTSIDE RECORDS SUMMARY | 2022-11-08 14:03 | XMS_ITS | Encounter Summary ---
:1965 Author Organization [facility] Address [address] [place] [address] Care Team Providers Name Role Phone Elsewhere, Pcp Primary Care Provider Unavailable Encounter Details Date Type Department Care Team Description 12/30/2021 Surgery RST SEBAS MORAN OR Cyrus Polk, ARTHROPLASTY RESECTION [address] [facility] [place] [place] [address] [address] [facility] [phone] [place] [address] Social History Tobacco Use Types Packs/Day Years [...] or the highest technical, or vocational p [place] degree you have received? Sex Assigned at Date Recorded Female 03/01/2019 10:12 AM CDT documented as of this encounter Last Filed Vital Signs Vital Sign Reading Time Taken Comments Blood Pressure 119/74 12/30/2021 12:47 PM MACHINE II TRIMMER Pulse 79 12/30/2021 12:47 PM MACHINE II TRIMMER Temperature 36.8 ??C (98.2 ??F) 12/30/2021 11:22 AM MACHINE II TRIMMER Respiratory Rate 20 12/30/2021 12:47 PM MACHINE II TRIMMER Oxygen Saturation 99% 12/30/2021 12:47 PM MACHINE II TRIMMER Inhaled Oxygen Concentration - - Weight 69.9 kg (154 lb 1.6 12/30/2021 11:22 AM oz) MACHINE II TRIMMER Height 150.5 cm (4' 11.25) 12/30/2021 11:22 AM no shoe s/boots MACHINE II TRIMMER Body Mass Index 30.86 12/30/2021 11:22 AM MACHINE II TRIMMER documented in this encounter Discharge Summaries Dario Carrera M.D. - 01/01/2022 8:50 AM CST DISCHARGE SUMMARY BRIEF OVERVIEW Hospital: [facility] Discharge Provider: Cyrus oPlk M.D. Primary Team: T Orthopedic Surgery - [...] RST ROEI OR DISCHARGE DISPOSITION Home-Health Care [facility] [6] ACTIVE ISSUES REQUIRING FOLLOW [...] were provided to the patient and caregiver(s). INE II TRIMMER documented in this encounter Discharge Instructions AttachmentsThe following attachments cannot be sent through Care Everywhere. Continuous Nerve-Block Infusion System: Often called a ???pain pump?? (Central African) documented in this encounter Medications at Time [...] THC multivit-min/iron/folic/ Take 1 tablet by 0 gur842 (HAIR, SKIN AND mouth daily. NAILS ADVANCED [...] Measures [facility] Inpatient Short Form: -[facility] Basic Mobility (V.2) How much [...] 3-5 steps with a railing?: A Little AM-[facility] Basic Mobility (V.2) Raw Score: 23 AM-[facility] Basic Mobility (V.2) Standardized Score: 50.88 Interpretation: Clinicians answer the -[facility] Inpatient Short Form based on [...] quad cane since it is not available [facility] by prescription. Barriers to Discharge Home: Other [...] (min): 23 min Ruth Gonzalez P.T., D.P.T. INE II TRIMMER Elvira Duncan, RBetsy - 01/01/2022 3:21 PM [...] educational pamphlet Continuous Nerve-Block Infusion System ( [id number]).?? Discussed at home removal of nervecatheter, signs of toxicity, and provided the 20/06 number to call with questions.?? All questions answered. On-Q infusion will end Wednesday 01/03 at 2230. Informed patient she may wait until Tuesday morning to remove if she is sleeping. Note OnQ will not be empty as running at 6ml/hr with fill of 550cc. She is aware of this. INE II TRIMMER Thao You L.I.C.SBrittonWBritton, M.S.W. - 01/01/2022 11:23 [...] Selected Services Address Phone Fax Patient Preferred [facility] Infusion and IV Therapy [address], [place] [address] [phone] -- Contact: Intake NURSING: - Adjust the [...] be managed by Outpatient Facility: [facility] Address: [address] [place] [address] Contact: Princess Jimenez will provide IV access [...] continue to follow. Joe Ervin, M.S.W. 01/01/2022 INE II TRIMMER Gucci Salvador M.D. - 01/01/2022 10:45 AM CST DEMOGRAPHIC INFORMATION [facility] Number:[id number] Patient Name: Angie Mosquera Service: Orthopedics [...] questions answered to patient's satisfaction. Please page [phone] for questions. 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 [id number] Pamela Leonard PharmBrittonDBrtiton, R.Ph. - 01/01/2022 10:14 AM CST Pharmacist [...] on post-operative opioids Pamela Crawford PharmAlejandrina, R.Ph. [phone] Jose Guadalupe Washington M.D. - 01/01/2022 8:31 [...] Date/Time Bacteria / Camelia Culture, Blood #2 [[id number]] Collected: 12/31/21 1604 Lab Status: In process Specimen: Blood, Peripheral Draw Updated: 12/31/211650 Narrative: Received Bactec aerobic and Bactec anaerobic bottles Specimen Information: Specimen ID: [id number] Specimen Source: Blood, Peripheral Draw Specimen Comment: Specimen Source Site: Blood Specimen Collection Start Date: 12/31/2021 4:05 PM Specimen Received Date: 12/31/2021 4:51 PM Specimen ID: [id number] Specimen Source: Blood, Peripheral Draw Specimen Comment: Specimen Source Site: Blood Specimen Collection Start Date: 12/31/2021 4:05 PM Specimen Received Date: 12/31/2021 4:51 PM Specimen ID: [id number] Specimen Source: Blood, Peripheral Draw Specimen Comment: Specimen Source Site: Blood Specimen Collection Start Date: 12/31/2021 4:04 PM Specimen Received Date: 12/31/2021 4:51 PM Bacteria / Camelia Culture, Blood #1 [[id number]] Collected: 12/31/21 1552 Lab Status: In process Specimen: Blood, Peripheral Draw Updated: 12/31/21 1651 Narrative: Received Bactec aerobic and Bactec anaerobic bottles Specimen Information: Specimen ID: [id number] Specimen Source: Blood, Peripheral Draw Specimen Comment: Specimen Source Site: Blood Specimen Collection Start Date: 12/31/2021 3:52 PM Specimen Received Date: 12/31/2021 4:50 PM Specimen ID: [id number] Specimen Source: Blood, Peripheral Draw Specimen Comment: Specimen Source Site: Blood Specimen Collection Start Date: 12/31/2021 3:53 PM Specimen Received Date: 12/31/2021 4:50 PM Specimen ID: [id number] Specimen Source: Blood, Peripheral Draw Specimen Comment: Specimen Source Site: Blood Specimen Collection Start Date: 12/31/2021 3:53 PM Specimen Received Date: 12/31/2021 4:50 PM Bacteria Cult, Aerobe / Anaerobe+Susc [[id number]] Collected: 12/30/21 1411 Lab Status: Preliminary result Specimen: Shoulder, Left Updated: 12/31/21 1601 Bacteria Cult, Aerobe/Anaerobe+Susc No growth to date. Narrative: Bacterial Culture: Placed in Bactec aerobic and Bactec anaerobic bottles Bacteria Cult, Aerobe / Anaerobe+Susc [[id number]] Collected: 12/30/21 1405 Lab Status: Preliminary result Specimen: Synovial Fluid, Left Shoulder Updated: 12/31/21 1601 Bacteria Cult, Aerobe/Anaerobe+Susc No growth to date. Narrative: Bacterial Culture: Placed in Bactec aerobic and Bactec anaerobic bottles Bacteria Cult, Aerobe / Anaerobe+Susc [[id number]] Collected: 12/30/21 1404 Lab Status: Preliminary result Specimen: Shoulder, Left Updated: 12/31/21 1601 Bacteria Cult, Aerobe/Anaerobe+Susc No growth to date. Narrative: Bacterial Culture: Placed in Bactec aerobic and Bactec anaerobic bottles Bacteria Cult, Aerobe / Anaerobe+Susc [[id number]] Collected: 12/30/21 1403 Lab Status: Preliminary result Specimen: Shoulder, Left Updated: 12/31/21 1601 Bacteria Cult, Aerobe/Anaerobe+Susc No growth to date. Narrative: Bacterial Culture: Placed in Bactec aerobic and Bactec anaerobic bottles Bacteria Cult, Aerobe / Anaerobe+Susc [[id number]] Collected: 12/30/21 1403 Lab Status: Preliminary result Specimen: Shoulder, Left Updated: 12/31/21 1601 Bacteria Cult, Aerobe/Anaerobe+Susc No growth to date. Narrative: Bacterial Culture: Placed in Bactec aerobic and Bactec anaerobic bottles SARS Coronavirus 2, Molecular Detection, PCR, Varies Asymptomatic [[id number]] Collected: 12/29/21 1111 Lab Status: Final result [...] ----ADDITIONAL INFORMATION---- This RT-PCR test using the [facility] SARS-CoV-2 Assay ( [employer]) performed on the [facility] Two Module System has received Emergency Use Authorization (EUA) by the U.S. Food and Drug Administration, and is modified from the environmental communications specialist's instructions with a bridging study. Performance characteristics were verified by [facility] in a manner consistent with CLIA requirements. Visit the CDC website: https://www.cdc.gov/coronavirus/ for the most recent guidelines on Coronavirus testing. 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 Primary service to follow labs while patient is hospitalized. [facility] pharmacist to adjust dosing after dismissal 4. [...] Please page Ortho C-ID service pager at [phone] with any questions. ?? Jose Guadalupe Nixon [...] - Date/Time Bacteria Cult, Aerobe / Anaerobe+Susc [[id number]] Collected: 12/30/21 1411 Lab Status: In process Specimen: Shoulder, Left Updated: 12/30/21 1540 Narrative: Bacterial Culture: Placed in Bactec aerobic and Bactec anaerobic bottles Bacteria Cult, Aerobe / Anaerobe+Susc [[id number]] Collected: 12/30/21 1405 Lab Status: In process Specimen: Synovial Fluid, Left Shoulder Updated: 12/30/21 1519 Narrative: Bacterial Culture: Placed in Bactec aerobic and Bactec anaerobic bottles Bacteria Cult, Aerobe / Anaerobe+Susc [[id number]] Collected: 12/30/21 1404 Lab Status: In process Specimen: Shoulder, Left Updated: 12/30/21 1536 Narrative: Bacterial Culture: Placed in Bactec aerobic and Bactec anaerobic bottles Bacteria Cult, Aerobe / Anaerobe+Susc [[id number]] Collected: 12/30/21 1403 Lab Status: In process Specimen: Shoulder, Left Updated: 12/30/21 1533 Narrative: Bacterial Culture: Placed in Bactec aerobic and Bactec anaerobic bottles Bacteria Cult, Aerobe / Anaerobe+Susc [[id number]] Collected: 12/30/21 1403 Lab Status: In process Specimen: Shoulder, Left Updated: 12/30/21 1538 Narrative: Bacterial Culture: Placed in Bactec aerobic and Bactec anaerobic bottles SARS Coronavirus 2, Molecular Detection, PCR, Varies Asymptomatic [[id number]] Collected: 12/29/21 1111 Lab Status: Final result [...] ----ADDITIONAL INFORMATION---- This RT-PCR test using the [facility] SARS-CoV-2 Assay ( [employer] performed on the [facility] Two Module System has received Emergency Use Authorization (EUA) by the U.S. Food and Drug Administration, and is modified from the environmental communications specialist's instructions with a bridging study. Performance characteristics were verified by [facility] in a manner consistent with CLIA requirements. Visit the CDC website: https://www.cdc.gov/coronavirus/ for the most recent guidelines on Coronavirus testing. Fact Sheet for Healthcare Providers: https://www.fda.gov/media/009311/download Fact Sheet for Patients: https://www.fda.gov/media/750297/download ASSESSMENT / PLAN IMPRESSION/REPORT/PLAN #1 Status post [...] House at [facility] [phone] INE II TRIMMER Abrahan Rdz R.N. - 12/31/2021 7:34 AM [...] with onq pump later today or tomorrow INE II TRIMMER Jey Matos D.O. - 12/31/2021 6:53 AM [...] - Date/Time Bacteria Cult, Aerobe / Anaerobe+Susc [[id number]] Collected: 12/30/21 1411 Lab Status: In process Specimen: Shoulder, Left Updated: 12/30/21 1540 Narrative: Bacterial Culture: Placed in Bactec aerobic and Bactec anaerobic bottles Bacteria Cult, Aerobe / Anaerobe+Susc [[id number]] Collected: 12/30/21 1405 Lab Status: In process Specimen: Synovial Fluid, Left Shoulder Updated: 12/30/21 1519 Narrative: Bacterial Culture: Placed in Bactec aerobic and Bactec anaerobic bottles Bacteria Cult, Aerobe / Anaerobe+Susc [[id number]] Collected: 12/30/21 1404 Lab Status: In process Specimen: Shoulder, Left Updated: 12/30/21 1536 Narrative: Bacterial Culture: Placed in Bactec aerobic and Bactec anaerobic bottles Bacteria Cult, Aerobe / Anaerobe+Susc [[id number]] Collected: 12/30/21 1403 Lab Status: In process Specimen: Shoulder, Left Updated: 12/30/21 1533 Narrative: Bacterial Culture: Placed in Bactec aerobic and Bactec anaerobic bottles Bacteria Cult, Aerobe / Anaerobe+Susc [[id number]] Collected: 12/30/21 1403 Lab Status: In process Specimen: Shoulder, Left Updated: 12/30/21 1538 Narrative: Bacterial Culture: Placed in Bactec aerobic and Bactec anaerobic bottles SARS Coronavirus 2, Molecular Detection, PCR, Varies Asymptomatic [[id number]] Collected: 12/29/21 1111 Lab Status: Final result [...] ----ADDITIONAL INFORMATION---- This RT-PCR test using the [facility] SARS-CoV-2 Assay ( [employer]) performed on the [facility] Two Module System has received Emergency Use Authorization (EUA) by the U.S. Food and Drug Administration, and is modified from the environmental communications specialist's instructions with a bridging study. Performance characteristics were verified by [facility] in a manner consistent with CLIA requirements. Visit the CDC website: https://www.cdc.gov/coronavirus/ for the most recent guidelines on Coronavirus testing. Fact Sheet for Healthcare Providers: https://www.fda.gov/media/582573/download Fact Sheet for Patients: https://www.fda.gov/media/541347/download ASSESSMENT / PLAN IMPRESSION/REPORT/PLAN #1 Status post [...] Jey Matos, DO Shoulder & Elbow Fellow [facility] Orthopaedic Surgery For any questions or concerns from 6 am until 6 pm, please page Jam service For urgent matters from 6 pm until 6 am, please page Ortho House at [facility] [phone] INE II TRIMMER Abrahan Rdz R.N. - 12/30/2021 4:39 PM [...] Care Plan:continue current management per plan/IPS protocol INE II TRIMMER Feli Viveros, Pharm.D., R.Ph. - 12/30/2021 11:33 [...] She is registered with the state of [place] for medical cannabis and she gets her [...] Take 150 mg by mouth every morning. iydgrnfuly-kyquntoddnpin-ergr (ESGIC) 50-325-40 mg per tablet Past Week [...] by mouth 2 (two) times a day. INE II TRIMMER documented in this encounter Procedure Notes Soraida [...] to release the adhesive from the skin. 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 Anxiety Generalized Disorder ??? Chronic Pain [...] (HCC) ??? Nicotine Dependence Unspecified ??? 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 Direct [...] Right Lives With: Alone Receives Help From: bath house attendant, Family, Friend(s) ADL Assistance: Required assistance ADL Assistance Comments: Gets help from [employer] for her bath/shower and for her meals IADL/Homemaking Assistance: Required assistance IADL/Homemaking Assistance Comments: Gets help for housecleaning Driving: Independent Occupational Role: On disability Prior Mobility/Functional Transfers Level of [place]: Modified independent Gait Devices/Wheelchair Used: Cane Gait [...] session with call light in reach and [employer] present, all needs metand questions answered. Contact monitoring: PPE used during therapy: Therapist was wearing the following PPE throughout entire session: surgicalmask and eye protection Patient was wearing a mask during therapy session: yes, when out of room Outcome Measures AM-[facility] Inpatient Short Form: AM-[facility] Basic Mobility (V.2) How much [...] 3-5 steps with a railing?: A Lot -[facility] Basic Mobility (V.2) Raw Score: 17 -[facility] Basic Mobility (V.2) Standardized Score: 39.67 Interpretation: Clinicians answer the -[facility] Inpatient Short Form based on [...] (min): 36 min Ruth Gonzalez P.T., D.P.T. INE II TRIMMER Thao You L.I.C.S.W., M.S.W. - 12/31/2021 2:04 PM CSTAssociated Order(s): IP CONSULT TO CARE MANAGEMENT; IP CONSULT TO CARE MANAGEMENT; IP CONSULT TO CARE MANAGEMENT Psychosocial Assessment SUBJECTIVE DEMOGRAPHIC INFORMATION Person(s) present during interview: Patient Primary care clinic and provider: [facility] Primary Language: Central African Legal Information: Legal decision maker for self [...] / Household Status: Patient resides alone in [place], [place]. She lives in a two bedroom apartment. Patient has four adultchildren two of whom live in [place]. Patient son Rafal lives next door to patient. Support Systems: Family members, Friends/neighbors. We have not received permission to contact them. Primary caregiver: Self Accompanied by/Relationship: None Support System: Family members, Friends/neighbors Spirituality / Congregational / Culture: , None History: No Education: High school Employment: Disabled Psychosocial Risk Factors impacting the patient: Resides alone, mental health issues Abuse, Neglect, Maltreatment, Trauma: Current: None reported. Past: None reported. ENVIRONMENTAL SUPPORTS Current Living Situation: Private residence Patient's Home Environment: Resides in a two bedroom apartment on the [address] [facility] Care Facility Name (if applicable): NA Anticipated [...] Behavior: Oriented Communication: Reads, writes and speaks Central African It is anticipated that the patient will need assistance with .Dressing,bathing, meal prep, housekeeping, shopping ASSISTIVE DEVICES Patient has the following equipment: Eyeglasses, Dentures upper, Dentures lower, cane, walker Patient anticipates potentially needing the following additional equipment: None Transportation needs: Independent to drive, support from family and friends SERVICES REQUESTED Infusion therapy [place]IFF Formal and Informal Resources: Patient receives home health aid services three times per week and jail visit one time every two weeks through [facility]. FINANCES/INSURANCE Primary insurance: MEDICARE A AND B Secondary insurance: MEDICA ADVANCE DIRECTIVES Advance Directive: Patient does not have advance directive, does not want information DISCHARGE PLANNING Patient is planning on returning home upon her discharge. She currently receives home health aid services and jail through [facility]. Patient also has support from a [...] good support group consisting of family, friends andhowe health services through [facility]. INTERVENTIONS ?? Psychosocial assessment ?? Rapport building ?? Education on coping with chronic pain. PLAN ?? Social work will continue to follow for discharge planning and support. ?? Social work did speak with Pat at [facility] to confirm home health services. ?? Social work will work on infusion therapy referrals as well as home health/outpatient picc site care and labs. Anticipated barriers to the transition of care/plan: None Joe Ervin, M.S.W. 12/31/2021 INE II TRIMMER Jose Guadalupe Nixon M.D. - 12/31/2021 7:31 [...] resistance on OSH AST. She presented to [facility] (unclear if on antibiotics) for further evaluation given persistent L shoulder pain 08/2021 prompting aspiration (09/25/21) which revealed elevated TNC (94222) with 81% PMNs with cultures positive for1 [...] debridement. The patient was subsequently admitted to [facility] for further management. Intraoperative cultures and [...] - Date/Time Bacteria Cult, Aerobe / Anaerobe+Susc [[id number]] Collected: 12/30/21 1411 Lab Status: In process Specimen: Shoulder, Left Updated: 12/30/21 1540 Narrative: Bacterial Culture: Placed in Bactec aerobic and Bactec anaerobic bottles Bacteria Cult, Aerobe / Anaerobe+Susc [[id number]] Collected: 12/30/21 1405 Lab Status: In process Specimen: Synovial Fluid, Left Shoulder Updated: 12/30/21 1519 Narrative: Bacterial Culture: Placed in Bactec aerobic and Bactec anaerobic bottles Bacteria Cult, Aerobe / Anaerobe+Susc [[id number]] Collected: 12/30/21 1404 Lab Status: In process Specimen: Shoulder, Left Updated: 12/30/21 1536 Narrative: Bacterial Culture: Placed in Bactec aerobic and Bactec anaerobic bottles Bacteria Cult, Aerobe / Anaerobe+Susc [[id number]] Collected: 12/30/21 1403 Lab Status: In process Specimen: Shoulder, Left Updated: 12/30/21 1533 Narrative: Bacterial Culture: Placed in Bactec aerobic and Bactec anaerobic bottles Bacteria Cult, Aerobe / Anaerobe+Susc [[id number]] Collected: 12/30/21 1403 Lab Status: In process Specimen: Shoulder, Left Updated: 12/30/21 1538 Narrative: Bacterial Culture: Placed in Bactec aerobic and Bactec anaerobic bottles SARS Coronavirus 2, Molecular Detection, PCR, Varies Asymptomatic [[id number]] Collected: 12/29/21 1111 Lab Status: Final result [...] ----ADDITIONAL INFORMATION---- This RT-PCR test using the [facility] SARS-CoV-2 Assay ( [employer]) performed on the [facility] Two Module System has received Emergency Use Authorization (EUA) by the U.S. Food and Drug Administration, and is modified from the environmental communications specialist's instructions with a bridging study. Performance characteristics were verified by [facility] in a manner consistent with CLIA requirements. Visit the CDC website: https://www.cdc.gov/coronavirus/ for the most recent guidelines on Coronavirus testing. 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 Please page the [facility]-ID service pager at [phone] with questions. Thank you for the consultation. Jose Guadalupe Nixon M.D. INE II TRIMMER Associated attestation - Gucci Salvador M.D. - 12/31/2021 6:07 PM MACHINE II TRIMMER DEMOGRAPHIC INFORMATION Clinic Number:[phone] Patient Name: Angie [...] prescriptions, and Oxycodone. Oxycodone filled here at [facility] pharmacy. Patient going home with an interscalene block OnQ pump. Transportation provided by her son. INE II TRIMMER Fanny Sifuentes R.N. - 12/31/2021 11:00 PM [...] Nasal mucous membranes remain intact Outcome: Progressing INE II TRIMMER Ezequiel Hernandez R.N. - 12/30/2021 10:27 PM [...] staff assistance to bathroom. Navin Hernandez R.N. INE II TRIMMER documented in this encounter OR Notes Op Note - Cyrus Polk M.D. - 12/30/2021 2:50 PM CST STAFF: Cyrus Polk M.D. RESIDENT: Dario Carrera M.D. PRE-OPERATIVE DIAGNOSIS Left infected reverse arthroplasty. POST-OPERATIVE DIAGNOSIS Left infected reverse arthroplasty. A clinical nursing assistant was necessary for one or more [...] Cyrus Polk M.D. CT CT Job ID: [id number] INE II TRIMMER documented in this encounter Miscellaneous Notes Hospital [...] and pain is controlled on oral medications. INE II TRIMMER documented in this encounter Plan of Treatment Scheduled Referrals Name Type Priority Associated Diagnoses Order [facility] Outpatient Referral Routine Direct Infection Of Ordered: Health Referral Left Shoulder In 01/01/20 22 Infectious And Parasitic Diseases Classified Elsewhere (HCC) documented as of this encounter Procedures Procedure Name Priority Date/Time Associated Comments Diagnosis PLACE PERIPHERALLY Routine 01/01/2022 12:11 Resul ts for this INSERTED CENTRAL PM MACHINE II TRIMMER procedure a re in CATHETER (PICC) the results section. REMOTE OXIMETRY Routine 12/31/2021 5:23 MONITORING CONT. PM MACHINE II TRIMMER REMOTE OXIMETRY Routine 12/31/2021 5:23 MONITORING CONT. PM MACHINE II TRIMMER BACTERIA / CAMELIA Routine 12/31/2021 4:04 Result s for this CULTURE, BLOOD PM MACHINE II TRIMMER procedure are in the results section. BACTERIA / CAMELIA Routine 12/31/2021 3:52 Result s for this CULTURE, BLOOD PM MACHINE II TRIMMER procedure are in the results section. ADULT OXYGEN THERAPY Routine 12/31/2021 8:01 AM MACHINE II TRIMMER CBC WITH Routine 12/31/2021 4:25 Results for this DIFFERENTIAL, B AM MACHINE II TRIMMER procedure ar e in the results section. BASIC METABOLIC Routine 12/31/2021 4:25 Results f or this PANEL, S/P AM MACHINE II TRIMMER procedure are i n the results section. ADULT OXYGEN THERAPY Routine 12/30/2021 8:01 PM MACHINE II TRIMMER ADULT OXYGEN THERAPY Routine 12/30/2021 5:12 PM MACHINE II TRIMMER ADULT OXYGEN THERAPY Routine 12/30/2021 5:12 PM MACHINE II TRIMMER ADULT OXYGEN THERAPY Routine 12/30/2021 3:46 PM MACHINE II TRIMMER ADULT OXYGEN THERAPY Routine 12/30/2021 3:46 PM MACHINE II TRIMMER DX SHOULDER LEFT 1 RAD - Timed (for 12/30/2021 3:41 Re sults for this VIEW specific PM MACHINE II TRIMMER procedure are i n dates/times) the results section. 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 BACTERIA CULT, Routine 12/30/2021 2:11 Results fo r this AEROBE/ANAEROBE+SUSC PM MACHINE II TRIMMER procedu re are in the results section. BACTERIA CULT, Routine 12/30/2021 2:05 Results fo r this AEROBE/ANAEROBE+SUSC PM MACHINE II TRIMMER procedu re are in the results section. BACTERIA CULT, Routine 12/30/2021 2:04 Results fo r this AEROBE/ANAEROBE+SUSC PM MACHINE II TRIMMER procedu re are in the results section. BACTERIA CULT, Routine 12/30/2021 2:03 Results fo r this AEROBE/ANAEROBE+SUSC PM MACHINE II TRIMMER procedu re are in the results section. BACTERIA CULT, Routine 12/30/2021 2:03 Results fo r this AEROBE/ANAEROBE+SUSC PM MACHINE II TRIMMER procedu re are in the results section. 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 ? 01/01/2022 12:13 PM [...] to release the adhesive from the skin. [email or web address]/products/secur [email or web address] Dario Carrera M.D. PROCEDURE/MINOR SURGICAL ORD ERABLES Performing Organization Address City/State/ZIP Code Phon e Number MMODAL MMODAL NA Bacteria / Camelia Culture, Blood #2 (12/31/2021 4:04 PM MACHINE II TRIMMER) [facility] Method Time Signature Bacteria/Valerie No growth 01/05/2022 DTL da Culture, after 5 5:02 PM MACHINE II TRIMMER Blood days of incubation. Specimen (Source) Anatomical Collection Method Collection Time Re ceived Time Location / / Volume Laterality Blood (Blood, 12/31/2021 4:04 12/31/2021 4:51 Peripheral Draw) PM MACHINE II TRIMMER PM MACHINE II TRIMMER Comment: Specimen Source Site: Blood Narrative [facility] - 01/05/2022 5:02 PM MACHINE II TRIMMER Received Bactec aerobic and Bactec anaer obic bottles Dario Carrera M.D. LAB MICROBIOLOGY - GENERAL O PATERASARAH Performing Organization Address City/[facility]/ZIP [facility] Phon e Number [facility] - [address] [phone] [facility] [address] Bacteria / Camelia Culture, Blood #1 (12/31/2021 3:52 PM MACHINE II TRIMMER) [facility] Method Time Signature Bacteria/Valerie No growth 01/05/2022 DTL da Culture, after 5 5:02 PM MACHINE II TRIMMER Blood days of incubation. Specimen (Source) Anatomical Collection Method Collection Time Re ceived Time Location / / Volume Laterality Blood (Blood, 12/31/2021 3:52 12/31/2021 4:50 Peripheral Draw) PM MACHINE II TRIMMER PM MACHINE II TRIMMER Comment: Specimen Source Site: Blood Narrative [facility] - 01/05/2022 5:02 PM MACHINE II TRIMMER Received Bactec aerobic and Bactec anaer obic bottles Dario Carrera M.D. LAB MICROBIOLOGY - GENERAL O PATERABLES Performing Organization Address [facility] Phon e Number [facility] - [address] [place] [place], [place] [id number] [place] [address] (ABNORMAL) CBC with Differential, Blood (12/31/2021 4:25 AM MACHINE II TRIMMER) [facility] Method Time Signature Hemoglobin 8.9 (L) 11.6 - 12/31/2021 DTL 15.0 g/dL 5:15 AM MACHINE II TRIMMER Hematocrit 27.3 (L) 35.5 - 12/31/2021 DTL 44.9 % 5:15 AM MACHINE II TRIMMER Erythrocytes 3.26 (L) 3.92 - 12/31/2021 DTL 5.13 5:15 AM MACHINE II TRIMMER x10(12)/L MCV 83.7 78.2 - 12/31/2021 DTL 97.9 fL 5:15 AM MACHINE II TRIMMER RBC Distrib Width 19.6 (H) 12.2 - 12/31/2021 DTL 16.1 % 5:15 AM MACHINE II TRIMMER Platelet Count 274 157 - 371 12/31/2021 DTL x10(9)/L 5:15 AM MACHINE II TRIMMER Leukocytes 6.6 3.4 - 9.6 12/31/2021 DTL x10(9)/L 5:15 AM MACHINE II TRIMMER Neutrophils 4.91 1.56 - 12/31/2021 DTL 6.45 5:15 AM MACHINE II TRIMMER x10(9)/L Lymphocytes 1.10 0.95 - 12/31/2021 DTL 3.07 5:15 AM MACHINE II TRIMMER x10(9)/L Monocytes 0.61 0.26 - 12/31/2021 DTL 0.81 5:15 AM MACHINE II TRIMMER x10(9)/L Eosinophils <0.03 0.03 - 12/31/2021 DTL 0.48 5:15 AM MACHINE II TRIMMER x10(9)/L Basophils <0.03 0.01 - 12/31/2021 DTL 0.08 5:15 AM MACHINE II TRIMMER x10(9)/L Specimen Anatomical Collection Method Collection Time Receive d Time (Source) Location / / Volume Laterality Blood (Blood, 12/31/2021 4:25 AM 12/31/19 5:04 Venous) MACHINE II TRIMMER AM MACHINE II TRIMMER Dario Carrera M.D. LAB BLOOD ADD-ON Performing Organization Address City/State/ZIP Code Phon e Number [facility] - [address] [place] [address] [facility] [place] [address] [facility] 200 [facility] (ABNORMAL) Basic Metabolic Panel (12/31/2021 4:25 AM MACHINE II TRIMMER) P athologist Signature Potassium, S 4.4 3.6 - 5.2 12/31/2021 DTL mmol/L 5:35 AM MACHINE II TRIMMER Sodium, S 134 (L) 135 - 145 12/31/2021 DTL mmol/L 5:35 AM MACHINE II TRIMMER Chloride, S 103 98 - 107 12/31/2021 DTL mmol/L 5:35 AM MACHINE II TRIMMER Bicarbonate, S 22 22 - 29 12/31/2021 DTL mmol/L 5:35 AM MACHINE II TRIMMER Anion Gap 9 7 - 15 12/31/2021 DTL 5:35 AM MACHINE II TRIMMER BUN (Blood Urea 21 6 - 21 12/31/2021 DTL Nitrogen), S mg/dL 5:35 AM MACHINE II TRIMMER Creatinine 0.74 0.59 - 12/31/2021 DTL 1.04 mg/dL 5:35 AM MACHINE II TRIMMER eGFR-Non 90 >=60 12/31/2021 DTL Black/ mL/min/BSA 5:35 AM MACHINE II TRIMMER Swedish Comment: ----ADDITIONAL INFORMATION---- Estimated GFR calculated using the 2009 CKD_EPI creatinine equation. eGFR-Black/ >90 >=60 mL/min/BSA 2021 5:35 AM MACHINE II TRIMMER DTL Comment: ----ADDITIONAL INFORMATION---- Estimated GFR calculated using the 2009 CKD_EPI creatinine equation. Calcium, Total, S 8.7 8.6 - 10.0 mg/dL 12/31/2021 5:35 AM MACHINE II TRIMMER DTL Glucose, S 138 70 - 140 mg/dL 12/31/2021 5:35 AM MACHINE II TRIMMER D TL Specimen Anatomical Collection Method Collection Time Receive d Time (Source) Location / / Volume Laterality Blood (Blood, 12/31/2021 4:25 AM 12/31/19 5:18 Venous) MACHINE II TRIMMER AM MACHINE II TRIMMER Dario Carrera M.D. LAB BLOOD ADD-ON Performing Organization Address City/State/[facility] Code Phon e Number [facility] - [address] [place], [place] [address] [facility] [place] [address] [facility] [address] DX Shoulder Left 1 View (12/30/2021 3:41 PM MACHINE II TRIMMER) Anatomical Region Laterality Modality Upper Extremity, Shoulder, Musculoskeletal RST LOS, Left Computed Radiography Musculoskeletal ARZ LOS, Muskuloskeletal FLA LOS Specimen (Source) Anatomical Collection Method Collection Time Re ceived Time Location / / Volume Laterality 12/30/2021 3:54 PM MACHINE II TRIMMER Impressions 12/30/2021 3:59 PM MACHINE II TRIMMER Postoperative changes of a left shoulder arthroplasty resection and placement of an antibiotic spacer. Negat lalo for postoperative purposes. Narrative 12/30/2021 3:59 PM MACHINE II TRIMMER EXAM: ??DX SHOULDER LEFT 1 VIEW Procedure Note Timothy Resendiz M.D. - 12/30/2021Forma tting of this note might be different from the original. EXAM: DX SHOULDER LEFT 1 VIEW IMPRESSION: Postoperative changes of a left shoulder arthroplasty resection and placement of an antibiotic spacer. Negat lalo for postoperative purposes. Dario Carrera M.D. IMG DIAGNOSTIC IMAGING [facility] Surgical Pathology, Frozen Lab (12/30/2021 2:15 PM MACHINE II TRIMMER) Component Value Ref Test Analysis Performed At [facility] Range Method Time Signature 01/01/2022 METH 8:22 AM MACHINE II TRIMMER Participated in Kelly Howard, 01/01/2022 METH the D.O.-Pathology 8:22 AM MACHINE II TRIMMER Interpretation Resident Report Solomon Marcum M.D. 01/01/2022 METH electronically 8:22 AM MACHINE II TRIMMER signed by I verify that I have examined all relevant slides/materials for the specimen(s) and rendered or confirmed the diagnosis. Frozen A. ??Synovium, left shoulder, excision: ??Synovial tissue 01/01/2022 METH Intraoperative with 8:22 AM MACHINE II TRIMMER Report acute inflammation (>5 neutrophils/high power field). Signed by Solomon Marcum M.D. 12/31/2021 8:17 AM Gross Description A. ??Received fresh labeled left shoulder is a 1.4 x 0.9 x 01/01/2022 METH 0.4 cm aggregate of red and campbell fibrous tissue, which is 8:22 AM MACHINE II TRIMMER soft. ??All submitted for frozen and permanent sections. Grossed by Nikki Gallardo. Block Summary A Left shoulder 01/01/2022 METH A1 Left shoulder-frozen 8:22 AM MACHINE II TRIMMER Interpretation FINAL DIAGNOSIS 01/01/2022 METH 8:22 AM MACHINE II TRIMMER A. ??Synovium, left shoulder, excision: ??Synovial tissue with acute inflammation (>5 neutrophils/high power field). Specimen (Source) Anatomical Collection Method Collection Time Re ceived Time Location / / Volume Laterality Tissue (Shoulder, 12/30/2021 2:15 PM Left) MACHINE II TRIMMER Narrative This result has an attachment that is no t available. Cyrus Polk M.D. LAB SURG PATH ORDERABLES Performing Organization Address City/State/ZIP Code Phon e Number [facility] - [address] [place], [place] [address] [facility] [place] [address] [facility] [address] Bacteria Cult, Aerobe / Anaerobe+Susc (12/30/2021 2:11 PM MACHINE II TRIMMER) [facility] Method Time Signature Bacteria Cult, No growth 01/13/2022 DTL Aerobe/Anaerob after 14 4:02 PM MACHINE II TRIMMER e+Susc days of incubation. Specimen Anatomical Collection Method Collection Time Receive d Time (Source) Location / / Volume Laterality Shoulder, Left 12/30/2021 2:11 PM 022 3:38 MACHINE II TRIMMER PM MACHINE II TRIMMER Comment: Specimen Source Site: Tissue #4 Narrative [facility] - 01/13/2022 4:02 PM MACHINE II TRIMMER Bacterial Culture: Placed in Bactec aero bic and Bactec anaerobic bottles Cyrus Polk M.D. LAB MICROBIOLOGY - GENERAL O RDERABLES Performing Organization Address City/State/ZIP Code Phon e Number [facility] - [facility] [address] [place], [place] [address] [facility] [place] [address] [facility] [address] (ABNORMAL) Bacteria Cult, Aerobe / Anaerobe+Susc (12/30/2021 2:05 PM MACHINE II TRIMMER) Component Value Ref Test Analysis Performed At [facility] Method Time Signature Bacteria STAPHYLOCOCCUS EPIDERMIDIS 01/11/2022 DT L Cult, Growth after 4 days 7:55 AM MACHINE II TRIMMER Aerobe/Anaero (A) be+Susc Comment: Semi-Urgent Result. Semi-Urgent This is a semi-urgent result [facility] - ([facility]) [facility] Specimen Anatomical Collection Method Collection Time Receive d Time (Source) Location / / Volume Laterality Synovial Fluid, 12/30/2021 2:05 PM 2021 3:17 Left Shoulder MACHINE II TRIMMER PM MACHINE II TRIMMER Comment: Specimen Source Site: Fluid Narrative [facility] - 01/11/2022 7:55 AM MACHINE II TRIMMER Bacterial Culture: Placed in Bactec aero bic [...] - GENERAL O MARY Performing Organization Address City/[facility] Phon e Number [facility] - [address] [place] [address] Bacteria Cult, Aerobe / Anaerobe+Susc (12/30/2021 2:04 PM MACHINE II TRIMMER) [facility] Method Time Signature Bacteria Cult, No growth 01/13/2022 [facility] Aerobe/Anaerob after 14 4:02 PM MACHINE II TRIMMER e+Susc days of incubation. Specimen Anatomical Collection Method Collection Time Receive d Time (Source) Location / / Volume Laterality Shoulder, Left 12/30/2021 2:04 PM 022 3:34 MACHINE II TRIMMER PM MACHINE II TRIMMER Comment: Specimen Source Site: Tissue #3 Narrative [facility] - 01/13/2022 4:02 PM MACHINE II TRIMMER Bacterial Culture: Placed in Bactec aero bic and Bactec anaerobic bottles Cyrus Polk M.D. LAB MICROBIOLOGY - GENERAL O MARY Performing Organization Address City/[facility] Phon e Number [facility] - [address] Bacteria Cult, Aerobe / Anaerobe+Susc (12/30/2021 2:03 PM MACHINE II TRIMMER) Patholo gist Method Time Signature Bacteria Cult, No growth 01/13/2022 DTL Aerobe/Anaerob after 14 4:02 PM MACHINE II TRIMMER e+Susc days of incubation. Specimen Anatomical Collection Method Collection Time Receive d Time (Source) Location / / Volume Laterality Shoulder, Left 12/30/2021 2:03 PM 022 3:37 MACHINE II TRIMMER PM MACHINE II TRIMMER Comment: Specimen Source Site: Tissue #2 Narrative [facility] - 01/13/2022 4:02 PM MACHINE II TRIMMER Bacterial Culture: Placed in Bactec aero bic and Bactec anaerobic bottles Cyrus Polk M.D. LAB MICROBIOLOGY - GENERAL O MARY Performing Organization Address City/[facility] Phon e Number [facility] - [address] [address] [facility] Bacteria Cult, Aerobe / Anaerobe+Susc (12/30/2021 2:03 PM MACHINE II TRIMMER) [facility] gist Method Time Signature Bacteria Cult, No growth 01/13/2022 DTL Aerobe/Anaerob after 14 4:02 PM MACHINE II TRIMMER e+Susc days of incubation. Specimen Anatomical Collection Method Collection Time Receive d Time (Source) Location / / Volume Laterality Shoulder, Left 12/30/2021 2:03 PM 022 3:31 MACHINE II TRIMMER PM MACHINE II TRIMMER Comment: Specimen Source Site: Tissue #1 [facility] - 01/13/2022 4:02 PM MACHINE II TRIMMER Bacterial Culture: Placed in Bactec aero bic and Bactec anaerobic bottles Cyrus Polk M.D. 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 Left Pain [...] tablet 1,000 mg Given 01/01/2022 11:36 AM MACHINE II TRIMMER 1,00 0 mg (TYLENOL) 1,000 mg, oral, Every 6 hours, First dose on Tue12/30/21 at 1800 Given 01/01/2022 6:28 AM MACHINE II TRIMMER 1,000 mg Given 12/31/2021 11:51 PM MACHINE II TRIMMER 1,000 mg albuterol nebulizer solution 2.5 mg Given 12/31/2021 4:44 PM MACHINE II TRIMMER 2.5 mg 2.5 mg, nebulization, Every 6 hours PRN, wheezing, Starting on Tue12/30/21 at 1711, Albuterol nebs were interchanged for albuterol/levalbuterol MDI (same frequency) atorvastatin tablet 80 mg (LIPITOR) Given 12/31/2021 8:57 PM MACHINE II TRIMMER 80 mg 80 mg, oral, Daily at bedtime, First dose on Tue12/30/21 at 2100 Given 12/30/2021 9:55 PM MACHINE II TRIMMER 80 mg benzonatate capsule 100 mg (TESSALON PER LES) Given 01/01/2022 3:10 AM MACHINE II TRIMMER 100 mg 100 mg, oral, 3 times daily PRN, cough, Starting on Tue12/31/21 at 1702, Swallow whole. Do NOT crush, chew or open capsule. Given 12/31/2021 5:39 PM MACHINE II TRIMMER 100 mg bupivacaine PF 0.2 % 550 mL in NaCl New Bag 01/01/2022 3:15 PM MACHINE II TRIMMER 6 mL/hr 6 mL/hr 0.9% On-Q pain pump (CB004) 6 mL/hr, nerve catheter, Continuous, Starting on Tue01/01/22 at 1500, PACU & Post-Op, Location: Nerve Catheter Location, Nerve Catheter Location: Interscalene, Device: On-Q Pump bupivacaine PF 0.2 % in Rate/Dose Verify 01/01/2022 1:00 AM MACHINE II TRIMMER 6 mL/ hr 6 mL/hr NaCl 0.9% 341 mL infusion (MARCAINE) 6 mL/hr, nerve catheter, Continuous, Starting on Tue12/30/21 at 1600, PACU & Post-Op, Nerve Catheter Location: Interscalene, Device: Hospital Infusion Pump Rate/Dose Verify 12/31/2021 12:11 AM MACHINE II TRIMMER 6 mL/hr 6 mL/hr New Bag 12/30/2021 3:49 PM MACHINE II TRIMMER 6 mL/hr 6 mL/hr buPROPion XL 24 hr tablet 150 mg (WELLBUTRIN Given 02/2022 8:35 AM MACHINE II TRIMMER 150 mg XL) 150 mg, oral, Every morning, First dose on Tue12/31/21 at 0900, Swallow whole. Do NOT crush, chew, or split tablet. Given 12/31/2021 8:16 AM MACHINE II TRIMMER 150 mg calcium carbonate chewable tablet Given 12/31/2021 11: 46 PM MACHINE II TRIMMER 400 mg of calcium 400 mg of calcium (TUMS) 400 mg of calcium, oral, Every 2 hour PRN, indigestion, Starting on Tue12/30/21 at 1711, Doses listed are in mg of elemental calcium. Take with food. 500 mg calcium carbonate contains 200 mg of elemental calcium. Given 12/31/2021 9:15 PM MACHINE II TRIMMER 400 mg of calcium carboxymethylcellulose 0.5 % ophthalmic Given 01/01/2022 1:15 AM MACHINE II TRIMMER 2 drops solution 2 drop (REFRESH PLUS) 2 drop, both eyes, 4 times daily PRN, dry eyes, Starting on Tue12/30/21 at 1711 Given 12/31/2021 12:31 PM MACHINE II TRIMMER 2 drops Given 12/31/2021 12:23 AM MACHINE II TRIMMER 2 drops cefTRIAXone in dextrose (iso-osm) IVPB New Bag 01/01/2022 2:38 PM MACHINE II TRIMMER 2 g 200 mL/hr 2 g (ROCEPHIN) 2 g, intravenous, at 200 mL/hr, Administer over 15 Minutes, Daily before lunch, First dose on Tue01/01/22 at 1345, Drug Monitoring Program: Pharmacist to adjust medication dosing based on indication and drug clearance factors., Indications: Bone and/or joint infection cetirizine tablet 10 mg (ZyrTEC) Given 01/01/2022 8:35 AM MACHINE II TRIMMER 10 mg 10 mg, oral, 2 times daily, First dose on Tue12/30/21 at 2100, Drug Monitoring Program: Pharmacist to adjust medication dosing based on indication and drug clearance factors. Given 12/31/2021 8:57 PM MACHINE II TRIMMER 10 mg Given 12/31/2021 8:16 AM MACHINE II TRIMMER 10 mg cholecalciferol (vitamin D3) tablet 25 m cg Given 01/01/2022 8:35 AM MACHINE II TRIMMER 25 mcg 25 mcg, oral, Daily, First dose on Tue12/31/21 at 0900, cholecalciferol (vitamin D3) orderable was interchanged for cholecalciferol (vitamin D3) tablet/capsule Given 12/31/2021 8:16 AM MACHINE II TRIMMER 25 mcg D5W infusion 10-250 mL/hr, intravenous, [...] 5 mg (VALIUM) Given 12/31/2021 12:31 PM MACHINE II TRIMMER 5 mg 5 mg, oral, 4 times daily PRN, muscle spasms, Starting on Tue12/30/21 at 2243 Given 12/31/2021 1:59 AM MACHINE II TRIMMER 5 mg diphenhydrAMINE capsule 25 mg (BENADRYL) 25 mg, oral, Daily PRN, itching, Starting on Tue 2 at 0854 diphenhydrAMINE capsule 75 mg (BENADRYL) Given 01/01/2022 8:49 AM MACHINE II TRIMMER 75 mg 75 mg, oral, Bedtime PRN, sleep, Starting on Tue12/30/21 at 1715 FLUoxetine capsule 80 mg (PROzac) Given 01/01/2022 8:34 AM MACHINE II TRIMMER 80 mg 80 mg, oral, Daily, First dose on Tue12/31/21 at 0900, FLUoxetine orderable was interchanged for FLUoxetine tablet/capsule Given 12/31/2021 8:16 AM MACHINE II TRIMMER 80 mg fluticasone furoate 100 mcg/actuation Given 01/01/2022 8:[address] 2 puffs inhaler 2 puff (ARNUITY ELLIPTA) 2 puff, inhalation, 2 times daily, First dose on Tue12/30/21 at 2100, fluticasone furoate 100 mcg was interchanged for fluticasone MDI 110 mcg Given 12/31/2021 9:04 PM MACHINE II TRIMMER 2 puffs Given 12/31/2021 8:17 AM MACHINE II TRIMMER 2 puffs gentamicin powder (for bone Given 12/30/2021 2:40 PM MACHINE II TRIMMER 4 vials Left Shoulder cement) As needed, Starting on Tue12/30/21 at 1440, Intra-Op heparin PF flush syringe 50-150 Units 50-150 Units, intravenous, Once as neede d, line care, 50 units (5 mL) to each lumen of non-valved catheters only, Starting on Tue01/01/22 a t 0817, For 1 dose HYDROmorphone (PF) injection 0.4 mg Given 01/01/2022 4:56 AM MACHINE II TRIMMER 0.4 mg (DILAUDID) 0.4 mg, intravenous, Every 2 hour PRN, severe pain or score 7-10 of 10, Starting on Tue12/30/21 at 1711, For 5 doses, May administer if pain is greater than 7 after scheduled and PRN regimen exhausted. If pain remains greater than 7, notify primary service. Given 12/31/2021 11:35 AM MACHINE II TRIMMER 0.4 mg Given 12/31/2021 4:14 AM MACHINE II TRIMMER 0.4 mg ipratropium-albuteroL 0.5-2.5 mg/3 mL nebulizer Given 01/01/2022 3:15 AM MACHINE II TRIMMER 3 mL solution 3 mL (DUONEB) 3 mL, nebulization, 4 times daily PRN, shortness of breath, wheezing, Starting on Tue12/30/21 at 1711 lactated ringers Rate/Dose Change 01/01/2022 1:00 AM MACHINE II TRIMMER 20 mL/hr 20 mL/hr 75 mL/hr, intravenous, Continuous, Starting on Tue12/30/21 at 1715, Until patient has 500cc po intake New Bag 12/31/2021 11:46 PM MACHINE II TRIMMER 75 mL/hr 75 mL/hr Rate/Dose Change 12/31/2021 3:55 AM MACHINE II TRIMMER 20 mL/hr 20 mL/hr lactated ringers Continued from OR 12/30/2021 4:00 PM MACHINE II TRIMMER 75 mL/hr 75 mL/hr 75 mL/hr, intravenous, Continuous, Starting on Tue12/30/21 at 1600, PACU & Post-Op lamoTRIgine tablet 200 mg (LaMICtaL) Given 01/01/2022 8:34 AM MACHINE II TRIMMER 200 mg 200 mg, oral, 2 times daily, First dose on Tue12/30/21 at 2100 Given 12/31/2021 8:56 PM MACHINE II TRIMMER 200 mg Given 12/31/2021 8:16 AM MACHINE II TRIMMER 200 mg methylene blue 0.5 % (5 mg/mL) Given 12/30/2021 2:39 PM MACHINE II TRIMMER 2 mL Left Shoulder injection As needed, [...] 10 mg (ROXICODONE) Given 01/01/2022 2:38 PM MACHINE II TRIMMER 10 mg 10 mg, oral, Every 3 hours PRN, severe pain or score 7-10 of 10, Starting on Tue12/31/21 at 1745 Given 01/01/2022 11:35 AM MACHINE II TRIMMER 10 mg Given 01/01/2022 7:07 AM MACHINE II TRIMMER 10 mg oxyCODONE IR tablet 5 mg (ROXICODONE) 5 mg, oral, Every 3 hours PRN, moderate pain or score 4-6 of 10, Starting on Tue12/31/21 at 1745, If patient is >75 consider changing to 2.5-5mg scale pantoprazole DR tablet 40 mg (PROTONIX) Given 01/01/2022 3:46 PM MACHINE II TRIMMER 40 mg 40 mg, oral, 2 times daily before breakfast and dinner, First dose on Tue12/31/21 at 0700, pantoprazole 40 mg oral twice daily was interchanged for esomeprazole 20 or 40 mg oral twice daily Swallow whole. Do NOT crush, chew, or split tablet. Given 01/01/2022 6:29 AM MACHINE II TRIMMER 40 mg Given 12/31/2021 4:47 PM MACHINE II TRIMMER 40 mg pregabalin capsule 600 mg (LYRICA) Given 01/01/2022 8:34 AM MACHINE II TRIMMER 600 mg 600 mg, oral, 2 times daily, First dose on Tue12/30/21 at 2100 Given 12/31/2021 8:56 PM MACHINE II TRIMMER 600 mg Given 12/31/2021 8:15 AM MACHINE II TRIMMER 600 mg QUEtiapine tablet 50 mg (SEROquel) Given 12/31/2021 8:57 PM MACHINE II TRIMMER 50 mg 50 mg, oral, Daily at bedtime, First dose on Tue12/30/21 at 2100 Given 12/30/2021 9:55 PM MACHINE II TRIMMER 50 mg sennosides-docusate sodium 8.6-50 mg per Given 01/01/2022 8:35 A M MACHINE II TRIMMER 1 tablet tablet 1 tablet (SENOKOT-S) 1 tablet, oral, 2 times daily, First dose on Tue12/30/21 at 2100, Do not give if patient has diarrhea. Given 12/31/2021 8:57 PM MACHINE II TRIMMER 1 tablet Given 12/31/2021 8:16 AM MACHINE II TRIMMER 1 tablet sodium chloride 0.9 % injection [...] injection 3 mL Given 12/31/2021 8:18 AM MACHINE II TRIMMER 3 mL 3 mL, intravenous, Every 12 hours scheduled, First dose on Tue12/30/21 at 2100, PACU & Post-Op, Peripheral Intravenous Catheter and Rapid Infusion Catheter, when no infusion to maintain patency Given 12/30/2021 9:53 PM MACHINE II TRIMMER 3 mL vancomycin powder Given 12/30/2021 2:40 PM MACHINE II TRIMMER 4 g Left Shoulder As needed, Starting on Tue12/30/21 at 1440, Intra-Op zonisamide capsule 300 mg (ZONEGRAN) Given 01/01/2022 8:35 AM MACHINE II TRIMMER 300 mg 300 mg, oral, 2 times daily, First dose on Tue12/30/21 at 2100, Swallow whole. Do NOT crush, chew or open capsule. Given 12/31/2021 8:57 PM MACHINE II TRIMMER 300 mg Given 12/31/2021 8:16 AM MACHINE II TRIMMER 300 mg documented in this encounter Active and Recently Administered Medications Times are shown in MACHINE II TRIMMER. Scheduled Medication Order 12/30/2021 12/31/2021 01/01/2022 acetaminophen [...] 1419 (Given - Provider: Emre Rodriguez APRN, PORTABLE IRRIGATION OPERATOR) 2,000 mg (rounded from 1,747.5 mg [...] 1446 (Given - Provider: Emre Rodriguez APRN, PORTABLE IRRIGATION OPERATOR)1550 (Anesthesia Volume Adjustment - Provider: Emre [...] 2 hour CA N, indigestion, Starting on Tue12/30/21 at 1711, [...] 3 days 1 patch (TRANSDERM S SUPERVISOR CARBON PAPER COATING) (CANCELED) 1202 (Medication Applied - Provider: Manda [...] documented as of this encounter Care Teams Fiber Machine Tender Relationship Specialty Start Date End Date Elsewhere, Pcp PCP - General Family Medicine 12/25/21 documented as of this encounter
--- OUTSIDE RECORDS SUMMARY | 2022-11-08 14:03 | XMS_ITS | Encounter Summary ---
:1965 Author Organization [facility] Address [address] [place] [address] Care Team Providers Name Role Phone Unavailable Primary Care Provider Unavailable Reason for Referral MRI/CAT/PET Scan (Routine) - Authorized Specialty Diagnoses / Procedures Referred By Contact Refer red To Contact Radiology Diagnoses Stroke Cerebrovascular Accident Personal History Occlusion Vertebral Artery With lnfarction (HCC) Robert Diehl M.D. [facility] Procedures MR Neck Angiogram without and with IV Contrast [address] [place] [address] Referral ID Status Reason Start Date Expiration Date Visits V isits Requested Authorized [id number] Authorized 12/10/2021 12/10/2022 1 1 ROUND BUTCHER Outpatient (Routine) - Authorized Specialty Diagnoses / Procedures Referred By Contact Refer red To Contact Diagnoses Aneurysm Cerebral Unruptured (HCC) Robert Diehl M.D. [facility] Procedures PM Device interrogation (clinic) [address] [place] [address] Referral ID Status Reason Start Date Expiration Date Visits V isits Requested Authorized [id number] Authorized 12/10/2021 12/10/2022 1 1 ROUND BUTCHER MRI/CAT/PET Scan (Routine) - Authorized Specialty Diagnoses / Procedures Referred By Contact Refer red To Contact Radiology Diagnoses Aneurysm Cerebral Unruptured (HCC) Robert Diehl M.D. [facility] Procedures MR Brain Angiogram without IV Contrast [address] [place] [address] Referral ID Status Reason Start Date Expiration Date Visits V isits Requested Authorized [id number] Authorized 12/10/2021 12/10/2022 1 1 ROUND BUTCHER Reason for Visit Reason Comments Michel Encounter Details Date Type Department Care Team Description 12/10/2021 Clinical Communication Department of Robert Diehl [facility] [place] [place] [address] [facility] [address] [place] [phone] Social History Tobacco Use Types Packs/Day Years [...] you attend baptism or Patient refused 2021 jewish services? Do [...] 2:58 PM CST Signed and thank you. ROUND BUTCHER documented in this encounter Plan of Treatment Scheduled Orders Name Type Priority Associated Diagnoses Order S chedule MR Brain Angiogram Imaging RAD - Routine Aneurysm Cerebral Exp ected: without IV Contrast (most inpatients Unruptured ([facility]) 05/03/2022, and all Expires: outpatients) 03/10/2023 PM Device Procedures Routine Aneurysm Cerebral Expected: interrogation Unruptured ([facility]) 12/29/2021 , (clinic) Expires: 03/10/2023 MR Neck Angiogram Imaging RAD - Routine Stroke Cerebrovascular Expected: without and with IV (most inpatients Accident Personal 05/03/2022 Contrast and all History (Approximate), outpatients) Occlusion Vertebral Expires: Artery With lnfarction 03/10 ([facility]) documented as of this encounter Visit Diagnoses Diagnosis Stroke Cerebrovascular Accident Personal History - Primary Aneurysm Cerebral Unruptured ([facility]) Occlusion Vertebral Artery With lnfarcti on ([facility]) documented in this encounter Additional Health Concerns Assessment Noted Time PHQ-9 Depression Total Score: 16 02/11/2021 12:00 AM C DT documented as of this encounter
--- OUTSIDE RECORDS SUMMARY | 2022-11-08 14:04 | XMS_ITS | Encounter Summary ---
:1965 Author Organization [facility] Address [address] [place] [address] Care Team Providers Name Role Phone Unavailable Primary Care Provider Unavailable Encounter Details Date Type Department Care Team Description 09/23/2021 Hospital Encounter Department of Alfredo Herrera Total Joint Radiology, Anh Gonzales Arthroplasty Initial Building, in [address] [place] [address] ([facility]) [facility] [phone] [place] [address] [place], [place] (Work) [phone] Social History Tobacco Use Types Packs/Day Years [...]
--- OUTSIDE RECORDS SUMMARY | 2022-11-08 14:04 | XMS_ITS | Encounter Summary ---
:1965 Author Organization [facility] Address [address] [place] [address] Care Team Providers Name Role Phone Unavailable Primary Care Provider Unavailable Reason for Referral Outpatient (Routine) - Closed Specialty Diagnoses / Procedures Referred By Contact Refer red To Contact Diagnoses Painful Total Joint Arthroplasty Initial (HCC) Alfredo Herrera [place] [facility] Procedures US Major Joint Aspiration and or Injection Left O.P.A.-C. [address] [place] [address] Referral ID Status Reason Start Date Expiration Date Visits Requ ested Visits Authorized [id number] Closed 09/07/2021 09/07/2022 1 1 Outpatient (Routine) - Closed Specialty Diagnoses / Procedures Referred By Contact Refer red To Contact Diagnoses Painful Total Joint Arthroplasty Initial (HCC) Alfredo Herrera [place] Procedures US Musculoskeletal Shoulder Left O.P.A.-C. [address] [place] [address] Referral ID Status Reason Start Date Expiration Date Visits Requ ested Visits Authorized [id number] Closed 09/07/2021 09/07/2022 1 1 Reason for Visit Outpatient (Routine) - Closed Specialty Diagnoses / Procedures Referred By Contact Refer red To Contact Diagnoses Painful Total Joint Arthroplasty Initial (HCC) Alfredo Herrera [place] Procedures US Major Joint Aspiration and or Injection Left O.P.A.-C. [address] [place] [phone] Referral ID Status Reason Start Date Expiration Date Visits Requ ested Visits Authorized [id number] Closed 09/07/2021 09/07/2022 1 1 Encounter Details Date Type Department Care Team Description 09/25/2021 Hospital Encounter Department of Alfredo Herrera Painful Total Joint Radiology, Anh Gonzales Arthroplasty Initial Building, in [address] [place] [address] ([facility]) [facility] [phone] [place] [address] [place], [place] (Work) [phone] Social History Tobacco Use [...] you attend muslim or Patient refused 2021 jain services? Do [...] left shoulder joint effusion. Procedure Note Juana uFentes M.D. - 09/25/2021Fo rmatting of this note [...] Differential, Body Fluid (09/25/2021 1:48 PM CDT) [facility] Method Time Signature Fluid Type Left 09/25/2021 DHPM Shoulder 4:50 PM CDT Gross Slightly 09/25/2021 DHPM Appearance bloody 4:50 PM CDT Total 85514 /mcL 09/25/2021 DHPM Nucleated 4:50 PM CDT Cells Comment: ----REFERENCE VALUE---- Synovial: <150 /mcL Peritoneal: <500 /mcL Pleural: <500 /mcL Pericardial: <500 /mcL ----ADDITIONAL INFORMATION---- This test has been modified from the man ufacturer's instructions. Its performance characteri stics were determined by [facility] in a manner co nsistent [...] seen. Reviewed by: Tech 09/25/2021 7:38 PM [facility] CDT Specimen Anatomical Collection Method Collection Time Receive d Time (Source) Location / / Volume Laterality Fluid 09/25/2021 1:48 PM 3:27 CDT PM CDT Alfredo Kamara LAB BODY FLUIDS AND STOOLS O MARY Performing Organization Address City/[facility] Phon e Number [facility] - [address] [place], [place] [address] [facility] [place] [address] [facility] [address] [facility] Acid Fast Smear For Mycobacterium (09/25/2021 1:48 PM CDT) [facility] gist Method Time Signature Acid Fast Smear Negative. 09/26/2021 DTL For Mycobacterium 2:58 PM CDT Specimen Anatomical Collection Method Collection Time Receive d Time (Source) Location / / Volume Laterality Synovial Fluid, 09/25/2021 1:48 PM 2020 3:42 Left Shoulder CDT PM CDT Comment: Specimen Source Site: Fluid Narrative [facility] - [facility] - 09/26/2021 2:58 PM CDT Fungal and Mycobacteria specimens plated for culture, volume inadequate for optimal recovery. Alfredo Kamara LAB MICROBIOLOGY - GENERAL O MARY Performing Organization Address City/[facility] Code Phon e Number [facility] - [address] [place], [place] [address] [facility] [place] [address] Gram Stain (09/25/2021 1:48 PM CDT) [facility] gist Method Time Signature Gram Stain [...] HOSPITAL [facility] - [address] [place], [place] [address] [facility] [place] [address] Laboratories-[facility] [address] (ABNORMAL) Bacterial Culture, Aerobic + Susc (09/25/2021 1:48 PM CDT) Component Value Ref Test Analysis Performed At Patholo gist Range Method Time Signature Bacterial STAPHYLOCOCCUS EPIDERMIDIS 09/30/2021 DT L Culture, One [place] 2:35 PM CDT Aerobic + (A) Susc Comment: Semi-Urgent Result. Semi-Urgent This is a semi-urgent result [facility] - ([facility]) [facility] Specimen Anatomical Collection Method Collection Time Receive d Time (Source) Location / / Volume Laterality Fluid (Synovial 09/25/2021 1:48 PM 2020 3:42 Fluid, Left CDT PM CDT Shoulder) Comment: Specimen Source Site: Fluid Narrative [facility] - [facility] - 09/30/2021 2:35 PM CDT [...] MARY Performing Organization Address [facility] Phon e Number [facility] - 200 [place] [address] [address] Bacterial Culture, Anaerobic + Susc (09/25/2021 1:48 PM CDT) [facility] Method Time Signature Bacterial No growth 10/09/2021 DTL Culture, after 14 7:41 AM MANAGER VIDEO Anaerobic + days of Susc incubation. Specimen Anatomical Collection Method Collection Time Receive d Time (Source) Location / / Volume Laterality Fluid (Synovial 09/25/2021 1:48 PM 2020 3:42 Fluid, Left CDT PM CDT Shoulder) Comment: Specimen Source Site: Fluid Narrative [facility] - 10/09/2021 7:41 AM MANAGER VIDEO Fungal and Mycobacteria specimens plated for culture, volume inadequate for optimal recovery. Alfredo Kamara LAB MICROBIOLOGY - GENERAL O MARY Performing Organization Address [facility] Phon e Number [facility] - [address] (ABNORMAL) Broad Range Bacteria PCR+Sequencing (09/25/2021 1:48 PM CDT) Component Value Ref Test Analysis Performed At [facility] Range Method Time Signature Broad Range This test was developed and its performance characteri stics 10/06/2021 DTL Bacteria determined by [facility] in a manner consistent with 1:24 PM MANAGER VIDEO PCR+Sequencin CLIA requirements. This test has not been cleared or g approved by the U.S. Food and Drug Administration. (A) Broad Range STAPHYLOCOCCUS EPIDERMIDIS 10/06/2021 DTL Bacteria DNA detected 1:24 PM MANAGER VIDEO PCR+Sequencin (A) g Comment: Semi-Urgent Result. Semi-Urgent This is a semi-urgent result [facility] - () [facility] Specimen Anatomical Collection Method Collection Time Receive d Time (Source) Location / / Volume Laterality Fluid (Synovial 09/25/2021 1:48 PM 2020 3:42 Fluid, Left CDT PM CDT Shoulder) Comment: Specimen Source Site: Fluid Narrative [facility] - 10/06/2021 1:24 PM MANAGER VIDEO Fungal and Mycobacteria specimens plated for culture, volume inadequate for optimal recovery. Alfredo Kamara LAB MICROBIOLOGY - GENERAL O RDERABLES Performing Organization Address City/[facility]/ZIP [facility] Phon e Number [facility] - [address] [place] [address] Crystal Identification, Synovial Fluid (09/25/2021 1:48 PM CDT) [facility] Time Signature Crystal ID, None seen None seen 09/25/2021 [facility] Synovial Fl 4:56 PM CDT Reviewed by: Tech 09/25/2021 [facility] 4:56 PM CDT Specimen Anatomical Collection Method Collection Time Receive d Time (Source) Location / / Volume Laterality Fluid (Synovial 09/25/2021 1:48 PM 2020 3:27 Fluid, Left CDT PM CDT Shoulder) Alfredo Kamara LAB BODY FLUIDS AND STOOLS O RDERABLES Performing Organization Address City/[facility] Code Phon e Number [facility] - [address] [place] [address] Fungal Culture, Routine (09/25/2021 1:48 PM CDT) [facility] Method Time Signature Fungal No growth 10/20/2021 DT Culture, after 24 1:01 AM MANAGER VIDEO Routine days of incubation. Specimen Anatomical Collection Method Collection Time Receive d Time (Source) Location / / Volume Laterality Fluid (Synovial 09/25/2021 1:48 PM 2020 3:42 Fluid, Left CDT PM CDT Shoulder) Comment: Specimen Source Site: Fluid Narrative [facility] - 10/20/2021 1:01 AM MANAGER VIDEO Fungal and Mycobacteria specimens plated for culture, volume inadequate for optimal recovery. Alfredo Kamara LAB MICROBIOLOGY - GENERAL O MARY Performing Organization Address [facility] Phon e Number [facility] - [address] Mycobacterial Culture (09/25/2021 1:48 PM CDT) [facility] gist Method Time Signature Mycobacterial No growth 11/07/2021 DTL Culture after 42 1:03 AM MANAGER VIDEO days of incubation . Specimen Anatomical Collection Method Collection Time Receive d Time (Source) Location / / Volume Laterality Fluid (Synovial 09/25/2021 1:48 PM 2020 3:42 Fluid, Left CDT PM CDT Shoulder) Comment: Specimen Source Site: Fluid Narrative [facility] - 11/07/2021 1:03 AM MANAGER VIDEO Fungal and Mycobacteria specimens plated for culture, volume inadequate for optimal recovery. Alfredo Kamara LAB MICROBIOLOGY - GENERAL O MARY Performing Organization Address [facility] Phon e Number [facility] - [address] documented in this encounter Visit Diagnoses [...]
--- OUTSIDE RECORDS SUMMARY | 2022-11-08 14:04 | XMS_ITS | Encounter Summary ---
:1965 Author Organization [facility] Address [address] [place] [address] Care Team Providers Name Role Phone Unavailable Primary Care Provider Unavailable Encounter Details Date Type Department Care Team Description 10/13/2021 Clinical Communication Preoperative [facility] in [facility] [employer] [place], [place] 200 [facility] [address] [place] [address] [phone] Social History Tobacco Use Types Packs/Day Years [...] Umu Gan RBrittonR.T. 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 TIA ??? PFO ??? Hx of Arterial Thrombosis ??? 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
--- OUTSIDE RECORDS SUMMARY | 2022-11-08 14:04 | XMS_ITS | Encounter Summary ---
:[address] [facility] Address [address] [place] [address] Care Team Providers Name Role Phone Unavailable Primary Care Provider Unavailable Reason for Visit Outpatient (Routine) - Closed Specialty Diagnoses / Procedures Referred By Contact Refer red To Contact Neurology Robert Diehl [facility] [address] [place] [phone] Referral ID Status Reason Start Date Expiration Date Visits Requ ested Visits Authorized [id number] Closed 09/15/2020 09/15/2021 1 1 Encounter Details Date Type Department Care Team Description 11/18/2021 Virtual Visit Department of Robert Diehl Stroke Cere brovascular Neurology jimmy Celaya M.D. Accident Personal [place], [place] [address] [place] [address] History (Primary Dx) [address] [place] [phone] Social History Tobacco Use Types Packs/Day Years [...] you attend taoism or Patient refused 2021 yarsani services? Do you belong to any clubs or No 05/17/2022 organizations such as taoism groups, unions, fraCreditera or athletic groups, or school groups? How [...] 19 pandemic patient not seen in a twaz-ln-swwk manner. This is a 56-year-old woman with [...] by: Robert Diehl M.D. 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 Stroke Cerebrovascular Accident Personal History SALES AND SERVICE MANAGER documented in this encounter Plan of Treatment Not on filedocumented as of this encounter Visit Diagnoses Diagnosis Stroke Cerebrovascular Accident Personal History - Primary documented in this encounter Additional Health Concerns Assessment Noted Time PHQ-9 Depression Total Score: 16 02/11/2021 12:00 AM C DT documented as of this encounter
--- OUTSIDE RECORDS SUMMARY | 2022-11-08 14:04 | XMS_ITS | Encounter Summary ---
:1965 Author Organization [facility] Address [address] [place] [address] Care Team Providers Name Role Phone Unavailable Primary Care Provider Unavailable Encounter Details Date Type Department Care Team Description 09/23/2021 Hospital Encounter Department of Alfredo Herrera Total Joint Laboratory Medicine A, O.PBrittonABritton-CBritton Arthroplasty Initial and Pathology, [address] [place] [address] ([facility]) [facility] in [place] [phone] [place] [phone] 200 [facility] (Work) [place], [place] [phone] (Fax) [phone] Social History Tobacco Use Types Packs/Day Years [...] you attend methodist or Patient refused 2021 zoroastrian services? Do [...] (ABNORMAL) Sedimentation Rate (09/23/2021 9:07 AM CDT) [facility] Method Time Signature Sedimentation 31 (H) 2 - 22 09/23/2021 DTL Rate, B mm/h 10:46 AM CDT Specimen Anatomical Collection Method Collection Time Receive d Time (Source) Location / / Volume Laterality Blood (Blood, 09/23/2021 9:07 AM 09/23/20 9:30 Venous) CDT AM CDT Alfredo Kamara LAB BLOOD ADD-ON Performing Organization Address City/[facility] Phon e Number [facility] - 200 [place], [place] [address] [place] [address] [place] [address] Laboratories-[address] CRP (C-Reactive Protein) (09/23/2021 9:07 AM CDT) P athologist Signature C-Reactive <3.0 <=8.0 mg/L 09/23/2021 DTL Protein (CRP), 10:30 AM CDT S Specimen Anatomical Collection Method Collection Time Receive d Time (Source) Location / / Volume Laterality Blood (Blood, 09/23/2021 9:07 AM 09/23/20 9:57 Venous) CDT AM CDT Alfredo Kamara LAB BLOOD ADD-ON Performing Organization Address City/[facility] Phon e Number [facility] - 200 [place], [place] [address] [place] [address] Laboratories-[address] (ABNORMAL) CBC with Differential, Blood (09/23/2021 9:07 AM CDT) [facility] Method Time Signature Hemoglobin 10.1 (L) [...] [facility] - [address] [place], [place] [address] [place] [address] Laboratories-[facility] [address] documented in this encounter Visit Diagnoses Diagnosis Painful Total Joint Arthroplasty Initial (HCC) documented in this encounter Additional Health Concerns Assessment Noted Time PHQ-9 Depression Total Score: 16 02/11/2021 12:00 AM C DT documented as of this encounter
--- OUTSIDE RECORDS SUMMARY | 2022-11-08 14:04 | XMS_ITS | Encounter Summary ---
:1965 Author Organization [facility] Address [address] [place] [address] Care Team Providers Name Role Phone Unavailable Primary Care Provider Unavailable Reason for Visit Reason Comments Nicotine Dependence Encounter Details Date Type Department Care Team Description 07/30/2021 Clinical Communication Department of [facility], Carolyn Mccarthy cotine Dependence Nicotine M.S., Dependence, C.T.T.S., [facility] in [place], [address] [place] [address] [place] [phone] [place], [place] [phone] (Work) [phone] Social History Tobacco Use Types Packs/Day Years [...] you attend christianity or Patient refused 2021 jehovah's witness services? [...]
--- OUTSIDE RECORDS SUMMARY | 2022-11-08 14:04 | XMS_ITS | Encounter Summary ---
:1965 Author Organization [facility] Address [address] [place] [address] Care Team Providers Name Role Phone Unavailable Primary Care Provider Unavailable Reason for Referral MRI/CAT/PET Scan (Routine) - Closed Specialty Diagnoses / Procedures Referred By Contact Refer red To Contact Radiology Diagnoses Painful Total Joint Arthroplasty Initial ([facility]) Alfredo Herrera [facility] er [facility] Procedures CT Shoulder Left without IV Contrast O.P.A.-C. [address] [place] [address] [phone] Referral ID Status Reason Start Date Expiration Date Visits Requ ested Visits Authorized [id number] Closed 09/07/2021 09/07/2022 1 1 Reason for Visit MRI/CAT/PET Scan (Routine) - Closed Specialty Diagnoses / Procedures Referred By Contact Refer red To Contact Radiology Diagnoses Painful Total Joint Arthroplasty Initial ([facility]) Alfredo Herrera [facility] [facility] Procedures CT Shoulder Left without IV Contrast O.P.A.-C. [address] [place] [address] [phone] Referral ID Status Reason Start Date Expiration Date Visits Requ ested Visits Authorized [id number] Closed 09/07/2021 09/07/2022 1 1 Encounter Details Date Type Department Care Team Description 09/25/2021 Hospital Encounter Department of Alfredo Herrera Painful Total Joint Radiology, Roxana HillCBritton Arthroplasty Initial Building, in [address] [place] [address] ([facility]) [facility] [phone] 200 [facility] [phone] [place], [place] (Work) [phone] Social History Tobacco Use Types Packs/Day Years [...] you attend baptism or Patient refused 2021 presybeterian services? Do [...]
--- OUTSIDE RECORDS SUMMARY | 2022-11-08 14:04 | XMS_ITS | Encounter Summary ---
:1965 Author Organization [facility] Address [address] [place] [address] Care Team Providers Name Role Phone Unavailable Primary Care Provider Unavailable Reason for Visit Reason Comments Pain Appointment Request (Routine) - Closed Specialty Diagnoses / Procedures Referred By Contact Refer red To Contact Orthopedic Surgery Diagnoses Arthroplasty Total Shoulder Replacement Status Post Left David Cohn M.D. [address] [place] [address] Referral ID Status Reason Start Date Expiration Date Visits Requ ested Visits Authorized [id number] Closed 09/04/2021 09/04/2022 1 1 Encounter Details Date Type Department Care Team Description 09/23/2021 Comprehensive Visit Department of Cyrus Polk Pain Shoulder Left Orthopedic Surgery Lilian Souza (Primary Dx) in [place], [address] [place] [address] [place] [phone] [place], [place] [phone] (Work) [phone] Social History Tobacco Use Types Packs/Day Years [...] attend jehovah's witness or Patient refused 2021 baptism services? Do you belong to any clubs or No 05/17/2022 organizations such as jehovah's witness groups, unions, fraPrecipio or athletic groups, or school groups? How [...]
--- OUTSIDE RECORDS SUMMARY | 2022-11-08 14:04 | XMS_ITS | Encounter Summary ---
:1965 Author Organization [facility] Address [address] [place] [address] Care Team Providers Name Role Phone Unavailable Primary Care Provider Unavailable Reason for Visit Reason Comments Michel Encounter Details Date Type Department Care Team Description 11/25/2021 Clinical Communication Department of Chani Benjamin Neurologic Surgery in Lilian Jang, [place], [place] Ph.D. [address] [place] [address] 200 [place] [address] [phone] Social History Tobacco Use Types Packs/Day Years [...] you attend restoration or Patient refused 2021 samaritan services? Do [...] for your help. Boris Neurosurgery Appointment Office [phone] Please respond to the RST YEYO SCHEDULING Pool Thank You MACY TECHNOLOGIST documented in this encounter Plan of Treatment Not on filedocumented as of this encounter Visit Diagnoses Not on filedocumented in this encounter Additional Health Concerns Assessment Noted Time PHQ-9 Depression Total Score: 16 02/11/2021 12:00 AM C DT documented as of this encounter
--- OUTSIDE RECORDS SUMMARY | 2022-11-08 14:04 | XMS_ITS | Encounter Summary ---
:1965 Author Organization [facility] Address [address] [place] [address] Care Team Providers Name Role Phone Unavailable Primary Care Provider Unavailable Reason for Visit MRI/CAT/PET Scan (Routine) - Canceled Specialty Diagnoses / Procedures Referred By Contact Refer red To Contact Radiology Diagnoses Aneurysm Cerebral Unruptured (HCC) Robert Diehl M.D. [facility] Procedures MR Brain Angiogram without IV Contrast [address] [place] [address] Referral ID Status Reason Start Date Expiration Date Visits V isits Requested Authorized [id number] Canceled 09/15/2020 09/15/2021 1 1 Encounter Details Date Type Department Care Team Description 09/18/2021 Hospital Encounter Department of Robert Diehl ed (Patient: Radiology, Severiano Celaya M.D. Request) [facility], [address] [place], [place] [address] [place] [phone] [place], [place] [phone] (Work) [phone] Social History Tobacco Use Types Packs/Day Years [...] you attend temple or Patient refused 2021 mandaen services? Do you belong to any clubs or No 05/17/2022 organizations such as temple groups, unions, fraSorbent Green or athletic groups, or school groups? How [...]
--- OUTSIDE RECORDS SUMMARY | 2022-11-08 14:04 | XMS_ITS | Encounter Summary ---
:1965 Author Organization [facility] Address [address] [place] [address] Care Team Providers Name Role Phone Unavailable Primary Care Provider Unavailable Reason for Visit Reason Comments Nicotine Dependence Encounter Details Date Type Department Care Team Description 07/16/2021 Clinical Communication Department of [facility], Carolyn Mccarthy cotine Dependence Nicotine M.S., Dependence, C.T.T.S., [facility] in [place], [address] [place] [address] [place] [address] [place], [place] [phone] (Work) [phone] Social History Tobacco Use Types Packs/Day Years [...] you attend synagogue or Patient refused 2021 christianity services? Do [...]
--- OUTSIDE RECORDS SUMMARY | 2022-11-08 14:04 | XMS_ITS | Encounter Summary ---
:1965 Author Organization [facility] Address 200 [place] [address] Care Team Providers Name Role Phone Unavailable Primary Care Provider Unavailable Reason for Referral Outpatient (Routine) - Closed Specialty Diagnoses / Procedures Referred By Contact Refer red To Contact Anesthesiology Diagnoses Preoperative Exam Painful Total Joint Arthroplasty Initial ([facility]) Alfredo Herrera [place] [facility] [place].Fernando-CBritton 200 [place] [address] Referral ID Status Reason Start Date Expiration Date Visits Requ ested Visits Authorized [id number] Closed 10/13/2021 10/13/2022 1 1 AL HELPER Outpatient (Routine) - Closed Specialty Diagnoses / Procedures Referred By Contact Refer red To Contact Orthopedic Surgery Diagnoses Preoperative Exam Painful Total Joint Arthroplasty Initial ([facility]) Alfredo Herrera [place] Marg[place] Diana.Fernando-CBritton 200 [place] [address] Referral ID Status Reason Start Date Expiration Date Visits Requ ested Visits Authorized [id number] Closed 10/13/2021 10/13/2022 1 1 AL HELPER Reason for Visit Reason Comments pre op orders L shldr Encounter Details Date Type Department Care Team Description 10/12/2021 Clinical Communication Department of Jam pre op orders Gisell Orthopedic Surgery Lilian Alex) in [place], [facility] [address] [place], [place] 200 [facility] [address] [place], [place] [phone] (Work) [phone] Social History Tobacco Use Types Packs/Day Years [...] and see me Surgery date: December 30 AL HELPER documented in this encounter Plan of [...] (ABNORMAL) Basic Metabolic Panel (12/29/2021 11:34 AM SIGNAL HELPER) P athologist Signature Potassium, S 4.7 3.6 - 5.2 12/29/2021 DTL mmol/L 12:38 PM SIGNAL HELPER Sodium, S 143 135 - 145 12/29/2021 DTL mmol/L 12:38 PM SIGNAL HELPER Chloride, S 108 (H) 98 - 107 12/29/2021 DTL mmol/L 12:38 PM SIGNAL HELPER Bicarbonate, S 24 22 - 29 12/29/2021 DTL mmol/L 12:38 PM SIGNAL HELPER Anion Gap 11 7 - 15 12/29/2021 DTL 12:38 PM SIGNAL HELPER BUN (Blood Urea 15 6 - 21 12/29/2021 DTL Nitrogen), S mg/dL 12:38 PM SIGNAL HELPER Creatinine 0.83 0.59 - 12/29/2021 DTL 1.04 mg/dL 12:38 PM SIGNAL HELPER eGFR-Non 78 >=60 12/29/2021 DTL Black/ mL/min/BSA 12:38 PM SIGNAL HELPER Cymro Comment: ----ADDITIONAL INFORMATION---- Estimated GFR calculated using the 2009 CKD_EPI creatinine equation. eGFR-Black/ 90 >=60 mL/min/BSA 02/01/ 2022 12:38 PM SIGNAL HELPER DTL Comment: ----ADDITIONAL INFORMATION---- Estimated GFR calculated using the 2009 CKD_EPI creatinine equation. Calcium, Total, S 9.1 8.6 - 10.0 mg/dL 12/29/2021 12:3 8 PM SIGNAL HELPER DTL Glucose, S 90 70 - 140 mg/dL 12/29/2021 12:38 PM SIGNAL HELPER DTL Specimen Anatomical Collection Method Collection Time Receive d Time (Source) Location / / Volume Laterality Blood (Blood, 12/29/2021 11:34 12/29/2021 Venous) AM SIGNAL HELPER 12:13 PM SIGNAL HELPER Alfredo Kamara LAB BLOOD ADD-ON Performing Organization Address City/[facility] Phon e Number [facility] - [address] [place] [address] Laboratories[address] Type and Screen (with reflex Antibody ID) (12/29/2021 11:34 AM SIGNAL HELPER) [facility] Point [place] Range Method Time Signature ABORh A Neg Not applicable 12/29/2021 ETRM 12:59 PM SIGNAL HELPER Antibody CANCELED 12/29/2021 ETRM Screen 12:59 PM SIGNAL HELPER Comment: Result canceled by the ancillar y. Type & Screen Expiration 02/26/2022 23:59 12/29/19 22 12:59 PM SIGNAL HELPER ETRM Testing Location Ara DEFAULT 12/29/2021 11:58 AM SIGNAL HELPER ETRM Specimen Anatomical Collection Method Collection Time Receive d Time (Source) Location / / Volume Laterality Blood (Blood, 12/29/2021 11:34 12/29/2021 Venous) AM SIGNAL HELPER 11:58 AM SIGNAL HELPER Alfredo Kamara LAB BLOOD BANK TEST ORDERABL ES Performing Organization Address City/[facility] Phon e Number [facility] - [address]TR[address] (ABNORMAL) CBC with Differential, Blood (12/29/2021 11:34 AM SIGNAL HELPER) [facility] [place] Method Time Signature Hemoglobin 11.2 (L) 11.6 - 12/29/2021 DTL 15.0 g/dL 12:02 PM SIGNAL HELPER Hematocrit 34.1 (L) 35.5 - 12/29/2021 DTL 44.9 % 12:02 PM SIGNAL HELPER Erythrocytes 4.04 3.92 - 12/29/2021 DTL 5.13 12:02 PM SIGNAL HELPER x10(12)/L MCV 84.4 78.2 - 12/29/2021 DTL 97.9 fL 12:02 PM SIGNAL HELPER RBC Distrib Width 20.2 (H) 12.2 - 12/29/2021 DTL 16.1 % 12:02 PM SIGNAL HELPER Platelet Count 324 157 - 371 12/29/2021 DTL x10(9)/L 12:02 PM SIGNAL HELPER Leukocytes 5.1 3.4 - 9.6 12/29/2021 DTL x10(9)/L 12:02 PM SIGNAL HELPER Neutrophils 3.08 1.56 - 12/29/2021 DTL 6.45 12:02 PM SIGNAL HELPER x10(9)/L Lymphocytes 1.39 0.95 - 12/29/2021 DTL 3.07 12:02 PM SIGNAL HELPER x10(9)/L Monocytes 0.43 0.26 - 12/29/2021 DTL 0.81 12:02 PM SIGNAL HELPER x10(9)/L Eosinophils 0.17 0.03 - 12/29/2021 DTL 0.48 12:02 PM SIGNAL HELPER x10(9)/L Basophils 0.05 0.01 - 12/29/2021 DTL 0.08 12:02 PM SIGNAL HELPER x10(9)/L Specimen Anatomical Collection Method Collection Time Receive d Time (Source) Location / / Volume Laterality Blood (Blood, 12/29/2021 11:34 12/29/2021 Venous) AM SIGNAL HELPER 11:54 AM SIGNAL HELPER Alfredo Kamara LAB BLOOD ADD-ON Performing Organization Address City/State/ZIP Code Phon e Number [facility] - [address] [place], [place] [address] [facility] [place] [place] [address] [facility] [address] SARS Coronavirus 2, Molecular Detection, PCR, Varies Asymptomatic (12/29/2021 11:11 AM SIGNAL HELPER) [facility] Method Time Signature COVID-19, Swab, 12/29/2021 DTL PCR, Source Nasopharynx 4:19 PM SIGNAL HELPER COVID-19, Undetected Undetected 12/29/2021 DTL PCR, Result 4:19 PM SIGNAL HELPER Comment: SARS-CoV-2 RNA absent. This result does not rule out COVID-19 in the patient, as the sensitivity of the test depends o n the timing of the specimen collection and quality of the specimen. Result should be correlated with patient's history and clinical presentat ion. ----ADDITIONAL INFORMATION---- This RT-PCR test using the [employer] SARS-Co V-2 Assay ( ralali) performed on the [employer] Two Module System has received Emergency Use Authorization (EUA) by the U.S. Food and Drug Administration, and is modified from the management professionals's instructions with a bridging study. Performance characteristics were verifie d by [facility] in a manner consistent with CLIA requirements. Visit the CDC website: https://www.cdc.g ov/coronavirus/ for the most recent guidelines on [facility] virus testing. Fact Sheet for Healthcare Providers: https://www.fda.gov/media/831855/downloa d Fact Sheet for Patients: https://www.fda.gov/media/218226/downloa d Specimen Anatomical Collection Method Collection Time Receive d Time (Source) Location / / Volume Laterality Varies 12/29/2021 11:11 12/29/2021 (Nasopharynx) AM SIGNAL HELPER 12:03 PM SIGNAL HELPER Alfredo Kamara LAB MICROBIOLOGY - GENERAL O RDERABLES Performing Organization Address City/State/ZIP Code Phon e Number [facility] - [address] [place], [place] [address] [facility] [place] [place] [address] [facility] [address] DX Shoulder Left 2+ Views (12/29/2021 10:30 AM SIGNAL HELPER) Anatomical Region Laterality Modality Upper Extremity, Shoulder, Musculoskeletal RST LOS, Left Digital Radiography Musculoskeletal ARZ LOS, Muskuloskeletal FLA LOS Specimen (Source) Anatomical Collection Method Collection Time Re ceived Time Location / / Volume Laterality 12/29/2021 10:53 AM SIGNAL HELPER Impressions 12/29/2021 10:57 AM SIGNAL HELPER Demineralization. Left shoulder arthroplasty revision to a reverse TSA. Developing lucency about the glenoi d component screws when compared back to 11/13/20, compatible with loosening. Pre sumed distal clavicle resection. Incompletely imaged instrumented spinal fusion from the upper cervical spine to the upper thoracic spine. Spinal cord st imulator. At least one old healed left posterior rib fracture. Narrative 12/29/2021 10:57 AM SIGNAL HELPER EXAM: ??DX SHOULDER LEFT 2+ VIEWS Procedure [...]
--- OUTSIDE RECORDS SUMMARY | 2022-11-08 14:04 | XMS_ITS | Encounter Summary ---
:1965 Author Organization [facility] Address [address] [place] [address] Care Team Providers Name Role Phone Unavailable Primary Care Provider Unavailable Reason for Visit Reason Comments Communication results Encounter Details Date Type Department Care Team Description 10/05/2021 Clinical Communication Department of Rossy Polk Orthopedic Surgery Cyrus Souza M.D. (results) in [address] [place] [address] [phone] Social History Tobacco Use Types Packs/Day Years [...] you attend moravian or Patient refused 2021 quaker services? Do [...] Cyrus Polk M.D. CT CT Job ID: [id number] RATORY MONITOR documented in this encounter Miscellaneous Notes Telephone Encounter - Sosa Laughlin - 10/05/2021 3:17 PM CST Please list patient for 12/30/21. Thank you RATORY MONITOR Telephone Encounter - Cyrus Polk M.D. - 10/05/2021 11:37 AM CST Dx: left infected shoulder arthroplasty Procedure: left resection shoulder arthroplasty UE82, NESHA, and see me Surgery date: December 30 Thank you RATORY MONITOR Telephone Encounter - Radha Suh - 10/05/2021 11:18 AM CST Ms. Mosquera calls for results of labs, CT and aspiration results ( She is disappointment no one has reached out to her and that she had to call for these) Please call her with results to date RATORY MONITOR documented in this encounter Plan of Treatment Not on filedocumented as of this encounter Visit Diagnoses Not on filedocumented in this encounter Additional Health Concerns Assessment Noted Time PHQ-9 Depression Total Score: 16 02/11/2021 12:00 AM C DT documented as of this encounter
--- OUTSIDE RECORDS SUMMARY | 2022-11-08 14:04 | XMS_ITS | Encounter Summary ---
:1965 Author Organization [facility] Address [address] [place] [address] Care Team Providers Name Role Phone Unavailable Primary Care Provider Unavailable Reason for Visit Reason Comments Nicotine Dependence Encounter Details Date Type Department Care Team Description 07/24/2021 Clinical Communication Department of [facility], Carolyn Mccarthy cotine Dependence Nicotine M.S., Dependence, C.T.T.S., [facility] in [place], [address] [place] [address] [place] [address] [place], [place] [phone] (Work) [phone] Social History Tobacco Use Types Packs/Day Years [...] you attend anabaptist or Patient refused 2021 nondenominational services? Do [...]
--- OUTSIDE RECORDS SUMMARY | 2022-11-08 14:04 | XMS_ITS | Encounter Summary ---
:1965 Author Organization [facility] Address 200 [place] [address] Care Team Providers Name Role Phone Unavailable Primary Care Provider Unavailable Reason for Referral Outpatient (Routine) - Closed Specialty Diagnoses / Procedures Referred By Contact Refer red To Contact Diagnoses Painful Total Joint Arthroplasty Initial (HCC) Alfredo Herrera [place] Procedures US Major Joint Aspiration and or Injection Left O.P.A.-C. 200 [place] [address] Referral ID Status Reason Start Date Expiration Date Visits Requ ested Visits Authorized [id number] Closed 09/07/2021 09/07/2022 1 1 Outpatient (Routine) - Closed Specialty Diagnoses / Procedures Referred By Contact Refer red To Contact Diagnoses Painful Total Joint Arthroplasty Initial (HCC) Alfredo Herrera [place] Procedures US Musculoskeletal Shoulder Left O.P.A.-C. 200 [place] [address] Referral ID Status Reason Start Date Expiration Date Visits Requ ested Visits Authorized [id number] Closed 09/07/2021 09/07/2022 1 1 MRI/CAT/PET Scan (Routine) - Closed Specialty Diagnoses / Procedures Referred By Contact Refer red To Contact Radiology Diagnoses Painful Total Joint Arthroplasty Initial (HCC) Alfredo Herrera [place] Procedures CT Shoulder Left without IV Contrast O.Kevin. [address] [place] [address] Referral ID Status Reason Start Date Expiration Date Visits Requ ested Visits Authorized [id number] Closed 09/07/2021 09/07/2022 1 1 Reason for Visit Reason Comments Pre-visit Testing Orders L shldr - prev. TSA Encounter Details Date Type Department Care Team Description 09/07/2021 Clinical Communication Department of Jam, Pre- visit Testing Orthopedic Surgery Cyrus Souza M.D. Orders (L shldr - in [place], [address] [facility] prev. TSA) [place], [place] [address] [facility] [address] [place], [place] [phone] (Work) [phone] Social History Tobacco Use Types Packs/Day Years [...] you attend gnosticism or Patient refused 2021 sikh services? Do [...] PROCEDURES Mycobacterial Culture (09/25/2021 1:48 PM CDT) [employer] Method Time Signature Mycobacterial No growth 11/07/2021 DTL Culture after 42 1:03 AM LANDSCAPE LABORER days of incubation . Specimen Anatomical Collection Method Collection Time Receive d Time (Source) Location / / Volume Laterality Fluid (Synovial 09/25/2021 1:48 PM 2020 3:42 Fluid, Left CDT PM CDT Shoulder) Comment: Specimen Source Site: Fluid Narrative [facility] - 11/07/2021 1:03 AM LANDSCAPE LABORER Fungal and Mycobacteria specimens plated for culture, volume inadequate for optimal recovery. Alfredo Kamara LAB MICROBIOLOGY - GENERAL O RDERABLES Performing Organization Address City/State/ZIP Code Phon e Number [facility] - [address] [place], [place] [address] [facility] [place] [address] [facility] [address] [facility] Fungal Culture, Routine (09/25/2021 1:48 PM CDT) [employer] Method Time Signature Fungal No growth 10/20/2021 DTL Culture, after 24 1:01 AM LANDSCAPE LABORER Routine days of incubation. Specimen Anatomical Collection Method Collection Time Receive d Time (Source) Location / / Volume Laterality Fluid (Synovial 09/25/2021 1:48 PM 2020 3:42 Fluid, Left CDT PM CDT Shoulder) Comment: Specimen Source Site: Fluid Narrative [facility] - 10/20/2021 1:01 AM LANDSCAPE LABORER Fungal and Mycobacteria specimens plated for culture, volume inadequate for optimal recovery. Alfredo Kamara LAB MICROBIOLOGY - GENERAL O RDERABLES Performing Organization Address [facility] Phon e Number [facility] - [address] [place] [address] [facility] [place] [address] Crystal Identification, Synovial Fluid (09/25/2021 1:48 PM CDT) [facility] Signature Crystal ID, None seen [...] AND STOOLS O RDERABLES Performing Organization Address City/[facility] Phon e Number [facility] - [address] [place] [address] [place] [address] (ABNORMAL) Broad Range Bacteria PCR+Sequencing (09/25/2021 1:48 PM CDT) Component Value Ref Test Analysis Performed At [facility] gist Range Method Time Signature Broad Range This test was developed and its performance characteri stics 10/06/2021 DTL Bacteria determined by [facility] in a manner consistent with 1:24 PM LANDSCAPE LABORER PCR+Sequencin CLIA requirements. This test has not been cleared or g approved by the U.S. Food and Drug Administration. (A) Broad Range STAPHYLOCOCCUS EPIDERMIDIS 10/06/2021 DTL Bacteria DNA detected 1:24 PM LANDSCAPE LABORER PCR+Sequencin (A) g Comment: Semi-Urgent Result. Semi-Urgent This is a semi-urgent result [facility] - () [facility] Specimen Anatomical Collection Method Collection Time Receive d Time (Source) Location / / Volume Laterality Fluid (Synovial 09/25/2021 1:48 PM 2020 3:42 Fluid, Left CDT PM CDT Shoulder) Comment: Specimen Source Site: Fluid Narrative [facility] - 10/06/2021 1:24 PM LANDSCAPE LABORER Fungal and Mycobacteria specimens plated for culture, volume inadequate for optimal recovery. Alfredo Kamara LAB MICROBIOLOGY - GENERAL O MARY Performing Organization Address [facility] Phon e Number [facility] - [address] Bacterial Culture, Anaerobic + Susc (09/25/2021 1:48 PM CDT) [employer] Method Time Signature Bacterial No growth 10/09/2021 DTL Culture, after 14 7:41 AM LANDSCAPE LABORER Anaerobic + days of Susc incubation. Specimen Anatomical Collection Method Collection Time Receive d Time (Source) Location / / Volume Laterality Fluid (Synovial 09/25/2021 1:48 PM 2020 3:42 Fluid, Left CDT PM CDT Shoulder) Comment: Specimen Source Site: Fluid Narrative [facility] - 10/09/2021 7:41 AM LANDSCAPE LABORER Fungal and Mycobacteria specimens plated for culture, volume inadequate for optimal recovery. Alfrdeo Kamara LAB MICROBIOLOGY - GENERAL O MARY Performing Organization Address City/[facility]/ZIP [facility] Phon e Number [facility] - [address] (ABNORMAL) Bacterial Culture, Aerobic + Susc (09/25/2021 1:48 PM CDT) Component Value Ref Test Analysis Performed At [facility] [facility] Range Method Time Signature Bacterial STAPHYLOCOCCUS EPIDERMIDIS 09/30/2021 DT L Culture, [facility] [place] 2:35 PM CDT Aerobic + (A) Susc Comment: Semi-Urgent Result. Semi-Urgent This is a semi-urgent result [facility] - () [facility] Specimen Anatomical Collection Method Collection Time Receive d Time (Source) Location / / Volume Laterality Fluid (Synovial 09/25/2021 1:48 PM 2020 3:42 Fluid, Left CDT PM CDT Shoulder) Comment: Specimen Source Site: Fluid Narrative [facility] - [facility] - 09/30/2021 2:35 PM CDT Fungal [...] City/State/ZIP Code Phon e Number [facility] - [address] [place], [place] [address] [facility] [place] [address] [facility] [address] Gram Stain (09/25/2021 1:48 PM CDT) [facility] Method Time Signature Gram Stain No organisms [...] City/State/ZIP Code Phon e Number [facility] - [address] [place], [place] [address] [facility] [place] [address] [facility] [address] [...] (ABNORMAL) Sedimentation Rate (09/23/2021 9:07 AM CDT) [facility] gist Method Time Signature Sedimentation 31 (H) 2 - 22 09/23/2021 DTL Rate, B mm/h 10:46 AM CDT Specimen Anatomical Collection Method Collection Time Receive d Time (Source) Location / / Volume Laterality Blood (Blood, 09/23/2021 9:07 AM 09/23/20 21 9:30 Venous) CDT AM CDT Alfredo Kamara LAB BLOOD ADD-ON Performing Organization Address [facility] Phon e Number [facility] - 200 [place], [place] [address] [facility] [place] [address] CRP (C-Reactive Protein) (09/23/2021 9:07 AM CDT) P athologist Signature C-Reactive <3.0 <=8.0 mg/L 09/23/2021 DTL Protein (CRP), 10:30 AM CDT S Specimen Anatomical Collection Method Collection Time Receive d Time (Source) Location / / Volume Laterality Blood (Blood, 09/23/2021 9:07 AM 09/23/20 21 9:57 Venous) CDT AM CDT Alfredo Kamara LAB BLOOD ADD-ON Performing Organization Address [facility] Phon e Number [facility] - 200 [place], [place] [address] [place] [address] (ABNORMAL) CBC with Differential, Blood (09/23/2021 [...] City/State/ZIP Code Phon e Number [facility] - [address] [place], [place] [address] [facility] [place] [address] [facility] [address] documented in [...]
--- OUTSIDE RECORDS SUMMARY | 2022-11-08 14:05 | XMS_ITS | Encounter Summary ---
:1965 Author Organization [facility] Address [address] [place] [address] Care Team Providers Name Role Phone Unavailable Primary Care Provider Unavailable Reason for Visit Reason Comments Pre-visit Intake Encounter Details Date Type Department Care Team Description 03/11/2021 Clinical Communication Department of [facility], Pre- visit Intake Neurologic Surgery Lilian Jang, in [place], Ph.D. [address] [place] [address] [phone] Social History Tobacco Use Types Packs/Day Years [...]
--- OUTSIDE RECORDS SUMMARY | 2022-11-08 14:05 | XMS_ITS | Encounter Summary ---
:1965 Author Organization [facility] Address [address] [place] [address] Care Team Providers Name Role Phone Unavailable Primary Care Provider Unavailable Reason for Visit Reason Comments Pre-scheduling Questionnaire Hand Pre-Scheduling Qu estionnaire Encounter Details Date Type Department Care Team Description 03/16/2021 Clinical Department of Prescheduling, Pre-scheduli ng Communication Orthopedic Surgery Provider Question elizabeth ( in [place], Hand Pre-Sched [facility] Questionnaire) [address] [place] [phone] Social History Tobacco Use Types Packs/Day Years [...] you attend anabaptist or Patient refused 2021 mormon services? Do [...]
--- OUTSIDE RECORDS SUMMARY | 2022-11-08 14:05 | XMS_ITS | Encounter Summary ---
:1965 Author Organization [facility] Address [address] [place] [address] Care Team Providers Name Role Phone Unavailable Primary Care Provider Unavailable Reason for Visit Outpatient (Routine) - Closed Specialty Diagnoses / Procedures Referred By Contact Refer red To Contact Neurological Surgery Jeannette Cote [place] [address] [place] M.D. [address] [place] [address] Referral ID Status Reason Start Date Expiration Date Visits Requ ested Visits Authorized [id number] Closed 02/17/2021 02/17/2022 1 1 Encounter Details Date Type Department Care Team Description 03/12/2021 Office Visit Department of Gonzalez Benjamin Debra tebral Neurologic Surgery in Lilian Jang, Cinthya castorena ([facility]) (Primary [place], [place] Ph.D. Dx) [address] [place] [address] [place] [phone] Social History Tobacco Use Types Packs/Day [...] 05/17/2022 organizations such as adventist groups, unions, fraHudl or athletic groups, or school groups? How [...]
--- OUTSIDE RECORDS SUMMARY | 2022-11-08 14:05 | XMS_ITS | Encounter Summary ---
:1965 Author Organization [facility] Address [address] [place] [address] Care Team Providers Name Role Phone Unavailable Primary Care Provider Unavailable Reason for Referral Outpatient (Routine) - Closed Specialty Diagnoses / Procedures Referred By Contact Refer red To Contact Diagnoses Dissociation Scapholunate Left Michael Downs M.D. [facility] Procedures ORS Cast Room Visit [address] [place] [phone] Referral ID Status Reason Start Date Expiration Date Visits Requ ested Visits Authorized [id number] Closed 05/08/2021 05/08/2022 1 1 Reason for Visit Reason Comments Follow-up Outpatient (Routine) - Closed Specialty Diagnoses / Procedures Referred By Contact Refer red To Contact Diagnoses Dissociation Scapholunate Left Michael Downs M.D. [facility] Procedures ORS Cast Room Visit [address] [place] [phone] Referral ID Status Reason Start Date Expiration Date Visits Requ ested Visits Authorized [id number] Closed 05/08/2021 05/08/2022 1 1 Encounter Details Date Type Department Care Team Description 05/08/2021 Hospital Encounter Department of Paul Downs M.D. 200 [place] [phone] Dissociation Orthopedic Surgery Dario Noel M.D. [address] [place] [address] [place] [phone] Raeann Left in [place], [place] 200 [place] [address] Social History Tobacco Use Types Packs/Day Years [...] you attend denominational or Patient refused 2021 amish services? Do [...] short-arm cast was applied by the castroom emg technician - The patient is nonweightbearing bearing [...]
--- OUTSIDE RECORDS SUMMARY | 2022-11-08 14:05 | XMS_ITS | Encounter Summary ---
:1965 Author Organization [facility] Address [address] [place] [address] Care Team Providers Name Role Phone Unavailable Primary Care Provider Unavailable Reason for Visit Reason Comments Med Refill Encounter Details Date Type Department Care Team Description 06/04/2021 Refill Department of Orthopedic Pulos, Dario Alejo M.D. Med Refill Surgery in [address] [phone] [place] [address] [place] [address] [phone] Social History Tobacco Use Types Packs/Day Years [...] you attend anabaptist or Patient refused 2021 pentecostalism services? Do [...]
--- OUTSIDE RECORDS SUMMARY | 2022-11-08 14:05 | XMS_ITS | Encounter Summary ---
:1965 Author Organization [facility] Address [address] [place] [address] Care Team Providers Name Role Phone Unavailable Primary Care Provider Unavailable Reason for Visit Reason Comments Post Hospital Follow-up Encounter Details Date Type Department Care Team Description 02/19/2021 Clinical Communication Department of [facility] Post Hospital Neurology in Monica Alvarado R.N. Follow-up [place], [place] [address] [place] [phone] Social History Tobacco Use Types Packs/Day [...] you attend samaritan or Patient refused 2021 yarsani services? Do [...] reports she has not yet picked up [id number] ASA daily and 80 mg Atorvastatin at [...]
--- OUTSIDE RECORDS SUMMARY | 2022-11-08 14:05 | XMS_ITS | Encounter Summary ---
:1965 Author Organization [facility] Address [address] [place] [address] Care Team Providers Name Role Phone Unavailable Primary Care Provider Unavailable Encounter Details Date Type Department Care Team Description 05/04/2021 Clinical Communication Department of Dario Noel , Orthopedic Surgery in [place], [place] [address] [place] [address] [address] [place] [phone] Social History Tobacco Use Types Packs/Day Years [...] you attend mormon or Patient refused 2021 mosque services? Do [...]
--- OUTSIDE RECORDS SUMMARY | 2022-11-08 14:05 | XMS_ITS | Encounter Summary ---
:1965 Author Organization [facility] Address [address] [place] [address] Care Team Providers Name Role Phone Unavailable Primary Care Provider Unavailable Reason for Visit Reason Comments Vertigo and vision problems [facility] Encounter Details Date Type Department Care Team Description 02/18/2021 Clinical Communication Department of Fazal, Robert mendosa and vision Neurology jimmy Celaya M.D. problems ([facility]) [place], [facility] [address] [place], [place] [address] [place] [phone] [place], [place] [phone] (Work) [phone] Social History Tobacco Use Types Packs/Day Years [...] you attend catholic or Patient refused 2021 mormonism services? Do [...]
--- OUTSIDE RECORDS SUMMARY | 2022-11-08 14:05 | XMS_ITS | Encounter Summary ---
:1965 Author Organization [facility] Address [address] [place] [address] Care Team Providers Name Role Phone Unavailable Primary Care Provider Unavailable Reason for Referral Outpatient (Routine) - Closed Specialty Diagnoses / Procedures Referred By Contact Refer red To Contact Diagnoses Dissociation Scapholunate Left Michael Downs M.D. [facility] Procedures ORS Cast Room Visit [address] [place] [phone] Referral ID Status Reason Start Date Expiration Date Visits Requ ested Visits Authorized [id number] Closed 05/08/2021 05/08/2022 1 1 Outpatient (Routine) - Closed Specialty Diagnoses / Procedures Referred By Contact Refer red To Contact Diagnoses Dissociation Scapholunate Left Michael Downs M.D. [facility] Procedures ORS Cast Room Visit [address] [place] [phone] Referral ID Status Reason Start Date Expiration Date Visits Requ ested Visits Authorized [id number] Closed 05/08/2021 05/08/2022 1 1 Reason for Visit Reason Onset Date Comments Left Without Being Seen 07/17/2021 Outpatient (Routine) - Closed Specialty Diagnoses / Procedures Referred By Contact Refer red To Contact Orthopedic Surgery [facility] [address] [place] [phone] Referral ID Status Reason Start Date Expiration Date Visits Requ ested Visits Authorized [id number] Closed 05/04/2021 05/04/2022 1 1 Encounter Details Date Type Department Care Team Description 05/08/2021 Office Visit Department of PulDario willis, Dissocia tion Scapholunate Left (Primary Dx); Orthopedic Surgery in M.D. Procedure And Treatment Not Carried Out Due To Patient Leaving Prior To Being Seen By Health Care Provider [place], [place] [address] [place] [address] [place] [phone] Social History Tobacco Use Types Packs/Day Years [...]
--- OUTSIDE RECORDS SUMMARY | 2022-11-08 14:05 | XMS_ITS | Encounter Summary ---
:1965 Author Organization [facility] Address [address] [place] [address] Care Team Providers Name Role Phone Unavailable Primary Care Provider Unavailable Reason for Visit Physical Therapy (Routine) - Closed Specialty Diagnoses / Procedures Referred By Contact Refer red To Contact Diagnoses Dissociation Scapholunate Left Dario Noel M.D. [facility] Procedures PT or OT eval and treat (first available) [address] [place] [phone] Referral ID Status Reason Start Date Expiration Date Visits Requ ested Visits Authorized [id number] Closed 06/08/2021 06/08/2022 99 99 Encounter Details Date Type Department Care Team Description 06/08/2021 Clinical Support Department of Physical German Noel M.D. [address] [place] [phone] Pain Wrist Left (Primary Dx); Medicine and Veena Quevedo M.S., C.H.T., O.T. [address] [place] [phone] Dissociation Scapholunate Left Rehabilitation in [place], [place] [address] [place] [phone] Social History Tobacco Use Types Packs/Day [...] (HCC) ??? Nicotine Dependence Unspecified ??? 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 Active Hand Exercises (Six Pack) [id number]. Active Wrist Exercises [id number] Assessment Clinical Impression: The patient tolerated the [...]
--- OUTSIDE RECORDS SUMMARY | 2022-11-08 14:05 | XMS_ITS | Encounter Summary ---
:[address] [facility] Address [address] [place] [address] Care Team Providers Name Role Phone Unavailable Primary Care Provider Unavailable Reason for Referral Outpatient (Routine) - Closed Specialty Diagnoses / Procedures Referred By Contact Refer red To Contact Diagnoses Pain Wrist Left Michael Noble Jr., [facility] Procedures PM Device interrogation (clinic) P.A.-C. 200 [place] [address] Referral ID Status Reason Start Date Expiration Date Visits Requ ested Visits Authorized [id number] Closed 03/17/2021 03/17/2022 1 1 RI/CAT/PET Scan (Routine) - Closed Specialty Diagnoses / Procedures Referred By Contact Refer red To Contact Radiology Diagnoses Pain Wrist Left Michael Noble Jr., [facility] Procedures MR Wrist Left without IV Contrast P.A.-C. 200 [place], [place] [phone] Referral ID Status Reason Start Date Expiration Date Visits Requ ested Visits Authorized [id number] Closed 03/17/2021 03/17/2022 1 1 Encounter Details Date Type Department Care Team Description 03/17/2021 Orders Only Department of Michalik, Michael Pain Wris t Left Orthopedic Surgery in Tona Patel Jr. (Primary Dx) [place], [place] 200 [facility] [address] [place] [phone] Social History Tobacco Use Types Packs/Day Years [...] you attend jew or Patient refused 2021 alevism services? Do [...]
--- OUTSIDE RECORDS SUMMARY | 2022-11-08 14:05 | XMS_ITS | Encounter Summary ---
:1965 Author Organization [facility] Address [address] [place] [address] Care Team Providers Name Role Phone Unavailable Primary Care Provider Unavailable Reason for Referral Outpatient (Routine) - Closed Specialty Diagnoses / Procedures Referred By Contact Refer red To Contact Orthopedic Surgery Dario Noel M .D. [facility] 200 [place] [address] Referral ID Status Reason Start Date Expiration Date Visits Requ ested Visits Authorized [id number] Closed 06/08/2021 06/08/2022 1 1 Physical Therapy (Routine) - Closed Specialty Diagnoses / Procedures Referred By Contact Refer red To Contact Diagnoses Dissociation Scapholunate Left Dario Noel M.D. [facility] Procedures PT or OT eval and treat (first available) [address] [place] [phone] Referral ID Status Reason Start Date Expiration Date Visits Requ ested Visits Authorized [id number] Closed 06/08/2021 06/08/2022 99 99 Outpatient (Routine) - Closed Specialty Diagnoses / Procedures Referred By Contact Refer red To Contact Diagnoses Dissociation Scapholunate Left Michael Downs M.D. [facility] Procedures ORS Cast Room Visit [address] [place] [phone] Referral ID Status Reason Start Date Expiration Date Visits Requ ested Visits Authorized [id number] Closed 05/08/2021 05/08/2022 1 1 Reason for Visit Reason Comments Cast Check Follow-up Outpatient (Routine) - Closed Specialty Diagnoses / Procedures Referred By Contact Refer red To Contact Diagnoses Dissociation Scapholunate Left Michael Downs M.D. [facility] Procedures ORS Cast Room Visit [address] [place] [phone] Referral ID Status Reason Start Date Expiration Date Visits Requ ested Visits Authorized [id number] Closed 05/08/2021 05/08/2022 1 1 Encounter Details Date Type Department Care Team Description 06/08/2021 Hospital Encounter Department of Paul Downs M.D. [address] [place] [address] Dissociation Orthopedic Surgery Dario Noel M.D. [address] [place] [address] Scapholunate Left in [place], [place] [address] [place] [phone] Social History Tobacco Use Types Packs/Day Years [...] you attend mandaeism or Patient refused 2021 restorationist services? Do [...]
--- OUTSIDE RECORDS SUMMARY | 2022-11-08 14:05 | XMS_ITS | Encounter Summary ---
:1965 Author Organization [facility] Address [address] [place] [address] Care Team Providers Name Role Phone Unavailable Primary Care Provider Unavailable Reason for Referral MRI/CAT/PET Scan (Routine) - Closed Specialty Diagnoses / Procedures Referred By Contact Refer red To Contact Radiology Diagnoses Pain Wrist Left Michael Noble Jr., [facility] Procedures MR Wrist Left without IV Contrast P.A.-C. 200 [place], [place] [address] Referral ID Status Reason Start Date Expiration Date Visits Requ ested Visits Authorized [id number] Closed 03/17/2021 03/17/2022 1 1 Reason for Visit MRI/CAT/PET Scan (Routine) - Closed Specialty Diagnoses / Procedures Referred By Contact Refer red To Contact Radiology Diagnoses Pain Wrist Left Michael Noble Jr., [facility] Procedures MR Wrist Left without IV Contrast P.A.-C. [address] [place] [phone] Referral ID Status Reason Start Date Expiration Date Visits Requ ested Visits Authorized [id number] Closed 03/17/2021 03/17/2022 1 1 Encounter Details Date Type Department Care Team Description 03/24/2021 Hospital Encounter Department of Michael Noble Wrist Left Radiology, Camelia Perez Jr..A.-[facility]Britton [facility], in 200 [place], [place] [address] [facility] [address] [place], [place] [phone] (Work) [phone] Social History Tobacco Use Types Packs/Day Years [...] you attend anglican or Patient refused 2021 yazidism services? Do [...]
--- OUTSIDE RECORDS SUMMARY | 2022-11-08 14:05 | XMS_ITS | Encounter Summary ---
:1965 Author Organization [facility] Address [address] [place] [address] Care Team Providers Name Role Phone Unavailable Primary Care Provider Unavailable Reason for Referral Outpatient (Routine) - Closed Specialty Diagnoses / Procedures Referred By Contact Refer red To Contact Orthopedic Surgery Michael Noble [facility] , [facility].-[facility]. [facility] [place] [address] Referral ID Status Reason Start Date Expiration Date Visits Requ ested Visits Authorized [id number] Closed 05/04/2021 05/04/2022 1 1 Scheduling Instructions Pulos Encounter Details Date Type Department Care Team Description 05/04/2021 Orders Only Department of Orthopedic Mirna Noble Surgery in [facility] , [facility] C. [address] 200 [place] [phone] (Wo rk) Social History Tobacco Use Types [...] you attend sikh or Patient refused 2021 advent services? Do you belong to any clubs or No 05/17/2022 organizations such as sikh groups, unions, franet[employer] or athletic groups, or school groups? How [...]
--- OUTSIDE RECORDS SUMMARY | 2022-11-08 14:05 | XMS_ITS | Encounter Summary ---
:1965 Author Organization [facility] Address [address] [place] [address] Care Team Providers Name Role Phone Unavailable Primary Care Provider Unavailable Reason for Visit Reason Comments Pre-visit Intake Encounter Details Date Type Department Care Team Description 04/15/2021 Clinical Communication Department of Robert Diehl e-visit Intake Neurology in [place] Celaya [place], [facility] [place], [place] [address] [place] [phone] [place], [place] [phone] (Work) [phone] Social History Tobacco Use Types Packs/Day Years [...]
--- OUTSIDE RECORDS SUMMARY | 2022-11-08 14:05 | XMS_ITS | Encounter Summary ---
:1965 Author Organization [facility] Address [address] [place] [address] Care Team Providers Name Role Phone Unavailable Primary Care Provider Unavailable Reason for Visit Reason Comments Communication Encounter Details Date Type Department Care Team Description 02/19/2021 Clinical Communication Department of Rossy Benjamin Neurologic Surgery in [place]ian Jang, [place], [place] Ph.D. [address] [place] [address] 200 [place] [phone] Social History Tobacco Use Types Packs/Day Years [...] you attend pentecostalism or Patient refused 2021 mandaen services? Do [...]
--- OUTSIDE RECORDS SUMMARY | 2022-11-08 14:05 | XMS_ITS | Encounter Summary ---
:1965 Author Organization [facility] Address [address] [place] [address] Care Team Providers Name Role Phone Unavailable Primary Care Provider Unavailable Encounter Details Date Type Department Care Team Description 03/11/2021 Clinical Communication Department of Ana Segura Orthopedic Surgery in [place], [place] [address] [place] [phone] Social History Tobacco Use Types Packs/Day Years [...] you attend congregation or Patient refused 2021 baptism services? Do [...] Patient would like to be seen in [place]. Referral line to [place] provided to angela batista. Patient aware she will call for apptointment. Telephone Encounter - Jerica Gee L.P.N. - 03/13/2021 9:09 AM CDT Left message to call clinic back. Needs to see a hand surgeon. Telephone Encounter - Christal Abraham L.P.N. - 03/12/2021 3:21 PM CDT Left message for patient to call back. She can contact [place], [place], or sarath frye if she choses. Telephone Encounter - Clemente Schofield M.D. - 03/12/2021 11:23 AM CDT She should see a hand surgeon Telephone Encounter - Esperanza Stratton - 03/11/2021 9:33 AM CDT Reason for Communication: Patient is calling in stating that she is being referred to be seen for a brake in her LEFT hand. Patient is stating that [facility] in [facility] is requesting for patient to be seen by our orthopedic department. Patient is wanting to be seen in [place]. Unable to find any encounters regarding a [...]
--- OUTSIDE RECORDS SUMMARY | 2022-11-08 14:05 | XMS_ITS | Encounter Summary ---
:1965 Author Organization [facility] Address [address] [place] [address] Care Team Providers Name Role Phone Unavailable Primary Care Provider Unavailable Reason for Visit Reason Comments Follow-up [facility] Patient Encounter Details Date Type Department Care Team Description 02/25/2021 Clinical Communication [facility] Neurology jimmy Celaya M.D. Patient) [place], [facility] [place], [place] [address] [place] [phone] [place], [place] [phone] (Work) [phone] Social History Tobacco Use Types Packs/Day Years [...] you attend yarsani or Patient refused 2021 orthodox services? Do [...] so I advised she report to the [facility] as soon as possible to be [...]
--- OUTSIDE RECORDS SUMMARY | 2022-11-08 14:05 | XMS_ITS | Encounter Summary ---
:1965 Author Organization [facility] Address [address] [place] [address] Care Team Providers Name Role Phone Unavailable Primary Care Provider Unavailable Reason for Visit Reason Comments pain medication Encounter Details Date Type Department Care Team Description 06/04/2021 Clinical Communication Department of Bert, Dario willard medication Orthopedic Surgery Lilian Alejo in [place], [address] [place] [address] [place] [address] [place], [place] [phone] (Work) [phone] Social History Tobacco Use Types Packs/Day Years [...] meds/scripts. Patient would like a call - [phone] documented in this encounter Plan of Treatment Not on filedocumented as of this encounter Visit Diagnoses Not on filedocumented in this encounter Additional Health Concerns Assessment Noted Time PHQ-9 Depression Total Score: 16 02/11/2021 12:00 AM C DT documented as of this encounter
--- OUTSIDE RECORDS SUMMARY | 2022-11-08 14:05 | XMS_ITS | Encounter Summary ---
:1965 Author Organization [facility] Address [address] [place] [address] Care Team Providers Name Role Phone Unavailable Primary Care Provider Unavailable Reason for Referral Outpatient (Routine) - Closed Specialty Diagnoses / Procedures Referred By Contact Refer red To Contact Diagnoses Dissociation Scapholunate Left Michael Downs M.D. [facility] Procedures ORS Cast Room Visit [address] [place] [address] Referral ID Status Reason Start Date Expiration Date Visits Requ ested Visits Authorized [id number] Closed 03/24/2021 03/24/2022 1 1 Outpatient (Routine) - Closed Specialty Diagnoses / Procedures Referred By Contact Refer red To Contact Diagnoses Dissociation Scapholunate Left Michael Downs M.D. [facility] Procedures ORS Cast Room Visit [address] [place] [address] Referral ID Status Reason Start Date Expiration Date Visits Requ ested Visits Authorized [id number] Closed 03/24/2021 03/24/2022 1 1 Reason for Visit Reason Comments Pain Appointment Request (Routine) - Closed Specialty Diagnoses / Procedures Referred By Contact Refer red To Contact Orthopedic Surgery Diagnoses Fracture Wrist Hand Closed Initial Referral ID Status Reason Start Date Expiration Date Visits Requ ested Visits Authorized [id number] Closed 03/16/2021 03/16/2022 1 1 Encounter Details Date Type Department Care Team Description 03/24/2021 Admin Visit Department of Dario Noel Dissocia tion Orthopedic Surgery in M.D. Scapholunate Left [place], [place] [address] [facility] (Primary Dx) [address] [place] [address] [phone] Social History Tobacco Use Types Packs/Day Years [...] 70/60 degrees on the contr alateral side. ??Biological Sciences Instructor strength of 10 kg compared to 23 [...] cast was applied by the kevin garcia material handling technician - The patient is nonweightbearing bearin [...]
--- OUTSIDE RECORDS SUMMARY | 2022-11-08 14:05 | XMS_ITS | Encounter Summary ---
:1965 Author Organization [facility] Address [address] [place] [address] Care Team Providers Name Role Phone Unavailable Primary Care Provider Unavailable Reason for Referral Outpatient (Routine) - Closed Specialty Diagnoses / Procedures Referred By Contact Refer red To Contact Diagnoses Dissociation Scapholunate Left Michael Downs M.D. [facility] Procedures ORS Cast Room Visit 200 [place] [address] Referral ID Status Reason Start Date Expiration Date Visits Requ ested Visits Authorized [id number] Closed 03/24/2021 03/24/2022 1 1 Reason for Visit Reason Comments Follow-up Outpatient (Routine) - Closed Specialty Diagnoses / Procedures Referred By Contact Refer red To Contact Diagnoses Dissociation Scapholunate Left Michael Downs M.D. [facility] Procedures ORS Cast Room Visit 200 [place], [place] [address] Referral ID Status Reason Start Date Expiration Date Visits Requ ested Visits Authorized [id number] Closed 03/24/2021 03/24/2022 1 1 Encounter Details Date Type Department Care Team Description 03/24/2021 Hospital Encounter Department of Paul Downs M.D. 200 [place] [phone] Dissociation Orthopedic Surgery Dario Noel M.D. [address] [place] [address] [place] [address] Raeann Left in [place], [place] 200 [place] [address] Social History Tobacco Use Types Packs/Day Years [...] with 70/60 degrees on the contralateral side. Greek Professor strength of 10 kg compared to [...] short-arm cast was applied by the castroom patient care technician - The patient is nonweightbearing [...] 70/60 degrees on the contr alateral side. ??Greek Professor strength of 10 kg compared to [...] ??The clenched fist view was obtained of Dekkun hands, but unfortunately is difficult to assess [...] A short-arm cast was applied [facility] the [facility] patient care technician - The patient is nonweightbearing bearin [...]
--- OUTSIDE RECORDS SUMMARY | 2022-11-08 14:05 | XMS_ITS | Encounter Summary ---
:1965 Author Organization [facility] Address [address] [place] [address] Care Team Providers Name Role Phone Unavailable Primary Care Provider Unavailable Reason for Visit Reason Comments Nicotine Dependence Encounter Details Date Type Department Care Team Description 03/10/2021 Clinical Communication Department of [facility], Carolyn Mccarthy cotine Dependence Nicotine M.S., Dependence, C.T.T.S., [facility] in [address] [place] [address] [place], [place] [phone] (Work) [phone] Social History Tobacco Use Types Packs/Day Years [...] you attend restorationist or Patient refused 2021 catholic services? Do [...]
--- OUTSIDE RECORDS SUMMARY | 2022-11-08 14:06 | XMS_ITS | Encounter Summary ---
:1965 Author Organization [facility] Address [address] [place] [address] Care Team Providers Name Role Phone Unavailable Primary Care Provider Unavailable Encounter Details Date Type Department Care Team Description 02/16/2021 Anesthesia Event Department of Radiology Liban Sunshine APRN, LOCOMOTIVE OBSERVER, DNAP [address] [place] [phone] in [facility] Deep Velasquez M.D. [address] [place] [phone] [place] [phone] Anesthesia Record Procedure Summary Procedure Name Responsible Anesthesia Start Anesthesia Stop Anesthesiologist Time Time IR CEREBRAL Liban Sunshine APRN, 02/16/21 0825 02/16/21 1100 INTRACRANIAL ARTERY LOCOMOTIVE OBSERVER, DNAP EMBOLIZATION Events Date Time Event Comment [...] h andoff to the receiving staff during [facility] ch we 1. Identified the patient [...] 1,000 units/mL injection 6,000 Units heparin standard 31969 Units/250 mL in 0.45 % Sodium C [...] you attend restorationist or Patient refused 2021 rastafari services? Do you belong to any clubs or No 05/17/2022 organizations such as restorationist groups, [employer], [employer] or athletic groups, or school groups? [...] Room / Location: Department of Radiology in [place], [place] Anesthesia Start: 08 Anesthesia Stop: 1100 [...] Procedure Summary Date/Time: 02/16/21 0800 Scheduled providers: Mustahpa Castillo M.D.; Liban Sunshine APRN, CRNA, DNAP; He Crooks M.D. 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 Case discussed with Dr. Castillo. Location: Department of Radiology in [place], [place] Pertinent components of the patient's history [...] with patient /legal guardian or through an educational sign language interpreter. Risks/Benefits/Alternatives of Blood transfusion [...]
--- OUTSIDE RECORDS SUMMARY | 2022-11-08 14:06 | XMS_ITS | Encounter Summary ---
:1965 Author Organization [facility] Address [address] [place] [address] Care Team Providers Name Role Phone Unavailable Primary Care Provider Unavailable Encounter Details Date Type Department Care Team Description 02/11/2021 Ancillary Procedure Department of Radiology Ridge Vega in [facility] raúl Quintana 200 [facility] 200 [place] [phone] (Wo rk) Social History Tobacco Use Types [...] bilateral thalami (series 3 image 36), bilateral STUDIO ARTIST regio n (left greater than right, image [...] bilateral thalami (series 3 image 36), bilateral STUDIO ARTIST regio n (left greater than right, image [...] bilateral thalami (series 3 image 36), bilateral STUDIO ARTIST regio n (left greater than right, image [...] bilateral thalami (series 3 image 36), bilateral STUDIO ARTIST regio n (left greater than right, image [...] bilateral thalami (series 3 image 36), bilateral STUDIO ARTIST regio n (left greater than right, image [...] bilateral thalami (series 3 image 36), bilateral STUDIO ARTIST regio n (left greater than right, image [...]
--- OUTSIDE RECORDS SUMMARY | 2022-11-08 14:06 | XMS_ITS | Encounter Summary ---
:1965 Author Organization [facility] Address 200 [place] [address] Care Team Providers Name Role Phone Unavailable Primary Care Provider Unavailable Reason for Referral Outpatient (Routine) - Closed Specialty Diagnoses / Procedures Referred By Contact Refer red To Contact Neurological Surgery [facility] Lilian 200 [place] [address] Referral ID Status Reason Start Date Expiration Date Visits Requ ested Visits Authorized [id number] Closed 02/17/2021 02/17/2022 1 1 Scheduling Instructions Please schedule with Chief A Neurosurger y Service (Dr. Suhail Benjamin). 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 [facility] Procedures CT Head Neck Angiogram with IV Contrast 200 [place] [address] Referral ID Status Reason Start Date Expiration Date Visits Requ ested Visits Authorized [id number] Closed 02/17/2021 02/17/2022 1 1 Encounter Details Date Type Department Care Team Description 02/17/2021 Orders Only Department of Jeannette Cote Cerebral Infarction Neurologic Surgery in Lilian Souza Due To Embolism Right [place], [place] [address] [facility] Vertebral Artery (HCC) [address] [place], [place] (Primary Dx) [place] [address] [phone] Social History Tobacco Use Types Packs/Day Years [...] you attend sabianist or Patient refused 2021 mosque services? Do [...] ane urysms. 3. 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 Otherwise marshall of Wi llis is intact. Dolichoectasia of [...] 2 mm left supraclinoid aneurysm (557). Otherwise marshall of Wi llis is intact. Dolichoectasia of [...] ane urysms. 3. 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 Jeannette NIELSON [...]
--- OUTSIDE RECORDS SUMMARY | 2022-11-08 14:06 | XMS_ITS | Encounter Summary ---
:1965 Author Organization [facility] Address [address] [place] [address] Care Team Providers Name Role Phone Unavailable Primary Care Provider Unavailable Encounter Details Date Type Department Care Team Description 02/11/2021 Ancillary Procedure Department of Radiology Ridge Vega in [facility] raúl Quintana 200 [facility] 200 [place] [phone] (Wo rk) Social History Tobacco Use Types [...] you attend yazidi or Patient refused 2021 temple services? Do [...] bilateral thalami (series 3 image 36), bilateral TECHNICAL DOCUMENT WRITER regio n (left greater than right, [...] bilateral thalami (series 3 image 36), bilateral TECHNICAL DOCUMENT WRITER regio n (left greater than right, [...] bilateral thalami (series 3 image 36), bilateral TECHNICAL DOCUMENT WRITER regio n (left greater than right, [...] bilateral thalami (series 3 image 36), bilateral TECHNICAL DOCUMENT WRITER regio n (left greater than right, [...] bilateral thalami (series 3 image 36), bilateral TECHNICAL DOCUMENT WRITER regio n (left greater than right, [...] bilateral thalami (series 3 image 36), bilateral TECHNICAL DOCUMENT WRITER regio n (left greater than right, [...]
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
--- OUTSIDE RECORDS SUMMARY | 2022-11-08 14:06 | XMS_ITS | Encounter Summary ---
:1965 Author Organization [facility] Address [address] [place] [address] Care Team Providers Name Role Phone Unavailable Primary Care Provider Unavailable Encounter Details Date Type Department Care Team Description 02/05/2021 Orders Only Pharmacy Prior Auth RO Elsewhere, Pcp [phone] Social History Tobacco Use Types Packs/Day Years [...] you attend holiness or Patient refused 2021 sikhism services? Do [...]
--- OUTSIDE RECORDS SUMMARY | 2022-11-08 14:06 | XMS_ITS | Encounter Summary ---
:1965 Author Organization [facility] Address [address] [place] [address] Care Team Providers Name Role Phone Unavailable Primary Care Provider Unavailable Encounter Details Date Type Department Care Team Description 02/11/2021 Ancillary Procedure Department of Radiology [place] Vega in [facility] raúl Quintana 200 [facility] 200 [place] [phone] (Wo rk) Social History Tobacco Use Types [...] you attend taoism or Patient refused 2021 orthodox services? Do [...] bilateral thalami (series 3 image 36), bilateral SUPERVISOR FERTILIZER regio n (left greater than right, image [...] bilateral thalami (series 3 image 36), bilateral SUPERVISOR FERTILIZER regio n (left greater than right, image [...] bilateral thalami (series 3 image 36), bilateral SUPERVISOR FERTILIZER regio n (left greater than right, image [...] bilateral thalami (series 3 image 36), bilateral SUPERVISOR FERTILIZER regio n (left greater than right, image [...] bilateral thalami (series 3 image 36), bilateral SUPERVISOR FERTILIZER regio n (left greater than right, image [...] bilateral thalami (series 3 image 36), bilateral SUPERVISOR FERTILIZER regio n (left greater than right, image [...]
--- OUTSIDE RECORDS SUMMARY | 2022-11-08 14:07 | XMS_ITS | Encounter Summary ---
:1965 Author Organization [facility] Address [address] [place] [id number] Care Team Providers Name Role Phone Unavailable Primary Care Provider Unavailable Encounter Details Date Type Department Care Team Description 01/16/2021 Anticoagulation Visit Department of Elvira Villalta ([facility]) (Primary Dx); Neurology in [place]. Stain Wiper Anticoagulant Treatment [place] [address] [place], [place] [address] [place] [id number] [place], [place] [phone] (Work) [phone] Social History Tobacco Use Types Packs/Day Years [...] you attend mormonism or Patient refused 2021 nondenominational services? Do [...] [facility] INR 2.0-3.[address] Argenis Diehl ([id number]). The patient was scheduled for an INR recheck on 01/19/21 but we received a message that she had it drawn today, 01/16/21, by [facility] Nurse. I spoke with RADHA Roman [facility] and she relays that the home POC INR today is 3.9. I discussed this with Dr. Argenis Diehl ([phone]) who advises that the patient follow a [...] her primary care provider, Dr. Neri Blackwell, [facility], [place], [place]. I have put in a call for Dr. Blackwell's care team to call us back. Will schedule an INR recheck for 01/20/21. I will fax a standing INR order to RADHA Roman, [facility], phone # [phone], fax #[phone]. She will fax results back to us. [...] OF PHONE CALL. Test results, symptom assessment. TUFTER documented in this encounter Plan of Treatment Not on filedocumented as of this encounter Procedures Procedure Name Priority Date/Time Associated Comments Diagnosis PROTHROMBIN TIME Routine 01/16/2021 2:10 PM Resul ts for this (PT), P PAD TUFTER procedure are i n the results section. documented in this encounter Results Prothrombin Time (PT) (01/16/2021 2:10 PM PAD TUFTER) P athologist Signature EXT INR 3.90 OTHER (SPECIFY IN DEALER ACCOUNTS INVESTIGATOR) Specimen (Source) Anatomical Collection Method Collection Time Re ceived Time Location / / Volume Laterality Blood (Blood, 01/16/2021 2:10 PM Venous) PAD TUFTER Resulting Agency Comment [facility] Historical Provider LAB BLOOD ADD-ON Performing Organization Address City/State/ZIP Code Phon e Number OTHER (SPECIFY IN DEALER ACCOUNTS INVESTIGATOR) OTHER (SPECIFY IN DEALER ACCOUNTS INVESTIGATOR) N/A documented in this encounter Visit Diagnoses Diagnosis Stroke (HCC) - Primary Stain Wiper (Current) Anticoagulant Treatm ent documented in this encounter Additional Health Concerns Assessment Noted Time PHQ-9 Depression Total Score: 5 04/05/2019 8:00 AM CDT documented as of this encounter
--- OUTSIDE RECORDS SUMMARY | 2022-11-08 14:07 | XMS_ITS | Encounter Summary ---
:1965 Author Organization [facility] Address [address] [place] [address] Care Team Providers Name Role Phone Unavailable Primary Care Provider Unavailable Reason for Referral Outpatient (Routine) - Closed Specialty Diagnoses / Procedures Referred By Contact Refer red To Contact Home Health Care Diagnoses Stroke (HCC) Chronic Pain Syndrome Stroke Cerebrovascular Accident Personal History Ric Quinn M.D., M.S. [address] [place] [id number] Referral ID Status Reason Start Date Expiration Date Visits Requ ested Visits Authorized [id number] Closed 02/03/2021 02/03/2022 1 1 PROGRAMMER ANALYST Encounter Details Date Type Department Care Team Description 01/31/2021 - Hospital Encounter [facility] Blanca, Stroke (H CC) (Primary Dx); [facility], [address] [place] [address] Stroke Cerebrovascular Accident Personal History [facility], [facility] [phone] floor [phone] [place] [address] (Work) [place], [place] [phone] (Fax) [phone] Social History Tobacco Use Types Packs/Day Years [...] Comments Blood Pressure 133/71 02/03/2021 5:15 PM SQL PROGRAMMER ANALYST Pulse 92 02/03/2021 5:15 PM SQL PROGRAMMER ANALYST Temperature 36.5 ??C (97.7 ??F) 02/03/2021 5:15 PM SQL PROGRAMMER ANALYST Respiratory Rate 17 02/03/2021 5:15 PM SQL PROGRAMMER ANALYST Oxygen Saturation 97% 02/03/2021 5:15 PM SQL PROGRAMMER ANALYST Inhaled Oxygen Concentration - - Weight 78.8 kg (173 lb 11.6 oz) 01/31/2021 9:39 PM SQL PROGRAMMER ANALYST Height 152.4 cm (5') 01/31/2021 9:39 PM SQL PROGRAMMER ANALYST Body Mass Index 33.93 01/31/2021 9:39 PM SQL PROGRAMMER ANALYST documented in this encounter Discharge Summaries Malcom Torres M.D. - 02/03/2021 2:24 PM CST DISCHARGE SUMMARY BRIEF OVERVIEW Hospital: [facility] Discharge Provider: Nan Rios M.D. Primary Team: [facility] Neurology Stroke and Cerebrovascular Disease No [...] Shewas subsequently admitted directly to [facility] Neurology Stroke service for further workup and [...] ??C, temperature source Oral, resp. rate 17, cizpsh700.4 cm, weight 78.8 kg, SpO2 94 %. [...] were provided to the patient and caregiver(s). PROGRAMMER ANALYST documented in this encounter Discharge Instructions Discharge InstructionsLaquita Raines - 02/02/2021 7:23 AM CST You were discharge from the Neurology Stroke Service. Please Identify this service name if you call with questions after your hospitalization. PROGRAMMER ANALYST Discharge Instr - ActivityLeonides Liang PBrittonT. - 02/02/2021 1:13 PM SQL PROGRAMMER ANALYST Physical Therapy Discharge Summary MOBILITY RESTRICTIONS/PRECAUTIONS: Fall [...] 02/02/2021 by Leonides Liang P.T. Contact information: [facility], [address] Melissa, PROGRAMMER ANALYST AttachmentsThe following attachments cannot be sent through Care Everywhere. 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 - 02/03/2021 1:57 PM CST No PT intervention today as patient was at an MRI this morning, now stating that she has just gone for a walk and plans are for dc to home with intermittent assist from her son. Helen Greer, PT PROGRAMMER ANALYST Catalina Panchal, R.N. - 02/03/2021 1:49 PM CST Patient discussed at Stroke Multidisciplinary Rounds. Plan for the day: Case Management Following, PT/OT, Medication Management, MRI/MRA Plan for the Stay: Stroke w/u Discharge barriers: Inpatient Needs Recommended [facility] PROGRAMMER ANALYST Nan Rios M.D. - 02/03/2021 10:36 AM [...] pain syndrome, fibromyalgia, and nicotine use disorder. PROGRAMMER ANALYST Leonides Kumar M.D. - 02/03/2021 7:09 AM [...] status: Prior Disposition: Home Plan discussed with [facility] Neurology Stroke and Cerebrovascular Disease Duplex Trimmer, Dr. Rios. Please page the [facility] Neurology Stroke and Cerebrovascular Disease service pager at [phone] with any questions. Leonides Kumar M.D. PROGRAMMER ANALYST Makenzie Figueredo O.T.Katarina - 02/02/2021 3:24 PM [...] home to ensure her safety. From the Personnel Associate's perspective, the patient is not an [...] Treatment Time (min): 32 min MILA Cardoza PROGRAMMER ANALYST Catalina Panchal RBetsy - 02/02/2021 2:31 PM CST Patient discussed at Stroke Multidisciplinary Rounds. Plan for the day: MRI, Case Management Consult, PT/OT, Medication Management Plan for the Stay: Stroke w/u Discharge barriers: Inpatient Needs Recommended discharge disposition: [facility] PROGRAMMER ANALYST Leonides Liang P.T. - 02/02/2021 12:58 PM [...] Time (min): 32 min Leonides Liang P.T. PROGRAMMER ANALYST Nan Rios M.D. - 02/02/2021 10:27 AM [...] pain syndrome, fibromyalgia, and nicotine use disorder. PROGRAMMER ANALYST Jessie Rock Pharm.D., R.Ph. - 02/02/2021 10:21 AM CST Images from the original note were not included. Admission Medication History Note Adherence issues: Unable to assess Medication list source: Pharmacy or dispense records. Medication list provided by [facility] in [place]. Most recent dispensing information obtained. Multiple changes [...] by mouth 2 (two) times a day. PROGRAMMER ANALYST Leonides Kumar M.D. - 02/02/2021 6:55 AM [...] status: Prior Disposition: Home Plan discussed with [facility] Neurology Stroke and Cerebrovascular Disease Duplex Trimmer, Dr. Rios. Please page the [facility] Neurology Stroke and Cerebrovascular Disease service pager at [phone] with any questions. Leonides Kumar M.D. PROGRAMMER ANALYST Leonides Kumar M.D. - 02/01/2021 6:36 AM [...] status: Prior Disposition: Home Plan discussed with [facility] Neurology Stroke and Cerebrovascular Disease Duplex Trimmer, Dr. Rios. Please page the [facility] Neurology Stroke and Cerebrovascular Disease service pager at [phone] with any questions. Leonides Kumar M.D. PROGRAMMER ANALYST documented in this encounter H&P Notes Nan [...] segment. ?? The patient presented to the [facility] with acute onset vertigo which occurred yesterday afternoon while she was at [facility]. She bent forward and complained of neck pain which radiated to the top of her head. She also complained of warmth all over her body and generalised weakness. ?? With effort, she was able to ambulate back to her car with her groceries, where she met her son, whothen took her to the [facility]. There, the patient had a head CT the chronic left cerebellar infarct. There was also concern for a new infarct in the right thalamus. INR was 1.35. She was transferred to [facility] for further evaluation. ?? Today, she feels [...] pain syndrome, fibromyalgia, and nicotine use disorder. PROGRAMMER ANALYST Marbella Cutler M.D. - 02/01/2021 2:55 AM [...] V4 segment. The patient presented to the [facility] with acute onset vertigo which occurred yesterday afternoon while she was at [facility]. She bent forward and complained of neck pain which radiated to the top of her head. She also complained of warmth all over her body and generalised weakness. With effort, she was able to ambulate back to her car with her groceries, where she met her son, whothen took her to the [facility]. There, the patient had a head CT the chronic left cerebellar infarct. INR was 1.35. She was transferred to [facility] for further evaluation. On the floor, she was hemodynamically stable but complained of ongoing vertigo, with difficulty keeping her eyes open. Social history: she is currently unemployed but previously worked at a [employer] and [employer]. She is fully independent of her ADLs [...] admitting resident. Please page the Stroke service [phone] with questions/concerns. PROGRAMMER ANALYST Gerald England M.D. - 01/31/2021 9:16 PM [...] Shewas subsequently admitted directly to [facility] Neurology Stroke service for further workup and [...] COMPUTER NAVIGATION.; Surgeon: Darlin Olmedo M.D.; Location: [facility] ROMB OR ??? HYSTERECTOMY ??? JOINT [...] More than three times a week Attends cheondoism service: Patient refused Active member of club [...] normal caliber bilateral MCAs, ACAs and internet architect. Patent anterior and right posterior communicating [...] chronic pain syndrome, fibromyalgia, nicotine use disorder, joyec-menopausal on exogenous estrogen, left paraclinoid ICA aneurysm, [...] page the Cerebrovascular Neurology Service pager at [phone] with any questions or concerns. [facility] Stroke Neurology Service Sheet Metal Duct Installer Helper: Nan England M.D. STROKE DOCUMENTATION: Stroke Center [...] to hemorrhage and/or hemorrhagic risk Prestroke modified Ciales Score (mRS): 1 - No significant disability. [...] 30 or greater) and hormonal contraceptive use PROGRAMMER ANALYST documented in this encounter Consult Notes Pamela Middleton M.S., TrayC., C.T.T.S. - 02/03/2021 10:08 AM CSTAssociated Order(s): IP CONSULT TO INTERNAL MEDICINE NICOTINE DEPENDENCE; IP CONSULT TO INTERNAL MEDICINE NICOTINE DEPENDENCE SUBJECTIVE Consults REASON FOR CONSULT Admitting Service: Neurology Reason for Consult: Tobacco Use Disorder HISTORY OF PRESENT ILLNESS Angie Bender is a 55 y.o. female who was seen at [place] and is being evaluated for tobacco use [...] the patient with educational materials and [facility] contact information. Patient is unable [...] Middleton M.S., Delvin, C.T.T.S. 02/03/2021 10:08 AM SQL PROGRAMMER ANALYST PROGRAMMER ANALYST Catalina Panchal, RBrittonNBritton - 02/02/2021 2:11 PM CSTAssociated Order(s): IP CONSULT TO CARE MANAGEMENT Discharge Planning Assessment SUBJECTIVE Referral Data Referral Source: Early Screen for Discharge Planning Referral Reason: Discharge Planning Discharge Planning: Home health Who was present during the interview?: Patient Occupational Therapist'S Assistant Services Used: No Patient Information Primary Caregiver: Self Legal Information Legal Decision Maker: Self Legal Status: Voluntary Caregiver Information Self Services Requested Home Health: nursing home Level of Care: Intermediate OBJECTIVE Functional Status (ADLs) Functional Status: Minimum assistance Assistive Devices: Walker, Shower chair, Eyeglasses, Hearing aids Dressing: Independent Feeding: Independent Bathing: Independent Grooming: Independent Toileting: Independent Transfer to/from Bed, Chair Etc.: Independent Mobility: Independent Meal Prep: Independent Medication Setup/Administration: Needs assistance Telephone Use: Independent Housekeeping: Independent Shopping: Independent Managing Finances: Independent Behavior: Oriented Communication: Talks, Understands speaking, Understands Chinese Environmental Supports Home Environment: House Anticipated Needs/Assistive [...] Nurse visit Home Care Agency Name : [facility] Anticipated Discharge Destination: Home-Health Care [facility] Recommended Discharge Services: Nursing Does the patient need discharge transport arranged?: No ASSESSMENT / PLAN Plan Assessment: The probate lawyer met with Angie Bender to discuss her current hospitalization and home goingneeds. The patient was unaccompanied. The patient was a reliable historian, but was lacking completedetails at times. The role of probate lawyer was reviewed. The patient reviewed her prior level of care and support system. The patient receives support from her son. The patient described her living environment as a single level home with level entry. Housekeeping, grocery shopping, meal prep, and other household responsibilities have previously been completed by patient. probate lawyer discussed the patient's potential needs at dismissal based on their home setti ng, previous needs and responsibilities, homebound status, and relevant assessments with the patient. The patient will be safe and supported to return home with [facility] or previous services noted above when [...] dismissal will be provided by family--son. 3. probate lawyer recommended nothing at this time. 4. probate lawyer provided information regarding the dismissal process. 5. probate lawyer placed or requested the following hospital-based consult orders and/or referrals:None. 6. probate lawyer will continue to assess for homegoing needs with the interdisciplinary team. 7. probate lawyer encouraged the patient to reach out with any questions/concerns. Care Management will continue to follow. Patient to discharge with home health care. [facility] - Admitted Since 01/31/2021 The patient receives usp visits 1-2x week. She has qualified for HOUSEKEEPING SUPERVISOR, homemaking, and home health aide visits, but [...] 12/07/2019 Procedure: EXTRADURAL COMPUTER NAVIGATION.; Surgeon: Darlin lOmedo M.D.; Location: [facility] OR ??? HYSTERECTOMY [...] With: Alone Receives Help From: Family, Friend(s), gas station service attendant ADL Assistance: Independent IADL/Homemaking Assistance: Required assistance IADL/Homemaking Assistance Comments: Has assistance with meals on wheels, cleaning, and medication management Occupational Role: On disability Prior Mobility/Functional Transfers Level of Claiborne: Independent Previous Transfer/Mobility Assistance Comments: Patient reports [...] Time (min): 25 min Radha Samuel P.T. PROGRAMMER ANALYST Rosario Lopez O.Jolanta. - 02/01/2021 3:17 PM [...] With: Alone Receives Help From: Family, Friend(s), gas station service attendant ADL Assistance: Independent IADL/Homemaking Assistance: Required assistance IADL/Homemaking Assistance Comments: Has assistance with meals on wheels, cleaning, and medication management Driving: Independent Occupational Role: On disability Occupational Role Comments: Previously worked at a [employer] and [employer] Prior Mobility/Functional Transfers Level of Claiborne: Independent Home Living Type of Home: Apartment [...] Time (min): 60 min Rosario Lopez O.T. PROGRAMMER ANALYST Maria M Duque M.D. - 02/01/2021 7:21 AM CSTAssociated Order(s): IP CONSULT TO PHYSICAL MEDICINE & REHABILITATION Consult received for Physical Medicine and Rehabilitation Consult Service. I reviewed the electronic health record. I have triaged to therapy only; no car tracer consult appears to be necessary at this time. If therapists or referring service feel that a car tracer review is necessary, please send a new consult request with only the Physician consult - Physical Medicine and Rehabilitation consult (hospital) item selected. PROGRAMMER ANALYST documented in this encounter Nursing Notes Sofie [...] by: Sofie Sutton R.N. 02/03/21 5:24 PM SQL PROGRAMMER ANALYST PROGRAMMER ANALYST Sofie Sutton R.N. - 02/03/2021 5:20 PM [...] by: Sofie Sutton R.N. 02/03/21 5:22 PM SQL PROGRAMMER ANALYST PROGRAMMER ANALYST Marlene Grover R.N. - 02/03/2021 5:14 AM [...] Goal: Patient discharge needs identified Outcome: Progressing PROGRAMMER ANALYST Mague Rudolph R.N. - 02/02/2021 5:03 AM CST Shift Goals: Clinical Goals for the Shift: patient will use call light appropriately Identify possible barriers to meeting goals/advancing plan of care: End of Shift Summary: patient met goal PROGRAMMER ANALYST Valarie Grayson R.N. - 02/01/2021 5:59 PM CST Shift Goals: Clinical Goals for the Shift: Patient will tolerate MRI Identify possible barriers to meeting goals/advancing plan of care: Patient's medical payment poster End of Shift Summary: Goal not met. MRI scheduled for Tuesday related to device monitoring. Electronically signed by: Valarie Grayson R.N. 02/01/21 5:59 PM SQL PROGRAMMER ANALYST Problem: SKIN/TISSUE INTEGRITY Goal: Skin/Tissue integrity maintained or improved Outcome: Progressing Problem: SAFETY ADULT Goal: Maintain a safe environment Outcome: Progressing Problem: SAFETY ADULT - RISK FOR FALL AND OR FALL INJURY Goal: Patient remains free from fall/fall injury Outcome: Progressing PROGRAMMER ANALYST documented in this encounter Miscellaneous Notes [...] Shewas subsequently admitted directly to [facility] Neurology Stroke service for further workup and [...] after a CTA head/neck in 3 months. PROGRAMMER ANALYST documented in this encounter Plan of Treatment Scheduled Referrals Name Type Priority Associated Diagnoses Order S chedule Non-[facility] Outpatient Referral Routine Stroke (HCC) Ordered: Health Referral Chronic Pain Syn drome 02/03/2021 Stroke Cerebrovascular Accident Personal History documented as of this encounter Procedures Procedure Name Priority Date/Time Associated Comments Diagnosis MR NECK ANGIOGRAM RAD - Routine 02/03/2021 Results f or WITHOUT AND WITH IV (most inpatients 12:39 PM SQL PROGRAMMER ANALYST this procedure CONTRAST and all are in the outpatients) results section. MR BRAIN WITHOUT AND RAD - Routine 02/03/2021 Result s for WITH IV CONTRAST (most inpatients 12:34 PM SQL PROGRAMMER ANALYST this pr ocedure and all are in the outpatients) results section. DX ABDOMEN SUPINE WITH RAD - Routine 02/02/2021 3:26 R esults for UPRIGHT OR DECUBITUS 2 (most inpatients PM SQL PROGRAMMER ANALYST t his procedure VIEWS and all are in the outpatients) results section. PROTHROMBIN TIME (PT), Routine 02/02/2021 5:20 Re sults for P AM SQL PROGRAMMER ANALYST this procedure are in the results section. LIPID PANEL, S Routine 02/01/2021 5:21 Results fo r AM SQL PROGRAMMER ANALYST this procedure are in the results section. RENAL FUNCTION PANEL, S Routine 02/01/2021 5:21 R esults for AM SQL PROGRAMMER ANALYST this procedure are in the results section. FOLATE, S Routine 02/01/2021 5:21 Results for AM SQL PROGRAMMER ANALYST this procedure are in the results section. VITAMIN B12 ASSAY, S Routine 02/01/2021 5:21 Resu lts for AM SQL PROGRAMMER ANALYST this procedure are in the results section. ECG Routine 01/31/2021 Results for 11:35 PM SQL PROGRAMMER ANALYST this procedure are in the results section. SARS CORONAVIRUS 2, Routine 01/31/2021 Results for RNA, RAPID POC, V 10:32 PM SQL PROGRAMMER ANALYST this proce dure are in the results section. ELECTROLYTE (CHEM 4) Routine 01/31/2021 9:44 Resu lts for PANEL, S/P PM SQL PROGRAMMER ANALYST this procedure are in the results section. ACTIVATED PARTIAL Routine 01/31/2021 9:44 Results for THROMBOPLASTIN TIME PM SQL PROGRAMMER ANALYST this pro cedure (APTT), P are in the results section. PROTHROMBIN TIME (PT), Routine 01/31/2021 9:44 Re sults for P PM SQL PROGRAMMER ANALYST this procedure are in the results section. CBC WITH DIFFERENTIAL, Routine 01/31/2021 9:44 Re sults for B PM SQL PROGRAMMER ANALYST this procedure are in the results section. ALANINE Routine 01/31/2021 9:44 Results for AMINOTRANSFERASE (ALT), PM SQL PROGRAMMER ANALYST this procedure S/P are in the results section. ASPARTATE Routine 01/31/2021 9:44 Results for AMINOTRANSFERASE (AST), PM SQL PROGRAMMER ANALYST this procedure S/P are in the results section. THYROID-STIMULATING Routine 01/31/2021 9:44 Resul ts for HORMONE-SENSITIVE PM SQL PROGRAMMER ANALYST this proce dure (S-TSH) are in the results section. HEMOGLOBIN A1C, B Routine 01/31/2021 9:44 Results for PM SQL PROGRAMMER ANALYST this procedure are in the results section. documented in this encounter Results MR Neck Angiogram without and with IV Contrast (02/03/2021 12:39 PM SQL PROGRAMMER ANALYST) Anatomical Region Laterality Modality Neck, Neuroradiology RST LOS, Neuroradiology ARZ [facility], N/A Magnetic Resonance Neuroradiology FLA [facility] Specimen (Source) Anatomical Collection Method Collection Time Re ceived Time Location / / Volume Laterality 02/03/2021 11:37 AM SQL PROGRAMMER ANALYST Impressions 02/03/2021 1:26 PM SQL PROGRAMMER ANALYST 1. Infarctions in the posterior circulation of [...] technica l limitations. Narrative 02/03/2021 1:26 PM SQL PROGRAMMER ANALYST EXAM: MR BRAIN WITHOUT AND WITH IV [...] and with IV Contrast (02/03/2021 12:34 PM SQL PROGRAMMER ANALYST) Anatomical Region Laterality Modality Head, Brain, Neuroradiology RST LOS, Neuroradiology ADILIA N/A Magnetic Resonance LOS, Neuroradiology FLA [facility] Specimen (Source) Anatomical Collection Method Collection Time Re ceived Time Location / / Volume Laterality 02/03/2021 11:37 AM SQL PROGRAMMER ANALYST Impressions 02/03/2021 1:26 PM SQL PROGRAMMER ANALYST 1. Infarctions in the posterior circulation of [...] technica l limitations. Narrative 02/03/2021 1:26 PM SQL PROGRAMMER ANALYST EXAM: MR BRAIN WITHOUT AND WITH IV [...] or Decubitus 2 Views (02/02/2021 3:26 PM SQL PROGRAMMER ANALYST) Anatomical Region Laterality Modality Abdomen, Abdominal RST LOS, Abdominal ARZ LOS, Right Digital Radiography Abdominal FLA LOS Specimen (Source) Anatomical Collection Method Collection Time Re ceived Time Location / / Volume Laterality 02/02/2021 3:49 PM SQL PROGRAMMER ANALYST Impressions 02/02/2021 3:50 PM SQL PROGRAMMER ANALYST Spinal stimulator device with tip over the T7-8 interspace. Generator pack posterior to the left janett ac crest. Postoperative changes ventral hernia repair. Surgical marylin near the GE junction. Cholecystectomy. Lung bases are clear. Narrative 02/02/2021 3:50 PM SQL PROGRAMMER ANALYST EXAM: ??DX ABDOMEN SUPINE WITH UPRIGHT OR [...] (ABNORMAL) Prothrombin Time (PT) (02/02/2021 5:20 AM SQL PROGRAMMER ANALYST) [facility] Method Time Signature Prothrombin 16.2 (H) 9.4 - 12.5 02/02/2021 DTL Time, P sec 6:12 AM SQL PROGRAMMER ANALYST INR 1.5 0.9 - 1.1 02/02/2021 DTL 6:12 AM SQL PROGRAMMER ANALYST Comment: ----ADDITIONAL INFORMATION---- Standard intensity warfarin therapeutic range: 2.0 to 3.0 ?? High intensity warfarin therapeutic rang e: 2.5 to 3.5 Specimen Anatomical Collection Method Collection Time Receive d Time (Source) Location / / Volume Laterality Blood (Blood, 02/02/2021 5:20 AM 02/03/20 5:48 Venous) SQL PROGRAMMER ANALYST AM SQL PROGRAMMER ANALYST Leonides Kumar M.D. LAB BLOOD ADD-ON Performing Organization Address City/State/ZIP Code Phon e Number [facility] - [address] [place], [place] [address] [facility] [place] [address] [facility] [address] [facility] Renal Function Panel (02/01/2021 5:21 AM SQL PROGRAMMER ANALYST) P athologist Signature Potassium, S 4.3 3.6 - 5.2 02/01/2021 DTL mmol/L 6:26 AM SQL PROGRAMMER ANALYST Sodium, S 139 135 - 145 02/01/2021 DTL mmol/L 6:26 AM SQL PROGRAMMER ANALYST Chloride, S 106 98 - 107 02/01/2021 DTL mmol/L 6:26 AM SQL PROGRAMMER ANALYST Bicarbonate, S 25 22 - 29 02/01/2021 DTL mmol/L 6:26 AM SQL PROGRAMMER ANALYST Anion Gap 8 7 - 15 02/01/2021 DTL 6:26 AM SQL PROGRAMMER ANALYST BUN (Blood Urea 14 6 - 21 02/01/2021 DTL Nitrogen), S mg/dL 6:26 AM SQL PROGRAMMER ANALYST Creatinine 0.74 0.59 - 02/01/2021 DTL 1.04 mg/dL 6:26 AM SQL PROGRAMMER ANALYST eGFR-Non >90 >=60 02/01/2021 DTL Black/ mL/min/BSA 6:26 AM SQL PROGRAMMER ANALYST [place] Comment: ----ADDITIONAL INFORMATION---- Estimated GFR calculated using the 2009 CKD_EPI creatinine equation. eGFR-Black/ >90 >=60 mL/min/BSA 2020 6:26 AM SQL PROGRAMMER ANALYST DTL Comment: ----ADDITIONAL INFORMATION---- Estimated GFR calculated using the 2009 CKD_EPI creatinine equation. Calcium, Total, S 9.2 8.6 - 10.0 mg/dL 02/01/2021 6:26 AM SQL PROGRAMMER ANALYST DTL Glucose, S 96 70 - 140 mg/dL 02/01/2021 6:26 AM SQL PROGRAMMER ANALYST D TL Albumin, S 3.6 3.5 - 5.0 g/dL 02/01/2021 6:26 AM SQL PROGRAMMER ANALYST D TL Phosphorus (Inorganic), S 4.0 2.5 - 4.5 mg/dL 02/02/20 6:26 AM SQL PROGRAMMER ANALYST DTL Specimen Anatomical Collection Method Collection Time Receive d Time (Source) Location / / Volume Laterality Blood (Blood, 02/01/2021 5:21 AM 02/02/20 5:52 Venous) SQL PROGRAMMER ANALYST AM SQL PROGRAMMER ANALYST Gerald England M.D. LAB BLOOD ADD-ON Performing Organization Address City/[facility] Phon e Number [facility] - [address] [place] [address] [facility] [address] [facility] (ABNORMAL) Vitamin B12 Assay (02/01/2021 5:21 AM SQL PROGRAMMER ANALYST) Analysis Performed At Patho logist Time Signature Vitamin B12 >1400 (H) 180 - 914 02/02/2021 DTL Assay, S ng/L 7:10 AM SQL PROGRAMMER ANALYST Comment: ----ADDITIONAL INFORMATION---- In patients being evaluated [...] (Blood, 02/01/2021 5:21 AM 02/02/20 5:52 Venous) SQL PROGRAMMER ANALYST AM SQL PROGRAMMER ANALYST Gerald England M.D. LAB BLOOD ADD-ON Performing Organization Address City/[facility] Phon e Number [facility] - [address] [place], [place] [address] [place] [id number] [facility] [address] [facility] Folate (02/01/2021 5:21 AM SQL PROGRAMMER ANALYST) P athologist Signature Folate, S 17.9 >=4.0 mcg/L 02/02/2021 7:09 DTL AM SQL PROGRAMMER ANALYST Specimen Anatomical Collection Method Collection Time Receive d Time (Source) Location / / Volume Laterality Blood (Blood, 02/01/2021 5:21 AM 02/02/20 5:52 Venous) SQL PROGRAMMER ANALYST AM SQL PROGRAMMER ANALYST Gerald England M.D. LAB BLOOD ADD-ON Performing Organization Address City/[facility] Phon e Number [facility] - [address] [place] [address] [facility] [place] [address] [facility] [address] [facility] Lipid Panel (02/01/2021 5:21 AM SQL PROGRAMMER ANALYST) P athologist Signature Cholesterol, 157 mg/dL 02/01/2021 DTL Total 6:27 AM SQL PROGRAMMER ANALYST Comment: ----REFERENCE VALUE---- Desirable: < 200 Borderline high: 200 - 239 High: > or = 240 Triglycerides 107 mg/dL 02/01/2021 6:27 AM SQL PROGRAMMER ANALYST DTL Comment: ----REFERENCE VALUE---- Normal: <150 Borderline high: 150-199 High: 200-499 Very high: > or =500 Cholesterol, HDL, S 88 >=50 mg/dL 02/01/2021 6:27 AM SQL PROGRAMMER ANALYST DTL Calculated LDL 48 mg/dL 02/01/2021 6:27 AM SQL PROGRAMMER ANALYST DT L Comment: ----REFERENCE VALUE---- Desirable: <100 Above Desirable: 100-129 Borderline high: 130-159 High: 160-189 Very high: > or =190 Cholesterol, Non-HDL, Calculated 69 mg/dL 021 6:27 AM SQL PROGRAMMER ANALYST DTL Comment: ----REFERENCE VALUE---- Desirable: <130 Above Desirable: 130-159 Borderline high: 160-189 High: 190-219 Very high: > or =220 Specimen Anatomical Collection Method Collection Time Receive d Time (Source) Location / / Volume Laterality Blood (Blood, 02/01/2021 5:21 AM 02/02/20 5:52 Venous) SQL PROGRAMMER ANALYST AM SQL PROGRAMMER ANALYST Gerald England M.D. LAB BLOOD ADD-ON Performing Organization Address City/[facility] Phon e Number [facility] - [address] [place], [place] [address] [facility] [place] [address] [facility] [address] [facility] ECG 12 Lead (01/31/2021 11:35 PM SQL PROGRAMMER ANALYST) P athologist Signature Ventricular Rate 60 BPM MUSE ECG/Min VA Interval 170 ms MUSE QRSD Interval 88 ms MUSE QT Interval 434 ms MUSE QTC Interval 434 ms MUSE P Scio 31 degrees MUSE R Scio -16 degrees MUSE T Wave Scio 3 degrees MUSE Specimen Anatomical Collection Method Collection Time Receive d Time (Source) Location / / Volume Laterality 01/31/2021 11:35 02/01/2021 6:10 PM SQL PROGRAMMER ANALYST AM SQL PROGRAMMER ANALYST Impressions MUSE - 02/01/2021 6:10 AM SQL PROGRAMMER ANALYST Normal sinus rhythm Minimal voltage criteria for LVH, may be normal variant Nonspecific ST abnormality When compared with ECG of 30-MAR-2019 09 :30, No significant change was found Reviewed by SADNRINE Estes Narrative This result has an attachment [...] Rapid POC, V Asymptomatic (01/31/2021 10:32 PM SQL PROGRAMMER ANALYST) [facility] gist Method Time Signature SARS Undetected Undetected 01/31/2021 DTLR Coronavirus-2 10:52 PM SQL PROGRAMMER ANALYST , RNA, Rapid POC, V Comment: Negative for SARS-CoV-2. The Cue COVID-19 test is a molecular shahzad t for SARS-CoV-2, the virus that causes COVID- 19. A Negative result means that the Cue COV ID-19 test did not detect SARS-CoV-2 virus in your sample. Cue COVID-19 test uses the [employer] System. This test has received Emergency Use Authorization (EUA) by the U.S. Food and Drug Administration (FDA) and is used per man ufacturer instructions. Performance characteristic s were verified by [facility] in a manner consistent with CLIA requirements. Fact sheets for this Emerg ency Use Authorization (EUA) can be found at the following links: Providers: [email or web address] Patients: [email or web address].pdf SARS Coronavirus 2, Source Nasopharynx DEFAULT 01/31/2021 10:52 PM SQL PROGRAMMER ANALYST DTLR Specimen Anatomical Collection Method Collection Time Receive d Time (Source) Location / / Volume Laterality Varies 01/31/2021 10:32 01/31/2021 (Nasopharynx) PM SQL PROGRAMMER ANALYST 10:32 PM SQL PROGRAMMER ANALYST Nan Rios M.D. LAB MICROBIOLOGY - GENERAL O RDERABLES Performing Organization Address City/State/ZIP Code Phon e Number PERFORMING LABS, REF [facility] [place] [address] INTERFACE Ref Interface [address] [facility] DT Performing Labs, [place] [address] Interface [address] [facility] Electrolyte (Chem 4) Panel (01/31/2021 9:44 PM SQL PROGRAMMER ANALYST) P athologist Signature Potassium, P 4.0 3.6 - 5.2 01/31/2021 STMA mmol/L 10:06 PM SQL PROGRAMMER ANALYST Sodium, P 137 135 - 145 01/31/2021 STMA mmol/L 10:06 PM SQL PROGRAMMER ANALYST Chloride, P 104 98 - 107 01/31/2021 STMA mmol/L 10:06 PM SQL PROGRAMMER ANALYST Bicarbonate, P 24 22 - 29 01/31/2021 STMA mmol/L 10:06 PM SQL PROGRAMMER ANALYST Anion Gap, P 9 7 - 15 01/31/2021 STMA 10:06 PM SQL PROGRAMMER ANALYST Specimen Anatomical Collection Method Collection Time Receive d Time (Source) Location / / Volume Laterality Blood (Blood, 01/31/2021 9:44 PM 02/01/20 21 9:56 Venous) SQL PROGRAMMER ANALYST PM SQL PROGRAMMER ANALYST Gerald England M.D. LAB BLOOD ADD-ON Performing Organization Address City/[facility] Phon e Number [facility] - [address] [place], [place] [address] [facility] [place] [address] [facility] [address] (ABNORMAL) Prothrombin Time (PT) (01/31/2021 9:44 PM SQL PROGRAMMER ANALYST) [facility] Method Time Signature Prothrombin 15.5 (H) 9.4 - 12.5 01/31/2021 DTL Time, P sec 10:27 PM SQL PROGRAMMER ANALYST INR 1.4 0.9 - 1.1 01/31/2021 DTL 10:27 PM SQL PROGRAMMER ANALYST Comment: ----ADDITIONAL INFORMATION---- Standard intensity warfarin therapeutic range: 2.0 to 3.0 ?? High intensity warfarin therapeutic rang e: 2.5 to 3.5 Specimen Anatomical Collection Method Collection Time Receive d Time (Source) Location / / Volume Laterality Blood (Blood, 01/31/2021 9:44 PM 02/01/20 21 Venous) SQL PROGRAMMER ANALYST 10:06 PM SQL PROGRAMMER ANALYST Gerald England M.D. LAB BLOOD ADD-ON Performing Organization Address City/[facility] Phon e Number [facility] - [address] APTT (Activated Partial Thromboplastin Time) (01/31/2021 9:44 PM SQL PROGRAMMER ANALYST) P athologist Signature Activated 35 25 - 37 sec 01/31/2021 DT Partial 10:27 PM SQL PROGRAMMER ANALYST Thrombopl Time, P Specimen Anatomical Collection Method Collection Time Receive d Time (Source) Location / / Volume Laterality Blood (Blood, 01/31/2021 9:44 PM 02/01/20 Venous) SQL PROGRAMMER ANALYST 10:06 PM SQL PROGRAMMER ANALYST Gerald England M.D. LAB BLOOD ADD-ON Performing Organization Address City/[facility] Phon e Number [facility] - [address] (ABNORMAL) Hemoglobin A1c (01/31/2021 9:44 PM SQL PROGRAMMER ANALYST) P athologist Signature Hemoglobin A1c, 6.1 (H) 4.0 - 5.6 01/31/2021 DTL B % 10:18 PM SQL PROGRAMMER ANALYST Comment: Hemoglobin A1c values of 5.7-6.4 percent indicate an increased risk for developing diabetes henrry skinner. In diabetic patients, HbA1c goals should be discussed with healthcare provider. Specimen Anatomical Collection Method Collection Time Receive d Time (Source) Location / / Volume Laterality Blood (Blood, 01/31/2021 9:44 PM 02/01/20 21 Venous) SQL PROGRAMMER ANALYST 10:06 PM SQL PROGRAMMER ANALYST Gerald England M.D. LAB BLOOD ADD-ON Performing Organization Address City/State/ZIP Code Phon e Number [facility] - [address] [place], [place] [address] [facility] [place] [address] [facility] [address] [facility] (ABNORMAL) CBC with Differential, Blood (01/31/2021 9:44 PM SQL PROGRAMMER ANALYST) [facility] Method Time Signature Hemoglobin 11.1 (L) 11.6 - 01/31/2021 DTL 15.0 g/dL 10:12 PM SQL PROGRAMMER ANALYST Hematocrit 34.9 (L) 35.5 - 01/31/2021 DTL 44.9 % 10:12 PM SQL PROGRAMMER ANALYST Erythrocytes 3.84 (L) 3.92 - 01/31/2021 DTL 5.13 10:12 PM SQL PROGRAMMER ANALYST x10(12)/L MCV 90.9 78.2 - 01/31/2021 DTL 97.9 fL 10:12 PM SQL PROGRAMMER ANALYST RBC Distrib Width 14.4 12.2 - 01/31/2021 DTL 16.1 % 10:12 PM SQL PROGRAMMER ANALYST Platelet Count 326 157 - 371 01/31/2021 DTL x10(9)/L 10:12 PM SQL PROGRAMMER ANALYST Leukocytes 6.8 3.4 - 9.6 01/31/2021 DTL x10(9)/L 10:12 PM SQL PROGRAMMER ANALYST Neutrophils 4.91 1.56 - 01/31/2021 DTL 6.45 10:12 PM SQL PROGRAMMER ANALYST x10(9)/L Lymphocytes 1.52 0.95 - 01/31/2021 DTL 3.07 10:12 PM SQL PROGRAMMER ANALYST x10(9)/L Monocytes 0.34 0.26 - 01/31/2021 DTL 0.81 10:12 PM SQL PROGRAMMER ANALYST x10(9)/L Eosinophils 0.03 0.03 - 01/31/2021 DTL 0.48 10:12 PM SQL PROGRAMMER ANALYST x10(9)/L Basophils 0.03 0.01 - 01/31/2021 DTL 0.08 10:12 PM SQL PROGRAMMER ANALYST x10(9)/L Specimen Anatomical Collection Method Collection Time Receive d Time (Source) Location / / Volume Laterality Blood (Blood, 01/31/2021 9:44 PM 02/01/20 21 Venous) SQL PROGRAMMER ANALYST 10:06 PM SQL PROGRAMMER ANALYST Gerald England M.D. LAB BLOOD ADD-ON Performing Organization Address City/State/ZIP Code Phon e Number [facility] - [address] [place], [place] [address] [facility] [place] [address] [facility] [address] [facility] S-TSH (Thyroid-Stimulating Hormone - Sensitive) (01/31/2021 9:44 PM SQL PROGRAMMER ANALYST) P athologist Signature TSH, Sensitive 0.3 0.3 - 4.2 01/31/2021 DTL mIU/L 10:59 PM SQL PROGRAMMER ANALYST Specimen Anatomical Collection Method Collection Time Receive d Time (Source) Location / / Volume Laterality Blood (Blood, 01/31/2021 9:44 PM 02/01/20 21 Venous) SQL PROGRAMMER ANALYST 10:06 PM SQL PROGRAMMER ANALYST Gerald England M.D. LAB BLOOD ADD-ON Performing Organization Address City/[facility]/ZIP Code Phon e Number [facility] - [address] [place], [place] [address] [facility] [place] [address] [place] [address] [address] [facility] AST (Aspartate Aminotransferase) (01/31/2021 9:44 PM SQL PROGRAMMER ANALYST) [facility] Method Time Signature Aspartate 23 8 - 43 01/31/2021 DTL Aminotransferase U/L 10:59 PM SQL PROGRAMMER ANALYST (AST), S Specimen Anatomical Collection Method Collection Time Receive d Time (Source) Location / / Volume Laterality Blood (Blood, 01/31/2021 9:44 PM 02/01/20 21 Venous) SQL PROGRAMMER ANALYST 10:06 PM SQL PROGRAMMER ANALYST Gerald England M.D. LAB BLOOD ADD-ON Performing Organization Address City/State/ZIP Code Phon e Number [facility] - [address] [place], [place] [address] [facility] [place], [place] [id number] [place] [address] [address] [facility] ALT (Alanine Aminotransferase) (01/31/2021 9:44 PM SQL PROGRAMMER ANALYST) [facility] gist Method Time Signature Alanine 15 7 - 45 01/31/2021 DTL Aminotransferase U/L 10:59 PM SQL PROGRAMMER ANALYST (ALT), S Specimen Anatomical Collection Method Collection Time Receive d Time (Source) Location / / Volume Laterality Blood (Blood, 01/31/2021 9:44 PM 02/01/20 21 Venous) SQL PROGRAMMER ANALYST 10:06 PM SQL PROGRAMMER ANALYST Gerald England M.D. LAB BLOOD ADD-ON Performing Organization Address City/State/ZIP Code Phon e Number [facility] - [address] [place], [place] [address] [facility] [place] [address] [facility] [address] [...] tablet 1,000 mg Given 02/03/2021 6:56 AM SQL PROGRAMMER ANALYST 1,000 mg (TYLENOL) 1,000 mg, oral, Every 6 hours PRN, mild pain or score 1-3 of 10, moderate pain or score 4-6 of 10, headaches, Starting on 02/01/21 at 0210 Given 02/02/2021 2:36 PM SQL PROGRAMMER ANALYST 1,000 mg Given 02/02/2021 8:53 AM SQL PROGRAMMER ANALYST 1,000 mg albuterol 90 mcg/actuation inhaler 2 puf f Given 02/03/2021 4:29 AM SQL PROGRAMMER ANALYST 2 puffs 2 puff, inhalation, Every 6 hours PRN, wheezing, shortness of breath, Starting on 02/01/21 at 1115 apixaban tablet 5 mg (ELIQUIS) Given 02/03/2021 9:30 AM SQL PROGRAMMER ANALYST 5 mg 5 mg, oral, 2 times daily, First dose on Tue02/02/21 at 2100 Given 02/02/2021 8:09 PM SQL PROGRAMMER ANALYST 5 mg aspirin tablet 325 mg Given 02/02/2021 8:11 AM SQL PROGRAMMER ANALYST 325 mg 325 mg, oral, Daily, First dose on 02/01/21 at 1030 Given 02/01/2021 10:54 AM SQL PROGRAMMER ANALYST 325 mg atorvastatin tablet 40 mg (LIPITOR) Given 02/02/2021 8:09 PM SQL PROGRAMMER ANALYST 40 mg 40 mg, oral, Daily at [...] 25 m cg Given 02/03/2021 9:29 AM SQL PROGRAMMER ANALYST 25 mcg 25 mcg, oral, Daily, First dose on 02/01/21 at 0900, cholecalciferol (vitamin D3) orderable was interchanged for cholecalciferol (vitamin D3) tablet/capsule Given 02/02/2021 8:10 AM SQL PROGRAMMER ANALYST 25 mcg Given 02/01/2021 9:11 AM SQL PROGRAMMER ANALYST 25 mcg cyanocobalamin tablet 2,000 mcg (VITAMIN Given 02/03/2021 9: 28 AM SQL PROGRAMMER ANALYST 2,000 mcg B12) 2,000 mcg, oral, Daily, First dose on 02/01/21 at 0900 Given 02/02/2021 8:08 AM SQL PROGRAMMER ANALYST 2,000 mcg Given 02/01/2021 9:11 AM SQL PROGRAMMER ANALYST 2,000 mcg diazePAM tablet 10 mg (VALIUM) Given 02/03/2021 10:51 AM SQL PROGRAMMER ANALYST 10 mg 10 mg, oral, 2 times daily PRN, anxiety, Starting on 02/01/21 at 1016 Given 02/02/2021 10:24 PM SQL PROGRAMMER ANALYST 10 mg Given 02/02/2021 8:53 AM SQL PROGRAMMER ANALYST 10 mg docusate sodium 283 mg/5 mL enema 1 enem a (ENEMEEZ) 1 enema, rectal, 2 times daily PRN, cons tipation, Starting on 01/31/21 at 2125, If no bowel movement within 24 hours of starting bisac odyl FLUoxetine capsule 80 mg (PROzac) Given 02/03/2021 9:28 AM SQL PROGRAMMER ANALYST 80 mg 80 mg, oral, Daily, First dose on 02/01/21 at 0900, FLUoxetine orderable was interchanged for FLUoxetine tablet/capsule Given 02/02/2021 8:10 AM SQL PROGRAMMER ANALYST 80 mg Given 02/01/2021 9:10 AM SQL PROGRAMMER ANALYST 80 mg folic acid tablet 800 mcg Given 02/03/2021 9:29 AM SQL PROGRAMMER ANALYST 800 mcg 800 mcg, oral, Every morning, First dose on Tue02/01/21 at 0900 Given 02/02/2021 8:14 AM SQL PROGRAMMER ANALYST 800 mcg Given 02/01/2021 10:00 AM SQL PROGRAMMER ANALYST 800 mcg furosemide tablet 40 mg (LASIX) Given 02/03/2021 9:29 AM SQL PROGRAMMER ANALYST 40 mg 40 mg, oral, 2 times daily, First dose on Tue02/02/21 at 0900 Given 02/02/2021 6:25 PM SQL PROGRAMMER ANALYST 40 mg Given 02/02/2021 8:10 AM SQL PROGRAMMER ANALYST 40 mg gadobutrol injection 0.01-30 mL (GADAVIS T) Given 02/03/2021 12:35 PM SQL PROGRAMMER ANALYST 8 mL 0.01-30 mL, intravenous, Once in imaging, contrast, Starting on Tue02/03/21 at 1235, For 1 dose, Imaging Protocol Orders, Dose per Radiant Medication Guidelines heparin (porcine) Given 02/02/2021 6:29 AM SQL PROGRAMMER ANALYST 5,000 Units Left Lower Abdomen injection 5,000 Units 5,000 Units, subcutaneous, Every 8 hours scheduled, First dose on Tue02/01/21 at 0600 Given 02/01/2021 9:17 PM SQL PROGRAMMER ANALYST 5,000 Units Right Lower Abdomen Given 02/01/2021 1:56 PM SQL PROGRAMMER ANALYST 5,000 Units Right Lower Abdomen lamoTRIgine tablet 200 mg (LaMICtal) Given 02/03/2021 9:29 AM SQL PROGRAMMER ANALYST 200 mg 200 mg, oral, 2 times daily, First dose (after last modification) on 01/31/21 at 2245 Given 02/02/2021 8:09 PM SQL PROGRAMMER ANALYST 200 mg Given 02/02/2021 8:11 AM SQL PROGRAMMER ANALYST 200 mg lidocaine 5 % 1 patch Medication Applied 01/31/2021 10:44 PM 1 patch Upper Back (LIDODERM) SQL PROGRAMMER ANALYST 1 patch, transdermal, Administer over 12 Hours, Daily, First dose on 01/31/21 at 2200, Remove after 12 hours. lidocaine 5 % ointment 1 application Given 02/02/2021 2:33 A M SQL PROGRAMMER ANALYST 1 application (XYLOCAINE) 1 application, topical, 3 times daily PRN, mild pain or score 1-3 of 10, Starting on Tue02/01/21 at 1114, MAX of 20 g of ointment/day Given 02/01/2021 5:18 PM SQL PROGRAMMER ANALYST 1 application loratadine tablet 10 mg (CLARITIN) Given 02/03/2021 9:30 AM SQL PROGRAMMER ANALYST 10 mg 10 mg, oral, Daily, First dose on Tue02/01/21 at 0900, loratadine 10 mg oral daily was interchanged for cetirizine 5 mg oral twice daily Given 02/02/2021 8:11 AM SQL PROGRAMMER ANALYST 10 mg Given 02/01/2021 9:12 AM SQL PROGRAMMER ANALYST 10 mg magnesium oxide tablet 400 mg (MAG-OX) Given 02/02/2021 8:09 PM SQL PROGRAMMER ANALYST 400 mg 400 mg, oral, Daily at bedtime, First dose on Tue02/01/21 at 2100, magnesium oxide 400 mg daily was interchanged for magnesium gluconate 500 mg daily Given 02/01/2021 9:17 PM SQL PROGRAMMER ANALYST 400 mg meclizine tablet 25 mg (ANTIVERT) Given 02/02/2021 3:01 AM SQL PROGRAMMER ANALYST 25 mg 25 mg, oral, 3 times daily PRN, dizziness, Starting on Tue02/01/21 at 0211 Given 02/01/2021 9:19 AM SQL PROGRAMMER ANALYST 25 mg meclizine tablet 25 mg (ANTIVERT) Given 02/02/2021 8:09 PM SQL PROGRAMMER ANALYST 25 mg 25 mg, oral, 4 times [...] 1 patch Left Shoulder patch (NICODERM CQ) SQL PROGRAMMER ANALYST 1 patch, transdermal, Administer over 24 Hours, Daily, First dose on Tue02/01/21 at 0900 Medication Applied 02/02/2021 8:14 AM SQL PROGRAMMER ANALYST 1 patch Right Arm Medication Applied 02/01/2021 9:13 AM SQL PROGRAMMER ANALYST 1 patch Left Shoulder nicotine 21 mg/24 hr 1 Medication Applied 02/03/2021 2:55 PM 1 patch Left Shoulder patch (NICODERM CQ) SQL PROGRAMMER ANALYST 1 patch, transdermal, Administer over 24 Hours, Daily, First dose on Tue02/03/21 at 1330 ondansetron ODT disintegrating tablet 4 mg Given 02/02/2021 10:2 4 PM SQL PROGRAMMER ANALYST 4 mg (ZOFRAN-ODT) 4 mg, oral, Every 8 hours PRN, nausea, Starting on 01/31/21 at 2228, When splitting ODT at bedside, handle with gloves and a pill splitter to prevent moisture contact. Given 02/02/2021 2:36 PM SQL PROGRAMMER ANALYST 4 mg Given 02/01/2021 1:12 AM SQL PROGRAMMER ANALYST 4 mg oxyCODONE IR tablet 10 mg (ROXICODONE) Given 02/03/2021 5:02 PM SQL PROGRAMMER ANALYST 10 mg 10 mg, oral, Every 6 hours PRN, moderate pain or score 4-6 of 10, Starting on 01/31/21 at 2229 Given 02/03/2021 2:42 AM SQL PROGRAMMER ANALYST 10 mg Given 02/02/2021 8:08 PM SQL PROGRAMMER ANALYST [address] tablet 40 mg (PROTONIX) Given 02/03/2021 4:58 PM SQL PROGRAMMER ANALYST 40 mg 40 mg, oral, 2 times daily before breakfast and dinner, First dose on 02/01/21 at 0700, pantoprazole 40 mg oral twice daily was interchanged for esomeprazole 20 or 40 mg oral twice daily Swallow whole. Do NOT crush, chew, or split tablet. Given 02/03/2021 6:56 AM SQL PROGRAMMER ANALYST 40 mg Given 02/02/2021 6:25 PM SQL PROGRAMMER ANALYST 40 mg pregabalin capsule 150 mg (LYRICA) Given 02/01/2021 9:12 AM SQL PROGRAMMER ANALYST 150 mg 150 mg, oral, Every morning, First dose on 02/01/21 at 0900 pregabalin capsule 300 mg (LYRICA) Given 01/31/2021 11:16 PM SQL PROGRAMMER ANALYST 300 mg 300 mg, oral, Every evening, First dose on 01/31/21 at 2300 pregabalin capsule 300 mg (LYRICA) Given 02/03/2021 9:28 AM SQL PROGRAMMER ANALYST 300 mg 300 mg, oral, Every morning, First dose (after last modification) on 02/02/21 at 0900 Given 02/02/2021 8:10 AM SQL PROGRAMMER ANALYST 300 mg pregabalin capsule 600 mg (LYRICA) Given 02/02/2021 8:09 PM SQL PROGRAMMER ANALYST 600 mg 600 mg, oral, Daily at bedtime, First dose (after last modification) on 02/01/21 at 2100 Given 02/01/2021 9:17 PM SQL PROGRAMMER ANALYST 600 mg promethazine injection 6.25 mg (PHENERGA N) Given 02/01/2021 12:47 PM SQL PROGRAMMER ANALYST 6.25 mg 6.25 mg, intravenous, Once, On 02/01/21 at 1030, For 1 dose QUEtiapine tablet 50 mg (SEROquel) Given 02/03/2021 12:39 AM SQL PROGRAMMER ANALYST 50 mg 50 mg, oral, Bedtime PRN, agitation/sleep, Starting on 02/01/21 at 1310 rOPINIRole tablet 2 mg (REQUIP) Given 02/03/2021 2:42 AM SQL PROGRAMMER ANALYST 2 mg 2 mg, oral, Daily PRN, restless legs, Starting on 01/31/21 at 2233 sennosides-docusate sodium 8.6-50 mg per Given 02/03/2021 9: 27 AM SQL PROGRAMMER ANALYST 2 tablets tablet 2 tablet (SENOKOT-S) 2 [...] 300 mg (ZONEGRAN) Given 02/03/2021 9:28 AM SQL PROGRAMMER ANALYST 300 mg 300 mg, oral, 2 times daily, First dose (after last modification) on 01/31/21 at 2245, Swallow whole. Do NOT crush, chew or open capsule. Given 02/02/2021 8:09 PM SQL PROGRAMMER ANALYST 300 mg Given 02/02/2021 8:53 AM SQL PROGRAMMER ANALYST 300 mg documented in this encounter Active and Recently Administered Medications Times are shown in SQL PROGRAMMER ANALYST. Scheduled Medication Order 02/01/2021 02/02/2021 02/03/2021 apixaban tablet 5 mg (ELIQUIS) 2008 (Given - Pro vider: Marlene Grover R.N.) 0298 (Given - Provider: Karma Cervantes R.N.) 5 [...] Mague Rudolph R.N.) 2008 (Given - Provider: Marlnee Grover R.N.) 400 mg, oral, Daily at [...] RBrittonNBritton) 2008 (Given - Provider: Marlene Grover RBrittonNBrittno) 600 mg, oral, Daily at bedtime, First [...] RBrittonN.) 1 application, topical, 3 times daily VA N, mild pain or score 1-3 of [...] Grover R.N.) 0242 (Given - Provider: Marlene Grvoer R.N.)1702 (Given - Provider: Sofie Sutton R.N.) [...] tablet 4 mg (ZANAFLEX) 0210 (Held by [facility] er - Provider: Marbella Cutler M.D. - [...] COVID19 Pending 01/31/2021 01/31/2021 01/31/2021 10:53 PM SQL PROGRAMMER ANALYST Assessment Noted Time PHQ-9 Depression Total Score: 23 02/02/2021 11:[address] documented as of this encounter
--- OUTSIDE RECORDS SUMMARY | 2022-11-08 14:07 | XMS_ITS | Encounter Summary ---
:1965 Author Organization [facility] Address [address] [place] [address] Care Team Providers Name Role Phone Unavailable Primary Care Provider Unavailable Reason for Visit Reason Comments Michel Encounter Details Date Type Department Care Team Description 01/26/2021 Clinical Communication Department of Robert Diehl W8B/Scharf Neurology in .[place], [place] 200 [facility] 200 [place] [phone] Social History Tobacco Use Types Packs/Day Years [...] 01/26/2021 5:19 PM CST Great thank you RINARY MILK SPECIALIST Addendum Note - Robert Diehl M.D. - 01/26/2021 2:50 PM VETERINARY MILK SPECIALIST Addended by: ROBERT DIEHL on: 01/26/2021 02:50 PM Modules accepted: Orders RINARY MILK SPECIALIST Telephone Encounter - Robert Diehl M.D. - 01/26/2021 2:49 PM CST Believe MRI is ordered now. RINARY MILK SPECIALIST Telephone Encounter - Robert Diehl M.D. - 01/26/2021 2:47 PM CST I am sorry to learn of the patient's additional symptoms Unfortunately we cannot react as quickly as the emergency department which was recommended locally I will order a brain MRI and in-person or video visit to follow-up. Thank you RINARY MILK SPECIALIST Telephone Encounter - Allyssa Amaya - 01/26/2021 12:56 PM CST Patient calls checking the status of this request. Thank you. RINARY MILK SPECIALIST documented in this encounter Plan of Treatment Not on filedocumented as of this encounter Visit Diagnoses Diagnosis Stroke Cerebrovascular Accident Personal History - Primary documented in this encounter Additional Health Concerns Assessment Noted Time PHQ-9 Depression Total Score: 5 04/05/2019 8:00 AM CDT documented as of this encounter
--- OUTSIDE RECORDS SUMMARY | 2022-11-08 14:07 | XMS_ITS | Encounter Summary ---
:1965 Author Organization [facility] Address [address] [place] [address] Care Team Providers Name Role Phone Unavailable Primary Care Provider Unavailable Encounter Details Date Type Department Care Team Description 02/03/2021 Orders Only Department of Neurology Leonides Kumar S troke ([facility]) (Primary in [facility] Lilian Dx) 200 [facility] 200 [place] [phone] Social History Tobacco Use Types Packs/Day Years [...] you attend taoist or Patient refused 2021 anglican services? Do [...]
--- OUTSIDE RECORDS SUMMARY | 2022-11-08 14:07 | XMS_ITS | Encounter Summary ---
:1965 Author Organization [facility] Address [address] [place] [address] Care Team Providers Name Role Phone Unavailable Primary Care Provider Unavailable Encounter Details Date Type Department Care Team Description 01/12/2021 Anticoagulation Visit Department of Neurology Zuly Alex, in [facility] R.N. 1216 [facility] [address] [place] [phone] Social History Tobacco Use Types Packs/Day Years [...] you attend confucianist or Patient refused 2021 episcopal services? Do [...] Target INR 2.0-3.[address] Argenis Diehl ([id number]). The patient was scheduled for an INR recheck on 01/09/21, however did not have an INR draw until late that afternoon. The results did not become available until after clinic hours. Patient's INR on 01/09/21 was 2.[address]. Discuss[address] with Dr. Argenis Diehl ([id number]) who advises that the patient follow a [...] OF PHONE CALL. Test results, symptom assessment. GORY ANALYST documented in this encounter Plan of Treatment Not on filedocumented as of this encounter Procedures Procedure Name Priority Date/Time Associated Diagnosis Comme nts PROTHROMBIN TIME (PT), Routine 01/09/2021 Resul ts for this P procedure are i n the results section . documented in this encounter Results Prothrombin Time (PT) (01/09/2021) P athologist Signature EXT INR 2.40 OTHER (SPECIFY IN PURCHASING DEPARTMENT CLERK) Specimen (Source) Anatomical Location Collection Method / Collectio n Time Received Time / Laterality Volume Blood (Blood, 01/09/2021 Venous) Narrative This result has an attachment that is no t available. Historical Provider LAB BLOOD ADD-ON Performing Organization Address City/State/ZIP Code Phon e Number OTHER (SPECIFY IN PURCHASING DEPARTMENT CLERK) OTHER (SPECIFY IN PURCHASING DEPARTMENT CLERK) N/A documented in this encounter Visit Diagnoses Not on filedocumented in this encounter Additional Health Concerns Assessment Noted Time PHQ-9 Depression Total Score: 5 04/05/2019 8:00 AM CDT documented as of this encounter
--- OUTSIDE RECORDS SUMMARY | 2022-11-08 14:07 | XMS_ITS | Encounter Summary ---
:1965 Author Organization [facility] Address 200 [place] [address] Care Team Providers Name Role Phone Unavailable Primary Care Provider Unavailable Reason for Visit Outpatient (Routine) - Closed Specialty Diagnoses / Procedures Referred By Contact Refer red To Contact Video Medicine Diagnoses Stroke Cerebrovascular Accident Personal History Robert Diehl [place] M.D. [address] [place] [address] Referral ID Status Reason Start Date Expiration Date Visits Requ ested Visits Authorized [id number] Closed 12/30/2020 12/30/2021 1 1 Encounter Details Date Type Department Care Team Description 02/02/2021 Virtual Visit Department of Robert Diehl Stroke Cere brovascular Neurology jimmy Celaya M.D. Accident Personal [place], [place] 200 [facility] History 200 [place] [phone] Social History Tobacco Use Types Packs/Day Years [...] you attend sikhism or Patient refused 2021 alevism services? Do you belong to any clubs or No 05/17/2022 organizations such as sikhism groups, unions, fraUbiregi or athletic groups, or school groups? How [...] department over the weekend was transferred to [facility] service where she is currently admitted. Therefore she will not be present for today's 8:00 a.m. Outpatient consultation. Highly appreciative of the [facility] Stroke Service cares. No charge. Electronically signed by: Robert Diehl M.D. 02/02/21 7:46 AM LAST INSERTER INSERTER documented in this encounter Plan of Treatment Not on filedocumented as of this encounter Visit Diagnoses Diagnosis Stroke Cerebrovascular Accident Personal History documented in this encounter Additional Health Concerns Assessment Noted Time PHQ-9 Depression Total Score: 23 02/02/2021 11:[address] documented as of this encounter
--- OUTSIDE RECORDS SUMMARY | 2022-11-08 14:07 | XMS_ITS | Encounter Summary ---
:1965 Author Organization [facility] Address [address] [place] [address] Care Team Providers Name Role Phone Unavailable Primary Care Provider Unavailable Encounter Details Date Type Department Care Team Description 01/05/2021 Anticoagulation Visit Department of Neurology Elvira Villalta, in [facility] R.N. 1216 [facility] [address] [place] [phone] Social History Tobacco Use Types Packs/Day Years [...] an INR at her outside clinic in [place], [place] today and I called the lab [phone] and was told she did not report [...] advised for today, she report to the [place] lab as scheduled. Ms. Mosquera states she will do that. RECOMMENDED LEVEL OF CARE. The patient/caller is willing and able to follow the nurse's recommendation. RESPONSE TO ADVICE GIVEN. Patient/caller able to teach back. REFERENCES UTILIZED. Nursing clinical judgment utilized. Other interventions or information: Provider advice. TYPE OF PHONE CALL. INR management R SECOND Elvira Villalta R.N. - 01/05/2021 4:06 PM CST Patient's INR today is 1.47. Discussed with Dr. Neri Acevedo ([phone]) who advises that the patient take 7.5 [...] OF PHONE CALL. Test results, symptom assessment. R SECOND documented in this encounter Plan of Treatment Not on filedocumented as of this encounter Procedures Procedure Name Priority Date/Time Associated Comments Diagnosis PROTHROMBIN TIME Routine 01/05/2021 3:15 PM Resul ts for this (PT), P BAKER SECOND procedure are i n the results section. documented in this encounter Results Prothrombin Time (PT) (01/05/2021 3:15 PM BAKER SECOND) P athologist Signature EXT INR 1.47 OTHER (SPECIFY IN DEICER REPAIRER PNEUMATIC) Specimen (Source) Anatomical Collection Method Collection Time Re ceived Time Location / / Volume Laterality Blood (Blood, 01/05/2021 3:15 PM Venous) BAKER SECOND Narrative This result has an attachment that is no t available. Resulting Agency Comment [facility] Historical Provider LAB BLOOD ADD-ON Performing Organization Address City/State/ZIP Code Phon e Number OTHER (SPECIFY IN DEICER REPAIRER PNEUMATIC) OTHER (SPECIFY IN DEICER REPAIRER PNEUMATIC) N/A documented in this encounter Visit Diagnoses Not on filedocumented in this encounter Additional Health Concerns Assessment Noted Time PHQ-9 Depression Total Score: 5 04/05/2019 8:00 AM CDT documented as of this encounter
--- OUTSIDE RECORDS SUMMARY | 2022-11-08 14:07 | XMS_ITS | Encounter Summary ---
:1965 Author Organization [facility] Address [address] [place] [address] Care Team Providers Name Role Phone Unavailable Primary Care Provider Unavailable Encounter Details Date Type Department Care Team Description 01/07/2021 Anticoagulation Visit Department of Neurology Zuly Alex, in [facility] R.N. 1216 [facility] [address] [place] [phone] Social History Tobacco Use Types Packs/Day Years [...] you attend yarsanism or Patient refused 2021 bahai services? Do [...] is 2.28. Discussed with Dr. Ashley Castrejon ([phone]) who advises that the patient take 5 [...] PHONE CALL. Test results, symptom assessment. LY CENTERED SPECIALIST documented in this encounter Plan of Treatment Not on filedocumented as of this encounter Procedures Procedure Name Priority Date/Time Associated Diagnosis Comme nts PROTHROMBIN TIME (PT), Routine 01/07/2021 Resul ts for this P procedure are i n the results section . documented in this encounter Results Prothrombin Time (PT) (01/07/2021) P athologist Signature EXT INR 2.28 OTHER (SPECIFY IN REFRIGERATION UNIT REPAIRER) Specimen (Source) Anatomical Location Collection Method / Collectio n Time Received Time / Laterality Volume Blood (Blood, 01/07/2021 Venous) Narrative This result has an attachment that is no t available. Historical Provider LAB BLOOD ADD-ON Performing Organization Address City/State/ZIP Code Phon e Number OTHER (SPECIFY IN REFRIGERATION UNIT REPAIRER) OTHER (SPECIFY IN REFRIGERATION UNIT REPAIRER) N/A documented in this encounter Visit Diagnoses Not on filedocumented in this encounter Additional Health Concerns Assessment Noted Time PHQ-9 Depression Total Score: 5 04/05/2019 8:00 AM CDT documented as of this encounter
--- OUTSIDE RECORDS SUMMARY | 2022-11-08 14:07 | XMS_ITS | Encounter Summary ---
:1965 Author Organization [facility] Address [address] [place] [address] Care Team Providers Name Role Phone Unavailable Primary Care Provider Unavailable Reason for Visit Reason Comments Initiate warfarin anticoagulation. Encounter Details Date Type Department Care Team Description 01/01/2021 Clinical Communication Department of Renny Mahoney warfarin Neurology in [place] anticoagulation. [place], [address] [place] [address] [place] [address] [place], [place] [phone] (Work) [phone] Social History Tobacco Use Types Packs/Day Years [...] PM CST RADHA Thompson, calls in from [facility] with INR results = 3.9. Please call her back at [phone] RVISOR MOLDING Telephone Encounter - Renny Mahoney R.N. - 01/05/2021 1:56 PM CST Mackenzie talked to her, she needs to go to the lab today. RVISOR MOLDING Telephone Encounter - Allyssa Amaya - 01/05/2021 11:14 AM CST Patient calls in regarding this. She is wanting this set up now so a nurse can come into her home and do this. She I believed mentions that a nurse comes into her home now. She would like a call to discuss. RVISOR MOLDING Telephone Encounter - Robert Diehl M.D. - 01/01/2021 4:46 PM CST Absolutely and thank you very much for coordinating this RVISOR MOLDING Addendum Note - Renny Mahoney R.N. - 01/01/2021 1:03 PM SUPERVISOR MOLDING Addended by: RENYN MAHONEY on: 01/01/2021 01:03 PM Modules accepted: Orders RVISOR MOLDING Telephone Encounter - Renny Mahoney R.N. - 01/01/2021 12:45 PM CST I spoke to the patient by telephone today to discuss reinitiating warfarin. The patient referred by Dr. Argenis Diehl ([phone]). The patient's target INR is 2.0-3.0. The [...] like to have her INRs drawn at [facility] with results faxed to [facility]. I spoke with her local primary care physician nurse about this as well. Once Dr. Diehl obtains imaging in about 3 months, we may consider transitioning her anticoagulation care to her local [facility]. The patient will take 5 mg warfarin nightly starting tonight 01/01/21, then have an INR drawn 01/05/21 at [facility] with results faxed to us. A prescription for warfarin 5 mg #30, take as directed, may refill X 1 was eprescribed to [facility]. The patient reported an adequate understanding of her plan of care and expressed agreement with thisplan. RECOMMENDED LEVEL OF CARE. The patient/caller is willing and able to follow the nurse's recommendation. RESPONSE TO ADVICE GIVEN. Patient/caller able to teach back. REFERENCES UTILIZED. Nursing clinical judgment utilized. Other interventions or information: Provider advice. TYPE OF PHONE CALL. Medical information, care coordination. . RVISOR MOLDING Addendum Note - Renny Mahoney R.N. - 01/01/2021 9:43 AM SUPERVISOR MOLDING Addended by: RENNY MAHONEY on: 01/01/2021 09:43 AM Modules accepted: Orders RVISOR MOLDING Telephone Encounter - Renny Mahoney R.N. - 01/01/2021 9:32 AM CST I have spoken with the pharmacist at [facility] in [place]. He notes that in 2018 when thepatient previously was treated with warfarin, she was taking 5 mg nightly for a period of time. Eventually some nights she was taking 7.5 mg nightly. The pharmacist reviewed potential medication interactions with the patient's current medication list. No serious interactions anticipated. As per Dr. Yeboah ([phone]), we will initiate 5 mg nightly. She will continue aspirin until therapeutic INR is reached. RVISOR MOLDING Telephone Encounter - Renny Mahoney R.N. - 01/01/2021 8:47 AM CST The patient has been experiencing episodes of vertigo, gait instability, with a fall, she was seen in the ED of [facility] on 12/22/20. Head CT was performed and sent to [facility] for Dr. Diehl's review. He noted possible [...] the patient's primary care team at the [facility]. I have discussed this with the patient who reports an ad equate understanding and agreement with this plan. RECOMMENDED LEVEL OF CARE. The patient/caller is willing and able to follow the nurse's recommendation. RESPONSE TO ADVICE GIVEN. Patient/caller able to teach back. REFERENCES UTILIZED. Nursing clinical judgment utilized. Other interventions or information: Provider advice. TYPE OF PHONE CALL. Care coordination. RVISOR MOLDING Telephone Encounter - Renny Mahoney R.N. - 01/01/2021 8:46 AM CST ----- Message from Robert Diehl M.D. sent at 12/31/2020 5:17 PM SUPERVISOR MOLDING ----- I called and discussed the results [...] by: Robert Diehl M.D. 12/31/20 5:16 PM SUPERVISOR MOLDING Stroke Cerebrovascular Accident Personal History Plan: CT Head without IV Contrast, CT Head without IV Contrast Ataxia Plan: CT Head Neck Angiogram with IV Contrast, CT Head Neck Angiogram with IV Contrast RVISOR MOLDING documented in this encounter Plan of Treatment Scheduled Orders Name Type Priority Associated Diagnoses Order S chedule Prothrombin Time (PT) Lab Routine State Federal Relations Deputy Director Anticoagu lant 50 Occurrences starting Treatment 01/01/2021 unti l 01/01/2024 documented as of this encounter Visit Diagnoses Diagnosis State Federal Relations Deputy Director (Current) Anticoagulant Treatm ent - Primary documented in this encounter Additional Health Concerns Assessment Noted Time PHQ-9 Depression Total Score: 5 04/05/2019 8:00 AM CDT documented as of this encounter
--- OUTSIDE RECORDS SUMMARY | 2022-11-08 14:07 | XMS_ITS | Encounter Summary ---
:1965 Author Organization [facility] Address [address] [place] [address] Care Team Providers Name Role Phone Unavailable Primary Care Provider Unavailable Reason for Visit Reason Comments Pre-visit Intake Encounter Details Date Type Department Care Team Description 01/29/2021 Clinical Communication Department of Robert Diehl e-visit Intake Neurology in [place] Celaya [place], [facility] [place], [place] [address] [place] [address] [place], [place] [phone] (Work) [phone] Social History Tobacco Use Types Packs/Day Years [...] you attend sikh or Patient refused 2021 anabaptist services? Do [...]
--- OUTSIDE RECORDS SUMMARY | 2022-11-08 14:07 | XMS_ITS | Encounter Summary ---
:1965 Author Organization [facility] Address [address] [place] [address] Care Team Providers Name Role Phone Unavailable Primary Care Provider Unavailable Encounter Details Date Type Department Care Team Description 02/02/2021 Orders Only Department of Neurology in Bisi Acevedo D.O. [place], [place] [address] [place] [address] 200 [place] [phone] (Wo rk) Social History Tobacco Use Types [...] you attend yazidism or Patient refused 2021 islam services? Do [...]
--- OUTSIDE RECORDS SUMMARY | 2022-11-08 14:07 | XMS_ITS | Encounter Summary ---
:1965 Author Organization [facility] Address [address] [place] [address] Care Team Providers Name Role Phone Unavailable Primary Care Provider Unavailable Reason for Visit Reason Onset Date Comments saul med request 02/03/2021 Encounter Details Date Type Department Care Team Description 02/03/2021 Clinical Communication Department of [facility], trinidad Mccarthy med request Nicotine Dependence, M.S., C.T.T.S., [facility] in [place], [address] [place] [address] [place] [phone] [place], [place] [phone] (Work) [phone] Social History Tobacco Use Types Packs/Day Years [...] you attend bahai or Patient refused 2021 taoism services? Do [...] 02/03/2021 10:16 AM CST Please send to [id number] in [facility] [place] [facility] 21 mg patches with refills Nicotrol inhaler with refills Nicotine nasal spray with refills Y DUTY CUSTODIAN documented in this encounter Plan of Treatment Not on filedocumented as of this encounter Visit Diagnoses Not on filedocumented in this encounter Additional Health Concerns Assessment Noted Time PHQ-9 Depression Total Score: 23 02/02/2021 11:[address] documented as of this encounter
--- OUTSIDE RECORDS SUMMARY | 2022-11-08 14:07 | XMS_ITS | Encounter Summary ---
:1965 Author Organization [facility] Address [address] [place] [address] Care Team Providers Name Role Phone Unavailable Primary Care Provider Unavailable Encounter Details Date Type Department Care Team Description 01/20/2021 Anticoagulation Visit Department of Neurology Elvira Villalta, in [facility] R.N. 1216 [facility] [address] [place] [phone] Social History Tobacco Use Types Packs/Day Years [...] you attend taoist or Patient refused 2021 temple services? Do [...] Transfer of anticoagulation management back to PCP. OGICAL ENGINEERING TEACHER documented in this encounter Plan of Treatment Not on filedocumented as of this encounter Visit Diagnoses Not on filedocumented in this encounter Additional Health Concerns Assessment Noted Time PHQ-9 Depression Total Score: 5 04/05/2019 8:00 AM CDT documented as of this encounter
--- OUTSIDE RECORDS SUMMARY | 2022-11-08 14:07 | XMS_ITS | Encounter Summary ---
:1965 Author Organization [facility] Address [address] [place] [address] Care Team Providers Name Role Phone Unavailable Primary Care Provider Unavailable Encounter Details Date Type Department Care Team Description 01/20/2021 Clinical Communication Department of Elvira Villalta, Neurology in [place], [place] [address] [place] [address] [address] [place] [phone] Social History Tobacco Use Types Packs/Day Years [...]
--- OUTSIDE RECORDS SUMMARY | 2022-11-08 14:07 | XMS_ITS | Encounter Summary ---
:1965 Author Organization [facility] Address [address] [place] [address] Care Team Providers Name Role Phone Unavailable Primary Care Provider Unavailable Reason for Referral MRI/CAT/PET Scan (Routine) - Closed Specialty Diagnoses / Procedures Referred By Contact Refer red To Contact Radiology Diagnoses Ataxia Robert Diehl M.D. [facility] Procedures CT Head Neck Angiogram with IV Contrast [address] [place] [address] Referral ID Status Reason Start Date Expiration Date Visits Requ ested Visits Authorized [id number] Closed 12/31/2020 12/31/2021 1 1 COMMUNICATIONS ANALYST Reason for Visit MRI/CAT/PET Scan (Routine) - Closed Specialty Diagnoses / Procedures Referred By Contact Refer red To Contact Radiology Diagnoses Ataxia Robert Diehl M.D. [facility] Procedures CT Head Neck Angiogram with IV Contrast [address] [place], [place] [address] Referral ID Status Reason Start Date Expiration Date Visits Requ ested Visits Authorized [id number] Closed 12/31/2020 12/31/2021 1 1 Encounter Details Date Type Department Care Team Description 01/30/2021 Hospital Encounter Department of Radiology, Akhil Diehl Ataxia [facility], in M.D. [place], [place] [address] [facility] [address] [place] [phone] (Wo rk) Social History Tobacco Use Types [...] you attend christianity or Patient refused 2021 temple services? Do [...] this ANGIOGRAM WITH IV (most inpatients PM TELECOMMUNICATIONS ANALYST proced ure are in CONTRAST and all the results outpatients) section. documented in this encounter Results CT Head Neck Angiogram with IV Contrast (01/30/2021 3:24 PM TELECOMMUNICATIONS ANALYST) Anatomical Region Laterality Modality Head and Neck, Neuroradiology RST LOS, N/A C omputed Tomography, Computed Neuroradiology ARZ LOS, Neuroradiology T omography FLA [facility] Specimen (Source) Anatomical Collection Method Collection Time Re ceived Time Location / / Volume Laterality 01/30/2021 2:25 PM TELECOMMUNICATIONS ANALYST Impressions 01/30/2021 3:18 PM TELECOMMUNICATIONS ANALYST 1. 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 Slightly decreased high-grade stenosis a t the V3/4 junction with increased flow in the distal V4 segment. 2. Evolving, now chronic right cerebella r infarct. 3. 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 Narrative 01/30/2021 3:18 PM TELECOMMUNICATIONS ANALYST EXAM: CT HEAD NECK ANGIOGRAM WITH IV [...] caliber bilater al MCAs, ACAs and health plan advisor. Patent anterior and right posterior communicating arteri [...] caliber bilater al MCAs, ACAs and health plan advisor. Patent anterior and right posterior communicating arteri [...] mg iodine/mL solution Given 01/30/2021 2:29 PM TELECOMMUNICATIONS ANALYST 1 00 mL 1-200 mL (OMNIPAQUE) 1-200 mL, intravenous, Once in imaging, contrast, Starting on Tue01/30/21 at 1355, For 1 dose, Imaging Protocol Orders, Dose per Radiant Medication Guidelines sodium chloride (PF) 0.9 % injection 1-1 00 mL Given 01/30/2021 2:29 PM TELECOMMUNICATIONS ANALYST 35 mL 1-100 mL, intravenous, Once, On Tue01/30/21 at 1400, For 1 dose, Imaging Protocol Orders documented in this encounter Additional Health Concerns Assessment Noted Time PHQ-9 Depression Total Score: 5 04/05/2019 8:00 AM CDT documented as of this encounter
--- OUTSIDE RECORDS SUMMARY | 2022-11-08 14:08 | XMS_ITS | Encounter Summary ---
:1965 Author Organization [facility] Address [address] [place] [address] Care Team Providers Name Role Phone Unavailable Primary Care Provider Unavailable Reason for Referral MRI/CAT/PET Scan (Routine) - Closed Specialty Diagnoses / Procedures Referred By Contact Refer red To Contact Radiology Diagnoses Ataxia Robert Diehl M.D. [facility] Procedures CT Head Neck Angiogram with IV Contrast [address] [place] [address] Referral ID Status Reason Start Date Expiration Date Visits Requ ested Visits Authorized [id number] Closed 12/30/2020 12/30/2021 1 1 VIOR MANAGEMENT SPECIALIST MRI/CAT/PET Scan (Routine) - Closed Specialty Diagnoses / Procedures Referred By Contact Refer red To Contact Radiology Diagnoses Stroke Cerebrovascular Accident Personal History Robert Diehl M.D. [facility] Procedures CT Head without IV Contrast [address] [place] [address] Referral ID Status Reason Start Date Expiration Date Visits Requ ested Visits Authorized [id number] Closed 12/30/2020 12/30/2021 1 1 VIOR MANAGEMENT SPECIALIST Reason for Visit MRI/CAT/PET Scan (Routine) - Closed Specialty Diagnoses / Procedures Referred By Contact Refer red To Contact Radiology Diagnoses Ataxia Robert Diehl M.D. [facility] Procedures CT Head Neck Angiogram with IV Contrast [address] [place] [address] Referral ID Status Reason Start Date Expiration Date Visits Requ ested Visits Authorized [id number] Closed 12/30/2020 12/30/2021 1 1 Encounter Details Date Type Department Care Team Description 12/31/2020 Hospital Encounter Department of Robert Diehl Stroke Cerebrovascular Accident Personal History; Radiology, Severiano Celaya M.D. [facility], in [address] [facility] [address] [address] [facility] [phone] [place], [place] (Work) [phone] Social History Tobacco Use Types Packs/Day Years [...] you attend taoist or Patient refused 2021 mosque services? Do [...] Robert Diehl M.D. - 12/31/2020 5:17 PM BEHAVIOR MANAGEMENT SPECIALIST I called and discussed the results [...] by: Robert Diehl M.D. 12/31/20 5:16 PM BEHAVIOR MANAGEMENT SPECIALIST Stroke Cerebrovascular Accident Personal History Plan: CT Head without IV Contrast, CT Head without IV Contrast Ataxia Plan: CT Head Neck Angiogram with IV Contrast, CT Head Neck Angiogram with IV Contrast VIOR MANAGEMENT SPECIALIST documented in this encounter Plan of Treatment Not on filedocumented as of this encounter Procedures Procedure Name Priority Date/Time Associated Diagnosis Comme nts CT HEAD WITHOUT RAD - Routine 12/31/2020 3:34 Stroke Results for IV CONTRAST (most inpatients PM BEHAVIOR MANAGEMENT SPECIALIST Cerebrovascular this pro cedure and all Accident Personal are in the outpatients) History results section. CT HEAD NECK RAD - Routine 12/31/2020 3:34 Ataxia Results for ANGIOGRAM WITH (most inpatients PM BEHAVIOR MANAGEMENT SPECIALIST this proc edure IV CONTRAST and all are in the outpatients) results section. documented in this encounter Results CT Head Neck Angiogram with IV Contrast (12/31/2020 3:34 PM BEHAVIOR MANAGEMENT SPECIALIST) Anatomical Region Laterality Modality Head and Neck, Neuroradiology RST LOS, N/A C omputed Tomography, Computed Neuroradiology ARZ LOS, Neuroradiology T omography FLA [facility] Specimen (Source) Anatomical Collection Method Collection Time Re ceived Time Location / / Volume Laterality 12/31/2020 3:49 PM BEHAVIOR MANAGEMENT SPECIALIST Impressions 12/31/2020 4:54 PM BEHAVIOR MANAGEMENT SPECIALIST 1. Evolving right cerebellar infarct with [...] oid ICA aneurysms. Narrative 12/31/2020 4:54 PM BEHAVIOR MANAGEMENT SPECIALIST EXAM: CT HEAD WITHOUT IV CONTRAST, [...] discussed with ordering physici Dr. Fazal abbasi ([id number]) at 4:54 PM on 12/31/2020. Procedure Note [...] discussed with ordering physici Dr. Fazal abbasi ([id number]) at 4:54 PM on 12/31/2020. IMPRESSION: 1. [...] Head without IV Contrast (12/31/2020 3:34 PM BEHAVIOR MANAGEMENT SPECIALIST) Anatomical Region Laterality Modality Head, Neuroradiology RST LOS, N/A Computed T omography, Computed Neuroradiology ARZ LOS, Neuroradiology T omography FLA LOS Specimen (Source) Anatomical Collection Method Collection Time Re ceived Time Location / / Volume Laterality 12/31/2020 3:49 PM BEHAVIOR MANAGEMENT SPECIALIST Impressions 12/31/2020 4:54 PM BEHAVIOR MANAGEMENT SPECIALIST 1. Evolving right cerebellar infarct with [...] oid ICA aneurysms. Narrative 12/31/2020 4:54 PM BEHAVIOR MANAGEMENT SPECIALIST EXAM: CT HEAD WITHOUT IV CONTRAST, [...] Findings discussed with ordering physicDr. Fazal crandall ([id number]) at 4:54 PM on 12/31/2020. Procedure Note [...] Findings discussed with ordering physici anDr. Diehl ([id number]) at 4:54 PM on 12/31/2020. IMPRESSION: 1. [...] mg iodine/mL solution Given 12/31/2020 3:34 PM BEHAVIOR MANAGEMENT SPECIALIST 1 00 mL 1-200 mL (OMNIPAQUE) 1-200 mL, intravenous, Once in imaging, contrast, Starting on Tue12/31/20 at 1411, For 1 dose, Imaging Protocol Orders, Dose per Radiant Medication Guidelines sodium chloride (PF) 0.9 % injection 1-1 00 mL Given 12/31/2020 3:34 PM BEHAVIOR MANAGEMENT SPECIALIST 35 mL 1-100 mL, intravenous, Once, On Tue12/31/20 at 1415, For 1 dose, Imaging Protocol Orders documented in this encounter Additional Health Concerns Assessment Noted Time PHQ-9 Depression Total Score: 5 04/05/2019 8:00 AM CDT documented as of this encounter
--- OUTSIDE RECORDS SUMMARY | 2022-11-08 14:08 | XMS_ITS | Encounter Summary ---
:1965 Author Organization [facility] Address [address] [place] [address] Care Team Providers Name Role Phone Unavailable Primary Care Provider Unavailable Encounter Details Date Type Department Care Team Description 08/05/2020 Clinical Communication Department of Honorio, Otorhinolaryngology in [place]ole [place], [place] [address] [place], [place] [address] [facility] [phone] [place] [phone] Social History Tobacco Use Types Packs/Day Years [...] you attend orthodoxy or Patient refused 2021 zoroastrian services? Do [...] called patient to schedule COVID testing at [facility] prior to appointment. Didn't answer so jessica [...]
--- OUTSIDE RECORDS SUMMARY | 2022-11-08 14:08 | XMS_ITS | Encounter Summary ---
:1965 Author Organization [facility] Address [address] [place] [address] Care Team Providers Name Role Phone Unavailable Primary Care Provider Unavailable Reason for Visit Reason Comments shyam Encounter Details Date Type Department Care Team Description 07/29/2020 Clinical Communication Department of Robert Diehl w8b/[id number] Neurology in .. [place], [place] [address] [place] [address] 200 [place] [address] [phone] Social History Tobacco Use Types Packs/Day Years [...] you attend religious or Patient refused 2021 druze services? Do [...] for magnetic resonance angiogram be sent to [place]. José Miguel advise what the exact testing [...]
--- OUTSIDE RECORDS SUMMARY | 2022-11-08 14:08 | XMS_ITS | Encounter Summary ---
:1965 Author Organization [facility] Address [address] [place] [address] Care Team Providers Name Role Phone Unavailable [...] you attend synagogue or Patient refused 2021 mandaen services? Do [...] 01/08/2020 3:15 Results for this EXAM PM APARTMENT MAINTENANCE procedure are i n the results section. documented in this encounter Results NOSE-Otorhinolaryngology Image Exam (01/08/2020 3:15 PM APARTMENT MAINTENANCE) Specimen (Source) Anatomical Collection Method Collection Time Re ceived Time Location / / Volume Laterality 01/08/2020 3:11 PM APARTMENT MAINTENANCE Narrative [facility] - 01/08/2020 3:29 PM APARTMENT MAINTENANCE This order has been created and auto-finalized [...]
--- OUTSIDE RECORDS SUMMARY | 2022-11-08 14:08 | XMS_ITS | Encounter Summary ---
:1965 Author Organization [facility] Address [address] [place] [address] Care Team Providers Name Role Phone Unavailable [...] you attend scientologist or Patient refused 2021 buddhism services? Do [...] 12/18/2019 1:57 Results for this EXAM PM CATERING SOUS CHEF procedure are i n the results section. documented in this encounter Results NOSE-Otorhinolaryngology Image Exam (12/18/2019 1:57 PM CATERING SOUS CHEF) Specimen (Source) Anatomical Collection Method Collection Time Re ceived Time Location / / Volume Laterality 12/18/2019 1:57 PM CATERING SOUS CHEF Narrative [facility] - 12/18/2019 1:57 PM CATERING SOUS CHEF This order has been created and auto-finalized [...]
--- OUTSIDE RECORDS SUMMARY | 2022-11-08 14:08 | XMS_ITS | Encounter Summary ---
:1965 Author Organization [facility] Address [address] [place] [address] Care Team Providers Name Role Phone Unavailable Primary Care Provider Unavailable Reason for Visit Reason Comments Follow-up [facility] Patient Encounter Details Date Type Department Care Team Description 12/29/2020 Clinical [facility] Neurology jimmy Celaya M.D. Patient) [place], [facility] [place], [place] [address] [place] [address] [place], [place] [phone] (Work) [phone] Social History Tobacco Use Types Packs/Day Years [...] you attend sikh or Patient refused 2021 scientology services? Do [...] her know PCP needs to prescribe meclizine. FIC CONTROLLER CABLE Telephone Encounter - Allyssa Amaya - 12/29/2020 [...] ambulance for; one of which lasted over wqt-ath-s-half days. She is having headaches, etc. 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
--- OUTSIDE RECORDS SUMMARY | 2022-11-08 14:08 | XMS_ITS | Encounter Summary ---
:1965 Author Organization [facility] Address [address] [place] [address] Care Team Providers Name Role Phone Unavailable Primary Care Provider Unavailable Encounter Details Date Type Department Care Team Description 12/07/2019 Anesthesia Event RST ROMB MAIN OR Leonides Walker, [address] [facility] [place] [address] [address] [place] [address] [place] [phone] (Wo rk) Anesthesia Record Procedure Summary Procedure [...] h andoff to the receiving staff during [facility] we 1. Identified the patient [...] Simin valentine, Jey García, (created via procedure CHAIN PEGGER, PRINTING MACHINE MECHANIC CHAIN PEGGER, CRN A documentation); Mask Ventilation: Easy mask; [...] attend oriental orthodox or Patient refused 2021 adventist services? Do you belong to any clubs or No 05/17/2022 organizations such as oriental orthodox groups, unions, [employer] or athletic groups, or school groups? [...] Procedure Summary Date: 12/07/19 Room / Location: [address] [facility] in [place], [place] Anesthesia Start: 1234 Anesthesia Stop: 1434 [...] Promethazine; otherwise, uneventful recovery with outpt dispo. OW MACHINE OPERATOR Anesthesia Procedure Notes - Gini [...] Procedure outcome: successful Airway event: no complications OW MACHINE OPERATOR Anesthesia Preprocedure Evaluation - Leonides Walker M.D. - 12/07/2019 11:59 AM CST Preprocedure Anesthesia & H&P Assessment Procedure Summary Date/Time: 12/07/19 1119 Procedures: SINUSOTOMY ENDOSCOPY FRONTAL. (Bilateral Nose) EXTRADURAL COMPUTER NAVIGATION. 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 Location: [address] [facility] in [place], [place] Provider: Darlin Olmedo M.D. Pertinent components [...] #11 Patent Foramen Ovale (HCC) Noted on [id number]/ ECHO otherwise normal. I will not pursue [...] with patient /legal guardian or through an historic interpreter. The use of blood products not discussed Approval to Proceed: approved for anesthesia OW MACHINE OPERATOR documented in this encounter Plan of Treatment Not on filedocumented as of this encounter Procedures Procedure Name Priority Date/Time Associated Comments Diagnosis LDA ANE ENDOTRACHEAL Routine 12/07/2019 12:47 Res ults for this AIRWAY PM WINDOW MACHINE OPERATOR procedure are i n the results section. documented in this encounter Results LDA ANE ENDOTRACHEAL AIRWAY (12/07/2019 12:47 PM WINDOW MACHINE OPERATOR) Narrative Gini Garcia APRN, CRNA - 2019 12:47 PM WINDOW MACHINE OPERATOR Gini Garcia APRN, CRNA ? [...] dexamethasone injection (DECADRON) Given 12/07/2019 12:43 PM WINDOW MACHINE OPERATOR 4 mg As needed, Starting on Tue12/07/19 at 1243, Anesthesia Intra-op ePHEDrine (PF) injection Given 12/07/2019 12:48 PM WINDOW MACHINE OPERATOR 5 mg intravenous, As needed, Starting on Tue12/07/19 at 1242, Anesthesia Intra-op Given 12/07/2019 12:42 PM WINDOW MACHINE OPERATOR 25 mg fentaNYL injection 25 mcg (SUBLIMAZE) Given 12/07/2019 2:32 PM WINDOW MACHINE OPERATOR 25 mcg 25 mcg, intravenous, Every 2 min PRN, For pain 4 or greater (maximum 100 mcg). If max dose of Fentanyl is reached and if pain is greater than 4, discontinue Fentanyl: give Hydromorphone, Starting on Tue12/07/19 at 1145, Pre-Op lactated ringers New Bag 12/07/2019 12:39 PM WINDOW MACHINE OPERATOR intravenous, Continuous Infusion: Per Instructions PRN, Starting on Tue12/07/19 at 1239, Anesthesia Intra-op lidocaine (PF) (cardiac) injection Given 12/07/2019 12:40 PM WINDOW MACHINE OPERATOR 100 mg intravenous, As needed, Starting on Tue12/07/19 at 1240, Anesthesia Intra-op ondansetron (PF) injection (ZOFRAN) Given 12/07/2019 1:57 PM WINDOW MACHINE OPERATOR 4 mg intravenous, As needed, Starting on Tue12/07/19 at 1357, Anesthesia Intra-op phenylephrine injection Given 12/07/2019 12:50 PM WINDOW MACHINE OPERATOR 100 mcg intravenous, As needed, Starting on Tue12/07/19 at 1246, Anesthesia Intra-op Given 12/07/2019 12:48 PM WINDOW MACHINE OPERATOR 100 mcg Given 12/07/2019 12:46 PM WINDOW MACHINE OPERATOR 100 mcg propofol 10 mg/mL infusion Rate/Dose 12/07/2019 75 mcg/kg/min 34.4 m L/hr (DIPRIVAN) Change 12:46 PM WINDOW MACHINE OPERATOR intravenous, Continuous Infusion: Per Instructions PRN, Starting on Tue12/07/19 at 1241, Anesthesia Intra-op New Bag 12/07/2019 12:41 PM WINDOW MACHINE OPERATOR 250 mcg/kg/min 115 mL/hr propofol injection (DIPRIVAN) Given 12/07/2019 12:42 PM WINDOW MACHINE OPERATOR 100 mg intravenous, As needed, Starting on Tue12/07/19 at 1242, Anesthesia Intra-op remifentanil 20 mcg/mL in Rate/Dose 12/07/2019 1:43 0.1 mcg/kg/min 2 2.9 mL/hr NaCl 0.9% 100 mL infusion Change PM WINDOW MACHINE OPERATOR (ULTIVA) Continuous Infusion: Per Instructions PRN, Starting on Tue12/07/19 at 1246, Anesthesia Intra-op Rate/Dose Change 12/07/2019 12:53 PM WINDOW MACHINE OPERATOR 0.2 mcg/kg/min 45.8 mL/hr New Bag 12/07/2019 12:46 PM WINDOW MACHINE OPERATOR 0.25 mcg/kg/min 57.3 mL/hr succinylcholine (PF) injection (ANECTINE ) Given 12/07/2019 12:42 PM WINDOW MACHINE OPERATOR 10 mg intravenous, As needed, Starting on Tue12/07/19 at 1242, Anesthesia Intra-op vancomycin in NaCl 0.9% IVPB 1,250 mg Given 12/07/2019 12:51 PM WINDOW MACHINE OPERATOR 1.25 g 1,250 mg (rounded [...]
--- OUTSIDE RECORDS SUMMARY | 2022-11-08 14:08 | XMS_ITS | Encounter Summary ---
:1965 Author Organization [facility] Address [address] [place] [address] Care Team Providers Name Role Phone Unavailable Primary Care Provider Unavailable Reason for Referral Outpatient (Routine) - Closed Specialty Diagnoses / Procedures Referred By Contact Refer red To Contact Otorhinolaryngology Darlin Olmedo M.D . [address] [address] Referral ID Status Reason Start Date Expiration Date Visits Requ ested Visits Authorized [id number] Closed 12/18/2019 12/17/2020 1 1 WORKER Reason for Visit Outpatient (Routine) - Closed Specialty Diagnoses / Procedures Referred By Contact Refer red To Contact Otorhinolaryngology Darlin Olmedo M.D . [address] [address] Referral ID Status Reason Start Date Expiration Date Visits Requ ested Visits Authorized [id number] Closed 11/29/2019 11/28/2020 1 1 Encounter Details Date Type Department Care Team Description 12/18/2019 Office Visit Department of Darlin Olmedo Mucocele Nasa l Sinus Otorhinolaryngology jimmy Brumfield M.D. (Primary Dx) [place] [address] [facility] [[email or web address]] [address] [place] [phone] Social History Tobacco Use Types Packs/Day Years [...] attend latter day or Patient refused 2021 mormonism services? Do [...] we will refer to neurology headache clinic. WORKER documented in this encounter Plan of [...]
--- OUTSIDE RECORDS SUMMARY | 2022-11-08 14:08 | XMS_ITS | Encounter Summary ---
:1965 Author Organization [facility] Address [address] [place] [address] Care Team Providers Name Role Phone Unavailable Primary Care Provider Unavailable Reason for Referral Outpatient (Routine) - Closed Specialty Diagnoses / Procedures Referred By Contact Refer red To Contact Neurology Robert Diehl M. D. [facility] [address] [place] [address] Referral ID Status Reason Start Date Expiration Date Visits Requ ested Visits Authorized [id number] Closed 09/15/2020 09/15/2021 1 1 Reason for Visit Appointment Request (Routine) - Closed Specialty Diagnoses / Procedures Referred By Contact Refer red To Contact Neurology Referral ID Status Reason Start Date Expiration Date Visits Requ ested Visits Authorized [id number] Closed 07/31/2020 07/31/2021 1 1 Encounter Details Date Type Department Care Team Description 09/15/2020 Virtual Visit Department of Robert Diehl [place] An eurysm Nonruptured (HCC) (Primary Dx); Neurology in M.D. Nicotine Dependence ; [place], [place] 200 [facility] Aneurysm Cerebral Unruptured (HCC) [address] [place] [phone] Social History Tobacco Use Types Packs/Day [...] you attend catholic or Patient refused 2021 jain services? Do [...] via the telephone and not in a kkaw-zc-mxmi manner. Ms. Mosquera is a 55-year-old woman [...] Priority Associated Diagnoses Order S [facility] Neurology office Outpatient Referral Routine Expe cted: [...] nt right vertebral artery. RADHA, MCA, and security patrol driver are patent. Neck MRA: Conventional three-vessel arch [...] nt right vertebral artery. RADHA, MCA, and security patrol driver are patent. Neck MRA: Conventional three-vessel arch [...]
--- OUTSIDE RECORDS SUMMARY | 2022-11-08 14:08 | XMS_ITS | Encounter Summary ---
:1965 Author Organization [facility] Address [address] [place] [address] Care Team Providers Name Role Phone Unavailable Primary Care Provider Unavailable Reason for Visit Reason Onset Date Comments Medication Question 01/08/2020 Encounter Details Date Type Department Care Team Description 01/08/2020 Clinical Department of [place], Medication Communication Otorhinolaryngology in Wolfgang Manuel [place], [place] Lilian 200 [facility] [address] [place] [phone] [place] [address] Social History Tobacco Use Types Packs/Day Years [...] you attend scientology or Patient refused 2021 rastafari services? Do [...] not covered. Patient will do regular Flonase OPERATOR SEMICONDUCTOR WAFERS Telephone Encounter - Donna Martines - 01/08/2020 4:21 PM CST [facility] called about the Fluticasone Propionate (Flonase) prescription that was put through today. The insurance will not cover it because at the end of the SIG it says Sensimist. Please call the pharmacy at [phone], or place another order. Thank you, Donna OPERATOR SEMICONDUCTOR WAFERS documented in this encounter Plan of Treatment Not on filedocumented as of this encounter Visit Diagnoses Not on filedocumented in this encounter Additional Health Concerns Assessment Noted Time PHQ-9 Depression Total Score: 5 04/05/2019 8:00 AM CDT documented as of this encounter
--- OUTSIDE RECORDS SUMMARY | 2022-11-08 14:08 | XMS_ITS | Encounter Summary ---
:1965 Author Organization [facility] Address 200 [place] [address] Care Team Providers Name Role Phone Unavailable Primary Care Provider Unavailable Encounter Details Date Type Department Care Team Description 12/31/2020 Orders Only Department of Robert Diehl Stroke Cereb rovascular Accident Personal History (Primary Dx); Neurology in [place] Thrombosis Arterial (HCC) [place], [place] 200 [facility] 200 [place] [phone] [phone] Social History Tobacco Use Types Packs/Day Years [...]
--- OUTSIDE RECORDS SUMMARY | 2022-11-08 14:08 | XMS_ITS | Encounter Summary ---
:1965 Author Organization [facility] Address [address] [place] [address] Care Team Providers Name Role Phone Unavailable Primary Care Provider Unavailable Reason for Referral MRI/CAT/PET Scan (Routine) - Closed Specialty Diagnoses / Procedures Referred By Contact Refer red To Contact Radiology Diagnoses Ataxia Robert Fowler M.D. [facility] Procedures CT Head Neck Angiogram with IV Contrast 200 [place] [address] Referral ID Status Reason Start Date Expiration Date Visits Requ ested Visits Authorized [id number] Closed 12/31/2020 12/31/2021 1 1 N MIXER Outpatient (Routine) - Closed Specialty Diagnoses / Procedures Referred By Contact Refer red To Contact Video Medicine Diagnoses Stroke Cerebrovascular Accident Personal History Robert Fowler [facility] Margot Quintana 200 [place] [address] Referral ID Status Reason Start Date Expiration Date Visits Requ ested Visits Authorized [id number] Closed 12/30/2020 12/30/2021 1 1 N MIXER MRI/CAT/PET Scan (Routine) - Closed Specialty Diagnoses / Procedures Referred By Contact Refer red To Contact Radiology Diagnoses Ataxia Robert Fowler M.D. [facility] Procedures CT Head Neck Angiogram with IV Contrast [address] [place] [address] Referral ID Status Reason Start Date Expiration Date Visits Requ ested Visits Authorized [id number] Closed 12/30/2020 12/30/2021 1 1 N MIXER MRI/CAT/PET Scan (Routine) - Closed Specialty Diagnoses / Procedures Referred By Contact Refer red To Contact Radiology Diagnoses Stroke Cerebrovascular Accident Personal History Robert Fowler M.D. [facility] Procedures CT Head without IV Contrast [address] [place] [address] Referral ID Status Reason Start Date Expiration Date Visits Requ ested Visits Authorized [id number] Closed 12/30/2020 12/30/2021 1 1 N MIXER Reason for Visit Reason Comments Symptom Assessment Encounter Details Date Type Department Care Team Description 12/22/2020 Clinical Communication Department of Robert Fowler mptom Assessment Neurology jimmy Celaya M.D. [place], [address] [place], [place] [address] [facility] [address] [place], [place] [phone] (Work) [phone] Social History Tobacco Use Types Packs/Day Years [...] you attend mosque or Patient refused 2021 buddhism services? Do [...] Robert Fowler M.D. - 12/31/2020 5:17 PM RESIN MIXER Addended by: ROBERT FOWLER on: 12/31/2020 05:17 PM Modules accepted: Orders N MIXER Addendum Note - Robert Fowler M.D. - 12/30/2020 8:34 AM RESIN MIXER Addended by: ROBERT FOWLER on: 12/30/2020 08:34 AM Modules accepted: Orders N MIXER Telephone Encounter - Zuly Alex R.N. - 12/29/2020 4:48 PM CST The patient telephones back today. She did present to the local ED in [place] for evaluation of her vertigo. She shares [...] get in contact with her [facility] neurologist. The patient reports that at [...] by walking with her hands on her laston until she reached a safe chair to [...] advice. TYPE OF PHONE CALL. Symptom assessment. N MIXER Telephone Encounter - Robert Fowler M.D. - [...] by: Robert Fowler M.D. 12/23/20 8:21 AM RESIN MIXER N MIXER Telephone Encounter - Zuly Alex R.N. - 12/22/2020 5:25 PM CST 5:17 pm. Tried calling to assure she could reach her son to take her to the ED. No answer. N MIXER Telephone Encounter - Zuly Alex R.N. - [...] her to the nearest emergency room or [id number]. She expressed concerns about going to the [...] the nearest ED which would be in [place]. He did not answer. I offered to [...] advice. TYPE OF PHONE CALL. Symptom assessment. N MIXER Telephone Encounter - Robert Fowler M.D. - 12/22/2020 3:29 PM CST Please call patient in triage whether she needs to be seen in the local emergency department for concern of acute stroke? N MIXER documented in this encounter Plan of Treatment Scheduled Referrals Name Type Priority Associated Diagnoses Order S chedule Video anyplace Outpatient Referral Routine Stroke Cerebrovascu lar Expected: visit Accident Personal 12/30/2020 , History Expires: 12/30/2023 documented as of this encounter Results CT Head Neck Angiogram with IV Contrast (01/30/2021 3:24 PM RESIN MIXER) Anatomical Region Laterality Modality Head and Neck, Neuroradiology RST LOS, N/A C omputed Tomography, Computed Neuroradiology ARZ LOS, Neuroradiology T omography FLA LOS Specimen (Source) Anatomical Collection Method Collection Time Re ceived Time Location / / Volume Laterality 01/30/2021 2:25 PM RESIN MIXER Impressions 01/30/2021 3:18 PM RESIN MIXER 1. 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 Slightly decreased high-grade stenosis a t the V3/4 junction with increased flow in the distal V4 segment. 2. Evolving, now chronic right cerebella r infarct. 3. 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 Narrative 01/30/2021 3:18 PM RESIN MIXER EXAM: CT HEAD NECK ANGIOGRAM WITH [...] normal caliber bilater al MCAs, ACAs and armature varnisher. Patent anterior and right posterior communicating arteri [...] normal caliber bilater al MCAs, ACAs and armature varnisher. Patent anterior and right posterior communicating arteri [...] Angiogram with IV Contrast (12/31/2020 3:34 PM RESIN MIXER) Anatomical Region Laterality Modality Head and Neck, Neuroradiology RST LOS, N/A C omputed Tomography, Computed Neuroradiology ARZ LOS, Neuroradiology T omography FLA [facility] Specimen (Source) Anatomical Collection Method Collection Time Re ceived Time Location / / Volume Laterality 12/31/2020 3:49 PM RESIN MIXER Impressions 12/31/2020 4:54 PM RESIN MIXER 1. Evolving right cerebellar infarct with decreased [...] oid ICA aneurysms. Narrative 12/31/2020 4:54 PM RESIN MIXER EXAM: CT HEAD WITHOUT IV CONTRAST, CT [...] spine. Findings discussed with ordering physicDr. Fazal cranadll ([id number]) at 4:54 PM on 12/31/2020. Procedure Note [...] discussed with ordering physici Dr. Fazal abbasi ([id number]) at 4:54 PM on 12/31/2020. IMPRESSION: 1. [...] Head without IV Contrast (12/31/2020 3:34 PM RESIN MIXER) Anatomical Region Laterality Modality Head, Neuroradiology RST LOS, N/A Computed T omography, Computed Neuroradiology ARZ LOS, Neuroradiology T omography FLA LOS Specimen (Source) Anatomical Collection Method Collection Time Re ceived Time Location / / Volume Laterality 12/31/2020 3:49 PM RESIN MIXER Impressions 12/31/2020 4:54 PM RESIN MIXER 1. Evolving right cerebellar infarct with decreased [...] oid ICA aneurysms. Narrative 12/31/2020 4:54 PM RESIN MIXER EXAM: CT HEAD WITHOUT IV CONTRAST, CT [...] discussed with ordering physici Dr. Fazal abbasi ([id number]) at 4:54 PM on 12/31/2020. Procedure Note [...] Findings discussed with ordering Dr. Fazal ching ([id number]) at 4:54 PM on 12/31/2020. IMPRESSION: 1. [...]
--- OUTSIDE RECORDS SUMMARY | 2022-11-08 14:08 | XMS_ITS | Encounter Summary ---
:1965 Author Organization [facility] Address [address] [place] [address] Care Team Providers Name Role Phone Unavailable Primary Care Provider Unavailable Encounter Details Date Type Department Care Team Description 09/15/2020 Ancillary Procedure Department of Robert Diehl Aneurysm Radiology jimmy Celaya M.D. Nonruptured ([facility]) [place], [place] 200 [facility] 200 [place] [phone] Social History Tobacco Use Types Packs/Day Years [...] you attend moravian or Patient refused 2021 judaism services? Do [...] nt right vertebral artery. RADHA, MCA, and golf course superintendent are patent. Neck MRA: Conventional three-vessel arch [...] nt right vertebral artery. RADHA, MCA, and golf course superintendent are patent. Neck MRA: Conventional three-vessel arch [...]
--- OUTSIDE RECORDS SUMMARY | 2022-11-08 14:08 | XMS_ITS | Encounter Summary ---
:1965 Author Organization [facility] Address [address] [place] [address] Care Team Providers Name Role Phone Unavailable Primary Care Provider Unavailable Encounter Details Date Type Department Care Team Description 01/07/2020 Diagnostic Division of Pulmonary Akhil Diehl M.D. [facility] in [place], [facility] [address] [place], [place] 200 [facility] [address] [place], [place] [phone] Social History Tobacco Use Types Packs/Day Years [...] you attend lutheran or Patient refused 2021 muslim services? Do [...] Organization Address City/State/ZIP Code Phon e Number ERIE PATRICIA EAP documented in this encounter Visit Diagnoses Diagnosis Fatigue documented in this encounter Additional Health Concerns Assessment Noted Time PHQ-9 Depression Total Score: 5 04/05/2019 8:00 AM CDT documented as of this encounter
--- OUTSIDE RECORDS SUMMARY | 2022-11-08 14:08 | XMS_ITS | Encounter Summary ---
:1965 Author Organization [facility] Address [address] [place] [address] Care Team Providers Name Role Phone Unavailable Primary Care Provider Unavailable Reason for Visit Outpatient (Routine) - Closed Specialty Diagnoses / Procedures Referred By Contact Refer red To Contact Otorhinolaryngology Darlin Olmedo M.D . [facility] [address] [place] [phone] Referral ID Status Reason Start Date Expiration Date Visits Requ ested Visits Authorized [id number] Closed 12/18/2019 12/17/2020 1 1 Encounter Details Date Type Department Care Team Description 01/08/2020 Office Visit Department of Darlin Olmedo Mucocele Nasa l Sinus Otorhinolaryngology jimmy Brumfield M.D. (Primary Dx) [address] [place] [phone] Social History Tobacco Use Types Packs/Day Years [...] you attend congregation or Patient refused 2021 restorationist services? Do you belong to any clubs or No 05/17/2022 organizations such as congregation groups, [employer], [email or web address] or athletic groups, or school groups? How [...] She will continue saline irrigations and Flonase. AIN/CHECK AIRMAN Associated attestation - Darlin Olmedo M.D. - 01/16/2020 5:45 PM CAPTAIN/CHECK AIRMAN I saw and evaluated the patient, participating [...]
--- OUTSIDE RECORDS SUMMARY | 2022-11-08 14:08 | XMS_ITS | Encounter Summary ---
:1965 Author Organization [facility] Address [address] [place] [address] Care Team Providers Name Role Phone Unavailable Primary Care Provider Unavailable Reason for Visit Reason Comments Michel Encounter Details Date Type Department Care Team Description 09/04/2020 Clinical Communication Department of Robert Diehl W8B/Scharf Neurology in .. [place], [place] [address] [place] [address] 200 [place] [phone] Social History Tobacco Use Types Packs/Day Years [...]
--- OUTSIDE RECORDS SUMMARY | 2022-11-08 14:08 | XMS_ITS | Encounter Summary ---
:1965 Author Organization [facility] Address [address] [place] [address] Care Team Providers Name Role Phone Unavailable [...] you attend shinto or Patient refused 2021 buddhism services? Do [...] 12/07/2019 12:15 Results for this EXAM PM WIRELESS ARCHITECT procedure are i n the results section. documented in this encounter Results NOSE-Otorhinolaryngology Image Exam (12/07/2019 12:15 PM WIRELESS ARCHITECT) Specimen (Source) Anatomical Collection Method Collection Time Re ceived Time Location / / Volume Laterality 12/07/2019 12:15 PM WIRELESS ARCHITECT Narrative IIMS - 12/07/2019 2:07 PM WIRELESS ARCHITECT This order has been created and auto-finalized [...]
--- OUTSIDE RECORDS SUMMARY | 2022-11-08 14:08 | XMS_ITS | Encounter Summary ---
:1965 Author Organization [facility] Address [address] [place] [address] Care Team Providers Name Role Phone Unavailable Primary Care Provider Unavailable Reason for Visit Reason Comments Michel Encounter Details Date Type Department Care Team Description 09/11/2020 Clinical Communication Department of Robert Diehl W8B/Scharf Neurology in .. [place], [place] [address] [place] [address] 200 [place] [phone] [phone] Social History Tobacco Use Types Packs/Day Years [...] attend oriental orthodox or Patient refused 2021 uatsdin services? Do [...] this encounter Miscellaneous Notes Telephone Encounter - Rboert Diehl M.D. - 09/12/2020 4:35 PM CDT This should be resolved now correct? documented in this encounter Plan of Treatment Not on filedocumented as of this encounter Visit Diagnoses Not on filedocumented in this encounter Additional Health Concerns Assessment Noted Time PHQ-9 Depression Total Score: 5 04/05/2019 8:00 AM CDT documented as of this encounter
--- OUTSIDE RECORDS SUMMARY | 2022-11-08 14:08 | XMS_ITS | Encounter Summary ---
:1965 Author Organization [facility] Address [address] [place] [address] Care Team Providers Name Role Phone Unavailable Primary Care Provider Unavailable Encounter Details Date Type Department Care Team Description 12/08/2019 Documentation Department of Darlin Olmedo, Otorhinolaryngology in .[place], [place] [address] [place] [address] 200 [place] [phone] [phone] Social History Tobacco Use Types Packs/Day Years [...] you attend anabaptism or Patient refused 2021 scientologist services? Do [...] as of this encounter Progress Notes Clemente Mdeley M.D. - 12/08/2019 1:33 PM CST Spoke to patient on the phone. Having persistent pain post-op from endoscopic sinus surgery. Chronicpain for spine pathology with oxycodone use jail. Additional doses of oxycodone not sufficient for [...] she is currently having. -Dr. Clemente Medley OYMENT LEGAL ASSISTANT documented in this encounter Plan of Treatment Not on filedocumented as of this encounter Visit Diagnoses Not on filedocumented in this encounter Additional Health Concerns Assessment Noted Time PHQ-9 Depression Total Score: 5 04/05/2019 8:00 AM CDT documented as of this encounter
--- OUTSIDE RECORDS SUMMARY | 2022-11-08 14:08 | XMS_ITS | Encounter Summary ---
:1965 Author Organization [facility] Address [address] [place] [address] Care Team Providers Name Role Phone Unavailable Primary Care Provider Unavailable Encounter Details Date Type Department Care Team Description 08/06/2020 Clinical Communication Department of Honorio, Otorhinolaryngology in Carole Manuel [place], [place] [address] [place] [address] [facility] [phone] [place] [phone] Social History Tobacco Use Types Packs/Day Years [...] you attend nondenominational or Patient refused 2021 jewish services? Do [...] states that she had them done at [facility]. I called the facility and requested [...] she had a CT Scan today in [place]. If her doctor there feels she needs [...]
--- OUTSIDE RECORDS SUMMARY | 2022-11-08 14:09 | XMS_ITS | Encounter Summary ---
:1965 Author Organization [facility] Address [address] [place] [address] Care Team Providers Name Role Phone Unavailable Primary Care Provider Unavailable Reason for Visit Reason Onset Date Comments Nicotine Dependence 08/30/2019 Encounter Details Date Type Department Care Team Description 08/30/2019 Clinical Department of Gagan Christensen Communication Nicotine Kenna D, Dependence, Jordy Alex, C.T.T.[facility], in [place], [place] [address] [place] [address] Social History Tobacco Use Types Packs/Day Years [...] you attend mu-ism or Patient refused 2021 christian services? Do [...]
--- OUTSIDE RECORDS SUMMARY | 2022-11-08 14:09 | XMS_ITS | Encounter Summary ---
:1965 Author Organization [facility] Address [address] [place] [address] Care Team Providers Name Role Phone Unavailable Primary Care Provider Unavailable Reason for Visit Outpatient (Routine) - Closed Specialty Diagnoses / Procedures Referred By Contact Refer red To Contact General Surgery Diagnoses Rhinosinusitis Chronic Jey Santana M.D. [facility] [address] [place] [phone] Referral ID Status Reason Start Date Expiration Date Visits Requ ested Visits Authorized [id number] Closed 11/08/2019 11/07/2020 1 1 Encounter Details Date Type Department Care Team Description 11/29/2019 Comprehensive Visit Preoperative Jey Santana M.D. [address] [place] [phone] Preanesthetic Medical Exam (Primary Dx); Evaluation Center in Lanre Carvajal M.D. [address] [place] [phone] Rhinosinusitis Chronic [place], [place] [address] [place] [phone] Social History Tobacco Use Types Packs/Day Years [...] you attend zoroastrian or Patient refused 2021 restoration services? Do you belong to any clubs or No 05/17/2022 organizations such as zoroastrian groups, unions, [employer] or athletic groups, or school groups? [...] Comments Blood Pressure 108/74 11/29/2019 12:45 PM VISION THERAPIST Pulse 104 11/29/2019 12:45 PM VISION THERAPIST Temperature 36.5 ??C (97.7 ??F) 11/29/2019 12:45 PM VISION THERAPIST Respiratory Rate - - Oxygen Saturation 96% 11/29/2019 12:45 PM VISION THERAPIST Inhaled Oxygen Concentration - - Weight 76.4 kg (168 lb 6.9 oz) 11/29/2019 12:45 PM VISION THERAPIST Height 151.7 cm (4' 11.72) 11/29/2019 12:45 PM VISION THERAPIST Body Mass Index 33.2 11/29/2019 12:45 PM VISION THERAPIST documented in this encounter H&P Notes Lanre Carvajal M.D. - 11/29/2019 12:45 PM CST Preoperative Medical Evaluation Patient Name: Angie Mosquera Age: 54 y.o. Date of : 1965 Patient [address]: [address] [place] [phone] Primary Care Provider: No primary care provider [...] #11 Patent Foramen Ovale (HCC) Noted on [id number]/ ECHO otherwise normal. I will not pursue anything further ON THERAPIST documented in this encounter Plan of Treatment Not on filedocumented as of this encounter Results Creatinine with Estimated GFR - for Lab Draw (11/29/2019 11:30 AM VISION THERAPIST) P athologist Signature Creatinine 0.98 0.59 - 11/29/2019 DTL 1.04 mg/dL 1:05 PM VISION THERAPIST eGFR-Non 65 >=60 11/29/2019 DTL Black/ mL/min/BSA 1:05 PM VISION THERAPIST Italian Comment: ----ADDITIONAL INFORMATION---- Estimated GFR calculated using the 2009 CKD_EPI creatinine equation. eGFR-Black/ 75 >=60 mL/min/BSA 2019 1:05 PM VISION THERAPIST DTL Comment: ----ADDITIONAL INFORMATION---- Estimated GFR calculated using the 2009 CKD_EPI creatinine equation. Specimen Anatomical Collection Method Collection Time Receive d Time (Source) Location / / Volume Laterality Blood (Blood, 11/29/2019 11:30 11/29/2019 Venous) AM VISION THERAPIST 11:50 AM VISION THERAPIST Miranda Collado APRN, C.N.P., M.S.N. LAB BLOOD ADD-ON Performing Organization Address City/State/ZIP Code Phon e Number [facility] - [address] [place], [place] [address] [facility] [place] [address] [facility] [address] documented in this encounter Visit Diagnoses Diagnosis Preanesthetic Medical Exam - Primary Rhinosinusitis Chronic documented in this encounter Additional Health Concerns Assessment Noted Time PHQ-9 Depression Total Score: 5 04/05/2019 8:00 AM CDT documented as of this encounter
--- OUTSIDE RECORDS SUMMARY | 2022-11-08 14:09 | XMS_ITS | Encounter Summary ---
:1965 Author Organization [facility] Address [address] [place] [address] Care Team Providers Name Role Phone Unavailable Primary Care Provider Unavailable Reason for Visit Reason Onset Date Comments MRI from [facility] 10/02/2019 Dr. Diehl Encounter Details Date Type Department Care Team Description 10/02/2019 Clinical Communication Department of Robert Diehl MR I from [facility] in , M.D. [facility] (Dr. Bullock, 200 [facility] F[facility]) [place], [place] [address] [place] [phone] [place], [place] [phone] (Work) [phone] Social History Tobacco Use Types Packs/Day Years [...] you attend hindu or Patient refused 2021 orthodoxy services? Do [...] with the radiology film room (Marlen) at [facility]. They have pushed the MRI and it should be here soon. CTURAL ANALYSIS ENGINEER documented in this encounter Plan of Treatment Not on filedocumented as of this encounter Visit Diagnoses Not on filedocumented in this encounter Additional Health Concerns Assessment Noted Time PHQ-9 Depression Total Score: 5 04/05/2019 8:00 AM CDT documented as of this encounter
--- OUTSIDE RECORDS SUMMARY | 2022-11-08 14:09 | XMS_ITS | Encounter Summary ---
:1965 Author Organization [facility] Address [address] [place] [address] Care Team Providers Name Role Phone Unavailable Primary Care Provider Unavailable Reason for Visit Reason Onset Date Comments Patient wants letter and notes sent to physician in 10/03/[address] Robert Diehl [facility] Encounter Details Date Type Department Care Team Description 10/03/2019 Clinical Communication Department of Robert Diehl Neurology in [place], [place] letter and notes [address] sent to physician [place], [place] in [facility] ( [address] [place] [phone] Robert Diehl) [place], [place] [phone] (Work) [phone] Social History Tobacco Use Types Packs/Day Years [...] you attend episcopal or Patient refused 2021 christian services? Do [...] CST As per documentation in [facility] on 09/04, a letter has been sent to Dr. Blackwell with the patient's notes from her most recent visit. NT CONSULTANT documented in this encounter Plan of Treatment Not on filedocumented as of this encounter Visit Diagnoses Not on filedocumented in this encounter Additional Health Concerns Assessment Noted Time PHQ-9 Depression Total Score: 5 04/05/2019 8:00 AM CDT documented as of this encounter
--- OUTSIDE RECORDS SUMMARY | 2022-11-08 14:09 | XMS_ITS | Encounter Summary ---
:1965 Author Organization [facility] Address [address] [place] [address] Care Team Providers Name Role Phone Unavailable Primary Care Provider Unavailable Encounter Details Date Type Department Care Team Description 12/07/2019 Hospital Encounter RST ROMRadha MORAN OR Darlin Olmedo, [address] [facility] [place] [address] [address] [place] [address] [place] [address] Social History Tobacco Use Types [...] you attend worship or Patient refused 2021 latter-day services? Do [...] Comments Blood Pressure 114/72 12/07/2019 3:30 PM PROCUREMENT FORESTER Pulse 75 12/07/2019 4:25 PM PROCUREMENT FORESTER Temperature 36.5 ??C (97.7 ??F) 12/07/2019 2:32 PM PROCUREMENT FORESTER Respiratory Rate 15 12/07/2019 4:25 PM PROCUREMENT FORESTER Oxygen Saturation 94% 12/07/2019 4:25 PM PROCUREMENT FORESTER Inhaled Oxygen Concentration - - Weight - [...] saline sinus rinse kit (suchas NerhodaMed or [place]). - Follow the directions on the bottle [...] clinic or with another department at [facility], an appointment willbe made for you. If you have not received specific details (date, time, location) within 2 weeks of discharge, please contact our office at [phone] to inquire. If you are to follow up somewhere other than [facility], please schedule this appointment (in the timeframe recommended by your surgeon)at your earliest convenience. CONTACT INFORMATION: If you need to reach the Department of ENT at the [facility] regarding any questions during normal business hours, please call . If you are calling after normal business hours and have a concern that needs to be addressed urgently, please call the [facility] Furnishings Conservator at and ask to speak to the ENT resident preparation supervisor canning. UREMENT FORESTER AttachmentsThe following attachments cannot be sent through Care Everywhere.Your Scopolamine Patch (Nepali)documented in this encounter Medications at Time of [...] Extradural computer navigation was registered according to edge drummer's guidelines and confirmed to be accurate within [...] 5 mL Implants None Darlin Olmedo M.D. UREMENT FORESTER Brief Op Note - Jey Santana M.D. [...] Loss None Implants None Jey Santana M.D. 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 documented in this encounter Visit Diagnoses Not on filedocumented in this encounter Administered Medications Inactive Administered Medications - up to 3 most recent administrations Medication Order MAR Action Action Date Dose Rate Site acetaminophen injection 1,000 New Bag 12/07/2019 2:38 PM 1,000 mg 400 mL/hr mg (OFIRMEV) PROCUREMENT FORESTER 1,000 mg, intravenous, at 400 mL/hr, Administer [...] 1,000 mg (TYLENOL) Given 12/07/2019 12:06 PM PROCUREMENT FORESTER 1,000 mg 1,000 mg, oral, Once, On Tue12/07/19 at 1200, For 1 dose, Pre-Op aprepitant capsule 40 mg (EMEND) Given 12/07/2019 12:06 PM PROCUREMENT FORESTER 40 mg 40 mg, oral, Once as needed, prevent ponv, Starting on Tue12/07/19 at 1145, For 1 dose, Pre-Op caffeine tablet 200 mg Given 12/07/2019 12:06 PM PROCUREMENT FORESTER 200 mg 200 mg, oral, Once as needed, pre-op to prevent caffeine withdrawal headache or to enhance emergence from anesthesia/sedation, Starting on Tue12/07/19 at 1145, For 1 dose, Pre-Op, With sips droperidol injection 0.625 mg (INAPSINE) Given 12/07/2019 2:37 PM PROCUREMENT FORESTER 0.625 mg 0.625 mg, intravenous, Every 6 [...] 25 mcg (SUBLIMAZE) Given 12/07/2019 2:32 PM PROCUREMENT FORESTER 25 mcg 25 mcg, intravenous, Every 2 min PRN, For pain 4 or greater (maximum 100 mcg). If max dose of Fentanyl is reached and if pain is greater than 4, discontinue Fentanyl: give Hydromorphone, Starting on Tue12/07/19 at 1145, Pre-Op ketamine injection 10 mg (KETALAR) Given 12/07/2019 2:37 PM PROCUREMENT FORESTER 10 mg 10 mg, intravenous, Once as needed, Pain sedation mismatch AND RASS score less than -1, Starting on Tue12/07/19 at 1430, For 1 dose, PACU (only) lactated ringers New Bag 12/07/2019 3:48 PM PROCUREMENT FORESTER 20 mL/hr 20 mL/hr 20 mL/hr, intravenous, Continuous, Starting on Tue12/07/19 at 1400, PACU & Post-Op Continued from OR 12/07/2019 2:25 PM PROCUREMENT FORESTER 20 mL/hr 20 mL/hr metoprolol tablet 12.5 [...] 2 mg (VERSED) Given 12/07/2019 12:28 PM PROCUREMENT FORESTER 2 mg 2 mg, intravenous, Once as needed, anxiety, sedation, Starting on Tue12/07/19 at 1145, For 1 dose, Pre-Op ondansetron ODT disintegrating tablet 4 mg Given 12/07/2019 12:0 7 PM PROCUREMENT FORESTER 4 mg (ZOFRAN-ODT) 4 mg, sublingual, Once, On Tue12/07/19 at 1200, For 1 dose, Pre-Op, When splitting ODT at bedside, handle with gloves and a pill splitter to prevent moisture contact. scopolamine base 1 mg Medication Applied 12/07/2019 12:11 PM 1 patch Behind Right over 3 days 1 patch PROCUREMENT FORESTER Ear (TRANSDERM SCOP) 1 patch, transdermal, Administer [...] Recently Administered Medications Times are shown in PROCUREMENT FORESTER. Scheduled Medication Order 12/05/2019 12/06/2019 12/07/2019 acetaminophen [...] (COMPLETED) 1251 (Given - Provider: Gini Garcia, INGREDIENT MIXER, PATIENT LIAISON) 1,250 mg (rounded from 1,146 mg = [...] (CANCELED) 1310 (Given - Provider: Darlin K Kaufman, M.D. - Comment: Soaked on cottonoids and [...] 1211 (Medication Applied - Provider: Steph Gallo R.N.)7156 (Due: Medication Removed - Provider: Discharge Provider, [...]
--- OUTSIDE RECORDS SUMMARY | 2022-11-08 14:09 | XMS_ITS | Encounter Summary ---
:1965 Author Organization [facility] Address [address] [place] [address] Care Team Providers Name Role Phone Unavailable Primary Care Provider Unavailable Reason for Visit Reason Onset Date Comments Schedule Surgery 10/05/2019 Encounter Details Date Type Department Care Team Description 10/05/2019 Clinical Department of Wilcox, Schedule Surge ry Communication [place]ology [place] [address] [facility] [address] [place] [phone] [place] [address] Social History Tobacco Use Types Packs/Day Years [...] Kaykay Murphy R.N. - 10/17/2019 8:10 AM GOLF BALL MARKER Pt has return appt with EKO on 10/23 BALL MARKER Telephone Encounter - Alana Engel L.P.N. - 10/09/2019 2:49 PM CST Note sent to DR. Olmedo and patient's Neurology team to discuss clearance for surgery. Desk is scheduling a return for the patient ot discuss surgery. BALL MARKER Telephone Encounter - Alana Engel L.P.N. [...] following references were used: provider Dr. Olmedo BALL MARKER Telephone Encounter - Zoey Lipscomb - [...] surgical date. She can be reached at [phone]. BALL MARKER documented in this encounter Plan of Treatment Not on filedocumented as of this encounter Visit Diagnoses Not on filedocumented in this encounter Additional Health Concerns Assessment Noted Time PHQ-9 Depression Total Score: 5 04/05/2019 8:00 AM CDT documented as of this encounter
--- OUTSIDE RECORDS SUMMARY | 2022-11-08 14:09 | XMS_ITS | Encounter Summary ---
:1965 Author Organization [facility] Address [address] [place] [address] Care Team Providers Name Role Phone Unavailable Primary Care Provider Unavailable Reason for Visit Reason Onset Date Comments Nicotine Dependence 09/04/2019 Encounter Details Date Type Department Care Team Description 09/04/2019 Clinical Department of Gagan Christensen Communication Nicotine Kenna D, Dependence, Jordy Alex, C[facility], in [place], [place] [address] [place] [address] Social History Tobacco Use Types Packs/Day Years [...] you attend religious or Patient refused 2021 episcopalian services? Do [...]
--- OUTSIDE RECORDS SUMMARY | 2022-11-08 14:09 | XMS_ITS | Encounter Summary ---
:1965 Author Organization [facility] Address [address] [place] [address] Care Team Providers Name Role Phone Unavailable Primary Care Provider Unavailable Encounter Details Date Type Department Care Team Description 10/02/2019 Ancillary Procedure Department of Robert Diehl Arterial Radiology jimmy Celaya M.D. ([facility]) [place], [place] 200 [facility] 200 [place] [phone] Social History Tobacco Use Types Packs/Day Years [...] you attend protestant or Patient refused 2021 worship services? Do [...] Robert Diehl M.D. - 10/02/2019 3:20 PM BILLET CHECKER CHAIR INSPECTOR AND LEVELER: Would you please give the patient a [...] artery finding and the left paraclinoid aneurysm. ET CHECKER documented in this encounter Plan of Treatment Not on filedocumented as of this encounter Procedures Procedure Name Priority Date/Time Associated Comments Diagnosis INTERPRETATION OF RAD - Routine 10/02/2019 1:01 Thrombosis Result s for OUTSIDE MR NECK (most inpatients PM BILLET CHECKER Arterial (HCC) this p rocedure and all are in the outpatients) results section. documented in this encounter Results Interpretation of Outside MR Neck (10/02/2019 1:01 PM BILLET CHECKER) Anatomical Region Laterality Modality Neuroradiology RST LOS, Neuroradiology ARZ LOS, N/A Magnetic Resonance Neuroradiology FLA LOS, Neck Specimen (Source) Anatomical Collection Method Collection Time Re ceived Time Location / / Volume Laterality 10/02/2019 1:03 PM BILLET CHECKER Impressions 10/02/2019 1:18 PM BILLET CHECKER Similar appearance of the distal right vertebral artery irregularity and mild narrowing at C1, r elated to the nonocclusive luminal thrombus, as seen on the prior CTA exams . MRA neck otherwise negative and unchanged. Narrative 10/02/2019 1:18 PM BILLET CHECKER EXAM: ??INTERPRETATION OF OUTSIDE MR NECK COMPARISON: [...]
--- OUTSIDE RECORDS SUMMARY | 2022-11-08 14:09 | XMS_ITS | Encounter Summary ---
:1965 Author Organization [facility] Address [address] [place] [address] Care Team Providers Name Role Phone Unavailable [...] you attend rastafari or Patient refused 2021 sabianist services? Do [...] 11/29/2019 3:10 Results for this EXAM PM SOFTWARE SALES EXECUTIVE procedure are i n the results section. documented in this encounter Results NOSE-Otorhinolaryngology Image Exam (11/29/2019 3:10 PM SOFTWARE SALES EXECUTIVE) Specimen (Source) Anatomical Collection Method Collection Time Re ceived Time Location / / Volume Laterality 11/29/2019 3:08 PM SOFTWARE SALES EXECUTIVE Narrative IIMS - 11/29/2019 3:58 PM SOFTWARE SALES EXECUTIVE This order has been created and [...]
--- OUTSIDE RECORDS SUMMARY | 2022-11-08 14:09 | XMS_ITS | Encounter Summary ---
:1965 Author Organization [facility] Address [address] [place] [address] Care Team Providers Name Role Phone Unavailable Primary Care Provider Unavailable Encounter Details Date Type Department Care Team Description 10/02/2019 Orders Only Department of Robert Diehl Thrombosi s Arterial Neurology in [place] ([facility]) (Primary Dx) [place], [place] 200 [facility] 200 [place] [phone] Social History Tobacco Use Types Packs/Day Years [...] of Outside MR Neck (10/02/2019 1:01 PM TRAINING ENGINEER) Anatomical Region Laterality Modality Neuroradiology RST LOS, Neuroradiology ARZ LOS, N/A Magnetic Resonance Neuroradiology FLA LOS, Neck Specimen (Source) Anatomical Collection Method Collection Time Re ceived Time Location / / Volume Laterality 10/02/2019 1:03 PM TRAINING ENGINEER Impressions 10/02/2019 1:18 PM TRAINING ENGINEER Similar appearance of the distal right vertebral artery irregularity and mild narrowing at C1, r elated to the nonocclusive luminal thrombus, as seen on the prior CTA exams . MRA neck otherwise negative and unchanged. Narrative 10/02/2019 1:18 PM TRAINING ENGINEER EXAM: ??INTERPRETATION OF OUTSIDE MR NECK COMPARISON: [...]
--- OUTSIDE RECORDS SUMMARY | 2022-11-08 14:09 | XMS_ITS | Encounter Summary ---
:1965 Author Organization [facility] Address [address] [place] [address] Care Team Providers Name Role Phone Unavailable Primary Care Provider Unavailable Encounter Details Date Type Department Care Team Description 11/29/2019 Hospital Encounter Department of Jey Santana, Rhinosi nusitis Chronic; Laboratory Medicine M.D. Preanesthetic Medical Exam and Pathology, [address] [place] [address] in [place] [phone] [place] [phone] [place] [address] (Work) [place], [place] [phone] (Fax) [phone] Social History Tobacco Use Types Packs/Day Years [...] R esults for this DIFFERENTIAL, B AM SENIOR ORACLE DATABASE DEVELOPER procedure ar e in the results section. CREATININE WITH Routine 11/29/2019 11:30 Preanesthetic Medical Results for this EGFR, S/P AM SENIOR ORACLE DATABASE DEVELOPER Exam procedure are i n the results section. documented in this encounter Results Creatinine with Estimated GFR - for Lab Draw (11/29/2019 11:30 AM SENIOR ORACLE DATABASE DEVELOPER) P athologist Signature Creatinine 0.98 0.59 - 11/29/2019 DTL 1.04 mg/dL 1:05 PM SENIOR ORACLE DATABASE DEVELOPER eGFR-Non 65 >=60 11/29/2019 DTL Black/ mL/min/BSA 1:05 PM SENIOR ORACLE DATABASE DEVELOPER Ug[place] Comment: ----ADDITIONAL INFORMATION---- Estimated GFR calculated using the 2009 CKD_EPI creatinine equation. eGFR-Black/ 75 >=60 mL/min/BSA 2019 1:05 PM SENIOR ORACLE DATABASE DEVELOPER DTL Comment: ----ADDITIONAL INFORMATION---- Estimated GFR calculated using the 2009 CKD_EPI creatinine equation. Specimen Anatomical Collection Method Collection Time Receive d Time (Source) Location / / Volume Laterality Blood (Blood, 11/29/2019 11:30 11/29/2019 Venous) AM SENIOR ORACLE DATABASE DEVELOPER 11:50 AM SENIOR ORACLE DATABASE DEVELOPER Miranda Collado APRN C.N.P., M.S.N. LAB BLOOD ADD-ON Performing Organization Address City/State/ZIP Code Phon e Number [facility] - [address] [place] [address] [facility] [place] [place] [address] Laboratories-[facility] 200 [facility] (ABNORMAL) CBC without Differential (11/29/2019 11:30 AM SENIOR ORACLE DATABASE DEVELOPER) Patholo gist Method Time Signature Hemoglobin 13.3 11.6 - 11/29/2019 DTL 15.0 g/dL 12:09 PM SENIOR ORACLE DATABASE DEVELOPER Hematocrit 40.6 35.5 - 11/29/2019 DTL 44.9 % 12:09 PM SENIOR ORACLE DATABASE DEVELOPER Erythrocytes 4.08 3.92 - 11/29/2019 DTL 5.13 12:09 PM SENIOR ORACLE DATABASE DEVELOPER x10(12)/L MCV 99.5 (H) 78.2 - 11/29/2019 DTL 97.9 fL 12:09 PM SENIOR ORACLE DATABASE DEVELOPER RBC Distrib Width 13.3 12.2 - 11/29/2019 DTL 16.1 % 12:09 PM SENIOR ORACLE DATABASE DEVELOPER Platelet Count 234 157 - 371 11/29/2019 DTL x10(9)/L 12:09 PM SENIOR ORACLE DATABASE DEVELOPER Leukocytes 5.8 3.4 - 9.6 11/29/2019 DTL x10(9)/L 12:09 PM SENIOR ORACLE DATABASE DEVELOPER Specimen Anatomical Collection Method Collection Time Receive d Time (Source) Location / / Volume Laterality Blood (Blood, 11/29/2019 11:30 11/29/2019 Venous) AM SENIOR ORACLE DATABASE DEVELOPER 11:50 AM SENIOR ORACLE DATABASE DEVELOPER Jey Santana M.D. LAB BLOOD ADD-ON Performing Organization Address City/State/ZIP Code Phon e Number [facility] - [address] [place], [place] [address] [facility] [place] [address] Laboratories-[facility] [address] [facility] documented in this encounter Visit Diagnoses Diagnosis Rhinosinusitis Chronic Preanesthetic Medical Exam documented in this encounter Additional Health Concerns Assessment Noted Time PHQ-9 Depression Total Score: 5 04/05/2019 8:00 AM CDT documented as of this encounter
--- OUTSIDE RECORDS SUMMARY | 2022-11-08 14:09 | XMS_ITS | Encounter Summary ---
:1965 Author Organization [facility] Address [address] [place] [address] Care Team Providers Name Role Phone Unavailable Primary Care Provider Unavailable Reason for Referral Outpatient (Routine) - Closed Specialty Diagnoses / Procedures Referred By Contact Refer red To Contact General Surgery Diagnoses Rhinosinusitis Chronic John Gomez M.D. [address] [address] Referral ID Status Reason Start Date Expiration Date Visits Requ ested Visits Authorized [id number] Closed 11/08/2019 11/07/2020 1 1 utpatient (Routine) - Closed Specialty Diagnoses / Procedures Referred By Contact Refer red To Contact Otorhinolaryngology John Gomez M.D. [address] [phone] Referral ID Status Reason Start Date Expiration Date Visits Requ ested Visits Authorized [id number] Closed 11/08/2019 11/07/2020 1 1 Scheduling Instructions EKO listing visit and NESHA 11/29/2019 RIBUTION SPECIALIST Reason for Visit Reason Onset Date Comments [...] [address] surgery with Dr. [place], [place] [id number] [place] on [phone] [place], 11/05/19.) [place] [phone] Social History Tobacco Use Types Packs/Day Years [...] you attend religion or Patient refused 2021 quaker services? Do [...] Tanvi White R.N. - 11/09/2019 10:02 AM DISTRIBUTION SPECIALIST Patient called to let her know of the preoperative appointments and listing appointment with Dr. Darlin Olmedo. She was also informed that she does not have to stop the aspirin 81 mg for surgery. She verbalized understanding regarding the use of aspirin and was appreciative of the call. RIBUTION SPECIALIST Telephone Encounter - John Gomez M.D. - 11/08/2019 5:00 PM CST Kosta Wu, I placed the NESHA, listing visit, and created the listing. She can stay on her 81 ASA. Thank you. RIBUTION SPECIALIST Addendum Note - John Gomez M.D. - 11/08/2019 4:59 PM DISTRIBUTION SPECIALIST Addended by: JOHN GOMEZ on: 11/08/2019 04:59 PM Modules accepted: Orders RIBUTION SPECIALIST Telephone Encounter - Tanvi White R.N. - 11/08/2019 10:59 AM DISTRIBUTION SPECIALIST SUBJECTIVE CHIEF COMPLAINT / REASON FOR CALL [...] the surgical date. She will require a public transit trolley driver and that plan will work better for her. Disposition/Recommendation: Patient is aware that she will need to call in the night before surgeryfor a report time to [facility]. Information/Education: patient/caller able to teach back Caller agreeable to plan of care: yes The following references were used: nursing clinical judgement RIBUTION SPECIALIST Telephone Encounter - Darlin Olmedo M.D. - 11/08/2019 10:16 AM CST Any of those days are fine. I should see her for a listing visit and NESHA. thanks RIBUTION SPECIALIST Telephone Encounter - Tanvi White R.N. - 11/07/2019 1:34 PM DISTRIBUTION SPECIALIST SUBJECTIVE CHIEF COMPLAINT / REASON FOR CALL [...] following references were used: nursing clinical judgement RIBUTION SPECIALIST documented in this encounter Plan of Treatment Scheduled Referrals Name Type Priority Associated Diagnoses Order S chedule Otorhinolaryngology office Outpatient Routine E xpected: visit (clinic) Referral 11/29/2019, Expires: 11/08/2022 Preoperative Evaluation Outpatient Routine Rhinosinusitis Ex pected: NESHA consult (clinic) Referral Chronic 020 (Approximate), Expires: 11/08/2022 documented as of this encounter Results (ABNORMAL) CBC without Differential (11/29/2019 11:30 AM DISTRIBUTION SPECIALIST) [facility] gist Method Time Signature Hemoglobin 13.3 11.6 - 11/29/2019 DTL 15.0 g/dL 12:09 PM DISTRIBUTION SPECIALIST Hematocrit 40.6 35.5 - 11/29/2019 DTL 44.9 % 12:09 PM DISTRIBUTION SPECIALIST Erythrocytes 4.08 3.92 - 11/29/2019 DTL 5.13 12:09 PM DISTRIBUTION SPECIALIST x10(12)/L MCV 99.5 (H) 78.2 - 11/29/2019 DTL 97.9 fL 12:09 PM DISTRIBUTION SPECIALIST RBC Distrib Width 13.3 12.2 - 11/29/2019 DTL 16.1 % 12:09 PM DISTRIBUTION SPECIALIST Platelet Count 234 157 - 371 11/29/2019 DTL x10(9)/L 12:09 PM DISTRIBUTION SPECIALIST Leukocytes 5.8 3.4 - 9.6 11/29/2019 DTL x10(9)/L 12:09 PM DISTRIBUTION SPECIALIST Specimen Anatomical Collection Method Collection Time Receive d Time (Source) Location / / Volume Laterality Blood (Blood, 11/29/2019 11:30 11/29/2019 Venous) AM DISTRIBUTION SPECIALIST 11:50 AM DISTRIBUTION SPECIALIST John Gomez M.D. LAB BLOOD ADD-ON Performing Organization Address City/State/ZIP Code Phon e Number [facility] - [address] [place], [place] [address] [facility] [place] [address] [facility] [address] documented in this encounter Visit Diagnoses Diagnosis Rhinosinusitis Chronic - Primary documented in this encounter Additional Health Concerns Assessment Noted Time PHQ-9 Depression Total Score: 5 04/05/2019 8:00 AM CDT documented as of this encounter
--- OUTSIDE RECORDS SUMMARY | 2022-11-08 14:09 | XMS_ITS | Encounter Summary ---
:1965 Author Organization [facility] Address [address] [place] [address] Care Team Providers Name Role Phone Unavailable Primary Care Provider Unavailable Reason for Visit Outpatient (Routine) - Closed Specialty Diagnoses / Procedures Referred By Contact Refer red To Contact Otorhinolaryngology Jey Santana M.D. [facility] [address] [place] [phone] Referral ID Status Reason Start Date Expiration Date Visits Requ ested Visits Authorized [id number] Closed 11/08/2019 11/07/2020 1 1 Encounter Details Date Type Department Care Team Description 11/29/2019 Office Visit Department of Darlin Olmedo Mucocele Nasa l Sinus Otorhinolaryngology jimmy Brumfield M.D. (Primary Dx) [place], [place] [address] [place] [address] [place] [phone] Social History Tobacco Use Types [...] you attend confucianism or Patient refused 2021 caodaism services? Do [...] Previous sinus surgery: sinus surgery X2 in [place] and X2 at [place] per patient; mucocele notedby left eye on [...] Crusting Mild = 1 Mild = 1 [place] Score = 2 ASSESSMENT / PLAN [...] if this occurs we will identify another customs consultant surgeon to supervise other team members to safely and seamlessly complete the procedure. Signed consent was obtained today. Patient was seen and examined today in conjunction with Dr. Darlin Olmedo ([phone]). O PNEUMATIC TESTER Associated attestation - Darlin Olmedo M.D. - 11/30/2019 10:43 AM HYDRO PNEUMATIC TESTER I was the supervising physician in the delivery of the service. I saw the patient with Krista Casey APRN, SQL SERVER DEVELOPER, MSN and agree with her history, Assessment [...]
--- OUTSIDE RECORDS SUMMARY | 2022-11-08 14:09 | XMS_ITS | Encounter Summary ---
:1965 Author Organization [facility] Address [address] [place] [address] Care Team Providers Name Role Phone Unavailable Primary Care Provider Unavailable Encounter Details Date Type Department Care Team Description 09/03/2019 Documentation Department of Neurology in Robert Fontanez M.D. [place], [place] 200 [facility] 200 [place] [phone] (Wo rk) Social History Tobacco Use Types [...] you attend sabianism or Patient refused 2021 faith services? Do [...]
--- OUTSIDE RECORDS SUMMARY | 2022-11-08 14:09 | XMS_ITS | Encounter Summary ---
:1965 Author Organization [facility] Address [address] [place] [address] Care Team Providers Name Role Phone Unavailable Primary Care Provider Unavailable Encounter Details Date Type Department Care Team Description 10/09/2019 Orders Only Department of Otorhinolaryngology Alana Engel, in [facility] 200 [facility] 200 [place] [address] [place], [place] [phone] Social History Tobacco Use Types Packs/Day Years [...] you attend yarsani or Patient refused 2021 protestant services? Do [...]
--- OUTSIDE RECORDS SUMMARY | 2022-11-08 14:09 | XMS_ITS | Encounter Summary ---
:1965 Author Organization [facility] Address [address] [place] [address] Care Team Providers Name Role Phone Unavailable Primary Care Provider Unavailable Encounter Details Date Type Department Care Team Description 12/06/2019 Clinical Communication Department of Robert Diehl, Neurology in .. [place], [place] 200 [facility] 200 [place] [phone] Social History Tobacco Use Types Packs/Day Years [...] you attend cheondoism or Patient refused 2021 anglican services? Do [...] during her next visit. Janis Preston R.N. STICS COORDINATOR Telephone Encounter - Janis Preston R.N. - 12/06/2019 1:35 PM CST ----- Message from Robert Diehl M.D. sent at 12/03/2019 10:17 AM LOGISTICS COORDINATOR ----- Regarding: FW: Overnight oximetry Good morning Would you be able to reach out and let this patient know the oximetry was unsuccessful and would need to be repeated and ask if they would like to do this? Thank you! Electronically signed by: Robert Diehl M.D. 12/03/19 10:18 AM LOGISTICS COORDINATOR ----- Message ----- From: Carolynn Stokes Sent: 11/29/2019 2:39 PM LOGISTICS COORDINATOR To: Robert Diehl M.D. Subject: Overnight oximetry Your patients overnight oximetry test did not have recorded data of sufficient duration for an interpretation to be completed and was returned four months after appointment. Therefore an overnight oximetry report will not be generated to [facility]. Please contact your clinical judicial administrative assistant to reschedule an overnight oximetry test if you wish the patient to repeat an overnight oximetry test. STICS COORDINATOR documented in this encounter Plan of [...] Organization Address City/State/ZIP Code Phon e Number [place] [facility] [place] documented in this encounter Visit Diagnoses Diagnosis Fatigue - Primary Fatigue documented in this encounter Additional Health Concerns Assessment Noted Time PHQ-9 Depression Total Score: 5 04/05/2019 8:00 AM CDT documented as of this encounter
--- OUTSIDE RECORDS SUMMARY | 2022-11-08 14:09 | XMS_ITS | Encounter Summary ---
:1965 Author Organization [facility] Address [address] [place] [address] Care Team Providers Name Role Phone Unavailable Primary Care Provider Unavailable Reason for Visit Outpatient (Routine) - Closed Specialty Diagnoses / Procedures Referred By Contact Refer red To Contact Neurology Robert Diehl M. D. [facility] [address] [place] [phone] Referral ID Status Reason Start Date Expiration Date Visits Requ ested Visits Authorized [id number] Closed 06/28/2019 06/27/2020 1 1 Encounter Details Date Type Department Care Team Description 10/02/2019 Office Visit Department of Robert Diehl, Stroke (H CC) (Primary Dx); Neurology in M.DBritton Thrombosis Arterial (HCC) [place], [place] [address] [place] [address] [place] [phone] Social History Tobacco Use Types Packs/Day Years [...] 05/17/2022 organizations such as anabaptist groups, unions, fraeLifestyles or athletic groups, or school groups? How [...] 1. Stroke (HCC) 2. Thrombosis Arterial (HCC) TION ELECTRICAL TECHNICIAN documented in this encounter Plan of Treatment Not on filedocumented as of this encounter Visit Diagnoses Diagnosis Stroke (HCC) - Primary Thrombosis Arterial (HCC) documented in this encounter Additional Health Concerns Assessment Noted Time PHQ-9 Depression Total Score: 5 04/05/2019 8:00 AM CDT documented as of this encounter
--- OUTSIDE RECORDS SUMMARY | 2022-11-08 14:09 | XMS_ITS | Encounter Summary ---
:1965 Author Organization [facility] Address [address] [place] [address] Care Team Providers Name Role Phone Unavailable Primary Care Provider Unavailable Encounter Details Date Type Department Care Team Description 12/07/2019 Surgery RST ROMRadha MORAN OR Darlin Olmedo, SINUSOTOMY ENDOSCOPY [address] [facility] [place] [address] [address] [place] [address] [place] [phone] Social History Tobacco Use Types Packs/Day Years [...] you attend restorationism or Patient refused 2021 holiness services? Do [...] sinus rinse kit (jose ramon Dalal or [place]mar). - Follow the directions on the bottle [...] or with another department at [facility], an appointment willbe made for you. If you have not received specific details (date, time, location) within 2 weeks of discharge, please contact our office at [phone] to inquire. If you are to follow up somewhere other than [facility], please schedule this appointment (in the timeframe recommended by your surgeon)at your earliest convenience. CONTACT INFORMATION: If you need to reach the Department of ENT at the [facility] regarding any questions during normal business hours, please call . If you are calling after normal business hours and have a concern that needs to be addressed urgently, please call the [facility] Tin Flipper at and ask to speak to the ENT resident education spec. OR OF NATUROPATHIC MEDICINE AttachmentsThe following attachments cannot be sent through Care Everywhere.Your Scopolamine Patch (Bhutanese)documented in this encounter Medications at Time [...] Extradural computer navigation was registered according to supervisor sound technician's guidelines and confirmed to be accurate within [...] 5 mL Implants None Darlin Olmedo M.D. OR [facility] NATUROPATHIC MEDICINE Brief Op Note - Jey Santana M.D. [...] Loss None Implants None Jey Santana M.D. 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 Case Notes WATERPROOFER 10:37 documented in this encounter Visit Diagnoses Diagnosis Rhinosinusitis Chronic Mucocele Nasal Sinus documented in this encounter Administered Medications Inactive Administered Medications - up to 3 most recent administrations Medication Order MAR Action Action Date Dose Rate Site acetaminophen injection 1,000 New Bag 12/07/2019 2:38 PM 1,000 mg 400 mL/hr mg (OFIRMEV) DOCTOR OF NATUROPATHIC MEDICINE 1,000 mg, intravenous, at 400 mL/hr, Administer [...] 1,000 mg (TYLENOL) Given 12/07/2019 12:06 PM DOCTOR OF NATUROPATHIC MEDICINE 1,000 mg 1,000 mg, oral, Once, On Tue12/07/19 at 1200, For 1 dose, Pre-Op aprepitant capsule 40 mg (EMEND) Given 12/07/2019 12:06 PM DOCTOR OF NATUROPATHIC MEDICINE 40 mg 40 mg, oral, Once as needed, prevent ponv, Starting on Tue12/07/19 at 1145, For 1 dose, Pre-Op caffeine tablet 200 mg Given 12/07/2019 12:06 PM DOCTOR OF NATUROPATHIC MEDICINE 200 mg 200 mg, oral, Once as needed, pre-op to prevent caffeine withdrawal headache or to enhance emergence from anesthesia/sedation, Starting on Tue12/07/19 at 1145, For 1 dose, Pre-Op, With sips cocaine 4 % external solution Given 12/07/2019 1:10 PM DOCTOR OF NATUROPATHIC MEDICINE 4 mL Other As needed, Starting on Tue12/07/19 at 1310, Intra-Op droperidol injection 0.625 mg (INAPSINE) Given 12/07/2019 2:37 PM DOCTOR OF NATUROPATHIC MEDICINE 0.625 mg 0.625 mg, intravenous, Every 6 [...] 25 mcg (SUBLIMAZE) Given 12/07/2019 2:32 PM DOCTOR OF NATUROPATHIC MEDICINE 25 mcg 25 mcg, intravenous, Every 2 min PRN, For pain 4 or greater (maximum 100 mcg). If max dose of Fentanyl is reached and if pain is greater than 4, discontinue Fentanyl: give Hydromorphone, Starting on Tue12/07/19 at 1145, Pre-Op ketamine injection 10 mg (KETALAR) Given 12/07/2019 2:37 PM DOCTOR OF NATUROPATHIC MEDICINE 10 mg 10 mg, intravenous, Once as needed, Pain sedation mismatch AND RASS score less than -1, Starting on Tue12/07/19 at 1430, For 1 dose, PACU (only) lactated ringers New Bag 12/07/2019 3:48 PM DOCTOR OF NATUROPATHIC MEDICINE 20 mL/hr 20 mL/hr 20 mL/hr, intravenous, Continuous, Starting on Tue12/07/19 at 1400, PACU & Post-Op Continued from OR 12/07/2019 2:25 PM DOCTOR OF NATUROPATHIC MEDICINE 20 mL/hr 20 mL/hr lidocaine-EPINEPHrine 1 %-1:100,000 Given 12/07/2019 1:45 PM DOCTOR OF NATUROPATHIC MEDICINE 2 mL Other injection (XYLOCAINE W/EPI) As needed, Starting on Tue12/07/19 at 1320, Intra-Op Given 12/07/2019 1:20 PM DOCTOR OF NATUROPATHIC MEDICINE 1.5 mL Other metoprolol tablet 12.5 mg [...] 2 mg (VERSED) Given 12/07/2019 12:28 PM DOCTOR OF NATUROPATHIC MEDICINE 2 mg 2 mg, intravenous, Once as needed, anxiety, sedation, Starting on Tue12/07/19 at 1145, For 1 dose, Pre-Op ondansetron ODT disintegrating tablet 4 mg Given 12/07/2019 12:0 7 PM DOCTOR OF NATUROPATHIC MEDICINE 4 mg (ZOFRAN-ODT) 4 mg, sublingual, Once, On Tue12/07/19 at 1200, For 1 dose, Pre-Op, When splitting ODT at bedside, handle with gloves and a pill splitter to prevent moisture contact. oxymetazoline 0.05 % nasal spray Given 12/07/2019 1:42 PM DOCTOR OF NATUROPATHIC MEDICINE 1 application (AFRIN) As needed, Starting on Tue12/07/19 at 1342, Intra-Op scopolamine base 1 mg Medication Applied 12/07/2019 12:11 PM 1 patch Behind Right over 3 days 1 patch DOCTOR OF NATUROPATHIC MEDICINE Ear (TRANSDERM SCOP) 1 patch, transdermal, Administer [...] Recently Administered Medications Times are shown in DOCTOR OF NATUROPATHIC MEDICINE. Scheduled Medication Order 12/05/2019 12/06/2019 12/07/2019 acetaminophen [...] (COMPLETED) 1251 (Given - Provider: Gini Garcia, MONEY LAUNDERING INVESTIGATOR, GEL COATER) 1,250 mg (rounded from 1,146 mg = [...]
--- OUTSIDE RECORDS SUMMARY | 2022-11-08 14:09 | XMS_ITS | Encounter Summary ---
:1965 Author Organization [facility] Address [address] [place] [address] Care Team Providers Name Role Phone Unavailable Primary Care Provider Unavailable Reason for Visit Reason Onset Date Comments wants to have MRI done closer to home before appt 09/03/2019 [facility] Encounter Details Date Type Department Care Team Description 09/03/2019 Clinical Communication Department of Robert Diehl nts to have MRI Neurology in [place], [place] done closer to home [place], [address] [place] before appt [place], [place] ([facility]) [address] [facility] [address] [place], [place] [phone] (Work) [phone] Social History Tobacco Use Types Packs/Day Years [...] for MRA faxed to Dr. Blackwell at [facility] at fax [phone]. Called the patient and left a message [...] like to have her MRI done at [facility] before her appointment with Dr. Diehl on 09/19. Or if she could get her MRI scheduled for the same day as she is here for her appointment. She doesn't want to drive 2 days in a row. She wanted the order sent to Dr. Blackwell so I guess just send notes to Dr. Clemente Blackwell at [facility] Phone- [phone] documented in this encounter Plan of Treatment Not on filedocumented as of this encounter Visit Diagnoses Not on filedocumented in this encounter Additional Health Concerns Assessment Noted Time PHQ-9 Depression Total Score: 5 04/05/2019 8:00 AM CDT documented as of this encounter
--- OUTSIDE RECORDS SUMMARY | 2022-11-08 14:09 | XMS_ITS | Encounter Summary ---
:1965 Author Organization [facility] Address [address] [place] [address] Care Team Providers Name Role Phone Unavailable Primary Care Provider Unavailable Encounter Details Date Type Department Care Team Description 10/03/2019 Clinical Communication Department of Robert Diehl, Neurology in .[place], [place] 200 [facility] 200 [place] [phone] Social History Tobacco Use Types Packs/Day Years [...] Coby this is for you, records request HOVEL DRIVER Telephone Encounter - Janis Preston R.N. - 10/03/2019 3:11 PM CST Called patient back with update about aspirin per Dr. Diehl. Patient voiced understanding that she will stop the warfarin and continue baby aspirin. She wants notes about her visit sent to her DrBrittonin [place]. Janis Preston R.N. HOVEL DRIVER Telephone Encounter - Janis Preston R.N. - [...] dose and warfarin discontinuation. Janis Preston R.N. HOVEL DRIVER documented in this encounter Plan of Treatment Not on filedocumented as of this encounter Visit Diagnoses Not on filedocumented in this encounter Additional Health Concerns Assessment Noted Time PHQ-9 Depression Total Score: 5 04/05/2019 8:00 AM CDT documented as of this encounter
--- OUTSIDE RECORDS SUMMARY | 2022-11-08 14:10 | XMS_ITS | Encounter Summary ---
:1965 Author Organization [facility] Address [address] [place] [address] Care Team Providers Name Role Phone Unavailable Primary Care Provider Unavailable Encounter Details Date Type Department Care Team Description 06/28/2019 Hospital Encounter Department of Fernie Soriano Stroke ([facility]); Radiology, Jordy Alvarado M.D. Thrombosis Arterial ([facility]); Building, in [address] [place] [address] Aneurysm Cerebral Unruptured ([facility]) [place], [place] [address] [place] [address] [place], [place] [phone] (Work) [phone] Social History Tobacco Use Types Packs/Day Years [...] you attend yazdanism or Patient refused 2021 presybeterian services? Do [...] Neuroradiology N/A Computed Tomography ARZ LOS, Neuroradiology [facility] Specimen (Source) Anatomical Collection Method [...] the ventral aspect (series 6 image s [id number]). The lumen remains significantly irregular and there [...] well seen. The RADHA, MCA, a nd COUNTY DEMONSTRATOR branches are unremarkable in appearance. Stable postoperative [...] the ventral aspect (series 6 image s [id number]). The lumen remains significantly irregular and there [...] well seen. The RADHA, MCA, a nd COUNTY DEMONSTRATOR branches are unremarkable in appearance. Stable postoperative [...]
--- OUTSIDE RECORDS SUMMARY | 2022-11-08 14:10 | XMS_ITS | Encounter Summary ---
:1965 Author Organization [facility] Address [address] [place] [address] Care Team Providers Name Role Phone Unavailable Primary Care Provider Unavailable Reason for Visit Reason Onset Date Comments Nicotine Dependence 04/26/2019 Encounter Details Date Type Department Care Team Description 04/26/2019 Clinical Department of Gagan Christensen Communication Nicotine Kenna D, Dependence, Jordy Alex, [facility], in [place], [place] [address] [place] [address] Social History Tobacco Use Types Packs/Day Years [...] you attend uatsdin or Patient refused 2021 latter-day services? Do [...]
--- OUTSIDE RECORDS SUMMARY | 2022-11-08 14:10 | XMS_ITS | Encounter Summary ---
:1965 Author Organization [facility] Address [address] [place] [address] Care Team Providers Name Role Phone Unavailable Primary Care Provider Unavailable Reason for Visit Reason Onset Date Comments Telephone call 04/24/2019 [facility] Encounter Details Date Type Department Care Team Description 04/24/2019 Clinical Communication Department of Blanca, Tele phone call Neurology in Nan Bose M.D. ([facility]) [place], [facility] [place], [place] [address] [place] [address] [place], [place] [phone] (Work) [phone] Social History Tobacco Use Types Packs/Day Years [...] The patient contacted Dr. Henry's office at [facility] for a PFO closure. Depending on your answer would decide if the patient was a candidate for PFO closure. They read your 04/04/18 hospital summary in [facility], but the answer is unclear. Their fax is [phone]. thanks documented in this encounter Plan of Treatment Not on filedocumented as of this encounter Visit Diagnoses Not on filedocumented in this encounter Additional Health Concerns Assessment Noted Time PHQ-9 Depression Total Score: 5 04/05/2019 8:00 AM CDT documented as of this encounter
--- OUTSIDE RECORDS SUMMARY | 2022-11-08 14:10 | XMS_ITS | Encounter Summary ---
:1965 Author Organization [facility] Address [address] [place] [address] Care Team Providers Name Role Phone Unavailable Primary Care Provider Unavailable Reason for Referral Outpatient (Routine) - Closed Specialty Diagnoses / Procedures Referred By Contact Refer red To Contact Neurology Diagnoses Stroke (HCC) Thrombosis Arterial (HCC) Aneurysm Cerebral Unruptured (HCC) Fernie Soriano M.D. [facility] [address] [place] [phone] Referral ID Status Reason Start Date Expiration Date Visits Requ ested Visits Authorized [id number] Closed 03/31/2019 03/30/2020 1 1 Reason for Visit Reason Comments Dizziness Evaluated in [place] with CT scan. Headache Encounter Details Date Type Department Care Team Description 03/29/2019 - Hospital Encounter [facility] Alfredo Rausch M.D., M.A. [address] [phone] Stroke (HCC) (Primary Dx); [facility] [address] [place] [address] [phone] Transient Ischemic Attack; [facility] [address] [place] [address] [phone] Thrombosis Arterial (HCC); [facility], Nicotine Dependence Cigarettes; Second floor Aneurysm Cerebral Unruptured ([facility]) [address] [place] [phone] Social History Tobacco Use Types [...] you attend hinduism or Patient refused 2021 adventism services? Do [...] patient, follows with Dr. Estephanie Franz in [place], [place]. Primary Care Provider Phone Number: None [...] and PCP follow-up with Dr. Franz in [place], [place], scheduled for 04/02/2019. - Please be [...] 04/10/2019 2:15 PM Darlin Olmedo M.D. ENT [facility] RST Spec TEST RESULTS PENDING [...] speech at the time. She presented to [facility], where MRI/MRA head showed [...] was discharged on a , our clinical recruitment and outreach assistant will arrange for PCP follow-up and [...] speech at the time. She presented to [facility], where MRI/MRA head showed [...] was discharged on a weekend, our clinical recruitment and outreach assistant will arrange for PCP follow-up and INR checks on Tuesday. RECOMMENDATIONS: - Patient to continue enoxaparin 70 mg (1 mg/kg) BID bridge to warfarin with goal INR 2-3. Patient to receive INR checks and PCP follow-up with Dr. Franz in [place], [place] as soon as possible after discharge. [...] this after visit summary to your appointment(s). [place], [place] April 02, 2019 - Tuesday --12:30 PM - Hospital Follow-Up with Dr. Gold MD, Colleague of Juana Franz MD, primary care provider, at [facility] RECOMMENDATIONS: * April 02, 2019 at 9:30 AM [facility] INR Check * [facility] You may have outpatient appointments at [facility] that changed during your hospitalization. Refer to your [facility] Patient Visit Guide (PVG) for the most current schedule of appointments and detailed instructions of tests/procedures. Call [phone], if you did not receive an PVG or need to CANCEL any [facility] appointment(s). You were discharged from the Neurology [...] are intact. There is no dysmetria on gvqgwo-wc-lszc and mbre-an-bnah. There are no abnormal or extraneous movements. [...] next week (to be arranged by clinical recruitment and outreach assistant, in-basket message sent). Will also require [...] --Will arrange for PCP appt (Dr. Franz, [place], [place]) for INR monitoring 04/02 or earliest [...] page the neurology stroke/cerebrovascular disease service pager ([phone]) with any questions orconcerns. Kylie Rubio RRebekah. [...] are intact. There is no dysmetria on qeulcp-pu-ltoq and gxyk-rm-afcz. There are no abnormal or extraneous movements. [...] Findings discussed at 2:03 p.m with pager [phone] Additional Diagnostic Studies Ecg 12 Lead Result [...] page the neurology stroke/cerebrovascular disease service pager ([phone]) with any questions orconcerns. documented in this [...] the day of presentation and came to [facility], although head CT did not demonstrate [...] developed a headache approximately 45 min later. [place] room was tilting, not spinning, and had [...] dull and mild now. She presented to [facility], where MRI/MRA head showed [...] are intact. There is no dysmetria on caapqo-ok-znoi and qeao-ox-unri. There are no abnormal or extraneous movements. [...] Findings discussed at 2:03 p.m with pager [phone] Additional Diagnostic Studies ASSESSMENT / PLAN Ms. [...] consult placed Diet: general diet, NPO at [place] for DEVON Tubes/lines: Will place PIV VTE prophylaxis: therapeutic anticoagulation Code status: Full Code Disposition: Likely Home with expected discharge date pending Trent Ferrer M.D. 03/29/19 Please page the stroke/cerebrovascular neurology service pager ([phone]) for any questions or concerns. STROKE DOCUMENTATION: [...] Prior Function / Occupational Profile Level of [place]: Independent with ADLs and functional transfers, Independent [...] Score: 24 Basic Mobility Standardized Score: 61.14 [facility] 0-100% Score: 0 % Basic Mobility [facility] Modifier: CH INTERPRETATION: Clinicians answer the [...] 53 y.o. female who was seen at [facility] and is being evaluated for [...] Prior Function / Occupational Profile Level of [place]: Independent with ADLs and functional transfers, Independent [...] be independent with home exercise resistive theraband (Provencal) program for left shoulder and elbow (MET) OT Goal #3 Date: 03/30/19 @FLOW12([id number])@ Plan Patient agrees with the plan of [...] living independently in her own apartment in [place] until yesterday morning when she noted the [...] Mosquera was initially taken to the [facility] where MRI/MRA (images which I reviewed in QREADS) revealed bila teral small areas of restricted diffusion in posterior distribution involving both the cerebellar and occipital lobes. The etiology was presumed embolic and she was transferred to [place] for further evaluation here. Upon arrival at [place], Ms. Mosquera was described as alert, in [...] has lived alone in an apartment in [place] for,I believe, 5 years. She is unemployed, [...] tone: Upper and lower extremities 0/0. Coordination: Nqjint-ii-xfna was 0/0. Satellite sign was symmetric. Cranial nerves II through XII: Extraocular movements were intact. Visual jhaveri were intact. Xfsj-tx-uvfogouk decreased hearing acuity bilaterally. Smile symmetric. Tongue [...] diagnostic data. 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 female who presents to the [facility] for evaluation of vertigo and [...] an Emergency Neurology consult note. Please page [phone] with any additional questions. I personally spent [...] CHIEF COMPLAINT/REASON FOR VISIT Dizziness (Evaluated in [place] with CT scan. ) and Headache HISTORY OF PRESENT ILLNESS 53-year-old female who presents from outside facility to [facility] ED with a chief concern [...] She was transported from outside hospital to [facility] for further evaluation management by Neurology here. [...] do basic arithmetic No visual agnosia No pdoi-sl-izebj agnosia Lvnpbt-qs-jmtj normal Mvxk-gg-edgd normal Skin: Skin is warm, dry, intact [...] to the emergency department by ambulance from [facility] for evaluation of headache [...] complaining of fatigue only. Neuro imaging at [place]: MRI head MRA demonstrates multiple foci of [...] speech at the time. She presented to [facility], where MRI/MRA head showed [...] was discharged on a weekend, our clinical recruitment and outreach assistant will arrange for PCP follow-up and INR checks on Tuesday. documented in this encounter Plan of Treatment Scheduled Referrals Name Type Priority Associated Order Schedule Diagnoses Neurology - Outpatient Routine Stroke ([facility]) Expected: Cerebrovascular consult Referral Thrombosis 02/2019 (clinic) Arterial ([facility]) (Approximate), Aneurysm Cerebral Expires: Unruptured ([facility]) 03/31/2022 documented as of this [...] - Routine 03/30/2019 5:32 Results for HOSPITAL GLASS CUT OFF TENDER - PM CDT this proc edure MONITORED [...] N/A Computed Tomography ARZ LOS, Neuroradiology [facility] Specimen [...] the ventral aspect (series 6 image s [id number]). The lumen remains significantly irregular and there [...] well seen. The RADHA, MCA, a nd SOLID WASTE DISPOSAL MANAGER branches are unremarkable in appearance. Stable postoperative [...] the ventral aspect (series 6 image s [id number]). The lumen remains significantly irregular and there [...] well seen. The RADHA, MCA, a nd SOLID WASTE DISPOSAL MANAGER branches are unremarkable in appearance. Stable postoperative [...] Prothrombin Time (PT/INR) (03/31/2019 8:12 AM CDT) [facility] Method Time Signature Prothrombin 11.5 9.4 - 12.5 03/31/2019 [facility] Time, P sec 8:46 AM CDT [facility] INR 1.0 0.9 - 1.1 03/31/2019 [facility] 8:46 AM CDT [facility] Comment: ----ADDITIONAL INFORMATION---- Standard intensity warfarin [...] Number [facility] - [address] [place] [address] 05 [facility] CBC without Differential (03/31/2019 8:12 AM CDT) [facility] gist Method Time Signature Hemoglobin 12.9 11.6 - 03/31/2019 [facility] 15.0 g/dL 8:37 AM CDT [facility] Hematocrit 39.6 35.5 - 03/31/2019 [facility] 44.9 % 8:37 AM CDT [facility] Erythrocytes 4.06 3.92 - 03/31/2019 [facility] 5.13 8:37 AM CDT LABORATORIES - x10(12)/L [facility] MCV 97.5 78.2 - 03/31/2019 [facility] 97.9 fL 8:37 AM CDT [facility] RBC Distrib Width 13.2 12.2 - 03/31/2019 [facility] 16.1 % 8:37 AM CDT [facility] Platelet Count 256 157 - 371 03/31/2019 [facility] x10(9)/L 8:37 AM CDT [facility] Leukocytes 5.3 3.4 - 9.6 03/31/2019 [facility] x10(9)/L 8:37 AM CDT [facility] Specimen Anatomical Collection Method Collection Time Receive d Time (Source) Location / / Volume Laterality Blood (Blood, 03/31/2019 8:12 AM 03/31/20 19 8:31 Venous) CDT AM CDT Trent Ferrer M.D. LAB BLOOD ADD-ON Performing Organization Address City/State/ZIP Code Phon e Number [facility]IES - [address] [place], [place] [address] [facility] HOLTER MONITOR - HOSPITAL GLASS CUT OFF TENDER - MONITORED IN HOSPITAL OR ED DISCHARGE (03/30/2019 5:32 PM CDT) [facility] gist Method Time Signature Recording Date [id number] HOLTER SENTINEL Analysis Date 20,190,510 HOLTER SENTINEL Max Heart Rate 125 bpm HOLTER SENTINEL Max Heart Rate [id number] HOLTER Time SENTINEL Min Heart Rate 46 bpm HOLTER SENTINEL Min Heart Rate [id number] HOLTER Time SENTINEL Mean Heart 71 bpm [...] count HOLTER Hour SENTINEL VE Max Per [id number] HOLTER Hour Time SENTINEL AF Count 0 count HOLTER SENTINEL SVT Runs 0 count HOLTER SENTINEL SVE Total 106 count HOLTER Beats SENTINEL SVE Percent 0 percent HOLTER Beats SENTINEL SVE Max Per 18 count HOLTER Hour SENTINEL SVE Max Per [id number] HOLTER Hour Time SENTINEL Specimen (Source) Anatomical [...] superior vena cava. Patent foramen ovale. ??No ggti-pl-grgkg shunt at atrial level. ??Agitated saline injection(s) performed. ??Small pcdph-re-qcxc shunt a t atrial level at rest and with Valsalva release. Pericardial effusion. ??PROCEDURE ??Max sesophageal echocardiogram performed at the request of the primary rn women services. ??Adult probe inserted without difficulty. ??Procedure [...] Sedation Narrator or other pertinent record in [facility] for additional procedure and sedation in [...] superior vena cava. Patent foramen ovale. No kvpl-sn-litve s ballesteros at atrial level. Agitated saline injection(s) performed. Small yiaku-en-zunn shunt at atrial level at rest and with Valsalva release. Pericardial effusion. PROCEDURE Transeso phageal echocardiogram performed at the request of the primary rn women services. Adult pr obe inserted without difficulty. [...] Sedation Narrator or other pertinent record in [facility] for additional procedure and sedation in formation. Transesophageal echocardiogram completed without complications. For the complete report, see the Order-L evel Documents below. See PDF For Result Trent Ferrer M.D. CV ECHO PROCEDURES Prothrombin Time (PT/INR) (03/30/2019 11:42 AM CDT) [facility] Method Time Signature Prothrombin 11.3 9.4 - 12.5 03/30/2019 [facility] Time, P sec 12:05 PM CDT [facility] INR 1.0 0.9 - 1.1 03/30/2019 [facility] 12:05 PM CDT [facility] Comment: ----ADDITIONAL INFORMATION---- Standard intensity warfarin [...] Number [facility] - 200 [place], [place] [address] [facility] ECG 12 Lead (03/30/2019 9:30 AM CDT) P athologist Signature Ventricular Rate 53 BPM MUSE ECG/Min FL Interval 150 ms MUSE QRSD Interval 84 ms MUSE QT Interval 452 ms MUSE QTC Interval 424 ms MUSE P [place] 7 degrees MUSE R [place] -11 degrees MUSE T Wave [place] 1 degrees MUSE Specimen Anatomical Collection Method [...] Potassium, S 4.1 3.6 - 5.2 03/30/2019 [facility] mmol/L 7:41 AM CDT LABORATORIES - [facility] Sodium, S 141 135 - 145 03/30/2019 [facility] mmol/L 7:41 AM CDT [facility] - [facility] Chloride, S 106 98 - 107 03/30/2019 [facility] mmol/L 7:41 AM CDT [facility] - [facility] Bicarbonate, S 24 22 - 29 03/30/2019 [facility] mmol/L 7:41 AM CDT [facility] - [facility] Anion Gap 11 7 - 15 03/30/2019 [facility] 7:41 AM CDT [facility]IES - [facility] BUN (Blood Urea 14 6 - 21 03/30/2019 [facility] Nitrogen), S mg/dL 7:41 AM CDT LAB[facility]IES - [facility] Creatinine 0.73 0.59 - 03/30/2019 [facility] 1.04 mg/dL 7:41 AM CDT [facility] eGFR-Non >90 >=60 03/30/2019 [facility] Black/ mL/min/BSA 7:41 AM CDT LABORATORIES [facility] Comment: ----ADDITIONAL INFORMATION---- Estimated GFR calculated using the 2009 CKD_EPI creatinine equation. eGFR-Black/ >90 >=60 mL/min/BSA 03/30/2019 7:41 [facility] CDT [facility] Comment: ----ADDITIONAL INFORMATION---- Estimated GFR calculated using the 2009 CKD_EPI creatinine equation. Calcium, Total, S 8.9 8.6 - 10.0 mg/dL 03/30/2019 7:41 AM [facility] S Glucose, S 100 70 - 140 mg/dL 03/30/2019 7:41 AM [facility] S Specimen Anatomical Collection Method Collection Time Receive d Time (Source) Location / / Volume Laterality Blood (Blood, 03/30/2019 6:21 AM 03/30/20 19 6:52 Venous) CDT AM CDT Trent Ferrer M.D. LAB BLOOD ADD-ON Performing Organization Address City/State/ZIP Code Phon e Number [facility]IES - [address] (ABNORMAL) CBC without Differential (03/30/2019 6:21 AM CDT) [facility] Method Time Signature Hemoglobin 12.5 11.6 - 03/30/2019 [facility] 15.0 g/dL 6:54 AM CDT [facility] Hematocrit 37.9 35.5 - 03/30/2019 [facility] 44.9 % 6:54 AM CDT [facility] Erythrocytes 3.87 (L) 3.92 - 03/30/2019 [facility] 5.13 6:54 AM CDT LABORATORIES - x10(12)/L [facility] MCV 97.9 78.2 - 03/30/2019 [facility] 97.9 fL 6:54 AM CDT [facility] RBC Distrib 13.5 12.2 - 03/30/2019 [facility] Width 16.1 % 6:54 AM CDT LAB[facility]ATORIES - [facility] Platelet Count 245 157 - 371 03/30/2019 [facility] x10(9)/L 6:54 AM CDT [facility] Leukocytes 4.1 3.4 - 9.6 03/30/2019 [facility] x10(9)/L 6:54 AM CDT LAB[facility]ATORIES - [facility] Specimen Anatomical Collection Method Collection Time Receive d Time (Source) Location / / Volume Laterality Blood (Blood, 03/30/2019 6:21 AM 03/30/20 19 6:44 Venous) CDT AM CDT Trent Ferrer M.D. LAB BLOOD ADD-ON Performing Organization Address City/[facility] Phon e Number [facility] - 200 [place] [address] [facility] Coagulation Factor II Activity Assay (03/30/2019 6:20 AM CDT) athologist Signature Coag Factor II 93 75 - 145 % 03/30/2019 [facility] Assay, P 11:53 AM CDT [facility] Comment: ----ADDITIONAL INFORMATION---- This test has been modified from the richland josephurer's instructions. Its performance characteri stics were determined by [facility] in a manner co nsistent with CLIA requirements. This test has not bee n cleared or approved by the U.S. Food and Drug Admin istration. Specimen Anatomical Collection Method Collection Time Receive d Time (Source) Location / / Volume Laterality Blood 03/30/2019 6:20 AM 9 CDT 11:12 AM CDT Trent Ferrer M.D. LAB BLOOD ADD-ON Performing Organization Address City/[facility] Phon e Number [facility]IES - [address] [place] [address] [facility] Protein S Antigen, Total (03/30/2019 6:20 AM CDT) athologist Signature Protein S Ag, 91 80 - 160 % 03/30/2019 [facility] Total, P 11:04 AM CDT [facility] Comment: ----ADDITIONAL INFORMATION---- This test has been modified from the richland TrustRadiusacturer's instructions. Its performance characteri stics were determined by [facility] in a manner co nsistent with CLIA requirements. This test has not bee n cleared or approved by the U.S. Food and Drug Admin istration. Specimen Anatomical Collection Method Collection Time Receive d Time (Source) Location / / Volume Laterality Blood 03/30/2019 6:20 AM 9 7:17 CDT AM CDT Trent Ferrer M.D. LAB BLOOD NON ADD-ON Performing Organization Address City/[facility]/ZIP [facility] Phon e Number [facility] - [address] [place], [place] [address] [facility] Reptilase Time, Plasma (03/30/2019 6:20 AM CDT) athologist Signature Reptilase 17 14 - 23 03/30/2019 [facility] Time, P sec 9:49 AM CDT [facility] Comment: ----ADDITIONAL INFORMATION---- This test has been modified from the kyle ruizurer's instructions. Its performance characteri stics were determined by [facility] in a manner co nsistent with CLIA requirements. This test has not bee n cleared or approved by the U.S. Food and Drug Admin istration. Specimen Anatomical Collection Method Collection Time Receive d Time (Source) Location / / Volume Laterality Blood 03/30/2019 6:20 AM 9 7:17 CDT AM CDT Trent Ferrer M.D. LAB BLOOD ADD-ON Performing Organization Address City/[facility] Phon e Number [facility] - [address] [place] [address] [facility] (ABNORMAL) APTT Mix 1:1 (03/30/2019 6:20 AM CDT) P athologist Signature APTT Mix 1:1 42 (H) 26 - 36 03/30/2019 [facility] sec 9:49 AM CDT [facility] Comment: ----ADDITIONAL INFORMATION---- This test has been modified from the kyle yangacturer's instructions. Its performance characteri stics were determined by [facility] in a manner co nsistent with CLIA requirements. This test has not bee n cleared or approved by the U.S. Food and Drug Admin istration. Specimen Anatomical Collection Method Collection Time Receive d Time (Source) Location / / Volume Laterality Blood 03/30/2019 6:20 AM 9 7:17 CDT AM CDT Trent Ferrer M.D. LAB BLOOD ADD-ON Performing Organization Address [facility] Phon e Number [facility] - [address] [place] [address] [facility] Heparin Anti-Xa Assay (03/30/2019 6:20 AM CDT) athologist Signature Heparin 0.38 IU/mL 03/30/2019 [facility] Anti-Xa, P 7:12 AM CDT [facility] Comment: UFH therapeutic range: ?? 0.30-0.70 [...] LAB BLOOD NON ADD-ON Performing Organization Address City/[facility]/ZIP Code Phon e Number [facility] - [address] [place] [address] [facility] Beta-2 Glycoprotein 1 Antibodies, IgG and IgM (03/30/2019 6:20 AM CDT) P athologist Signature Beta 2 GP1 Ab <9.4 <15.0 03/30/2019 [facility] IgG, S (Negative) 7:[address] U/mL [facility] Beta 2 GP1 Ab <9.4 <15.0 03/30/2019 [facility] IgM, S (Negative) 7:[address] U/mL [facility] Specimen Anatomical Collection Method Collection Time Receive d Time (Source) Location / / Volume Laterality Blood (Blood, 03/30/2019 6:20 AM 03/30/20 19 9:55 Venous) CDT AM CDT Trent Ferrer M.D. LAB BLOOD ADD-ON Performing Organization Address City/State/ZIP Code Phon e Number [facility] [address] [place] [address] [facility] Phospholipid (Cardiolipin) Antibodies, IgG and IgM (03/30/2019 6:20 AM CDT) P athologist Signature Phospholipid Ab <9.4 <15.0 03/30/2019 [facility] IgM, S (Negative) 3:[address] [facility] Phospholipid Ab <9.4 <15.0 03/30/2019 [facility] IgG, S (Negative) 3:49 PM CDT [place] [address] [facility] Specimen Anatomical Collection Method Collection Time Receive d Time (Source) Location / / Volume Laterality Blood (Blood, 03/30/2019 6:20 AM 03/30/20 19 9:55 Venous) CDT AM CDT Trent Ferrer M.D. LAB BLOOD ADD-ON Performing Organization Address City/State/ZIP Code Phon e Number [facility] [address] [place] [address] [facility] (ABNORMAL) Thrombophilia Profile (03/30/2019 6:20 AM CDT) [facility] Method Time Signature Prothrombin Time 10.9 10.3 - 03/30/2019 [facility] (PT), P 12.8 sec 9:35 AM CDT LABORATORIES - [facility] INR 1.0 03/30/2019 [facility] 9:35 AM CDT [facility]IES - [facility] Activated 57 (H) 26 - 36 03/30/2019 [facility] Partial sec 9:46 AM CDT LABORATORIES - Thrombopl Time, [facility] DRVVT Screen 0.7 0.0 - 1.1 03/30/2019 [facility] Ratio ratio 9:35 AM CDT LAB[facility]ATORIES - [facility] Thrombin Time 73 (H) 15 - 23 03/30/2019 [facility] ([place]), P sec 9:46 AM CDT LABORATORIES - [facility] Comment: ----ADDITIONAL INFORMATION---- This test has been modified from the man ufacturer's instructions. Its performance characteri stics were determined by [facility] in a manner co nsistent with CLIA requirements. This test has not bee n cleared or approved by the U.S. Food and Drug Admin istration. Fibrinogen, P 276 200 - 430 mg/dL 03/30/2019 10:04 AM CDT [facility] [place] Comment: ----ADDITIONAL INFORMATION---- This test has been modified from the [place] [employer]urer's instructions. Its performance characteri stics were determined by [facility] in a manner co nsistent with CLIA requirements. This test has not bee n cleared or approved by the U.S. Food and Drug Admin istration. Fibrinogen 0.26 0.00 - 0.50 03/30/2019 12:44 PM [facility] INIC Equivalent Units mcg/mL U T [facility] D-Dimer Units (DDU) 130 0 - 250 ng/mL 03/30/2019 12:44 PM [facility] D-Dimer [facility] Soluble Fibrin <8 0.0 - 7.9 mcg/mL 03/30/2019 1:19 PM [facility] Monomer T [facility] Comment: ----ADDITIONAL INFORMATION---- This test was developed and its performa nce characteristics determined by [facility] in a manner co nsistent with CLIA requirements. This test has not bee n cleared or approved by the U.S. Food and Drug Admin istration. Antithrombin Activity, 99 80 - 130 % 03/30/2019 10:05 AM [facility] P T [facility] Comment: ----ADDITIONAL INFORMATION---- This test has been modified from the rich[place] [employer]'s instructions. Its performance characteri stics were determined by [facility] in a manner co nsistent with CLIA requirements. This test has not bee n cleared or approved by the U.S. Food and Drug Admin istration. Protein C Activity, P 131 70 - 150 % 03/30/2019 9:33 A M T [facility] Comment: ----ADDITIONAL INFORMATION---- This test has been modified from the rich[place] [employer]'s instructions. Its performance characteri stics were determined by [facility] in a manner co nsistent with CLIA requirements. This test has not bee n cleared or approved by the U.S. Food and Drug Admin istration. Protein S Ag, Free, 59 (L) 65 - 160 % 03/30/2019 10:19 AM [facility] P CDT [facility] - [facility] Chloe Comment: ----ADDITIONAL INFORMATION---- This test has been modified from the rich[place] [employer]urer's instructions. Its performance characteri stics were determined by [facility] in a manner co nsistent with CLIA requirements. This test has not bee n cleared or approved by the U.S. Food and Drug Admin istration. APCRV Ratio 3.0 >or=2.3 03/30/2019 10:11 [facility] AM CDT [facility] Prothrombin [id number] Negative Negative 04/02/2019 5:19 [facility] Mutation, B CDT [facility] PTNT Reviewed By Lewis Moreno, 04/02/2019 5:19 [facility] MBBS CDT [facility] PTNT Interpretation This individual DOES NOT hav e the Prothrombin [id number] mutation. Although the 04/02/2019 5:19 [facility] Prothrombin [id number] mutation is absent, the chloe kang may have other genetic CDT LABORATORIES - and environmental risk factors for thrombosis. Alanna rosa genetic consultation [facility] and counseling of potentially affected family members [facility] testing. Comment: ----ADDITIONAL INFORMATION---- This test is a direct mutation analysis using PCR amplification, signal generation and release by cleavage of se quence specific alleles ([employer], [employer], [place], [place]). This test has been modified from the rich[place] [employer]urer's instructions. Its performance characteristics were determi jayesh by [facility] in a manner consistent with CLIA requirements. This test has not been cleared or approved by the U.S. Food and Drug Administration . Reviewed by: Milad Emerson M.D. 04/03/2019 1:35 PM [facility] CDT [facility] Interpretation ?Type of Study: ?? 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 ??See comments and suggest clinical correlation. [facility] ?2) Data are consistent with the [...] patient does n ot have the prothrombin [id number] mutation. ?Separately performed and reported testing for beta-2 glycoprotein I and anticardiolipin antibodies (IgG and IgM isotypes) demonstrat ed normal results, providing no evidence of antiphospholipid antibodie s by these methodologies. Specimen Anatomical Collection Method Collection Time Receive d Time (Source) Location / / Volume Laterality Blood (Blood, 03/30/2019 6:20 AM 03/30/20 19 8:13 Venous) CDT AM CDT Narrative [facility] - 04/03/2019 1:37 PM CDT Specimen Information: Specimen ID: [id number] Specimen Type: Blood Specimen Collection Start Date: 5/3/[birth year] 9 ??6:20 AM Specimen Received Date: 03/30/2019 ??8:13 AM Specimen ID: [id number] Specimen Type: Blood Specimen Collection Start Date: ??6:20 AM Specimen Received Date: 03/30/2019 ??7:17 AM Specimen ID: [id number] Specimen Type: Blood Specimen Collection Start Date: ??6:20 AM Specimen Received Date: 03/30/2019 ??7:17 AM Specimen ID: [id number] Specimen Type: Blood Specimen Collection Start Date: ??6:20 AM Specimen Received Date: 03/30/2019 ??7:17 AM Specimen ID: [id number] Specimen Type: Blood Specimen Collection Start Date: ??6:20 AM Specimen Received Date: 03/30/2019 ??7:17 AM Specimen ID: [id number] Specimen Type: Blood Specimen Collection Start Date: ??6:20 AM Specimen Received Date: 03/30/2019 ??7:17 AM Trent Ferrer M.D. LAB BLOOD NON ADD-ON Performing Organization Address City/State/ZIP Code Phon e Number [address] [place] [address] Heparin Anti-Xa Assay (03/29/2019 11:28 PM CDT) P athologist Signature Heparin 0.31 IU/mL 03/30/2019 [facility] Anti-Xa, P 12:05 AM CDT [facility] - [facility] Comment: UFH therapeutic range: ?? 0.30-0.70 [...] LAB BLOOD NON ADD-ON Performing Organization Address City/[facility] Phon e Number [facility] LABORATORIES - [address] [phone] [facility] Hemoglobin A1c (03/29/2019 6:05 PM CDT) Analysis Performed At [facility] logist Time Signature Hemoglobin A1c, 5.6 4.0 - 5.6 03/29/2019 [facility] B % 6:50 PM CDT [facility] Specimen Anatomical Collection Method Collection Time Receive d Time (Source) Location / / Volume Laterality Blood (Blood, 03/29/2019 6:05 PM 03/29/20 19 6:28 Venous) CDT PM CDT Trent Ferrer M.D. LAB BLOOD ADD-ON Performing Organization Address City/[facility] Phon e Number [facility] LABORATORIES - [address] [phone] [facility] (ABNORMAL) Lipid Panel (03/29/2019 6:05 PM CDT) [facility] Method Time Signature Cholesterol, 204 (H) mg/dL 03/29/2019 [facility] Total 7:09 PM CDT [facility] Comment: ----REFERENCE VALUE---- Desirable: < 200 Borderline high: 200 - 239 High: > or = 240 Triglycerides 104 mg/dL 03/29/2019 7:09 PM CDT [facility] Comment: ----REFERENCE VALUE---- Normal: <150 Borderline high: 150-199 High: 200-499 Very high: > or =500 Cholesterol, HDL, S 91 >=50 mg/dL 03/29/2019 7:09 PM CDT [facility] Calculated LDL 92 mg/dL 03/29/2019 7:09 PM CDT [facility] Comment: ----REFERENCE VALUE---- Desirable: <100 Above Desirable: 100-129 Borderline high: 130-159 High: 160-189 Very high: > or =190 Cholesterol, Non-HDL, 113 mg/dL 03/29/2019 7:0 9 PM CDT [facility] LAB[facility]ATORIES Calculated - [facility] Comment: ----REFERENCE VALUE---- Desirable: <130 Above Desirable: 130-159 Borderline high: 160-189 High: 190-219 Very high: > or =220 Specimen Anatomical Collection Method Collection Time Receive d Time (Source) Location / / Volume Laterality Blood (Blood, 03/29/2019 6:05 PM 03/29/20 19 6:28 Venous) CDT PM CDT Trent Ferrer M.D. LAB BLOOD ADD-ON Performing Organization Address City/[facility]/ZIP [facility] Phon e Number [facility] - [address] S-TSH (Thyroid-Stimulating Hormone - Sensitive) (03/29/2019 6:05 PM CDT) athologist Signature TSH, Sensitive 1.6 0.3 - 4.2 03/29/2019 [facility] mIU/L 7:09 PM CDT [facility] Specimen Anatomical Collection Method Collection Time Receive d Time (Source) Location / / Volume Laterality Blood (Blood, 03/29/2019 6:05 PM 03/29/20 19 6:28 Venous) CDT PM CDT Trent Ferrer M.D. LAB BLOOD ADD-ON Performing Organization Address City/[facility]/ZIP Code Phon e Number [facility] LAB[facility]ATORIES - [address] APTT (Activated Partial Thromboplastin Time) (03/29/2019 4:46 PM CDT) athologist Signature Activated 29 25 - 37 03/29/2019 [facility] Partial sec 5:01 PM CDT LABORATORIES - [facility] Specimen Anatomical Collection Method Collection Time Receive d Time (Source) Location / / Volume Laterality Blood (Blood, 03/29/2019 4:46 PM 03/29/20 19 4:52 Venous) CDT PM CDT Trent Ferrer M.D. LAB BLOOD ADD-ON Performing Organization Address City/[facility]/ZIP Code Phon e Number [facility] LABORATORIES - [address] [phone] [facility] CT Head Neck Angiogram with IV [...] gs discussed at 2:03 p.m with pager [phone] Narrative 03/29/2019 4:34 PM CDT EXAM: CT [...] gs discussed at 2:03 p.m with pager [phone] Eliseo Mejias M.D. IMG CT PROCEDURES CT [...] gs discussed at 2:03 p.m with pager [phone] Narrative 03/29/2019 4:34 PM CDT EXAM: CT [...] gs discussed at 2:03 p.m with pager [phone] Eliseo Mejias M.D. IMG CT PROCEDURES (ABNORMAL) CBC with Differential, Blood (03/29/2019 2:04 PM CDT) [facility] gist Method Time Signature Hemoglobin 12.4 11.6 - 03/29/2019 [facility] 15.0 g/dL 2:11 PM CDT [facility] Hematocrit 37.0 35.5 - 03/29/2019 [facility] 44.9 % 2:11 PM CDT [facility] Erythrocytes 3.79 (L) 3.92 - 03/29/2019 [facility] 5.13 2:11 PM CDT LABORATORIES - x10(12)/L [facility] MCV 97.6 78.2 - 03/29/2019 [facility] 97.9 fL 2:11 PM CDT [facility] - [facility] RBC Distrib 13.3 12.2 - 03/29/2019 [facility] Width 16.1 % 2:11 PM CDT [facility] Platelet Count 238 157 - 371 03/29/2019 [facility] x10(9)/L 2:11 PM CDT [facility] Leukocytes 4.7 3.4 - 9.6 03/29/2019 [facility] x10(9)/L 2:11 PM CDT [facility] Neutrophils 2.33 1.56 - 03/29/2019 [facility] 6.45 2:11 PM CDT LABORATORIES - x10(9)/L [facility] Lymphocytes 1.74 0.95 - 03/29/2019 [facility] 3.07 2:11 PM CDT LABORATORIES - x10(9)/L [facility] Monocytes 0.32 0.26 - 03/29/2019 [facility] 0.81 2:11 PM CDT LABORATORIES - x10(9)/L [facility] Eosinophils 0.22 0.03 - 03/29/2019 [facility] 0.48 2:11 PM CDT LABORATORIES - x10(9)/L [facility] Basophils 0.04 0.01 - 03/29/2019 [facility] 0.08 2:11 PM CDT LABORATORIES - x10(9)/L [facility] Specimen Anatomical Collection Method Collection Time Receive d Time (Source) Location / / Volume Laterality Blood (Blood, 03/29/2019 2:04 PM 03/29/20 19 2:08 Venous) CDT PM CDT Eliseo Mejias M.D. LAB BLOOD ADD-ON Performing Organization Address City/State/ZIP Code Phon e Number [facility] LABORATORIES - [address] [place], [place] [address] [facility] Basic Metabolic Panel (03/29/2019 2:04 PM CDT) Analysis Performed At Patho logist Time Signature Potassium, P 4.0 3.6 - 5.2 03/29/2019 [facility] mmol/L 2:24 PM CDT [facility] Sodium, P 142 135 - 145 03/29/2019 [facility] mmol/L 2:24 PM CDT [facility] Chloride, P 107 98 - 107 03/29/2019 [facility] mmol/L 2:24 PM CDT [facility] Bicarbonate, P 24 22 - 29 03/29/2019 [facility] mmol/L 2:24 PM CDT [facility] Anion Gap, P 11 7 - 15 03/29/2019 [facility] 2:24 PM T [facility] BUN (Blood Urea 17 6 - 21 03/29/2019 [facility] Nitrogen), P mg/dL 2:24 PM T [facility] Creatinine 0.81 0.59 - 03/29/2019 [facility] 1.04 mg/dL 2:24 PM T [facility] eGFR-Black/Afri >90 >=60 03/29/2019 [facility] can Albanian mL/min/BSA 2:24 PM T [facility] Comment: ----ADDITIONAL INFORMATION---- Estimated GFR calculated using the 2009 CKD_EPI creatinine equation. eGFR Non-Black/ 82 >=60 mL/min/BSA 03/29/2019 2:24 PM [facility] Albanian T [facility] Comment: ----ADDITIONAL INFORMATION---- Estimated GFR calculated using the 2009 CKD_EPI creatinine equation. Calcium, Total, P 8.7 8.6 - 10.0 mg/dL 03/29/2019 2:24 PM [facility] CDT [facility] Glucose, P 101 70 - 140 mg/dL 03/29/2019 2:24 PM [facility] Specimen Anatomical Collection Method Collection Time Receive d Time (Source) Location / / Volume Laterality Blood (Blood, 03/29/2019 2:04 PM 03/29/20 2:08 Venous) CDT PM CDT Eliseo Mejias M.D. LAB BLOOD ADD-ON Performing Organization Address City/State/ZIP Code Phon e Number [facility] LAB[facility]ATORIES - [address] [place], [place] [address] [facility] documented in this encounter Visit Diagnoses [...] (LMX) 1 application, topical, 4 times daily [place] N, mild pain or [...] contact. oxyCODONE IR tablet 5 mg (ROXICODONE) 0905 (Given - Pr ovider: Makenzie Childs RRebekah.) 0666 (Given - Provider: Christiano Mcdonough.)1315 (Given - [...]
--- OUTSIDE RECORDS SUMMARY | 2022-11-08 14:10 | XMS_ITS | Encounter Summary ---
:1965 Author Organization [facility] Address [address] [place] [id number] Care Team Providers Name Role Phone Unavailable Primary Care Provider Unavailable Reason for Visit Reason Onset Date Comments [facility] Med Request 03/30/2019 Encounter Details Date Type Department Care Team Description 03/30/2019 Clinical Communication Department of Tesfaye Ortega [facility] Med Request Nicotine Kenna Bose M.S., [place], [place].[facility] [place] [place] [address] [place] [address] Social History Tobacco Use Types Packs/Day Years [...] CDT Please send the following to the [facility] 1) 14 mg patch 2) Varenicline [...]
--- OUTSIDE RECORDS SUMMARY | 2022-11-08 14:10 | XMS_ITS | Encounter Summary ---
:1965 Author Organization [facility] Address [address] [place] [address] Care Team Providers Name Role Phone Unavailable Primary Care Provider Unavailable Encounter Details Date Type Department Care Team Description 04/04/2019 - Hospital Encounter [facility] Blanca, Stroke (H CC) (Primary Dx); [facility]ine [facility]; [facility], [address] [place] [address] Second floor [phone] [place] [address] [place], [place] (Work) [phone] Social History Tobacco Use [...] you attend sabianism or Patient refused 2021 taoism services? Do [...] up with your primary care provider in [place], [place] for ongoing monitoring of this. - Follow-up in [facility] (Dr. Diehl) in approximately 3 months??? [...] use disorder who initially was admitted to [facility] from 03/29/2019 to 03/31/2019 after presenting [...] use disorder who initially was admitted to [facility] from 03/29/2019 to 03/31/2019 after presenting [...] up with your primary care provider in [place], [place] for ongoing monitoring of this. - Follow-up in [facility] (Dr. Diehl) in approximately 3 months??? [...] only on level surfaces with therapist managing surveillance system monitor while inpatient. Stairs not assessed. RECOMMENDATIONS: [...] by Jessie Candelario P.T., D.P.T. Contact information: [facility], [address] Beryl Gaytan, Laquita Guardado - 04/05/2019 7:21 AM CDT Take a copy of this after visit summary to your appointment(s). [place], [place] April 10, 2019 -Tuesday --11:15 AM - Hospital Follow-Up with Dr. Rosalva MD Colleague of Juana Franz MD primary care provider, at [facility] RECOMMENDATIONS: * * [facility] You may have outpatient appointments at [facility] that changed during your hospitalization. Refer to your [facility] Patient Visit Guide (PVG) for the most current schedule of appointments and detailed instructions of tests/procedures. Call [phone], if you did not receive an PVG or need to CANCEL any [facility] appointment(s). You were discharged from the Neurology [...] No acute overnight events. Vertigo has improved. Fkhm-rz-adbauzkt headache continues. No new symptoms or concerns. [...] use disorder who initially was admitted to [facility] from 03/29/2019 to 03/31/2019 after presenting [...] being followed by a provider at the [facility]. Dose was increased to 1.5 [...] shows no new changes. MRI may not loom changer at this point as she is [...] 0 and symmetric in all muscle groups. Flutnm-dtdx-kuiwrk and heel- montes testing is normal. Deep [...] to clarify this, but would not necessarily loom changer. An MRI brain with and without [...] baseline. Have triaged to therapy only; no agricultural systems specialist consult appears to be necessary at this time. If at any time, the therapists or referring service feel that a agricultural systems specialist review is necessary, please send a [...] Prior Function / Occupational Profile Level of [place]: Independent with ADLs and functional transfers Lives [...] Goal Met 04/05/19 Progress: Improving as expected @[id number])@ Plan Patient agrees with the plan of [...] Prior Function / Occupational Profile Level of [place]: Independent with ADLs and functional transfers Lives [...] for safety and for therapist to bring surveillance system monitor, no obvious loss of balance noted, patient appeared steady with quick turns Training/Intervention: supervision for therapist to bring surveillance system monitor Response: Patient mobilizing 200+ meters with [...] for safety and for therapist to bring surveillance system monitor, no obvious loss of balance noted, patient appeared steady with quick turns Training/Intervention: supervision for therapist to bring surveillance system monitor Response: Patient mobilizing 200+ meters with [...] use disorder who initially was admitted to [facility] from 03/29/2019 to 03/31/2019 after presenting [...] Potassium, S 4.1 3.6 - 5.2 04/05/2019 [facility] mmol/L 9:28 AM CDT LABORATORIES - [facility] Sodium, S 142 135 - 145 04/05/2019 [facility] mmol/L 9:28 AM CDT [facility]ATORIES - [facility] Chloride, S 105 98 - 107 04/05/2019 [facility] mmol/L 9:28 AM CDT [facility]ATORIES - [facility] Bicarbonate, S 25 22 - 29 04/05/2019 [facility] mmol/L 9:28 AM CDT [facility]ATORIES - [facility] Anion Gap 12 7 - 15 04/05/2019 [facility] 9:28 AM CDT [facility]ATORIES - [facility] BUN (Blood Urea 20 6 - 21 04/05/2019 [facility] Nitrogen), S mg/dL 9:28 AM CDT LABORATORIES [facility] Creatinine 0.88 0.59 - 04/05/2019 [facility] 1.04 mg/dL 9:28 AM CDT LAB[facility]ATORIES [facility] eGFR-Non 74 >=60 04/05/2019 [facility] Black/ mL/min/BSA 9:28 AM CDT LABORATORIES [facility] Comment: ----ADDITIONAL INFORMATION---- Estimated GFR calculated using the 2009 CKD_EPI creatinine equation. eGFR-Black/ 86 >=60 mL/min/BSA 04/05/2019 9:28 [facility] CDT LABORATORIES [facility] Comment: ----ADDITIONAL INFORMATION---- Estimated GFR calculated using the 2009 CKD_EPI creatinine equation. Calcium, Total, S 9.2 8.6 - 10.0 mg/dL 04/05/2019 9:28 AM [facility] Glucose, S 124 70 - 140 mg/dL 04/05/2019 9:28 AM [facility] CDT [facility] S Specimen Anatomical Collection Method Collection Time Receive d Time (Source) Location / / Volume Laterality Blood (Blood, 04/05/2019 8:07 AM 04/05/20 19 8:26 Venous) CDT AM CDT Clemente Aiken M.D. LAB BLOOD ADD-ON Performing Organization Address City/State/ZIP Code Phon e Number [facility] LABORATORIES - [address] [place] [address] [facility] CBC with Differential, Blood (04/05/2019 8:07 AM CDT) [facility] Method Time Signature Hemoglobin 12.9 11.6 - 04/05/2019 [facility] 15.0 g/dL 8:38 AM CDT LABORATORIES [facility] Hematocrit 38.0 35.5 - 04/05/2019 [facility] 44.9 % 8:38 AM CDT LABORATORIES [facility] Erythrocytes 3.94 3.92 - 04/05/2019 [facility] 5.13 8:38 AM CDT LABORATORIES - x10(12)/L [facility] MCV 96.4 78.2 - 04/05/2019 [facility] 97.9 fL 8:38 AM CDT LABORATORIES [facility] RBC Distrib Width 13.2 12.2 - 04/05/2019 [facility] 16.1 % 8:38 AM CDT [facility]ATORIES - [facility] Platelet Count 226 157 - 371 04/05/2019 [facility] x10(9)/L 8:38 AM CDT [facility]ATOR[facility] - [facility] Leukocytes 5.5 3.4 - 9.6 04/05/2019 [facility] x10(9)/L 8:38 AM CDT [facility]ATORIES - [facility] Neutrophils 3.00 1.56 - 04/05/2019 [facility] 6.45 8:38 AM CDT LABORATORIES - x10(9)/L [facility] Lymphocytes 1.84 0.95 - 04/05/2019 [facility] 3.07 8:38 AM CDT LABORATORIES - x10(9)/L [facility] Monocytes 0.37 0.26 - 04/05/2019 [facility] 0.81 8:38 AM CDT LABORATORIES - x10(9)/L [facility] Eosinophils 0.22 0.03 - 04/05/2019 [facility] 0.48 8:38 AM CDT LABORATORIES - x10(9)/L [facility] Basophils 0.05 0.01 - 04/05/2019 [facility] 0.08 8:38 AM CDT LABORATORIES - x10(9)/L [facility] Specimen Anatomical Collection Method Collection Time Receive d Time (Source) Location / / Volume Laterality Blood (Blood, 04/05/2019 8:07 AM 04/05/20 19 8:26 Venous) CDT AM CDT Clemente Aiken M.D. LAB BLOOD ADD-ON Performing Organization Address City/State/ZIP Code Phon e Number [facility] LABORATORIES - [address] [place], [place] [address] [facility] (ABNORMAL) Prothrombin Time (PT/INR) (04/05/2019 8:07 AM CDT) [facility] gist Method Time Signature Prothrombin 21.9 (H) 9.4 - 04/05/2019 [facility] Time, P 12.5 sec 8:44 AM CDT LABORATORIES [facility] INR 2.0 0.9 - 1.1 04/05/2019 [facility] 8:44 AM CDT LABORATORIES [facility] Comment: ----ADDITIONAL INFORMATION---- Standard intensity warfarin [...] [facility] [address] [place], [place] [address] [facility] CT Head Neck Angiogram with IV [...] Signature Heparin 0.81 IU/mL 04/04/2019 [facility] Anti-Xa, P 7:40 PM CDT LABORATORIES - [facility] Comment: UFH therapeutic range: ?? 0.30-0.70 [...] LAB BLOOD NON ADD-ON Performing Organization Address [facility] Phon e Number [facility] LABORATORIES - [address] [place], [place] [address] [facility] (ABNORMAL) Prothrombin Time (PT/INR) (04/04/2019 5:25 PM CDT) [facility] [place] Method Time Signature Prothrombin 20.1 (H) 9.4 - 04/04/2019 [facility] Time, P 12.5 sec 5:54 PM CDT LABORATORIES [facility] INR 1.8 0.9 - 1.1 04/04/2019 [facility] 5:54 PM CDT [facility] - [facility] Comment: ----ADDITIONAL INFORMATION---- Standard intensity warfarin therapeutic range: 2.0 to 3.0 ?? High intensity warfarin therapeutic rang e: 2.5 to 3.5 Specimen Anatomical Collection Method Collection Time Receive d Time (Source) Location / / Volume Laterality Blood (Blood, 04/04/2019 5:25 PM 04/04/20 19 5:32 Venous) CDT PM CDT Clemente Aiken M.D. LAB BLOOD ADD-ON Performing Organization Address [facility] Phon e Number [facility] LABORATORIES - [address] [place] [address] [facility] (ABNORMAL) CBC with Differential, Blood (04/04/2019 5:25 PM CDT) [facility] [place] Method Time Signature Hemoglobin 12.1 11.6 - 04/04/2019 [facility] 15.0 g/dL 5:35 PM CDT [facility] Hematocrit 36.3 35.5 - 04/04/2019 [facility] 44.9 % 5:35 PM CDT [facility] Erythrocytes 3.76 (L) 3.92 - 04/04/2019 [facility] 5.13 5:35 PM CDT LABORATORIES - x10(12)/L [facility] MCV 96.5 78.2 - 04/04/2019 [facility] 97.9 fL 5:35 PM CDT LABORATORIES - [facility] RBC Distrib 12.9 12.2 - 04/04/2019 [facility] Width 16.1 % 5:35 PM CDT LABORATORIES - [facility] Platelet Count 224 157 - 371 04/04/2019 [facility] x10(9)/L 5:35 PM CDT [facility]ATORIES - [facility] Leukocytes 4.6 3.4 - 9.6 04/04/2019 [facility] x10(9)/L 5:35 PM CDT [facility]ATORIES - [facility] Neutrophils 2.09 1.56 - 04/04/2019 [facility] 6.45 5:35 PM CDT LABORATORIES - x10(9)/L [facility] Lymphocytes 1.88 0.95 - 04/04/2019 [facility] 3.07 5:35 PM CDT LABORATORIES - x10(9)/L [facility] Monocytes 0.39 0.26 - 04/04/2019 [facility] 0.81 5:35 PM CDT LABORATORIES - x10(9)/L [facility] Eosinophils 0.18 0.03 - 04/04/2019 [facility] 0.48 5:35 PM CDT LABORATORIES - x10(9)/L [facility] Basophils 0.04 0.01 - 04/04/2019 [facility] 0.08 5:35 PM CDT LABORATORIES - x10(9)/L [facility] Specimen Anatomical Collection Method Collection Time Receive d Time (Source) Location / / Volume Laterality Blood (Blood, 04/04/2019 5:25 PM 04/04/20 19 5:32 Venous) CDT PM CDT Clemente Aiken M.D. LAB BLOOD ADD-ON Performing Organization Address City/State/ZIP Code Phon e Number [facility] LABORATORIES - [address] [place], [place] [address] [facility] (ABNORMAL) APTT (Activated Partial Thromboplastin Time) (04/04/2019 5:25 PM CDT) Analysis Performed At Patho logist Time Signature Activated 44 (H) 25 - 37 04/04/2019 [facility] Partial sec 5:57 PM CDT LABORATORIES - [facility] Specimen Anatomical Collection Method Collection Time Receive d Time (Source) Location / / Volume Laterality Blood (Blood, 04/04/2019 5:25 PM 04/04/20 19 5:32 Venous) CDT PM CDT Clemente Aiken M.D. LAB BLOOD ADD-ON Performing Organization Address City/[facility]/ZIP Code Phon e Number [facility] LABORATORIES - [address] [place], [place] [address] [facility] Magnesium (04/04/2019 5:25 PM CDT) P athologist Signature Magnesium, S 2.3 1.7 - 2.3 04/04/2019 [facility] mg/dL 6:21 PM CDT LABORATORIES - [facility] Specimen Anatomical Collection Method Collection Time Receive d Time (Source) Location / / Volume Laterality Blood (Blood, 04/04/2019 5:25 PM 04/04/20 19 5:40 Venous) CDT PM CDT Clemente Aiken M.D. LAB BLOOD ADD-ON Performing Organization Address City/[facility]/ZIP Code Phon e Number [facility] LABORATORIES - [address] [place] [phone] [facility] Phosphorus Inorganic (04/04/2019 5:25 PM CDT) Analysis Performed At Patho logist Time Signature Phosphorus 3.8 2.5 - 4.5 04/04/2019 [facility] (Inorganic), S mg/dL 6:21 PM CDT LABORATORIES - [facility] Specimen Anatomical Collection Method Collection Time Receive d Time (Source) Location / / Volume Laterality Blood (Blood, 04/04/2019 5:25 PM 04/04/20 19 5:40 Venous) CDT PM CDT Clemente Aiken M.D. LAB BLOOD ADD-ON Performing Organization Address City/[facility]/ZIP Code Phon e Number [facility] LABORATORIES - [address] [place], [place] [address] [facility] (ABNORMAL) Comprehensive Metabolic Panel (04/04/2019 5:25 PM CDT) Patholo gist Method Time Signature Potassium, S 3.5 (L) 3.6 - 5.2 04/04/2019 [facility] mmol/L 6:21 PM CDT LABORATORIES [facility] Sodium, S 141 135 - 145 04/04/2019 [facility] mmol/L 6:21 PM CDT LAB[facility]ATORIES - [facility] Chloride, S 105 98 - 107 04/04/2019 [facility] mmol/L 6:21 CDT [facility]ATORIES - [facility] Bicarbonate, S 23 22 - 29 04/04/2019 [facility] mmol/L 6:21 CDT LAB[facility]ATORIES - [facility] Anion Gap 13 7 - 15 04/04/2019 [facility] 6:21 PM CDT LABORATORIES - [facility] BUN (Blood Urea 20 6 - 21 04/04/2019 [facility] Nitrogen), S mg/dL 6:21 CDT [facility]ATORIES - [facility] Creatinine 0.90 0.59 - 04/04/2019 [facility] 1.04 6:21 CDT LABORATORIES - mg/dL [facility] eGFR-Non 72 >=60 04/04/2019 [facility] Black/ mL/min/BS 6:21 CDT LABORATORIES - [place] [facility] Comment: ----ADDITIONAL INFORMATION---- Estimated GFR calculated using the 2009 CKD_EPI creatinine equation. eGFR-Black/ 83 >=60 mL/min/BSA 04/04/2019 6:21 [facility] [place] CDT LABORATORIES - [facility] Comment: ----ADDITIONAL INFORMATION---- Estimated GFR calculated using the 2009 CKD_EPI creatinine equation. Calcium, Total, S 8.6 8.6 - 10.0 04/04/2019 6:21 [facility] mg/dL CDT LABORATORIES [facility] Glucose, S 96 70 - 140 04/04/2019 6:21 [facility] mg/dL CDT LABORATORIES [facility] Protein, Total, S 6.2 (L) 6.3 - 7.9 04/04/2019 6:21 [facility] g/dL CDT LABORATORIES [facility] Albumin, S 4.1 3.5 - 5.0 04/04/2019 6:21 [facility] g/dL CDT LABORATORIES [facility] Aspartate 21 8 - 43 U/L 04/04/2019 6:21 [facility] Aminotransferase (AST), CDT LABORA TORIES - S [facility] Alkaline Phosphatase, S 73 35 - 104 U/L 04/04/2019 6: 21 [facility] CDT LABORATORIES [facility] Alanine Aminotransferase 14 7 - 45 U/L 04/04/2019 6:2 1 [facility] (ALT), S PM CDT LABORATORIES - [facility] Bilirubin, Total, S 0.2 <=1.2 mg/dL 04/04/2019 6:21 [facility] PM CDT LABORATORIES - [facility] Specimen Anatomical Collection Method Collection Time Receive d Time (Source) Location / / Volume Laterality Blood (Blood, 04/04/2019 5:25 PM 04/04/20 5:40 Venous) CDT PM CDT Clemente Aiken M.D. LAB BLOOD ADD-ON Performing Organization Address City/State/ZIP Code Phon e Number [facility] LABORATORIES - [address] [place], [place] [address] [facility] documented in this encounter Visit Diagnoses [...] Kiara Curry R.N., CRN - Comment: LOT# [id number]) 1-200 mL, intravenous, Once in imaging, contrast, [...]
--- OUTSIDE RECORDS SUMMARY | 2022-11-08 14:10 | XMS_ITS | Encounter Summary ---
:1965 Author Organization [facility] Address [address] [place] [address] Care Team Providers Name Role Phone Unavailable Primary Care Provider Unavailable Reason for Referral Outpatient (Routine) - Closed Specialty Diagnoses / Procedures Referred By Contact Refer red To Contact Neurology Robert Diehl M. D. [facility] [address] [place] [phone] Referral ID Status Reason Start Date Expiration Date Visits Requ ested Visits Authorized [id number] Closed 06/28/2019 06/27/2020 1 1 Reason for Visit Outpatient (Routine) - Closed Specialty Diagnoses / Procedures Referred By Contact Refer red To Contact Neurology Diagnoses Stroke (HCC) Thrombosis Arterial (HCC) Aneurysm Cerebral Unruptured (HCC) Fernie Soriano M.D. [facility] [address] [place] [phone] Referral ID Status Reason Start Date Expiration Date Visits Requ ested Visits Authorized [id number] Closed 03/31/2019 03/30/2020 1 1 Encounter Details Date Type Department Care Team Description 06/28/2019 Office Visit Department of Robert Diehl Fatigue ( Primary Dx); Neurology in [place] Stroke (HCC); [place], [place] 200 [facility] Thrombosis Arterial (HCC); 200 [place], [place] Aneurysm Cerebral Unruptured (HCC) [place] [address] [phone] Social History Tobacco Use Types Packs/Day Years [...] PUL Home Overnight Oximetry 2. Stroke ([facility]) Neurology - Cerebrovascular consult (clinic) MR Neck Angiogram without and with IV Contrast PM Device interrogation (clinic) 3. Thrombosis Arterial ([facility]) Neurology - Cerebrovascular consult (clinic) MR Neck Angiogram without and with IV Contrast PM Device interrogation (clinic) 4. Aneurysm Cerebral Unruptured ([facility]) Neurology - Cerebrovascular consult (clinic) documented in this encounter Plan of Treatment Scheduled Orders Name Type Priority [facility] Diagnoses [facility] PFT Routine Fatigue Expected: 06/28/2019 Oximetry (Approximate), Expires: 06/28/2022 Scheduled Referrals Name Type Priority Associated Diagnoses Order S [facility] Neurology office Outpatient Referral Routine Expe [...]
--- OUTSIDE RECORDS SUMMARY | 2022-11-08 14:11 | XMS_ITS | Encounter Summary ---
:1965 Author Organization [facility] Address [address] [place] [address] Care Team Providers Name Role Phone Unavailable [...] [facility] Indications: ?PNE PATHWAY CALL [phone] IF POS. ??TECHNOTE: NIPPLE PIERCINGS LUNG ARTIFACT. [...] from the original. Indications: PNE PATHWAY CALL [phone] IF P OS. TECHNOTE: NIPPLE PIERCINGS LUNG [...]
--- OUTSIDE RECORDS SUMMARY | 2022-11-08 14:11 | XMS_ITS | Encounter Summary ---
:1965 Author Organization [facility] Address [address] [place] [address] Care Team Providers Name Role Phone Unavailable [...] you attend baptist or Patient refused 2021 holiness services? Do [...]
--- OUTSIDE RECORDS SUMMARY | 2022-11-08 14:11 | XMS_ITS | Encounter Summary ---
:1965 Author Organization [facility] Address [address] [place] [address] Care Team Providers Name Role Phone Unavailable [...] encounter Results [place] Esophagram (08/24/2007 10:57 AM [facility]) Anatomical Region Laterality Modality Gastro Intestinal, Abdominal RST LOS N/A Rad iographic Imaging Specimen (Source) Anatomical Collection Method Collection Time Re ceived Time Location / / Volume Laterality 08/24/2007 10:57 AM MST Narrative 08/24/2007 11:41 AM [facility] Indications: ?STATUS POST GASTRIC BYPASS [...]
--- OUTSIDE RECORDS SUMMARY | 2022-11-08 14:11 | XMS_ITS | Encounter Summary ---
:1965 Author Organization [facility] Address [address] [place] [address] Care Team Providers Name Role Phone Unavailable [...]
--- OUTSIDE RECORDS SUMMARY | 2022-11-08 14:11 | XMS_ITS | Encounter Summary ---
:1965 Author Organization [facility] Address [address] [place] [address] Care Team Providers Name Role Phone Unavailable [...]
--- OUTSIDE RECORDS SUMMARY | 2022-11-08 14:11 | XMS_ITS | Encounter Summary ---
:1965 Author Organization [facility] Address [address] [place] [address] Care Team Providers Name Role Phone Unavailable [...] and Lateral 2 Views (08/18/2008 9:44 PM [facility]) Anatomical Region Laterality Modality Chest, Thoracic RST LOS N/A Radiographic Xi ging Specimen (Source) Anatomical Collection Method Collection Time Re ceived Time Location / / Volume Laterality 08/18/2008 9:44 PM MST Narrative 08/18/2008 9:57 PM [facility] Indications: ?PNE PATHWAY CALL [phone] IF POS - pt unable to remove [...] from the original. Indications: PNE PATHWAY CALL [phone] IF P OS - pt unable to [...]
--- OUTSIDE RECORDS SUMMARY | 2022-11-08 14:11 | XMS_ITS | Encounter Summary ---
:1965 Author Organization [facility] Address [address] [place] [address] Care Team Providers Name Role Phone Unavailable [...] you attend congregational or Patient refused 2021 restorationist services? Do [...] 2:55 PM MST Indications: ?CP PATHWAY CALL [phone] IF POS ORIGINAL REPORT - 24-Jul-2009 14:55:00 [...] from the original. Indications: CP PATHWAY CALL [phone] IF PO S ORIGINAL REPORT - 24-Jul-2009 [...]
--- OUTSIDE RECORDS SUMMARY | 2022-11-08 14:11 | XMS_ITS | Encounter Summary ---
:1965 Author Organization [facility] Address [address] [place] [address] Care Team Providers Name Role Phone Unavailable [...]
--- OUTSIDE RECORDS SUMMARY | 2022-11-08 14:11 | XMS_ITS | Encounter Summary ---
:1965 Author Organization [facility] Address [address] [place] [address] Care Team Providers Name Role Phone Unavailable [...] you attend confucianism or Patient refused 2021 mosque services? Do [...] Pelvis with IV Contrast (09/02/2007 1:17 AM [facility]) Anatomical Region Laterality Modality Pelvis, Abdominal RST LOS N/A Computed Tomog chato Specimen (Source) Anatomical Collection Method Collection Time Re ceived Time Location / / Volume Laterality 09/02/2007 1:17 AM [facility] Addenda Addendum by Elmo Cabrera M.D. on 03/2007 11:40 PM [facility] APPENDED REPORT - 02-Sep-2007 01 :40:00 CT Abdomen w/ Contrast CT Pelvis W Contrast Appended to link all pertinent exams to report. ? Electronically signed by: ?? Mamta Cabrera M.D. 02-Sep-2007 01:40 Narrative 09/02/2007 1:40 AM [facility] Indications: ?R/O ABCESS, POSTOP ORIGINAL REPORT [...] Abdomen with IV Contrast (09/02/2007 1:17 AM [facility]) Anatomical Region Laterality Modality Abdomen, Abdominal RST LOS N/A Computed Tacos graphy Specimen (Source) Anatomical Collection Method Collection Time Re ceived Time Location / / Volume Laterality 09/02/2007 1:17 AM [facility] Addenda Addendum by Elmo Cabrera M.D. on 03/2007 11:40 PM [facility] APPENDED REPORT - 02-Sep-2007 01 :40:00 CT Abdomen w/ Contrast CT Pelvis W Contrast Appended to link all pertinent exams to report. ? Electronically signed by: ?? Mamta Cabrera M.D. 02-Sep-2007 01:40 Narrative 09/02/2007 1:40 AM [facility] Indications: ?R/O ABCESS, POSTOP ORIGINAL REPORT [...]
--- OUTSIDE RECORDS SUMMARY | 2022-11-08 14:11 | XMS_ITS | Encounter Summary ---
:1965 Author Organization [facility] Address [address] [place] [address] Care Team Providers Name Role Phone Unavailable Primary Care Provider Unavailable Encounter Details Date Type Department Care Team Description 01/15/2010 - Hospital Encounter HX ARZ NO MAPPING Leonides Du, 01/16/2010 Lilian [address] [place] [address] Social History Tobacco Use Types [...] encounter Results [place] Esophagram (01/15/2010 9:36 PM [facility]) Anatomical Region Laterality Modality Gastro Intestinal, Abdominal RST LOS N/A Rad iographic Imaging Specimen (Source) Anatomical Collection Method Collection Time Re ceived Time Location / / Volume Laterality 01/15/2010 9:36 PM [facility] Narrative 01/15/2010 9:43 PM [facility] Indications: ?STATUS POST GASTRIC [...]
--- OUTSIDE RECORDS SUMMARY | 2022-11-08 14:11 | XMS_ITS | Encounter Summary ---
:1965 Author Organization [facility] Address [address] [place] [address] Care Team Providers Name Role Phone Unavailable [...] you attend islam or Patient refused 2021 methodist services? Do [...] 9:46 PM MST Indications: ?CP PATHWAY CALL [phone] IF POS ?? tech: pt. not and [...] from the original. Indications: CP PATHWAY CALL [phone] IF PO S tech: pt. not and [...] Lead with rhythm strip (02/03/2009 12:00 AM [facility]) Specimen (Source) Anatomical Location Collection Method / Collectio n Time Received Time / Laterality Volume 02/03/2009 Historical Provider ECG ORDERABLES Performing Organization Address City/State/ZIP Code Phon e Number HX [place] CONVERSION documented in this encounter Visit Diagnoses Not on filedocumented in this encounter
--- OUTSIDE RECORDS SUMMARY | 2022-11-08 14:11 | XMS_ITS | Encounter Summary ---
:1965 Author Organization [facility] Address [address] [place] [address] Care Team Providers Name Role Phone Unavailable [...] you attend catholic or Patient refused 2021 protestant services? Do [...] Address City/State/ZIP Code Phon e Number HX [place] CONVERSION documented in this encounter Visit Diagnoses Not on filedocumented in this encounter
--- OUTSIDE RECORDS SUMMARY | 2022-11-08 14:11 | XMS_ITS | Encounter Summary ---
:1965 Author Organization [facility] Address [address] [place] [address] Care Team Providers Name Role Phone Elsewhere, Pcp Primary Care Provider Unavailable Reason for Referral Outpatient (Routine) - Closed Specialty Diagnoses / Procedures Referred By Contact Refer red To Contact Otorhinolaryngology Diagnoses Sinus Nose Disorder Sinusitis Chronic Chris Mckeon [place] M.D. [address] [place] [address] Referral ID Status Reason Start Date Expiration Date Visits Requ ested Visits Authorized [id number] Closed 01/10/2019 01/10/2020 1 1 LIANCE LEAD Encounter Details Date Type Department Care Team Description 01/10/2019 [facility] Mike, Sinu s Nose Disorder (Primary Dx); AND CLINICS Chris Celaya M.D. Sinusitis Chronic [address] [facility] [address] [place] [address] [place], [place] [phone] Social History Tobacco Use Types Packs/Day Years [...] you attend adventist or Patient refused 2021 hindu services? Do [...] COVID19 Pending 01/31/2021 01/31/2021 01/31/2021 10:53 PM COMPLIANCE LEAD COVID19 Pending 02/10/2021 02/11/2021 02/11/2021 1:09 AM CDT COVID19 Pending 12/29/2021 12/29/2021 12/29/2021 4:20 PM COMPLIANCE LEAD COVID19 Pending 02/25/2022 02/25/2022 02/25/2022 3:59 PM CDT COVID19 Pending 05/17/2022 05/17/2022 05/17/2022 2:34 PM CDT COVID19 Pending 06/15/2022 06/15/2022 06/15/2022 8:24 PM CDT documented as of this encounter Care Teams Chucking Machine Set Up Operator Relationship Specialty Start Date End Date Elsewhere, Pcp PCP - General Family Medicine 12/25/21 documented as of this encounter
--- OUTSIDE RECORDS SUMMARY | 2022-11-08 14:11 | XMS_ITS | Encounter Summary ---
:1965 Author Organization [facility] Address [address] [place] [address] Care Team Providers Name Role Phone Unavailable Primary Care Provider Unavailable Encounter Details Date Type Department Care Team Description 06/21/2017 Hospital Encounter HX [facility] Hernesto Watson M.D. [address] [place] [address], [address] [place] [address] (Wo rk) Social History Tobacco [...] attend oriental orthodox or Patient refused 2021 hindu services? Do [...] - 06/21/2017 12:00 AM CDT 1EMG EMG DIRECTOR OF ROOMS Sergio Watson MD ([phone]) REFERRED BY Dr. Romero. REFERRED FOR Ms. [...] WATSON MD On: 06/21/2017 03:10 PM Source: [facility] MHSDOLBEYNONRADSYS Document Id: [id number] documented in this encounter Miscellaneous Notes Miscellaneous - Sergio Watson M.D. - 06/21/2017 2:19 PM CDT Ambulatory Discharge Medication List [address] [id number] Visit Information Name: KAYLIN BENDER [facility] Number: [id number] Current Date: 06/21/2017 14:19:38 Attending [...] MD Signed On:21-JUN-2017 14:19:21 Additional Information: Source: [facility] POWERCHART Document Id: [id number] Miscellaneous - Sergio Watson M.D. - 06/21/2017 2:19 PM CDT Ambulatory Patient Summary [address] [id number] Visit Information Name: KAYLIN BENDER [facility] Number: [id number] Current Date: 06/21/2017 14:19:38 Physicians Attending Provider: SERGIO WATSON MD Primary Care Provider: PCP, ELSEWHERE KAYILN BENDER has been given the following list [...] if you dont have one. Go to [email or web address] and click on Create Your Account. Then, follow the directions to complete the online form. Youll be asked for your [facility] number which you can find at the top of this document. Your Goals/Additional instructions: Source: [facility] POWERCHART Document Id: [id number] Miscellaneous - Ayla Mcmanus LBrittonP.N. - 06/21/2017 1:25 PM CDT Adult Fuel Cell Binder Intake/History Adult Fuel Cell Binder Intake/History Entered On: 06/21/2017 13:26 CDT Performed On: 06/21/2017 13:25 CDT by AYLA MCMANUS GENERAL PRODUCTION WORKER Intake Systolic Blood Pressure : 124 mmHg Diastolic Blood Pressure : 62 mmHg NIBP Mean : 83 mmHg BP Location : Left upper extremity Blood Pressure Cuff Size : Regular Actual Weight : 70.55 kg(Converted to: 155 lb 9 oz) Dosing Weight Clinic : 70.55 kg AYLA MCMANUS LPN - 06/21/2017 13:25 CDT General Info Information Given By : Patient Languages : Greenlandic Is Patient Female and 13-50 no hysterectomy [...] MCMANUS LPN - 06/21/2017 13:25 CDT Source: [facility] POWERCHART Document Id: [id number] CDT!24 documented in this encounter Plan of Treatment Not on filedocumented as of this encounter Visit Diagnoses Not on filedocumented in this encounter
--- OUTSIDE RECORDS SUMMARY | 2022-11-08 14:11 | XMS_ITS | Encounter Summary ---
:1965 Author Organization [facility] Address [address] [place] [address] Care Team Providers Name Role Phone Unavailable Primary Care Provider Unavailable Encounter Details Date Type Department Care Team Description 09/25/2015 Hospital Encounter HX [facility] Hernesto Watson M.D. [address] [place] [address], [address] [place] [address] (Wo rk) Social History Tobacco [...] KUNZ LPN On: 09/25/2015 03:38 PM Source: [facility] POWERCHART Document Id: [id number] documented in this encounter Miscellaneous Notes Telephone Encounter - Conversion, Historical Provider Ser - 05/11/2017 11:32 AM CDT *Phone Message/Dr. Watson Document Contains Addenda Addendum by IVY BENITEZ on May 11, 2017 13:27:22 CDT From: IVY BENITEZ ( [employer] Manager) To: Physical Medicine and Rehabilitation Staff; Sent: 05/11/2017 13:27:22 CDT Subject: RE: *Phone Message/Dr. Watson Left message on patients phone regarding this appointment. Addendum by NIKKIE GANDHI LPN on May 11, 2017 12:57:21 CDT From: NIKKIE GANDHI LPN ( Physical Medicine and Rehabilitation Staff) To: [employer] Manager; Sent: 05/11/2017 12:57:21 CDT Subject: RE: *Phone Message/Dr. Watson 27 noon, please reschedule. From: IVY BENITEZ ( [employer] Manager) To: Physical Medicine and Rehabilitation Staff; Sent: [...] it done. Please call her back at [phone] to advise. Advice/Action: Source used: ( ) [...] back cell phone number ( ) [facility] Document Id: [id number] Miscellaneous - Nikkie Gandhi L.P.N. - 05/04/2017 4:19 PM CDT *General Message Document Contains Addenda Addendum by ISIDRO HI on May 04, 2017 16:42:57 CDT From: ISIDRO HI ( [employer] Manager) To: Physical Medicine and Rehabilitation Staff; Sent: 05/04/2017 16:42:57 CDT Subject: RE: *General Message Called patient and scheduled as requested. From: NIKKIE GANDHI LPN ( Physical Medicine and Rehabilitation Staff) To: [employer] Manager; Sent: 05/04/2017 16:19:56 CDT Subject: *General Message Please call patient to schedule for bilateral upper extremity EMG. 05/11/17 at 11:45 am. 1 hour Source: [employer] Document Id: [id number] Electronically signed by Avinash [facility] Gas Burner Operator [id number] at 06/01/2017 1:18 AM CDT documented in this encounter Plan of Treatment Not on filedocumented as of this encounter Visit Diagnoses Not on filedocumented in this encounter
--- OUTSIDE RECORDS SUMMARY | 2022-11-08 14:11 | XMS_ITS | Encounter Summary ---
:1965 Author Organization [facility] Address [address] [place] [address] Care Team Providers Name Role Phone Unavailable [...] you attend episcopal or Patient refused 2021 sikhism services? Do [...]
--- OUTSIDE RECORDS SUMMARY | 2022-11-08 14:11 | XMS_ITS | Encounter Summary ---
:1965 Author Organization [facility] Address [address] [place] [address] Care Team Providers Name Role Phone Unavailable [...] you attend adventism or Patient refused 2021 restorationist services? Do [...]
--- OUTSIDE RECORDS SUMMARY | 2022-11-08 14:11 | XMS_ITS | Encounter Summary ---
:1965 Author Organization [facility] Address [address] [place] [address] Care Team Providers Name Role Phone Unavailable Primary Care Provider Unavailable Reason for Visit Reason Onset Date Comments Prior Medical Records/Sinus CT 03/02/2019 Encounter Details Date Type Department Care Team Description 03/02/2019 Clinical Department of [place], Prior Medical Communication Otorhinolaryngology in [place] rds/Sinus CT [place], [place] Lilian [address] [facility] [address] [place] [address] [place] [address] Social History Tobacco Use Types Packs/Day Years [...] you attend islam or Patient refused 2021 hindu services? Do [...] 8:13 AM CDT Per [place] (Dr. Olmedo), [facility] (Dr. Mckeon) ([phone]) was contacted. The previousmedical records have been received and sent for scanning into pt's chart. [facility] will be pushed. Coby documented in this encounter Plan of Treatment Not on filedocumented as of this encounter Visit Diagnoses Not on filedocumented in this encounter
--- OUTSIDE RECORDS SUMMARY | 2022-11-08 14:11 | XMS_ITS | Encounter Summary ---
:[address] [facility] Address [address] [place] [address] Care Team Providers Name Role Phone Unavailable [...] attend latter day or Patient refused 2021 confucianism services? Do [...] Address City/State/ZIP Code Phon e Number HX [place] CONVERSION documented in this encounter Visit Diagnoses Not on filedocumented in this encounter
--- OUTSIDE RECORDS SUMMARY | 2022-11-08 14:11 | XMS_ITS | Encounter Summary ---
:1965 Author Organization [facility] Address [address] [place] [address] Care Team Providers Name Role Phone Unavailable Primary Care Provider Unavailable Reason for Visit Outpatient (Routine) - Closed Specialty Diagnoses / Procedures Referred By Contact Refer red To Contact Otorhinolaryngology Diagnoses Sinus Nose [facility] [address] [place] [address] Referral ID Status Reason Start Date Expiration Date Visits Requ ested Visits Authorized [id number] Closed 01/10/2019 01/10/2020 1 1 Encounter Details Date Type Department Care Team Description 03/01/2019 Comprehensive Visit Department of [place], Sinusit is Chronic (Primary Dx); Otorhinolaryngology in [place], [facility] [address] [place] [address] [place] [address] Social History Tobacco Use Types Packs/Day Years [...] you attend zoroastrian or Patient refused 2021 jain services? 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 - Obtained outside operative reports from [place] - Discussed risks and benefits including but [...]
--- OUTSIDE RECORDS SUMMARY | 2022-11-08 14:11 | XMS_ITS | Encounter Summary ---
:1965 Author Organization [facility] Address [address] [place] [address] Care Team Providers Name Role Phone Unavailable [...] you attend islam or Patient refused 2021 religion services? Do [...]
--- OUTSIDE RECORDS SUMMARY | 2022-11-08 14:11 | XMS_ITS | Encounter Summary ---
:1965 Author Organization [facility] Address [address] [place] [address] Care Team Providers Name Role Phone Unavailable [...]
[2022-11-08 22:19] LABS: Basophils Absolute Auto 0.02 K/uL (0.00-0.30); Basophils Percent Auto 0.2 % (0.0-3.0); Eosinophils Absolute Auto 0.01 K/uL (0.00-0.50); Eosinophils Percent Auto 0.1 % (0.0-7.0); Hematocrit 37.7 % (33.0-51.0); Hemoglobin* 12.3 gm/dL (12.0-16.0); Immature Granulocytes Abs Auto 0.01 K/uL (0.00-0.30); Immature Granulocytes Pct Auto 0.1 %; Lymphocytes Percent Auto 15.4 % (20-44); Mean Corpuscular HGB Conc 33 gm/dL (32-36); Mean Corpuscular Hemoglobin 31 pg (26-34); Mean Corpuscular Volume 94 fL (80-100); Monocytes Percent Auto 2.7 % (0.0-11.0); Neutrophils Percent Auto 81.5 % (42.0-72.0); Platelet Count* 320 K/uL (140-440); RDW Coefficient of Variation % 14.4 % (11.5-15.5); White Blood Count* 9.95 K/uL (4.50-11.00)
[2022-11-08 22:23] LABS: Albumin* 4.1 g/dL (3.3-5.0); Chloride* 109 mmol/L (96-114); Potassium* 4.4 mmol/L (3.6-5.1); Sodium* 142 mmol/L (135-149)
[2022-11-08 22:25] LABS: Bilirubin Total* 0.4 mg/dL (0.1-1.5); Carbon Dioxide* 24 mmol/L (20-32); Creatinine* 0.7 mg/dL (0.5-1.5); Estimated Glomerular Filt Rate 100 ml/min
[2022-11-08 22:26] LABS: Alanine Aminotransferase* 20 U/L (4-35); Alkaline Phosphatase* 93 U/L (40-150); Aspartate Amino Transferase* 23 U/L (12-35); Blood Urea Nitrogen* 21 mg/dL (7-30); Calcium* 9.6 mg/dL (8.4-10.6); Glucose* 117 mg/dL (60-115); Total Protein* 7.1 g/dL (6.0-8.3)
[2022-11-08 22:40] LABS: Slide Review Reflex No
== END 2022-11-08 13:05 | disposition home or self-care (01) ==
PROVIDERS: PCP Family Medicine; Visit Provider Family Medicine
DX: Z01.818 Encounter for other preprocedural examination (principal)
CPT/HCPCS: 80053; 85025; 87081

== ENCOUNTER 2023-03-01 15:43 | Emergency (ER) | payer MEDICARE, OTHER, SELFPAY ==
[2023-03-01 15:57] VITALS: BP 107/69; PULSE 90; RESP 18; TEMP 36.1; O2SAT 95; BMI 29.3
--- NOTE | 2023-03-01 16:27 | CRLHL7_ITS ---
For Patients: As a result of the Century Cures Act, medical imaging exams and procedure reports are released immediately into your electronic medical record. You may view this report before your referring provider. If you have questions, please contact your health care provider. INDICATION: Injury COMPARISON: August 01, 2022 TECHNIQUE: CT examination of the head was performed as axial sections without intravenous contrast. Images were obtained from the vertex of the skull through the skull base. Please note that all CT scans at this facility use dose modulation, iterative reconstruction, and/or weight-based dosing when appropriate to reduce radiation dose to as low as reasonably achievable. FINDINGS: The brain shows no sign of mass lesion, mass effect, hemorrhage, or edema. There are involutional changes. There is mild cortical atrophy and there is mild white matter disease. There is no hydrocephalus. The visualized portions of the orbits are normal in appearance. The osseous structures are normal in appearance with no sign of abnormality in the skull base or calvarium. Encephalomalacia in the left occipital lobe and in the right cerebellar hemisphere consistent with remote infarcts. Similar to the prior examination. IMPRESSION: No acute posttraumatic findings. 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 Please note that all CT scans at this facility use dose modulation, iterative reconstruction, and/or weight-based dosing when appropriate to reduce radiation dose to as low as reasonably achievable. Dictated by Venu Carranza MD @ 03/01/2023 5:01:25 PM (Electronically Signed)
--- OUTSIDE RECORDS SUMMARY | 2023-03-01 16:46 | XMS_ITS | Continuity of Care Document ---
Author Name Unknown Organization [facility] Address [address] [address] [place] [address] Phone Care Team Providers Care Press Leader Name Role Phone Nilay Perry MD Unavailable Unavailable Advance Directives Directive Yes / No Effective Date File Name No Information Encounters Encounter Description Practice Location Reason(s) For Visit Diagnoses Date Provider Providers Copied on Encounter [facility], [address] [address], [place], [place], [id number], [place] tel:[phone] [facility] No Information Orlando Pemberton. [address] [facility] [address] [facility] [address], [place], [place], [id number], [place]. tel:[phone] Referring Provider: Yury Marcial MD, [address] [facility] [address], [place], [address]. tel:[phone] Family History Family Member Type Diagnosis Age At Onset No Information Payers Payer name Insurance type Covered republican ID Authoreaglea tijulio c(s) [place] Medical Assistance [id number] Social History Type Description Quantity Date Captured Comments Sex Female Smoking Status No Information Chief Complaint And Reason For Visit No Information Reason For Referral Reason For Referral No Information Plan Of Treatment Date Type Action Status No Information History Of Present Illness Encounter Date Complaint History Of Prese nt Illness No Information Functional Status Date Functional Assessmen t No Information Instructions Date Instruction Additional Infor mation No Information Assessments Type Assessment Date No Information Patient Care Teams Name Effective Dates (start - stop) Status Members No Information
--- OUTSIDE RECORDS SUMMARY | 2023-03-01 16:46 | XMS_ITS | Continuity of Care Document ---
Author Name Unknown Organization [facility] Address [address], [place] [address] Phone Care Team Providers Care Industrial Maintenance Manager Name Role Phone Su Dang OD Unavailable Unavailab le Allergies, Adverse Reactions, Alerts Substance Reaction Status Criticality acyclovir Unknown Active No Information amoxicillin Unknown Active No Information cefaclor Unknown Active No Information Medications Medication Instructions Dosage Effective Dates (start - stop) Status Comments Estraderm 0.1 mg/24 hr Transderm Patch - Active Amitriptyline 50 mg Tab 1 by mouth daily - Active Pepcid AC 10 mg Tab - Active Estradiol 0.1 mg/24 hr Weekly Transderm Patch - Active Singulair 10 mg Tab 1 by mouth daily - Act lalo Jacy 180 mg Tab 1 by mouth daily - Acti ve Prozac 40 mg Cap - Active Advance Directives Directive Yes / No Effective Date File Name No Information Encounters Encounter Description Practice Location Reason(s) For Visit Diagnoses Date Provider Providers Copied on Encounter [facility], [address] [place] [address], [id number], tel:[phone] [facility] No Information [facility]. [address], [place], [id number], . tel:[phone] Referring Provider: Su Dang, [address] [place], [address]. tel:[phone] [facility], [address], [place], [id number], tel:[phone] [facility] [place] [facility] (chief complaint) No Information [facility]. [address] [place] [address], [id number], . tel:[phone] Referring Provider: Deep Glover, [address] [place] [address], [address]. tel:[phone] Family History Family Member Type Diagnosis Age At Onset No Information Payers Payer name Insurance type Covered republican ID Authoriza tion(s) No Information Social History Type Description Quantity [...]
--- OUTSIDE RECORDS SUMMARY | 2023-03-01 16:46 | XMS_ITS | Continuity of Care Document ---
Author Name Unknown Organization [facility] Address [address] [place] [address] Phone Care Team Providers Care Armed Guard Name Role Phone ZProvider, Conversion Unavailable Unavailabl e Procedures Procedure Date BMI >=30 calcuate w/followup Dxa Bone Density, Axial DXA BONE DENSITY/PERIPHERAL Dxa Bone Density, Vert Fx ROUTINE VENIPUNCTURE TOBACCO USE TXMNT COUNSELING BMI >=30 calcuate w/followup Advance Directives Directive Yes / No Effective Date File Name No Information Encounters Encounter Description Practice Location Reason(s) For Visit Diagnoses Date Provider Providers Copied on Encounter [facility], [address], [place], [place], [id number], [place] tel:[phone] [facility] No Information 4 ZProvider Conversion . . [facility], [address], [place], [place], [id number], [place] tel:[phone] [facility] OBESITY NOSTOBACCO USE DISORDEROSTEOPOROSI S NOS 4 Michele Nara. [address], [address], [place], [place], [id number], [place]. tel:[phone] [facility], [address], [place], [place], [id number], [place] tel:[phone] [facility] Age-related osteoporosis w/o current pathological fracture 4 ZProvider Conversion . . [facility], [address], [place], [place], [id number], [place] tel:[phone] [facility] [place] MALAISE AND FATIGUE NECOBESITY NOSOSTEOPOROSIS NOSTOBACCO USE DISORDER 4 ZProvider Conversion . . [facility], [address], [place], [place], [id number], [place] tel:[phone] [facility] [place] Tobacco useObesity, unspecifiedAge-rela mary osteoporosis w/o current pathological fracture 4 Michele Nara. [address], [address], [place], [place], [id number], [place]. tel:[phone] Family History Family Member Type Diagnosis Age At Onset Problem (finding) Mother Problem (finding) The patient re ports no changes except otherwise noted during the present visit Problem (finding) Father living Problem (finding) Osteoporosis Problem (finding) Number of Sisters Problem (finding) Number of Brothers Payers Payer name Insurance type Covered constitution party ID Authoriza tion(s) No Information Social History [...] No Information Instructions Date Instruction Additional Infor esteban Will need a DXA/VFA for accurate measurement of BMD to direct treatment. Will measure l spine, hip and forearm as suspect L spine measures may not reflect real BMD. Will also obtain osteoporosis labs. She can d/c [facility] for now until we have clarity on her diagnosis.Return to clinic 3 weeks. Related to OSTEOPOROSIS NOS Will need a DXA/VFA for accurate measurement of BMD to direct treatment. Will measure l spine, hip and forearm as suspect L spine measures may not reflect real BMD. Will also obtain osteoporosis labs. She can d/c [facility] for now until we have clarity on her diagnosis.Return to clinic 3 weeks. Related to Age-related osteoporosis w/o current pathological fracture Will need a DXA/VFA for accurate measurement of BMD to direct treatment. Will measure l spine, hip and forearm as suspect L spine measures may not reflect real BMD. Will also obtain osteoporosis labs. She can d/c [facility] for now until we have clarity on her diagnosis.Return to clinic 3 weeks. Related to Age-related osteoporosis w/o current pathological fracture Assessments Type Assessment Date No Information Patient Care Teams Name Effective Dates (start - stop) Status Members No Information
--- OUTSIDE RECORDS SUMMARY | 2023-03-01 16:50 | XMS_ITS | Continuity of Care Document ---
Author Name Unknown Organization [facility] Address [address] [place] [address] Phone Care Team Providers Care Buffing Turner And Counter Name Role Phone ZProvider, Conversion Unavailable Unavailabl [...] Diagnoses Date Provider Providers Copied on Encounter [facility], [address], [place], [place], [id number], [place] tel:[phone] [facility] No Information 4 ZProvider Conversion . . [facility], [address], [place], [place], [id number], [place] tel:[phone] [facility] OBESITY NOSTOBACCO USE DISORDEROSTEOPOROSI S NOS 4 Michele Nara. [address], [address], [place], [place], [id number], [place]. tel:[phone] [facility], [address], [place], [place], [id number], [place] tel:[phone] [facility] Age-related osteoporosis w/o current pathological fracture 4 ZProvider Conversion . . [facility], [address], [place], [place], [id number], [place] tel:[phone] [facility] [place] MALAISE AND FATIGUE NECOBESITY NOSOSTEOPOROSIS NOSTOBACCO USE DISORDER 4 ZProvider Conversion . . [facility], [address], [place], [place], [id number], [place] tel:[phone] [facility] [place] Tobacco useObesity, unspecifiedAge-rela mary osteoporosis w/o current pathological fracture 4 Michele Nara. [address], [address], [place], [place], [id number], [place]. tel:[phone] Family History Family Member Type Diagnosis Age [...]
--- OUTSIDE RECORDS SUMMARY | 2023-03-01 16:50 | XMS_ITS | Continuity of Care Document ---
Author Name Unknown Organization [facility] Address [address], [place] [address] Phone Care Team Providers Care Band Reamer Machine Operator Name Role Phone Su Dang OD Unavailable [...] Tab 1 by mouth daily - Act llao Jacy 180 mg Tab 1 by mouth daily - Acti ve Prozac 40 mg Cap - Active Advance Directives Directive Yes / No Effective Date File Name No Information Encounters Encounter Description Practice Location Reason(s) For Visit Diagnoses Date Provider Providers Copied on Encounter [facility], [address] [place] [address], [id number], tel:[phone] [facility] [employer] No Information Alton Blue. [address], [place], [id number], . tel:[phone] Referring Provider: Su Dang, [address] [place], [address]. tel:[phone] [facility], [address], [place], [id number], tel:[phone] [facility] [place] [facility] (chief complaint) No Information Adalberto Adame. [address] [place] [address], [id number], . tel:[phone] Referring Provider: Deep Glover, [address] [place] [address], [id number]. tel:[phone] Family History Family Member Type Diagnosis Age [...]
--- OUTSIDE RECORDS SUMMARY | 2023-03-01 16:50 | XMS_ITS | Continuity of Care Document ---
Author Name Unknown Organization [facility] Address [address] [address] [place] [address] Phone Care Team Providers Care Strap Folding Machine Operator Name Role Phone Nilay Perry MD Unavailable Unavailable Advance Directives Directive Yes / No Effective Date File Name No Information Encounters Encounter Description Practice Location Reason(s) For Visit Diagnoses Date Provider Providers Copied on Encounter [facility], [address] [address], [place], [place], [id number], [place] tel:[phone] [facility] No Information Orlando Pemberton. [address], [facility] [address], [place], [place], [id number], [place]. tel:[phone] Referring Provider: Yury Marcial MD, [address], [place], [address]. tel:[phone] Family History Family Member Type Diagnosis Age At Onset No Information Payers Payer name Insurance type Covered libertarian ID Authoreaglea tijulio c(s) [place] [employer] [id number] Social History Type Description Quantity Date Captured [...]
[2023-03-01] MEDS: ONDANSETRON 2 MG/ML inj 4 MG IVP (16:51)
[2023-03-01] MEDS: KETOROLAC 30 MG/ML inj IVP (16:51)
[2023-03-01] MEDS: diphenhydrAMINE 50 MG/ML inj 25 MG IVP (16:51)
--- NOTE | 2023-03-01 17:11 | ED.GENADULT ---
HPI - General Adult General Chief complaint: Headache/Migraine Stated complaint: migraine Time Seen by Provider: 03/01/23 15:59 Source: patient Mode of arrival: ambulatory Limitations: no limitations History of Present Illness HPI narrative: 57-year-old female coming in today complaining of a headache that started yesterday. Headache is located in the back of the neck and radiates up to the top of her head. Is located on both sides of the neck. She denies any neurologic deficits. She does state that she is lightheaded. Patient is concerned that she has a ruptured aneurysm. She was told that she had an aneurysm several months ago, per our records it was noted on a CTA in July. She states that she has not had appropriate follow-up. She states that she has no double vision. This is not the worse headache she has ever had. She also tells me that she is very stressed out and begins to cry. She has had no vomiting, no vertigo. Related Data Home Medications Medication Instructions Recorded Confirmed cholecalciferol (vitamin D3) 125 5,000 unit PO DAILY 06/07/22 12/27/22 mcg (5,000 unit) tablet cyanocobalamin (vitamin B-12) 5,000 mcg PO DAILY 06/07/22 12/27/22 2,500 mcg tablet esomeprazole magnesium 40 mg 40 mg PO DAILY 06/07/22 12/27/22 capsule,delayed release oxycodone 5 mg tablet 5 mg PO QID 06/07/22 12/27/22 polyethylene glycol 3350 17 17 g PO QDAY PRN 11/08/22 12/27/22 gram/dose oral powder hydromorphone 4 mg tablet 2 mg PO Q3H 12/27/22 12/27/22 atorvastatin 40 mg tablet 40 mg PO DAILY 02/24/23 02/24/23 oxycodone 10 mg tablet mg PO 02/24/23 02/24/23 ropinirole 2 mg tablet mg PO 02/24/23 02/24/23 Previous Rx's Medication Instructions Recorded acetaminophen 650 mg 1,300 mg PO .Every 8 Hours #180 06/08/22 tablet,extended release tabs lamotrigine 200 mg tablet 200 mg PO BID #60 tabs 06/08/22 valacyclovir 500 mg tablet 500 mg PO DAILY cold sores #90 tabs 06/14/22 aspirin 81 mg tablet,delayed 81 mg PO QDAY #90 tabs 07/23/22 release cetirizine 10 mg tablet (Zyrtec) 10 mg PO QDAY #90 tabs 07/23/22 diazepam 5 mg tablet (Valium) 5 mg PO BID PRN anxiety #60 tabs 08/04/22 diclofenac sodium 1 % topical gel 2 g topical QID #100 grams 08/23/22 triamcinolone acetonide 0.1 % 1 applic topical BID #453.6 grams 08/23/22 topical cream hydrocortisone 1 % topical cream 1 applic topical BID-QID PRN 09/16/22 (Anti-Itch (hydrocortisone)) itching #28.35 grams albuterol sulfate 90 mcg/actuation 2 puff inhalation Q6H PRN 11/08/22 aerosol inhaler (Ventolin HFA) shortness of breath or wheezing #8.5 grams bupropion HCl 150 mg 24 hr tablet, 300 mg PO QAM #60 tabs 11/12/22 extended release (Wellbutrin XL) pregabalin 300 mg capsule 300 mg PO BID #120 caps 11/12/22 rizatriptan 10 mg tablet 10 mg PO ONCE PRN migraine 11/12/22 headache #18 tabs benzonatate 100 mg capsule 100 mg PO TID PRN cough #30 caps 12/27/22 budesonide-formoterol HFA 160 2 puff inhalation BID #10.2 grams 12/27/22 mcg-4.5 mcg/actuation aerosol inhaler (Symbicort) hydroxyzine pamoate 25 mg capsule 25 mg PO Q8H PRN itching #40 caps 12/27/22 magnesium oxide 400 mg (241.3 mg 400 mg PO QDAY #90 tabs 12/27/22 magnesium) tablet quetiapine 50 mg tablet 50 mg PO .Bedtime sleep #30 tabs 01/08/23 meclizine 25 mg tablet (Dramamine 25 mg PO Q8H PRN dizziness #30 tabs 01/19/23 (meclizine)) sumatriptan 5 mg/actuation nasal 5 mg intranasal ONCE PRN migraine 02/11/23 spray headache #6 ea tizanidine 4 mg tablet 4 mg PO Q8H PRN muscle spasticity 02/28/23 #30 tabs Allergies Allergy/AdvReac Type Severity Reaction Status Date / Time acyclovir Allergy Mild rash Verified 12/27/22 10:06 shingles like benzoin Allergy Mild rash, Verified 12/27/22 10:06 blisters, itching Cephalosporins Allergy Mild Rash Verified 12/27/22 10:06 penicillin V Allergy Mild Rash Verified 12/27/22 10:06 adhesive Allergy Unknown contact Verified 12/27/22 10:06 dermatitis to tape amoxicillin Allergy Unknown Rash Verified 12/27/22 10:06 baclofen Allergy Unknown Rash Verified 12/27/22 10:06 cefaclor Allergy Unknown Rash Verified 12/27/22 10:06 chlorhexidine Allergy Unknown contact Verified 12/27/22 10:06 dermatitis fentanyl Allergy Unknown Hallucinati Verified 12/27/22 10:06 ng gabapentin Allergy Unknown muscular Verified 12/27/22 10:06 twitch, slurred speech nortriptyline Allergy Unknown Palpitation Verified 12/27/22 10:06 s NSAIDS (Non-Steroidal Allergy Unknown gastric Verified 12/27/22 10:06 Anti-Inflamma bypass silver Allergy Unknown contact Verified 12/27/22 10:06 dermatitis Milk solids Allergy Intermediate Vomiting Uncoded 12/27/22 10:06 RACHEL Allergy Mild rash Uncoded 12/27/22 10:06 needing early removal Pollen Allergy Unknown runny nose Uncoded 12/27/22 10:06 Soy Allergy Allergy Unknown Uncoded 12/27/22 10:06 Sulfamethoxazole / Allergy Unknown nausea, GI Uncoded 12/27/22 10:06 trimethoprim upset dermbond AdvReac Unknown contact Uncoded 12/27/22 10:06 dermatitis Review of Systems Narrative: ROS is positive for blurry vision on and off which is not new, chronic fatigue. No fevers or chills. [facility] Medical History Allergic rhinitis ?J30.9 - Allergic rhinitis, unspecified (ICD-10) Ataxia due to cerebrovascular disease ?I67.9 - Cerebrovascular disease, unspecified (ICD-10) ?R27.0 - Ataxia, unspecified (ICD-10) Bipolar II disorder ?F31.81 - Bipolar II disorder (ICD-10) Cerebral arteriosclerosis with history of previous cerebrovascular accident ?I67.2 - Cerebral atherosclerosis (ICD-10) ?Z86.73 - Personal history of transient ischemic attack (TIA), and cerebral infarction without residual deficits (ICD-10) Chronic back pain ?M54.9 - Dorsalgia, unspecified (ICD-10) ?G89.29 - Other chronic pain (ICD-10) Chronic neck pain ?M54.2 - Cervicalgia (ICD-10) ?G89.29 - Other chronic pain (ICD-10) Chronic obstructive pulmonary disease ?J44.9 - Chronic obstructive pulmonary disease, unspecified (ICD-10) Continuous opioid dependence (08/27/16) ?F11.20 - Opioid dependence, uncomplicated (ICD-10) Cyclothymic disorder ?F34.0 - Cyclothymic disorder (ICD-10) Fibromyalgia ?M79.7 - Fibromyalgia (ICD-10) ELLEN (generalized anxiety disorder) ?F41.1 - Generalized anxiety disorder (ICD-10) Herpes labialis ?B00.1 - Herpesviral vesicular dermatitis (ICD-10) History of cerebrovascular accident ?Z86.73 - Personal history of transient ischemic attack (TIA), and cerebral infarction without residual deficits (ICD-10) History of skin cancer ?Z85.828 - Personal history of other malignant neoplasm of skin (ICD-10) Migraine ?G43.909 - Migraine, unspecified, not intractable, without status migrainosus (ICD-10) Neuropathy associated with polyneuropathy, organomegaly, endocrinopathy, monoclonal gammopathy, and skin changes syndrome ?E88.09 - Other disorders of plasma-protein metabolism, not elsewhere classified (ICD-10) ?G63 - Polyneuropathy in diseases classified elsewhere (ICD-10) Nicotine dependence ?F17.200 - Nicotine dependence, unspecified, uncomplicated (ICD-10) Polypharmacy ?Z79.899 - Other longterm (current) drug therapy (ICD-10) Posttraumatic stress disorder ?F43.10 - Post-traumatic stress disorder, unspecified (ICD-10) Pyogenic arthritis of left shoulder region (03/25/21) ?M00.9 - Pyogenic arthritis, unspecified (ICD-10) Restless legs syndrome ?G25.81 - Restless legs syndrome (ICD-10) 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) ?I69.398 - Other sequelae of cerebral infarction (ICD-10) ?H54.7 - Unspecified visual loss (ICD-10) Surgical History History of abdominoplasty ?Z98.890 - Other specified postprocedural states (ICD-10) History of arthroplasty of both knees ?Z96.653 - Presence of artificial knee joint, bilateral (ICD-10) History of bilateral cataract extraction ?Z98.41 - Cataract extraction status, right eye (ICD-10) ?Z98.42 - Cataract extraction status, left eye (ICD-10) History of carpal tunnel release of both wrists (2016) ?Z98.890 - Other specified postprocedural states (ICD-10) History of cholecystectomy ?Z90.49 - Acquired absence of other specified parts of digestive tract (ICD-10) History of foot surgery ?Z98.890 - Other specified postprocedural states (ICD-10) History of gastric bypass (1999) ?Z98.84 - Bariatric surgery status (ICD-10) History of left shoulder replacement ?Z96.612 - Presence of left artificial shoulder joint (ICD-10) History of mastopexy ?Z98.890 - Other specified postprocedural states (ICD-10) History of neck surgery ?Z98.890 - Other specified postprocedural states (ICD-10) History of nevus excision ?Z98.890 - Other specified postprocedural states (ICD-10) ?Z87.2 - Personal history of diseases of the skin and subcutaneous tissue (ICD-10) History of sinus surgery ?Z98.890 - Other specified postprocedural states (ICD-10) History of spinal surgery ?Z98.890 - Other specified postprocedural states (ICD-10) History of total hysterectomy with bilateral salpingo-oophorectomy (BSO) ?Z90.710 - Acquired absence of both cervix and uterus (ICD-10) ?Z90.722 - Acquired absence of ovaries, bilateral (ICD-10) ?Z90.79 - Acquired absence of other genital organ(s) (ICD-10) History of tubal ligation ?Z98.51 - Tubal ligation status (ICD-10) Status post insertion of spinal cord stimulator ?Z96.89 - Presence of other specified functional implants (ICD-10) Family History Family/Other Breast cancer Lung cancer Father Cancer Coronary artery disease Sister Congenital heart defect Mother Pancreatic cancer, Onset Age: 60 Social History Narrative: medical marijuana use chronic narcotic use tobacco use Smoking Status: Current every day smoker What tobacco products do you use: cigarettes Smoking quit date/years: <= 15 years ago Do you use any of these nicotine containing products: Vaping Products Second hand tobacco smoke exposure: No How often do you have a drink containing alcohol: never How often do you have six or more drinks on one occasion: Never AUDIT-C Alcohol total score: 0 Non-prescribed substance use: marijuana (any form) Little interest or pleasure in doing things: more than half the days Feeling down, depressed, or hopeless: several days service: No Exam Narrative: Exam Narrative: Well-nourished well-developed patient, tearful. Alert and oriented x3. Answers questions appropriately. No tangential or magical thinking noted. Patient speaks in full sentences without needing to catch her breath. Speech is not slurred or pressured. HEENT: Normocephalic atraumatic. Pupils are equally round reactive to light. Extraocular muscles are intact. Conjunctivae are moist without any icterus noted. Moist mucous membranes. Posterior pharynx is normal. Neck is soft without any lymphadenopathy or thyromegaly. No masses are appreciated. Cardiovascular: Heart is regular rate and rhythm S1 and S2 are present without any murmurs. Lungs: Clear to auscultation bilaterally no wheezes rhonchi or rales are appreciated. Patient takes deep breaths without any discomfort. Abdomen: Soft and nontender nondistended with normal bowel sounds. Extremities: Bilateral lower extremities are without edema. Normal DP and PT pulses. Skin: Well perfused without any obvious rashes. Patient has multiple tattoos including face tattoos. She also has multiple piercings on her face. Strength is 5/5 of the upper and lower extremities. Reflexes are 2+ and symmetric at the knees. Cranial nerves 3-12 are normal. [id number] is normal. [id number] is normal. There is no nystagmus either horizontally or vertically. Gait is normal. Const: Vital Signs, click to edit/add: Vital Signs - 24 hr 03/01/23 15:57 Temperature 96.9 F L Pulse Rate [Pulse Oximeter] 90 Respiratory Rate 18 Blood Pressure [Ri ght Upper Arm] 107/69 Pulse Oximetry 95 Oxygen Delivery Me thod Room Air Course Course Hospital Course: Discussed with the patient the sounds like a tension headache. Patient is adamant this is not tension headache and she tells me that she again is concerned about a ruptured aneurysm. We discussed that her symptoms are not consistent with a ruptured aneurysm. Patient states that she must have a head CT. We discussed that head CT will not show any aneurysm however can show bleeding in the brain. Patient would like to see if there is any intracranial bleeding. We discussed the risks and benefit of imaging including the amount of radiation she has been receiving and risk of cancer, patient states that she would like to proceed with a head CT despite our conversation. Head CT was done in no acute pathology was found. She the patient with IV Toradol, Zofran and Benadryl. Patient tells me that her headache is not any better and she is requesting narcotic pain medication or anything else through an IV. I Discussed with the patient that she is already on narcotic pain medications at home as well as multiple other medications that help with chronic pain. At this time I do not feel that IV narcotic pain medication is appropriate treatment for chronic headaches. Patient tells me that she needs to be transferred to [facility]. I tell her that this is not necessary at this time given her normal physical exam and no new changes on her head CT. She tells me that she already has an appointment scheduled for March for follow-up of her aneurysm. Certainly if she feels that the care she got here is not adequate you she is welcome to see care elsewhere, however I do tell her that I feel that further imaging of her head at this time will not explain her symptoms. Patient is not pleased. Vital Signs Vital signs: Initial Vital Signs Temperature 96.9 F L 03/01/23 15:57 Temperature Source Temporal Artery Scan 03/01/23 15:57 Pulse Rate 90 03/01/23 15:57 Respiratory Rate 18 03/01/23 15:57 Blood Pressure 107/69 03/01/23 15:57 Blood Pressure Mean 81 03/01/23 15:57 Pulse Oximetry 95 03/01/23 15:57 Oxygen Delivery Method Room Air 03/01/23 15:57 Vital Signs Temperature 96.9 F L 03/01/23 15:57 Pulse Rate 90 03/01/23 15:57 Respiratory Rate 18 03/01/23 15:57 Blood Pressure 107/69 03/01/23 15:57 Pulse Oximetry 95 03/01/23 15:57 Oxygen Delivery Method Room Air 03/01/23 15:57 Temperature 96.9 F L 03/01/23 15:57 Pulse Rate 90 03/01/23 15:57 Respiratory Rate 18 03/01/23 15:57 Blood Pressure 107/69 03/01/23 15:57 Pulse Oximetry 95 03/01/23 15:57 Oxygen Delivery Method Room Air 03/01/23 15:57 Medical Decision Making MDM Narrative Medical decision making narrative: 57-year-old female with a headache that is consistent with tension headache or migrainous type of headache. We discussed rest, heating pad to the neck and following up with her neurologist. Medical Records Medical records reviewed: Yes I reviewed the patient's medical records Imaging Data CT scan - head: Attestation: I have reviewed the pertinent imaging results. Radiologist's impression: CT examination of the head was performed as axial sections without intravenous contrast. Images were obtained from the vertex of the skull through the skull base. Please note that all CT scans at this facility use dose modulation, iterative reconstruction, and/or weight-based dosing when appropriate to reduce radiation dose to as low as reasonably achievable. FINDINGS: The brain shows no sign of mass lesion, mass effect, hemorrhage, or edema. There are involutional changes. There is mild cortical atrophy and there is mild white matter disease. There is no hydrocephalus. The visualized portions of the orbits are normal in appearance. The osseous structures are normal in appearance with no sign of abnormality in the skull base or calvarium. Encephalomalacia in the left occipital lobe and in the right cerebellar hemisphere consistent with remote infarcts. Similar to the prior examination. IMPRESSION: No acute posttraumatic findings. 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 Discharge Plan Discharge Clinical Impression: Headache Patient Disposition: Home, Self-Care Condition: Stable Additional Instructions: Recommend you call your neurologist 1st thing in the morning to discuss your symptoms and discuss further management. In the meantime, you can try heating pad to the neck and back of the head, do not apply heat directly to skin. Prescriptions: No Action esomeprazole magnesium 40 mg capsule,delayed release(DR/EC) 40 mg PO DAILY cholecalciferol (vitamin D3) 125 mcg (5,000 unit) tablet 5,000 unit PO DAILY cyanocobalamin (vitamin B-12) 2,500 mcg tablet 5,000 mcg PO DAILY oxycodone 5 mg tablet 5 mg PO QID hydrocortisone [Anti-Itch (HC)] 1 % cream 1 applic topical BID-QID PRN (Reason: itching) Qty: 28.35 0RF ropinirole 2 mg tablet PO atorvastatin 40 mg tablet 40 mg PO DAILY oxycodone 10 mg tablet PO diazepam [Valium] 5 mg tablet 5 mg PO BID PRN (Reason: anxiety) Qty: 60 0RF triamcinolone acetonide 0.1 % cream 1 applic topical BID Qty: 453.6 0RF diclofenac sodium 1 % gel 2 g topical QID Qty: 100 2RF polyethylene glycol 3350 17 gram/dose powder 17 g PO QDAY PRN pregabalin 300 mg capsule 300 mg PO BID Qty: 120 2RF rizatriptan 10 mg tablet 10 mg PO ONCE PRN (Reason: migraine headache) Qty: 18 5RF Rx Instructions: TAKE ONE TAB AT ONSET OF HEADACHE, MAY REPEAT Q2H PRN, MAX 30 MG/24 HRS, must last a month hydromorphone 4 mg tablet 2 mg PO Q3H benzonatate 100 mg capsule 100 mg PO TID PRN (Reason: cough) Qty: 30 1RF hydroxyzine pamoate 25 mg capsule 25 mg PO Q8H PRN (Reason: itching) Qty: 40 1RF magnesium oxide 400 mg (241.3 mg magnesium) tablet 400 mg PO QDAY Qty: 90 3RF budesonide-formoterol [Symbicort] 160-4.5 mcg/actuation HFA aerosol inhaler 2 puff inhalation BID Qty: 10.2 5RF lamotrigine 200 mg tablet 200 mg PO BID Qty: 60 12RF acetaminophen 650 mg tablet extended release 1,300 mg PO .Every 8 Hours Qty: 180 12RF valacyclovir 500 mg tablet 500 mg PO DAILY Qty: 90 3RF aspirin 81 mg tablet,delayed release (DR/EC) 81 mg PO QDAY Qty: 90 3RF cetirizine [Zyrtec] 10 mg tablet 10 mg PO QDAY Qty: 90 3RF albuterol sulfate [Ventolin HFA] 90 mcg/actuation HFA aerosol inhaler 2 puff inhalation Q6H PRN (Reason: shortness of breath or wheezing) Qty: 8.5 2RF bupropion HCl [Wellbutrin XL] 150 mg tablet extended release 24 hr 300 mg PO QAM Qty: 60 5RF quetiapine 50 mg tablet 50 mg PO .Bedtime Qty: 30 5RF meclizine [Dramamine (meclizine)] 25 mg tablet 25 mg PO Q8H PRN (Reason: dizziness) Qty: 30 1RF sumatriptan 5 mg/actuation spray,non-aerosol 5 mg intranasal ONCE PRN (Reason: migraine headache) Qty: 6 5RF Rx Instructions: 1-2 SPRAYS IN ONE NOSTRIL AT ONSET OF HEADACHE, MAY REPEAT Q2H PRN, MAX 4 SPRAYS/24 HRS tizanidine 4 mg tablet 4 mg PO Q8H PRN (Reason: muscle spasticity) Qty: 30 1RF Follow Up/Referrals: Clemente Blackwell MD [Primary Care Provider] - Stand Alone [facility]
== END 2023-03-01 17:35 | disposition home or self-care (01) ==
PROVIDERS: Emergency Provider Family Medicine; PCP Family Medicine
DX: R51.9 Headache, unspecified (principal)
CPT/HCPCS: 70450; 96374; 96375; 99283; 99284; J1200; J1885; J2405

== ENCOUNTER 2023-03-03 15:00 | Outpatient (RCR) | payer MEDICARE, OTHER, SELFPAY | END 2023-06-16 23:59 | disposition home or self-care (01) | PROVIDERS: PCP Family Medicine; Visit Provider Orthopaedic Surgery | DX: Z96.651 Presence of right artificial knee joint (principal); Z51.89 Encounter for other specified aftercare | CPT/HCPCS: 97110; 97140; 97162; 97535 ==

== ENCOUNTER 2023-04-28 11:25 | Outpatient (RCR) | payer MEDICAID, SELFPAY | END 2024-04-27 16:27 | disposition home or self-care (01) | LOC: MOW 11:25 | PROVIDERS: PCP Family Medicine; Visit Provider Family Medicine | DX: Z76.0 Encounter for issue of repeat prescription (principal) | CPT/HCPCS: S5170 ==

== ENCOUNTER 2023-05-13 13:18 | Emergency (ER) | payer MEDICARE, OTHER, SELFPAY ==
[2023-05-13 13:31] VITALS: BP 110/71; PULSE 80; RESP 16; TEMP 36.8; O2SAT 96
[2023-05-13 15:59] LABS: Strep A DNA Probe* NOT DETECTED (Not Detectd)
--- NOTE | 2023-05-13 16:17 | ED.NURSE ---
Discharge instructions provided to pt. Pt verbalized understanding of written instructions. All questions answered.
--- NOTE | 2023-05-17 15:32 | ED.GENADULT ---
HPI - General Adult General Chief complaint: Sore Throat Stated complaint: Feels like throat is swollen, hurts to eat Time Seen by Provider: 05/13/23 14:55 History of Present Illness HPI narrative: Pt here for throat pain and external tenderness to palpation. Reports it is difficult for her to eat and drink. Pain is 8/10 even with my chronic narcotics. Does smoke cigarettes and vape. Is unable to report exactly when symptoms started. No known sick contacts. Of note, pt is drinking a coffee in triage. 58-year-old woman presenting to the emergency department complaint of sore throat. Extensive and complicated past medical. History of extremely high doses of opiates for pain complaints upon transfer of care from [place], now drastically reduced. Sounds like has had a couple of days of increasingly sore throat. No fever. Hurts to swallow. Is not having trouble breathing. No new dental issues. She describes a history of ulcers as well as what sounds like thrush. She is worried that that might be happening again. Related Data Home Medications Medication Instructions Recorded Confirmed cholecalciferol (vitamin D3) 125 5,000 unit PO DAILY 06/07/22 04/04/23 mcg (5,000 unit) tablet cyanocobalamin (vitamin B-12) 5,000 mcg PO DAILY 06/07/22 04/04/23 2,500 mcg tablet polyethylene glycol 3350 17 17 g PO QDAY PRN 11/08/22 04/04/23 gram/dose oral powder oxycodone 10 mg tablet 10 mg PO QID PRN 03/08/23 04/04/23 Previous Rx's Medication Instructions Recorded acetaminophen 650 mg 1,300 mg (2 x 650 mg) PO .Every 8 06/08/22 tablet,extended release Hours #180 tabs lamotrigine 200 mg tablet 200 mg PO BID #60 tabs 06/08/22 valacyclovir 500 mg tablet 500 mg PO DAILY cold sores #90 tabs 06/14/22 aspirin 81 mg tablet,delayed 81 mg PO QDAY #90 tabs 07/23/22 release cetirizine 10 mg tablet (Zyrtec) 10 mg PO QDAY #90 tabs 07/23/22 diclofenac sodium 1 % topical gel 2 g topical QID #100 grams 08/23/22 triamcinolone acetonide 0.1 % 1 applic topical BID #453.6 grams 08/23/22 topical cream hydrocortisone 1 % topical cream 1 applic topical BID-QID PRN 09/16/22 (Anti-Itch (hydrocortisone)) itching #28.35 grams albuterol sulfate 90 mcg/actuation 2 puff inhalation Q6H PRN 11/08/22 aerosol inhaler (Ventolin HFA) shortness of breath or wheezing #8.5 grams rizatriptan 10 mg tablet 10 mg PO ONCE PRN migraine 11/12/22 headache #18 tabs benzonatate 100 mg capsule 100 mg PO TID PRN cough #30 caps 12/27/22 budesonide-formoterol HFA 160 2 puff inhalation BID #10.2 grams 12/27/22 mcg-4.5 mcg/actuation aerosol inhaler (Symbicort) hydroxyzine pamoate 25 mg capsule 25 mg PO Q8H PRN itching #40 caps 12/27/22 magnesium oxide 400 mg (241.3 mg 400 mg PO QDAY #90 tabs 12/27/22 magnesium) tablet meclizine 25 mg tablet (Dramamine 25 mg PO Q8H PRN dizziness #30 tabs 01/19/23 (meclizine)) sumatriptan 5 mg/actuation nasal 5 mg intranasal ONCE PRN migraine 02/11/23 spray headache #6 ea tizanidine 4 mg tablet 4 mg PO Q8H PRN muscle spasticity 02/28/23 #30 tabs atorvastatin 40 mg tablet 40 mg PO DAILY #90 tabs 03/08/23 furosemide 40 mg tablet (Lasix) 40 mg PO QAM #30 tabs 03/15/23 omeprazole 40 mg capsule,delayed 40 mg PO QDAY #30 caps 03/15/23 release bupropion HCl 300 mg 24 hr tablet, 300 mg PO QAM #90 tabs 04/04/23 extended release diazepam 5 mg tablet (Valium) 5 mg PO QDAY PRN anxiety #30 tabs 04/04/23 fluoxetine 40 mg capsule (Prozac) 40 mg PO QAM #30 caps 04/04/23 quetiapine 100 mg tablet 100 mg PO QHS sleep #90 tabs 04/04/23 ropinirole 1 mg tablet 1 mg PO QHS #90 tabs 04/04/23 ondansetron HCl 4 mg tablet 4 mg PO Q6H PRN nausea and 04/05/23 vomiting #30 tabs pregabalin 150 mg capsule 150 mg PO TID #90 caps 04/06/23 Magic Mouthwash 5 - 10 ml PO QID PRN #120 mL 05/13/23 (Lidocaine/Benadryl/Maalox) 120 mL suspension Allergies Allergy/AdvReac Type Severity Reaction Status Date / Time acyclovir Allergy Mild rash Verified 05/13/23 13:34 shingles like benzoin Allergy Mild rash, Verified 05/13/23 13:34 blisters, itching Cephalosporins Allergy Mild Rash Verified 05/13/23 13:34 penicillin V Allergy Mild Rash Verified 05/13/23 13:34 adhesive Allergy Unknown contact Verified 05/13/23 13:34 dermatitis to tape amoxicillin Allergy Unknown Rash Verified 05/13/23 13:34 baclofen Allergy Unknown Rash Verified 05/13/23 13:34 cefaclor Allergy Unknown Rash Verified 05/13/23 13:34 chlorhexidine Allergy Unknown contact Verified 05/13/23 13:34 dermatitis fentanyl Allergy Unknown Hallucinati Verified 05/13/23 13:34 ng gabapentin Allergy Unknown muscular Verified 05/13/23 13:34 twitch, slurred speech nortriptyline Allergy Unknown Palpitation Verified 05/13/23 13:34 s NSAIDS (Non-Steroidal Allergy Unknown gastric Verified 05/13/23 13:34 Anti-Inflamma bypass silver Allergy Unknown contact Verified 05/13/23 13:34 dermatitis Milk solids Allergy Intermediate Vomiting Uncoded 04/04/23 10:06 RACHEL Allergy Mild rash Uncoded 04/04/23 10:06 needing early removal Pollen Allergy Unknown runny nose Uncoded 04/04/23 10:06 Soy Allergy Allergy Unknown Uncoded 04/04/23 10:06 Sulfamethoxazole / Allergy Unknown nausea, GI Uncoded 04/04/23 10:06 trimethoprim upset dermbond AdvReac Unknown contact Uncoded 04/04/23 10:06 dermatitis Review of Systems Status of ROS: Reports: 6 or more systems reviewed and unremarkable except as noted in History and below [facility] Medical History GERD (gastroesophageal reflux disease) ?K21.9 - Gastro-esophageal reflux disease without esophagitis (ICD-10) History of skin cancer ?Z85.828 - Personal history of other malignant neoplasm of skin (ICD-10) ELLEN (generalized anxiety disorder) ?F41.1 - Generalized anxiety disorder (ICD-10) Migraine ?G43.909 - Migraine, unspecified, not intractable, without status migrainosus (ICD-10) Polypharmacy ?Z79.899 - Other manager intermediate (current) drug therapy (ICD-10) Herpes labialis ?B00.1 - Herpesviral vesicular dermatitis (ICD-10) 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) ?I69.398 - Other sequelae of cerebral infarction (ICD-10) ?H54.7 - Unspecified visual loss (ICD-10) Restless legs syndrome ?G25.81 - Restless legs syndrome (ICD-10) Pyogenic arthritis of left shoulder region (03/25/21) ?M00.9 - Pyogenic arthritis, unspecified (ICD-10) Posttraumatic stress disorder ?F43.10 - Post-traumatic stress disorder, unspecified (ICD-10) Nicotine dependence ?F17.200 - Nicotine dependence, unspecified, uncomplicated (ICD-10) Neuropathy associated with polyneuropathy, organomegaly, endocrinopathy, monoclonal gammopathy, and skin changes syndrome ?E88.09 - Other disorders of plasma-protein metabolism, not elsewhere classified (ICD-10) ?G63 - Polyneuropathy in diseases classified elsewhere (ICD-10) History of cerebrovascular accident ?Z86.73 - Personal history of transient ischemic attack (TIA), and cerebral infarction without residual deficits (ICD-10) Fibromyalgia ?M79.7 - Fibromyalgia (ICD-10) Cyclothymic disorder ?F34.0 - Cyclothymic disorder (ICD-10) Continuous opioid dependence (08/27/16) ?F11.20 - Opioid dependence, uncomplicated (ICD-10) Chronic obstructive pulmonary disease ?J44.9 - Chronic obstructive pulmonary disease, unspecified (ICD-10) Chronic neck pain ?M54.2 - Cervicalgia (ICD-10) ?G89.29 - Other chronic pain (ICD-10) Chronic back pain ?M54.9 - Dorsalgia, unspecified (ICD-10) ?G89.29 - Other chronic pain (ICD-10) Cerebral arteriosclerosis with history of previous cerebrovascular accident ?I67.2 - Cerebral atherosclerosis (ICD-10) ?Z86.73 - Personal history of transient ischemic attack (TIA), and cerebral infarction without residual deficits (ICD-10) Bipolar II disorder ?F31.81 - Bipolar II disorder (ICD-10) Ataxia due to cerebrovascular disease ?I67.9 - Cerebrovascular disease, unspecified (ICD-10) ?R27.0 - Ataxia, unspecified (ICD-10) Allergic rhinitis ?J30.9 - Allergic rhinitis, unspecified (ICD-10) Surgical History Status post insertion of spinal cord stimulator ?Z96.89 - Presence of other specified functional implants (ICD-10) History of tubal ligation ?Z98.51 - Tubal ligation status (ICD-10) History of total hysterectomy with bilateral salpingo-oophorectomy (BSO) ?Z90.710 - Acquired absence of both cervix and uterus (ICD-10) ?Z90.722 - Acquired absence of ovaries, bilateral (ICD-10) ?Z90.79 - Acquired absence of other genital organ(s) (ICD-10) History of spinal surgery ?Z98.890 - Other specified postprocedural states (ICD-10) History of sinus surgery ?Z98.890 - Other specified postprocedural states (ICD-10) History of nevus excision ?Z98.890 - Other specified postprocedural states (ICD-10) ?Z87.2 - Personal history of diseases of the skin and subcutaneous tissue (ICD-10) History of neck surgery ?Z98.890 - Other specified postprocedural states (ICD-10) History of mastopexy ?Z98.890 - Other specified postprocedural states (ICD-10) History of left shoulder replacement ?Z96.612 - Presence of left artificial shoulder joint (ICD-10) History of gastric bypass (1999) ?Z98.84 - Bariatric surgery status (ICD-10) History of foot surgery ?Z98.890 - Other specified postprocedural states (ICD-10) History of cholecystectomy ?Z90.49 - Acquired absence of other specified parts of digestive tract (ICD-10) History of carpal tunnel release of both wrists (2017) ?Z98.890 - Other specified postprocedural states (ICD-10) History of bilateral cataract extraction ?Z98.41 - Cataract extraction status, right eye (ICD-10) ?Z98.42 - Cataract extraction status, left eye (ICD-10) History of arthroplasty of both knees ?Z96.653 - Presence of artificial knee joint, bilateral (ICD-10) History of abdominoplasty ?Z98.890 - Other specified postprocedural states (ICD-10) Family History Family/Other Breast cancer Lung cancer Father Cancer Coronary artery disease Sister Congenital heart defect Mother Pancreatic cancer, Onset Age: 60 Social History Narrative: medical marijuana use chronic narcotic use tobacco use Smoking Status: Current every day smoker What tobacco products do you use: cigarettes Smoking quit date/years: <= 15 years ago Do you use any of these nicotine containing products: E-Cigarettes Second hand tobacco smoke exposure: No How often do you have a drink containing alcohol: never How often do you have six or more drinks on one occasion: Never AUDIT-C Alcohol total score: 0 Non-prescribed substance use: marijuana (any form) Little interest or pleasure in doing things: nearly every day Feeling down, depressed, or hopeless: several days service: No Exam Narrative: Exam Narrative: Pleasant. NAD. Breathing easily. No stridor. Lungs appear to be clear without wheeze. Facial swelling or erythema. Oropharynx is moist. Mildly erythematous without asymmetrical swelling. No exudate. No new dental injury or related swelling. Neck supple without lymphadenopathy. TMs are clear. Heart with regular rate and rhythm. I see no ulcers or plaquing. Const: Documenting provider has reviewed patient's vital signs: yes Course Vital Signs Vital signs: Initial Vital Signs Temperature 98.2 F 05/13/23 13:31 Temperature Source Oral 05/13/23 13:31 Pulse Rate 80 05/13/23 13:31 Pulse Rhythm Regular 05/13/23 13:31 Pulse Strength 3+ Normal 05/13/23 13:31 Respiratory Rate 16 05/13/23 13:31 Blood Pressure 110/71 05/13/23 13:31 Blood Pressure Mean 84 05/13/23 13:31 Blood Pressure Position Sitting 05/13/23 13:31 Pulse Oximetry 96 05/13/23 13:31 Oxygen Delivery Method Room Air 05/13/23 13:31 Vital Signs Temperature 98.2 F 05/13/23 13:31 Pulse Rate 80 05/13/23 13:31 Respiratory Rate 16 05/13/23 13:31 Blood Pressure 110/71 05/13/23 13:31 Pulse Oximetry 96 05/13/23 13:31 Oxygen Delivery Method Room Air 05/13/23 13:31 Temperature 98.2 F 05/13/23 13:31 Pulse Rate 80 05/13/23 13:31 Respiratory Rate 16 05/13/23 13:31 Blood Pressure 110/71 05/13/23 13:31 Pulse Oximetry 96 05/13/23 13:31 Oxygen Delivery Method Room Air 05/13/23 13:31 Medical Decision Making MDM Narrative Medical decision making narrative: A seems to be a nonspecific viral pharyngitis. I do not see a dental issue. I doubt presence of strep as well but understand concerns and not unreasonable to check. No evidence of herpetic infection or yeast at this time at least in that there is no plaquing evident. Strep testing was negative. Discussed treatment plans. See patient discharge plan Lab Data Lab results reviewed: Yes I reviewed the patient's lab results Labs: Lab Results 05/13/23 Range/Units 15:04 Group A Strep DNA NOT DETECTED (Not Detectd) Discharge Plan Discharge Clinical Impression: Pharyngitis Patient Disposition: Home, Self-Care Condition: Stable Additional Instructions: Be seen for marked increase in pain, worsening shortness of breath, inability to manage secretions. Can trial this throat/mouthwash for some relief in the meantime. Otherwise might try anesthetic throat lozenges or sprays like Sucrets or Chloraseptic. Prescriptions: New Magic Mouthwash (Lidocaine/Benadryl/Maalox) 120 mL suspension 5 - 10 ml PO QID PRNQty: 120 0RF Rx Instructions: Lidocaine Viscous 2 % mucosal solution 40 mL; Maalox 200 mg-200 mg-20 mg/5 mL oral suspension 40 mL; Benadryl 12.5 mg/5 mL oral elixir 40 mL; Per 120 mL SWISH AND SPIT. MAY COMPOUND IF FIRST PRODUCT IS NOT AVAILABLE. No Action cholecalciferol (vitamin D3) 125 mcg (5,000 unit) tablet 5,000 unit PO DAILY cyanocobalamin (vitamin B-12) 2,500 mcg tablet 5,000 mcg PO DAILY hydrocortisone [Anti-Itch (HC)] 1 % cream 1 applic topical BID-QID PRN (Reason: itching) Qty: 28.35 0RF oxycodone 10 mg tablet 10 mg PO QID PRN ropinirole 1 mg tablet 1 mg PO QHS Qty: 90 3RF bupropion HCl 300 mg tablet extended release 24 hr 300 mg PO QAM Qty: 90 3RF diazepam [Valium] 5 mg tablet 5 mg PO QDAY PRN (Reason: anxiety) Qty: 30 0RF quetiapine 100 mg tablet 100 mg PO QHS Qty: 90 1RF fluoxetine [Prozac] 40 mg capsule 40 mg PO QAM Qty: 30 1RF triamcinolone acetonide 0.1 % cream 1 applic topical BID Qty: 453.6 0RF diclofenac sodium 1 % gel 2 g topical QID Qty: 100 2RF polyethylene glycol 3350 17 gram/dose powder 17 g PO QDAY PRN rizatriptan 10 mg tablet 10 mg PO ONCE PRN (Reason: migraine headache) Qty: 18 5RF Rx Instructions: TAKE ONE TAB AT ONSET OF HEADACHE, MAY REPEAT Q2H PRN, MAX 30 MG/24 HRS, must last a month benzonatate 100 mg capsule 100 mg PO TID PRN (Reason: cough) Qty: 30 1RF hydroxyzine pamoate 25 mg capsule 25 mg PO Q8H PRN (Reason: itching) Qty: 40 1RF magnesium oxide 400 mg (241.3 mg magnesium) tablet 400 mg PO QDAY Qty: 90 3RF budesonide-formoterol [Symbicort] 160-4.5 mcg/actuation HFA aerosol inhaler 2 puff inhalation BID Qty: 10.2 5RF lamotrigine 200 mg tablet 200 mg PO BID Qty: 60 12RF acetaminophen 650 mg tablet extended release 1,300 mg PO .Every 8 Hours Qty: 180 12RF valacyclovir 500 mg tablet 500 mg PO DAILY Qty: 90 3RF aspirin 81 mg tablet,delayed release (DR/EC) 81 mg PO QDAY Qty: 90 3RF cetirizine [Zyrtec] 10 mg tablet 10 mg PO QDAY Qty: 90 3RF albuterol sulfate [Ventolin HFA] 90 mcg/actuation HFA aerosol inhaler 2 puff inhalation Q6H PRN (Reason: shortness of breath or wheezing) Qty: 8.5 2RF meclizine [Dramamine (meclizine)] 25 mg tablet 25 mg PO Q8H PRN (Reason: dizziness) Qty: 30 1RF sumatriptan 5 mg/actuation spray,non-aerosol 5 mg intranasal ONCE PRN (Reason: migraine headache) Qty: 6 5RF Rx Instructions: 1-2 SPRAYS IN ONE NOSTRIL AT ONSET OF HEADACHE, MAY REPEAT Q2H PRN, MAX 4 SPRAYS/24 HRS tizanidine 4 mg tablet 4 mg PO Q8H PRN (Reason: muscle spasticity) Qty: 30 1RF atorvastatin 40 mg tablet 40 mg PO DAILY Qty: 90 1RF furosemide [Lasix] 40 mg tablet 40 mg PO QAM Qty: 30 1RF omeprazole 40 mg capsule,delayed release(DR/EC) 40 mg PO QDAY Qty: 30 5RF ondansetron HCl 4 mg tablet 4 mg PO Q6H PRN (Reason: nausea and vomiting) Qty: 30 2RF pregabalin 150 mg capsule 150 mg PO TID Qty: 90 5RF Follow Up/Referrals: Clemente Blackwell MD [Primary Care Provider] - Stand Alone Forms: [facility] Info Instructions
== END 2023-05-13 16:16 | disposition home or self-care (01) ==
PROVIDERS: Emergency Provider Family Medicine; PCP Family Medicine
DX: J02.9 Acute pharyngitis, unspecified (principal)
CPT/HCPCS: 87651; 99282; 99283; 99284

== ENCOUNTER 2023-07-12 14:46 | Emergency (ER) | payer MEDICARE, OTHER, SELFPAY ==
[2023-07-12 15:27] VITALS: BP 92/60; PULSE 80; RESP 16; TEMP 36.2; O2SAT 96; BMI 28.3
--- NOTE | 2023-07-12 18:31 | ED.GENADULT ---
HPI - General Adult General Chief complaint: Unspecified Complaint, Adult Stated complaint: ingrown hair and cut on toe Time Seen by Provider: 07/12/23 18:25 History of Present Illness HPI narrative: This 58-year-old female comes in with a painful left great toenail that is cutting into her toe bilaterally on the edges. She states that she has had this toenail removed in the past but it has grown back in similar curved forearm and is cutting in again. She states that she could not get an appointment in the clinic for a week and a half and she comes here wanting to have her toenail removed. Related Data Home Medications Medication Instructions Recorded Confirmed cholecalciferol (vitamin D3) 125 5,000 unit PO DAILY 06/07/22 06/17/23 mcg (5,000 unit) tablet cyanocobalamin (vitamin B-12) 5,000 mcg PO DAILY 06/07/22 06/17/23 2,500 mcg tablet polyethylene glycol 3350 17 17 g PO QDAY PRN 11/08/22 06/17/23 gram/dose oral powder oxycodone 10 mg tablet 10 mg PO QID PRN 03/08/23 06/17/23 Previous Rx's Medication Instructions Recorded acetaminophen 650 mg 1,300 mg (2 x 650 mg) PO .Every 8 06/08/22 tablet,extended release Hours #180 tabs aspirin 81 mg tablet,delayed 81 mg PO QDAY #90 tabs 07/23/22 release diclofenac sodium 1 % topical gel 2 g topical QID #100 grams 08/23/22 triamcinolone acetonide 0.1 % 1 applic topical BID #453.6 grams 08/23/22 topical cream hydrocortisone 1 % topical cream 1 applic topical BID-QID PRN 09/16/22 (Anti-Itch (hydrocortisone)) itching #28.35 grams benzonatate 100 mg capsule 100 mg PO TID PRN cough #30 caps 12/27/22 budesonide-formoterol HFA 160 2 puff inhalation BID #10.2 grams 12/27/22 mcg-4.5 mcg/actuation aerosol inhaler (Symbicort) hydroxyzine pamoate 25 mg capsule 25 mg PO Q8H PRN itching #40 caps 12/27/22 magnesium oxide 400 mg (241.3 mg 400 mg PO QDAY #90 tabs 12/27/22 magnesium) tablet meclizine 25 mg tablet (Dramamine 25 mg PO Q8H PRN dizziness #30 tabs 01/19/23 (meclizine)) sumatriptan 5 mg/actuation nasal 5 mg intranasal ONCE PRN migraine 02/11/23 spray headache #6 ea tizanidine 4 mg tablet 4 mg PO Q8H PRN muscle spasticity 02/28/23 #30 tabs atorvastatin 40 mg tablet 40 mg PO DAILY #90 tabs 03/08/23 omeprazole 40 mg capsule,delayed 40 mg PO QDAY #30 caps 03/15/23 release bupropion HCl 300 mg 24 hr tablet, 300 mg PO QAM #90 tabs 04/04/23 extended release diazepam 5 mg tablet (Valium) 5 mg PO QDAY PRN anxiety #30 tabs 04/04/23 quetiapine 100 mg tablet 100 mg PO QHS sleep #90 tabs 04/04/23 ropinirole 1 mg tablet 1 mg PO QHS #90 tabs 04/04/23 ondansetron HCl 4 mg tablet 4 mg PO Q6H PRN nausea and 04/05/23 vomiting #30 tabs Magic Mouthwash 5 - 10 ml PO QID PRN #120 mL 05/13/23 (Lidocaine/Benadryl/Maalox) 120 mL suspension fluoxetine 40 mg capsule (Prozac) 40 mg PO QAM #90 caps 05/30/23 furosemide 40 mg tablet (Lasix) 40 mg PO QAM #30 tabs 05/30/23 valacyclovir 500 mg tablet 500 mg PO DAILY cold sores #90 tabs 05/30/23 pregabalin 150 mg capsule 150 mg PO TID #90 caps 06/03/23 cetirizine 10 mg tablet (Zyrtec) 10 mg PO QDAY #90 tabs 06/30/23 lamotrigine 200 mg tablet 200 mg PO BID #60 tabs 06/30/23 albuterol sulfate 90 mcg/actuation 2 puff inhalation Q6H PRN 07/06/23 aerosol inhaler (Ventolin HFA) shortness of breath or wheezing #8.5 grams rizatriptan 10 mg tablet 10 mg PO ONCE PRN migraine 07/06/23 headache #18 tabs Allergies Allergy/AdvReac Type Severity Reaction Status Date / Time acyclovir Allergy Mild rash Verified 06/17/23 10:04 shingles like benzoin Allergy Mild rash, Verified 06/17/23 10:04 blisters, itching Cephalosporins Allergy Mild Rash Verified 06/17/23 10:04 penicillin V Allergy Mild Rash Verified 06/17/23 10:04 adhesive Allergy Unknown contact Verified 06/17/23 10:04 dermatitis to tape amoxicillin Allergy Unknown Rash Verified 06/17/23 10:04 baclofen Allergy Unknown Rash Verified 06/17/23 10:04 cefaclor Allergy Unknown Rash Verified 06/17/23 10:04 chlorhexidine Allergy Unknown contact Verified 06/17/23 10:04 dermatitis fentanyl Allergy Unknown Hallucinati Verified 06/17/23 10:04 ng gabapentin Allergy Unknown muscular Verified 06/17/23 10:04 twitch, slurred speech nortriptyline Allergy Unknown Palpitation Verified 06/17/23 10:04 s NSAIDS (Non-Steroidal Allergy Unknown gastric Verified 06/17/23 10:04 Anti-Inflamma bypass silver Allergy Unknown contact Verified 06/17/23 10:04 dermatitis Milk solids Allergy Intermediate Vomiting Uncoded 06/17/23 10:04 RACHEL Allergy Mild rash Uncoded 06/17/23 10:04 needing early removal Pollen Allergy Unknown runny nose Uncoded 06/17/23 10:04 Soy Allergy Allergy Unknown Uncoded 06/17/23 10:04 Sulfamethoxazole / Allergy Unknown nausea, GI Uncoded 06/17/23 10:04 trimethoprim upset dermbond AdvReac Unknown contact Uncoded 06/17/23 10:04 dermatitis Review of Systems Status of ROS: Reports: 10 or more systems reviewed and unremarkable except as noted in History and below Narrative: Constitutional: No fevers, no weight gain or loss. Eyes: No discharge. No vision changes. HENT: No congestion, no sore throat, no ear pain. Cardiovascular: No chest pain, no palpitations. Respiratory: No shortness of breath, no wheezes, no cough. Gastrointestinal: No abdominal pain, no vomiting, no diarrhea. Genitourinary: No dysuria, no hematuria. Musculoskeletal: Normal range of motion. Skin: No rashes, no pruritis. Neurological: No dizziness, weakness, sensory change, speech change. Endo/Heme/Allergies: No bruising or bleeding. No polydipsia. Pysch: no suicidality, no anxiety, no insomnia. All other systems reviewed and are negative. [facility] Medical History GERD (gastroesophageal reflux disease) ?K21.9 - Gastro-esophageal reflux disease without esophagitis (ICD-10) History of skin cancer ?Z85.828 - Personal history of other malignant neoplasm of skin (ICD-10) ELLEN (generalized anxiety disorder) ?F41.1 - Generalized anxiety disorder (ICD-10) Migraine ?G43.909 - Migraine, unspecified, not intractable, without status migrainosus (ICD-10) Polypharmacy ?Z79.899 - Other care home (current) drug therapy (ICD-10) Herpes labialis ?B00.1 - Herpesviral vesicular dermatitis (ICD-10) 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) ?I69.398 - Other sequelae of cerebral infarction (ICD-10) ?H54.7 - Unspecified visual loss (ICD-10) Restless legs syndrome ?G25.81 - Restless legs syndrome (ICD-10) Pyogenic arthritis of left shoulder region (03/25/21) ?M00.9 - Pyogenic arthritis, unspecified (ICD-10) Posttraumatic stress disorder ?F43.10 - Post-traumatic stress disorder, unspecified (ICD-10) Nicotine dependence ?F17.200 - Nicotine dependence, unspecified, uncomplicated (ICD-10) Neuropathy associated with polyneuropathy, organomegaly, endocrinopathy, monoclonal gammopathy, and skin changes syndrome ?E88.09 - Other disorders of plasma-protein metabolism, not elsewhere classified (ICD-10) ?G63 - Polyneuropathy in diseases classified elsewhere (ICD-10) History of cerebrovascular accident ?Z86.73 - Personal history of transient ischemic attack (TIA), and cerebral infarction without residual deficits (ICD-10) Fibromyalgia ?M79.7 - Fibromyalgia (ICD-10) Cyclothymic disorder ?F34.0 - Cyclothymic disorder (ICD-10) Continuous opioid dependence (08/27/16) ?F11.20 - Opioid dependence, uncomplicated (ICD-10) Chronic obstructive pulmonary disease ?J44.9 - Chronic obstructive pulmonary disease, unspecified (ICD-10) Chronic neck pain ?M54.2 - Cervicalgia (ICD-10) ?G89.29 - Other chronic pain (ICD-10) Chronic back pain ?M54.9 - Dorsalgia, unspecified (ICD-10) ?G89.29 - Other chronic pain (ICD-10) Cerebral arteriosclerosis with history of previous cerebrovascular accident ?I67.2 - Cerebral atherosclerosis (ICD-10) ?Z86.73 - Personal history of transient ischemic attack (TIA), and cerebral infarction without residual deficits (ICD-10) Bipolar II disorder ?F31.81 - Bipolar II disorder (ICD-10) Ataxia due to cerebrovascular disease ?I67.9 - Cerebrovascular disease, unspecified (ICD-10) ?R27.0 - Ataxia, unspecified (ICD-10) Allergic rhinitis ?J30.9 - Allergic rhinitis, unspecified (ICD-10) Surgical History Status post insertion of spinal cord stimulator ?Z96.89 - Presence of other specified functional implants (ICD-10) History of tubal ligation ?Z98.51 - Tubal ligation status (ICD-10) History of total hysterectomy with bilateral salpingo-oophorectomy (BSO) ?Z90.710 - Acquired absence of both cervix and uterus (ICD-10) ?Z90.722 - Acquired absence of ovaries, bilateral (ICD-10) ?Z90.79 - Acquired absence of other genital organ(s) (ICD-10) History of spinal surgery ?Z98.890 - Other specified postprocedural states (ICD-10) History of sinus surgery ?Z98.890 - Other specified postprocedural states (ICD-10) History of nevus excision ?Z98.890 - Other specified postprocedural states (ICD-10) ?Z87.2 - Personal history of diseases of the skin and subcutaneous tissue (ICD-10) History of neck surgery ?Z98.890 - Other specified postprocedural states (ICD-10) History of mastopexy ?Z98.890 - Other specified postprocedural states (ICD-10) History of left shoulder replacement ?Z96.612 - Presence of left artificial shoulder joint (ICD-10) History of gastric bypass (1999) ?Z98.84 - Bariatric surgery status (ICD-10) History of foot surgery ?Z98.890 - Other specified postprocedural states (ICD-10) History of cholecystectomy ?Z90.49 - Acquired absence of other specified parts of digestive tract (ICD-10) History of carpal tunnel release of both wrists (2017) ?Z98.890 - Other specified postprocedural states (ICD-10) History of bilateral cataract extraction ?Z98.41 - Cataract extraction status, right eye (ICD-10) ?Z98.42 - Cataract extraction status, left eye (ICD-10) History of arthroplasty of both knees ?Z96.653 - Presence of artificial knee joint, bilateral (ICD-10) History of abdominoplasty ?Z98.890 - Other specified postprocedural states (ICD-10) Family History Family/Other Breast cancer Lung cancer Father Cancer Coronary artery disease Sister Congenital heart defect Mother Pancreatic cancer, Onset Age: 60 Social History Narrative: medical marijuana use chronic narcotic use tobacco use Smoking Status: Current every day smoker What tobacco products do you use: cigarettes Smoking quit date/years: <= 15 years ago Do you use any of these nicotine containing products: E-Cigarettes Second hand tobacco smoke exposure: No How often do you have a drink containing alcohol: never How often do you have six or more drinks on one occasion: Never AUDIT-C Alcohol total score: 0 Non-prescribed substance use: marijuana (any form) Little interest or pleasure in doing things: nearly every day Feeling down, depressed, or hopeless: several days service: No Exam Narrative: Exam Narrative: Constitutional: Well-developed, well-nourished, no acute distress. HEENT: Normocephalic, atraumatic. Neck: Normal range of motion. Nontender. Supple. Heart: Intact distal pulses. Lungs: No chest discomfort. No wheezes, rhonchi, or rales. Abdomen: Nontender. Back: Normal range of motion. Extremities: Normal range of motion. The left great toenail is curved and appears to be cutting into the skin of her toe on its edges. There is some blood in this area but no sign of infection or significant swelling or erythema. Skin: Intact. No rash. Warm. No erythema or pallor. Neurologic: No altered sensation. No weakness. Alert and oriented. Psychiatric: No suicidality. No anxiety or depression. No insomnia. Nursing notes and vitals signs are reviewed. Const: Vital Signs, click to edit/add: Vital Signs - 24 hr 07/12/23 15:27 07/12/23 18:40 Temperature 97.1 F L Pulse Rate [Right Pulse Oximeter] 80 57 L Respiratory Rate 16 20 Blood Pressure [Ri ght Upper Arm] 92/60 135/68 Pulse Oximetry 96 97 Oxygen Delivery Me thod Room Air Room Air Course Vital Signs Vital signs: Initial Vital Signs Temperature 97.1 F L 07/12/23 15:27 Temperature Source Temporal Artery Scan 07/12/23 15:27 Pulse Rate 80 07/12/23 15:27 Pulse Rhythm Regular 07/12/23 15:27 Respiratory Rate 16 07/12/23 15:27 Blood Pressure 92/60 07/12/23 15:27 Blood Pressure Mean 70 07/12/23 15:27 Blood Pressure Position Sitting 07/12/23 15:27 Pulse Oximetry 96 07/12/23 15:27 Oxygen Delivery Method Room Air 07/12/23 15:27 Vital Signs Temperature 97.1 F L 07/12/23 15:27 Pulse Rate 80 07/12/23 15:27 Respiratory Rate 16 07/12/23 15:27 Blood Pressure 92/60 07/12/23 15:27 Pulse Oximetry 96 07/12/23 15:27 Oxygen Delivery Method Room Air 07/12/23 15:27 Temperature 97.1 F L 07/12/23 15:27 Pulse Rate 57 L 07/12/23 18:40 Respiratory Rate 20 07/12/23 18:40 Blood Pressure 135/68 07/12/23 18:40 Pulse Oximetry 97 07/12/23 18:40 Oxygen Delivery Method Room Air 07/12/23 18:40 Medical Decision Making MDM Narrative Medical decision making narrative: This patient is presenting here asking to have her left great toenail removed as it is cutting into her skin on her toe. The patient did receive a digital block using Marcaine 0.25%. This brought complete relief of her pain as the procedure of removing her toenail occurred. I used a #15 blade to separate the nail from the nail bed and used a needle compressed air pile driver operator to grab onto the nail in lifted off of her toe. This was a rather easy procedure and the patient did not have any discomfort. The whole toenail was completely removed and a dressing was applied over the toe. She is instructed to follow-up with Podiatry or her primary physician for ongoing management. Discharge Plan Discharge Clinical Impression: Ingrowing toenail of left foot Patient Disposition: Home, Self-Care Condition: Stable Additional Instructions: Keep wound covered. Follow-up with podiatry clinic or primary physician. Return if worsening. Prescriptions: No Action cholecalciferol (vitamin D3) 125 mcg (5,000 unit) tablet 5,000 unit PO DAILY cyanocobalamin (vitamin B-12) 2,500 mcg tablet 5,000 mcg PO DAILY hydrocortisone [Anti-Itch (HC)] 1 % cream 1 applic topical BID-QID PRN (Reason: itching) Qty: 28.35 0RF oxycodone 10 mg tablet 10 mg PO QID PRN ropinirole 1 mg tablet 1 mg PO QHS Qty: 90 3RF bupropion HCl 300 mg tablet extended release 24 hr 300 mg PO QAM Qty: 90 3RF diazepam [Valium] 5 mg tablet 5 mg PO QDAY PRN (Reason: anxiety) Qty: 30 0RF quetiapine 100 mg tablet 100 mg PO QHS Qty: 90 1RF triamcinolone acetonide 0.1 % cream 1 applic topical BID Qty: 453.6 0RF diclofenac sodium 1 % gel 2 g topical QID Qty: 100 2RF polyethylene glycol 3350 17 gram/dose powder 17 g PO QDAY PRN benzonatate 100 mg capsule 100 mg PO TID PRN (Reason: cough) Qty: 30 1RF hydroxyzine pamoate 25 mg capsule 25 mg PO Q8H PRN (Reason: itching) Qty: 40 1RF magnesium oxide 400 mg (241.3 mg magnesium) tablet 400 mg PO QDAY Qty: 90 3RF budesonide-formoterol [Symbicort] 160-4.5 mcg/actuation HFA aerosol inhaler 2 puff inhalation BID Qty: 10.2 5RF Magic Mouthwash (Lidocaine/Benadryl/Maalox) 120 mL suspension 5 - 10 ml PO QID PRNQty: 120 0RF Rx Instructions: Lidocaine Viscous 2 % mucosal solution 40 mL; Maalox 200 mg-200 mg-20 mg/5 mL oral suspension 40 mL; Benadryl 12.5 mg/5 mL oral elixir 40 mL; Per 120 mL SWISH AND SPIT. MAY COMPOUND IF FIRST PRODUCT IS NOT AVAILABLE. acetaminophen 650 mg tablet extended release 1,300 mg PO .Every 8 Hours Qty: 180 12RF aspirin 81 mg tablet,delayed release (DR/EC) 81 mg PO QDAY Qty: 90 3RF meclizine [Dramamine (meclizine)] 25 mg tablet 25 mg PO Q8H PRN (Reason: dizziness) Qty: 30 1RF sumatriptan 5 mg/actuation spray,non-aerosol 5 mg intranasal ONCE PRN (Reason: migraine headache) Qty: 6 5RF Rx Instructions: 1-2 SPRAYS IN ONE NOSTRIL AT ONSET OF HEADACHE, MAY REPEAT Q2H PRN, MAX 4 SPRAYS/24 HRS tizanidine 4 mg tablet 4 mg PO Q8H PRN (Reason: muscle spasticity) Qty: 30 1RF atorvastatin 40 mg tablet 40 mg PO DAILY Qty: 90 1RF omeprazole 40 mg capsule,delayed release(DR/EC) 40 mg PO QDAY Qty: 30 5RF ondansetron HCl 4 mg tablet 4 mg PO Q6H PRN (Reason: nausea and vomiting) Qty: 30 2RF fluoxetine [Prozac] 40 mg capsule 40 mg PO QAM Qty: 90 3RF valacyclovir 500 mg tablet 500 mg PO DAILY Qty: 90 3RF furosemide [Lasix] 40 mg tablet 40 mg PO QAM Qty: 30 1RF pregabalin 150 mg capsule 150 mg PO TID Qty: 90 5RF lamotrigine 200 mg tablet 200 mg PO BID Qty: 60 12RF cetirizine [Zyrtec] 10 mg tablet 10 mg PO QDAY Qty: 90 3RF albuterol sulfate [Ventolin HFA] 90 mcg/actuation HFA aerosol inhaler 2 puff inhalation Q6H PRN (Reason: shortness of breath or wheezing) Qty: 8.5 2RF rizatriptan 10 mg tablet 10 mg PO ONCE PRN (Reason: migraine headache) Qty: 18 2RF Rx Instructions: TAKE ONE TAB AT ONSET OF HEADACHE, MAY REPEAT Q2H PRN, MAX 30 MG/24 HRS, must last a month Follow Up/Referrals: Clemente Blackwell MD [Primary Care Provider] - Stand Alone Forms: [place] Info Instructions
[2023-07-12 18:40] VITALS: BP 135/68; PULSE 57; RESP 20; O2SAT 97
[2023-07-12] MEDS: ACETAMINOPHEN 500 MG TABLET 1000 MG PO (18:40)
== END 2023-07-12 20:22 | disposition home or self-care (01) ==
PROVIDERS: Emergency Provider Emergency Medicine Emergency Medical Services; PCP Family Medicine
DX: L60.0 Ingrowing nail (principal)
CPT/HCPCS: 11730; 11750; 99283; 99284; A9270

== ENCOUNTER 2023-07-29 10:55 | Outpatient (CLI) | payer MEDICARE, OTHER, SELFPAY ==
--- OUTSIDE RECORDS SUMMARY | 2023-07-29 10:59 | XMS_ITS | Continuity of Care Document ---
Author Name Unknown Organization [facility] Address [address] [place] [address] Phone Care Team Providers Care Millinery Blocker Name Role Phone ZProvider, Conversion Unavailable Unavailabl [...] Diagnoses Date Provider Providers Copied on Encounter [facility], [address], [place], [place], [id number], [place] tel:[phone] [facility] No Information 4 ZProvider Conversion . . [facility], [address], [place], [place], [id number], [place] tel:[phone] [facility] OBESITY NOSTOBACCO USE DISORDEROSTEOPOROSI S NOS 4 Michele Nara. [address], [address], [place], [place], [id number], [place]. tel:[phone] [facility], [address], [place], [place], [id number], [place] tel:[phone] [facility] Age-related osteoporosis w/o current pathological fracture 4 ZProvider Conversion . . [facility], [address], [place], [place], [id number], [place] tel:[phone] [facility] MALAISE AND FATIGUE NECOBESITY NOSOSTEOPOROSIS NOSTOBACCO USE DISORDER 4 ZProvider Conversion . . [facility], [address], [place], [place], [id number], [place] tel:[phone] [facility] [place] Tobacco useObesity, unspecifiedAge-rela mary osteoporosis w/o current pathological fracture 4 Michele Nara. [address], [address], [place], [place], [id number], [place]. tel:[phone] Family History Family Member Type Diagnosis Age At Onset Problem (finding) Mother Problem (finding) The patient re ports no changes except otherwise noted during the present visit Problem (finding) Father living Problem (finding) Osteoporosis Problem (finding) Number of Sisters Problem (finding) Number of Brothers Payers Payer name Insurance type Covered democrat ID Authoriza tion(s) No Information Social History Type Description Quantity Date Captured Comments Alcohol Use Details Unknown Caffeine Use Details Unknown Tobacco Use Status No Information Smoking Status No Information Sex Female Chief Complaint And Reason For Visit No Information Reason For Referral Reason For Referral No Information History Of Present Illness Encounter Date Complaint History Of Prese nt Illness No Information Functional Status Date Functional Assessmen t No Information Instructions Date Instruction Additional Infor mation Will need a DXA/VFA for accurate measurement [...]
--- OUTSIDE RECORDS SUMMARY | 2023-07-29 10:59 | XMS_ITS | Continuity of Care Document ---
Author Name Unknown Organization [facility] Address [address] [place] [address] Phone Care Team Providers Care Tank Wagon Operator Name Role Phone Ezequiel Christensen MD Unavailable Unavailab le Allergies, Adverse Reactions, Alerts Substance Reaction Status Criticality NSAIDS (Non-Steroidal Anti-I nflammatory Drug) unknown Active No Information nortriptyline palpitations Active No Information morphine rashes/ headaches Active No Informa tion gabapentin uknown Active No Information cefaclor rashes Active No Information benzoin unknown Active No Information AMOXICILLIN TRIHYDRATE rashes Active No In formation adhesive contact dermatitis Active No Inform ation acyclovir rashes Active No Information Medications Medication Instructions Dosage Effective Dates (start - stop) Status Comments PROZAC (unknown strength) Not Available - Active ZONEGRAN (unknown strength) Not Available - Active VALTREX (unknown strength) Not Available - Active SYMBICORT (unknown strength) Not Available - Active SPIRIVA RESPIMAT (unknown strength) Not Available - Active INDERAL LA (unknown strength) Not Available - Active SENOKOT-S (unknown strength) Not Available - Active Miralax 17 gram/dose oral powder - Active OXYCODONE HCL (unknown strength) Not Available - Active ZOFRAN ODT (unknown strength) Not Available - Active METHOCARBAMOL (unknown strength) Not Available - Active LIDOCARE (unknown strength) Not Available - Active NEXIUM (unknown strength) Not Available - Active LAMICTAL (unknown strength) Not Available - Active CHILD MUCINEX CHEST MINI-MELTS (unknown strength) Not Available - Active LASIX (unknown strength) Not Available - Active Flonase Allergy Relief 50 mcg/actuation nasal spray,suspension - Active IRON (unknown strength) Not Available - Ac tive COMBIVENT RESPIMAT (unknown strength) Not Available - Active VITAMIN D3 (unknown strength) Not Available - Active TESSALON PERLE (unknown strength) Not Available - Active Proventil HFA 90 mcg/actuation aerosol inhaler - Active Procedures Procedure Date Office/Outpatient Visit,Est, Mod 2016 Office/Outpatient Visit,New, Mod 2016 Advance Directives Directive Yes / No Effective Date File Name No Information Encounters Encounter Description Practice Location Reason(s) For Visit Diagnoses Date Provider Providers Copied on Encounter [facility], [address] [place] [id number], [place] tel:[phone] [facility] [place] No Information [facility], [address] [place] [address], [address], [place], [place], [id number] , [place]. [phone] Office/Outpat ient Visit,Est, Mod [facility], [address], [facility] [place], [id number], [place] tel:[phone] [facility] Spinal stenosis, lumbar region [facility], [address] [place] [address], [address], [place], [place], [id number] , [place]. tel: [phone] Referring Provider: Amna Fletcher, [address], [address]. tel:[phone] Office/Outpat ient Visit,New, [facility], [address], [place], [place], [id number], [place] tel:[phone] [facility] Spinal stenosis, lumbar regionLow back painCervicalgia 7 [facility], [address] [place] [address], [address], [place], [place], [address] , [place]. tel:[phone] Referring Provider: Amna Fletcher [address], [address]. tel:[phone] Family History Family Member Type Diagnosis Age At Onset No Information Payers Payer name Insurance type Covered republican ID Chester aguillon(s) Medicare MB [id number] Social History Type Description Quantity Date Captured [...] Information Instructions Date Instruction Additional Infor mation Weight Management Education Rela mary to Overweight Weight management: I nstructed to return to General Practitioner timeframe: 1 Month. Related to Overweight Weight Management Education Rela mary to Overweight Weight management: I nstructed to return to General Practitioner timeframe: 1 Month. Related to Overweight Assessments Type Assessment Date No Information Patient Care Teams Name Effective Dates (start - stop) Status Members No Information
--- OUTSIDE RECORDS SUMMARY | 2023-07-29 10:59 | XMS_ITS | Continuity of Care Document ---
Author Name Unknown Organization [facility] Address [address] [address] Phone Care Team Providers Care Lead Solutions Architect Name Role Phone Su Dang OD Unavailable [...] Diagnoses Date Provider Providers Copied on Encounter [facility], [address] [place] [address], [id number], tel:[phone] [facility] [place] No Information [facility]. [address], [place], [id number], . tel:[phone] Referring Provider: Su Dang, [address] [place], [address]. tel:[phone] [facility], [address], [place], [id number], tel:[phone] [facility] [place] Blurred Vision (chief complaint) No Information [facility]. [address] [place] [address], [id number], . tel:[phone] Referring Provider: Deep Glover, [address] [place] [address], [id number]. tel:[phone] Family History Family Member Type Diagnosis Age [...]
== END 2023-07-29 10:56 | disposition home or self-care (01) ==
PROVIDERS: PCP Family Medicine; Visit Provider Family Medicine
DX: R63.5 Abnormal weight gain (principal); F41.1 Generalized anxiety disorder
CPT/HCPCS: 80048; 84443

== ENCOUNTER 2023-08-16 06:41 | Day surgery (SDC) | payer MEDICARE, OTHER, SELFPAY ==
[2023-08-16] MEDS: LACTATED RINGERS 1000 ML 1,000 ML 100 ML IV (06:55)
[2023-08-16] MEDS: SODIUM CHLORIDE 0.9 % (FLUSH) 10 ML SYRINGE IVF (07:08)
[2023-08-16 07:09] VITALS: BP 121/82; PULSE 75; RESP 16; TEMP 36.9; O2SAT 95; BMI 32.8
[2023-08-16] MEDS: lidocaine HCL 2 % MULTIDOSE 20 ML VIAL 12 ML INJECTION (08:07)
[2023-08-16] MEDS: BUPIVACAINE 0.5% 30 ML 8 ML INJECTION (08:07)
--- NOTE | 2023-08-16 08:11 | SUR.OPER ---
PATIENT QUESTIONS ANSWERED SATISFACTORILY PREOPERATIVELY.? PATIENT BROUGHT TO OR #3 PER SDS CART.? Patient positioned supine on OR #3 bed.? The perioperative?team supported arms bilaterally on arm boards. Final approval of positioning by surgeon.? PRIOR TO LOCAL INJECTION, TIME OUT PREFORMED AT 078:03.
[2023-08-16] MEDS: CEFAZOLIN 2 GM INJ IVP (08:40)
[2023-08-16 09:50] VITALS: BP 123/81; PULSE 76; RESP 16; TEMP 36.2; O2SAT 95
--- NOTE | 2023-08-16 09:53 | W.ANESCHARGE ---
Anesthesia Charges Start Date/Time Anesthesia Start Date: 08/16/23 Anesthesia Start Time: 08:03 Stop Date/Time Anesthesia Stop Date: 08/16/23 Anesthesia Stop Time: 09:48
[2023-08-16 10:00] VITALS: BP 125/85; PULSE 77; RESP 16; O2SAT 96
[2023-08-16 10:15] VITALS: BP 126/80; PULSE 75; RESP 16; O2SAT 96
--- NOTE | 2023-08-16 14:01 | P.ORPRC_ITS ---
Procedure Note Date of procedure: 08/16/23 Procedure: Preop diagnosis: Recurrent Right upper extremity carpal tunnel syndrome, middle finger stenosing tenosynovitis for Postop diagnosis: Recurrent Right upper extremity carpal tunnel syndrome, middle finger stenosing tenosynovitis Procedure: Revision Right upper extremity carpal tunnel release, middle finger A1 paxton release Anesthesia: Local plus monitored anesthesia care Surgeon: Antoine Simmons MD diversional therapist's assistant: SOHAIL Hua EBL: 5 mL Complications: None Specimens: None Drains: None Preoperative antibiotics: Ancef 1 g Indications: The patient has a history of recurrent right upper extremity carpal tunnel syndrome symptoms. Despite appropriate nonoperative management consisting of nighttime bracing and occupational therapy they continue to have symptoms. Additionally, she has painful catching and locking of her right hand middle finger. Operative intervention was recommended. The risks, benefits alternatives and expected outcomes were discussed in detail. These included but were not limited to: Infection, bleeding, injury to blood vessel or nerve, venous thromboembolism. All questions were answered to their satisfaction. The patient was placed supine on the operating room table. IV sedation was administered. Local anesthesia was established with 0.5% Marcaine without epinephrine and 2% lidocaine without epinephrine. The hand was prepped and draped in usual sterile fashion. The limb was elevated the forearm pneumatic tourniquet was inflated to 250 mm of mercury. The previously placed longitudinal incision over the radial border of the ring finger at the base of the palm was utilized. Subcutaneous dissection was sharply taken through the scar and the palmar fascia to the scar over the transverse carpal ligament. These soft tissues were divided in line with the incision. There was a marked amount of tenosynovitis in the carpal tunnel. This was aggressively debrided with the tenotomy and Metzenbaum scissors. We located the median nerve proximally in the carpal tunnel. It was displaced radially, tucked under the radial flap of the transverse carpal ligament. It was left in situ and not dissected free. Proximal and distal dissection was carried with tenotomy and Metzenbaum scissors for a wide decompression of the carpal tunnel. Attention was then turned to the middle finger. A transverse incision was made in the distal palmar crease. Subcutaneous dissection was taken with tenotomy scissors to the flexor tendons. The A1 paxton was isolated and was divided longitudinally with the 15 blade in the tenotomy scissors. Wounds were closed with a 3-0 nylon. A bulky dry dressing was applied, sponge and needle counts were correct x 2. The tourniquet was released. The patient tolerated the procedure well, there were no apparent complications. They were sent to same day surgery in satisfactory condition. Plan: Use of the hand as tolerates. Discontinue the intraoperative dressing on postoperative day 3 and may get the wound wet as tolerates. Follow up in the office in 2 weeks for a wound check and suture removal.
== END 2023-08-16 10:18 | disposition home or self-care (01) ==
PROVIDERS: PCP Family Medicine; Visit Provider Orthopaedic Surgery
PROC: (CPT 64721; principal; 2023-08-16 08:00)
DX: G56.01 Carpal tunnel syndrome, right upper limb (principal); M65.841 Other synovitis and tenosynovitis, right hand
CPT/HCPCS: 64721; 26055; 1810; J0665; J0690; J1200; J2250; J2704; J3490; J7120

== ENCOUNTER 2023-08-23 07:23 | Day surgery (SDC) | payer MEDICARE, OTHER, SELFPAY ==
[2023-08-23] VITALS (16 sets, daily range): BP systolic 111–156; BP diastolic 56–98; PULSE 73–93; RESP 16–24; TEMP 36.4–37.7; O2SAT 92–98; BMI 29.3
--- NOTE | 2023-08-23 07:29 | ED_ITS ---
HPI - General Adult General Time Seen by Provider: 07:43 <Carmelo Villanueva MD - Last Filed: 08/23/23 08:29> Date Seen: 08/23/23 <Carmelo Villanueva MD - Last Filed: 08/23/23 08:29> Chief complaint: Post Op Complication <Carmelo Villanueva MD - Last Filed: 08/23/23 08:29> Stated complaint: post op hand infection <Carmelo Villanueva MD - Last Filed: 08/23/23 08:29> Time Seen by Provider: 08/23/23 07:29 <Carmelo Villanueva MD - Last Filed: 08/23/23 08:29> Source: patient, RN notes reviewed and old records reviewed <Carmelo Villanueva MD - Last Filed: 08/23/23 08:29> Mode of arrival: ambulatory <Carmelo Villanueva MD - Last Filed: 08/23/23 08:29> Limitations: no limitations <Carmelo Villanueva MD - Last Filed: 08/23/23 08:29> History of Present Illness HPI narrative: 58-year-old female who is postop day 7 status post carpal tunnel release visit today with concern for infection. She reports increased pain in the last couple of days and increased redness. No fevers, has been vomiting. Takes OxyContin for chronic pain. <Carmelo Villanueva MD - Last Filed: 08/23/23 08:29> Related Data Home medications: Home Medications Medication Instructions Recorded Confirmed cholecalciferol (vitamin D3) 125 5,000 unit PO DAILY 06/07/22 08/15/23 mcg (5,000 unit) tablet cyanocobalamin (vitamin B-12) 5,000 mcg PO DAILY 06/07/22 08/15/23 2,500 mcg tablet polyethylene glycol 3350 17 17 g PO QDAY PRN 11/08/22 08/15/23 gram/dose oral powder oxycodone 10 mg tablet 10 mg PO QID PRN 03/08/23 08/15/23 Previous Rx's Medication Instructions Recorded aspirin 81 mg tablet,delayed 81 mg PO QDAY #90 tabs 07/23/22 release diclofenac sodium 1 % topical gel 2 g topical QID #100 grams 09/26/22 triamcinolone acetonide 0.1 % 1 applic topical BID #453.6 grams 08/23/22 topical cream hydrocortisone 1 % topical cream 1 applic topical BID-QID PRN 09/16/22 (Anti-Itch (hydrocortisone)) itching #28.35 grams benzonatate 100 mg capsule 100 mg PO TID PRN cough #30 caps 12/27/22 budesonide-formoterol HFA 160 2 puff inhalation BID #10.2 grams 12/27/22 mcg-4.5 mcg/actuation aerosol inhaler (Symbicort) hydroxyzine pamoate 25 mg capsule 25 mg PO Q8H PRN itching #40 caps 12/27/22 magnesium oxide 400 mg (241.3 mg 400 mg PO QDAY #90 tabs 12/27/22 magnesium) tablet meclizine 25 mg tablet (Dramamine 25 mg PO Q8H PRN dizziness #30 tabs 01/19/23 (meclizine)) sumatriptan 5 mg/actuation nasal 5 mg intranasal ONCE PRN migraine 02/11/23 spray headache #6 ea tizanidine 4 mg tablet 4 mg PO Q8H PRN muscle spasticity 02/28/23 #30 tabs atorvastatin 40 mg tablet 40 mg PO DAILY #90 tabs 03/08/23 omeprazole 40 mg capsule,delayed 40 mg PO QDAY #30 caps 03/15/23 release bupropion HCl 300 mg 24 hr tablet, 300 mg PO QAM #90 tabs 04/04/23 extended release ondansetron HCl 4 mg tablet 4 mg PO Q6H PRN nausea and 04/05/23 vomiting #30 tabs Magic Mouthwash 5 - 10 ml PO QID PRN #120 mL 05/13/23 (Lidocaine/Benadryl/Maalox) 120 mL suspension fluoxetine 40 mg capsule (Prozac) 40 mg PO QAM #90 caps 05/30/23 valacyclovir 500 mg tablet 500 mg PO DAILY cold sores #90 tabs 05/30/23 cetirizine 10 mg tablet (Zyrtec) 10 mg PO QDAY #90 tabs 06/30/23 lamotrigine 200 mg tablet 200 mg PO BID #60 tabs 06/30/23 albuterol sulfate 90 mcg/actuation 2 puff inhalation Q6H PRN 07/06/23 aerosol inhaler (Ventolin HFA) shortness of breath or wheezing #8.5 grams rizatriptan 10 mg tablet 10 mg PO ONCE PRN migraine 07/06/23 headache #18 tabs pregabalin 300 mg capsule 300 mg PO BID #60 caps 07/12/23 furosemide 40 mg tablet (Lasix) 40 mg PO QAM #30 tabs 07/28/23 buspirone 15 mg tablet 10 mg (0.6667 x 15 mg) PO BID PRN 07/29/23 anxiety #60 tabs quetiapine 100 mg tablet 200 mg (2 x 100 mg) PO QHS sleep 07/29/23 #180 tabs ropinirole 1 mg tablet 1 mg PO BID #180 tabs 07/29/23 acetaminophen 650 mg 1,300 mg (2 x 650 mg) PO .Every 8 08/19/23 tablet,extended release Hours #180 tabs <Carmelo Villanueva MD - Last Filed: 08/23/23 08:29> Allergies/adverse reactions: Allergies Allergy/AdvReac Type Severity Reaction Status Date / Time acyclovir Allergy Mild rash Verified 08/16/23 06:58 shingles like benzoin Allergy Mild rash, Verified 08/16/23 06:58 blisters, itching Cephalosporins Allergy Mild Rash Verified 08/16/23 06:58 penicillin V Allergy Mild Rash Verified 08/16/23 06:58 adhesive Allergy Unknown contact Verified 08/16/23 06:58 dermatitis to tape amoxicillin Allergy Unknown Rash Verified 08/16/23 06:58 baclofen Allergy Unknown Rash Verified 08/16/23 06:58 cefaclor Allergy Unknown Rash Verified 08/16/23 06:58 chlorhexidine Allergy Unknown contact Verified 08/16/23 06:58 dermatitis fentanyl Allergy Unknown Hallucinati Verified 08/16/23 06:58 ng gabapentin Allergy Unknown muscular Verified 08/16/23 06:58 twitch, slurred speech nortriptyline Allergy Unknown Palpitation Verified 08/16/23 06:58 s NSAIDS (Non-Steroidal Allergy Unknown gastric Verified 08/16/23 06:58 Anti-Inflamma bypass silver Allergy Unknown contact Verified 08/16/23 06:58 dermatitis Milk solids Allergy Intermediate Vomiting Uncoded 08/15/23 09:31 RACHEL Allergy Mild rash Uncoded 08/15/23 09:31 needing early removal Pollen Allergy Unknown runny nose Uncoded 08/15/23 09:31 Soy Allergy Allergy Unknown Uncoded 08/15/23 09:31 Sulfamethoxazole / Allergy Unknown nausea, GI Uncoded 08/15/23 09:31 trimethoprim upset dermbond AdvReac Unknown contact Uncoded 08/15/23 09:31 dermatitis <Carmelo Villanueva MD - Last Filed: 08/23/23 08:29> [facility] Medical History: Medical History GERD (gastroesophageal reflux disease) ?K21.9 - Gastro-esophageal reflux disease without esophagitis (ICD-10) History of skin cancer ?Z85.828 - Personal history of other malignant neoplasm of skin (ICD-10) ELLEN (generalized anxiety disorder) ?F41.1 - Generalized anxiety disorder (ICD-10) Migraine ?G43.909 - Migraine, unspecified, not intractable, without status migrainosus (ICD-10) Polypharmacy ?Z79.899 - Other correction (current) drug therapy (ICD-10) Herpes labialis ?B00.1 - Herpesviral vesicular dermatitis (ICD-10) 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) ?I69.398 - Other sequelae of cerebral infarction (ICD-10) ?H54.7 - Unspecified visual loss (ICD-10) Restless legs syndrome ?G25.81 - Restless legs syndrome (ICD-10) Pyogenic arthritis of left shoulder region (03/25/21) ?M00.9 - Pyogenic arthritis, unspecified (ICD-10) Posttraumatic stress disorder ?F43.10 - Post-traumatic stress disorder, unspecified (ICD-10) Nicotine dependence ?F17.200 - Nicotine dependence, unspecified, uncomplicated (ICD-10) Neuropathy associated with polyneuropathy, organomegaly, endocrinopathy, monoclonal gammopathy, and skin changes syndrome ?E88.09 - Other disorders of plasma-protein metabolism, not elsewhere classified (ICD-10) ?G63 - Polyneuropathy in diseases classified elsewhere (ICD-10) History of cerebrovascular accident ?Z86.73 - Personal history of transient ischemic attack (TIA), and cerebral infarction without residual deficits (ICD-10) Fibromyalgia ?M79.7 - Fibromyalgia (ICD-10) Cyclothymic disorder ?F34.0 - Cyclothymic disorder (ICD-10) Continuous opioid dependence (08/27/16) ?F11.20 - Opioid dependence, uncomplicated (ICD-10) Chronic obstructive pulmonary disease ?J44.9 - Chronic obstructive pulmonary disease, unspecified (ICD-10) Chronic neck pain ?M54.2 - Cervicalgia (ICD-10) ?G89.29 - Other chronic pain (ICD-10) Chronic back pain ?M54.9 - Dorsalgia, unspecified (ICD-10) ?G89.29 - Other chronic pain (ICD-10) Cerebral arteriosclerosis with history of previous cerebrovascular accident ?I67.2 - Cerebral atherosclerosis (ICD-10) ?Z86.73 - Personal history of transient ischemic attack (TIA), and cerebral infarction without residual deficits (ICD-10) Bipolar II disorder ?F31.81 - Bipolar II disorder (ICD-10) Ataxia due to cerebrovascular disease ?I67.9 - Cerebrovascular disease, unspecified (ICD-10) ?R27.0 - Ataxia, unspecified (ICD-10) Allergic rhinitis ?J30.9 - Allergic rhinitis, unspecified (ICD-10) <Carmeol Villanueva MD - Last Filed: 08/23/23 08:29> Surgical History: Surgical History Status post insertion of spinal cord stimulator ?Z96.89 - Presence of other specified functional implants (ICD-10) History of tubal ligation ?Z98.51 - Tubal ligation status (ICD-10) History of total hysterectomy with bilateral salpingo-oophorectomy (BSO) ?Z90.710 - Acquired absence of both cervix and uterus (ICD-10) ?Z90.722 - Acquired absence of ovaries, bilateral (ICD-10) ?Z90.79 - Acquired absence of other genital organ(s) (ICD-10) History of spinal surgery ?Z98.890 - Other specified postprocedural states (ICD-10) History of sinus surgery ?Z98.890 - Other specified postprocedural states (ICD-10) History of nevus excision ?Z98.890 - Other specified postprocedural states (ICD-10) ?Z87.2 - Personal history of diseases of the skin and subcutaneous tissue (ICD-10) History of neck surgery ?Z98.890 - Other specified postprocedural states (ICD-10) History of mastopexy ?Z98.890 - Other specified postprocedural states (ICD-10) History of left shoulder replacement ?Z96.612 - Presence of left artificial shoulder joint (ICD-10) History of gastric bypass (1999) ?Z98.84 - Bariatric surgery status (ICD-10) History of foot surgery ?Z98.890 - Other specified postprocedural states (ICD-10) History of cholecystectomy ?Z90.49 - Acquired absence of other specified parts of digestive tract (ICD- 10) History of carpal tunnel release of both wrists (2017) ?Z98.890 - Other specified postprocedural states (ICD-10) History of bilateral cataract extraction ?Z98.41 - Cataract extraction status, right eye (ICD-10) ?Z98.42 - Cataract extraction status, left eye (ICD-10) History of arthroplasty of both knees ?Z96.653 - Presence of artificial knee joint, bilateral (ICD-10) History of abdominoplasty ?Z98.890 - Other specified postprocedural states (ICD-10) <Carmelo Villanueva MD - Last Filed: 08/23/23 08:29> Family History: Family History Family/Other Breast cancer Lung cancer Father Cancer Coronary artery disease Sister Congenital heart defect Mother Pancreatic cancer, Onset Age: 60 <Carmelo Villanueva MD - Last Filed: 08/23/23 08:29> Social History: Social History Narrative: medical marijuana use chronic narcotic use tobacco use Smoking Status: Current every day smoker What tobacco products do you use: cigarettes Smoking quit date/years: <= 15 years ago Do you use any of these nicotine containing products: E-Cigarettes and Vaping Products Second hand tobacco smoke exposure: No How often do you have a drink containing alcohol: never How often do you have six or more drinks on one occasion: Never AUDIT-C Alcohol total score: 0 Non-prescribed substance use: marijuana (any form) Caffeine: Yes Little interest or pleasure in doing things: more than half the days Feeling down, depressed, or hopeless: several days Are you using contraception or practicing any form of control: No service: No <Carmelo Villanueva MD - Last Filed: 08/23/23 08:29> Exam Narrative: Exam Narrative: General: well nourished , NAD Head: Atraumatic and normocephalic ENT: External ears and external nose are normal Eyes: Conjunctiva clear, pupils are equal reactive, external ocular motions are intact Neck: Full spontaneous range of motion of the neck Lungs: No respiratory distress Musculoskeletal: Right hand-swelling, tenderness. On the proximal edge the wrist incision there is some subcutaneous pus and mild erythema of the wound its elf. Distal incision is intact with no erythema. There is no tracking erythema up the arm. Pain with attempted finger flexion and wrist flexion Neurologic: No gross focal neurologic deficits Skin: No rashes Psych: Mood and affect are appropriate <Carmelo Villanueva MD - Last Filed: 08/23/23 08:29> Const: Vital Signs, click to edit/add: Vital Signs - 24 hr 08/23/23 07:29 Temperature 97.6 F Pulse Rate [Pulse Oximeter] 86 Respiratory Rate 18 Blood Pressure [Ri ght Upper Arm] 111/56 L Pulse Oximetry 97 Oxygen Delivery Me thod Room Air <Carmelo Villanueva MD - Last Filed: 08/23/23 08:29> Vital Signs, click to edit/add: Vital Signs - 24 hr 08/23/23 07:29 Temperature 97.6 F Pulse Rate [Pulse Oximeter] 86 Respiratory Rate 18 Blood Pressure [Ri ght Upper Arm] 111/56 L Pulse Oximetry 97 Oxygen Delivery Me thod Room Air <Tejal Shaw MD - Last Filed: 08/23/23 12:06> Course Course ED Course: Patient seen and examined, prior records are reviewed. Patient is postop day 6 status post carpal tunnel surgery and presents with concern for wound infection. The proximal incision on the wrist is erythematous and there is some subcutaneous pus on the proximal edge. Labs are ordered and will discuss with Orthopedics. <Carmelo Villanueva MD - Last Filed: 08/23/23 08:29> Patient seen and examined, prior records are reviewed. Patient is postop day 6 status post carpal tunnel surgery and presents with concern for wound infection. The proximal incision on the wrist is erythematous and there is some subcutaneous pus on the proximal edge. Labs are ordered and will discuss with Orthopedics. Patient signed out to me by Dr. Villanueva to follow up on labs and discuss with Ortho. Labs are unremarkable. She did request pain medication and I gave her her 10 mg of oxycodone that she takes on a regular basis. Orthopedics saw her and would like to take her to the OR for washout later today. Will keep her NPO, no other acute complaints. She had vancomycin IV. <Tejal Shaw MD - Last Filed: 08/23/23 12:06> Vital Signs Vital signs: Initial Vital Signs Temperature 97.6 F 08/23/23 07:29 Temperature Source Temporal Artery Scan 08/23/23 07:29 Pulse Rate 86 08/23/23 07:29 Respiratory Rate 18 08/23/23 07:29 Blood Pressure 111/56 L 08/23/23 07:29 Blood Pressure Mean 74 08/23/23 07:29 Blood Pressure Position Sitting 08/23/23 07:29 Pulse Oximetry 97 08/23/23 07:29 Oxygen Delivery Method Room Air 08/23/23 07:29 Vital Signs Temperature 97.6 F 08/23/23 07:29 Pulse Rate 86 08/23/23 07:29 Respiratory Rate 18 08/23/23 07:29 Blood Pressure 111/56 L 08/23/23 07:29 Pulse Oximetry 97 08/23/23 07:29 Oxygen Delivery Method Room Air 08/23/23 07:29 Temperature 97.6 F 08/23/23 07:29 Pulse Rate 86 08/23/23 07:29 Respiratory Rate 18 08/23/23 07:29 Blood Pressure 111/56 L 08/23/23 07:29 Pulse Oximetry 97 08/23/23 07:29 Oxygen Delivery Method Room Air 08/23/23 07:29 <Carmelo Villanueva MD - Last Filed: 08/23/23 08:29> Initial Vital Signs Temperature 97.6 F 08/23/23 07:29 Temperature Source Temporal Artery Scan 08/23/23 07:29 Pulse Rate 86 08/23/23 07:29 Respiratory Rate 18 08/23/23 07:29 Blood Pressure 111/56 L 08/23/23 07:29 Blood Pressure Mean 74 08/23/23 07:29 Blood Pressure Position Sitting 08/23/23 07:29 Pulse Oximetry 97 08/23/23 07:29 Oxygen Delivery Method Room Air 08/23/23 07:29 Vital Signs Temperature 97.6 F 08/23/23 07:29 Pulse Rate 86 08/23/23 07:29 Respiratory Rate 18 08/23/23 07:29 Blood Pressure 111/56 L 08/23/23 07:29 Pulse Oximetry 97 08/23/23 07:29 Oxygen Delivery Method Room Air 08/23/23 07:29 Temperature 97.6 F 08/23/23 07:29 Pulse Rate 86 08/23/23 07:29 Respiratory Rate 18 08/23/23 07:29 Blood Pressure 111/56 L 08/23/23 07:29 Pulse Oximetry 97 08/23/23 07:29 Oxygen Delivery Method Room Air 08/23/23 07:29 <Tejal Shaw MD - Last Filed: 08/23/23 12:06> Medical Decision Making Lab Data Labs: Lab Results 08/23/23 Range/Units 07:55 WBC 8.29 (4.50-11.00) K/uL RBC 4.04 (4.00-5.20) m/uL Hgb 11.0 L (12.0-16.0) gm/dL Hct 34.2 (33.0-51.0) % MCV 85 (80-100) fL MCH 27 (26-34) pg MCHC 32 (32-36) gm/dL RDW Coeff of Joe 17.2 H (11.5-15.5) % Plt Count 315 (140-440) K/uL Neut % (Auto) 76.2 H (42.0-72.0) % Lymph % (Auto) 14.0 L (20-44) % [place] % (Auto) 8.0 (0.0-11.0) % Eos % (Auto) 1.6 (0.0-7.0) % Baso % (Auto) 0.2 (0.0-3.0) % Neut # (Auto) 6.30 (1.7-7.0) K/uL Lymph # (Auto) 1.20 (0.90-2.90) K/uL [place] # (Auto) 0.70 (0.00-0.90) K/UL Eos # (Auto) 0.13 (0.00-0.50) K/uL Baso # (Auto) 0.02 (0.00-0.30) K/uL Abs Immat Gran (auto) 0.00 (0.00-0.30) K/uL Imm/Tot Granulo (auto) 0.0 % Sodium 138 (135-149) mmol/L Potassium 4.5 (3.6-5.1) mmol/L Chloride 104 (96-114) mmol/L Carbon Dioxide 29 (20-32) mmol/L Anion Gap 5 L (7-15) mEq/L BUN 15 (7-30) mg/dL Creatinine 0.6 (0.5-1.5) mg/dL Estimated Creat Clear 103.53 Estimated GFR 103 ml/min Glucose 113 (60-115) mg/dL Calcium 9.4 (8.4-10.6) mg/dL C-Reactive Protein 1.7 H (0.5-1.0) mg/dL <Carmelo Villanueva MD - Last Filed: 08/23/23 08:29> Lab Results 08/23/23 Range/Units 07:55 WBC 8.29 (4.50-11.00) K/uL RBC 4.04 (4.00-5.20) m/uL Hgb 11.0 L (12.0-16.0) gm/dL Hct 34.2 (33.0-51.0) % MCV 85 (80-100) fL MCH 27 (26-34) pg MCHC 32 (32-36) gm/dL RDW Coeff of Joe 17.2 H (11.5-15.5) % Plt Count 315 (140-440) K/uL Neut % (Auto) 76.2 H (42.0-72.0) % Lymph % (Auto) 14.0 L (20-44) % [place] % (Auto) 8.0 (0.0-11.0) % Eos % (Auto) 1.6 (0.0-7.0) % Baso % (Auto) 0.2 (0.0-3.0) % Neut # (Auto) 6.30 (1.7-7.0) K/uL Lymph # (Auto) 1.20 (0.90-2.90) K/uL [place] # (Auto) 0.70 (0.00-0.90) K/UL Eos # (Auto) 0.13 (0.00-0.50) K/uL Baso # (Auto) 0.02 (0.00-0.30) K/uL Abs Immat Gran (auto) 0.00 (0.00-0.30) K/uL Imm/Tot Granulo (auto) 0.0 % Sodium 138 (135-149) mmol/L Potassium 4.5 (3.6-5.1) mmol/L Chloride 104 (96-114) mmol/L Carbon Dioxide 29 (20-32) mmol/L Anion Gap 5 L (7-15) mEq/L BUN 15 (7-30) mg/dL Creatinine 0.6 (0.5-1.5) mg/dL Estimated Creat Clear 103.53 Estimated GFR 103 ml/min Glucose 113 (60-115) mg/dL Calcium 9.4 (8.4-10.6) mg/dL C-Reactive Protein 1.7 H (0.5-1.0) mg/dL <Tejal Shaw MD - Last Filed: 08/23/23 12:06> Discharge Plan Discharge Prescriptions: No Action cholecalciferol (vitamin D3) 125 mcg (5,000 unit) tablet 5,000 unit PO DAILY cyanocobalamin (vitamin B-12) 2,500 mcg tablet 5,000 mcg PO DAILY hydrocortisone [Anti-Itch (HC)] 1 % cream 1 applic topical BID-QID PRN (Reason: itching) Qty: 28.35 0RF oxycodone 10 mg tablet 10 mg PO QID PRN bupropion HCl 300 mg tablet extended release 24 hr 300 mg PO QAM Qty: 90 3RF triamcinolone acetonide 0.1 % cream 1 applic topical BID Qty: 453.6 0RF diclofenac sodium 1 % gel 2 g topical QID Qty: 100 2RF polyethylene glycol 3350 17 gram/dose powder 17 g PO QDAY PRN benzonatate 100 mg capsule 100 mg PO TID PRN (Reason: cough) Qty: 30 1RF hydroxyzine pamoate 25 mg capsule 25 mg PO Q8H PRN (Reason: itching) Qty: 40 1RF magnesium oxide 400 mg (241.3 mg magnesium) tablet 400 mg PO QDAY Qty: 90 3RF budesonide-formoterol [Symbicort] 160-4.5 mcg/actuation HFA aerosol inhaler 2 puff inhalation BID Qty: 10.2 5RF ropinirole 1 mg tablet 1 mg PO BID Qty: 180 3RF Rx Instructions: 1 Qpm and 1 QHS quetiapine 100 mg tablet 200 mg PO QHS Qty: 180 1RF buspirone 15 mg tablet 10 mg PO BID PRN (Reason: anxiety) Qty: 60 2RF Magic Mouthwash (Lidocaine/Benadryl/Maalox) 120 mL suspension 5 - 10 ml PO QID PRNQty: 120 0RF Rx Instructions: Lidocaine Viscous 2 % mucosal solution 40 mL; Maalox 200 mg-200 mg-20 mg/5 mL oral suspension 40 mL; Benadryl 12.5 mg/5 mL oral elixir 40 mL; Per 120 mL SWISH AND SPIT. MAY COMPOUND IF FIRST PRODUCT IS NOT AVAILABLE. aspirin 81 mg tablet,delayed release (DR/EC) 81 mg PO QDAY Qty: 90 3RF meclizine [Dramamine (meclizine)] 25 mg tablet 25 mg PO Q8H PRN (Reason: dizziness) Qty: 30 1RF sumatriptan 5 mg/actuation spray,non-aerosol 5 mg intranasal ONCE PRN (Reason: migraine headache) Qty: 6 5RF Rx Instructions: 1-2 SPRAYS IN ONE NOSTRIL AT ONSET OF HEADACHE, MAY REPEAT Q2H PRN, MAX 4 SPRAYS/24 HRS tizanidine 4 mg tablet 4 mg PO Q8H PRN (Reason: muscle spasticity) Qty: 30 1RF atorvastatin 40 mg tablet 40 mg PO DAILY Qty: 90 1RF omeprazole 40 mg capsule,delayed release(DR/EC) 40 mg PO QDAY Qty: 30 5RF ondansetron HCl 4 mg tablet 4 mg PO Q6H PRN (Reason: nausea and vomiting) Qty: 30 2RF fluoxetine [Prozac] 40 mg capsule 40 mg PO QAM Qty: 90 3RF valacyclovir 500 mg tablet 500 mg PO DAILY Qty: 90 3RF lamotrigine 200 mg tablet 200 mg PO BID Qty: 60 12RF cetirizine [Zyrtec] 10 mg tablet 10 mg PO QDAY Qty: 90 3RF albuterol sulfate [Ventolin HFA] 90 mcg/actuation HFA aerosol inhaler 2 puff inhalation Q6H PRN (Reason: shortness of breath or wheezing) Qty: 8.5 2RF rizatriptan 10 mg tablet 10 mg PO ONCE PRN (Reason: migraine headache) Qty: 18 2RF Rx Instructions: TAKE ONE TAB AT ONSET OF HEADACHE, MAY REPEAT Q2H PRN, MAX 30 MG/24 HRS, must last a month pregabalin 300 mg capsule 300 mg PO BID Qty: 60 2RF furosemide [Lasix] 40 mg tablet 40 mg PO QAM Qty: 30 1RF acetaminophen 650 mg tablet extended release 1,300 mg PO .Every 8 Hours Qty: 180 12RF <Carmelo Villanueva MD - Last Filed: 08/23/23 08:29> Follow Up/Referrals: Clemente Blackwell MD [Primary Care Provider] - <Carmelo Villanueva MD - Last Filed: 08/23/23 08:29>
[2023-08-23 08:10] LABS: Basophils Absolute Auto 0.02 K/uL (0.00-0.30); Basophils Percent Auto 0.2 % (0.0-3.0); Eosinophils Absolute Auto 0.13 K/uL (0.00-0.50); Eosinophils Percent Auto 1.6 % (0.0-7.0); Hematocrit 34.2 % (33.0-51.0); Mean Corpuscular HGB Conc 32 gm/dL (32-36); Mean Corpuscular Hemoglobin 27 pg (26-34); Mean Corpuscular Volume 85 fL (80-100); Neutrophils Percent Auto 76.2 % (42.0-72.0); Platelet Count* 315 K/uL (140-440); RDW Coefficient of Variation % 17.2 % (11.5-15.5); Red Blood Count 4.04 m/uL (4.00-5.20); White Blood Count* 8.29 K/uL (4.50-11.00)
[2023-08-23 08:24] LABS: Chloride* 104 mmol/L (96-114); Potassium* 4.5 mmol/L (3.6-5.1); Slide Review Reflex No; Sodium* 138 mmol/L (135-149)
[2023-08-23 08:27] LABS: Creatinine* 0.6 mg/dL (0.5-1.5); Est. Creatinine Clearance* 103.53; Estimated Glomerular Filt Rate 103 ml/min
[2023-08-23 08:28] LABS: Anion Gap 5 mEq/L (7-15); Blood Urea Nitrogen* 15 mg/dL (7-30); Calcium* 9.4 mg/dL (8.4-10.6); Carbon Dioxide* 29 mmol/L (20-32); Glucose* 113 mg/dL (60-115)
[2023-08-23 08:30] LABS: C Reactive Protein* 1.7 mg/dL (0.5-1.0)
[2023-08-23] MEDS: OXYCODONE 5 MG TABLET 10 MG PO (09:43)
--- NOTE | 2023-08-23 10:12 | ED.NURSE ---
Patient ambulated to bathroom. Ortho PA saw patient.
[2023-08-23] MEDS: LACTATED RINGERS 1000 ML 1,000 ML 100 ML IV (12:40)
--- NOTE | 2023-08-23 13:19 | W.ANESCHARGE ---
Anesthesia Charges Start Date/Time Anesthesia Start Date: 08/23/23 Anesthesia Start Time: 12:59 Stop Date/Time Anesthesia Stop Date: 08/23/23 Anesthesia Stop Time: 13:56
[2023-08-23] MEDS: CEFAZOLIN 2 GM INJ IVP (13:25)
--- NOTE | 2023-08-23 13:35 | W.ANESCHARGE ---
Anesthesia Charges Start Date/Time Anesthesia Start Date: 08/23/23 Anesthesia Start Time: 12:59 Stop Date/Time Anesthesia Stop Date: 08/23/23 Anesthesia Stop Time: 13:56
--- NOTE | 2023-08-23 13:45 | P.ORCN_ITS ---
History of Present Illness HPI Date Seen: 08/23/23 Chief complaint: post op hand infection Narrative: Olive is seen for increasing pain, swelling and drainage from her right hand. This has been going on for a couple of days. She has not been on antibiotics. She has a history of previous infections. Review of Systems Narrative: The patient denies: Fever, night sweats, shaking chills, nausea, vomiting, diarrhea, chest pain, chest pressure, shortness of breath, no rash, no change in hearing or vision, no issues with bleeding or clotting [facility] Medical History GERD (gastroesophageal reflux disease) ?K21.9 - Gastro-esophageal reflux disease without esophagitis (ICD-10) History of skin cancer ?Z85.828 - Personal history of other malignant neoplasm of skin (ICD-10) ELLEN (generalized anxiety disorder) ?F41.1 - Generalized anxiety disorder (ICD-10) Migraine ?G43.909 - Migraine, unspecified, not intractable, without status migrainosus (ICD-10) Polypharmacy ?Z79.899 - Other snf (current) drug therapy (ICD-10) Herpes labialis ?B00.1 - Herpesviral vesicular dermatitis (ICD-10) 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) ?I69.398 - Other sequelae of cerebral infarction (ICD-10) ?H54.7 - Unspecified visual loss (ICD-10) Restless legs syndrome ?G25.81 - Restless legs syndrome (ICD-10) Pyogenic arthritis of left shoulder region (03/25/21) ?M00.9 - Pyogenic arthritis, unspecified (ICD-10) Posttraumatic stress disorder ?F43.10 - Post-traumatic stress disorder, unspecified (ICD-10) Nicotine dependence ?F17.200 - Nicotine dependence, unspecified, uncomplicated (ICD-10) Neuropathy associated with polyneuropathy, organomegaly, endocrinopathy, monoclonal gammopathy, and skin changes syndrome ?E88.09 - Other disorders of plasma-protein metabolism, not elsewhere classified (ICD-10) ?G63 - Polyneuropathy in diseases classified elsewhere (ICD-10) History of cerebrovascular accident ?Z86.73 - Personal history of transient ischemic attack (TIA), and cerebral infarction without residual deficits (ICD-10) Fibromyalgia ?M79.7 - Fibromyalgia (ICD-10) Cyclothymic disorder ?F34.0 - Cyclothymic disorder (ICD-10) Continuous opioid dependence (08/27/16) ?F11.20 - Opioid dependence, uncomplicated (ICD-10) Chronic obstructive pulmonary disease ?J44.9 - Chronic obstructive pulmonary disease, unspecified (ICD-10) Chronic neck pain ?M54.2 - Cervicalgia (ICD-10) ?G89.29 - Other chronic pain (ICD-10) Chronic back pain ?M54.9 - Dorsalgia, unspecified (ICD-10) ?G89.29 - Other chronic pain (ICD-10) Cerebral arteriosclerosis with history of previous cerebrovascular accident ?I67.2 - Cerebral atherosclerosis (ICD-10) ?Z86.73 - Personal history of transient ischemic attack (TIA), and cerebral infarction without residual deficits (ICD-10) Bipolar II disorder ?F31.81 - Bipolar II disorder (ICD-10) Ataxia due to cerebrovascular disease ?I67.9 - Cerebrovascular disease, unspecified (ICD-10) ?R27.0 - Ataxia, unspecified (ICD-10) Allergic rhinitis ?J30.9 - Allergic rhinitis, unspecified (ICD-10) Surgical History Status post insertion of spinal cord stimulator ?Z96.89 - Presence of other specified functional implants (ICD-10) History of tubal ligation ?Z98.51 - Tubal ligation status (ICD-10) History of total hysterectomy with bilateral salpingo-oophorectomy (BSO) ?Z90.710 - Acquired absence of both cervix and uterus (ICD-10) ?Z90.722 - Acquired absence of ovaries, bilateral (ICD-10) ?Z90.79 - Acquired absence of other genital organ(s) (ICD-10) History of spinal surgery ?Z98.890 - Other specified postprocedural states (ICD-10) History of sinus surgery ?Z98.890 - Other specified postprocedural states (ICD-10) History of nevus excision ?Z98.890 - Other specified postprocedural states (ICD-10) ?Z87.2 - Personal history of diseases of the skin and subcutaneous tissue (ICD-10) History of neck surgery ?Z98.890 - Other specified postprocedural states (ICD-10) History of mastopexy ?Z98.890 - Other specified postprocedural states (ICD-10) History of left shoulder replacement ?Z96.612 - Presence of left artificial shoulder joint (ICD-10) History of gastric bypass (1999) ?Z98.84 - Bariatric surgery status (ICD-10) History of foot surgery ?Z98.890 - Other specified postprocedural states (ICD-10) History of cholecystectomy ?Z90.49 - Acquired absence of other specified parts of digestive tract (ICD- 10) History of carpal tunnel release of both wrists (2017) ?Z98.890 - Other specified postprocedural states (ICD-10) History of bilateral cataract extraction ?Z98.41 - Cataract extraction status, right eye (ICD-10) ?Z98.42 - Cataract extraction status, left eye (ICD-10) History of arthroplasty of both knees ?Z96.653 - Presence of artificial knee joint, bilateral (ICD-10) History of abdominoplasty ?Z98.890 - Other specified postprocedural states (ICD-10) Family History Family/Other Breast cancer Lung cancer Father Cancer Coronary artery disease Sister Congenital heart defect Mother Pancreatic cancer, Onset Age: 60 Social History Narrative: medical marijuana use chronic narcotic use tobacco use Smoking Status: Current every day smoker What tobacco products do you use: cigarettes Smoking quit date/years: <= 15 years ago Do you use any of these nicotine containing products: E-Cigarettes and Vaping Products Second hand tobacco smoke exposure: No How often do you have a drink containing alcohol: never How often do you have six or more drinks on one occasion: Never AUDIT-C Alcohol total score: 0 Non-prescribed substance use: marijuana (any form) Caffeine: Yes Little interest or pleasure in doing things: more than half the days Feeling down, depressed, or hopeless: several days Are you using contraception or practicing any form of control: No service: No Meds Home Medications and Allergies Home Medications Medication Instructions Recorded Confirmed Type cholecalciferol (vitamin D3) 125 5,000 unit PO DAILY 07/11/22 09/26/23 History mcg (5,000 unit) tablet cyanocobalamin (vitamin B-12) 5,000 mcg PO DAILY 06/07/22 08/23/23 History 2,500 mcg tablet polyethylene glycol 3350 17 17 g PO QDAY PRN 11/08/22 08/23/23 History gram/dose oral powder oxycodone 10 mg tablet 10 mg PO QID PRN 03/08/23 08/23/23 History Allergies Allergy/AdvReac Type Severity Reaction Status Date / Time acyclovir Allergy Mild rash Verified 08/16/23 06:58 shingles like benzoin Allergy Mild rash, Verified 08/16/23 06:58 blisters, itching Cephalosporins Allergy Mild Rash Verified 08/16/23 06:58 penicillin V Allergy Mild Rash Verified 08/16/23 06:58 adhesive Allergy Unknown contact Verified 08/16/23 06:58 dermatitis to tape amoxicillin Allergy Unknown Rash Verified 08/16/23 06:58 baclofen Allergy Unknown Rash Verified 08/16/23 06:58 cefaclor Allergy Unknown Rash Verified 08/16/23 06:58 chlorhexidine Allergy Unknown contact Verified 08/16/23 06:58 dermatitis fentanyl Allergy Unknown Hallucinati Verified 08/16/23 06:58 ng gabapentin Allergy Unknown muscular Verified 08/16/23 06:58 twitch, slurred speech nortriptyline Allergy Unknown Palpitation Verified 08/16/23 06:58 s NSAIDS (Non-Steroidal Allergy Unknown gastric Verified 08/16/23 06:58 Anti-Inflamma bypass silver Allergy Unknown contact Verified 08/16/23 06:58 dermatitis Milk solids Allergy Intermediate Vomiting Uncoded 08/15/23 09:31 RACHEL Allergy Mild rash Uncoded 08/15/23 09:31 needing early removal Pollen Allergy Unknown runny nose Uncoded 08/15/23 09:31 Soy Allergy Allergy Unknown Uncoded 08/15/23 09:31 Sulfamethoxazole / Allergy Unknown nausea, GI Uncoded 08/15/23 09:31 trimethoprim upset dermbond AdvReac Unknown contact Uncoded 08/15/23 09:31 dermatitis Ortho Exam Narrative Exam Narrative: The patient is alert and oriented x3, in no acute distress, they are able to converse in a normal speaking voice without obvious hearing loss and with nonlabored breathing. Examination of the right hand shows a small area of purulence over the proximal aspect of the carpal tunnel release incision. The trigger finger incision is well healed. Her hand is swollen and tender. She is reluctant to move her fingers. CMS appears normal. Const Vital Signs, click to edit/add: Vital Signs - 24 hr 08/23/23 07:29 Temperature 97.6 F Pulse Rate [Pulse Oximeter] 86 Respiratory Rate 18 Blood Pressure [Right Upper Arm] 111/56 L Pulse Oximetry 97 Oxygen Delivery Method Room Air Results Labs Labs: Laboratory Results - last 48 hr 08/23/23 07:55 WBC 8.29 RBC 4.04 Hgb 11.0 L Hct 34.2 MCV 85 MCH 27 MCHC 32 RDW Coeff of Joe 17.2 H Plt Count 315 Neut % (Auto) 76.2 H Lymph % (Auto) 14.0 L Caswell % (Auto) 8.0 Eos % (Auto) 1.6 Baso % (Auto) 0.2 Neut # (Auto) 6.30 Lymph # (Auto) 1.20 Caswell # (Auto) 0.70 Eos # (Auto) 0.13 Baso # (Auto) 0.02 Abs Immat Gran (auto) 0.00 Imm/Tot Granulo (auto) 0.0 Sodium 138 Potassium 4.5 Chloride 104 Carbon Dioxide 29 Anion Gap 5 L BUN 15 Creatinine 0.6 Estimated Creat Clear 103.53 Estimated GFR 103 Glucose 113 Calcium 9.4 C-Reactive Protein 1.7 H Assessment and Plan Assessment and plan (1) Deep postoperative wound infection: Status: Acute Plan Assessment: Deep infection right hand after carpal tunnel release Plan: She has not had anything to eat or drink today. Therefore, I think we should take her back to the operating room today for irrigation and debridement. She agrees and wishes to proceed. She got a dose of Ancef preoperatively at the time of her carpal tunnel surgery. She tolerated this well. Therefore, we will plan to place her on Keflex postoperatively.
--- NOTE | 2023-08-23 13:48 | PM.ORPRC ---
Procedure Note Date of procedure: 08/23/23 Procedure: Preop diagnosis: Deep wound infection Right upper extremity after carpal tunnel release Postop diagnosis: Deep wound infection right upper extremity of her carpal tunnel release Procedure: Incision and drainage Anesthesia: Local plus general endotracheal Surgeon: Antoine Simmons MD delinquent tax collector assistant: COBY Wright EBL: 0 mL Complications: None Specimens: Routine cultures sent, labeled as right carpal tunnel Drains: None Indications: The patient has a history of revision right upper extremity carpal tunnel release 1 week ago. For the past couple of days there has been increasing pain and swelling was some purulent drainage. She presents to the emergency department today. A deep wound infection was diagnosed. Operative intervention was recommended. The risks, benefits alternatives and expected outcomes were discussed in detail. These included but were not limited to: Infection, bleeding, injury to blood vessel or nerve, venous thromboembolism. All questions were answered to their satisfaction. The patient was placed supine on the operating room table. General anesthesia was administered. Local anesthesia was established with 0.5% Marcaine without epinephrine and 2% lidocaine without epinephrine. The hand was prepped and draped in usual sterile fashion. The previously placed carpal tunnel release incision was opened with the tenotomy scissors. There was only a very small amount of purulence noted proximally. Deep cultures were obtained. These were labeled as right hand carpal tunnel. We opened the trigger finger release incision at the base of the middle finger. Deep palpation of the distal forearm, wrist and hand shows no purulence emanating from either incision. We irrigated both wounds with 3 L of normal saline via bulb syringe. The wounds were closed with a 3-0 nylon in a simple interrupted fashion. A bulky soft bandage was applied. In sponge and needle counts were correct x 2. The patient tolerated the procedure well, there were no apparent complications. They were sent to same day surgery in satisfactory condition. Plan: Use of the hand as tolerates. Discontinue the intraoperative dressing on postoperative day 3 and may get the wound wet as tolerates. Follow up in the office in 2 weeks for a wound check and suture removal. We will plan a 2 week course of Keflex. She will likely need occupational therapy to regain her range of motion.
[2023-08-23] MEDS: MEPERIDINE 25 MG/ML INJ 12.5 MG IVP (14:19)
[2023-08-23] MEDS: HYDROmorphone 0.5 mg/0.5 ml inj IVP ×2 (14:24→14:45)
--- NOTE | 2023-08-23 15:00 | SUR.PHASEI ---
patient met discharge criteria per anesthesia
--- NOTE | 2023-08-23 15:48 | SUR.PHASEII ---
Patient rating pain at 9/10. Pt is vitally stable, laughing with staff and using affected arm with no issue. No oral pain medications available/ordered. See MAR for medication dosing in PACU. Patient agreeable to going home using prescribed narcotics she already has.
== END 2023-08-23 15:45 | disposition home or self-care (01) ==
LOC: ED 11:43 → SS 12:34
PROVIDERS: Emergency Provider Family Medicine; PCP Family Medicine; Visit Provider Orthopaedic Surgery
PROC: (CPT 10180; principal; 2023-08-23 13:00)
DX: T81.42XA Infection following a procedure, deep incisional surgical site, initial encounter (principal)
CPT/HCPCS: 10180; 01810; 36415; 80048; 85025; 86140; 87070; 87075; 87186; 87205; 99284; A9270; J0690; J1100; J1170; J2175; J2405; J2704; J3010; J3370; J7050; J7120

== ENCOUNTER 2023-08-28 15:17 | Emergency (ER) | payer MEDICARE, SELFPAY ==
[2023-08-28 15:27] VITALS: BP 126/71; PULSE 93; RESP 16; TEMP 36.9; O2SAT 97
--- NOTE | 2023-08-28 15:57 | ED_ITS ---
HPI - General Adult General Date Seen: 08/28/23 Chief complaint: Post Op Complication Stated complaint: Infection in hand after surgery 2 weeks ago Time Seen by Provider: 08/28/23 15:33 Source: patient Mode of arrival: ambulatory Limitations: no limitations History of Present Illness HPI narrative: Patient is 58-year-old female presenting to the emergency department for right wrist pain. She had carpal tunnel surgery done 2 weeks ago had a washout of the surgical site 5 days ago. She is states pain is getting worse today and she cannot tolerate anymore. She believes the infection is getting worse. She is on Keflex. Denies any numbness to the hand but does say the pain goes up the proximal 3rd of the flexor aspect of the hand. Shows also notice swelling to the hand. Related Data Home Medications Medication Instructions Recorded Confirmed cholecalciferol (vitamin D3) 125 5,000 unit PO DAILY 06/07/22 08/23/23 mcg (5,000 unit) tablet cyanocobalamin (vitamin B-12) 5,000 mcg PO DAILY 06/07/22 08/23/23 2,500 mcg tablet polyethylene glycol 3350 17 17 g PO QDAY PRN 11/08/22 08/23/23 gram/dose oral powder oxycodone 10 mg tablet 10 mg PO QID PRN 03/08/23 08/23/23 Previous Rx's Medication Instructions Recorded aspirin 81 mg tablet,delayed 81 mg PO QDAY #90 tabs 07/23/22 release diclofenac sodium 1 % topical gel 2 g topical QID #100 grams 08/23/22 triamcinolone acetonide 0.1 % 1 applic topical BID #453.6 grams 08/23/22 topical cream hydrocortisone 1 % topical cream 1 applic topical BID-QID PRN 09/16/22 (Anti-Itch (hydrocortisone)) itching #28.35 grams benzonatate 100 mg capsule 100 mg PO TID PRN cough #30 caps 12/27/22 budesonide-formoterol HFA 160 2 puff inhalation BID #10.2 grams 12/27/22 mcg-4.5 mcg/actuation aerosol inhaler (Symbicort) hydroxyzine pamoate 25 mg capsule 25 mg PO Q8H PRN itching #40 caps 12/27/22 magnesium oxide 400 mg (241.3 mg 400 mg PO QDAY #90 tabs 12/27/22 magnesium) tablet meclizine 25 mg tablet (Dramamine 25 mg PO Q8H PRN dizziness #30 tabs 01/19/23 (meclizine)) sumatriptan 5 mg/actuation nasal 5 mg intranasal ONCE PRN migraine 02/11/23 spray headache #6 ea tizanidine 4 mg tablet 4 mg PO Q8H PRN muscle spasticity 02/28/23 #30 tabs bupropion HCl 300 mg 24 hr tablet, 300 mg PO QAM #90 tabs 04/04/23 extended release ondansetron HCl 4 mg tablet 4 mg PO Q6H PRN nausea and 04/05/23 vomiting #30 tabs Magic Mouthwash 5 - 10 ml PO QID PRN #120 mL 05/13/23 (Lidocaine/Benadryl/Maalox) 120 mL suspension fluoxetine 40 mg capsule (Prozac) 40 mg PO QAM #90 caps 05/30/23 valacyclovir 500 mg tablet 500 mg PO DAILY cold sores #90 tabs 05/30/23 cetirizine 10 mg tablet (Zyrtec) 10 mg PO QDAY #90 tabs 06/30/23 lamotrigine 200 mg tablet 200 mg PO BID #60 tabs 06/30/23 albuterol sulfate 90 mcg/actuation 2 puff inhalation Q6H PRN 07/06/23 aerosol inhaler (Ventolin HFA) shortness of breath or wheezing #8.5 grams rizatriptan 10 mg tablet 10 mg PO ONCE PRN migraine 07/06/23 headache #18 tabs pregabalin 300 mg capsule 300 mg PO BID #60 caps 07/12/23 furosemide 40 mg tablet (Lasix) 40 mg PO QAM #30 tabs 07/28/23 buspirone 15 mg tablet 10 mg (0.6667 x 15 mg) PO BID PRN 07/29/23 anxiety #60 tabs quetiapine 100 mg tablet 200 mg (2 x 100 mg) PO QHS sleep 07/29/23 #180 tabs ropinirole 1 mg tablet 1 mg PO BID #180 tabs 07/29/23 acetaminophen 650 mg 1,300 mg (2 x 650 mg) PO .Every 8 08/19/23 tablet,extended release Hours #180 tabs cephalexin 500 mg capsule 500 mg PO QID #56 caps 08/23/23 atorvastatin 40 mg tablet 40 mg PO DAILY #30 tabs 08/26/23 omeprazole 40 mg capsule,delayed 40 mg PO QDAY #30 caps 08/26/23 release hydrocodone 5 mg-acetaminophen 325 1 tab PO Q6H PRN pain #6 tabs 08/28/23 mg tablet Allergies Allergy/AdvReac Type Severity Reaction Status Date / Time acyclovir Allergy Mild rash Verified 08/16/23 06:58 shingles like benzoin Allergy Mild rash, Verified 08/16/23 06:58 blisters, itching Cephalosporins Allergy Mild Rash Verified 08/16/23 06:58 penicillin V Allergy Mild Rash Verified 08/16/23 06:58 adhesive Allergy Unknown contact Verified 08/16/23 06:58 dermatitis to tape amoxicillin Allergy Unknown Rash Verified 08/16/23 06:58 baclofen Allergy Unknown Rash Verified 08/16/23 06:58 cefaclor Allergy Unknown Rash Verified 08/16/23 06:58 chlorhexidine Allergy Unknown contact Verified 08/16/23 06:58 dermatitis fentanyl Allergy Unknown Hallucinati Verified 08/16/23 06:58 ng gabapentin Allergy Unknown muscular Verified 08/16/23 06:58 twitch, slurred speech nortriptyline Allergy Unknown Palpitation Verified 08/16/23 06:58 s NSAIDS (Non-Steroidal Allergy Unknown gastric Verified 08/16/23 06:58 Anti-Inflamma bypass silver Allergy Unknown contact Verified 08/16/23 06:58 dermatitis Milk solids Allergy Intermediate Vomiting Uncoded 08/15/23 09:31 RACHEL Allergy Mild rash Uncoded 08/15/23 09:31 needing early removal Pollen Allergy Unknown runny nose Uncoded 08/15/23 09:31 Soy Allergy Allergy Unknown Uncoded 08/15/23 09:31 Sulfamethoxazole / Allergy Unknown nausea, GI Uncoded 08/15/23 09:31 trimethoprim upset dermbond AdvReac Unknown contact Uncoded 08/15/23 09:31 dermatitis Review of Systems Narrative: Otherwise negative unless stated in HPI PFSH PFS Medical History (Updated 08/28/23 @ 16:52 by Brian Subramanian DO) 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) ?I69.398 - Other sequelae of cerebral infarction (ICD-10) ?H54.7 - Unspecified visual loss (ICD-10) GERD (gastroesophageal reflux disease) ?K21.9 - Gastro-esophageal reflux disease without esophagitis (ICD-10) History of skin cancer ?Z85.828 - Personal history of other malignant neoplasm of skin (ICD-10) ELLEN (generalized anxiety disorder) ?F41.1 - Generalized anxiety disorder (ICD-10) Migraine ?G43.909 - Migraine, unspecified, not intractable, without status migrainosus (ICD-10) Polypharmacy ?Z79.899 - Other extermination inspector (current) drug therapy (ICD-10) Herpes labialis ?B00.1 - Herpesviral vesicular dermatitis (ICD-10) Restless legs syndrome ?G25.81 - Restless legs syndrome (ICD-10) Pyogenic arthritis of left shoulder region (03/25/21) ?M00.9 - Pyogenic arthritis, unspecified (ICD-10) Posttraumatic stress disorder ?F43.10 - Post-traumatic stress disorder, unspecified (ICD-10) Nicotine dependence ?F17.200 - Nicotine dependence, unspecified, uncomplicated (ICD-10) History of cerebrovascular accident ?Z86.73 - Personal history of transient ischemic attack (TIA), and cerebral infarction without residual deficits (ICD-10) Fibromyalgia ?M79.7 - Fibromyalgia (ICD-10) Cyclothymic disorder ?F34.0 - Cyclothymic disorder (ICD-10) Continuous opioid dependence (08/27/16) ?F11.20 - Opioid dependence, uncomplicated (ICD-10) Chronic obstructive pulmonary disease ?J44.9 - Chronic obstructive pulmonary disease, unspecified (ICD-10) Chronic neck pain ?M54.2 - Cervicalgia (ICD-10) ?G89.29 - Other chronic pain (ICD-10) Chronic back pain ?M54.9 - Dorsalgia, unspecified (ICD-10) ?G89.29 - Other chronic pain (ICD-10) Cerebral arteriosclerosis with history of previous cerebrovascular accident ?I67.2 - Cerebral atherosclerosis (ICD-10) ?Z86.73 - Personal history of transient ischemic attack (TIA), and cerebral infarction without residual deficits (ICD-10) Bipolar II disorder ?F31.81 - Bipolar II disorder (ICD-10) Ataxia due to cerebrovascular disease ?I67.9 - Cerebrovascular disease, unspecified (ICD-10) ?R27.0 - Ataxia, unspecified (ICD-10) Allergic rhinitis ?J30.9 - Allergic rhinitis, unspecified (ICD-10) Surgical History Status post insertion of spinal cord stimulator ?Z96.89 - Presence of other specified functional implants (ICD-10) History of tubal ligation ?Z98.51 - Tubal ligation status (ICD-10) History of total hysterectomy with bilateral salpingo-oophorectomy (BSO) ?Z90.710 - Acquired absence of both cervix and uterus (ICD-10) ?Z90.722 - Acquired absence of ovaries, bilateral (ICD-10) ?Z90.79 - Acquired absence of other genital organ(s) (ICD-10) History of spinal surgery ?Z98.890 - Other specified postprocedural states (ICD-10) History of sinus surgery ?Z98.890 - Other specified postprocedural states (ICD-10) History of nevus excision ?Z98.890 - Other specified postprocedural states (ICD-10) ?Z87.2 - Personal history of diseases of the skin and subcutaneous tissue (ICD-10) History of neck surgery ?Z98.890 - Other specified postprocedural states (ICD-10) History of mastopexy ?Z98.890 - Other specified postprocedural states (ICD-10) History of left shoulder replacement ?Z96.612 - Presence of left artificial shoulder joint (ICD-10) History of gastric bypass (1999) ?Z98.84 - Bariatric surgery status (ICD-10) History of foot surgery ?Z98.890 - Other specified postprocedural states (ICD-10) History of cholecystectomy ?Z90.49 - Acquired absence of other specified parts of digestive tract (ICD- 10) History of carpal tunnel release of both wrists (2017) ?Z98.890 - Other specified postprocedural states (ICD-10) History of bilateral cataract extraction ?Z98.41 - Cataract extraction status, right eye (ICD-10) ?Z98.42 - Cataract extraction status, left eye (ICD-10) History of arthroplasty of both knees ?Z96.653 - Presence of artificial knee joint, bilateral (ICD-10) History of abdominoplasty ?Z98.890 - Other specified postprocedural states (ICD-10) Family History Family/Other Breast cancer Lung cancer Father Cancer Coronary artery disease Sister Congenital heart defect Mother Pancreatic cancer, Onset Age: 60 Social History Narrative: medical marijuana use chronic narcotic use tobacco use Smoking Status: Current every day smoker What tobacco products do you use: cigarettes Smoking quit date/years: <= 15 years ago Do you use any of these nicotine containing products: E-Cigarettes and Vaping Products Second hand tobacco smoke exposure: No How often do you have a drink containing alcohol: never How often do you have six or more drinks on one occasion: Never AUDIT-C Alcohol total score: 0 Non-prescribed substance use: marijuana (any form) Caffeine: Yes Little interest or pleasure in doing things: more than half the days Feeling down, depressed, or hopeless: several days Are you using contraception or practicing any form of control: No service: No Exam Narrative: Exam Narrative: Const: Well-nourished, Well-developed, in mild distress Eyes: PERRL, no conjunctival injection, and symmetrical lids HENT: Atraumatic external nose and ears. Moist mucous membranes. MSK:Extremities w/o deformity, Normal Active ROM Skin: Warm, Dry. Healing surgical sites noted in the palm in the base of the flexor aspect of the wrist. Incision site at the palm abuse be healing by secondary intention and has feel mm of separation between the wound edges. The site and in a palm is together with some granulation tissue seen around it and mild erythema Neuro: Normal Muscle tone, No focal neurological deficits. Psych: Awake, Alert, & Oriented x3. Appropriate mood and affect. Const: Vital Signs, click to edit/add: Vital Signs - 24 hr 08/28/23 15:27 Temperature 98.5 F Pulse Rate [Pulse Oximeter] 93 Respiratory Rate 16 Blood Pressure [Ri ght Upper Arm] 126/71 Pulse Oximetry 97 Oxygen Delivery Me thod Room Air Course Vital Signs Vital signs: Initial Vital Signs Temperature 98.5 F 08/28/23 15:27 Temperature Source Temporal Artery Scan 08/28/23 15:27 Pulse Rate 93 08/28/23 15:27 Respiratory Rate 16 08/28/23 15:27 Blood Pressure 126/71 08/28/23 15:27 Blood Pressure Mean 89 08/28/23 15:27 Blood Pressure Position Sitting 08/28/23 15:27 Pulse Oximetry 97 08/28/23 15:27 Oxygen Delivery Method Room Air 08/28/23 15:27 Vital Signs Temperature 98.5 F 08/28/23 15:27 Pulse Rate 93 08/28/23 15:27 Respiratory Rate 16 08/28/23 15:27 Blood Pressure 126/71 08/28/23 15:27 Pulse Oximetry 97 08/28/23 15:27 Oxygen Delivery Method Room Air 08/28/23 15:27 Temperature 98.5 F 08/28/23 15:27 Pulse Rate 93 08/28/23 15:27 Respiratory Rate 16 08/28/23 15:27 Blood Pressure 126/71 08/28/23 15:27 Pulse Oximetry 97 08/28/23 15:27 Oxygen Delivery Method Room Air 08/28/23 15:27 Medical Decision Making MDM Narrative Medical decision making narrative: Patient is a 58-year-old female presented emergency department for a wound evaluation. I spoke to a consult to [facility] in the reviewed pictures of all the hand. They reviewed pictures of the hand is states the hand looks well went to be healing appropriately. They think she can be discharged home will follow up with her tomorrow in office. Considering placing the wound looks well when she is having no signs of worsening infection I do not believe any lab work. There is only mild erythema seen around the wound sites no obvious signs of infection. She has full range of motion of the hand and fingers. Patient be discharged home. She is on a pain contract for oxycodone was states has not been controlling the pain enough. One do believe she is in pain there is concerned he has also a pain seeker in the so will give her 6 pills of Vicodin. It should get her to her appointment with surgery tomorrow at 14:00 Discharge Plan Discharge Clinical Impression: Encounter for assessment of wound Patient Disposition: Home, Self-Care Condition: Stable Instructions: Pain Management After Surgery (DC) Additional Instructions: Follow-up with orthopedic surgery tomorrow 14:00. Prescriptions: New hydrocodone-acetaminophen 5-325 mg tablet 1 tab PO Q6H PRN (Reason: pain) Qty: 6 0RF No Action cholecalciferol (vitamin D3) 125 mcg (5,000 unit) tablet 5,000 unit PO DAILY cyanocobalamin (vitamin B-12) 2,500 mcg tablet 5,000 mcg PO DAILY hydrocortisone [Anti-Itch (HC)] 1 % cream 1 applic topical BID-QID PRN (Reason: itching) Qty: 28.35 0RF oxycodone 10 mg tablet 10 mg PO QID PRN bupropion HCl 300 mg tablet extended release 24 hr 300 mg PO QAM Qty: 90 3RF triamcinolone acetonide 0.1 % cream 1 applic topical BID Qty: 453.6 0RF diclofenac sodium 1 % gel 2 g topical QID Qty: 100 2RF polyethylene glycol 3350 17 gram/dose powder 17 g PO QDAY PRN benzonatate 100 mg capsule 100 mg PO TID PRN (Reason: cough) Qty: 30 1RF hydroxyzine pamoate 25 mg capsule 25 mg PO Q8H PRN (Reason: itching) Qty: 40 1RF magnesium oxide 400 mg (241.3 mg magnesium) tablet 400 mg PO QDAY Qty: 90 3RF budesonide-formoterol [Symbicort] 160-4.5 mcg/actuation HFA aerosol inhaler 2 puff inhalation BID Qty: 10.2 5RF ropinirole 1 mg tablet 1 mg PO BID Qty: 180 3RF Rx Instructions: 1 Qpm and 1 QHS quetiapine 100 mg tablet 200 mg PO QHS Qty: 180 1RF buspirone 15 mg tablet 10 mg PO BID PRN (Reason: anxiety) Qty: 60 2RF cephalexin 500 mg capsule 500 mg PO QID Qty: 56 0RF Magic Mouthwash (Lidocaine/Benadryl/Maalox) 120 mL suspension 5 - 10 ml PO QID PRNQty: 120 0RF Rx Instructions: Lidocaine Viscous 2 % mucosal solution 40 mL; Maalox 200 mg-200 mg-20 mg/5 mL oral suspension 40 mL; Benadryl 12.5 mg/5 mL oral elixir 40 mL; Per 120 mL SWISH AND SPIT. MAY COMPOUND IF FIRST PRODUCT IS NOT AVAILABLE. aspirin 81 mg tablet,delayed release (DR/EC) 81 mg PO QDAY Qty: 90 3RF meclizine [Dramamine (meclizine)] 25 mg tablet 25 mg PO Q8H PRN (Reason: dizziness) Qty: 30 1RF sumatriptan 5 mg/actuation spray,non-aerosol 5 mg intranasal ONCE PRN (Reason: migraine headache) Qty: 6 5RF Rx Instructions: 1-2 SPRAYS IN ONE NOSTRIL AT ONSET OF HEADACHE, MAY REPEAT Q2H PRN, MAX 4 SPRAYS/24 HRS tizanidine 4 mg tablet 4 mg PO Q8H PRN (Reason: muscle spasticity) Qty: 30 1RF ondansetron HCl 4 mg tablet 4 mg PO Q6H PRN (Reason: nausea and vomiting) Qty: 30 2RF fluoxetine [Prozac] 40 mg capsule 40 mg PO QAM Qty: 90 3RF valacyclovir 500 mg tablet 500 mg PO DAILY Qty: 90 3RF lamotrigine 200 mg tablet 200 mg PO BID Qty: 60 12RF cetirizine [Zyrtec] 10 mg tablet 10 mg PO QDAY Qty: 90 3RF albuterol sulfate [Ventolin HFA] 90 mcg/actuation HFA aerosol inhaler 2 puff inhalation Q6H PRN (Reason: shortness of breath or wheezing) Qty: 8.5 2RF rizatriptan 10 mg tablet 10 mg PO ONCE PRN (Reason: migraine headache) Qty: 18 2RF Rx Instructions: TAKE ONE TAB AT ONSET OF HEADACHE, MAY REPEAT Q2H PRN, MAX 30 MG/24 HRS, must last a month pregabalin 300 mg capsule 300 mg PO BID Qty: 60 2RF furosemide [Lasix] 40 mg tablet 40 mg PO QAM Qty: 30 1RF acetaminophen 650 mg tablet extended release 1,300 mg PO .Every 8 Hours Qty: 180 12RF omeprazole 40 mg capsule,delayed release(DR/EC) 40 mg PO QDAY Qty: 30 5RF atorvastatin 40 mg tablet 40 mg PO DAILY Qty: 30 0RF Follow Up/Referrals: Clemente Blackwell MD [Primary Care Provider] - Stand Alone Forms: [facility] Info Instructions
--- NOTE | 2023-08-28 16:14 | ED.NURSE ---
Patient left with ortho appointment in place for 08/29/2023. She left before discharge instructions were completed. She did not want to wait, let her know that a prescription will be sent to [facility] in the near future.
== END 2023-08-28 16:38 | disposition home or self-care (01) ==
PROVIDERS: Emergency Provider Student in an Organized Health Care Education/Training Program; PCP Family Medicine
DX: L76.82 Other postprocedural complications of skin and subcutaneous tissue (principal)
CPT/HCPCS: 80048; 85025; 99282

== ENCOUNTER 2023-09-14 12:50 | Outpatient (CLI) | payer MEDICARE, SELFPAY ==
--- NOTE | 2023-09-14 13:00 | CRLHL7_ITS ---
For Patients: As a result of the Century Cures Act, medical imaging exams and procedure reports are released immediately into your electronic medical record. You may view this report before your referring provider. If you have questions, please contact your health care provider. Indication: Low back pain. Technique: Multisequence multiplanar MRI of the lumbar spine without contrast. Comparison: Correlated with CT lumbar spine dated 11/10/2018. Findings: Operative changes of posterior decompression and interbody disc spacer placement at L4-L5 and L5-S1. Posterior aspects of the vertebral bodies are aligned. There is similar severe intervertebral disc height loss at the L2-L3 level. Bone marrow signal intensity is within normal limits. The cauda equina terminates normally at the L1-L2 level. A 1.4 cm left parapelvic cyst is unchanged. Evaluation of the individual levels demonstrates: T12-L1: Facet joint hypertrophy results in mild narrowing of the right lateral recess. No significant neural foraminal narrowing. Stimulator lead enters the spinal canal posteriorly. L1-L2: No significant spinal canal stenosis. Mild bilateral neural foraminal narrowing from facet joint hypertrophy. L2-L3: No significant spinal canal stenosis. Mild right and moderate left neural foraminal narrowing largely from facet joint hypertrophy. L3-L4: Mild spinal canal stenosis and moderate bilateral neural foraminal narrowing from facet joint hypertrophy and disc bulging. Left facet joint effusion. L4-L5 and L5-S1: Postoperative changes. Patent thecal sac. No high-grade neural foraminal narrowing. Impression: 1. Re-demonstrated operative changes of posterior decompression and interbody disc spacer placement at L4-L5 and L5-S1. No MR evidence of hardware complication. 2. Overall similar appearance of multilevel degenerative changes in comparison to prior CT dated 11/10/2018. 3. At L2-L3, severe intervertebral disc height loss and moderate left neural foraminal narrowing. 4. At L3-L4, mild spinal canal stenosis, moderate bilateral neural foraminal narrowing, and left facet joint effusion. Dictated by Peter Samuels MD @ 09/15/2023 1:53:35 PM (Electronically Signed)
--- NOTE | 2023-09-14 13:45 | CRLHL7_ITS ---
For Patients: As a result of the Century Cures Act, medical imaging exams and procedure reports are released immediately into your electronic medical record. You may view this report before your referring provider. If you have questions, please contact your health care provider. Indication: Back pain. Technique: Multiplanar, multisequence MRI of the thoracic spine, obtained without contrast. Comparison: None available. Findings: Partially imaged fusion hardware extending from T1-T3. Exaggerated upper thoracic kyphosis with apex curvature at approximately T4-T5. Posterior aspects of the vertebral bodies are aligned. Vertebral body heights are maintained. A T5 vertebral body hemangiomas noted. A spinal stimulator lead terminates at the T7 level. No abnormal spinal cord signal intensity. Apparent intramedullary T2 hyperintensity at the T11 level (series 8, image 27) with no corresponding signal abnormality on sagittal T2 weighted imaging, favored to be artifactual related to susceptibility from adjacent spinal stimulator. Evaluation of the individual levels demonstrates multilevel facet joint hypertrophy with no high-grade spinal canal or neural foraminal stenosis. Impression: 1. Partially imaged fusion hardware extending from T1-T3. No MR evidence of hardware complication. 2. Exaggerated thoracic kyphosis with apex curvature at approximately T4-T5. 3. No high-grade spinal canal or neural foraminal stenosis. 4. No abnormal spinal cord signal intensity. Apparent intramedullary hyperintensity at the T11 level favored to be artifactual related to susceptibility artifact emanating from the adjacent spinal stimulator device. Dictated by Peter Samuels MD @ 09/15/2023 2:37:49 PM (Electronically Signed)
== END 2023-09-14 12:51 | disposition home or self-care (01) ==
LOC: MRI 12:51
PROVIDERS: PCP Family Medicine; Visit Provider Orthopaedic Surgery
DX: M54.50 Low back pain, unspecified (principal); M48.061 Spinal stenosis, lumbar region without neurogenic claudication; M51.26 Other intervertebral disc displacement, lumbar region; M54.9 Dorsalgia, unspecified
CPT/HCPCS: 72146; 72148

== ENCOUNTER 2023-09-17 14:12 | Emergency (ER) | payer MEDICARE, SELFPAY ==
[2023-09-17 14:19] VITALS: BP 151/80; PULSE 78; RESP 16; TEMP 36.7; O2SAT 96; BMI 29.3
[2023-09-17 14:33] LABS: Appearance Urine Clear (Clear); Bilirubin Urine Negative (Negative); Blood Urine Trace-intact (Negative); Color Urine Yellow (Yellow); Glucose Urine Negative (Negative); Ketones Urine Negative (Negative); Leukocyte Esterase Urine Trace (Negative); Nitrite Urine Negative (Negative); Protein Urine Negative (Negative); Specific Gravity Urine <= 1.005 (1.000-1.030); Urobilinogen Urine 0.2 (0.2-1.0); pH Urine 5.5 (5.0-8.5)
--- NOTE | 2023-09-17 14:43 | ED_ITS ---
HPI - General Adult General Chief complaint: Unspecified Complaint, Adult Stated complaint: Hand and spine pain. Prev infection Time Seen by Provider: 09/17/23 14:17 History of Present Illness HPI narrative: This 58-year-old female comes in with concern that her surgical wound on her rig ht hand may be developing an infection. She also has chronic pain in his reporting pain in her right hand and in her low back. She was seen for the same complaint here about 3 weeks ago and did follow-up with orthopedic clinic. In both visits there was no suspicion of infection in the wound of her right hand where a repair of a trigger finger was done. She does not report any fevers. She has a history of gastric bypass and is currently taking oxycodone 10 mg. She states that this medicine does not work at all anymore. She also states that she has some increased urinary frequency. Related Data Home Medications Medication Instructions Recorded Confirmed cholecalciferol (vitamin D3) 125 5,000 unit PO DAILY 06/07/22 09/05/23 mcg (5,000 unit) tablet cyanocobalamin (vitamin B-12) 5,000 mcg PO DAILY 06/07/22 09/05/23 2,500 mcg tablet polyethylene glycol 3350 17 17 g PO QDAY PRN 11/08/22 09/05/23 gram/dose oral powder oxycodone 10 mg tablet 10 mg PO QID PRN 03/08/23 09/05/23 Previous Rx's Medication Instructions Recorded aspirin 81 mg tablet,delayed 81 mg PO QDAY #90 tabs 07/23/22 release diclofenac sodium 1 % topical gel 2 g topical QID #100 grams 08/23/22 triamcinolone acetonide 0.1 % 1 applic topical BID #453.6 grams 08/23/22 topical cream hydrocortisone 1 % topical cream 1 applic topical BID-QID PRN 09/16/22 (Anti-Itch (hydrocortisone)) itching #28.35 grams benzonatate 100 mg capsule 100 mg PO TID PRN cough #30 caps 12/27/22 budesonide-formoterol HFA 160 2 puff inhalation BID #10.2 grams 12/27/22 mcg-4.5 mcg/actuation aerosol inhaler (Symbicort) hydroxyzine pamoate 25 mg capsule 25 mg PO Q8H PRN itching #40 caps 12/27/22 magnesium oxide 400 mg (241.3 mg 400 mg PO QDAY #90 tabs 12/27/22 magnesium) tablet meclizine 25 mg tablet (Dramamine 25 mg PO Q8H PRN dizziness #30 tabs 01/19/23 (meclizine)) sumatriptan 5 mg/actuation nasal 5 mg intranasal ONCE PRN migraine 02/11/23 spray headache #6 ea tizanidine 4 mg tablet 4 mg PO Q8H PRN muscle spasticity 02/28/23 #30 tabs bupropion HCl 300 mg 24 hr tablet, 300 mg PO QAM #90 tabs 04/04/23 extended release ondansetron HCl 4 mg tablet 4 mg PO Q6H PRN nausea and 04/05/23 vomiting #30 tabs Magic Mouthwash 5 - 10 ml PO QID PRN #120 mL 05/13/23 (Lidocaine/Benadryl/Maalox) 120 mL suspension fluoxetine 40 mg capsule (Prozac) 40 mg PO QAM #90 caps 05/30/23 valacyclovir 500 mg tablet 500 mg PO DAILY cold sores #90 tabs 05/30/23 cetirizine 10 mg tablet (Zyrtec) 10 mg PO QDAY #90 tabs 06/30/23 lamotrigine 200 mg tablet 200 mg PO BID #60 tabs 06/30/23 albuterol sulfate 90 mcg/actuation 2 puff inhalation Q6H PRN 07/06/23 aerosol inhaler (Ventolin HFA) shortness of breath or wheezing #8.5 grams rizatriptan 10 mg tablet 10 mg PO ONCE PRN migraine 07/06/23 headache #18 tabs pregabalin 300 mg capsule 300 mg PO BID #60 caps 07/12/23 furosemide 40 mg tablet (Lasix) 40 mg PO QAM #30 tabs 07/28/23 buspirone 15 mg tablet 10 mg (0.6667 x 15 mg) PO BID PRN 07/29/23 anxiety #60 tabs quetiapine 100 mg tablet 200 mg (2 x 100 mg) PO QHS sleep 07/29/23 #180 tabs ropinirole 1 mg tablet 1 mg PO BID #180 tabs 07/29/23 atorvastatin 40 mg tablet 40 mg PO DAILY #30 tabs 08/26/23 omeprazole 40 mg capsule,delayed 40 mg PO QDAY #30 caps 08/26/23 release acetaminophen 650 mg 1,300 mg (2 x 650 mg) PO .Every 8 09/03/23 tablet,extended release Hours #180 tabs hydroxyzine HCl 25 mg tablet 25 mg PO QID #20 tabs 09/17/23 Allergies Allergy/AdvReac Type Severity Reaction Status Date / Time acyclovir Allergy Mild rash Verified 09/17/23 14:23 shingles like benzoin Allergy Mild rash, Verified 09/17/23 14:23 blisters, itching Cephalosporins Allergy Mild Rash Verified 09/17/23 14:23 penicillin V Allergy Mild Rash Verified 09/17/23 14:23 adhesive Allergy Unknown contact Verified 09/17/23 14:23 dermatitis to tape amoxicillin Allergy Unknown Rash Verified 09/17/23 14:23 baclofen Allergy Unknown Rash Verified 09/17/23 14:23 cefaclor Allergy Unknown Rash Verified 09/17/23 14:23 chlorhexidine Allergy Unknown contact Verified 09/17/23 14:23 dermatitis fentanyl Allergy Unknown Hallucinati Verified 09/17/23 14:23 ng gabapentin Allergy Unknown muscular Verified 09/17/23 14:23 twitch, slurred speech nortriptyline Allergy Unknown Palpitation Verified 09/17/23 14:23 s NSAIDS (Non-Steroidal Allergy Unknown gastric Verified 09/17/23 14:23 Anti-Inflamma bypass silver Allergy Unknown contact Verified 09/17/23 14:23 dermatitis Milk solids Allergy Intermediate Vomiting Uncoded 09/05/23 10:47 RACHEL Allergy Mild rash Uncoded 09/05/23 10:47 needing early removal Pollen Allergy Unknown runny nose Uncoded 09/05/23 10:47 Soy Allergy Allergy Unknown Uncoded 09/05/23 10:47 Sulfamethoxazole / Allergy Unknown nausea, GI Uncoded 09/05/23 10:47 trimethoprim upset dermbond AdvReac Unknown contact Uncoded 09/05/23 10:47 dermatitis Review of Systems Status of ROS: Reports: 10 or more systems reviewed and unremarkable except as noted in History and below Narrative: Constitutional: No fevers, no weight gain or loss. Eyes: No discharge. No vision changes. HENT: No congestion, no sore throat, no ear pain. Cardiovascular: No chest pain, no palpitations. Respiratory: No shortness of breath, no wheezes, no cough. Gastrointestinal: No abdominal pain, no vomiting, no diarrhea. Genitourinary: No hematuria. Increased urinary frequency. Musculoskeletal: Normal range of motion. Surgical wound in her right hand. Skin: No rashes, no pruritis. Neurological: No dizziness, weakness, sensory change, speech change. Endo/Heme/Allergies: No bruising or bleeding. No polydipsia. Pysch: no suicidality, no anxiety, no insomnia. All other systems reviewed and are negative. [facility] Medical History 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) ?I69.398 - Other sequelae of cerebral infarction (ICD-10) ?H54.7 - Unspecified visual loss (ICD-10) GERD (gastroesophageal reflux disease) ?K21.9 - Gastro-esophageal reflux disease without esophagitis (ICD-10) History of skin cancer ?Z85.828 - Personal history of other malignant neoplasm of skin (ICD-10) ELLEN (generalized anxiety disorder) ?F41.1 - Generalized anxiety disorder (ICD-10) Migraine ?G43.909 - Migraine, unspecified, not intractable, without status migrainosus (ICD-10) Polypharmacy ?Z79.899 - Other long term care administrator (current) drug therapy (ICD-10) Herpes labialis ?B00.1 - Herpesviral vesicular dermatitis (ICD-10) Restless legs syndrome ?G25.81 - Restless legs syndrome (ICD-10) Pyogenic arthritis of left shoulder region (03/25/21) ?M00.9 - Pyogenic arthritis, unspecified (ICD-10) Posttraumatic stress disorder ?F43.10 - Post-traumatic stress disorder, unspecified (ICD-10) Nicotine dependence ?F17.200 - Nicotine dependence, unspecified, uncomplicated (ICD-10) History of cerebrovascular accident ?Z86.73 - Personal history of transient ischemic attack (TIA), and cerebral infarction without residual deficits (ICD-10) Fibromyalgia ?M79.7 - Fibromyalgia (ICD-10) Cyclothymic disorder ?F34.0 - Cyclothymic disorder (ICD-10) Continuous opioid dependence (08/27/16) ?F11.20 - Opioid dependence, uncomplicated (ICD-10) Chronic obstructive pulmonary disease ?J44.9 - Chronic obstructive pulmonary disease, unspecified (ICD-10) Chronic neck pain ?M54.2 - Cervicalgia (ICD-10) ?G89.29 - Other chronic pain (ICD-10) Chronic back pain ?M54.9 - Dorsalgia, unspecified (ICD-10) ?G89.29 - Other chronic pain (ICD-10) Cerebral arteriosclerosis with history of previous cerebrovascular accident ?I67.2 - Cerebral atherosclerosis (ICD-10) ?Z86.73 - Personal history of transient ischemic attack (TIA), and cerebral infarction without residual deficits (ICD-10) Bipolar II disorder ?F31.81 - Bipolar II disorder (ICD-10) Ataxia due to cerebrovascular disease ?I67.9 - Cerebrovascular disease, unspecified (ICD-10) ?R27.0 - Ataxia, unspecified (ICD-10) Allergic rhinitis ?J30.9 - Allergic rhinitis, unspecified (ICD-10) Surgical History Status post trigger finger release (08/13/23) ?Z98.890 - Other specified postprocedural states (ICD-10) History of carpal tunnel surgery of right wrist (07/2023) ?Z98.890 - Other specified postprocedural states (ICD-10) Status post insertion of spinal cord stimulator ?Z96.89 - Presence of other specified functional implants (ICD-10) History of tubal ligation ?Z98.51 - Tubal ligation status (ICD-10) History of total hysterectomy with bilateral salpingo-oophorectomy (BSO) ?Z90.710 - Acquired absence of both cervix and uterus (ICD-10) ?Z90.722 - Acquired absence of ovaries, bilateral (ICD-10) ?Z90.79 - Acquired absence of other genital organ(s) (ICD-10) History of spinal surgery ?Z98.890 - Other specified postprocedural states (ICD-10) History of sinus surgery ?Z98.890 - Other specified postprocedural states (ICD-10) History of nevus excision ?Z98.890 - Other specified postprocedural states (ICD-10) ?Z87.2 - Personal history of diseases of the skin and subcutaneous tissue (ICD-10) History of neck surgery ?Z98.890 - Other specified postprocedural states (ICD-10) History of mastopexy ?Z98.890 - Other specified postprocedural states (ICD-10) History of left shoulder replacement ?Z96.612 - Presence of left artificial shoulder joint (ICD-10) History of gastric bypass (1999) ?Z98.84 - Bariatric surgery status (ICD-10) History of foot surgery ?Z98.890 - Other specified postprocedural states (ICD-10) History of cholecystectomy ?Z90.49 - Acquired absence of other specified parts of digestive tract (ICD- 10) History of carpal tunnel release of both wrists (2017) ?Z98.890 - Other specified postprocedural states (ICD-10) History of bilateral cataract extraction ?Z98.41 - Cataract extraction status, right eye (ICD-10) ?Z98.42 - Cataract extraction status, left eye (ICD-10) History of arthroplasty of both knees ?Z96.653 - Presence of artificial knee joint, bilateral (ICD-10) History of abdominoplasty ?Z98.890 - Other specified postprocedural states (ICD-10) Family History Family/Other Breast cancer Lung cancer Father Cancer Coronary artery disease Sister Congenital heart defect Mother Pancreatic cancer, Onset Age: 60 Social History (Reviewed 08/29/23 @ 14:24 by Ofelia Marcano ~ [facility] [place], [employer]) Narrative: medical marijuana use chronic narcotic use tobacco use Smoking Status: Current every day smoker What tobacco products do you use: cigarettes Smoking quit date/years: <= 15 years ago Do you use any of these nicotine containing products: E-Cigarettes and Vaping Products Second hand tobacco smoke exposure: No How often do you have a drink containing alcohol: never How often do you have six or more drinks on one occasion: Never AUDIT-C Alcohol total score: 0 Non-prescribed substance use: marijuana (any form) Caffeine: Yes Little interest or pleasure in doing things: more than half the days Feeling down, depressed, or hopeless: several days Are you using contraception or practicing any form of control: No service: No Exam Narrative: Exam Narrative: Constitutional: Well-developed, well-nourished, no acute distress. HEENT: Normocephalic, atraumatic. Neck: Normal range of motion. Nontender. Supple. Heart: Intact distal pulses. Lungs: No chest discomfort. No wheezes, rhonchi, or rales. Abdomen: Nontender. Back: Normal range of motion. She complains of back pain but has normal range of motion and seems to move around without much difficulty. Extremities: Normal range of motion. Normal healing surgical wound of the right hand without any sign of drainage or erythema typical of infection. Skin: Intact. No rash. Warm. No erythema or pallor. Neurologic: No altered sensation. No weakness. Alert and oriented. Psychiatric: No suicidality. No anxiety or depression. No insomnia. Nursing notes and vitals signs are reviewed. Const: Vital Signs, click to edit/add: Vital Signs - 24 hr 09/17/23 14:19 Temperature 98.0 F Pulse Rate [Right Pulse Oximeter] 78 Respiratory Rate 16 Blood Pressure [Ri ght Upper Arm] 151/80 H Pulse Oximetry 96 Oxygen Delivery Me thod Room Air Course Vital Signs Vital signs: Initial Vital Signs Temperature 98.0 F 09/17/23 14:19 Temperature Source Temporal Artery Scan 09/17/23 14:19 Pulse Rate 78 09/17/23 14:19 Pulse Rhythm Regular 09/17/23 14:19 Pulse Strength 3+ Normal 09/17/23 14:19 Respiratory Rate 16 09/17/23 14:19 Blood Pressure 151/80 H 09/17/23 14:19 Blood Pressure Mean 103 09/17/23 14:19 Blood Pressure Position Sitting 09/17/23 14:19 Pulse Oximetry 96 09/17/23 14:19 Oxygen Delivery Method Room Air 09/17/23 14:19 Vital Signs Temperature 98.0 F 09/17/23 14:19 Pulse Rate 78 09/17/23 14:19 Respiratory Rate 16 09/17/23 14:19 Blood Pressure 151/80 H 09/17/23 14:19 Pulse Oximetry 96 09/17/23 14:19 Oxygen Delivery Method Room Air 09/17/23 14:19 Temperature 98.0 F 09/17/23 14:19 Pulse Rate 78 09/17/23 14:19 Respiratory Rate 16 09/17/23 14:19 Blood Pressure 151/80 H 09/17/23 14:19 Pulse Oximetry 96 09/17/23 14:19 Oxygen Delivery Method Room Air 09/17/23 14:19 Medical Decision Making MDM Narrative Medical decision making narrative: This patient comes in thinking that she has an infection in her right hand now and states that she gets shooting pain into her fingers. She reports that her oxycodone 10 mg is not helping her pain at all. She does have chronic pain in her back. The patient does have history of gastric bypass and is not to take NSAIDs but I did administer a 1 time intramuscular injection of Toradol 30 mg. I stated that she will need to have her pain medicines managed by her primary physician. She did supply a urine sample which returns with no evidence of infection. Lab Data Labs: Lab Results 09/17/23 Range/Units 14:20 Urine Color Yellow (Yellow) Urine Appearance Clear (Clear) Urine pH 5.5 (5.0-8.5) Ur Specific [place] <= 1.005 (1.000-1.030) Urine Protein Negative (Negative) Urine Glucose (UA) Negative (Negative) Urine Ketones Negative (Negative) Urine Blood Trace-intact A (Negative) Urine Nitrite Negative (Negative) Urine Bilirubin Negative (Negative) Urine Urobilinogen 0.2 (0.2-1.0) Ur Leukocyte Esterase Trace A (Negative) Urine RBC 2-5 A (0-2) Urine WBC 2-5 (0-5) Ur Squamous Epith Cells Few (None-Few) Urine Bacteria None (None) Discharge Plan Discharge Clinical Impression: Chronic back pain, Continuous opioid dependence Patient Disposition: Home, Self-Care Condition: Unchanged Additional Instructions: Continue current plans. Follow up with primary physician for ongoing management of pain. Return if worsening symptoms occur. Prescriptions: New hydroxyzine HCl 25 mg tablet 25 mg PO QID Qty: 20 0RF No Action cholecalciferol (vitamin D3) 125 mcg (5,000 unit) tablet 5,000 unit PO DAILY cyanocobalamin (vitamin B-12) 2,500 mcg tablet 5,000 mcg PO DAILY hydrocortisone [Anti-Itch (HC)] 1 % cream 1 applic topical BID-QID PRN (Reason: itching) Qty: 28.35 0RF oxycodone 10 mg tablet 10 mg PO QID PRN bupropion HCl 300 mg tablet extended release 24 hr 300 mg PO QAM Qty: 90 3RF triamcinolone acetonide 0.1 % cream 1 applic topical BID Qty: 453.6 0RF diclofenac sodium 1 % gel 2 g topical QID Qty: 100 2RF polyethylene glycol 3350 17 gram/dose powder 17 g PO QDAY PRN benzonatate 100 mg capsule 100 mg PO TID PRN (Reason: cough) Qty: 30 1RF hydroxyzine pamoate 25 mg capsule 25 mg PO Q8H PRN (Reason: itching) Qty: 40 1RF magnesium oxide 400 mg (241.3 mg magnesium) tablet 400 mg PO QDAY Qty: 90 3RF budesonide-formoterol [Symbicort] 160-4.5 mcg/actuation HFA aerosol inhaler 2 puff inhalation BID Qty: 10.2 5RF ropinirole 1 mg tablet 1 mg PO BID Qty: 180 3RF Rx Instructions: 1 Qpm and 1 QHS quetiapine 100 mg tablet 200 mg PO QHS Qty: 180 1RF buspirone 15 mg tablet 10 mg PO BID PRN (Reason: anxiety) Qty: 60 2RF Magic Mouthwash (Lidocaine/Benadryl/Maalox) 120 mL suspension 5 - 10 ml PO QID PRNQty: 120 0RF Rx Instructions: Lidocaine Viscous 2 % mucosal solution 40 mL; Maalox 200 mg-200 mg-20 mg/5 mL oral suspension 40 mL; Benadryl 12.5 mg/5 mL oral elixir 40 mL; Per 120 mL SWISH AND SPIT. MAY COMPOUND IF FIRST PRODUCT IS NOT AVAILABLE. aspirin 81 mg tablet,delayed release (DR/EC) 81 mg PO QDAY Qty: 90 3RF meclizine [Dramamine (meclizine)] 25 mg tablet 25 mg PO Q8H PRN (Reason: dizziness) Qty: 30 1RF sumatriptan 5 mg/actuation spray,non-aerosol 5 mg intranasal ONCE PRN (Reason: migraine headache) Qty: 6 5RF Rx Instructions: 1-2 SPRAYS IN ONE NOSTRIL AT ONSET OF HEADACHE, MAY REPEAT Q2H PRN, MAX 4 SPRAYS/24 HRS tizanidine 4 mg tablet 4 mg PO Q8H PRN (Reason: muscle spasticity) Qty: 30 1RF ondansetron HCl 4 mg tablet 4 mg PO Q6H PRN (Reason: nausea and vomiting) Qty: 30 2RF fluoxetine [Prozac] 40 mg capsule 40 mg PO QAM Qty: 90 3RF valacyclovir 500 mg tablet 500 mg PO DAILY Qty: 90 3RF lamotrigine 200 mg tablet 200 mg PO BID Qty: 60 12RF cetirizine [Zyrtec] 10 mg tablet 10 mg PO QDAY Qty: 90 3RF albuterol sulfate [Ventolin HFA] 90 mcg/actuation HFA aerosol inhaler 2 puff inhalation Q6H PRN (Reason: shortness of breath or wheezing) Qty: 8.5 2RF rizatriptan 10 mg tablet 10 mg PO ONCE PRN (Reason: migraine headache) Qty: 18 2RF Rx Instructions: TAKE ONE TAB AT ONSET OF HEADACHE, MAY REPEAT Q2H PRN, MAX 30 MG/24 HRS, must last a month pregabalin 300 mg capsule 300 mg PO BID Qty: 60 2RF furosemide [Lasix] 40 mg tablet 40 mg PO QAM Qty: 30 1RF omeprazole 40 mg capsule,delayed release(DR/EC) 40 mg PO QDAY Qty: 30 5RF atorvastatin 40 mg tablet 40 mg PO DAILY Qty: 30 0RF acetaminophen 650 mg tablet extended release 1,300 mg PO .Every 8 Hours Qty: 180 12RF Follow Up/Referrals: Clemente Blackwell MD [Primary Care Provider] - Stand Alone Forms: [facility] Info Instructions
[2023-09-17] MEDS: KETOROLAC 30 MG/ML inj IM (14:45)
[2023-09-17 14:47] LABS: Squamous Epithelial Cell Urine Few (None-Few)
== END 2023-09-17 15:08 | disposition home or self-care (01) ==
PROVIDERS: Emergency Provider Emergency Medicine Emergency Medical Services; PCP Family Medicine
DX: M79.641 Pain in right hand (principal); M54.9 Dorsalgia, unspecified; F11.20 Opioid dependence, uncomplicated
CPT/HCPCS: 81001; 96372; 99283; 99284; J1885

== ENCOUNTER 2023-10-19 06:14 | Day surgery (SDC) | payer MEDICARE, OTHER, SELFPAY ==
[2023-10-18] MEDS: LACTATED RINGERS 1000 ML 1,000 ML 100 ML IV (07:20)
[2023-10-19 06:38] VITALS: BP 116/87; PULSE 84; RESP 16; TEMP 36.9; O2SAT 94; BMI 32.1
[2023-10-19] MEDS: LACTATED RINGERS 1000 ML 1,000 ML 35 ML IV (07:00)
--- NOTE | 2023-10-19 07:26 | P.ORPRC_ITS ---
Procedure Note Date of procedure: 10/19/23 Procedure: Preop diagnosis: Left upper extremity carpal tunnel syndrome, left hand middle finger stenosing tenosynovitis Postop diagnosis: Left upper extremity carpal tunnel syndrome, left hand middle finger stenosing tenosynovitis Procedure: Left upper extremity carpal tunnel release, left hand middle finger A1 paxton release Anesthesia: Local plus monitored anesthesia care Surgeon: Antoine Simmons MD child nutrition assistant: COBY Wright EBL: 5 mL Complications: None Specimens: None Drains: None Preoperative antibiotics: Ancef 1 g Indications: The patient has a history of left upper extremity carpal tunnel syndrome, left hand middle finger stenosing tenosynovitis symptoms. Despite appropriate nonoperative management consisting of nighttime bracing and occupational therapy they continue to have symptoms. Operative intervention was recommended. The risks, benefits alternatives and expected outcomes were discussed in detail. These included but were not limited to: Infection, bleeding, injury to blood vessel or nerve, venous thromboembolism. All questions were answered to their satisfaction. The patient was placed supine on the operating room table, IV sedation was administered. Local anesthesia was established with 0.5% Marcaine without epinephrine and 2% lidocaine without epinephrine. The hand was prepped and draped in usual sterile fashion. The limb was elevated the forearm pneumatic tourniquet was inflated to 250 mm of mercury. A longitudinal incision was made centered over the radial border of the ring finger at the base of the palm. Subcutaneous dissection was sharply taken through the palmar fascia and the palmaris brevis to the transverse carpal ligament. The ligament was divided in line with the incision. The nerve was densely adherent to the deep side of the transverse ligament and the flexor tendons. A limited neuro lysis was done with the tenotomy scissors. Proximal and distal dissection was carried with tenotomy and Metzenbaum scissors for a wide decompression of the carpal tunnel. Attention was then turned to the middle finger. A transverse incision was made in the distal palmar crease. Subcutaneous dissection was taken with tenotomy scissors to the flexor tendons. The A1 paxton was divided longitudinally with the 15 blade and the tenotomy scissors. The tourniquet was released, bleeding was controlled with direct pressure. The wounds were closed with a 3-0 nylon. A bulky dry dressing was applied, sponge and needle counts were correct x 2. The patient tolerated the procedure well, there were no apparent complications. They were sent to same day surgery in satisfactory condition. Plan: Use of the hand as tolerates. Discontinue the intraoperative dressing on postoperative day 3 and may get the wound wet as tolerates. Follow up in the office in 2 weeks for a wound check and suture removal.
[2023-10-19] MEDS: SODIUM CHLORIDE 0.9 % (FLUSH) 10 ML SYRINGE IVF (07:29)
[2023-10-19] MEDS: CEFAZOLIN 2 GM INJ IVP (07:35)
[2023-10-19] MEDS: BUPIVACAINE 0.5% 30 ML INJECTION (07:39)
[2023-10-19] MEDS: lidocaine HCL 2 % MULTIDOSE 20 ML VIAL INJECTION (07:39)
--- NOTE | 2023-10-19 07:51 | W.ANESCHARGE ---
Anesthesia Charges Start Date/Time Anesthesia Start Date: 10/19/23 Anesthesia Start Time: 07:26 Stop Date/Time Anesthesia Stop Date: 10/19/23 Anesthesia Stop Time: 08:28
[2023-10-19 08:27] VITALS: BP 118/72; PULSE 78; RESP 14; TEMP 36.6; O2SAT 90
--- NOTE | 2023-10-19 08:34 | W.ANESCHARGE ---
Anesthesia Charges Start Date/Time Anesthesia Start Date: 10/19/23 Anesthesia Start Time: 07:26 Stop Date/Time Anesthesia Stop Date: 10/19/23 Anesthesia Stop Time: 08:28
[2023-10-19] MEDS: ALBUTEROL SULFATE 2.5 MG/3 ML VIAL.NEB NEB (08:35)
[2023-10-19 08:43] VITALS: BP 106/81; PULSE 71; RESP 12; O2SAT 96
== END 2023-10-19 09:06 | disposition home or self-care (01) ==
PROVIDERS: PCP Family Medicine; Visit Provider Orthopaedic Surgery
PROC: (CPT 64721; principal; 2023-10-19 07:30)
PROC: (CPT 26055; 2023-10-19 07:30)
DX: G56.02 Carpal tunnel syndrome, left upper limb (principal); M65.332 Trigger finger, left middle finger; M65.842 Other synovitis and tenosynovitis, left hand
CPT/HCPCS: 64721; 26055; 01810; 94640; J0665; J0690; J2250; J2704; J3010; J7120

== ENCOUNTER 2023-10-28 15:07 | Emergency (ER) | payer MEDICARE, OTHER, SELFPAY ==
[2023-10-28 15:36] VITALS: BP 115/66; PULSE 87; RESP 16; TEMP 36.7; O2SAT 96; BMI 29.3
--- NOTE | 2023-10-28 18:04 | ED_ITS ---
HPI - General Adult General Time Seen by Provider: 18:04 Date Seen: 10/28/23 Chief complaint: Skin/Abscess/Foreign Body Stated complaint: Hand/arm infection possibly Time Seen by Provider: 10/28/23 18:04 Source: patient and RN notes reviewed Mode of arrival: ambulatory Limitations: no limitations History of Present Illness HPI narrative: Patient is a 58-year-old female with complicated past medical history including chronic pain syndrome, polypharmacy, bipolar disorder, left shoulder replacement, history of staph infection and recent carpal tunnel and trigger fi nger surgeries who comes to the emergency room with worries about an infection. Patient notes that she had surgery for carpal tunnel and a trigger finger release with Dr. Simmons on October 19. She states that today she noticed that the middle stitch on her hand had come out and that there was some green pus coming from that area. Since that she has noted radiation of the discomfort into her left arm and she is worried that she now has an infection going into her shoulder. She has not had fever or chills. She does state that she has pain that is much worse than normal throughout her entire body. She has not had any vomiting. No known history of MRSA. Multiple allergies to antibiotics. Related Data Home Medications Medication Instructions Recorded Confirmed cholecalciferol (vitamin D3) 125 5,000 unit PO DAILY 06/07/22 10/19/23 mcg (5,000 unit) tablet cyanocobalamin (vitamin B-12) 5,000 mcg PO DAILY 06/07/22 10/19/23 2,500 mcg tablet polyethylene glycol 3350 17 17 g PO QDAY PRN 11/08/22 10/19/23 gram/dose oral powder oxycodone 10 mg tablet 10 mg PO QID PRN 03/08/23 10/19/23 cyclosporine 0.05 % eye drops in a drp ophthalmic (eye) 10/11/23 10/11/23 dropperette (Restasis) buspirone 15 mg tablet 7.5 mg PO BID PRN 10/13/23 10/19/23 Previous Rx's Medication Instructions Recorded aspirin 81 mg tablet,delayed 81 mg PO QDAY #90 tabs 07/23/22 release diclofenac sodium 1 % topical gel 2 g topical QID #100 grams 08/23/22 triamcinolone acetonide 0.1 % 1 applic topical BID #453.6 grams 08/23/22 topical cream hydrocortisone 1 % topical cream 1 applic topical BID-QID PRN 09/16/22 (Anti-Itch (hydrocortisone)) itching #28.35 grams benzonatate 100 mg capsule 100 mg PO TID PRN cough #30 caps 12/27/22 budesonide-formoterol HFA 160 2 puff inhalation BID #10.2 grams 12/27/22 mcg-4.5 mcg/actuation aerosol inhaler (Symbicort) magnesium oxide 400 mg (241.3 mg 400 mg PO QDAY #90 tabs 12/27/22 magnesium) tablet meclizine 25 mg tablet (Dramamine 25 mg PO Q8H PRN dizziness #30 tabs 01/19/23 (meclizine)) sumatriptan 5 mg/actuation nasal 5 mg intranasal ONCE PRN migraine 02/11/23 spray headache #6 ea tizanidine 4 mg tablet 4 mg PO Q8H PRN muscle spasticity 02/28/23 #30 tabs bupropion HCl 300 mg 24 hr tablet, 300 mg PO QAM #90 tabs 04/04/23 extended release ondansetron HCl 4 mg tablet 4 mg PO Q6H PRN nausea and 04/05/23 vomiting #30 tabs Magic Mouthwash 5 - 10 ml PO QID PRN #120 mL 05/13/23 (Lidocaine/Benadryl/Maalox) 120 mL suspension fluoxetine 40 mg capsule (Prozac) 40 mg PO QAM #90 caps 05/30/23 valacyclovir 500 mg tablet 500 mg PO DAILY cold sores #90 tabs 05/30/23 cetirizine 10 mg tablet (Zyrtec) 10 mg PO QDAY #90 tabs 06/30/23 lamotrigine 200 mg tablet 200 mg PO BID #60 tabs 06/30/23 albuterol sulfate 90 mcg/actuation 2 puff inhalation Q6H PRN 07/06/23 aerosol inhaler (Ventolin HFA) shortness of breath or wheezing #8.5 grams rizatriptan 10 mg tablet 10 mg PO ONCE PRN migraine 07/06/23 headache #18 tabs furosemide 40 mg tablet (Lasix) 40 mg PO QAM #30 tabs 07/28/23 quetiapine 100 mg tablet 200 mg (2 x 100 mg) PO QHS sleep 07/29/23 #180 tabs ropinirole 1 mg tablet 1 mg PO BID #180 tabs 07/29/23 omeprazole 40 mg capsule,delayed 40 mg PO QDAY #30 caps 08/26/23 release acetaminophen 650 mg 1,300 mg (2 x 650 mg) PO .Every 8 09/03/23 tablet,extended release Hours #180 tabs hydroxyzine HCl 25 mg tablet 25 mg PO QID #20 tabs 09/17/23 atorvastatin 40 mg tablet 40 mg PO DAILY #90 tabs 09/28/23 pregabalin 300 mg capsule 300 mg PO BID #60 caps 09/28/23 doxycycline hyclate 100 mg capsule 100 mg PO BID #14 caps 10/28/23 Allergies Allergy/AdvReac Type Severity Reaction Status Date / Time acyclovir Allergy Mild rash Verified 10/13/23 10:05 shingles like benzoin Allergy Mild rash, Verified 10/13/23 10:05 blisters, itching Cephalosporins Allergy Mild Rash Verified 10/13/23 10:05 penicillin V Allergy Mild Rash Verified 10/13/23 10:05 adhesive Allergy Unknown contact Verified 10/13/23 10:05 dermatitis to tape amoxicillin Allergy Unknown Rash Verified 10/13/23 10:05 baclofen Allergy Unknown Rash Verified 10/13/23 10:05 cefaclor Allergy Unknown Rash Verified 10/13/23 10:05 chlorhexidine Allergy Unknown contact Verified 10/13/23 10:05 dermatitis fentanyl Allergy Unknown Hallucinati Verified 10/13/23 10:05 ng gabapentin Allergy Unknown muscular Verified 10/13/23 10:05 twitch, slurred speech nortriptyline Allergy Unknown Palpitation Verified 10/13/23 10:05 s NSAIDS (Non-Steroidal Allergy Unknown gastric Verified 10/13/23 10:05 Anti-Inflamma bypass silver Allergy Unknown contact Verified 10/13/23 10:05 dermatitis Milk solids Allergy Intermediate Vomiting Uncoded 10/13/23 10:05 RACHEL Allergy Mild rash Uncoded 10/13/23 10:05 needing early removal Pollen Allergy Unknown runny nose Uncoded 10/13/23 10:05 Soy Allergy Allergy Unknown Uncoded 10/13/23 10:05 Sulfamethoxazole / Allergy Unknown nausea, GI Uncoded 10/13/23 10:05 trimethoprim upset dermbond AdvReac Unknown contact Uncoded 10/13/23 10:05 dermatitis Review of Systems Status of ROS: Reports: 10 or more systems reviewed and unremarkable except as noted in History and below [facility] History 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) ?I69.398 - Other sequelae of cerebral infarction (ICD-10) ?H54.7 - Unspecified visual loss (ICD-10) GERD (gastroesophageal reflux disease) ?K21.9 - Gastro-esophageal reflux disease without esophagitis (ICD-10) History of skin cancer ?Z85.828 - Personal history of other malignant neoplasm of skin (ICD-10) ELLEN (generalized anxiety disorder) ?F41.1 - Generalized anxiety disorder (ICD-10) Migraine ?G43.909 - Migraine, unspecified, not intractable, without status migrainosus (ICD-10) Polypharmacy ?Z79.899 - Other predatory animal exterminator (current) drug therapy (ICD-10) Herpes labialis ?B00.1 - Herpesviral vesicular dermatitis (ICD-10) Restless legs syndrome ?G25.81 - Restless legs syndrome (ICD-10) Pyogenic arthritis of left shoulder region (03/25/21) ?M00.9 - Pyogenic arthritis, unspecified (ICD-10) Posttraumatic stress disorder ?F43.10 - Post-traumatic stress disorder, unspecified (ICD-10) Nicotine dependence ?F17.200 - Nicotine dependence, unspecified, uncomplicated (ICD-10) History of cerebrovascular accident ?Z86.73 - Personal history of transient ischemic attack (TIA), and cerebral infarction without residual deficits (ICD-10) Fibromyalgia ?M79.7 - Fibromyalgia (ICD-10) Cyclothymic disorder ?F34.0 - Cyclothymic disorder (ICD-10) Continuous opioid dependence (08/27/16) ?F11.20 - Opioid dependence, uncomplicated (ICD-10) Chronic obstructive pulmonary disease ?J44.9 - Chronic obstructive pulmonary disease, unspecified (ICD-10) Chronic neck pain ?M54.2 - Cervicalgia (ICD-10) ?G89.29 - Other chronic pain (ICD-10) Chronic back pain ?M54.9 - Dorsalgia, unspecified (ICD-10) ?G89.29 - Other chronic pain (ICD-10) Cerebral arteriosclerosis with history of previous cerebrovascular accident ?I67.2 - Cerebral atherosclerosis (ICD-10) ?Z86.73 - Personal history of transient ischemic attack (TIA), and cerebral infarction without residual deficits (ICD-10) Bipolar II disorder ?F31.81 - Bipolar II disorder (ICD-10) Ataxia due to cerebrovascular disease ?I67.9 - Cerebrovascular disease, unspecified (ICD-10) ?R27.0 - Ataxia, unspecified (ICD-10) Allergic rhinitis ?J30.9 - Allergic rhinitis, unspecified (ICD-10) Surgical History Status post trigger finger release (08/13/23) ?Z98.890 - Other specified postprocedural states (ICD-10) History of carpal tunnel surgery of right wrist (07/2023) ?Z98.890 - Other specified postprocedural states (ICD-10) Status post insertion of spinal cord stimulator ?Z96.89 - Presence of other specified functional implants (ICD-10) History of tubal ligation ?Z98.51 - Tubal ligation status (ICD-10) History of total hysterectomy with bilateral salpingo-oophorectomy (BSO) ?Z90.710 - Acquired absence of both cervix and uterus (ICD-10) ?Z90.722 - Acquired absence of ovaries, bilateral (ICD-10) ?Z90.79 - Acquired absence of other genital organ(s) (ICD-10) History of spinal surgery ?Z98.890 - Other specified postprocedural states (ICD-10) History of sinus surgery ?Z98.890 - Other specified postprocedural states (ICD-10) History of nevus excision ?Z98.890 - Other specified postprocedural states (ICD-10) ?Z87.2 - Personal history of diseases of the skin and subcutaneous tissue (ICD-10) History of neck surgery ?Z98.890 - Other specified postprocedural states (ICD-10) History of mastopexy ?Z98.890 - Other specified postprocedural states (ICD-10) History of left shoulder replacement ?Z96.612 - Presence of left artificial shoulder joint (ICD-10) History of gastric bypass (1999) ?Z98.84 - Bariatric surgery status (ICD-10) History of foot surgery ?Z98.890 - Other specified postprocedural states (ICD-10) History of cholecystectomy ?Z90.49 - Acquired absence of other specified parts of digestive tract (ICD- 10) History of carpal tunnel release of both wrists (2017) ?Z98.890 - Other specified postprocedural states (ICD-10) History of bilateral cataract extraction ?Z98.41 - Cataract extraction status, right eye (ICD-10) ?Z98.42 - Cataract extraction status, left eye (ICD-10) History of arthroplasty of both knees ?Z96.653 - Presence of artificial knee joint, bilateral (ICD-10) History of abdominoplasty ?Z98.890 - Other specified postprocedural states (ICD-10) Family History Family/Other Breast cancer Lung cancer Father Cancer Coronary artery disease Sister Congenital heart defect Mother Pancreatic cancer, Onset Age: 60 Social History Narrative: medical marijuana use chronic narcotic use tobacco use What is your current living situation?: I presently have a place to live Problems where you live: pests, such as bugs, ants, or mice, mold, carbon monoxide detectors missing or not working and other Problems where you live details: Heating issues In the past 12 months, utilities in danger of being shut off: yes In past 12 months, lack of transportation kept you from medical appts, meetings, work, or getting things needed for daily living: yes In the past 12 mos, have been you worried that your food would run out before you had money to buy more?: often true In the past 12 mos, the food you bought just didn't last and you didn't have money to buy more?: often true Smoking Status: Current every day smoker What tobacco products do you use: cigarettes Smoking quit date/years: <= 15 years ago Do you use any of these nicotine containing products: E-Cigarettes and Vaping Products Second hand tobacco smoke exposure: No How often do you have a drink containing alcohol: never How often do you have six or more drinks on one occasion: Never AUDIT-C Alcohol total score: 0 Non-prescribed substance use: marijuana (any form) Caffeine: Yes How often does anyone, including family, friends and others, physically hurt you : never How often does anyone, including family, friends and others, insult or talk down to you: fairly often How often does anyone, including family, friends and others, threaten you with harm: fairly often How often does anyone, including family, friends and others, scream or curse at you: frequently Little interest or pleasure in doing things: more than half the days Feeling down, depressed, or hopeless: several days Are you using contraception or practicing any form of control: No service: No Exam Narrative: Exam Narrative: Patient is alert and oriented. I have met Olive before when she was known as Angie Demetri. Alert and oriented nontoxic in appearance. Speech is normal. Heart with regular rate and rhythm and lungs are clear. Examination of the left hand shows sutures at the wrist flexor that appear to be intact without drainage. On her hand she has sutures volar palm. She has some slight serous possibly purulent drainage that is dried in the mid aspect. There is no surrounding erythema here. No warmth to the touch. Examination of her left arm shows no erythema and she appears to be moving her shoulder without difficulty. Const: Vital Signs, click to edit/add: Vital Signs - 24 hr 10/28/23 15:36 Temperature 98.0 F Pulse Rate [Pulse Oximeter] 87 Respiratory Rate 16 Blood Pressure [Ri ght Upper Arm] 115/66 Pulse Oximetry 96 Oxygen Delivery Me thod Room Air Documenting provider has reviewed patient's vital signs: yes Course Course ED Course: At this time would recommend wound culture. Patient did express some slight fluid from the mid aspect of the wound but certainly there is no underlying fluctuance. Culture was accomplished. Also do blood cultures as well as a CBC and basic. Reevaluation(s) Reevaluation #1: Patient has elected to leave AMA. Vital Signs Vital signs: Initial Vital Signs Temperature 98.0 F 10/28/23 15:36 Temperature Source Temporal Artery Scan 10/28/23 15:36 Pulse Rate 87 10/28/23 15:36 Pulse Rhythm Regular 10/28/23 15:36 Respiratory Rate 16 10/28/23 15:36 Blood Pressure 115/66 10/28/23 15:36 Blood Pressure Mean 82 10/28/23 15:36 Blood Pressure Position Sitting 10/28/23 15:36 Pulse Oximetry 96 10/28/23 15:36 Oxygen Delivery Method Room Air 10/28/23 15:36 Vital Signs Temperature 98.0 F 10/28/23 15:36 Pulse Rate 87 10/28/23 15:36 Respiratory Rate 16 10/28/23 15:36 Blood Pressure 115/66 10/28/23 15:36 Pulse Oximetry 96 10/28/23 15:36 Oxygen Delivery Method Room Air 10/28/23 15:36 Temperature 98.0 F 10/28/23 15:36 Pulse Rate 87 10/28/23 15:36 Respiratory Rate 16 10/28/23 15:36 Blood Pressure 115/66 10/28/23 15:36 Pulse Oximetry 96 10/28/23 15:36 Oxygen Delivery Method Room Air 10/28/23 15:36 Medications Administered Medications: Discontinued Medications Generic Name Dose Route Start Last Admin Trade Name Freq PRN Reason Stop Dose Admin Ondansetron HCl 4 mg 10/28/23 18:14 10/28/23 18:20 Ondansetron Odt 4 Mg Tab PO 10/28/23 18:15 4 mg ONCE ONE Administration Medical Decision Making MDM Narrative Medical decision making narrative: 1. Early surgical wound infection-cultures were accomplished. Patient is describing green pus being expressed from this wound. I do not see any surrounding cellulitis. Further white count is normal and patient is afebrile at this time. Blood cultures were also done given patient's self described history of staph infection. I had the pleasure of speaking to Marlene our orphuong CISNEROS. At this time we will place Olive on doxycycline pending of cultures. Further Marlene has available appointments on Tuesday and will be contacting Olive for follow-up. 2. Disposition-patient did leave AMA but I was able to talk to her at home after she left with instructions as above. Doxycycline 100 mg p.o. b.i.d. x7 days. Medical Records Medical records reviewed: Yes I reviewed the patient's medical records Lab Data Lab results reviewed: Yes I reviewed the patient's lab results Labs: Lab Results 10/28/23 10/28/23 Range/Units 18:14 18:29 WBC 5.64 (4.50-11.00) K/uL RBC 4.07 (4.00-5.20) m/uL Hgb 11.1 L (12.0-16.0) gm/dL Hct 34.8 (33.0-51.0) % MCV 86 (80-100) fL MCH 27 (26-34) pg MCHC 32 (32-36) gm/dL RDW Coeff of Joe 16.2 H (11.5-15.5) % Plt Count 308 (140-440) K/uL Neut % (Auto) 61.4 (42.0-72.0) % Lymph % (Auto) 30.9 (20-44) % Dooly % (Auto) 6.2 (0.0-11.0) % Eos % (Auto) 0.9 (0.0-7.0) % Baso % (Auto) 0.4 (0.0-3.0) % Neut # (Auto) 3.47 (1.7-7.0) K/uL Lymph # (Auto) 1.74 (0.90-2.90) K/uL Dooly # (Auto) 0.30 (0.00-0.90) K/UL Eos # (Auto) 0.05 (0.00-0.50) K/uL Baso # (Auto) 0.02 (0.00-0.30) K/uL Abs Immat Gran (auto) 0.01 (0.00-0.30) K/uL Imm/Tot Granulo (auto) 0.2 % Sodium 139 (135-149) mmol/L Potassium 4.3 (3.6-5.1) mmol/L Chloride 108 (96-114) mmol/L Carbon Dioxide 24 (20-32) mmol/L Anion Gap 7 (7-15) mEq/L BUN 14 (7-30) mg/dL Creatinine 0.7 (0.5-1.5) mg/dL Estimated Creat Clear 88.74 Estimated GFR 99 ml/min Glucose 102 (60-115) mg/dL Calcium 9.1 (8.4-10.6) mg/dL Discharge Plan Discharge Clinical Impression: Left against medical advice, Infected surgical wound Patient Disposition: Left Against Medical Advice Condition: Unchanged Prescriptions: New doxycycline hyclate 100 mg capsule 100 mg PO BID Qty: 14 0RF No Action cholecalciferol (vitamin D3) 125 mcg (5,000 unit) tablet 5,000 unit PO DAILY cyanocobalamin (vitamin B-12) 2,500 mcg tablet 5,000 mcg PO DAILY hydrocortisone [Anti-Itch (HC)] 1 % cream 1 applic topical BID-QID PRN (Reason: itching) Qty: 28.35 0RF oxycodone 10 mg tablet 10 mg PO QID PRN bupropion HCl 300 mg tablet extended release 24 hr 300 mg PO QAM Qty: 90 3RF triamcinolone acetonide 0.1 % cream 1 applic topical BID Qty: 453.6 0RF diclofenac sodium 1 % gel 2 g topical QID Qty: 100 2RF Hold Instructions: pt holding polyethylene glycol 3350 17 gram/dose powder 17 g PO QDAY PRN benzonatate 100 mg capsule 100 mg PO TID PRN (Reason: cough) Qty: 30 1RF magnesium oxide 400 mg (241.3 mg magnesium) tablet 400 mg PO QDAY Qty: 90 3RF budesonide-formoterol [Symbicort] 160-4.5 mcg/actuation HFA aerosol inhaler 2 puff inhalation BID Qty: 10.2 5RF ropinirole 1 mg tablet 1 mg PO BID Qty: 180 3RF Rx Instructions: 1 Qpm and 1 QHS quetiapine 100 mg tablet 200 mg PO QHS Qty: 180 1RF cyclosporine [Restasis] 0.05 % dropperette ophthalmic (eye) Patient Comments: [NO ORIGINAL SIG] buspirone 15 mg tablet 7.5 mg PO BID PRN Magic Mouthwash (Lidocaine/Benadryl/Maalox) 120 mL suspension 5 - 10 ml PO QID PRNQty: 120 0RF Rx Instructions: Lidocaine Viscous 2 % mucosal solution 40 mL; Maalox 200 mg-200 mg-20 mg/5 mL oral suspension 40 mL; Benadryl 12.5 mg/5 mL oral elixir 40 mL; Per 120 mL SWISH AND SPIT. MAY COMPOUND IF FIRST PRODUCT IS NOT AVAILABLE. hydroxyzine HCl 25 mg tablet 25 mg PO QID Qty: 20 0RF aspirin 81 mg tablet,delayed release (DR/EC) 81 mg PO QDAY Qty: 90 3RF meclizine [Dramamine (meclizine)] 25 mg tablet 25 mg PO Q8H PRN (Reason: dizziness) Qty: 30 1RF sumatriptan 5 mg/actuation spray,non-aerosol 5 mg intranasal ONCE PRN (Reason: migraine headache) Qty: 6 5RF Rx Instructions: 1-2 SPRAYS IN ONE NOSTRIL AT ONSET OF HEADACHE, MAY REPEAT Q2H PRN, MAX 4 SPRAYS/24 HRS tizanidine 4 mg tablet 4 mg PO Q8H PRN (Reason: muscle spasticity) Qty: 30 1RF ondansetron HCl 4 mg tablet 4 mg PO Q6H PRN (Reason: nausea and vomiting) Qty: 30 2RF fluoxetine [Prozac] 40 mg capsule 40 mg PO QAM Qty: 90 3RF valacyclovir 500 mg tablet 500 mg PO DAILY Qty: 90 3RF lamotrigine 200 mg tablet 200 mg PO BID Qty: 60 12RF cetirizine [Zyrtec] 10 mg tablet 10 mg PO QDAY Qty: 90 3RF albuterol sulfate [Ventolin HFA] 90 mcg/actuation HFA aerosol inhaler 2 puff inhalation Q6H PRN (Reason: shortness of breath or wheezing) Qty: 8.5 2RF rizatriptan 10 mg tablet 10 mg PO ONCE PRN (Reason: migraine headache) Qty: 18 2RF Rx Instructions: TAKE ONE TAB AT ONSET OF HEADACHE, MAY REPEAT Q2H PRN, MAX 30 MG/24 HRS, must last a month furosemide [Lasix] 40 mg tablet 40 mg PO QAM Qty: 30 1RF omeprazole 40 mg capsule,delayed release(DR/EC) 40 mg PO QDAY Qty: 30 5RF acetaminophen 650 mg tablet extended release 1,300 mg PO .Every 8 Hours Qty: 180 12RF atorvastatin 40 mg tablet 40 mg PO DAILY Qty: 90 1RF pregabalin 300 mg capsule 300 mg PO BID Qty: 60 2RF Follow Up/Referrals: Clemente Blackwell MD [Primary Care Provider] - Stand [facility]one [facility] Inst[facility]
[2023-10-28] MEDS: ONDANSETRON ODT 4 MG TAB PO (18:20)
--- OUTSIDE RECORDS SUMMARY | 2023-10-28 18:44 | XMS_ITS | Continuity of Care Document ---
Author Name Unknown Organization [facility] Address [address] [place] [address] Phone Care Team Providers Care Food Mixer Assembler Name Role Phone ZProvider, Conversion Unavailable Unavailabl [...] Diagnoses Date Provider Providers Copied on Encounter [facility], [address], [place], [place], [id number], [place] tel:[phone] [facility] No Information 4 ZProvider Conversion . . [facility], [address], [place], [place], [id number], [place] tel:[phone] [facility] OBESITY NOSTOBACCO USE DISORDEROSTEOPOROSI S NOS 4 Michele Nara. [address], [address], [place], [place], [id number], [place]. tel:[phone] [facility], [address], [place], [place], [id number], [place] tel:[phone] [facility] Age-related osteoporosis w/o current pathological fracture 4 ZProvider Conversion . . [facility], [address], [place], [place], [id number], [place] tel:[phone] [facility] MALAISE AND FATIGUE NECOBESITY NOSOSTEOPOROSIS NOSTOBACCO USE DISORDER 4 ZProvider Conversion . . [facility], [address], [place], [place], [id number], [place] tel:[phone] [facility] [place] Tobacco useObesity, unspecifiedAge-rela mary osteoporosis w/o current pathological fracture 4 Michele Nara. [address], [address], [place], [place], [id number], [place]. tel:[phone] Family History Family Member Type Diagnosis Age At Onset Problem (finding) Mother Problem (finding) The patient re ports no changes except otherwise noted during the present visit Problem (finding) Father living Problem (finding) Osteoporosis Problem (finding) Number of Sisters Problem (finding) Number of Brothers Payers Payer name Insurance type Covered green party ID Authoriza tion(s) No Information Social [...]
--- OUTSIDE RECORDS SUMMARY | 2023-10-28 18:44 | XMS_ITS | Continuity of Care Document ---
Author Name Unknown Organization [facility] Address [address] [place] [address] Phone Care Team Providers Care Bilingual Spanish Inbound Sales Name Role Phone Su Dang OD Unavailable [...] Diagnoses Date Provider Providers Copied on Encounter [facility], [address] [place] [address], [id number], tel:[phone] [facility] No Information [facility]. [address], [place], [id number], . tel:[phone] Referring Provider: Su Dang, [address] [place], [address] . tel:[phone] [facility], [address], [place], [id number], tel:[phone] [facility] Blurred Vision (chief complaint) No Information No Information Family History Family Member Type Diagnosis Age At Onset No Information Payers Payer name Insurance type Covered libertarian ID Authoriza tion(s) No Information Social History [...]
--- OUTSIDE RECORDS SUMMARY | 2023-10-28 18:44 | XMS_ITS | Continuity of Care Document ---
Author Name Unknown Organization [facility] Address [address] [address] [place] [address] Phone Care Team Providers Care Legal Stenographer Name Role Phone Nilay Perry MD Unavailable Unavailable Advance Directives Directive Yes / No Effective Date File Name No Information Encounters Encounter Description Practice Location Reason(s) For Visit Diagnoses Date Provider Providers Copied on Encounter [facility], [address] [address], [place], [place], [id number], [place] tel:[phone] [facility] No Information Orlando Pemberton. [address] [facility] [facility] [address], [place], [place], [id number], [place]. tel:[phone] Referring Provider: Yury Marcial MD, [address] [facility] [address], [place], [address]. tel:[phone] Family History Family Member Type Diagnosis Age At Onset No Information Payers Payer name Insurance type Covered democrat ID Authoreaglea tijulio c(s) [place] [employer] [id number] Social History Type Description Quantity Date Captured [...]
--- OUTSIDE RECORDS SUMMARY | 2023-10-28 18:44 | XMS_ITS | Continuity of Care Document ---
Author Name Unknown Organization [facility] Address [address] [place] [address] Phone Care Team Providers Care Mortgage Loan Officer Originator Name Role Phone Kristie Prater PT Unavailable Unavaila ble Allergies, Adverse Reactions, Alerts Substance Reaction Status Criticality morphine rash, sweats, GI upset Active No In formation cefaclor rash Active No Information acyclovir rash Active No Information amoxicillin rash Active No Information Medications Medication Instructions Dosage Effective Dates (start - stop) Status Comments Lamictal 150 mg tablet take 1 tablet by oral route 2 times every day 150 MG - Active Lyrica 150 mg capsule take 1 capsule by oral route 3 times every day 150 MG - Active Vitamin D3 5,000 unit tablet take 1 tablet po daily - Active fentanyl 12 mcg/hr transdermal patch apply 2 patch by transdermal route every 72 hours 24 MCG/H - Active Percocet 10 mg-325 mg tablet take 1 tablet by oral route every 6 hours as needed 1 tablet - Active OxyContin 20 mg tablet,crush resistant,extended release take 1 tablet by oral route every 12 hours 20 MG - Active NEXIUM (unknown strength) take 1 capsule by oral route BID every day at least 1 hour before a meal swallowing whole. Do not crush or chew granules. Not Available - Active Procedures Procedure Date New Pt Eval 45 Min Advance Directives Directive Yes / No Effective Date File Name No Information Encounters Encounter Description Practice Location Reason(s) For Visit Diagnoses Date Provider Providers Copied on Encounter [facility], [address], [place], [place], [id number], [place] tel:[phone] [facility] No Information 6 Josi Flowers. [address], [place], [place], [address], [place]. tel:[phone] New Pt Eval 45 [facility], [address], [place], [place], [address], [place] tel:[phone] [facility] Spondylolisthesis , lumbar regionRadiculopat hy, lumbar regionSpinal stenosis, Lumbar regionOther intervertebral disc degeneration, lumbar regionOther intervertebral disc displacement, lumbar regionOther spondylosis with radiculopathy, lumbar regionLong term (current) use of opiate analgesicPostlami nectomy syndrome, not elsewhere classifiedSpondyl osis without myelopathy or radiculopathy, cervical region 6 No Information Family History Family Member Type Diagnosis Age At Onset Sister Problem (finding) Heart disease Mother Problem (finding) Cancer Father Problem (finding) hypertension Mother Problem (finding) Bleeding disorder Payers Payer name Insurance type Covered democrat ID Authoriza tion(s) Medicare Part B [id number] [employer] Medicaid HMO MC [id number] Social History Type Description Quantity Date Captured [...]
--- OUTSIDE RECORDS SUMMARY | 2023-10-28 18:45 | XMS_ITS | Continuity of Care Document ---
Author Name Unknown Organization [facility] Address [address] [address] [place] [address] Phone Care Team Providers Care Training Manager Name Role Phone Nilay Perry MD Unavailable Unavailable Advance Directives Directive Yes / No Effective Date File Name No Information Encounters Encounter Description Practice Location Reason(s) For Visit Diagnoses Date Provider Providers Copied on Encounter [facility], [address] [address], [place], [place], [id number], [place] tel:[phone] [facility] No Information Orlando Pemberton. [address], [place], [place], [id number], [place]. tel:[phone] Referring Provider: Yury Marcial MD, [address], [place], [address]. tel:[phone] Family History Family Member Type Diagnosis Age At Onset No Information Payers Payer name Insurance type Covered libertarian ID Authoreaglea tijulio c(s) [place] Medical Assistance [id number] Social History Type Description Quantity Date Captured [...]
--- OUTSIDE RECORDS SUMMARY | 2023-10-28 18:45 | XMS_ITS | Continuity of Care Document ---
Author Name Unknown Organization [facility] Address [address] [place] [address] Phone Care Team Providers Care C Python Developer Name Role Phone ZProvider, Conversion Unavailable Unavailabl [...] Diagnoses Date Provider Providers Copied on Encounter [facility], [address], [place], [place], [address], [place] tel:[phone] [facility] No Information 4 ZProvider Conversion . . [facility], [address], [place], [place], [address], [place] tel:[phone] [facility] OBESITY NOSTOBACCO USE DISORDEROSTEOPOROSI S NOS 4 Michele Nara. [address], [address], [place], [place], [address], [place]. tel:[phone] [facility], [address], [place], [place], [address], [place] tel:[phone] [facility] Age-related osteoporosis w/o current pathological fracture 4 ZProvider Conversion . . [facility], [address], [place], [place], [address], [place] tel:[phone] [facility] MALAISE AND FATIGUE NECOBESITY NOSOSTEOPOROSIS NOSTOBACCO USE DISORDER 4 ZProvider Conversion . . [facility], [address], [place], [place], [address], [place] tel:[phone] [facility] [place] Tobacco useObesity, unspecifiedAge-rela mary osteoporosis w/o current pathological fracture 4 Michele Nara. [address], [address], [place], [place], [address], [place]. tel:[phone] Family History Family Member Type Diagnosis Age [...]
--- OUTSIDE RECORDS SUMMARY | 2023-10-28 18:45 | XMS_ITS | Continuity of Care Document ---
Author Name Unknown Organization [facility] Address [address] [place] [address] Phone Care Team Providers Care Senior Clinical Research Scientist Name Role Phone Ezequiel Christensen MD Unavailable [...] on Encounter [facility], [address], [facility] [place], [address], [place] tel:[phone] [facility] [place] No Information [facility], [address] [place] [address], [address], [place], [place], [address] , [place]. [phone] Office/Outpat ient Visit,Est, Mod [facility], [address], [facility] [place], [place], [address], [place] tel:[phone] [facility] Spinal stenosis, lumbar region [facility], [address] [place] [address], [address], [place], [place], [address] , [place]. [phone] Referring Provider: Amna Fletcher, [address], [address]. tel:[phone] Office/Outpat ient Visit,New, [facility], [address], [place], [place], [address], [place] tel:[phone] [facility] Spinal stenosis, lumbar regionLow back painCervicalgia 7 [facility], [address] [place] [address], [address], [place], [place], [address] , [place]. tel:[phone] Referring Provider: Amna Fletcher [address], [address]. tel:[phone] Family History Family Member Type Diagnosis Age At Onset No Information Payers Payer name Insurance type Covered alliance party ID Chester aguillon(s) Medicare MB [id number] Social History Type Description Quantity Date Captured [...]
--- OUTSIDE RECORDS SUMMARY | 2023-10-28 18:45 | XMS_ITS | Continuity of Care Document ---
Author Name Unknown Organization [facility] Address [address] [place] [address] Phone Care Team Providers Care Food Preparation Supervisor Name Role Phone Su Dang OD Unavailable [...] Diagnoses Date Provider Providers Copied on Encounter [facility] [place] [facility], [address] [place] [address], [id number], tel:[phone] [facility] No Information Alton Blue. [address], [place], [address], . tel:[phone] Referring Provider: Su Dang, [address] [place], [address] . tel:[phone] [facility] [place] [facility], [address], [place], [address], tel:[phone] [facility] (chief complaint) No Information No [...]
--- OUTSIDE RECORDS SUMMARY | 2023-10-28 18:45 | XMS_ITS | Continuity of Care Document ---
Author Name Unknown Organization [facility] Address [address] [place] [address] Phone Care Team Providers Care Instrument Fitter Name Role Phone Ezequiel Christensen MD Unavailable [...] PROZAC (unknown strength) Not Available - Active Proventil HFA 90 mcg/actuation aerosol inhaler - Active TESSALON PERLE (unknown strength) Not Available - Active VITAMIN D3 (unknown strength) Not Available - Active COMBIVENT RESPIMAT (unknown strength) Not Available - Active IRON (unknown strength) Not Available - Ac tive Flonase Allergy Relief 50 mcg/actuation nasal spray,suspension - Active LASIX (unknown strength) Not Available - Active CHILD MUCINEX CHEST MINI-MELTS (unknown strength) Not Available - Active LAMICTAL (unknown strength) Not Available - Active NEXIUM (unknown strength) Not Available - Active LIDOCARE (unknown strength) Not Available - Active METHOCARBAMOL (unknown strength) Not Available - Active ZOFRAN ODT (unknown strength) Not Available - Active OXYCODONE HCL (unknown strength) Not Available - Active Miralax 17 gram/dose oral powder - Active SENOKOT-S (unknown strength) Not Available - Active INDERAL LA (unknown strength) Not Available - Active SPIRIVA RESPIMAT (unknown strength) Not Available - Active SYMBICORT (unknown strength) Not Available - Active VALTREX (unknown strength) Not Available - Active ZONEGRAN (unknown strength) Not Available - Active Procedures Procedure Date Office/Outpatient Visit,Est, Mod 2016 Office/Outpatient Visit,New, Mod 2016 Advance Directives Directive Yes / No Effective Date File Name No Information Encounters Encounter Description Practice Location Reason(s) For Visit Diagnoses Date Provider Providers Copied on Encounter [facility], [address], [place], [id number], [place] tel:[phone] [facility] [place] No Information [facility], [address] [place] [address], [address], [place], [place], [address] , [place]. [phone] Office/Outpat ient Visit,Est, Mod [facility], [address], [facility] [place], [place], [id number], [place] tel:[phone] [facility] Spinal stenosis, lumbar region [facility], [address] [place] [address], [address], [place], [place], [address] , [place]. [phone] Referring Provider: Amna Fletcher, [address], [address]. tel:[phone] Office/Outpat ient Visit,New, Mod [facility], [address], [facility] [place], [address], [place] tel:[phone] [facility] Spinal stenosis, lumbar regionLow back painCervicalgia 7 [facility], [address] [place] [address], [address], [place], [place], [address] , [place]. tel:[phone] Referring Provider: Amna Fletcher [address], [address]. tel:[phone] Family History Family Member Type Diagnosis Age At Onset No Information Payers Payer name Insurance type Covered democrat ID Chester aguillon(s) Medicare [place] [id number] Social History Type Description Quantity Date Captured [...]
--- OUTSIDE RECORDS SUMMARY | 2023-10-28 18:45 | XMS_ITS | Continuity of Care Document ---
Author Name Unknown Organization [facility] Address [address] [place] [address] Phone Care Team Providers Care Engineering Supervisor Name Role Phone Kristie Prater PT Unavailable [...] Providers Copied on Encounter [facility] Valles, [address], [place], [place], [address], [place] tel:[phone] [facility] No Information 6 Josi Flowers. [address], [place], [place], [address], [place]. tel:[phone] New Pt Eval 45 [facility], [address], [place], [place], [address], [place] tel:[phone] [facility] Spondylosis without myelopathy or radiculopathy, cervical regionPostlaminec ikna syndrome, not elsewhere classifiedLong term (current) use of opiate analgesicOther spondylosis with radiculopathy, lumbar regionOther intervertebral disc displacement, lumbar regionOther intervertebral disc degeneration, lumbar regionSpinal stenosis, Lumbar regionRadiculopat hy, lumbar regionSpondylolis thesis, lumbar region Jan- 6 No Information Family History Family Member Type Diagnosis Age At Onset Sister Problem (finding) Heart disease Mother Problem (finding) Cancer Father Problem (finding) hypertension Mother Problem (finding) Bleeding disorder Payers Payer name Insurance type Covered constitution party ID Authoriza tion(s) Medicare Part B [id number] [employer] Medicaid HMO MC [id number] Social History Type Description Quantity Date Captured [...]
--- NOTE | 2023-10-28 19:34 | ED.NURSE ---
Pt states she does not want to wait for results and would like to sign herself out. MD Casey notified. Pt provided with AMA document and signed this. Pt provided with recommendations to wait for results and follow up with primary care provider. Pt recommended to return if worsening. Pt unnderstands this and still wants to leave. Pt departs ambulatory from ER before repeat vitals or assessments completed.
[2023-10-28 19:35] LABS: Basophils Absolute Auto 0.02 K/uL (0.00-0.30); Basophils Percent Auto 0.4 % (0.0-3.0); Eosinophils Absolute Auto 0.05 K/uL (0.00-0.50); Eosinophils Percent Auto 0.9 % (0.0-7.0); Hematocrit 34.8 % (33.0-51.0); Hemoglobin* 11.1 gm/dL (12.0-16.0); Immature Granulocytes Abs Auto 0.01 K/uL (0.00-0.30); Immature Granulocytes Pct Auto 0.2 %; Lymphocytes Absolute Auto 1.74 K/uL (0.90-2.90); Lymphocytes Percent Auto 30.9 % (20-44); Mean Corpuscular HGB Conc 32 gm/dL (32-36); Mean Corpuscular Hemoglobin 27 pg (26-34); Mean Corpuscular Volume 86 fL (80-100); Monocytes Percent Auto 6.2 % (0.0-11.0); Neutrophils Absolute Auto 3.47 K/uL (1.7-7.0); Neutrophils Percent Auto 61.4 % (42.0-72.0); Platelet Count* 308 K/uL (140-440); RDW Coefficient of Variation % 16.2 % (11.5-15.5); Red Blood Count 4.07 m/uL (4.00-5.20); White Blood Count* 5.64 K/uL (4.50-11.00)
[2023-10-28 19:49] LABS: Chloride* 108 mmol/L (96-114); Potassium* 4.3 mmol/L (3.6-5.1); Sodium* 139 mmol/L (135-149)
[2023-10-28 19:52] LABS: Anion Gap 7 mEq/L (7-15); Carbon Dioxide* 24 mmol/L (20-32); Creatinine* 0.7 mg/dL (0.5-1.5); Est. Creatinine Clearance* 88.74; Estimated Glomerular Filt Rate 99 ml/min
[2023-10-28 19:53] LABS: Blood Urea Nitrogen* 14 mg/dL (7-30); Calcium* 9.1 mg/dL (8.4-10.6); Glucose* 102 mg/dL (60-115)
[2023-10-28 19:58] LABS: Slide Review Reflex No
== END 2023-10-28 19:38 | disposition left against medical advice (07) ==
LOC: ED 18:43
PROVIDERS: Emergency Provider Family Medicine; PCP Family Medicine
DX: T81.41XA Infection following a procedure, superficial incisional surgical site, initial encounter (principal)
CPT/HCPCS: 36415; 80048; 85025; 87040; 87070; 87186; 99283; 99284; A9270

== ENCOUNTER 2023-12-09 13:08 | Outpatient (CLI) | payer MEDICARE, OTHER, SELFPAY ==
--- OUTSIDE RECORDS SUMMARY | 2023-12-08 13:17 | XMS_ITS ---
Author Name Unknown Organization [facility] Address [address] [place] [address] Care Team Providers Care Warehouse Forklift Operator Name Role Phone Unavailable Unavailable Unavailable Surgery Details Not on file Complications Check Surgery Details section. Procedure Estimated Blood Loss Check Surgery Details section. Procedure Findings Check Surgery Details section. Procedure Specimens Taken Check Surgery Details section.
--- OUTSIDE RECORDS SUMMARY | 2023-12-08 13:17 | XMS_ITS | Encounter Summary ---
Author Name Unknown Organization [facility] Address [address] [place] [address] Care Team Providers Care Tufting Supervisor Name Role Phone Elsewhere, Pcp Primary Care Provider Unavailabl e Reason for Visit * Appointment Request (Routine) - Closed Specialty Diagnoses / Procedures Referred By Tanja baca Referred To Contact Orthopedic Surgery Diagnoses Pain Shoulder Left Elvira Todd, P.A. [address] [place] [address] Referral ID Status Reason Start Date Expiration Date Visits Re quested Visits Authorized [id number] Closed 11/02/2023 11/01/2024 1 1 Encounter Details Date Type Department Care Team ([facility] st Contact Info) Description 11/07/2023 11:00 AM CUT OFF MACHINE OPERATOR Office Visit Department of Orthopedic Surgery in [place], [place] [address] [place] [address] Cyrus Polk M.D. [address] [place] [phone] Pain Shoulder Left (Primary Dx) Social History Tobacco Use Types Packs/Day Years Used Date Smoking Tobacco: Every Day Cigarettes 0.3 30 Started: 11/28/1977 Smokeless Tobacco: Never Comments:Since teens, used t o be 2 ppd, now 1/2 ppd. Roughly 40 pack year estimate Alcohol Use Standard Drinks/Week Comments No 0 (1 standard drink = 0.6 oz pur e alcohol) Daily caffeine Humiliation, Afraid, Rape, and Kick questionnair e Answer Date Recorded Within the last year, have y ou been afraid of your partner or ex-partner? No 05/17/2022 Within the last year, have y ou been humiliated or emotionally abused in other ways by your partner or ex-partner? No Within the last year, have y ou been kicked, hit, slapped, or otherwise physically hurt by your partner or ex-partner? No 05/17/2022 Within the last year, have y ou been raped or forced to have any kind of sexual activity by your partner or ex-partner? No 05/17/2022 Social Connection and Isolat ion Panel [NHANES] Answer Date Recorded In a typical week, how many times do you talk on the phone with family, friends, or neighbors? More than three times a week 05/17/2022 How often do you get togethe r with friends or relatives? More than three times a week 05/17/2022 How often do you attend [facility] or baptism services? Patient declined 05/17/2022 Do you belong to any clubs o r organizations such as pentecostalism groups, unions, fraternal or athletic groups, or school groups? No 05/17/2022 How often do you attend meet ings of the clubs or organizations you belong to? Never 05/17/2022 Are you , , di vorced, , never , or living with a partner? 05/17/2022 AUDIT-C Answer Date Recorded Q1: How often do you have a drink containing alc ohol? Never 05/17/2022 Average Number of Drinks Not on file 022 Frequency of Binge Drinking Not on file 04/29 Overall Financial Resource Strain (CARDIA) Answe r Date Recorded How hard is it for you to pa y for the very basics like food, housing, medical care, and heating? Very hard 03/24/2021 PHQ-2 Answer Date Recorded PHQ-2 Score 3 02/11/2021 [facility] [place] of Occupat ional Health - Occupational Stress Questionnaire Answer Date Recorded Do you feel stress - tense, restless, nervous, or anxious, or unable to sleep at night because your mind is troubled all the time - these days? Very much 05/17/2022 Exercise Vital Sign Answer Date Recorde d On average, how many days pe r week do you engage in moderate to strenuous exercise (like a brisk walk)? 0 days 05/17/2022 On average, how many minutes do you engage in exercise at this level? 0 min 05/17/2022 Hunger Vital Sign Answer Date Recorded Within the past 12 months, y ou worried that your food would run out before you got the money to buy more. Sometimes true Within the past 12 months, t he food you bought just didn't last and you didn't have money to get more. Often true PRAPARE - Transportation Answer Date Re corded In the past 12 months, has l ack of transportation kept you from medical appointments or from getting medications? Yes 04/29 In the past 12 months, has l ack of transportation kept you from meetings, work, or from getting things needed for daily living? Yes 05/17/2022 Housing Stability Vital Sign Answer Kenny e Recorded In the last 12 months, was t here a time when you were not able to pay the mortgage or rent on time? Yes 05/17/2022 In the last 12 months, how many places have you lived? 1 05/17/2022 In the last 12 months, was t here a time when you did not have a steady place to sleep or slept in a long term (including now)? No 05/17/2022 Depression Answer Date Recor ded PHQ-9 Total Score (max 27) 16 02/11 Nutrition Answer Date Recorded Nutrition: EVOO Fat Source No 05/17 On average, how many serving s of fruits and vegetables do you eat per day (serving size is equal to 1 cup or approximately the size of a tennis ball)? 0-1 05/17/2022 Dental Answer Date Recorded Dental: Regular Dentist Yes 05/17/20 Employment Answer Date Recorded Employment status Permanently disabled Education Answer Date Recorded What is the highest level of school you have completed or the highest degree you have received? Associate degree: occupational, technical, or vocational program 03/24/2021 Sex and Gender Information Value Date Recorded Sex Assigned at Female 03/01/2019 10:12 AM CDT Gender Identity Female 03/01/2019 10:12 AM CDT Sexual Orientation Straight 03/01/2019 10 :12 AM CDT documented as of this encounter Progress Notes * Cyrus Polk M.D. - 11/07/2023 11:00 AM CST SUBJECTIVE HISTORY OF PRESENT ILLNESS She notes she was doing extremely well until around Thanksgi. She was getting out of a truck and hit the anterior aspect of her shoulder region. She noted prior to that time she was doing well. OBJECTIVE PHYSICAL EXAMINATION General: Female in no acute distress. Musculoskeletal: Her active elevation today is 100, passive 120, external rotation 20, internal rotation sacrum. Strength is 3+/5 in all directions. She has no acromial or scapular tenderness. However, she has very specific tenderness over the anterior aspect of her shoulder region near the proximal bicipital groove region, and that soft tissue tenderness with palpation reproduces her pain. DIAGNOSTICS Her radiographs demonstrate she does have some glenoid and humeral resorption present. She does appear to have some spot welding in her humerus. Therefore does not appear grossly loose. The same on her glenoid side. ASSESSMENT / PLAN #1 Female status post reverse to a soft tissue injury to her shoulder I did review the radiographic findings with her. At this point, it does appear, however, her pain is primarily soft tissue. She will wear a sling with a pillow for 6 weeks' time and then wean out of it. I did note if her pain is not improved, happy to see her back at any time. Cyrus Polk M.D. 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
--- OUTSIDE RECORDS SUMMARY | 2023-12-08 13:17 | XMS_ITS | Encounter Summary ---
Author Name Unknown Organization [facility] Address [address] [place] [address] Care Team Providers Care Examination Grader Name Role Phone Elsewhere, Pcp Primary Care Provider Unavailabl e Reason for Visit * Reason Onset Date Comments Triage 11/09/2023 Encounter Details Date Type Department Care Team ([facility] st Contact Info) Description 11/09/2023 Clinical Communication Division of Pain Medicine in [place], [place] [address] [place] [phone] Nikki Cook, NIKKY, C.N.P., M.S. [address] [place] [phone] Triage Social History Tobacco Use Types Packs/Day Years [...] week 05/17/2022 How often do you attend chur or orthodox services? Patient declined 05/17/2022 Do you belong to any clubs o r organizations such as restorationist groups, unions, fraternal [...] Answer Date Recorded PHQ-2 Score 3 02/11/2021 [facility] of Occupat ional Health - Occupational Stress [...] or slept in a detention (including now)? No 05/17/2022 Depression Answer Date [...] Noted Time PHQ-9 Depression Total Score: 16 021 12:00 AM CDT documented as of this encounter Care Teams Examination Grader Relationship Specialty Start Date End Date Elsewhere, Pcp PCP - General Family Medicine 12/25/21 documented as of this encounter
--- OUTSIDE RECORDS SUMMARY | 2023-12-08 13:17 | XMS_ITS | Clinical Summary ---
Author Name Unknown Organization [facility] Address [address] [place] [address] Care Team Providers Care Environmental Engineering Intern Name Role Phone Elsewhere, Pcp Primary Care Provider Unavailabl e Source Comments Patient records contain information from all sites at [facility]. For routine questions regarding patient records, call [phone] during business hours, M-F 8:00 AM - 5:00 PM Central Time. Record requests for emergency care only can be directed to [phone] at any time.[facility] Allergies Active Allergy Reactions Criticality Noted Date Comments Acyclovir Rash Low 07/18/2016 Blister formation Adhesive Other (see comments) Medium 07/26/2014 Adhesive they use to close during surgery. And Tegaderm Adhesive Tape-Silicones Other (see comments) 09/11/2014 Dermabond (and 3 other glues) and Tagaderm Amoxicillin Rash 02/08/2006 Severe rash - happened when patient was young Baclofen Rash 02/11/2021 Benzoin Other (see comments) 09/19/2006 Cefaclor Rash 07/31/2010 Cephalosporins Rash Low 10/13/2017 Chlorhexidine Dermatitis,Other (see comments) 10/13/2017 Other reaction(s): Contact Dermatitis Gabapentin Other (see comments) Low 05/12/2017 Dropped things Feels weird Milk Containing Products (Dairy) GI intolerance High 08/23/2022 Nortriptyline Palpitations Low 05/12/2017 And heart racing Nsaids (Non-Steroidal Anti-Inflammatory Drug) Other (see comments) 03/08/2016 Gastric bypass Gastric bypass Penicillin V Rash Low 10/31/2023 Pollen Extracts Other (see comments) 08/02/2010 Other Intolerances Line - Fentanyl causes hallucinations so not a true allergy.; Other reaction(s): Other (see comments), Runny Nose Other Intolerances Line - Fentanyl causes hallucinations so not a true allergy.; Silver Other (see comments) 07/18/2016 Blisteres Other reaction(s): Contact Dermatitis, Other (see comments) Soy Rash 07/31/2010 Patient states only slight allergy Sulfamethoxazole-Trime thoprim Nausea Only,GI intolerance Low 10/13/2017 Stomach upset Other reaction(s): Gastrointestinal, GI Upset GI upset GI upset Stomach upset Medications Medication Sig Dispensed Refills Start Date End Date Status cetirizine (ZyrTEC) 10 mg tablet Take 10 mg by mouth daily. 0 Active FLUoxetine (PROzac) 40 mg capsule Take 80 mg by mouth every morning. 0 Active lamoTRIgine (LaMICtal) 200 mg tablet Take 200 mg by mouth 2 (two) times a day. 3 02/08/2019 Active MAG-G 27 mg magnesium (500 mg) tablet Take 1 tablet by mouth at bedtime. 3 02/16/2019 Active polyethylene glycol (MIRALAX) 17 gram/dose oral powder Take 17 g by mouth as needed for constipation. 0 04/11/2017 Active valACYclovir (VALTREX) 500 mg tablet Take 500 mg by mouth daily. 0 02/22/2018 Active zonisamide (ZONEGRAN) 100 mg capsule Take 300 mg by mouth 2 (two) times a day. 8 02/22/2019 Active albuterol (PROVENTIL HFA,VENTOLIN HFA) 90 mcg/actuation inhaler Inhale 2 puffs every 6 (six) hours as needed for wheezing or shortness of breath. 0 Active benzonatate (TESSALON PERLES) 100 mg capsule Take 100 mg by mouth 3 (three) times a day as needed for cough. 6 03/19/2019 Active tiZANidine (ZANAFLEX) 4 mg tablet Take 4-8 mg by mouth every 8 (eight) hours as needed for muscle spasms. Muscle spasms 1 03/27/2019 Active ipratropium-albutero L (DUONEB) 0.5-2.5 mg/3 mL nebulizer solution Inhale 3 mL by nebulization 4 (four) times a day as needed for shortness of breath or wheezing. 0 01/16/2021 Active meclizine (ANTIVERT) 25 mg tablet Take 25 mg by mouth every 6 (six) hours as needed for dizziness. 0 01/19/2021 Active buPROPion XL (WELLBUTRIN XL) 150 mg 24 hr tablet Take 150 mg by mouth every morning. 0 02/04/2021 Active atorvastatin (LIPITOR) 80 mg tablet Take 1 tablet (80 mg total) by mouth at bedtime. 90 tablet 3 02/17/2021 Active Additional Information Patient taking differently:80 mg oralDaily, Reported on 06/21/2022 butalbital-acetamino phen-caff (ESGIC) 50-325-40 mg per tablet Take 1 tablet by mouth every 6 (six) hours as needed for migraine. 0 02/27/2021 Active medical cannabis oil inhalation Inhale as needed (pain). Vape THC: 5 mg dose - per pt 0 Active medical cannabis capsule Take 1-4 capsules by mouth 2 (two) times a day as needed (pain). THC component: 10 mg CBD component: 0 mg 0 Active medical cannabis oil oral Take 1 each by mouth as needed (pain). 1 spray as needed. 5 mg THC 0 Active clindamycin (CLEOCIN T) 1 % external solution Apply 1 application topically 2 (two) times a day. Apply to face. 0 02/22/2022 Active diclofenac sodium (VOLTAREN) 1 % gel Apply 2-4 g topically 4 (four) times a day as needed. 0 01/01/2022 Active Arnuity Ellipta 100 mcg/actuation diskus inhaler Inhale 1 puff daily. 0 01/28/2022 Active oxyCODONE (ROXICODONE) 10 mg IR tablet Take 10 mg by mouth every 4 (four) hours as needed for pain. Per patient uses 4-5 tablets per day usually 0 02/24/2022 Active rOPINIRole (REQUIP) 2 mg tablet Take 2 mg by mouth at bedtime. 0 01/28/2022 Active multivit-min/iron/fo lic/vdv197 (HAIR, SKIN AND NAILS ADVANCED ORAL) Take 1 tablet by mouth daily. 0 Active sennosides-docusate sodium (SENOKOT-S) 8.6-50 mg per tablet Take 1 tablet by mouth 2 (two) times a day. 0 02/26/2022 Active aspirin 325 mg tablet Take 1 tablet (325 mg total) by mouth every evening. 0 02/27/2022 Active naloxone (NARCAN) 4 mg/actuation nasal spray Administer 1 spray into one nostril as directed. SPRAY 0.1 MILLILITER BY INTRANASAL ROUTE IN 1 NOSTRIL MAY REPEAT DOSE EVERY 2-3 MINUTES NEEDED ALTERNATING NOSTRILS 0 03/26/2022 Active rizatriptan (MAXALT) 10 mg tablet Take 1 tablet by mouth as directed. May repeat every 2hrs as needed (Max 30mg/24hrs) 0 05/05/2022 Active furosemide (LASIX) 40 mg tablet Take 1 tablet (40 mg total) by mouth daily. 0 06/17/2022 Active esomeprazole (NexIUM) [address] capsule Take 1 capsule (40 mg total) by mouth every morning before breakfast. 30 capsule 1 06/17/2022 Active acetaminophen (TYLENOL 8 HR) 650 mg ER tablet Take 1,300 mg by mouth 3 (three) times a day. 0 Active cholecalciferol (VITAMIN D3) 125 mcg (5,000 Unit) capsule Take 5,000 Units by mouth daily. 0 06/07/2022 Active Banophen 25 mg capsule Take 25-50 mg by mouth every 4 (four) hours as needed. 0 06/08/2022 Active cyanocobalamin, vitamin B-12, 2,500 mcg tablet, sublingual Place 5,000 mcg under the tongue daily. 0 06/07/2022 Active pregabalin (LYRICA) 300 mg capsule Take 1 capsule (300 mg total) by mouth 2 (two) times a day. 60 capsule 0 06/24/2022 Active ondansetron ODT (ZOFRAN-ODT) 4 mg disintegrating tablet 4 mg as needed. 0 05/22/2022 Active SUMAtriptan (IMITREX) 5 mg/actuation nasal spray 1-2 sprays as needed. 0 04/24/2022 Active QUEtiapine (SEROquel) 50 mg tablet Take 50 mg by mouth at bedtime. 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 03/29/2019 Anxiety Generalized Disorder 03/29/2019 Chronic Pain Syndrome 03/29/2019 Fibromyalgia 03/29/2019 Gastric Bypass Status Post 03/29/2019 Esophageal Motility Disorder 03/29/2019 Sinusitis Recurrent 03/29/2019 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 Fusion Cervical Spine Status Post 03/29/2019 Nicotine Dependence Cigarettes 03/29/2019 Thrombosis Arterial 03/29/2019 Rhinosinusitis Chronic 03/01/2019 Overview: Added automatically from request for surgery [id number] Nicotine Dependence Unspecified 11/29/2017 Other Supervisor Whipped Topping Current Drug Therapy 12/30/2016 Opioid Moderate Or Severe Us e Disorder (Dependence) Uncomplicated 08/27/2016 Bipolar II Disorder 09/27/2007 Transient Ischemic Attack Encounters Date Type Department Care Team Description 11/09/2023 Clinical Communication Division of Pain Medicine in [address] [id number] Nikki Cook APRN, C.N.P., M.S. Triage 11/07/2023 11:00 AM BAND SPLICER Office Visit Department of Orthopedic Surgery in [address] [phone] Cyrus Polk M.D. Pain Shoulder Left (Primary Dx) 11/07/2023 9:59 AM BAND SPLICER - 11/07/2023 11:59 PM BAND SPLICER Hospital Encounter Department of Radiology, [facility], in [address] [phone] Kasie Pelaez P.A.-C., M.S. Painful Total Joint Arthroplasty Initial Discharge Disposition: Home or Self Care 11/02/2023 Clinical Communication Department of Orthopedic Surgery in [address] [address] Cyrus Polk M.D. Appointment from Last 3 Months Immunizations Name Administration Dates Next Due Influenza, Unspecified 08/28/2006 Family History Relation Name Status Comments Father Endorses histor y of blood clots in legs in father and on multiple people on father's side, mostly female and unknown cause Mother of pancrea tic cancer Sister from heart valve problem Social History Tobacco Use Types Packs/Day Years Used Date Smoking Tobacco: Every Day Cigarettes 0.3 30 Started: 11/28/1977 Smokeless Tobacco: Never Tobacco Cessation:Ready to Q uit: Yes Comments:Since teens, used to be 2 ppd, now [...] How often do you attend chur or anabaptist services? Patient declined 05/17/2022 Do you belong [...] Answer Date Recorded PHQ-2 Score 3 [facility]ational Stress Questionnaire Answer Date Recorded [...] or slept in a intermediate (including now)? No 05/17/2022 Depression Answer Date [...] Orientation Straight 03/01/2019 10 :12 AM CDT Last Filed Vital Signs Vital Sign Reading Time Taken Comments Blood Pressure 114/71 03/29/2023 3:28 PM CDT Pulse 68 03/29/2023 2:32 PM CDT Temperature 36.4 ??C (97.5 ??F) 03/29/2023 2:38 PM CD T Respiratory Rate 15 03/29/2023 3:28 PM CDT Oxygen Saturation 100% 03/29/2023 2:45 PM CDT Inhaled Oxygen Concentration - - Weight 64.6 kg (142 lb 6.7 oz) 06/17/2022 8:00 A M CDT Height 151 cm (4' 11.45) 06/16/2022 1:23 AM CDT Body Mass Index 28.33 06/16/2022 1:23 AM CDT Plan of Treatment Health Maintenance Due Date Last Done Comments CT Colonography 1963 Cologuard 1963 Colonoscopy 1963 Colorectal Cancer Screening 1963 FIT 1963 Hepatitis C Screening 1963 Mammogram 1963 Tobacco Cessation counseling 1963 COVID-19 Vaccine (#1) 1963 Office Visit for Blood Pressure Check / Re-check 12/29/2022 12/29/2021 Creatinine Level (Kidney Function Test) 06/18/2023 06/18/2022, 06/17/2022, 06/16/2022, Additional history exists Potassium Level 06/18/2023 06/18/2022, 05/29, 06/16/2022, Additional history exists Sodium Level 06/18/2023 06/18/2022, 05/29, 06/16/2022, Additional history exists Depression Screening (Annual PHQ-2) 11/28/2023 Lipid (Cholesterol) Screening 02/01/2026 02/01/2021, 03/29/2019 Fasting Glucose for Diabetes Screening 03/29/2026 03/29/2023, 06/18/2022, 06/17/2022, Additional history exists DTaP,Tdap,and Td Vaccines (3 - Td or Tdap) 05/23/2027 05/23/2017, 08/13/2014, 04/22/2011 Pneumococcal vaccine (0-64 years) (3 of 3 - PPSV23 or PCV20) 2028 08/31/2019, 08/29/2017, 01/01/2013 Lung Cancer Screening Discontinued 07/23/2016 Zoster Vaccines Completed 09/11/2021, 09/13/2020 Influenza Vaccine Completed 10/13/2023, , 10/12/2021, Additional history exists Hepatitis B Vaccines Aged Out No long er eligible based on patient's age to complete this topic Medical Devices Implanted Type Area Dry House Tender Device Identifier Shelf Expiration Date Model / Serial / Lot Cmnt Bn [facility] 20gm - [id number] Implanted:Qty : 1 on 12/30/2021 by Cyrus Polk M.D. at [facility] Bone Cement Left: Shoulder Clarence 6188-1-001 / / Grft Dbm Grf Obl 15 - [id number] - [id number] Implanted:Qty : 1 on 02/26/2022 at [facility] Bone or Tissue Left: Shoulder Medtronic 10/14/2023 [id number] / [id number] / 4mm Amplatz Micro Plug Implanted:Qty : 1 on 02/16/2021 by Mustapha Castillo M.D. at [facility] Embolization Coil Brain [employer]ware [id number] / / [id number] Description:MRI Conditional at 1.5T or 3T Max Whole Body YUSEF of 4 W/kg. AAC 09/18/2021 https://[employer]/products/ Hardware E.G. Pins/Screws/R ods Hardware e.g. pins/screws/ro ds Neck Scrw Cmp Pthrd 6.5x25 - [id number] Implanted:Qty : 1 on 02/26/2022 at [facility] Hardware e.g. pins/screws/ro ds Left: Shoulder [employer] 01/13/2032 [id number] / / [id number] Knee Implant Knee Implant Bilateral: Knee Plg Ocl Amp Avpii 6 - [id number] Implanted:Qty : 1 on 02/16/2021 by Mustapha Castillo M.D. at [facility] Mesh or Patch Pedersen 08/27/2025 [id number] / / [id number] Shoulder Implant Shoulder Implant Left: Shoulder Bsplt Glnd Cmp Rv Aug Sm - [id number] Implanted:Qty : 1 on 02/26/2022 at [facility] Shoulder Implant Left: Shoulder [employer] 02/04/2027 [id number] / / [id number] Hum Stm Cmp Rvrs Prim Mini 9 - [id number] Implanted:Qty : 1 on 05/18/2022 by Cyrus Polk M.D. at [facility] Shoulder Implant Left: Shoulder [employer] 09/09/2031 [id number] / / [id number] Medtronic Spinal Cord Stimulator Implanted:01/2020 (Quantity not on file) Spinal Cord Stimulator Back Medtronic [id number] / [id number] / [id number] Description:Medtronic Intell lis Spinal Cord Stimulator model #18548. As of 02/18/23 patient was able to get the stimulator working/charged and has her remote. AAC As of 06/17/22, the stimulator IPG is . This was confirmed by the inpatient pain service. Dr. Lopez confirmed on x-ray that the leads are intact. Scan in normal mode, 1.5T Pain clinic is attempting to get the stimulator charged and working again in the outpatient setting. Stimulator MAY BE ON for future MRIs. Please verify this with the patient during future MRI appointments. SLJ 06/17/22 Explanted Type Area Dry House Tender Device Identifier Shelf Expiration Date Model / Serial / Lot Hum Hd Vrs Dl [id number] - [id number] Implanted:Qty : 1 on 12/30/2021 by Cyrus Polk M.D. at [facility] Explanted:Qty : 1 on 02/26/2022 at [facility] Shoulder Implant Left: Shoulder [employer] 05/29/2031 [id number] / / [id number] Hum [facility] Cmp Rvrs Prim Std 10 - [id number] Implanted:Qty : 1 on 02/26/2022 at [facility] Explanted:Qty : 1 on 05/18/2022 at [facility] Shoulder Implant Left: Shoulder [employer] 12/16/2029 [id number] / / [id number] Spinal Cord Stimulator Explanted: (Quantity not on file) Spinal Cord Stimulator Pelvis Nevro Description:Device was expla nted on 03-10-2020 per [employer] Support. IDN 03-19-21 Procedures Procedure Name Priority Date/Time Associated Diagnosis Comments DX SHOULDER LEFT INGROWTH SERIES 5 VIEWS RAD - Routine (most inpatients and all outpatients) 11/07/2023 10:35 AM BAND SPLICER Painful Total Joint Arthroplasty Initial OUTSIDE DX SKELETAL Routine 10/31/2023 2:35 PM BAND SPLICER from Last 3 Months Results * DX Shoulder Left Ingrowth Series 5 Views (11/07/2023 10:35 AM BAND SPLICER) Anatomical Region Laterality Modality Upper Extremity, Shoulder, M usculoskeletal RST LOS, Musculoskeletal ARZ LOS, Muskuloskeletal FLA LOS Left Digit al Radiography 11/07/2023 10:5 7 AM BAND SPLICER Impressions 11/07/2023 10:59 AM BAND SPLICER 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 Probable increased proximal humeral bone loss since 05/18/22. Narrative 11/07/2023 10:59 AM BAND SPLICER EXAM: ??DX SHOULDER LEFT INGROWTH SERIES 5 VIEWS Procedure Note Sonia Wesley M.D. 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 Probable increased proximal humeral bone loss since05/18/22. Kasie Arenas P.A.-C., M.S. IMG [facility] G[facility] IMAGING PROCEDURES * XR shoulder LT min 2V-Outside Skeletal Xray (10/31/2023 2:35 PM BAND SPLICER) 10/31/2023 2:33 PM BAND SPLICER Narrative [facility] - 10/31/2023 3:14 PM BAND SPLICER This order has been created and auto-finalized to support the import of outside images. If available, original interpretation can be found on the Media Tab in Chart Review, in Document Viewer, or as an image in QREADS. If a re-interpretation or overread is required please follow defined workflow. ?? Provider Not In System IMG DIAGNOSTIC IM AGING PROCEDURES [facility] NA from Last 3 Months Advance Directives For more information, please contact: [phone] Latest Code Status on File Code Status [...] Answer Comments Full Code: Discussed Care Teams Environmental Engineering Intern Relationship Specialty Start Date End Date Elsewhere, Pcp PCP - General Family Medicine 12/25/21
--- OUTSIDE RECORDS SUMMARY | 2023-12-08 13:17 | XMS_ITS | Referral Summary ---
Author Name Unknown Organization [facility] Address [address] [place] [address] Care Team Providers Care Mineral Technologist Name Role Phone Elsewhere, Pcp Primary Care Provider Unavailabl e Source Comments Patient records contain information from all sites at [facility]. For routine questions regarding patient records, call [phone] during business hours, M-F 8:00 AM - 5:00 PM Central Time. Record requests for emergency care only can be directed to [phone] at any time.[facility] Encounters Date Type Department Care Team Description 11/09/2023 Clinical Communication Division of Pain Medicine in [place], [place] [address] [place] [phone] Nikki Cook APRN, C.N.P., M.S. Triage 11/07/2023 11:00 AM SPECIAL EDUCATION RESOURCE ROOM TEACHER Office Visit Department of Orthopedic Surgery in [place], [place] [address] [place] [phone] Cyrus Polk M.D. Pain Shoulder Left (Primary Dx) 11/07/2023 9:59 AM SPECIAL EDUCATION RESOURCE ROOM TEACHER - 11/07/2023 11:59 PM SPECIAL EDUCATION RESOURCE ROOM TEACHER Hospital Encounter Department of Radiology, [facility], in [place], [place] [address] [place] [phone] Kasie Pelaez P.A.-C., M.S. Painful Total Joint Arthroplasty Initial Discharge Disposition: Home or Self Care 11/02/2023 Clinical Communication Department of Orthopedic Surgery in [place], [place] [address] [place] [phone] Cyrus Polk M.D. Appointment from Last 3 Months Allergies Active Allergy Reactions Criticality Noted Date [...] mouth at bedtime. 0 01/28/2022 Active multivit-min/iron/fo lic/saq577 (HAIR, SKIN AND NAILS ADVANCED ORAL) Take [...] Left 01/01/2022 Direct Infection Of Left Chely ulder In Infectious And Parasitic Diseases Classified Elsewhere [...] Overview: Added automatically from request for surgery [id number] Nicotine Dependence Unspecified 11/29/2017 Other Subpoena Server Current Drug Therapy 12/30/2016 Opioid Moderate Or Severe Us e Disorder (Dependence) Uncomplicated 08/27/2016 Bipolar II Disorder 09/27/2007 Transient Ischemic Attack Immunizations Name Administration Dates Next Due Influenza, Unspecified 08/28/2006 Social History Tobacco Use Types Packs/Day Years [...] How often do you attend chur or adventist services? Patient declined 05/17/2022 Do you belong to any clubs o r organizations such as scientologist groups, unions, fraternal [...] Answer Date Recorded PHQ-2 Score 3 02/11/2021 [facility] of Occupat ional [facility] - Occupational Stress Questionnaire Answer Date Recorded [...] or slept in a jail (including now)? No 05/17/2022 Depression Answer Date [...] 06/16/2022 1:23 AM CDT Plan of Treatment Not on file Medical Devices Implanted Type Area Data Warehouse Architect Device Identifier Shelf Expiration Date Model / Serial / Lot Cmnt Bn [facility] 20gm - [id number] Implanted:Qty : 1 on 12/30/2021 by Cyrus Polk M.D. at [facility] Bone Cement Left: Shoulder [place] 6188-1-001 / / Granthony Dbhenrry Grf Obl 15 - [id number] - [id number] Implanted:Qty : 1 on 02/26/2022 at [facility] Bone or Tissue Left: Shoulder Medtronic 10/14/2023 [id number] / [id number] / 4mm Amplatz Micro Plug Implanted:Qty : 1 on 02/16/2021 by Mustapha Castillo M.D. at [facility] Embolization Coil Brain [employer] [id number] / [id number] Description:MRI Conditional at 1.5T or 3T Max Whole Body YUSEF of 4 W/kg. AAC 09/18/2021 [email or web address] Hardware E.G. Pins/Screws/R ods Hardware e.g. pins/screws/ro ds Neck Scrw Cmp Pthrd 6.5x25 - [id number] Implanted:Qty : 1 on 02/26/2022 at [facility] Hardware e.g. pins/screws/ro ds Left: Shoulder [employer] 01/13/2032 [id number] / / [id number] Knee Implant Knee Implant Bilateral: Knee Plg Ocl Amp Avpii 6 - [id number] Implanted:Qty : 1 on 02/16/2021 by Mustapha Castillo M.D. at [facility] Mesh or Patch Pedersen 08/27/2025 [id number] / / [id number] Shoulder Implant Shoulder Implant Left: Shoulder Bsplt Glnd Cmp Rv Aug Sm - [id number] Implanted:Qty : 1 on 02/26/2022 at [facility] Shoulder Implant Left: Shoulder [employer] 02/04/2027 [id number] / / [id number] Hum Stm Cmp Rvrs Prim Mini 9 - [id number] Implanted:Qty : 1 on 05/18/2022 by Cyrus Polk M.D. at [facility] Shoulder Implant Left: Shoulder [employer] 09/09/2031 [id number] / / [id number] Medtronic Spinal Cord Stimulator Implanted:01/2020 (Quantity not on file) Spinal Cord Stimulator Back Medtronic [id number] / [id number] / [id number] Description:Medtronic Intell lis Spinal Cord Stimulator model #91694. As of 02/18/23 patient was able to [...] MRI appointments. SLJ 06/17/22 Explanted Type Area Data Warehouse Architect Device Identifier Shelf Expiration Date Model / Serial / Lot Hum Hd Vrs Dl [id number] - [id number] Implanted:Qty : 1 on 12/30/2021 by Cyrus Polk M.D. at [facility] Explanted:Qty : 1 on 02/26/2022 at [facility] Shoulder Implant Left: Shoulder [employer] 05/29/2031 [id number] / / [id number] [facility] Cmp Rvrs Prim Std 10 - [id number] Implanted:Qty : 1 on 02/26/2022 at [facility] Explanted:Qty : 1 on 05/18/2022 at [facility] Shoulder Implant Left: Shoulder [employer] 12/16/2029 [id number] / / [id number] Spinal Cord Stimulator Explanted: (Quantity not on file) Spinal Cord Stimulator Pelvis Nevro Description:Device was expla nted on 03-10-2020 per [employer] Support. [facility] 03-19-21 Procedures Procedure Name Priority Date/Time Associated Diagnosis Comments DX SHOULDER LEFT INGROWTH SERIES 5 VIEWS RAD - Routine (most inpatients and all outpatients) 11/07/2023 10:35 AM SPECIAL EDUCATION RESOURCE ROOM TEACHER Painful Total Joint Arthroplasty Initial OUTSIDE DX SKELETAL Routine 10/31/2023 2:35 PM SPECIAL EDUCATION RESOURCE ROOM TEACHER from Last 3 Months Results * DX Shoulder Left Ingrowth Series 5 Views (11/07/2023 10:35 AM SPECIAL EDUCATION RESOURCE ROOM TEACHER) Anatomical Region Laterality Modality Upper Extremity, Shoulder, M usculoskeletal RST LOS, Musculoskeletal ARZ LOS, Muskuloskeletal FLA LOS Left Digit al Radiography 11/07/2023 10:5 7 AM SPECIAL EDUCATION RESOURCE ROOM TEACHER Impressions 11/07/2023 10:59 AM SPECIAL EDUCATION RESOURCE ROOM TEACHER 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 Probable increased proximal humeral bone loss since 05/18/22. Narrative 11/07/2023 10:59 AM SPECIAL EDUCATION RESOURCE ROOM TEACHER EXAM: ??DX SHOULDER LEFT INGROWTH SERIES 5 VIEWS Procedure Note Sonia Wesley M.D. 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 Probable increased proximal humeral bone loss since05/18/22. Kasie Arenas P.A.-C., M.S. IMG [facility]NNY GNOSTIC IMAGING PROCEDURES * XR shoulder LT min 2V-Outside Skeletal Xray (10/31/2023 2:35 PM SPECIAL EDUCATION RESOURCE ROOM TEACHER) 10/31/2023 2:33 PM SPECIAL EDUCATION RESOURCE ROOM TEACHER Narrative IIMS - 10/31/2023 3:14 PM SPECIAL EDUCATION RESOURCE ROOM TEACHER This order has been created and auto-finalized to support the import of outside images. If available, original interpretation can be found on the Media Tab in Chart Review, in Document Viewer, or as an image in QREADS. If a re-interpretation or overread is required please follow defined workflow. ?? Provider Not In System IMG DIAGNOSTIC IM AGING PROCEDURES Performing Organization Address City/State/[facility] Co de Phone Number IIMS NA from Last 3 Months Advance Directives For more information, please contact: [phone] Latest Code Status on File Code Status [...] Answer Comments Full Code: Discussed Care Teams Mineral Technologist Relationship Specialty Start Date End Date Elsewhere, Pcp PCP - General Family Medicine 12/25/21
--- OUTSIDE RECORDS SUMMARY | 2023-12-08 13:17 | XMS_ITS | Encounter Summary ---
Author Name Unknown Organization [facility] Address [address] [place] [address] Care Team Providers Care Resort Housekeeper Name Role Phone Elsewhere, Pcp Primary Care Provider Unavailabl e Reason for Referral * Outpatient (Routine) - Closed Specialty Diagnoses / Procedures Referred By Tanja t Referred To Contact Diagnoses Painful Total Joint Arthroplasty Initial Procedures DX Shoulder Left Ingrowth Series 5 Views Kasie Pelaez P.A.-C., M.S. [address] [place] [phone] [facility] Referral ID Status Reason Start Date Expiration Date Visits Re quested Visits Authorized [id number] Closed 11/02/2023 11/01/2024 1 1 K TELEVISION PRODUCTION Reason for Visit * Outpatient (Routine) - Closed Specialty Diagnoses / Procedures Referred By Contac t Referred To Contact Diagnoses Painful Total Joint Arthroplasty Initial Procedures DX Shoulder Left Ingrowth Series 5 Views Kasie Pelaez P.A.-C., M.S. [address] [place] [phone] [facility] Referral ID Status Reason Start Date Expiration Date Visits Re quested Visits Authorized [id number] Closed 11/02/2023 11/01/2024 1 1 Encounter Details Date Type Department Care Team (Latest Contact Info) Description 11/07/2023 9:59 AM CLERK TELEVISION PRODUCTION - 11/07/2023 11:59 PM CLERK TELEVISION PRODUCTION Hospital Encounter Department of Radiology, [facility], in [place], [place] [address] [place] [address] Kasie Pelaez P.A.-C., M.S. [address] [place] [phone] Painful Total Joint Arthroplasty Initial Discharge Disposition: Home or Self Care Social History Tobacco Use Types Packs/Day Years [...] 05/17/2022 How often do you attend chur ch or baptism services? Patient declined 05/17/2022 Do you belong to any clubs o r organizations such as jain groups, unions, fraternal [...] Answer Date Recorded PHQ-2 Score 3 02/11/2021 [facility] of Occupat ional Health - Occupational Stress [...] or slept in a fpc (including now)? No 05/17/2022 Depression Answer Date [...] Start Date End Date acetaminophen (TYLENOL 8 HR) 650 mg ER tablet Take 1,300 mg by mouth 3 (three) times a day. 0 albuterol (PROVENTIL HFA,VENTOLIN HFA) 90 mcg/actuation inhaler Inhale 2 puffs every 6 (six) hours as needed for wheezing or shortness of breath. 0 Arnuity Ellipta 100 mcg/actuation diskus inhaler Inhale 1 puff daily. 0 01/28/2022 aspirin 325 mg tablet Take 1 tablet (325 mg total) by mouth every evening. 0 02/27/2022 atorvastatin (LIPITOR) 80 mg tablet Take 1 tablet (80 mg total) by mouth at bedtime. 90 tablet 3 02/17/2021 Banophen 25 mg capsule Take 25-50 mg by mouth every 4 (four) hours as needed. 0 06/08/2022 benzonatate (TESSALON PERLES) 100 mg capsule Take 100 mg by mouth 3 (three) times a day as needed for cough. 6 03/19/2019 buPROPion XL (WELLBUTRIN XL) 150 mg 24 hr tablet Take 150 mg by mouth every morning. 0 02/04/2021 butalbital-acetaminophe n-caff (ESGIC) 50-325-40 mg per tablet Take 1 tablet by mouth every 6 (six) hours as needed for migraine. 0 02/27/2021 cetirizine (ZyrTEC) 10 mg tablet Take 10 mg by mouth daily. 0 cholecalciferol (VITAMIN D3) 125 mcg (5,000 Unit) capsule Take 5,000 Units by mouth daily. 0 06/07/2022 clindamycin (CLEOCIN T) 1 % external solution Apply 1 application topically 2 (two) times a day. Apply to face. 0 02/22/2022 cyanocobalamin, vitamin B-12, 2,500 mcg tablet, sublingual Place 5,000 mcg under the tongue daily. 0 06/07/2022 diclofenac sodium (VOLTAREN) 1 % gel Apply 2-4 g topically 4 (four) times a day as needed. 0 01/01/2022 esomeprazole (NexIUM) [address] capsule Take 1 capsule (40 mg total) by mouth every morning before breakfast. 30 capsule 1 06/17/2022 FLUoxetine (PROzac) 40 mg capsule Take 80 mg by mouth every morning. 0 furosemide (LASIX) 40 mg tablet Take 1 tablet (40 mg total) by mouth daily. 0 06/17/2022 ipratropium-albuteroL (DUONEB) 0.5-2.5 mg/3 mL nebulizer solution Inhale 3 mL by nebulization 4 (four) times a day as needed for shortness of breath or wheezing. 0 01/16/2021 lamoTRIgine (LaMICtal) 200 mg tablet Take 200 mg by mouth 2 (two) times a day. 3 02/08/2019 MAG-G 27 mg magnesium (500 mg) tablet Take 1 tablet by mouth at bedtime. 3 02/16/2019 meclizine (ANTIVERT) 25 mg tablet Take 25 mg by mouth every 6 (six) hours as needed for dizziness. 0 01/19/2021 medical cannabis capsule Take 1-4 capsules by mouth 2 (two) times a day as needed (pain). THC component: 10 mg CBD component: 0 mg 0 medical cannabis oil inhalation Inhale as needed (pain). Vape THC: 5 mg dose - per pt 0 medical cannabis oil oral Take 1 each by mouth as needed (pain). 1 spray as needed. 5 mg THC 0 multivit-min/iron/folic /tou391 (HAIR, SKIN AND NAILS ADVANCED ORAL) Take 1 tablet by mouth daily. 0 naloxone (NARCAN) 4 mg/actuation nasal spray Administer 1 spray into one nostril as directed. SPRAY 0.1 MILLILITER BY INTRANASAL ROUTE IN 1 NOSTRIL MAY REPEAT DOSE EVERY 2-3 MINUTES NEEDED ALTERNATING NOSTRILS 0 03/26/2022 ondansetron ODT (ZOFRAN-ODT) 4 mg disintegrating tablet 4 mg as needed. 0 05/22/2022 oxyCODONE (ROXICODONE) 10 mg IR tablet Take 10 mg by mouth every 4 (four) hours as needed for pain. Per patient uses 4-5 tablets per day usually 0 02/24/2022 polyethylene glycol (MIRALAX) 17 gram/dose oral powder Take 17 g by mouth as needed for constipation. 0 04/11/2017 pregabalin (LYRICA) 300 mg capsule Take 1 capsule (300 mg total) by mouth 2 (two) times a day. 60 capsule 0 06/24/2022 QUEtiapine (SEROquel) 50 mg tablet Take 50 mg by mouth at bedtime. 0 06/22/2022 rizatriptan (MAXALT) 10 mg tablet Take 1 tablet by mouth as directed. May repeat every 2hrs as needed (Max 30mg/24hrs) 0 05/05/2022 rOPINIRole (REQUIP) 2 mg tablet Take 2 mg by mouth at bedtime. 0 01/28/2022 sennosides-docusate sodium (SENOKOT-S) 8.6-50 mg per tablet Take 1 tablet by mouth 2 (two) times a day. 0 02/26/2022 SUMAtriptan (IMITREX) 5 mg/actuation nasal spray 1-2 sprays as needed. 0 04/24/2022 tiZANidine (ZANAFLEX) 4 mg tablet Take 4-8 mg by mouth every 8 (eight) hours as needed for muscle spasms. Muscle spasms 1 03/27/2019 valACYclovir (VALTREX) 500 mg tablet Take 500 mg by mouth daily. 0 02/22/2018 zonisamide (ZONEGRAN) 100 mg capsule Take 300 mg by mouth 2 (two) times a day. 8 02/22/2019 documented as of this encounter Plan of Treatment Not on file documented as of this encounter Procedures Procedure Name Priority Date/Time Associated Diagnosis Comments DX SHOULDER LEFT INGROWTH SERIES 5 VIEWS RAD - Routine (most inpatients and all outpatients) 11/07/2023 10:35 AM CLERK TELEVISION PRODUCTION Painful Total Joint Arthroplasty Initial documented in this encounter Results * DX Shoulder Left Ingrowth Series 5 Views (11/07/2023 10:35 AM CLERK TELEVISION PRODUCTION) Anatomical Region Laterality Modality Upper Extremity, Shoulder, M usculoskeletal RST LOS, Musculoskeletal ARZ LOS, Muskuloskeletal FLA LOS Left Digit al Radiography 11/07/2023 10:5 7 AM CLERK TELEVISION PRODUCTION Impressions 11/07/2023 10:59 AM CLERK TELEVISION PRODUCTION 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 Probable increased proximal humeral bone loss since 05/18/22. Narrative 11/07/2023 10:59 AM CLERK TELEVISION PRODUCTION EXAM: ??DX SHOULDER LEFT INGROWTH SERIES 5 VIEWS Procedure Note Sonia Wesley M.D. 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 Probable increased proximal humeral bone loss since05/18/22. Kasie Arenas P.A.-C., M.S. IMG JOHNNY GNOSTIC IMAGING PROCEDURES documented in this encounter Visit Diagnoses Diagnosis Painful Total Joint Arthroplasty Initial documented in this encounter Additional Health Concerns Assessment Noted Time PHQ-9 Depression Total Score: 16 021 12:00 AM CDT documented as of this encounter Care Teams Resort Housekeeper Relationship Specialty Start Date End Date Elsewhere, Pcp PCP - General Family Medicine 12/25/21 documented as of this encounter
--- OUTSIDE RECORDS SUMMARY | 2023-12-08 13:18 | XMS_ITS | Encounter Summary ---
Author Name Unknown Organization [facility] Address [address] [place] [address] Care Team Providers Care Director Of Music Name Role Phone Elsewhere, Pcp Primary Care Provider Unavailabl e Reason for Referral * MRI/CAT/PET Scan (Routine) - Authorized Specialty Diagnoses / Procedures Referred By Tanja baca Referred To Contact Radiology Diagnoses Painful Total Joint Arthroplasty Initial Procedures CT Shoulder Left without IV Contrast Kasie Pelaez P.A.-C., M.S. [address] [place] [phone] [facility] Referral ID Status Reason Start Date Expiration Date V isits Requested Visits Authorized [id number] Authorized 11/02/2023 11/01/2024 1 1 ALLMENT DEALER * Outpatient (Routine) - Closed Specialty Diagnoses / Procedures Referred By Tanja baca Referred To Contact Diagnoses Painful Total Joint Arthroplasty Initial Procedures DX Shoulder Left Ingrowth Series 5 Views Kasie Pelaez P.A.-C., M.S. [address] [place] [phone] [facility] Referral ID Status Reason Start Date Expiration Date Visits Re quested Visits Authorized [id number] Closed 11/02/2023 11/01/2024 1 1 ALLMENT DEALER Reason for Visit * Reason Onset Date Comments Appointment 11/02/2023 Encounter Details Date Type Department Care Team (Late st Contact Info) Description 11/02/2023 Clinical Communication Department of Orthopedic Surgery in [place], [place] [address] [place] [phone] Cyrus Polk M.D. [address] [place] [address] Appointment Social History Tobacco Use Types Packs/Day Years [...] often do you attend chur ch or holiness services? Patient declined 05/17/2022 Do you belong to any clubs o r organizations such as catholic groups, unions, fraternal [...] Answer Date Recorded PHQ-2 Score 3 02/11/2021 [facility] of Occupat ional Health - [...] or slept in a long-term (including now)? No 05/17/2022 Depression Answer Date [...] Scheduled Orders Name Type Priority Associated Diagnoses Orde r Schedule CT Shoulder Left without IV Contrast Imaging RAD - Routine (most inpatients and all outpatients) Painful Total Joint Arthroplasty Initial Expected: 11/15/2023 (Approximate), Expires: 01/31/2025 documented as of this encounter Results * DX Shoulder Left Ingrowth Series 5 Views (11/07/2023 10:35 AM INSTALLMENT DEALER) Anatomical Region Laterality Modality Upper Extremity, Shoulder, M usculoskeletal RST LOS, Musculoskeletal ARZ LOS, Muskuloskeletal FLA LOS Left Digit al Radiography 11/07/2023 10:5 7 AM INSTALLMENT DEALER Impressions 11/07/2023 10:59 AM INSTALLMENT DEALER 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 Probable increased proximal humeral bone loss since 05/18/22. Narrative 11/07/2023 10:59 AM INSTALLMENT DEALER EXAM: ??DX SHOULDER LEFT INGROWTH SERIES 5 VIEWS Procedure Note Sonia Wesley M.D. 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 Probable increased proximal humeral bone loss since05/18/22. Kasie Arenas P.A.-C., M.S. IMG JOHNNY GNOSTIC IMAGING PROCEDURES documented in this encounter Visit Diagnoses Diagnosis Painful Total Joint Arthroplasty Initial- Primary Painful Total Joint Arthroplasty Initial documented in this encounter Additional Health Concerns Assessment Noted Time PHQ-9 Depression Total Score: 16 021 12:00 AM CDT documented as of this encounter Care Teams Director Of Music Relationship Specialty Start Date End Date Elsewhere, Pcp PCP - General Family Medicine 12/25/21 documented as of this encounter
--- OUTSIDE RECORDS SUMMARY | 2023-12-08 13:18 | XMS_ITS | Encounter Summary ---
Author Name Unknown Organization [facility] Address [address] [place] [address] Care Team Providers Care Roving Hand Name Role Phone Elsewhere, Pcp Primary Care Provider Unavailabl e Reason for Visit * Appointment Request (Routine) - Closed Specialty Diagnoses / Procedures Referred By Tanja baca Referred To Contact Orthopedic Surgery Referral ID Status Reason Start Date Expiration Date Visits Re quested Visits Authorized [id number] Closed 08/09/2022 08/09/2023 1 1 Encounter Details Date Type Department Care Team (Late st Contact Info) Description 04/28/2023 11:15 AM CDT Office Visit Department of Orthopedic Surgery in [place], [place] [address] [place] [address] Cyrus Polk M.D. [address] [place] [phone] Pain Shoulder Left (Primary Dx); Direct Infection Of Left Shoulder In Infectious And Parasitic Diseases Classified Elsewhere (HCC) Social History Tobacco Use Types Packs/Day Years [...] How often do you attend chur or sabianism services? Patient declined 05/17/2022 Do you belong to any clubs o r organizations such as synagogue groups, unions, fraternal [...] Answer Date Recorded PHQ-2 Score 3 02/11/2021 [facility] of Occupat ional Health - Occupational [...] or slept in a assisted (including now)? No 05/17/2022 Depression Answer Date [...] as of this encounter Progress Notes * Jam, Cyrus W, M.D. - 04/28/2023 11:15 AM CDT SUBJECTIVE HISTORY OF PRESENT ILLNESS I did a complex revision reverse. It is stable. She has generalized pain. OBJECTIVE PHYSICAL EXAMINATION General: Female in no acute distress. Musculoskeletal: Today her active elevation is 110, passive 120, external rotation 30, internal rotation sacrum. Strength 4-/5 in all directions. Motion smooth and stable. Incision is well healed. Noerythema, warmth, or drainage. DIAGNOSTICS Radiographs demonstrate a well-aligned reverse. ASSESSMENT / PLAN #1 Female status post reverse, doing well At this point, I reviewed postop rehabilitation restrictions. All questions answered. Cyrus Polk M.D. CT CT Job ID: [id number] documented in this encounter Plan of Treatment Not on file documented as of this encounter Visit Diagnoses Diagnosis Pain Shoulder Left- Primary Direct Infection Of Left Shoulder In Infectious And Parasitic Diseases Classified Elsewhere (HCC) documented in this encounter Additional Health Concerns Assessment Noted Time PHQ-9 Depression Total Score: 16 021 12:00 AM CDT documented as of this encounter Care Teams Roving Hand Relationship Specialty Start Date End Date Elsewhere, Pcp PCP - General Family Medicine 12/25/21 documented as of this encounter
--- OUTSIDE RECORDS SUMMARY | 2023-12-08 13:18 | XMS_ITS | Encounter Summary ---
Author Name Unknown Organization [facility] Address [address] [place] [address] Care Team Providers Care Temporary Administrative Assistant Name Role Phone Elsewhere, Pcp Primary Care Provider Unavailabl e Reason for Visit * Appointment Request (Routine) - Closed Specialty Diagnoses / Procedures Referred By Tanja baca Referred To Contact Neurology Robert Diehl M.D. [address] [place] [phone] Referral ID Status Reason Start Date Expiration Date Visits Re quested Visits Authorized [id number] Closed 02/16/2023 02/16/2024 1 1 Encounter Details Date Type Department Care Team (Latest Contact Info) Description 04/26/2023 3:30 PM CDT Virtual Visit Department of Neurology in [place], [place] [address] [place] [phone] Robert Diehl M.D. [address] [place] [phone] Cervicogenic Headache (Primary Dx) Social History Tobacco Use Types [...] week 05/17/2022 How often do you attend [facility] or zoroastrianism services? Patient declined 05/17/2022 Do you belong to any clubs o r organizations such as orthodox groups, unions, fraternal [...] PHQ-2 Score 3 02/11/2021 [facility] - Occupational Stress [...] slept in a senior living (including now)? No 05/17/2022 Depression Answer Date [...] as of this encounter Progress Notes * Robert Diehl M.D. - 04/26/2023 3:30 PM CDT Telephonic visit Ms. 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 She is on anti- platelet and high-intensity statin. Unfortunately she is still smoking cigarettes. She is a background of treated bipolar and history of spinal surgery with a chronic pain syndrome and fibromyalgia. In the last year she has developed nearly daily occipital based headaches that radiate over the thehead and are severe at approximately eight to 9/10. There are no associated neurologic features with this headache and they do not have a thunderclap character. She has been told that she requires additional cervical spine surgeries however she has deferred this option. Her follow-up image was completed via magnetic resonance image, she had a panic attack while in [facility] but has since recovered, there is excellent documentation regarding this episode march 2023. The angiogram demonstrates no evidence of growth to the intracerebral aneurysms, thankfully. The sacrificed right cervical extracranial vertebral artery remains unchanged. We reviewed her medication regimen, for the headache she is alternating between Triptan, taking them on a nearly daily basis. She is on lamotrigine for bipolar however she is on no preventive agent. It is not clear whether she has tried any additional agents CGRP peptide and or injections. Given her history of stroke and vascular disease as well as active smoking I would caution against continued use of Triptan, we discussed this in addition that daily use of Triptan might in fact cause rebound headache. I would like to have the patient reviewed in our headache clinic to optimize herheadache prevention regimen particularly in lieu of the Triptan utilization I wonder if a CGRP peptide might be reasonable and or any occipital based injections. I have taken the liberty of referring to our headache Clinic for opinion, I appreciate their reviewof the case For the patient's history of unruptured cerebral aneurysms again highlighted the importance of smoking cessation she is in the pre contemplative stage. She will need a follow-up noninvasive image such as a CT angiogram in approximately two years to ensure no interval growth of the 4-5 mm left ICA aneurysms. I wished her happy belated birthday, she is doing well otherwise. Electronically signed by: Robert Diehl M.D. 04/26/23 4:14 PM CDT Diagnosis Plan 1. Cervicogenic Headache Neurology - Headache consult (clinic) documented in this encounter Plan of Treatment Not on file documented as of this encounter Visit Diagnoses Diagnosis Cervicogenic Headache- Primary documented in this encounter Additional Health Concerns Assessment Noted Time PHQ-9 Depression Total Score: 16 021 12:00 AM CDT documented as of this encounter Care Teams Temporary Administrative Assistant Relationship Specialty Start Date End Date Elsewhere, Pcp PCP - General Family Medicine 12/25/21 documented as of this encounter
--- OUTSIDE RECORDS SUMMARY | 2023-12-08 13:18 | XMS_ITS | Encounter Summary ---
Author Name Unknown Organization [facility] Address [address] [place] [address] Care Team Providers Care Printer Assistant Name Role Phone Elsewhere, Pcp Primary Care Provider Unavailabl e Reason for Visit * Reason Onset Date Comments Appointment 05/04/2023 Encounter Details Date Type Department Care Team (Late st Contact Info) Description 05/04/2023 Clinical Communication Department of Orthopedic Surgery in [place], [place] [address] [place] [phone] Cyrus Polk M.D. [address] [place] [phone] Appointment Social History Tobacco Use Types Packs/Day [...] How often do you attend chur or latter day services? Patient declined 05/17/2022 Do you belong to any clubs o r organizations such as adventism groups, unions, fraternal [...] Answer Date Recorded PHQ-2 Score 3 [facility] Answer Date [...] documented as of this encounter Care Teams Printer Assistant Relationship Specialty Start Date End Date Elsewhere, Pcp PCP - General Family Medicine 12/25/21 documented as of this encounter
--- OUTSIDE RECORDS SUMMARY | 2023-12-08 13:18 | XMS_ITS | Encounter Summary ---
Author Name Unknown Organization [facility] Address [address] [place] [address] Care Team Providers Care Gusset Edger Name Role Phone Elsewhere, Pcp Primary Care Provider Unavailabl e Reason for Visit * MRI/CAT/PET Scan (Routine) - Closed Specialty Diagnoses / Procedures Referred By Tanja baca Referred To Contact Radiology Diagnoses Aneurysm Cerebral Unruptured (HCC) Procedures MR Brain Angiogram without IV Contrast Robert Diehl M.D. 200 [place] [phone] [facility] Referral ID Status Reason Start Date Expiration Date Visits Re quested Visits Authorized [id number] Closed 02/16/2023 02/16/2024 1 1 Encounter Details Date Type Department Care Team (Latest Contact Info) Description 03/29/2023 12:02 PM CDT - 03/29/2023 3:15 PM T Hospital Encounter Department of Radiology, [facility] in [place], [place] [address] [place] [phone] Robert Diehl M.D. [address] [place] [phone] Discharge Disposition: Home or Self Care Social [...] any clubs o r organizations such as voodoo groups, unions, fraternal [...] Answer Date Recorded PHQ-2 Score 3 02/11/2021 [facility] Occupat ional Health - Occupational [...] or slept in a custodial (including now)? No 05/17/2022 Depression Answer Date [...] Sign Reading Time Taken Comments Blood Pressure 112/73 03/29/2023 2:32 PM CDT Pulse 68 03/29/2023 2:32 PM CDT Temperature - - Respiratory Rate 18 03/29/2023 12:40 PM CDT Oxygen Saturation 97% 03/29/2023 2:32 PM CDT Inhaled Oxygen Concentration - - [...] as needed. 5 mg THC 0 multivit-min/iron/folic /[id number] (HAIR, SKIN AND NAILS ADVANCED ORAL) Take [...] 8 02/22/2019 documented as of this encounter Nursing Notes * Su Fernández R.N. - 03/29/2023 12:45 PM CDT Patient took valium at home at 1030. Patient has son with Cyrus Mosquera who will be driving her homeafter. No concerns noted. * Abraham Doshi R.N. - 03/29/2023 12:45 PM CDT Prior to scan, vascular technologist sonographer reported that patient took an unidentified substance. During scan patient was responsive and followed commands. Directly after scan, nursing was notified, patient reported her eyes were rolling around while awake and even when closing her eyes. Patient was anxious and short of breath but O2 98%. Ice packs applied to neck, forehead and chest. Soon after, patient became non-verbal and non-responsive and did not open her eyes to questions. VS WNL. Radiologist notified (Dr. Arnold-came to see patient), Arin Fowler APRN notified. Patient brought back to nursing pre-start. Patient still unable to be aroused even with firm sternal rub. 1 dose of narcan was givenper verbal order of Arin Fowler APRN. VS remained stable, but patient remained un-responsive toverbal stimuli and sternal rub. CRIPPLE CHASER called. Even though patient VS WNL, patient placed on Oxygen. 2L NC. 2nd dose of Narcan administered by CRIPPLE CHASER. Patient transported to ED by CRIPPLE CHASER. documented in this encounter Plan of Treatment Not on file documented as of this encounter Procedures Procedure Name Priority Date/Time Associated Diagnosis Comments MR BRAIN ANGIOGRAM WITHOUT IV CONTRAST RAD - Routine (most inpatients and all outpatients) 03/29/2023 2:19 PM CDT Aneurysm Cerebral Unruptured (HCC) MR NECK ANGIOGRAM WITHOUT AND WITH IV CONTRAST RAD - Routine (most inpatients and all outpatients) 03/29/2023 2:19 PM CDT Stroke Cerebrovascular Accident Personal History Occlusion Vertebral Artery With lnfarction (HCC) documented in this encounter Visit Diagnoses Not on filedocumented in this encounter Administered Medications Inactive Administered Medications - up to 3 most recent administrations Medication Order MAR Action Action Date Dose Rate Site gadobutrol injection 7 mL (GADAVIST) 7 mL, oral, Once in imaging, contrast, Starting on 03/29/23 at 1403, For 1 dose, Intrathecal doses greater than 0.25 mL not recommended. Given 03/29/2023 2:14 PM CDT 7 mL naloxone injection 0.4 mg 0.4 mg, intravenous, As needed, reversal, Starting on 03/29/23 at 1430, Patient non-responsive post scan. Given 03/29/2023 2:33 PM CDT 0.4 mg sodium chloride (PF) 0.9 % injection 40 mL 40 mL, intravenous, Once, On 03/29/23 at 1415, For 1 dose Given 03/29/2023 2:15 PM CDT 40 mL documented in this encounter Additional Health Concerns Assessment Noted Time PHQ-9 Depression Total Score: 16 021 12:00 AM CDT documented as of this encounter Care Teams Gusset Edger Relationship Specialty Start Date End Date Elsewhere, Pcp PCP - General Family Medicine 12/25/21 documented as of this encounter
--- OUTSIDE RECORDS SUMMARY | 2023-12-08 13:18 | XMS_ITS | Encounter Summary ---
Author Name Unknown Organization [facility] Address [address] [place] [address] Care Team Providers Care Ibm Bpm Architect Name Role Phone Elsewhere, Pcp Primary Care Provider Unavailabl e Reason for Visit * Reason Comments Ingestion Encounter Details Date Type Department Care Team ([facility] st Contact Info) Description 03/29/2023 3:16 PM CDT - 03/29/2023 4:21 PM CDT Emergency [facility] Emergency Department [address] [place] [phone] Carlitos Armendariz M.D. [address] [place] [phone] Somnolence (Primary Dx) Discharge Disposition: Home or Self Care Social [...] week 05/17/2022 How often do you attend [facility] or temple services? Patient declined 05/17/2022 Do you belong to any clubs o r organizations such as christianity groups, unions, fraternal [...] Answer Date Recorded PHQ-2 Score 3 02/11/2021 [facility] of Occupat ional Health - Occupational Stress [...] or slept in a [facility] (including now)? No 05/17/2022 Depression Answer Date [...] Pressure 114/71 03/29/2023 3:28 PM CDT Pulse - - Temperature 36.4 ??C (97.5 ??F) 03/29/2023 2:38 PM CD T Respiratory Rate 15 03/29/2023 3:28 PM CDT Oxygen Saturation 100% 03/29/2023 2:45 PM CDT Inhaled Oxygen Concentration - - Weight - - Height - - Body Mass Index - - documented in this encounter Discharge Instructions * Discharge Instructions* Sabrina Santos M.D. - 03/29/2023 4:06 PM CDT - please seek medical attention if you experience any further episodes of unresponsiveness documented in this encounter Medications at Time [...] as needed. 5 mg THC 0 multivit-min/iron/folic /[id number] (HAIR, SKIN AND NAILS ADVANCED ORAL) Take [...] 8 02/22/2019 documented as of this encounter Consult Notes * Anita Cronin, NIKKY, C.N.P., M.S.N. - 03/29/2023 3:21 PM CDT SUBJECTIVE REASON FOR CONSULT Asked to evaluate Angie Mosquera who is a 57 y.o. female for complaints of unresponsiveness. HISTORY OF PRESENT ILLNESS / BACKGROUND Ms. Angie Mosquera is a 57yo female who presented to [facility] today for MRA brain and neck on 03/29/23 for evaluation of cerebral aneurysm. Per report, Ms. Mosquera took Valium prior to presentation. During the scan she was responsive and followed commands. Directly after the scan, nursing noted eye rolling while awake, anxiety, and shortness of breath. Soon after, she became unresponsive. Radiology was notified and presented to bedside. She was given a dose of narcan. Her vital signs remained stable but had continued unresponsiveness. DIRECTOR OF FINANCE was called. On my arrival, she was unresponsive and did not respond to painful stimuli. We gave an additional dose of narcan at 1443 with no response. Code blue was called although she never lost pulses or needed any further ACLS intervention. This was cancelled shortly after. Dr. Perkins presented to the bedside and we decided to give a single dose of Flumazenil to try to reverse any benzos she may have taken prior to coming in. With her co ntinued unresponsiveness, we called [facility] Nigel for transportation to [facility] ED for further evaluation. REVIEW OF SYSTEMS Review of systems not obtained due to patient factors: altered mental status. OBJECTIVE I have reviewed the current vital sign data as applicable. Please review the DIRECTOR OF FINANCE Narrator for details regarding this evaluation. PHYSICAL EXAM Gen: resting in bed, unresponsive Skin: Warm and dry. Eyes: PERRL. No injection or icterus. HENT: NC/AT. Chest/Lungs: No respiratory distress. CTAB. CV: RRR. No MRG. GI: Soft, non-tender, non-distended. + bowel sounds. MSK: No LE edema. Extremities symmetric. Neuro: unresponsive DIAGNOSTICS I have reviewed relevant laboratory, imaging, and other diagnostics as applicable to this consultation. Pertinent Results Include : Glucose: 97. ASSESSMENT / PLAN RECOMMENDATIONS - Transfer to [facility] ED for further evaluation - Case discussed with Dr. Perkins who was present at the bedside documented in this encounter ED Notes * Carlitos Armendariz M.D. - 03/29/2023 4:08 PM CDT Images from the original note were not included. Please see resident/GOLDEN/medical student note for further discussion and details. DIFFERENTIAL DIAGNOSIS Somnolence Accidental drug overdose. CVA Intracranial hemorrhage Alcohol abuse , etc. DIAGNOSTIC STUDIES LABORATORY RESULTS: Abnormal Labs Reviewed - No data to display IMAGING STUDIES: No orders to display MEDICAL DECISION MAKING Ms. Mosquera is a very pleasant 57 y.o. female who presented after being hard to arouse post MRI viaEMS. On initial evaluation she was found resting, breathing comfortably and hemodynamically stable.Triage vital signs were reviewed and found to be relatively unremarkable. Available prior medical records were also reviewed and considered. Upon arrival, patient was fully awake, alert and oriented x3. Patient vehemently expressed that sheprefers to go home and feels well. She explained herself in that she had taken in some tizanidine right before the MRI. Therefore, by the time the MRI was done, it is possible that the patient was indeep sleep and was hard to arouse. Upon waking up, patient is alert, awake and oriented x3 and is able to function on her own. She has no complaints at this time. We discussed the pros and cons of leaving against medical advice and patient was very patient and grateful that we had a discussion. I believe that the patient is safe for discharge. Nonetheless, patient was able to sign an AMA form in that would have wished to some laboratory testing and ECG however patient does not feel that she needs it at this time. Patient was subsequently discharged home in stable condition and with strict return precautions. I discussed the uncertainty of the diagnosis, the importance of followup and the importance of returning to the Emergency Department if any new or worsening symptoms were to occur, or any further concerns. I also advised follow-up with the Emergency Department if she is unable to get appropriate followup in a timely manner. The patient was in agreement with the treatment plan and verbalized understanding of return precautions. Disposition Vital Signs: BP 114/71 (BP Location: Right arm, Patient Position: Lying) Temp 36.4 ??C (Axillary) Resp 15 SpO2 100% CLINICAL IMPRESSION Final Diagnoses: as of 03/29/23 1609 Somnolence GENERAL UTILITY MAINTENANCE REPAIRER ATTESTATION I have personally seen and examined this patient. I have fully participated in the care of this patient. I have reviewed all clinical information including history, physical exam, orders, and plan. Jim with the note of the resident. Carlitos Armendariz M.D. 04/06/23 0528 * Sabrina Santos M.D. - 03/29/2023 3:31 PM CDT SUBJECTIVE CHIEF COMPLAINT/REASON FOR VISIT Ingestion HISTORY OF PRESENT ILLNESS Angie Mosquera is a 57-year-old female with medical comorbidities including fibromyalgia, cervical spine disorder, history of vertebral artery dissection, bipolar 2 disorder, history of stroke who was brought to the ED after becoming unresponsive during MRI. She was receiving and MRI of the brain neck for monitoring of a left paraclinoid ICA aneurysm. She reports that she took 1 tablet of tizanidine prior to the study as she was not given any other medications for anxiety. She reports a significant history of panic attacks as well as claustrophobia andsays that she does not like going into the tube. Per report, patient became extremely anxious and then nonresponsive to sternal rub during the MRI. An DIRECTOR OF FINANCE was called and she received 2 doses of Narcan due to concern for opioid overdose as etiology of unresponsiveness. She was brought to the ED. She became responsive in the ambulance on the way over. She reports that she feels completely normal and does not have any concerns. She feels that she had a panic attack in the MRI. She denies any other ingestions. She endorses chest pain reproducible to palpation on her sternum which she attributes to sternal rub. She denies chest pressure, shortness of breath, headache, vision changes, dizziness, suicidal ideation. She reports a desire to leave. REVIEW OF SYSTEMS Pertinent positives and negatives as per HPI. OBJECTIVE Initial Vitals [03/29/23 1438] Temperature 36.4 ??C Pulse Heart Rate 70 Resp Rate 14 Blood Pressure 141/74 SpO2 100 % Pain Score PHYSICAL EXAMINATION Constitutional: Vitals reviewed. HENT: Head: Normocephalic and atraumatic. Mouth/Throat: Oropharynx is clear and moist. Mucous membranes are moist. Eyes: Conjunctivae are normal. Pupils are equal, round, and reactive to light. Neck: Neck supple. Cardiovascular: Normal rate, regular rhythm and normal heart sounds. Pulses are palpable. Pulmonary/Chest: Effort normal and breath sounds normal. There is normal air entry. No stridor. No tachypnea. No respiratory distress. Expiration is no prolonged expiration. Air movement is not decreased. She has no wheezes. She has no rhonchi. She has no rales. She exhibits no retraction. Abdominal: Soft. There is no abdominal tenderness. Musculoskeletal: General: Normal range of motion. Cervical back: Neck supple. Neurological: Alert and oriented to person, place, and time. Skin: Skin is warm and dry. Tattoos over majority of body Psychiatric: She has a normal mood and affect. Behavior is normal. ASSESSMENT/PLAN Differential diagnosis includes panic attack, claustrophobia, arrhythmia, intracranial pathology. MRI today showed stable left ICA aneurysm which is reassuring. In the ED, she is awake, alert, oriented x3, without complaints. No abnormalities on physical exam or vital signs. Patient declined any further workup. Thorough discussion of risks/benefits of further evaluation was had and patient declined. She was able to describe risks and benefits and expresseda plan to immediately go to the ED if she experienced any further similar symptoms. She also noted that her son lives next door to her and will be keeping a close eye on her. Discharge home. ED Course as of 03/29/23 1611 TueMarch 29, 2023 1610 Blood Pressure: 114/71 1611 Heart Rate: 76 1611 Resp Rate: 15 Final Diagnoses: as of 03/29/23 1611 Somnolence Sabrina Santos M.D. Resident 03/29/23 1611 documented in this encounter Plan of Treatment Not on file documented as of this encounter Procedures Procedure Name Priority Date/Time Associated Diagnosis Comments GLUCOSE POCT, B Routine 03/29/2023 2:43 PM CDT documented in this encounter Results * Glucose, POCT (03/29/2023 2:43 PM CDT) Glucose, POCT, B 97 70 - 140 mg/dL 03/30/2023 7:57 AM CDT PCLX Site Capillary 03/30/2023 7:57 AM CDT PCLX Blood 03/29/2023 2:43 PM CDT 03/30/2023 7:57 AM CDT Unknown Provider LAB POCT ORDERABLES- MANUAL POC [facility] [address] [place] [address], [facility] PCLX [facility] POC [address] [place] [address] documented in this encounter Visit Diagnoses Diagnosis Somnolence- Primary documented in this encounter Administered Medications Inactive Administered Medications - up to 3 most recent administrations Medication Order MAR Action Action Date Dose Rate Site flumazeniL injection (ROMAZICON) Code/trauma/sedation medication, Starting on Tue03/29/23 at 1447 Given 03/29/2023 2:47 PM CDT 0.2 mg naloxone injection Code/trauma/sedation medication, Starting on Tue03/29/23 at 1442 Given 03/29/2023 2:42 PM CDT 0.4 mg documented in this encounter Active and Recently Administered Medications Times are shown in CDT. PRN Medication Order 03/27/2023 03/28/2023 03/29/2023 flumazeniL injection (ROMAZICON) (CANCELED) Code/trauma/sedation medication, Starting on Tue03/29/23 at 1447 1447 (Given - Provid er: Unruly Lowry R.N., CCRN) naloxone injection (CANCELED) Code/trauma/sedation medication, Starting on Tue03/29/23 at 1442 1442 (Given - Provid er: Unruly Lowry R.N., CCRN) documented in this encounter Additional Health Concerns Assessment Noted Time PHQ-9 Depression Total Score: 16 02/11/ 021 12:00 AM CDT documented as of this encounter Care Teams Ibm Bpm Architect Relationship Specialty Start Date End Date Elsewhere, Pcp PCP - General Family Medicine 12/25/21 documented as of this encounter
--- OUTSIDE RECORDS SUMMARY | 2023-12-08 13:18 | XMS_ITS | Encounter Summary ---
Author Name Unknown Organization [facility] Address [address] [place] [address] Care Team Providers Care In Room Dining Server Name Role Phone Elsewhere, Pcp Primary Care Provider Unavailabl e Reason for Referral * MRI/CAT/PET Scan (Routine) - Closed Specialty Diagnoses / Procedures Referred By Tanja baca Referred To Contact Radiology Diagnoses Aneurysm Cerebral Unruptured (HCC) Procedures MR Brain Angiogram without IV Contrast Robert Diehl M.D. [address] [place] [address] [facility] Referral ID Status Reason Start Date Expiration Date Visits Re quested Visits Authorized [id number] Closed 02/16/2023 02/16/2024 1 1 * MRI/CAT/PET Scan (Routine) - Closed Specialty Diagnoses / Procedures Referred By Tanja baca Referred To Contact Radiology Diagnoses Stroke Cerebrovascular Accident Personal History Occlusion Vertebral Artery With lnfarction (HCC) Procedures MR Neck Angiogram without and with IV Contrast Robert Diehl M.D. [address] [place] [address] [facility] Referral ID Status Reason Start Date Expiration Date Visits Re quested Visits Authorized [id number] Closed 02/16/2023 02/16/2024 1 1 Reason for Visit * MRI/CAT/PET Scan (Routine) - Closed Specialty Diagnoses / Procedures Referred By Tanja baca Referred To Contact Radiology Diagnoses Aneurysm Cerebral Unruptured (HCC) Procedures MR Brain Angiogram without IV Contrast Robert Diehl M.D. [address] [place] [address] [facility] Referral ID Status Reason Start Date Expiration Date Visits Re quested Visits Authorized [id number] Closed 02/16/2023 02/16/2024 1 1 Encounter Details Date Type Department Care Team (Latest Contact Info) Description 02/28/2023 12:27 PM CDT - 02/28/2023 11:59 PM CDT Hospital Encounter Department of Radiology, [facility] in [place], [place] [address] [place] [address] Robert Diehl M.D. [address] [place] [phone] Stroke Cerebrovascular Accident Personal History; Occlusion Vertebral Artery With lnfarction (HCC); Aneurysm Cerebral Unruptured (HCC) Discharge Disposition: Home or Self Care Social [...] often do you attend chur ch or rastafari services? Patient declined 05/17/2022 Do you belong to any clubs o r organizations such as baptist groups, unions, fraternal [...] Answer Date Recorded PHQ-2 Score 3 02/11/2021 [facility] - Occupational [...] slept in a group home (including now)? No 05/17/2022 Depression Answer Date [...] as needed. 5 mg THC 0 multivit-min/iron/folic /emp677 (HAIR, SKIN AND NAILS ADVANCED ORAL) Take [...] as of this encounter Nursing Notes * Soham Brown R.N. - 02/28/2023 12:45 PM CDT MRI canceled due to remote for stimulator not fully charge. Unable to go into MRI mode. MRI techs educated the patient and confirmed with radiologist that the scan had to be rescheduled. documented in this encounter Plan of Treatment Not on file documented as of this encounter Procedures Procedure Name Priority Date/Time Associated Diagnosis Comments MR NECK ANGIOGRAM WITHOUT AND WITH IV CONTRAST RAD - Routine (most inpatients and all outpatients) 03/29/2023 2:19 PM CDT Stroke Cerebrovascular Accident Personal History Occlusion Vertebral Artery With lnfarction (HCC) MR BRAIN ANGIOGRAM WITHOUT IV CONTRAST RAD - Routine (most inpatients and all outpatients) 03/29/2023 2:19 PM CDT Aneurysm Cerebral Unruptured (HCC) documented in this encounter Results * MR Brain Angiogram without IV Contrast (03/29/2023 2:19 PM CDT) Anatomical Region Laterality Modality Head, Brain, Neuroradiology RST LOS, Neuroradiology ARZ LOS, Neuroradiology FLA LOS N/A Magnetic Resonance 03/29/2023 2:32 PM CDT Impressions 03/29/2023 2:50 PM CDT 1. Stable exam. 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 Retrograde flow in the distal intracranial right vertebral artery from the basilar artery to the level of the posterior inferior cerebellar artery. 2. 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 Stable small inferiorly projecting aneurysms or infundibula from the left supraclinoid ICA. Narrative 03/29/2023 2:50 PM CDT EXAM: MR NECK ANGIOGRAM WITHOUT AND WITH IV CONTRAST, MR BRAIN ANGIOGRAM WITHOUT IV CONTRAST COMPARISON: CTA head and neck 06/15/2022 FINDINGS: CTA neck: Normal branching pattern from the aortic arch. 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 A small residual right vertebral artery is seen arising from the right subclavian artery and extending superiorly to approximately the C4-C5 level where it contributes to collateral branches. Distally there is a small amount of retrograde flow from the basilar artery to the expected level of the posterior inferior cerebellar artery. The cervical carotid arteries and the left vertebral artery are normal in caliber. No evidence of new dissection. CTA head: Flow is not seen in the distal right vertebral artery on this exam due to suppression of retrograde flow by the 3D anac-ct-dwruln technique. The intracranial arteries are otherwise normal in caliber without evidence of large vessel occlusion. Stable 4-5 mm aneurysm arising from the cavernous left internal carotid artery and projecting laterally (series 4, image 68) and stable small inferiorly projecting aneurysms or infundibula from the left supraclinoid ICA (series 402, image 4; series 4, images 63-67). Procedure Note Maritza Wynn M.D. - 03/29/2023 EXAM: MR NECK ANGIOGRAM WITHOUT AND WITH IV CONTRAST, MR BRAIN ANGIOGRAMWITHOUT IV CONTRAST COMPARISON: CTA head and neck 06/15/2022 FINDINGS: CTA neck: Normal branching pattern from the aortic arch. History ofembolization of the V2 segment of the right vertebral artery. A small residual right vertebral artery isseen arising from the right subclavian artery and extending superiorly to approximately theC4-C5 level where it contributes to collateral branches. Distally there is a small amount ofretrograde flow from the basilar artery to the expected level of the posterior inferior cerebellarartery. The cervical carotid arteries and the left vertebral artery are normal in caliber. Noevidence of new dissection. CTA head: Flow is not seen in the distal right vertebral artery on thisexam due to suppression of retrograde flow by the 3D dxpn-je-tdnskd technique. The intracranialarteries are otherwise normal in caliber without evidence of large vessel occlusion. Stable 4-5 mmaneurysm arising from the cavernous left internal carotid artery and projecting laterally (series 4,image 68) and stable small inferiorly projecting aneurysms or infundibula from the leftsupraclinoid ICA (series 402, image 4; series 4, images 63-67). IMPRESSION: 1. Stable exam. Occlusion of the right vertebral artery from approximatelyC4-C5 to the skull base. Retrograde flow in the distal intracranial right vertebral artery from thebasilar artery to the level of the posterior inferior cerebellar artery. 2. 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 Stablesmall inferiorly projecting aneurysms or infundibula from the left supraclinoid ICA. Authorizing Provider Result Selma NIELSON MRI PROCEDURES * MR Neck Angiogram without and with IV Contrast (03/29/2023 2:19 PM CDT) Anatomical Region Laterality Modality Neck, Neuroradiology RST [facility] , Neuroradiology ARZ [facility], Neuroradiology FLA [facility] N/A Magnetic Resonance 03/29/2023 2:32 PM CDT Impressions 03/29/2023 2:50 PM CDT 1. Stable exam. 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 Retrograde flow in the distal intracranial right vertebral artery from the basilar artery to the level of the posterior inferior cerebellar artery. 2. 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 Stable small inferiorly projecting aneurysms or infundibula from the left supraclinoid ICA. Narrative 03/29/2023 2:50 PM CDT EXAM: MR NECK ANGIOGRAM WITHOUT AND WITH IV CONTRAST, MR BRAIN ANGIOGRAM WITHOUT IV CONTRAST COMPARISON: CTA head and neck 06/15/2022 FINDINGS: CTA neck: Normal branching pattern from the aortic arch. 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 A small residual right vertebral artery is seen arising from the right subclavian artery and extending superiorly to approximately the C4-C5 level where it contributes to collateral branches. Distally there is a small amount of retrograde flow from the basilar artery to the expected level of the posterior inferior cerebellar artery. The cervical carotid arteries and the left vertebral artery are normal in caliber. No evidence of new dissection. CTA head: Flow is not seen in the distal right vertebral artery on this exam due to suppression of retrograde flow by the 3D pvcf-jt-rhwmbj technique. The intracranial arteries are otherwise normal in caliber without evidence of large vessel occlusion. Stable 4-5 mm aneurysm arising from the cavernous left internal carotid artery and projecting laterally (series 4, image 68) and stable small inferiorly projecting aneurysms or infundibula from the left supraclinoid ICA (series 402, image 4; series 4, images 63-67). Procedure Note Maritza Wynn M.D. - 03/29/2023 EXAM: MR NECK ANGIOGRAM WITHOUT AND WITH IV CONTRAST, MR BRAIN ANGIOGRAMWITHOUT IV CONTRAST COMPARISON: CTA head and neck 06/15/2022 FINDINGS: CTA neck: Normal branching pattern from the aortic arch. History ofembolization of the V2 segment of the right vertebral artery. A small residual right vertebral artery isseen arising from the right subclavian artery and extending superiorly to approximately theC4-C5 level where it contributes to collateral branches. Distally there is a small amount ofretrograde flow from the basilar artery to the expected level of the posterior inferior cerebellarartery. The cervical carotid arteries and the left vertebral artery are normal in caliber. Noevidence of new dissection. CTA head: Flow is not seen in the distal right vertebral artery on thisexam due to suppression of retrograde flow by the 3D yptd-io-livvwc technique. The intracranialarteries are otherwise normal in caliber without evidence of large vessel occlusion. Stable 4-5 mmaneurysm arising from the cavernous left internal carotid artery and projecting laterally (series 4,image 68) and stable small inferiorly projecting aneurysms or infundibula from the leftsupraclinoid ICA (series 402, image 4; series 4, images 63-67). IMPRESSION: 1. Stable exam. Occlusion of the right vertebral artery from approximatelyC4-C5 to the skull base. Retrograde flow in the distal intracranial right vertebral artery from thebasilar artery to the level of the posterior inferior cerebellar artery. 2. 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 Stablesmall inferiorly projecting aneurysms or infundibula from the left supraclinoid ICA. 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
--- OUTSIDE RECORDS SUMMARY | 2023-12-08 13:18 | XMS_ITS | Encounter Summary ---
Author Name Unknown Organization [facility] Address [address] [place] [address] Care Team Providers Care Tipple Mechanic Name Role Phone Elsewhere, Pcp Primary Care Provider Unavailabl e Reason for Referral * Outpatient (Routine) - Closed Specialty Diagnoses / Procedures Referred By Contac t Referred To Contact Diagnoses Pain Knee Right Procedures DX Knee Right 4+ Views Brooklyn Schroeder P.A.-C. [address] [place] [address] [facility] Referral ID Status Reason Start Date Expiration Date Visits Re quested Visits Authorized [id number] Closed 05/04/2023 05/03/2024 1 1 * Outpatient (Routine) - Closed Specialty Diagnoses / Procedures Referred By Contac t Referred To Contact Diagnoses Pain Hip Bilateral Procedures DX Hips and Pelvis Bilateral 5+ Views Brooklyn Schroeder P.A.-C. [address] [place] [phone] [facility] Referral ID Status Reason Start Date Expiration Date Visits Re quested Visits Authorized [id number] Closed 05/04/2023 05/03/2024 1 1 Encounter Details Date Type Department Care Team (Late st Contact Info) Description 05/04/2023 Orders Only Department of Orthopedic Surgery in [place], [place] [address] [place] [address] Brooklyn Schroeder P.A.-C. [address] [place] [address] Pain Hip Bilateral (Primary Dx); Pain Knee Right Social History Tobacco Use Types Packs/Day Years [...] How often do you attend chur or oriental orthodox services? Patient declined 05/17/2022 Do you belong to any clubs o r organizations such as christian groups, unions, fraternal [...] Answer Date Recorded PHQ-2 Score 3 02/11/2021 [facility] Occupat ional [facility] - Occupational Stress Questionnaire Answer Date [...] or slept in a fci (including now)? 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 Longstem right knee arthroplasty with components present in expected position. On the right, there is thickening of the distal femoral cortex seen in the lateral projection, comparison to prior imaging recommended if available to document the chronicity of this finding. No accompanying periprosthetic fracture. Left knee arthroplasty components are present in expected position. No appreciable right knee knee joint effusion. Narrative 05/27/2023 11:25 AM CDT EXAM: DX KNEE RIGHT 4+ VIEWS Procedure Note Clemente Gruber M.D. 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 Longstem right kneearthroplasty with components present in expected position. On the right, there isthickening of the distal femoral cortex seen in the lateral projection, comparison to prior imagingrecommended if available to document the chronicity of this finding. No accompanying periprostheticfracture. Left knee arthroplasty components are present in expected position. No appreciableright knee knee joint effusion. Brooklyn King-Ricky. [facility] IMAGING PROCEDURES * DX Hips and Pelvis Bilateral 5+ Views (05/27/2023 10:35 AM CDT) Anatomical Region Laterality Modality Lower Extremity, Pelvis, Hip , Musculoskeletal RST LOS, Musculoskeletal ARZ LOS, Muskuloskeletal FLA LOS Bilateral Digit al Radiography 05/27/2023 11:2 0 AM CDT Impressions 05/27/2023 11:25 AM CDT No meaningful change, except where noted. Minimal central narrowing of the bilateral hip joints. No fracture or dislocation. Suggestion of chondrocalcinosis at both hip joints. Surgical coils and clips over the left pelvis. Presumed pelvic phleboliths. Degenerative change at the symphysis pubis. Lumbar decompression. Comparison with 06/15/2022; interval removal of stimulator pack of the left. Narrative 05/27/2023 11:25 AM CDT EXAM: DX HIPS AND PELVIS BILATERAL 5+ VIEWS Procedure Note Jey Hansen M.D. - 05/27/2023 EXAM: DX HIPS AND PELVIS BILATERAL 5+ VIEWS IMPRESSION: No meaningful change, except where noted. Minimal central narrowing of thebilateral hip joints. No fracture or dislocation. Suggestion of chondrocalcinosis atboth hip joints. Surgical coils and clips over the left pelvis. Presumed pelvic phleboliths.Degenerative change at the symphysis pubis. Lumbar decompression. Comparison with 06/15/2022; intervalremoval of stimulator pack of the left. Brooklyn Carrillo P.A.-C. [facility]G DIAGNOSTI C IMAGING PROCEDURES documented in this encounter Visit Diagnoses Diagnosis Pain Hip Bilateral- Primary Pain Knee Right Pain Hip Bilateral Pain Knee Right documented in this encounter Additional Health Concerns Assessment Noted Time PHQ-9 Depression Total Score: 16 021 12:00 AM CDT documented as of this encounter Care Teams Tipple Mechanic Relationship Specialty Start Date End Date Elsewhere, Pcp PCP - General Family Medicine 12/25/21 documented as of this encounter
--- OUTSIDE RECORDS SUMMARY | 2023-12-08 13:18 | XMS_ITS | Encounter Summary ---
Author Name Unknown Organization [facility] Address [address] [place] [address] Care Team Providers Care Manager Banquet Name Role Phone Elsewhere, Pcp Primary Care Provider Unavailabl e Reason for Visit * Reason Onset Date Comments Headache 03/01/2023 [place] Encounter Details Date Type Department Care Team (Latest Contact Info) Description 03/01/2023 Clinical Communication Department of Neurology in [place], [place] [address] [place] [phone] Robert Diehl M.D. [address] [place] [phone] Headache ([facility]) Social History Tobacco Use Types Packs/Day Years [...] How often do you attend chur or faith services? Patient declined 05/17/2022 Do you belong to any clubs o r organizations such as jew groups, unions, fraternal [...] Answer Date Recorded PHQ-2 Score 3 02/11/2021 [facility] Occupat ional Health - Occupational [...] or slept in a longterm (including now)? No 05/17/2022 Depression Answer Date [...] documented as of this encounter Miscellaneous Notes * Telephone Encounter - Asad Friend RBrittonN. - 03/01/2023 1:28 PM CDT Information Discussed I contacted Angie back regarding her new concerns with increased pain/headache since yesterday. Angie shares that yesterday she turned her head sharply and experienced sharp pain in the back of her head that was more intense than the chronic headaches she had been having over the last few months. She further shares that she was here yesterday for a scheduled MRA Brain/Neck but her spinal cord stimulator pack was not fully charged so the MRA could not safely be done without knowing if the stimulator could be turned fully off. Her MRA has now been rescheduled to 03/29/23 but Angie feels she shouldn't wait that long, especially now with her increased pain. I encouraged Angie that she should be evaluated at her local Emergency Department as soon as possible. She relayed that she was not sure she could come to [place] ED today with the weather but wasagreeable to be evaluated in [place] and the providers could at least assess her symptoms, provide any imaging necessary and then discuss if she needed a different level of care or [facility]. Angie also inquired if her MRA for 03/29 could be completed in [place]. I shared that I would ask our scheduling office to assist if this is possible. PLAN Disposition/Recommendation: recommended to report to the nearest emergency department Information/Education: patient/caller able to teach back Caller agreeable to plan of care: yes The following references were used: nursing clinical judgement documented in this encounter Plan of Treatment Not on file documented as of this encounter Visit Diagnoses Not on filedocumented in this encounter Additional Health Concerns Assessment Noted Time PHQ-9 Depression Total Score: 16 021 12:00 AM CDT documented as of this encounter Care Teams Manager Banquet Relationship Specialty Start Date End Date Elsewhere, Pcp PCP - General Family Medicine 12/25/21 documented as of this encounter
--- OUTSIDE RECORDS SUMMARY | 2023-12-08 13:18 | XMS_ITS | Encounter Summary ---
Author Name Unknown Organization [facility] Address [address] [place] [address] Care Team Providers Care Telecommunications Professional Name Role Phone Elsewhere, Pcp Primary Care Provider Unavailabl e Reason for Visit * Reason Onset Date Comments Results 03/31/2023 [place] Encounter Details Date Type Department Care Team (Latest Contact Info) Description 03/31/2023 Clinical Communication Department of Neurology in [place], [place] [address] [place] [phone] Robert Diehl M.D. [address] [place] [phone] Results ([facility]) Social History Tobacco Use Types Packs/Day Years [...] How often do you attend chur or temple services? Patient declined 05/17/2022 Do you belong to any clubs o r organizations such as nondenominational groups, unions, fraternal [...] Answer Date Recorded PHQ-2 Score 3 02/11/2021 [facility] Occupat ional Health - Occupational [...] or slept in a correction (including now)? No 05/17/2022 Depression Answer Date [...] Notes * Telephone Encounter - Asad Friend R.N. - 03/31/2023 1:15 PM CDT Information Discussed I contacted Angie to relay Dr. Diehl's recommendations regarding her recent imaging. Dr. Diehl shares the following: All vascular imaging is stable if you would be so kind as to relay a normal study results to her. Angie appreciated the information and will keep her follow up video visit appointment for 04/26. PLAN Disposition/Recommendation: self-care is appropriate at this time, patient encouraged to call back with questions Information/Education: patient/caller able to teach back Caller agreeable to plan of care: yes The following references were used: nursing clinical judgement and provider Dr. Argenis Diehl. documented in this encounter Plan of Treatment Not on file documented as of this encounter Visit Diagnoses Not on filedocumented in this encounter Additional Health Concerns Assessment Noted Time PHQ-9 Depression Total Score: 16 021 12:00 AM CDT documented as of this encounter Care Teams Telecommunications Professional Relationship Specialty Start Date End Date Elsewhere, Pcp PCP - General Family Medicine 12/25/21 documented as of this encounter
--- OUTSIDE RECORDS SUMMARY | 2023-12-08 13:18 | XMS_ITS | Encounter Summary ---
Author Name Unknown Organization [facility] Address [address] [place] [address] Care Team Providers Care Arcade Attendant Name Role Phone Elsewhere, Pcp Primary Care Provider Unavailabl e Reason for Referral * Outpatient (Routine) - Closed Specialty Diagnoses / Procedures Referred By Contac t Referred To Contact Diagnoses Pain Knee Right Procedures DX Knee Right 4+ Views Brooklyn Schroeder P.A.-C. [address] [place] [phone] [facility] Referral ID Status Reason Start Date Expiration Date Visits Re quested Visits Authorized [id number] Closed 05/04/2023 05/03/2024 1 1 * Outpatient (Routine) - Closed Specialty Diagnoses / Procedures Referred By Contac t Referred To Contact Diagnoses Pain Hip Bilateral Procedures DX Hips and Pelvis Bilateral 5+ Views Brooklyn Schroeder P.A.-C. [address] [place] [phone] [facility] Referral ID Status Reason Start Date Expiration Date Visits Re quested Visits Authorized [id number] Closed 05/04/2023 05/03/2024 1 1 Reason for Visit * Outpatient (Routine) - Closed Specialty Diagnoses / Procedures Referred By Tanja baca Referred To Contact Diagnoses Pain Hip Bilateral Procedures DX Hips and Pelvis Bilateral 5+ Views Brooklyn Schroeder P.A.-C. 200 [place] [address] [facility] Referral ID Status Reason Start Date Expiration Date Visits Re quested Visits Authorized [id number] Closed 05/04/2023 05/03/2024 1 1 Encounter Details Date Type Department Care Team (Latest Contact Info) Description 05/27/2023 10:06 AM CDT - 05/27/2023 11:59 PM CDT Hospital Encounter Department of Radiology in [place] [address] [place] [address] Brooklyn Schroeder P.A.-C. 200 [place] [phone] Pain Hip Bilateral; Pain Knee Right Discharge Disposition: Home or Self Care Social [...] often do you attend chur ch or sabianism services? Patient declined 05/17/2022 Do you belong to any clubs o r organizations such as cheondoism groups, unions, fraternal [...] Answer Date Recorded PHQ-2 Score 3 02/11/2021 [facility] - Occupational Stress [...] or slept in a mcfp (including now)? No 05/17/2022 Depression Answer Date [...] as needed. 5 mg THC 0 multivit-min/iron/folic /[id number] (HAIR, SKIN AND NAILS ADVANCED ORAL) Take [...] Name Priority Date/Time Associated Diagnosis Comments DX KNEE RIGHT 4+ VIEWS RAD - Routine (most inpatients and all outpatients) 05/27/2023 10:37 AM CDT Pain Knee Right DX HIPS AND PELVIS BILATERAL MINIMUM 5 VIEWS RAD - Routine (most inpatients and all outpatients) 05/27/2023 10:35 AM CDT Pain Hip Bilateral documented in this encounter Results * DX Knee Right [...] No appreciableright knee knee joint effusion. Brooklyn Carrillo P.A.-C. [facility]ED[facility] * DX Hips [...] this encounter Visit Diagnoses Diagnosis Pain Hip Bilateral Pain Knee Right documented in this encounter Additional Health Concerns Assessment Noted Time PHQ-9 Depression Total Score: 16 021 12:00 AM CDT documented as of this encounter Care Teams Arcade Attendant Relationship Specialty Start Date End Date Elsewhere, Pcp PCP - General Family Medicine 12/25/21 documented as of this encounter
--- OUTSIDE RECORDS SUMMARY | 2023-12-08 13:19 | XMS_ITS ---
Author Name Unknown Organization [facility] Address [address] [place] [address] Care Team Providers Care Staffing Analyst Name Role Phone Elsewhere, Pcp Primary Care Provider Unavailabl e Bariatrics Program Status:Enrolled (Active) Start date:08/22/2007 Enrollment date:08/22/2007 Current support & services provided:Pre-Op Related social determinants of health:Food Insecurity, Transportation Needs Continued Care and Services Coordination
--- OUTSIDE RECORDS SUMMARY | 2023-12-08 13:19 | XMS_ITS | Continuity of Care Document ---
Author Name Unknown Organization [facility] Address [address] [place] [address] Phone Care Team Providers Care Cosmetics Presser Name Role Phone Su Dang OD Unavailable Unavailab le Allergies, Adverse Reactions, Alerts Substance Reaction Status Criticality acyclovir Unknown Active No Information amoxicillin Unknown Active No Information cefaclor Unknown Active No Information Medications Medication Instructions Dosage Effective Dates (start - stop) Status Comments Estraderm 0.1 mg/24 hr Transderm Patch - Active Prozac 40 mg Cap - Active Jacy 180 mg Tab 1 by mouth daily - Acti ve Singulair 10 mg Tab 1 by mouth daily - Act lalo Estradiol 0.1 mg/24 hr Weekly Transderm Patch - Active Pepcid AC 10 mg Tab - Active Amitriptyline 50 mg Tab 1 by mouth daily - Active Advance Directives Directive Yes / No Effective Date File Name No Information Encounters Encounter Description Practice Location Reason(s) For Visit Diagnoses Date Provider Providers Copied on Encounter [facility], [address] [place] [address], [id number], tel:[phone] [facility] No Information [facility]. [address], [place], [id number], . tel:[phone] Referring Provider: Su Dang, [address] [place], [address] . tel:[phone] [facility], [address] [place], [id number], tel:[phone] [facility] [place] Blurred Vision (chief complaint) No Information No [...]
--- OUTSIDE RECORDS SUMMARY | 2023-12-08 13:19 | XMS_ITS | Encounter Summary ---
Author Name Unknown Organization [facility] Address [address] [place] [address] Care Team Providers Care Core Analyst Name Role Phone Elsewhere, Pcp Primary Care Provider Unavailabl e Reason for Referral * Outpatient (Routine) - Closed Specialty Diagnoses / Procedures Referred By Tanja baca Referred To Contact Otorhinolaryngology Diagnoses Sinus Nose Disorder Sinusitis Chronic Chris Mckeon M.D. [address] [place] [address] [facility] Referral ID Status Reason Start Date Expiration Date Visits Re quested Visits Authorized [id number] Closed 01/10/2019 01/10/2020 1 1 HT RESERVATIONS MANAGER Encounter Details Date Type Department Care Team (Late st Contact Info) Description 01/10/2019 [facility] [address] [place] [address] Chris Mckeon M.D. [address] [place] [address] Sinus Nose Disorder (Primary Dx); Sinusitis Chronic Social History Tobacco Use Types Packs/Day Years Used Date Smoking Tobacco: Every Day Sex and Gender Information Value Date Recorded Sex Assigned at Female 03/01/2019 10:12 AM CDT Gender Identity Female 03/01/2019 10:12 AM CDT Sexual Orientation Straight 03/01/2019 10 :12 AM CDT documented as of this encounter Plan of Treatment Scheduled Referrals Name Type Priority Associated Diagnoses Order Schedule Otolaryngology Referral Outpatient Referral Routine Sinus Nose Disorder Sinusitis Chronic Expected: 01/10/2019 (Approximate), Expires: 01/10/2022 documented as of this encounter Visit Diagnoses Diagnosis Sinus Nose Disorder- Primary Sinusitis Chronic documented in this encounter Additional Health Concerns Infection Onset Date Last Indicated Resolved Time COVID19 Pending 01/31/2021 01/31/2021 01/31/2021 1 0:53 PM FLIGHT RESERVATIONS MANAGER COVID19 Pending 02/10/2021 02/11/2021 02/11/2021 1 :09 AM CDT COVID19 Pending 12/29/2021 12/29/2021 12/29/2021 4 :20 PM FLIGHT RESERVATIONS MANAGER COVID19 Pending 02/25/2022 02/25/2022 02/25/2022 3 :59 PM CDT COVID19 Pending 05/17/2022 05/17/2022 05/17/2022 2 :34 PM CDT COVID19 Pending 06/15/2022 06/15/2022 06/15/2022 8 :24 PM CDT documented as of this encounter Care Teams Core Analyst Relationship Specialty Start Date End Date Elsewhere, Pcp PCP - General Family Medicine 12/25/21 documented as of this encounter
--- OUTSIDE RECORDS SUMMARY | 2023-12-08 13:20 | XMS_ITS | Encounter Summary ---
Author Name Unknown Organization [facility] Address [address] [place] [address] Care Team Providers Care Adobe Architect Name Role Phone Jose Holden MD Primary Care Provider Reason for Visit * Reason Comments Refill Encounter Details Date Type Department Care Team Description 01/10/2023 Refill [facility] [address] [place] [address] Donald Medley MD [address] [facility] [address] [place] [address] Refill Social History Tobacco Use Types Packs/Day Years Used Date Smoking Tobacco: Every Day Cigarettes 0.5 30 Smokeless Tobacco: Never Comments:30 year smoker on a nd off, 0.5 a day Alcohol Use Standard Drinks/Week Comments No 0 (1 standard drink = 0.6 oz pur e alcohol) Sex and Gender Information Value Date Recorded Sex Assigned at Not on file Gender Identity Not on file Sexual Orientation Not on file documented as of this encounter Nursing Notes * Paulina Mcdaniels RN - 01/10/2023 2:59 PM CST Images from the original note were not included. Copied from [facility] TAXI OPERATOR on 01/10/23: Requested Prescriptions Pending Prescriptions Disp Refills HYDROmorphone (DILAUDID) 2 MG tablet 15 Tablet 0 Sig: Take 1 Tablet (2 mg) by mouth every 8 hours as needed for Pain (FOR SEVERE BREAKTHOUGH PAIN ONLY). LAST REFILL. Max of 2 tabs/24 hours. R * Kaykay Adams RN - 01/10/2023 2:51 PM CST Action: Refill Request Next Step: Review associated dx/order for accuracy and sign pended orders, if appropriate DOS/Procedure or Last OV: 11/17/22 Right TKA revision Last filled quantity and date: 12/31 #20 tabs Quantity amount remaining: no tabs remaining Pharmacy preference verified, medication pended. Requested Prescriptions Pending Prescriptions Disp Refills HYDROmorphone (DILAUDID) 4 MG tablet 0 Sig: Take 1 Tablet (4 mg) by mouth every 6 hours as needed for Pain. Must start tapering off of this medication for acute post-op pain. Max of 4 tabs/24 hours. Future Appointments Date Time Provider Department Center 01/14/2023 11:45 AM Donald Medley MD [facility] R * Gayatri Faulkner - 01/10/2023 2:38 PM CST Has the patient recently had surgery or an injury? Yes. Date of Surgery: November 17, 2022 Type of Surgery: R TKA revision Ortho Refill Questionnaire Has orthopaedics previously prescribed this medication? Yes Patient was notified that they will receive a follow-up call from care team and that the refill request will be reviewed within 24-48 hours. Requested Prescriptions Dilaudid Last filled detail: Patient states currently takin/2-1 tabs every 3 hrs Is the patient taking anything else for pain including over the counter medications? Tylenol tabs Pharmacy (if applicable): [facility] [address] [id number] Comments: PT ran out a couple days ago R documented in this encounter Plan of Treatment Not on file documented as of this encounter Visit Diagnoses Diagnosis Acute postoperative pain Other acute postoperative pain Status post revision of total replacement of right knee documented in this encounter Care Teams Adobe Architect Relationship Specialty Start Date End Date Jose Holden MD [address] [place] [address] PCP - General Otolaryngology 12/14/17 documented as of this encounter
--- OUTSIDE RECORDS SUMMARY | 2023-12-08 13:20 | XMS_ITS | Encounter Summary ---
Author Name Unknown Organization [facility] Address [address] [place] [address] Care Team Providers Care Cinder Dump Crane Operator Name Role Phone Jose Holden MD Primary Care Provider Reason for Visit * Reason Comments Refill Encounter Details Date Type Department Care Team Description 12/24/2022 Refill [facility] [address] [place] [address] Donald Medley MD [address] [facility] [address] [place] [address] Refill Social History Tobacco Use [...] Nursing Notes * Paulina Mcdaniels RN - 12/24/2022 9:35 AM CST Images from the original note were not included. Action: Refill Request Next Step: Review associated dx/order for accuracy and sign pended orders, if appropriate DOS/Procedure or Last OV: 11/17/22 revision right TKA Clinic appointment on 12/21/22 Last filled quantity and date: #30 tabs prescribed as 1 tab Q3H PRN pain Quantity amount remainin tabs Pharmacy preference verified, medication pended. Requested Prescriptions Pending Prescriptions Disp Refills HYDROmorphone (DILAUDID) 4 MG tablet 30 Tablet 0 Sig: Take 1 Tablet (4 mg) by mouth every 4 hours as needed for Pain. Must start tapering off of this medication for acute post-op pain. Max of 6 tabs/24 hours. Future Appointments Date Time Provider Department Center 12/31/2022 11:00 AM Donald Medley MD [facility] Copied from [facility] 12/24/22: PMENT TECH * Gayatri Faulkner - 12/24/2022 8:43 AM CST Has the patient recently had surgery or an injury? Yes. Date of Surgery: November 17, 2023 Type of Surgery: dos 11/17/22 Right TKA revision Ortho Refill Questionnaire Has orthopaedics previously prescribed this medication? Yes Patient was notified that they will receive a follow-up call from care team and that the refill request will be reviewed within 24-48 hours. Requested Prescriptions Dilaudid Last filled detail: 12/20/22 Patient states currently takin-2 tabs q.4.h. Is the patient taking anything else for pain including over the counter medications? Tylenol tabs Pharmacy (if applicable): [address] [address] Comments: Pt has 2-3 tabs left PMENT TECH documented in this encounter Plan of Treatment Not on file documented as of this encounter Visit Diagnoses Diagnosis Acute postoperative pain- Primary Other acute postoperative pain Status post right knee replacement Status post revision of total replacement of right knee documented in this encounter Care Teams Cinder Dump Crane Operator Relationship Specialty Start Date End Date Jose Holden MD [address] [place] [address] PCP - General Otolaryngology 12/14/17 documented as of this encounter
--- OUTSIDE RECORDS SUMMARY | 2023-12-08 13:20 | XMS_ITS | Encounter Summary ---
Author Name Unknown Organization [facility] Address [address] [address] Care Team Providers Care Mink Rancher Name Role Phone Jose Holden MD Primary Care Provider Encounter Details Date Type Department Care Team Description 12/21/2022 2:50 PM SENIOR NET APPLICATION DEVELOPER Lab Visit [facility] [address] [facility] [place] [address] Status post right knee replacement; Pain due to total right knee replacement, initial encounter (HRC) Social History Tobacco Use Types Packs/Day Years [...] Procedure Name Priority Date/Time Associated Diagnosis Comments CBC AND DIFFERENTIAL PANEL Routine 12/21/2022 3:01 PM SENIOR NET APPLICATION DEVELOPER Status post right knee replacement Pain due to total right knee replacement, initial encounter (HRC) COMPLETE BLOOD COUNT-W/DIFF Routine 12/21/2022 3:01 PM SENIOR NET APPLICATION DEVELOPER Status post right knee replacement Pain due to total right knee replacement, initial encounter (HRC) C-REACTIVE PROTEIN Routine 12/21/2022 3: 01 PM SENIOR NET APPLICATION DEVELOPER Status post right knee replacement Pain due to total right knee replacement, initial encounter (HRC) documented in this encounter Results * (ABNORMAL) Complete Blood Count-W/Diff (12/21/2022 3:01 PM [facility] WBC 5.0 3.5 - 10.5 x10(9)/L 12/21/2022 3:11 PM [facility] RBC 3.98 3.90 - 5.03 x10(12)/L 12/21/2022 3:11 PM [facility] Hemoglobin 11.7(L) 12.0 - 15.5 g/dL 12/21/2022 3:11 PM [facility] HCT 35.2 34.9 - 44.5 % 12/21/2022 3:11 PM [facility] MCV 88.4 80.0 - 100.0 fL 12/21/2022 3:11 PM [facility] MCH 29.4 27.6 - 33.3 pg 12/21/2022 3:11 PM [facility] MCHC 33.2 31.5 - 35.2 g/dL 12/21/2022 3:11 PM [facility] RDW 15.1 11.9 - 15.5 % 12/21/2022 3:11 PM [facility] Platelets 367 150 - 450 x10(9)/L 12/21/2022 3:11 PM [facility] Neutrophil Absolute 2.1 1.7 - 7.0 10(9)/L 12/21/2022 3:11 PM [facility] Lymphocyte Absolute 2.4 1.0 - 4.8 10(9)/L 12/21/2022 3:11 PM [facility] Monocyte Absolute 0.4 0.2 - 0.9 10(9)/L 12/21/2022 3:11 PM [facility] Eosinophil Absolute 0.2 0.0 - 0.5 10(9)/L 12/21/2022 3:11 PM [facility] Basophil Absolute 0.0 0.0 - 0.3 10(9)/L 12/21/2022 3:11 PM [facility] Immature Granulocyte % 0.2 0.0 - 0.5 % 12/21/2022 3:11 PM [facility] Blood Venipuncture / Unknown 12/21/2022 3:01 PM SENIOR NET APPLICATION DEVELOPER 12/21/2022 3:01 PM SENIOR NET APPLICATION DEVELOPER Donald Medley MD LAB_1 [facility] [address] [place] [address], [facility] [phone] * C-Reactive Protein (12/21/2022 3:01 PM SENIOR NET APPLICATION DEVELOPER) C-Reactive Protein <0.5 0.0 - 0.7 mg/dL 12/21/2022 6:46 PM SENIOR NET APPLICATION DEVELOPER [facility] Blood Venipuncture / Unknown 12/21/2022 3:01 PM SENIOR NET APPLICATION DEVELOPER 12/21/2022 3:01 PM SENIOR NET APPLICATION DEVELOPER Donald Medley MD LAB_1 Performing Organization Address [facility]/ZIP Co de Phone Number [facility] [address] [place] [address], [facility] [phone] documented in this encounter Visit Diagnoses Diagnosis Status post right knee replacement Pain due to total right knee replacement, initial encounter (HRC) documented in this encounter Care Teams Mink Rancher Relationship Specialty Start Date End Date Jose Holden MD [address] [place] [address] PCP - General Otolaryngology 12/14/17 documented as of this encounter
--- OUTSIDE RECORDS SUMMARY | 2023-12-08 13:20 | XMS_ITS | Continuity of Care Document ---
Author Name Unknown Organization [facility] Address [address] [place] [address] Phone Care Team Providers Care Jewel Oliving Machine Operator Name Role Phone ZProvider, Conversion Unavailable Unavailabl [...] Rheumatolo gy, [address], [place], [place], [id number], [place] tel:[phone] [facility] No Information 4 ZProvider Conversion . . [facility], [address], [place], [place], [id number], [place] tel:[phone] [facility] OBESITY NOSTOBACCO USE DISORDEROSTEOPOROSI S NOS 4 Michele Nara. [address], [address], [place], [place], [id number], [place]. tel:[phone] [facility], [address], [place], [place], [id number], [place] tel:[phone] [facility] Age-related osteoporosis w/o current pathological fracture 4 ZProvider Conversion . . [facility], [address], [place], [place], [id number], [place] tel:[phone] [facility] [place] MALAISE AND FATIGUE NECOBESITY NOSOSTEOPOROSIS NOSTOBACCO USE DISORDER 4 ZProvider Conversion . . [facility], [address], [place], [place], [id number], [place] tel:[phone] [facility] [place] Tobacco useObesity, unspecifiedAge-rela mary osteoporosis w/o current pathological fracture 4 Michele Nara. [address], [address], [place], [place], [id number], [place]. tel:[phone] Family History Family Member Type Diagnosis Age [...]
--- OUTSIDE RECORDS SUMMARY | 2023-12-08 13:20 | XMS_ITS | Encounter Summary ---
Author Name Unknown Organization [facility] Address [address] [place] [address] Care Team Providers Care Tag Meter Operator Name Role Phone Jose Holden MD Primary Care Provider Reason for Visit * Reason Comments Refill Encounter Details Date Type Department Care Team Description 01/26/2023 Telephone [facility] [address] [place] [address] Donald Medley MD [address] [facility] [address] [place] [address] Refill Social History Tobacco Use [...] as of this encounter Nursing Notes * Ivania Arvizu OA - 01/27/2023 9:33 AM CST Brace information is documented in a separate encountered dated 01/19/2023. PENDENT CONSULTANT * Kaykay Adams RN - 01/26/2023 12:18 PM CST Pt is asking for the status of brace order. Ship Pilot Dispatcher will send a message to the [facility]. Also let pt know according to 's last OV note from 01/14, that we are no longer prescribing any narcotics and she will need to follow up with her pain clinic, for ongoing, chronic pain management. Pt verbalized understanding. PENDENT CONSULTANT * Dia Amador - 01/26/2023 12:01 PM CST Has the patient recently had surgery or an injury? Yes. Date of Surgery: November 17, 2022 Type of Surgery: REVISION RIGHT TOTAL KNEE ARTHROPLASTY Ortho Refill Questionnaire Has orthopaedics previously prescribed this medication? Yes Patient was notified that they will receive a follow-up call from care team and that the refill request will be reviewed within 24-48 hours. Requested Prescriptions No prescriptions requested or ordered in this encounter Last filled detail: norco Patient states currently takin tabs 3x a day Is the patient taking anything else for pain including over the counter medications? None Pharmacy (if applicable): [facility] [address] [address] Comments: Pt requesting refill of rx, as she has been needing it since starting therapy. Please advise. Pt has questions regarding brace as well, please advise. PENDENT CONSULTANT documented in this encounter Plan of Treatment Not on file documented as of this encounter Visit Diagnoses Not on filedocumented in this encounter Care Teams Tag Meter Operator Relationship Specialty Start Date End Date Jose Holden MD [address] [place] [address] PCP - General Otolaryngology 12/14/17 documented as of this encounter
--- OUTSIDE RECORDS SUMMARY | 2023-12-08 13:20 | XMS_ITS | Continuity of Care Document ---
Author Name Unknown Organization [facility] Address [address] [place] [address] Phone Care Team Providers Care Service Cleaner Name Role Phone Ezequiel Christensen MD Unavailable [...] [facility], [address], [place], [id number], [place] tel:[phone] [facility] [place] No Information [facility], [address] [place] [address], [address], [place], [place], [id number] , [place]. [phone] Office/Outpat ient Visit,Est, Mod [facility], [address], [facility] [place], [id number], [place] tel:[phone] [facility] Spinal stenosis, lumbar region [facility], [address] [place] [address], [address], [place], [place], [id number] , [place]. [phone] Referring Provider: Amna Fletcher, [address], [address]. tel:[phone] Office/Outpat ient Visit,New, Mod [facility], [address], [facility] [place], [id number], [place] tel:[phone] [facility] Spinal stenosis, lumbar regionLow back painCervicalgia 7 [facility], [address] [place] [address], [address], [place], [place], [id number] , [place]. tel:[phone] Referring Provider: Amna Fletcher [address], [address]. tel:[phone] Family History Family Member Type Diagnosis Age At Onset No Information Payers Payer name Insurance type Covered republican ID Chester aguillon(s) Medicare [place] [id number] Social History Type Description Quantity Date Captured [...]
--- OUTSIDE RECORDS SUMMARY | 2023-12-08 13:20 | XMS_ITS | Encounter Summary ---
Author Name Unknown Organization [facility] Address [address] [address] Care Team Providers Care Diploma Pharmacy Technician Name Role Phone Jose Holden MD Primary Care Provider Reason for Visit * Reason Comments RESULTS, TEST Encounter Details Date Type Department Care Team Description 12/22/2022 Telephone [place] 1601 Orthopedics 1601 [facility]. [place], [place] [address] Donald Medley MD [address] [facility] [address] [place] [address] RESULTS, TEST Social History Tobacco Use Types Packs/Day Years [...] as of this encounter Nursing Notes * Donald Medley MD - 12/24/2022 11:59 AM CST Spoke with the patient OWS TESTER * Gayatir Faulkner - 12/24/2022 8:42 AM CST Patient hasn't heard back about her lab results and will wait for a call today. OWS TESTER * Lin Flaherty - 12/22/2022 2:09 PM CST Has the patient recently had surgery or an injury? Yes. Date of Surgery: November 17, 2022 Type of Surgery: Revision Right Total Knee Arthroplasty by Dr. Donald Medley What test are you calling about: Labs Who ordered it: Dr. Donald Medley Where was the test done: [facility] When did you have it done: 12/21/2022 If a prescription is needed, would you like it filled at our [facility] pharmacy? [Economics Lecturer/Appt Center: Was the pharmacy entered into the Preferred Pharmacy field? N/A] Is it okay to leave detailed message on your voicemail? Yes [Economics Lecturer/Appt Center: If this call is after 3 p.m., communicate to patient: If we are not able to get back to you by the end of the day and your symptoms worsen please contact the Careline] [Economics Lecturer: Inform patient that if they are active with online patient services they can receive their results online (only available for 12 years and younger and 18 years and older)] OWS TESTER documented in this encounter Plan of Treatment Not on file documented as of this encounter Visit Diagnoses Not on filedocumented in this encounter Care Teams Diploma Pharmacy Technician Relationship Specialty Start Date End Date Jose Holden MD [address] [place] [address] PCP - General Otolaryngology 12/14/17 documented as of this encounter
--- OUTSIDE RECORDS SUMMARY | 2023-12-08 13:20 | XMS_ITS | Encounter Summary ---
Author Name Unknown Organization [facility] Address [address] [place] [address] Care Team Providers Care Maintenance And Repair Worker Name Role Phone Jose Holden MD Primary Care Provider Reason for Visit * Reason Comments Refill Encounter Details Date Type Department Care Team Description 12/31/2022 Refill [facility] [address] [place] [address] Donald Medley MD 1601 [facility] [address] [place] [address] Refill Social History Tobacco Use [...] as of this encounter Nursing Notes * Clifford Woods MD - 12/31/2022 5:20 PM CST Reached out to Dr. Medley, but he was not available. Will refill based on previous notes, and taperper previously discussed plans. Clifford Woods MD 12/31/2022, 5:19 PM INE SETTER AUTOMATIC * Tejal Norman RN - 12/31/2022 3:51 PM CST Action: Refill Next Step: Review associated dx/order for accuracy and sign pended orders, if appropriate DOS/Procedure or Last OV: 11/17/22 Right TKA revision Last filled quantity and date: 12/16/22 #30 1-2 tablets q3h prn. 12/21/22 #30 1 tablet q3h prn 12/24/22 #30 1 tablet q4h prn. Max 6 tablets per day. Mold Engraver updated SIG to reflect taper: 1 tablet q6h prn. Routing to oncall. Last OV plan Plan 12/21/22: Continue working with physical therapy. She had reported that the knee feels unsteady or wants to buckle on her. On physical exam it is stable to varus and valgus stress. I think her biggest issue at this point is insufficient rehab as far as quad strengthening. I stressed her the her the importance of working diligently with her physical therapy. I also again outlinedwith her that with the amount of narcotic pain medications that she takes chronically pain control after surgical procedure is going to be exceedingly difficult. We are a month out from the surgery and I think we need to begin talking about weaning her off the acute postoperative pain medications over the next 2-3 weeks. Pharmacy preference verified, medication pended. Requested Prescriptions Pending Prescriptions Disp Refills HYDROmorphone (DILAUDID) 4 MG tablet 0 Sig: Take 1 Tablet (4 mg) by mouth every 6 hours as needed for Pain. Must start tapering off of this medication for acute post-op pain. Max of 6 tabs/24 hours. Future Appointments Date Time Provider Department Center 01/14/2023 11:45 AM Donald Medley MD [facility] INE SETTER AUTOMATIC * Alisa Alejandre - 12/31/2022 3:00 PM CST Has the patient recently had surgery or an injury? dos 11/17/22 Right TKA revision Ortho Refill Questionnaire Has orthopaedics previously prescribed this medication? Yes Patient was notified that they will receive a follow-up call from care team and that the refill request will be reviewed within 24-48 hours. Requested Prescriptions No prescriptions requested or ordered in this encounter Last filled detail: 12/24/22 Patient states currently taking: Hydromorphone 1 tabs q.4.h. Is the patient taking anything else for pain including over the counter medications? Na Pharmacy (if applicable): [facility] confirmed. [place], [place] - [address] [facility] [address] [facility] [address] Comments: Pt would like call back when sent in. Please advise. INE SETTER AUTOMATIC documented in this encounter Plan of Treatment Not on file documented as of this encounter Visit Diagnoses Diagnosis Acute postoperative pain Other acute postoperative pain Status post revision of total replacement of right knee documented in this encounter Care Teams Maintenance And Repair Worker Relationship Specialty Start Date End Date Jose Holden MD [address] [place] [address] PCP - General Otolaryngology 12/14/17 documented as of this encounter
--- OUTSIDE RECORDS SUMMARY | 2023-12-08 13:20 | XMS_ITS | Encounter Summary ---
Author Name Unknown Organization [facility] Address [address] [place] [address] Care Team Providers Care Telecommunicator Supervisor Name Role Phone Jose Holden MD Primary Care Provider Reason for Visit * Reason Comments Refill Encounter Details Date Type Department Care Team Description 08/09/2023 Refill [facility] [address] [place] [address] Donald Medley MD [address] [facility] [address] [place] [address] Refill Social History Tobacco Use [...] as of this encounter Visit Diagnoses Diagnosis Status post revision of total replacement of right knee documented in this encounter Care Teams Telecommunicator Supervisor Relationship Specialty Start Date End Date Jose Holden MD [address] [place] [address] PCP - General Otolaryngology 12/14/17 documented as of this encounter
--- OUTSIDE RECORDS SUMMARY | 2023-12-08 13:20 | XMS_ITS | Encounter Summary ---
Author Name Unknown Organization [facility] Address [address] [place] [address] Care Team Providers Care Editorial Intern Name Role Phone Jose Holden MD Primary Care Provider Reason for Visit * Reason Comments Refill [facility]CO Encounter Details Date Type Department Care Team Description 01/19/2023 Telephone [facility] [address] [place] [address] Donald Medley MD [address] [facility] [address] [place] [address] Refill ( NORCO) Social History Tobacco Use Types Packs/Day Years [...] as of this encounter Nursing Notes * Celeste Jaimes - 01/19/2023 3:00 PM CST Pt calling for an update / stated that pharmacy has not received their refill / please advise ESTATE REP * Kaykay Gerardo RN - 01/19/2023 9:59 AM CST Action: Refill Request Next Step: Review associated dx/order for accuracy and sign pended orders, if appropriate DOS/Procedure or Last OV: 11/17/22 Right TKA Revision Last filled quantity and date: 30 Tablet of [place] filled last on 01/14/23 Pharmacy preference verified, medication pended. Requested Prescriptions No prescriptions requested or ordered in this encounter No future appointments. ESTATE REP * Chyna Pascual - 01/19/2023 9:25 AM CST Has the patient recently had surgery or an injury? Yes. Date of Surgery: November 17, 2022 Type of Surgery: Right TKA revision Ortho Refill Questionnaire Has orthopaedics previously prescribed this medication? Yes Patient was notified that they will receive a follow-up call from care team and that the refill request will be reviewed within 24-48 hours. Requested Prescriptions No prescriptions requested or ordered in this encounter Last filled detail: 01/14/23 Patient states currently takin -2 tabs q.8.h Is the patient taking anything else for pain including over the counter medications? None Pharmacy (if applicable): [facility] [address] [address] Comments: Pt. stated that her therapist fax paper work for brace. She would like an order for the brace and new order for PT. Please call to advise. ESTATE REP documented in this encounter Plan of Treatment Not on file documented as of this encounter Visit Diagnoses Diagnosis S/P revision of total knee, left- Primary S/P revision of total knee, right documented in this encounter Care Teams Editorial Intern Relationship Specialty Start Date End Date Jose Holden MD [address] [place] [address] PCP - General Otolaryngology 12/14/17 documented as of this encounter
--- OUTSIDE RECORDS SUMMARY | 2023-12-08 13:20 | XMS_ITS | Encounter Summary ---
Author Name [facility] Address [address] [place] [address] Care Team Providers Care Assembler Product Name Role Phone Jose Holden MD Primary Care Provider Reason for Visit * Reason Comments Post-Op Check Left TKA revision Encounter Details Date Type Department Care Team Description 01/14/2023 11:45 AM PLANT HR MANAGER Office Visit [facility] [address] [place] [address] Donald Medley MD [address] [address] Postop check (Primary Dx) Social History Tobacco Use Types [...] as of this encounter Progress Notes * Donald Medley MD - 01/14/2023 11:45 AM CST Chief Complaint: Postop visit for revision right total knee arthroplasty. History: Date of surgery is 11/17/2022. Patient returns for postop follow-up. She indicates she is still having considerable pain with her right knee. She is working with physical therapy. Meds, PMHx, PSHx, and allergies - see EMR. ROS: Musculoskeletal ROS is significant for right knee issues outlined above. Exam: Awake and alert. Fully oriented. Surgical incision is well healed. Alignment to the knee appears satisfactory knee is stable to varus and valgus stress. Range motion is satisfactory. CMS intact. Skin intact. Imaging: No new imaging Assessment: Stable postop exam Plan: Discussed pain management with the patient. She does have a history of chronic pain issues and works with a pain clinic. I discussed with her that we are going to step her down to [place] for p.r.n. pain medication. Prescription for this was sent in for the patient. I also outlined with her that in 2 weeks we will be at 8 weeks out from surgery at which point we will no longer be prescribing narcotic pain medication and she will need to work with her pain clinic on ongoing pain management concerns. T HR MANAGER documented in this encounter Plan of Treatment Not on file documented as of this encounter Visit Diagnoses Diagnosis Postop check- Primary Follow-up examination, following unspecified surgery documented in this encounter Care Teams Assembler Product Relationship Specialty Start Date End Date Jose Holden MD [address] [place] [address] PCP - General Otolaryngology 12/14/17 documented as of this encounter
--- OUTSIDE RECORDS SUMMARY | 2023-12-08 13:20 | XMS_ITS | Continuity of Care Document ---
Author Name Unknown Organization [facility] Address [address] [place] [address] Phone Care Team Providers Care Dairy Tester Name Role Phone Kristie Prater PT Unavailable [...] Providers Copied on Encounter [facility], [address], [place], [place], [id number], [place] tel:[phone] [facility] No Information [address] Josi Flowers. [address], [place], [place], [id number], [place]. tel:[phone] New Pt Eval [facility], [address], [place], [place], [id number], [place] tel:[phone] [facility] Spondylolisthesis , lumbar regionRadiculopat [...] disorder Payers Payer name Insurance type Covered republican ID Authoriza tion(s) Medicare Part B [id number] [employer] HMO MC [id number] Social History Type Description Quantity Date Captured [...]
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
--- OUTSIDE RECORDS SUMMARY | 2023-12-08 13:21 | XMS_ITS | Encounter Summary ---
Author Name Unknown Organization [facility] Address [address], [place] [address] Care Team Providers Care Command And Control Officer Name Role Phone Jose Holden MD Primary Care Provider Encounter Details Date Type Department Care Team Description 06/29/2018 Consent for Procedure/Treatme [facility] [address] [facility] [place], [place] [id number] Tony Pittman MD [address] [place], [place] [id number] INFORMED CONSENT FOR TX/PROCEDURE Social History Tobacco Use Types Packs/Day Years [...] on filedocumented in this encounter Care Teams Command And Control Officer Relationship Specialty Start Date End Date Jose Holden MD [address] [place] [address] PCP - General Otolaryngology 12/14/17 documented as of this encounter
--- OUTSIDE RECORDS SUMMARY | 2023-12-08 13:21 | XMS_ITS | Encounter Summary ---
Author Name Unknown Organization [facility] Address [address], [place] [address] Care Team Providers Care Anesthesiology Teacher Name Role Phone Jose Holden MD Primary Care Provider Reason for Visit * Procedure/Equipment (Routine) - Incomplete Specialty Diagnoses / Procedures Referred By Tanja baca Referred To Contact Diagnoses Status post right knee replacement Procedures XR Knee Rt 3 Views Donald Medley MD [address] [facility] [address] [place] [address] Referral ID Status Reason Start Date Expiration Date V isits Requested Visits Authorized [id number] Incomplete 12/21/2022 03/21/2024 1 1 Encounter Details Date Type Department Care Team Description 12/21/2022 2:05 PM PACKAGING LINE OPERATOR Ancillary Procedure [place] [address] Radiology [address] [facility]. [place], [place] [id number] Donald Medley MD [address] [facility] [address] [place] [address] Status post right knee replacement Social History Tobacco Use Types Packs/Day Years [...] Procedure Name Priority Date/Time Associated Diagnosis Comments XR KNEE RT 3 VIEWS Routine 12/21/2022 2: 13 PM PACKAGING LINE OPERATOR Status post right knee replacement documented in this encounter Results * XR Knee Rt 3 Views (12/21/2022 2:13 PM PACKAGING LINE OPERATOR) Anatomical Region Laterality Modality Lower Extremity, Knee Computed R adiography 12/21/2022 2:04 PM PACKAGING LINE OPERATOR Impressions 12/21/2022 2:53 PM PACKAGING LINE OPERATOR COMPARISON: ??12/02/2022 FINDINGS: ??Three views were obtained. ?? Redemonstration of the revised right knee arthroplasty now with longstem femoral and tibial components in place. No evidence of immediate complication. No fracture or dislocation. Small to moderate joint effusion. Decrease prepatellar soft tissue swelling. Narrative Procedure Note Edgardo Rasheed MD - 12/21/2022 IMPRESSION COMPARISON: 12/02/2022 FINDINGS: Three views were obtained. Redemonstration of the revisedright knee arthroplasty now with longstem femoral and tibial components inplace. No evidence of immediate complication. No fracture or dislocation.Small to moderate joint effusion. Decrease prepatellar soft tissueswelling. Donald Medley MD RAD GD documented in this encounter Visit Diagnoses Diagnosis Status post right knee replacement documented in this encounter Care Teams Anesthesiology Teacher Relationship Specialty Start Date End Date Jose Holden MD [address] [place] [address] PCP - General Otolaryngology 12/14/17 documented as of this encounter
--- OUTSIDE RECORDS SUMMARY | 2023-12-08 13:21 | XMS_ITS | Encounter Summary ---
Author Name Unknown Organization [facility] Address [address] [place] [address] Care Team Providers Care Capability Lead Name Role Phone Jose Holden MD Primary Care Provider Reason for Visit * Reason Comments PAIN, POST OPERATIVE Encounter Details Date Type Department Care Team Description 12/11/2022 Telephone [facility]line [address] [place] [phone] Unassigned, Provider [address] [place] [address] PAIN, POST OPERATIVE Social History Tobacco Use Types Packs/Day Years [...] as of this encounter Nursing Notes * Ellen Ramirez RN - 12/11/2022 8:49 AM CST Verified patient identity: Yes Situation/Background (brief explanation of current symptoms/situation): right knee hardware replaced 2 days Reviewed with patient pertinent medical history (as it related to the call): Yes Reviewed with patient pertinent medications (as they relate to call): Yes dilaudid, tylenol 2 tabs Reviewed with patient pertinent allergies (as they relate to call): Yes Patient seen at [facility] in [place]. Pt transferred to switchboard to talk to OLGA galarza. .Ellen Ramirez RN 12/11/2022, 8:51 AM CUT OPERATOR * Priya Brewster - 12/11/2022 8:47 AM CST Verified patient identity using three identifiers: Yes Caller's relationship to patient: Self Do you get your primary care at a [facility] or [facility] clinic: [facility] Do you see a PN specialist for the reason you are calling? No [facility] Select Member: No Are you calling about a positive COVID result: No Symptoms Describe the reason for call/symptoms (include location and duration if applicable): Patient statesthey had Right knee surgery about two weeks ago. Today patient having severe pain. Plan:Caller transferred directly to CareLine nurse. CUT OPERATOR documented in this encounter Plan of Treatment Not on file documented as of this encounter Visit Diagnoses Not on filedocumented in this encounter Care Teams Capability Lead Relationship Specialty Start Date End Date Jose Holden MD [address] [place] [address] PCP - General Otolaryngology 12/14/17 documented as of this encounter
--- OUTSIDE RECORDS SUMMARY | 2023-12-08 13:21 | XMS_ITS | Encounter Summary ---
Author Name Unknown Organization [facility] Address [address] [place] [address] Care Team Providers Care Coil Binder Name Role Phone Jose Holden MD Primary Care Provider Reason for Visit * Reason Comments Surgery Questions Encounter Details Date Type Department Care Team Description 10/15/2022 Telephone [facility] [address] [place] [address] Donald Medley MD [address] [facility] [address] [place] [address] Surgery Questions Social History Tobacco Use Types Packs/Day Years [...] as of this encounter Nursing Notes * Elva Bradshaw - 10/19/2022 11:29 AM CST Surgery scheduled. Packet mailed. Thank you CD RTMENT DIRECTOR * Su Benavidez - 10/15/2022 3:33 PM CST Patient is wanting a call back to schedule surgery with Dr. Medley. She is hoping to have the date available soon with the holidays coming up. Please call when able. RTMENT DIRECTOR documented in this encounter Plan of Treatment Not on file documented as of this encounter Visit Diagnoses Not on filedocumented in this encounter Care Teams Coil Binder Relationship Specialty Start Date End Date Jose Holden MD [address] [place] [address] PCP - General Otolaryngology 12/14/17 documented as of this encounter
--- OUTSIDE RECORDS SUMMARY | 2023-12-08 13:21 | XMS_ITS | Encounter Summary ---
Author Name Unknown Organization [facility] Address [address] [place] [address] Care Team Providers Care Goodwill Representative Name Role Phone Jose Holden MD Primary Care Provider Reason for Visit * Reason Comments QUESTIONS, GENERAL PAIN, POST OPERATIVE Refill Provider Orders Encounter Details Date Type Department Care Team Description 12/06/2022 Telephone [facility] [address] [place] [address] Donald Medley MD [address] [facility] 200 [place] [address] QUESTIONS, GENERAL; PAIN, POST OPERATIVE; Refill; Provider Orders Social History Tobacco Use Types Packs/Day Years [...] Nursing Notes * Paulina Mcdaniels RN - 12/08/2022 2:17 PM CST Order faxed to the new fax number below. NSED NUCLEAR CONTROL ROOM OPERATOR * Livan Briceno - 12/08/2022 1:43 PM CST Patient called to up team with a new fax number for PT orders. # [phone] Please advise NSED NUCLEAR CONTROL ROOM OPERATOR * Kaykay Adams RN - 12/06/2022 3:58 PM CST Pt says her knee has been really painful. She has not started PT yet, database report writer re- faxed the PT orderto [facility]; ATTN THEO [phone]. Pt says the knee feels like it is going to give out and has a clicking noise. Pt has shooting pain from knee up to the groin and from the knee to the toes. Pt takes Oxycodone for chronic pain. She has been taking 2 tabs of Hydromorphone q3, Tylenol 1-2 tabs q3 but Tylenol has been gone for about 3 days, Hydroxyzine 1 tab q6 and needs refill, she cannot take NSAIDS. We discussed she is taking too much Tylenol and should take 1000mg q6 and not to exceed 4000mg in 24 hours. She also said she was being prescribed 4mg tabs of Hydromorphone and now was prescribed 2mg tabs and is running out too soon. Pt says her and had discussed this, but database report writer does not see this in the [facility] note from 12/02. Bath House Attendant put in refills for Hydromorphone 4mg tabs, Tylenol, Zofran and Hydroxyzine. We discussed the importance of starting PT and that she wants to bend the knee and keep it moving,so she doesn't get scar tissue built up, which is most likely the clicking she is hearing in the knee. Pt will call our clinic back PRN. Action: New order Next Step: Review associated dx/order for accuracy and sign pended orders, if appropriate. and Caller is NOT expecting a call back from care team, Close encounter. Specific Request(s): 1. Pt says her being prescribed 4mg q3 hrs was discussed at [facility], database report writer does not see this discussedin [facility] note form 12/02. Pended Hydromorphone 4mg tabs, as well as refill requests for Hydroxyzine, Tylenol and Zofran. DOS: 11/17/2022 Revision R TKA NSED NUCLEAR CONTROL ROOM OPERATOR * Mulu Melendrez - 12/06/2022 3:52 PM CST Has the patient recently had surgery or an injury? No How may we help you today? Patient called today stating that she missed a call from Dr. Medley's nurse. She listened to the voicemail but couldn't catch the last four numbers to the triage nurse line. She would like a call back today please advise. Describe your symptoms/concerns: NA When did the issue start: NA Have you been seen for this recently?: NA [Crisis Mental Health Therapist/Appt Center: If yes, please include date and provider.] Is it okay to leave detailed message on your voicemail? Yes [Crisis Mental Health Therapist/Appt Center: If this call is after 3 p.m., communicate to patient: If we are not able to get back to you by the end of the day and your symptoms worsen please contact the Careline] NSED NUCLEAR CONTROL ROOM OPERATOR * Kaykay Adams RN - 12/06/2022 2:50 PM CST Left message for caller to return call to Nurse Triage line. NSED NUCLEAR CONTROL ROOM OPERATOR * Raquel Antunez - 12/06/2022 1:40 PM CST Has the patient recently had surgery or an injury? Yes. Date of Surgery: November 17, 2022 Type of Surgery: REVISION RIGHT TOTAL KNEE ARTHROPLASTY How may we help you today? Patient asking for help with a stronger pain med. Stated what she is currently taking is not working well for her pain. Also stated she wanted a refill on the Acetaminophen. Also needed to see where the PT was sent so she can get in to be seen. Please Advise Describe your symptoms/concerns: Medication Stronger, PT When did the issue start: 12/06/22 Have you been seen for this recently?: [Crisis Mental Health Therapist/Appt Center: If yes, please include date and provider.] Is it okay to leave detailed message on your voicemail? 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
--- OUTSIDE RECORDS SUMMARY | 2023-12-08 13:21 | XMS_ITS | Encounter Summary ---
Author Name Unknown Organization [facility] Address [address], [place] [address] Care Team Providers Care Vacuum Conditioner Operator Name Role Phone Jose Holden MD Primary Care Provider Reason for Referral * Procedure/Equipment (Routine) - Incomplete Specialty Diagnoses / Procedures Referred By Tanja baca Referred To Contact Diagnoses Status post right knee replacement Procedures XR Knee Rt 3 Views [place] Medley MD [address] [facility] [address] [place] [address] Referral ID Status Reason Start Date Expiration Date V isits Requested Visits Authorized [id number] Incomplete 12/21/2022 03/21/2024 1 1 NICAL APPLICATIONS SPECIALIST Reason for Visit * Reason Comments Post-Op Check Encounter Details Date Type Department Care Team Description 12/21/2022 1:45 PM TECHNICAL APPLICATIONS SPECIALIST Office Visit [facility] [address] [facility] [place] [address] Donald Medley MD [address] [facility] [address] [place] [address] Status post right knee replacement (Primary Dx); Pain due to total right knee replacement, [...] Progress Notes * [place] Medley MD - 12/21/2022 1:45 PM CST Chief Complaint: Postop visit for revision right total knee arthroplasty History: Patient is approximately 4 weeks out from revision right total knee arthroplasty. She is reporting ongoing difficulties with pain control. She has finally started working with physical therapy. Meds, PMHx, PSHx, and allergies - see EMR. ROS: Musculoskeletal ROS is significant for right knee issues outlined above. Exam: Awake and alert. Fully oriented. Surgical incision is healing appropriately. There is some subtle warmth associated with the right knee. No obvious erythema. Range motion is satisfactory. CMS intact. Skin intact. Imaging: Repeat x-rays were obtained revision total knee arthroplasty components appear in stable position Assessment: Stable postop exam Plan: Continue working with physical therapy. She had reported that the knee feels unsteady or wants to buckle on her. On physical exam it is stable to varus and valgus stress. I think her biggest issue at this point is insufficient rehab as far as quad strengthening. I stressed her the her the importance of working diligently with her physical therapy. I also again outlined with her that with the amount of narcotic pain medications that she takes chronically pain control after surgical procedure is going to be exceedingly difficult. We are a month out from the surgery and I think we need to begin talking about weaning her off the acute postoperative pain medications over the next 2-3 weeks. NICAL APPLICATIONS SPECIALIST documented in this encounter Plan of Treatment Not on file documented as of this encounter Results * C-Reactive Protein (12/21/2022 3:01 PM TECHNICAL APPLICATIONS SPECIALIST) Pathologist [facility] C-Reactive Protein <0.5 0.0 - 0.7 mg/dL 12/21/2022 6:46 PM TECHNICAL APPLICATIONS SPECIALIST [facility] Blood Venipuncture / Unknown 12/21/2022 3:01 PM TECHNICAL APPLICATIONS SPECIALIST 12/21/2022 3:01 PM TECHNICAL APPLICATIONS SPECIALIST [place] Medley MD LAB_1 [facility] [address] [place] [address], [facility] [phone] * XR Knee Rt 3 Views (12/21/2022 2:13 PM TECHNICAL APPLICATIONS SPECIALIST) Anatomical Region Laterality Modality Lower Extremity, Knee Computed R adiography 12/21/2022 2:04 PM TECHNICAL APPLICATIONS SPECIALIST Impressions 12/21/2022 2:53 PM TECHNICAL APPLICATIONS SPECIALIST COMPARISON: ??12/02/2022 FINDINGS: ??Three views were obtained. [...] Visit Diagnoses Diagnosis Status post right knee replacement- Primary Pain due to total right knee replacement, initial encounter ([facility]) Status post right knee replacement documented in this encounter Care Teams Vacuum Conditioner Operator Relationship Specialty Start Date End Date Jose Holden MD [address] [place] [address] PCP - General Otolaryngology 12/14/17 documented as of this encounter
--- OUTSIDE RECORDS SUMMARY | 2023-12-08 13:21 | XMS_ITS | Encounter Summary ---
Author Name Unknown Organization [facility] Address [address] [address] Care Team Providers Care Disabilities Services Officer Name Role Phone Jose Holden MD Primary Care Provider Encounter Details Date Type Department Care Team Description 03/06/2019 Consent for Procedure/Treatm ent [facility] [address] [facility]. [place], [place] [id number] Tony Pittman MD [address] [place] [address] INFORMED CONSENT BUPRENORPHINE TREATMENT Social History Tobacco Use Types Packs/Day Years [...] on filedocumented in this encounter Care Teams Disabilities Services Officer Relationship Specialty Start Date End Date Jose Holden MD [address] [place] [address] PCP - General Otolaryngology 12/14/17 documented as of this encounter
--- OUTSIDE RECORDS SUMMARY | 2023-12-08 13:21 | XMS_ITS | Encounter Summary ---
Author Name Unknown Organization [facility] Address [address], [place] [address] Care Team Providers Care Rod Mill Tender Name Role Phone Jose Holden MD Primary Care Provider Encounter Details Date Type Department Care Team Description 06/20/2018 Consent for Procedure/Treatme [facility] [address] [facility]. [place], [place] [phone] Tony Pittman MD [address] [place] [address] INFORMED CONSENT FOR TX/PROCEDURE Social History Tobacco [...] on filedocumented in this encounter Care Teams Rod Mill Tender Relationship Specialty Start Date End Date Jose oHlden MD [address] [place] [address] PCP - General Otolaryngology 12/14/17 documented as of this encounter
--- OUTSIDE RECORDS SUMMARY | 2023-12-08 13:21 | XMS_ITS | Encounter Summary ---
Author Name Unknown Organization [facility] Address [address] [place] [address] Care Team Providers Care Pacu Nurse Name Role Phone Jose Holden MD Primary Care Provider Reason for Visit * Reason Comments Surgery Questions Encounter Details Date Type Department Care Team Description 11/11/2022 Telephone [facility] [address] [place] [address] Donald Medley MD [address] [facility] [address] [place] [address] Surgery Questions Social History Tobacco [...] encounter Nursing Notes * Elva Bradshaw - 11/11/2022 12:44 PM CST Per the patient surgical letter they should have faxed the results to [facility] directly - I do not get the pre-ops here. LVM with this information -- she will receive a call from [facility] 1-3 business days prior to surgery with final details. Thank you CD N SAMPLER * Marianne Jon - 11/11/2022 11:08 AM CST Has the patient recently had surgery or an injury? No How may we help you today? Patient calling stating she would like to know if her pre op informationwas receive by fax. Patient is also asking if there is any special equipment she has to use. Pleaseadvise Describe your symptoms/concerns: na When did the issue start: na Have you been seen for this recently?: na [Preflight Mechanic/Appt Center: If yes, please include date and provider.] Is it okay to leave detailed message on your voicemail? YES [Preflight Mechanic/Appt Center: If this call is after 3 p.m., communicate to patient: If we are not able to get back to you by the end of the day and your symptoms worsen please contact the Careline] N SAMPLER documented in this encounter Plan of Treatment Not on file documented as of this encounter Visit Diagnoses Not on filedocumented in this encounter Care Teams Pacu Nurse Relationship Specialty Start Date End Date Jose Holden MD [address] [place] [address] PCP - General Otolaryngology 12/14/17 documented as of this encounter
--- OUTSIDE RECORDS SUMMARY | 2023-12-08 13:21 | XMS_ITS | Encounter Summary ---
Author Name Unknown Organization [facility] Address [address] [place] [address] Care Team Providers Care Bulk Driver Name Role Phone Jose Holden MD Primary Care Provider Encounter Details Date Type Department Care Team Description 12/16/2022 Notes/Orders [facility] [address] [place] [address] Donald Medley MD [address] [facility] [address] [place] [address] Social History Tobacco Use Types Packs/Day Years [...] on filedocumented in this encounter Care Teams Bulk Driver Relationship Specialty Start Date End Date Jose Holden MD [address] [place] [address] PCP - General Otolaryngology 12/14/17 documented as of this encounter
--- OUTSIDE RECORDS SUMMARY | 2023-12-08 13:21 | XMS_ITS | Encounter Summary ---
Author Name Unknown Organization [facility] Address [address] [address] Care Team Providers Care Access Clinician Name Role Phone Jose Holden MD Primary Care Provider Encounter Details Date Type Department Care Team Description 07/10/2018 Consent for Procedure/Treatme [facility] [address] [facility]. [place], [place] [phone] [place] Pittman MD [address] [place] [address] INFORMED CONSENT FOR TX/PROCEDURE Social [...] on filedocumented in this encounter Care Teams Access Clinician Relationship Specialty Start Date End Date Jose Holden MD [address] [place] [address] PCP - General Otolaryngology 12/14/17 documented as of this encounter
--- OUTSIDE RECORDS SUMMARY | 2023-12-08 13:21 | XMS_ITS | Encounter Summary ---
Author Name Unknown Organization [facility] Address [address], [place] [address] Care Team Providers Care Director Zone Name Role Phone Jose Holden MD Primary Care Provider Encounter Details Date Type Department Care Team Description 02/06/2019 Consent for Procedure/Treatme [facility] [address] [facility]. [place], [place] [phone] Tony Pittman MD [address] [place] [address] INFORMED CONSENT FOR TX/PROCEDURE Social [...] filedocumented in this encounter Care Teams Director Zone Relationship Specialty Start Date End Date Jose Holden MD [address] [place] [address] PCP - General Otolaryngology 12/14/17 documented as of this encounter
--- OUTSIDE RECORDS SUMMARY | 2023-12-08 13:21 | XMS_ITS | Encounter Summary ---
Author Name Unknown Organization [facility] Address [address] [place] [address] Care Team Providers Care Silo Tender Name Role Phone Jose Holden MD Primary Care Provider Reason for Visit * Reason Comments APPOINTMENT REQUEST Encounter Details Date Type Department Care Team Description 12/16/2022 Telephone [facility] [address] [place] [address] Donald Medley MD [address] [facility] [address] [place] [address] APPOINTMENT REQUEST Social History Tobacco Use Types Packs/Day Years [...] as of this encounter Nursing Notes * Carolynn Flanagan - 12/16/2022 6:26 PM CST called the patient this afternoon. UTATOR OPERATOR * Paulina Mcdaniels RN - 12/16/2022 3:57 PM CST Patient calls in and states that she did not receive a call this morning to advise her that Dr. Medley was unavailable. Please contact the patient today for her phone visit to discuss pain management. UTATOR OPERATOR * Brooklyn Toure - 12/16/2022 2:41 PM CST Pt is calling again, states she still has not gotten a call from Dr Medley or anyone on his care team and she is out of medication so needs to talk to someone jolie. UTATOR OPERATOR * Makenzie Friend - 12/16/2022 9:36 AM CST Has the patient recently had surgery or an injury? Yes. Date of Surgery: November 17, 2022 Type of Surgery: right TKA How may we help you today? Pt had a phone visit scheduled for today 12-16-22 at 9:00 am , and pt states she never received the call. I verified her phone number and it is correct. Pt state that the visit has to be sooner than later due to medications that are not working. Describe your symptoms/concerns: n/a When did the issue start: 12-16-22 Have you been seen for this recently?: yes [Special Forces Officer/Appt Center: If yes, please include date and provider.] Is it okay to leave detailed message on your voicemail? yes [Special Forces Officer/Appt Center: If this call is after 3 p.m., communicate to patient: If we are not able to get back to you by the end of the day and your symptoms worsen please contact the Careline] UTATOR OPERATOR documented in this encounter Plan of Treatment Not on file documented as of this encounter Visit Diagnoses Not on filedocumented in this encounter Care Teams Silo Tender Relationship Specialty Start Date End Date Jose Holden MD [address] [place] [address] PCP - General Otolaryngology 12/14/17 documented as of this encounter
--- OUTSIDE RECORDS SUMMARY | 2023-12-08 13:21 | XMS_ITS | Encounter Summary ---
Author Name Unknown Organization [facility] Address [address], [place] [address] Care Team Providers Care Bilingual Executive Assistant Name Role Phone Jose Holden MD Primary Care Provider Encounter Details Date Type Department Care Team Description 08/14/2018 Consent for Procedure/Treatme [facility] [address]. [place], [place] [phone] [place] Pittman MD [address] [place] [address] INFORMED CONSENT FOR TX/PROCEDURE Social [...] on filedocumented in this encounter Care Teams Bilingual Executive Assistant Relationship Specialty Start Date End Date Jose Holden MD [address] [place] [address] PCP - General Otolaryngology 12/14/17 documented as of this encounter
--- OUTSIDE RECORDS SUMMARY | 2023-12-08 13:21 | XMS_ITS | Encounter Summary ---
Author Name Unknown Organization [facility] Address [address], [place] [address] Care Team Providers Care Cast Shell Grinder Name Role Phone Jose Holden MD Primary Care Provider Encounter Details Date Type Department Care Team Description 02/20/2018 Consent for Procedure/Treatment [facility] INFORMED CONSENT RECORD Social History Tobacco Use Types Packs/Day [...] on filedocumented in this encounter Care Teams Cast Shell Grinder Relationship Specialty Start Date End Date Jose Holden MD [address] [place] [address] PCP - General Otolaryngology 12/14/17 documented as of this encounter
--- OUTSIDE RECORDS SUMMARY | 2023-12-08 13:21 | XMS_ITS | Encounter Summary ---
Author Name Unknown Organization [facility] Address [address], [place] [address] Care Team Providers Care Hogshead Opener Name Role Phone Jose Holden MD Primary Care Provider Encounter Details Date Type Department Care Team Description 11/10/2018 Emergency Room External to External, [place] [address] FALL/HEADACHE NECK LT SHOULDER KNEE HIP PAIN Social History Tobacco Use Types Packs/Day Years [...] on filedocumented in this encounter Care Teams Hogshead Opener Relationship Specialty Start Date End Date Jose Holden MD [address] [place] [address] PCP - General Otolaryngology 12/14/17 documented as of this encounter
--- OUTSIDE RECORDS SUMMARY | 2023-12-08 13:21 | XMS_ITS | Encounter Summary ---
Author Name Unknown Organization [facility] Address [address] [place] [address] Care Team Providers Care Telecommunications Support Name Role Phone Jose Holden MD Primary Care Provider Reason for Visit * Reason Comments Surgery Questions Encounter Details Date Type Department Care Team Description 10/22/2022 Telephone [facility] [address] [place] [address] [place] Medley MD [address] [facility] [address] [place] [address] Surgery Questions Social History Tobacco [...] encounter Nursing Notes * Elva Bradshaw - 10/22/2022 3:06 PM CST I spoke with Angie, confirmed her dos and location. Thank you CD DEVELOPER * Marianne Jon - 10/22/2022 9:44 AM CST Has the [...] you been seen for this recently?: na [Cementer/Appt Center: If yes, please include date and provider.] Is it okay to leave detailed message on your voicemail? YES [Cementer/Appt Center: If this call is after 3 p.m., communicate to patient: If we are not able to get back to you by the end of the day and your symptoms worsen please contact the Careline] DEVELOPER documented in this encounter Plan of Treatment Not on file documented as of this encounter Visit Diagnoses Not on filedocumented in this encounter Care Teams Telecommunications Support Relationship Specialty Start Date End Date Jose Holden MD [address] [place] [address] PCP - General Otolaryngology 12/14/17 documented as of this encounter
--- OUTSIDE RECORDS SUMMARY | 2023-12-08 13:21 | XMS_ITS | Encounter Summary ---
Author Name Unknown Organization [facility] Address [address] [address] Care Team Providers Care Device Sales Consultant Name Role Phone Jose Holden MD Primary Care Provider Reason for Referral * Procedure/Equipment (Routine) - Closed Specialty Diagnoses / Procedures Referred By Tanja baca Referred To Contact Diagnoses Status post revision of total replacement of right knee Procedures Crutches, forearm, pair (E0110) Donald Medley MD [address] [address] POS NOT ON FILE Referral ID Status Reason Start Date Expiration Date Visits Re quested Visits Authorized [id number] Closed 11/24/2022 05/23/2023 1 1 LOADER * Procedure/Equipment (Routine) - Closed Specialty Diagnoses / Procedures Referred By Tanja baca Referred To Contact Diagnoses Status post revision of total replacement of right knee Procedures Bath/shower chair (E0240) Donald Medley MD [address] [facility] [address] [place] [address] POS NOT ON FILE Referral ID Status Reason Start Date Expiration Date Visits Re quested Visits Authorized [id number] Closed 11/24/2022 05/23/2023 1 1 LOADER Reason for Visit * Reason Comments RASH ITCHING Medication Request Orders Needed Encounter Details Date Type Department Care Team Description 11/23/2022 Nurse Triage [facility] [address] [place] [phone] Donald Medley MD [address] [facility] [address] [place] [phone] RASH; ITCHING; Medication Request; Orders Needed Social History Tobacco Use Types [...] Nursing Notes * Ivania Arvizu OA - 11/30/2022 10:48 AM CST Orders signed and faxed today. LOADER * Paulina Mcdaniels RN - 11/24/2022 8:48 AM CST MD please address request #1 below. Orders were faxed to [facility] today. Please fax again with co-sign completed or order signed by MD to ensure proper insurance coverage with MD signature. LOADER * Tejal Norman RN - 11/23/2022 10:45 AM CST Action: Input needed and New order Next Step: Review associated dx/order for accuracy and sign pended orders, if appropriate. and Route to ORTHO PN TRIAGE [[id number]] Specific Request(s): 1. Please advise if you want patient to remove waterproof dressing and start daily dry dressing changes with ROBBY wrap holding dressings in place OR leave Tegaderm in place and continue to monitor. Home care Nurse comes tomorrow 11/24/22 2. Patient requesting order for shower chair and forearm crutches. Orders pending. Fax to [facility] [phone] Spoke with patient, c/o widespread rash on arms, legs, head, chest and rash under surgical dressing. Widespread rash starting in hospital thought d/t soap used from skin prep wipes. Wide spread rash is Bright red and pink raised, itchy. Rash under dressing is pink and patient believes she is starting to form blisters. Patient has history of itching and rash with adhesives and Tegaderm. Patient has been taking oral benadryl which is helping itching some, but not helping with rash. Patient is also using OTC benadryl spray for anti itching. Has showered at hospital to remove skin prep. Denies difficulty breathing or swallowing, swelling of face/tongue/throat/lips, severe itching, hives. Nurse aide and Home nurse are coming out tomorrow 11/24/22 and can help with removing dressing and applying ROBBY wrap if needed and to help shower. Patient reports she is using Platform with walker attachment due to hx L shoulder reconstruction, Lhand weakness, but is getting a sore from platform. Also waker is too big to move around apartment and to use in bathroom. Patient reports she has to lift walker as it does not slide on carpet. Patient requesting antinausea medication d/t nausea and gaging reflex with medications. Patient reports this is an issues because of hx gastic bypass. Patient was having this issue in hospital and report antinausea medication helps. Drum Sprayer recommend to continue OTC benadryl and anti-itch spray. Likely will defer any further medications to PCP, but will see if surgeon would like patient to remove surgical dressing. Drum Sprayer sent in antinausea medication to pharmacy per RN standing order. Advised patient PT is recommended and PCP office should be calling today or tomorrow to help coordinate. Per AVS from [facility], [facility] did call and speak with Dr. Blackwell's staff- they will reach out to patient on TuesdayNovember 23 to help coordinate outpatient therapy, if needed. Future Appointments Date Time Provider Department Center 12/02/2022 1:00 PM Donald Medley MD [facility] 12/31/2022 11:00 AM Donald Medley MD [facility] Reason for Disposition ??? Drug rash suspected and started taking new medicine within last 2 weeks (Exception: Antihistamine, eye drops, ear drops, decongestant or other OTC cough/cold medicines.) Protocols used: Rash or Redness - [id number] LOADER * Kristel Wallis - 11/23/2022 10:06 AM CST Has the patient recently had surgery or an injury? Yes. Date of Surgery: November 17, 2022 Type of Surgery: R TKA How may we help you today? Patient is requesting orders for a shower chair and walking sticks. Describe your symptoms/concerns: She also thought she was having a nurse visit her and has concernsabout needing help. She also has a rash on her body that she thinks she is allergic either to the soap or tape. She also would like nausea medication. When did the issue start: Have you been seen for this recently?: [Import Customer Service Manager/Appt Center: If yes, please include date and provider.] Is it okay to leave detailed message on your voicemail? Yes [Import Customer Service Manager/Appt Center: If this call is after 3 p.m., communicate to patient: If we are not able to get back to you by the end of the day and your symptoms worsen please contact the Careline] LOADER documented in this encounter Plan of Treatment Not on file documented as of this encounter Visit Diagnoses Diagnosis Status post revision of total replacement of right knee- Primary Nausea and vomiting, unspecified vomiting type documented in this encounter Care Teams Device Sales Consultant Relationship Specialty Start Date End Date Jose Holden MD [address] [place] [id number] PCP - General Otolaryngology 12/14/17 documented as of this encounter
--- OUTSIDE RECORDS SUMMARY | 2023-12-08 13:21 | XMS_ITS | Encounter Summary ---
Author Name Unknown Organization [facility] Address [address], [place] [address] Care Team Providers Care Green Lumber Grader Name Role Phone Jose Holden MD Primary Care Provider Encounter Details Date Type Department Care Team Description 12/26/2018 Consent for Procedure/Treatme [facility] Management [address] [facility] [place], [place] [phone] Tony Pittman MD [address] [place] [address] CONSENT FOR PROCEDURE Social History Tobacco Use Types Packs/Day Years [...] on filedocumented in this encounter Care Teams Green Lumber Grader Relationship Specialty Start Date End Date Jose Holden MD [address] [place] [address] PCP - General Otolaryngology 12/14/17 documented as of this encounter
--- OUTSIDE RECORDS SUMMARY | 2023-12-08 13:21 | XMS_ITS | Encounter Summary ---
Author Name Unknown Organization [facility] Address [address] [place] [address] Care Team Providers Care Financial Writer Name Role Phone Jose Holden MD Primary Care Provider Reason for Visit * Reason Onset Date Comments Medication Questions Refill PAIN, POST OPERATIVE 12/13/2022 Encounter Details Date Type Department Care Team Description 12/13/2022 Telephone [facility] [address] [place] [address] Donald Medley MD [address] [facility] [address] [place] [address] Medication Questions; Refill; PAIN, POST OPERATIVE Social History Tobacco Use [...] Nursing Notes * Paulina Mcdaniels RN - 12/15/2022 3:30 PM CST Action: Pain Management Next Step: Caller is NOT expecting a call back from care team, Close encounter. Patient scheduled for a phone visit with on 12/16/22 Specific Request(s): 1. Pt is having ongoing challenges with pain control. Her home care nurse came today and her BP is becoming more elevated and this is though to be from her uncontrolled pain. The pt states that she was 135- 140/something which is above her normal. She states she wakes up at night and is crying for 2 hours straight because of the pain and the medication don't seem to be working. She continues to take her chronic pain medications in addition to hydromorphone 4mg every 4 hours. She even tried to take 2mg Q3H, but that didn't manage her pain either. She is using ice, elevation and performing ROM and walking. Has not started formal PT at this time. She denies her incision being red and states she doesn't feel her knee is infected. The knee is hotto touch, but she is still experiencing swelling. Encouraged use of an peter bandage or tubigrip during the day to help with her pain and swelling. The pt was advised that at this point with her lack in pain control she needs to talk with Dr. Medley to discuss ongoing management and have refills addressed PRN. The pt agreed to this and a phone visit was scheduled for 12/16 at 0900. The pt verbalized understanding. SHAKER * Rocio Aguilar - 12/15/2022 1:22 PM CST Patient calling back to further discuss her pain medications as she continues to be in a lot of pain. Patient would like to discuss with care team. Please advise. SHAKER * Paulina Mcdaniels RN - 12/13/2022 5:03 PM CST Rxs refilled by MD and patient advised. Encouraged ongoing use of acetaminophen and hydroxyzine. Pt also advised to start to taper off of this medication as much as she is able. If a refill is going to be needed prior to the weekend advised she call afternoon or Tuesday right away in the morning. Pt verbalized understanding. SHAKER * Kaykay Adams RN - 12/13/2022 4:51 PM CST Spoke with pt and let her know will address her refill once he is out of surgery and thatit has been routed high priority. She said her pharmacy closes at 6PM. SHAKER * Marianne Jon - 12/13/2022 4:27 PM CST Patient calling stating she would like to know if the prescription has been taken care of. Patient is checking because her pharmacy closes at 6pm. Please advise SHAKER * Lin Flaherty - 12/13/2022 11:21 AM CST Has the patient recently had surgery or an injury? Yes. Date of Surgery: November 17, 2022 Type of Surgery: Revision Right Total Knee Arthroplasty by Donald Molina How may we help you today? Refill Describe your symptoms/concerns: Pt. Called, requesting an update on the status of her refill request. [facility] advised that refill was pending. Pt. Stated that her pharmacy has had issued receiving prescriptions in the past and would like to ensure that this does not happen. Please follow up with Pt. When possible to update on Rx When did the issue start: N/A Have you been seen for this recently?: N/A [Industrial Maintenance Repairer/Appt Center: If yes, please include date and provider.] Is it okay to leave detailed message on your voicemail? Yes [Industrial Maintenance Repairer/Appt Center: If this call is after 3 p.m., communicate to patient: If we are not able to get back to you by the end of the day and your symptoms worsen please contact the Careline] SHAKER * Kaykay Adams RN - 12/13/2022 9:21 AM CST Pt says she has not slept in 2 nights and says she is having quite a bit of pain. She called the nurse careline on 12/11 for pain and was told to take Ibuprofen by the dry wall installations mechanic. She is currently takingIbuprofen 600mg q4 hours, Tylenol 1000mg q5, Hydroxyzine 1 tab twice daily, Hydromorphone 2 tabs q3-4 hours. We discussed she is taking the Tylenol and Ibuprofen too often and should take 1000mg of Tylenol q6. Pt said she had a gastric bypass and was told not take NSAIDS. Ranch Rider advised pt not to take NSAIDS if she was told not to take them. Pt said she was told by that she has a lot ofscar tissue around her knee and this is what is causing her pain. Pt starts PT this and says she has been doing exercises and walking at home. She says she is still icing a couple times a day. She said her montes and knee hurts. We discussed RICE. She needs a refill on Hydroxyzine and Hydromorphone. [facility] will send refill request. Action: Refill Request Next Step: Review associated dx/order for accuracy and sign pended orders, if appropriate and Caller is NOT expecting a call back from care team DOS/Procedure or Last OV: 11/17/22 Revision R TKA Last filled quantity and date: Hydromorphone 12/06 #30 tabs Hydroxyzine 12/06 #40 tabs Pharmacy preference verified, medication pended. Requested Prescriptions Pending Prescriptions Disp Refills HYDROmorphone (DILAUDID) 2 MG tablet 30 Tablet 0 Sig: Take 2 Tablets (4 mg) by mouth every 4 hours as needed for Pain. hydrOXYzine pamoate (VISTARIL) 25 MG capsule 30 Capsule 0 Sig: Take 1 Capsule (25 mg) by mouth every 6 hours as needed for Pain or Itching. Future Appointments Date Time Provider Department Center 12/31/2022 11:00 AM oDnald Medley MD [facility] SHAKER * Celeste Jaimes - 12/13/2022 8:41 AM CST Has the patient recently had surgery or an injury? Yes. Date of Surgery: November 17, 2022 Type of Surgery: REVISION RIGHT TOTAL KNEE ARTHROPLASTY How may we help you today? Pt calling to speak with or nurse Describe your symptoms/concerns: pt calling to discuss medication questions and would like to see if any changes can be made to help manage pain/ please advise Is it okay to leave detailed message on your voicemail? Yes [Industrial Maintenance Repairer/Appt Center: If this call is after 3 p.m., communicate to patient: If we are not able to get back to you by the end of the day and your symptoms worsen please contact the Careline] SHAKER documented in this encounter Plan of Treatment Not on file documented as of this encounter Visit Diagnoses Diagnosis Status post revision of total replacement of right knee documented in this encounter Care Teams Financial Writer Relationship Specialty Start Date End Date Jose Holden MD [address] [place] [address] PCP - General Otolaryngology 12/14/17 documented as of this encounter
--- OUTSIDE RECORDS SUMMARY | 2023-12-08 13:22 | XMS_ITS | Clinical Summary ---
Author Name Unknown Organization [facility] Address [address] [place] [address] Care Team Providers Care Senior Property Accountant Name Role Phone Clemente Blackwell MD Primary Care Provider Allergies Active Allergy Reactions Criticality Noted Date Comments Acyclovir Rash Low 07/18/2016 Adhesive Tape 07/18/2016 Amoxicillin 07/18/2016 Benzoin Blisters 10/13/2017 Cephalosporins Rash Low 10/13/2017 Gabapentin 05/17/2017 Soy Allergy 10/13/2017 [place] Rash Low 10/13/2017 Sulfamethoxazole-Trimethoprim GI Disturbance GI upset Chlorhexidine Dermatitis 10/13/2017 Tegaderm Transparent Dressin g (Informational Only) 07/18/2016 Medications Medication Sig Dispensed Refills Start Date End Date Status Pregabalin (LYRICA PO) Take 150 mg by mouth daily 0 Active LamoTRIgine (LAMICTAL PO) Take 200 mg by mouth 2 times daily 0 Active potassium chloride rebekah er (K-DUR) Take 20 mEq by mouth 2 times daily (Takes 2 x 10meq tablet = 20meq dose) 0 Active Furosemide (LASIX PO) Take 40 mg by mouth daily (Takes 2 x 20mg tablet = 40mg dose) 0 Active OXYCODONE HCL PO Take 5 mg by mouth every 4 hours as needed 0 Active Acetaminophen (TYLENOL PO) Take 1,300 mg by mouth every 8 hours as needed 0 Active DIAZEPAM PO Take 10 mg by mouth 3 times daily as needed for anxiety 0 Active ondansetron (ZOFRAN-ODT) 4 MG ODT tab Take 4 mg by mouth every 8 hours as needed for nausea 0 Active BENZONATATE PO Take 200 mg by mouth 3 times daily as needed for cough 0 Active nicotine (NICOTROL) 10 MG Inhaler Inhale 6-16 Cartridges into the lungs daily as needed for smoking cessation 0 Active estradiol (VIVELLE-DOT) 0.05 MG/24HR BIW patch Place 1 patch onto the skin twice a week Tuesday and Fridays 0 Active hydrocortisone 2.5 % cream Apply topically 4 times daily as needed 0 Active ZONISAMIDE PO Take 300 mg by mouth 2 times daily (3 x 100mg tablet = 300mg dose) 0 Active CYANOCOBALAMIN PO Take 5,000 mcg by mouth daily 0 Active FOLIC ACID PO Take 800 mcg by mouth daily 0 Active budesonide-formoter ol (SYMBICORT) 160-4.5 MCG/ACT Inhaler Inhale 2 puffs into the lungs 2 times daily 0 Active medical cannabis (Patient's own supply. Not a prescription) Take 1 capsule by mouth daily (This is NOT a prescription, and does not certify that the patient has a qualifying medical condition for medical cannabis. The purpose of this order is to document that the patient reports taking medical cannabis.) 0 Active albuterol (PROAIR HFA/PROVENTIL HFA/VENTOLIN HFA) 108 (90 BASE) MCG/ACT Inhaler Inhale 2-4 puffs into the lungs every 4 hours as needed for shortness of breath / dyspnea or wheezing 0 Active naloxone (NARCAN) nasal spray Hughes 4 mg into one nostril alternating nostrils daily as needed for opioid reversal every 2-3 minutes until assistance arrives 0 Active VALACYCLOVIR HCL PO Take 500 mg by mouth daily as needed 0 Active DIPHENHYDRAMINE HCL PO Take 25-50 mg by mouth 4 times daily as needed (allergies) 0 Active albuterol (2.5 MG/3ML) 0.083% neb solution Take 1 vial by nebulization every 6 hours as needed for shortness of breath / dyspnea or wheezing 0 Active BIOTIN PO Take 5,000 mcg by mouth daily 0 Active VITAMIN D, CHOLECALCIFEROL, PO Take 10,000 Units by mouth daily (Takes 2 x 5000 unit tablet = 48204 unit dose) 0 Active Esomeprazole Magnesium (NEXIUM PO) Take 40 mg by mouth 2 times daily (before meals) 0 Active Pregabalin (LYRICA PO) Take 450 mg by mouth every evening (Takes 3 x 150mg = 450mg dose) 0 Active CETIRIZINE HCL PO Take 10 mg by mouth daily 0 Active tiotropium (SPIRIVA) 18 MCG capsule Inhale 18 mcg into the lungs 2 times daily 0 Active Polyethylene Glycol 3350 (MIRALAX PO) Take 1 Dose by mouth daily as needed 0 Active lidocaine (XYLOCAINE) 5 % ointment Apply topically 2 times daily as needed for moderate pain 0 Active Nutritional Supplements (DHEA PO) Take 1 tablet by mouth daily 0 Active Lurasidone HCl (LATUDA PO) Take 60 mg by mouth daily 0 Active oxyCODONE IR (ROXICODONE) 5 MG tabletIndications:S tress incontinence Take 1 tablet (5 mg) by mouth every 4 hours as needed for moderate to severe pain 25 tablet 0 10/14/2017 Active estradiol (ESTRACE VAGINAL) 0.1 MG/GM creamIndications:St ress incontinence Pea size on a finger to the vagina OHS 42.5 g 0 10/14/2017 Active HYDROcodone-acetami nophen (NORCO) 5-325 MG per tabletIndications:S tress incontinence Take 1 tablet by mouth every 6 hours as needed for moderate to severe pain 25 tablet 0 10/14/2017 Active methocarbamol (ROBAXIN) 750 MG tablet Take 1 tablet (750 mg) by mouth 4 times daily as needed for muscle spasms 15 tablet 0 10/08/2023 Active Encounters Date Type Department Care Team Description 10/08/2023 2:11 PM BOWLING BALL FINISHER - 10/08/2023 4:[address] [facility] Emergency Dept [address] [place] [address] Jasson Vizcarra MD Right knee pain, unspecified chronicity Discharge Disposition: Home or Self Care 10/08/2023 Travel from Last 3 Months Social History Tobacco Use Types Packs/Day Years Used Date Smoking Tobacco: Every Day Cigarettes 0.5 Smokeless Tobacco: Never Alcohol Use Standard Drinks/Week Comments No 0 (1 standard drink = 0.6 oz pur e alcohol) Adolescent Education Answer Date Record ed Getting School Help Needed Not on file 09/04 Sex and Gender Information Value Date Recorded Sex Assigned at Not on file Gender Identity Not on file Sexual Orientation Not on file Last Filed Vital Signs Vital Sign Reading Time Taken Comments Blood Pressure 133/86 10/08/2023 2:02 PM BOWLING BALL FINISHER Pulse 84 10/08/2023 2:02 PM BOWLING BALL FINISHER Temperature 36.8 ??C (98.2 ??F) 10/08/2023 2:02 PM CS T Respiratory Rate 20 10/08/2023 2:02 PM BOWLING BALL FINISHER Oxygen Saturation 98% 10/08/2023 2:02 PM BOWLING BALL FINISHER Inhaled Oxygen Concentration - - Weight 74.8 kg (165 lb) 05/14/2021 3:31 PM CDT Height 152.4 cm (5') 05/14/2021 3:31 PM CDT Body Mass Index 32.22 05/14/2021 3:31 PM CDT Plan of Treatment Health Maintenance Due Date Last Done Comments ADVANCE CARE PLANNING 1963 ANNUAL REVIEW OF HM ORDERS 1963 CT COLONOGRAPHY 1963 FIT 1963 FLEX SIG 1963 MAMMO SCREENING 1963 sDNA (Cologuard) 1963 COVID-19 Vaccine (#1) 1963 COLONOSCOPY 1973 COLORECTAL CANCER SCREENING 1973 HIV SCREENING 1978 HEPATITIS C SCREENING 1981 MEDICARE ANNUAL WELLNESS VISIT 1981 PAP 1984 LIPID 2008 LUNG CANCER SCREENING 07/23/2017 07/23/2016 RSV VACCINE ( & 60+) (1 - 1-dose 60+ series) 2023 INFLUENZA VACCINE (#1) 2023 2, 10/27/2022, 10/12/2021, Additional history exists PHQ-2 (once per calendar year) 2023 DTAP/TDAP/TD IMMUNIZATION (3 - Td or Tdap) 05/23/2027 05/23/2017, 08/13/2014, 04/22/1999 Pneumococcal Vaccine: Pediatrics (0 to 5 Years) and At-Risk Patients (6 to 64 Years) (3 of 3 - PPSV23 or PCV20) 2028 08/31/2019, 08/29/2017 ZOSTER IMMUNIZATION Completed 09/11/2021, 0 HPV IMMUNIZATION Aged Out No longer e ligible based on patient's age to complete this topic IPV IMMUNIZATION Aged Out No longer e ligible based on patient's age to complete this topic MENINGITIS IMMUNIZATION Aged Out No l onger eligible based on patient's age to complete this topic RSV MONOCLONAL ANTIBODY Aged Out No l onger eligible based on patient's age to complete this topic Medical Devices Implanted Type Area Music Instructor Device Identifier Shelf Expiration Date Model / Serial / Lot Device Tvt Obturator Laser [id number] Implanted:Qty: 1 on 10/14/2017 by Rain Carlin MD at [facility] Other N/A: [facility]- 04/27/2018 [id number] / / [id number] Procedures Procedure Name Priority Date/Time Associated Diagnosis Comments XR KNEE RIGHT 3 VIEWS STAT 10/08/2023 2:57 PM BOWLING BALL FINISHER from Last 3 Months Results * XR Knee Right 3 Views (10/08/2023 2:57 PM BOWLING BALL FINISHER) Anatomical Region Laterality Modality Thigh, Knee, Leg Right Computed Radiog chato 10/08/2023 2:57 PM BOWLING BALL FINISHER Impressions 10/08/2023 3:02 PM BOWLING BALL FINISHER IMPRESSION: Right total knee arthroplasty with longstem femoral and tibial components. Cortical thinning and irregularity of the anterior distal femoral diaphysis which may be chronic. Otherwise, no evidence of loosening. Small knee joint effusion and/or synovitis. Narrative 10/08/2023 3:02 PM BOWLING BALL FINISHER EXAM: XR KNEE RIGHT 3 VIEWS LOCATION: [facility] DATE: 10/08/2023 INDICATION: knee pain COMPARISON: None. Procedure Note Krishna Heath DO - 10/08/2023 EXAM: XR KNEE RIGHT 3 VIEWS LOCATION: [facility] DATE: 10/08/2023 INDICATION: knee pain COMPARISON: None. IMPRESSION: Right total knee arthroplasty with longstem femoral and tibialcomponents. Cortical thinning and irregularity of the anterior distalfemoral diaphysis which may be chronic. Otherwise, no evidence ofloosening. Small knee joint effusion and/or synovitis. Jasson Vizcarra MD IMG DIAGNOSTIC IMAGING ORDERABLES from Last 3 Months Care Teams Senior Property Accountant Relationship Specialty Start Date End Date Clemente Blackwell MD [facility] 1981. . [place] [address] PCP - General Family Medicine 10/08/23
--- OUTSIDE RECORDS SUMMARY | 2023-12-08 13:22 | XMS_ITS | Referral Summary ---
Author Name Unknown Organization [facility] Address [address] [place] [id number] Care Team Providers Care Vp Of Digital Marketing Name Role Phone Clemente Balckwell MD Primary Care Provider [phone] Encounters Date Type Department Care Team Description 10/08/2023 Travel 10/08/2023 2:11 PM DIRT SUPERVISOR - 10/08/2023 4:02 PM [facility] Emergency [facility] Emergency Dept [address] [place] [address] Jasson Vizcarra MD Right knee pain, unspecified chronicity Discharge Disposition: Home or Self Care from Last 3 Months Allergies Active Allergy Reactions Criticality Noted Date Comments Acyclovir Rash Low 07/18/2016 Adhesive Tape 07/18/2016 Amoxicillin 07/18/2016 Benzoin Blisters 10/13/2017 Cephalosporins Rash Low 10/13/2017 Gabapentin 05/17/2017 Soy Allergy 10/13/2017 [place] Rash Low 10/13/2017 Sulfamethoxazole-Trimethoprim GI Disturbance GI [...] wheezing 0 Active naloxone (NARCAN) nasal spray [place] 4 mg into one nostril alternating nostrils [...] (Takes 2 x 5000 unit tablet = 14885 unit dose) 0 Active Esomeprazole Magnesium (NEXIUM [...] muscle spasms 15 tablet 0 10/08/2023 Active Social History Tobacco Use Types Packs/Day Years [...] Comments Blood Pressure 133/86 10/08/2023 2:02 PM DIRT SUPERVISOR Pulse 84 10/08/2023 2:02 PM DIRT SUPERVISOR Temperature 36.8 ??C (98.2 ??F) 10/08/2023 2:02 PM CS T Respiratory Rate 20 10/08/2023 2:02 PM DIRT SUPERVISOR Oxygen Saturation 98% 10/08/2023 2:02 PM DIRT SUPERVISOR Inhaled Oxygen Concentration - - Weight 74.8 kg (165 lb) 05/14/2021 3:31 PM CDT Height 152.4 cm (5') 05/14/2021 3:31 PM CDT Body Mass Index 32.22 05/14/2021 3:31 PM CDT Plan of Treatment Not on file Medical Devices Implanted Type Area Slider Assembler Device Identifier Shelf Expiration Date Model / Serial / Lot Device Tvt Obturator Laser [id number] Implanted:Qty: 1 on 10/14/2017 by Rain Carlin MD at [facility] Other N/A: [facility] [facility]- 04/27/2018 [id number] / / [id number] Procedures Procedure Name Priority Date/Time Associated Diagnosis Comments XR KNEE RIGHT 3 VIEWS STAT 10/08/2023 2:57 PM DIRT SUPERVISOR from Last 3 Months Results * XR Knee Right 3 Views (10/08/2023 2:57 PM DIRT SUPERVISOR) Anatomical Region Laterality Modality Thigh, Knee, Leg Right Computed Radiog chato 10/08/2023 2:57 PM DIRT SUPERVISOR Impressions 10/08/2023 3:02 PM DIRT SUPERVISOR IMPRESSION: Right total knee arthroplasty with longstem femoral and tibial components. Cortical thinning and irregularity of the anterior distal femoral diaphysis which may be chronic. Otherwise, no evidence of loosening. Small knee joint effusion and/or synovitis. Narrative 10/08/2023 3:02 PM DIRT SUPERVISOR EXAM: XR KNEE RIGHT 3 VIEWS LOCATION: [facility] DATE: 10/08/2023 INDICATION: knee pain COMPARISON: None. Procedure Note Krishna Heath DO - 10/08/2023 EXAM: XR KNEE RIGHT 3 VIEWS LOCATION: [facility] DATE: 10/08/2023 INDICATION: knee pain COMPARISON: None. IMPRESSION: Right total knee arthroplasty with longstem femoral and tibialcomponents. Cortical thinning and irregularity of the anterior distalfemoral diaphysis which may be chronic. Otherwise, no evidence ofloosening. Small knee joint effusion and/or synovitis. Jasson Vizcarra MD IMG DIAGNOSTIC IMAGING ORDERABLES from Last 3 Months Care Teams Vp Of Digital Marketing Relationship Specialty Start Date End Date Clemente Blackwell MD [facility] [address] [place] [address] PCP - General Family Medicine 10/08/23
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
--- OUTSIDE RECORDS SUMMARY | 2023-12-08 13:22 | XMS_ITS | Encounter Summary ---
Author Name Unknown Organization [facility] Address [facility] [place] [address] Care Team Providers Care Professor Of Communication Name Role Phone Clemente Blackwell MD Primary Care Provider + [phone] Encounter Details Date Type Department Care Team (Latest Contact Info) Description 10/08/2023 Travel Social History Tobacco Use Types Packs/Day Years [...] on filedocumented in this encounter Care Teams Professor Of Communication Relationship Specialty Start Date End Date Clemente Blackwell MD [facility] [address] [place] [address] PCP - General Family Medicine 10/08/23 documented as of this encounter
--- OUTSIDE RECORDS SUMMARY | 2023-12-08 13:22 | XMS_ITS | Encounter Summary ---
Author Name Unknown Organization [facility] Address [facility] [place] [address] Care Team Providers Care Global Compensation Director Name Role Phone Clinic, [facility] Er Medical Primary Care Provider Mor Bautista MD Unavailable [phone] Clemente Blackwell MD Primary Care Provider [phone] Reason for Visit * Reason Onset Date Comments Appointment 05/12/2021 Encounter Details Date Type Department Care Team ([facility] Contact Info) Description 05/12/2021 [facility] [address] [address] None Appointment Social History Tobacco Use Types Packs/Day [...] encounter Miscellaneous Notes * Telephone Encounter - Tiffanie Georges - 05/12/2021 12:17 PM CDT [facility] Call Center Phone Message May a detailed message be left on voicemail: yes Reason for Call: Other: Pt requesting call back, pt stated she is returning a call to the clinic. Bath Mixer did not see any notes in the [...] filedocumented in this encounter Care Teams Global Compensation Director Relationship Specialty Start Date End Date Clinic, [facility] [address] [place] [address] PCP - General 06/03/17 10/07/23 Clemente Blackwell MD [facility] [address], [place] [address] PCP - General Family Medicine 10/08/23 Mor Bautista MD [address] [facility] [address] [place] [address] Assigned Infectious Disease Provider 06/12/21 06/25/22 documented as of this encounter
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
--- NOTE | 2023-12-09 13:20 | CRLHL7_ITS ---
For Patients: As a result of the Century Cures Act, medical imaging exams and procedure reports are released immediately into your electronic medical record. You may view this report before your referring provider. If you have questions, please contact your health care provider. BILATERAL SCREENING MAMMOGRAM WITH COMPUTER-AIDED DETECTION AND TOMOSYNTHESIS TECHNIQUE: CC and MLO views were obtained. These mammographic images have been obtained using full-field digital technique. These mammographic images were interpreted with the benefit of computer-aided detection. Breast Tomosynthesis was used in this interpretation. COMPARISON FILM: 01/09/20, 10/02/14, 11/07/15. FINDINGS: There are scattered areas of fibroglandular density IMPRESSION: There is no radiographic evidence for malignancy. ASSESSMENT: BI-RADS Category 1: Negative RECOMMENDATION: Routine screening mammogram in 1 year. A lay language report of this examination will be provided to the patient. Clemente Brandt M.D. Diagnostic Radiologist [email or web address] Transcribed: 4:57 p.tj alicia/Dictated by: Clemente Brandt MD @ 12/14/2023 11:43:00 AM (Electronically Signed)
== END 2023-12-09 13:09 | disposition home or self-care (01) ==
PROVIDERS: PCP Family Medicine; Visit Provider Family Medicine
DX: Z12.31 Encounter for screening mammogram for malignant neoplasm of breast (principal)
CPT/HCPCS: 77063; 77067

== ENCOUNTER 2023-12-15 10:11 | Emergency (ER) | payer OTHER, MEDICARE, SELFPAY ==
[2023-12-15 10:19] VITALS: BP 137/87; PULSE 86; RESP 18; TEMP 36.8; O2SAT 96; BMI 30.3
--- NOTE | 2023-12-15 10:31 | ED_ITS ---
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 SIG] buspirone 15 mg tablet 7.5 mg PO BID PRN Magic Mouthwash (Lidocaine/Benadryl/Maalox) 120 mL suspension 5 - 10 ml PO QID PRNQty: 120 0RF Rx Instructions: Lidocaine Viscous 2 % mucosal solution 40 mL; Maalox 200 mg-200 mg-20 mg/5 mL oral suspension 40 mL; Benadryl 12.5 mg/5 mL oral elixir 40 mL; Per 120 mL SWISH AND SPIT. MAY COMPOUND IF FIRST PRODUCT IS NOT AVAILABLE. hydroxyzine HCl 25 mg tablet 25 mg PO QID Qty: 20 0RF doxycycline hyclate 100 mg capsule 100 mg PO BID Qty: 14 0RF aspirin 81 mg tablet,delayed release (DR/EC) 81 mg PO QDAY Qty: 90 3RF meclizine [Dramamine (meclizine)] 25 mg tablet 25 mg PO Q8H PRN (Reason: dizziness) Qty: 30 1RF sumatriptan 5 mg/actuation spray,non-aerosol 5 mg intranasal ONCE PRN (Reason: migraine headache) Qty: 6 5RF Rx Instructions: 1-2 SPRAYS IN ONE NOSTRIL AT ONSET OF HEADACHE, MAY REPEAT Q2H PRN, MAX 4 SPRAYS/24 HRS tizanidine 4 mg tablet 4 mg PO Q8H PRN (Reason: muscle spasticity) Qty: 30 1RF ondansetron HCl 4 mg tablet 4 mg PO Q6H PRN (Reason: nausea and vomiting) Qty: 30 2RF fluoxetine [Prozac] 40 mg capsule 40 mg PO QAM Qty: 90 3RF valacyclovir 500 mg tablet 500 mg PO DAILY Qty: 90 3RF lamotrigine 200 mg tablet 200 mg PO BID Qty: 60 12RF cetirizine [Zyrtec] 10 mg tablet 10 mg PO QDAY Qty: 90 3RF albuterol sulfate [Ventolin HFA] 90 mcg/actuation HFA aerosol inhaler 2 puff inhalation Q6H PRN (Reason: shortness of breath or wheezing) Qty: 8.5 2RF rizatriptan 10 mg tablet 10 mg PO ONCE PRN (Reason: migraine headache) Qty: 18 2RF Rx Instructions: TAKE ONE TAB AT ONSET OF HEADACHE, MAY REPEAT Q2H PRN, MAX 30 MG/24 HRS, must last a month omeprazole 40 mg capsule,delayed release(DR/EC) 40 mg PO QDAY Qty: 30 5RF acetaminophen 650 mg tablet extended release 1,300 mg PO .Every 8 Hours Qty: 180 12RF atorvastatin 40 mg tablet 40 mg PO DAILY Qty: 90 1RF pregabalin 300 mg capsule 300 mg PO BID Qty: 60 2RF furosemide [Lasix] 40 mg tablet 40 mg PO QAM Qty: 30 5RF Follow Up/Referrals: Clemente Blackwell MD [Primary Care Provider] - Stand Alone Forms: [employer] Info Instructions
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
[2023-12-15 11:26] LABS: PCR FLU A Negative PCR FLU A (Negative); PCR FLU B Negative PCR FLU B (Negative); PCR RSV Negative PCR RSV (Negative); SARS PCR* Negative SARS-CoV-2 (Negative)
== END 2023-12-15 12:28 | disposition home or self-care (01) ==
PROVIDERS: Emergency Provider Family Medicine; PCP Family Medicine
DX: M54.50 Low back pain, unspecified (principal); S16.1XXA Strain of muscle, fascia and tendon at neck level, initial encounter; V43.62XA Car passenger injured in collision with other type car in traffic accident, initial encounter
CPT/HCPCS: 71046; 72040; 72100; 73030; 73560; 87631; 99284

== ENCOUNTER 2024-03-01 08:57 | Outpatient (CLI) | payer MEDICARE, OTHER, SELFPAY ==
--- NOTE | 2024-03-01 09:15 | XR_ITS ---
Patient: FARHEEN PRECIADO Facility:?[facility] Patient ID:?[id number] Site Patient ID:?[id number]. Site :?[id number] Study:?XRay-Spine LUMBAR 4 VIEW-03/01/2024 9:44:36 AM Ordering Physician:PRERNA Final Report: INDICATION: Lumbar pain/radiculopathy TECHNIQUE: 4-view lumbar spine. COMPARISON: 12.15.23 FINDINGS: Disc space narrowing and spurring L2-3 with discogenic sclerosis, similar to the prior study. No vertebral body compression fracture. Postop changes of the soft tissues. Neurostimulator wires. There is no instability with flexion or extension. IMPRESSION: No instability with flexion or extension. Degenerative disc disease L2-3. Facet degeneration lower lumbar spine. Dictated by Clemente Brandt MD @ 03/01/2024 10:12:35 AM Signed by:?Clemente Brandt MD @03/01/2024 10:12:35 AM (Electronic Signature)
== END 2024-03-01 08:58 | disposition home or self-care (01) ==
LOC: RAD 08:58
PROVIDERS: PCP Family Medicine; Visit Provider Neurological Surgery
DX: M54.16 Radiculopathy, lumbar region (principal); M51.36 Other intervertebral disc degeneration, lumbar region
CPT/HCPCS: 72110

== ENCOUNTER 2024-03-05 10:31 | Emergency (ER) | payer MEDICARE, OTHER, SELFPAY ==
[2024-03-05 10:36] VITALS: BP 135/82; PULSE 83; RESP 12; TEMP 36.9; O2SAT 94; BMI 29.3
--- NOTE | 2024-03-05 10:42 | ED_ITS ---
HPI - General Adult General Time Seen by Provider: 10:43 Date Seen: 03/05/24 Chief complaint: Cough Stated complaint: flu symptoms Time Seen by Provider: 03/05/24 10:32 Source: patient, RN notes reviewed and old records reviewed Mode of arrival: ambulatory Limitations: no limitations History of Present Illness HPI narrative: 58-year-old female who presents today with flu-like symptoms. This been going on for 1 month. Runny nose, eye drainage. No fevers. Patient with a history of chronic sinus problems as well as anxiety, bipolar disorder, prior CVA, COPD. Patient notes nasal congestion with difficulty clearing her sinuses, also cough for which she has taken multiple cough medications with minimal relief. Some generalized chest pain which is been constant since yesterday, denies nausea, vomiting, diarrhea but admits to decrease fluid intake and decreased appetite. Has an inhaler at home that she uses. Related Data Home Medications Medication Instructions Recorded Confirmed cholecalciferol (vitamin D3) 125 5,000 unit PO DAILY 06/07/22 12/23/23 mcg (5,000 unit) tablet cyanocobalamin (vitamin B-12) 5,000 mcg PO DAILY 06/07/22 12/23/23 2,500 mcg tablet polyethylene glycol 3350 17 17 g PO QDAY PRN 11/08/22 12/23/23 gram/dose oral powder oxycodone 10 mg tablet 10 mg PO QID PRN 03/08/23 12/23/23 cyclosporine 0.05 % eye drops in a 1 drp ophthalmic (eye) QDAY 12/23/23 12/23/23 dropperette (Restasis) ropinirole 1 mg tablet 2 mg PO QHS 12/23/23 12/23/23 Previous Rx's Medication Instructions Recorded diclofenac sodium 1 % topical gel 2 g topical QID #100 grams 08/23/22 hydrocortisone 1 % topical cream 1 applic topical BID-QID PRN 09/16/22 (Anti-Itch (hydrocortisone)) itching #28.35 grams magnesium oxide 400 mg (241.3 mg 400 mg PO QDAY #90 tabs 12/27/22 magnesium) tablet sumatriptan 5 mg/actuation nasal 5 mg intranasal ONCE PRN migraine 02/11/23 spray headache #6 ea tizanidine 4 mg tablet 4 mg PO Q8H PRN muscle spasticity 02/28/23 #30 tabs bupropion HCl 300 mg 24 hr tablet, 300 mg PO QAM #90 tabs 04/04/23 extended release ondansetron HCl 4 mg tablet 4 mg PO Q6H PRN nausea and 04/05/23 vomiting #30 tabs fluoxetine 40 mg capsule (Prozac) 40 mg PO QAM #90 caps 05/30/23 valacyclovir 500 mg tablet 500 mg PO DAILY cold sores #90 tabs 05/30/23 cetirizine 10 mg tablet (Zyrtec) 10 mg PO QDAY #90 tabs 06/30/23 lamotrigine 200 mg tablet 200 mg PO BID #60 tabs 06/30/23 rizatriptan 10 mg tablet 10 mg PO ONCE PRN migraine 07/06/23 headache #18 tabs acetaminophen 650 mg 1,300 mg (2 x 650 mg) PO .Every 8 09/03/23 tablet,extended release Hours #180 tabs hydroxyzine HCl 25 mg tablet 25 mg PO QID #20 tabs 09/17/23 atorvastatin 40 mg tablet 40 mg PO DAILY #90 tabs 09/28/23 doxycycline hyclate 100 mg capsule 100 mg PO BID #14 caps 10/28/23 furosemide 40 mg tablet (Lasix) 40 mg PO QAM #30 tabs 10/31/23 Magic Mouthwash 5 - 10 ml PO QID PRN mouth pain 12/23/23 (Lidocaine/Benadryl/Maalox) 120 mL #120 mL suspension benzonatate 100 mg capsule 100 mg PO TID PRN cough #30 caps 12/23/23 buspirone 15 mg tablet 7.5 mg (1/2 x 15 mg) PO BID PRN 12/23/23 anxiety #30 tabs meclizine 25 mg tablet (Dramamine 25 mg PO Q8H PRN dizziness #30 tabs 12/23/23 (meclizine)) triamcinolone acetonide 0.1 % 1 applic topical BID #453.6 grams 12/23/23 topical cream prednisone 50 mg tablet 50 mg PO QDAY #5 tabs 12/26/23 pregabalin 300 mg capsule 300 mg PO BID #60 caps 12/26/23 quetiapine 100 mg tablet 200 mg (2 x 100 mg) PO QHS sleep 01/25/24 #180 tabs aspirin 81 mg tablet,delayed 81 mg PO QDAY #90 tabs 02/07/24 release omeprazole 40 mg capsule,delayed 40 mg PO QDAY #90 caps 02/23/24 release albuterol sulfate 90 mcg/actuation 2 puff inhalation Q6H PRN 02/28/24 aerosol inhaler (Ventolin HFA) shortness of breath or wheezing #8.5 grams budesonide-formoterol HFA 160 2 puff inhalation BID #10.2 grams 02/28/24 mcg-4.5 mcg/actuation aerosol inhaler (Symbicort) nirmatrelvir 300 mg (150 mg See Rx Instructions PO .COMPLEX 03/05/24 x2)-ritonavir 100 mg tablet,dose #30 ea pack (Paxlovid) prednisone 20 mg tablet 20 mg PO BID #10 tabs 03/05/24 Allergies Allergy/AdvReac Type Severity Reaction Status Date / Time acyclovir Allergy Mild rash Verified 12/23/23 11:31 shingles like benzoin Allergy Mild rash, Verified 12/23/23 11:31 blisters, itching Cephalosporins Allergy Mild Rash Verified 12/23/23 11:31 penicillin V Allergy Mild Rash Verified 12/23/23 11:31 adhesive Allergy Unknown contact Verified 12/23/23 11:31 dermatitis to tape amoxicillin Allergy Unknown Rash Verified 12/23/23 11:31 baclofen Allergy Unknown Rash Verified 12/23/23 11:31 cefaclor Allergy Unknown Rash Verified 12/23/23 11:31 chlorhexidine Allergy Unknown contact Verified 12/23/23 11:31 dermatitis fentanyl Allergy Unknown Hallucinati Verified 12/23/23 11:31 ng gabapentin Allergy Unknown muscular Verified 12/23/23 11:31 twitch, slurred speech nortriptyline Allergy Unknown Palpitation Verified 12/23/23 11:31 s NSAIDS (Non-Steroidal Allergy Unknown gastric Verified 12/23/23 11:31 Anti-Inflamma bypass silver Allergy Unknown contact Verified 12/23/23 11:31 dermatitis Milk solids Allergy Intermediate Vomiting Uncoded 12/23/23 11:31 RACHEL Allergy Mild rash Uncoded 12/23/23 11:31 needing early removal Pollen Allergy Unknown runny nose Uncoded 12/23/23 11:31 Soy Allergy Allergy Unknown Uncoded 12/23/23 11:31 Sulfamethoxazole / Allergy Unknown nausea, GI Uncoded 12/23/23 11:31 trimethoprim upset dermbond AdvReac Unknown contact Uncoded 12/23/23 11:31 dermatitis PFSH [facility] Medical History 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) ?I69.398 - Other sequelae of cerebral infarction (ICD-10) ?H54.7 - Unspecified visual loss (ICD-10) GERD (gastroesophageal reflux disease) ?K21.9 - Gastro-esophageal reflux disease without esophagitis (ICD-10) History of skin cancer ?Z85.828 - Personal history of other malignant neoplasm of skin (ICD-10) ELLEN (generalized anxiety disorder) ?F41.1 - Generalized anxiety disorder (ICD-10) Migraine ?G43.909 - Migraine, unspecified, not intractable, without status migrainosus (ICD-10) Polypharmacy ?Z79.899 - Other termite treater helper (current) drug therapy (ICD-10) Herpes labialis ?B00.1 - Herpesviral vesicular dermatitis (ICD-10) Restless legs syndrome ?G25.81 - Restless legs syndrome (ICD-10) Pyogenic arthritis of left shoulder region (03/25/21) ?M00.9 - Pyogenic arthritis, unspecified (ICD-10) Posttraumatic stress disorder ?F43.10 - Post-traumatic stress disorder, unspecified (ICD-10) Nicotine dependence ?F17.200 - Nicotine dependence, unspecified, uncomplicated (ICD-10) History of cerebrovascular accident ?Z86.73 - Personal history of transient ischemic attack (TIA), and cerebral infarction without residual deficits (ICD-10) Fibromyalgia ?M79.7 - Fibromyalgia (ICD-10) Cyclothymic disorder ?F34.0 - Cyclothymic disorder (ICD-10) Continuous opioid dependence (08/27/16) ?F11.20 - Opioid dependence, uncomplicated (ICD-10) Chronic obstructive pulmonary disease ?J44.9 - Chronic obstructive pulmonary disease, unspecified (ICD-10) Chronic neck pain ?M54.2 - Cervicalgia (ICD-10) ?G89.29 - Other chronic pain (ICD-10) Chronic back pain ?M54.9 - Dorsalgia, unspecified (ICD-10) ?G89.29 - Other chronic pain (ICD-10) Cerebral arteriosclerosis with history of previous cerebrovascular accident ?I67.2 - Cerebral atherosclerosis (ICD-10) ?Z86.73 - Personal history of transient ischemic attack (TIA), and cerebral infarction without residual deficits (ICD-10) Bipolar II disorder ?F31.81 - Bipolar II disorder (ICD-10) Ataxia due to cerebrovascular disease ?I67.9 - Cerebrovascular disease, unspecified (ICD-10) ?R27.0 - Ataxia, unspecified (ICD-10) Allergic rhinitis ?J30.9 - Allergic rhinitis, unspecified (ICD-10) Surgical History Status post trigger finger release (08/13/23) ?Z98.890 - Other specified postprocedural states (ICD-10) History of carpal tunnel surgery of right wrist (07/2023) ?Z98.890 - Other specified postprocedural states (ICD-10) Status post insertion of spinal cord stimulator ?Z96.89 - Presence of other specified functional implants (ICD-10) History of tubal ligation ?Z98.51 - Tubal ligation status (ICD-10) History of total hysterectomy with bilateral salpingo-oophorectomy (BSO) ?Z90.710 - Acquired absence of both cervix and uterus (ICD-10) ?Z90.722 - Acquired absence of ovaries, bilateral (ICD-10) ?Z90.79 - Acquired absence of other genital organ(s) (ICD-10) History of spinal surgery ?Z98.890 - Other specified postprocedural states (ICD-10) History of sinus surgery ?Z98.890 - Other specified postprocedural states (ICD-10) History of nevus excision ?Z98.890 - Other specified postprocedural states (ICD-10) ?Z87.2 - Personal history of diseases of the skin and subcutaneous tissue (ICD-10) History of neck surgery ?Z98.890 - Other specified postprocedural states (ICD-10) History of mastopexy ?Z98.890 - Other specified postprocedural states (ICD-10) History of left shoulder replacement ?Z96.612 - Presence of left artificial shoulder joint (ICD-10) History of gastric bypass (1999) ?Z98.84 - Bariatric surgery status (ICD-10) History of foot surgery ?Z98.890 - Other specified postprocedural states (ICD-10) History of cholecystectomy ?Z90.49 - Acquired absence of other specified parts of digestive tract (ICD- 10) History of carpal tunnel release of both wrists (2017) ?Z98.890 - Other specified postprocedural states (ICD-10) History of bilateral cataract extraction ?Z98.41 - Cataract extraction status, right eye (ICD-10) ?Z98.42 - Cataract extraction status, left eye (ICD-10) History of arthroplasty of both knees ?Z96.653 - Presence of artificial knee joint, bilateral (ICD-10) History of abdominoplasty ?Z98.890 - Other specified postprocedural states (ICD-10) Family History Family/Other Breast cancer Lung cancer Father Cancer Coronary artery disease Sister Congenital heart defect Mother Pancreatic cancer, Onset Age: 60 Social History Narrative: medical marijuana use chronic narcotic use tobacco use What is your current living situation?: I presently have a place to live Problems where you live: pests, such as bugs, ants, or mice, mold, carbon monoxide detectors missing or not working and other Problems where you live details: Heating issues In the past 12 months, utilities in danger of being shut off: yes In past 12 months, lack of transportation kept you from medical appts, meetings, work, or getting things needed for daily living: yes In the past 12 mos, have been you worried that your food would run out before you had money to buy more?: often true In the past 12 mos, the food you bought just didn't last and you didn't have money to buy more?: often true Smoking Status: Current every day smoker What tobacco products do you use: cigarettes Smoking quit date/years: <= 15 years ago Do you use any of these nicotine containing products: E-Cigarettes and Vaping Products Second hand tobacco smoke exposure: No How often do you have a drink containing alcohol: never How often do you have six or more drinks on one occasion: Never AUDIT-C Alcohol total score: 0 Non-prescribed substance use: marijuana (any form) Caffeine: Yes How often does anyone, including family, friends and others, physically hurt you : never How often does anyone, including family, friends and others, insult or talk down to you: fairly often How often does anyone, including family, friends and others, threaten you with harm: fairly often How often does anyone, including family, friends and others, scream or curse at you: frequently Little interest or pleasure in doing things: nearly every day Feeling down, depressed, or hopeless: more than half the days Are you using contraception or practicing any form of control: No service: No Exam Narrative: Exam Narrative: General: Well-developed and well-nourished, no acute distress Head: Atraumatic and normocephalic Eyes: Pupils are equal reactive, extraocular motions intact, conjunctiva clear ENT: External nose and ears are normal, posterior pharynx without erythema or exudate Neck: No midline cervical tenderness, full spontaneous range of motion the neck, trachea midline, no adenopathy Heart: Regular rate and rhythm no murmurs or thrills Lungs: Clear to auscultation bilaterally without wheezes or crackles Abdomen: Soft, nontender, nondistended with active bowel sounds Musculoskeletal: No tenderness, deformity, or edema Neurologic: Awake, alert, and oriented x3, no gross focal neurologic deficits, cranial nerves intact as tested Psych: Mood and affect are appropriate Skin: No rashes Const: Vital Signs, click to edit/add: Vital Signs - 24 hr 03/05/24 10:36 Temperature 98.5 F Pulse Rate [Pulse Oximeter] 83 Respiratory Rate 12 Blood Pressure [Ri ght Upper Arm] 135/82 Pulse Oximetry 94 Oxygen Delivery Me thod Room Air Course Course ED Course: Patient seen examined, prior records are reviewed. Patient presents today with runny nose and cough which have been bothering her for about a month, also generalized anterior chest pain since yesterday. On exam, no hypoxia, respiratory distress, or tachycardia. Diffuse crackles throughout all lung jhaveri which may represent fibrosis or scarring from COPD, no wheezes. No lower extremity edema but consider congestive heart failure as source of patient's ongoing cough. Labs and chest x-ray ordered, DuoNeb and Decadron given as well. Reevaluation(s) Time of Reevaluation #1: 11:07 Reevaluation #1: Chest x-ray independently interpreted by me with spinal fixation hardware, hyperinflation, no acute infiltrates or effusion. Time of Reevaluation #2: 12:37 Reevaluation #2: Labs ordered and independently interpreted by me with normal basic metabolic panel, normal BNP, negative troponin, COVID positive. Patient will be started on prednisone for likely COPD exacerbation in associated with this. Vital Signs Vital signs: Initial Vital Signs Temperature 98.5 F 03/05/24 10:36 Temperature Source Temporal Artery Scan 03/05/24 10:36 Pulse Rate 83 03/05/24 10:36 Pulse Rhythm Regular 03/05/24 10:36 Respiratory Rate 12 03/05/24 10:36 Blood Pressure 135/82 03/05/24 10:36 Blood Pressure Mean 99 03/05/24 10:36 Blood Pressure Position Sitting 03/05/24 10:36 Pulse Oximetry 94 03/05/24 10:36 Oxygen Delivery Method Room Air 03/05/24 10:36 Vital Signs Temperature 98.5 F 03/05/24 10:36 Pulse Rate 83 03/05/24 10:36 Respiratory Rate 12 03/05/24 10:36 Blood Pressure 135/82 03/05/24 10:36 Pulse Oximetry 94 03/05/24 10:36 Oxygen Delivery Method Room Air 03/05/24 10:36 Temperature 98.5 F 03/05/24 10:36 Pulse Rate 83 03/05/24 10:36 Respiratory Rate 12 03/05/24 10:36 Blood Pressure 135/82 03/05/24 10:36 Pulse Oximetry 94 03/05/24 10:36 Oxygen Delivery Method Room Air 03/05/24 10:36 Medications Administered Medications: Discontinued Medications Generic Name Dose Route Start Last Admin Trade Name Freq PRN Reason Stop Dose Admin Albuterol/Ipratropium 1 neb 03/05/24 10:53 03/05/24 11:12 Iprat-Albut 0.5-2.5 Mg/3 Ml Neb IH 03/05/24 10:54 1 neb ONCE ONE Administration Dexamethasone 10 mg 03/05/24 10:53 03/05/24 11:12 Dexamethasone 10 Mg/Ml Inj IVP 03/05/24 10:54 10 mg ONCE ONE Administration Medical Decision Making Lab Data Labs: Lab Results 03/05/24 03/05/24 Range/Units 11:13 11:24 Sodium 138 (135-149) mmol/L Potassium 4.1 (3.6-5.1) mmol/L Chloride 108 (96-114) mmol/L Carbon Dioxide 25 (20-32) mmol/L Anion Gap 5 L (7-15) mEq/L BUN 15 (7-30) mg/dL Creatinine 0.6 (0.5-1.5) mg/dL Estimated Creat Clear 103.53 Estimated GFR 103 ml/min Glucose 99 (60-115) mg/dL Calcium 9.1 (8.4-10.6) mg/dL NT-Pro-B Natriuret Pep 124 pg/mL SARS-CoV-2 (PCR) POSITIVE SARS-CoV-2 A (Negative) Influenza Type A (PCR) Negative PCR FLU A (Negative) Influenza Type B (PCR) Negative PCR FLU B (Negative) RSV (PCR) Negative PCR RSV (Negative) POC Troponin I 0.02 (0.01-0.04) ng/ml ECG Data Attestation: I personally reviewed and interpreted this ECG as follows: Prior ECG tracings: not available for review Interpretation: Performed 10:47 a.m. independently interpreted by me normal sinus rhythm rate 72, no acute ST elevations or depressions, normal intervals, normal axis, IA 152, QTC 418. Compared to prior of July 2022 no acute changes. Discharge Plan Discharge Clinical Impression: COVID, Chronic obstructive pulmonary disease Instructions: COPD (Chronic Obstructive Pulmonary Disease) (DC), COVID-19 (Coronavirus Disease 2019) (ED) Additional Instructions: Stop taking atorvastatin while taking Paxlovid Activity Level: No Restrictions Discharge Diet: Regular Prescriptions: New prednisone 20 mg tablet 20 mg PO BID Qty: 10 0RF Paxlovid 300 mg (150 mg x 2)-100 mg tablets,dose pack See Rx Instructions .ROUTE .COMPLEX Qty: 30 0RF Rx Instructions: take TWO 150 mg tablets of nirmatrelvir with ONE 100 mg tablet of ritonavir twice daily for 5 days No Action cholecalciferol (vitamin D3) 125 mcg (5,000 unit) tablet 5,000 unit PO DAILY cyanocobalamin (vitamin B-12) 2,500 mcg tablet 5,000 mcg PO DAILY hydrocortisone [Anti-Itch (HC)] 1 % cream 1 applic topical BID-QID PRN (Reason: itching) Qty: 28.35 0RF oxycodone 10 mg tablet 10 mg PO QID PRN bupropion HCl 300 mg tablet extended release 24 hr 300 mg PO QAM Qty: 90 3RF diclofenac sodium 1 % gel 2 g topical QID Qty: 100 2RF Hold Instructions: pt holding polyethylene glycol 3350 17 gram/dose powder 17 g PO QDAY PRN magnesium oxide 400 mg (241.3 mg magnesium) tablet 400 mg PO QDAY Qty: 90 3RF cyclosporine [Restasis] 0.05 % dropperette 1 drp ophthalmic (eye) QDAY Patient Comments: [NO ORIGINAL SIG] ropinirole 1 mg tablet 2 mg PO QHS Rx Instructions: 1 Qpm and 1 QHS triamcinolone acetonide 0.1 % cream 1 applic topical BID Qty: 453.6 0RF Magic Mouthwash (Lidocaine/Benadryl/Maalox) 120 mL suspension 5 - 10 ml PO QID PRN (Reason: mouth pain) Qty: 120 0RF Rx Instructions: Lidocaine Viscous 2 % mucosal solution 40 mL; Maalox 200 mg-200 mg-20 mg/5 mL oral suspension 40 mL; Benadryl 12.5 mg/5 mL oral elixir 40 mL; Per 120 mL SWISH AND SPIT. MAY COMPOUND IF FIRST PRODUCT IS NOT AVAILABLE. buspirone 15 mg tablet 7.5 mg PO BID PRN (Reason: anxiety) Qty: 30 5RF meclizine [Dramamine (meclizine)] 25 mg tablet 25 mg PO Q8H PRN (Reason: dizziness) Qty: 30 1RF benzonatate 100 mg capsule 100 mg PO TID PRN (Reason: cough) Qty: 30 1RF hydroxyzine HCl 25 mg tablet 25 mg PO QID Qty: 20 0RF doxycycline hyclate 100 mg capsule 100 mg PO BID Qty: 14 0RF sumatriptan 5 mg/actuation spray,non-aerosol 5 mg intranasal ONCE PRN (Reason: migraine headache) Qty: 6 5RF Rx Instructions: 1-2 SPRAYS IN ONE NOSTRIL AT ONSET OF HEADACHE, MAY REPEAT Q2H PRN, MAX 4 SPRAYS/24 HRS tizanidine 4 mg tablet 4 mg PO Q8H PRN (Reason: muscle spasticity) Qty: 30 1RF ondansetron HCl 4 mg tablet 4 mg PO Q6H PRN (Reason: nausea and vomiting) Qty: 30 2RF fluoxetine [Prozac] 40 mg capsule 40 mg PO QAM Qty: 90 3RF valacyclovir 500 mg tablet 500 mg PO DAILY Qty: 90 3RF lamotrigine 200 mg tablet 200 mg PO BID Qty: 60 12RF cetirizine [Zyrtec] 10 mg tablet 10 mg PO QDAY Qty: 90 3RF rizatriptan 10 mg tablet 10 mg PO ONCE PRN (Reason: migraine headache) Qty: 18 2RF Rx Instructions: TAKE ONE TAB AT ONSET OF HEADACHE, MAY REPEAT Q2H PRN, MAX 30 MG/24 HRS, must last a month acetaminophen 650 mg tablet extended release 1,300 mg PO .Every 8 Hours Qty: 180 12RF atorvastatin 40 mg tablet 40 mg PO DAILY Qty: 90 1RF furosemide [Lasix] 40 mg tablet 40 mg PO QAM Qty: 30 5RF pregabalin 300 mg capsule 300 mg PO BID Qty: 60 5RF prednisone 50 mg tablet 50 mg PO QDAY Qty: 5 0RF quetiapine 100 mg tablet 200 mg PO QHS Qty: 180 1RF aspirin 81 mg tablet,delayed release (DR/EC) 81 mg PO QDAY Qty: 90 2RF omeprazole 40 mg capsule,delayed release(DR/EC) 40 mg PO QDAY Qty: 90 1RF budesonide-formoterol [Symbicort] 160-4.5 mcg/actuation HFA aerosol inhaler 2 puff inhalation BID Qty: 10.2 8RF albuterol sulfate [Ventolin HFA] 90 mcg/actuation HFA aerosol inhaler 2 puff inhalation Q6H PRN (Reason: shortness of breath or wheezing) Qty: 8.5 8RF Follow Up/Referrals: Clemente Blackwell MD [Primary Care Provider] -
--- NOTE | 2024-03-05 10:53 | XR_ITS ---
Patient: FARHEEN PRECIADO Facility:?[facility] Patient ID:?[id number] Site Patient ID:?[id number]. Site :?1965 Study:?XRay-Chest 2 VIEW-03/05/2024 11:11:21 AM Ordering Physician:?DR. REDDY Final Report: INDICATION: Cough and dyspnea. TECHNIQUE: Chest 2 views. COMPARISON: April 04, 2023. FINDINGS: Cardiovascular and mediastinum: Heart size is normal. Unremarkable mediastinum. Lungs and pleural spaces: Lungs are clear. No sign of infiltrate or mass. No sign of pleural effusion. No pneumothorax. Bones and soft tissues: No significant findings. Intrathecal stimulator device again demonstrated. IMPRESSION: No acute findings and no significant changes from the prior exam. Dictated by Kun Huerta MD @ 03/05/2024 11:36:42 AM Signed by:?Kun Huerta MD @03/05/2024 11:36:42 AM (Electronic Signature)
--- OUTSIDE RECORDS SUMMARY | 2024-03-05 11:10 | XMS_ITS | Clinical Summary ---
Author Name Unknown Organization [facility] Address [address] [place] [address] Care Team Providers Care Front End Specialist Name Role Phone Clemente Blackwell MD Primary Care Provider [phone] Allergies Active Allergy Reactions Criticality Noted Date Comments Acyclovir Rash Low 07/18/2016 Adhesive Tape 07/18/2016 Amoxicillin 07/18/2016 Benzoin Blisters 10/13/2017 Cephalosporins Rash Low 10/13/2017 Gabapentin 05/17/2017 Soy Allergy 10/13/2017 Zander Rash Low 10/13/2017 Sulfamethoxazole-Trimethoprim GI Disturbance GI [...] wheezing 0 Active naloxone (NARCAN) nasal spray [place] 4 mg into one nostril alternating nostrils [...] (Takes 2 x 5000 unit tablet = 07265 unit dose) 0 Active Esomeprazole Magnesium (NEXIUM [...] Comments Blood Pressure 133/86 10/08/2023 2:02 PM STRANNER Pulse 84 10/08/2023 2:02 PM STRANNER Temperature 36.8 ??C (98.2 ??F) 10/08/2023 2:02 PM CS T Respiratory Rate 20 10/08/2023 2:02 PM STRANNER Oxygen Saturation 98% 10/08/2023 2:02 PM STRANNER Inhaled Oxygen Concentration - - Weight 74.8 [...] 1965 MAMMO SCREENING 1965 sDNA (Cologuard) 1965 COLONOSCOPY 1973 COLORECTAL CANCER SCREENING 1973 HIV SCREENING 1978 HEPATITIS C SCREENING 1981 MEDICARE ANNUAL WELLNESS VISIT 1981 PAP 1984 LIPID 2003 GLUCOSE 04/15/2012 04/15/2009 LUNG CANCER SCREENING 07/23/2017 07/23/2016 RSV VACCINE ( & 60+) (1 - 1-dose 60+ series) 2023 COVID-19 Vaccine (1 - 2022-24 season) 2023 INFLUENZA VACCINE (#1) 2023 2, 10/27/2022, [...] this topic Medical Devices Implanted Type Area Allied Health Instructor Device Identifier Shelf Expiration Date Model / Serial / Lot Device Tvt Obturator Laser [id number] Implanted:Qty: 1 on 10/14/2017 by Rain Carlin MD at [facility] Other N/A: [facility] [employer]- 04/27/2018 [id number] / / [id number] Care Teams Front End Specialist Relationship Specialty Start Date End Date Clemnete Blackwell MD [facility] [address] [place] [address] PCP - General Family Medicine 10/08/23
--- OUTSIDE RECORDS SUMMARY | 2024-03-05 11:10 | XMS_ITS | Referral Summary ---
Author Name Unknown Organization [facility] Address [address] [place] [id number] Care Team Providers Care Biofuels Technology Development Manager Name Role Phone Clemente Blackwell MD Primary [...] wheezing 0 Active naloxone (NARCAN) nasal spray Miller 4 mg into one nostril alternating nostrils [...] (Takes 2 x 5000 unit tablet = 92936 unit dose) 0 Active Esomeprazole Magnesium (NEXIUM [...] Comments Blood Pressure 133/86 10/08/2023 2:02 PM SINGE MACHINE OPERATOR Pulse 84 10/08/2023 2:02 PM SINGE MACHINE OPERATOR Temperature 36.8 ??C (98.2 ??F) 10/08/2023 2:02 PM CS T Respiratory Rate 20 10/08/2023 2:02 PM SINGE MACHINE OPERATOR Oxygen Saturation 98% 10/08/2023 2:02 PM SINGE MACHINE OPERATOR Inhaled Oxygen Concentration - - Weight 74.8 kg (165 lb) 05/14/2021 3:31 PM CDT Height 152.4 cm (5') 05/14/2021 3:31 PM CDT Body Mass Index 32.22 05/14/2021 3:31 PM CDT Plan of Treatment Not on file Medical Devices Implanted Type Area Chief Lock Operator Device Identifier Shelf Expiration Date Model / Serial / Lot Device Tvt Obturator Laser [id number] Implanted:Qty: 1 on 10/14/2017 by Rain Carlin MD at [facility] Other N/A: Formerly [facility], [facility]–[address] [facility]- 04/27/2018 [id number] / / [id number] Care Teams Biofuels Technology Development Manager Relationship Specialty Start Date End Date Clemente Blackwell MD [facility] [address] [place] [address] PCP - General Family Medicine 10/08/23
--- OUTSIDE RECORDS SUMMARY | 2024-03-05 11:10 | XMS_ITS | Encounter Summary ---
Author Name Unknown Organization [place] Address [facility] [place] [address] Care Team Providers Care Carbon Lamp Cleaner Name Role Phone Clinic, [facility] Primary Care Provider Mor Bautista MD Unavailable [phone] Clemente Blackwell MD Primary Care Provider [phone] Reason for Visit * Reason Onset Date Comments Appointment 05/12/2021 Encounter Details Date Type Department Care Team ([facility] Contact Info) Description 05/12/2021 [facility] [address] [address] None Appointment Social History Tobacco [...] - 05/12/2021 12:17 PM CDT [facility] Call Center Phone Message May a detailed message be left on voicemail: yes Reason for Call: Other: Pt requesting call back, pt stated she is returning a call to the clinic. Coppersmith Helper did not see any notes in the pt's chart to refer to. Pt stated she is being referred from [facility] for a staph infection in her shoulder, [...] on filedocumented in this encounter Care Teams Carbon Lamp Cleaner Relationship Specialty Start Date End Date Clinic, [facility] [address] [place] [address] PCP - General 06/03/17 10/07/23 Clemente Blackwell MD [facility] [address], [place] [address] PCP - General Family Medicine 10/08/23 Mor Bautista MD [address] [facility] [address] [place] [address] Assigned Infectious Disease Provider 06/12/21 06/25/22 documented as of this encounter
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
--- OUTSIDE RECORDS SUMMARY | 2024-03-05 11:11 | XMS_ITS | Encounter Summary ---
Author Name Unknown Organization [facility] Address [address] [address] Care Team Providers Care Cylinder Die Machine Operator Name Role Phone oJse Holden MD Primary Care Provider Encounter Details Date Type Department Care Team (Latest Contact Info) Description 03/06/2019 Consent for Procedure/Treatm ent [facility] Pain Management [address] [facility] [place], [place] [id number] Tony Pittman MD [address] [place] [address] INFORMED CONSENT BUPRENORPHINE TREATMENT Social [...] filedocumented in this encounter Care Teams Cylinder Die Machine Operator Relationship Specialty Start Date End Date Jose Holden MD [address] [place] [address] PCP - General Otolaryngology 12/14/17 documented as of this encounter
--- OUTSIDE RECORDS SUMMARY | 2024-03-05 11:11 | XMS_ITS | Encounter Summary ---
Author Name Unknown Organization [facility] Address [address], [place] [address] Care Team Providers Care Universal Grinder Set Up Operator Name Role Phone Jose Holden MD Primary Care Provider Encounter Details Date Type Department Care Team (Latest Contact Info) Description 02/06/2019 Consent for Procedure/Treatme nt [facility] [address] [place] [address] Tony Pittman MD [address] [place] [address] INFORMED CONSENT FOR TX/PROCEDURE Social [...] on filedocumented in this encounter Care Teams Universal Grinder Set Up Operator Relationship Specialty Start Date End Date Jose Holden MD [address] [place] [address] PCP - General Otolaryngology 12/14/17 documented as of this encounter
--- OUTSIDE RECORDS SUMMARY | 2024-03-05 11:11 | XMS_ITS ---
Author Name Unknown Organization [facility] Address [address] [place] [address] Care Team Providers Care Cashiers Supervisor Name Role Phone Unavailable Unavailable Unavailable Surgery Details Not on file Complications Check Surgery Details section. Procedure Estimated Blood Loss Check Surgery Details section. Procedure Findings Check Surgery Details section. Procedure Specimens Taken Check Surgery Details section.
--- OUTSIDE RECORDS SUMMARY | 2024-03-05 11:11 | XMS_ITS | Encounter Summary ---
Author Name Unknown Organization [facility] Address [address] [address] Care Team Providers Care Industrial Engineering Director Name Role Phone Jose Holden MD Primary Care Provider Encounter Details Date Type Department Care Team (Latest Contact Info) Description 08/14/2018 Consent for Procedure/Treatme nt [facility] [address] [facility] [place] [address] Tony Pittman MD [address] [place] [address] INFORMED CONSENT FOR TX/PROCEDURE Social [...] filedocumented in this encounter Care Teams Industrial Engineering Director Relationship Specialty Start Date End Date Jose Holden MD [address] [place] [address] PCP - General Otolaryngology 12/14/17 documented as of this encounter
--- OUTSIDE RECORDS SUMMARY | 2024-03-05 11:11 | XMS_ITS | Encounter Summary ---
Author Name Unknown Organization [facility] Address [address] [place] [address] Care Team Providers Care Cabinet And Trim Installer Name Role Phone Elsewhere, Pcp Primary Care Provider Unavailabl e Reason for Referral * MRI/CAT/PET Scan (Routine) - Authorized Specialty Diagnoses / Procedures Referred By Tanja baca Referred To Contact Radiology Diagnoses Painful Total Joint Arthroplasty Initial Procedures CT Shoulder Left without IV Contrast Kasie Pelaez P.A.-C., M.S. [address] [place] [phone] [facility] Referral ID Status Reason Start Date Expiration Date V isits Requested Visits Authorized [id number] Authorized 11/02/2023 11/01/2024 1 1 ING PRESS SETTER UP * Outpatient (Routine) - Closed Specialty Diagnoses / Procedures Referred By Tanja baca Referred To Contact Diagnoses Painful Total Joint Arthroplasty Initial Procedures DX Shoulder Left Ingrowth Series 5 Views Kasie Pelaez P.A.-C., M.S. [address] [place] [phone] [facility] Referral ID Status Reason Start Date Expiration Date Visits Re quested Visits Authorized [id number] Closed 11/02/2023 11/01/2024 1 1 ING PRESS SETTER UP Reason for Visit * Reason Onset Date Comments Appointment 11/02/2023 Encounter Details Date Type Department Care Team (Late st Contact Info) Description 11/02/2023 Clinical Communication Department of Orthopedic Surgery in [place], [place] [address] [place] [address] Cyrus Polk M.D. [address] [place] [address] Appointment Social History Tobacco Use Types Packs/Day [...] often do you attend chur ch or restorationism services? 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 Probable increased proximal humeral bone loss since 05/18/22. Narrative 11/07/2023 10:59 AM FORGING PRESS SETTER UP EXAM: ??DX SHOULDER LEFT INGROWTH SERIES 5 VIEWS Procedure Note Sonia Wesley M.D. 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 Probable increased proximal humeral bone loss since05/18/22. Kasie Arenas P.A.-C. M.S. IMG [facility] PROCEDURES documented in this encounter Visit Diagnoses Diagnosis Painful Total Joint Arthroplasty Initial- Primary Painful Total Joint Arthroplasty Initial documented in this encounter Additional Health Concerns Assessment Noted Time PHQ-9 Depression Total Score: 16 021 12:00 AM CDT documented as of this encounter Care Teams Cabinet And Trim Installer Relationship Specialty Start Date End Date Elsewhere, Pcp PCP - General Family Medicine 12/25/21 documented as of this encounter
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
--- OUTSIDE RECORDS SUMMARY | 2024-03-05 11:11 | XMS_ITS | Encounter Summary ---
Author Name Unknown [facility] Address [address], [place] [address] Care Team Providers Care Failure Analysis Engineer Name Role Phone Jose Holden MD Primary Care Provider Reason for Referral * Procedure/Equipment (Routine) - Closed Specialty Diagnoses / Procedures Referred By Tanja baca Referred To Contact Diagnoses Status post revision of total replacement of right knee Procedures Crutches, forearm, pair (E0110) Donald Medley MD [address] [phone] POS NOT ON FILE Referral ID Status Reason Start Date Expiration Date Visits Re quested Visits Authorized [id number] Closed 11/24/2022 05/23/2023 1 1 ERCIAL COLLECTOR * Procedure/Equipment (Routine) - Closed Specialty Diagnoses / Procedures Referred By Tanja baca Referred To Contact Diagnoses Status post revision of total replacement of right knee Procedures Bath/shower chair (E0240) Donald Medley MD [address] [facility] [address] [place] [address] POS NOT ON FILE Referral ID Status Reason Start Date Expiration Date Visits Re quested Visits Authorized [id number] Closed 11/24/2022 05/23/2023 1 1 ERCIAL COLLECTOR Reason for Visit * Reason Comments RASH ITCHING Medication Request Orders Needed Encounter Details Date Type Department Care Team (Late st Contact Info) Description 11/23/2022 Nurse Triage [facility] [address] [place] [address] Donald Medley MD [address] [facility] [address] [place] [phone] RASH; ITCHING; Medication Request; Orders Needed Social [...] AM CST Orders signed and faxed today. ERCIAL COLLECTOR * Paulina Mcdaniels RN - 11/24/2022 8:48 AM CST MD please address request #1 below. Orders were faxed to [facility] today. Please fax again with co-sign completed or order signed by MD to ensure proper insurance coverage with MD signature. ERCIAL COLLECTOR * Tejal Norman RN - 11/23/2022 10:45 AM CST Action: Input needed and New order Next Step: Review associated dx/order for accuracy and sign pended orders, if appropriate. and Route to ORTHO PN TRIAGE [[id number]] Specific Request(s): 1. Please advise if you want patient to remove waterproof dressing and start daily dry dressing changes with ROBBY wrap holding dressings in place OR leave Tegaderm in place and continue to monitor. Home care Nurse comes tomorrow 11/24/22 2. Patient requesting order for shower chair and forearm crutches. Orders pending. Fax to [facility] [phone] Spoke with patient, c/o widespread rash on [...] in hospital and report antinausea medication helps. Program Host recommend to continue OTC benadryl and anti-itch spray. Likely will defer any further medications to PCP, but will see if surgeon would like patient to remove surgical dressing. Program Host sent in antinausea medication to pharmacy per RN standing order. Advised patient PT is recommended and PCP office should be calling today or tomorrow to help coordinate. Per AVS from [facility], [facility] did call and speak with Dr. Blackwell's staff- they will reach out to patient on TuesdayNovember 23 to help coordinate outpatient therapy, if needed. Future Appointments Date Time Provider Department Center 12/02/2022 1:00 PM Donald Medley MD [facility] 12/31/2022 11:00 AM Donald Medley MD [facility] Reason for Disposition ??? Drug rash suspected and started taking new medicine within last 2 weeks (Exception: Antihistamine, eye drops, ear drops, decongestant or other OTC cough/cold medicines.) Protocols used: Rash or Redness - [id number] ERCIAL COLLECTOR * Kristel Wallis - 11/23/2022 10:06 AM [...] Have you been seen for this recently?: [Blowing Engineer/Appt Center: If yes, please include date and provider.] Is it okay to leave detailed message on your voicemail? Yes [Blowing Engineer/Appt Center: If this call is after 3 p.m., communicate to patient: If we are not able to get back to you by the end of the day and your symptoms worsen please contact the Careline] ERCIAL COLLECTOR documented in this encounter Plan of Treatment Not on file documented as of this encounter Visit Diagnoses Diagnosis Status post revision of total replacement of right knee- Primary Nausea and vomiting, unspecified vomiting type documented in this encounter Care Teams Failure Analysis Engineer Relationship Specialty Start Date End Date Jose Holden MD [address] [place] [id number] PCP - General Otolaryngology 12/14/17 documented as of this encounter
--- OUTSIDE RECORDS SUMMARY | 2024-03-05 11:11 | XMS_ITS | Encounter Summary ---
Author Name Unknown Organization [facility] Address [address], [place] [address] Care Team Providers Care Observatory Director Name Role Phone Jose Holden MD Primary Care Provider Encounter Details Date Type Department Care Team (Latest Contact Info) Description 12/26/2018 Consent for Procedure/Treatme [facility] Pain Management [address] [facility] [place] [address] Tony Pittman MD [address] [place] [address] CONSENT FOR PROCEDURE Social History [...] on filedocumented in this encounter Care Teams Observatory Director Relationship Specialty Start Date End Date Jose Holden MD [address] [place] [address] PCP - General Otolaryngology 12/14/17 documented as of this encounter
--- OUTSIDE RECORDS SUMMARY | 2024-03-05 11:11 | XMS_ITS ---
Author Name Unknown Organization [facility] Address [address] [place] [address] Care Team Providers Care Rescue Worker Name Role Phone Elsewhere, Pcp Primary Care Provider Unavailabl e Bariatrics Program Status:Enrolled (Active) Start date:08/22/2007 Enrollment date:08/22/2007 Current support & services provided:Pre-Op Related social determinants of health:Food Insecurity, Transportation Needs Continued Care and Services Coordination
--- OUTSIDE RECORDS SUMMARY | 2024-03-05 11:11 | XMS_ITS | Clinical Summary ---
Author Name Unknown Organization [facility] Address [address] [place] [address] Care Team Providers Care Planning Assistant Name Role Phone Elsewhere, Pcp Primary Care Provider Unavailabl e Source Comments Patient records contain information from all sites at [facility]. For routine questions regarding patient records, call [phone] during business hours, M-F 8:00 AM - 5:00 PM Central Time. Record requests for emergency care only can be directed to [phone] at any time.[facility] Allergies Active Allergy Reactions Criticality Noted Date [...] mouth at bedtime. 0 01/28/2022 Active multivit-min/iron/fo lic/ezn037 (HAIR, SKIN AND NAILS ADVANCED ORAL) Take [...] Overview: Added automatically from request for surgery [id number] Nicotine Dependence Unspecified 11/29/2017 Other Senior Living Current Drug Therapy 12/30/2016 Opioid Moderate Or [...] week 05/17/2022 How often do you attend [facility] or yazidism services? Patient declined 05/17/2022 Do you belong to any clubs o r organizations such as buddhism groups, unions, fraternal [...] Answer Date Recorded PHQ-2 Score 3 02/11/2021 [facility] [place] of Occupat ional Health - Occupational Stress [...] 1963 Hepatitis C Screening 1963 Mammogram 1963 Office Visit for Blood Pressure Check / Re-check 1963 Tobacco Cessation counseling 1963 Creatinine Level (Kidney Function Test) 06/18/2023 06/18/2022, 06/17/2022, 06/16/2022, Additional history exists Potassium Level 06/18/2023 06/18/2022, 05/29, 06/16/2022, Additional history exists Sodium Level 06/18/2023 06/18/2022, 072 11/2021, 06/16/2022, Additional history exists COVID-19 Vaccine ( season) 2023 Depression Screening (Annual PHQ-2) 11/28/2023 Lipid (Cholesterol) [...] 09/11/2021, 09/13/2020 Influenza Vaccine Completed 10/13/2023, , 10/27/2022, Additional history exists Hepatitis B Vaccines Aged Out No long er eligible based on patient's age to complete this topic Medical Devices Implanted Type Area Demand Inspector Device Identifier Shelf Expiration Date Model / Serial / Lot Cmnt Bn Smp 20gm - [id number] Implanted:Qty : 1 on 12/30/2021 by Cyrus Polk M.D. at [facility] Bone Cement Left: Shoulder [place] 6188-1-001 / / Cmnt Bn Smp 20gm - [id number] Implanted:Qty : 1 on 12/30/2021 by Cyrus Polk M.D. at [facility] Bone Cement Left: Shoulder [place] 6188-1-001 / / Grft Dbm Grf Obl Ld 15 - [id number] - [id number] Implanted:Qty : 1 on 02/26/2022 at [facility] Bone or Tissue Left: Shoulder Medtronic 10/14/2023 [id number] / [id number] / Coil Axm 3d .4595i3q4 - [id number] Implanted:Qty : 1 on 02/16/2021 by Mustapha Castillo M.D. at [facility] Embolization Coil Medtronic 02/25/2023 QC-3-8-3D / / [id number] Description:MR Conditional 3 T or less Max YUSEF of 3 W/kg (Use Normal Mode). AAC 09/18/2021 [email or web address] Coil Axm Helical .9025q5y36 - [id number] Implanted:Qty : 1 on 02/16/2021 by Mustapha Castillo M.D. at [facility] Embolization Coil Medtronic 03/10/2023 QC-4-10-HE LIX / / [id number] Description:MR Conditional 3 T or less Max YUSEF of 3 W/kg (Use Normal Mode). AAC 09/18/2021 [email or web address] Coil Axm Helical .9332j9t41 - [id number] Implanted:Qty : 1 on 02/16/2021 by Mustapha Castillo M.D. at [facility] Embolization Coil Medtronic 11/29/2022 QC-4-10-HE LIX / / [id number] Description:MR Conditional 3 T or less Max YUSEF of 3 W/kg (Use Normal Mode). AAC 09/18/2021 [email or web address] Coil Axm Helical .9347c9d16 - [id number] Implanted:Qty : 1 on 02/16/2021 by Mustapha Castillo M.D. at [facility] Embolization Coil Medtronic 08/14/2023 -6-20-HE LIX / / [id number] Description:MR Conditional 3 T or less Max YUSEF of 3 W/kg (Use Normal Mode). AAC 09/18/2021 [email or web address] Coil Axm Helical .0005g2w19 - [id number] Implanted:Qty : 1 on 02/16/2021 by Mustapha Castillo M.D. at [facility] Embolization Coil Medtronic 07/02/2023 QC-5-15-HE LIX / / [id number] Description:MR Conditional 3 T or less Max YUSEF of 3 W/kg (Use Normal Mode). AAC 09/18/2021 [email or web address] 4mm Amplatz Micro Plug Implanted:Qty : 1 on 02/16/2021 by Mustapha Castillo M.D. at [facility] Embolization Coil Brain Gl[place]it Dayo 71526 / / [id number] Description:MRI Conditional at 1.5T or 3T Max Whole Body YUSEF of 4 W/kg. AAC 09/18/2021 https://[email or web address]/ Hardware E.G. Pins/Screws/R ods Hardware e.g. pins/screws/ro ds Neck Drl Cmp Rv Shldr Jun 2.7 - [id number] Implanted:Qty : 1 on 02/26/2022 at [facility] Hardware e.g. pins/screws/ro ds Left: Shoulder Trevor [employer] 02/05/2032 [id number] / / [id number] Scrw Mini Ream Guide Comp Jun [id number] Implanted:Qty : 1 on 02/26/2022 at [facility] Hardware e.g. pins/screws/ro ds Left: Shoulder [employer] 01/27/2032 [id number] / / [id number] Bushg Mini Ream Guide Comp Jun [id number] Implanted:Qty : 1 on 02/26/2022 at [facility] Hardware e.g. pins/screws/ro ds Left: Shoulder [employer] 02/20/2027 [id number] / / [id number] Screw 3.5 Hex Lck 4.75x15 - [id number] Implanted:Qty : 1 on 02/26/2022 at [facility] Hardware e.g. pins/screws/ro ds Left: Shoulder [employer] 02/11/2032 805655 / / [id number] Screw 3.5 Hex Lck 4.75x35 - [id number] Implanted:Qty : 1 on 02/26/2022 at [facility] Hardware e.g. pins/screws/ro ds Left: Shoulder [employer] 01/18/2032 825666 / / [id number] Screw 3.5 Hex Lck 4.75x25 - [id number] Implanted:Qty : 1 on 02/26/2022 at [facility] Hardware e.g. pins/screws/ro ds Left: Shoulder [employer] 01/08/2032 599054 / / [id number] Screw 3.5 Hex Lck 4.75x15 - [id number] Implanted:Qty : 1 on 02/26/2022 at [facility] Hardware e.g. pins/screws/ro ds Left: Shoulder [employer] 02/11/2032 094712 / / [id number] Scrw Cmp Pthrd 6.5x25 - [id number] Implanted:Qty : 1 on 02/26/2022 at [facility] Hardware e.g. pins/screws/ro ds Left: Shoulder [employer] 01/13/2032 104679 / / [id number] Knee Implant Knee Implant Bilateral: Knee Plg Ocl Amp Avp4 5 - [id number] Implanted:Qty : 1 on 02/16/2021 by Mustapha Castillo M.D. at [facility] Mesh or Patch Pedersen 11/27/2025 9-QPF676-5 05 / / [id number] Plg Ocl Amp Avpii 6 - [id number] Implanted:Qty : 1 on 02/16/2021 by Mustapha Castillo M.D. at [facility] Mesh or Patch Pedersen 08/27/2025 9-AVP2-006 / / [id number] Shoulder Implant Shoulder Implant Left: Shoulder Bsplt Glnd Cmp Rv Aug Sm - [id number] Implanted:Qty : 1 on 02/26/2022 at [facility] Shoulder Implant Left: Shoulder [employer] 02/04/2027 [id number] / / [id number] Hum Brng Cmp Vve Rtn +3x40 - [id number] Implanted:Qty : 1 on 05/18/2022 by Cyrus Polk M.D. at [facility] Shoulder Implant Left: Shoulder [employer] 04/27/2025 [id number] / / [id number] Comp Glnd Vrs Dl Std 40 - [id number] Implanted:Qty : 1 on 05/18/2022 by Cyrus Polk M.D. at [facility] Shoulder Implant Left: Shoulder [employer] 04/20/2032 [id number] / / [id number] Hum Tr Cmp Rvrs Std Std - [id number] Implanted:Qty : 1 on 05/18/2022 by Cyrus Polk M.D. at [facility] Shoulder Implant Left: Shoulder [employer] [id number] / / [id number] Bsplt Glnd Cmp Tprd 25 - [id number] Implanted:Qty : 1 on 05/18/2022 by Cyrus Polk M.D. at [facility] Shoulder Implant Left: Shoulder Trevro Biomet 02/10/2032 [id number] / / [id number] [facility] Rvrs Prim Mini 9 - [id number] Implanted:Qty : 1 on 05/18/2022 by Cyrus Polk M.D. at [facility] Shoulder Implant Left: Shoulder [employer] 09/09/2031 935586 / / [id number] Medtronic Spinal Cord Stimulator Implanted:01/2020 (Quantity not on file) Spinal Cord Stimulator Back Medtronic 01862 / [id number] / [id number] Description:Acceptd[employer] Spinal Cord Stimulator model #85437. As of 02/18/23 patient was able to [...] with the patient during future MRI appointments. [facility] 06/17/22 Explanted Type Area Demand Inspector Device Identifier Shelf Expiration Date Model / Serial / Lot [facility] Cmp Rvrs Prim Std 5 - [id number] Implanted:Qty : 1 on 12/30/2021 by Cyrus Polk M.D. at [facility] Explanted:Qty : 1 on 02/26/2022 at [facility] Shoulder Implant Left: Shoulder [employer] 10/17/2025 [id number] / / [id number] [facility] Cmp Rvrs - [id number] Implanted:Qty : 1 on 12/30/2021 by Cyrus Polk M.D. at [facility] Explanted:Qty : 1 on 02/26/2022 at [facility] Shoulder Implant Left: Shoulder [employer] 10/07/2031 739075 / / [id number] Hum Hd Vrs Dl 72a36b08 - [id number] Implanted:Qty : 1 on 12/30/2021 by Cyrus Polk M.D. at [facility] Explanted:Qty : 1 on 02/26/2022 at [facility] Shoulder Implant Left: Shoulder [employer] 05/29/2031 288260 / / [id number] Hum Stm Cmp Rvrs Prim Std 10 - [id number] Implanted:Qty : 1 on 02/26/2022 at [facility] Explanted:Qty : 1 on 05/18/2022 at [facility] Shoulder Implant Left: Shoulder [employer] 12/16/2029 831094 / / [id number] Bsplt Glnd Cmp 36 - [id number] Implanted:Qty : 1 on 02/26/2022 at [facility] Explanted:Qty : 1 on 05/18/2022 at [facility] Shoulder Implant Left: Shoulder [employer] 01/15/2032 [id number] / / [id number] Hum Brng Cmp Vve Rvrs Std 36 - [id number] Implanted:Qty : 1 on 02/26/2022 at [facility] Explanted:Qty : 1 on 05/18/2022 at [facility] Shoulder Implant Left: Shoulder [employer] 12/26/2026 [id number] / / [id number] Hum Tr Cmp Rvrs Std +6 - [id number] Implanted:Qty : 1 on 02/26/2022 at [facility] Explanted:Qty : 1 on 05/18/2022 at [facility] Shoulder Implant Left: Shoulder [employer] 01/31/2032 [id number] / / [id number] Spinal Cord Stimulator Explanted: (Quantity not on file) Spinal Cord Stimulator Pelvis [employer] Description:Device was expla nted on 03-10-2020 per [employer]. SDN 03-19-21 Advance Directives For more information, please contact: [phone] * Full Code (Latest Code Status on File) Date Activated Date Inactivated Comments 06/16/2022 1:22 AM 06/18/2022 1:00 PM Question Answer Comments Full Code: Discussed * Full Code Date Activated Date Inactivated Comments 05/18/2022 4:09 PM 05/20/2022 5:04 PM Question Answer Comments Full Code: Discussed * Full Code Date Activated Date Inactivated Comments 02/26/2022 2:52 PM 02/27/2022 2:24 PM Question Answer Comments Full Code: Discussed * Full Code Date Activated Date Inactivated Comments 12/30/2021 5:12 PM 01/01/2022 7:39 PM Question Answer Comments Full Code: Discussed * Full Code Date Activated Date Inactivated Comments 02/10/2021 11:06 PM 02/17/2021 8:26 PM Question Answer Comments Full Code: Discussed Care Teams Planning Assistant Relationship Specialty Start Date End Date Elsewhere, Pcp PCP - General Family Medicine 12/25/21
--- OUTSIDE RECORDS SUMMARY | 2024-03-05 11:11 | XMS_ITS | Encounter Summary ---
Author Name Unknown Organization [facility] Address [address], [place] [address] Care Team Providers Care Advance Agent Name Role Phone Jose Holden MD Primary Care Provider Encounter Details Date Type Department Care Team (Latest Contact Info) Description 06/29/2018 Consent for Procedure/Treatme nt [facility] Pain Management [address] [facility] [place], [place] [phone] Tony Pittman MD [address] [place] [address] INFORMED CONSENT FOR TX/PROCEDURE Social [...] on filedocumented in this encounter Care Teams Advance Agent Relationship Specialty Start Date End Date Jose Holden MD [address] [place] [address] PCP - General Otolaryngology 12/14/17 documented as of this encounter
--- OUTSIDE RECORDS SUMMARY | 2024-03-05 11:11 | XMS_ITS | Encounter Summary ---
Author Name Unknown Organization [facility] Address [address], [place] [address] Care Team Providers Care Tube Winder Name Role Phone Jose Holden MD Primary Care Provider Encounter Details Date Type Department Care Team (Latest Contact Info) Description 07/10/2018 Consent for Procedure/Treatme nt [facility] Pain Management [address] [place] [address] Tony Pittman MD [address] [place] [address] INFORMED CONSENT FOR TX/PROCEDURE Social [...] on filedocumented in this encounter Care Teams Tube Winder Relationship Specialty Start Date End Date Jose Holden MD [address] [place] [address] PCP - General Otolaryngology 12/14/17 documented as of this encounter
--- OUTSIDE RECORDS SUMMARY | 2024-03-05 11:11 | XMS_ITS | Encounter Summary ---
Author Name Unknown Organization [facility] Address [address], [place] [address] Care Team Providers Care Promotions Officer Name Role Phone Jose Holden MD Primary Care Provider Encounter Details Date Type Department Care Team ([facility] st Contact Info) Description 11/10/2018 Emergency Room External to External, [place] [address] FALL/HEADACHE NECK LT SHOULDER KNEE HIP PAIN [...] on filedocumented in this encounter Care Teams Promotions Officer Relationship Specialty Start Date End Date Jose Holden MD [address] [place] [phone] PCP - General Otolaryngology 12/14/17 documented as of this encounter
--- OUTSIDE RECORDS SUMMARY | 2024-03-05 11:11 | XMS_ITS | Encounter Summary ---
Author Name Unknown Organization [facility] Address [address] [address] Care Team Providers Care Apartment Property Manager Name Role Phone Jose Holden MD Primary Care Provider Encounter Details Date Type Department Care Team (Latest Contact Info) Description 06/20/2018 Consent for Procedure/Treatme nt [facility] Pain Management [address] [facility] [place] [address] Tony Pittman MD [address] [place] [address] INFORMED CONSENT FOR TX/PROCEDURE Social [...] on filedocumented in this encounter Care Teams Apartment Property Manager Relationship Specialty Start Date End Date Jose Holden MD [address] [place] [address] PCP - General Otolaryngology 12/14/17 documented as of this encounter
--- OUTSIDE RECORDS SUMMARY | 2024-03-05 11:11 | XMS_ITS | Referral Summary ---
Author Name Unknown Organization [facility] Address [address] [place] [address] Care Team Providers Care Director Of Patient Safety Name Role Phone Elsewhere, Pcp Primary Care Provider Unavailabl e Source Comments Patient records contain information from all sites at [facility]. For routine questions regarding patient records, call [phone] during business hours, M-F 8:00 AM - 5:00 PM Central Time. Record requests for emergency care only can be directed to [phone] at any time.[facility] Allergies Active Allergy Reactions Criticality Noted Date [...] mouth at bedtime. 0 01/28/2022 Active multivit-min/iron/fo lic/osz852 (HAIR, SKIN AND NAILS ADVANCED ORAL) Take [...] Overview: Added automatically from request for surgery [id number] Nicotine Dependence Unspecified 11/29/2017 Other [facility] Current Drug Therapy 12/30/2016 Opioid Moderate Or [...] How often do you attend chur or roman catholic services? Patient declined 05/17/2022 Do you belong to any clubs o r organizations such as worship groups, unions, fraternal [...] Answer Date Recorded PHQ-2 Score 3 02/11/2021 [facility] - Occupational [...] the money to buy more. Sometimes true 06 / Within the past 12 months, t he [...] on file Medical Devices Implanted Type Area Floor Installation Mechanic Device Identifier Shelf Expiration Date Model / Serial / Lot Cmnt Bn [facility] 20gm - [id number] Implanted:Qty : 1 on 12/30/2021 by Cyrus Polk M.D. at [facility] Bone Cement Left: Shoulder [place] 6188-1-001 / / Cmnt Bn [facility] 20gm - [id number] Implanted:Qty : 1 on 12/30/2021 by yCrus Polk M.D. at [facility] Bone Cement Left: Shoulder [place] 6188-1-001 / / Grft Dbm Grf Obl Ld 15 - [id number] - [id number] Implanted:Qty : 1 on 02/26/2022 at [facility] Bone or Tissue Left: Shoulder Medtronic 10/14/2023 [id number] / [id number] / Coil Axm 3d .6741r5i9 - [id number] Implanted:Qty : 1 on 02/16/2021 by Mustapha Castillo M.D. at [facility] Embolization Coil Medtronic 02/25/2023 QC-3-8-3D / / [id number] Description:MR Conditional 3 T or less Max YUSEF of 3 W/kg (Use Normal Mode). AAC 09/18/2021 [email or web address] Coil Axm Helical .1001g3k13 - [id number] Implanted:Qty : 1 on 02/16/2021 by Mustapha Castillo M.D. at [facility] Embolization Coil Medtronic 03/10/2023 QC-4-10-HE LIX / / [id number] Description:MR Conditional 3 T or less Max YUSEF of 3 W/kg (Use Normal Mode). AAC 09/18/2021 https://[email or web address].Command [email or web address]_Coil.[email or web address] Coil Axm Helical .8869b3d33 - [id number] Implanted:Qty : 1 on 02/16/2021 by Mustapha Castillo M.D. at [facility] Embolization Coil Medtronic 11/29/2022 [facility]4-10-HE LIX / / [id number] Description:MR Conditional 3 T or less Max YUESF of 3 W/kg (Use Normal Mode). AAC 09/18/2021 https://[email or web address].Command [email or web address]_Coil.[email or web address] Coil Axm Helical .6937j3q81 - [id number] Implanted:Qty : 1 on 02/16/2021 by Mustapha Castillo M.D. at [facility] Embolization Coil Medtronic 08/14/2023 [facility]6-20-HE LIX / / [id number] Description:MR Conditional 3 T or less Max YUSEF of 3 W/kg (Use Normal Mode). [facility] 09/18/2021 https://[email or web address].Command [email or web address]_Coil.[email or web address] Coil Axm Helical .1881n8t69 - [id number] Implanted:Qty : 1 on 02/16/2021 by Mustapha Castillo M.D. at [facility] Embolization Coil Medtronic 07/02/2023 [facility]5-15-HE LIX / / [id number] Description:MR Conditional 3 T or less Max YUSEF of 3 W/kg (Use Normal Mode). AAC 09/18/2021 https://[email or web address].Command Information.HipGeojuan david/[email or web address]/MRI_Coil.pdf 4mm Amplatz Micro Plug Implanted:Qty : 1 on 02/16/2021 by Mustapha Castillo M.D. at [facility] Embolization Coil Brain Hubbub Dayo [id number] / / [id number] Description:MRI Conditional at 1.5T or 3T Max Whole Body YUSEF of 4 W/kg. AAC 09/18/2021 https://Snapkin/products/ Hardware E.G. Pins/Screws/R ods Hardware e.g. pins/screws/ro ds Neck Drl [facility] Rv Shldr Jun 2.7 - [id number] Implanted:Qty : 1 on 02/26/2022 at [facility] Hardware e.g. pins/screws/ro ds Left: Shoulder [employer] 02/05/2032 [id number] / / [id number] Scrw Mini Ream Guide Comp Jun - [id number] Implanted:Qty : 1 on 02/26/2022 at [facility] Hardware e.g. pins/screws/ro ds Left: Shoulder [employer] 01/27/2032 [id number] / / [id number] Bushg Mini Ream Guide Comp Jun - [id number] Implanted:Qty : 1 on 02/26/2022 at [facility] Hardware e.g. pins/screws/ro ds Left: Shoulder [employer] 02/20/2027 [id number] / / [id number] Screw 3.5 Hex Lck 4.75x15 - [id number] Implanted:Qty : 1 on 02/26/2022 at [facility] Hardware e.g. pins/screws/ro ds Left: Shoulder [employer] 02/11/2032 580338 / / [id number] Screw 3.5 Hex Lck 4.75x35 - [id number] Implanted:Qty : 1 on 02/26/2022 at [facility] Hardware e.g. pins/screws/ro ds Left: Shoulder [employer] 01/18/2032 965647 / / [id number] Screw 3.5 Hex Lck 4.75x25 - [id number] Implanted:Qty : 1 on 02/26/2022 at [facility] Hardware e.g. pins/screws/ro ds Left: Shoulder [employer] 01/08/2032 616264 / / [id number] Screw 3.5 Hex Lck 4.75x15 - [id number] Implanted:Qty : 1 on 02/26/2022 at [facility] Hardware e.g. pins/screws/ro ds Left: Shoulder [employer] 02/11/2032 808864 / / [id number] Scrw Cmp Pthrd 6.5x25 - [id number] Implanted:Qty : 1 on 02/26/2022 at [facility] Hardware e.g. pins/screws/ro ds Left: Shoulder [employer] 01/13/2032 [id number] / / [id number] Knee Implant Knee Implant Bilateral: Knee Plg Ocl Amp Avp4 5 - [id number] Implanted:Qty : 1 on 02/16/2021 by Mustapha Castillo M.D. at [facility] Mesh or Patch Ped[employer]en 11/27/2025 9-HUT083-0 05 / / [id number] Plg Ocl Amp Avpii 6 - [id number] Implanted:Qty : 1 on 02/16/2021 by Mustapha Castillo M.D. at [facility] Mesh or Patch [employer] 08/27/2025 9-AVP2-006 / / [id number] Shoulder Implant Shoulder Implant Left: Shoulder Bsplt Glnd Cmp Rv Aug Sm - [id number] Implanted:Qty : 1 on 02/26/2022 at [facility] Shoulder Implant Left: Shoulder [employer] 02/04/2027 [id number] / / [id number] Hum Brng Cmp Vve Rtn +3x40 - [id number] Implanted:Qty : 1 on 05/18/2022 by Cyrus Polk M.D. at [facility] Shoulder Implant Left: Shoulder [employer] 04/27/2025 [id number] / / [id number] Comp Glnd Vrs Dl Std 40 - [id number] Implanted:Qty : 1 on 05/18/2022 by Cyrus Polk M.D. at [facility] Shoulder Implant Left: Shoulder [employer] 04/20/2032 [id number] / / [id number] Hum Tr Cmp Rvrs Std Std - [id number] Implanted:Qty : 1 on 05/18/2022 by Cyrus Polk M.D. at [facility] Shoulder Implant Left: Shoulder [employer] [id number] / / [id number] Bsplt Glnd Cmp Tprd 25 - [id number] Implanted:Qty : 1 on 05/18/2022 by Cyrus Polk M.D. at [facility] Shoulder Implant Left: Shoulder [employer] 02/10/2032 [id number] / / [id number] [facility] Rvrs Prim Mini 9 - [id number] Implanted:Qty : 1 on 05/18/2022 by Cyrus Polk M.D. at [facility] Shoulder Implant Left: Shoulder [employer] 09/09/2031 158694 / / [id number] Medtronic Spinal Cord Stimulator Implanted:01/2020 (Quantity not on file) Spinal Cord Stimulator Back Medtronic 57654 / [id number] / [id number] Description:Medtronic [employer] lis Spinal Cord Stimulator model #74750. As of 02/18/23 patient was able to [...] with the patient during future MRI appointments. [facility] 06/17/22 Explanted Type Area Floor Installation Mechanic Device Identifier Shelf Expiration Date Model / Serial / Lot [facility] Rvrs Prim Std 5 - [id number] Implanted:Qty : 1 on 12/30/2021 by Cyrus Polk M.D. at [facility] Explanted:Qty : 1 on 02/26/2022 at [facility] Shoulder Implant Left: Shoulder [employer] 10/17/2025 [id number] / / [id number] [facility] Rvrs - [id number] Implanted:Qty : 1 on 12/30/2021 by Cyrus Polk M.D. at [facility] Explanted:Qty : 1 on 02/26/2022 at [facility] Shoulder Implant Left: Shoulder [employer] 10/07/2031 801501 / / [id number] Hum Hd Vrs Dl 75u35w99 - [id number] Implanted:Qty : 1 on 12/30/2021 by Cyrus Polk M.D. at [facility] Explanted:Qty : 1 on 02/26/2022 at [facility] Shoulder Implant Left: Shoulder [employer] 05/29/2031 [id number] / / [id number] Hum Stm Cmp Rvrs Prim Std 10 - [id number] Implanted:Qty : 1 on 02/26/2022 at [facility] Explanted:Qty : 1 on 05/18/2022 at [facility] Shoulder Implant Left: Shoulder [employer] 12/16/2029 192137 / / [id number] Bsplt Glnd Cmp 36 - [id number] Implanted:Qty : 1 on 02/26/2022 at [facility] Explanted:Qty : 1 on 05/18/2022 at [facility] Shoulder Implant Left: Shoulder [employer] 01/15/2032 [id number] / / [id number] Hum Brng Cmp Vve Rvrs Std 36 - [id number] Implanted:Qty : 1 on 02/26/2022 at [facility] Explanted:Qty : 1 on 05/18/2022 at [facility] Shoulder Implant Left: Shoulder [employer] 12/26/2026 [id number] / / [id number] Hum Tr Cmp Rvrs Std +6 - [id number] Implanted:Qty : 1 on 02/26/2022 at [facility] Explanted:Qty : 1 on 05/18/2022 at [facility] Shoulder Implant Left: Shoulder [employer] 01/31/2032 [id number] / / [id number] Spinal Cord Stimulator Explanted: (Quantity not on file) Spinal Cord Stimulator Pelvis [employer] Description:Device was expla nted on 03-10-2020 per [employer]. SDN 03-19-21 Advance Directives For more information, please contact: [phone] * Full Code (Latest Code Status on [...] Answer Comments Full Code: Discussed Care Teams Director Of Patient Safety Relationship Specialty Start Date End Date Elsewhere, Pcp PCP - General Family Medicine 12/25/21
--- OUTSIDE RECORDS SUMMARY | 2024-03-05 11:11 | XMS_ITS | Encounter Summary ---
Author Name Unknown Organization [facility] Address [address] [place] [address] Care Team Providers Care Prepress Technician Name Role Phone Elsewhere, Pcp Primary Care Provider Unavailabl e Reason for Referral * Outpatient (Routine) - Closed Specialty Diagnoses / Procedures Referred By Tanja baca Referred To Contact Otorhinolaryngology Diagnoses Sinus Nose Disorder Sinusitis Chronic Chris Mckeon M.D. [address] [place] [address] [facility] Referral ID Status Reason Start Date Expiration Date Visits Re quested Visits Authorized [id number] Closed 01/10/2019 01/10/2020 1 1 UNTS PAYABLE ACCOUNTANT Encounter Details Date Type Department Care Team (Late st Contact Info) Description 01/10/2019 [facility] [address] [place] [address] Chris Mckeon M.D. [address] [place] [address] Sinus Nose Disorder (Primary Dx); [...] Pending 01/31/2021 01/31/2021 01/31/2021 1 0:53 PM ACCOUNTS PAYABLE ACCOUNTANT COVID19 Pending 02/10/2021 02/11/2021 02/11/2021 1 :09 AM CDT COVID19 Pending 12/29/2021 12/29/2021 12/29/2021 4 :20 PM ACCOUNTS PAYABLE ACCOUNTANT COVID19 Pending 02/25/2022 02/25/2022 02/25/2022 3 :59 PM CDT COVID19 Pending 05/17/2022 05/17/2022 05/17/2022 2 :34 PM CDT COVID19 Pending 06/15/2022 06/15/2022 06/15/2022 8 :24 PM CDT documented as of this encounter Care Teams Prepress Technician Relationship Specialty Start Date End Date Elsewhere, Pcp PCP - General Family Medicine 12/25/21 documented as of this encounter
--- OUTSIDE RECORDS SUMMARY | 2024-03-05 11:11 | XMS_ITS | Encounter Summary ---
Author Name Unknown Organization [facility] Address [address], [place] [address] Care Team Providers Care Outside Repairer Special Name Role Phone Jose Holden MD Primary Care Provider Encounter Details Date Type Department Care Team ([facility] st Contact Info) Description 02/20/2018 Consent for Procedure/Treatme nt [facility] INFORMED CONSENT RECORD Social History [...] on filedocumented in this encounter Care Teams Outside Repairer Special Relationship Specialty Start Date End Date Jose Holden MD [address] [place] [address] PCP - General Otolaryngology 12/14/17 documented as of this encounter
[2024-03-05] MEDS: IPRAT-ALBUT 0.5-2.5 MG/3 ML NEB 1 NEB IH (11:12)
[2024-03-05] MEDS: dexAMETHasone 10 MG/ML inj IVP (11:12)
[2024-03-05 11:31] VITALS: BP 132/75; PULSE 72; RESP 14; O2SAT 98
[2024-03-05 11:57] LABS: PCR FLU A Negative PCR FLU A (Negative); PCR FLU B Negative PCR FLU B (Negative); PCR RSV Negative PCR RSV (Negative); SARS PCR* POSITIVE SARS-CoV-2 (Negative)
[2024-03-05 11:58] LABS: Chloride* 108 mmol/L (96-114); Sodium* 138 mmol/L (135-149)
[2024-03-05 11:59] LABS: Potassium* 4.1 mmol/L (3.6-5.1)
[2024-03-05 12:01] VITALS: BP 137/76; PULSE 78; RESP 12; O2SAT 93
[2024-03-05 12:01] LABS: Anion Gap 5 mEq/L (7-15); Blood Urea Nitrogen* 15 mg/dL (7-30); Carbon Dioxide* 25 mmol/L (20-32); Creatinine* 0.6 mg/dL (0.5-1.5); Est. Creatinine Clearance* 103.53; Estimated Glomerular Filt Rate 103 ml/min
[2024-03-05 12:02] LABS: Calcium* 9.1 mg/dL (8.4-10.6); Glucose* 99 mg/dL (60-115)
[2024-03-05 12:11] LABS: Troponin, Point-of-Care* 0.02 ng/ml (0.01-0.04)
[2024-03-05 12:12] LABS: NT Pro B Type NatriureticPept* 124 pg/mL
[2024-03-05 12:32] VITALS: BP 129/82; PULSE 73; RESP 14; O2SAT 95
[2024-03-05 13:02] VITALS: BP 135/82; PULSE 83; RESP 12; TEMP 36.9
== END 2024-03-05 13:03 | disposition home or self-care (01) ==
LOC: ED 11:07
PROVIDERS: Emergency Provider Family Medicine; PCP Family Medicine
DX: U07.1 COVID-19 (principal); J44.9 Chronic obstructive pulmonary disease, unspecified
CPT/HCPCS: 36415; 71046; 80048; 83880; 84484; 87631; 93005; 94640; 96374; 99284; 99285; J1100

== ENCOUNTER 2024-04-28 14:54 | Outpatient (RCR) | payer MEDICAID, SELFPAY | END 2025-04-28 10:41 | disposition home or self-care (01) | LOC: MOW 14:54 | PROVIDERS: PCP Family Medicine; Visit Provider Family Medicine | DX: Z76.0 Encounter for issue of repeat prescription (principal) | CPT/HCPCS: S5170 ==